=== PATIENT | female | born 1975 | race Caucasian/White ===

== ENCOUNTER 2018-08-16 14:58 | Emergency (ER) | payer OTHER, SELFPAY ==
[2018-08-16 14:59] VITALS: BP 191/115; PULSE 107; RESP 22; TEMP 36.3; O2SAT 98; BMI 26.1
[2018-08-16 15:08] VITALS: BP 205/125; PULSE 110; RESP 22; O2SAT 95; O2SAT 96
--- NOTE | 2018-08-16 15:18 | RAD_ITS ---
STUDY: X-RAY CHEST REASON FOR EXAM: Female, 43 years old. Short of breath. TECHNIQUE: PA and lateral views of the chest. COMPARISON: August 02, 2017 FINDINGS: The lungs are clear and expanded. There is no demonstrated pleural abnormality. Normal size heart. Normal mediastinum and aviva. Normal visualized pulmonary arteries. There is atherosclerotic calcification of the aortic arch . Normal visualized thoracic spine. Normal visualized ribs, clavicles, and shoulders. There are surgical clips within the right upper quadrant of the abdomen. RAD/Chest PA and Lateral IMPRESSION: No acute cardiopulmonary process. Electronically Signed: Laurie Yates MD at 16:26 EDT Tel , Service support ,
--- NOTE | 2018-08-16 15:18 | EKG12_ITS ---
Test Reason : SOB Blood Pressure : / mmHG Vent. Rate : 094 BPM Atrial Rate : 094 BPM P-R Int : 122 ms QRS Dur : 082 ms QT Int : 348 ms P-R-T Axes : 040 051 075 degrees QTc Int : 435 ms Normal sinus rhythm Nonspecific ST abnormality Abnormal ECG Confirmed by STEFFANY LEBLANC, IFRAH ([id number]), editor in chief newspaper [employer] BLANCO ([id number]) on 08/18/2018 1:43:15 PM Referred By: CRISELDA Confirmed By:IFRAH JETER MD
[2018-08-16 15:35] LABS: Absolute Lymphocyte Count 2.65 X10^3/ul (0.83-4.51); Absolute Neutrophil Count 3.6 X10^3/uL (2.0-7.7); Basophil# 0.02 X10^3/uL; Basophil% 0.3 % (0-1); Eosinophil# 0.07 X10^3/uL; Hematocrit 40.1 % (37-47); Hemoglobin 13.9 g/dl (12.0-15.0); Lymphocyte # 2.65 X10^3/ul (4.0); Mean Corp Hgb Conc 34.7 g/gl (32-36); Mean Corpuscular Hgb 32.1 pg (27.0-32.0); Mean Corpuscular Volume 92.6 fL (81-99); Mean Platelet Vol. 9.4 fl (6.2-12.0); Monocyte# 0.64 X10^3/uL; Monocyte% 9.2 % (0-10); Neutrophil # 3.59 X10^3/uL (2.7-7.7); Neutrophil % 51.4 % (47-70); Platelet Count 271 K/mm3 (150-450); RBC Distribution Width SD 39.8 fl (35.1-43.9); Red Blood Count 4.33 M/mm3 (4.2-5.4)
[2018-08-16] MEDS: Albuterol 2.5 MG/3 ML VIAL.NEB. INHALATION ×2 (15:35)
[2018-08-16] MEDS: Ipratropium/Albuterol Sulfate 3 ML AMPUL.NEB INHALATION (15:35)
[2018-08-16 15:36] VITALS: PULSE 94; RESP 16
[2018-08-16 15:37] LABS: POSITIVE COUNT NO; POSITIVE DIFFERENTIAL NO; POSITIVE MORPHOLOGY NO
[2018-08-16 15:52] LABS: Anion Gap 10 (5-15); BUN 9 mg/dL (7-18); BUN/Creat Ratio 11.5 RATIO (10-20); Calcium,Total 8.3 mg/dL (8.5-10.1); Chloride 102 mmol/L (98-107); Creatinine, Serum 0.78 mg/dL (0.55-1.02); EST Glomerular Filtration Rate 86 mL/min (>60); Est Glom Filt Rate - Afr Amer 104 mL/min (>60); Estimated Creatinine Clearance 81.96 ml/min; Glucose 172 mg/dL (74-106); Potassium 3.2 mmol/L (3.5-5.1); Sodium Level 136 mmol/L (136-145)
[2018-08-16] MEDS: amLODIPine 5 MG Tablet PO (15:54)
[2018-08-16 15:56] VITALS: BP 174/102; PULSE 102; RESP 20; O2SAT 93
[2018-08-16 16:08] LABS: BNP,B-Type NATRIURETIC PEPTIDE 65.7 pg/mL (0-100)
--- NOTE | 2018-08-16 16:42 | ED.VISSUMM ---
- ER Visit Summary Date of Service: 08/16/18 Chief Complaint: Shortness of breath History of Present Illness: The patient is a 43 F presenting for evaluation secondary to cough and shortness of breath. Patient has an underlying history of hypertension and asthma. Patient reports that she has been having issues with shortness of breath and cough over the course of the last week. Patient reports that she went to urgent care to over the weekend, was started on a course of azithromycin as well as steroids. She has been frequently using her inhaler at home. She also states that she has been having some elevation of her temperature 100.3 as well as elevated blood pressures. Patient reports that she supposed to start a new blood pressure medication today, but noted that she had blood pressures in the 190s and was recommended to come to the emergency department. Patient does state that she has mild amount of chest tightness associated with this she describes it as a mild type and intermittent sharp type pain that is not exertional. Review of systems otherwise negative. Physical Examination: Vital signs notable for blood pressure 191/115 pulse ox 98% heart rate 107. Well-nourished female no acute distress. Moist mucous membranes. Neck is supple heart was minimally tachycardic and regular. Lung sounds showed evidence of wheezes with no respiratory distress or retractions. Abdomen soft nontender no peripheral edema 2+ peripheral pulses bilaterally symmetric, skin normal color no rash remainder physical otherwise unremarkable. Test Results: EKG shows a sinus rhythm of [address] segments normal T waves no evidence of acute ischemia or arrhythmia. PA and lateral chest x-ray by my personal and radiology review is negative. CBC unremarkable, chemistry shows mild hypokalemia 3.2 troponin negative BNP negative Emergency Department Course and Treatment: Patient presented secondary to shortness of breath. She does have a history of hypertension with a recent admission for hypertensive urgency. A workup for endorgan damage was performed. EKG was negative, CBC chemistry troponin and BNP were negative, chest x-ray was normal. Patient was treated with albuterol Atrovent and Norvasc and had improvement of her respiratory symptoms and blood pressure on repeat evaluation. At this point I believe the patient likely just requires a little bit longer of a prednisone taper. She will be provided this. Patient was discharged in stable and improved condition. Disposition: Discharge Impression: 1. Asthma exacerbation 2. Hypertension This note was generated with [employer] software. It may contain incorrect words, spelling, and punctuation that were not noted in review of the chart prior to signing 0 ED Disposition - Plan for ED Patient: Disposition: Home or Assisted Living Chief Complaint: Shortness of Breath Diagnosis: Asthma exacerbation Instructions: ED Bronchitis Asthmatic Prescriptions: MethylPREDNISolone DosePak [Medrol DosePak] 4 mg PO UD #1 box Referrals: Bernarda Amaro DO [Primary Care Provider] - 5-7 Days
[2018-08-16 16:58] VITALS: BP 178/94; PULSE 95; RESP 20; O2SAT 94
== END 2018-08-16 17:00 | disposition home or self-care (01) ==
PROVIDERS: Emergency Provider Emergency Medicine
DX: J45.901 Unspecified asthma with (acute) exacerbation (principal); I10 Essential (primary) hypertension; Z79.899 Other long term (current) drug therapy; Z72.0 Tobacco use
CPT/HCPCS: 71046; 80048; 83880; 84484; 85025; 93005; 94640; 99285; A4216

== ENCOUNTER 2018-09-04 21:39 | Emergency (ER) | payer OTHER, SELFPAY ==
[2018-09-04 21:39] VITALS: BP 167/98; PULSE 93; RESP 17; TEMP 37; O2SAT 98; BMI 25.9
[2018-09-04] MEDS: Ipratropium/Albuterol Sulfate 3 ML AMPUL.NEB INHALATION (23:39)
[2018-09-04 23:40] VITALS: PULSE 98; RESP 16
[2018-09-04] MEDS: Azithromycin 250 MG Tablet 500 MG PO (23:50)
--- NOTE | 2018-09-05 00:43 | ED.VISSUMM ---
- ER Visit Summary Date of Service: 09/05/18 Chief Complaint: Shortness of breath History of Present Illness: The patient is a 43 F who presents with shortness of breath that is been getting worse over the past 2 days. Patient admits to a cough with some clear sputum. Patient admits to some pain in her chest with coughing but denies any other chest pain. Patient states her breathing is worse with any exertion. Patient admits to some subjective chills but she did not take her temperature at home. Patient also admits to a mild headache. Patient states she was recently treated with bronchitis and started to feel better but now she feels like it is coming back. Patient smokes 1 pack of cigarettes per day. Physical Examination: Vital signs are stable. Patient is afebrile. Patient is in no acute distress. Oral mucosa is pink and moist. Neck is supple. Trachea is midline. There is no JVD noted. Heart was regular rate and rhythm. Lungs showed diffuse expiratory wheezing. There is good respiratory effort noted. Abdomen is soft. Bowel sounds are normal. There is no tenderness. Cranial nerves II through XII are intact. There are no focal motor or sensory deficits noted. The remaining physical exam is within normal limits. Emergency Department Course and Treatment: Patient was given a DuoNeb aerosol here. Patient felt better on reevaluation. Patient was given her first dose of Zithromax here. Patient was given a prescription for Zithromax. Patient was instructed to follow-up with her primary care physician in 7-10 days. Patient was advised to quit smoking. Patient understood and was agreeable with the plan. All questions were answered. Disposition: Discharge home Impression: Acute bronchitis This note was generated with [employer] dictation software. It may contain incorrect words, spelling, and punctuation that were not noted in review of the chart prior to signing ED Disposition - Plan for ED Patient: Disposition: Home or Assisted Living Chief Complaint: Shortness of Breath Diagnosis: Bronchitis, Tobacco use disorder Instructions: ED Bronchitis Asthmatic Prescriptions: Azithromycin [Zithromax] 250 mg PO DAILY #4 tab Referrals: Bernarda Amaro DO [NON-STAFF] -
[2018-09-05 00:50] VITALS: RESP 16
--- NOTE | 2018-09-05 13:41 | CM.ED ---
ED CALLBACK: Follow-up call placed to patient with no answer. Voicemail left with return contact information.
== END 2018-09-05 00:59 | disposition home or self-care (01) ==
PROVIDERS: Emergency Provider Emergency Medicine
DX: J20.9 Acute bronchitis, unspecified (principal); J45.909 Unspecified asthma, uncomplicated; I10 Essential (primary) hypertension; F32.9 Major depressive disorder, single episode, unspecified; F41.9 Anxiety disorder, unspecified; F17.210 Nicotine dependence, cigarettes, uncomplicated; Z79.899 Other long term (current) drug therapy
CPT/HCPCS: 94640; 99282

== ENCOUNTER 2018-09-12 08:33 | Emergency (ER) | payer OTHER, SELFPAY ==
[2018-09-12 08:34] VITALS: BP 172/104; PULSE 86; RESP 16; TEMP 36.4; O2SAT 93; BMI 25.9
--- NOTE | 2018-09-12 08:53 | RAD_ITS ---
STUDY: X-RAY CHEST REASON FOR EXAM: Female, 43 years old. Cough. TECHNIQUE: PA and lateral views of the chest. COMPARISON: Comparison is made with prior study dated August 16, 2019. FINDINGS: Hyperinflation. Stable mild increased markings in the lingular segment of the left upper lobe suggestive of mild scarring. There is no demonstrated pleural abnormality. Normal size heart. Normal mediastinum and aviva. Normal visualized pulmonary arteries. Normal visualized aortic arch and descending thoracic aorta. Normal visualized thoracic spine. Normal visualized ribs, clavicles, and shoulders. Surgical clips are seen in the right upper quadrant most likely secondary to prior cholecystectomy. RAD/Chest PA and Lateral IMPRESSION: Hyperinflation. No acute abnormality is seen. Electronically Signed: Guy Roger MD at 9:26 EDT Tel [phone], Service support ,
--- NOTE | 2018-09-12 08:56 | ED.DCSUM_ITS ---
- ER Visit Summary Date of Service: 09/12/18 Chief Complaint: Cough History of Present Illness: The patient is a 43 F who states for the past month she has been battling a cough. On 08/15 she was seen in urgent care given a prescription for Z-Mario and prednisone. Diagnosis at that time was bronchitis. 918 she was seen in the emergency department had negative labs and a chest x- ray. 09/04 she was seen in the emergency department again and given a second Z- Mario. Today, 09/12, she was sent to the emergency department from urgent care due to a pulse ox of 90% after breathing treatments. Patient is a longtime smoker and her last cigarette was last evening at approximately 2300 hrs. Patient notes some rhinorrhea. Occasional sputum production. No fevers. She states that she used to get frequent bronchitis but has not had this for 6 years. Reportedly has a history of asthma and was on Symbicort but it has . Physical Examination: Afebrile vital signs are stable pulse oximetry is at 93% on room air Gen: Well-nourished well-developed Head: Normocephalic atraumatic Eyes: Perrl EOMI ENT: TMs clear turbinate edema moist mucous membranes Neck: Supple no lymphadenopathy no JVD nontender CVS: Regular rate rhythm no murmurs normal S1-S2 Respiratory: No distress clear to auscultation bilaterally chest nontender persistent dry cough Abdomen: Soft nontender nondistended normal bowel sounds no masses Back: Nontender Extremity: Nontender no edema Skin: Normal color no rash Neuro: alert orientated ?3 CN II-XII intact normal strength sensation reflexes gait cerebellar Psych: Normal affect normal mood Test Results: Chest x-ray shows increased markings in the lingula compared to her chest x-ray from last month. Emergency Department Course and Treatment: Patient ambulates not hypoxic at about 95%. She received a DuoNeb but her cough is improved. Patient has had antibiotics in the past month and evidence of increased markings probable pneumonia in the left lingula. Therefore we will choose Levaquin. She is almost out of her albuterol MDI and I will write for another one and for a spacer as she is not currently using one. I will also place her on tapering dose of prednisone. She is on the schedule to see primary care on Wednesday. Return if worsening or concerns. Impression: 1. Pneumonia This note was generated with [employer] dictation software. It may contain incorrect words, spelling, and punctuation that were not noted in review of the chart prior to signing ED Disposition - Plan for ED Patient: Disposition: Home or Assisted Living Chief Complaint: Cough Instructions: ED Pneumonia Adult Prescriptions: Albuterol Inhaler [Ventolin Hfa] 2 puff INHALATION Q4H PRN PRN #1 inhaler PRN Reason: Wheezing Levofloxacin [Levaquin] 750 mg PO DAILY #5 tablet Prednisone [Deltasone] 60 mg PO DAILY #24 tablet Referrals: Abbe Clark MD [STAFF PHYSICIAN] - (as scheduled)
[2018-09-12 09:14] VITALS: RESP 20; O2SAT 95
[2018-09-12] MEDS: Ipratropium/Albuterol Sulfate 3 ML AMPUL.NEB INHALATION (09:25)
[2018-09-12 09:28] VITALS: PULSE 102; RESP 18
[2018-09-12 10:28] VITALS: PULSE 95; RESP 15; O2SAT 100
--- NOTE | 2018-09-13 09:59 | CM.ED ---
ED CALLBACK: Follow-up call placed to patient with no answer. Voicemail left with return contact information.
== END 2018-09-12 11:00 | disposition home or self-care (01) ==
PROVIDERS: Emergency Provider Emergency Medicine
DX: J18.9 Pneumonia, unspecified organism (principal); J45.909 Unspecified asthma, uncomplicated; I10 Essential (primary) hypertension; F17.210 Nicotine dependence, cigarettes, uncomplicated; Z79.899 Other long term (current) drug therapy
CPT/HCPCS: 71046; 94640; 94760; 99282

== ENCOUNTER 2019-07-25 20:18 | Emergency (ER) | payer OTHER, SELFPAY ==
[2019-07-25 20:18] VITALS: BP 125/74; PULSE 99; RESP 15; TEMP 36.6; O2SAT 95; BMI 27.9
--- NOTE | 2019-07-25 20:35 | EKG12_ITS ---
Test Reason : DIZZINESS Blood Pressure : / mmHG Vent. Rate : 087 BPM Atrial Rate : 087 BPM P-R Int : 134 ms QRS Dur : 082 ms QT Int : 370 ms P-R-T Axes : 058 046 048 degrees QTc Int : 445 ms Normal sinus rhythm Normal ECG Confirmed by RENETTA MALDONADO ([id number]), senior technical editor KIMBERLEY NGUYỄN ([id number]) on 08/01/2019 10:04:15 AM Referred By: RONALD Confirmed By:RENETTA MALDONADO
[2019-07-25 20:36] LABS: Bedside Glucose 228 mg/dL (70-110)
--- NOTE | 2019-07-25 20:49 | ED.VIS.GEN ---
History of Present Illness Chief Complaint: Numb/Ting Informant: Patient Onset: Weeks Context: Gradual Onset Timing: Intermittent Current Severity: Moderate Maximum Severity: Moderate Narrative: The patient presents to the emergency department with elevated blood sugar and paresthesias. She states that she was a prediabetic and has been using diet but is never been diagnosed as a form of diabetic and is not on medications. She states over the past 2 weeks, she is noticed that her sugars been running in the 200s and 300s. She does admit to increased urinary frequency. She states that she is also had some generalized weakness is been feeling paresthesias in bilateral arms and legs. She denies any chest pain or shortness of breath. She does admit to occasional alcohol use. She denies headaches, visual change, fevers, or chills. Prior similar symptoms: No Recent Illness/Hospitalization: No Past Medical History - Allergies and Home Meds Allergies/Adverse Reactions: Allergies No Known Allergies Allergy (Verified 07/25/19 20:18) Primary Care Physician: Abbe Clark MD [Primary Care Provider] - 2 Days Prior records reviewed: Yes Past Medical History: - - htn Surgical History: cholecystectomy, - - endoscopic drainage of a pancreatic cyst. Smoking Status: Current every day smoker - Family History Maternal Family History: Reports: No pertinent history Paternal Family History: Reports: Heart Disease, Hypertension Review of Systems General: Reports: Malaise Eyes: Denies: Visual changes - bilaterally, Diplopia ENT: Denies: Rhinorrhea, Sore throat Cardiovascular: Denies: Chest pain, Palpitations Respiratory: Denies: Dyspnea, Cough, Dyspnea on exertion Gastrointestinal: Reports: Nausea Genitourinary: Denies: Dysuria, Hematuria, Frequency Musculoskeletal: Denies: Back pain, Extremity Pain Skin: Denies: Rash, Wounds Neurological: Reports: Parasthesia Physical Exam Vital Signs/Narrative: Vital Signs Temp Pulse Resp BP Pulse Ox 07/25/19 20:18 97.9 F 99 15 125/74 H 95 Inital Vital Signs reviewed: Yes General: Well nourished, Well developed, No Acute Distress Head: Normocephalic, Atraumatic Eyes: Perrl, EOMI ENT: Moist mucous membranes, No rhinorrhea Neck: Supple, Nontender Cardiovascular: Regular rate, Regular rhythm, No murmurs Respiratory: No distress, CTA bilaterally, Chest nontender Abdomen: Soft, Nontender, Nondistended, Normal bowel sounds Back: Nontender, Normal Inspection Extremities: Nontender, No edema Skin: Normal color, No rash Neurological: Alert, Oriented x3, Cranial nerves II-XII grossly intact, Normal Strength, Normal Sensation Psychological: Normal affect, Normal Mood Diagnostic/Tx/Re-eval Abnormal Lab Results 07/25/19 07/25/19 07/25/19 20:27 20:45 20:45 WBC RBC Hgb Hct MCV MCH MCHC RDW Std Deviation RDW Coeff of Braxton Plt Count MPV Immature Gran % (Auto) Neut % (Auto) Lymph % (Auto) [place] % (Auto) Eos % (Auto) Baso % (Auto) Absolute Neuts (auto) Absolute Lymphs (auto) Nucleated RBC % Sodium Potassium Chloride Carbon Dioxide Anion Gap BUN Creatinine Estim Creat Clear Calc Est GFR (MDRD) Af Amer Est GFR (MDRD) Non-Af BUN/Creatinine Ratio Glucose Calcium Total Bilirubin AST ALT Alkaline Phosphatase Total Protein Albumin Globulin Albumin/Globulin Ratio Urine Color Straw Urine Clarity Clear Urine pH 6.5 Ur Specific [place] 1.005 Urine Protein Negative Urine Glucose (UA) 250 H Urine Ketones Negative Urine Occult Blood Negative Urine Nitrite Negative Urine Bilirubin Negative Urine Urobilinogen Normal Ur Leukocyte Esterase Negative Urine RBC 0 SEEN Urine WBC 0 SEEN Ur Squamous Epith Cells 0 SEEN Urine Bacteria 0 SEEN Urine Mucus 0 SEEN Urine Test Negative Ethyl Alcohol POC Glucose 228 H 07/25/19 07/25/19 07/25/19 20:50 20:50 20:50 WBC 8.4 RBC 4.47 Hgb 14.4 Hct 42.2 MCV 94.4 MCH 32.2 H MCHC 34.1 RDW Std Deviation 40.7 RDW Coeff of Braxton 11.7 Plt Count 257 MPV 10.0 Immature Gran % (Auto) 0.200 Neut % (Auto) 54.7 Lymph % (Auto) 31.4 [place] % (Auto) 9.1 Eos % (Auto) 4.2 Baso % (Auto) 0.4 Absolute Neuts (auto) 4.6 Absolute Lymphs (auto) 2.63 Nucleated RBC % 0 Sodium 141 Potassium 3.5 Chloride 109 H Carbon Dioxide 24.0 Anion Gap 8 BUN 9 Creatinine 0.62 Estim Creat Clear Calc 102.07 Est GFR (MDRD) Af Amer 136 Est GFR (MDRD) Non-Af 112 BUN/Creatinine Ratio 14.5 Glucose 222 H Calcium 8.5 Total Bilirubin 0.20 AST 14 L ALT 27 Alkaline Phosphatase 80 Total Protein 7.5 Albumin 3.5 Globulin 4.0 Albumin/Globulin Ratio 0.9 Urine Color Urine Clarity Urine pH Ur Specific [place] Urine Protein Urine Glucose (UA) Urine Ketones Urine Occult Blood Urine Nitrite Urine Bilirubin Urine Urobilinogen Ur Leukocyte Esterase Urine RBC Urine WBC Ur Squamous Epith Cells Urine Bacteria Urine Mucus Urine Test Ethyl Alcohol 248.0 POC Glucose - Rhythm Strip Rhythm Strip: Sinus Rhythm Rate: 80 Ectopy: None - EKG Initial EKG Interpretation: Sinus Rhythm, No Acute Injury Pattern Prior: Unchanged - Medical Decision Making Patient presents with diffuse paresthesias and generalized weakness. Her blood sugars been running high. She states that she does have a history of diabetes, but has been off her medication for some time because she lost her insurance. Metabolic work-up was pursued. I do feel that the patient's symptoms are likely multifactorial. My suspicion is that this is dehydration coupled with her uncontrolled diabetes and then intermittent alcohol use. With fluids, the patient symptoms are improved. Her EKG was unremarkable. She has a normal anion gap and electrolytes. I am going to restart the patient on her metformin. She was counseled on importance of diet and exercise. She will be discharged to follow-up with primary care for reevaluation. Impression 1. Hyperglycemia 2. Paresthesias ED Disposition - Plan for ED Patient: Instructions: DIABETES, General Info Prescriptions: Metformin HCl 500 mg PO BID #60 tab Prescription Printed Referrals: Abbe Clark MD [Primary Care Provider] - 2 Days
[2019-07-25] MEDS: 0.9% Normal Saline 1,000 ML 1000 ML IV (20:50)
[2019-07-25 20:58] LABS: Bacteria 0 SEEN /hpf (None Seen); Mucous, Urine 0 SEEN /hpf (<or=2+); Red Blood Cells-Urine 0 SEEN /hpf (0-5); Squamous Epithelial Cells - UA 0 SEEN /hpf (5-10); White Blood Cells 0 SEEN /hpf (0-5)
[2019-07-25 21:00] LABS: Absolute Lymphocyte Count 2.63 X10^3/uL (0.83-4.51); Absolute Neutrophil Count 4.6 X10^3/uL (2.0-7.7); Basophil# 0.03 X10^3/uL; Basophil% 0.4 % (0-1); Eosinophil# 0.35 X10^3/uL; Eosinophils% 4.2 % (0-5); Hematocrit 42.2 % (37-47); Hemoglobin 14.4 g/dL (12.0-15.0); Lymphocyte # 2.63 X10^3/ul (4.0); Lymphocyte % 31.4 % (19-41); Mean Corp Hgb Conc 34.1 g/dL (32-36); Mean Corpuscular Hgb 32.2 pg (27.0-32.0); Mean Corpuscular Volume 94.4 fL (81-99); Monocyte# 0.76 X10^3/uL; Monocyte% 9.1 % (0-10); NRBC Flagged by Analyzer 0 % (0-5); Neutrophil # 4.58 X10^3/uL (2.7-7.7); Neutrophil % 54.7 % (47-70); Platelet Count 257 K/mm3 (150-450); RBC Distribution Width CV 11.7 % (11.6-14.6); RBC Distribution Width SD 40.7 fl (35.1-43.9); Red Blood Count 4.47 M/mm3 (4.2-5.4); White Blood Count 8.4 K/mm3 (4.4-11.0)
[2019-07-25 21:01] LABS: Color, Urine Straw (Yellow); Glucose, Dipstick 250 mg/dl (Normal); Ketone-Dipstick Negative (Negative); Leukocyte Esterase-Dipstick Negative /ul (Negative); Nitrite-Dipstick Negative (Negative); Occult Blood-Urine Negative /ul (Negative); Protein-Dipstick Negative (Negative); Specific Gravity, Urine 1.005 (1.002-1.030); Urine Bilirubin Dipstick Negative (Negative); Urine Clarity Clear (Clear); Urine Urobilinogen Normal (Normal); Urine pH 6.5 (5.0 - 8.0)
[2019-07-25 21:05] LABS: Internal QC Validated? YES +Cl - CLEAR BKGD; Pregnancy, Urine Negative Negative
[2019-07-25 21:16] LABS: ALB/GLOB Ratio 0.9 RATIO (0.9-2.4); AST(SGOT) 14 U/L (15-37); Alanine Aminotransfer ALT/SGPT 27 U/L (13-56); Albumin, Serum 3.5 g/dL (3.2-5.0); Alkaline Phosphatase 80 U/L (45-117); Anion Gap 8 (5-15); BUN 9 mg/dL (7-18); BUN/Creat Ratio 14.5 RATIO (10-20); Calcium,Total 8.5 mg/dL (8.5-10.1); Chloride 109 mmol/L (98-107); Creatinine, Serum 0.62 mg/dL (0.55-1.02); EST Glomerular Filtration Rate 112 mL/min (>60); Est Glom Filt Rate - Afr Amer 136 mL/min (>60); Estimated Creatinine Clearance 102.07 ml/min; Glucose 222 mg/dL (74-106); Potassium 3.5 mmol/L (3.5-5.1); Protein, Total 7.5 g/dL (6.4-8.2); Sodium Level 141 mmol/L (136-145)
[2019-07-25 21:46] VITALS: BP 128/72; PULSE 84; RESP 18; O2SAT 98
== END 2019-07-25 21:51 | disposition home or self-care (01) ==
LOC: ED 20:54
PROVIDERS: Emergency Provider Emergency Medicine; Family Provider Internal Medicine; PCP Internal Medicine
DX: E11.65 Type 2 diabetes mellitus with hyperglycemia (principal); R20.2 Paresthesia of skin; I10 Essential (primary) hypertension; F17.200 Nicotine dependence, unspecified, uncomplicated; Z79.84 Long term (current) use of oral hypoglycemic drugs; Z79.899 Other long term (current) drug therapy
CPT/HCPCS: 80053; 80320; 81001; 81025; 82962; 85025; 93005; 96360; 99285; J7030; G0480

== ENCOUNTER → 2020-10-14 08:28 | Outpatient (CLI) | payer BC, SELFPAY ==
[2020-10-14 10:47] LABS: ALB/GLOB Ratio 0.9 RATIO (0.9-2.4); AST(SGOT) 11 U/L (15-37); Alanine Aminotransfer ALT/SGPT 31 U/L (13-56); Albumin, Serum 3.6 g/dL (3.2-5.0); Alkaline Phosphatase 74 U/L (45-117); Anion Gap 8 (5-15); BUN 14 mg/dL (7-18); BUN/Creat Ratio 18.9 RATIO (10-20); Calcium,Total 9.1 mg/dL (8.5-10.1); Chloride 99 mmol/L (98-107); Cholesterol 214 mg/dL (200); Creatinine, Serum 0.74 mg/dL (0.55-1.02); EST Glomerular Filtration Rate 91 mL/min (>60); Est Glom Filt Rate - Afr Amer 110 mL/min (>60); Glucose 198 mg/dL (74-106); High Density Lipoprotein 53 mg/dL; Potassium 4.2 mmol/L (3.5-5.1); Protein, Total 7.6 g/dL (6.4-8.2); Sodium Level 136 mmol/L (136-145); Triglycerides 178 mg/dL; Very Low Density Lipoprotein 36 mg/dL (5-40)
[2020-10-14 11:10] LABS: Hemoglobin A1c 6.6 % (3.8-5.6)
--- OUTSIDE RECORDS SUMMARY | 2020-11-20 05:43 | XMS RPT_ITS ---
:1975 Author Organization OHIP Care Team Providers Name Role Phone TESTRAKE Attending Unavailable CLARK, H Primary Care Unavailable TESTRAKE Referring Unavailable CLARK, H Primary Care Unavailable TESTRAKE Referring Unavailable CLARK, H Primary Care Unavailable OLDER, (COMBUSTION ENGINEER) Attending Unavailable CLARK, H Primary Care Unavailable GUALBERTO (PT) Attending Unavailable TESTRAKE Referring Unavailable TESTRAKE Attending Unavailable CLARK, H Primary Care Unavailable CLARK, H Primary Care Unavailable TESTRAKE Attending Unavailable CLARK, H Primary Care Unavailable TESTRAKE Referring Unavailable CLARK, H Primary Care Unavailable CLARK, H Referring Unavailable CLARK, H Primary Care Unavailable OLDER, (COMBUSTION ENGINEER) Referring Unavailable CLARK, H Primary Care Unavailable OLDER, (COMBUSTION ENGINEER) Referring Unavailable CLARK, H Primary Care Unavailable OLDER, (COMBUSTION ENGINEER) Referring Unavailable CLARK, H Primary Care Unavailable OLDER, (COMBUSTION ENGINEER) Referring Unavailable CLARK, H Primary Care Unavailable OLDER, (COMBUSTION ENGINEER) Referring Unavailable CLARK, H Primary Care Unavailable TESTRAKE Attending Unavailable CLARK, H Primary Care Unavailable TESTRAKE Referring Unavailable CLARK, H Primary Care Unavailable TESTRAKE Referring Unavailable TESTRAKE Attending Unavailable TESTRAKE Referring Unavailable TESTRAKE Attending Unavailable CLARK, H Primary Care Unavailable TESTRAKE Referring Unavailable CLARK, H Primary Care Unavailable CLARK, H Primary Care Unavailable OLDER, (COMBUSTION ENGINEER) Referring Unavailable CLARK, H Primary Care Unavailable HEIDENREICH, (COMBUSTION ENGINEER) Attending Unavailable CONNELL, (COMBUSTION ENGINEER) Referring Unavailable CLARK, H Primary Care Unavailable CLARK, H Primary Care Unavailable TESTRAKE Referring Unavailable GANTA Attending Unavailable CLARK, H Primary Care Unavailable TESTRAKE Referring Unavailable CLARK, H Primary Care Unavailable TESTRAKE Attending Unavailable TESTRAKE Referring Unavailable CLARK, H Primary Care Unavailable Daysi MARINA (PA) Referring Unavailable CLARK, H Primary Care Unavailable TESTRAKE Referring Unavailable MARIN, H Primary Care Unavailable PROBLEMS PROBLEMS DATE TYPE CONDITION / CODE ATTENDING STATUS SOURCE 09/17/2020 Active MOUNIKA (obstructive HEIDENREICH, Active [facility] sleep apnea) / ALEXANDRA ([facility]) Clinic G47.33(ICD-10) [place] 08/27/2020 Active Anterior pleuritic NA Active [facility] pain / Clinic R07.81(ICD-10) [place] 02/13/2020 Active Posterior tibial NA Active [facility] tendinitis of left Clinic lower extremity / [facility] M76.822(ICD-10) 08/31/2019 Active Accessory NA Active [place] navicular bone of Clinic both feet / [place] Q74.2(ICD-10) 07/19/2020 Active Suspected COVID-19 NA Active [facility] virus infection / Clinic Z20.828(ICD-10) [place] 07/03/2020 Active Abnormal mammogram NA Active [facility] and / R92.8(ICD-10) Clinic [place] 06/24/2020 Active Snoring / NA Active [place] R06.83(ICD-10) [facility] 06/24/2020 Active Excessive daytime NA Active [facility] sleepiness / Clinic G47.19(ICD-10) [place] 06/21/2020 Active Encounter for NA Active [place] screening [facility] mammogram for [place] malignant neoplasm of breast / Z12.31(ICD-10) 06/21/2020 Active Nocturnal leg NA Active [place] cramps / Clinic G47.62(ICD-10) [place] 06/07/2020 Active Follow Up / OLDER, DANAY ([facility]) Active [facility] UNK(Unknown) Clinic [place] 02/19/2016 Active Type 2 diabetes NA Active [place] mellitus without Clinic complication, [place] without long-term current use of insulin (HCC) / E11.9(ICD-10) 02/05/2020 Active Pain of joint of NA Active [facility] left ankle and Clinic foot / [place] M25.572(ICD-10) 08/31/2019 Active Posterior tibialis NA Active [facility] tendinitis of both Clinic lower extremities [facility] / M76.821(ICD-10) 08/31/2019 Active Posterior tibialis NA Active [facility] tendinitis of both Clinic lower extremities [facility] / M76.822(ICD-10) 01/25/2020 Active Diminished pulses NA Active [facility] in lower extremity Clinic / R09.89(ICD-10) [facility] PROCEDURES PROCEDURES No Procedure Records FoundRESULTS RESULTS PROGRESS Observed: 09/17/2020 Status: COMPLETED Source: [place] 2:00 PM [facility] REPOSITORY HNO ID: [id number] Author: Alexandra Bhakta Cnp) Matt Service: ? Author Type: Nurse Practitioner Type: Progress Not es Filed: 09/17/2020 2:46 PM Note Text: [facility] New Patient Evalua tion PATIENT NAME: Joseph Osman DATE OF SERVICE: O ctober 2019 REASON FOR VISIT: MOUNIKA HPI: Joseph Osman i s a 45 year old female. Sleep-related hist ory: SLEEP-WAKE SCHEDUL E She is a self-desc ribed both morning and night time Bedtime: 10-11 PM. She has a hard time falling asleep. Time to fall asleep: 60+ mins Wake time: 5:30 AM , with an alarm. After falling asle ep: she wakes up 2-4 time(s) per night, because of choking or gasping for air and the need to urinate. On weekends, she t ends to stay up until 12-2 AM and sleeps until 10 AM. Average total slee p time (in a 24 hour period): 3-9 hours. SLEEP-RELATED DETA ILS Preferred sleep po sition: side or back Breathing disturba nces and other behaviors during sleep: snoring, moving around a lot, freq uent leg movements and acting out dreams. Bruxism: has dentu res GERD or aspiration : No Waking up with hea rt pounding or racing: Yes, rarely Anxiety or ruminat ion: Yes She reports having an urge to move the legs. The urge to move the legs only occurs in the evening or nighttime. The urge to move the legs begins or worsens during periods of rest or inactivity (e.g. lying or sitting). The urge to move t he legs is partially or totally relieved by movements such as walking or stretching, at least as long as the activity continues. The urge to move t he legs occurs 2-3 nights per week and began 6 months ago. There is his tory of iron deficiency or anemia 20 years ago. She has been told that she has leg kicking during sleep. The patient report s having had the following: Night terrors. John quency: 3-4 times per year, content of dreams change Reports enuresis 1 -2 times in the past year. Excessive daytime sleepiness / fatigue is a problem. Excessive Daytime sleepiness/fatigue has been a problem for 1 year. There is no history of a viral illness or significant head injury prior to the start of daytime sleepiness. 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 Occasionally picks up 2nd shift. She does have diff iculty with memory and denies difficulty with concentration. She denies falling asleep or dozing off when driving. She does not take naps. She does drink 1-3 caffeinated beverages per day. There has not been a recent change in weight. [facility] SLE[facility] Sleep Questions Reason for visit: Difficulty falling or staying asleep or poor sleep quality, Excessive daytime sleepiness Average hours slep t in 24 hours: 5 Accidents or near accidents due to drowsy drivin [place] Sleepiness Scale 09/16/2020 Score 17 (severe d aytime sleepiness) KP Score 17 PROMIS CAT Sleep D isturbance 09/16/2020 PROMIS Sleep Distu rbance T-Score 63 (moderate) Insomnia Severity Index 09/16/2020 Score 19 Restless Leg Syndr ome 09/16/2020 Score 12 PHQ-9 06/18/201601/14/2020 Score 1 3 8 PROMIS Global Heal th - (T-Scores - the mean of general population = 50. Five points is a c linically meaningful difference.) 06/17/2017 01/14/2020 06/05/2020 Physical T-Score 4 2.3 37.4 34.9 Mental T-Score 36. 3 45.8 43.5 PAST TREATMENTS: none PRIOR SLEEP STUDIE S: A Home Sleep Test (HST) performed on 06/25/2020 revealed an AHI of 10.7; supine index of 14 .3; and a minimum oxygen saturation of 83%. OTHER RELEVANT LAB S AND STUDIES: Hemoglobin Date Value Ref Ran ge Status 11/08/2015 12.4 11 .5 - 15.5 g/dL Final 08/13/2015 13.9 11 .5 - 15.5 g/dL Final 12/28/2012 13.4 11 .5 - 15.5 g/dL Final Hematocrit Date Value Ref Ran ge Status 11/08/2015 35.4 (L ) 36.0 - 46.0 % Final 08/13/2015 40.7 36 .0 - 46.0 % Final 12/28/2012 39.3 36 .0 - 46.0 % Final PAST MEDICAL HISTO RY Diagnosis Date - Asthma - Depression - Hypertension 09/2014 - Hypertriglycerid emia - Insomnia - Irritable bowel syndrome with diarrhea 06/24/2016 - MOUNIKA (obstructive sleep apnea) mild 10/09/2014 - Pancreatitis 201 1 Recurrent. - Pseudocyst of pa ncreas 2010 aspirated - Tobacco use 08/30 - Type 2 diabetes mellitus without complication (HCC) 02/19/2016 - Vitamin D defici ency PAST SURGICAL HIST ORY Procedure Laterali ty Date - CHOLECYSTECTOMY 02/2011 laparoscopic - COLONOSCOP W/ OR W/O RUST SPEC 07/18/2014 Colonoscopy - COLONOSCOP W/ OR W/O RUST SPEC 09/11/15 Colonoscopy - EGD EUS GEN ANES 07/21/2012 FNA pseudocyst - EGD W/O OR W/BRU SH/WASH 07/18/2014 EGD - PAST SURGICAL HI STORY OF 2004 dental extraction - PAST SURGICAL HI STORY OF 2011 drainage of pancr eatic cyst ACTIVE PROBLEM LIS T Depression Tobacco Use Vitamin D Deficien cy Hypertension Type 2 Diabetes Me llitus Without Complication (Hcc) Posterior Tibialis Tendinitis of Both Lower Extremities Accessory Navicula r Bone of Both Feet Posterior Tibial T endonitis Allergies As of Da te: 09/17/2020 (No Known Allergie s) Fully Assessed CURRENT MEDICATION S: cyclobenzaprine (F LEXERIL) 10 mg tablet Take 1 tablet by mouth three times daily as needed fo r Muscle Spasm. naproxen (NAPROSYN ) 500 mg tablet Take 1 tablet by mouth twice daily as needed (pain/infla mmation, take with food.). ondansetron orally disintegrating (ZOFRAN ODT) 4 mg disintegrating tablet Take 1 tablet by m outh every 6 hours as needed for Nausea/Vomiting. metFORMIN (GLUCOPH AGE) 500 mg tablet Take 1 tablet by mouth twice daily. buPROPion XL (WELL BUTRIN XL) 150 mg 24 hr tablet Take 1 tablet by mouth once daily. PARoxetine (PAXIL) 40 mg tablet Take 1 tablet by mouth once daily. hydrOXYzine HCl (A TARAX) 25 mg tablet Take 1 tablet by mouth every 6 hours as needed for Itch ing/Rash or Anxiety. traZODone (DESYREL ) 50 mg tablet Take 1 tablet by mouth daily at bedtime. lisinopril (ZESTRI L, PRINIVIL) 40 mg tablet Take 1 tablet by mouth once daily. amLODIPine (NORVAS C) 10 mg tablet Take 1 tablet by mouth once daily. metoprolol succina te ER (TOPROL XL) 50 mg 24 hr tablet Take 1 tablet by mouth once daily. Trazodone 50 night ly. Reports it helps at times Review of Systems HENT: Positive for congestion. Cardiovascular: Ne gative for palpitations. Gastrointestinal: Negative for heartburn. Genitourinary: Pos itive for nocturia. Neurological: Posi tive for headaches. SOCIAL HISTORY: Social History Tobacco Use - Smoking status: Former Smoker Packs/day: 0.50 Years: 21.00 Pack years: 10.5 0 Types: Cigarette s Start date: 1996 Quit date: 2019 Years since quit tin.1 - Smokeless tobacc o: Never Used - Tobacco comment: stopped 3 weeks ago Substance Use Topi cs - Alcohol use: Yes Alcohol/week: 1. 3 standard drinks Types: 1 Mixed D rinks per week Frequency: 2-4 t imes a month Drinks per sessi on: 1 or 2 Binge frequency: Less than monthly Comment: in donnie very since 2017 - Drug use: No Comment: No drug s FAMILY HISTORY: FAMILY HISTORY Problem Relation A ge of Onset - Osteoporosis Mot her - Cancer Mother uterine or ce rvix - Hypertension Fat her - Diabetes Paterna l Grandmother - Stroke Paternal Grandfather - Hypertension Pat ernal Grandfather - No Known Problem s Brother There is no family history of sleep disorders. PHYSICAL EXAMINATI ON: Vital Signs: Defer red due to virtual visit via zoom General appearance : NAD Mental status: la ke and alert Constitutional: W ell groomed Skin: Dry and int act Neuro: Speech flu ent. IMPRESSION/PLAN: G47.33 MOUNIKA (obstru ctive sleep apnea) (primary encounter diagnosis) G47.34 Nocturnal h ypoxia D50.9 Iron deficie ncy anemia, unspecified iron deficiency anemia type G25.81 Restless le gs syndrome Joseph Osman is a [age] year old female with a PMH of HTN, DM 2, tobacco use, depression and anx iety who presents via zoom for new patient evaluation. A Home Sleep Test (HST) performed on 06/25/2020 revealed at least mild MOUNIKA (AHI of 10.7) that was associated with a minimum oxygen saturation of 83%. -Mrs. Osman reports EDS starting approximately 1 year ago. Associated symptoms include s noring, moving in the bed, leg kicking, RLS symptoms, insomnia, and talk ing in her sleep. She reports sleep latency to be 60 mins or more and t akes trazodone for insomnia. Reports trazodone helps sometimes. She rosenthal spects TST to be between 3-9 hours. She denies family history of MOUNIKA. -HST ordered by pc p reviewed. Discussed pathophysiology of MOUNIKA and CSA and co-morbidities including HTN and DM. Reviewed treatment options including pap ther apy, weight loss and oral appliance. Mrs. Osman reports near lifelong snor ing, therefore I suspect weight loss won't full treat the sleep apnea. Due to edentulism, oral appliance is not an option. -She reports RLS s ymptoms happen approximately 2-3 times per week and can contribute to her insomnia. Will place iron and ferritin orders to evaluate. She has a history of anemia many years prior. Discussed iron treatment. -Reviewed pap titr ation study to evaluate hypoxia vs. Starting pap therapy and doing nocturna l study. Due to central events and hypoxia Mrs. Osman and I decided in l ab titration would be best. She lives in [place] and may get it at a [facility] sleep [facility]. Order placed and follow up 2-3 weeks after completing s jolene for results. - PAP titration to evaluate for obstructive sleep apnea and hypoxia. - Discussed with t phil patient the possible diagnosis, causes, and conditions associa essence with obstructive sleep apnea. - Avoid driving wh en drowsy. Recommend that if you are dozing off while driving, that you do not drive until your sleepiness is appropriately treated. -Encouraged health y lifestyle with adequate sleep ( 7-9 hours per night), diet and exercise. - Results are usua lly available within 7-10 business days. If you do not hear from us withi n 1-2 weeks after testing, please contact us directly. - Get ferritin and iron blood draws in the morning before eating. - Avoid caffeine a nd alcohol for RLS and start exercise routine to improve symptoms. - Follow up visit in 2-3 weeks after completing pap titration for results. Alexandra Greene ch, SPECIAL NEEDS NANNY.COMBUSTION ENGINEER I spent 45 minutes in the visit, with more than 50% of the total mpyx-fz-decm time of the visit in counseling / coordination of care. MARYCARMEN Observed: 09/02/2020 Status: COMPLETED Source: [facility] 12:00 AM [facility] REPOSITORY Telephone (PODIWS) JOSEPH OSMAN ([id number]) 1975 F NFR Date Time Provider Department 09/02/20 JAYJAY THIBODEAUX During your vi sit today, we recorded the following information about you: Tram Duarte Ma 09/02/2020 2:32 PM Signed Patient called in asking about surgery that is to be scheduled. Asking if we have a surgery urszula e yet. Jayjay Thibodeaux DPM 09/02/2020 2:51 PM Signed I called patient. I am going to try and get patient seen by Dr. Nguyen to arrange. Patient agreeable to travel. Jayjay Thibodeaux DPM Allergies As of Da te: 09/02/2020 (No Known Allergie s) Date Reviewed: Reviewed by: Noam Lopez LPN - Fully Assessed Reason for Visit: Schedule Surgery [1330] Prescriptions as o f 09/02/2020 Sig: X CYCLOBENZAPRIN E 10 MG TABLET Take 1 tablet by mouth three * X NAPROXEN 500 M G TABLET Take 1 tablet by mouth twice * ONDANSETRON 4 MG DISINTEGRATI* Take 1 tablet by mouth every * METFORMIN 500 MG TABLET Take 1 tablet by mouth twice * BUPROPION XL 1 50 MG TAB Take 1 tablet by mouth once d* PAROXETINE 40 MG TABLET Take 1 tablet by mouth once d* HYDROXYZINE HC L 25 MG TABLET Take 1 tablet by mouth every * TRAZODONE 50 M G TABLET Take 1 tablet by mouth daily * LISINOPRIL 40 MG TABLET Take 1 tablet by mouth once d* AMLODIPINE 10 MG TABLET Take 1 tablet by mouth once d* METOPROLOL SUC CINATE ER 50 MG* Take 1 tablet by mouth once d* Problem List As Of Date 09/02/2020 Noted Resolved Depression [F32. 9] 08/15/2013 More... Insomnia [G47.00 ] 08/15/2013 09/16/2018 More... Tobacco use [Z72 .0] 09/26/2013 More... Vitamin D defici ency [E55.9] 01/30/2014 More... Fatigue [R53.83] 06/25/2014 11/27/2016 More... Sinusitis [J32.9 ] 06/25/2014 11/27/2016 More... MOUNIKA (obstructive sleep apnea) mild [G47.33] 10/09/2014 09/16/2018 More... Hypertension [I1 0] 10/09/2014 More... Hospital dischar ge follow-up [Z09] 10/09/2014 11/27/2016 More... Type 2 diabetes mellitus without complication (*02/19/2016 More... with t ype 2 diabetes mellitus in firs*06/24/2016 11/27/2016 Irritable bowel syndrome with diarrhea [K58.0] 06/24/2016 09/16/2018 Pain in right el bow [M25.521] 10/27/2018 02/14/2019 Rash and nonspec ific skin eruption [R21] 07/17/2019 06/07/2020 Posterior tibial is tendinitis of both lower ext*08/31/2019 Accessory navicu lar bone of both feet [Q74.2] 08/31/2019 Posterior tibial tendonitis [M76.829] 02/13/2020 Encounter Status:C losed by KRISHAN MCKEON RUBI on 11/14/20 XR RIB/CHST 3V AP Observed: 08/27/2020 Status: F Source: [place] RIB/OBL/CHST R 4:11 PM [facility] REPOSITORY * * *Final Report* * * DATE OF EXAM: Aug 27 2020 4:11PM WOX [id number] - XR RIB/CHST 3V AP RIB/OBL/CHST R / PROCEDURE REASON: Anterior pleuritic pain * * * * Physician Interpretation * * * * Study:Chest and RIGHT ribs: HISTORY: Indication: Anter ior pleuritic pain Pt states Rt upper posterior Rib pain for [address] coughing really hard. TECHNIQUE: Images obtained: X R RIB/CHST 3V AP RIB/OBL/CHST R Comparison: NONE Result: Findings: Chest x-ray: PA view of the neno st shows no acute pathology in the heart and lungs.. RIBS: No rib fractures a re seen. IMPRESSION: Negative exam Sucker Machine Operator: PAM Transcribe Date/Ti me: Aug 27 2020 4:14P Dictated by : JOHN MEJÍA DO This examination w as interpreted and the report reviewed and electronically sig krystian by: DECLAN MEJÍA DO on Aug 27 2020 4:15PM EST [id number] IACN PROGRESS Observed: 08/27/2020 Status: COMPLETED Source: [place] 4:03 PM [facility] REPOSITORY HNO ID: [id number] Author: Dino Tavarez (Rt) Mojgan Falcon Service: ? Author Type: Techn ician Type: Progress Not es Filed: 08/27/2020 4:12 PM Note Text: Radiology Servi ce Progress Note PATIENT NAME: Joseph Osman DATE OF SERVICE: August 27, 2020 TIME: 4:03 PM PATIENT IDENTITY V ERIFICATION COMPLETED USING TWO (2) IDENTIFIERS: Name and Date of confirmed by patient verbally. FALL SCREENING: Camargo s the patient had 2 falls in the last year or 1 fall with injury or cur rently using an Ambulatory Assistive Device (Walker, Cane, Wheelchair, Crutches, etc.)? No PATIENT GENDER URSZULA A: Female. status: : No stat us: NO. PATIENT RELEVANT I MPLANT DATA REVIEWED: Not Applicable RADIOLOGY DEPARTME NT: General X-ray: Exam(s) Completed: Rib X-Ray: Right PERIPHERAL IV DATA : Not applicable SIGNED BY: RT Gela August 27, 2020 4:03 PM PROGRESS Observed: 08/27/2020 Status: COMPLETED Source: C [facility] 3:51 PM [facility] REPOSITORY HNO ID: [id number] Author: Samantha Connell (C np) Service: ? Author Type: Nurse Practitioner Type: Progress Not es Filed: 08/27/2020 4:47 PM Note Text: Subjective 45 year old female with PMH HTN, DM, depression presents with right upper back pain. Endorses that she had a coughing fit on Wednesday morning and states after that she developed pain in her right upper back. feel like I popped a rib Endorses that the pain goes from right upper back into neck and anterior chest. +p ain with deep inspiration. +pain with movement. Denies SOB or dyspnea. De nies hemoptysis. Denies CP. Denies abdominal pain. Denies N/V/D. Homero es fever or chills. Denies skin rash or lesions. Has been utilizing Tyl enol and Ibuprofen with minimal relief. The history is pro vided by the patient. No speech language pathologist prn was used. Back Pain This is a new prob navid. The current episode started more than 2 days ago. The problem occurs constantly. The problem has not changed since onset.Associated w ith: after coughing fit The pain is present in the thoracic spine. Th e quality of the pain is described as cramping and aching. Radiates t o: up to neck and right anterior chest. The pain is at a severity of 6/10. The pain is moderate. The symptoms are aggravated by bending, twisting and certain positions. The pain is the same all the time. Stiffness is present all day. Pertinent negatives include no chest pain, no fever, no numbness, no weight loss, no headaches, no abdominal pain, no abdominal swelling, no bowel incontinence, no perianal numbness, no bladder inconti nence, no dysuria, no pelvic pain, no leg pain, no paresthesias, no p aresis, no tingling and no weakness. She has tried NSAIDs and heat fo r the symptoms. The treatment provided mild relief. PAST MEDICAL HISTO RY Diagnosis Date - Asthma - Depression - Hypertension 09/2014 - Hypertriglycerid emia - Insomnia - Irritable bowel syndrome with diarrhea 06/24/2016 - MOUNIKA (obstructive sleep apnea) mild 10/09/2014 - Pancreatitis 201 1 Recurrent. - Pseudocyst of pa ncreas 2010 aspirated - Tobacco use 08/30 - Type 2 diabetes mellitus without complication (HCC) 02/19/2016 - Vitamin D defici ency PAST SURGICAL HIST ORY Procedure Laterali ty Date - CHOLECYSTECTOMY 02/2011 laparoscopic - COLONOSCOP W/ OR W/O BRS SPEC 07/18/2014 Colonoscopy - COLONOSCOP W/ OR W/O BRS SPEC 09/11/15 Colonoscopy - EGD EUS GEN ANES 07/21/2012 FNA pseudocyst - EGD W/O OR W/BRU SH/WASH 07/18/2014 EGD - PAST SURGICAL HI STORY OF 2004 dental extraction - PAST SURGICAL HI STORY OF 2011 drainage of pancr eatic cyst ALLERGIES Patient has no known allergies. MEDICATIONS ondansetron orally disintegrating (ZOFRAN ODT) 4 mg disintegrating tablet Take 1 tablet by m outh every 6 hours as needed for Nausea/Vomiting. metFORMIN (GLUCOPH AGE) 500 mg tablet Take 1 tablet by mouth twice daily. buPROPion XL (WELL BUTRIN XL) 150 mg 24 hr tablet Take 1 tablet by mouth once daily. PARoxetine (PAXIL) 40 mg tablet Take 1 tablet by mouth once daily. hydrOXYzine HCl (A TARAX) 25 mg tablet Take 1 tablet by mouth every 6 hours as needed for Itch ing/Rash or Anxiety. traZODone (DESYREL ) 50 mg tablet Take 1 tablet by mouth daily at bedtime. lisinopril (ZESTRI L, PRINIVIL) 40 mg tablet Take 1 tablet by mouth once daily. amLODIPine (NORVAS C) 10 mg tablet Take 1 tablet by mouth once daily. metoprolol succina te ER (TOPROL XL) 50 mg 24 hr tablet Take 1 tablet by mouth once daily. FAMILY HISTORY Problem Relation A ge of Onset - Osteoporosis Mot her - Cancer Mother uterine or ce rvix - Hypertension Fat her - Diabetes Paterna l Grandmother - Stroke Paternal Grandfather - Hypertension Pat ernal Grandfather - No Known Problem s Brother Social History Tobacco Use - Smoking status: Former Smoker Packs/day: 0.50 Years: 21.00 Pack years: 10.5 0 Types: Cigarette s Start date: 1996 Quit date: 2019 Years since quit tin.1 - Smokeless tobacc o: Never Used - Tobacco comment: stopped 3 weeks ago Substance Use Topi cs - Alcohol use: Yes Alcohol/week: 1. 3 standard drinks Types: 1 Mixed D rinks per week Frequency: 2-4 t imes a month Drinks per sessi on: 1 or 2 Binge frequency: Less than monthly Comment: in donnie very since 2017 - Drug use: No Comment: No drug s Review of Systems Constitutional: Ne gative for chills, fever, malaise/fatigue and weight loss. Eyes: Negative for pain, discharge and redness. Respiratory: Negat loren for cough, hemoptysis, sputum production and shortness of breat h. Cardiovascular: Ne gative for chest pain, palpitations and orthopnea. Right chest w all pain Gastrointestinal: Negative for abdominal pain, bowel incontinence, diarrhea, nausea a nd vomiting. Genitourinary: Neg ative for bladder incontinence, dysuria and pelvic pain. Musculoskeletal: P ositive for back pain. Skin: Negative for itching and rash. Neurological: Nega tive for tingling, weakness, numbness, headaches and paresthesias. Endo/Heme/Allergie s: Negative for environmental allergies and polydipsia. Does not bruise/bl eed easily. BP 142/82 Pulse 85 Temp 36.2 ?C (97.1 ?F) (Tympanic) Resp 18 Wt 77.9 kg (171 lb 12.8 oz) LMP 04/26/2019 SpO2 98% BMI 30.43 kg/m? Objective Physical Exam Constitutional: Sh e is oriented to person, place, and time and well-developed, we ll-nourished, and in no distress. HENT: Head: Normocephali c and atraumatic. Right Ear: Externa l ear normal. Left Ear: External ear normal. Mouth/Throat: Orop harynx is clear and moist. Eyes: Pupils are e qual, round, and reactive to light. Conjunctivae and EOM are normal. Right eye exhibits no discharge. Left eye exhibits no discharge. No scle ral icterus. Neck: Normal range of motion. Neck supple. No tracheal deviation present. No thyromegaly pre sent. Cardiovascular: No rmal rate, regular rhythm and normal heart sounds. Exam reveals no gallop and no friction rub. No murmur heard. Pulmonary/Chest: E ffort normal and breath sounds normal. No respiratory distress. She has no wheezes. She has no rales. She exhibits no tenderness. Abdominal: Soft. B owel sounds are normal. She exhibits no distension. There is no abdomi nal tenderness. Musculoskeletal: N ormal range of motion. General: No ten derness, deformity or edema. Comments: No mi dline cervical, thoracic, or lumbar pain. Right thoracic paraspinal tendern ess and tenderness noted at trapezius muscle. Right anterior chest wal l pain with palpation. Lymphadenopathy: She has no cervi angelita adenopathy. Neurological: She is alert and oriented to person, place, and time. GCS score is 15. Skin: Skin is warm and dry. No rash noted. No erythema. No pallor. Psychiatric: Mood, affect and judgment normal. Nursing note and v itals reviewed. ASSESSMENT/PLAN: 1. Anterior pleuri tic pain - ICD9: 786.52, ICD10: R07.81 (primary diagnosis) Atypical chest jennifer n, symptoms are not consistent with cardiac ischemia due to pleuritic natur e of pain and localization of the pain possible etiology include musculoske letal, Pleurisy and Bronchitis - Treatment with Toradol 60 mg IM - Chest X-ray toheidi parmar. My reading: normal, no signs of acute disease. Discussed my readi donis with patient. Radiologist report to follow. - Follow up 3 day s - KETOROLAC 60 MG /2 ML INTRAMUSCULAR SOLUTION - XR RIBS/CHEST 3 V AP RIB/OBLS/CXR RT 2. Upper back pain on right side - ICD9: 724.5, ICD10: M54.9 Reproducible, uppe r right thoracic. - Warm moist heat for 20 min three times a day - NSAIDS- see or ders - Muscle relaxant - see orders - Xrays- see orde rs - Patient given i nstructions use of medications as ordered, back care exercise program, improved posture, intermittent use of heat and avoiding sleeping on a heat ing pad - Follow up in 2 days or sooner if symptoms persist or worsen Samantha Connell, APR N.COMBUSTION ENGINEER CNOV Observed: 08/27/2020 Status: COMPLETED Source: [facility] 3:45 PM CLINIC MAIN [facility] REPOSITORY Office Visit (UCWSTR) JOSEPH OSMAN ([id number]) 1975 F NFR Date Time Provider Department 08/27/20 3:45 PM SAMANTHA CONNELL (ERIC) [facility] During your vi sit today, we recorded the following information about you: Temperature Pulse Respiration Blood pressure 97.1 degrees 85/minute 18/minute 142/82 Weight 77.9 kg Samantha Connell APR N.CNP 08/27/2020 4:47 PM Signed Subjective 45 year old female with PMH HTN, DM, depression presents with right upper back pain. Endorses that she had a coughing fit on Wednesday morning and states after that she developed pain in her right upper back. feel like I popped a rib Endorses that the pain goes from right upper back into neck and anterior chest. +pain with deep inspirat ion. +pain with movement. Denies SOB or dyspnea. Denies hemoptysis. Denies CP. Denies abdominal pain. Denies N/V/D. Denies fever or chills. Denies ski n rash or lesions. Has been utilizing Tylenol and Ibuprofen with minimal relie f. The history is pro vided by the patient. No speech language pathologist prn was used. Back Pain This is a new prob navid. The current episode started more than 2 days ago. The problem occurs con stantly. The problem has not changed since onset.Associated with: after cough ing fit The pain is present in the thoracic spine. The quality of the jennifer n is described as cramping and aching. Radiates to: up to neck and right ant erior chest. The pain is at a severity of 6/10. The pain is moderate. The symp toms are aggravated by bending, twisting and certain positions. The jennifer n is the same all the time. Stiffness is present all day. Pertinent negative s include no chest pain, no fever, no numbness, no weight loss, no headaches , no abdominal pain, no abdominal swelling, no bowel incontinence, no p erianal numbness, no bladder incontinence, no dysuria, no pelvic pain, no le g pain, no paresthesias, no paresis, no tingling and no weakness. She has tried NSAIDs and heat for the symptoms. The treatment provided mild reli ef. PAST MEDICAL HISTO RY Diagnosis Date - Asthma - Depression - Hypertension 09/2014 - Hypertriglycerid emia - Insomnia - Irritable bowel syndrome with diarrhea 06/24/2016 - MOUNIKA (obstructive sleep apnea) mild 10/09/2014 - Pancreatitis 201 1 Recurrent. - Pseudocyst of pa ncreas 2010 aspirated - Tobacco use 08/30 - Type 2 diabetes mellitus without complication (HCC) 02/19/2016 - Vitamin D defici ency PAST SURGICAL HIST ORY Procedure Laterali ty Date - CHOLECYSTECTOMY 02/2011 laparoscopic - COLONOSCOP W/ OR W/O RUST SPEC 07/18/2014 Colonoscopy - COLONOSCOP W/ OR W/O RUST SPEC 09/11/15 Colonoscopy - EGD EUS GEN ANES 07/21/2012 FNA pseudocyst - EGD W/O OR W/BRU SH/WASH 07/18/2014 EGD - PAST SURGICAL HI STORY OF 2004 dental extraction - PAST SURGICAL HI STORY OF 2011 drainage of pancr eatic cyst ALLERGIES Patient has no known allergies. MEDICATIONS ondansetron orally disintegrating (ZOFRAN ODT) 4 mg disintegrating tablet Take 1 tablet by mouth every 6 hours as needed for Nausea/Vomiting. metFORMIN (GLUCOPH AGE) 500 mg tablet Take 1 tablet by mouth twice daily. buPROPion XL (WELL BUTRIN XL) 150 mg 24 hr tablet Take 1 tablet by mouth once daily. PARoxetine (PAXIL) 40 mg tablet Take 1 tablet by mouth once daily. hydrOXYzine HCl (A TARAX) 25 mg tablet Take 1 tablet by mouth every 6 hours as needed for Itching /Rash or Anxiety. traZODone (DESYREL ) 50 mg tablet Take 1 tablet by mouth daily at bedtime. lisinopril (ZESTRI L, PRINIVIL) 40 mg tablet Take 1 tablet by mouth once daily. amLODIPine (NORVAS C) 10 mg tablet Take 1 tablet by mouth once daily. metoprolol succina te ER (TOPROL XL) 50 mg 24 hr tablet Take 1 tablet by mouth once daily. FAMILY HISTORY Problem Relation A ge of Onset - Osteoporosis Mot her - Cancer Mother uterine or ce rvix - Hypertension Fat her - Diabetes Paterna l Grandmother - Stroke Paternal Grandfather - Hypertension Pat roman Grandfather - No Known Problem s Brother Social History Tobacco Use - Smoking status: Former Smoker Packs/day: 0.50 Years: 21.00 Pack years: 10.5 0 Types: Cigarette s Start date: 1996 Quit date: 2019 Years since quit tin.1 - Smokeless tobacc o: Never Used - Tobacco comment: stopped 3 weeks ago Substance Use Topi cs - Alcohol use: Yes Alcohol/week: 1. 3 standard drinks Types: 1 Mixed D rinks per week Frequency: 2-4 t imes a month Drinks per sessi on: 1 or 2 Binge frequency: Less than monthly Comment: in donnie very since 2016 - Drug use: No Comment: No drug s Review of Systems Constitutional: Ne gative for chills, fever, malaise/fatigue and weight loss. Eyes: Negative for pain, discharge and redness. Respiratory: Negat loren for cough, hemoptysis, sputum production and shortness of breath. Cardiovascular: Ne gative for chest pain, palpitations and orthopnea. Right chest w all pain Gastrointestinal: Negative for abdominal pain, bowel incontinence, diarrhea, nausea and vomitin g. Genitourinary: Neg ative for bladder incontinence, dysuria and pelvic pain. Musculoskeletal: P ositive for back pain. Skin: Negative for itching and rash. Neurological: Nega tive for tingling, weakness, numbness, headaches and paresthesias. Endo/Heme/Allergie s: Negative for environmental allergies and polydipsia. Does not bruise/bleed e asily. BP 142/82 Pulse 85 Temp 36.2 ?C (97.1 ?F) (Tympanic) Resp 18 Wt 77.9 kg (171 lb 12 .8 oz) LMP 04/26/2019 SpO2 98% BMI 30.43 kg/m? Objective Physical Exam Constitutional: Sh e is oriented to person, place, and time and well-developed, well-nourished, an d in no distress. HENT: Head: Normocephali c and atraumatic. Right Ear: Externa l ear normal. Left Ear: External ear normal. Mouth/Throat: Orop harynx is clear and moist. Eyes: Pupils are e qual, round, and reactive to light. Conjunctivae and EOM are normal. Right eye exhibits no discharge. Left eye exhibits no discharge. No scleral icterus. Neck: Normal range of motion. Neck supple. No tracheal deviation present. No thyromegaly presen t. Cardiovascular: No rmal rate, regular rhythm and normal heart sounds. Exam reveals no gallop and no friction rub. No murmur heard. Pulmonary/Chest: E ffort normal and breath sounds normal. No respiratory distress. She has no wheezes. She has no rales. She exhibits no tenderness. Abdominal: Soft. B owel sounds are normal. She exhibits no distension. There is no abdominal tende rness. Musculoskeletal: N ormal range of motion. General: No ten derness, deformity or edema. Comments: No mi dline cervical, thoracic, or lumbar pain. Right thoracic paraspinal tendern ess and tenderness noted at trapezius muscle. Right anterior chest wall pain wi th palpation. Lymphadenopathy: She has no cervi angelita adenopathy. Neurological: She is alert and oriented to person, place, and time. GCS score is 15. Skin: Skin is warm and dry. No rash noted. No erythema. No pallor. Psychiatric: Mood, affect and judgment normal. Nursing note and v itals reviewed. ASSESSMENT/PLAN: 1. Anterior pleuri tic pain - ICD9: 786.52, ICD10: R07.81 (primary diagnosis) Atypical chest jennifer n, symptoms are not consistent with cardiac ischemia due to pleuritic nature o f pain and localization of the pain possible etiology include musculoskeletal, P leurisy and Bronchitis - Treatment with Toradol 60 mg IM - Chest X-ray toheidi parmar. My reading: normal, no signs of acute disease. Discussed my reading with ellie rizo. Radiologist report to follow. - Follow up 3 day s - KETOROLAC 60 MG /2 ML INTRAMUSCULAR SOLUTION - XR RIBS/CHEST 3 V AP RIB/OBLS/CXR RT 2. Upper back pain on right side - ICD9: 724.5, ICD10: M54.9 Reproducible, uppe r right thoracic. - Warm moist heat for 20 min three times a day - NSAIDS- see or ders - Muscle relaxant - see orders - Xrays- see orde rs - Patient given i nstructions use of medications as ordered, back care exercise program, improved posture, intermittent use of heat and avoiding sleeping on a heating pad - Follow up in 2 days or sooner if symptoms persist or worsen Samantha Connell APR NAMBERLY Connell APR N.CNP 08/27/2020 4:36 PM Signed MUSCLE STRAIN: Your exam shows yo u have a strained muscle. This means there is a tear or pull in the muscle due to over-exertion or stretching. Most muscle pulls heal in just a few days; m ore severe strains may require weeks to heal. Treatment for muscle strains inc ludes: -? Rest and prote ct the affected area until pain with motion is gone. -? Apply ice pack s every few hours for the next 2-3 days. After two days you can use heat to relieve muscle spasm. -? Compression wr aps help control swelling and limit movement. -? Medicine to re duce pain and inflammation is often useful. Avoid strenuous ac tivities that tend to bring on muscle pain. Exercises to strengthen and str etch the injured muscle, however, can help heal the strain and prevent repeat ed injury. Please call the of jordan if your strained muscle is not improving after one week of treatment, or i f you have any other concerns about your injury. Referring Provider : SELF [[id number]] Allergies As of Da te: 08/27/2020 (No Known Allergie s) Date Reviewed: Reviewed by: Noam Lopez LPN - Fully Assessed Reason for Visit: shoulder and nec k pain [Other] Cmt: x 2 days Primary Visit Diag nosis:Anterior pleuritic pain [R07.81] Other Visit Diag nosis:Upper back pain on right side [M54.9] Order(s):[] ketorolac 60 mg injection (TORADOL)Disp: Rfl: XR RIBS/C HEST 3V AP RIB/OBLS/CXR RT [[id number]] Order #: [id number] FUTURE cyclobenz aprine (FLEXERIL) 10 mg tabletTake 1 tablet by mouth three times colleen ly as needed for Muscle Spasm.Disp: 18 tabletRfl: 0 naproxen (NAPROSYN) 500 mg tabletTake 1 tablet by mouth twice daily as needed (pain/inflammation, take with food.).Disp: 24 tabletRfl: 0 Prescriptions as o f 08/27/2020 Sig: ONDANSETRON 4 MG DISINTEGRATI* Take 1 tablet by mouth every * METFORMIN 500 MG TABLET Take 1 tablet by mouth twice * BUPROPION XL 1 50 MG TAB Take 1 tablet by mouth once d* PAROXETINE 40 MG TABLET Take 1 tablet by mouth once d* HYDROXYZINE HC L 25 MG TABLET Take 1 tablet by mouth every * TRAZODONE 50 M G TABLET Take 1 tablet by mouth daily * LISINOPRIL 40 MG TABLET Take 1 tablet by mouth once d* AMLODIPINE 10 MG TABLET Take 1 tablet by mouth once d* METOPROLOL SUC CINATE ER 50 MG* Take 1 tablet by mouth once d* CYCLOBENZAPRIN E 10 MG TABLET Take 1 tablet by mouth three * NAPROXEN 500 M G TABLET Take 1 tablet by mouth twice * Problem List As Of Date 08/27/2020 Noted Resolved Depression [F32. 9] 08/15/2013 More... Insomnia [G47.00 ] 08/15/2013 09/16/2018 More... Tobacco use [Z72 .0] 09/26/2013 More... Vitamin D defici ency [E55.9] 01/30/2014 More... Fatigue [R53.83] 06/25/2014 11/27/2016 More... Sinusitis [J32.9 ] 06/25/2014 11/27/2016 More... MOUNIKA (obstructive sleep apnea) mild [G47.33] 10/09/2014 09/16/2018 More... Hypertension [I1 0] 10/09/2014 More... Hospital dischar ge follow-up [Z09] 10/09/2014 11/27/2016 More... Type 2 diabetes mellitus without complication (*02/19/2016 More... with t ype 2 diabetes mellitus in firs*06/24/2016 11/27/2016 Irritable bowel syndrome with diarrhea [K58.0] 06/24/2016 09/16/2018 Pain in right el bow [M25.521] 10/27/2018 02/14/2019 Rash and nonspec ific skin eruption [R21] 07/17/2019 06/07/2020 Posterior tibial is tendinitis of both lower ext*08/31/2019 Accessory navicu lar bone of both feet [Q74.2] 08/31/2019 Posterior tibial tendonitis [M76.829] 02/13/2020 Other instruct ions from your clinician: MUSCLE STRAIN: Your exam show s you have a strained muscle. This means there is a tear or pull in the mu scle due to over-exertion or stretching. Most muscle pulls heal in just a few days; more severe strains may require weeks to heal. Treatment for muscle strains includes: -? Rest and p rotect the affected area until pain with motion is gone. -? Apply ice packs every few hours for the next 2-3 days. After two days you can use heat to relieve muscle spasm. -? Compressio n wraps help control swelling and limit movement. -? Medicine t o reduce pain and inflammation is often useful. Avoid strenuou s activities that tend to bring on muscle pain. Exercises to strengthen and stretch the injured muscle, however, can help heal the strain and pre vent repeated injury. Please call e office if your strained muscle is not improving after one week of treatm ent, or if you have any other concerns about your injury. Prescriptions orde red this encounter Disp Refills Start End KETOROLAC 60 MG/ 2 ML INTRAMUSCULAR S* 08/27/2020 08/27/2020 Route: INTRAMUSC GALO CYCLOBENZAPRINE 10 MG TABLET 18 t* 0 08/27/2020 Route: ORAL Sig: Take 1 tabl et by mouth three times daily as needed for Muscle Spasm. NAPROXEN 500 MG TABLET 24 t* 0 08/27/2020 Route: ORAL Sig: Take 1 tabl et by mouth twice daily as needed (pain/inflammation, take with food.) . Encounter Status:C losed by SAMANTHA CONNELL CNP on 08/27/20 XR FOOT 3V AP/LAT/OBL Observed: 08/01/2020 Status: Linnea Santiago e: CLEMENCIA DUKE 1:56 PM CLINIC MAIN [facility] REPOSITORY * * *Final Report* * * DATE OF EXAM: Aug 01 2020 1:56PM WRX [id number] - XR FOOT 3V AP/LAT/OBL LEILANI / PROCEDURE REASON: multiple diagnoses * * * * Physician Interpretation * * * * EXAMINATION: XR FOOT 3V AP/LAT/OBL LEILANI PATIENT/TECHNOLOGI ST PROVIDED HISTORY: accessory navicular bone bilateral feet CLINICAL INFORMATI ON: 45 years old Female with Accessory navicular bone of both feet. Pos terior tibial tendinitis of left lower extremity TECHNIQUE: XR FOOT 3V AP/LAT/OBL LEILANI Laterality: BI LATERAL Number of diffe rent views (projections): 3-each COMPARISON: Radiog raphs 08/16/2019 RESULT: No fracture. Join t spaces are maintained. Bony mineralization is normal. Bilateral os navicularis and bilateral os peroneum. Tiny bilateral heel spu rs. IMPRESSION: No acute osseous a bnormality. Sucker Machine Operator: PAM Transcribe Date/Ti me: Aug 01 2020 3:38P Dictated by : KODY JAMISON DO This examination w as interpreted and the report reviewed and electronically sig krystian by: RIAZ JAMISON DO on Aug 01 2020 3:43PM EST [id number] IACN PROGRESS Observed: 08/01/2020 Status: COMPLETED Source: [place] 1:55 PM [facility] REPOSITORY O ID: [id number] Author: Mojgan Zapata (R t) Service: ? Author Type: Techn ician Type: Progress Not es Filed: 08/01/2020 1 :55 PM Note Text: Radiology Servi ce Progress Note PATIENT NAME: Joseph Osman DATE OF SERVICE: August 01, 2020 TIME: 1:55 PM PATIENT IDENTITY V ERIFICATION COMPLETED USING TWO (2) IDENTIFIERS: Name and Date of confirmed by patient verbally. FALL SCREENING: Camargo s the patient had 2 falls in the last year or 1 fall with injury or cur rently using an Ambulatory Assistive Device (Walker, Cane, Wheelchair, Crutches, etc.)? No PATIENT GENDER URSZULA A: Female. status: : No stat us: NO. PATIENT RELEVANT I MPLANT DATA REVIEWED: Not Applicable RADIOLOGY DEPARTME NT: General X-ray: Exam(s) Completed: Lower Extremity X-Ray(s): Feet, Bi lateral and Wt. Bearing: PERIPHERAL IV DATA : Not applicable SIGNED BY: RT Kimmy August 01, 2020 1:55 PM NICOTINE/METAB, UR Collected: 08/01/2020 Status: F Source: [facility] 1:38 PM CLINIC MAIN [facility] REPOSITORY TYPE CODE TESTS RESULT OUT OF RANGE REFERENCE UNITS LAB U3OHCO ng/mL 3 OH 678 COTININE,UR, QNT Result Comment: (NOTE) Nicotine is metabo lized to cotinine, and subsequently to 3-OH cotinine. Af ter cessation from chronic and heavy use of nicotine contai mary products, 0-SI-njaoqvuq may persist for weeks. Passive exposure and active use of nicotine cannot be discrimi nated definitely. LAB UANBQT ng/mL Ur Anabasine Quant <3 LAB UCOQT ng/mL Ur Cotinine Quant 134 Result Comment: (NOTE) Cotinine is the ma kriss metabolite of nicotine and its presence can be de tected up to 2 weeks post exposure to nicotine containin g product. Passive exposure and active use of nicotine ca nnot be discriminated definitely. A cutoff of 100 ng/m L cotinine is frequently used for surgery qualification purp oses. LAB UNORQT ng/mL Ur Nornicotine Quant <2 LAB UNIQT ng/mL Ur Nicotine Quant <2 Result Comment: (NOTE) INTERPRETIVE INFOR MATION: Nicotine and Metabolites, Urine, Quantitative Methodology: Quant itative Liquid Chromatography-Tandem Mass Spectrometry Positive cutoff: Nicotine 2 ng/mL Cotinine 5 ng/mL 3-XQ-Hanbdpck 50 n g/mL Nornicotine 2 ng/mL Anabasine 3 ng/mL For medical purpos es only; not valid for forensic use. This test is desig krystian to evaluate recent use of nicotine-containin g products. Passive and active exposure cannot be discriminated d efinitively, although a cutoff of 100 ng/mL cotinine is freque ntly used for surgery qualification purposes. For smoking cessat ion programs or compliance testing, the absence of expected drug(s ) and/or drug metabolite(s) may indicate non-compliance, in appropriate timing of specimen collection relative to drug a dministration, poor drug absorption, diluted/adulterate d urine, or limitations of testing. The concentration valu e must be greater than or equal to the cutoff to be reported as pos itive. Anabasine is included as a biomarker of tobacco use, versu s nicotine replacement. Interpretive questions should be directed to the laboratory. Test developed and characteristics determined by [facility]. See Compliance Statement B: [employer]/Retention Education Performed By: [facility] [address] [place] [address] Laboratory Directo r: Amy White MD Performed By: #### UNICOT #### [facility] [address] [place] [address] [phone] PROGRESS Observed: 08/01/2020 Status: COMPLETED Source: [place] 1:13 PM CLINIC MAIN [facility] REPOSITORY HNO ID: [id number] Author: Jayjay Gibson Service: ? Author Type: Physi ronny Type: Progress Not es Filed: 08/06/2020 12 :54 PM Note Text: Follow up podiatri c office visit for: Chief Complaint: T his 45 year old who presents for follow up:left ankle pain. Patient presents t o clinic for follow-up left ankle pain. Patient continues to have pain along the navicular tuberosity of left lower extremity. Familia pena has been using the powerstep inserts except for today. She states the in serts do not help her. She continues to have pain and she states the jennifer n is 4/10. She is here to discuss surgery to remove accessory navicula r. She states she stopped smoking 3 weeks ago. In fact, she had bron chitis and was tested for covid. She was negative for covid 19. She has not been in contact with anyone with covid. PAIN EVALUATION 08/01/2020 1308 Pain Level: 4 Pain Location: F oot-Left Description: Ach ing Duration Amount o f Time: 1 Duration Units: Years Frequency: Inter mittent Intervention: Re laxation;Reposition Hemoglobin A1C Date Value Ref Ran ge Status 05/20/2020 6.8 (H) 4.3 - 5.6 % Final Comment: Citizen Of [place] Diabete s Association guidelines indicate that patients with HgbA1c in the range 5.7-6.4 % are at increased risk for development of diabetes, and intervention by li festyle modification may be beneficial. HgbA1c greater or equal to 6.5% is c onsidered diagnostic of diabetes. PCP: Abbe sevilla MD PAST MEDICAL HISTO RY Diagnosis Date - Asthma - Depression - Hypertension 09/2014 - Hypertriglycerid emia - Insomnia - Irritable bowel syndrome with diarrhea 06/24/2016 - MOUNIKA (obstructive sleep apnea) mild 10/09/2014 - Pancreatitis 201 1 Recurrent. - Pseudocyst of pa ncreas 2010 aspirated - Tobacco use 08/30 - Type 2 diabetes mellitus without complication (HCC) 02/19/2016 - Vitamin D defici ency Current Outpatient Medications Medication Sig - ondansetron oral ly disintegrating (ZOFRAN ODT) 4 mg disintegrating tablet Take 1 tabl et by mouth every 6 hours as needed for Nausea/Vomiting. - metFORMIN (GLUCO PHAGE) 500 mg tablet Take 1 tablet by mouth twice daily. - buPROPion XL (WE LLBUTRIN XL) 150 mg 24 hr tablet Take 1 tablet by mouth once daily. - PARoxetine (PAXI L) 40 mg tablet Take 1 tablet by mouth once daily. - hydrOXYzine HCl (ATARAX) 25 mg tablet Take 1 tablet by mouth every 6 hours as needed fo r Itching/Rash or Anxiety. - traZODone (DESYR EL) 50 mg tablet Take 1 tablet by mouth daily at bedtime. - lisinopril (ZEST RIL, PRINIVIL) 40 mg tablet Take 1 tablet by mouth once daily. - amLODIPine (NORV ASC) 10 mg tablet Take 1 tablet by mouth once daily. - metoprolol succi jason ER (TOPROL XL) 50 mg 24 hr tablet Take 1 tablet by mouth once daily. No current facilit y-administered medications for this visit. ALLERGIES No Known Allergies PAST SURGICAL HIST ORY Procedure Laterali ty Date - CHOLECYSTECTOMY 02/2011 laparoscopic - COLONOSCOP W/ OR W/O RUST SPEC 07/18/2014 Colonoscopy - COLONOSCOP W/ OR W/O RUST SPEC 09/11/15 Colonoscopy - EGD EUS GEN ANES 07/21/2012 FNA pseudocyst - EGD W/O OR W/BRU SH/WASH 07/18/2014 EGD - PAST SURGICAL HI STORY OF 2004 dental extraction - PAST SURGICAL HI STORY OF 2011 drainage of pancr eatic cyst Physical Exam: Constitutional: Pt is a well developed 45 year old female who is alert, oriented, cooperat loren and in no apparent distress. OBJECTIVE: NVSI unchanged fro m previous visit. Dermatological: Nails 1-5 b/l are normal. Webspaces clean and dry 1-4 b/l. Skin appears well hydrated and supple. good color, texture, turgor. No open lesions present. No callos ities present. Musculoskeletal/Or thopaedic: Patient has pain t o palpation of left medial ankle along navicular tuberosity. There is palpable accessory navicular b/l rom of b/l ankle i s full without evidence of equinus ASSESSMENT: (Q74.2) Accessory navicular bone of both feet (primary encounter diagnosis) (M76.822) Posterio r tibial tendinitis of left lower extremity PLAN: 1. History and phy sical examination completed today. 2. Discussed painf ul accessory navicular of b/l foot L>R. She has tried inserts and physic al therpay and boon immobilization. She continues to have pain and is i nterested in surgery. Discussed surgery in great detail. Discussed removal of accessory navicular and advancement of posterior tibial t endon. Discussed rationale for surgery and post-op recovery. She ace l require nwb until it is determined the tendon has healed enough to a llow for weightbearing. 3. Discussed pote ntial need for posterior tibial tendon augmentation pending intra-op f indings. 4. Evaluated for equinus. It is unlikely she will require tendon achilles lengtheni ng. 5. Discussed risk s of surgery not limited to infection, pain, swelling, rupture of tendon, wound dehiscence, slow healing, cardiac arrest, dvt, . 6. Discussed dvt prophylaxis for dvt. She declined. 7. Will repeat xr ays as there have been no xrays in almost one year. 8. Will check genny otine levels. 9. Will consent f or kidner but patient informed I will discuss with colleague to proce ed with assistance Jayjay Thibodeaux DPM PROGRESS Observed: 08/01/2020 Status: COMPLETED Source: Selene POTTER 1:07 PM [facility] RE[facility] HNO ID: [id number] Author: Ct gordon RN Service: ? Author Type: ? Type: Progress Not es Filed: 08/06/2020 12 :54 PM Note Text: Patient presents w ith: Left Foot - Follow Up, Pain Patient is here to discuss surgery and sign consent. Reports that she s topped smoking 3 weeks ago. CNOV Observed: 08/01/2020 Status: COMPLETED Source: Selene ANGELAND 1:00 PM [facility] REPOS[facility] Office Visit (PODIWS) JOSEPH OSMAN ([id number]) 1975 F NFR Date Time Provider Department 08/01/20 1:00 PM JAYJAY THIBODEAUX During your vi sit today, we recorded the following information about you: Ct Mueller RN 08/06/2020 12:54 PM Signed Patient presents w ith: Left Foot - Follow Up, Pain Patient is here to discuss surgery and sign consent. Reports that she s topped smoking 3 weeks ago. Jayjay Thibodeaux DPM 08/06/2020 12:54 PM Signed Follow up podiatri c office visit for: Chief Complaint: T his 45 year old who presents for follow up:left ankle pain. Patient presents t o clinic for follow-up left ankle pain. Patient continues to have pain along th e navicular tuberosity of left lower extremity. Patient has been using the pow erstep inserts except for today. She states the inserts do not help her. She continues to have pain and she states the pain is 4/10. She is here to discuss surgery to remove accessory navicular. She states she stopped smoking 3 weeks ago. In fact, she had bronchitis and was tested for covid. She was ne gative for covid 19. She has not been in contact with anyone with covid. PAIN EVALUATION 08/01/2020 1308 Pain Level: 4 Pain Location: F oot-Left Description: Ach ing Duration Amount o f Time: 1 Duration Units: Years Frequency: Inter mittent Intervention: Re laxation;Reposition Hemoglobin A1C Date Value Ref Ran ge Status 05/20/2020 6.8 (H) 4.3 - 5.6 % Final Comment: Citizen Of [place] Diabete s Association guidelines indicate that patients with HgbA1c in the range 5.7-6.4 % are at increased risk for development of diabetes, and intervention by li festyle modification may be beneficial. HgbA1c greater or equal to 6.5% is c onsidered diagnostic of diabetes. PCP: Abbe sevilla MD PAST MEDICAL HISTO RY Diagnosis Date - Asthma - Depression - Hypertension 09/2014 - Hypertriglycerid emia - Insomnia - Irritable bowel syndrome with diarrhea 06/24/2016 - MOUNIKA (obstructive sleep apnea) mild 10/09/2014 - Pancreatitis 201 1 Recurrent. - Pseudocyst of pa ncreas 2010 aspirated - Tobacco use 08/30 - Type 2 diabetes mellitus without complication (HCC) 02/19/2016 - Vitamin D defici ency Current Outpatient Medications Medication Sig - ondansetron oral ly disintegrating (ZOFRAN ODT) 4 mg disintegrating tablet Take 1 tablet by m outh every 6 hours as needed for Nausea/Vomiting. - metFORMIN (GLUCO PHAGE) 500 mg tablet Take 1 tablet by mouth twice daily. - buPROPion XL (WE LLBUTRIN XL) 150 mg 24 hr tablet Take 1 tablet by mouth once daily. - PARoxetine (PAXI L) 40 mg tablet Take 1 tablet by mouth once daily. - hydrOXYzine HCl (ATARAX) 25 mg tablet Take 1 tablet by mouth every 6 hours as needed for Itching /Rash or Anxiety. - traZODone (DESYR EL) 50 mg tablet Take 1 tablet by mouth daily at bedtime. - lisinopril (ZEST RIL, PRINIVIL) 40 mg tablet Take 1 tablet by mouth once daily. - amLODIPine (NORV ASC) 10 mg tablet Take 1 tablet by mouth once daily. - metoprolol succi jason ER (TOPROL XL) 50 mg 24 hr tablet Take 1 tablet by mouth once daily. No current facilit y-administered medications for this visit. ALLERGIES No Known Allergies PAST SURGICAL HIST ORY Procedure Laterali ty Date - CHOLECYSTECTOMY 02/2011 laparoscopic - COLONOSCOP W/ OR W/O RUST SPEC 07/18/2014 Colonoscopy - COLONOSCOP W/ OR W/O RUST SPEC 09/11/15 Colonoscopy - EGD EUS GEN ANES 07/21/2012 FNA pseudocyst - EGD W/O OR W/BRU SH/WASH 07/18/2014 EGD - PAST SURGICAL HI STORY OF 2004 dental extraction - PAST SURGICAL HI STORY OF 2011 drainage of pancr eatic cyst Physical Exam: Constitutional: Pt is a well developed 45 year old female who is alert, oriented, cooperat loren and in no apparent distress. OBJECTIVE: NVSI unchanged fro m previous visit. Dermatological: Nails 1-5 b/l are normal. Webspaces clean and dry 1-4 b/l. Skin appears well hydrated and suppl e. good color, texture, turgor. No open lesions present. No callosities presen t. Musculoskeletal/Or thopaedic: Patient has pain t o palpation of left medial ankle along navicular tuberosity. There is palpable accessory navicular b/l rom of b/l ankle i s full without evidence of equinus ASSESSMENT: (Q74.2) Accessory navicular bone of both feet (primary encounter diagnosis) (M76.822) Posterio r tibial tendinitis of left lower extremity PLAN: 1. History and phy sical examination completed today. 2. Discussed painf ul accessory navicular of b/l foot L>R. She has tried inserts and physic al therpay and boon immobilization. She continues to have pain and is intere sted in surgery. Discussed surgery in great detail. Discussed removal of accessory navicular and advancement of posterior tibial tendon. Discussed rationale for surgery and post-op recovery. She will require nwb until it is determined the tendon has healed enough to allow for weightbearing. 3. Discussed pote ntial need for posterior tibial tendon augmentation pending intra-op findings. 4. Evaluated for equinus. It is unlikely she will require tendon achilles lengthening. 5. Discussed risk s of surgery not limited to infection, pain, swelling, rupture of tendon, wound dehiscence, slow healing, cardiac arrest, dvt, . 6. Discussed dvt prophylaxis for dvt. She declined. 7. Will repeat xr ays as there have been no xrays in almost one year. 8. Will check genny otine levels. 9. Will consent f or kidner but patient informed I will discuss with colleague to proceed with as guillermina Thibodeaux DPM Referring Provider : JAYJAY THIBODEAUX [[id number]] Allergies As of Da te: 08/01/2020 (No Known Allergie s) Date Reviewed: 01/2020 Reviewed by: Venita Mueller RN - Fully Assessed Reason for Visit: Follow Up [171] Pain [78] Primary Visit Diag nosis: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] Other Visit Diag nosis:Posterior tibial tendinitis of left lower extremity [M76.822] Order(s):XR FOOT G ENERAL 3V AP/LAT/OBL BILAT [6060034] Order #: [id number] FUTURE NICOTINE AND METAB, UR [SQUNICOT] Order #: [id number] FUTURE Prescriptions as o f 08/01/2020 Sig: ONDANSETRON 4 MG DISINTEGRATI* Take 1 tablet by mouth every * METFORMIN 500 MG TABLET Take 1 tablet by mouth twice * BUPROPION XL 1 50 MG TAB Take 1 tablet by mouth once d* PAROXETINE 40 MG TABLET Take 1 tablet by mouth once d* HYDROXYZINE HC L 25 MG TABLET Take 1 tablet by mouth every * TRAZODONE 50 M G TABLET Take 1 tablet by mouth daily * LISINOPRIL 40 MG TABLET Take 1 tablet by mouth once d* AMLODIPINE 10 MG TABLET Take 1 tablet by mouth once d* METOPROLOL SUC CINATE ER 50 MG* Take 1 tablet by mouth once d* Problem List As Of Date 08/01/2020 Noted Resolved Depression [F32. 9] 08/15/2013 More... Insomnia [G47.00 ] 08/15/2013 09/16/2018 More... Tobacco use [Z72 .0] 09/26/2013 More... Vitamin D defici ency [E55.9] 01/30/2014 More... Fatigue [R53.83] 06/25/2014 11/27/2016 More... Sinusitis [J32.9 ] 06/25/2014 11/27/2016 More... MOUNIKA (obstructive sleep apnea) mild [G47.33] 10/09/2014 09/16/2018 More... Hypertension [I1 0] 10/09/2014 More... Hospital dischar ge follow-up [Z09] 10/09/2014 11/27/2016 More... Type 2 diabetes mellitus without complication (*02/19/2016 More... with t ype 2 diabetes mellitus in firs*06/24/2016 11/27/2016 Irritable bowel syndrome with diarrhea [K58.0] 06/24/2016 09/16/2018 Pain in right el bow [M25.521] 10/27/2018 02/14/2019 Rash and nonspec ific skin eruption [R21] 07/17/2019 06/07/2020 Posterior tibial is tendinitis of both lower ext*08/31/2019 Accessory navicu lar bone of both feet [Q74.2] 08/31/2019 Posterior tibial tendonitis [M76.829] 02/13/2020 Notes for Staf f Call patient w ith results Follow Up: Call patient with results Follow-up and Disp osition History Recorded Encounter Status:C losed by JAYJAY THIBODEAUX DPM on 08/06/20 CORONAVIRUS 2019 Collected: 07/19/2020 Status: F [facility] TYPE CODE TESTS RESULT OUT OF REFERENCE UNITS RANGE LAB COVNPS Nasopharyngeal COVID Swab 19 Source [facility] COVNP Negative for COVID19 (SARS Negative for CoV2) by PCR. COVID COVID19 (SARS CoV2) 19 Result by PCR. [facility] Result Comment: This test was developed and its performance characteristics determined by [facility] [place]. This test has been authorized by FDA under an Emergency Use Authorizat ion (EUA). This test has been validated in accordance with the FDA's Guidance Document Policy for Diagnostics Testing in Laboratories Certified to Perform High Complexity Testing under CLIA prior to Emergency use Authorization for Coronavirus Disease 2 019 during the Public Health Emergency issued on January 27, 2020. Performed By: #### COVID #### [facility] [address] [id number] [address] [facility] Observed: 07/16/2020 Status: COMPLETED Source: C [facility] 12:00 AM [facility] REPOS[facility] Telephone (INTMWS) JOSEPH OSMAN ([id number]) 1975 F NFR Date Time Provider Department 07/16/20 ABBE CLARK INTMWS During your vi sit today, we recorded the following information about you: Latrice sexton 07/16/2020 12:41 PM Signed Patient called in to schedule the a COVID test. She stated that Dr. Beard stated she would o rder it during their telehealth visit yesterday. [facility] . Please advise. Latrice Shrestha Ps s Jasson White APRN .[employer]BUST[employer] ENGINEER 07/16/2020 4:34 PM Signed Patient's chart wa s forwarded to the COVID pool for review and orders if indicated. I resen t her chart and should have a response soon. Patient will be contacted if order s are approved. Jasson White APRN .COMBUSTION ENGINEER Chloe Krissy BRUNO 07/16/2020 4:59 PM Signed Pt notified. Allergies As of Da te: 07/16/2020 (No Known Allergie s) Date Reviewed: 01/2020 Reviewed by: Genet Nickerson Ma - Fully Assessed Reason for Visit: COVID Testing [O ther] Prescriptions as o f 07/16/2020 Sig: ONDANSETRON 4 MG DISINTEGRATI* Take 1 tablet by mouth every * METFORMIN 500 MG TABLET Take 1 tablet by mouth twice * BUPROPION XL 1 50 MG TAB Take 1 tablet by mouth once d* PAROXETINE 40 MG TABLET Take 1 tablet by mouth once d* HYDROXYZINE HC L 25 MG TABLET Take 1 tablet by mouth every * TRAZODONE 50 M G TABLET Take 1 tablet by mouth daily * LISINOPRIL 40 MG TABLET Take 1 tablet by mouth once d* AMLODIPINE 10 MG TABLET Take 1 tablet by mouth once d* METOPROLOL SUC CINATE ER 50 MG* Take 1 tablet by mouth once d* Problem List As Of Date 07/16/2020 Noted Resolved Depression [F32. 9] 08/15/2013 More... Insomnia [G47.00 ] 08/15/2013 09/16/2018 More... Tobacco use [Z72 .0] 09/26/2013 More... Vitamin D defici ency [E55.9] 01/30/2014 More... Fatigue [R53.83] 06/25/2014 11/27/2016 More... Sinusitis [J32.9 ] 06/25/2014 11/27/2016 More... MOUNIKA (obstructive sleep apnea) mild [G47.33] 10/09/2014 09/16/2018 More... Hypertension [I1 0] 10/09/2014 More... Hospital dischar ge follow-up [Z09] 10/09/2014 11/27/2016 More... Type 2 diabetes mellitus without complication (*02/19/2016 More... with t ype 2 diabetes mellitus in firs*06/24/2016 11/27/2016 Irritable bowel syndrome with diarrhea [K58.0] 06/24/2016 09/16/2018 Pain in right el bow [M25.521] 10/27/2018 02/14/2019 Rash and nonspec ific skin eruption [R21] 07/17/2019 06/07/2020 Posterior tibial is tendinitis of both lower ext*08/31/2019 Accessory navicu lar bone of both feet [Q74.2] 08/31/2019 Posterior tibial tendonitis [M76.829] 02/13/2020 Encounter Status:C losed by CHLOE REYES LPN on 07/16/20 CNPN Observed: 07/16/2020 Status: COMPLETED Source: Selene POTTER 12:00 AM [facility] REPOS[facility] Telephone (COVHLD) JOSEPH OSMAN ([id number]) 1975 F NFR Date Time Provider Department 07/16/20 SMILEY MARINA) [place] During your vi sit today, we recorded the following information about you: Julissa Pittman 07/16/2020 8:19 PM Signed Patient meets pascual cagle for testing high risk HTN, eldon betes + 2 qualifying symptoms vomiting, headache, cough, sob with exertion, con gestion, diarrhea. test ordered COVID-19 (Novel Co ronavirus): ? You are being te sted for COVID-19. You will be notified within 2 days if your test comes ba ck positive. ? While awaiting t hese results, please refer to the following recommendations from the CDC josh acevedo isolation precautions: Steps to Follow: Isolation: You tirso uld follow the prevention steps below until a healthcare provider or local or state health department says you can return to your normal activities. Stay home except t o get medical care ? People who are m ildly ill with COVID-19 are able to isolate at home during their illness. ? You should restr ict activities outside your home, except for getting medical care. ? Do not go to wor k, school, or public areas. Avoid using public transportation, ri de-sharing, taxis, or public air travel. Separate yourself from other people and animals in your home People: As much as possible, you should stay in a specific room and away from other people in yo ur home. Also, you should use a separate bathroom, if available. Animals: You shoul d restrict contact with pets and other animals while you are sick with COVID-19 , just like you would around other people. Although there have not been repo rts of pets or other animals becoming sick with COVID-19, it is still recommend ed that people sick with COVID-19 limit contact with animals until more informa tion is known about the virus. When possible, have another member of your isabela sehold care for your animals while you are sick. If you are sick with COVID-19 , avoid contact with your pet, including petting, snuggling, being kissed or li cked, and sharing food. If you must care for your pet or be around animals whi le you are sick, wash your hands before and after you interact with pets and wear a facemask. See COVID-19 and Animals for more information. Call ahead before visiting your doctor If you have a [facility] appointment, call the healthcare provider and tell them that you have or m ay have COVID-19. This will help the healthcare provider's office take steps to keep other people from getting infected or exposed. Personal Protectio n: You should wear a facemask when you are around other people (e.g., sharing a room or vehicle) o r pets. If you are not able to wear a facemask (for example, because it causes trouble breathing), then people who live with you should not stay in the same r oom with you, or they should wear a facemask if they enter your room. Cover your coughs and sneezes ? Cover your mouth and nose with a tissue when you cough or sneeze. Throw used tissues in a lined trash can. Immediately wash your hands with soap and water for at least 20 se conds or, if soap and water are not available, clean your hands with an alco hol-based hand couples therapist that contains at least 60% alcohol. ? Wash your hands often with soap and water for at least 20 seconds, especially after blowing your nose, coughing, or sneezing; going to the bathroom; and before eating or p reparing food. If soap and water are not readily available, use an alcohol-bas ed hand couples therapist with at least 60% alcohol, covering all surfaces of your h ands and rubbing them together until they feel dry. Soap and water are the best option if hands are visibly dirty. ? Avoid touching y our eyes, nose, and mouth with unwashed hands. Avoid sharing pers onal household items ? You should not s hare dishes, drinking glasses, cups, eating utensils, towels, or bedding with ot her people or pets in your home. After using these items, they should be was hed thoroughly with soap and water. Clean all High-saurabh ch surfaces everyday ? High touch surfa ben include counters, tabletops, doorknobs, bathroom fixtures, toilets, phones, keyboards, tablets, and bedside tables. Use a household cleaning spray or wipe, according to the label instructions. Labels contain instructio ns for safe and effective use of the cleaning product including precauti ons you should take when applying the product, such as wearing gloves and making sure you have good ventilation during use of the product. Monitor your sympt oms: ? Seek prompt medi angelita attention if your illness is worsening (e.g., difficulty breathing). ? Before seeking c are, call your healthcare provider and tell them that you have, or are being evaluated for, COVID-19. Put on a facemask before you enter the facility. Thes e steps will help the healthcare provider's office to keep other people in th e office or waiting room from getting infected or exposed. ? If you have a me dical emergency and need to call 911, notify the dispatch personnel that you have, or are being evaluated for COVID- 19. If possible, put on a facemask befo re emergency medical services arrive. Discontinuing home isolation: ? Patients with co nfirmed COVID-19 should remain under home isolation precautions until the risk of secondary transmission to others is thought to be low. The decision to discontinue home isolation precautions should be made on a [id number]-pf-iafl basis , in consultation with healthcare providers and state and local health depar tments. Close contacts (ho usehold members, intimate partners, and caregivers) should follow these recom mendations: ? Close contacts s bebeto monitor their health; they should call their healthcare provider right la y if they develop symptoms suggestive of COVID-19 (e.g., fever, cough, shor tness of breath) (see Interim [place] Guidance for Risk Assessment and Public Health Management of Persons with Potential Coronavirus Disease 2019 (COVID-19) Exposur e in Travel-associated or Community Settings.) Allergies As of Da te: 07/16/2020 (No Known Allergie s) Date Reviewed: 01/2020 Reviewed by: Genet Nickerson Ma - Fully Assessed Reason for Visit: Covid-19 Hotline [0454] Primary Visit Diag nosis:Suspected COVID-19 virus infection [Z20.828] Order(s):2019 JAMI NAVIRUS [SQCOVID] Order #: [id number] FUTURE Prescriptions as o f 07/16/2020 Sig: ONDANSETRON 4 MG DISINTEGRATI* Take 1 tablet by mouth every * METFORMIN 500 MG TABLET Take 1 tablet by mouth twice * BUPROPION XL 1 50 MG TAB Take 1 tablet by mouth once d* PAROXETINE 40 MG TABLET Take 1 tablet by mouth once d* HYDROXYZINE HC L 25 MG TABLET Take 1 tablet by mouth every * TRAZODONE 50 M G TABLET Take 1 tablet by mouth daily * LISINOPRIL 40 MG TABLET Take 1 tablet by mouth once d* AMLODIPINE 10 MG TABLET Take 1 tablet by mouth once d* METOPROLOL SUC CINATE ER 50 MG* Take 1 tablet by mouth once d* Problem List As Of Date 07/16/2020 Noted Resolved Depression [F32. 9] 08/15/2013 More... Insomnia [G47.00 ] 08/15/2013 09/16/2018 More... Tobacco use [Z72 .0] 09/26/2013 More... Vitamin D defici ency [E55.9] 01/30/2014 More... Fatigue [R53.83] 06/25/2014 11/27/2016 More... Sinusitis [J32.9 ] 06/25/2014 11/27/2016 More... MOUNIKA (obstructive sleep apnea) mild [G47.33] 10/09/2014 09/16/2018 More... Hypertension [I1 0] 10/09/2014 More... Hospital dischar ge follow-up [Z09] 10/09/2014 11/27/2016 More... Type 2 diabetes mellitus without complication (*02/19/2016 More... with t ype 2 diabetes mellitus in firs*06/24/2016 11/27/2016 Irritable bowel syndrome with diarrhea [K58.0] 06/24/2016 09/16/2018 Pain in right el bow [M25.521] 10/27/2018 02/14/2019 Rash and nonspec ific skin eruption [R21] 07/17/2019 06/07/2020 Posterior tibial is tendinitis of both lower ext*08/31/2019 Accessory navicu lar bone of both feet [Q74.2] 08/31/2019 Posterior tibial tendonitis [M76.829] 02/13/2020 Encounter Status:C losed by SMILEY MARINA PA-C on 07/16/20 PROGRESS Observed: 07/15/2020 Status: COMPLETED Source: C [place] 3:16 PM [facility] REPOSITORY O ID: [id number] Author: Doug mcbride Service: ? Author Type: Physi ronny Type: Progress Not es Filed: 07/15/2020 3:55 PM Note Text: Chief Complaint No chief complaint on file. This Team Access M tez visit is a virtual encounter. It required patient-provider i nteraction for the medical decision making as documented below. HPI Joseph Osman is a 6 3 year old female who is contacted today for a virtual/telemedici ne visit. This is an established patient of Dr. Abbe Clark MD. Joseph is a diabetic and is hypertension, Diabetes Mellitus is fairly well controlled. Since the past 4 d ays she has been feeling poorly. Started with a vomiting and headache, she was feeling weak, had a cough, she has some sob with exertion, some whe ezing, vaping and smoking cigarette, congestion in the nose, nasal draina ge, ear pain, fatigue, some diarrhea. Past medical histo ry, appointments, medications, allergies reviewed 07/15/2020 Previous Medical H istory PAST MEDICAL HISTO RY Diagnosis Date - Asthma - Depression - Hypertension 09/2014 - Hypertriglycerid emia - Insomnia - Irritable bowel syndrome with diarrhea 06/24/2016 - MOUNIKA (obstructive sleep apnea) mild 10/09/2014 - Pancreatitis 201 1 Recurrent. - Pseudocyst of pa ncreas 2010 aspirated - Tobacco use 08/30 - Type 2 diabetes mellitus without complication (HCC) 02/19/2016 - Vitamin D defici ency Previous Surgical History PAST SURGICAL HIST ORY Procedure Laterali ty Date - CHOLECYSTECTOMY 02/2011 laparoscopic - COLONOSCOP W/ OR W/O BRSH SPEC 07/18/2014 Colonoscopy - COLONOSCOP W/ OR W/O BRSH SPEC 09/11/15 Colonoscopy - EGD EUS GEN ANES 07/21/2012 FNA pseudocyst - EGD W/O OR W/BRU SH/WASH 07/18/2014 EGD - PAST SURGICAL HI STORY OF 2004 dental extraction - PAST SURGICAL HI STORY OF 2011 drainage of pancr eatic cyst Family History FAMILY HISTORY Problem Relation A ge of Onset - Osteoporosis Mot her - Cancer Mother uterine or ce rvix - Hypertension Fat her - Diabetes Paterna l Grandmother - Stroke Paternal Grandfather - Hypertension Pat ernal Grandfather - No Known Problem s Brother Patient Allergies ALLERGIES No Known Allergies Current Medication s Current Outpatient Medications on File Prior to Visit Medication Sig - metFORMIN (GLUCO PHAGE) 500 mg tablet Take 1 tablet by mouth twice daily. - buPROPion XL (WE LLBUTRIN XL) 150 mg 24 hr tablet Take 1 tablet by mouth once daily. - PARoxetine (PAXI L) 40 mg tablet Take 1 tablet by mouth once daily. - hydrOXYzine HCl (ATARAX) 25 mg tablet Take 1 tablet by mouth every 6 hours as needed fo r Itching/Rash or Anxiety. - traZODone (DESYR EL) 50 mg tablet Take 1 tablet by mouth daily at bedtime. - lisinopril (ZEST RIL, PRINIVIL) 40 mg tablet Take 1 tablet by mouth once daily. - amLODIPine (NORV ASC) 10 mg tablet Take 1 tablet by mouth once daily. - metoprolol succi jason ER (TOPROL XL) 50 mg 24 hr tablet Take 1 tablet by mouth once daily. No current facilit y-administered medications on file prior to visit. Social History Social History Tobacco Use - Smoking status: Current Some Day Smoker Packs/day: 0.50 Years: 21.00 Pack years: 10.5 0 Types: Cigarette s Start date: 1996 - Smokeless tobacc o: Never Used Substance Use Topi cs - Alcohol use: Yes Alcohol/week: 1. 3 standard drinks Types: 1 Mixed D rinks per week Frequency: 2-4 t imes a month Drinks per sessi on: 1 or 2 Binge frequency: Less than monthly Comment: in donnie very since 2016 - Drug use: No Comment: No drug s Review of Symptoms GENERAL: No weight loss. No malaise or fevers HEENT: Negative fo r headaches No eye discharge o r redness No earaches or henrik inage No sore throat Nose POS/NEG for c ongestion and nasal discharge NECK: Negative for lumps, pain or significant neck swelling RESPIRATORY: No wh eezing, SOB, Difficulty breathing. CARDIOVASCULAR: Ne gative for chest pain GI: No nausea, vom iting, or diarrhea MUSCULOSKELETAL: N egative for muscle aches or bodyaches SKIN: Negative for lesions, rash, and itching Neuro: No lighthea dedness or dizziness EXAM: [facility] 04/26/2019 Deferred physical exam as visit was completed over the phone. Virtual visit completed us ing video, limited exam completed. General Appearance : Well appearing, alert, in no acute distress, well-hydrated, wel l nourished. Skin: Skin color Head: Normocephali c Psych: Attitude - cooperative, easily engaged in conversation Appearance - abdirashid l, hygiene and grooming appropriate Affect - euthymic, normal mood Mental status: Josephine rt, attentive. Speech is clear and fluent with good repetition, compre hension Coordination: No abnormal or extraneous movements. Gait/Stance: Postu re is normal. Health Maintenance List HEPATITIS C SCREEN ING due on 1995 HIV SCREENING due on 1995 DILATED RETINAL EX AM due on 12/26/2019 DIABETIC FOOT EXAM due on 07/19/2020 INFLUENZA(1) due o n 07/30/2020 HBA1C due on 11/19 ANNUAL PCP TEAM CH RONIC DISEASE VISIT due on 06/07/2021 MAMMOGRAM due on 0 06/21/2021 URINE ALBUMIN:CREA TININE RATIO due on 06/21/2021 LDL CHOLESTEROL du e on 06/21/2021 BP CONTROLLED (<13 0/80) due on 06/28/2021 DTAP,TDAP,TD(2 - T d) due on 09/26/2023 PAP TESTING due on 10/26/2023 HPV TESTING due on 10/26/2023 ONE PNEUMOVAX PRIO R TO AGE 65 Completed SPIROMETRY Complet ed Data reviewed Last 5 Encounter B P Readings: Date: BP : 06/28/2020 12 [BP Bhanu average[ 01/29/2020 15 01/17/2020 12 11/06/2019 12 09/05/2019 16 [BP BHANU AVERAGE[ BMI Readings from Last 5 Encounters: 01/29/20 : 29.58 k g/m? 01/17/20 : 29.23 k g/m? 11/06/19 : 29.23 k g/m? 09/05/19 : 28.20 k g/m? 08/24/19 : 28.24 k g/m? Last 5 Encounter W t Readings: Date: Wt : 01/29/2020 75 .8 kg (167 lb) 01/17/2020 74 .8 kg (165 lb) 11/06/2019 74 .8 kg (165 lb) 09/05/2019 72 .2 kg (159 lb 3.2 oz) 08/24/2019 72 .3 kg (159 lb 6.4 oz) Medication and all ergy list reviewed, reconciled and updated 07/15/2020 ASSESSMENT/PLAN: 1. Viral illness - ICD9: 079.99, ICD10: B34.9 (primary diagnosis) - Discussed viral etiology and rationale for treatment. - Symptomatic adama tment with prn analgesia - Supportive care with fluids and rest - asked her to ezio e, zinc, vit c, drink a lot of fluids preferable warm and steam inhalati on. 2. Type 2 diabetes mellitus without complication, without long-term current use of ins ulin (HCC) - ICD9: 250.00, ICD10: E11.9 Controlled. - Continue curren t medications 3. Essential hyper tension - ICD9: 401.9, ICD10: I10 - good control - Recommended reg ular aerobic exercise. - Recommend home blood pressure monitoring, to bring results in on next visit - Goal of BP <130 /80 4. Tobacco use - I CD9: 305.1, ICD10: Z72.0 - Cessation encour aged. - Physiologic and physical aspects of tobacco addiction as well as strategies for matias tting were discussed. - Counseling was russel arnold focusing on the harmful effects of this addiction especially given t he patient's medical condition(s) which will be worsened because of the neno micals in tobacco. 5. Fever, unspecif ied fever cause - ICD9: 780.60, ICD10: R50.9 Likely viral illne ss 6. Diarrhea, unspe cified type - ICD9: 787.91, ICD10: R19.7 See above ? covid 7. Other fatigue - ICD9: 780.79, ICD10: R53.83 DOUG BEARD MD CNCO Observed: 07/15/2020 Status: COMPLETED Source: [place] 12:00 AM [facility] REPOSITORY Letter Text PROGRESS Observed: 07/03/2020 Status: COMPLETED Source: [place] 1:51 PM [facility] REPOS[facility] HNO ID: [id number] Author: Mojgan Kumar (T ech) Service: ? Author Type: Techn ician Type: Progress Not es Filed: 07/03/2020 1 :51 PM Note Text: Radiology Servi ce Progress Note PATIENT NAME: Joseph Osman DATE OF SERVICE: July 03, 2020 TIME: 1:51 PM PATIENT IDENTITY V ERIFICATION COMPLETED USING TWO (2) IDENTIFIERS: Name and Date of confirmed by patient verbally. FALL SCREENING: Camargo s the patient had 2 falls in the last year or 1 fall with injury or cur rently using an Ambulatory Assistive Device (Walker, Cane, Wheelchair, Crutches, etc.)? No PATIENT GENDER URSZULA A: Female. status: : No stat us: NO. PATIENT RELEVANT I MPLANT DATA REVIEWED: Not Applicable RADIOLOGY DEPARTME NT: Mammography PERIPHERAL IV DATA : Not applicable SIGNED BY: Mojgan Dash July 03, 2020 1: 51 PM PROGRESS Observed: 07/03/2020 Status: COMPLETED Source: [place] 11:37 AM [facility] REPOS[facility] HNO ID: [id number] Author: Mojgan Quiñones (Te ch) Service: ? Author Type: Techn ician Type: Progress Not es Filed: 07/03/2020 11 :37 AM Note Text: Radiology Servi ce Progress Note PATIENT NAME: Joseph Osman DATE OF SERVICE: July 03, 2020 TIME: 11:37 AM PATIENT IDENTITY V ERIFICATION COMPLETED USING TWO (2) IDENTIFIERS: Name and Date of confirmed by patient verbally. FALL SCREENING: Camargo s the patient had 2 falls in the last year or 1 fall with injury or cur rently using an Ambulatory Assistive Device (Walker, Cane, Wheelchair, Crutches, etc.)? No PATIENT GENDER URSZULA A: Female. status: : No stat us: NO. PATIENT RELEVANT I MPLANT DATA REVIEWED: Not Applicable RADIOLOGY DEPARTME NT: Ultrasound PERIPHERAL IV DATA : Not applicable SIGNED BY: Mojgan Quiñones July 03, 2020 11 :37 AM [facility] Purplu BREAST LTD Observed: 07/03/2020 Status: F Source: [place] ANGELAND RT 11:29 AM [facility] REPOSITORY * * *Final Report* * * DATE OF EXAM: Jul 03 2020 11:29AM [id number] - [facility] US BREAST LTD RT / PROCEDURE REASON: Abnormal mammogram * * * * Physician Interpretation * * * * #[id number] - [facility] DIAGNOSTIC LEILANI #[id number] - [facility] U S BREAST LTD RT BILATERAL DIGITAL DIAGNOSTIC MAMMOGRAM WITH CAD: 07/03/2020 HISTORY: Abnormal Mammogram\BILATERAL CALL BACK Abnormal Mammogram. RESULT: TECHNIQUE: The moisés dy was acquired using full field digital technology and interpreted from s oft copy. Current study was also evaluated with a Computer Aided Detection (CAD). Comparison is made to exams dated: 06/21/2020 mammogram - [facility] a nd 10/26/2018 mammogram - [facility]. There are scattered fibroglandular elements in both breasts. Additional imaging reveals area of interest in the left breast on prior exam is not reprod uced and presumably represents superimposed breast tissue. There is a benign lymph node with a fatty hilum in the right breast. No significant mas ses, calcifications, or other findings are seen in either breast. IMPRESSION: BENIGN FINDING There is no mammog raphic evidence of malignancy. LIMITED ULTRASOUND OF RIGHT BREAST: 07/03/2020 RESULT: Comparison is made to exams dated: 06/21/2020 mammogram - [facility] a nd 10/26/2018 mammogram - [facility]. Color flow and amanda l-time ultrasound of the right breast upper outer quadrant were perf ormed. Melo scale images of the real- time examination were reviewed. There is a benign lymph node right breast at 10 o'clock that correlates with mammography. IMPRESSION: BENIGN FINDING There is no sonogr aphic evidence of malignancy. Return to annual m ammogram screening schedule is recommended. Zulema leon/william:07/03/2020 11:37:03 Multiple national specialty organizations have released breast cancer screening guidelin es for women at average risk for developing breast cancer - guideline s that are based on both evidence and opinion, yet differ on when to start and how often to screen for breast cancer. With representation fro taisha Breast Imaging, Internal Medicine, Women's Health, Family Medicine, a ga Medical/Surgical Oncology, the [facility] has carefully reviewed the data and reached the following consensus: 1) All women shoul d engage in shared decision-making with their providers to decide when to start and how often to screen; 2) All women shoul d have the opportunity to start screening mammography at age 40; 3) For women ages 45-55, we recommend annual screening mammograms; 4) For women ages 55 and over, we support both the transition from an annual to a bienni al interval if this aligns more with patient's values and preferences, o r continuation with annual screening; 5) All women shoul d discuss with their providers when to stop screening mammograms. Imaging Technologi st(s): RT José(R)(Taisha), [facility]; Sharla cuadra, [facility] OVERALL STUDY BIR ADS: 2 Benign finding Sucker Machine Operator: William Transcribe Date/Ti me: Jul 03 2020 11:08A Dictated by : RAHEEL KELLER MD This examination w as interpreted and the report reviewed and electronically sig krystian by: ZULEMA KELLER MD o n Jul 03 2020 11:37AM EST [id number] IACN [facility] DIAGNOSTIC [facility] Observed: 07/03/2020 Status: F Source: [place] 11:08 AM [facility] US REPOSITORY * * *Final Report* * * DATE OF EXAM: Jul 03 2020 11:08AM [id number] - [facility] DIAGNOSTIC [facility] / PROCEDURE REASON: Abnormal mammogram * * * * Physician Interpretation * * * * RESULT: #[id number] - [facility] DIAGNOSTIC [facility] #[id number] - [facility] U S BREAST LTD RT BILATERAL DIGITAL DIAGNOSTIC MAMMOGRAM WITH CAD: 07/03/2020 HISTORY: Abnormal Mammogram\BILATERAL CALL BACK Abnormal Mammogram. RESULT: TECHNIQUE: The moisés dy was acquired using full field digital technology and interpreted from s oft copy. Current study was also evaluated with a Computer Aided Detection (CAD). Comparison is made to exams dated: 06/21/2020 mammogram - [facility] a nd 10/26/2018 mammogram - [facility]. There are scattered fibroglandular elements in both breasts. Additional imaging reveals area of interest in the left breast on prior exam is not reprod uced and presumably represents superimposed breast tissue. There is a benign lymph node with a fatty hilum in the right breast. No significant mas ses, calcifications, or other findings are seen in either breast. IMPRESSION: BENIGN FINDING There is no mammog raphic evidence of malignancy. LIMITED ULTRASOUND OF RIGHT BREAST: 07/03/2020 RESULT: Comparison is made to exams dated: 06/21/2020 mammogram - [facility] a nd 10/26/2018 mammogram - [facility]. Color flow and amanda l-time ultrasound of the right breast upper outer quadrant were perf ormed. Melo scale images of the real- time examination were reviewed. There is a benign lymph node right breast at 10 o'clock that correlates with mammography. IMPRESSION: BENIGN FINDING There is no sonogr aphic evidence of malignancy. Return to annual m ammogram screening schedule is recommended. Zulema leon/william:07/03/2020 11:37:03 Multiple national specialty organizations have released breast cancer screening guidelin es for women at average risk for developing breast cancer - guideline s that are based on both evidence and opinion, yet differ on when to start and how often to screen for breast cancer. With representation fro Breast Imaging, Internal Medicine, Women's Health, Family Medicine, a nd Medical/Surgical Oncology, the [facility] has carefully reviewed the data and reached the following consensus: 1) All women shoul d engage in shared decision-making with their providers to decide when to start and how often to screen; 2) All women shoul d have the opportunity to start screening mammography at age 40; 3) For women ages 45-55, we recommend annual screening mammograms; 4) For women ages 55 and over, we support both the transition from an annual to a bienni al interval if this aligns more with patient's values and preferences, o r continuation with annual screening; 5) All women shoul d discuss with their providers when to stop screening mammograms. Imaging Technologi st(s): RT José(R)(M), [facility]; Sharla cuadra, [facility] OVERALL STUDY BIR ADS: 2 Benign finding Sucker Machine Operator: William Transcribe Date/Ti me: Jul 03 2020 11:08A Dictated by: ZULEMA KELLER MD This examination w as interpreted and the report reviewed and electronically sig krystian by: ZULEMA KELLER MD o n Jul 03 2020 11:37AM EST [id number] IACN PROGRESS Observed: 07/02/2020 Status: COMPLETED Source: [place] 7:51 AM [facility] HNO ID: [id number] Author: Jayjay Gibson Service: ? Author Type: Physi ronny Type: Progress Not es Filed: 07/02/2020 7 :58 AM Note Text: Follow up podiatri c office visit for: Chief Complaint: T his 45 year old who presents for follow up:left foot pain Patient presents t o clinic for follow-up left foot pain. She continues to have painful acces sherrill navicular syndrome of the left lower extremity. She has tried phys ical therapy, powerstep inserts, boot immobilization but continues to have pain. She is interested in surgery. She is diabetic with recent a1c of 6.8. She is a former smoker she states but states that she smoked 1/ 2 pack last week. She is on nicotine patch right now. She is interested in surgery for her left foot. PAIN EVALUATION 07/01/2020 1403 Pain Level: 3 Pain Location: F oot-Left Description: Ach ing Frequency: Navdeep nuous Intervention: Re laxation Hemoglobin A1C Date Value Ref Ran ge Status 05/20/2020 6.8 (H) 4.3 - 5.6 % Final Comment: Citizen Of [place] Diabete s Association guidelines indicate that patients with HgbA1c in the range 5.7-6.4 % are at increased risk for development of diabetes, and intervention by li festyle modification may be beneficial. HgbA1c greater or equal to 6.5% is c onsidered diagnostic of diabetes. PCP: Abbe sevilla MD PAST MEDICAL HISTO RY Diagnosis Date - Asthma - Depression - Hypertension 09/2014 - Hypertriglycerid emia - Insomnia - Irritable bowel syndrome with diarrhea 06/24/2016 - MOUNIKA (obstructive sleep apnea) mild 10/09/2014 - Pancreatitis 201 1 Recurrent. - Pseudocyst of pa ncreas 2010 aspirated - Tobacco use 08/30 - Type 2 diabetes mellitus without complication (HCC) 02/19/2016 - Vitamin D defici ency Current Outpatient Medications Medication Sig - metFORMIN (GLUCO PHAGE) 500 mg tablet Take 1 tablet by mouth twice daily. - buPROPion XL (WE LLBUTRIN XL) 150 mg 24 hr tablet Take 1 tablet by mouth once daily. - PARoxetine (PAXI L) 40 mg tablet Take 1 tablet by mouth once daily. - hydrOXYzine HCl (ATARAX) 25 mg tablet Take 1 tablet by mouth every 6 hours as needed fo r Itching/Rash or Anxiety. - traZODone (DESYR EL) 50 mg tablet Take 1 tablet by mouth daily at bedtime. - lisinopril (ZEST RIL, PRINIVIL) 40 mg tablet Take 1 tablet by mouth once daily. - amLODIPine (NORV ASC) 10 mg tablet Take 1 tablet by mouth once daily. - metoprolol succi jason ER (TOPROL XL) 50 mg 24 hr tablet Take 1 tablet by mouth once daily. No current facilit y-administered medications for this visit. ALLERGIES No Known Allergies PAST SURGICAL HIST ORY Procedure Laterali ty Date - CHOLECYSTECTOMY 02/2011 laparoscopic - COLONOSCOP W/ OR W/O BRSH SPEC 07/18/2014 Colonoscopy - COLONOSCOP W/ OR W/O BRSH SPEC 09/11/15 Colonoscopy - EGD EUS GEN ANES 07/21/2012 FNA pseudocyst - EGD W/O OR W/BRU SH/WASH 07/18/2014 EGD - PAST SURGICAL HI STORY OF 2004 dental extraction - PAST SURGICAL HI STORY OF 2011 drainage of pancr eatic cyst Physical Exam: Constitutional: Pt is a well developed 45 year old female who is alert, oriented, cooperat loren and in no apparent distress. OBJECTIVE: NVSI unchanged fro m previous visit. Dermatological: Nails 1-5 b/l are normal. Webspaces clean and dry 1-4 b/l. Skin appears well hydrated and supple. good color, texture, turgor. No open lesions present. No callos ities present. Musculoskeletal/Or thopaedic: Patient has pain t o palpation of left medial arch along posterior tibial tendon insertion. There is palpable accessory navicular to left lower extremity rom of left foot a nd ankle is full without equinus. 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 History and phy sical examination completed today. 2. Patient present s to clinic for follow-up left foot pain. She has painful accessory navicular of left foot. She has tried conservative care but continues to h ave pain. She is interested in surgery. She still smokes. I discuss ed why it is important to hold on elective surgery until she stops smoking, especially on a diabetic. 3. Continue with inserts and f/u when she can honestly say she is no longer smoking. 4. Heel pain is no w resolved. Jayjay Thibodeaux DPM PROGRESS Observed: 07/01/2020 Status: COMPLETED Source: [place] 3:39 PM [facility] RE[facility] HNO ID: [id number] Author: Ariadna Paul ert Service: ? Author Type: ? Type: Progress Not es Filed: 07/01/2020 3 :40 PM Note Text: Sleep Study Check- In Documentation Date: July 01 Name: Joseph Osman Comments: HST was returned in working order with all sleep questionnaires Ariadna Novak PROGRESS Observed: 07/01/2020 Status: COMPLETED Source: [place] 2:01 PM [facility] RE[facility] HNO ID: [id number] Author: Rubi ling Ma Service: ? Author Type: ? Type: Progress Not es Filed: 07/02/2020 7 :58 AM Note Text: AMB ROOMING INTAKE FLOWSHEET DATA Pain Pain Level: 3 Pain Location: Dimple t-Left Description: Lb goode Frequency: Continu ous Intervention: Rela xation Patient presents w ith: Left Foot - Establ ished Patient, Pain Travel Screening Question Respon se In the last month , have you been in contact with someone who was confirmed or suspe cted to have Coronavirus / COVID-19? No / Unsure Do you have any o f the following symptoms? None of these Have you traveled internationally in the last month? No Travel History T ravel since 05/31/20 No documented tr dionne since 05/31/20 CNOV Observed: 07/01/2020 Status: COMPLETED Source: [place] [facility] 2:00 PM [facility] REPOSITORY Office Visit (PODIWS) JOSEPH OSMAN ([id number]) 1975 F NFR Date Time Provider Department 07/01/20 2:00 PM JAYJAY THIBODEAUX During your vi sit today, we recorded the following information about you: Rubi Bellashelley Mckeon 7:58 AM Signed AMB ROOMING INTAKE FLOWSHEET DATA Pain Pain Level: 3 Pain Location: Dimple t-Left Description: Lb goode Frequency: Continu ous Intervention: Rela xation Patient presents w ith: Left Foot - Establ ished Patient, Pain Travel Screening Question Respon se In the last month , have you been in contact with someone who was confirmed or suspected to have Coronavirus / COVID-19? No / Unsure Do you have any o f the following symptoms? None of these Have you traveled internationally in the last month? No Travel History T ravel since 05/31/20 No documented tr dionne since 05/31/20 Jayjay Thibodeaux DPM 07/02/2020 7:58 AM Signed Follow up podiatri c office visit for: Chief Complaint: T his 45 year old who presents for follow up:left foot pain Patient presents t o clinic for follow-up left foot pain. She continues to have painful accessory navicular syndrome of the left lower extremity. She has tried physical the rapy, powerstep inserts, boot immobilization but continues to have pain. She is interested in surgery. She is diabetic with recent a1c of 6.8. She is a fo rmer smoker she states but states that she smoked 1/2 pack last week. She is on nicotine patch right now. She is interested in surgery for her left foot. PAIN EVALUATION 07/01/2020 1403 Pain Level: 3 Pain Location: F oot-Left Description: Ach ing Frequency: Navdeep nuous Intervention: Re laxation Hemoglobin A1C Date Value Ref Ran ge Status 05/20/2020 6.8 (H) 4.3 - 5.6 % Final Comment: [place] Diabete s Association guidelines indicate that patients with HgbA1c in the range 5.7-6.4 % are at increased risk for development of diabetes, and intervention by li eliotyle modification may be beneficial. HgbA1c greater or equal to 6.5% is c onsidered diagnostic of diabetes. PCP: Abbe sevilla MD PAST MEDICAL HISTO RY Diagnosis Date - Asthma - Depression - Hypertension 09/2014 - Hypertriglycerid emia - Insomnia - Irritable bowel syndrome with diarrhea 06/24/2016 - MOUNIKA (obstructive sleep apnea) mild 10/09/2014 - Pancreatitis 201 1 Recurrent. - Pseudocyst of pa ncreas 2010 aspirated - Tobacco use 08/30 - Type 2 diabetes mellitus without complication (HCC) 02/19/2016 - Vitamin D defici ency Current Outpatient Medications Medication Sig - metFORMIN (GLUCO PHAGE) 500 mg tablet Take 1 tablet by mouth twice daily. - buPROPion XL (WE LLBUTRIN XL) 150 mg 24 hr tablet Take 1 tablet by mouth once daily. - PARoxetine (PAXI L) 40 mg tablet Take 1 tablet by mouth once daily. - hydrOXYzine HCl (ATARAX) 25 mg tablet Take 1 tablet by mouth every 6 hours as needed for Itching /Rash or Anxiety. - traZODone (DESYR EL) 50 mg tablet Take 1 tablet by mouth daily at bedtime. - lisinopril (ZEST RIL, PRINIVIL) 40 mg tablet Take 1 tablet by mouth once daily. - amLODIPine (NORV ASC) 10 mg tablet Take 1 tablet by mouth once daily. - metoprolol succi jason ER (TOPROL XL) 50 mg 24 hr tablet Take 1 tablet by mouth once daily. No current facilit y-administered medications for this visit. ALLERGIES No Known Allergies PAST SURGICAL HIST ORY Procedure Laterali ty Date - CHOLECYSTECTOMY 02/2011 laparoscopic - COLONOSCOP W/ OR W/O RUST SPEC 07/18/2014 Colonoscopy - COLONOSCOP W/ OR W/O RUST SPEC 09/11/15 Colonoscopy - EGD EUS GEN ANES 07/21/2012 FNA pseudocyst - EGD W/O OR W/BRU SH/WASH 07/18/2014 EGD - PAST SURGICAL HI STORY OF 2004 dental extraction - PAST SURGICAL HI STORY OF 2011 drainage of pancr eatic cyst Physical Exam: Constitutional: Pt is a well developed 45 year old female who is alert, oriented, cooperat loren and in no apparent distress. OBJECTIVE: NVSI unchanged fro m previous visit. Dermatological: Nails 1-5 b/l are normal. Webspaces clean and dry 1-4 b/l. Skin appears well hydrated and suppl e. good color, texture, turgor. No open lesions present. No callosities presen t. Musculoskeletal/Or thopaedic: Patient has pain t o palpation of left medial arch along posterior tibial tendon insertion. There is palpable accessory navicular to left lower extremity rom of left foot a nd ankle is full without equinus. 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 History and phy sical examination completed today. 2. Patient present s to clinic for follow-up left foot pain. She has painful accessory navicula r of left foot. She has tried conservative care but continues to have pain. She is interested in surgery. She still smokes. I discussed why it i s important to hold on elective surgery until she stops smoking, especiall y on a diabetic. 3. Continue with inserts and f/u when she can honestly say she is no longer smoking. 4. Heel pain is no w resolved. Jayajy Thibodeaux DPM Referring Provider : JAYJAY THIBODEAUX [[id number]] Allergies As of Da te: 07/01/2020 (No Known Allergie s) Date Reviewed: 01/2020 Reviewed by: Genet Nickerson Ma - Fully Assessed Reason for Visit: Established Jennifer ent [175] Pain [78] Primary Visit Diag nosis:Posterior tibial tendinitis of left lower extremity [M76.822] Other Visit Diag nosis: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] Prescriptions as o f 07/01/2020 Sig: METFORMIN 500 MG TABLET Take 1 tablet by mouth twice * BUPROPION XL 1 50 MG TAB Take 1 tablet by mouth once d* PAROXETINE 40 MG TABLET Take 1 tablet by mouth once d* HYDROXYZINE HC L 25 MG TABLET Take 1 tablet by mouth every * TRAZODONE 50 M G TABLET Take 1 tablet by mouth daily * LISINOPRIL 40 MG TABLET Take 1 tablet by mouth once d* AMLODIPINE 10 MG TABLET Take 1 tablet by mouth once d* METOPROLOL SUC CINATE ER 50 MG* Take 1 tablet by mouth once d* Problem List As Of Date 07/01/2020 Noted Resolved Depression [F32. 9] 08/15/2013 More... Insomnia [G47.00 ] 08/15/2013 09/16/2018 More... Tobacco use [Z72 .0] 09/26/2013 More... Vitamin D defici ency [E55.9] 01/30/2014 More... Fatigue [R53.83] 06/25/2014 11/27/2016 More... Sinusitis [J32.9 ] 06/25/2014 11/27/2016 More... MOUNIKA (obstructive sleep apnea) mild [G47.33] 10/09/2014 09/16/2018 More... Hypertension [I1 0] 10/09/2014 More... Hospital dischar ge follow-up [Z09] 10/09/2014 11/27/2016 More... Type 2 diabetes mellitus without complication (*02/19/2016 More... 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 Follow-up and Disp osition History Recorded Encounter Status:C losed by JAYJYA THIBODEAUX DPM on 07/02/20 CNNURSE Observed: 06/28/2020 Status: COMPLETED Source: [facility] 3:00 PM CLINIC MAIN [facility] Nurse Visit (FAMPWS) JOSEPH OSMAN ([id number]) 1975 F NFR Date Time Provider Department 06/28/20 3:00 PM [facility] During your vi sit today, we recorded the following information about you: Pulse Blood pressure 81/minute 124/73 Lauren Jess FINANCE PROFESSIONAL 06/28/2020 3:22 PM Signed Manual Readin 36/74 Pulse: 78 BP Bhanu average: 12 P: 81 Repeat BP Check: 122/71 P78 # 1 121/71 P78 # 2 115/71 P79 # 3 126/73 P81 # 4 128/74 P85 # 5 131/78 P84 # 6 Reason for blood p ressure check - Last BP elevated Patient is: Taking medication as prescribed Yes Took medication to day Yes If no, date medication last taken N/A Experiencing side effects No BP was elevated at last appt 06/07/2020. No BP medication changes were made at that time. Taking all medications as prescribe. Denies any chest pain, shortness of breat h, dizziness, or headaches. Daily caffeine use. Working on smoking cessation for impending foot surgery. Alert and oriented. Pt has been identi fied by name and birthdate: Yes Allergies reviewed : Yes Latex allergy: no. Medication - presc ribed and OTC reviewed and updated: Yes Do you need any pr escription refills prior to your next visit: No Health Maintenance : Reviewed and not up to date and provider notified Patient advised to continue with current medications and would be contacted if any further instru ctions after review by PCP. Lauren Mercado LPN Referring Provider : ABBE CLARK [[id number]] Allergies As of Da te: 06/28/2020 (No Known Allergie s) Date Reviewed: Reviewed by: Alverto Mercado LPN - Fully Assessed Reason for Visit: Blood Pressure C heck [195] Primary Visit Diag nosis:Essential hypertension [I10] Prescriptions as o f 06/28/2020 Sig: METFORMIN 500 MG TABLET Take 1 tablet by mouth twice * BUPROPION XL 1 50 MG TAB Take 1 tablet by mouth once d* PAROXETINE 40 MG TABLET Take 1 tablet by mouth once d* HYDROXYZINE HC L 25 MG TABLET Take 1 tablet by mouth every * TRAZODONE 50 M G TABLET Take 1 tablet by mouth daily * LISINOPRIL 40 MG TABLET Take 1 tablet by mouth once d* AMLODIPINE 10 MG TABLET Take 1 tablet by mouth once d* METOPROLOL SUC CINATE ER 50 MG* Take 1 tablet by mouth once d* Problem List As Of Date 06/28/2020 Noted Resolved Depression [F32. 9] 08/15/2013 More... Insomnia [G47.00 ] 08/15/2013 09/16/2018 More... Tobacco use [Z72 .0] 09/26/2013 More... Vitamin D defici ency [E55.9] 01/30/2014 More... Fatigue [R53.83] 06/25/2014 11/27/2016 More... Sinusitis [J32.9 ] 06/25/2014 11/27/2016 More... MOUNIKA (obstructive sleep apnea) mild [G47.33] 10/09/2014 09/16/2018 More... Hypertension [I1 0] 10/09/2014 More... Hospital dischar ge follow-up [Z09] 10/09/2014 11/27/2016 More... Type 2 diabetes mellitus without complication (*02/19/2016 More... 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 Author Type: ? Type: Progress Not es Filed: 06/28/2020 3:22 PM Note Text: Manual Readin Pulse: 78 BP Bhanu average: 12 P: 81 Repeat BP Check: 122/71 P78 # 1 121/71 P78 # 2 115/71 P79 # 3 126/73 P81 # 4 128/74 P85 # 5 131/78 P84 # 6 Reason for blood p ressure check - Last BP elevated Patient is: Taking medication as prescribed Yes Took medication to day Yes If no, date medication last taken N/A Experiencing side effects No BP was elevated at last appt 06/07/2020. No BP medication changes were made at that time. Harish dykes all medications as prescribe. Denies any chest pain, shortness of breat h, dizziness, or headaches. Daily caffeine use. Working on smoking cessati on for impending foot surgery. Alert and oriented. Pt has been identi fied by name and birthdate: Yes Allergies reviewed : Yes Latex allergy: no. Medication - presc ribed and OTC reviewed and updated: Yes Do you need any pr escription refills prior to your next visit: No Health Maintenance : Reviewed and not up to date and provider notified Patient advised to continue with current medications and would be contacted if any f urther instructions after review by PCP. Lauren Mercado LPN, CNPN Observed: 06/28/2020 Status: COMPLETED Source: [place]ene [facility] 12:00 AM CLINIC MAIN [facility] REPOSITORY Telephone (INTMWS) JOSEPH OSMAN ([id number]) 1975 F NFR Date Time Provider Department 06/28/20 ABBE CLARK INTHANNAH During your vi sit today, we recorded the following information about you: Lauren Mercado LPN 06/28/2020 3:10 PM Signed Manual Readin Pulse: 78 BP Bhanu average: 12 P: 81 Repeat BP Check: 122/71 P78 # 1 121/71 P78 # 2 115/71 P79 # 3 126/73 P81 # 4 128/74 P85 # 5 131/78 P84 # 6 Reason for blood p ressure check - Last BP elevated Patient is: Taking medication as prescribed Yes Took medication to day Yes If no, date medication last taken N/A Experiencing side effects No BP was elevated at last appt 06/07/2020. No BP medication changes were made at that time. Taking all medications as prescribe. Denies any chest pain, shortness of breat h, dizziness, or headaches. Daily caffeine use. Working on smoking cessation for impending foot surgery. Alert and oriented. Pt has been identi fied by name and birthdate: Yes Allergies reviewed : Yes Latex allergy: no. Medication - presc ribed and OTC reviewed and updated: Yes Do you need any pr escription refills prior to your next visit: No Health Maintenance : Reviewed and not up to date and provider notified Patient advised to continue with current medications and would be contacted if any further instru ctions after review by PCP. Lauren Clark MD 06/28/2020 3:18 PM Signed Okay. No medicatio n change needed. Allergies As of Da te: 06/28/2020 (No Known Allergie s) Date Reviewed: Reviewed by: Alverto Mercado LPN - Fully Assessed Reason for Visit: Blood Pressure C jaspal [195] Prescriptions as o f 06/28/2020 Sig: METFORMIN 500 MG TABLET Take 1 tablet by mouth twice * BUPROPION XL 1 50 MG TAB Take 1 tablet by mouth once d* PAROXETINE 40 MG TABLET Take 1 tablet by mouth once d* HYDROXYZINE HC L 25 MG TABLET Take 1 tablet by mouth every * TRAZODONE 50 M G TABLET Take 1 tablet by mouth daily * LISINOPRIL 40 MG TABLET Take 1 tablet by mouth once d* AMLODIPINE 10 MG TABLET Take 1 tablet by mouth once d* METOPROLOL SUC CINATE ER 50 MG* Take 1 tablet by mouth once d* Problem List As Of Date 06/28/2020 Noted Resolved Depression [F32. 9] 08/15/2013 More... Insomnia [G47.00 ] 08/15/2013 09/16/2018 More... Tobacco use [Z72 .0] 09/26/2013 More... Vitamin D defici ency [E55.9] 01/30/2014 More... Fatigue [R53.83] 06/25/2014 11/27/2016 More... Sinusitis [J32.9 ] 06/25/2014 11/27/2016 More... MOUNIKA (obstructive sleep apnea) mild [G47.33] 10/09/2014 09/16/2018 More... Hypertension [I1 0] 10/09/2014 More... Hospital dischar ge follow-up [Z09] 10/09/2014 11/27/2016 More... Type 2 diabetes mellitus without complication (*02/19/2016 More... 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 Author Type: ? Type: Progress Not es Filed: 07/01/2020 3 :40 PM Note Text: Nomad: [id number] Date: 06/24/20 [employer] Mailout Trac patricia Number: [id number] [employer] Return Track ing Number: [id number] CNCO Observed: 06/21/2020 Status: COMPLETED Source: [place] 4:08 PM [facility] REPOSITORY HNO ID: [id number] Author: Mammograph y Coordinator Service: ? Author Type: Physi ronny Type: Letter Filed: 06/24/2020 1 1:36 PM Note Text: June 21, 2020 PID: [id number] Joseph Osman [address] [place] [address] Dear Ms. Osman, Your recent breast imaging exam on 06/21/2020 showed a possible finding that requires cristobal tional imaging studies for a complete evaluation. Most such findings are probably benign (not cancer). If you have a [facility] provider who ordered/prescribed your screening mammogram: Please call [phone] or EXT: [phone] to schedule an appoin tment for your additional imaging (if you have not already done so). If you DO NOT have a healthcare provider (ie you did not have an order/prescription for your screening mammogram): Please call to schedule an appointment for your additional imaging (if you camargo ve not already done so). You must have an o rder/prescription from your physician when calling to schedule your sharon ointment. If your order/prescription is not electronic, you must bring the hard copy with you on the day of your exam to avoid delays. Your imaging studi es and reports are kept on file at [facility] as part of your [facility] medical record, and are available for your continuing care. Thank you for allo wing us to help in meeting your health care needs. Sincerely, Dr. Decker Interpreting Radio logist [facility] (Additional brianda graham) PROGRESS Observed: 06/21/2020 Status: COMPLETED Source: Selene [facility] 4:06 PM [facility] REPOSITORY HNO ID: [id number] Author: Ashely Zamarripa martineMojgan Noguera Service: ? Author Type: Techn ician Type: Progress Not es Filed: 06/21/2020 4:07 PM Note Text: Radiology Servi ce Progress Note PATIENT NAME: Joseph Osman DATE OF SERVICE: June 21, 2020 TIME: 4:06 PM PATIENT IDENTITY V ERIFICATION COMPLETED USING TWO (2) IDENTIFIERS: Name and Date of confirmed by patient verbally. FALL SCREENING: Camargo s the patient had 2 falls in the last year or 1 fall with injury or cur rently using an Ambulatory Assistive Device (Walker, Cane, Wheelchair, Crutches, etc.)? No PATIENT GENDER URSZULA A: Female. status: : No stat us: NO. PATIENT RELEVANT I MPLANT DATA REVIEWED: Not Applicable RADIOLOGY DEPARTME NT: Mammography PERIPHERAL IV DATA : Not applicable SIGNED BY: Mojgan Chau June 21, 2020 4:0 6 PM CHAY SCREENING Observed: 06/21/2020 Status: F Source: MARILEE ECHOLS 4:05 PM [facility] REPOSITORY * * *Final Report* * * DATE OF EXAM: Jun 21 2020 4:05PM [facility] [id number] - [facility] SCREENING / PROCEDURE REASON: Encounter for screening mammogram for malignant neoplasm of breast * * * * Physician Interpretation * * * * RESULT: #[id number] - [facility] SCREENING BILATERAL DIGITAL SCREENING MAMMOGRAM WITH CAD: 06/21/2020 HISTORY: Encounter For Screening Mammogram For Malignant Neoplasm Of Breast /Screening Mammogram - patient reports NO breast symptoms /Priors available for renata mcknight. RESULT: TECHNIQUE: The moisés dy was acquired using full field digital technology and interpreted from s oft copy. Current study was also evaluated with a Computer Aided Detection (CAD). Comparison is made to exam dated: 10/26/2018 mammogram - [facility]. Th ere are scattered fibroglandular elements in both breasts. There is an asymme try in the right breast posterior depth superior region seen on the mediol ateral oblique view only. There is a possibl e asymmetry in the left breast middle depth central to the nipple seen on the craniocaudal view only. No other significa nt masses or calcifications are seen in either breast. IMPRESSION: INCOMP LETE: NEEDS ADDITIONAL IMAGING EVALUATION The asymmetry in t he right breast posterior depth superior region seen on the mediolateral o blique view only is indeterminate. Additional views are recommended. The possible asymm etry in the left breast middle depth central to the nipple seen on the craniocaudal view only is indeterminate. Additional views are recommen ded. Ami Elder lp/william: 0 16:08:[address](s): Ashely Betancourt, RT(R)(M), [facility] letter sent: Addit ional Imaging Needed Mammogram BI-RADS: 0 Incomplete: needs additional imaging evaluation If this report ind icates you need additional imaging, and it has NOT yet been performed, pl ease call , to schedule. We sincerely thank alla jeong for choosing the [facility] for your breast imaging needs. Multiple national specialty organizations have released breast cancer screening guidelin es for women at average risk for developing breast cancer - guideline s that are based on both evidence and opinion, yet differ on when to start and how often to screen for breast cancer. With representation merry sumner Breast Imaging, Internal Medicine, Women's Health, Family Medicine, a ga Medical/Surgical Oncology, the [facility] has carefully reviewed the data and reached the following consensus: 1) All women shoul d engage in shared decision-making with their providers to decide when to start and how often to screen; 2) All women shoul d have the opportunity to start screening mammography at age 40; 3) For women ages 45-55, we recommend annual screening mammograms; 4) For women ages 55 and over, we support both the transition from an annual to a bienni al interval if this aligns more with patient's values and preferences, o r continuation with annual screening; 5) All women shoul d discuss with their providers when to stop screening mammograms. Sucker Machine Operator: William Transcribe Date/Ti me: Jun 21 2020 3:52P Dictated by: AMI DECKER MD This examination w as interpreted and the report reviewed and electronically sig krystian by: AMI DECKER MD on Jun 21 2020 4:08PM EST [id number] IACN ALBUMIN/CREAT RATIO Collected: 06/21/2020 Status: F Source : MESA 7:54 AM [facility] REPOSITORY TYPE CODE TESTS RESULT OUT OF REFERENCE UNITS RANGE LAB UCRR 20-300 mg/dL Creatinine,Ur 228.5 ine,Ran LAB UALBR mg/L Albumin Urine 87.6 Random LAB UALBCR <30 mg/g High Albumin/Creat 38 Ratio Result Comment: Adult Male and Female Nephrotic Criteria: <30 mg/g is consid ered normal to mildly increased 30-300 mg/g is con sidered moderately increased >300 mg/g is consi dered severely increased KDIGO. (2013). KDI GO 2012 Clinical Practice Guideline for the Evaluation and Management of Chronic Kidney Disease. Official Journal of the International Society of Nephrology, 3(1), 1-150. Performed By: #### UACR #### [facility] [address] [place], [place] [address] LIPID PANEL, BASIC Collected: 06/21/2020 Status: F Source: MESA 7:51 AM [facility] REPOSITORY TYPE CODE TESTS RESULT OUT OF REFERENCE UNITS RANGE LAB CHOL <200 mg/dL Cholesterol High 203 Result Comment: <200 mg/dL, Desirable 200-239 mg/dL, Raghu rderline high >239 mg/dL, High LAB TRIGLY <150 mg/dL Triglyceride High 189 Result Comment: <150 mg/dL, Normal 150-199 mg/dL, Raghu rderline high 200-499 mg/dL, Hi gh >499 mg/dL, Very h igh LAB HDL >39 mg/dL HDL-Cholesterol 55 Result Comment: 40-59 mg/dL, Acceptable >59 mg/dL, High: N egative risk factor for coronary heart disease <40 mg/dL, Low: Po sitive risk factor for coronary heart disease LAB LDL <100 mg/dL LDL-Cholesterol High 110 Result Comment: <100 mg/dL, Optimal 100-129 mg/dL, Ne ar optimal/above optimal 130-159 mg/dL, Raghu rderline high 160-189 mg/dL, Hi gh >189 mg/dL, Very h igh Secondary preventi on optimal LDL Cholesterol levels are recommended to be < 70 mg/dL LAB NONHDL <130 mg/dL Non HDL High Cholesterol 148 Result Comment: <130 mg/dL, Optimal 130-159 mg/dL, Ne ar optimal/above optimal 160-189 mg/dL, Raghu rderline high 190-219 mg/dL, Hi gh >219 mg/dL, Very h igh Secondary preventi on optimal non HDL Cholesterol levels are recommended to be < 100 mg/dL LAB FT hrs Fasting Time 12 LAB VLDL <30 mg/dL High VLDL Cholesterol 38 LAB TCHDL <5.10 TC:HDL Ratio 3.69 LAB LDLHDL <2.54 LDL:HDL Ratio 2.00 Result Comment: Reference: 1. National Choles terol Education Program ATP III Guideline At-A-Glance Quick Desk Reference: National Heart, Lung, and Blood [place]. National Institutes of Health. 2001: [facility] Publication No. 01-3305. 2. An Internationa l Atherosclerosis Society position paper: global recommendations for the management of dyslipidemia: executive summary, Atherosclerosis. 2014: 232(2):410-413. Performed By: #### LIPB, VITD #### [facility] [address] [address] 195 VITAMIN D 25 HYDROXY Collected: 06/21/2020 Status: [facility] 7:51 AM [facility] REPOSITORY TYPE CODE TESTS RESULT OUT OF REFERENCE UNITS RANGE LAB VITD 31.0-80.0 ng/mL Low Vitamin D 25 17.5 Hydroxy Result Comment: Classification of 25 [place] Vitamin D status: Insufficiency/Mode rate Deficiency: < or = 30 ng/mL Sufficiency/[place] l Levels: 31 to 80 ng/mL Toxicity: > 100 ng /mL Test performed by chemiluminescent immunoassay. Performed By: #### LIPB, VITD #### [facility] [address] [address] 195 COMP METABOLIC PANEL Collected: 06/21/2020 Status: [facility] e: MESA 7:51 AM [facility] REPOSITORY TYPE CODE TESTS RESULT OUT OF REFERENCE UNITS RANGE LAB TP 6.3-8.0 g/dL Protein, Total 7.3 LAB ALB 3.9-4.9 g/dL Albumin 4.4 LAB CA 8.5-10.2 mg/dL Calcium, Total 9.0 LAB TBIL 0.2-1.3 mg/dL Bilirubin, Total 0.3 LAB ALKP 34-123 U/L Alkaline Phosphatase 81 LAB AST 13-35 U/L AST 15 LAB GLU 74-99 mg/dL Glucose High 181 Result Comment: The [place] Diabetes Association (ADA) provides guidance for cutoff values for fasting glucose and random glucose. The ADA defines fasting as no caloric intake for at least 8 hours. Fas ting plasma glucose results between 100 to 125 mg/dL indicate increased risk for diabetes (prediabetes). Fasting plasma glu cose results greater than or equal to 126 mg/dL meet the criteria for diagnosis of diabetes. In the absence of unequivocal hyperglycemia, results should be confirmed by repeat testing. In a patient with classic symptoms of h yperglycemia or hyperglycemic crisis, random plasma glucose results greater than or equal to 200 mg/dL meet the criteria for diagnosis of diabetes. Reference: Naz[place] ds of Medical Care in Diabetes 2016, [place] Diabetes Association. Diabetes Care. 2016.39(Suppl 1). LAB BUN 7-21 mg/dL BUN 14 LAB CRET 0.58-0.96 mg/dL Creatinine 0.60 LAB NA 136-144 mmol/L Sodium 136 LAB K 3.7-5.1 mmol/L Potassium 4.2 LAB CL 97-105 mmol/L Chloride 100 LAB CO2 22-30 mmol/L CO2 26 LAB AGAP 9-18 mmol/L Anion Gap 10 LAB ALT 7-38 U/L ALT 16 LAB GFRAA eGFR- Amer. >60 LAB GFRNAA . eGFR-All Other Races >60 Result Comment: eGFR (Estimated GFR) Units of measure: mL/min/1.73 meters squared eGFR is derived fr om the reexpressed MDRD Study equation using the following parameters: serum creatinine, age, gender and race. The creatinine assay has been calibrated to be traceable to IDMS. An eGFR <60 mL/min /1.73m2 for >3 months is consistent with chronic kidney disease. Refer to KDOQI guidelines for clinical interpretation. In patients with u nstable renal function, e.g. those with acute kidney injury, the eGFR may not accurately reflect actual GFR. MAGNESIUM Collected: 06/21/2020 Status: F Source: TERELL MAXWELL 7:51 AM [facility] REPOSITORY TYPE CODE TESTS RESULT OUT OF REFERENCE UNITS RANGE LAB MG 1.7-2.3 mg/dL Magnesium 1.7 PROGRESS Observed: 06/10/2020 Status: COMPLETED Source: Selene POTTER 9:29 AM [facility] REPOSITORY HNO ID: [id number] Author: Manjit diehl III Service: ? Author Type: Physi ronny Type: Progress Not es Filed: 07/01/2020 3 :40 PM Note Text: June 10, 2020 Standing PSG Order s signed in the last 90 days None Future PSG Orders signed in the last 90 days Ordered AuthJael crawford HOME SLEEP APNEA TEST (HSAT) [[id number]] 06/07/20 Danay (Refractory Products Supervisor) Older Assoc. diagnoses: Snoring [R06.83], Excessive daytime sleepiness [G47.19] Q: Indications: A: Obstructive sleep apnea Q: STOP-BANG cond itions - Select All That Apply: A: high blood PRESSURE A2: SNORING that i s loud or disruptive A3: TIREDNESS, fatigue or sleepiness during the day Q: Current use of supplemental oxygen during sleep period?: A: No All Prior Sleep St udies (past 365 days) Some values may b e hidden. Unless noted otherwise, only the newest values recorded on each d ate are displayed. Sleep Studies HOME SLEEP APNEA T EST (HSAT) Future Expected: Expires: 06/07/21 BMI Readings from Last 2 Encounters: 01/29/20 : 29.58 k g/m? 01/17/20 : 29.23 k g/m? PAST MEDICAL HISTO RY Diagnosis Date - Asthma - Depression - Hypertension 09/2014 - Hypertriglycerid emia - Insomnia - Irritable bowel syndrome with diarrhea 06/24/2016 - MOUNIKA (obstructive sleep apnea) mild 10/09/2014 - Pancreatitis 201 1 Recurrent. - Pseudocyst of pa ncreas 2010 aspirated - Tobacco use 08/30 - Type 2 diabetes mellitus without complication (HCC) 02/19/2016 - Vitamin D defici ency The medical record was reviewed to determine if the proposed sleep study conforms to the [facility] Practice Parameters for the Indications for Polysomnography an d Related Procedures, or if the sleep study is indicated for other reasons. Indications for st udy: MOUNIKA suspected with out comorbid medical or sleep disorders Sleep study to be performed: Home Sleep Apnea T est (HSAT) Special instructio ns: None-follow sarbjitdaysi nilo protocol Rowan Twiggs Poly-T I have read the ab angelinee protocol, edited as needed, and agree to the plan. Manjit Thornton III, PhD 2:26 PM, 06/10/2020 PROGRESS Observed: 06/07/2020 Status: COMPLETED Source: C [facility] 8:12 PM [facility] REPOSITORY HNO ID: [id number] Author: Jayjay Gibson Service: ? Author Type: Physi ronny Type: Progress Not es Filed: 06/07/2020 8:19 PM Note Text: June 07, 2020 Time of call: 10:4 7 (7 minutes) Follow up podiatri c office visit for: Chief Complaint: T his 45 year old who presents for follow up:b/l heel pain and painful l eft accessory navicular. Patient is contact ed for follow-up b/l heel pain. She had injection at last office visit and her pain is now resolved. She has no issues with her b/l heel. Patient does compl ain of pain to left navicular. She would like to discuss surgery. She does report that she still smokes 1- 2 cigarettes a few times / week. PAIN EVALUATION 06/07/2020 1023 Pain Level: 6 6-06/07 Pain Location: F oot-Left Description: Thr obbing;Sharp Frequency: Navdeep nuous Intervention: Re laxation Hemoglobin A1C Date Value Ref Ran ge Status 05/20/2020 6.8 (H) 4.3 - 5.6 % Final Comment: Citizen Of [place] Diabete s Association guidelines indicate that patients with HgbA1c in the range 5.7-6.4 % are at increased risk for development of diabetes, and intervention by li festyle modification may be beneficial. HgbA1c greater or equal to 6.5% is c onsidered diagnostic of diabetes. PCP: Abbe sevilla MD PAST MEDICAL HISTO RY Diagnosis Date - Asthma - Depression - Hypertension 09/2014 - Hypertriglycerid emia - Insomnia - Irritable bowel syndrome with diarrhea 06/24/2016 - MOUNIKA (obstructive sleep apnea) mild 10/09/2014 - Pancreatitis 201 1 Recurrent. - Pseudocyst of pa ncreas 2010 aspirated - Tobacco use 08/30 - Type 2 diabetes mellitus without complication (HCC) 02/19/2016 - Vitamin D defici ency Current Outpatient Medications Medication Sig - metFORMIN (GLUCO PHAGE) 500 mg tablet Take 1 tablet by mouth twice daily. - buPROPion XL (WE LLBUTRIN XL) 150 mg 24 hr tablet Take 1 tablet by mouth once daily. - PARoxetine (PAXI L) 40 mg tablet Take 1 tablet by mouth once daily. - hydrOXYzine HCl (ATARAX) 25 mg tablet Take 1 tablet by mouth every 6 hours as needed fo r Itching/Rash or Anxiety. - traZODone (DESYR EL) 50 mg tablet Take 1 tablet by mouth daily at bedtime. - lisinopril (ZEST RIL, PRINIVIL) 40 mg tablet Take 1 tablet by mouth once daily. - amLODIPine (NORV ASC) 10 mg tablet Take 1 tablet by mouth once daily. - metoprolol succi jason ER (TOPROL XL) 50 mg 24 hr tablet Take 1 tablet by mouth once daily. No current facilit y-administered medications for this visit. ALLERGIES No Known Allergies PAST SURGICAL HIST ORY Procedure Laterali ty Date - CHOLECYSTECTOMY 02/2011 laparoscopic - COLONOSCOP W/ OR W/O RUST SPEC 07/18/2014 Colonoscopy - COLONOSCOP W/ OR W/O RUST SPEC 09/11/15 Colonoscopy - EGD EUS GEN ANES 07/21/2012 FNA pseudocyst - EGD W/O OR W/BRU SH/WASH 07/18/2014 EGD - PAST SURGICAL HI STORY OF 2004 dental extraction - PAST SURGICAL HI STORY OF 2011 drainage of pancr eatic cyst Physical Exam: Constitutional: Pt is a well developed 45 year old female who is alert, oriented, cooperat loren and in no apparent distress. OBJECTIVE: Musculoskeletal/Or thopaedic: Mri reviewed. The re is accessory navicular, left foot ASSESSMENT: (M76.822) Posterio r tibial tendinitis of left lower extremity (primary encounter diagnosi s) (Q74.2) Accessory navicular bone of both feet (M72.2) Plantar fa sciitis, bilateral PLAN: I had conversation with patient. I reviewed nicotine levels with her. Levels suggest claudia t she has some exposure to nicotine and she does open up that she still smo kes 1-2 cigarettes several times per week. Given her smoking and her di abetes, I did inform her that this does risk slower healing. Ideally, if she were to pursue surgery, she would do so when she stops all smoking. She would like to try to stop smoking and then schedule surgery. She will f/u in 2-3 weeks and then possibly schedule surgery. B/l heel pain is n ow resolved. Continue with inserts and stretching prn. Jayjay Thibodeaux DPM PROGRESS Observed: 06/07/2020 Status: COMPLETED Source: C [place] 4:52 PM [facility] REPOSITORY HNO ID: [id number] Author: Canelo tavarez Coordinator I Service: ? Author Type: ? Type: Progress Not es Filed: 07/01/2020 3 :40 PM Note Text: June 07, 2020 An order has been received for Home Sleep Apnea Test (HSAT) from Danay Ferris APRN.C [facility] , [facility] Staff. Visit prep complet e. Comments :No The sleep study is scheduled for 06/25. Insurance: Payor: ANTHEM / Plan: BLUE CARD PPO / Product Type: PPO / Payor/Plan Subscr Sex Relation Sub. Ins. ID Effective Group Num 1. ANTHEM - BLUE* JOSEPH OSMAN 1975 Female Self [id number] [birth year] [address] Canelo Cao Coordi nator I PROGRESS Observed: 06/07/2020 Status: COMPLETED Source: C [place] 10:22 AM [facility] REPOSITORY HNO ID: [id number] Author: Rubi ling Ma Service: ? Author Type: ? Type: Progress Not es Filed: 06/07/2020 8:19 PM Note Text: AMB ROOMING INTAKE FLOWSHEET DATA Pain Pain Level: 6(-) Pain Location: Dimple t-Left Description: Throb boyd, Sharp Frequency: Continu ous Intervention: Rela xation Patient presents w ith: Left Foot - Establ ished Patient, Pain Travel Screening Question Respon se In the last month , have you been in contact with someone who was confirmed or suspe cted to have Coronavirus / COVID-19? No / Unsure Do you have any o f the following symptoms? None of these Have you traveled internationally in the last month? No Travel History T ravel since 05/08/20 No documented tr dionne since 05/08/20 Patient states jennifer n in area that has extra bone has increased. PROGRESS Observed: 06/07/2020 Status: COMPLETED Source: [place] 8:19 AM [facility] REPOSITORY HNO ID: [id number] Author: Danay (Eric) Older Service: ? Author Type: Nurse Practitioner Type: Progress Not es Filed: 06/07/2020 9:39 AM Note Text: This Team Access Taisha reagan visit is a phone encounter. It required patient-provider i nteraction for the medical decision making as documented below. Patient agrees to the visit: Yes Patient Location: [place] CC: Patient augustine garcia with: Follow Up HPI Joseph Osman is a 6 3 year old female who is contacted today for a phone visit. This is an established patient of Dr. Abbe Clark MD. Patient reports no cturnal leg cramps that are severe, wake her up at night. Started ezio ing a MVI a few weeks ago and cramps have eased up slightly. Reports drinking a lot of water. Denies need to constantly move legs. No swelling, numbness, tingling or daytime symptoms. Depression: emily sow on Paxil 40 mg daily. Takes Trazodone as needed for sleep and hydroxyz ine as needed for anxiety. Feels Paxil is effective except feels tired all the time, falls asleep easily during the day and some days doesn't want to get out of bed. Denies SI. Rarely drinks alcohol, no drug u se. Denies panic attacks, excessive worrying, irritability, depr essed mood. Admits to loud, disruptive snoring. Denies witnessed apnea. W as tested for sleep apnea years ago but not sure what the results were. HTN-Medication ajson nges:No Taking all medicat ions as prescribed: Yes Side effects: No Home BP's: Yes ave rage in the 130's-140's/90's Denies: headache, chest pain, palpitations, dyspnea and peripheral edema. Last 3 Encounter B P Readings: Date: BP : 01/29/2020 15 8/82 01/17/2020 12 80 11/06/2019 12 Diabetes: Home blo od sugar readings: only checks once every 1-2 weeks, this morning was 1 90 which is unusual for her Hypoglycemia: No She is compliant w ith medication(s) and is tolerating med(s) without any side effects howev er she ran out of metformin about one month ago and did not refill for orestes e reason Last Ophthalmology exam was over one year ago Patient's last HgA 1C was Hemoglobin A1C (%) Date Value 05/20/2020 6.8 07/27/2019 7.2 Asthma: States she unsure why the diagnosis of asthma is listed. Was having some issues with freque nt episodes of bronchitis but hasn't needed a rescue inhaler for over a year 1. In the past 4 w eeks, how much of the time did your Asthma keep you from getting as much do ne at work, school, or at home? None of the time ( 5) 2. During the past 4 weeks, how often have you had shortness of breath? None of the time ( 5) 3. During the past 4 weeks, how often did your Asthma symptoms; wheezing, coughing, shortnes s of breath, chest tightness or pain, wake you up at night or earlier t [place] usual in the morning? None of the time ( 5) 4. During the past 4 weeks, how often have you used your rescue inhaler or nebulizer medicati on such as Albuterol? None of the time ( 5) 5. How would you r ate your Asthma control during the past 4 weeks? (5) Total= 25 Score 19 or less= asthma not well controlled Tobacco use: start ed smoking again, only a few cigarettes a day. Feels like it is more of a habit then an addiction. Wants to try and completely stop. Has not had success with the nicotene lozenges and gum in the past. REVIEW OF SYSTEMS See HPI PAST MEDICAL HISTO RY Diagnosis Date - Asthma - Depression - Hypertension 09/2014 - Hypertriglycerid emia - Insomnia - Irritable bowel syndrome with diarrhea 06/24/2016 - MOUNIKA (obstructive sleep apnea) mild 10/09/2014 - Pancreatitis 201 1 Recurrent. - Pseudocyst of pa ncreas 2010 aspirated - Tobacco use 08/30 - Type 2 diabetes mellitus without complication (HCC) 02/19/2016 - Vitamin D defici ency PAST SURGICAL HIST ORY Procedure Laterali ty Date - CHOLECYSTECTOMY 02/2011 laparoscopic - COLONOSCOP W/ OR W/O RUST SPEC 07/18/2014 Colonoscopy - COLONOSCOP W/ OR W/O RUST SPEC 09/11/15 Colonoscopy - EGD EUS GEN ANES 07/21/2012 FNA pseudocyst - EGD W/O OR W/BRU SH/WASH 07/18/2014 EGD - PAST SURGICAL HI STORY OF 2004 dental extraction - PAST SURGICAL HI STORY OF 2011 drainage of pancr eatic cyst ALLERGIES Patient has no known allergies. MEDICATIONS PARoxetine (PAXIL) 40 mg tablet Take 1 tablet by mouth once daily. hydrOXYzine HCl (A TARAX) 25 mg tablet Take 1 tablet by mouth every 6 hours as needed for Itch ing/Rash or Anxiety. traZODone (DESYREL ) 50 mg tablet Take 1 tablet by mouth daily at bedtime. lisinopril (ZESTRI L, PRINIVIL) 40 mg tablet Take 1 tablet by mouth once daily. amLODIPine (NORVAS C) 10 mg tablet Take 1 tablet by mouth once daily. metoprolol succina te ER (TOPROL XL) 50 mg 24 hr tablet Take 1 tablet by mouth once daily. albuterol sulfate 90 mcg/actuation aepb EVERY 6 HOURS NEEDED PRN For Wheezing fluticasone (FLOVE NT) 110 mcg/actuation inhaler fluticasone Fluticasone 110 Mcg [Flovent ( Sp)] 1 PUFF inhalation TWICE A DAY July 25, 2019 Active 07-25-2019 [facility] ([id number]) metFORMIN (GLUCOPH AGE) 500 mg tablet Take 500 mg by mouth twice daily. ranitidine (ZANTAC ) 150 mg tablet Take 1 tablet by mouth twice daily. triamcinolone acet onide (KENALOG) 0.1 % cream Apply 1 application to affected area thre e times daily. Apply sparingly to area for rash/itching. FAMILY HISTORY Problem Relation A ge of Onset - Osteoporosis Mot her - Cancer Mother uterine or ce rvix - Hypertension Fat her - Diabetes Paterna l Grandmother - Stroke Paternal Grandfather - Hypertension Pat ernal Grandfather - No Known Problem s Brother Social History Tobacco Use - Smoking status: Current Every Day Smoker Packs/day: 0.50 Years: 21.00 Pack years: 10.5 0 Types: Cigarette s Start date: 1996 - Smokeless tobacc o: Never Used Substance Use Topi cs - Alcohol use: Yes Alcohol/week: 5. 0 standard drinks Types: 2 Mixed D rinks per week Frequency: 2-4 t imes a month Drinks per sessi on: 3 or 4 Binge frequency: Less than monthly Comment: in donnie very since 2017 - Drug use: No Comment: No drug s EXAM: Deferred physical exam as visit was completed over the phone Patient is speakin g in complete sentences without obvious respiratory distress or audibl e wheezing. DATA REVIEWED: Mos t recent labs SPIROMETRY due on 1995 HEPATITIS C SCREEN ING due on 1995 HIV SCREENING due on 1995 BP CONTROLLED (<13 0/80) due on 1995 URINE ALBUMIN:CREA TININE RATIO due on 10/10/2019 MAMMOGRAM due on 12/26/2018 DILATED RETINAL EX AM due on 12/26/2019 LDL CHOLESTEROL du e on 07/10/2020 DIABETIC FOOT EXAM due on 07/19/2020 ANNUAL PCP TEAM CH RONIC DISEASE VISIT due on 07/27/2020 INFLUENZA(1) due o n 07/30/2020 HBA1C due on 11/19 DTAP,TDAP,TD(2 - T d) due on 09/26/2023 PAP TESTING due on 10/26/2023 HPV TESTING due on 10/26/2023 ONE PNEUMOVAX PRIO R TO AGE 65 Completed ASSESSMENT/PLAN: 1. Type 2 diabetes mellitus without complication, without long-term current use of ins ulin (HCC) - ICD9: 250.00, ICD10: E11.9 (primary diagnosis) Improved control - Continue curren t medications - Blood glucose m onitoring on a 1-2 times per week schedule - Follow up in 4 months, sooner should any other issues arise. - ALBUMIN/CREAT R ATIO RND UR - LIPID PANEL BAS IC 2. Nocturnal leg c ramps - ICD9: 327.52, ICD10: G47.62 Discussed preventi on and treatment Check labs: - COMP METABOLIC PANEL - MAGNESIUM BLD 3. Excessive dayti me sleepiness - ICD9: 780.54, ICD10: G47.19 Previous sleep moisés dy in 2013 showed mild sleep apnea, patient did not have any further testin g or treatment. Symptoms concerning for worsening MOUNIKA - HOME SLEEP APNE A TEST (HSAT) 4. Snoring - ICD9: 786.09, ICD10: R06.83 - HOME SLEEP APNE A TEST (HSAT) 5. Mild episode of recurrent major depressive disorder (HCC) - ICD9: 296.31, ICD10: F33 .0 Anhedonia, fatigue , sleeping a lot may be due to sleep apnea however could also indicate wors ening depression. Taking Paxil as prescribed. Discussed treatment options, agreeable to adding on Wellbutrin with added benefit of smoking cessation 6. Tobacco use - I CD9: 305.1, ICD10: Z72.0 - Cessation encour aged. - Physiologic and physical aspects of tobacco addiction as well as strategies for matias tting were discussed. - Counseling was russel arnold focusing on the harmful effects of this addiction especially given t he patient's medical condition(s) which will be worsened because of the neno micals in tobacco. - Prescription for Wellbutrin given as above 7. Essential hyper tension - ICD9: 401.9, ICD10: I10 - suboptimal cont rol previous office visit and at home - Continue curren t medication(s) - Recommend home blood pressure monitoring, to bring results in on next visit - Nurse visit to recheck in 3 weeks, sooner should new symptoms or problems arise. - Goal of BP <130 /80 8. Encounter for s creening mammogram for malignant neoplasm of breast - ICD9: V76.12, ICD1 0: Z12.31 - CHAY SCREENING 9. Mild intermitte nt asthma without complication - ICD9: 493.90, ICD10: J45.20 Patient does not t hink she has asthma, will remove from active problem list and add to me dical history. 10. Vitamin D defi ciency - ICD9: 268.9, ICD10: E55.9 - VITAMIN D 25 HY DROXY Prescription instr uctions reviewed with patient as applicable. Potential red flag symptoms discussed with the patient. Reviewed appropriate action plan to take if re d flag symptoms occur. Patient agreeable to treatment plan. During this patien t visit I have spent approximately 23 minutes in counseling regardi ng treatment options, medications, test results and coordinating care. SANJUANA Anderson CNPN Observed: 06/07/2020 Status: COMPLETED Source: [facility] 12:00 AM [facility] REPOSITORY Telephone (INTMWS) XOCHILTJOSEPH Pena Salbador ([id number]) 1975 F NFR Date Time Provider Department 06/07/20 DANAY FERRIS (ERIC) INTMWS During your vi sit today, we recorded the following information about you: SANJUANA Anderson 06/07/2020 8:55 AM Signed Patient needs sche duled for the following ordered at today's virtual visit: home sleep study, mammogram, 3 week nurse visit for BP check, 4 month follow-up with PCP, lab work SANJUANA Anderson Cm 06/07/2020 8:58 AM Signed PSS please assist with scheduling. Thank you. Vane Kay Pss 06/18/2020 9:01 AM Signed Home sleep study s cheduled. L/m for patient to call and schedule the rest of these appts. Janny Kay Pss Samantha Kay Pss 06/18/2020 4:24 PM Signed Patient called in and was scheduled for the remainder of her appts. Samantha Kay Pss Allergies As of Da te: 06/07/2020 (No Known Allergie s) Date Reviewed: 08/2020 Reviewed by: Genet Nickerson Ma - Fully Assessed Reason for Visit: Appointment [186 ] Prescriptions as o f 06/07/2020 Sig: METFORMIN 500 MG TABLET Take 1 tablet by mouth twice * BUPROPION XL 1 50 MG TAB Take 1 tablet by mouth once d* PAROXETINE 40 MG TABLET Take 1 tablet by mouth once d* HYDROXYZINE HC L 25 MG TABLET Take 1 tablet by mouth every * TRAZODONE 50 M G TABLET Take 1 tablet by mouth daily * LISINOPRIL 40 MG TABLET Take 1 tablet by mouth once d* AMLODIPINE 10 MG TABLET Take 1 tablet by mouth once d* METOPROLOL SUC CINATE ER 50 MG* Take 1 tablet by mouth once d* Problem List As Of Date 06/07/2020 Noted Resolved Depression [F32. 9] 08/15/2013 More... Insomnia [G47.00 ] 08/15/2013 09/16/2018 More... Tobacco use [Z72 .0] 09/26/2013 More... Vitamin D defici ency [E55.9] 01/30/2014 More... Fatigue [R53.83] 06/25/2014 11/27/2016 More... Sinusitis [J32.9 ] 06/25/2014 11/27/2016 More... MOUNIKA (obstructive sleep apnea) mild [G47.33] 10/09/2014 09/16/2018 More... Hypertension [I1 0] 10/09/2014 More... Hospital dischar ge follow-up [Z09] 10/09/2014 11/27/2016 More... Type 2 diabetes mellitus without complication (*02/19/2016 More... with t ype 2 diabetes mellitus in firs*06/24/2016 11/27/2016 Irritable bowel syndrome with diarrhea [K58.0] 06/24/2016 09/16/2018 Pain in right el bow [M25.521] 10/27/2018 02/14/2019 Rash and nonspec ific skin eruption [R21] 07/17/2019 06/07/2020 Posterior tibial is tendinitis of both lower ext*08/31/2019 Accessory navicu lar bone of both feet [Q74.2] 08/31/2019 Posterior tibial tendonitis [M76.829] 02/13/2020 Encounter Status:C losed by SAMANTHA CHA on 06/18/20 ERICN Observed: 06/03/2020 Status: COMPLETED Source: [place] [facility] 12:00 AM CLINIC [facility]IN [facility] REPOSITORY Telephone (PODIWS) JOSEPH OSMAN ([id number]) 1975 F NFR Date Time Provider Department 06/03/20 JAYJAY THIBODEAUX During your vi sit today, we recorded the following information about you: Rubi Nickerson Ma 9:11 AM Signed ----- Message from Jayjay Thibodeaux sent at 05/30/2020 7:21 PM EDT ----- I attempted to con tact patient with results. No answer. Left message for patient to contact office so that we can discuss how her injection faired and discuss results of blood work MARYCARMEN Candelario Ma 8:54 AM Signed Patient scheduled for visit for today. Can be discussed then. Allergies As of Da te: 06/03/2020 (No Known Allergie s) Date Reviewed: Reviewed by: Genet Nickerson Ma - Fully Assessed Reason for Visit: Results [95] Prescriptions as o f 06/03/2020 Sig: PAROXETINE 40 MG TABLET Take 1 tablet by mouth once d* HYDROXYZINE HC L 25 MG TABLET Take 1 tablet by mouth every * TRAZODONE 50 M G TABLET Take 1 tablet by mouth daily * LISINOPRIL 40 MG TABLET Take 1 tablet by mouth once d* AMLODIPINE 10 MG TABLET Take 1 tablet by mouth once d* METOPROLOL SUC CINATE ER 50 MG* Take 1 tablet by mouth once d* X ALBUTEROL SULF ATE 90 MCG/ACTU* EVERY 6 HOURS NEEDED PRN F* X FLUTICASONE [place] OPIONATE 110 MC* fluticasone Fluticasone 110 M* X METFORMIN 500 MG TABLET Take 500 mg by mouth twice da* X RANITIDINE 150 MG TABLET Take 1 tablet by mouth twice * X TRIAMCINOLONE ACETONIDE 0.1 %* Apply 1 application to affect* Ellie rizo not taking: Reported on 08/16/2019 Problem List As Of Date 06/03/2020 Noted Resolved Depression [F32. 9] 08/15/2013 More... Insomnia [G47.00 ] 08/15/2013 09/16/2018 More... Asthma [J45.909] 08/15/2013 Tobacco use [Z72 .0] 09/26/2013 More... Vitamin D defici ency [E55.9] 01/30/2014 More... Fatigue [R53.83] 06/25/2014 11/27/2016 More... Sinusitis [J32.9 ] 06/25/2014 11/27/2016 More... MOUNIKA (obstructive sleep apnea) mild [G47.33] 10/09/2014 09/16/2018 More... Hypertension [I1 0] 10/09/2014 More... Hospital dischar ge follow-up [Z09] 10/09/2014 11/27/2016 More... Type 2 diabetes mellitus without complication (*02/19/2016 More... 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] 08/31/2019 Posterior tibial tendonitis [M76.829] 02/13/2020 Encounter Status:C losed by RUBI NICKERSON MA on 06/07/20 CNPN Observed: 05/21/2020 Status: COMPLETED Source: [place] [facility] 12:00 AM [facility] REPOSITORY Telephone (INTMWS) JOSEPH OSMAN ([id number]) 1975 F NFR Date Time Provider Department 05/21/20 ABBE CLARK INTMWS During your vi sit today, we recorded the following information about you: Lindsey Arzola LPN 05/21/2020 10:52 AM Signed ----- Message from Abbe Clark sent at 05/21/2020 10:49 AM EDT ----- Schedule in office visit for follow up with me or Danay. Lindsey Arzola FINANCE PROFESSIONAL 05/21/2020 10:57 AM Signed Pt has reviewed th is via my chart. Sarika Cassandra Anita BRUNO 05/29/2020 8:41 AM Signed ----- Message from Abbe Clark sent at 05/28/2020 8:52 PM EDT ----- Schedule DM, HTN f ollow up. Sarika Cassandra Howard LPN 05/29/2020 8:57 AM Signed ----- Message from Abbe Clark sent at 05/28/2020 8:52 PM EDT ----- Schedule DM, HTN f ollow up. Sarika Howard LPN 05/29/2020 9:00 AM Signed Left message for P atient to call office to scheduled follow-up with PCP or [facility] [facility]. Sarika Arauz LPN 05/31/2020 3:15 PM Signed Patient called [facility] to schedule apt to discuss labs/DM and HTN. Was not able to book. Going ou t to far. Please call patient to schedule. She will await your call. Pauline tavarez 06/03/2020 10:09 AM Signed Left message for p atient to call office back and to ask to speak with a nurse. Vane SWANSON 06/03/2020 4:30 PM Signed Patient returned c all and went over results, notes from Dr Clark with understanding. Basilia edumyron appt for 06/07 with [facility] [facility]. Allergies As of Da te: 05/21/2020 (No Known Allergie s) Date Reviewed: Reviewed by: Genet Nickerson Ma - Fully Assessed Reason for Visit: Results [95] Prescriptions as o f 05/21/2020 Sig: PAROXETINE 40 MG TABLET Take 1 tablet by mouth once d* HYDROXYZINE HC L 25 MG TABLET Take 1 tablet by mouth every * TRAZODONE 50 M G TABLET Take 1 tablet by mouth daily * LISINOPRIL 40 MG TABLET Take 1 tablet by mouth once d* AMLODIPINE 10 MG TABLET Take 1 tablet by mouth once d* METOPROLOL SUC CINATE ER 50 MG* Take 1 tablet by mouth once d* ALBUTEROL SULF ATE 90 MCG/ACTU* EVERY 6 HOURS NEEDED PRN F* FLUTICASONE [place] OPIONATE 110 MC* fluticasone Fluticasone 110 M* METFORMIN 500 MG TABLET Take 500 mg by mouth twice da* RANITIDINE 150 MG TABLET Take 1 tablet by mouth twice * TRIAMCINOLONE ACETONIDE 0.1 %* Apply 1 application to affect* Pa tient not taking: Reported on 08/16/2019 Problem List As Of Date 05/21/2020 Noted Resolved Depression [F32. 9] 08/15/2013 More... Insomnia [G47.00 ] 08/15/2013 09/16/2018 More... Asthma [J45.909] 08/15/2013 Tobacco use [Z72 .0] 09/26/2013 More... Vitamin D defici ency [E55.9] 01/30/2014 More... Fatigue [R53.83] 06/25/2014 11/27/2016 More... Sinusitis [J32.9 ] 06/25/2014 11/27/2016 More... MOUNIKA (obstructive sleep apnea) mild [G47.33] 10/09/2014 09/16/2018 More... Hypertension [I1 0] 10/09/2014 More... Hospital dischar ge follow-up [Z09] 10/09/2014 11/27/2016 More... Type 2 diabetes mellitus without complication (*02/19/2016 More... 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] 08/31/2019 Posterior tibial tendonitis [M76.829] 02/13/2020 Encounter Status:C losed by MARKUS LEARY KIANA on 06/03/20 NICOTINE/METAB, UR Collected: 05/20/2020 Status: F Source: M[facility] 5:00 PM [facility] REPOSITORY TYPE CODE TESTS RESULT OUT OF RANGE REFERENCE UNITS LAB U3OHCO ng/mL 3 OH >5000 COTININE,UR, QNT Result Comment: (NOTE) Nicotine is metabo lized to cotinine, and subsequently to 3-OH cotinine. Af ter cessation from chronic and heavy use of nicotine contai mary products, 4-EJ-oorbystv may persist for weeks. Passive exposure and active use of nicotine cannot be discrimi nated definitely. LAB UANBQT ng/mL Ur Anabasine Quant 7 Result Comment: (NOTE) Anabasine is a min or alkaloid in the tobacco plant and is a biomarker of activ e tobacco use. However, anabasine is not specific because i t can be detected in the urine of non-tobacco users. LAB UCOQT ng/mL Ur Cotinine Quant 1057 Result Comment: (NOTE) Cotinine is the ma kriss metabolite of nicotine and its presence can be de tected up to 2 weeks post exposure to nicotine containin g product. Passive exposure and active use of nicotine ca nnot be discriminated definitely. A cutoff of 100 ng/m L cotinine is frequently used for surgery qualification purp oses. LAB UNORQT ng/mL Ur Nornicotine Quant 33 Result Comment: (NOTE) Nornicotine may be present in tobacco products or may be from nicotine meta bolism. Passive exposure and active use of nicotine cannot be discriminated definitely. LAB UNIQT ng/mL Ur Nicotine Quant 704 Result Comment: (NOTE) Consistent with re cent use or exposure to a nicotine-containin g product. Although passive exposure and active use cannot be discriminated definitively, the urine nicotine concentra tion observed with active smokers is typically above 10 00 ng/mL. INTERPRETIVE INFOR MATION: Nicotine and Metabolites, Urine, Quantitative Methodology: Quant itative Liquid Chromatography-Tandem Mass Spectrometry Positive cutoff: Nicotine 2 ng/mL Cotinine 5 ng/mL 7-RG-[id number] 50 n g/mL Nornicotine 2 ng/mL Anabasine 3 ng/mL For medical purpos es only; not valid for forensic use. This test is desig krystian to evaluate recent use of nicotine-containin g products. Passive and active exposure cannot be discriminated d efinitively, although a cutoff of 100 ng/mL cotinine is freque ntly used for surgery qualification purposes. For smoking cessat ion programs or compliance testing, the absence of expected drug(s ) and/or drug metabolite(s) may indicate non-compliance, in appropriate timing of specimen collection relative to drug a dministration, poor drug absorption, diluted/adulterate d urine, or limitations of testing. The concentration valu e must be greater than or equal to the cutoff to be reported as pos itive. Anabasine is included as a biomarker of tobacco use, versu s nicotine replacement. Interpretive questions should be directed to the laboratory. Test developed and characteristics determined by [facility]. See Compliance Statement B: [facility] Performed by [facility], [address] [place] [address] [phone] [email or web address], Sheron Edwards MD, Lab. Director Performed By: #### UNICOT #### [facility] [address] [place] [address] [phone] HEMOGLOBIN A1C Collected: 05/20/2020 Status: F Source: TERELL MAXWELL 4:54 PM [facility] REPOSITORY TYPE CODE TESTS RESULT OUT OF REFERENCE UNITS RANGE LAB HGBA1C 4.3-5.6 % High Hemoglobin A1c 6.8 Result Comment: Citizen Of [place] Diabetes Association guidelines indicate that pat ients with HgbA1c in the range 5.7-6.4% are at increased risk for development of eldon betes, and intervention by lifestyle modification may be beneficial. HgbA1c g reater or equal to 6.5% is considered diagnostic of diabetes. LAB HBA0 mg/dL Est. 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 Performed By: #### HBA1C #### [facility] [address] [place], [place] [address] PROGRESS Observed: 05/20/2020 Status: COMPLETED Source: Selene POTTER 4:08 PM [facility] REPOSITORY HNO ID: [id number] Author: Jayjay Gibson Service: ? Author Type: Physi ronny Type: Progress Not es Filed: 05/27/2020 1 0:59 AM Note Text: Initial Podiatric Office Visit: Chief Complaint: T his 45 year old female who presents with chief complaint:b/l lowe r extremity pain L>R HPI Patient presents t o clinic for follow-up b/l foot pain L>R. Patient has pain today in b/l heels. She states the pain is present to the posterior plantar heel and e xtends up the arch. While the pain in her heels is painful, she still has pain along the medial instep of b/l foot L>R. Patient states the pain is 8/10. She has used orthotics which does not help. Patient has taken mobic and that has not helped. She has done therapy which she states did not help. She is interested in discussing surgery. Patient does have history of smoking. She stopped but restarted in February but assur es me that she is no longer smoking. PAIN EVALUATION 05/20/2020 1603 Pain Level: 8 Pain Location: F oot-Left Description: Sha rp;Stabbing;Throbbing Frequency: Navdeep nuous Intervention: Re laxation Hemoglobin A1C Date Value 07/27/2019 7.2 % 10/10/2018 6.5 % 07/18/2018 5.7 % 06/22/2016 6.7 05/12/2016 7.1 % 02/18/2016 9.1 % Hemoglobin A1C (PO CT) (%) Date Value 02/14/2019 5.8 PCP: Abbe sevilla MD PAST MEDICAL HISTO RY Diagnosis Date - Asthma - Depression - Hypertension 09/2014 - Hypertriglycerid emia - Insomnia - Irritable bowel syndrome with diarrhea 06/24/2016 - MOUNIKA (obstructive sleep apnea) mild 10/09/2014 - Pancreatitis 201 1 Recurrent. - Pseudocyst of pa ncreas 2010 aspirated - Tobacco use 08/30 - Type 2 diabetes mellitus without complication (HCC) 02/19/2016 - Vitamin D defici ency Current Outpatient Medications Medication Sig - PARoxetine (PAXI L) 40 mg tablet Take 1 tablet by mouth once daily. - hydrOXYzine HCl (ATARAX) 25 mg tablet Take 1 tablet by mouth every 6 hours as needed fo r Itching/Rash or Anxiety. - traZODone (DESYR EL) 50 mg tablet Take 1 tablet by mouth daily at bedtime. - lisinopril (ZEST RIL, PRINIVIL) 40 mg tablet Take 1 tablet by mouth once daily. - amLODIPine (NORV ASC) 10 mg tablet Take 1 tablet by mouth once daily. - metoprolol succi jason ER (TOPROL XL) 50 mg 24 hr tablet Take 1 tablet by mouth once daily. - albuterol sulfat e 90 mcg/actuation aepb EVERY 6 HOURS NEEDED PRN For Wheezing - fluticasone (BOB VENT) 110 mcg/actuation inhaler fluticasone Fluticasone 110 Mcg [Flovent ( Sp)] 1 PUFF inhalation TWICE A DAY July 25, 2019 Active 07-25-2019 [facility] ([id number]) - metFORMIN (GLUCO PHAGE) 500 mg tablet Take 500 mg by mouth twice daily. - ranitidine (ZANT AC) 150 mg tablet Take 1 tablet by mouth twice daily. - triamcinolone ac etonide (KENALOG) 0.1 % cream Apply 1 application to affected area thre e times daily. Apply sparingly to area for rash/itching. (Patient not chayo goode: Reported on 08/16/2019 ) No current facilit y-administered medications for this visit. ALLERGIES No Known Allergies PAST SURGICAL HIST ORY Procedure Laterali ty Date - CHOLECYSTECTOMY 02/2011 laparoscopic - COLONOSCOP W/ OR W/O RUST SPEC 07/18/2014 Colonoscopy - COLONOSCOP W/ OR W/O RUST SPEC 09/11/15 Colonoscopy - EGD EUS GEN ANES 07/21/2012 FNA pseudocyst - EGD W/O OR W/BRU SH/WASH 07/18/2014 EGD - PAST SURGICAL HI STORY OF 2004 dental extraction - PAST SURGICAL HI STORY OF 2011 drainage of pancr eatic cyst FAMILY HISTORY Problem Relation A ge of Onset - Osteoporosis Mot her - Cancer Mother uterine or ce rvix - Hypertension Fat her - Diabetes Paterna l Grandmother - Stroke Paternal Grandfather - Hypertension Pat ernal Grandfather - No Known Problem s Brother Social History Tobacco Use - Smoking status: Former Smoker Packs/day: 0.50 Years: 21.00 Pack years: 10.5 0 Types: Cigarette s Start date: 1996 - Smokeless tobacc o: Never Used - Tobacco comment: stopped smoking 2 weeks ago Substance Use Topi cs - Alcohol use: Yes Alcohol/week: 5. 0 standard drinks Types: 2 Mixed D rinks per week Frequency: Month ly or less Drinks per sessi on: 1 or 2 Binge frequency: Never Comment: in donnie very since 2016 - Drug use: No Comment: No drug s REVIEW OF SYSTEMS GENERAL: Negative for Malaise, significant weight loss, fever RESPIRATORY: Negat loren for cough, wheezing and shortness of breath CARDIOVASCULAR: Ne gative for chest pain, leg swelling and palpitations GI: Negative for a bdominal discomfort, blood in stools or black stools and change in bowel camargo bits : Negative for d ysuria, frequency and incontinence MUSCULOSKELETAL: N egative for joint pain or swelling, back pain, and muscle pain. SKIN: Negative for lesions, rash, and itching. HEMATOLOGY/LYMPHOL OGY Negative for prolonged bleeding, bruising easily, and swollen nodes. ENDOCRINE: Negativ e for cold or heat intolerance, polyuria, polydipsia and goiter. NEURO: negative Physical Exam: Constitutional: Pt is a well developed 45 year old female who is alert, oriented and coope rative Eyes: Following du ring examination. No redness or drainage. Respiratory: RR no rmal and nonlabored. Even breathing. No evidence of distress or shortn ess of breath. Psychology: Patien t is engaged during conversation. Normal affect and mood. Does not ap pear depressed or anxious during encounter. Vascular: Dorsalis pedis and posterior tibial pulses palpable as b/l Capillary Fill kendell e < 5 seconds to digits 1-5 b/l Skin temperature w arm to warm proximal to distal b/l Hair growth presen t to digits Neurological: intact light touch /epicritic sensation - tinel b/l intact protective sensation no significant ino rological deficits Dermatological: Nails 1-5 b/l appe ar normal. Webspaces clean and dry 1-4 b/l. Skin appears well hydrated and supple. good color, texture, turgor. No open lesions present. No callos ities present. Musculoskeletal/Or thopaedic: Patient has pain t o palpation of plantar calcaneal medial tubercle b/l and left navicular tub erosity Foot type is prona essence structurally AJ ROM is full wit h knee extended and flexed 1st MPJ is full wh en loaded and no pain or crepitus are noted with ROM. MTJ, STJ are full and free of pain and crepitus. +5/5 muscle streng th dorsiflexion, plantarflexion, inversion, eversion b/l ASSESSMENT: (M76.822) Posterio r tibial tendinitis of left lower extremity (primary encounter diagnosi s) (Q74.2) Accessory navicular bone of both feet (M72.2) Plantar fa sciitis, bilateral (E11.9) Type 2 eldon betes mellitus without complication, without long-term current use of ins ulin (HCC) PLAN: 1. History and phy sical examination performed. 2. Discussed left foot pain at navicular tuberosity. Patient has accessory navicula r. She has tried inserts, physical therapy and nsaids but still has pain . She is interested in surgery. Will check a1c and nicotine. Will ca ll with results. If patient desires surgery, kidner with possible tend on augmentation will be necessary. 3. Discussed b/l heel pain. Recommend stretching ,icing, nsaids and inserts. Discusse d injection. She elected to proceed with b/l heel injection. Patient elected to proceed with an injection to the b/l heel today. The risks, benefits, p otential complications, personnel present, and alternatives to th is were discsussed. Pt elected to proceed. all questions were answered. no guarantees were given. A timeout was performed. patient properly identifie d. procedure site marked. Under aseptic technique an injection was perf ormed to the heel using a mixture of ? cc of 0.5 % Marcaine plain, ? of kenalog and ? cc of dexamethazone Jayjay Thibodeaux DPM Podiatry [address] [facility] [address] Dept: [phone] Dept Fax: PROGRESS Observed: 05/20/2020 Status: COMPLETED Source: Selene ANGELAND 4:01 PM [facility] REPOSITORY HNO ID: [id number] Author: Rubi ling Ma Service: ? Author Type: ? Type: Progress Not es Filed: 05/27/2020 1 0:59 AM Note Text: AMB ROOMING INTAKE FLOWSHEET DATA Risk Screening Do you have concer ns about personal safety or safety in the home?: No Pain Pain Level: 8 Pain Location: Dimple t-Left Description: Sharp , Stabbing, Throbbing Frequency: Continu ous Intervention: Rela xation Patient presents w ith: Left Foot - Establ ished Patient, Pain, Discuss surgery Travel Screening Question Respon se In the last month , have you been in contact with someone who was confirmed or suspe cted to have Coronavirus / COVID-19? No / Unsure Do you have any o f the following symptoms? None of these Have you traveled internationally in the last month? No Travel History T ravel since 04/19/20 No documented tr dionne since 04/19/20 Patient states jennifer n has worsened since REGINO. CNOV Observed: 05/20/2020 Status: COMPLETED Source: Selene POTTER 4:00 PM [facility]INIC [facility] REPOSITORY Office Visit (PODIWS) JOSEPH OSMAN ([id number]) 1975 F NFR Date Time Provider Department 05/20/20 4:00 PM JAYJAY THIBODEAUXIWS During your vi sit today, we recorded the following information about you: Rubi Nickerson Ma 10:59 AM Signed AMB ROOMING INTAKE FLOWSHEET DATA Risk Screening Do you have concer ns about personal safety or safety in the home?: No Pain Pain Level: 8 Pain Location: Dimple t-Left Description: Sharp , Stabbing, Throbbing Frequency: Continu ous Intervention: Rela xation Patient presents w ith: Left Foot - Establ ished Patient, Pain, Discuss surgery Travel Screening Question Respon se In the last month , have you been in contact with someone who was confirmed or suspected to have Coronavirus / COVID-19? No / Unsure Do you have any o f the following symptoms? None of these Have you traveled internationally in the last month? No Travel History T ravel since 04/19/20 No documented tr dionne since 04/19/20 Patient states jennifer n has worsened since REGINO. Jayjay Morelia, DPM 05/27/2020 10:59 AM Signed Initial Podiatric Office Visit: Chief Complaint: T his 45 year old female who presents with chief complaint:b/l lower extremity pa in L>R HPI Patient presents t o clinic for follow-up b/l foot pain L>R. Patient has pain today in b/l heels . She states the pain is present to the posterior plantar heel and extends u p the arch. While the pain in her heels is painful, she still has pain clarisa ng the medial instep of b/l foot L>R. Patient states the pain is 8/10. She has used orthotics which does not help. Patient has taken mobic and that has not helped. She has done therapy which she states did not help. She is inter ested in discussing surgery. Patient does have history of smoking. She stop ped but restarted in February but assures me that she is no longer smoking. PAIN EVALUATION 05/20/2020 1603 Pain Level: 8 Pain Location: F oot-Left Description: Sha rp;Stabbing;Throbbing Frequency: Navdeep nuous Intervention: Re laxation Hemoglobin A1C Date Value 07/27/2019 7.2 % 10/10/2018 6.5 % 07/18/2018 5.7 % 06/22/2016 6.7 05/12/2016 7.1 % 02/18/2016 9.1 % Hemoglobin A1C (PO CT) (%) Date Value 02/14/2019 5.8 PCP: Abbe sevilla MD PAST MEDICAL HISTO RY Diagnosis Date - Asthma - Depression - Hypertension 09/2014 - Hypertriglycerid emia - Insomnia - Irritable bowel syndrome with diarrhea 06/24/2016 - MOUNIKA (obstructive sleep apnea) mild 10/09/2014 - Pancreatitis 201 1 Recurrent. - Pseudocyst of pa ncreas 2010 aspirated - Tobacco use 08/30 - Type 2 diabetes mellitus without complication (HCC) 02/19/2016 - Vitamin D defici ency Current Outpatient Medications Medication Sig - PARoxetine (PAXI L) 40 mg tablet Take 1 tablet by mouth once daily. - hydrOXYzine HCl (ATARAX) 25 mg tablet Take 1 tablet by mouth every 6 hours as needed for Itching /Rash or Anxiety. - traZODone (DESYR EL) 50 mg tablet Take 1 tablet by mouth daily at bedtime. - lisinopril (ZEST RIL, PRINIVIL) 40 mg tablet Take 1 tablet by mouth once daily. - amLODIPine (NORV ASC) 10 mg tablet Take 1 tablet by mouth once daily. - metoprolol succi jason ER (TOPROL XL) 50 mg 24 hr tablet Take 1 tablet by mouth once daily. - albuterol sulfat e 90 mcg/actuation aepb EVERY 6 HOURS NEEDED PRN For Wheezing - fluticasone (BOB VENT) 110 mcg/actuation inhaler fluticasone Fluticasone 110 Mcg [Flovent (Sp)] 1 PUFF inhalation TWICE A DAY July 25, 2019 Active 07-25-2019 [facility] ([id number]) - metFORMIN (GLUCO PHAGE) 500 mg tablet Take 500 mg by mouth twice daily. - ranitidine (ZANT AC) 150 mg tablet Take 1 tablet by mouth twice daily. - triamcinolone ac etonide (KENALOG) 0.1 % cream Apply 1 application to affected area three times d aily. Apply sparingly to area for rash/itching. (Patient not taking: Reported o n 08/16/2019 ) No current facilit y-administered medications for this visit. ALLERGIES No Known Allergies PAST SURGICAL HIST ORY Procedure Laterali ty Date - CHOLECYSTECTOMY 02/2011 laparoscopic - COLONOSCOP W/ OR W/O RUST SPEC 07/18/2014 Colonoscopy - COLONOSCOP W/ OR W/O RUST SPEC 09/11/15 Colonoscopy - EGD EUS GEN ANES 07/21/2012 FNA pseudocyst - EGD W/O OR W/BRU SH/WASH 07/18/2014 EGD - PAST SURGICAL HI STORY OF 2004 dental extraction - PAST SURGICAL HI STORY OF 2011 drainage of pancr eatic cyst FAMILY HISTORY Problem Relation A ge of Onset - Osteoporosis Mot her - Cancer Mother uterine or ce rvix - Hypertension Fat her - Diabetes Paterna l Grandmother - Stroke Paternal Grandfather - Hypertension Pat ernal Grandfather - No Known Problem s Brother Social History Tobacco Use - Smoking status: Former Smoker Packs/day: 0.50 Years: 21.00 Pack years: 10.5 0 Types: Cigarette s Start date: 1996 - Smokeless tobacc o: Never Used - Tobacco comment: stopped smoking 2 weeks ago Substance Use Topi cs - Alcohol use: Yes Alcohol/week: 5. 0 standard drinks Types: 2 Mixed D rinks per week Frequency: Month ly or less Drinks per sessi on: 1 or 2 Binge frequency: Never Comment: in donnie very since 2017 - Drug use: No Comment: No drug s REVIEW OF SYSTEMS GENERAL: Negative for Malaise, significant weight loss, fever RESPIRATORY: Negat loren for cough, wheezing and shortness of breath CARDIOVASCULAR: Ne gative for chest pain, leg swelling and palpitations GI: Negative for a bdominal discomfort, blood in stools or black stools and change in bowel camargo bits : Negative for d ysuria, frequency and incontinence MUSCULOSKELETAL: N egative for joint pain or swelling, back pain, and muscle pain. SKIN: Negative for lesions, rash, and itching. HEMATOLOGY/LYMPHOL OGY Negative for prolonged bleeding, bruising easily, and swollen nodes. ENDOCRINE: Negativ e for cold or heat intolerance, polyuria, polydipsia and goiter. NEURO: negative Physical Exam: Constitutional: Pt is a well developed 45 year old female who is alert, oriented and coope rative Eyes: Following du ring examination. No redness or drainage. Respiratory: RR no rmal and nonlabored. Even breathing. No evidence of distress or shortness of br eath. Psychology: Patien t is engaged during conversation. Normal affect and mood. Does not appear de pressed or anxious during encounter. Vascular: Dorsalis pedis and posterior tibial pulses palpable as b/l Capillary Fill kendell e < 5 seconds to digits 1-5 b/l Skin temperature w arm to warm proximal to distal b/l Hair growth presen t to digits Neurological: intact light touch /epicritic sensation - tinel b/l intact protective sensation no significant ino rological deficits Dermatological: Nails 1-5 b/l appe ar normal. Webspaces clean and dry 1-4 b/l. Skin appears well hydrated and suppl e. good color, texture, turgor. No open lesions present. No callosities presen t. Musculoskeletal/Or thopaedic: Patient has pain t o palpation of plantar calcaneal medial tubercle b/l and left navicular tuberosi ty Foot type is prona essence structurally AJ ROM is full wit h knee extended and flexed 1st MPJ is full wh en loaded and no pain or crepitus are noted with ROM. MTJ, STJ are full and free of pain and crepitus. 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 History and phy sical examination performed. 2. Discussed left foot pain at navicular tuberosity. Patient has accessory navicular. She camargo s tried inserts, physical therapy and nsaids but still has pain. She is inte rested in surgery. Will check a1c and nicotine. Will call with results. If patient desires surgery, kidner with possible tendon augmentation will be necessary. 3. Discussed b/l heel pain. Recommend stretching ,icing, nsaids and inserts. Discussed injectio n. She elected to proceed with b/l heel injection. Patient elected to proceed with an injection to the b/l heel today. The risks, benefits, potentia l complications, personnel present, and alternatives to this were discsussed. P t elected to proceed. all questions were answered. no guarantees were gi devon. A timeout was performed. patient properly identified. procedure site rock guzman. Under aseptic technique an injection was performed to the heel using a m ixture of ? cc of 0.5 % Marcaine plain, ? of kenalog and ? cc of dexamethazone Jayjay Thibodeaux DPM Podiatry [address] [facility] [address] Dept: [phone] Dept Fax: Rubi Nickerson Ma 4:40 PM Signed STEROID INJECTION You have been inje cted with a corticosteroid and local anesthesia today. This should provide rel ief of symptoms for the next 8 hours or so. After this time frame you will lik rio experience an increase in pain symptoms again until the effects of the isiah roid start to work, which should occur within 24-48 hours. Approximately 2% o f individuals may experience a post injection flare or severe worsening of sympt oms following injection. If this occurs ice the area and take Tylenol or Al belgica for pain. In some very rare instances skin depigmentation and joint infection may occur. Joint infection is a concern if you experience any of the following: ? pain for more th an 48 hours after the injection ? pain develops mo re than 2 days after the injection ? the area becomes red, hot or swollen ? you develop a fe luis antonio following the injection Corticosteroid inj ections can also rarely interfere with the healing process and weaken tendons , sometimes causing tendons to rupture. Repeated injections of steroids can al so damage joint cartilage. For these reasons, there are limits to how many times and how frequently corticosteroid injections can be used in the same a amanda. If anything seems unusual or out of the ordinary please contact our office as soon as possible f or further instruction. Referring Provider : JAYJAY THIBODEAUX [[id number]] Allergies As of Da te: 05/20/2020 (No Known Allergie s) Date Reviewed: Reviewed by: Genet Nickerson Ma - Fully Assessed Reason for Visit: Established Jennifer ent [175] Pain [78] Discuss surgery [Other] Primary Visit Diag nosis:Posterior tibial tendinitis of left lower extremity [M76.822] Other Visit Diag noses: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] Plantar fasciitis, bilateral [M72.2] Type 2 diabetes mellitus without complication, without long-term current use of insulin (HCC) [E11.9] Order(s):[] bupivacaine (PF) 0.5 % (5 mg/mL) 2.5 mg injectionDisp: Rfl: [] dexamethasone sodium phosphate 2 mg injection (DECADRON )Disp: Rfl: [] triamcinolone acetonide 5 mg injection (KENALOG 10)Disp: Rfl: HGB A1C [ [id number]] Order #: [id number] FUTURE NICOTINE AND METAB, UR [SQUNICOT] Order #: [id number] FUTURE [] bupivacaine (PF) 0.5 % (5 mg/mL) 2.5 mg injectionDisp: Rfl: [] dexamethasone sodium phosphate 2 mg injection (DECADRON )Disp: Rfl: [] triamcinolone acetonide 5 mg injection (KENALOG 10)Disp: Rfl: Prescriptions as o f 05/20/2020 Sig: PAROXETINE 40 MG TABLET Take 1 tablet by mouth once d* HYDROXYZINE HC L 25 MG TABLET Take 1 tablet by mouth every * TRAZODONE 50 M G TABLET Take 1 tablet by mouth daily * LISINOPRIL 40 MG TABLET Take 1 tablet by mouth once d* AMLODIPINE 10 MG TABLET Take 1 tablet by mouth once d* METOPROLOL SUC CINATE ER 50 MG* Take 1 tablet by mouth once d* ALBUTEROL SULF ATE 90 MCG/ACTU* EVERY 6 HOURS NEEDED PRN F* FLUTICASONE [place] OPIONATE 110 MC* fluticasone Fluticasone 110 M* METFORMIN 500 MG TABLET Take 500 mg by mouth twice da* RANITIDINE 150 MG TABLET Take 1 tablet by mouth twice * TRIAMCINOLONE ACETONIDE 0.1 %* Apply 1 application to affect* Pa tient not taking: Reported on 08/16/2019 Problem List As Of Date 05/20/2020 Noted Resolved Depression [F32. 9] 08/15/2013 More... Insomnia [G47.00 ] 08/15/2013 09/16/2018 More... Asthma [J45.909] 08/15/2013 Tobacco use [Z72 .0] 09/26/2013 More... Vitamin D defici ency [E55.9] 01/30/2014 More... Fatigue [R53.83] 06/25/2014 11/27/2016 More... Sinusitis [J32.9 ] 06/25/2014 11/27/2016 More... MOUNIKA (obstructive sleep apnea) mild [G47.33] 10/09/2014 09/16/2018 More... Hypertension [I1 0] 10/09/2014 More... Hospital dischar ge follow-up [Z09] 10/09/2014 11/27/2016 More... Type 2 diabetes mellitus without complication (*02/19/2016 More... 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] 08/31/2019 Posterior tibial tendonitis [M76.829] 02/13/2020 Notes for Staf f Call patient w ith results Other instruct ions from your clinician: STEROID INJECT ION You have been injected with a corticosteroid and local anesthesia today. This should pr ovide relief of symptoms for the next 8 hours or so. After this time fram e you will likely experience an increase in pain symptoms again until th e effects of the steroid start to work, which should occur within 24-48 h ours. Approximately 2% of individuals may experience a post injection flare or severe worseni ng of symptoms following injection. If this occurs ice the area and take Tylenol or Aleve for pain. In some very r are instances skin depigmentation and joint infection may occur. Joint i nfection is a concern if you experience any of the following: ? pain for mor e than 48 hours after the injection ? pain develop s more than 2 days after the injection ? the area bec omes red, hot or swollen ? you develop a fever following the injection Corticosteroid injections can also rarely interfere with the healing process and we aken tendons, sometimes causing tendons to rupture. Repeated injections of steroids can also damage joint cartilage. For these reasons, there are limi ts to how many times and how frequently corticosteroid injections can be used in the same area. If anything se ems unusual or out of the ordinary please contact our office as soon as pos arslan for further instruction. Prescriptions orde red this encounter Disp Refills Start End BUPIVACAINE (PF) 0.5 % (5 MG/ML) INJ* 05/20/2020 05/21/2020 Route: IAtc DEXAMETHASONE SO DIUM PHOSPHATE 4 MG/* 05/20/2020 05/21/2020 Route: IAtc TRIAMCINOLONE AC ETONIDE 10 MG/ML JARETH* 05/20/2020 05/21/2020 Route: IAtc BUPIVACAINE (PF) 0.5 % (5 MG/ML) INJ* 05/27/2020 05/27/2020 Route: IAtc DEXAMETHASONE SO DIUM PHOSPHATE 4 MG/* 05/27/2020 05/27/2020 Route: IAtc TRIAMCINOLONE AC ETONIDE 10 MG/ML JARETH* 05/27/2020 05/27/2020 Route: [facility] Follow Up: Call patient with results Follow-up and Disp osition History Recorded Encounter Status:C losed by JAYJAY THIBODEAUX DPM on 05/27/20 CNPN Observed: 02/13/2020 Status: COMPLETED Source: [facility] [place] 12:00 AM CLINIC MAIN [facility] REPOSITORY Telephone (PODIWS) JOSEPH OSMAN ([id number]) 1975 F NFR Date Time Provider Department 02/13/20 JAYJAY THIBODEAUX PODIWS During your vi sit today, we recorded the following information about you: Jayjay Thibodeaux DPM 02/13/2020 10:26 PM Signed February 13, 2020 Time of call: 3:23 Patient is contact ed via phone to review mri and to discuss options Chief Complaint: T his 44 year old who presents for follow up:b/l foot and ankle pain, L>R Patient continues to complain of pain to b/l foot and ankle pain L>R. She states her foot an d ankle pain causes her pain and she has very difficult time walking. She has tried inserts, nsaids but continues to have pain. Patient is interested in surg ical intervention. Patient has not smoked in over one month. Hemoglobin A1C Date Value Ref Ran ge Status 07/27/2019 7.2 (H) 4.3 - 5.6 % Final Comment: Citizen Of [place] Diab[employer] s Association guidelines indicate that patients with HgbA1c in the range 5.7-6.4 % are at increased risk for development of diabetes, and intervention by li eliotyle modification may be beneficial. HgbA1c greater or equal to 6.5% is c onsidered diagnostic of diabetes. PCP: Abbe sevilla MD PAST MEDICAL HISTO RY Diagnosis Date - Asthma - Depression - Hypertension 09/2014 - Hypertriglycerid emia - Insomnia - Irritable bowel syndrome with diarrhea 06/24/2016 - MOUNIKA (obstructive sleep apnea) mild 10/09/2014 - Pancreatitis 201 1 Recurrent. - Pseudocyst of pa ncreas 2010 aspirated - Tobacco use 08/30 - Type 2 diabetes mellitus without complication (HCC) 02/19/2016 - Vitamin D defici ency Current Outpatient Medications Medication Sig - albuterol sulfat e 90 mcg/actuation aepb EVERY 6 HOURS NEEDED PRN For Wheezing - fluticasone (BOB VENT) 110 mcg/actuation inhaler fluticasone Fluticasone 110 Mcg [Flovent (Sp)] 1 PUFF inhalation TWICE A DAY July 25, 2019 Active 07-25-2019 [facility] ([id number]) - metFORMIN (GLUCO PHAGE) 500 mg tablet Take 500 mg by mouth twice daily. - PARoxetine (PAXI L) 40 mg tablet Take 1 tablet by mouth once daily. - hydrOXYzine HCl (ATARAX) 25 mg tablet Take 1 tablet by mouth every 6 hours as needed for Itching /Rash or Anxiety. - ranitidine (ZANT AC) 150 mg tablet Take 1 tablet by mouth twice daily. - traZODone (DESYR EL) 50 mg tablet Take 1 tablet by mouth daily at bedtime. - lisinopril (ZEST RIL, PRINIVIL) 40 mg tablet Take 1 tablet by mouth once daily. - amLODIPine (NORV ASC) 10 mg tablet Take 1 tablet by mouth once daily. - metoprolol succi jason ER (TOPROL XL) 50 mg 24 hr tablet Take 1 tablet by mouth once daily. - triamcinolone ac etonide (KENALOG) 0.1 % cream Apply 1 application to affected area three times d aily. Apply sparingly to area for rash/itching. (Patient not taking: Reported o n 08/16/2019 ) No current facilit y-administered medications for this visit. ALLERGIES No Known Allergies PAST SURGICAL HIST ORY Procedure Laterali ty Date - CHOLECYSTECTOMY 02/2011 laparoscopic - COLONOSCOP W/ OR W/O RUST SPEC 07/18/2014 Colonoscopy - COLONOSCOP W/ OR W/O RUST SPEC 09/11/15 Colonoscopy - EGD EUS GEN ANES 07/21/2012 FNA pseudocyst - EGD W/O OR W/BRU SH/WASH 07/18/2014 EGD - PAST SURGICAL HI STORY OF 2004 dental extraction - PAST SURGICAL HI STORY OF 2012 drainage of pancr eatic cyst MRI of left ankle reviewed. There is accessory navicular with posterior tibial tendon thickening. Mild thickening of plantar fascia. ASSESSMENT: (M76.822) Posterio r tibial tendinitis of left lower extremity PLAN: Phone call made to day to discuss patient pain. She continues to have pain to left ankle, primar juliane along posterior tibial tendon. She has tried inserts, nsaids, boot immob ilization and therapy. Despite conservatie care, she continues to have pain. Discussed surgical options. Surgical options could include emmanuel butterfield posterior tibial tendon debridement with possible tendon transfer. She wou ld require nwb for extended duration, possibly up to 3 months. I will discuss laura butterfield nursing staff to coordinate patient to come in to sign paper work and ace ordaz make arrangements once elective surgery can be scheduled. Continue with stre tching for left heel pain. Jayjay Thibodeaux DPM Allergies As of Da te: 02/13/2020 (No Known Allergie s) Date Reviewed: 12/2019 Reviewed by: Margoth Hammond Ma - Fully Assessed Reason for Visit: Appointment [186 ] Visit Diagnosis:Po sterior tibial tendinitis of left lower extremity [M76.822] Prescriptions as o f 02/13/2020 Sig: ALBUTEROL SULF ATE 90 MCG/ACTU* EVERY 6 HOURS NEEDED PRN F* FLUTICASONE NY OPIONATE 110 MC* fluticasone Fluticasone 110 M* METFORMIN 500 MG TABLET Take 500 mg by mouth twice da* PAROXETINE 40 MG TABLET Take 1 tablet by mouth once d* HYDROXYZINE HC L 25 MG TABLET Take 1 tablet by mouth every * RANITIDINE 150 MG TABLET Take 1 tablet by mouth twice * TRAZODONE 50 M G TABLET Take 1 tablet by mouth daily * LISINOPRIL 40 MG TABLET Take 1 tablet by mouth once d* AMLODIPINE 10 MG TABLET Take 1 tablet by mouth once d* METOPROLOL SUC CINATE ER 50 MG* Take 1 tablet by mouth once d* TRIAMCINOLONE ACETONIDE 0.1 %* Apply 1 application to affect* Ellie rizo not taking: Reported on 08/16/2019 Problem List As Of Date 02/13/2020 Noted Resolved Depression [F32. 9] 08/15/2013 More... Insomnia [G47.00 ] 08/15/2013 09/16/2018 More... Asthma [J45.909] 08/15/2013 Tobacco use [Z72 .0] 09/26/2013 More... Vitamin D defici ency [E55.9] 01/30/2014 More... Fatigue [R53.83] 06/25/2014 11/27/2016 More... Sinusitis [J32.9 ] 06/25/2014 11/27/2016 More... MOUNIKA (obstructive sleep apnea) mild [G47.33] 10/09/2014 09/16/2018 More... Hypertension [I1 0] 10/09/2014 More... Hospital dischar ge follow-up [Z09] 10/09/2014 11/27/2016 More... Type 2 diabetes mellitus without complication (*02/19/2016 More... 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 Need to ask if patient is willing to have Dr.Testrake de la rosa all her instead of coming into office. Rubi Nickerson Ma 11:29 AM Signed Patient agreeable to phone call. Allergies As of Da te: 02/12/2020 (No Known Allergie s) Date Reviewed: 12/2019 Reviewed by: Margoth Hammond Ma - Fully Assessed Reason for Visit: Appointment [186 ] Prescriptions as o f 02/12/2020 Sig: ALBUTEROL SULF ATE 90 MCG/ACTU* EVERY 6 HOURS NEEDED PRN F* FLUTICASONE NY OPIONATE 110 MC* fluticasone Fluticasone 110 M* METFORMIN 500 MG TABLET Take 500 mg by mouth twice da* PAROXETINE 40 MG TABLET Take 1 tablet by mouth once d* HYDROXYZINE HC L 25 MG TABLET Take 1 tablet by mouth every * RANITIDINE 150 MG TABLET Take 1 tablet by mouth twice * TRAZODONE 50 M G TABLET Take 1 tablet by mouth daily * LISINOPRIL 40 MG TABLET Take 1 tablet by mouth once d* AMLODIPINE 10 MG TABLET Take 1 tablet by mouth once d* METOPROLOL SUC CINATE ER 50 MG* Take 1 tablet by mouth once d* TRIAMCINOLONE ACETONIDE 0.1 %* Apply 1 application to affect* Pa tient not taking: Reported on 08/16/2019 Problem List As Of Date 02/12/2020 Noted Resolved Depression [F32. 9] 08/15/2013 More... Insomnia [G47.00 ] 08/15/2013 09/16/2018 More... Asthma [J45.909] 08/15/2013 Tobacco use [Z72 .0] 09/26/2013 More... Vitamin D defici ency [E55.9] 01/30/2014 More... Fatigue [R53.83] 06/25/2014 11/27/2016 More... Sinusitis [J32.9 ] 06/25/2014 11/27/2016 More... MOUNIKA (obstructive sleep apnea) mild [G47.33] 10/09/2014 09/16/2018 More... Hypertension [I1 0] 10/09/2014 More... Hospital dischar ge follow-up [Z09] 10/09/2014 11/27/2016 More... Type 2 diabetes mellitus without complication (*02/19/2016 More... 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 States the Meloxicam is not helping. Wants to know if she can have something for the pain? Is scheduled for a follow up appointment next Monday 02/12 to discuss MR I results. Jayjay Thibodeaux DPM 02/06/2020 11:24 AM Signed I would either ezio e the mobic or ibuprofen or tylenol MARYCARMEN Candelario Ma 11:28 AM Signed Left VM for patirobert t to contact office. Anusha Hernandez Ma 11:40 AM Signed Patient returned c all and notified of provider's response. Patient verbalized understanding. Allergies As of Da te: 02/06/2020 (No Known Allergie s) Date Reviewed: 12/2019 Reviewed by: Margoth Hammond Ma - Fully Assessed Reason for Visit: Requesting pain medication [Other] Prescriptions as o f 02/06/2020 Sig: ALBUTEROL SULF ATE 90 MCG/ACTU* EVERY 6 HOURS NEEDED PRN F* FLUTICASONE NY OPIONATE 110 MC* fluticasone Fluticasone 110 M* METFORMIN 500 MG TABLET Take 500 mg by mouth twice da* PAROXETINE 40 MG TABLET Take 1 tablet by mouth once d* HYDROXYZINE HC L 25 MG TABLET Take 1 tablet by mouth every * RANITIDINE 150 MG TABLET Take 1 tablet by mouth twice * TRAZODONE 50 M G TABLET Take 1 tablet by mouth daily * LISINOPRIL 40 MG TABLET Take 1 tablet by mouth once d* AMLODIPINE 10 MG TABLET Take 1 tablet by mouth once d* METOPROLOL SUC CINATE ER 50 MG* Take 1 tablet by mouth once d* TRIAMCINOLONE ACETONIDE 0.1 %* Apply 1 application to affect* Pa tient not taking: Reported on 08/16/2019 Problem List As Of Date 02/06/2020 Noted Resolved Depression [F32. 9] 08/15/2013 More... Insomnia [G47.00 ] 08/15/2013 09/16/2018 More... Asthma [J45.909] 08/15/2013 Tobacco use [Z72 .0] 09/26/2013 More... Vitamin D defici ency [E55.9] 01/30/2014 More... Fatigue [R53.83] 06/25/2014 11/27/2016 More... Sinusitis [J32.9 ] 06/25/2014 11/27/2016 More... MOUNIKA (obstructive sleep apnea) mild [G47.33] 10/09/2014 09/16/2018 More... Hypertension [I1 0] 10/09/2014 More... Hospital dischar ge follow-up [Z09] 10/09/2014 11/27/2016 More... Type 2 diabetes mellitus without complication (*02/19/2016 More... 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] 08/31/2019 Encounter Status:C losed by ANUSHA HERNANDEZ MA on 02/06/20 MRI ANKLE WO IVCON Observed: 02/05/2020 Status: F Source: [facility] 10:27 AM [facility] REPOSITORY * * *Final Report* * * DATE OF EXAM: Feb 05 2020 10:27AM [facility] 0163 - MRI ANKLE WO IVCON LT / PROCEDURE REASON: Pain of joint of left ankle and foot * * * * Physician Interpretation * * * * HISTORY: Pain of joint of left ankle and foot TECHNOLOGIST PROVI DED HISTORY (if applicable): TECHNIQUE: MRI ANK LE WO IVCON LT RESULT: MRI of the LEFT ankle is submitted. Comparison is to radiographs from 08/16/2019. An accessory navic ular is present, as seen radiographically. The signal intensity at the s ynchondrosis is similar to cartilage, without fluid. No subjacent cysts or other osseous signal abnormality to suggest motion. There is mildly i ncreased signal in the posterior tibialis tendon consistent with te ndinosis. No tear. The flexor digitor um longus and flexor hallucis longus are normal. The Achilles is normal . Lateral plantar flexors and dorsiflexors are normal. Anterior and poste rolateral ankle ligaments are normal as is the calcaneofibular li gament. Deltoid and spring ligaments are intact. There is mild ankl e and posterior subtalar joint distention with mild distention of the posterior ankle recess. No other significant joint effusion or abnorm al fluid collection. No definite articu lar cartilage abnormality. A small plantar ca lcaneal spur is present. There is mild edema about the proximal aspect of the central band of the plantar fascia without definite thickenin g. Muscle bulk and si gnal intensity are normal. No marrow replacin g lesion or fracture. IMPRESSION: 1. ACCESSORY DIEUDONNE CULAR WITHOUT FINDINGS SUGGESTING PAINFUL ACCESSORY NAVICULAR SYNDROME . 2. MILD POSTERIOR TIBIALIS TENDINOSIS 3. MILD FINDINGS OF PLANTAR FASCIITIS. 4. NO NSPECIFIC SMALL ANKLE EFFUSION. Sucker Machine Operator: PAM Transcribe Date/Ti me: Feb 05 2020 10:53A Dictated by : JENNY STAPLETON MD This examination w as interpreted and the report reviewed and electronically sig krystian by: REINA STAPLETON MD on Feb 05 2020 11:00AM EST [id number] IACN PROGRESS Observed: 02/05/2020 Status: COMPLETED Source: [facility] 10:11 AM [facility] REPOSITORY HNO ID: [id number] Author: Ainsley (Rt) Mojgan Andrea Service: ? Author Type: Techn ician Type: Progress Not es Filed: 02/05/2020 10 :12 AM Note Text: Radiology Servi ce Progress Note PATIENT NAME: Joseph Osman DATE OF SERVICE: February 05, 2020 TIME: 10:12 AM PATIENT IDENTITY V ERIFICATION COMPLETED USING TWO (2) IDENTIFIERS: Name and Date of confirmed by patient verbally. PATIENT GENDER URSZULA A: Female. status: : No stat us: NO. PATIENT RELEVANT I MPLANT DATA REVIEWED: Yes RADIOLOGY DEPARTME NT: MR; Exam(s) Completed: Lower MSK: Ankle/Hind Foot, left PERIPHERAL IV DATA : Not applicable SIGNED BY: RT Debbie February 05, 2020 10: 12 AM CNPN Observed: 02/05/2020 Status: COMPLETED [facility] REPOSITORY Telephone (PODIWS) JOSEPH OSMAN ([id number]) 1975 F NFR Date Time Provider Department 02/05/20 JAYJAY THIBODEAUX During your vi sit today, we recorded the following information about you: Rubi Nickerson Ma 2:54 PM Signed ----- Message from Jayjay Thibodeaux sent at 02/05/2020 2:52 PM EDT ----- Please call familia pena to inform her to continue with smoking cessation. Will review at f/u MARYCARMEN Candelario Ma 2:56 PM Signed Left Vm for familia pena to contact office. Patient needs to be schedule for F/U to Discuss MRI. Anusha Hernandez Ma 3:46 PM Signed Patient returned c all. Appointment scheduled for follow up to discuss MRI on 02/13/20. Allergies As of Da te: 02/05/2020 (No Known Allergie s) Date Reviewed: 12/2019 Reviewed by: Margoth Hammond Ma - Fully Assessed Reason for Visit: Results [95] Prescriptions as o f 02/05/2020 Sig: ALBUTEROL SULF ATE 90 MCG/ACTU* EVERY 6 HOURS NEEDED PRN F* FLUTICASONE NY OPIONATE 110 MC* fluticasone Fluticasone 110 M* METFORMIN 500 MG TABLET Take 500 mg by mouth twice da* PAROXETINE 40 MG TABLET Take 1 tablet by mouth once d* HYDROXYZINE HC L 25 MG TABLET Take 1 tablet by mouth every * RANITIDINE 150 MG TABLET Take 1 tablet by mouth twice * TRAZODONE 50 M G TABLET Take 1 tablet by mouth daily * LISINOPRIL 40 MG TABLET Take 1 tablet by mouth once d* AMLODIPINE 10 MG TABLET Take 1 tablet by mouth once d* METOPROLOL SUC CINATE ER 50 MG* Take 1 tablet by mouth once d* TRIAMCINOLONE ACETONIDE 0.1 %* Apply 1 application to affect* Pa tient not taking: Reported on 08/16/2019 Problem List As Of Date 02/05/2020 Noted Resolved Depression [F32. 9] 08/15/2013 More... Insomnia [G47.00 ] 08/15/2013 09/16/2018 More... Asthma [J45.909] 08/15/2013 Tobacco use [Z72 .0] 09/26/2013 More... Vitamin D defici ency [E55.9] 01/30/2014 More... Fatigue [R53.83] 06/25/2014 11/27/2016 More... Sinusitis [J32.9 ] 06/25/2014 11/27/2016 More... MOUNIKA (obstructive sleep apnea) mild [G47.33] 10/09/2014 09/16/2018 More... Hypertension [I1 0] 10/09/2014 More... Hospital dischar ge follow-up [Z09] 10/09/2014 11/27/2016 More... Type 2 diabetes mellitus without complication (*02/19/2016 More... 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 REPOSITORY HNO ID: [id number] Author: Rashawn Dillard Service: ? Author Type: Physi ronny Type: Progress Not es Filed: 01/29/2020 5 :29 PM Note Text: Patient presents w ith: Sinus Problem: sin us pressure and drainage, cough, bilateral ear pain and sore throat x 2 da ys HPI: Feeling sick for 3 days. She was seen her for URI 01/17/20 and improved after a couple day s. Positive symptoms: Cough, Sore throat, Earache, Sinus pressure, Nasal Congestion, Rhinor juliette, Post nasal drainage, hot and cold without fevers, Negative symptoms: Fever, OTC: Mucinex, Suda fed, lozenges. Albuterol helps for a while. Quit smoking 1 wee k ago. 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 PAST MEDICAL HISTO RY Diagnosis Date - Asthma - Depression - Hypertension 09/2014 - Hypertriglycerid emia - Insomnia - Irritable bowel syndrome with diarrhea 06/24/2016 - MOUNIKA (obstructive sleep apnea) mild 10/09/2014 - Pancreatitis 201 1 Recurrent. - Pseudocyst of pa ncreas 2010 aspirated - Tobacco use 08/30 - Type 2 diabetes mellitus without complication (HCC) 02/19/2016 - Vitamin D defici ency MEDICATIONS: Current Outpatient Medications Medication Sig - albuterol sulfat e 90 mcg/actuation aepb EVERY 6 HOURS NEEDED PRN For Wheezing - fluticasone (BOB VENT) 110 mcg/actuation inhaler fluticasone Fluticasone 110 Mcg [Flovent ( Sp)] 1 PUFF inhalation TWICE A DAY July 25, 2019 Active 07-25-2019 [facility] ([id number]) - metFORMIN (GLUCO PHAGE) 500 mg tablet Take 500 mg by mouth twice daily. - PARoxetine (PAXI L) 40 mg tablet Take 1 tablet by mouth once daily. - hydrOXYzine HCl (ATARAX) 25 mg tablet Take 1 tablet by mouth every 6 hours as needed fo r Itching/Rash or Anxiety. - ranitidine (ZANT AC) 150 mg tablet Take 1 tablet by mouth twice daily. - traZODone (DESYR EL) 50 mg tablet Take 1 tablet by mouth daily at bedtime. - lisinopril (ZEST RIL, PRINIVIL) 40 mg tablet Take 1 tablet by mouth once daily. - amLODIPine (NORV ASC) 10 mg tablet Take 1 tablet by mouth once daily. - metoprolol succi jason ER (TOPROL XL) 50 mg 24 hr tablet Take 1 tablet by mouth once daily. - triamcinolone ac etonide (KENALOG) 0.1 % cream Apply 1 application to affected area thre e times daily. Apply sparingly to area for rash/itching. (Patient not chayo g: Reported on 08/16/2019 ) No current facilit y-administered medications for this visit. ALLERGIES: ALLERGIES No Known Allergies VITALS: BP 158/82 Pulse 88 Temp 37 ?C (98.6 ?F) (Tympanic) Resp 16 Wt 75.8 kg (167 lb) SpO2 98% BMI 29.58 kg/m? PHYSICAL EXAM: GEN: ill appear ing. Accompanied by her HEENT: PERRL, EOMI, conjunctiva clear Ears: canals clear. TMs without erythema, bulge, or effusion Sinuses: ten elena sinuses Throat: mois t mucous membranes, mild erythema, no exudate Neck: supple, n o thyromegaly, anterior tenderness with no lymphadenopathy HEART: regular rate and rhythm, no murmurs LUNGS: clear t o auscultation, no wheezes or crackles, no increased WOB; frequent rasp y coughing. ASSESSMENT/PLAN: 1. Viral URI with cough - ICD9: 465.9, ICD10: J06.9 - suspect viral U RI. She does not feel like her asthma is flared. - Discussed suppo rtive care treatment with rest, cold medicine, and analgesia. Advised BP may be elevated by decongestant. Codeine cough syru p did not seem to help much with her URI last month. Rashawn David MD CNOV Observed: 01/29/2020 Status: COMPLETED Source: Sel[place] POTTER 4:45 PM [facility]INIC [facility] REPOSITORY Office Visit (WSTR) JOSEPH OSMAN ([id number]) 1975 F NFR Date Time Provider Department 01/29/20 4:45 PM RASHAWN DAVID WSTR During your vi sit today, we recorded the following information about you: Temperature Pulse Respiration Blood pressure 98.6 degrees 88/minute 16/minute 158/82 Weight 75.8 kg Rashawn David MD 01/29/2020 5:29 PM Signed Patient presents w ith: Sinus Problem: sin us pressure and drainage, cough, bilateral ear pain and sore throat x 2 days HPI: Feeling sick for 3 days. She was seen her for URI 01/17/20 and improved after a couple days. Positive symptoms: Cough, Sore throat, Earache, Sinus pressure, Nasal Congestion, Rhinor juliette, Post nasal drainage, hot and cold without fevers, Negative symptoms: Fever, OTC: Mucinex, Suda fed, lozenges. Albuterol helps for a while. Quit smoking 1 wee k ago. 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 PAST MEDICAL HISTO RY Diagnosis Date - Asthma - Depression - Hypertension 09/2014 - Hypertriglycerid emia - Insomnia - Irritable bowel syndrome with diarrhea 06/24/2016 - MOUNIKA (obstructive sleep apnea) mild 10/09/2014 - Pancreatitis 201 1 Recurrent. - Pseudocyst of pa ncreas 2010 aspirated - Tobacco use 08/30 - Type 2 diabetes mellitus without complication (HCC) 02/19/2016 - Vitamin D defici ency MEDICATIONS: Current Outpatient Medications Medication Sig - albuterol sulfat e 90 mcg/actuation aepb EVERY 6 HOURS NEEDED PRN For Wheezing - fluticasone (BOB VENT) 110 mcg/actuation inhaler fluticasone Fluticasone 110 Mcg [Flovent (Sp)] 1 PUFF inhalation TWICE A DAY July 25, 2019 Active 07-25-2019 [facility] ([id number]) - metFORMIN (GLUCO PHAGE) 500 mg tablet Take 500 mg by mouth twice daily. - PARoxetine (PAXI L) 40 mg tablet Take 1 tablet by mouth once daily. - hydrOXYzine HCl (ATARAX) 25 mg tablet Take 1 tablet by mouth every 6 hours as needed for Itching /Rash or Anxiety. - ranitidine (ZANT AC) 150 mg tablet Take 1 tablet by mouth twice daily. - traZODone (DESYR EL) 50 mg tablet Take 1 tablet by mouth daily at bedtime. - lisinopril (ZEST RIL, PRINIVIL) 40 mg tablet Take 1 tablet by mouth once daily. - amLODIPine (NORV ASC) 10 mg tablet Take 1 tablet by mouth once daily. - metoprolol succi jason ER (TOPROL XL) 50 mg 24 hr tablet Take 1 tablet by mouth once daily. - triamcinolone ac etonide (KENALOG) 0.1 % cream Apply 1 application to affected area three times d aily. Apply sparingly to area for rash/itching. (Patient not taking: Reported o n 08/16/2019 ) No current facilit y-administered medications for this visit. ALLERGIES: ALLERGIES No Known Allergies VITALS: BP 158/82 Pulse 88 Temp 37 ?C (98.6 ?F) (Tympanic) Resp 16 Wt 75.8 kg (167 lb) SpO 2 98% BMI 29.58 kg/m? PHYSICAL EXAM: GEN: ill appear ing. Accompanied by her HEENT: PERRL, EOMI, conjunctiva clear Ears: canals clear. TMs without erythema, bulge, or effusion Sinuses: ten elena sinuses Throat: mois t mucous membranes, mild erythema, no exudate Neck: supple, n o thyromegaly, anterior tenderness with no lymphadenopathy HEART: regular rate and rhythm, no murmurs LUNGS: clear t o auscultation, no wheezes or crackles, no increased WOB; frequent raspy cou ghing. ASSESSMENT/PLAN: 1. Viral URI with cough - ICD9: 465.9, ICD10: J06.9 - suspect viral U RI. She does not feel like her asthma is flared. - Discussed suppo rtive care treatment with rest, cold medicine, and analgesia. Advised BP may be elevated by decongestant. Codeine cough syru p did not seem to help much with her URI last month. Rashawn David MD Referring Provider : SELF [[id number]] Allergies As of Da te: 01/29/2020 (No Known Allergie s) Date Reviewed: 12/2019 Reviewed by: Margoth Hammond Ma - Fully Assessed Reason for Visit: Sinus Problem [9 9] Cmt: sinus pressure and drainage, cough, bilateral ear pain and sore throat x 2 days Primary Visit Diag nosis:Viral URI with cough [J06.9] Prescriptions as o f 01/29/2020 Sig: ALBUTEROL SULF ATE 90 MCG/ACTU* EVERY 6 HOURS NEEDED PRN F* FLUTICASONE NY OPIONATE 110 MC* fluticasone Fluticasone 110 M* METFORMIN 500 MG TABLET Take 500 mg by mouth twice da* PAROXETINE 40 MG TABLET Take 1 tablet by mouth once d* HYDROXYZINE HC L 25 MG TABLET Take 1 tablet by mouth every * RANITIDINE 150 MG TABLET Take 1 tablet by mouth twice * TRAZODONE 50 M G TABLET Take 1 tablet by mouth daily * LISINOPRIL 40 MG TABLET Take 1 tablet by mouth once d* AMLODIPINE 10 MG TABLET Take 1 tablet by mouth once d* METOPROLOL SUC CINATE ER 50 MG* Take 1 tablet by mouth once d* TRIAMCINOLONE ACETONIDE 0.1 %* Apply 1 application to affect* Pa tient not taking: Reported on 08/16/2019 Problem List As Of Date 01/29/2020 Noted Resolved Depression [F32. 9] 08/15/2013 More... Insomnia [G47.00 ] 08/15/2013 09/16/2018 More... Asthma [J45.909] 08/15/2013 Tobacco use [Z72 .0] 09/26/2013 More... Vitamin D defici ency [E55.9] 01/30/2014 More... Fatigue [R53.83] 06/25/2014 11/27/2016 More... Sinusitis [J32.9 ] 06/25/2014 11/27/2016 More... MOUNIKA (obstructive sleep apnea) mild [G47.33] 10/09/2014 09/16/2018 More... Hypertension [I1 0] 10/09/2014 More... Hospital dischar ge follow-up [Z09] 10/09/2014 11/27/2016 More... Type 2 diabetes mellitus without complication (*02/19/2016 More... 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] 08/31/2019 Letter Text Encounter Status:C losed by RASHAWN DAVID MD on 01/29/20 PROGRESS Observed: 01/23/2020 Status: COMPLETED Source: [place] 4:00 PM CLINIC MAIN [facility] REPOSITORY HNO ID: [id number] Author: Jayjay Gibson Service: ? Author Type: Physi ronny Type: Progress Not es Filed: 01/25/2020 5:49 AM Note Text: Follow up podiatri c office visit for: Chief Complaint: T his 44 year old who presents for follow up:b/l foot pain L>R Patient presents t o clinic for evaluation of b/l feet. Patient continues to complain of jennifer n. She has pain along the instep of b/l feet. Patient has pain along the posterior tibial tendon of both feet L>R. Patient has tried period of in serts, physical therapy, nsaids and boot immobilization. She continues to have pain. Patient did take time off and her did get better but upon re turning to work, her pain returned. She is smoker but has not had cigarette in 2 weeks PAIN EVALUATION 01/23/2020 1555 Pain Level: 6 Pain Location: O ther: See Comment B/L feet Description: Thr obbing;Stabbing Duration Units: Months Frequency: Navdeep nuous Intervention: Re laxation Hemoglobin A1C Date Value Ref Ran ge Status 07/27/2019 7.2 (H) 4.3 - 5.6 % Final Comment: Citizen Of [place] Diabete s Association guidelines indicate that patients with HgbA1c in the range 5.7-6.4 % are at increased risk for development of diabetes, and intervention by li festyle modification may be beneficial. HgbA1c greater or equal to 6.5% is c onsidered diagnostic of diabetes. PCP: Abbe sevilla MD PAST MEDICAL HISTO RY Diagnosis Date - Asthma - Depression - Hypertension 09/2014 - Hypertriglycerid emia - Insomnia - Irritable bowel syndrome with diarrhea 06/24/2016 - MOUNIKA (obstructive sleep apnea) mild 10/09/2014 - Pancreatitis 201 1 Recurrent. - Pseudocyst of pa ncreas 2010 aspirated - Tobacco use 08/30 - Type 2 diabetes mellitus without complication (HCC) 02/19/2016 - Vitamin D defici ency Current Outpatient Medications Medication Sig - albuterol sulfat e 90 mcg/actuation aepb EVERY 6 HOURS NEEDED PRN For Wheezing - fluticasone (BOB VENT) 110 mcg/actuation inhaler fluticasone Fluticasone 110 Mcg [Flovent ( Sp)] 1 PUFF inhalation TWICE A DAY July 25, 2019 Active 07-25-2019 [facility] ([id number]) - metFORMIN (GLUCO PHAGE) 500 mg tablet Take 500 mg by mouth twice daily. - PARoxetine (PAXI L) 40 mg tablet Take 1 tablet by mouth once daily. - hydrOXYzine HCl (ATARAX) 25 mg tablet Take 1 tablet by mouth every 6 hours as needed fo r Itching/Rash or Anxiety. - ranitidine (ZANT AC) 150 mg tablet Take 1 tablet by mouth twice daily. - traZODone (DESYR EL) 50 mg tablet Take 1 tablet by mouth daily at bedtime. - lisinopril (ZEST RIL, PRINIVIL) 40 mg tablet Take 1 tablet by mouth once daily. - amLODIPine (NORV ASC) 10 mg tablet Take 1 tablet by mouth once daily. - metoprolol succi jason ER (TOPROL XL) 50 mg 24 hr tablet Take 1 tablet by mouth once daily. - triamcinolone ac etonide (KENALOG) 0.1 % cream Apply 1 application to affected area thre e times daily. Apply sparingly to area for rash/itching. (Patient not chayo goode: Reported on 08/16/2019 ) No current facilit y-administered medications for this visit. ALLERGIES No Known Allergies PAST SURGICAL HIST ORY Procedure Laterali ty Date - CHOLECYSTECTOMY 02/2011 laparoscopic - COLONOSCOP W/ OR W/O RUST SPEC 07/18/2014 Colonoscopy - COLONOSCOP W/ OR W/O RUST SPEC 09/11/15 Colonoscopy - EGD EUS GEN ANES 07/21/2012 FNA pseudocyst - EGD W/O OR W/BRU SH/WASH 07/18/2014 EGD - PAST SURGICAL HI STORY OF 2004 dental extraction - PAST SURGICAL HI STORY OF 2011 drainage of pancr eatic cyst Physical Exam: Constitutional: Pt is a well developed 44 year old female who is alert, oriented, cooperat loren and in no apparent distress. OBJECTIVE: Vascular: DP and P T pulses are faint left more than right. Foot is cool to touch. Hair gr owth is decreased. Dermatological: Nails 1-5 b/l are normal. Webspaces clean and dry 1-4 b/l. Skin appears well hydrated and supple. good color, texture, turgor. No open lesions present. No callos ities present. 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 History and phy sical examination completed today. 2. Discussed ongoi ng pain of left foot. She has accessory navicular that is causing pain. She has had no relief with therapy or use of boot. Recommend mri to f urther access posterior tibial tendon as accessory navicular appears to be within the tendon. Mri is necessary to aide in surgical planning. 3. Patient has hi story of smoking and diabetes and has faint pulses on exam. Recommend p vr to assure adequate perfusion in event she is to pursue surgery . 4. Continue on sm oking cessation. Jayjay Thibodeaux DPM PROGRESS Observed: 01/23/2020 Status: COMPLETED Source: Selene POTTER 3:54 PM [facility] REPOSITORY HNO ID: [id number] Author: Rubi ling Ma Service: ? Author Type: ? Type: Progress Not es Filed: 01/25/2020 5:49 AM Note Text: AMB ROOMING INTAKE FLOWSHEET DATA Pain Pain Level: 6 Pain Location: Oth er: See Comment(B/L feet) Description: Throb boyd, Stabbing Duration Units: Mo nths Frequency: Continu ous Intervention: Rela xation Patient presents w ith: Left Foot - Establ ished Patient, posterior tibial tendonitis Right Foot - Estab lished Patient, Posterior tibial tendonitis Patient states jennifer n began again after returning to work. CNOV Observed: 01/23/2020 Status: COMPLETED Source: Selene POTTER 3:45 PM [facility] REPOSITORY Office Visit (PODIWS) JOSEPH OSMAN ([id number]) 1975 F NFR Date Time Provider Department 01/23/20 3:45 PM JAYJAY THIBODEAUX During your vi sit today, we recorded the following information about you: Rubi Nickerson Ma 5:49 AM Signed AMB ROOMING INTAKE FLOWSHEET DATA Pain Pain Level: 6 Pain Location: Oth er: See Comment(B/L feet) Description: Throb boyd, Stabbing Duration Units: Mo nths Frequency: Continu ous Intervention: Rela xation Patient presents w ith: Left Foot - Establ ished Patient, posterior tibial tendonitis Right Foot - Estab lished Patient, Posterior tibial tendonitis Patient states jennifer n began again after returning to work. Jayjay Thibodeaux DPM 01/25/2020 5:49 AM Signed Follow up podiatri c office visit for: Chief Complaint: T his 44 year old who presents for follow up:b/l foot pain L>R Patient presents t o clinic for evaluation of b/l feet. Patient continues to complain of pain. She has pain along the instep of b/l feet. Patient has pain along the posterio r tibial tendon of both feet L>R. Patient has tried period of inserts, physic al therapy, nsaids and boot immobilization. She continues to have pain. aFmilia pena did take time off and her did get better but upon returning to work, her pain returned. She is smoker but has not had cigarette in 2 weeks PAIN EVALUATION 01/23/2020 1555 Pain Level: 6 Pain Location: O ther: See Comment B/L feet Description: Thr obbing;Stabbing Duration Units: Months Frequency: Navdeep nuous Intervention: Re laxation Hemoglobin A1C Date Value Ref Ran ge Status 07/27/2019 7.2 (H) 4.3 - 5.6 % Final Comment: [place] Diabete s Association guidelines indicate that patients with HgbA1c in the range 5.7-6.4 % are at increased risk for development of diabetes, and intervention by li eliotyle modification may be beneficial. HgbA1c greater or equal to 6.5% is c onsidered diagnostic of diabetes. PCP: Abbe sevilla MD PAST MEDICAL HISTO RY Diagnosis Date - Asthma - Depression - Hypertension 09/2014 - Hypertriglycerid emia - Insomnia - Irritable bowel syndrome with diarrhea 06/24/2016 - MOUNIKA (obstructive sleep apnea) mild 10/09/2014 - Pancreatitis 201 1 Recurrent. - Pseudocyst of pa ncreas 2010 aspirated - Tobacco use 08/30 - Type 2 diabetes mellitus without complication (HCC) 02/19/2016 - Vitamin D defici ency Current Outpatient Medications Medication Sig - albuterol sulfat e 90 mcg/actuation aepb EVERY 6 HOURS NEEDED PRN For Wheezing - fluticasone (BOB VENT) 110 mcg/actuation inhaler fluticasone Fluticasone 110 Mcg [Flovent (Sp)] 1 PUFF inhalation TWICE A DAY July 25, 2019 Active 07-25-2019 [facility] ([id number]) - metFORMIN (GLUCO PHAGE) 500 mg tablet Take 500 mg by mouth twice daily. - PARoxetine (PAXI L) 40 mg tablet Take 1 tablet by mouth once daily. - hydrOXYzine HCl (ATARAX) 25 mg tablet Take 1 tablet by mouth every 6 hours as needed for Itching /Rash or Anxiety. - ranitidine (ZANT AC) 150 mg tablet Take 1 tablet by mouth twice daily. - traZODone (DESYR EL) 50 mg tablet Take 1 tablet by mouth daily at bedtime. - lisinopril (ZEST RIL, PRINIVIL) 40 mg tablet Take 1 tablet by mouth once daily. - amLODIPine (NORV ASC) 10 mg tablet Take 1 tablet by mouth once daily. - metoprolol succi jason ER (TOPROL XL) 50 mg 24 hr tablet Take 1 tablet by mouth once daily. - triamcinolone ac etonide (KENALOG) 0.1 % cream Apply 1 application to affected area three times d aily. Apply sparingly to area for rash/itching. (Patient not taking: Reported o n 08/16/2019 ) No current facilit y-administered medications for this visit. ALLERGIES No Known Allergies PAST SURGICAL HIST ORY Procedure Laterali ty Date - CHOLECYSTECTOMY 02/2011 laparoscopic - COLONOSCOP W/ OR W/O RUST SPEC 07/18/2014 Colonoscopy - COLONOSCOP W/ OR W/O RUST SPEC 09/11/15 Colonoscopy - EGD EUS GEN ANES 07/21/2012 FNA pseudocyst - EGD W/O OR W/BRU SH/WASH 07/18/2014 EGD - PAST SURGICAL HI STORY OF 2004 dental extraction - PAST SURGICAL HI STORY OF 2011 drainage of pancr eatic cyst Physical Exam: Constitutional: Pt is a well developed 44 year old female who is alert, oriented, cooperat loren and in no apparent distress. OBJECTIVE: Vascular: DP and P T pulses are faint left more than right. Foot is cool to touch. Hair growt h is decreased. Dermatological: Nails 1-5 b/l are normal. Webspaces clean and dry 1-4 b/l. Skin appears well hydrated and suppl e. good color, texture, turgor. No open lesions present. No callosities presen t. 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 History and phy sical examination completed today. 2. Discussed ongoi ng pain of left foot. She has accessory navicular that is causing pain. She has had no relief with therapy or use of boot. Recommend mri to further acc ess posterior tibial tendon as accessory navicular appears to be within the tend on. Mri is necessary to aide in surgical planning. 3. Patient has hi story of smoking and diabetes and has faint pulses on exam. Recommend pvr to a ssure adequate perfusion in event she is to pursue surgery . 4. Continue on sm oking cessation. Jayjay Thbiodeaux DPM Referring Provider : SELF [[id number]] Allergies As of Da te: 01/23/2020 (No Known Allergie s) Date Reviewed: Reviewed by: Genet Nickerson Ma - Fully Assessed Reason for Visit: Established Jennifer ent [[id number]] posterior tibial tendonitis [Other] Established Jennifer ent [[id number]] Posterior tibial tendonitis [Other] Primary Visit Diag nosis:Pain in left foot [M79.672] Other Visit Diag noses:Posterior tibialis tendinitis of both lower extremities [M76.821, M76.822] 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] Type 2 diabetes mellitus without complication, without long-term current use of insulin (HCC) [E11.9] Pain of joint of left ankle and foot [M25.572] Diminished pulses in lower extremity [R09.89] Order(s):MRI ANKLE WO IVCON LT [[id number]] Order #: [id number] FUTURE PVR ANK P RESS [facility] [[id number]] Order #: [id number] FUTURE Prescriptions as o f 01/23/2020 Sig: ALBUTEROL SULF ATE 90 MCG/ACTU* EVERY 6 HOURS NEEDED PRN F* FLUTICASONE NY OPIONATE 110 MC* fluticasone Fluticasone 110 M* METFORMIN 500 MG TABLET Take 500 mg by mouth twice da* PAROXETINE 40 MG TABLET Take 1 tablet by mouth once d* HYDROXYZINE HC L 25 MG TABLET Take 1 tablet by mouth every * RANITIDINE 150 MG TABLET Take 1 tablet by mouth twice * TRAZODONE 50 M G TABLET Take 1 tablet by mouth daily * LISINOPRIL 40 MG TABLET Take 1 tablet by mouth once d* AMLODIPINE 10 MG TABLET Take 1 tablet by mouth once d* METOPROLOL SUC CINATE ER 50 MG* Take 1 tablet by mouth once d* TRIAMCINOLONE ACETONIDE 0.1 %* Apply 1 application to affect* Pa tient not taking: Reported on 08/16/2019 Problem List As Of Date 01/23/2020 Noted Resolved Depression [F32. 9] 08/15/2013 More... Insomnia [G47.00 ] 08/15/2013 09/16/2018 More... Asthma [J45.909] 08/15/2013 Tobacco use [Z72 .0] 09/26/2013 More... Vitamin D defici ency [E55.9] 01/30/2014 More... Fatigue [R53.83] 06/25/2014 11/27/2016 More... Sinusitis [J32.9 ] 06/25/2014 11/27/2016 More... MOUNIKA (obstructive sleep apnea) mild [G47.33] 10/09/2014 09/16/2018 More... Hypertension [I1 0] 10/09/2014 More... Hospital dischar ge follow-up [Z09] 10/09/2014 11/27/2016 More... Type 2 diabetes mellitus without complication (*02/19/2016 More... 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] 08/31/2019 Notes for Staf f Call patient w ith results Follow Up: Call patient with results Follow-up and Disp osition History Recorded Encounter Status:C losed by JAYJAY THIBODEAUX DPM on 01/25/20 PROGRESS Observed: 01/17/2020 Status: COMPLETED Source: [place] POT[place] 9:46 AM [facility] REPOSITORY HNO ID: [id number] Author: Rashawn Dillard Service: ? Author Type: Physi ronny Type: Progress Not es Filed: 01/17/2020 1 0:10 AM Note Text: Patient presents w ith: Head Congestion: c hest congestion, cough, ear pain, diarrhea and chills x 1 week HPI: Feeling sick for o luis antonio a 1 week, was feeling Ok and went back to work 2 days ago, now feel ing more sick again. Positive symptoms: Cough, Earache, Chills, body aches, Diarrhea, some Wheezing/shortness of breath, scratchy throat, Nasal Congestion, Rhinorrhea, Nausea , fatigue Negative symptoms: OTC: Mucinex, Suda fed, Tylenol, albuterol PAST MEDICAL HISTO RY Diagnosis Date - Asthma - Depression - Hypertension 09/2014 - Hypertriglycerid emia - Insomnia - Irritable bowel syndrome with diarrhea 06/24/2016 - MOUNIKA (obstructive sleep apnea) mild 10/09/2014 - Pancreatitis 201 1 Recurrent. - Pseudocyst of pa ncreas 2010 aspirated - Tobacco use 08/30 - Type 2 diabetes mellitus without complication (HCC) 02/19/2016 - Vitamin D defici ency MEDICATIONS: Current Outpatient Medications Medication Sig - albuterol sulfat e 90 mcg/actuation aepb EVERY 6 HOURS NEEDED PRN For Wheezing - fluticasone (BOB VENT) 110 mcg/actuation inhaler fluticasone Fluticasone 110 Mcg [Flovent ( Sp)] 1 PUFF inhalation TWICE A DAY July 25, 2019 Active 07-25-2019 [facility] ([id number]) - metFORMIN (GLUCO PHAGE) 500 mg tablet Take 500 mg by mouth twice daily. - PARoxetine (PAXI L) 40 mg tablet Take 1 tablet by mouth once daily. - hydrOXYzine HCl (ATARAX) 25 mg tablet Take 1 tablet by mouth every 6 hours as needed fo r Itching/Rash or Anxiety. - ranitidine (ZANT AC) 150 mg tablet Take 1 tablet by mouth twice daily. - traZODone (DESYR EL) 50 mg tablet Take 1 tablet by mouth daily at bedtime. - lisinopril (ZEST RIL, PRINIVIL) 40 mg tablet Take 1 tablet by mouth once daily. - amLODIPine (NORV ASC) 10 mg tablet Take 1 tablet by mouth once daily. - metoprolol succi jason ER (TOPROL XL) 50 mg 24 hr tablet Take 1 tablet by mouth once daily. - triamcinolone ac etonide (KENALOG) 0.1 % cream Apply 1 application to affected area thre e times daily. Apply sparingly to area for rash/itching. (Patient not chayo goode: Reported on 08/16/2019 ) No current facilit y-administered medications for this visit. ALLERGIES: ALLERGIES No Known Allergies VITALS: BP 124/80 Pulse 80 Temp 36.1 ?C (96.9 ?F) (Tympanic) Resp 16 Wt 74.8 kg (165 lb ) SpO2 96% BMI 29.23 kg/m? PHYSICAL EXAM: GEN: mildly ill appearing HEENT: PERRL, EOMI, conjunctiva clear Ears: canals clear. TMs without erythema, bulge, or effusion Sinuses: non -tender frontal sinus, non-tender maxillary sinuses Throat: mois t mucous membranes, pharyngeal erythema, no exudate Neck: supple, n o thyromegaly, no lymphadenopathy HEART: regular rate and rhythm, no murmurs LUNGS: clear t o auscultation, no wheezes or crackles, no increased WOB; occasional ra spy cough ASSESSMENT/PLAN: 1. URI with cough and congestion - ICD9: 465.9, ICD10: J06.9 Asthma is not sign ificantly flared. No signs of pneumonia. Antonio has not b een helpful when she is like this in the past - CODEINE 10 MG-GUAIFENESIN 100 MG/5 ML ORAL LIQUID Rashawn David MD CNOV Observed: 01/17/2020 Status: COMPLETED Source: Selene POTTER 9:30 AM [facility] REPOSITORY Office Visit (UCWSTR) JOSEPH OSMAN ([id number]) 1975 F NFR Date Time Provider Department 01/17/20 9:30 AM RASHAWN DAVID WSTR During your vi sit today, we recorded the following information about you: Temperature Pulse Respiration Blood pressure 96.9 degrees 80/minute 16/minute 124/80 Weight 74.8 kg Rashawn David MD 01/17/2020 10:10 AM Signed Patient presents w ith: Head Congestion: c hest congestion, cough, ear pain, diarrhea and chills x 1 week HPI: Feeling sick for o luis antonio a 1 week, was feeling Ok and went back to work 2 days ago, now feeling m ore sick again. Positive symptoms: Cough, Earache, Chills, body aches, Diarrhea, some Wheezing/shortness of breath, scratchy throat, Nasal Congestion, Rhinorrhea, Nausea, fatigue Negative symptoms: OTC: Mucinex, Suda fed, Tylenol, albuterol PAST MEDICAL HISTO RY Diagnosis Date - Asthma - Depression - Hypertension 09/2014 - Hypertriglycerid emia - Insomnia - Irritable bowel syndrome with diarrhea 06/24/2016 - MOUNIKA (obstructive sleep apnea) mild 10/09/2014 - Pancreatitis 201 1 Recurrent. - Pseudocyst of pa ncreas 2010 aspirated - Tobacco use 08/30 - Type 2 diabetes mellitus without complication (HCC) 02/19/2016 - Vitamin D defici ency MEDICATIONS: Current Outpatient Medications Medication Sig - albuterol sulfat e 90 mcg/actuation aepb EVERY 6 HOURS NEEDED PRN For Wheezing - fluticasone (BOB VENT) 110 mcg/actuation inhaler fluticasone Fluticasone 110 Mcg [Flovent (Sp)] 1 PUFF inhalation TWICE A DAY July 25, 2019 Active 07-25-2019 [facility] ([id number]) - metFORMIN (GLUCO PHAGE) 500 mg tablet Take 500 mg by mouth twice daily. - PARoxetine (PAXI L) 40 mg tablet Take 1 tablet by mouth once daily. - hydrOXYzine HCl (ATARAX) 25 mg tablet Take 1 tablet by mouth every 6 hours as needed for Itching /Rash or Anxiety. - ranitidine (ZANT AC) 150 mg tablet Take 1 tablet by mouth twice daily. - traZODone (DESYR EL) 50 mg tablet Take 1 tablet by mouth daily at bedtime. - lisinopril (ZEST RIL, PRINIVIL) 40 mg tablet Take 1 tablet by mouth once daily. - amLODIPine (NORV ASC) 10 mg tablet Take 1 tablet by mouth once daily. - metoprolol succi jason ER (TOPROL XL) 50 mg 24 hr tablet Take 1 tablet by mouth once daily. - triamcinolone ac etonide (KENALOG) 0.1 % cream Apply 1 application to affected area three times d aily. Apply sparingly to area for rash/itching. (Patient not taking: Reported o n 08/16/2019 ) No current facilit y-administered medications for this visit. ALLERGIES: ALLERGIES No Known Allergies VITALS: BP 124/80 Pulse 80 Temp 36.1 ?C (96.9 ?F) (Tympanic) Resp 16 Wt 74.8 kg (165 lb) SpO2 96% BMI 29.23 kg/m? PHYSICAL EXAM: GEN: mildly ill appearing HEENT: PERRL, EOMI, conjunctiva clear Ears: canals clear. TMs without erythema, bulge, or effusion Sinuses: non -tender frontal sinus, non-tender maxillary sinuses Throat: mois t mucous membranes, pharyngeal erythema, no exudate Neck: supple, n o thyromegaly, no lymphadenopathy HEART: regular rate and rhythm, no murmurs LUNGS: clear t o auscultation, no wheezes or crackles, no increased WOB; occasional raspy c ough ASSESSMENT/PLAN: 1. URI with cough and congestion - ICD9: 465.9, ICD10: J06.9 Asthma is not sign ificantly flared. No signs of pneumonia. Antonio has not b een helpful when she is like this in the past - CODEINE 10 MG-GUAIFENESIN 100 MG/5 ML ORAL LIQUID Rashawn David MD Referring Provider : SELF [[id number]] Allergies As of Da te: 01/17/2020 (No Known Allergie s) Date Reviewed: Reviewed by: Margoth Hammond Ma - Fully Assessed Reason for Visit: Head Congestion [234] Cmt: chest congestion, cough, ear pain, diarrhea and chills x 1 week Primary Visit Diag nosis:URI with cough and congestion [J06.9] Order(s):codeine-g uaiFENesin (GUAIFENESIN AC) 10-100 mg/5 mL syrupTake 5 mL by mouth belgica ry 8 hours as needed for Cough for up to 5 days.Disp: 60 mLRfl: 0 Prescriptions as o f 01/17/2020 Sig: ALBUTEROL SULF ATE 90 MCG/ACTU* EVERY 6 HOURS NEEDED PRN F* FLUTICASONE [place] OPIONATE 110 MC* fluticasone Fluticasone 110 M* METFORMIN 500 MG TABLET Take 500 mg by mouth twice da* PAROXETINE 40 MG TABLET Take 1 tablet by mouth once d* HYDROXYZINE HC L 25 MG TABLET Take 1 tablet by mouth every * RANITIDINE 150 MG TABLET Take 1 tablet by mouth twice * TRAZODONE 50 M G TABLET Take 1 tablet by mouth daily * LISINOPRIL 40 MG TABLET Take 1 tablet by mouth once d* AMLODIPINE 10 MG TABLET Take 1 tablet by mouth once d* METOPROLOL SUC CINATE ER 50 MG* Take 1 tablet by mouth once d* CODEINE 10 MG- GUAIFENESIN 100* Take 5 mL by mouth every 8 ho* TRIAMCINOLONE ACETONIDE 0.1 %* Apply 1 application to affect* Ellie rizo not taking: Reported on 08/16/2019 Problem List As Of Date 01/17/2020 Noted Resolved Depression [F32. 9] 08/15/2013 More... Insomnia [G47.00 ] 08/15/2013 09/16/2018 More... Asthma [J45.909] 08/15/2013 Tobacco use [Z72 .0] 09/26/2013 More... Vitamin D defici ency [E55.9] 01/30/2014 More... Fatigue [R53.83] 06/25/2014 11/27/2016 More... Sinusitis [J32.9 ] 06/25/2014 11/27/2016 More... MOUNIKA (obstructive sleep apnea) mild [G47.33] 10/09/2014 09/16/2018 More... Hypertension [I1 0] 10/09/2014 More... Hospital dischar ge follow-up [Z09] 10/09/2014 11/27/2016 More... Type 2 diabetes mellitus without complication (*02/19/2016 More... 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] 08/31/2019 Prescriptions orde red this encounter Disp Refills Start End CODEINE 10 MG- AIFENESIN 100 MG/5 M* 60 mL 0 01/17/2020 01/22/2020 Route: ORAL Sig: Take 5 mL b y mouth every 8 hours as needed for Cough for up to 5 days. Medications Discon tinued During This Encounter metoprolol succi jason ER (TOPROL XL) * 05/06/2019 01/17/2020 Class: Med Upd ate Route: ORAL Sig: Take 2 ta blets by mouth once daily. Patient not ta patricia: Reported on 08/16/2019 Disc: Reason f or discontinue is not on file. cyclobenzaprine (FLEXERIL) 10 mg tab* 12 t* 0 08/24/2019 01/17/2020 Route: ORAL Sig: Take 1 ta blet by mouth three times daily as needed for Muscle Spasm. Patient not ta patricia: Reported on 11/06/2019 Disc: Reason f or discontinue is not on file. Letter Text Encounter Status:C losed by RASHAWN DAVID MD on 01/17/20 PROGRESS Observed: 12/27/2019 Status: COMPLETED Source: [facility] 8:17 AM [facility] HNO ID: [id number] Author: Rubi ling Ma Service: ? Author Type: ? Type: Progress Not es Filed: 12/27/2019 8:19 AM Note Text: Per Dr. Thibodeaux Joseph was provided with Airselect, size M, and instructed/educate d in its application, wear, and care. All questions were answered, and patient was able to demonstrate competence with the necessary skills t o utilize the above equipment. [place]annah will bill patient's insuranc e. Rubi Nickerson Ma CNNURSE Observed: 12/27/2019 Status: COMPLETED Source: [facility] 8:00 AM [facility] Nurse Visit (PODIWS) XOCHILTJOSEPH Pena ([id number]) 1975 F NFR Date Time Provider Department 12/27/19 8:00 AM NURSE/[facility] PODIWS During your vi sit today, we recorded the following information about you: Rubi Nickerson Ma 8:[address] Thibodeaux, Joseph was provided with Airselect, size M, and instructed/educate d in its application, wear, and care. All questions were answered, and jennifer ent was able to demonstrate competence with the necessary skills to utilize the above equipment. Sandra will bill patient's insurance. Rubi Nickerson Ma Referring Provider : JAYJAY THIBODEAUX [[id number]] Allergies As of Da te: 12/27/2019 (No Known Allergie s) Date Reviewed: Reviewed by: Genet Nickerson Ma - Fully Assessed Primary Visit Diag nosis:Pain in left foot [M79.672] Prescriptions as o f 12/27/2019 Sig: MELOXICAM 15 M G TABLET Take 1 tablet by mouth once d* CYCLOBENZAPRIN E 10 MG TABLET Take 1 tablet by mouth three * Pa tient not taking: Reported on 11/06/2019 METFORMIN 500 MG TABLET Take 500 mg by mouth twice da* PAROXETINE 40 MG TABLET Take 1 tablet by mouth once d* HYDROXYZINE HC L 25 MG TABLET Take 1 tablet by mouth every * RANITIDINE 150 MG TABLET Take 1 tablet by mouth twice * TRAZODONE 50 M G TABLET Take 1 tablet by mouth daily * LISINOPRIL 40 MG TABLET Take 1 tablet by mouth once d* AMLODIPINE 10 MG TABLET Take 1 tablet by mouth once d* METOPROLOL SUC CINATE ER 50 MG* Take 1 tablet by mouth once d* TRIAMCINOLONE ACETONIDE 0.1 %* Apply 1 application to affect* Pa tient not taking: Reported on 08/16/2019 METOPROLOL SUC CINATE ER 25 MG* Take 2 tablets by mouth once * Pa tient not taking: Reported on 08/16/2019 Problem List As Of Date 12/27/2019 Noted Resolved Depression [F32. 9] 08/15/2013 More... Insomnia [G47.00 ] 08/15/2013 09/16/2018 More... Asthma [J45.909] 08/15/2013 Tobacco use [Z72 .0] 09/26/2013 More... Vitamin D defici ency [E55.9] 01/30/2014 More... Fatigue [R53.83] 06/25/2014 11/27/2016 More... Sinusitis [J32.9 ] 06/25/2014 11/27/2016 More... MOUNIKA (obstructive sleep apnea) mild [G47.33] 10/09/2014 09/16/2018 More... Hypertension [I1 0] 10/09/2014 More... Hospital dischar ge follow-up [Z09] 10/09/2014 11/27/2016 More... Type 2 diabetes mellitus without complication (*02/19/2016 More... 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] 08/31/2019 Encounter Status:C losed by RUBI NICKERSON MA on 12/27/19 CNCO Observed: 12/27/2019 Status: COMPLETED Source: C [facility] 12:00 AM [facility] Letter Text PROGRESS Observed: 12/19/2019 Status: COMPLETED Source: [facility] [place] 4:47 PM [facility] HNO ID: [id number] Author: Liam (Pt) Gualberto Service: ? Author Type: Physi angelita Therapist Type: Progress Not es Filed: 12/19/2019 4:48 PM Note Text: 12/19/2019 [facility] PHYSICAL THERAPY D ISCONTINUANCE OF CARE Plan of Care Perio d: Start of Care Date : 08/31/19 Last Visit Date: 12/17/2018 Therapy Program: The following is a summary of the interventions provided for this episode of care; T herapeutic exercise, Manual therapy, Patient/Family/Car egiver Education and Modalities: Ultrasound Assessment: The following is t he goal status: Goals for Episode of Care: created on 08/31/19 through 10/26/19 Pt able to walk 1/ 2 a mile without increased pain more than 2/10 [place] [facility] exercise program. - Not met, will continue Patient will decre ase pain rating by 2 points to meet minimal clinical important differen ce for numeric pain rating scale.- Not met, will continue Patient will decre ase pain to 2/10 with functional activities to allow patient to improve ease of work duties. - Not met, will continue Patient will incre ase strength of BLE to 5/5 to allow for return to prior functional status. - progressing, will continue Perform squat with decreased report of symptoms/pain in 8 weeks. - Not met, will continue Increase ROM of BL E to WNL for improved gait quality. - Progressing, will continue Normal gait. - pro gressing Reciprocal stair n egotiation- Not met, will continue Based on the most recent progress report, patient was progressing slower than expected towa rd functional goals based on pain levels and documented subjective informa tion on progress. Reason for Discont inuation of Care: Patient has not returned to therapy or scheduled addition al follow-up appointments. Liam Burciaga PT PROGRESS Observed: 12/19/2019 Status: COMPLETED Source: [facility] [place] 8:54 AM [facility] REPOSIT[facility] HNO ID: [id number] Author: Jayjay Gibson Service: ? Author Type: Physi ronny Type: Progress Not es Filed: 12/19/2019 1 2:26 PM Note Text: Follow up podiatri c office visit for: Chief Complaint: T his 44 year old who presents for follow up:b/l foot pain. Patient presents t o clinic for follow-up b/l foot pain. Patient has pain along b/l midfoot along posterior tibial tendon insertion. Patient is using powerstep in serts but she feels the inserts just cause her more pressure. She has been given ankle brace but she feels that just rubs. She had been doing physical therapy but has not gone since October 17. She states there i s still pain and she states the pain is 6/10. Patient is diabetic and he r a1c in june was 7.2. She continues to smoke 5-6 cigarettes/day. PAIN EVALUATION 12/19/2019 0848 Pain Level: 6 Pain Location: O ther: See Comment B/L feet Description: Ach ing Duration Units: Months Frequency: Navdeep nuous Intervention: Re laxation Hemoglobin A1C Date Value Ref Ran ge Status 07/27/2019 7.2 (H) 4.3 - 5.6 % Final Comment: Citizen Of [place] Diabete s Association guidelines indicate that patients with HgbA1c in the range 5.7-6.4 % are at increased risk for development of diabetes, and intervention by li kdle modification may be beneficial. HgbA1c greater or equal to 6.5% is c onsidered diagnostic of diabetes. PCP: Abbe sevilla MD PAST MEDICAL HISTO RY Diagnosis Date - Asthma - Depression - Hypertension 09/2014 - Hypertriglycerid emia - Insomnia - Irritable bowel syndrome with diarrhea 06/24/2016 - MOUNIKA (obstructive sleep apnea) mild 10/09/2014 - Pancreatitis 201 1 Recurrent. - Pseudocyst of pa ncreas 2010 aspirated - Tobacco use 08/30 - Type 2 diabetes mellitus without complication (HCC) 02/19/2016 - Vitamin D defici ency Current Outpatient Medications Medication Sig - meloxicam (MOBIC ) 15 mg tablet Take 1 tablet by mouth once daily. - metFORMIN (GLUCO PHAGE) 500 mg tablet Take 500 mg by mouth twice daily. - PARoxetine (PAXI L) 40 mg tablet Take 1 tablet by mouth once daily. - hydrOXYzine HCl (ATARAX) 25 mg tablet Take 1 tablet by mouth every 6 hours as needed fo r Itching/Rash or Anxiety. - ranitidine (ZANT AC) 150 mg tablet Take 1 tablet by mouth twice daily. - traZODone (DESYR EL) 50 mg tablet Take 1 tablet by mouth daily at bedtime. - lisinopril (ZEST RIL, PRINIVIL) 40 mg tablet Take 1 tablet by mouth once daily. - amLODIPine (NORV ASC) 10 mg tablet Take 1 tablet by mouth once daily. - metoprolol succi jason ER (TOPROL XL) 50 mg 24 hr tablet Take 1 tablet by mouth once daily. - cyclobenzaprine (FLEXERIL) 10 mg tablet Take 1 tablet by mouth three times daily as nee ded for Muscle Spasm. (Patient not taking: Reported on 11/06/2019 ) - triamcinolone ac etonide (KENALOG) 0.1 % cream Apply 1 application to affected area thre e times daily. Apply sparingly to area for rash/itching. (Patient not takin g: Reported on 08/16/2019 ) - metoprolol succi jason ER (TOPROL XL) 25 mg 24 hr tablet Take 2 tablets by mouth once daily. (Patient not taking: Reported on 08/16/2019 ) No current facilit y-administered medications for this visit. ALLERGIES No Known Allergies PAST SURGICAL HIST ORY Procedure Laterali ty Date - CHOLECYSTECTOMY 02/2011 laparoscopic - COLONOSCOP W/ OR W/O RUST SPEC 07/18/2014 Colonoscopy - COLONOSCOP W/ OR W/O RUST SPEC 09/11/15 Colonoscopy - EGD EUS GEN ANES 07/21/2012 FNA pseudocyst - EGD W/O OR W/BRU SH/WASH 07/18/2014 EGD - PAST SURGICAL HI STORY OF 2004 dental extraction - PAST SURGICAL HI STORY OF 2011 drainage of pancr eatic cyst Physical Exam: Constitutional: Pt is a well developed 44 year old female who is alert, oriented, cooperat loren and in no apparent distress. OBJECTIVE: NVSI unchanged fro m previous visit. Dermatological: Nails 1-5 b/l are normal. Webspaces clean and dry 1-4 b/l. Skin appears well hydrated and supple. good color, texture, turgor. No open lesions present. No callos ities present. Musculoskeletal/Or thopaedic: Patient has pain t o palpation of b/l navicular tuberosity mmt is 5/5 for dwayne ntar flexion, dorsiflexion, inversion and eversion ASSESSMENT: (M76.821, M76.822 ) Posterior tibialis tendinitis of both lower extremities (prim allison encounter diagnosis) (Q74.2) Accessory navicular bone of both feet PLAN: 1. History and phy sical examination completed today. 2. Discussed chron ic pain of b/l feet along medial navicular. She has accessory navicula r. She has used therapy and inserts. She feels original powerstep s make her pain worse. Offered her gel inserts vs boot. Today, she has el ected to use gel inserts. If pain fails to improve, consider boot and mri. 3. Discussed eduar rock of accessory navicular. I would hold on any surgery until she stops sm bhumi Thibodeaux DPM PROGRESS Observed: 12/19/2019 Status: COMPLETED Source: [facility] 8:48 AM [facility] RE[facility] HNO ID: [id number] Author: Rubi ling Ma Service: ? Author Type: ? Type: Progress Not es Filed: 12/19/2019 1 2:26 PM Note Text: AMB ROOMING INTAKE FLOWSHEET DATA Pain Pain Level: 6 Pain Location: Oth er: See Comment(B/L feet) Description: Achin g Duration Units: Mo nths Frequency: Continu ous Intervention: Rela xation Patient presents w ith: Left Foot - eyelet row marker ior tibial tendonitis, Established Patient Right Foot - poste rior tibial tendonitis, Established Patient Patient states jennifer n remains the same as REGINO. CNOV Observed: 12/19/2019 Status: COMPLETED Source: [facility] 8:45 AM [facility] Office Visit (PODIWS) JOSEPH OSMAN ([id number]) 1975 F NFR Date Time Provider Department 12/19/19 8:45 AM JAYJAY THIBODEAUX During your vi sit today, we recorded the following information about you: Rubi Nickerson Barrett 12:26 PM Signed AMB ROOMING INTAKE FLOWSHEET DATA Pain Pain Level: 6 Pain Location: Oth er: See Comment(B/L feet) Description: Achin g Duration Units: Mo nths Frequency: Continu ous Intervention: Rela xation Patient presents w ith: Left Foot - eyelet row marker ior tibial tendonitis, Established Patient Right Foot - poste rior tibial tendonitis, Established Patient Patient states jennifer n remains the same as REGINO. Jayjay Thibodeaux DPM 12/19/2019 12:26 PM Signed Follow up podiatri c office visit for: Chief Complaint: T his 44 year old who presents for follow up:b/l foot pain. Patient presents t o clinic for follow-up b/l foot pain. Patient has pain along b/l midfoot along posterior tibial tendon insertion. Patient is using powerstep inserts but she feels the inserts just cause her more pressure. She has been given ank le brace but she feels that just rubs. She had been doing physical therapy b ut has not gone since October 17. She states there is still pain and she states the pain is 6/10. Patient is diabetic and her a1c in june was 7.2. S he continues to smoke 5-6 cigarettes/day. PAIN EVALUATION 12/19/2019 0848 Pain Level: 6 Pain Location: O ther: See Comment B/L feet Description: Ach ing Duration Units: Months Frequency: Navdeep nuous Intervention: Re laxation Hemoglobin A1C Date Value Ref Ran ge Status 07/27/2019 7.2 (H) 4.3 - 5.6 % Final Comment: [place] Diabete s Association guidelines indicate that patients with HgbA1c in the range 5.7-6.4 % are at increased risk for development of diabetes, and intervention by li kdle modification may be beneficial. HgbA1c greater or equal to 6.5% is c onsidered diagnostic of diabetes. PCP: Abbe sevilla MD PAST MEDICAL HISTO RY Diagnosis Date - Asthma - Depression - Hypertension 09/2014 - Hypertriglycerid emia - Insomnia - Irritable bowel syndrome with diarrhea 06/24/2016 - MOUNIKA (obstructive sleep apnea) mild 10/09/2014 - Pancreatitis 201 1 Recurrent. - Pseudocyst of pa ncreas 2010 aspirated - Tobacco use 08/30 - Type 2 diabetes mellitus without complication (HCC) 02/19/2016 - Vitamin D defici ency Current Outpatient Medications Medication Sig - meloxicam (MOBIC ) 15 mg tablet Take 1 tablet by mouth once daily. - metFORMIN (GLUCO PHAGE) 500 mg tablet Take 500 mg by mouth twice daily. - PARoxetine (PAXI L) 40 mg tablet Take 1 tablet by mouth once daily. - hydrOXYzine HCl (ATARAX) 25 mg tablet Take 1 tablet by mouth every 6 hours as needed for Itching /Rash or Anxiety. - ranitidine (ZANT AC) 150 mg tablet Take 1 tablet by mouth twice daily. - traZODone (DESYR EL) 50 mg tablet Take 1 tablet by mouth daily at bedtime. - lisinopril (ZEST RIL, PRINIVIL) 40 mg tablet Take 1 tablet by mouth once daily. - amLODIPine (NORV ASC) 10 mg tablet Take 1 tablet by mouth once daily. - metoprolol succi jason ER (TOPROL XL) 50 mg 24 hr tablet Take 1 tablet by mouth once daily. - cyclobenzaprine (FLEXERIL) 10 mg tablet Take 1 tablet by mouth three times daily as needed fo r Muscle Spasm. (Patient not taking: Reported on 11/06/2019 ) - triamcinolone ac etonide (KENALOG) 0.1 % cream Apply 1 application to affected area three times d aily. Apply sparingly to area for rash/itching. (Patient not taking: Reported o n 08/16/2019 ) - metoprolol succi jason ER (TOPROL XL) 25 mg 24 hr tablet Take 2 tablets by mouth once daily. (Patient not taking: Reported on 08/16/2019 ) No current facilit y-administered medications for this visit. ALLERGIES No Known Allergies PAST SURGICAL HIST ORY Procedure Laterali ty Date - CHOLECYSTECTOMY 02/2011 laparoscopic - COLONOSCOP W/ OR W/O RUST SPEC 07/18/2014 Colonoscopy - COLONOSCOP W/ OR W/O RUST SPEC 09/11/15 Colonoscopy - EGD EUS GEN ANES 07/21/2012 FNA pseudocyst - EGD W/O OR W/BRU SH/WASH 07/18/2014 EGD - PAST SURGICAL HI STORY OF 2004 dental extraction - PAST SURGICAL HI STORY OF 2011 drainage of pancr eatic cyst Physical Exam: Constitutional: Pt is a well developed 44 year old female who is alert, oriented, cooperat loren and in no apparent distress. OBJECTIVE: NVSI unchanged fro m previous visit. Dermatological: Nails 1-5 b/l are normal. Webspaces clean and dry 1-4 b/l. Skin appears well hydrated and suppl e. good color, texture, turgor. No open lesions present. No callosities presen t. Musculoskeletal/Or thopaedic: Patient has pain t o palpation of b/l navicular tuberosity mmt is 5/5 for dwayne ntar flexion, dorsiflexion, inversion and eversion ASSESSMENT: (M76.821, M76.822 ) Posterior tibialis tendinitis of both lower extremities (primary encounter diagnosis) (Q74.2) Accessory navicular bone of both feet PLAN: 1. History and phy sical examination completed today. 2. Discussed chron ic pain of b/l feet along medial navicular. She has accessory navicula r. She has used therapy and inserts. She feels original powersteps make he r pain worse. Offered her gel inserts vs boot. Today, she has elected to use gel inserts. If pain fails to improve, consider boot and mri. 3. Discussed eduar rock of accessory navicular. I would hold on any surgery until she stops sm bhumi Thibodeaux DPM Referring Provider : SELF [[id number]] Allergies As of Da te: 12/19/2019 (No Known Allergie s) Date Reviewed: Reviewed by: Genet Nickerson Ma - Fully Assessed Reason for Visit: posterior tibial tendonitis [Other] Established Jennifer ent [[id number]] posterior tibial tendonitis [Other] Established Jennifer ent [[id number]] Primary Visit Diag nosis:Posterior tibialis tendinitis of both lower extremities [M76.821, M76.822] Other Visit Diag nosis: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] Prescriptions as o f 12/19/2019 Sig: MELOXICAM 15 M G TABLET Take 1 tablet by mouth once d* METFORMIN 500 MG TABLET Take 500 mg by mouth twice da* PAROXETINE 40 MG TABLET Take 1 tablet by mouth once d* HYDROXYZINE HC L 25 MG TABLET Take 1 tablet by mouth every * RANITIDINE 150 MG TABLET Take 1 tablet by mouth twice * TRAZODONE 50 M G TABLET Take 1 tablet by mouth daily * LISINOPRIL 40 MG TABLET Take 1 tablet by mouth once d* AMLODIPINE 10 MG TABLET Take 1 tablet by mouth once d* METOPROLOL SUC CINATE ER 50 MG* Take 1 tablet by mouth once d* CYCLOBENZAPRIN E 10 MG TABLET Take 1 tablet by mouth three * Pa tient not taking: Reported on 11/06/2019 TRIAMCINOLONE ACETONIDE 0.1 %* Apply 1 application to affect* Pa tient not taking: Reported on 08/16/2019 METOPROLOL SUC CINATE ER 25 MG* Take 2 tablets by mouth once * Pa tient not taking: Reported on 08/16/2019 Problem List As Of Date 12/19/2019 Noted Resolved Depression [F32. 9] 08/15/2013 More... Insomnia [G47.00 ] 08/15/2013 09/16/2018 More... Asthma [J45.909] 08/15/2013 Tobacco use [Z72 .0] 09/26/2013 More... Vitamin D defici ency [E55.9] 01/30/2014 More... Fatigue [R53.83] 06/25/2014 11/27/2016 More... Sinusitis [J32.9 ] 06/25/2014 11/27/2016 More... MOUNIKA (obstructive sleep apnea) mild [G47.33] 10/09/2014 09/16/2018 More... Hypertension [I1 0] 10/09/2014 More... Hospital dischar ge follow-up [Z09] 10/09/2014 11/27/2016 More... Type 2 diabetes mellitus without complication (*02/19/2016 More... 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 Follow-up and Disp osition History Recorded Encounter Status:C losed by JAYJAY THIBODEAUX DPM on 12/19/19 PROGRESS Observed: 10/17/2019 Status: COMPLETED Source: [facility] 3:49 PM [facility] REPOSITORY HNO ID: [id number] Author: Liam (Pt) Gualberto Service: ? Author Type: Physi angelita Therapist Type: Progress Not es Filed: 10/17/2019 7:13 PM Note Text: Episode Visit Coun t: 6 Therapist That Ace ordaz Oversee The Plan Of Care: Liam Burciaga Start of Care Date : 08/31/19 Onset Date: Plan of Care Certi fication Date: 08/31/19 Patient Identified by Name and Date of : Yes REHABILITATION AND SPORTS THERAPY PHYSICAL THERAPY T REATMENT NOTE ASSESSMENT: Joseph Osman demonstrated difficulty with L foot pain that is worse than the R f oot and causes pt to demonstrate a slight antalgic gait. The patient will continue to benefit from ongoing skilled physical therapy for progre ssion towards therapy goals. PLAN FOR NEXT VISI T: Continue with US a nd ther ex. SUBJECTIVE: Patien t Reason for Visit: Pt states that her heels are hurting today too and is n ot sure why. Pain: Pain Pain Level: 6 Pain Location: Dimple t - Right;Foot - Left Description: Achin g;Stabbing Frequency: Intermi ttent Post Treatment Jennifer n Post Treatment Jennifer n Level: 5 Post Treatment Jennifer n Location: Foot - Left(R foot pain is 0/10 after US treatment) Post Treatment Jennifer n Description: Aching OBJECTIVE MEASURES WITH LEVEL OF FUNCTION: Pt tolerated Ultra sound on bilateral tibialis posterior tendon well with minor pain in the L side which was quickly corrected with decreasing the power to 1.3 w/cm2 Pt walked into the clinic with an antalgic gait on the LLE. Pt left the clinic walking wit h normal quality of gait due to decreased pain from US modality. TREATMENT: Therapeutic Exerci se: 1: Seated gastroc stretch 3x30 seconds bilat 2: Ambulating 100 feet x2 without shoes(Normal quality of gait) 3: Stretching toe flexors using towel in seated 3x30 sec bilat Skilled Interventi on: Patient education as noted. Modalities: Ultrasound Body Region Treate d - Ultrasound: R and L tibialis posterior tendons Patient Position: prone Mode: 100% w/cm2: 1.3 MHZ: 1 Minutes: 24(12 min for each foot) See flowsheet for details regarding treatment. Skilled Intervention: Proper administrat ion and selection of modality based on clinical presentation, defi cits, and needs. Patient response monitored throughout treatment. Billing: [facility]: Therapeutic Exercise (40945): 1:1 time: 15 minutes (1 unit: 8-22 mins) Modalities Ultraso und (71249) 1:1 time: 24 minutes2 units: 23-37 mins Total time: 39 min raúl Burciaga PT CNTHERAPY Observed: 10/17/2019 Status: COMPLETED [facility] REPOSITORY OT/PT/Speech Visit (PTWS) JOSEPH OSMAN ([id number]) 1975 F NFR Date Time Provider Department 10/17/19 3:45 PM LIAM BURCIAGA (PT) PTWS Date Time Provider Department Center 10/17/2019 3:45 PM [id number], COREY (PT)PTWS [facility] Reason for Visit: Physical Therapy [503] PT Discharge [75 2] Reason For Visit H istory Recorded Primary Visit Diag nosis:Posterior tibialis tendinitis of both lower extremities [M76.821, M76.822] Other Visit Diag nosis: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] Allergies As of Da te: 10/17/2019 (No Known Allergie s) Date Reviewed: Reviewed by: Venita Tran RN - Fully Assessed Prescriptions as o f 10/17/2019 Sig: MELOXICAM 15 M G TABLET Take 1 tablet by mouth once d* CYCLOBENZAPRIN E 10 MG TABLET Take 1 tablet by mouth three * Pa tient not taking: Reported on 11/06/2019 METFORMIN 500 MG TABLET Take 500 mg by mouth twice da* PAROXETINE 40 MG TABLET Take 1 tablet by mouth once d* HYDROXYZINE HC L 25 MG TABLET Take 1 tablet by mouth every * RANITIDINE 150 MG TABLET Take 1 tablet by mouth twice * TRAZODONE 50 M G TABLET Take 1 tablet by mouth daily * LISINOPRIL 40 MG TABLET Take 1 tablet by mouth once d* AMLODIPINE 10 MG TABLET Take 1 tablet by mouth once d* METOPROLOL SUC CINATE ER 50 MG* Take 1 tablet by mouth once d* TRIAMCINOLONE ACETONIDE 0.1 %* Apply 1 application to affect* Pa tient not taking: Reported on 08/16/2019 METOPROLOL SUC CINATE ER 25 MG* Take 2 tablets by mouth once * Pa tient not taking: Reported on 08/16/2019 Progress Notes: Liam Burciaga, PT 10/17/2019 7:13 PM Signed Episode Visit Coun t: 6 Therapist That Ace ordaz Oversee The Plan Of Care: Liam Burciaga Start of Care Date : 08/31/19 Onset Date: Plan of Care Certi fication Date: 08/31/19 Patient Identified by Name and Date of : Yes REHABILITATION AND SPORTS THERAPY PHYSICAL THERAPY T REATMENT NOTE ASSESSMENT: Joseph Osman demonstrated difficulty with L foot pain that is worse than the R foot an d causes pt to demonstrate a slight antalgic gait. The patient will navdeep nue to benefit from ongoing skilled physical therapy for progression toward s therapy goals. PLAN FOR NEXT VISI T: Continue with US a nd ther ex. SUBJECTIVE: Patien t Reason for Visit: Pt states that her heels are hurting today too and is not halima e why. Pain: Pain Pain Level: 6 Pain Location: Dimple t - Right;Foot - Left Description: Achin g;Stabbing Frequency: Intermi ttent Post Treatment Jennifer n Post Treatment Jennifer n Level: 5 Post Treatment Jennifer n Location: Foot - Left(R foot pain is 0/10 after US treatment) Post Treatment Jennifer n Description: Aching OBJECTIVE MEASURES WITH LEVEL OF FUNCTION: Pt tolerated Ultra sound on bilateral tibialis posterior tendon well with minor pain in the L side which was quickly corrected with decreasing the power to 1.3 w/cm2 Pt walked into the clinic with an antalgic gait on the LLE. Pt left the clinic walking with abdirashid l quality of gait due to decreased pain from US modality. TREATMENT: Therapeutic Exerci se: 1: Seated gastroc stretch 3x30 seconds bilat 2: Ambulating 100 feet x2 without shoes(Normal quality of gait) 3: Stretching toe flexors using towel in seated 3x30 sec bilat Skilled Interventi on: Patient education as noted. Modalities: Ultrasound Body Region Treate d - Ultrasound: R and L tibialis posterior tendons Patient Position: prone Mode: 100% w/cm2: 1.3 MHZ: 1 Minutes: 24(12 min for each foot) See flowsheet for details regarding treatment. Skilled Intervention: Proper administration and selection of modality based on clinical presentation, deficits, and need s. Patient response monitored throughout treatment. Billing: [facility]: Therapeutic Exercise (40004): 1:1 time: 15 minutes (1 unit: 8-22 mins) Modalities Ultraso und (69169) 1:1 time: 24 minutes2 units: 23-37 mins Total time: 39 min YOLANDA Fontanez PT 12/19/2019 4:48 PM Signed 12/19/2019 [facility] R EHABILITATION AND SPORTS THERAPY PHYSICAL THERAPY D ISCONTINUANCE OF CARE Plan of Care Perio d: Start of Care Date : 08/31/19 Last Visit Date: 12/17/2018 Therapy Program: The following is a summary of the interventions provided for this episode of care; T herapeutic exercise, Manual therapy, Patient/Family/Caregiver Education and Moda lities: Ultrasound Assessment: The following is t he goal status: Goals for Episode of Care: created on 08/31/19 through 10/26/19 Pt able to walk 1/ 2 a mile without increased pain more than 2/10 [facility] exercise program. - Not met, will continue Patient will decre ase pain rating by 2 points to meet minimal clinical important differen ce for numeric pain rating scale.- Not met, will continue Patient will decre ase pain to 2/10 with functional activities to allow patient to improve ease of work duties. - Not met, will continue Patient will incre ase strength of BLE to 5/5 to allow for return to prior functional status. - progressing, will continue Perform squat with decreased report of symptoms/pain in 8 weeks. - Not met, will continue Increase ROM of BL E to WNL for improved gait quality. - Progressing, will continue Normal gait. - pro gressing Reciprocal stair n egotiation- Not met, will continue Based on the most recent progress report, patient was progressing slower than expected toward fu nctional goals based on pain levels and documented subjective information on pro prudence. Reason for Discont inuation of Care: Patient has not returned to therapy or scheduled addition al follow-up appointments. Liam Burciaga, PT ALLERGIES ALLERGIES DATE TYPE / CODE NAME / CODE REACTION SEVERITY SOURCE Drug NO KNOWN [facility] ic Class/44862 ALLERGIES [place] 1003(SNOMED CT) ENCOUNTERS ENCOUNTERS ADMIT/DISCHARGE ACCOUNT ADMITTING ENCOUNTER LOCATION SOURCE NUMBER CLASS 09/17/2020/ [id number] Ambulatory Building:[facility] 0 F [facility] 08/27/2020/ [id number] Ambulatory Building:[facility] Cl [facility] 0 G [facility] 08/27/2020/ [id number] Ambulatory Building:WOU Cl [facility] 0 C [facility] 08/01/2020/ [id number] Ambulatory Building:WOR Cl [facility] 0 2 [facility] 08/01/2020/ [id number] Ambulatory Building:WOL Cl [facility] 0 2 [facility] 08/01/2020/ [id number] Ambulatory Building:WOP Cl [facility] 0 O [facility] 07/19/2020/ [id number] Ambulatory Building:LCV Cl [facility] 0 S [facility] 07/15/2020/ [id number] Ambulatory Building:WOI Cl [facility] 0 A [facility] 07/03/2020/ [id number] Ambulatory Building:WOU Cl [facility] 0 S [facility] 07/03/2020/ [id number] Ambulatory Building:WOD Cl [facility] 0 M [facility] 07/01/2020/ [id number] Ambulatory Building:WOP Cl [facility] 0 O [facility] 06/28/2020/ [id number] Ambulatory Building:WOF Cl [facility] 0 M [facility] 06/24/2020/07/28 [id number] Ambulatory Building:INS Cl chaparro 0 L [facility] 06/21/2020/ [id number] Ambulatory Building:WOD Cl [facility] 0 M [facility] 06/21/2020/07/24 [id number] Ambulatory Building:WOL Cl chap[place] 0 2 [facility] 06/07/2020/ [id number] Ambulatory Building:WOP Cl [facility] 0 O [facility] 06/07/2020/ [id number] Ambulatory Building:WOI Cl [facility] 0 A [facility] 05/20/2020/ [id number] Ambulatory Building:WOL Cl chaparro 0 2 [facility] 05/20/2020/ [id number] Ambulatory Building:WOP Cl [facility] 0 O [facility] 02/13/2020/ [id number] Ambulatory Building:Unk Cl chap[place] 0 nown [facility] 02/05/2020/ [id number] Ambulatory Building:Unk Cl [facility] 0 nown [facility] 01/29/2020/ [id number] Ambulatory Building:Unk Cl [facility] 0 nown [facility] 01/25/2020/ [id number] Ambulatory Building:Unk Cl [facility] 0 nown [facility] 01/23/2020/ [id number] Ambulatory Building:Unk Cl [facility] 0 nown [facility] 01/17/2020/ [id number] [facility] 12/27/2019/ [id number] [facility] 12/19/2019/ [id number] [facility] 10/17/2019/ [id number] Ambulatory Building:[facility] Cl [facility] 9 [facility] PAYERS PAYERS ENCOUNTER GUARANTOR PAYER SUBSCRIBER SOURCE 09/17/2020 Primary JOSEPH L HURTDOB: [facility] Insurance:[employer] [id number] Sánchez ACCESS [place], Number: [place] [id number] [id number] tive Date:5470-21-85Qe an Name: 08/27/2020 Primary JOSEPH L HURTDOB: S[facility]chez inic Insurance:swabr [id number] Sánchez ACCESS Geraldy [place], Number: [place] [id number] tive Date:0489-58-80Ij an Name: 08/27/2020 Primary JOSEPH L HURTDOB: [facility] Insurance:[employer] [id number] Sánchez ACCESS Geraldy [place], Number: [place] [id number] tive Date:5428-27-06Ni an Name: 08/01/2020 Primary JOSEPH L HURTDOB: [facility] Insurance:swabr [id number] Sánchez ACCESS PPOPolicy [place], Number: [place] [id number] tive Date:8379-72-20Up an Name: 08/01/2020 Primary JOSEPH L HURTDOB: [facility] Insurance:swabr [id number] Sánchez ACCESS PPPanday [place], Number: [place] [id number] [id number] tive Date:9003-17-66Ty an Name:Sheron 08/01/2020 Primary JOSEPH L HURTDOB: [facility] Insurance:BLUE [id number] Sánchez ACCESS [place], Number: [place] [id number] tive Date:6669-77-92Hv an Name:J 07/19/2020 Primary JOSEPH L HURTDOB: [facility] Insurance:BLUE [id number] Sánchez ACCESS ROXANNDeysiicy [place], Number: [place] [id number] [id number] tive Date:7957-34-41Oj an Name: 07/15/2020 Primary JOSEPH L HURTDOB: [facility] Insurance:BLUE [id number] Sánchez CARD PPOPolicy [place], Number: [place] [address] [id number] tive Date:3939-54-89Ir an Name:J 07/03/2020 Primary JOSEPH L HURTDOB: [facility] Insurance:BLUE [id number] Sánchez CARD PPOPolicy [place], [place]: [place] [id number] [id number] tive Date:2436-75-82Qe an Name:J 07/03/2020 Primary JOSEPH L HURTDOB: [facility] Insurance:BLUE [id number] Sánchez CARD Macicy A[place]AMELIE [place], Number: [place] [address] [id number] tive Date:4498-26-90Rs an Name: 07/01/2020 Primary JOSEPH L HURTDOB: [facility] Insurance:BLUE [id number] Sánchez CARD PPOPolicy [place], Number: [place] [address] [id number] tive Date:7011-81-61Qd an Name:Sheron 06/28/2020 Primary JOSEPH L HURTDOB: [facility] Insurance:BLUE [id number] Sánchez CARD PPOPolicy [place], [place]: [place] [id number] tive Date:0023-11-46Zx an Name: 06/24/2020 Primary JOSEPH L HURTDOB: [facility] Insurance:[employer] [id number] Sánchez CARD [place], [place]: [place] [id number] [id number] tive Date:9972-37-51Rz an Name: 06/21/2020 Primary JOSEPH L HURTDOB: [facility] Insurance:[employer] [id number] Sánchez CARD [place], [place]: [place] [id number] tive Date:2892-72-29Lg an Name: 06/21/2020 Primary JOSEPH L HURTDOB: [facility] Insurance:[employer]ARE [id number] Sánchez CARD ROXANNIrais [place], [place]: [place] [id number] tive Date:5113-56-05Hx an Name: 06/07/2020 Primary JSOEPH L HURTDOB: [facility] Insurance:[employer] [id number] Sánchez CARD ROXANNIrais [place], [place] [id number] tive Date:5626-72-83Wd an Name: 06/07/2020 Primary JOSEPH L HURTDOB: [facility] Insurance:[employer] [id number] Sánchez CARD [place], Number: [place] [id number] tive Date:4412-27-04Nv an Name: 05/20/2020 Primary JOSEPH L HURTDOB: [facility] Insurance:[employer] [id number] Sánchez CARD [place], [place]: [place] [id number] tive Date:2077-80-13Ew an Name: 05/20/2020 Primary JOSEPH L HURTDOB: [facility] Insurance:[employer] [id number] Sánchez CARD PPOPolicguanakito [place], [place]: [place] [id number] [id number] tive Date:2216-59-63Fo an Name:J 02/13/2020 Primary JOSEPH L HURTDOB: [facility] Insurance:BLUE [id number] Sánchez CARD PPDeysiicguanakito [place], [place]: [place] [id number] [id number] tive Date:1166-51-75Qj an Name:J 02/05/2020 Primary JOSEPH L HURTDOB: [facility] Insurance:BLUE [id number] Sánchze CARD PPIrais [place], Number: [place] [address] [id number] tive Date:4939-02-07Um an Name:J 01/29/2020 Primary JOSEPH L HURTDOB: [facility] Insurance:BLUE [id number] Sánchez CARD PPOPolicguanakito [place], [place]: [place] [id number] tive Date:0444-78-83Ns an Name:Sheron 01/25/2020 Primary JOSEPH L HURTDOB: [facility] Insurance:BLUE [id number] Sánchez CARD PPOPolicguanakito [place], [place]: [place] [address] [id number] tive Date:8004-24-77Ll an Name:Sheron 01/23/2020 Primary JOSEPH L HURTDOB: [facility] Insurance:BLUE [id number] Sánchez CARD PPOPolicy [place], [place]: [place] [id number] [id number] tive Date:5302-97-81Lc an Name:J 01/17/2020 Primary JOSEPH L HURTDOB: [facility] Insurance:BLUE [id number] Sánchez CARD PPOPolicy [place], [place]: [place] [id number] [id number] tive Date:3577-82-12Of an Name:Sheron 12/27/2019 Primary JOSEPH LEMONTDOB: [facility] Insurance:BLUE [id number] Sánchez [place], Number: [place] [id number] [id number] tive Date:2535-02-30Dm an Name:Sheron 12/19/2019 Primary JOSEPH L XOCHILTTDOB: [facility] Insurance:BLUE [id number] Sánchez [place], Number: [place] [id number] [id number] tive Date:5481-63-60Fj an Name:Sheron
== END ==
PROVIDERS: PCP Internal Medicine; Visit Provider Family Medicine
DX: E11.9 Type 2 diabetes mellitus without complications (principal); I10 Essential (primary) hypertension
CPT/HCPCS: 36415; 80053; 80061; 82043; 83036; 84443

== ENCOUNTER → 2020-12-20 11:13 | Outpatient (CLI) | payer BC, SELFPAY ==
[2020-12-20 12:59] LABS: Anion Gap 7 (5-15); BUN 10 mg/dL (7-18); BUN/Creat Ratio 15.2 RATIO (10-20); Calcium,Total 8.3 mg/dL (8.5-10.1); Chloride 104 mmol/L (98-107); Creatinine, Serum 0.66 mg/dL (0.55-1.02); EST Glomerular Filtration Rate 104 mL/min (>60); Est Glom Filt Rate - Afr Amer 126 mL/min (>60); Glucose 163 mg/dL (74-106); Sodium Level 137 mmol/L (136-145)
== END ==
PROVIDERS: PCP Family Medicine; Referring Provider Family Medicine; Visit Provider Family Medicine
DX: I10 Essential (primary) hypertension (principal)
CPT/HCPCS: 36415; 80048

== ENCOUNTER 2021-02-26 13:30 | Outpatient (RCR) | payer BC, SELFPAY ==
--- NOTE | 2021-01-16 16:15 | HP.PTEVAL_ITS ---
Patient's Visit Information JOSEPH RINCON is a 45 year old F referred to Physical Therapy by Dr. Romeo Aguilar MD with a diagnosis of L lateral epicondylitis.. Date of Evaluation: 01/16/21 Physical Therapist: David Krishna, DPT, OCS, CSCS - Visit Plan Frequency: 2-3x /Week Duration: 4-6 Weeks Plan: 2-3x/week for 3-4 weeks for. 1. US nonthermal to L lat epicondyle. 2. STM and CFM to L lat epi and wrist extensors. 3. monitor use of brace and home TENS. 4. stretching and ecc stregnth to L wrist extensors progressing to UE and postural strength. - Subjective L elbow pain for over 6 months. Injection one month ago helped a little bit b uit then pain came back. Tried some exercises with weight but it did not help. 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 40+ hrs week adn worse after . Not as bad on off days. Sometimes hard to get comfortable at night. Morning hurts to straighten arm. Has done ice massage. Taking OTC meds. Has an elbow strap but it doesn't help. Home activities are i nterrupted as she just rests, cooks which is normal. 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 - Pain L lat epi elbow Pain Intensity (Out of 10): 8 Pain Intensity Range: 1, 8 Comment: after work. - Objective L max tenderness over elbow lateral epicondyle adn into wrist extensors. UE AROM WFL shoulder , elbow, wrist but painful at end range of flexion adn extension L. Wrist extensiona dn middle digit ext very painful and weak. Elbow strength 4/5, wrist flexion 4/5, thumb extension 4/5, no pain. Neck AROM WFL adn painfree. reflexes 2/3 bi and tri. Sensation UE WNL to gross light touch. + lat epi tests L. - Goals Goal 1:: Patient painfree at rest. Goal Time Frame: 4-6 Weeks Goal 2:: Patient tolerate work with or without brace without increased pain. Goal Time Frame: 4-6 Weeks Goal 3:: Pt I approp HEP to imit future problems Goal Time Frame: 4-6 Weeks Goal 4:: Quick dash <10 Goal Time Frame: 4-6 Weeks - Rehabilitation Potential Physical Therapy Diagnosis: L lateral epicondylitis Rehabilitation Potential: Questionable - Anticipated Interventions Patient/Client Instruction: Educate patient on: Condition, Plan of Care For the Purpose of:: To decrease pain, To decrease swelling/inflammation, To improve muscle performance and motor function, To increase tolerance to activity/condition/position Therapeutic Exercise to Include: Strength training, Postural training, Flexibilty training, Passive ROM, Active ROM, Scapular Strength/Stabilization For the Purpose of:: To decrease pain, To decrease swelling/inflammation, To increase ROM, To increase tolerance to activity/condition/position Manual Therapy Techniques to Include: Mobilization, Passive ROM, Soft tissue mobilization For the Purpose of:: To decrease pain, To decrease swelling/inflammation Orthotics: Brace Comment: recommend wrist brace For the Purpose of:: To decrease pain, To decrease swelling/inflammation Ultrasound (thermal/non thermal): Yes - nonthermal For the Purpose of:: To decrease pain, To decrease swelling/inflammation Thank you for the opportunity to evaluate your patient. For Medicare and Medicare HMO plans, please review the plan of care and approve it. It will need to be FAXED BACK to us at [phone] for Medicare purposes. For Medicare only, by signing this I certify the plan of care. Please let me know if there are questions or concerns regarding this plan of care. Physician Signature: Date:_
--- NOTE | 2021-02-05 15:45 | HP.PTREVAL ---
Dr. Romeo Aguilar MD, It has been my pleasure to treat JOSEPH RINCON over the last 6 visits for L lateral epicondylitis.. Please see the progress note below for an update on the physical therapy plan of care! Subjective: Feeling better. It did not hurt driving here which is unusual. Will be off starting Wednesday for 3 months due to foot surgery. Today pain 3/10. Sleep is OK. Brace did not help but stretches and strengthening can be helpful. To Dr. Aguilar in two weeks. Objective/Function: No signficant progress thus far. Currently working a lot of hours-- will be off beginning next Wednesday and ending in April for another unrelated srugery. Anticipate that reduction in aggravating activities at that time may aid in recovery process. Plan Plan: Full aROM at wrist and elbow but still mod tender with palpation lat epi, wrist ext adn middle finger resisted ext are painful. subjectively better Goals Goal 1:: Patient painfree at rest. Goal Time Frame: 4-6 Weeks Goal Progress: Progressing Goal 2:: Patient tolerate work with or without brace without increased pain. Goal Time Frame: 4-6 Weeks Goal Progress: Progressing Goal 3:: Pt I approp HEP to imit future problems Goal Time Frame: 4-6 Weeks Goal Progress: Goal Met Goal 4:: Quick dash <10 Goal Time Frame: 4-6 Weeks Goal Progress: Progressing Anticipated Interventions Patient/Client Instruction: Educate patient on: Condition, Plan of Care For the Purpose of:: To decrease pain, To decrease swelling/inflammation, To improve muscle performance and motor function, To increase tolerance to activity/condition/position Therapeutic Exercise to Include: Strength training, Postural training, Flexibilty training, Passive ROM, Active ROM, Scapular Strength/Stabilization For the Purpose of:: To decrease pain, To decrease swelling/inflammation, To increase ROM, To increase tolerance to activity/condition/position Manual Therapy Techniques to Include: Mobilization, Passive ROM, Soft tissue mobilization For the Purpose of:: To decrease pain, To decrease swelling/inflammation Orthotics: Brace Comment: recommend wrist brace For the Purpose of:: To decrease pain, To decrease swelling/inflammation Ultrasound (thermal/non thermal): Yes - nonthermal For the Purpose of:: To decrease pain, To decrease swelling/inflammation Please do not hesitate to contact me at [phone] by phone or if you have questions or concerns regarding this new plan of care! Sincerely, David Krishna, DPT, OCS, CSCS
--- NOTE | 2021-02-26 13:23 | HP.PTDCSUM ---
It has been my pleasure to treat JOSEPH RINCON referred by Dr. Romeo Aguilar MD, with the diagnosis of L lateral epicondylitis. for a total of 7 visit(s). Discharge Date: 02/26/21 Please see the following information for a summary of their discharge status. Subjective: Doing good. No pain every day. Pain now and then only. Pain to 4/10 for unknown reason, often times in the morning. Lat work was 02/06 and has not worked since. Back May 10. Be conscious of sleeping position. Still doing stretching at home L lat epi elbow Pain Intensity (Out of 10): 1 % Improvement: 99 Objective/Function: Full aROM L UE, tender mod at lat epi origin but strong. 4/5 in wrist ext adn flexion. 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 Goal 1:: Patient painfree at rest. Goal Progress: Goal Met Goal 2:: Patient tolerate work with or without brace without increased pain. Goal Progress: not working. Goal 3:: Pt I approp HEP to imit future problems Goal Progress: Goal Met Goal 4:: Quick dash <10 Goal Progress: 11 is good Plan: d/c to P Discharge Comments: Will contact doctor if problems. If there are questions or concerns regarding this patient's physical therapy, please feel free to call me at [phone]. Thank you for the referral of this patient. Sincerely, David Krishna, DPT, OCS, CSCS
== END 2021-02-26 19:00 | disposition home or self-care (01) ==
LOC: PT 13:30
PROVIDERS: PCP Family Medicine; Referring Provider Family Medicine; Visit Provider Family Medicine
DX: M77.12 Lateral epicondylitis, left elbow (principal)
CPT/HCPCS: 97035; 97110; 97140; 97161; 97164; 97530

== ENCOUNTER → 2021-04-14 13:53 | Outpatient (CLI) | payer BC, SELFPAY ==
[2021-02-23 08:55] VITALS: BMI 27.8
--- NOTE | 2021-04-14 13:57 | RAD_ITS ---
STUDY: X-RAY CHEST REASON FOR EXAM: Female, 46 years old. Chronic cough TECHNIQUE: PA and lateral views of the chest. COMPARISON: 09/12/2018 FINDINGS: The lungs are clear and expanded. There is no demonstrated pleural abnormality. Normal size heart. Normal mediastinum and aviva. Normal visualized pulmonary arteries. Normal visualized aortic arch and descending thoracic aorta. Normal visualized thoracic spine. Normal visualized ribs, clavicles, and shoulders. There is no demonstrated abnormality of the visualized soft tissue structures of the upper abdomen. RAD/Chest PA and Lateral IMPRESSION: Normal x-ray examination of the chest. Electronically Signed: Henrique Jean MD at 16:01 EDT , Service support ,
== END ==
PROVIDERS: PCP Family Medicine; Referring Provider Family Medicine; Visit Provider Family Medicine
DX: R05 Cough (principal)
CPT/HCPCS: 71046

== ENCOUNTER → 2021-05-08 08:31 | Outpatient (CLI) | payer BC, SELFPAY ==
[2021-02-23 08:55] VITALS: BMI 27.8
--- NOTE | 2021-05-08 14:20 | PFTCOMP ---
COMPLETE PULMONARY FUNCTION TEST INTERPRETATION Brief HPI: Patient is a 46 year old female, currently under the care of Dr. Aguilar, who presents to [facility] for complete pulmonary function tests secondary to diagnosis of cough. Respiratory therapist reports good effort and reproducible results. Interpretation: Forced expiration spirometry shows a mild large airways obstructive ventilatory defect with an FEV1 of 73% predicted. There is no significant bronchodilator response by strict ATS criteria. Spirograms are of good quality and plateau slowly, indicating slowly emptying areas of the lungs. The respiratory flow volume loop shows decreased expiratory flow rates at high lung volumes consistent with small airways obstruction. Lung volumes by body plethysmography show an elevated total lung capacity at 6.12 L, 122% predicted. FRC and RV are elevated out of proportion. Lung volume measurements are consistent with hyperinflation and air-trapping. Diffusion capacity by carbon monoxide is decreased at 58% predicted. The airway resistance is elevated. No previous pulmonary function tests were available for review. Impression: Irreversible mild large airways obstructive ventilatory defect with a symmetric reduction diffusion capacity, resulting in air trapping with hyperinflation, in a pattern consistent with COPD.
== END ==
PROVIDERS: PCP Family Medicine; Referring Provider Family Medicine; Visit Provider Family Medicine
DX: R05 Cough (principal)
CPT/HCPCS: 94060; 94726; 94729

== ENCOUNTER 2021-07-18 14:01 | Emergency (ER) | payer BC, SELFPAY ==
[2021-07-18 14:01] VITALS: BP 179/89; PULSE 112; RESP 16; TEMP 36.1; O2SAT 97; BMI 27.4
[2021-07-18 15:16] VITALS: BP 149/91
--- NOTE | 2021-07-18 15:36 | EX.ED.DYSGE1 ---
HPI History of Present Illness Chief Complaint: Hypertension Informant: patient and family Onset/Context/Timing Onset: Today Current Severity: Mild Maximum Severity: Mild Narrative Narrative: 46-year-old female history of hypertension, diabetes, depression anxiety. Recently had a lot of bad news her dad was diagnosed with stage IV cancer and a friend of hers was recently placed in hospice. States she has been more anxious. Today at work she just felt funny. It took her blood pressure was elevated at 177/100 and they sent her in emergency room to be evaluated. Initial blood pressures taken at 120s afternoon. She denies chest pain. Prior similar symptoms: Yes Recent Illness/Hospitalization: No PFSH PFSH Medical History Diabetes HTN (hypertension) Home Medications amlodipine 10 mg PO DAILY 09/04/18 [History Last Taken Unknown] lisinopril 40 mg PO DAILY 09/04/18 [History Last Taken Unknown] paroxetine HCl 40 mg PO DAILY 09/04/18 [History Last Taken Unknown] hydroxyzine HCl 25 mg PO Q6H PRN 07/25/19 [History Last Taken Unknown] metformin 500 mg PO BID #60 tab 07/25/19 [Rx Last Taken Unknown] metoprolol succinate 100 mg PO DAILY 07/25/19 [History Last Taken Unknown] trazodone 50 mg PO QHS 07/25/19 [History Last Taken Unknown] buspirone 7.5 mg tablet 7.5 mg PO DAILY tablet 02/23/21 [History Last Taken Unknown] spironolactone 25 mg tablet 25 mg PO DAILY tablet 02/23/21 [History Last Taken Unknown] Allergy/AdvReac Type Severity Reaction Status Date / Time No Known Allergies Allergy Verified 07/18/21 14:03 Family History Grandfather CVA (cerebral vascular accident) Diabetes Mother Cancer Father Hypertension Grandmother Hypertension Diabetes Surgical History H/O tooth extraction History of cholecystectomy plantar fasciitis release Social History Smoking Status: Current every day smoker tobacco type: cigarettes alcohol intake: current alcohol intake frequency: a few times a month Alcohol type: hard liquor ROS ROS ED ROS Narrative Denies recent illness. Review of Systems ROS Unobtainable: Denies due to encephalopathy Constitutional Constitutional ED: Denies anorexia Eyes Eyes: Denies blindness ENT ENT ED: Denies change in voice or ear pain Cardiovascular Cardiovascular: Denies abdominal pain Respiratory/Chest Respiratory/Chest: Denies chest tightness Gastrointestinal Gastrointestinal: Denies abdominal pain Genitourinary Genitourinary ED: Denies none or difficulty urinating Musculoskeletal Musculoskeletal: Denies back pain Neurologic Neurologic: Denies abnormal speech Psychiatric Psychiatric: Reports anxiety; Denies behavioral changes Endocrine Endocrinology: Denies change in body appearance Hematologic/Lymphatic Hematologic/Lymphatic: Denies lymphadenopathy Allergic/Immunologic Allergic/Immunologic ED: Denies none, lip swelling or mouth swelling EXAM Physical Exam Narrative Exam Narrative: Middle-aged female no acute distress. Vital signs stable initial blood pressure 179/80 9 repeat blood pressure 149/91. HEENT exam normal. Neck no lymphadenopathy. Lungs clear to auscultation. Heart regular rhythm rate about 100. Abdomen soft nontender normal bowel sounds no peritoneal signs. Patient moving all 4 extremities. Nontender no edema. Neurologic exam normal. Awake alert. Answering questions. Following commands. Fingertip to nose within normal limits. NIH score 0. Const Vital Signs: 07/18/21 14:01 07/18/21 15:13 07/18/21 15:16 Temperature 97.0 F L Temperature Source Temporal Pulse Rate 112 H Respiratory Rate 16 Respiratory Pattern Normal Blood Pressure 179/89 H 149/91 H Blood Pressure Mean 119 110 Pulse Ox 97 Oxygen Delivery Method Room Air Positive well nourished, well developed, alert, oriented x3, no apparent distress, average body habitus and no limitations; Negative for cachectic or unkempt General Appearance ED: well developed; Negative for unkempt or cachectic Nutritional Appearance: Negative for cachectic HEENT Reports normocephalic and head/scalp atraumatic normocephalic and normal to inspection Eyes PERRL and EOMs intact bilaterally Neck full ROM, nuchal rigidity, no lymphadenopathy, supple, no meningeal signs and no JVD Lymph Lymphatic: no lymphadenopathy noted and no lymphedema noted Chest Wall inspection of chest normal and palpation of chest normal Resp normal respiratory effort, normal air movement, no retractions and no use of accessory muscles Cardio regular rate, regular rhythm, S1 normal heart sound, S2 normal heart sound, no murmurs, no rub, no gallops, no clicks and no JVD GI normal to inspection, nondistended, normoactive bowel sounds, soft to palpation, non-tender, non-distended and no masses Back/Spine no CVA tenderness and normal to inspection Extremity normal to inspection, full ROM, no joint enlargement, no calf tenderness and no pedal edema Neuro oriented x3, CN's II-XII intact bilaterally, moves all extremities and no focal motor deficits Psych mental status grossly normal, thought process normal, cooperative, affect normal, speech normal and activity/motor behavior normal Appearance: Negative for unkempt Skin no rashes or lesions noted, no wounds, no jaundice, no petechiae and no mottling MDM MDM MDM Narrative Medical decision making narrative: 46-year-old female acute on chronic hypertension. Exam benign. Blood pressure currently 149/91. She will be discharged home. Continue her current medications. Lock her blood pressures over the next several days and follow-up with her primary care physician. She will be written off work tomorrow. Discharge Plan Triage Chief Complaint: Hypertension ED Provider: Francisco Colon Dx/Rx/DC Orders Clinical Impression: HTN (hypertension) Instructions: Controlling High Blood Pressure, ED Hypertension, Established Prescriptions: No Action buspirone 7.5 mg tablet 7.5 mg PO DAILY RF: 0 spironolactone 25 mg tablet 25 mg PO DAILY RF: 0 paroxetine HCl 10 MG tablet 40 mg PO DAILY RF: 0 amlodipine 2.5 MG tablet 10 mg PO DAILY RF: 0 lisinopril 20 MG tablet 40 mg PO DAILY RF: 0 hydroxyzine HCl 10 MG tablet 25 mg PO Q6H PRN (Reason: Anxiety) RF: 0 trazodone 50 MG tablet 50 mg PO QHS RF: 0 metoprolol succinate 50 MG tablet 100 mg PO DAILY RF: 0 metformin 500 MG tablet 500 mg PO BID Qty: 60 RF: 0 Primary Care Provider: Romeo Aguilar Referrals: Romeo Aguilar MD [Primary Care Provider] - 1 Week Activity Restrictions/Additional Instructions: Take your blood pressure medications as prescribed. Log your blood plasters twice a day for the next 5 to 7 days and follow-up your primary care physician to decide if you need to make any alterations in your blood pressure medications. Exercise such as walking to help reduce your stress. Disposition Disposition: Home, Self Care
[2021-07-18 15:51] VITALS: BP 137/79; PULSE 85
== END 2021-07-18 16:04 | disposition home or self-care (01) ==
LOC: ED 15:53
PROVIDERS: Emergency Provider Emergency Medicine; PCP Family Medicine
DX: I10 Essential (primary) hypertension (principal); F17.210 Nicotine dependence, cigarettes, uncomplicated; E11.9 Type 2 diabetes mellitus without complications; F32.9 Major depressive disorder, single episode, unspecified; F41.9 Anxiety disorder, unspecified; Z79.84 Long term (current) use of oral hypoglycemic drugs
CPT/HCPCS: 99282

== ENCOUNTER 2021-07-18 19:49 | Emergency (ER) | payer BC, SELFPAY ==
[2021-07-18 19:50] VITALS: BP 172/77; PULSE 107; RESP 18; TEMP 36.5; O2SAT 94; BMI 27.4
--- NOTE | 2021-07-18 20:46 | EKG12_ITS ---
Test Reason : DYSRHYTHMIA Blood Pressure : / mmHG Vent. Rate : 093 BPM Atrial Rate : 093 BPM P-R Int : 134 ms QRS Dur : 082 ms QT Int : 364 ms P-R-T Axes : 066 066 069 degrees QTc Int : 452 ms Normal sinus rhythm Normal ECG Confirmed by SAIRA LEBLANC, YADIRA ([id number]), medical editor JAVID JAMES ([id number]) on 07/21/2021 1:38:54 PM Referred By: PL Confirmed By:VINICIO CHÁVEZ MD
[2021-07-18 20:58] VITALS: BP 138/75
[2021-07-18 21:05] VITALS: BP 138/75; BP 155/86; BP 160/87; PULSE 100; PULSE 102; PULSE 96
--- NOTE | 2021-07-18 21:22 | CT_ITS ---
STUDY: CT BRAIN WITHOUT CONTRAST REASON FOR EXAM: Female, 46 years old. Headache RADIATION DOSAGE (If Supplied By Facility): CTDIvol = ( 44.99 ) mGy, DLP = ( 745.49 ) mGycm TECHNIQUE: Transaxial CT imaging of the brain was performed without administration of intravenous contrast material. Individualized dose optimization techniques were used for this CT. COMPARISON: 08/02/2017 FINDINGS: Normal soft tissue structures. Normal calvarium. Normal size ventricles and extra-axial spaces for the patient''s age. Normal white matter tracts of the cerebral hemispheres. Normal basal ganglia and thalami. Normal brainstem. Normal cerebellum. There is no intracranial hemorrhage. There are no findings of an acute ischemic infarction. Normal visualized paranasal sinuses. CT/Brain/Head without Contrast IMPRESSION: Normal unenhanced CT scan of the brain. Electronically Signed: Calvin Bhardwaj MD at 22:26 EDT Tel , Service support ,
--- NOTE | 2021-07-18 21:25 | RAD_ITS ---
STUDY: X-RAY CHEST REASON FOR EXAM: Female, 46 years old. Syncope TECHNIQUE: Portable, upright, AP chest radiograph COMPARISON: 04/14/2021 FINDINGS: The lungs are clear and expanded. There is no demonstrated pleural abnormality. Normal size heart. Normal mediastinum and aviva. Normal visualized pulmonary arteries. Normal visualized aortic arch and descending thoracic aorta. Normal visualized thoracic spine. Normal visualized ribs, clavicles, and shoulders. There is no demonstrated abnormality of the visualized soft tissue structures of the upper abdomen. RAD/Chest 1 View (Portable) IMPRESSION: No acute abnormal cardiopulmonary finding. Electronically Signed: Calvin Bhardwaj MD at 22:22 EDT Tel , Service support ,
[2021-07-18 21:30] LABS: Absolute Lymphocyte Count 3.12 X10^3/uL (0.83-4.51); Absolute Neutrophil Count 3.7 X10^3/uL (2.0-7.7); Basophil# 0.04 X10^3/uL; Basophil% 0.5 % (0-1); Eosinophil# 0.22 X10^3/uL; Eosinophils% 2.8 % (0-5); Hemoglobin 11.8 g/dL (12.0-15.0); Lymphocyte # 3.12 X10^3/ul (0.83-4.51); Lymphocyte % 39.7 % (19-41); Mean Corp Hgb Conc 33.7 g/dL (32-36); Mean Corpuscular Hgb 32.1 pg (27.0-32.0); Mean Corpuscular Volume 95.1 fL (81-99); Mean Platelet Vol. 10.6 fl (6.2-12.0); Monocyte# 0.77 X10^3/uL; Monocyte% 9.8 % (0-10); NRBC Flagged by Analyzer 0 % (0-5); Neutrophil # 3.69 X10^3/uL (2.7-7.7); Neutrophil % 46.9 % (47-70); Platelet Count 307 K/mm3 (150-450); RBC Distribution Width CV 12.2 % (11.6-14.6); RBC Distribution Width SD 42.7 fl (35.1-43.9); Red Blood Count 3.68 M/mm3 (4.2-5.4); White Blood Count 7.9 K/mm3 (4.4-11.0)
[2021-07-18 21:42] LABS: ALB/GLOB Ratio 0.9 RATIO (0.9-2.4); AST(SGOT) 15 U/L (15-37); Alanine Aminotransfer ALT/SGPT 23 U/L (13-56); Albumin, Serum 3.6 g/dL (3.2-5.0); Alkaline Phosphatase 76 U/L (45-117); Anion Gap 6 (5-15); BUN 13 mg/dL (7-18); BUN/Creat Ratio 17.2 RATIO (10-20); Calcium,Total 8.5 mg/dL (8.5-10.1); Chloride 108 mmol/L (98-107); Creatinine, Serum 0.76 mg/dL (0.55-1.02); EST Glomerular Filtration Rate 88 mL/min (>60); Est Glom Filt Rate - Afr Amer 107 mL/min (>60); Estimated Creatinine Clearance 81.57 ml/min; Globulin 3.9 g/dL (2.2-4.2); Glucose 165 mg/dL (74-106); Potassium 3.4 mmol/L (3.5-5.1); Protein, Total 7.5 g/dL (6.4-8.2); Sodium Level 139 mmol/L (136-145); Troponin-I HS 4 pg/mL (3.0-54.0)
[2021-07-18 21:47] LABS: Bacteria 0 SEEN /hpf (None Seen); Mucous, Urine 0 SEEN /hpf (<or=2+); Red Blood Cells-Urine 0 SEEN /hpf (0-5); White Blood Cells 0 SEEN /hpf (0-5)
[2021-07-18 21:49] LABS: Color, Urine Yellow (Yellow); Glucose, Dipstick 50 mg/dl (Normal); Ketone-Dipstick Negative (Negative); Leukocyte Esterase-Dipstick Negative /ul (Negative); Nitrite-Dipstick Negative (Negative); Occult Blood-Urine Negative /ul (Negative); Protein-Dipstick Negative (Negative); Urine Bilirubin Dipstick Negative (Negative); Urine Clarity Sl. Cloudy (Clear); Urine Urobilinogen Normal (Normal)
[2021-07-18 21:57] LABS: Squamous Epithelial Cells - UA 0-5 SEEN /hpf (5-10)
[2021-07-18 21:58] LABS: Amorphous Sediment 1+ URATE
[2021-07-18] MEDS: 0.9% Normal Saline 1,000 ML 1000 ML IV (23:15)
[2021-07-18 23:16] VITALS: BP 162/78; PULSE 86; RESP 18; O2SAT 99
--- NOTE | 2021-07-18 23:36 | EX.ED.DYSGE1 ---
HPI History of Present Illness Chief Complaint: Syncope Informant: patient Onset/Context/Timing Onset: Today Context: Sudden Onset Timing: Continuous Quality: Lightheaded Location: Generalized Worsened by: Nothing Relieved by: Nothing Narrative Narrative: Patient presents with a syncopal episode that occurred tonight. Patient states she was seen here earlier today for elevated blood pressure. Patient states that she was at home and she started to feel lightheaded. Patient felt like she was having numbness and tingling all over. Patient passed out for less than 1 minute. Patient admits to a cough. Patient admits to some chest pain. Patient admits to nausea but denies any vomiting. Patient admits to mild headache. [facility] Medical History Diabetes HTN (hypertension) Home Medications amlodipine 10 mg PO DAILY 09/04/18 [History Last Taken Unknown] lisinopril 40 mg PO DAILY 09/04/18 [History Last Taken Unknown] paroxetine HCl 40 mg PO DAILY 09/04/18 [History Last Taken Unknown] hydroxyzine HCl 25 mg PO Q6H PRN 07/25/19 [History Last Taken Unknown] metformin 500 mg PO BID #60 tab 07/25/19 [Rx Last Taken Unknown] metoprolol succinate 100 mg PO DAILY 07/25/19 [History Last Taken Unknown] trazodone 50 mg PO QHS 07/25/19 [History Last Taken Unknown] buspirone 7.5 mg tablet 7.5 mg PO DAILY tablet 02/23/21 [History Last Taken Unknown] spironolactone 25 mg tablet 25 mg PO DAILY tablet 02/23/21 [History Last Taken Unknown] Allergy/AdvReac Type Severity Reaction Status Date / Time No Known Allergies Allergy Verified 07/18/21 19:50 Family History Grandfather CVA (cerebral vascular accident) Diabetes Mother Cancer Father Hypertension Grandmother Hypertension Diabetes Surgical History H/O tooth extraction History of cholecystectomy plantar fasciitis release Social History Smoking Status: Current every day smoker tobacco type: cigarettes alcohol intake: current alcohol intake frequency: a few times a month Alcohol type: hard liquor ROS ROS ED Constitutional Constitutional ED: Reports chills and subjective; Denies fever(s) Eyes Eyes: Denies blurry vision or change in vision ENT ENT ED: Denies rhinorrhea or sore throat Cardiovascular Cardiovascular: Reports chest pain; Denies palpitations Respiratory/Chest Respiratory/Chest: Reports cough; Denies dyspnea Gastrointestinal Gastrointestinal: Reports nausea; Denies vomiting Genitourinary Genitourinary ED: Denies dysuria or hematuria Musculoskeletal Musculoskeletal: Denies back pain or neck pain Integumentary Denies abscess or rash Neurologic Neurologic: Reports headache(s); Denies weakness Allergic/Immunologic Allergic/Immunologic ED: Denies mouth swelling or urticaria EXAM Physical Exam Const Vital Signs: 07/18/21 19:50 07/18/21 20:58 07/18/21 21:00 Temperature 97.7 F L Temperature Source Temporal Pulse Rate 107 H Pulse Rate [Lying] Pulse Rate [Sitting] Pulse Rate [Standing] Respiratory Rate 18 Respiratory Effort Normal Respiratory Pattern Normal Blood Pressure 172/77 H 138/75 H Blood Pressure [Lying] Blood Pressure [Sitting] Blood Pressure [Standing] Blood Pressure Mean 108 96 Blood Pressure Mean [Lying] Blood Pressure Mean [Sitting] Blood Pressure Mean [Standing] Pulse Ox 94 Oxygen Delivery Method Room Air Room Air 07/18/21 21:05 07/18/21 23:16 07/18/21 23:57 Temperature Temperature Source Pulse Rate 86 80 Pulse Rate [Lying] 96 Pulse Rate [Sitting] 100 Pulse Rate [Standing] 102 H Respiratory Rate 18 16 Respiratory Effort Respiratory Pattern Blood Pressure 162/78 H 137/77 H Blood Pressure [Lying] 138/75 H Blood Pressure [Sitting] 155/86 H Blood Pressure [Standing] 160/87 H Blood Pressure Mean 106 Blood Pressure Mean [Lying] 96 Blood Pressure Mean [Sitting] 109 Blood Pressure Mean [Standing] 111 Pulse Ox 99 98 Oxygen Delivery Method Positive well nourished and well developed General Appearance ED: well developed HEENT Reports moist mucous membranes Neck supple and no JVD Resp normal respiratory effort and clear to auscultation bilaterally Cardio regular rate, regular rhythm and no murmurs GI normal to inspection, nondistended, normoactive bowel sounds and non-tender Palpation: soft Extremity normal to inspection General Extremety ED: Negative for edema or tenderness General Extremity: Negative for edema Neuro oriented x3, CN's II-XII intact bilaterally and no sensory deficits noted Sensorium / Orientation: alert Motor Exam: strength 5/5 throughout Psych mental status grossly normal Skin no rashes or lesions noted MDM MDM MDM Narrative Medical decision making narrative: EKG was obtained. On my interpretation, it showed a normal sinus rhythm with a rate of 93. SC interval, QRS interval, and QTc intervals were all normal. Ovid was normal. There are no acute ST or T wave changes. Portable 1 view chest x-ray was obtained. On my interpretation, lung benton are clear. There is normal cardiac silhouette. Bony thorax is normal. There is no acute process noted. Radiologist also interpreted the x-ray and agrees. CT scan of the brain was obtained. There is no acute intracranial abnormality. This was interpreted by the radiologist and reviewed by myself. CBC, comprehensive metabolic profile, high-sensitivity troponin, and urinalysis were obtained and were all within normal limits. Patient is feeling better on reevaluation. Patient was advised of her findings. Patient was instructed to follow-up with her primary care physician in 3 to 5 days. Patient understood and was agreeable with the plan. All questions were answered. Lab Data Attestation: I reviewed the patient's lab results. Labs: Laboratory Results - last 24 hr 07/18/21 07/18/21 07/18/21 20:08 20:08 21:43 WBC 7.9 RBC 3.68 L Hgb 11.8 L Hct 35.0 L MCV 95.1 MCH 32.1 H MCHC 33.7 RDW Std Deviation 42.7 RDW Coeff of Braxton 12.2 Plt Count 307 MPV 10.6 Immature Gran % (Auto) 0.300 Neut % (Auto) 46.9 L Lymph % (Auto) 39.7 [place] % (Auto) 9.8 Eos % (Auto) 2.8 Baso % (Auto) 0.5 Absolute Neuts (auto) 3.7 Absolute Lymphs (auto) 3.12 Nucleated RBC % 0 Sodium 139 Potassium 3.4 L Chloride 108 H Carbon Dioxide 25.0 Anion Gap 6 BUN 13 Creatinine 0.76 Estim Creat Clear Calc 81.57 Est GFR (MDRD) Af Amer 107 Est GFR (MDRD) Non-Af 88 BUN/Creatinine Ratio 17.2 Glucose 165 H Calcium 8.5 Total Bilirubin 0.20 AST 15 ALT 23 Alkaline Phosphatase 76 Troponin I High Sens 4 Total Protein 7.5 Albumin 3.6 Globulin 3.9 Albumin/Globulin Ratio 0.9 Urine Color Yellow Urine Clarity Sl. Cloudy Urine pH 6.0 Ur Specific [place] 1.010 Urine Protein Negative Urine Glucose (UA) 50 H Urine Ketones Negative Urine Occult Blood Negative Urine Nitrite Negative Urine Bilirubin Negative Urine Urobilinogen Normal Ur Leukocyte Esterase Negative Urine RBC 0 SEEN Urine WBC 0 SEEN Ur Squamous Epith Cells 0-5 SEEN Amorphous Sediment 1+ URATE Urine Bacteria 0 SEEN Urine Mucus 0 SEEN Radiography Diagnostic Testing: Radiology Impression Brain CT 07/18/21 21:22 IMPRESSION: Normal unenhanced CT scan of the brain. Electronically Signed: Calvin Bhardwaj MD at 22:26 EDT Tel , Service support , Chest X-Ray 07/18/21 21:25 IMPRESSION: No acute abnormal cardiopulmonary finding. Electronically Signed: Calvin Bhardwaj MD at 22:22 EDT Tel , Service support , Discharge Plan Triage Chief Complaint: Syncope ED Provider: David Jacobs Dx/Rx/DC Orders Clinical Impression: Syncope and collapse Instructions: ED Fainting, Uncertain Cause Prescriptions: No Action buspirone 7.5 mg tablet 7.5 mg PO DAILY RF: 0 spironolactone 25 mg tablet 25 mg PO DAILY RF: 0 paroxetine HCl 10 MG tablet 40 mg PO DAILY RF: 0 amlodipine 2.5 MG tablet 10 mg PO DAILY RF: 0 lisinopril 20 MG tablet 40 mg PO DAILY RF: 0 hydroxyzine HCl 10 MG tablet 25 mg PO Q6H PRN (Reason: Anxiety) RF: 0 trazodone 50 MG tablet 50 mg PO QHS RF: 0 metoprolol succinate 50 MG tablet 100 mg PO DAILY RF: 0 metformin 500 MG tablet 500 mg PO BID Qty: 60 RF: 0 Primary Care Provider: Romeo Aguilar Referrals: Romeo Aguilar MD [Primary Care Provider] - 3-5 Days Disposition Disposition: Home, Self Care Discharge Date/Time: 07/18/21 23:58
[2021-07-18 23:57] VITALS: BP 137/77; PULSE 80; RESP 16; O2SAT 98
== END 2021-07-18 23:58 | disposition home or self-care (01) ==
PROVIDERS: Emergency Provider Emergency Medicine; PCP Family Medicine
DX: R55 Syncope and collapse (principal); E11.9 Type 2 diabetes mellitus without complications; I10 Essential (primary) hypertension; F17.210 Nicotine dependence, cigarettes, uncomplicated; Z79.84 Long term (current) use of oral hypoglycemic drugs
CPT/HCPCS: 70450; 71045; 80053; 81001; 84484; 85025; 93005; 99284; J7030; A4216

== ENCOUNTER 2022-02-22 12:12 | Emergency (ER) | payer OTHER, SELFPAY ==
[2022-02-22 12:12] VITALS: BP 169/80; PULSE 92; RESP 18; TEMP 35.7; O2SAT 97; BMI 26.3
--- NOTE | 2022-02-22 12:17 | EDS_ITS ---
HPI History of Present Illness Chief Complaint: General Illness Informant: patient Onset/Context/Timing Onset: Yesterday Context: Sudden Onset Timing: Continuous Quality: Squeezing Location: Left chest Worsened by: Coughing Relieved by: Nothing Narrative Narrative: Patient presents with chest tightness that began yesterday. Patient states it began rather suddenly. Patient describes it as a squeezing sensation. Patient states it waxes and wanes. Patient states it is mainly over her left chest and into her back. Patient states it is worse with coughing. Patient states she is coughing up some clear sputum. Patient denies any fevers or chills. Patient admits to some shortness of breath. Patient admits to nausea but denies any vomiting. Patient states she was driving in a car yesterday but was able to get out frequently. Patient states it was not a prolonged car ride. Patient has a history of hypertension and diabetes. Patient is a smoker. Patient denies any other cardiac or PE risk factors. [facility] Medical History (Updated 02/22/22 @ 14:[address] David Jacobs, ) Anxiety Depression Diabetes HTN (hypertension) Home Medications amlodipine 10 mg PO DAILY 09/04/18 [History Last Taken Unknown] lisinopril 40 mg PO DAILY 09/04/18 [History Last Taken Unknown] paroxetine HCl 40 mg PO DAILY 09/04/18 [History Last Taken Unknown] hydroxyzine HCl 25 mg PO Q8H PRN 07/25/19 [History Last Taken Unknown] metformin 500 mg PO BID #60 tab 07/25/19 [Rx Last Taken Unknown] buspirone 7.5 mg tablet 15 mg PO BID tablet 02/23/21 [History Last Taken Unknown] spironolactone 25 mg tablet 25 mg PO DAILY tablet 02/23/21 [History Last Taken Unknown] montelukast 10 mg PO QHS 02/22/22 [History Last Taken Unknown] multivitamin 1 tab PO DAILY 02/22/22 [History Last Taken Unknown] omeprazole 20 mg PO DAILY 02/22/22 [History Last Taken Unknown] Allergy/AdvReac Type Severity Reaction Status Date / Time No Known Allergies Allergy Verified 02/22/22 12:14 Family History Grandfather CVA (cerebral vascular accident) Diabetes Mother Cancer Father Hypertension Grandmother Hypertension Diabetes Surgical History H/O tooth extraction History of cholecystectomy plantar fasciitis release Social History Smoking Status: Current every day smoker tobacco type: cigarettes alcohol intake: current alcohol intake frequency: a few times a month Alcohol type: hard liquor ROS ROS ED Constitutional Constitutional ED: Denies chills or fever(s) Eyes Eyes: Denies blurry vision or change in vision ENT ENT ED: Denies rhinorrhea or sore throat Cardiovascular Cardiovascular: Reports chest pain; Denies palpitations Respiratory/Chest Respiratory/Chest: Reports cough, dyspnea and sputum Gastrointestinal Gastrointestinal: Reports nausea; Denies vomiting Genitourinary Genitourinary ED: Denies dysuria or hematuria Musculoskeletal Musculoskeletal: Reports back pain; Denies neck pain Integumentary Denies abscess or rash Neurologic Neurologic: Denies headache(s) or weakness Allergic/Immunologic Allergic/Immunologic ED: Denies mouth swelling or urticaria EXAM Physical Exam Const Vital Signs: 02/22/22 12:12 02/22/22 12:30 02/22/22 12:44 Temperature 96.2 F L 96.2 F L Temperature Source Temporal Temporal Pulse Rate 92 92 Respiratory Rate 18 18 Respiratory Effort Normal Non-Labored Respiratory Pattern Normal Blood Pressure 169/80 H 169/80 H Blood Pressure Mean 109 109 Pulse Ox 97 97 Oxygen Delivery Method Room Air Room Air Room Air 02/22/22 12:56 Temperature Temperature Source Pulse Rate 69 Respiratory Rate Respiratory Effort Respiratory Pattern Blood Pressure 136/77 H Blood Pressure Mean Pulse Ox Oxygen Delivery Method Positive well nourished and well developed General Appearance ED: well developed HEENT Reports moist mucous membranes Neck supple and no JVD Chest Wall Chest Narrative: There is tenderness over the substernal area. This is different than the pain that made her come to the emergency department. There is no edema or ecchymosis. There is no bony crepitance or step-off. Resp normal respiratory effort and clear to auscultation bilaterally Cardio regular rate, regular rhythm and no murmurs GI normal to inspection, nondistended, normoactive bowel sounds and non-tender Palpation: soft Extremity normal to inspection General Extremety ED: Negative for edema or tenderness General Extremity: Negative for edema Neuro oriented x3, CN's II-XII intact bilaterally and no sensory deficits noted Sensorium / Orientation: alert Motor Exam: strength 5/5 throughout Psych mental status grossly normal Skin no rashes or lesions noted MDM MDM MDM Narrative Medical decision making narrative: EKG was obtained. On my interpretation, it showed a normal sinus rhythm with a rate of 69. IA interval, QRS interval, and QTc intervals were all normal. [place] was normal. There are no acute ST or T wave changes. Portable 1 view chest x-ray was obtained. On my interpretation, lung [place] are clear. There is normal cardiac silhouette. Bony thorax is normal. There is no acute process noted. Radiologist also interpreted the x- ray and agrees. CBC was within normal limits. D-dimer was normal. Basic metabolic profile showed a slightly elevated glucose of 207. High-sensitivity troponin was less than 3. Patient has a HEART score of 2. Patient was advised that this is low risk for acute cardiac event. Patient was instructed to follow-up with her primary care physician in 3 to 5 days. Patient understood and was agreeable with the plan. All questions were answered. Lab Data Attestation: I reviewed the patient's lab results. Labs: Laboratory Results - last 24 hr 02/22/22 02/22/22 02/22/22 12:45 12:45 12:45 WBC 6.6 RBC 4.50 Hgb 13.8 Hct 40.0 MCV 88.9 MCH 30.7 MCHC 34.5 RDW Std Deviation 39.8 RDW Coeff of Braxton 12.2 Plt Count 311 MPV 10.3 Immature Gran % (Auto) 0.600 Neut % (Auto) 49.0 Lymph % (Auto) 34.9 [place] % (Auto) 10.2 H Eos % (Auto) 4.7 Baso % (Auto) 0.6 Absolute Neuts (auto) 3.2 Absolute Lymphs (auto) 2.29 Nucleated RBC % 0 D-Dimer Quant (PE/DVT) < 0.27 L Sodium 135 L Potassium 3.6 Chloride 103 Carbon Dioxide 27.0 Anion Gap 5 BUN 9 Creatinine 0.73 Estim Creat Clear Calc 84.92 Est GFR (MDRD) Af Amer 111 Est GFR (MDRD) Non-Af 91 BUN/Creatinine Ratio 12.3 Glucose 207 H Calcium 9.4 Troponin I High Sens < 3 L Radiography Chest X-Ray - ED: 1 View, Read by ED Physician, Read by Radiologist and No Acute Disease Diagnostic Testing: Clinical Impression(s) from Imaging Studies Chest X-Ray 02/22/22 12:30 IMPRESSION: No radiographic evidence of acute cardiopulmonary disease. at 1312 Reported and signed by: Diana Floyd MD Electronically Signed: Diana Floyd MD at 13:11 EDT , EKG Initial EKG: Attestation: I personally reviewed and interpreted this EKG as follows: Interpretation: Sinus Rhythm (69) and No Acute Injury Pattern Discharge Plan Triage Chief Complaint: General Illness ED Provider: David Jacobs Dx/Rx/DC Orders Clinical Impression: Chest pain of uncertain etiology, HTN (hypertension), Type 2 diabetes mellitus, Tobacco use disorder Instructions: ED Chest Pain, Uncertain Cause Prescriptions: No Action buspirone 7.5 mg tablet 15 mg PO BID RF: 0 spironolactone 25 mg tablet 25 mg PO DAILY RF: 0 paroxetine HCl 10 MG tablet 40 mg PO DAILY RF: 0 amlodipine 2.5 MG tablet 10 mg PO DAILY RF: 0 lisinopril 20 MG tablet 40 mg PO DAILY RF: 0 hydroxyzine HCl 10 MG tablet 25 mg PO Q8H PRN (Reason: Anxiety) RF: 0 metformin 500 MG tablet 500 mg PO BID Qty: 60 RF: 0 multivitamin Tablet 1 tab PO DAILY RF: 0 omeprazole 20 mg capsule,delayed release(DR/EC) 20 mg PO DAILY RF: 0 montelukast 10 mg tablet 10 mg PO QHS RF: 0 Primary Care Provider: Calvin Waldrop Referrals: Calvin Waldrop [Primary Care Provider] - 3-5 Days Disposition Disposition: Home, Self Care
[2022-02-22 12:30] VITALS: BP 169/80; PULSE 92; RESP 18; TEMP 35.7; O2SAT 97
--- NOTE | 2022-02-22 12:30 | RAD_ITS ---
HISTORY: chest pain. TECHNIQUE: XR Chest 1 View. # of images incl. paperwork: 1. COMPARISON: 03/18/2021. FINDINGS: CARDIOMEDIASTINAL STRUCTURES: Cardiac silhouette not enlarged. Mediastinal contour unremarkable. LUNGS: Radiographically clear. PLEURA: No pleural effusion or pneumothorax. OSSEOUS STRUCTURES: Unremarkable. RAD/Chest 1 View (Portable) IMPRESSION: No radiographic evidence of acute cardiopulmonary disease. at 1312 Reported and signed by: Diana Floyd MD Electronically Signed: Diana Floyd MD at 13:11 EDT ,
--- NOTE | 2022-02-22 12:30 | EKG12_ITS ---
Test Reason : Blood Pressure : / mmHG Vent. Rate : 069 BPM Atrial Rate : 069 BPM P-R Int : 116 ms QRS Dur : 088 ms QT Int : 388 ms P-R-T Axes : -14 057 053 degrees QTc Int : 415 ms Normal sinus rhythm Normal ECG Confirmed by STEFFANY LEBLANC, IFRAH ([id number]), book editor JAVID JAMES ([id number]) on 02/24/2022 10:38:45 AM Referred By: EULOGIO Confirmed By:IFRAH JETER MD
[2022-02-22 12:56] VITALS: BP 136/77; PULSE 69
[2022-02-22] MEDS: Nitroglycerin SL (ED/IMG/CATH) 0.4 MG TABLET SL (12:56)
[2022-02-22] MEDS: Aspirin 81 MG TAB.CHEW 324 MG PO (12:56)
[2022-02-22 13:09] LABS: Absolute Lymphocyte Count 2.29 X10^3/uL (0.83-4.51); Absolute Neutrophil Count 3.2 X10^3/uL (2.0-7.7); Basophil# 0.04 X10^3/uL; Basophil% 0.6 % (0-1); Eosinophil# 0.31 X10^3/uL; Eosinophils% 4.7 % (0-5); Hemoglobin 13.8 g/dL (12.0-15.0); Lymphocyte # 2.29 X10^3/ul (0.83-4.51); Lymphocyte % 34.9 % (19-41); Mean Corp Hgb Conc 34.5 g/dL (32-36); Mean Corpuscular Hgb 30.7 pg (27.0-32.0); Mean Corpuscular Volume 88.9 fL (81-99); Mean Platelet Vol. 10.3 fl (6.2-12.0); Monocyte# 0.67 X10^3/uL; Monocyte% 10.2 % (0-10); NRBC Flagged by Analyzer 0 % (0-5); Neutrophil # 3.22 X10^3/uL (2.7-7.7); Platelet Count 311 K/mm3 (150-450); RBC Distribution Width CV 12.2 % (11.6-14.6); RBC Distribution Width SD 39.8 fl (35.1-43.9); White Blood Count 6.6 K/mm3 (4.4-11.0)
[2022-02-22 13:19] LABS: D-Dimer Quantitative (DVT/PE) < 0.27 FEU/ug/m (0.27-0.49)
[2022-02-22 13:24] LABS: Anion Gap 5 (5-15); BUN 9 mg/dL (7-18); BUN/Creat Ratio 12.3 RATIO (10-20); Calcium,Total 9.4 mg/dL (8.5-10.1); Chloride 103 mmol/L (98-107); Creatinine, Serum 0.73 mg/dL (0.55-1.02); EST Glomerular Filtration Rate 91 mL/min (>60); Est Glom Filt Rate - Afr Amer 111 mL/min (>60); Estimated Creatinine Clearance 84.92 ml/min; Glucose 207 mg/dL (74-106); Potassium 3.6 mmol/L (3.5-5.1); Sodium Level 135 mmol/L (136-145); Troponin-I HS < 3 pg/mL (3.0-54.0)
[2022-02-22 15:02] VITALS: BP 120/84; PULSE 71; RESP 14; O2SAT 96
== END 2022-02-22 15:10 | disposition home or self-care (01) ==
PROVIDERS: Emergency Provider Emergency Medicine; PCP Family Medicine; Visit Provider Emergency Medicine
DX: R07.9 Chest pain, unspecified (principal); E11.9 Type 2 diabetes mellitus without complications; R06.02 Shortness of breath; I10 Essential (primary) hypertension; R11.0 Nausea; F41.9 Anxiety disorder, unspecified; F32.A Depression, unspecified; F17.210 Nicotine dependence, cigarettes, uncomplicated
CPT/HCPCS: 71045; 80048; 84484; 85025; 85379; 93005; 99285; A4216

== ENCOUNTER 2022-09-05 21:10 | Emergency (ER) | payer BC, SELFPAY ==
[2022-09-05 21:11] VITALS: BP 157/90; PULSE 110; RESP 18; TEMP 36.7; O2SAT 97; BMI 27.5
--- NOTE | 2022-09-05 21:41 | CT_ITS ---
STUDY: CT BRAIN WITHOUT CONTRAST REASON FOR EXAM: Female, 47 years old. seizure RADIATION DOSAGE (If Supplied By Facility): CTDIvol = ( 44.99 ) mGy, DLP = ( 762.36 ) mGycm TECHNIQUE: Transaxial CT imaging of the brain was performed without administration of intravenous contrast material. Individualized dose optimization techniques were used for this CT. COMPARISON: 07/18/2021. FINDINGS: Normal soft tissue structures. Normal calvarium. Normal size ventricles and extra-axial spaces for the patient''s age. Normal white matter tracts of the cerebral hemispheres. Normal basal ganglia and thalami. Normal brainstem. Normal cerebellum. There is no intracranial hemorrhage. There are no findings of an acute ischemic infarction. Mucosal thickening in the ethmoid and left maxillary sinuses. CT/Brain/Head without Contrast IMPRESSION: No acute findings. Mild chronic sinusitis. Electronically Signed: Pauline Pereira MD at 22:39 EDT Reading Location ID and State: [id number] / Tel , Service support ,
--- NOTE | 2022-09-05 21:41 | EKG12_ITS ---
Test Reason : DYSRHYTHMIA Blood Pressure : / mmHG Vent. Rate : 100 BPM Atrial Rate : 100 BPM P-R Int : 138 ms QRS Dur : 078 ms QT Int : 348 ms P-R-T Axes : 058 051 067 degrees QTc Int : 448 ms Normal sinus rhythm Normal ECG Confirmed by STEFFANY LEBLANC, IFRAH ([id number]), telegraph editor JAVID JAMES ([id number]) on 09/07/2022 9:32:58 AM Referred By: DUARTE Confirmed By:IFRAH JETER MD
--- NOTE | 2022-09-05 21:42 | EX.ED.DYSGE1 ---
HPI History of Present Illness Chief Complaint: Seizure Detail of Chief Complaint: Possible seizure Informant: patient and parent Onset/Context/Timing Onset: Today Context: Sudden Onset Timing: Intermittent Current Severity: Gone Maximum Severity: Mild Narrative Narrative: 47-year-old female history of hypertension, diabetes, depression and anxiety. Father is with her. Anjali was a family member's birthday. He went out to eat. Patient had a couple drinks. At home they thought she was intoxicated and got a passed out. And they were questioning possible seizure activity with tremors of her arms and legs. No fall or trauma. No recent head trauma. She denies any complaints. Prior similar symptoms: No Recent Illness/Hospitalization: No PFSH PFSH Medical History Anxiety Depression Diabetes HTN (hypertension) Home Medications paroxetine HCl 40 mg tablet (Paxil) 40 mg PO DAILY 09/05/22 [History Last Taken Unknown] Allergy/AdvReac Type Severity Reaction Status Date / Time No Known Allergies Allergy Verified 09/05/22 21:20 Family History Grandfather CVA (cerebral vascular accident) Diabetes Mother Cancer Father Hypertension Grandmother Hypertension Diabetes Surgical History H/O tooth extraction History of cholecystectomy plantar fasciitis release Social History Smoking Status: Current every day smoker tobacco type: cigarettes alcohol intake: current alcohol intake frequency: a few times a month Alcohol type: hard liquor ROS ROS ED ROS Narrative Denies recent illness. Review of Systems ROS Unobtainable: Denies due to encephalopathy Constitutional Constitutional ED: Denies chills or fever(s) Eyes Eyes: Denies blurry vision ENT ENT ED: Denies ear pain Cardiovascular Cardiovascular: Denies chest pain Respiratory/Chest Respiratory/Chest: Denies cough or dyspnea Gastrointestinal Gastrointestinal: Denies abdominal pain Genitourinary Genitourinary ED: Denies dysuria or hematuria Musculoskeletal Musculoskeletal: Denies arthralgias Integumentary Denies abscess Neurologic Neurologic: Denies headache(s) Psychiatric Psychiatric: Reports anxiety and depression Endocrine Endocrinology: Denies cold intolerance Hematologic/Lymphatic Hematologic/Lymphatic: Reports none Allergic/Immunologic Allergic/Immunologic ED: Denies mouth swelling or tongue swelling EXAM Physical Exam Narrative Exam Narrative: 47-year-old female no acute distress. Vital signs stable afebrile. Does not look septic or toxic. Sitting upright in bed. Dad at bedside. H EENT exam unremarkable. Pupils are reactive light. No signs of trauma. Neck nontender. Lungs clear to auscultation bilaterally. Heart regular rhythm rate about 105 no murmur. Chest were nontender. Abdomen soft nontender. Moving all 4 extremities. 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 Dorsi plantarflexion intact. Neurologically she appears intoxicated but awake alert. Answering questions following commands. No focal motor deficits. Const Vital Signs: 09/05/22 21:11 Temperature 98.0 F Temperature Source Temporal Pulse Rate 110 H Respiratory Rate 18 Blood Pressure 157/90 H Blood Pressure Mean 112 Pulse Ox 97 Oxygen Delivery Method Room Air Positive well nourished and well developed; Negative for obese, cachectic, contractures or unkempt General Appearance ED: well developed and NAD; Negative for unkempt, cachectic, contractures, cyanotic or diaphoretic Nutritional Appearance: Negative for cachectic or obese HEENT Reports moist mucous membranes; Denies dry mucous membranes Negative for trauma or tenderness Mouth ED: No dry mucous membranes Mouth: No dry mucous membranes Eyes PERRL and EOMs intact bilaterally General Eye ED: Negative for pale conjunctiva, scleral icterus or other Neck no lymphadenopathy, supple and no JVD General: Negative for tenderness Lymph Lymphatic: Negative for other Chest Wall inspection of chest normal and palpation of chest normal Chest: Negative for other Resp clear to auscultation bilaterally Effort and Inspection: Negative for retractions Auscultation: Negative for rales, rhonchi or wheezes Cardio regular rhythm, S1 normal heart sound, S2 normal heart sound and no murmurs; Negative for regular rate Rate: tachycardic Rhythm: Negative for abnormal rhythm GI normal to inspection, nondistended, normoactive bowel sounds, non-tender, non-distended and no masses Inspection: Negative for abdominal distention Auscultation: normoactive bowel sounds Palpation: soft and tender Bladder / Kidney Exam: No other Back/Spine no CVA tenderness General Back: Negative for CVA tenderness Cervical Spine: Negative for cervical spine tenderness Thoracic Spine / Upper Back: thoracic spinal tenderness Lumbar Spine / Lower Back: lumbar spinal tenderness Extremity normal to inspection General Extremety ED: Negative for edema or tenderness General Extremity: Negative for edema Neuro oriented x3 and CN's II-XII intact bilaterally Neuro Narrative: Intoxicated. Sensorium / Orientation: alert; Negative for orientation impaired or lethargic Sensory Exam: No sensory level loss detected Motor Exam: strength 5/5 throughout; Negative for general weakness or strength abnormal Psych mental status grossly normal Appearance: Negative for unkempt Attitude: No agitated Mood & Affect: Negative for depressed, anxious or tearful Skin no rashes or lesions noted and no wounds General Skin Exam: elasticity normal Lesions: No lesion noted Rashes: No rashes noted Trauma: Negative for abrasion Wounds: Negative for wounds noted MDM MDM MDM Narrative Medical decision making narrative: 47-year-old female possibly intoxicated. Family thinks possibly may have had a seizure tonight. Could also just been tremors. Her exam is benign. CAT scan and labs pending. She has no seizure history. She has had no recent head trauma. She has had no recent illness. Multiple repeat exams unchanged. Patient's had no seizure activity here. At times her hands all tremor but there is been no tonic-clonic activity. At around 11:15 pm patient is intoxicated. I was called in the room because she thought she was going to potentially have a seizure. She was awake alert and talking the entire time. Patient will be discharged home with her family. Follow-up with her primary care physician. Lab Data Attestation: I reviewed the patient's lab results. Lab results narrative: Is elevateCBC normal. White count of 7.8. H&H of 13.1 and 38. Electrolytes normal. Gap of 10. Normal being creatinine. Glucose 246. She is diabetic. Her alcohol is elevated consistent with acute intoxication her alcohol level is 237. CAT scan of brain shows no acute abnormality. Labs: Laboratory Results - last 24 hr 09/05/22 09/05/22 09/05/22 22:00 22:00 22:00 WBC 7.8 RBC 4.17 L Hgb 13.1 Hct 38.4 MCV 92.1 MCH 31.4 MCHC 34.1 RDW Std Deviation 42.3 RDW Coeff of Braxton 12.7 Plt Count 318 MPV 9.6 Immature Gran % (Auto) 0.400 Neut % (Auto) 48.3 Lymph % (Auto) 39.0 [place] % (Auto) 8.5 Eos % (Auto) 3.3 Baso % (Auto) 0.5 Absolute Neuts (auto) 3.8 Absolute Lymphs (auto) 3.03 Nucleated RBC % 0 Sodium 142 Potassium 3.6 Chloride 105 Carbon Dioxide 27.0 Anion Gap 10 BUN 13 Creatinine 0.78 Estim Creat Clear Calc 78.65 Est GFR (MDRD) Af Amer 103 Est GFR (MDRD) Non-Af 85 BUN/Creatinine Ratio 16.7 Glucose 246 H Calcium 8.8 Ethyl Alcohol 237.0 Radiography Diagnostic Testing: Clinical Impression(s) from Imaging Studies Brain CT 09/05/22 21:41 IMPRESSION: No acute findings. Mild chronic sinusitis. Electronically Signed: Pauline Pereira MD at 22:39 EDT Reading Location ID and State: [id number] / Tel , Service support , Rhythm Strip Rhythm Strip: Sinus Rhythm Rate: 100 Ectopy: None EKG Initial EKG: Attestation: I personally reviewed and interpreted this EKG as follows: Interpretation: Sinus Rhythm and No Acute Injury Pattern Comments: Normal sinus rhythm rate of 100. No acute signs of [place], ischemia or dysrhythmia. Discharge Plan Triage Chief Complaint: Seizure ED Provider: Francisco Colon Dx/Rx/DC Orders Clinical Impression: Acute alcohol intoxication, HTN (hypertension), Hyperglycemia due to diabetes mellitus Instructions: ED Alcohol Intoxication Prescriptions: No Action paroxetine HCl [Paxil] 40 mg Tablet 40 mg PO DAILY Primary Care Provider: Calvin Waldrop Referrals: Calvin Waldrop [[facility]] - 3-5 Days Activity Restrictions/Additional Instructions: Plenty of fluids and rest. No alcohol for the next 48 hours. No driving for the next 24 hours. Follow-up with your primary care physician. They can get an EEG to further evaluate you for possible seizures. Your labs and CAT scan tonight were unremarkable other than your alcohol level that was 237. Disposition Disposition: Home, Self Care
[2022-09-05 22:08] LABS: Absolute Lymphocyte Count 3.03 X10^3/uL (0.83-4.51); Absolute Neutrophil Count 3.8 X10^3/uL (2.0-7.7); Basophil# 0.04 X10^3/uL; Basophil% 0.5 % (0-1); Eosinophil# 0.26 X10^3/uL; Eosinophils% 3.3 % (0-5); Hematocrit 38.4 % (37-47); Hemoglobin 13.1 g/dL (12.0-15.0); Lymphocyte # 3.03 X10^3/ul (0.83-4.51); Mean Corp Hgb Conc 34.1 g/dL (32-36); Mean Corpuscular Hgb 31.4 pg (27.0-32.0); Mean Corpuscular Volume 92.1 fL (81-99); Mean Platelet Vol. 9.6 fl (6.2-12.0); Monocyte# 0.66 X10^3/uL; Monocyte% 8.5 % (0-10); NRBC Flagged by Analyzer 0 % (0-5); Neutrophil # 3.75 X10^3/uL (2.7-7.7); Neutrophil % 48.3 % (47-70); Platelet Count 318 K/mm3 (150-450); RBC Distribution Width CV 12.7 % (11.6-14.6); RBC Distribution Width SD 42.3 fl (35.1-43.9); Red Blood Count 4.17 M/mm3 (4.2-5.4); White Blood Count 7.8 K/mm3 (4.4-11.0)
[2022-09-05 22:24] LABS: Anion Gap 10 (5-15); BUN 13 mg/dL (7-18); BUN/Creat Ratio 16.7 RATIO (10-20); Calcium,Total 8.8 mg/dL (8.5-10.1); Chloride 105 mmol/L (98-107); Creatinine, Serum 0.78 mg/dL (0.55-1.02); EST Glomerular Filtration Rate 85 mL/min (>60); Est Glom Filt Rate - Afr Amer 103 mL/min (>60); Estimated Creatinine Clearance 78.65 ml/min; Glucose 246 mg/dL (74-106); Potassium 3.6 mmol/L (3.5-5.1); Sodium Level 142 mmol/L (136-145)
[2022-09-05 23:51] VITALS: BP 129/68; PULSE 113; PULSE 115; RESP 14; RESP 16; O2SAT 96
== END 2022-09-06 00:02 | disposition home or self-care (01) ==
PROVIDERS: Emergency Provider Emergency Medicine; PCP Family Medicine; Visit Provider Emergency Medicine
DX: F10.129 Alcohol abuse with intoxication, unspecified (principal); E11.65 Type 2 diabetes mellitus with hyperglycemia; F41.9 Anxiety disorder, unspecified; I10 Essential (primary) hypertension; F17.210 Nicotine dependence, cigarettes, uncomplicated; F32.9 Major depressive disorder, single episode, unspecified; Y90.8 Blood alcohol level of 240 mg/100 ml or more; Z79.899 Other long term (current) drug therapy
CPT/HCPCS: 70450; 80048; 82077; 85025; 93005; 99285; A4216

== ENCOUNTER 2022-11-18 09:22 | Inpatient (IN) | payer BC, SELFPAY ==
[2022-11-18] VITALS (16 sets, daily range): BP systolic 130–220; BP diastolic 71–113; PULSE 73–120; RESP 16–23; TEMP 35.5–36.8; O2SAT 93–97; BMI 25.7; BMI 28.5
--- NOTE | 2022-11-18 09:40 | EKG12_ITS ---
Test Reason : CP Blood Pressure : / mmHG Vent. Rate : 105 BPM Atrial Rate : 105 BPM P-R Int : 124 ms QRS Dur : 078 ms QT Int : 346 ms P-R-T Axes : 066 048 064 degrees QTc Int : 457 ms Sinus tachycardia Otherwise normal ECG Confirmed by GAVI LEBLANC, ALINA ([id number]), avid editor JAVID JAMES ([id number]) on 11/19/2022 8:19:15 AM Referred By: RU Confirmed By:ALINA GATICA MD
--- NOTE | 2022-11-18 09:41 | EDS_ITS ---
HPI History of Present Illness Chief Complaint: Chest Pain Detail of Chief Complaint: Chest pain Informant: patient Narrative Narrative: Patient presents with chest pain that started yesterday. She describes some retrosternal chest pressure and discomfort. This morning she noticed that she still had the chest discomfort and had some discomfort in her left shoulder and her left arm feels tingly. She complains of nausea but she is had no vomiting. Patient has no heart history. No family history of heart disease. She is a smoker. Patient has history of hypertension but did not take her blood pressure medicine this morning. Patient tells me normally her systolic is around 140. Patient denies recent travel or surgery. No history of PE or DVT. Currently rates her pain a 7 out of 10. Prior Similar Symptoms: No PFSH PFSH Medical History Acute lumbar myofascial strain Anxiety Depression Diabetes HTN (hypertension) Strain of left hip Home Medications paroxetine HCl 40 mg tablet (Paxil) 40 mg PO DAILY 09/05/22 [History Last Taken Unknown] lisinopril 20 mg tablet ea PO 10/31/22 [History Last Taken Unknown] metformin 500 mg tablet ea PO 10/31/22 [History Last Taken Unknown] metoprolol succinate 50 mg tablet,extended release 24 hr ea PO 10/31/22 [History Last Taken Unknown] Allergy/AdvReac Type Severity Reaction Status Date / Time No Known Allergies Allergy Verified 11/18/22 09:24 Family History Grandfather CVA (cerebral vascular accident) Diabetes Mother Cancer Father Hypertension Grandmother Hypertension Diabetes Surgical History H/O tooth extraction History of cholecystectomy plantar fasciitis release Social History Smoking Status: Current every day smoker tobacco type: cigarettes alcohol intake: current alcohol intake frequency: a few times a month Alcohol type: hard liquor ROS ROS ED Review of Systems ROS Unobtainable: other Constitutional Constitutional ED: Reports lethargy; Denies chills, fever(s), sweats or weight loss Eyes Eyes: Denies blurry vision, change in vision or diplopia ENT ENT ED: Denies rhinorrhea or sore throat Cardiovascular Cardiovascular: Reports chest pain; Denies orthopnea or racing heartbeat Respiratory/Chest Respiratory/Chest: Denies cough, dyspnea, dyspnea on exertion, orthopnea or sputum Gastrointestinal Gastrointestinal: Reports nausea; Denies abdominal pain, diarrhea or vomiting Genitourinary Genitourinary ED: Denies dysuria, hematuria or urinary frequency Musculoskeletal Musculoskeletal: Denies arthralgias, back pain, myalgias or neck pain Integumentary Denies abscess, Abrasions or rash Neurologic Neurologic: Denies headache(s) or weakness Psychiatric Psychiatric: Denies anxiety, depression or suicidal thoughts Endocrine Endocrinology: Denies polydipsia, polyphagia or polyuria Hematologic/Lymphatic Hematologic/Lymphatic: Denies easy bleeding, easy bruising or lymphadenopathy Allergic/Immunologic Allergic/Immunologic ED: Denies mouth swelling, tongue swelling or urticaria EXAM Physical Exam Const Vital Signs: 11/18/22 09:23 11/18/22 10:28 11/18/22 09:40 Temperature 96 F L Temperature Source Temporal Pulse Rate 120 H 90 Respiratory Rate 18 Blood Pressure 220/113 H 179/91 H Blood Pressure Mean 148 Pulse Ox 97 Oxygen Delivery Method Room Air Room Air Positive well nourished and well developed General Appearance ED: well developed and NAD HEENT Reports TM's clear and moist mucous membranes normocephalic and atraumatic; Negative for trauma or tenderness Tympanic Membrane ED: Yes TM's clear Eyes PERRL and EOMs intact bilaterally General Eye ED: Negative for pale conjunctiva or scleral icterus Neck no lymphadenopathy, supple and no JVD General: Negative for tenderness Chest Wall inspection of chest normal and palpation of chest normal Chest: Negative for tenderness Resp normal respiratory effort and clear to auscultation bilaterally Effort and Inspection: Negative for respiratory distress or pain with movement Auscultation: Negative for rhonchi, wheezes or diminished lung sounds Cardio regular rate, regular rhythm, S1 normal heart sound, S2 normal heart sound and no murmurs Peripheral Pulses: pulses 2+ throughout GI normal to inspection, nondistended, normoactive bowel sounds, soft to palpation, non-tender, non-distended and no masses Back/Spine no CVA tenderness and no thoracic nor lumbar tenderness Extremity normal to inspection General Extremety ED: Negative for edema General Extremity: Negative for edema Neuro oriented x3, CN's II-XII intact bilaterally, no sensory deficits noted and gait normal Sensorium / Orientation: awake, alert, oriented to person, oriented to place and oriented to time Motor Exam: strength 5/5 throughout and strength abnormal Psych mental status grossly normal Skin no rashes or lesions noted and no wounds Heart Score History: Highly Suspicious ECG: Normal Age: </= 45 years Risk Factors: 1 or 2 Risk Factors Troponin: >/=3 x Normal Limit Score: 5 MDM MDM MDM Narrative Medical decision making narrative: IV line established on arrival. Patient placed on butadiene converter helper. Patient was given sublingual nitro and aspirin. Her blood pressure systolic did improve down into the 170s. Patient CBC with differential was unremarkable. Chemistries unremarkable. D-dimer was normal 0.40. Troponin was elevated at 405. Patient started on a heparin drip. Case discussed with diagnostic medical sonographer on- call Dr. Calvin Piña who recommended Lopressor IV and admission for likely heart catheterization. EKG with sinus tach with with no significant ST changes noted. Patient has an acute coronary syndrome and case will be discussed with hospitalist for admission. Lab Data Attestation: I reviewed the patient's lab results. Labs: Laboratory Results - last 24 hr 11/18/22 11/18/22 11/18/22 09:30 09:30 09:30 WBC 5.6 RBC 4.38 Hgb 13.9 Hct 39.8 MCV 90.9 MCH 31.7 MCHC 34.9 RDW Std Deviation 40.6 RDW Coeff of Braxton 12.2 Plt Count 238 MPV 9.3 Immature Gran % (Auto) 0.400 Neut % (Auto) 54.1 Lymph % (Auto) 33.2 Marshall % (Auto) 10.6 H Eos % (Auto) 1.3 Baso % (Auto) 0.4 Absolute Neuts (auto) 3.0 Absolute Lymphs (auto) 1.84 Nucleated RBC % 0 D-Dimer Quant (PE/DVT) 0.40 Sodium 137 Potassium 3.4 L Chloride 100 Carbon Dioxide 29.0 Anion Gap 8 BUN 8 Creatinine 0.68 Estim Creat Clear Calc 90.22 Est GFR (MDRD) Af Amer 120 Est GFR (MDRD) Non-Af 99 BUN/Creatinine Ratio 11.7 Glucose 199 H Calcium 9.3 Troponin I High Sens 405 H* Radiography Chest X-Ray - ED: 1 View Diagnostic Testing: Clinical Impression(s) from Imaging Studies Chest X-Ray 11/18/22 10:30 IMPRESSION: No acute abnormality is seen. Electronically Signed: Guy Roger MD at 10:45 EST , 1 view chest x-ray obtained interpreted by myself no acute disease process. Radiology in agreement. EKG Initial EKG: Attestation: I personally reviewed and interpreted this EKG as follows: Comments: Sinus rhythm with a ventricular rate of 105 bpm with no acute ST segment changes Discharge Plan Dx/Rx/DC Orders Clinical Impression: Non-ST elevated myocardial infarction, Hypertension, ACS (acute coronary syndrome) Disposition Disposition: Acute Care Hospital [facility]
[2022-11-18 10:03] LABS: Absolute Lymphocyte Count 1.84 X10^3/uL (0.83-4.51); Basophil# 0.02 X10^3/uL; Basophil% 0.4 % (0-1); Eosinophil# 0.07 X10^3/uL; Eosinophils% 1.3 % (0-5); Hematocrit 39.8 % (37-47); Hemoglobin 13.9 g/dL (12.0-15.0); Lymphocyte # 1.84 X10^3/ul (0.83-4.51); Lymphocyte % 33.2 % (19-41); Mean Corp Hgb Conc 34.9 g/dL (32-36); Mean Corpuscular Hgb 31.7 pg (27.0-32.0); Mean Corpuscular Volume 90.9 fL (81-99); Mean Platelet Vol. 9.3 fl (6.2-12.0); Monocyte# 0.59 X10^3/uL; Monocyte% 10.6 % (0-10); NRBC Flagged by Analyzer 0 % (0-5); Neutrophil # 3.01 X10^3/uL (2.7-7.7); Neutrophil % 54.1 % (47-70); Platelet Count 238 K/mm3 (150-450); RBC Distribution Width CV 12.2 % (11.6-14.6); RBC Distribution Width SD 40.6 fl (35.1-43.9); Red Blood Count 4.38 M/mm3 (4.2-5.4); White Blood Count 5.6 K/mm3 (4.4-11.0)
[2022-11-18] MEDS: Ondansetron 4 MG/2 ML Vial IV (10:14)
[2022-11-18] MEDS: 0.9% Normal Saline 1,000 ML 150 ML IV (10:14)
[2022-11-18] MEDS: Aspirin 81 MG TAB.CHEW 324 MG PO (10:15)
--- NOTE | 2022-11-18 10:20 | ED.RN ---
lab called troponin 405. dr richey
[2022-11-18 10:21] LABS: Anion Gap 8 (5-15); BUN 8 mg/dL (7-18); BUN/Creat Ratio 11.7 RATIO (10-20); Calcium,Total 9.3 mg/dL (8.5-10.1); Chloride 100 mmol/L (98-107); Creatinine, Serum 0.68 mg/dL (0.55-1.02); EST Glomerular Filtration Rate 99 mL/min (>60); Est Glom Filt Rate - Afr Amer 120 mL/min (>60); Estimated Creatinine Clearance 90.22 ml/min; Glucose 199 mg/dL (74-106); Potassium 3.4 mmol/L (3.5-5.1); Sodium Level 137 mmol/L (136-145); Troponin-I HS (w/2H Reflex) 405 pg/mL (3.0-54.0)
[2022-11-18] MEDS: Nitroglycerin SL (ED/IMG/CATH) 0.4 MG TABLET SL ×3 (10:28→11:05)
--- NOTE | 2022-11-18 10:30 | RAD_ITS ---
STUDY: X-RAY CHEST REASON FOR EXAM: Female, 47 years old. Chest pain TECHNIQUE: Single AP portable view of the chest. COMPARISON: Comparison is made with prior study of 02/22/2022. FINDINGS: EKG electrodes are seen. The lungs are clear and expanded. Scattered calcified granulomas. There is no demonstrated pleural abnormality. Normal size heart. Normal mediastinum and aviva. Normal visualized pulmonary arteries. Normal visualized aortic arch and descending thoracic aorta. Normal visualized thoracic spine. Normal visualized ribs, clavicles, and shoulders. There is no demonstrated abnormality of the visualized soft tissue structures of the upper abdomen. RAD/Chest 1 View (Portable) IMPRESSION: No acute abnormality is seen. Electronically Signed: Guy Roger MD at 10:45 EST ,
[2022-11-18] MEDS: Heparin Injection (Vial) 5,000 UNIT/ML VIAL 4500 UNIT IV (10:56)
[2022-11-18] MEDS: HEPARIN/D5w 25,000 UNITS 25,000 UNITS/250 ML IV.SOLN. 10 UNITS CONT INF (10:59)
--- NOTE | 2022-11-18 10:59 | NURSING ---
DR HOPE FOR DR JHA
[2022-11-18] MEDS: Metoprolol Tartrate 5 MG/5 ML Vial IV ×3 (11:03→12:45)
--- NOTE | 2022-11-18 11:07 | NURSING ---
ARYA HOPE NSTEMI, ACS, HYPERTENSION
[2022-11-18 11:11] LABS: Partial Thromboplast Time 27.6 Seconds (24.1-36.2); Prothrombin Time (Protime)PT. 12.9 SECONDS (11.7-14.9)
--- NOTE | 2022-11-18 11:14 | NURSING ---
PCU ED 2
[2022-11-18] MEDS: Acetaminophen 325 MG Tablet 650 MG PO ×2 (11:53→22:45)
[2022-11-18] MEDS: Nitroglycerin Oint 1 INCH PACKET TD (11:53)
[2022-11-18 11:56] LABS: Reflex Troponin-HS? (from REC) Y
--- NOTE | 2022-11-18 12:09 | ED.RN ---
pt with tiny nonraised petechiae looking rash to b/l hands and wrists only to top of hands. denies any itching and no other rash to trunck obs. dr. rees aware and no new orders and will monitor
--- NOTE | 2022-11-18 12:47 | ECHOCS_ITS ---
Reason For Study: Chest Pain Procedure This was a 2D Doppler, Color Flow transthoracic echocardiogram. The study was technically difficult. Contrast injection was performed. Exam performed portable in ED. Left Ventricle Normal LV size. Left ventricular systolic function is normal. The estimated ejection fraction is 65 %. No evidence for diastolic dysfunction. No regional wall motion abnormalities noted. Right Ventricle Normal RV size. Normal systolic function. Atria Normal left atrium. Normal right atrium. No doppler evidence for ASD. Bubble contrast study negative for right to left interatrial shunt. Mitral Valve There is no mitral annular calcification. Normal mitral valve. Trivial mitral valve insufficiency. Tricuspid Valve Normal tricuspid valve. Trivial tricuspid valve insufficiency. Unable to estimate RV systolic pressure/pulmonary artery pressure due to technically difficult study. Aortic Valve Trisinus/trileaflet aortic valve. Normal aortic valve. Pulmonic Valve The pulmonic valve is not well visualized. Great Vessels The aortic root is not well visualized. Pericardium/Pleural No pericardial effusion. Medication Diluted definity 2ml given slow IV push to enhance endocardial definition. Performed a rapid injection of agitated mix of 9 cc saline and 1cc air to assess for atrial septal defect. MMode/2D Measurements & Calculations LVIDd: 4.3 cm IVSd: 0.86 cm LA dimension: 3.4 cm LVIDs: 2.7 cm LVPWd: 0.90 cm RVDd: 2.8 cm FS: 35.6 % LAV(MOD-bp): 34.9 ml LA A4 area: 13.9 cm2 RA A4 area: 9.6 cm2 LAV(MOD-bp) Indexed: 20.2 ml/m2 LAV(MOD-sp2): 29.2 ml LAV(MOD-sp4): 36.7 ml Time Measurements MV dec time: 0.18 sec Doppler Measurements & Calculations MV E max julius: 77.1 cm/sec Lat Peak E' Julius: 11.9 cm/sec Med Peak E' Julius: 9.6 cm/sec MV A max julius: 69.5 cm/sec E/E' lat: 6.5 E/E' med: 8.0 MV E/A: 1.1 MV V2 max: 115.3 cm/sec MV P1/2t max julius: 114.3 cm/sec Ao V2 max: 91.3 cm/sec MV max P.3 mmHg MV P1/2t: 72.0 msec Ao max P.3 mmHg MV V2 mean: 60.6 cm/sec MV dec slope: 464.8 cm/sec2 MV mean P.8 mmHg MV V2 VTI: 26.9 cm MVA(P1/2t): 3.1 cm2 LV V1 max: 87.9 cm/sec PA V2 max: 79.4 cm/sec LV V1 max P.1 mmHg PA V2 mean: 57.4 cm/sec ECHO/Echo Complete W/ Contrast Interpretation Summary The study was technically difficult. Contrast injection was performed. Left ventricular systolic function is normal. The estimated ejection fraction is 65 %. Trivial mitral valve insufficiency. Trivial tricuspid valve insufficiency. Unable to estimate RV systolic pressure/pulmonary artery pressure due to techni jet difficult study. No evidence for diastolic dysfunction. Ordering Physician: Calvin Piña Referring Physician: Calvin Waldrop Performed By: Andrew Hernandez RCS
--- NOTE | 2022-11-18 12:52 | CON.PCM.CA_ITS ---
Assessment & Plan Assessment/Plan (1) Non-ST elevated myocardial infarction: PLAN: The patient has findings compatible with an acute coronary syndrome/non-ST segment elevation [place]. This is based upon her symptoms and her high-sensitivity troponin I levels. She does have cardiovascular risk factors as noted above. At the present time she does appear to be symptomatically improved status post emergency department evaluation and care. She will continue to be monitored. She will continue cardiac enzyme follow-up. She will continue ECG follow-up. She will be asked to have an echocardiogram to assess her left ventricular wall thickness and overall LV wall motion and systolic function. Ideally she will be considered for further evaluation with diagnostic cardiac catheterization. In the interim she will continue medical therapy such as aspirin, nitrates as needed, beta-blockers, and anticoagulant agents. Her medications can be adjusted as deemed appropriate. (2) Hypertensive urgency: PLAN: The patient's blood pressure was markedly elevated. There may be a concern as to whether this is the etiology for her symptoms and her abnormal cardiac enzymes as opposed to a primary acute coronary syndrome event, etc. At the moment it does appear her blood pressure has improved somewhat. She will continue adjustment of medication to try and bring her blood pressure under better control. (3) Type 2 diabetes mellitus: QUALIFIERS: Diabetes mellitus complication status: with circulatory complication Diabetes mellitus complication detail: with peripheral angiopathy without gangrene PLAN: She does have a history of diabetes mellitus. She will need continued evaluation care by her other physicians. Addt'l Comments The patient's case was discussed and reviewed with the patient as well as previously with Dr. James of the [facility] emergency department staff. This note was generated using a voice recognition system and there may be incorrect words, spelling or punctuation that were not noted when reviewing the office note prior to saving. HPI Consult Data Date of Consult: 11/18/22 HPI Narrative HPI Narrative: JOSEPH RINCON, is a 47 year old white female who presents for [facility] emergency department cardiovascular consultation based upon concerns of chest pain and abnormal high-sensitivity troponin I levels concerning for an acute coronary syndrome superimposed upon a history of hypertension and diabetes mellitus. The patient states that yesterday she noted she was having episodes of chest discomfort which she thought was related to GERD. However, since that time she has had episodes of nightly chest discomfort but left shoulder dis comfort and left scapular area discomfort as well as potentially being somewhat short of breath and dyspneic and transiently diaphoretic. She also notes she has felt somewhat nauseated but had no emesis. She notes that she did not feel well. Thus she was brought to the emergency department for further evaluation. In the emergency department she was evaluated and noted to be markedly hypertensive. A high-sensitivity troponin I level was reported as elevated. An ECG demonstrated sinus tachycardia with no acute ECG changes. A D-dimer level was performed which was reported as negative. Chest x-ray reported no acute cardiopulmonary disease process. She was being treated for her concerns of hypertension as well as an acute coronary syndrome medically including nitroglycerin sublingual and and the addition of IV heparin. At the present time she states she does feel better overall other than a headache which she stated she had prior to arrival to the hospital but may have been exacerbated somewhat status post the nitroglycerin sublingual. She has denied any cardiovascular history. She denies any orthopnea or PND or ongoing peripheral pitting edema. She denies any history of near syncope or syncope. To the best of her knowledge she does not recall requiring cardiovascular evaluation in the past. She does state that her other physicians have been challenged to try and bring her blood pressure under better control. She states she is also been working to try and bring her diabetes and hemoglobin A1c under better control. [facility] Medical History Acute lumbar myofascial strain Anxiety Depression Diabetes HTN (hypertension) Strain of left hip Home Medications metformin 500 mg tablet 500 ea PO BID DIABETES 10/31/22 [History Last Taken 11/17/22 21:30] metoprolol succinate 50 mg tablet,extended release 24 hr 50 ea PO DAILY BLOOD PRESSURE 10/31/22 [History Last Taken 11/17/22 09:00] lisinopril 40 mg tablet 40 mg PO DAILY BLOOD PRESSURE 11/18/22 [History Last Taken 11/17/22 09:00] paroxetine HCl 10 mg tablet 10 mg PO DAILY DEPRESSION/ANXIETY 11/18/22 [History Last Taken 11/17/22 09:00] Allergy/AdvReac Type Severity Reaction Status Date / Time No Known Allergies Allergy Verified 11/18/22 09:24 Family History Grandfather CVA (cerebral vascular accident) Diabetes Mother Cancer Father Hypertension Grandmother Hypertension Diabetes Surgical History H/O tooth extraction History of cholecystectomy plantar fasciitis release Social History Smoking Status: Current every day smoker tobacco type: cigarettes alcohol intake: current alcohol intake frequency: a few times a month Alcohol type: hard liquor ROS Constitutional Constitutional: Reports as per HPI Eyes Eyes: Reports as per HPI ENT HEENT: Reports as per HPI Cardiovascular Cardiovascular: Reports chest pain, chest pain at rest, chest pain with a ctivity, diaphoresis, dyspnea and nausea Respiratory/Chest Respiratory/Chest: Reports dyspnea Gastrointestinal Gastrointestinal: Reports nausea Genitourinary Genitourinary: Reports as per HPI Musculoskeletal Musculoskeletal: Reports as per HPI Integumentary Integumentary: Reports as per HPI Neurologic Neurologic: Reports as per HPI Psychiatric Psychiatric: Reports as per HPI Physical Exam Const alert, oriented x3, no apparent distress and healthy appearing Orientation / Consciousness: awake HEENT normocephalic, head/scalp atraumatic and hearing grossly normal bilaterally Eyes PERRL, EOMs intact bilaterally, conjunctivae normal and no scleral icterus Neck full ROM, supple and no JVD Carotids: normal carotid upstroke Resp normal respiratory effort and clear to auscultation bilaterally Cardio regular rate, regular rhythm, S1 normal heart sound and S2 normal heart sound GI normal to inspection, nondistended, normoactive bowel sounds Extremity no pedal edema Skin no rashes or lesions noted Psych mental status grossly normal Risk Stratification Risk Stratification Applicable: Yes Age >/= 65: No >/= 3 CAD Risk Factors (HTN, HLD, DM, family hx of CAD, or current smoker): Yes Aspirin Use in the Past 7 Days: No Severe Angina (>/= episodes in 24 hours): Yes EKG ST Changes >/= 0.5mm: No Positive Cardiac Marker: Yes OLGA Risk Stratification Score: 3 OLGA % Risk: 13% Risk Procedure Criteria Type of Procedure Procedure Type: Elective Elective Risks - COVID COVID Risk Discussion: The surgeon/proceduralist and patient have discussed in detail the risk of ex posure to and/or potential harm posed by the COVID-19 virus with having a surgery/procedure at this time versus the risk of delaying the surgery/procedure. It is not possible to know either the risk of delaying the surgery or procedure or chance of getting an infection with perfect accuracy, but a joint decision was made between the patient and the surgeon/proceduralist to proceed at this time with the scheduled surgery/procedure as indicated on the consent form. Objective Data Vital Signs: Vital Signs Temp Pulse Resp BP Pulse Ox O2 Del Method 98.1 F 79 18 154/86 H 95 Room Air 11/18/22 12:39 11/18/22 12:39 11/18/22 12:39 11/18/22 12:39 11/18/22 12:39 11/18/22 12:39 Oxygen Delivery Method Room Air Weight: 150 lb Body Mass Index (BMI) 25.7 Lab / Micro Data Result Diagrams: 11/18/22 09:30 11/18/22 09:30 Labs: Laboratory Results - last 24 hr 11/18/22 09:30: WBC 5.6, RBC 4.38, Hgb 13.9, Hct 39.8, MCV 90.9, MCH 31.7, MCHC 34.9, RDW Std Deviation 40.6, RDW Coeff of Braxton 12.2, Plt Count 238, MPV 9.3, Immature Gran % (Auto) 0.400, Neut % (Auto) 54.1, Lymph % (Auto) 33.2, Ralls % (Auto) 10.6 H, Eos % (Auto) 1.3, Baso % (Auto) 0.4, Absolute Neuts (auto) 3.0, Absolute Lymphs (auto) 1.84, Nucleated RBC % 0 11/18/22 09:30: Sodium 137, Potassium 3.4 L, Chloride 100, Carbon Dioxide 29.0, Anion Gap 8, BUN 8, Creatinine 0.68, Estim Creat Clear Calc 90.22, Est GFR (MDRD) Af Amer 120, Est GFR (MDRD) Non-Af 99, BUN/Creatinine Ratio 11.7, Glucose 199 H, Calcium 9.3, Troponin I High Sens 405 H* 11/18/22 09:30: D-Dimer Quant (PE/DVT) 0.40 11/18/22 10:47: PT 12.9, INR 1.0, APTT 27.6 Cardiology Labs/Tests 11/18/22 09:30: WBC 5.6, RBC 4.38, Hgb 13.9, Hct 39.8, MCV 90.9, MCH 31.7, MCHC 34.9, Plt Count 238, MPV 9.3, Immature Gran % (Auto) 0.400, Neut % (Auto) 54.1, Lymph % (Auto) 33.2, Ralls % (Auto) 10.6 H, Eos % (Auto) 1.3, Baso % (Auto) 0.4, Absolute Neuts (auto) 3.0, Nucleated RBC % 0 11/18/22 09:30: Sodium 137, Potassium 3.4 L, Chloride 100, Carbon Dioxide 29.0, Anion Gap 8, BUN 8, Creatinine 0.68, Est GFR (MDRD) Af Amer 120, Est GFR (MDRD) Non-Af 99, BUN/Creatinine Ratio 11.7, Glucose 199 H, Calcium 9.3 11/18/22 09:30: D-Dimer Quant (PE/DVT) 0.40 11/18/22 10:47: PT 12.9, INR 1.0, APTT 27.6 Rhythm: Sinus rhythm EKG: Sinus tachycardia Radiography Diagnostic Testing: Radiology Impression Chest X-Ray 11/18/22 10:30 IMPRESSION: No acute abnormality is seen. Electronically Signed: Guy Roger MD at 10:45 EST ,
[2022-11-18 13:18] LABS: Troponin-I HS 529 pg/mL (3.0-54.0)
[2022-11-18 13:28] LABS: AST(SGOT) 26 U/L (15-37); Alanine Aminotransfer ALT/SGPT 33 U/L (13-56); Albumin, Serum 3.4 g/dL (3.2-5.0); Alkaline Phosphatase 82 U/L (45-117); Bilirubin, Direct 0.13 mg/dL (0.00-0.30); Protein, Total 7.4 g/dL (6.4-8.2)
--- NOTE | 2022-11-18 13:38 | CASEMGMT ---
Tertiary facilities in-network with patient's insurance: [facility], [facility], [facility], , [facility], [facility]ae
[2022-11-18] MEDS: amLODIPine 2.5 MG Tablet PO (15:07)
[2022-11-18] MEDS: Metoprolol Tartrate 50 MG Tablet PO ×2 (15:08→22:13)
[2022-11-18 16:52] LABS: Troponin-I HS 494 pg/mL (3.0-54.0)
[2022-11-18 17:25] LABS: Bedside Glucose 203 mg/dL (74-106)
[2022-11-18] MEDS: Insulin Lispro 100 UNIT/ML INSULN.PEN SC ×2 (17:35→22:13)
[2022-11-18] MEDS: 0.9% Normal Saline 1,000 ML 15 ML IV (17:35)
[2022-11-18 18:30] LABS: Partial Thromboplast Time > 200.0 Seconds (24.1-36.2)
--- NOTE | 2022-11-18 18:54 | PCM.HP.STD ---
HPI - General General Date of Admission: 11/18/22 HPI Narrative JOSEPH RINCON, is a 47 F who presents to the hospital with chest pain. She first noticed having some chest discomfort yesterday around her left shoulder and thought there might have been some shortness of breath associated with that. She did have some nausea but no emesis. She presented to the hospital today because she has had recurrent chest discomfort. EKG was unremarkable however her troponin was elevated. She was also found to have a history of hypertension but did not take her blood pressure medications this morning and so her blood pressure has been fairly elevated today. [facility] Medical History (Updated 11/19/22 @ 08:[address] Calvin Piña MD) Acute lumbar myofascial strain Anxiety Depression Diabetes HTN (hypertension) Pancreatitis Sleep apnea Strain of left hip Home Medications metformin 500 mg tablet 500 ea PO BID DIABETES 10/31/22 [History Last Taken 11/17/22 21:30] metoprolol succinate 50 mg tablet,extended release 24 hr 50 ea PO DAILY BLOOD PRESSURE 10/31/22 [History Last Taken 11/17/22 09:00] lisinopril 40 mg tablet 40 mg PO DAILY BLOOD PRESSURE 11/18/22 [History Last Taken 11/17/22 09:00] paroxetine HCl 10 mg tablet 10 mg PO DAILY DEPRESSION/ANXIETY 11/18/22 [History Last Taken 11/17/22 09:00] Allergy/AdvReac Type Severity Reaction Status Date / Time No Known Allergies Allergy Verified 11/18/22 09:24 Family History Grandfather CVA (cerebral vascular accident) Diabetes Mother Cancer Father Hypertension Grandmother Hypertension Diabetes Surgical History H/O tooth extraction History of cholecystectomy plantar fasciitis release Social History Smoking Status: Current every day smoker tobacco type: cigarettes alcohol intake: current alcohol intake frequency: a few times a month Alcohol type: hard liquor ROS Constitutional Constitutional: Denies chills, fatigue, fever(s) or malaise Eyes Eyes: Denies blurry vision ENT HEENT: Denies headache(s) or nasal discharge Cardiovascular Cardiovascular: Reports chest pain and dyspnea on exertion; Denies orthopnea, palpitations or syncope Respiratory/Chest Respiratory/Chest: Denies cough, shortness of breath at rest or shortness of breath with exertion Gastrointestinal Gastrointestinal: Denies constipation, diarrhea, nausea or vomiting Genitourinary Genitourinary: Denies dysuria Neurologic Neurologic: Denies focal weakness, numbness or tremor(s) Psychiatric Psychiatric: Denies anxiety or depression Vital Signs Vital Signs Vital Signs: 11/18/22 09:23 11/18/22 10:28 11/18/22 09:40 Temperature 96 F L Temperature Source Temporal Pulse Rate 120 H 90 Respiratory Rate 18 Blood Pressure 220/113 H 179/91 H Blood Pressure [BP] Blood Pressure Mean 148 Blood Pressure Mean [BP] Blood Pressure Source Blood Pressure Source [BP] Blood Pressure Position Blood Pressure Position [BP] Blood Pressure Location Blood Pressure Location [BP] Pulse Ox 97 Oxygen Delivery Method Room Air Room Air 11/18/22 11:00 11/18/22 11:22 11/18/22 11:05 Temperature Temperature Source Pulse Rate 99 91 93 Respiratory Rate 23 H Blood Pressure 173/101 H 170/97 H 173/96 H Blood Pressure [BP] Blood Pressure Mean 121 Blood Pressure Mean [BP] Blood Pressure Source Blood Pressure Source [BP] Blood Pressure Position Blood Pressure Position [BP] Blood Pressure Location Blood Pressure Location [BP] Pulse Ox 93 Oxygen Delivery Method Room Air 11/18/22 11:53 11/18/22 12:39 11/18/22 13:20 Temperature 98.1 F Temperature Source Temporal Pulse Rate 82 79 73 Respiratory Rate 18 18 Blood Pressure 154/90 H 154/86 H 130/71 H Blood Pressure [BP] Blood Pressure Mean 108 90 Blood Pressure Mean [BP] Blood Pressure Source Blood Pressure Source [BP] Blood Pressure Position Blood Pressure Position [BP] Blood Pressure Location Blood Pressure Location [BP] Pulse Ox 95 95 Oxygen Delivery Method Room Air Room Air 11/18/22 14:00 11/18/22 15:08 11/18/22 13:48 Temperature 97.8 F Temperature Source Temporal Pulse Rate 78 84 83 Respiratory Rate 17 Blood Pressure 147/94 H Blood Pressure [BP] Blood Pressure Mean 111 Blood Pressure Mean [BP] Blood Pressure Source Monitor Blood Pressure Source [BP] Blood Pressure Position Semi-Fowlers Blood Pressure Position [BP] Blood Pressure Location Right Arm Blood Pressure Location [BP] Pulse Ox 95 Oxygen Delivery Method Room Air 11/18/22 13:48 11/18/22 16:36 Temperature 97.2 F L Temperature Source Temporal Pulse Rate 87 78 Respiratory Rate 19 H 16 Blood Pressure 187/98 H Blood Pressure [BP] 180/87 H Blood Pressure Mean 127 Blood Pressure Mean [BP] 118 Blood Pressure Source Monitor Blood Pressure Source [BP] Monitor Blood Pressure Position Sitting Blood Pressure Position [BP] Semi-Fowlers Blood Pressure Location Right Arm Blood Pressure Location [BP] Right Arm Pulse Ox 97 96 Oxygen Delivery Method Room Air Room Air Weight Weight: 166 lb 3.657 oz Body Mass Index (BMI) 28.5 Physical Exam Narrative General: Alert, Oriented x3, Cooperative, No apparent distress HEENT: Atraumatic, PERRLA, EOMI, Normocephalic Oral: Moist Mucosa Neck: Supple, No JVD Lungs: Clear to auscultation, Normal air movement, No rhonchi, No wheeze, No rales Cardiovascular: Regular rate, Regular Rhythm, Normal S1, Normal S2, No murmurs Abdomen: Soft, Non Tender, Non-Distended, No Hepato-splenomegaly Extremities: No edema, Capillary Refill Less than 3 Seconds Skin: No rashes, No breakdown Musculoskeletal: No Tenderness to Palpation of Joints or Extremities Neurological: Cranial nerves II-XII grossly intact, Motor Exam 5/5 strength throughout, Sensory exam intact to light touch and pain Psych/Mental Status: Normal Affect, Appropriate Results Lab / Micro Data Result Diagrams: 11/19/22 03:46 11/19/22 03:46 Labs: Laboratory Results - last 24 hr 11/18/22 09:30: WBC 5.6, RBC 4.38, Hgb 13.9, Hct 39.8, MCV 90.9, MCH 31.7, MCHC 34.9, RDW Std Deviation 40.6, RDW Coeff of Braxton 12.2, Plt Count 238, MPV 9.3, Immature Gran % (Auto) 0.400, Neut % (Auto) 54.1, Lymph % (Auto) 33.2, [place] % (Auto) 10.6 H, Eos % (Auto) 1.3, Baso % (Auto) 0.4, Absolute Neuts (auto) 3.0, Absolute Lymphs (auto) 1.84, Nucleated RBC % 0 11/18/22 09:30: Sodium 137, Potassium 3.4 L, Chloride 100, Carbon Dioxide 29.0, Anion Gap 8, BUN 8, Creatinine 0.68, Estim Creat Clear Calc 90.22, Est GFR (MDRD) Af Amer 120, Est GFR (MDRD) Non-Af 99, BUN/Creatinine Ratio 11.7, Glucose 199 H, Calcium 9.3, Troponin I High Sens 405 H* 11/18/22 09:30: D-Dimer Quant (PE/DVT) 0.40 11/18/22 09:30: Total Bilirubin 0.50, Direct Bilirubin 0.13, AST 26, ALT 33, Alkaline Phosphatase 82, Total Protein 7.4, Albumin 3.4, Globulin 4.0 11/18/22 10:47: PT 12.9, INR 1.0, APTT 27.6 11/18/22 12:41: Troponin I High Sens 529 H* 11/18/22 16:15: Troponin I High Sens 494 H* 11/18/22 16:49: POC Glucose 203 H 11/18/22 17:03: APTT > 200.0 H* Radiology Impression Chest X-Ray 11/18/22 10:30 IMPRESSION: No acute abnormality is seen. Electronically Signed: Guy Roger MD at 10:45 EST , Echocardiogram 11/18/22 12:47 Interpretation Summary The study was technically difficult. Contrast injection was performed. Left ventricular systolic function is normal. The estimated ejection fraction is 65 %. Trivial mitral valve insufficiency. Trivial tricuspid valve insufficiency. Unable to estimate RV systolic pressure/pulmonary artery pressure due to technically difficult study. No evidence for diastolic dysfunction. Ordering Physician: Calvin Piña Referring Physician: Calvin Waldrop Performed By: Andrew Hernandez RCS Assessment & Plan Assessment/Plan (1) HTN (hypertension): QUALIFIERS: Hypertension type: essential hypertension Qualified Code(s): I10 - Essential (primary) hypertension (2) Non-ST elevated myocardial infarction: PLAN: Plan 1. Non-STEMI with hypertensive urgency/HTN ? Blood pressures are elevated, can resume her home blood pressure medications, will transition her daily metoprolol to twice daily dosing ? Appreciate cardiology's assistance ? Continue with the heparin drip and will trend troponins ? Cardiology has ordered an echo ? Plan will be for heart cath for further investigation ? She was started on Norvasc 2. DM2 ? We will hold her home metformin and placed on a sliding scale insulin ? Accu-Cheks AC at bedtime ? We will make adjustments as necessary 3. Anxiety/depression ? Stable ? Continue with her home medications DVT: Heparin drip Charges/Coding Visit Charges Inpatient E&M: 50177 Init Hosp L2
[2022-11-18] MEDS: Nitroglycerin (INPATIENT USE) 0.4 MG TAB.SUBL SL (22:43)
[2022-11-19] VITALS (16 sets, daily range): BP systolic 100–142; BP diastolic 65–83; PULSE 64–85; RESP 14–18; TEMP 36.7–36.9; O2SAT 92–97
[2022-11-19 00:51] LABS: Bedside Glucose 194 mg/dL (74-106)
[2022-11-19] MEDS: Zolpidem Tartrate 5 MG Tablet PO (00:55)
[2022-11-19] MEDS: Nitroglycerin (INPATIENT USE) 0.4 MG TAB.SUBL SL ×2 (01:00→06:29)
[2022-11-19 03:55] LABS: Absolute Lymphocyte Count 2.69 X10^3/uL (0.83-4.51); Absolute Neutrophil Count 1.7 X10^3/uL (2.0-7.7); Basophil# 0.02 X10^3/uL; Basophil% 0.4 % (0-1); Eosinophil# 0.12 X10^3/uL; Eosinophils% 2.4 % (0-5); Hematocrit 34.5 % (37-47); Lymphocyte # 2.69 X10^3/ul (0.83-4.51); Lymphocyte % 52.7 % (19-41); Mean Corp Hgb Conc 34.8 g/dL (32-36); Mean Corpuscular Hgb 32.1 pg (27.0-32.0); Mean Corpuscular Volume 92.2 fL (81-99); Mean Platelet Vol. 9.5 fl (6.2-12.0); Monocyte# 0.54 X10^3/uL; Monocyte% 10.6 % (0-10); NRBC Flagged by Analyzer 0 % (0-5); Neutrophil # 1.72 X10^3/uL (2.7-7.7); Neutrophil % 33.7 % (47-70); Platelet Count 194 K/mm3 (150-450); RBC Distribution Width CV 12.2 % (11.6-14.6); RBC Distribution Width SD 41.3 fl (35.1-43.9); Red Blood Count 3.74 M/mm3 (4.2-5.4); White Blood Count 5.1 K/mm3 (4.4-11.0)
[2022-11-19 04:09] LABS: Partial Thromboplast Time 63.5 Seconds (24.1-36.2)
[2022-11-19 04:47] LABS: Anion Gap 6 (5-15); BUN 9 mg/dL (7-18); BUN/Creat Ratio 14.3 RATIO (10-20); Calcium,Total 7.7 mg/dL (8.5-10.1); Chloride 104 mmol/L (98-107); Cholesterol 144 mg/dL (200); Creatinine, Serum 0.63 mg/dL (0.55-1.02); EST Glomerular Filtration Rate 108 mL/min (>60); Est Glom Filt Rate - Afr Amer 131 mL/min (>60); Estimated Creatinine Clearance 97.38 ml/min; Glucose 194 mg/dL (74-106); High Density Lipoprotein 42 mg/dL; Potassium 3.4 mmol/L (3.5-5.1); Sodium Level 138 mmol/L (136-145); Triglycerides 227 mg/dL; Troponin-I HS 307 pg/mL (3.0-54.0); Very Low Density Lipoprotein 45 mg/dL (5-40)
--- NOTE | 2022-11-19 05:55 | EKG12_ITS ---
Test Reason : AM EKG Blood Pressure : / mmHG Vent. Rate : 074 BPM Atrial Rate : 074 BPM P-R Int : 132 ms QRS Dur : 082 ms QT Int : 428 ms P-R-T Axes : 050 063 058 degrees QTc Int : 475 ms Normal sinus rhythm Normal ECG Confirmed by GAVI LEBLANC, ALINA ([id number]), editor dictionary JAVID JAMES ([id number]) on 11/20/2022 7:39:56 AM Referred By: DR TORRES Confirmed By:ALINA GATICA MD
[2022-11-19] MEDS: amLODIPine 2.5 MG Tablet PO ×2 (06:23→10:59)
[2022-11-19] MEDS: Lisinopril 40 MG Tablet PO (06:23)
[2022-11-19] MEDS: Metoprolol Tartrate 50 MG Tablet PO (06:23)
[2022-11-19] MEDS: Acetaminophen 325 MG Tablet 650 MG PO (06:24)
[2022-11-19] MEDS: Aspirin 81 MG TAB.CHEW PO (06:27)
[2022-11-19] MEDS: Potassium Chloride Oral Tablet 20 MEQ 60 MEQ PO (07:03)
[2022-11-19 07:08] LABS: Internal QC Validated? YES +Cl - CLEAR BKGD; Pregnancy, Serum, hCG Quali. NEGATIVE Negative
[2022-11-19 07:10] LABS: Bedside Glucose 171 mg/dL (74-106)
--- NOTE | 2022-11-19 07:14 | NURSING ---
report given to label cutter.
--- NOTE | 2022-11-19 08:29 | CL.D_ITS ---
Patient Name: JOSEPH RINCON Study Date: 11/19/2022 Performing: Calvin Piña MD Ht: 64 inches 162.56 cm : 1975 Wt: 166.4 lbs 75.4 kg Age: 47 Gender: female BSA: 1.81 PROCEDURE(S) PERFORMED [id number])LHC/COR/LV CLINICAL PROFILE AND INDICATIONS Indications: Suspected CAD Heart Failure: None Stress/Imaging Stress/Image Study Performed: No Angina Classification Anginal Classification w/in 2 Weeks: CCS III CAD Presentations: Non-STEMI. CONCLUSIONS Elevated Left Ventricular End Diastolic Pressure Normal LV size, wall motion,and systolic function LVEF: by LV gram 65 % Normal coronary arteries RECOMMENDATIONS Risk factor modification Medical therapy DESCRIPTION OF PROCEDURE The patient arrived to the procedure lab. The risks and benefits of the procedure as well as a full description of our services here and current unavailability of surgical backup were fully explained to the patient and/or their significant other prior to the catheterization. The Timeout was completed, verifying the correct patient and procedure. The patient's procedural site was prepped and draped in the usual fashion. Local anesthetic was given subcutaneously to right radial region with Lidocaine 2%. Using a modified Seldinger technique, Left Coronary Artery selective angiography was performed in multiple views using a 5 Fr. 4.0 [place] catheter. Right Coronary Artery selective angiography was then performed in multiple views using a 5 Fr. 4.0 [place] catheter. Left Ventriculography was performed in DAVID projection using a 5 Fr. Pigtail catheter. LV to AO pullback pressures were then recorded.The arterial sheath was pulled and a TR Band was applied for hemostasis. 10cc air inserted. CORONARY ANGIOGRAPHY DOMINANCE: Left Dominant LEFT HEART ASSESSMENT Left Ventricular Ejection Fraction: by LV Gram 65 % Elevated Left Ventricular End Diastolic Pressure LVEDP: 25 mmHg LEFT MAIN: Angiographically normal LEFT ANTERIOR DESCENDING ARTERY: Angiographically normal CIRCUMFLEX ARTERY: Angiographically normal RIGHT CORONARY ARTERY: Angiographically normal AORTIC ROOT: Angiographically normal COMPLICATIONS No Complications PROCEDURE MEDICATIONS Fentanyl 50 mcg IV Versed 1 mg IV Fentanyl 50 mcg IV Versed 1 mg IV Oxygen: 2 L/min via nasal cannula Heparin given IA 11/19/2022 08:00:51 Verapamil 2.5mg, Ntg 100mcgs, 3000 units of Heparin given IA 11/19/2022 08:00:51 SUMMARY OF HEMODYNAMIC DATA Time AIR REST ECG 07:34:24 Art 138/68 (92) 07:51:50 LV 130/9, 33 08:09:28 LV 129/5, 25 08:09:36 LV 124/11, 32 08:10:12 LV 130/9, 29 08:10:20 LVp 130/8, 25 08:10:26 AOp 132/70 (97) 08:10:33 Signed By Calvin Piña MD On 11/19/2022 08:28:18 Calvin Piña MD
--- NOTE | 2022-11-19 08:33 | PCM.PN.CARD ---
Subjective Subjective The patient was evaluated earlier this day. She stated she was feeling better overall. She has subsequently undergone further evaluation with diagnostic cardiac catheterization without obvious adverse events. She was noted to have preserved left ventricular systolic function/LVEF on both echocardiogram and her left ventriculogram. She was noted to have angiographically normal-appearing coronary arteries. Objective Data Vital Signs: Vital Signs Temp Pulse Resp BP Pulse Ox O2 Del Method 98.2 F 73 18 142/76 H 94 Room Air 11/19/22 06:18 11/19/22 07:27 11/19/22 06:18 11/19/22 06:29 11/19/22 06:18 11/19/22 06:18 Oxygen Delivery Method Room Air Weight: 166 lb 3.657 oz Body Mass Index (BMI) 28.5 Intake & Output: Intake and Output for Last 24 Hours 11/17/22 11/18/22 11/19/22 23:59 23:59 23:59 Intake Total 1469.58 / 1469.58 45.15 / 45.15 Balance 1469.58 / 1469.58 45.15 / 45.15 Lab / Micro Data Result Diagrams: 11/19/22 03:46 11/19/22 03:46 Labs: Laboratory Results - last 24 hr 11/18/22 09:30: WBC 5.6, RBC 4.38, Hgb 13.9, Hct 39.8, MCV 90.9, MCH 31.7, MCHC 34.9, RDW Std Deviation 40.6, RDW Coeff of Braxton 12.2, Plt Count 238, MPV 9.3, Immature Gran % (Auto) 0.400, Neut % (Auto) 54.1, Lymph % (Auto) 33.2, [place] % (Auto) 10.6 H, Eos % (Auto) 1.3, Baso % (Auto) 0.4, Absolute Neuts (auto) 3.0, Absolute Lymphs (auto) 1.84, Nucleated RBC % 0 11/18/22 09:30: Sodium 137, Potassium 3.4 L, Chloride 100, Carbon Dioxide 29.0, Anion Gap 8, BUN 8, Creatinine 0.68, Estim Creat Clear Calc 90.22, Est GFR (MDRD) Af Amer 120, Est GFR (MDRD) Non-Af 99, BUN/Creatinine Ratio 11.7, Glucose 199 H, Calcium 9.3, Troponin I High Sens 405 H* 11/18/22 09:30: D-Dimer Quant (PE/DVT) 0.40 11/18/22 09:30: Total Bilirubin 0.50, Direct Bilirubin 0.13, AST 26, ALT 33, Alkaline Phosphatase 82, Total Protein 7.4, Albumin 3.4, Globulin 4.0 11/18/22 10:47: PT 12.9, INR 1.0, APTT 27.6 11/18/22 12:41: Troponin I High Sens 529 H* 11/18/22 16:15: Troponin I High Sens 494 H* 11/18/22 16:49: POC Glucose 203 H 11/18/22 17:03: APTT > 200.0 H* 11/18/22 21:56: POC Glucose 194 H 11/19/22 03:46: Sodium 138, Potassium 3.4 L, Chloride 104, Carbon Dioxide 28.0, Anion Gap 6, BUN 9, Creatinine 0.63, Estim Creat Clear Calc 97.38, Est GFR (MDRD) Af Amer 131, Est GFR (MDRD) Non-Af 108, BUN/Creatinine Ratio 14.3, Glucose 194 H, Calcium 7.7 L, Troponin I High Sens 307 H*, Triglycerides 227 H, Cholesterol 144, LDL Cholesterol 57, VLDL Cholesterol 45 H, HDL Cholesterol 42 11/19/22 03:46: WBC 5.1, RBC 3.74 L, Hgb 12.0, Hct 34.5 L, MCV 92.2, MCH 32.1 H, MCHC 34.8, RDW Std Deviation 41.3, RDW Coeff of Braxton 12.2, Plt Count 194, MPV 9.5, Immature Gran % (Auto) 0.200, Neut % (Auto) 33.7 L, Lymph % (Auto) 52.7 H, [place] % (Auto) 10.6 H, Eos % (Auto) 2.4, Baso % (Auto) 0.4, Absolute Neuts (auto) 1.7 L, Absolute Lymphs (auto) 2.69, Nucleated RBC % 0 11/19/22 03:46: APTT 63.5 H 11/19/22 03:46: Serum , Qual NEGATIVE 11/19/22 06:22: POC Glucose 171 H Cardiology Labs/Tests 11/18/22 09:30: WBC 5.6, RBC 4.38, Hgb 13.9, Hct 39.8, MCV 90.9, MCH 31.7, MCHC 34.9, Plt Count 238, MPV 9.3, Immature Gran % (Auto) 0.400, Neut % (Auto) 54.1, Lymph % (Auto) 33.2, [place] % (Auto) 10.6 H, Eos % (Auto) 1.3, Baso % (Auto) 0.4, Absolute Neuts (auto) 3.0, Nucleated RBC % 0 11/18/22 09:30: Sodium 137, Potassium 3.4 L, Chloride 100, Carbon Dioxide 29.0, Anion Gap 8, BUN 8, Creatinine 0.68, Est GFR (MDRD) Af Amer 120, Est GFR (MDRD) Non-Af 99, BUN/Creatinine Ratio 11.7, Glucose 199 H, Calcium 9.3 11/18/22 09:30: D-Dimer Quant (PE/DVT) 0.40 11/18/22 09:30: Total Bilirubin 0.50, Direct Bilirubin 0.13 11/18/22 10:47: PT 12.9, INR 1.0, APTT 27.6 11/18/22 17:03: APTT > 200.0 H* 11/19/22 03:46: Sodium 138, Potassium 3.4 L, Chloride 104, Carbon Dioxide 28.0, Anion Gap 6, BUN 9, Creatinine 0.63, Est GFR (MDRD) Af Amer 131, Est GFR (MDRD) Non-Af 108, BUN/Creatinine Ratio 14.3, Glucose 194 H, Calcium 7.7 L, Triglycerides 227 H, Cholesterol 144, LDL Cholesterol 57, VLDL Cholesterol 45 H, HDL Cholesterol 42 11/19/22 03:46: WBC 5.1, RBC 3.74 L, Hgb 12.0, Hct 34.5 L, MCV 92.2, MCH 32.1 H, MCHC 34.8, Plt Count 194, MPV 9.5, Immature Gran % (Auto) 0.200, Neut % (Auto) 33.7 L, Lymph % (Auto) 52.7 H, [place] % (Auto) 10.6 H, Eos % (Auto) 2.4, Baso % (Auto) 0.4, Absolute Neuts (auto) 1.7 L, Nucleated RBC % 0 11/19/22 03:46: APTT 63.5 H Rhythm: Sinus rhythm EKG: Sinus rhythm ECHO: See below Cardiac Cath: CONCLUSIONS Elevated Left Ventricular End Diastolic Pressure Normal LV size, wall motion,and systolic function LVEF: by LV gram 65 % Normal coronary arteries RECOMMENDATIONS Risk factor modification Medical therapy DESCRIPTION OF? PROCEDURE The patient arrived to the procedure lab. The risks and benefits of the procedure as well as a full description of our services here and current unavailability of surgical backup were fully explained to the patient and/or their significant other prior to the catheterization. The Timeout was completed, verifying the correct patient and procedure. The patient's procedural site was prepped and draped in the usual fashion. Local anesthetic was given subcutaneously to right radial region with Lidocaine 2%. Using a modified Seldinger technique, ? Left Coronary Artery selective angiography was performed in multiple views using a 5 Fr. 4.0 [place] catheter. Right Coronary Artery selective angiography was then performed in multiple views using a 5 Fr. 4.0 [place] catheter. Left Ventriculography was performed in DAVID projection using a 5 Fr. Pig[place] catheter. LV to AO pullback pressures were then recorded.The arterial sheath was pulled and a TR Band was applied for hemostasis. 10cc air inserted. CORONARY ANGIOGRAPHY DOMINANCE:? Left Dominant LEFT HEART ASSESSMENT Left Ventricular Ejection Fraction: by LV Gram 65 % Elevated Left Ventricular End Diastolic Pressure LVEDP: 25 mmHg LEFT MAIN: Angiographically normal LEFT ANTERIOR DESCENDING ARTERY: Angiographically normal CIRCUMFLEX ARTERY: Angiographically normal RIGHT CORONARY ARTERY: Angiographically normal AORTIC ROOT: Angiographically normal Radiography Diagnostic Testing: Radiology Impression Chest X-Ray 11/18/22 10:30 IMPRESSION: No acute abnormality is seen. Electronically Signed: Guy Roger MD at 10:45 EST , Echocardiogram 11/18/22 12:47 Interpretation Summary The study was technically difficult. Contrast injection was performed. Left ventricular systolic function is normal. The estimated ejection fraction is 65 %. Trivial mitral valve insufficiency. Trivial tricuspid valve insufficiency. Unable to estimate RV systolic pressure/pulmonary artery pressure due to technically difficult study. No evidence for diastolic dysfunction. Ordering Physician: Calvin Piña Referring Physician: Calvin Waldrop Performed By: Andrew Hernandez RCS Physical Exam Const alert, oriented x3, no apparent distress and healthy appearing Orientation / Consciousness: awake HEENT normocephalic, head/scalp atraumatic and hearing grossly normal bilaterally Eyes PERRL, EOMs intact bilaterally, conjunctivae normal and no scleral icterus Neck full ROM, supple and no JVD Carotids: normal carotid upstroke Resp normal respiratory effort and clear to auscultation bilaterally Cardio regular rate, regular rhythm, S1 normal heart sound and S2 normal heart sound GI normal to inspection, nondistended, normoactive bowel sounds Extremity no pedal edema Extremity Narrative: Status postcardiac catheterization: Right radial artery: Pulses 2+/4+: No bruit: No hematoma Skin no rashes or lesions noted Psych mental status grossly normal Assessment & Plan Assessment/Plan (1) Non-ST elevated myocardial infarction: PLAN: The patient has findings compatible with an acute coronary syndrome/non-ST segment elevation KS. This is based upon her symptoms and her high-sensitivity troponin I levels. She has undergone further noninvasive and invasive valuation. Based upon her evaluation she has been found to have preserved left ventricular wall motion and systolic function/LVEF and angiographically normal-appearing coronary arteries. Thus it appears at this time that her non-ST segment elevation KS is a type II event most likely secondary to her hypertensive urgency event. At the present time she should continue risk factor evaluation and care as deemed appropriate. (2) Hypertensive urgency: PLAN: The patient's blood pressure was markedly elevated. Status post her evaluation this appears to be the etiology of her non-ST segment elevation KS. At the moment it does appear her blood pressure has improved somewhat. She will continue adjustment of medication to try and bring her blood pressure under better control. (3) Type 2 diabetes mellitus: QUALIFIERS: Diabetes mellitus complication status: with circulatory complication Diabetes mellitus complication detail: with peripheral angiopathy without gangrene PLAN: She does have a history of diabetes mellitus. She will need continued evaluation care by her other physicians. (4) Hypertriglyceridemia: PLAN: The patient's lipid labs were reviewed. Her total cholesterol, LDL, and HDL appear to be under reasonably good control. Her triglycerides have historically been elevated although her current level is improved compared to previous levels. Her elevated triglycerides may be in relationship to her hyperglycemia. At the moment she does need to continue dietary management, exercise as best as possible, and medical therapy for her hyperglycemia to hopefully help keep her triglycerides under better control. Addt'l Comments Overall, at the present time, she does appear to be symptomatically improved. She has undergone noninvasive and invasive evaluation as noted. From a cardiovascular standpoint she should continue risk factor modification medical therapy as deemed appropriate. It does not appear she requires additional cardiac diagnostic studies/intervention at this time. The patient's case has been discussed and reviewed with the patient. Thank you for allowing me to participate in the care of your patient. Please don't hesitate to call if any issues arise. This note was generated using a voice recognition system and there may be incorrect words, spelling or punctuation that were not noted when reviewing the office note prior to saving. Procedure Criteria Type of Procedure Procedure Type: Elective Elective Risks - COVID COVID Risk Discussion: The surgeon/proceduralist and patient have discussed in detail the risk of exposure to and/or potential harm posed by the COVID-19 virus with having a surgery/procedure at this time versus the risk of delaying the surgery/procedure. It is not possible to know either the risk of delaying the surgery or procedure or chance of getting an infection with perfect accuracy, but a joint decision was made between the patient and the surgeon/proceduralist to proceed at this time with the scheduled surgery/procedure as indicated on the consent form.
--- NOTE | 2022-11-19 09:20 | DCINST_ITS ---
Discharge Instructions Diet Discharge Diet: Low fat / Low cholesterol Activity Discharge Activity: Return to Normal Activity Return to work on:: 11/21/22 Dressing / Incision Call your doctor if you observe: Fever of 101 or Higher, Shortness of breath, Dizziness, Fainting spells, Swelling in the ankles, Chest pain and Increased palpitations (irregular heartbeat) Follow Up Care Test Results: Test results from this visit will be discussed in further detail at your follow- up appointment, if applicable. Discharge Plan Admission Admit Date/Time: 11/18/22 11:01 Attending Provider: Jay Kay Primary Care Provider: Calvin Waldrop Consulting Providers: Calvin Piña Discharge Orders/Prescriptions Prescriptions: New amlodipine 2.5 mg Tablet 5 mg PO DAILY Qty: 60 0RF aspirin 81 mg Tablet,Chewable 81 mg PO DAILY@0800 Qty: 30 0RF Continued metformin 500 mg tablet 500 ea PO BID metoprolol succinate 50 mg tablet extended release 24 hr 50 ea PO DAILY paroxetine HCl 10 mg tablet 10 mg PO DAILY lisinopril 40 mg tablet 40 mg PO DAILY Referrals / Follow Up: Calvin Waldrop MD [Primary Care Provider] - Within 1 Week Disposition Disposition (needs filled in before D/C Order can be placed): Home, Self Care
--- NOTE | 2022-11-19 09:45 | CASEMGMT ---
ROSA BROWN Assessment: Face to Face with pt for initial transition planning/care coordination assessment. RN STEPHANIE introduced self and role at [facility], pt voices understanding and consents to assessment. Pt sitting up in bed, eating breakfast. Appears to be in no distress. Pt is A/O x4 and answers all questions appropriately at this time. Care providers, pharmacy, and demographics verified/updated. Admitting Dx: NSTEMI. PCP: Calvin Do. Specialists: None. May start seeing a supervisor [employer] if recommended. Healthcare Provider Directory provided. Preferred Pharmacy: [facility]. Insurance: [employer]. Prescription Benefit: Yes. LW/HPOA: Pt denies having a LW/HPOA. Interested in the paperwork but does not want to complete it with a SW at this time. LW/HPOA packet provided. Social Service pamphlet provided. LNOK: Stephen Leary- . Living Arrangements: Pt lives with and three children in a two story home. The home has two or three steps to enter. Pt denies any issues navigating the steps. Pt states being I in ADLs. Transportation: Pt drives self and denies concerns with transportation. Pt's can drive as well. DME/HHC/SNF: Pt denies any DME. Pt then states she has a Cpap but does not use it. Pt reports the Cpap was ordered through Dr. Zhou. Pt plans to start using the Cpap. No hx of HHC or SNF stays. Pt states no concerns with going home at time of dc. Pt states no further concerns/needs. CM to follow. Advised pt to ask CM if any further question/concerns/needs arise, voices understanding. Pt Goal: Home. No needs. Plan:?Home.
[2022-11-19] MEDS: 0.9% Normal Saline 1,000 ML 75 ML IV (10:14)
[2022-11-19] MEDS: Metoprolol(XL)Succ 50 MG Tablet PO (10:59)
[2022-11-19] MEDS: Insulin Lispro 100 UNIT/ML INSULN.PEN SC (11:02)
--- NOTE | 2022-11-19 11:42 | DS.PCM_ITS ---
Providers Date of Admission: 11/18/22 Primary Care Physician: Dr. Calvin Waldrop MD Consultations 11/18/22 14:00 Consult: Cardiology Routine Consulting Provider: Calvin Piña Reason for Consult: NSTEMI EMERGENT Consult: No MD Notified: Yes Date Notified: 11/18/22 Time Notified: 11:05 Method of Notification: ED Physician Initiated Reason For Visit: NSTEMI Diagnosis Discharge Diagnosis (1) HTN (hypertension): Status: Chronic Code(s): I10 - Essential (primary) hypertension Qualifiers: Hypertension type: essential hypertension Qualified Code(s): I10 - Essential (primary) hypertension (2) Non-ST elevated myocardial infarction: Status: Acute Code(s): I21.4 - Non-ST elevation (NSTEMI) myocardial infarction Plan 1. Non-STEMI with hypertensive urgency/HTN ? Blood pressures are elevated, can resume her home blood pressure medications, will transition her daily metoprolol to twice daily dosing ? Appreciate cardiology's assistance ? Continue with the heparin drip and will trend troponins ? Cardiology has ordered an echo ? Plan will be for heart cath for further investigation ? She was started on Norvasc 2. DM2 ? We will hold her home metformin and placed on a sliding scale insulin ? Accu-Cheks AC at bedtime ? We will make adjustments as necessary 3. Anxiety/depression ? Stable ? Continue with her home medications DVT: Heparin drip Medications at Discharge Home Medications metformin 500 mg tablet 500 ea PO BID DIABETES 10/31/22 metoprolol succinate 50 mg tablet,extended release 24 hr 50 ea PO DAILY BLOOD PRESSURE 10/31/22 lisinopril 40 mg tablet 40 mg PO DAILY BLOOD PRESSURE 11/18/22 paroxetine HCl 10 mg tablet 10 mg PO DAILY DEPRESSION/ANXIETY 11/18/22 amlodipine 2.5 mg tablet 5 mg PO DAILY #60 tabs 11/19/22 aspirin 81 mg chewable tablet 81 mg PO DAILY@0800 #30 tabs 11/19/22 Hospital Course Operations None Procedures Cardiac catheterization Summary of Care Provided Minutes Spent on Discharge: 40 Hospital Course: Per HPI: JOSEPH RINCON, is a 47 F who presents to the hospital with chest pain.? She first noticed having some chest discomfort yesterday around her left shoulder and thought there might have been some shortness of breath associated with that.? She did have some nausea but no emesis.? She presented to the hospital today because she has had recurrent chest discomfort.? EKG was unremarkable however her troponin was elevated.? She was also found to have a history of hypertension but did not take her blood pressure medications this morning and so her blood pressure has been fairly elevated today. Hospital Course: 1. Non-STEMI with hypertensive urgency?47-year-old female presented to the hospital with chest pain that had started the day before admission. She had intermittent episodes throughout the night which is why she presented to the hospital. He did have some shortness of breath associated with these episodes. Of note her blood pressure on admission was over 200 systolic and given the fact that her heart cath was negative for any coronary artery disease, it is likely that the blood pressure was the cause of her non-STEMI and her chest pain. She was continued on her lisinopril as well as her metoprolol however Norvasc was added to her medication. She was also started on aspirin. She is currently feeling much better and denies any chest pain. I did discuss with her extensively the need to quit smoking which she understands. I discussed with her and her the plan for discharge today and they both expressed underst anding of the risk and benefits of going home and would like to go home today. 2. Type 2 diabetes and depression are chronic medical conditions which complicate her care. Her home medications were continued where appropriate Physical Exam Narrative General: Alert, Oriented x3, Cooperative, No apparent distress HEENT: Atraumatic, PERRLA, EOMI, Normocephalic Oral: Moist Mucosa Neck: Supple, No JVD Lungs: Clear to auscultation, Normal air movement, No rhonchi, No wheeze, No rales Cardiovascular: Regular rate, Regular Rhythm, Normal S1, Normal S2, No murmurs Abdomen: Soft, Non Tender, Non-Distended, No Hepato-splenomegaly Extremities: No edema, Capillary Refill Less than 3 Seconds Skin: No rashes, No breakdown Musculoskeletal: No Tenderness to Palpation of Joints or Extremities Neurological: Cranial nerves II-XII grossly intact, Motor Exam 5/5 strength throughout, Sensory exam intact to light touch and pain Psych/Mental Status: Normal Affect, Appropriate Weight / BMI Weight Weight: 166 lb 3.657 oz Body Mass Index (BMI) 28.5 ABG / Lab / Microbiology Data Result Diagrams: 11/19/22 03:46 11/19/22 03:46 Laboratory: Laboratory Results - last 24 hr 11/18/22 09:30: Total Bilirubin 0.50, Direct Bilirubin 0.13, AST 26, ALT 33, Alkaline Phosphatase 82, Total Protein 7.4, Albumin 3.4, Globulin 4.0 11/18/22 12:41: Troponin I High Sens 529 H* 11/18/22 16:15: Troponin I High Sens 494 H* 11/18/22 16:49: POC Glucose 203 H 11/18/22 17:03: APTT > 200.0 H* 11/18/22 21:56: POC Glucose 194 H 11/19/22 03:46: Sodium 138, Potassium 3.4 L, Chloride 104, Carbon Dioxide 28.0, Anion Gap 6, BUN 9, Creatinine 0.63, Estim Creat Clear Calc 97.38, Est GFR (MDRD) Af Amer 131, Est GFR (MDRD) Non-Af 108, BUN/Creatinine Ratio 14.3, Glucose 194 H, Calcium 7.7 L, Troponin I High Sens 307 H*, Triglycerides 227 H, Cholesterol 144, LDL Cholesterol 57, VLDL Cholesterol 45 H, HDL Cholesterol 42 11/19/22 03:46: WBC 5.1, RBC 3.74 L, Hgb 12.0, Hct 34.5 L, MCV 92.2, MCH 32.1 H, MCHC 34.8, RDW Std Deviation 41.3, RDW Coeff of Braxton 12.2, Plt Count 194, MPV 9.5, Immature Gran % (Auto) 0.200, Neut % (Auto) 33.7 L, Lymph % (Auto) 52.7 H, [place] % (Auto) 10.6 H, Eos % (Auto) 2.4, Baso % (Auto) 0.4, Absolute Neuts (auto) 1.7 L, Absolute Lymphs (auto) 2.69, Nucleated RBC % 0 11/19/22 03:46: APTT 63.5 H 11/19/22 03:46: Serum , Qual NEGATIVE 11/19/22 06:22: POC Glucose 171 H Radiography Diagnostic Testing: Radiology Impression Echocardiogram 11/18/22 12:47 Interpretation Summary The study was technically difficult. Contrast injection was performed. Left ventricular systolic function is normal. The estimated ejection fraction is 65 %. Trivial mitral valve insufficiency. Trivial tricuspid valve insufficiency. Unable to estimate RV systolic pressure/pulmonary artery pressure due to technically difficult study. No evidence for diastolic dysfunction. Ordering Physician: Calvin Piña Referring Physician: Calvin Waldrop Performed By: Andrew Hernandez RCS D/C Instructions Discharge Diet: Low fat / Low cholesterol Return to work on: 11/21/22 Call your doctor if you observe: Fever of 101 or Higher, Shortness of breath, Dizziness, Fainting spells, Swelling in the ankles, Chest pain and Increased palpitations (irregular heartbeat) Meaningful Use Info Meaningful Use Diagnoses (Choose all that apply): None applicable Discharge Plan Admission Admit Date/Time: 11/18/22 11:01 Attending Provider: Jay Kay Primary Care Provider: Calvin Waldrop Consulting Providers: Calvin Piña Discharge Orders/Prescriptions Prescriptions: New amlodipine 2.5 mg Tablet 5 mg PO DAILY Qty: 60 0RF aspirin 81 mg Tablet,Chewable 81 mg PO DAILY@0800 Qty: 30 0RF Continued metformin 500 mg tablet 500 ea PO BID metoprolol succinate 50 mg tablet extended release 24 hr 50 ea PO DAILY paroxetine HCl 10 mg tablet 10 mg PO DAILY lisinopril 40 mg tablet 40 mg PO DAILY Referrals / Follow Up: Calvin Waldrop MD [Primary Care Provider] - Within 1 Week Disposition Disposition (needs filled in before D/C Order can be placed): Home, Self Care Charges/Coding Visit Charges Inpatient E&M: 87326 Disch Hosp
[2022-11-19] MEDS: PARoxetine 10 MG Tablet PO (12:29)
[2022-11-19 12:35] LABS: Bedside Glucose 295 mg/dL (74-106)
== END 2022-11-19 13:28 | disposition home or self-care (01) | DRG 282 ==
LOC: ED 10:49 → PCU 11:14
PROVIDERS: Internal Medicine Cardiovascular Disease; Admitting Provider Family Medicine; Emergency Provider Emergency Medicine; PCP Family Medicine; Visit Provider Family Medicine
DX: I21.4 Non-ST elevation (NSTEMI) myocardial infarction (principal); E11.51 Type 2 diabetes mellitus with diabetic peripheral angiopathy without gangrene; E11.65 Type 2 diabetes mellitus with hyperglycemia; I24.9 Acute ischemic heart disease, unspecified; E11.59 Type 2 diabetes mellitus with other circulatory complications; F17.210 Nicotine dependence, cigarettes, uncomplicated; I10 Essential (primary) hypertension; I16.0 Hypertensive urgency; R00.0 Tachycardia, unspecified; F32.A Depression, unspecified; Z79.84 Long term (current) use of oral hypoglycemic drugs; Z82.3 Family history of stroke
CPT/HCPCS: 36415; 71045; 80048; 80061; 80076; 82962; 84484; 84703; 85025; 85379; 85610; 85730; 93005; 93306; 93458; 99152; 99153; 99285; 99406; J7030; Q9957; A4216; C1769; C1894; C8929; J2405; Q9967

== ENCOUNTER 2023-01-21 11:45 | Emergency (ER) | payer BC, SELFPAY ==
[2023-01-21 11:49] VITALS: BP 179/96; PULSE 110; RESP 16; TEMP 36.2; O2SAT 95; BMI 27.5
[2023-01-21 12:05] VITALS: O2SAT 99
--- NOTE | 2023-01-21 12:30 | EKG12_ITS ---
Test Reason : Blood Pressure : / mmHG Vent. Rate : 113 BPM Atrial Rate : 113 BPM P-R Int : 130 ms QRS Dur : 074 ms QT Int : 332 ms P-R-T Axes : 072 062 074 degrees QTc Int : 455 ms Sinus tachycardia Otherwise normal ECG Confirmed by GAVI LEBLANC, ALINA ([id number]), writer editor JAVID JAMES ([id number]) on 01/25/2023 11:01:47 AM Referred By: EULOGIO Confirmed By:ALINA GATICA MD
[2023-01-21 12:40] LABS: Absolute Lymphocyte Count 2.33 X10^3/uL (0.83-4.51); Absolute Neutrophil Count 4.7 X10^3/uL (2.0-7.7); Basophil# 0.04 X10^3/uL; Basophil% 0.5 % (0-1); Eosinophil# 0.21 X10^3/uL; Eosinophils% 2.6 % (0-5); Hematocrit 41.4 % (37-47); Hemoglobin 13.8 g/dL (12.0-15.0); Lymphocyte # 2.33 X10^3/ul (0.83-4.51); Lymphocyte % 29.3 % (19-41); Mean Corp Hgb Conc 33.3 g/dL (32-36); Mean Corpuscular Hgb 31.9 pg (27.0-32.0); Mean Corpuscular Volume 95.8 fL (81-99); Mean Platelet Vol. 9.8 fl (6.2-12.0); Monocyte% 7.6 % (0-10); NRBC Flagged by Analyzer 0 % (0-5); Neutrophil # 4.74 X10^3/uL (2.7-7.7); Neutrophil % 59.7 % (47-70); Platelet Count 314 K/mm3 (150-450); RBC Distribution Width CV 12.7 % (11.6-14.6); RBC Distribution Width SD 44.4 fl (35.1-43.9); Red Blood Count 4.32 M/mm3 (4.2-5.4); White Blood Count 7.9 K/mm3 (4.4-11.0)
[2023-01-21 12:42] VITALS: O2SAT 96
[2023-01-21] MEDS: Aspirin 81 MG TAB.CHEW 162 MG PO (12:42)
--- NOTE | 2023-01-21 12:45 | RAD_ITS ---
STUDY: X-RAY CHEST REASON FOR EXAM: Female, 47 years old. Chest pain TECHNIQUE: Single AP portable view of the chest. COMPARISON: Comparison is made with prior study dated 11/18/2022. FINDINGS: EKG electrodes are seen. The lungs are clear and expanded. There is no demonstrated pleural abnormality. Normal size heart. Normal mediastinum and aviva. Normal visualized pulmonary arteries. Normal visualized aortic arch and descending thoracic aorta. Normal visualized thoracic spine. Normal visualized ribs, clavicles, and shoulders. There is no demonstrated abnormality of the visualized soft tissue structures of the upper abdomen. RAD/Chest 1 View (Portable) IMPRESSION: Normal x-ray examination of the chest. Electronically Signed: Guy Roger MD at 13:06 EST ,
[2023-01-21 12:57] LABS: Anion Gap 8 (5-15); BUN 11 mg/dL (7-18); BUN/Creat Ratio 11.8 RATIO (10-20); Calcium,Total 8.9 mg/dL (8.5-10.1); Chloride 103 mmol/L (98-107); Creatinine, Serum 0.93 mg/dL (0.55-1.02); EST Glomerular Filtration Rate 69 mL/min (>60); Est Glom Filt Rate - Afr Amer 83 mL/min (>60); Estimated Creatinine Clearance 65.97 ml/min; Glucose 262 mg/dL (74-106); Potassium 3.6 mmol/L (3.5-5.1); Sodium Level 138 mmol/L (136-145); Troponin-I HS (w/2H Reflex) 4 pg/mL (3.0-54.0)
[2023-01-21 13:05] VITALS: BP 162/82; PULSE 96; RESP 18; O2SAT 94
[2023-01-21 13:05] LABS: D-Dimer Quantitative (DVT/PE) < 0.27 FEU/ug/m (0.27-0.49)
[2023-01-21 14:07] VITALS: BP 171/80; PULSE 95; RESP 15; O2SAT 98
--- NOTE | 2023-01-21 14:08 | EDS_ITS ---
HPI History of Present Illness Chief Complaint: Chest Pain Informant: patient Onset/Context/Timing Onset: Today Activity at onset: gradual Timing: Intermittent and Lasts (Couple of minutes) Quality: Positive for Pressure Location: Substernal and Left Parasternal Worsened By: Nothing Relieved By: Nothing Associated Symptoms: Positive for Nausea, Dyspnea, Cough, Lightheadedness and Palpitations; Negative for Vomiting, Diaphoresis, Fever or Acid Reflux Narrative Narrative: Patient presents with chest pain that began today. Patient states she was sitting when the pain began. Patient states it has been intermittent throughout the day. Patient states it only last for couple minutes. Patient describes as a pressure. Patient states it is over the substernal and left parasternal area. Patient states nothing makes it better nothing makes it worse. Patient states she took 2 baby aspirin at home. Patient admits to some nausea but denies any vomiting. Patient admits to some shortness of breath and cough. Patient also admits to some lightheadedness and palpitations. Patient states she has some pain that radiates up into her jaw and her jaw feels numb at times. CVD Risk Factors: Positive for Hypertension, Diabetes and Smoking; Negative for Hypercholesterolemia or Family History 1' </=55 PE Risk Factors: Negative for Recent Travel/Surgery, Recent Immobilization, Prior DVT or PE, Cancer or OCP + Smoking + >/=35 PFSH PFSH Medical History Acute lumbar myofascial strain Anxiety Depression Diabetes History of left heart catheterization (LHC) (~11/19/22) HTN (hypertension) Pancreatitis Sleep apnea Strain of left hip Home Medications metformin 500 mg tablet 500 ea PO BID DIABETES 10/31/22 [History Last Taken 11/17/22 21:30] metoprolol succinate 50 mg tablet,extended release 24 hr 50 ea PO DAILY BLOOD PRESSURE 10/31/22 [History Last Taken 11/17/22 09:00] lisinopril 40 mg tablet 40 mg PO DAILY BLOOD PRESSURE 11/18/22 [History Last Taken 11/17/22 09:00] paroxetine HCl 10 mg tablet 10 mg PO DAILY DEPRESSION/ANXIETY 11/18/22 [History Last Taken 11/17/22 09:00] amlodipine 2.5 mg tablet 5 mg PO DAILY #60 tabs 11/19/22 [Rx Last Taken Unknown] aspirin 81 mg chewable tablet 81 mg PO DAILY@0800 #30 tabs 11/19/22 [Rx Last Taken Unknown] bupropion HCl 150 mg 24 hr tablet, extended release 150 mg PO DAILY 01/21/23 [History Last Taken Unknown] empagliflozin 10 mg tablet (Jardiance) 10 mg PO DAILY 01/21/23 [History Last Taken Unknown] Allergy/AdvReac Type Severity Reaction Status Date / Time No Known Allergies Allergy Verified 11/18/22 09:24 Family History Grandfather CVA (cerebral vascular accident) Diabetes Mother Cancer Father Hypertension Grandmother Hypertension Diabetes Surgical History H/O tooth extraction History of cholecystectomy plantar fasciitis release Social History Smoking Status: Current every day smoker tobacco type: cigarettes alcohol intake: current alcohol intake frequency: a few times a month Alcohol type: hard liquor ROS ROS ED Constitutional Constitutional ED: Denies chills or fever(s) Eyes Eyes: Denies blurry vision or change in vision ENT ENT ED: Denies rhinorrhea or sore throat Cardiovascular Cardiovascular: Reports chest pain and palpitations Respiratory/Chest Respiratory/Chest: Reports cough and dyspnea Gastrointestinal Gastrointestinal: Reports nausea; Denies abdominal pain or vomiting Genitourinary Genitourinary ED: Denies dysuria or hematuria Musculoskeletal Musculoskeletal: Denies back pain or neck pain Integumentary Denies abscess or rash Neurologic Neurologic: Reports headache(s); Denies weakness Allergic/Immunologic Allergic/Immunologic ED: Denies mouth swelling or urticaria EXAM Physical Exam Const Vital Signs: 01/21/23 11:49 01/21/23 12:05 01/21/23 12:42 Temperature 97.2 F L Temperature Source Temporal Pulse Rate 110 H Respiratory Rate 16 Blood Pressure 179/96 H Blood Pressure Mean 123 Pulse Ox 95 99 96 Oxygen Delivery Method Room Air Room Air Room Air 01/21/23 13:05 01/21/23 14:07 Temperature Temperature Source Pulse Rate 96 95 Respiratory Rate 18 15 Blood Pressure 162/82 H 171/80 H Blood Pressure Mean 108 110 Pulse Ox 94 98 Oxygen Delivery Method Room Air Positive well nourished and well developed General Appearance ED: well developed and NAD HEENT normocephalic and atraumatic Eyes PERRL and EOMs intact bilaterally Neck supple and no JVD Chest Wall palpation of chest normal Resp normal respiratory effort and clear to auscultation bilaterally Effort and Inspection: Negative for respiratory distress Cardio regular rate, regular rhythm and no murmurs GI normal to inspection, nondistended, normoactive bowel sounds, soft to palpation, non-tender and non-distended Extremity normal to inspection General Extremety ED: Negative for edema or tenderness General Extremity: Negative for edema Neuro oriented x3, CN's II-XII intact bilaterally and no sensory deficits noted Sensorium / Orientation: awake and alert Motor Exam: strength 5/5 throughout Psych mental status grossly normal Heart Score History: Slightly/Non-Suspicious ECG: Normal Age: </= 45 years Risk Factors: >/= 3 Risk Factors or History of CAD Troponin: </= Normal Limit Score: 2 MDM MDM MDM Narrative Medical decision making narrative: Differential diagnosis includes cardiac ischemia, cardiac dysrhythmia, pulmonary embolism, pneumonia, pneumothorax, pericarditis, hypertensive urgency, and COPD exacerbation. CBC will be obtained to assess for leukocytosis and anemia. EKG will be obtained to assess for cardiac dysrhythmia and cardiac ischemia. Basic metabolic profile will be obtained to assess for renal function and electrolyte abnormality. D-dimer will be obtained to assess for pulmonary embolism. Chest x-ray will be obtained to assess for pneumonia, pneumothorax, and cardiomegaly. High-sensitivity troponin will be obtained to assess for cardiac ischemia. 2- hour repeat high-sensitivity troponin will be obtained to assess for ongoing cardiac ischemia. Lab Data Attestation: I reviewed the patient's lab results. Lab results narrative: CBC was reviewed and was within normal limits. Basic metabolic profile was reviewed and glucose was mildly elevated at 262. The remainder was within normal limits. D-dimer was reviewed and was negative. High-sensitivity troponin was reviewed and was normal at 4. 2-hour repeat high-sensitivity troponin was reviewed and was normal at less than 3. Labs: Laboratory Results - last 24 hr 01/21/23 01/21/23 01/21/23 12:05 12:05 12:05 WBC 7.9 RBC 4.32 Hgb 13.8 Hct 41.4 MCV 95.8 MCH 31.9 MCHC 33.3 RDW Std Deviation 44.4 H RDW Coeff of Braxton 12.7 Plt Count 314 MPV 9.8 Immature Gran % (Auto) 0.300 Neut % (Auto) 59.7 Lymph % (Auto) 29.3 [place] % (Auto) 7.6 Eos % (Auto) 2.6 Baso % (Auto) 0.5 Absolute Neuts (auto) 4.7 Absolute Lymphs (auto) 2.33 Nucleated RBC % 0 D-Dimer Quant (PE/DVT) < 0.27 L Sodium 138 Potassium 3.6 Chloride 103 Carbon Dioxide 27.0 Anion Gap 8 BUN 11 Creatinine 0.93 Estim Creat Clear Calc 65.97 Est GFR (MDRD) Af Amer 83 Est GFR (MDRD) Non-Af 69 BUN/Creatinine Ratio 11.8 Glucose 262 H Calcium 8.9 Troponin I High Sens 4 01/21/23 14:05 WBC RBC Hgb Hct MCV MCH MCHC RDW Std Deviation RDW Coeff of Braxton Plt Count MPV Immature Gran % (Auto) Neut % (Auto) Lymph % (Auto) [place] % (Auto) Eos % (Auto) Baso % (Auto) Absolute Neuts (auto) Absolute Lymphs (auto) Nucleated RBC % D-Dimer Quant (PE/DVT) Sodium Potassium Chloride Carbon Dioxide Anion Gap BUN Creatinine Estim Creat Clear Calc Est GFR (MDRD) Af Amer Est GFR (MDRD) Non-Af BUN/Creatinine Ratio Glucose Calcium Troponin I High Sens < 3 L Radiography Chest X-Ray - ED: 1 View, Read by ED Physician, Read by Radiologist, Normal and No Acute Disease Diagnostic Testing: Clinical Impression(s) from Imaging Studies Chest X-Ray 01/21/23 12:45 IMPRESSION: Normal x-ray examination of the chest. Electronically Signed: Guy Roger MD at 13:06 EST , Portable 1 view chest x-ray was obtained. On my independent interpretation, lung benotn are clear. There is normal cardiac silhouette. Bony thorax is normal. There is no acute process noted. Radiologist also interpreted the x- ray and agrees. EKG Initial EKG: Attestation: I personally reviewed and interpreted this EKG as follows: Interpretation: No Acute Injury Pattern and Sinus Tachycardia (113) Comments: EKG was obtained. On my independent interpretation, it showed a sinus tachycardia with a rate of 113. VT interval, QRS interval, and QTc intervals were all normal. [place] was normal. There are no acute ST or T wave changes. Prior EKG tracings: available for review Prior: Unchanged (11/19/2022) Treatment and Re-Evaluation Narrative: Patient was given 2 baby aspirin here. Patient is feeling better on reevaluation. Patient was advised of her findings. Patient has a HEART score of 2. Patient was advised that this is low risk for acute cardiac event. Patient was instructed to follow-up with her primary care physician in 5 to 7 days. Patient understands and is agreeable with plan. All questions were answered. Discharge Plan Triage Chief Complaint: Chest Pain ED Provider: David Jacobs Dx/Rx/DC Orders Clinical Impression: Chest pain, HTN (hypertension) Instructions: ED Chest Pain, Uncertain Cause Prescriptions: No Action metformin 500 mg tablet 500 ea PO BID metoprolol succinate 50 mg tablet extended release 24 hr 50 ea PO DAILY paroxetine HCl 10 mg tablet 10 mg PO DAILY lisinopril 40 mg tablet 40 mg PO DAILY amlodipine 2.5 mg Tablet 5 mg PO DAILY Qty: 60 0RF aspirin 81 mg Tablet,Chewable 81 mg PO DAILY@0800 Qty: 30 0RF bupropion HCl 150 mg tablet extended release 24 hr 150 mg PO DAILY Label Comments: take 1 tablet by mouth once daily Jardiance 10 mg tablet 10 mg PO DAILY Label Comments: take 1 tablet by mouth once daily Primary Care Provider: Milana Garcia Referrals: Milana Garcia, [Primary Care Provider] - 5-7 Days Disposition Disposition: Home, Self Care
[2023-01-21 14:30] LABS: Reflex Troponin-HS? (from REC) Y
[2023-01-21 14:53] LABS: Troponin-I HS < 3 pg/mL (3.0-54.0)
[2023-01-21 15:06] VITALS: BP 165/82; PULSE 90; RESP 14; O2SAT 98
== END 2023-01-21 15:07 | disposition home or self-care (01) ==
PROVIDERS: Emergency Provider Emergency Medicine; PCP Family Medicine; Visit Provider Emergency Medicine
DX: R07.9 Chest pain, unspecified (principal); E11.9 Type 2 diabetes mellitus without complications; F17.210 Nicotine dependence, cigarettes, uncomplicated; R06.02 Shortness of breath; R11.0 Nausea; I10 Essential (primary) hypertension; F41.9 Anxiety disorder, unspecified; F32.A Depression, unspecified; R05.9 Cough, unspecified
CPT/HCPCS: 71045; 80048; 84484; 85025; 85379; 93005; 99284

== ENCOUNTER 2023-03-22 17:47 | Emergency (ER) | payer BC, SELFPAY ==
[2023-03-22 17:49] VITALS: BP 88/55; PULSE 79; RESP 24; TEMP 35.8; O2SAT 97; BMI 26.5
--- NOTE | 2023-03-22 18:13 | EKG12_ITS ---
Test Reason : DIZZY Blood Pressure : / mmHG Vent. Rate : 068 BPM Atrial Rate : 068 BPM P-R Int : 130 ms QRS Dur : 086 ms QT Int : 408 ms P-R-T Axes : 038 064 063 degrees QTc Int : 433 ms Normal sinus rhythm Normal ECG Confirmed by STEFFANY LEBLANC, IFRAH ([id number]), editorial assistant JAVID JAMES ([id number]) on 03/25/2023 9:16:00 AM Referred By: GAUTAM Confirmed By:IFRAH JETER MD
[2023-03-22 18:28] LABS: Absolute Lymphocyte Count 2.49 X10^3/uL (0.83-4.51); Absolute Neutrophil Count 7.1 X10^3/uL (2.0-7.7); Basophil# 0.05 X10^3/uL; Basophil% 0.5 % (0-1); Eosinophil# 0.22 X10^3/uL; Hematocrit 41.5 % (37-47); Hemoglobin 13.6 g/dL (12.0-15.0); Lymphocyte # 2.49 X10^3/ul (0.83-4.51); Lymphocyte % 22.7 % (19-41); Mean Corp Hgb Conc 32.8 g/dL (32-36); Mean Corpuscular Volume 97.6 fL (81-99); Mean Platelet Vol. 9.7 fl (6.2-12.0); Monocyte# 1.09 X10^3/uL; Monocyte% 9.9 % (0-10); NRBC Flagged by Analyzer 0 % (0-5); Neutrophil # 7.07 X10^3/uL (2.7-7.7); Neutrophil % 64.4 % (47-70); Platelet Count 316 K/mm3 (150-450); RBC Distribution Width CV 13.1 % (11.6-14.6); RBC Distribution Width SD 46.9 fl (35.1-43.9); Red Blood Count 4.25 M/mm3 (4.2-5.4)
[2023-03-22 18:31] VITALS: BP 95/60; PULSE 67; RESP 16; O2SAT 99
[2023-03-22] MEDS: 0.9% Normal Saline 1,000 ML 1000 ML IV ×2 (18:34→21:24)
[2023-03-22 18:44] LABS: ALB/GLOB Ratio 1.1 RATIO (0.9-2.4); AST(SGOT) 20 U/L (15-37); Alanine Aminotransfer ALT/SGPT 33 U/L (13-56); Alkaline Phosphatase 71 U/L (45-117); Anion Gap 4 (5-15); BUN 18 mg/dL (7-18); BUN/Creat Ratio 10.8 RATIO (10-20); Calcium,Total 8.9 mg/dL (8.5-10.1); Chloride 105 mmol/L (98-107); Creatinine, Serum 1.67 mg/dL (0.55-1.02); EST Glomerular Filtration Rate 35 mL/min (>60); Est Glom Filt Rate - Afr Amer 43 mL/min (>60); Estimated Creatinine Clearance 36.74 ml/min; Globulin 3.7 g/dL (2.2-4.2); Glucose 146 mg/dL (74-106); Potassium 4.4 mmol/L (3.5-5.1); Protein, Total 7.7 g/dL (6.4-8.2); Sodium Level 133 mmol/L (136-145)
--- NOTE | 2023-03-22 19:01 | EX.ED.DYSGE1 ---
HPI History of Present Illness Chief Complaint: Dizziness Detail of Chief Complaint: Patient defines dizziness as lightheadedness Informant: patient Onset/Context/Timing Onset: Hours Context: Sudden Onset Timing: Continuous Quality: Lightheadedness with documented temperature of 71/55 Location: Work Current Severity: Moderate Maximum Severity: Severe Worsened by: Upper Relieved by: Nothing Associated Symptoms Associated Symptoms: Tunnel vision Narrative Narrative: Patient is a 47-year-old woman who presents with dizziness, which she defines as lightheadedness. Patient denies fever, chills night sweats. She denies headache, visual, ocular auditory symptoms. She denies trouble speech or swallowing. She denies shortness of breath or chest pain. She denies abdominal pain or back pain. She denies nausea, vomiting or diarrhea. She denies dysuria, frequency, urgency or hematuria. She denies paresthesia, anesthesia or motor weakness. She denies vertigo. She denies skin lesion. Prior similar symptoms: No Recent Illness/Hospitalization: No [facility] Medical History Acute lumbar myofascial strain Anxiety Depression Diabetes History of left heart catheterization (LHC) (~11/19/22) HTN (hypertension) Pancreatitis Sleep apnea Strain of left hip Home Medications metformin 500 mg tablet 500 ea PO BID DIABETES 10/31/22 [History Last Taken 11/17/22 21:30] metoprolol succinate 50 mg tablet,extended release 24 hr 50 ea PO DAILY BLOOD PRESSURE 10/31/22 [History Last Taken 11/17/22 09:00] lisinopril 40 mg tablet 40 mg PO DAILY BLOOD PRESSURE 11/18/22 [History Last Taken 11/17/22 09:00] amlodipine 2.5 mg tablet 5 mg PO DAILY #60 tabs 11/19/22 [Rx Last Taken Unknown] aspirin 81 mg chewable tablet 81 mg PO DAILY@0800 #30 tabs 11/19/22 [Rx Last Taken Unknown] bupropion HCl 150 mg 24 hr tablet, extended release 150 mg PO DAILY 01/21/23 [History Last Taken Unknown] empagliflozin 10 mg tablet (Jardiance) 10 mg PO DAILY 01/21/23 [History Last Taken Unknown] albuterol sulfate 90 mcg/actuation aerosol inhaler 2 puff inhalation Q6H PRN shortness of breath or wheezing #8.5 grams 02/12/23 [Rx Last Taken Unknown] citalopram 20 mg tablet 20 mg PO DAILY 03/22/23 [History Last Taken Unknown] Allergy/AdvReac Type Severity Reaction Status Date / Time No Known Allergies Allergy Verified 03/22/23 17:50 Family History Grandfather CVA (cerebral vascular accident) Diabetes Mother Cancer Father Hypertension Grandmother Hypertension Diabetes Surgical History H/O tooth extraction History of cholecystectomy plantar fasciitis release Social History (Updated 03/22/23 @ 19:[address] Lauri Gaviria MD) household members: spouse Smoking Status: Current every day smoker tobacco type: cigarettes alcohol intake: current alcohol intake frequency: a few times a month Alcohol type: hard liquor substance use type: does not use ROS ROS ED Constitutional Constitutional ED: Denies chills, fever(s), subjective, sweats or weight loss Eyes Eyes: Reports change in vision bilateral; Denies blurry vision or diplopia ENT ENT ED: Denies ear pain, rhinorrhea or sore throat Cardiovascular Cardiovascular: Denies chest pain, orthopnea, palpitations, paroxysmal nocturnal dyspnea or racing heartbeat Respiratory/Chest Respiratory/Chest: Denies cough, dyspnea, dyspnea on exertion, orthopnea or paroxysmal nocturnal dyspnea Gastrointestinal Gastrointestinal: Denies abdominal pain, constipation, diarrhea, melena, nausea or vomiting Genitourinary Genitourinary ED: Denies dysuria, hematuria or urinary frequency Musculoskeletal Musculoskeletal: Denies arthralgias, back pain, myalgias or neck pain Integumentary Denies Abrasions or rash Neurologic Neurologic: Reports weakness; Denies headache(s) or paresthesias Endocrine Endocrinology: Denies cold intolerance or heat intolerance Hematologic/Lymphatic Hematologic/Lymphatic: Reports systems reviewed and no addt'l complaints, except as documented EXAM Physical Exam Const Vital Signs: 03/22/23 17:49 03/22/23 18:31 03/22/23 18:39 Temperature 96.4 F L Temperature Source Temporal Pulse Rate 79 67 Respiratory Rate 24 H 16 Respiratory Effort Normal Respiratory Pattern Normal Blood Pressure 88/55 L 95/60 Blood Pressure Mean 66 71 Pulse Ox 97 99 Oxygen Delivery Method Room Air Room Air 03/22/23 20:09 03/22/23 21:25 03/22/23 22:25 Temperature Temperature Source Pulse Rate 71 69 76 Respiratory Rate 18 18 18 Respiratory Effort Respiratory Pattern Blood Pressure 101/66 106/59 L 107/62 Blood Pressure Mean 77 74 77 Pulse Ox 98 97 100 Oxygen Delivery Method Room Air Positive well nourished and well developed General Appearance ED: well developed and NAD; Negative for cyanotic, diaphoretic or pallor HEENT Reports dry mucous membranes HEENT Narrative: Head is atraumatic normocephalic. Pupils are equal round and reactive. Extraocular muscles are intact. Ears are normal. Nares are patent. Posterior pharynx is normal. Mouth ED: Yes dry mucous membranes Mouth: dry mucous membranes Eyes PERRL and EOMs intact bilaterally General Eye ED: Negative for pale conjunctiva or scleral icterus Neck no lymphadenopathy, supple and no JVD Chest Wall inspection of chest normal and palpation of chest normal Resp normal respiratory effort and clear to auscultation bilaterally Cardio regular rate, regular rhythm, S1 normal heart sound, S2 normal heart sound and no murmurs GI normal to inspection, nondistended, normoactive bowel sounds, non-tender, non-distended and no masses; Negative for hepatosplenomegaly Back/Spine no CVA tenderness Extremity Extremity Narrative: There is slight model lean and delayed capillary refill. General Extremety ED: Negative for edema or tenderness General Extremity: Negative for edema Neuro oriented x3, CN's II-XII intact bilaterally and no sensory deficits noted Sensorium / Orientation: alert Psych mental status grossly normal Skin No no rashes or lesions noted, no wounds and skin turgor normal Skin Narrative: Patient has mottling noted. General Skin Exam: Negative for elasticity normal, jaundice or pallor MDM MDM MDM Narrative Medical decision making narrative: Patient is hypotensive. There is no obvious reason why she is hypotensive is on no new meds. She denies symptoms of his suggest GI bleed or infectious process. Work-up included a CBC, polyp, UA Lab Data Attestation: I reviewed the patient's lab results. Lab results narrative: CBC is a normal. Comprehensive metabolic panel is remarkable for a creatinine of 1.67 with a GFR of 35. Glucose is slight elevated 146 with a normal CO2 and anion gap. Liver enzymes are normal. 1 L of normal saline was ordered. Patient's initial blood pressure supine was 88/55. Creatinine was normal October 2022 at 0.67. Creatinine was 0.9 01 January 2023. Today's creatinine is 1.67. Labs: Laboratory Results - last 24 hr 03/22/23 03/22/23 03/22/23 18:15 18:15 18:15 WBC 11.0 RBC 4.25 Hgb 13.6 Hct 41.5 MCV 97.6 MCH 32.0 MCHC 32.8 RDW Std Deviation 46.9 H RDW Coeff of Braxton 13.1 Plt Count 316 MPV 9.7 Immature Gran % (Auto) 0.500 Neut % (Auto) 64.4 Lymph % (Auto) 22.7 [place] % (Auto) 9.9 Eos % (Auto) 2.0 Baso % (Auto) 0.5 Absolute Neuts (auto) 7.1 Absolute Lymphs (auto) 2.49 Nucleated RBC % 0 Sodium 133 L Potassium 4.4 Chloride 105 Carbon Dioxide 24.0 Anion Gap 4 L BUN 18 Creatinine 1.67 H Estim Creat Clear Calc 36.74 Est GFR (MDRD) Af Amer 43 L Est GFR (MDRD) Non-Af 35 L BUN/Creatinine Ratio 10.8 Glucose 146 H Lactic Acid 1.4 Calcium 8.9 Total Bilirubin 0.30 AST 20 ALT 33 Alkaline Phosphatase 71 Total Protein 7.7 Albumin 4.0 Globulin 3.7 Albumin/Globulin Ratio 1.1 Urine Color Urine Clarity Urine pH Ur Specific [place] Urine Protein Urine Glucose (UA) Urine Ketones Urine Occult Blood Urine Nitrite Urine Bilirubin Urine Urobilinogen Ur Leukocyte Esterase Urine RBC Urine WBC Ur Squamous Epith Cells Amorphous Sediment Urine Bacteria Urine Mucus 03/22/23 20:20 WBC RBC Hgb Hct MCV MCH MCHC RDW Std Deviation RDW Coeff of [place]xton Plt Count MPV Immature Gran % (Auto) Neut % (Auto) Lymph % (Auto) [place] % (Auto) Eos % (Auto) Baso % (Auto) Absolute Neuts (auto) Absolute Lymphs (auto) Nucleated RBC % Sodium Potassium Chloride Carbon Dioxide Anion Gap BUN Creatinine Estim Creat Clear Calc Est GFR (MDRD) Af Amer Est GFR (MDRD) Non-Af BUN/Creatinine Ratio Glucose Lactic Acid Calcium Total Bilirubin AST ALT Alkaline Phosphatase Total Protein Albumin Globulin Albumin/Globulin Ratio Urine Color Yellow Urine Clarity Sl. Cloudy Urine pH 6.5 Ur Specific [place] 1.005 Urine Protein Negative Urine Glucose (UA) 1000 H Urine Ketones Negative Urine Occult Blood Negative Urine Nitrite Negative Urine Bilirubin Negative Urine Urobilinogen Normal Ur Leukocyte Esterase 100 H Urine RBC 0 SEEN Urine WBC 5-10 SEEN Ur Squamous Epith Cells 0-5 SEEN Amorphous Sediment 1+ URATE Urine Bacteria 0 SEEN Urine Mucus 0 SEEN EKG Initial EKG: Attestation: I personally reviewed and interpreted this EKG as follows: Interpretation: Sinus Rhythm (Rate is 68 and EKG is normal. CO interval is 130 ms. Cures duration 86 ms. QT duration 408 ms. [place] is normal.) Treatment and Re-Evaluation :: Patient did ambulate after first liter. She states she did get lightheaded walking back to the room. Most recent blood pressure is 101/66. Patient states her systolic blood pressure is normally 130+. Second liter of normal saline was ordered. Patient was reassessed at 2238. Blood pressure was 118. Patient was able to walk to the restroom without symptoms. She was instructed to follow-up with her doctor to have her blood work reassessed since her creatinine was elevated. Discharge Plan Triage Chief Complaint: Dizziness ED Provider: Lauri Gaviria Dx/Rx/DC Orders Clinical Impression: Acute hypotension, Type 2 diabetes mellitus, Hypertriglyceridemia, HTN (hypertension), Acute kidney insufficiency Instructions: ED Low Blood Pressure, All Causes, ED Renal Insufficiency Prescriptions: No Action metformin 500 mg tablet 500 ea PO BID metoprolol succinate 50 mg tablet extended release 24 hr 50 ea PO DAILY albuterol sulfate 90 mcg/actuation HFA aerosol inhaler 2 puff inhalation Q6H PRN (Reason: shortness of breath or wheezing) Qty: 8.5 0RF lisinopril 40 mg tablet 40 mg PO DAILY amlodipine 2.5 mg Tablet 5 mg PO DAILY Qty: 60 0RF aspirin 81 mg Tablet,Chewable 81 mg PO DAILY@0800 Qty: 30 0RF bupropion HCl 150 mg tablet extended release 24 hr 150 mg PO DAILY Label Comments: take 1 tablet by mouth once daily Jardiance 10 mg tablet 10 mg PO DAILY Label Comments: take 1 tablet by mouth once daily citalopram 20 mg tablet 20 mg PO DAILY Label Comments: take 1 tablet by mouth once daily Primary Care Provider: Milana Garcia Referrals: Milana Garcia, DO [Primary Care Provider] - 3-5 Days Activity Restrictions/Additional Instructions: Call your doctor in the morning to have repeat blood work in 3 to 5 days. Let them know that your creatinine is elevated. Disposition Disposition: Home, Self Care
[2023-03-22 19:04] LABS: Lactic Acid 1.4 mmol/L (0.4-1.9)
[2023-03-22 20:09] VITALS: BP 101/66; PULSE 71; RESP 18; O2SAT 98
[2023-03-22 20:27] LABS: Bacteria 0 SEEN /hpf (None Seen); Mucous, Urine 0 SEEN /hpf (<or=2+); Red Blood Cells-Urine 0 SEEN /hpf (0-5)
[2023-03-22 20:34] LABS: Color, Urine Yellow (Yellow); Glucose, Dipstick 1000 mg/dl (Normal); Ketone-Dipstick Negative (Negative); Leukocyte Esterase-Dipstick 100 /ul (Negative); Nitrite-Dipstick Negative (Negative); Occult Blood-Urine Negative /ul (Negative); Protein-Dipstick Negative (Negative); Specific Gravity, Urine 1.005 (1.002-1.030); Urine Bilirubin Dipstick Negative (Negative); Urine Clarity Sl. Cloudy (Clear); Urine Urobilinogen Normal (Normal); Urine pH 6.5 (5.0 - 8.0)
[2023-03-22 20:54] LABS: Amorphous Sediment 1+ URATE; Squamous Epithelial Cells - UA 0-5 SEEN /hpf (5-10); White Blood Cells 5-10 SEEN /hpf (0-5)
[2023-03-22 21:25] VITALS: BP 106/59; PULSE 69; RESP 18; O2SAT 97
[2023-03-22 22:25] VITALS: BP 107/62; PULSE 76; RESP 18; O2SAT 100
[2023-03-22 22:52] VITALS: BP 111/69; PULSE 71; RESP 18; O2SAT 98
== END 2023-03-22 22:55 | disposition home or self-care (01) ==
PROVIDERS: Emergency Provider Emergency Medicine; PCP Family Medicine; Visit Provider Emergency Medicine
DX: I95.9 Hypotension, unspecified (principal); E11.9 Type 2 diabetes mellitus without complications; F17.210 Nicotine dependence, cigarettes, uncomplicated; N28.9 Disorder of kidney and ureter, unspecified; I10 Essential (primary) hypertension; E78.1 Pure hyperglyceridemia; Z79.82 Long term (current) use of aspirin
CPT/HCPCS: 80053; 81001; 83605; 85025; 93005; 96360; 99284; J7030; A4216

== ENCOUNTER 2023-04-09 22:22 | Inpatient (IN) | payer BC, SELFPAY ==
[2023-04-09 22:23] VITALS: BP 94/57; PULSE 98; RESP 16; TEMP 36.3; O2SAT 97; BMI 26.8
[2023-04-09 22:50] VITALS: BP 90/54; PULSE 88; RESP 22; O2SAT 95
--- NOTE | 2023-04-09 23:00 | EKG12_ITS ---
Test Reason : CP Blood Pressure : / mmHG Vent. Rate : 086 BPM Atrial Rate : 086 BPM P-R Int : 130 ms QRS Dur : 084 ms QT Int : 378 ms P-R-T Axes : 051 055 054 degrees QTc Int : 452 ms Normal sinus rhythm Normal ECG Confirmed by SAIRA LEBLANC, YADIRA ([id number]), sound editor JAVID JAMES ([id number]) on 04/12/2023 11:30:35 A M Referred By: ALEX Confirmed By:VINICIO CHÁVEZ MD
--- NOTE | 2023-04-09 23:04 | ED.VIS.CHEST ---
HPI History of Present Illness Chief Complaint: Chest Pain Informant: patient Onset/Context/Timing Onset: Hours Activity at onset: sudden Timing: Continuous Quality: Positive for Aching and Pressure Location: Substernal, Right Parasternal, Left Parasternal, Right Chest, Left Chest and - (Jaw and neck) Worsened By: - (Certain activities) Relieved By: Nothing Associated Symptoms: Positive for Nausea, Diaphoresis, Dyspnea, Cough, Lightheadedness, Acid Reflux and Palpitations; Negative for Vomiting or Fever Narrative Narrative: Patient presents with chest pain that began tonight. Patient states it began a few hours prior to arrival. Patient describes it as aching and pressure. Patient states it began rather suddenly while she was eating dinner tonight. Patient states that this diffuse across her chest. Patient states it radiates into her jaw. Patient states it is worse with certain activities. Patient admits to some nausea but denies any vomiting. Patient denies any fevers or chills. Patient admits to some cough and shortness of breath. Patient also admits to some lightheadedness and reflux. Patient also admits to some palpitations where she feels like her heart is racing. CVD Risk Factors: Positive for Diabetes and Smoking; Negative for Hypertension, Hypercholesterolemia or Family History 1' </=55 PE Risk Factors: Negative for Recent Travel/Surgery, Recent Immobilization, Prior DVT or PE, Cancer or OCP + Smoking + >/=35 TAD Risk Factors: Negative for Hypertension [facility] Medical History Acute lumbar myofascial strain Anxiety Depression Diabetes History of left heart catheterization (LHC) (~11/19/22) HTN (hypertension) Pancreatitis Sleep apnea Strain of left hip Home Medications metformin 500 mg tablet 500 ea PO BID DIABETES 10/31/22 [History Last Taken 11/17/22 21:30] metoprolol succinate 50 mg tablet,extended release 24 hr 50 ea PO DAILY BLOOD PRESSURE 10/31/22 [History Last Taken 11/17/22 09:00] lisinopril 40 mg tablet 40 mg PO DAILY BLOOD PRESSURE 11/18/22 [History Last Taken 11/17/22 09:00] aspirin 81 mg chewable tablet 81 mg PO DAILY@0800 #30 tabs 11/19/22 [Rx Last Taken Unknown] bupropion HCl 150 mg 24 hr tablet, extended release 150 mg PO DAILY 01/21/23 [History Last Taken Unknown] empagliflozin 10 mg tablet (Jardiance) 10 mg PO DAILY 01/21/23 [History Last Taken Unknown] albuterol sulfate 90 mcg/actuation aerosol inhaler 2 puff inhalation Q6H PRN shortness of breath or wheezing #8.5 grams 02/12/23 [Rx Last Taken Unknown] citalopram 20 mg tablet 20 mg PO DAILY 03/22/23 [History Last Taken Unknown] budesonide-formoterol HFA 80 mcg-4.5 mcg/actuation aerosol inhaler (Symbicort) 1 puff inhalation BID 04/09/23 [History Last Taken Unknown] doxycycline monohydrate 100 mg capsule 100 mg PO BID 04/09/23 [History Last Taken Unknown] levocetirizine 5 mg tablet 5 mg PO DAILY 04/09/23 [History Last Taken Unknown] methylprednisolone 8 mg tablet (Medrol) 8 mg PO DAILY 04/09/23 [History Last Taken Unknown] montelukast 10 mg tablet (Singulair) 10 mg PO DAILY 04/09/23 [History Last Taken Unknown] Allergy/AdvReac Type Severity Reaction Status Date / Time No Known Allergies Allergy Verified 04/09/23 22:25 Family History Grandfather CVA (cerebral vascular accident) Diabetes Mother Cancer Father Hypertension Grandmother Hypertension Diabetes Surgical History H/O tooth extraction History of cholecystectomy plantar fasciitis release Social History household members: spouse Smoking Status: Current every day smoker tobacco type: cigarettes alcohol intake: current alcohol intake frequency: a few times a month Alcohol type: hard liquor substance use type: does not use ROS ROS ED Constitutional Constitutional ED: Denies chills or fever(s) Eyes Eyes: Denies blurry vision or change in vision ENT ENT ED: Reports sore throat; Denies rhinorrhea Cardiovascular Cardiovascular: Reports chest pain, palpitations and racing heartbeat Respiratory/Chest Respiratory/Chest: Reports cough and dyspnea Gastrointestinal Gastrointestinal: Reports nausea; Denies abdominal pain or vomiting Genitourinary Genitourinary ED: Denies dysuria or hematuria Musculoskeletal Musculoskeletal: Reports neck pain; Denies back pain Integumentary Reports rash; Denies abscess Neurologic Neurologic: Denies headache(s) or weakness Allergic/Immunologic Allergic/Immunologic ED: Denies mouth swelling or urticaria EXAM Physical Exam Const Vital Signs: 04/09/23 22:23 04/09/23 22:50 04/09/23 23:20 Temperature 97.3 F L Temperature Source Temporal Pulse Rate 98 88 92 Respiratory Rate 16 22 H 22 H Blood Pressure 94/57 L 90/54 L 86/46 L Blood Pressure Mean 69 66 59 Pulse Ox 97 95 95 Oxygen Delivery Method Room Air Room Air Room Air 04/10/23 00:21 04/10/23 00:37 04/10/23 01:09 Temperature 97.6 F L Temperature Source Oral Pulse Rate 92 88 89 Respiratory Rate 18 22 H 18 Blood Pressure 90/53 L 91/48 L 87/51 L Blood Pressure Mean 65 62 63 Pulse Ox 96 94 94 Oxygen Delivery Method Room Air Room Air Room Air 04/10/23 01:28 04/10/23 02:15 Temperature 98.0 F Temperature Source Temporal Pulse Rate 85 92 Respiratory Rate 17 20 H Blood Pressure 102/56 L 105/66 Blood Pressure Mean 71 79 Pulse Ox 93 93 Oxygen Delivery Method Room Air Room Air Positive well nourished and well developed General Appearance ED: well developed and NAD HEENT normocephalic and atraumatic Eyes PERRL and EOMs intact bilaterally Neck supple and no JVD Chest Wall palpation of chest normal Resp normal respiratory effort and clear to auscultation bilaterally Effort and Inspection: Negative for respiratory distress Cardio regular rate, regular rhythm and no murmurs GI normal to inspection, nondistended, normoactive bowel sounds, soft to palpation, non-tender and non-distended Extremity normal to inspection General Extremety ED: Negative for edema or tenderness General Extremity: Negative for edema Neuro oriented x3, CN's II-XII intact bilaterally and no sensory deficits noted Sensorium / Orientation: awake and alert Motor Exam: strength 5/5 throughout Psych mental status grossly normal Heart Score History: Slightly/Non-Suspicious ECG: Normal Age: >45 - <65 years Risk Factors: >/= 3 Risk Factors or History of CAD Troponin: </= Normal Limit Score: 3 MDM MDM MDM Narrative Medical decision making narrative: Differential diagnosis includes cardiac dysrhythmia, cardiac ischemia, pneumothorax, esophagitis, GERD, dysphagia, pulmonary embolism, pneumonia, anxiety, musculoskeletal etiology. EKG will be obtained to assess for cardiac dysrhythmia and cardiac ischemia. Chest x-ray will be obtained to assess for pneumonia and pneumothorax. CBC will be obtained to assess for leukocytosis and anemia. Basic metabolic profile will be obtained to assess for electrolyte abnormality and renal function. High-sensitivity troponin will be obtained to assess for cardiac ischemia. D-dimer will be obtained to assess for pulmonary embolism. History & Record Review Additional record(s) reviewed:: Prior inpatient record and Prior labs Lab Data Attestation: I reviewed the patient's lab results. Lab results narrative: Basic metabolic profile was reviewed. Creatinine was slightly elevated at 1.44. Anion gap was elevated at 17. Sodium was 134 and chloride was 97. CO2 was slightly low at 20. Glucose was elevated at 231. High-sensitivity troponin was reviewed and was normal at 3. D-dimer was normal at less than 0.27. 2-hour repeat high-sensitivity troponin was reviewed and was less than 3. Lactate was reviewed and was elevated at 6.3. Urinalysis was reviewed. There is no evidence of urinary tract infection or hematuria. Serum acetone was reviewed and was negative. Labs: Laboratory Results - last 24 hr 04/09/23 04/09/23 04/09/23 23:03 23:03 23:03 WBC 8.0 RBC 3.87 L Hgb 12.5 Hct 38.5 MCV 99.5 H MCH 32.3 H MCHC 32.5 RDW Std Deviation 47.4 H RDW Coeff of Braxton 13.0 Plt Count 298 MPV 10.0 Immature Gran % (Auto) 1.400 H Neut % (Auto) 85.1 H Lymph % (Auto) 11.3 L [place] % (Auto) 1.6 Eos % (Auto) 0.4 Baso % (Auto) 0.2 Absolute Neuts (auto) 6.8 Absolute Lymphs (auto) 0.91 Nucleated RBC % 0 D-Dimer Quant (PE/DVT) < 0.27 L Sodium 134 L Potassium 4.0 Chloride 97 L Carbon Dioxide 20.0 L Anion Gap 17 H BUN 18 Creatinine 1.44 H Estim Creat Clear Calc 42.15 Est GFR (MDRD) Af Amer 50 L Est GFR (MDRD) Non-Af 42 L BUN/Creatinine Ratio 12.5 Glucose 231 H Lactic Acid Calcium 8.9 Troponin I High Sens 3 Urine Color Urine Clarity Urine pH Ur Specific [place] Urine Protein Urine Glucose (UA) Urine Ketones Urine Occult Blood Urine Nitrite Urine Bilirubin Urine Urobilinogen Ur Leukocyte Esterase Urine RBC Urine WBC Ur Squamous Epith Cells Urine Bacteria Urine Mucus Acetone Level 04/10/23 04/10/23 04/10/23 00:05 00:05 01:25 WBC RBC Hgb Hct MCV MCH MCHC RDW Std Deviation RDW Coeff of Braxton Plt Count MPV Immature Gran % (Auto) Neut % (Auto) Lymph % (Auto) [place] % (Auto) Eos % (Auto) Baso % (Auto) Absolute Neuts (auto) Absolute Lymphs (auto) Nucleated RBC % D-Dimer Quant (PE/DVT) Sodium Potassium Chloride Carbon Dioxide Anion Gap BUN Creatinine Estim Creat Clear Calc Est GFR (MDRD) Af Amer Est GFR (MDRD) Non-Af BUN/Creatinine Ratio Glucose Lactic Acid 6.3 H* Calcium Troponin I High Sens Urine Color Yellow Urine Clarity Clear Urine pH 6.5 Ur Specific [place] 1.010 Urine Protein Negative Urine Glucose (UA) 1000 H Urine Ketones Negative Urine Occult Blood Negative Urine Nitrite Negative Urine Bilirubin Negative Urine Urobilinogen Normal Ur Leukocyte Esterase Negative Urine RBC 0 SEEN Urine WBC 0 SEEN Ur Squamous Epith Cells 0 SEEN Urine Bacteria 0 SEEN Urine Mucus 0 SEEN Acetone Level NEGATIVE 04/10/23 04/10/23 04/10/23 01:25 02:00 02:00 WBC RBC Hgb Hct MCV MCH MCHC RDW Std Deviation RDW Coeff of Braxton Plt Count MPV Immature Gran % (Auto) Neut % (Auto) Lymph % (Auto) [place] % (Auto) Eos % (Auto) Baso % (Auto) Absolute Neuts (auto) Absolute Lymphs (auto) Nucleated RBC % D-Dimer Quant (PE/DVT) Sodium 140 Potassium 4.8 Chloride 110 H Carbon Dioxide 19.0 L Anion Gap 11 BUN 16 Creatinine 1.01 Estim Creat Clear Calc 60.10 Est GFR (MDRD) Af Amer 76 Est GFR (MDRD) Non-Af 63 BUN/Creatinine Ratio 15.8 Glucose 160 H Lactic Acid 4.2 H* Calcium 7.3 L Troponin I High Sens < 3 L Urine Color Urine Clarity Urine pH Ur Specific [place] Urine Protein Urine Glucose (UA) Urine Ketones Urine Occult Blood Urine Nitrite Urine Bilirubin Urine Urobilinogen Ur Leukocyte Esterase Urine RBC Urine WBC Ur Squamous Epith Cells Urine Bacteria Urine Mucus Acetone Level ABG Data ABG results: ABG 04/10/23 00:13 Specimen Type GELACIO VBG pH 7.29 L VBG pO2 54 H VBG HCO3 20 L VBG Total CO2 21 L VBG O2 Sat (Calc) 84 H VBG Base Excess -7 L POC Mix VBG pCO2 Pt Tmp 40.5 L O2 Delivery Device Room Air Radiography Chest X-Ray - ED: 1 View, Read by ED Physician, Read by Radiologist and No Acute Disease Diagnostic Testing: Clinical Impression(s) from Imaging Studies Chest X-Ray 04/09/23 23:22 IMPRESSION: No radiographic evidence of acute cardiopulmonary disease. Electronically Signed: Alcon Sebastian MD at 0:00 EDT , Portable 1 view chest x-ray was obtained. On my independent interpretation, lung benton are clear. There is normal cardiac silhouette. Bony thorax is normal. There is no acute process noted. Radiologist also interpreted the x-ray and agrees. EKG Initial EKG: Attestation: I personally reviewed and interpreted this EKG as follows: Interpretation: Sinus Rhythm (86) and No Acute Injury Pattern Comments: EKG was obtained. On my independent interpretation, it showed a normal sinus rhythm with a rate of 86. PA interval, QRS interval, and QTc intervals were all normal. [place] was normal. There are no acute ST or T wave changes. Prior EKG tracings: available for review Prior: Unchanged (03/22/2023) Management Discussion w/another healthcare provider: Hospitalist Treatment and Re-Evaluation :: Patient was given IV fluids. Patient's blood pressure remains somewhat low. Patient was given repeat bolus of normal saline. Because of the elevated anion gap, serum acetone and lactic acid was obtained. At this point, I do not have a source of any infection that would be causing the elevated lactic acidosis. Since her serum acetone was negative, I do not feel she is in DKA. Case was discussed with the hospitalist. He will admit the patient to the hospital. Patient understood and was agreeable with the plan. All questions were answered. 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 Discharge Date/Time: 04/10/23 03:28
[2023-04-09] MEDS: Aspirin 81 MG TAB.CHEW 324 MG PO (23:15)
[2023-04-09] MEDS: Ondansetron 4 MG/2 ML Vial IV (23:15)
[2023-04-09] MEDS: 0.9% Normal Saline 1,000 ML 1000 ML IV (23:15)
[2023-04-09 23:20] VITALS: BP 86/46; PULSE 92; RESP 22; O2SAT 95
--- NOTE | 2023-04-09 23:22 | RAD_ITS ---
EXAM: XR CHEST, 1 VIEW CLINICAL INDICATION: chest pain TECHNIQUE: Frontal view of the chest. COMPARISON: PA lateral chest from same date. FINDINGS: LUNGS AND PLEURAL SPACES: Unremarkable. No consolidation or edema. No pneumothorax. No effusion. HEART: Unremarkable. Cardiac silhouette not enlarged. MEDIASTINUM: Central airways and mediastinal contour are unremarkable. BONES/JOINTS: Unremarkable. SOFT TISSUES: Unremarkable. RAD/Chest 1 View (Portable) IMPRESSION: No radiographic evidence of acute cardiopulmonary disease. Electronically Signed: Alcon Sebastian MD at 0:00 EDT ,
[2023-04-09 23:26] LABS: Anion Gap 17 (5-15); BUN 18 mg/dL (7-18); BUN/Creat Ratio 12.5 RATIO (10-20); Calcium,Total 8.9 mg/dL (8.5-10.1); Chloride 97 mmol/L (98-107); Creatinine, Serum 1.44 mg/dL (0.55-1.02); EST Glomerular Filtration Rate 42 mL/min (>60); Est Glom Filt Rate - Afr Amer 50 mL/min (>60); Estimated Creatinine Clearance 42.15 ml/min; Glucose 231 mg/dL (74-106); Sodium Level 134 mmol/L (136-145); Troponin-I HS (w/2H Reflex) 3 pg/mL (3.0-54.0)
[2023-04-09 23:40] LABS: D-Dimer Quantitative (DVT/PE) < 0.27 FEU/ug/m (0.27-0.49)
[2023-04-09 23:43] LABS: Absolute Lymphocyte Count 0.91 X10^3/uL (0.83-4.51); Absolute Neutrophil Count 6.8 X10^3/uL (2.0-7.7); Basophil# 0.02 X10^3/uL; Basophil% 0.2 % (0-1); Eosinophil# 0.03 X10^3/uL; Eosinophils% 0.4 % (0-5); Hematocrit 38.5 % (37-47); Hemoglobin 12.5 g/dL (12.0-15.0); Lymphocyte # 0.91 X10^3/ul (0.83-4.51); Lymphocyte % 11.3 % (19-41); Mean Corp Hgb Conc 32.5 g/dL (32-36); Mean Corpuscular Hgb 32.3 pg (27.0-32.0); Mean Corpuscular Volume 99.5 fL (81-99); Monocyte# 0.13 X10^3/uL; Monocyte% 1.6 % (0-10); NRBC Flagged by Analyzer 0 % (0-5); Neutrophil # 6.82 X10^3/uL (2.7-7.7); Neutrophil % 85.1 % (47-70); Platelet Count 298 K/mm3 (150-450); RBC Distribution Width SD 47.4 fl (35.1-43.9); Red Blood Count 3.87 M/mm3 (4.2-5.4)
[2023-04-10] VITALS (14 sets, daily range): BP systolic 87–132; BP diastolic 48–66; PULSE 80–95; RESP 12–22; TEMP 36.4–36.8; O2SAT 93–97; BMI 27.4
[2023-04-10] MEDS: 0.9% Normal Saline 1,000 ML 1000 ML IV ×2 (00:20→01:08)
[2023-04-10 00:21] LABS: Blood Gas Specimen Type VEN; O2 Delivery Device Room Air; VBG BASE EXCESS -7 mmol/L (-1.0-3.5); VBG Bicarbonate 20 mmol/L (22-26); VBG PO2 54 mmHg (25-40); VBG SO2 84 % (50-70); VBG TCO2 21 mmol/L (23-33); VBG pCO2 40.5 mmHg (41-51); VBG pH 7.29 (7.32-7.42)
[2023-04-10 00:45] LABS: Lactic Acid 6.3 mmol/L (0.4-1.9)
[2023-04-10 01:06] LABS: Reflex Troponin-HS? (from REC) Y
--- NOTE | 2023-04-10 01:28 | PCM.HP.STD ---
HPI - General General Date of Admission: 04/10/23 Date of Service: 04/10/23 Chief Complaint: chest pain HPI Narrative JOSEPH RINCON, is a 48 F with a significant history diabetes mellitus who presents to the emergency department with chest pain that started few hours before presentation. She described the chest pain as pressure and aching. This chest pain has been intermittent and ongoing for the past 2 to 3 days. Mild exertion bring the chest pain on. Pepto-Bismol and inder appears to help with the chest pain. Also about 3 and half hours before presentation patient choked on food. Further she reports dizziness. Initially her dizziness was lightheadedness but later on she had Vertigo. Her Vertigo comes on with ambulation. Also patient complains of right jaw pain. At home her blood pressure was low. Her systolic blood pressure was 70s to 80s and and her diastolic blood pressure was 40s. At the time of low blood pressure her pulse was 102. Further she reports nausea. She vomited with the choking episode. However a few days past patient also vomited. A day before presentation patient had multiple loose stools. [facility] Medical History Acute lumbar myofascial strain Anxiety Depression Diabetes History of left heart catheterization (LHC) (~11/19/22) HTN (hypertension) Pancreatitis Sleep apnea Strain of left hip Home Medications metformin 500 mg tablet 500 ea PO BID DIABETES 10/31/22 [History Last Taken 11/17/22 21:30] metoprolol succinate 50 mg tablet,extended release 24 hr 50 ea PO DAILY BLOOD PRESSURE 10/31/22 [History Last Taken 11/17/22 09:00] lisinopril 40 mg tablet 40 mg PO DAILY BLOOD PRESSURE 11/18/22 [History Last Taken 11/17/22 09:00] aspirin 81 mg chewable tablet 81 mg PO DAILY@0800 #30 tabs 11/19/22 [Rx Last Taken Unknown] bupropion HCl 150 mg 24 hr tablet, extended release 150 mg PO DAILY 01/21/23 [History Last Taken Unknown] empagliflozin 10 mg tablet (Jardiance) 10 mg PO DAILY 01/21/23 [History Last Taken Unknown] albuterol sulfate 90 mcg/actuation aerosol inhaler 2 puff inhalation Q6H PRN shortness of breath or wheezing #8.5 grams 02/12/23 [Rx Last Taken Unknown] citalopram 20 mg tablet 20 mg PO DAILY 03/22/23 [History Last Taken Unknown] budesonide-formoterol HFA 80 mcg-4.5 mcg/actuation aerosol inhaler (Symbicort) 1 puff inhalation BID 04/09/23 [History Last Taken Unknown] doxycycline monohydrate 100 mg capsule 100 mg PO BID 04/09/23 [History Last Taken Unknown] levocetirizine 5 mg tablet 5 mg PO DAILY 04/09/23 [History Last Taken Unknown] methylprednisolone 8 mg tablet (Medrol) 8 mg PO DAILY 04/09/23 [History Last Taken Unknown] montelukast 10 mg tablet (Singulair) 10 mg PO DAILY 04/09/23 [History Last Taken Unknown] Allergy/AdvReac Type Severity Reaction Status Date / Time No Known Allergies Allergy Verified 04/09/23 22:25 Family History Grandfather CVA (cerebral vascular accident) Diabetes Mother Cancer Father Hypertension Grandmother Hypertension Diabetes Surgical History H/O tooth extraction History of cholecystectomy plantar fasciitis release Social History household members: spouse Smoking Status: Current every day smoker tobacco type: cigarettes alcohol intake: current alcohol intake frequency: a few times a month Alcohol type: hard liquor substance use type: does not use ROS ROS Narrative Pertinent positives and pertinent negatives as noted in HPI. All other systems were reviewed and are negative Vital Signs Vital Signs Vital Signs: 04/09/23 22:23 04/09/23 22:50 04/09/23 23:20 Temperature 97.3 F L Temperature Source Temporal Pulse Rate 98 88 92 Respiratory Rate 16 22 H 22 H Blood Pressure 94/57 L 90/54 L 86/46 L Blood Pressure Mean 69 66 59 Pulse Ox 97 95 95 Oxygen Delivery Method Room Air Room Air Room Air 04/10/23 00:21 04/10/23 00:37 04/10/23 01:09 Temperature 97.6 F L Temperature Source Oral Pulse Rate 92 88 89 Respiratory Rate 18 22 H 18 Blood Pressure 90/53 L 91/48 L 87/51 L Blood Pressure Mean 65 62 63 Pulse Ox 96 94 94 Oxygen Delivery Method Room Air Room Air Room Air Weight Weight: 70.8 kg Body Mass Index (BMI) 26.8 Physical Exam Narrative Physical exam: General: Well-nourished, well-developed. Head: Normocephalic, atraumatic, no tenderness Eyes: Vision is grossly intact. EOMI ENT: Right TM with apparent tympanic membrane. Unable to visualize left tympanic membranes clearly. No trauma, dry mucous membranes, no rhinorrhea Neck: Nontender, No thyromegaly. CVS: Regular rate and rhythm. S1-S2 present. No murmur, gallop or rub. Respiratory : clear to auscultation bilaterally, chest wall nontender Abdomen: Soft, nontender, nondistended, normal bowel sounds, no masses : Deferred Back: Nontender, no CVA tenderness, no midline spinal tenderness, deformities, step-offs Extremities: Nontender full range of motion, no trauma Skin: Petechiae rash on left neck and on bilateral upper extremities. Neuro: Alert, oriented, cranial nerves II through XII grossly intact. Cristin-Hallpike maneuver to the right was positive for Vertigo; but the right was not positive for Vertigo. Psychiatry: Normal mood. Normal affect. Not depressed. Not anxious. Results Lab / Micro Data Result Diagrams: 04/09/23 23:03 04/10/23 02:00 Labs: Laboratory Results - last 24 hr 04/09/23 23:03: WBC 8.0, RBC 3.87 L, Hgb 12.5, Hct 38.5, MCV 99.5 H, MCH 32.3 H, MCHC 32.5, RDW Std Deviation 47.4 H, RDW Coeff of Braxton 13.0, Plt Count 298, MPV 10.0, Immature Gran % (Auto) 1.400 H, Neut % (Auto) 85.1 H, Lymph % (Auto) 11.3 L, Angelina % (Auto) 1.6, Eos % (Auto) 0.4, Baso % (Auto) 0.2, Absolute Neuts (auto) 6.8, Absolute Lymphs (auto) 0.91, Nucleated RBC % 0 04/09/23 23:03: D-Dimer Quant (PE/DVT) < 0.27 L 04/09/23 23:03: Sodium 134 L, Potassium 4.0, Chloride 97 L, Carbon Dioxide 20.0 L, Anion Gap 17 H, BUN 18, Creatinine 1.44 H, Estim Creat Clear Calc 42.15, Est GFR (MDRD) Af Amer 50 L, Est GFR (MDRD) Non-Af 42 L, BUN/Creatinine Ratio 12.5, Glucose 231 H, Calcium 8.9, Troponin I High Sens 3 04/10/23 00:05: Acetone Level NEGATIVE 04/10/23 00:05: Lactic Acid 6.3 H* ABG Data ABG results: ABG 04/10/23 00:13 Specimen Type GELACIO VBG pH 7.29 L VBG pO2 54 H VBG HCO3 20 L VBG Total CO2 21 L VBG O2 Sat (Calc) 84 H VBG Base Excess -7 L POC Mix VBG pCO2 Pt Tmp 40.5 L O2 Delivery Device Room Air Radiology Impression Chest X-Ray 04/09/23 23:22 IMPRESSION: No radiographic evidence of acute cardiopulmonary disease. Electronically Signed: Alcon Sebastian MD at 0:00 EDT , Assessment & Plan Assessment/Plan (1) Hypotension: (2) Vertigo: (3) Type 2 diabetes mellitus: QUALIFIERS: Diabetes mellitus complication detail: with peripheral angiopathy without gangrene Diabetes mellitus complication status: with circulatory complication (4) Chest pain: (5) Lactic acidosis: (6) High anion gap metabolic acidosis: PLAN: Plan Acute hypotension Likely due to hypovolemia and drug effects. Received normal saline bolus at the emergency department. Gentle IV hydration continued. Hold home blood pressure medications. Trend blood pressures. Observe at progressive care units. Vertigo Order MRI to rule out central cause. Meclizine prn Valium5 mg PO Q8H PRN Lactic acidosis/high anion gap metabolic acidosis Lactic acid of 6.3. Repeat of 4.2 after fluid resuscitation. Anion gap of 17. CO2 of 20. No evidence of infection as review of urinalysis did not show infection. Impression of chest x-ray by radiology: No radiographic evidence of acute cardiopulmonary disease. Chest x-ray image was independently interpreted and I agree with radiology interpretation. The metformin could be contributing. Trend. Chest pain Cardiac cath in October 2022 was negative. Troponin was elevated at that time. Troponin on presentation normal. Trend. Trial of Protonix ordered. Observe on telemetry at progressive care unit. Diabetes mellitus Patient with hyperglycemia on presentation Jardiance continued continued. Metformin held Monitor Accu-Cheks Correction scale insulin ordered. Rash Present on presentation. Home doxycycline and methylprednisone continued. Monitor. DVT prophylaxis Subcutaneous Lovenox ordered. Charges/Coding Visit Charges Inpatient E&M: 60614 Init Hosp L3
[2023-04-10 01:29] LABS: Bacteria 0 SEEN /hpf (None Seen); Mucous, Urine 0 SEEN /hpf (<or=2+); Red Blood Cells-Urine 0 SEEN /hpf (0-5); Squamous Epithelial Cells - UA 0 SEEN /hpf (5-10); White Blood Cells 0 SEEN /hpf (0-5)
[2023-04-10 01:32] LABS: Color, Urine Yellow (Yellow); Glucose, Dipstick 1000 mg/dl (Normal); Ketone-Dipstick Negative (Negative); Leukocyte Esterase-Dipstick Negative /ul (Negative); Nitrite-Dipstick Negative (Negative); Occult Blood-Urine Negative /ul (Negative); Protein-Dipstick Negative (Negative); Urine Bilirubin Dipstick Negative (Negative); Urine Clarity Clear (Clear); Urine Urobilinogen Normal (Normal); Urine pH 6.5 (5.0 - 8.0)
[2023-04-10 01:46] LABS: Troponin-I HS < 3 pg/mL (3.0-54.0)
[2023-04-10 02:32] LABS: Anion Gap 11 (5-15); BUN 16 mg/dL (7-18); BUN/Creat Ratio 15.8 RATIO (10-20); Calcium,Total 7.3 mg/dL (8.5-10.1); Chloride 110 mmol/L (98-107); Creatinine, Serum 1.01 mg/dL (0.55-1.02); EST Glomerular Filtration Rate 63 mL/min (>60); Est Glom Filt Rate - Afr Amer 76 mL/min (>60); Glucose 160 mg/dL (74-106); Potassium 4.8 mmol/L (3.5-5.1); Sodium Level 140 mmol/L (136-145)
[2023-04-10 02:34] LABS: Lactic Acid 4.2 mmol/L (0.4-1.9)
--- NOTE | 2023-04-10 02:58 | EKG12_ITS ---
Test Reason : CP ADMIT Blood Pressure : / mmHG Vent. Rate : 084 BPM Atrial Rate : 084 BPM P-R Int : 144 ms QRS Dur : 076 ms QT Int : 384 ms P-R-T Axes : 064 050 048 degrees QTc Int : 453 ms Normal sinus rhythm Normal ECG When compared with ECG of 22-MAR-2023 18:18, No significant change was found Confirmed by STEFFANY LEBLANC, IFRAH ([id number]), society editor JAVID JAMES ([id number]) on 04/13/2023 10:01:31 AM Referred By: FLORENTIN Confirmed By:IFRAH JETER MD
--- NOTE | 2023-04-10 03:41 | MRI_ITS ---
HISTORY: vertigo. TECHNIQUE: Multiplanar and multisequence MR images of the brain were obtained without contrast. 304 images. COMPARISON: CT 09/05/2022. FINDINGS: BRAIN PARENCHYMA: Motion artifact on the T2-weighted FLAIR images without significant signal abnormality in the brain parenchyma. No abnormal focus of restricted diffusion. No acute intracranial hemorrhage identified. CSF SPACES: Cerebral ventricles, cortical sulci, and other extra-axial CSF spaces within normal limits in size. No significant midline shift or other mass effect.No extra-axial fluid collection. VASCULAR SYSTEM: Major intracranial flow voids are maintained. PARANASAL SINUSES AND MASTOID AIR CELLS: No significant air fluid levels. ORBITS: Symmetric contents. MRI/Brain without Contrast IMPRESSION: Motion artifact. Unremarkable examination without evidence for significant signal abnormality in the brain or acute infarct. Electronically Signed: Diana Floyd MD at 11:21 EDT ,
[2023-04-10 04:07] LABS: Reflex Lactate? Y
[2023-04-10] MEDS: 0.9% Normal Saline 1,000 ML 100 ML IV (04:36)
[2023-04-10 06:01] LABS: Troponin-I HS < 3 pg/mL (3.0-54.0)
[2023-04-10 06:02] LABS: Reflex Lactate? Y
[2023-04-10 07:00] LABS: Bedside Glucose 122 mg/dL (74-106)
[2023-04-10] MEDS: Budesonide Respules 0.5 MG/2 ML AMPUL.NEB. INHALATION ×2 (07:37→20:05)
[2023-04-10] MEDS: Albuterol 2.5 MG/3 ML VIAL.NEB. INHALATION ×3 (07:37→20:05)
[2023-04-10] MEDS: Citalopram 20 MG Tablet PO (08:41)
[2023-04-10] MEDS: Montelukast 10 MG Tablet PO (08:41)
[2023-04-10] MEDS: Aspirin 81 MG TAB.CHEW PO (08:41)
[2023-04-10] MEDS: Doxycycline 100 MG CAPSULE PO ×2 (08:41→22:31)
[2023-04-10] MEDS: Loratadine 10 MG Tablet PO (08:41)
[2023-04-10] MEDS: Empagliflozin 10 MG Tablet PO (08:42)
[2023-04-10] MEDS: MethylPREDNISolone 4 MG Tablet 8 MG PO (08:42)
[2023-04-10] MEDS: buPROPion (XL) 150 MG TABLET.XL PO (08:42)
[2023-04-10] MEDS: Enoxaparin 40 MG/0.4 ML Syringe SC (08:42)
[2023-04-10] MEDS: LORazepam 1 MG Tablet PO (08:59)
[2023-04-10] MEDS: 0.9% Saline Lock 10 ML Syringe IV ×2 (10:38→22:31)
[2023-04-10] MEDS: Insulin Lispro 100 UNIT/ML INSULN.PEN SC ×3 (11:33→22:31)
[2023-04-10 12:00] LABS: Bedside Glucose 205 mg/dL (74-106)
--- NOTE | 2023-04-10 12:35 | CASEMGMT ---
RN CM Face to Face with patient for initial transition planning/care coordination assessment. RN CM introduced self and role at [facility]. Patient lying in bed, alert and oriented, at bedside. Patient willing to participate in assessment and is able to answer all questions appropriately. Care providers, pharmacy, and demographics verified. Patient wishes to discharge home, denies need for home health at this time. Patient states she has no further needs or concerns at this time. CM to follow for discharge planning needs that may arise. PCP: Jose Specialists: Winnie reporting analyst Preferred Pharmacy: [facility] Insurance: [place] Prescription Benefit: yes Living Will/HPOA: none LNOK: Living Arrangements: Patient lives with in a 2 story home. Patient is independent and able to ambulate stairs. Transportation: self, DME/HHC: Patient has crutches, cpap, and pulse ox. Patient encouraged to wear cpap at home. No previous HHC or SNF. Disposition Plan: Patient to discharge home with family support and follow-up plans in place. Ariadna LAU, RN, CM
--- NOTE | 2023-04-10 15:11 | PN.HOSP_ITS ---
Hospitalist Note Is a 48-year-old white female with a past medical history of diabetes who presented to the emergency department early this morning complaining of chest pain that started a few hours prior to presentation. She stated it was aching and had been intermittent for the last 2 to 3 days. She reported that Pepto- Bismol and Tums appeared to help her with her symptoms. She also complained of some lightheadedness and then later completed of vertigo. She checked her blood pressure at home and was found to be low with systolics in the 70s to 80s and diastolics in the 40s and heart rate was in the 100s. She had some nausea and vomiting and multiple loose stools the day prior to presentation. She is on vent and Jardiance for her diabetes at home. On presentation she had a significant lactic acidosis with a lactic acid level of 6.3. With fluids resuscitation it is improved. She also was found to have an LUI with a serum creatinine of 1.44. I suspect she was dehydrated with regards to her nausea vomiting and diarrhea 2 days prior. An MRI was performed with her vertigo and was negative for any acute findings. Clinically she is feeling much better. She had a heart catheterization on 11/19/2022 which was completely normal and showed no signs of any obstruction or coronary artery disease. This was done for elevated troponin which was attributed to her marked hypertension at that time. Clinically she is much better today. She is taking in p.o. without any difficulty. I have stopped her IV fluids and as long as she continues to eat and drink well I think we can work on discharging her tomorrow. I suspect her lactic acid is related to her dehydration and metformin use. Protonix will be initiated as it sounds like she has some GERD type symptoms that are causing some issues for her at baseline.
[2023-04-10 16:51] LABS: Bedside Glucose 234 mg/dL (74-106)
[2023-04-10 23:56] LABS: Bedside Glucose 174 mg/dL (74-106)
[2023-04-11 03:32] VITALS: BP 146/79; PULSE 74; RESP 16; TEMP 36.4; O2SAT 95
[2023-04-11] MEDS: 0.9% Saline Lock 10 ML Syringe IV (03:39)
[2023-04-11] MEDS: Ondansetron 4 MG/2 ML Vial IV (03:39)
[2023-04-11 06:28] LABS: Absolute Lymphocyte Count 2.75 X10^3/uL (0.83-4.51); Absolute Neutrophil Count 7.8 X10^3/uL (2.0-7.7); Basophil# 0.03 X10^3/uL; Basophil% 0.3 % (0-1); Eosinophil# 0.08 X10^3/uL; Eosinophils% 0.7 % (0-5); Hematocrit 38.9 % (37-47); Hemoglobin 12.6 g/dL (12.0-15.0); Lymphocyte # 2.75 X10^3/ul (0.83-4.51); Lymphocyte % 23.8 % (19-41); Mean Corp Hgb Conc 32.4 g/dL (32-36); Mean Corpuscular Hgb 32.6 pg (27.0-32.0); Mean Corpuscular Volume 100.5 fL (81-99); Mean Platelet Vol. 9.7 fl (6.2-12.0); Monocyte% 7.8 % (0-10); NRBC Flagged by Analyzer 0 % (0-5); Neutrophil # 7.76 X10^3/uL (2.7-7.7); Neutrophil % 67.1 % (47-70); Platelet Count 246 K/mm3 (150-450); RBC Distribution Width CV 13.1 % (11.6-14.6); RBC Distribution Width SD 47.8 fl (35.1-43.9); Red Blood Count 3.87 M/mm3 (4.2-5.4); White Blood Count 11.6 K/mm3 (4.4-11.0)
[2023-04-11 06:55] LABS: Bedside Glucose 95 mg/dL (74-106)
[2023-04-11 07:04] VITALS: PULSE 75; RESP 18; O2SAT 95
[2023-04-11] MEDS: Albuterol 2.5 MG/3 ML VIAL.NEB. INHALATION (07:04)
[2023-04-11] MEDS: Budesonide Respules 0.5 MG/2 ML AMPUL.NEB. INHALATION (07:04)
[2023-04-11 07:10] LABS: Lactic Acid 0.6 mmol/L (0.4-1.9)
[2023-04-11 07:14] LABS: Anion Gap 8 (5-15); BUN 19 mg/dL (7-18); BUN/Creat Ratio 23.2 RATIO (10-20); Calcium,Total 8.8 mg/dL (8.5-10.1); Chloride 105 mmol/L (98-107); Creatinine, Serum 0.82 mg/dL (0.55-1.02); EST Glomerular Filtration Rate 80 mL/min (>60); Est Glom Filt Rate - Afr Amer 97 mL/min (>60); Estimated Creatinine Clearance 74.03 ml/min; Glucose 143 mg/dL (74-106); Potassium 4.1 mmol/L (3.5-5.1); Sodium Level 137 mmol/L (136-145)
[2023-04-11] MEDS: Empagliflozin 10 MG Tablet PO (09:34)
[2023-04-11] MEDS: Citalopram 20 MG Tablet PO (09:34)
[2023-04-11] MEDS: Aspirin 81 MG TAB.CHEW PO (09:34)
[2023-04-11] MEDS: Doxycycline 100 MG CAPSULE PO (09:34)
[2023-04-11] MEDS: Loratadine 10 MG Tablet PO (09:34)
[2023-04-11] MEDS: buPROPion (XL) 150 MG TABLET.XL PO (09:35)
[2023-04-11] MEDS: MethylPREDNISolone 4 MG Tablet 8 MG PO (09:35)
[2023-04-11] MEDS: Montelukast 10 MG Tablet PO (09:35)
--- NOTE | 2023-04-11 09:36 | PCM.DC.SUM ---
Providers Date of Admission: 04/10/23 Date of Discharge: 04/11/23 Primary Care Physician: Milana Garcia DO Reason For Visit: ACUTE HYPOTENSION, VERTIGO, LACTIC ACIDOSIS Diagnosis Discharge Diagnosis (1) Hypotension: Status: Acute Code(s): I95.9 - Hypotension, unspecified (2) Vertigo: Status: Acute Code(s): R42 - Dizziness and giddiness (3) Type 2 diabetes mellitus: Status: Chronic Code(s): E11.9 - Type 2 diabetes mellitus without complications Qualifiers: Diabetes mellitus complication status: with circulatory complication Diabetes mellitus complication detail: with peripheral angiopathy without gangrene (4) Chest pain: Status: Inactive (5) Lactic acidosis: Status: Acute Code(s): E87.20 - Acidosis, unspecified (6) High anion gap metabolic acidosis: Status: Acute Code(s): E87.29 - Other acidosis Medications at Discharge Home Medications metformin 500 mg tablet 500 ea PO BID DIABETES 10/31/22 metoprolol succinate 50 mg tablet,extended release 24 hr 50 ea PO DAILY BLOOD PRESSURE 10/31/22 lisinopril 40 mg tablet 40 mg PO DAILY BLOOD PRESSURE 11/18/22 aspirin 81 mg chewable tablet 81 mg PO DAILY@0800 #30 tabs 11/19/22 bupropion HCl 150 mg 24 hr tablet, extended release 150 mg PO DAILY 01/21/23 empagliflozin 10 mg tablet (Jardiance) 10 mg PO DAILY 01/21/23 albuterol sulfate 90 mcg/actuation aerosol inhaler 2 puff inhalation Q6H PRN shortness of breath or wheezing #8.5 grams 02/12/23 citalopram 20 mg tablet 20 mg PO DAILY 03/22/23 budesonide-formoterol HFA 80 mcg-4.5 mcg/actuation aerosol inhaler (Symbicort) 1 puff inhalation BID 04/09/23 doxycycline monohydrate 100 mg capsule 100 mg PO BID 04/09/23 levocetirizine 5 mg tablet 5 mg PO DAILY 04/09/23 methylprednisolone 8 mg tablet (Medrol) 8 mg PO DAILY 04/09/23 montelukast 10 mg tablet (Singulair) 10 mg PO DAILY 04/09/23 pantoprazole 40 mg tablet,delayed release 40 mg PO DAILY #30 tabs 04/11/23 Hospital Course Operations None Procedures EKG and - (MRI brain/chest x-ray) Summary of Care Provided Minutes Spent on Discharge: 37 Hospital Course: Ms Leary a 48-year-old white female with a past medical history of diabetes who presented to the emergency department early on the morning of 04/10/2023 complaining of chest pain that started a few hours prior to presentation.? She stated it was aching and had been intermittent for the last 2 to 3 days.? She reported that Pepto-Bismol and Tums appeared to help her with her symptoms.? She also complained of some lightheadedness and then later complained of vertigo.? She checked her blood pressure at home and was found to be low with systolics in the 70s to 80s and diastolics in the 40s and heart rate was in the 100s.? She had some nausea and vomiting and multiple loose stools the day prior to presentation.? She is on metformin and Jardiance for her diabetes at home.? On presentation she had a significant lactic acidosis with a lactic acid level of 6.3.? With fluids resuscitation and discontinuation of her metformin, it is improved.? She also was found to have an LUI with a serum creatinine of 1.44.? I suspect she was dehydrated due to her nausea, vomiting, and diarrhea 2 days prior.? An MRI was performed with her vertigo and was negative for any acute findings.? She had a heart catheterization on 11/19/2022 which was completely normal and showed no signs of any obstruction or coronary artery disease. Her EKG was unremarkable and cardiac enzymes were cycled this hospitalization.? I suspect her lactic acid is related to her dehydration and metformin use.? I have instructed her to hold her metformin if she has nausea vomiting and diarrhea with decreased oral intake and to check her blood pressures if she becomes ill and hold her antihypertensives if her blood pressure drops below 130/80 consistently and not to restart them until she is above 130/80 consistently. Protonix will be initiated as it sounds like she has some GERD type symptoms that are causing some issues for her at baseline. She is also on doxycycline which may be contributing to her gastrointestinal discomfort. I have asked her to take her doxycycline with a full glass of water and sit upright for at least 30 minutes following to avoid any further issues the doxycycline may be causing. She is to follow-up with her primary care physician within the next 2 weeks. I did ask her to let them know if her GI complaints did not resolve with the Protonix and the instructions for the doxycycline as further work-up may be needed. Prescription for Protonix was sent to her local pharmacy. Discharge diagnoses: Chest pain-resolved Lactic acidosis-resolved LUI-resolved Nausea, vomiting, diarrhea-resolved Hypotension-resolved Dehydration-resolved Hypertension DM-2 Seasonal allergies Reflux Depression Physical Exam Const alert, oriented x3, no apparent distress, average body habitus, healthy appearing and well nourished Constitutional Narrative: Middle-aged, white female, lying in bed sleeping but awakens easily at the time of my evaluation, appears comfortable nontoxic indicates she is feeling much better oral intake has been good General Appearance: cooperative, comfortable, well kempt and well developed Orientation / Consciousness: awake, oriented to person, oriented to place and oriented to time Exam Limitations: no limitations Nutritional Appearance: overweight HEENT normocephalic, head/scalp atraumatic, hearing grossly normal bilaterally and moist oral mucous membranes HEENT Narrative: Mallampati 2-3, no thrush Eyes PERRL, EOMs intact bilaterally and conjunctivae normal Eyes Narrative: No scleral icterus Neck no lymphadenopathy and supple Neck Narrative: Trachea midline, no thyroid enlargement Resp normal respiratory effort, no retractions, no use of accessory muscles and clear to auscultation bilaterally Auscultation: Negative for rales, rhonchi or wheezes Cardio regular rate, regular rhythm, S1 normal heart sound, S2 normal heart sound, no murmurs, no rub, no gallops and no clicks GI normal to inspection, nondistended, normoactive bowel sounds and soft to palpation Extremity no clubbing, cyanosis or edema Extremity Narrative: 2+ pedal pulses Skin no rashes or lesions noted, no wounds, skin turgor normal and no jaundice Neuro oriented x3, CN's II-XII intact bilaterally, moves all extremities, no focal motor deficits and no sensory deficits noted Speech: speech normal Psych Psych Narrative: Affect is somewhat flat but mood seems to be normal with good eye contact Weight / BMI Weight Weight: 72.5 kg Body Mass Index (BMI) 27.4 ABG / Lab / Microbiology Data Result Diagrams: 04/11/23 06:10 04/11/23 06:10 Laboratory: Laboratory Results - last 24 hr 04/10/23 11:29: POC Glucose 205 H 04/10/23 16:30: POC Glucose 234 H 04/10/23 22:30: POC Glucose 174 H 04/11/23 06:10: WBC 11.6 H, RBC 3.87 L, Hgb 12.6, Hct 38.9, MCV 100.5 H, MCH 32.6 H, MCHC 32.4, RDW Std Deviation 47.8 H, RDW Coeff of Braxton 13.1, Plt Count 246, MPV 9.7, Immature Gran % (Auto) 0.300, Neut % (Auto) 67.1, Lymph % (Auto) 23.8, Branch % (Auto) 7.8, Eos % (Auto) 0.7, Baso % (Auto) 0.3, Absolute Neuts (auto) 7.8 H, Absolute Lymphs (auto) 2.75, Nucleated RBC % 0 04/11/23 06:10: Sodium 137, Potassium 4.1, Chloride 105, Carbon Dioxide 24.0, Anion Gap 8, BUN 19 H, Creatinine 0.82, Estim Creat Clear Calc 74.03, Est GFR (MDRD) Af Amer 97, Est GFR (MDRD) Non-Af 80, BUN/Creatinine Ratio 23.2 H, Glucose 143 H, Calcium 8.8 04/11/23 06:10: Lactic Acid 0.6 04/11/23 06:24: POC Glucose 95 Radiography Diagnostic Testing: Radiology Impression Brain MRI 04/10/23 03:41 IMPRESSION: Motion artifact. Unremarkable examination without evidence for significant signal abnormality in the brain or acute infarct. Electronically Signed: Diana Floyd MD at 11:21 EDT , D/C Instructions Discharge Diet: Low fat / Low cholesterol and 1800 Calorie Control Diet Discharge Activity: Return to Normal Activity Return to work on: 04/12/23 Meaningful Use Info Meaningful Use Diagnoses (Choose all that apply): None applicable Discharge Plan Admission Admit Date/Time: 04/10/23 02:20 Primary Reason for Your Visit: Chest Pain/Low BP Attending Provider: Radha Johnson Primary Care Provider: Milana Garcia Consulting Providers: Young Kiran Instructions Additional Instructions / Restrictions: 1. When having nausea, vomiting, or diarrhea and oral intake is decreased hold metformin 2. Hold blood pressure medication if when you are ill your blood pressure drops to below 130/80 and do not restart until it goes above this consistently 3. Please be sure to take the antibiotic, doxycycline, with a full glass of water and do not lie flat for 30 minutes following taking this medication. This may be contributing to your nausea. 4. We gave you a prescription for Protonix. As discussed this is to help with acid reflux and your stomach issues. If your symptoms do not improve in the next 2 to 4 weeks or worsen before that while on the medication please follow-up with your primary care physician Discharge Orders/Prescriptions Prescriptions: New pantoprazole 40 mg Tablet,Delayed Release (Dr/Ec) 40 mg PO DAILY Qty: 30 1RF Continued metformin 500 mg tablet 500 ea PO BID metoprolol succinate 50 mg tablet extended release 24 hr 50 ea PO DAILY albuterol sulfate 90 mcg/actuation HFA aerosol inhaler 2 puff inhalation Q6H PRN (Reason: shortness of breath or wheezing) Qty: 8.5 0RF lisinopril 40 mg tablet 40 mg PO DAILY aspirin 81 mg Tablet,Chewable 81 mg PO DAILY@0800 Qty: 30 0RF bupropion HCl 150 mg tablet extended release 24 hr 150 mg PO DAILY Label Comments: take 1 tablet by mouth once daily Jardiance 10 mg tablet 10 mg PO DAILY Label Comments: take 1 tablet by mouth once daily citalopram 20 mg tablet 20 mg PO DAILY Label Comments: take 1 tablet by mouth once daily doxycycline monohydrate 100 mg Capsule 100 mg PO BID methylprednisolone [Medrol] 8 mg Tablet 8 mg PO DAILY montelukast [Singulair] 10 mg Tablet 10 mg PO DAILY levocetirizine 5 mg Tablet 5 mg PO DAILY budesonide-formoterol [Symbicort] 80-4.5 mcg/actuation Hfa Aerosol Inhaler 1 puff INHALATION BID Referrals / Follow Up: Milana Garcia DO [Primary Care Provider] - Within 2 Weeks Disposition Disposition (needs filled in before D/C Order can be placed): Home, Self Care Charges/Coding Visit Charges Inpatient E&M: 87707 Disch Hosp >30min
[2023-04-11] MEDS: Pantoprazole Sodium 40 MG Tablet PO (09:43)
[2023-04-11 09:46] VITALS: BP 118/63; PULSE 85; RESP 14; TEMP 36.7; O2SAT 97
== END 2023-04-11 10:59 | disposition home or self-care (01) | DRG 641 ==
LOC: ED 22:55 → PCU 04-10 03:09
PROVIDERS: Admitting Provider Hospitalist; Emergency Provider Emergency Medicine; PCP Family Medicine; Visit Provider Internal Medicine
DX: E86.1 Hypovolemia (principal); N17.9 Acute kidney failure, unspecified; E87.20 Acidosis, unspecified; E11.51 Type 2 diabetes mellitus with diabetic peripheral angiopathy without gangrene; E11.59 Type 2 diabetes mellitus with other circulatory complications; I95.9 Hypotension, unspecified; E11.65 Type 2 diabetes mellitus with hyperglycemia; R11.10 Vomiting, unspecified; I10 Essential (primary) hypertension; E86.0 Dehydration; J30.2 Other seasonal allergic rhinitis; R19.7 Diarrhea, unspecified; F17.210 Nicotine dependence, cigarettes, uncomplicated; K21.9 Gastro-esophageal reflux disease without esophagitis; R07.9 Chest pain, unspecified; Z79.84 Long term (current) use of oral hypoglycemic drugs; Z79.82 Long term (current) use of aspirin; R21 Rash and other nonspecific skin eruption; R42 Dizziness and giddiness; F32.A Depression, unspecified
CPT/HCPCS: 36415; 70551; 71045; 80048; 81001; 82009; 82803; 82962; 83605; 84484; 85025; 85379; 87040; 93005; 94640; 99285; 99406; J7030; A4216; J2405

== ENCOUNTER → 2023-04-09 | Outpatient (CLI) | payer BC, SELFPAY ==
--- NOTE | 2023-04-09 10:13 | RAD_ITS ---
STUDY: X-RAY CHEST REASON FOR EXAM: Female, 48 years old. COPD TECHNIQUE: PA and lateral views of the chest. COMPARISON: Comparison is made with prior study dated January 21, 2023. FINDINGS: Hyperinflation. The lungs are clear. Scattered calcified granulomas. There is no demonstrated pleural abnormality. Normal size heart. Normal mediastinum and aviva. Normal visualized pulmonary arteries. Normal visualized aortic arch and descending thoracic aorta. Normal visualized thoracic spine. Normal visualized ribs, clavicles, and shoulders. There is no demonstrated abnormality of the visualized soft tissue structures of the upper abdomen. RAD/Chest PA and Lateral IMPRESSION: Hyperinflation. No acute abnormality is seen. Electronically Signed: Guy Roger MD at 15:25 EDT ,
== END | disposition home or self-care (01) ==
LOC: MTRAD 10:12
PROVIDERS: PCP Family Medicine; Referring Provider Family Medicine; Visit Provider Family Medicine
DX: J44.1 Chronic obstructive pulmonary disease with (acute) exacerbation (principal)
CPT/HCPCS: 71046

== ENCOUNTER 2023-05-04 19:52 | Emergency (ER) | payer BC, SELFPAY ==
[2023-05-04 19:53] VITALS: BP 99/62; PULSE 75; RESP 15; TEMP 36.3; O2SAT 93
[2023-05-04 21:23] VITALS: BMI 27.2
--- NOTE | 2023-05-04 21:27 | EKG12_ITS ---
Test Reason : DYSRHYTHMIA Blood Pressure : / mmHG Vent. Rate : 065 BPM Atrial Rate : 065 BPM P-R Int : 138 ms QRS Dur : 094 ms QT Int : 434 ms P-R-T Axes : 041 054 055 degrees QTc Int : 451 ms Normal sinus rhythm Normal ECG Confirmed by STEFFANY LEBLANC, IFRAH ([id number]), scientific editor JAVID JAMES ([id number]) on 05/05/2023 9:39:35 AM Referred By: ANDREA Confirmed By:IFRAH JETER MD
[2023-05-04 21:52] VITALS: BP 91/61; PULSE 69; PULSE 71
[2023-05-04 21:54] LABS: Absolute Lymphocyte Count 3.17 X10^3/uL (0.83-4.51); Absolute Neutrophil Count 4.6 X10^3/uL (2.0-7.7); Basophil# 0.04 X10^3/uL; Basophil% 0.4 % (0-1); Eosinophil# 0.24 X10^3/uL; Eosinophils% 2.7 % (0-5); Hematocrit 36.6 % (37-47); Hemoglobin 12.1 g/dL (12.0-15.0); Lymphocyte # 3.17 X10^3/ul (0.83-4.51); Lymphocyte % 35.6 % (19-41); Mean Corp Hgb Conc 33.1 g/dL (32-36); Mean Corpuscular Hgb 32.5 pg (27.0-32.0); Mean Corpuscular Volume 98.4 fL (81-99); Mean Platelet Vol. 9.4 fl (6.2-12.0); Monocyte# 0.84 X10^3/uL; Monocyte% 9.4 % (0-10); NRBC Flagged by Analyzer 0 % (0-5); Neutrophil # 4.57 X10^3/uL (2.7-7.7); Neutrophil % 51.3 % (47-70); Platelet Count 274 K/mm3 (150-450); RBC Distribution Width CV 13.3 % (11.6-14.6); RBC Distribution Width SD 47.8 fl (35.1-43.9); Red Blood Count 3.72 M/mm3 (4.2-5.4); White Blood Count 8.9 K/mm3 (4.4-11.0)
[2023-05-04 21:59] VITALS: BP 109/64; PULSE 73; RESP 16; O2SAT 95
--- NOTE | 2023-05-04 22:08 | RAD_ITS ---
INDICATION: chest pain EXAMINATION/TECHNIQUE: X-RAY - XR Chest 1 View AP portable. 10:06 PM COMPARISON: 04/09/2023 FINDINGS: LINES/DEVICES: None. LUNGS: No consolidation. No pneumothorax. MEDIASTINUM: Unremarkable. CARDIAC SILHOUETTE: Not enlarged. BONES AND SOFT TISSUES: No acute abnormalities. RAD/Chest 1 View (Portable) IMPRESSION: No evidence of active intrathoracic disease. Electronically Signed: Melody Case MD at 22:33 EDT ,
[2023-05-04 22:12] LABS: Anion Gap 6 (5-15); BUN 14 mg/dL (7-18); BUN/Creat Ratio 19.2 RATIO (10-20); Calcium,Total 8.6 mg/dL (8.5-10.1); Chloride 105 mmol/L (98-107); Creatinine, Serum 0.73 mg/dL (0.55-1.02); EST Glomerular Filtration Rate 91 mL/min (>60); Est Glom Filt Rate - Afr Amer 110 mL/min (>60); Estimated Creatinine Clearance 83.15 ml/min; Glucose 103 mg/dL (74-106); Potassium 3.4 mmol/L (3.5-5.1); Sodium Level 138 mmol/L (136-145); Troponin-I HS (w/2H Reflex) < 3 pg/mL (3.0-54.0)
--- NOTE | 2023-05-04 22:35 | CT_ITS ---
INDICATION: Pain EXAMINATION: CT BRAIN - CT Head or Brain W/O Contrast Injection TECHNIQUE: Multiple axial images were obtained of the head without intravenous contrast. A radiation dose optimization technique was used for this scan. IV Contrast dosage and agent: None. RADIATION DOSAGE (If Supplied By Facility): CTDIvol = ( 44.99 ) mGy, DLP = ( 745.49 ) mGycm COMPARISON: CT head 09/05/2022 FINDINGS: BRAIN: No acute bleed. No edema. Melo-white matter differentiation is maintained. VENTRICLES AND SULCI: Not dilated. EXTRA-AXIAL: No hemorrhage, fluid collection, or mass. CALVARIUM / SKULL BASE: Unremarkable. FACE/SINUSES: Unremarkable. SOFT TISSUES: Unremarkable. CT/Brain/Head without Contrast IMPRESSION: No acute abnormality. Electronically Signed: Melody Case MD at 0:10 EDT ,
--- NOTE | 2023-05-04 22:35 | EX.ED.DYSGE1 ---
HPI History of Present Illness Chief Complaint: Syncope Narrative Narrative: 48-year-old female presenting with an episode of syncope. She states she was at home today and her was cooking on the grill. She remembers being outside and speaking with somebody and then came inside to cook on the air Fryer. She states she was sitting on a stool and the next day how she woke up on the ground. She did hit her head. She does not recall the event. She has a mild headache but denies neck pain. No other injuries. Patient does have a history of syncope in the past. She is not having chest pain or shortness of breath. She is not anticoagulated. She reports a recent echo which is normal. She had a cardiac cath 11/19/2022 which was normal. [facility] Medical History Acute lumbar myofascial strain Alcohol abuse Anxiety COPD (chronic obstructive pulmonary disease) CPAP (continuous positive airway pressure) dependence Depression Diabetes GERD (gastroesophageal reflux disease) History of left heart catheterization (LHC) (~11/19/22) HTN (hypertension) Myocardial infarct Pancreatitis Seizures Sleep apnea Smoker Strain of left hip Type 2 diabetes mellitus Home Medications metformin 500 mg tablet 500 ea PO BID DIABETES 10/31/22 [History Last Taken 11/17/22 21:30] metoprolol succinate 50 mg tablet,extended release 24 hr 50 ea PO DAILY BLOOD PRESSURE 10/31/22 [History Last Taken 11/17/22 09:00] lisinopril 40 mg tablet 20 mg PO DAILY BLOOD PRESSURE 11/18/22 [History Last Taken 11/17/22 09:00] aspirin 81 mg chewable tablet 81 mg PO DAILY@0800 #30 tabs 11/19/22 [Rx Last Taken Unknown] bupropion HCl 150 mg 24 hr tablet, extended release 150 mg PO DAILY 01/21/23 [History Last Taken Unknown] empagliflozin 10 mg tablet (Jardiance) 10 mg PO DAILY 01/21/23 [History Last Taken Unknown] albuterol sulfate 90 mcg/actuation aerosol inhaler 2 puff inhalation Q6H PRN shortness of breath or wheezing #8.5 grams 02/12/23 [Rx Last Taken Unknown] citalopram 20 mg tablet 20 mg PO DAILY 03/22/23 [History Last Taken Unknown] budesonide-formoterol HFA 80 mcg-4.5 mcg/actuation aerosol inhaler (Symbicort) 1 puff inhalation BID 04/09/23 [History Last Taken Unknown] levocetirizine 5 mg tablet 5 mg PO DAILY 04/09/23 [History Last Taken Unknown] montelukast 10 mg tablet (Singulair) 10 mg PO DAILY 04/09/23 [History Last Taken Unknown] pantoprazole 40 mg tablet,delayed release 40 mg PO BID 05/04/23 [History Last Taken Unknown] Allergy/AdvReac Type Severity Reaction Status Date / Time No Known Allergies Allergy Verified 05/04/23 19:58 Family History Grandfather CVA (cerebral vascular accident) Diabetes Mother Cancer Father Hypertension Grandmother Hypertension Diabetes Surgical History H/O tooth extraction History of cholecystectomy plantar fasciitis release Social History household members: spouse Smoking Status: Current every day smoker tobacco type: cigarettes alcohol intake: current alcohol intake frequency: a few times a month Alcohol type: hard liquor substance use type: does not use ROS ROS ED Constitutional Constitutional ED: Denies chills, fever(s) or sweats Eyes Eyes: Denies blurry vision or change in vision ENT ENT ED: Denies ear pain or sore throat Cardiovascular Cardiovascular: Denies chest pain, palpitations or racing heartbeat Respiratory/Chest Respiratory/Chest: Denies cough, dyspnea or sputum Gastrointestinal Gastrointestinal: Denies abdominal pain, constipation, diarrhea, nausea or vomiting Genitourinary Genitourinary ED: Denies dysuria, hematuria or urinary frequency Musculoskeletal Musculoskeletal: Denies arthralgias, myalgias or neck pain Integumentary Denies abscess, Abrasions or rash Neurologic Neurologic: Reports headache(s) Psychiatric Psychiatric: Denies anxiety, depression, suicidal ideation or suicidal thoughts Endocrine Endocrinology: Denies polydipsia or polyuria EXAM Physical Exam Const Vital Signs: 05/04/23 19:53 05/04/23 21:16 05/04/23 21:43 Temperature 97.3 F L Temperature Source Temporal Pulse Rate 75 Pulse Rate [Lying] Pulse Rate [Sitting (for 1 minute prior to obtaining)] Respiratory Rate 15 Respiratory Pattern Normal Blood Pressure 99/62 Blood Pressure [Lying] Blood Pressure Mean 74 Blood Pressure Mean [Lying] Pulse Ox 93 Oxygen Delivery Method Room Air Room Air 05/04/23 21:52 05/04/23 21:59 05/04/23 23:00 Temperature Temperature Source Pulse Rate 73 76 Pulse Rate [Lying] 69 Pulse Rate [Sitting (for 1 minute prior to obtaining)] 71 Respiratory Rate 16 12 Respiratory Pattern Blood Pressure 109/64 86/56 L Blood Pressure [Lying] 91/61 Blood Pressure Mean 79 66 Blood Pressure Mean [Lying] 71 Pulse Ox 95 95 Oxygen Delivery Method Room Air Room Air Positive well nourished General Appearance ED: Negative for pallor HEENT Reports moist mucous membranes Negative for trauma Eyes PERRL and EOMs intact bilaterally Resp normal respiratory effort Auscultation: Negative for rales, rhonchi or wheezes Cardio regular rate and regular rhythm GI normal to inspection, nondistended, normoactive bowel sounds Extremity normal to inspection Neuro oriented x3 and CN's II-XII intact bilaterally Sensorium / Orientation: alert Psych mental status grossly normal Skin no rashes or lesions noted and no wounds General Skin Exam: Negative for jaundice or pallor MDM MDM MDM Narrative Medical decision making narrative: 48-year-old female presenting with an episode of syncope. She does have a mild headache. EKG showed a sinus rhythm at a rate of 65 bpm without sign of ischemic change or ectopy on my interpretation. Chest x-ray on my interpretation is no acute cardiopulmonary process. Radiologist are present and agrees. CBC and BMP are unremarkable. High-sensitivity troponin is less than 3. She has not reported any chest pain. Patient's orthostatic vital signs show her blood pressure is 91/61 and when she sits up it is 109/64 however when she stands 85/56. This is technically not orthostatic hypotension. He was given a liter of IV fluids. Patient looks well. Her headache was treated with Reglan and Benadryl. On reevaluation she is sleeping comfortably. I will have the patient ambulated. Patient discharged home in stable condition. Impression: 1. Syncope 2. Closed head injury 3. Head Lab Data Attestation: I reviewed the patient's lab results. Labs: Laboratory Results - last 24 hr 05/04/23 05/04/23 21:40 21:40 WBC 8.9 RBC 3.72 L Hgb 12.1 Hct 36.6 L MCV 98.4 MCH 32.5 H MCHC 33.1 RDW Std Deviation 47.8 H RDW Coeff of Braxton 13.3 Plt Count 274 MPV 9.4 Immature Gran % (Auto) 0.600 Neut % (Auto) 51.3 Lymph % (Auto) 35.6 [place] % (Auto) 9.4 Eos % (Auto) 2.7 Baso % (Auto) 0.4 Absolute Neuts (auto) 4.6 Absolute Lymphs (auto) 3.17 Nucleated RBC % 0 Sodium 138 Potassium 3.4 L Chloride 105 Carbon Dioxide 27.0 Anion Gap 6 BUN 14 Creatinine 0.73 Estim Creat Clear Calc 83.15 Est GFR (MDRD) Af Amer 110 Est GFR (MDRD) Non-Af 91 BUN/Creatinine Ratio 19.2 Glucose 103 Calcium 8.6 Troponin I High Sens < 3 L Radiography Diagnostic Testing: Clinical Impression(s) from Imaging Studies Chest X-Ray 05/04/23 22:08 IMPRESSION: No evidence of active intrathoracic disease. Electronically Signed: Melody Case MD at 22:33 EDT , Brain CT 05/04/23 22:35 IMPRESSION: No acute abnormality. Electronically Signed: Melody Case MD at 0:10 EDT , Discharge Plan Triage Chief Complaint: Syncope Other Complaint: Weakness ED Provider: John Dyer Dx/Rx/DC Orders Prescriptions: No Action metformin 500 mg tablet 500 ea PO BID metoprolol succinate 50 mg tablet extended release 24 hr 50 ea PO DAILY albuterol sulfate 90 mcg/actuation HFA aerosol inhaler 2 puff inhalation Q6H PRN (Reason: shortness of breath or wheezing) Qty: 8.5 0RF lisinopril 40 mg tablet 20 mg PO DAILY aspirin 81 mg Tablet,Chewable 81 mg PO DAILY@0800 Qty: 30 0RF bupropion HCl 150 mg tablet extended release 24 hr 150 mg PO DAILY Label Comments: take 1 tablet by mouth once daily Jardiance 10 mg tablet 10 mg PO DAILY Label Comments: take 1 tablet by mouth once daily citalopram 20 mg tablet 20 mg PO DAILY Label Comments: take 1 tablet by mouth once daily montelukast [Singulair] 10 mg Tablet 10 mg PO DAILY levocetirizine 5 mg Tablet 5 mg PO DAILY budesonide-formoterol [Symbicort] 80-4.5 mcg/actuation Hfa Aerosol Inhaler 1 puff INHALATION BID pantoprazole 40 mg tablet,delayed release (DR/EC) 40 mg PO BID Primary Care Provider: Milana Garcia Referrals: Milana Garcia, [Primary Care Provider] -
[2023-05-04 23:00] VITALS: BP 86/56; PULSE 76; RESP 12; O2SAT 95
[2023-05-04] MEDS: proCHLORPERazine 10 MG/2 ML Vial IV (23:14)
[2023-05-04] MEDS: DiphenhydrAMINE 50 MG/ML Syringe 25 MG IV (23:14)
[2023-05-04] MEDS: Meclizine HCl 25 MG Tablet PO (23:20)
[2023-05-04] MEDS: 0.9% Normal Saline 1,000 ML 999 ML IV (23:21)
[2023-05-04 23:51] LABS: Reflex Troponin-HS? (from REC) Y
[2023-05-05 00:49] LABS: Troponin-I HS < 3 pg/mL (3.0-54.0)
[2023-05-05 00:54] VITALS: BP 97/62; PULSE 68; RESP 16; O2SAT 96
== END 2023-05-05 01:11 | disposition home or self-care (01) ==
PROVIDERS: Emergency Provider Student in an Organized Health Care Education/Training Program; PCP Family Medicine; Visit Provider Student in an Organized Health Care Education/Training Program
DX: R55 Syncope and collapse (principal); J44.9 Chronic obstructive pulmonary disease, unspecified; E11.9 Type 2 diabetes mellitus without complications; R53.1 Weakness; I10 Essential (primary) hypertension; F17.210 Nicotine dependence, cigarettes, uncomplicated; S09.90XA Unspecified injury of head, initial encounter; W01.10XA Fall on same level from slipping, tripping and stumbling with subsequent striking against unspecified object, initial encounter
CPT/HCPCS: 70450; 71045; 80048; 84484; 85025; 93005; 96361; 96374; 96375; 99285; J7030; A4216

== ENCOUNTER → 2023-05-19 | Outpatient (CLI) | payer BC, SELFPAY ==
[2023-05-19 13:27] LABS: Vitamin B12 361 pg/mL (211-911)
[2023-05-19 13:56] LABS: AST(SGOT) 18 U/L (15-37); Alanine Aminotransfer ALT/SGPT 22 U/L (13-56); Albumin, Serum 3.4 g/dL (3.2-5.0); Alkaline Phosphatase 69 U/L (45-117); Bilirubin, Direct 0.11 mg/dL (0.00-0.30); Ferritin 69 ng/mL (8-252); Globulin 3.8 g/dL (2.2-4.2); Magnesium 1.8 mg/dL (1.6-2.6); Phosphorus 2.6 mg/dL (2.5-4.9); Protein, Total 7.2 g/dL (6.4-8.2); T4 Free Direct 0.78 ng/dL (0.76-1.46); Thyroid Stim Hormone (TSH) 1.95 uIU/mL (0.358-3.74)
== END | disposition home or self-care (01) ==
LOC: MFPLAB 11:02
PROVIDERS: PCP Family Medicine; Visit Provider Family Medicine
DX: R42 Dizziness and giddiness (principal)
CPT/HCPCS: 36415; 80076; 82607; 82728; 82746; 83735; 84100; 84439; 84443

== ENCOUNTER 2023-05-24 21:22 | Emergency (ER) | payer BC, SELFPAY ==
[2023-05-24 21:32] VITALS: BP 101/53; PULSE 87; RESP 24; TEMP 35.9; O2SAT 94; BMI 28.9
--- NOTE | 2023-05-24 22:16 | CT_ITS ---
INDICATION: syncope, headache EXAMINATION: CT BRAIN - CT Head or Brain W/O Contrast Injection TECHNIQUE: Multiple axial images were obtained of the head without intravenous contrast. A radiation dose optimization technique was used for this scan. IV Contrast dosage and agent: None. RADIATION DOSAGE (If Supplied By Facility): CTDIvol = ( 44.99 ) mGy, DLP = ( 745.49 ) mGycm COMPARISON: CT head 05/04/2023. FINDINGS: BRAIN: No acute bleed. No edema. Melo-white matter differentiation is maintained. VENTRICLES AND SULCI: Not dilated. EXTRA-AXIAL: No hemorrhage, fluid collection, or mass. CALVARIUM / SKULL BASE: Unremarkable. FACE/SINUSES: Unremarkable. SOFT TISSUES: Unremarkable. CT/Brain/Head without Contrast IMPRESSION: No acute abnormality. Electronically Signed: Melody Case MD at 23:01 EDT ,
--- NOTE | 2023-05-24 22:16 | EKG12_ITS ---
Test Reason : DYSRHYTHMIA Blood Pressure : / mmHG Vent. Rate : 082 BPM Atrial Rate : 082 BPM P-R Int : 136 ms QRS Dur : 088 ms QT Int : 406 ms P-R-T Axes : 061 060 056 degrees QTc Int : 474 ms Normal sinus rhythm Normal ECG Confirmed by STEFFANY LEBLANC, IFRAH ([id number]), fan mail editor JAVID JAMES ([id number]) on 05/25/2023 8:56:10 AM Referred By: PHANI Confirmed By:IFRAH JETER MD
[2023-05-24 22:22] VITALS: BP 101/58
[2023-05-24] MEDS: 0.9% Normal Saline 1,000 ML 1000 ML IV (22:35)
[2023-05-24 22:42] LABS: Bacteria 0 SEEN /hpf (None Seen); Mucous, Urine 0 SEEN /hpf (<or=2+); Red Blood Cells-Urine 0 SEEN /hpf (0-5); Squamous Epithelial Cells - UA 0 SEEN /hpf (5-10); White Blood Cells 0 SEEN /hpf (0-5)
--- NOTE | 2023-05-24 22:43 | RAD_ITS ---
INDICATION: sob EXAMINATION/TECHNIQUE: X-RAY - XR Chest 1 View AP portable. 10:40 PM. COMPARISON: 05/04/2023 FINDINGS: LINES/DEVICES: None. LUNGS: No consolidation. No pneumothorax. MEDIASTINUM: Unremarkable. CARDIAC SILHOUETTE: Not enlarged. BONES AND SOFT TISSUES: No acute abnormalities. RAD/Chest 1 View (Portable) IMPRESSION: No evidence of active intrathoracic disease. Electronically Signed: Melody Case MD at 23:08 EDT ,
[2023-05-24 22:45] LABS: Absolute Lymphocyte Count 3.25 X10^3/uL (0.83-4.51); Absolute Neutrophil Count 2.9 X10^3/uL (2.0-7.7); Basophil# 0.05 X10^3/uL; Basophil% 0.7 % (0-1); Eosinophil# 0.16 X10^3/uL; Eosinophils% 2.2 % (0-5); Hematocrit 38.8 % (37-47); Hemoglobin 12.9 g/dL (12.0-15.0); Lymphocyte # 3.25 X10^3/ul (0.83-4.51); Mean Corp Hgb Conc 33.2 g/dL (32-36); Mean Corpuscular Hgb 33.2 pg (27.0-32.0); Mean Platelet Vol. 9.8 fl (6.2-12.0); Monocyte# 0.82 X10^3/uL; Monocyte% 11.4 % (0-10); NRBC Flagged by Analyzer 0 % (0-5); Neutrophil # 2.91 X10^3/uL (2.7-7.7); Neutrophil % 40.3 % (47-70); Platelet Count 276 K/mm3 (150-450); RBC Distribution Width CV 12.6 % (11.6-14.6); RBC Distribution Width SD 46.2 fl (35.1-43.9); Red Blood Count 3.88 M/mm3 (4.2-5.4); White Blood Count 7.2 K/mm3 (4.4-11.0)
[2023-05-24 22:49] LABS: Color, Urine Yellow (Yellow); Glucose, Dipstick 1000 mg/dl (Normal); Ketone-Dipstick Negative (Negative); Leukocyte Esterase-Dipstick Negative /ul (Negative); Nitrite-Dipstick Negative (Negative); Occult Blood-Urine Negative /ul (Negative); Protein-Dipstick Negative (Negative); Specific Gravity, Urine 1.005 (1.002-1.030); Urine Bilirubin Dipstick Negative (Negative); Urine Clarity Clear (Clear); Urine Urobilinogen Normal (Normal); Urine pH 6.5 (5.0 - 8.0)
[2023-05-24 23:05] LABS: Internal QC Validated? YES +Cl - CLEAR BKGD; Pregnancy, Serum, hCG Quali. NEGATIVE Negative
[2023-05-24 23:08] LABS: AST(SGOT) 47 U/L (15-37); Alanine Aminotransfer ALT/SGPT 27 U/L (13-56); Albumin, Serum 2.9 g/dL (3.2-5.0); Alkaline Phosphatase 57 U/L (45-117); Anion Gap 7 (5-15); BUN 12 mg/dL (7-18); BUN/Creat Ratio 9.1 RATIO (10-20); Bilirubin, Direct < 0.05 mg/dL (0.00-0.30); Calcium,Total 7.5 mg/dL (8.5-10.1); Chloride 112 mmol/L (98-107); Creatinine, Serum 1.32 mg/dL (0.55-1.02); EST Glomerular Filtration Rate 46 mL/min (>60); Est Glom Filt Rate - Afr Amer 56 mL/min (>60); Estimated Creatinine Clearance 45.99 ml/min; Globulin 3.8 g/dL (2.2-4.2); Glucose 127 mg/dL (74-106); Lipase 64 U/L (13-75); Potassium 5.9 mmol/L (3.5-5.1); Protein, Total 6.7 g/dL (6.4-8.2); Sodium Level 138 mmol/L (136-145); Troponin-I HS (w/2H Reflex) < 3 pg/mL (3.0-54.0)
--- NOTE | 2023-05-24 23:16 | EX.ED.DYSGE1 ---
HPI History of Present Illness Chief Complaint: Syncope Informant: patient Onset/Context/Timing Onset: Today Narrative Narrative: Patient presents via EMS after 2 syncopal episodes. Patient does not remember what happened. She and spouse at bedside states that she has had frequent syncopal episodes. She was seen in the ER earlier this month for similar. At that time was felt that her syncope was secondary to low blood pressure. She just received a 14-day electronics department manager in the mail that she will wear. Nursing staff documented that she was ANO x1 on arrival, however the time of my exam she is alert and oriented and spouse even comments that her memory is better. Patient does have a history of seizures listed, however when I asked her about this she states that in the past she had had some tremors but there has never been seizures documented. [facility] Medical History Acute lumbar myofascial strain Alcohol abuse Anxiety COPD (chronic obstructive pulmonary disease) CPAP (continuous positive airway pressure) dependence Depression Diabetes GERD (gastroesophageal reflux disease) History of left heart catheterization (LHC) (~11/19/22) HTN (hypertension) Myocardial infarct Pancreatitis Seizures Sleep apnea Smoker Strain of left hip Type 2 diabetes mellitus Home Medications metformin 500 mg tablet 500 ea PO BID DIABETES 10/31/22 [History Last Taken 11/17/22 21:30] lisinopril 40 mg tablet 20 mg PO DAILY BLOOD PRESSURE 11/18/22 [History Last Taken 11/17/22 09:00] aspirin 81 mg chewable tablet 81 mg PO DAILY@0800 #30 tabs 11/19/22 [Rx Last Taken Unknown] bupropion HCl 150 mg 24 hr tablet, extended release 150 mg PO DAILY 01/21/23 [History Last Taken Unknown] empagliflozin 10 mg tablet (Jardiance) 10 mg PO DAILY 01/21/23 [History Last Taken Unknown] albuterol sulfate 90 mcg/actuation aerosol inhaler 2 puff inhalation Q6H PRN shortness of breath or wheezing #8.5 grams 02/12/23 [Rx Last Taken Unknown] citalopram 20 mg tablet 20 mg PO DAILY 03/22/23 [History Last Taken Unknown] budesonide-formoterol HFA 80 mcg-4.5 mcg/actuation aerosol inhaler (Symbicort) 1 puff inhalation BID 04/09/23 [History Last Taken Unknown] levocetirizine 5 mg tablet 5 mg PO DAILY 04/09/23 [History Last Taken Unknown] montelukast 10 mg tablet (Singulair) 10 mg PO DAILY 04/09/23 [History Last Taken Unknown] pantoprazole 40 mg tablet,delayed release 40 mg PO BID 05/04/23 [History Last Taken Unknown] metoprolol succinate 50 mg tablet,extended release 24 hr 25 mg PO DAILY BLOOD PRESSURE 05/20/23 [History Last Taken Unknown] Allergy/AdvReac Type Severity Reaction Status Date / Time No Known Allergies Allergy Verified 05/24/23 21:22 Family History Grandfather CVA (cerebral vascular accident) Diabetes Mother Cancer Father Hypertension Grandmother Hypertension Diabetes Surgical History H/O tooth extraction History of cholecystectomy plantar fasciitis release Social History household members: spouse Smoking Status: Current every day smoker tobacco type: cigarettes alcohol intake: current alcohol intake frequency: a few times a month Alcohol type: hard liquor substance use type: does not use ROS ROS ED Constitutional Constitutional ED: Denies chills or fever(s) Eyes Eyes: Denies discharge from eye(s) ENT ENT ED: Denies discharge from eye(s), rhinorrhea or sore throat Cardiovascular Cardiovascular: Denies chest pain or palpitations Respiratory/Chest Respiratory/Chest: Denies cough or dyspnea Gastrointestinal Gastrointestinal: Denies abdominal pain, nausea or vomiting Genitourinary Genitourinary ED: Reports urinary frequency; Denies difficulty urinating or dysuria Musculoskeletal Musculoskeletal: Denies back pain or extremity pain Integumentary Denies Abrasions or rash Neurologic Neurologic: Denies headache(s) or weakness Psychiatric Psychiatric: Denies anxiety or depression Endocrine Endocrinology: Reports polydipsia and polyuria Allergic/Immunologic Allergic/Immunologic ED: Denies lip swelling or urticaria EXAM Physical Exam Const Vital Signs: 05/24/23 21:32 05/24/23 22:22 05/25/23 00:39 Temperature 96.7 F L Temperature Source Temporal Pulse Rate 87 89 Respiratory Rate 24 H 24 H Blood Pressure 101/53 L 101/58 L 115/66 Blood Pressure Mean 69 72 82 Pulse Ox 94 96 Oxygen Delivery Method Room Air Room Air 05/25/23 01:03 05/25/23 02:11 Temperature Temperature Source Pulse Rate 90 90 Respiratory Rate 16 23 H Blood Pressure 118/69 124/69 H Blood Pressure Mean 85 87 Pulse Ox 94 Oxygen Delivery Method Room Air Positive well nourished and well developed General Appearance ED: well developed HEENT Reports normocephalic and head/scalp atraumatic Eyes PERRL and EOMs intact bilaterally Neck supple Chest Wall inspection of chest normal and palpation of chest normal Resp normal respiratory effort and clear to auscultation bilaterally Cardio regular rate and regular rhythm GI normal to inspection, nondistended, normoactive bowel sounds Palpation: soft Extremity normal to inspection Neuro oriented x3 and no sensory deficits noted Sensorium / Orientation: alert Motor Exam: strength 5/5 throughout Psych mental status grossly normal Skin no rashes or lesions noted MDM MDM MDM Narrative Medical decision making narrative: The time of my exam patient's blood pressure is low at 88 systolic. She is given IV fluid boluses. EKG obtained to evaluate for cardiac arrhythmia/ischemia. Chest x-ray obtained to evaluate for acute lung pathology, cardiac size, or mediastinal abnormality. Labwork obtained to evaluate for leukocytosis, anemia, and electrolyte derangement. CT scan of the head obtained given mild headache and syncopal episodes. Lab Data Attestation: I reviewed the patient's lab results. Labs: Laboratory Results - last 24 hr 05/24/23 05/24/23 05/24/23 22:34 22:34 22:34 WBC 7.2 RBC 3.88 L Hgb 12.9 Hct 38.8 MCV 100.0 H MCH 33.2 H MCHC 33.2 RDW Std Deviation 46.2 H RDW Coeff of Braxton 12.6 Plt Count 276 MPV 9.8 Immature Gran % (Auto) 0.400 Neut % (Auto) 40.3 L Lymph % (Auto) 45.0 H [place] % (Auto) 11.4 H Eos % (Auto) 2.2 Baso % (Auto) 0.7 Absolute Neuts (auto) 2.9 Absolute Lymphs (auto) 3.25 Nucleated RBC % 0 Sodium 138 Potassium 5.9 H Chloride 112 H Carbon Dioxide 19.0 L Anion Gap 7 BUN 12 Creatinine 1.32 H Estim Creat Clear Calc 45.99 Est GFR (MDRD) Af Amer 56 L Est GFR (MDRD) Non-Af 46 L BUN/Creatinine Ratio 9.1 L Glucose 127 H Calcium 7.5 L Total Bilirubin 0.20 Direct Bilirubin < 0.05 AST 47 H ALT 27 Alkaline Phosphatase 57 Troponin I High Sens < 3 L Total Protein 6.7 Albumin 2.9 L Globulin 3.8 Lipase 64 Serum , Qual Urine Color Urine Clarity Urine pH Ur Specific Butler Urine Protein Urine Glucose (UA) Urine Ketones Urine Occult Blood Urine Nitrite Urine Bilirubin Urine Urobilinogen Ur Leukocyte Esterase Urine RBC Urine WBC Ur Squamous Epith Cells Urine Bacteria Urine Mucus Ethyl Alcohol 193.0 Acetone Level NEGATIVE 05/24/23 05/24/23 05/25/23 22:34 22:34 01:00 WBC RBC Hgb Hct MCV MCH MCHC RDW Std Deviation RDW Coeff of Braxton Plt Count MPV Immature Gran % (Auto) Neut % (Auto) Lymph % (Auto) [place] % (Auto) Eos % (Auto) Baso % (Auto) Absolute Neuts (auto) Absolute Lymphs (auto) Nucleated RBC % Sodium Potassium Chloride Carbon Dioxide Anion Gap BUN Creatinine Estim Creat Clear Calc Est GFR (MDRD) Af Amer Est GFR (MDRD) Non-Af BUN/Creatinine Ratio Glucose Calcium Total Bilirubin Direct Bilirubin AST ALT Alkaline Phosphatase Troponin I High Sens 3 Total Protein Albumin Globulin Lipase Serum , Qual NEGATIVE Urine Color Yellow Urine Clarity Clear Urine pH 6.5 Ur Specific Butler 1.005 Urine Protein Negative Urine Glucose (UA) 1000 H Urine Ketones Negative Urine Occult Blood Negative Urine Nitrite Negative Urine Bilirubin Negative Urine Urobilinogen Normal Ur Leukocyte Esterase Negative Urine RBC 0 SEEN Urine WBC 0 SEEN Ur Squamous Epith Cells 0 SEEN Urine Bacteria 0 SEEN Urine Mucus 0 SEEN Ethyl Alcohol Acetone Level Radiography Chest X-Ray - ED: 1 View, Read by ED Physician, Normal, Heart, Lungs and Mediastinum Diagnostic Testing: Clinical Impression(s) from Imaging Studies Brain CT 05/24/23 22:16 IMPRESSION: No acute abnormality. Electronically Signed: Melody Case MD at 23:01 EDT , Chest X-Ray 05/24/23 22:43 IMPRESSION: No evidence of active intrathoracic disease. Electronically Signed: Melody Case MD at 23:08 EDT , EKG Initial EKG: Attestation: I personally reviewed and interpreted this EKG as follows: Interpretation: Sinus Rhythm (Sinus 82 with no acute ischemia.) Treatment and Re-Evaluation :: EKG is sinus rhythm with no acute ischemia. Patient's had no significant arrhythmias noted on electronics department manager throughout her ED stay. Portable chest x-ray per my interpretation reveals no acute findings. Radiology interpretation is reviewed and agrees. CT scan of the head is unremarkable. CBC reveals normal white count at 7.2 with a hemoglobin of 12.9. Chemistry studies document a potassium of 5.9, however moderate hemolysis is noted. She has no EKG changes consistent with hyperkalemia. BUN is 12 and creatinine is 1.32. Appears her baseline is around 0.8. Her glucose is 127. LFTs are unremarkable. Initial troponin is less than 3. Serum acetone is negative and EtOH level is 193. test is negative. Urinalysis reveals 1000 of glucose with no acute sign of infection. 2-hour repeat troponin is 3. After the patient had had a liter and a half of IV fluids her blood pressure has improved to the 1 teens systolic. She states this is where her blood pressure normally runs. Nursing staff got up to ambulate her but she did become dizzy. She completed a full 2 L of IV fluids and at this time is able to ambulate to the restroom and back. Patient has had multiple episodes of syncope and has been worked up. She just got her electronics department manager in the mail tonight to put on. She states her doctor is also talking about a possible tilt table test. At this time she does not want to stay in the hospital and I do feel with prior work-ups this is reasonable. Patient will follow-up closely with her physician and return instructions been provided. Discharge Plan Triage Chief Complaint: Syncope ED Provider: Caprice Jerry Dx/Rx/DC Orders Clinical Impression: Syncope and collapse, Dehydration, Elevated ETOH level Instructions: ED Dehydration (Adult), ED Low Blood Pressure, All Causes, ED Fainting, Uncertain Cause Prescriptions: No Action metformin 500 mg tablet 500 ea PO BID metoprolol succinate 50 mg tablet extended release 24 hr 25 mg PO DAILY albuterol sulfate 90 mcg/actuation HFA aerosol inhaler 2 puff inhalation Q6H PRN (Reason: shortness of breath or wheezing) Qty: 8.5 0RF lisinopril 40 mg tablet 20 mg PO DAILY aspirin 81 mg Tablet,Chewable 81 mg PO DAILY@0800 Qty: 30 0RF bupropion HCl 150 mg tablet extended release 24 hr 150 mg PO DAILY Label Comments: take 1 tablet by mouth once daily Jardiance 10 mg tablet 10 mg PO DAILY Label Comments: take 1 tablet by mouth once daily citalopram 20 mg tablet 20 mg PO DAILY Label Comments: take 1 tablet by mouth once daily montelukast [Singulair] 10 mg Tablet 10 mg PO DAILY levocetirizine 5 mg Tablet 5 mg PO DAILY budesonide-formoterol [Symbicort] 80-4.5 mcg/actuation Hfa Aerosol Inhaler 1 puff INHALATION BID pantoprazole 40 mg tablet,delayed release (DR/EC) 40 mg PO BID Primary Care Provider: Milana Garcia Referrals: Milana Garcia, DO [Primary Care Provider] - 3-5 Days Disposition Disposition: Home, Self Care
[2023-05-25 00:39] VITALS: BP 115/66; PULSE 89; RESP 24; O2SAT 96
[2023-05-25] MEDS: 0.9% Normal Saline 1,000 ML 999 ML IV (00:39)
[2023-05-25 00:40] LABS: Reflex Troponin-HS? (from REC) Y
[2023-05-25 01:03] VITALS: BP 118/69; PULSE 90; RESP 16
[2023-05-25 01:21] LABS: Troponin-I HS 3 pg/mL (3.0-54.0)
[2023-05-25 02:11] VITALS: BP 124/69; PULSE 90; RESP 23; O2SAT 94
[2023-05-25 02:54] VITALS: BP 132/64; PULSE 90; RESP 18
== END 2023-05-25 02:55 | disposition home or self-care (01) ==
PROVIDERS: Emergency Provider Emergency Medicine; PCP Family Medicine; Visit Provider Emergency Medicine
DX: R55 Syncope and collapse (principal); J44.9 Chronic obstructive pulmonary disease, unspecified; E11.9 Type 2 diabetes mellitus without complications; E86.0 Dehydration; I10 Essential (primary) hypertension; Z79.84 Long term (current) use of oral hypoglycemic drugs; Z79.899 Other long term (current) drug therapy; Z79.82 Long term (current) use of aspirin; F32.A Depression, unspecified; Z79.51 Long term (current) use of inhaled steroids; K21.9 Gastro-esophageal reflux disease without esophagitis; R78.0 Finding of alcohol in blood; F17.210 Nicotine dependence, cigarettes, uncomplicated; Y90.6 Blood alcohol level of 120-199 mg/100 ml
CPT/HCPCS: 36415; 70450; 71045; 80048; 80076; 81001; 82009; 82077; 83690; 84484; 84703; 85025; 93005; 96360; 96361; 99285; J7030; A4216

== ENCOUNTER → 2023-07-19 | Outpatient (CLI) | payer BC, SELFPAY ==
[2023-07-19 18:08] LABS: Absolute Lymphocyte Count 2.51 X10^3/uL (0.83-4.51); Absolute Neutrophil Count 3.7 X10^3/uL (2.0-7.7); Basophil# 0.03 X10^3/uL; Basophil% 0.4 % (0-1); Eosinophil# 0.23 X10^3/uL; Eosinophils% 3.2 % (0-5); Hematocrit 37.5 % (37-47); Hemoglobin 12.3 g/dL (12.0-15.0); Lymphocyte # 2.51 X10^3/ul (0.83-4.51); Lymphocyte % 35.1 % (19-41); Mean Corp Hgb Conc 32.8 g/dL (32-36); Mean Corpuscular Hgb 32.1 pg (27.0-32.0); Mean Corpuscular Volume 97.9 fL (81-99); Mean Platelet Vol. 9.6 fl (6.2-12.0); Monocyte# 0.64 X10^3/uL; NRBC Flagged by Analyzer 0 % (0-5); Neutrophil # 3.72 X10^3/uL (2.7-7.7); Platelet Count 245 K/mm3 (150-450); RBC Distribution Width CV 12.3 % (11.6-14.6); RBC Distribution Width SD 43.8 fl (35.1-43.9); Red Blood Count 3.83 M/mm3 (4.2-5.4); White Blood Count 7.2 K/mm3 (4.4-11.0)
[2023-07-19 19:18] LABS: ALB/GLOB Ratio 0.9 RATIO (0.9-2.4); AST(SGOT) 19 U/L (15-37); Alanine Aminotransfer ALT/SGPT 28 U/L (13-56); Albumin, Serum 3.3 g/dL (3.2-5.0); Alkaline Phosphatase 68 U/L (45-117); Anion Gap 7 (5-15); BUN 7 mg/dL (7-18); BUN/Creat Ratio 10.4 RATIO (10-20); Calcium,Total 8.4 mg/dL (8.5-10.1); Chloride 106 mmol/L (98-107); Creatinine, Serum 0.68 mg/dL (0.55-1.02); EST Glomerular Filtration Rate 100 mL/min (>60); Est Glom Filt Rate - Afr Amer 121 mL/min (>60); Globulin 3.6 g/dL (2.2-4.2); Glucose 123 mg/dL (74-106); Magnesium 1.6 mg/dL (1.6-2.6); Phosphorus 3.1 mg/dL (2.5-4.9); Potassium 3.5 mmol/L (3.5-5.1); Protein, Total 6.9 g/dL (6.4-8.2); Sodium Level 140 mmol/L (136-145); Thyroid Stim Hormone (TSH) 1.07 uIU/mL (0.358-3.74)
[2023-07-19 20:52] LABS: Vitamin B12 534 pg/mL (211-911)
== END | disposition home or self-care (01) ==
PROVIDERS: PCP Family Medicine; Referring Provider Family Medicine; Visit Provider Family Medicine
DX: R25.2 Cramp and spasm (principal); E86.0 Dehydration
CPT/HCPCS: 36415; 80053; 82607; 82746; 83735; 84100; 84443; 85025

== ENCOUNTER 2023-07-29 14:10 | Emergency (ER) | payer BC, SELFPAY ==
[2023-07-29 14:11] VITALS: BP 190/88; PULSE 107; RESP 18; TEMP 35.7; O2SAT 99; BMI 27.8
[2023-07-29 14:27] VITALS: BP 163/93; PULSE 98; RESP 20
[2023-07-29 14:31] VITALS: BP 176/83; PULSE 108; RESP 21
--- NOTE | 2023-07-29 14:33 | EKG12_ITS ---
Test Reason : CP Blood Pressure : / mmHG Vent. Rate : 098 BPM Atrial Rate : 098 BPM P-R Int : 124 ms QRS Dur : 074 ms QT Int : 336 ms P-R-T Axes : 062 044 055 degrees QTc Int : 428 ms Normal sinus rhythm Normal ECG Confirmed by JAS ALEXANDER ([id number]), photographic editor MADALYN MIRZA ([id number]) on 08/12/2023 10:54:04 AM Referred By: POOJA/RONALD Confirmed By:JAS ALEXANDER
--- NOTE | 2023-07-29 14:34 | EDS_ITS ---
HPI History of Present Illness Chief Complaint: Chest Pain Informant: patient Onset/Context/Timing Onset: Today Narrative Narrative: Patient presents with chest pressure along with nausea and vomiting that started at 11 AM this morning. She does report some diarrhea as well. No fever or chills. She is a chronic cough that is unchanged from baseline. Patient reported did have an NSTEMI in October of last year. She states she had a cardiac cath at that time that did not show any disease. [facility] Medical History Acute lumbar myofascial strain Alcohol abuse Anxiety COPD (chronic obstructive pulmonary disease) CPAP (continuous positive airway pressure) dependence Depression Diabetes GERD (gastroesophageal reflux disease) History of left heart catheterization (LHC) (~11/19/22) HTN (hypertension) Myocardial infarct Pancreatitis Seizures Sleep apnea Smoker Strain of left hip Type 2 diabetes mellitus Home Medications metformin 500 mg tablet 500 ea PO BID DIABETES 10/31/22 [History Last Taken 11/17/22 21:30] aspirin 81 mg chewable tablet 81 mg PO DAILY@0800 #30 tabs 11/19/22 [Rx Last Taken Unknown] bupropion HCl 150 mg 24 hr tablet, extended release 150 mg PO DAILY 01/21/23 [History Last Taken Unknown] empagliflozin 10 mg tablet (Jardiance) 10 mg PO DAILY 01/21/23 [History Last Taken Unknown] albuterol sulfate 90 mcg/actuation aerosol inhaler 2 puff inhalation Q6H PRN shortness of breath or wheezing #8.5 grams 02/12/23 [Rx Last Taken Unknown] citalopram 20 mg tablet 20 mg PO DAILY 03/22/23 [History Last Taken Unknown] budesonide-formoterol HFA 80 mcg-4.5 mcg/actuation aerosol inhaler (Symbicort) 1 puff inhalation BID 04/09/23 [History Last Taken Unknown] levocetirizine 5 mg tablet 5 mg PO DAILY 04/09/23 [History Last Taken Unknown] montelukast 10 mg tablet (Singulair) 10 mg PO DAILY 04/09/23 [History Last Taken Unknown] pantoprazole 40 mg tablet,delayed release 40 mg PO BID 05/04/23 [History Last Taken Unknown] metoprolol succinate 50 mg tablet,extended release 24 hr 25 mg PO DAILY BLOOD PRESSURE 05/20/23 [History Last Taken Unknown] dextromethorphan-guaifenesin 10 mg-100 mg/5 mL oral liquid 10 ml PO Q4H PRN cough #500 mL 07/01/23 [Rx Last Taken Unknown] lisinopril 10 mg tablet 5 mg (1/2 x 10 mg) PO DAILY BLOOD PRESSURE #30 tabs 07/23/23 [Rx Last Taken Unknown] ondansetron 4 mg disintegrating tablet 4 mg PO Q8H PRN PRN Nausea #10 tabs 07/29/23 [Rx Last Taken Unknown] oxycodone-acetaminophen 5 mg-325 mg tablet (Percocet) 1 tab PO Q8H PRN pain 3 days #10 tabs 07/29/23 [Rx Last Taken Unknown] Allergy/AdvReac Type Severity Reaction Status Date / Time No Known Allergies Allergy Verified 07/29/23 14:11 Family History Grandfather CVA (cerebral vascular accident) Diabetes Mother Cancer Father Hypertension Grandmother Hypertension Diabetes Surgical History H/O tooth extraction History of cholecystectomy plantar fasciitis release Social History household members: spouse and children housing: house pets and animals: Yes Smoking Status: Current every day smoker tobacco type: cigarettes alcohol intake: current alcohol intake frequency: a few times a month Alcohol type: hard liquor substance use type: does not use ROS ROS ED Constitutional Constitutional ED: Denies chills or fever(s) Eyes Eyes: Denies change in vision or discharge from eye(s) ENT ENT ED: Denies discharge from eye(s), rhinorrhea or sore throat Cardiovascular Cardiovascular: Reports chest pain; Denies palpitations Respiratory/Chest Respiratory/Chest: Reports cough Gastrointestinal Gastrointestinal: Reports abdominal pain, diarrhea, nausea and vomiting Genitourinary Genitourinary ED: Denies difficulty urinating or dysuria Musculoskeletal Musculoskeletal: Denies back pain or extremity pain Integumentary Reports rash; Denies Abrasions Neurologic Neurologic: Denies headache(s) or weakness Psychiatric Psychiatric: Denies anxiety or depression Allergic/Immunologic Allergic/Immunologic ED: Denies lip swelling or urticaria EXAM Physical Exam Const Vital Signs: 07/29/23 14:11 07/29/23 14:27 07/29/23 14:31 Temperature 96.3 F L Temperature Source Temporal Pulse Rate 107 H 98 108 H Respiratory Rate 18 20 H 21 H Blood Pressure 190/88 H 163/93 H 176/83 H Blood Pressure Mean 122 116 114 Pulse Ox 99 Oxygen Delivery Method Room Air 07/29/23 15:10 Temperature Temperature Source Pulse Rate 88 Respiratory Rate 22 H Blood Pressure Blood Pressure Mean Pulse Ox Oxygen Delivery Method Positive well nourished and well developed General Appearance ED: well developed HEENT Reports normocephalic and head/scalp atraumatic Eyes PERRL and EOMs intact bilaterally Neck supple Chest Wall inspection of chest normal and palpation of chest normal Resp normal respiratory effort and clear to auscultation bilaterally Cardio regular rhythm Rate: tachycardic GI GI Narrative: Minimal epigastric tenderness. No guarding or rebound. Mild tenderness in the right mid abdomen. Palpation: soft Narrative: Mild erythema to the perineum. Small linear abrasion noted to the right posterior labia majora. No surrounding evidence of cellulitis or infection. Extremity normal to inspection Neuro oriented x3 and no sensory deficits noted Sensorium / Orientation: alert Motor Exam: strength 5/5 throughout Psych mental status grossly normal Skin no rashes or lesions noted MDM MDM MDM Narrative Medical decision making narrative: Patient had taken 3 baby aspirin prior to arrival and was given 1 additional baby aspirin here. Patient is given morphine and Zofran for pain and nausea control. EKG obtained to evaluate for cardiac arrhythmia/ischemia. Chest x-ray obtained to evaluate for acute lung pathology, cardiac size, or mediastinal abnormality. Labwork obtained to evaluate for leukocytosis, anemia, and electrolyte derangement. History & Record Review Discussion w/independent historian: Patient and Family Lab Data Attestation: I reviewed the patient's lab results. Labs: Laboratory Results - last 24 hr 07/29/23 07/29/23 07/29/23 14:33 15:08 16:58 WBC 8.8 RBC 3.94 L Hgb 13.1 Hct 38.5 MCV 97.7 MCH 33.2 H MCHC 34.0 RDW Std Deviation 45.1 H RDW Coeff of Braxton 12.7 Plt Count 281 MPV 9.6 Immature Gran % (Auto) 0.300 Neut % (Auto) 63.7 Lymph % (Auto) 25.4 [place] % (Auto) 8.5 Eos % (Auto) 1.6 Baso % (Auto) 0.5 Absolute Neuts (auto) 5.6 Absolute Lymphs (auto) 2.24 Nucleated RBC % 0 Sodium 135 L Potassium 3.9 Chloride 102 Carbon Dioxide 26.0 Anion Gap 7 BUN 11 Creatinine 0.88 Estim Creat Clear Calc 68.98 Est GFR (MDRD) Af Amer 89 Est GFR (MDRD) Non-Af 74 BUN/Creatinine Ratio 12.5 Glucose 173 H Calcium 8.5 Total Bilirubin 0.30 Direct Bilirubin 0.08 AST 24 ALT 45 Alkaline Phosphatase 93 Troponin I High Sens 3 4 Total Protein 7.3 Albumin 3.5 Globulin 3.8 Lipase 32 Serum , Qual NEGATIVE Radiography Chest X-Ray - ED: 1 View, Read by ED Physician, Normal, Heart, Lungs and Mediastinum Diagnostic Testing: Clinical Impression(s) from Imaging Studies Chest X-Ray 07/29/23 14:55 IMPRESSION: Normal x-ray examination of the chest. Electronically Signed: Guy Roger MD at 15:15 EDT , Abdomen/Pelvis CT 07/29/23 16:20 IMPRESSION: 1. Fluid density mass in the right hemipelvis which may represent an ovarian cyst. No other acute abnormalities are identified. 2. Pancreatic calcifications which may represent chronic pancreatitis. Electronically Signed: Will Marion MD at 17:20 EDT , EKG Initial EKG: Attestation: I personally reviewed and interpreted this EKG as follows: Interpretation: Sinus Rhythm (Sinus at 98 with no acute ischemia.) Treatment and Re-Evaluation :: CBC was normal white count 8.8 with a hemoglobin of 13.1. Chemistry studies reveal a sodium of 135. Normal creatinine and potassium. Glucose is 173. LFTs and lipase are normal. Initial troponin is normal at 3. Repeat troponin is 4. On initial recheck patient reports pain starting to increase again and actually points more to the epigastrium and abdomen. She was given 0.5 mg of Dilaudid an d a CT scan of the abdomen pelvis also obtained. CT reveals a fluid mass in the right hemipelvis consistent with an ovarian cyst. Pancreatic calcifications are noted which may represent chronic pancreatitis. On final reexam patient is holding her epigastrium and complaining of pain. I believe her symptoms are consistent with a flare of her chronic pancreatitis. Right now her lipase is not elevated. She will be treated with Percocet and Zofran. She will follow a liquid diet today and then slowly advance diet. I will write her off work tomorrow. She was advised that if her symptoms worsen she is to return to the emergency room for repeat labs. She voices understanding and agreement. Discharge Plan Triage Chief Complaint: Chest Pain ED Provider: Caprice Jerry Dx/Rx/DC Orders Clinical Impression: Chronic pancreatitis, Epigastric abdominal pain Instructions: ED Pancreatitis, ED Epigastric Pain Uncertain Cause Prescriptions: New oxycodone-acetaminophen [Percocet] 5-325 mg tablet 1 tab PO Q8H PRN (Reason: pain) 3 Days Qty: 10 0RF ondansetron 4 mg tablet,disintegrating 4 mg PO Q8H PRN PRN (Reason: Nausea) Qty: 10 0RF No Action metformin 500 mg tablet 500 ea PO BID metoprolol succinate 50 mg tablet extended release 24 hr 25 mg PO DAILY albuterol sulfate 90 mcg/actuation HFA aerosol inhaler 2 puff inhalation Q6H PRN (Reason: shortness of breath or wheezing) Qty: 8.5 0RF dextromethorphan-guaifenesin 10-100 mg/5 mL liquid 10 ml PO Q4H PRN (Reason: cough) Qty: 500 0RF aspirin 81 mg Tablet,Chewable 81 mg PO DAILY@0800 Qty: 30 0RF bupropion HCl 150 mg tablet extended release 24 hr 150 mg PO DAILY Patient Comments: take 1 tablet by mouth once daily Jardiance 10 mg tablet 10 mg PO DAILY Patient Comments: take 1 tablet by mouth once daily citalopram 20 mg tablet 20 mg PO DAILY Patient Comments: take 1 tablet by mouth once daily montelukast [Singulair] 10 mg Tablet 10 mg PO DAILY levocetirizine 5 mg Tablet 5 mg PO DAILY budesonide-formoterol [Symbicort] 80-4.5 mcg/actuation Hfa Aerosol Inhaler 1 puff INHALATION BID pantoprazole 40 mg tablet,delayed release (DR/EC) 40 mg PO BID lisinopril 10 mg tablet 5 mg PO DAILY Qty: 30 6RF Stand Alone Forms: Work / School Excuse Primary Care Provider: Milana Garcia Referrals: Milana Garcia, [Primary Care Provider] - 1 Week Disposition Disposition: Home, Self Care
[2023-07-29] MEDS: 0.9% Normal Saline 1,000 ML 150 ML IV (14:47)
[2023-07-29] MEDS: Aspirin 81 MG TAB.CHEW 162 MG PO (14:47)
[2023-07-29] MEDS: Ondansetron 4 MG/2 ML Vial IV (14:47)
[2023-07-29] MEDS: Morphine 4 MG/ML Syringe IV (14:47)
--- NOTE | 2023-07-29 14:55 | RAD_ITS ---
STUDY: X-RAY CHEST REASON FOR EXAM: Female, 48 years old. Sternal chest pain. TECHNIQUE: Single AP portable view of the chest. COMPARISON: Comparison is made with prior study dated May 24, 2023. FINDINGS: EKG electrodes are seen. The lungs are clear and expanded. There is no demonstrated pleural abnormality. Normal size heart. Normal mediastinum and aviva. Normal visualized pulmonary arteries. Normal visualized aortic arch and descending thoracic aorta. Normal visualized thoracic spine. Normal visualized ribs, clavicles, and shoulders. There is no demonstrated abnormality of the visualized soft tissue structures of the upper abdomen. RAD/Chest 1 View (Portable) IMPRESSION: Normal x-ray examination of the chest. Electronically Signed: Guy Roger MD at 15:15 EDT ,
[2023-07-29 14:59] LABS: Absolute Lymphocyte Count 2.24 X10^3/uL (0.83-4.51); Absolute Neutrophil Count 5.6 X10^3/uL (2.0-7.7); Basophil# 0.04 X10^3/uL; Basophil% 0.5 % (0-1); Eosinophil# 0.14 X10^3/uL; Eosinophils% 1.6 % (0-5); Hematocrit 38.5 % (37-47); Hemoglobin 13.1 g/dL (12.0-15.0); Lymphocyte # 2.24 X10^3/ul (0.83-4.51); Lymphocyte % 25.4 % (19-41); Mean Corpuscular Hgb 33.2 pg (27.0-32.0); Mean Corpuscular Volume 97.7 fL (81-99); Mean Platelet Vol. 9.6 fl (6.2-12.0); Monocyte# 0.75 X10^3/uL; Monocyte% 8.5 % (0-10); NRBC Flagged by Analyzer 0 % (0-5); Neutrophil # 5.61 X10^3/uL (2.7-7.7); Neutrophil % 63.7 % (47-70); Platelet Count 281 K/mm3 (150-450); RBC Distribution Width CV 12.7 % (11.6-14.6); RBC Distribution Width SD 45.1 fl (35.1-43.9); Red Blood Count 3.94 M/mm3 (4.2-5.4); White Blood Count 8.8 K/mm3 (4.4-11.0)
[2023-07-29 15:10] VITALS: PULSE 88; RESP 22
[2023-07-29 15:19] LABS: Anion Gap 7 (5-15); BUN 11 mg/dL (7-18); BUN/Creat Ratio 12.5 RATIO (10-20); Calcium,Total 8.5 mg/dL (8.5-10.1); Chloride 102 mmol/L (98-107); Creatinine, Serum 0.88 mg/dL (0.55-1.02); EST Glomerular Filtration Rate 74 mL/min (>60); Est Glom Filt Rate - Afr Amer 89 mL/min (>60); Estimated Creatinine Clearance 68.98 ml/min; Glucose 173 mg/dL (74-106); Potassium 3.9 mmol/L (3.5-5.1); Sodium Level 135 mmol/L (136-145); Troponin-I HS (w/2H Reflex) 3 pg/mL (3.0-54.0)
[2023-07-29 15:53] LABS: Internal QC Validated? YES +Cl - CLEAR BKGD; Pregnancy, Serum, hCG Quali. NEGATIVE Negative
[2023-07-29 16:03] LABS: AST(SGOT) 24 U/L (15-37); Alanine Aminotransfer ALT/SGPT 45 U/L (13-56); Albumin, Serum 3.5 g/dL (3.2-5.0); Alkaline Phosphatase 93 U/L (45-117); Bilirubin, Direct 0.08 mg/dL (0.00-0.30); Globulin 3.8 g/dL (2.2-4.2); Lipase 32 U/L (13-75); Protein, Total 7.3 g/dL (6.4-8.2)
--- NOTE | 2023-07-29 16:20 | CT_ITS ---
EXAM: CT ABDOMEN AND PELVIS WITH INTRAVENOUS CONTRAST CLINICAL INDICATION: abd pain TECHNIQUE: Helically acquired images were obtained of the abdomen and pelvis with intravenous contrast. This CT exam was performed using one or more of the following dose reduction techniques: automated exposure control, adjustment of the mA and/or kV according to patient size, and/or use of iterative reconstruction technique. CONTRAST: IV 100mL Isovue-300 COMPARISON: 11/12/2015 FINDINGS: LOWER THORAX: Unremarkable. Lung bases are clear. No cardiomegaly. No significant pericardial effusion. ABDOMEN: LIVER: Unremarkable. Homogeneous. No focal mass. GALLBLADDER AND BILE DUCTS: There are surgical clips from a cholecystectomy. No intra- or extrahepatic biliary ductal dilation. PANCREAS: There are calcifications in the uncinate process of the pancreas which may be from chronic pancreatitis. There are no acute inflammatory changes. No focal cystic or solid mass. SPLEEN: Unremarkable. Normal size without focal cystic or solid mass. ADRENALS: Unremarkable. No nodules. KIDNEYS AND URETERS: Unremarkable. Normal renal size and position. No hydronephrosis. STOMACH AND BOWEL: Unremarkable. No stomach or bowel distention. No focal inflammatory change. PELVIS: APPENDIX: No evidence of acute appendicitis. BLADDER: Unremarkable. REPRODUCTIVE: There is a fluid density mass right hemipelvis that measures 1.8 x 1.5 cm which may represent a right ovarian cyst. ABDOMEN and PELVIS: INTRAPERITONEAL SPACE: Unremarkable. No ascites or other fluid collection. No free air. BONES/JOINTS: Unremarkable. No suspicious lytic or blastic abnormality. SOFT TISSUES: Unremarkable. No discrete abdominal or pelvic wall hernia. VASCULATURE: Unremarkable. Abdominal aorta is non-dilated. LYMPH NODES: Unremarkable. No enlarged lymph nodes. CT/Abdomen/Pelvis W IV Cont ONLY IMPRESSION: 1. Fluid density mass in the right hemipelvis which may represent an ovarian cyst. No other acute abnormalities are identified. 2. Pancreatic calcifications which may represent chronic pancreatitis. Electronically Signed: Will Marion MD at 17:20 EDT ,
[2023-07-29] MEDS: Dicyclomine 20 MG/2 ML Vial IM (16:30)
[2023-07-29] MEDS: HYDROmorphone 1 MG/ML Syringe 0.5 MG IV (16:31)
[2023-07-29 16:45] LABS: Reflex Troponin-HS? (from REC) Y
[2023-07-29 17:20] LABS: Troponin-I HS 4 pg/mL (3.0-54.0)
[2023-07-29 17:56] VITALS: BP 117/74; PULSE 73; RESP 15; O2SAT 100; O2SAT 98
== END 2023-07-29 17:57 | disposition home or self-care (01) ==
PROVIDERS: Emergency Provider Emergency Medicine; PCP Family Medicine; Visit Provider Emergency Medicine
DX: R10.13 Epigastric pain (principal); J44.9 Chronic obstructive pulmonary disease, unspecified; K86.1 Other chronic pancreatitis; E11.9 Type 2 diabetes mellitus without complications; I10 Essential (primary) hypertension; F17.210 Nicotine dependence, cigarettes, uncomplicated; Z79.84 Long term (current) use of oral hypoglycemic drugs; Z79.82 Long term (current) use of aspirin; Z79.899 Other long term (current) drug therapy; F32.A Depression, unspecified; Z99.89 Dependence on other enabling machines and devices; I25.2 Old myocardial infarction; Z79.51 Long term (current) use of inhaled steroids; K21.9 Gastro-esophageal reflux disease without esophagitis; Z90.49 Acquired absence of other specified parts of digestive tract; R11.2 Nausea with vomiting, unspecified
CPT/HCPCS: 71045; 74177; 80048; 80076; 83690; 84484; 84703; 85025; 93005; 96361; 96372; 96374; 96375; 99283; J7030; Q9967; A4216; J2405

== ENCOUNTER 2023-08-23 11:43 | Emergency (ER) | payer BC, SELFPAY ==
[2023-08-23 11:44] VITALS: BP 202/97; PULSE 104; RESP 14; TEMP 36.4; O2SAT 98; BMI 28.3
--- NOTE | 2023-08-23 11:54 | CT_ITS ---
STUDY: CT ABDOMEN AND PELVIS WITH CONTRAST REASON FOR EXAM: Female, 48 years old. Epigastric pain. Nausea and vomiting. History of pancreatitis. Alcohol abuse. RADIATION DOSAGE (If Supplied By Facility): CTDIvol = ( 11.85 ) mGy, DLP = ( 780.81 ) mGycm TECHNIQUE: Transaxial images were obtained from the dome of the diaphragm to the symphysis pubis without oral contrast. IV 100mL Isovue-300 was administered. Sagittal and coronal images were reconstructed. Individualized dose optimization techniques were used for this CT. COMPARISON: Comparison is made with prior study July 29, 2023. FINDINGS: The visualized lung bases are unremarkable. The visualized portions of the heart are within normal limits. Normal liver. There are surgical clips in the gallbladder fossa consistent with a prior cholecystectomy. Normal spleen. Focal calcifications are seen in the head of the pancreas suggestive of changes compatible with chronic pancreatitis. Normal bilateral adrenal glands. Normal right kidney. Normal left kidney. Normal visualized stomach. Normal small intestine. Normal colon. The appendix is visualized and appears normal. There is scattered atherosclerotic calcification of the abdominal aorta, without a demonstrated aneurysm. Normal inferior vena cava. Normal retroperitoneum. Normal urinary bladder. Small follicles are seen in both ovaries. Normal abdominal wall. Normal osseous structures. CT/Abdomen/Pelvis W IV Cont ONLY IMPRESSION: Focal calcifications in the head of the pancreas suggestive of changes compatible with chronic pancreatitis. Status post cholecystectomy. Electronically Signed: Guy Roger MD at 13:28 EDT ,
--- NOTE | 2023-08-23 12:03 | EX.ED.DYSGE1 ---
HPI <LUIS Da Silva - Last Filed: 08/23/23 18:07> History of Present Illness Chief Complaint: Nausea/Vomiting Narrative Narrative: Patient presenting due to epigastric abdominal pain that radiates to her back, nausea, and vomiting that started this morning. She reports a history of chronic pancreatitis and thinks this pain feels similar. She reports that she had a few episodes of loose stool yesterday without any melena or hematochezia. Past abdominal surgeries include cholecystectomy. She denies any fever, chills, chest pain, shortness of breath, and urinary symptoms. PMH includes chronic pancreatitis, CAD, hypertension, and hyperlipidemia. PFSH <LUIS Da Silva - Last Filed: 08/23/23 18:07> PFSH Medical History Acute lumbar myofascial strain Alcohol abuse Anxiety COPD (chronic obstructive pulmonary disease) CPAP (continuous positive airway pressure) dependence Depression Diabetes GERD (gastroesophageal reflux disease) History of left heart catheterization (LHC) (~11/19/22) HTN (hypertension) Myocardial infarct Pancreatitis Seizures Sleep apnea Smoker Strain of left hip Type 2 diabetes mellitus Home Medications metformin 500 mg tablet 500 ea PO BID DIABETES 10/31/22 [History Last Taken 11/17/22 21:30] aspirin 81 mg chewable tablet 81 mg PO DAILY@0800 #30 tabs 11/19/22 [Rx Last Taken Unknown] bupropion HCl 150 mg 24 hr tablet, extended release 150 mg PO DAILY 01/21/23 [History Last Taken Unknown] empagliflozin 10 mg tablet (Jardiance) 10 mg PO DAILY 01/21/23 [History Last Taken Unknown] albuterol sulfate 90 mcg/actuation aerosol inhaler 2 puff inhalation Q6H PRN shortness of breath or wheezing #8.5 grams 02/12/23 [Rx Last Taken Unknown] citalopram 20 mg tablet 20 mg PO DAILY 03/22/23 [History Last Taken Unknown] budesonide-formoterol HFA 80 mcg-4.5 mcg/actuation aerosol inhaler (Symbicort) 1 puff inhalation BID 04/09/23 [History Last Taken Unknown] levocetirizine 5 mg tablet 5 mg PO DAILY 04/09/23 [History Last Taken Unknown] montelukast 10 mg tablet (Singulair) 10 mg PO DAILY 04/09/23 [History Last Taken Unknown] pantoprazole 40 mg tablet,delayed release 40 mg PO BID 05/04/23 [History Last Taken Unknown] metoprolol succinate 50 mg tablet,extended release 24 hr 25 mg PO DAILY BLOOD PRESSURE 05/20/23 [History Last Taken Unknown] dextromethorphan-guaifenesin 10 mg-100 mg/5 mL oral liquid 10 ml PO Q4H PRN cough #500 mL 07/01/23 [Rx Last Taken Unknown] lisinopril 10 mg tablet 5 mg (1/2 x 10 mg) PO DAILY BLOOD PRESSURE #30 tabs 07/23/23 [Rx Last Taken Unknown] ondansetron 4 mg disintegrating tablet 4 mg PO Q8H PRN PRN Nausea #10 tabs 07/29/23 [Rx Last Taken Unknown] oxycodone-acetaminophen 5 mg-325 mg tablet (Percocet) 1 tab PO Q8H PRN pain 3 days #10 tabs 07/29/23 [Rx Last Taken Unknown] ondansetron 4 mg disintegrating tablet 4 mg PO Q8H PRN PRN Nausea #10 tabs 08/23/23 [Rx Last Taken Unknown] oxycodone-acetaminophen 5 mg-325 mg tablet (Percocet) 1 tab PO Q6H PRN pain 3 days #12 tabs 08/23/23 [Rx Last Taken Unknown] Allergy/AdvReac Type Severity Reaction Status Date / Time No Known Allergies Allergy Verified 08/23/23 11:44 Family History Grandfather CVA (cerebral vascular accident) Diabetes Mother Cancer Father Hypertension Grandmother Hypertension Diabetes Surgical History H/O tooth extraction History of cholecystectomy plantar fasciitis release Social History household members: spouse and children housing: house pets and animals: Yes Smoking Status: Current every day smoker tobacco type: cigarettes alcohol intake: current alcohol intake frequency: a few times a month Alcohol type: hard liquor substance use type: does not use ROS <LUIS Da Silva - Last Filed: 08/23/23 18:07> ROS ED Constitutional Constitutional ED: Denies chills or fever(s) Cardiovascular Cardiovascular: Denies chest pain or palpitations Respiratory/Chest Respiratory/Chest: Denies cough or dyspnea Gastrointestinal Gastrointestinal: Reports abdominal pain, diarrhea, nausea and vomiting; Denies constipation Genitourinary Genitourinary ED: Denies dysuria, hematuria or urinary urgency Musculoskeletal Musculoskeletal: Reports back pain; Denies arthralgias or myalgias Integumentary Denies rash Neurologic Neurologic: Denies weakness EXAM <LUIS Da Silva - Last Filed: 08/23/23 18:07> Physical Exam Const Vital Signs: 08/23/23 11:44 08/23/23 14:08 08/23/23 15:04 Temperature 97.6 F L 97.6 F L Temperature Source Temporal Pulse Rate 104 H 68 78 Respiratory Rate 14 16 14 Blood Pressure 202/97 H 156/80 H 124/78 H Blood Pressure Mean 132 105 Pulse Ox 98 98 99 Oxygen Delivery Method Room Air Room Air Positive well nourished, well developed and no apparent distress General Appearance ED: well developed HEENT Reports normocephalic and head/scalp atraumatic Mouth ED: Yes moist mucous membranes normal Eyes PERRL and EOMs intact bilaterally Neck full ROM and supple Chest Wall inspection of chest normal Resp normal respiratory effort and clear to auscultation bilaterally Cardio regular rate and regular rhythm GI soft to palpation, non-distended and no masses GI Narrative: Epigastric and right upper quadrant tenderness to palpation without any rigidity or guarding. Back/Spine normal ROM and normal to inspection Extremity normal to inspection and full ROM Neuro oriented x3, CN's II-XII intact bilaterally, moves all extremities, no focal motor deficits and no sensory deficits noted Sensorium / Orientation: awake and alert Psych mental status grossly normal and thought process normal Skin no rashes or lesions noted and no wounds <Rober Concepcion MD - Last Filed: 08/24/23 07:08> Physical Exam Const Vital Signs: 08/23/23 11:44 08/23/23 14:08 08/23/23 15:04 Temperature 97.6 F L 97.6 F L Temperature Source Temporal Pulse Rate 104 H 68 78 Respiratory Rate 14 16 14 Blood Pressure 202/97 H 156/80 H 124/78 H Blood Pressure Mean 132 105 Pulse Ox 98 98 99 Oxygen Delivery Method Room Air Room Air [facility] <LUIS Da Silva - Last Filed: 08/23/23 18:07> [facility] Narrative Medical decision making narrative: Patient presenting due to epigastric abdominal pain that started this morning. She does report a history of chronic pancreatitis and thinks that this pain feels similar. She reports that she initially had this 12 years ago but did have a flareup about a month ago. She does see a GI doctor who just performed a scope and biopsy of her pancreas. They are working to get her into see pain management. Initially, she is hypertensive and slightly tachycardic, she appears uncomfortable. She will be given pain and nausea control. Labs will be obtained to rule out leukocytosis, anemia, electrolyte abnormality, hepatobiliary etiology, UTI, and pancreatitis. CT of the abdomen and pelvis will be obtained to rule out pancreatitis and other abdominal etiology. Lab overall are unremarkable. CT showed changes compatible with chronic pancreatitis. She was given multiple rounds of pain control here in the ED. I also checked an EKG and troponin on her given her cardiac history, troponin is WNL and EKG is sinus tachycardia without any signs of cardiac ischemia or ST elevation. I will give her a short course of Percocet for home as well as Zofran. She is to follow-up with her GI doctor. She has been given return instructions and will be discharged home in stable condition. She is comfortable with plan. Lab Data Attestation: I reviewed the patient's lab results. Labs: Laboratory Results - last 24 hr 08/23/23 12:05 WBC 10.8 RBC 4.30 Hgb 14.0 Hct 42.1 MCV 97.9 MCH 32.6 H MCHC 33.3 RDW Std Deviation 45.9 H RDW Coeff of Braxton 12.8 Plt Count 264 MPV 9.6 Immature Gran % (Auto) 0.500 Neut % (Auto) 69.4 Lymph % (Auto) 21.3 Kane % (Auto) 6.7 Eos % (Auto) 1.6 Baso % (Auto) 0.5 Absolute Neuts (auto) 7.5 Absolute Lymphs (auto) 2.29 Nucleated RBC % 0 Sodium 135 L Potassium 4.3 Chloride 103 Carbon Dioxide 24.0 Anion Gap 8 BUN 10 Creatinine 1.05 H Estim Creat Clear Calc 57.81 Est GFR (MDRD) Af Amer 72 Est GFR (MDRD) Non-Af 60 BUN/Creatinine Ratio 9.5 L Glucose 205 H Calcium 8.8 Total Bilirubin 0.30 AST 18 ALT 26 Alkaline Phosphatase 69 Troponin I High Sens 3 Total Protein 7.8 Albumin 3.6 Globulin 4.2 Albumin/Globulin Ratio 0.9 Lipase 41 Urine Color Yellow Urine Clarity Clear Urine pH 6.0 Ur Specific [place] 1.010 Urine Protein Negative Urine Glucose (UA) 1000 H Urine Ketones Negative Urine Occult Blood Negative Urine Nitrite Negative Urine Bilirubin Negative Urine Urobilinogen Normal Ur Leukocyte Esterase Negative Urine RBC 0 SEEN Urine WBC 0 SEEN Ur Squamous Epith Cells 0-5 SEEN Urine Bacteria 0 SEEN Urine Mucus 0 SEEN Radiography Diagnostic Testing: Clinical Impression(s) from Imaging Studies Abdomen/Pelvis CT 08/23/23 11:54 IMPRESSION: Focal calcifications in the head of the pancreas suggestive of changes compatible with chronic pancreatitis. Status post cholecystectomy. Electronically Signed: Guy Roger MD at 13:28 EDT , EKG Initial EKG: Comments: 112 bpm, sinus tachycardia, no ST elevation, reviewed and interpreted by attending ED physician <Rober Concepcion MD - Last Filed: 08/24/23 07:08> [facility] Narrative Medical decision making narrative: Patient presenting due to epigastric abdominal pain that started this morning. She does report a history of chronic pancreatitis and thinks that this pain feels similar. She reports that she initially had this 12 years ago but did have a flareup about a month ago. She does see a GI doctor who just performed a scope and biopsy of her pancreas. They are working to get her into see pain management. Initially, she is hypertensive and slightly tachycardic, she appears uncomfortable. She will be given pain and nausea control. Labs will be obtained to rule out leukocytosis, anemia, electrolyte abnormality, hepatobiliary etiology, UTI, and pancreatitis. CT of the abdomen and pelvis will be obtained to rule out pancreatitis and other abdominal etiology. Lab overall are unremarkable. CT showed changes compatible with chronic pancreatitis. She was given multiple rounds of pain control here in the ED. I also checked an EKG and troponin on her given her cardiac history, troponin is WNL and EKG is sinus tachycardia without any signs of cardiac ischemia or ST elevation. I will give her a short course of Percocet for home as well as Zofran. She is to follow-up with her GI doctor. She has been given return instructions and will be discharged home in stable condition. She is comfortable with plan. Dr. Concepcion: I have personally performed a face to face assessment of the patient and have reviewed the ADAM Note. I performed a substantive portion of the visit including all aspects of the following. My barrett findings include: History is epigastric pain history of cholecystectomy and chronic pancreatitis. Exam is afebrile. Vital signs noted. Regular rate and rhythm. Lungs clear to auscultation bilaterally. Abdomen soft with mild epigastric tenderness, no rebound or guarding. Medical Decision Making: Check labs. Check CT scan. I reviewed the radiology report which shows calcifications of the pancreas consistent with chronic pancreatitis. I reviewed her laboratory work and she does not have an elevation in lipase. She will receive analgesia and follow-up with her microbiology analyst, Dr. Wesley, as patient states she has been worked up for pancreatitis and may be referred to pain management. Disposition is discharged home in stable condition. Other additions or changes: [None] Lab Data Labs: Laboratory Results - last 24 hr 08/23/23 12:05 WBC 10.8 RBC 4.30 Hgb 14.0 Hct 42.1 MCV 97.9 MCH 32.6 H MCHC 33.3 RDW Std Deviation 45.9 H RDW Coeff of Braxton 12.8 Plt Count 264 MPV 9.6 Immature Gran % (Auto) 0.500 Neut % (Auto) 69.4 Lymph % (Auto) 21.3 Kane % (Auto) 6.7 Eos % (Auto) 1.6 Baso % (Auto) 0.5 Absolute Neuts (auto) 7.5 Absolute Lymphs (auto) 2.29 Nucleated RBC % 0 Sodium 135 L Potassium 4.3 Chloride 103 Carbon Dioxide 24.0 Anion Gap 8 BUN 10 Creatinine 1.05 H Estim Creat Clear Calc 57.81 Est GFR (MDRD) Af Amer 72 Est GFR (MDRD) Non-Af 60 BUN/Creatinine Ratio 9.5 L Glucose 205 H Calcium 8.8 Total Bilirubin 0.30 AST 18 ALT 26 Alkaline Phosphatase 69 Troponin I High Sens 3 Total Protein 7.8 Albumin 3.6 Globulin 4.2 Albumin/Globulin Ratio 0.9 Lipase 41 Urine Color Yellow Urine Clarity Clear Urine pH 6.0 Ur Specific [place] 1.010 Urine Protein Negative Urine Glucose (UA) 1000 H Urine Ketones Negative Urine Occult Blood Negative Urine Nitrite Negative Urine Bilirubin Negative Urine Urobilinogen Normal Ur Leukocyte Esterase Negative Urine RBC 0 SEEN Urine WBC 0 SEEN Ur Squamous Epith Cells 0-5 SEEN Urine Bacteria 0 SEEN Urine Mucus 0 SEEN Radiography Diagnostic Testing: Clinical Impression(s) from Imaging Studies Abdomen/Pelvis CT 08/23/23 11:54 IMPRESSION: Focal calcifications in the head of the pancreas suggestive of changes compatible with chronic pancreatitis. Status post cholecystectomy. Electronically Signed: Guy Roger MD at 13:28 EDT , Discharge Plan Triage Chief Complaint: Nausea/Vomiting ED Midlevel Provider: Jennifer Davila ED Provider: Rober Concepcion Dx/Rx/DC Orders Clinical Impression: Chronic pancreatitis, Epigastric abdominal pain Instructions: Pancreatitis Chronic Dc Prescriptions: New oxycodone-acetaminophen [Percocet] 5-325 mg tablet 1 tab PO Q6H PRN (Reason: pain) 3 Days Qty: 12 0RF ondansetron 4 mg tablet,disintegrating 4 mg PO Q8H PRN PRN (Reason: Nausea) Qty: 10 0RF No Action metformin 500 mg tablet 500 ea PO BID metoprolol succinate 50 mg tablet extended release 24 hr 25 mg PO DAILY albuterol sulfate 90 mcg/actuation HFA aerosol inhaler 2 puff inhalation Q6H PRN (Reason: shortness of breath or wheezing) Qty: 8.5 0RF dextromethorphan-guaifenesin 10-100 mg/5 mL liquid 10 ml PO Q4H PRN (Reason: cough) Qty: 500 0RF aspirin 81 mg Tablet,Chewable 81 mg PO DAILY@0800 Qty: 30 0RF bupropion HCl 150 mg tablet extended release 24 hr 150 mg PO DAILY Patient Comments: take 1 tablet by mouth once daily Jardiance 10 mg tablet 10 mg PO DAILY Patient Comments: take 1 tablet by mouth once daily citalopram 20 mg tablet 20 mg PO DAILY Patient Comments: take 1 tablet by mouth once daily montelukast [Singulair] 10 mg Tablet 10 mg PO DAILY levocetirizine 5 mg Tablet 5 mg PO DAILY budesonide-formoterol [Symbicort] 80-4.5 mcg/actuation Hfa Aerosol Inhaler 1 puff INHALATION BID pantoprazole 40 mg tablet,delayed release (DR/EC) 40 mg PO BID oxycodone-acetaminophen [Percocet] 5-325 mg tablet 1 tab PO Q8H PRN (Reason: pain) 3 Days Qty: 10 0RF ondansetron 4 mg tablet,disintegrating 4 mg PO Q8H PRN PRN (Reason: Nausea) Qty: 10 0RF lisinopril 10 mg tablet 5 mg PO DAILY Qty: 30 6RF Stand Alone Forms: ED Work / School Excuse Primary Care Provider: Milana Garcia Referrals: Milana Garcia, [Primary Care Provider] - 3-5 Days Activity Restrictions/Additional Instructions: Please follow-up with your PCP and pain management. Return for worsening of symptoms. Disposition Disposition: Home, Self Care Discharge Date/Time: 08/23/23 15:05
[2023-08-23] MEDS: Morphine 4 MG/ML Syringe IV ×2 (12:13→13:42)
[2023-08-23] MEDS: Ondansetron 4 MG/2 ML Vial IV (12:13)
[2023-08-23 12:16] LABS: Bacteria 0 SEEN /hpf (None Seen); Mucous, Urine 0 SEEN /hpf (<or=2+); Red Blood Cells-Urine 0 SEEN /hpf (0-5); White Blood Cells 0 SEEN /hpf (0-5)
[2023-08-23 12:17] LABS: Color, Urine Yellow (Yellow); Glucose, Dipstick 1000 mg/dl (Normal); Ketone-Dipstick Negative (Negative); Leukocyte Esterase-Dipstick Negative /ul (Negative); Nitrite-Dipstick Negative (Negative); Occult Blood-Urine Negative /ul (Negative); Protein-Dipstick Negative (Negative); Urine Bilirubin Dipstick Negative (Negative); Urine Clarity Clear (Clear); Urine Urobilinogen Normal (Normal)
[2023-08-23 12:19] LABS: Absolute Lymphocyte Count 2.29 X10^3/uL (0.83-4.51); Absolute Neutrophil Count 7.5 X10^3/uL (2.0-7.7); Basophil# 0.05 X10^3/uL; Basophil% 0.5 % (0-1); Eosinophil# 0.17 X10^3/uL; Eosinophils% 1.6 % (0-5); Hematocrit 42.1 % (37-47); Lymphocyte # 2.29 X10^3/ul (0.83-4.51); Lymphocyte % 21.3 % (19-41); Mean Corp Hgb Conc 33.3 g/dL (32-36); Mean Corpuscular Hgb 32.6 pg (27.0-32.0); Mean Corpuscular Volume 97.9 fL (81-99); Mean Platelet Vol. 9.6 fl (6.2-12.0); Monocyte# 0.72 X10^3/uL; Monocyte% 6.7 % (0-10); NRBC Flagged by Analyzer 0 % (0-5); Neutrophil # 7.49 X10^3/uL (2.7-7.7); Neutrophil % 69.4 % (47-70); Platelet Count 264 K/mm3 (150-450); RBC Distribution Width CV 12.8 % (11.6-14.6); RBC Distribution Width SD 45.9 fl (35.1-43.9); White Blood Count 10.8 K/mm3 (4.4-11.0)
[2023-08-23 12:22] LABS: Squamous Epithelial Cells - UA 0-5 SEEN /hpf (5-10)
[2023-08-23 12:39] LABS: ALB/GLOB Ratio 0.9 RATIO (0.9-2.4); AST(SGOT) 18 U/L (15-37); Alanine Aminotransfer ALT/SGPT 26 U/L (13-56); Albumin, Serum 3.6 g/dL (3.2-5.0); Alkaline Phosphatase 69 U/L (45-117); Anion Gap 8 (5-15); BUN 10 mg/dL (7-18); BUN/Creat Ratio 9.5 RATIO (10-20); Calcium,Total 8.8 mg/dL (8.5-10.1); Chloride 103 mmol/L (98-107); Creatinine, Serum 1.05 mg/dL (0.55-1.02); EST Glomerular Filtration Rate 60 mL/min (>60); Est Glom Filt Rate - Afr Amer 72 mL/min (>60); Estimated Creatinine Clearance 57.81 ml/min; Globulin 4.2 g/dL (2.2-4.2); Glucose 205 mg/dL (74-106); Lipase 41 U/L (13-75); Potassium 4.3 mmol/L (3.5-5.1); Protein, Total 7.8 g/dL (6.4-8.2); Sodium Level 135 mmol/L (136-145)
[2023-08-23 14:02] LABS: Troponin-I HS 3 pg/mL (3.0-54.0)
[2023-08-23 14:08] VITALS: BP 156/80; PULSE 68; RESP 16; O2SAT 98
[2023-08-23] MEDS: HYDROmorphone 0.5 MG/0.5 ML SYRINGE IV (14:58)
[2023-08-23 15:04] VITALS: BP 124/78; PULSE 78; RESP 14; TEMP 36.4; O2SAT 99
== END 2023-08-23 15:05 | disposition home or self-care (01) ==
PROVIDERS: Physician Assistant; Emergency Provider Emergency Medicine; PCP Family Medicine; Visit Provider Emergency Medicine
DX: K86.1 Other chronic pancreatitis (principal); J44.9 Chronic obstructive pulmonary disease, unspecified; E11.9 Type 2 diabetes mellitus without complications; R10.13 Epigastric pain; E78.5 Hyperlipidemia, unspecified; R11.2 Nausea with vomiting, unspecified; F17.210 Nicotine dependence, cigarettes, uncomplicated; I25.10 Atherosclerotic heart disease of native coronary artery without angina pectoris; I10 Essential (primary) hypertension; Z90.49 Acquired absence of other specified parts of digestive tract; Z99.89 Dependence on other enabling machines and devices; I25.2 Old myocardial infarction; Z79.84 Long term (current) use of oral hypoglycemic drugs; Z79.82 Long term (current) use of aspirin; Z79.899 Other long term (current) drug therapy; F32.A Depression, unspecified; Z79.51 Long term (current) use of inhaled steroids; K21.9 Gastro-esophageal reflux disease without esophagitis
CPT/HCPCS: 74177; 80053; 81001; 83690; 84484; 85025; 93005; 96374; 96375; 96376; 99283; Q9967; A4216; J2405

== ENCOUNTER → 2023-08-25 | Outpatient (CLI) | payer BC, SELFPAY ==
[2023-08-25 18:45] LABS: AST(SGOT) 43 U/L (15-37); Alanine Aminotransfer ALT/SGPT 88 U/L (13-56); Albumin, Serum 3.5 g/dL (3.2-5.0); Alkaline Phosphatase 97 U/L (45-117); Cholesterol 224 mg/dL (200); Globulin 3.7 g/dL (2.2-4.2); High Density Lipoprotein 61 mg/dL; Lipase 53 U/L (13-75); Protein, Total 7.2 g/dL (6.4-8.2); Triglycerides 405 mg/dL
== END | disposition home or self-care (01) ==
LOC: MTLAB 14:35
PROVIDERS: Nurse Practitioner Gerontology; PCP Family Medicine; Referring Provider Internal Medicine Gastroenterology; Visit Provider Internal Medicine Gastroenterology
DX: R10.9 Unspecified abdominal pain (principal); R19.7 Diarrhea, unspecified; E78.1 Pure hyperglyceridemia
CPT/HCPCS: 36415; 80061; 80076; 83690

== ENCOUNTER 2023-10-10 15:23 | Emergency (ER) | payer BC, SELFPAY ==
[2023-10-10 15:25] VITALS: BP 111/63; PULSE 104; RESP 18; TEMP 36.9; O2SAT 97; BMI 26.3
--- NOTE | 2023-10-10 15:59 | EKG12_ITS ---
Test Reason : ILLNESS Blood Pressure : / mmHG Vent. Rate : 086 BPM Atrial Rate : 086 BPM P-R Int : 124 ms QRS Dur : 074 ms QT Int : 388 ms P-R-T Axes : 063 074 080 degrees QTc Int : 464 ms Poor data quality, interpretation may be adversely affected Normal sinus rhythm Normal ECG Confirmed by STEFFANY LEBLANC, IFRAH ([id number]), copy editor JAVID JAMES ([id number]) on 10/19/2023 2:10:40 PM Referred By: Confirmed By:IFRAH JETER MD
--- NOTE | 2023-10-10 16:01 | EX.ED.DYSGE1 ---
HPI History of Present Illness Chief Complaint: Nausea/Vomiting/Diarrhea Informant: patient Narrative Narrative: Patient presents with multiple complaints. She reports having URI symptoms for the past couple of weeks. She was seen in urgent care and given Augmentin. When this did not improve she was given clindamycin and most recently was given Medrol Dosepak and nasal spray which she just picked up today. She states that she has been nauseated the past couple days. This morning she became nauseated and vomited. At work she became lightheaded and dizzy and felt as if she may pass out. Her blood pressure at the time was around 90 systolic. She has had sweats today but did not measure her temperature. Her significant other recently had COVID. Patient states she tested for COVID last week and was negative at that time. [facility] Medical History Acute lumbar myofascial strain Acute otitis media, right Alcohol abuse Anxiety Contact with or exposure to other viral diseases COPD (chronic obstructive pulmonary disease) CPAP (continuous positive airway pressure) dependence Depression Diabetes GERD (gastroesophageal reflux disease) History of left heart catheterization (LHC) (~11/19/22) HTN (hypertension) Myocardial infarct Pancreatitis Seizures Sleep apnea Smoker Strain of left hip Type 2 diabetes mellitus URI (upper respiratory infection) Home Medications metformin 500 mg tablet 500 ea PO BID DIABETES 10/31/22 [History Last Taken 11/17/22 21:30] aspirin 81 mg chewable tablet 81 mg PO DAILY@0800 #30 tabs 11/19/22 [Rx Last Taken Unknown] bupropion HCl 150 mg 24 hr tablet, extended release 150 mg PO DAILY 01/21/23 [History Last Taken Unknown] empagliflozin 10 mg tablet (Jardiance) 10 mg PO DAILY 01/21/23 [History Last Taken Unknown] albuterol sulfate 90 mcg/actuation aerosol inhaler 2 puff inhalation Q6H PRN shortness of breath or wheezing #8.5 grams 02/12/23 [Rx Last Taken Unknown] citalopram 20 mg tablet 20 mg PO DAILY 03/22/23 [History Last Taken Unknown] budesonide-formoterol HFA 80 mcg-4.5 mcg/actuation aerosol inhaler (Symbicort) 1 puff inhalation BID 04/09/23 [History Last Taken Unknown] levocetirizine 5 mg tablet 5 mg PO DAILY 04/09/23 [History Last Taken Unknown] montelukast 10 mg tablet (Singulair) 10 mg PO DAILY 04/09/23 [History Last Taken Unknown] pantoprazole 40 mg tablet,delayed release 40 mg PO BID 05/04/23 [History Last Taken Unknown] metoprolol succinate 50 mg tablet,extended release 24 hr 25 mg PO DAILY BLOOD PRESSURE 05/20/23 [History Last Taken Unknown] lisinopril 10 mg tablet 5 mg (1/2 x 10 mg) PO DAILY BLOOD PRESSURE #30 tabs 07/23/23 [Rx Last Taken Unknown] oxycodone-acetaminophen 5 mg-325 mg tablet (Percocet) 1 tab PO Q6H PRN pain 3 days #12 tabs 08/23/23 [Rx Last Taken Unknown] cholecalciferol (vitamin D3) 50 mcg (2,000 unit) capsule 50 mcg PO DAILY 08/25/23 [History Last Taken Unknown] magnesium 250 mg tablet 250 mg PO DAILY 08/25/23 [History Last Taken Unknown] omega-3 fatty acids 1,000 mg capsule 1,000 mg PO DAILY 08/25/23 [History Last Taken Unknown] phenazopyridine 95 mg tablet 95 mg PO BID 08/25/23 [History Last Taken Unknown] atorvastatin 40 mg tablet 40 mg PO DAILY #30 tabs 08/26/23 [Rx Last Taken Unknown] clindamycin HCl 300 mg capsule 300 mg PO TID #30 caps 09/27/23 [Rx Last Taken Unknown] Allergy/AdvReac Type Severity Reaction Status Date / Time No Known Allergies Allergy Verified 10/10/23 15:25 Family History Grandfather CVA (cerebral vascular accident) Diabetes Mother Cancer Father Hypertension Grandmother Hypertension Diabetes Surgical History H/O tooth extraction History of cholecystectomy plantar fasciitis release Social History household members: spouse and children housing: house pets and animals: Yes Smoking Status: Current some day smoker tobacco type: cigarettes alcohol intake: current alcohol intake frequency: a few times a month Alcohol type: hard liquor substance use type: does not use ROS ROS ED Constitutional Constitutional ED: Reports sweats; Denies chills or fever(s) Eyes Eyes: Denies discharge from eye(s) ENT ENT ED: Denies discharge from eye(s), rhinorrhea or sore throat Cardiovascular Cardiovascular: Reports chest pain; Denies palpitations Respiratory/Chest Respiratory/Chest: Reports cough; Denies dyspnea Gastrointestinal Gastrointestinal: Reports abdominal pain, diarrhea, nausea and vomiting Genitourinary Genitourinary ED: Denies dysuria Musculoskeletal Musculoskeletal: Reports back pain; Denies extremity pain Integumentary Denies Abrasions or rash Neurologic Neurologic: Denies headache(s) or weakness Psychiatric Psychiatric: Denies anxiety or depression Allergic/Immunologic Allergic/Immunologic ED: Denies lip swelling or urticaria EXAM Physical Exam Const Vital Signs: 10/10/23 15:25 10/10/23 17:58 Temperature 98.4 F Temperature Source Temporal Pulse Rate 104 H 81 Respiratory Rate 18 16 Blood Pressure 111/63 128/68 H Blood Pressure Mean 79 88 Pulse Ox 97 97 Oxygen Delivery Method Room Air Room Air Positive well nourished and well developed General Appearance ED: well developed HEENT Reports moist mucous membranes Eyes EOMs intact bilaterally Chest Wall inspection of chest normal and palpation of chest normal Resp normal respiratory effort and clear to auscultation bilaterally Cardio regular rate and regular rhythm GI GI Narrative: Abdomen soft with mild tenderness in the epigastrium. No guarding or rebound. Extremity normal to inspection Neuro oriented x3 and no sensory deficits noted Motor Exam: strength 5/5 throughout Psych mental status grossly normal Skin no rashes or lesions noted MDM MDM MDM Narrative Medical decision making narrative: Patient placed on way inspector. IV line established. EKG obtained to evaluate for cardiac arrhythmia/ischemia. Labwork obtained to evaluate for leukocytosis, anemia, and electrolyte derangement. Chest x-ray obtained to evaluate for acute lung pathology, cardiac size, or mediastinal abnormality. Swab for COVID and flu obtained. Patient given morphine and Zofran along with IV fluids. History & Record Review Discussion w/independent historian: Patient and Family Additional record(s) reviewed:: Prior ED visit and Prior labs Lab Data Attestation: I reviewed the patient's lab results. Labs: Laboratory Results - last 24 hr 10/10/23 15:45 WBC 9.3 RBC 4.14 L Hgb 13.5 Hct 40.7 MCV 98.3 MCH 32.6 H MCHC 33.2 RDW Std Deviation 44.4 H RDW Coeff of Braxton 12.4 Plt Count 255 MPV 9.7 Immature Gran % (Auto) 0.300 Neut % (Auto) 81.6 H Lymph % (Auto) 10.6 L [place] % (Auto) 7.0 Eos % (Auto) 0.2 Baso % (Auto) 0.3 Absolute Neuts (auto) 7.6 Absolute Lymphs (auto) 0.98 Nucleated RBC % 0 D-Dimer Quant (PE/DVT) 0.45 Sodium 133 L Potassium 3.9 Chloride 103 Carbon Dioxide 22.0 Anion Gap 8 BUN 17 Creatinine 1.91 H Estim Creat Clear Calc 31.78 Est GFR (MDRD) Af Amer 36 L Est GFR (MDRD) Non-Af 30 L BUN/Creatinine Ratio 8.9 L Glucose 175 H Calcium 8.1 L Total Bilirubin 1.00 Direct Bilirubin 0.30 AST 68 H ALT 54 Alkaline Phosphatase 97 Troponin I High Sens 12 Total Protein 7.3 Albumin 3.5 Globulin 3.8 Lipase 45 Radiography Chest X-Ray - ED: 1 View, Read by ED Physician, Normal, Heart, Lungs and Mediastinum Diagnostic Testing: Clinical Impression(s) from Imaging Studies Chest X-Ray 10/10/23 16:21 IMPRESSION: No radiographic evidence of acute cardiopulmonary disease. Electronically Signed: Malachi Jones DO at 16:31 EST Reading Location ID and State: [address] [place] [address] Tel [phone], Service support , EKG Initial EKG: Attestation: I personally reviewed and interpreted this EKG as follows: Interpretation: Sinus Rhythm (Sinus 86 with no acute ischemia.) Treatment and Re-Evaluation :: CBC was normal white count 9.3 with a hemoglobin of 13.5. D-dimer is normal at 0.45 and troponin is normal at 12. Chemistry studies significant for increased creatinine of 1.91. Her glucose is 175. Portable chest x-ray per my interpretation reveals no infiltrate. COVID test is negative. EKG is sinus rhythm with no acute ischemia. Blood pressure after IV fluids has been in the 130s. She is received 1500 cc of IV fluid and will be discharged home. I encouraged her to increase fluids at home and follow-up with her doctor for repeat labs. Discharge Plan Triage Chief Complaint: Nausea/Vomiting/Diarrhea Other Complaint: Chest Pain Dizziness ED Provider: Caprice Jerry Dx/Rx/DC Orders Clinical Impression: Viral syndrome, Dehydration Instructions: ED Dehydration (Adult), ED Viral Syndrome (Adult) Prescriptions: No Action metformin 500 mg tablet 500 ea PO BID metoprolol succinate 50 mg tablet extended release 24 hr 25 mg PO DAILY albuterol sulfate 90 mcg/actuation HFA aerosol inhaler 2 puff inhalation Q6H PRN (Reason: shortness of breath or wheezing) Qty: 8.5 0RF magnesium 250 mg tablet 250 mg PO DAILY phenazopyridine 95 mg tablet 95 mg PO BID cholecalciferol (vitamin D3) 50 mcg (2,000 unit) capsule 50 mcg PO DAILY omega-3 fatty acids 1,000 mg capsule 1,000 mg PO DAILY clindamycin HCl 300 mg capsule 300 mg PO TID Qty: 30 0RF aspirin 81 mg Tablet,Chewable 81 mg PO DAILY@0800 Qty: 30 0RF bupropion HCl 150 mg tablet extended release 24 hr 150 mg PO DAILY Patient Comments: take 1 tablet by mouth once daily Jardiance 10 mg tablet 10 mg PO DAILY Patient Comments: take 1 tablet by mouth once daily citalopram 20 mg tablet 20 mg PO DAILY Patient Comments: take 1 tablet by mouth once daily montelukast [Singulair] 10 mg Tablet 10 mg PO DAILY levocetirizine 5 mg Tablet 5 mg PO DAILY budesonide-formoterol [Symbicort] 80-4.5 mcg/actuation Hfa Aerosol Inhaler 1 puff INHALATION BID pantoprazole 40 mg tablet,delayed release (DR/EC) 40 mg PO BID oxycodone-acetaminophen [Percocet] 5-325 mg tablet 1 tab PO Q6H PRN (Reason: pain) 3 Days Qty: 12 0RF lisinopril 10 mg tablet 5 mg PO DAILY Qty: 30 6RF atorvastatin 40 mg tablet 40 mg PO DAILY Qty: 30 6RF Primary Care Provider: Milana Garcia Referrals: Milana Garcia, DO [Primary Care Provider] - 1 Week Disposition Disposition: Home, Self Care
[2023-10-10] MEDS: 0.9% Normal Saline (1000mL) 1,000 ML 150 ML IV (16:11)
[2023-10-10] MEDS: Morphine 4 MG/ML Syringe IV (16:12)
[2023-10-10] MEDS: Ondansetron 4 MG/2 ML Vial IV (16:12)
[2023-10-10 16:17] LABS: Absolute Lymphocyte Count 0.98 X10^3/uL (0.83-4.51); Absolute Neutrophil Count 7.6 X10^3/uL (2.0-7.7); Basophil# 0.03 X10^3/uL; Basophil% 0.3 % (0-1); Eosinophil# 0.02 X10^3/uL; Eosinophils% 0.2 % (0-5); Hematocrit 40.7 % (37-47); Hemoglobin 13.5 g/dL (12.0-15.0); Lymphocyte # 0.98 X10^3/ul (0.83-4.51); Lymphocyte % 10.6 % (19-41); Mean Corp Hgb Conc 33.2 g/dL (32-36); Mean Corpuscular Hgb 32.6 pg (27.0-32.0); Mean Corpuscular Volume 98.3 fL (81-99); Mean Platelet Vol. 9.7 fl (6.2-12.0); Monocyte# 0.65 X10^3/uL; NRBC Flagged by Analyzer 0 % (0-5); Neutrophil # 7.56 X10^3/uL (2.7-7.7); Neutrophil % 81.6 % (47-70); Platelet Count 255 K/mm3 (150-450); RBC Distribution Width CV 12.4 % (11.6-14.6); RBC Distribution Width SD 44.4 fl (35.1-43.9); Red Blood Count 4.14 M/mm3 (4.2-5.4); White Blood Count 9.3 K/mm3 (4.4-11.0)
--- NOTE | 2023-10-10 16:21 | RAD_ITS ---
INDICATION: cp EXAMINATION/TECHNIQUE: X-RAY - XR Chest 1 View COMPARISON: July 29, 2023 FINDINGS: LINES/DEVICES: None. LUNGS: No consolidation, edema or effusion. No pneumothorax. MEDIASTINUM AND CARDIOVASCULAR STRUCTURES: Cardiac silhouette not enlarged. Central airways and mediastinal contour are unremarkable. BONES AND SOFT TISSUES: Unremarkable. RAD/Chest 1 View (Portable) IMPRESSION: No radiographic evidence of acute cardiopulmonary disease. Electronically Signed: Malachi Jones DO at 16:31 EST ,
[2023-10-10 16:30] LABS: D-Dimer Quantitative (DVT/PE) 0.45 FEU/ug/m (0.27-0.49)
[2023-10-10 16:33] LABS: AST(SGOT) 68 U/L (15-37); Alanine Aminotransfer ALT/SGPT 54 U/L (13-56); Albumin, Serum 3.5 g/dL (3.2-5.0); Alkaline Phosphatase 97 U/L (45-117); Anion Gap 8 (5-15); BUN 17 mg/dL (7-18); BUN/Creat Ratio 8.9 RATIO (10-20); Calcium,Total 8.1 mg/dL (8.5-10.1); Chloride 103 mmol/L (98-107); Creatinine, Serum 1.91 mg/dL (0.55-1.02); EST Glomerular Filtration Rate 30 mL/min (>60); Est Glom Filt Rate - Afr Amer 36 mL/min (>60); Estimated Creatinine Clearance 31.78 ml/min; Globulin 3.8 g/dL (2.2-4.2); Glucose 175 mg/dL (74-106); Lipase 45 U/L (13-75); Potassium 3.9 mmol/L (3.5-5.1); Protein, Total 7.3 g/dL (6.4-8.2); Sodium Level 133 mmol/L (136-145); Troponin-I HS (w/2H Reflex) 12 pg/mL (3.0-54.0)
[2023-10-10] MEDS: 0.9% Normal Saline (500mL Bag) 500 ML 1000 ML IV (17:00)
[2023-10-10 17:58] VITALS: BP 128/68; PULSE 81; RESP 16; O2SAT 97
[2023-10-10] MEDS: 0.9% Normal Saline (1000mL) 1,000 ML 999 ML IV (18:04)
[2023-10-10 18:09] LABS: Reflex Troponin-HS? (from REC) Y
== END 2023-10-10 18:57 | disposition home or self-care (01) ==
PROVIDERS: Emergency Provider Emergency Medicine; PCP Family Medicine; Visit Provider Emergency Medicine
DX: E86.0 Dehydration (principal); J44.9 Chronic obstructive pulmonary disease, unspecified; E11.9 Type 2 diabetes mellitus without complications; I10 Essential (primary) hypertension; F17.210 Nicotine dependence, cigarettes, uncomplicated; B34.9 Viral infection, unspecified; Z79.84 Long term (current) use of oral hypoglycemic drugs; Z79.899 Other long term (current) drug therapy; Z79.82 Long term (current) use of aspirin; F32.A Depression, unspecified; K21.9 Gastro-esophageal reflux disease without esophagitis
CPT/HCPCS: 71045; 80048; 80076; 83690; 84484; 85025; 85379; 87428; 93005; 96361; 96374; 96375; 99285; J7030; A4216; J2405

== ENCOUNTER → 2023-10-15 | Outpatient (CLI) | payer BC, SELFPAY ==
[2023-10-22 16:08] LABS: Fats, Neutral Normal (.); Fats, Total Increased (.)
[2023-10-28 13:07] LABS: Pancreatic Elastase, Fecal 330 (>200)
== END | disposition home or self-care (01) ==
LOC: MTLAB 11:54
PROVIDERS: PCP Family Medicine; Referring Provider Internal Medicine Gastroenterology; Visit Provider Internal Medicine Gastroenterology
DX: R10.9 Unspecified abdominal pain (principal); R19.7 Diarrhea, unspecified
CPT/HCPCS: 82653; 82705

== ENCOUNTER 2024-01-24 16:38 | Emergency (ER) | payer BC, SELFPAY ==
[2024-01-24 16:39] VITALS: BP 180/108; PULSE 89; RESP 18; TEMP 36.1; O2SAT 99
--- NOTE | 2024-01-24 17:17 | EKG12_ITS ---
Test Reason : CP Blood Pressure : / mmHG Vent. Rate : 087 BPM Atrial Rate : 087 BPM P-R Int : 116 ms QRS Dur : 074 ms QT Int : 350 ms P-R-T Axes : 004 051 052 degrees QTc Int : 421 ms Normal sinus rhythm Normal ECG Confirmed by SAIRA LEBLANC, YADIRA ([id number]), editor map MADALYN MIRZA ([id number]) on 01/31/2024 9:55:33 AM Referred By: Confirmed By:VINICIO CHÁVEZ MD
--- NOTE | 2024-01-24 17:27 | EDS_ITS ---
<Statement entered by Caprice Jerry MD - 01/24/24 22:08> I have personally performed a face to face assessment of the patient and have reviewed the ADAM Note. Patient presents secondary to chest pain. She had pain in the midsternal area and now points to the epigastric area described her area pain. She did eat fast food today. She does have cardiac history and has had prior cholecystectomy. Patient sitting upright in bed no acute distress. Nontoxic-appearing. Head and neck examination unremarkable. Heart regular rate and rhythm. Lung sounds are clear. Abdomen is soft with mild epigastric tenderness. No guarding or rebound. Lab work largely unremarkable. 2 troponins obtained, first less than 3 and the second 4. Patient given a GI cocktail here along with nausea medication. She has no EKG changes. I do not feel she has acute coronary syndrome does not need further workup at this time. She will continue supportive care at home. 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 At noon she developed midsternal chest pain that is constant with occasional sharp pains that last minutes in the center of her chest. Her hands and feet feel tingly. Occasionally pain will shoot down both arms. She feels mildly short of breath. She took 6 Tums and aspirin without improvement. She has a chronic smoker's cough that has not changed and smokes about 5 cigarettes a day. She states she had an NSTEMI in 2021 and a normal cardiac cat heterization. She was started on a statin and told to take baby aspirin. She has not been taking aspirin but is compliant with the rest of her medications. She has no history of DVT/PE or risk factors. [facility] Medical History Acute lumbar myofascial strain Acute otitis media, right Alcohol abuse Anxiety Contact with or exposure to other viral diseases COPD (chronic obstructive pulmonary disease) CPAP (continuous positive airway pressure) dependence Depression Diabetes GERD (gastroesophageal reflux disease) History of left heart catheterization (LHC) (~11/19/22) HTN (hypertension) Myocardial infarct Pancreatitis Seizures Sleep apnea Smoker Strain of left hip Type 2 diabetes mellitus URI (upper respiratory infection) Home Medications metformin 500 mg tablet 500 ea PO BID DIABETES 10/31/22 [History Last Taken 11/17/22 21:30] aspirin 81 mg chewable tablet 81 mg PO DAILY@0800 #30 tabs 11/19/22 [Rx Last Taken Unknown] bupropion HCl 150 mg 24 hr tablet, extended release 150 mg PO DAILY 01/21/23 [History Last Taken Unknown] empagliflozin 10 mg tablet (Jardiance) 10 mg PO DAILY 01/21/23 [History Last Taken Unknown] albuterol sulfate 90 mcg/actuation aerosol inhaler 2 puff inhalation Q6H PRN shortness of breath or wheezing #8.5 grams 02/12/23 [Rx Last Taken Unknown] citalopram 20 mg tablet 20 mg PO DAILY 03/22/23 [History Last Taken Unknown] budesonide-formoterol HFA 80 mcg-4.5 mcg/actuation aerosol inhaler (Symbicort) 1 puff inhalation BID 04/09/23 [History Last Taken Unknown] levocetirizine 5 mg tablet 5 mg PO DAILY 04/09/23 [History Last Taken Unknown] montelukast 10 mg tablet (Singulair) 10 mg PO DAILY 04/09/23 [History Last Taken Unknown] pantoprazole 40 mg tablet,delayed release 40 mg PO BID 05/04/23 [History Last Taken Unknown] metoprolol succinate 50 mg tablet,extended release 24 hr 25 mg PO DAILY BLOOD PRESSURE 05/20/23 [History Last Taken Unknown] oxycodone-acetaminophen 5 mg-325 mg tablet (Percocet) 1 tab PO Q6H PRN pain 3 days #12 tabs 08/23/23 [Rx Last Taken Unknown] cholecalciferol (vitamin D3) 50 mcg (2,000 unit) capsule 50 mcg PO DAILY 08/25/23 [History Last Taken Unknown] magnesium 250 mg tablet 250 mg PO DAILY 08/25/23 [History Last Taken Unknown] omega-3 fatty acids 1,000 mg capsule 1,000 mg PO DAILY 08/25/23 [History Last Taken Unknown] phenazopyridine 95 mg tablet 95 mg PO BID 08/25/23 [History Last Taken Unknown] atorvastatin 40 mg tablet 40 mg PO DAILY #30 tabs 08/26/23 [Rx Last Taken Unknown] clindamycin HCl 300 mg capsule 300 mg PO TID #30 caps 09/27/23 [Rx Last Taken Unknown] doxycycline monohydrate 100 mg tablet 100 mg PO BID #20 tabs 10/19/23 [Rx Last Taken Unknown] lisinopril 10 mg tablet 5 mg (1/2 x 10 mg) PO DAILY BLOOD PRESSURE #30 tabs 01/24/24 [Rx Last Taken Unknown] Allergy/AdvReac Type Severity Reaction Status Date / Time No Known Allergies Allergy Verified 01/24/24 16:39 Family History Grandfather CVA (cerebral vascular accident) Diabetes Mother Cancer Father Hypertension Grandmother Hypertension Diabetes Surgical History H/O tooth extraction History of cholecystectomy plantar fasciitis release Social History household members: spouse and children housing: house pets and animals: Yes Smoking Status: Current some day smoker tobacco type: cigarettes alcohol intake: current alcohol intake frequency: a few times a month Alcohol type: hard liquor substance use type: does not use ROS ROS ED ROS Narrative Constitutional: Negative for fever, chills, malaise. CVS: Positive for chest pain. No syncope. Respiratory: Negative for shortness of breath, cough. GI: Negative for abdominal pain. EXAM Physical Exam Narrative Exam Narrative: CONST: Patient sitting in no acute distress. EYES: Normal inspection. NECK: Normal inspection. RESP: No respiratory distress, CTAB. CVS: Regular rate and rhythm, no murmur, no gallop. ABD: Soft and nontender, no guarding or rebound, nondistended, no hepatosplenomegaly. SKIN: Color normal, no rash, warm, dry, intact. EXTREMITIES: Normal appearance, no pedal edema. NEURO: Oriented x4. PSYCH: Normal affect. Const Vital Signs: 01/24/24 16:39 01/24/24 16:38 01/24/24 17:17 Temperature 96.9 F L Temperature Source Temporal Pulse Rate 89 Respiratory Rate 18 Respiratory Effort Normal Non-Labored Blood Pressure 180/108 H Blood Pressure Mean 132 Pulse Ox 99 Oxygen Delivery Method Room Air Room Air 01/24/24 18:32 01/24/24 21:25 Temperature Temperature Source Pulse Rate 96 Respiratory Rate 18 17 Respiratory Effort Blood Pressure 149/61 H Blood Pressure Mean 90 Pulse Ox 98 Oxygen Delivery Method Room Air MDM MDM MDM Narrative Medical decision making narrative: History gathered from: Patient and family member Differential: GERD, ACS Test considered: Patient is PERC negative so does not require D-dimer Patient has chest pain and shortness of breath that started after eating lunch. It did not improve with Tums. She has a history of NSTEMI but had normal car diac cath in 2021. She appears well and nontoxic. BP is 180/108 with otherwise normal vital signs. Cardiopulmonary exam is normal. Abdomen is soft and nontender. She has history of cholecystectomy. EKG is normal sinus rhythm 87 bpm with no acute ischemic changes. CBC and BMP are WNL. Normal LFTs. Lipase very minimally elevated 88. She has no abdominal tenderness and I am not concerned for acute pancreatitis. Initial troponin is less than 3 and repeat is for ruling out ACS. Patient had improvement after analgesia and GI cocktail. I suspect this is related to GERD as it started after eating fast food. I recommended dietary changes. She is on PPI and can use Tums or H2 sharon if needed. I discussed return precautions and she was discharged in stable condition. Cardiac catheterization 11/19/2022 EF 65%, all vessels angiographically normal Lab Data Attestation: I reviewed the patient's lab results. Labs: Laboratory Results - last 24 hr 01/24/24 01/24/24 17:50 20:58 WBC 10.1 RBC 3.90 L Hgb 12.5 Hct 37.4 MCV 95.9 MCH 32.1 H MCHC 33.4 RDW Std Deviation 41.5 RDW Coeff of Braxton 11.9 Plt Count 264 MPV 9.6 Immature Gran % (Auto) 0.400 Neut % (Auto) 54.8 Lymph % (Auto) 33.3 [place] % (Auto) 9.1 Eos % (Auto) 1.6 Baso % (Auto) 0.8 Absolute Neuts (auto) 5.5 Absolute Lymphs (auto) 3.36 Nucleated RBC % 0 Sodium 138 Potassium 3.9 Chloride 104 Carbon Dioxide 29.0 Anion Gap 5 BUN 16 Creatinine 0.74 Est GFR (MDRD) Af Amer 108 Est GFR (MDRD) Non-Af 90 BUN/Creatinine Ratio 21.7 H Glucose 110 H Calcium 10.1 Total Bilirubin 0.30 Direct Bilirubin 0.12 AST 25 ALT 23 Alkaline Phosphatase 69 Troponin I High Sens < 3 L 4 Total Protein 7.1 Albumin 3.4 Globulin 3.7 Lipase 88 H Radiography Diagnostic Testing: Clinical Impression(s) from Imaging Studies Chest X-Ray 01/24/24 17:52 IMPRESSION: Normal x-ray examination of the chest. Electronically Signed: Edgardo Arias MD at 18:47 EST , ED attending interpretation of 1-view chest x-ray shows normal heart size, no acute infiltrate, edema, or effusion. EKG Initial EKG: Attestation: I personally reviewed and interpreted this EKG as follows: Interpretation: Sinus Rhythm and No Acute Injury Pattern Comments: Normal sinus rhythm 87 bpm, no acute ischemic Discharge Plan Triage Chief Complaint: Chest Pain ED Midlevel Provider: Ainsley Bean ED Provider: Caprice Jerry Dx/Rx/DC Orders Clinical Impression: Atypical chest pain Instructions: ED Chest Pain, Noncardiac Prescriptions: No Action metformin 500 mg tablet 500 ea PO BID metoprolol succinate 50 mg tablet extended release 24 hr 25 mg PO DAILY albuterol sulfate 90 mcg/actuation HFA aerosol inhaler 2 puff inhalation Q6H PRN (Reason: shortness of breath or wheezing) Qty: 8.5 0RF magnesium 250 mg tablet 250 mg PO DAILY phenazopyridine 95 mg tablet 95 mg PO BID cholecalciferol (vitamin D3) 50 mcg (2,000 unit) capsule 50 mcg PO DAILY omega-3 fatty acids 1,000 mg capsule 1,000 mg PO DAILY clindamycin HCl 300 mg capsule 300 mg PO TID Qty: 30 0RF doxycycline monohydrate 100 mg tablet 100 mg PO BID Qty: 20 0RF aspirin 81 mg Tablet,Chewable 81 mg PO DAILY@0800 Qty: 30 0RF bupropion HCl 150 mg tablet extended release 24 hr 150 mg PO DAILY Patient Comments: take 1 tablet by mouth once daily Jardiance 10 mg tablet 10 mg PO DAILY Patient Comments: take 1 tablet by mouth once daily citalopram 20 mg tablet 20 mg PO DAILY Patient Comments: take 1 tablet by mouth once daily montelukast [Singulair] 10 mg Tablet 10 mg PO DAILY levocetirizine 5 mg Tablet 5 mg PO DAILY budesonide-formoterol [Symbicort] 80-4.5 mcg/actuation Hfa Aerosol Inhaler 1 puff INHALATION BID pantoprazole 40 mg tablet,delayed release (DR/EC) 40 mg PO BID oxycodone-acetaminophen [Percocet] 5-325 mg tablet 1 tab PO Q6H PRN (Reason: pain) 3 Days Qty: 12 0RF atorvastatin 40 mg tablet 40 mg PO DAILY Qty: 30 6RF lisinopril 10 mg tablet 5 mg PO DAILY Qty: 30 6RF Primary Care Provider: Milana Garcia Referrals: Milana Garcia, [Primary Care Provider] - Activity Restrictions/Additional Instructions: Testing of your heart looked normal. I think this is more likely related to acid reflux or gastric pain. Avoid fried or fatty foods. Continue your pantoprazole. If needed you can add Tums and Pepcid. Follow-up with your doctor. Disposition Disposition: Home, Self Care
--- NOTE | 2024-01-24 17:52 | RAD_ITS ---
STUDY: X-RAY CHEST REASON FOR EXAM: Female, 48 years old. chest pain TECHNIQUE: Single AP portable view of the chest. COMPARISON: 10/10/2023. FINDINGS: The lungs are clear and expanded. There is no demonstrated pleural abnormality. Normal size heart. Normal mediastinum and aviva. Normal visualized pulmonary arteries. Normal visualized aortic arch and descending thoracic aorta. Normal visualized thoracic spine. Normal visualized ribs, clavicles, and shoulders. There is no demonstrated abnormality of the visualized soft tissue structures of the upper abdomen. RAD/Chest 1 View (Portable) IMPRESSION: Normal x-ray examination of the chest. Electronically Signed: Edgardo Arias MD at 18:47 EST ,
[2024-01-24 17:58] LABS: Absolute Lymphocyte Count 3.36 X10^3/uL (0.83-4.51); Absolute Neutrophil Count 5.5 X10^3/uL (2.0-7.7); Basophil# 0.08 X10^3/uL; Basophil% 0.8 % (0-1); Eosinophil# 0.16 X10^3/uL; Eosinophils% 1.6 % (0-5); Hematocrit 37.4 % (37-47); Hemoglobin 12.5 g/dL (12.0-15.0); Lymphocyte # 3.36 X10^3/ul (0.83-4.51); Lymphocyte % 33.3 % (19-41); Mean Corp Hgb Conc 33.4 g/dL (32-36); Mean Corpuscular Hgb 32.1 pg (27.0-32.0); Mean Corpuscular Volume 95.9 fL (81-99); Mean Platelet Vol. 9.6 fl (6.2-12.0); Monocyte# 0.92 X10^3/uL; Monocyte% 9.1 % (0-10); NRBC Flagged by Analyzer 0 % (0-5); Neutrophil # 5.53 X10^3/uL (2.7-7.7); Neutrophil % 54.8 % (47-70); Platelet Count 264 K/mm3 (150-450); RBC Distribution Width CV 11.9 % (11.6-14.6); RBC Distribution Width SD 41.5 fl (35.1-43.9); White Blood Count 10.1 K/mm3 (4.4-11.0)
[2024-01-24] MEDS: Morphine 4 MG/ML Syringe IV (18:02)
[2024-01-24] MEDS: Mag Hydrox/Al Hydrox/Simeth 30 ML UDC PO (18:03)
[2024-01-24] MEDS: Ondansetron 4 MG/2 ML Vial IV (18:03)
[2024-01-24 18:16] LABS: Anion Gap 5 (5-15); BUN 16 mg/dL (7-18); BUN/Creat Ratio 21.7 RATIO (10-20); Calcium,Total 10.1 mg/dL (8.5-10.1); Chloride 104 mmol/L (98-107); Creatinine, Serum 0.74 mg/dL (0.55-1.02); EST Glomerular Filtration Rate 90 mL/min (>60); Est Glom Filt Rate - Afr Amer 108 mL/min (>60); Glucose 110 mg/dL (74-106); Potassium 3.9 mmol/L (3.5-5.1); Sodium Level 138 mmol/L (136-145); Troponin-I HS (w/2H Reflex) < 3 pg/mL (3.0-54.0)
[2024-01-24 18:32] VITALS: RESP 18
[2024-01-24 19:56] LABS: Reflex Troponin-HS? (from REC) Y
[2024-01-24 19:58] LABS: Lipase 88 U/L (13-75)
[2024-01-24 20:06] LABS: AST(SGOT) 25 U/L (15-37); Alanine Aminotransfer ALT/SGPT 23 U/L (13-56); Albumin, Serum 3.4 g/dL (3.2-5.0); Alkaline Phosphatase 69 U/L (45-117); Bilirubin, Direct 0.12 mg/dL (0.00-0.30); Globulin 3.7 g/dL (2.2-4.2); Protein, Total 7.1 g/dL (6.4-8.2)
[2024-01-24] MEDS: DiphenhydrAMINE 50 MG/ML Syringe 12.5 MG IV (20:57)
[2024-01-24] MEDS: proCHLORPERazine 10 MG/2 ML Vial IV (20:58)
[2024-01-24 21:21] LABS: Troponin-I HS 4 pg/mL (3.0-54.0)
[2024-01-24 21:25] VITALS: BP 149/61; PULSE 96; RESP 17; O2SAT 98; BMI 28.0
[2024-01-24 21:30] VITALS: BP 149/61; PULSE 96; RESP 16; TEMP 36.1; O2SAT 98
== END 2024-01-24 21:33 | disposition home or self-care (01) ==
PROVIDERS: Physician Assistant; Emergency Provider Emergency Medicine; PCP Family Medicine; Visit Provider Emergency Medicine
DX: R07.89 Other chest pain (principal); J44.9 Chronic obstructive pulmonary disease, unspecified; E11.9 Type 2 diabetes mellitus without complications; E78.5 Hyperlipidemia, unspecified; F17.210 Nicotine dependence, cigarettes, uncomplicated; I10 Essential (primary) hypertension; Z90.49 Acquired absence of other specified parts of digestive tract; I25.2 Old myocardial infarction; G47.30 Sleep apnea, unspecified; Z99.89 Dependence on other enabling machines and devices; Z79.84 Long term (current) use of oral hypoglycemic drugs; F32.A Depression, unspecified; Z79.51 Long term (current) use of inhaled steroids; K21.9 Gastro-esophageal reflux disease without esophagitis
CPT/HCPCS: 71045; 80048; 80076; 83690; 84484; 85025; 93005; 96374; 96375; 99284; A4216; J2405

== ENCOUNTER → 2024-03-21 | Outpatient (CLI) | payer BC, SELFPAY ==
[2024-03-21 18:41] LABS: Urine Sodium 104 mmol/L (Not Establ.)
[2024-03-21 19:31] LABS: ALB/GLOB Ratio 0.9 RATIO (0.9-2.4); AST(SGOT) 22 U/L (15-37); Alanine Aminotransfer ALT/SGPT 27 U/L (13-56); Albumin, Serum 3.6 g/dL (3.2-5.0); Alkaline Phosphatase 67 U/L (45-117); Anion Gap 7 (5-15); BUN 16 mg/dL (7-18); BUN/Creat Ratio 21.6 RATIO (10-20); Calcium,Total 8.8 mg/dL (8.5-10.1); Chloride 105 mmol/L (98-107); Creatinine, Serum 0.74 mg/dL (0.55-1.02); EST Glomerular Filtration Rate 89 mL/min (>60); Est Glom Filt Rate - Afr Amer 108 mL/min (>60); Glucose 121 mg/dL (74-106); Magnesium 1.7 mg/dL (1.6-2.6); Protein, Total 7.6 g/dL (6.4-8.2); Sodium Level 136 mmol/L (136-145); Thyroid Stim Hormone (TSH) 1.06 uIU/mL (0.358-3.74)
[2024-03-21 20:42] LABS: Osmolality, Serum 286 mOsm/KG (275-295); Osmolality, Urine 535 mOsm/KG
== END | disposition home or self-care (01) ==
LOC: MFPLAB 12:26
PROVIDERS: PCP Family Medicine; Visit Provider Family Medicine
DX: R25.2 Cramp and spasm (principal); E11.9 Type 2 diabetes mellitus without complications
CPT/HCPCS: 36415; 80053; 83735; 83930; 83935; 84300; 84443

== ENCOUNTER 2024-07-11 11:12 | Emergency (ER) | payer BC, SELFPAY ==
[2024-07-11 11:13] VITALS: BP 222/109; PULSE 111; RESP 22; TEMP 36.8; O2SAT 94
[2024-07-11 11:31] LABS: Red Blood Cells-Urine 0 SEEN /hpf (0-5)
[2024-07-11 11:35] LABS: Absolute Lymphocyte Count 1.73 X10^3/uL (0.83-4.51); Absolute Neutrophil Count 4.5 X10^3/uL (2.0-7.7); Basophil# 0.05 X10^3/uL; Basophil% 0.7 % (0-1); Eosinophil# 0.17 X10^3/uL; Eosinophils% 2.4 % (0-5); Hematocrit 41.9 % (37-47); Lymphocyte # 1.73 X10^3/ul (0.83-4.51); Lymphocyte % 24.2 % (19-41); Mean Corp Hgb Conc 33.4 g/dL (32-36); Mean Corpuscular Hgb 31.6 pg (27.0-32.0); Mean Corpuscular Volume 94.6 fL (81-99); Monocyte# 0.67 X10^3/uL; Monocyte% 9.4 % (0-10); NRBC Flagged by Analyzer 0.3 % (0-5); Neutrophil # 4.51 X10^3/uL (2.7-7.7); Neutrophil % 62.9 % (47-70); Platelet Count 243 K/mm3 (150-450); RBC Distribution Width CV 12.7 % (11.6-14.6); RBC Distribution Width SD 43.8 fl (35.1-43.9); Red Blood Count 4.43 M/mm3 (4.2-5.4); White Blood Count 7.2 K/mm3 (4.4-11.0)
[2024-07-11 11:42] LABS: Color, Urine Yellow (Yellow); Glucose, Dipstick 50 mg/dl (Normal); Ketone-Dipstick 5 mg/dl (Negative); Leukocyte Esterase-Dipstick 25 /ul (Negative); Nitrite-Dipstick Negative (Negative); Occult Blood-Urine 25 /ul (Negative); Protein-Dipstick 100 mg/dl (Negative); Specific Gravity, Urine 1.025 (1.002-1.030); Urine Bilirubin Dipstick Negative (Negative); Urine Clarity Cloudy (Clear); Urine Urobilinogen 1 mg/dl (Normal)
--- NOTE | 2024-07-11 11:46 | CT_ITS ---
STUDY: CT ABDOMEN AND PELVIS WITHOUT CONTRAST REASON FOR EXAM: Female, 49 years old. Right flank pain. History of prior cholecystectomy. RADIATION DOSAGE (If Supplied By Facility): CTDIvol = ( 11.38 ) mGy, DLP = ( 520.24 ) mGycm TECHNIQUE: Transaxial images were obtained from the dome of the diaphragm to the symphysis pubis without oral contrast, and without intravenous contrast. Sagittal and coronal images were reconstructed. Individualized dose optimization techniques were used for this CT. COMPARISON: Comparison is made with prior study dated August 23, 2023. FINDINGS: The visualized lung bases are unremarkable. The visualized portions of the heart are within normal limits. Normal liver. There are surgical clips in the gallbladder fossa consistent with a prior cholecystectomy. Normal spleen. Calcifications are seen in the head of the pancreas suggestive of chronic pancreatitis.. Normal bilateral adrenal glands. Normal right kidney. Normal left kidney. Normal visualized stomach. Normal small intestine. Normal colon. The appendix is visualized and appears normal. There is scattered atherosclerotic calcification of the abdominal aorta, without a demonstrated aneurysm. Normal inferior vena cava. Normal retroperitoneum. Normal urinary bladder. There is a 2.4 cm left ovarian cyst. Normal abdominal wall. Normal osseous structures. CT/Abdomen/Pelvis without Cont IMPRESSION: Status post cholecystectomy. Calcifications are seen in the head of the pancreas suggestive of chronic pancreatitis. Left ovarian cyst. Electronically Signed: Guy Roger MD at 13:19 EDT ,
[2024-07-11 11:50] LABS: Internal QC Validated? YES +Cl - CLEAR BKGD; Pregnancy, Serum, hCG Quali. NEGATIVE Negative
[2024-07-11 11:53] LABS: Squamous Epithelial Cells - UA 5-10 SEEN /hpf (5-10); White Blood Cells 5-10 SEEN /hpf (0-5)
[2024-07-11 11:54] LABS: Bacteria 1+ /hpf (None Seen)
[2024-07-11 11:55] LABS: Mucous, Urine RARE /hpf (<or=2+)
[2024-07-11 11:59] LABS: ALB/GLOB Ratio 0.9 RATIO (0.9-2.4); AST(SGOT) 35 U/L (15-37); Alanine Aminotransfer ALT/SGPT 58 U/L (13-56); Albumin, Serum 3.7 g/dL (3.2-5.0); Alkaline Phosphatase 94 U/L (45-117); Anion Gap 9 (5-15); BUN 11 mg/dL (7-18); BUN/Creat Ratio 16.3 RATIO (10-20); Calcium,Total 8.5 mg/dL (8.5-10.1); Chloride 101 mmol/L (98-107); Creatinine, Serum 0.67 mg/dL (0.55-1.02); EST Glomerular Filtration Rate 100 mL/min (>60); Est Glom Filt Rate - Afr Amer 120 mL/min (>60); Glucose 175 mg/dL (74-106); Potassium 3.8 mmol/L (3.5-5.1); Protein, Total 7.7 g/dL (6.4-8.2); Sodium Level 136 mmol/L (136-145)
[2024-07-11] MEDS: 0.9% Normal Saline (1000mL) 1,000 ML 999 ML IV (12:01)
[2024-07-11] MEDS: Ondansetron 4 MG/2 ML Vial IV (12:02)
[2024-07-11] MEDS: Morphine 4 MG/ML Syringe IV (12:02)
[2024-07-11] MEDS: Ketorolac 30 MG/ML Syringe IV (12:02)
--- NOTE | 2024-07-11 12:24 | EDS_ITS ---
HPI History of Present Illness Chief Complaint: Abd Pain Informant: patient Narrative Narrative: 49-year-old female presenting to the emergency room with abdominal and flank pain. Patient states she woke this morning with low back pain bilaterally. She states that shortly thereafter she developed pain going onto the right side of her abdomen as well as nausea and vomiting. She denies any urinary or bowel changes. No fevers. Patient notes that she went to bed last night feeling fine. She does not recall any injury to the low back. Her notes that there was some physical activity yesterday that may have caused a back strain. She denies any radicular symptoms from the back. No rashes. She has had prior cholecystectomy. [facility] Medical History Strain of left foot Plantar fasciitis of left foot Acute otitis media, right Contact with or exposure to other viral diseases URI (upper respiratory infection) Alcohol abuse GERD (gastroesophageal reflux disease) CPAP (continuous positive airway pressure) dependence Smoker COPD (chronic obstructive pulmonary disease) Myocardial infarct Seizures History of left heart catheterization (LHC) (~11/19/22) Sleep apnea Pancreatitis Acute lumbar myofascial strain Strain of left hip Depression Anxiety Diabetes HTN (hypertension) Type 2 diabetes mellitus Home Medications ?Medication ?Instructions ?Recorded ?Last Taken ?Type metformin 500 mg tablet 500 ea PO BID DIABETES 10/31/22 11/17/22 21:30 History aspirin 81 mg chewable tablet 81 mg PO DAILY@0800 #30 tabs 11/19/22 Unknown Rx bupropion HCl 150 mg 24 hr tablet, 150 mg PO DAILY 01/21/23 Unknown History extended release empagliflozin 10 mg tablet 10 mg PO DAILY 01/21/23 Unknown History (Jardiance) citalopram 20 mg tablet 20 mg PO DAILY 03/22/23 Unknown History budesonide-formoterol HFA 80 1 puff inhalation BID 04/09/23 Unknown History mcg-4.5 mcg/actuation aerosol inhaler (Symbicort) levocetirizine 5 mg tablet 5 mg PO DAILY 04/09/23 Unknown History montelukast 10 mg tablet 10 mg PO DAILY 04/09/23 Unknown History (Singulair) pantoprazole 40 mg tablet,delayed 40 mg PO BID 05/04/23 Unknown History release metoprolol succinate 50 mg 25 mg PO DAILY BLOOD PRESSURE 05/20/23 Unknown History tablet,extended release 24 hr oxycodone-acetaminophen 5 mg-325 1 tab PO Q6H PRN pain 3 days #12 08/23/23 Unknown Rx mg tablet (Percocet) tabs cholecalciferol (vitamin D3) 50 50 mcg PO DAILY 08/25/23 Unknown History mcg (2,000 unit) capsule magnesium 250 mg tablet 250 mg PO DAILY 08/25/23 Unknown History omega-3 fatty acids 1,000 mg 1,000 mg PO DAILY 08/25/23 Unknown History capsule phenazopyridine 95 mg tablet 95 mg PO BID 08/25/23 Unknown History clindamycin HCl 300 mg capsule 300 mg PO TID #30 caps 09/27/23 Unknown Rx doxycycline monohydrate 100 mg 100 mg PO BID #20 tabs 10/19/23 Unknown Rx tablet lisinopril 10 mg tablet 5 mg (1/2 x 10 mg) PO DAILY BLOOD 01/24/24 Unknown Rx PRESSURE #30 tabs prednisone 10 mg tablet 10 mg PO DAILY #18 tabs 03/22/24 Unknown Rx atorvastatin 40 mg tablet 40 mg PO DAILY #30 tabs 04/18/24 Unknown Rx albuterol sulfate 90 mcg/actuation 2 puff inhalation Q6H PRN 04/27/24 Unknown Rx aerosol inhaler shortness of breath or wheezing #8.5 grams ondansetron 4 mg disintegrating 4 mg PO Q6H PRN nausea and 04/27/24 Unknown Rx tablet vomiting #10 tabs diazepam 5 mg tablet 5 mg PO Q8 PRN Muscle Spasm #15 07/11/24 Unknown Rx tabs ondansetron 4 mg disintegrating 4 mg PO Q6H PRN vomiting #10 tabs 07/11/24 Unknown Rx tablet oxycodone-acetaminophen 5 mg-325 1 tab PO Q6H PRN PRN Pain 3 days 07/11/24 Unknown Rx mg tablet #12 TABLETS Allergy/AdvReac Type Severity Reaction Status Date / Time No Known Allergies Allergy Verified 07/11/24 11:13 Family History Grandfather CVA (cerebral vascular accident) Diabetes Mother Cancer Father Hypertension Grandmother Hypertension Diabetes Surgical History History of cholecystectomy H/O tooth extraction plantar fasciitis release Social History household members: spouse and children housing: house pets and animals: Yes Smoking Status: Current some day smoker tobacco type: cigarettes alcohol intake: current alcohol intake frequency: a few times a month Alcohol type: hard liquor substance use type: does not use ROS ROS ED Constitutional Constitutional ED: Denies chills, fever(s) or weight loss Eyes Eyes: Denies change in vision or diplopia ENT ENT ED: Denies ear pain, rhinorrhea or sore throat Cardiovascular Cardiovascular: Denies chest pain, orthopnea, palpitations or racing heartbeat Respiratory/Chest Respiratory/Chest: Denies cough, dyspnea or orthopnea Gastrointestinal Gastrointestinal: Reports abdominal pain, nausea and vomiting; Denies diarrhea Genitourinary Genitourinary ED: Denies dysuria, hematuria or urinary frequency Musculoskeletal Musculoskeletal: Reports back pain; Denies arthralgias, myalgias or neck pain Integumentary Denies abscess or rash Neurologic Neurologic: Denies headache(s) or weakness Psychiatric Psychiatric: Denies anxiety, depression, suicidal ideation or suicidal thoughts Endocrine Endocrinology: Denies polydipsia, polyphagia or polyuria Allergic/Immunologic Allergic/Immunologic ED: Denies mouth swelling, tongue swelling or urticaria EXAM Physical Exam Narrative Exam Narrative: Patient is sitting up in the bed with her knees drawn up. She is rocking back and forth holding an emesis bag. Const Vital Signs: 07/11/24 11:13 07/11/24 13:11 07/11/24 14:07 Temperature 98.2 F Temperature Source Temporal Pulse Rate 111 H 87 85 Respiratory Rate 22 H 16 19 H Blood Pressure 222/109 H 204/95 H 195/97 H Blood Pressure Mean 146 131 129 Pulse Ox 94 96 96 Oxygen Delivery Method Room Air Room Air Room Air 07/11/24 14:32 Temperature 97.4 F L Temperature Source Pulse Rate 85 Respiratory Rate 16 Blood Pressure 166/79 H Blood Pressure Mean 108 Pulse Ox 97 Oxygen Delivery Method Positive well nourished and well developed General Appearance ED: well developed HEENT Reports normocephalic, head/scalp atraumatic and moist mucous membranes Eyes PERRL and EOMs intact bilaterally Neck no lymphadenopathy, supple and no JVD Resp normal respiratory effort and clear to auscultation bilaterally Cardio regular rate, regular rhythm and no murmurs Rate: tachycardic GI Inspection: Negative for abdominal distention Auscultation: normoactive bowel sounds Palpation: soft, tender RLQ and RUQ and guarding; Negative for rebound tenderness present Back/Spine no CVA tenderness Back/Spine Narrative: Patient reports painful range of motion. Tender palpation over the lower lumbar paraspinal musculature. There is no visual or tactile soft tissue changes to suggest underlying infection. Extremity normal to inspection General Extremety ED: Negative for edema General Extremity: Negative for edema Neuro oriented x3 and CN's II-XII intact bilaterally Sensorium / Orientation: alert Motor Exam: strength 5/5 throughout Psych Mood & Affect: anxious and tearful; Negative for depressed Skin no rashes or lesions noted and no wounds MDM MDM MDM Narrative Medical decision making narrative: Differential diagnosis includes but not limited to hypertensive emergency, ureterolithiasis lumbar paraspinal myofascial strain, UTI, pancreatitis biliary colic aneurysmal rupture of the aorta Basic blood work was obtained essentially negative except for glucose 175 ALT 58 lipase is normal at 32 test is negative urinalysis 5-10 white cells 1+ bacteria but also 5-10 squamous cells. This is negative for nitrates. CT then pelvis shows some calcifications of the pancreas consistent with chronic pancreatitis. Left ovarian cyst noted. The patient received morphine Zofran and Toradol later diazepam. For her blood pressure we administered hydralazine. Blood pressure is down. Patient notes that most of her symptoms now seem to be focused and on the low back. Can write for some muscle relaxant and pain medication. She is to use heat and rest. Recommend PCP follow-up return if worsening History & Record Review Discussion w/independent historian: Patient and Significant other Lab Data Attestation: I reviewed the patient's lab results. Labs: Laboratory Results - last 24 hr 07/11/24 07/11/24 11:23 11:30 WBC 7.2 RBC 4.43 Hgb 14.0 Hct 41.9 MCV 94.6 MCH 31.6 MCHC 33.4 RDW Std Deviation 43.8 RDW Coeff of [place]xton 12.7 Plt Count 243 MPV 9.0 Immature Gran % (Auto) 0.400 Neut % (Auto) 62.9 Lymph % (Auto) 24.2 [place] % (Auto) 9.4 Eos % (Auto) 2.4 Baso % (Auto) 0.7 Absolute Neuts (auto) 4.5 Absolute Lymphs (auto) 1.73 Nucleated RBC % 0.3 Sodium 136 Potassium 3.8 Chloride 101 Carbon Dioxide 26.0 Anion Gap 9 BUN 11 Creatinine 0.67 Est GFR (MDRD) Af Amer 120 Est GFR (MDRD) Non-Af 100 BUN/Creatinine Ratio 16.3 Glucose 175 H Calcium 8.5 Total Bilirubin 0.40 AST 35 ALT 58 H Alkaline Phosphatase 94 Total Protein 7.7 Albumin 3.7 Globulin 4.0 Albumin/Globulin Ratio 0.9 Lipase 32 Serum , Qual NEGATIVE Urine Color Yellow Urine Clarity Cloudy Urine pH 6.0 Ur Specific [place] 1.025 Urine Protein 100 H Urine Glucose (UA) 50 H Urine Ketones 5 H Urine Occult Blood 25 H Urine Nitrite Negative Urine Bilirubin Negative Urine Urobilinogen 1 H Ur Leukocyte Esterase 25 H Urine RBC 0 SEEN Urine WBC 5-10 SEEN Ur Squamous Epith Cells 5-10 SEEN Urine Bacteria 1+ Urine Mucus RARE Radiography Diagnostic Testing: Clinical Impression(s) from Imaging Studies Abdomen/Pelvis CT 07/11/24 11:46 IMPRESSION: Status post cholecystectomy. Calcifications are seen in the head of the pancreas suggestive of chronic pancreatitis. Left ovarian cyst. Electronically Signed: Guy Roger MD at 13:19 EDT , Discharge Plan Triage Chief Complaint: Abd Pain ED Provider: Shane Jacobs Dx/Rx/DC Orders Clinical Impression: Acute lumbar back pain, Hypertension, Vomiting, Abdominal pain Instructions: ED Back Pain (Acute or Chronic), ED High Blood Pressure Hypertension Prescriptions: New oxycodone-acetaminophen 5-325 mg tablet 1 tab PO Q6H PRN PRN (Reason: Pain) 3 Days Qty: 12 0RF ondansetron 4 mg tablet,disintegrating 4 mg PO Q6H PRN (Reason: vomiting) Qty: 10 0RF diazepam [diazepam] 5 mg tablet 5 mg PO Q8 PRN (Reason: Muscle Spasm) Qty: 15 0RF No Action metformin 500 mg tablet 500 ea PO BID metoprolol succinate 50 mg tablet extended release 24 hr 25 mg PO DAILY magnesium 250 mg tablet 250 mg PO DAILY phenazopyridine 95 mg tablet 95 mg PO BID cholecalciferol (vitamin D3) 50 mcg (2,000 unit) capsule 50 mcg PO DAILY omega-3 fatty acids 1,000 mg capsule 1,000 mg PO DAILY clindamycin HCl 300 mg capsule 300 mg PO TID Qty: 30 0RF doxycycline monohydrate 100 mg tablet 100 mg PO BID Qty: 20 0RF prednisone 10 mg tablet 10 mg PO DAILY Qty: 18 0RF Rx Instructions: then 3 tablets daily x3 days, then 2 tablets daily x3 days, then 1 tablet daily x3 days albuterol sulfate 90 mcg/actuation HFA aerosol inhaler 2 puff inhalation Q6H PRN (Reason: shortness of breath or wheezing) Qty: 8.5 0RF ondansetron 4 mg tablet,disintegrating 4 mg PO Q6H PRN (Reason: nausea and vomiting) Qty: 10 0RF aspirin 81 mg Tablet,Chewable 81 mg PO DAILY@0800 Qty: 30 0RF bupropion HCl 150 mg tablet extended release 24 hr 150 mg PO DAILY Patient Comments: take 1 tablet by mouth once daily Jardiance 10 mg tablet 10 mg PO DAILY Patient Comments: take 1 tablet by mouth once daily citalopram 20 mg tablet 20 mg PO DAILY Patient Comments: take 1 tablet by mouth once daily montelukast [Singulair] 10 mg Tablet 10 mg PO DAILY levocetirizine 5 mg Tablet 5 mg PO DAILY budesonide-formoterol [Symbicort] 80-4.5 mcg/actuation Hfa Aerosol Inhaler 1 puff INHALATION BID pantoprazole 40 mg tablet,delayed release (DR/EC) 40 mg PO BID oxycodone-acetaminophen [Percocet] 5-325 mg tablet 1 tab PO Q6H PRN (Reason: pain) 3 Days Qty: 12 0RF lisinopril 10 mg tablet 5 mg PO DAILY Qty: 30 6RF atorvastatin 40 mg tablet 40 mg PO DAILY Qty: 30 6RF Stand Alone Forms: ED Work / School Excuse Primary Care Provider: Abisai Haley Referrals: Abisai Haley MD [Primary Care Provider] - 1 Week if not improving Print Language: Kyrgyz Disposition Disposition: Home, Self Care Discharge Date/Time: 07/11/24 14:39
[2024-07-11 13:11] VITALS: BP 204/95; PULSE 87; RESP 16; O2SAT 96
[2024-07-11 14:05] LABS: Lipase 32 U/L (13-75)
[2024-07-11 14:07] VITALS: BP 195/97; PULSE 85; RESP 19; O2SAT 96
[2024-07-11] MEDS: diazePAM 5 MG Tablet PO (14:13)
[2024-07-11] MEDS: hydrALAZINE 20 MG/ML Vial IV (14:13)
[2024-07-11 14:32] VITALS: BP 166/79; PULSE 85; RESP 16; TEMP 36.3; O2SAT 97
== END 2024-07-11 14:39 | disposition home or self-care (01) ==
LOC: ED 12:38
PROVIDERS: Emergency Provider Emergency Medicine; PCP Family Medicine; Visit Provider Emergency Medicine
DX: M54.50 Low back pain, unspecified (principal); J44.9 Chronic obstructive pulmonary disease, unspecified; E11.9 Type 2 diabetes mellitus without complications; I10 Essential (primary) hypertension; F17.210 Nicotine dependence, cigarettes, uncomplicated; R11.10 Vomiting, unspecified; I25.2 Old myocardial infarction; G47.30 Sleep apnea, unspecified
CPT/HCPCS: 74176; 80053; 81001; 83690; 84703; 85025; 99284; J7030; A4216; J2405

== ENCOUNTER 2024-08-15 10:46 | Outpatient (RCR) | payer BC, SELFPAY ==
--- NOTE | 2024-08-16 10:56 | HP.PTEVAL_ITS ---
Patient's Visit Information Visit Information Visit Information: JOSEPH RINCON is a 49 year old F referred to Physical Therapy by Abisai Haley MD with a diagnosis of Low Back pain. Date of Evaluation: 08/15/24 Physical Therapist: Liam Welch DPT Visit Plan Frequency: 2x /Week Duration: 4 Weeks Plan: Start with extension progression, but slowly. Add in IASTIM to reduce muscle spasms. I did talk with her about getting some imaging done as her symptoms have not improved over the past few weeks. Subjective Subjective: Pt. is here today for her initial evaluation with diagnosis of low back pain. Pt. reports having no mech of injury, but has had pain for ~3 months now. Pt. reports pain predominantly in lumbar spine mostly on L side. No radic ular symptoms. No N/T. No sudden LE weakness. Mornings are slightly worse. Pt. reports once I get moving its a little bit better. No position seems to be better. 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 Pt. has not had any imaging at this point in time. Pt. reports having a constant ache like pain with intermittent sharp pains. She reports she was to get back with physician last week to see how she was doing. She has been taking a muscle relaxor and pain medication without much relief. Pain Lumbar spine: Pain Intensity (Out of 10): 6 Pain Intensity Range: 3 and 9 Objective Objective: POSTURE: pt. has decent posture in stance. No lateral shift noted. PALPATION: Pt. has increased tenderness at B lumbar erector spinae. Pt. has increased pain and hypomobility with spring testing throughout lumbar spine, worsening at lower segments. NEURO: normal DTR and normal sensation throughout. ROM: LUMBAR SPINE; flexion min/mod loss increase NW, ext min loss less increase NW, SB min loss bilat NE, rotation min loss bilat increase NW to L side. MMT: 5/5 throughout BLEs. Pt. has fair - core strength. GAIT: Pt. has guarded gait pattern. Pt. has reduced arm swing with gait as well. No marked Trendelenburg noted. Special Tests L/S Slump test left side: Negative L/S Slump test right side: Negative L/S Left Straight Leg Raise: Negative L/S Right Straight Leg Raise: Negative Lumbar Standing: Flexion - Mechanical Response: No effect Lumbar Standing: Flexion - Symptoms During Testing: Increases Lumbar Standing: Flexion - Symptoms After Testing: No worse Lumbar Standing: Extension - Mechanical Response: No effect Lumbar Standing: Extension - Symptoms During Testing: No effect Lumbar Standing: Extension - Symptoms After Testing: No better Lumbar Standing: Right Side Glides - Mechanical Response: No effect Lumbar Standing: Right Side [place] - Symptoms During Testing: No effect Lumbar Standing: Right Side [place] - Symptoms After Testing: No effect Lumbar Standing: Left Side [place] - Mechanical Response: No effect Lumbar Standing: Left Side [place] - Symptoms During Testing: No effect Lumbar Standing: Left Side [place] - Symptoms After Testing: No effect Lumbar Lying: Flexion - Mechanical Response: No effect Lumbar Lying: Flexion - Symptoms During Testing: Increases Lumbar Lying: Flexion - Symptoms After Testing: No worse Lumbar Lying: Extension - Mechanical Response: No effect Lumbar Lying: Extension - Symptoms During Testing: Increases Lumbar Lying: Extension - Symptoms After Testing: No worse Balance/Special Test Scores Oswestry Low Back Score: 16 Goals Goal 1:: LTG: Pt. to be I with HEP. Goal Time Frame: 4-6 Weeks Goal 2:: LTG: Pt. to have increased lumbar spine ROM in all directions by 25% without increase in symptoms. Goal Time Frame: 4-6 Weeks Goal 3:: LTG: Pt. be able to work without increase in lumbar spine. Goal Time Frame: 4-6 Weeks Goal 4:: LTG: Pt. to sleep throughout the night without increase in symptoms. Goal Time Frame: 4-6 Weeks Goal 5:: LTG: Pt. to have increased core strength to fair to reduce stress to lumbar spine with all activities. Goal Time Frame: 4-6 Weeks Rehabilitation Potential Physical Therapy Diagnosis: Pt. has signs and symptoms consistent with low back pain. Pt. did not have a directional preference and did not present with any directional preference this date. Pt. does have some limited lumbar ROM which I would like to work on progressing her lumbar ROM and decreasing her pain. Rehabilitation Potential: Fair Anticipated Interventions Patient/Client Instruction: Educate patient on: Condition, Plan of Care, Risk Factors and Benefits of Fitness Program For the Purpose of:: To improve decision making, To facilitate caregiver knowledge, To improve self management, To prevent re-injury and To improve ability to perform tasks related to life management Therapeutic Exercise to Include: Strength training, Power training, Postural training, Active ROM, Dynamic Lumbar Stabilization and [place] Exercises For the Purpose of:: To decrease pain, To increase ROM, To improve nutrient delivery to tissue, To increase oxygenation perfusion, To improve muscle performance and motor function, To improve ability to perform ADL's and To increase tolerance to activity/condition/position Manual Therapy Techniques to Include: Massage, Mobilization and Soft tissue mobilization Comment: IASTIM For the Purpose of:: To decrease pain, To decrease swelling/inflammation, To increase ROM, To improve nutrient delivery to tissue, To increase oxygenation pe rfusion and To improve muscle performance and motor function Text: Thank you for the opportunity to evaluate your patient. For Medicare and Medicare HMO plans, please review the plan of care and approve it. It will need to be FAXED BACK to us at [phone] for Medicare purposes. For Medicare only, by signing this I certify the plan of care. Please let me know if there are questions or concerns regarding this plan of care. Physician Signature: Date:
--- NOTE | 2024-11-28 08:56 | HP.PT.NRP ---
Patient Information Patient Information: JOSEPH RINCON was seen in my office for initial evaluation on 08/15/24. The following Plan of Care was established for this patient: POC Established Initial Frequency: 2x /Week Initial Duration: 4 Weeks Anticipated Interventions Patient/Client Instruction: Educate patient on: Condition, Plan of Care, Risk Factors and Benefits of Fitness Program For the Purpose of:: To improve decision making, To facilitate caregiver knowledge, To improve self management, To prevent re-injury and To improve ability to perform tasks related to life management Therapeutic Exercise to Include: Strength training, Power training, Postural training, Active ROM, Dynamic Lumbar Stabilization and Osito Exercises For the Purpose of:: To decrease pain, To increase ROM, To improve nutrient delivery to tissue, To increase oxygenation perfusion, To improve muscle performance and motor function, To improve ability to perform ADL's and To increase tolerance to activity/condition/position Manual Therapy Techniques to Include: Massage, Mobilization and Soft tissue mobilization Comment: IASTIM For the Purpose of:: To decrease pain, To decrease swelling/inflammation, To increase ROM, To improve nutrient delivery to tissue, To increase oxygenation perfusion and To improve muscle performance and motor function Last Seen Last Seen: This patient was last seen in our office 08/15/24. Pertinent comments regarding their Physical therapy will appear below: Pt. was seen for her initial evaluation, pt. has not been seen since and will be DC from PT. At this point I will be discontinuing this patient from physical therapy. I would be happy to see this patient again in the future if found appropriate by the physician. Thank you! Liam Welch, DPT Balance/Gait/Functional tests Balance/Special Test Scores Oswestry Low Back Score: 16
== END 2024-08-15 19:00 | disposition home or self-care (01) ==
LOC: PT 10:46
PROVIDERS: PCP Family Medicine; Referring Provider Family Medicine; Visit Provider Family Medicine
DX: M54.9 Dorsalgia, unspecified (principal)
CPT/HCPCS: 97161

== ENCOUNTER → 2024-08-22 | Outpatient (CLI) | payer BC, SELFPAY ==
[2024-08-22 12:40] LABS: ALB/GLOB Ratio 0.9 RATIO (0.9-2.4); AST(SGOT) 41 U/L (15-37); Alanine Aminotransfer ALT/SGPT 39 U/L (13-56); Albumin, Serum 3.6 g/dL (3.2-5.0); Alkaline Phosphatase 91 U/L (45-117); Anion Gap 6 (5-15); BUN 8 mg/dL (7-18); BUN/Creat Ratio 11.9 RATIO (10-20); Calcium,Total 9.6 mg/dL (8.5-10.1); Chloride 104 mmol/L (98-107); Cholesterol 124 mg/dL (200); Creatinine, Serum 0.67 mg/dL (0.55-1.02); EST Glomerular Filtration Rate 100 mL/min (>60); Est Glom Filt Rate - Afr Amer 121 mL/min (>60); Glucose 130 mg/dL (74-106); High Density Lipoprotein 70 mg/dL; Potassium 4.2 mmol/L (3.5-5.1); Protein, Total 7.6 g/dL (6.4-8.2); Sodium Level 137 mmol/L (136-145); Triglycerides 204 mg/dL; Very Low Density Lipoprotein 41 mg/dL (5-40)
== END | disposition home or self-care (01) ==
LOC: LAB 10:30
PROVIDERS: PCP Family Medicine; Referring Provider Physician Assistant Medical; Visit Provider Physician Assistant Medical
DX: E78.1 Pure hyperglyceridemia (principal); I10 Essential (primary) hypertension
CPT/HCPCS: 36415; 80053; 80061

== ENCOUNTER → 2024-09-25 | Outpatient (CLI) | payer BC, SELFPAY ==
--- NOTE | 2024-09-25 14:45 | MRI_ITS ---
EXAM: MR LUMBAR SPINE WITHOUT INTRAVENOUS CONTRAST CLINICAL INDICATION: pain TECHNIQUE: Multiplanar and multisequence MR images of the lumbar spine without intravenous contrast. COMPARISON: Lumbar spine x-ray 08/28/2024. FINDINGS: VERTEBRAE: See below. SPINAL CORD: Unremarkable. Normal position and signal intensity of the conus medullaris. SOFT TISSUES: Unremarkable. DISCS/SPINAL CANAL/NEURAL FORAMINA: L1-L2: Unremarkable. Normal disc height and morphology. Normal spinal canal and lateral recesses. Normal neuroforamina. L2-L3: Unremarkable. Normal disc height and morphology. Normal spinal canal and lateral recesses. Normal neuroforamina. L3-L4: Unremarkable. Normal disc height and morphology. Normal spinal canal and lateral recesses. Normal neuroforamina. L4-L5: Mild generalized disc bulge. Mild bilateral facet arthropathy. No spinal canal or foraminal stenosis. L5-S1: Mild generalized disc bulge. Mild bilateral facet arthropathy. No spinal canal or foraminal stenosis. MRI/Spine Lumbar (Routine) IMPRESSION: 1. L4-L5 mild generalized disc bulge without spinal canal or foraminal stenosis. Mild bilateral facet arthropathy. 2. L5-S1 mild generalized disc bulge without spinal canal or foraminal stenosis. Mild bilateral facet arthropathy. Electronically Signed: Noe Braden MD at 22:29 EDT ,
--- OUTSIDE RECORDS SUMMARY | 2024-09-25 18:16 | XMS RPT_ITS | CCD ---
Author Organization [facility] Inform ion Partnership [facility] Care Team Providers Care Older Adult Social Work Specialist Name Role Phone Required, No Pcp Unavailable Unavailable Noe Engel Unavailable Ihsan Aguilar DO Primary Care Provider Ihsan Aguilar DO Primary Care Provider IHSAN AGUILAR Primary Care Unavailable Medications Current Medications Medication Drug Class(es) Dates Sig (Normalized) Sig (Original) [id number] 200 actuat albuterol 0.09 mg/actuat metered dose inhaler (1 source) beta2-Adrenergic Agonist take 2 puff(s) by inhalation every four hours as needed albuterol HFA (PROVENTIL HFA, VENTOLIN HFA) 90 mcg/actuation inhaler INHALE 2 (two) PUFFS every 4 hours as needed 0 Active amLODIPine 10 mg oral tablet (3 sources) Dihydropyridine Calcium Channel Lovely Start: 04-01-2020 take 1 tablet by mouth once daily amLODIPine (NORVASC) 10 mg tablet Indications: Essential hypertension Take 1 tablet by mouth once daily. 90 tablet 04/01/2020 Active Comment on above: Take 1 tablet by jean th once daily. atorvastatin 40 mg oral tablet (1 source) HMG-CoA Reductase Inhibitor take 1 tablet by mouth once daily atorvastatin (LIPITOR) 40 mg tablet Take 40 mg by mouth once daily. 0 Active Budesonide / formoterol (1 source) Corticosteroid, beta2-Adrenergic Agonist Start: 07-04-2015 budesonide-formoter ol (SYMBICORT) 80-4.5 mcg/actuation inhaler Inhale as instructed. 0 07/04/2015 Active 24 hr buPROPion hydrochloride 150 mg extended release oral tablet (3 sources) Aminoketone Start: 06-07-2020 take 1 tablet by mouth once daily buPROPion XL (WELLBUTRIN XL) 150 mg 24 hr tablet Take 1 tablet by mouth once daily. 30 tablet 1 06/07/2020 Active Comment on above: Take 1 tablet by jean th once daily. citalopram 20 mg oral tablet (1 source) Serotonin Reuptake Inhibitor take 1 tablet by mouth once daily citalopram (CELEXA) 20 mg tablet Take 20 mg by mouth once daily. 0 Active cyclobenzaprine hydrochloride 10 mg oral tablet (3 sources) Muscle Relaxant Start: 07-21-2022 take 1 tablet by mouth every eight hours as needed cyclobenzaprine (FLEXERIL) 10 mg tablet Take 1 tablet by mouth three times daily as needed for muscle spasm. 21 tablet 07/21/2022 Active Comment on above: Take 1 tablet by jean th three times daily as needed for muscle spasm. empagliflozin 10 mg oral tablet (1 source) Sodium-Glucose Cotransporter 2 Inhibitor take 1 tablet by mouth once daily JARDIANCE 10 mg tablet Take 10 mg by mouth once daily. 0 Active fluticasone propionate 0.05 mg/actuat metered dose nasal spray (1 source) Corticosteroid Start: 04-22-2024 take 2 spray(s) by mouth once daily fluticasone (FLONASE) 50 mcg/actuation nasal spray Indications: Sinus congestion Use 2 Sprays in each nostril once daily. Rinse mouth after use. 1 Each 0 04/22/2024 Active hydrOXYzine hydrochloride 25 mg oral tablet (3 sources) Antihistamine Start: 04-01-2020 take 1 tablet by mouth every six hours as needed hydrOXYzine HCl (ATARAX) 25 mg tablet Indications: Panic attacks , Rash and nonspecific skin eruption Take 1 tablet by mouth every 6 hours as needed for Itching/Rash or Anxiety. 40 tablet 04/01/2020 Active Comment on above: Take 1 tablet by jean every 6 hours as needed for Itching/Rash or Anxiety. levocetirizine dihydrochloride 5 mg oral tablet (1 source) Histamine-1 Receptor Antagonist take 1 tablet by mouth once daily levocetirizine 5 mg tablet Take 5 mg by mouth once daily. 0 Active lisinopril 40 mg oral tablet (3 sources) Angiotensin Converting Enzyme Inhibitor Start: 04-01-2020 take 1 tablet by mouth once daily lisinopril (ZESTRIL, PRINIVIL) 40 mg tablet Indications: Essential hypertension Take 1 tablet by mouth once daily. 90 tablet 04/01/2020 Active Comment on above: Take 1 tablet by jean th once daily. metFORMIN hydrochloride 500 mg oral tablet (3 sources) Biguanide Start: 06-07-2020 take 1 tablet by mouth twice daily metFORMIN (GLUCOPHAGE) 500 mg tablet Take 1 tablet by mouth twice daily. 180 tablet 1 06/07/2020 Active Comment on above: Take 1 tablet by jean th twice daily. 24 hr metoprolol succinate 50 mg extended release oral tablet (3 sources) beta-Adrenergic Lovely Start: 04-01-2020 take 1 tablet by mouth once daily metoprolol succinate ER (TOPROL XL) 50 mg 24 hr tablet Indications: Essential hypertension Take 1 tablet by mouth once daily. 90 tablet 04/01/2020 Active Comment on above: Take 1 tablet by jean th once daily. montelukast 10 mg oral tablet (1 source) Leukotriene Receptor Antagonist take 1 tablet by mouth once daily montelukast (SINGULAIR) 10 mg tablet Take 10 mg by mouth once daily. 0 Active pantoprazole 20 mg delayed release oral tablet (1 source) Proton Pump Inhibitor Start: 11-11-[address] (PROTONIX) 20 mg tablet once daily. 0 11/11/2015 Active PARoxetine hydrochloride 40 mg oral tablet (3 sources) Serotonin Reuptake Inhibitor Start: 04-01-2020 take 1 tablet by mouth once daily PARoxetine (PAXIL) 40 mg tablet Indications: Mild episode of recurrent major depressive disorder (HCC) Take 1 tablet by mouth once daily. 90 tablet 04/01/2020 Active Comment on above: Take 1 tablet by jean th once daily. traZODone hydrochloride 50 mg oral tablet (3 sources) Serotonin Reuptake Inhibitor Start: 04-01-2020 take 1 tablet by mouth once daily at bedtime traZODone (DESYREL) 50 mg tablet Indications: Mild episode of recurrent major depressive disorder (HCC) Take 1 tablet by mouth daily at bedtime. 90 tablet 04/01/2020 Active Comment on above: Take 1 tablet by jean th daily at bedtime. varenicline 1 mg oral tablet (1 source) Partial Cholinergic Nicotinic Agonist Start: 03-21-2024 take 1 tablet by mouth once varenicline (CHANTIX) 1 mg tablet Take 1 tablet by mouth every afternoon. 0 03/21/2024 Active Completed/Discontinued Medications Medication Drug Class(es) Dates Sig (Normalized) Sig (Original) ondansetron 4 mg disintegrating oral tablet (4 sources) Serotonin-3 Receptor Antagonist Start: 07-15-2020 End: 04-25-2024 take 1 tablet by mouth every six hours as needed ondansetron orally disintegrating (ZOFRAN ODT) 4 mg disintegrating tablet Take 1 tablet by mouth every 6 hours as needed for Nausea/Vomiting. 24 tablet 1 07/15/2020 04/22/2024 Discontinued Comment on above: Take 1 tablet by jean every 6 hours as needed for Nausea/Vomiting. predniSONE 10 mg oral tablet (4 sources) Start: 07-21-2022 End: 04-22-2024 predniSONE (DELTASONE) 10 mg tablet Take 4 tabs daily for 3 days, then 2 tabs daily for 3 days, then 1 tab daily for 3 days with food. 21 tablet 07/21/2022 04/22/2024 Discontinued Comment on above: Take 4 tabs daily fo r 3 days, then 2 tabs daily for 3 days, then 1 tab daily for 3 days with food. Problems Active Problems Problem Classification Problem Date Documented Date Episodic/Chronic Anxiety disorders (2 sources) Panic attack; Translations: [Panic disorder without agoraphobia] 06-10-2021 Chronic Diabetes mellitus without complication (3 sources) Type 2 diabetes mellitus without complication; Translations: [Type 2 diabetes mellitus without complications] Onset: 02-19-2016 02-19-2016 Chronic Essential hypertension (3 sources) Hypertensive disorder; Translations: [Essential (primary) hypertension] Onset: 10-09-2014 10-31-2014 Chronic Mood disorders (3 sources) Depressive disorder; Translations: [Depression] Onset: 08-15-2013 10-09-2014 Chronic Nausea and vomiting (1 source) Nausea; Translations: [Nausea] 04-22-2024 Episodic Nutritional deficiencies (3 sources) Vitamin D deficiency; Translations: [Vitamin D deficiency, unspecified] Onset: 01-30-2014 10-09-2014 Chronic Other congenital anomalies (3 sources) Bilateral accessory navicular bones; Translations: [Other congenital malformations of lower limb(s), including pelvic girdle] Onset: 08-31-2019 08-31-2019 Chronic Other lower respiratory disease (1 source) Wheezing; Translations: [Wheezing] 04-22-2024 Episodic Other non-traumatic joint disorders (2 sources) Hip pain; Translations: [Pain in left hip] Episodic Other upper respiratory disease (1 source) Congestion of nasal sinus; Translations: [Nasal congestion] 04-22-2024 Episodic Unclassified (2 sources) EXAM 06-10-2021 Comment on above: EXAM Past or Other Problems Problem Classification Problem Date Documented Da te Episodic/Chronic Diabetes or abnormal glucose tolerance complicating ; childbirth; or the puerperium (2 sources) and type 2 diabetes mellitus; Translations: [Pre-existing type 2 diabetes mellitus, in , first trimester] Onset: 06-24-2016 Resolved: 11-27-2016 11-27-2016 Chronic Malaise and fatigue (2 sources) Fatigue; Translations: [Other fatigue] Onset: 06-25-2014 Resolved: 11-27-2016 11-27-2016 Episodic Other aftercare (2 sources) Post-discharge follow-up; Translations: [Encounter for follow-up examination after completed treatment for conditions other than malignant neoplasm] Onset: 10-09-2014 Resolved: 11-27-2016 11-24-2021 Episodic Other connective tissue disease (3 sources) Tendinitis of bilateral posterior tibialis muscles; Translations: [Posterior tibial tendinitis, right leg] Onset: 08-31-2019 08-31-2019 Episodic Other connective tissue disease (3 sources) Tibialis posterior tendinitis ; Translations: [Posterior tibial tendinitis, unspecified leg] Onset: 02-13-2020 02-13-2020 Episodic Other gastrointestinal disorders (2 sources) Irritable bowel syndrome with diarrhea; Translations: [Irritable bowel syndrome with diarrhea] Onset: 06-24-2016 Resolved: 09-16-2018 09-16-2018 Chronic Other non-traumatic joint disorders (2 sources) Pain in elbow; Translations: [Pain in right elbow] Onset: 10-27-2018 Resolved: 02-14-2019 02-14-2019 Episodic Other skin disorders (2 sources) Eruption; Translations: [Rash and other nonspecific skin eruption] Onset: 07-17-2019 Resolved: 06-07-2020 06-07-2020 Episodic Other upper respiratory infections (2 sources) Sinusitis; Translations: [Chronic sinusitis, unspecified] Onset: 06-25-2014 Resolved: 11-27-2016 11-27-2016 Chronic Residual codes; unclassified (2 sources) Obstructive sleep apnea syndrome; Translations: [Obstructive sleep apnea (adult) (pediatric)] Onset: 10-09-2014 Resolved: 09-16-2018 09-16-2018 Chronic Residual codes; unclassified (3 sources) Tobacco use and exposure - finding; Translations: [Tobacco use] Onset: 09-26-2013 10-31-2014 Episodic Residual codes; unclassified (2 sources) Insomnia; Translations: [Insomnia, unspecified] Onset: 08-15-2013 Resolved: 09-16-2018 09-16-2018 Episodic Results Test Name Value Interpretation Reference Range Facil ity CNOVon 04-22-2024 CNOV Office Visit (UCWSTR ) JOSEPH RINCON ([id number]) 1975 F NFR Date Time Provider Department 04/22/24 1:30 PM ARETHA SCHOFIELD [facility] During your visit today, we recorded the following information about you: Temperature Pulse Respiration Blood pressure 97.4 degrees 115/minute 20/minute 120/84 Weight 75.8 kg Aretha Schofield APRN.FORMING MACHINE 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 04/22/2024 2:02 PM Signed Subjective Sinus Problem Associated symptoms include coughing, nausea and a sore throat. Pertinent negatives include no chills, fever, myalgias or vomiting. Joseph Rincon is a 49 year old female who presents with nasal congestion and post nasal drainage since yesterday. Has also had a cough and some wheezing. She states she woke up this morning and is over it . She denies fever. States she feels nausea due to PND. She used sudafed for symptoms. Review of Systems Constitutional: Negative for chills, fever and malaise/fatigue. HENT: Positive for sore throat. Negative for ear pain and sinus pain. Respiratory: Positive for cough and wheezing. Cardiovascular: Negative. Gastrointestinal: Positive for nausea. Negative for vomiting. Musculoskeletal: Negative for myalgias. BP 120/84 Pulse 115 Temp 36.3 ?C (97.4 ?F) Resp 20 Wt 75.8 kg (167 lb 1.7 oz) LMP 04/26/2019 SpO2 98% BMI 29.60 kg/m? PAST MEDICAL HISTORY Diagnosis Date Asthma Depression Hypertension 10/09/2014 Hypertriglyceridemia Insomnia Irritable bowel syndrome with diarrhea 06/24/2016 MOUNIKA (obstructive sleep apnea) mild 10/09/2014 Pancreatitis 2010 Recurrent. 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 MEDICATIONS citalopram (CELEXA) 20 mg tablet Take 20 mg by mouth once daily. varenicline (CHANTIX) 1 mg tablet Take 1 tablet by mouth every afternoon. JARDIANCE 10 mg tablet Take 10 mg by mouth once daily. budesonide-formoterol (SYMBICORT) 80-4.5 mcg/actuation inhaler Inhale as instructed. albuterol HFA (PROVENTIL HFA, VENTOLIN HFA) 90 mcg/actuation inhaler INHALE 2 (two) PUFFS every 4 hours as needed pantoprazole DR (PROTONIX) 20 mg tablet once daily. montelukast (SINGULAIR) 10 mg tablet Take 10 mg by mouth once daily. levocetirizine 5 mg tablet Take 5 mg by mouth once daily. atorvastatin (LIPITOR) 40 mg tablet Take 40 mg by mouth once daily. metFORMIN (GLUCOPHAGE) 500 mg tablet Take 1 tablet by mouth twice daily. buPROPion XL (WELLBUTRIN XL) 150 mg 24 hr tablet Take 1 tablet by mouth once daily. lisinopril (ZESTRIL, PRINIVIL) 40 mg tablet Take 1 tablet by mouth once daily. (Patient taking differently: Take 10 mg by mouth once daily.) metoprolol succinate ER (TOPROL XL) 50 mg 24 hr tablet Take 1 tablet by mouth once daily. (Patient taking differently: Take 25 mg by mouth once daily.) cyclobenzaprine (FLEXERIL) 10 mg tablet Take 1 tablet by mouth three times daily as needed for muscle spasm. (Patient not taking: Reported on 04/22/2024) predniSONE (DELTASONE) 10 mg tablet Take 4 tabs daily for 3 days, then 2 tabs daily for 3 days, then 1 tab daily for 3 days with food. (Patient not taking: Reported on 04/22/2024) ondansetron orally disintegrating (ZOFRAN ODT) 4 mg disintegrating tablet Take 1 tablet by mouth every 6 hours as needed for Nausea/Vomiting. (Patient not taking: Reported on 07/21/2022) PARoxetine (PAXIL) 40 mg tablet Take 1 tablet by mouth once daily. (Patient not taking: Reported on 04/22/2024) hydrOXYzine HCl (ATARAX) 25 mg tablet Take 1 tablet by mouth every 6 hours as needed for Itching/Rash or Anxiety. (Patient not taking: Reported on 04/22/2024) traZODone (DESYREL) 50 mg tablet Take 1 tablet by mouth daily at bedtime. (Patient not taking: Reported on 04/22/2024) amLODIPine (NORVASC) 10 mg tablet Take 1 tablet by mouth once daily. (Patient not taking: Reported on 04/22/2024) FAMILY HISTORY Problem Relation Age of Onset Osteoporosis Mother Cancer Mother uterine or cervix Hypertension Father Diabetes Paternal Grandmother Stroke Paternal Grandfather Hypertension Paternal Grandfather No Known Problems Brother Social History Tobacco Use Smoking status: Former Packs/day: 0.50 Years: 21.00 Additional pack years: 0.00 Total pack years: 10.50 Types: Cigarettes Start date: 11/29/1996 Quit date: 07/11/2020 Years since qu (more content not included)... Normal [facility] XR HIP GENERAL 3V PELV/AP/LA T LEFTon 07-21-2022 [facility] XR Pelvis and Hip - left AP and Lateral frogon 07-21-2022 IMPRESSION: Negative pelvis and left hip. Chemical Plant Technical Director: PAM Transcribe Date/Time: Jul 21 2022 7:27P Dictated by : BETINA MAGANA MD This examination was interpreted and the report reviewed and electronically signed by: BETINA MAGANA MD on Jul 21 2022 7:29PM [facility] DIVISION OF RADIOLOGY * * *Final Report* * * DATE OF EXAM: Jul 21 2022 7:24PM [id number] - XR HIP 3V PELV+ AP/LAT LT / PROCEDURE REASON: Hip pain, acute, left * * * * Physician Interpretation * * * * PELVIS AND LEFT HIP X-RAY SERIES HISTORY: Hip pain, acute, left COMPARISON: None available. TECHNIQUE: AP Pelvis, AP Hip and Frog Leg Lateral View of Hip RESULT: Hip joint spaces are preserved. No fracture or dislocation. DIVISION OF RADIOLOGY Provider, [facility] - 07/21/2022 * * *Final Report* * * DATE OF EXAM: Jul 21 2022 7:24PM [id number] - XR HIP 3V PELV+ AP/LAT LT / PROCEDURE REASON: Hip pain, acute, left * * * * Physician Interpretation * * * * PELVIS AND LEFT HIP X-RAY SERIES HISTORY: Hip pain, acute, left COMPARISON: None available. TECHNIQUE: AP Pelvis, AP Hip and Frog Leg Lateral View of Hip RESULT: Hip joint spaces are preserved. No fracture or dislocation. IMPRESSION IMPRESSION: Negative pelvis and left hip. Chemical Plant Technical Director: PAM Transcribe Date/Time: Jul 21 2022 7:27P Dictated by : BETINA MAGANA MD This examination was interpreted and the report reviewed and electronically signed by: BETINA MAGANA MD on Jul 21 2022 7:29PM EST [facility] Radiology Study observation (narrative) [facility] XR Pelvis and Hip - left AP and Lateral frogOrdered By: [facility]cf Provider on 07-21-2022 [facility] ALCOHOLon 06-10-2021 ALCOHOL Canceled Normal [facility] Comment on above: Order Comment: TEST ALCOHOL WAS CANCELLED, 06/10/2021 20:44 Result Comment: FOR MEDICAL USE ONLY. Performed By: #### A #### [place] [address] Provider Note - ED v2on 05-29 Provider Note - ED v2 Provider Note - ED v2: Chart Review: ED NOTES ED NOTES: ====HPI==== Patient a 46-year-old female who presents to the emergency department with a chief complaint of a panic attack. She states that she was being arrested for an OB I when she started having a panic attack. She does have a history of panic attacks. The police brought her in for medical clearance. She states that she has been drinking today but reports only having to drinks. No chest pain ====Review of Systems==== 10 point system review is negative except for those specifically mentioned in history of present illness ====Physical Exam==== Constitutional/General : Alert, patient appears intoxicated Head: Normocephalic and atraumatic. Eyes: PERRL, EOMI, conjunctive normal, sclera nonicteric, subconjunctival layer is pink. Mouth: Oropharynx clear, handling secretions, no trismus, no asymmetry of the posterior oropharynx or uvular edema Neck: Supple, full ROM, non tender to palpation in the midline, no stridor, no crepitus, no meningeal signs. Trachea at midline. Respiratory: Lungs clear to auscultation bilaterally, no wheezes, rales, or rhonchi, not in respiratory distress. Cardiovascular: Regular rate, regular rhythm, no murmurs, gallops, or rubs, 2+ distal pulses. Chest: normal chest wall movement GI: Abdomen soft, nontender, nondistended, no organomegaly, no palpable masses, no rebound, guarding, or rigidity. Musculoskeletal: Moves all extremities x4, warm and well perfused, no clubbing, cyanosis, or edema, cap refill <3 seconds Integument: Skin warm and dry, no rashes. Lymphatic: No lymphadenopathy noted. Neurologic: No focal deficits Psychiatric: Patient appears intoxicated, smells of alcohol, slurred speech ====ED Course and Medical Decision Making==== See MDM section for review of findings & plan of care. Portions of this note were dictated by speech recognition. An attempt at proof reading was made to minimize errors. Minor errors in vest baster may be present. Please call if questions.. HISTORY OF PRESENTING ILLNESS JOSEPH is a 46 year old Female and was seen by me at 10-Jun-2021 20:36 for a chief complaint of panic attack (Patient states she began to have a panic attack while being arrested for ANAND. Police at bedside. Patient states history of anxiety. Admits to alcohol use tonight.)(1). Triage Information: Most recent Vital Sign Value Date Temp (F): 96.9 06-10-2021 20:27 Temp (C): 36.1 06-10-2021 20:27 Heart Rate (beats/min): 91 06-10-2021 20:27 Respirations (breaths/min): 18 06-10-2021 20:27 SpO2 (%): 99 06-10-2021 20:27 BP Systolic (mm Hg): 125 06-10-2021 20: BP Diastolic (mm Hg): 92 06-10-2021 20:27 PAST MEDICAL HISTORY ATTESTATION: I have reviewed and confirmed nurse's/medic's notes for patient's medications, allergies, and medical, surgical, family and social history ALLERGIES/INTOLERANCES : No Known Allergies HEALTH HISTORY: No documented data. OUTPATIENT MEDICATIONS: Home Medications Review Status for Reconciliation: N/A Med Status: N/A No documented data. SIGNIFICANT EVENTS: No documented data. SECURITY INSPECTOR: Is : no(1) Is : no(1) RESULTS/VITAL SIGNS EKG INTERPRETATION #1: Impression: EKG shows NSR with a rate of [address] elevation or signs of ischemia MEDICAL DECISION MAKING/ED COURSE MDM/ED COURSE: Patient is afebrile and nontoxic-appearing. She presents brought in by the police. She states that she had a panic attack. She was pulled over for drunk driving. She smells intoxicated. She denies any other symptoms. She states that this feels like her normal panic attack which she sometimes has. She was given a dose of Vistaril here in the emergency department and discharged to the custody of the police. CLINICAL IMPRESSION Diagnosis/Annotation: ED Dx Name:Panic attack Code:F41.0 Disposition: discharged Type: home ATTESTATION CRITICAL CARE TIME Is this a critically ill patient: no Electronic Signatures: Catina Frederick (GERHARD) (Signed 10-Jun-2021 20:57) Authored: ED Notes, HPI, PMH, EKG, MDM/ED Course, Clinical Impression, Attestation, Chart Review, Scores Last Updated: 10-Jun-2021 20:57 by Catina Frederick (PAC) References: 1. Data Referenced From Triage - ED 10-Jun-2021 20:27 [facility] Triage - EDon 06-10-2021 Triage - ED Quick Triage: Are You no Have You Given In The Last 6 Weeksno Are You Currently Breastfeedingno The patient and/or guardian verbally acknowledges placement for services into the following (when Urgent Care Service hours are operating):emergency department Chart Review: ARRIVAL INFORMATION Mode of Arrival: law enforcement CHIEF COMPLAINT JOSEPH RINCON is a Female patient with a chief complaint of panic attack (Patient states she began to have a panic attack while being arrested for ANAND. Police at bedside. Patient states history of anxiety. Admits to alcohol use tonight.). Triage Date/Time: 10-Jun-2021 20:27 ALISATIR: 4 Pain Rating (0-10): 0 = None Vital Signs: Temperature: 96.9F ( 36.1C) Blood Pressure: 125/92 Mean: Heart Rate: 91 Respiratory Rate: 18 Pulse Oximetry: 99% Height: 5 feet 4 inches. 162.5 CM Weight: 160.2 pounds. Calculated 72.7 kg. (stated) Calculated BMI (kg/m2): 27.531 Calculated BSA (m2) 1.81 [place] Coma Scale: Best Eye Response: (E4) spontaneous Best Motor Response: (M6) obeys commands Best Verbal Response: (V5) oriented [place] Score: 15 Cough lasting greater than 3 weeks: no Allergies: no Patient has homicidal thoughts: no Risk Screens Suicide Risk Screen In the Past Month: Have you wished you were or wished you could go to sleep and not wake up no In the Past Month: Have you had any actual thoughts of killing yourself no In Your Lifetime: Have you ever done anything, started to do anything, or prepared to do anything to end your life no Patel Fall Scale Screening Has the patient fallen before (or is the patient in the ED as a result of a fall) has not had a fall Does the patient have an impaired gait does not have impaired gait Is the patient cognitively impaired not cognitively impaired Interventions: Patel Fall Interventions: LOW INTERVENTIONS: *patient oriented to surroundings and call system, * patient/family falls education completed and documented, *patients fall status communicated during bedside handoff, *whiteboard updated, *mode of toileting discussed with patient, *bed in low position with brakes locked, *call light in reach, * non-skid footwear TRAVEL HISTORY Travel History Coronavirus Screening: no exposure or symptoms Travel Exposure History: NO travel to International locations in the past 30 days PAIN Pain Scale Used: BRANDON Pain Rating (0-10): 0 = None Past Medical History: Past Medical History Reviewedyes Electronic Signatures: Rocky Hebert (RN) (Signed 10-Jun-2021 20:30) Entered: Risk Screens, Pain, Travel History, Chart Review, Scores, Past Medical History Authored: Quick Triage, Risk Screens, Pain, Travel History, Chart Review, Scores, Past Medical History Last Updated: 10-Jun-2021 20:30 by Rocky Hebert (ROSA) [facility] Vital Signs Date Time Vital Sign Value Performing Clinician Facility 04-22-2024 13:48-0400 Body mass index (BMI) [Ratio] 29.6 kg/m2 Aretha Schofield APRN.CNP Work Phone: [facility] 04-22-2024 13:48-0400 Body temperature 97.39 [degF] Aretha Schofield APRN.[facility] Work Phone: [facility] 04-22-2024 13:48-0400 Body weight 75.8 kg Aretha Schofield APRN.[facility] Work Phone: [facility] 04-22-2024 13:48-0400 Diastolic blood pressure 84 mm[Hg] Aretha Schofield APRN.FORMING MACHINE 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 Work Phone: [facility] 04-22-2024 13:48-0400 Heart rate 115 /min Aretha Schofield APRN.[facility] Work Phone: [facility] 04-22-2024 13:48-0400 Respiratory rate 20 /min Aretha Schofield APRN.[facility] Work Phone: [facility] 04-22-2024 13:48-0400 SaO2% (BldA) [Mass fraction] 98 % Aretha Praisler-Juan C ANTIQUE FURNITURE RESTORER.FORMING MACHINE 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 Work Phone: [facility] 04-22-2024 13:48-0400 Systolic blood pressure 120 mm[Hg] Arethacosmo Singhler-Wood ANTIQUE FURNITURE RESTORER.FORMING MACHINE 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 Work Phone: [facility] 07-21-2022 18:58-0400 Body temperature 99 [degF] Samantha Deleon ANTIQUE FURNITURE RESTORER.FORMING MACHINE 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 Work Phone: [facility] 07-21-2022 18:58-0400 Body weight 72.39 kg Samantha Deleon ANTIQUE FURNITURE RESTORER.FORMING MACHINE 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 Work Phone: [facility] 07-21-2022 18:58-0400 Diastolic blood pressure 84 mm[Hg] Samantha Deleon ANTIQUE FURNITURE RESTORER.FORMING MACHINE 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 Work Phone: [facility] 07-21-2022 18:58-0400 Heart rate 83 /min Samantha Deleon ANTIQUE FURNITURE RESTORER.FORMING MACHINE 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 Work Phone: [facility] 07-21-2022 18:58-0400 Respiratory rate 16 /min Samantha Deleon ANTIQUE FURNITURE RESTORER.FORMING MACHINE 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 Work Phone: [facility] 07-21-2022 18:58-0400 SaO2% (BldA) [Mass fraction] 98 % Samantha Deleon ANTIQUE FURNITURE RESTORER.FORMING MACHINE 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 Work Phone: [facility] 07-21-2022 18:58-0400 Systolic blood pressure 138 mm[Hg] Samantha Deleon ANTIQUE FURNITURE RESTORER.FORMING MACHINE 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 Work Phone: [facility] 06-10-2021 22:58-0400 Diastolic blood pressure 62 mm[Hg] No Pcp Required [facility] 06-10-2021 22:58-0400 Heart rate 88 /min No Pcp Required [facility] 06-10-2021 22:58-0400 Respiratory rate 16 /min No Pcp Required [facility] 06-10-2021 22:58-0400 SaO2% (BldA) [Mass fraction] 99 % No Pcp Required [facility] 06-10-2021 22:58-0400 Systolic blood pressure 105 mm[Hg] No Pcp Required [facility] 06-10-2021 22:27-0400 Body height 162.5 cm No Pcp Required [facility] 06-10-2021 22:27-0400 Body temperature 96.98 [degF] No Pcp Required [facility] 06-10-2021 22:27-0400 Body weight 72.7 kg No Pcp Required [facility] Encounters Encounter Date Encounter Type Care Provider Facility Start: 04-22-2024 End: 04-22-2024 ambulatory [facility] Facility:[facility] Start: 04-22-2024 End: 04-22-2024 Patient encounter procedure Aretha Schofield APRN.[facility] Work Phone: [facility] Comment on above: Sinus congestion (Pr imary Dx); Wheezing; Nausea Start: 07-21-2022 End: 07-21-2022 Subsequent hospital visit by physician X[facility] Work Phone: Radiology Comment on above: Hip pain, acute, lef t [M25.552] Start: 07-21-2022 End: 07-21-2022 Patient encounter procedure Samantha Deleon APRN.[facility] Work Phone: [facility] Comment on above: Hip pain, acute, lef t (Primary Dx) Start: 06-10-2021 End: 06-10-2021 Emergency department patient visit [facility] Emergency 07 Procedures Date Procedure Procedure Detail Performing Clinician Start: 07-21-2022 Radex hip unilateral with pelvis 2-3 views Samantha Deleon ANTIQUE FURNITURE RESTORER.[facility] Work Phone: Start: 06-21-2020 Mammography Samantha cifuentes ANTIQUE FURNITURE RESTORER.FORMING MACHINE 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 Work Phone: Start: 09-11-2015 Colonoscopy Samantha cifuentes ANTIQUE FURNITURE RESTORER.FORMING MACHINE 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 Work Phone: Plan of Treatment Date Care Activity Detail Author Start: 03-03-2034 Urine microalbumin profile DTa P,Tdap,Td Vaccine (3 - Td or Tdap) [facility] Start: 07-30-2024 Covid-19 Vaccine ( season) Covid-19 Vaccine ( season) [facility] Start: 07-30-2024 Influenza vaccination C [facility] Start: 06-07-2024 Hepatitis B Vaccine (3 of 3 - Hep B Twinrix 3-dose series) Hepatitis B Vaccine (3 of 3 - Hep B Twinrix 3-dose series) [facility] Start: 10-26-2023 HPV TESTING HPV TESTING [facility] Start: 10-26-2023 PAP TESTING PAP TESTING [facility] Start: 10-26-2023 Screening for malign ant neoplasm of cervix [facility] Start: 09-26-2023 Urine microalbumin profile DTA P,TDAP,TD (2 - Td or Tdap) [facility] Start: 07-30-2022 Influenza vaccination INFLUENZA (#1) [facility] Start: 2022 COLOGUARD (FIT-DNA) COLOGUARD (FIT-D NA) [facility] Start: 2022 Colonoscopy COLONOSCOPY [facility] Start: 2022 COLORECTAL CANCER SCREENING COLORECTAL CANCER SCREENING [facility] Start: [address] COLONOGRAPHY [facility] Start: 2022 FECAL OCCULT BLOOD FECAL OCCULT BLOO D [facility] Start: 2022 Screening for malign ant neoplasm of colon [facility] Start: 2022 SIGMOIDOSCOPY SIGMOIDOSCOPY [facility] Start: 07-15-2021 ANNUAL PCP TEAM SALES AUDIT CLERK TRICIA DISEASE VISIT ANNUAL PCP TEAM CHRONIC DISEASE VISIT [facility] Start: 07-03-2021 Screening for malign ant neoplasm of breast Mammogram Screening [facility] Start: 06-21-2021 Hepatitis B screening URINE AL BUMIN:CREATININE RATIO [facility] Start: 06-21-2021 Hepatitis B surface antibody level LDL CHOLESTEROL [facility] Start: 06-21-2021 Mammography MAMMOGRAM [facility] Start: 05-19-2021 COVID-19 VACCINE (3 - Booster for Pfizer series) COVID-19 VACCINE (3 - Booster for Pfizer series) [facility] Start: 11-19-2020 Hemoglobin A1c measurement HbA1C [facility] Start: 11-19-2020 Hemoglobin A1c/Hemoglobin.total in Blood HBA1C [facility] Start: 07-19-2020 3 comp foot exam completed DIABETIC FOOT EXAM [facility] Start: 07-19-2020 Diabetic foot examination Diabetic F oot Exam [facility] Start: 12-26-2019 Glaucoma screening Dilated Retinal E xam [facility] Start: 12-26-2019 Hepatitis C antibody , confirmatory test DILATED RETINAL EXAM [facility] Start: 10-20-2014 PNEUMOCOCCAL (2 - PCV) PNEUMOCOCCAL (2 - PCV) [facility] Start: 1995 Anxiety Screening Anxiety Screening [facility] Start: 1995 BP CONTROLLED (<130/80) BP CONTROLLE D (<130/80) [facility] Start: 1995 HEPATITIS C SCREENING HEPATITIS C [facility] Start: 1995 Hepatitis C screening Hepatitis C [facility] Start: 1995 HIV SCREENING HIV SCREENING [facility] Start: 1995 HIV screening HIV Screening [facility] Start: 1977 HEPATITIS B (1 of 3 - 3-dose series) HEPATITIS B (1 of 3 - 3-dose series) [facility] Immunizations Immunization Date Immunization Notes Care Provider Juany griffith 10-16-2022 influenza virus vacc ine, unspecified formulation Aretha Schofield ANTIQUE FURNITURE RESTORER.[facility] Work Phone: [facility] 09-16-2018 influenza, injectabl e, quadrivalent, contains preservative Samantha Deleon ANTIQUE FURNITURE RESTORER.[facility] Work Phone: [facility] Work Phone: 11-19-2015 influenza, injectabl e, quadrivalent, contains preservative Samantha Deleon ANTIQUE FURNITURE RESTORER.[facility] Work Phone: [facility] 10-02-2014 influenza, seasonal, injectable Samantha Deleon ANTIQUE FURNITURE RESTORER.FORMING MACHINE 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 Work Phone: [facility] Work Phone: 10-20-2013 pneumococcal polysaccharide vaccine, 23 valent Samantha Deleon ANTIQUE FURNITURE RESTORER.[facility] Work Phone: [facility] Work Phone: 09-26-2013 tetanus toxoid, redu lenin diphtheria toxoid, and acellular pertussis vaccine, adsorbed Samantha Deleon ANTIQUE FURNITURE RESTORER.[facility] Work Phone: [facility] 09-15-2013 influenza virus vacc ine, unspecified formulation Samantha Adrienne ANTIQUE FURNITURE RESTORER.[facility] Work Phone: [facility] Work Phone: Payers Date Payer Category Payer Unknown 2022 Unknown [id number] Social History Date Type Detail Facility [facility] Tobacco smoking consumption unknown [facility] Start: 07-21-2022 Tobacco smoking status NHIS Ex-smoker [facility] Start: 11-29-1996 End: 07-11-2020 History of tobacco use Current smoker [facility] Start: 11-29-1996 End: 07-11-2020 History of tobacco use Cigarette Smoker [facility] Start: 11-04-2020 End: 07-21-2022 Cigarettes smoked current (pack per day) - Reported 0.5 [facility] Start: 07-21-2022 Tobacco use and exposure Smokeless tobacco non-user [facility] Start: 07-21-2022 End: 04-22-2024 Alcohol intake Current drinker of alcohol (finding) [facility] Start: 06-05-2020 End: 08-01-2020 History SDOH Alcohol Frequency 3 [facility] Start: 06-05-2020 End: 08-01-2020 History SDOH Alcohol Std Drinks 1 [facility] Start: 06-05-2020 End: 08-01-2020 History SDOH Alcohol Binge 2 [facility] Start: 09-16-2018 History SDOH 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 [facility] Start: 01-15-2020 History SDOH Social Connections Living 8 [facility] Start: 06-05-2020 History SDOH Physical Activity DPW 0 [facility] Start: 07-01-2020 History SDOH Financial 5 [facility] Start: 01-14-2020 Education 12 [facility] Start: 07-21-2022 Tobacco Comment stopped 3 weeks ago [facility] Start: 1977 Sex Assigned At Female [facility] Start: 06-05-2020 End: 11-04-2020 Social connection and isolation panel [facility] Frequency of Communication with Friends and Family Not on file [facility] Do you belong to any clubs or organizations such as latter-day groups, unions, fraternal or athletic groups, or school groups? No [facility] How often to you hav e a drink containing alcohol? 2-4 times a month [facility] How many standard dr inks containing alcohol do you have on a typical day? 1 or 2 [facility] How often do you hav e 6 or more drinks on 1 occasion? Less than monthly [facility] Do you feel stress - tense, restless, nervous, or anxious, or unable to sleep at night because your mind is troubled all the time - these days [OSQ] To some extent [facility] (I/We) worried wheth er (my/our) food would run out before (I/we) got money to buy more. Never true [facility] Start: 07-15-2020 Gender identity Identifies as female gender (finding) [facility] Start: 07-15-2020 Sexual orientation Heterosexual (finding) [facility] Clinical Notes 07-17-2019 to 04-22-2024 Patient InstructionsAretha Schofield APRN.[facility] - 04/22/2024 1:56 PM EDTPatient InstructionsSabrina Hairston RT(R) - 07/21/2022 7:20 PM EDTJereva Deleon APRN.FORMING MACHINE 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 - 07/21/2022 7:10 PM EDT Note Date & Type Note Facility 04-22-2024 Note HNO ID: [id number] Author: ARETHA SCHOFIELD APRN.[facility] Service: ? Author Type: Nurse Practitioner Type: Progress Notes Filed: 04/22/2024 14:02 Note Text: Subjective Sinus Problem Associated symptoms include coughing, nausea and a sore throat. Pertinent negatives include no chills, fever, myalgias or vomiting. Joseph Rincon is a 49 year old female who presents with nasal congestion and post nasal drainage since yesterday. Has also had a cough and some wheezing. She states she woke up this morning and is over it . She denies fever. States she feels nausea due to PND. She used sudafed for symptoms. Review of Systems Constitutional: Negative for chills, fever and malaise/fatigue. HENT: Positive for sore throat. Negative for ear pain and sinus pain. Respiratory: Positive for cough and wheezing. Cardiovascular: Negative. Gastrointestinal: Positive for nausea. Negative for vomiting. Musculoskeletal: Negative for myalgias. BP 120/84 Pulse 115 Temp 36.3 ?C (97.4 ?F) Resp 20 Wt 75.8 kg (167 lb 1.7 oz) LMP 04/26/2019 SpO2 98% BMI 29.60 kg/m? PAST MEDICAL HISTORY Diagnosis Date Asthma Depression Hypertension 10/09/2014 Hypertriglyceridemia Insomnia Irritable bowel syndrome with diarrhea 06/24/2016 MOUNIKA (obstructive sleep apnea) mild 10/09/2014 Pancreatitis 2010 Recurrent. Pseudocyst of pancreas 2011 aspirated Tobacco use 09/26/2013 Type 2 diabetes mellitus without complication (HCC) 02/19/2016 Vitamin D deficiency PAST SURGICAL HISTORY Procedure Laterality Date CHOLECYSTECTOMY 02/2011 laparoscopic COLONOSCOPY FLX DX W/COLLJ SPEC WHEN PFRMD 07/18/2014 Colonoscopy COLONOSCOPY FLX DX W/COLLJ SPEC WHEN PFRMD 09/11/15 Colonoscopy EGD EUS GEN ANES 07/21/2012 FNA pseudocyst ESOPHAGOGASTRODUODENOSCOPY TRANSORAL DIAGNOSTIC 07/18/2014 EGD PAST SURGICAL HISTORY OF 2004 dental extraction PAST SURGICAL HISTORY OF 2011 drainage of pancreatic cyst ALLERGIES Patient has no known allergies. MEDICATIONS citalopram (CELEXA) 20 mg tablet Take 20 mg by mouth once daily. varenicline (CHANTIX) 1 mg tablet Take 1 tablet by mouth every afternoon. JARDIANCE 10 mg tablet Take 10 mg by mouth once daily. budesonide-formoterol (SYMBICORT) 80-4.5 mcg/actuation inhaler Inhale as instructed. albuterol HFA (PROVENTIL HFA, VENTOLIN HFA) 90 mcg/actuation inhaler INHALE 2 (two) PUFFS every 4 hours as needed pantoprazole DR (PROTONIX) 20 mg tablet once daily. montelukast (SINGULAIR) 10 mg tablet Take 10 mg by mouth once daily. levocetirizine 5 mg tablet Take 5 mg by mouth once daily. atorvastatin (LIPITOR) 40 mg tablet Take 40 mg by mouth once daily. metFORMIN (GLUCOPHAGE) 500 mg tablet Take 1 tablet by mouth twice daily. buPROPion XL (WELLBUTRIN XL) 150 mg 24 hr tablet Take 1 tablet by mouth once daily. lisinopril (ZESTRIL, PRINIVIL) 40 mg tablet Take 1 tablet by mouth once daily. (Patient taking differently: Take 10 mg by mouth once daily.) metoprolol succinate ER (TOPROL XL) 50 mg 24 hr tablet Take 1 tablet by mouth once daily. (Patient taking differently: Take 25 mg by mouth once daily.) cyclobenzaprine (FLEXERIL) 10 mg tablet Take 1 tablet by mouth three times daily as needed for muscle spasm. (Patient not taking: Reported on 04/22/2024) predniSONE (DELTASONE) 10 mg tablet Take 4 tabs daily for 3 days, then 2 tabs daily for 3 days, then 1 tab daily for 3 days with food. (Patient not taking: Reported on 04/22/2024) ondansetron orally disintegrating (ZOFRAN ODT) 4 mg disintegrating tablet Take 1 tablet by mouth every 6 hours as needed for Nausea/Vomiting. (Patient not taking: Reported on 07/21/2022) PARoxetine (PAXIL) 40 mg tablet Take 1 tablet by mouth once daily. (Patient not taking: Reported on 04/22/2024) hydrOXYzine HCl (ATARAX) 25 mg tablet Take 1 tablet by mouth every 6 hours as needed for Itching/Rash or Anxiety. (Patient not taking: Reported on 04/22/2024) traZODone (DESYREL) 50 mg tablet Take 1 tablet by mouth daily at bedtime. (Patient not taking: Reported on 04/22/2024) amLODIPine (NORVASC) 10 mg tablet Take 1 tablet by mouth once daily. (Patient not taking: Reported on 04/22/2024) FAMILY HISTORY Problem Relation Age of Onset Osteoporosis Mother Cancer Mother uterine or cervix Hypertension Father Diabetes Paternal Grandmother Stroke Paternal Grandfather Hypertension Paternal Grandfather No Known Problems Brother Social History Tobacco Use Smoking status: Former Packs/day: 0.50 Years: 21.00 Additional pack years: 0.00 Total pack years: 10.50 Types: Cigarettes Start date: 11/29/1996 Quit date: 07/11/2020 Years since quittin.7 Smokeless tobacco: Never Tobacco comments: stopped 3 weeks ago Substance Use Topics Alcohol use: Yes Alcohol/week: 1.3 standard drinks of alcohol Types: 1 Mixed Drinks per week Comment: in recovery since 2017 Drug use: No Comment: No drugs Objective Physical Exam (more content not included)... [facility] 04-22-2024 Instructions Aretha Schofield APRN.FORMING MACHINE 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 - 04/22/2024 2:02 PM EDT ASSESSMENT/PLAN: 1. Sinus congestion - ICD9: 478.19, ICD10: R09.81 (primary diagnosis) - FLUTICASONE PROPIONATE 50 MCG/ACTUATION NASAL SPRAY,SUSPENSION - likely due to allergies or viral infection, exam or duration of symptoms does not support treatment with antibiotics 2. Wheezing - ICD9: 786.07, ICD10: R06.2 - PREDNISONE 10 MG TABLET 3. Nausea - ICD9: 787.02, ICD10: R11.0 - ONDANSETRON 4 MG DISINTEGRATING TABLET - Follow-up with your PCP in 3-5 days if symptoms have not improved or sooner if symptoms worsen - Discussed red flags and need for immediate medical evaluation if any occur. - Discussed supportive care treatment with fluids, rest and analgesia. - Discussed expected course of illness Aretha Schofield APRN.FORMING MACHINE 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 documented in this encounter [facility] 04-22-2024 History of Present illness Narrative Subjective Sinus Problem Associated symptoms include coughing, nausea and a sore throat. Pertinent negatives include no chills, fever, myalgias or vomiting. Joseph Rincon is a 49 year old female who presents with nasal congestion and post nasal drainage since yesterday. Has also had a cough and some wheezing. She states she woke up this morning and is over it . She denies fever. States she feels nausea due to PND. She used sudafed for symptoms. Review of Systems Constitutional: Negative for chills, fever and malaise/fatigue. HENT: Positive for sore throat. Negative for ear pain and sinus pain. Respiratory: Positive for cough and wheezing. Cardiovascular: Negative. Gastrointestinal: Positive for nausea. Negative for vomiting. Musculoskeletal: Negative for myalgias. BP 120/84 Pulse 115 Temp 36.3 C (97.4 F) Resp 20 Wt 75.8 kg (167 lb 1.7 oz) LMP 04/26/2019 SpO2 98% BMI 29.60 kg/m PAST MEDICAL HISTORY Diagnosis Date Asthma Depression Hypertension 10/09/2014 Hypertriglyceridemia Insomnia Irritable bowel syndrome with diarrhea 06/24/2016 MOUNIKA (obstructive sleep apnea) mild 10/09/2014 Pancreatitis 2010 Recurrent. 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 MEDICATIONS citalopram (CELEXA) 20 mg tablet Take 20 mg by mouth once daily. varenicline (CHANTIX) 1 mg tablet Take 1 tablet by mouth every afternoon. JARDIANCE 10 mg tablet Take 10 mg by mouth once daily. budesonide-formoterol (SYMBICORT) 80-4.5 mcg/actuation inhaler Inhale as instructed. albuterol HFA (PROVENTIL HFA, VENTOLIN HFA) 90 mcg/actuation inhaler INHALE 2 (two) PUFFS every 4 hours as needed pantoprazole DR (PROTONIX) 20 mg tablet once daily. montelukast (SINGULAIR) 10 mg tablet Take 10 mg by mouth once daily. levocetirizine 5 mg tablet Take 5 mg by mouth once daily. atorvastatin (LIPITOR) 40 mg tablet Take 40 mg by mouth once daily. metFORMIN (GLUCOPHAGE) 500 mg tablet Take 1 tablet by mouth twice daily. buPROPion XL (WELLBUTRIN XL) 150 mg 24 hr tablet Take 1 tablet by mouth once daily. lisinopril (ZESTRIL, PRINIVIL) 40 mg tablet Take 1 tablet by mouth once daily. (Patient taking differently: Take 10 mg by mouth once daily.) metoprolol succinate ER (TOPROL XL) 50 mg 24 hr tablet Take 1 tablet by mouth once daily. (Patient taking differently: Take 25 mg by mouth once daily.) cyclobenzaprine (FLEXERIL) 10 mg tablet Take 1 tablet by mouth three times daily as needed for muscle spasm. (Patient not taking: Reported on 04/22/2024) predniSONE (DELTASONE) 10 mg tablet Take 4 tabs daily for 3 days, then 2 tabs daily for 3 days, then 1 tab daily for 3 days with food. (Patient not taking: Reported on 04/22/2024) ondansetron orally disintegrating (ZOFRAN ODT) 4 mg disintegrating tablet Take 1 tablet by mouth every 6 hours as needed for Nausea/Vomiting. (Patient not taking: Reported on 07/21/2022) PARoxetine (PAXIL) 40 mg tablet Take 1 tablet by mouth once daily. (Patient not taking: Reported on 04/22/2024) hydrOXYzine HCl (ATARAX) 25 mg tablet Take 1 tablet by mouth every 6 hours as needed for Itching/Rash or Anxiety. (Patient not taking: Reported on 04/22/2024) traZODone (DESYREL) 50 mg tablet Take 1 tablet by mouth daily at bedtime. (Patient not taking: Reported on 04/22/2024) amLODIPine (NORVASC) 10 mg tablet Take 1 tablet by mouth once daily. (Patient not taking: Reported on 04/22/2024) FAMILY HISTORY Problem Relation Age of Onset Osteoporosis Mother Cancer Mother uterine or cervix Hypertension Father Diabetes Paternal Grandmother Stroke Paternal Grandfather Hypertension Paternal Grandfather No Known Problems Brother Social History Tobacco Use Smoking status: Former Packs/day: 0.50 Years: 21.00 Additional pack years: 0.00 Total pack years: 10.50 Types: Cigarettes Start date: 11/29/1996 Quit date: 07/11/2020 Years since quittin.7 Smokeless tobacco: Never Tobacco comments: stopped 3 weeks ago Substance Use Topics Alcohol use: Yes Alcohol/week: 1.3 standard drinks of alcohol Types: 1 Mixed Drinks per week 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 Constitutional: General: She is not in acute distress. Appearance: Normal appearance. She is not ill-appearing. HENT: Right Ear: Tympanic membrane, ear canal and external ear normal. Left Ear: Tympanic membrane, ear canal and external ear normal. Nose: Congestion and rhinorrhea present. Mouth/Throat: Mouth: Mucous membranes are moist. Pharynx: Oropharynx is clear. Uvula midline. No oropharyngeal exudate or posterior oropharyngeal erythema. Cardiovascular: Rate and Rhythm: Normal rate and regular rhythm. Heart sounds: Normal heart sounds. Pulmonary: Effort: Pulmonary effort is normal. No respiratory distress. Breath sounds: Examination of the right-upper field reveals wheezing. Examination of the left-upper field reveals wheezing. Wheezing present. No rales. Musculoskeletal: Cervical back: Neck supple. Lymphadenopathy: Cervical: No cervical adenopathy. Skin: General: Skin is warm and dry. Findings: No erythema or rash. Neurological: Mental Status: She is alert. ASSESSMENT/PLAN: 1. Sinus congestion - ICD9: 478.19, ICD10: R09.81 (primary diagnosis) - FLUTICASONE PROPIONATE 50 MCG/ACTUATION NASAL SPRAY,SUSPENSION - likely due to allergies or viral infection, exam or duration of symptoms does not support treatment with antibiotics 2. Wheezing - ICD9: 786.07, ICD10: R06.2 - PREDNISONE 10 MG TABLET 3. Nausea - ICD9: 787.02, ICD10: R11.0 - ONDANSETRON 4 MG DISINTEGRATING TABLET - Follow-up with your PCP in 3-5 days if symptoms have not improved or sooner if symptoms worsen - Discussed red flags and need for immediate medical evaluation if any occur. - Discussed supportive care treatment with fluids, rest and analgesia. - Discussed expected course of illness Aretha Schofield APRN.FORMING MACHINE 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 documented in this encounter [facility] 07-21-2022 Instructions Samantha Deleon APRN.EVERETT - 07/21/2022 7:38 PM EDT SCIATICA: Your exam shows you have sciatica, a condition most often seen in patients with disc disease of the lower back. Sciatica causes pain to radiate from the lower back or buttock area down the leg. It results from pressure on nerve roots coming out of the spine when a disc deteriorates and pushes to one side. Often there is a history of back problems. In most cases sciatica improves greatly with conservative treatment. Most patients with it are completely better after 2-4 weeks of bed rest and other supportive care. Bed rest reduces the disc pressure greatly; sitting is the worst position since the pressure on the disc is over 5 times greater than it is while lying down. You should avoid bending, lifting, and all other activities which make the problem worse. After the pain improves, you may continue with normal activity, taking brief periods for bed rest throughout the day until you are back to normal. Aspirin, ibuprofen, or other anti-inflammatory drugs are often used to help control pain. Muscle relaxants may help by relieving spasm and providing mild sedation. Cold or heat therapy and massage may also give significant relief. Spinal manipulation is not recommended because it can increase the degree of disc protrusion. Surgery is reserved for patients that do not improve with conservative treatment, or who have signs of severe nerve root pressure. You should see your doctor for follow up care as recommended. A program for back injury rehabilitation with stretching and strengthening exercises is an important part of management. Please call your doctor, a back specialist, or the emergency room right away if you notice increased pain, weakness, or numbness in your legs, or if you have any difficulty with bladder or bowel control. documented in this encounter [facility] 07-21-2022 History of Present illness Narrative Radiology Service Progress Note PATIENT NAME: Joseph Rincon DATE OF SERVICE: July 21, 2022 TIME: 7:16 PM PATIENT IDENTITY VERIFICATION COMPLETED USING TWO (2) IDENTIFIERS: Name and Date of confirmed by patient verbally. FALL SCREENING: Has the patient had 2 falls in the last year or 1 fall with injury or currently using an Ambulatory Assistive Device (Walker, Cane, Wheelchair, Crutches, etc.)? No PATIENT GENDER DATA: Female. status: : No status: NO. PATIENT RELEVANT IMPLANT DATA REVIEWED: Not Applicable RADIOLOGY DEPARTMENT: General X-ray: Exam(s) Completed: Pelvis X-Ray: Pelvis with Hip Left PERIPHERAL IV DATA: Not applicable SIGNED BY: RT Bob(R) July 21, 2022 7:16 PM documented in this encounter [facility] 07-21-2022 History of Present illness Narrative This note was created using NoteWriter. Subjective Joseph Rincon is a 47 year old female. 47 year old female with PMH HTN and DM presents for left hip pain. Acute onset 3 days ago Left hip Denies trauma or injury Sharp and aching States that it seems to be worse at night, can't get comfortable Denies skin rash or lesions Denies prior history of same. Denies difficulty walking, inability to ambulate, history of IV drug usage. 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 The history is provided by the patient. No educational speech language clinician was used. Musculoskeletal Problem This is a new problem. The current episode started in the past 7 days. The problem occurs constantly. The problem has been unchanged. Pertinent negatives include no abdominal pain, anorexia, arthralgias, change in bowel habit, chest pain, chills, congestion, coughing, diaphoresis, fatigue, fever, headaches, joint swelling, myalgias, nausea, neck pain, numbness, rash, sore throat, swollen glands, urinary symptoms, vertigo, visual change, vomiting or weakness. Nothing aggravates the symptoms. She has tried nothing for the symptoms. The treatment provided no relief. PAST MEDICAL HISTORY Diagnosis Date Asthma Depression Hypertension 10/09/2014 Hypertriglyceridemia Insomnia Irritable bowel syndrome with diarrhea 06/24/2016 MOUNIKA (obstructive sleep apnea) mild 10/09/2014 Pancreatitis 2010 Recurrent. 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 MEDICATIONS PARoxetine (PAXIL) 40 mg tablet Take 1 tablet by mouth once daily. hydrOXYzine HCl (ATARAX) 25 mg tablet Take 1 tablet by mouth every 6 hours as needed for Itching/Rash or Anxiety. traZODone (DESYREL) 50 mg tablet Take 1 tablet by mouth daily at bedtime. lisinopril (ZESTRIL, PRINIVIL) 40 mg tablet Take 1 tablet by mouth once daily. amLODIPine (NORVASC) 10 mg tablet Take 1 tablet by mouth once daily. metoprolol succinate ER (TOPROL XL) 50 mg 24 hr tablet Take 1 tablet by mouth once daily. cyclobenzaprine (FLEXERIL) 10 mg tablet Take 1 tablet by mouth three times daily as needed for muscle spasm. predniSONE (DELTASONE) 10 mg tablet Take 4 tabs daily for 3 days, then 2 tabs daily for 3 days, then 1 tab daily for 3 days with food. ondansetron orally disintegrating (ZOFRAN ODT) 4 mg disintegrating tablet Take 1 tablet by mouth every 6 hours as needed for Nausea/Vomiting. (Patient not taking: Reported on 07/21/2022) metFORMIN (GLUCOPHAGE) 500 mg tablet Take 1 tablet by mouth twice daily. (Patient not taking: Reported on 07/21/2022) buPROPion XL (WELLBUTRIN XL) 150 mg 24 hr tablet Take 1 tablet by mouth once daily. (Patient not taking: Reported on 07/21/2022) FAMILY HISTORY Problem Relation Age of Onset Osteoporosis Mother Cancer Mother uterine or cervix Hypertension Father Diabetes Paternal Grandmother Stroke Paternal Grandfather Hypertension Paternal Grandfather No Known Problems Brother Social History Tobacco Use Smoking status: Former Packs/day: 0.50 Years: 21.00 Pack years: 10.50 Types: Cigarettes Start date: 11/29/1996 Quit date: 07/11/2020 Years since quittin.0 Smokeless tobacco: Never Tobacco comments: stopped 3 weeks ago Substance Use Topics Alcohol use: Yes Alcohol/week: 1.3 standard drinks Types: 1 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 HENT: Negative for congestion and sore throat. Respiratory: Negative for apnea, cough, choking and chest tightness. Cardiovascular: Negative for chest pain. Gastrointestinal: Negative for abdominal pain, anorexia, change in bowel habit, nausea and vomiting. Genitourinary: Negative for decreased urine volume, difficulty urinating, dyspareunia, vaginal bleeding and vaginal discharge. Musculoskeletal: Negative for arthralgias, joint swelling, myalgias and neck pain. Skin: Negative for color change, pallor and rash. Allergic/Immunologic: Negative for environmental allergies, food allergies and immunocompromised state. Neurological: Negative for dizziness, vertigo, facial asymmetry, weakness, numbness and headaches. Hematological: Negative for adenopathy. Does not bruise/bleed easily. Psychiatric/Behavioral: Negative for agitation and behavioral problems. Objective BP 138/84 Pulse 83 Temp 37.2 C (99 F) (Tympanic) Resp 16 Wt 72.4 kg (159 lb 9.6 oz) LMP 04/26/2019 SpO2 98% BMI 28.27 kg/m Physical Exam Vitals and nursing note reviewed. Constitutional: General: She is not in acute distress. Appearance: Normal appearance. She is normal weight. She is not ill-appearing, toxic-appearing or diaphoretic. HENT: Head: Normocephalic and atraumatic. Right Ear: Ear canal and external ear normal. Left Ear: Ear canal and external ear normal. Nose: Nose normal. No congestion or rhinorrhea. Mouth/Throat: Mouth: Mucous membranes are moist. Pharynx: No oropharyngeal exudate or posterior oropharyngeal erythema. Eyes: General: Right eye: No discharge. Left eye: No discharge. Extraocular Movements: Extraocular movements intact. Conjunctiva/sclera: Conjunctivae normal. Pupils: Pupils are equal, round, and reactive to light. Cardiovascular: Rate and Rhythm: Normal rate and regular rhythm. Pulses: Normal pulses. Heart sounds: Normal heart sounds. No murmur heard. No friction rub. Pulmonary: Effort: Pulmonary effort is normal. No respiratory distress. Breath sounds: Normal breath sounds. No stridor. No wheezing, rhonchi or rales. Chest: Chest wall: No tenderness. Abdominal: General: Abdomen is flat. There is no distension. Palpations: Abdomen is soft. There is no mass. Tenderness: There is no abdominal tenderness. There is no right CVA tenderness, left CVA tenderness, guarding or rebound. Hernia: No hernia is present. Musculoskeletal: General: Tenderness present. No swelling, deformity or signs of injury. Normal range of motion. Cervical back: Normal range of motion and neck supple. No rigidity. Right lower leg: No edema. Left lower leg: No edema. Comments: Left SI joint TTP +straight leg raise No midline cervical, thoracic or lumbar midline Ambulatory in exam room +neuro +sensation Lymphadenopathy: Cervical: No cervical adenopathy. Skin: General: Skin is warm and dry. Coloration: Skin is not jaundiced or pale. Findings: No bruising, erythema, lesion or rash. Neurological: General: No focal deficit present. Mental Status: She is alert and oriented to person, place, and time. Cranial Nerves: No cranial nerve deficit. Sensory: No sensory deficit. Motor: No weakness. Coordination: Coordination normal. Gait: Gait normal. Psychiatric: Mood and Affect: Mood normal. Behavior: Behavior normal. Thought Content: Thought content normal. Judgment: Judgment normal. Assessment and Plan ASSESSMENT/PLAN: 1. 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 documented in this encounter [facility] 07-17-2019 History of Past i llness Narrative Problem Noted Date Resolved Date Rash and nonspecific skin eruption 07/17/2019 06/07/2020 Pain in right elbow 10/27/2018 02/14/2019 with type 2 diabetes mellitus in first trimester 06/24/2016 11/27/2016 Irritable bowel syndrome with diarrhea 6 09/16/2018 MOUNIKA (obstructive sleep apnea) mild 10/09/2014 09/16/2018 Last Assessment & Plan: She does not feel rested when she wakes up but is just not getting the test done Hospital discharge follow-up 10/09/2014 Overview: Patient was admitted Last Assessment & Plan: Patient was admitted recently for headaches and high blood pressure, she has been drinking too much vodka adn smoking too much. She was admitted for a day, had a CT head which was normal. And she was found to have low magnesium. And potassium. She was sent home on atenolol. Her blood pressure is still elevated today. Will have to add her on medications For it, She also needs to go back for counseling, Fatigue 06/25/2014 11/27/2016 Last Assessment & Plan: She has been fatigued for the past 3 months. She was sick prior to that, Like a viral illness, Right now she sleeps a lot, For example she has to nap in the afternoon, lately, She then sleeps at 12 MN and gets Up at 10 in the morning, And has to nap at 3 PM. She eats once a day, Because sh alexandra doesn't have an appetite. She eats regular dinner meals, She has depression and is on SSRI, She stopped drinking coffee and she is quitting smoking for the past 3 months and these symptoms seems to be the same time that this has happened. Sinusitis 06/25/2014 11/27/2016 Last Assessment & Plan: Is being treated for it with cefdinir. Does not feel any better, flonase has been prescribed to help with the drainage. Insomnia 08/15/2013 09/16/2018 Last Assessment & Plan: She is having trouble falling asleep. Is been having trouble shutting off and lies there for the whole night. Not working right now, and i think that is bothering her i am sure. documented as of this encounter (statuses as of 07/21/2022) [facility] Hip pain, acute, left- Primary [facility] Diagnosis Sinus congestion- Primary Other diseases of nasal cavity and sinuses Wheezing Nausea Nausea alone [facility] Insomnia- Primary Insomnia, unspecified MOUNIKA (obstructive sleep apnea) Obstructive sleep apnea (adult) (pediatric) Tobacco use Tobacco use disorder Depression Depressive disorder, not elsewhere classified Hypertension Unspecified essential hypertension Hospital discharge follow-up Other follow-up examination Vitamin D deficiency Unspecified vitamin D deficiency Hypertension- Primary Unspecified essential hypertension MOUNIKA (obstructive sleep apnea) Obstructive sleep apnea (adult) (pediatric) Tobacco use Tobacco use disorder Cough Irritable bowel syndrome with diarrhea- Primary Irritable bowel syndrome Need for prophylactic vaccination and inoculation against influenza Essential hypertension Unspecified essential hypertension Insomnia, unspecified type Tobacco use Tobacco use disorder Depression Depressive disorder, not elsewhere classified Essential hypertension- Primary Unspecified essential hypertension Pain of right scapula Disorder of bone and cartilage, unspecified Tobacco use Tobacco use disorder Moderate episode of recurrent major depressive disorder (HCC) Type 2 diabetes mellitus without complication (HCC)- Primary Type II or unspecified type diabetes mellitus without mention of complication, not stated as uncontrolled Tobacco use Tobacco use disorder Essential hypertension with goal blood pressure less than 140/90 Essential hypertension with goal blood pressure less than 140/90- Primary Type 2 diabetes mellitus without complication (HCC) Type II or unspecified type diabetes mellitus without mention of complication, not stated as uncontrolled MOUNIKA (obstructive sleep apnea) Obstructive sleep apnea (adult) (pediatric) Tobacco use Tobacco use disorder Emotional stress Unspecified acute reaction to stress Hip pain, acute, left documented in this encounter [facility] for referral (narrative)* Diagnostic Procedure Only (Urgent) - Pending Review Specialty Diagnoses / Procedures Referred By Becky pena Referred To Contact XR IMAGING Diagnoses Hip pain, acute, left Procedures XR HIP GENERAL 3V PELV/AP/LAT LEFT RADEX HIP UNILATERAL WITH PELVIS 2-3 VIEWS Samantha Deleon APRN.FORMING 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 [address] [place] [address] Xr Imaging Referral ID Status Reason Start Date Expiration Date Visits Requested Visits Authorized [id number] Pending Review Auto-Generat ed Referral 07/21/2022 08/20/2023 1 1 [facility] for referral (narrative)* Diagnostic Procedure Only (Urgent) - Closed Specialty Diagnoses / Procedures Referred By Becky pena Referred To Contact XR IMAGING Diagnoses Hip pain, acute, left Procedures XR HIP GENERAL 3V PELV/AP/LAT LEFT RADEX HIP UNILATERAL WITH PELVIS 2-3 VIEWS Samantha Deleon APRN.CNP [address] [place] [address] [place] [address] Referral ID Status Reason Start Date Expiration Date V isits Requested Visits Authorized [id number] Closed Auto-Generate d Referral 07/21/2022 08/20/2023 1 1 [facility] for visit Narrative* Diagnostic Procedure Only (Urgent) - Closed Specialty Diagnoses / Procedures Referred By Contac t Referred To Contact XR IMAGING Diagnoses Hip pain, acute, left Procedures XR HIP GENERAL 3V PELV/AP/LAT LEFT RADEX HIP UNILATERAL WITH PELVIS 2-3 VIEWS Samantha Deleon APRN.FORMING MACHINE 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 [address] [place] [address] [place] [address] Referral ID Status Reason Start Date Expiration Date V isits Requested Visits Authorized [id number] Closed Auto-Generate d Referral 07/21/2022 08/20/2023 1 1 [facility] Summary Purpose Family History No Family History Records FoundNo Family History Records Found Advance Directives No Advanced Directives Records FoundNo Advanced Directives Records Found Additional Source Comments <item> Privacy Markings (unrecogniz ed section and content) Section Author: Yenifer Bowman PROHIBITION ON REDISCLOSURE OF CONFIDENTIAL INFORMATION This notice accompanies a disclosure of information concerning a client made to you with the consent of such client. INFORMATION SOURCE (unrecogn ized section and content) DATE CREATED AUTHOR 06/16/2021 [facility] DATE CREATED AUTHOR AUTHOR'S ORGANIZ ATION 04/24/[address] [facility] Source Comments (unrecognize d section and content) In the event this informatio n is protected by the Federal Confidentiality of Alcohol and Drug Abuse Patient Records regulations: The Federal rules restrict any use of the information to criminally investigate or prosecute any alcohol or drug abuse patient.[facility] the event this information is protected by the Federal Confidentiality of Alcohol and Drug Abuse Patient Records regulations: The Federal rules restrict any use of the information to criminally investigate or prosecute any alcohol or drug abuse patient.[facility] the event this information is protected by the Federal Confidentiality of Alcohol and Drug Abuse Patient Records regulations: The Federal rules restrict any use of the information to criminally investigate or prosecute any alcohol or drug abuse patient.[facility] Reason for Visit (unrecogniz ed section and content) Reason Comments left hip pain X 3 days-cannot reca ll an injury Reason Comments Sinus Problem Nasal congestion, dr garland slight sore throat, nausea, cough, wheezing x 1 day Care Teams (unrecognized sec tion and content) Older Adult Social Work Specialist Relationship Specialty Start Date End Date Ihsan Aguilar DO PCP - General Family Practice 10/22/20 Older Adult Social Work Specialist Relationship Specialty Start Date End Date Ihsan Aguilar DO PCP - General Family Medicine 10/22/20 Older Adult Social Work Specialist Relationship Specialty Start Date End Date Ihsan Aguilar DO PCP - General Family Medicine 10/22/20 FOR RECORDS PERTAINING TO PATIENTS WHO ARE OR HAVE BEEN ENROLLED IN A CHEMICAL DEPENDENCY/SUBSTANCEABUSE PROGRAM, SOME INFORMATION MAY BE OMITTED. This clinical summary was aggregated from multiple sources. Caution should be exercised in using it in the provision of clinical care. This summary normalizes information from multiple sources, and as a consequence, information in this document may materially change the coding, format and clinical context of patient data. In addition, data may be omitted in some cases. CLINICAL DECISIONS SHOULD BE BASED ON THE PRIMARY CLINICAL RECORDS. [facility] [employer] [facility]. provides no warranty or guarantee of the accuracy or completeness of information in this document.
== END | disposition home or self-care (01) ==
PROVIDERS: PCP Family Medicine; Referring Provider Student in an Organized Health Care Education/Training Program; Visit Provider Student in an Organized Health Care Education/Training Program
DX: M54.16 Radiculopathy, lumbar region (principal)
CPT/HCPCS: 72148

== ENCOUNTER 2024-11-12 10:25 | Emergency (ER) | payer BC, SELFPAY ==
[2024-11-12 10:25] VITALS: BP 192/89; BP 206/97; PULSE 110; PULSE 112; RESP 16; RESP 18; TEMP 36.1; O2SAT 97; O2SAT 98; BMI 26.0
--- NOTE | 2024-11-12 10:48 | EKG12_ITS ---
Test Reason : CP Blood Pressure : */* mmHG Vent. Rate : 95 BPM Atrial Rate : 95 BPM P-R Int : 122 ms QRS Dur : 76 ms QT Int : 358 ms P-R-T Axes : 64 53 61 degrees QTcB Int : 449 ms Poor data quality, interpretation may be adversely affected Normal sinus rhythm Normal ECG Confirmed by STEFFANY LEBLANC, IFRAH ([id number]), material expeditor JAVID JAMES ([id number]) on 11/15/2024 6:08:07 AM Referred By: AR/RU Confirmed By: IFRAH JETER MD
--- NOTE | 2024-11-12 10:51 | ED.VIS.CHEST ---
HPI History of Present Illness Chief Complaint: Chest Pain Narrative Narrative: 49-year-old female states that she had a non-STEMI last year, presents with chest pain and left arm numbness that began yesterday evening. Has been intermittent. However, she states that she awoke this morning with shortness of breath. She put on her pulse ox and it was 98%. She feels like she cannot get enough air. However, she denies any DVT or PE risk factors, no swelling of the legs. Said a cough. She became nauseated and vomited once today without any blood in her emesis. Additionally, she states she had a little diarrhea. Over the last few days. She states she has not been feeling well, but today was worse. She no longer takes aspirin on a daily basis secondary to bruising, and states that her facility coordinator told her that she did not need to take it any longer. However, she continues to be a smoker. She presents mainly because of the chest pressure that is more central in her chest, shortness of breath, and rare feelings of sharp stabbing pain. She states that those come and bursts. [facility] Medical History Strain of left foot Plantar fasciitis of left foot Acute otitis media, right Contact with or exposure to other viral diseases URI (upper respiratory infection) Alcohol abuse GERD (gastroesophageal reflux disease) CPAP (continuous positive airway pressure) dependence Smoker COPD (chronic obstructive pulmonary disease) Myocardial infarct Seizures History of left heart catheterization (LHC) (~11/19/22) Sleep apnea Pancreatitis Acute lumbar myofascial strain Strain of left hip Depression Anxiety Diabetes HTN (hypertension) Type 2 diabetes mellitus Home Medications ?Medication ?Instructions ?Recorded ?Last Taken ?Type metformin 500 mg tablet 500 ea PO BID DIABETES 10/31/22 11/17/22 21:30 History aspirin 81 mg chewable tablet 81 mg PO DAILY@0800 #30 tabs 11/19/22 Unknown Rx bupropion HCl 150 mg 24 hr tablet, 150 mg PO DAILY 01/21/23 Unknown History extended release citalopram 20 mg tablet 20 mg PO DAILY 03/22/23 Unknown History budesonide-formoterol HFA 80 1 puff inhalation BID 04/09/23 Unknown History mcg-4.5 mcg/actuation aerosol inhaler (Symbicort) montelukast 10 mg tablet 10 mg PO DAILY 04/09/23 Unknown History (Singulair) pantoprazole 40 mg tablet,delayed 40 mg PO BID 05/04/23 Unknown History release cholecalciferol (vitamin D3) 50 50 mcg PO DAILY 08/25/23 Unknown History mcg (2,000 unit) capsule magnesium 250 mg tablet 250 mg PO DAILY 08/25/23 Unknown History omega-3 fatty acids 1,000 mg 1,000 mg PO DAILY 08/25/23 Unknown History capsule phenazopyridine 95 mg tablet 95 mg PO BID 08/25/23 Unknown History atorvastatin 40 mg tablet 40 mg PO DAILY #30 tabs 04/18/24 Unknown Rx albuterol sulfate 90 mcg/actuation 2 puff inhalation Q6H PRN 04/27/24 Unknown Rx aerosol inhaler shortness of breath or wheezing #8.5 grams levocetirizine 5 mg tablet 5 mg PO DAILY 08/22/24 Unknown History lisinopril 20 mg tablet 20 mg PO DAILY BLOOD PRESSURE #30 08/22/24 Unknown Rx tabs varenicline 1 mg tablet (Chantix) 1 mg PO BID 08/22/24 Unknown History meloxicam 15 mg tablet 15 mg PO QDAY PRN pain #30 tabs 08/28/24 Unknown Rx tizanidine 4 mg tablet 4 mg PO BID PRN 08/28/24 Unknown History oxycodone-acetaminophen 5 mg-325 1 tab PO BID PRN 10/09/24 Unknown History mg tablet empagliflozin 25 mg tablet 25 mg PO DAILY 11/12/24 Unknown History (Jardiance) metoprolol succinate 25 mg 25 mg PO DAILY 11/12/24 Unknown History tablet,extended release 24 hr Allergy/AdvReac Type Severity Reaction Status Date / Time No Known Allergies Allergy Verified 11/12/24 10:26 Family History Grandfather CVA (cerebral vascular accident) Diabetes Mother Cancer Father Hypertension Grandmother Hypertension Diabetes Surgical History History of cholecystectomy H/O tooth extraction plantar fasciitis release Social History household members: spouse and children housing: house pets and animals: Yes Smoking Status: Current some day smoker tobacco type: cigarettes alcohol intake: current alcohol intake frequency: a few times a month Alcohol type: hard liquor substance use type: does not use ROS ROS ED ROS Narrative Constitutional: No fever, no chills. HEENT: No sore throat. No neck pain. No loss of vision. No rhinorrhea. Cardiovascular: Positive chest pressure and chest pain. No palpitations. No pedal edema. Respiratory: Occasional cough, positive shortness of breath. Feels like cannot get enough air. Abdominal: No abdominal pain. 1 episode of nausea and vomiting. No hematemesis. Positive diarrhea. Genitourinary: No dysuria. No hematuria. Musculoskeletal: No myalgias. No arthralgias. Neurologic: No headaches. No dizziness. No lightheadedness. Skin: No rash. No change in color. Psychiatric: No depression. No anxiety. EXAM Physical Exam Narrative Exam Narrative: Afebrile. Vital signs noted. Cardiovascular examination reveals a regular tachycardia. Lungs are clear to auscultation bilaterally. Abdomen soft and nontender with positive bowel sounds. Neurological examination is nonfocal and nonlateralizing. No noted pedal edema. Const Vital Signs: 11/12/24 10:25 11/12/24 10:25 11/12/24 11:01 Temperature 96.9 F L Temperature Source Temporal Pulse Rate 112 H 110 H 95 Respiratory Rate 18 16 Respiratory Effort Blood Pressure 206/97 H 192/89 H 183/86 H Blood Pressure Mean 133 123 Pulse Ox 97 98 Oxygen Delivery Method Room Air Room Air 11/12/24 11:05 11/12/24 11:05 11/12/24 11:09 Temperature Temperature Source Pulse Rate 103 H Respiratory Rate Respiratory Effort Normal Blood Pressure 184/90 H Blood Pressure Mean Pulse Ox Oxygen Delivery Method Room Air 11/12/24 11:15 11/12/24 13:00 Temperature Temperature Source Pulse Rate 104 H 95 Respiratory Rate 16 16 Respiratory Effort Blood Pressure 164/86 H 169/75 H Blood Pressure Mean 112 106 Pulse Ox 95 97 Oxygen Delivery Method Room Air Room Air Heart Score History: Slightly/Non-Suspicious ECG: Normal Age: >45 - <65 years Risk Factors: >/= 3 Risk Factors or History of CAD Troponin: </= Normal Limit Score: 3 MDM MDM MDM Narrative Medical decision making narrative: Differential diagnosis includes but not limited to hypertensive urgency versus emergency versus ACS versus pulmonary embolism versus pneumonia versus pneumothorax. I reviewed her prior records. She has had hypertensive urgency in the past as well as ACS and STEMI. Chest pain workup was pursued as well as D-dimer given her tachycardia. She is not hypoxic. Hence, I do not favor pulmonary embolism. EKG was obtained and interpreted by myself independently as normal sinus rhythm at 95 bpm without ectopy or acute ST changes. No STEMI. I reviewed her laboratory work and she has normal white count of 8.6, hemoglobin 12.9 with hematocrit 37.7, platelet count normal at 211. Sodium slightly low 135 which I think is nonspecific, potassium normal at 3.7, magnesium low at 1.1 which was replaced orally. Serum is negative. D-dimer is elevated 0.74. In review of prior laboratories it has been negative. Chest x-ray in 1 view initially interpreted by myself independently shows no evidence of pneumonia or pneumothorax. I reviewed her radiology report which confirms my independent interpretation. As she has an elevated D-dimer at 0.74, CTA was obtained to rule out pulmonary embolism and dissection. I reviewed the radiology report which shows no evidence of a pulmonary embolism or dissection, no acute process in the lungs. After nitroglycerin, she had a headache so she was given Tylenol. Her blood pressure had lowered into the 160s systolic and she felt improved. She had slight rise in her blood pressure so she was administered hydralazine 5 mg intravenously. At this point in time, she was told to keep a log of her blood pressures for her primary care provider. I do not feel she needs to be admitted for blood pressure control. Her states that she has been stressed over the last few months which may also contribute to her elevated blood pressure readings. At this point in time, patient motivated for discharge. I feel she can be discharged to follow-up with her primary care provider. Return instructions to the emergency department were reviewed. Disposition is discharged home in stable condition. History & Record Review Discussion w/independent historian: Patient and Family Additional record(s) reviewed:: Prior ED visit and Prior labs Lab Data Attestation: I reviewed the patient's lab results. Labs: Laboratory Results - last 24 hr 11/12/24 11/12/24 10:56 13:11 WBC 8.6 RBC 3.83 L Hgb 12.9 Hct 37.7 MCV 98.4 MCH 33.7 H MCHC 34.2 RDW Std Deviation 46.6 H RDW Coeff of Braxton 13.1 Plt Count 211 MPV 9.2 Immature Gran % (Auto) 0.200 Neut % (Auto) 76.1 H Lymph % (Auto) 15.1 L [place] % (Auto) 6.9 Eos % (Auto) 1.2 Baso % (Auto) 0.5 Absolute Neuts (auto) 6.5 Absolute Lymphs (auto) 1.29 Nucleated RBC % 0 D-Dimer Quant (PE/DVT) 0.74 H* Sodium 135 L Potassium 3.7 Chloride 99 Carbon Dioxide 27.0 Anion Gap 9 BUN 14 Creatinine 0.59 Estim Creat Clear Calc 112.29 Est GFR (MDRD) Af Amer 140 Est GFR (MDRD) Non-Af 116 BUN/Creatinine Ratio 23.8 H Glucose 131 H Calcium 8.1 L Magnesium 1.1 L Troponin I High Sens 6 6 Serum , Qual NEGATIVE Radiography Diagnostic Testing: Clinical Impression(s) from Imaging Studies Chest X-Ray 11/12/24 10:55 IMPRESSION: No radiographic evidence of acute cardiopulmonary disease. Electronically Signed: Laurie Yates MD at 11:26 EST , Chest CTA 11/12/24 11:16 IMPRESSION: No demonstrated pulmonary embolism or arterial dissection. No acute cardiopulmonary process. Fatty infiltration of the liver. Electronically Signed: Laurie Yates MD at 12:23 EST , Discharge Plan Triage Chief Complaint: Chest Pain ED Provider: Rober Concepcion Dx/Rx/DC Orders Clinical Impression: Chest pressure, D-dimer, elevated, Shortness of breath, Uncontrolled hypertension Instructions: ED Chest Pain, Uncertain Cause, ED Dyspnea, ED High Blood Pressure Hypertension Prescriptions: No Action metformin 500 mg tablet 500 ea PO BID magnesium 250 mg tablet 250 mg PO DAILY phenazopyridine 95 mg tablet 95 mg PO BID cholecalciferol (vitamin D3) 50 mcg (2,000 unit) capsule 50 mcg PO DAILY omega-3 fatty acids 1,000 mg capsule 1,000 mg PO DAILY varenicline [Chantix] 1 mg tablet 1 mg PO BID lisinopril 20 mg tablet 20 mg PO DAILY Qty: 30 11RF albuterol sulfate 90 mcg/actuation HFA aerosol inhaler 2 puff inhalation Q6H PRN (Reason: shortness of breath or wheezing) Qty: 8.5 0RF tizanidine 4 mg tablet 4 mg PO BID PRN meloxicam 15 mg tablet 15 mg PO QDAY PRN (Reason: pain) Qty: 30 0RF oxycodone-acetaminophen 5-325 mg tablet 1 tab PO BID PRN aspirin 81 mg Tablet,Chewable 81 mg PO DAILY@0800 Qty: 30 0RF bupropion HCl 150 mg tablet extended release 24 hr 150 mg PO DAILY Patient Comments: take 1 tablet by mouth once daily citalopram 20 mg tablet 20 mg PO DAILY Patient Comments: take 1 tablet by mouth once daily montelukast [Singulair] 10 mg Tablet 10 mg PO DAILY budesonide-formoterol [Symbicort] 80-4.5 mcg/actuation Hfa Aerosol Inhaler 1 puff INHALATION BID levocetirizine 5 mg tablet 5 mg PO DAILY pantoprazole 40 mg tablet,delayed release (DR/EC) 40 mg PO BID metoprolol succinate 25 mg tablet extended release 24 hr 25 mg PO DAILY Jardiance 25 mg tablet 25 mg PO DAILY atorvastatin 40 mg tablet 40 mg PO DAILY Qty: 30 6RF Primary Care Provider: Abisai Haley Referrals: Abisai Haley MD [Primary Care Provider] - 3-5 Days Activity Restrictions/Additional Instructions: Keep a log of your blood pressures for your primary care provider. You may need an increase in your medication, oral medication added. Return with new or worsening symptoms or consistently elevated blood pressure. Print Language: Citizen Of [place] Disposition Disposition: Home, Self Care
--- NOTE | 2024-11-12 10:55 | RAD_ITS ---
INDICATION: chest pain EXAMINATION/TECHNIQUE: X-RAY - XR Chest 1 View COMPARISON: October 10, 2023 and January 24, 2024 FINDINGS: LINES/DEVICES: None. LUNGS: No consolidation, edema or effusion. No pneumothorax. MEDIASTINUM AND CARDIOVASCULAR STRUCTURES: Cardiac silhouette not enlarged. Central airways and mediastinal contour are unremarkable. BONES AND SOFT TISSUES: Unremarkable. RAD/Chest 1 View (Portable) IMPRESSION: No radiographic evidence of acute cardiopulmonary disease. Electronically Signed: Laurie Yates MD at 11:26 EST ,
[2024-11-12 11:01] VITALS: BP 183/86; PULSE 95
[2024-11-12] MEDS: Nitroglycerin SL (ED/IMG/CATH) 0.4 MG TABLET SL ×2 (11:01→11:09)
[2024-11-12 11:04] LABS: Absolute Lymphocyte Count 1.29 X10^3/uL (0.83-4.51); Absolute Neutrophil Count 6.5 X10^3/uL (2.0-7.7); Basophil# 0.04 X10^3/uL; Basophil% 0.5 % (0-1); Eosinophils% 1.2 % (0-5); Hematocrit 37.7 % (37-47); Hemoglobin 12.9 g/dL (12.0-15.0); Lymphocyte # 1.29 X10^3/ul (0.83-4.51); Lymphocyte % 15.1 % (19-41); Mean Corp Hgb Conc 34.2 g/dL (32-36); Mean Corpuscular Hgb 33.7 pg (27.0-32.0); Mean Corpuscular Volume 98.4 fL (81-99); Mean Platelet Vol. 9.2 fl (6.2-12.0); Monocyte# 0.59 X10^3/uL; Monocyte% 6.9 % (0-10); NRBC Flagged by Analyzer 0 % (0-5); Neutrophil # 6.53 X10^3/uL (2.7-7.7); Neutrophil % 76.1 % (47-70); Platelet Count 211 K/mm3 (150-450); RBC Distribution Width CV 13.1 % (11.6-14.6); RBC Distribution Width SD 46.6 fl (35.1-43.9); Red Blood Count 3.83 M/mm3 (4.2-5.4); White Blood Count 8.6 K/mm3 (4.4-11.0)
[2024-11-12] MEDS: Aspirin 81 MG TAB.CHEW 324 MG PO (11:04)
[2024-11-12 11:09] VITALS: BP 184/90; PULSE 103
[2024-11-12 11:13] LABS: D-Dimer Quantitative (DVT/PE) 0.74 FEU/ug/m (0.27-0.49)
[2024-11-12 11:15] VITALS: BP 164/86; PULSE 104; RESP 16; O2SAT 95
--- NOTE | 2024-11-12 11:16 | CT_ITS ---
STUDY: CTA CHEST REASON FOR EXAM: Female, 49 years old. Elevated d dimer RADIATION DOSAGE (If Supplied By Facility): CTDIvol = ( 10.14 ) mGy, DLP = ( 513.93 ) mGycm TECHNIQUE: The examination was performed with the intravenous administration of IV 75mL Isovue-370. Post-processing of the angiographic images was performed, with multiplanar reformation and 3D reconstruction. The protocol utilizes one or more of the following dose reduction techniques: automated exposure control, adjustment of mA and/or kV according to patient size,and/or use of iterative reconstruction technique. COMPARISON: CT of the abdomen and pelvis dated July 11, 2024 FINDINGS: Normal enhancement of the main pulmonary artery and right and left pulmonary arteries. There is suboptimal enhancement of the bilateral peripheral pulmonary arteries. There is no gross demonstrated pulmonary embolism. Normal thoracic aorta and visualized great vessels. There is no demonstrated aortic dissection. Normal heart and pericardium. No coronary artery calcifications are visualized. Normal mediastinum. Normal hilar regions. Normal visualized trachea and bronchi. There is no new focal consolidation. There is stable minimal basilar atelectasis and/or scarring within the right middle lobe. Normal chest wall structures. Normal osseous structures. The limited images of the upper abdomen demonstrate a diffusely low in attenuation liver consistent with fatty infiltration. CT/CTA Chest W/WO Contrast IMPRESSION: No demonstrated pulmonary embolism or arterial dissection. No acute cardiopulmonary process. Fatty infiltration of the liver. Electronically Signed: Laurie Yates MD at 12:23 EST ,
[2024-11-12] MEDS: Acetaminophen 325 MG Tablet 650 MG PO (11:17)
[2024-11-12 11:22] LABS: Anion Gap 9 (5-15); BUN 14 mg/dL (7-18); BUN/Creat Ratio 23.8 RATIO (10-20); Calcium,Total 8.1 mg/dL (8.5-10.1); Chloride 99 mmol/L (98-107); Creatinine, Serum 0.59 mg/dL (0.55-1.02); EST Glomerular Filtration Rate 116 mL/min (>60); Est Glom Filt Rate - Afr Amer 140 mL/min (>60); Estimated Creatinine Clearance 112.29 ml/min; Glucose 131 mg/dL (74-106); Magnesium 1.1 mg/dL (1.6-2.6); Potassium 3.7 mmol/L (3.5-5.1); Sodium Level 135 mmol/L (136-145); Troponin-I HS (w/2H Reflex) 6 pg/mL (3.0-54.0)
[2024-11-12 12:03] LABS: Internal QC Validated? YES +Cl - CLEAR BKGD; Pregnancy, Serum, hCG Quali. NEGATIVE Negative
[2024-11-12] MEDS: Magnesium Chloride 64 MG Delay Rel.Tablet 128 MG PO (12:56)
[2024-11-12 13:00] VITALS: BP 169/75; PULSE 95; RESP 16; O2SAT 97
[2024-11-12 13:00] LABS: Reflex Troponin-HS? (from REC) Y
[2024-11-12] MEDS: hydrALAZINE 20 MG/ML Vial 5 MG IV (13:09)
[2024-11-12 13:36] LABS: Troponin-I HS 6 pg/mL (3.0-54.0)
[2024-11-12 13:41] VITALS: BP 159/82; PULSE 97; RESP 18; TEMP 36.6; O2SAT 99
== END 2024-11-12 13:51 | disposition home or self-care (01) ==
PROVIDERS: Emergency Provider Emergency Medicine; PCP Family Medicine; Visit Provider Emergency Medicine
DX: R07.89 Other chest pain (principal); J44.9 Chronic obstructive pulmonary disease, unspecified; E11.9 Type 2 diabetes mellitus without complications; R79.89 Other specified abnormal findings of blood chemistry; I10 Essential (primary) hypertension; R11.10 Vomiting, unspecified; R06.02 Shortness of breath; F17.210 Nicotine dependence, cigarettes, uncomplicated; Z90.49 Acquired absence of other specified parts of digestive tract; Z79.82 Long term (current) use of aspirin; I25.2 Old myocardial infarction; K21.9 Gastro-esophageal reflux disease without esophagitis; Z99.89 Dependence on other enabling machines and devices
CPT/HCPCS: 71045; 71275; 80048; 83735; 84484; 84703; 85025; 85379; 93005; 99284; Q9967; A4216

== ENCOUNTER 2025-04-04 10:24 | Emergency (ER) | payer SELFPAY ==
[2025-04-04] VITALS (13 sets, daily range): BP systolic 157–206; BP diastolic 88–112; PULSE 87–138; RESP 14–26; TEMP 36.2–36.9; O2SAT 91–97; BMI 25.1
--- NOTE | 2025-04-04 10:50 | EKG12_ITS ---
Test Reason : CP Blood Pressure : */* mmHG Vent. Rate : 119 BPM Atrial Rate : 119 BPM P-R Int : 118 ms QRS Dur : 70 ms QT Int : 344 ms P-R-T Axes : 86 74 82 degrees QTcB Int : 483 ms Sinus tachycardia Nonspecific ST and T wave abnormality Abnormal ECG Confirmed by Noe Coy ([id number]), senior editor JAVID JAMES ([id number]) on 04/06/2025 12:47:46 PM Referred By: Confirmed By: Noe Coy
[2025-04-04 11:11] LABS: Absolute Lymphocyte Count 1.23 X10^3/uL (0.83-4.51); Absolute Neutrophil Count 6.8 X10^3/uL (2.0-7.7); Basophil# 0.06 X10^3/uL; Basophil% 0.7 % (0-1); Eosinophil# 0.02 X10^3/uL; Eosinophils% 0.2 % (0-5); Hematocrit 40.3 % (37-47); Hemoglobin 14.3 g/dL (12.0-15.0); Lymphocyte # 1.23 X10^3/ul (0.83-4.51); Mean Corp Hgb Conc 35.5 g/dL (32-36); Mean Corpuscular Hgb 35.4 pg (27.0-32.0); Mean Corpuscular Volume 99.8 fL (81-99); Monocyte# 0.69 X10^3/uL; Monocyte% 7.8 % (0-10); NRBC Flagged by Analyzer 0.2 % (0-5); Neutrophil # 6.77 X10^3/uL (2.7-7.7); Platelet Count 186 K/mm3 (150-450); RBC Distribution Width CV 13.5 % (11.6-14.6); RBC Distribution Width SD 50.3 fl (35.1-43.9); Red Blood Count 4.04 M/mm3 (4.2-5.4); White Blood Count 8.8 K/mm3 (4.4-11.0)
[2025-04-04 11:36] LABS: Anion Gap 18 (5-15); BUN 5 mg/dL (4-19); BUN/Creat Ratio 8.7 RATIO (10-20); Calcium,Total 8.4 mg/dL (7.6-11.0); Carbon Dioxide 27.3 mmol/L (21.0-32.0); Chloride 94 mmol/L (98-108); Creatinine, Serum 0.55 mg/dL (0.70-1.20); EST Glomerular Filtration Rate 113 (>60); Glucose 131 mg/dL (70-99); Potassium 2.9 mmol/L (3.3-5.1); Sodium Level 139 mmol/L (133-145); Troponin T High Sensitivity < 6 ng/L (<=14)
[2025-04-04] MEDS: 0.9% Normal Saline (1000mL) 1,000 ML 999 ML IV ×2 (11:49→14:31)
[2025-04-04] MEDS: morphine 8 MG/ML Syringe 6 MG IV (11:49)
[2025-04-04] MEDS: Ondansetron 4 MG/2 ML Vial IV (11:50)
--- NOTE | 2025-04-04 11:55 | RAD_ITS ---
PROCEDURE: CHEST 1 VIEW (PORTABLE) 04/04/2025 REASON FOR EXAM: CHEST PAIN TECHNIQUE: Frontal view of the chest. COMPARISON: Chest x-ray 11/12/2024 RAD/Chest 1 View (Portable) IMPRESSION: Lungs appear clear throughout. No pleural effusion or pneumothorax is seen. The cardiomediastinal silhouette is stable, without evidence of cardiomegaly. No acute osseous process is seen. Negative examination. Reading Location: [place] [id number]
--- NOTE | 2025-04-04 12:02 | CT_ITS ---
PROCEDURE: ABDOMEN/PELVIS W IV CONT ONLY, 04/04/2025 REASON FOR EXAM: EPIAGSTRIC PAIN, VOMITING TECHNIQUE: CT abdomen and pelvis was performed with IV contrast. Multiplanar reformats were generated. IV contrast: Isovue-300 VOLUME: 98mL RADIATION DOSE SUMMARY: CTDlvol: 9.97+ 11.45 mGy DLP: 595.61 mGycm One or more dose reduction techniques were used (e.g., Automated exposure control, adjustment of the mA and/or kV according to patient size, use of iterative reconstruction technique). COMPARISON: 07/11/2024 FINDINGS: Lung bases: Vaguely nodular irregular RIGHT middle lobe airspace disease is new from prior, roughly 13 x 24 mm (series 2, image 11). Liver: Diffuse hepatic hypoattenuation is new from prior. Geographic likely focal steatosis along the anterior falciform. Punctate subcentimeter hypodensity too small to characterize, likely cysts/hemangioma in the absence of known malignancy. Spleen: Unremarkable. Gallbladder: Cholecystectomy similar mild dilatation of the CBD to 8 mm, favoring post cholecystectomy effect. Pancreas: Focal calcifications in the pancreatic head/uncinate process versus a calcified adjacent lymph node as can be seen in chronic granulomatous disease, similar to prior exams dating back to 08/23/2023.. Adrenals: Unremarkable. Kidneys: Unremarkable. Bowel: Focally borderline mildly dilated small bowel loop in the LEFT anterior lower abdomen measures 3.0 cm in diameter tapering proximally and distally. No convincing inflammation... Normal caliber appendix. Lymph nodes: Unremarkable. Vasculature: Moderate atherosclerosis, probably slightly greater than expected for age. Peritoneum: Unremarkable. Bladder: Underdistended and suboptimally evaluated, grossly unremarkable. Reproductive Organs: Unremarkable. Body Wall: Unremarkable. Bones: Unremarkable. CT/Abdomen/Pelvis W IV Cont ONLY IMPRESSION: 1. Correlate for minimal small bowel ileus. 2. Findings in the RIGHT middle lobe which may reflect mild pneumonia. Given n odular appearance, recommend CT chest in 3 months to document resolution. 3. Diffuse hepatic hypoattenuation is new from prior, typically indicating stea tosis. Correlate for clinical and laboratory evidence of chronic liver disease as well as hepatitis which could conceivably appear similarly. 4. Additional description as above. Reading Location: [id number]
[2025-04-04 12:06] LABS: AST(SGOT) 75 U/L (<=31); Alanine Aminotransfer ALT/SGPT 44 U/L (<=34); Albumin, Serum 4.1 g/dL (3.5-5.0); Alkaline Phosphatase 91 U/L (35-104); Bilirubin, Direct 0.67 mg/dL (0.00-0.30); Globulin 3.3 g/dL (2.2-4.2); Protein, Total 7.3 g/dL (5.9-8.4); Total Bilirubin 1.26 mg/dL (0.00-1.30)
[2025-04-04 12:10] LABS: Lipase 26 U/L (13-75); Magnesium 0.6 mg/dL (1.5-2.2)
--- NOTE | 2025-04-04 12:11 | ED.RN ---
Critical magnesium level of 0.6. Dr. Knight notified
--- NOTE | 2025-04-04 12:12 | EX.ED.DYSGE1 ---
HPI History of Present Illness Chief Complaint: Palpitations Informant: patient Narrative Narrative: Patient is a 50-year-old female with history of of ACS, NSTEMI, pancreatitis, hypertension, anxiety, COPD presenting with nausea, vomiting, epigastric abdominal pain and palpitations. Patient states was her birthday yesterday. She notes she had a little to drink. She woke up at 330 this morning and had nausea and multiple signs of vomiting. She states she has from 7 times. She did have a bowel movement this morning which she describes as regular. She denies any blood in her vomit or her stool. No she felt okay yesterday. States today she feels funny. She states that her hands and feet are felt slightly tingly. She took her blood pressure and was elevated at 197/108. She took her morning medications but then drove about 30 minutes later so she is not sure how much but she kept down. She describes the pain in her epigastric region and has burst of pain. Denies any fever but has had intermittent hot flashes and then chills/sweats. [facility] Medical History Strain of left foot Plantar fasciitis of left foot Acute otitis media, right Contact with or exposure to other viral diseases URI (upper respiratory infection) Alcohol abuse GERD (gastroesophageal reflux disease) CPAP (continuous positive airway pressure) dependence Smoker COPD (chronic obstructive pulmonary disease) Myocardial infarct Seizures History of left heart catheterization (LHC) (~11/19/22) Sleep apnea Pancreatitis Acute lumbar myofascial strain Strain of left hip Depression Anxiety Diabetes HTN (hypertension) Type 2 diabetes mellitus Home Medications ?Medication ?Instructions ?Recorded ?Last Taken ?Type metformin 500 mg tablet 500 ea PO BID DIABETES 10/31/22 11/17/22 21:30 History aspirin 81 mg chewable tablet 81 mg PO DAILY@0800 #30 tabs 11/19/22 Unknown Rx bupropion HCl 150 mg 24 hr tablet, 150 mg PO DAILY 01/21/23 Unknown History extended release citalopram 20 mg tablet 20 mg PO DAILY 03/22/23 Unknown History budesonide-formoterol HFA 80 1 puff inhalation BID 04/09/23 Unknown History mcg-4.5 mcg/actuation aerosol inhaler (Symbicort) montelukast 10 mg tablet 10 mg PO DAILY 04/09/23 Unknown History (Singulair) pantoprazole 40 mg tablet,delayed 40 mg PO BID 05/04/23 Unknown History release cholecalciferol (vitamin D3) 50 50 mcg PO DAILY 08/25/23 Unknown History mcg (2,000 unit) capsule magnesium 250 mg tablet 250 mg PO DAILY 08/25/23 Unknown History omega-3 fatty acids 1,000 mg 1,000 mg PO DAILY 08/25/23 Unknown History capsule phenazopyridine 95 mg tablet 95 mg PO BID 08/25/23 Unknown History atorvastatin 40 mg tablet 40 mg PO DAILY #30 tabs 04/18/24 Unknown Rx albuterol sulfate 90 mcg/actuation 2 puff inhalation Q6H PRN 04/27/24 Unknown Rx aerosol inhaler shortness of breath or wheezing #8.5 grams empagliflozin 25 mg tablet 25 mg PO DAILY 11/12/24 Unknown History (Jardiance) metoprolol succinate 25 mg 25 mg PO DAILY 11/12/24 Unknown History tablet,extended release 24 hr lisinopril 20 mg tablet 20 mg PO DAILY BLOOD PRESSURE #30 02/26/25 Unknown Rx tabs amlodipine 5 mg tablet 5 mg PO DAILY 04/04/25 Unknown History buspirone 5 mg tablet 5 mg PO TID 04/04/25 Unknown History hydroxyzine HCl 10 mg tablet 10 mg PO TID PRN PRN anxiety 04/04/25 Unknown History magnesium 250 mg tablet 250 mg PO BID 2 weeks #28 tabs 04/04/25 Unknown Rx ondansetron 4 mg disintegrating 4 mg PO Q8H PRN PRN Nausea #14 tabs 04/04/25 Unknown Rx tablet potassium chloride 20 mEq oral 20 meq PO DAILY 5 days #5 ea 04/04/25 Unknown Rx packet Allergy/AdvReac Type Severity Reaction Status Date / Time No Known Allergies Allergy Verified 04/04/25 10:24 Family History Grandfather CVA (cerebral vascular accident) Diabetes Mother Cancer Father Hypertension Grandmother Hypertension Diabetes Surgical History History of cholecystectomy H/O tooth extraction plantar fasciitis release Social History household members: spouse and children housing: house pets and animals: Yes Smoking Status: Current some day smoker tobacco type: cigarettes alcohol intake: current alcohol intake frequency: a few times a month Alcohol type: hard liquor substance use type: does not use ROS ROS ED Constitutional Constitutional ED: Reports chills and sweats Cardiovascular Cardiovascular: Reports palpitations; Denies chest pain Respiratory/Chest Respiratory/Chest: Denies cough or dyspnea Gastrointestinal Gastrointestinal: Reports abdominal pain, nausea and vomiting Musculoskeletal Musculoskeletal: Denies arthralgias or myalgias Neurologic Neurologic: Reports weakness and other Details: shaky feeling Psychiatric Psychiatric: Reports anxiety Hematologic/Lymphatic Hematologic/Lymphatic: Denies easy bleeding or easy bruising EXAM Physical Exam Const Vital Signs: 04/04/25 10:24 04/04/25 10:24 04/04/25 13:11 Temperature 97.1 F L 98.4 F Temperature Source Temporal Oral Pulse Rate 138 H 105 H Respiratory Rate 22 H 14 Blood Pressure 206/101 H 181/104 H 164/103 H Blood Pressure Mean 136 129 123 Pulse Ox 96 96 Oxygen Delivery Method Room Air Room Air 04/04/25 14:32 Temperature Temperature Source Pulse Rate 99 Respiratory Rate 18 Blood Pressure 171/112 H Blood Pressure Mean 131 Pulse Ox 93 Oxygen Delivery Method Room Air Positive well nourished and well developed General Appearance ED: well developed and NAD HEENT Reports dry mucous membranes Mouth ED: Yes dry mucous membranes Mouth: dry mucous membranes Eyes General Eye ED: Negative for scleral icterus Neck supple Chest Wall inspection of chest normal Resp normal respiratory effort and clear to auscultation bilaterally Cardio regular rhythm and no murmurs Rate: tachycardic GI Auscultation: normoactive bowel sounds Palpation: soft and tender epigastric; Negative for guarding Back/Spine no CVA tenderness Extremity normal to inspection General Extremety ED: Negative for edema General Extremity: Negative for edema Neuro oriented x3 Sensorium / Orientation: alert Psych Mood & Affect: anxious and tearful Skin no rashes or lesions noted and no wounds MDM MDM MDM Narrative Medical decision making narrative: Patient is a 50-year-old female with significant cardiac history as well as remote history of pancreatitis and some continued alcohol use presenting with nausea, vomiting and epigastric abdominal pain. She also is complaining of palpitations which was her main complaint when she arrived to the emergency room. When I spoke with her she mainly talked about her GI symptoms. Given her cardiac history will obtain abdominal and cardiac workup. Differential includes ACS, symptomatic anemia, LUI, electrolyte abnormality, pancreatitis, bowel obstruction, choledocholithiasis and obstruction. CBC, CMP, lipase, delta high-sensitivity troponin were obtained. Patient is given IV fluids, morphine and Zofran for symptom control. Patient has a normal CBC. Her CMP shows an elevated anion gap of 18 likely consistent with some mild dehydration. Her potassium is low at 2.9 and her magnesium is significantly low at 0.6 (this is added on after potassium was found to be low). Patient is given 4 mg IV magnesium in the emergency room as well as oral potassium replacement. She tolerates this. Her cardiac workup is largely normal with normal high-sensitivity troponins and no acute ischemic changes on her EKG. Chest x-ray viewed by myself as well as radiology does not show any acute process. CT abdomen pelvis colitis with minimal small bowel ileus no other acute process. Her bilirubin is largely normal I do not suspect there is any acute obstructive process. She does have a mild transaminitis (AST 75 and ALT of 44) but I suspect this is associate with alcohol use. Patient is reevaluated. She is having improvement of symptoms. Is given additional dose of morphine and second liter of IV fluids. She is able to tolerate p.o. We discharged home with prescription for Zofran, potassium and magnesium. Encouraged follow-up with GI. Given return precautions. Discharged home in stable condition. Given return precautions to the emergency room. Lab Data Attestation: I reviewed the patient's lab results. Labs: Laboratory Results - last 24 hr 04/04/25 04/04/25 11:06 13:30 WBC 8.8 RBC 4.04 L Hgb 14.3 Hct 40.3 MCV 99.8 H MCH 35.4 H MCHC 35.5 RDW Std Deviation 50.3 H RDW Coeff of Braxton 13.5 Plt Count 186 MPV 10.0 Immature Gran % (Auto) 0.300 Neut % (Auto) 77.0 H Lymph % (Auto) 14.0 L [place] % (Auto) 7.8 Eos % (Auto) 0.2 Baso % (Auto) 0.7 Absolute Neuts (auto) 6.8 Absolute Lymphs (auto) 1.23 Nucleated RBC % 0.2 Sodium 139 Potassium 2.9 L Chloride 94 L Carbon Dioxide 27.3 Anion Gap 18 H BUN 5 Creatinine 0.55 L Est GFR (MDRD) Non-Af 113 BUN/Creatinine Ratio 8.7 L Glucose 131 H Calcium 8.4 Magnesium 0.6 L* Total Bilirubin 1.26 Direct Bilirubin 0.67 H AST 75 H ALT 44 H Alkaline Phosphatase 91 Troponin T High Sens < 6 Troponin T Hi Sens 2 Hr < 6 Total Protein 7.3 Albumin 4.1 Globulin 3.3 Lipase 26 Radiography Diagnostic Testing: Clinical Impression(s) from Imaging Studies Chest X-Ray 04/04/25 11:55 IMPRESSION: Lungs appear clear throughout. No pleural effusion or pneumothorax is seen. The cardiomediastinal silhouette is stable, without evidence of cardiomegaly. No acute osseous process is seen. Negative examination. Reading Location: [facility] Abdomen/Pelvis CT 04/04/25 12:02 IMPRESSION: 1. Correlate for minimal small bowel ileus. 2. Findings in the RIGHT middle lobe which may reflect mild pneumonia. Given nodular appearance, recommend CT chest in 3 months to document resolution. 3. Diffuse hepatic hypoattenuation is new from prior, typically indicating steatosis. Correlate for clinical and laboratory evidence of chronic liver disease as well as hepatitis which could conceivably appear similarly. 4. Additional description as above. Reading Location: [facility] Rhythm Strip Rhythm Strip: Sinus Tach Rate: 119 Ectopy: None EKG Initial EKG: Attestation: I personally reviewed and interpreted this EKG as follows: Interpretation: Sinus Tachycardia Comments: Sinus tachycardia rate of 119 bpm Normal axis Normal intervals Grossly normal ST segments with subtle depression in 2, 3 and aVF Compared to prior EKG on 11/12/2024 patient is now tachycardic with subtle ST segment changes Discharge Plan Triage Chief Complaint: Palpitations ED Provider: Imani Knight Dx/Rx/DC Orders Clinical Impression: Nausea and vomiting, Epigastric abdominal pain, Hypokalemia, Hypomagnesemia Instructions: Hypomagnesemia Dc, ED Hypokalemia, ED Epigastric Pain Uncertain Cause Prescriptions: New ondansetron 4 mg tablet,disintegrating 4 mg PO Q8H PRN PRN (Reason: Nausea) Qty: 14 0RF potassium chloride 20 mEq packet 20 meq PO DAILY 5 Days Qty: 5 0RF magnesium 250 mg tablet 250 mg PO BID 14 Days Qty: 28 0RF No Action metformin 500 mg tablet 500 ea PO BID magnesium 250 mg tablet 250 mg PO DAILY phenazopyridine 95 mg tablet 95 mg PO BID cholecalciferol (vitamin D3) 50 mcg (2,000 unit) capsule 50 mcg PO DAILY omega-3 fatty acids 1,000 mg capsule 1,000 mg PO DAILY albuterol sulfate 90 mcg/actuation HFA aerosol inhaler 2 puff inhalation Q6H PRN (Reason: shortness of breath or wheezing) Qty: 8.5 0RF aspirin 81 mg Tablet,Chewable 81 mg PO DAILY@0800 Qty: 30 0RF bupropion HCl 150 mg tablet extended release 24 hr 150 mg PO DAILY Patient Comments: take 1 tablet by mouth once daily citalopram 20 mg tablet 20 mg PO DAILY Patient Comments: take 1 tablet by mouth once daily montelukast [Singulair] 10 mg Tablet 10 mg PO DAILY budesonide-formoterol [Symbicort] 80-4.5 mcg/actuation Hfa Aerosol Inhaler 1 puff INHALATION BID pantoprazole 40 mg tablet,delayed release (DR/EC) 40 mg PO BID metoprolol succinate 25 mg tablet extended release 24 hr 25 mg PO DAILY Jardiance 25 mg tablet 25 mg PO DAILY buspirone 5 mg tablet 5 mg PO TID amlodipine 5 mg tablet 5 mg PO DAILY hydroxyzine HCl 10 mg tablet 10 mg PO TID PRN PRN (Reason: anxiety) atorvastatin 40 mg tablet 40 mg PO DAILY Qty: 30 6RF lisinopril 20 mg tablet 20 mg PO DAILY Qty: 30 11RF Primary Care Provider: Abisai Haley Referrals: Abisai Haley MD [Primary Care Provider] - Frank Coughlin DO [Med Staff - Active Staff] - Print Language: Armenian Disposition Disposition: Home, Self Care
[2025-04-04] MEDS: Magnesium Sulfate 2 GM in Dextrose 5%-Water (100mL Bag) 100 ML IV ×2 (12:54→15:00)
[2025-04-04 14:06] LABS: Troponin T High Sens 2 HR < 6 ng/L (<=14)
[2025-04-04] MEDS: Morphine 4 MG/ML Syringe IV (14:31)
[2025-04-04] MEDS: Potassium Chloride Oral Soln 20 MEQ/15 ML UDC 40 MEQ PO (14:59)
== END 2025-04-04 17:38 | disposition home or self-care (01) ==
PROVIDERS: Emergency Provider Emergency Medicine; PCP Family Medicine; Visit Provider Emergency Medicine
DX: R11.2 Nausea with vomiting, unspecified (principal); J44.9 Chronic obstructive pulmonary disease, unspecified; E11.9 Type 2 diabetes mellitus without complications; R10.13 Epigastric pain; I10 Essential (primary) hypertension; F41.9 Anxiety disorder, unspecified; E83.42 Hypomagnesemia; R68.83 Chills (without fever); E87.6 Hypokalemia; I25.2 Old myocardial infarction; F17.210 Nicotine dependence, cigarettes, uncomplicated; Z90.49 Acquired absence of other specified parts of digestive tract; Z99.89 Dependence on other enabling machines and devices
CPT/HCPCS: 71045; 74177; 80048; 80076; 83690; 83735; 84484; 85025; 93005; 96365; 96366; 96375; 96376; 99284; Q9967; A4216; J2405

== ENCOUNTER 2025-04-11 21:29 | Emergency (ER) | payer SELFPAY ==
[2025-04-11 21:42] VITALS: BP 143/86; PULSE 104; RESP 18; TEMP 36.2; O2SAT 92
[2025-04-11 21:46] VITALS: BMI 24.4
[2025-04-11 22:19] VITALS: BP 118/64; PULSE 91; RESP 21; O2SAT 92
[2025-04-11 22:35] VITALS: O2SAT 85
[2025-04-11 22:38] VITALS: RESP 16; O2SAT 94
--- NOTE | 2025-04-11 22:48 | EKG12_ITS ---
Test Reason : Blood Pressure : */* mmHG Vent. Rate : 78 BPM Atrial Rate : 78 BPM P-R Int : 132 ms QRS Dur : 86 ms QT Int : 428 ms P-R-T Axes : 60 65 75 degrees QTcB Int : 487 ms Normal sinus rhythm Prolonged QT Abnormal ECG Confirmed by IFRAH JETER MD ([id number]), photograph editor MADALYN MIRZA ([id number]) on 04/16/2025 9:06:53 AM Referred By: Confirmed By: IFRAH JETER MD
--- NOTE | 2025-04-11 22:50 | ED.VIS.FALL ---
HPI HPI - Fall History of Present Illness Chief Complaint: Fall Informant: patient and family (Son at bedside and another family member.) Occured/Mechanism Occurred: Today Pain/Injury Pain Location: none Associated Symptoms Associated Symptoms: Negative for Parasthesias, Weakness, Loss of function, Inability to ambulate, Loss of consciousness or Amnesia Narrative Narrative: 50-year-old female history of COPD, diabetes hypertension. She was outside on the patio at home smoking cigarettes as she walked inside she told her son to call 911 and another family member and then she collapsed on the floor. It is unknown if she had an actual loss of consciousness. Seems like she had a period where she was unresponsive for 1 to 2 minutes. She has been drinking vodka today. Family says she has had increased stress lately due to her has had medical issues. She has no known cardiac history. Recently has had some nausea vomiting and diarrhea over the last week. No melena. Prior similar symptoms: No Recent Illness/Hospitalization: No PFSH PFS Medical History Strain of left foot Plantar fasciitis of left foot Acute otitis media, right Contact with or exposure to other viral diseases URI (upper respiratory infection) Alcohol abuse GERD (gastroesophageal reflux disease) CPAP (continuous positive airway pressure) dependence Smoker COPD (chronic obstructive pulmonary disease) Myocardial infarct Seizures History of left heart catheterization (LHC) (~11/19/22) Sleep apnea Pancreatitis Acute lumbar myofascial strain Strain of left hip Depression Anxiety Diabetes HTN (hypertension) Type 2 diabetes mellitus Home Medications ?Medication ?Instructions ?Recorded ?Last Taken ?Type metformin 500 mg tablet 500 ea PO BID DIABETES 10/31/22 11/17/22 21:30 History aspirin 81 mg chewable tablet 81 mg PO DAILY@0800 #30 tabs 11/19/22 Unknown Rx bupropion HCl 150 mg 24 hr tablet, 150 mg PO DAILY 01/21/23 Unknown History extended release budesonide-formoterol HFA 80 1 puff inhalation BID 04/09/23 Unknown History mcg-4.5 mcg/actuation aerosol inhaler (Symbicort) montelukast 10 mg tablet 10 mg PO DAILY 04/09/23 Unknown History (Singulair) pantoprazole 40 mg tablet,delayed 40 mg PO BID 05/04/23 Unknown History release cholecalciferol (vitamin D3) 50 50 mcg PO DAILY 08/25/23 Unknown History mcg (2,000 unit) capsule magnesium 250 mg tablet 250 mg PO DAILY 08/25/23 Unknown History omega-3 fatty acids 1,000 mg 1,000 mg PO DAILY 08/25/23 Unknown History capsule atorvastatin 40 mg tablet 40 mg PO DAILY #30 tabs 04/18/24 Unknown Rx albuterol sulfate 90 mcg/actuation 2 puff inhalation Q6H PRN 04/27/24 Unknown Rx aerosol inhaler shortness of breath or wheezing #8.5 grams empagliflozin 25 mg tablet 25 mg PO DAILY 11/12/24 Unknown History (Jardiance) metoprolol succinate 25 mg 25 mg PO DAILY 11/12/24 Unknown History tablet,extended release 24 hr amlodipine 5 mg tablet 5 mg PO DAILY 04/04/25 Unknown History buspirone 5 mg tablet 5 mg PO TID 04/04/25 Unknown History hydroxyzine HCl 10 mg tablet 10 mg PO TID PRN PRN anxiety 04/04/25 Unknown History ondansetron 4 mg disintegrating 4 mg PO Q8H PRN PRN Nausea #14 tabs 04/04/25 Unknown Rx tablet potassium chloride 20 mEq oral 20 meq PO DAILY 5 days #5 ea 04/04/25 Unknown Rx packet citalopram 40 mg tablet 40 mg PO DAILY 04/11/25 Unknown History levocetirizine 5 mg tablet 5 mg PO DAILY 04/11/25 Unknown History lisinopril 40 mg tablet 40 mg PO DAILY 04/11/25 Unknown History magnesium oxide 250 mg PO BID 04/11/25 Unknown History Allergy/AdvReac Type Severity Reaction Status Date / Time No Known Allergies Allergy Verified 04/11/25 21:41 Family History Grandfather CVA (cerebral vascular accident) Diabetes Mother Cancer Father Hypertension Grandmother Hypertension Diabetes Surgical History History of cholecystectomy H/O tooth extraction plantar fasciitis release Social History household members: spouse and children housing: house pets and animals: Yes Smoking Status: Light Smoker (<10/day) alcohol intake: current alcohol intake frequency: a few times a month Alcohol type: hard liquor substance use type: does not use ROS ROS ED ROS Narrative Nausea, vomiting diarrhea in the last week. Constitutional Constitutional ED: Denies chills or fever(s) Eyes Eyes: Denies blurry vision ENT ENT ED: Denies ear pain Cardiovascular Cardiovascular: Denies chest pain Respiratory/Chest Respiratory/Chest: Denies cough Gastrointestinal Gastrointestinal: Reports diarrhea, nausea and vomiting; Denies abdominal pain or constipation Genitourinary Genitourinary ED: Denies dysuria or hematuria Musculoskeletal Musculoskeletal: Denies arthralgias or back pain Integumentary Denies abscess Neurologic Neurologic: Denies headache(s) Psychiatric Psychiatric: Reports anxiety Endocrine Endocrinology: Denies polydipsia, polyphagia or polyuria Hematologic/Lymphatic Hematologic/Lymphatic: Denies easy bleeding, easy bruising or lymphadenopathy Allergic/Immunologic Allergic/Immunologic ED: Denies mouth swelling, tongue swelling or urticaria EXAM Physical Exam Narrative Exam Narrative: 50-year-old female sitting upright in bed. Vital signs are stable afebrile. Pulse ox 92% on room air no hypoxia. She seems emotionally upset. Family in the room at bedside. H EENT exam pupils round reactive light. Mytrex membranes. Neck nontender no JVD. No lymphadenopathy. No trauma to her face or scalp. Nontender. Back nontender. Lungs coarse breath sounds history of COPD. Few scattered expiratory wheezes.. Equal symmetrical. Heart regular rhythm rate about 95 no murmur. Abdomen soft, nontender nondistended normal bowel sounds without peritoneal signs. Moving all 4 extremities. Nontender no deformity. Normal pediatrics physician strength. Normal dorsi plantarflexion. Neurologically she is awake alert. Answering questions following commands. Const Vital Signs: 04/11/25 21:42 04/11/25 22:12 04/11/25 22:19 Temperature 97.1 F L Temperature Source Temporal Pulse Rate 104 H 91 Respiratory Rate 18 21 H Respiratory Effort Normal Respiratory Depth Normal Respiratory Pattern Normal Blood Pressure 143/86 H 118/64 Blood Pressure Mean 105 82 Pulse Ox 92 92 Oxygen Delivery Method Room Air Room Air Room Air Oxygen Flow Rate (L/min) 04/11/25 22:35 04/11/25 22:38 04/11/25 22:51 Temperature Temperature Source Pulse Rate Respiratory Rate 16 Respiratory Effort Respiratory Depth Respiratory Pattern Blood Pressure Blood Pressure Mean Pulse Ox 85 94 Oxygen Delivery Method Room Air Nasal Cannula Room Air Oxygen Flow Rate (L/min) 2 04/11/25 23:00 04/11/25 23:20 Temperature Temperature Source Pulse Rate 82 92 Respiratory Rate 16 18 Respiratory Effort Respiratory Depth Respiratory Pattern Blood Pressure Blood Pressure Mean Pulse Ox 88 96 Oxygen Delivery Method Room Air Nasal Cannula Oxygen Flow Rate (L/min) 2 2 Positive well nourished and well developed; Negative for cachectic, contractures or unkempt General Appearance ED: well developed and NAD; Negative for unkempt, cachectic or contractures Nutritional Appearance: Negative for cachectic HEENT Reports normocephalic atraumatic; Negative for trauma, contusion, hematoma or tenderness Eyes PERRL and EOMs intact bilaterally General Eye ED: Negative for pale conjunctiva or scleral icterus Neck full ROM, no lymphadenopathy and supple General: Negative for tenderness Chest Wall inspection of chest normal and palpation of chest normal Resp normal respiratory effort, no retractions and clear to auscultation bilaterally Effort and Inspection: Negative for pain with movement Auscultation: Negative for rales, rhonchi, wheezes or diminished lung sounds Cardio regular rate, regular rhythm, S1 normal heart sound, S2 normal heart sound and no murmurs Cardio Narrative: Rate about 95. GI non-tender, non-distended and no masses Inspection: Negative for abdominal distention Auscultation: normoactive bowel sounds Palpation: soft; Negative for guarding or rebound tenderness present Back/Spine no CVA tenderness General Back: Negative for CVA tenderness Cervical Spine: Negative for cervical spine tenderness Lumbar Spine / Lower Back: Negative for lumbar spinal tenderness Neuro oriented x3, CN's II-XII intact bilaterally, moves all extremities and no focal motor deficits Sensorium / Orientation: alert, oriented to person, oriented to place and oriented to time Motor Exam: strength 5/5 throughout Psych mental status grossly normal and thought process normal Appearance: Negative for unkempt Mood & Affect: depressed and anxious Skin Lesions: no lesions Rashes: no rashes MDM MDM MDM Narrative Medical decision making narrative: 50-year-old female history of EtOH today. Collapsed at home. Unsure if she had LOC. Denies any injuries. Cardiac workup will be done along with an EtOH. Repeat exam at 12:07 AM patient doing well. We went over her test results. She became tearful when I discussed with him the alcohol level. She does not want detox. She said this was a one-time thing tonight. She said she normally does not drink like this. Has a lot of stress going on at home. Repeat exam is unchanged her abdomen is benign. She was given Zofran for nausea. Discharged home with family. She can sleep on the main floor tonight due to fall risk. No driving for next 24 hours. No alcohol next 24 hours. History & Record Review Discussion w/independent historian: Patient and Family Additional record(s) reviewed:: Prior inpatient record, Prior outpatient record, Prior ED visit and Prior labs Lab Data Attestation: I reviewed the patient's lab results. Lab results narrative: CBC shows a white count of 5. H&H 13 and 37. Platelets 246 Electrolytes show sodium 144. Potassium 3.2. Anion gap 16. BUN and creatinine 11 and 0.5. Glucose 131. Troponin less than 6. Lipase normal at 70. Urinalysis normal. Alcohol level elevated 328. Labs: Laboratory Results - last 24 hr 04/11/25 04/11/25 22:08 23:17 WBC 5.0 RBC 3.61 L Hgb 13.5 Hct 37.7 MCV 104.4 H MCH 37.4 H MCHC 35.8 RDW Std Deviation 51.4 H RDW Coeff of Braxton 13.5 Plt Count 246 MPV 9.6 Immature Gran % (Auto) 0.200 Neut % (Auto) 42.6 L Lymph % (Auto) 42.0 H Boyle % (Auto) 13.2 H Eos % (Auto) 0.8 Baso % (Auto) 1.2 H Absolute Neuts (auto) 2.1 Absolute Lymphs (auto) 2.10 Nucleated RBC % 0.4 Sodium 144 Potassium 3.2 L Chloride 100 Carbon Dioxide 28.2 Anion Gap 16 H BUN 11 Creatinine 0.53 L Estim Creat Clear Calc 112.09 Est GFR (MDRD) Non-Af 114 BUN/Creatinine Ratio 20.2 H Glucose 131 H Calcium 8.8 Troponin T High Sens < 6 Lipase 70 Urine Color Yellow Urine Clarity Clear Urine pH 7.0 Ur Specific [place] 1.010 Urine Protein 15 H Urine Glucose (UA) Normal Urine Ketones Negative Urine Occult Blood Negative Urine Nitrite Negative Urine Bilirubin Negative Urine Urobilinogen Normal Ur Leukocyte Esterase Negative Urine RBC 0 SEEN Urine WBC 0 SEEN Ur Squamous Epith Cells 0 SEEN Urine Bacteria 0 SEEN Urine Mucus 0 SEEN Ethyl Alcohol 328.0 H* Radiography Chest X-Ray - ED: 2 View and Read by ED Physician Diagnostic Testing: Clinical Impression(s) from Imaging Studies Chest X-Ray 04/11/25 22:55 IMPRESSION: NO ACUTE FINDINGS. Reading Location[facility] Rhythm Strip Rhythm Strip: Sinus Rhythm Rate: 78 Ectopy: None EKG Initial EKG: Attestation: I personally reviewed and interpreted this EKG as follows: Interpretation: Sinus Rhythm and No Acute Injury Pattern Comments: Normal sinus rhythm rate of 78 no acute signs of [place] or ischemia. Discharge Plan Triage Chief Complaint: Fall ED Provider: Francisco Colon Dx/Rx/DC Orders Clinical Impression: Fall, Acute alcohol intoxication, History of diabetes mellitus, History of COPD Instructions: ED Alcohol Intoxication Prescriptions: No Action metformin 500 mg tablet 500 ea PO BID magnesium 250 mg tablet 250 mg PO DAILY cholecalciferol (vitamin D3) 50 mcg (2,000 unit) capsule 50 mcg PO DAILY omega-3 fatty acids 1,000 mg capsule 1,000 mg PO DAILY albuterol sulfate 90 mcg/actuation HFA aerosol inhaler 2 puff inhalation Q6H PRN (Reason: shortness of breath or wheezing) Qty: 8.5 0RF aspirin 81 mg Tablet,Chewable 81 mg PO DAILY@0800 Qty: 30 0RF bupropion HCl 150 mg tablet extended release 24 hr 150 mg PO DAILY Patient Comments: take 1 tablet by mouth once daily montelukast [Singulair] 10 mg Tablet 10 mg PO DAILY budesonide-formoterol [Symbicort] 80-4.5 mcg/actuation Hfa Aerosol Inhaler 1 puff INHALATION BID pantoprazole 40 mg tablet,delayed release (DR/EC) 40 mg PO BID citalopram 40 mg tablet 40 mg PO DAILY lisinopril 40 mg tablet 40 mg PO DAILY magnesium oxide 250 mg magnesium tablet 250 mg PO BID levocetirizine 5 mg tablet 5 mg PO DAILY metoprolol succinate 25 mg tablet extended release 24 hr 25 mg PO DAILY Jardiance 25 mg tablet 25 mg PO DAILY buspirone 5 mg tablet 5 mg PO TID amlodipine 5 mg tablet 5 mg PO DAILY hydroxyzine HCl 10 mg tablet 10 mg PO TID PRN PRN (Reason: anxiety) ondansetron 4 mg tablet,disintegrating 4 mg PO Q8H PRN PRN (Reason: Nausea) Qty: 14 0RF potassium chloride 20 mEq packet 20 meq PO DAILY 5 Days Qty: 5 0RF atorvastatin 40 mg tablet 40 mg PO DAILY Qty: 30 6RF Primary Care Provider: Abisai Haley Referrals: Abisai Haley MD [Primary Care Provider] - 3-5 Days if not improving Activity Restrictions/Additional Instructions: Plenty of fluids and rest. Sleep on the main floor tonight. Due to fall risk. No driving for the next 24 hours. Use your Protonix at home for stomach discomfort due to the alcohol. Follow-up with your doctor if not improving or return if worse. Print Language: Cuban Disposition Disposition: Home, Self Care
--- NOTE | 2025-04-11 22:55 | RAD_ITS ---
PROCEDURE: CHEST PA AND LATERAL 04/11/2025 REASON FOR EXAM: CHEST PAIN TECHNIQUE: Frontal and lateral views of the chest. COMPARISON: 04/04/2025 FINDINGS: Hardware: None Heart: The heart size is normal. Mediastinum: The mediastinal contour is unremarkable. Lungs: The lungs are clear. Bones: The bones are unremarkable. RAD/Chest PA and Lateral IMPRESSION: NO ACUTE FINDINGS. Reading Location: [facility]
[2025-04-11 23:00] VITALS: PULSE 82; RESP 16; O2SAT 88
[2025-04-11 23:03] LABS: Absolute Neutrophil Count 2.1 X10^3/uL (2.0-7.7); Basophil# 0.06 X10^3/uL; Basophil% 1.2 % (0-1); Eosinophil# 0.04 X10^3/uL; Eosinophils% 0.8 % (0-5); Hematocrit 37.7 % (37-47); Hemoglobin 13.5 g/dL (12.0-15.0); Mean Corp Hgb Conc 35.8 g/dL (32-36); Mean Corpuscular Hgb 37.4 pg (27.0-32.0); Mean Corpuscular Volume 104.4 fL (81-99); Mean Platelet Vol. 9.6 fl (6.2-12.0); Monocyte# 0.66 X10^3/uL; Monocyte% 13.2 % (0-10); NRBC Flagged by Analyzer 0.4 % (0-5); Neutrophil # 2.13 X10^3/uL (2.7-7.7); Neutrophil % 42.6 % (47-70); Platelet Count 246 K/mm3 (150-450); RBC Distribution Width CV 13.5 % (11.6-14.6); RBC Distribution Width SD 51.4 fl (35.1-43.9); Red Blood Count 3.61 M/mm3 (4.2-5.4)
[2025-04-11 23:15] LABS: Anion Gap 16 (5-15); BUN 11 mg/dL (4-19); BUN/Creat Ratio 20.2 RATIO (10-20); Calcium,Total 8.8 mg/dL (7.6-11.0); Carbon Dioxide 28.2 mmol/L (21.0-32.0); Chloride 100 mmol/L (98-108); Creatinine, Serum 0.53 mg/dL (0.70-1.20); EST Glomerular Filtration Rate 114 (>60); Estimated Creatinine Clearance 112.09 ml/min (50-250); Glucose 131 mg/dL (70-99); Lipase 70 U/L (13-75); Potassium 3.2 mmol/L (3.3-5.1); Sodium Level 144 mmol/L (133-145); Troponin T High Sensitivity < 6 ng/L (<=14)
[2025-04-11 23:20] VITALS: PULSE 92; RESP 18; O2SAT 96
[2025-04-11 23:24] LABS: Bacteria 0 SEEN /hpf (None Seen); Mucous, Urine 0 SEEN /hpf (<or=2+); Red Blood Cells-Urine 0 SEEN /hpf (0-5); Squamous Epithelial Cells - UA 0 SEEN /hpf (5-10); White Blood Cells 0 SEEN /hpf (0-5)
[2025-04-11 23:26] LABS: Color, Urine Yellow (Yellow); Glucose, Dipstick Normal (Normal); Ketone-Dipstick Negative (Negative); Leukocyte Esterase-Dipstick Negative /ul (Negative); Nitrite-Dipstick Negative (Negative); Occult Blood-Urine Negative /ul (Negative); Protein-Dipstick 15 mg/dl (Negative); Urine Bilirubin Dipstick Negative (Negative); Urine Clarity Clear (Clear); Urine Urobilinogen Normal (Normal)
[2025-04-12] MEDS: Ondansetron 4 MG/2 ML Vial IV (00:22)
[2025-04-12 00:24] VITALS: BP 125/66; PULSE 78; RESP 16; TEMP 36.6; O2SAT 100
== END 2025-04-12 00:25 | disposition home or self-care (01) ==
PROVIDERS: Emergency Provider Emergency Medicine; PCP Family Medicine; Visit Provider Emergency Medicine
DX: F10.129 Alcohol abuse with intoxication, unspecified (principal); J44.9 Chronic obstructive pulmonary disease, unspecified; E11.9 Type 2 diabetes mellitus without complications; I10 Essential (primary) hypertension; Z83.3 Family history of diabetes mellitus; Y90.8 Blood alcohol level of 240 mg/100 ml or more; I25.2 Old myocardial infarction; Z99.89 Dependence on other enabling machines and devices; Z90.49 Acquired absence of other specified parts of digestive tract; F17.210 Nicotine dependence, cigarettes, uncomplicated; W19.XXXA Unspecified fall, initial encounter; F41.9 Anxiety disorder, unspecified; R19.7 Diarrhea, unspecified; R11.2 Nausea with vomiting, unspecified
CPT/HCPCS: 71046; 80048; 81001; 82077; 83690; 84484; 85025; 93005; 99285; A4216; J2405

== ENCOUNTER 2025-04-26 13:41 | Inpatient (IN) | payer SELFPAY ==
[2025-04-26] VITALS (10 sets, daily range): BP systolic 143–215; BP diastolic 77–95; PULSE 79–104; RESP 14–29; TEMP 36.6–36.7; O2SAT 94–99; BMI 22.3; BMI 22.5
--- NOTE | 2025-04-26 14:17 | CT_ITS ---
PROCEDURE: ABDOMEN/PELVIS W IV CONT ONLY 04/26/2025 REASON FOR EXAM: DIFFUSE PAIN TECHNIQUE: Abdomen and pelvis CT with intravenous contrast. Coronal and Sagittal reconstruction series were provided. PATIENT PREPARATION: Per protocol ORAL CONTRAST TYPE: None. CONTRAST: Isovue-300 VOLUME: 100 mL One or more dose reduction techniques were used (e.g., Automated exposure control, adjustment of the mA and/or kV according to patient size, use of iterative reconstruction technique. RADIATION DOSE SUMMARY: CTDlvol: 11 mGy DLP: 588.06 mGycm COMPARISON: Prior study dated April 04, 2025. FINDINGS: Lung bases: Lung bases are clear. Liver: Diffuse fatty infiltration.. Stable focal geographic focal steatosis along the anterior falciform ligament. Gallbladder: Surgically absent. Spleen: Normal size. Pancreas: Diffuse enlargement of the pancreas with the peripancreatic edematous changes. Increased markings in the surrounding fat. Findings in keeping with acute pancreatitis. Calcifications are seen in the head of the pancreas. Findings in keeping with acute pancreatitis superimposed on chronic pancreatitis. Adrenals: Unremarkable Kidneys: Normal renal sizes. No hydronephrosis. Bladder: Unremarkable Reproductive Organs: Small right ovarian follicles. Bowel: Colonic diverticulosis without diverticulitis. Appendix: The appendix is not identified. There is no inflammatory process identified in the right lower quadrant to suggest appendicitis. Lymph nodes: Unremarkable. Vasculature: Mild diffuse atherosclerotic calcifications are noted. Peritoneum / Retroperitoneum: No free fluid. Bones: Degenerative changes of the spine. CT/Abdomen/Pelvis W IV Cont ONLY IMPRESSION: Findings in keeping with acute pancreatitis superimposed on chronic pancreatiti s. Diffuse fatty infiltration of the liver. Reading Location: [id number]
--- NOTE | 2025-04-26 14:18 | EX.ED.DYSGE1 ---
HPI History of Present Illness Chief Complaint: Abd Pain Narrative Narrative: Patient is a 42-year-old female with past medical history of alcohol abuse but states that she has not drank since November, COPD, seizures, MOUNIKA, type 2 diabetes, hypertension who presents to the emergency department chief complaint abdominal pain, nausea, vomiting, diarrhea. Patient states that she has been sick for approximately 4 days now and states that she cannot keep anything down. She states that since her symptoms were not improving she came here for further evaluation management. Patient denies any previous abdominal surgery she states that she is passing gas and has normal colored stool. Patient denies any recent contacts [facility] Medical History Strain of left foot Plantar fasciitis of left foot Acute otitis media, right Contact with or exposure to other viral diseases URI (upper respiratory infection) Alcohol abuse GERD (gastroesophageal reflux disease) CPAP (continuous positive airway pressure) dependence Smoker COPD (chronic obstructive pulmonary disease) Myocardial infarct Seizures History of left heart catheterization (LHC) (~11/19/22) Sleep apnea Pancreatitis Acute lumbar myofascial strain Strain of left hip Depression Anxiety Diabetes HTN (hypertension) Type 2 diabetes mellitus Home Medications ?Medication ?Instructions ?Recorded ?Last Taken ?Type metformin 500 mg tablet 500 ea PO BID DIABETES 10/31/22 11/17/22 21:30 History aspirin 81 mg chewable tablet 81 mg PO DAILY@0800 #30 tabs 11/19/22 Unknown Rx bupropion HCl 150 mg 24 hr tablet, 150 mg PO DAILY 01/21/23 Unknown History extended release budesonide-formoterol HFA 80 1 puff inhalation BID 04/09/23 Unknown History mcg-4.5 mcg/actuation aerosol inhaler (Symbicort) montelukast 10 mg tablet 10 mg PO DAILY 04/09/23 Unknown History (Singulair) pantoprazole 40 mg tablet,delayed 40 mg PO BID 05/04/23 Unknown History release cholecalciferol (vitamin D3) 50 50 mcg PO DAILY 08/25/23 Unknown History mcg (2,000 unit) capsule magnesium 250 mg tablet 250 mg PO DAILY 08/25/23 Unknown History omega-3 fatty acids 1,000 mg 1,000 mg PO DAILY 08/25/23 Unknown History capsule albuterol sulfate 90 mcg/actuation 2 puff inhalation Q6H PRN 04/27/24 Unknown Rx aerosol inhaler shortness of breath or wheezing #8.5 grams empagliflozin 25 mg tablet 25 mg PO DAILY 11/12/24 Unknown History (Jardiance) metoprolol succinate 25 mg 25 mg PO DAILY 11/12/24 Unknown History tablet,extended release 24 hr amlodipine 5 mg tablet 5 mg PO DAILY 04/04/25 Unknown History buspirone 5 mg tablet 5 mg PO TID 04/04/25 Unknown History hydroxyzine HCl 10 mg tablet 10 mg PO TID PRN PRN anxiety 04/04/25 Unknown History ondansetron 4 mg disintegrating 4 mg PO Q8H PRN PRN Nausea #14 tabs 04/04/25 Unknown Rx tablet citalopram 40 mg tablet 40 mg PO DAILY 04/11/25 Unknown History levocetirizine 5 mg tablet 5 mg PO DAILY 04/11/25 Unknown History lisinopril 40 mg tablet 40 mg PO DAILY 04/11/25 Unknown History atorvastatin 40 mg tablet 40 mg PO DAILY #30 tabs 04/16/25 Unknown Rx budesonide-formoterol HFA 160 2 puff inhalation BID 04/26/25 Unknown History mcg-4.5 mcg/actuation aerosol inhaler Allergy/AdvReac Type Severity Reaction Status Date / Time No Known Allergies Allergy Verified 04/26/25 13:44 Family History Grandfather CVA (cerebral vascular accident) Diabetes Mother Cancer Father Hypertension Grandmother Hypertension Diabetes Surgical History History of cholecystectomy H/O tooth extraction plantar fasciitis release Social History household members: spouse and children housing: house pets and animals: Yes Smoking Status: Light Smoker (<10/day) alcohol intake: current alcohol intake frequency: a few times a month Alcohol type: hard liquor substance use type: does not use ROS ROS ED ROS Narrative Constitutional: Denies any fevers, chills, headaches Cardiovascular: Denies chest pain Respiratory: Denies shortness of breath Abdomen: Complains of abdominal pain nausea vomiting diarrhea as noted above : Denies urinary symptoms Neurological: Denies numbness, weakness, tingling Musculoskeletal: States that her abdominal pain radiates to her back Skin: Denies any rashes or lesions EXAM Physical Exam Narrative Exam Narrative: General: Patient lying in bed did appear to be uncomfortable secondary to her abdominal pain Head: Atraumatic, normocephalic Eyes: PERRL bilaterally, EOMI bilaterally, no conjunctival injection noted Neck: Soft, supple, trachea midline Cardiovascular: Regular rate and rhythm Respiratory: Clear to auscultation bilaterally Abdomen: Soft, nondistended, diffuse tenderness to palpation no rebound or guarding on exam Extremities: +5/5 strength noted in the bilateral upper and lower extremities, no pedal edema no exam Neurological: Patient following commands knew that she was at [facility] the year is 2024 Skin: Warm, dry, intact no rashes or lesions noted Const Vital Signs: 04/26/25 13:42 04/26/25 15:41 04/26/25 15:52 Temperature 97.8 F Temperature Source Oral Pulse Rate 81 80 82 Respiratory Rate 16 16 20 H Blood Pressure 143/77 H 173/80 H 194/86 H Blood Pressure Mean 99 111 122 Blood Pressure Source Monitor Blood Pressure Position Semi-Fowlers Blood Pressure Location Right Arm Pulse Ox 94 99 97 Oxygen Delivery Method Room Air Room Air Room Air 04/26/25 16:19 Temperature 98.1 F Temperature Source Pulse Rate 79 Respiratory Rate 19 H Blood Pressure 194/86 H Blood Pressure Mean 122 Blood Pressure Source Blood Pressure Position Blood Pressure Location Pulse Ox 97 Oxygen Delivery Method MDM MDM MDM Narrative Medical decision making narrative: Patient is a 42-year-old female who presented to the emergency department chief complaint abdominal pain. On the differential diagnosis includes but not limited to pancreatitis, cholecystitis, bowel obstruction, viral gastroenteritis, appendicitis, diverticulitis. Once workup is obtained and reviewed she will be reevaluated. Patient be given IV fluids, Zofran, Bentyl. Patient CBC reviewed and showed no evidence leukocytosis white blood count normal 10.4, hemoglobin is 14.8, plate count 3175. Patient's sodium was noted be 139, patient was hypokalemic with potassium of 2.8 she will be given 40 mill colons orally and 40 mill equivalents IV, anion gap of 36, creatinine was 0.70. Patient's AST and ALT are 127 and 62 respectively. Patient lipase is pending. Patient's CT abdomen pelvis with IV contrast was reviewed which showed findings consistent with acute pancreatitis superimposed on chronic pancreatitis diffuse fatty infiltration of the liver. Patient was still vomiting and she was given 5 mg of IV Reglan. Reevaluation patient she is still nauseous will be given another 5 mg of Reglan. We will check a alcohol level as nurse staff notified me recently she was here with a high alcohol level despite her saying that she has not drank since November. Her anion gap could be secondary to alcohol use will also put her on CIWA protocol. This point time will discuss case with hospitalist for admission for intractable abdominal pain nausea vomiting the setting of acute pancreatitis. Discussed case with hospitalist Dr. Moncada who accept patient for admission. Patient was notified is agreeable spinal course concerns answered. Lab Data Labs: Laboratory Results - last 24 hr 04/26/25 04/26/25 04/26/25 14:22 16:05 16:12 WBC 10.4 RBC 4.09 L Hgb 14.8 Hct 42.8 MCV 104.6 H MCH 36.2 H MCHC 34.6 RDW Std Deviation 49.4 H RDW Coeff of Braxton 12.8 Plt Count 175 MPV 10.0 Immature Gran % (Auto) 0.700 Neut % (Auto) 84.6 H Lymph % (Auto) 7.3 L [place] % (Auto) 7.0 Eos % (Auto) 0.0 Baso % (Auto) 0.4 Absolute Neuts (auto) 8.8 H Absolute Lymphs (auto) 0.76 L Nucleated RBC % 0.2 Sodium 139 Potassium 2.8 L Chloride 87 L Carbon Dioxide 16.4 L Anion Gap 36 H BUN 8 Creatinine 0.70 Estim Creat Clear Calc 84.87 Est GFR (MDRD) Non-Af 107 BUN/Creatinine Ratio 11.2 Glucose 156 H Calcium 8.9 Total Bilirubin 1.42 H AST 127 H ALT 62 H Alkaline Phosphatase 122 H Total Protein 7.7 Albumin 4.5 Globulin 3.2 Albumin/Globulin Ratio 1.4 Lipase 1045 H Urine Color Yellow Urine Clarity Clear Urine pH 6.0 Ur Specific [employer] 1.010 Urine Protein 30 H Urine Glucose (UA) 1000 H Urine Ketones 150 A* Urine Occult Blood 10 H Urine Nitrite Negative Urine Bilirubin Negative Urine Urobilinogen 1 H Ur Leukocyte Esterase Negative Ethyl Alcohol < 10.1 Radiography Diagnostic Testing: Clinical Impression(s) from Imaging Studies Abdomen/Pelvis CT 04/26/25 14:17 IMPRESSION: Findings in keeping with acute pancreatitis superimposed on chronic pancreatitis. Diffuse fatty infiltration of the liver. Reading Location: [facility] Discharge Plan Triage Chief Complaint: Abd Pain ED Provider: Humphrey Garcia Dx/Rx/DC Orders Clinical Impression: Intractable abdominal pain, Nausea & vomiting, Hypokalemia, Pancreatitis Prescriptions: No Action metformin 500 mg tablet 500 ea PO BID magnesium 250 mg tablet 250 mg PO DAILY cholecalciferol (vitamin D3) 50 mcg (2,000 unit) capsule 50 mcg PO DAILY omega-3 fatty acids 1,000 mg capsule 1,000 mg PO DAILY albuterol sulfate 90 mcg/actuation HFA aerosol inhaler 2 puff inhalation Q6H PRN (Reason: shortness of breath or wheezing) Qty: 8.5 0RF aspirin 81 mg Tablet,Chewable 81 mg PO DAILY@0800 Qty: 30 0RF bupropion HCl 150 mg tablet extended release 24 hr 150 mg PO DAILY Patient Comments: take 1 tablet by mouth once daily montelukast [Singulair] 10 mg Tablet 10 mg PO DAILY budesonide-formoterol [Symbicort] 80-4.5 mcg/actuation Hfa Aerosol Inhaler 1 puff INHALATION BID pantoprazole 40 mg tablet,delayed release (DR/EC) 40 mg PO BID citalopram 40 mg tablet 40 mg PO DAILY lisinopril 40 mg tablet 40 mg PO DAILY levocetirizine 5 mg tablet 5 mg PO DAILY metoprolol succinate 25 mg tablet extended release 24 hr 25 mg PO DAILY Jardiance 25 mg tablet 25 mg PO DAILY buspirone 5 mg tablet 5 mg PO TID amlodipine 5 mg tablet 5 mg PO DAILY hydroxyzine HCl 10 mg tablet 10 mg PO TID PRN PRN (Reason: anxiety) ondansetron 4 mg tablet,disintegrating 4 mg PO Q8H PRN PRN (Reason: Nausea) Qty: 14 0RF budesonide-formoterol 160-4.5 mcg/actuation HFA aerosol inhaler 2 puff INHALATION BID atorvastatin 40 mg tablet 40 mg PO DAILY Qty: 30 6RF Primary Care Provider: Abisai Haley Referrals: Abisai Haley MD [Primary Care Provider] - Print Language: Estonian Disposition Disposition: Acute Care Hospital [facility]
[2025-04-26] MEDS: Ondansetron 4 MG/2 ML Vial IV (14:27)
[2025-04-26] MEDS: 0.9% Normal Saline (1000mL) 1,000 ML 999 ML IV (14:28)
[2025-04-26] MEDS: Dicyclomine 20 MG/2 ML Vial IM (14:29)
[2025-04-26 14:41] LABS: Absolute Lymphocyte Count 0.76 X10^3/uL (0.83-4.51); Absolute Neutrophil Count 8.8 X10^3/uL (2.0-7.7); Basophil# 0.04 X10^3/uL; Basophil% 0.4 % (0-1); Hematocrit 42.8 % (37-47); Hemoglobin 14.8 g/dL (12.0-15.0); Lymphocyte # 0.76 X10^3/ul (0.83-4.51); Lymphocyte % 7.3 % (19-41); Mean Corp Hgb Conc 34.6 g/dL (32-36); Mean Corpuscular Hgb 36.2 pg (27.0-32.0); Mean Corpuscular Volume 104.6 fL (81-99); Monocyte# 0.73 X10^3/uL; NRBC Flagged by Analyzer 0.2 % (0-5); Neutrophil # 8.76 X10^3/uL (2.7-7.7); Neutrophil % 84.6 % (47-70); Platelet Count 175 K/mm3 (150-450); RBC Distribution Width CV 12.8 % (11.6-14.6); RBC Distribution Width SD 49.4 fl (35.1-43.9); Red Blood Count 4.09 M/mm3 (4.2-5.4); White Blood Count 10.4 K/mm3 (4.4-11.0)
[2025-04-26] MEDS: Metoclopramide 10 MG/2 ML Vial 5 MG IV ×2 (15:29→15:41)
[2025-04-26] MEDS: Morphine 4 MG/ML Syringe IV ×2 (15:30→16:26)
[2025-04-26 15:38] LABS: ALB/GLOB Ratio 1.4 RATIO (0.9-2.4); AST(SGOT) 127 U/L (<=31); Alanine Aminotransfer ALT/SGPT 62 U/L (<=34); Albumin, Serum 4.5 g/dL (3.5-5.0); Alkaline Phosphatase 122 U/L (35-104); Anion Gap 36 (5-15); BUN 8 mg/dL (4-19); BUN/Creat Ratio 11.2 RATIO (10-20); Calcium,Total 8.9 mg/dL (7.6-11.0); Carbon Dioxide 16.4 mmol/L (21.0-32.0); Chloride 87 mmol/L (98-108); EST Glomerular Filtration Rate 107 (>60); Estimated Creatinine Clearance 84.87 ml/min (50-250); Globulin 3.2 g/dL (2.2-4.2); Glucose 156 mg/dL (70-99); Potassium 2.8 mmol/L (3.3-5.1); Protein, Total 7.7 g/dL (5.9-8.4); Sodium Level 139 mmol/L (133-145); Total Bilirubin 1.42 mg/dL (0.00-1.30)
[2025-04-26] MEDS: Potassium Chloride Oral Tablet 20 MEQ 60 MEQ PO (16:00)
[2025-04-26 16:03] LABS: Lipase 1045 U/L (13-75)
[2025-04-26] MEDS: Potassium Chloride 10mEq/100mL 10 MEQ/100 ML IV.SOLN. 100 MEQ IV BOLUS ×4 (16:17→20:01)
[2025-04-26 16:18] LABS: Bacteria 0 SEEN /hpf (None Seen); Mucous, Urine 0 SEEN /hpf (<or=2+); White Blood Cells 0 SEEN /hpf (0-5)
[2025-04-26 16:19] LABS: Color, Urine Yellow (Yellow); Glucose, Dipstick 1000 mg/dl (Normal); Leukocyte Esterase-Dipstick Negative /ul (Negative); Nitrite-Dipstick Negative (Negative); Occult Blood-Urine 10 /ul (Negative); Protein-Dipstick 30 mg/dl (Negative); Urine Bilirubin Dipstick Negative (Negative); Urine Clarity Clear (Clear); Urine Urobilinogen 1 mg/dl (Normal)
[2025-04-26 16:38] LABS: Alcohol, Blood (Medical)-Serum < 10.1 mg/dL (<=10.0)
[2025-04-26 16:40] LABS: Ketone-Dipstick 150 mg/dl (Negative)
[2025-04-26 16:46] LABS: Red Blood Cells-Urine 0-5 SEEN /hpf (0-5); Squamous Epithelial Cells - UA 0-5 SEEN /hpf (5-10)
--- NOTE | 2025-04-26 17:18 | PCM.HP.STD ---
HPI - General General Date of Admission: 04/26/25 Date of Service: 04/26/25 Chief Complaint: Abdominal pain HPI Narrative JOSEPH RINCON, is a 50 F with past medical history of alcohol abuse, chronic nicotine dependence, prior episodes of pancreatitis, anxiety, type 2 diabetes on metformin and empagliflozin, suspected bronchitis, hypertension on amlodipine, lisinopril 40, metoprolol succinate and GERD who presents to the ED with concerns regarding ongoing nausea and vomiting for the last 3 to 4 days with associated severe abdominal pain that is radiating to the back for the last 1 day. She has had previous symptoms of similar abdominal pain that was diagnosed with acute pancreatitis in the past. She has severe significantly cut down on her alcohol use and last drink was few days back Continues to smoke about half pack daily No family history of pancreatitis. She has had 4 episodes of pancreatitis in the past including 1 episode of bloody pseudocyst formation that required endoscopic aspiration. No recent weight changes, no chronic diarrhea or steatorrhea At the time of evaluation in the ED, WBC 10.4, hemoglobin 14.8 platelet count 175 sodium 139, potassium 2.8, chloride 87, BUN 8, creatinine 0.7, glucose 156, total bilirubin 1.4, AST 127, ALT 62, alkaline phosphatase 122 total protein 7.7, albumin 4.5 [facility] Medical History Strain of left foot Plantar fasciitis of left foot Acute otitis media, right Contact with or exposure to other viral diseases URI (upper respiratory infection) Alcohol abuse GERD (gastroesophageal reflux disease) CPAP (continuous positive airway pressure) dependence Smoker COPD (chronic obstructive pulmonary disease) Myocardial infarct Seizures History of left heart catheterization (LHC) (~11/19/22) Sleep apnea Pancreatitis Acute lumbar myofascial strain Strain of left hip Depression Anxiety Diabetes HTN (hypertension) Type 2 diabetes mellitus Home Medications ?Medication ?Instructions ?Recorded ?Last Taken ?Type metformin 500 mg tablet 500 ea PO BID DIABETES 10/31/22 11/17/22 21:30 History aspirin 81 mg chewable tablet 81 mg PO DAILY@0800 #30 tabs 11/19/22 04/26/25 Rx bupropion HCl 150 mg 24 hr tablet, 150 mg PO DAILY 01/21/23 Unknown History extended release budesonide-formoterol HFA 80 1 puff inhalation BID SOB/wheezing 04/09/23 04/26/25 History mcg-4.5 mcg/actuation aerosol inhaler (Symbicort) montelukast 10 mg tablet 10 mg PO DAILY 04/09/23 Unknown History (Singulair) pantoprazole 40 mg tablet,delayed 40 mg PO BID 05/04/23 Unknown History release cholecalciferol (vitamin D3) 50 50 mcg PO DAILY 08/25/23 Unknown History mcg (2,000 unit) capsule magnesium 250 mg tablet 250 mg PO DAILY 08/25/23 Unknown History omega-3 fatty acids 1,000 mg 1,000 mg PO DAILY 08/25/23 Unknown History capsule albuterol sulfate 90 mcg/actuation 2 puff inhalation Q6H PRN 04/27/24 Unknown Rx aerosol inhaler shortness of breath or wheezing #8.5 grams empagliflozin 25 mg tablet 25 mg PO DAILY 11/12/24 Unknown History (Jardiance) metoprolol succinate 25 mg 25 mg PO DAILY 11/12/24 Unknown History tablet,extended release 24 hr amlodipine 5 mg tablet 5 mg PO DAILY 04/04/25 Unknown History buspirone 5 mg tablet 5 mg PO TID 04/04/25 Unknown History hydroxyzine HCl 10 mg tablet 10 mg PO TID PRN PRN anxiety 04/04/25 Unknown History citalopram 40 mg tablet 40 mg PO DAILY 04/11/25 Unknown History levocetirizine 5 mg tablet 5 mg PO DAILY 04/11/25 Unknown History lisinopril 40 mg tablet 40 mg PO DAILY 04/11/25 Unknown History atorvastatin 40 mg tablet 40 mg PO DAILY #30 tabs 04/16/25 Unknown Rx budesonide-formoterol HFA 160 2 puff inhalation BID SOB 04/26/25 Unknown History mcg-4.5 mcg/actuation aerosol inhaler Allergy/AdvReac Type Severity Reaction Status Date / Time No Known Allergies Allergy Verified 04/26/25 13:44 Family History Grandfather CVA (cerebral vascular accident) Diabetes Mother Cancer Father Hypertension Grandmother Hypertension Diabetes Surgical History History of cholecystectomy H/O tooth extraction plantar fasciitis release Social History household members: spouse and children housing: house pets and animals: Yes Smoking Status: Light Smoker (<10/day) alcohol intake: current alcohol intake frequency: a few times a month Alcohol type: hard liquor substance use type: does not use Vital Signs Vital Signs Vital Signs: 04/26/25 13:42 04/26/25 15:41 04/26/25 15:52 Temperature 97.8 F Temperature Source Oral Pulse Rate 81 80 82 Respiratory Rate 16 16 20 H Blood Pressure 143/77 H 173/80 H 194/86 H Blood Pressure Mean 99 111 122 Blood Pressure Source Monitor Blood Pressure Position Semi-Fowlers Blood Pressure Location Right Arm Pulse Ox 94 99 97 Oxygen Delivery Method Room Air Room Air Room Air 04/26/25 16:19 04/26/25 16:34 04/26/25 16:45 Temperature 98.1 F Temperature Source Pulse Rate 79 86 Respiratory Rate 19 H 14 Blood Pressure 194/86 H 176/80 H Blood Pressure Mean 122 108 Blood Pressure Source Blood Pressure Position Blood Pressure Location Pulse Ox 97 96 Oxygen Delivery Method 04/26/25 17:00 Temperature Temperature Source Pulse Rate 90 Respiratory Rate 29 H Blood Pressure 169/86 H Blood Pressure Mean 110 Blood Pressure Source Blood Pressure Position Blood Pressure Location Pulse Ox 95 Oxygen Delivery Method Room Air Weight Weight: 130 lb Body Mass Index (BMI) 22.3 Physical Exam Const alert and oriented x3 HEENT normocephalic and head/scalp atraumatic Eyes PERRL and EOMs intact bilaterally Neck no lymphadenopathy Resp normal respiratory effort Cardio regular rate and regular rhythm GI GI Narrative: Tenderness present on superficial palpation in the epigastric region Extremity normal to inspection Neuro oriented x3, CN's II-XII intact bilaterally, moves all extremities and no focal motor deficits Results Medical Records Data Attestation: I reviewed the patient's medical records Lab / Micro Data Attestation: I reviewed the patient's lab results. 04/26/25 14:22 04/26/25 14:22 Labs: Laboratory Results - last 24 hr 04/26/25 14:22: WBC 10.4, RBC 4.09 L, Hgb 14.8, Hct 42.8, MCV 104.6 H, MCH 36.2 H, MCHC 34.6, RDW Std Deviation 49.4 H, RDW Coeff of [place]xton 12.8, Plt Count 175, MPV 10.0, Immature Gran % (Auto) 0.700, Neut % (Auto) 84.6 H, Lymph % (Auto) 7.3 L, [place] % (Auto) 7.0, Eos % (Auto) 0.0, Baso % (Auto) 0.4, Absolute Neuts (auto) 8.8 H, Absolute Lymphs (auto) 0.76 L, Nucleated RBC % 0.2, Sodium 139, Potassium 2.8 L, Chloride 87 L, Carbon Dioxide 16.4 L, Anion Gap 36 H, BUN 8, Creatinine 0.70, Estim Creat Clear Calc 84.87, Est GFR (MDRD) Non-Af 107, BUN/Creatinine Ratio 11.2, Glucose 156 H, Calcium 8.9, Total Bilirubin 1.42 H, AST 127 H, ALT 62 H, Alkaline Phosphatase 122 H, Total Protein 7.7, Albumin 4.5, Globulin 3.2, Albumin/Globulin Ratio 1.4, Lipase 1045 H 04/26/25 16:05: Ethyl Alcohol < 10.1 04/26/25 16:12: Urine Color Yellow, Urine Clarity Clear, Urine pH 6.0, Ur Specific [place] 1.010, Urine Protein 30 H, Urine Glucose (UA) 1000 H, Urine Ketones 150 A*, Urine Occult Blood 10 H, Urine Nitrite Negative, Urine Bilirubin Negative, Urine Urobilinogen 1 H, Ur Leukocyte Esterase Negative, Urine RBC 0-5 SEEN, Urine WBC 0 SEEN, Ur Squamous Epith Cells 0-5 SEEN, Urine Bacteria 0 SEEN, Urine Mucus 0 SEEN Imaging Radiology Impression Abdomen/Pelvis CT 04/26/25 14:17 IMPRESSION: Findings in keeping with acute pancreatitis superimposed on chronic pancreatitis. Diffuse fatty infiltration of the liver. Reading Location: [id number] Assessment & Plan Assessment/Plan (1) Pancreatitis: PLAN: Plan 50-year-old female with past medical history of alcohol abuse, chronic nicotine dependence, prior episodes of pancreatitis, anxiety, type 2 diabetes on metformin and empagliflozin, suspected bronchitis, hypertension on amlodipine, lisinopril 40, metoprolol succinate and GERD presented to the hospital with concerns regarding ongoing abdominal pain for the last 2 days that is radiating to the back with findings of like elevated lipase and also edematous pancreas on cross-sectional imaging. #Acute on chronic pancreatitis - Has chronic pancreatitis based on imaging findings - No concerns regarding exocrine insufficiency - [place] pain control with Tylenol and opioids - IV LR at the rate of mL 1.5 mL/kg for 12 hours - Full liquid diet and will advance as tolerated - Likely reason for her episodes of pancreatitis is the ongoing smoking - IV Zofran for nausea/ vomiting control - Establish follow up in the GI clinic for pancreatitis #Hypokalemia - This is in the setting of ongoing diarrhea, nausea vomiting - Received correction in the ED - Repeat potassium levels # Elevated liver enzymes - Findings suspicious for acute alcoholic otitis - Monitor INR, if elevated will calculate Madrey score #Alcohol abuse - Last drink was 2 days back - No concerns regarding withdrawal -Importance of maintaining abstinence was emphasized #Chronic smoking - Smokes about half pack daily - Nicotine replacement therapy while admitted # Diabetes - HbA1c levels - Insulin as per sliding scale - Risk of medication related pancreatitis is low with the current medications, also the medicines are not new # Depression: - Continue home medications - No active concerns # HTN - Continue home medications # Full code # DVT prophylaxis: Enoxaparin subcutaneous
[2025-04-26] MEDS: HYDROmorphone Inj 0.2 MG/ML SYRINGE IV (20:01)
[2025-04-26] MEDS: Lactated Ringers 1,000 ML 100 ML IV (20:01)
[2025-04-26 21:53] LABS: Prothrombin Time (Protime)PT. 13.3 SECONDS (11.7-14.9)
[2025-04-26] MEDS: Pantoprazole Sodium 40 MG Tablet PO (22:17)
[2025-04-26] MEDS: busPIRone 5 MG Tablet PO (22:17)
[2025-04-26] MEDS: HYDROmorphone 1 MG/ML Syringe IV (23:06)
[2025-04-27] VITALS (10 sets, daily range): BP systolic 124–156; BP diastolic 73–84; PULSE 81–130; RESP 16–20; TEMP 35.3–37.2; O2SAT 92–97
[2025-04-27 01:53] LABS: Absolute Lymphocyte Count 0.83 X10^3/uL (0.83-4.51); Absolute Neutrophil Count 9.6 X10^3/uL (2.0-7.7); Basophil# 0.03 X10^3/uL; Basophil% 0.3 % (0-1); Eosinophil# 0.01 X10^3/uL; Eosinophils% 0.1 % (0-5); Hematocrit 39.2 % (37-47); Hemoglobin 13.5 g/dL (12.0-15.0); Lymphocyte # 0.83 X10^3/ul (0.83-4.51); Lymphocyte % 7.3 % (19-41); Mean Corp Hgb Conc 34.4 g/dL (32-36); Mean Corpuscular Hgb 36.6 pg (27.0-32.0); Mean Corpuscular Volume 106.2 fL (81-99); Mean Platelet Vol. 9.7 fl (6.2-12.0); Monocyte% 7.9 % (0-10); NRBC Flagged by Analyzer 0 % (0-5); Neutrophil # 9.58 X10^3/uL (2.7-7.7); Platelet Count 153 K/mm3 (150-450); RBC Distribution Width CV 12.7 % (11.6-14.6); RBC Distribution Width SD 49.7 fl (35.1-43.9); Red Blood Count 3.69 M/mm3 (4.2-5.4); White Blood Count 11.4 K/mm3 (4.4-11.0)
[2025-04-27 01:59] LABS: Prothrombin Time (Protime)PT. 12.9 SECONDS (11.7-14.9)
[2025-04-27 02:14] LABS: ALB/GLOB Ratio 1.4 RATIO (0.9-2.4); AST(SGOT) 96 U/L (<=31); Alanine Aminotransfer ALT/SGPT 46 U/L (<=34); Albumin, Serum 3.9 g/dL (3.5-5.0); Alkaline Phosphatase 98 U/L (35-104); Anion Gap 22 (5-15); BUN 6 mg/dL (4-19); BUN/Creat Ratio 9.1 RATIO (10-20); Bilirubin, Direct 0.54 mg/dL (0.00-0.30); Chloride 96 mmol/L (98-108); Creatinine, Serum 0.69 mg/dL (0.70-1.20); EST Glomerular Filtration Rate 107 (>60); Globulin 2.7 g/dL (2.2-4.2); Glucose 132 mg/dL (70-99); Magnesium 0.9 mg/dL (1.5-2.2); Phosphorus 3.3 mg/dL (2.7-4.5); Potassium 3.8 mmol/L (3.3-5.1); Protein, Total 6.6 g/dL (5.9-8.4); Sodium Level 134 mmol/L (133-145); Total Bilirubin 0.99 mg/dL (0.00-1.30)
[2025-04-27] MEDS: HYDROmorphone 1 MG/ML Syringe IV ×5 (03:09→20:48)
[2025-04-27] MEDS: Magnesium Sulfate 4gm/100mL 4 GM/100 ML IV.SOLN. IV (03:15)
[2025-04-27] MEDS: Lactated Ringers 1,000 ML 150 ML IV (03:18)
[2025-04-27] MEDS: busPIRone 5 MG Tablet PO ×3 (06:24→23:38)
[2025-04-27 06:49] LABS: Bedside Glucose 107 mg/dL (74-106)
[2025-04-27] MEDS: Albuterol 2.5 MG/3 ML VIAL.NEB. INHALATION ×2 (07:28→19:53)
[2025-04-27] MEDS: Budesonide Respules 0.5 MG/2 ML AMPUL.NEB. INHALATION ×2 (07:28→19:53)
[2025-04-27] MEDS: 0.9% Saline Lock 10 ML Syringe IV ×4 (07:44→23:37)
[2025-04-27] MEDS: Aspirin 81 MG TAB.CHEW PO (09:15)
[2025-04-27] MEDS: Citalopram 40 MG TABLET PO (09:15)
[2025-04-27] MEDS: Atorvastatin Calcium 40 MG Tablet PO (09:15)
[2025-04-27] MEDS: amLODIPine 5 MG Tablet PO (09:16)
[2025-04-27] MEDS: buPROPion (XL) 150 MG TABLET.XL PO (09:16)
[2025-04-27] MEDS: Montelukast 10 MG Tablet PO (09:16)
[2025-04-27] MEDS: Metoprolol(XL)Succ 25 MG Tablet PO (09:16)
[2025-04-27] MEDS: Magnesium Chloride 64 MG Delay Rel.Tablet PO (09:16)
[2025-04-27] MEDS: Pantoprazole Sodium 40 MG Tablet PO ×2 (09:16→23:39)
[2025-04-27] MEDS: Lisinopril 40 MG Tablet PO (09:16)
[2025-04-27] MEDS: Enoxaparin 40 MG/0.4 ML Syringe SC (09:16)
[2025-04-27] MEDS: Glucerna Shake 120 ML LIQUID PO ×2 (09:26→12:59)
--- NOTE | 2025-04-27 09:39 | PCM.PN.HOSP ---
Reason for Visit Reason for Visit: Diagnoses Acute pancreatitis without necrosis or infection, unspecified (04/26/25) Subjective Subjective Patient is a 50-year-old lady with history of alcohol dependence, prior episodes of pancreatitis who presented with abdominal pain. Patient was found to have elevated lipase levels. Objective Data Objective Data Vital Signs: Vital Signs Temp Pulse Resp BP Pulse Ox O2 Del Method 97.0 F L 100 17 156/80 H 92 Room Air 04/27/25 07:37 04/27/25 09:16 04/27/25 07:37 04/27/25 07:37 04/27/25 07:37 04/27/25 07:49 Oxygen Delivery Method Room Air Weight: 59.5 kg Body Mass Index (BMI) 22.5 Intake & Output: Intake and Output for Last 24 Hours 04/25/25 04/26/25 04/27/25 23:59 23:59 23:59 Intake Total 1743.33 / 1743.33 677.5 / 677.5 Balance 1743.33 / 1743.33 677.5 / 677.5 Lab / Micro Data 04/27/25 01:39 04/27/25 01:39 Labs: Laboratory Results - last 24 hr 04/26/25 14:22: WBC 10.4, RBC 4.09 L, Hgb 14.8, Hct 42.8, MCV 104.6 H, MCH 36.2 H, MCHC 34.6, RDW Std Deviation 49.4 H, RDW Coeff of Braxton 12.8, Plt Count 175, MPV 10.0, Immature Gran % (Auto) 0.700, Neut % (Auto) 84.6 H, Lymph % (Auto) 7.3 L, [place] % (Auto) 7.0, Eos % (Auto) 0.0, Baso % (Auto) 0.4, Absolute Neuts (auto) 8.8 H, Absolute Lymphs (auto) 0.76 L, Nucleated RBC % 0.2, Sodium 139, Potassium 2.8 L, Chloride 87 L, Carbon Dioxide 16.4 L, Anion Gap 36 H, BUN 8, Creatinine 0.70, Estim Creat Clear Calc 84.87, Est GFR (MDRD) Non-Af 107, BUN/Creatinine Ratio 11.2, Glucose 156 H, Calcium 8.9, Total Bilirubin 1.42 H, AST 127 H, ALT 62 H, Alkaline Phosphatase 122 H, Total Protein 7.7, Albumin 4.5, Globulin 3.2, Albumin/Globulin Ratio 1.4, Lipase 1045 H 04/26/25 16:05: Ethyl Alcohol < 10.1 04/26/25 16:12: Urine Color Yellow, Urine Clarity Clear, Urine pH 6.0, Ur Specific [place] 1.010, Urine Protein 30 H, Urine Glucose (UA) 1000 H, Urine Ketones 150 A*, Urine Occult Blood 10 H, Urine Nitrite Negative, Urine Bilirubin Negative, Urine Urobilinogen 1 H, Ur Leukocyte Esterase Negative, Urine RBC 0-5 SEEN, Urine WBC 0 SEEN, Ur Squamous Epith Cells 0-5 SEEN, Urine Bacteria 0 SEEN, Urine Mucus 0 SEEN 04/26/25 21:25: PT 13.3, INR 1.0 04/27/25 01:39: WBC 11.4 H, RBC 3.69 L, Hgb 13.5, Hct 39.2, MCV 106.2 H, MCH 36.6 H, MCHC 34.4, RDW Std Deviation 49.7 H, RDW Coeff of Braxton 12.7, Plt Count 153, MPV 9.7, Immature Gran % (Auto) 0.400, Neut % (Auto) 84.0 H, Lymph % (Auto) 7.3 L, Becker % (Auto) 7.9, Eos % (Auto) 0.1, Baso % (Auto) 0.3, Absolute Neuts (auto) 9.6 H, Absolute Lymphs (auto) 0.83, Nucleated RBC % 0, PT 12.9, INR 1.0, Sodium 134, Potassium 3.8, Chloride 96 L, Carbon Dioxide 16.0 L, Anion Gap 22 H, BUN 6, Creatinine 0.69 L, Estim Creat Clear Calc 86.10, Est GFR (MDRD) Non-Af 107, BUN/Creatinine Ratio 9.1 L, Glucose 132 H, Calcium 8.0, Phosphorus 3.3, Magnesium 0.9 L*, Total Bilirubin 0.99, Direct Bilirubin 0.54 H, AST 96 H, ALT 46 H, Alkaline Phosphatase 98, Total Protein 6.6, Albumin 3.9, Globulin 2.7, Albumin/Globulin Ratio 1.4, TSH 4.010 04/27/25 06:22: POC Glucose 107 H Radiography Diagnostic Testing: Radiology Impression Abdomen/Pelvis CT 04/26/25 14:17 IMPRESSION: Findings in keeping with acute pancreatitis superimposed on chronic pancreatitis. Diffuse fatty infiltration of the liver. Reading Location: [facility] Physical Exam Narrative GENERAL: cooperative HEENT: Atraumatic; normocephalic EYES; Anicteric, Normal Conjunctiva NECK; supple, normal thyroid, RESPIRATORY: Diminished to auscultation CARDIOVASCULAR: Regular S1 S2, GI: soft, normoactive bowel sounds, : No Renal angle tenderness; EXTREMITIES: No edema, no clubbing, MUSCULOSKELETAL: no muscle wasting NEURO: Awake; no lateralizing signs. SKIN: No Rash PSYCH; Flat affect Assessment & Plan Assessment/Plan (1) Pancreatitis: PLAN: Plan Patient is a 50-year-old lady with history of alcohol dependence, prior episodes of pancreatitis who presented with abdominal pain. Patient was found to have elevated lipase levels. 1. Acute on chronic pancreatitis ? Patient has been admitted to a monitored bed for symptom management including IV fluids, pain meds as well as antinausea medication. Plan is for patient to follow-up with GI following discharge 2. Hypokalemia - Secondary to GI losses. Corrected per protocol repeat labs ordered in a.m. for follow-up 3. Elevated transaminases ? Patient pattern consistent with alcohol use we will monitor 4. Dyslipidemia ?Patient is on statin therapy, continued at home dose 5. COPD ? Currently not in exacerbation aerosol treatments as needed 6. Hypertension ? Blood pressure controlled, home medications continued with dose adjustment as needed 7. Diabetes mellitus type 2 ? Held patient oral antihypertensive agent placed on Accu-Cheks AC and at bedtime with sliding scale coverage 8. GERD ? Patient was placed on PPI 9. Tobacco dependence ? Counseled on cessation, offered nicotine patch for tobacco cravings 10. Depression with anxiety ? Patient is on citalopram bupropion as well as buspirone did continue 11. Macrocytosis ? Secondary to chronic alcohol use repeat CBC with differential ordered in a.m. 12. Mild hyponatremia ? Secondary to hypovolemic hyponatremia started on IV fluid with BMP ordered for a.m. 13. Chronic alcohol dependence ? Counseled on cessation 14. DVT prophylaxis ? On enoxaparin 15. DVT prophylaxis ? On enoxaparin Time spent in the patient's overall evaluation,decision-making process, review of diagnostic data, adjustment of management, discussion with other providers, nursing nursing and ancillary staff involved in patient's care documentation, 50 Minutes Charges/Coding Visit Charges Inpatient E&M: 41520 Subs Hosp L3
[2025-04-27] MEDS: 0.9% Normal Saline (1000mL) 1,000 ML 100 ML IV ×2 (10:13→20:57)
[2025-04-27] MEDS: hydrOXYzine 10 MG Tablet PO ×2 (10:28→17:56)
--- NOTE | 2025-04-27 10:30 | CASEMGMT ---
RN CM Face to Face with patient for initial transition planning/care coordination assessment. RN CM introduced self and role at [facility]. Patient lying in bed, alert and oriented. Patient willing to participate in assessment and is able to answer all questions appropriately. Care providers, pharmacy, and demographics verified. Strata: 3 PCP: Sudha Specialists: ERLIN, cardiology Preferred Pharmacy: [facility] Insurance: Self pay Prescription Benefit: none Living Will/HPOA: none LNOK: , 2 adult children Living Arrangements: Patient lives with and adult children in a 2 story home. Patient is independent and able to ambulate stairs. Transportation: self, family DME/HHC: Patient has shower chair, raised toilet, grab bars, cpap at home. No previous HHC or SNF. Patient wishes to discharge home, denies need for home health at this time. Patient states she has no further needs or concerns at this time. CM to follow for discharge planning needs that may arise. Disposition Plan: Patient to discharge home with family support and follow-up plans in place. Ariadna LAU, RN, CM
[2025-04-27 11:44] LABS: Bedside Glucose 194 mg/dL (74-106)
--- NOTE | 2025-04-27 11:53 | CM.UR ---
Social Work SW met w/pt in room as pt is listed as self pay. SW gave pt resources including [employer] People, [employer], Greta Reveles, [facility] Card and number, prescription assistance programs, [facility] assist, and a list of [facility] Resources. SW inquired if she is interested in applying for Medicaid. Pt spoke w/Ritu already, she does not think she will qualify. Pt also asked about completing LW/POA. SW brought in the documents to complete w/pt. Pt states she would just like the blank documents to complete at a later time. SW reviewed to documents with her, and provided to her a blank set along w/the number to the SW dept, should she want to return to complete them at a later time. No further needs anticipated at this time. ZANA Walker
[2025-04-27 11:55] LABS: Hemoglobin A1c 5.6 % (<=5.6)
[2025-04-27] MEDS: Insulin Lispro 100 UNIT/ML INSULN.PEN SC (12:59)
[2025-04-27] MEDS: Ondansetron 4 MG/2 ML Vial IV ×2 (13:46→23:37)
[2025-04-27 17:22] LABS: Bedside Glucose 149 mg/dL (74-106)
[2025-04-27 22:37] LABS: Bedside Glucose 153 mg/dL (74-106)
[2025-04-27] MEDS: Acetaminophen 325 MG Tablet 650 MG PO (23:35)
[2025-04-28] VITALS (12 sets, daily range): BP systolic 116–156; BP diastolic 71–84; PULSE 80–109; RESP 12–20; TEMP 36.5–37; O2SAT 92–96
[2025-04-28] MEDS: HYDROmorphone 1 MG/ML Syringe IV ×3 (01:17→16:39)
[2025-04-28] MEDS: 0.9% Saline Lock 10 ML Syringe IV ×2 (01:17→06:14)
[2025-04-28 06:04] LABS: Absolute Lymphocyte Count 0.95 X10^3/uL (0.83-4.51); Absolute Neutrophil Count 5.9 X10^3/uL (2.0-7.7); Basophil# 0.02 X10^3/uL; Basophil% 0.3 % (0-1); Eosinophil# 0.06 X10^3/uL; Eosinophils% 0.8 % (0-5); Hematocrit 34.3 % (37-47); Hemoglobin 11.6 g/dL (12.0-15.0); Lymphocyte # 0.95 X10^3/ul (0.83-4.51); Lymphocyte % 12.5 % (19-41); Mean Corp Hgb Conc 33.8 g/dL (32-36); Mean Corpuscular Hgb 36.4 pg (27.0-32.0); Mean Corpuscular Volume 107.5 fL (81-99); Mean Platelet Vol. 10.3 fl (6.2-12.0); Monocyte# 0.61 X10^3/uL; NRBC Flagged by Analyzer 0 % (0-5); Neutrophil # 5.93 X10^3/uL (2.7-7.7); Platelet Count 119 K/mm3 (150-450); RBC Distribution Width CV 12.2 % (11.6-14.6); RBC Distribution Width SD 48.2 fl (35.1-43.9); Red Blood Count 3.19 M/mm3 (4.2-5.4); White Blood Count 7.6 K/mm3 (4.4-11.0)
[2025-04-28] MEDS: busPIRone 5 MG Tablet PO ×3 (06:14→22:20)
[2025-04-28 06:43] LABS: Bedside Glucose 104 mg/dL (74-106)
[2025-04-28] MEDS: 0.9% Normal Saline (1000mL) 1,000 ML 100 ML IV ×2 (06:56→14:37)
[2025-04-28] MEDS: Budesonide Respules 0.5 MG/2 ML AMPUL.NEB. INHALATION ×2 (07:20→20:35)
[2025-04-28] MEDS: Albuterol 2.5 MG/3 ML VIAL.NEB. INHALATION ×3 (07:20→20:35)
[2025-04-28 07:44] LABS: AST(SGOT) 265 U/L (<=31); Alanine Aminotransfer ALT/SGPT 72 U/L (<=34); Albumin, Serum 3.7 g/dL (3.5-5.0); Alkaline Phosphatase 158 U/L (35-104); Anion Gap 12 (5-15); BUN 3 mg/dL (4-19); BUN/Creat Ratio 6.9 RATIO (10-20); Bilirubin, Direct 0.79 mg/dL (0.00-0.30); Calcium,Total 8.3 mg/dL (7.6-11.0); Carbon Dioxide 24.9 mmol/L (21.0-32.0); Chloride 100 mmol/L (98-108); EST Glomerular Filtration Rate 115 (>60); Estimated Creatinine Clearance 118.82 ml/min (50-250); Globulin 2.6 g/dL (2.2-4.2); Glucose 103 mg/dL (70-99); Potassium 3.2 mmol/L (3.3-5.1); Protein, Total 6.3 g/dL (5.9-8.4); Sodium Level 137 mmol/L (133-145); Total Bilirubin 1.26 mg/dL (0.00-1.30)
[2025-04-28 07:57] LABS: Lipase 533 U/L (13-75); Magnesium 1.5 mg/dL (1.5-2.2)
[2025-04-28 08:04] LABS: Phosphorus 1.5 mg/dL (2.7-4.5)
[2025-04-28] MEDS: Glucerna Shake 120 ML LIQUID PO (08:55)
[2025-04-28] MEDS: Aspirin 81 MG TAB.CHEW PO (08:55)
[2025-04-28] MEDS: Atorvastatin Calcium 40 MG Tablet PO (08:56)
[2025-04-28] MEDS: Enoxaparin 40 MG/0.4 ML Syringe SC (08:56)
[2025-04-28] MEDS: Citalopram 40 MG TABLET PO (08:56)
[2025-04-28] MEDS: buPROPion (XL) 150 MG TABLET.XL PO (08:57)
[2025-04-28] MEDS: Pantoprazole Sodium 40 MG Tablet PO ×2 (08:57→22:20)
[2025-04-28] MEDS: Metoprolol(XL)Succ 25 MG Tablet PO (08:58)
[2025-04-28] MEDS: Lisinopril 40 MG Tablet PO (08:58)
[2025-04-28] MEDS: Montelukast 10 MG Tablet PO (08:58)
--- NOTE | 2025-04-28 09:02 | CASEMGMT ---
Social Work SW checked in w/pt regarding how she is feeling today. Pt informed SW that she was hallucinating overnight, states she saw a cat in the room, thought at one point she was at one of the doctor's or nurse's home, then thought she was in the bathroom and there was a TV on the floor. She states she then woke up and was in the bed. Even at this moment she states that the room looks like it is filled with smoke. She states she knows they are hallucinations, SW encouraged her to let the doctor know. SW inquired if she has hallucinated before. Initially pt said no, but then said she tried to take Chantix once to quit smoking and she had hallucinations of her father--so she stopped taking the medication. Pt denies any suicidality or homicidality, and is aware the hallucinations are not real. SW spoke w/pt about counseling, pt is open to resources. Pt has been under stress recently as her has been in and out of the [facility] and long-term facility the last couple of months. Pt also would like smoking cessation resources. SW offered support to pt, provided the requested resources to her. SW let pt's RN and physician know that pt is reporting hallucinations, is aware that they are hallucinations, and is not suicidal or homocidal. SW remains available for any additional support and resources. ZANA Walker
--- NOTE | 2025-04-28 09:42 | PCM.PN.HOSP ---
Reason for Visit Reason for Visit: Diagnoses Acute pancreatitis without necrosis or infection, unspecified (04/26/25) Subjective Subjective Patient seen reports having hallucinations during early hours of the morning. Patient transaminases trending down lipase however down. Objective Data Objective Data Vital Signs: Vital Signs Temp Pulse Resp BP Pulse Ox O2 Del Method 98.2 F 80 20 H 116/76 92 Room Air 04/28/25 03:52 04/28/25 08:58 04/28/25 07:20 04/28/25 03:52 04/28/25 03:52 04/28/25 03:52 Oxygen Delivery Method Room Air Weight: 59.5 kg Body Mass Index (BMI) 22.5 Intake & Output: Intake and Output for Last 24 Hours 04/26/25 04/27/25 04/28/25 23:59 23:59 23:59 Intake Total 1743.33 / 1743.33 3277.5 / 3277.5 998.33 / 998.33 Balance 1743.33 / 1743.33 3277.5 / 3277.5 998.33 / 998.33 Medical Nutrition Assessment Dietitian: Malnutrition Criteria Met Start: 04/27/25 14:17 Freq: Status: Active Protocol: Document 04/27/25 14:17 SB (Rec: 04/27/25 14:17 SB [id number]) Nutrition Malnutrition Evidence of Yes Malnutrition Exists Malnutrition (severe Acute Illness/Injury ): Evidenced By Suboptimal Energy Intake (Severe),Weight Loss (Severe) Clinical Problem Acute Disease or Injury Related Malnutrition Etiology severe related to inadequate oral intake Signs/Symptoms as evidenced by 10% unintentional weight loss x <1 month and PO meeting <50% of estimated nutrition needs x 1 month. Status Active Problem Recommendation Dietitian Adjust to regular, fat restriction diet. Recommendations/ Continue 120ml glucerna TID with medpass. Changes Will monitor weight trends. Lab / Micro Data 04/28/25 05:34 04/28/25 05:34 Labs: Laboratory Results - last 24 hr 04/27/25 01:39: Hemoglobin A1c 5.6 04/27/25 11:26: POC Glucose 194 H 04/27/25 17:00: POC Glucose 149 H 04/27/25 22:12: POC Glucose 153 H 04/28/25 05:34: WBC 7.6, RBC 3.19 L, Hgb 11.6 L, Hct 34.3 L, MCV 107.5 H, MCH 36.4 H, MCHC 33.8, RDW Std Deviation 48.2 H, RDW Coeff of Braxton 12.2, Plt Count 119 L, MPV 10.3, Immature Gran % (Auto) 0.400, Neut % (Auto) 78.0 H, Lymph % (Auto) 12.5 L, [place] % (Auto) 8.0, Eos % (Auto) 0.8, Baso % (Auto) 0.3, Absolute Neuts (auto) 5.9, Absolute Lymphs (auto) 0.95, Nucleated RBC % 0, Sodium 137, Potassium 3.2 L, Chloride 100, Carbon Dioxide 24.9, Anion Gap 12, BUN 3 L, Creatinine 0.50 L, Estim Creat Clear Calc 118.82, Est GFR (MDRD) Non-Af 115, BUN/Creatinine Ratio 6.9 L, Glucose 103 H, Calcium 8.3, Phosphorus 1.5 L, Magnesium 1.5, Total Bilirubin 1.26, Direct Bilirubin 0.79 H, AST 265 H, ALT 72 H, Alkaline Phosphatase 158 H, Total Protein 6.3, Albumin 3.7, Globulin 2.6, Lipase 533 H 04/28/25 06:12: POC Glucose 104 Physical Exam Narrative GENERAL: cooperative but appears anxious HEENT: Atraumatic; normocephalic EYES; Anicteric, Normal Conjunctiva NECK; supple, normal thyroid, RESPIRATORY: Diminished to auscultation CARDIOVASCULAR: Regular S1 S2, GI: soft, normoactive bowel sounds, : No Renal angle tenderness; EXTREMITIES: No edema, no clubbing, MUSCULOSKELETAL: no muscle wasting NEURO: Awake; no lateralizing signs. SKIN: No Rash PSYCH; Flat affect Assessment & Plan Assessment/Plan (1) Pancreatitis: PLAN: Plan Patient is a 50-year-old lady with history of alcohol dependence, prior episodes of pancreatitis who presented with abdominal pain. Patient was found to have elevated lipase levels. 1. Acute on chronic pancreatitis ? Patient has been admitted to a monitored bed for symptom management including IV fluids, pain meds as well as antinausea medication. Plan is for patient to follow-up with GI following discharge ? 04/28/2025 patient lipase levels down and symptoms improving 2. Hypokalemia - Secondary to GI losses. Corrected per protocol repeat labs ordered in a.m. for follow-up 3. Elevated transaminases ? Patient pattern consistent with alcohol use we will monitor ? 04/28/2025 patient transaminases continue to rise repeat labs ordered in the 4. Dyslipidemia ?Patient is on statin therapy, continued at home dose 5. COPD ? Currently not in exacerbation aerosol treatments as needed 6. Hypertension ? Blood pressure controlled, home medications continued with dose adjustment as needed 7. Diabetes mellitus type 2 ? Held patient oral antihypertensive agent placed on Accu-Cheks AC and at bedtime with sliding scale coverage 8. GERD ? Patient was placed on PPI 9. Tobacco dependence ? Counseled on cessation, offered nicotine patch for tobacco cravings 10. Depression with anxiety ? Patient is on citalopram bupropion as well as buspirone did continue 11. Macrocytosis ? Secondary to chronic alcohol use repeat CBC with differential ordered in a.m. 12. Mild hyponatremia ? Secondary to hypovolemic hyponatremia started on IV fluid with BMP ordered for a.m. 13. Chronic alcohol dependence ? Counseled on cessation 14. DVT prophylaxis ? On enoxaparin 15. DVT prophylaxis ? On enoxaparin 16. Hallucinations ?? Alcohol withdrawal patient denies being jittery. Will continue with monitoring and start patient on phenobarb. Initiated CIWA protocol Time spent in the patient's overall evaluation,decision-making process, review of diagnostic data, adjustment of management, discussion with other providers, nursing nursing and ancillary staff involved in patient's care documentation, 52 Minutes Charges/Coding Visit Charges Inpatient E&M: 76708 Subs Hosp L3
[2025-04-28] MEDS: Magnesium Sulfate 2 GM in Dextrose 5%-Water (100mL Bag) 100 ML IV (10:09)
[2025-04-28] MEDS: Folic Acid 1 MG Tablet PO (10:10)
[2025-04-28] MEDS: Na Biphos/Potassium Phosphate PACKET 1 PACKET PO ×2 (10:10→22:20)
[2025-04-28] MEDS: Thiamine Hydrochloride 100 MG Tablet PO (10:10)
[2025-04-28] MEDS: Phenobarbital 32.4 MG Tablet PO ×4 (10:10→22:20)
[2025-04-28] MEDS: Magnesium Chloride 64 MG Delay Rel.Tablet PO (10:11)
[2025-04-28] MEDS: amLODIPine 5 MG Tablet PO (10:12)
[2025-04-28 11:43] LABS: Bedside Glucose 181 mg/dL (74-106)
[2025-04-28] MEDS: Dicyclomine 10 MG Capsule 20 MG PO (14:33)
[2025-04-28] MEDS: Gabapentin 300 MG Capsule PO (14:34)
[2025-04-28] MEDS: hydrOXYzine 10 MG Tablet PO (14:34)
[2025-04-28] MEDS: Lactated Ringers 1,000 ML 150 ML IV (18:14)
--- NOTE | 2025-04-28 22:00 | NURSING ---
Pt reportedly continues to hallucinate. Pt setting off bed alarm frequently. Sitter placed in pt room at this time for safety. cryptologic supervisor updated.
[2025-04-28] MEDS: traZODone 100 MG Tablet PO (22:20)
[2025-04-28] MEDS: chlordiazePOXIDE 25 MG Capsule PO (22:38)
[2025-04-28 22:43] LABS: Bedside Glucose 140 mg/dL (74-106)
[2025-04-29] VITALS (14 sets, daily range): BP systolic 150–181; BP diastolic 68–88; PULSE 79–102; RESP 17–24; TEMP 36.1–36.9; O2SAT 88–100
[2025-04-29] MEDS: Lactated Ringers 1,000 ML 150 ML IV ×3 (00:34→18:12)
[2025-04-29] MEDS: Dicyclomine 10 MG Capsule 20 MG PO ×2 (02:25→22:05)
[2025-04-29] MEDS: Phenobarbital 32.4 MG Tablet PO ×6 (02:25→22:05)
[2025-04-29 05:23] LABS: Absolute Lymphocyte Count 1.02 X10^3/uL (0.83-4.51); Absolute Neutrophil Count 5.3 X10^3/uL (2.0-7.7); Basophil# 0.03 X10^3/uL; Basophil% 0.4 % (0-1); Eosinophil# 0.08 X10^3/uL; Eosinophils% 1.1 % (0-5); Hematocrit 28.7 % (37-47); Hemoglobin 9.9 g/dL (12.0-15.0); Lymphocyte # 1.02 X10^3/ul (0.83-4.51); Lymphocyte % 14.1 % (19-41); Mean Corp Hgb Conc 34.5 g/dL (32-36); Mean Corpuscular Hgb 36.5 pg (27.0-32.0); Mean Corpuscular Volume 105.9 fL (81-99); Mean Platelet Vol. 10.5 fl (6.2-12.0); Monocyte# 0.79 X10^3/uL; Monocyte% 10.9 % (0-10); NRBC Flagged by Analyzer 0 % (0-5); Neutrophil # 5.28 X10^3/uL (2.7-7.7); Neutrophil % 72.9 % (47-70); Platelet Count 110 K/mm3 (150-450); RBC Distribution Width CV 12.2 % (11.6-14.6); RBC Distribution Width SD 47.6 fl (35.1-43.9); Red Blood Count 2.71 M/mm3 (4.2-5.4); White Blood Count 7.2 K/mm3 (4.4-11.0)
[2025-04-29 05:53] LABS: AST(SGOT) 56 U/L (<=31); Alanine Aminotransfer ALT/SGPT 37 U/L (<=34); Albumin, Serum 3.2 g/dL (3.5-5.0); Alkaline Phosphatase 108 U/L (35-104); Anion Gap 11 (5-15); BUN < 2 mg/dL (4-19); BUN/Creat Ratio UNABLE TO CALCULATE RATIO (10-20); Bilirubin, Direct 0.43 mg/dL (0.00-0.30); Calcium,Total 8.2 mg/dL (7.6-11.0); Chloride 103 mmol/L (98-108); EST Glomerular Filtration Rate 122 (>60); Estimated Creatinine Clearance 148.53 ml/min (50-250); Globulin 2.4 g/dL (2.2-4.2); Glucose 126 mg/dL (70-99); Magnesium 1.5 mg/dL (1.5-2.2); Potassium 2.8 mmol/L (3.3-5.1); Protein, Total 5.6 g/dL (5.9-8.4); Sodium Level 140 mmol/L (133-145); Total Bilirubin 0.71 mg/dL (0.00-1.30)
[2025-04-29] MEDS: busPIRone 5 MG Tablet PO ×3 (06:21→22:06)
[2025-04-29] MEDS: chlordiazePOXIDE 25 MG Capsule PO ×3 (06:21→22:06)
[2025-04-29] MEDS: Budesonide Respules 0.5 MG/2 ML AMPUL.NEB. INHALATION ×2 (06:53→19:21)
[2025-04-29] MEDS: Albuterol 2.5 MG/3 ML VIAL.NEB. INHALATION ×3 (06:54→19:21)
[2025-04-29 07:09] LABS: Bedside Glucose 132 mg/dL (74-106)
--- NOTE | 2025-04-29 07:33 | PN.HOSP_ITS ---
Reason for Visit Reason for Visit: Diagnoses Acute pancreatitis without necrosis or infection, unspecified (04/26/25) Subjective Subjective Patient went into full-blown delirium tremens the day prior. Had to be started on the CIWA protocol with Ativan taper. Seen this a.m. patient remains tremulous. Has significant electrolyte abnormalities including hypokalemia hypomagnesemia and hypophosphatemia. Hemoglobin is down to 9.9 Objective Data Objective Data Vital Signs: Vital Signs Temp Pulse Resp BP Pulse Ox O2 Del Method O2 Flow Rate 97.3 F L 82 20 H 169/87 H 88 Room Air 2 04/29/25 06:09 04/29/25 06:53 04/29/25 06:53 04/29/25 06:09 04/29/25 06:53 04/29/25 06:53 04/28/25 23:05 Oxygen Flow Rate (L/min) 2 Oxygen Delivery Method Room Air Weight: 59.5 kg Body Mass Index (BMI) 22.5 Intake & Output: Intake and Output for Last 24 Hours 04/27/25 04/28/25 04/29/25 23:59 23:59 23:59 Intake Total 3277.5 / 3277.5 3859.33 / 4219.33 1430 / 1430 Balance 3277.5 / 3277.5 3859.33 / 4219.33 1430 / 1430 Medical Nutrition Assessment Dietitian: Malnutrition Criteria Met Start: 04/27/25 14:17 Freq: Status: Active Protocol: Document 04/27/25 14:17 SB (Rec: 04/27/25 14:17 SB [id number]) Nutrition Malnutrition Evidence of Yes Malnutrition Exists Malnutrition (severe Acute Illness/Injury ): Evidenced By Suboptimal Energy Intake (Severe),Weight Loss (Severe) Clinical Problem Acute Disease or Injury Related Malnutrition Etiology severe related to inadequate oral intake Signs/Symptoms as evidenced by 10% unintentional weight loss x <1 month and PO meeting <50% of estimated nutrition needs x 1 month. Status Active Problem Recommendation Dietitian Adjust to regular, fat restriction diet. Recommendations/ Continue 120ml glucerna TID with medpass. Changes Will monitor weight trends. Lab / Micro Data 04/29/25 04:38 04/29/25 04:38 Labs: Laboratory Results - last 24 hr 04/28/25 05:34: Sodium 137, Potassium 3.2 L, Chloride 100, Carbon Dioxide 24.9, Anion Gap 12, BUN 3 L, Creatinine 0.50 L, Estim Creat Clear Calc 118.82, Est GFR (MDRD) Non-Af 115, BUN/Creatinine Ratio 6.9 L, Glucose 103 H, Calcium 8.3, P hosphorus 1.5 L, Magnesium 1.5, Total Bilirubin 1.26, Direct Bilirubin 0.79 H, A ST 265 H, ALT 72 H, Alkaline Phosphatase 158 H, Total Protein 6.3, Albumin 3.7, Globulin 2.6, Lipase 533 H 04/28/25 11:26: POC Glucose 181 H 04/28/25 22:19: POC Glucose 140 H 04/29/25 04:38: WBC 7.2, RBC 2.71 L, Hgb 9.9 L, Hct 28.7 L, MCV 105.9 H, MCH 36.5 H, MCHC 34.5, RDW Std Deviation 47.6 H, RDW Coeff of Braxton 12.2, Plt Count 110 L, MPV 10.5, Immature Gran % (Auto) 0.600, Neut % (Auto) 72.9 H, Lymph % (Auto) 14.1 L, [place] % (Auto) 10.9 H, Eos % (Auto) 1.1, Baso % (Auto) 0.4, Absolute Neuts (auto) 5.3, Absolute Lymphs (auto) 1.02, Nucleated RBC % 0, Sodium 140, Potassium 2.8 L, Chloride 103, Carbon Dioxide 26.0, Anion Gap 11, B UN < 2 L, Creatinine 0.40 L, Estim Creat Clear Calc 148.53, Est GFR (MDRD) Non- Af 122, BUN/Creatinine Ratio UNABLE TO CALCULATE L, Glucose 126 H, Calcium 8.2, Phosphorus 2.0 L, Magnesium 1.5, Total Bilirubin 0.71, Direct Bilirubin 0.43 H, AST 56 H, ALT 37 H, Alkaline Phosphatase 108 H, Total Protein 5.6 L, Albumin 3.2 L, Globulin 2.4 04/29/25 06:24: POC Glucose 132 H Physical Exam Narrative GENERAL: cooperative but appears anxious HEENT: Atraumatic; normocephalic EYES; Anicteric, Normal Conjunctiva NECK; supple, normal thyroid, RESPIRATORY: Diminished to auscultation CARDIOVASCULAR: Regular S1 S2, GI: soft, normoactive bowel sounds, : No Renal angle tenderness; EXTREMITIES: No edema, no clubbing, MUSCULOSKELETAL: no muscle wasting NEURO: Awake; no lateralizing signs. SKIN: No Rash PSYCH; Flat affect Assessment & Plan Assessment/Plan (1) Pancreatitis: PLAN: Plan Patient is a 50-year-old lady with history of alcohol dependence, prior episodes of pancreatitis who presented with abdominal pain. Patient was found to have elevated lipase levels. 1. Acute on chronic pancreatitis ? Patient has been admitted to a monitored bed for symptom management including IV fluids, pain meds as well as antinausea medication. Plan is for patient to follow-up with GI following discharge ? 04/28/2025 patient lipase levels down and symptoms improving 2. Alcohol withdrawal with delirium tremens ? Patient was started on CIWA protocol placed on phenobarb taper. 3. Elevated transaminases ? Patient pattern consistent with alcohol use we will monitor ? 04/28/2025 patient transaminases continue to rise repeat labs ordered in the 4. Dyslipidemia ?Patient is on statin therapy, continued at home dose 5. COPD ? Currently not in exacerbation aerosol treatments as needed 6. Hypertension ? Blood pressure controlled, home medications continued with dose adjustment as needed 7. Diabetes mellitus type 2 ? Held patient oral antihypertensive agent placed on Accu-Cheks AC and at bedtime with sliding scale coverage 8. GERD ? Patient was placed on PPI 9. Tobacco dependence ? Counseled on cessation, offered nicotine patch for tobacco cravings 10. Depression with anxiety ? Patient is on citalopram bupropion as well as buspirone did continue 11. Macrocytosis ? Secondary to chronic alcohol use repeat CBC with differential ordered in a.m. 12. Mild hyponatremia ? Secondary to hypovolemic hyponatremia started on IV fluid with BMP ordered for a.m. 13. Chronic alcohol dependence ? Counseled on cessation 14. Hallucinations ?? Alcohol withdrawal patient denies being jittery. Will continue with monitoring and start patient on phenobarb. Initiated CIWA protocol ? Secondary to alcohol withdrawal management as discussed above 15. Hypophosphatemia -Corrected per protocol, repeat phosphate ordered for 16 Hypomagnesemia -Corrected for protocol, repeat magnesium ordered for a.m. 17. Hypokalemia - Secondary to GI losses. Corrected per protocol repeat labs ordered in a.m. for follow-up ? 04/29/2025; further drop in patient potassium level and order was given for parenteral potassium 18. Thrombocytopenia ? Secondary to chronic alcohol use monitoring with CBC with differential 19. Anemia ? Secondary to chronic disorder monitoring H&H and transfuse if patient becomes symptomatic or hemoglobin falls below 7 20. DVT prophylaxis ? Patient had been started on enoxaparin given the significant drop in platelet count enoxaparin Time spent in the patient's overall evaluation,decision-making process, review of diagnostic data, adjustment of management, discussion with other providers, nursing nursing and ancillary staff involved in patient's care documentation, 50 Minutes Charges/Coding Visit Charges Inpatient E&M: 82239 Subs Hosp L3
[2025-04-29] MEDS: Potassium Chloride 10mEq/100mL 10 MEQ/100 ML IV.SOLN. 100 MEQ IV BOLUS ×4 (08:44→12:52)
[2025-04-29] MEDS: Potassium Phosphate 40 MM in 0.9% Normal Saline (500mL Bag) 500 ML 62.5 MM IV (08:49)
[2025-04-29] MEDS: Pantoprazole Sodium 40 MG Tablet PO ×2 (08:59→22:06)
[2025-04-29] MEDS: Aspirin 81 MG TAB.CHEW PO (09:00)
[2025-04-29] MEDS: Citalopram 40 MG TABLET PO (09:01)
[2025-04-29] MEDS: Magnesium Chloride 64 MG Delay Rel.Tablet PO (09:02)
[2025-04-29] MEDS: amLODIPine 5 MG Tablet PO (09:02)
[2025-04-29] MEDS: Na Biphos/Potassium Phosphate PACKET 1 PACKET PO ×2 (09:02→22:06)
[2025-04-29] MEDS: Atorvastatin Calcium 40 MG Tablet PO (09:02)
[2025-04-29] MEDS: buPROPion (XL) 150 MG TABLET.XL PO (09:03)
[2025-04-29] MEDS: Montelukast 10 MG Tablet PO (09:03)
[2025-04-29] MEDS: Lisinopril 40 MG Tablet PO (09:03)
[2025-04-29] MEDS: Metoprolol(XL)Succ 25 MG Tablet PO (09:03)
[2025-04-29] MEDS: Folic Acid 1 MG Tablet PO (09:06)
[2025-04-29] MEDS: Acetaminophen 325 MG Tablet 650 MG PO ×2 (09:06→22:05)
[2025-04-29] MEDS: Glucerna Shake 120 ML LIQUID PO (09:17)
[2025-04-29] MEDS: Magnesium Sulfate 2 GM in Dextrose 5%-Water (100mL Bag) 100 ML IV (10:01)
[2025-04-29] MEDS: Insulin Lispro 100 UNIT/ML INSULN.PEN SC (11:24)
[2025-04-29 11:44] LABS: Bedside Glucose 218 mg/dL (74-106)
[2025-04-29 17:14] LABS: Bedside Glucose 121 mg/dL (74-106)
[2025-04-29] MEDS: traZODone 100 MG Tablet PO (22:06)
[2025-04-29 23:13] LABS: Bedside Glucose 187 mg/dL (74-106)
[2025-04-30] VITALS (14 sets, daily range): BP systolic 146–176; BP diastolic 68–86; PULSE 77–95; RESP 16–24; TEMP 36.3–37.1; O2SAT 94–100
[2025-04-30] MEDS: Lactated Ringers 1,000 ML 150 ML IV ×4 (01:09→21:01)
[2025-04-30] MEDS: Phenobarbital 32.4 MG Tablet PO ×5 (02:22→18:11)
[2025-04-30] MEDS: Dicyclomine 10 MG Capsule 20 MG PO (05:12)
[2025-04-30 05:41] LABS: Absolute Lymphocyte Count 1.39 X10^3/uL (0.83-4.51); Absolute Neutrophil Count 3.6 X10^3/uL (2.0-7.7); Basophil# 0.03 X10^3/uL; Basophil% 0.5 % (0-1); Eosinophil# 0.12 X10^3/uL; Hematocrit 29.7 % (37-47); Hemoglobin 10.3 g/dL (12.0-15.0); Lymphocyte # 1.39 X10^3/ul (0.83-4.51); Lymphocyte % 23.4 % (19-41); Mean Corp Hgb Conc 34.7 g/dL (32-36); Mean Corpuscular Hgb 36.7 pg (27.0-32.0); Mean Corpuscular Volume 105.7 fL (81-99); Mean Platelet Vol. 10.4 fl (6.2-12.0); Monocyte# 0.82 X10^3/uL; Monocyte% 13.8 % (0-10); NRBC Flagged by Analyzer 0 % (0-5); Neutrophil # 3.56 X10^3/uL (2.7-7.7); Neutrophil % 59.8 % (47-70); Platelet Count 145 K/mm3 (150-450); RBC Distribution Width CV 12.6 % (11.6-14.6); RBC Distribution Width SD 49.7 fl (35.1-43.9); Red Blood Count 2.81 M/mm3 (4.2-5.4)
[2025-04-30 06:21] LABS: AST(SGOT) 39 U/L (<=31); Alanine Aminotransfer ALT/SGPT 32 U/L (<=34); Albumin, Serum 3.2 g/dL (3.5-5.0); Alkaline Phosphatase 98 U/L (35-104); Anion Gap 13 (5-15); BUN < 2 mg/dL (4-19); BUN/Creat Ratio UNABLE TO CALCULATE RATIO (10-20); Bilirubin, Direct 0.41 mg/dL (0.00-0.30); Calcium,Total 8.5 mg/dL (7.6-11.0); Carbon Dioxide 28.1 mmol/L (21.0-32.0); Chloride 98 mmol/L (98-108); Creatinine, Serum 0.41 mg/dL (0.70-1.20); EST Glomerular Filtration Rate 121 (>60); Globulin 2.6 g/dL (2.2-4.2); Glucose 124 mg/dL (70-99); Potassium 2.7 mmol/L (3.3-5.1); Protein, Total 5.9 g/dL (5.9-8.4); Sodium Level 139 mmol/L (133-145); Total Bilirubin 0.67 mg/dL (0.00-1.30)
[2025-04-30] MEDS: chlordiazePOXIDE 25 MG Capsule PO ×3 (06:36→21:26)
[2025-04-30] MEDS: busPIRone 5 MG Tablet PO ×3 (06:36→21:17)
[2025-04-30] MEDS: Albuterol 2.5 MG/3 ML VIAL.NEB. INHALATION ×2 (06:56→19:59)
[2025-04-30] MEDS: Budesonide Respules 0.5 MG/2 ML AMPUL.NEB. INHALATION ×2 (06:56→20:00)
[2025-04-30 07:07] LABS: Bedside Glucose 149 mg/dL (74-106)
--- NOTE | 2025-04-30 08:14 | PCM.PN.HOSP ---
Reason for Visit Reason for Visit: Diagnoses Acute pancreatitis without necrosis or infection, unspecified (04/26/25) Subjective Subjective Patient was started on phenobarb after she went into alcohol withdrawal. She continues to have significant electrolyte abnormalities including hypokalemia hypomagnesemia and hypophosphatemia. Aggressive correction initiated. Patient seen much more interactive compared to previous day. Plan is to advance patient's diet Objective Data Objective Data Vital Signs: Vital Signs Temp Pulse Resp BP Pulse Ox O2 Del Method O2 Flow Rate 98.7 F 88 16 176/79 H 97 Nasal Cannula 2 04/30/25 08:05 04/30/25 08:05 04/30/25 08:05 04/30/25 08:05 04/30/25 08:05 04/30/25 08:05 04/30/25 08:05 Oxygen Flow Rate (L/min) 2 Oxygen Delivery Method Nasal Cannula Weight: 59.5 kg Body Mass Index (BMI) 22.5 Intake & Output: Intake and Output for Last 24 Hours 04/28/25 04/29/25 04/30/25 23:59 23:59 23:59 Intake Total 3859.33 / 4219.33 7591.3333 / 8071.3333 2450 / 2450 Output Total 4 / 4 Balance 3859.33 / 4219.33 7591.3333 / 8067.3333 2446 / 2446 Medical Nutrition Assessment Dietitian: Malnutrition Criteria Met Start: 04/27/25 14:17 Freq: Status: Active Protocol: Document 04/27/25 14:17 SB (Rec: 04/27/25 14:17 SB [id number]) Nutrition Malnutrition Evidence of Yes Malnutrition Exists Malnutrition (severe Acute Illness/Injury ): Evidenced By Suboptimal Energy Intake (Severe),Weight Loss (Severe) Clinical Problem Acute Disease or Injury Related Malnutrition Etiology severe related to inadequate oral intake Signs/Symptoms as evidenced by 10% unintentional weight loss x <1 month and PO meeting <50% of estimated nutrition needs x 1 month. Status Active Problem Recommendation Dietitian Adjust to regular, fat restriction diet. Recommendations/ Continue 120ml glucerna TID with medpass. Changes Will monitor weight trends. Lab / Micro Data 04/30/25 04:51 04/30/25 04:51 Labs: Laboratory Results - last 24 hr 04/29/25 11:23: POC Glucose 218 H 04/29/25 16:46: POC Glucose 121 H 04/29/25 21:53: POC Glucose 187 H 04/30/25 04:51: WBC 6.0, RBC 2.81 L, Hgb 10.3 L, Hct 29.7 L, MCV 105.7 H, MCH 36.7 H, MCHC 34.7, RDW Std Deviation 49.7 H, RDW Coeff of Braxton 12.6, Plt Count 145 L, MPV 10.4, Immature Gran % (Auto) 0.500, Neut % (Auto) 59.8, Lymph % (Auto) 23.4, [place] % (Auto) 13.8 H, Eos % (Auto) 2.0, Baso % (Auto) 0.5, Absolute Neuts (auto) 3.6, Absolute Lymphs (auto) 1.39, Nucleated RBC % 0, Sodium 139, Potassium 2.7 L*, Chloride 98, Carbon Dioxide 28.1, Anion Gap 13, BUN < 2 L, Creatinine 0.41 L, Estim Creat Clear Calc 144.90, Est GFR (MDRD) Non-Af 121, BUN/Creatinine Ratio UNABLE TO CALCULATE L, Glucose 124 H, Calcium 8.5, Total Bilirubin 0.67, Direct Bilirubin 0.41 H, AST 39 H, ALT 32, Alkaline Phosphatase 98, Total Protein 5.9, Albumin 3.2 L, Globulin 2.6 04/30/25 06:35: POC Glucose 149 H Physical Exam Narrative GENERAL: cooperative but appears anxious HEENT: Atraumatic; normocephalic EYES; Anicteric, Normal Conjunctiva NECK; supple, normal thyroid, RESPIRATORY: Diminished to auscultation CARDIOVASCULAR: Regular S1 S2, GI: soft, normoactive bowel sounds, : No Renal angle tenderness; EXTREMITIES: No edema, no clubbing, MUSCULOSKELETAL: no muscle wasting NEURO: Awake; no lateralizing signs. SKIN: No Rash PSYCH; Flat affect Assessment & Plan Assessment/Plan (1) Pancreatitis: PLAN: Plan Patient is a 50-year-old lady with history of alcohol dependence, prior episodes of pancreatitis who presented with abdominal pain. Patient was found to have elevated lipase levels. 1. Acute on chronic pancreatitis ? Patient has been admitted to a monitored bed for symptom management including IV fluids, pain meds as well as antinausea medication. Plan is for patient to follow-up with GI following discharge ? 04/28/2025 patient lipase levels down and symptoms improving ? 04/30/2025; plan is to advance patient's diet 2. Alcohol withdrawal with delirium tremens ? Patient was started on CIWA protocol placed on phenobarb taper. ? 04/30/2025; patient has tolerated phenobarb taper well 3. Elevated transaminases ? Patient pattern consistent with alcohol use we will monitor ? 04/28/2025 patient transaminases continue to rise repeat labs ordered in the 4. Dyslipidemia ?Patient is on statin therapy, continued at home dose 5. COPD ? Currently not in exacerbation aerosol treatments as needed 6. Hypertension ? Blood pressure controlled, home medications continued with dose adjustment as needed 7. Diabetes mellitus type 2 ? Held patient oral antihypertensive agent placed on Accu-Cheks AC and at bedtime with sliding scale coverage 8. GERD ? Patient was placed on PPI 9. Tobacco dependence ? Counseled on cessation, offered nicotine patch for tobacco cravings 10. Depression with anxiety ? Patient is on citalopram bupropion as well as buspirone did continue 11. Macrocytosis ? Secondary to chronic alcohol use repeat CBC with differential ordered in a.m. 12. Mild hyponatremia ? Secondary to hypovolemic hyponatremia started on IV fluid with BMP ordered for a.m. 13. Chronic alcohol dependence ? Counseled on cessation 14. Hallucinations ?? Alcohol withdrawal patient denies being jittery. Will continue with monitoring and start patient on phenobarb. Initiated CIWA protocol ? Secondary to alcohol withdrawal management as discussed above 15. Hypophosphatemia -Corrected per protocol, repeat phosphate ordered for 16 Hypomagnesemia -Corrected for protocol, repeat magnesium ordered for a.m. 17. Hypokalemia - Secondary to GI losses. Corrected per protocol repeat labs ordered in a.m. for follow-up ? 04/29/2025; further drop in patient potassium level and order was given for parenteral potassium ? 04/30/2025; potassium down to 2.7. Additional replacement given via both parenteral and oral route 18. Thrombocytopenia ? Secondary to chronic alcohol use monitoring with CBC with differential 19. Anemia ? Secondary to chronic disorder monitoring H&H and transfuse if patient becomes symptomatic or hemoglobin falls below 7 20. DVT prophylaxis ? Patient had been started on enoxaparin given the significant drop in platelet count enoxaparin 21. Severe malnutrition. Related to: inadequate oral intake As evidenced by: 10% unintentional weight loss x <1 month and PO meeting <50% of estimated nutrition needs x 1 month. With treatment/resources used including: Adjust to regular, fat restriction diet. Continue 120ml glucerna TID with medpass. Will monitor weight trends. Charges/Coding Visit Charges Inpatient E&M: 53238 Subs Hosp L2
[2025-04-30] MEDS: Citalopram 40 MG TABLET PO (09:03)
[2025-04-30] MEDS: Atorvastatin Calcium 40 MG Tablet PO (09:03)
[2025-04-30] MEDS: Potassium Chloride Oral Tablet 20 MEQ 40 MEQ PO (09:03)
[2025-04-30] MEDS: Aspirin 81 MG TAB.CHEW PO (09:03)
[2025-04-30] MEDS: Folic Acid 1 MG Tablet PO (09:03)
[2025-04-30] MEDS: buPROPion (XL) 150 MG TABLET.XL PO (09:04)
[2025-04-30] MEDS: Magnesium Chloride 64 MG Delay Rel.Tablet PO (09:04)
[2025-04-30] MEDS: Montelukast 10 MG Tablet PO (09:04)
[2025-04-30] MEDS: Metoprolol(XL)Succ 25 MG Tablet PO (09:04)
[2025-04-30] MEDS: Pantoprazole Sodium 40 MG Tablet PO ×2 (09:04→21:17)
[2025-04-30] MEDS: Na Biphos/Potassium Phosphate PACKET 1 PACKET PO ×2 (09:04→21:17)
[2025-04-30] MEDS: amLODIPine 5 MG Tablet PO (09:04)
[2025-04-30] MEDS: Lisinopril 40 MG Tablet PO (09:04)
[2025-04-30] MEDS: Potassium Chloride 10mEq/100mL 10 MEQ/100 ML IV.SOLN. 100 MEQ IV BOLUS ×4 (10:00→13:17)
[2025-04-30] MEDS: Potassium Chloride Oral Tablet 20 MEQ PO ×2 (10:15→18:11)
[2025-04-30] MEDS: Insulin Lispro 100 UNIT/ML INSULN.PEN SC (11:27)
[2025-04-30 11:48] LABS: Bedside Glucose 230 mg/dL (74-106)
[2025-04-30 12:29] LABS: Magnesium 1.5 mg/dL (1.5-2.2)
[2025-04-30] MEDS: Thiamine Hydrochloride 100 MG Tablet PO (13:24)
[2025-04-30 16:56] LABS: Bedside Glucose 147 mg/dL (74-106)
[2025-04-30] MEDS: Loperamide 2 MG Capsule PO (21:26)
[2025-04-30] MEDS: traZODone 100 MG Tablet PO (21:26)
[2025-04-30] MEDS: HYDROmorphone 1 MG/ML Syringe IV (21:27)
[2025-04-30] MEDS: Acetaminophen 325 MG Tablet 650 MG PO (21:27)
[2025-05-01] VITALS (8 sets, daily range): BP systolic 153–167; BP diastolic 93–97; PULSE 86–105; RESP 16–20; TEMP 36.8–37.4; O2SAT 92–96
[2025-05-01] MEDS: Phenobarbital 32.4 MG Tablet PO ×4 (00:30→16:56)
--- NOTE | 2025-05-01 02:13 | CPS ---
pt is sleeping , will check when awake if she wants on her cpap
[2025-05-01] MEDS: Lactated Ringers 1,000 ML 150 ML IV ×3 (04:00→21:07)
[2025-05-01] MEDS: chlordiazePOXIDE 25 MG Capsule PO ×3 (05:54→21:13)
[2025-05-01] MEDS: busPIRone 5 MG Tablet PO ×3 (05:55→21:08)
[2025-05-01 06:27] LABS: AST(SGOT) 73 U/L (<=31); Alanine Aminotransfer ALT/SGPT 39 U/L (<=34); Alkaline Phosphatase 166 U/L (35-104); Bilirubin, Direct 0.32 mg/dL (0.00-0.30); Globulin 2.7 g/dL (2.2-4.2); Protein, Total 5.7 g/dL (5.9-8.4); Total Bilirubin 0.59 mg/dL (0.00-1.30)
[2025-05-01] MEDS: Insulin Lispro 100 UNIT/ML INSULN.PEN SC ×3 (06:42→16:58)
[2025-05-01 06:49] LABS: Phosphorus 5.1 mg/dL (2.7-4.5)
[2025-05-01 07:05] LABS: Bedside Glucose 168 mg/dL (74-106)
[2025-05-01] MEDS: Albuterol 2.5 MG/3 ML VIAL.NEB. INHALATION ×3 (07:34→21:26)
[2025-05-01] MEDS: Budesonide Respules 0.5 MG/2 ML AMPUL.NEB. INHALATION ×2 (07:34→21:26)
[2025-05-01] MEDS: Aspirin 81 MG TAB.CHEW PO (08:18)
[2025-05-01] MEDS: Thiamine Hydrochloride 100 MG Tablet PO (08:18)
[2025-05-01] MEDS: Potassium Chloride Oral Tablet 20 MEQ PO ×2 (08:19→17:02)
[2025-05-01] MEDS: Folic Acid 1 MG Tablet PO (08:19)
[2025-05-01] MEDS: Pantoprazole Sodium 40 MG Tablet PO ×2 (08:20→21:07)
[2025-05-01] MEDS: Citalopram 40 MG TABLET PO (08:20)
[2025-05-01] MEDS: Magnesium Chloride 64 MG Delay Rel.Tablet PO (08:20)
[2025-05-01] MEDS: amLODIPine 5 MG Tablet PO (08:20)
[2025-05-01] MEDS: Montelukast 10 MG Tablet PO (08:20)
[2025-05-01] MEDS: Na Biphos/Potassium Phosphate PACKET 1 PACKET PO (08:20)
[2025-05-01] MEDS: Atorvastatin Calcium 40 MG Tablet PO (08:20)
[2025-05-01] MEDS: buPROPion (XL) 150 MG TABLET.XL PO (08:21)
[2025-05-01] MEDS: Metoprolol(XL)Succ 25 MG Tablet PO (08:21)
[2025-05-01] MEDS: Lisinopril 40 MG Tablet PO (08:21)
--- NOTE | 2025-05-01 09:30 | PN.HOSP_ITS ---
Reason for Visit Reason for Visit: Diagnoses Acute pancreatitis without necrosis or infection, unspecified (04/26/25) Subjective Subjective Patient seen still remains tremulous at rest. Complains of feeling weak. Requested for PT OT eval Objective Data Objective Data Vital Signs: Vital Signs Temp Pulse Resp BP Pulse Ox O2 Del Method O2 Flow Rate 98.2 F 89 16 167/97 H 92 Nasal Cannula 2 05/01/25 08:25 05/01/25 08:25 05/01/25 08:25 05/01/25 08:25 05/01/25 08:25 05/01/25 08:25 05/01/25 08:25 Oxygen Flow Rate (L/min) 2 Oxygen Delivery Method Nasal Cannula Weight: 59.5 kg Body Mass Index (BMI) 22.5 Intake & Output: Intake and Output for Last 24 Hours 04/29/25 04/30/25 05/01/25 23:59 23:59 23:59 Intake Total 7591.3333 / 8071.3333 6807.5 / 6807.5 1000 / 1000 Output Total 6 / 6 Balance 7591.3333 / 8067.3333 6801.5 / 6801.5 1000 / 1000 Medical Nutrition Assessment Dietitian: Malnutrition Criteria Met Start: 04/27/25 14:17 Freq: Status: Active Protocol: Document 04/27/25 14:17 SB (Rec: 04/27/25 14:17 SB [id number]) Nutrition Malnutrition Evidence of Yes Malnutrition Exists Malnutrition (severe Acute Illness/Injury ): Evidenced By Suboptimal Energy Intake (Severe),Weight Loss (Severe) Clinical Problem Acute Disease or Injury Related Malnutrition Etiology severe related to inadequate oral intake Signs/Symptoms as evidenced by 10% unintentional weight loss x <1 month and PO meeting <50% of estimated nutrition needs x 1 month. Status Active Problem Recommendation Dietitian Adjust to regular, fat restriction diet. Recommendations/ Continue 120ml glucerna TID with medpass. Changes Will monitor weight trends. Lab / Micro Data 04/30/25 04:51 04/30/25 04:51 Labs: Laboratory Results - last 24 hr 04/30/25 04:51: Magnesium 1.5 04/30/25 11:24: POC Glucose 230 H 04/30/25 16:39: POC Glucose 147 H 05/01/25 05:35: Phosphorus 5.1 H, Total Bilirubin 0.59, Direct Bilirubin 0.32 H, AST 73 H, ALT 39 H, Alkaline Phosphatase 166 H, Total Protein 5.7 L, Albumin 3.0 L, Globulin 2.7 05/01/25 06:39: POC Glucose 168 H Physical Exam Narrative GENERAL: Tremulous HEENT: Atraumatic; normocephalic EYES; Anicteric, Normal Conjunctiva NECK; supple, normal thyroid, RESPIRATORY: Diminished to auscultation CARDIOVASCULAR: Regular S1 S2, GI: soft, normoactive bowel sounds, : No Renal angle tenderness; EXTREMITIES: No edema, no clubbing, MUSCULOSKELETAL: no muscle wasting NEURO: Awake; no lateralizing signs. SKIN: No Rash PSYCH; Flat affect Assessment & Plan Assessment/Plan (1) Pancreatitis: PLAN: Plan Patient is a 50-year-old lady with history of alcohol dependence, prior episodes of pancreatitis who presented with abdominal pain. Patient was found to have elevated lipase levels. 1. Acute on chronic pancreatitis ? Patient has been admitted to a monitored bed for symptom management including IV fluids, pain meds as well as antinausea medication. Plan is for patient to follow-up with GI following discharge ? 04/28/2025 patient lipase levels down and symptoms improving ? 04/30/2025; plan is to advance patient's diet 2. Alcohol withdrawal with delirium tremens ? Patient was started on CIWA protocol placed on phenobarb taper. ? 04/30/2025; patient has tolerated phenobarb taper well 3. Elevated transaminases ? Patient pattern consistent with alcohol use we will monitor ? 04/28/2025 patient transaminases continue to rise repeat labs ordered in the 4. Dyslipidemia ?Patient is on statin therapy, continued at home dose 5. COPD ? Currently not in exacerbation aerosol treatments as needed 6. Hypertension ? Blood pressure controlled, home medications continued with dose adjustment as needed 7. Diabetes mellitus type 2 ? Held patient oral antihypertensive agent placed on Accu-Cheks AC and at bedtime with sliding scale coverage 8. GERD ? Patient was placed on PPI 9. Tobacco dependence ? Counseled on cessation, offered nicotine patch for tobacco cravings 10. Depression with anxiety ? Patient is on citalopram bupropion as well as buspirone did continue 11. Macrocytosis ? Secondary to chronic alcohol use repeat CBC with differential ordered in a.m. 12. Mild hyponatremia ? Secondary to hypovolemic hyponatremia started on IV fluid with BMP ordered for a.m. 13. Chronic alcohol dependence ? Counseled on cessation 14. Hallucinations ?? Alcohol withdrawal patient denies being jittery. Will continue with monitoring and start patient on phenobarb. Initiated CIWA protocol ? Secondary to alcohol withdrawal management as discussed above 15. Hypophosphatemia -Corrected per protocol, repeat phosphate ordered for 16 Hypomagnesemia -Corrected for protocol, repeat magnesium ordered for a.m. 17. Hypokalemia - Secondary to GI losses. Corrected per protocol repeat labs ordered in a.m. for follow-up ? 04/29/2025; further drop in patient potassium level and order was given for parenteral potassium ? 04/30/2025; potassium down to 2.7. Additional replacement given via both parenteral and oral route 18. Thrombocytopenia ? Secondary to chronic alcohol use monitoring with CBC with differential 19. Anemia ? Secondary to chronic disorder monitoring H&H and transfuse if patient becomes symptomatic or hemoglobin falls below 7 20. DVT prophylaxis ? Patient had been started on enoxaparin given the significant drop in platelet count enoxaparin 21. Severe malnutrition. Related to: inadequate oral intake As evidenced by: 10% unintentional weight loss x <1 month and PO meeting <50% of estimated nutrition needs x 1 month. With treatment/resources used including: Adjust to regular, fat restriction diet. Continue 120ml glucerna TID with medpass. Will monitor weight trends. 22. Hypophosphatemia ? Secondary to aggressive repletion of patient low phosphate levels. Held patient phosphate 23. Physical deconditioning ? Requested for PT OT eval and nephrology social worker to assist with discharge planning Charges/Coding Visit Charges Inpatient E&M: 89401 Subs Hosp L2
[2025-05-01 11:49] LABS: Bedside Glucose 316 mg/dL (74-106)
[2025-05-01] MEDS: 0.9% Saline Lock 10 ML Syringe IV (16:57)
[2025-05-01] MEDS: HYDROmorphone 1 MG/ML Syringe IV (16:57)
[2025-05-01 17:26] LABS: Bedside Glucose 234 mg/dL (74-106)
[2025-05-01] MEDS: traZODone 100 MG Tablet PO (21:08)
[2025-05-02] VITALS (10 sets, daily range): BP systolic 122–160; BP diastolic 68–98; PULSE 82–91; RESP 14–18; TEMP 36.6–36.9; O2SAT 88–96
[2025-05-02] MEDS: Lactated Ringers 1,000 ML 150 ML IV ×3 (03:48→20:53)
[2025-05-02 06:24] LABS: Absolute Lymphocyte Count 1.17 X10^3/uL (0.83-4.51); Basophil# 0.03 X10^3/uL; Basophil% 0.6 % (0-1); Eosinophil# 0.17 X10^3/uL; Eosinophils% 3.3 % (0-5); Hematocrit 30.1 % (37-47); Hemoglobin 10.4 g/dL (12.0-15.0); Lymphocyte # 1.17 X10^3/ul (0.83-4.51); Lymphocyte % 22.5 % (19-41); Mean Corp Hgb Conc 34.6 g/dL (32-36); Mean Corpuscular Hgb 36.9 pg (27.0-32.0); Mean Corpuscular Volume 106.7 fL (81-99); Mean Platelet Vol. 10.3 fl (6.2-12.0); Monocyte# 0.82 X10^3/uL; Monocyte% 15.8 % (0-10); NRBC Flagged by Analyzer 0 % (0-5); Neutrophil # 2.97 X10^3/uL (2.7-7.7); Neutrophil % 57.2 % (47-70); Platelet Count 247 K/mm3 (150-450); RBC Distribution Width CV 12.5 % (11.6-14.6); RBC Distribution Width SD 49.4 fl (35.1-43.9); Red Blood Count 2.82 M/mm3 (4.2-5.4); White Blood Count 5.2 K/mm3 (4.4-11.0)
[2025-05-02] MEDS: busPIRone 5 MG Tablet PO ×3 (06:34→20:53)
[2025-05-02] MEDS: chlordiazePOXIDE 25 MG Capsule PO ×3 (06:34→20:53)
[2025-05-02] MEDS: Phenobarbital 32.4 MG Tablet PO ×2 (06:35→10:52)
[2025-05-02] MEDS: Insulin Lispro 100 UNIT/ML INSULN.PEN SC ×3 (06:50→16:35)
[2025-05-02 07:03] LABS: ALB/GLOB Ratio 1.2 RATIO (0.9-2.4); AST(SGOT) 40 U/L (<=31); Alanine Aminotransfer ALT/SGPT 33 U/L (<=34); Albumin, Serum 3.1 g/dL (3.5-5.0); Alkaline Phosphatase 230 U/L (35-104); Anion Gap 11 (5-15); BUN 7 mg/dL (4-19); BUN/Creat Ratio 13.6 RATIO (10-20); Calcium,Total 8.7 mg/dL (7.6-11.0); Carbon Dioxide 28.5 mmol/L (21.0-32.0); Chloride 95 mmol/L (98-108); Creatinine, Serum 0.52 mg/dL (0.70-1.20); EST Glomerular Filtration Rate 115 (>60); Estimated Creatinine Clearance 114.25 ml/min (50-250); Globulin 2.7 g/dL (2.2-4.2); Glucose 197 mg/dL (70-99); Magnesium 1.2 mg/dL (1.5-2.2); Potassium 4.2 mmol/L (3.3-5.1); Protein, Total 5.8 g/dL (5.9-8.4); Sodium Level 134 mmol/L (133-145); Total Bilirubin 0.49 mg/dL (0.00-1.30)
[2025-05-02 07:08] LABS: Bedside Glucose 196 mg/dL (74-106)
[2025-05-02] MEDS: Albuterol 2.5 MG/3 ML VIAL.NEB. INHALATION ×3 (07:09→19:40)
[2025-05-02] MEDS: Budesonide Respules 0.5 MG/2 ML AMPUL.NEB. INHALATION ×2 (07:09→19:40)
--- NOTE | 2025-05-02 07:36 | PCM.PN.HOSP ---
Reason for Visit Reason for Visit: Diagnoses Acute pancreatitis without necrosis or infection, unspecified (04/26/25) Subjective Subjective Patient seen participating in therapy patient remains significantly tremulous at rest. Patient is scheduled to finish the phenobarb taper today Objective Data Objective Data Vital Signs: Vital Signs Temp Pulse Resp BP Pulse Ox O2 Del Method O2 Flow Rate 98.0 F 88 14 160/98 H 91 Room Air 2 05/02/25 03:45 05/02/25 07:10 05/02/25 07:10 05/02/25 03:45 05/02/25 07:10 05/02/25 07:10 05/01/25 10:35 Oxygen Flow Rate (L/min) 2 Oxygen Delivery Method Room Air Weight: 59.5 kg Body Mass Index (BMI) 22.5 Intake & Output: Intake and Output for Last 24 Hours 04/30/25 05/01/25 05/02/25 23:59 23:59 23:59 Intake Total 6807.5 / 6807.5 3970 / 3970 1000 / 1000 Output Total 6 / 6 Balance 6801.5 / 6801.5 3970 / 3970 1000 / 1000 Medical Nutrition Assessment Dietitian: Malnutrition Criteria Met Start: 04/27/25 14:17 Freq: Status: Active Protocol: Document 04/27/25 14:17 SB (Rec: 04/27/25 14:17 SB [id number]) Nutrition Malnutrition Evidence of Yes Malnutrition Exists Malnutrition (severe Acute Illness/Injury ): Evidenced By Suboptimal Energy Intake (Severe),Weight Loss (Severe) Clinical Problem Acute Disease or Injury Related Malnutrition Etiology severe related to inadequate oral intake Signs/Symptoms as evidenced by 10% unintentional weight loss x <1 month and PO meeting <50% of estimated nutrition needs x 1 month. Status Active Problem Recommendation Dietitian Adjust to regular, fat restriction diet. Recommendations/ Continue 120ml glucerna TID with medpass. Changes Will monitor weight trends. Lab / Micro Data 05/02/25 05:45 05/02/25 05:45 Labs: Laboratory Results - last 24 hr 05/01/25 11:31: POC Glucose 316 H 05/01/25 16:55: POC Glucose 234 H 05/02/25 05:45: WBC 5.2, RBC 2.82 L, Hgb 10.4 L, Hct 30.1 L, MCV 106.7 H, MCH 36.9 H, MCHC 34.6, RDW Std Deviation 49.4 H, RDW Coeff of Braxton 12.5, Plt Count 247, MPV 10.3, Immature Gran % (Auto) 0.600, Neut % (Auto) 57.2, Lymph % (Auto) 22.5, [place] % (Auto) 15.8 H, Eos % (Auto) 3.3, Baso % (Auto) 0.6, Absolute Neuts (auto) 3.0, Absolute Lymphs (auto) 1.17, Nucleated RBC % 0, Sodium 134, Potassium 4.2, Chloride 95 L, Carbon Dioxide 28.5, Anion Gap 11, BUN 7, Creatinine 0.52 L, Estim Creat Clear Calc 114.25, Est GFR (MDRD) Non-Af 115, BUN/Creatinine Ratio 13.6, Glucose 197 H, Calcium 8.7, Phosphorus 5.0 H, Magnesium 1.2 L, Total Bilirubin 0.49, AST 40 H, ALT 33, Alkaline Phosphatase 230 H, Total Protein 5.8 L, Albumin 3.1 L, Globulin 2.7, Albumin/Globulin Ratio 1.2 05/02/25 06:46: POC Glucose 196 H Physical Exam Narrative GENERAL: Tremulous HEENT: Atraumatic; normocephalic EYES; Anicteric, Normal Conjunctiva NECK; supple, normal thyroid, RESPIRATORY: Diminished to auscultation CARDIOVASCULAR: Regular S1 S2, GI: soft, normoactive bowel sounds, : No Renal angle tenderness; EXTREMITIES: No edema, no clubbing, MUSCULOSKELETAL: no muscle wasting NEURO: Awake; no lateralizing signs. SKIN: No Rash PSYCH; Flat affect Assessment & Plan Assessment/Plan (1) Pancreatitis: PLAN: Plan Patient is a 50-year-old lady with history of alcohol dependence, prior episodes of pancreatitis who presented with abdominal pain. Patient was found to have elevated lipase levels. 1. Acute on chronic pancreatitis ? Patient has been admitted to a monitored bed for symptom management including IV fluids, pain meds as well as antinausea medication. Plan is for patient to follow-up with GI following discharge ? 04/28/2025 patient lipase levels down and symptoms improving ? 04/30/2025; plan is to advance patient's diet ? 05/02/2025; patient pain controlled. 2. Alcohol withdrawal with delirium tremens ? Patient was started on CIWA protocol placed on phenobarb taper. ? 04/30/2025; patient has tolerated phenobarb taper well ?05/02/2025; patient scheduled to complete the phenobarb taper this evening 3. Elevated transaminases ? Patient pattern consistent with alcohol use we will monitor ? 04/28/2025 patient transaminases continue to rise repeat labs ordered in the 4. Dyslipidemia ?Patient is on statin therapy, continued at home dose 5. COPD ? Currently not in exacerbation aerosol treatments as needed 6. Hypertension ? Blood pressure controlled, home medications continued with dose adjustment as needed 7. Diabetes mellitus type 2 ? Held patient oral antihypertensive agent placed on Accu-Cheks AC and at bedtime with sliding scale coverage 8. GERD ? Patient was placed on PPI 9. Tobacco dependence ? Counseled on cessation, offered nicotine patch for tobacco cravings 10. Depression with anxiety ? Patient is on citalopram bupropion as well as buspirone did continue 11. Macrocytosis ? Secondary to chronic alcohol use repeat CBC with differential ordered in a.m. 12. Mild hyponatremia ? Secondary to hypovolemic hyponatremia started on IV fluid with BMP ordered for a.m. 13. Chronic alcohol dependence ? Counseled on cessation 14. Hallucinations ?? Alcohol withdrawal patient denies being jittery. Will continue with monitoring and start patient on phenobarb. Initiated CIWA protocol ? Secondary to alcohol withdrawal management as discussed above 15. Hypophosphatemia -Corrected per protocol, repeat phosphate ordered for 16 Hypomagnesemia -Corrected for protocol, repeat magnesium ordered for a.m. 17. Hypokalemia - Secondary to GI losses. Corrected per protocol repeat labs ordered in a.m. for follow-up ? 04/29/2025; further drop in patient potassium level and order was given for parenteral potassium ? 04/30/2025; potassium down to 2.7. Additional replacement given via both parenteral and oral route 18. Thrombocytopenia ? Secondary to chronic alcohol use monitoring with CBC with differential 19. Anemia ? Secondary to chronic disorder monitoring H&H and transfuse if patient becomes symptomatic or hemoglobin falls below 7 20. DVT prophylaxis ? Patient had been started on enoxaparin given the significant drop in platelet count enoxaparin 21. Severe malnutrition. Related to: inadequate oral intake As evidenced by: 10% unintentional weight loss x <1 month and PO meeting <50% of estimated nutrition needs x 1 month. With treatment/resources used including: Adjust to regular, fat restriction diet. Continue 120ml glucerna TID with medpass. Will monitor weight trends. 22. Hypophosphatemia ? Secondary to aggressive repletion of patient low phosphate levels. Held patient phosphate 23. Physical deconditioning ? Requested for PT OT eval and social media manager to assist with discharge planning Charges/Coding Visit Charges Inpatient E&M: 64212 Subs Hosp L2
[2025-05-02] MEDS: Pantoprazole Sodium 40 MG Tablet PO ×2 (08:30→20:53)
[2025-05-02] MEDS: Potassium Chloride Oral Tablet 20 MEQ PO ×2 (08:30→16:36)
[2025-05-02] MEDS: Montelukast 10 MG Tablet PO (08:31)
[2025-05-02] MEDS: Folic Acid 1 MG Tablet PO (08:31)
[2025-05-02] MEDS: Citalopram 40 MG TABLET PO (08:31)
[2025-05-02] MEDS: Magnesium Sulfate 4gm/100mL 4 GM/100 ML IV.SOLN. IV (08:31)
[2025-05-02] MEDS: buPROPion (XL) 150 MG TABLET.XL PO (08:31)
[2025-05-02] MEDS: Metoprolol(XL)Succ 25 MG Tablet PO (08:32)
[2025-05-02] MEDS: Thiamine Hydrochloride 100 MG Tablet PO (08:32)
[2025-05-02] MEDS: amLODIPine 5 MG Tablet PO (08:32)
[2025-05-02] MEDS: Atorvastatin Calcium 40 MG Tablet PO (08:32)
[2025-05-02] MEDS: Aspirin 81 MG TAB.CHEW PO (08:32)
[2025-05-02] MEDS: Magnesium Chloride 64 MG Delay Rel.Tablet PO (08:32)
[2025-05-02] MEDS: Lisinopril 40 MG Tablet PO (08:33)
[2025-05-02 10:54] LABS: Bedside Glucose 198 mg/dL (74-106)
--- NOTE | 2025-05-02 13:00 | NURSING ---
This RN is taking over care at this time.
[2025-05-02] MEDS: HYDROmorphone 1 MG/ML Syringe IV (15:00)
[2025-05-02] MEDS: Acetaminophen 325 MG Tablet 650 MG PO (15:00)
[2025-05-02 17:42] LABS: Bedside Glucose 288 mg/dL (74-106)
[2025-05-02] MEDS: traZODone 100 MG Tablet PO (20:53)
[2025-05-03] VITALS (10 sets, daily range): BP systolic 111–152; BP diastolic 50–84; PULSE 82–102; RESP 12–18; TEMP 36.4–37.2; O2SAT 90–97
[2025-05-03] MEDS: Lactated Ringers 1,000 ML 150 ML IV ×3 (04:05→19:13)
[2025-05-03 05:49] LABS: Absolute Lymphocyte Count 1.14 X10^3/uL (0.83-4.51); Absolute Neutrophil Count 3.5 X10^3/uL (2.0-7.7); Basophil# 0.04 X10^3/uL; Basophil% 0.7 % (0-1); Eosinophil# 0.18 X10^3/uL; Eosinophils% 3.1 % (0-5); Hemoglobin 10.4 g/dL (12.0-15.0); Lymphocyte # 1.14 X10^3/ul (0.83-4.51); Lymphocyte % 19.7 % (19-41); Mean Corp Hgb Conc 33.5 g/dL (32-36); Mean Corpuscular Hgb 35.6 pg (27.0-32.0); Mean Corpuscular Volume 106.2 fL (81-99); Mean Platelet Vol. 10.2 fl (6.2-12.0); Monocyte# 0.87 X10^3/uL; Monocyte% 15.1 % (0-10); NRBC Flagged by Analyzer 0 % (0-5); Neutrophil # 3.53 X10^3/uL (2.7-7.7); Neutrophil % 61.1 % (47-70); Platelet Count 297 K/mm3 (150-450); RBC Distribution Width CV 12.5 % (11.6-14.6); RBC Distribution Width SD 49.1 fl (35.1-43.9); Red Blood Count 2.92 M/mm3 (4.2-5.4); White Blood Count 5.8 K/mm3 (4.4-11.0)
[2025-05-03] MEDS: chlordiazePOXIDE 25 MG Capsule PO (06:05)
[2025-05-03] MEDS: busPIRone 5 MG Tablet PO ×3 (06:05→22:11)
[2025-05-03] MEDS: Insulin Lispro 100 UNIT/ML INSULN.PEN SC ×3 (06:05→17:30)
[2025-05-03 06:16] LABS: ALB/GLOB Ratio 1.1 RATIO (0.9-2.4); AST(SGOT) 48 U/L (<=31); Alanine Aminotransfer ALT/SGPT 38 U/L (<=34); Albumin, Serum 3.1 g/dL (3.5-5.0); Alkaline Phosphatase 311 U/L (35-104); Anion Gap 9 (5-15); BUN 7 mg/dL (4-19); BUN/Creat Ratio 12.9 RATIO (10-20); Calcium,Total 8.5 mg/dL (7.6-11.0); Carbon Dioxide 28.2 mmol/L (21.0-32.0); Chloride 97 mmol/L (98-108); Creatinine, Serum 0.58 mg/dL (0.70-1.20); EST Glomerular Filtration Rate 112 (>60); Estimated Creatinine Clearance 102.43 ml/min (50-250); Globulin 2.8 g/dL (2.2-4.2); Glucose 227 mg/dL (70-99); Potassium 4.8 mmol/L (3.3-5.1); Protein, Total 5.9 g/dL (5.9-8.4); Sodium Level 135 mmol/L (133-145); Total Bilirubin 0.32 mg/dL (0.00-1.30)
[2025-05-03 06:27] LABS: Bedside Glucose 220 mg/dL (74-106)
[2025-05-03] MEDS: Albuterol 2.5 MG/3 ML VIAL.NEB. INHALATION ×3 (06:53→19:30)
[2025-05-03] MEDS: Budesonide Respules 0.5 MG/2 ML AMPUL.NEB. INHALATION ×2 (06:53→19:30)
[2025-05-03] MEDS: Aspirin 81 MG TAB.CHEW PO (08:58)
[2025-05-03] MEDS: Folic Acid 1 MG Tablet PO (08:58)
[2025-05-03] MEDS: Thiamine Hydrochloride 100 MG Tablet PO (08:59)
[2025-05-03] MEDS: Potassium Chloride Oral Tablet 20 MEQ PO ×2 (08:59→17:33)
[2025-05-03] MEDS: Magnesium Chloride 64 MG Delay Rel.Tablet PO (10:02)
[2025-05-03] MEDS: amLODIPine 5 MG Tablet PO (10:02)
[2025-05-03] MEDS: Pantoprazole Sodium 40 MG Tablet PO ×2 (10:02→22:11)
[2025-05-03] MEDS: Atorvastatin Calcium 40 MG Tablet PO (10:02)
[2025-05-03] MEDS: Citalopram 40 MG TABLET PO (10:02)
[2025-05-03] MEDS: buPROPion (XL) 150 MG TABLET.XL PO (10:03)
[2025-05-03] MEDS: Montelukast 10 MG Tablet PO (10:03)
[2025-05-03] MEDS: Lisinopril 40 MG Tablet PO (10:03)
[2025-05-03] MEDS: Metoprolol(XL)Succ 25 MG Tablet PO (10:04)
[2025-05-03] MEDS: HYDROmorphone 1 MG/ML Syringe IV (10:11)
[2025-05-03] MEDS: Ondansetron 4 MG/2 ML Vial IV (10:12)
--- NOTE | 2025-05-03 11:36 | PN.HOSP_ITS ---
Reason for Visit Reason for Visit: Diagnoses Acute pancreatitis without necrosis or infection, unspecified (04/26/25) Subjective Subjective Patient has completed phenobarb taper. She however remains physically deconditioned. She is agreeable to being discharged to a assisted facility for rehab Objective Data Objective Data Vital Signs: Vital Signs Temp Pulse Resp BP Pulse Ox O2 Del Method O2 Flow Rate 97.5 F L 102 H 18 141/80 H 90 Room Air 3 05/03/25 05:57 05/03/25 10:04 05/03/25 06:50 05/03/25 10:04 05/03/25 06:50 05/03/25 06:50 05/03/25 01:10 Oxygen Flow Rate (L/min) 3 Oxygen Delivery Method Room Air Weight: 59.5 kg Body Mass Index (BMI) 22.5 Intake & Output: Intake and Output for Last 24 Hours 05/01/25 05/02/25 05/03/25 23:59 23:59 23:59 Intake Total 3970 / 3970 3412.5 / 3412.5 1000 / 1000 Balance 3970 / 3970 3412.5 / 3412.5 1000 / 1000 Medical Nutrition Assessment Dietitian: Malnutrition Criteria Met Start: 04/27/25 14:17 Freq: Status: Active Protocol: Document 04/27/25 14:17 SB (Rec: 04/27/25 14:17 SB [id number]) Nutrition Malnutrition Evidence of Yes Malnutrition Exists Malnutrition (severe Acute Illness/Injury ): Evidenced By Suboptimal Energy Intake (Severe),Weight Loss (Severe) Clinical Problem Acute Disease or Injury Related Malnutrition Etiology severe related to inadequate oral intake Signs/Symptoms as evidenced by 10% unintentional weight loss x <1 month and PO meeting <50% of estimated nutrition needs x 1 month. Status Active Problem Recommendation Dietitian Adjust to regular, fat restriction diet. Recommendations/ Continue 120ml glucerna TID with medpass. Changes Will monitor weight trends. Lab / Micro Data 05/03/25 05:08 05/03/25 05:08 Labs: Laboratory Results - last 24 hr 05/02/25 16:35: POC Glucose 288 H 05/03/25 05:08: WBC 5.8, RBC 2.92 L, Hgb 10.4 L, Hct 31.0 L, MCV 106.2 H, MCH 35.6 H, MCHC 33.5, RDW Std Deviation 49.1 H, RDW Coeff of Braxton 12.5, Plt Count 297, MPV 10.2, Immature Gran % (Auto) 0.300, Neut % (Auto) 61.1, Lymph % (Auto) 19.7, [place] % (Auto) 15.1 H, Eos % (Auto) 3.1, Baso % (Auto) 0.7, Absolute Neuts (auto) 3.5, Absolute Lymphs (auto) 1.14, Nucleated RBC % 0, Sodium 135, Potassium 4.8, Chloride 97 L, Carbon Dioxide 28.2, Anion Gap 9, BUN 7, C reatinine 0.58 L, Estim Creat Clear Calc 102.43, Est GFR (MDRD) Non-Af 112, BUN/Creatinine Ratio 12.9, Glucose 227 H, Calcium 8.5, Total Bilirubin 0.32, AST 48 H, ALT 38 H, Alkaline Phosphatase 311 H, Total Protein 5.9, Albumin 3.1 L, Globulin 2.8, Albumin/Globulin Ratio 1.1 05/03/25 06:02: POC Glucose 220 H Physical Exam Narrative GENERAL: Tremulous HEENT: Atraumatic; normocephalic EYES; Anicteric, Normal Conjunctiva NECK; supple, normal thyroid, RESPIRATORY: Diminished to auscultation CARDIOVASCULAR: Regular S1 S2, GI: soft, normoactive bowel sounds, : No Renal angle tenderness; EXTREMITIES: No edema, no clubbing, MUSCULOSKELETAL: no muscle wasting NEURO: Awake; no lateralizing signs. SKIN: No Rash PSYCH; Flat affect Assessment & Plan Assessment/Plan (1) Pancreatitis: PLAN: Plan Patient is a 50-year-old lady with history of alcohol dependence, prior episodes of pancreatitis who presented with abdominal pain. Patient was found to have elevated lipase levels. 1. Acute on chronic pancreatitis ? Patient has been admitted to a monitored bed for symptom management including IV fluids, pain meds as well as antinausea medication. Plan is for patient to follow-up with GI following discharge ? 04/28/2025 patient lipase levels down and symptoms improving ? 04/30/2025; plan is to advance patient's diet ? 05/02/2025; patient pain controlled. 2. Alcohol withdrawal with delirium tremens ? Patient was started on CIWA protocol placed on phenobarb taper. ? 04/30/2025; patient has tolerated phenobarb taper well ?05/02/2025; patient scheduled to complete the phenobarb taper this evening ? 05/03/2025; patient has completed phenobarb taper 3. Elevated transaminases ? Patient pattern consistent with alcohol use we will monitor ? 04/28/2025 patient transaminases continue to rise repeat labs ordered in the 4. Dyslipidemia ?Patient is on statin therapy, continued at home dose 5. COPD ? Currently not in exacerbation aerosol treatments as needed 6. Hypertension ? Blood pressure controlled, home medications continued with dose adjustment as needed 7. Diabetes mellitus type 2 ? Held patient oral antihypertensive agent placed on Accu-Cheks AC and at bedtime with sliding scale coverage 8. GERD ? Patient was placed on PPI 9. Tobacco dependence ? Counseled on cessation, offered nicotine patch for tobacco cravings 10. Depression with anxiety ? Patient is on citalopram bupropion as well as buspirone did continue 11. Macrocytosis ? Secondary to chronic alcohol use repeat CBC with differential ordered in a.m. 12. Mild hyponatremia ? Secondary to hypovolemic hyponatremia started on IV fluid with BMP ordered for a.m. 13. Chronic alcohol dependence ? Counseled on cessation 14. Hallucinations ?? Alcohol withdrawal patient denies being jittery. Will continue with monitoring and start patient on phenobarb. Initiated CIWA protocol ? Secondary to alcohol withdrawal management as discussed above 15. Hypophosphatemia -Corrected per protocol, repeat phosphate ordered for 16 Hypomagnesemia -Corrected for protocol, repeat magnesium ordered for a.m. 17. Hypokalemia - Secondary to GI losses. Corrected per protocol repeat labs ordered in a.m. for follow-up ? 04/29/2025; further drop in patient potassium level and order was given for parenteral potassium ? 04/30/2025; potassium down to 2.7. Additional replacement given via both parenteral and oral route 18. Thrombocytopenia ? Secondary to chronic alcohol use monitoring with CBC with differential 19. Anemia ? Secondary to chronic disorder monitoring H&H and transfuse if patient becomes symptomatic or hemoglobin falls below 7 20. DVT prophylaxis ? Patient had been started on enoxaparin given the significant drop in platelet count enoxaparin 21. Severe malnutrition. Related to: inadequate oral intake As evidenced by: 10% unintentional weight loss x <1 month and PO meeting <50% of estimated nutrition needs x 1 month. With treatment/resources used including: Adjust to regular, fat restriction diet. Continue 120ml glucerna TID with medpass. Will monitor weight trends. 22. Hypophosphatemia ? Secondary to aggressive repletion of patient low phosphate levels. Held patient phosphate 23. Physical deconditioning ? Requested for PT OT eval and social media marketer to assist with discharge planning ? 05/03/2025; patient remains physical deconditioning. She is agreeable to being discharged with assisted facility for rehab this was discussed with patient's son Tan was in the room Charges/Coding Visit Charges Inpatient E&M: [id number] Subs Hosp L2
--- NOTE | 2025-05-03 11:44 | CASEMGMT ---
Therapy indicated patient is not doing well with therapy and should go somewhere for rehab. SW met with patient. Introduced self and role at [facility]. SW explained therapy's recommendations for rehab. Patient is agreeable. LAI told patient LAI will have Ritu from [employer] come up and help her apply for Medicaid for SNF. SW contacted Ritu and she will see patient. Plan: SNF pending a Medicaid pending number, patient's SNF choices, and accepting facility. Lyla HANNA
[2025-05-03 12:44] LABS: Bedside Glucose 237 mg/dL (74-106)
--- NOTE | 2025-05-03 12:53 | CASEMGMT ---
Discharge Planning A list of SNF providers including quality and resource use data and consistent with the patient's preferred geographic region, medical needs, and insurance network was created in [employer] Guide.? This list was provided to the pt. Dara Orr, Discharge Planning Asst.
--- NOTE | 2025-05-03 14:05 | CASEMGMT ---
Ritu from [employer] attempted to complete the Medicaid application with patient. However, patient is too lethargic and would not stay awake to talk with Ritu. iRtu will try again later. Patient will not be able to go to a detention until she can complete a Medicaid application and an accepting facililty is found. Lyla Marmolejo [employer]OR[employer] RECRUITER JACQUES
[2025-05-03 17:38] LABS: Bedside Glucose 230 mg/dL (74-106)
--- OUTSIDE RECORDS SUMMARY | 2025-05-03 21:49 | XMS RPT_ITS | CCD ---
Author Organization [facility] Team Providers Care Edge Burnisher Name Role Phone Required, No Pcp Unavailable Unavailable Noe Engel Unavailable Ihsan Aguilar DO Primary Care Provider Calvin Waldrop Primary Care Provider Unavailabl e Calvin Waldrop Referring Provider Unavailable LUIS Youssef Attending Provider Dr. Calvin Waldrop Primary Care Provider Dr. Calvin Waldrop Referring Provider Kelly SMITH, PA Daniel Pederson Attending Provider Amanda SMITH, PA Cassandra Pederson Attending Provider Dr. Saumya Tavares Emergency Provider Dr. Jay Kay Admit Provider Dr. Jay Kay Other Provider Dr. Calvin Piña Attending Provider Dr. Jay Kay Attending Provider Dr. Calvin Piña Other Provider DO Milana Garcia Primary Care Provider DO Milana Garcia Referring Provider Beau SMITH, PA Jericho Attending Provider Dr. David Jacobs Emergency Provider Dr. Young Kiran Admit Provider Dr. Young Kiran Other Provider Dr. Radha Johnson Attending Provider Dr. Radha Johnson Other Provider Dr. Jose Taylor Attending Provider Dr. Young Kiran Referring Provider Ganesh RN DOCUMENTATION SPECIALIST, RN DOCUMENTATION SPECIALIST-C Jim Attending Provider Jose, DO Milana M Primary Care Provider Jose, DO Milana M Referring Provider Beau SMITH PA Jericho Attending Provider Jose, DO Milana M Primary Care Provider Jose, DO Milana M Primary Care Provider Jose, DO Milana M Referring Provider LUIS Rosario Attending Provider Ganesh RN DOCUMENTATION SPECIALIST, RN DOCUMENTATION SPECIALIST-C Jim Attending Provider LUIS Gramajo Attending Provider Jose, DO Milana M Primary Care Provider Jose, DO Milana M Referring Provider LUIS Gramajo Attending Provider Dr. Jose Taylor Attending Provider Ihsan Aguilar DO Primary Care Provider [phone] IHSAN AGUILAR Primary Care Unavailable Sudha LEBLANC, Abisai Primary Care Provider Dr. Imani Knight DO Emergency Provider Dr. Imani Knight DO Attending Provider Dr. Francisco Colon MD Emergency Provider Dr. Francisco Colon MD Attending Provider Dr. Humphrey Garcia DO Referring Provider Dr. Humphrey Garcia DO Emergency Provider Dr[facility] Julius Moncada MD [facility] Dr. [place] Attending Provider Julius Loredo Admitting Unavailable Julius Moncada Attending Unavailable Latrell Moncadaya Consulting Unavailable Humphrey Garcia Referring Unavailable Sudha, Chalon Primary Care Unavailable Sudha, Chalon Primary Care Unavailable Rober Concepcion Attending Unavailable Imani Knight Attending Unavailable Sudha, Chalon Primary Care Unavailable Canelo Myers Attending Unavailable Canelo Myers Consulting Unavailable Sudha, Chalon Referring Unavailable Sudha, Chalon Attending Unavailable Sudha, Chalon Primary Care Unavailable Francisco Colon Attending Unavailable Sudha, Chalon Primary Care Unavailable Sudha, Chalon Attending Unavailable Sudha, Chalon Primary Care Unavailable Sudha, Chalon Referring Unavailable Sudha, Chalon Primary Care Unavailable Milana Garcia Referring Unavailable Amanda SMITH, Cassandra Pederson Attending Unavail able Sudha, Chalon Primary Care Unavailable Amanda PA, Cassandra M Referring Unavail able Amanda PA, Cassandra Pederson Attending Unavail able Latrell, Ivon Referring Unavailable Latrell Ivon Attending Unavailable Sudha, Chalon Primary Care Unavailable Shane Jacobs Attending Unavailable Sudha, Chalon Primary Care Unavailable Sudha, Chalon Referring Unavailable Latrell, Ivon Attending Unavailable Sudha, Chalon Primary Care Unavailable Sudha, Chalon Primary Care Unavailable Jose Taylor Attending Unavailable Sudha, Chalon Referring Unavailable Lorenzo Stewart Attending Unavailable Sudha, Chalon Primary Care Unavailable Medications Current Medications Medication Drug Class(es) Dates Sig (Normalized) Sig (Original) [id number] 200 actuat albuterol 0.09 mg/actuat metered dose inhaler (20 sources) beta2-Adrenergic Agonist Start: 02-12-2023 End: 04-27-2024 Albuterol Sulfate 90 mcg/actuation HFA aerosol inhaler Active 2 NMA INHALATION EVERY 6 HOURS as needed for shortness of breath or wheezing 8.April 27, 2024 10:01am Start: 02-12-2023 take 1 puff(s) by in halation every six hours Albuterol Sulfate Active 2 PUFF INHALATION EVERY 6 HOURS 8.February 12, 2023 12:00am Start: 09-12-2018 End: 02-23-2021 take 1 puff(s) by inhalation every four hours as needed Albuterol Sulfate Discontinued 2 PUFF INHALATION EVERY 4 HOURS NEEDED September 12, 2018 9:54am February 23, 2021 9:16am Dispense with Spacer Start: 09-12-2018 End: 02-23-2021 Albuterol Sulfate 1 INHALER inhaler Discontinued 2 NMA INHALATION EVERY 4 HOURS NEEDED as needed for Wheezing September 12, 2018 12:00am February 23, 2021 9:16am Dispense with Spacer Start: 09-12-2018 End: 02-23-2021 take 1 puff(s) by inhalation every four hours as needed Albuterol Sulfate Discontinued 2 PUFF INHALATION EVERY 4 HOURS NEEDED September 12, 2018 12:00am February 23, 2021 9:16am Dispense with Spacer Start: 06-07-2017 End: 02-23-2021 Albuterol Sulfate 1 INHALER inhaler Discontinued 1 - 2 NMA INHALATION EVERY 6 HOURS NEEDED as needed for Wheezing June 07, 2017 12:00am February 23, 2021 9:16am Start: 06-07-2017 End: 02-23-2021 take 1 puff(s) by inhalation every six hours as needed Albuterol Sulfate Discontinued 1 - 2 PUFF INHALATION EVERY 6 HOURS NEEDED June 07, 2017 12:00am February 23, 2021 9:16am take 2 puff(s) by in halation every four hours as needed albuterol HFA (PROVENTIL HFA, VENTOLIN HFA) 90 mcg/actuation inhaler INHALE 2 (two) PUFFS every 4 hours as needed 0 Active amLODIPine 5 mg oral tablet (10 sources) Dihydropyridine Calcium Channel Lovely Start: 04-04-2025 take 1 tablet by mouth once daily Amlodipine 5 mg tablet Active 5 mg PO DAILY April 04, 2025 12:00am Start: 11-19-2022 take 5 mg by mouth once daily Amlodipine Active 5 MG PO DAILY November 19, 2022 1:00am Start: 04-01-2020 take 1 tablet by jean th once daily amLODIPine (NORVASC) 10 mg tablet Indications: Essential hypertension Take 1 tablet by mouth once daily. 90 tablet 04/01/2020 Active Start: 09-04-2018 take 10 mg by mouth once daily Amlodipine Active 10 MG PO DAILY September 04, 2018 10:38pm Comment on above: Take 1 tablet by jean th once daily. aspirin 81 mg chewable tablet (17 sources) Platelet Aggregation Inhibitor, Nonsteroidal Anti-inflammatory Drug Start: 2 take 1 tablet by mouth once daily Aspirin 81 mg Tablet,Chewable Active 81 mg PO DAILY@0800 30 November 19, 2022 1:00am atorvastatin 40 mg oral tablet (11 sources) HMG-CoA Reductase Inhibitor Start: 3 End: 5 take 1 tablet by mouth once daily Atorvastatin 40 mg tablet Active 40 mg PO DAILY April 16, 2025 12:53pm Budesonide-Formoterol (16 sources) Corticosteroid, beta2-Adrenergic Agonist Start: 5 Budesonide-Formotero l 160-4.5 mcg/actuation HFA aerosol inhaler Active 2 NMA INHALATION TWICE A DAY April 26, 2025 12:00am Start: 04-09-2023 Budesonide-For moterol (Symbicort) 80-4.5 mcg/actuation Hfa Aerosol Inhaler Active 1 NMA INHALATION TWICE A DAY April 09, 2023 12:00am Start: 04-09-2023 take 1 puff(s) by in halation twice daily Budesonide-Formoterol (Symbicort) 80-4.5 mcg/actuation Hfa Aerosol Inhaler Active 1 PUFF INHALATION TWICE A DAY April 08, 2023 11:00pm Start: 04-09-2023 take 1 puff(s) by in halation twice daily Budesonide-Formoterol (Symbicort) 80-4.5 mcg/actuation Hfa Aerosol Inhaler Active 1 PUFF INHALATION TWICE A DAY April 09, 2023 12:00am Start: 07-04-2015 budesonide-for moterol (SYMBICORT) 80-4.5 mcg/actuation inhaler Inhale as instructed. 0 07/04/2015 Active 24 hr buPROPion hydrochloride 150 mg extended release oral tablet (19 sources) Aminoketone Start: 06-07-2020 take 1 tablet by mouth once daily Bupropion Hcl 150 mg tablet extended release 24 hr Active 150 mg PO DAILY January 21, 2023 1:00am Comment on above: Take 1 tablet by jean once daily. busPIRone hydrochloride 5 mg oral tablet (4 sources) Start: 04-04-2025 take 1 tablet by mouth three times daily Buspirone 5 mg tablet Active 5 mg PO THREE TIMES A DAY April 04, 2025 12:00am Start: 02-23-2021 take 15 mg by mouth twice isabel y Buspirone Active 15 MG PO TWICE A DAY February 23, 2021 9:15am cholecalciferol 0.05 mg oral capsule (6 sources) Vitamin D Start: 08-25-2023 take 1 capsule by mouth once daily Cholecalciferol (Vitamin D3) 50 mcg (2,000 unit) capsule Active 50 ug PO DAILY August 25, 2023 12:00am citalopram 40 mg oral tablet (18 sources) Serotonin Reuptake Inhibitor Start: 04-11-2025 take 1 tablet by mouth once daily Citalopram 40 mg tablet Active 40 mg PO DAILY April 11, 2025 12:00am Start: 03-22-2023 End: 04-11-2025 take 1 tablet by mouth once daily Citalopram 20 mg tablet Discontinued 20 mg PO DAILY March 22, 2023 12:00am April 11, 2025 10:18pm cyclobenzaprine hydrochloride 10 mg oral tablet (3 sources) Muscle Relaxant Start: 07-21-2022 take 1 tablet by mouth every eight hours as needed cyclobenzaprine (FLEXERIL) 10 mg tablet Take 1 tablet by mouth three times daily as needed for muscle spasm. 21 tablet 07/21/2022 Active Comment on above: Take 1 tablet by [facility] three times daily as needed for muscle spasm. empagliflozin 25 mg oral tablet (20 sources) Sodium-Glucose Cotransporter 2 Inhibitor Start: 11-12-2024 take 1 tablet by mouth once daily Empagliflozin (Empagliflozin 25 Mg Tablet) 25 mg tablet Active 25 mg PO DAILY November 12, 2024 1:00am Start: 01-21-2023 End: 11-12-2024 take 1 tablet by mouth once daily Empagliflozin (Jardiance) 10 mg tablet Discontinued 25 mg PO DAILY August 28, 2024 1:30pm November 12, 2024 11:29am fluticasone propionate 0.05 mg/actuat metered dose nasal spray (20 sources) Corticosteroid Start: 04-22-2024 take 2 spray(s) by mouth once daily fluticasone (FLONASE) 50 mcg/actuation nasal spray Indications: Sinus congestion Use 2 Sprays in each nostril once daily. Rinse mouth after use. 1 Each 0 04/22/2024 Active Start: 07-25-2019 End: 02-23-2021 Fluticasone Propionate 1 INH ALER inhaler Discontinued 1 NMA INHALATION TWICE A DAY July 25, 2019 12:00am February 23, 2021 9:17am Start: 07-25-2019 End: 02-23-2021 take 1 puff(s) by inhalation twice daily Fluticasone Propionate Discontinued 1 PUFF INHALATION TWICE A DAY July 25, 2019 12:00am February 23, 2021 9:17am hydrOXYzine hydrochloride 10 mg oral tablet (7 sources) Antihistamine Start: 04-04-2025 take 1 tablet by mouth three times daily as needed for anxiety Hydroxyzine Hcl 10 mg tablet Active 10 mg PO 3 TIMES DAILY NEEDED as needed for anxiety April 04, 2025 12:00am Start: 04-01-2020 take 1 tablet by jean th every six hours as needed hydrOXYzine HCl (ATARAX) 25 mg tablet Indications: Panic attacks , Rash and nonspecific skin eruption Take 1 tablet by mouth every 6 hours as needed for Itching/Rash or Anxiety. 40 tablet 04/01/2020 Active Start: 07-25-2019 take 25 mg by mouth every eight hours Hydroxyzine Hcl Active 25 MG PO Q8H July 25, 2019 8:39pm Comment on above: Take 1 tablet by jean th every 6 hours as needed for Itching/Rash or Anxiety. levocetirizine dihydrochloride 5 mg oral tablet (20 sources) Histamine-1 Receptor Antagonist Start: 04-11-20 take 1 tablet by mouth once daily Levocetirizine 5 mg tablet Active 5 mg PO DAILY April 11, 2025 12:00am Start: 04-09-2023 End: 04-04-2025 take 1 tablet by mouth once daily Levocetirizine 5 mg tablet Discontinued 5 mg PO DAILY August 22, 2024 10:00am April 04, 2025 2:33pm lisinopril 40 mg oral tablet (20 sources) Angiotensin Converting Enzyme Inhibitor Start: 04-11-2025 take 1 tablet by mouth once daily Lisinopril 40 mg tablet Active 40 mg PO DAILY May 14th, 2025 12:00am Start: 08-22-2024 End: 02-26-2025 take 1 tablet by mouth once daily Lisinopril 20 mg tablet Discontinued 20 mg PO DAILY August 22, 2024 10:19am February 26, 2025 10:07am Start: 07-23-2023 End: 08-22-2024 take 5 mg by mouth once daily Lisinopril 10 mg tablet Discontinued 5 mg PO DAILY January 24, 2024 11:52am August 22, 2024 10:20am Start: 07-23-2023 End: 01-24-2024 take 5 mg by mouth once daily Lisinopril Active 5 MG P O DAILY January 24, 2024 11:52am Start: 06-09-2023 End: 07-23-2023 take 1 tablet by mouth once daily Lisinopril 10 mg tablet Discontinued 10 mg PO DAILY June 09, 2023 8:25am July 23, 2023 6:05pm Start: 11-18-2022 End: 06-09-2023 Lisinopril 40 mg tablet Disc ontinued 20 mg PO DAILY November 18, 2022 1:00am June 09, 2023 8:25am Start: 11-18-2022 End: 06-09-2023 take 20 mg by mouth once daily Lisinopril Discontinued 20 MG PO DAILY November 18, 2022 1:00am June 09, 2023 8:25am Start: 04-01-2020 take 1 tablet by jean th once daily lisinopril (ZESTRIL, PRINIVIL) 40 mg tablet Indications: Essential hypertension Take 1 tablet by mouth once daily. 90 tablet 04/01/2020 Active Start: 09-04-2018 take 40 mg by mouth once daily Lisinopril Active 40 MG PO DAILY September 04, 2018 10:40pm Start: 08-03-2017 End: 09-04-2018 take 1 tablet by mouth once daily Lisinopril 20 MG tablet Discontinued 20 mg PO DAILY August 03, 2017 12:00am September 04, 2018 10:40pm Start: 08-02-2017 End: 08-03-2017 take 2 tablets by mouth once daily Lisinopril 10 MG tablet Discontinued 20 mg PO DAILY August 02, 2017 2:02pm August 03, 2017 2:12pm Start: 08-02-2017 End: 08-03-2017 take 20 mg by mouth once daily Lisinopril Discontinued 20 MG PO DAILY August 02, 2017 2:02pm August 03, 2017 2:12pm Start: 06-07-2017 End: 08-02-2017 take 1 tablet by mouth once daily Lisinopril 10 MG tablet Discontinued 10 mg PO DAILY June 07, 2017 12:00am August 02, 2017 2:03pm Comment on above: Take 1 tablet by jean th once daily. metFORMIN hydrochloride 500 mg oral tablet (20 sources) Biguanide Start: 10-31-2022 Metformin 500 mg tablet Active 500 NMA PO TWICE A DAY October 31, 2022 1:00am Start: 07-25-2019 take 1 tablet by jean th twice daily metFORMIN (GLUCOPHAGE) 500 mg tablet Take 1 tablet by mouth twice daily. 180 tablet 1 06/07/2020 Active Comment on above: Take 1 tablet by jean th twice daily. 24 hr metoprolol succinate 25 mg extended release oral tablet (20 sources) beta-Adrenergic Lovely Start: 11-12-2024 take 1 tablet by mouth once daily Metoprolol Succinate 25 mg tablet extended release 24 hr Active 25 mg PO DAILY November 12, 2024 1:00am Start: 05-20-2023 End: 11-12-2024 take 2 tablets by mouth once daily Metoprolol Succinate 50 mg tablet extended release 24 hr Discontinued 25 mg PO DAILY May 20, 2023 10:14am November 12, 2024 11:28am Start: 10-31-2022 End: 05-20-2023 take 1 tablet by mouth once daily Metoprolol Succinate 50 mg tablet extended release 24 hr Discontinued 50 NMA PO DAILY October 31, 2022 1:00am May 20, 2023 10:15am Start: 10-31-2022 End: 05-20-2023 Metoprolol Succinate Discont inued 50 EACH PO DAILY October 31, 2022 12:00am May 20, 2023 9:15am Start: 10-31-2022 End: 05-20-2023 Metoprolol Succinate Discont inued 50 EACH PO DAILY October 31, 2022 1:00am May 20, 2023 10:15am Start: 10-31-2022 Metoprolol Suc cinate Active 50 EACH PO DAILY October 31, 2022 1:00am Start: 10-31-2022 Metoprolol Suc cinate Active 50 EACH PO DAILY October 31, 2022 12:00am Start: 04-01-2020 take 1 tablet by jean th once daily metoprolol succinate ER (TOPROL XL) 50 mg 24 hr tablet Indications: Essential hypertension Take 1 tablet by mouth once daily. 90 tablet 04/01/2020 Active Comment on above: Take 1 tablet by jean th once daily. montelukast 10 mg oral tablet (16 sources) Leukotriene Receptor Antagonist Start: 2 take 1 tablet by mouth once daily Montelukast (Singulair) 10 mg Tablet Active 10 mg PO DAILY April 09, 2023 12:00am Multivitamin preparation (1 source) Start: 2 take 1 tablet by mouth once daily Multivitamin Active 1 TABLET PO DAILY February 22, 2022 12:47pm Gerald-3 Fatty Acids (3 sources) Start: 3 take 1000 mg by mouth once daily Gerald-3 Fatty Acids Active 1000 MG PO DAILY August 24, 2023 11:00pm Start: 08-25-2023 take 1000 mg by mouth once colleen ly Gerald-3 Fatty Acids Active 1000 MG PO DAILY August 25, 2023 12:00am Gerald-3 Fatty Acids 1,000 mg capsule (3 sources) Start: 08-25-2023 take 1 capsule by mouth once daily Gerald-3 Fatty Acids 1,000 mg capsule Active 1000 mg PO DAILY August 25, 2023 12:00am omeprazole 20 mg delayed release oral capsule (1 source) Proton Pump Inhibitor Start: 02-22-2022 take 20 mg by mouth once daily Omeprazole Active 20 MG PO DAILY February 22, 2022 12:47pm ondansetron 4 mg disintegrating oral tablet (20 sources) Serotonin-3 Receptor Antagonist Start: 04-04-2025 take 1 tablet by mouth every eight hours as needed for nausea Ondansetron 4 mg tablet,disintegra ting Active 4 mg PO EVERY 8 HOURS NEEDED as needed for Nausea April 04, 2025 12:00am Start: 04-27-2024 End: 08-22-2024 take 1 tablet by mouth every six hours as needed for vomiting Ondansetron 4 mg tablet,disintegrating Discontinued 4 mg PO EVERY 6 HOURS as needed for vomiting July 11, 2024 2:11pm August 22, 2024 10:00am Start: 07-29-2023 End: 08-25-2023 take 1 tablet by mouth every eight hours as needed for nausea Ondansetron 4 mg tablet,disintegrating Discontinued 4 mg PO EVERY 8 HOURS NEEDED as needed for Nausea August 23, 2023 12:00am August 25, 2023 10:02am Start: 07-15-2020 End: 04-25-2024 take 1 tablet by mouth every six hours as needed ondansetron orally disintegrating (ZOFRAN ODT) 4 mg disintegrating tablet Take 1 tablet by mouth every 6 hours as needed for Nausea/Vomiting. 24 tablet 1 07/15/2020 04/22/2024 Discontinued Comment on above: Take 1 tablet by jean th every 6 hours as needed for Nausea/Vomiting. pantoprazole 40 mg delayed release oral tablet (20 sources) Proton Pump Inhibitor Start: 05-04-20 take 1 tablet by mouth twice daily Pantoprazole 40 mg tablet,delayed release (DR/EC) Active 40 mg PO TWICE A DAY May 04, 2023 9:28pm Start: 04-11-2023 End: 05-04-2023 take 1 tablet by mouth once daily Pantoprazole 40 mg Tablet,Delayed Release (Dr/Ec) Discontinued 40 mg PO DAILY April 11, 2023 12:00am May 04, 2023 9:28pm Start: 11-11-2015 pantoprazole D R (PROTONIX) 20 mg tablet once daily. 0 11/11/2015 Active PARoxetine hydrochloride 10 mg oral tablet (7 sources) Serotonin Reuptake Inhibitor Start: 11-18-2022 take 10 mg by mouth once daily Paroxetine Hcl Active 10 MG PO DAILY November 18, 2022 12:00am Start: 04-01-2020 take 1 tablet by jean th once daily PARoxetine (PAXIL) 40 mg tablet Indications: Mild episode of recurrent major depressive disorder (HCC) Take 1 tablet by mouth once daily. 90 tablet 04/01/2020 Active Start: 09-04-2018 take 40 mg by mouth once daily Paroxetine Hcl Active 40 MG PO DAILY September 04, 2018 10:38pm Comment on above: Take 1 tablet by jean th once daily. spironolactone 25 mg oral tablet (1 source) Aldosterone Antagonist Start: 02-24-20 21 take 25 mg by mouth once daily Spironolactone Active 25 MG PO DAILY February 23, 2021 9:16am traZODone hydrochloride 50 mg oral tablet (3 sources) Serotonin Reuptake Inhibitor Start: 04-01-20 take 1 tablet by mouth once daily at bedtime traZODone (DESYREL) 50 mg tablet Indications: Mild episode of recurrent major depressive disorder (HCC) Take 1 tablet by mouth daily at bedtime. 90 tablet 04/01/2020 Active Comment on above: Take 1 tablet by jean th daily at bedtime. Completed/Discontinued Medications Medication Drug Class(es) Dates Sig (Normalized) Sig (Original) acetaminophen 325 mg / oxyCODONE hydrochloride 5 mg oral tablet (20 sources) Opioid Agonist Start: 10-09-2024 End: 04-04-2025 Oxycodone-Acetamino phen 5-325 mg tablet Discontinued 1 {tbl} PO TWICE A DAY as needed October 09, 2024 1:00am April 04, 2025 2:34pm Start: 08-23-2023 End: 08-22-2024 Oxycodone-Acetaminophen 5-32 5 mg tablet Discontinued 1 {tbl} PO EVERY 6 HOURS NEEDED as needed for Pain 12 July 11, 2024 August 22, 2024 10:00am Start: 07-29-2023 End: 08-25-2023 Oxycodone-Acetaminophen (Per cocet) 5-325 mg tablet Discontinued 1 {tbl} PO Q8H as needed for pain 10 July 29, 2023 August 25, 2023 10:03am amoxicillin 875 mg / clavulanate 125 mg oral tablet (14 sources) Penicillin-class Antibacterial Start: 09-15-2023 End: 09-27-2023 Amoxicillin-Pot Clavulanate 875-125 mg tablet Discontinued 1 {tbl} PO TWICE A DAY September 15, 2023 12:00am September 27, 2023 3:27pm Start: 09-15-2023 End: 09-27-2023 take 1 tablet by mouth twice daily Amoxicillin-Pot Clavulanate Discontinued 1 TABLET PO TWICE A DAY September 15, 2023 12:00am September 27, 2023 3:27pm Start: 07-01-2023 End: 08-13-2023 Amoxicillin-Pot Clavulanate 875-125 mg tablet Discontinued 1 {tbl} PO Q12H 20 July 01, 2023 12:00am July 10, 2023 12:00am July 11, 2023 12:03am Start: 07-01-2023 End: 07-11-2023 take 1 tablet by mouth every twelve hours Amoxicillin-Pot Clavulanate Discontinued 1 TABLET PO Q12H 20 July 01, 2023 12:00am July 11, 2023 12:03am clindamycin 300 mg oral capsule (5 sources) Lincosamide Antibacterial Start: 09-27-2023 End: 08-22-2024 take 1 capsule by mouth three times daily Clindamycin Hcl 300 mg capsule Discontinued 300 mg PO THREE TIMES A DAY September 27, 2023 12:00am August 22, 2024 10:01am dextromethorphan hydrobromide 2 mg/ml / guaiFENesin 20 mg/ml oral solution (9 sources) Uncompetitive X-hiezxa-C-aspartat e Receptor Antagonist, Sigma-1 Agonist Start: 07-01-2023 End: 08-25-2023 take 1 mL by mouth every four hours as needed for cough Dextromethorphan- Guaifenesin 10-100 mg/5 mL liquid Discontinued 10 mL PO Q4H as needed for cough 500 July 01, 2023 12:00am August 25, 2023 10:18am Start: 07-01-2023 End: 08-25-2023 take 1 mL by mouth every four hours Dextromethorphan-Guaifenesin Discontinue d 10 ML PO Q4H 500 July 01, 2023 12:00am August 25, 2023 10:18am Start: 07-01-2023 take 1 mL by mouth every four hours Dextromethorphan-Guaifenesin Active 10 M L PO Q4H 500 July 01, 2023 12:00am diazePAM 5 mg oral tablet (3 sources) Benzodiazepine Start: 07-11-2024 End: 08-28-2024 take 1 tablet by mouth every eight hours as needed for muscle spasms Diazepam 5 mg tablet Discontinued 5 mg PO EVERY 8 HOURS as needed for Muscle Spasm July 11, 2024 12:00am August 28, 2024 1:30pm doxycycline hyclate 100 mg oral capsule (10 sources) Tetracycline-class Drug Start: 04-27-2024 End: 05-04-2024 take 1 capsule by mouth twice daily Doxycycline Hyclate 100 mg capsule Discontinued 100 mg PO TWICE A DAY 11 06April 27, 2024 12:00am May 03, 2024 12:00am May 04, 2024 12:05am Start: 10-19-2023 End: 08-22-2024 take 1 tablet by mouth twice daily Doxycycline Monohydrate 100 mg tablet Discontinued 100 mg PO TWICE A DAY October 19, 2023 1:00am August 22, 2024 10:01am Start: 04-09-2023 take 100 mg by mouth twice daily Doxycycline Monohydrate Active 100 MG PO TWICE A DAY April 09, 2023 12:00am Magnesium (9 sources) Start: 04-04-2025 End: 04-11-2025 take 1 tablet by mouth twice daily Magnesium 250 mg tablet Discontinued 250 mg PO TWICE A DAY April 04, 2025 12:00am April 11, 2025 10:18pm Start: 04-04-2025 take 1 tablet by jean th twice daily Magnesium 250 mg tablet Active 250 mg PO TWICE A DAY April 04, 2025 12:00am Start: 08-25-2023 take 1 tablet by jean th once daily Magnesium 250 mg tablet Active 250 mg PO DAILY August 25, 2023 12:00am Start: 08-25-2023 take 250 mg by mouth once isabel y Magnesium Active 250 MG PO DAILY August 24, 2023 11:00pm Start: 08-25-2023 take 250 mg by mouth once isabel y Magnesium Active 250 MG PO DAILY August 25, 2023 12:00am magnesium oxide 250 mg oral tablet (2 sources) Start: 04-11-2025 End: 04-26-2025 take 1 tablet by mouth twice daily Magnesium Oxide 250 mg magnesium tablet Discontinued 250 mg PO TWICE A DAY April 11, 2025 12:00am April 26, 2025 4:05pm meloxicam 15 mg oral tablet (3 sources) Nonsteroidal Anti-inflammatory Drug Start: 08-28-2024 End: 04-04-2025 take 1 tablet by mouth once daily as needed for pain Meloxicam 15 mg tablet Discontinued 15 mg PO daily as needed for pain August 28, 2024 12:00am April 04, 2025 2:33pm methylPREDNISolone 4 mg oral tablet (20 sources) Corticosteroid Start: 07-01-2023 End: 07-07-2023 take 1 tablet by mouth once Methylprednisolone (Medrol (Mario)) 4 mg tablets,dose pack Discontinued 4 mg PO per package directions 19 05July 01, 2023 12:00am July 06, 2023 12:00am July 07, 2023 12:03am Start: 04-09-2023 take 1 tablet by jean th once daily Methylprednisolone (Medrol) 8 mg Tablet Active 8 MG PO DAILY April 09, 2023 12:00am Start: 02-12-2023 End: 02-18-2023 take 1 tablet by mouth once Methylprednisolone (Medrol (Mario)) 4 mg tablets,dose pack Discontinued 4 mg PO per package directions 19 05February 12, 2023 12:00am February 17, 2023 12:00am February 18, 2023 12:05am phenazopyridine hydrochloride 95 mg oral tablet (6 sources) Start: 08-25-2023 End: 04-11-2025 take 1 tablet by mouth twice daily Phenazopyridine 95 mg tablet Discontinued 95 mg PO TWICE A DAY August 25, 2023 12:00am April 11, 2025 10:18pm potassium chloride 20 meq powder for oral solution (3 sources) Start: 04-04-2025 End: 04-26-2025 take 20 mEq by mouth once daily Potassium Chloride 20 mEq packet Discontinued 20 meq PO DAILY 04 02April 04, 2025 12:00am April 26, 2025 4:05pm predniSONE 10 mg oral tablet (8 sources) Start: 03-22-2024 End: 08-22-2024 take 1 tablet by mouth once daily Prednisone 10 mg tablet Discontinued 10 mg PO DAILY March 22, 2024 12:00am August 22, 2024 10:00am then 3 tablets daily x3 days, then 2 tablets daily x3 days, then 1 tablet daily x3 days Start: 07-21-2022 End: 04-22-2024 predniSONE (DELTASONE) 10 [...] tab daily for 3 days with food. raNITIdine 150 mg oral tablet (19 sources) Histamine-2 Receptor Antagonist Start: 9 End: 1 take 1 tablet by mouth twice daily Ranitidine Hcl 150 MG tablet Discontinued 150 mg PO TWICE A DAY July 25, 2019 12:00am February 23, 2021 9:16am tiZANidine 4 mg oral tablet (3 sources) Central alpha-2 Adrenergic Agonist Start: 4 End: 5 take 1 tablet by mouth twice daily as needed Tizanidine 4 mg tablet Discontinued 4 mg PO TWICE A DAY as needed August 28, 2024 12:00am April 04, 2025 2:34pm varenicline 1 mg oral tablet (4 sources) Partial Cholinergic Nicotinic Agonist Start: 4 End: 5 take 1 tablet by mouth twice daily Varenicline Tartrate (Chantix) 1 mg tablet Discontinued 1 mg PO TWICE A DAY August 22, 2024 12:00am April 04, 2025 2:34pm Start: 03-21-2024 take 1 tablet by mouth once va renicline (CHANTIX) 1 mg tablet Take 1 tablet by mouth every afternoon. 0 03/21/2024 Active Problems Active Problems Problem Classification Problem Date Documented Da te Episodic/Chronic Acute bronchitis (20 sources) Acute bronchitis; Translations: [Acute bronchitis, unspecified] Episodic Acute myocardial infarction (19 sources) Myocardial infarction; Translations: [Non-ST elevation (NSTEMI) myocardial infarction] Chronic Alcohol-related disorders (20 sources) Nondependent alcohol abuse, continuous; Translations: [Alcohol abuse, uncomplicated] Onset: 04-18-2025 08-30-2015 Chronic Alcohol-related disorders (20 sources) Alcohol use, unspecified with intoxication, unspecified; Translations: [Acute alcoholic intoxication] 09-14-2022 Episodic Anxiety disorders (2 sources) Panic attack; Translations: [Panic disorder without agoraphobia] 06-10-2021 Chronic Asthma (20 sources) Exacerbation of asthma; Translations: [Unspecified asthma with (acute) exacerbation] 08-17-2018 Chronic Cardiac dysrhythmias (20 sources) Palpitations; Translations: [Palpitations] Onset: 04-09-2025 05-20-2023 Episodic Chronic obstructive pulmonary disease and bronchiectasis (19 sources) Bronchitis; Translations: [Bronchitis, not specified as acute or chronic] 09-06-2018 Episodic Conditions associated with dizziness or vertigo (20 sources) Vertigo; Translations: [Dizziness and giddiness] 04-10-2023 Episodic Coronary atherosclerosis and other heart disease (19 sources) Acute coronary syndrome; Translations: [Acute ischemic heart disease, unspecified] Chronic Diabetes mellitus with complications (18 sources) Hyperglycemia due to diabetes mellitus; Translations: [Type 2 diabetes mellitus with hyperglycemia] 09-14-2022 Chronic Diabetes mellitus without complication (20 sources) Type 2 diabetes mellitus; Translations: [Type 2 diabetes mellitus without complications] Onset: 02-19-2016 02-19-2016 Chronic Disorders of lipid metabolism (20 sources) Hypertriglyceridemi a; Translations: [Pure hyperglyceridemia] Onset: 09-13-2024 Chronic Disorders of teeth and jaw (19 sources) Edentulous; Translations: [Complete loss of teeth, unspecified cause, unspecified class] 07-25-2019 Chronic E Codes: Fall (2 sources) Fall; Translations: [Unspecified fall, initial encounter] 04-12-2025 Episodic Essential hypertension (20 sources) Hypertensive disorder; Translations: [Essential (primary) hypertension] Onset: 10-09-2014 10-31-2014 Chronic Fluid and electrolyte disorders (20 sources) Metabolic acidosis, increased anion gap (IAG); Translations: [High anion gap metabolic acidosis] 04-10-2023 Episodic Hypertension with complications and secondary hypertension (20 sources) Hypertensive urgency ; Translations: [Hypertensive urgency] Chronic Immunizations and screening for infectious disease (6 sources) Contact with or exposure to other viral diseases 09-15-2023 Episodic Mood disorders (3 sources) Depressive disorder; Translations: [Depression] Onset: 08-15-2013 10-09-2014 Chronic Nausea and vomiting (9 sources) Nausea; Translations: [Nausea] 04-22-2024 Episodic Nonspecific chest pain (20 sources) Chest pain; Translations: [Chest pain, unspecified] 03-02-2022 Episodic Nutritional deficiencies (3 sources) Vitamin D deficiency; Translations: [Vitamin D deficiency, unspecified] Onset: 01-30-2014 10-09-2014 Chronic Other circulatory disease (20 sources) Low blood pressure; Translations: [Hypotension, unspecified] 03-22-2023 Episodic Other circulatory disease (7 sources) Hypotension, unspecified; Translations: [Hypotension, unspecified] 04-10-2023 Episodic Other congenital anomalies (3 sources) Bilateral accessory navicular bones; Translations: [Other congenital malformations of lower limb(s), including pelvic girdle] Onset: 08-31-2019 08-31-2019 Chronic Other connective tissue disease (4 sources) Plantar fasciitis of left foot; Translations: [Plantar fascial fibromatosis] 03-22-2024 Episodic Other connective tissue disease (1 source) Plantar fascial fibromatosis; Translations: [Plantar fascial fibromatosis] 03-22-2024 Episodic Other diseases of kidney and ureters (15 sources) Acute renal insufficiency; Translations: [Disorder of kidney and ureter, unspecified] 03-22-2023 Episodic Other gastrointestinal disorders (19 sources) History of pancreatitis; Translations: [Personal history of other diseases of the digestive system] 09-26-2014 Episodic Other lower respiratory disease (1 source) Wheezing; Translations: [Wheezing] 04-22-2024 Episodic Other lower respiratory disease (3 sources) Dyspnea; Translations: [Shortness of breath] 11-20-2024 Episodic Other lower respiratory disease (2 sources) History of chronic obstructive airway disease; Translations: [Personal history of other diseases of the respiratory system] 04-12-2025 Episodic Other non-traumatic joint disorders (2 sources) Hip pain; Translations: [Pain in left hip] Episodic Other nutritional; endocrine; and metabolic disorders (3 sources) Hypomagnesemia; Translations: [Hypomagnesemia] 04-04-2025 Chronic Other nutritional; endocrine; and metabolic disorders (2 sources) H/O: diabetes mellitus; Translations: [Personal history of other endocrine, nutritional and metabolic disease] 04-12-2025 Episodic Other upper respiratory disease (1 source) Congestion of nasal sinus; Translations: [Nasal congestion] 04-22-2024 Episodic Other upper respiratory infections (20 sources) Acute sinusitis; Translations: [Acute sinusitis, unspecified] 07-01-2023 Episodic Otitis media and related conditions (19 sources) Acute bilateral otitis media ; Translations: [Otitis media, unspecified, bilateral] Episodic Pancreatic disorders (not diabetes) (15 sources) Chronic pancreatitis; Translations: [Other chronic pancreatitis] 07-29-2023 Chronic Pancreatic disorders (not diabetes) (3 sources) Pancreatitis; Translations: [Acute pancreatitis without necrosis or infection, unspecified] Onset: 05-02-2025 04-26-2025 Episodic Screening and history of mental health and substance abuse codes (10 sources) High alcohol level in blood; Translations: [Finding of alcohol in blood] 05-25-2023 Episodic Spondylosis; intervertebral disc disorders; other back problems (3 sources) Inflammation of sacroiliac joint; Translations: [Sacroiliitis, not elsewhere classified] 10-09-2024 Chronic Sprains and strains (20 sources) Strain of flexor muscle of hip; Translations: [Strain of muscle, fascia and tendon of left hip, initial encounter] Episodic Substance-related disorders (20 sources) Tobacco user; Translations: [Nicotine dependence, unspecified, uncomplicated] 02-22-2022 Chronic Syncope (20 sources) Syncope and collapse; Translations: [Syncope and collapse] 07-18-2021 Episodic Unclassified (2 sources) EXAM 06-10-2021 Comment on above: EXAM Unclassified (1 source) Low back pain, unspecified; Translations: [Low back pain, unspecified] Onset: 08-28-2024 Viral infection (20 sources) Viral disease; Translations: [Viral infection, unspecified] 02-22-2016 Episodic Past or Other Problems Problem Classification Problem Date Documented Da te Episodic/Chronic Abdominal pain (20 sources) Epigastric pain; Translations: [Epigastric pain] Onset: 4 10-08-2016 Episodic Diabetes or abnormal glucose tolerance complicating ; childbirth; or the puerperium (2 sources) and type 2 diabetes mellitus; Translations: [Pre-existing type 2 diabetes mellitus, in , first trimester] Onset: 6 Resolved: 6 11-27-2016 Chronic Malaise and fatigue (2 sources) Fatigue; Translations: [Other fatigue] Onset: 4 Resolved: 6 11-27-2016 Episodic Other aftercare (2 sources) Post-discharge follow-up; Translations: [Encounter for follow-up examination after completed treatment for conditions other than malignant neoplasm] Onset: 4 Resolved: 6 11-24-2021 Episodic Other connective tissue disease (3 sources) Tendinitis of bilateral posterior tibialis muscles; Translations: [Posterior tibial tendinitis, right leg] Onset: 9 08-31-2019 Episodic Other connective tissue disease (3 sources) Tibialis posterior tendinitis ; Translations: [Posterior tibial tendinitis, unspecified leg] Onset: 0 02-13-2020 Episodic Other gastrointestinal disorders (2 sources) Irritable bowel syndrome with diarrhea; Translations: [Irritable bowel syndrome with diarrhea] Onset: 6 Resolved: 8 09-16-2018 Chronic Other lower respiratory disease (1 source) Shortness of breath; Translations: [Shortness of breath] Onset: 5 Episodic Other non-traumatic joint disorders (2 sources) Pain in elbow; Translations: [Pain in right elbow] Onset: 8 Resolved: 9 02-14-2019 Episodic Other screening for suspected conditions (not mental disorders or infectious disease) (4 sources) D-dimer above reference range; Translations: [Other specified abnormal findings of blood chemistry] Onset: 5 11-20-2024 Episodic Other skin disorders (2 sources) Eruption; Translations: [Rash and other nonspecific skin eruption] Onset: 9 Resolved: 0 06-07-2020 Episodic Other upper respiratory infections (2 sources) Sinusitis; Translations: [Chronic sinusitis, unspecified] Onset: 4 Resolved: 6 11-27-2016 Chronic Residual codes; unclassified (2 sources) Obstructive sleep apnea syndrome; Translations: [Obstructive sleep apnea (adult) (pediatric)] Onset: 4 Resolved: 8 09-16-2018 Chronic Residual codes; unclassified (3 sources) Tobacco use and exposure - finding; Translations: [Tobacco use] Onset: 3 10-31-2014 Episodic Residual codes; unclassified (17 sources) History of cardiac catheterization; Translations: [Other specified postprocedural states] Onset: 2 11-19-2022 Episodic Comment on above: LEFT MAIN: Angiograp hically normal; LEFT ANTERIOR DESCENDING ARTERY: Angiographically normal; CIRCUMFLEX ARTERY: Angiographically normal; RIGHT CORONARY ARTERY: Angiographically normal; AORTIC ROOT: Angiographically normal per cardiac cath 11/19/22 Residual codes; unclassified (2 sources) Insomnia; Translations: [Insomnia, unspecified] Onset: 3 Resolved: 8 09-16-2018 Episodic Spondylosis; intervertebral disc disorders; other back problems (10 sources) Lumbar radiculopathy; Translations: [Radiculopathy, lumbar region] Onset: 4 08-28-2024 Episodic Unclassified (18 sources) plantar fasciitis release 06-18-2022 Results Test Name Value Interpretation Reference Range Facility Bedside Glucoseon 05-02-2025 [facility] 288 mg/dL High [address] [place] [address] Comment on above: Result Comment: CHAUNCEY GEMENT OF PATIENT CARE PER NURSING PROTOCOL Performed By: #### L [id number] #### [facility] [address] [place], [address] FINGERSTICK GLU 198 mg/dL High [address] [place] [address] Comment on above: Result Comment: CHAUNCEY GEMENT OF PATIENT CARE PER NURSING PROTOCOL Performed By: #### L 500.2500, L100.0100, L501.5425, L300.8000, L501.5200, L700.6800 #### [facility] [address] [place], [address] FINGERSTICK GLU 196 mg/dL High [address] [place] [address] Comment on above: Result Comment: CHAUNCEY GEMENT OF PATIENT CARE PER NURSING PROTOCOL Performed By: #### L 500.2500, L100.0100, L501.5425, L300.8000, L501.5200, L700.6800 #### [facility] [address] [place], [address] CBC W/Diff, Automatedon 06- Absolute Lymph 1.17 X10 3/uL Normal 0.83-4.51 [facility] Comment on above: Performed By: #### L 500.2500, L100.0100, L501.5425, L300.8000, L501.5200, L700.6800 #### [facility] [address] [place], [address] Absolute Neut 3.0 X10 3/uL Normal 2.0-7.7 [facility] Comment on above: Performed By: #### L 500.2500, L100.0100, L501.5425, L300.8000, L501.5200, L700.6800 #### [facility] [address] [place], [address] Basophils/100 WBC (Bld) 0.6 % Normal 0-1 [facility] Comment on above: Performed By: #### L 500.2500, L100.0100, L501.5425, L300.8000, L501.5200, L700.6800 #### [facility] [address] [place], [address] Eosinophils/100 WBC (Bld) 3.3 % Normal 0-5 [facility] Comment on above: Performed By: #### L 500.2500, L100.0100, L501.5425, L300.8000, L501.5200, L700.6800 #### [facility] [address] [place], [address] Erythrocyte distribution width (RBC) [Ratio] 12.5 % Normal 11.6-14.6 [facility] Comment on above: Performed By: #### L 500.2500, L100.0100, L501.5425, L300.8000, L501.5200, L700.6800 #### [facility] [address] [place], [address] Hematocrit (Bld) [Volume fraction] 30.1 % Low 37-47 [facility] Comment on above: Performed By: #### L 500.2500, L100.0100, L501.5425, L300.8000, L501.5200, L700.6800 #### [facility] [address] [place], [address] Hemoglobin (Bld) [Mass/Vol] 10.4 g/dL Low 12.0-15.0 [facility] Comment on above: Performed By: #### L 500.2500, L100.0100, L501.5425, L300.8000, L501.5200, L700.6800 #### [facility] [address] [place], [address] IG% 0.600 Normal 0.0-0.9 [facility] Comment on above: Result Comment: IG% - Immature Granulocytes (promyelocytes, myelocytes and metamyelocytes) > 1% indicates that a LEFT SHIFT is Present. Performed By: #### L 500.2500, L100.0100, L501.5425, L300.8000, L501.5200, L700.6800 #### [facility] [address] [place], [address] Lymphocytes/100 WBC (Bld) 22.5 % Normal 19-41 [facility] Comment on above: Performed By: #### L 500.2500, L100.0100, L501.5425, L300.8000, L501.5200, L700.6800 #### [facility] [address] [place], [address] MCH (RBC) [Entitic mass] 36.9 pg High 27.0-32.0 [facility] Comment on above: Performed By: #### L 500.2500, L100.0100, L501.5425, L300.8000, L501.5200, L700.6800 #### [facility] [address] [place], [address] MCHC (RBC) [Mass/Vol] 34.6 g/dL Normal 32-36 [facility] Comment on above: Performed By: #### L 500.2500, L100.0100, L501.5425, L300.8000, L501.5200, L700.6800 #### [facility] [address] [place], [address] MCV (RBC) [Entitic vol] 106.7 fL High 81-99 [facility] Comment on above: Performed By: #### L 500.2500, L100.0100, L501.5425, L300.8000, L501.5200, L700.6800 #### [facility] [address] [place], [address] Monocytes/100 WBC (Bld) 15.8 % High 0-10 [facility] Comment on above: Performed By: #### L 500.2500, L100.0100, L501.5425, L300.8000, L501.5200, L700.6800 #### [facility] [address] [place], [address] Neutrophils/100 WBC (Bld) 57.2 % Normal 47-70 [facility] Comment on above: Performed By: #### L 500.2500, L100.0100, L501.5425, L300.8000, L501.5200, L700.6800 #### [facility] [address] [place], [address] Nucleated RBC (Bld) [#/Vol] 0 10*3/uL Normal 0-5 [facility] Comment on above: Performed By: #### L 500.2500, L100.0100, L501.5425, L300.8000, L501.5200, L700.6800 #### [facility] [address] [place], [address] Platelet mean volume (Bld) [Entitic vol] 10.3 fL Normal 6.2-12.0 [facility] Comment on above: Performed By: #### L 500.2500, L100.0100, L501.5425, L300.8000, L501.5200, L700.6800 #### [facility] [address] [place], [address] Platelets (Bld) [#/Vol] 247 10*3/uL Normal 150-450 [facility] Comment on above: Performed By: #### L 500.2500, L100.0100, L501.5425, L300.8000, L501.5200, L700.6800 #### [facility] [address] [place], [address] RBC (Bld) [#/Vol] 2.82 10*6/uL Low 4.2-5.4 [facility] Comment on above: Performed By: #### L 500.2500, L100.0100, L501.5425, L300.8000, L501.5200, L700.6800 #### [facility] [address] [place], [address] RDW SD 49.4 fl High 35.1-43.9 [facility] Comment on above: Performed By: #### L 500.2500, L100.0100, L501.5425, L300.8000, L501.5200, L700.6800 #### [facility] [address] [place], [address] WBC (Bld) [#/Vol] 5.2 10*3/uL Normal 4.4-11.0 [facility] Comment on above: Performed By: #### L 500.2500, L100.0100, L501.5425, L300.8000, L501.5200, L700.6800 #### [facility] [address] [place], [address] Comprehensive Metabolic Prof il 05-02-2025 Albumin [Mass/Vol] 3.1 g/dL Low 3.5-5.0 [facility] Comment on above: Performed By: #### L 500.2500, L100.0100, L501.5425, L300.8000, L501.5200, L700.6800 #### [facility] [address] [place], [address] Albumin/Globulin [Mass ratio] 1.2 {ratio} Normal 0.9-2.4 [facility] Comment on above: Performed By: #### L 500.2500, L100.0100, L501.5425, L300.8000, L501.5200, L700.6800 #### [facility] [address] [place], [address] ALK PHOS 230 U/L High 35-104 [facility] Comment on above: Performed By: #### L 500.2500, L100.0100, L501.5425, L300.8000, L501.5200, L700.6800 #### [facility] [address] [place], [address] ALT [Catalytic activity/Vol] 33 U/L Normal <=34 [facility] Comment on above: Performed By: #### L 500.2500, L100.0100, L501.5425, L300.8000, L501.5200, L700.6800 #### [facility] [address] [place], [address] AST [Catalytic activity/Vol] 40 U/L High <=31 [facility] Comment on above: Performed By: #### L 500.2500, L100.0100, L501.5425, L300.8000, L501.5200, L700.6800 #### [facility] [address] [place], [address] Bilirubin [Mass/Vol] 0.49 mg/dL Normal 0.00-1.30 [facility] Comment on above: Performed By: #### L 500.2500, L100.0100, L501.5425, L300.8000, L501.5200, L700.6800 #### [facility] [address] [place], [address] BUN/CRE 13.6 RATIO Normal 10-20 [facility] Comment on above: Performed By: #### L 500.2500, L100.0100, L501.5425, L300.8000, L501.5200, L700.6800 #### [facility] [address] [place], [address] Calcium [Mass/Vol] 8.7 mg/dL Normal 7.6-11.0 [facility] Comment on above: Performed By: #### L 500.2500, L100.0100, L501.5425, L300.8000, L501.5200, L700.6800 #### [facility] [address] [place], [address] Chloride [Moles/Vol] 95 mmol/L Low 98-108 [facility] Comment on above: Performed By: #### L 500.2500, L100.0100, L501.5425, L300.8000, L501.5200, L700.6800 #### [facility] [address] [place], [address] CO2 [Moles/Vol] 28.5 mmol/L Normal 21.0-32.0 [facility] Comment on above: Performed By: #### L 500.2500, L100.0100, L501.5425, L300.8000, L501.5200, L700.6800 #### [facility] [address] [place], [address] Creatinine [Mass/Vol] 0.52 mg/dL Low 0.70-1.20 [facility] Comment on above: Performed By: #### L 500.2500, L100.0100, L501.5425, L300.8000, L501.5200, L700.6800 #### [facility] [address] [place], [address] ECRCL 114.25 ml/min Normal 50-250 [facility] Comment on above: Performed By: #### L 500.2500, L100.0100, L501.5425, L300.8000, L501.5200, L700.6800 #### [facility] [address] [place], [address] GAP 11 Normal 5-15 [facility] Comment on above: Performed By: #### L 500.2500, L100.0100, L501.5425, L300.8000, L501.5200, L700.6800 #### [facility] [address] [place], [address] GFR/1.73 sq M.predicted among non-blacks MDRD (S/P/Bld) [Vol rate/Area] 115 mL/min/{1.73_m2} Normal >60 [facility] Comment on above: Result Comment: mL/m in/1.73m2 CKD-EPI Creatinine Equation (2020) Performed By: #### L 500.2500, L100.0100, L501.5425, L300.8000, L501.5200, L700.6800 #### [facility] [address] [place], [address] Globulin (S) [Mass/Vol] 2.7 g/dL Normal 2.2-4.2 [facility] Comment on above: Performed By: #### L 500.2500, L100.0100, L501.5425, L300.8000, L501.5200, L700.6800 #### [facility] [address] [place], [address] Glucose [Mass/Vol] 197 mg/dL High 70-99 [facility] Comment on above: Performed By: #### L 500.2500, L100.0100, L501.5425, L300.8000, L501.5200, L700.6800 #### [facility] [address] [place], [address] Potassium [Moles/Vol] 4.2 mmol/L Normal 3.3-5.1 [facility] Comment on above: Performed By: #### L 500.2500, L100.0100, L501.5425, L300.8000, L501.5200, L700.6800 #### [facility] [address] [place], [address] Sodium [Moles/Vol] 134 mmol/L Normal 133-145 [facility] Comment on above: Performed By: #### L 500.2500, L100.0100, L501.5425, L300.8000, L501.5200, L700.6800 #### [facility] [address] [place], [address] T PROT 5.8 g/dL Low 5.9-8.4 [facility] Comment on above: Performed By: #### L 500.2500, L100.0100, L501.5425, L300.8000, L501.5200, L700.6800 #### [facility] [address] [place], [address] Urea nitrogen [Mass/Vol] 7 mg/dL Normal 4-19 [facility] Comment on above: Performed By: #### L 500.2500, L100.0100, L501.5425, L300.8000, L501.5200, L700.6800 #### [facility] [address] [place], [address] Magnesiumon 05-02-2025 Magnesium [Mass/Vol] 1.2 mg/dL Low 1.5-2.2 [facility] Comment on above: Performed By: #### L 500.2500, L100.0100, L501.5425, L300.8000, L501.5200, L700.6800 #### [facility] [address] [place], [address] Phosphoruson 05-02-2025 Phosphate [Mass/Vol] 5.0 mg/dL High 2.7-4.5 [facility] Comment on above: Performed By: #### L 500.2500, L100.0100, L501.5425, L300.8000, L501.5200, L700.6800 #### [facility] [address] [place], [address] Bedside Glucoseon 05-01-2025 FINGERSTICK GLU 234 mg/dL High [address] Comment on above: Result Comment: CHAUNCEY GEMENT OF PATIENT CARE PER NURSING PROTOCOL Performed By: #### L 500.2500, L100.0100, L501.5425, L300.8000, L501.5200, L700.6800 #### [facility] [address] [place], [address] FINGERSTICK GLU 316 mg/dL High [address] [place] [address] Comment on above: Result Comment: CHAUNCEY GEMENT OF PATIENT CARE PER NURSING PROTOCOL Performed By: #### L 500.2500, L100.0100, L501.5425, L300.8000, L501.5200, L700.6800 #### [facility] [address] [place], [address] FINGERSTICK GLU 168 mg/dL High [address] Comment on above: Result Comment: CHAUNCEY GEMENT OF PATIENT CARE PER NURSING PROTOCOL Performed By: #### L 500.2500, L100.0100, L501.5425, L300.8000, L501.5200, L700.6800 #### [facility] [address] [place], [address] Liver Profileon 05-01-2025 Albumin [Mass/Vol] 3.0 g/dL Low 3.5-5.0 [facility] Comment on above: Performed By: #### L 501.4020 #### [facility] [address] [place], [address] ALK PHOS 166 U/L High 35-104 [facility] Comment on above: Performed By: #### L 501.4020 #### [facility] [address] [place], [address] ALT [Catalytic activity/Vol] 39 U/L High <=34 [facility] Comment on above: Performed By: #### L 501.4020 #### [facility] [address] [place], [address] AST [Catalytic activity/Vol] 73 U/L High <=31 [facility] Comment on above: Performed By: #### L 501.4020 #### [facility] [address] [place], [address] Bilirubin [Mass/Vol] 0.59 mg/dL Normal 0.00-1.30 [facility] Comment on above: Performed By: #### L 501.4020 #### [facility] [address] [place], [address] Bilirubin.direct [Mass/Vol] 0.32 mg/dL High 0.00-0.30 [facility] Comment on above: Performed By: #### L 501.4020 #### [facility] [address] [place], [address] Globulin (S) [Mass/Vol] 2.7 g/dL Normal 2.2-4.2 [facility] Comment on above: Performed By: #### L 501.4020 #### [facility] [address] [place], [address] T PROT 5.7 g/dL Low 5.9-8.4 [facility] Comment on above: Performed By: #### L 501.4020 #### [facility] [address] [place], [address] Phosphoruson 05-01-2025 Phosphate [Mass/Vol] 5.1 mg/dL High 2.7-4.5 [facility] Comment on above: Performed By: #### L 500.2500, L100.0100, L501.5425, L300.8000, L501.5200, L700.6800 #### [facility] [address] [place], [address] Basic Metabolic Profile (BMP )on 04-30-2025 BUN/CRE UNABLE TO CALCULATE Low 10-20 [facility] Comment on above: Performed By: #### L 501.4020 #### [facility] [address] [place], [address] Calcium [Mass/Vol] 8.5 mg/dL Normal 7.6-11.0 [facility] Comment on above: Performed By: #### L 501.4020 #### [facility] [address] [place], [address] Chloride [Moles/Vol] 98 mmol/L Normal 98-108 [facility] Comment on above: Performed By: #### L 501.4020 #### [facility] [address] [place], [address] CO2 [Moles/Vol] 28.1 mmol/L Normal 21.0-32.0 [facility] Comment on above: Performed By: #### L 501.4020 #### [facility] [address] [place], [address] Creatinine [Mass/Vol] 0.41 mg/dL Low 0.70-1.20 [facility] Comment on above: Performed By: #### L 501.4020 #### [facility] [address] [place], [address] ECRCL 144.90 ml/min Normal 50-250 [facility] Comment on above: Performed By: #### L 501.4020 #### [facility] [address] [place], [address] GAP 13 Normal 5-15 [facility] Comment on above: Performed By: #### L 501.4020 #### [facility] [address] [place], [address] GFR/1.73 sq M.predicted among non-blacks MDRD (S/P/Bld) [Vol rate/Area] 121 mL/min/{1.73_m2} Normal >60 [facility] Comment on above: Result Comment: mL/m in/1.73m2 CKD-EPI Creatinine Equation (2020) Performed By: #### L 501.4020 #### [facility] [address] [place], [address] Glucose [Mass/Vol] 124 mg/dL High 70-99 [facility] Comment on above: Performed By: #### L 501.4020 #### [facility] [address] [place], [address] Potassium [Moles/Vol] 2.7 mmol/L Invalid Interpretation Code 3.3-5.1 [facility] Comment on above: Result Comment: Crit ical Result(s) Called at: by:??Results read back by same. Performed By: #### L 501.4020 #### [facility] [address] [place], [address] Sodium [Moles/Vol] 139 mmol/L Normal 133-145 [facility] Comment on above: Performed By: #### L 501.4020 #### [facility] [address] [place], [address] Urea nitrogen [Mass/Vol] mg/dL Low 4-19 [facility] Comment on above: Performed By: #### L 501.4020 #### [facility] [address] [place], [address] Bedside Glucoseon 04-30-2025 FINGERSTICK GLU 147 mg/dL High 74-106 [facility] Comment on above: Result Comment: CHAUNCEY GEMENT OF PATIENT CARE PER NURSING PROTOCOL Performed By: #### L 500.2500, L100.0100, L501.5425, L300.8000, L501.5200, L700.6800 #### [facility] [address] [place], [address] FINGERSTICK GLU 230 mg/dL High 74-106 [facility] Comment on above: Result Comment: CHAUNCEY GEMENT OF PATIENT CARE PER NURSING PROTOCOL Performed By: #### L 500.2500, L100.0100, L501.5425, L300.8000, L501.5200, L700.6800 #### [facility] [address] [place], [address] FINGERSTICK GLU 149 mg/dL High 74-106 [facility] Comment on above: Result Comment: CHAUNCEY GEMENT OF PATIENT CARE PER NURSING PROTOCOL Performed By: #### L 500.2500, L100.0100, L501.5425, L300.8000, L501.5200, L700.6800 #### [facility] [address] [place], [address] CBC W/Diff, Automatedon 06-0 Absolute Lymph 1.39 X10 3/uL Normal 0.83-4.51 [facility] Comment on above: Performed By: #### L 501.4020 #### [facility] [address] [place], [address] Absolute Neut 3.6 X10 3/uL Normal 2.0-7.7 [facility] Comment on above: Performed By: #### L 501.4020 #### [facility] [address] [place], [address] Basophils/100 WBC (Bld) 0.5 % Normal 0-1 [facility] Comment on above: Performed By: #### L 501.4020 #### [facility] [address] [place], [address] Eosinophils/100 WBC (Bld) 2.0 % Normal 0-5 [facility] Comment on above: Performed By: #### L 501.4020 #### [facility] [address] [place], [address] Erythrocyte distribution width (RBC) [Ratio] 12.6 % Normal 11.6-14.6 [facility] Comment on above: Performed By: #### L 501.4020 #### [facility] [address] [place], [address] Hematocrit (Bld) [Volume fraction] 29.7 % Low 37-47 [facility] Comment on above: Performed By: #### L 501.4020 #### [facility] [address] [place], [address] Hemoglobin (Bld) [Mass/Vol] 10.3 g/dL Low 12.0-15.0 [facility] Comment on above: Performed By: #### L 501.4020 #### [facility] [address] [place], [address] IG% 0.500 Normal 0.0-0.9 [facility] Comment on above: Result Comment: IG% - Immature Granulocytes (promyelocytes, myelocytes and metamyelocytes) > 1% indicates that a LEFT SHIFT is Present. Performed By: #### L 501.4020 #### [facility] [address] [place], [address] Lymphocytes/100 WBC (Bld) 23.4 % Normal 19-41 [facility] Comment on above: Performed By: #### L 501.4020 #### [facility] [address] [place], [address] MCH (RBC) [Entitic mass] 36.7 pg High 27.0-32.0 [facility] Comment on above: Performed By: #### L 501.4020 #### [facility] [address] [place], [address] MCHC (RBC) [Mass/Vol] 34.7 g/dL Normal 32-36 [facility] Comment on above: Performed By: #### L 501.4020 #### [facility] [address] [place], [address] MCV (RBC) [Entitic vol] 105.7 fL High 81-99 [facility] Comment on above: Performed By: #### L 501.4020 #### [facility] [address] [place], [address] Monocytes/100 WBC (Bld) 13.8 % High 0-10 [facility] Comment on above: Performed By: #### L 501.4020 #### [facility] [address] [place], [address] Neutrophils/100 WBC (Bld) 59.8 % Normal 47-70 [facility] Comment on above: Performed By: #### L 501.4020 #### [facility] [address] [place], [address] Nucleated RBC (Bld) [#/Vol] 0 10*3/uL Normal 0-5 [facility] Comment on above: Performed By: #### L 501.4020 #### [facility] [address] [place], [address] Platelet mean volume (Bld) [Entitic vol] 10.4 fL Normal 6.2-12.0 [facility] Comment on above: Performed By: #### L 501.4020 #### [facility] [address] [place], [address] Platelets (Bld) [#/Vol] 145 10*3/uL Low 150-450 [facility] Comment on above: Performed By: #### L 501.4020 #### [facility] [address] [place], [address] RBC (Bld) [#/Vol] 2.81 10*6/uL Low 4.2-5.4 [facility] Comment on above: Performed By: #### L 501.4020 #### [facility] [address] [place], [address] RDW SD 49.7 fl High 35.1-43.9 [facility] Comment on above: Performed By: #### L 501.4020 #### [facility] [address] [place], [address] WBC (Bld) [#/Vol] 6.0 10*3/uL Normal 4.4-11.0 [facility] Comment on above: Performed By: #### L 501.4020 #### [facility] [address] [place], [address] Liver Profileon 04-30-2025 Albumin [Mass/Vol] 3.2 g/dL Low 3.5-5.0 [facility] Comment on above: Performed By: #### L 501.4020 #### [facility] [address] [place], [address] ALK PHOS 98 U/L Normal 35-104 [facility] Comment on above: Performed By: #### L 501.4020 #### [facility] [address] [place], [address] ALT [Catalytic activity/Vol] 32 U/L Normal <=34 [facility] Comment on above: Performed By: #### L 501.4020 #### [facility] [address] [place], [address] AST [Catalytic activity/Vol] 39 U/L High <=31 [facility] Comment on above: Performed By: #### L 501.4020 #### [facility] [address] [place], [address] Bilirubin [Mass/Vol] 0.67 mg/dL Normal 0.00-1.30 [facility] Comment on above: Performed By: #### L 501.4020 #### [facility] [address] [place], [address] Bilirubin.direct [Mass/Vol] 0.41 mg/dL High 0.00-0.30 [facility] Comment on above: Performed By: #### L 501.4020 #### [facility] [address] [place], [address] Globulin (S) [Mass/Vol] 2.6 g/dL Normal 2.2-4.2 [facility] Comment on above: Performed By: #### L 501.4020 #### [facility] [address] [place], [address] T PROT 5.9 g/dL Normal 5.9-8.4 [facility] Comment on above: Performed By: #### L 501.4020 #### [facility] [address] [place], [address] Magnesiumon 04-30-2025 Magnesium [Mass/Vol] 1.5 mg/dL Normal 1.5-2.2 [facility] Comment on above: Performed By: #### L 500.2500, L100.0100, L501.5425, L300.8000, L501.5200, L700.6800 #### [facility] [address] [place], [address] Basic Metabolic Profile (BMP )on 04-29-2025 BUN/CRE UNABLE TO CALCULATE Low 10-20 [facility] Comment on above: Performed By: #### L 501.4020 #### [facility] [address] [place], [address] Calcium [Mass/Vol] 8.2 mg/dL Normal 7.6-11.0 [facility] Comment on above: Performed By: #### L 501.4020 #### [facility] [address] [place], [address] Chloride [Moles/Vol] 103 mmol/L Normal 98-108 [facility] Comment on above: Performed By: #### L 501.4020 #### [facility] [address] [place], [address] CO2 [Moles/Vol] 26.0 mmol/L Normal 21.0-32.0 [facility] Comment on above: Performed By: #### L 501.4020 #### [facility] [address] [place], [address] Creatinine [Mass/Vol] 0.40 mg/dL Low 0.70-1.20 [facility] Comment on above: Performed By: #### L 501.4020 #### [facility] [address] [place], [address] ECRCL 148.53 ml/min Normal 50-250 [facility] Comment on above: Performed By: #### L 501.4020 #### [facility] [address] [place], [address] GAP 11 Normal 5-15 [facility] Comment on above: Performed By: #### L 501.4020 #### [facility] [address] [place], [address] GFR/1.73 sq M.predicted among non-blacks MDRD (S/P/Bld) [Vol rate/Area] 122 mL/min/{1.73_m2} Normal >60 [facility] Comment on above: Result Comment: mL/m in/1.73m2 CKD-EPI Creatinine Equation (2020) Performed By: #### L 501.4020 #### [facility] [address] [place], [address] Glucose [Mass/Vol] 126 mg/dL High 70-99 [facility] Comment on above: Performed By: #### L 501.4020 #### [facility] [address] [place], [address] Potassium [Moles/Vol] 2.8 mmol/L Low 3.3-5.1 [facility] Comment on above: Performed By: #### L 501.4020 #### [facility] [address] [place], [address] Sodium [Moles/Vol] 140 mmol/L Normal 133-145 [facility] Comment on above: Performed By: #### L 501.4020 #### [facility] [address] [place], [address] Urea nitrogen [Mass/Vol] mg/dL Low 4-19 [facility] Comment on above: Performed By: #### L 501.4020 #### [facility] [address] [place], [address] Bedside Glucoseon 04-29-2025 FINGERSTICK GLU 187 mg/dL High 74-106 [facility] Comment on above: Result Comment: CHAUNCEY RIZO OF PATIENT CARE PER NURSING PROTOCOL Performed By: #### L 500.2500, L100.0100, L501.5425, L300.8000, L501.5200, L700.6800 #### [facility] [address] [place], [address] FINGERSTICK GLU 121 mg/dL High 74-106 [facility] Comment on above: Result Comment: CHAUNCEY GEMENT OF PATIENT CARE PER NURSING PROTOCOL Performed By: #### L 501.4020 #### [facility] [address] [place], [address] FINGERSTICK GLU 218 mg/dL High 74-106 [facility] Comment on above: Result Comment: CHAUNCEY GEMENT OF PATIENT CARE PER NURSING PROTOCOL Performed By: #### L 500.2500, L100.0100, L501.5425, L300.8000, L501.5200, L700.6800 #### [facility] [address] [place], [address] FINGERSTICK GLU 132 mg/dL High 74-106 [facility] Comment on above: Result Comment: CHAUNCEY GEMENT OF PATIENT CARE PER NURSING PROTOCOL Performed By: #### L 501.4020 #### [facility] [address] [place], [address] CBC W/Diff, Automatedon 06-0 -2024 Absolute Lymph 1.02 X10 3/uL Normal 0.83-4.51 [facility] Comment on above: Performed By: #### L 501.4020 #### [facility] [address] [place], [address] Absolute Neut 5.3 X10 3/uL Normal 2.0-7.7 [facility] Comment on above: Performed By: #### L 501.4020 #### [facility] [address] [place], [address] Basophils/100 WBC (Bld) 0.4 % Normal 0-1 [facility] Comment on above: Performed By: #### L 501.4020 #### [facility] [address] [place], [address] Eosinophils/100 WBC (Bld) 1.1 % Normal 0-5 [facility] Comment on above: Performed By: #### L 501.4020 #### [facility] [address] [place], [address] Erythrocyte distribution width (RBC) [Ratio] 12.2 % Normal 11.6-14.6 [facility] Comment on above: Performed By: #### L 501.4020 #### [facility] [address] [place], [address] Hematocrit (Bld) [Volume fraction] 28.7 % Low 37-47 [facility] Comment on above: Performed By: #### L 501.4020 #### [facility] [address] [place], [address] Hemoglobin (Bld) [Mass/Vol] 9.9 g/dL Low 12.0-15.0 [facility] Comment on above: Performed By: #### L 501.4020 #### [facility] [address] [place], [address] IG% 0.600 Normal 0.0-0.9 [facility] Comment on above: Result Comment: IG% - Immature Granulocytes (promyelocytes, myelocytes and metamyelocytes) > 1% indicates that a LEFT SHIFT is Present. Performed By: #### L 501.4020 #### [facility] [address] [place], [address] Lymphocytes/100 WBC (Bld) 14.1 % Low 19-41 [facility] Comment on above: Performed By: #### L 501.4020 #### [facility] [address] [place], [address] MCH (RBC) [Entitic mass] 36.5 pg High 27.0-32.0 [facility] Comment on above: Performed By: #### L 501.4020 #### [facility] [address] [place], [address] MCHC (RBC) [Mass/Vol] 34.5 g/dL Normal 32-36 [facility] Comment on above: Performed By: #### L 501.4020 #### [facility] [address] [place], [address] MCV (RBC) [Entitic vol] 105.9 fL High 81-99 [facility] Comment on above: Performed By: #### L 501.4020 #### [facility] [address] [place], [address] Monocytes/100 WBC (Bld) 10.9 % High 0-10 [facility] Comment on above: Performed By: #### L 501.4020 #### [facility] [address] [place], [address] Neutrophils/100 WBC (Bld) 72.9 % High 47-70 [facility] Comment on above: Performed By: #### L 501.4020 #### [facility] [address] [place], [address] Nucleated RBC (Bld) [#/Vol] 0 10*3/uL Normal 0-5 [facility] Comment on above: Performed By: #### L 501.4020 #### [facility] [address] [place], [address] Platelet mean volume (Bld) [Entitic vol] 10.5 fL Normal 6.2-12.0 [facility] Comment on above: Performed By: #### L 501.4020 #### [facility] [address] [place], [address] Platelets (Bld) [#/Vol] 110 10*3/uL Low 150-450 [facility] Comment on above: Performed By: #### L 501.4020 #### [facility] [address] [place], [address] RBC (Bld) [#/Vol] 2.71 10*6/uL Low 4.2-5.4 [facility] Comment on above: Performed By: #### L 501.4020 #### [facility] [address] [place], [address] RDW SD 47.6 fl High 35.1-43.9 [facility] Comment on above: Performed By: #### L 501.4020 #### [facility] [address] [place], [address] WBC (Bld) [#/Vol] 7.2 10*3/uL Normal 4.4-11.0 [facility] Comment on above: Performed By: #### L 501.4020 #### [facility] [address] [place], [address] Liver Profileon 04-29-2025 Albumin [Mass/Vol] 3.2 g/dL Low 3.5-5.0 [facility] Comment on above: Performed By: #### L 501.4020 #### [facility] [address] [place], [address] ALK PHOS 108 U/L High 35-104 [facility] Comment on above: Performed By: #### L 501.4020 #### [facility] [address] [place], [address] ALT [Catalytic activity/Vol] 37 U/L High <=34 [facility] Comment on above: Performed By: #### L 501.4020 #### [facility] [address] [place], [address] AST [Catalytic activity/Vol] 56 U/L High <=31 [facility] Comment on above: Performed By: #### L 501.4020 #### [facility] [address] [place], [address] Bilirubin [Mass/Vol] 0.71 mg/dL Normal 0.00-1.30 [facility] Comment on above: Performed By: #### L 501.4020 #### [facility] [address] [place], [address] Bilirubin.direct [Mass/Vol] 0.43 mg/dL High 0.00-0.30 [facility] Comment on above: Performed By: #### L 501.4020 #### [facility] [address] [place], [address] Globulin (S) [Mass/Vol] 2.4 g/dL Normal 2.2-4.2 [facility] Comment on above: Performed By: #### L 501.4020 #### [facility] [address] [place], [address] T PROT 5.6 g/dL Low 5.9-8.4 [facility] Comment on above: Performed By: #### L 501.4020 #### [facility] [address] [place], [address] Magnesiumon 04-29-2025 Magnesium [Mass/Vol] 1.5 mg/dL Normal 1.5-2.2 [facility] Comment on above: Performed By: #### L 501.4020 #### [facility] [address] [place], [address] Phosphoruson 04-29-2025 Phosphate [Mass/Vol] 2.0 mg/dL Low 2.7-4.5 [facility] Comment on above: Performed By: #### L 500.2500, L100.0100, L501.5425, L300.8000, L501.5200, L700.6800 #### [facility] [address] [place], [address] Basic Metabolic Profile (BMP )on 04-28-2025 BUN/CRE 6.9 RATIO Low 10-20 [facility] Comment on above: Performed By: #### L 500.2500, L100.0100, L501.5425, L300.8000, L501.5200, L700.6800 #### [facility] [address] [place], [address] Calcium [Mass/Vol] 8.3 mg/dL Normal 7.6-11.0 [facility] Comment on above: Performed By: #### L 500.2500, L100.0100, L501.5425, L300.8000, L501.5200, L700.6800 #### [facility] [address] [place], [address] Chloride [Moles/Vol] 100 mmol/L Normal 98-108 [facility] Comment on above: Performed By: #### L 500.2500, L100.0100, L501.5425, L300.8000, L501.5200, L700.6800 #### [facility] [address] [place], [address] CO2 [Moles/Vol] 24.9 mmol/L Normal 21.0-32.0 [facility] Comment on above: Performed By: #### L 500.2500, L100.0100, L501.5425, L300.8000, L501.5200, L700.6800 #### [facility] [address] [place], [address] Creatinine [Mass/Vol] 0.50 mg/dL Low 0.70-1.20 [facility] Comment on above: Performed By: #### L 500.2500, L100.0100, L501.5425, L300.8000, L501.5200, L700.6800 #### [facility] [address] [place], [address] ECRCL 118.82 ml/min Normal 50-250 [facility] Comment on above: Performed By: #### L 500.2500, L100.0100, L501.5425, L300.8000, L501.5200, L700.6800 #### [facility] [address] [place], [address] GAP 12 Normal 5-15 [facility] Comment on above: Performed By: #### L 500.2500, L100.0100, L501.5425, L300.8000, L501.5200, L700.6800 #### [facility] [address] [place], [address] GFR/1.73 sq M.predicted among non-blacks MDRD (S/P/Bld) [Vol rate/Area] 115 mL/min/{1.73_m2} Normal >60 [facility] Comment on above: Result Comment: mL/m in/1.73m2 CKD-EPI Creatinine Equation (2020) Performed By: #### L 500.2500, L100.0100, L501.5425, L300.8000, L501.5200, L700.6800 #### [facility] [address] [place], [address] Glucose [Mass/Vol] 103 mg/dL High 70-99 [facility] [facility] Comment on above: Performed By: #### L 500.2500, L100.0100, L501.5425, L300.8000, L501.5200, L700.6800 #### [facility] [address] [place], [address] Potassium [Moles/Vol] 3.2 mmol/L Low 3.3-5.1 [facility] Comment on above: Performed By: #### L 500.2500, L100.0100, L501.5425, L300.8000, L501.5200, L700.6800 #### [facility] [address] [place], [address] Sodium [Moles/Vol] 137 mmol/L Normal 133-145 [facility] Comment on above: Performed By: #### L 500.2500, L100.0100, L501.5425, L300.8000, L501.5200, L700.6800 #### [facility] [address] [place], [address] Urea nitrogen [Mass/Vol] 3 mg/dL Low 4-19 [facility] Comment on above: Performed By: #### L 500.2500, L100.0100, L501.5425, L300.8000, L501.5200, L700.6800 #### [facility] [address] [place], [address] Bedside Glucoseon 04-28-2025 FINGERSTICK GLU 140 mg/dL High 74-106 [facility] Comment on above: Result Comment: CHAUNCEY GEMENT OF PATIENT CARE PER NURSING PROTOCOL Performed By: #### L 501.4020 #### [facility] [address] [place], [address] FINGERSTICK GLU 181 mg/dL High 74-106 [facility] Comment on above: Result Comment: CHAUNCEY GEMENT OF PATIENT CARE PER NURSING PROTOCOL Performed By: #### L 500.2500, L100.0100, L501.5425, L300.8000, L501.5200, L700.6800 #### [facility] [address] [place], [address] FINGERSTICK GLU 104 mg/dL Normal 74-106 [facility] Comment on above: Result Comment: CHAUNCEY GEMENT OF PATIENT CARE PER NURSING PROTOCOL Performed By: #### L 500.2500, L100.0100, L501.5425, L300.8000, L501.5200, L700.6800 #### [facility] [address] [place], [address] CBC W/Diff, Automatedon 05- Absolute Lymph 0.95 X10 3/uL Normal 0.83-4.51 [facility] Comment on above: Performed By: #### L 500.2500, L100.0100, L501.5425, L300.8000, L501.5200, L700.6800 #### [facility] [address] [place], [address] Absolute Neut 5.9 X10 3/uL Normal 2.0-7.7 [facility] Comment on above: Performed By: #### L 500.2500, L100.0100, L501.5425, L300.8000, L501.5200, L700.6800 #### [facility] [address] [place], [address] Basophils/100 WBC (Bld) 0.3 % Normal 0-1 [facility] Comment on above: Performed By: #### L 500.2500, L100.0100, L501.5425, L300.8000, L501.5200, L700.6800 #### [facility] [address] [place], [address] Eosinophils/100 WBC (Bld) 0.8 % Normal 0-5 [facility] Comment on above: Performed By: #### L 500.2500, L100.0100, L501.5425, L300.8000, L501.5200, L700.6800 #### [facility] [address] [place], [address] Erythrocyte distribution width (RBC) [Ratio] 12.2 % Normal 11.6-14.6 [facility] Comment on above: Performed By: #### L 500.2500, L100.0100, L501.5425, L300.8000, L501.5200, L700.6800 #### [facility] [address] [place], [address] Hematocrit (Bld) [Volume fraction] 34.3 % Low 37-47 [facility] Comment on above: Performed By: #### L 500.2500, L100.0100, L501.5425, L300.8000, L501.5200, L700.6800 #### [facility] [address] [place], [address] Hemoglobin (Bld) [Mass/Vol] 11.6 g/dL Low 12.0-15.0 [facility] Comment on above: Performed By: #### L 500.2500, L100.0100, L501.5425, L300.8000, L501.5200, L700.6800 #### [facility] [address] [place], [address] IG% 0.400 Normal 0.0-0.9 [facility] Comment on above: Result Comment: IG% - Immature Granulocytes (promyelocytes, myelocytes and metamyelocytes) > 1% indicates that a LEFT SHIFT is Present. Performed By: #### L 500.2500, L100.0100, L501.5425, L300.8000, L501.5200, L700.6800 #### [facility] [address] [place], [address] Lymphocytes/100 WBC (Bld) 12.5 % Low 19-41 [facility] Comment on above: Performed By: #### L 500.2500, L100.0100, L501.5425, L300.8000, L501.5200, L700.6800 #### [facility] [address] [place], [address] MCH (RBC) [Entitic mass] 36.4 pg High 27.0-32.0 [facility] Comment on above: Performed By: #### L 500.2500, L100.0100, L501.5425, L300.8000, L501.5200, L700.6800 #### [facility] [address] [place], [address] MCHC (RBC) [Mass/Vol] 33.8 g/dL Normal 32-36 [facility] Comment on above: Performed By: #### L 500.2500, L100.0100, L501.5425, L300.8000, L501.5200, L700.6800 #### [facility] [address] [place], [address] MCV (RBC) [Entitic vol] 107.5 fL High 81-99 [facility] Comment on above: Performed By: #### L 500.2500, L100.0100, L501.5425, L300.8000, L501.5200, L700.6800 #### [facility] [address] [place], [address] Monocytes/100 WBC (Bld) 8.0 % Normal 0-10 [facility] Comment on above: Performed By: #### L 500.2500, L100.0100, L501.5425, L300.8000, L501.5200, L700.6800 #### [facility] [address] [place], [address] Neutrophils/100 WBC (Bld) 78.0 % High 47-70 [facility] Comment on above: Performed By: #### L 500.2500, L100.0100, L501.5425, L300.8000, L501.5200, L700.6800 #### [facility] [address] [place], [address] Nucleated RBC (Bld) [#/Vol] 0 10*3/uL Normal 0-5 [facility] Comment on above: Performed By: #### L 500.2500, L100.0100, L501.5425, L300.8000, L501.5200, L700.6800 #### [facility] [address] [place], [address] Platelet mean volume (Bld) [Entitic vol] 10.3 fL Normal 6.2-12.0 [facility] Comment on above: Performed By: #### L 500.2500, L100.0100, L501.5425, L300.8000, L501.5200, L700.6800 #### [facility] [address] [place], [address] Platelets (Bld) [#/Vol] 119 10*3/uL Low 150-450 [facility] Comment on above: Performed By: #### L 500.2500, L100.0100, L501.5425, L300.8000, L501.5200, L700.6800 #### [facility] [address] [place], [address] RBC (Bld) [#/Vol] 3.19 10*6/uL Low 4.2-5.4 [facility] Comment on above: Performed By: #### L 500.2500, L100.0100, L501.5425, L300.8000, L501.5200, L700.6800 #### [facility] [address] [place], [address] RDW SD 48.2 fl High 35.1-43.9 [facility] Comment on above: Performed By: #### L 500.2500, L100.0100, L501.5425, L300.8000, L501.5200, L700.6800 #### [facility] [address] [place], [address] WBC (Bld) [#/Vol] 7.6 10*3/uL Normal 4.4-11.0 [facility] Comment on above: Performed By: #### L 500.2500, L100.0100, L501.5425, L300.8000, L501.5200, L700.6800 #### [facility] [address] [place], [address] Lipaseon 04-28-2025 Lipase [Catalytic activity/Vol] 533 U/L High 13-75 [facility] Comment on above: Result Comment: Lucie schultz note: LIPASE revised reference range effective 23. New Lipase methodology. Expected to produce lower values than the previous assay method. NEW Reference Range: 13 - 75 U/L Performed By: #### L 500.2500, L100.0100, L501.5425, L300.8000, L501.5200, L700.6800 #### [facility] [address] [place], [address] Liver Profileon 04-28-2025 Albumin [Mass/Vol] 3.7 g/dL Normal 3.5-5.0 [facility] Comment on above: Performed By: #### L 500.2500, L100.0100, L501.5425, L300.8000, L501.5200, L700.6800 #### [facility] [address] [place], [address] ALK PHOS 158 U/L High 35-104 [facility] Comment on above: Performed By: #### L 500.2500, L100.0100, L501.5425, L300.8000, L501.5200, L700.6800 #### [facility] [address] [place], [address] ALT [Catalytic activity/Vol] 72 U/L High <=34 [facility] Comment on above: Performed By: #### L 500.2500, L100.0100, L501.5425, L300.8000, L501.5200, L700.6800 #### [facility] [address] [place], [address] AST [Catalytic activity/Vol] 265 U/L High <=31 [facility] Comment on above: Performed By: #### L 500.2500, L100.0100, L501.5425, L300.8000, L501.5200, L700.6800 #### [facility] [address] [place], [address] Bilirubin [Mass/Vol] 1.26 mg/dL Normal 0.00-1.30 [facility] Comment on above: Performed By: #### L 500.2500, L100.0100, L501.5425, L300.8000, L501.5200, L700.6800 #### [facility] [address] [place], [address] Bilirubin.direct [Mass/Vol] 0.79 mg/dL High 0.00-0.30 [facility] Comment on above: Performed By: #### L 500.2500, L100.0100, L501.5425, L300.8000, L501.5200, L700.6800 #### [facility] [address] [place], [address] Globulin (S) [Mass/Vol] 2.6 g/dL Normal 2.2-4.2 [facility] Comment on above: Performed By: #### L 500.2500, L100.0100, L501.5425, L300.8000, L501.5200, L700.6800 #### [facility] [address] [place], [address] T PROT 6.3 g/dL Normal 5.9-8.4 [facility] Comment on above: Performed By: #### L 500.2500, L100.0100, L501.5425, L300.8000, L501.5200, L700.6800 #### [facility] [address] [place], [address] Magnesiumon 04-28-2025 Magnesium [Mass/Vol] 1.5 mg/dL Normal 1.5-2.2 [facility] Comment on above: Performed By: #### L 500.2500, L100.0100, L501.5425, L300.8000, L501.5200, L700.6800 #### [facility] [address] [place], [address] Phosphoruson 04-28-2025 Phosphate [Mass/Vol] 1.5 mg/dL Low 2.7-4.5 [facility] Comment on above: Performed By: #### L 500.2500, L100.0100, L501.5425, L300.8000, L501.5200, L700.6800 #### [facility] [address] [place], [address] Basic Metabolic Profile (BMP )on 04-27-2025 BUN/CRE 9.1 RATIO Low 10-20 [facility] Comment on above: Performed By: #### L 500.2500, L100.0100, L501.5425, L300.8000, L501.5200, L700.6800 #### [facility] [address] [place], [address] Calcium [Mass/Vol] 8.0 mg/dL Normal 7.6-11.0 [facility] Comment on above: Performed By: #### L 500.2500, L100.0100, L501.5425, L300.8000, L501.5200, L700.6800 #### [facility] [address] [place], [address] Chloride [Moles/Vol] 96 mmol/L Low 98-108 [facility] Comment on above: Performed By: #### L 500.2500, L100.0100, L501.5425, L300.8000, L501.5200, L700.6800 #### [facility] [address] [place], [address] CO2 [Moles/Vol] 16.0 mmol/L Low 21.0-32.0 [facility] Comment on above: Performed By: #### L 500.2500, L100.0100, L501.5425, L300.8000, L501.5200, L700.6800 #### [facility] [address] [place], [address] Creatinine [Mass/Vol] 0.69 mg/dL Low 0.70-1.20 [facility] Comment on above: Performed By: #### L 500.2500, L100.0100, L501.5425, L300.8000, L501.5200, L700.6800 #### [facility] [address] [place], [address] ECRCL 86.10 ml/min Normal 50-250 [facility] Comment on above: Performed By: #### L 500.2500, L100.0100, L501.5425, L300.8000, L501.5200, L700.6800 #### [facility] [address] [place], [address] GAP 22 High 5-15 [facility] Comment on above: Performed By: #### L 500.2500, L100.0100, L501.5425, L300.8000, L501.5200, L700.6800 #### [facility] [address] [place], [address] GFR/1.73 sq M.predicted among non-blacks MDRD (S/P/Bld) [Vol rate/Area] 107 mL/min/{1.73_m2} Normal >60 [facility] Comment on above: Result Comment: mL/m in/1.73m2 CKD-EPI Creatinine Equation (2020) Performed By: #### L 500.2500, L100.0100, L501.5425, L300.8000, L501.5200, L700.6800 #### [facility] [address] [place], [address] Glucose [Mass/Vol] 132 mg/dL High 70-99 [facility] Comment on above: Performed By: #### L 500.2500, L100.0100, L501.5425, L300.8000, L501.5200, L700.6800 #### [facility] [address] [place], [address] Potassium [Moles/Vol] 3.8 mmol/L Normal 3.3-5.1 [facility] Comment on above: Performed By: #### L 500.2500, L100.0100, L501.5425, L300.8000, L501.5200, L700.6800 #### [facility] [address] [place], [address] Sodium [Moles/Vol] 134 mmol/L Normal 133-145 [facility] Comment on above: Performed By: #### L 500.2500, L100.0100, L501.5425, L300.8000, L501.5200, L700.6800 #### [facility] [address] [place], [address] Urea nitrogen [Mass/Vol] 6 mg/dL Normal 4-19 [facility] Comment on above: Performed By: #### L 500.2500, L100.0100, L501.5425, L300.8000, L501.5200, L700.6800 #### [facility] [address] [place], [address] Bedside Glucoseon 04-27-2025 FINGERSTICK GLU 153 mg/dL High 74-106 [facility] Comment on above: Result Comment: CHAUNCEY RIZO OF PATIENT CARE PER NURSING PROTOCOL Performed By: #### L 501.4020 #### [facility] [address] [place], [address] FINGERSTICK GLU 149 mg/dL High 74-106 [facility] Comment on above: Result Comment: CHAUNCEY GEMENT OF PATIENT CARE PER NURSING PROTOCOL Performed By: #### L 500.2500, L100.0100, L501.5425, L300.8000, L501.5200, L700.6800 #### [facility] [address] [place], [address] FINGERSTICK GLU 194 mg/dL High 74-106 [facility] Comment on above: Result Comment: CHAUNCEY GEMENT OF PATIENT CARE PER NURSING PROTOCOL Performed By: #### L 501.4020 #### [facility] [address] [place], [address] FINGERSTICK GLU 107 mg/dL High 74-106 [facility] Comment on above: Result Comment: CHAUNCEY GEMENT OF PATIENT CARE PER NURSING PROTOCOL Performed By: #### L 500.2500, L100.0100, L501.5425, L300.8000, L501.5200, L700.6800 #### [facility] [address] [place], [address] CBC W/Diff, Automatedon 05-3 0-5 Absolute Lymph 0.83 X10 3/uL Normal 0.83-4.51 [facility] Comment on above: Performed By: #### L 500.2500, L100.0100, L501.5425, L300.8000, L501.5200, L700.6800 #### [facility] [address] [place], [address] Absolute Neut 9.6 X10 3/uL High 2.0-7.7 [facility] Comment on above: Performed By: #### L 500.2500, L100.0100, L501.5425, L300.8000, L501.5200, L700.6800 #### [facility] [address] [place], [address] Basophils/100 WBC (Bld) 0.3 % Normal 0-1 [facility] Comment on above: Performed By: #### L 500.2500, L100.0100, L501.5425, L300.8000, L501.5200, L700.6800 #### [facility] [address] [place], [address] Eosinophils/100 WBC (Bld) 0.1 % Normal 0-5 [facility] Comment on above: Performed By: #### L 500.2500, L100.0100, L501.5425, L300.8000, L501.5200, L700.6800 #### [facility] [address] [place], [address] Erythrocyte distribution width (RBC) [Ratio] 12.7 % Normal 11.6-14.6 [facility] Comment on above: Performed By: #### L 500.2500, L100.0100, L501.5425, L300.8000, L501.5200, L700.6800 #### [facility] [address] [place], [address] Hematocrit (Bld) [Volume fraction] 39.2 % Normal 37-47 [facility] Comment on above: Performed By: #### L 500.2500, L100.0100, L501.5425, L300.8000, L501.5200, L700.6800 #### [facility] [address] [place], [address] Hemoglobin (Bld) [Mass/Vol] 13.5 g/dL Normal 12.0-15.0 [facility] Comment on above: Performed By: #### L 500.2500, L100.0100, L501.5425, L300.8000, L501.5200, L700.6800 #### [facility] [address] [place], [address] IG% 0.400 Normal 0.0-0.9 [facility] Comment on above: Result Comment: IG% - Immature Granulocytes (promyelocytes, myelocytes and metamyelocytes) > 1% indicates that a LEFT SHIFT is Present. Performed By: #### L 500.2500, L100.0100, L501.5425, L300.8000, L501.5200, L700.6800 #### [facility] [address] [place], [address] Lymphocytes/100 WBC (Bld) 7.3 % Low 19-41 [facility] Comment on above: Performed By: #### L 500.2500, L100.0100, L501.5425, L300.8000, L501.5200, L700.6800 #### [facility] [address] [place], [address] MCH (RBC) [Entitic mass] 36.6 pg High 27.0-32.0 [facility] Comment on above: Performed By: #### L 500.2500, L100.0100, L501.5425, L300.8000, L501.5200, L700.6800 #### [facility] [address] [place], [address] MCHC (RBC) [Mass/Vol] 34.4 g/dL Normal 32-36 [facility] Comment on above: Performed By: #### L 500.2500, L100.0100, L501.5425, L300.8000, L501.5200, L700.6800 #### [facility] [address] [place], [address] MCV (RBC) [Entitic vol] 106.2 fL High 81-99 [facility] Comment on above: Performed By: #### L 500.2500, L100.0100, L501.5425, L300.8000, L501.5200, L700.6800 #### [facility] [address] [place], [address] Monocytes/100 WBC (Bld) 7.9 % Normal 0-10 [facility] Comment on above: Performed By: #### L 500.2500, L100.0100, L501.5425, L300.8000, L501.5200, L700.6800 #### [facility] [address] [place], [address] Neutrophils/100 WBC (Bld) 84.0 % High 47-70 [facility] Comment on above: Performed By: #### L 500.2500, L100.0100, L501.5425, L300.8000, L501.5200, L700.6800 #### [facility] [address] [place], [address] Nucleated RBC (Bld) [#/Vol] 0 10*3/uL Normal 0-5 [facility] Comment on above: Performed By: #### L 500.2500, L100.0100, L501.5425, L300.8000, L501.5200, L700.6800 #### [facility] [address] [place], [address] Platelet mean volume (Bld) [Entitic vol] 9.7 fL Normal 6.2-12.0 [facility] Comment on above: Performed By: #### L 500.2500, L100.0100, L501.5425, L300.8000, L501.5200, L700.6800 #### [facility] [address] [place], [address] Platelets (Bld) [#/Vol] 153 10*3/uL Normal 150-450 [facility] Comment on above: Performed By: #### L 500.2500, L100.0100, L501.5425, L300.8000, L501.5200, L700.6800 #### [facility] [address] [place], [address] RBC (Bld) [#/Vol] 3.69 10*6/uL Low 4.2-5.4 [facility] Comment on above: Performed By: #### L 500.2500, L100.0100, L501.5425, L300.8000, L501.5200, L700.6800 #### [facility] [address] [place], [address] RDW SD 49.7 fl High 35.1-43.9 [facility] Comment on above: Performed By: #### L 500.2500, L100.0100, L501.5425, L300.8000, L501.5200, L700.6800 #### [facility] [address] [place], [address] WBC (Bld) [#/Vol] 11.4 10*3/uL High 4.4-11.0 [facility] Comment on above: Performed By: #### L 500.2500, L100.0100, L501.5425, L300.8000, L501.5200, L700.6800 #### [facility] [address] [place], [address] Comprehensive Metabolic Prof ilon 04-27-2025 Albumin/Globulin [Mass ratio] 1.4 {ratio} Normal 0.9-2.4 [facility] Comment on above: Performed By: #### L 500.2500, L100.0100, L501.5425, L300.8000, L501.5200, L700.6800 #### [facility] [address] [place], [address] Hemoglobin A1con 04-27-2025 HbA1c (Bld) [Mass fraction] 5.6 % Normal <=5.6 [facility] Comment on above: Result Comment: Norm al < 5.7 % Prediabetic 5.7 - 6.4 % Diabetic >or= 6.5 % Please note range changes. Performed By: #### L 501.4020 #### [facility] [address] [place], [address] Liver Profileon 04-27-2025 Albumin [Mass/Vol] 3.9 g/dL Normal 3.5-5.0 [facility] Comment on above: Performed By: #### L 500.2500, L100.0100, L501.5425, L300.8000, L501.5200, L700.6800 #### [facility] [address] [place], [address] ALK PHOS 98 U/L Normal 35-104 [facility] Comment on above: Performed By: #### L 500.2500, L100.0100, L501.5425, L300.8000, L501.5200, L700.6800 #### [facility] [address] [place], [address] ALT [Catalytic activity/Vol] 46 U/L High <=34 [facility] Comment on above: Performed By: #### L 500.2500, L100.0100, L501.5425, L300.8000, L501.5200, L700.6800 #### [facility] [address] [place], [address] AST [Catalytic activity/Vol] 96 U/L High <=31 [facility] Comment on above: Performed By: #### L 500.2500, L100.0100, L501.5425, L300.8000, L501.5200, L700.6800 #### [facility] [address] [place], [address] Bilirubin [Mass/Vol] 0.99 mg/dL Normal 0.00-1.30 [facility] Comment on above: Performed By: #### L 500.2500, L100.0100, L501.5425, L300.8000, L501.5200, L700.6800 #### [facility] [address] [place], [address] Bilirubin.direct [Mass/Vol] 0.54 mg/dL High 0.00-0.30 [facility] Comment on above: Performed By: #### L 500.2500, L100.0100, L501.5425, L300.8000, L501.5200, L700.6800 #### [facility] [address] [place], [address] Globulin (S) [Mass/Vol] 2.7 g/dL Normal 2.2-4.2 [facility] Comment on above: Performed By: #### L 500.2500, L100.0100, L501.5425, L300.8000, L501.5200, L700.6800 #### [facility] [address] [place], [address] T PROT 6.6 g/dL Normal 5.9-8.4 [facility] Comment on above: Performed By: #### L 500.2500, L100.0100, L501.5425, L300.8000, L501.5200, L700.6800 #### [facility] [address] [place], [address] Magnesiumon 04-27-2025 Magnesium [Mass/Vol] 0.9 mg/dL Invalid Interpretation Code 1.5-2.2 [facility] Comment on above: Result Comment: Crit ical Result(s) Called at:04/27/2025-02:13 by: Dahiana Wills.??Results read back by same. Performed By: #### L 500.2500, L100.0100, L501.5425, L300.8000, L501.5200, L700.6800 #### [facility] [address] [place], [address] Phosphoruson 04-27-2025 Phosphate [Mass/Vol] 3.3 mg/dL Normal 2.7-4.5 [facility] Comment on above: Performed By: #### L 500.2500, L100.0100, L501.5425, L300.8000, L501.5200, L700.6800 #### [facility] [address] [place], [address] Prothrombin Time w/INRon INR Coag (PPP) [Relative time] 1.0 {INR} Normal [facility] Comment on above: Performed By: #### L 500.2500, L100.0100, L501.5425, L300.8000, L501.5200, L700.6800 #### [facility] [address] [place], [address] PT Coag (PPP) [Time] 12.9 s Normal 11.7-14.9 [facility] Comment on above: Performed By: #### L 500.2500, L100.0100, L501.5425, L300.8000, L501.5200, L700.6800 #### [facility] [address] [place], [address] Thyroid Stim Hormone (TSH)on 04-27-2025 TSH 4.010 uIU/mL Normal 0.300-4.200 [facility] Comment on above: Result Comment: AMENDED REPORT 04/27/25 0236 TSH previously reported as: 3.960 uIU/mL Performed By: #### L 500.2500, L100.0100, L501.5425, L300.8000, L501.5200, L700.6800 #### [facility] [address] [place], [address] Abdomen/Pelvis W IV Cont ONL Yon 04-26-2025 Abdomen/Pelvis W IV Cont ONLY [facility] [address] [place] [address] Abdomen/Pelvis W IV Cont ONLY MR#: [id number] Acct: [id number] Name: JOSEPH RINCON Rep #: [id number] : 1975 F 50 From: Guy walker MD PCP: Dr. Abisai Haley MD Status: REG ER Study: Abdomen/Pelvis W IV Cont ONLY Date of Exam: Exam# [id number] Ordering Dr: Humphrey Garcia DO PROCEDURE: ABDOMEN/PELVIS W IV CONT ONLY 04/26/2025 REASON FOR EXAM: DIFFUSE PAIN TECHNIQUE: Abdomen and pelvis CT with intravenous contrast. Coronal and Sagittal reconstruction series were provided. PATIENT PREPARATION: Per protocol ORAL CONTRAST TYPE: None. CONTRAST: Isovue-300 VOLUME: 100 mL One or more dose reduction techniques were used (e.g., Automated exposure control, adjustment of the mA and/or kV according to patient size, use of iterative reconstruction technique. RADIATION DOSE SUMMARY: CTDlvol: 11 mGy DLP: 588.06 mGycm COMPARISON: Prior study dated April 04, 2025. FINDINGS: Lung bases: Lung bases are clear. Liver: Diffuse fatty infiltration.. Stable focal geographic focal steatosis along the anterior falciform ligament. Gallbladder: Surgically absent. Spleen: Normal size. Pancreas: Diffuse enlargement of the pancreas with the peripancreatic edematous changes. Increased markings in the surrounding fat. Findings in keeping with acute pancreatitis. Calcifications are seen in the head of the pancreas. Findings in keeping with acute pancreatitis superimposed on chronic pancreatitis. Adrenals: Unremarkable Kidneys: Normal renal sizes. No hydronephrosis. Bladder: Unremarkable Reproductive Organs: Small right ovarian follicles. Bowel: Colonic diverticulosis without diverticulitis. Appendix: The appendix is not identified. There is no inflammatory process identified in the right lower quadrant to suggest appendicitis. Lymph nodes: Unremarkable. Vasculature: Mild diffuse atherosclerotic calcifications are noted. Peritoneum / Retroperitoneum: No free fluid. Bones: Degenerative changes of the spine. CT/Abdomen/Pelvis W IV Cont ONLY IMPRESSION: Findings in keeping with acute pancreatitis superimposed on chronic pancreatitis. Diffuse fatty infiltration of the liver. Reading Location: [facility] CC: Dr. Abisai Haley MD; Dr. Humphrey Garcia DO Sericulture Teacher: Signed Normal [facility] Absolute lymphocyte countOrd ered By: Humphrey Garcia on 04-26-2025 Lymphocytes Auto (Unsp spec) [#/Vol] 0.76 10*3/uL Low 0.83-4.51 [facility] Absolute neutrophil countOrd ered By: Humphrey Garcia on 04-26-2025 Neutrophils (Bld) [#/Vol] 8.8 10*3/uL High 2.0-7.7 [facility] Alcohol, Blood (Medical)-Ser umon 04-26-2025 SERUM ETOH < 10.1 Normal <=10.0 [facility] Comment on above: Result Comment: This test is for medical purposes only. The legal definition of intoxication varies according to local law. Performed By: #### L 500.2500, L100.0100, L501.5425, L300.8000, L501.5200, L700.6800 #### [facility] [address] [place] [address]. [place], [place], [address] Anion gap in Serum or Plasma Ordered By: Humphrey Garcia on 04-26-2025 Anion gap [Moles/Vol] 36 mmol/L High 5-15 [facility] Automated lymphocyte count a s percentage of total leukocytesOrdered By: Humphrey Garcia on 04-26-2025 Lymphocytes/100 WBC Auto (Unsp spec) 7.3 % Low 19-41 [facility] BUN/creatinine ratioOrdered By: Humphrey Garcia on 04-26-2025 Urea nitrogen/Creatinine [Mass ratio] 11.2 mg/mg 10-20 [facility] Basophil percentageOrdered B y: Humphrey Garcia on 04-26-2025 Basophils/100 WBC (Bld) 0.4 % 0-1 [facility] Bilirubin Test strip Ql (U)O rdered By: Humphrey Garcia on 04-26-2025 Bilirubin Ql (U) Negative Negative [facility] Bilirubin, totalOrdered By: Humphrey Garcia on 04-26-2025 Bilirubin [Mass/Vol] 1.42 mg/dL High 0.00-1.30 [facility] CBC W/Diff, Automatedon 03-30 Absolute Lymph 0.76 X10 3/uL Low 0.83-4.51 [facility] Comment on above: Performed By: #### L 500.2500, L100.0100, L501.5425, L300.8000, L501.5200, L700.6800 #### [facility] [address] [place], [address] Absolute Neut 8.8 X10 3/uL High 2.0-7.7 [facility] Comment on above: Performed By: #### L 500.2500, L100.0100, L501.5425, L300.8000, L501.5200, L700.6800 #### [facility] [address] [place], [address] Basophils/100 WBC (Bld) 0.4 % Normal 0-1 [facility] Comment on above: Performed By: #### L 500.2500, L100.0100, L501.5425, L300.8000, L501.5200, L700.6800 #### [facility] [address] [place], [address] Eosinophils/100 WBC (Bld) 0.0 % Normal 0-5 [facility] Comment on above: Performed By: #### L 500.2500, L100.0100, L501.5425, L300.8000, L501.5200, L700.6800 #### [facility] [address] [place], [address] Erythrocyte distribution width (RBC) [Ratio] 12.8 % Normal 11.6-14.6 [facility] Comment on above: Performed By: #### L 500.2500, L100.0100, L501.5425, L300.8000, L501.5200, L700.6800 #### [facility] [address] [place], [address] Hematocrit (Bld) [Volume fraction] 42.8 % Normal 37-47 [facility] Comment on above: Performed By: #### L 500.2500, L100.0100, L501.5425, L300.8000, L501.5200, L700.6800 #### [facility] [address] [place], [address] Hemoglobin (Bld) [Mass/Vol] 14.8 g/dL Normal 12.0-15.0 [facility] Comment on above: Performed By: #### L 500.2500, L100.0100, L501.5425, L300.8000, L501.5200, L700.6800 #### [facility] [address] [place], [address] IG% 0.700 Normal 0.0-0.9 [facility] Comment on above: Result Comment: IG% - Immature Granulocytes (promyelocytes, myelocytes and metamyelocytes) > 1% indicates that a LEFT SHIFT is Present. Performed By: #### L 500.2500, L100.0100, L501.5425, L300.8000, L501.5200, L700.6800 #### [facility] [address] [place], [address] Lymphocytes/100 WBC (Bld) 7.3 % Low 19-41 [facility] Comment on above: Performed By: #### L 500.2500, L100.0100, L501.5425, L300.8000, L501.5200, L700.6800 #### [facility] [address] [place], [address] MCH (RBC) [Entitic mass] 36.2 pg High 27.0-32.0 [facility] Comment on above: Performed By: #### L 500.2500, L100.0100, L501.5425, L300.8000, L501.5200, L700.6800 #### [facility] [address] [place], [address] MCHC (RBC) [Mass/Vol] 34.6 g/dL Normal 32-36 [facility] Comment on above: Performed By: #### L 500.2500, L100.0100, L501.5425, L300.8000, L501.5200, L700.6800 #### [facility] [address] [place], [address] MCV (RBC) [Entitic vol] 104.6 fL High 81-99 [facility] Comment on above: Performed By: #### L 500.2500, L100.0100, L501.5425, L300.8000, L501.5200, L700.6800 #### [facility] [address] [place], [address] Monocytes/100 WBC (Bld) 7.0 % Normal 0-10 [facility] Comment on above: Performed By: #### L 500.2500, L100.0100, L501.5425, L300.8000, L501.5200, L700.6800 #### [facility] [address] [place], [address] Neutrophils/100 WBC (Bld) 84.6 % High 47-70 [facility] Comment on above: Performed By: #### L 500.2500, L100.0100, L501.5425, L300.8000, L501.5200, L700.6800 #### [facility] [address] [place], [address] Nucleated RBC (Bld) [#/Vol] 0.2 10*3/uL Normal 0-5 [facility] Comment on above: Performed By: #### L 500.2500, L100.0100, L501.5425, L300.8000, L501.5200, L700.6800 #### [facility] [address] [place], [address] Platelet mean volume (Bld) [Entitic vol] 10.0 fL Normal 6.2-12.0 [facility] Comment on above: Performed By: #### L 500.2500, L100.0100, L501.5425, L300.8000, L501.5200, L700.6800 #### [facility] [address] [place], [address] Platelets (Bld) [#/Vol] 175 10*3/uL Normal 150-450 [facility] Comment on above: Performed By: #### L 500.2500, L100.0100, L501.5425, L300.8000, L501.5200, L700.6800 #### [facility] [address] [place], [address] RBC (Bld) [#/Vol] 4.09 10*6/uL Low 4.2-5.4 [facility] Comment on above: Performed By: #### L 500.2500, L100.0100, L501.5425, L300.8000, L501.5200, L700.6800 #### [facility] [address] [place], [address] RDW SD 49.4 fl High 35.1-43.9 [facility] Comment on above: Performed By: #### L 500.2500, L100.0100, L501.5425, L300.8000, L501.5200, L700.6800 #### [facility] [address] [place], [address] WBC (Bld) [#/Vol] 10.4 10*3/uL Normal 4.4-11.0 [facility] Comment on above: Performed By: #### L 500.2500, L100.0100, L501.5425, L300.8000, L501.5200, L700.6800 #### [facility] [address] [place], [address] Carbon dioxide, total [Moles /volume] in Central venous bloodOrdered By: Humphrey Garcia on 04-26-2025 CO2 [Moles/Vol] 16.4 mmol/L Low 21.0-32.0 [facility] Chloride assayOrdered By: Edison Garcia on 04-26-2025 Chloride [Moles/Vol] 87 mmol/L Low 98-108 [facility] Comprehensive Metabolic Prof ilon 04-26-2025 Albumin [Mass/Vol] 4.5 g/dL Normal 3.5-5.0 [facility] Comment on above: Performed By: #### L 500.2500, L100.0100, L501.5425, L300.8000, L501.5200, L700.6800 #### [facility] [address] [place], [address] Albumin/Globulin [Mass ratio] 1.4 {ratio} Normal 0.9-2.4 [facility] Comment on above: Performed By: #### L 500.2500, L100.0100, L501.5425, L300.8000, L501.5200, L700.6800 #### [facility] [address] [place], [address] ALK PHOS 122 U/L High 35-104 [facility] Comment on above: Performed By: #### L 500.2500, L100.0100, L501.5425, L300.8000, L501.5200, L700.6800 #### [facility] [address] [place], [address] ALT [Catalytic activity/Vol] 62 U/L High <=34 [facility] Comment on above: Performed By: #### L 500.2500, L100.0100, L501.5425, L300.8000, L501.5200, L700.6800 #### [facility] [address] [place], [address] AST [Catalytic activity/Vol] 127 U/L High <=31 [facility] Comment on above: Performed By: #### L 500.2500, L100.0100, L501.5425, L300.8000, L501.5200, L700.6800 #### [facility] [address] [place], [address] Bilirubin [Mass/Vol] 1.42 mg/dL High 0.00-1.30 [facility] Comment on above: Performed By: #### L 500.2500, L100.0100, L501.5425, L300.8000, L501.5200, L700.6800 #### [facility] [address] [place], [address] BUN/CRE 11.2 RATIO Normal 10-20 [facility] Comment on above: Performed By: #### L 500.2500, L100.0100, L501.5425, L300.8000, L501.5200, L700.6800 #### [facility] [address] [place], [address] Calcium [Mass/Vol] 8.9 mg/dL Normal 7.6-11.0 [facility] Comment on above: Performed By: #### L 500.2500, L100.0100, L501.5425, L300.8000, L501.5200, L700.6800 #### [facility] [address] [place], [address] Chloride [Moles/Vol] 87 mmol/L Low 98-108 [facility] Comment on above: Performed By: #### L 500.2500, L100.0100, L501.5425, L300.8000, L501.5200, L700.6800 #### [facility] [address] [place], [address] CO2 [Moles/Vol] 16.4 mmol/L Low 21.0-32.0 [facility] Comment on above: Performed By: #### L 500.2500, L100.0100, L501.5425, L300.8000, L501.5200, L700.6800 #### [facility] [address] [place], [address] Creatinine [Mass/Vol] 0.70 mg/dL Normal 0.70-1.20 [facility] Comment on above: Performed By: #### L 500.2500, L100.0100, L501.5425, L300.8000, L501.5200, L700.6800 #### [facility] [address] [place], [address] ECRCL 84.87 ml/min Normal 50-250 [facility] Comment on above: Performed By: #### L 500.2500, L100.0100, L501.5425, L300.8000, L501.5200, L700.6800 #### [facility] [address] [place], [address] GAP 36 High 5-15 [facility] Comment on above: Performed By: #### L 500.2500, L100.0100, L501.5425, L300.8000, L501.5200, L700.6800 #### [facility] [address] [place], [address] GFR/1.73 sq M.predicted among non-blacks MDRD (S/P/Bld) [Vol rate/Area] 107 mL/min/{1.73_m2} Normal >60 [facility] Comment on above: Result Comment: mL/m in/1.73m2 CKD-EPI Creatinine Equation (2020) Performed By: #### L 500.2500, L100.0100, L501.5425, L300.8000, L501.5200, L700.6800 #### [facility] [address] [place], [address] Globulin (S) [Mass/Vol] 3.2 g/dL Normal 2.2-4.2 [facility] Comment on above: Performed By: #### L 500.2500, L100.0100, L501.5425, L300.8000, L501.5200, L700.6800 #### [facility] [address] [place], [address] Glucose [Mass/Vol] 156 mg/dL High 70-99 [facility] Comment on above: Performed By: #### L 500.2500, L100.0100, L501.5425, L300.8000, L501.5200, L700.6800 #### [facility] [address] [place], [address] Potassium [Moles/Vol] 2.8 mmol/L Low 3.3-5.1 [facility] Comment on above: Performed By: #### L 500.2500, L100.0100, L501.5425, L300.8000, L501.5200, L700.6800 #### [facility] [address] [place], [address] Sodium [Moles/Vol] 139 mmol/L Normal 133-145 [facility] Comment on above: Performed By: #### L 500.2500, L100.0100, L501.5425, L300.8000, L501.5200, L700.6800 #### [facility] [address] [place], [address] T PROT 7.7 g/dL Normal 5.9-8.4 [facility] Comment on above: Performed By: #### L 500.2500, L100.0100, L501.5425, L300.8000, L501.5200, L700.6800 #### [facility] [address] [place], [address] Urea nitrogen [Mass/Vol] 8 mg/dL Normal 4-19 [facility] Comment on above: Performed By: #### L 500.2500, L100.0100, L501.5425, L300.8000, L501.5200, L700.6800 #### [facility] [address] [place], [address] Emergency Department Summary on 04-26-2025 Emergency Department Summary [facility] Medical Records Department [address] [place] [address] Emergency Department Summary 04/26/25 MR#: [id number] Acct: [id number] Name: JOSEPH RINCON Rep #: [id number] : 1975 50 From: Humphrye Garcia DO PCP: Dr. Abisai Halye MD Status:REG ER Location: ED HPI History of Present Illness Chief Complaint: Abd Pain Narrative Narrative: Patient is a 42-year-old female with past medical history of alcohol abuse but states that she has not drank since November, COPD, seizures, MOUNIKA, type 2 diabetes, hypertension who presents to the emergency department chief complaint abdominal pain, nausea, vomiting, diarrhea. Patient states that she has been sick for approximately 4 days now and states that she cannot keep anything down. She states that since her symptoms were not improving she came here for further evaluation management. Patient denies any previous abdominal surgery she states that she is passing gas and has normal colored stool. Patient denies any recent contacts [facility] Medical History Strain of left foot Plantar fasciitis of left foot Acute otitis media, right Contact with or exposure to other viral diseases URI (upper respiratory infection) Alcohol abuse GERD (gastroesophageal reflux disease) CPAP (continuous positive airway pressure) dependence Smoker COPD (chronic obstructive pulmonary disease) Myocardial infarct Seizures History of left heart catheterization (LHC) ( 11/19/22) Sleep apnea Pancreatitis Acute lumbar myofascial strain Strain of left hip Depression Anxiety Diabetes HTN (hypertension) Type 2 diabetes mellitus Home Medications ???Medication ???Instructions ???Recorded ???Last Taken ???Type metformin 500 mg tablet 500 ea PO BID DIABETES 10/31/22 21:30 History aspirin 81 mg chewable tablet 81 mg PO DAILY@0800 #30 tabs 11/19 Unknown Rx bupropion HCl 150 mg 24 hr tablet, 150 mg PO DAILY 01/21/23 Unknown History extended release budesonide-formotero l HFA 80 1 puff inhalation BID 04/09/23 Unk nown History mcg-4.5 mcg/actuation aerosol inhaler (Symbicort) montelukast 10 mg tablet 10 mg PO DAILY 04/09/23 Unknown Hi story (Singulair) pantoprazole 40 mg tablet,delayed 40 mg PO BID 05/04/23 Unknown His tory release cholecalciferol (vitamin D3) 50 50 mcg PO DAILY 08/25/23 Unknown H istory mcg (2,000 unit) capsule magnesium 250 mg tablet 250 mg PO DAILY 08/25/23 Unknown H istory omega-3 fatty acids 1,000 mg 1,000 mg PO DAILY 08/25/23 Unknown History capsule albuterol sulfate 90 mcg/actuation 2 puff inhalation Q6H PRN Unknown Rx aerosol inhaler shortness of breath or wheezing #8.5 grams empagliflozin 25 mg tablet 25 mg PO DAILY 11/12/24 Unknown Hi story (Jardiance) metoprolol succinate 25 mg 25 mg PO DAILY 11/12/24 Unknown Hi story tablet,extended release 24 hr amlodipine 5 mg tablet 5 mg PO DAILY 04/04/25 Unknown His tory buspirone 5 mg tablet 5 mg PO TID 04/04/25 Unknown Histo ry hydroxyzine HCl 10 mg tablet 10 mg PO TID PRN PRN anxiety 04/04 Unknown History ondansetron 4 mg disintegrating 4 mg PO Q8H PRN PRN Nausea #14 tab s 04/04/25 Unknown Rx tablet citalopram 40 mg tablet 40 mg PO DAILY 04/11/25 Unknown Hi story levocetirizine 5 mg tablet 5 mg PO DAILY 04/11/25 Unknown His tory lisinopril 40 mg tablet 40 mg PO DAILY 04/11/25 Unknown Hi story atorvastatin 40 mg tablet 40 mg PO DAILY #30 tabs 04/16/25 U nknown Rx budesonide-formotero l HFA 160 2 puff inhalation BID 04/26/25 Unk nown History mcg-4.5 mcg/actuation aerosol inhaler Allergy/AdvReac Type Severity Reaction Status Date / Time No Known Allergies Allergy Verified 04/26/25 13:44 Family History Grandfather CVA (cerebral vascular accident) Diabetes Mother Cancer Father Hypertension Grandmother Hypertension Diabetes Surgical History History of cholecystectomy H/O tooth extraction plantar fasciitis release Social History household members: spouse and children housing: house pets and animals: Yes Smoking Status: Light Smoker (<10/day) alcohol intake: current alcohol intake frequency: a few times a month Alcohol type: hard liquor substance use type: does not use ROS ROS ED ROS Narrative Constitutional: Denies any fevers, chills, headaches Cardiovascular: Denies chest pain Respiratory: Denies shortness of breath Abdomen: Complains of abdominal pain nausea vomiting diarrhea as noted above : Denies urinary symptoms Neurological: Denies numbness, weakness, tingling Musculoskeletal: (more content not included)... Normal [facility] Eosinophil percentageOrdered By: Humphrey Garcia on 04-26-2025 Eosinophils/100 WBC (Bld) 0.0 % 0-5 [facility] Erythrocyte distribution wid th ratioOrdered By: Humphrey Garcia on 04-26-2025 Erythrocyte distribution width (RBC) [Ratio] 12.8 % 11.6-14.6 [facility] Erythrocyte distribution wid th standard deviationOrdered By: Humphrey Garcia on 04-26-2025 Erythrocyte distribution width (RBC) [Ratio] 49.4 fl High 35.1-43.9 [facility] Glomerular filtration rate ( GFR) estimation/1.73 sq m using serum, plasma, or whole bOrdered By: Humphrey Garcia on 04-26-2025 GFR/1.73 sq M.predicted among non-blacks MDRD (S/P/Bld) [Vol rate/Area] 107 mL/min/{1.73_m2} >60 [facility] Comment on above: mL/min/1.73m2 CKD-EP I Creatinine Equation (2020) H AND P Exam - [facility] 04-26-2025 H&P Exam - Hospitalist [facility] Medical Records Department [address] [place] [address] H P Exam - Hospitalist 04/26/25 1718 MR#: [id number] Acct: [id number] Name: JOSEPH RINCON Rep #: [id number] : 1975 50 From: Julius Moncada MD PCP: Dr. Abisai Haley MD Status:ADM [place] Location: [address] HPI - General General Date of Admission: 04/26/25 Date of Service: 04/26/25 Chief Complaint: Abdominal pain HPI Narrative JOSEPH RINCON, is a 50 F with past medical history of alcohol abuse, chronic nicotine dependence, prior episodes of pancreatitis, anxiety, type 2 diabetes on metformin and empagliflozin, suspected bronchitis, hypertension on amlodipine, lisinopril 40, metoprolol succinate and GERD who presents to the ED with concerns regarding ongoing nausea and vomiting for the last 3 to 4 days with associated severe abdominal pain that is radiating to the back for the last 1 day. She has had previous symptoms of similar abdominal pain that was diagnosed with acute pancreatitis in the past. She has severe significantly cut down on her alcohol use and last drink was few days back Continues to smoke about half pack daily No family history of pancreatitis. She has had 4 episodes of pancreatitis in the past including 1 episode of bloody pseudocyst formation that required endoscopic aspiration. No recent weight changes, no chronic diarrhea or steatorrhea At the time of evaluation in the ED, WBC 10.4, hemoglobin 14.8 platelet count 175 sodium 139, potassium 2.8, chloride 87, BUN 8, creatinine 0.7, glucose 156, total bilirubin 1.4, AST 127, ALT 62, alkaline phosphatase 122 total protein 7.7, albumin 4.5 [facility] Medical History Strain of left foot Plantar fasciitis of left foot Acute otitis media, right Contact with or exposure to other viral diseases URI (upper respiratory infection) Alcohol abuse GERD (gastroesophageal reflux disease) CPAP (continuous positive airway pressure) dependence Smoker COPD (chronic obstructive pulmonary disease) Myocardial infarct Seizures History of left heart catheterization (LHC) ( 11/19/22) Sleep apnea Pancreatitis Acute lumbar myofascial strain Strain of left hip Depression Anxiety Diabetes HTN (hypertension) Type 2 diabetes mellitus Home Medications ???Medication ???Instructions ???Recorded ???Last Taken ???Type metformin 500 mg tablet 500 ea PO BID DIABETES 10/31/22 21:30 History aspirin 81 mg chewable tablet 81 mg PO DAILY@0800 #30 tabs 11/1904/26/25 Rx bupropion HCl 150 mg 24 hr tablet, 150 mg PO DAILY 01/21/23 Unknown History extended release budesonide-formotero l HFA 80 1 puff inhalation BID SOB/wheezing 04/09/23 04/26/25 History mcg-4.5 mcg/actuation aerosol inhaler (Symbicort) montelukast 10 mg tablet 10 mg PO DAILY 04/09/23 Unknown Hi story (Singulair) pantoprazole 40 mg tablet,delayed 40 mg PO BID 05/04/23 Unknown His tory release cholecalciferol (vitamin D3) 50 50 mcg PO DAILY 08/25/23 Unknown H istory mcg (2,000 unit) capsule magnesium 250 mg tablet 250 mg PO DAILY 08/25/23 Unknown H istory omega-3 fatty acids 1,000 mg 1,000 mg PO DAILY 08/25/23 Unknown History capsule albuterol sulfate 90 mcg/actuation 2 puff inhalation Q6H PRN Unknown Rx aerosol inhaler shortness of breath or wheezing #8.5 grams empagliflozin 25 mg tablet 25 mg PO DAILY 11/12/24 Unknown Hi story (Jardiance) metoprolol succinate 25 mg 25 mg PO DAILY 11/12/24 Unknown Hi story tablet,extended release 24 hr amlodipine 5 mg tablet 5 mg PO DAILY 04/04/25 Unknown His tory buspirone 5 mg tablet 5 mg PO TID 04/04/25 Unknown Histo ry hydroxyzine HCl 10 mg tablet 10 mg PO TID PRN PRN anxiety 04/04 Unknown History citalopram 40 mg tablet 40 mg PO DAILY 04/11/25 Unknown Hi story levocetirizine 5 mg tablet 5 mg PO DAILY 04/11/25 Unknown His tory lisinopril 40 mg tablet 40 mg PO DAILY 04/11/25 Unknown Hi story atorvastatin 40 mg tablet 40 mg PO DAILY #30 tabs 04/16/25 U nknown Rx budesonide-formotero l HFA 160 2 puff inhalation BID SOB 04/26/25 Unknown History mcg-4.5 mcg/actuation aerosol inhaler Allergy/AdvReac Type Severity Reaction Status Date / Time No Known Allergies Allergy Verified 04/26/25 13:44 Family History Grandfather CVA (cerebral vascular accident) Diabetes Mother Cancer Father Hypertension Grandmother Hypertension Diabetes Surgical History History of cholecystectomy H/O tooth extraction plantar fasciitis release Social History household members: spouse and children housing: house (more content not included)... Normal [facility] Hematocrit Auto (Bld) [Volum e fraction]Ordered By: Humphrey Garcia on 04-26-2025 Hematocrit (Bld) [Volume fraction] 42.8 % 37-47 [facility] Hemoglobin measurementOrdere d By: Humphrey Garcia on 04-26-2025 Hemoglobin (Bld) [Mass/Vol] 14.8 g/dL 12.0-15.0 [facility] Immature granulocytes/100 WB C Auto (Bld)Ordered By: Humphrey Garcia on 04-26-2025 Immature granulocytes/100 WBC (Bld) 0.700 % 0.0-0.9 [facility] Comment on above: IG% - Immature Granu locytes (promyelocytes, myelocytes and metamyelocytes) > 1% indicates that a LEFT SHIFT is Present. Ketones Test strip Ql (U)Ord ered By: Humphrey Garcia on 04-26-2025 Ketones Ql (U) 150 mg/dl Abnormal Negative [facility] Comment on above: CRITICAL VALUE *HCRI TICAL VALUE CALLED TO [id number]/29/25 Jennifer Herzog.RESULTS READ BACK BY SAME. Laboratory - Chemistry and C hemistry - challengeOrdered By: Hupmhrey Garcia on 04-26-2025 AST [Catalytic activity/Vol] 127 U/L High <32 [facility] Lipaseon 04-26-2025 Lipase [Catalytic activity/Vol] 1045 U/L High 13-75 [facility] Comment on above: Result Comment: Lucie schultz note: LIPASE revised reference range effective 23. New Lipase methodology. Expected to produce lower values than the previous assay method. NEW Reference Range: 13 - 75 U/L Performed By: #### L 500.2500, L100.0100, L501.5425, L300.8000, L501.5200, L700.6800 #### [facility] [address] [place], [address] Lipase measurementOrdered By : Humphrey Garcia on 04-26-2025 Lipase [Catalytic activity/Vol] 1045 U/L High 13-75 [facility] Comment on above: Please note:LIPASE r evised reference range effective 23. New Lipase methodology. Expected to produce lower values than the previous assay method. NEW Reference Range: 13 - 75 U/L MCV (mean corpuscular volume ) determinationOrdered By: Humphrey Garcia on 04-26-2025 MCV (RBC) [Entitic vol] 104.6 fL High 81-99 [facility] Mean corpuscular hemoglobin (MCH) determinationOrdered By: Humphrey Garcia on 04-26-2025 MCH (RBC) [Entitic mass] 36.2 pg High 27.0-32.0 [facility] Mean corpuscular hemoglobin concentration (MCHC) determinationOrdered By: Humphrey Garcia on 04-26-2025 MCHC (RBC) [Mass/Vol] 34.6 g/dL 32-36 [facility] Mean platelet volume determi nationOrdered By: Humphrey Garcia on 04-26-2025 Platelet mean volume (Bld) [Entitic vol] 10.0 fL 6.2-12.0 [facility] Microscopic analysis of urin e for red blood cells (RBC)Ordered By: Humphrey Garcia on 04-26-2025 Microscopic analysis of urine for red blood cells (RBC) 0-5 SEEN /hpf 0-5 [facility] Monocyte percentageOrdered B y: Humphrey Garcia on 04-26-2025 Monocytes/100 WBC (Bld) 7.0 % 0-10 [facility] Mucus LM Ql (Urine sed)Order ed By: Humphrey Garcia on 04-26-2025 Mucus Ql (Urine sed) 0 SEEN /hpf [facility] Neutrophil percentageOrdered By: Humphrey Garcia on 04-26-2025 Neutrophils/100 WBC (Bld) 84.6 % High 47-70 [facility] Nitrite Test strip Ql (U)Ord ered By: Humphrey Garcia on 04-26-2025 Nitrite Ql (U) Negative Negative [facility] Nucleated red blood cell per centageOrdered By: Humphrey Garcia on 04-26-2025 Nucleated RBC/100 WBC (Bld) [Ratio] 0.2 % 0-5 [facility] Platelet countOrdered By: Edison Garcia on 04-26-2025 Platelets (Bld) [#/Vol] 175 10*3/uL 150-450 [facility] Potassium measurement (mass/ volume)Ordered By: Humphrey Garcia on 04-26-2025 Potassium (Unsp spec) [Mass/Vol] 2.8 mmol/L Low 3.3-5.1 [facility] Protein Test strip Ql (U)Ord ered By: Humphrey Garcia on 04-26-2025 Protein Ql (U) 30 mg/dl High Negative [facility] Prothrombin Time w/INRon INR Coag (PPP) [Relative time] 1.0 {INR} Normal [facility] Comment on above: Performed By: #### L 500.2500, L100.0100, L501.5425, L300.8000, L501.5200, L700.6800 #### [facility] [address] [place], [place], [id number] PT Coag (PPP) [Time] 13.3 s Normal 11.7-14.9 [facility] Comment on above: Performed By: #### L 500.2500, L100.0100, L501.5425, L300.8000, L501.5200, L700.6800 #### [facility] [address] [place], [address] RBC Auto (Bld) [#/Vol]Ordere d By: Humphrey Garcia on 04-26-2025 RBC (Bld) [#/Vol] 4.09 10*6/uL Low 4.2-5.4 [facility] Serum creatinine measurement (mass/volume)Ordered By: Humphrey Garcia on 04-26-2025 Creatinine [Mass/Vol] 0.70 mg/dL 0.70-1.20 [facility] Serum globulin measurementOr dered By: Humphrey Garcia on 04-26-2025 Globulin (S) [Mass/Vol] 3.2 g/dL 2.2-4.2 [facility] Serum glucose measurement (m ass/volume)Ordered By: Humphrey Garcia on 04-26-2025 Glucose [Mass/Vol] 156 mg/dL High 70-99 [facility] Serum or plasma alanine wilkerson otransferase (ALT) measurementOrdered By: Humphrey Garcia on 04-26-2025 ALT [Catalytic activity/Vol] 62 U/L High <35 [facility] Serum or plasma albumin alphonso urement (mass/volume)Ordered By: Humphrey Garcia on 04-26-2025 Albumin [Mass/Vol] 4.5 g/dL 3.5-5.0 [facility] Serum or plasma albumin/glob ulin mass ratioOrdered By: Humphrey Garcia on 04-26-2025 Albumin/Globulin [Mass ratio] 1.4 {ratio} 0.9-2.4 [facility] Serum or plasma alkaline trinity sphatase measurementOrdered By: Humphrey Garcia on 04-26-2025 ALP [Catalytic activity/Vol] 122 U/L High 35-104 [facility] Serum or plasma calcium alphonso urement (mass/volume)Ordered By: Humphrey Garcia on 04-26-2025 Calcium [Mass/Vol] 8.9 mg/dL 7.6-11.0 [facility] Serum or plasma ethanol alphonso urement (mass/volume)Ordered By: Humphrey Garcia on 04-26-2025 Ethanol [Mass/Vol] mg/dL <10.1 [facility] Comment on above: This test is for med ical purposes only. The legal definition of intoxication varies according to local law. Serum or plasma urea nitroge n measurement (mass/volume)Ordered By: Humphrey Garcia on 04-26-2025 Urea nitrogen [Mass/Vol] 8 mg/dL 4-19 [facility] Sodium levelOrdered By: Scout Garcia on 04-26-2025 Sodium [Moles/Vol] 139 mmol/L 133-145 [facility] Squamous epithelial cells de tection in urine sediment by light microscopyOrdered By: Humphrey Garcia on 04-26-2025 Epithelial cells.squamous LM Ql (Urine sed) 0-5 SEEN /hpf 04-07 [facility] Total proteinOrdered By: Carin Garcia on 04-26-2025 Protein [Mass/Vol] 7.7 g/dL 5.9-8.4 [facility] Urinalysis, Completeon 04-26 EPI,SQUAMOUS 0-5 SEEN Normal 04-07 [facility] Comment on above: Order Comment: Comme nts: okay to do nonfasting Performed By: #### L 500.4100, L500.4050 #### [facility] [address] [place], [address] RBC 0-5 SEEN Normal 0-[address] [place] [address] Comment on above: Order Comment: Comme nts: okay to do nonfasting Performed By: #### L 500.4100, L500.4050 #### [facility] [address] [place], [address] BACTERIA 0 SEEN Normal None Seen [facility] Comment on above: Order Comment: Comme nts: okay to do nonfasting Performed By: #### L 500.4100, L500.4050 #### [facility] [address] [place], [address] Mucus Ql (Urine sed) [address] [facility] Comment on above: Order Comment: Comme nts: okay to do nonfasting Performed By: #### L 500.4100, L500.4050 #### [facility] [address] [place], [address] WBC 0 SEEN Normal 0-5 [facility] Comment on above: Order Comment: Comme nts: okay to do nonfasting Performed By: #### L 500.4100, L500.4050 #### [facility] [address] [place], [place], [id number] Urine clarityOrdered By: Carin Garcia on 04-26-2025 Clarity (U) Clear Clear [facility] Urine color determinationOrd ered By: Humphrey Garcia on 04-26-2025 Color (U) Yellow Yellow [facility] Urine glucose detectionOrder ed By: Humphrey Garcia on 04-26-2025 Glucose Ql (U) 1000 mg/dl High Normal [facility] Urine leukocyte esterase det ection by dipstickOrdered By: Humphrey Garcia on 04-26-2025 Leukocyte esterase Test strip Ql (U) Negative Negative [facility] Urine pHOrdered By: Humphrey tyler on 04-26-2025 pH (U) 6.0 [pH] 5.0 - 8.0 [facility] Urine sediment bacteria coun t by microscopy (number/high power field)Ordered By: Humphrey Garcia on 04-26-2025 Bacteria LM.HPF (Urine sed) [#/Area] 0 /[HPF] None Seen [facility] Urine specific gravity measu rementOrdered By: Humphrey Garcia on 04-26-2025 Specific gravity (U) [Rel density] 1.010 1.002-1.030 [facility] Urine urobilinogen measureme ntOrdered By: Humphrey Garcia on 04-26-2025 Urobilinogen Ql (U) 1 mg/dl High Normal [facility] White blood cell (WBC) count Ordered By: Humphrey Garcia on 04-26-2025 WBC (Bld) [#/Vol] 10.4 10*3/uL 4.4-11.0 [facility] White blood cell countOrdere d By: Humphrey Garcia on 04-26-2025 White blood cell count 0 SEEN /hpf 0-5 [facility] 12 Lead EKGon 04-11-2025 12 Lead EKG [facility] Services [address] [place] [address] 12 Lead EKG 04/11/25 2331 MR#: [id number] Acct: [id number] Name: JOSEPH RINCON Rep #: [id number] : 1975 50 From: Jose Taylor MD Attending Dr: Status: DEP ER Ordering Dr: Francisco Colon MD Date: 04/11/25 Location: ED Sex: F C Admitted: Test Reason : Blood Pressure : */* mmHG Vent. Rate : 78 BPM Atrial Rate : 78 BPM P-R Int : 132 ms QRS Dur : 86 ms QT Int : 428 ms P-R-T Axes : 60 65 75 degrees QTcB Int : 487 ms Normal sinus rhythm Prolonged QT Abnormal ECG Confirmed by JOSE TAYLOR MD ([id number]), primer expeditor and drier MADALYN MIRZA ([id number]) on 04/16/2025 9:06:53 AM Referred By: Confirmed By: JOSE TAYLOR MD 04/16/25 09 Date Jose Taylor MD CC: Dr. Abisai Haley MD; Dr. Francisco Colon MD Signed Normal [facility] Absolute lymphocyte countOrd ered By: Francisco Colon on 04-11-2025 Lymphocytes Auto (Unsp spec) [#/Vol] 2.10 10*3/uL 0.83-4.51 [facility] Absolute neutrophil countOrd ered By: Francisco Colon on 04-11-2025 Neutrophils (Bld) [#/Vol] 2.1 10*3/uL 2.0-7.7 [facility] Alcohol, Blood (Medical)-Ser umon 04-11-2025 SERUM ETOH 328.0 mg/dL Invalid Interpretation Code <=10.0 [facility] Comment on above: Result Comment: Crit ical Result(s) Called at:2346 by: LUISITO SONI TO CELINA LUJAN??Results read back by same. This test is for medical purposes only. The legal definition of intoxication varies according to local law. Performed By: #### L 500.0200, L500.4050 #### [facility] [address] [place], [address] Anion gap in Serum or Plasma Ordered By: Francisco Colon on 04-11-2025 Anion gap [Moles/Vol] 16 mmol/L High 5-15 [facility] Automated lymphocyte count a s percentage of total leukocytesOrdered By: Francisco Colon on 04-11-2025 Lymphocytes/100 WBC Auto (Unsp spec) 42.0 % High 19-41 [facility] BUN/creatinine ratioOrdered By: Francisco Colon on 04-11-2025 Urea nitrogen/Creatinine [Mass ratio] 20.2 mg/mg High - [facility] Basic Metabolic Profile (BMP )on 04-11-2025 BUN/CRE 20.2 RATIO High 09-17 [facility] Comment on above: Performed By: #### L 500.4100, L500.4050 #### [facility] [address] [place], [address] Calcium [Mass/Vol] 8.8 mg/dL Normal 7.6-11.0 [facility] Comment on above: Performed By: #### L 500.4100, L500.4050 #### [facility] [address] [place], [address] Chloride [Moles/Vol] 100 mmol/L Normal 98-108 [facility] Comment on above: Performed By: #### L 500.4100, L500.4050 #### [facility] [address] [place], [address] CO2 [Moles/Vol] 28.2 mmol/L Normal 21.0-32.0 [facility] Comment on above: Performed By: #### L 500.4100, L500.4050 #### [facility] [address] [place], [address] Creatinine [Mass/Vol] 0.53 mg/dL Low 0.70-1.20 [facility] Comment on above: Performed By: #### L 500.4100, L500.4050 #### [facility] [address] [place], [address] ECRCL 112.09 ml/min Normal 50-250 [facility] Comment on above: Performed By: #### L 500.4100, L500.4050 #### [facility] [address] [place], [address] GAP 16 High 5-15 [facility] Comment on above: Performed By: #### L 500.4100, L500.4050 #### [facility] [address] [place], [address] GFR/1.73 sq M.predicted among non-blacks MDRD (S/P/Bld) [Vol rate/Area] 114 mL/min/{1.73_m2} Normal >60 [facility] Comment on above: Result Comment: mL/m in/1.73m2 CKD-EPI Creatinine Equation (2020) Performed By: #### L 500.4100, L500.4050 #### [facility] [address] [place], [address] Glucose [Mass/Vol] 131 mg/dL High 70-99 [facility] Comment on above: Performed By: #### L 500.4100, L500.4050 #### [facility] [address] [place], [address] Potassium [Moles/Vol] 3.2 mmol/L Low 3.3-5.1 [facility] Comment on above: Performed By: #### L 500.4100, L500.4050 #### [facility] [address] [place], [address] Sodium [Moles/Vol] 144 mmol/L Normal 133-145 [facility] Comment on above: Performed By: #### L 500.4100, L500.4050 #### [facility] [address] [place], [address] Urea nitrogen [Mass/Vol] 11 mg/dL Normal 4-19 [facility] Comment on above: Performed By: #### L 500.4100, L500.4050 #### [facility] [address] [place], [address] Basophil percentageOrdered B y: Francisco Colon on 04-11-2025 Basophils/100 WBC (Bld) 1.2 % High 0-1 [facility] Bilirubin Test strip Ql (U)O rdered By: Francisco Colon on 04-11-2025 Bilirubin Ql (U) Negative Negative [facility] CBC W/Diff, Automatedon 03-29 Absolute Lymph 2.10 X10 3/uL Normal 0.83-4.51 [facility] Comment on above: Performed By: #### L 500.4100, L500.4050 #### [facility] [address] [place], [address] Absolute Neut 2.1 X10 3/uL Normal 2.0-7.7 [facility] Comment on above: Performed By: #### L 500.4100, L500.4050 #### [facility] [address] [place], [address] Basophils/100 WBC (Bld) 1.2 % High 0-1 [facility] Comment on above: Performed By: #### L 500.4100, L500.4050 #### [facility] [address] [place], [address] Eosinophils/100 WBC (Bld) 0.8 % Normal 0-5 [facility] Comment on above: Performed By: #### L 500.4100, L500.4050 #### [facility] [address] [place], [address] Erythrocyte distribution width (RBC) [Ratio] 13.5 % Normal 11.6-14.6 [facility] Comment on above: Performed By: #### L 500.4100, L500.4050 #### [facility] [address] [place], [address] Hematocrit (Bld) [Volume fraction] 37.7 % Normal 37-47 [facility] Comment on above: Performed By: #### L 500.4100, L500.4050 #### [facility] [address] [place], [address] Hemoglobin (Bld) [Mass/Vol] 13.5 g/dL Normal 12.0-15.0 [facility] Comment on above: Performed By: #### L 500.4100, L500.4050 #### [facility] [address] [place], [address] IG% 0.200 Normal 0.0-0.9 [facility] Comment on above: Result Comment: IG% - Immature Granulocytes (promyelocytes, myelocytes and metamyelocytes) > 1% indicates that a LEFT SHIFT is Present. Performed By: #### L 500.4100, L500.4050 #### [facility] [address] [place], [address] Lymphocytes/100 WBC (Bld) 42.0 % High 19-41 [facility] Comment on above: Performed By: #### L 500.4100, L500.4050 #### [facility] [address] [place], [address] MCH (RBC) [Entitic mass] 37.4 pg High 27.0-32.0 [facility] Comment on above: Performed By: #### L 500.4100, L500.4050 #### [facility] [address] [place], [address] MCHC (RBC) [Mass/Vol] 35.8 g/dL Normal 32-36 [facility] Comment on above: Performed By: #### L 500.4100, L500.4050 #### [facility] [address] [place], [address] MCV (RBC) [Entitic vol] 104.4 fL High 81-99 [facility] Comment on above: Performed By: #### L 500.4100, L500.4050 #### [facility] [address] [place], [address] Monocytes/100 WBC (Bld) 13.2 % High 0-10 [facility] Comment on above: Performed By: #### L 500.4100, L500.4050 #### [facility] [address] [place], [address] Neutrophils/100 WBC (Bld) 42.6 % Low 47-70 [facility] Comment on above: Performed By: #### L 500.4100, L500.4050 #### [facility] [address] [place], [address] Nucleated RBC (Bld) [#/Vol] 0.4 10*3/uL Normal 0-5 [facility] Comment on above: Performed By: #### L 500.4100, L500.4050 #### [facility] [address] [place], [address] Platelet mean volume (Bld) [Entitic vol] 9.6 fL Normal 6.2-12.0 [facility] Comment on above: Performed By: #### L 500.4100, L500.4050 #### [facility] [address] [place], [address] Platelets (Bld) [#/Vol] 246 10*3/uL Normal 150-450 [facility] Comment on above: Performed By: #### L 500.4100, L500.4050 #### [facility] [address] [place], [address] RBC (Bld) [#/Vol] 3.61 10*6/uL Low 4.2-5.4 [facility] Comment on above: Performed By: #### L 500.4100, L500.4050 #### [facility] [address] [place], [address] RDW SD 51.4 fl High 35.1-43.9 [facility] Comment on above: Performed By: #### L 500.4100, L500.4050 #### [facility] [address] [place], [address] WBC (Bld) [#/Vol] 5.0 10*3/uL Normal 4.4-11.0 [facility] Comment on above: Performed By: #### L 500.4100, L500.4050 #### [facility] [address] [place], [address] Carbon dioxide, total [Moles /volume] in Central venous bloodOrdered By: Francisco Colon on 04-11-2025 CO2 [Moles/Vol] 28.2 mmol/L 21.0-32.0 [facility] Chest PA and Lateralon 04-11 Chest PA and Lateral [facility] Imaging Services [address] [place] [address] Chest PA and Lateral MR#: [id number] Acct: [id number] Name: JOSEPH RINCON Rep #: [id number] : 1975 F 50 From: Jaziel morris MD PCP: Dr. Abisai Haley MD Status: [facility] ER Study: Chest PA and Lateral Date of Exam: 04/11/25 Exam# [id number] Ordering Dr: Francisco Colon MD PROCEDURE: CHEST PA AND LATERAL 04/11/2025 REASON FOR EXAM: CHEST PAIN TECHNIQUE: Frontal and lateral views of the chest. COMPARISON: 04/04/2025 FINDINGS: Hardware: None Heart: The heart size is normal. Mediastinum: The mediastinal contour is unremarkable. Lungs: The lungs are clear. Bones: The bones are unremarkable. RAD/Chest PA and Lateral IMPRESSION: NO ACUTE FINDINGS. Reading Location: [facility] CC: Dr. Abisai Haley MD; Dr. Francisco Colon MD Sericulture Teacher: Signed Normal [facility] Chloride assayOrdered By: Peyman Colon on 04-11-2025 Chloride [Moles/Vol] 100 mmol/L 98-108 [facility] Emergency Department Summary on 04-11-2025 Emergency Department Summary [facility] Medical Records Department [address] [place] [address] Emergency Department Summary 04/11/25 MR#: [id number] Acct: [id number] Name: JOSEPH RINCON Rep #: [id number] : 1975 50 From: Francisco Colon MD PCP: Dr. Abisai Haley MD Status:DEP ER Location: ED HPI HPI - Fall History of Present Illness Chief Complaint: Fall Informant: patient and family (Son at bedside and another family member.) Occured/Mechanism Occurred: Today Pain/Injury Pain Location: none Associated Symptoms Associated Symptoms: Negative for Parasthesias, Weakness, Loss of function, Inability to ambulate, Loss of consciousness or Amnesia Narrative Narrative: 50-year-old female history of COPD, diabetes hypertension. She was outside on the patio at home smoking cigarettes as she walked inside she told her son to call 911 and another family member and then she collapsed on the floor. It is unknown if she had an actual loss of consciousness. Seems like she had a period where she was unresponsive for 1 to 2 minutes. She has been drinking vodka today. Family says she has had increased stress lately due to her has had medical issues. She has no known cardiac history. Recently has had some nausea vomiting and diarrhea over the last week. No melena. Prior similar symptoms: No Recent Illness/Hospitalizat ion: No PFSH PFSH Medical History Strain of left foot Plantar fasciitis of left foot Acute otitis media, right Contact with or exposure to other viral diseases URI (upper respiratory infection) Alcohol abuse GERD (gastroesophageal reflux disease) CPAP (continuous positive airway pressure) dependence Smoker COPD (chronic obstructive pulmonary disease) Myocardial infarct Seizures History of left heart catheterization (LHC) ( 11/19/22) Sleep apnea Pancreatitis Acute lumbar myofascial strain Strain of left hip Depression Anxiety Diabetes HTN (hypertension) Type 2 diabetes mellitus Home Medications ???Medication ???Instructions ???Recorded ???Last Taken ???Type metformin 500 mg tablet 500 ea PO BID DIABETES 10/31/22 21:30 History aspirin 81 mg chewable tablet 81 mg PO DAILY@0800 #30 tabs 11/19 Unknown Rx bupropion HCl 150 mg 24 hr tablet, 150 mg PO DAILY 01/21/23 Unknown History extended release budesonide-formotero l HFA 80 1 puff inhalation BID 04/09/23 Unk nown History mcg-4.5 mcg/actuation aerosol inhaler (Symbicort) montelukast 10 mg tablet 10 mg PO DAILY 04/09/23 Unknown Hi story (Singulair) pantoprazole 40 mg tablet,delayed 40 mg PO BID 05/04/23 Unknown His tory release cholecalciferol (vitamin D3) 50 50 mcg PO DAILY 08/25/23 Unknown H istory mcg (2,000 unit) capsule magnesium 250 mg tablet 250 mg PO DAILY 08/25/23 Unknown H istory omega-3 fatty acids 1,000 mg 1,000 mg PO DAILY 08/25/23 Unknown History capsule atorvastatin 40 mg tablet 40 mg PO DAILY #30 tabs 04/18/24 U nknown Rx albuterol sulfate 90 mcg/actuation 2 puff inhalation Q6H PRN Unknown Rx aerosol inhaler shortness of breath or wheezing #8.5 grams empagliflozin 25 mg tablet 25 mg PO DAILY 11/12/24 Unknown Hi story (Jardiance) metoprolol succinate 25 mg 25 mg PO DAILY 11/12/24 Unknown Hi story tablet,extended release 24 hr amlodipine 5 mg tablet 5 mg PO DAILY 04/04/25 Unknown His tory buspirone 5 mg tablet 5 mg PO TID 04/04/25 Unknown Histo ry hydroxyzine HCl 10 mg tablet 10 mg PO TID PRN PRN anxiety 04/04 Unknown History ondansetron 4 mg disintegrating 4 mg PO Q8H PRN PRN Nausea #14 tab s 04/04/25 Unknown Rx tablet potassium chloride 20 mEq oral 20 meq PO DAILY 5 days #5 ea 04/04 Unknown Rx packet citalopram 40 mg tablet 40 mg PO DAILY 04/11/25 Unknown Hi story levocetirizine 5 mg tablet 5 mg PO DAILY 04/11/25 Unknown His tory lisinopril 40 mg tablet 40 mg PO DAILY 04/11/25 Unknown Hi story magnesium oxide 250 mg PO BID 04/11/25 Unknown His tory Allergy/AdvReac Type Severity Reaction Status Date / Time No Known Allergies Allergy Verified 04/11/25 21:41 Family History Grandfather CVA (cerebral vascular accident) Diabetes Mother Cancer Father Hypertension Grandmother Hypertension Diabetes Surgical History History of cholecystectomy H/O tooth extraction plantar fasciitis release Social History household members: spouse and children housing: house pets and animals: Yes Smoking Status: Light Smoker (<10/day) alcohol intake: current alcohol intake frequency: a few times a month Alcohol type: hard liquor substance (more content not included)... Normal [facility] Eosinophil percentageOrdered By: Francisco Colon on 04-11-2025 Eosinophils/100 WBC (Bld) 0.8 % 0-5 [facility] Erythrocyte distribution wid th ratioOrdered By: Francisco Colon on 04-11-2025 Erythrocyte distribution width (RBC) [Ratio] 13.5 % 11.6-14.6 [facility] Erythrocyte distribution wid th standard deviationOrdered By: Francisco Colon on 04-11-2025 Erythrocyte distribution width (RBC) [Ratio] 51.4 fl High 35.1-43.9 [facility] Glomerular filtration rate ( GFR) estimation/1.73 sq m using serum, plasma, or whole bOrdered By: Francisco Colon on 04-11-2025 GFR/1.73 sq M.predicted among non-blacks MDRD (S/P/Bld) [Vol rate/Area] 114 mL/min/{1.73_m2} >60 [facility] Comment on above: mL/min/1.73m2 CKD-EP I Creatinine Equation (2021) Hematocrit Auto (Bld) [Volum e fraction]Ordered By: Francisco Colon on 04-11-2025 Hematocrit (Bld) [Volume fraction] 37.7 % 37-47 [facility] Hemoglobin measurementOrdere d By: Francisco Colon on 04-11-2025 Hemoglobin (Bld) [Mass/Vol] 13.5 g/dL 12.0-15.0 [facility] Immature granulocytes/100 WB C Auto (Bld)Ordered By: Francisco Colon on 04-11-2025 Immature granulocytes/100 WBC (Bld) 0.200 % 0.0-0.9 [facility] Comment on above: IG% - Immature Granu locytes (promyelocytes, myelocytes and metamyelocytes) > 1% indicates that a LEFT SHIFT is Present. Ketones Test strip Ql (U)Ord ered By: Francisco Colon on 04-11-2025 Ketones Ql (U) Negative Negative [facility] L501.4021on 04-11-2025 Trop T High Sen < 6 Normal <=14 [facility] Comment on above: Performed By: #### L 500.4100, L500.4050 #### [facility] [address] [place], [place], [id number] Lipaseon 04-11-2025 Lipase [Catalytic activity/Vol] 70 U/L Normal 13-75 [facility] Comment on above: Result Comment: Plea se note: LIPASE revised reference range effective 23. New Lipase methodology. Expected to produce lower values than the previous assay method. NEW Reference Range: 13 - 75 U/L Performed By: #### L 500.4100, L500.4050 #### [facility] [address] [place], [address] Lipase measurementOrdered By : Francisco Colon on 04-11-2025 Lipase [Catalytic activity/Vol] 70 U/L 13-75 [facility] Comment on above: Please note:LIPASE r evised reference range effective 23. New Lipase methodology. Expected to produce lower values than the previous assay method. NEW Reference Range: 13 - 75 U/L MCV (mean corpuscular volume ) determinationOrdered By: Francisco Colon on 04-11-2025 MCV (RBC) [Entitic vol] 104.4 fL High 81-99 [facility] Mean corpuscular hemoglobin (MCH) determinationOrdered By: Francisco Colon on 04-11-2025 MCH (RBC) [Entitic mass] 37.4 pg High 27.0-32.0 [facility] Mean corpuscular hemoglobin concentration (MCHC) determinationOrdered By: Francisco Colon on 04-11-2025 MCHC (RBC) [Mass/Vol] 35.8 g/dL 32-36 [facility] Mean platelet volume determi nationOrdered By: Francisco Colon on 04-11-2025 Platelet mean volume (Bld) [Entitic vol] 9.6 fL 6.2-12.0 [facility] Microscopic analysis of urin e for red blood cells (RBC)Ordered By: Francisco Colon on 04-11-2025 Microscopic analysis of urine for red blood cells (RBC) 0 SEEN /hpf 0-5 [facility] Monocyte percentageOrdered B y: Francisco Colon on 04-11-2025 Monocytes/100 WBC (Bld) 13.2 % High 0-10 [facility] Mucus LM Ql (Urine sed)Order ed By: Francisco Colon on 04-11-2025 Mucus Ql (Urine sed) 0 SEEN /hpf [facility] Neutrophil percentageOrdered By: Francisco Colon on 04-11-2025 Neutrophils/100 WBC (Bld) 42.6 % Low 47-70 [facility] Nitrite Test strip Ql (U)Ord ered By: Francisco Colon on 04-11-2025 Nitrite Ql (U) Negative Negative [facility] Nucleated red blood cell per centageOrdered By: Francisco Colon on 04-11-2025 Nucleated RBC/100 WBC (Bld) [Ratio] 0.4 % 0-5 [facility] Platelet countOrdered By: Peyman Colon on 04-11-2025 Platelets (Bld) [#/Vol] 246 10*3/uL 150-450 [facility] Potassium measurement (mass/ volume)Ordered By: Francisco Colon on 04-11-2025 Potassium (Unsp spec) [Mass/Vol] 3.2 mmol/L Low 3.3-5.1 [facility] Protein Test strip Ql (U)Ord ered By: Francisco Colon on 04-11-2025 Protein Ql (U) 15 mg/dl High Negative [facility] RBC Auto (Bld) [#/Vol]Ordere d By: Francisco Colon on 04-11-2025 RBC (Bld) [#/Vol] 3.61 10*6/uL Low 4.2-5.4 [facility] Serum creatinine measurement (mass/volume)Ordered By: Francisco Colon on 04-11-2025 Creatinine [Mass/Vol] 0.53 mg/dL Low 0.70-1.20 [facility] Serum glucose measurement (m ass/volume)Ordered By: Francisco Colon on 04-11-2025 Glucose [Mass/Vol] 131 mg/dL High 70-99 [facility] Serum or plasma calcium alphonso urement (mass/volume)Ordered By: Francisco Colon on 04-11-2025 Calcium [Mass/Vol] 8.8 mg/dL 7.6-11.0 [facility] Serum or plasma ethanol alphonso urement (mass/volume)Ordered By: Francisco Colon on 04-11-2025 Ethanol [Mass/Vol] 328.0 mg/dL High <10.1 [facility] Comment on above: Critical Result(s) C alled at:2346 by: LUISITO SONI TO CELINA ULJAN Results read back by same.This test is for medical purposes only. The legal definition of intoxication varies according to local law. Serum or plasma urea nitroge n measurement (mass/volume)Ordered By: Francisco Colon on 04-11-2025 Urea nitrogen [Mass/Vol] 11 mg/dL 4-19 [facility] Sodium levelOrdered By: Francisco Colon on 04-11-2025 Sodium [Moles/Vol] 144 mmol/L 133-145 [facility] Squamous epithelial cells de tection in urine sediment by light microscopyOrdered By: Francisco Colon on 04-11-2025 Epithelial cells.squamous LM Ql (Urine sed) 0 SEEN /hpf 5-10 [facility] Troponin T.cardiac [Mass/vol ume] in Serum or Plasma by High sensitivity methodOrdered By: Francisco Colon on 04-11-2025 Troponin T.cardiac High sensitivity method [Mass/Vol] < 6 ng/L <14 [facility] Urinalysis, Completeon 04-11 BACTERIA 0 SEEN Normal None Seen [facility] Comment on above: Order Comment: Comme nts: okay to do nonfasting Performed By: #### L 500.4100, L500.4050 #### [facility] [address] [place], [address] EPI,SQUAMOUS 0 SEEN Normal 5-10 [facility] Comment on above: Order Comment: Comme nts: okay to do nonfasting Performed By: #### L 500.4100, L500.4050 #### [facility] [address] [place], [address] Mucus Ql (Urine sed) [address] [facility] Comment on above: Order Comment: Comme nts: okay to do nonfasting Performed By: #### L 500.4100, L500.4050 #### [facility] [address] [place], [address] RBC 0 SEEN Normal 0-5 [facility] Comment on above: Order Comment: Comme nts: okay to do nonfasting Performed By: #### L 500.4100, L500.4050 #### [facility] [address] [place], [address] WBC 0 SEEN Normal 0-5 [facility] Comment on above: Order Comment: Comme nts: okay to do nonfasting Performed By: #### L 500.4100, L500.4050 #### [facility] [address] [place], [address] Urine clarityOrdered By: Rommel Colon on 04-11-2025 Clarity (U) Clear Clear [facility] Urine color determinationOrd ered By: Francisco Colon on 04-11-2025 Color (U) Yellow Yellow [facility] Urine glucose detectionOrder ed By: Francisco Colon on 04-11-2025 Glucose Ql (U) Normal mg/dl Normal [facility] Urine leukocyte esterase det ection by dipstickOrdered By: Francisco Colon on 04-11-2025 Leukocyte esterase Test strip Ql (U) Negative Negative [facility] Urine pHOrdered By: Francisco stuart on 04-11-2025 pH (U) 7.0 [pH] 5.0 - 8.0 [facility] Urine sediment bacteria coun t by microscopy (number/high power field)Ordered By: Francisco Colon on 04-11-2025 Bacteria LM.HPF (Urine sed) [#/Area] 0 /[HPF] None Seen [facility] Urine specific gravity measu rementOrdered By: Francisco Colon on 04-11-2025 Specific gravity (U) [Rel density] 1.010 1.002-1.030 [facility] Urine urobilinogen measureme ntOrdered By: Francisco Colon on 04-11-2025 Urobilinogen Ql (U) Normal mg/dl Normal [facility] White blood cell (WBC) count Ordered By: Francisco Colon on 04-11-2025 WBC (Bld) [#/Vol] 5.0 10*3/uL 4.4-11.0 [facility] White blood cell countOrdere d By: Francisco Colon on 04-11-2025 White blood cell count 0 SEEN /hpf 0-5 [facility] 12 Lead EKGon 04-04-2025 12 Lead EKG [facility] Cardiovascular Services [address] [place] [address] 12 Lead EKG 04/04/25 1035 MR#: [id number] Acct: [id number] Name: JOSEPH RINCON Rep #: [id number] : 1975 50 From: Noe Coy MD Attending Dr: Status: DEP ER Ordering Dr: Imani Knight DO Date: 04/04/25 Location: ED Sex: F C Admitted: Test Reason : CP Blood Pressure : */* mmHG Vent. Rate : 119 BPM Atrial Rate : 119 BPM P-R Int : 118 ms QRS Dur : 70 ms QT Int : 344 ms P-R-T Axes : 86 74 82 degrees QTcB Int : 483 ms Sinus tachycardia Nonspecific ST and T wave abnormality Abnormal ECG Confirmed by Noe Coy ([id number]), primer expeditor and drier JAVID JAMES ([id number]) on 04/06/2025 12:47:46 PM Referred By: Confirmed By: Noe Coy 04/06/25 1247 Date Noe Coy MD CC: Dr. Abisai Haley MD; Dr. Imani Knight DO Signed Normal [facility] Abdomen/Pelvis W IV Cont ONL Yon 04-04-2025 Abdomen/Pelvis W IV Cont ONLY [facility] Imaging Services [address] [place], [place] [address] Abdomen/Pelvis W IV Cont ONLY MR#: [id number] Acct: [id number] Name: JOSEPH RINCON Rep #: [id number] : 1975 F 50 From: Mao Giraldo MD PCP: Dr. Abisai Haley MD Status: REG ER Study: Abdomen/Pelvis W IV Cont ONLY Date of Exam: Exam# [id number] Ordering Dr: Imani Kinght DO PROCEDURE: ABDOMEN/PELVIS W IV CONT ONLY, 04/04/2025 REASON FOR EXAM: EPIAGSTRIC PAIN, VOMITING TECHNIQUE: CT abdomen and pelvis was performed with IV contrast. Multiplanar reformats were generated. IV contrast: Isovue-300 VOLUME: 98mL RADIATION DOSE SUMMARY: CTDlvol: 9.97+ 11.45 mGy DLP: 595.61 mGycm One or more dose reduction techniques were used (e.g., Automated exposure control, adjustment of the mA and/or kV according to patient size, use of iterative reconstruction technique). COMPARISON: 07/11/2024 FINDINGS: Lung bases: Vaguely nodular irregular RIGHT middle lobe airspace disease is new from prior, roughly 13 x 24 mm (series 2, image 11). Liver: Diffuse hepatic hypoattenuation is new from prior. Geographic likely focal steatosis along the anterior falciform. Punctate subcentimeter hypodensity too small to characterize, likely cysts/hemangioma in the absence of known malignancy. Spleen: Unremarkable. Gallbladder: Cholecystectomy similar mild dilatation of the CBD to 8 mm, favoring post cholecystectomy effect. Pancreas: Focal calcifications in the pancreatic head/uncinate process versus a calcified adjacent lymph node as can be seen in chronic granulomatous disease, similar to prior exams dating back to 08/23/2023.. Adrenals: Unremarkable. Kidneys: Unremarkable. Bowel: Focally borderline mildly dilated small bowel loop in the LEFT anterior lower abdomen measures 3.0 cm in diameter tapering proximally and distally. No convincing inflammation... Normal caliber appendix. Lymph nodes: Unremarkable. Vasculature: Moderate atherosclerosis, probably slightly greater than expected for age. Peritoneum: Unremarkable. Bladder: Underdistended and suboptimally evaluated, grossly unremarkable. Reproductive Organs: Unremarkable. Body Wall: Unremarkable. Bones: Unremarkable. CT/Abdomen/Pelvis W IV Cont ONLY IMPRESSION: 1. Correlate for minimal small bowel ileus. 2. Findings in the RIGHT middle lobe which may reflect mild pneumonia. Given nodular appearance, recommend CT chest in 3 months to document resolution. 3. Diffuse hepatic hypoattenuation is new from prior, typically indicating steatosis. Correlate for clinical and laboratory evidence of chronic liver disease as well as hepatitis which could conceivably appear similarly. 4. Additional description as above. Reading Location: [id number] CC: Dr. Abisai Haley MD; Dr. Imani Knight DO Sericulture Teacher: Signed Normal [facility] Absolute lymphocyte countOrd ered By: ED PROVIDER on 04-04-2025 Lymphocytes Auto (Unsp spec) [#/Vol] 1.23 10*3/uL 0.83-4.51 [facility] Absolute neutrophil countOrd ered By: ED PROVIDER on 04-04-2025 Neutrophils (Bld) [#/Vol] 6.8 10*3/uL 2.0-7.7 [facility] Anion gap in Serum or Plasma Ordered By: Imani Knight on 04-04-2025 Anion gap [Moles/Vol] 18 mmol/L High 5-15 [facility] Automated lymphocyte count a s percentage of total leukocytesOrdered By: ED PROVIDER on 04-04-2025 Lymphocytes/100 WBC Auto (Unsp spec) 14.0 % Low 19-41 [facility] BUN/creatinine ratioOrdered By: Imani Knight on 04-04-2025 Urea nitrogen/Creatinine [Mass ratio] 8.7 mg/mg Low 10-20 [facility] Basic Metabolic Profile (BMP )on 04-04-2025 BUN/CRE 8.7 RATIO Low 10-20 [facility] Comment on above: Performed By: #### L 500.2500, L100.0100, L501.5425, L300.8000, L501.5200, L700.6800 #### [facility] [address] [place], [address] Calcium [Mass/Vol] 8.4 mg/dL Normal 7.6-11.0 [facility] Comment on above: Performed By: #### L 500.2500, L100.0100, L501.5425, L300.8000, L501.5200, L700.6800 #### [facility] [address] [place], [address] Chloride [Moles/Vol] 94 mmol/L Low 98-108 [facility] Comment on above: Performed By: #### L 500.2500, L100.0100, L501.5425, L300.8000, L501.5200, L700.6800 #### [facility] [address] [place], [address] CO2 [Moles/Vol] 27.3 mmol/L Normal 21.0-32.0 [facility] Comment on above: Performed By: #### L 500.2500, L100.0100, L501.5425, L300.8000, L501.5200, L700.6800 #### [facility] [address] [place], [address] Creatinine [Mass/Vol] 0.55 mg/dL Low 0.70-1.20 [facility] Comment on above: Performed By: #### L 500.2500, L100.0100, L501.5425, L300.8000, L501.5200, L700.6800 #### [facility] [address] [place], [address] GAP 18 High 5-15 [facility] Comment on above: Performed By: #### L 500.2500, L100.0100, L501.5425, L300.8000, L501.5200, L700.6800 #### [facility] [address] [place], [address] GFR/1.73 sq M.predicted among non-blacks MDRD (S/P/Bld) [Vol rate/Area] 113 mL/min/{1.73_m2} Normal >60 [facility] Comment on above: Result Comment: mL/m in/1.73m2 CKD-EPI Creatinine Equation (2020) Performed By: #### L 500.2500, L100.0100, L501.5425, L300.8000, L501.5200, L700.6800 #### [facility] [address] [place], [address] Glucose [Mass/Vol] 131 mg/dL High 70-99 [facility] Comment on above: Performed By: #### L 500.2500, L100.0100, L501.5425, L300.8000, L501.5200, L700.6800 #### [facility] [address] [place], [address] Potassium [Moles/Vol] 2.9 mmol/L Low 3.3-5.1 [facility] Comment on above: Performed By: #### L 500.2500, L100.0100, L501.5425, L300.8000, L501.5200, L700.6800 #### [facility] [address] [place], [address] Sodium [Moles/Vol] 139 mmol/L Normal 133-145 [facility] Comment on above: Performed By: #### L 500.2500, L100.0100, L501.5425, L300.8000, L501.5200, L700.6800 #### [facility] [address] [place], [address] Urea nitrogen [Mass/Vol] 5 mg/dL Normal 4-19 [facility] Comment on above: Performed By: #### L 500.2500, L100.0100, L501.5425, L300.8000, L501.5200, L700.6800 #### [facility] [address] [place], [address] Basophil percentageOrdered B y: ED PROVIDER on 04-04-2025 Basophils/100 WBC (Bld) 0.7 % 0-1 [facility] Bilirubin directOrdered By: Imani Knight on 04-04-2025 Bilirubin.direct [Mass/Vol] 0.67 mg/dL High 0.00-0.30 [facility] Bilirubin, totalOrdered By: Imani Knight on 04-04-2025 Bilirubin [Mass/Vol] 1.26 mg/dL 0.00-1.30 [facility] CBC W/Diff, Automatedon Absolute Lymph 1.23 X10 3/uL Normal 0.83-4.51 [facility] Comment on above: Performed By: #### L 500.2500, L100.0100, L501.5425, L300.8000, L501.5200, L700.6800 #### [facility] [address] [place], [address] Absolute Neut 6.8 X10 3/uL Normal 2.0-7.7 [facility] Comment on above: Performed By: #### L 500.2500, L100.0100, L501.5425, L300.8000, L501.5200, L700.6800 #### [facility] [address] [place], [address] Basophils/100 WBC (Bld) 0.7 % Normal 0-1 [facility] Comment on above: Performed By: #### L 500.2500, L100.0100, L501.5425, L300.8000, L501.5200, L700.6800 #### [facility] [address] [place], [address] Eosinophils/100 WBC (Bld) 0.2 % Normal 0-5 [facility] Comment on above: Performed By: #### L 500.2500, L100.0100, L501.5425, L300.8000, L501.5200, L700.6800 #### [facility] [address] [place], [address] Erythrocyte distribution width (RBC) [Ratio] 13.5 % Normal 11.6-14.6 [facility] Comment on above: Performed By: #### L 500.2500, L100.0100, L501.5425, L300.8000, L501.5200, L700.6800 #### [facility] [address] [place], [address] Hematocrit (Bld) [Volume fraction] 40.3 % Normal 37-47 [facility] Comment on above: Performed By: #### L 500.2500, L100.0100, L501.5425, L300.8000, L501.5200, L700.6800 #### [facility] [address] [place], [address] Hemoglobin (Bld) [Mass/Vol] 14.3 g/dL Normal 12.0-15.0 [facility] Comment on above: Performed By: #### L 500.2500, L100.0100, L501.5425, L300.8000, L501.5200, L700.6800 #### [facility] [address] [place], [address] IG% 0.300 Normal 0.0-0.9 [facility] Comment on above: Result Comment: IG% - Immature Granulocytes (promyelocytes, myelocytes and metamyelocytes) > 1% indicates that a LEFT SHIFT is Present. Performed By: #### L 500.2500, L100.0100, L501.5425, L300.8000, L501.5200, L700.6800 #### [facility] [address] [place], [address] Lymphocytes/100 WBC (Bld) 14.0 % Low 19-41 [facility] Comment on above: Performed By: #### L 500.2500, L100.0100, L501.5425, L300.8000, L501.5200, L700.6800 #### [facility] [address] [place], [address] MCH (RBC) [Entitic mass] 35.4 pg High 27.0-32.0 [facility] Comment on above: Performed By: #### L 500.2500, L100.0100, L501.5425, L300.8000, L501.5200, L700.6800 #### [facility] [address] [place], [address] MCHC (RBC) [Mass/Vol] 35.5 g/dL Normal 32-36 [facility] Comment on above: Performed By: #### L 500.2500, L100.0100, L501.5425, L300.8000, L501.5200, L700.6800 #### [facility] [address] [place], [address] MCV (RBC) [Entitic vol] 99.8 fL High 81-99 [facility] Comment on above: Performed By: #### L 500.2500, L100.0100, L501.5425, L300.8000, L501.5200, L700.6800 #### [facility] [address] [place], [address] Monocytes/100 WBC (Bld) 7.8 % Normal 0-10 [facility] Comment on above: Performed By: #### L 500.2500, L100.0100, L501.5425, L300.8000, L501.5200, L700.6800 #### [facility] [address] [place], [address] Neutrophils/100 WBC (Bld) 77.0 % High 47-70 [facility] Comment on above: Performed By: #### L 500.2500, L100.0100, L501.5425, L300.8000, L501.5200, L700.6800 #### [facility] [address] [place], [address] Nucleated RBC (Bld) [#/Vol] 0.2 10*3/uL Normal 0-5 [facility] Comment on above: Performed By: #### L 500.2500, L100.0100, L501.5425, L300.8000, L501.5200, L700.6800 #### [facility] [address] [place], [address] Platelet mean volume (Bld) [Entitic vol] 10.0 fL Normal 6.2-12.0 [facility] Comment on above: Performed By: #### L 500.2500, L100.0100, L501.5425, L300.8000, L501.5200, L700.6800 #### [facility] [address] [place], [address] Platelets (Bld) [#/Vol] 186 10*3/uL Normal 150-450 [facility] Comment on above: Performed By: #### L 500.2500, L100.0100, L501.5425, L300.8000, L501.5200, L700.6800 #### [facility] [address] [place], [address] RBC (Bld) [#/Vol] 4.04 10*6/uL Low 4.2-5.4 [facility] Comment on above: Performed By: #### L 500.2500, L100.0100, L501.5425, L300.8000, L501.5200, L700.6800 #### [facility] [address] [place], [address] RDW SD 50.3 fl High 35.1-43.9 [facility] Comment on above: Performed By: #### L 500.2500, L100.0100, L501.5425, L300.8000, L501.5200, L700.6800 #### [facility] [address] [place], [address] WBC (Bld) [#/Vol] 8.8 10*3/uL Normal 4.4-11.0 [facility] Comment on above: Performed By: #### L 500.2500, L100.0100, L501.5425, L300.8000, L501.5200, L700.6800 #### [facility] [address] [place], [address] Carbon dioxide, total [Moles /volume] in Central venous bloodOrdered By: Imani Knight on 04-04-2025 CO2 [Moles/Vol] 27.3 mmol/L 21.0-32.0 [facility] Chest 1 View (Portable)on Chest 1 View (Portable) [facility] Imaging Services [address] [place] [address] Chest 1 View (Portable) MR#: [id number] Acct: [id number] Name: JOSEPH RINCON Rep #: [id number] : 1975 F 50 From: Canelo Zhang PCP: Dr. Abisai Haley MD Status: REG ER Study: Chest 1 View (Portable) Date of Exam: 04/04/25 Exam# [id number] Ordering Dr: Imani Knight DO PROCEDURE: CHEST 1 VIEW (PORTABLE) 04/04/2025 REASON FOR EXAM: CHEST PAIN TECHNIQUE: Frontal view of the chest. COMPARISON: Chest x-ray 11/12/2024 RAD/Chest 1 View (Portable) IMPRESSION: Lungs appear clear throughout. No pleural effusion or pneumothorax is seen. The cardiomediastinal silhouette is stable, without evidence of cardiomegaly. No acute osseous process is seen. Negative examination. Reading Location: [place] [address] CC: Dr. Abisai Haley MD; Dr. 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 Emergency Department Summary on 04-04-2025 Emergency Department Summary [facility] Medical Records Department [address] [place] [address] Emergency Department Summary 04/04/25 MR#: [id number] Acct: [id number] Name: JOSEPH RINCON Rep #: [id number] : 1975 50 From: Imani Knight DO PCP: Dr. Abisai Haley MD Status:REG ER Location: ED HPI History of Present Illness Chief Complaint: Palpitations Informant: patient Narrative Narrative: Patient is a 50-year-old female with history of of ACS, NSTEMI, pancreatitis, hypertension, anxiety, COPD presenting with nausea, vomiting, epigastric abdominal pain and palpitations. Patient states was [birth year] birthday yesterday. She notes she had a little to drink. She woke up at 330 this morning and had nausea and multiple signs of vomiting. She states she has from 7 times. She did have a bowel movement this morning which she describes as regular. She denies any blood in her vomit or her stool. No she felt okay yesterday. States today she feels funny. She states that her hands and feet are felt slightly tingly. She took her blood pressure and was elevated at 197/108. She took her morning medications but then drove about 30 minutes later so she is not sure how much but she kept down. She describes the pain in her epigastric region and has burst of pain. Denies any fever but has had intermittent hot flashes and then chills/sweats. [facility] Medical History Strain of left foot Plantar fasciitis of left foot Acute otitis media, right Contact with or exposure to other viral diseases URI (upper respiratory infection) Alcohol abuse GERD (gastroesophageal reflux disease) CPAP (continuous positive airway pressure) dependence Smoker COPD (chronic obstructive pulmonary disease) Myocardial infarct Seizures History of left heart catheterization (LHC) ( 11/19/22) Sleep apnea Pancreatitis Acute lumbar myofascial strain Strain of left hip Depression Anxiety Diabetes HTN (hypertension) Type 2 diabetes mellitus Home Medications ???Medication ???Instructions ???Recorded ???Last Taken ???Type metformin 500 mg tablet 500 ea PO BID DIABETES 10/31/22 21:30 History aspirin 81 mg chewable tablet 81 mg PO DAILY@0800 #30 tabs 11/19 Unknown Rx bupropion HCl 150 mg 24 hr tablet, 150 mg PO DAILY 01/21/23 Unknown History extended release citalopram 20 mg tablet 20 mg PO DAILY 03/22/23 Unknown Hi story budesonide-formotero l HFA 80 1 puff inhalation BID 04/09/23 Unk nown History mcg-4.5 mcg/actuation aerosol inhaler (Symbicort) montelukast 10 mg tablet 10 mg PO DAILY 04/09/23 Unknown Hi story (Singulair) pantoprazole 40 mg tablet,delayed 40 mg PO BID 05/04/23 Unknown His tory release cholecalciferol (vitamin D3) 50 50 mcg PO DAILY 08/25/23 Unknown H istory mcg (2,000 unit) capsule magnesium 250 mg tablet 250 mg PO DAILY 08/25/23 Unknown H istory omega-3 fatty acids 1,000 mg 1,000 mg PO DAILY 08/25/23 Unknown History capsule phenazopyridine 95 mg tablet 95 mg PO BID 08/25/23 Unknown Hist ory atorvastatin 40 mg tablet 40 mg PO DAILY #30 tabs 04/18/24 U nknown Rx albuterol sulfate 90 mcg/actuation 2 puff inhalation Q6H PRN Unknown Rx aerosol inhaler shortness of breath or wheezing #8.5 grams empagliflozin 25 mg tablet 25 mg PO DAILY 12/15/24 Unknown Hi story (Jardiance) metoprolol succinate 25 mg 25 mg PO DAILY 11/12/24 Unknown Hi story tablet,extended release 24 hr lisinopril 20 mg tablet 20 mg PO DAILY BLOOD PRESSURE #30 02/26/25 Unknown Rx tabs amlodipine 5 mg tablet 5 mg PO DAILY 04/04/25 Unknown His tory buspirone 5 mg tablet 5 mg PO TID 04/04/25 Unknown Histo ry hydroxyzine HCl 10 mg tablet 10 mg PO TID PRN PRN anxiety 04/04 Unknown History magnesium 250 mg tablet 250 mg PO BID 2 weeks #28 tabs 06/22 Unknown Rx ondansetron 4 mg disintegrating 4 mg PO Q8H PRN PRN Nausea #14 tab s 04/04/25 Unknown Rx tablet potassium chloride 20 mEq oral 20 meq PO DAILY 5 days #5 ea 04/04 Unknown Rx packet Allergy/AdvReac Type Severity Reaction Status Date / Time No Known Allergies Allergy Verified 04/04/25 10:24 Family History Grandfather CVA (cerebral vascular accident) Diabetes Mother Cancer Father Hypertension Grandmother Hypertension Diabetes Surgical History History of cholecystectomy H/O tooth extraction plantar fasciitis release Social History household members: spouse and children housing: house pets and animals: Yes Smoking Status: Current some day smoker tobacco type: cigarettes alcohol intake: current alcohol intake hua (more content not included)... Normal [facility] Eosinophil percentageOrdered By: ED PROVIDER on 04-04-2025 Eosinophils/100 WBC (Bld) 0.2 % 0-5 [facility] Erythrocyte distribution wid th ratioOrdered By: ED PROVIDER on 04-04-2025 Erythrocyte distribution width (RBC) [Ratio] 13.5 % 11.6-14.6 [facility] Erythrocyte distribution wid th standard deviationOrdered By: ED PROVIDER on 04-04-2025 Erythrocyte distribution width (RBC) [Ratio] 50.3 fl High 35.1-43.9 [facility] Glomerular filtration rate ( GFR) estimation/1.73 sq m using serum, plasma, or whole bOrdered By: Imani Knight on 04-04-2025 GFR/1.73 sq M.predicted among non-blacks MDRD (S/P/Bld) [Vol rate/Area] 113 mL/min/{1.73_m2} >60 [facility] Comment on above: mL/min/1.73m2 CKD-EP I Creatinine Equation (2020) Hematocrit Auto (Bld) [Volum e fraction]Ordered By: ED PROVIDER on 04-04-2025 Hematocrit (Bld) [Volume fraction] 40.3 % 37-47 [facility] Hemoglobin measurementOrdere d By: ED PROVIDER on 04-04-2025 Hemoglobin (Bld) [Mass/Vol] 14.3 g/dL 12.0-15.0 [facility] Immature granulocytes/100 WB C Auto (Bld)Ordered By: ED PROVIDER on 04-04-2025 Immature granulocytes/100 WBC (Bld) 0.300 % 0.0-0.9 [facility] Comment on above: IG% - Immature Granu locytes (promyelocytes, myelocytes and metamyelocytes) > 1% indicates that a LEFT SHIFT is Present. L499.0042on 04-04-2025 Trop T High Sen < 6 Normal <=14 [facility] Comment on above: Performed By: #### L 500.4100, L500.4050 #### [facility] [address] [place], [address] L499.0043on 04-04-2025 Trop T High Sen Normal <=14 [facility] Comment on above: Result Comment: CHUY ENT DISCHARGED Performed By: #### L 499.0043 #### [facility] [address] [place], [address] L501.4021on 04-04-2025 Trop T High Sen < 6 Normal <=14 [facility] Comment on above: Performed By: #### L 500.2500, L100.0100, L501.5425, L300.8000, L501.5200, L700.6800 #### [facility] [address] [place], [address] Laboratory - Chemistry and C hemistry - challengeOrdered By: Imani Knight on 04-04-2025 AST [Catalytic activity/Vol] 75 U/L High <32 [facility] Lipaseon 04-04-2025 Lipase [Catalytic activity/Vol] 26 U/L Normal 13-75 [facility] Comment on above: Result Comment: Plea se note: LIPASE revised reference range effective 23. New Lipase methodology. Expected to produce lower values than the previous assay method. NEW Reference Range: 13 - 75 U/L Performed By: #### L 500.4100, L500.4050 #### [facility] [address] [place], [address] Lipase measurementOrdered By : Imani Knight on 04-04-2025 Lipase [Catalytic activity/Vol] 26 U/L 13-75 [facility] Comment on above: Please note:LIPASE r evised reference range effective 23. New Lipase methodology. Expected to produce lower values than the previous assay method. NEW Reference Range: 13 - 75 U/L Liver Profileon 04-04-2025 Albumin [Mass/Vol] 4.1 g/dL Normal 3.5-5.0 [facility] Comment on above: Performed By: #### L 500.4100, L500.4050 #### [facility] [address] [place], [address] ALK PHOS 91 U/L Normal 35-104 [facility] Comment on above: Performed By: #### L 500.4100, L500.4050 #### [facility] [address] [place], [address] ALT [Catalytic activity/Vol] 44 U/L High <=34 [facility] Comment on above: Performed By: #### L 500.4100, L500.4050 #### [facility] [address] [place], [address] AST [Catalytic activity/Vol] 75 U/L High <=31 [facility] Comment on above: Performed By: #### L 500.4100, L500.4050 #### [facility] [address] [place], [address] Bilirubin [Mass/Vol] 1.26 mg/dL Normal 0.00-1.30 [facility] Comment on above: Performed By: #### L 500.4100, L500.4050 #### [facility] [address] [place], [address] Bilirubin.direct [Mass/Vol] 0.67 mg/dL High 0.00-0.30 [facility] Comment on above: Performed By: #### L 500.4100, L500.4050 #### [facility] [address] [place] [place], [address] Globulin (S) [Mass/Vol] 3.3 g/dL Normal 2.2-4.2 [facility] Comment on above: Performed By: #### L 500.4100, L500.4050 #### [facility] [address] [place], [address] T PROT 7.3 g/dL Normal 5.9-8.4 [facility] Comment on above: Performed By: #### L 500.4100, L500.4050 #### [facility] [address] [place], [address] MCV (mean corpuscular volume ) determinationOrdered By: ED PROVIDER on 04-04-2025 MCV (RBC) [Entitic vol] 99.8 fL High 81-99 [facility] Magnesiumon 04-04-2025 Magnesium [Mass/Vol] 0.6 mg/dL Invalid Interpretation Code 1.5-2.2 [facility] Comment on above: Result Comment: Crit ical Result(s) Called at: 04/04/2025-12:09 by: Ru Null to Meredith Fairchild.??Results read back by same. Performed By: #### L 500.4100, L500.4050 #### [facility] [address] [place], [place], [address] Magnesium measurement (mass/ volume)Ordered By: Imani Knight on 04-04-2025 Magnesium (Unsp spec) [Mass/Vol] 0.6 mg/dL Low 1.5-2.2 [facility] Comment on above: Critical Result(s) C alled at: 04/04/2025-12:09 by: Ru Null to Meredith Fairchild. Results read back by same. Mean corpuscular hemoglobin (MCH) determinationOrdered By: ED PROVIDER on 04-04-2025 MCH (RBC) [Entitic mass] 35.4 pg High 27.0-32.0 [facility] Mean corpuscular hemoglobin concentration (MCHC) determinationOrdered By: ED PROVIDER on 04-04-2025 MCHC (RBC) [Mass/Vol] 35.5 g/dL 32-36 [facility] Mean platelet volume determi nationOrdered By: ED PROVIDER on 04-04-2025 Platelet mean volume (Bld) [Entitic vol] 10.0 fL 6.2-12.0 [facility] Monocyte percentageOrdered B y: ED PROVIDER on 04-04-2025 Monocytes/100 WBC (Bld) 7.8 % 0-10 [facility] Neutrophil percentageOrdered By: ED PROVIDER on 04-04-2025 Neutrophils/100 WBC (Bld) 77.0 % High 47-70 [facility] Nucleated red blood cell per centageOrdered By: ED PROVIDER on 04-04-2025 Nucleated RBC/100 WBC (Bld) [Ratio] 0.2 % 0-5 [facility] Platelet countOrdered By: ED PROVIDER on 04-04-2025 Platelets (Bld) [#/Vol] 186 10*3/uL 150-450 [facility] Potassium measurement (mass/ volume)Ordered By: Imani Knight on 04-04-2025 Potassium (Unsp spec) [Mass/Vol] 2.9 mmol/L Low 3.3-5.1 [facility] RBC Auto (Bld) [#/Vol]Ordere d By: ED PROVIDER on 04-04-2025 RBC (Bld) [#/Vol] 4.04 10*6/uL Low 4.2-5.4 [facility] Serum creatinine measurement (mass/volume)Ordered By: Imani Knight on 04-04-2025 Creatinine [Mass/Vol] 0.55 mg/dL Low 0.70-1.20 [facility] Serum globulin measurementOr dered By: Imani Knight on 04-04-2025 Globulin (S) [Mass/Vol] 3.3 g/dL 2.2-4.2 [facility] Serum glucose measurement (m ass/volume)Ordered By: Imani Knight on 04-04-2025 Glucose [Mass/Vol] 131 mg/dL High 70-99 [facility] Serum or plasma alanine wilkerson otransferase (ALT) measurementOrdered By: Imani Knight on 04-04-2025 ALT [Catalytic activity/Vol] 44 U/L High <35 [facility] Serum or plasma albumin alphonso urement (mass/volume)Ordered By: Imani Knight on 04-04-2025 Albumin [Mass/Vol] 4.1 g/dL 3.5-5.0 [facility] Serum or plasma alkaline trinity sphatase measurementOrdered By: Imani Knight on 04-04-2025 ALP [Catalytic activity/Vol] 91 U/L 35-104 [facility] Serum or plasma calcium alphonso urement (mass/volume)Ordered By: Imani Knight on 04-04-2025 Calcium [Mass/Vol] 8.4 mg/dL 7.6-11.0 [facility] Serum or plasma urea nitroge n measurement (mass/volume)Ordered By: Imani Knight on 04-04-2025 Urea nitrogen [Mass/Vol] 5 mg/dL 4-19 [facility] Sodium levelOrdered By: Radha Knight on 04-04-2025 Sodium [Moles/Vol] 139 mmol/L 133-145 [facility] Total proteinOrdered By: Gwen Knight on 04-04-2025 Protein [Mass/Vol] 7.3 g/dL 5.9-8.4 [facility] Troponin T.cardiac [Mass/vol ume] in Serum or Plasma by High sensitivity methodOrdered By: Imani Knight on 04-04-2025 Troponin T.cardiac High sensitivity method [Mass/Vol] < 6 ng/L <14 [facility] Troponin T.cardiac High sensitivity method [Mass/Vol] < 6 ng/L <14 [facility] White blood cell (WBC) count Ordered By: ED PROVIDER on 04-04-2025 WBC (Bld) [#/Vol] 8.8 10*3/uL 4.4-11.0 [facility] 12 Lead EKGon 11-12-2024 12 Lead EKG [facility] [address] [place] [address] 12 Lead EKG 11/12/24 1033 MR#: [id number] Acct: [id number] Name: JOSEPH RINCON Rep #: [id number] : 1975 49 From: Jose Taylor MD Attending Dr: Status: DEP ER Ordering Dr: Rober Concepcion MD Date: 11/12/24 Location: ED Sex: F C Admitted: Test Reason : CP Blood Pressure : */* mmHG Vent. Rate : 95 BPM Atrial Rate : 95 BPM P-R Int : 122 ms QRS Dur : 76 ms QT Int : 358 ms P-R-T Axes : 64 53 61 degrees QTcB Int : 449 ms Poor data quality, interpretation may be adversely affected Normal sinus rhythm Normal ECG Confirmed by STEFFANY LEBLANC, JOSE ([id number]), primer expeditor and drier JAVID JAMES ([id number]) on 11/15/2024 6:08:07 AM Referred By: AR/RU Confirmed By: JOSE TAYLOR MD 11/15/24 0608 Date Jose Taylor MD CC: Dr. Rober Concepcion MD; Dr. Abisai Haley MD Signed Normal [facility] Basic Metabolic Profile (BMP )on 11-12-2024 BUN/CRE 23.8 RATIO High 10-20 [facility] Comment on above: Order Comment: 1 Y Performed By: #### L 500.2500, L100.0100, L501.5425, L300.8000, L501.5200, L700.6800 #### [facility] [address] [place], [address] CA,Total 8.1 mg/dL Low 8.5-10.1 [facility] Comment on above: Order Comment: 1 Y Performed By: #### L 500.2500, L100.0100, L501.5425, L300.8000, L501.5200, L700.6800 #### [facility] [address] [place], [address] Chloride [Moles/Vol] 99 mmol/L Normal 98-107 [facility] Comment on above: Order Comment: 1 Y Performed By: #### L 500.2500, L100.0100, L501.5425, L300.8000, L501.5200, L700.6800 #### [facility] [address] [place], [address] CO2 [Moles/Vol] 27.0 mmol/L Normal 21.0-32.0 [facility] Comment on above: Order Comment: 1 Y Performed By: #### L 500.2500, L100.0100, L501.5425, L300.8000, L501.5200, L700.6800 #### [facility] [address] [place], [address] Creatinine [Mass/Vol] 0.59 mg/dL Normal 0.55-1.02 [facility] Comment on above: Order Comment: 1 Y Result Comment: The validity of the calculated GFR GFRAA in patients over 70 years has not been determined. Clinical correlation is essential. Performed By: #### L 500.2500, L100.0100, L501.5425, L300.8000, L501.5200, L700.6800 #### [facility] [address] [place], [address] ECRCL 112.29 ml/min Normal [facility] Comment on above: Order Comment: 1 Y Performed By: #### L 500.2500, L100.0100, L501.5425, L300.8000, L501.5200, L700.6800 #### [facility] [address] [place], [address] EST GFR - AA 140 mL/min Normal >60 [facility] Comment on above: Order Comment: 1 Y Result Comment: Afri can Pakistani GFR Calc Performed By: #### L 500.2500, L100.0100, L501.5425, L300.8000, L501.5200, L700.6800 #### [facility] [address] [place], [address] GAP 9 Normal 5-15 [facility] Comment on above: Order Comment: 1 Y Performed By: #### L 500.2500, L100.0100, L501.5425, L300.8000, L501.5200, L700.6800 #### [facility] [address] [place], [address] GFR/1.73 sq M.predicted among non-blacks MDRD (S/P/Bld) [Vol rate/Area] 116 mL/min/{1.73_m2} Normal >60 [facility] Comment on above: Order Comment: 1 Y Result Comment: Non- GFR Calc Performed By: #### L 500.2500, L100.0100, L501.5425, L300.8000, L501.5200, L700.6800 #### [facility] [address] [place], [address] Glucose [Mass/Vol] 131 mg/dL High 74-106 [facility] Comment on above: Order Comment: 1 Y Result Comment: Fast ing Glucose result greater than or equal to 126 mg/dL suggests DIABETES MELLITUS per A.D.A. criteria. Performed By: #### L 500.2500, L100.0100, L501.5425, L300.8000, L501.5200, L700.6800 #### [facility] [address] [place], [address] Potassium [Moles/Vol] 3.7 mmol/L Normal 3.5-5.1 [facility] Comment on above: Order Comment: 1 Y Performed By: #### L 500.2500, L100.0100, L501.5425, L300.8000, L501.5200, L700.6800 #### [facility] [address] [place], [address] Sodium [Moles/Vol] 135 mmol/L Low 136-145 [facility] Comment on above: Order Comment: 1 Y Performed By: #### L 500.2500, L100.0100, L501.5425, L300.8000, L501.5200, L700.6800 #### [facility] [address] [place], [address] Urea nitrogen [Mass/Vol] 14 mg/dL Normal 7-18 [facility] Comment on above: Order Comment: 1 Y Performed By: #### L 500.2500, L100.0100, L501.5425, L300.8000, L501.5200, L700.6800 #### [facility] [address] [place], [address] CBC W/Diff, Automatedon 12- Absolute Lymph 1.29 X10 3/uL Normal 0.83-4.51 [facility] Comment on above: Performed By: #### L 500.2500, L100.0100, L501.5425, L300.8000, L501.5200, L700.6800 #### [facility] [address] [place], [address] Absolute Neut 6.5 X10 3/uL Normal 2.0-7.7 [facility] Comment on above: Performed By: #### L 500.2500, L100.0100, L501.5425, L300.8000, L501.5200, L700.6800 #### [facility] [address] [place], [address] Basophils/100 WBC (Bld) 0.5 % Normal 0-1 [facility] Comment on above: Performed By: #### L 500.2500, L100.0100, L501.5425, L300.8000, L501.5200, L700.6800 #### [facility] [address] [place], [address] Eosinophils/100 WBC (Bld) 1.2 % Normal 0-5 [facility] Comment on above: Performed By: #### L 500.2500, L100.0100, L501.5425, L300.8000, L501.5200, L700.6800 #### [facility] [address] [place], [address] Erythrocyte distribution width (RBC) [Ratio] 13.1 % Normal 11.6-14.6 [facility] Comment on above: Performed By: #### L 500.2500, L100.0100, L501.5425, L300.8000, L501.5200, L700.6800 #### [facility] [address] [place], [address] Hematocrit (Bld) [Volume fraction] 37.7 % Normal 37-47 [facility] Comment on above: Performed By: #### L 500.2500, L100.0100, L501.5425, L300.8000, L501.5200, L700.6800 #### [facility] [address] [place], [address] Hemoglobin (Bld) [Mass/Vol] 12.9 g/dL Normal 12.0-15.0 [facility] Comment on above: Performed By: #### L 500.2500, L100.0100, L501.5425, L300.8000, L501.5200, L700.6800 #### [facility] [address] [place], [address] IG% 0.200 Normal 0.0-0.9 [facility] Comment on above: Result Comment: IG% - Immature Granulocytes (promyelocytes, myelocytes and metamyelocytes) > 1% indicates that a LEFT SHIFT is Present. Performed By: #### L 500.2500, L100.0100, L501.5425, L300.8000, L501.5200, L700.6800 #### [facility] [address] [place], [address] Lymphocytes/100 WBC (Bld) 15.1 % Low 19-41 [facility] Comment on above: Performed By: #### L 500.2500, L100.0100, L501.5425, L300.8000, L501.5200, L700.6800 #### [facility] [address] [place], [address] MCH (RBC) [Entitic mass] 33.7 pg High 27.0-32.0 [facility] Comment on above: Performed By: #### L 500.2500, L100.0100, L501.5425, L300.8000, L501.5200, L700.6800 #### [facility] [address] [place], [address] MCHC (RBC) [Mass/Vol] 34.2 g/dL Normal 32-36 [facility] Comment on above: Performed By: #### L 500.2500, L100.0100, L501.5425, L300.8000, L501.5200, L700.6800 #### [facility] [address] [place], [address] MCV (RBC) [Entitic vol] 98.4 fL Normal 81-99 [facility] Comment on above: Performed By: #### L 500.2500, L100.0100, L501.5425, L300.8000, L501.5200, L700.6800 #### [facility] [address] [place], [address] Monocytes/100 WBC (Bld) 6.9 % Normal 0-10 [facility] Comment on above: Performed By: #### L 500.2500, L100.0100, L501.5425, L300.8000, L501.5200, L700.6800 #### [facility] [address] [place], [address] Neutrophils/100 WBC (Bld) 76.1 % High 47-70 [facility] Comment on above: Performed By: #### L 500.2500, L100.0100, L501.5425, L300.8000, L501.5200, L700.6800 #### [facility] [address] [place], [address] Nucleated RBC (Bld) [#/Vol] 0 10*3/uL Normal 0-5 [facility] Comment on above: Performed By: #### L 500.2500, L100.0100, L501.5425, L300.8000, L501.5200, L700.6800 #### [facility] [address] [place], [address] Platelet mean volume (Bld) [Entitic vol] 9.2 fL Normal 6.2-12.0 [facility] Comment on above: Performed By: #### L 500.2500, L100.0100, L501.5425, L300.8000, L501.5200, L700.6800 #### [facility] [address] [place], [address] Platelets (Bld) [#/Vol] 211 10*3/uL Normal 150-450 [facility] Comment on above: Performed By: #### L 500.2500, L100.0100, L501.5425, L300.8000, L501.5200, L700.6800 #### [facility] [address] [place], [address] RBC (Bld) [#/Vol] 3.83 10*6/uL Low 4.2-5.4 [facility] Comment on above: Performed By: #### L 500.2500, L100.0100, L501.5425, L300.8000, L501.5200, L700.6800 #### [facility] [address] [place], [address] RDW SD 46.6 fl High 35.1-43.9 [facility] Comment on above: Performed By: #### L 500.2500, L100.0100, L501.5425, L300.8000, L501.5200, L700.6800 #### [facility] [address] [place], [address] WBC (Bld) [#/Vol] 8.6 10*3/uL Normal 4.4-11.0 [facility] Comment on above: Performed By: #### L 500.2500, L100.0100, L501.5425, L300.8000, L501.5200, L700.6800 #### [facility] [address] [place], [address] CTA Chest W/WO Contrast CTA Chest W/WO Contrast [facility] [address] [place] [address] CTA Chest W/WO Contrast MR#: [id number] Acct: [id number] Name: JOSEPH RINCON Rep #: [id number] : 1975 F 49 From: Laurie Yates MD PCP: Dr. Abisai Haley MD Status: REG ER Study: CTA Chest W/WO Contrast Date of Exam: 11/12/24 Exam# [id number] Ordering Dr: Rober Concepcion MD [id number] STUDY: CTA CHEST REASON FOR EXAM: Female, 49 years old. Elevated d dimer RADIATION DOSAGE (If Supplied By Facility): CTDIvol = ( 10.14 ) mGy, DLP = ( 513.93 ) mGycm TECHNIQUE: The examination was performed with the intravenous administration of IV 75mL Isovue-370. Post-processing of the angiographic images was performed, with multiplanar reformation and 3D reconstruction. The protocol utilizes one or more of the following dose reduction techniques: automated exposure control, adjustment of mA and/or kV according to patient size,and/or use of iterative reconstruction technique. COMPARISON: CT of the abdomen and pelvis dated July 11, 2024 FINDINGS: Normal enhancement of the main pulmonary artery and right and left pulmonary arteries. There is suboptimal enhancement of the bilateral peripheral pulmonary arteries. There is no gross demonstrated pulmonary embolism. Normal thoracic aorta and visualized great vessels. There is no demonstrated aortic dissection. Normal heart and pericardium. No coronary artery calcifications are visualized. Normal mediastinum. Normal hilar regions. Normal visualized trachea and bronchi. There is no new focal consolidation. There is stable minimal basilar atelectasis and/or scarring within the right middle lobe. Normal chest wall structures. Normal osseous structures. The limited images of the upper abdomen demonstrate a diffusely low in attenuation liver consistent with fatty infiltration. CT/CTA Chest W/WO Contrast IMPRESSION: No demonstrated pulmonary embolism or arterial dissection. No acute cardiopulmonary process. Fatty infiltration of the liver. Electronically Signed: Laurie Yates MD at 12:23 EST , CC: Dr. Rober Concepcion MD; Dr. Abisai Haley MD Sericulture Teacher: Signed Normal [facility] Chest 1 View (Portable)on Chest 1 View (Portable) [facility] Imaging Services [address] [place], [place] [address] Chest 1 View (Portable) MR#: [id number] Acct: [id number] Name: JOSEPH RINCON Rep #: [id number] : 1975 F 49 From: Laurie Yates MD PCP: Dr. Abisai Haley MD Status: REG ER Study: Chest 1 View (Portable) Date of Exam: 11/12/24 Exam# [id number] Ordering Dr: Rober Concepcion MD [id number] INDICATION: chest pain EXAMINATION/TECHNIQU E: X-RAY - XR Chest 1 View COMPARISON: October 10, 2023 and January 24, 2024 ____ FINDINGS: LINES/DEVICES: None. LUNGS: No consolidation, edema or effusion. No pneumothorax. MEDIASTINUM AND CARDIOVASCULAR STRUCTURES: Cardiac silhouette not enlarged. Central airways and mediastinal contour are unremarkable. BONES AND SOFT TISSUES: Unremarkable. RAD/Chest 1 View (Portable) IMPRESSION: No radiographic evidence of acute cardiopulmonary disease. Electronically Signed: Laurie Yates MD at 11:26 EST , CC: Dr. Rober Concepcion MD; Dr. Abisai Haley MD Sericulture Teacher: Signed Normal [facility] D-Dimer Quantitative (DVT/PE )on 11-12-2024 D-DIMER QUANT 0.74 FEU/ug/m Invalid Interpretation Code 0.27-0.49 [facility] Comment on above: Order Comment: CRITI FLORECITA VALUE CALLED TO don 11/12/24 1114 Priti Bret. RESULTS READ BACK BY same. Result Comment: D-Di clive ELEVATED (>0.49): Additional studies and clinical assessments are indicated to conclude diagnosis of: Deep Vein Thrombosis (DVT) or Pulmonary Embolism (PE) Performed By: #### L 500.2500, L100.0100, L501.5425, L300.8000, L501.5200, L700.6800 #### [facility] [address] [facility], [address] Emergency Department Summary on 11-12-2024 Emergency Department Summary [facility] Medical Records Department [address] [place] [address] Emergency Department Summary 11/12/24 MR#: [id number] Acct: [id number] Name: JOSEPH RINCON Rep #: [id number] : 1975 49 From: Rober Concepcion MD PCP: Dr. Abisai Haley MD Status:REG ER Location: ED HPI History of Present Illness Chief Complaint: Chest Pain Narrative Narrative: 49-year-old female states that she had a non-STEMI last year, presents with chest pain and left arm numbness that began yesterday evening. Has been intermittent. However, she states that she awoke this morning with shortness of breath. She put on her pulse ox and it was 98%. She feels like she cannot get enough air. However, she denies any DVT or PE risk factors, no swelling of the legs. Said a cough. She became nauseated and vomited once today without any blood in her emesis. Additionally, she states she had a little diarrhea. Over the last few days. She states she has not been feeling well, but today was worse. She no longer takes aspirin on a daily basis secondary to bruising, and states that her fret saw operator told her that she did not need to take it any longer. However, she continues to be a smoker. She presents mainly because of the chest pressure that is more central in her chest, shortness of breath, and rare feelings of sharp stabbing pain. She states that those come and bursts. [facility] Medical History Strain of left foot Plantar fasciitis of left foot Acute otitis media, right Contact with or exposure to other viral diseases URI (upper respiratory infection) Alcohol abuse GERD (gastroesophageal reflux disease) CPAP (continuous positive airway pressure) dependence Smoker COPD (chronic obstructive pulmonary disease) Myocardial infarct Seizures History of left heart catheterization (LHC) ( 11/19/22) Sleep apnea Pancreatitis Acute lumbar myofascial strain Strain of left hip Depression Anxiety Diabetes HTN (hypertension) Type 2 diabetes mellitus Home Medications ???Medication ???Instructions ???Recorded ???Last Taken ???Type metformin 500 mg tablet 500 ea PO BID DIABETES 10/31/22 11/17/22 21:30 History aspirin 81 mg chewable tablet 81 mg PO DAILY@0800 #30 tabs 11/19/22 Unknown Rx bupropion HCl 150 mg 24 hr tablet, 150 mg PO DAILY 01/21/23 Unknown History extended release citalopram 20 mg tablet 20 mg PO DAILY 03/22/23 Unknown History budesonide-formotero l HFA 80 1 puff inhalation BID 04/09/23 Unknown History mcg-4.5 mcg/actuation aerosol inhaler (Symbicort) montelukast 10 mg tablet 10 mg PO DAILY 04/09/23 Unknown History (Singulair) pantoprazole 40 mg tablet,delayed 40 mg PO BID 05/04/23 Unknown History release cholecalciferol (vitamin D3) 50 50 mcg PO DAILY 08/25/23 Unknown History mcg (2,000 unit) capsule magnesium 250 mg tablet 250 mg PO DAILY 08/25/23 Unknown History omega-3 fatty acids 1,000 mg 1,000 mg PO DAILY 08/25/23 Unknown History capsule phenazopyridine 95 mg tablet 95 mg PO BID 08/25/23 Unknown History atorvastatin 40 mg tablet 40 mg PO DAILY #30 tabs 04/18/24 Unknown Rx albuterol sulfate 90 mcg/actuation 2 puff inhalation Q6H PRN 04/27/24 Unknown Rx aerosol inhaler shortness of breath or wheezing #8.5 grams levocetirizine 5 mg tablet 5 mg PO DAILY 08/22/24 Unknown History lisinopril 20 mg tablet 20 mg PO DAILY BLOOD PRESSURE #30 08/22/24 Unknown Rx tabs varenicline 1 mg tablet (Chantix) 1 mg PO BID 08/22/24 Unknown History meloxicam 15 mg tablet 15 mg PO QDAY PRN pain #30 tabs 08/28/24 Unknown Rx tizanidine 4 mg tablet 4 mg PO BID PRN 08/28/24 Unknown History oxycodone-acetaminop hen 5 mg-325 1 tab PO BID PRN 10/09/24 Unknown History mg tablet empagliflozin 25 mg tablet 25 mg PO DAILY 11/12/24 Unknown History (Jardiance) metoprolol succinate 25 mg 25 mg PO DAILY 11/12/24 Unknown History tablet,extended release 24 hr Allergy/AdvReac Type Severity Reaction Status Date / Time No Known Allergies Allergy Verified 11/12/24 10:26 Family History Grandfather CVA (cerebral vascular accident) Diabetes Mother Cancer Father Hypertension Grandmother Hypertension Diabetes Surgical History History of cholecystectomy H/O tooth extraction plantar fasciitis release Social History household members: spouse and children housing: house pets and animals: Yes Smoking Status: Current some day smoker tobacco type: cigarettes alcohol intake: current alcohol intake frequency: a few times a month Alcohol type: hard liquor substance use type: does not use ROS ROS ED ROS Narrative Constitutional: No fe (more content not included)... Normal [facility] L501.4020on 11-12-2024 TROPONIN-I HS 6 pg/mL Normal 3.0-54.0 [facility] Comment on above: Result Comment: Plea se Note: New Test Units and Gender Specific Reference Ranges. For more information see Policy Stat Procedure [place] High Sensitivity Troponin (TNIH) and attachments. Performed By: #### L 501.4020 #### [facility] [address] [place], [address] L501.5425on 11-12-2024 TROPONIN-I HS 6 pg/mL Normal 3.0-54.0 [facility] Comment on above: Order Comment: 1 Y Result Comment: Lucie schultz Note: New Test Units and Gender Specific Reference Ranges. For more information see Policy Stat Procedure [place] High Sensitivity Troponin (TNIH) and attachments. Performed By: #### L 500.2500, L100.0100, L501.5425, L300.8000, L501.5200, L700.6800 #### [facility] [address] [place], [address] Magnesiumon 11-12-2024 Magnesium [Mass/Vol] 1.1 mg/dL Low 1.6-2.6 [facility] Comment on above: Order Comment: 1 Y Performed By: #### L 500.2500, L100.0100, L501.5425, L300.8000, L501.5200, L700.6800 #### [facility] [address] [place], [place], [address] ,Serum,hCG Quali.on 11-12-2024 HCG, SERUM QUAL Negative Normal [facility] Comment on above: Performed By: #### L 500.2500, L100.0100, L501.5425, L300.8000, L501.5200, L700.6800 #### [facility] [address] [place], [place], [address] Orthopedic Visit Reporton Orthopedic Visit Report [facility] [address] [place] [address] [address] [place] [address] OFFICE VISIT Date of Service: 10/09/24 MR#: [id number] Acct: [id number] Name: JOSEPH RINCON Rep #: [id number] : 1975 Provider: Dr. Lorenzo Stewart MD Age/Sex: 49/F Location: [facility] [place] Status: Signed Intake Vital Signs 08/28/24 13:29 Height 5 ft 4 in Weight: 162 lb 8 oz BMI 27.8 Intake Visit Reasons: LUMBAR SPINE Accompanied by: Self Is patient in pain?: Yes Pain scale (1-10): 6 Allergies No Known Allergies Allergy (Verified 10/09/24 14:31) Medications ???Medication ???Instructions ???Recorded ???Confirmed ???Type metformin 500 mg tablet 500 ea PO BID DIABETES 10/31/22 10/09/24 History aspirin 81 mg chewable tablet 81 mg PO DAILY@0800 #30 tabs 11/19/22 10/09/24 Rx bupropion HCl 150 mg 24 hr tablet, 150 mg PO DAILY 01/21/23 10/09/24 History extended release citalopram 20 mg tablet 20 mg PO DAILY 03/22/23 10/09/24 History budesonide-formotero l HFA 80 1 puff inhalation BID 04/09/23 10/09/24 History mcg-4.5 mcg/actuation aerosol inhaler (Symbicort) montelukast 10 mg tablet 10 mg PO DAILY 04/09/23 10/09/24 History (Singulair) pantoprazole 40 mg tablet,delayed 40 mg PO BID 05/04/23 10/09/24 History release metoprolol succinate 50 mg 25 mg PO DAILY BLOOD PRESSURE 05/20/23 10/09/24 History tablet,extended release 24 hr cholecalciferol (vitamin D3) 50 50 mcg PO DAILY 08/25/23 10/09/24 History mcg (2,000 unit) capsule magnesium 250 mg tablet 250 mg PO DAILY 08/25/23 10/09/24 History omega-3 fatty acids 1,000 mg 1,000 mg PO DAILY 08/25/23 10/09/24 History capsule phenazopyridine 95 mg tablet 95 mg PO BID 08/25/23 10/09/24 History atorvastatin 40 mg tablet 40 mg PO DAILY #30 tabs 04/18/24 10/09/24 Rx albuterol sulfate 90 mcg/actuation 2 puff inhalation Q6H PRN 04/27/24 10/09/24 Rx aerosol inhaler shortness of breath or wheezing #8.5 grams levocetirizine 5 mg tablet 5 mg PO DAILY 08/22/24 10/09/24 History lisinopril 20 mg tablet 20 mg PO DAILY BLOOD PRESSURE #30 08/22/24 10/09/24 Rx tabs varenicline 1 mg tablet (Chantix) 1 mg PO BID 08/22/24 10/09/24 History empagliflozin 10 mg tablet 25 mg PO DAILY 08/28/24 10/09/24 History (Jardiance) meloxicam 15 mg tablet 15 mg PO QDAY PRN pain #30 tabs 08/28/24 10/09/24 Rx tizanidine 4 mg tablet 4 mg PO BID PRN 08/28/24 10/09/24 History oxycodone-acetaminop hen 5 mg-325 1 tab PO BID PRN 10/09/24 10/09/24 History mg tablet PFSH Medical History Strain of left foot Plantar fasciitis of left foot Acute otitis media, right Contact with or exposure to other viral diseases URI (upper respiratory infection) Alcohol abuse GERD (gastroesophageal reflux disease) CPAP (continuous positive airway pressure) dependence Smoker COPD (chronic obstructive pulmonary disease) Myocardial infarct Seizures History of left heart catheterization (LHC) ( 11/19/22) Sleep apnea Pancreatitis Acute lumbar myofascial strain Strain of left hip Depression Anxiety Diabetes HTN (hypertension) Type 2 diabetes mellitus Surgical History History of cholecystectomy H/O tooth extraction plantar fasciitis release Family History Grandfather CVA (cerebral vascular accident) Diabetes Mother Cancer Father Hypertension Grandmother Hypertension Diabetes Social History household members: spouse and children housing: house pets and animals: Yes Smoking Status: Current some day smoker tobacco type: cigarettes alcohol intake: current alcohol intake frequency: a few times a month Alcohol type: hard liquor substance use type: does not use HPI LUMBAR SPINE Details: This documentation accurately reflects the service provided and the decisions made by me, Dr. Lorenzo Stewart MD 10/09/24 6095. Part of today???s visit was documented by Mona URIBE, acting as scribe. JOSEPH RINCON is a 49 year old F here today for MRI review of her lumbar spine. She states that her pain is the same although she does have some bad days where her pain is worse. She had bilateral SI injections with Dr. Mckeon and says that the pain improved for a couple of days. She has an epidural injection scheduled for tomorrow with Dr. Mckeon. Pain is worse on her left side. Patient has diabetes, last a1c was 7.4. HPI from 08/28/24: JOSEPH RINCON is a 49 year old F here today for Lumbar Pain. Patient states it has been bothering her for at least 3 months. Patient denies any injury to her back. Patient Lower lumbar on both sides. Patient also has left hip pain. Patient states if she sits fo (more content not included)... Normal [facility] Spine Lumbar (Routine)on Spine Lumbar (Routine) [facility] Imaging Services [address] [place] [address] Spine Lumbar (Routine) MR#: [id number] Acct: [id number] Name: JOSEPH RINCON Rep #: [id number] : 1975 F 49 From: Noe Zhang PCP: Dr. Abisai Haley MD Status: REG CLI Study: Spine Lumbar (Routine) Date of Exam: 09/25/24 Exam# [id number] Ordering Dr: Ivon Sams [id number] EXAM: MR LUMBAR SPINE WITHOUT INTRAVENOUS CONTRAST CLINICAL INDICATION: pain TECHNIQUE: Multiplanar and multisequence MR images of the lumbar spine without intravenous contrast. COMPARISON: Lumbar spine x-ray 08/28/2024. FINDINGS: VERTEBRAE: See below. SPINAL CORD: Unremarkable. Normal position and signal intensity of the conus medullaris. SOFT TISSUES: Unremarkable. DISCS/SPINAL CANAL/NEURAL FORAMINA: L1-L2: Unremarkable. Normal disc height and morphology. Normal spinal canal and lateral recesses. Normal neuroforamina. L2-L3: Unremarkable. Normal disc height and morphology. Normal spinal canal and lateral recesses. Normal neuroforamina. L3-L4: Unremarkable. Normal disc height and morphology. Normal spinal canal and lateral recesses. Normal neuroforamina. L4-L5: Mild generalized disc bulge. Mild bilateral facet arthropathy. No spinal canal or foraminal stenosis. L5-S1: Mild generalized disc bulge. Mild bilateral facet arthropathy. No spinal canal or foraminal stenosis. MRI/Spine Lumbar (Routine) IMPRESSION: 1. L4-L5 mild generalized disc bulge without spinal canal or foraminal stenosis. Mild bilateral facet arthropathy. 2. L5-S1 mild generalized disc bulge without spinal canal or foraminal stenosis. Mild bilateral facet arthropathy. Electronically Signed: Noe Braden MD at 22:29 EDT , CC: LUIS Oscar; Dr. Abisai Haley MD Sericulture Teacher: Signed Normal [facility] L/S Spine Min 4 Viewson 08-01 L/S Spine Min 4 Views [facility] [address] [place] [address] L/S Spine Min 4 Views MR#: [id number] Acct: [id number] Name: JOSEPH RINCON Rep #: [id number] : 1975 F 49 From: Servando Mccloud MD PCP: Dr. Abisai Haley MD Status: DEP AMB Study: L/S Spine Min 4 Views Date of Exam: 08/28/24 Exam# [id number] Ordering Dr: Ivon Sams [id number] STUDY: X-RAY - LUMBAR SPINE REASON FOR EXAM: Female, 49 years old. low back pain -- Please do upright AP, LAT, flex/extension TECHNIQUE: 4 view(s) of the lumbar spine were obtained. COMPARISON: None FINDINGS: Normal lumbar lordosis. There is no substantial scoliosis. There is a normal alignment of the vertebrae. Normal vertebral bodies and endplates. Normal disc space heights. There is no evidence for gross instability upon flexion or extension Diffuse vascular calcification noted without evidence for aneurysmal dilatation. Surgical clips in the right upper quadrant likely due to cholecystectomy. RAD/L/S Spine Min 4 Views IMPRESSION: Normal x-ray examination of the lumbar spine. Electronically Signed: Servando Mccloud MD at 23:00 EDT Reading Location ID and State: [facility] / [place] Tel , Service support , CC: LUIS Oscar; Dr. Abisai Haley MD Sericulture Teacher: Signed Normal [facility] Orthopedic Visit Reporton Orthopedic Visit Report [facility] [address] [place] [address] [address] [place] [address] OFFICE VISIT Date of Service: 08/28/24 MR#: [id number] Acct: [id number] Name: JOSEPH RINCON Rep #: [id number] : 1975 Provider: LUIS Oscar Age/Sex: 49/F Location: [facility] – [place] Status: Signed Intake Vital Signs 08/22/24 10:03 08/24/24 14:01 08/28/24 13:29 Height 5 ft 4 in 5 ft 4 in 5 ft 4 in Weight: 162 lb 8 oz BMI 27.8 Intake Visit Reasons: LUMBAR SPINE Accompanied by: Self Is patient in pain?: Yes Pain scale (1-10): 6 Allergies No Known Allergies Allergy (Verified 08/28/24 13:29) Medications ???Medication ???Instructions ???Recorded ???Confirmed ???Type metformin 500 mg tablet 500 ea PO BID DIABETES 10/31/22 08/28/24 History aspirin 81 mg chewable tablet 81 mg PO DAILY@0800 #30 tabs 11/19/22 08/28/24 Rx bupropion HCl 150 mg 24 hr tablet, 150 mg PO DAILY 01/21/23 08/28/24 History extended release citalopram 20 mg tablet 20 mg PO DAILY 03/22/23 08/28/24 History budesonide-formotero l HFA 80 1 puff inhalation BID 04/09/23 08/28/24 History mcg-4.5 mcg/actuation aerosol inhaler (Symbicort) montelukast 10 mg tablet 10 mg PO DAILY 04/09/23 08/28/24 History (Singulair) pantoprazole 40 mg tablet,delayed 40 mg PO BID 05/04/23 08/28/24 History release metoprolol succinate 50 mg 25 mg PO DAILY BLOOD PRESSURE 05/20/23 08/28/24 History tablet,extended release 24 hr cholecalciferol (vitamin D3) 50 50 mcg PO DAILY 08/25/23 08/28/24 History mcg (2,000 unit) capsule magnesium 250 mg tablet 250 mg PO DAILY 08/25/23 08/28/24 History omega-3 fatty acids 1,000 mg 1,000 mg PO DAILY 08/25/23 08/28/24 History capsule phenazopyridine 95 mg tablet 95 mg PO BID 08/25/23 08/28/24 History atorvastatin 40 mg tablet 40 mg PO DAILY #30 tabs 04/18/24 08/28/24 Rx albuterol sulfate 90 mcg/actuation 2 puff inhalation Q6H PRN 04/27/24 08/28/24 Rx aerosol inhaler shortness of breath or wheezing #8.5 grams levocetirizine 5 mg tablet 5 mg PO DAILY 08/22/24 08/28/24 History lisinopril 20 mg tablet 20 mg PO DAILY BLOOD PRESSURE #30 08/22/24 08/28/24 Rx tabs varenicline 1 mg tablet (Chantix) 1 mg PO BID 08/22/24 08/28/24 History empagliflozin 10 mg tablet 25 mg PO DAILY 08/28/24 08/28/24 History (Jardiance) meloxicam 15 mg tablet 15 mg PO QDAY PRN pain #30 tabs 08/28/24 08/28/24 Rx tizanidine 4 mg tablet 4 mg PO BID PRN 08/28/24 08/28/24 History PFSH Medical History Strain of left foot Plantar fasciitis of left foot Acute otitis media, right Contact with or exposure to other viral diseases URI (upper respiratory infection) Alcohol abuse GERD (gastroesophageal reflux disease) CPAP (continuous positive airway pressure) dependence Smoker COPD (chronic obstructive pulmonary disease) Myocardial infarct Seizures History of left heart catheterization (LHC) ( 11/19/22) Sleep apnea Pancreatitis Acute lumbar myofascial strain Strain of left hip Depression Anxiety Diabetes HTN (hypertension) Type 2 diabetes mellitus Surgical History History of cholecystectomy H/O tooth extraction plantar fasciitis release Family History Grandfather CVA (cerebral vascular accident) Diabetes Mother Cancer Father Hypertension Grandmother Hypertension Diabetes Social History household members: spouse and children housing: house pets and animals: Yes Smoking Status: Current some day smoker tobacco type: cigarettes alcohol intake: current alcohol intake frequency: a few times a month Alcohol type: hard liquor substance use type: does not use HPI LUMBAR SPINE Details: This documentation accurately reflects the service provided and the decisions made by , LUIS Oscar 08/28/24 1325. Part of today???s visit was documented by Poppy BRIGGS , acting as scribe. JOSEPH RINCON is a 49 year old F here today for Lumbar Pain. Patient states it has been bothering her for at least 3 months. Patient denies any injury to her back. Patient Lower lumbar on both sides. Patient also has left hip pain. Patient states if she sits for to long she will feel pain in her left hip. Patient has no numbness or tinging that goes down her legs. Patient hasn't had injections in her back. Patient went to Physical therapy and they did a evaluation and they couldn't see what was going on so they told her to call her PCP and that she might have to see a specialist field engineer. Patient is taking Tizanidine for pain and she has tried everything OTC. The OTC medication doesn't help and when she went to the ER(07/11/24) they ga (more content not included)... Normal [facility] Cardiology Visit Reporton Cardiology Visit Report [facility] [address] [place] [address] OFFICE VISIT Date of Service: 08/22/24 MR#: [id number] Acct: [id number] Name: JOSEPH RINCON Rep #: [id number] : 1975 Provider: LUIS Celaya Age/Sex: 49/F Location: [facility] – [place].[facility] Status: Signed [facility] History of Present Illness Details: JOSEPH RINCON, is a 49 year old white female who presents to the office today for a cardiovascular follow-up visit. She had presented to [facility] emergency department in October of 2022 with complaints of chest pain, dyspneic and transiently diaphoretic. In the emergency department she was evaluated and noted to be markedly hypertensive.??? A high-sensitivity troponin I level was reported as elevated.??? She had been treated for her concerns of hypertension as well as an acute coronary syndrome. She underwent a cardiac catheterization on 11/19/2022 which demonstrated normal coronary arteries. Her echocardiogram at that time demonstrated an ejection fraction of 65%, and structurally normal valves. She does continue to have atypical chest pain. It is substernal. She does have SOB. She does continue to smoke, she is trying to quit. She does not have any lightheadedness/dizz iness. She does not have any palpitations. Typically her Bp runs around 140 at home. Intake Vital Signs 08/25/23 10:00 07/11/24 11:13 08/22/24 09:58 08/22/24 10:03 Height 5 ft 4 in 5 ft 4 in 5 ft 4 in 5 ft 4 in Weight: 162 lb BMI 27.8 BP 162/94 H Blood Pressure Location Lt brachial Position Sitting Respiration 18 Pulse 96 Pulse Source Monitor Pulse Oximetry (%) 95 Intake Visit Reasons: 1 Y FU Shoes Salesperson Required: No Is patient in pain?: No Allergies No Known Allergies Allergy (Verified 08/22/24 09:59) Medications ???Medication ???Instructions ???Recorded ???Confirmed ???Type metformin 500 mg tablet 500 ea PO BID DIABETES 10/31/22 08/22/24 History aspirin 81 mg chewable tablet 81 mg PO DAILY@0800 #30 tabs 11/19/22 08/22/24 Rx bupropion HCl 150 mg 24 hr tablet, 150 mg PO DAILY 01/21/23 08/22/24 History extended release empagliflozin 10 mg tablet 10 mg PO DAILY 01/21/23 08/22/24 History (Jardiance) citalopram 20 mg tablet 20 mg PO DAILY 03/22/23 08/22/24 History budesonide-formotero l HFA 80 1 puff inhalation BID 04/09/23 08/22/24 History mcg-4.5 mcg/actuation aerosol inhaler (Symbicort) montelukast 10 mg tablet 10 mg PO DAILY 04/09/23 08/22/24 History (Singulair) pantoprazole 40 mg tablet,delayed 40 mg PO BID 05/04/23 08/22/24 History release metoprolol succinate 50 mg 25 mg PO DAILY BLOOD PRESSURE 05/20/23 08/22/24 History tablet,extended release 24 hr cholecalciferol (vitamin D3) 50 50 mcg PO DAILY 08/25/23 08/22/24 History mcg (2,000 unit) capsule magnesium 250 mg tablet 250 mg PO DAILY 08/25/23 08/22/24 History omega-3 fatty acids 1,000 mg 1,000 mg PO DAILY 08/25/23 08/22/24 History capsule phenazopyridine 95 mg tablet 95 mg PO BID 08/25/23 08/22/24 History atorvastatin 40 mg tablet 40 mg PO DAILY #30 tabs 04/18/24 08/22/24 Rx albuterol sulfate 90 mcg/actuation 2 puff inhalation Q6H PRN 04/27/24 08/22/24 Rx aerosol inhaler shortness of breath or wheezing #8.5 grams diazepam 5 mg tablet 5 mg PO Q8 PRN Muscle Spasm #15 07/11/24 08/22/24 Rx tabs levocetirizine 5 mg tablet 5 mg PO DAILY 08/22/24 08/22/24 History lisinopril 20 mg tablet 20 mg PO DAILY BLOOD PRESSURE #30 08/22/24 08/22/24 Rx tabs varenicline 1 mg tablet (Chantix) 1 mg PO BID 08/22/24 08/22/24 History PFSH Medical History Strain of left foot Plantar fasciitis of left foot Acute otitis media, right Contact with or exposure to other viral diseases URI (upper respiratory infection) Alcohol abuse GERD (gastroesophageal reflux disease) CPAP (continuous positive airway pressure) dependence Smoker COPD (chronic obstructive pulmonary disease) Myocardial infarct Seizures History of left heart catheterization (LHC) ( 11/19/22) Sleep apnea Pancreatitis Acute lumbar myofascial strain Strain of left hip Depression Anxiety Diabetes HTN (hypertension) Type 2 diabetes mellitus Surgical History History of cholecystectomy H/O tooth extraction plantar fasciitis release Family History Grandfather CVA (cerebral vascular accident) Diabetes Mother Cancer Father Hypertension Grandmother Hypertension Diabetes Social History household members: spouse and children housing: house pets and animals: Yes Sm (more content not included)... Normal [facility] Comprehensive Metabolic Prof ilon 08-22-2024 Albumin [Mass/Vol] 3.6 g/dL Normal 3.2-5.0 [facility] Comment on above: Order Comment: Comme nts: okay to do nonfasting Performed By: #### L 500.4100, L500.4050 #### [facility] [address] [place], [address] Albumin/Globulin [Mass ratio] 0.9 {ratio} Normal 0.9-2.4 [facility] Comment on above: Order Comment: Comme nts: okay to do nonfasting Performed By: #### L 500.4100, L500.4050 #### [facility] [address] [place], [address] ALK P 91 U/L Normal 45-117 [facility] Comment on above: Order Comment: Comme nts: okay to do nonfasting Performed By: #### L 500.4100, L500.4050 #### [facility] [address] [facility] [place], [address] ALT [Catalytic activity/Vol] 39 U/L Normal 13-56 [facility] Comment on above: Order Comment: Comme nts: okay to do nonfasting Performed By: #### L 500.4100, L500.4050 #### [facility] [address] [place], [address] AST [Catalytic activity/Vol] 41 U/L High 15-37 [facility] Comment on above: Order Comment: Comme nts: okay to do nonfasting Performed By: #### L 500.4100, L500.4050 #### [facility] [address] [place], [address] Bilirubin [Mass/Vol] 0.50 mg/dL Normal 0.20-1.00 [facility] Comment on above: Order Comment: Comme nts: okay to do nonfasting Result Comment: For patients on eltrombopag therapy, use of Dimension [place] TBIL is not recommended. Performed By: #### L 500.4100, L500.4050 #### [facility] [address] [place], [address] BUN/CRE 11.9 RATIO Normal 10-20 [facility] Comment on above: Order Comment: Comme nts: okay to do nonfasting Performed By: #### L 500.4100, L500.4050 #### [facility] [address] [place], [address] CA,Total 9.6 mg/dL Normal 8.5-10.1 [facility] Comment on above: Order Comment: Comme nts: okay to do nonfasting Performed By: #### L 500.4100, L500.4050 #### [facility] [address] [place], [address] Chloride [Moles/Vol] 104 mmol/L Normal 98-107 [facility] Comment on above: Order Comment: Comme nts: okay to do nonfasting Performed By: #### L 500.4100, L500.4050 #### [facility] [address] [place], [address] CO2 [Moles/Vol] 27.0 mmol/L Normal 21.0-32.0 [facility] Comment on above: Order Comment: Comme nts: okay to do nonfasting Performed By: #### L 500.4100, L500.4050 #### [facility] [address] [place], [address] Creatinine [Mass/Vol] 0.67 mg/dL Normal 0.55-1.02 [facility] Comment on above: Order Comment: Comme nts: okay to do nonfasting Result Comment: The validity of the calculated GFR GFRAA in patients over 70 years has not been determined. Clinical correlation is essential. Performed By: #### L 500.4100, L500.4050 #### [facility] [address] [place], [address] EST GFR - AA 121 mL/min Normal >60 [facility] Comment on above: Order Comment: Commalexandra nts: okay to do nonfasting Result Comment: Afri can Pakistani GFR Calc Performed By: #### L 500.4100, L500.4050 #### [facility] [address] [place], [address] GAP 6 Normal 5-15 [facility] Comment on above: Order Comment: Commalexandra nts: okay to do nonfasting Performed By: #### L 500.4100, L500.4050 #### [facility] [address] [place], [address] GFR/1.73 sq M.predicted among non-blacks MDRD (S/P/Bld) [Vol rate/Area] 100 mL/min/{1.73_m2} Normal >60 [facility] Comment on above: Order Comment: Comme nts: okay to do nonfasting Result Comment: Non- GFR Calc Performed By: #### L 500.4100, L500.4050 #### [facility] [address] [place], [address] Globulin (S) [Mass/Vol] 4.0 g/dL Normal 2.2-4.2 [facility] Comment on above: Order Comment: Comme nts: okay to do nonfasting Performed By: #### L 500.4100, L500.4050 #### [facility] [address] [place], [address] Glucose [Mass/Vol] 130 mg/dL High 74-106 [facility] Comment on above: Order Comment: Comme nts: okay to do nonfasting Result Comment: Fast ing Glucose result greater than or equal to 126 mg/dL suggests DIABETES MELLITUS per A.D.A. criteria. Performed By: #### L 500.4100, L500.4050 #### [facility] [address] [place], [address] Potassium [Moles/Vol] 4.2 mmol/L Normal 3.5-5.1 [facility] Comment on above: Order Comment: Comme nts: okay to do nonfasting Performed By: #### L 500.4100, L500.4050 #### [facility] [address] [place], [address] Sodium [Moles/Vol] 137 mmol/L Normal 136-145 [facility] Comment on above: Order Comment: Comme nts: okay to do nonfasting Performed By: #### L 500.4100, L500.4050 #### [facility] [address] [place], [address] T PROT 7.6 g/dL Normal 6.4-8.2 [facility] Comment on above: Order Comment: Comme nts: okay to do nonfasting Performed By: #### L 500.4100, L500.4050 #### [facility] [address] [place], [address] Urea nitrogen [Mass/Vol] 8 mg/dL Normal 7-18 [facility] Comment on above: Order Comment: Comme nts: okay to do nonfasting Performed By: #### L 500.4100, L500.4050 #### [facility] [address] [place], [address] Lipid Profileon 08-22-2024 Cholesterol [Mass/Vol] 124 mg/dL Normal 200 [facility] Comment on above: Order Comment: Comme nts: okay to do nonfasting Result Comment: <200 mg/dL Desirable 200-240 mg/dL Borderline >240 mg/dL High Risk Performed By: #### L 500.4100, L500.4050 #### [facility] [address] [place], [address] Cholesterol in HDL [Mass/Vol] 70 mg/dL Normal [facility] Comment on above: Order Comment: Comme nts: okay to do nonfasting Result Comment: The drugs N-Acetylcysteine and Metamizole may falsely depress this assay. Reference Range HDL <40 mg/dL Low HDL Cholesterol HDL >or= 60 mg/dL High HDL Cholesterol Performed By: #### L 500.4100, L500.4050 #### [facility] [address] [place], [address] Cholesterol in LDL [Mass/Vol] 13 mg/dL Normal 0-130 [facility] Comment on above: Order Comment: Comme nts: okay to do nonfasting Performed By: #### L 500.4100, L500.4050 #### [facility] [address] [place], [address] Cholesterol in VLDL [Mass/Vol] 41 mg/dL High 5-40 [facility] Comment on above: Order Comment: Comme nts: okay to do nonfasting Performed By: #### L 500.4100, L500.4050 #### [facility] [address] [place], [address] Triglyceride [Mass/Vol] 204 mg/dL High [facility] Comment on above: Order Comment: Comme nts: okay to do nonfasting Result Comment: The drugs N-Acetylcysteine and Metamizole may falsely depress this assay. Serum Triglycerides Reference Interval Normal <150 mg/dL Borderline high 150 - 199 mg/dL High 200 - 499 mg/dL Very High > or = 500 mg/dL Performed By: #### L 500.4100, L500.4050 #### [facility] [address] [place], [address] Inital Evaluation (1) - PTon 08-16-2024 Inital Evaluation (1) - PT [facility] Physical Therapy [facility] [address] [place] [address] / REHABILITATION SERVICES INITIAL EVALUATION MR#: [id number] Acct: [id number] Name: JOSEPH RINCON Rep #: [id number] : 1975 49 From: Liam Welch DPT Referring Dr.: Dr. Abisai Haley MD Status: REG RCR Insurance: [facility] [employer] Patient's Visit Information Visit Information Visit Information: JOSEPH RINCON is a 49 year old F referred to Physical Therapy by Abisai Haley MD with a diagnosis of Low Back pain. Date of Evaluation: 08/15/24 Physical Therapist: Liam Welch DPT Visit Plan Frequency: 2x /Week Duration: 4 Weeks Plan: Start with extension progression, but slowly. Add in IASTIM to reduce muscle spasms. I did talk with her about getting some imaging done as her symptoms have not improved over the past few weeks. Subjective Subjective: Pt. is here today for her initial evaluation with diagnosis of low back pain. Pt. reports having no mech of injury, but has had pain for 3 months now. Pt. reports pain predominantly in lumbar spine mostly on L side. No radicular symptoms. No N/T. No sudden LE weakness. Mornings are slightly worse. Pt. reports once I get moving its a little bit better. No position seems to be better. 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 Pt. has not had any imaging at this point in time. Pt. reports having a constant ache like pain with intermittent sharp pains. She reports she was to get back with physician last week to see how she was doing. She has been taking a muscle relaxor and pain medication without much relief. Pain Lumbar spine: Pain Intensity (Out of 10): 6 Pain Intensity Range: 3 and 9 Objective Objective: POSTURE: pt. has decent posture in stance. No lateral shift noted. PALPATION: Pt. has increased tenderness at B lumbar erector spinae. Pt. has increased pain and hypomobility with spring testing throughout lumbar spine, worsening at lower segments. NEURO: normal DTR and normal sensation throughout. ROM: LUMBAR SPINE; flexion min/mod loss increase NW, ext min loss less increase NW, SB min loss bilat NE, rotation min loss bilat increase NW to L side. MMT: 5/5 throughout BLEs. Pt. has fair - core strength. GAIT: Pt. has guarded gait pattern. Pt. has reduced arm swing with gait as well. No marked Trendelenburg noted. Special Tests L/S Slump test left side: Negative L/S Slump test right side: Negative L/S Left Straight Leg Raise: Negative L/S Right Straight Leg Raise: Negative Lumbar Standing: Flexion - Mechanical Response: No effect Lumbar Standing: Flexion - Symptoms During Testing: Increases Lumbar Standing: Flexion - Symptoms After Testing: No worse Lumbar Standing: Extension - Mechanical Response: No effect Lumbar Standing: Extension - Symptoms During Testing: No effect Lumbar Standing: Extension - Symptoms After Testing: No better Lumbar Standing: Right Side Glides - Mechanical Response: No effect Lumbar Standing: Right Side Malone - Symptoms During Testing: No effect Lumbar Standing: Right Side Malone - Symptoms After Testing: No effect Lumbar Standing: Left Side Malone - Mechanical Response: No effect Lumbar Standing: Left Side Malone - Symptoms During Testing: No effect Lumbar Standing: Left Side Malone - Symptoms After Testing: No effect Lumbar Lying: Flexion - Mechanical Response: No effect Lumbar Lying: Flexion - Symptoms During Testing: Increases Lumbar Lying: Flexion - Symptoms After Testing: No worse Lumbar Lying: Extension - Mechanical Response: No effect Lumbar Lying: Extension - Symptoms During Testing: Increases Lumbar Lying: Extension - Symptoms After Testing: No worse Balance/Special Test Scores Oswestry Low Back Score: 16 Goals Goal 1:: LTG: Pt. to be I with HEP. Goal Time Frame: 4-6 Weeks Goal 2:: LTG: Pt. to have increased lumbar spine ROM in all directions by 25% without increase in symptoms. Goal Time Frame: 4-6 Weeks Goal 3:: LTG: Pt. be able to work without increase in lumbar spine. Goal Time Frame: 4-6 Weeks Goal 4:: LTG: Pt. to sleep throughout the night without increase in symptoms. Goal Time Frame: 4-6 Weeks Goal 5:: LTG: Pt. to have increased core strength to fair to reduce stress to lumbar spine with all activities. Goal Time Frame: 4-6 Weeks Rehabilitation Potential Physical Therapy Diagnosis: Pt. has signs and symptoms consistent with low back pain. Pt. did not have a directional preference and did not present with any directional preference this date. Pt. does have some limited lumbar ROM which I would like to work on progressing her lumbar ROM and decreasing her pain. Rehabilitation Potential: Fair Anticipated Interventions Patient/Client Instruction: Educate patient on: Condition, Plan of Care, Risk Factors and Benefits of Fitness Program For the Purpose of:: To improve decision (more content not included)... Normal [facility] Abdomen/Pelvis without Conto n 07-11-2024 Abdomen/Pelvis without Cont [facility] Imaging Services [address] [place] [address] [id number] Abdomen/Pelvis without Cont MR#: [id number] Acct: [id number] Name: JOSEPH RINCON Rep #: [id number] : 1975 F 49 From: Guy walker MD PCP: Dr. Abisai Haley MD Status: REG ER Study: Abdomen/Pelvis without Cont Date of Exam: 06/29 02/19 Exam# [id number] Ordering Dr: Shane Jacobs DO [id number] STUDY: CT ABDOMEN AND PELVIS WITHOUT CONTRAST REASON FOR EXAM: Female, 49 years old. Right flank pain. History of prior cholecystectomy. RADIATION DOSAGE (If Supplied By Facility): CTDIvol = ( 11.38 ) mGy, DLP = ( 520.24 ) mGycm TECHNIQUE: Transaxial images were obtained from the dome of the diaphragm to the symphysis pubis without oral contrast, and without intravenous contrast. Sagittal and coronal images were reconstructed. Individualized dose optimization techniques were used for this CT. COMPARISON: Comparison is made with prior study dated August 23, 2023. FINDINGS: The visualized lung bases are unremarkable. The visualized portions of the heart are within normal limits. Normal liver. There are surgical clips in the gallbladder fossa consistent with a prior cholecystectomy. Normal spleen. Calcifications are seen in the head of the pancreas suggestive of chronic pancreatitis.. Normal bilateral adrenal glands. Normal right kidney. Normal left kidney. Normal visualized stomach. Normal small intestine. Normal colon. The appendix is visualized and appears normal. There is scattered atherosclerotic calcification of the abdominal aorta, without a demonstrated aneurysm. Normal inferior vena cava. Normal retroperitoneum. Normal urinary bladder. There is a 2.4 cm left ovarian cyst. Normal abdominal wall. Normal osseous structures. CT/Abdomen/Pelvis without Cont IMPRESSION: Status post cholecystectomy. Calcifications are seen in the head of the pancreas suggestive of chronic pancreatitis. Left ovarian cyst. Electronically Signed: Guy Roger MD at 13:19 EDT Reading Location ID and State: [facility] / MD , Service support , CC: Dr. Abisai Haley MD; Dr. Shane Jacobs DO Sericulture Teacher: Signed Normal [facility] CBC W/Diff, Automatedon 06-29 Absolute Neut Normal 2.0-7.7 [facility] Comment on above: Result Comment[facility], SEE OTHER FOR RESULTS Performed By: #### L 501.4020 #### [facility] [address] [place], [place], [address] HCT Normal 37-47 [facility] Comment on above: Result Comment: TIESHAL ICATE ORDER, SEE OTHER FOR RESULTS Performed By: #### L 501.4020 #### [facility] [address] [place], [place], [id number] HGB Normal 12.0-15.0 [facility] Comment on above: Result Comment: DUPL ICATE ORDER, SEE OTHER FOR RESULTS Performed By: #### L 501.4020 #### [facility] [address] [place], [address] MCH Normal 27.0-32.0 [facility] Comment on above: Result Comment: DUPL ICATE ORDER, SEE OTHER FOR RESULTS Performed By: #### L 501.4020 #### [facility] [address] [place], [address] MCHC Normal 32-36 [facility] Comment on above: Result Comment: DUPL ICATE ORDER, SEE OTHER FOR RESULTS Performed By: #### L 501.4020 #### [facility] [address] [place], [address] MCV Normal 81-99 [facility] Comment on above: Result Comment: DUPL ICATE ORDER, SEE OTHER FOR RESULTS Performed By: #### L 501.4020 #### [facility] [address] [place], [address] NEUT% Normal 47-70 [facility] Comment on above: Result Comment: DUPL ICATE ORDER, SEE OTHER FOR RESULTS Performed By: #### L 501.4020 #### [facility] [address] [place], [address] PLT Normal 150-450 [facility] Comment on above: Result Comment: DUPL ICATE ORDER, SEE OTHER FOR RESULTS Performed By: #### L 501.4020 #### [facility] [address] [place], [address] RBC Normal 4.2-5.4 [facility] Comment on above: Result Comment: DUPL ICATE ORDER, SEE OTHER FOR RESULTS Performed By: #### L 501.4020 #### [facility] [address] [place], [address] RDW CV Normal 11.6-14.6 [facility] Comment on above: Result Comment: DUPL ICATE ORDER, SEE OTHER FOR RESULTS Performed By: #### L 501.4020 #### [facility] [address] [place], [address] RDW SD Normal 35.1-43.9 [facility] Comment on above: Result Comment: DUPL ICATE ORDER, SEE OTHER FOR RESULTS Performed By: #### L 501.4020 #### [facility] [address] [place], [address] WBC Normal 4.4-11.0 [facility] Comment on above: Result Comment: DUPL ICATE ORDER, SEE OTHER FOR RESULTS Performed By: #### L 501.4020 #### [facility] [address] [place], [address] Absolute Lymph 1.73 X10 3/uL Normal 0.83-4.51 [facility] Comment on above: Performed By: #### L 500.2500, L100.0100, L501.5425, L300.8000, L501.5200, L700.6800 #### [facility] [address] [place], [address] Absolute Neut 4.5 X10 3/uL Normal 2.0-7.7 [facility] Comment on above: Performed By: #### L 500.2500, L100.0100, L501.5425, L300.8000, L501.5200, L700.6800 #### [facility] [address] [place], [address] Basophils/100 WBC (Bld) 0.7 % Normal 0-1 [facility] Comment on above: Performed By: #### L 500.2500, L100.0100, L501.5425, L300.8000, L501.5200, L700.6800 #### [facility] [address] [place], [address] Eosinophils/100 WBC (Bld) 2.4 % Normal 0-5 [facility] Comment on above: Performed By: #### L 500.2500, L100.0100, L501.5425, L300.8000, L501.5200, L700.6800 #### [facility] [address] [place], [address] Erythrocyte distribution width (RBC) [Ratio] 12.7 % Normal 11.6-14.6 [facility] Comment on above: Performed By: #### L 500.2500, L100.0100, L501.5425, L300.8000, L501.5200, L700.6800 #### [facility] [address] [place], [address] Hematocrit (Bld) [Volume fraction] 41.9 % Normal 37-47 [facility] Comment on above: Performed By: #### L 500.2500, L100.0100, L501.5425, L300.8000, L501.5200, L700.6800 #### [facility] [address] [place], [address] Hemoglobin (Bld) [Mass/Vol] 14.0 g/dL Normal 12.0-15.0 [facility] Comment on above: Performed By: #### L 500.2500, L100.0100, L501.5425, L300.8000, L501.5200, L700.6800 #### [facility] [address] [place], [address] IG% 0.400 Normal 0.0-0.9 [facility] Comment on above: Result Comment: IG% - Immature Granulocytes (promyelocytes, myelocytes and metamyelocytes) > 1% indicates that a LEFT SHIFT is Present. Performed By: #### L 500.2500, L100.0100, L501.5425, L300.8000, L501.5200, L700.6800 #### [facility] [address] [place], [address] Lymphocytes/100 WBC (Bld) 24.2 % Normal 19-41 [facility] Comment on above: Performed By: #### L 500.2500, L100.0100, L501.5425, L300.8000, L501.5200, L700.6800 #### [facility] [address] [place], [address] MCH (RBC) [Entitic mass] 31.6 pg Normal 27.0-32.0 [facility] Comment on above: Performed By: #### L 500.2500, L100.0100, L501.5425, L300.8000, L501.5200, L700.6800 #### [facility] [address] [place], [address] MCHC (RBC) [Mass/Vol] 33.4 g/dL Normal 32-36 [facility] Comment on above: Performed By: #### L 500.2500, L100.0100, L501.5425, L300.8000, L501.5200, L700.6800 #### [facility] [address] [place], [address] MCV (RBC) [Entitic vol] 94.6 fL Normal 81-99 [facility] Comment on above: Performed By: #### L 500.2500, L100.0100, L501.5425, L300.8000, L501.5200, L700.6800 #### [facility] [address] [place], [address] Monocytes/100 WBC (Bld) 9.4 % Normal 0-10 [facility] Comment on above: Performed By: #### L 500.2500, L100.0100, L501.5425, L300.8000, L501.5200, L700.6800 #### [facility] [address] [place], [address] Neutrophils/100 WBC (Bld) 62.9 % Normal 47-70 [facility] Comment on above: Performed By: #### L 500.2500, L100.0100, L501.5425, L300.8000, L501.5200, L700.6800 #### [facility] [address] [place], [address] Nucleated RBC (Bld) [#/Vol] 0.3 10*3/uL Normal 0-5 [facility] Comment on above: Performed By: #### L 500.2500, L100.0100, L501.5425, L300.8000, L501.5200, L700.6800 #### [facility] [address] [place], [address] Platelet mean volume (Bld) [Entitic vol] 9.0 fL Normal 6.2-12.0 [facility] Comment on above: Performed By: #### L 500.2500, L100.0100, L501.5425, L300.8000, L501.5200, L700.6800 #### [facility] [address] [place], [address] Platelets (Bld) [#/Vol] 243 10*3/uL Normal 150-450 [facility] Comment on above: Performed By: #### L 500.2500, L100.0100, L501.5425, L300.8000, L501.5200, L700.6800 #### [facility] [address] [place], [address] RBC (Bld) [#/Vol] 4.43 10*6/uL Normal 4.2-5.4 [facility] Comment on above: Performed By: #### L 500.2500, L100.0100, L501.5425, L300.8000, L501.5200, L700.6800 #### [facility] [address] [place], [address] RDW SD 43.8 fl Normal 35.1-43.9 [facility] Comment on above: Performed By: #### L 500.2500, L100.0100, L501.5425, L300.8000, L501.5200, L700.6800 #### [facility] [address] [place], [address] WBC (Bld) [#/Vol] 7.2 10*3/uL Normal 4.4-11.0 [facility] Comment on above: Performed By: #### L 500.2500, L100.0100, L501.5425, L300.8000, L501.5200, L700.6800 #### [facility] [address] [place], [address] Comprehensive Metabolic Prof [facility] 07-11-2024 Albumin [Mass/Vol] 3.7 g/dL Normal 3.2-5.0 [facility] Comment on above: Performed By: #### L 500.2500, L100.0100, L501.5425, L300.8000, L501.5200, L700.6800 #### [facility] [address] [place], [address] Albumin/Globulin [Mass ratio] 0.9 {ratio} Normal 0.9-2.4 [facility] Comment on above: Performed By: #### L 500.2500, L100.0100, L501.5425, L300.8000, L501.5200, L700.6800 #### [facility] [address] [place], [address] ALK P 94 U/L Normal 45-117 [facility] [facility] Comment on above: Performed By: #### L 500.2500, L100.0100, L501.5425, L300.8000, L501.5200, L700.6800 #### [facility] [address] [place], [address] ALT [Catalytic activity/Vol] 58 U/L High 13-56 [facility] Comment on above: Performed By: #### L 500.2500, L100.0100, L501.5425, L300.8000, L501.5200, L700.6800 #### [facility] [address] [place], [address] AST [Catalytic activity/Vol] 35 U/L Normal 15-37 [facility] Comment on above: Performed By: #### L 500.2500, L100.0100, L501.5425, L300.8000, L501.5200, L700.6800 #### [facility] [address] [place], [address] Bilirubin [Mass/Vol] 0.40 mg/dL Normal 0.20-1.00 [facility] Comment on above: Result Comment: For patients on eltrombopag therapy, use of Dimension [place] TBIL is not recommended. Performed By: #### L 500.2500, L100.0100, L501.5425, L300.8000, L501.5200, L700.6800 #### [facility] [address] [place], [address] BUN/CRE 16.3 RATIO Normal 10-20 [facility] Comment on above: Performed By: #### L 500.2500, L100.0100, L501.5425, L300.8000, L501.5200, L700.6800 #### [facility] [address] [place], [address] CA,Total 8.5 mg/dL Normal 8.5-10.1 [facility] Comment on above: Performed By: #### L 500.2500, L100.0100, L501.5425, L300.8000, L501.5200, L700.6800 #### [facility] [address] [place], [address] Chloride [Moles/Vol] 101 mmol/L Normal 98-107 [facility] Comment on above: Performed By: #### L 500.2500, L100.0100, L501.5425, L300.8000, L501.5200, L700.6800 #### [facility] [address] [place], [address] CO2 [Moles/Vol] 26.0 mmol/L Normal 21.0-32.0 [facility] Comment on above: Performed By: #### L 500.2500, L100.0100, L501.5425, L300.8000, L501.5200, L700.6800 #### [facility] [address] [place], [address] Creatinine [Mass/Vol] 0.67 mg/dL Normal 0.55-1.02 [facility] Comment on above: Result Comment: The validity of the calculated GFR GFRAA in patients over 70 years has not been determined. Clinical correlation is essential. Performed By: #### L 500.2500, L100.0100, L501.5425, L300.8000, L501.5200, L700.6800 #### [facility] [address] [place], [address] EST GFR - AA 120 mL/min Normal >60 [facility] Comment on above: Result Comment: Afri can Pakistani GFR Calc Performed By: #### L 500.2500, L100.0100, L501.5425, L300.8000, L501.5200, L700.6800 #### [facility] [address] [place], [address] GAP 9 Normal 5-15 [facility] Comment on above: Performed By: #### L 500.2500, L100.0100, L501.5425, L300.8000, L501.5200, L700.6800 #### [facility] [address] [place], [address] GFR/1.73 sq M.predicted among non-blacks MDRD (S/P/Bld) [Vol rate/Area] 100 mL/min/{1.73_m2} Normal >60 [facility] Comment on above: Result Comment: Non- GFR Calc Performed By: #### L 500.2500, L100.0100, L501.5425, L300.8000, L501.5200, L700.6800 #### [facility] [address] [place], [address] Globulin (S) [Mass/Vol] 4.0 g/dL Normal 2.2-4.2 [facility] Comment on above: Performed By: #### L 500.2500, L100.0100, L501.5425, L300.8000, L501.5200, L700.6800 #### [facility] [address] [place], [address] Glucose [Mass/Vol] 175 mg/dL High 74-106 [facility] Comment on above: Result Comment: Fast ing Glucose result greater than or equal to 126 mg/dL suggests DIABETES MELLITUS per A.D.A. criteria. Performed By: #### L 500.2500, L100.0100, L501.5425, L300.8000, L501.5200, L700.6800 #### [facility] [address] [place], [address] Potassium [Moles/Vol] 3.8 mmol/L Normal 3.5-5.1 [facility] Comment on above: Performed By: #### L 500.2500, L100.0100, L501.5425, L300.8000, L501.5200, L700.6800 #### [facility] [address] [place], [address] Sodium [Moles/Vol] 136 mmol/L Normal 136-145 [facility] Comment on above: Performed By: #### L 500.2500, L100.0100, L501.5425, L300.8000, L501.5200, L700.6800 #### [facility] [address] [place], [address] T PROT 7.7 g/dL Normal 6.4-8.2 [facility] Comment on above: Performed By: #### L 500.2500, L100.0100, L501.5425, L300.8000, L501.5200, L700.6800 #### [facility] [address] [place], [address] Urea nitrogen [Mass/Vol] 11 mg/dL Normal 7-18 [facility] Comment on above: Performed By: #### L 500.2500, L100.0100, L501.5425, L300.8000, L501.5200, L700.6800 #### [facility] [address] [place], [place], [id number] Emergency Department Summary on 07-11-2024 Emergency Department Summary [facility] Medical Records Department [address] [place] [address] Emergency Department Summary 07/11/24 MR#: [id number] Acct: [id number] Name: JOSEPH RINCON Rep #: [id number] : 1975 49 From: Shane Jacobs DO PCP: Dr. Abisai Haley MD Status:DEP ER Location: ED HPI History of Present Illness Chief Complaint: Abd Pain Informant: patient Narrative Narrative: 49-year-old female presenting to the emergency room with abdominal and flank pain. Patient states she woke this morning with low back pain bilaterally. She states that shortly thereafter she developed pain going onto the right side of her abdomen as well as nausea and vomiting. She denies any urinary or bowel changes. No fevers. Patient notes that she went to bed last night feeling fine. She does not recall any injury to the low back. Her notes that there was some physical activity yesterday that may have caused a back strain. She denies any radicular symptoms from the back. No rashes. She has had prior cholecystectomy. [facility] Medical History Strain of left foot Plantar fasciitis of left foot Acute otitis media, right Contact with or exposure to other viral diseases URI (upper respiratory infection) Alcohol abuse GERD (gastroesophageal reflux disease) CPAP (continuous positive airway pressure) dependence Smoker COPD (chronic obstructive pulmonary disease) Myocardial infarct Seizures History of left heart catheterization (LHC) ( 11/19/22) Sleep apnea Pancreatitis Acute lumbar myofascial strain Strain of left hip Depression Anxiety Diabetes HTN (hypertension) Type 2 diabetes mellitus Home Medications ???Medication ???Instructions ???Recorded ???Last Taken ???Type metformin 500 mg tablet 500 ea PO BID DIABETES 10/31/22 11/17/22 21:30 History aspirin 81 mg chewable tablet 81 mg PO DAILY@0800 #30 tabs 11/19/22 Unknown Rx bupropion HCl 150 mg 24 hr tablet, 150 mg PO DAILY 01/21/23 Unknown History extended release empagliflozin 10 mg tablet 10 mg PO DAILY 01/21/23 Unknown History (Jardiance) citalopram 20 mg tablet 20 mg PO DAILY 03/22/23 Unknown History budesonide-formotero l HFA 80 1 puff inhalation BID 04/09/23 Unknown History mcg-4.5 mcg/actuation aerosol inhaler (Symbicort) levocetirizine 5 mg tablet 5 mg PO DAILY 04/09/23 Unknown History montelukast 10 mg tablet 10 mg PO DAILY 04/09/23 Unknown History (Singulair) pantoprazole 40 mg tablet,delayed 40 mg PO BID 05/04/23 Unknown History release metoprolol succinate 50 mg 25 mg PO DAILY BLOOD PRESSURE 05/20/23 Unknown History tablet,extended release 24 hr oxycodone-acetaminop hen 5 mg-325 1 tab PO Q6H PRN pain 3 days #12 08/23/23 Unknown Rx mg tablet (Percocet) tabs cholecalciferol (vitamin D3) 50 50 mcg PO DAILY 08/25/23 Unknown History mcg (2,000 unit) capsule magnesium 250 mg tablet 250 mg PO DAILY 08/25/23 Unknown History omega-3 fatty acids 1,000 mg 1,000 mg PO DAILY 08/25/23 Unknown History capsule phenazopyridine 95 mg tablet 95 mg PO BID 08/25/23 Unknown History clindamycin HCl 300 mg capsule 300 mg PO TID #30 caps 09/27/23 Unknown Rx doxycycline monohydrate 100 mg 100 mg PO BID #20 tabs 10/19/23 Unknown Rx tablet lisinopril 10 mg tablet 5 mg (1/2 x 10 mg) PO DAILY BLOOD 01/24/24 Unknown Rx PRESSURE #30 tabs prednisone 10 mg tablet 10 mg PO DAILY #18 tabs 03/22/24 Unknown Rx atorvastatin 40 mg tablet 40 mg PO DAILY #30 tabs 04/18/24 Unknown Rx albuterol sulfate 90 mcg/actuation 2 puff inhalation Q6H PRN 04/27/24 Unknown Rx aerosol inhaler shortness of breath or wheezing #8.5 grams ondansetron 4 mg disintegrating 4 mg PO Q6H PRN nausea and 04/27/24 Unknown Rx tablet vomiting #10 tabs diazepam 5 mg tablet 5 mg PO Q8 PRN Muscle Spasm #15 07/11/24 Unknown Rx tabs ondansetron 4 mg disintegrating 4 mg PO Q6H PRN vomiting #10 tabs 07/11/24 Unknown Rx tablet oxycodone-acetaminop hen 5 mg-325 1 tab PO Q6H PRN PRN Pain 3 days 07/11/24 Unknown Rx mg tablet #12 TABLETS Allergy/AdvReac Type Severity Reaction Status Date / Time No Known Allergies Allergy Verified 07/11/24 11:13 Family History Grandfather CVA (cerebral vascular accident) Diabetes Mother Cancer Father Hypertension Grandmother Hypertension Diabetes Surgical History History of cholecystectomy H/O tooth extraction plantar fasciitis release Social History household members: spouse and children housing: house pets and animals: Yes Smoking Status: Current some day smoker tobacco type: cigarettes alcohol intake: current alcohol intake hua (more content not included)... Normal [facility] Lipaseon 07-11-2024 Lipase [Catalytic activity/Vol] 32 U/L Normal 13-75 [facility] Comment on above: Result Comment: Lucie schultz note: LIPASE revised reference range effective 23. New Lipase methodology. Expected to produce lower values than the previous assay method. NEW Reference Range: 13 - 75 U/L Performed By: #### L 501.4020 #### [facility] [address] [place], [address] ,Serum,hCG Quali.on 07-11-2024 HCG, SERUM QUAL Negative Normal [facility] Comment on above: Performed By: #### L 500.2500, L100.0100, L501.5425, L300.8000, L501.5200, L700.6800 #### [facility] [address] [place], [place], [id number] Urinalysis, Completeon 07-11 Mucus Ql (Urine sed) RARE Normal [facility] Comment on above: Order Comment: COLLE CTOR TO SPECIFY Performed By: #### L 500.2500, L100.0100, L501.5425, L300.8000, L501.5200, L700.6800 #### [facility] [address] [place], [place], [id number] [phone] BACTERIA 1+ /hpf Normal None Seen [facility] Comment on above: Order Comment: COLLE CTOR TO SPECIFY Performed By: #### L 500.2500, L100.0100, L501.5425, L300.8000, L501.5200, L700.6800 #### [facility] [address] [place], [address] EPI,SQUAMOUS 5-10 SEEN Normal 5-10 [facility] Comment on above: Order Comment: COLLE CTOR TO SPECIFY Performed By: #### L 500.2500, L100.0100, L501.5425, L300.8000, L501.5200, L700.6800 #### [facility] [address] [place], [address] WBC 5-10 SEEN Normal 0-5 [facility] Comment on above: Order Comment: COLLE CTOR TO SPECIFY Performed By: #### L 500.2500, L100.0100, L501.5425, L300.8000, L501.5200, L700.6800 #### [facility] [address] [place], [address] RBC 0 SEEN Normal 0-5 [facility] Comment on above: Order Comment: [place] CTOR TO SPECIFY Performed By: #### L 500.2500, L100.0100, L501.5425, L300.8000, L501.5200, L700.6800 #### [facility] [address] [place], [address] CNOVon 04-22-2024 CNOV Office Visit (UCTR) JOSEPH RINCON ([id number]) 1975 F NFR Date Time Provider Department 04/22/24 1:30 PM [facility] During your visit today, we recorded the following information about you: Temperature Pulse Respiration Blood pressure 97.4 degrees 115/minute 20/minute 120/84 Weight 75.8 kg Aretha Schofield APRN.CASHIER CREDIT 04/22/2024 2:02 PM Signed Subjective Sinus Problem Associated symptoms include coughing, nausea and a sore throat. Pertinent negatives include no chills, fever, myalgias or vomiting. Joseph Rincon is a 49 year old female who presents with nasal congestion and post nasal drainage since yesterday. Has also had a cough and some wheezing. She states she woke up this morning and is over it. She denies fever. States she feels nausea [...] EGD EUS GEN ANES 07/21/2012 FNA pseudocyst ESOPHAGOGASTRODUODEN OSCOPY TRANSORAL DIAGNOSTIC 07/18/2014 EGD PAST SURGICAL HISTORY OF 2004 dental extraction PAST SURGICAL HISTORY OF 2011 drainage of pancreatic cyst ALLERGIES Patient has no known allergies. MEDICATIONS citalopram (CELEXA) 20 mg tablet Take 20 mg by mouth once daily. varenicline (CHANTIX) 1 mg tablet Take 1 tablet by mouth every afternoon. JARDIANCE 10 mg tablet Take 10 mg by mouth once daily. budesonide-formotero l (SYMBICORT) 80-4.5 mcg/actuation inhaler Inhale as instructed. [...] since qu (more content not included)... Normal [facility] S[facility]chez Basophil percentageOrdered B y: Milana Garcia on 03-21-2024 Bilirubin [Mass/Vol] 0.60 mg/dL 0.20-1.00 [facility] Comment on above: For patients on eltr ombopag therapy, use of Dimension [place] TBIL is not recommended. Chloride [Moles/Vol] 105 mmol/L 98-107 [facility] Glucose [Mass/Vol] 121 mg/dL 74-106 [facility] Comment on above: Fasting Glucose resu lt from 100 to 125 mg/dL suggests IMPAIRED HOMEOSTASIS per A.D.A. criteria. Potassium [Moles/Vol] 4.0 mmol/L 3.5-5.1 [facility] Protein [Mass/Vol] 7.6 g/dL 6.4-8.2 [facility] Sodium [Moles/Vol] 136 mmol/L 136-145 [facility] - Chemistry and C hemistry - challengeOrdered By: Milana Garcia on 03-21-2024 Albumin/Globulin [Mass ratio] 0.9 {ratio} 0.9-2.4 [facility] ALP [Catalytic activity/Vol] 67 U/L 45-117 [facility] ALT [Catalytic activity/Vol] 27 U/L 13-56 [facility] CO2 [Moles/Vol] 24.0 mmol/L 21.0-32.0 [facility] Globulin (S) [Mass/Vol] 4.0 g/dL 2.2-4.2 [facility] Magnesium [Mass/Vol] 1.7 mg/dL 1.6-2.6 [facility] Sodium (U) [Moles/Vol] 104 mmol/L Not Establ. [facility] Urea nitrogen/Creatinine [Mass ratio] 21.6 mg/mg 10-20 [facility] No Panel InformationOrdered By: Milana Garcia on 03-21-2024 Estimated GFR (MDRD) Amer 108 mL/min >60 [facility] Comment on above: GFR Calc Estimated GFR (MDRD) Non-Af Amer 89 mL/min >60 [facility] Comment on above: Non- GFR Calc Serum or plasma calcium alphonso urement (mass/volume)Ordered By: Milana Garcia on 03-21-2024 Calcium [Mass/Vol] 8.8 mg/dL 8.5-10.1 [facility] Serum or plasma creatinine m easurement (mass/volume)Ordered By: Milana Garcia on 03-21-2024 Creatinine [Mass/Vol] 0.74 mg/dL 0.55-1.02 [facility] Comment on above: The validity of the calculated GFR & GFRAA in patients over 70 years has not been determined. Clinical correlation is essential. Serum or plasma thyroid stim ulating hormone (TSH) measurement (units/volume)Ordered By: Milana Garcia on 03-21-2024 TSH Qn 1.06 uIU/mL 0.358-3.74 [facility] Serum or plasma urea nitroge n measurement (mass/volume)Ordered By: Milana Garcia on 03-21-2024 Urea nitrogen [Mass/Vol] 16 mg/dL 7-18 [facility] Thin prep Papanicolaou smear with manual screeningOrdered By: Milana Garcia on 03-21-2024 Thin prep Papanicolaou smear with manual screening 3.6 g/dL 3.2-5.0 [facility] Thin prep Papanicolaou smear with manual screening 22 U/L 15-37 [facility] Thin prep Papanicolaou smear with manual screening 7 5-15 [facility] Thin prep Papanicolaou smear with manual screening 286 mOsm/KG 275-295 [facility] Urine osmolality measurement Ordered By: Milana Garcia on 03-21-2024 Osmolality (U) [Osmolality] 535 mOsm/KG >50 [facility] Comment on above: Normal Urine Referen ce Ranges Random: 50 - 1200 mOsm/kg H20 depending on fluid intake Random: >850 mOsm/kg after 12 hour fluid restriction 24 hour: ~300 - 900 mOsm/kg H2O Absolute lymphocyte countOrd ered By: Caprice Jerry on 01-24-2024 Lymphocytes Auto (Unsp spec) [#/Vol] 3.36 10*3/uL 0.83-4.51 [facility] Automated lymphocyte count a s percentage of total leukocytesOrdered By: Caprice Jerry on 02-26-2024 Lymphocytes/100 WBC Auto (Unsp spec) 33.3 % 19-41 [facility] Basophil percentageOrdered B y: Caprice Jerry on 01-24-2024 Basophils/100 WBC (Bld) 0.8 % 0-1 [facility] Chloride [Moles/Vol] 104 mmol/L 98-107 [facility] Eosinophils/100 WBC (Bld) 1.6 % 0-5 [facility] Glucose [Mass/Vol] 110 mg/dL 74-106 [facility] Comment on above: Fasting Glucose resu lt from 100 to 125 mg/dL suggests IMPAIRED HOMEOSTASIS per A.D.A. criteria. Hemoglobin (Bld) [Mass/Vol] 12.5 g/dL 12.0-15.0 [facility] Monocytes/100 WBC (Bld) 9.1 % 0-10 [facility] Neutrophils (Bld) [#/Vol] 5.5 10*3/uL 2.0-7.7 [facility] Neutrophils/100 WBC (Bld) 54.8 % 47-70 [facility] Potassium [Moles/Vol] 3.9 mmol/L 3.5-5.1 [facility] Sodium [Moles/Vol] 138 mmol/L 136-145 [facility] WBC (Bld) [#/Vol] 10.1 10*3/uL 4.4-11.0 [facility] Basophil percentageOrdered B y: Ainsley Bean on 01-24-2024 Bilirubin [Mass/Vol] 0.30 mg/dL 0.20-1.00 [facility] Comment on above: For patients on eltr ombopag therapy, use of Dimension [place] TBIL is not recommended. Protein [Mass/Vol] 7.1 g/dL 6.4-8.2 [facility] Determination of erythrocyte mean corpuscular volume (MCV)Ordered By: Caprice Jerry on 01-24-2024 MCV (RBC) [Entitic vol] 95.9 fL 81-99 [facility] Direct bilirubinOrdered By: Ainsley Bean on 01-24-2024 Bilirubin.direct [Mass/Vol] 0.12 mg/dL 0.00-0.30 [facility] Erythrocyte distribution wid th ratioOrdered By: Caprice Jerry on 01-24-2024 Erythrocyte distribution width (RBC) [Ratio] 11.9 % 11.6-14.6 [facility] Erythrocyte distribution wid th standard deviationOrdered By: Caprice Jerry on 01-24-2024 Erythrocyte distribution width (RBC) [Entitic vol] 41.5 fL 35.1-43.9 [facility] Hematocrit Auto (Bld) [Volum e fraction]Ordered By: Caprice Jerry on 01-24-2024 Hematocrit (Bld) [Volume fraction] 37.4 % 37-47 [facility] Immature granulocytes/100 WB C Auto (Bld)Ordered By: Caprice Jerry on 01-24-2024 Immature granulocytes/100 WBC (Bld) 0.400 % 0.0-0.9 [facility] Comment on above: IG% - Immature Granu locytes (promyelocytes, myelocytes and metamyelocytes) > 1% indicates that a LEFT SHIFT is Present. Laboratory - Chemistry and C hemistry - challengeOrdered By: Ainsley Bean on 01-24-2024 ALP [Catalytic activity/Vol] 69 U/L 45-117 [facility] ALT [Catalytic activity/Vol] 23 U/L 13-56 [facility] Globulin (S) [Mass/Vol] 3.7 g/dL 2.2-4.2 [facility] Lipase [Catalytic activity/Vol] 88 U/L 13-75 [facility] Comment on above: Please note:LIPASE r evised reference range effective 23. New Lipase methodology. Expected to produce lower values than the previous assay method. NEW Reference Range: 13 - 75 U/L Laboratory - Chemistry and C hemistry - challengeOrdered By: Caprice Jerry on 01-24-2024 CO2 [Moles/Vol] 29.0 mmol/L 21.0-32.0 [facility] Urea nitrogen/Creatinine [Mass ratio] 21.7 mg/mg 10-20 [facility] - Hematology and Cell countsOrdered By: Caprice Jerry on 01-24-2024 MCH (RBC) [Entitic mass] 32.1 pg 27.0-32.0 [facility] MCHC (RBC) [Mass/Vol] 33.4 g/dL 32-36 [facility] Nucleated RBC/100 WBC (Bld) [Ratio] 0 % 0-5 [facility] Platelet mean volume (Bld) [Entitic vol] 9.6 fL 6.2-12.0 [facility] Platelets (Bld) [#/Vol] 264 10*3/uL 150-450 [facility] No Panel InformationOrdered By: Ainsley Bean on 01-24-2024 Troponin I High Sensitivity 4 pg/mL 3.0-54.0 [facility] Comment on above: Please Note: [place] t Units and Gender Specific Reference Ranges. For more information see Policy Stat Procedure [place] High Sensitivity Troponin (TNIH) and attachments. No Panel InformationOrdered By: Caprice Jerry on 01-24-2024 Estimated GFR (MDRD) Amer 108 mL/min >60 [facility] Comment on above: GFR Calc Estimated GFR (MDRD) Non-Af Amer 90 mL/min >60 [facility] Comment on above: Non- GFR Calc RBC Auto (Bld) [#/Vol]Ordere d By: Caprice Jerry on 01-24-2024 RBC (Bld) [#/Vol] 3.90 10*6/uL 4.2-5.4 [facility] Serum or plasma calcium alphonso urement (mass/volume)Ordered By: Caprice Jerry on 01-24-2024 Calcium [Mass/Vol] 10.1 mg/dL 8.5-10.1 [facility] Serum or plasma creatinine m easurement (mass/volume)Ordered By: Caprice Jerry on 01-24-2024 Creatinine [Mass/Vol] 0.74 mg/dL 0.55-1.02 [facility] Comment on above: The validity of the calculated GFR & GFRAA in patients over 70 years has not been determined. Clinical correlation is essential. Serum or plasma urea nitroge n measurement (mass/volume)Ordered By: Caprice Jerry on 01-24-2024 Urea nitrogen [Mass/Vol] 16 mg/dL 7-18 [facility] Thin prep Papanicolaou smear with manual screeningOrdered By: Ainsley Bean on 01-24-2024 Thin prep Papanicolaou smear with manual screening 3.4 g/dL 3.2-5.0 [facility] Thin prep Papanicolaou smear with manual screening 25 U/L 15-37 [facility] Comment on above: Slight Hemolysis, Re sult may be falsely increased. Thin prep Papanicolaou smear with manual screeningOrdered By: Caprice Jerry on 01-24-2024 Thin prep Papanicolaou smear with manual screening 5 5-15 [facility] Absolute lymphocyte countOrd ered By: Caprice Jerry on 10-10-2023 Lymphocytes Auto (Unsp spec) [#/Vol] 0.98 10*3/uL 0.83-4.51 [facility] Basophil percentageOrdered B y: Caprice Jerry on 10-10-2023 Basophils/100 WBC (Bld) 0.3 % 0-1 [facility] Bilirubin [Mass/Vol] 1.00 mg/dL 0.20-1.00 [facility] Comment on above: For patients on eltr ombopag therapy, use of Dimension [place] TBIL is not recommended. Chloride [Moles/Vol] 103 mmol/L 98-107 [facility] Eosinophils/100 WBC (Bld) 0.2 % 0-5 [facility] Glucose [Mass/Vol] 175 mg/dL 74-106 [facility] Comment on above: Fasting Glucose resu lt greater than or equal to 126 mg/dL suggests DIABETES MELLITUS per A.D.A. criteria. Neutrophils (Bld) [#/Vol] 7.6 10*3/uL 2.0-7.7 [facility] Neutrophils/100 WBC (Bld) 81.6 % 47-70 [facility] Potassium [Moles/Vol] 3.9 mmol/L 3.5-5.1 [facility] Protein [Mass/Vol] 7.3 g/dL 6.4-8.2 [facility] Sodium [Moles/Vol] 133 mmol/L 136-145 [facility] WBC (Bld) [#/Vol] 9.3 10*3/uL 4.4-11.0 [facility] Blood erythrocytes count (nu mber/volume)Ordered By: Caprice Jerry on 10-10-2023 RBC (Bld) [#/Vol] 4.14 10*6/uL 4.2-5.4 [facility] Blood hemoglobin measurement (mass/volume)Ordered By: Caprice Jerry on 10-10-2023 Hemoglobin (Bld) [Mass/Vol] 13.5 g/dL 12.0-15.0 [facility] Blood lymphocytes/100 leukoc ytesOrdered By: Caprice Jerry on 10-10-2023 Lymphocytes/100 WBC (Bld) 10.6 % 19-41 [facility] Blood monocytes/100 leukocyt esOrdered By: Caprice Jerry on 10-10-2023 Monocytes/100 WBC (Bld) 7.0 % 0-10 [facility] Blood platelet mean volumeOr dered By: Caprice Jerry on 10-10-2023 Platelet mean volume (Bld) [Entitic vol] 9.7 fL 6.2-12.0 [facility] Determination of erythrocyte mean corpuscular volume (MCV)Ordered By: Caprice Jerry on 10-10-2023 MCV (RBC) [Entitic vol] 98.3 fL 81-99 [facility] Direct bilirubinOrdered By: Caprice Jerry on 10-10-2023 Bilirubin.direct [Mass/Vol] 0.30 mg/dL 0.00-0.30 [facility] Hematocrit Auto (Bld) [Volum e fraction]Ordered By: Caprice Jerry on 10-10-2023 Hematocrit (Bld) [Volume fraction] 40.7 % 37-47 [facility] Influenza virus A and B and SARS-CoV-2 (COVID-19) Ag panel - Upper respiratory specimOrdered By: Caprice Jerry on 10-10-2023 SARS-CoV-2 (COVID-19) RNA ALLEY+probe Ql (Resp) [facility] Laboratory - Chemistry and C hemistry - challengeOrdered By: Caprice Jerry on 10-10-2023 ALP [Catalytic activity/Vol] 97 U/L 45-117 [facility] ALT [Catalytic activity/Vol] 54 U/L 13-56 [facility] CO2 [Moles/Vol] 22.0 mmol/L 21.0-32.0 [facility] Globulin (S) [Mass/Vol] 3.8 g/dL 2.2-4.2 [facility] Lipase [Catalytic activity/Vol] 45 U/L 13-75 [facility] Comment on above: Please note:LIPASE r evised reference range effective 23. New Lipase methodology. Expected to produce lower values than the previous assay method. NEW Reference Range: 13 - 75 U/L Urea nitrogen/Creatinine [Mass ratio] 8.9 mg/mg 10-20 [facility] - Hematology and Cell countsOrdered By: Caprice Jerry on 10-10-2023 Erythrocyte distribution width (RBC) [Entitic vol] 44.4 fL 35.1-43.9 [facility] Erythrocyte distribution width (RBC) [Ratio] 12.4 % 11.6-14.6 [facility] Immature granulocytes/100 WBC (Bld) 0.300 % 0.0-0.9 [facility] Comment on above: IG% - Immature Granu locytes (promyelocytes, myelocytes and metamyelocytes) > 1% indicates that a LEFT SHIFT is Present. MCH (RBC) [Entitic mass] 32.6 pg 27.0-32.0 [facility] Nucleated RBC/100 WBC (Bld) [Ratio] 0 % 0-5 [facility] MCHC Auto (RBC) [Mass/Vol]Or dered By: Caprice Jerry on 10-10-2023 MCHC (RBC) [Mass/Vol] 33.2 g/dL 32-36 [facility] No Panel InformationOrdered By: Caprice Jerry on 10-10-2023 D-Dimer Quantitative (PE/DVT) 0.45 FEU/ug/m 0.27-0.49 [facility] Comment on above: NORMAL D-Dimer level (<0.50) indicates no DVT or PE. Estimated Creatinine Clearance Calc 31.78 ml/min [facility] Estimated GFR (MDRD) Amer 36 mL/min >60 [facility] Comment on above: GFR Calc Estimated GFR (MDRD) Non-Af Amer 30 mL/min >60 [facility] Comment on above: Non- GFR Calc Troponin I High Sensitivity 12 pg/mL 3.0-54.0 [facility] Comment on above: Please Note: [place] t Units and Gender Specific Reference Ranges. For more information see Policy Stat Procedure [place] High Sensitivity Troponin (TNIH) and attachments. Platelets bldOrdered By: Leona Jerry on 10-10-2023 Platelets (Bld) [#/Vol] 255 10*3/uL 150-450 [facility] Serum or plasma albumin alphonso urement (mass/volume)Ordered By: Caprice Jerry on 10-10-2023 Albumin [Mass/Vol] 3.5 g/dL 3.2-5.0 [facility] Serum or plasma calcium alphonso urement (mass/volume)Ordered By: Caprice Jerry on 10-10-2023 Calcium [Mass/Vol] 8.1 mg/dL 8.5-10.1 [facility] Serum or plasma creatinine m easurement (mass/volume)Ordered By: Caprice Jerry on 10-10-2023 Creatinine [Mass/Vol] 1.91 mg/dL 0.55-1.02 [facility] Comment on above: The validity of the calculated GFR & GFRAA in patients over 70 years has not been determined. Clinical correlation is essential. Serum or plasma urea nitroge n measurement (mass/volume)Ordered By: Caprice Jerry on 10-10-2023 Urea nitrogen [Mass/Vol] 17 mg/dL -18 [facility] Thin prep Papanicolaou smear with manual screeningOrdered By: Caprice Jerry on 10-10-2023 Thin prep Papanicolaou smear with manual screening 68 U/L 15-37 [facility] Thin prep Papanicolaou smear with manual screening 8 5-15 [facility] No Panel Informationon 09-15 POC SARS CoV-2 Antigen Negative [facility] Basophil percentageOrdered B y: Jim Manriquez on 08-25-2023 Bilirubin [Mass/Vol] 0.20 mg/dL 0.20-1.00 [facility] Comment on above: For patients on eltr ombopag therapy, use of Dimension [place] TBIL is not recommended. Cholesterol [Mass/Vol] 224 mg/dL <200 [facility] Comment on above: <200 mg/dL Desirable 200-240 mg/dL Borderline >240 mg/dL High Risk Protein [Mass/Vol] 7.2 g/dL 6.4-8.2 [facility] Triglyceride [Mass/Vol] 405 mg/dL <199 [facility] Comment on above: The drugs N-Acetylcy steine and Metamizole may falsely depress this assay. TRIGLYCERIDE IS GREATER THAN 400 mg/dL. LDL RESULT IS INVALID AND WILL NOT BE REPORTED.Serum Triglycerides Reference Interval Normal <150 mg/dL Borderline high 150 - 199 mg/dL High 200 - 499 mg/dL Very High > or = 500 mg/dL Direct bilirubinOrdered By: Jim Manriquez on 08-25-2023 Bilirubin.direct [Mass/Vol] 0.10 mg/dL 0.00-0.30 [facility] - Chemistry and C hemistry - challengeOrdered By: Jim Manriquez on 08-25-2023 ALP [Catalytic activity/Vol] 97 U/L 45-117 [facility] ALT [Catalytic activity/Vol] 88 U/L 13-56 [facility] Globulin (S) [Mass/Vol] 3.7 g/dL 2.2-4.2 [facility] Lipase [Catalytic activity/Vol] 53 U/L 13-75 [facility] Comment on above: Please note:LIPASE r evised reference range effective 23. New Lipase methodology. Expected to produce lower values than the previous assay method. NEW Reference Range: 13 - 75 U/L Serum or plasma albumin alphonso urement (mass/volume)Ordered By: Jim Manriquez on 08-25-2023 Albumin [Mass/Vol] 3.5 g/dL 3.2-5.0 [facility] Serum or plasma cholesterol in HDL measurement (mass/volume)Ordered By: Jim Manriquez on 08-25-2023 Cholesterol in HDL [Mass/Vol] 61 mg/dL >40 [facility] Comment on above: The drugs N-Acetylcy steine and Metamizole may falsely depress this assay. Reference Range HDL <40 mg/dL Low HDL Cholesterol HDL >or= 60 mg/dL High HDL Cholesterol Serum or plasma cholesterol in VLDL measurement (mass/volume)Ordered By: Jim Manriquez on 08-25-2023 Cholesterol in VLDL [Mass/Vol] TNP [facility] Comment on above: Test not performed Serum or plasma low density lipoprotein (LDL) cholesterol measurement (mass/volume)Ordered By: Jim Manriquez on 08-25-2023 Cholesterol in LDL [Mass/Vol] TNP [facility] Comment on above: Test not performed Thin prep Papanicolaou smear with manual screeningOrdered By: Jim Manriquez on 08-25-2023 Thin prep Papanicolaou smear with manual screening 43 U/L 15-37 [facility] Absolute lymphocyte countOrd ered By: Jennifer Davila on 08-23-2023 Lymphocytes Auto (Unsp spec) [#/Vol] 2.29 10*3/uL 0.83-4.51 [facility] Basophil percentageOrdered B y: Jennifer Davila on 08-23-2023 Basophil percentage 0 SEEN /hpf 0-5 [facility] Basophils/100 WBC (Bld) 0.5 % 0-1 [facility] Bilirubin [Mass/Vol] 0.30 mg/dL 0.20-1.00 [facility] Comment on above: For patients on eltr ombopag therapy, use of Dimension [place] TBIL is not recommended. Chloride [Moles/Vol] 103 mmol/L 98-107 [facility] Eosinophils/100 WBC (Bld) 1.6 % 0-5 [facility] Glucose [Mass/Vol] 205 mg/dL 74-106 [facility] Comment on above: Glucose result great er than or equal to 200 mg/dLsuggests DIABETES MELLITUS per A.D.A. criteria. Neutrophils (Bld) [#/Vol] 7.5 10*3/uL 2.0-7.7 [facility] Neutrophils/100 WBC (Bld) 69.4 % 47-70 [facility] Potassium [Moles/Vol] 4.3 mmol/L 3.5-5.1 [facility] Protein [Mass/Vol] 7.8 g/dL 6.4-8.2 [facility] Sodium [Moles/Vol] 135 mmol/L 136-145 [facility] WBC (Bld) [#/Vol] 10.8 10*3/uL 4.4-11.0 [facility] Bilirubin Test strip Ql (U)O rdered By: Jennifer Davila on 08-23-2023 Bilirubin Ql (U) Negative Negative [facility] Blood erythrocytes count (nu mber/volume)Ordered By: Jennifer Davila on 08-23-2023 RBC (Bld) [#/Vol] 4.30 10*6/uL 4.2-5.4 [facility] Blood hemoglobin measurement (mass/volume)Ordered By: Jennifer Davila on 08-23-2023 Hemoglobin (Bld) [Mass/Vol] 14.0 g/dL 12.0-15.0 [facility] Blood lymphocytes/100 leukoc ytesOrdered By: Jennifer Davila on 08-23-2023 Lymphocytes/100 WBC (Bld) 21.3 % 19-41 [facility] Blood monocytes/100 leukocyt esOrdered By: Jennifer Davila on 08-23-2023 Monocytes/100 WBC (Bld) 6.7 % 0-10 [facility] Blood platelet mean volumeOr dered By: Jennifer Davila on 08-23-2023 Platelet mean volume (Bld) [Entitic vol] 9.6 fL 6.2-12.0 [facility] Determination of erythrocyte mean corpuscular volume (MCV)Ordered By: Jennifer Davila on 08-23-2023 MCV (RBC) [Entitic vol] 97.9 fL 81-99 [facility] Hematocrit Auto (Bld) [Volum e fraction]Ordered By: Jennifer Davila on 08-23-2023 Hematocrit (Bld) [Volume fraction] 42.1 % 37-47 [facility] Ketones Test strip Ql (U)Ord ered By: Jennifer Davila on 08-23-2023 Ketones Ql (U) Negative Negative [facility] - Chemistry and C hemistry - challengeOrdered By: Jennifer Davila on 08-23-2023 ALP [Catalytic activity/Vol] 69 U/L 45-117 [facility] ALT [Catalytic activity/Vol] 26 U/L 13-56 [facility] CO2 [Moles/Vol] 24.0 mmol/L 21.0-32.0 [facility] Globulin (S) [Mass/Vol] 4.2 g/dL 2.2-4.2 [facility] Lipase [Catalytic activity/Vol] 41 U/L 13-75 [facility] Comment on above: Please note:LIPASE r evised reference range effective 23. New Lipase methodology. Expected to produce lower values than the previous assay method. NEW Reference Range: 13 - 75 U/L Urea nitrogen/Creatinine [Mass ratio] 9.5 mg/mg 10-20 [facility] - Hematology and Cell countsOrdered By: Jennifer Davila on 08-23-2023 Erythrocyte distribution width (RBC) [Entitic vol] 45.9 fL 35.1-43.9 [facility] Erythrocyte distribution width (RBC) [Ratio] 12.8 % 11.6-14.6 [facility] Immature granulocytes/100 WBC (Bld) 0.500 % 0.0-0.9 [facility] Comment on above: IG% - Immature Granu locytes (promyelocytes, myelocytes and metamyelocytes) > 1% indicates that a LEFT SHIFT is Present. MCH (RBC) [Entitic mass] 32.6 pg 27.0-32.0 [facility] Nucleated RBC/100 WBC (Bld) [Ratio] 0 % 0-5 [facility] MCHC Auto (RBC) [Mass/Vol]Or dered By: Jennifer Davila on 08-23-2023 MCHC (RBC) [Mass/Vol] 33.3 g/dL 32-36 [facility] Mucus LM Ql (Urine sed)Order ed By: Jennifer Davila on 08-23-2023 Mucus Ql (Urine sed) 0 SEEN /hpf [facility] Nitrite Test strip Ql (U)Ord ered By: Jennifer Davila on 08-23-2023 Nitrite Ql (U) Negative Negative [facility] No Panel InformationOrdered By: Jennifer Davila on 08-23-2023 Estimated Creatinine Clearance Calc 57.81 ml/min [facility] Estimated GFR (MDRD) Amer 72 mL/min >60 [facility] Comment on above: GFR Calc Estimated GFR (MDRD) Non-Af Amer 60 mL/min >60 [facility] Comment on above: Non- GFR Calc Troponin I High Sensitivity 3 pg/mL 3.0-54.0 [facility] Comment on above: Please Note: [place] t Units and Gender Specific Reference Ranges. For more information see Policy Stat Procedure [place] High Sensitivity Troponin (TNIH) and attachments. Platelets bldOrdered By: Kole Davila on 08-23-2023 Platelets (Bld) [#/Vol] 264 10*3/uL 150-450 [facility] Protein Test strip Ql (U)Ord ered By: Jennifer Davila on 08-23-2023 Protein Ql (U) Negative Negative [facility] Serum or plasma albumin alphonso urement (mass/volume)Ordered By: Jennifer Davila on 08-23-2023 Albumin [Mass/Vol] 3.6 g/dL 3.2-5.0 [facility] Serum or plasma albumin/glob ulin mass ratioOrdered By: Jennifer Davila on 08-23-2023 Albumin/Globulin [Mass ratio] 0.9 {ratio} 0.9-2.4 [facility] Serum or plasma calcium alphonso urement (mass/volume)Ordered By: Jennifer Davila on 08-23-2023 Calcium [Mass/Vol] 8.8 mg/dL 8.5-10.1 [facility] Serum or plasma creatinine m easurement (mass/volume)Ordered By: Jennifer Davila on 08-23-2023 Creatinine [Mass/Vol] 1.05 mg/dL 0.55-1.02 [facility] Comment on above: The validity of the calculated GFR & GFRAA in patients over 70 years has not been determined. Clinical correlation is essential. Serum or plasma urea nitroge n measurement (mass/volume)Ordered By: Jennifer Davila on 08-23-2023 Urea nitrogen [Mass/Vol] 10 mg/dL 7-18 [facility] Squamous epithelial cells de tection in urine sediment by light microscopyOrdered By: Jennifer Davila on 08-23-2023 Epithelial cells.squamous LM Ql (Urine sed) 0-5 SEEN /hpf 5-10 [facility] Thin prep Papanicolaou smear with manual screeningOrdered By: Jennifer Davila on 08-23-2023 Thin prep Papanicolaou smear with manual screening 18 U/L 15-37 [facility] Thin prep Papanicolaou smear with manual screening 8 5-15 [facility] Urine blood detectionOrdered By: Jennifer Davila on 08-23-2023 RBC Ql (U) Negative Negative [facility] RBC Ql (U) 0 SEEN /hpf 0-5 [facility] Urine clarityOrdered By: Kole Davial on 08-23-2023 Clarity (U) Clear Clear [facility] Urine color determinationOrd ered By: Jennifer Davila on 08-23-2023 Color (U) Yellow Yellow [facility] Urine glucose detectionOrder ed By: Jennifer Davila on 08-23-2023 Glucose Ql (U) 1000 mg/dl Normal [facility] Urine leukocyte esterase det ection by dipstickOrdered By: Jennifer Davila on 08-23-2023 Leukocyte esterase Test strip Ql (U) Negative Negative [facility] Urine pHOrdered By: Suha Davila on 08-23-2023 pH (U) 6.0 [pH] 5.0 - 8.0 [facility] Urine sediment bacteria coun t by microscopy (number/high power field)Ordered By: Jennifer Davila on 08-23-2023 Bacteria LM.HPF (Urine sed) [#/Area] 0 /[HPF] None Seen [facility] Urine specific gravity measu rementOrdered By: Jennifer Davila on 08-23-2023 Specific gravity (U) [Rel density] 1.010 1.002-1.030 [facility] Urobilinogen Auto test strip Ql (U)Ordered By: Jennifer Davila on 08-23-2023 Urobilinogen Ql (U) Normal mg/dl Normal [facility] Absolute lymphocyte countOrd ered By: Caprice Jerry on 07-29-2023 Lymphocytes Auto (Unsp spec) [#/Vol] 2.24 10*3/uL 0.83-4.51 [facility] Basophil percentageOrdered B y: Caprice Jerry on 07-29-2023 Basophils/100 WBC (Bld) 0.5 % 0-1 [facility] Bilirubin [Mass/Vol] 0.30 mg/dL 0.20-1.00 [facility] Comment on above: For patients on eltr ombopag therapy, use of Dimension [place] TBIL is not recommended. Chloride [Moles/Vol] 102 mmol/L 98-107 [facility] Eosinophils/100 WBC (Bld) 1.6 % 0-5 [facility] Glucose [Mass/Vol] 173 mg/dL 74-106 [facility] Comment on above: Fasting Glucose resu lt greater than or equal to 126 mg/dL suggests DIABETES MELLITUS per A.D.A. criteria. Neutrophils (Bld) [#/Vol] 5.6 10*3/uL 2.0-7.7 [facility] Neutrophils/100 WBC (Bld) 63.7 % 47-70 [facility] Potassium [Moles/Vol] 3.9 mmol/L 3.5-5.1 [facility] Protein [Mass/Vol] 7.3 g/dL 6.4-8.2 [facility] Sodium [Moles/Vol] 135 mmol/L 136-145 [facility] WBC (Bld) [#/Vol] 8.8 10*3/uL 4.4-11.0 [facility] Beta hCG serum qualOrdered B y: Caprice Jerry on 07-29-2023 Beta HCG ( test) Ql Negative [facility] Blood erythrocytes count (nu mber/volume)Ordered By: Caprice Jerry on 07-29-2023 RBC (Bld) [#/Vol] 3.94 10*6/uL 4.2-5.4 [facility] Blood hemoglobin measurement (mass/volume)Ordered By: Caprice Jerry on 07-29-2023 Hemoglobin (Bld) [Mass/Vol] 13.1 g/dL 12.0-15.0 [facility] Blood lymphocytes/100 leukoc ytesOrdered By: Caprice Jerry on 07-29-2023 Lymphocytes/100 WBC (Bld) 25.4 % 19-41 [facility] Blood monocytes/100 leukocyt esOrdered By: Caprice Jerry on 07-29-2023 Monocytes/100 WBC (Bld) 8.5 % 0-10 [facility] Blood platelet mean volumeOr dered By: Caprice Jerry on 07-29-2023 Platelet mean volume (Bld) [Entitic vol] 9.6 fL 6.2-12.0 [facility] Determination of erythrocyte mean corpuscular volume (MCV)Ordered By: Caprice Jerry on 07-29-2023 MCV (RBC) [Entitic vol] 97.7 fL 81-99 [facility] Direct bilirubinOrdered By: Caprice Jerry on 07-29-2023 Bilirubin.direct [Mass/Vol] 0.08 mg/dL 0.00-0.30 [facility] Hematocrit Auto (Bld) [Volum e fraction]Ordered By: Caprice Jerry on 07-29-2023 Hematocrit (Bld) [Volume fraction] 38.5 % 37-47 [facility] - Chemistry and C hemistry - challengeOrdered By: Caprice Jerry on 07-29-2023 ALP [Catalytic activity/Vol] 93 U/L 45-117 [facility] ALT [Catalytic activity/Vol] 45 U/L 13-56 [facility] CO2 [Moles/Vol] 26.0 mmol/L 21.0-32.0 [facility] Globulin (S) [Mass/Vol] 3.8 g/dL 2.2-4.2 [facility] Lipase [Catalytic activity/Vol] 32 U/L 13-75 [facility] Comment on above: Please note:LIPASE r evised reference range effective 23. New Lipase methodology. Expected to produce lower values than the previous assay method. NEW Reference Range: 13 - 75 U/L Urea nitrogen/Creatinine [Mass ratio] 12.5 mg/mg 10-20 [facility] - Hematology and Cell countsOrdered By: Caprice Jerry on 07-29-2023 Erythrocyte distribution width (RBC) [Entitic vol] 45.1 fL 35.1-43.9 [facility] Erythrocyte distribution width (RBC) [Ratio] 12.7 % 11.6-14.6 [facility] Immature granulocytes/100 WBC (Bld) 0.300 % 0.0-0.9 [facility] Comment on above: IG% - Immature Granu locytes (promyelocytes, myelocytes and metamyelocytes) > 1% indicates that a LEFT SHIFT is Present. MCH (RBC) [Entitic mass] 33.2 pg 27.0-32.0 [facility] Nucleated RBC/100 WBC (Bld) [Ratio] 0 % 0-5 [facility] MCHC Auto (RBC) [Mass/Vol]Or dered By: Caprice Jerry on 07-29-2023 MCHC (RBC) [Mass/Vol] 34.0 g/dL 32-36 [facility] No Panel InformationOrdered By: Caprice Jerry on 07-29-2023 Troponin I High Sensitivity 4 pg/mL 3.0-54.0 [facility] Comment on above: Please Note: [place] t Units and Gender Specific Reference Ranges. For more information see Policy Stat Procedure [place] High Sensitivity Troponin (TNIH) and attachments. Estimated Creatinine Clearance Calc 68.98 ml/min [facility] Estimated GFR (MDRD) Amer 89 mL/min >60 [facility] Comment on above: GFR Calc Estimated GFR (MDRD) Non-Af Amer 74 mL/min >60 [facility] Comment on above: Non- GFR Calc Platelets bldOrdered By: Leona Jerry on 07-29-2023 Platelets (Bld) [#/Vol] 281 10*3/uL 150-450 [facility] Serum or plasma albumin alphonso urement (mass/volume)Ordered By: Caprice Jerry on 07-29-2023 Albumin [Mass/Vol] 3.5 g/dL 3.2-5.0 [facility] Serum or plasma calcium alphonso urement (mass/volume)Ordered By: Caprice Jerry on 07-29-2023 Calcium [Mass/Vol] 8.5 mg/dL 8.5-10.1 [facility] Serum or plasma creatinine m easurement (mass/volume)Ordered By: Caprice Jerry on 07-29-2023 Creatinine [Mass/Vol] 0.88 mg/dL 0.55-1.02 [facility] Comment on above: The validity of the calculated GFR & GFRAA in patients over 70 years has not been determined. Clinical correlation is essential. Serum or plasma urea nitroge n measurement (mass/volume)Ordered By: Caprice Jerry on 07-29-2023 Urea nitrogen [Mass/Vol] 11 mg/dL 7-18 [facility] Thin prep Papanicolaou smear with manual screeningOrdered By: Caprice Jerry on 07-29-2023 Thin prep Papanicolaou smear with manual screening 24 U/L 15-37 [facility] Thin prep Papanicolaou smear with manual screening 7 5-15 [facility] Absolute lymphocyte countOrd ered By: Milana Garcia on 07-19-2023 Lymphocytes Auto (Unsp spec) [#/Vol] 2.51 10*3/uL 0.83-4.51 [facility] Basophil percentageOrdered B y: Milana Garcia on 07-19-2023 Basophil percentage 3.1 mg/dL 2.5-4.9 [facility] Basophils/100 WBC (Bld) 0.4 % 0-1 [facility] Bilirubin [Mass/Vol] 0.50 mg/dL 0.20-1.00 [facility] Comment on above: For patients on eltr ombopag therapy, use of Dimension [place] TBIL is not recommended. Chloride [Moles/Vol] 106 mmol/L 98-107 [facility] Eosinophils/100 WBC (Bld) 3.2 % 0-5 [facility] Glucose [Mass/Vol] 123 mg/dL 74-106 [facility] Comment on above: Fasting Glucose resu lt from 100 to 125 mg/dL suggests IMPAIRED HOMEOSTASIS per A.D.A. criteria. Neutrophils (Bld) [#/Vol] 3.7 10*3/uL 2.0-7.7 [facility] Neutrophils/100 WBC (Bld) 52.0 % 47-70 [facility] Potassium [Moles/Vol] 3.5 mmol/L 3.5-5.1 [facility] Protein [Mass/Vol] 6.9 g/dL 6.4-8.2 [facility] Sodium [Moles/Vol] 140 mmol/L 136-145 [facility] WBC (Bld) [#/Vol] 7.2 10*3/uL 4.4-11.0 [facility] Blood erythrocytes count (nu mber/volume)Ordered By: Milana Garcia on 07-19-2023 RBC (Bld) [#/Vol] 3.83 10*6/uL 4.2-5.4 [facility] Blood hemoglobin measurement (mass/volume)Ordered By: Milana Garcia on 07-19-2023 Hemoglobin (Bld) [Mass/Vol] 12.3 g/dL 12.0-15.0 [facility] Blood lymphocytes/100 leukoc ytesOrdered By: Milana Garcia on 07-19-2023 Lymphocytes/100 WBC (Bld) 35.1 % 19-41 [facility] Blood monocytes/100 leukocyt esOrdered By: Milana Garcia on 07-19-2023 Monocytes/100 WBC (Bld) 9.0 % 0-10 [facility] Blood platelet mean volumeOr dered By: Milana Garcia on 07-19-2023 Platelet mean volume (Bld) [Entitic vol] 9.6 fL 6.2-12.0 [facility] Determination of erythrocyte mean corpuscular volume (MCV)Ordered By: Milana Garcia on 07-19-2023 MCV (RBC) [Entitic vol] 97.9 fL 81-99 [facility] Hematocrit Auto (Bld) [Volum e fraction]Ordered By: Milana Garcia on 07-19-2023 Hematocrit (Bld) [Volume fraction] 37.5 % 37-47 [facility] - Chemistry and C hemistry - challengeOrdered By: Milana Garcia on 07-19-2023 ALP [Catalytic activity/Vol] 68 U/L 45-117 [facility] ALT [Catalytic activity/Vol] 28 U/L 13-56 [facility] CO2 [Moles/Vol] 27.0 mmol/L 21.0-32.0 [facility] Cobalamin (Vitamin B12) [Mass/Vol] 534 pg/mL 211-911 [facility] Globulin (S) [Mass/Vol] 3.6 g/dL 2.2-4.2 [facility] Magnesium [Mass/Vol] 1.6 mg/dL 1.6-2.6 [facility] Urea nitrogen/Creatinine [Mass ratio] 10.4 mg/mg 10-20 [facility] - Hematology and Cell countsOrdered By: Milana Garcia on 07-19-2023 Erythrocyte distribution width (RBC) [Entitic vol] 43.8 fL 35.1-43.9 [facility] Erythrocyte distribution width (RBC) [Ratio] 12.3 % 11.6-14.6 [facility] Immature granulocytes/100 WBC (Bld) 0.300 % 0.0-0.9 [facility] Comment on above: IG% - Immature Granu locytes (promyelocytes, myelocytes and metamyelocytes) > 1% indicates that a LEFT SHIFT is Present. MCH (RBC) [Entitic mass] 32.1 pg 27.0-32.0 [facility] Nucleated RBC/100 WBC (Bld) [Ratio] 0 % 0-5 [facility] MCHC Auto (RBC) [Mass/Vol]Or dered By: Milana Garcia on 07-19-2023 MCHC (RBC) [Mass/Vol] 32.8 g/dL 32-36 [facility] No Panel InformationOrdered By: Milana Garcia on 07-19-2023 Estimated GFR (MDRD) Amer 121 mL/min >60 [facility] Comment on above: GFR Calc Estimated GFR (MDRD) Non-Af Amer 100 mL/min >60 [facility] Comment on above: Non- GFR Calc Thyroid Stimulating Hormone (TSH) 1.07 uIU/mL 0.358-3.74 [facility] Platelets bldOrdered By: Yamel Garcia on 07-19-2023 Platelets (Bld) [#/Vol] 245 10*3/uL 150-450 [facility] Serum or plasma albumin alphonso urement (mass/volume)Ordered By: Milana Garcia on 07-19-2023 Albumin [Mass/Vol] 3.3 g/dL 3.2-5.0 [facility] Serum or plasma albumin/glob ulin mass ratioOrdered By: Milana Garcia on 07-19-2023 Albumin/Globulin [Mass ratio] 0.9 {ratio} 0.9-2.4 [facility] Serum or plasma calcium alphonos urement (mass/volume)Ordered By: Milana Garcia on 07-19-2023 Calcium [Mass/Vol] 8.4 mg/dL 8.5-10.1 [facility] Serum or plasma creatinine m easurement (mass/volume)Ordered By: Milana Garcia on 07-19-2023 Creatinine [Mass/Vol] 0.68 mg/dL 0.55-1.02 [facility] Comment on above: The validity of the calculated GFR & GFRAA in patients over 70 years has not been determined. Clinical correlation is essential. Serum or plasma folate measu rement (mass/volume)Ordered By: Milana Garcia on 07-19-2023 Folate [Mass/Vol] 58.30 ng/mL 3.1-55.4 [facility] Serum or plasma urea nitroge n measurement (mass/volume)Ordered By: Milana Garcia on 07-19-2023 Urea nitrogen [Mass/Vol] 7 mg/dL 7-18 [facility] Thin prep Papanicolaou smear with manual screeningOrdered By: Milana Garcia on 07-19-2023 Thin prep Papanicolaou smear with manual screening 19 U/L 15-37 [facility] Thin prep Papanicolaou smear with manual screening 7 5-15 [facility] No Panel InformationOrdered By: Dr. Jerry on 05-25-2023 Troponin I High Sensitivity 3 pg/mL 3.0-54.0 [facility] Comment on above: Please Note: [place] Units and Gender Specific Reference Ranges. For more information see Policy Stat Procedure [place] High Sensitivity Troponin (TNIH) and attachments. Absolute lymphocyte countOrd ered By: Dr. Jerry on 05-24-2023 Lymphocytes Auto (Unsp spec) [#/Vol] 3.25 10*3/uL 0.83-4.51 [facility] Basophil percentageOrdered B y: Dr. Jerry on 05-24-2023 Basophil percentage 0 SEEN /hpf 0-5 [facility] Basophils/100 WBC (Bld) 0.7 % 0-1 [facility] Bilirubin [Mass/Vol] 0.20 mg/dL 0.20-1.00 [facility] Comment on above: For patients on eltr ombopag therapy, use of Dimension [place] TBIL is not recommended. Chloride [Moles/Vol] 112 mmol/L 98-107 [facility] Eosinophils/100 WBC (Bld) 2.2 % 0-5 [facility] Glucose [Mass/Vol] 127 mg/dL 74-106 [facility] Comment on above: Fasting Glucose resu lt greater than or equal to 126 mg/dL suggests DIABETES MELLITUS per A.D.A. criteria. Neutrophils (Bld) [#/Vol] 2.9 10*3/uL 2.0-7.7 [facility] Neutrophils/100 WBC (Bld) 40.3 % 47-70 [facility] Potassium [Moles/Vol] 5.9 mmol/L 3.5-5.1 [facility] Comment on above: Moderate Hemolysis, Result may be falsely increased. Protein [Mass/Vol] 6.7 g/dL 6.4-8.2 [facility] Sodium [Moles/Vol] 138 mmol/L 136-145 [facility] WBC (Bld) [#/Vol] 7.2 10*3/uL 4.4-11.0 [facility] Beta hCG serum qualOrdered B y: Dr. Jerry on 05-24-2023 Beta HCG ( test) Ql Negative [facility] Bilirubin Test strip Ql (U)O rdered By: Dr. Jerry on 05-24-2023 Bilirubin Ql (U) Negative Negative [facility] Blood erythrocytes count (nu mber/volume)Ordered By: Dr. Jerry on 05-24-2023 RBC (Bld) [#/Vol] 3.88 10*6/uL 4.2-5.4 [facility] Blood hemoglobin measurement (mass/volume)Ordered By: Dr. Jerry on 05-24-2023 Hemoglobin (Bld) [Mass/Vol] 12.9 g/dL 12.0-15.0 [facility] Blood lymphocytes/100 leukoc ytesOrdered By: Dr. Jerry on 05-24-2023 Lymphocytes/100 WBC (Bld) 45.0 % 19-41 [facility] Blood monocytes/100 leukocyt esOrdered By: Dr. Jerry on 05-24-2023 Monocytes/100 WBC (Bld) 11.4 % 0-10 [facility] Blood platelet mean volumeOr dered By: Dr. Jerry on 05-24-2023 Platelet mean volume (Bld) [Entitic vol] 9.8 fL 6.2-12.0 [facility] Determination of erythrocyte mean corpuscular volume (MCV)Ordered By: Dr. Jerry on 05-24-2023 MCV (RBC) [Entitic vol] 100.0 fL 81-99 [facility] Direct bilirubinOrdered By: Dr. Jerry on 05-24-2023 Bilirubin.direct [Mass/Vol] mg/dL 0.00-0.30 [facility] Hematocrit Auto (Bld) [Volum e fraction]Ordered By: Dr. Jerry on 05-24-2023 Hematocrit (Bld) [Volume fraction] 38.8 % 37-47 [facility] Ketones Test strip Ql (U)Ord ered By: Dr. Jerry on 05-24-2023 Ketones Ql (U) Negative Negative [facility] Laboratory - Chemistry and C hemistry - challengeOrdered By: Dr. Jerry on 05-24-2023 ALP [Catalytic activity/Vol] 57 U/L 45-117 [facility] ALT [Catalytic activity/Vol] 27 U/L 13-56 [facility] CO2 [Moles/Vol] 19.0 mmol/L 21.0-32.0 [facility] Globulin (S) [Mass/Vol] 3.8 g/dL 2.2-4.2 [facility] Lipase [Catalytic activity/Vol] 64 U/L 13-75 [facility] Comment on above: Please note:LIPASE r evised reference range effective 23. New Lipase methodology. Expected to produce lower values than the previous assay method. NEW Reference Range: 13 - 75 U/L Urea nitrogen/Creatinine [Mass ratio] 9.1 mg/mg 10-20 [facility] Laboratory - Hematology and Cell countsOrdered By: Dr. Jerry on 05-24-2023 Erythrocyte distribution width (RBC) [Entitic vol] 46.2 fL 35.1-43.9 [facility] Erythrocyte distribution width (RBC) [Ratio] 12.6 % 11.6-14.6 [facility] Immature granulocytes/100 WBC (Bld) 0.400 % 0.0-0.9 [facility] Comment on above: IG% - Immature Granu locytes (promyelocytes, myelocytes and metamyelocytes) > 1% indicates that a LEFT SHIFT is Present. MCH (RBC) [Entitic mass] 33.2 pg 27.0-32.0 [facility] Nucleated RBC/100 WBC (Bld) [Ratio] 0 % 0-5 [facility] ([facility]BC) [Mass/Vol]Or dered By: Dr. Jerry on 05-24-2023 MCHC (RBC) [Mass/Vol] 33.2 g/dL 32-36 [facility] Mucus LM Ql (Urine sed)Order ed By: Dr. Jerry on 05-24-2023 Mucus Ql (Urine sed) 0 SEEN /hpf [facility] Nitrite Test strip Ql (U)Ord ered By: Dr. Jerry on 05-24-2023 Nitrite Ql (U) Negative Negative [facility] No Panel InformationOrdered By: Dr. Jerry on 05-24-2023 Estimated Creatinine Clearance Calc 45.99 ml/min [facility] Estimated GFR (MDRD) Amer 56 mL/min >60 [facility] Comment on above: GFR Calc Estimated GFR (MDRD) Non-Af Amer 46 mL/min >60 [facility] Comment on above: Non- GFR Calc Ethyl Alcohol Level 193.0 mg/dL [facility] Comment on above: The serum:whole bloo d ethanol ratio is approximately 1.14and varies slightly with hematocrit. Medical Alcohol reference interval and critical value innon-tolerant individuals; 50 - 100 Impairment 100 Intoxication 100 - 250 Severe Poisoning 250 - 400 Deep/possible fatal coma Platelets bldOrdered By: Dr. Jerry on 05-24-2023 Platelets (Bld) [#/Vol] 276 10*3/uL 150-450 [facility] Protein Test strip Ql (U)Ord ered By: Dr. Jerry on 05-24-2023 Protein Ql (U) Negative Negative [facility] Serum or plasma acetone alphonso urement (mass/volume)Ordered By: Dr. Jerry on 05-24-2023 Acetone [Mass/Vol] Negative NEG [facility] Serum or plasma albumin alphonso urement (mass/volume)Ordered By: Dr. Jerry on 05-24-2023 Albumin [Mass/Vol] 2.9 g/dL 3.2-5.0 [facility] Serum or plasma calcium alphonso urement (mass/volume)Ordered By: Dr. Jerry on 05-24-2023 Calcium [Mass/Vol] 7.5 mg/dL 8.5-10.1 [facility] Serum or plasma creatinine m easurement (mass/volume)Ordered By: Dr. Jerry on 05-24-2023 Creatinine [Mass/Vol] 1.32 mg/dL 0.55-1.02 [facility] Comment on above: The validity of the calculated GFR & GFRAA in patients over 70 years has not been determined. Clinical correlation is essential. Serum or plasma urea nitroge n measurement (mass/volume)Ordered By: Dr. Jerry on 05-24-2023 Urea nitrogen [Mass/Vol] 12 mg/dL 7-18 [facility] Squamous epithelial cells de tection in urine sediment by light microscopyOrdered By: Dr. Jerry on 05-24-2023 Epithelial cells.squamous LM Ql (Urine sed) 0 SEEN /hpf 5-10 [facility] Thin prep Papanicolaou smear with manual screeningOrdered By: Dr. Jerry on 05-24-2023 Thin prep Papanicolaou smear with manual screening 47 U/L 15-37 [facility] Comment on above: Moderate Hemolysis, Result may be falsely increased. Thin prep Papanicolaou smear with manual screening 7 5-15 [facility] Urine blood detectionOrdered By: Dr. Jerry on 05-24-2023 RBC Ql (U) Negative Negative [facility] RBC Ql (U) 0 SEEN /hpf 0-5 [facility] Urine clarityOrdered By: Dr. Jerry on 05-24-2023 Clarity (U) Clear Clear [facility] Urine color determinationOrd ered By: Dr. Jerry on 05-24-2023 Color (U) Yellow Yellow [facility] Urine glucose detectionOrder ed By: Dr. Jerry on 05-24-2023 Glucose Ql (U) 1000 mg/dl Normal [facility] Urine leukocyte esterase det ection by dipstickOrdered By: Dr. Jerry on 05-24-2023 Leukocyte esterase Test strip Ql (U) Negative Negative [facility] Urine pHOrdered By: Dr. Maximiliano morris on 05-24-2023 pH (U) 6.5 [pH] 5.0 - 8.0 [facility] Urine sediment bacteria coun t by microscopy (number/high power field)Ordered By: Dr. Jerry on 05-24-2023 Bacteria LM.HPF (Urine sed) [#/Area] 0 /[HPF] None Seen [facility] Urine specific gravity measu rementOrdered By: Dr. Jerry on 05-24-2023 Specific gravity (U) [Rel density] 1.005 1.002-1.030 [facility] Urobilinogen Auto test strip Ql (U)Ordered By: Dr. Jerry on 05-24-2023 Urobilinogen Ql (U) Normal mg/dl Normal [facility] Basophil percentageOrdered B y: Milana Garcia on 05-19-2023 Basophil percentage 2.6 mg/dL 2.5-4.9 [facility] Bilirubin [Mass/Vol] 0.30 mg/dL 0.20-1.00 [facility] Comment on above: For patients on eltr ombopag therapy, use of Dimension [place] TBIL is not recommended. Protein [Mass/Vol] 7.2 g/dL 6.4-8.2 [facility] Direct bilirubinOrdered By: Milana Garcia on 05-19-2023 Bilirubin.direct [Mass/Vol] 0.11 mg/dL 0.00-0.30 [facility] Laboratory - Chemistry and C hemistry - challengeOrdered By: Milana Garcia on 05-19-2023 ALP [Catalytic activity/Vol] 69 U/L 45-117 [facility] ALT [Catalytic activity/Vol] 22 U/L 13-56 [facility] Cobalamin (Vitamin B12) [Mass/Vol] 361 pg/mL 211-911 [facility] Free T4 [Mass/Vol] 0.78 ng/dL 0.76-1.46 [facility] Globulin (S) [Mass/Vol] 3.8 g/dL 2.2-4.2 [facility] Magnesium [Mass/Vol] 1.8 mg/dL 1.6-2.6 [facility] No Panel InformationOrdered By: Milana Garcia on 05-19-2023 Thyroid Stimulating Hormone (TSH) 1.95 uIU/mL 0.358-3.74 [facility] Serum or plasma albumin alphonso urement (mass/volume)Ordered By: Milana Garcia on 05-19-2023 Albumin [Mass/Vol] 3.4 g/dL 3.2-5.0 [facility] Serum or plasma ferritin alexis surement (mass/volume)Ordered By: Milana Garcia on 05-19-2023 Ferritin [Mass/Vol] 69 ng/mL 8-252 [facility] Serum or plasma folate measu rement (mass/volume)Ordered By: Milana Garcia on 05-19-2023 Folate [Mass/Vol] 4.00 ng/mL 3.1-55.4 [facility] Thin prep Papanicolaou smear with manual screeningOrdered By: Milana Garcia on 05-19-2023 Thin prep Papanicolaou smear with manual screening 18 U/L 15-37 [facility] No Panel InformationOrdered By: Dr. Dyer on 05-05-2023 Troponin I High Sensitivity < 3 pg/mL 3.0-54.0 [facility] Comment on above: Please Note: [place] Units and Gender Specific Reference Ranges. For more information see Policy Stat Procedure [place] High Sensitivity Troponin (TNIH) and attachments. Absolute lymphocyte countOrd ered By: Dr. Dyer on 05-04-2023 Lymphocytes Auto (Unsp spec) [#/Vol] 3.17 10*3/uL 0.83-4.51 [facility] Basophil percentageOrdered B y: Dr. Dyer on 05-04-2023 Basophils/100 WBC (Bld) 0.4 % 0-1 [facility] Chloride [Moles/Vol] 105 mmol/L 98-107 [facility] Eosinophils/100 WBC (Bld) 2.7 % 0-5 [facility] Glucose [Mass/Vol] 103 mg/dL 74-106 [facility] Comment on above: Fasting Glucose resu lt from 100 to 125 mg/dL suggests IMPAIRED HOMEOSTASIS per A.D.A. criteria. Neutrophils (Bld) [#/Vol] 4.6 10*3/uL 2.0-7.7 [facility] Neutrophils/100 WBC (Bld) 51.3 % 47-70 [facility] Potassium [Moles/Vol] 3.4 mmol/L 3.5-5.1 [facility] Sodium [Moles/Vol] 138 mmol/L 136-145 [facility] WBC (Bld) [#/Vol] 8.9 10*3/uL 4.4-11.0 [facility] Blood erythrocytes count (nu mber/volume)Ordered By: Dr. Dyer on 05-04-2023 RBC (Bld) [#/Vol] 3.72 10*6/uL 4.2-5.4 [facility] Blood hemoglobin measurement (mass/volume)Ordered By: Dr. Dyer on 05-04-2023 Hemoglobin (Bld) [Mass/Vol] 12.1 g/dL 12.0-15.0 [facility] Blood lymphocytes/100 leukoc ytesOrdered By: Dr. Dyer on 05-04-2023 Lymphocytes/100 WBC (Bld) 35.6 % 19-41 [facility] Blood monocytes/100 leukocyt esOrdered By: Dr. Dyer on 05-04-2023 Monocytes/100 WBC (Bld) 9.4 % 0-10 [facility] Blood platelet mean volumeOr dered By: Dr. Dyer on 05-04-2023 Platelet mean volume (Bld) [Entitic vol] 9.4 fL 6.2-12.0 [facility] Determination of erythrocyte mean corpuscular volume (MCV)Ordered By: Dr. Dyer on 05-04-2023 MCV (RBC) [Entitic vol] 98.4 fL 81-99 [facility] Hematocrit Auto (Bld) [Volum e fraction]Ordered By: Dr. Dyer on 05-04-2023 Hematocrit (Bld) [Volume fraction] 36.6 % 37-47 [facility] Laboratory - Chemistry and C hemistry - challengeOrdered By: Dr. Dyer on 05-04-2023 CO2 [Moles/Vol] 27.0 mmol/L 21.0-32.0 [facility] Urea nitrogen/Creatinine [Mass ratio] 19.2 mg/mg 10-20 [facility] - Hematology and Cell countsOrdered By: Dr. Dyer on 05-04-2023 Erythrocyte distribution width (RBC) [Entitic vol] 47.8 fL 35.1-43.9 [facility] Erythrocyte distribution width (RBC) [Ratio] 13.3 % 11.6-14.6 [facility] Immature granulocytes/100 WBC (Bld) 0.600 % 0.0-0.9 [facility] Comment on above: IG% - Immature Granu locytes (promyelocytes, myelocytes and metamyelocytes) > 1% indicates that a LEFT SHIFT is Present. MCH (RBC) [Entitic mass] 32.5 pg 27.0-32.0 [facility] Nucleated RBC/100 WBC (Bld) [Ratio] 0 % 0-5 [facility] MCHC Auto (RBC) [Mass/Vol]Or dered By: Dr. Dyer on 05-04-2023 MCHC (RBC) [Mass/Vol] 33.1 g/dL 32-36 [facility] No Panel InformationOrdered By: Dr. Dyer on 05-04-2023 Estimated Creatinine Clearance Calc 83.15 ml/min [facility] Estimated GFR (MDRD) Amer 110 mL/min >60 [facility] Comment on above: GFR Calc Estimated GFR (MDRD) Non-Af Amer 91 mL/min >60 [facility] Comment on above: Non- GFR Calc Platelets bldOrdered By: Dr. Dyer on 05-04-2023 Platelets (Bld) [#/Vol] 274 10*3/uL 150-450 [facility] Serum or plasma calcium alphonso urement (mass/volume)Ordered By: Dr. Dyer on 05-04-2023 Calcium [Mass/Vol] 8.6 mg/dL 8.5-10.1 [facility] Serum or plasma creatinine m easurement (mass/volume)Ordered By: Dr. Dyer on 05-04-2023 Creatinine [Mass/Vol] 0.73 mg/dL 0.55-1.02 [facility] Comment on above: The validity of the calculated GFR & GFRAA in patients over 70 years has not been determined. Clinical correlation is essential. Serum or plasma urea nitroge n measurement (mass/volume)Ordered By: Dr. Dyer on 05-04-2023 Urea nitrogen [Mass/Vol] 14 mg/dL -18 [facility] Thin prep Papanicolaou smear with manual screeningOrdered By: Dr. Dyer on 05-04-2023 Thin prep Papanicolaou smear with manual screening 6 5-15 [facility] Laboratory - Microbiology an d Antimicrobial susceptibilityOrdered By: Dr. Jacobs on 04-15-2023 Bacteria identified Cx Nom (Bld) No growth in 5 days. [facility] Absolute lymphocyte countOrd ered By: Dr. Kiran on 04-11-2023 Lymphocytes Auto (Unsp spec) [#/Vol] 2.75 10*3/uL 0.83-4.51 [facility] Basophil percentageOrdered B y: Dr. Kiran on 04-11-2023 Basophils/100 WBC (Bld) 0.3 % 0-1 [facility] Chloride [Moles/Vol] 105 mmol/L 98-107 [facility] Eosinophils/100 WBC (Bld) 0.7 % 0-5 [facility] Glucose [Mass/Vol] 143 mg/dL 74-106 [facility] Comment on above: Fasting Glucose resu lt greater than or equal to 126 mg/dL suggests DIABETES MELLITUS per A.D.A. criteria. Neutrophils (Bld) [#/Vol] 7.8 10*3/uL 2.0-7.7 [facility] Neutrophils/100 WBC (Bld) 67.1 % 47-70 [facility] Potassium [Moles/Vol] 4.1 mmol/L 3.5-5.1 [facility] Sodium [Moles/Vol] 137 mmol/L 136-145 [facility] WBC (Bld) [#/Vol] 11.6 10*3/uL 4.4-11.0 [facility] Basophil percentageOrdered B y: Dr. Johnson on 04-11-2023 Lactate [Moles/Vol] 0.6 mmol/L 0.4-2.0 [facility] Blood erythrocytes count (nu mber/volume)Ordered By: Dr. Kiran on 04-11-2023 RBC (Bld) [#/Vol] 3.87 10*6/uL 4.2-5.4 [facility] Blood hemoglobin measurement (mass/volume)Ordered By: Dr. Kiran on 04-11-2023 Hemoglobin (Bld) [Mass/Vol] 12.6 g/dL 12.0-15.0 [facility] Blood lymphocytes/100 leukoc ytesOrdered By: Dr. Kiran on 04-11-2023 Lymphocytes/100 WBC (Bld) 23.8 % 19-41 [facility] Blood monocytes/100 leukocyt esOrdered By: Dr. Kiran on 04-11-2023 Monocytes/100 WBC (Bld) 7.8 % 0-10 [facility] Blood platelet mean volumeOr dered By: Dr. Kiran on 04-11-2023 Platelet mean volume (Bld) [Entitic vol] 9.7 fL 6.2-12.0 [facility] Determination of erythrocyte mean corpuscular volume (MCV)Ordered By: Dr. Kiran on 04-11-2023 MCV (RBC) [Entitic vol] 100.5 fL 81-99 [facility] Glucose Glucometer (BldC) [M ass/Vol]Ordered By: Dr. Johnson on 04-11-2023 Glucose [Mass/Vol] 95 mg/dL 74-106 [facility] Comment on above: MANAGEMENT OF PATIEN T CARE PER NURSING PROTOCOL Hematocrit Auto (Bld) [Volum e fraction]Ordered By: Dr. Kiran on 04-11-2023 Hematocrit (Bld) [Volume fraction] 38.9 % 37-47 [facility] - Chemistry and C hemistry - challengeOrdered By: Dr. Kiran on 04-11-2023 CO2 [Moles/Vol] 24.0 mmol/L 21.0-32.0 [facility] Urea nitrogen/Creatinine [Mass ratio] 23.2 mg/mg 10-20 [facility] - Hematology and Cell countsOrdered By: Dr. Kiran on 04-11-2023 Erythrocyte distribution width (RBC) [Entitic vol] 47.8 fL 35.1-43.9 [facility] Erythrocyte distribution width (RBC) [Ratio] 13.1 % 11.6-14.6 [facility] Immature granulocytes/100 WBC (Bld) 0.300 % 0.0-0.9 [facility] Comment on above: IG% - Immature Granu locytes (promyelocytes, myelocytes and metamyelocytes) > 1% indicates that a LEFT SHIFT is Present. MCH (RBC) [Entitic mass] 32.6 pg 27.0-32.0 [facility] Nucleated RBC/100 WBC (Bld) [Ratio] 0 % 0-5 [facility] Auto (RBC) [Mass/Vol]Or dered By: Dr. Kiran on 04-11-2023 MCHC (RBC) [Mass/Vol] 32.4 g/dL 32-36 [facility] No Panel InformationOrdered By: Dr. Kiran on 04-11-2023 Estimated Creatinine Clearance Calc 74.03 ml/min [facility] Estimated GFR (MDRD) Amer 97 mL/min >60 [facility] Comment on above: GFR Calc Estimated GFR (MDRD) Non-Af Amer 80 mL/min >60 [facility] Comment on above: Non- GFR Calc Platelets bldOrdered By: Dr. Kiran on 04-11-2023 Platelets (Bld) [#/Vol] 246 10*3/uL 150-450 [facility] Serum or plasma calcium alphonso urement (mass/volume)Ordered By: Dr. Kiran on 04-11-2023 Calcium [Mass/Vol] 8.8 mg/dL 8.5-10.1 [facility] Serum or plasma creatinine m easurement (mass/volume)Ordered By: Dr. Kiran on 04-11-2023 Creatinine [Mass/Vol] 0.82 mg/dL 0.55-1.02 [facility] Comment on above: The validity of the calculated GFR & GFRAA in patients over 70 years has not been determined. Clinical correlation is essential. Serum or plasma urea nitroge n measurement (mass/volume)Ordered By: Dr. Kiran on 04-11-2023 Urea nitrogen [Mass/Vol] 19 mg/dL 7-18 [facility] Thin prep Papanicolaou smear with manual screeningOrdered By: Dr. Kiran on 04-11-2023 Thin prep Papanicolaou smear with manual screening 8 5-15 [facility] Basophil percentageOrdered B y: Dr. Jacobs on 04-10-2023 Chloride [Moles/Vol] 110 mmol/L 98-107 [facility] Glucose [Mass/Vol] 160 mg/dL 74-106 [facility] Comment on above: Fasting Glucose resu lt greater than or equal to 126 mg/dL suggests DIABETES MELLITUS per A.D.A. criteria. Lactate [Moles/Vol] 4.2 mmol/L 0.4-2.0 [facility] Comment on above: Critical Result(s) C alled at: 02:41:04 04/10/2023 by: Campos [employer]. Results read back by same. Potassium [Moles/Vol] 4.8 mmol/L 3.5-5.1 [facility] Sodium [Moles/Vol] 140 mmol/L 136-145 [facility] Basophil percentage 0 SEEN /hpf 0-5 [facility] Bilirubin Test strip Ql (U)O rdered By: Dr. Jacobs on 04-10-2023 Bilirubin Ql (U) Negative Negative [facility] HCO3 (BldA) [Moles/Vol]Order ed By: Dr. Jacobs on 04-10-2023 HCO3 (Bld) [Moles/Vol] 20 mmol/L 22-26 [facility] Ketones Test strip Ql (U)Ord ered By: Dr. Jacobs on 04-10-2023 Ketones Ql (U) Negative Negative [facility] - Chemistry and C hemistry - challengeOrdered By: Dr. Jacobs on 04-10-2023 CO2 [Moles/Vol] 19.0 mmol/L 21.0-32.0 [facility] Urea nitrogen/Creatinine [Mass ratio] 15.8 mg/mg 10-20 [facility] CO2 [Moles/Vol] 21 mmol/L 23-33 [facility] - Microbiology an d Antimicrobial susceptibilityOrdered By: David Jacobs on 04-10-2023 Bacteria identified Cx Nom (Bld) No growth in 5 days. [facility] Mucus LM Ql (Urine sed)Order ed By: Dr. Jacobs on 04-10-2023 Mucus Ql (Urine sed) 0 SEEN /hpf [facility] Nitrite Test strip Ql (U)Ord ered By: Dr. Jacobs on 04-10-2023 Nitrite Ql (U) Negative Negative [facility] No Panel InformationOrdered By: Dr. Jacobs on 04-10-2023 Estimated Creatinine Clearance Calc 60.10 ml/min [facility] Estimated GFR (MDRD) Amer 76 mL/min >60 [facility] Comment on above: GFR Calc Estimated GFR (MDRD) Non-Af Amer 63 mL/min >60 [facility] Comment on above: Non- GFR Calc Troponin I High Sensitivity < 3 pg/mL 3.0-54.0 [facility] Comment on above: Please Note: [place] Units and Gender Specific Reference Ranges. For more information see Policy Stat Procedure [place] High Sensitivity Troponin (TNIH) and attachments. Bed Mix Venous Bld PCO2 at Pat Temp 40.5 mmHg 41-51 [facility] Blood Gas Specimen Type GELACIO [facility] Oxygen Delivery Device Room Air [facility] Venous Blood Base Excess -7 mmol/L -1.0-3.5 [facility] No Panel InformationOrdered By: Dr. Kiran on 04-10-2023 Troponin I High Sensitivity < 3 pg/mL 3.0-54.0 [facility] Comment on above: Please Note: [place] Units and Gender Specific Reference Ranges. For more information see Policy Stat Procedure [place] High Sensitivity Troponin (TNIH) and attachments. PO2 venousOrdered By: Dr. Jose wood on 04-10-2023 Oxygen (BldV) [Partial pressure] 54 mm[Hg] 25-40 [facility] Protein Test strip Ql (U)Ord ered By: Dr. Jacobs on 04-10-2023 Protein Ql (U) Negative Negative [facility] Serum or plasma acetone alphonso urement (mass/volume)Ordered By: Dr. Jacobs on 04-10-2023 Acetone [Mass/Vol] Negative NEG [facility] Serum or plasma calcium alphonso urement (mass/volume)Ordered By: Dr. Jacobs on 04-10-2023 Calcium [Mass/Vol] 7.3 mg/dL 8.5-10.1 [facility] Serum or plasma creatinine m easurement (mass/volume)Ordered By: Dr. Jacobs on 04-10-2023 Creatinine [Mass/Vol] 1.01 mg/dL 0.55-1.02 [facility] Comment on above: The validity of the calculated GFR & GFRAA in patients over 70 years has not been determined. Clinical correlation is essential. Serum or plasma urea nitroge n measurement (mass/volume)Ordered By: Dr. Jacobs on 04-10-2023 Urea nitrogen [Mass/Vol] 16 mg/dL 7-18 [facility] Squamous epithelial cells de tection in urine sediment by light microscopyOrdered By: Dr. Jacobs on 04-10-2023 Epithelial cells.squamous LM Ql (Urine sed) 0 SEEN /hpf 5-10 [facility] Thin prep Papanicolaou smear with manual screeningOrdered By: Dr. Jacobs on 04-10-2023 Thin prep Papanicolaou smear with manual screening 11 5-15 [facility] Urine blood detectionOrdered By: Dr. Jacobs on 04-10-2023 RBC Ql (U) Negative Negative [facility] RBC Ql (U) 0 SEEN /hpf 0-5 [facility] Urine clarityOrdered By: Dr. Jacobs on 04-10-2023 Clarity (U) Clear Clear [facility] Urine color determinationOrd ered By: Dr. Jacobs on 04-10-2023 Color (U) Yellow Yellow [facility] Urine glucose detectionOrder ed By: Dr. Jacobs on 04-10-2023 Glucose Ql (U) 1000 mg/dl Normal [facility] Urine leukocyte esterase det ection by dipstickOrdered By: Dr. Jacobs on 04-10-2023 Leukocyte esterase Test strip Ql (U) Negative Negative [facility] Urine pHOrdered By: Dr. Caren garza on 04-10-2023 pH (U) 6.5 [pH] 5.0 - 8.0 [facility] Urine sediment bacteria coun t by microscopy (number/high power field)Ordered By: Dr. Jacobs on 04-10-2023 Bacteria LM.HPF (Urine sed) [#/Area] 0 /[HPF] None Seen [facility] Urine specific gravity measu rementOrdered By: Dr. Jacobs on 04-10-2023 Specific gravity (U) [Rel density] 1.010 1.002-1.030 [facility] Urobilinogen Auto test strip Ql (U)Ordered By: Dr. Jacobs on 04-10-2023 Urobilinogen Ql (U) Normal mg/dl Normal [facility] Vital signsOrdered By: Dr. Del mackay on 04-10-2023 Oxygen saturation in Blood 84 % 50-70 [facility] pH measurementOrdered By: Dr Jael Jacobs on 04-10-2023 pH (Unsp spec) 7.29 [pH] 7.32-7.42 [facility] Absolute lymphocyte countOrd ered By: Dr. Jacobs on 04-09-2023 Lymphocytes Auto (Unsp spec) [#/Vol] 0.91 10*3/uL 0.83-4.51 [facility] Basophil percentageOrdered B y: Dr. Jacobs on 04-09-2023 Basophils/100 WBC (Bld) 0.2 % 0-1 [facility] Eosinophils/100 WBC (Bld) 0.4 % 0-5 [facility] Neutrophils (Bld) [#/Vol] 6.8 10*3/uL 2.0-7.7 [facility] Neutrophils/100 WBC (Bld) 85.1 % 47-70 [facility] WBC (Bld) [#/Vol] 8.0 10*3/uL 4.4-11.0 [facility] Blood erythrocytes count (nu mber/volume)Ordered By: Dr. Jacobs on 04-09-2023 RBC (Bld) [#/Vol] 3.87 10*6/uL 4.2-5.4 [facility] Blood hemoglobin measurement (mass/volume)Ordered By: Dr. Jacobs on 04-09-2023 Hemoglobin (Bld) [Mass/Vol] 12.5 g/dL 12.0-15.0 [facility] Blood lymphocytes/100 leukoc ytesOrdered By: Dr. Jacobs on 04-09-2023 Lymphocytes/100 WBC (Bld) 11.3 % 19-41 [facility] Blood monocytes/100 leukocyt esOrdered By: Dr. Jacobs on 04-09-2023 Monocytes/100 WBC (Bld) 1.6 % 0-10 [facility] Blood platelet mean volumeOr dered By: Dr. Jacobs on 04-09-2023 Platelet mean volume (Bld) [Entitic vol] 10.0 fL 6.2-12.0 [facility] Determination of erythrocyte mean corpuscular volume (MCV)Ordered By: Dr. Jacobs on 04-09-2023 MCV (RBC) [Entitic vol] 99.5 fL 81-99 [facility] Hematocrit Auto (Bld) [Volum e fraction]Ordered By: Dr. Jacobs on 04-09-2023 Hematocrit (Bld) [Volume fraction] 38.5 % 37-47 [facility] Laboratory - Hematology and Cell countsOrdered By: Dr. Jacobs on 04-09-2023 Erythrocyte distribution width (RBC) [Entitic vol] 47.4 fL 35.1-43.9 [facility] Erythrocyte distribution width (RBC) [Ratio] 13.0 % 11.6-14.6 [facility] Immature granulocytes/100 WBC (Bld) 1.400 % 0.0-0.9 [facility] Comment on above: IG% - Immature Granu locytes (promyelocytes, myelocytes and metamyelocytes) > 1% indicates that a LEFT SHIFT is Present. MCH (RBC) [Entitic mass] 32.3 pg 27.0-32.0 [facility] Nucleated RBC/100 WBC (Bld) [Ratio] 0 % 0-5 [facility] MCHC Auto (RBC) [Mass/Vol]Or dered By: Dr. Jacobs on 04-09-2023 MCHC (RBC) [Mass/Vol] 32.5 g/dL 32-36 [facility] No Panel InformationOrdered By: Dr. Jacobs on 04-09-2023 D-Dimer Quantitative (PE/DVT) < 0.27 FEU/ug/m 0.27-0.49 [facility] Comment on above: NORMAL D-Dimer level (<0.50) indicates no DVT or PE. Platelets bldOrdered By: Dr. Jacobs on 04-09-2023 Platelets (Bld) [#/Vol] 298 10*3/uL 150-450 [facility] Absolute lymphocyte countOrd ered By: Dr. Gaviria on 03-22-2023 Lymphocytes Auto (Unsp spec) [#/Vol] 2.49 10*3/uL 0.83-4.51 [facility] Amorphous sediment detection in urine sediment by light microscopyOrdered By: Dr. Gaviria on 03-22-2023 Amorphous sediment LM Ql (Urine sed) 1+ URATE [facility] Basophil percentageOrdered B y: Dr. Gaviria on 03-22-2023 Basophil percentage 5-10 SEEN /hpf 0-5 [facility] Basophils/100 WBC (Bld) 0.5 % 0-1 [facility] Bilirubin [Mass/Vol] 0.30 mg/dL 0.20-1.00 [facility] Comment on above: For patients on eltr ombopag therapy, use of Dimension [place] TBIL is not recommended. Chloride [Moles/Vol] 105 mmol/L 98-107 [facility] Eosinophils/100 WBC (Bld) 2.0 % 0-5 [facility] Glucose [Mass/Vol] 146 mg/dL 74-106 [facility] Comment on above: Fasting Glucose resu lt greater than or equal to 126 mg/dL suggests DIABETES MELLITUS per A.D.A. criteria. Lactate [Moles/Vol] 1.4 mmol/L 0.4-2.0 [facility] Neutrophils (Bld) [#/Vol] 7.1 10*3/uL 2.0-7.7 [facility] Neutrophils/100 WBC (Bld) 64.4 % 47-70 [facility] Potassium [Moles/Vol] 4.4 mmol/L 3.5-5.1 [facility] Protein [Mass/Vol] 7.7 g/dL 6.4-8.2 [facility] Sodium [Moles/Vol] 133 mmol/L 136-145 [facility] WBC (Bld) [#/Vol] 11.0 10*3/uL 4.4-11.0 [facility] Bilirubin Test strip Ql (U)O rdered By: Dr. Gaviria on 03-22-2023 Bilirubin Ql (U) Negative Negative [facility] Blood erythrocytes count (nu mber/volume)Ordered By: Dr. Gaviria on 03-22-2023 RBC (Bld) [#/Vol] 4.25 10*6/uL 4.2-5.4 [facility] Blood hemoglobin measurement (mass/volume)Ordered By: Dr. Gaviria on 03-22-2023 Hemoglobin (Bld) [Mass/Vol] 13.6 g/dL 12.0-15.0 [facility] Blood lymphocytes/100 leukoc ytesOrdered By: Dr. Gaviria on 03-22-2023 Lymphocytes/100 WBC (Bld) 22.7 % 19-41 [facility] Blood monocytes/100 leukocyt esOrdered By: Dr. Gaviria on 03-22-2023 Monocytes/100 WBC (Bld) 9.9 % 0-10 [facility] Blood platelet mean volumeOr dered By: Dr. Gaviria on 03-22-2023 Platelet mean volume (Bld) [Entitic vol] 9.7 fL 6.2-12.0 [facility] Determination of erythrocyte mean corpuscular volume (MCV)Ordered By: Dr. Gaviria on 03-22-2023 MCV (RBC) [Entitic vol] 97.6 fL 81-99 [facility] Hematocrit Auto (Bld) [Volum e fraction]Ordered By: Dr. Gaviria on 03-22-2023 Hematocrit (Bld) [Volume fraction] 41.5 % 37-47 [facility] Ketones Test strip Ql (U)Ord ered By: Dr. Gaviria on 03-22-2023 Ketones Ql (U) Negative Negative [facility] Laboratory - Chemistry and C hemistry - challengeOrdered By: Dr. Gaviria on 03-22-2023 ALP [Catalytic activity/Vol] 71 U/L 45-117 [facility] ALT [Catalytic activity/Vol] 33 U/L 13-56 [facility] CO2 [Moles/Vol] 24.0 mmol/L 21.0-32.0 [facility] Globulin (S) [Mass/Vol] 3.7 g/dL 2.2-4.2 [facility] Urea nitrogen/Creatinine [Mass ratio] 10.8 mg/mg 10-20 [facility] - Hematology and Cell countsOrdered By: Dr. Gaviria on 03-22-2023 Erythrocyte distribution width (RBC) [Entitic vol] 46.9 fL 35.1-43.9 [facility] Erythrocyte distribution width (RBC) [Ratio] 13.1 % 11.6-14.6 [facility] Immature granulocytes/100 WBC (Bld) 0.500 % 0.0-0.9 [facility] Comment on above: IG% - Immature Granu locytes (promyelocytes, myelocytes and metamyelocytes) > 1% indicates that a LEFT SHIFT is Present. MCH (RBC) [Entitic mass] 32.0 pg 27.0-32.0 [facility] Nucleated RBC/100 WBC (Bld) [Ratio] 0 % 0-5 [facility] MCHC Auto (RBC) [Mass/Vol]Or dered By: Dr. Gaviria on 03-22-2023 MCHC (RBC) [Mass/Vol] 32.8 g/dL 32-36 [facility] Mucus LM Ql (Urine sed)Order ed By: Dr. Gaviria on 03-22-2023 Mucus Ql (Urine sed) 0 SEEN /hpf [facility] Nitrite Test strip Ql (U)Ord ered By: Dr. Gaviria on 03-22-2023 Nitrite Ql (U) Negative Negative [facility] No Panel InformationOrdered By: Dr. Gaviria on 03-22-2023 Estimated Creatinine Clearance Calc 36.74 ml/min [facility] Estimated GFR (MDRD) Amer 43 mL/min >60 [facility] Comment on above: GFR Calc Estimated GFR (MDRD) Non-Af Amer 35 mL/min >60 [facility] Comment on above: Non- GFR Calc Platelets bldOrdered By: Dr. Gaviria on 03-22-2023 Platelets (Bld) [#/Vol] 316 10*3/uL 150-450 [facility] Protein Test strip Ql (U)Ord ered By: Dr. Gaviria on 03-22-2023 Protein Ql (U) Negative Negative [facility] Serum or plasma albumin alphonso urement (mass/volume)Ordered By: Dr. Gaviria on 03-22-2023 Albumin [Mass/Vol] 4.0 g/dL 3.2-5.0 [facility] Serum or plasma albumin/glob ulin mass ratioOrdered By: Dr. Gaviria on 03-22-2023 Albumin/Globulin [Mass ratio] 1.1 {ratio} 0.9-2.4 [facility] Serum or plasma calcium alphonso urement (mass/volume)Ordered By: Dr. Gaviria on 03-22-2023 Calcium [Mass/Vol] 8.9 mg/dL 8.5-10.1 [facility] Serum or plasma creatinine m easurement (mass/volume)Ordered By: Dr. Gaviria on 03-22-2023 Creatinine [Mass/Vol] 1.67 mg/dL 0.55-1.02 [facility] Comment on above: The validity of the calculated GFR & GFRAA in patients over 70 years has not been determined. Clinical correlation is essential. Serum or plasma urea nitroge n measurement (mass/volume)Ordered By: Dr. Gaviria on 03-22-2023 Urea nitrogen [Mass/Vol] 18 mg/dL 7-18 [facility] Squamous epithelial cells de tection in urine sediment by light microscopyOrdered By: Dr. Gaviria on 03-22-2023 Epithelial cells.squamous LM Ql (Urine sed) 0-5 SEEN /hpf 5-10 [facility] Thin prep Papanicolaou smear with manual screeningOrdered By: Dr. Gaviria on 03-22-2023 Thin prep Papanicolaou smear with manual screening 20 U/L 15-37 [facility] Thin prep Papanicolaou smear with manual screening 4 5-15 [facility] Urine blood detectionOrdered By: Dr. Gaviria on 03-22-2023 RBC Ql (U) Negative Negative [facility] RBC Ql (U) 0 SEEN /hpf 0-5 [facility] Urine clarityOrdered By: Dr. Gaviria on 03-22-2023 Clarity (U) Sl. Cloudy Clear [facility] Urine color determinationOrd ered By: Dr. Gaviria on 03-22-2023 Color (U) Yellow Yellow [facility] Urine glucose detectionOrder ed By: Dr. Gaviria on 03-22-2023 Glucose Ql (U) 1000 mg/dl Normal [facility] Urine leukocyte esterase det ection by dipstickOrdered By: Dr. Gaviria on 03-22-2023 Leukocyte esterase Test strip Ql (U) 100 /ul Negative [facility] Urine pHOrdered By: Dr. Shae ruelas on 03-22-2023 pH (U) 6.5 [pH] 5.0 - 8.0 [facility] Urine sediment bacteria coun t by microscopy (number/high power field)Ordered By: Dr. Gaviria on 03-22-2023 Bacteria LM.HPF (Urine sed) [#/Area] 0 /[HPF] None Seen [facility] Urine specific gravity measu rementOrdered By: Dr. Gaviria on 03-22-2023 Specific gravity (U) [Rel density] 1.005 1.002-1.030 [facility] Urobilinogen Auto test strip Ql (U)Ordered By: Dr. Gaviria on 03-22-2023 Urobilinogen Ql (U) Normal mg/dl Normal [facility] Laboratory - Microbiology an d Antimicrobial susceptibilityon 02-12-2023 SARS-CoV-2 (COVID-19) RNA ALLEY+probe Ql (Unsp spec) Not detected [facility] No Panel Informationon 02-12 Influenza Types A,B Rapid (Clinic) Not detected [facility] Absolute lymphocyte countOrd ered By: Dr. Jacobs on 01-21-2023 Lymphocytes Auto (Unsp spec) [#/Vol] 2.33 10*3/uL 0.83-4.51 [facility] Basophil percentageOrdered B y: Dr. Jacobs on 01-21-2023 Basophils/100 WBC (Bld) 0.5 % 0-1 [facility] Chloride [Moles/Vol] 103 mmol/L 98-107 [facility] Eosinophils/100 WBC (Bld) 2.6 % 0-5 [facility] Glucose [Mass/Vol] 262 mg/dL 74-106 [facility] Comment on above: Glucose result great er than or equal to 200 mg/dLsuggests DIABETES MELLITUS per A.D.A. criteria. Neutrophils (Bld) [#/Vol] 4.7 10*3/uL 2.0-7.7 [facility] Neutrophils/100 WBC (Bld) 59.7 % 47-70 [facility] Potassium [Moles/Vol] 3.6 mmol/L 3.5-5.1 [facility] Sodium [Moles/Vol] 138 mmol/L 136-145 [facility] WBC (Bld) [#/Vol] 7.9 10*3/uL 4.4-11.0 [facility] Blood erythrocytes count (nu mber/volume)Ordered By: Dr. Jacobs on 01-21-2023 RBC (Bld) [#/Vol] 4.32 10*6/uL 4.2-5.4 [facility] Blood hemoglobin measurement (mass/volume)Ordered By: Dr. Jacobs on 01-21-2023 Hemoglobin (Bld) [Mass/Vol] 13.8 g/dL 12.0-15.0 [facility] Blood lymphocytes/100 leukoc ytesOrdered By: Dr. Jacobs on 01-21-2023 Lymphocytes/100 WBC (Bld) 29.3 % 19-41 [facility] Blood monocytes/100 leukocyt esOrdered By: Dr. Jacobs on 01-21-2023 Monocytes/100 WBC (Bld) 7.6 % 0-10 [facility] Blood platelet mean volumeOr dered By: Dr. Jacobs on 01-21-2023 Platelet mean volume (Bld) [Entitic vol] 9.8 fL 6.2-12.0 [facility] Determination of erythrocyte mean corpuscular volume (MCV)Ordered By: Dr. Jacobs on 01-21-2023 MCV (RBC) [Entitic vol] 95.8 fL 81-99 [facility] Hematocrit Auto (Bld) [Volum e fraction]Ordered By: Dr. Jacobs on 01-21-2023 Hematocrit (Bld) [Volume fraction] 41.4 % 37-47 [facility] - Chemistry and C hemistry - challengeOrdered By: Dr. Jacobs on 01-21-2023 CO2 [Moles/Vol] 27.0 mmol/L 21.0-32.0 [facility] Urea nitrogen/Creatinine [Mass ratio] 11.8 mg/mg 10-20 [facility] - Hematology and Cell countsOrdered By: Dr. Jacobs on 01-21-2023 Erythrocyte distribution width (RBC) [Entitic vol] 44.4 fL 35.1-43.9 [facility] Erythrocyte distribution width (RBC) [Ratio] 12.7 % 11.6-14.6 [facility] Immature granulocytes/100 WBC (Bld) 0.300 % 0.0-0.9 [facility] Comment on above: IG% - Immature Granu locytes (promyelocytes, myelocytes and metamyelocytes) > 1% indicates that a LEFT SHIFT is Present. MCH (RBC) [Entitic mass] 31.9 pg 27.0-32.0 [facility] Nucleated RBC/100 WBC (Bld) [Ratio] 0 % 0-5 [facility] MCHC Auto (RBC) [Mass/Vol]Or dered By: Dr. Jacobs on 01-21-2023 MCHC (RBC) [Mass/Vol] 33.3 g/dL 32-36 [facility] No Panel InformationOrdered By: Dr. Jacobs on 01-21-2023 Troponin I High Sensitivity < 3 pg/mL 3.0-54.0 [facility] Comment on above: Please Note: [place] t Units and Gender Specific Reference Ranges. For more information see Policy Stat Procedure [place] High Sensitivity Troponin (TNIH) and attachments. D-Dimer Quantitative (PE/DVT) < 0.27 FEU/ug/m 0.27-0.49 [facility] Comment on above: NORMAL D-Dimer level (<0.50) indicates no DVT or PE. Estimated Creatinine Clearance Calc 65.97 ml/min [facility] Estimated GFR (MDRD) Amer 83 mL/min >60 [facility] Comment on above: GFR Calc Estimated GFR (MDRD) Non-Af Amer 69 mL/min >60 [facility] Comment on above: Non- GFR Calc Platelets bldOrdered By: Dr. Jacobs on 01-21-2023 Platelets (Bld) [#/Vol] 314 10*3/uL 150-450 [facility] Serum or plasma calcium alphonso urement (mass/volume)Ordered By: Dr. Jacobs on 01-21-2023 Calcium [Mass/Vol] 8.9 mg/dL 8.5-10.1 [facility] Serum or plasma creatinine m easurement (mass/volume)Ordered By: Dr. Jacobs on 01-21-2023 Creatinine [Mass/Vol] 0.93 mg/dL 0.55-1.02 [facility] Comment on above: The validity of the calculated GFR & GFRAA in patients over 70 years has not been determined. Clinical correlation is essential. Serum or plasma urea nitroge n measurement (mass/volume)Ordered By: Dr. Jacobs on 01-21-2023 Urea nitrogen [Mass/Vol] 11 mg/dL 7-18 [facility] Thin prep Papanicolaou smear with manual screeningOrdered By: Dr. Jacobs on 01-21-2023 Thin prep Papanicolaou smear with manual screening 8 5-15 [facility] Absolute lymphocyte countOrd ered By: Dr. Kay on 11-19-2022 Lymphocytes Auto (Unsp spec) [#/Vol] 2.69 10*3/uL 0.83-4.51 [facility] Basophil percentageOrdered B y: Dr. Kay on 11-19-2022 Basophils/100 WBC (Bld) 0.4 % 0-1 [facility] Chloride [Moles/Vol] 104 mmol/L 98-107 [facility] Eosinophils/100 WBC (Bld) 2.4 % 0-5 [facility] Glucose [Mass/Vol] 194 mg/dL 74-106 [facility] Comment on above: Fasting Glucose resu lt greater than or equal to 126 mg/dL suggests DIABETES MELLITUS per A.D.A. criteria. Neutrophils (Bld) [#/Vol] 1.7 10*3/uL 2.0-7.7 [facility] Neutrophils/100 WBC (Bld) 33.7 % 47-70 [facility] Potassium [Moles/Vol] 3.4 mmol/L 3.5-5.1 [facility] Sodium [Moles/Vol] 138 mmol/L 136-145 [facility] WBC (Bld) [#/Vol] 5.1 10*3/uL 4.4-11.0 [facility] Basophil percentageOrdered B y: Dr. Piña on 11-19-2022 Cholesterol [Mass/Vol] 144 mg/dL <200 [facility] Comment on above: <200 mg/dL Desirable 200-240 mg/dL Borderline >240 mg/dL High Risk Triglyceride [Mass/Vol] 227 mg/dL <199 [facility] Comment on above: The drugs N-Acetylcy steine and Metamizole may falsely depress this assay.Serum Triglycerides Reference Interval Normal <150 mg/dL Borderline high 150 - 199 mg/dL High 200 - 499 mg/dL Very High > or = 500 mg/dL Beta hCG serum qualOrdered B y: Dr. Piña on 11-19-2022 Beta HCG ( test) Ql Negative [facility] Blood erythrocytes count (nu mber/volume)Ordered By: Dr. Kay on 11-19-2022 RBC (Bld) [#/Vol] 3.74 10*6/uL 4.2-5.4 [facility] Blood hemoglobin measurement (mass/volume)Ordered By: Dr. Kay on 11-19-2022 Hemoglobin (Bld) [Mass/Vol] 12.0 g/dL 12.0-15.0 [facility] Blood lymphocytes/100 leukoc ytesOrdered By: Dr. Kay on 11-19-2022 Lymphocytes/100 WBC (Bld) 52.7 % 19-41 [facility] Blood monocytes/100 leukocyt esOrdered By: Dr. Kay on 11-19-2022 Monocytes/100 WBC (Bld) 10.6 % 0-10 [facility] Blood platelet mean volumeOr dered By: Dr. Kay on 11-19-2022 Platelet mean volume (Bld) [Entitic vol] 9.5 fL 6.2-12.0 [facility] Determination of erythrocyte mean corpuscular volume (MCV)Ordered By: Dr. Kay on 11-19-2022 MCV (RBC) [Entitic vol] 92.2 fL 81-99 [facility] Glucose Glucometer (BldC) [M ass/Vol]Ordered By: Dr. Kay on 11-19-2022 Glucose [Mass/Vol] 295 mg/dL 74-106 [facility] Comment on above: MANAGEMENT OF PATIEN T CARE PER NURSING PROTOCOL Hematocrit Auto (Bld) [Volum e fraction]Ordered By: Dr. Kay on 11-19-2022 Hematocrit (Bld) [Volume fraction] 34.5 % 37-47 [facility] - Chemistry and C hemistry - challengeOrdered By: Dr. Kay on 11-19-2022 CO2 [Moles/Vol] 28.0 mmol/L 21.0-32.0 [facility] Urea nitrogen/Creatinine [Mass ratio] 14.3 mg/mg 10-20 [facility] Laboratory - CoagulationOrde red By: Dr. Tavares on 11-19-2022 aPTT Coag (Bld) [Time] 63.5 s 24.1-36.2 [facility] Laboratory - Hematology and Cell countsOrdered By: Dr. Kay on 11-19-2022 Erythrocyte distribution width (RBC) [Entitic vol] 41.3 fL 35.1-43.9 [facility] Erythrocyte distribution width (RBC) [Ratio] 12.2 % 11.6-14.6 [facility] Immature granulocytes/100 WBC (Bld) 0.200 % 0.0-0.9 [facility] Comment on above: IG% - Immature Granu locytes (promyelocytes, myelocytes and metamyelocytes) > 1% indicates that a LEFT SHIFT is Present. MCH (RBC) [Entitic mass] 32.1 pg 27.0-32.0 [facility] Nucleated RBC/100 WBC (Bld) [Ratio] 0 % 0-5 [facility] MCHC Auto (RBC) [Mass/Vol]Or dered By: Dr. Kay on 11-19-2022 MCHC (RBC) [Mass/Vol] 34.8 g/dL 32-36 [facility] No Panel InformationOrdered By: Dr. Kay on 11-19-2022 Estimated Creatinine Clearance Calc 97.38 ml/min [facility] Estimated GFR (MDRD) Amer 131 mL/min >60 [facility] Comment on above: GFR Calc Estimated GFR (MDRD) Non-Af Amer 108 mL/min >60 [facility] Comment on above: Non- GFR Calc No Panel InformationOrdered By: Dr. Piña on 11-19-2022 Troponin I High Sensitivity 307 pg/mL 3.0-54.0 [facility] Comment on above: Critical Result(s) C alled at: 04:53:08 11/19/2022 by: Kannan BRAUN RN ([facility]) Results read back by same. Please Note: New Test Units and Gender Specific Reference Ranges. For more information see Policy Stat Procedure [place] High Sensitivity Troponin (TNIH) and attachments. Platelets bldOrdered By: Dr. Kay on 11-19-2022 Platelets (Bld) [#/Vol] 194 10*3/uL 150-450 [facility] Serum or plasma calcium alphonso urement (mass/volume)Ordered By: Dr. Kay on 11-19-2022 Calcium [Mass/Vol] 7.7 mg/dL 8.5-10.1 [facility] Serum or plasma cholesterol in HDL measurement (mass/volume)Ordered By: Dr. Piña on 11-19-2022 Cholesterol in HDL [Mass/Vol] 42 mg/dL >40 [facility] Comment on above: The drugs N-Acetylcy steine and Metamizole may falsely depress this assay. Reference Range HDL <40 mg/dL Low HDL Cholesterol HDL >or= 60 mg/dL High HDL Cholesterol Serum or plasma cholesterol in VLDL measurement (mass/volume)Ordered By: Dr. Piña on 11-19-2022 Cholesterol in VLDL [Mass/Vol] 45 mg/dL 5-40 [facility] Serum or plasma creatinine m easurement (mass/volume)Ordered By: Dr. Kay on 11-19-2022 Creatinine [Mass/Vol] 0.63 mg/dL 0.55-1.02 [facility] Comment on above: The validity of the calculated GFR & GFRAA in patients over 70 years has not been determined. Clinical correlation is essential. Serum or plasma low density lipoprotein (LDL) cholesterol measurement (mass/volume)Ordered By: Dr. Piña on 11-19-2022 Cholesterol in LDL [Mass/Vol] 57 mg/dL 0-130 [facility] Serum or plasma urea nitroge n measurement (mass/volume)Ordered By: Dr. Kay on 11-19-2022 Urea nitrogen [Mass/Vol] 9 mg/dL 7-18 [facility] Thin prep Papanicolaou smear with manual screeningOrdered By: Dr. Kay on 11-19-2022 Thin prep Papanicolaou smear with manual screening 6 5-15 [facility] Basophil percentageOrdered B y: Dr. Piña on 11-18-2022 Bilirubin [Mass/Vol] 0.50 mg/dL 0.20-1.00 [facility] Comment on above: For patients on eltr ombopag therapy, use of Dimension [place] TBIL is not recommended. Protein [Mass/Vol] 7.4 g/dL 6.4-8.2 [facility] Direct bilirubinOrdered By: Dr. Piña on 11-18-2022 Bilirubin.direct [Mass/Vol] 0.13 mg/dL 0.00-0.30 [facility] INR in Blood by Coagulation assayOrdered By: Dr. Tavares on 11-18-2022 INR Coag (Bld) [Relative time] 1.0 {INR} [facility] Laboratory - Chemistry and C hemistry - challengeOrdered By: Dr. Piña on 11-18-2022 ALP [Catalytic activity/Vol] 82 U/L 45-117 [facility] ALT [Catalytic activity/Vol] 33 U/L 13-56 [facility] Globulin (S) [Mass/Vol] 4.0 g/dL 2.2-4.2 [facility] Laboratory - CoagulationOrde red By: Dr. Tavares on 11-18-2022 PT Coag (PPP) [Time] 12.9 s 11.7-14.9 [facility] No Panel InformationOrdered By: Dr. Tavares on 11-18-2022 D-Dimer Quantitative (PE/DVT) 0.40 FEU/ug/m 0.27-0.49 [facility] Comment on above: NORMAL D-Dimer level (<0.50) indicates no DVT or PE. Serum or plasma albumin alphonso urement (mass/volume)Ordered By: Dr. Piña on 11-18-2022 Albumin [Mass/Vol] 3.4 g/dL 3.2-5.0 [facility] Thin prep Papanicolaou smear with manual screeningOrdered By: Dr. Piña on 11-18-2022 Thin prep Papanicolaou smear with manual screening 26 U/L 15-37 [facility] Absolute lymphocyte counton 09-05-2022 Lymphocytes Auto (Unsp spec) [#/Vol] 3.03 10*3/uL 0.83-4.51 [facility] Work Phone: Basophil percentageon 2021 Basophils/100 WBC (Bld) 0.5 % 0-1 [facility] Work Phone: Chloride [Moles/Vol] 105 mmol/L 98-107 [facility] Work Phone: Eosinophils/100 WBC (Bld) 3.3 % 0-5 [facility] Work Phone: Glucose [Mass/Vol] 246 mg/dL 74-106 [facility] Work Phone: Comment on above: Glucose result great er than or equal to 200 mg/dLsuggests DIABETES MELLITUS per A.D.A. criteria. Neutrophils (Bld) [#/Vol] 3.8 10*3/uL 2.0-7.7 [facility] Work Phone: [phone] Neutrophils/100 WBC (Bld) 48.3 % 47-70 [facility] Work Phone: [phone] Potassium [Moles/Vol] 3.6 mmol/L 3.5-5.1 [facility] Work Phone: [phone] Sodium [Moles/Vol] 142 mmol/L 136-145 [facility] Work Phone: [phone] WBC (Bld) [#/Vol] 7.8 10*3/uL 4.4-11.0 [facility] Work Phone: [phone] Blood erythrocytes count (nu mber/volume)on 09-05-2022 RBC (Bld) [#/Vol] 4.17 10*6/uL 4.2-5.4 [facility]: Blood hemoglobin measurement (mass/volume)on 09-05-2022 Hemoglobin (Bld) [Mass/Vol] 13.1 g/dL 12.0-15.0 [facility] Work Phone: [phone] Blood lymphocytes/100 leukoc yteson 09-05-2022 Lymphocytes/100 WBC (Bld) 39.0 % 19-41 [facility] Work Phone: [phone] Blood monocytes/100 leukocyt eson 09-05-2022 Monocytes/100 WBC (Bld) 8.5 % 0-10 [facility] Work Phone: Blood platelet mean volumeon 09-05-2022 Platelet mean volume (Bld) [Entitic vol] 9.6 fL 6.2-12.0 [facility] Work Phone: [phone] Determination of erythrocyte mean corpuscular volume (MCV)on 09-05-2022 MCV (RBC) [Entitic vol] 92.1 fL 81-99 [facility] Work Phone: [phone] Hematocrit Auto (Bld) [Volum e fraction]on 09-05-2022 Hematocrit (Bld) [Volume fraction] 38.4 % 37-47 [facility] Work Phone: [phone] Laboratory - Chemistry and C hemistry - challengeon 09-05-2022 CO2 [Moles/Vol] 27.0 mmol/L 21.0-32.0 [facility] Work Phone: [phone] Urea nitrogen/Creatinine [Mass ratio] 16.7 mg/mg 10-20 [facility] Work Phone: [phone] Laboratory - Hematology and Cell countson 09-05-2022 Erythrocyte distribution width (RBC) [Entitic vol] 42.3 fL 35.1-43.9 [facility] Work Phone: [phone] Erythrocyte distribution width (RBC) [Ratio] 12.7 % 11.6-14.6 [facility] Work Phone: [phone] Immature granulocytes/100 WBC (Bld) 0.400 % 0.0-0.9 [facility] Work Phone: [phone] Comment on above: IG% - Immature Granu locytes (promyelocytes, myelocytes and metamyelocytes) > 1% indicates that a LEFT SHIFT is Present. MCH (RBC) [Entitic mass] 31.4 pg 27.0-32.0 [facility] Work Phone: [phone] Nucleated RBC/100 WBC (Bld) [Ratio] 0 % 0-5 [facility] Work Phone: [phone] MCHC Auto (RBC) [Mass/Vol]on 09-05-2022 MCHC (RBC) [Mass/Vol] 34.1 g/dL 32-36 [facility] Work Phone: [phone] Panel Informationon 09-05 Estimated Creatinine Clearance Calc 78.65 ml/min [facility] Work Phone: [phone] Estimated GFR (MDRD) Amer 103 mL/min >60 [facility] Work Phone: Comment on above: GFR Calc Estimated GFR (MDRD) Non-Af Amer 85 mL/min >60 [facility] Work Phone: Comment on above: Non- GFR Calc Ethyl Alcohol Level 237.0 mg/dL [facility] Work Phone: Comment on above: The serum:whole bloo d ethanol ratio is approximately 1.14and varies slightly with hematocrit. Medical Alcohol reference interval and critical value innon-tolerant individuals; 50 - 100 Impairment 100 Intoxication 100 - 250 Severe Poisoning 250 - 400 Deep/possible fatal coma Platelets bldon 09-05-2022 Platelets (Bld) [#/Vol] 318 10*3/uL 150-450 [facility] Work Phone: Serum or plasma calcium alphonso urement (mass/volume)on 09-05-2022 Calcium [Mass/Vol] 8.8 mg/dL 8.5-10.1 [facility] Work Phone: Serum or plasma creatinine m easurement (mass/volume)on 09-05-2022 Creatinine [Mass/Vol] 0.78 mg/dL 0.55-1.02 [facility] Work Phone: Comment on above: The validity of the calculated GFR & GFRAA in patients over 70 years has not been determined. Clinical correlation is essential. Serum or plasma urea nitroge n measurement (mass/volume)on 09-05-2022 Urea nitrogen [Mass/Vol] 13 mg/dL 7-18 [facility] Work Phone: Thin prep Papanicolaou smear with manual screeningon 09-05-2022 Thin prep Papanicolaou smear with manual screening 10 5-15 [facility] Work Phone: XR HIP GENERAL 3V PELV/AP/LA T LEFTon 07-21-2022 [facility] XR Pelvis and Hip - left AP and Lateral frogon 07-21-2022 IMPRESSION: Negative pelvis and left hip. Sericulture Teacher: PAM Transcribe Date/Time: Jul 21 2022 7:27P Dictated by : BETINA MAGANA MD This examination was interpreted and the report reviewed and electronically signed by: BETINA MAGANA MD on Jul 21 2022 7:29PM [facility] DIVISION OF RADIOLOGY * * *Final Report* [...] fracture or dislocation. DIVISION OF RADIOLOGY Provider, [facility] [place] - 07/21/2022 * * *Final Report* * [...] IMPRESSION IMPRESSION: Negative pelvis and left hip. Sericulture Teacher: PAM Transcribe Date/Time: Jul 21 2022 7:27P Dictated by : BETINA MAGANA MD This examination was interpreted and the report reviewed and electronically signed by: BETINA MAGANA MD on Jul 21 2022 7:29PM [facility] Radiology Study observation (narrative) Aric zhang [facility] XR Pelvis and Hip - left AP and Lateral frogOrdered By: Cc Provider on 07-21-2022 [facility] Laboratory - Microbiology an d Antimicrobial susceptibilityon 05-31-2022 SARS-CoV-2 (COVID-19) RNA ALLEY+probe Ql (Unsp spec) Not detected [facility] Work Phone: Absolute lymphocyte counton 02-22-2022 Lymphocytes Auto (Unsp spec) [#/Vol] 2.29 10*3/uL 0.83-4.51 [facility] Work Phone: Basophil percentageon 2021 Basophils/100 WBC (Bld) 0.6 % 0-1 [facility] Work Phone: Chloride [Moles/Vol] 103 mmol/L 98-107 [facility]: Eosinophils/100 WBC (Bld) 4.7 % 0-5 [facility] Work Phone: Glucose [Mass/Vol] 207 mg/dL 74-106 [facility] Work Phone: Comment on above: Glucose result great er than or equal to 200 mg/dLsuggests DIABETES MELLITUS per A.D.A. criteria. Neutrophils (Bld) [#/Vol] 3.2 10*3/uL 2.0-7.7 [facility] Work Phone: Neutrophils/100 WBC (Bld) 49.0 % 47-70 [facility] Work Phone: Potassium [Moles/Vol] 3.6 mmol/L 3.5-5.1 [facility] Work Phone: Sodium [Moles/Vol] 135 mmol/L 136-145 [facility] Work Phone: WBC (Bld) [#/Vol] 6.6 10*3/uL 4.4-11.0 [facility] Work Phone: Blood erythrocytes count (nu mber/volume)on 02-22-2022 RBC (Bld) [#/Vol] 4.50 10*6/uL 4.2-5.4 [facility] Work Phone: Blood hemoglobin measurement (mass/volume)on 02-22-2022 Hemoglobin (Bld) [Mass/Vol] 13.8 g/dL 12.0-15.0 [facility] Work Phone: Blood lymphocytes/100 leukoc yteson 02-22-2022 Lymphocytes/100 WBC (Bld) 34.9 % 19-41 [facility] Work Phone: Blood monocytes/100 leukocyt eson 02-22-2022 Monocytes/100 WBC (Bld) 10.2 % 0-10 [facility] Work Phone: [phone] Blood platelet mean volumeon 02-22-2022 Platelet mean volume (Bld) [Entitic vol] 10.3 fL 6.2-12.0 [facility] Work Phone: [phone] Determination of erythrocyte mean corpuscular volume (MCV)on 02-22-2022 MCV (RBC) [Entitic vol] 88.9 fL 81-99 [facility] Work Phone: [phone] Hematocrit Auto (Bld) [Volum e fraction]on 02-22-2022 Hematocrit (Bld) [Volume fraction] 40.0 % 37-47 [facility] Work Phone: [phone] Laboratory - Chemistry and C hemistry - challengeon 02-22-2022 CO2 [Moles/Vol] 27.0 mmol/L 21.0-32.0 [facility] Work Phone: [phone] Urea nitrogen/Creatinine [Mass ratio] 12.3 mg/mg 10-20 [facility] Work Phone: [phone] Laboratory - Hematology and Cell countson 02-22-2022 Erythrocyte distribution width (RBC) [Entitic vol] 39.8 fL 35.1-43.9 [facility] Work Phone: [phone] Erythrocyte distribution width (RBC) [Ratio] 12.2 % 11.6-14.6 [facility] Work Phone: [phone] Immature granulocytes/100 WBC (Bld) 0.600 % 0.0-0.9 [facility] Work Phone: [phone] Comment on above: IG% - Immature Granu locytes (promyelocytes, myelocytes and metamyelocytes) > 1% indicates that a LEFT SHIFT is Present. MCH (RBC) [Entitic mass] 30.7 pg 27.0-32.0 [facility] Work Phone: [phone] Nucleated RBC/100 WBC (Bld) [Ratio] 0 % 0-5 [facility] Work Phone: MCHC Auto (RBC) [Mass/Vol]on 02-22-2022 MCHC (RBC) [Mass/Vol] 34.5 g/dL 32-36 [facility] Work Phone: No Panel Informationon 02-22 D-Dimer Quantitative (PE/DVT) < 0.27 FEU/ug/m 0.27-0.49 [facility] Work Phone: Comment on above: NORMAL D-Dimer level (<0.50) indicates no DVT or PE. Estimated Creatinine Clearance Calc 84.92 ml/min [facility] Work Phone: Estimated GFR (MDRD) Amer 111 mL/min >60 [facility] Work Phone: Comment on above: GFR Calc Estimated GFR (MDRD) Non-Af Amer 91 mL/min >60 [facility] Work Phone: Comment on above: Non- GFR Calc Troponin I High Sensitivity < 3 pg/mL 3.0-54.0 [facility] Work Phone: Comment on above: Please Note: New Miri t Units and Gender Specific Reference Ranges. For more information see Policy Stat Procedure [place] High Sensitivity Troponin (TNIH) and attachments. Platelets bldon 02-22-2022 Platelets (Bld) [#/Vol] 311 10*3/uL 150-450 [facility] Work Phone: [phone] Serum or plasma calcium alphonso urement (mass/volume)on 02-22-2022 Calcium [Mass/Vol] 9.4 mg/dL 8.5-10.1 [facility] Work Phone: [phone] Serum or plasma creatinine m easurement (mass/volume)on 02-22-2022 Creatinine [Mass/Vol] 0.73 mg/dL 0.55-1.02 [facility] Work Phone: Comment on above: The validity of the calculated GFR & GFRAA in patients over 70 years has not been determined. Clinical correlation is essential. Serum or plasma urea nitroge n measurement (mass/volume)on 02-22-2022 Urea nitrogen [Mass/Vol] 9 mg/dL 7-18 [facility] Work Phone: Thin prep Papanicolaou smear with manual screeningon 02-22-2022 Thin prep Papanicolaou smear with manual screening 5 5-15 [facility] Work Phone: ALCOHOLon 06-10-2021 ALCOHOL Canceled Normal [facility] Comment on above: Order Comment: TEST ALCOHOL WAS CANCELLED, 06/10/2021 20:44 Result Comment: FOR MEDICAL USE ONLY. Performed By: #### A #### [id number] [place] [address] Provider Note - ED v2on 05-29 Provider [...] in history of present illness ====Physical Exam==== Constitutional/Gener al: Alert, patient appears intoxicated Head: Normocephalic and [...] made to minimize errors. Minor errors in health actuary may be present. Please call if questions.. [...] 20:27 BP Systolic (mm Hg): 125 06-10-2021 20:27 BP Diastolic (mm Hg): 92 06-10-2021 20:27 PAST MEDICAL HISTORY ATTESTATION: I have reviewed and confirmed nurse's/medic's notes for patient's medications, allergies, and medical, surgical, family and social history ALLERGIES/INTOLERANC ES: No Known Allergies HEALTH HISTORY: No documented data. OUTPATIENT MEDICATIONS: Home Medications Review Status for Reconciliation: N/A Med Status: N/A No documented data. SIGNIFICANT EVENTS: No documented data. CHEF: Is : no(1) Is : no(1) RESULTS/VITAL [...] the custody of the police. CLINICAL IMPRESSION Diagnosis/Annotation : ED Dx Name:Panic attack Code:F41.0 Disposition: discharged Type: home ATTESTATION CRITICAL CARE TIME Is this a critically ill patient: no Electronic Signatures: Catina Frederick (GERHARD) (Signed 10-Jun-2021 20:57) Authored: ED Notes, HPI, PMH, EKG, MDM/ED Course, Clinical Impression, Attestation, Chart Review, Scores Last Updated: 10-Jun-2021 20:57 by Catina Frederick (GERHARD) References: 1. Data Referenced From Triage - ED 10-Jun-2021 20:27 [facility] Triage - EDon 06-10-2021 Triage - ED [...] alcohol use tonight.). Triage Date/Time: 10-Jun-2021 20:27 ALISTAIR: 4 Pain Rating (0-10): 0 = None Vital Signs: Temperature: 96.9F ( 36.1C) Blood Pressure: 125/92 Mean: Heart Rate: 91 Respiratory Rate: 18 Pulse Oximetry: 99% Height: 5 feet 4 inches. 162.5 CM Weight: 160.2 pounds. Calculated 72.7 kg. (stated) Calculated BMI (kg/m2): 27.531 Calculated BSA (m2) 1.81 Florencio Coma Scale: Best Eye Response: (E4) spontaneous Best Motor Response: (M6) obeys commands Best Verbal Response: (V5) oriented Florencio Score: 15 Cough lasting greater than 3 [...] Medical History Reviewedyes Electronic Signatures: Rocky Hebert (ROSA) (Signed 10-Jun-2021 20:30) Entered: Risk Screens, Pain, Travel History, Chart Review, Scores, Past Medical History Authored: Quick Triage, Risk Screens, Pain, Travel History, Chart Review, Scores, Past Medical History Last Updated: 10-Jun-2021 20:30 by Rocky Hebert (ROSA) [facility] Vital Signs Date Time Vital Sign Value Performing Clinician Facility 04-26-2025 17:00-0400 Diastolic blood pressure 86 mm[Hg] Abisai Haley MD Work Phone: [facility] 04-26-2025 17:00-0400 Heart rate 90 /min Abisai Haley MD Work Phone: [facility] 04-26-2025 17:00-0400 Respiratory rate 29 /min Abisai Haley MD Work Phone: [facility] 04-26-2025 17:00-0400 SaO2% (BldA) [Mass fraction] 95 % Abisai Haley MD Work Phone: [facility] 04-26-2025 17:00-0400 Systolic blood pressure 169 mm[Hg] Abisai Haley MD Work Phone: [facility] 04-26-2025 16:19-0400 Body temperature 98.1 [degF] Abisai Haley MD Work Phone: [facility] 04-26-2025 13:42-0400 Body height 162.56 cm Abisai Haley MD Work Phone: [facility] 04-26-2025 13:42-0400 Body mass index (BMI) [Ratio] 22.3 kg/m2 Abisai Haley MD Work Phone: [facility] 04-26-2025 13:42-0400 Body weight 58.96 kg Abisai Haley MD Work Phone: [facility] 04-12-2025 00:24-0400 Body temperature 98 [degF] Abisai Haley MD Work Phone: [facility] 04-12-2025 00:24-0400 Diastolic blood pressure 66 mm[Hg] Abisai Haley MD Work Phone: [facility] 04-12-2025 00:24-0400 Heart rate 78 /min Abisai Haley MD Work Phone: [facility] 04-12-2025 00:24-0400 Respiratory rate 16 /min Abiasi Haley MD Work Phone: [facility] 04-12-2025 00:24-0400 SaO2% (BldA) [Mass fraction] 100 % Abisai Haley MD Work Phone: [facility] 04-12-2025 00:24-0400 Systolic blood pressure 125 mm[Hg] Abisai Haley MD Work Phone: [facility] 04-11-2025 23:20-0400 Inhaled oxygen flow rate 2 L/min Abisai Haley MD Work Phone: [facility] 04-11-2025 21:46-0400 Body mass index (BMI) [Ratio] 24.4 kg/m2 Abisai Haley MD Work Phone: [facility] 04-11-2025 21:46-0400 Body weight 64.6 kg Abisai Haley MD Work Phone: [phone] [place] [address] 04-11-2025 21:42-0400 Body height 162.56 cm Abisai Haley MD Work Phone: [phone])375-980145 [address] 04-04-2025 17:00-0400 Heart rate 97 /min Abisai Haley MD Work Phone: [phone])100-074542 [place] [address] 04-04-2025 17:00-0400 Respiratory rate 25 /min Abisai Haley MD Work Phone: [phone])880-162042 [place] [address] 04-04-2025 16:03-0400 Body temperature 98.4 [degF] Abisai Haley MD Work Phone: [phone])[phone] [place] [address] 04-04-2025 16:03-0400 Diastolic blood pressure 88 mm[Hg] Abisai Haley MD Work Phone: 1([phone])585-717442 [place] [address] 04-04-2025 16:03-0400 SaO2% (BldA) [Mass fraction] 97 % Abisai Haley MD Work Phone: [phone])[phone] [place] [address] 04-04-2025 16:03-0400 Systolic blood pressure 157 mm[Hg] Abisai Haley MD Work Phone: [phone])524-105542 [place] [address] 04-04-2025 11:51-0400 Body mass index (BMI) [Ratio] 25.1 kg/m2 Abisia Haley MD Work Phone: 1([phone])445-236042 [place] [address] 04-04-2025 11:51-0400 Body weight 66.4 kg Abisai Haley MD Work Phone: 2([phone])024-948742 [place] [address] 04-04-2025 10:24-0400 Body height 162.56 cm Abisai Haley MD Work Phone: [phone] [place] [address] 04-22-2024 13:48-0400 Body mass index (BMI) [Ratio] 29.6 kg/m2 Aretha Praisler-Wood [employer] SH[employer] MANAGER[employer] Work Phone: [facility] 04-22-2024 13:48-0400 Body temperature 97.39 [degF] Aretha Praisler-Wood HOU[employer]Y SHIFT MANAGER[employer] Work Phone: [facility] 04-22-2024 13:48-0400 Body weight 75.8 kg Aretha Praisler-Wood HOURLY SHIFT MANAGER[employer] Work Phone: [facility] 04-22-2024 13:48-0400 Diastolic blood pressure 84 mm[Hg] Aretha Praisler-Wood HOURLY SHIFT MANAGER[employer] Work Phone: [facility] 04-22-2024 13:48-0400 Heart rate 115 /min Aretha Praisler-Wood HOURLY SHIFT MANAGER[employer] Work Phone: [facility] 04-22-2024 13:48-0400 Respiratory rate 20 /min Aretha Praisler-Wood HOURLY SHIFT MANAGER[employer] Work Phone: [facility] 04-22-2024 13:48-0400 SaO2% (BldA) [Mass fraction] 98 % Aretha Praisler-Wood HOURLY SHIFT MANAGER[employer] Work Phone: [facility] 04-22-2024 13:48-0400 Systolic blood pressure 120 mm[Hg] Aretha Praisler-Wood HOURLY SHIFT MANAGER[employer] Work Phone: [facility] 03-22-2024 07:08-0400 Body temperature 97.7 [degF] DO Milana Jose Work Phone: [facility] 03-22-2024 07:08-0400 Diastolic blood pressure 84 mm[Hg] DO Milana Jose Work Phone: [facility] 03-22-2024 07:08-0400 Heart rate 102 /min DO Milana Jose Work Phone: [facility] 03-22-2024 07:08-0400 Respiratory rate 17 /min DO Milana Jose Work Phone: [facility] 03-22-2024 07:08-0400 SaO2% (BldA) [Mass fraction] 95 % DO Milana Jose Work Phone: [facility] 03-22-2024 07:08-0400 Systolic blood pressure 134 mm[Hg] DO Milana Jose Work Phone: [facility] 01-24-2024 21:30-0500 Body temperature 96.9 [degF] DO Milana Jose Work Phone: [facility] 01-24-2024 21:30-0500 Diastolic blood pressure 61 mm[Hg] DO Milana Jose Work Phone: [facility] 01-24-2024 21:30-0500 Heart rate 96 /min DO Milana Jose Work Phone: [facility] 01-24-2024 21:30-0500 Respiratory rate 16 /min DO Milana Jose Work Phone: [facility] 01-24-2024 21:30-0500 SaO2% (BldA) [Mass fraction] 98 % DO Milana Jose Work Phone: [facility] 01-24-2024 21:30-0500 Systolic blood pressure 149 mm[Hg] DO Milana Jose Work Phone: [facility] 01-24-2024 21:25-0500 Body mass index (BMI) [Ratio] 28 kg/m2 DO Milana Jose Work Phone: [facility] 01-24-2024 21:25-0500 Body weight 74 kg DO Milana Jose Work Phone: [facility] 01-24-2024 16:39-0500 Body height 162.56 cm DO Milana Jose Work Phone: [facility] 10-19-2023 10:54-0500 Body height 162.56 cm DO Milana Jose Work Phone: [facility] 10-19-2023 10:54-0500 Body mass index (BMI) [Ratio] 26.2 kg/m2 DO Milana Jose Work Phone: [facility] 10-19-2023 10:54-0500 Body temperature 98.4 [degF] DO Milana Jose Work Phone: [facility] 10-19-2023 10:54-0500 Body weight 69.39 kg DO Milana Jose Work Phone: [facility] 10-19-2023 10:54-0500 Diastolic blood pressure 80 mm[Hg] DO Milana Jose Work Phone: [facility] 10-19-2023 10:54-0500 Heart rate 97 /min DO Milana Jose Work Phone: [facility] 10-19-2023 10:54-0500 Respiratory rate 16 /min DO Milanaigllian Christensennger Work Phone: [facility] 10-19-2023 10:54-0500 SaO2% (BldA) [Mass fraction] 90 % DO Milana Jose Work Phone: [facility] 10-19-2023 10:54-0500 Systolic blood pressure 147 mm[Hg] DO Milana Jose Work Phone: [facility] 10-10-2023 17:58-0500 Diastolic blood pressure 68 mm[Hg] DO Milana Jose Work Phone: [facility] 10-10-2023 17:58-0500 Heart rate 81 /min DO Milana Jose Work Phone: [facility] 10-10-2023 17:58-0500 Respiratory rate 16 /min DO Milana Jose Work Phone: [facility] 10-10-2023 17:58-0500 SaO2% (BldA) [Mass fraction] 97 % DO Milana Jose Work Phone: [facility] 10-10-2023 17:58-0500 Systolic blood pressure 128 mm[Hg] DO Milana Jose Work Phone: [facility] 10-10-2023 15:25-0500 Body mass index (BMI) [Ratio] 26.3 kg/m2 DO Milana Jose Work Phone: [facility] 10-10-2023 15:25-0500 Body temperature 98.4 [degF] DO Milana Jose Work Phone: [facility] 10-10-2023 15:25-0500 Body weight 69.58 kg DO Milana Jose Work Phone: [facility] 09-27-2023 15:27-0400 Body temperature 98.2 [degF] DO Milana Jose Work Phone: [facility] 09-27-2023 15:27-0400 Diastolic blood pressure 78 mm[Hg] DO Milana Jose Work Phone: [facility] 09-27-2023 15:27-0400 Heart rate 92 /min DO Milana Jose Work Phone: [facility] 09-27-2023 15:27-0400 Respiratory rate 17 /min DO Milana Jose Work Phone: [facility] 09-27-2023 15:27-0400 SaO2% (BldA) [Mass fraction] 92 % DO Milana Jose Work Phone: [facility] 09-27-2023 15:27-0400 Systolic blood pressure 145 mm[Hg] DO Milana Jose Work Phone: [facility] 09-15-2023 12:21-0400 Body temperature 98.6 [degF] DO Milana Jose Work Phone: [facility] 09-15-2023 12:21-0400 Diastolic blood pressure 83 mm[Hg] DO Milana Jose Work Phone: [facility] 09-15-2023 12:21-0400 Heart rate 93 /min DO Milana Jose Work Phone: [facility] 09-15-2023 12:21-0400 Respiratory rate 17 /min DO Milana Jose Work Phone: [facility] 09-15-2023 12:21-0400 SaO2% (BldA) [Mass fraction] 94 % DO Milana Jose Work Phone: [facility] 09-15-2023 12:21-0400 Systolic blood pressure 149 mm[Hg] DO Milana Jose Work Phone: [facility] 08-25-2023 10:00-0400 Body height 162.56 cm DO Milana Jose Work [facility] [facility] 08-25-2023 10:00-0400 Body mass index (BMI) [Ratio] 28.3 kg/m2 DO Milana Jose Work Phone: [facility] 08-25-2023 10:00-0400 Body weight 74.84 kg DO Milana Jose Work Phone: [facility] 08-25-2023 10:00-0400 Diastolic blood pressure 85 mm[Hg] DO Milana Jose Work Phone: [facility] 08-25-2023 10:00-0400 Heart rate 63 /min DO Milana Jose Work Phone: [facility] 08-25-2023 10:00-0400 Respiratory rate 18 /min DO Milana Jose Work Phone: [facility] 08-25-2023 10:00-0400 SaO2% (BldA) [Mass fraction] 96 % DO Milana Jose Work Phone: [facility] 08-25-2023 10:00-0400 Systolic blood pressure 136 mm[Hg] DO Milana Jose Work Phone: [facility] 08-23-2023 15:04-0400 Body temperature 97.6 [degF] DO Milana Jose Work Phone: [facility] 08-23-2023 15:04-0400 Diastolic blood pressure 78 mm[Hg] DO Milana Jose Work Phone: [facility] 08-23-2023 15:04-0400 Heart rate 78 /min DO Milana Jose Work Phone: [facility] 08-23-2023 15:04-0400 Respiratory rate 14 /min DO Milana Jose Work Phone: [facility] 08-23-2023 15:04-0400 SaO2% (BldA) [Mass fraction] 99 % DO Milana Jose Work Phone: [facility] 08-23-2023 15:04-0400 Systolic blood pressure 124 mm[Hg] DO Milana Jose Work Phone: [facility] 08-23-2023 11:44-0400 Body height 162.56 cm DO Milana Jose Work Phone: [facility] 08-23-2023 11:44-0400 Body mass index (BMI) [Ratio] 28.3 kg/m2 DO Milana Jose Work Phone: [facility] 08-23-2023 11:44-0400 Body weight 74.88 kg DO Milana Jose Work Phone: [facility] 07-29-2023 17:56-0400 Diastolic blood pressure 74 mm[Hg] DO Milana Jose Work Phone: [facility] 07-29-2023 17:56-0400 Heart rate 73 /min DO Milana Jose Work Phone: [facility] 07-29-2023 17:56-0400 Respiratory rate 15 /min DO Milana Jose Work Phone: [facility] 07-29-2023 17:56-0400 SaO2% (BldA) [Mass fraction] 98 % DO Milana Jose Work Phone: [facility] 07-29-2023 17:56-0400 Systolic blood pressure 117 mm[Hg] DO Milana Jose Work Phone: [facility] 07-29-2023 14:11-0400 Body height 162.56 cm DO Milana Jose Work Phone: [facility] 07-29-2023 14:11-0400 Body mass index (BMI) [Ratio] 27.8 kg/m2 DO Milana Jose Work Phone: [facility] 07-29-2023 14:11-0400 Body temperature 96.3 [degF] DO Milana Joes Work Phone: [facility] 07-29-2023 14:11-0400 Body weight 73.48 kg DO Milana Jose Work Phone: [facility] 07-01-2023 09:44-0400 Body height 162.56 cm DO Milana Jose Work Phone: [facility] 07-01-2023 09:44-0400 Body mass index (BMI) [Ratio] 27.8 kg/m2 DO Milana Jose Work Phone: [facility] 07-01-2023 09:44-0400 Body temperature 98.5 [degF] DO Milana Jose Work Phone: [facility] 07-01-2023 09:44-0400 Body weight 73.48 kg DO Milana Jose Work Phone: [facility] 07-01-2023 09:44-0400 Diastolic blood pressure 88 mm[Hg] DO Milana Jose Work Phone: [facility] 07-01-2023 09:44-0400 Heart rate 88 /min DO Milana Jose Work Phone: [facility] 07-01-2023 09:44-0400 Respiratory rate 18 /min DO Milana Jose Work Phone: [facility] 07-01-2023 09:44-0400 SaO2% (BldA) [Mass fraction] 95 % DO Milana Jose Work Phone: [facility] 07-01-2023 09:44-0400 Systolic blood pressure 136 mm[Hg] DO Milana Jose Work Phone: [facility] 05-25-2023 02:54-0400 Diastolic blood pressure 64 mm[Hg] DO Milana Jose Work Phone: [facility] 05-25-2023 02:54-0400 Heart rate 90 /min DO Milana Jose Work Phone: [facility] 05-25-2023 02:54-0400 Respiratory rate 18 /min DO Milanagillian Christensennger Work Phone: [facility] 05-25-2023 02:54-0400 Systolic blood pressure 132 mm[Hg] DO Milanagillian Christensennger Work Phone: [facility] 05-25-2023 02:11-0400 SaO2% (BldA) [Mass fraction] 94 % DO Milana Jose Work Phone: [facility] 05-24-2023 21:32-0400 Body height 162.99 cm DO Milanagillian Christensennger Work Phone: [facility] 05-24-2023 21:32-0400 Body mass index (BMI) [Ratio] 28.9 kg/m2 DO Milana Jose Work Phone: [facility] 05-24-2023 21:32-0400 Body temperature 96.7 [degF] DO Milana Jose Work Phone: [facility] 05-24-2023 21:32-0400 Body weight 76.9 kg DO Milana Jose Work Phone: [facility] 05-20-2023 09:58-0400 Body height 162.56 cm DO Milana Jose Work Phone: [facility] 05-20-2023 09:57-0400 Body mass index (BMI) [Ratio] 27.6 kg/m2 DO Milana Jose Work Phone: [facility] 05-20-2023 09:57-0400 Body weight 73.02 kg DO Milana Jose Work Phone: [facility] 05-20-2023 09:57-0400 Diastolic blood pressure 98 mm[Hg] DO Milana Jose Work Phone: [facility] 05-20-2023 09:57-0400 Heart rate 81 /min DO Milana Jose Work Phone: [facility] 05-20-2023 09:57-0400 Respiratory rate 18 /min DO Milana Jose Work Phone: [facility] 05-20-2023 09:57-0400 SaO2% (BldA) [Mass fraction] 97 % DO Milana Jose Work Phone: [facility] 05-20-2023 09:57-0400 Systolic blood pressure 156 mm[Hg] DO Milana Jose Work Phone: [facility] 05-05-2023 00:54-0400 Diastolic blood pressure 62 mm[Hg] DO Milana Jose Work Phone: [facility] 05-05-2023 00:54-0400 Heart rate 68 /min DO Milana Jose Work Phone: [facility] 05-05-2023 00:54-0400 Respiratory rate 16 /min DO Milana Jose Work Phone: [facility] 05-05-2023 00:54-0400 SaO2% (BldA) [Mass fraction] 96 % DO Milana Jose Work Phone: [facility] 05-05-2023 00:54-0400 Systolic blood pressure 97 mm[Hg] DO Milana Jose Work Phone: [facility] 05-04-2023 21:23-0400 Body mass index (BMI) [Ratio] 27.2 kg/m2 DO Milana Jose Work Phone: [facility] 05-04-2023 21:23-0400 Body weight 72 kg DO Milana Jose Work Phone: [facility] 05-04-2023 19:53-0400 Body height 162.56 cm DO Milana Jose Work Phone: [facility] 05-04-2023 19:53-0400 Body temperature 97.3 [degF] DO Milana Jose Work Phone: [facility] 04-11-2023 09:46-0400 Body temperature 98 [degF] DO Milana Jose Work Phone: [facility] 04-11-2023 09:46-0400 Diastolic blood pressure 63 mm[Hg] DO Milana Jose Work Phone: [facility] 04-11-2023 09:46-0400 Heart rate 85 /min DO Milana Jose Work Phone: [facility] 04-11-2023 09:46-0400 Respiratory rate 14 /min DO Milana Jose Work Phone: [facility] 04-11-2023 09:46-0400 SaO2% (BldA) [Mass fraction] 97 % DO Milana Jose Work Phone: [facility] 04-11-2023 09:46-0400 Systolic blood pressure 118 mm[Hg] DO Milana Jose Work Phone: [facility] 04-10-2023 03:47-0400 Body height 162.56 cm DO Milana Jose Work Phone: [facility] 04-10-2023 03:47-0400 Body mass index (BMI) [Ratio] 27.4 kg/m2 DO Milana Jose Work Phone: [facility] 04-10-2023 03:47-0400 Body weight 72.5 kg DO Milana Jose Work Phone: [facility] 04-10-2023 02:34-0400 Diastolic blood pressure 61 mm[Hg] DO Milana Jose Work Phone: [facility] 04-10-2023 02:34-0400 Heart rate 87 /min DO Milana Jose Work Phone: [facility] 04-10-2023 02:34-0400 Respiratory rate 16 /min DO Milana Jose Work Phone: [facility] 04-10-2023 02:34-0400 SaO2% (BldA) [Mass fraction] 95 % DO Milana Jose Work Phone: [facility] 04-10-2023 02:34-0400 Systolic blood pressure 114 mm[Hg] DO Milana Jose Work Phone: [facility] 04-10-2023 02:15-0400 Body temperature 98 [degF] DO Milana Jose Work Phone: [facility] 04-09-2023 22:23-0400 Body height 162.56 cm DO Milana Jose Work Phone: [facility] 04-09-2023 22:23-0400 Body mass index (BMI) [Ratio] 26.8 kg/m2 DO Milana Jose Work Phone: [facility] 04-09-2023 22:23-0400 Body weight 70.8 kg DO Milana Jose Work Phone: [facility] 03-22-2023 22:52-0400 Diastolic blood pressure 69 mm[Hg] DO Milana Jose Work Phone: [facility] 03-22-2023 22:52-0400 Heart rate 71 /min DO Milana Jose Work Phone: [facility] 03-22-2023 22:52-0400 Respiratory rate 18 /min DO Milana Jose Work Phone: [facility] 03-22-2023 22:52-0400 SaO2% (BldA) [Mass fraction] 98 % DO Milana Jose Work Phone: [facility] 03-22-2023 22:52-0400 Systolic blood pressure 111 mm[Hg] DO Milana Jose Work Phone: [facility] 03-22-2023 17:49-0400 Body height 162.56 cm DO Milana Jose Work Phone: [facility] 03-22-2023 17:49-0400 Body mass index (BMI) [Ratio] 26.5 kg/m2 DO Milana Jose Work Phone: [facility] 03-22-2023 17:49-0400 Body temperature 96.4 [degF] DO Milana Jose Work Phone: [facility] 03-22-2023 17:49-0400 Body weight 70.08 kg DO Milana Jose Work Phone: [facility] 02-12-2023 10:24-0400 Body temperature 98.2 [degF] DO Milana Jose Work Phone: [facility] 02-12-2023 10:24-0400 Diastolic blood pressure 66 mm[Hg] DO Milana Jose Work Phone: [facility] 02-12-2023 10:24-0400 Heart rate 83 /min DO Milana Jose Work Phone: [facility] 02-12-2023 10:24-0400 Respiratory rate 16 /min DO Milana Jose Work Phone: [facility] 02-12-2023 10:24-0400 SaO2% (BldA) [Mass fraction] 98 % DO Milana Jose Work Phone: [facility] 02-12-2023 10:24-0400 Systolic blood pressure 104 mm[Hg] DO Milana Garcia Work Phone: [facility] 01-21-2023 15:06-0500 Diastolic blood pressure 82 mm[Hg] Dr. Calvin Waldrop Work Phone: [facility] 01-21-2023 15:06-0500 Heart rate 90 /min Dr. Calvin Waldrop Work Phone: [facility] 01-21-2023 15:06-0500 Respiratory rate 14 /min Dr. Calvin Waldrop Work Phone: [facility] 01-21-2023 15:06-0500 SaO2% (BldA) [Mass fraction] 98 % Dr. Calvin Waldrop Work Phone: [facility] 01-21-2023 15:06-0500 Systolic blood pressure 165 mm[Hg] Dr. Calvin Waldrop Work Phone: [facility] 01-21-2023 11:49-0500 Body height 162.[address] Calvin Waldrop Work Phone: [facility] 01-21-2023 11:49-0500 Body mass index (BMI) [Ratio] 27.5 kg/m2 Dr. Calvin Waldrop Work Phone: [facility] 01-21-2023 11:49-0500 Body temperature 97.2 [degF] Dr. Calvin Waldrop Work Phone: [facility] 01-21-2023 11:49-0500 Body weight 72.[address] Calvin Waldrop Work Phone: [facility] 11-19-2022 10:59-0500 Diastolic blood pressure 69 mm[Hg] Dr. Calvin Waldrop Work Phone: [facility] 11-19-2022 10:59-0500 Heart rate 83 /min Dr. Calvin Waldrop Work Phone: [facility] 11-19-2022 10:59-0500 Systolic blood pressure 120 mm[Hg] Dr. Calvin Waldrop Work Phone: [facility] 11-19-2022 10:47-0500 Body temperature 98.5 [degF] Dr. Calvin Waldrop Work Phone: [facility] 11-19-2022 10:47-0500 Respiratory rate 16 /min Dr. Calvin Waldrop Work Phone: [facility] 11-19-2022 10:47-0500 SaO2% (BldA) [Mass fraction] 97 % Dr. Calvin Waldrop Work Phone: [facility] 11-18-2022 13:57-0500 Body height 162.[address] Calvin Waldrop Work Phone: [facility] Work Phone: 11-18-2022 13:57-0500 Body mass index (BMI) [Ratio] 28.5 kg/m2 Dr. Calvin Waldrop Work Phone: [facility] 11-18-2022 13:57-0500 Body weight 75.[address] Calvin Waldrop Work Phone: [facility] 10-31-2022 11:49-0500 Body temperature 98.2 [degF] Dr. Calvin Waldrop Work Phone: [facility] 10-31-2022 11:49-0500 Diastolic blood pressure 88 mm[Hg] Dr. Calvin Waldrop Work Phone: [facility] 10-31-2022 11:49-0500 Heart rate 98 /min Dr. Calvin Waldrop Work Phone: [facility] 10-31-2022 11:49-0500 Respiratory rate 14 /min Dr. Calvin Waldrop Work Phone: [facility] 10-31-2022 11:49-0500 SaO2% (BldA) [Mass fraction] 97 % Dr. Calvin Waldrop Work Phone: [facility] 10-31-2022 11:49-0500 Systolic blood pressure 136 mm[Hg] Dr. Calvin Waldrop Work Phone: [facility] 10-07-2022 14:59-0500 Body temperature 97.8 [degF] Dr. Calvin Waldrop Work Phone: [facility] 10-07-2022 14:59-0500 Diastolic blood pressure 80 mm[Hg] Dr. Calvin Waldrop Work Phone: [facility] 10-07-2022 14:59-0500 Heart rate 107 /min Dr. Calvin Waldrop Work Phone: [facility] 10-07-2022 14:59-0500 Respiratory rate 16 /min Dr. Calvin Waldrop Work Phone: [facility] 10-07-2022 14:59-0500 SaO2% (BldA) [Mass fraction] 98 % Dr. Calvin Waldrop Work Phone: [facility] 10-07-2022 14:59-0500 Systolic blood pressure 154 mm[Hg] Dr. Calvin Waldrop Work Phone: [facility] 09-05-2022 23:51-0400 Diastolic blood pressure 68 mm[Hg] [facility] Work Phone: 09-05-2022 23:51-0400 Heart rate 115 /min [facility] Work Phone: 09-05-2022 23:51-0400 Respiratory rate 16 /min [facility] Work Phone: 09-05-2022 23:51-0400 SaO2% (BldA) [Mass fraction] 96 % [facility] Work Phone: 09-05-2022 23:51-0400 Systolic blood pressure 129 mm[Hg] [facility] Work Phone: 09-05-2022 21:11-0400 Body height 162.56 cm [facility] Work Phone: 09-05-2022 21:11-0400 Body mass index (BMI) [Ratio] 27.5 kg/m2 [facility] Work Phone: 09-05-2022 21:11-0400 Body temperature 98 [degF] [facility] Work Phone: 09-05-2022 21:11-0400 Body weight 72.7 kg [facility] Work Phone: 07-21-2022 18:58-0400 Body temperature 99 [degF] Samantha Deleon [employer] Work Phone: [facility] 07-21-2022 18:58-0400 Body weight 72.39 kg Samantha Deleon [employer] Work Phone: [facility] 07-21-2022 18:58-0400 Diastolic blood pressure 84 mm[Hg] Samantha Deleon [employer] Work Phone: [facility] 07-21-2022 18:58-0400 Heart rate 83 /min Samantha Deleon [employer] Work Phone: [facility] 07-21-2022 18:58-0400 Respiratory rate 16 /min Samantha Deleon [employer] Work Phone: [facility] 07-21-2022 18:58-0400 SaO2% (BldA) [Mass fraction] 98 % Samantha Deleon [employer] Work Phone: [facility] 07-21-2022 18:58-0400 Systolic blood pressure 138 mm[Hg] Samantha Deleon [employer] Work Phone: [facility] 05-31-2022 12:28-0400 Body mass index (BMI) [Ratio] 26.3 kg/m2 [facility] Work Phone: 05-31-2022 12:28-0400 Body temperature 97.3 [degF] [facility] Work Phone: 05-31-2022 12:28-0400 Body weight 69.51 kg Calvin Waldrop [facility] Work Phone: 05-31-2022 12:28-0400 Diastolic blood pressure 76 mm[Hg] Calvin Waldrop [facility] Work Phone: 05-31-2022 12:28-0400 Heart rate 69 /min Calvin Waldrop [facility] Work Phone: 05-31-2022 12:28-0400 Respiratory rate 18 /min Calvin Waldrop [facility] Work Phone: 05-31-2022 12:28-0400 SaO2% (BldA) [Mass fraction] 99 % Calvin Waldrop [facility] Work Phone: 05-31-2022 12:28-0400 Systolic blood pressure 116 mm[Hg] [facility] 02-22-2022 15:02-0400 Diastolic blood pressure 84 mm[Hg] [facility] Work Phone: 02-22-2022 15:02-0400 Heart rate 71 /min [facility] Work Phone: 02-22-2022 15:02-0400 Respiratory rate 14 /min [facility] Work Phone: 02-22-2022 15:02-0400 SaO2% (BldA) [Mass fraction] 96 % [facility] Work Phone: 02-22-2022 15:02-0400 Systolic blood pressure 120 mm[Hg] [facility] Work Phone: 02-22-2022 12:30-0400 Body temperature 96.2 [degF] [facility] Work Phone: 02-22-2022 12:12-0400 Body height 162.56 cm [facility] Work Phone: 02-22-2022 12:12-0400 Body mass index (BMI) [Ratio] 26.3 kg/m2 [facility] Work Phone: 02-22-2022 12:12-040 Body weight 69.5 kg [facility] Work Phone: 06-10-2021 22:58-0400 Diastolic blood pressure 62 mm[Hg] No Pcp Required [facility] 06-10-2021 22:58-0400 Heart rate 88 /min No Pcp Required [facility] 06-10-2021 22:58-0400 Respiratory rate 16 /min No Pcp Required [facility] 06-10-2021 22:58-0400 SaO2% (BldA) [Mass fraction] 99 % No Pcp Required [facility] 06-10-2021 22:58-0400 Systolic blood pressure 105 mm[Hg] No Pcp Required [facility] 06-10-2021 22:27-0400 Body height 162.5 cm No Pcp Required [facility] 06-10-2021 22:27-0400 Body temperature 96.98 [degF] No Pcp Required [facility] 06-10-2021 22:27-0400 Body weight 72.7 kg No Pcp Required [facility] Encounters Encounter Date Encounter Type Care Provider Facility Start: 04-26-2025 ambulatory Julius Moncada Facility :[facility] [place] Start: 04-26-2025 Evaluation and management of inpatient Dr. Julius Moncada MD -Progressive Care Unit Work Phone: Start: 04-11-2025 End: 04-12-2025 Emergency department patient visit Abisai Haley MD Work Phone: -Emergency Department Work Phone: Start: 04-04-2025 End: 04-04-2025 Emergency department patient visit Abisai Haley MD Work Phone: -Emergency Department Work Phone: Start: 01-03-2025 ambulatory Abisai Haley Facility:[facility] Start: 11-12-2024 End: 11-12-2024 Emergency department patient visit Abisai Haley Facility:[facility] Start: 10-09-2024 End: 10-09-2024 ambulatory Chalon Sudha Facility:[facility] [place] Start: 09-25-2024 End: 09-25-2024 ambulatory Ivon Sams Facility:[facility] Start: 08-28-2024 End: 08-28-2024 ambulatory Chalon Sudha Facility:[facility] Start: 08-22-2024 End: 08-22-2024 ambulatory Chalon Sudha Facility:[facility] [place] [place] Start: 08-22-2024 End: 08-22-2024 ambulatory Chalon Sudha Facility:[facility] Start: 08-15-2024 End: 08-15-2024 ambulatory Chalon Sudha Facility:[facility] Start: 07-11-2024 End: 07-11-2024 Emergency department patient visit Shane Jacobs Facility:[facility] Start: 04-22-2024 End: 04-22-2024 ambulatory IHSAN AGUILAR Facility:[facility] Start: 04-22-2024 End: 04-22-2024 Patient encounter procedure Aretha Schofield APRN.[facility] Work Phone: [facility] Comment on above: Sinus congestion (Pr imary Dx); Wheezing; Nausea Start: 03-22-2024 End: 03-22-2024 Patient encounter procedure DO Milana Garcia Work Phone: [facility] Work Phone: Start: 03-21-2024 End: 03-21-2024 ambulatory DO Milana Garcia Work Phone: [facility] Work Phone: Start: 03-21-2024 End: 03-21-2024 Patient encounter procedure DO Milana Garcia Work Phone: [facility] Start: 01-24-2024 End: 01-24-2024 Emergency department patient visit DO Milana Garcia Work Phone: [facility]-Emergency Department Work Phone: Start: 10-19-2023 End: 10-19-2023 Patient encounter procedure DO Milana Garcia Work Phone: [facility] Work Phone: Start: 10-15-2023 End: 10-15-2023 ambulatory DO Milana Garcia Work Phone: [facility] Work Phone: Start: 10-15-2023 End: 10-15-2023 Patient encounter procedure DO Milana Garcia Work Phone: [facility] Work Phone: Start: 10-10-2023 End: 10-10-2023 Emergency department [facility] Start: 09-27-2023 End: 09-27-2023 Patient encounter procedure DO Milana Garcia Work Phone: [facility] Work Phone: Start: 09-15-2023 End: 09-15-2023 Patient encounter procedure DO Milana Garcia Work Phone: [facility] Work Phone: Start: 08-25-2023 End: 08-25-2023 ambulatory DO Milana Garcia Work Phone: [facility] Work Phone: Start: 08-25-2023 End: 08-25-2023 Patient encounter procedure DO Milana Garcia Work Phone: [facility] Work Phone: Start: 08-25-2023 End: 08-25-2023 Patient encounter procedure DO Milana Garcia Work Phone: [facility] Work Phone: Start: 08-23-2023 End: 08-23-2023 Emergency department patient visit DO Milana Garcia Work Phone: [facility]-Emergency Department Work Phone: Start: 07-29-2023 End: 07-29-2023 Emergency department [facility] Start: 07-19-2023 End: 07-19-2023 ambulatory DO Milana Garcia Work Phone: [facility] Work Phone: Start: 07-19-2023 End: 07-19-2023 Patient encounter procedure DO Milana Garcia Work Phone: [facility] Work Phone: Start: 07-01-2023 End: 07-01-2023 Patient encounter procedure DO Milana Garcia Work Phone: [facility] Work Phone: Start: 05-25-2023 Registered Referred DO [facility] Start: 05-24-2023 End: 05-25-2023 Emergency department patient visit DO Milana Garcia Work Phone: [facility]-Emergency Department Start: 05-20-2023 End: 05-20-2023 Patient encounter procedure DO Milana Garcia Work Phone: [facility] Start: 05-19-2023 End: 05-19-2023 ambulatory DO Milana Garcia Work Phone: [facility] Work Phone: Start: 05-19-2023 End: 05-19-2023 Patient encounter procedure DO Milana Trenter Work Phone: [facility] Start: 05-04-2023 End: 05-05-2023 Emergency department patient visit DO Milana Trenter Work Phone: [facility]-Emergency Department Start: 04-11-2023 Non-patient / Non-visit DO Yamel younger Jose Work Phone: [facility] Start: 04-10-2023 End: 04-10-2023 Non-patient / Non-visit DO Milana Jose Work Phone: [facility] Start: 04-10-2023 End: 04-11-2023 Evaluation and management of inpatient DO Milana Jose Work Phone: [facility]-Progressive Care Unit Start: 04-09-2023 End: 04-09-2023 Patient encounter procedure DO Milanagillian Christensennger Work Phone: [facility] Start: 03-22-2023 End: 03-22-2023 Emergency department patient visit DO Milana Garcia Work Phone: [facility]-Emergency Department Start: 02-12-2023 End: 02-12-2023 Patient encounter procedure DO Milanagillian Christensennger Work Phone: [facility] Start: 01-21-2023 End: 01-21-2023 Emergency department patient visit Dr. Calvin Waldrop Work Phone: [facility]-Emergency Department Start: 11-19-2022 Non-patient / Non-visit Dr. Luis Waldrop Work Phone: [facility] Start: 11-19-2022 Non-patient / Non-visit Dr. Luis Waldrop Work Phone: [facility] Start: 11-18-2022 Non-patient / Non-visit Dr. Luis Waldrop Work Phone: [facility] Start: 11-18-2022 Non-patient / Non-visit Dr. Luis Waldrop Work Phone: [facility] Start: 11-18-2022 End: 11-19-2022 Evaluation and management of inpatient Dr. Calvin Waldrop Work Phone: [facility] Start: 10-31-2022 End: 10-31-[address] Calvin Waldrop Work Phone: [facility] Start: 10-07-2022 End: 10-07-2022 Patient encounter procedure Dr. Calvin Waldrop Work Phone: [facility] Start: 09-05-2022 End: 09-06-2022 [facility] Start: 07-21-2022 End: 07-21-2022 Subsequent hospital visit by physician Xr [facility] Work Phone: Radiology Comment on above: Hip pain, acute, lef t [M25.552] Start: 07-21-2022 End: 07-21-2022 Patient encounter procedure Samantha Deleon APRN.CNP Work Phone: [facility] Comment on above: Hip pain, acute, lef t (Primary Dx) Start: 05-31-2022 End: 05-31-2022 Patient encounter procedure Calvin Waldrop [facility] Start: 02-22-2022 End: 02-22-2022 [facility] Start: 06-10-2021 End: 06-10-2021 Emergency department patient visit Noe Engel [facility] Emergency 07 Procedures Date Procedure Procedure Detail Performing Clinician Start: 04-26-2025 Urnls dip stick/tabl et reagent auto microscopy Abisai Haley MD Work Phone: Start: 04-26-2025 Estimated creatinine clearance Abisai Haley MD Work Phone: Start: 04-26-2025 Computed tomography of abdomen and pelvis with intravenous contrast Abisai Haley MD Work Phone: Start: 04-11-2025 Urnls dip stick/tabl et reagent auto microscopy Abisai Haley MD Work Phone: Start: 04-11-2025 X-ray of chest, PA a nd lateral views Abisai Haley MD Work Phone: Start: 04-11-2025 Estimated creatinine clearance Abisai Haley MD Work Phone: Start: 04-04-2025 Computed tomography of abdomen and pelvis with intravenous contrast Abisai Haley MD Work Phone: Start: 04-04-2025 Plain chest X-ray Stefano Haley MD Work Phone: Start: 03-22-2024 X-ray of both feet DO K ristin Jose Work Phone: Start: 01-24-2024 Plain chest X-ray DO Kr istin Jose Work Phone: Start: 10-10-2023 Plain chest X-ray DO Kr istin Jose Work Phone: Start: 10-10-2023 SARS-CoV-2 & FLU Ant igen (Rapid) DO Milanagillian Christensennger Work Phone: Start: 08-23-2023 Computed tomography of abdomen and pelvis with intravenous contrast DO Milana Jose Work Phone: Start: 07-29-2023 Computed tomography of abdomen and pelvis with intravenous contrast DO Milanagillian Christensennger Work Phone: Start: 07-29-2023 Plain chest X-ray DO Kr istin Jose Work Phone: Start: 05-24-2023 Plain chest X-ray DO Kr istin Jose Work Phone: Start: 05-24-2023 CT of head without contrast DO Milana Jose Work Phone: Start: 05-04-2023 CT of head without contrast DO Milana Jose Work Phone: Start: 05-04-2023 Plain chest X-ray DO Kr istin Jose Work Phone: Start: 04-10-2023 Bacteria identified in Blood by Culture DO Milana Jose Work Phone: Start: 04-10-2023 MRI of brain without contrast DO Milana Garcia Work Phone: Start: 04-09-2023 Plain chest X-ray DO Lauro Garcia Work Phone: Start: 04-09-2023 Plain chest X-ray DO Lauro Garcia Work Phone: Start: 01-21-2023 Plain chest X-ray Dr. Julissa Waldrop Work Phone: Start: 11-18-2022 Plain chest X-ray Dr. Julissa Waldrop Work Phone: Start: 09-05-2022 CT of head without contrast Calvin Waldrop Start: 07-21-2022 Radex hip unilateral with pelvis 2-3 views Samantha Deleon [employer] Work Phone: Start: 02-22-2022 Plain chest X-ray Start: 06-21-2020 Mammography Samantha Ri ggs [employer] Work Phone: Start: 09-11-2015 Colonoscopy Samantha Ri ggs [employer] Work Phone: Bacteria identified in Blood by Culture DO Milana Garcia Work Phone: Plan of Treatment Date Care Activity Detail Author Start: 03-03-2034 Urine microalbumin profile DTaP,Tdap,Td Vaccine (3 - Td or Tdap) [facility] Start: 04-27-2025 [facility] Start: 04-27-2025 Hepatic function panel [facility] Start: 04-27-2025 Prothrombin time [facility] Start: 04-27-2025 Serum inorganic phosphate measurement [facility] Start: 04-27-2025 Thyroid stimulating hormone measurement [facility] Start: 04-26-2025 End: 04-26-2025 [facility] Start: 04-26-2025 Care regimes management [facility] Start: 04-26-2025 Notification of physician [facility] Start: 04-26-2025 Admission procedure [facility] Start: 04-26-2025 Ambulation without limitation [facility] Start: 04-26-2025 Assessment of risk of venous thromboembolism [facility] Start: 04-26-2025 Insertion of catheter into peripheral vein [facility] Start: 04-26-2025 Providing care according to standard [facility] Start: 04-26-2025 Verification routine [facility] Start: 04-26-2025 Hospital admission, emergency, from emergency room, medical nature [facility] Start: 04-12-2025 [facility] Start: 04-11-2025 [facility] Start: 04-05-2025 [facility] Start: 04-04-2025 [facility] Start: 04-04-2025 End: 04-04-2025 [facility] Start: 07-30-2024 Covid-19 Vaccine () Covid-19 Vaccine () [facility] Start: 07-30-2024 Influenza vaccination [facility] Start: 06-07-2024 Hepatitis B Vaccine (3 of 3 - Hep B Twinrix 3-dose series) Hepatitis B Vaccine (3 of 3 - Hep B Twinrix 3-dose series) [facility] Start: 03-22-2024 Patient referral [facility] Work Phone: Start: 01-24-2024 [facility] Start: 01-24-2024 End: 01-24-2024 [facility] Start: 10-26-2023 HPV TESTING HPV TESTING [facility] Start: 10-26-2023 PAP TESTING PAP TESTING [facility] Start: 10-26-2023 Screening for malignant neoplasm of cervix [facility] Start: 10-15-2023 Elastase, pancreatic (el-1), fecal; quantitative [facility] Start: 10-10-2023 [facility] Start: 10-10-2023 [facility] Start: 09-26-2023 Urine microalbumin profile DTAP,TDAP,TD (2 - Td or Tdap) [facility] Start: 07-29-2023 [facility] Start: 05-24-2023 [facility] Start: 05-04-2023 [facility] Start: 04-11-2023 Patient discharge [facility] Start: 04-10-2023 Following clinical pathway protocol [facility] Start: 04-10-2023 Ambulation without limitation [facility] Start: 04-10-2023 Assessment of risk of venous thromboembolism [facility] Start: 04-10-2023 Care regimes management [facility] Start: 04-10-2023 Inhalation therapy procedure [facility] Start: 04-10-2023 Insertion of catheter into peripheral vein [facility] Start: 04-10-2023 Measuring intake and output [facility] Start: 04-10-2023 Notification of physician [facility] Start: 04-10-2023 Providing care according to standard [facility] Start: 04-10-2023 Tobacco use cessation education [facility] Start: 04-10-2023 [facility] Start: 04-10-2023 Electrocardiographic procedure [facility] Start: 04-10-2023 Verification routine [facility] Start: 04-10-2023 Admission procedure [facility] Start: 04-10-2023 End: 04-10-2023 Blood culture [facility] Start: 01-21-2023 [facility] Start: 11-19-2022 Patient referral [facility] Work Phone: Start: 11-19-2022 Patient discharge [facility] Start: 11-19-2022 Notification of physician [facility] Start: 11-19-2022 Patient education [facility] Start: 11-19-2022 Pulse taking [facility] Start: 11-19-2022 Taking patient vital signs [facility] Start: 11-19-2022 Wound care [facility] Start: 11-19-2022 [facility] Start: 11-19-2022 Catheterization of left heart [facility] Work Phone: Start: 11-18-2022 Assessment of risk of venous thromboembolism [facility] Start: 11-18-2022 Care regimes management [facility] Start: 11-18-2022 Insertion of catheter into peripheral vein [facility] Start: 11-18-2022 Measuring intake and output [facility] Start: 11-18-2022 Providing care according to standard [facility] Start: 11-18-2022 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 to 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 saw operator [facility] Start: 11-18-2022 [facility] Start: 11-18-2022 Following clinical pathway protocol [facility] Start: 11-18-2022 Catheterization of vein [facility] Start: 11-18-2022 Medication not administered [facility] Start: 11-18-2022 Notification of physician [facility] Start: 11-18-2022 Preoperative care [facility] Start: 11-18-2022 [facility] Start: 11-18-2022 Admission procedure [facility] Start: 10-07-2022 Patient referral [facility] Work Phone: Start: 07-30-2022 Influenza vaccination INFLUENZA (#1) [facility] Start: 2022 COLOGUARD (FIT-DNA) COLOGUARD (FIT-DNA) [facility] Start: 2022 Colonoscopy COLONOSCOPY [facility] Start: 2022 COLORECTAL CANCER SCREENING COLORECTAL CANCER SCREENING [facility] Start: [address] COLONOGRAPHY [facility] Start: 2022 FECAL OCCULT BLOOD FECAL OCCULT BLOOD [facility] Start: 2022 Screening for malignant neoplasm of colon [facility] Start: 2022 SIGMOIDOSCOPY SIGMOIDOSCOPY [facility] Start: 07-15-2021 ANNUAL PCP TEAM CHRONIC DISEASE VISIT ANNUAL PCP TEAM CHRONIC DISEASE VISIT [facility] Start: 07-03-2021 Screening for malignant neoplasm of breast Mammogram Screening [facility] Start: 06-21-2021 Hepatitis B screening URINE ALBUMIN:CREATININE RATIO [facility] Start: 06-21-2021 Hepatitis B surface antibody level LDL CHOLESTEROL [facility] Start: 06-21-2021 Mammography MAMMOGRAM [facility] Start: 05-19-2021 COVID-19 VACCINE (3 - Booster for Pfizer series) COVID-19 VACCINE (3 - Booster for Pfizer series) [facility] Start: 11-19-2020 Hemoglobin A1c measurement HbA1C [facility] Start: 11-19-2020 Hemoglobin A1c/Hemoglobin.total in Blood HBA1C [facility] Start: 07-19-2020 3 comp foot exam completed DIABETIC FOOT EXAM [facility] Start: 07-19-2020 Diabetic foot examination Diabetic Foot Exam [facility] Start: 12-26-2019 Glaucoma screening Dilated Retinal Exam [facility] Start: 12-26-2019 Hepatitis C antibody, confirmatory test DILATED RETINAL EXAM [facility] Start: 10-20-2014 PNEUMOCOCCAL (2 - PCV) PNEUMOCOCCAL (2 - PCV) [facility] Start: 1995 Anxiety Screening Anxiety Screening [facility] Start: 1995 BP CONTROLLED (<130/80) BP CONTROLLED (<130/80) [facility] Start: 1995 HEPATITIS C SCREENING HEPATITIS C SCREENING [facility] Start: 1995 Hepatitis C screening Hepatitis C Screening [facility] Start: 1995 HIV SCREENING HIV SCREENING [facility] Start: 1995 HIV screening HIV Screening [facility] Start: 1977 HEPATITIS B (1 of 3 - 3-dose series) HEPATITIS B (1 of 3 - 3-dose series) [facility] Alanine aminotransfe rase [Enzymatic activity/volume] in Serum or Plasma [facility] Albumin [Mass/volume ] in Serum or Plasma [facility] Alkaline phosphatase [Enzymatic activity/volume] in Serum or Plasma [facility] Anion gap in Serum or Plasma [facility] Bacteria identified in Blood by Culture Blood Culture [facility] Bilirubin, total measurement [facility] Bilirubin.direct [Ma ss/volume] in Serum or Plasma [facility] BUN/Creatinine ratio [facility] Calcium [Mass/volume ] in Serum or Plasma [facility] Carbon dioxide, tota l [Moles/volume] in Central venous blood [facility] Cardiac event recording [facility] Creatinine [Mass/vol ume] in Serum or Plasma [facility] Erythrocyte mean cor puscular volume determination [facility] Fat [Mass/mass] in Stool [facility] Fat.neutral [Presenc e] in Stool [facility] Glucose [Mass/volume ] in Serum or Plasma [facility] Hematocrit [Volume F raction] of Blood [facility] Hemoglobin [Mass/vol ume] in Blood [facility] Hemoglobin A1c/Hemoglobin.total in Blood [facility] INR in Blood by Coag ulation assay [facility] Leukocytes [#/volume] in Blood [facility] Magnesium measurement [facility] Mean corpuscular hem oglobin concentration determination [facility] Mean corpuscular hem oglobin determination [facility] Measurement of renal function [facility] Neutrophil count [facility] Neutrophil percent differential count [facility] Patient Education [facility] Work Phone: Patient referral [facility] Work Phone: Platelets [#/volume] in Blood [facility] Potassium measurement [facility] Red blood cell count [facility] Red cell distributio n width determination [facility] Serum chloride measurement [facility] Sodium measurement [facility] Total protein measurement [facility] Troponin T.cardiac [Mass/volume] in Serum or Plasma by High sensitivity method [facility] Urea nitrogen [Mass/ volume] in Serum or Plasma [facility] Immunizations Immunization Date Immunization Notes Care Provider Juany griffith 10-16-2022 influenza virus vacc ine, unspecified formulation Aretha Schofield [employer] Work Phone: [facility] 09-16-2018 influenza, injectabl e, quadrivalent, contains preservative Samantha Deleon [employer]Y SHIFT MANAGER[employer] Work Phone: [facility] Work Phone: 11-19-2015 influenza, injectabl e, quadrivalent, contains preservative Samantha Deleon [employer] SH[employer] MANAGER[employer] Work Phone: [facility] 10-02-2014 influenza, seasonal, injectable Samantha Deleon [employer] Work Phone: [facility] Work Phone: 09-27-2014 influenza, injectabl e, quadrivalent, preservative free DO Milana Garcia Work Phone: [facility] 09-27-2014 influenza, seasonal, injectable [facility] 10-20-2013 pneumococcal polysaccharide vaccine, 23 valent Samantha Deleon [employer] Work Phone: [facility] Work Phone: 09-27-[address] [facility] Work Phone: 09-27-2013 pneumococcal vaccine , unspecified formulation Dr. Calvin Waldrop Work Phone: [facility] 09-26-2013 tetanus toxoid, redu lenin diphtheria toxoid, and acellular pertussis vaccine, adsorbed Samantha Adrienne [employer] Work Phone: [facility] 09-15-2013 influenza virus vacc ine, unspecified formulation Samantha Deleon [employer] Work Phone: [facility] Work Phone: 09-15-2013 influenza, injectabl e, quadrivalent, preservative free DO Milana Garcia Work Phone: [facility] 09-15-2013 influenza, seasonal, injectable [facility] Payers Date Payer Category Payer Self-pay [id number] 2024 Self-pay 2022 Unknown 2020 Unknown [id number] 2017 Unknown [id number] Private Health Insurance [facility] [id number] Unknown [id number] Unknown [id number] [id number] 62 Unknown [id number] 2.840.1.558212.3.579.2.4 62 Unknown [id number] 2.840.1.738780.3.579.2.4 62 Unknown [id number] 2.16.840.1.862461.3.579.2.4 62 Unknown [id number] 2.16.840.1.712356.3.579.2.4 62 Unknown [id number] 2.16.840.1.439959.3.579.2.4 62 Unknown [id number] 2.16.840.1.400479.3.579.2.4 62 Unknown [id number] 2.16.840.1.564698.3.579.2.4 62 Unknown [id number] 2.16.840.1.781366.3.579.2.4 62 Unknown [id number] 2.16.840.1.664402.3.579.2.4 62 Unknown [id number] 2.16.840.1.376199.3.579.2.4 62 Unknown [id number] 2.16.840.1.276116.3.579.2.4 62 Unknown [id number] 2.16.840.1.100930.3.579.2.4 62 Unknown [id number] 2.16.840.1.974218.3.579.2.4 62 Unknown [id number] 2.16.840.1.156339.3.579.2.4 62 Unknown [id number] 2.16.840.1.624229.3.579.2.4 62 Unknown [id number] 2.16.840.1.086861.3.579.2.4 62 Unknown [id number] 2.16.840.1.211847.3.579.2.4 62 Unknown [id number] 2.16.840.1.956497.3.579.2.4 62 Unknown [id number] 2.16.840.1.210460.3.579.2.4 62 Social History Date Type Detail Facility [facility] Start: 02-22-2022 End: 01-24-2024 Tobacco smoking consumption unknown [facility] Start: 04-14-2021 [facility] Start: 04-14-2021 None [facility] Start: 04-14-2021 Cigarettes [facility] Start: 1975 Sex Assigned At Female [facility] Start: 07-21-2022 Tobacco smoking stat us WYIS Ex-smoker [facility] Start: 11-29-1996 End: 07-11-2020 History of tobacco use Current smoker [facility] Start: 11-29-1996 End: 07-11-2020 History of tobacco use Cigarette Smoker [facility] Start: 11-04-2020 End: 07-21-2022 Cigarettes smoked current (pack per day) - Reported 0.5 [facility] Start: 07-21-2022 Tobacco use and exposure Smokeless tobacco non-user [facility] Start: 07-21-2022 End: 04-22-2024 Alcohol intake Current drinker of alcohol (finding) [facility] Start: 06-05-2020 End: 08-01-2020 History SDOH Alcohol Frequency 3 [facility] Start: 06-05-2020 End: 08-01-2020 History SDOH Alcohol Std Drinks 1 [facility] Start: 06-05-2020 End: 08-01-2020 History SDOH Alcohol Binge 2 [facility] Start: 09-16-2018 History SDOH 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 [facility] Start: 01-15-2020 History SDOH Social Connections Living 8 [facility] Start: 06-05-2020 History SDOH Physica l Activity DPW 0 [facility] Start: 07-01-2020 History SDOH Financial 5 [facility] Start: 01-14-2020 Education 12 [facility] Start: 07-21-2022 Tobacco Comment stopped 3 weeks ago [facility] Start: 09-26-2014 With Family [facility] Start: 06-05-2020 End: 11-04-2020 Social connection and isolation panel [facility] Frequency of Communication with Friends and Family Not on file [facility] Do you belong to any clubs or organizations such as advent groups, unions, fraternal or athletic groups, or school groups? No [facility] How often to you hav e a drink containing alcohol? 2-4 times a month [facility] How many standard drinks containing alcohol do you have on a typical day? 1 or 2 [facility] How often do you hav e 6 or more drinks on 1 occasion? Less than monthly [facility] Do you feel stress - tense, restless, nervous, or anxious, or unable to sleep at night because your mind is troubled all the time - these days [OSQ] To some extent [facility] (I/We) worried wheth er (my/our) food would run out before (I/we) got money to buy more. Never true [facility] Start: 07-15-2020 Gender identity Identifies as female gender (finding) [facility] Start: 07-15-2020 Sexual orientation Heterosexual (chucky acevedo) [facility] Start: 04-04-2025 Tobacco smoking stat us WYIS Current some day smoker [facility] Start: 04-11-2025 End: 04-26-2025 Tobacco smoking status WYIS Current Light tobacco smoker [facility] NEGATED: Highlighted row [facility] Goals Date Patient Goal Desired Activity /State Functional Status Date Assessment Result Facility 04-11-2023 Functional status Activity Ability Indepe ndent [facility] Work Phone: 04-11-2023 Functional status Ambulates;Bathroom Priv ilege [facility] Work Phone: 11-19-2022 Functional status Ambulates [facility] Work Phone: 11-18-2022 Functional status Assistive Devices None [facility] Work Phone: Mental Status Date Assessment Result Facility 04-11-2025 Cognitive function Voice/Name [facility] Work Phone: 01-24-2024 Cognitive function Voice/Name [facility] Work Phone: 10-10-2023 Cognitive function Level Of Cons ciousness Awake;Alert;Appropriate [facility] Work Phone: 07-29-2023 Cognitive function Level Of Cons ciousness Awake;Alert;Appropriate;Follow s Commands [facility] Work Phone: 05-24-2023 Cognitive function Voice/Name [facility] Work Phone: 05-04-2023 Cognitive function Level Of Cons ciousness Awake;Alert;Appropriate [facility] Work Phone: 04-11-2023 Cognitive function Voice/Name [facility] Work Phone: 04-09-2023 Cognitive function Level Of Cons ciousness Awake;Alert;Appropriate;Follow s Commands [facility] Work Phone: 03-22-2023 Cognitive function Level Of Cons ciousness Awake;Alert;Appropriate;Follow s Commands [facility] Work Phone: 01-21-2023 Cognitive function Voice/Name [facility] Work Phone: 11-19-2022 Cognitive function Voice/Name [facility] Work Phone: 09-05-2022 Cognitive function Level Of Cons ciousness Awake;Alert;Appropriate [facility] Work Phone: 02-22-2022 Cognitive function Level Of Cons ciousness Awake;Alert;Appropriate;Follow s Commands;Responds to vocal stimuli [facility] Work Phone: Clinical Notes 07-17-2019 to 04-26-2025 Note Date & Type Note Facility 04-26-2025 Discharge summary [facility] 04-26-2025 Radiology Diagnostic study note [facility] Imaging Services [address], [place] [address] Abdomen/Pelvis W IV Cont ONLY MR#: [id number] Acct: [id number] Name: JOSEPH RINCON Rep #: [id number] : 1975 F 50 From: Jhonny Roger MD PCP: Dr. Abisai Haley MD Status: REG ER Study:Abdomen/Pelvis W IV Cont ONLY Date of E xam: 04/26/25 Exam# [id number] Ordering Dr: Reina Garcia DO PROCEDURE: ABDOMEN/PELVIS W IV CONT ONLY 04/26/2025 REASON FOR EXAM: DIFFUSE PAIN TECHNIQUE: Abdomen and pelvis CT with intravenous contrast. Coronal and Sagittal reconstruction series were provided. PATIENT PREPARATION: Per protocol ORAL CONTRAST TYPE: None. CONTRAST: Isovue-300 VOLUME: 100 mL One or more dose reduction techniques were used (e.g., Automated exposure control, adjustment of the mA and/or kV according to patient size, use of iterative reconstruction technique. RADIATION DOSE SUMMARY: CTDlvol: 11 mGy DLP: 588.06 mGycm COMPARISON: Prior study dated April 04, 2025. FINDINGS: Lung bases: Lung bases are clear. Liver: Diffuse fatty infiltration.. Stable focal geographic focal steatosis along the anterior falciform ligament. Gallbladder: Surgically absent. Spleen: Normal size. Pancreas: Diffuse enlargement of the pancreas with the peripancreatic edematous changes. Increased markings in the surrounding fat. Findings in keeping with acute pancreatitis. Calcifications are seen in the head of the pancreas. Findings in keeping with acute pancreatitis superimposed on chronic pancreatitis. Adrenals: Unremarkable Kidneys: Normal renal sizes. No hydronephrosis. Bladder: Unremarkable Reproductive Organs: Small right ovarian follicles. Bowel: Colonic diverticulosis without diverticulitis. Appendix: The appendix is not identified. There is no inflammatory process identified in the right lower quadrant to suggest appendicitis. Lymph nodes: Unremarkable. Vasculature: Mild diffuse atherosclerotic calcifications are noted. Peritoneum / Retroperitoneum: No free fluid. Bones: Degenerative changes of the spine. CT/Abdomen/Pelvis W IV Cont ONLY IMPRESSION: Findings in keeping with acute pancreatitis superimposed on chronic pancreatitis. Diffuse fatty infiltration of the liver. Reading Location: [id number] CC: Dr. Abisai Haley MD; Dr. Humphrey Garcia DO ~ Sericulture Teacher: Signed [facility] 04-26-2025 Discharge summary Note Date/Time April 26, 2025 4:45pm [facility] Medical Records Department [address] [place] [address] Emergency Department Summary 04/26/25 MR#: [id number] Acct: [id number] Name: JOSEPH RINCON Rep #:[id number] : 1975 50 From: Humphrey Garcia DO PCP: Dr. Abisai Haley MD Status:REG ER Location: ED HPI History of Present Illness Chief Complaint: Abd Pain Narrative Narrative: Patient is a 42-year-old female with past medical history of alcohol abuse but states that she has not ank since November, COPD, seizures, MOUNIKA, type 2 diabetes, hypertension who presents to the emergency department chief complaint abdominal pain, nausea, vomiting, diarrhea. Patient states that she has been sick for approximately 4 days now and states that she cannot keep anything down. She states that since her symptoms were not improving she came here for furtherevaluation management. Patient denies any previous abdominal surgery she statesthat she is passing gas and has normal colored stool. Patient denies any recentcontacts [facility] Medical History Strain of left foot Plantar fasciitis of left foot Acute otitis media, right Contact with or exposure to other viral diseases URI (upper respiratory infection) Alcohol abuse GERD (gastroesophageal reflux disease) CPAP (continuous positive airway pressure) dependence Smoker COPD (chronic obstructive pulmonary disease) Myocardial infarct Seizures History of left heart catheterization (LHC) (~11/19/22) Sleep apnea Pancreatitis Acute lumbar myofascial strain Strain of left hip Depression Anxiety Diabetes HTN (hypertension) Type 2 diabetes mellitus Home Medications ?Medication ?Instructions ?Recorded ?Last Taken ?Type metformin 500 mg tablet 500 ea PO BID DIABETES 10/3111/17/22 21:30 History aspirin 81 mg chewable tablet 81 mg PO DAILY@0800 #30 tabs 11/19/22 Unknown Rx bupropion HCl 150 mg 24 hr tablet, 150 mg PO DAILY Unknown History extended release budesonide-formoterol HFA 80 1 puff inhalation BID 11/20 Unknown History mcg-4.5 mcg/actuation aerosol inhaler (Symbicort) montelukast 10 mg tablet 10 mg PO DAILY 04/09/23 Unkn own History (Singulair) pantoprazole 40 mg tablet,delayed 40 mg PO BID 3 Unknown History release cholecalciferol (vitamin D3) 50 50 mcg PO DAILY Unknown History mcg (2,000 unit) capsule magnesium 250 mg tablet 250 mg PO DAILY 08/25/23 Unk nown History omega-3 fatty acids 1,000 mg 1,000 mg PO DAILY 3 Unknown History capsule albuterol sulfate 90 mcg/actuation 2 puff inhalation Q 6H PRN 04/27/24 Unknown Rx aerosol inhaler shortness of breath or wheez ing #8.5 grams empagliflozin 25 mg tablet 25 mg PO DAILY 11/12/24 Unk nown History (Jardiance) metoprolol succinate 25 mg 25 mg PO DAILY 11/12/24 Unk nown History tablet,extended release 24 hr amlodipine 5 mg tablet 5 mg PO DAILY 04/04/25 Unkno wn History buspirone 5 mg tablet 5 mg PO TID 04/04/25 Unknown History hydroxyzine HCl 10 mg tablet 10 mg PO TID PRN PRN anxi ety 04/04/25 Unknown History ondansetron 4 mg disintegrating 4 mg PO Q8H PRN PRN Na usea #14 tabs 04/04/25 Unknown Rx tablet citalopram 40 mg tablet 40 mg PO DAILY 04/11/25 Unkn own History levocetirizine 5 mg tablet 5 mg PO DAILY 04/11/25 Unkn own History lisinopril 40 mg tablet 40 mg PO DAILY 04/11/25 Unkn own History atorvastatin 40 mg tablet 40 mg PO DAILY #30 tabs 03/29 08/23 Unknown Rx budesonide-formoterol HFA 160 2 puff inhalation BID Unknown History mcg-4.5 mcg/actuation aerosol inhaler Allergy/AdvReac Type Severity Reaction Status Date / Time No Known Allergies Allergy Verified 04/26/25 13:44 Family History Grandfather CVA (cerebral vascular accident) Diabetes Mother Cancer Father Hypertension Grandmother Hypertension Diabetes Surgical History History of cholecystectomy H/O tooth extraction plantar fasciitis release Social History household members: spouse and children housing: house pets and animals: Yes Smoking Status: Light Smoker (<10/day) alcohol intake: current alcohol intake frequency: a few times a month Alcohol type: hard liquor substance use type: does not use ROS ROS ED ROS Narrative Constitutional: Denies any fevers, chills, headaches Cardiovascular: Denies chest pain Respiratory: Denies shortness of breath Abdomen: Complains of abdominal pain nausea vomiting diarrhea as noted above : Denies urinary symptoms Neurological: Denies numbness, weakness, tingling Musculoskeletal: States that her abdominal pain radiates to her back Skin: Denies any rashes or lesions EXAM Physical Exam Narrative Exam Narrative: General: Patient lying in bed did appear to be uncomfortable secondary to her abdominal pain Head: Atraumatic, normocephalic Eyes: PERRL bilaterally, EOMI bilaterally, no conjunctival injection noted Neck: Soft, supple, trachea midline Cardiovascular: Regular rate and rhythm Respiratory: Clear to auscultation bilaterally Abdomen: Soft, nondistended, diffuse tenderness to palpation no rebound or guarding on exam Extremities: +5/5 strength noted in the bilateral upper and lower extremities, no pedal edema no exam Neurological: Patient following commands knew that she was at [facility] the year is 2024 Skin: Warm, dry, intact no rashes or lesions noted Const Vital Signs: 04/26/25 13:42 04/26/25 15:41 04/26/25 15:52 Temperature 97.8 F Temperature Source Oral Pulse Rate 81 80 82 Respiratory Rate 16 16 20 H Blood Pressure 143/77 H 173/80 H 194/86 H Blood Pressure Mean 99 111 122 Blood Pressure Source Monitor Blood Pressure Position Semi-Fowlers Blood Pressure Location Right Arm Pulse Ox 94 99 97 Oxygen Delivery Method Room Air Room Air Room Air 04/26/25 16:19 Temperature 98.1 F Temperature Source Pulse Rate 79 Respiratory Rate 19 H Blood Pressure 194/86 H Blood Pressure Mean 122 Blood Pressure Source Blood Pressure Position Blood Pressure Location Pulse Ox 97 Oxygen Delivery Method MDM MDM MDM Narrative Medical decision making narrative: Patient is a 42-year-old female who presented to the emergency department chief complaint abdominal pain. On the differential diagnosis includes but not limited to pancreatitis, cholecystitis, bowel obstruction, viral gastroenteritis, appendicitis, diverticulitis. Once workup is obtained and reviewed she will be reevaluated. Patient be given IV fluids, Zofran, Bentyl. Patient CBC reviewed and showed no evidence leukocytosis white blood count normal 10.4, hemoglobin is 14.8, plate count 3175. Patient's sodium was noted be 139, patient was hypokalemic with potassium of 2.8 she will be given 40 mill colons orally and 40 mill equivalents IV, anion gap of 36, creatinine was 0.70. Patient's AST and ALT are 127 and 62 respectively. Patient lipase is pending. Patient's CT abdomen pelvis with IV contrast was reviewed which showed findings consistent with acute pancreatitis superimposed on chronic pancreatitis diffuse fatty infiltration of the liver. Patient was still vomiting and she was given 5 mg of IV Reglan. Reevaluation patient she is still nauseous will be given another 5 mg of Reglan. We will check a alcohol level as nurse staff notified me recently she was here with a high alcohol level despite her saying that she has not drank since November. Her anion gap could be secondary to alcohol use will also put her on CIWA protocol. This point time will discuss case with hospitalist for admission for intractableabdominal pain nausea vomiting the setting of acute pancreatitis. Discussed case with hospitalist Dr. Moncada who accept patient for admission. Patient was notified is agreeable spinal course concerns answered. Lab Data Labs: Laboratory Results - last 24 hr 04/26/25 04/26/25 04/26/25 14:22 16:05 16:12 WBC 10.4 RBC 4.09 L Hgb 14.8 Hct 42.8 MCV 104.6 H MCH 36.2 H MCHC 34.6 RDW Std Deviation 49.4 H RDW Coeff of Braxton 12.8 Plt Count 175 MPV 10.0 Immature Gran % (Auto) 0.700 Neut % (Auto) 84.6 H Lymph % (Auto) 7.3 L [place] % (Auto) 7.0 Eos % (Auto) 0.0 Baso % (Auto) 0.4 Absolute Neuts (auto) 8.8 H Absolute Lymphs (auto) 0.76 L Nucleated RBC % 0.2 Sodium 139 Potassium 2.8 L Chloride 87 L Carbon Dioxide 16.4 L Anion Gap 36 H BUN 8 Creatinine 0.70 Estim Creat Clear Calc 84.87 Est GFR (MDRD) Non-Af 107 BUN/Creatinine Ratio 11.2 Glucose 156 H Calcium 8.9 Total Bilirubin 1.42 H AST 127 H ALT 62 H Alkaline Phosphatase 122 H Total Protein 7.7 Albumin 4.5 Globulin 3.2 Albumin/Globulin Ratio 1.4 Lipase 1045 H Urine Color Yellow Urine Clarity Clear Urine pH 6.0 Ur Specific [place] 1.010 Urine Protein 30 H Urine Glucose (UA) 1000 H Urine Ketones 150 A* Urine Occult Blood 10 H Urine Nitrite Negative Urine Bilirubin Negative Urine Urobilinogen 1 H Ur Leukocyte Esterase Negative Ethyl Alcohol < 10.1 Radiography Diagnostic Testing: Clinical Impression(s) from Imaging Studies Abdomen/Pelvis CT 04/26/25 14:17 IMPRESSION: Findings in keeping with acute pancreatitis superimposed on chronic pancreatitis. Diffuse fatty infiltration of the liver. Reading Location: [id number] Discharge Plan Triage Chief Complaint: Abd Pain ED Provider: Humphrey Garcia Dx/Rx/DC Orders Clinical Impression: Intractable abdominal pain, Nausea & vomiting, Hypokalemia, Pancreatitis Prescriptions: No Action metformin 500 mg tablet 500 ea PO BID magnesium 250 mg tablet 250 mg PO DAILY cholecalciferol (vitamin D3) 50 mcg (2,000 unit) capsule 50 mcg PO DAILY omega-3 fatty acids 1,000 mg capsule 1,000 mg PO DAILY albuterol sulfate 90 mcg/actuation HFA aerosol inhaler 2 puff inhalation Q6H PRN (Reason: shortness of breath or wheezing) Qty: 8.5 0RF aspirin 81 mg Tablet,Chewable 81 mg PO DAILY@0800 Qty: 30 0RF bupropion HCl 150 mg tablet extended release 24 hr 150 mg PO DAILY Patient Comments: take 1 tablet by mouth once daily montelukast [Singulair] 10 mg Tablet 10 mg PO DAILY budesonide-formoterol [Symbicort] 80-4.5 mcg/actuation Hfa Aerosol Inhaler 1 puff INHALATION BID pantoprazole 40 mg tablet,delayed release (DR/EC) 40 mg PO BID citalopram 40 mg tablet 40 mg PO DAILY lisinopril 40 mg tablet 40 mg PO DAILY levocetirizine 5 mg tablet 5 mg PO DAILY metoprolol succinate 25 mg tablet extended release 24 hr 25 mg PO DAILY Jardiance 25 mg tablet 25 mg PO DAILY buspirone 5 mg tablet 5 mg PO TID amlodipine 5 mg tablet 5 mg PO DAILY hydroxyzine HCl 10 mg tablet 10 mg PO TID PRN PRN (Reason: anxiety) ondansetron 4 mg tablet,disintegrating 4 mg PO Q8H PRN PRN (Reason: Nausea) Qty: 14 0RF budesonide-formoterol 160-4.5 mcg/actuation HFA aerosol inhaler 2 puff INHALATION BID atorvastatin 40 mg tablet 40 mg PO DAILY Qty: 30 6RF Primary Care Provider: Abisai Haley Referrals: Abisai Haley MD [Primary Care Provider] - Print Language: Tuvaluan Disposition Disposition: Acute Care Hospital [facility] What to do if you have Problems For any increased pain, shortness of breath, bleeding, nausea or vomiting, chestpain, or any unexpected problems, contact your Primary Care Provider. Call [facility] ([phone]) or report to the closest Emergency Room. Call 911 if necessary. 04/26/25 1645 <Electronically signed by Humphrey Garcia DO> Cosigner Signature (if applicable): CC: Dr. Abisai Haley MD ~ Signed [facility] Work Phone: 1(257) 595-739005-29-2025 Evaluation note* Diagnosis Onset Date Resolution Status Admit Date Hypokalemia acute April 26 5:13pm Intractable abdominal pain acute April 26, 2025 5:13pm Nausea & vomiting acute March 5:13pm Pancreatitis acute April 26 5:13pm [facility] Work Phone: [phone]) 777-745205-15-2025 Hospital Discharge instructions Additional Instructions Plenty of fluids and rest. Sleep on the main floor tonight. Due to fall risk. No driving for the next 24 hours. Use your Protonix at home for stomach discomfort due to the alcohol. Follow-up with your doctor if not improving or return if worse.[facility] Work Phone: 1(966) 930-773305-14-2025 Radiology Diagnostic study note [facility] Imaging Services [address], [place] [id number] Chest PA and Lateral MR#: [id number] Acct: [id number] Name: JOSEPH RINCON Rep #: [id number] : 1975 F 50 From: Jacque Martinez MD PCP: Dr. Abisai Haley MD Status: REG ER Study:Chest PA and Lateral Date of Exam: 04/11/25 Exam# [id number] Ordering Dr: Sheron Colon MD PROCEDURE: CHEST PA AND LATERAL 04/11/2025 REASON FOR EXAM: CHEST PAIN TECHNIQUE: Frontal and lateral views of the chest. COMPARISON: 04/04/2025 FINDINGS: Hardware: None Heart: The heart size is normal. Mediastinum: The mediastinal contour is unremarkable. Lungs: The lungs are clear. Bones: The bones are unremarkable. RAD/Chest PA and Lateral IMPRESSION: NO ACUTE FINDINGS. Reading [facility] CC: Dr. Abisai Haley MD; Dr. Francisco Colon MD ~ Sericulture Teacher: Signed [facility]05-07-2025 Discharge summary [facility] Medical Records Department [address] [place] [address] Emergency Department Summary 04/04/25 MR#: [id number] Acct: [id number] Name: JOSEPH RINCON Rep #:[id number] : 1975 50 From: Imani Ruelas PCP: Dr. Abisai Haley MD Status:REG ER Location: ED HPI History of Present Illness Chief Complaint: Palpitations Informant: patient Narrative Narrative: Patient is a 50-year-old female with history of of ACS, NSTEMI, pancreatitis, hypertension, anxiety, COPD presenting with nausea, vomiting, epigastric abdominal pain and palpitations. Patient states was her birthday yesterday. She notes she had a little to drink. She woke up at 330 this morning andhad nausea and multiple signs of vomiting. She states she has from 7 times. She did have a bowel movement this morning which she describes as regular. She denies any blood in her vomit or her stool. No she felt okay yesterday. Statestoday she feels funny. She states that her hands and feet are feltslightly tingly. She took her blood pressure and was elevated at 197/108. She took her morning medications but then drove about 30 minutes later so she is not sure howmuch but she kept down. She describes the pain in her epigastric region and hasburst of pain. Denies any fever but has had intermittent hot flashes and then chills/sweats. [facility] Medical History Strain of left foot Plantar fasciitis of left foot Acute otitis media, right Contact with or exposure to other viral diseases URI (upper respiratory infection) Alcohol abuse GERD (gastroesophageal reflux disease) CPAP (continuous positive airway pressure) dependence Smoker COPD (chronic obstructive pulmonary disease) Myocardial infarct Seizures History of left heart catheterization (LHC) (~11/19/22) Sleep apnea Pancreatitis Acute lumbar myofascial strain Strain of left hip Depression Anxiety Diabetes HTN (hypertension) Type 2 diabetes mellitus Home Medications ?Medication ?Instructions ?Recorded ?Last Taken ?Type metformin 500 mg tablet 500 ea PO BID DIABETES 10/3111/17/22 21:30 History aspirin 81 mg chewable tablet 81 mg PO DAILY@0800 #30 tabs 11/19/22 Unknown Rx bupropion HCl 150 mg 24 hr tablet, 150 mg PO DAILY Unknown History extended release citalopram 20 mg tablet 20 mg PO DAILY 03/22/23 Unkn own History budesonide-formoterol HFA 80 1 puff inhalation BID 11/20 Unknown History mcg-4.5 mcg/actuation aerosol inhaler (Symbicort) montelukast 10 mg tablet 10 mg PO DAILY 04/09/23 Unkn own History (Singulair) pantoprazole 40 mg tablet,delayed 40 mg PO BID 3 Unknown History release cholecalciferol (vitamin D3) 50 50 mcg PO DAILY Unknown History mcg (2,000 unit) capsule magnesium 250 mg tablet 250 mg PO DAILY 08/25/23 Unk nown History omega-3 fatty acids 1,000 mg 1,000 mg PO DAILY 3 Unknown History capsule phenazopyridine 95 mg tablet 95 mg PO BID 08/25/23 Unk nown History atorvastatin 40 mg tablet 40 mg PO DAILY #30 tabs 03/30 12/22 Unknown Rx albuterol sulfate 90 mcg/actuation 2 puff inhalation Q 6H PRN 04/27/24 Unknown Rx aerosol inhaler shortness of breath or wheez ing #8.5 grams empagliflozin 25 mg tablet 25 mg PO DAILY 11/12/24 Unk nown History (Jardiance) metoprolol succinate 25 mg 25 mg PO DAILY 11/12/24 Unk nown History tablet,extended release 24 hr lisinopril 20 mg tablet 20 mg PO DAILY BLOOD PRESSUR E #30 02/26/25 Unknown Rx tabs amlodipine 5 mg tablet 5 mg PO DAILY 04/04/25 Unkno wn History buspirone 5 mg tablet 5 mg PO TID 04/04/25 Unknown History hydroxyzine HCl 10 mg tablet 10 mg PO TID PRN PRN anxi ety 04/04/25 Unknown History magnesium 250 mg tablet 250 mg PO BID 2 weeks #28 ta bs 04/04/25 Unknown Rx ondansetron 4 mg disintegrating 4 mg PO Q8H PRN PRN Na usea #14 tabs 04/04/25 Unknown Rx tablet potassium chloride 20 mEq oral 20 meq PO DAILY 5 days #5 ea 04/04/25 Unknown Rx packet Allergy/AdvReac Type Severity Reaction Status Date / Time No Known Allergies Allergy Verified 04/04/25 10:24 Family History Grandfather CVA (cerebral vascular accident) Diabetes Mother Cancer Father Hypertension Grandmother Hypertension Diabetes Surgical History History of cholecystectomy H/O tooth extraction plantar fasciitis release Social History household members: spouse and children housing: house pets and animals: Yes Smoking Status: Current some day smoker tobacco type: cigarettes alcohol intake: current alcohol intake frequency: a few times a month Alcohol type: hard liquor substance use type: does not use ROS ROS ED Constitutional Constitutional ED: Reports chills and sweats Cardiovascular Cardiovascular: Reports palpitations; Denies chest pain Respiratory/Chest Respiratory/Chest: Denies cough or dyspnea Gastrointestinal Gastrointestinal: Reports abdominal pain, nausea and vomiting Musculoskeletal Musculoskeletal: Denies arthralgias or myalgias Neurologic Neurologic: Reports weakness and other Details: shaky feeling Psychiatric Psychiatric: Reports anxiety Hematologic/Lymphatic Hematologic/Lymphatic: Denies easy bleeding or easy bruising EXAM Physical Exam Const Vital Signs: 04/04/25 10:24 04/04/25 10:24 04/04/25 13:11 Temperature 97.1 F L 98.4 F Temperature Source Temporal Oral Pulse Rate 138 H 105 H Respiratory Rate 22 H 14 Blood Pressure 206/101 H 181/104 H 164/103 H Blood Pressure Mean 136 129 123 Pulse Ox 96 96 Oxygen Delivery Method Room Air Room Air 04/04/25 14:32 Temperature Temperature Source Pulse Rate 99 Respiratory Rate 18 Blood Pressure 171/112 H Blood Pressure Mean 131 Pulse Ox 93 Oxygen Delivery Method Room Air Positive well nourished and well developed General Appearance ED: well developed and NAD HEENT Reports dry mucous membranes Mouth ED: Yes dry mucous membranes Mouth: dry mucous membranes Eyes General Eye ED: Negative for scleral icterus Neck supple Chest Wall inspection of chest normal Resp normal respiratory effort and clear to auscultation bilaterally Cardio regular rhythm and no murmurs Rate: tachycardic GI Auscultation: normoactive bowel sounds Palpation: soft and tender epigastric; Negative for guarding Back/Spine no CVA tenderness Extremity normal to inspection General Extremety ED: Negative for edema General Extremity: Negative for edema Neuro oriented x3 Sensorium / Orientation: alert Psych Mood & Affect: anxious and tearful Skin no rashes or lesions noted and no wounds MDM MDM MDM Narrative Medical decision making narrative: Patient is a 50-year-old female with significant cardiac history as well as remote history of pancreatitis and some continued alcohol use presenting with nausea, vomiting and epigastric abdominal pain. She also is complaining of palpitations which was her main complaint when she arrived to the emergency room. When I spoke with her she mainly talked about her GI symptoms. Given her cardiac history will obtain abdominal and cardiac workup. Differential includes ACS, symptomatic anemia, LUI, electrolyte abnormality, pancreatitis, bowel obstruction, choledocholithiasis and obstruction. CBC, CMP, lipase, delta high-sensitivity troponin were obtained. Patient is given IV fluids, morphine and Zofran for symptom control. Patient has a normal CBC. Her CMP shows an elevated anion gap of 18 likely consistent with some mild dehydration. Her potassium is low at 2.9 and her magnesium is significantly low at 0.6 (this is added on after potassium was found to be low). Patient is given 4 mg IV magnesium in the emergency room as well as oral potassium replacement. She tolerates this. Her cardiac workup is largely normal with normal high-sensitivity troponins and no acute ischemic changes on her EKG. Chest x-ray viewed by myself as well as radiology does not show any acute process. CT abdomen pelvis colitis with minimal small bowel ileus no other acute process. Her bilirubin is largely normal I do not suspect there is any acute obstructiveprocess. She does have a mild transaminitis (AST 75 and ALT of 44) but I suspect this is associate with alcohol use. Patient is reevaluated. She is having improvement of symptoms. Is given additional dose of morphineand second liter of IV fluids. She is able to tolerate p.o. We discharged home with prescription for Zofran, potassium and magnesium. Encouraged follow-up with GI. Given return precautions. Discharged home in stable condition. Given return precautions to the emergency room. Lab Data Attestation: I reviewed the patient's lab results. Labs: Laboratory Results - last 24 hr 04/04/25 04/04/25 11:06 13:30 WBC 8.8 RBC 4.04 L Hgb 14.3 Hct 40.3 MCV 99.8 H MCH 35.4 H MCHC 35.5 RDW Std Deviation 50.3 H RDW Coeff of Braxton 13.5 Plt Count 186 MPV 10.0 Immature Gran % (Auto) 0.300 Neut % (Auto) 77.0 H Lymph % (Auto) 14.0 L [place] % (Auto) 7.8 Eos % (Auto) 0.2 Baso % (Auto) 0.7 Absolute Neuts (auto) 6.8 Absolute Lymphs (auto) 1.23 Nucleated RBC % 0.2 Sodium 139 Potassium 2.9 L Chloride 94 L Carbon Dioxide 27.3 Anion Gap 18 H BUN 5 Creatinine 0.55 L Est GFR (MDRD) Non-Af 113 BUN/Creatinine Ratio 8.7 L Glucose 131 H Calcium 8.4 Magnesium 0.6 L* Total Bilirubin 1.26 Direct Bilirubin 0.67 H AST 75 H ALT 44 H Alkaline Phosphatase 91 Troponin T High Sens < 6 Troponin T Hi Sens 2 Hr < 6 Total Protein 7.3 Albumin 4.1 Globulin 3.3 Lipase 26 Radiography Diagnostic Testing: Clinical Impression(s) from Imaging Studies Chest X-Ray 04/04/25 11:55 IMPRESSION: Lungs appear clear throughout. No pleural effusion or pneumothorax is seen. The cardiomediastinal silhouette is stable, without evidence of cardiomegaly. No acute osseous process is seen. Negative examination. Reading [facility] Ab[facility]en/Pelvis CT 04/04/25 12:02 IMPRESSION: 1. Correlate for minimal small bowel ileus. 2. Findings in the RIGHT middle lobe which may reflect mild pneumonia. Given nodular appearance, recommend CT chest in 3 months to document resolution. 3. Diffuse hepatic hypoattenuation is new from prior, typically indicating steatosis. Correlate forclinical and laboratory evidence of chronic liver disease as well as hepatitis which could conceivably appear similarly. 4. Additional description as above. Reading Location: [facility] Rhythm Strip Rhythm Strip: Sinus Tach Rate: 119 Ectopy: None EKG Initial EKG: Attestation: I personally reviewed and interpreted this EKG as follows: Interpretation: Sinus Tachycardia Comments: Sinus tachycardia rate of 119 bpm Normal axis Normal intervals Grossly normal ST segments with subtle depression in 2, 3 and aVF Compared to prior EKG on 11/12/2024 patient is now tachycardic with subtle ST segment changes Discharge Plan Triage Chief Complaint: Palpitations ED Provider: Imani Knight Dx/Rx/DC Orders Clinical Impression: Nausea and vomiting, Epigastric abdominal pain, Hypokalemia, Hypomagnesemia Instructions: Hypomagnesemia Dc, ED Hypokalemia, ED Epigastric Pain Uncertain Cause Prescriptions: New ondansetron 4 mg tablet,disintegrating 4 mg PO Q8H PRN PRN (Reason: Nausea) Qty: 14 0RF potassium chloride 20 mEq packet 20 meq PO DAILY 5 Days Qty: 5 0RF magnesium 250 mg tablet 250 mg PO BID 14 Days Qty: 28 0RF No Action metformin 500 mg tablet 500 ea PO BID magnesium 250 mg tablet 250 mg PO DAILY phenazopyridine 95 mg tablet 95 mg PO BID cholecalciferol (vitamin D3) 50 mcg (2,000 unit) capsule 50 mcg PO DAILY omega-3 fatty acids 1,000 mg capsule 1,000 mg PO DAILY albuterol sulfate 90 mcg/actuation HFA aerosol inhaler 2 puff inhalation Q6H PRN (Reason: shortness of breath or wheezing) Qty: 8.5 0RF aspirin 81 mg Tablet,Chewable 81 mg PO DAILY@0800 Qty: 30 0RF bupropion HCl 150 mg tablet extended release 24 hr 150 mg PO DAILY Patient Comments: take 1 tablet by mouth once daily citalopram 20 mg tablet 20 mg PO DAILY Patient Comments: take 1 tablet by mouth once daily montelukast [Singulair] 10 mg Tablet 10 mg PO DAILY budesonide-formoterol [Symbicort] 80-4.5 mcg/actuation Hfa Aerosol Inhaler 1 puff INHALATION BID pantoprazole 40 mg tablet,delayed release (DR/EC) 40 mg PO BID metoprolol succinate 25 mg tablet extended release 24 hr 25 mg PO DAILY Jardiance 25 mg tablet 25 mg PO DAILY buspirone 5 mg tablet 5 mg PO TID amlodipine 5 mg tablet 5 mg PO DAILY hydroxyzine HCl 10 mg tablet 10 mg PO TID PRN PRN (Reason: anxiety) atorvastatin 40 mg tablet 40 mg PO DAILY Qty: 30 6RF lisinopril 20 mg tablet 20 mg PO DAILY Qty: 30 11RF Primary Care Provider: Abisai Haley Referrals: Abisai Haley MD [Primary Care Provider] - Friend,DO Frank [Med Staff - Active Staff] - Print Language: Tuvaluan Disposition Disposition: Home, Self Care What to do if you have Problems For any increased pain, shortness of breath, bleeding, nausea or vomiting, chestpain, or any unexpected problems, contact your Primary Care Provider. Call [facility] ([phone]) or report tothe closest Emergency Room. Call 911 if necessary. 04/04/25 1607 Cosigner Signature (if applicable): CC: Dr. Abisai Haley MD ~ Signed [facility]05-07-2025 Discharge summary Author [place] Note Date/Time April 04, 2025 4:07pm [facility] Medical Records Department [address] [place] [id number] Emergency Department Summary 04/04/25 MR#: [id number] Acct: [id number] Name: JOSEPH RINCON Rep #:[id number] : 1975 50 From: Imani Ruelas PCP: Dr. Abisai Haley MD Status:REG ER Location: ED HPI History of Present Illness Chief Complaint: Palpitations Informant: patient Narrative Narrative: Patient is a 50-year-old female with history of of ACS, NSTEMI, pancreatitis, hypertension, anxiety, COPD presenting with nausea, vomiting, epigastric abdominal pain and palpitations. Patient states was her birthday yesterday. She notes she had a little to drink. She woke up at 330 this morning and had nausea and multiple signs of vomiting. She states she has from 7 times. She did have a bowel movement this morning which she describes as regular. She denies any blood in her vomit or her stool. No she felt okay yesterday. Statestoday she feels funny. She states that her hands and feet are felt slightly tingly. She took her blood pressure and was elevated at 197/108. She took her morning medications but then drove about 30 minutes later so she is not sure howmuch but she kept down. She describes the pain in her epigastric region and hasburst of pain. Denies any fever but has had intermittent hot flashes and then chills/sweats. [facility] Medical History Strain of left foot Plantar fasciitis of left foot Acute otitis media, right Contact with or exposure to other viral diseases URI (upper respiratory infection) Alcohol abuse GERD (gastroesophageal reflux disease) CPAP (continuous positive airway pressure) dependence Smoker COPD (chronic obstructive pulmonary disease) Myocardial infarct Seizures History of left heart catheterization (LHC) (~11/19/22) Sleep apnea Pancreatitis Acute lumbar myofascial strain Strain of left hip Depression Anxiety Diabetes HTN (hypertension) Type 2 diabetes mellitus Home Medications ?Medication ?Instructions ?Recorded ?Last Taken ?Type metformin 500 mg tablet 500 ea PO BID DIABETES 10/3111/17/22 21:30 History aspirin 81 mg chewable tablet 81 mg PO DAILY@0800 #30 tabs 11/19/22 Unknown Rx bupropion HCl 150 mg 24 hr tablet, 150 mg PO DAILY Unknown History extended release citalopram 20 mg tablet 20 mg PO DAILY 03/22/23 Unkn own History budesonide-formoterol HFA 80 1 puff inhalation BID 11/20 Unknown History mcg-4.5 mcg/actuation aerosol inhaler (Symbicort) montelukast 10 mg tablet 10 mg PO DAILY 04/09/23 Unkn own History (Singulair) pantoprazole 40 mg tablet,delayed 40 mg PO BID 3 Unknown History release cholecalciferol (vitamin D3) 50 50 mcg PO DAILY Unknown History mcg (2,000 unit) capsule magnesium 250 mg tablet 250 mg PO DAILY 08/25/23 Unk nown History omega-3 fatty acids 1,000 mg 1,000 mg PO DAILY 3 Unknown History capsule phenazopyridine 95 mg tablet 95 mg PO BID 08/25/23 Unk nown History atorvastatin 40 mg tablet 40 mg PO DAILY #30 tabs 03/30 12/22 Unknown Rx albuterol sulfate 90 mcg/actuation 2 puff inhalation Q 6H PRN 04/27/24 Unknown Rx aerosol inhaler shortness of breath or wheez ing #8.5 grams empagliflozin 25 mg tablet 25 mg PO DAILY 11/12/24 Unk nown History (Jardiance) metoprolol succinate 25 mg 25 mg PO DAILY 11/12/24 Unk nown History tablet,extended release 24 hr lisinopril 20 mg tablet 20 mg PO DAILY BLOOD PRESSUR E #30 02/26/25 Unknown Rx tabs amlodipine 5 mg tablet 5 mg PO DAILY 04/04/25 Unkno wn History buspirone 5 mg tablet 5 mg PO TID 04/04/25 Unknown History hydroxyzine HCl 10 mg tablet 10 mg PO TID PRN PRN anxi ety 04/04/25 Unknown History magnesium 250 mg tablet 250 mg PO BID 2 weeks #28 ta bs 04/04/25 Unknown Rx ondansetron 4 mg disintegrating 4 mg PO Q8H PRN PRN Na usea #14 tabs 04/04/25 Unknown Rx tablet potassium chloride 20 mEq oral 20 meq PO DAILY 5 days #5 ea 04/04/25 Unknown Rx packet Allergy/AdvReac Type Severity Reaction Status Date / Time No Known Allergies Allergy Verified 04/04/25 10:24 Family History Grandfather CVA (cerebral vascular accident) Diabetes Mother Cancer Father Hypertension Grandmother Hypertension Diabetes Surgical History History of cholecystectomy H/O tooth extraction plantar fasciitis release Social History household members: spouse and children housing: house pets and animals: Yes Smoking Status: Current some day smoker tobacco type: cigarettes alcohol intake: current alcohol intake frequency: a few times a month Alcohol type: hard liquor substance use type: does not use ROS ROS ED Constitutional Constitutional ED: Reports chills and sweats Cardiovascular Cardiovascular: Reports palpitations; Denies chest pain Respiratory/Chest Respiratory/Chest: Denies cough or dyspnea Gastrointestinal Gastrointestinal: Reports abdominal pain, nausea and vomiting Musculoskeletal Musculoskeletal: Denies arthralgias or myalgias Neurologic Neurologic: Reports weakness and other Details: shaky feeling Psychiatric Psychiatric: Reports anxiety Hematologic/Lymphatic Hematologic/Lymphatic: Denies easy bleeding or easy bruising EXAM Physical Exam Const Vital Signs: 04/04/25 10:24 04/04/25 10:24 04/04/25 13:11 Temperature 97.1 F L 98.4 F Temperature Source Temporal Oral Pulse Rate 138 H 105 H Respiratory Rate 22 H 14 Blood Pressure 206/101 H 181/104 H 164/103 H Blood Pressure Mean 136 129 123 Pulse Ox 96 96 Oxygen Delivery Method Room Air Room Air 04/04/25 14:32 Temperature Temperature Source Pulse Rate 99 Respiratory Rate 18 Blood Pressure 171/112 H Blood Pressure Mean 131 Pulse Ox 93 Oxygen Delivery Method Room Air Positive well nourished and well developed General Appearance ED: well developed and NAD HEENT Reports dry mucous membranes Mouth ED: Yes dry mucous membranes Mouth: dry mucous membranes Eyes General Eye ED: Negative for scleral icterus Neck supple Chest Wall inspection of chest normal Resp normal respiratory effort and clear to auscultation bilaterally Cardio regular rhythm and no murmurs Rate: tachycardic GI Auscultation: normoactive bowel sounds Palpation: soft and tender epigastric; Negative for guarding Back/Spine no CVA tenderness Extremity normal to inspection General Extremety ED: Negative for edema General Extremity: Negative for edema Neuro oriented x3 Sensorium / Orientation: alert Psych Mood & Affect: anxious and tearful Skin no rashes or lesions noted and no wounds MDM MDM MDM Narrative Medical decision making narrative: Patient is a 50-year-old female with significant cardiac history as well as remote history of pancreatitis and some continued alcohol use presenting with nausea, vomiting and epigastric abdominal pain. She also is complaining of palpitations which was her main complaint when she arrived to the emergency room. When I spoke with her she mainly talked about her GI symptoms. Given her cardiac history will obtain abdominal and cardiac workup. Differential includes ACS, symptomatic anemia, LUI, electrolyte abnormality, pancreatitis, bowel obstruction, choledocholithiasis and obstruction. CBC, CMP, lipase, delta high-sensitivity troponin were obtained. Patient is given IV fluids, morphine and Zofran for symptom control. Patient has a normal CBC. Her CMP shows an elevated anion gap of 18 likely consistent with some mild dehydration. Her potassium is low at 2.9 and her magnesium is significantly low at 0.6 (this is added on after potassium was found to be low). Patient is given 4 mg IV magnesium in the emergency room as well as oral potassium replacement. She tolerates this. Her cardiac workup is largely normal with normal high-sensitivity troponins and no acute ischemic changes on her EKG. Chest x-ray viewed by myself as well as radiology does not show any acute process. CT abdomen pelvis colitis with minimal small bowel ileus no other acute process. Her bilirubin is largely normal I do not suspect there is any acute obstructiveprocess. She does have a mild transaminitis (AST 75 and ALT of 44) but I suspect this is associate with alcohol use. Patient is reevaluated. She is having improvement of symptoms. Is given additional dose of morphine and second liter of IV fluids. She is able to tolerate p.o. We discharged home with prescription for Zofran, potassium and magnesium. Encouraged follow-up with GI. Given return precautions. Discharged home in stable condition. Given return precautions to the emergency room. Lab Data Attestation: I reviewed the patient's lab results. Labs: Laboratory Results - last 24 hr 04/04/25 04/04/25 11:06 13:30 WBC 8.8 RBC 4.04 L Hgb 14.3 Hct 40.3 MCV 99.8 H MCH 35.4 H MCHC 35.5 RDW Std Deviation 50.3 H RDW Coeff of Braxton 13.5 Plt Count 186 MPV 10.0 Immature Gran % (Auto) 0.300 Neut % (Auto) 77.0 H Lymph % (Auto) 14.0 L [place] % (Auto) 7.8 Eos % (Auto) 0.2 Baso % (Auto) 0.7 Absolute Neuts (auto) 6.8 Absolute Lymphs (auto) 1.23 Nucleated RBC % 0.2 Sodium 139 Potassium 2.9 L Chloride 94 L Carbon Dioxide 27.3 Anion Gap 18 H BUN 5 Creatinine 0.55 L Est GFR (MDRD) Non-Af 113 BUN/Creatinine Ratio 8.7 L Glucose 131 H Calcium 8.4 Magnesium 0.6 L* Total Bilirubin 1.26 Direct Bilirubin 0.67 H AST 75 H ALT 44 H Alkaline Phosphatase 91 Troponin T High Sens < 6 Troponin T Hi Sens 2 Hr < 6 Total Protein 7.3 Albumin 4.1 Globulin 3.3 Lipase 26 Radiography Diagnostic Testing: Clinical Impression(s) from Imaging Studies Chest X-Ray 04/04/25 11:55 IMPRESSION: Lungs appear clear throughout. No pleural effusion or pneumothorax is seen. The cardiomediastinal silhouette is stable, without evidence of cardiomegaly. No acute osseous process is seen. Negative examination. Reading Location: [facility]1 Abdomen/Pelvis CT 04/04/25 12:02 IMPRESSION: 1. Correlate for minimal small bowel ileus. 2. Findings in the RIGHT middle lobe which may reflect mild pneumonia. Given nodular appearance, recommend CT chest in 3 months to document resolution. 3. Diffuse hepatic hypoattenuation is new from prior, typically indicating steatosis. Correlate for clinical and laboratory evidence of chronic liver disease as well as hepatitis which could conceivably appear similarly. 4. Additional description as above. Reading Location: [facility] Rhythm Strip Rhythm Strip: Sinus Tach Rate: 119 Ectopy: None EKG Initial EKG: Attestation: I personally reviewed and interpreted this EKG as follows: Interpretation: Sinus Tachycardia Comments: Sinus tachycardia rate of 119 bpm Normal axis Normal intervals Grossly normal ST segments with subtle depression in 2, 3 and aVF Compared to prior EKG on 11/12/2024 patient is now tachycardic with subtle ST segment changes Discharge Plan Triage Chief Complaint: Palpitations ED Provider: Imani Knight Dx/Rx/DC Orders Clinical Impression: Nausea and vomiting, Epigastric abdominal pain, Hypokalemia, Hypomagnesemia Instructions: Hypomagnesemia Dc, ED Hypokalemia, ED Epigastric Pain Uncertain Cause Prescriptions: New ondansetron 4 mg tablet,disintegrating 4 mg PO Q8H PRN PRN (Reason: Nausea) Qty: 14 0RF potassium chloride 20 mEq packet 20 meq PO DAILY 5 Days Qty: 5 0RF magnesium 250 mg tablet 250 mg PO BID 14 Days Qty: 28 0RF No Action metformin 500 mg tablet 500 ea PO BID magnesium 250 mg tablet 250 mg PO DAILY phenazopyridine 95 mg tablet 95 mg PO BID cholecalciferol (vitamin D3) 50 mcg (2,000 unit) capsule 50 mcg PO DAILY omega-3 fatty acids 1,000 mg capsule 1,000 mg PO DAILY albuterol sulfate 90 mcg/actuation HFA aerosol inhaler 2 puff inhalation Q6H PRN (Reason: shortness of breath or wheezing) Qty: 8.5 0RF aspirin 81 mg Tablet,Chewable 81 mg PO DAILY@0800 Qty: 30 0RF bupropion HCl 150 mg tablet extended release 24 hr 150 mg PO DAILY Patient Comments: take 1 tablet by mouth once daily citalopram 20 mg tablet 20 mg PO DAILY Patient Comments: take 1 tablet by mouth once daily montelukast [Singulair] 10 mg Tablet 10 mg PO DAILY budesonide-formoterol [Symbicort] 80-4.5 mcg/actuation Hfa Aerosol Inhaler 1 puff INHALATION BID pantoprazole 40 mg tablet,delayed release (DR/EC) 40 mg PO BID metoprolol succinate 25 mg tablet extended release 24 hr 25 mg PO DAILY Jardiance 25 mg tablet 25 mg PO DAILY buspirone 5 mg tablet 5 mg PO TID amlodipine 5 mg tablet 5 mg PO DAILY hydroxyzine HCl 10 mg tablet 10 mg PO TID PRN PRN (Reason: anxiety) atorvastatin 40 mg tablet 40 mg PO DAILY Qty: 30 6RF lisinopril 20 mg tablet 20 mg PO DAILY Qty: 30 11RF Primary Care Provider: Abisai Haley Referrals: Abisai Haley MD [Primary Care Provider] - Frank Coughlin DO [Med Staff - Active Staff] - Print Language: Tuvaluan Disposition Disposition: Home, Self Care What to do if you have Problems For any increased pain, shortness of breath, bleeding, nausea or vomiting, chestpain, or any unexpected problems, contact your Primary Care Provider. Call [facility] ([phone]) or report to the closest Emergency Room. Call 911 if necessary. 04/04/25 6778 <Electronically signed by Imani Knight DO> Cosigner Signature (if applicable): CC: Dr. Abisai Haley MD ~ Signed [facility] Work Phone: [phone]) 564-816905-07-2025 Radiology Diagnostic study note [facility] Imaging Services [address] [place], [place] [address] Abdomen/Pelvis W IV Cont ONLY MR#: [id number] Acct: [id number] Name: JOSEPH RINCON Rep #: [id number] : 1975 F 50 From: Odalis Giraldo MD PCP: Dr. Abisai Haley MD Status: REG ER Study:Abdomen/Pelvis W IV Cont ONLY Date of E xam: 04/04/25 Exam# [id number] Ordering Dr: Selene Knight DO PROCEDURE: ABDOMEN/PELVIS W IV CONT ONLY, 04/04/2025 REASON FOR EXAM: EPIAGSTRIC PAIN, VOMITING TECHNIQUE: CT abdomen and pelvis was performed with IV contrast. Multiplanar reformats weregenerated. IV contrast: Isovue-300 VOLUME: 98mL RADIATION DOSE SUMMARY: CTDlvol: 9.97+ 11.45 mGy DLP: 595.61 mGycm One or more dose reduction techniques were used (e.g., Automated exposure control, adjustment of the mA and/or kV according to patient size, use of iterative reconstruction technique). COMPARISON: 07/11/2024 FINDINGS: Lung bases: Vaguely nodular irregular RIGHT middle lobe airspace disease is new from prior, x 24 mm (series 2, image 11). Liver: Diffuse hepatic hypoattenuation is new from prior. Geographic likely focal steatosis along the anterior falciform. Punctate subcentimeter hypodensity too small to characterize, likely cysts/hemangioma in the absence of known malignancy. Spleen: Unremarkable. Gallbladder: Cholecystectomy similar mild dilatation of the CBD to 8 mm, favoring post cholecystectomy effect. Pancreas: Focal calcifications in the pancreatic head/uncinate process versus a calcified adjacent lymph node as can be seen in chronic granulomatous disease, similar to prior exams dating back to 08/23/2023.. Adrenals: Unremarkable. Kidneys: Unremarkable. Bowel: Focally borderline mildly dilated small bowel loop in the LEFT anterior lower abdomen measures 3.0 cm in diameter tapering proximally and distally. No convincing inflammation... Normal caliber appendix. Lymph nodes: Unremarkable. Vasculature: Moderate atherosclerosis, probably slightly greater than expected for age. Peritoneum: Unremarkable. Bladder: Underdistended and suboptimally evaluated, grossly unremarkable. Reproductive Organs: Unremarkable. Body Wall: Unremarkable. Bones: Unremarkable. CT/Abdomen/Pelvis W IV Cont ONLY IMPRESSION: 1. Correlate for minimal small bowel ileus. 2. Findings in the RIGHT middle lobe which may reflect mild pneumonia. Given nodular appearance, recommend CT chest in 3 months to document resolution. 3. Diffuse hepatic hypoattenuation is new from prior, typically indicating steatosis. Correlate forclinical and laboratory evidence of chronic liver disease as well as hepatitis which could conceivably appear similarly. 4. Additional description as above. Reading Location: [facility] CC: Dr. Abisai Haley MD; Dr. Imani Knight DO ~ Sericulture Teacher: Signed [facility]05-07-2025 Radiology Diagnostic study note [facility] Imaging Services [address] [place] [id number] Chest 1 View (Portable) MR#: [id number] Acct: [id number] Name: JOSEPH RINCON Rep #: [id number] : 1975 F 50 From: Guido Valles MD PCP: Dr. Abisai Haley MD Status: REG ER Study:Chest 1 View (Portable) Date of Exam: 04/04/25 Exam# [id number] Ordering Dr: Selene Knight DO PROCEDURE: CHEST 1 VIEW (PORTABLE) 04/04/2025 REASON FOR EXAM: CHEST PAIN TECHNIQUE: Frontal view of the chest. COMPARISON: Chest x-ray 11/12/2024 RAD/Chest 1 View (Portable) IMPRESSION: Lungs appear clear throughout. No pleural effusion or pneumothorax is seen. The cardiomediastinal silhouette is stable, without evidence of cardiomegaly. No acute osseous process is seen. Negative examination. Reading Location: [place] [address] CC: Dr. Abisai Haley MD; Dr. Imani Knight DO ~ Sericulture Teacher: Signed [facility]05-25-2024 NoteHNO ID: [id number] Author: ARETHA SCHOFIELD APRN.CASHIER CREDIT Service: ? Author Type: Nurse Practitioner Type: [...] woke up this morning and is over it. She denies fever. States she feels nausea [...] drugs Objective Physical Exam (more content not included)...[facility]05-25-2024 Instructions * Patient Instructions* Aretha Schofield APRN.CNP - 04/22/2024 2:02 PM EDT ASSESSMENT/PLAN: 1. [...] Discussed expected course of illness Aretha Schofield APRN.CNP [facility] History of Present illness Narrative* Aretha Schofield APRN.CNP - 04/22/2024 1:56 PM EDT Subjective Sinus Problem Associated symptoms include coughing, nausea and a sore throat. Pertinent negatives include no chills, fever, myalgias or vomiting. Joseph Rincon is a 49 year old female who presents with nasal congestion and post nasal drainage since yesterday. Has also had a cough and some wheezing. She states she woke up this morning and is over it. She denies fever. States she feels nausea [...] mouth once daily. (Patient not taking: Reported on04/22/2024) hydrOXYzine HCl (ATARAX) 25 mg tablet Take [...] right-upper field reveals wheezing. Examination of the left-upperfield reveals wheezing. Wheezing present. No rales. Musculoskeletal: [...] Discussed expected course of illness Aretha Schofield APRN.CASHIER CREDIT documented [facility] Discharge summary Author Caprice Jerry [facility] July 29, 2023 5:41pm Note Date/Time July 29, 2023 2: 37pm [facility] Medical Records Department [address] [place] [address] Emergency Department Summary 07/29/23 MR#: [id number] Acct: [id number] Name: JOSEPH RINCON Rep #:[id number] : 1975 48 From: Caprice Jerry MD PCP: Milana Garcia, Status:REG E R Location: ED HPI History of Present Illness Chief Complaint: Chest Pain Informant: patient Onset/Context/Timing Onset: Today Narrative Narrative: Patient presents with chest pressure along with nausea and vomiting that startedat 11 AM this morning. She does report some diarrhea as well. No fever or chills. She is a chronic cough that is unchanged from baseline. Patient reported did have an NSTEMI in October of last year. She states she had a cardiac cath at that time that did not show any disease. [facility] Medical History Acute lumbar myofascial strain Alcohol abuse Anxiety COPD (chronic obstructive pulmonary disease) CPAP (continuous positive airway pressure) dependence Depression Diabetes GERD (gastroesophageal reflux disease) History of left heart catheterization (LHC) (~11/19/22) HTN (hypertension) Myocardial infarct Pancreatitis Seizures Sleep apnea Smoker Strain of left hip Type 2 diabetes mellitus Home Medications metformin 500 mg tablet 500 ea PO BID DIABETES 10/31/22 [History Last Taken 11/17/22 21:30] aspirin 81 mg chewable tablet 81 mg PO DAILY@0800 #30 tabs 11/19/22 [Rx Last Taken Unknown] bupropion HCl 150 mg 24 hr tablet, extended release 150 mg PO DAILY 01/21/23 [History Last Taken Unknown] empagliflozin 10 mg tablet (Jardiance) 10 mg PO DAILY 01/21/23 [History Last Taken Unknown] albuterol sulfate 90 mcg/actuation aerosol inhaler 2 puff inhalation Q6H PRN shortness of breath or wheezing #8.5 grams 02/12/23 [Rx Last Taken Unknown] citalopram 20 mg tablet 20 mg PO DAILY 03/22/23 [History Last Taken Unknown] budesonide-formoterol HFA 80 mcg-4.5 mcg/actuation aerosol inhaler (Symbicort) 1puff inhalation BID 04/09/23 [History Last Taken Unknown] levocetirizine 5 mg tablet 5 mg PO DAILY 04/09/23 [History Last Taken Unknown] montelukast 10 mg tablet (Singulair) 10 mg PO DAILY 04/09/23 [History Last Taken Unknown] pantoprazole 40 mg tablet,delayed release 40 mg PO BID 05/04/23 [History Last Taken Unknown] metoprolol succinate 50 mg tablet,extended release 24 hr 25 mg PO DAILY BLOOD PRESSURE 05/20/23 [History Last Taken Unknown] dextromethorphan-guaifenesin 10 mg-100 mg/5 mL oral liquid 10 ml PO Q4H PRN cough #500 mL 07/01/23 [Rx Last Taken Unknown] lisinopril 10 mg tablet 5 mg (1/2 x 10 mg) PO DAILY BLOOD PRESSURE #30 tabs 07/23/23 [Rx Last Taken Unknown] ondansetron 4 mg disintegrating tablet 4 mg PO Q8H PRN PRN Nausea #10 tabs 07/29/23 [Rx Last Taken Unknown] oxycodone-acetaminophen 5 mg-325 mg tablet (Percocet) 1 tab PO Q8H PRN pain 3 days #10 tabs 07/29/23 [Rx Last Taken Unknown] Allergy/AdvReac Type Severity Reaction Status Date / Time No Known Allergies Allergy Verified 07/29/23 14:11 Family History Grandfather CVA (cerebral vascular accident) Diabetes Mother Cancer Father Hypertension Grandmother Hypertension Diabetes Surgical History H/O tooth extraction History of cholecystectomy plantar fasciitis release Social History household members: spouse and children housing: house pets and animals: Yes Smoking Status: Current every day smoker tobacco type: cigarettes alcohol intake: current alcohol intake frequency: a few times a month Alcohol type: hard liquor substance use type: does not use ROS ROS ED Constitutional Constitutional ED: Denies chills or fever(s) Eyes Eyes: Denies change in vision or discharge from eye(s) ENT ENT ED: Denies discharge from eye(s), rhinorrhea or sore throat Cardiovascular Cardiovascular: Reports chest pain; Denies palpitations Respiratory/Chest Respiratory/Chest: Reports cough Gastrointestinal Gastrointestinal: Reports abdominal pain, diarrhea, nausea and vomiting Genitourinary Genitourinary ED: Denies difficulty urinating or dysuria Musculoskeletal Musculoskeletal: Denies back pain or extremity pain Integumentary Reports rash; Denies Abrasions Neurologic Neurologic: Denies headache(s) or weakness Psychiatric Psychiatric: Denies anxiety or depression Allergic/Immunologic Allergic/Immunologic ED: Denies lip swelling or urticaria EXAM Physical Exam Const Vital Signs: 07/29/23 14:11 07/29/23 14:27 07/29/23 14:31 Temperature 96.3 F L Temperature Source Temporal Pulse Rate 107 H 98 108 H Respiratory Rate 18 20 H 21 H Blood Pressure 190/88 H 163/93 H 176/83 H Blood Pressure Mean 122 116 114 Pulse Ox 99 Oxygen Delivery Method Room Air 07/29/23 15:10 Temperature Temperature Source Pulse Rate 88 Respiratory Rate 22 H Blood Pressure Blood Pressure Mean Pulse Ox Oxygen Delivery Method Positive well nourished and well developed General Appearance ED: well developed HEENT Reports normocephalic and head/scalp atraumatic Eyes PERRL and EOMs intact bilaterally Neck supple Chest Wall inspection of chest normal and palpation of chest normal Resp normal respiratory effort and clear to auscultation bilaterally Cardio regular rhythm Rate: tachycardic GI GI Narrative: Minimal epigastric tenderness. No guarding or rebound. Mild tenderness in the right mid abdomen. Palpation: soft Narrative: Mild erythema to the perineum. Small linear abrasion noted to the right posterior labia majora. No surrounding evidence of cellulitis or infection. Extremity normal to inspection Neuro oriented x3 and no sensory deficits noted Sensorium / Orientation: alert Motor Exam: strength 5/5 throughout Psych mental status grossly normal Skin no rashes or lesions noted MDM MDM MDM Narrative Medical decision making narrative: Patient had taken 3 baby aspirin prior to arrival and was given 1 additional baby aspirin here. Patient is given morphine and Zofran for pain and nausea control. EKG obtained to evaluate for cardiac arrhythmia/ischemia. Chest x-rayobtained to evaluate for acute lung pathology, cardiac size, or mediastinal abnormality. Labwork obtained to evaluate for leukocytosis, anemia, and electrolyte derangement. History & Record Review Discussion w/independent historian: Patient and Family Lab Data Attestation: I reviewed the patient's lab results. Labs: Laboratory Results - last 24 hr 07/29/23 07/29/23 07/29/23 14:33 15:08 16:58 WBC 8.8 RBC 3.94 L Hgb 13.1 Hct 38.5 MCV 97.7 MCH 33.2 H MCHC 34.0 RDW Std Deviation 45.1 H RDW Coeff of Braxton 12.7 Plt Count 281 MPV 9.6 Immature Gran % (Auto) 0.300 Neut % (Auto) 63.7 Lymph % (Auto) 25.4 [place] % (Auto) 8.5 Eos % (Auto) 1.6 Baso % (Auto) 0.5 Absolute Neuts (auto) 5.6 Absolute Lymphs (auto) 2.24 Nucleated RBC % 0 Sodium 135 L Potassium 3.9 Chloride 102 Carbon Dioxide 26.0 Anion Gap 7 BUN 11 Creatinine 0.88 Estim Creat Clear Calc 68.98 Est GFR (MDRD) Af Amer 89 Est GFR (MDRD) Non-Af 74 BUN/Creatinine Ratio 12.5 Glucose 173 H Calcium 8.5 Total Bilirubin 0.30 Direct Bilirubin 0.08 AST 24 ALT 45 Alkaline Phosphatase 93 Troponin I High Sens 3 4 Total Protein 7.3 Albumin 3.5 Globulin 3.8 Lipase 32 Serum , Qual NEGATIVE Radiography Chest X-Ray - ED: 1 View, Read by ED Physician, Normal, Heart, Lungs and Mediastinum Diagnostic Testing: Clinical Impression(s) from Imaging Studies Chest X-Ray 07/29/23 14:55 IMPRESSION: Normal x-ray examination of the chest. Electronically Signed: Guy Roger MD at 15:15 EDT , Abdomen/Pelvis CT 07/29/23 16:20 IMPRESSION: 1. Fluid density mass in the right hemipelvis which may represent an ovarian cyst. No other acute abnormalities are identified. 2. Pancreatic calcifications which may represent chronic pancreatitis. Electronically Signed: Will Marion MD at 17:20 EDT , EKG Initial EKG: Attestation: I personally reviewed and interpreted this EKG as follows: Interpretation: Sinus Rhythm (Sinus at 98 with no acute ischemia.) Treatment and Re-Evaluation :: CBC was normal white count 8.8 with a hemoglobin of 13.1. Chemistry studies reveal a sodium of 135. Normal creatinine and potassium. Glucose is 173. LFTsand lipase are normal. Initial troponin is normal at 3. Repeat troponin is 4. On initial recheck patient reports pain starting to increase again and actually points more to the epigastrium and abdomen. She was given 0.5 mg of Dilaudid and a CT scan of the abdomen pelvis also obtained. CT reveals a fluid mass in the right hemipelvis consistent with an ovarian cyst. Pancreatic calcificationsare noted which may represent chronic pancreatitis. On final reexam patient is holding her epigastrium and complaining of pain. I believe her symptoms are consistent with a flare of her chronic pancreatitis. Right now her lipase is not elevated. She will be treated with Percocet and Zofran. She will follow a liquid diet today and then slowly advance diet. I will write her off work tomorrow. She was advised that if her symptoms worsen she is to return to the emergency room for repeat labs. She voices understanding and agreement. Discharge Plan Triage Chief Complaint: Chest Pain ED Provider: Caprice Jerry Dx/Rx/DC Orders Clinical Impression: Chronic pancreatitis, Epigastric abdominal pain Instructions: ED Pancreatitis, ED Epigastric Pain Uncertain Cause Prescriptions: New oxycodone-acetaminophen [Percocet] 5-325 mg tablet 1 tab PO Q8H PRN (Reason: pain) 3 Days Qty: 10 0RF ondansetron 4 mg tablet,disintegrating 4 mg PO Q8H PRN PRN (Reason: Nausea) Qty: 10 0RF No Action metformin 500 mg tablet 500 ea PO BID metoprolol succinate 50 mg tablet extended release 24 hr 25 mg PO DAILY albuterol sulfate 90 mcg/actuation HFA aerosol inhaler 2 puff inhalation Q6H PRN (Reason: shortness of breath or wheezing) Qty: 8.5 0RF dextromethorphan-guaifenesin 10-100 mg/5 mL liquid 10 ml PO Q4H PRN (Reason: cough) Qty: 500 0RF aspirin 81 mg Tablet,Chewable 81 mg PO DAILY@0800 Qty: 30 0RF bupropion HCl 150 mg tablet extended release 24 hr 150 mg PO DAILY Patient Comments: take 1 tablet by mouth once daily Jardiance 10 mg tablet 10 mg PO DAILY Patient Comments: take 1 tablet by mouth once daily citalopram 20 mg tablet 20 mg PO DAILY Patient Comments: take 1 tablet by mouth once daily montelukast [Singulair] 10 mg Tablet 10 mg PO DAILY levocetirizine 5 mg Tablet 5 mg PO DAILY budesonide-formoterol [Symbicort] 80-4.5 mcg/actuation Hfa Aerosol Inhaler 1 puff INHALATION BID pantoprazole 40 mg tablet,delayed release (DR/EC) 40 mg PO BID lisinopril 10 mg tablet 5 mg PO DAILY Qty: 30 6RF Stand Alone Forms: Work / School Excuse Primary Care Provider: Milana Garcia Referrals: Milana Garcia DO [Primary Care Provider] - 1 Week Disposition Disposition: Home, Self Care What to do if you have Problems For any increased pain, shortness of breath, bleeding, nausea or vomiting, chestpain, or any unexpected problems, contact your Primary Care Provider. Call [facility] ([phone]) or report to the closest Emergency Room. Call 911 if necessary. 07/29/23 1741 <Electronically signed by Caprice Jerry MD> Cosigner Signature (if applicable): CC: Milana Garcia DO ~ Signed [facility] Work Phone: [phone] 943-583806-27-[address] Jerry [facility] May 25, 2023 2:53am Note Date/Time May 24, 2023 11:2 0pm [facility] Medical Records Department [address] [place] [address] Emergency Department Summary 05/24/23 MR#: [id number] Acct: [id number] Name: JOSEPH RINCON Rep #:[id number] : 1975 48 From: Caprice Jerry MD PCP: Milana Garcia, Status:REG E R Location: ED HPI History of Present Illness Chief Complaint: Syncope Informant: patient Onset/Context/Timing Onset: Today Narrative Narrative: Patient presents via EMS after 2 syncopal episodes. Patient does not remember what happened. She and spouse at bedside states that she has had frequent syncopal episodes. She was seen in the ER earlier this month for similar. At that time was felt that her syncope was secondary to low blood pressure. She just received a 14-day energy crop farmer in the mail that she will wear. Nursing staff documented that she was ANO x1 on arrival, however the time of my exam sheis alert and oriented and spouse even comments that her memory is better. Patient does have a history of seizures listed, however when I asked her about this she states that in the past she had had some tremors but there has never been seizures documented. [facility] Medical History Acute lumbar myofascial strain Alcohol abuse Anxiety COPD (chronic obstructive pulmonary disease) CPAP (continuous positive airway pressure) dependence Depression Diabetes GERD (gastroesophageal reflux disease) History of left heart catheterization (LHC) (~11/19/22) HTN (hypertension) Myocardial infarct Pancreatitis Seizures Sleep apnea Smoker Strain of left hip Type 2 diabetes mellitus Home Medications metformin 500 mg tablet 500 ea PO BID DIABETES 10/31/22 [History Last Taken 11/17/22 21:30] lisinopril 40 mg tablet 20 mg PO DAILY BLOOD PRESSURE 11/18/22 [History Last Taken 11/17/22 09:00] aspirin 81 mg chewable tablet 81 mg PO DAILY@0800 #30 tabs 11/19/22 [Rx Last Taken Unknown] bupropion HCl 150 mg 24 hr tablet, extended release 150 mg PO DAILY 01/21/23 [History Last Taken Unknown] empagliflozin 10 mg tablet (Jardiance) 10 mg PO DAILY 01/21/23 [History Last Taken Unknown] albuterol sulfate 90 mcg/actuation aerosol inhaler 2 puff inhalation Q6H PRN shortness of breath or wheezing #8.5 grams 02/12/23 [Rx Last Taken Unknown] citalopram 20 mg tablet 20 mg PO DAILY 03/22/23 [History Last Taken Unknown] budesonide-formoterol HFA 80 mcg-4.5 mcg/actuation aerosol inhaler (Symbicort) 1puff inhalation BID 04/09/23 [History Last Taken Unknown] levocetirizine 5 mg tablet 5 mg PO DAILY 04/09/23 [History Last Taken Unknown] montelukast 10 mg tablet (Singulair) 10 mg PO DAILY 04/09/23 [History Last Taken Unknown] pantoprazole 40 mg tablet,delayed release 40 mg PO BID 05/04/23 [History Last Taken Unknown] metoprolol succinate 50 mg tablet,extended release 24 hr 25 mg PO DAILY BLOOD PRESSURE 05/20/23 [History Last Taken Unknown] Allergy/AdvReac Type Severity Reaction Status Date / Time No Known Allergies Allergy Verified 05/24/23 21:22 Family History Grandfather CVA (cerebral vascular accident) Diabetes Mother Cancer Father Hypertension Grandmother Hypertension Diabetes Surgical History H/O tooth extraction History of cholecystectomy plantar fasciitis release Social History household members: spouse Smoking Status: Current every day smoker tobacco type: cigarettes alcohol intake: current alcohol intake frequency: a few times a month Alcohol type: hard liquor substance use type: does not use ROS ROS ED Constitutional Constitutional ED: Denies chills or fever(s) Eyes Eyes: Denies discharge from eye(s) ENT ENT ED: Denies discharge from eye(s), rhinorrhea or sore throat Cardiovascular Cardiovascular: Denies chest pain or palpitations Respiratory/Chest Respiratory/Chest: Denies cough or dyspnea Gastrointestinal Gastrointestinal: Denies abdominal pain, nausea or vomiting Genitourinary Genitourinary ED: Reports urinary frequency; Denies difficulty urinating or dysuria Musculoskeletal Musculoskeletal: Denies back pain or extremity pain Integumentary Denies Abrasions or rash Neurologic Neurologic: Denies headache(s) or weakness Psychiatric Psychiatric: Denies anxiety or depression Endocrine Endocrinology: Reports polydipsia and polyuria Allergic/Immunologic Allergic/Immunologic ED: Denies lip swelling or urticaria EXAM Physical Exam Const Vital Signs: 05/24/23 21:32 05/24/23 22:22 05/25/23 00:39 Temperature 96.7 F L Temperature Source Temporal Pulse Rate 87 89 Respiratory Rate 24 H 24 H Blood Pressure 101/53 L 101/58 L 115/66 Blood Pressure Mean 69 72 82 Pulse Ox 94 96 Oxygen Delivery Method Room Air Room Air 05/25/23 01:03 05/25/23 02:11 Temperature Temperature Source Pulse Rate 90 90 Respiratory Rate 16 23 H Blood Pressure 118/69 124/69 H Blood Pressure Mean 85 87 Pulse Ox 94 Oxygen Delivery Method Room Air Positive well nourished and well developed General Appearance ED: well developed HEENT Reports normocephalic and head/scalp atraumatic Eyes PERRL and EOMs intact bilaterally Neck supple Chest Wall inspection of chest normal and palpation of chest normal Resp normal respiratory effort and clear to auscultation bilaterally Cardio regular rate and regular rhythm GI normal to inspection, nondistended, normoactive bowel sounds Palpation: soft Extremity normal to inspection Neuro oriented x3 and no sensory deficits noted Sensorium / Orientation: alert Motor Exam: strength 5/5 throughout Psych mental status grossly normal Skin no rashes or lesions noted MDM MDM MDM Narrative Medical decision making narrative: The time of my exam patient's blood pressure is low at 88 systolic. She is given IV fluid boluses. EKG obtained to evaluate for cardiac arrhythmia/ischemia. Chest x-ray obtained to evaluate for acute lung pathology,cardiac size, or mediastinal abnormality. Labwork obtained to evaluate for leukocytosis, anemia, and electrolyte derangement. CT scan of the head obtainedgiven mild headache and syncopal episodes. Lab Data Attestation: I reviewed the patient's lab results. Labs: Laboratory Results - last 24 hr 05/24/23 05/24/23 05/24/23 22:34 22:34 22:34 WBC 7.2 RBC 3.88 L Hgb 12.9 Hct 38.8 MCV 100.0 H MCH 33.2 H MCHC 33.2 RDW Std Deviation 46.2 H RDW Coeff of Braxton 12.6 Plt Count 276 MPV 9.8 Immature Gran % (Auto) 0.400 Neut % (Auto) 40.3 L Lymph % (Auto) 45.0 H [place] % (Auto) 11.4 H Eos % (Auto) 2.2 Baso % (Auto) 0.7 Absolute Neuts (auto) 2.9 Absolute Lymphs (auto) 3.25 Nucleated RBC % 0 Sodium 138 Potassium 5.9 H Chloride 112 H Carbon Dioxide 19.0 L Anion Gap 7 BUN 12 Creatinine 1.32 H Estim Creat Clear Calc 45.99 Est GFR (MDRD) Af Amer 56 L Est GFR (MDRD) Non-Af 46 L BUN/Creatinine Ratio 9.1 L Glucose 127 H Calcium 7.5 L Total Bilirubin 0.20 Direct Bilirubin < 0.05 AST 47 H ALT 27 Alkaline Phosphatase 57 Troponin I High Sens < 3 L Total Protein 6.7 Albumin 2.9 L Globulin 3.8 Lipase 64 Serum , Qual Urine Color Urine Clarity Urine pH Ur Specific [place] Urine Protein Urine Glucose (UA) Urine Ketones Urine Occult Blood Urine Nitrite Urine Bilirubin Urine Urobilinogen Ur Leukocyte Esterase Urine RBC Urine WBC Ur Squamous Epith Cells Urine Bacteria Urine Mucus Ethyl Alcohol 193.0 Acetone Level NEGATIVE 05/24/23 05/24/23 05/25/23 22:34 22:34 01:00 WBC RBC Hgb Hct MCV MCH MCHC RDW Std Deviation RDW Coeff of Braxton Plt Count MPV Immature Gran % (Auto) Neut % (Auto) Lymph % (Auto) [place] % (Auto) Eos % (Auto) Baso % (Auto) Absolute Neuts (auto) Absolute Lymphs (auto) Nucleated RBC % Sodium Potassium Chloride Carbon Dioxide Anion Gap BUN Creatinine Estim Creat Clear Calc Est GFR (MDRD) Af Amer Est GFR (MDRD) Non-Af BUN/Creatinine Ratio Glucose Calcium Total Bilirubin Direct Bilirubin AST ALT Alkaline Phosphatase Troponin I High Sens 3 Total Protein Albumin Globulin Lipase Serum , Qual NEGATIVE Urine Color Yellow Urine Clarity Clear Urine pH 6.5 Ur Specific [place] 1.005 Urine Protein Negative Urine Glucose (UA) 1000 H Urine Ketones Negative Urine Occult Blood Negative Urine Nitrite Negative Urine Bilirubin Negative Urine Urobilinogen Normal Ur Leukocyte Esterase Negative Urine RBC 0 SEEN Urine WBC 0 SEEN Ur Squamous Epith Cells 0 SEEN Urine Bacteria 0 SEEN Urine Mucus 0 SEEN Ethyl Alcohol Acetone Level Radiography Chest X-Ray - ED: 1 View, Read by ED Physician, Normal, Heart, Lungs and Mediastinum Diagnostic Testing: Clinical Impression(s) from Imaging Studies Brain CT 05/24/23 22:16 IMPRESSION: No acute abnormality. Electronically Signed: Melody Case MD at 23:01 EDT , Chest X-Ray 05/24/23 22:43 IMPRESSION: No evidence of active intrathoracic disease. Electronically Signed: Melody Case MD at 23:08 EDT , EKG Initial EKG: Attestation: I personally reviewed and interpreted this EKG as follows: Interpretation: Sinus Rhythm (Sinus 82 with no acute ischemia.) Treatment and Re-Evaluation :: EKG is sinus rhythm with no acute ischemia. Patient's had no significant arrhythmias noted on energy crop farmer throughout her ED stay. Portable chest x-ray per my interpretation reveals no acute findings. Radiology interpretation is reviewed and agrees. CT scan of the head is unremarkable. CBC reveals normal white count at 7.2 with a hemoglobin of 12.9. Chemistry studies documenta potassium of 5.9, however moderate hemolysis is noted. She has no EKG changesconsistent with hyperkalemia. BUN is 12 and creatinine is 1.32. Appears her baseline is around 0.8. Her glucose is 127. LFTs are unremarkable. Initial troponin is less than 3. Serum acetone is negative and EtOH level is 193. test is negative. Urinalysis reveals 1000 of glucose with no acute sign of infection. 2-hour repeat troponin is 3. After the patient had had a liter and a half of IV fluids her blood pressure has improved to the 1 teens systolic. She states this is where her blood pressure normally runs. Nursing staff got up to ambulate her but she did become dizzy. She completed a full 2 Lof IV fluids and at this time is able to ambulate to the restroom and back. Patient has had multiple episodes of syncope and has been worked up. She just got her energy crop farmer in the mail tonight to put on. She states her doctor rosalie talking about a possible tilt table test. At this time she does not want to stay in the hospital and I do feel with prior work-ups this is reasonable. Patient will follow-up closely with her physician and return instructions been provided. Discharge Plan Triage Chief Complaint: Syncope ED Provider: Caprice Jerry Dx/Rx/DC Orders Clinical Impression: Syncope and collapse, Dehydration, Elevated ETOH level Instructions: ED Dehydration (Adult), ED Low Blood Pressure, All Causes, ED Fainting, Uncertain Cause Prescriptions: No Action metformin 500 mg tablet 500 ea PO BID metoprolol succinate 50 mg tablet extended release 24 hr 25 mg PO DAILY albuterol sulfate 90 mcg/actuation HFA aerosol inhaler 2 puff inhalation Q6H PRN (Reason: shortness of breath or wheezing) Qty: 8.5 0RF lisinopril 40 mg tablet 20 mg PO DAILY aspirin 81 mg Tablet,Chewable 81 mg PO DAILY@0800 Qty: 30 0RF bupropion HCl 150 mg tablet extended release 24 hr 150 mg PO DAILY Label Comments: take 1 tablet by mouth once daily Jardiance 10 mg tablet 10 mg PO DAILY Label Comments: take 1 tablet by mouth once daily citalopram 20 mg tablet 20 mg PO DAILY Label Comments: take 1 tablet by mouth once daily montelukast [Singulair] 10 mg Tablet 10 mg PO DAILY levocetirizine 5 mg Tablet 5 mg PO DAILY budesonide-formoterol [Symbicort] 80-4.5 mcg/actuation Hfa Aerosol Inhaler 1 puff INHALATION BID pantoprazole 40 mg tablet,delayed release (DR/EC) 40 mg PO BID Primary Care Provider: Milana Garcia Referrals: Milana Garcia, DO [Primary Care Provider] - 3-5 Days Disposition Disposition: Home, Self Care What to do if you have Problems For any increased pain, shortness of breath, bleeding, nausea or vomiting, chestpain, or any unexpected problems, contact your Primary Care Provider. Call [facility] ([phone]) or report to the closest Emergency Room. Call 911 if necessary. 05/25/23 3566 <Electronically signed by Caprice Jerry MD> Cosigner Signature (if applicable): CC: Milana Garcia DO ~ Signed [facility] Work Phone: [phone] 828-371806-07-[address] Dyer [facility] May 05, 2023 12:31am Note Date/Time May 04, 2023 10:36 pm [facility] Medical Records Department [address] [place] [address] Emergency Department Summary 05/04/23 MR#: [id number] Acct: [id number] Name: JOSEPH RINCON Rep #:[id number] : 1975 48 From: John Dyer DO PCP: Milana Garcia DO Status:REG E R Location: ED HPI History of Present Illness Chief Complaint: Syncope Narrative Narrative: 48-year-old female presenting with an episode of syncope. She states she was athome today and her was cooking on the grill. She remembers being outside and speaking with somebody and then came inside to cook on the air Fryer. She states she was sitting on a stool and the next day how she woke up on the ground. She did hit her head. She does not recall the event. She has amild headache but denies neck pain. No other injuries. Patient does have a history of syncope in the past. She is not having chest pain or shortness of breath. She is not anticoagulated. She reports a recent echo which is normal. She had a cardiac cath 11/19/2022 which was normal. [facility] Medical History Acute lumbar myofascial strain Alcohol abuse Anxiety COPD (chronic obstructive pulmonary disease) CPAP (continuous positive airway pressure) dependence Depression Diabetes GERD (gastroesophageal reflux disease) History of left heart catheterization (LHC) (~11/19/22) HTN (hypertension) Myocardial infarct Pancreatitis Seizures Sleep apnea Smoker Strain of left hip Type 2 diabetes mellitus Home Medications metformin 500 mg tablet 500 ea PO BID DIABETES 10/31/22 [History Last Taken 11/17/22 21:30] metoprolol succinate 50 mg tablet,extended release 24 hr 50 ea PO DAILY BLOOD PRESSURE 10/31/22 [History Last Taken 11/17/22 09:00] lisinopril 40 mg tablet 20 mg PO DAILY BLOOD PRESSURE 11/18/22 [History Last Taken 11/17/22 09:00] aspirin 81 mg chewable tablet 81 mg PO DAILY@0800 #30 tabs 11/19/22 [Rx Last Taken Unknown] bupropion HCl 150 mg 24 hr tablet, extended release 150 mg PO DAILY 01/21/23 [History Last Taken Unknown] empagliflozin 10 mg tablet (Jardiance) 10 mg PO DAILY 01/21/23 [History Last Taken Unknown] albuterol sulfate 90 mcg/actuation aerosol inhaler 2 puff inhalation Q6H PRN shortness of breath or wheezing #8.5 grams 02/12/23 [Rx Last Taken Unknown] citalopram 20 mg tablet 20 mg PO DAILY 03/22/23 [History Last Taken Unknown] budesonide-formoterol HFA 80 mcg-4.5 mcg/actuation aerosol inhaler (Symbicort) 1puff inhalation BID 04/09/23 [History Last Taken Unknown] levocetirizine 5 mg tablet 5 mg PO DAILY 04/09/23 [History Last Taken Unknown] montelukast 10 mg tablet (Singulair) 10 mg PO DAILY 04/09/23 [History Last Taken Unknown] pantoprazole 40 mg tablet,delayed release 40 mg PO BID 05/04/23 [History Last Taken Unknown] Allergy/AdvReac Type Severity Reaction Status Date / Time No Known Allergies Allergy Verified 05/04/23 19:58 Family History Grandfather CVA (cerebral vascular accident) Diabetes Mother Cancer Father Hypertension Grandmother Hypertension Diabetes Surgical History H/O tooth extraction History of cholecystectomy plantar fasciitis release Social History household members: spouse Smoking Status: Current every day smoker tobacco type: cigarettes alcohol intake: current alcohol intake frequency: a few times a month Alcohol type: hard liquor substance use type: does not use ROS ROS ED Constitutional Constitutional ED: Denies chills, fever(s) or sweats Eyes Eyes: Denies blurry vision or change in vision ENT ENT ED: Denies ear pain or sore throat Cardiovascular Cardiovascular: Denies chest pain, palpitations or racing heartbeat Respiratory/Chest Respiratory/Chest: Denies cough, dyspnea or sputum Gastrointestinal Gastrointestinal: Denies abdominal pain, constipation, diarrhea, nausea or vomiting Genitourinary Genitourinary ED: Denies dysuria, hematuria or urinary frequency Musculoskeletal Musculoskeletal: Denies arthralgias, myalgias or neck pain Integumentary Denies abscess, Abrasions or rash Neurologic Neurologic: Reports headache(s) Psychiatric Psychiatric: Denies anxiety, depression, suicidal ideation or suicidal thoughts Endocrine Endocrinology: Denies polydipsia or polyuria EXAM Physical Exam Const Vital Signs: 05/04/23 19:53 05/04/23 21:16 05/04/23 21:43 Temperature 97.3 F L Temperature Source Temporal Pulse Rate 75 Pulse Rate [Lying] Pulse Rate [Sitting (for 1 minute prior to obtaining)] Respiratory Rate 15 Respiratory Pattern Normal Blood Pressure 99/62 Blood Pressure [Lying] Blood Pressure Mean 74 Blood Pressure Mean [Lying] Pulse Ox 93 Oxygen Delivery Method Room Air Room Air 05/04/23 21:52 05/04/23 21:59 05/04/23 23:00 Temperature Temperature Source Pulse Rate 73 76 Pulse Rate [Lying] 69 Pulse Rate [Sitting (for 1 minute prior to obtaining)] 71 Respiratory Rate 16 12 Respiratory Pattern Blood Pressure 109/64 86/56 L Blood Pressure [Lying] 91/61 Blood Pressure Mean 79 66 Blood Pressure Mean [Lying] 71 Pulse Ox 95 95 Oxygen Delivery Method Room Air Room Air Positive well nourished General Appearance ED: Negative for pallor HEENT Reports moist mucous membranes Negative for trauma Eyes PERRL and EOMs intact bilaterally Resp normal respiratory effort Auscultation: Negative for rales, rhonchi or wheezes Cardio regular rate and regular rhythm GI normal to inspection, nondistended, normoactive bowel sounds Extremity normal to inspection Neuro oriented x3 and CN's II-XII intact bilaterally Sensorium / Orientation: alert Psych mental status grossly normal Skin no rashes or lesions noted and no wounds General Skin Exam: Negative for jaundice or pallor MDM MDM MDM Narrative Medical decision making narrative: 48-year-old female presenting with an episode of syncope. She does have a mild headache. EKG showed a sinus rhythm at a rate of 65 bpm without sign of ischemic change or ectopy on my interpretation. Chest x-ray on my interpretation is no acute cardiopulmonary process. Radiologist are present and agrees. CBC and BMP are unremarkable. High-sensitivity troponin is less than 3. She has not reported any chest pain. Patient's orthostatic vital signs show her blood pressure is 91/61 and when she sits up it is 109/64 however when she stands 85/56. This is technically not orthostatic hypotension. He was given a liter of IV fluids. Patient looks well. Her headache was treated with Reglan and Benadryl. On reevaluation she is sleeping comfortably. I will have the patient ambulated. Patient discharged home in stable condition. Impression: 1. Syncope 2. Closed head injury 3. Head Lab Data Attestation: I reviewed the patient's lab results. Labs: Laboratory Results - last 24 hr 05/04/23 05/04/23 21:40 21:40 WBC 8.9 RBC 3.72 L Hgb 12.1 Hct 36.6 L MCV 98.4 MCH 32.5 H MCHC 33.1 RDW Std Deviation 47.8 H RDW Coeff of Braxton 13.3 Plt Count 274 MPV 9.4 Immature Gran % (Auto) 0.600 Neut % (Auto) 51.3 Lymph % (Auto) 35.6 [place] % (Auto) 9.4 Eos % (Auto) 2.7 Baso % (Auto) 0.4 Absolute Neuts (auto) 4.6 Absolute Lymphs (auto) 3.17 Nucleated RBC % 0 Sodium 138 Potassium 3.4 L Chloride 105 Carbon Dioxide 27.0 Anion Gap 6 BUN 14 Creatinine 0.73 Estim Creat Clear Calc 83.15 Est GFR (MDRD) Af Amer 110 Est GFR (MDRD) Non-Af 91 BUN/Creatinine Ratio 19.2 Glucose 103 Calcium 8.6 Troponin I High Sens < 3 L Radiography Diagnostic Testing: Clinical Impression(s) from Imaging Studies Chest X-Ray 05/04/23 22:08 IMPRESSION: No evidence of active intrathoracic disease. Electronically Signed: Melody Case MD at 22:33 EDT , Brain CT 06/06/23 22:35 IMPRESSION: No acute abnormality. Electronically Signed: Melody Case MD at 0:10 EDT , Discharge Plan Triage Chief Complaint: Syncope Other Complaint: Weakness ED Provider: John Dyer Dx/Rx/DC Orders Prescriptions: No Action metformin 500 mg tablet 500 ea PO BID metoprolol succinate 50 mg tablet extended release 24 hr 50 ea PO DAILY albuterol sulfate 90 mcg/actuation HFA aerosol inhaler 2 puff inhalation Q6H PRN (Reason: shortness of breath or wheezing) Qty: 8.5 0RF lisinopril 40 mg tablet 20 mg PO DAILY aspirin 81 mg Tablet,Chewable 81 mg PO DAILY@0800 Qty: 30 0RF bupropion HCl 150 mg tablet extended release 24 hr 150 mg PO DAILY Label Comments: take 1 tablet by mouth once daily Jardiance 10 mg tablet 10 mg PO DAILY Label Comments: take 1 tablet by mouth once daily citalopram 20 mg tablet 20 mg PO DAILY Label Comments: take 1 tablet by mouth once daily montelukast [Singulair] 10 mg Tablet 10 mg PO DAILY levocetirizine 5 mg Tablet 5 mg PO DAILY budesonide-formoterol [Symbicort] 80-4.5 mcg/actuation Hfa Aerosol Inhaler 1 puff INHALATION BID pantoprazole 40 mg tablet,delayed release (DR/EC) 40 mg PO BID Primary Care Provider: Milana Garcia Referrals: Milana Garcia, [Primary Care Provider] - What to do if you have Problems For any increased pain, shortness of breath, bleeding, nausea or vomiting, chestpain, or any unexpected problems, contact your Primary Care Provider. Call [facility] ([phone]) or report to the closest Emergency Room. Call 911 if necessary. 05/05/2330 <Electronically signed by John Dyer DO> Cosigner Signature (if applicable): CC: Milana Garcia DO ~ Signed [facility] Work Phone: 1(543) 802-216705-13-[address] Johnson [facility] April 10, 2023 3:15pm Note Date/Time April 10, 2023 3:15p taisha [facility] Medical Records Department [address] [place] [address] Progress Note - Hospitalist 04/10/23 1511 MR#: [id number] Acct: [id number] Name: JOSEPH RINCON Rep #:[id number] : 1975 48 From: Radha Johnson DO PCP: Milana Garcia DO Status:ADM I N Location: [place] [address] Hospitalist Note Is a 48-year-old white female with a past medical history of diabetes who presented to the emergency department early this morning complaining of chest pain that started a few hours prior to presentation. She stated it was aching and had been intermittent for the last 2 to 3 days. She reported that Pepto-Bismol and Tums appeared to help her with her symptoms. She also complained of some lightheadedness and then later completed of vertigo. She checked her bloodpressure at home and was found to be low with systolics in the 70s to 80s and diastolics in the 40s and heart rate was in the 100s. She had some nausea and vomiting and multiple loose stools the day prior to presentation. She is on vent and Jardiance for her diabetes at home. On presentation she had a significant lactic acidosis with a lactic acid level of 6.3. With fluids resuscitation it is improved. She also was found to have an LUI with a serum creatinine of 1.44. I suspect she was dehydrated with regards to her nausea vomiting and diarrhea 2 days prior. An MRI was performed with her vertigo and was negative for any acute findings. Clinically she is feeling much better. She had a heart catheterization on 11/19/2022 which was completely normal and showed no signs of any obstruction or coronary artery disease. This was done for elevated troponin which was attributed to her marked hypertension at that time. Clinically she is much better today. She is taking in p.o. without any difficulty. I have stopped her IV fluids and as long as she continues to eat and drink well I think we can work on discharging her tomorrow. I suspect her lactic acid is related to her dehydration and metformin use. Protonix will be initiated as it sounds like she has some GERD type symptoms that are causing some issues for her at baseline. 04/10/23 6265 <Electronically signed by Radha Johnson DO> Cosigner Signature (if applicable): CC: ~ Signed [facility] Work Phone: 1(525) 693-728805-13-[address] Jacobs [facility] April 10, 2023 7:13am Note Date/Time April 09, 2023 11:06 pm [facility] Medical Records Department [address] [place] [address] Emergency Department Summary 04/09/23 MR#: [id number] Acct: [id number] Name: JOSEPH RINCON Rep #:[id number] : 1975 48 From: David Ruelas PCP: Milana Garcia DO Status:ADM I N Location: [place] [address] HPI History of Present Illness Chief Complaint: Chest Pain Informant: patient Onset/Context/Timing Onset: Hours Activity at onset: sudden Timing: Continuous Quality: Positive for Aching and Pressure Location: Substernal, Right Parasternal, Left Parasternal, Right Chest, Left Chest and - (Jaw and neck) Worsened By: - (Certain activities) Relieved By: Nothing Associated Symptoms: Positive for Nausea, Diaphoresis, Dyspnea, Cough, Lightheadedness, Acid Reflux and Palpitations; Negative for Vomiting or Fever Narrative Narrative: Patient presents with chest pain that began tonight. Patient states it began a few hours prior to arrival. Patient describes it as aching and pressure. Patient states it began rather suddenly while she was eating dinner tonight. Patient states that this diffuse across her chest. Patient states it radiates into her jaw. Patient states it is worse with certain activities. Patient admits to some nausea but denies any vomiting. Patient denies any fevers or chills. Patient admits to some cough and shortness of breath. Patient also admits to some lightheadedness and reflux. Patient also admits to some palpitations where she feels like her heart is racing. CVD Risk Factors: Positive for Diabetes and Smoking; Negative for Hypertension, Hypercholesterolemia or Family History 1' </=55 PE Risk Factors: Negative for Recent Travel/Surgery, Recent Immobilization, Prior DVT or PE, Cancer or OCP + Smoking + >/=35 TAD Risk Factors: Negative for Hypertension PFSH [facility] Medical History Acute lumbar myofascial strain Anxiety Depression Diabetes History of left heart catheterization (LHC) (~11/19/22) HTN (hypertension) Pancreatitis Sleep apnea Strain of left hip Home Medications metformin 500 mg tablet 500 ea PO BID DIABETES 10/31/22 [History Last Taken 11/17/22 21:30] metoprolol succinate 50 mg tablet,extended release 24 hr 50 ea PO DAILY BLOOD PRESSURE 10/31/22 [History Last Taken 11/17/22 09:00] lisinopril 40 mg tablet 40 mg PO DAILY BLOOD PRESSURE 11/18/22 [History Last Taken 11/17/22 09:00] aspirin 81 mg chewable tablet 81 mg PO DAILY@0800 #30 tabs 11/19/22 [Rx Last Taken Unknown] bupropion HCl 150 mg 24 hr tablet, extended release 150 mg PO DAILY 01/21/23 [History Last Taken Unknown] empagliflozin 10 mg tablet (Jardiance) 10 mg PO DAILY 01/21/23 [History Last Taken Unknown] albuterol sulfate 90 mcg/actuation aerosol inhaler 2 puff inhalation Q6H PRN shortness of breath or wheezing #8.5 grams 02/12/23 [Rx Last Taken Unknown] citalopram 20 mg tablet 20 mg PO DAILY 03/22/23 [History Last Taken Unknown] budesonide-formoterol HFA 80 mcg-4.5 mcg/actuation aerosol inhaler (Symbicort) 1puff inhalation BID 04/09/23 [History Last Taken Unknown] doxycycline monohydrate 100 mg capsule 100 mg PO BID 04/09/23 [History Last Taken Unknown] levocetirizine 5 mg tablet 5 mg PO DAILY 04/09/23 [History Last Taken Unknown] methylprednisolone 8 mg tablet (Medrol) 8 mg PO DAILY 04/09/23 [History Last Taken Unknown] montelukast 10 mg tablet (Singulair) 10 mg PO DAILY 04/09/23 [History Last Taken Unknown] Allergy/AdvReac Type Severity Reaction Status Date / Time No Known Allergies Allergy Verified 04/09/23 22:25 Family History Grandfather CVA (cerebral vascular accident) Diabetes Mother Cancer Father Hypertension Grandmother Hypertension Diabetes Surgical History H/O tooth extraction History of cholecystectomy plantar fasciitis release Social History household members: spouse Smoking Status: Current every day smoker tobacco type: cigarettes alcohol intake: current alcohol intake frequency: a few times a month Alcohol type: hard liquor substance use type: does not use ROS ROS ED Constitutional Constitutional ED: Denies chills or fever(s) Eyes Eyes: Denies blurry vision or change in vision ENT ENT ED: Reports sore throat; Denies rhinorrhea Cardiovascular Cardiovascular: Reports chest pain, palpitations and racing heartbeat Respiratory/Chest Respiratory/Chest: Reports cough and dyspnea Gastrointestinal Gastrointestinal: Reports nausea; Denies abdominal pain or vomiting Genitourinary Genitourinary ED: Denies dysuria or hematuria Musculoskeletal Musculoskeletal: Reports neck pain; Denies back pain Integumentary Reports rash; Denies abscess Neurologic Neurologic: Denies headache(s) or weakness Allergic/Immunologic Allergic/Immunologic ED: Denies mouth swelling or urticaria EXAM Physical Exam Const Vital Signs: 04/09/23 22:23 04/09/23 22:50 04/09/23 23:20 Temperature 97.3 F L Temperature Source Temporal Pulse Rate 98 88 92 Respiratory Rate 16 22 H 22 H Blood Pressure 94/57 L 90/54 L 86/46 L Blood Pressure Mean 69 66 59 Pulse Ox 97 95 95 Oxygen Delivery Method Room Air Room Air Room Air 04/10/23 00:21 04/10/23 00:37 04/10/23 01:09 Temperature 97.6 F L Temperature Source Oral Pulse Rate 92 88 89 Respiratory Rate 18 22 H 18 Blood Pressure 90/53 L 91/48 L 87/51 L Blood Pressure Mean 65 62 63 Pulse Ox 96 94 94 Oxygen Delivery Method Room Air Room Air Room Air 04/10/23 01:28 04/10/23 02:15 Temperature 98.0 F Temperature Source Temporal Pulse Rate 85 92 Respiratory Rate 17 20 H Blood Pressure 102/56 L 105/66 Blood Pressure Mean 71 79 Pulse Ox 93 93 Oxygen Delivery Method Room Air Room Air Positive well nourished and well developed General Appearance ED: well developed and NAD HEENT normocephalic and atraumatic Eyes PERRL and EOMs intact bilaterally Neck supple and no JVD Chest Wall palpation of chest normal Resp normal respiratory effort and clear to auscultation bilaterally Effort and Inspection: Negative for respiratory distress Cardio regular rate, regular rhythm and no murmurs GI normal to inspection, nondistended, normoactive bowel sounds, soft to palpation,non-tender and non-distended Extremity normal to inspection General Extremety ED: Negative for edema or tenderness General Extremity: Negative for edema Neuro oriented x3, CN's II-XII intact bilaterally and no sensory deficits noted Sensorium / Orientation: awake and alert Motor Exam: strength 5/5 throughout Psych mental status grossly normal Heart Score History: Slightly/Non-Suspicious ECG: Normal Age: >45 - <65 years Risk Factors: >/= 3 Risk Factors or History of CAD Troponin: </= Normal Limit Score: 3 MDM MDM MDM Narrative Medical decision making narrative: Differential diagnosis includes cardiac dysrhythmia, cardiac ischemia, pneumothorax, esophagitis, GERD, dysphagia, pulmonary embolism, pneumonia, anxiety, musculoskeletal etiology. EKG will be obtained to assess for cardiac dysrhythmia and cardiac ischemia. Chest x-ray will be obtained to assess for pneumonia and pneumothorax. CBC will be obtained to assess for leukocytosis andanemia. Basic metabolic profile will be obtained to assess for electrolyte abnormality and renal function. High-sensitivity troponin will be obtained to assess for cardiac ischemia. D- dimer will be obtained to assess for pulmonary embolism. History & Record Review Additional record(s) reviewed:: Prior inpatient record and Prior labs Lab Data Attestation: I reviewed the patient's lab results. Lab results narrative: Basic metabolic profile was reviewed. Creatinine was slightly elevated at 1.44. Anion gap was elevated at 17. Sodium was 134 and chloride was 97. CO2 was slightly low at 20. Glucose was elevated at 231. High-sensitivity troponin wasreviewed and was normal at 3. D-dimer was normal at less than 0.27. 2-hour repeat high-sensitivity troponin was reviewed and was less than 3. Lactate was reviewed and was elevated at 6.3. Urinalysis was reviewed. There is no evidence of urinary tract infection or hematuria. Serum acetone was reviewed and was negative. Labs: Laboratory Results - last 24 hr 04/09/23 04/09/23 04/09/23 23:03 23:03 23:03 WBC 8.0 RBC 3.87 L Hgb 12.5 Hct 38.5 MCV 99.5 H MCH 32.3 H MCHC 32.5 RDW Std Deviation 47.4 H RDW Coeff of Braxton 13.0 Plt Count 298 MPV 10.0 Immature Gran % (Auto) 1.400 H Neut % (Auto) 85.1 H Lymph % (Auto) 11.3 L [place] % (Auto) 1.6 Eos % (Auto) 0.4 Baso % (Auto) 0.2 Absolute Neuts (auto) 6.8 Absolute Lymphs (auto) 0.91 Nucleated RBC % 0 D-Dimer Quant (PE/DVT) < 0.27 L Sodium 134 L Potassium 4.0 Chloride 97 L Carbon Dioxide 20.0 L Anion Gap 17 H BUN 18 Creatinine 1.44 H Estim Creat Clear Calc 42.15 Est GFR (MDRD) Af Amer 50 L Est GFR (MDRD) Non-Af 42 L BUN/Creatinine Ratio 12.5 Glucose 231 H Lactic Acid Calcium 8.9 Troponin I High Sens 3 Urine Color Urine Clarity Urine pH Ur Specific [place] Urine Protein Urine Glucose (UA) Urine Ketones Urine Occult Blood Urine Nitrite Urine Bilirubin Urine Urobilinogen Ur Leukocyte Esterase Urine RBC Urine WBC Ur Squamous Epith Cells Urine Bacteria Urine Mucus Acetone Level 04/10/23 04/10/23 04/10/23 00:05 00:05 01:25 WBC RBC Hgb Hct MCV MCH MCHC RDW Std Deviation RDW Coeff of Braxton Plt Count MPV Immature Gran % (Auto) Neut % (Auto) Lymph % (Auto) [place] % (Auto) Eos % (Auto) Baso % (Auto) Absolute Neuts (auto) Absolute Lymphs (auto) Nucleated RBC % D-Dimer Quant (PE/DVT) Sodium Potassium Chloride Carbon Dioxide Anion Gap BUN Creatinine Estim Creat Clear Calc Est GFR (MDRD) Af Amer Est GFR (MDRD) Non-Af BUN/Creatinine Ratio Glucose Lactic Acid 6.3 H* Calcium Troponin I High Sens Urine Color Yellow Urine Clarity Clear Urine pH 6.5 Ur Specific [place] 1.010 Urine Protein Negative Urine Glucose (UA) 1000 H Urine Ketones Negative Urine Occult Blood Negative Urine Nitrite Negative Urine Bilirubin Negative Urine Urobilinogen Normal Ur Leukocyte Esterase Negative Urine RBC 0 SEEN Urine WBC 0 SEEN Ur Squamous Epith Cells 0 SEEN Urine Bacteria 0 SEEN Urine Mucus 0 SEEN Acetone Level NEGATIVE 04/10/23 04/10/23 04/10/23 01:25 02:00 02:00 WBC RBC Hgb Hct MCV MCH MCHC RDW Std Deviation RDW Coeff of Braxton Plt Count MPV Immature Gran % (Auto) Neut % (Auto) Lymph % (Auto) [place] % (Auto) Eos % (Auto) Baso % (Auto) Absolute Neuts (auto) Absolute Lymphs (auto) Nucleated RBC % D-Dimer Quant (PE/DVT) Sodium 140 Potassium 4.8 Chloride 110 H Carbon Dioxide 19.0 L Anion Gap 11 BUN 16 Creatinine 1.01 Estim Creat Clear Calc 60.10 Est GFR (MDRD) Af Amer 76 Est GFR (MDRD) Non-Af 63 BUN/Creatinine Ratio 15.8 Glucose 160 H Lactic Acid 4.2 H* Calcium 7.3 L Troponin I High Sens < 3 L Urine Color Urine Clarity Urine pH Ur Specific [place] Urine Protein Urine Glucose (UA) Urine Ketones Urine Occult Blood Urine Nitrite Urine Bilirubin Urine Urobilinogen Ur Leukocyte Esterase Urine RBC Urine WBC Ur Squamous Epith Cells Urine Bacteria Urine Mucus Acetone Level ABG Data ABG results: ABG 04/10/23 00:13 Specimen Type GELACIO VBG pH 7.29 L VBG pO2 54 H VBG HCO3 20 L VBG Total CO2 21 L VBG O2 Sat (Calc) 84 H VBG Base Excess -7 L POC Mix VBG pCO2 Pt Tmp 40.5 L O2 Delivery Device Room Air Radiography Chest X-Ray - ED: 1 View, Read by ED Physician, Read by Radiologist and No AcuteDisease Diagnostic Testing: Clinical Impression(s) from Imaging Studies Chest X-Ray 04/09/23 23:22 IMPRESSION: No radiographic evidence of acute cardiopulmonary disease. Electronically Signed: Alcon Sebastian MD at 0:00 EDT , Portable 1 view chest x-ray was obtained. On my independent interpretation, lung benton are clear. There is normal cardiac silhouette. Bony thorax is normal. There is no acute process noted. Radiologist also interpreted the x-ray and agrees. EKG Initial EKG: Attestation: I personally reviewed and interpreted this EKG as follows: Interpretation: Sinus Rhythm (86) and No Acute Injury Pattern Comments: EKG was obtained. On my independent interpretation, it showed anormal sinus rhythm with a rate of 86. ME interval, QRS interval, and QTc intervals were all normal. [place] was normal. There are no acute ST or T wave changes. Prior EKG tracings: available for review Prior: Unchanged (03/22/2023) Management Discussion w/another healthcare provider: Hospitalist Treatment and Re-Evaluation :: Patient was given IV fluids. Patient's blood pressure remains somewhat low. Patient was given repeat bolus of normal saline. Because of the elevated anion gap, serum acetone and lactic acid was obtained. At this point, I do not have asource of any infection that would be causing the elevated lactic acidosis. Since her serum acetone was negative, I do not feel she is in DKA. Case was discussed with the hospitalist. He will admit the patient to the hospital. Patient understood and was agreeable with the plan. All questions were answered. 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 Call [facility] ([phone]) or report to the closest Emergency Room. Call 911 if necessary. 04/10/23 0713 <Electronically signed by David Jacobs DO> Cosigner Signature (if applicable): CC: Milana Garcia DO ~ Signed [facility] Work Phone: [phone]) 165-829405-13-2023 History and physical note Author Dr. Kiran [facility] April 10, 2023 5:36am Note Date/Time April 10, 2023 1:28a m [facility] Medical Records Department [address] [place] [address] H&P Exam - Hospitalist 04/10/23 0128 MR#: [id number] Acct: [id number] Name: JOSEPH RINCON Rep #:[id number] : 1975 48 From: Young Kiran MD PCP: Milana Garcia, DO Status:ADM I N Location: [place] [address] HPI - General General Date of Admission: 04/10/23 Date of Service: 04/10/23 Chief Complaint: chest pain HPI Narrative JOSEPH RINCON, is a 48 F with a significant history diabetes mellitus who presents to the emergency department with chest pain that started few hours before presentation. She described the chest pain as pressure and aching. Thischest pain has been intermittent and ongoing for the past 2 to 3 days. Mild exertion bring the chest pain on. Pepto-Bismol and inder appears to help with thechest pain. Also about 3 and half hours before presentation patient choked on food. Further she reports dizziness. Initially her dizziness was lightheadedness but later on she had Vertigo. Her Vertigo comes on with ambulation. Also patient complains of right jaw pain. At home her blood pressure was low. Her systolic blood pressure was 70s to 80s and and her diastolic blood pressure was 40s. At the time of low blood pressure her pulse was 102. Further she reports nausea. She vomited with the choking episode. However a few days past patient also vomited. A day before presentation patient had multiple loose stools. [facility] Medical History Acute lumbar myofascial strain Anxiety Depression Diabetes History of left heart catheterization (LHC) (~11/19/22) HTN (hypertension) Pancreatitis Sleep apnea Strain of left hip Home Medications metformin 500 mg tablet 500 ea PO BID DIABETES 10/31/22 [History Last Taken 11/17/22 21:30] metoprolol succinate 50 mg tablet,extended release 24 hr 50 ea PO DAILY BLOOD PRESSURE 10/31/22 [History Last Taken 11/17/22 09:00] lisinopril 40 mg tablet 40 mg PO DAILY BLOOD PRESSURE 11/18/22 [History Last Taken 11/17/22 09:00] aspirin 81 mg chewable tablet 81 mg PO DAILY@0800 #30 tabs 11/19/22 [Rx Last Taken Unknown] bupropion HCl 150 mg 24 hr tablet, extended release 150 mg PO DAILY 01/21/23 [History Last Taken Unknown] empagliflozin 10 mg tablet (Jardiance) 10 mg PO DAILY 01/21/23 [History Last Taken Unknown] albuterol sulfate 90 mcg/actuation aerosol inhaler 2 puff inhalation Q6H PRN shortness of breath or wheezing #8.5 grams 02/12/23 [Rx Last Taken Unknown] citalopram 20 mg tablet 20 mg PO DAILY 03/22/23 [History Last Taken Unknown] budesonide-formoterol HFA 80 mcg-4.5 mcg/actuation aerosol inhaler (Symbicort) 1puff inhalation BID 04/09/23 [History Last Taken Unknown] doxycycline monohydrate 100 mg capsule 100 mg PO BID 04/09/23 [History Last Taken Unknown] levocetirizine 5 mg tablet 5 mg PO DAILY 04/09/23 [History Last Taken Unknown] methylprednisolone 8 mg tablet (Medrol) 8 mg PO DAILY 04/09/23 [History Last Taken Unknown] montelukast 10 mg tablet (Singulair) 10 mg PO DAILY 04/09/23 [History Last Taken Unknown] Allergy/AdvReac Type Severity Reaction Status Date / Time No Known Allergies Allergy Verified 04/09/23 22:25 Family History Grandfather CVA (cerebral vascular accident) Diabetes Mother Cancer Father Hypertension Grandmother Hypertension Diabetes Surgical History H/O tooth extraction History of cholecystectomy plantar fasciitis release Social History household members: spouse Smoking Status: Current every day smoker tobacco type: cigarettes alcohol intake: current alcohol intake frequency: a few times a month Alcohol type: hard liquor substance use type: does not use ROS ROS Narrative Pertinent positives and pertinent negatives as noted in HPI. All other systems were reviewed and are negative Vital Signs Vital Signs Vital Signs: 04/09/23 22:23 04/09/23 22:50 04/09/23 23:20 Temperature 97.3 F L Temperature Source Temporal Pulse Rate 98 88 92 Respiratory Rate 16 22 H 22 H Blood Pressure 94/57 L 90/54 L 86/46 L Blood Pressure Mean 69 66 59 Pulse Ox 97 95 95 Oxygen Delivery Method Room Air Room Air Room Air 04/10/23 00:21 04/10/23 00:37 04/10/23 01:09 Temperature 97.6 F L Temperature Source Oral Pulse Rate 92 88 89 Respiratory Rate 18 22 H 18 Blood Pressure 90/53 L 91/48 L 87/51 L Blood Pressure Mean 65 62 63 Pulse Ox 96 94 94 Oxygen Delivery Method Room Air Room Air Room Air Weight Weight: 70.8 kg Body Mass Index (BMI) 26.8 Physical Exam Narrative Physical exam: General: Well-nourished, well-developed. Head: Normocephalic, atraumatic, no tenderness Eyes: Vision is grossly intact. EOMI ENT: Right TM with apparent tympanic membrane. Unable to visualize left tympanic membranes clearly. No trauma, dry mucous membranes, no rhinorrhea Neck: Nontender, No thyromegaly. CVS: Regular rate and rhythm. S1-S2 present. No murmur, gallop or rub. Respiratory : clear to auscultation bilaterally, chest wall nontender Abdomen: Soft, nontender, nondistended, normal bowel sounds, no masses : Deferred Back: Nontender, no CVA tenderness, no midline spinal tenderness, deformities, step-offs Extremities: Nontender full range of motion, no trauma Skin: Petechiae rash on left neck and on bilateral upper extremities. Neuro: Alert, oriented, cranial nerves II through XII grossly intact. [place]- Hallpike maneuver to the right was positive for Vertigo; but the right was not positive for Vertigo. Psychiatry: Normal mood. Normal affect. Not depressed. Not anxious. Results Lab / Micro Data Result Diagrams: 04/09/23 23:03 04/10/23 02:00 Labs: Laboratory Results - last 24 hr 04/09/23 23:03: WBC 8.0, RBC 3.87 L, Hgb 12.5, Hct 38.5, MCV 99.5 H, MCH 32.3 H,MCHC 32.5, RDW Std Deviation 47.4 H, RDW Coeff of Braxton 13.0, Plt Count 298, MPV 10.0, Immature Gran % (Auto) 1.400 H, Neut % (Auto) 85.1 H, Lymph % (Auto) 11.3 L, [place] % (Auto) 1.6, Eos % (Auto) 0.4, Baso % (Auto) 0.2, Absolute Neuts (auto)6.8, Absolute Lymphs (auto) 0.91, Nucleated RBC % 0 04/09/23 23:03: D-Dimer Quant (PE/DVT) < 0.27 L 04/09/23 23:03: Sodium 134 L, Potassium 4.0, Chloride 97 L, Carbon Dioxide 20.0 L, Anion Gap 17 H, BUN 18, Creatinine 1.44 H, Estim Creat Clear Calc 42.15, Est GFR (MDRD) Af Amer 50 L, Est GFR (MDRD) Non-Af 42 L, BUN/Creatinine Ratio 12.5, Glucose 231 H, Calcium 8.9, Troponin I High Sens 3 04/10/23 00:05: Acetone Level NEGATIVE 04/10/23 00:05: Lactic Acid 6.3 H* ABG Data ABG results: ABG 04/10/23 00:13 Specimen Type GELACIO VBG pH 7.29 L VBG pO2 54 H VBG HCO3 20 L VBG Total CO2 21 L VBG O2 Sat (Calc) 84 H VBG Base Excess -7 L POC Mix VBG pCO2 Pt Tmp 40.5 L O2 Delivery Device Room Air Radiology Impression Chest X-Ray 04/09/23 23:22 IMPRESSION: No radiographic evidence of acute cardiopulmonary disease. Electronically Signed: Alcon Sebastian MD at 0:00 EDT , Assessment & Plan Assessment/Plan (1) Hypotension: (2) Vertigo: (3) Type 2 diabetes mellitus: QUALIFIERS: Diabetes mellitus complication detail: with peripheralangiopathy without gangrene Diabetes mellitus complication status: with circulatory complication (4) Chest pain: (5) Lactic acidosis: (6) High anion gap metabolic acidosis: PLAN: Plan Acute hypotension Likely due to hypovolemia and drug effects. Received normal saline bolus at the emergency department. Gentle IV hydration continued. Hold home blood pressure medications. Trend blood pressures. Observe at progressive care units. Vertigo Order MRI to rule out central cause. Meclizine prn Valium5 mg PO Q8H PRN Lactic acidosis/high anion gap metabolic acidosis Lactic acid of 6.3. Repeat of 4.2 after fluid resuscitation. Anion gap of 17. CO2 of 20. No evidence of infection as review of urinalysis did not show infection. Impression of chest x-ray by radiology: No radiographic evidence of acute cardiopulmonary disease. Chest x-ray image was independently interpreted and I agree with radiology interpretation. The metformin could be contributing. Trend. Chest pain Cardiac cath in October 2022 was negative. Troponin was elevated at that time. Troponin on presentation normal. Trend. Trial of Protonix ordered. Observe on telemetry at progressive care unit. Diabetes mellitus Patient with hyperglycemia on presentation Jardiance continued continued. Metformin held Monitor Accu-Cheks Correction scale insulin ordered. Rash Present on presentation. Home doxycycline and methylprednisone continued. Monitor. DVT prophylaxis Subcutaneous Lovenox ordered. Charges/Coding Visit Charges Inpatient E&M: 75867 Init Hosp L3 04/10/23 0536 <Electronically signed by Young Kiran MD> Cosigner Signature (if applicable): CC: Dr. Young Kiran MD; Milana Garcia DO~ Signed [facility] Work Phone: 1(169) 363-887004-24-[address] Gaviria [facility] March 22, 2023 10:43pm Note Date/Time March 22, 2023 7:0 6pm [facility] Medical Records Department [address] [place] [id number] Emergency Department Summary 03/22/23 MR#: [id number] Acct: [id number] Name: JOSEPH RINCON Rep #:[id number] : 1975 47 From: Lauri Gaviria MD PCP: Milana Garcia DO Status:REG E R Location: ED HPI History of Present Illness Chief Complaint: Dizziness Detail of Chief Complaint: Patient defines dizziness as lightheadedness Informant: patient Onset/Context/Timing Onset: Hours Context: Sudden Onset Timing: Continuous Quality: Lightheadedness with documented temperature of 71/55 Location: Work Current Severity: Moderate Maximum Severity: Severe Worsened by: Upper Relieved by: Nothing Associated Symptoms Associated Symptoms: Tunnel vision Narrative Narrative: Patient is a 47-year-old woman who presents with dizziness, which she defines aslightheadedness. Patient denies fever, chills night sweats. She denies headache, visual, ocular auditory symptoms. She denies trouble speech or swallowing. She denies shortness of breath or chest pain. She denies abdominalpain or back pain. She denies nausea, vomiting or diarrhea. She denies dysuria, frequency, urgency or hematuria. She denies paresthesia, anesthesia ormotor weakness. She denies vertigo. She denies skin lesion. Prior similar symptoms: No Recent Illness/Hospitalization: No [facility] Medical History Acute lumbar myofascial strain Anxiety Depression Diabetes History of left heart catheterization (LHC) (~11/19/22) HTN (hypertension) Pancreatitis Sleep apnea Strain of left hip Home Medications metformin 500 mg tablet 500 ea PO BID DIABETES 10/31/22 [History Last Taken 11/17/22 21:30] metoprolol succinate 50 mg tablet,extended release 24 hr 50 ea PO DAILY BLOOD PRESSURE 10/31/22 [History Last Taken 11/17/22 09:00] lisinopril 40 mg tablet 40 mg PO DAILY BLOOD PRESSURE 11/18/22 [History Last Taken 11/17/22 09:00] amlodipine 2.5 mg tablet 5 mg PO DAILY #60 tabs 11/19/22 [Rx Last Taken Unknown] aspirin 81 mg chewable tablet 81 mg PO DAILY@0800 #30 tabs 11/19/22 [Rx Last Taken Unknown] bupropion HCl 150 mg 24 hr tablet, extended release 150 mg PO DAILY 01/21/23 [History Last Taken Unknown] empagliflozin 10 mg tablet (Jardiance) 10 mg PO DAILY 01/21/23 [History Last Taken Unknown] albuterol sulfate 90 mcg/actuation aerosol inhaler 2 puff inhalation Q6H PRN shortness of breath or wheezing #8.5 grams 02/12/23 [Rx Last Taken Unknown] citalopram 20 mg tablet 20 mg PO DAILY 03/22/23 [History Last Taken Unknown] Allergy/AdvReac Type Severity Reaction Status Date / Time No Known Allergies Allergy Verified 03/22/23 17:50 Family History Grandfather CVA (cerebral vascular accident) Diabetes Mother Cancer Father Hypertension Grandmother Hypertension Diabetes Surgical History H/O tooth extraction History of cholecystectomy plantar fasciitis release Social History (Updated 03/22/23 @ 19:[address] Lauri Gaviria MD) household members: spouse Smoking Status: Current every day smoker tobacco type: cigarettes alcohol intake: current alcohol intake frequency: a few times a month Alcohol type: hard liquor substance use type: does not use ROS ROS ED Constitutional Constitutional ED: Denies chills, fever(s), subjective, sweats or weight loss Eyes Eyes: Reports change in vision bilateral; Denies blurry vision or diplopia ENT ENT ED: Denies ear pain, rhinorrhea or sore throat Cardiovascular Cardiovascular: Denies chest pain, orthopnea, palpitations, paroxysmal nocturnaldyspnea or racing heartbeat Respiratory/Chest Respiratory/Chest: Denies cough, dyspnea, dyspnea on exertion, orthopnea or paroxysmal nocturnal dyspnea Gastrointestinal Gastrointestinal: Denies abdominal pain, constipation, diarrhea, melena, nausea or vomiting Genitourinary Genitourinary ED: Denies dysuria, hematuria or urinary frequency Musculoskeletal Musculoskeletal: Denies arthralgias, back pain, myalgias or neck pain Integumentary Denies Abrasions or rash Neurologic Neurologic: Reports weakness; Denies headache(s) or paresthesias Endocrine Endocrinology: Denies cold intolerance or heat intolerance Hematologic/Lymphatic Hematologic/Lymphatic: Reports systems reviewed and no addt'l complaints, exceptas documented EXAM Physical Exam Const Vital Signs: 03/22/23 17:49 03/22/23 18:31 03/22/23 18:39 Temperature 96.4 F L Temperature Source Temporal Pulse Rate 79 67 Respiratory Rate 24 H 16 Respiratory Effort Normal Respiratory Pattern Normal Blood Pressure 88/55 L 95/60 Blood Pressure Mean 66 71 Pulse Ox 97 99 Oxygen Delivery Method Room Air Room Air 03/22/23 20:09 03/22/23 21:25 03/22/23 22:25 Temperature Temperature Source Pulse Rate 71 69 76 Respiratory Rate 18 18 18 Respiratory Effort Respiratory Pattern Blood Pressure 101/66 106/59 L 107/62 Blood Pressure Mean 77 74 77 Pulse Ox 98 97 100 Oxygen Delivery Method Room Air Positive well nourished and well developed General Appearance ED: well developed and NAD; Negative for cyanotic, diaphoretic or pallor HEENT Reports dry mucous membranes HEENT Narrative: Head is atraumatic normocephalic. Pupils are equal round and reactive. Extraocular muscles are intact. Ears are normal. Nares are patent. Posterior pharynx is normal. Mouth ED: Yes dry mucous membranes Mouth: dry mucous membranes Eyes PERRL and EOMs intact bilaterally General Eye ED: Negative for pale conjunctiva or scleral icterus Neck no lymphadenopathy, supple and no JVD Chest Wall inspection of chest normal and palpation of chest normal Resp normal respiratory effort and clear to auscultation bilaterally Cardio regular rate, regular rhythm, S1 normal heart sound, S2 normal heart sound and no murmurs GI normal to inspection, nondistended, normoactive bowel sounds, non-tender, non-distended and no masses; Negative for hepatosplenomegaly Back/Spine no CVA tenderness Extremity Extremity Narrative: There is slight model lean and delayed capillary refill. General Extremety ED: Negative for edema or tenderness General Extremity: Negative for edema Neuro oriented x3, CN's II-XII intact bilaterally and no sensory deficits noted Sensorium / Orientation: alert Psych mental status grossly normal Skin No no rashes or lesions noted, no wounds and skin turgor normal Skin Narrative: Patient has mottling noted. General Skin Exam: Negative for elasticity normal, jaundice or pallor MDM MDM MDM Narrative Medical decision making narrative: Patient is hypotensive. There is no obvious reason why she is hypotensive is onno new meds. She denies symptoms of his suggest GI bleed or infectious process. Work-up included a CBC, polyp, UA Lab Data Attestation: I reviewed the patient's lab results. Lab results narrative: CBC is a normal. Comprehensive metabolic panel is remarkable for a creatinine of 1.67 with a GFR of 35. Glucose is slight elevated 146 with a normal CO2 and anion gap. Liver enzymes are normal. 1 L of normal saline was ordered. Patient's initial blood pressure supine was 88/55. Creatinine was normal October 2022 at 0.67. Creatinine was 0.9 01 January 2023. Today's creatinine is 1.67. Labs: Laboratory Results - last 24 hr 03/22/23 03/22/23 03/22/23 18:15 18:15 18:15 WBC 11.0 RBC 4.25 Hgb 13.6 Hct 41.5 MCV 97.6 MCH 32.0 MCHC 32.8 RDW Std Deviation 46.9 H RDW Coeff of Braxton 13.1 Plt Count 316 MPV 9.7 Immature Gran % (Auto) 0.500 Neut % (Auto) 64.4 Lymph % (Auto) 22.7 [place] % (Auto) 9.9 Eos % (Auto) 2.0 Baso % (Auto) 0.5 Absolute Neuts (auto) 7.1 Absolute Lymphs (auto) 2.49 Nucleated RBC % 0 Sodium 133 L Potassium 4.4 Chloride 105 Carbon Dioxide 24.0 Anion Gap 4 L BUN 18 Creatinine 1.67 H Estim Creat Clear Calc 36.74 Est GFR (MDRD) Af Amer 43 L Est GFR (MDRD) Non-Af 35 L BUN/Creatinine Ratio 10.8 Glucose 146 H Lactic Acid 1.4 Calcium 8.9 Total Bilirubin 0.30 AST 20 ALT 33 Alkaline Phosphatase 71 Total Protein 7.7 Albumin 4.0 Globulin 3.7 Albumin/Globulin Ratio 1.1 Urine Color Urine Clarity Urine pH Ur Specific [place] Urine Protein Urine Glucose (UA) Urine Ketones Urine Occult Blood Urine Nitrite Urine Bilirubin Urine Urobilinogen Ur Leukocyte Esterase Urine RBC Urine WBC Ur Squamous Epith Cells Amorphous Sediment Urine Bacteria Urine Mucus 03/22/23 20:20 WBC RBC Hgb Hct MCV MCH MCHC RDW Std Deviation RDW Coeff of Braxton Plt Count MPV Immature Gran % (Auto) Neut % (Auto) Lymph % (Auto) [place] % (Auto) Eos % (Auto) Baso % (Auto) Absolute Neuts (auto) Absolute Lymphs (auto) Nucleated RBC % Sodium Potassium Chloride Carbon Dioxide Anion Gap BUN Creatinine Estim Creat Clear Calc Est GFR (MDRD) Af Amer Est GFR (MDRD) Non-Af BUN/Creatinine Ratio Glucose Lactic Acid Calcium Total Bilirubin AST ALT Alkaline Phosphatase Total Protein Albumin Globulin Albumin/Globulin Ratio Urine Color Yellow Urine Clarity Sl. Cloudy Urine pH 6.5 Ur Specific [place] 1.005 Urine Protein Negative Urine Glucose (UA) 1000 H Urine Ketones Negative Urine Occult Blood Negative Urine Nitrite Negative Urine Bilirubin Negative Urine Urobilinogen Normal Ur Leukocyte Esterase 100 H Urine RBC 0 SEEN Urine WBC 5-10 SEEN Ur Squamous Epith Cells 0-5 SEEN Amorphous Sediment 1+ URATE Urine Bacteria 0 SEEN Urine Mucus 0 SEEN EKG Initial EKG: Attestation: I personally reviewed and interpreted this EKG as follows: Interpretation: Sinus Rhythm (Rate is 68 and EKG is normal. ME interval is 130 ms. Cures duration 86 ms. QT duration 408 ms. [place] is normal.) Treatment and Re-Evaluation :: Patient did ambulate after first liter. She states she did get lightheaded walking back to the room. Most recent blood pressure is 101/66. Patient statesher systolic blood pressure is normally 130+. Second liter of normal saline wasordered. Patient was reassessed at 2238. Blood pressure was 118. Patient was able to walk to the restroom without symptoms. She was instructed to follow-up with jorge to have her blood work reassessed since her creatinine was elevated. Discharge Plan Triage Chief Complaint: Dizziness ED Provider: Lauri Gaviria Dx/Rx/DC Orders Clinical Impression: Acute hypotension, Type 2 diabetes mellitus, Hypertriglyceridemia, HTN (hypertension), Acute kidney insufficiency Instructions: ED Low Blood Pressure, All Causes, ED Renal Insufficiency Prescriptions: No Action metformin 500 mg tablet 500 ea PO BID metoprolol succinate 50 mg tablet extended release 24 hr 50 ea PO DAILY albuterol sulfate 90 mcg/actuation HFA aerosol inhaler 2 puff inhalation Q6H PRN (Reason: shortness of breath or wheezing) Qty: 8.5 0RF lisinopril 40 mg tablet 40 mg PO DAILY amlodipine 2.5 mg Tablet 5 mg PO DAILY Qty: 60 0RF aspirin 81 mg Tablet,Chewable 81 mg PO DAILY@0800 Qty: 30 0RF bupropion HCl 150 mg tablet extended release 24 hr 150 mg PO DAILY Label Comments: take 1 tablet by mouth once daily Jardiance 10 mg tablet 10 mg PO DAILY Label Comments: take 1 tablet by mouth once daily citalopram 20 mg tablet 20 mg PO DAILY Label Comments: take 1 tablet by mouth once daily Primary Care Provider: Milana Garcia Referrals: Milana Garcia, DO [Primary Care Provider] - 3-5 Days Activity Restrictions/Additional Instructions: Call your doctor in the morning to have repeat blood work in 3 to 5 days. Let them know that your creatinine is elevated. Disposition Disposition: Home, Self Care What to do if you have Problems For any increased pain, shortness of breath, bleeding, nausea or vomiting, chestpain, or any unexpected problems, contact your Primary Care Provider. Call [facility] ([phone]) or report to the closest Emergency Room. Call 911 if necessary. 03/22/232242 <Electronically signed by Lauri Gaviria MD> Cosigner Signature (if applicable): CC: Milana Garcia, DO ~ Signed [facility] Work Phone: 1(361) 469-672704-24-2023 Hospital Discharge instructions Additional Instructions Call your doctor in the morning to have repeat blood work in 3 to 5 days. Let them know that your creatinine is elevated.[facility] Work Phone: 1(987) 347-197310-09-2022 Hospital Discharge instructions Additional Instructions Plenty of fluids and rest. No alcohol for the next 48 hours. No driving for the next 24 hours. Follow-up with your primary care physician. They can get an EEG to further evaluate you for possible seizures. Your labs and CAT scan tonight were unremarkable other than your alcohol level that was 237.[facility] Work Phone: 1(553) 832-388208-23-2022 Instructions* Patient Instructions* Samantha Deleon APRN.CASHIER CREDIT - 07/21/2022 7:38 PM EDT SCIATICA: Your exam shows you have sciatica, a condition most often seen in patients with disc disease of thelower back. Sciatica causes pain to radiate from [...] an important part of management. Please call yourdoctor, a back specialist, or the emergency room right away if you notice increased pain, weakness,or numbness in your legs, or if you have any difficulty with bladder or bowel control. documented in [facility] encounterReg[facility] History of Present illness Narrative* Sabrina Hairston RT(R) - 07/21/2022 7:20 PM EDT Radiology Service Progress Note PATIENT NAME: Joseph Rincon DATE OF SERVICE: July 21, 2022 TIME: 7:16 PM PATIENT IDENTITY VERIFICATION COMPLETED USING TWO (2) IDENTIFIERS: Name and Date of confirmedby patient verbally. FALL SCREENING: Has the patient [...] 21, 2022 7:16 PM documented in this encounterReg[facility]-23-2022 History of Present illness Narrative* Samantha Deleon APRN.CNP - 07/21/2022 7:10 PM EDT This note was created using NoteWriter. Subjective [...] weakness Denies using homeopathic or OTC medications [employer]OCHET [employer]ADER. The history is provided by the patient. No peoplesoft hr developer was used. Musculoskeletal Problem This is a [...] vomiting or weakness. Nothing aggravates the symptoms. Shehas tried nothing for the symptoms. The treatment [...] Flexeril Follow up with PCP Samantha Deleon APRN.CASHIER CREDIT documented in this encounterReg[facility]-19-2019 History of Past illness Narrative* Problem Noted Date Resolved Date Rash and [...] of this encounter (statuses as of 07/21/2022) [facility] Author [facility]. Johnson [facility] April 11, 2023 9:49am Note Date/Time April 11, 2023 9:39a m [facility] Medical Records Department [address] [place] [address] Discharge Summary 04/11/23 0936 MR#: [id number] Acct: [id number] Name: JOSEPH RINCON Rep #:[id number] : 1975 48 From: Radha Johnson DO PCP: Milana Garcia DO Status:ADM I N Location: [place] [address] Providers Date of Admission: 04/10/23 Date of Discharge: 04/11/23 Primary Care Physician: Milana Garcia DO Reason For Visit: ACUTE HYPOTENSION, VERTIGO, LACTIC ACIDOSIS Diagnosis Discharge Diagnosis (1) Hypotension: Status: Acute Code(s): I95.9 - Hypotension, unspecified (2) Vertigo: Status: Acute Code(s): R42 - Dizziness and giddiness (3) Type 2 diabetes mellitus: Status: Chronic Code(s): E11.9 - Type 2 diabetes mellitus without complications Qualifiers: Diabetes mellitus complication status: with circulatory complication Diabetes mellitus complication detail: with peripheral angiopathy without gangrene (4) Chest pain: Status: Inactive (5) Lactic acidosis: Status: Acute Code(s): E87.20 - Acidosis, unspecified (6) High anion gap metabolic acidosis: Status: Acute Code(s): E87.29 - Other acidosis Medications at Discharge Home Medications metformin 500 mg tablet 500 ea PO BID DIABETES 10/31/22 metoprolol succinate 50 mg tablet,extended release 24 hr 50 ea PO DAILY BLOOD PRESSURE 10/31/22 lisinopril 40 mg tablet 40 mg PO DAILY BLOOD PRESSURE 11/18/22 aspirin 81 mg chewable tablet 81 mg PO DAILY@0800 #30 tabs 11/19/22 bupropion HCl 150 mg 24 hr tablet, extended release 150 mg PO DAILY 01/21/23 empagliflozin 10 mg tablet (Jardiance) 10 mg PO DAILY 01/21/23 albuterol sulfate 90 mcg/actuation aerosol inhaler 2 puff inhalation Q6H PRN shortness of breath or wheezing #8.5 grams 02/12/23 citalopram 20 mg tablet 20 mg PO DAILY 03/22/23 budesonide-formoterol HFA 80 mcg-4.5 mcg/actuation aerosol inhaler (Symbicort) 1puff inhalation BID 04/09/23 doxycycline monohydrate 100 mg capsule 100 mg PO BID 04/09/23 levocetirizine 5 mg tablet 5 mg PO DAILY 04/09/23 methylprednisolone 8 mg tablet (Medrol) 8 mg PO DAILY 04/09/23 montelukast 10 mg tablet (Singulair) 10 mg PO DAILY 04/09/23 pantoprazole 40 mg tablet,delayed release 40 mg PO DAILY #30 tabs 04/11/23 Hospital Course Operations None Procedures EKG and - (MRI brain/chest x-ray) Summary of Care Provided Minutes Spent on Discharge: 37 Hospital Course: Ms Braucher a 48-year-old white female with a past medical history of diabetes who presented to the emergency department early on the morning of 04/10/2023 complaining of chest pain that started a few hours prior to presentation.? She stated it was aching and had been intermittent for the last 2 to 3 days.? She reported that Pepto-Bismol and Tums appeared to help her with her symptoms.? Shealso complained of some lightheadedness and then later complained of vertigo.? She checked her blood pressure at home and was found to be low with systolics inthe 70s to 80s and diastolics in the 40s and heart rate was in the 100s.? She had some nausea and vomiting and multiple loose stools the day prior to presentation.? She is on metformin and Jardiance for her diabetes at home.? On presentation she had a significant lactic acidosis with a lactic acid level of 6.3.? With fluids resuscitation and discontinuation of her metformin, it is improved.? She also was found to have an LUI with a serum creatinine of 1.44.? Isuspect she was dehydrated due to her nausea, vomiting, and diarrhea 2 days prior.? An MRI was performed with her vertigo and was negative for any acute findings.? She had a heart catheterization on 11/19/2022 which was completely normal and showed no signs of any obstruction or coronary artery disease. Her EKG was unremarkable and cardiac enzymes were cycled this hospitalization.? I suspect her lactic acid is related to her dehydration and metformin use.? I haveinstructed her to hold her metformin if she has nausea vomiting and diarrhea with decreased oral intake and to check her blood pressures if she becomes ill and hold her antihypertensives if her blood pressure drops below 130/80 consistently and not to restart them until she is above 130/80 consistently. Protonix will be initiated as it sounds like she has some GERD type symptoms that are causing some issues for her at baseline. She is also on doxycycline which may be contributing to her gastrointestinal discomfort. I have asked her to take her doxycycline with a full glass of water and sit upright for at least 30 minutes following to avoid any further issues the doxycycline may be causing. She is to follow-up with her primary care physician within the next 2 weeks. Idid ask her to let them know if her GI complaints did not resolve with the Protonix and the instructions for the doxycycline as further work-up may be needed. Prescription for Protonix was sent to her local pharmacy. Discharge diagnoses: Chest pain-resolved Lactic acidosis-resolved LUI-resolved Nausea, vomiting, diarrhea-resolved Hypotension-resolved Dehydration-resolved Hypertension DM-2 Seasonal allergies Reflux Depression Physical Exam Const alert, oriented x3, no apparent distress, average body habitus, healthy appearing and well nourished Constitutional Narrative: Middle-aged, white female, lying in bed sleeping but awakens easily at the time of my evaluation, appears comfortable nontoxic indicates she is feeling much better oral intake has been good General Appearance: cooperative, comfortable, well kempt and well developed Orientation / Consciousness: awake, oriented to person, oriented to place and oriented to time Exam Limitations: no limitations Nutritional Appearance: overweight HEENT normocephalic, head/scalp atraumatic, hearing grossly normal bilaterally and moist oral mucous membranes HEENT Narrative: Mallampati 2-3, no thrush Eyes PERRL, EOMs intact bilaterally and conjunctivae normal Eyes Narrative: No scleral icterus Neck no lymphadenopathy and supple Neck Narrative: Trachea midline, no thyroid enlargement Resp normal respiratory effort, no retractions, no use of accessory muscles and clearto auscultation bilaterally Auscultation: Negative for rales, rhonchi or wheezes Cardio regular rate, regular rhythm, S1 normal heart sound, S2 normal heart sound, no murmurs, no rub, no gallops and no clicks GI normal to inspection, nondistended, normoactive bowel sounds and soft to palpation Extremity no clubbing, cyanosis or edema Extremity Narrative: 2+ pedal pulses Skin no rashes or lesions noted, no wounds, skin turgor normal and no jaundice Neuro oriented x3, CN's II-XII intact bilaterally, moves all extremities, no focal motor deficits and no sensory deficits noted Speech: speech normal Psych Psych Narrative: Affect is somewhat flat but mood seems to be normal with good eye contact Weight / BMI Weight Weight: 72.5 kg Body Mass Index (BMI) 27.4 ABG / Lab / Microbiology Data Result Diagrams: 04/11/23 06:10 04/11/23 06:10 Laboratory: Laboratory Results - last 24 hr 04/10/23 11:29: POC Glucose 205 H 04/10/23 16:30: POC Glucose 234 H 04/10/23 22:30: POC Glucose 174 H 04/11/23 06:10: WBC 11.6 H, RBC 3.87 L, Hgb 12.6, Hct 38.9, MCV 100.5 H, MCH 32.6 H, MCHC 32.4, RDW Std Deviation 47.8 H, RDW Coeff of Braxton 13.1, Plt Count 246, MPV 9.7, Immature Gran % (Auto) 0.300, Neut % (Auto) 67.1, Lymph % (Auto) 23.8, [place] % (Auto) 7.8, Eos % (Auto) 0.7, Baso % (Auto) 0.3, Absolute Neuts (auto) 7.8 H, Absolute Lymphs (auto) 2.75, Nucleated RBC % 0 04/11/23 06:10: Sodium 137, Potassium 4.1, Chloride 105, Carbon Dioxide 24.0, Anion Gap 8, BUN 19 H, Creatinine 0.82, Estim Creat Clear Calc 74.03, Est GFR (MDRD) Af Amer 97, Est GFR (MDRD) Non-Af 80, BUN/Creatinine Ratio 23.2 H, Glucose 143 H, Calcium 8.8 04/11/23 06:10: Lactic Acid 0.6 04/11/23 06:24: POC Glucose 95 Radiography Diagnostic Testing: Radiology Impression Brain MRI 04/10/23 03:41 IMPRESSION: Motion artifact. Unremarkable examination without evidence for significant signal abnormality in the brain or acute infarct. Electronically Signed: Diana Floyd MD at 11:21 EDT Reading Location ID and State: [address] [place] [address] Tel , Service support , D/C Instructions Discharge Diet: Low fat / Low cholesterol and 1800 Calorie Control Diet Discharge Activity: Return to Normal Activity Return to work on: 04/12/23 Meaningful Use Info Meaningful Use Diagnoses (Choose all that apply): None applicable Discharge Plan Admission Admit Date/Time: 04/10/23 02:20 Primary Reason for Your Visit: Chest Pain/Low BP Attending Provider: Radha Johnson Primary Care Provider: Milana Garcia Consulting Providers: Young Kiran Instructions Additional Instructions / Restrictions: 1. When having nausea, vomiting, or diarrhea and oral intake is decreased hold metformin 2. Hold blood pressure medication if when you are ill your blood pressure dropsto below 130/80 and do not restart until it goes above this consistently 3. Please be sure to take the antibiotic, doxycycline, with a full glass of water and do not lie flat for 30 minutes following taking this medication. Thismay be contributing to your nausea. 4. We gave you a prescription for Protonix. As discussed this is to help with acid reflux and your stomach issues. If your symptoms do not improve in the next 2 to 4 weeks or worsen before that while on the medication please follow-upwith your primary care physician Discharge Orders/Prescriptions Prescriptions: New pantoprazole 40 mg Tablet,Delayed Release (Dr/Ec) 40 mg PO DAILY Qty: 30 1RF Continued metformin 500 mg tablet 500 ea PO BID metoprolol succinate 50 mg tablet extended release 24 hr 50 ea PO DAILY albuterol sulfate 90 mcg/actuation HFA aerosol inhaler 2 puff inhalation Q6H PRN (Reason: shortness of breath or wheezing) Qty: 8.5 0RF lisinopril 40 mg tablet 40 mg PO DAILY aspirin 81 mg Tablet,Chewable 81 mg PO DAILY@0800 Qty: 30 0RF bupropion HCl 150 mg tablet extended release 24 hr 150 mg PO DAILY Label Comments: take 1 tablet by mouth once daily Jardiance 10 mg tablet 10 mg PO DAILY Label Comments: take 1 tablet by mouth once daily citalopram 20 mg tablet 20 mg PO DAILY Label Comments: take 1 tablet by mouth once daily doxycycline monohydrate 100 mg Capsule 100 mg PO BID methylprednisolone [Medrol] 8 mg Tablet 8 mg PO DAILY montelukast [Singulair] 10 mg Tablet 10 mg PO DAILY levocetirizine 5 mg Tablet 5 mg PO DAILY budesonide-formoterol [Symbicort] 80-4.5 mcg/actuation Hfa Aerosol Inhaler 1 puff INHALATION BID Referrals / Follow Up: Milana Garcia DO [Primary Care Provider] - Within 2 Weeks Disposition Disposition (needs filled in before D/C Order can be placed): Home, Self Care Charges/Coding Visit Charges Inpatient E&M: 78091 Disch Hosp >30min 04/11/23 0918 <Electronically signed by Radha Johnson DO> Cosigner Signature (if applicable): CC: Dr. Radha Johnson DO; Milana Garica, DO~ Signed [facility] Work Phone: Evaluation noteNo assessment information available [facility] Work Phone: evaluation note* Diagnosis Hip pain, acute, left- Primary [facility] Diagnosis Onset Date Resolution Status Bilateral acute otitis media acute [facility] Work Phone: Evaluation note* Diagnosis Onset Date Resolution Status Acute lumbar myofascial strain acute Strain of left hip acute Acute bronchitis acute ACS (acute coronary syndrome) acute Hypertensive urgency acute Hypertriglyceridemia acute Non-ST elevated myocardial infarction acute Hypertension chronic Type 2 diabetes mellitus [facility] Work Phone: Evaluation note* Diagnosis Onset Date Resolution Status Acute lumbar myofascial strain acute Strain of left hip acute Acute bronchitis acute ACS (acute coronary syndrome) acute Hypertensive urgency acute Hypertriglyceridemia acute Non-ST elevated myocardial infarction acute HTN (hypertension) chronic Type 2 diabetes mellitus [facility] Work Phone: Evaluation note* Diagnosis Onset Date Resolution Status Acute bronchitis acute [facility] Work Phone: Evaluation note* Diagnosis Onset Date Resolution Status Acute bronchitis acute High anion gap metabolic acidosis acute Hypotension acute Lactic acidosis acute Vertigo acute Type 2 diabetes mellitus [facility] Work Phone: Evaluation note* Diagnosis Onset Date Resolution Status Acute bronchitis acute High anion gap metabolic acidosis resolved Hypotension resolved Lactic acidosis resolved Vertigo resolved [facility] Work Phone: Evaluation note* Diagnosis Onset Date Resolution Status Acute bronchitis acute High anion gap metabolic acidosis resolved Hypotension resolved Lactic acidosis resolved Vertigo resolved Hypertriglyceridemia acute Palpitations acute Syncope and collapse acute HTN (hypertension) chronic Tobacco use disorder [facility] Work Phone: Evaluation note* Diagnosis Onset Date Resolution Status High anion gap metabolic acidosis resolved Hypotension resolved Lactic acidosis resolved Vertigo resolved Hypertriglyceridemia acute Palpitations acute Syncope and collapse acute HTN (hypertension) chronic Tobacco use disorder chronic Acute sinusitis acute [facility] Work Phone: Evaluation note* Diagnosis Onset Date Resolution Status Hypertriglyceridemia acute Palpitations acute Syncope and collapse acute HTN (hypertension) chronic Tobacco use disorder chronic Acute sinusitis acute [facility] Work Phone: Evaluation note* Diagnosis Onset Date Resolution Status Hypertriglyceridemia acute Palpitations acute Syncope and collapse acute HTN (hypertension) chronic Tobacco use disorder chronic Acute sinusitis acute Hypertriglyceridemia acute Palpitations acute HTN (hypertension) chronic Tobacco use disorder chronic [facility] Work Phone: Evaluation note* Diagnosis Onset Date Resolution Status Acute sinusitis acute Hypertriglyceridemia acute Palpitations acute HTN (hypertension) chronic Tobacco use disorder chronic Contact with or exposure to other viral diseases acute URI (upper respiratory infection) acute [facility] Work Phone: Evaluation note* Diagnosis Onset Date Resolution Status Plantar fasciitis of left foot acute Strain of left foot acute [facility] Work Phone: Evaluation note* Diagnosis Sinus congestion- Primary Other diseases of nasal cavity and sinuses Wheezing Nausea Nausea alone [facility] Diagnosis Insomnia- Primary Insomnia, unspecified MOUNIKA [...] pain, acute, left [facility] Discharge instructions Additional Instructions Please follow-up with your PCP and pain management. Return for worsening of symptoms.[facility] Work Phone: Reason for referral (narrative)* Diagnostic Procedure Only (Urgent) - Pending Review Specialty Diagnoses / Procedures Referred By Contac t Referred To Contact XR IMAGING Diagnoses Hip pain, acute, left Procedures XR HIP GENERAL 3V PELV/AP/LAT LEFT RADEX HIP UNILATERAL WITH PELVIS 2-3 VIEWS Samantha Deleon APRN.[employer] [address] [place] [address] Xr Imaging Referral ID Status Reason Start Date Expiration Date Visits Requested Visits Authorized [id number] Pending Review Auto-Generat ed Referral 07/21/2022 08/20/2023 1 1 [facility] for referral (narrative)* Diagnostic Procedure Only (Urgent) - Closed Specialty Diagnoses / Procedures Referred By Contac t Referred To Contact XR IMAGING Diagnoses Hip pain, acute, left Procedures XR HIP GENERAL 3V PELV/AP/LAT LEFT RADEX HIP UNILATERAL WITH PELVIS 2-3 VIEWS Samantha Deleon APRN.[employer] [address] [place] [address] [place] [id number] Referral ID Status Reason Start Date Expiration Date V isits Requested Visits Authorized [id number] Closed Auto-Generate d Referral 07/21/2022 08/20/2023 1 1 [facility] for referral (narrative)No reason for referral [facility] Work Phone: Reason for visit Narrative* Diagnostic Procedure Only (Urgent) - Closed Specialty Diagnoses / Procedures Referred By Contac t Referred To Contact XR IMAGING Diagnoses Hip pain, acute, left Procedures XR HIP GENERAL 3V PELV/AP/LAT LEFT RADEX HIP UNILATERAL WITH PELVIS 2-3 VIEWS Samantha Deleon APRN.[employer] [address] [facility] [place] [id number] [place] [id number] Referral ID Status Reason Start Date Expiration Date V isits Requested Visits Authorized [id number] Closed Auto-Generate d Referral 07/21/2022 08/20/2023 1 1 [facility] Summary Purpose Family History No Family History Records Found Relationship Condition Age at Onset Recorded Date/T thien grandfather Cerebrovascular accident (CVA) Unknown Diabetes mellitus Unknown mother Malignant neoplasm Unknown father Hypertension Unknown grandmother Hypertension Unknown Advance Directives No Advanced Directives Records Found Advance Directive Response Recorded Date/ Time Advance Directives No February 23 8:55am Living Will No February 22, 2022 12:30pm Power of Aircraft Structural Repairer No February 22 12:30pm Advance Directive Response Recorded Date/ Time Advance Directives No February 23 8:55am Living Will No September 05 9:14pm Power of Aircraft Structural Repairer No September 05 9:14pm Advance Directive Response Recorded Date/ Time Advance Directives No February 23 7:55am Living Will No November 18 1:54pm Power of Aircraft Structural Repairer No November 18, 2022 1:54pm Advance Directive Response Recorded Date/ Time Advance Directives No February 23 7:55am Living Will No January 21 12:06pm Power of Aircraft Structural Repairer No January 21, 2023 12:06pm Advance Directive Response Recorded Date/ Time Advance Directives No February 23 8:55am Living Will No March 22, 2023 6:38pm Power of Aircraft Structural Repairer No March 22 6:38pm Advance Directive Response Recorded Date/ Time Advance Directives No February 23 8:55am Living Will No April 09, 2023 1 0:50pm Power of Aircraft Structural Repairer No April 09, 2023 10:50pm Advance Directive Response Recorded Date/ Time Advance Directives No February 23 8:55am Living Will No April 10, 2023 3 :53am Power of Aircraft Structural Repairer No April 10, 2023 3:53am Advance Directive Response Recorded Date/ Time Advance Directives No March 28th, 2 021 8:55am Living Will No May 04, 2023 9 :16pm Power of Aircraft Structural Repairer No May 04, 2023 9:16pm Advance Directive Response Recorded Date/ Time Advance Directives No February 23 021 8:55am Living Will No May 24, 2023 9:36pm Power of Aircraft Structural Repairer No May 24 9:36pm Advance Directive Response Recorded Date/ Time Advance Directives No February 23 2 021 8:55am Living Will No July 29 2:27pm Power of Aircraft Structural Repairer No July 29, 2 023 2:27pm Advance Directive Response Recorded Date/ Time Advance Directives No February 23 021 8:55am Living Will No August 23, 2023 12:07pm Power of Aircraft Structural Repairer No July 12:07pm Advance Directive Response Recorded Date/ Time Advance Directives No February 23 7:55am Living Will No October 10, 4:19pm Power of Aircraft Structural Repairer No October 10, 2023 4:19pm Advance Directive Response Recorded Date/ Time Advance Directives No February 23 2 021 8:55am Living Will No January 24 5:38pm Power of Aircraft Structural Repairer No January 24, 2024 5:38pm Advance Directive Response Recorded Date/ Time Do you have a Healthcare Power of Aircraft Structural Repairer? No April 04, 2025 11:50am Advance Directives No July 2:01pm Advance Directive Response Recorded Date/ Time Do you have a Healthcare Power of Aircraft Structural Repairer? No April 11, 2025 10:12pm Do you have a Healthcare Power of Aircraft Structural Repairer? No April 04, 2025 11:50am Advance Directives No July 2:01pm Advance Directive Response Recorded Date/ Time Do you have a Healthcare Power of Aircraft Structural Repairer? No April 11, 2025 10:12pm Do you have a Healthcare Power of Aircraft Structural Repairer? No April 04, 2025 11:50am Do you have a Healthcare Power of Aircraft Structural Repairer? No April 26, 2025 1:50pm Advance Directives No July 2:01pm Chief Complaint and Reason for Visit Chief Complaint general illness Chief Complaint EARACHE IN BOTH EARS , SORE THROAT, HEADACHE seizure Reason for Visit Bilateral acute otit is media Chief Complaint seizure LEFT HIP PAIN/W/O INJURY COUGH, SORE THROAT NSTEMI NSTEMI NSTEMI NSTEMI NSTEMI Reason for Visit Acute lumbar myofasc ial strain Strain of left hip Acute bronchitis ACS (acute coronary syndrome) Hypertensive urgency Hypertriglyceridemia Non-ST elevated myocardial infarction Hypertension Type 2 diabetes mellitus Chief Complaint LEFT HIP PAIN/W/O IN JURY COUGH, SORE THROAT NSTEMI NSTEMI NSTEMI NSTEMI NSTEMI chest pain Reason for Visit Acute lumbar myofasc ial strain Strain of left hip Acute bronchitis ACS (acute coronary syndrome) Hypertensive urgency Hypertriglyceridemia Non-ST elevated myocardial infarction HTN (hypertension) Type 2 diabetes mellitus Chief Complaint chest pain SORE THROAT, COUGH, FATIGUE, DIZZINESS Reason for Visit Acute bronchitis Chief Complaint chest pain SORE THROAT, COUGH, FATIGUE, DIZZINESS COPD ACUTE HYPOTENSION, VERTIGO, LACTIC ACIDOSIS Reason for Visit Acute bronchitis High anion gap metabolic acidosis Hypotension Lactic acidosis Vertigo Type 2 diabetes mellitus Chief Complaint chest pain SORE THROAT, COUGH, FATIGUE, DIZZINESS COPD ACUTE HYPOTENSION, VERTIGO, LACTIC ACIDOSIS ACUTE HYPOTENSION, VERTIGO, LACTIC ACIDOSIS Reason for Visit Acute bronchitis High anion gap metabolic acidosis Hypotension Lactic acidosis Vertigo Type 2 diabetes mellitus Chief Complaint chest pain SORE THROAT, COUGH, FATIGUE, DIZZINESS COPD ACUTE HYPOTENSION, VERTIGO, LACTIC ACIDOSIS CP ADMIT ACUTE HYPOTENSION, VERTIGO, LACTIC ACIDOSIS WEAKNESS, DIZZINESS, Reason for Visit Acute bronchitis High anion gap metabolic acidosis Hypotension Lactic acidosis Vertigo Chief Complaint chest pain SORE THROAT, COUGH, FATIGUE, DIZZINESS COPD ACUTE HYPOTENSION, VERTIGO, LACTIC ACIDOSIS CP ADMIT ACUTE HYPOTENSION, VERTIGO, LACTIC ACIDOSIS WEAKNESS, DIZZINESS, Hypertension/lightheadness Reason for Visit Acute bronchitis High anion gap metabolic acidosis Hypotension Lactic acidosis Vertigo Hypertriglyceridemia Palpitations Syncope and collapse HTN (hypertension) Tobacco use disorder Chief Complaint SORE THROAT, COUGH, FATIGUE, DIZZINESS COPD ACUTE HYPOTENSION, VERTIGO, LACTIC ACIDOSIS CP ADMIT ACUTE HYPOTENSION, VERTIGO, LACTIC ACIDOSIS WEAKNESS, DIZZINESS, Hypertension/lightheadness SYNCOPE Reason for Visit Acute bronchitis High anion gap metabolic acidosis Hypotension Lactic acidosis Vertigo Hypertriglyceridemia Palpitations Syncope and collapse HTN (hypertension) Tobacco use disorder Chief Complaint COPD ACUTE HYPOTENSION, VERTIGO, LACTIC ACIDOSIS CP ADMIT ACUTE HYPOTENSION, VERTIGO, LACTIC ACIDOSIS WEAKNESS, DIZZINESS, Hypertension/lightheadness SYNCOPE SYNCOPE STEFFANY TO READ CONGESTION, SORE THROAT, COUGH EORDER Reason for Visit High anion gap metab olic acidosis Hypotension Lactic acidosis Vertigo Hypertriglyceridemia Palpitations Syncope and collapse HTN (hypertension) Tobacco use disorder Acute sinusitis Chief Complaint COPD ACUTE HYPOTENSION, VERTIGO, LACTIC ACIDOSIS CP ADMIT ACUTE HYPOTENSION, VERTIGO, LACTIC ACIDOSIS WEAKNESS, DIZZINESS, Hypertension/lightheadness SYNCOPE SYNCOPE STEFFANY TO READ CONGESTION, SORE THROAT, COUGH EORDER CHEST PAIN Reason for Visit High anion gap metab olic acidosis Hypotension Lactic acidosis Vertigo Hypertriglyceridemia Palpitations Syncope and collapse HTN (hypertension) Tobacco use disorder Acute sinusitis Chief Complaint WEAKNESS, DIZZINESS, Hypertension/lightheadness SYNCOPE SYNCOPE STEFFANY TO READ CONGESTION, SORE THROAT, COUGH EORDER CHEST PAIN NAUSEA Reason for Visit Hypertriglyceridemia Palpitations Syncope and collapse HTN (hypertension) Tobacco use disorder Acute sinusitis Chief Complaint WEAKNESS, DIZZINESS, Hypertension/lightheadness SYNCOPE SYNCOPE STEFFANY TO READ CONGESTION, SORE THROAT, COUGH EORDER CHEST PAIN NAUSEA 3 M FU EORDER FROM JIM MANRIQUEZ ALSO Reason for Visit Hypertriglyceridemia Palpitations Syncope and collapse HTN (hypertension) Tobacco use disorder Acute sinusitis Hypertriglyceridemia Palpitations HTN (hypertension) Tobacco use disorder Chief Complaint CONGESTION, SORE THR OAT, COUGH EORDER CHEST PAIN NAUSEA 3 M FU EORDER FROM JIM MANRIQUEZ ALSO SORE THROAT/BILAT EAR PAIN RIGHT EAR PAIN nausea/vomitting/diarrnea, hypotension, dizzy,CP STOOL SAMPLE ONLY COUGH/CONGESTION/BILAT EAR/SORE THROAT Reason for Visit Acute sinusitis Hypertriglyceridemia Palpitations HTN (hypertension) Tobacco use disorder Contact with or exposure to other viral diseases URI (upper respiratory infection) Chief Complaint chest pain L FOOT PAIN xray Reason for Visit Plantar fasciitis of left foot Strain of left foot Chief Complaint Admit Date PALPITATIONS April 04, 2025 10:24a m Chief Complaint Admit Date PALPITATIONS April 04, 2025 10:24a m fall April 11, 2025 9:29p m Chief Complaint Admit Date PALPITATIONS April 04, 2025 10:24a m fall April 11, 2025 9:29p m ACUTE PANCREATITIS April 26, 2025 5:13p m Reason for Visit Admit Date Hypokalemia April 26, 2025 5:13p m Intractable abdominal pain April 26 5:13pm Nausea & vomiting April 26, 2025 5:13p m Pancreatitis April 26, 2025 5:13p m Additional Source Comments <item> Privacy Markings (unrecogniz ed section and content) Section Author: Yenifer Bowman PROHIBITION ON REDISCLOSURE OF CONFIDENTIAL INFORMATION This notice accompanies a disclosure of information concerning a client made to you with the consent of such client. INFORMATION SOURCE (unrecogn ized section and content) DATE CREATED AUTHOR 06/16/2021 [facility] DATE CREATED AUTHOR AUTHOR'S ORGANIZ ATION 04/24/2024 [facility] DATE CREATED AUTHOR AUTHOR'S ORGANIZ ATION 05/03/2025 [facility] Goals (unrecognized section and content) Goals may be documented in a n alternate sectionGoals may be documented in an alternate sectionGoals may be documented in an alternate sectionGoals may be documented in an alternate sectionGoals may be documented in an alternate sectionGoals may be documented in an alternate sectionGoals may be documented in an alternate sectionGoals may be documented in an alternate sectionGoals may be documented in an alternate sectionGoals may be documented in an alternate sectionGoals may be documented in an alternate section Source Comments (unrecognize d section and content) In the event this informatio n is protected by the Federal Confidentiality of Alcohol and Drug Abuse Patient Records regulations: The Federal rules restrict any use of the information to criminally investigate or prosecute any alcohol or drug abuse patient.[facility] the event this information is protected by the Federal Confidentiality of Alcohol and Drug Abuse Patient Records regulations: The Federal rules restrict any use of the information to criminally investigate or prosecute any alcohol or drug abuse patient.[facility] the event this information is protected by the Federal Confidentiality of Alcohol and Drug Abuse Patient Records regulations: The Federal rules restrict any use of the information to criminally investigate or prosecute any alcohol or drug abuse patient.[facility] Reason for Visit (unrecogniz ed section and content) Reason Comments left hip pain X 3 days-cannot reca ll an injury Reason Comments Sinus Problem Nasal congestion, dr garland slight sore throat, nausea, cough, wheezing x 1 day Care Teams (unrecognized sec tion and content) Edge Burnisher Relationship Specialty Start Date End Date Ihsan Aguilar DO PCP - General Family Practice 10/22/20 Team Status: Active Member Role Status Dates Dr. Abbe Clark MD Family Provider Active Milana Garcia DO Primary Care Provider Active Team Status: Inactive Member Role Status Dates Dr. Calvin Waldrop MD Primary Care Provider, Referring Provider Active Daniel SMITH, PA Attending Provider Active Team Status: Inactive Member Role Status Dates Dr. Calvin Waldrop MD Primary Care Provider, Referring Provider Active Cassandra SMITH PA Attending Provider Active Team Status: Active Member Role Status Dates Dr. Calvin Waldrop MD Primary Care Provider Active Dr. Saumya Tavares DO Emergency Provider Active Dr. Jay Kay MD Admit Provider, Other Pro vider Active Dr. Calvin Piña MD Attending Provider Active Team Status: Active Member Role Status Dates Dr. Calvin Waldrop MD Primary Care Provider Active Dr. Saumya Tavares , DO Emergency Provider Active Dr. Jay Kay MD Admit Provider, Other Pro vider Active Dr. Calvin Piña MD Attending Provider, Other Prov ider Active Team Status: Active Member Role Status Dates Dr. Calvin Waldrop MD Primary Care Provider Active Dr. Saumya Tavares , DO Emergency Provider Active Dr. Jay Kay MD Admit Provi elena, Attending Provider, Other Provider Active Dr. Calvin Piña MD Other Provider Active Team Status: Inactive Member Role Status Dates Dr. Calvin Waldrop MD Primary Care Provider Active Dr. Saumya Tavares , DO Emergency Provider Active Dr. Jay Kay MD Admit Provider, Attending Provider Active Dr. Calvin Piña MD Other Provider Active Team Status: Inactive Member Role Status Dates Milana Garcia DO Primary Care Provider Active Dr. David Jacobs , DO Emergency Provider Active Team Status: Inactive Member Role Status Dates Milana Garcia DO Primary Care Provider, Referring Provider Active Jericho SMITH, PA Attending Provider Active Team Status: Inactive Member Role Status Dates Milana Garcia DO Primary Care Provider Active Dr. David Jacobs , DO Attending Provider, Emergency P ty Active Team Status: Inactive Member Role Status Dates Milana Garcia DO Primary Care Provider Active Dr. Lauri Gaviria MD Emergency Provider Active Team Status: Inactive Member Role Status Dates Milana Garcia DO Primary Care Provider Active Dr. Lauri Gaviria MD Attending Provider, Emergency Provi elena Active Team Status: Active Member Role Status Dates Milana Garcia DO Primary Care Provider Active Dr. David Drew MD Attending Provider, Referring Prov ider Active Team Status: Active Member Role Status Dates Milana Garcia DO Primary Care Provider Active Dr. David Jacobs , DO Emergency Provider Active Dr. Young Kiran MD Admit Provider, Attending Pro vider Active Team Status: Active Member Role Status Dates Milana Garcia DO Primary Care Provider Active Dr. David Jacobs , DO Emergency Provider Active Dr. Young Kiran MD Admit Provider, Other Provide r Active Dr. Radha Johnson , DO Attending Provider, Other Provide r Active Team Status: Inactive Member Role Status Dates Milana Garcia , Primary Care Provider Active Dr. David Jacobs , DO Emergency Provider Active Dr. Young Kiran MD Admit Provider, Other Provide r Active Dr. Radha Johnson , DO Attending Provider Active Team Status: Active Member Role Status Dates Milana Garcia , Primary Care Provider Active Dr. Jose Taylor MD Attending Provider Active Dr. Young Kiran MD Referring Provider Active Team Status: Inactive Member Role Status Dates Milana Garcia , DO Primary Care Provider Active Dr. David Drew MD Attending Provider, Referring Prov ider Active Team Status: Inactive Member Role Status Dates Milana Garcia , Primary Care Provider Active Dr. John Dyer , DO Emergency Provider Active Team Status: Inactive Member Role Status Dates Milana Garcia , DO Primary Care Provider, Referring Provider Active Jim Manriquez RN DOCUMENTATION SPECIALIST, RN DOCUMENTATION SPECIALIST-C Attending Provider Active Team Status: Inactive Member Role Status Dates Milana Garcia , Primary Care Provider Active Dr. John Dyer , DO Attending Provider, Emergency Provider Active Team Status: Inactive Member Role Status Giovanna Garcia , Primary Care Provider, Attending Provider Active Team Status: Inactive Member Role Status Dates Milana Garcia , Primary Care Provider Active Dr. Caprice Jerry MD Emergency Provider Active Team Status: Inactive Member Role Status Giovanna Garcia , Primary Care Provider Active Dr. Caprice Jerry MD Attending Provider, Emergency Provider Active Team Status: Active Member Role Status Dates Milana Garcia DO Primary Care Provider Active Jim Manriquez RN DOCUMENTATION SPECIALIST, RN DOCUMENTATION SPECIALIST-C Attending Provider, Referring P roevert Active Team Status: Inactive Member Role Status Giovanna Garcia , Primary Care Provi elena, Attending Provider, Referring Provider Active Team Status: Inactive Member Role Status Giovanna Garcia DO Primary Care Provider Active Rober Concepcion MD Emergency Provider Active Team Status: Inactive Member Role Status Giovanna Garcia DO Primary Care Provider Active Rober Concepcion MD Attending Provider, Emergency Provid er Active Team Status: Inactive Member Role Status Dates Milana Garcia , Primary Care Provider Active Dr. Julio Wesley MD Attending Provider, Referring Provider Active Jim Manriquez RN DOCUMENTATION SPECIALIST, RN DOCUMENTATION SPECIALIST-C Other Provider Active Team Status: Inactive Member Role Status Dates Milana Trenter , DO Primary Care Provider, Referring Provider Active Daniel Mendoza PA, PA Attending Provider Active Team Status: Inactive Member Role Status Giovanna Garcia DO Primary Care Provider Active Dr. Julio Wesley MD Attending Provider, Referring Provider Active Team Status: Inactive Member Role Status Giovanna Garcia DO Primary Care Provider Active Dr. Jose Taylor MD Attending Provider Active Edge Burnisher Relationship Specialty Start Date End Date Ihsan Aguilar DO PCP - General Family Medicine 10/22/20 Edge Burnisher Relationship Specialty Start Date End Date Ihsan Aguilar DO PCP - General Family Medicine 10/22/20 Team Status: Active Member Role Status Giovanna Haley MD Primary Care Provider Active Team Status: Inactive Member Role Status Giovanna Haley MD Primary Care Provider Active St art: April 04, 2025 End: April 04, 2025 Dr. Imani Knight DO Emergency Provider Active Start: April 04, 2025 End: April 04, 2025 Team Status: Inactive Member Role Status Giovanna Haley MD Primary Care Provider Active St art: April 04, 2025 End: April 04, 2025 Dr. Imani Knight DO Attending Provider Active Start: April 04, 2025 End: April 04, 2025 Dr. Imani Knight DO Emergency Provider Active Start: April 04, 2025 End: April 04, 2025 Team Status: Inactive Member Role Status Giovanna Haley MD Primary Care Provider Active St art: April 11, 2025 End: April 12, 2025 Dr. Francisco Colon MD Emergency Provider Active S tart: April 11, 2025 End: April 12, 2025 Team Status: Inactive Member Role Status Giovanna Haley MD Primary Care Provider Active St art: April 11, 2025 End: April 12, 2025 Dr. Francisco Colon MD Attending Provider Active S tart: April 11, 2025 End: April 12, 2025 Dr. Francisco Colon MD Emergency Provider Active S tart: April 11, 2025 End: April 12, 2025 Team Status: Active Member Role Status Dates Abisai Haley MD Primary Care Provider Active St art: April 26, 2025 Dr. Humphrey Garcia DO Referring Provider Active Start: April 26, 2025 Dr. Humphrey Garcia DO Emergency Provider Active Start: April 26, 2025 Dr. Julius Moncada MD Admit Provider Active St art: April 26, 2025 Dr. Julius Moncada MD Attending Provider Active Start: April 26, 2025 FOR RECORDS PERTAINING TO PATIENTS WHO ARE [...] BE BASED ON THE PRIMARY CLINICAL RECORDS. [employer] provides no warranty or guarantee of the accuracy or completeness of information in this document.
[2025-05-04] VITALS (8 sets, daily range): BP systolic 150–176; BP diastolic 85–88; PULSE 79–89; RESP 14–20; TEMP 36.3–36.9; O2SAT 87–99
[2025-05-04] MEDS: Lactated Ringers 1,000 ML 150 ML IV (01:44)
[2025-05-04] MEDS: Insulin Lispro 100 UNIT/ML INSULN.PEN SC ×4 (06:19→23:09)
[2025-05-04] MEDS: busPIRone 5 MG Tablet PO (06:20)
[2025-05-04 06:51] LABS: Bedside Glucose 170 mg/dL (74-106)
[2025-05-04 06:55] LABS: Absolute Lymphocyte Count 1.36 X10^3/uL (0.83-4.51); Absolute Neutrophil Count 3.4 X10^3/uL (2.0-7.7); Basophil# 0.03 X10^3/uL; Basophil% 0.5 % (0-1); Eosinophil# 0.16 X10^3/uL; Eosinophils% 2.7 % (0-5); Hematocrit 30.6 % (37-47); Hemoglobin 10.3 g/dL (12.0-15.0); Lymphocyte # 1.36 X10^3/ul (0.83-4.51); Mean Corp Hgb Conc 33.7 g/dL (32-36); Mean Corpuscular Hgb 35.8 pg (27.0-32.0); Mean Corpuscular Volume 106.3 fL (81-99); Mean Platelet Vol. 10.3 fl (6.2-12.0); Monocyte# 0.91 X10^3/uL; Monocyte% 15.4 % (0-10); NRBC Flagged by Analyzer 0 % (0-5); Neutrophil # 3.44 X10^3/uL (2.7-7.7); Neutrophil % 58.1 % (47-70); Platelet Count 376 K/mm3 (150-450); RBC Distribution Width CV 12.8 % (11.6-14.6); RBC Distribution Width SD 49.9 fl (35.1-43.9); Red Blood Count 2.88 M/mm3 (4.2-5.4); White Blood Count 5.9 K/mm3 (4.4-11.0)
[2025-05-04 07:38] LABS: ALB/GLOB Ratio 1.1 RATIO (0.9-2.4); AST(SGOT) 51 U/L (<=31); Alanine Aminotransfer ALT/SGPT 45 U/L (<=34); Albumin, Serum 3.4 g/dL (3.5-5.0); Alkaline Phosphatase 441 U/L (35-104); Anion Gap 11 (5-15); BUN 6 mg/dL (4-19); BUN/Creat Ratio 9.6 RATIO (10-20); Calcium,Total 9.3 mg/dL (7.6-11.0); Carbon Dioxide 27.3 mmol/L (21.0-32.0); Chloride 96 mmol/L (98-108); Creatinine, Serum 0.63 mg/dL (0.70-1.20); EST Glomerular Filtration Rate 109 (>60); Globulin 2.9 g/dL (2.2-4.2); Glucose 171 mg/dL (70-99); Potassium 4.7 mmol/L (3.3-5.1); Protein, Total 6.3 g/dL (5.9-8.4); Sodium Level 134 mmol/L (133-145); Total Bilirubin 0.35 mg/dL (0.00-1.30)
--- NOTE | 2025-05-04 07:42 | PCM.PN.HOSP ---
Reason for Visit Reason for Visit: Diagnoses Acute pancreatitis without necrosis or infection, unspecified (04/26/25) Subjective Subjective Patient seen still remains quite lethargic. Reviewed patient current medication regimen discontinuing gabapentin, trazodone at nights, scheduled BuSpar as well as hydroxyzine. Also discontinued Dilaudid patient placed on Oxy IR as needed for pain Objective Data Objective Data Vital Signs: Vital Signs Temp Pulse Resp BP Pulse Ox O2 Del Method O2 Flow Rate 98.5 F 88 18 176/85 H 87 Room Air 2 05/04/25 05:00 05/04/25 05:00 05/04/25 05:00 05/04/25 05:00 05/04/25 05:00 05/04/25 06:00 05/04/25 05:00 Oxygen Flow Rate (L/min) 2 Oxygen Delivery Method Room Air Weight: 59.5 kg Body Mass Index (BMI) 22.5 Intake & Output: Intake and Output for Last 24 Hours 05/02/25 05/03/25 05/04/25 23:59 23:59 23:59 Intake Total 3412.5 / 3412.5 3600 / 3600 1097.5 / 1097.5 Balance 3412.5 / 3412.5 3600 / 3600 1097.5 / 1097.5 Medical Nutrition Assessment Dietitian: Malnutrition Criteria Met Start: 04/27/25 14:17 Freq: Status: Active Protocol: Document 04/27/25 14:17 SB (Rec: 04/27/25 14:17 SB [id number]) Nutrition Malnutrition Evidence of Yes Malnutrition Exists Malnutrition (severe Acute Illness/Injury ): Evidenced By Suboptimal Energy Intake (Severe),Weight Loss (Severe) Clinical Problem Acute Disease or Injury Related Malnutrition Etiology severe related to inadequate oral intake Signs/Symptoms as evidenced by 10% unintentional weight loss x <1 month and PO meeting <50% of estimated nutrition needs x 1 month. Status Active Problem Recommendation Dietitian Adjust to regular, fat restriction diet. Recommendations/ Continue 120ml glucerna TID with medpass. Changes Will monitor weight trends. Lab / Micro Data 05/04/25 05:55 05/04/25 05:55 Labs: Laboratory Results - last 24 hr 05/03/25 12:23: POC Glucose 237 H 05/03/25 17:16: POC Glucose 230 H 05/04/25 05:55: WBC 5.9, RBC 2.88 L, Hgb 10.3 L, Hct 30.6 L, MCV 106.3 H, MCH 35.8 H, MCHC 33.7, RDW Std Deviation 49.9 H, RDW Coeff of Braxton 12.8, Plt Count 376, MPV 10.3, Immature Gran % (Auto) 0.300, Neut % (Auto) 58.1, Lymph % (Auto) 23.0, [place] % (Auto) 15.4 H, Eos % (Auto) 2.7, Baso % (Auto) 0.5, Absolute Neuts (auto) 3.4, Absolute Lymphs (auto) 1.36, Nucleated RBC % 0, Sodium 134, Potassium 4.7, Chloride 96 L, Carbon Dioxide 27.3, Anion Gap 11, BUN 6, Creatinine 0.63 L, Estim Creat Clear Calc 94.30, Est GFR (MDRD) Non-Af 109, BUN/Creatinine Ratio 9.6 L, Glucose 171 H, Calcium 9.3, Total Bilirubin 0.35, AST 51 H, ALT 45 H, Alkaline Phosphatase 441 H, Total Protein 6.3, Albumin 3.4 L, Globulin 2.9, Albumin/Globulin Ratio 1.1 05/04/25 06:17: POC Glucose 170 H Physical Exam Narrative GENERAL: Somewhat lethargic HEENT: Atraumatic; normocephalic EYES; Anicteric, Normal Conjunctiva NECK; supple, normal thyroid, RESPIRATORY: Diminished to auscultation CARDIOVASCULAR: Regular S1 S2, GI: soft, normoactive bowel sounds, : No Renal angle tenderness; EXTREMITIES: No edema, no clubbing, MUSCULOSKELETAL: no muscle wasting NEURO: Awake; no lateralizing signs. SKIN: No Rash PSYCH; Flat affect Assessment & Plan Assessment/Plan (1) Pancreatitis: PLAN: Plan Patient is a 50-year-old lady with history of alcohol dependence, prior episodes of pancreatitis who presented with abdominal pain. Patient was found to have elevated lipase levels. 1. Acute on chronic pancreatitis ? Patient has been admitted to a monitored bed for symptom management including IV fluids, pain meds as well as antinausea medication. Plan is for patient to follow-up with GI following discharge ? 04/28/2025 patient lipase levels down and symptoms improving ? 04/30/2025; plan is to advance patient's diet ? 05/02/2025; patient pain controlled. 2. Alcohol withdrawal with delirium tremens ? Patient was started on CIWA protocol placed on phenobarb taper. ? 04/30/2025; patient has tolerated phenobarb taper well ?05/02/2025; patient scheduled to complete the phenobarb taper this evening ? 05/03/2025; patient has completed phenobarb taper ? 05/04/2025; discontinued scheduled hydroxyzine given patient's significant lethargy 3. Elevated transaminases ? Patient pattern consistent with alcohol use we will monitor ? 04/28/2025 patient transaminases continue to rise repeat labs ordered in the 4. Dyslipidemia ?Patient is on statin therapy, continued at home dose 5. COPD ? Currently not in exacerbation aerosol treatments as needed 6. Hypertension ? Blood pressure controlled, home medications continued with dose adjustment as needed 7. Diabetes mellitus type 2 ? Held patient oral antihypertensive agent placed on Accu-Cheks AC and at bedtime with sliding scale coverage 8. GERD ? Patient was placed on PPI 9. Tobacco dependence ? Counseled on cessation, offered nicotine patch for tobacco cravings 10. Depression with anxiety ? Patient is on citalopram bupropion as well as buspirone did continue ? 05/04/2025; discontinued patient buspirone in view of his significant lethargy 11. Macrocytosis ? Secondary to chronic alcohol use repeat CBC with differential ordered in a.m. 12. Mild hyponatremia ? Secondary to hypovolemic hyponatremia started on IV fluid with BMP ordered for a.m. 13. Chronic alcohol dependence ? Counseled on cessation 14. Hallucinations ?? Alcohol withdrawal patient denies being jittery. Will continue with monitoring and start patient on phenobarb. Initiated CIWA protocol ? Secondary to alcohol withdrawal management as discussed above 15. Hypophosphatemia -Corrected per protocol, repeat phosphate ordered for 16 Hypomagnesemia -Corrected for protocol, repeat magnesium ordered for a.m. 17. Hypokalemia - Secondary to GI losses. Corrected per protocol repeat labs ordered in a.m. for follow-up ? 04/29/2025; further drop in patient potassium level and order was given for parenteral potassium ? 04/30/2025; potassium down to 2.7. Additional replacement given via both parenteral and oral route 18. Thrombocytopenia ? Secondary to chronic alcohol use monitoring with CBC with differential 19. Anemia ? Secondary to chronic disorder monitoring H&H and transfuse if patient becomes symptomatic or hemoglobin falls below 7 20. DVT prophylaxis ? Patient had been started on enoxaparin given the significant drop in platelet count enoxaparin 21. Severe malnutrition. Related to: inadequate oral intake As evidenced by: 10% unintentional weight loss x <1 month and PO meeting <50% of estimated nutrition needs x 1 month. With treatment/resources used including: Adjust to regular, fat restriction diet. Continue 120ml glucerna TID with medpass. Will monitor weight trends. 22. Hypophosphatemia ? Secondary to aggressive repletion of patient low phosphate levels. Held patient phosphate 23. Physical deconditioning ? Requested for PT OT eval and social media marketing analyst to assist with discharge planning ? 05/03/2025; patient remains physical deconditioning. She is agreeable to being discharged [facility] this was discussed with patient's son Tan was in the room Time spent in the patient's overall evaluation,decision-making process, review of diagnostic data, adjustment of management, discussion with other providers, nursing nursing and ancillary staff involved in patient's care documentation, 35 minutes Charges/Coding Visit Charges Inpatient E&M: 03242 Subs Hosp L2
[2025-05-04] MEDS: Albuterol 2.5 MG/3 ML VIAL.NEB. INHALATION ×2 (07:57→20:13)
[2025-05-04] MEDS: Budesonide Respules 0.5 MG/2 ML AMPUL.NEB. INHALATION ×2 (07:57→20:13)
[2025-05-04] MEDS: Magnesium Chloride 64 MG Delay Rel.Tablet PO (09:29)
[2025-05-04] MEDS: Pantoprazole Sodium 40 MG Tablet PO ×2 (09:29→22:26)
[2025-05-04] MEDS: Citalopram 40 MG TABLET PO (09:29)
[2025-05-04] MEDS: Lisinopril 40 MG Tablet PO (09:29)
[2025-05-04] MEDS: Acetaminophen 325 MG Tablet 650 MG PO (09:29)
[2025-05-04] MEDS: Folic Acid 1 MG Tablet PO (09:29)
[2025-05-04] MEDS: amLODIPine 5 MG Tablet PO (09:29)
[2025-05-04] MEDS: Thiamine Hydrochloride 100 MG Tablet PO (09:30)
[2025-05-04] MEDS: Montelukast 10 MG Tablet PO (09:30)
[2025-05-04] MEDS: Metoprolol(XL)Succ 25 MG Tablet PO (09:30)
[2025-05-04] MEDS: Atorvastatin Calcium 40 MG Tablet PO (09:30)
[2025-05-04] MEDS: Aspirin 81 MG TAB.CHEW PO (09:30)
[2025-05-04] MEDS: Potassium Chloride Oral Tablet 20 MEQ PO (09:30)
[2025-05-04] MEDS: buPROPion (XL) 150 MG TABLET.XL PO (09:31)
[2025-05-04 12:21] LABS: Bedside Glucose 245 mg/dL (74-106)
--- NOTE | 2025-05-04 12:50 | CASEMGMT ---
SW met with patient. Introduced self and role at [facility]. SW asked patient if she still feels like she needs to go to a custodial facility for rehab. Patient said she thinks she does. SW told patient that SW will have Ritu from [employer] come and talk with her to see if she will qualify for senior care Medicaid. SW called Ritu and left her a voice mail letting her know to please see patient. Lyla HANNA
--- NOTE | 2025-05-04 13:47 | CASEMGMT ---
Ritu from [employer] completed a Medicaid application with patient, however she does not feel patient will qualify due to the bank account. Ritu will submit the application. LAI met with patient and asked where she would like to go. Patient wants to go to [facility] where her is located. SW explained to patient the [facility]dc will likely want 30 days up front which could be as much as $7,000. SW asked patient if she would be able to pay this. Patient said she could. LAI asked Dara d/c materials planning analyst to please make a referral to [facility]. Patient will need a pending Medicaid number so SW can obtain a level of care. The pending number will likely not come back until Wednesday. Plan: Possibly SNF depending on how patient does with therapy through the weekend and if [facility] accepts her. Lyla Marmolejo LIFE CONSULTANT JACQUES
--- NOTE | 2025-05-04 14:12 | CASEMGMT ---
Addendum entered by Daar Orr 05/04/25 16:27: [facility] has accepted. Pt will need to pay 30 days upfront for a total of $7200 and they are unable to accept until Wednesday afternoon. Dara Orr DC Planning Asst. Original Note: Discharge Planning Referral sent to [facility]. Dara Orr DC Planning Asst.
[2025-05-04 16:37] LABS: Bedside Glucose 299 mg/dL (74-106)
[2025-05-04 23:23] LABS: Bedside Glucose 299 mg/dL (74-106)
[2025-05-05] VITALS (9 sets, daily range): BP systolic 130–143; BP diastolic 64–85; PULSE 78–90; RESP 12–18; TEMP 36.3–36.8; O2SAT 95–100
[2025-05-05] MEDS: Insulin Lispro 100 UNIT/ML INSULN.PEN SC ×4 (06:24→21:08)
[2025-05-05 06:52] LABS: Bedside Glucose 221 mg/dL (74-106)
[2025-05-05] MEDS: Budesonide Respules 0.5 MG/2 ML AMPUL.NEB. INHALATION ×2 (07:36→20:11)
[2025-05-05] MEDS: Albuterol 2.5 MG/3 ML VIAL.NEB. INHALATION ×2 (07:36→20:11)
[2025-05-05] MEDS: Pantoprazole Sodium 40 MG Tablet PO ×2 (09:29→21:08)
[2025-05-05] MEDS: Potassium Chloride Oral Tablet 20 MEQ PO ×2 (09:29→16:42)
[2025-05-05] MEDS: Folic Acid 1 MG Tablet PO (09:30)
[2025-05-05] MEDS: Montelukast 10 MG Tablet PO (09:30)
[2025-05-05] MEDS: Magnesium Chloride 64 MG Delay Rel.Tablet PO (09:30)
[2025-05-05] MEDS: Thiamine Hydrochloride 100 MG Tablet PO (09:30)
[2025-05-05] MEDS: Lisinopril 40 MG Tablet PO (09:30)
[2025-05-05] MEDS: Citalopram 40 MG TABLET PO (09:30)
[2025-05-05] MEDS: buPROPion (XL) 150 MG TABLET.XL PO (09:31)
[2025-05-05] MEDS: amLODIPine 5 MG Tablet PO (09:31)
[2025-05-05] MEDS: Aspirin 81 MG TAB.CHEW PO (09:31)
[2025-05-05] MEDS: Metoprolol(XL)Succ 25 MG Tablet PO (09:31)
[2025-05-05] MEDS: Atorvastatin Calcium 40 MG Tablet PO (09:32)
--- NOTE | 2025-05-05 11:19 | CASEMGMT ---
Social Work SW met w/pt, did let her know that [facility] will need $7200 upfront, and they can take her Wednesday. Pt states that's a lot of money, but she is aware that it is less than most other facilities in the area. She asked if she did not stay the whole month what would happen. SW let her know they should refund her money. Pt states understanding. Pt states she does have the money, will follow up w/SW on Wednesday. ZANA Walker
[2025-05-05 11:46] LABS: Bedside Glucose 346 mg/dL (74-106)
--- NOTE | 2025-05-05 11:48 | NURSING ---
report called and given to Bouchra on MS3
[2025-05-05 16:49] LABS: Bedside Glucose 257 mg/dL (74-106)
--- NOTE | 2025-05-05 17:25 | PCM.PN.HOSP ---
Reason for Visit Reason for Visit: Diagnoses Acute pancreatitis without necrosis or infection, unspecified (04/26/25) Subjective Subjective Patient was seen and examined today, she was moved to [facility], social and political studies professor talked with her today, they verify that she is able to pay [id number] for correction stay, patient is not eligible for Medicaid. I talked to her today about going home rather than going to a jail facility, she does have family to help her at home and I told her to put some thought on going home rather than going to a correction. I will discuss this again with her tomorrow. Objective Data Objective Data Vital Signs: Vital Signs Temp Pulse Resp BP Pulse Ox O2 Del Method O2 Flow Rate 97.3 F L 80 18 130/70 H 99 Nasal Cannula 2 05/05/25 13:28 05/05/25 13:28 05/05/25 13:29 05/05/25 13:28 05/05/25 13:28 05/05/25 13:29 05/05/25 13:29 Oxygen Flow Rate (L/min) 2 Oxygen Delivery Method Nasal Cannula Weight: 59.5 kg Body Mass Index (BMI) 22.5 Intake & Output: Intake and Output for Last 24 Hours 05/03/25 05/04/25 05/05/25 23:59 23:59 23:59 Intake Total 3600 / 3600 3297.5 / 3297.5 350 / 350 Balance 3600 / 3600 3297.5 / 3297.5 350 / 350 Medical Nutrition Assessment Dietitian: Malnutrition Criteria Met Start: 04/27/25 14:17 Freq: Status: Active Protocol: Document 05/04/25 11:27 SB (Rec: 05/04/25 11:28 SB [id number]) Nutrition Malnutrition Evidence of Yes Malnutrition Exists Malnutrition (severe Acute Illness/Injury ): Evidenced By Suboptimal Energy Intake (Severe),Weight Loss (Severe) Clinical Problem Acute Disease or Injury Related Malnutrition Etiology severe related to inadequate oral intake Signs/Symptoms as evidenced by 10% unintentional weight loss x <1 month and PO meeting <50% of estimated nutrition needs x 1 month. Status Active Problem Recommendation Dietitian Adjust to consistent carbohydrate diet with fat Recommendations/ restriction. Changes Continue 120ml glucerna TID with medpass. Will monitor weight trends. Lab / Micro Data 05/04/25 05:55 05/04/25 05:55 Labs: Laboratory Results - last 24 hr 05/04/25 22:25: POC Glucose 299 H 05/05/25 06:22: POC Glucose 221 H 05/05/25 11:27: POC Glucose 346 H 05/05/25 16:19: POC Glucose 257 H Physical Exam Const alert, oriented x3 and no apparent distress General Appearance: cooperative, well kempt and well developed Orientation / Consciousness: awake, oriented to person, oriented to place and oriented to time HEENT normocephalic, head/scalp atraumatic and moist oral mucous membranes Eyes PERRL, EOMs intact bilaterally and conjunctivae normal Neck supple, no JVD, thyroid normal and no carotid bruits General: trachea midline Resp normal respiratory effort and clear to auscultation bilaterally Auscultation: Negative for rales, rhonchi or wheezes Cardio regular rate, regular rhythm, S1 normal heart sound, S2 normal heart sound, no murmurs, no rub and no gallops GI normal to inspection, nondistended, normoactive bowel sounds, soft to palpation, non-tender and non-distended Extremity no clubbing, cyanosis or edema Skin no rashes or lesions noted General Skin Exam: no breakdown Neuro oriented x3, CN's II-XII intact bilaterally, moves all extremities, no focal motor deficits and no sensory deficits noted Sensorium / Orientation: awake and alert Speech: speech normal Psych affect normal Assessment & Plan Assessment/Plan (1) Pancreatitis: PLAN: Plan 1. Acute on chronic pancreatitis-secondary to alcoholism-continue supportive care #2 hypokalemia-patient was given supplemental potassium, potassium level was normal #3 type 2 diabetes-continue to monitor blood sugars, sliding scale insulin will be administered as needed #4 acute debility-patient is unsure if she wants to go to a jail facility versus home, I will talk with her again tomorrow, PT and OT are seeing patient #5 acute severe protein and caloric malnutrition-as evidenced by 10% unintentional weight loss times less than a month and p.o. meeting less than 50% of estimated nutritional needs x 1 month-diet was adjusted to regular, continue Glucerna 3 times daily with [employer] App, nutritional services monitoring patient #6 alcohol withdrawal with delirium tremens-resolved at this time, patient had been placed on a phenobarb taper and Ativan initially. Total clinical time spent by myself addressing the patient's medical issues, reviewing all of her data, and collaborating with patient's care team: 35-minute Charges/Coding Visit Charges Inpatient E&M: 54021 Subs Hosp L2
[2025-05-05 21:38] LABS: Bedside Glucose 331 mg/dL (74-106)
[2025-05-05] MEDS: Menthol/Lanolin/Calamine/Znox 113 GM Tube 1 APPLIC TOPICAL (22:05)
[2025-05-06 02:33] VITALS: PULSE 82; RESP 16; O2SAT 92
[2025-05-06] MEDS: Insulin Lispro 100 UNIT/ML INSULN.PEN SC ×2 (06:04→11:12)
[2025-05-06 06:11] VITALS: BP 134/74; PULSE 82; RESP 16; TEMP 36.3; O2SAT 94
[2025-05-06 06:34] LABS: Bedside Glucose 219 mg/dL (74-106)
[2025-05-06 07:06] VITALS: PULSE 74; RESP 18
[2025-05-06] MEDS: Albuterol 2.5 MG/3 ML VIAL.NEB. INHALATION (07:06)
[2025-05-06] MEDS: Budesonide Respules 0.5 MG/2 ML AMPUL.NEB. INHALATION (07:06)
[2025-05-06] MEDS: Lisinopril 40 MG Tablet PO (08:03)
[2025-05-06] MEDS: Folic Acid 1 MG Tablet PO (08:03)
[2025-05-06] MEDS: Magnesium Chloride 64 MG Delay Rel.Tablet PO (08:03)
[2025-05-06] MEDS: Pantoprazole Sodium 40 MG Tablet PO (08:03)
[2025-05-06] MEDS: Montelukast 10 MG Tablet PO (08:03)
[2025-05-06] MEDS: Aspirin 81 MG TAB.CHEW PO (08:03)
[2025-05-06] MEDS: amLODIPine 5 MG Tablet PO (08:03)
[2025-05-06 08:04] VITALS: PULSE 78
[2025-05-06] MEDS: Potassium Chloride Oral Tablet 20 MEQ PO (08:04)
[2025-05-06] MEDS: Metoprolol(XL)Succ 25 MG Tablet PO (08:04)
[2025-05-06] MEDS: Thiamine Hydrochloride 100 MG Tablet PO (08:04)
[2025-05-06] MEDS: Atorvastatin Calcium 40 MG Tablet PO (08:04)
[2025-05-06] MEDS: buPROPion (XL) 150 MG TABLET.XL PO (08:05)
[2025-05-06] MEDS: Citalopram 40 MG TABLET PO (08:05)
[2025-05-06] MEDS: Menthol/Lanolin/Calamine/Znox 113 GM Tube 1 APPLIC TOPICAL (08:07)
[2025-05-06] MEDS: Glucerna Shake 120 ML LIQUID PO ×2 (08:08→11:14)
[2025-05-06 08:37] VITALS: BP 126/65; PULSE 78; RESP 16; TEMP 36.8; O2SAT 93
[2025-05-06 11:28] VITALS: BP 125/80; PULSE 75; RESP 16; TEMP 36.6; O2SAT 92
[2025-05-06 11:30] LABS: Bedside Glucose 358 mg/dL (74-106)
--- NOTE | 2025-05-06 13:12 | DCINST_ITS ---
Discharge Instructions Diet Discharge Diet: 1800 Calorie Control Diet DC O2, CPAP, BIPAP needs Home O2 Discharge instructions: No Dressing / Incision Discharge Activity: Return to Normal Activity Weight Bearing Status: Full weight bearing Follow Up Care Test Results: Test results from this visit will be discussed in further detail at your follow- up appointment, if applicable. Discharge Plan Admission Admit Date/Time: 04/26/25 17:13 Primary Reason for Your Visit: PANCREATITIS Attending Provider: Mao Becker Primary Care Provider: Abisai Haley Consulting Providers: Julius Moncada; Canelo Myers Discharge Orders/Prescriptions Prescriptions: New glimepiride 4 mg tablet 4 mg PO DAILY Qty: 30 0RF Continued metformin 500 mg tablet 500 ea PO BID magnesium 250 mg tablet 250 mg PO DAILY cholecalciferol (vitamin D3) 50 mcg (2,000 unit) capsule 50 mcg PO DAILY albuterol sulfate 90 mcg/actuation HFA aerosol inhaler 2 puff inhalation Q6H PRN (Reason: shortness of breath or wheezing) Qty: 8.5 0RF aspirin 81 mg Tablet,Chewable 81 mg PO DAILY@0800 Qty: 30 0RF bupropion HCl 150 mg tablet extended release 24 hr 150 mg PO DAILY Patient Comments: take 1 tablet by mouth once daily montelukast [Singulair] 10 mg Tablet 10 mg PO DAILY budesonide-formoterol [Symbicort] 80-4.5 mcg/actuation Hfa Aerosol Inhaler 1 puff INHALATION BID pantoprazole 40 mg tablet,delayed release (DR/EC) 40 mg PO BID citalopram 40 mg tablet 40 mg PO DAILY lisinopril 40 mg tablet 40 mg PO DAILY levocetirizine 5 mg tablet 5 mg PO DAILY metoprolol succinate 25 mg tablet extended release 24 hr 25 mg PO DAILY Jardiance 25 mg tablet 25 mg PO DAILY buspirone 5 mg tablet 5 mg PO TID amlodipine 5 mg tablet 5 mg PO DAILY hydroxyzine HCl 10 mg tablet 10 mg PO TID PRN PRN (Reason: anxiety) budesonide-formoterol 160-4.5 mcg/actuation HFA aerosol inhaler 2 puff INHALATION BID atorvastatin 40 mg tablet 40 mg PO DAILY Qty: 30 6RF Discontinued omega-3 fatty acids 1,000 mg capsule 1,000 mg PO DAILY Referrals / Follow Up: Abisai Haley MD [Primary Care Provider] - See Referral Note (IN TWO WEEKS) Disposition Disposition (needs filled in before D/C Order can be placed): Home, Self Care
--- NOTE | 2025-05-06 13:22 | PCM.DC.SUM ---
Providers Date of Admission: 04/26/25 Date of Discharge: 05/06/25 Primary Care Physician: Abisai Haley MD Reason For Visit: ACUTE PANCREATITIS Diagnosis Discharge Diagnosis (1) Pancreatitis: Status: Acute Code(s): K85.90 - Acute pancreatitis without necrosis or infection, unspecified Plan: 1.. Acute on chronic pancreatitis-secondary to alcoholism-continue supportive care #2 hypokalemia-patient was given supplemental potassium, potassium level was normal #3 type 2 diabetes-continue to monitor blood sugars, sliding scale insulin will be administered as needed #4 acute debility-patient is unsure if she wants to go to a fdc facility versus home, I will talk with her again tomorrow, PT and OT are seeing patient #5 acute severe protein and caloric malnutrition-as evidenced by 10% unintentional weight loss times less than a month and p.o. meeting less than 50% of estimated nutritional needs x 1 month-diet was adjusted to regular, continue Glucerna 3 times daily with [employer], nutritional services monitoring patient #6 hypomagnesemia #6 alcohol withdrawal with delirium tremens-resolved at this time, patient had been placed on a phenobarb taper and Ativan initially. Medications at Discharge Home Medications metformin 500 mg tablet 500 ea PO BID DIABETES 10/31/22 aspirin 81 mg chewable tablet 81 mg PO DAILY@0800 #30 tabs 11/19/22 bupropion HCl 150 mg 24 hr tablet, extended release 150 mg PO DAILY 01/21/23 budesonide-formoterol HFA 80 mcg-4.5 mcg/actuation aerosol inhaler (Symbicort) 1 puff inhalation BID SOB/wheezing 04/09/23 montelukast 10 mg tablet (Singulair) 10 mg PO DAILY 04/09/23 pantoprazole 40 mg tablet,delayed release 40 mg PO BID 05/04/23 cholecalciferol (vitamin D3) 50 mcg (2,000 unit) capsule 50 mcg PO DAILY 08/25/23 magnesium 250 mg tablet 250 mg PO DAILY 08/25/23 albuterol sulfate 90 mcg/actuation aerosol inhaler 2 puff inhalation Q6H PRN shortness of breath or wheezing #8.5 grams 04/27/24 empagliflozin 25 mg tablet (Jardiance) 25 mg PO DAILY 11/12/24 metoprolol succinate 25 mg tablet,extended release 24 hr 25 mg PO DAILY 11/12/24 amlodipine 5 mg tablet 5 mg PO DAILY 04/04/25 buspirone 5 mg tablet 5 mg PO TID 04/04/25 hydroxyzine HCl 10 mg tablet 10 mg PO TID PRN PRN anxiety 04/04/25 citalopram 40 mg tablet 40 mg PO DAILY 04/11/25 levocetirizine 5 mg tablet 5 mg PO DAILY 04/11/25 lisinopril 40 mg tablet 40 mg PO DAILY 04/11/25 atorvastatin 40 mg tablet 40 mg PO DAILY #30 tabs 04/16/25 budesonide-formoterol HFA 160 mcg-4.5 mcg/actuation aerosol inhaler 2 puff inhalation BID SOB 04/26/25 glimepiride 4 mg tablet 4 mg PO DAILY #30 tabs 05/06/25 Hospital Course Operations None Procedures None Summary of Care Provided Minutes Spent on Discharge: 31 Hospital Course: This 50-year-old white female was seen in the emergency room at [facility] with complaints of nausea and vomiting x 3 to 4 days. Patient related to history of pancreatitis in the past, patient stated that she was still drinking sporadically. Evaluation in ER showed a normal white blood cell count, potassium was low 2.8, lipase was 1045, and magnesium was 0.9. CT of the abdomen and pelvis showed evidence of acute on chronic pancreatitis. Patient was admitted to the medical floor and given IV fluids, potassium supplementation was given as well as magnesium supplementation. Patient ultimately had signs of DTs and was placed on a phenobarb taper. She was seen by PT and OT. Patient complained of generalized weakness and consider going to a skilled care facility for rehab services but she would have to pay [id number] for this. Patient finally decided to go home instead. On 05/06/2025, patient was seen and examined: On examination she appeared in good health and spirits, she does not appear to be in any distress. Vital signs as documented. Skin warm and dry and without overt rashes. Neck without JVD, thyroid appears normal, trachea is midline, neck is supple. Lungs clear, normal air movement was noted. Heart exam notable for regular rhythm, normal sounds and absence of murmurs, rubs or gallops. Abdomen unremarkable and without evidence of organomegaly, masses, or abdominal aortic enlargement, bowel sounds are present in all 4 quadrants, no abdominal tenderness was noted. Extremities nonedematous, no cyanosis was noted, no clubbing was noted. Neuro: Cranial nerves II through XII are grossly intact, no focal motor deficits were noted, sensation to light touch and pinprick is intact, motor exam 5/5 throughout. Psych: Patient is alert and oriented x3, she does not appear anxious or depressed, she does not appear agitated. Patient was discharged in stable condition on 05/06/2025 Medical Records Data Medical Nutrition Assessment Dietitian: Malnutrition Criteria Met Start: 04/27/25 14:17 Freq: Status: Active Protocol: Document 05/04/25 11:27 SB (Rec: 05/04/25 11:28 SB [id number]) Nutrition Malnutrition Evidence of Yes Malnutrition Exists Malnutrition (severe Acute Illness/Injury ): Evidenced By Suboptimal Energy Intake (Severe),Weight Loss (Severe) Clinical Problem Acute Disease or Injury Related Malnutrition Etiology severe related to inadequate oral intake Signs/Symptoms as evidenced by 10% unintentional weight loss x <1 month and PO meeting <50% of estimated nutrition needs x 1 month. Status Active Problem Recommendation Dietitian Adjust to consistent carbohydrate diet with fat Recommendations/ restriction. Changes Continue 120ml glucerna TID with medpass. Will monitor weight trends. Weight / BMI Weight Weight: 59.5 kg Body Mass Index (BMI) 22.5 ABG / Lab / Microbiology Data 05/04/25 05:55 05/04/25 05:55 Laboratory: Laboratory Results - last 24 hr 05/05/25 16:19: POC Glucose 257 H 05/05/25 21:07: POC Glucose 331 H 05/06/25 06:01: POC Glucose 219 H 05/06/25 11:09: POC Glucose 358 H D/C Instructions Discharge Diet: 1800 Calorie Control Diet Weight Bearing Status: Full weight bearing DC O2, CPAP, BIPAP Needs Home O2 Discharge instructions: No Meaningful Use Info Meaningful Use Meaningful Use Diagnoses (Choose all that apply): None applicable Ischemic Stroke Statin Dosing Therapy Reference: STATIN DOSE THERAPY REFERENCE: * Patients > 75 years receive moderate or high dose statin therapy. * Patients 75 years or YOUNGER should receive HIGH intensity statin dose unless contraindicated. You will be required to document reason for non-treatment if statin daily dose does not meet guidelines. HIGH DOSE STATIN THERAPY DAILY Atorvastatin > than or = to 40 mg Rosuvastatin > than or = to 20 mg Amlodipine + Atorvastatin > than or = to 2.5/40 mg Ezetimibe + Simvastatin 10/80 mg Simvastatin 80mg Discharge Plan Admission Admit Date/Time: 04/26/25 17:13 Primary Reason for Your Visit: PANCREATITIS Attending Provider: Mao Becker Primary Care Provider: Abisai Haley Consulting Providers: Julius Moncada; Canelo Myers Discharge Orders/Prescriptions Prescriptions: New glimepiride 4 mg tablet 4 mg PO DAILY Qty: 30 0RF Continued metformin 500 mg tablet 500 ea PO BID magnesium 250 mg tablet 250 mg PO DAILY cholecalciferol (vitamin D3) 50 mcg (2,000 unit) capsule 50 mcg PO DAILY albuterol sulfate 90 mcg/actuation HFA aerosol inhaler 2 puff inhalation Q6H PRN (Reason: shortness of breath or wheezing) Qty: 8.5 0RF aspirin 81 mg Tablet,Chewable 81 mg PO DAILY@0800 Qty: 30 0RF bupropion HCl 150 mg tablet extended release 24 hr 150 mg PO DAILY Patient Comments: take 1 tablet by mouth once daily montelukast [Singulair] 10 mg Tablet 10 mg PO DAILY budesonide-formoterol [Symbicort] 80-4.5 mcg/actuation Hfa Aerosol Inhaler 1 puff INHALATION BID pantoprazole 40 mg tablet,delayed release (DR/EC) 40 mg PO BID citalopram 40 mg tablet 40 mg PO DAILY lisinopril 40 mg tablet 40 mg PO DAILY levocetirizine 5 mg tablet 5 mg PO DAILY metoprolol succinate 25 mg tablet extended release 24 hr 25 mg PO DAILY Jardiance 25 mg tablet 25 mg PO DAILY buspirone 5 mg tablet 5 mg PO TID amlodipine 5 mg tablet 5 mg PO DAILY hydroxyzine HCl 10 mg tablet 10 mg PO TID PRN PRN (Reason: anxiety) budesonide-formoterol 160-4.5 mcg/actuation HFA aerosol inhaler 2 puff INHALATION BID atorvastatin 40 mg tablet 40 mg PO DAILY Qty: 30 6RF Discontinued omega-3 fatty acids 1,000 mg capsule 1,000 mg PO DAILY Referrals / Follow Up: Abisai Haley MD [Primary Care Provider] - See Referral Note (IN TWO WEEKS) Disposition Disposition (needs filled in before D/C Order can be placed): Home, Self Care Charges/Coding Visit Charges Inpatient E&M: 67553 Disch Hosp >30min
== END 2025-05-06 14:22 | disposition home or self-care (01) | DRG 438 ==
LOC: ED 16:45 → PCU 17:20 → MS3 05-05 13:05
PROVIDERS: Family Medicine; Internal Medicine; Admitting Provider Internal Medicine; Emergency Provider Emergency Medicine; PCP Family Medicine; Referring Provider Emergency Medicine; Visit Provider Internal Medicine
DX: K85.90 Acute pancreatitis without necrosis or infection, unspecified (principal); E43 Unspecified severe protein-calorie malnutrition; F10.231 Alcohol dependence with withdrawal delirium; E87.1 Hypo-osmolality and hyponatremia; E11.9 Type 2 diabetes mellitus without complications; J44.9 Chronic obstructive pulmonary disease, unspecified; I10 Essential (primary) hypertension; D69.6 Thrombocytopenia, unspecified; K86.1 Other chronic pancreatitis; E83.39 Other disorders of phosphorus metabolism; G47.33 Obstructive sleep apnea (adult) (pediatric); F17.210 Nicotine dependence, cigarettes, uncomplicated; E87.6 Hypokalemia; K21.9 Gastro-esophageal reflux disease without esophagitis; E78.5 Hyperlipidemia, unspecified; F41.8 Other specified anxiety disorders; E83.42 Hypomagnesemia; I25.2 Old myocardial infarction; Z79.82 Long term (current) use of aspirin; Z83.3 Family history of diabetes mellitus; Z68.22 Body mass index [BMI] 22.0-22.9, adult; Z90.49 Acquired absence of other specified parts of digestive tract; Y90.9 Presence of alcohol in blood, level not specified
CPT/HCPCS: 36415; 74177; 80048; 80053; 80076; 81001; 82077; 82962; 83036; 83690; 83735; 84100; 84443; 85025; 85610; 94640; 94660; 97116; 97162; 97166; 97530; 97535; 97802; 97803; 99283; 99406; Q9967; A4216; J2405

== ENCOUNTER 2025-05-24 23:09 | Inpatient (IN) | payer SELFPAY ==
[2025-05-24 23:09] VITALS: BP 137/94; PULSE 123; RESP 14; TEMP 36.6; O2SAT 93; BMI 21.7
[2025-05-25] VITALS (12 sets, daily range): BP systolic 99–141; BP diastolic 48–87; PULSE 86–103; RESP 16–18; TEMP 36.6–37.1; O2SAT 89–97; BMI 21.4
--- NOTE | 2025-05-25 00:27 | EDS_ITS ---
HPI History of Present Illness Chief Complaint: ETOH Intox Narrative Narrative: Chief complaint and HPI: Requesting alcohol detox. 50-year-old female with past medical history of alcohol abuse, pancreatitis, HTN presents requesting alcohol detox. Patient states that she is a daily drinker. Mostly drinks vodka. States that her has been chronically ill recently in which she has cut down on her alcohol intake. She states that she did drink more today than she usually does, 1/5. She endorses nausea and anxiousness. She is unsure if she is ever withdrawing from alcohol in the past that she has never gone through an alcohol detox program. She denies any fever, chills, shortness of breath, chest pain, abdominal pain. Denies any illicit drug use. Review of systems: See HPI Medications: As listed on the chart Allergies: As listed on the chart PFSH: Per chart Vital signs: As listed on the chart. Reviewed. Physical exam: Gen: A&O x3, NAD Head: Normocephalic, atraumatic Eyes: No sclera icterus, conjunctiva clear, PERRL ENT: Mildly dry mucous membranes Neck: Trachea midline, No JVD CV: RRR, no murmurs, no peripheral edema Resp: Lungs CTA BL, no w/r/c GI: Abd soft, non-distended, non-tender, no r/r/g Musc: Full ROM, no deformity Skin: Warm, dry Neuro: Alert, oriented, grossly intact, sensation intact Psych: Cooperative, appropriate mood and affect [facility] Medical History Pancreatitis Hypokalemia Nausea & vomiting Intractable abdominal pain Strain of left foot Plantar fasciitis of left foot Acute otitis media, right Contact with or exposure to other viral diseases URI (upper respiratory infection) Alcohol abuse GERD (gastroesophageal reflux disease) CPAP (continuous positive airway pressure) dependence Smoker COPD (chronic obstructive pulmonary disease) Myocardial infarct Seizures History of left heart catheterization (LHC) (~11/19/22) Sleep apnea Pancreatitis Acute lumbar myofascial strain Strain of left hip Depression Anxiety Diabetes HTN (hypertension) Type 2 diabetes mellitus Home Medications ?Medication ?Instructions ?Recorded ?Last Taken ?Type metformin 500 mg tablet 500 ea PO BID DIABETES 10/3111/17/22 21:30 History aspirin 81 mg chewable tablet 81 mg PO DAILY@0800 #30 tabs 11/19/22 04/26/25 Rx bupropion HCl 150 mg 24 hr tablet, 150 mg PO DAILY Unknown History extended release montelukast 10 mg tablet 10 mg PO DAILY 04/09/23 Unkn own History (Singulair) pantoprazole 40 mg tablet,delayed 40 mg PO BID 3 Unknown History release cholecalciferol (vitamin D3) 50 50 mcg PO DAILY Unknown History mcg (2,000 unit) capsule magnesium 250 mg tablet 250 mg PO DAILY 08/25/23 Unk nown History albuterol sulfate 90 mcg/actuation 2 puff inhalation Q 6H PRN 04/27/24 Unknown Rx aerosol inhaler shortness of breath or wheez ing #8.5 grams empagliflozin 25 mg tablet 25 mg PO DAILY 11/12/24 Unk nown History (Jardiance) metoprolol succinate 25 mg 25 mg PO DAILY 11/12/24 Unk nown History tablet,extended release 24 hr amlodipine 5 mg tablet 5 mg PO DAILY 04/04/25 Unkno wn History buspirone 5 mg tablet 5 mg PO TID PRN anxiety 06/22 Unknown History hydroxyzine HCl 10 mg tablet 10 mg PO TID PRN PRN anxi ety 04/04/25 Unknown History citalopram 40 mg tablet 40 mg PO DAILY 04/11/25 Unkn own History levocetirizine 5 mg tablet 5 mg PO DAILY 04/11/25 Unkn own History lisinopril 40 mg tablet 40 mg PO DAILY 04/11/25 Unkn own History atorvastatin 40 mg tablet 40 mg PO DAILY #30 tabs 03/29 08/23 Unknown Rx budesonide-formoterol HFA 160 2 puff inhalation BID SO B 04/26/25 Unknown History mcg-4.5 mcg/actuation aerosol inhaler glimepiride 4 mg tablet 4 mg PO DAILY #30 tabs 05/06 Unknown Rx Allergy/AdvReac Type Severity Reaction Status Date / Time No Known Allergies Allergy Verified 05/24/25 23:11 Family History Grandfather CVA (cerebral vascular accident) Diabetes Mother Cancer Father Hypertension Grandmother Hypertension Diabetes Surgical History History of cholecystectomy H/O tooth extraction plantar fasciitis release Social History (Updated 05/25/25 @ 01:[address] Myra Null MD) household members: spouse and children housing: house pets and animals: Yes Smoking Status: Light Smoker (<10/day) alcohol intake: current alcohol intake frequency: 3 or more drinks per day Alcohol type: hard liquor details: At least 1/5 vodka daily, recently increased EtOH intake. substance use type: does not use EXAM Physical Exam Const Vital Signs: 05/24/25 23:09 Temperature 98 F Temperature Source Temporal Pulse Rate 123 H Respiratory Rate 14 Blood Pressure 137/94 H Blood Pressure Mean 108 Pulse Ox 93 Oxygen Delivery Method Room Air MDM MDM MDM Narrative Medical decision making narrative: 50-year-old female with past medical history of alcohol abuse, pancreatitis, HTN presents requesting alcohol detox. Patient's last alcoholic drink was today. Drank 1/5 of vodka. Endorses nausea and anxiousness. Differential diagnosis includes but is not limited to alcohol intoxication, electrolyte abnormality, dehydration, requesting alcohol detox. NS bolus, Zofran, Ativan ordered for symptoms. Patient placed on CIWA. Laboratory workup ordered. CBC without leukocytosis or anemia. CMP consistent with alcoholic ketosis. No significant electrolyte abnormality or LUI on CMP. Patient has AST transaminitis of 45, this is consistent with her alcohol abuse. No hyperbilirubinemia. Serum negative. UA positive for dehydration but negative for UTI. Urine drug screen positive for barbiturates and benzodiazepine. I did give her Ativan. Alcohol level 312. Patient will warrant admission for detox. I spoke with the hospitalist who accepted admission. Impression: 1. Requesting alcohol detox 2. Alcohol intoxication with history of alcohol abuse 3. Alcoholic ketosis with mild dehydration 4. Alcoholic transaminitis Lab Data Labs: Laboratory Results - last 24 hr 05/24/25 23:45 WBC 8.7 RBC 3.82 L Hgb 13.2 Hct 38.3 MCV 100.3 H MCH 34.6 H MCHC 34.5 RDW Std Deviation 47.9 H RDW Coeff of Braxton 13.1 Plt Count 187 MPV 10.0 Immature Gran % (Auto) 0.100 Neut % (Auto) 49.9 Lymph % (Auto) 41.1 H Maries % (Auto) 7.7 Eos % (Auto) 0.7 Baso % (Auto) 0.5 Absolute Neuts (auto) 4.3 Absolute Lymphs (auto) 3.57 Nucleated RBC % 0 Sodium 140 Potassium 4.1 Chloride 98 Carbon Dioxide 20.9 L Anion Gap 21 H BUN 8 Creatinine 0.72 Estim Creat Clear Calc 82.51 Est GFR (MDRD) Non-Af 104 BUN/Creatinine Ratio 11.4 Glucose 84 Calcium 8.7 Total Bilirubin 0.37 AST 45 H ALT 29 Alkaline Phosphatase 115 H Total Protein 7.5 Albumin 4.1 Globulin 3.4 Albumin/Globulin Ratio 1.2 Serum , Qual NEGATIVE Urine Color Yellow Urine Clarity Clear Urine pH 6.0 Ur Specific [place] 1.015 Urine Protein 30 H Urine Glucose (UA) Normal Urine Ketones 5 H Urine Occult Blood 10 H Urine Nitrite Negative Urine Bilirubin Negative Urine Urobilinogen Normal Ur Leukocyte Esterase 25 H Urine RBC 0-5 SEEN Urine WBC 0-5 SEEN Ur Squamous Epith Cells 5-10 SEEN Urine Bacteria 0 SEEN Urine Mucus 0 SEEN Urine Opiates Screen NEGATIVE U Buprenorphine Qual NEGATIVE Ur Oxycodone Screen NEGATIVE Urine Methadone Screen NEGATIVE Urine Fentanyl Screen NEGATIVE Ur Barbiturates Screen PRESUMPTIVE POSITIVE Ur Phencyclidine Scrn NEGATIVE Ur Amphetamines Screen NEGATIVE U Benzodiazepines Scrn PRESUMPTIVE POSITIVE Urine Cocaine Screen NEGATIVE U Cannabinoids Screen NEGATIVE Ethyl Alcohol 312.0 H* Discharge Plan Disposition Disposition: Acute Care Hospital [facility] Discharge Date/Time: 05/25/25 02:28
[2025-05-25 00:37] LABS: Absolute Lymphocyte Count 3.57 X10^3/uL (0.83-4.51); Absolute Neutrophil Count 4.3 X10^3/uL (2.0-7.7); Basophil# 0.04 X10^3/uL; Basophil% 0.5 % (0-1); Eosinophil# 0.06 X10^3/uL; Eosinophils% 0.7 % (0-5); Hematocrit 38.3 % (37-47); Hemoglobin 13.2 g/dL (12.0-15.0); Lymphocyte # 3.57 X10^3/ul (0.83-4.51); Lymphocyte % 41.1 % (19-41); Mean Corp Hgb Conc 34.5 g/dL (32-36); Mean Corpuscular Hgb 34.6 pg (27.0-32.0); Mean Corpuscular Volume 100.3 fL (81-99); Monocyte# 0.67 X10^3/uL; Monocyte% 7.7 % (0-10); NRBC Flagged by Analyzer 0 % (0-5); Neutrophil # 4.34 X10^3/uL (2.7-7.7); Neutrophil % 49.9 % (47-70); Platelet Count 187 K/mm3 (150-450); RBC Distribution Width CV 13.1 % (11.6-14.6); RBC Distribution Width SD 47.9 fl (35.1-43.9); Red Blood Count 3.82 M/mm3 (4.2-5.4); White Blood Count 8.7 K/mm3 (4.4-11.0)
--- NOTE | 2025-05-25 00:37 | PCM.HP.STD ---
HPI - General General Date of Admission: 05/25/25 Date of Service: 05/25/25 Chief Complaint: EtOH detoxification request, EtOH withdrawal. HPI Narrative The patient is a 50 y/o F w/ PMHx: MOUNIKA on CPAP, COPD, Tobacco use, Chronic pancreatitis, Alcohol withdrawal seizures history per chart, HTN, HLD, Anxiety and Depression, GERD, Diabetes mellitus type II, EtOH abuse (>1/5 vodka daily) who presents to the [facility] ED on 05/25/25 with history of requesting alcohol detoxification with last alcohol intake just prior to ED arrival appearing to still be intoxicated with no overt evident withdrawal symptoms although patient in the ED does several times twitch her arms and seemingly look unresponsive but is easily arousable and will sit up quickly and talk but is requesting as noted alcohol withdrawal treatment. She does report that recently over the last several weeks she has increased her alcohol intake. Workup in the ED included T98, heart 123, BP 137/94, respiratory rate 14, 93% on room air, most recent repeat vitals T98.3, heart rate 99, BP 141/63, respiratory rate 14, 95% on room air, CBC with WC 8.7, hemoglobin 13.2, platelet 187 without marked shift, CMP with come dioxide 20.9, anion gap 21, BUN/creatinine 8/0.72, GFR 104, AST 45, alk phos 115, negative serum testing, urinalysis not marked appearing. In the ED patient ministered 1 normal saline, Ativan 1 mg IV x 1, Zofran 4 mg IV x 1. [facility] Medical History Pancreatitis Hypokalemia Nausea & vomiting Intractable abdominal pain Strain of left foot Plantar fasciitis of left foot Acute otitis media, right Contact with or exposure to other viral diseases URI (upper respiratory infection) Alcohol abuse GERD (gastroesophageal reflux disease) CPAP (continuous positive airway pressure) dependence Smoker COPD (chronic obstructive pulmonary disease) Myocardial infarct Seizures History of left heart catheterization (LHC) (~11/19/22) Sleep apnea Pancreatitis Acute lumbar myofascial strain Strain of left hip Depression Anxiety Diabetes HTN (hypertension) Type 2 diabetes mellitus Home Medications ?Medication ?Instructions ?Recorded ?Last Taken ?Type metformin 500 mg tablet 500 ea PO BID DIABETES 10/31/22 11/17/22 21:30 History aspirin 81 mg chewable tablet 81 mg PO DAILY@0800 #30 tabs 11/19/22 04/26/25 Rx bupropion HCl 150 mg 24 hr tablet, 150 mg PO DAILY 01/21/23 Unknown History extended release montelukast 10 mg tablet 10 mg PO DAILY 04/09/23 Unknown History (Singulair) pantoprazole 40 mg tablet,delayed 40 mg PO BID 05/04/23 Unknown History release cholecalciferol (vitamin D3) 50 50 mcg PO DAILY 08/25/23 Unknown History mcg (2,000 unit) capsule magnesium 250 mg tablet 250 mg PO DAILY 08/25/23 Unknown History albuterol sulfate 90 mcg/actuation 2 puff inhalation Q6H PRN 04/27/24 Unknown Rx aerosol inhaler shortness of breath or wheezing #8.5 grams empagliflozin 25 mg tablet 25 mg PO DAILY 11/12/24 Unknown History (Jardiance) metoprolol succinate 25 mg 25 mg PO DAILY 11/12/24 Unknown History tablet,extended release 24 hr amlodipine 5 mg tablet 5 mg PO DAILY 04/04/25 Unknown History buspirone 5 mg tablet 5 mg PO TID PRN anxiety 04/04/25 Unknown History hydroxyzine HCl 10 mg tablet 10 mg PO TID PRN PRN anxiety 04/04/25 Unknown History citalopram 40 mg tablet 40 mg PO DAILY 04/11/25 Unknown History levocetirizine 5 mg tablet 5 mg PO DAILY 04/11/25 Unknown History lisinopril 40 mg tablet 40 mg PO DAILY 04/11/25 Unknown History atorvastatin 40 mg tablet 40 mg PO DAILY #30 tabs 04/16/25 Unknown Rx budesonide-formoterol HFA 160 2 puff inhalation BID SOB 04/26/25 Unknown History mcg-4.5 mcg/actuation aerosol inhaler glimepiride 4 mg tablet 4 mg PO DAILY #30 tabs 05/06/25 Unknown Rx Allergy/AdvReac Type Severity Reaction Status Date / Time No Known Allergies Allergy Verified 05/24/25 23:11 Family History Grandfather CVA (cerebral vascular accident) Diabetes Mother Cancer Father Hypertension Grandmother Hypertension Diabetes Surgical History History of cholecystectomy H/O tooth extraction plantar fasciitis release Social History (Updated 05/25/25 @ 01:[address] Myra Null MD) household members: spouse and children housing: house pets and animals: Yes Smoking Status: Light Smoker (<10/day) alcohol intake: current alcohol intake frequency: 3 or more drinks per day Alcohol type: hard liquor details: At least 1/5 vodka daily, recently increased EtOH intake. substance use type: does not use ROS ROS Narrative Admission Review of Systems: CONSTITUTIONAL: No weight loss, fever, chills, weakness or fatigue. HEENT: Eyes: No visual loss, blurred vision, double vision or yellow sclerae. Ears, Nose, Throat: No hearing loss, sneezing, congestion, runny nose or sore throat. SKIN: No rash or itching, lesions, wounds. CARDIOVASCULAR: No chest pain, chest pressure or chest discomfort, palpitations, edema, orthopnea, syncopal events. RESPIRATORY: No shortness of breath, cough or sputum, wheezing, hemoptysis. GASTROINTESTINAL: No anorexia, nausea, vomiting or diarrhea, abdominal pain, melena, BRBPR. GENITOURINARY: No dysuria, frequency, urgency or retention. NEUROLOGICAL: + Intoxicated. Does have a history of previous alcohol withdrawal seizures. In the ED does have some atypical extremity movements but this is purposeful and appears patient driven/pseudo. No headache, dizziness, syncope, paralysis, ataxia, numbness or tingling in the extremities, focal weakness, change in bowel or bladder control. MUSCULOSKELETAL: + muscle, back pain, joint pain or stiffness. HEMATOLOGIC: No anemia, bleeding or bruising. LYMPHATICS: No enlarged nodes. No history of splenectomy. PSYCHIATRIC:+ History of anxiety and depression. ENDOCRINOLOGIC: No reports of sweating, cold or heat intolerance. No polyuria or polydipsia. ALLERGIES: + History of allergic rhinitis. Vital Signs Vital Signs Vital Signs: 05/24/25 23:09 Temperature 98 F Temperature Source Temporal Pulse Rate 123 H Respiratory Rate 14 Blood Pressure 137/94 H Blood Pressure Mean 108 Pulse Ox 93 Oxygen Delivery Method Room Air Weight Weight: 126 lb 8.725 oz Body Mass Index (BMI) 21.7 Physical Exam Narrative Physical Examination: General: Awake, alert, oriented x 3 and cooperative, seated upright in ED bed, intermittently appearing more lethargic but very quick to recover and began discussions again or to awaken when she wants to try mitten to the conversation. Skin: Normal color, normal turgor, no icterus, no cyanosis except occasional stage ecchymoses, abrasion. HEENT: AT/NC, EOMI, PERRLA, mildly dry MM, no carotid bruits or JVD noted. Lungs: CTA bilaterally, moderate effort, mild decrease BL bases, no rales, ronchi or wheezing. Heart: Improved, regular rate and rhythm; no gallop, rub audible. Abdomen: Soft, NTTP, ND, normal BS, + HM. Extremities: No cyanosis, clubbing, or edema. Neurological: Patient awake, alert, oriented as noted, cognitive function suspect likely near baseline intact although she does have intermittent periods where she appears to be nearly play acting at being lethargic quickly awakening without issue and when she wants to enter jacked in the conversation, pupils equally reactive to light and accommodation, cranial nerves grossly normal, moving all 4 extremities, no focal deficits, strength preserved, no evidence of any tremulousness, currently appears intoxicated. Psychiatric: Affect appears intermittently calm and normal interaction, varying with attempts to appear to be lethargic, no acute evidence of depressive or anxiety feelings but does have underlying history. Results Lab / Micro Data 05/24/25 23:45 05/24/25 23:45 Assessment & Plan Assessment/Plan (1) Admitted to alcohol detoxification center: PLAN: Plan The patient is a 50 y/o F w/ PMHx: MOUNIKA on CPAP, COPD, Tobacco use, Chronic pancreatitis, Alcohol withdrawal seizures history per chart, HTN, HLD, Anxiety and Depression, GERD, Diabetes mellitus type II, EtOH abuse (>1/5 vodka daily) who presents to the [facility] ED on 05/25/25 with history of requesting alcohol detoxification with last alcohol intake just prior to ED arrival appearing to still be intoxicated. #1. Acute EtOH Withdrawal: Will admit to [facility], routine labs obtained in the ED upon presentation and not marked appearing. Given interest in sobriety, will initiate and continue on protocol with taper course of Phenobarbital, as needed gabapentin, Catapres, Bentyl, Vistaril, IV fluids, IV antiemetics, Tylenol as needed for pain. Will consult Case management for assistance for transition to next level of rehabilitation care. Mag, phos pending. Maintain on CIWA protocol concurrently. #2. Anxiety and depression: Will continue patient home citalopram, buspirone, bupropion home regimen, would benefit greatly from ongoing follow-up and counseling outpatient given especially alcohol abuse history. #3. Diabetes mellitus type II: Hold oral home regimen, ADA diet, accu checks w/ ISS. #4. Chronic COPD with allergic rhinitis: Will temporarily hold home inhalers in the interim transition to ATC budesonide therapy, PRN albuterol, HOB, IS parameters, continue home montelukast regimen as well as levocetirizine. #5. Hypertension: Continue home regimen including metoprolol, lisinopril, PRN hydralazine. #6. Hyperlipidemia: Will continue patient on statin therapy. #7. Tobacco Abuse: Encouraged cessation, inpatient consultation per RT, NR if desired. #8. GERD: Will continue patient on PPI. #9. MOUNIKA: CPAP nightly. #10. DVT prophylaxis: Low risk for type of admission presentation. Charges/Coding Visit Charges Inpatient E&M: 69557 Init Hosp L3
--- OUTSIDE RECORDS SUMMARY | 2025-05-25 00:40 | XMS RPT_ITS | CCD ---
Author Organization [facility] Providers Care Emergency Medicine Medical Director Name Role Phone Required, No Pcp Unavailable Unavailable Noe Egnel Unavailable Ihsan Aguilar DO Primary Care Provider [...] Provider Dr. Young Kiran Referring Provider Ganesh CISCO CERTIFIED NETWORK ASSOCIATE, CISCO CERTIFIED NETWORK ASSOCIATE-C Jim Attending Provider Jose, DO Milana M Primary Care Provider Jose, DO Milana M Referring Provider LUIS Rosario Attending Provider Jose, DO Milana M Primary Care Provider Jose, DO Milana M Primary Care Provider Jose, DO Milana M Referring Provider LUIS Rosario Attending Provider Ganesh CISCO CERTIFIED NETWORK ASSOCIATE, CISCO CERTIFIED NETWORK ASSOCIATE-C Jim Attending Provider LUIS Gramajo Attending Provider Jose, DO Milana M Primary Care Provider Jose, DO Milana M Referring Provider LUIS Gramajo Attending Provider Dr. Jose Taylor Attending Provider Ihsan Aguilar DO Primary Care Provider IHSAN AGUILAR Primary Care Unavailable Sudha LEBLANC, Abisai Primary Care Provider [phone] Imani Knight DO Emergency Provider Dr. Imani Knight DO Attending Provider Dr. Francisco Colon MD Emergency Provider Dr. Francisco Colon MD Attending Provider Dr. Humphrey Garcia DO Referring Provider Dr. Humphrey Garcia DO Emergency Provider nAtwan LEBLANC, Dr. [place] Admit Provider Ha Hannah MD, Dr. [place] Attending Provider Dashawn Moncada MD, Dr. [place] Other Provider Unavailab rob Becker DO, Dr. Cavanaugh Attending Provider [phone] Lucia LEBLANC, Dr. Lemos Other Provider Unavailable Antwan LEBLANC, Dr. [place] Attending Provider Dashawn Myers MD, Dr. Lemos Attending Provider UnavailHumphrey Duval Referring Unavailable Moncada, Achintya Consulting Unavailable Moncada, Achintya Admitting Unavailable Sudha, Chalon Primary Care Unavailable Mao Becker Attending Unavailable Canelo Myers Consulting Unavailable Mao Becker Consulting Unavailable Canelo Myers Attending Unavailable Humphrey Garcia Referring Unavailable Moncada, Achintya Admitting Unavailable Moncada, Achintya Consulting Unavailable Mao Becker Attending Unavailable Sudha, Chalon Primary Care Unavailable Canelo Myers Consulting Unavailable Sudha, Chalon Referring Unavailable Sudha, Chalon Attending Unavailable Sudha, Chalon Primary Care Unavailable Francisco Colon Attending Unavailable Sudha, Chalon Primary Care Unavailable Rober Concepcion Attending Unavailable Sudha, Chalon Primary Care Unavailable Sudha, Chalon Primary Care Unavailable Shane Jacobs Attending Unavailable Moncada, Achintya Attending Unavailable Sudha, Chalon Primary Care Unavailable Milana Garcia Referring Unavailable Cassandra Loredo Attending Unavail able LatrellIvon Attending Unavailable Sudha, Chalon Primary Care Unavailable Sudha, Chalon Referring Unavailable Sudha, Chalon Primary Care Unavailable Jose Taylor Attending Unavailable Sudha, Chalon Primary Care Unavailable Lorenzo Stewart Attending Unavailable Sudha, Chalon Referring Unavailable Sudha, Chalon Primary Care Unavailable Amanda SMITH, Cassandra Pederson Attending Unavail able Cassandra Loredo Referring Unavail able LatrellIvon Referring Unavailable Sudha, Chalon Primary Care Unavailable LatrellJosepyn Attending Unavailable Sudha, Chalon Primary Care Unavailable Sudha, Chalon Referring Unavailable Sudha, Chalon Attending Unavailable Imani Knight Attending Unavailable Sudha, Chalon Primary Care Unavailable Medications Current Medications Medication Drug Class(es) Dates Sig (Normalized) Sig (Original) [id number] 200 actuat albuterol 0.09 mg/actuat metered dose [...] 0 Active amLODIPine 5 mg oral tablet (11 sources) Dihydropyridine Calcium Channel Lovely Start: 04-04-2025 [...] once daily. aspirin 81 mg chewable tablet (18 sources) Platelet Aggregation Inhibitor, Nonsteroidal Anti-inflammatory Drug Start: 11-19-2022 take 1 tablet by mouth once daily Aspirin 81 mg Tablet,Chewable Active 81 mg PO DAILY@0800 30 November 19, 2022 1:00am Budesonide-Formote rol (18 sources) Corticosteroid, beta2-Adrenergic Agonist Start: 04-26-2025 Budesonide-Formoter ol 160-4.5 mcg/actuation HFA aerosol inhaler Active 2 [...] hydrochloride 150 mg extended release oral tablet (20 sources) Aminoketone Start: 06-07-2020 take 1 tablet by mouth once daily Bupropion Hcl 150 mg tablet extended release 24 hr Active 150 mg PO DAILY January 21, 2023 1:00am Comment on above: Take 1 tablet by jean once daily. busPIRone hydrochloride 5 mg oral tablet (5 sources) Start: 04-04-2025 take 1 tablet by mouth three times daily Buspirone 5 mg tablet Active 5 mg PO THREE TIMES A DAY April 04, 2025 12:00am Start: 02-23-2021 take 15 mg by mouth twice isabel y Buspirone Active 15 MG PO TWICE A DAY February 23, 2021 9:15am cholecalciferol 0.05 mg oral capsule (7 sources) Vitamin D Start: 08-25-2023 take 1 capsule by mouth once daily Cholecalciferol (Vitamin D3) 50 mcg (2,000 unit) capsule Active 50 ug PO DAILY August 25, 2023 12:00am citalopram 40 mg oral tablet (20 sources) Serotonin Reuptake Inhibitor Start: 04-11-2025 take [...] on above: Take 1 tablet by jean three times daily as needed for muscle spasm. empagliflozin 25 mg oral tablet (20 sources) Sodium-Glucose Cotransporter 2 Inhibitor Start: 11-12-2024 take 1 tablet by mouth once daily Empagliflozin (Jardiance) 25 mg tablet Active 25 mg PO [...] 25, 2019 12:00am February 23, 2021 9:17am glimepiride 4 mg oral tablet (1 source) Sulfonylurea Start: 05-06-2025 take 1 tablet by mouth once daily Glimepiride 4 mg tablet Active 4 mg PO DAILY May 06, 2025 12:00am hydrOXYzine hydrochloride 10 mg oral tablet (8 sources) Antihistamine Start: 04-04-2025 take 1 tablet [...] PO DAILY April 11, 2025 12:00am Start: 08-22-2024 End: 02-26-2025 take [...] once daily. montelukast 10 mg oral tablet (17 sources) Leukotriene Receptor Antagonist Start: 2 take 1 tablet by mouth once daily Montelukast (Singulair) 10 mg Tablet Active 10 mg PO DAILY April 09, 2023 12:00am Multivitamin preparation (1 source) Start: 2 take 1 tablet by mouth once daily Multivitamin Active 1 TABLET PO DAILY February 22, 2022 12:47pm Brocton-3 Fatty Acids (3 sources) Start: 3 take 1000 mg by mouth once daily Brocton-3 Fatty Acids Active 1000 MG PO DAILY August 24, 2023 11:00pm Start: 08-25-2023 take 1000 mg by mouth once colleen ly Brocton-3 Fatty Acids Active 1000 MG PO DAILY August 25, 2023 12:00am omeprazole 20 mg delayed release oral capsule (1 source) Proton Pump Inhibitor Start: 02-22-2022 take 20 mg by mouth once daily Omeprazole Active 20 MG PO DAILY February 22, 2022 12:47pm pantoprazole 40 mg delayed release oral tablet (20 sources) Proton Pump Inhibitor Start: 05-04-2023 take 1 tablet by mouth twice daily [...] tablet (1 source) Aldosterone Antagonist Start: 02-24-20 take 25 mg by mouth once daily [...] mg / clavulanate 125 mg oral tablet (16 sources) Penicillin-class Antibacterial Start: 09-15-2023 End: 09-27-2023 Amoxicillin-Pot Clavulanate 875-125 mg tablet Discontinued 1 {tbl} PO TWICE A DAY September 15, 2023 12:00am September 27, 2023 3:27pm Start: 09-15-2023 End: 09-27-2023 take 1 tablet by mouth twice daily Amoxicillin-Pot Clavulanate Discontinued 1 TABLET PO TWICE A DAY September 15, 2023 12:00am September 27, 2023 3:27pm Start: 07-01-2023 End: 07-11-2023 Amoxicillin-Pot Clavulanate 875-125 mg tablet Discontinued 1 {tbl} PO Q12H 20 July 01, 2023 12:00am July 10, 2023 12:00am July 11, 2023 12:03am Start: 07-01-2023 End: 07-11-2023 take 1 tablet by mouth every twelve hours Amoxicillin-Pot Clavulanate Discontinued 1 TABLET PO Q12H 17 09July 01, 2023 12:00am July 11, 2023 12:03am atorvastatin 40 mg oral tablet (14 sources) HMG-CoA Reductase Inhibitor Start: 08-26-2023 End: 04-16-2025 take 1 tablet by mouth once daily Atorvastatin 40 mg tablet Discontinued 40 mg PO DAILY April 18, 2024 2:56pm April 16, 2025 12:53pm clindamycin 300 mg oral capsule (6 sources) Lincosamide Antibacterial Start: 09-27-2023 End: 08-22-2024 take 1 capsule by mouth three times daily Clindamycin Hcl 300 mg capsule Discontinued 300 mg PO THREE TIMES A DAY September 27, 2023 12:00am August 22, 2024 10:01am dextromethorphan hydrobromide 2 mg/ml / guaiFENesin 20 mg/ml oral solution (10 sources) Uncompetitive G-nfpzrp-W-aspartat e Receptor Antagonist, Sigma-1 Agonist Start: 07-01-2023 [...] 2023 12:00am diazePAM 5 mg oral tablet (4 sources) Benzodiazepine Start: 07-11-2024 End: 08-28-2024 take 1 tablet by mouth every eight hours as needed for muscle spasms Diazepam 5 mg tablet Discontinued 5 mg PO EVERY 8 HOURS as needed for Muscle Spasm 15 July 11, 2024 12:00am August 28, 2024 1:30pm doxycycline hyclate 100 mg oral capsule (12 sources) Tetracycline-class Drug Start: 04-27-2024 End: 05-04-2024 take 1 capsule by mouth twice daily Doxycycline Hyclate 100 mg capsule Discontinued 100 mg PO TWICE A DAY 14 April 27, 2024 12:00am May 03, 2024 12:00am [...] A DAY April 09, 2023 12:00am Magnesium (11 sources) Start: 04-04-2025 End: 04-11-2025 take 1 [...] 12:00am magnesium oxide 250 mg oral tablet (3 sources) Start: 04-11-2025 End: 04-26-2025 take 1 tablet by mouth twice daily Magnesium Oxide 250 mg magnesium tablet Discontinued 250 mg PO TWICE A DAY April 11, 2025 12:00am April 26, 2025 4:05pm meloxicam 15 mg oral tablet (4 sources) Nonsteroidal Anti-inflammatory Drug Start: 08-28-2024 End: [...] 17, 2023 12:00am February 18, 2023 12:05am Brocton-3 Fatty Acids 1,000 mg capsule (4 sources) Start: 08-25-2023 End: 05-06-2025 take 1 capsule by mouth once daily Brocton-3 Fatty Acids 1,000 mg capsule Discontinued 1000 mg PO DAILY August 25, 2023 12:00am May 06, 2025 1:18pm Start: 08-25-2023 take 1 capsule by mo cox branson once daily Brocton-3 Fatty Acids 1,000 mg capsule Active 1000 mg PO DAILY August 25, 2023 12:00am ondansetron 4 mg disintegrating oral tablet (20 sources) Serotonin-3 Receptor Antagonist Start: 04-04-2025 End: 04-26-2025 take 1 tablet by mouth every eight hours as needed for nausea Ondansetron 4 mg tablet,disintegrating Discontinued 4 mg PO EVERY 8 HOURS NEEDED as needed for Nausea April 04, 2025 12:00am April 26, 2025 6:30pm Start: 04-27-2024 End: 08-22-2024 take 1 tablet [...] Comment on above: Take 1 tablet by [facility] every 6 hours as needed for Nausea/Vomiting. phenazopyridine hydrochloride 95 mg oral tablet (7 sources) Start: 023 End: 025 take 1 tablet by mouth twice daily Phenazopyridine 95 mg tablet Discontinued 95 mg PO TWICE A DAY August 25, 2023 12:00am April 11, 2025 10:18pm potassium chloride 20 meq powder for oral solution (4 sources) Start: End: take 20 mEq by mouth once daily Potassium Chloride 20 mEq packet Discontinued 20 meq PO DAILY 5 April 04, 2025 12:00am April 26, 2025 4:05pm predniSONE 10 mg oral tablet (9 sources) Start: End: take 1 tablet by mouth once daily [...] with food. raNITIdine 150 mg oral tablet (20 sources) Histamine-2 Receptor Antagonist Start: 9 End: 1 take 1 tablet by mouth twice daily Ranitidine Hcl 150 MG tablet Discontinued 150 mg PO TWICE A DAY July 25, 2019 12:00am February 23, 2021 9:16am tiZANidine 4 mg oral tablet (4 sources) Central alpha-2 Adrenergic Agonist Start: 4 End: 5 take 1 tablet by mouth twice daily as needed Tizanidine 4 mg tablet Discontinued 4 mg PO TWICE A DAY as needed August 28, 2024 12:00am April 04, 2025 2:34pm varenicline 1 mg oral tablet (5 sources) Partial Cholinergic Nicotinic Agonist Start: 4 [...] [Acute bronchitis, unspecified] Episodic Acute myocardial infarction (20 sources) Myocardial infarction; Translations: [Non-ST elevation (NSTEMI) [...] Episodic Chronic obstructive pulmonary disease and bronchiectasis (20 sources) Bronchitis; Translations: [Bronchitis, not specified as acute or chronic] 09-06-2018 Episodic Conditions associated with dizziness or vertigo (20 sources) Vertigo; Translations: [Dizziness and giddiness] 04-10-2023 Episodic Coronary atherosclerosis and other heart disease (20 sources) Acute coronary syndrome; Translations: [Acute ischemic heart disease, unspecified] Chronic Diabetes mellitus with complications (19 sources) Hyperglycemia due to diabetes mellitus; Translations: [Type 2 diabetes mellitus with hyperglycemia] 09-14-2022 Chronic Diabetes mellitus without complication (20 sources) Type 2 diabetes mellitus; Translations: [Type 2 diabetes mellitus without complications] Onset: 02-19-2016 02-19-2016 Chronic Disorders of lipid metabolism (20 sources) Hypertriglyceridemi a; Translations: [Pure hyperglyceridemia] Onset: 09-13-2024 Chronic Disorders of teeth and jaw (20 sources) Edentulous; Translations: [Complete loss of teeth, unspecified cause, unspecified class] 07-25-2019 Chronic E Codes: Fall (3 sources) Fall; Translations: [Unspecified fall, initial encounter] [...] Chronic Immunizations and screening for infectious disease (7 sources) Contact with or exposure to other viral diseases 09-15-2023 Episodic Mood disorders (3 sources) Depressive disorder; Translations: [Depression] Onset: 08-15-2013 10-09-2014 Chronic Nausea and vomiting (13 sources) Nausea; Translations: [Nausea] 04-22-2024 Episodic Nonspecific [...] 08-31-2019 08-31-2019 Chronic Other connective tissue disease (5 sources) Plantar fasciitis of left foot; Translations: [Plantar fascial fibromatosis] 03-22-2024 Episodic Other connective tissue disease (1 source) Plantar fascial fibromatosis; Translations: [Plantar fascial fibromatosis] 03-22-2024 Episodic Other diseases of kidney and ureters (16 sources) Acute renal insufficiency; Translations: [Disorder of kidney and ureter, unspecified] 03-22-2023 Episodic Other gastrointestinal disorders (20 sources) History of pancreatitis; Translations: [Personal history of other diseases of the digestive system] 09-26-2014 Episodic Other lower respiratory disease (1 source) Wheezing; Translations: [Wheezing] 04-22-2024 Episodic Other lower respiratory disease (4 sources) Dyspnea; Translations: [Shortness of breath] 11-20-2024 Episodic Other lower respiratory disease (3 sources) History of chronic obstructive airway disease; Translations: [Personal history of other diseases of the respiratory system] 04-12-2025 Episodic Other non-traumatic joint disorders (2 sources) Hip pain; Translations: [Pain in left hip] Episodic Other nutritional; endocrine; and metabolic disorders (4 sources) Hypomagnesemia; Translations: [Hypomagnesemia] 04-04-2025 Chronic Other nutritional; endocrine; and metabolic disorders (3 sources) H/O: diabetes mellitus; Translations: [Personal history of other endocrine, nutritional and metabolic disease] 04-12-2025 Episodic Other upper respiratory disease (1 source) Congestion of nasal sinus; Translations: [Nasal congestion] 04-22-2024 Episodic Other upper respiratory infections (20 sources) Acute sinusitis; Translations: [Acute sinusitis, unspecified] 07-01-2023 Episodic Otitis media and related conditions (20 sources) Acute bilateral otitis media ; Translations: [Otitis media, unspecified, bilateral] Episodic Pancreatic disorders (not diabetes) (17 sources) Chronic pancreatitis; Translations: [Other chronic pancreatitis] 07-29-2023 Chronic Pancreatic disorders (not diabetes) (6 sources) Pancreatitis; Translations: [Acute pancreatitis without necrosis or infection, unspecified] Onset: 05-09-2025 04-26-2025 Episodic Screening and history of mental health and substance abuse codes (11 sources) High alcohol level in blood; Translations: [Finding of alcohol in blood] 05-25-2023 Episodic Spondylosis; intervertebral disc disorders; other back problems (4 sources) Inflammation of sacroiliac joint; Translations: [Sacroiliitis, [...] Comment on above: EXAM Unclassified (1 source) IN TWO WEEKS Unclassified (1 source) Low back pain, unspecified; [...] conditions (not mental disorders or infectious disease) (5 sources) D-dimer above reference range; Translations: [Other [...] Onset: 3 10-31-2014 Episodic Residual codes; unclassified (18 sources) History of cardiac catheterization; Translations: [Other [...] Spondylosis; intervertebral disc disorders; other back problems (13 sources) Lumbar radiculopathy; Translations: [Radiculopathy, lumbar region] Onset: 4 08-28-2024 Episodic Unclassified (19 sources) plantar fasciitis release 06-18-2022 Results Test Name Value Interpretation Reference Range Facility Bedside Glucoseon 05-06-2025 FINGERSTICK GLU 358 mg/dL High 74-106 [facility] Comment on above: Result Comment: CHAUNCEY RIZO OF PATIENT CARE PER NURSING PROTOCOL Performed By: #### L 501.080 ####[facility] [address] [place], [address] FINGERSTICK GLU 219 mg/dL High 74-106 [facility] Comment on above: Result Comment: CHAUNCEY GEMENT OF PATIENT CARE PER NURSING PROTOCOL Performed By: #### L 501.080 ####[facility] [address] [place], [address] Discharge Instructionon 06-0 Discharge Instruction Normal [facility] at [facility] deOrdered By: Mao Becker on 05-06-2025 Glucose [Mass/Vol] 358 mg/dL High 74-106 [facility] Comment on above: MANAGEMENT OF PATIEN T CARE PER NURSING PROTOCOL Bedside Glucoseon 05-05-2025 FINGERSTICK GLU 331 mg/dL High -106 [facility] Comment on above: Result Comment: CHAUNCEY GEMENT OF PATIENT CARE PER NURSING PROTOCOL Performed By: #### L 501.080 ####[facility] [address] [place], [address] FINGERSTICK GLU 257 mg/dL High 74-106 [facility] Comment on above: Result Comment: CHAUNCEY GEMENT OF PATIENT CARE PER NURSING PROTOCOL Performed By: #### L 501.080 ####[facility] [address] [place], [address] FINGERSTICK GLU 346 mg/dL High -[address] [place] [address] Comment on above: Result Comment: CHAUNCEY GEMENT OF PATIENT CARE PER NURSING PROTOCOL Performed By: #### L 501.080 ####[facility] [address] [place], [address] FINGERSTICK GLU 221 mg/dL High -106 [facility] Comment on above: Result Comment: CHAUNCEY GEMENT OF PATIENT CARE PER NURSING PROTOCOL Performed By: #### L 501.080 ####[facility] [address] [place], [address] Absolute lymphocyte countOrd ered By: Canelo Myers on 06-06-2025 Lymphocytes Auto (Unsp spec) [#/Vol] 1.36 10*3/uL 0.83-4.51 [facility] Absolute neutrophil countOrd ered By: Canelo Myers on 05-04-2025 Neutrophils (Bld) [#/Vol] 3.4 10*3/uL 2.0-7.7 [facility] Anion gap in Serum or Plasma Ordered By: Canelo Myers on 05-04-2025 Anion gap [Moles/Vol] 11 mmol/L 5-15 [facility] Automated lymphocyte count a s percentage of total leukocytesOrdered By: Canelo Myers on 05-04-2025 Lymphocytes/100 WBC Auto (Unsp spec) 23.0 % 19-41 [facility] BUN/creatinine ratioOrdered By: Canelo Myers on 05-04-2025 Urea nitrogen/Creatinine [Mass ratio] 9.6 mg/mg Low 10-20 [facility] Basophil percentageOrdered B y: Canelo Myers on 05-04-2025 Basophils/100 WBC (Bld) 0.5 % 0-1 [facility] Bedside Glucoseon 05-04-2025 FINGERSTICK GLU 299 mg/dL High [address] [place] [address] Comment on above: Result Comment: CHAUNCEY GEMENT OF PATIENT CARE PER NURSING PROTOCOL Performed By: #### L 501.080 ####[facility] [address] [facility] [address] FINGERSTICK GLU 299 mg/dL High [address] [place] [address] Comment on above: Result Comment: CHAUNCEY GEMENT OF PATIENT CARE PER NURSING PROTOCOL Performed By: #### L 501.080 ####[facility] [address] [facility] [address] FINGERSTICK GLU 245 mg/dL High [address] [place] [address] Comment on above: Result Comment: CHAUNCEY GEMENT OF PATIENT CARE PER NURSING PROTOCOL Performed By: #### L 501.080 ####[facility] [address] [place], [address] FINGERSTICK GLU 170 mg/dL High [address] [place] [address] Comment on above: Result Comment: CHAUNCEY GEMENT OF PATIENT CARE PER NURSING PROTOCOL Performed By: #### L 501.080 ####[facility] [address] [place], [address] Bilirubin, totalOrdered By: Canelo Myers on 05-04-2025 Bilirubin [Mass/Vol] 0.35 mg/dL 0.00-1.30 [facility] CBC W/Diff, Automatedon Absolute Lymph 1.36 X10 3/uL Normal 0.83-4.51 [facility] Comment on above: Performed By: #### L 100.0100, [id number] ####[facility] [address] [place], [address] Absolute Neut 3.4 X10 3/uL Normal 2.0-7.7 [facility] Comment on above: Performed By: #### L 100.0100, [id number] ####[facility] [address] [place], [address] Basophils/100 WBC (Bld) 0.5 % Normal 0-1 [facility] Comment on above: Performed By: #### L 100.0100, [id number] ####[facility] [address] [place], [address] Eosinophils/100 WBC (Bld) 2.7 % Normal 0-5 [facility] Comment on above: Performed By: #### L 100.0100, [id number] ####[facility] [address] [place], [address] Erythrocyte distribution width (RBC) [Ratio] 12.8 % Normal 11.6-14.6 [facility] Comment on above: Performed By: #### L 100.0100, [id number] ####[facility] [address] [place], [address] Hematocrit (Bld) [Volume fraction] 30.6 % Low 37-47 [facility] Comment on above: Performed By: #### L 100.0100, [id number] ####[facility] [address] [place], [address] Hemoglobin (Bld) [Mass/Vol] 10.3 g/dL Low 12.0-15.0 [facility] Comment on above: Performed By: #### L 100.0100, [id number] ####[facility] [address] [place], [address] IG% 0.300 Normal 0.0-0.9 [facility] Comment on above: Result Comment: IG% - Immature Granulocytes (promyelocytes, myelocytes andmetamyelocytes) > 1% indicates that a LEFT SHIFT is Present. Performed By: #### L 100.0100, [id number] ####[facility] [address] [place], [address] Lymphocytes/100 WBC (Bld) 23.0 % Normal 19-41 [facility] Comment on above: Performed By: #### L 100.0100, [id number] ####[facility] [address] [place], [address] MCH (RBC) [Entitic mass] 35.8 pg High 27.0-32.0 [facility] Comment on above: Performed By: #### L 100.0100, [id number] ####[facility] [address] [place], [address] MCHC (RBC) [Mass/Vol] 33.7 g/dL Normal 32-36 [facility] Comment on above: Performed By: #### L 100.0100, [id number] ####[facility] [address] [place], [address] MCV (RBC) [Entitic vol] 106.3 fL High 81-99 [facility] Comment on above: Performed By: #### L 100.0100, [id number] ####[facility] [address] [place], [address] Monocytes/100 WBC (Bld) 15.4 % High 0-10 [facility] Comment on above: Performed By: #### L 100.0100, [id number] ####[facility] [address] [place], [address] Neutrophils/100 WBC (Bld) 58.1 % Normal 47-70 [facility] [facility] Comment on above: Performed By: #### L 100.0100, L500.4050 ####[facility] [address] [place], [address] Nucleated RBC (Bld) [#/Vol] 0 10*3/uL Normal 0-5 [facility] Comment on above: Performed By: #### L 100.0100, L500.4050 ####[facility] [address] [place], [address] Platelet mean volume (Bld) [Entitic vol] 10.3 fL Normal 6.2-12.0 [facility] Comment on above: Performed By: #### L 100.0100, L500.4050 ####[facility] [address] [place], [address] Platelets (Bld) [#/Vol] 376 10*3/uL Normal 150-450 [facility] Comment on above: Performed By: #### L 100.0100, L500.4050 ####[facility] [address] [place], [address] RBC (Bld) [#/Vol] 2.88 10*6/uL Low 4.2-5.4 [facility] Comment on above: Performed By: #### L 100.0100, L500.4050 ####[facility] [address] [place], [address] RDW SD 49.9 fl High 35.1-43.9 [facility] Comment on above: Performed By: #### L 100.0100, L500.4050 ####[facility] [address] [place], [address] WBC (Bld) [#/Vol] 5.9 10*3/uL Normal 4.4-11.0 [facility] Comment on above: Performed By: #### L 100.0100, L500.4050 ####[facility] [address] [place], [address] Carbon dioxide, total [Moles /volume] in Central venous bloodOrdered By: Canelo Myers on 05-04-2025 CO2 [Moles/Vol] 27.3 mmol/L 21.0-32.0 [facility] Chloride assayOrdered By: Henrry Myers on 05-04-2025 Chloride [Moles/Vol] 96 mmol/L Low 98-108 [facility] Comprehensive Metabolic Prof ilon 05-04-2025 Albumin [Mass/Vol] 3.4 g/dL Low 3.5-5.0 [facility] Comment on above: Performed By: #### L 100.0100, L500.4050 ####[facility] [address] [place], [address] Albumin/Globulin [Mass ratio] 1.1 {ratio} Normal 0.9-2.4 [facility] Comment on above: Performed By: #### L 100.0100, L500.4050 ####[facility] [address] [place], [address] ALK PHOS 441 U/L High 35-104 [facility] Comment on above: Performed By: #### L 100.0100, L500.4050 ####[facility] [address] [place], [address] ALT [Catalytic activity/Vol] 45 U/L High <=34 [facility] Comment on above: Performed By: #### L 100.0100, L500.4050 ####[facility] [address] [place], [address] AST [Catalytic activity/Vol] 51 U/L High <=31 [facility] Comment on above: Performed By: #### L 100.0100, L500.4050 ####[facility] [address] [place], [address] Bilirubin [Mass/Vol] 0.35 mg/dL Normal 0.00-1.30 [facility] Comment on above: Performed By: #### L 100.0100, L500.4050 ####[facility] [address] [place], [address] BUN/CRE 9.6 RATIO Low 10-20 [facility] Comment on above: Performed By: #### L 100.0100, L500.4050 ####[facility] [address] [place], [address] Calcium [Mass/Vol] 9.3 mg/dL Normal 7.6-11.0 [facility] Comment on above: Performed By: #### L 100.0100, L500.4050 ####[facility] [address] [place], [address] Chloride [Moles/Vol] 96 mmol/L Low 98-108 [facility] Comment on above: Performed By: #### L 100.0100, L500.4050 ####[facility] [address] [place], [address] CO2 [Moles/Vol] 27.3 mmol/L Normal 21.0-32.0 [facility] Comment on above: Performed By: #### L 100.0100, L500.4050 ####[facility] [address] [place], [address] Creatinine [Mass/Vol] 0.63 mg/dL Low 0.70-1.20 [facility] Comment on above: Performed By: #### L 100.0100, L500.4050 ####[facility] [address] [place], [address] ECRCL 94.30 ml/min Normal 50-250 [facility] Comment on above: Performed By: #### L 100.0100, L500.4050 ####[facility] [address] [place], [address] GAP 11 Normal 5-15 [facility] Comment on above: Performed By: #### L 100.0100, L500.4050 ####[facility] [address] [place], [address] GFR/1.73 sq M.predicted among non-blacks MDRD (S/P/Bld) [Vol rate/Area] 109 mL/min/{1.73_m2} Normal >60 [facility] Comment on above: Result Comment: mL/m in/1.73m2 CKD-EPI Creatinine Equation (2020) Performed By: #### L 100.0100, L500.4050 ####[facility] [address] [place], [address] Globulin (S) [Mass/Vol] 2.9 g/dL Normal 2.2-4.2 [facility] Comment on above: Performed By: #### L 100.0100, L500.4050 ####[facility] [address] [place], [address] Glucose [Mass/Vol] 171 mg/dL High 70-99 [facility] Comment on above: Performed By: #### L 100.0100, L500.4050 ####[facility] [address] [place], [address] Potassium [Moles/Vol] 4.7 mmol/L Normal 3.3-5.1 [facility] Comment on above: Performed By: #### L 100.0100, L500.4050 ####[facility] [address] [place], [address] Sodium [Moles/Vol] 134 mmol/L Normal 133-145 [facility] Comment on above: Performed By: #### L 100.0100, L500.4050 ####[facility] [address] [place], [address] T PROT 6.3 g/dL Normal 5.9-8.4 [facility] Comment on above: Performed By: #### L 100.0100, L500.4050 ####[facility] [address] [place], [address] Urea nitrogen [Mass/Vol] 6 mg/dL Normal 4-19 [facility] Comment on above: Performed By: #### L 100.0100, L500.4050 ####[facility] [address] [place], [address] Eosinophil percentageOrdered By: Canelo Myers on 05-04-2025 Eosinophils/100 WBC (Bld) 2.7 % 0-5 [facility] Erythrocyte distribution wid th ratioOrdered By: Canelo Myers on 05-04-2025 Erythrocyte distribution width (RBC) [Ratio] 12.8 % 11.6-14.6 [facility] Erythrocyte distribution wid th standard deviationOrdered By: Canelo Myers on 05-04-2025 Erythrocyte distribution width (RBC) [Ratio] 49.9 fl High 35.1-43.9 [facility] Glomerular filtration rate ( GFR) estimation/1.73 sq m using serum, plasma, or whole bOrdered By: Canelo Myers on 05-04-2025 GFR/1.73 sq M.predicted among non-blacks MDRD (S/P/Bld) [Vol rate/Area] 109 mL/min/{1.73_m2} >60 [facility] Comment on above: mL/min/1.73m2 CKD-EP I Creatinine Equation (2020) Hematocrit Auto (Bld) [Volum e fraction]Ordered By: Canelo Myers on 05-04-2025 Hematocrit (Bld) [Volume fraction] 30.6 % Low 37-47 [facility] Hemoglobin measurementOrdere d By: Canelo Myers on 05-04-2025 Hemoglobin (Bld) [Mass/Vol] 10.3 g/dL Low 12.0-15.0 [facility] Immature granulocytes/100 WB C Auto (Bld)Ordered By: Canelo Myers on 05-04-2025 Immature granulocytes/100 WBC (Bld) 0.300 % 0.0-0.9 [facility] Comment on above: IG% - Immature Granu locytes (promyelocytes, myelocytes and metamyelocytes) > 1% indicates that a LEFT SHIFT is Present. Laboratory - Chemistry and C hemistry - challengeOrdered By: Canelo Myers on 05-04-2025 AST [Catalytic activity/Vol] 51 U/L High <32 [facility] MCV (mean corpuscular volume ) determinationOrdered By: Canelo Myers on 05-04-2025 MCV (RBC) [Entitic vol] 106.3 fL High 81-99 [facility] Mean corpuscular hemoglobin (MCH) determinationOrdered By: Canelo Myers on 05-04-2025 MCH (RBC) [Entitic mass] 35.8 pg High 27.0-32.0 [facility] Mean corpuscular hemoglobin concentration (MCHC) determinationOrdered By: Canelo Myers on 05-04-2025 MCHC (RBC) [Mass/Vol] 33.7 g/dL 32-36 [facility] Mean platelet volume determi nationOrdered By: Canelo Myers on 05-04-2025 Platelet mean volume (Bld) [Entitic vol] 10.3 fL 6.2-12.0 [facility] Monocyte percentageOrdered B y: Canelo Myers on 05-04-2025 Monocytes/100 WBC (Bld) 15.4 % High 0-10 [facility] Neutrophil percentageOrdered By: Canelo Myers on 06-06-2025 Neutrophils/100 WBC (Bld) 58.1 % 47-70 [facility] Nucleated red blood cell per centageOrdered By: Canelo Myers on 05-04-2025 Nucleated RBC/100 WBC (Bld) [Ratio] 0 % 0-5 [facility] Platelet countOrdered By: Henrry Myers on 05-04-2025 Platelets (Bld) [#/Vol] 376 10*3/uL 150-450 [facility] Potassium measurement (mass/ volume)Ordered By: Canelo Myers on 05-04-2025 Potassium (Unsp spec) [Mass/Vol] 4.7 mmol/L 3.3-5.1 [facility] RBC Auto (Bld) [#/Vol]Ordere d By: Canelo Myers on 05-04-2025 RBC (Bld) [#/Vol] 2.88 10*6/uL Low 4.2-5.4 [facility] Serum creatinine measurement (mass/volume)Ordered By: Canelo Myers on 05-04-2025 Creatinine [Mass/Vol] 0.63 mg/dL Low 0.70-1.20 [facility] Serum globulin measurementOr dered By: Canelo Myers on 05-04-2025 Globulin (S) [Mass/Vol] 2.9 g/dL 2.2-4.2 [facility] Serum glucose measurement (m ass/volume)Ordered By: Canelo Myers on 05-04-2025 Glucose [Mass/Vol] 171 mg/dL High 70-99 [facility] Serum or plasma alanine wilkerson otransferase (ALT) measurementOrdered By: Canelo Myers on 05-04-2025 ALT [Catalytic activity/Vol] 45 U/L High <35 [facility] Serum or plasma albumin alphonso urement (mass/volume)Ordered By: Canelo Myers on 05-04-2025 Albumin [Mass/Vol] 3.4 g/dL Low 3.5-5.0 [facility] Serum or plasma albumin/glob ulin mass ratioOrdered By: Canelo Myers on 05-04-2025 Albumin/Globulin [Mass ratio] 1.1 {ratio} 0.9-2.4 [facility] Serum or plasma alkaline trinity sphatase measurementOrdered By: Canelo Myers on 05-04-2025 ALP [Catalytic activity/Vol] 441 U/L High 35-104 [facility] Serum or plasma calcium alphonso urement (mass/volume)Ordered By: Canelo Myers on 05-04-2025 Calcium [Mass/Vol] 9.3 mg/dL 7.6-11.0 [facility] Serum or plasma urea nitroge n measurement (mass/volume)Ordered By: Canelo Myers on 05-04-2025 Urea nitrogen [Mass/Vol] 6 mg/dL 4-19 [facility] Sodium levelOrdered By: Ganesh Myers on 05-04-2025 Sodium [Moles/Vol] 134 mmol/L 133-145 [facility] Total proteinOrdered By: Guido Myers on 05-04-2025 Protein [Mass/Vol] 6.3 g/dL 5.9-8.4 [facility] White blood cell (WBC) count Ordered By: Canelo Myers on 05-04-2025 WBC (Bld) [#/Vol] 5.9 10*3/uL 4.4-11.0 [facility] Bedside Glucoseon 05-03-2025 FINGERSTICK GLU 230 mg/dL High 74-106 [facility] Comment on above: Result Comment: CHAUNCEY GEMENT OF PATIENT CARE PER NURSING PROTOCOL Performed By: #### L 501.080 ####[facility] [address] [place], [address] FINGERSTICK GLU 237 mg/dL High 74-106 [facility] Comment on above: Result Comment: CHAUNCEY GEMENT OF PATIENT CARE PER NURSING PROTOCOL Performed By: #### L 501.080 ####[facility] [address] [place], [address] FINGERSTICK GLU 220 mg/dL High -106 [facility] Comment on above: Result Comment: CHAUNCEY GEMENT OF PATIENT CARE PER NURSING PROTOCOL Performed By: #### L 501.080 ####[facility] [address] [place], [address] CBC W/Diff, Automatedon 06-0 5-2024 Absolute Lymph 1.14 X10 3/uL Normal 0.83-4.51 [facility] Comment on above: Performed By: #### L 100.0100, L500.4050 ####[facility] [address] [place], [address] Absolute Neut 3.5 X10 3/uL Normal 2.0-7.7 [facility] Comment on above: Performed By: #### L 100.0100, L500.4050 ####[facility] [address] [place], [address] Basophils/100 WBC (Bld) 0.7 % Normal 0-1 [facility] Comment on above: Performed By: #### L 100.0100, L500.4050 ####[facility] [address] [place], [address] Eosinophils/100 WBC (Bld) 3.1 % Normal 0-5 [facility] Comment on above: Performed By: #### L 100.0100, L500.4050 ####[facility] [address] [place], [address] Erythrocyte distribution width (RBC) [Ratio] 12.5 % Normal 11.6-14.6 [facility] Comment on above: Performed By: #### L 100.0100, L500.4050 ####[facility] [address] [place], [address] Hematocrit (Bld) [Volume fraction] 31.0 % Low 37-47 [facility] Comment on above: Performed By: #### L 100.0100, L500.4050 ####[facility] [address] [place], [address] Hemoglobin (Bld) [Mass/Vol] 10.4 g/dL Low 12.0-15.0 [facility] Comment on above: Performed By: #### L 100.0100, L500.4050 ####[facility] [address] [place], [address] IG% 0.300 Normal 0.0-0.9 [facility] Comment on above: Result Comment: IG% - Immature Granulocytes (promyelocytes, myelocytes andmetamyelocytes) > 1% indicates that a LEFT SHIFT is Present. Performed By: #### L 100.0100, L500.4050 ####[facility] [address] [place], [address] Lymphocytes/100 WBC (Bld) 19.7 % Normal 19-41 [facility] Comment on above: Performed By: #### L 100.0100, L500.4050 ####[facility] [address] [place], [address] MCH (RBC) [Entitic mass] 35.6 pg High 27.0-32.0 [facility] Comment on above: Performed By: #### L 100.0100, L500.4050 ####[facility] [address] [place], [address] MCHC (RBC) [Mass/Vol] 33.5 g/dL Normal 32-36 [facility] Comment on above: Performed By: #### L 100.0100, L500.4050 ####[facility] [address] [place], [address] MCV (RBC) [Entitic vol] 106.2 fL High 81-99 [facility] Comment on above: Performed By: #### L 100.0100, L500.4050 ####[facility] [address] [place], [address] Monocytes/100 WBC (Bld) 15.1 % High 0-10 [facility] Comment on above: Performed By: #### L 100.0100, L500.4050 ####[facility] [address] [place], [address] Neutrophils/100 WBC (Bld) 61.1 % Normal 47-70 [facility] Comment on above: Performed By: #### L 100.0100, L500.4050 ####[facility] [address] [place], [address] Nucleated RBC (Bld) [#/Vol] 0 10*3/uL Normal 0-5 [facility] Comment on above: Performed By: #### L 100.0100, L500.4050 ####[facility] [address] [place], [address] Platelet mean volume (Bld) [Entitic vol] 10.2 fL Normal 6.2-12.0 [facility] Comment on above: Performed By: #### L 100.0100, L500.4050 ####[facility] [address] [place], [address] Platelets (Bld) [#/Vol] 297 10*3/uL Normal 150-450 [facility] Comment on above: Performed By: #### L 100.0100, L500.4050 ####[facility] [address] [place], [address] RBC (Bld) [#/Vol] 2.92 10*6/uL Low 4.2-5.4 [facility] Comment on above: Performed By: #### L 100.0100, L500.4050 ####[facility] [address] [place], [address] RDW SD 49.1 fl High 35.1-43.9 [facility] Comment on above: Performed By: #### L 100.0100, L500.4050 ####[facility] [address] [place], [address] WBC (Bld) [#/Vol] 5.8 10*3/uL Normal 4.4-11.0 [facility] Comment on above: Performed By: #### L 100.0100, L500.4050 ####[facility] [address] [place], [address] Comprehensive Metabolic Prof tnon 05-03-2025 Albumin [Mass/Vol] 3.1 g/dL Low 3.5-5.0 [facility] Comment on above: Performed By: #### L 100.0100, L500.4050 ####[facility] [address] [place], [address] Albumin/Globulin [Mass ratio] 1.1 {ratio} Normal 0.9-2.4 [facility] Comment on above: Performed By: #### L 100.0100, L500.4050 ####[facility] [address] [place], [address] ALK PHOS 311 U/L High 35-104 [facility] Comment on above: Performed By: #### L 100.0100, L500.4050 ####[facility] [address] [place], [address] ALT [Catalytic activity/Vol] 38 U/L High <=34 [facility] Comment on above: Performed By: #### L 100.0100, L500.4050 ####[facility] [address] [place], [address] AST [Catalytic activity/Vol] 48 U/L High <=31 [facility] Comment on above: Performed By: #### L 100.0100, L500.4050 ####[facility] [address] [place], [address] Bilirubin [Mass/Vol] 0.32 mg/dL Normal 0.00-1.30 [facility] Comment on above: Performed By: #### L 100.0100, L500.4050 ####[facility] [address] [place], [address] BUN/CRE 12.9 RATIO Normal 10-20 [facility] Comment on above: Performed By: #### L 100.0100, L500.4050 ####[facility] [address] [place], [address] Calcium [Mass/Vol] 8.5 mg/dL Normal 7.6-11.0 [facility] Comment on above: Performed By: #### L 100.0100, L500.4050 ####[facility] [address] [place], [address] Chloride [Moles/Vol] 97 mmol/L Low 98-108 [facility] Comment on above: Performed By: #### L 100.0100, L500.4050 ####[facility] [address] [place], [address] CO2 [Moles/Vol] 28.2 mmol/L Normal 21.0-32.0 [facility] Comment on above: Performed By: #### L 100.0100, L500.4050 ####[facility] [address] [place], [address] Creatinine [Mass/Vol] 0.58 mg/dL Low 0.70-1.20 [facility] Comment on above: Performed By: #### L 100.0100, L500.4050 ####[facility] [address] [place], [address] ECRCL 102.43 ml/min Normal 50-250 [facility] Comment on above: Performed By: #### L 100.0100, L500.4050 ####[facility] [address] [place], [address] GAP 9 Normal 5-15 [facility] Comment on above: Performed By: #### L 100.0100, L500.4050 ####[facility] [address] [place], [address] GFR/1.73 sq M.predicted among non-blacks MDRD (S/P/Bld) [Vol rate/Area] 112 mL/min/{1.73_m2} Normal >60 [facility] Comment on above: Result Comment: mL/m in/1.73m2 CKD-EPI Creatinine Equation (2020) Performed By: #### L 100.0100, L500.4050 ####[facility] [address] [place], [address] Globulin (S) [Mass/Vol] 2.8 g/dL Normal 2.2-4.2 [facility] Comment on above: Performed By: #### L 100.0100, L500.4050 ####[facility] [address] [place], [address] Glucose [Mass/Vol] 227 mg/dL High 70-99 [facility] Comment on above: Performed By: #### L 100.0100, L500.4050 ####[facility] [address] [place], [address] Potassium [Moles/Vol] 4.8 mmol/L Normal 3.3-5.1 [facility] Comment on above: Performed By: #### L 100.0100, L500.4050 ####[facility] [address] [place], [address] Sodium [Moles/Vol] 135 mmol/L Normal 133-145 [facility] Comment on above: Performed By: #### L 100.0100, L500.4050 ####[facility] [address] [place], [address] T PROT 5.9 g/dL Normal 5.9-8.4 [facility] Comment on above: Performed By: #### L 100.0100, L500.4050 ####[facility] [address] [place], [address] Urea nitrogen [Mass/Vol] 7 mg/dL Normal 4-19 [facility] Comment on above: Performed By: #### L 100.0100, L500.4050 ####[facility] [address] [place], [address] Bedside Glucoseon 05-02-2025 FINGERSTICK GLU 288 mg/dL High 74-106 [facility] Comment on above: Result Comment: CHAUNCEY GEMENT OF PATIENT CARE PER NURSING PROTOCOL Performed By: #### L 501.080 ####[facility] [address] [place], [address] FINGERSTICK GLU 198 mg/dL High 74-106 [facility] Comment on above: Result Comment: CHAUNCEY GEMENT OF PATIENT CARE PER NURSING PROTOCOL Performed By: #### L 501.080 ####[facility] [address] [place], [address] FINGERSTICK GLU 196 mg/dL High 74-106 [facility] Comment on above: Result Comment: CHAUNCEY GEMENT OF PATIENT CARE PER NURSING PROTOCOL Performed By: #### L 501.080 ####[facility] [address] [place], [address] CBC W/Diff, Automatedon 06-0 Absolute Lymph 1.17 X10 3/uL Normal 0.83-4.51 [facility] Comment on above: Performed By: #### L 501.5200, L500.4050, L100.0100, L501.2300 ####[facility] [address] [place], [address] Absolute Neut 3.0 X10 3/uL Normal 2.0-7.7 [facility] Comment on above: Performed By: #### L 501.5200, L500.4050, L100.0100, L501.2300 ####[facility] [address] [place], [address] Basophils/100 WBC (Bld) 0.6 % Normal 0-1 [facility] Comment on above: Performed By: #### L 501.5200, L500.4050, L100.0100, L501.2300 ####[facility] [address] [place], [address] Eosinophils/100 WBC (Bld) 3.3 % Normal 0-5 [facility] Comment on above: Performed By: #### L 501.5200, L500.4050, L100.0100, L501.2300 ####[facility] [address] [place], [address] Erythrocyte distribution width (RBC) [Ratio] 12.5 % Normal 11.6-14.6 [facility] Comment on above: Performed By: #### L 501.5200, L500.4050, L100.0100, L501.2300 ####[facility] [address] [place], [address] Hematocrit (Bld) [Volume fraction] 30.1 % Low 37-47 [facility] Comment on above: Performed By: #### L 501.5200, L500.4050, L100.0100, L501.2300 ####[facility] [address] [place], [address] Hemoglobin (Bld) [Mass/Vol] 10.4 g/dL Low 12.0-15.0 [facility] Comment on above: Performed By: #### L 501.5200, L500.4050, L100.0100, L501.2300 ####[facility] [address] [place], [address] IG% 0.600 Normal 0.0-0.9 [facility] Comment on above: Result Comment: IG% - Immature Granulocytes (promyelocytes, myelocytes andmetamyelocytes) > 1% indicates that a LEFT SHIFT is Present. Performed By: #### L 501.5200, L500.4050, L100.0100, L501.2300 ####[facility] [address] [place], [address] Lymphocytes/100 WBC (Bld) 22.5 % Normal 19-41 [facility] Comment on above: Performed By: #### L 501.5200, L500.4050, L100.0100, L501.2300 ####[facility] [address] [place], [address] MCH (RBC) [Entitic mass] 36.9 pg High 27.0-32.0 [facility] Comment on above: Performed By: #### L 501.5200, L500.4050, L100.0100, L501.2300 ####[facility] [address] [place], [address] MCHC (RBC) [Mass/Vol] 34.6 g/dL Normal 32-36 [facility] Comment on above: Performed By: #### L 501.5200, L500.4050, L100.0100, L501.2300 ####[facility] [address] [place], [address] MCV (RBC) [Entitic vol] 106.7 fL High 81-99 [facility] Comment on above: Performed By: #### L 501.5200, L500.4050, L100.0100, L501.2300 ####[facility] [address] [place], [address] Monocytes/100 WBC (Bld) 15.8 % High 0-10 [facility] Comment on above: Performed By: #### L 501.5200, L500.4050, L100.0100, L501.2300 ####[facility] [address] [place], [address] Neutrophils/100 WBC (Bld) 57.2 % Normal 47-70 [facility] Comment on above: Performed By: #### L 501.5200, L500.4050, L100.0100, L501.2300 ####[facility] [address] [place], [address] Nucleated RBC (Bld) [#/Vol] 0 10*3/uL Normal 0-5 [facility] Comment on above: Performed By: #### L 501.5200, L500.4050, L100.0100, L501.2300 ####[facility] [address] [place], [address] Platelet mean volume (Bld) [Entitic vol] 10.3 fL Normal 6.2-12.0 [facility] Comment on above: Performed By: #### L 501.5200, L500.4050, L100.0100, L501.2300 ####[facility] [address] [place], [address] Platelets (Bld) [#/Vol] 247 10*3/uL Normal 150-450 [facility] Comment on above: Performed By: #### L 501.5200, L500.4050, L100.0100, L501.2300 ####[facility] [address] [place], [address] RBC (Bld) [#/Vol] 2.82 10*6/uL Low 4.2-5.4 [facility] Comment on above: Performed By: #### L 501.5200, L500.4050, L100.0100, L501.2300 ####[facility] [address] [place], [address] RDW SD 49.4 fl High 35.1-43.9 [facility] Comment on above: Performed By: #### L 501.5200, L500.4050, L100.0100, L501.2300 ####[facility] [address] [place], [address] WBC (Bld) [#/Vol] 5.2 10*3/uL Normal 4.4-11.0 [facility] Comment on above: Performed By: #### L 501.5200, L500.4050, L100.0100, L501.2300 ####[facility] [address] [place], [address] Comprehensive Metabolic Prof tnon 05-02-2025 Albumin [Mass/Vol] 3.1 g/dL Low 3.5-5.0 [facility] Comment on above: Performed By: #### L 501.5200, L500.4050, L100.0100, L501.2300 ####[facility] [address] [place], [address] Albumin/Globulin [Mass ratio] 1.2 {ratio} Normal 0.9-2.4 [facility] Comment on above: Performed By: #### L 501.5200, L500.4050, L100.0100, L501.2300 ####[facility] [address] [place], [address] ALK PHOS 230 U/L High 35-104 [facility] Comment on above: Performed By: #### L 501.5200, L500.4050, L100.0100, L501.2300 ####[facility] [address] [place], [address] ALT [Catalytic activity/Vol] 33 U/L Normal <=34 [facility] Comment on above: Performed By: #### L 501.5200, L500.4050, L100.0100, L501.2300 ####[facility] [address] [place], [address] AST [Catalytic activity/Vol] 40 U/L High <=31 [facility] Comment on above: Performed By: #### L 501.5200, L500.4050, L100.0100, L501.2300 ####[facility] [address] [place], [address] Bilirubin [Mass/Vol] 0.49 mg/dL Normal 0.00-1.30 [facility] Comment on above: Performed By: #### L 501.5200, L500.4050, L100.0100, L501.2300 ####[facility] [address] [place], [address] BUN/CRE 13.6 RATIO Normal 10-20 [facility] Comment on above: Performed By: #### L 501.5200, L500.4050, L100.0100, L501.2300 ####[facility] [address] [place], [address] Calcium [Mass/Vol] 8.7 mg/dL Normal 7.6-11.0 [facility] Comment on above: Performed By: #### L 501.5200, L500.4050, L100.0100, L501.2300 ####[facility] [address] [place], [address] Chloride [Moles/Vol] 95 mmol/L Low 98-108 [facility] Comment on above: Performed By: #### L 501.5200, L500.4050, L100.0100, L501.2300 ####[facility] [address] [place], [address] CO2 [Moles/Vol] 28.5 mmol/L Normal 21.0-32.0 [facility] Comment on above: Performed By: #### L 501.5200, L500.4050, L100.0100, L501.2300 ####[facility] [address] [place], [address] Creatinine [Mass/Vol] 0.52 mg/dL Low 0.70-1.20 [facility] Comment on above: Performed By: #### L 501.5200, L500.4050, L100.0100, L501.2300 ####[facility] [address] [place], [address] ECRCL 114.25 ml/min Normal 50-250 [facility] Comment on above: Performed By: #### L 501.5200, L500.4050, L100.0100, L501.2300 ####[facility] [address] [place], [address] GAP 11 Normal 5-15 [facility] Comment on above: Performed By: #### L 501.5200, L500.4050, L100.0100, L501.2300 ####[facility] [address] [place], [address] GFR/1.73 sq M.predicted among non-blacks MDRD (S/P/Bld) [Vol rate/Area] 115 mL/min/{1.73_m2} Normal >60 [facility] Comment on above: Result Comment: mL/m in/1.73m2 CKD-EPI Creatinine Equation (2020) Performed By: #### L 501.5200, L500.4050, L100.0100, L501.2300 ####[facility] [address] [place], [address] Globulin (S) [Mass/Vol] 2.7 g/dL Normal 2.2-4.2 [facility] Comment on above: Performed By: #### L 501.5200, L500.4050, L100.0100, L501.2300 ####[facility] [address] [place], [address] Glucose [Mass/Vol] 197 mg/dL High 70-99 [facility] Comment on above: Performed By: #### L 501.5200, L500.4050, L100.0100, L501.2300 ####[facility] [address] [place], [address] Potassium [Moles/Vol] 4.2 mmol/L Normal 3.3-5.1 [facility] Comment on above: Performed By: #### L 501.5200, L500.4050, L100.0100, L501.2300 ####[facility] [address] [place], [address] Sodium [Moles/Vol] 134 mmol/L Normal 133-145 [facility] Comment on above: Performed By: #### L 501.5200, L500.4050, L100.0100, L501.2300 ####[facility] [address] [place], [address] T PROT 5.8 g/dL Low 5.9-8.4 [facility] Comment on above: Performed By: #### L 501.5200, L500.4050, L100.0100, L501.2300 ####[facility] [address] [place], [address] Urea nitrogen [Mass/Vol] 7 mg/dL Normal 4-19 [facility] Comment on above: Performed By: #### L 501.5200, L500.4050, L100.0100, L501.2300 ####[facility] [address] [place], [address] Magnesiumon 05-02-2025 Magnesium [Mass/Vol] 1.2 mg/dL Low 1.5-2.2 [facility] Comment on above: Performed By: #### L 501.5200, L500.4050, L100.0100, L501.2300 ####[facility] [address] [place], [address] Magnesium measurement (mass/ volume)Ordered By: Canelo Myers on 05-02-2025 Magnesium (Unsp spec) [Mass/Vol] 1.2 mg/dL Low 1.5-2.2 [facility] Phosphoruson 05-02-2025 Phosphate [Mass/Vol] 5.0 mg/dL High 2.7-4.5 [facility] Comment on above: Performed By: #### L 501.5200, L500.4050, L100.0100, L501.2300 ####[facility] [address] [place], [address] Bedside Glucoseon 05-01-2025 FINGERSTICK GLU 234 mg/dL High 74-106 [facility] Comment on above: Result Comment: CHAUNCEY GEMENT OF PATIENT CARE PER NURSING PROTOCOL Performed By: #### L 501.080 ####[facility] [address] [place], [address] FINGERSTICK GLU 316 mg/dL High -106 [facility] Comment on above: Result Comment: CHAUNCEY GEMENT OF PATIENT CARE PER NURSING PROTOCOL Performed By: #### L 501.080 ####[facility] [address] [place], [address] FINGERSTICK GLU 168 mg/dL High 74-106 [facility] Comment on above: Result Comment: CHAUNCEY GEMENT OF PATIENT CARE PER NURSING PROTOCOL Performed By: #### L 501.080 ####[facility] [address] [place], [address] Bilirubin directOrdered By: Canelo Myers on 05-01-2025 Bilirubin.direct [Mass/Vol] 0.32 mg/dL High 0.00-0.30 [facility] Liver Profileon 05-01-2025 Albumin [Mass/Vol] 3.0 g/dL Low 3.5-5.0 [facility] Comment on above: Performed By: #### L 500.3400 ####[facility] [address] [place], [address] ALK PHOS 166 U/L High 35-104 [facility] Comment on above: Performed By: #### L 500.3400 ####[facility] [address] [place], [address] ALT [Catalytic activity/Vol] 39 U/L High <=34 [facility] Comment on above: Performed By: #### L 500.3400 ####[facility] [address] [place], [address] AST [Catalytic activity/Vol] 73 U/L High <=31 [facility] Comment on above: Performed By: #### L 500.3400 ####[facility] [address] [place], [address] Bilirubin [Mass/Vol] 0.59 mg/dL Normal 0.00-1.30 [facility] Comment on above: Performed By: #### L 500.3400 ####[facility] [address] [place], [address] Bilirubin.direct [Mass/Vol] 0.32 mg/dL High 0.00-0.30 [facility] Comment on above: Performed By: #### L 500.3400 ####[facility] [address] [place], [address] Globulin (S) [Mass/Vol] 2.7 g/dL Normal 2.2-4.2 [facility] Comment on above: Performed By: #### L 500.3400 ####[facility] [address] [place], [address] T PROT 5.7 g/dL Low 5.9-8.4 [facility] Comment on above: Performed By: #### L 500.3400 ####[facility] [address] [place], [address] Phosphoruson 05-01-2025 Phosphate [Mass/Vol] 5.1 mg/dL High 2.7-4.5 [facility] Comment on above: Performed By: #### L 501.2300 ####[facility] [address] [place], [address] Basic Metabolic Profile (BMP )on 04-30-2025 BUN/CRE UNABLE TO CALCULATE Low 10-20 [facility] Comment on above: Performed By: #### L 500.2500, L500.3400, L100.0100 ####[facility] [address] [place], [address] Calcium [Mass/Vol] 8.5 mg/dL Normal 7.6-11.0 [facility] Comment on above: Performed By: #### L 500.2500, L500.3400, L100.0100 ####[facility] [address] [place], [address] Chloride [Moles/Vol] 98 mmol/L Normal 98-108 [facility] Comment on above: Performed By: #### L 500.2500, L500.3400, L100.0100 ####[facility] [address] [place], [address] CO2 [Moles/Vol] 28.1 mmol/L Normal 21.0-32.0 [facility] Comment on above: Performed By: #### L 500.2500, L500.3400, L100.0100 ####[facility] [address] [place], [address] Creatinine [Mass/Vol] 0.41 mg/dL Low 0.70-1.20 [facility] Comment on above: Performed By: #### L 500.2500, L500.3400, L100.0100 ####[facility] [address] [place], [address] ECRCL 144.90 ml/min Normal 50-250 [facility] Comment on above: Performed By: #### L 500.2500, L500.3400, L100.0100 ####[facility] [address] [place], [address] GAP 13 Normal 5-15 [facility] Comment on above: Performed By: #### L 500.2500, L500.3400, L100.0100 ####[facility] [address] [place], [address] GFR/1.73 sq M.predicted among non-blacks MDRD (S/P/Bld) [Vol rate/Area] 121 mL/min/{1.73_m2} Normal >60 [facility] Comment on above: Result Comment: mL/m in/1.73m2 CKD-EPI Creatinine Equation (2020) Performed By: #### L 500.2500, L500.3400, L100.0100 ####[facility] [address] [place], [address] Glucose [Mass/Vol] 124 mg/dL High 70-99 [facility] Comment on above: Performed By: #### L 500.2500, L500.3400, L100.0100 ####[facility] [address] [place], [address] Potassium [Moles/Vol] 2.7 mmol/L Invalid Interpretation Code 3.3-5.1 [facility] Comment on above: Result Comment: Crit ical Result(s) Called at: by:??Results read back bysame. Performed By: #### L 500.2500, L500.3400, L100.0100 ####[facility] [address] [place], [address] Sodium [Moles/Vol] 139 mmol/L Normal 133-145 [facility] Comment on above: Performed By: #### L 500.2500, L500.3400, L100.0100 ####[facility] [address] [place], [address] Urea nitrogen [Mass/Vol] mg/dL Low 4-19 [facility] Comment on above: Performed By: #### L 500.2500, L500.3400, L100.0100 ####[facility] [address] [place], [address] Bedside Glucoseon --2024 FINGERSTICK GLU 147 mg/dL High 74-106 [facility] Comment on above: Result Comment: CHAUNCEY GEMENT OF PATIENT CARE PER NURSING PROTOCOL Performed By: #### L 501.080 ####[facility] [address] [place], [address] FINGERSTICK GLU 230 mg/dL High 74-106 [facility] Comment on above: Result Comment: CHAUNCEY GEMENT OF PATIENT CARE PER NURSING PROTOCOL Performed By: #### L 501.080 ####[facility] [address] [place], [address] FINGERSTICK GLU 149 mg/dL High 74-106 [facility] Comment on above: Result Comment: CHAUNCEY GEMENT OF PATIENT CARE PER NURSING PROTOCOL Performed By: #### L 501.080 ####[facility] [address] [place], [address] CBC W/Diff, Automatedon 06-0 Absolute Lymph 1.39 X10 3/uL Normal 0.83-4.51 [facility] Comment on above: Performed By: #### L 500.2500, L500.3400, L100.0100 ####[facility] [address] [place], [address] Absolute Neut 3.6 X10 3/uL Normal 2.0-7.7 [facility] Comment on above: Performed By: #### L 500.2500, L500.3400, L100.0100 ####[facility] [address] [place], [address] Basophils/100 WBC (Bld) 0.5 % Normal 0-1 [facility] Comment on above: Performed By: #### L 500.2500, L500.3400, L100.0100 ####[facility] [address] [place], [address] Eosinophils/100 WBC (Bld) 2.0 % Normal 0-5 [facility] Comment on above: Performed By: #### L 500.2500, L500.3400, L100.0100 ####[facility] [address] [place], [address] Erythrocyte distribution width (RBC) [Ratio] 12.6 % Normal 11.6-14.6 [facility] Comment on above: Performed By: #### L 500.2500, L500.3400, L100.0100 ####[facility] [address] [place], [address] Hematocrit (Bld) [Volume fraction] 29.7 % Low 37-47 [facility] Comment on above: Performed By: #### L 500.2500, L500.3400, L100.0100 ####[facility] [address] [place], [address] Hemoglobin (Bld) [Mass/Vol] 10.3 g/dL Low 12.0-15.0 [facility] Comment on above: Performed By: #### L 500.2500, L500.3400, L100.0100 ####[facility] [address] [place], [address] IG% 0.500 Normal 0.0-0.9 [facility] Comment on above: Result Comment: IG% - Immature Granulocytes (promyelocytes, myelocytes andmetamyelocytes) > 1% indicates that a LEFT SHIFT is Present. Performed By: #### L 500.2500, L500.3400, L100.0100 ####[facility] [address] [place], [address] Lymphocytes/100 WBC (Bld) 23.4 % Normal 19-41 [facility] Comment on above: Performed By: #### L 500.2500, L500.3400, L100.0100 ####[facility] [address] [place], [address] MCH (RBC) [Entitic mass] 36.7 pg High 27.0-32.0 [facility] Comment on above: Performed By: #### L 500.2500, L500.3400, L100.0100 ####[facility] [address] [place], [address] MCHC (RBC) [Mass/Vol] 34.7 g/dL Normal 32-36 [facility] Comment on above: Performed By: #### L 500.2500, L500.3400, L100.0100 ####[facility] [address] [place], [address] MCV (RBC) [Entitic vol] 105.7 fL High 81-99 [facility] Comment on above: Performed By: #### L 500.2500, L500.3400, L100.0100 ####[facility] [address] [place], [address] Monocytes/100 WBC (Bld) 13.8 % High 0-10 [facility] Comment on above: Performed By: #### L 500.2500, L500.3400, L100.0100 ####[facility] [address] [place], [address] Neutrophils/100 WBC (Bld) 59.8 % Normal 47-70 [facility] Comment on above: Performed By: #### L 500.2500, L500.3400, L100.0100 ####[facility] [address] [place], [address] Nucleated RBC (Bld) [#/Vol] 0 10*3/uL Normal 0-5 [facility] Comment on above: Performed By: #### L 500.2500, L500.3400, L100.0100 ####[facility] [address] [place], [address] Platelet mean volume (Bld) [Entitic vol] 10.4 fL Normal 6.2-12.0 [facility] Comment on above: Performed By: #### L 500.2500, L500.3400, L100.0100 ####[facility] [address] [place], [address] Platelets (Bld) [#/Vol] 145 10*3/uL Low 150-450 [facility] Comment on above: Performed By: #### L 500.2500, L500.3400, L100.0100 ####[facility] [address] [place], [address] RBC (Bld) [#/Vol] 2.81 10*6/uL Low 4.2-5.4 [facility] Comment on above: Performed By: #### L 500.2500, L500.3400, L100.0100 ####[facility] [address] [place], [address] RDW SD 49.7 fl High 35.1-43.9 [facility] Comment on above: Performed By: #### L 500.2500, L500.3400, L100.0100 ####[facility] [address] [place], [address] WBC (Bld) [#/Vol] 6.0 10*3/uL Normal 4.4-11.0 [facility] Comment on above: Performed By: #### L 500.2500, L500.3400, L100.0100 ####[facility] [address] [place], [place], [id number] Liver Profileon 04-30-2025 Albumin [Mass/Vol] 3.2 g/dL Low 3.5-5.0 [facility] Comment on above: Performed By: #### L 500.2500, L500.3400, L100.0100 ####[facility] [address] [place], [address] ALK PHOS 98 U/L Normal 35-104 [facility] Comment on above: Performed By: #### L 500.2500, L500.3400, L100.0100 ####[facility] [address] [place], [address] ALT [Catalytic activity/Vol] 32 U/L Normal <=34 [facility] Comment on above: Performed By: #### L 500.2500, L500.3400, L100.0100 ####[facility] [address] [place], [address] AST [Catalytic activity/Vol] 39 U/L High <=31 [facility] Comment on above: Performed By: #### L 500.2500, L500.3400, L100.0100 ####[facility] [address] [place], [address] Bilirubin [Mass/Vol] 0.67 mg/dL Normal 0.00-1.30 [facility] Comment on above: Performed By: #### L 500.2500, L500.3400, L100.0100 ####[facility] [address] [place], [address] Bilirubin.direct [Mass/Vol] 0.41 mg/dL High 0.00-0.30 [facility] Comment on above: Performed By: #### L 500.2500, L500.3400, L100.0100 ####[facility] [address] [place], [address] Globulin (S) [Mass/Vol] 2.6 g/dL Normal 2.2-4.2 [facility] Comment on above: Performed By: #### L 500.2500, L500.3400, L100.0100 ####[facility] [address] [place], [address] T PROT 5.9 g/dL Normal 5.9-8.4 [facility] Comment on above: Performed By: #### L 500.2500, L500.3400, L100.0100 ####[facility] [address] [place], [address] Magnesiumon 04-30-2025 Magnesium [Mass/Vol] 1.5 mg/dL Normal 1.5-2.2 [facility] Comment on above: Performed By: #### L 501.5200 ####[facility] [address] [place], [address] Basic Metabolic Profile (BMP )on 04-29-2025 BUN/CRE UNABLE TO CALCULATE Low 10-20 [facility] Comment on above: Performed By: #### L 500.2500, L500.3400, L501.5200, L100.0100 ####[facility] [address] [place], [address] Calcium [Mass/Vol] 8.2 mg/dL Normal 7.6-11.0 [facility] Comment on above: Performed By: #### L 500.2500, L500.3400, L501.5200, L100.0100 ####[facility] [address] [place], [address] Chloride [Moles/Vol] 103 mmol/L Normal 98-108 [facility] Comment on above: Performed By: #### L 500.2500, L500.3400, L501.5200, L100.0100 ####[facility] [address] [place], [address] CO2 [Moles/Vol] 26.0 mmol/L Normal 21.0-32.0 [facility] Comment on above: Performed By: #### L 500.2500, L500.3400, L501.5200, L100.0100 ####[facility] [address] [place], [address] Creatinine [Mass/Vol] 0.40 mg/dL Low 0.70-1.20 [facility] Comment on above: Performed By: #### L 500.2500, L500.3400, L501.5200, L100.0100 ####[facility] [address] [place], [address] ECRCL 148.53 ml/min Normal 50-250 [facility] Comment on above: Performed By: #### L 500.2500, L500.3400, L501.5200, L100.0100 ####[facility] [address] [place], [address] GAP 11 Normal 5-15 [facility] Comment on above: Performed By: #### L 500.2500, L500.3400, L501.5200, L100.0100 ####[facility] [address] [place], [address] GFR/1.73 sq M.predicted among non-blacks MDRD (S/P/Bld) [Vol rate/Area] 122 mL/min/{1.73_m2} Normal >60 [facility] Comment on above: Result Comment: mL/m in/1.73m2 CKD-EPI Creatinine Equation (2020) Performed By: #### L 500.2500, L500.3400, L501.5200, L100.0100 ####[facility] [address] [place], [address] Glucose [Mass/Vol] 126 mg/dL High 70-99 [facility] Comment on above: Performed By: #### L 500.2500, L500.3400, L501.5200, L100.0100 ####[facility] [address] [place], [address] Potassium [Moles/Vol] 2.8 mmol/L Low 3.3-5.1 [facility] Comment on above: Performed By: #### L 500.2500, L500.3400, L501.5200, L100.0100 ####[facility] [address] [place], [address] Sodium [Moles/Vol] 140 mmol/L Normal 133-145 [facility] Comment on above: Performed By: #### L 500.2500, L500.3400, L501.5200, L100.0100 ####[facility] [address] [place], [address] Urea nitrogen [Mass/Vol] mg/dL Low 4-19 [facility] Comment on above: Performed By: #### L 500.2500, L500.3400, L501.5200, L100.0100 ####[facility] [address] [place], [address] Bedside Glucoseon 04-29-2025 FINGERSTICK GLU 187 mg/dL High 74-106 [facility] Comment on above: Result Comment: CHAUNCEY GEMENT OF PATIENT CARE PER NURSING PROTOCOL Performed By: #### L 501.080 ####[facility] [address] [place], [address] FINGERSTICK GLU 121 mg/dL High 74-106 [facility] Comment on above: Result Comment: CHAUNCEY GEMENT OF PATIENT CARE PER NURSING PROTOCOL Performed By: #### L 501.080 ####[facility] [address] [place], [address] FINGERSTICK GLU 218 mg/dL High 74-106 [facility] Comment on above: Result Comment: CHAUNCEY GEMENT OF PATIENT CARE PER NURSING PROTOCOL Performed By: #### L 501.080 ####[facility] [address] [place], [address] FINGERSTICK GLU 132 mg/dL High 74-106 [facility] Comment on above: Result Comment: CHAUNCEY GEMENT OF PATIENT CARE PER NURSING PROTOCOL Performed By: #### L 501.080 ####[facility] [address] [place], [address] CBC W/Diff, Automatedon 06-0 -2024 Absolute Lymph 1.02 X10 3/uL Normal 0.83-4.51 [facility] Comment on above: Performed By: #### L 500.2500, L500.3400, L501.5200, L100.0100 ####[facility] [address] [place], [address] Absolute Neut 5.3 X10 3/uL Normal 2.0-7.7 [facility] Comment on above: Performed By: #### L 500.2500, L500.3400, L501.5200, L100.0100 ####[facility] [address] [place], [address] Basophils/100 WBC (Bld) 0.4 % Normal 0-1 [facility] Comment on above: Performed By: #### L 500.2500, L500.3400, L501.5200, L100.0100 ####[facility] [address] [place], [address] Eosinophils/100 WBC (Bld) 1.1 % Normal 0-5 [facility] Comment on above: Performed By: #### L 500.2500, L500.3400, L501.5200, L100.0100 ####[facility] [address] [place], [address] Erythrocyte distribution width (RBC) [Ratio] 12.2 % Normal 11.6-14.6 [facility] Comment on above: Performed By: #### L 500.2500, L500.3400, L501.5200, L100.0100 ####[facility] [address] [place], [address] Hematocrit (Bld) [Volume fraction] 28.7 % Low 37-47 [facility] Comment on above: Performed By: #### L 500.2500, L500.3400, L501.5200, L100.0100 ####[facility] [address] [place], [address] Hemoglobin (Bld) [Mass/Vol] 9.9 g/dL Low 12.0-15.0 [facility] Comment on above: Performed By: #### L 500.2500, L500.3400, L501.5200, L100.0100 ####[facility] [address] [place], [address] IG% 0.600 Normal 0.0-0.9 [facility] Comment on above: Result Comment: IG% - Immature Granulocytes (promyelocytes, myelocytes andmetamyelocytes) > 1% indicates that a LEFT SHIFT is Present. Performed By: #### L 500.2500, L500.3400, L501.5200, L100.0100 ####[facility] [address] [place], [address] Lymphocytes/100 WBC (Bld) 14.1 % Low 19-41 [facility] Comment on above: Performed By: #### L 500.2500, L500.3400, L501.5200, L100.0100 ####[facility] [address] [place], [address] MCH (RBC) [Entitic mass] 36.5 pg High 27.0-32.0 [facility] Comment on above: Performed By: #### L 500.2500, L500.3400, L501.5200, L100.0100 ####[facility] [address] [place], [address] MCHC (RBC) [Mass/Vol] 34.5 g/dL Normal 32-36 [facility] Comment on above: Performed By: #### L 500.2500, L500.3400, L501.5200, L100.0100 ####[facility] [address] [place], [address] MCV (RBC) [Entitic vol] 105.9 fL High 81-99 [facility] Comment on above: Performed By: #### L 500.2500, L500.3400, L501.5200, L100.0100 ####[facility] [address] [place], [address] Monocytes/100 WBC (Bld) 10.9 % High 0-10 [facility] Comment on above: Performed By: #### L 500.2500, L500.3400, L501.5200, L100.0100 ####[facility] [address] [place], [address] Neutrophils/100 WBC (Bld) 72.9 % High 47-70 [facility] Comment on above: Performed By: #### L 500.2500, L500.3400, L501.5200, L100.0100 ####[facility] [address] [place], [address] Nucleated RBC (Bld) [#/Vol] 0 10*3/uL Normal 0-5 [facility] Comment on above: Performed By: #### L 500.2500, L500.3400, L501.5200, L100.0100 ####[facility] [address] [place], [address] Platelet mean volume (Bld) [Entitic vol] 10.5 fL Normal 6.2-12.0 [facility] Comment on above: Performed By: #### L 500.2500, L500.3400, L501.5200, L100.0100 ####[facility] [address] [place], [address] Platelets (Bld) [#/Vol] 110 10*3/uL Low 150-450 [facility] Comment on above: Performed By: #### L 500.2500, L500.3400, L501.5200, L100.0100 ####[facility] [address] [place], [address] RBC (Bld) [#/Vol] 2.71 10*6/uL Low 4.2-5.4 [facility] Comment on above: Performed By: #### L 500.2500, L500.3400, L501.5200, L100.0100 ####[facility] [address] [place], [address] RDW SD 47.6 fl High 35.1-43.9 [facility] Comment on above: Performed By: #### L 500.2500, L500.3400, L501.5200, L100.0100 ####[facility] [address] [place], [address] WBC (Bld) [#/Vol] 7.2 10*3/uL Normal 4.4-11.0 [facility] Comment on above: Performed By: #### L 500.2500, L500.3400, L501.5200, L100.0100 ####[facility] [address] [place], [address] Liver Profileon 04-29-2025 Albumin [Mass/Vol] 3.2 g/dL Low 3.5-5.0 [facility] Comment on above: Performed By: #### L 500.2500, L500.3400, L501.5200, L100.0100 ####[facility] [address] [place], [address] ALK PHOS 108 U/L High 35-104 [facility] Comment on above: Performed By: #### L 500.2500, L500.3400, L501.5200, L100.0100 ####[facility] [address] [place], [address] ALT [Catalytic activity/Vol] 37 U/L High <=34 [facility] Comment on above: Performed By: #### L 500.2500, L500.3400, L501.5200, L100.0100 ####[facility] [address] [place], [address] AST [Catalytic activity/Vol] 56 U/L High <=31 [facility] Comment on above: Performed By: #### L 500.2500, L500.3400, L501.5200, L100.0100 ####[facility] [address] [place], [address] Bilirubin [Mass/Vol] 0.71 mg/dL Normal 0.00-1.30 [facility] Comment on above: Performed By: #### L 500.2500, L500.3400, L501.5200, L100.0100 ####[facility] [address] [place], [address] Bilirubin.direct [Mass/Vol] 0.43 mg/dL High 0.00-0.30 [facility] Comment on above: Performed By: #### L 500.2500, L500.3400, L501.5200, L100.0100 ####[facility] [address] [place], [address] Globulin (S) [Mass/Vol] 2.4 g/dL Normal 2.2-4.2 [facility] Comment on above: Performed By: #### L 500.2500, L500.3400, L501.5200, L100.0100 ####[facility] [address] [place], [address] T PROT 5.6 g/dL Low 5.9-8.4 [facility] Comment on above: Performed By: #### L 500.2500, L500.3400, L501.5200, L100.0100 ####[facility] [address] [place], [address] Magnesiumon 04-29-2025 Magnesium [Mass/Vol] 1.5 mg/dL Normal 1.5-2.2 [facility] Comment on above: Performed By: #### L 500.2500, L500.3400, L501.5200, L100.0100 ####[facility] [address] [place], [address] Phosphoruson 04-29-2025 Phosphate [Mass/Vol] 2.0 mg/dL Low 2.7-4.5 [facility] Comment on above: Performed By: #### L 501.2300 ####[facility] [address] [place], [address] Basic Metabolic Profile (BMP )on 04-28-2025 BUN/CRE 6.9 RATIO Low 10-20 [facility] Comment on above: Performed By: #### L 500.2500, L500.3400, L501.5200, L501.2450 ####[facility] [address] [place], [address] Calcium [Mass/Vol] 8.3 mg/dL Normal 7.6-11.0 [facility] Comment on above: Performed By: #### L 500.2500, L500.3400, L501.5200, L501.2450 ####[facility] [address] [place], [address] Chloride [Moles/Vol] 100 mmol/L Normal 98-108 [facility] Comment on above: Performed By: #### L 500.2500, L500.3400, L501.5200, L501.2450 ####[facility] [address] [place], [address] CO2 [Moles/Vol] 24.9 mmol/L Normal 21.0-32.0 [facility] Comment on above: Performed By: #### L 500.2500, L500.3400, L501.5200, L501.2450 ####[facility] [address] [place], [address] Creatinine [Mass/Vol] 0.50 mg/dL Low 0.70-1.20 [facility] Comment on above: Performed By: #### L 500.2500, L500.3400, L501.5200, L501.2450 ####[facility] [address] [place], [address] ECRCL 118.82 ml/min Normal 50-250 [facility] Comment on above: Performed By: #### L 500.2500, L500.3400, L501.5200, L501.2450 ####[facility] [address] [place], [address] GAP 12 Normal 5-15 [facility] Comment on above: Performed By: #### L 500.2500, L500.3400, L501.5200, L501.2450 ####[facility] [address] [place], [address] GFR/1.73 sq M.predicted among non-blacks MDRD (S/P/Bld) [Vol rate/Area] 115 mL/min/{1.73_m2} Normal >60 [facility] Comment on above: Result Comment: mL/m in/1.73m2 CKD-EPI Creatinine Equation (2020) Performed By: #### L 500.2500, L500.3400, L501.5200, L501.2450 ####[facility] [address] [place], [address] Glucose [Mass/Vol] 103 mg/dL High 70-99 [facility] Comment on above: Performed By: #### L 500.2500, L500.3400, L501.5200, L501.2450 ####[facility] [address] [place], [address] Potassium [Moles/Vol] 3.2 mmol/L Low 3.3-5.1 [facility] Comment on above: Performed By: #### L 500.2500, L500.3400, L501.5200, L501.2450 ####[facility] [address] [place], [address] Sodium [Moles/Vol] 137 mmol/L Normal 133-145 [facility] Comment on above: Performed By: #### L 500.2500, L500.3400, L501.5200, L501.2450 ####[facility] [address] [place], [address] Urea nitrogen [Mass/Vol] 3 mg/dL Low 4-19 [facility] Comment on above: Performed By: #### L 500.2500, L500.3400, L501.5200, L501.2450 ####[facility] [address] [place], [address] Bedside Glucoseon 04-28-2025 FINGERSTICK GLU 140 mg/dL High 74-106 [facility] Comment on above: Result Comment: CHAUNCEY GEMENT OF PATIENT CARE PER NURSING PROTOCOL Performed By: #### L 501.080 ####[facility] [address] [place], [address] FINGERSTICK GLU 181 mg/dL High 74-106 [facility] Comment on above: Result Comment: CHAUNCEY GEMENT OF PATIENT CARE PER NURSING PROTOCOL Performed By: #### L 501.080 ####[facility] [address] [place], [address] FINGERSTICK GLU 104 mg/dL Normal 74-106 [facility] Comment on above: Result Comment: CHAUNCEY RIZO OF PATIENT CARE PER NURSING PROTOCOL Performed By: #### L 501.080 ####[facility] [address] [place], [address] CBC W/Diff, Automatedon 05-3 Absolute Lymph 0.95 X10 3/uL Normal 0.83-4.51 [facility] Comment on above: Performed By: #### L 100.0100, L501.2300 ####[facility] [address] [place], [address] Absolute Neut 5.9 X10 3/uL Normal 2.0-7.7 [facility] Comment on above: Performed By: #### L 100.0100, L501.2300 ####[facility] [address] [place], [address] Basophils/100 WBC (Bld) 0.3 % Normal 0-1 [facility] Comment on above: Performed By: #### L 100.0100, L501.2300 ####[facility] [address] [place], [address] Eosinophils/100 WBC (Bld) 0.8 % Normal 0-5 [facility] Comment on above: Performed By: #### L 100.0100, L501.2300 ####[facility] [address] [place], [address] Erythrocyte distribution width (RBC) [Ratio] 12.2 % Normal 11.6-14.6 [facility] Comment on above: Performed By: #### L 100.0100, L501.2300 ####[facility] [address] [place], [address] Hematocrit (Bld) [Volume fraction] 34.3 % Low 37-47 [facility] Comment on above: Performed By: #### L 100.0100, L501.2300 ####[facility] [address] [place], [address] Hemoglobin (Bld) [Mass/Vol] 11.6 g/dL Low 12.0-15.0 [facility] Comment on above: Performed By: #### L 100.0100, L501.2300 ####[facility] [address] [place], [address] IG% 0.400 Normal 0.0-0.9 [facility] Comment on above: Result Comment: IG% - Immature Granulocytes (promyelocytes, myelocytes andmetamyelocytes) > 1% indicates that a LEFT SHIFT is Present. Performed By: #### L 100.0100, L501.2300 ####[facility] [address] [place], [address] Lymphocytes/100 WBC (Bld) 12.5 % Low 19-41 [facility] Comment on above: Performed By: #### L 100.0100, L501.2300 ####[facility] [address] [place], [address] MCH (RBC) [Entitic mass] 36.4 pg High 27.0-32.0 [facility] Comment on above: Performed By: #### L 100.0100, L501.2300 ####[facility] [address] [place], [address] MCHC (RBC) [Mass/Vol] 33.8 g/dL Normal 32-36 [facility] Comment on above: Performed By: #### L 100.0100, L501.2300 ####[facility] [address] [place], [address] MCV (RBC) [Entitic vol] 107.5 fL High 81-99 [facility] Comment on above: Performed By: #### L 100.0100, L501.2300 ####[facility] [address] [place], [address] Monocytes/100 WBC (Bld) 8.0 % Normal 0-10 [facility] Comment on above: Performed By: #### L 100.0100, L501.2300 ####[facility] [address] [place], [address] Neutrophils/100 WBC (Bld) 78.0 % High 47-70 [facility] Comment on above: Performed By: #### L 100.0100, L501.2300 ####[facility] [address] [place], [address] Nucleated RBC (Bld) [#/Vol] 0 10*3/uL Normal 0-5 [facility] Comment on above: Performed By: #### L 100.0100, L501.2300 ####[facility] [address] [place], [address] Platelet mean volume (Bld) [Entitic vol] 10.3 fL Normal 6.2-12.0 [facility] Comment on above: Performed By: #### L 100.0100, L501.2300 ####[facility] [address] [place], [address] Platelets (Bld) [#/Vol] 119 10*3/uL Low 150-450 [facility] Comment on above: Performed By: #### L 100.0100, L501.2300 ####[facility] [address] [place], [address] RBC (Bld) [#/Vol] 3.19 10*6/uL Low 4.2-5.4 [facility] Comment on above: Performed By: #### L 100.0100, L501.2300 ####[facility] [address] [place], [address] RDW SD 48.2 fl High 35.1-43.9 [facility] Comment on above: Performed By: #### L 100.0100, L501.2300 ####[facility] [address] [place], [address] WBC (Bld) [#/Vol] 7.6 10*3/uL Normal 4.4-11.0 [facility] Comment on above: Performed By: #### L 100.0100, L501.2300 ####[facility] [address] [place], [address] Lipaseon 04-28-2025 Lipase [Catalytic activity/Vol] 533 U/L High 13-75 [facility] Comment on above: Result Comment: Lucie schultz note:LIPASE revised reference range effective 23.New Lipase methodology. Expected to produce lower valuesthan the previous assay method.NEW Reference Range: 13 - 75 U/L Performed By: #### L 500.2500, L500.3400, L501.5200, L501.2450 ####[facility] [address] [place], [address] Lipase measurementOrdered By : Canelo Myers on 04-28-2025 Lipase [Catalytic activity/Vol] 533 U/L High 13-75 [facility] Comment on above: Please note:LIPASE r evised reference range effective 23. New Lipase methodology. Expected to produce lower values than the previous assay method. NEW Reference Range: 13 - 75 U/L Liver Profileon 04-28-2025 Albumin [Mass/Vol] 3.7 g/dL Normal 3.5-5.0 [facility] Comment on above: Performed By: #### L 500.2500, L500.3400, L501.5200, L501.2450 ####[facility] [address] [place], [address] ALK PHOS 158 U/L High 35-104 [facility] Comment on above: Performed By: #### L 500.2500, L500.3400, L501.5200, L501.2450 ####[facility] [address] [place], [address] ALT [Catalytic activity/Vol] 72 U/L High <=34 [facility] Comment on above: Performed By: #### L 500.2500, L500.3400, L501.5200, L501.2450 ####[facility] [address] [place], [address] AST [Catalytic activity/Vol] 265 U/L High <=31 [facility] Comment on above: Performed By: #### L 500.2500, L500.3400, L501.5200, L501.2450 ####[facility] [address] [place], [address] Bilirubin [Mass/Vol] 1.26 mg/dL Normal 0.00-1.30 [facility] Comment on above: Performed By: #### L 500.2500, L500.3400, L501.5200, L501.2450 ####[facility] [address] [place], [address] Bilirubin.direct [Mass/Vol] 0.79 mg/dL High 0.00-0.30 [facility] Comment on above: Performed By: #### L 500.2500, L500.3400, L501.5200, L501.2450 ####[facility] [address] [place], [address] Globulin (S) [Mass/Vol] 2.6 g/dL Normal 2.2-4.2 [facility] Comment on above: Performed By: #### L 500.2500, L500.3400, L501.5200, L501.2450 ####[facility] [address] [place], [address] T PROT 6.3 g/dL Normal 5.9-8.4 [facility] Comment on above: Performed By: #### L 500.2500, L500.3400, L501.5200, L501.2450 ####[facility] [address] [place], [address] Magnesiumon 04-28-2025 Magnesium [Mass/Vol] 1.5 mg/dL Normal 1.5-2.2 [facility] Comment on above: Performed By: #### L 500.2500, L500.3400, L501.5200, L501.2450 ####[facility] [address] [place], [address] Phosphoruson 04-28-2025 Phosphate [Mass/Vol] 1.5 mg/dL Low 2.7-4.5 [facility] Comment on above: Performed By: #### L 100.0100, L501.2300 ####[facility] [address] [place], [address] Basic Metabolic Profile (BMP )on 04-27-2025 BUN/CRE 9.1 RATIO Low 10-20 [facility] Comment on above: Performed By: #### L 300.3900, L500.3400, L501.2300, L501.5200, L501.9520, L500.4050, L500.2500, L100.0100 ####[facility] [address] [place], [address] Calcium [Mass/Vol] 8.0 mg/dL Normal 7.6-11.0 [facility] Comment on above: Performed By: #### L 300.3900, L500.3400, L501.2300, L501.5200, L501.9520, L500.4050, L500.2500, L100.0100 ####[facility] [address] [place], [address] Chloride [Moles/Vol] 96 mmol/L Low 98-108 [facility] Comment on above: Performed By: #### L 300.3900, L500.3400, L501.2300, L501.5200, L501.9520, L500.4050, L500.2500, L100.0100 ####[facility] [address] [place], [address] CO2 [Moles/Vol] 16.0 mmol/L Low 21.0-32.0 [facility] Comment on above: Performed By: #### L 300.3900, L500.3400, L501.2300, L501.5200, L501.9520, L500.4050, L500.2500, L100.0100 ####[facility] [address] [place], [place], [id number] Creatinine [Mass/Vol] 0.69 mg/dL Low 0.70-1.20 [facility] Comment on above: Performed By: #### L 300.3900, L500.3400, L501.2300, L501.5200, L501.9520, L500.4050, L500.2500, L100.0100 ####[facility] [address] [place], [place], [id number] ECRCL 86.10 ml/min Normal 50-250 [facility] Comment on above: Performed By: #### L 300.3900, L500.3400, L501.2300, L501.5200, L501.9520, L500.4050, L500.2500, L100.0100 ####[facility] [address] [place], [address] GAP 22 High 5-15 [facility] Comment on above: Performed By: #### L 300.3900, L500.3400, L501.2300, L501.5200, L501.9520, L500.4050, L500.2500, L100.0100 ####[facility] [address] [place], [address] GFR/1.73 sq M.predicted among non-blacks MDRD (S/P/Bld) [Vol rate/Area] 107 mL/min/{1.73_m2} Normal >60 [facility] Comment on above: Result Comment: mL/m in/1.73m2 CKD-EPI Creatinine Equation (2020) Performed By: #### L 300.3900, L500.3400, L501.2300, L501.5200, L501.9520, L500.4050, L500.2500, L100.0100 ####[facility] [address] [place], [address] Glucose [Mass/Vol] 132 mg/dL High 70-99 [facility] Comment on above: Performed By: #### L 300.3900, L500.3400, L501.2300, L501.5200, L501.9520, L500.4050, L500.2500, L100.0100 ####[facility] [address] [place], [address] Potassium [Moles/Vol] 3.8 mmol/L Normal 3.3-5.1 [facility] Comment on above: Performed By: #### L 300.3900, L500.3400, L501.2300, L501.5200, L501.9520, L500.4050, L500.2500, L100.0100 ####[facility] [address] [place], [address] Sodium [Moles/Vol] 134 mmol/L Normal 133-145 [facility] Comment on above: Performed By: #### L 300.3900, L500.3400, L501.2300, L501.5200, L501.9520, L500.4050, L500.2500, L100.0100 ####[facility] [address] [place], [address] Urea nitrogen [Mass/Vol] 6 mg/dL Normal 4-19 [facility] Comment on above: Performed By: #### L 300.3900, L500.3400, L501.2300, L501.5200, L501.9520, L500.4050, L500.2500, L100.0100 ####[facility] [address] [place], [address] Bedside Glucoseon 04-27-2025 FINGERSTICK GLU 153 mg/dL High 74-106 [facility] Comment on above: Result Comment: CHAUNCEY GEMENT OF PATIENT CARE PER NURSING PROTOCOL Performed By: #### L 501.080 ####[facility] [address] [place], [address] FINGERSTICK GLU 149 mg/dL High 74-106 [facility] Comment on above: Result Comment: CHAUNCEY GEMENT OF PATIENT CARE PER NURSING PROTOCOL Performed By: #### L 501.080 ####[facility] [address] [place], [address] FINGERSTICK GLU 194 mg/dL High 74-106 [facility] Comment on above: Result Comment: CHAUNCEY GEMENT OF PATIENT CARE PER NURSING PROTOCOL Performed By: #### L 501.080 ####[facility] [address] [place], [address] FINGERSTICK GLU 107 mg/dL High 74-106 [facility] Comment on above: Result Comment: CHAUNCEY GEMENT OF PATIENT CARE PER NURSING PROTOCOL Performed By: #### L 501.080 ####[facility] [address] [place], [address] CBC W/Diff, Automatedon 05-3 0 Absolute Lymph 0.83 X10 3/uL Normal 0.83-4.51 [facility] Comment on above: Performed By: #### L 300.3900, L500.3400, L501.2300, L501.5200, L501.9520, L500.4050, L500.2500, L100.0100 ####[facility] [address] [place], [address] Absolute Neut 9.6 X10 3/uL High 2.0-7.7 [facility] Comment on above: Performed By: #### L 300.3900, L500.3400, L501.2300, L501.5200, L501.9520, L500.4050, L500.2500, L100.0100 ####[facility] [address] [place], [address] Basophils/100 WBC (Bld) 0.3 % Normal 0-1 [facility] Comment on above: Performed By: #### L 300.3900, L500.3400, L501.2300, L501.5200, L501.9520, L500.4050, L500.2500, L100.0100 ####[facility] [address] [place], [address] Eosinophils/100 WBC (Bld) 0.1 % Normal 0-5 [facility] Comment on above: Performed By: #### L 300.3900, L500.3400, L501.2300, L501.5200, L501.9520, L500.4050, L500.2500, L100.0100 ####[facility] [address] [place], [address] Erythrocyte distribution width (RBC) [Ratio] 12.7 % Normal 11.6-14.6 [facility] Comment on above: Performed By: #### L 300.3900, L500.3400, L501.2300, L501.5200, L501.9520, L500.4050, L500.2500, L100.0100 ####[facility] [address] [place], [address] Hematocrit (Bld) [Volume fraction] 39.2 % Normal 37-47 [facility] Comment on above: Performed By: #### L 300.3900, L500.3400, L501.2300, L501.5200, L501.9520, L500.4050, L500.2500, L100.0100 ####[facility] [address] [place], [address] Hemoglobin (Bld) [Mass/Vol] 13.5 g/dL Normal 12.0-15.0 [facility] Comment on above: Performed By: #### L 300.3900, L500.3400, L501.2300, L501.5200, L501.9520, L500.4050, L500.2500, L100.0100 ####[facility] [address] [place], [address] IG% 0.400 Normal 0.0-0.9 [facility] Comment on above: Result Comment: IG% - Immature Granulocytes (promyelocytes, myelocytes andmetamyelocytes) > 1% indicates that a LEFT SHIFT is Present. Performed By: #### L 300.3900, L500.3400, L501.2300, L501.5200, L501.9520, L500.4050, L500.2500, L100.0100 ####[facility] [address] [place], [address] Lymphocytes/100 WBC (Bld) 7.3 % Low 19-41 [facility] Comment on above: Performed By: #### L 300.3900, L500.3400, L501.2300, L501.5200, L501.9520, L500.4050, L500.2500, L100.0100 ####[facility] [address] [place], [address] MCH (RBC) [Entitic mass] 36.6 pg High 27.0-32.0 [facility] Comment on above: Performed By: #### L 300.3900, L500.3400, L501.2300, L501.5200, L501.9520, L500.4050, L500.2500, L100.0100 ####[facility] [address] [place], [address] MCHC (RBC) [Mass/Vol] 34.4 g/dL Normal 32-36 [facility] Comment on above: Performed By: #### L 300.3900, L500.3400, L501.2300, L501.5200, L501.9520, L500.4050, L500.2500, L100.0100 ####[facility] [address] [place], [address] MCV (RBC) [Entitic vol] 106.2 fL High 81-99 [facility] Comment on above: Performed By: #### L 300.3900, L500.3400, L501.2300, L501.5200, L501.9520, L500.4050, L500.2500, L100.0100 ####[facility] [address] [place], [address] Monocytes/100 WBC (Bld) 7.9 % Normal 0-10 [facility] Comment on above: Performed By: #### L 300.3900, L500.3400, L501.2300, L501.5200, L501.9520, L500.4050, L500.2500, L100.0100 ####[facility] [address] [place], [address] Neutrophils/100 WBC (Bld) 84.0 % High 47-70 [facility] Comment on above: Performed By: #### L 300.3900, L500.3400, L501.2300, L501.5200, L501.9520, L500.4050, L500.2500, L100.0100 ####[facility] [address] [place], [address] Nucleated RBC (Bld) [#/Vol] 0 10*3/uL Normal 0-5 [facility] Comment on above: Performed By: #### L 300.3900, L500.3400, L501.2300, L501.5200, L501.9520, L500.4050, L500.2500, L100.0100 ####[facility] [address] [place], [address] Platelet mean volume (Bld) [Entitic vol] 9.7 fL Normal 6.2-12.0 [facility] Comment on above: Performed By: #### L 300.3900, L500.3400, L501.2300, L501.5200, L501.9520, L500.4050, L500.2500, L100.0100 ####[facility] [address] [place], [address] Platelets (Bld) [#/Vol] 153 10*3/uL Normal 150-450 [facility] Comment on above: Performed By: #### L 300.3900, L500.3400, L501.2300, L501.5200, L501.9520, L500.4050, L500.2500, L100.0100 ####[facility] [address] [place], [address] RBC (Bld) [#/Vol] 3.69 10*6/uL Low 4.2-5.4 [facility] Comment on above: Performed By: #### L 300.3900, L500.3400, L501.2300, L501.5200, L501.9520, L500.4050, L500.2500, L100.0100 ####[facility] [address] [place], [place], [id number] RDW SD 49.7 fl High 35.1-43.9 [facility] Comment on above: Performed By: #### L 300.3900, L500.3400, L501.2300, L501.5200, L501.9520, L500.4050, L500.2500, L100.0100 ####[facility] [address] [place], [address] WBC (Bld) [#/Vol] 11.4 10*3/uL High 4.4-11.0 [facility] Comment on above: Performed By: #### L 300.3900, L500.3400, L501.2300, L501.5200, L501.9520, L500.4050, L500.2500, L100.0100 ####[facility] [address] [place], [address] Comprehensive Metabolic Prof ilon 04-27-2025 Albumin/Globulin [Mass ratio] 1.4 {ratio} Normal 0.9-2.4 [facility] Comment on above: Performed By: #### L 300.3900, L500.3400, L501.2300, L501.5200, L501.9520, L500.4050, L500.2500, L100.0100 ####[facility] [address] [place], [place], [id number] Hemoglobin A1con 04-27-2025 HbA1c (Bld) [Mass fraction] 5.6 % Normal <=5.6 [facility] Comment on above: Result Comment: Norm al < 5.7 % Prediabetic 5.7 - 6.4 % Diabetic >or= 6.5 % Please note range changes. Performed By: #### L 402.3782 ####[facility] [address] [place], [address] Hemoglobin A1c percentageOrd ered By: Julius Moncada on 04-27-2025 HbA1c (Bld) [Mass fraction] 5.6 % <5.7 [facility] Comment on above: Normal < 5.7 % Predi abetic 5.7 - 6.4 % Diabetic >or= 6.5 % Please note range changes. International normalized rat io (INR) calculationOrdered By: Julius Moncada on 04-27-2025 INR Coag (Bld) [Relative time] 1.0 {INR} [facility] Liver Profileon 04-27-2025 Albumin [Mass/Vol] 3.9 g/dL Normal 3.5-5.0 [facility] Comment on above: Performed By: #### L 300.3900, L500.3400, L501.2300, L501.5200, L501.9520, L500.4050, L500.2500, L100.0100 ####[facility] [address] [place], [place], [phone] ALK PHOS 98 U/L Normal 35-104 [facility] Comment on above: Performed By: #### L 300.3900, L500.3400, L501.2300, L501.5200, L501.9520, L500.4050, L500.2500, L100.0100 ####[facility] [address] [place], [place], [id number] ALT [Catalytic activity/Vol] 46 U/L High <=34 [facility] Comment on above: Performed By: #### L 300.3900, L500.3400, L501.2300, L501.5200, L501.9520, L500.4050, L500.2500, L100.0100 ####[facility] [address] [place], [place], [phone] AST [Catalytic activity/Vol] 96 U/L High <=31 [facility] Comment on above: Performed By: #### L 300.3900, L500.3400, L501.2300, L501.5200, L501.9520, L500.4050, L500.2500, L100.0100 ####[facility] [address] [place], [address] Bilirubin [Mass/Vol] 0.99 mg/dL Normal 0.00-1.30 [facility] Comment on above: Performed By: #### L 300.3900, L500.3400, L501.2300, L501.5200, L501.9520, L500.4050, L500.2500, L100.0100 ####[facility] [address] [place], [address] Bilirubin.direct [Mass/Vol] 0.54 mg/dL High 0.00-0.30 [facility] Comment on above: Performed By: #### L 300.3900, L500.3400, L501.2300, L501.5200, L501.9520, L500.4050, L500.2500, L100.0100 ####[facility] [address] [place], [address] Globulin (S) [Mass/Vol] 2.7 g/dL Normal 2.2-4.2 [facility] Comment on above: Performed By: #### L 300.3900, L500.3400, L501.2300, L501.5200, L501.9520, L500.4050, L500.2500, L100.0100 ####[facility] [address] [place], [address] T PROT 6.6 g/dL Normal 5.9-8.4 [facility] Comment on above: Performed By: #### L 300.3900, L500.3400, L501.2300, L501.5200, L501.9520, L500.4050, L500.2500, L100.0100 ####[facility] [address] [place], [address] Magnesiumon 04-27-2025 Magnesium [Mass/Vol] 0.9 mg/dL Invalid Interpretation Code 1.5-2.2 [facility] Comment on above: Result Comment: Crit ical Result(s) Called at:04/27/2025-02:13 by: Rachel.??Results read back by same. Performed By: #### L 300.3900, L500.3400, L501.2300, L501.5200, L501.9520, L500.4050, L500.2500, L100.0100 ####[facility] [address] [place], [place], [id number] Phosphoruson 04-27-2025 Phosphate [Mass/Vol] 3.3 mg/dL Normal 2.7-4.5 [facility] Comment on above: Performed By: #### L 300.3900, L500.3400, L501.2300, L501.5200, L501.9520, L500.4050, L500.2500, L100.0100 ####[facility] [address] [place], [place], [phone] Prothrombin Time w/INRon INR Coag (PPP) [Relative time] 1.0 {INR} Normal [facility] Comment on above: Performed By: #### L 300.3900, L500.3400, L501.2300, L501.5200, L501.9520, L500.4050, L500.2500, L100.0100 ####[facility] [address] [place], [place], [id number] PT Coag (PPP) [Time] 12.9 s Normal 11.7-14.9 [facility] Comment on above: Performed By: #### L 300.3900, L500.3400, L501.2300, L501.5200, L501.9520, L500.4050, L500.2500, L100.0100 ####[facility] [address] [place], [place], [id number] Prothrombin timeOrdered By: Julius Moncada on 04-27-2025 PT Coag (PPP) [Time] 12.9 s 11.7-14.9 [facility] TSH DL <= 0.005 mIU/L QnOrde red By: Julius Moncada on 04-27-2025 TSH Qn 4.010 uIU/mL 0.300-4.200 [facility] Comment on above: Previous reported re sult: 3.960 uIU/mLEdited by: BRITTNEY on 04/27/25:0236 AMENDED REPORT 04/27/25235 TSH previously reported as: 3.960 uIU/mL Thyroid Stim Hormone (TSH)on 04-27-2025 TSH 4.010 uIU/mL Normal 0.300-4.200 [facility] Comment on above: Result Comment: AMENDED REPORT 04/27/25235 TSH previously reported as: 3.960 uIU/mL Performed By: #### L 300.3900, L500.3400, L501.2300, L501.5200, L501.9520, L500.4050, L500.2500, L100.0100 ####[facility] [address] [place], [place], [phone] Abdomen/Pelvis W IV Cont ONL Yon 04-26-2025 Abdomen/Pelvis W IV Cont ONLY Normal [facility] Absolute lymphocyte countOrd ered By: Humphrey Garcia on 04-26-2025 Lymphocytes Auto (Unsp spec) [#/Vol] 0.76 10*3/uL Low 0.83-4.51 [facility] Absolute neutrophil countOrd ered By: Humphrey Garcia on 04-26-2025 Neutrophils (Bld) [#/Vol] 8.8 10*3/uL High 2.0-7.7 [facility] Alcohol, Blood (Medical)-Ser umon 04-26-2025 SERUM ETOH < 10.1 Normal <=10.0 [facility] Comment on above: Result Comment: This test is for medical purposes only. The legaldefinition of intoxication varies according to local law. Performed By: #### L 501.9100 ####[facility] [address] [place], [address] Anion gap in Serum or Plasma Ordered By: Humphrey Garcia on 04-26-2025 Anion gap [Moles/Vol] 36 mmol/L High 5-15 [facility] Automated lymphocyte count a s percentage of total leukocytesOrdered By: Humphrey Garcia on 04-26-2025 Lymphocytes/100 WBC Auto (Unsp spec) 7.3 % Low 19-41 [facility] BUN/creatinine ratioOrdered By: Humphrey Garcia on 04-26-2025 Urea nitrogen/Creatinine [Mass ratio] 11.2 mg/mg 10-20 [facility] Basophil percentageOrdered B y: Humphrey Garcia on 04-26-2025 Basophils/100 WBC (Bld) 0.4 % 0-1 [facility] Bilirubin Test strip Ql (U)O rdered By: Humphrey Garcia on 04-26-2025 Bilirubin Ql (U) Negative Negative [facility] Bilirubin, totalOrdered By: Humphrey Garcia on 04-26-2025 Bilirubin [Mass/Vol] 1.42 mg/dL High 0.00-1.30 [facility] CBC W/Diff, Automatedon 03-30 Absolute Lymph 0.76 X10 3/uL Low 0.83-4.51 [facility] Comment on above: Performed By: #### L 501.2450, L500.4050, L100.0100 ####[facility] [address] [place], [address] Absolute Neut 8.8 X10 3/uL High 2.0-7.7 [facility] Comment on above: Performed By: #### L 501.2450, L500.4050, L100.0100 ####[facility] [address] [place], [address] Basophils/100 WBC (Bld) 0.4 % Normal 0-1 [facility] Comment on above: Performed By: #### L 501.2450, L500.4050, L100.0100 ####[facility] [address] [place], [address] Eosinophils/100 WBC (Bld) 0.0 % Normal 0-5 [facility] Comment on above: Performed By: #### L 501.2450, L500.4050, L100.0100 ####[facility] [address] [place], [address] Erythrocyte distribution width (RBC) [Ratio] 12.8 % Normal 11.6-14.6 [facility] Comment on above: Performed By: #### L 501.2450, L500.4050, L100.0100 ####[facility] [address] [place], [address] Hematocrit (Bld) [Volume fraction] 42.8 % Normal 37-47 [facility] Comment on above: Performed By: #### L 501.2450, L500.4050, L100.0100 ####[facility] [address] [place], [address] Hemoglobin (Bld) [Mass/Vol] 14.8 g/dL Normal 12.0-15.0 [facility] Comment on above: Performed By: #### L 501.2450, L500.4050, L100.0100 ####[facility] [address] [place], [address] IG% 0.700 Normal 0.0-0.9 [facility] Comment on above: Result Comment: IG% - Immature Granulocytes (promyelocytes, myelocytes andmetamyelocytes) > 1% indicates that a LEFT SHIFT is Present. Performed By: #### L 501.2450, L500.4050, L100.0100 ####[facility] [address] [place], [address] Lymphocytes/100 WBC (Bld) 7.3 % Low 19-41 [facility] Comment on above: Performed By: #### L 501.2450, L500.4050, L100.0100 ####[facility] [address] [place], [address] MCH (RBC) [Entitic mass] 36.2 pg High 27.0-32.0 [facility] Comment on above: Performed By: #### L 501.2450, L500.4050, L100.0100 ####[facility] [address] [place], [address] MCHC (RBC) [Mass/Vol] 34.6 g/dL Normal 32-36 [facility] Comment on above: Performed By: #### L 501.2450, L500.4050, L100.0100 ####[facility] [address] [place], [address] MCV (RBC) [Entitic vol] 104.6 fL High 81-99 [facility] Comment on above: Performed By: #### L 501.2450, L500.4050, L100.0100 ####[facility] [address] [place], [address] Monocytes/100 WBC (Bld) 7.0 % Normal 0-10 [facility] Comment on above: Performed By: #### L 501.2450, L500.4050, L100.0100 ####[facility] [address] [place], [address] Neutrophils/100 WBC (Bld) 84.6 % High 47-70 [facility] Comment on above: Performed By: #### L 501.2450, L500.4050, L100.0100 ####[facility] [address] [place], [address] Nucleated RBC (Bld) [#/Vol] 0.2 10*3/uL Normal 0-5 [facility] Comment on above: Performed By: #### L 501.2450, L500.4050, L100.0100 ####[facility] [address] [place], [address] Platelet mean volume (Bld) [Entitic vol] 10.0 fL Normal 6.2-12.0 [facility] Comment on above: Performed By: #### L 501.2450, L500.4050, L100.0100 ####[facility] [address] [place], [address] Platelets (Bld) [#/Vol] 175 10*3/uL Normal 150-450 [facility] Comment on above: Performed By: #### L 501.2450, L500.4050, L100.0100 ####[facility] [address] [place], [address] RBC (Bld) [#/Vol] 4.09 10*6/uL Low 4.2-5.4 [facility] Comment on above: Performed By: #### L 501.2450, L500.4050, L100.0100 ####[facility] [address] [place], [address] RDW SD 49.4 fl High 35.1-43.9 [facility] Comment on above: Performed By: #### L 501.2450, L500.4050, L100.0100 ####[facility] [address] [place], [address] WBC (Bld) [#/Vol] 10.4 10*3/uL Normal 4.4-11.0 [facility] Comment on above: Performed By: #### L 501.2450, L500.4050, L100.0100 ####[facility] [address] [place], [address] Carbon dioxide, total [Moles /volume] in Central venous bloodOrdered By: Humphrey Garcia on 05-29-2025 CO2 [Moles/Vol] 16.4 mmol/L Low 21.0-32.0 [facility] Chloride assayOrdered By: Edison shelley Garcia on 04-26-2025 Chloride [Moles/Vol] 87 mmol/L Low 98-108 [facility] Comprehensive Metabolic Prof ilon 04-26-2025 Albumin [Mass/Vol] 4.5 g/dL Normal 3.5-5.0 [facility] Comment on above: Performed By: #### L 501.2450, L500.4050, L100.0100 ####[facility] [address] [place], [address] Albumin/Globulin [Mass ratio] 1.4 {ratio} Normal 0.9-2.4 [facility] Comment on above: Performed By: #### L 501.2450, L500.4050, L100.0100 ####[facility] [address] [place], [address] ALK PHOS 122 U/L High 35-104 [facility] Comment on above: Performed By: #### L 501.2450, L500.4050, L100.0100 ####[facility] [address] [place], [address] ALT [Catalytic activity/Vol] 62 U/L High <=34 [facility] Comment on above: Performed By: #### L 501.2450, L500.4050, L100.0100 ####[facility] [address] [place], [address] AST [Catalytic activity/Vol] 127 U/L High <=31 [facility] Comment on above: Performed By: #### L 501.2450, L500.4050, L100.0100 ####[facility] [address] [place], [address] Bilirubin [Mass/Vol] 1.42 mg/dL High 0.00-1.30 [facility] Comment on above: Performed By: #### L 501.2450, L500.4050, L100.0100 ####[facility] [address] [place], [address] BUN/CRE 11.2 RATIO Normal 10-20 [facility] Comment on above: Performed By: #### L 501.2450, L500.4050, L100.0100 ####[facility] [address] [place], [address] Calcium [Mass/Vol] 8.9 mg/dL Normal 7.6-11.0 [facility] Comment on above: Performed By: #### L 501.2450, L500.4050, L100.0100 ####[facility] [address] [place], [address] Chloride [Moles/Vol] 87 mmol/L Low 98-108 [facility] Comment on above: Performed By: #### L 501.2450, L500.4050, L100.0100 ####[facility] [address] [place], [address] CO2 [Moles/Vol] 16.4 mmol/L Low 21.0-32.0 [facility] Comment on above: Performed By: #### L 501.2450, L500.4050, L100.0100 ####[facility] [address] [place], [address] Creatinine [Mass/Vol] 0.70 mg/dL Normal 0.70-1.20 [facility] Comment on above: Performed By: #### L 501.2450, L500.4050, L100.0100 ####[facility] [address] [place], [address] ECRCL 84.87 ml/min Normal 50-250 [facility] Comment on above: Performed By: #### L 501.2450, L500.4050, L100.0100 ####[facility] [address] [place], [address] GAP 36 High 5-15 [facility] Comment on above: Performed By: #### L 501.2450, L500.4050, L100.0100 ####[facility] [address] [place], [address] GFR/1.73 sq M.predicted among non-blacks MDRD (S/P/Bld) [Vol rate/Area] 107 mL/min/{1.73_m2} Normal >60 [facility] Comment on above: Result Comment: mL/m in/1.73m2 CKD-EPI Creatinine Equation (2020) Performed By: #### L 501.2450, L500.4050, L100.0100 ####[facility] [address] [place], [address] Globulin (S) [Mass/Vol] 3.2 g/dL Normal 2.2-4.2 [facility] Comment on above: Performed By: #### L 501.2450, L500.4050, L100.0100 ####[facility] [address] [place], [address] Glucose [Mass/Vol] 156 mg/dL High 70-99 [facility] Comment on above: Performed By: #### L 501.2450, L500.4050, L100.0100 ####[facility] [address] [place], [address] Potassium [Moles/Vol] 2.8 mmol/L Low 3.3-5.1 [facility] Comment on above: Performed By: #### L 501.2450, L500.4050, L100.0100 ####[facility] [address] [place], [address] Sodium [Moles/Vol] 139 mmol/L Normal 133-145 [facility] Comment on above: Performed By: #### L 501.2450, L500.4050, L100.0100 ####[facility] [address] [place], [address] T PROT 7.7 g/dL Normal 5.9-8.4 [facility] Comment on above: Performed By: #### L 501.2450, L500.4050, L100.0100 ####[facility] [address] [place], [address] Urea nitrogen [Mass/Vol] 8 mg/dL Normal 4-19 [facility] Comment on above: Performed By: #### L 501.2450, L500.4050, L100.0100 ####[facility] [address] [place], [address] Emergency Department Summary on 04-26-2025 Emergency Department Summary Normal [facility] Eosinophil percentageOrdered By: Humphrey Garcia on 04-26-2025 Eosinophils/100 WBC (Bld) 0.0 % 0-5 [facility] Erythrocyte distribution wid th ratioOrdered By: Humphrey Garcia on 04-26-2025 Erythrocyte distribution width (RBC) [Ratio] 12.8 % 11.6-14.6 [facility] Erythrocyte distribution wid th standard deviationOrdered By: Humphrey Garcia on 04-26-2025 Erythrocyte distribution width (RBC) [Ratio] 49.4 fl High 35.1-43.9 [facility] Glomerular filtration rate ( GFR) estimation/1.73 sq m using serum, plasma, or whole bOrdered By: Humphrey Garcia on 04-26-2025 GFR/1.73 sq M.predicted among non-blacks MDRD (S/P/Bld) [Vol rate/Area] 107 mL/min/{1.73_m2} >60 [facility] Comment on above: mL/min/1.73m2 CKD-EP I Creatinine Equation (2020) H AND P Exam - Hospitaliston 04-26-2025 H&P Exam - Hospitalist Normal [facility] Hematocrit Auto (Bld) [Volum e fraction]Ordered By: Humphrey Garcia on 04-26-2025 Hematocrit (Bld) [Volume fraction] 42.8 % 37-47 [facility] Hemoglobin measurementOrdere d By: Humphrey Garcia on 04-26-2025 Hemoglobin (Bld) [Mass/Vol] 14.8 g/dL 12.0-15.0 [facility] Immature granulocytes/100 WB C Auto (Bld)Ordered By: Humphrey Garcia on 04-26-2025 Immature granulocytes/100 WBC (Bld) 0.700 % 0.0-0.9 [facility] Comment on above: IG% - Immature Granu locytes (promyelocytes, myelocytes and metamyelocytes) > 1% indicates that a LEFT SHIFT is Present. Ketones Test strip Ql (U)Ord ered By: Humphrey Garcia on 04-26-2025 Ketones Ql (U) 150 mg/dl Abnormal Negative [facility] Comment on above: CRITICAL VALUE *HCRI TICAL VALUE CALLED TO [id number]/29/25 Xochitl8 Angelita Herzog.RESULTS READ BACK BY SAME. Laboratory - Chemistry and C hemistry - challengeOrdered By: Humphrey Garcia on 04-26-2025 AST [Catalytic activity/Vol] 127 U/L High <32 [facility] Lipaseon 04-26-2025 Lipase [Catalytic activity/Vol] 1045 U/L High 13-75 [facility] Comment on above: Result Comment: Lucie schultz note:LIPASE revised reference range effective 23.New Lipase methodology. Expected to produce lower valuesthan the previous assay method.NEW Reference Range: 13 - 75 U/L Performed By: #### L 501.2450, L500.4050, L100.0100 ####[facility] [address] [facility] [place], [address] Lipase measurementOrdered By : Humphrey Garcia on 04-26-2025 Lipase [Catalytic activity/Vol] 1045 U/L High 13-75 [facility] Comment on above: Please note:LIPASE r evised reference range effective 23. New Lipase methodology. Expected to produce lower values than the previous assay method. NEW Reference Range: 13 - 75 U/L MCV (mean corpuscular volume ) determinationOrdered By: Humphrey Garcia on 04-26-2025 MCV (RBC) [Entitic vol] 104.6 fL High 81-99 [facility] Mean corpuscular hemoglobin (MCH) determinationOrdered By: Humphrey Garcia on 04-26-2025 MCH (RBC) [Entitic mass] 36.2 pg High 27.0-32.0 [facility] Mean corpuscular hemoglobin concentration (MCHC) determinationOrdered By: Humphrey Garcia on 04-26-2025 MCHC (RBC) [Mass/Vol] 34.6 g/dL 32-36 [facility] Mean platelet volume determi nationOrdered By: Humphrey Garcia on 04-26-2025 Platelet mean volume (Bld) [Entitic vol] 10.0 fL 6.2-12.0 [facility] Microscopic analysis of urin e for red blood cells (RBC)Ordered By: Humphrey Garcia on 04-26-2025 Microscopic analysis of urine for red blood cells (RBC) 0-5 SEEN /hpf 0-5 [facility] Monocyte percentageOrdered B y: Humphrey Garcia on 04-26-2025 Monocytes/100 WBC (Bld) 7.0 % 0-10 [facility] Mucus LM Ql (Urine sed)Order ed By: Humphrey Garcia on 04-26-2025 Mucus Ql (Urine sed) 0 SEEN /hpf [facility] Neutrophil percentageOrdered By: Humphrey Garcia on 04-26-2025 Neutrophils/100 WBC (Bld) 84.6 % High 47-70 [facility] Nitrite Test strip Ql (U)Ord ered By: Humphrey Garcia on 04-26-2025 Nitrite Ql (U) Negative Negative [facility] Nucleated red blood cell per centageOrdered By: Humphrey Garcia on 04-26-2025 Nucleated RBC/100 WBC (Bld) [Ratio] 0.2 % 0-5 [facility] Platelet countOrdered By: Edison Garcia on 04-26-2025 Platelets (Bld) [#/Vol] 175 10*3/uL 150-450 [facility] Potassium measurement (mass/ volume)Ordered By: Humphrey Garcia on 04-26-2025 Potassium (Unsp spec) [Mass/Vol] 2.8 mmol/L Low 3.3-5.1 [facility] Protein Test strip Ql (U)Ord ered By: Humphrey Garcia on 04-26-2025 Protein Ql (U) 30 mg/dl High Negative [facility] Prothrombin Time w/INRon INR Coag (PPP) [Relative time] 1.0 {INR} Normal [facility] Comment on above: Performed By: #### L 300.3900 ####[facility] [address] [place], [address] PT Coag (PPP) [Time] 13.3 s Normal 11.7-14.9 [facility] Comment on above: Performed By: #### L 300.3900 ####[facility] [address] [place], [address] RBC Auto (Bld) [#/Vol]Ordere d By: Humphrey Garcia on 04-26-2025 RBC (Bld) [#/Vol] 4.09 10*6/uL Low 4.2-5.4 [facility] Serum creatinine measurement (mass/volume)Ordered By: Humphrey Garcia on 04-26-2025 Creatinine [Mass/Vol] 0.70 mg/dL 0.70-1.20 [facility] Serum globulin measurementOr dered By: Humphrey Garcia on 04-26-2025 Globulin (S) [Mass/Vol] 3.2 g/dL 2.2-4.2 [facility] Serum glucose measurement (m ass/volume)Ordered By: Humphrey Garcia on 04-26-2025 Glucose [Mass/Vol] 156 mg/dL High 70-99 [facility] Serum or plasma alanine wilkerson otransferase (ALT) measurementOrdered By: Humphrey Garcia on 04-26-2025 ALT [Catalytic activity/Vol] 62 U/L High <35 [facility] Serum or plasma albumin alphonso urement (mass/volume)Ordered By: Humphrey Garcia on 04-26-2025 Albumin [Mass/Vol] 4.5 g/dL 3.5-5.0 [facility] Serum or plasma albumin/glob ulin mass ratioOrdered By: Humphrey Garcia on 04-26-2025 Albumin/Globulin [Mass ratio] 1.4 {ratio} 0.9-2.4 [facility] Serum or plasma alkaline trinity sphatase measurementOrdered By: Humphrey Garcia on 04-26-2025 ALP [Catalytic activity/Vol] 122 U/L High 35-104 [facility] Serum or plasma calcium alphonso urement (mass/volume)Ordered By: Humphrey Garcia on 04-26-2025 Calcium [Mass/Vol] 8.9 mg/dL 7.6-11.0 [facility] Serum or plasma ethanol alphonso urement (mass/volume)Ordered By: Humphrey Garcia on 04-26-2025 Ethanol [Mass/Vol] mg/dL <10.1 [facility] Comment on above: This test is for med ical purposes only. The legal definition of intoxication varies according to local law. Serum or plasma urea nitroge n measurement (mass/volume)Ordered By: Humphrey Garcia on 04-26-2025 Urea nitrogen [Mass/Vol] 8 mg/dL 4-19 [facility] Sodium levelOrdered By: Scout Garcia on 04-26-2025 Sodium [Moles/Vol] 139 mmol/L 133-145 [facility] Squamous epithelial cells de tection in urine sediment by light microscopyOrdered By: Humphrey Garcia on 04-26-2025 Epithelial cells.squamous LM Ql (Urine sed) 0-5 SEEN /hpf 5-10 [facility] Total proteinOrdered By: Carin Garcia on 04-26-2025 Protein [Mass/Vol] 7.7 g/dL 5.9-8.4 [facility] Urinalysis, Completeon 04-26 EPI,SQUAMOUS 0-5 SEEN Normal 5-10 [facility] Comment on above: Order Comment: CLEAN CATCH Performed By: #### L 400.0001 ####[facility] [address] [place], [place], [address] RBC 0-5 SEEN Normal 0-5 [facility] Comment on above: Order Comment: CLEAN CATCH Performed By: #### L 400.0001 ####[facility] [address] [place], [address] BACTERIA 0 SEEN Normal None Seen [facility] Comment on above: Order Comment: CLEAN CATCH Performed By: #### L 400.0001 ####[facility] [address] [place], [address] Mucus Ql (Urine sed) 0 SEEN Normal [facility] Comment on above: Order Comment: CLEAN CATCH Performed By: #### L 400.0001 ####[facility] [address] [place], [address] WBC 0 SEEN Normal 0-5 [facility] Comment on above: Order Comment: CLEAN CATCH Performed By: #### L 400.0001 ####[facility] [address] [place], [place], [id number] Urine clarityOrdered By: Carin Garcia on 04-26-2025 Clarity (U) Clear Clear [facility] Urine color determinationOrd ered By: Humphrey Garcia on 04-26-2025 Color (U) Yellow Yellow [facility] Urine glucose detectionOrder ed By: Humphrey Garcia on 04-26-2025 Glucose Ql (U) 1000 mg/dl High Normal [facility] Urine leukocyte esterase det ection by dipstickOrdered By: Humphrey Garcia on 04-26-2025 Leukocyte esterase Test strip Ql (U) Negative Negative [facility] Urine pHOrdered By: Humphrey tyler on 04-26-2025 pH (U) 6.0 [pH] 5.0 - 8.0 [facility] Urine sediment bacteria coun t by microscopy (number/high power field)Ordered By: Humphrey Garcia on 04-26-2025 Bacteria LM.HPF (Urine sed) [#/Area] 0 /[HPF] None Seen [facility] Urine specific gravity measu rementOrdered By: Humphrey Garcia on 04-26-2025 Specific gravity (U) [Rel density] 1.010 1.002-1.030 [facility] Urine urobilinogen measureme ntOrdered By: Humphrey Garcia on 04-26-2025 Urobilinogen Ql (U) 1 mg/dl High Normal [facility] White blood cell (WBC) count Ordered By: Humphrey Garcia on 04-26-2025 WBC (Bld) [#/Vol] 10.4 10*3/uL 4.4-11.0 [facility] White blood cell countOrdere d By: Humphrey Garcia on 04-26-2025 White blood cell count 0 SEEN /hpf 0-5 [facility] 12 Lead EKGon 04-11-2025 12 Lead EKG Normal [facility] Absolute lymphocyte countOrd ered By: Francisco Colon on 04-11-2025 Lymphocytes Auto (Unsp spec) [#/Vol] 2.10 10*3/uL 0.83-4.51 [facility] Absolute neutrophil countOrd ered By: Francisco Colon on 04-11-2025 Neutrophils (Bld) [#/Vol] 2.1 10*3/uL 2.0-7.7 [facility] Alcohol, Blood (Medical)-Ser umon 04-11-2025 SERUM ETOH 328.0 mg/dL Invalid Interpretation Code <=10.0 [facility] Comment on above: Result Comment: Crit ical Result(s) Called at:2346 by: LUISITO GEORGE??Results read back by same.This test is for medical purposes only. The legaldefinition of intoxication varies according to local law. Performed By: #### L 501.4021, L100.0100, L500.2500, L501.9100, L501.2450 ####[facility] [address] [place], [address] Anion gap in Serum or Plasma Ordered By: Francisco Colon on 04-11-2025 Anion gap [Moles/Vol] 16 mmol/L High 5-15 [facility] Automated lymphocyte count a s percentage of total leukocytesOrdered By: Francisco Colon on 04-11-2025 Lymphocytes/100 WBC Auto (Unsp spec) 42.0 % High 19-41 [facility] BUN/creatinine ratioOrdered By: Francisco Colon on 04-11-2025 Urea nitrogen/Creatinine [Mass ratio] 20.2 mg/mg High 10-20 [facility] Basic Metabolic Profile (BMP )on 04-11-2025 BUN/CRE 20.2 RATIO High 10-20 [facility] Comment on above: Performed By: #### L 501.4021, L100.0100, L500.2500, L501.9100, L501.2450 ####[facility] [address] [place], [address] Calcium [Mass/Vol] 8.8 mg/dL Normal 7.6-11.0 [facility] Comment on above: Performed By: #### L 501.4021, L100.0100, L500.2500, L501.9100, L501.2450 ####[facility] [address] [place], [address] Chloride [Moles/Vol] 100 mmol/L Normal 98-108 [facility] Comment on above: Performed By: #### L 501.4021, L100.0100, L500.2500, L501.9100, L501.2450 ####[facility] [address] [place], [address] CO2 [Moles/Vol] 28.2 mmol/L Normal 21.0-32.0 [facility] Comment on above: Performed By: #### L 501.4021, L100.0100, L500.2500, L501.9100, L501.2450 ####[facility] [address] [place], [address] Creatinine [Mass/Vol] 0.53 mg/dL Low 0.70-1.20 [facility] Comment on above: Performed By: #### L 501.4021, L100.0100, L500.2500, L501.9100, L501.2450 ####[facility] [address] [place], [address] ECRCL 112.09 ml/min Normal 50-250 [facility] Comment on above: Performed By: #### L 501.4021, L100.0100, L500.2500, L501.9100, L501.2450 ####[facility] [address] [place], [address] GAP 16 High 5-15 [facility] Comment on above: Performed By: #### L 501.4021, L100.0100, L500.2500, L501.9100, L501.2450 ####[facility] [address] [place], [address] GFR/1.73 sq M.predicted among non-blacks MDRD (S/P/Bld) [Vol rate/Area] 114 mL/min/{1.73_m2} Normal >60 [facility] Comment on above: Result Comment: mL/m in/1.73m2 CKD-EPI Creatinine Equation (2020) Performed By: #### L 501.4021, L100.0100, L500.2500, L501.9100, L501.2450 ####[facility] [address] [place], [address] Glucose [Mass/Vol] 131 mg/dL High 70-99 [facility] Comment on above: Performed By: #### L 501.4021, L100.0100, L500.2500, L501.9100, L501.2450 ####[facility] [address] [place], [address] Potassium [Moles/Vol] 3.2 mmol/L Low 3.3-5.1 [facility] Comment on above: Performed By: #### L 501.4021, L100.0100, L500.2500, L501.9100, L501.2450 ####[facility] [address] [place], [address] Sodium [Moles/Vol] 144 mmol/L Normal 133-145 [facility] Comment on above: Performed By: #### L 501.4021, L100.0100, L500.2500, L501.9100, L501.2450 ####[facility] [address] [place], [address] Urea nitrogen [Mass/Vol] 11 mg/dL Normal 4-19 [facility] Comment on above: Performed By: #### L 501.4021, L100.0100, L500.2500, L501.9100, L501.2450 ####[facility] [address] [place], [address] Basophil percentageOrdered B y: Francisco Colon on 04-11-2025 Basophils/100 WBC (Bld) 1.2 % High 0-1 [facility] Bilirubin Test strip Ql (U)O rdered By: Francisco Colon on 04-11-2025 Bilirubin Ql (U) Negative Negative [facility] CBC W/Diff, Automatedon 03-29 Absolute Lymph 2.10 X10 3/uL Normal 0.83-4.51 [facility] Comment on above: Performed By: #### L 501.4021, L100.0100, L500.2500, L501.9100, L501.2450 ####[facility] [address] [place], [address] Absolute Neut 2.1 X10 3/uL Normal 2.0-7.7 [facility] Comment on above: Performed By: #### L 501.4021, L100.0100, L500.2500, L501.9100, L501.2450 ####[facility] [address] [place], [address] Basophils/100 WBC (Bld) 1.2 % High 0-1 [facility] Comment on above: Performed By: #### L 501.4021, L100.0100, L500.2500, L501.9100, L501.2450 ####[facility] [address] [place], [address] Eosinophils/100 WBC (Bld) 0.8 % Normal 0-5 [facility] Comment on above: Performed By: #### L 501.4021, L100.0100, L500.2500, L501.9100, L501.2450 ####[facility] [address] [place], [address] Erythrocyte distribution width (RBC) [Ratio] 13.5 % Normal 11.6-14.6 [facility] Comment on above: Performed By: #### L 501.4021, L100.0100, L500.2500, L501.9100, L501.2450 ####[facility] [address] [place], [address] Hematocrit (Bld) [Volume fraction] 37.7 % Normal 37-47 [facility] Comment on above: Performed By: #### L 501.4021, L100.0100, L500.2500, L501.9100, L501.2450 ####[facility] [address] [place], [address] Hemoglobin (Bld) [Mass/Vol] 13.5 g/dL Normal 12.0-15.0 [facility] Comment on above: Performed By: #### L 501.4021, L100.0100, L500.2500, L501.9100, L501.2450 ####[facility] [address] [place], [address] IG% 0.200 Normal 0.0-0.9 [facility] Comment on above: Result Comment: IG% - Immature Granulocytes (promyelocytes, myelocytes andmetamyelocytes) > 1% indicates that a LEFT SHIFT is Present. Performed By: #### L 501.4021, L100.0100, L500.2500, L501.9100, L501.2450 ####[facility] [address] [place], [address] Lymphocytes/100 WBC (Bld) 42.0 % High 19-41 [facility] Comment on above: Performed By: #### L 501.4021, L100.0100, L500.2500, L501.9100, L501.2450 ####[facility] [address] [place], [address] MCH (RBC) [Entitic mass] 37.4 pg High 27.0-32.0 [facility] Comment on above: Performed By: #### L 501.4021, L100.0100, L500.2500, L501.9100, L501.2450 ####[facility] [address] [place], [address] MCHC (RBC) [Mass/Vol] 35.8 g/dL Normal 32-36 [facility] Comment on above: Performed By: #### L 501.4021, L100.0100, L500.2500, L501.9100, L501.2450 ####[facility] [address] [place], [address] MCV (RBC) [Entitic vol] 104.4 fL High 81-99 [facility] Comment on above: Performed By: #### L 501.4021, L100.0100, L500.2500, L501.9100, L501.2450 ####[facility] [address] [place], [address] Monocytes/100 WBC (Bld) 13.2 % High 0-10 [facility] Comment on above: Performed By: #### L 501.4021, L100.0100, L500.2500, L501.9100, L501.2450 ####[facility] [address] [place], [address] Neutrophils/100 WBC (Bld) 42.6 % Low 47-70 [facility] Comment on above: Performed By: #### L 501.4021, L100.0100, L500.2500, L501.9100, L501.2450 ####[facility] [address] [place], [address] Nucleated RBC (Bld) [#/Vol] 0.4 10*3/uL Normal 0-5 [facility] Comment on above: Performed By: #### L 501.4021, L100.0100, L500.2500, L501.9100, L501.2450 ####[facility] [address] [place], [address] Platelet mean volume (Bld) [Entitic vol] 9.6 fL Normal 6.2-12.0 [facility] Comment on above: Performed By: #### L 501.4021, L100.0100, L500.2500, L501.9100, L501.2450 ####[facility] [address] [place], [address] Platelets (Bld) [#/Vol] 246 10*3/uL Normal 150-450 [facility] Comment on above: Performed By: #### L 501.4021, L100.0100, L500.2500, L501.9100, L501.2450 ####[facility] [address] [place], [address] RBC (Bld) [#/Vol] 3.61 10*6/uL Low 4.2-5.4 [facility] Comment on above: Performed By: #### L 501.4021, L100.0100, L500.2500, L501.9100, L501.2450 ####[facility] [address] [place], [address] RDW SD 51.4 fl High 35.1-43.9 [facility] Comment on above: Performed By: #### L 501.4021, L100.0100, L500.2500, L501.9100, L501.2450 ####[facility] [address] [place], [address] WBC (Bld) [#/Vol] 5.0 10*3/uL Normal 4.4-11.0 [facility] Comment on above: Performed By: #### L 501.4021, L100.0100, L500.2500, L501.9100, L501.2450 ####[facility] [address] [place], [address] Carbon dioxide, total [Moles /volume] in Central venous bloodOrdered By: Francisco Colon on 04-11-2025 CO2 [Moles/Vol] 28.2 mmol/L 21.0-32.0 [facility] Chest PA and Lateralon 04-11 Chest PA and Lateral Normal [facility] Chloride assayOrdered By: Peyman Colon on 04-11-2025 Chloride [Moles/Vol] 100 mmol/L 98-108 [facility] Emergency Department Summary on 04-11-2025 Emergency Department Summary Normal [facility] Eosinophil percentageOrdered By: Francisco Colon on 04-11-2025 Eosinophils/100 WBC (Bld) 0.8 % 0-5 [facility] Erythrocyte distribution wid th ratioOrdered By: Francisco Colon on 04-11-2025 Erythrocyte distribution width (RBC) [Ratio] 13.5 % 11.6-14.6 [facility] Erythrocyte distribution wid th standard deviationOrdered By: Francisco Colon on 04-11-2025 Erythrocyte distribution width (RBC) [Ratio] 51.4 fl High 35.1-43.9 [facility] Glomerular filtration rate ( GFR) estimation/1.73 sq m using serum, plasma, or whole bOrdered By: Francisco Colon on 04-11-2025 GFR/1.73 sq M.predicted among non-blacks MDRD (S/P/Bld) [Vol rate/Area] 114 mL/min/{1.73_m2} >60 [facility] Comment on above: mL/min/1.73m2 CKD-EP I Creatinine Equation (2020) Hematocrit Auto (Bld) [Volum e fraction]Ordered By: Francisco Colon on 04-11-2025 Hematocrit (Bld) [Volume fraction] 37.7 % 37-47 [facility] Hemoglobin measurementOrdere d By: Francisco Colon on 04-11-2025 Hemoglobin (Bld) [Mass/Vol] 13.5 g/dL 12.0-15.0 [facility] Immature granulocytes/100 WB C Auto (Bld)Ordered By: Francisco Colon on 04-11-2025 Immature granulocytes/100 WBC (Bld) 0.200 % 0.0-0.9 [facility] Comment on above: IG% - Immature Granu locytes (promyelocytes, myelocytes and metamyelocytes) > 1% indicates that a LEFT SHIFT is Present. Ketones Test strip Ql (U)Ord ered By: Francisco Colon on 04-11-2025 Ketones Ql (U) Negative Negative [facility] L501.4021on 04-11-2025 Trop T High Sen < 6 Normal <=14 [facility] Comment on above: Performed By: #### L 501.4021, L100.0100, L500.2500, L501.9100, L501.2450 ####[facility] [address] [place], [place], [id number] Lipaseon 04-11-2025 Lipase [Catalytic activity/Vol] 70 U/L Normal - [facility] Comment on above: Result Comment: Lucie schultz note:LIPASE revised reference range effective 23.New Lipase methodology. Expected to produce lower valuesthan the previous assay method.NEW Reference Range: 13 - 75 U/L Performed By: #### L 501.4021, L100.0100, L500.2500, L501.9100, L501.2450 ####[facility] [address] [place], [place], [id number] Lipase measurementOrdered By : Francisco Colon on 04-11-2025 Lipase [Catalytic activity/Vol] 70 U/L - [facility] Comment on above: Please note:LIPASE r evised reference range effective 23. New Lipase methodology. Expected to produce lower values than the previous assay method. NEW Reference Range: 13 - 75 U/L MCV (mean corpuscular volume ) determinationOrdered By: Francisco Colon on 04-11-2025 MCV (RBC) [Entitic vol] 104.4 fL High 81-99 [facility] Mean corpuscular hemoglobin (MCH) determinationOrdered By: Francisco Colon on 04-11-2025 MCH (RBC) [Entitic mass] 37.4 pg High 27.0-32.0 [facility] Mean corpuscular hemoglobin concentration (MCHC) determinationOrdered By: Francisco Colon on 04-11-2025 MCHC (RBC) [Mass/Vol] 35.8 g/dL 32-36 [facility] Mean platelet volume determi nationOrdered By: Francisco Colon on 04-11-2025 Platelet mean volume (Bld) [Entitic vol] 9.6 fL 6.2-12.0 [facility] Microscopic analysis of urin e for red blood cells (RBC)Ordered By: Francisco Colon on 04-11-2025 Microscopic analysis of urine for red blood cells (RBC) 0 SEEN /hpf 0-5 [facility] Monocyte percentageOrdered B y: Francisco Colon on 04-11-2025 Monocytes/100 WBC (Bld) 13.2 % High 0-10 [facility] Mucus LM Ql (Urine sed)Order ed By: Francisco Colon on 04-11-2025 Mucus Ql (Urine sed) 0 SEEN /hpf [facility] Neutrophil percentageOrdered By: Francisco Colon on 04-11-2025 Neutrophils/100 WBC (Bld) 42.6 % Low 47-70 [facility] Nitrite Test strip Ql (U)Ord ered By: Francisco Colon on 04-11-2025 Nitrite Ql (U) Negative Negative [facility] Nucleated red blood cell per centageOrdered By: Francisco Colon on 04-11-2025 Nucleated RBC/100 WBC (Bld) [Ratio] 0.4 % 0-5 [facility] Platelet countOrdered By: Peyman Colon on 04-11-2025 Platelets (Bld) [#/Vol] 246 10*3/uL 150-450 [facility] Potassium measurement (mass/ volume)Ordered By: Francisco Colon on 04-11-2025 Potassium (Unsp spec) [Mass/Vol] 3.2 mmol/L Low 3.3-5.1 [facility] Protein Test strip Ql (U)Ord ered By: Francisco Colon on 04-11-2025 Protein Ql (U) 15 mg/dl High Negative [facility] RBC Auto (Bld) [#/Vol]Ordere d By: Francisco Colon on 04-11-2025 RBC (Bld) [#/Vol] 3.61 10*6/uL Low 4.2-5.4 [facility] Serum creatinine measurement (mass/volume)Ordered By: Francisco Colon on 04-11-2025 Creatinine [Mass/Vol] 0.53 mg/dL Low 0.70-1.20 [facility] Serum glucose measurement (m ass/volume)Ordered By: Francisco Colon on 04-11-2025 Glucose [Mass/Vol] 131 mg/dL High 70-99 [facility] Serum or plasma calcium alphonso urement (mass/volume)Ordered By: Francisco Colon on 04-11-2025 Calcium [Mass/Vol] 8.8 mg/dL 7.6-11.0 [facility] Serum or plasma ethanol alphonso urement (mass/volume)Ordered By: Francisco Colon on 04-11-2025 Ethanol [Mass/Vol] 328.0 mg/dL High <10.1 [facility] Comment on above: Critical Result(s) C alled at:2346 by: LUISITO SONI TO CELINA LUJAN Results read back by same.This test is for medical purposes only. The legal definition of intoxication varies according to local law. Serum or plasma urea nitroge n measurement (mass/volume)Ordered By: Francisco Colon on 04-11-2025 Urea nitrogen [Mass/Vol] 11 mg/dL 4-19 [facility] Sodium levelOrdered By: Francisco Colon on 04-11-2025 Sodium [Moles/Vol] 144 mmol/L 133-145 [facility] Squamous epithelial cells de tection in urine sediment by light microscopyOrdered By: Francisco Colon on 04-11-2025 Epithelial cells.squamous LM Ql (Urine sed) 0 SEEN /hpf 5-10 [facility] Troponin T.cardiac [Mass/vol ume] in Serum or Plasma by High sensitivity methodOrdered By: Francisco Colon on 04-11-2025 Troponin T.cardiac High sensitivity method [Mass/Vol] < 6 ng/L <14 [facility] Urinalysis, Completeon 04-11 BACTERIA 0 SEEN Normal None Seen [facility] Comment on above: Order Comment: [place] CTOR TO SPECIFY Performed By: #### L 400.0001 ####[facility] [address] [place], [address] EPI,SQUAMOUS 0 SEEN Normal 5-10 [facility] Comment on above: Order Comment: [place] CTOR TO SPECIFY Performed By: #### L 400.0001 ####[facility] [address] [place], [address] Mucus Ql (Urine sed) 0 SEEN Normal [facility] Comment on above: Order Comment: [place] CTOR TO SPECIFY Performed By: #### L 400.0001 ####[facility] [address] [place], [address] RBC 0 SEEN Normal 0-5 [facility] Comment on above: Order Comment: [place] CTOR TO SPECIFY Performed By: #### L 400.0001 ####[facility] [address] [place], [address] WBC 0 SEEN Normal 0-5 [facility] Comment on above: Order Comment: [place] CTOR TO SPECIFY Performed By: #### L 400.0001 ####[facility] [address] [place], [address] Urine clarityOrdered By: Rommel Colon on 04-11-2025 Clarity (U) Clear Clear [facility] Urine color determinationOrd ered By: Francisco Colon on 04-11-2025 Color (U) Yellow Yellow [facility] Urine glucose detectionOrder ed By: Francisco Colon on 04-11-2025 Glucose Ql (U) Normal mg/dl Normal [facility] Urine leukocyte esterase det ection by dipstickOrdered By: Francisco Colon on 04-11-2025 Leukocyte esterase Test strip Ql (U) Negative Negative [facility] Urine pHOrdered By: Francisco Rosenberg ghbecky on 04-11-2025 pH (U) 7.0 [pH] 5.0 - 8.0 [facility] Urine sediment bacteria coun t by microscopy (number/high power field)Ordered By: Francisco Colon on 04-11-2025 Bacteria LM.HPF (Urine sed) [#/Area] 0 /[HPF] None Seen [facility] Urine specific gravity measu rementOrdered By: Francisco Colon on 04-11-2025 Specific gravity (U) [Rel density] 1.010 1.002-1.030 [facility] Urine urobilinogen measureme ntOrdered By: Francisco Colon on 04-11-2025 Urobilinogen Ql (U) Normal mg/dl Normal [facility] White blood cell (WBC) count Ordered By: Francisco Colon on 04-11-2025 WBC (Bld) [#/Vol] 5.0 10*3/uL 4.4-11.0 [facility] White blood cell countOrdere d By: Francisco Colon on 04-11-2025 White blood cell count 0 SEEN /hpf 0-5 [facility] 12 Lead EKGon 04-04-2025 12 Lead EKG Normal [facility] Abdomen/Pelvis W IV Cont ONL Yon 04-04-2025 Abdomen/Pelvis W IV Cont ONLY Normal [facility] Absolute lymphocyte countOrd ered By: ED PROVIDER on 04-04-2025 Lymphocytes Auto (Unsp spec) [#/Vol] 1.23 10*3/uL 0.83-4.51 [facility] Absolute neutrophil countOrd ered By: ED PROVIDER on 04-04-2025 Neutrophils (Bld) [#/Vol] 6.8 10*3/uL 2.0-7.7 [facility] Anion gap in Serum or Plasma Ordered By: Imani Knight on 04-04-2025 Anion gap [Moles/Vol] 18 mmol/L High 5-15 [facility] Automated lymphocyte count a s percentage of total leukocytesOrdered By: ED PROVIDER on 04-04-2025 Lymphocytes/100 WBC Auto (Unsp spec) 14.0 % Low 19-41 [facility] BUN/creatinine ratioOrdered By: Imani Knight on 04-04-2025 Urea nitrogen/Creatinine [Mass ratio] 8.7 mg/mg Low 10-20 [facility] Basic Metabolic Profile (BMP )on 04-04-2025 BUN/CRE 8.7 RATIO Low 10-20 [facility] Comment on above: Performed By: #### L 500.2500, L501.4021, L100.0100 ####[facility] [address] [place], [address] Calcium [Mass/Vol] 8.4 mg/dL Normal 7.6-11.0 [facility] Comment on above: Performed By: #### L 500.2500, L501.4021, L100.0100 ####[facility] [address] [place], [address] Chloride [Moles/Vol] 94 mmol/L Low 98-108 [facility] Comment on above: Performed By: #### L 500.2500, L501.4021, L100.0100 ####[facility] [address] [place], [address] CO2 [Moles/Vol] 27.3 mmol/L Normal 21.0-32.0 [facility] Comment on above: Performed By: #### L 500.2500, L501.4021, L100.0100 ####[facility] [address] [place], [address] Creatinine [Mass/Vol] 0.55 mg/dL Low 0.70-1.20 [facility] Comment on above: Performed By: #### L 500.2500, L501.4021, L100.0100 ####[facility] [address] [place], [address] GAP 18 High 5-15 [facility] Comment on above: Performed By: #### L 500.2500, L501.4021, L100.0100 ####[facility] [address] [place], [address] GFR/1.73 sq M.predicted among non-blacks MDRD (S/P/Bld) [Vol rate/Area] 113 mL/min/{1.73_m2} Normal >60 [facility] Comment on above: Result Comment: mL/m in/1.73m2 CKD-EPI Creatinine Equation (2020) Performed By: #### L 500.2500, L501.4021, L100.0100 ####[facility] [address] [place], [address] Glucose [Mass/Vol] 131 mg/dL High 70-99 [facility] Comment on above: Performed By: #### L 500.2500, L501.4021, L100.0100 ####[facility] [address] [place], [address] Potassium [Moles/Vol] 2.9 mmol/L Low 3.3-5.1 [facility] Comment on above: Performed By: #### L 500.2500, L501.4021, L100.0100 ####[facility] [address] [place], [address] Sodium [Moles/Vol] 139 mmol/L Normal 133-145 [facility] Comment on above: Performed By: #### L 500.2500, L501.4021, L100.0100 ####[facility] [address] [place], [address] Urea nitrogen [Mass/Vol] 5 mg/dL Normal 4-19 [facility] Comment on above: Performed By: #### L 500.2500, L501.4021, L100.0100 ####[facility] [address] [place], [address] Basophil percentageOrdered B y: ED PROVIDER on 04-04-2025 Basophils/100 WBC (Bld) 0.7 % 0-1 [facility] Bilirubin directOrdered By: Imani Knight on 04-04-2025 Bilirubin.direct [Mass/Vol] 0.67 mg/dL High 0.00-0.30 [facility] Bilirubin, totalOrdered By: Imani Knight on 04-04-2025 Bilirubin [Mass/Vol] 1.26 mg/dL 0.00-1.30 [facility] CBC W/Diff, Automatedon Absolute Lymph 1.23 X10 3/uL Normal 0.83-4.51 [facility] Comment on above: Performed By: #### L 500.2500, L501.4021, L100.0100 ####[facility] [address] [place], [address] Absolute Neut 6.8 X10 3/uL Normal 2.0-7.7 [facility] Comment on above: Performed By: #### L 500.2500, L501.4021, L100.0100 ####[facility] [address] [place], [address] Basophils/100 WBC (Bld) 0.7 % Normal 0-1 [facility] Comment on above: Performed By: #### L 500.2500, L501.4021, L100.0100 ####[facility] [address] [place], [address] Eosinophils/100 WBC (Bld) 0.2 % Normal 0-5 [facility] Comment on above: Performed By: #### L 500.2500, L501.4021, L100.0100 ####[facility] [address] [place], [address] Erythrocyte distribution width (RBC) [Ratio] 13.5 % Normal 11.6-14.6 [facility] Comment on above: Performed By: #### L 500.2500, L501.4021, L100.0100 ####[facility] [address] [place], [address] Hematocrit (Bld) [Volume fraction] 40.3 % Normal 37-47 [facility] Comment on above: Performed By: #### L 500.2500, L501.4021, L100.0100 ####[facility] [address] [place], [address] Hemoglobin (Bld) [Mass/Vol] 14.3 g/dL Normal 12.0-15.0 [facility] Comment on above: Performed By: #### L 500.2500, L501.4021, L100.0100 ####[facility] [address] [place], [address] IG% 0.300 Normal 0.0-0.9 [facility] Comment on above: Result Comment: IG% - Immature Granulocytes (promyelocytes, myelocytes andmetamyelocytes) > 1% indicates that a LEFT SHIFT is Present. Performed By: #### L 500.2500, L501.4021, L100.0100 ####[facility] [facility] [address] [place], [address] Lymphocytes/100 WBC (Bld) 14.0 % Low 19-41 [facility] Comment on above: Performed By: #### L 500.2500, L501.4021, L100.0100 ####[facility] [address] [place], [address] MCH (RBC) [Entitic mass] 35.4 pg High 27.0-32.0 [facility] Comment on above: Performed By: #### L 500.2500, L501.4021, L100.0100 ####[facility] [address] [place], [address] MCHC (RBC) [Mass/Vol] 35.5 g/dL Normal 32-36 [facility] Comment on above: Performed By: #### L 500.2500, L501.4021, L100.0100 ####[facility] [address] [place], [address] MCV (RBC) [Entitic vol] 99.8 fL High 81-99 [facility] Comment on above: Performed By: #### L 500.2500, L501.4021, L100.0100 ####[facility] [address] [place], [address] Monocytes/100 WBC (Bld) 7.8 % Normal 0-10 [facility] Comment on above: Performed By: #### L 500.2500, L501.4021, L100.0100 ####[facility] [address] [place], [address] Neutrophils/100 WBC (Bld) 77.0 % High 47-70 [facility] Comment on above: Performed By: #### L 500.2500, L501.4021, L100.0100 ####[facility] [address] [place], [address] Nucleated RBC (Bld) [#/Vol] 0.2 10*3/uL Normal 0-5 [facility] Comment on above: Performed By: #### L 500.2500, L501.4021, L100.0100 ####[facility] [address] [place], [address] Platelet mean volume (Bld) [Entitic vol] 10.0 fL Normal 6.2-12.0 [facility] Comment on above: Performed By: #### L 500.2500, L501.4021, L100.0100 ####[facility] [address] [place], [address] Platelets (Bld) [#/Vol] 186 10*3/uL Normal 150-450 [facility] Comment on above: Performed By: #### L 500.2500, L501.4021, L100.0100 ####[facility] [address] [place], [address] RBC (Bld) [#/Vol] 4.04 10*6/uL Low 4.2-5.4 [facility] Comment on above: Performed By: #### L 500.2500, L501.4021, L100.0100 ####[facility] [address] [place], [address] RDW SD 50.3 fl High 35.1-43.9 [facility] Comment on above: Performed By: #### L 500.2500, L501.4021, L100.0100 ####[facility] [address] [place], [address] WBC (Bld) [#/Vol] 8.8 10*3/uL Normal 4.4-11.0 [facility] Comment on above: Performed By: #### L 500.2500, L501.4021, L100.0100 ####[facility] [address] [place], [address] Carbon dioxide, total [Moles /volume] in Central venous bloodOrdered By: Imani Knight on 04-04-2025 CO2 [Moles/Vol] 27.3 mmol/L 21.0-32.0 [facility] Chest 1 View (Portable)on Chest 1 View (Portable) Normal [facility] Chloride assayOrdered By: Nash Knight on 04-04-2025 Chloride [Moles/Vol] 94 mmol/L Low 98-108 [facility] Emergency Department Summary on 04-04-2025 Emergency Department Summary Normal [facility] Eosinophil percentageOrdered By: ED PROVIDER on 04-04-2025 Eosinophils/100 WBC (Bld) 0.2 % 0-5 [facility] Erythrocyte distribution wid th ratioOrdered By: ED PROVIDER on 04-04-2025 Erythrocyte distribution width (RBC) [Ratio] 13.5 % 11.6-14.6 [facility] Erythrocyte distribution wid th standard deviationOrdered By: ED PROVIDER on 04-04-2025 Erythrocyte distribution width (RBC) [Ratio] 50.3 fl High 35.1-43.9 [facility] Glomerular filtration rate ( GFR) estimation/1.73 sq m using serum, plasma, or whole bOrdered By: Imani Knight on 04-04-2025 GFR/1.73 sq M.predicted among non-blacks MDRD (S/P/Bld) [Vol rate/Area] 113 mL/min/{1.73_m2} >60 [facility] Comment on above: mL/min/1.73m2 CKD-EP I Creatinine Equation (2020) Hematocrit Auto (Bld) [Volum e fraction]Ordered By: ED PROVIDER on 04-04-2025 Hematocrit (Bld) [Volume fraction] 40.3 % 37-47 [facility] Hemoglobin measurementOrdere d By: ED PROVIDER on 04-04-2025 Hemoglobin (Bld) [Mass/Vol] 14.3 g/dL 12.0-15.0 [facility] Immature granulocytes/100 WB C Auto (Bld)Ordered By: ED PROVIDER on 04-04-2025 Immature granulocytes/100 WBC (Bld) 0.300 % 0.0-0.9 [facility] Comment on above: IG% - Immature Granu locytes (promyelocytes, myelocytes and metamyelocytes) > 1% indicates that a LEFT SHIFT is Present. L499.0042on 04-04-2025 Trop T High Sen < 6 Normal <=14 [facility] Comment on above: Performed By: #### L 499.0042 ####[facility] [address] [place], [address] L499.0043on 04-04-2025 Trop T High Sen Normal <=14 [facility] Comment on above: Result Comment: CHUY ENT DISCHARGED Performed By: #### L 499.0043 ####[facility] [address] [place], [address] L501.4021on 04-04-2025 Trop T High Sen < 6 Normal <=14 [facility] Comment on above: Performed By: #### L 500.2500, L501.4021, L100.0100 ####[facility] [address] [place], [address] Laboratory - Chemistry and C hemistry - challengeOrdered By: Imani Knight on 05-07-2025 AST [Catalytic activity/Vol] 75 U/L High <32 [facility] Lipaseon 04-04-2025 Lipase [Catalytic activity/Vol] 26 U/L Normal 13-75 [facility] Comment on above: Result Comment: Lucie schultz note:LIPASE revised reference range effective 23.New Lipase methodology. Expected to produce lower valuesthan the previous assay method.NEW Reference Range: 13 - 75 U/L Performed By: #### L 500.3400, L501.5200, L501.2450 ####[facility] [address] [place], [address] Lipase measurementOrdered By : Imani Knight on 04-04-2025 Lipase [Catalytic activity/Vol] 26 U/L 13-75 [facility] Comment on above: Please note:LIPASE r evised reference range effective 23. New Lipase methodology. Expected to produce lower values than the previous assay method. NEW Reference Range: 13 - 75 U/L Liver Profileon 04-04-2025 Albumin [Mass/Vol] 4.1 g/dL Normal 3.5-5.0 [facility] Comment on above: Performed By: #### L 500.3400, L501.5200, L501.2450 ####[facility] [address] [place], [address] ALK PHOS 91 U/L Normal 35-104 [facility] Comment on above: Performed By: #### L 500.3400, L501.5200, L501.2450 ####[facility] [address] [place], [address] ALT [Catalytic activity/Vol] 44 U/L High <=34 [facility] Comment on above: Performed By: #### L 500.3400, L501.5200, L501.2450 ####[facility] [address] [place], [address] AST [Catalytic activity/Vol] 75 U/L High <=31 [facility] Comment on above: Performed By: #### L 500.3400, L501.5200, L501.2450 ####[facility] [address] [place], [address] Bilirubin [Mass/Vol] 1.26 mg/dL Normal 0.00-1.30 [facility] Comment on above: Performed By: #### L 500.3400, L501.5200, L501.2450 ####[facility] [address] [place], [address] Bilirubin.direct [Mass/Vol] 0.67 mg/dL High 0.00-0.30 [facility] Comment on above: Performed By: #### L 500.3400, L501.5200, L501.2450 ####[facility] [address] [place], [address] Globulin (S) [Mass/Vol] 3.3 g/dL Normal 2.2-4.2 [facility] Comment on above: Performed By: #### L 500.3400, L501.5200, L501.2450 ####[facility] [address] [place], [address] T PROT 7.3 g/dL Normal 5.9-8.4 [facility] Comment on above: Performed By: #### L 500.3400, L501.5200, L501.2450 ####[facility] [address] [place], [address] MCV (mean corpuscular volume ) determinationOrdered By: ED PROVIDER on 04-04-2025 MCV (RBC) [Entitic vol] 99.8 fL High 81-99 [facility] Magnesiumon 04-04-2025 Magnesium [Mass/Vol] 0.6 mg/dL Invalid Interpretation Code 1.5-2.2 [facility] Comment on above: Result Comment: Crit ical Result(s) Called at: 04/04/2025-12:09 by: Francesco Fairchild.??Results read back by same. Performed By: #### L 500.3400, L501.5200, L501.2450 ####[facility] [address] [place], [address] Magnesium measurement (mass/ volume)Ordered By: Imani Knight on 04-04-2025 Magnesium (Unsp spec) [Mass/Vol] 0.6 mg/dL Low 1.5-2.2 [facility] Comment on above: Critical Result(s) C alled at: 04/04/2025-12:09 by: Ru Null to Meredith Fairchild. Results read back by same. Mean corpuscular hemoglobin (MCH) determinationOrdered By: ED PROVIDER on 04-04-2025 MCH (RBC) [Entitic mass] 35.4 pg High 27.0-32.0 [facility] Mean corpuscular hemoglobin concentration (MCHC) determinationOrdered By: ED PROVIDER on 04-04-2025 MCHC (RBC) [Mass/Vol] 35.5 g/dL 32-36 [facility] Mean platelet volume determi nationOrdered By: ED PROVIDER on 04-04-2025 Platelet mean volume (Bld) [Entitic vol] 10.0 fL 6.2-12.0 [facility] Monocyte percentageOrdered B y: ED PROVIDER on 04-04-2025 Monocytes/100 WBC (Bld) 7.8 % 0-10 [facility] Neutrophil percentageOrdered By: ED PROVIDER on 04-04-2025 Neutrophils/100 WBC (Bld) 77.0 % High 47-70 [facility] Nucleated red blood cell per centageOrdered By: ED PROVIDER on 04-04-2025 Nucleated RBC/100 WBC (Bld) [Ratio] 0.2 % 0-5 [facility] Platelet countOrdered By: ED PROVIDER on 04-04-2025 Platelets (Bld) [#/Vol] 186 10*3/uL 150-450 [facility] Potassium measurement (mass/ volume)Ordered By: Imani Knight on 04-04-2025 Potassium (Unsp spec) [Mass/Vol] 2.9 mmol/L Low 3.3-5.1 [facility] RBC Auto (Bld) [#/Vol]Ordere d By: ED PROVIDER on 04-04-2025 RBC (Bld) [#/Vol] 4.04 10*6/uL Low 4.2-5.4 [facility] Serum creatinine measurement (mass/volume)Ordered By: Imani Knight on 04-04-2025 Creatinine [Mass/Vol] 0.55 mg/dL Low 0.70-1.20 [facility] Serum globulin measurementOr dered By: Imani Knight on 04-04-2025 Globulin (S) [Mass/Vol] 3.3 g/dL 2.2-4.2 [facility] Serum glucose measurement (m ass/volume)Ordered By: Imani Knight on 04-04-2025 Glucose [Mass/Vol] 131 mg/dL High 70-99 [facility] Serum or plasma alanine wilkerson otransferase (ALT) measurementOrdered By: Imani Knight on 04-04-2025 ALT [Catalytic activity/Vol] 44 U/L High <35 [facility] Serum or plasma albumin alphonso urement (mass/volume)Ordered By: Imani Knight on 04-04-2025 Albumin [Mass/Vol] 4.1 g/dL 3.5-5.0 [facility] Serum or plasma alkaline trinity sphatase measurementOrdered By: Imani Knight on 04-04-2025 ALP [Catalytic activity/Vol] 91 U/L 35-104 [facility] Serum or plasma calcium alphonso urement (mass/volume)Ordered By: Imani Knight on 04-04-2025 Calcium [Mass/Vol] 8.4 mg/dL 7.6-11.0 [facility] Serum or plasma urea nitroge n measurement (mass/volume)Ordered By: Imani Knight on 04-04-2025 Urea nitrogen [Mass/Vol] 5 mg/dL 4-19 [facility] Sodium levelOrdered By: Radha Knight on 04-04-2025 Sodium [Moles/Vol] 139 mmol/L 133-145 [facility] Total proteinOrdered By: Gwen Knight on 04-04-2025 Protein [Mass/Vol] 7.3 g/dL 5.9-8.4 [facility] Troponin T.cardiac [Mass/vol ume] in Serum or Plasma by High sensitivity methodOrdered By: Imani Knight on 04-04-2025 Troponin T.cardiac High sensitivity method [Mass/Vol] < 6 ng/L <14 [facility] Troponin T.cardiac High sensitivity method [Mass/Vol] < 6 ng/L <14 [facility] White blood cell (WBC) count Ordered By: ED PROVIDER on 04-04-2025 WBC (Bld) [#/Vol] 8.8 10*3/uL 4.4-11.0 [facility] 12 Lead EKGon 11-12-2024 12 Lead EKG Normal [facility] Basic Metabolic Profile (BMP )on 11-12-2024 BUN/CRE 23.8 RATIO High 10-20 [facility] Comment on above: Order Comment: 1Y Performed By: #### L 500.2500, L100.0100, L501.5425, L300.8000, L501.5200, L700.6800 ####[facility] [address] [place], [address] CA,Total 8.1 mg/dL Low 8.5-10.1 [facility] Comment on above: Order Comment: 1Y Performed By: #### L 500.2500, L100.0100, L501.5425, L300.8000, L501.5200, L700.6800 ####[facility] [address] [place], [address] Chloride [Moles/Vol] 99 mmol/L Normal 98-107 [facility] Comment on above: Order Comment: 1Y Performed By: #### L 500.2500, L100.0100, L501.5425, L300.8000, L501.5200, L700.6800 ####[facility] [address] [place], [address] CO2 [Moles/Vol] 27.0 mmol/L Normal 21.0-32.0 [facility] Comment on above: Order Comment: 1Y Performed By: #### L 500.2500, L100.0100, L501.5425, L300.8000, L501.5200, L700.6800 ####[facility] [address] [place], [address] Creatinine [Mass/Vol] 0.59 mg/dL Normal 0.55-1.02 [facility] Comment on above: Order Comment: 1Y Result Comment: The validity of the calculated GFR GFRAA in patients over70 years has not been determined. Clinical correlation isessential. Performed By: #### L 500.2500, L100.0100, L501.5425, L300.8000, L501.5200, L700.6800 ####[facility] [address] [place], [address] ECRCL 112.29 ml/min Normal [facility] Comment on above: Order Comment: 1Y Performed By: #### L 500.2500, L100.0100, L501.5425, L300.8000, L501.5200, L700.6800 ####[facility] [address] [place], [address] EST GFR - AA 140 mL/min Normal >60 [facility] Comment on above: Order Comment: 1Y Result Comment: Afri can Iraqi GFR Calc Performed By: #### L 500.2500, L100.0100, L501.5425, L300.8000, L501.5200, L700.6800 ####[facility] [address] [place], [address] GAP 9 Normal 5-15 [facility] Comment on above: Order Comment: 1Y Performed By: #### L 500.2500, L100.0100, L501.5425, L300.8000, L501.5200, L700.6800 ####[facility] [address] [place], [address] GFR/1.73 sq M.predicted among non-blacks MDRD (S/P/Bld) [Vol rate/Area] 116 mL/min/{1.73_m2} Normal >60 [facility] Comment on above: Order Comment: 1Y Result Comment: Non- GFR Calc Performed By: #### L 500.2500, L100.0100, L501.5425, L300.8000, L501.5200, L700.6800 ####[facility] [address] [place], [address] Glucose [Mass/Vol] 131 mg/dL High 74-106 [facility] Comment on above: Order Comment: 1Y Result Comment: Fast ing Glucose result greater than or equal to 126 mg/dLsuggests DIABETES MELLITUS per A.D.A. criteria. Performed By: #### L 500.2500, L100.0100, L501.5425, L300.8000, L501.5200, L700.6800 ####[facility] [address] [place], [address] Potassium [Moles/Vol] 3.7 mmol/L Normal 3.5-5.1 [facility] Comment on above: Order Comment: 1Y Performed By: #### L 500.2500, L100.0100, L501.5425, L300.8000, L501.5200, L700.6800 ####[facility] [address] [place], [address] Sodium [Moles/Vol] 135 mmol/L Low 136-145 [facility] Comment on above: Order Comment: 1Y Performed By: #### L 500.2500, L100.0100, L501.5425, L300.8000, L501.5200, L700.6800 ####[facility] [address] [place], [address] Urea nitrogen [Mass/Vol] 14 mg/dL Normal 7-18 [facility] Comment on above: Order Comment: 1Y Performed By: #### L 500.2500, L100.0100, L501.5425, L300.8000, L501.5200, L700.6800 ####[facility] [address] [place], [address] CBC W/Diff, Automatedon 12 Absolute Lymph 1.29 X10 3/uL Normal 0.83-4.51 [facility] Comment on above: Performed By: #### L 500.2500, L100.0100, L501.5425, L300.8000, L501.5200, L700.6800 ####[facility] [address] [place], [address] Absolute Neut 6.5 X10 3/uL Normal 2.0-7.7 [facility] Comment on above: Performed By: #### L 500.2500, L100.0100, L501.5425, L300.8000, L501.5200, L700.6800 ####[facility] [address] [place], [address] Basophils/100 WBC (Bld) 0.5 % Normal 0-1 [facility] Comment on above: Performed By: #### L 500.2500, L100.0100, L501.5425, L300.8000, L501.5200, L700.6800 ####[facility] [address] [place], [address] Eosinophils/100 WBC (Bld) 1.2 % Normal 0-5 [facility] Comment on above: Performed By: #### L 500.2500, L100.0100, L501.5425, L300.8000, L501.5200, L700.6800 ####[facility] [address] [place], [address] Erythrocyte distribution width (RBC) [Ratio] 13.1 % Normal 11.6-14.6 [facility] Comment on above: Performed By: #### L 500.2500, L100.0100, L501.5425, L300.8000, L501.5200, L700.6800 ####[facility] [address] [place], [address] Hematocrit (Bld) [Volume fraction] 37.7 % Normal 37-47 [facility] Comment on above: Performed By: #### L 500.2500, L100.0100, L501.5425, L300.8000, L501.5200, L700.6800 ####[facility] [address] [place], [address] Hemoglobin (Bld) [Mass/Vol] 12.9 g/dL Normal 12.0-15.0 [facility] Comment on above: Performed By: #### L 500.2500, L100.0100, L501.5425, L300.8000, L501.5200, L700.6800 ####[facility] [address] [place], [address] IG% 0.200 Normal 0.0-0.9 [facility] Comment on above: Result Comment: IG% - Immature Granulocytes (promyelocytes, myelocytes andmetamyelocytes) > 1% indicates that a LEFT SHIFT is Present. Performed By: #### L 500.2500, L100.0100, L501.5425, L300.8000, L501.5200, L700.6800 ####[facility] [address] [place], [address] Lymphocytes/100 WBC (Bld) 15.1 % Low 19-41 [facility] Comment on above: Performed By: #### L 500.2500, L100.0100, L501.5425, L300.8000, L501.5200, L700.6800 ####[facility] [address] [place], [address] MCH (RBC) [Entitic mass] 33.7 pg High 27.0-32.0 [facility] Comment on above: Performed By: #### L 500.2500, L100.0100, L501.5425, L300.8000, L501.5200, L700.6800 ####[facility] [address] [place], [address] MCHC (RBC) [Mass/Vol] 34.2 g/dL Normal 32-36 [facility] Comment on above: Performed By: #### L 500.2500, L100.0100, L501.5425, L300.8000, L501.5200, L700.6800 ####[facility] [address] [place], [address] MCV (RBC) [Entitic vol] 98.4 fL Normal 81-99 [facility] Comment on above: Performed By: #### L 500.2500, L100.0100, L501.5425, L300.8000, L501.5200, L700.6800 ####[facility] [address] [place], [address] Monocytes/100 WBC (Bld) 6.9 % Normal 0-10 [facility] Comment on above: Performed By: #### L 500.2500, L100.0100, L501.5425, L300.8000, L501.5200, L700.6800 ####[facility] [address] [place], [address] Neutrophils/100 WBC (Bld) 76.1 % High 47-70 [facility] Comment on above: Performed By: #### L 500.2500, L100.0100, L501.5425, L300.8000, L501.5200, L700.6800 ####[facility] [address] [place], [address] Nucleated RBC (Bld) [#/Vol] 0 10*3/uL Normal 0-5 [facility] Comment on above: Performed By: #### L 500.2500, L100.0100, L501.5425, L300.8000, L501.5200, L700.6800 ####[facility] [address] [place], [address] Platelet mean volume (Bld) [Entitic vol] 9.2 fL Normal 6.2-12.0 [facility] Comment on above: Performed By: #### L 500.2500, L100.0100, L501.5425, L300.8000, L501.5200, L700.6800 ####[facility] [address] [place], [address] Platelets (Bld) [#/Vol] 211 10*3/uL Normal 150-450 [facility] Comment on above: Performed By: #### L 500.2500, L100.0100, L501.5425, L300.8000, L501.5200, L700.6800 ####[facility] [address] [place], [address] RBC (Bld) [#/Vol] 3.83 10*6/uL Low 4.2-5.4 [facility] Comment on above: Performed By: #### L 500.2500, L100.0100, L501.5425, L300.8000, L501.5200, L700.6800 ####[facility] [address] [place], [address] RDW SD 46.6 fl High 35.1-43.9 [facility] Comment on above: Performed By: #### L 500.2500, L100.0100, L501.5425, L300.8000, L501.5200, L700.6800 ####[facility] [address] [place], [address] WBC (Bld) [#/Vol] 8.6 10*3/uL Normal 4.4-11.0 [facility] Comment on above: Performed By: #### L 500.2500, L100.0100, L501.5425, L300.8000, L501.5200, L700.6800 ####[facility] [address] [place], [place], [id number] CTA Chest W/WO Contraston CTA Chest W/WO Contrast Normal [facility] Chest 1 View (Portable)on Chest 1 View (Portable) Normal [facility] D-Dimer Quantitative (DVT/PE )on 11-12-2024 D-DIMER QUANT 0.74 FEU/ug/m Invalid Interpretation Code 0.27-0.49 [facility] Comment on above: Order Comment: CRITI FLORECITA VALUE CALLED TO uasjewrtvrznlgw16/15/24 1114 Priti Queen.RESULTS READ BACK BY same. Result Comment: D-Di clive ELEVATED (>0.49): Additional studies and clinicalassessments are indicated to conclude diagnosis of:Deep Vein Thrombosis (DVT) or Pulmonary Embolism (PE) Performed By: #### L 500.2500, L100.0100, L501.5425, L300.8000, L501.5200, L700.6800 ####[facility] [address] [place], [address] Emergency Department Summary on 11-12-2024 Emergency Department Summary Normal [facility] L501.4020on 11-12-2024 TROPONIN-I HS 6 pg/mL Normal 3.0-54.0 [facility] Comment on above: Result Comment: Plea Note: New Test Units and Gender Specific Reference Ranges. For more information see Policy Stat Procedure Wilsey High Sensitivity Troponin (TNIH) and attachments. Performed By: #### L 501.4020 ####[facility] [address] [place], [address] L501.5425on 11-12-2024 TROPONIN-I HS 6 pg/mL Normal 3.0-54.0 [facility] Comment on above: Order Comment: 1Y Result Comment: Lucie schultz Note: New Test Units and Gender Specific Reference Ranges. For more information see Policy Stat Procedure Wilsey High Sensitivity Troponin (TNIH) and attachments. Performed By: #### L 500.2500, L100.0100, L501.5425, L300.8000, L501.5200, L700.6800 ####[facility] [address] [place], [address] Magnesiumon 11-12-2024 Magnesium [Mass/Vol] 1.1 mg/dL Low 1.6-2.6 [facility] Comment on above: Order Comment: 1Y Performed By: #### L 500.2500, L100.0100, L501.5425, L300.8000, L501.5200, L700.6800 ####[facility] [address] [place], [place], [address] ,Serum,hCG Quali.on 11-12-2024 HCG, SERUM QUAL Negative Normal [facility] Comment on above: Performed By: #### L 500.2500, L100.0100, L501.5425, L300.8000, L501.5200, L700.6800 ####[facility] [address] [place], [place], [address] Orthopedic Visit Reporton Orthopedic Visit Report Normal [facility] Spine Lumbar (Routine)on Spine Lumbar (Routine) Normal [facility] L/S Spine Min 4 Viewson 08-01 L/S Spine Min 4 Views Normal [facility] Orthopedic Visit Reporton Orthopedic Visit Report Normal [facility] Cardiology Visit Reporton Cardiology Visit Report Normal [facility] Comprehensive Metabolic Prof ilon 08-22-2024 Albumin [Mass/Vol] 3.6 g/dL Normal 3.2-5.0 [facility] Comment on above: Order Comment: Comme nts: okay to do nonfasting Performed By: #### L 500.4100, L500.4050 ####[facility] [address] [place], [address] Albumin/Globulin [Mass ratio] 0.9 {ratio} Normal 0.9-2.4 [facility] Comment on above: Order Comment: Comme nts: okay to do nonfasting Performed By: #### L 500.4100, L500.4050 ####[facility] [address] [place], [address] ALK P 91 U/L Normal 45-117 [facility] Comment on above: Order Comment: Comme nts: okay to do nonfasting Performed By: #### L 500.4100, L500.4050 ####[facility] [address] [place], [address] ALT [Catalytic activity/Vol] 39 U/L Normal 13-56 [facility] Comment on above: Order Comment: Comme nts: okay to do nonfasting Performed By: #### L 500.4100, L500.4050 ####[facility] [address] [place], [address] AST [Catalytic activity/Vol] 41 U/L High 15-37 [facility] Comment on above: Order Comment: Comme nts: okay to do nonfasting Performed By: #### L 500.4100, L500.4050 ####[facility] [address] [place], [address] Bilirubin [Mass/Vol] 0.50 mg/dL Normal 0.20-1.00 [facility] Comment on above: Order Comment: Comme nts: okay to do nonfasting Result Comment: For patients on eltrombopag therapy, use of Dimension Wilsey TBIL is not recommended. Performed By: #### L 500.4100, L500.4050 ####[facility] [address] [place], [address] BUN/CRE 11.9 RATIO Normal 10-20 [facility] Comment on above: Order Comment: Comme nts: okay to do nonfasting Performed By: #### L 500.4100, L500.4050 ####[facility] [address] [place], [address] CA,Total 9.6 mg/dL Normal 8.5-10.1 [facility] Comment on above: Order Comment: Comme nts: okay to do nonfasting Performed By: #### L 500.4100, L500.4050 ####[facility] [address] [place], [address] Chloride [Moles/Vol] 104 mmol/L Normal 98-107 [facility] Comment on above: Order Comment: Comme nts: okay to do nonfasting Performed By: #### L 500.4100, L500.4050 ####[facility] [address] [place], [address] CO2 [Moles/Vol] 27.0 mmol/L Normal 21.0-32.0 [facility] Comment on above: Order Comment: Comme nts: okay to do nonfasting Performed By: #### L 500.4100, L500.4050 ####[facility] [address] [place], [address] Creatinine [Mass/Vol] 0.67 mg/dL Normal 0.55-1.02 [facility] Comment on above: Order Comment: Comme nts: okay to do nonfasting Result Comment: The validity of the calculated GFR GFRAA in patients over70 years has not been determined. Clinical correlation isessential. Performed By: #### L 500.4100, L500.4050 ####[facility] [address] [place], [address] EST GFR - AA 121 mL/min Normal >60 [facility] Comment on above: Order Comment: Comme nts: okay to do nonfasting Result Comment: Afri can Iraqi GFR Calc Performed By: #### L 500.4100, L500.4050 ####[facility] [address] [place], [address] GAP 6 Normal 5-15 [facility] Comment on above: Order Comment: Comme nts: okay to do nonfasting Performed By: #### L 500.4100, L500.4050 ####[facility] [address] [place], [address] GFR/1.73 sq M.predicted among non-blacks MDRD (S/P/Bld) [Vol rate/Area] 100 mL/min/{1.73_m2} Normal >60 [facility] Comment on above: Order Comment: Comme nts: okay to do nonfasting Result Comment: Non- GFR Calc Performed By: #### L 500.4100, L500.4050 ####[facility] [address] [place], [address] Globulin (S) [Mass/Vol] 4.0 g/dL Normal 2.2-4.2 [facility] Comment on above: Order Comment: Comme nts: okay to do nonfasting Performed By: #### L 500.4100, L500.4050 ####[facility] [address] [place], [address] Glucose [Mass/Vol] 130 mg/dL High 74-106 [facility] Comment on above: Order Comment: Comme nts: okay to do nonfasting Result Comment: Fast ing Glucose result greater than or equal to 126 mg/dLsuggests DIABETES MELLITUS per A.D.A. criteria. Performed By: #### L 500.4100, L500.4050 ####[facility] [address] [place], [address] Potassium [Moles/Vol] 4.2 mmol/L Normal 3.5-5.1 [facility] Comment on above: Order Comment: Comme nts: okay to do nonfasting Performed By: #### L 500.4100, L500.4050 ####[facility] [address] [place], [address] Sodium [Moles/Vol] 137 mmol/L Normal 136-145 [facility] Comment on above: Order Comment: Comme nts: okay to do nonfasting Performed By: #### L 500.4100, L500.4050 ####[facility] [address] [place], [address] T PROT 7.6 g/dL Normal 6.4-8.2 [facility] Comment on above: Order Comment: Comme nts: okay to do nonfasting Performed By: #### L 500.4100, L500.4050 ####[facility] [address] [place], [address] Urea nitrogen [Mass/Vol] 8 mg/dL Normal 7-18 [facility] Comment on above: Order Comment: Comme nts: okay to do nonfasting Performed By: #### L 500.4100, L500.4050 ####[facility] [address] [place], [address] Lipid Profileon 08-22-2024 Cholesterol [Mass/Vol] 124 mg/dL Normal 200 [facility] Comment on above: Order Comment: Comme nts: okay to do nonfasting Result Comment: <200 mg/dL Desirable 200-240 mg/dL Borderline >240 mg/dL High Risk Performed By: #### L 500.4100, L500.4050 ####[facility] [address] [place], [address] Cholesterol in HDL [Mass/Vol] 70 mg/dL Normal [facility] Comment on above: Order Comment: Comme nts: okay to do nonfasting Result Comment: The drugs N-Acetylcysteine and Metamizole may falselydepress this assay. Reference Range HDL <40 mg/dL Low HDL Cholesterol HDL >or= 60 mg/dL High HDL Cholesterol Performed By: #### L 500.4100, L500.4050 ####[facility] [address] [place], [address] Cholesterol in LDL [Mass/Vol] 13 mg/dL Normal 0-130 [facility] Comment on above: Order Comment: Comme nts: okay to do nonfasting Performed By: #### L 500.4100, L500.4050 ####[facility] [address] [place], [address] Cholesterol in VLDL [Mass/Vol] 41 mg/dL High 5-40 [facility] Comment on above: Order Comment: Comme nts: okay to do nonfasting Performed By: #### L 500.4100, L500.4050 ####[facility] [address] [place], [address] Triglyceride [Mass/Vol] 204 mg/dL High [facility] Comment on above: Order Comment: Comme nts: okay to do nonfasting Result Comment: The drugs N-Acetylcysteine and Metamizole may falselydepress this assay.Serum Triglycerides Reference Interval Normal <150 mg/dL Borderline high 150 - 199 mg/dL High 200 - 499 mg/dL Very High > or = 500 mg/dL Performed By: #### L 500.4100, L500.4050 ####[facility] [address] [place], [address] Inital Evaluation (1) - PTon 08-16-2024 Inital Evaluation (1) - PT Normal [facility] Abdomen/Pelvis without Conto n 07-11-2024 Abdomen/Pelvis without Cont Normal [facility] CBC W/Diff, Automatedon 06-29 Absolute Neut Normal 2.0-7.7 [facility] Comment on above: Result Comment: DUPL ICATE ORDER, SEE OTHER FOR RESULTS Performed By: #### L 100.0100, L501.2450 ####[facility] [address] [place], [address] HCT Normal 37-47 [facility] Comment on above: Result Comment: DUPL ICATE ORDER, SEE OTHER FOR RESULTS Performed By: #### L 100.0100, L501.2450 ####[facility] [address] [place], [address] HGB Normal 12.0-15.0 [facility] Comment on above: Result Comment: DUPL ICATE ORDER, SEE OTHER FOR RESULTS Performed By: #### L 100.0100, L501.2450 ####[facility] [address] [place], [address] MCH Normal 27.0-32.0 [facility] Comment on above: Result Comment: DUPL ICATE ORDER, SEE OTHER FOR RESULTS Performed By: #### L 100.0100, L501.2450 ####[facility] [address] [place], [address] MCHC Normal 32-36 [facility] Comment on above: Result Comment: DUPL ICATE ORDER, SEE OTHER FOR RESULTS Performed By: #### L 100.0100, L501.2450 ####[facility] [address] [place], [address] MCV Normal 81-99 [facility] Comment on above: Result Comment: DUPL ICATE ORDER, SEE OTHER FOR RESULTS Performed By: #### L 100.0100, L501.2450 ####[facility] [address] [place], [address] NEUT% Normal 47-70 [facility] Comment on above: Result Comment: DUPL ICATE ORDER, SEE OTHER FOR RESULTS Performed By: #### L 100.0100, L501.2450 ####[facility] [address] [place], [address] PLT Normal 150-450 [facility] Comment on above: Result Comment: DUPL ICATE ORDER, SEE OTHER FOR RESULTS Performed By: #### L 100.0100, L501.2450 ####[facility] [address] [place], [address] RBC Normal 4.2-5.4 [facility] Comment on above: Result Comment: DUPL ICATE ORDER, SEE OTHER FOR RESULTS Performed By: #### L 100.0100, L501.2450 ####[facility] [address] [place], [address] RDW CV Normal 11.6-14.6 [facility] Comment on above: Result Comment: DUPL ICATE ORDER, SEE OTHER FOR RESULTS Performed By: #### L 100.0100, L501.2450 ####[facility] [address] [place], [address] RDW SD Normal 35.1-43.9 [facility] Comment on above: Result Comment: DUPL ICATE ORDER, SEE OTHER FOR RESULTS Performed By: #### L 100.0100, L501.2450 ####[facility] [address] [place], [address] WBC Normal 4.4-11.0 [facility] Comment on above: Result Comment: DUPL ICATE ORDER, SEE OTHER FOR RESULTS Performed By: #### L 100.0100, L501.2450 ####[facility] [address] [place], [address] Absolute Lymph 1.73 X10 3/uL Normal 0.83-4.51 [facility] Comment on above: Performed By: #### L 700.6800, L100.0100, L500.4050 ####[facility] [address] [place], [address] Absolute Neut 4.5 X10 3/uL Normal 2.0-7.7 [facility] Comment on above: Performed By: #### L 700.6800, L100.0100, L500.4050 ####[facility] [address] [place], [address] Basophils/100 WBC (Bld) 0.7 % Normal 0-1 [facility] Comment on above: Performed By: #### L 700.6800, L100.0100, L500.4050 ####[facility] [address] [place], [address] Eosinophils/100 WBC (Bld) 2.4 % Normal 0-5 [facility] Comment on above: Performed By: #### L 700.6800, L100.0100, L500.4050 ####[facility] [address] [place], [address] Erythrocyte distribution width (RBC) [Ratio] 12.7 % Normal 11.6-14.6 [facility] Comment on above: Performed By: #### L 700.6800, L100.0100, L500.4050 ####[facility] [address] [place], [address] Hematocrit (Bld) [Volume fraction] 41.9 % Normal 37-47 [facility] Comment on above: Performed By: #### L 700.6800, L100.0100, L500.4050 ####[facility] [address] [place], [address] Hemoglobin (Bld) [Mass/Vol] 14.0 g/dL Normal 12.0-15.0 [facility] Comment on above: Performed By: #### L 700.6800, L100.0100, L500.4050 ####[facility] [address] [place], [address] IG% 0.400 Normal 0.0-0.9 [facility] Comment on above: Result Comment: IG% - Immature Granulocytes (promyelocytes, myelocytes andmetamyelocytes) > 1% indicates that a LEFT SHIFT is Present. Performed By: #### L 700.6800, L100.0100, L500.4050 ####[facility] [address] [place], [address] Lymphocytes/100 WBC (Bld) 24.2 % Normal 19-41 [facility] Comment on above: Performed By: #### L 700.6800, L100.0100, L500.4050 ####[facility] [address] [place], [address] MCH (RBC) [Entitic mass] 31.6 pg Normal 27.0-32.0 [facility] Comment on above: Performed By: #### L 700.6800, L100.0100, L500.4050 ####[facility] [address] [place], [address] MCHC (RBC) [Mass/Vol] 33.4 g/dL Normal 32-36 [facility] Comment on above: Performed By: #### L 700.6800, L100.0100, L500.4050 ####[facility] [address] [place], [address] MCV (RBC) [Entitic vol] 94.6 fL Normal 81-99 [facility] Comment on above: Performed By: #### L 700.6800, L100.0100, L500.4050 ####[facility] [address] [place], [address] Monocytes/100 WBC (Bld) 9.4 % Normal 0-10 [facility] Comment on above: Performed By: #### L 700.6800, L100.0100, L500.4050 ####[facility] [address] [place], [address] Neutrophils/100 WBC (Bld) 62.9 % Normal 47-70 [facility] Comment on above: Performed By: #### L 700.6800, L100.0100, L500.4050 ####[facility] [address] [place], [address] Nucleated RBC (Bld) [#/Vol] 0.3 10*3/uL Normal 0-5 [facility] Comment on above: Performed By: #### L 700.6800, L100.0100, L500.4050 ####[facility] [address] [place], [address] Platelet mean volume (Bld) [Entitic vol] 9.0 fL Normal 6.2-12.0 [facility] Comment on above: Performed By: #### L 700.6800, L100.0100, L500.4050 ####[facility] [address] [place], [address] Platelets (Bld) [#/Vol] 243 10*3/uL Normal 150-450 [facility] Comment on above: Performed By: #### L 700.6800, L100.0100, L500.4050 ####[facility] [address] [place], [address] RBC (Bld) [#/Vol] 4.43 10*6/uL Normal 4.2-5.4 [facility] Comment on above: Performed By: #### L 700.6800, L100.0100, L500.4050 ####[facility] [address] [place], [address] RDW SD 43.8 fl Normal 35.1-43.9 [facility] Comment on above: Performed By: #### L 700.6800, L100.0100, L500.4050 ####[facility] [address] [place], [address] WBC (Bld) [#/Vol] 7.2 10*3/uL Normal 4.4-11.0 [facility] Comment on above: Performed By: #### L 700.6800, L100.0100, L500.4050 ####[facility] [address] [place], [address] Comprehensive Metabolic Prof ilon 07-11-2024 Albumin [Mass/Vol] 3.7 g/dL Normal 3.2-5.0 [facility] Comment on above: Performed By: #### L 700.6800, L100.0100, L500.4050 ####[facility] [address] [place], [address] Albumin/Globulin [Mass ratio] 0.9 {ratio} Normal 0.9-2.4 [facility] Comment on above: Performed By: #### L 700.6800, L100.0100, L500.4050 ####[facility] [address] [place], [address] ALK P 94 U/L Normal 45-117 [facility] Comment on above: Performed By: #### L 700.6800, L100.0100, L500.4050 ####[facility] [address] [place], [address] ALT [Catalytic activity/Vol] 58 U/L High 13-56 [facility] Comment on above: Performed By: #### L 700.6800, L100.0100, L500.4050 ####[facility] [address] [place], [address] AST [Catalytic activity/Vol] 35 U/L Normal 15-37 [facility] Comment on above: Performed By: #### L 700.6800, L100.0100, L500.4050 ####[facility] [address] [place], [address] Bilirubin [Mass/Vol] 0.40 mg/dL Normal 0.20-1.00 [facility] Comment on above: Result Comment: For patients on eltrombopag therapy, use of Dimension Wilsey TBIL is not recommended. Performed By: #### L 700.6800, L100.0100, L500.4050 ####[facility] [address] [place], [address] BUN/CRE 16.3 RATIO Normal 10-20 [facility] Comment on above: Performed By: #### L 700.6800, L100.0100, L500.4050 ####[facility] [address] [place], [address] CA,Total 8.5 mg/dL Normal 8.5-10.1 [facility] Comment on above: Performed By: #### L 700.6800, L100.0100, L500.4050 ####[facility] [address] [place], [address] Chloride [Moles/Vol] 101 mmol/L Normal 98-107 [facility] Comment on above: Performed By: #### L 700.6800, L100.0100, L500.4050 ####[facility] [address] [place], [address] CO2 [Moles/Vol] 26.0 mmol/L Normal 21.0-32.0 [facility] Comment on above: Performed By: #### L 700.6800, L100.0100, L500.4050 ####[facility] [address] [place], [address] Creatinine [Mass/Vol] 0.67 mg/dL Normal 0.55-1.02 [facility] Comment on above: Result Comment: The validity of the calculated GFR GFRAA in patients over70 years has not been determined. Clinical correlation isessential. Performed By: #### L 700.6800, L100.0100, L500.4050 ####[facility] [address] [place], [address] EST GFR - AA 120 mL/min Normal >60 [facility] Comment on above: Result Comment: Afri can Iraqi GFR Calc Performed By: #### L 700.6800, L100.0100, L500.4050 ####[facility] [address] [place], [address] GAP 9 Normal 5-15 [facility] Comment on above: Performed By: #### L 700.6800, L100.0100, L500.4050 ####[facility] [address] [place], [address] GFR/1.73 sq M.predicted among non-blacks MDRD (S/P/Bld) [Vol rate/Area] 100 mL/min/{1.73_m2} Normal >60 [facility] Comment on above: Result Comment: Non- GFR Calc Performed By: #### L 700.6800, L100.0100, L500.4050 ####[facility] [address] [place], [address] Globulin (S) [Mass/Vol] 4.0 g/dL Normal 2.2-4.2 [facility] Comment on above: Performed By: #### L 700.6800, L100.0100, L500.4050 ####[facility] [address] [place], [address] Glucose [Mass/Vol] 175 mg/dL High 74-106 [facility] Comment on above: Result Comment: Fast ing Glucose result greater than or equal to 126 mg/dLsuggests DIABETES MELLITUS per A.D.A. criteria. Performed By: #### L 700.6800, L100.0100, L500.4050 ####[facility] [address] [place], [address] Potassium [Moles/Vol] 3.8 mmol/L Normal 3.5-5.1 [facility] Comment on above: Performed By: #### L 700.6800, L100.0100, L500.4050 ####[facility] [address] [place], [address] Sodium [Moles/Vol] 136 mmol/L Normal 136-145 [facility] Comment on above: Performed By: #### L 700.6800, L100.0100, L500.4050 ####[facility] [address] [place], [address] T PROT 7.7 g/dL Normal 6.4-8.2 [facility] Comment on above: Performed By: #### L 700.6800, L100.0100, [id number] ####[facility] [address] [place], [address] Urea nitrogen [Mass/Vol] 11 mg/dL Normal 7-18 [facility] Comment on above: Performed By: #### L 700.6800, L100.0100, [id number] ####[facility] [address] [place], [address] Emergency Department Summary on 07-11-2024 Emergency Department Summary Normal [facility] Lipaseon 07-11-2024 Lipase [Catalytic activity/Vol] 32 U/L Normal 13-75 [facility] Comment on above: Result Comment: Lucie schultz note:LIPASE revised reference range effective 23.New Lipase methodology. Expected to produce lower valuesthan the previous assay method.NEW Reference Range: 13 - 75 U/L Performed By: #### L 100.0100, L501.2450 ####[facility] [address] [place], [address] ,Serum,hCG Quali.on 07-11-2024 HCG, SERUM QUAL Negative Normal [facility] Comment on above: Performed By: #### L 700.6800, L100.0100, [id number] ####[facility] [address] [place], [address] Urinalysis, Completeon 07-11 Mucus Ql (Urine sed) RARE Normal [facility] Comment on above: Order Comment: [place] CTOR TO SPECIFY Performed By: #### L 400.0001 ####[facility] [address] [place], [address] BACTERIA 1+ /hpf Normal None Seen [facility] Comment on above: Order Comment: [place] CT[place] TO SPECIFY Performed By: #### L 400.0001 ####[facility] [address] [place], [address] EPI,SQUAMOUS 5-10 SEEN Normal 5-10 [facility] Comment on above: Order Comment: [place] CTOR TO SPECIFY Performed By: #### L 400.0001 ####[facility] [address] [place], [address] WBC 5-10 SEEN Normal 0-5 [facility] Comment on above: Order Comment: [facility] CTOR TO SPECIFY Performed By: #### L 400.0001 ####[facility] [address] [place], [address] RBC 0 SEEN Normal 0-5 [facility] Comment on above: Order Comment: [facility] CTOR TO SPECIFY Performed By: #### L 400.0001 ####[facility] [address] [place], [address] CNOVon 04-22-2024 [facility] JOSEPH RINCON ([id number]) 1975 F NFR Date Time Provider Department 04/22/24 1:30 PM ARETHA SCHOFIELD [facility] During your visit today, we recorded the following information about you: Temperature Pulse Respiration Blood pressure 97.4 degrees 115/minute 20/minute 120/84 Weight 75.8 kg Aretha Schofield APRN.CNP 04/22/2024 2:02 PM Signed Subjective Sinus Problem [...] since qu (more content not included)... Normal [facility] Basophil percentageOrdered B y: Milana Garcia on 03-21-2024 Bilirubin [Mass/Vol] 0.60 mg/dL 0.20-1.00 [facility] Comment on above: For patients on eltr ombopag therapy, use of Dimension Wilsey TBIL is not recommended. Chloride [Moles/Vol] 105 mmol/L 98-107 [facility] Glucose [Mass/Vol] 121 mg/dL 74-106 [facility] Comment on above: Fasting Glucose resu lt from 100 to 125 mg/dL suggests IMPAIRED HOMEOSTASIS per A.D.A. criteria. Potassium [Moles/Vol] 4.0 mmol/L 3.5-5.1 [facility] Protein [Mass/Vol] 7.6 g/dL 6.4-8.2 [facility] Sodium [Moles/Vol] 136 mmol/L 136-145 [facility] Laboratory - Chemistry and C hemistry - challengeOrdered By: Milana Garcia on 03-21-2024 Albumin/Globulin [Mass ratio] 0.9 {ratio} 0.9-2.4 [facility] ALP [Catalytic activity/Vol] 67 U/L 45-117 [facility] ALT [Catalytic activity/Vol] 27 U/L 13-56 [facility] CO2 [Moles/Vol] 24.0 mmol/L 21.0-32.0 [facility] Globulin (S) [Mass/Vol] 4.0 g/dL 2.2-4.2 [facility] Magnesium [Mass/Vol] 1.7 mg/dL 1.6-2.6 [facility] Sodium (U) [Moles/Vol] 104 mmol/L Not Establ. [facility] Urea nitrogen/Creatinine [Mass ratio] 21.6 mg/mg 10-20 [facility] No Panel InformationOrdered By: Milana Garcia on 03-21-2024 Estimated GFR (MDRD) Amer 108 mL/min >60 [facility] Comment on above: GFR Calc Estimated GFR (MDRD) Non-Af Amer 89 mL/min >60 [facility] Comment on above: Non- GFR Calc Serum or plasma calcium alphonso urement (mass/volume)Ordered By: Milana Garcia on 03-21-2024 Calcium [Mass/Vol] 8.8 mg/dL 8.5-10.1 [facility] Serum or plasma creatinine m easurement (mass/volume)Ordered By: Milana Garcia on 03-21-2024 Creatinine [Mass/Vol] 0.74 mg/dL 0.55-1.02 [facility] Comment on above: The validity of the calculated GFR & GFRAA in patients over 70 years has not been determined. Clinical correlation is essential. Serum or plasma thyroid stim ulating hormone (TSH) measurement (units/volume)Ordered By: Milana Garcia on 03-21-2024 TSH Qn 1.06 uIU/mL 0.358-3.74 [facility] Serum or plasma urea nitroge n measurement (mass/volume)Ordered By: Milana Garcia on 03-21-2024 Urea nitrogen [Mass/Vol] 16 mg/dL 7-18 [facility] Thin prep Papanicolaou smear with manual screeningOrdered By: Milana Garcia on 03-21-2024 Thin prep Papanicolaou smear with manual screening 3.6 g/dL 3.2-5.0 [facility] Thin prep Papanicolaou smear with manual screening 22 U/L 15-37 [facility] Thin prep Papanicolaou smear with manual screening 7 5-15 [facility] Thin prep Papanicolaou smear with manual screening 286 mOsm/KG 275-295 [facility] Urine osmolality measurement Ordered By: Milana Garcia on 03-21-2024 Osmolality (U) [Osmolality] 535 mOsm/KG >50 [facility] Comment on above: Normal Urine Referen ce Ranges Random: 50 - 1200 mOsm/kg H20 depending on fluid intake Random: >850 mOsm/kg after 12 hour fluid restriction 24 hour: ~300 - 900 mOsm/kg H2O Absolute lymphocyte countOrd ered By: Caprice Rosalino on 01-24-2024 Lymphocytes Auto (Unsp spec) [#/Vol] 3.36 10*3/uL 0.83-4.51 [facility] Automated lymphocyte count a s percentage of total leukocytesOrdered By: Caprice Jerry on 01-24-2024 Lymphocytes/100 WBC Auto (Unsp spec) 33.3 % 19-41 [facility] Basophil percentageOrdered B y: Caprice Jerry on 01-24-2024 Basophils/100 WBC (Bld) 0.8 % 0-1 [facility] Chloride [Moles/Vol] 104 mmol/L 98-107 [facility] Eosinophils/100 WBC (Bld) 1.6 % 0-5 [facility] Glucose [Mass/Vol] 110 mg/dL 74-106 [facility] Comment on above: Fasting Glucose resu lt from 100 to 125 mg/dL suggests IMPAIRED HOMEOSTASIS per A.D.A. criteria. Hemoglobin (Bld) [Mass/Vol] 12.5 g/dL 12.0-15.0 [facility] Monocytes/100 WBC (Bld) 9.1 % 0-10 [facility] Neutrophils (Bld) [#/Vol] 5.5 10*3/uL 2.0-7.7 [facility] Neutrophils/100 WBC (Bld) 54.8 % 47-70 [facility] Potassium [Moles/Vol] 3.9 mmol/L 3.5-5.1 [facility] Sodium [Moles/Vol] 138 mmol/L 136-145 [facility] WBC (Bld) [#/Vol] 10.1 10*3/uL 4.4-11.0 [facility] Basophil percentageOrdered B y: Ainsley Bean on 01-24-2024 Bilirubin [Mass/Vol] 0.30 mg/dL 0.20-1.00 [facility] Comment on above: For patients on eltr ombopag therapy, use of Dimension Wilsey TBIL is not recommended. Protein [Mass/Vol] 7.1 g/dL 6.4-8.2 [facility] Determination of erythrocyte mean corpuscular volume (MCV)Ordered By: Caprice Jerry on 01-24-2024 MCV (RBC) [Entitic vol] 95.9 fL 81-99 [facility] Direct bilirubinOrdered By: Ainsley Bean on 01-24-2024 Bilirubin.direct [Mass/Vol] 0.12 mg/dL 0.00-0.30 [facility] Erythrocyte distribution wid th ratioOrdered By: Capriceyen Jerry on 01-24-2024 Erythrocyte distribution width (RBC) [Ratio] 11.9 % 11.6-14.6 [facility] Erythrocyte distribution wid th standard deviationOrdered By: Capriceyen Jerry on 01-24-2024 Erythrocyte distribution width (RBC) [Entitic vol] 41.5 fL 35.1-43.9 [facility] Hematocrit Auto (Bld) [Volum e fraction]Ordered By: Caprice Jerry on 01-24-2024 Hematocrit (Bld) [Volume fraction] 37.4 % 37-47 [facility] Immature granulocytes/100 WB C Auto (Bld)Ordered By: Caprice Jerry on 01-24-2024 Immature granulocytes/100 WBC (Bld) 0.400 % 0.0-0.9 [facility] Comment on above: IG% - Immature Granu locytes (promyelocytes, myelocytes and metamyelocytes) > 1% indicates that a LEFT SHIFT is Present. Laboratory - Chemistry and C hemistry - challengeOrdered By: Ainsley Bean on 01-24-2024 ALP [Catalytic activity/Vol] 69 U/L 45-117 [facility] ALT [Catalytic activity/Vol] 23 U/L 13-56 [facility] Globulin (S) [Mass/Vol] 3.7 g/dL 2.2-4.2 [facility] Lipase [Catalytic activity/Vol] 88 U/L 13-75 [facility] Comment on above: Please note:LIPASE r evised reference range effective 23. New Lipase methodology. Expected to produce lower values than the previous assay method. NEW Reference Range: - 75 U/L Laboratory - Chemistry and C hemistry - challengeOrdered By: Caprice Jerry on 01-24-2024 CO2 [Moles/Vol] 29.0 mmol/L 21.0-32.0 [facility] Urea nitrogen/Creatinine [Mass ratio] 21.7 mg/mg 10-20 [facility] Laboratory - Hematology and Cell countsOrdered By: Caprice Jerry on 01-24-2024 MCH (RBC) [Entitic mass] 32.1 pg 27.0-32.0 [facility] MCHC (RBC) [Mass/Vol] 33.4 g/dL 32-36 [facility] Nucleated RBC/100 WBC (Bld) [Ratio] 0 % 0-5 [facility] Platelet mean volume (Bld) [Entitic vol] 9.6 fL 6.2-12.0 [facility] Platelets (Bld) [#/Vol] 264 10*3/uL 150-450 [facility] No Panel InformationOrdered By: Ainsley Bean on 01-24-2024 Troponin I High Sensitivity 4 pg/mL 3.0-54.0 [facility] Comment on above: Please Note: New Miri t Units and Gender Specific Reference Ranges. For more information see Policy Stat Procedure Wilsey High Sensitivity Troponin (TNIH) and attachments. No Panel InformationOrdered By: Caprice Jerry on 01-24-2024 Estimated GFR (MDRD) Amer 108 mL/min >60 [facility] Comment on above: GFR Calc Estimated GFR (MDRD) Non-Af Amer 90 mL/min >60 [facility] Comment on above: Non- GFR Calc RBC Auto (Bld) [#/Vol]Ordere d By: Caprice Jerry on 01-24-2024 RBC (Bld) [#/Vol] 3.90 10*6/uL 4.2-5.4 [facility] [place], [place] Serum or plasma calcium alphonso urement (mass/volume)Ordered By: Caprice Jerry on 01-24-2024 Calcium [Mass/Vol] 10.1 mg/dL 8.5-10.1 [facility] r [facility] [place], [place] Serum or plasma creatinine m easurement (mass/volume)Ordered By: Caprice Jerry on 01-24-2024 Creatinine [Mass/Vol] 0.74 mg/dL 0.55-1.02 [facility] Comment on above: The validity of the calculated GFR & GFRAA in patients over 70 years has not been determined. Clinical correlation is essential. Serum or plasma urea nitroge n measurement (mass/volume)Ordered By: Caprice Jerry on 01-24-2024 Urea nitrogen [Mass/Vol] 16 mg/dL 7-18 [facility] Thin prep Papanicolaou smear with manual screeningOrdered By: Ainsley Bean on 01-24-2024 Thin prep Papanicolaou smear with manual screening 3.4 g/dL 3.2-5.0 [facility] Thin prep Papanicolaou smear with manual screening 25 U/L 15-37 [facility] Comment on above: Slight Hemolysis, Re sult may be falsely increased. Thin prep Papanicolaou smear with manual screeningOrdered By: Caprice Jerry on 01-24-2024 Thin prep Papanicolaou smear with manual screening 5 5-15 [facility] Absolute lymphocyte countOrd ered By: Caprice Jerry on 10-10-2023 Lymphocytes Auto (Unsp spec) [#/Vol] 0.98 10*3/uL 0.83-4.51 [facility] Basophil percentageOrdered B y: Caprice Jerry on 10-10-2023 Basophils/100 WBC (Bld) 0.3 % 0-1 [facility] Bilirubin [Mass/Vol] 1.00 mg/dL 0.20-1.00 [facility] Comment on above: For patients on eltr ombopag therapy, use of Dimension Wilsey TBIL is not recommended. Chloride [Moles/Vol] 103 mmol/L 98-107 [facility] Eosinophils/100 WBC (Bld) 0.2 % 0-5 [facility] Glucose [Mass/Vol] 175 mg/dL 74-106 [facility] Comment on above: Fasting Glucose resu lt greater than or equal to 126 mg/dL suggests DIABETES MELLITUS per A.D.A. criteria. Neutrophils (Bld) [#/Vol] 7.6 10*3/uL 2.0-7.7 [facility] Neutrophils/100 WBC (Bld) 81.6 % 47-70 [facility] Potassium [Moles/Vol] 3.9 mmol/L 3.5-5.1 [facility] Protein [Mass/Vol] 7.3 g/dL 6.4-8.2 [facility] Sodium [Moles/Vol] 133 mmol/L 136-145 [facility] WBC (Bld) [#/Vol] 9.3 10*3/uL 4.4-11.0 [facility] Blood erythrocytes count (nu mber/volume)Ordered By: Caprice Jerry on 10-10-2023 RBC (Bld) [#/Vol] 4.14 10*6/uL 4.2-5.4 [facility] Blood hemoglobin measurement (mass/volume)Ordered By: Caprice Jerry on 10-10-2023 Hemoglobin (Bld) [Mass/Vol] 13.5 g/dL 12.0-15.0 [facility] Blood lymphocytes/100 leukoc ytesOrdered By: Caprice Jerry on 10-10-2023 Lymphocytes/100 WBC (Bld) 10.6 % 19-41 [facility] Blood monocytes/100 leukocyt esOrdered By: Caprice Jerry on 10-10-2023 Monocytes/100 WBC (Bld) 7.0 % 0-10 [facility] Blood platelet mean volumeOr dered By: Caprice Jerry on 10-10-2023 Platelet mean volume (Bld) [Entitic vol] 9.7 fL 6.2-12.0 [facility] Determination of erythrocyte mean corpuscular volume (MCV)Ordered By: Caprice Jerry on 10-10-2023 MCV (RBC) [Entitic vol] 98.3 fL 81-99 [facility] Direct bilirubinOrdered By: Caprice Jerry on 10-10-2023 Bilirubin.direct [Mass/Vol] 0.30 mg/dL 0.00-0.30 [facility] Hematocrit Auto (Bld) [Volum e fraction]Ordered By: Caprice Jerry on 10-10-2023 Hematocrit (Bld) [Volume fraction] 40.7 % 37-47 [facility] Influenza virus A and B and SARS-CoV-2 (COVID-19) Ag panel - Upper respiratory specimOrdered By: Caprice Jerry on 10-10-2023 SARS-CoV-2 (COVID-19) RNA ALLEY+probe Ql (Resp) [facility] Laboratory - Chemistry and C hemistry - challengeOrdered By: Caprice Jerry on 10-10-2023 ALP [Catalytic activity/Vol] 97 U/L 45-117 [facility] ALT [Catalytic activity/Vol] 54 U/L 13-56 [facility] CO2 [Moles/Vol] 22.0 mmol/L 21.0-32.0 [facility] Globulin (S) [Mass/Vol] 3.8 g/dL 2.2-4.2 [facility] Lipase [Catalytic activity/Vol] 45 U/L 13-75 [facility] Comment on above: Please note:LIPASE r evised reference range effective 23. New Lipase methodology. Expected to produce lower values than the previous assay method. NEW Reference Range: 13 - 75 U/L Urea nitrogen/Creatinine [Mass ratio] 8.9 mg/mg 10-20 [facility] Laboratory - Hematology and Cell countsOrdered By: Caprice Jerry on 10-10-2023 Erythrocyte distribution width (RBC) [Entitic vol] 44.4 fL 35.1-43.9 [facility] Erythrocyte distribution width (RBC) [Ratio] 12.4 % 11.6-14.6 [facility] Immature granulocytes/100 WBC (Bld) 0.300 % 0.0-0.9 [facility] Comment on above: IG% - Immature Granu locytes (promyelocytes, myelocytes and metamyelocytes) > 1% indicates that a LEFT SHIFT is Present. MCH (RBC) [Entitic mass] 32.6 pg 27.0-32.0 [facility] Nucleated RBC/100 WBC (Bld) [Ratio] 0 % 0-5 [facility] MCHC Auto (RBC) [Mass/Vol]Or dered By: Caprice Jerry on 10-10-2023 MCHC (RBC) [Mass/Vol] 33.2 g/dL 32-36 [facility] No Panel InformationOrdered By: Caprice Jerry on 10-10-2023 D-Dimer Quantitative (PE/DVT) 0.45 FEU/ug/m 0.27-0.49 [facility] Comment on above: NORMAL D-Dimer level (<0.50) indicates no DVT or PE. Estimated Creatinine Clearance Calc 31.78 ml/min [facility] Estimated GFR (MDRD) Amer 36 mL/min >60 [facility] Comment on above: GFR Calc Estimated GFR (MDRD) Non-Af Amer 30 mL/min >60 [facility] Comment on above: Non- GFR Calc Troponin I High Sensitivity 12 pg/mL 3.0-54.0 [facility] Comment on above: Please Note: New Miri t Units and Gender Specific Reference Ranges. For more information see Policy Stat Procedure Wilsey High Sensitivity Troponin (TNIH) and attachments. Platelets bldOrdered By: Leona Jerry on 10-10-2023 Platelets (Bld) [#/Vol] 255 10*3/uL 150-450 [facility] Serum or plasma albumin alphonso urement (mass/volume)Ordered By: Caprice Jerry on 10-10-2023 Albumin [Mass/Vol] 3.5 g/dL 3.2-5.0 [facility] Serum or plasma calcium alphonso urement (mass/volume)Ordered By: Caprice Jerry on 10-10-2023 Calcium [Mass/Vol] 8.1 mg/dL 8.5-10.1 [facility] Serum or plasma creatinine m easurement (mass/volume)Ordered By: Caprice Jerry on 10-10-2023 Creatinine [Mass/Vol] 1.91 mg/dL 0.55-1.02 [facility] Comment on above: The validity of the calculated GFR & GFRAA in patients over 70 years has not been determined. Clinical correlation is essential. Serum or plasma urea nitroge n measurement (mass/volume)Ordered By: Caprice Jerry on 10-10-2023 Urea nitrogen [Mass/Vol] 17 mg/dL 7-18 [facility] Thin prep Papanicolaou smear with manual screeningOrdered By: Caprice Jerry on 10-10-2023 Thin prep Papanicolaou smear with manual screening 68 U/L 15-37 [facility] Thin prep Papanicolaou smear with manual screening 8 5-15 [facility] No Panel Informationon 09-15 POC SARS CoV-2 Antigen Negative [facility] Basophil percentageOrdered B y: Jim Manriquez on 08-25-2023 Bilirubin [Mass/Vol] 0.20 mg/dL 0.20-1.00 [facility] Comment on above: For patients on eltr ombopag therapy, use of Dimension Wilsey TBIL is not recommended. Cholesterol [Mass/Vol] 224 mg/dL <200 [facility] Comment on above: <200 mg/dL Desirable 200-240 mg/dL Borderline >240 mg/dL High Risk Protein [Mass/Vol] 7.2 g/dL 6.4-8.2 [facility] Triglyceride [Mass/Vol] 405 mg/dL <199 [facility] Comment on above: The drugs N-Acetylcy [...] on 08-25-2023 Bilirubin.direct [Mass/Vol] 0.10 mg/dL 0.00-0.30 [facility] Laboratory - Chemistry and C hemistry - challengeOrdered By: Jim Manriquez on 08-25-2023 ALP [Catalytic activity/Vol] 97 U/L 45-117 [facility] ALT [Catalytic activity/Vol] 88 U/L 13-56 [facility] Globulin (S) [Mass/Vol] 3.7 g/dL 2.2-4.2 [facility] Lipase [Catalytic activity/Vol] 53 U/L 13-75 [facility] Comment on above: Please note:LIPASE r evised reference range effective 23. New Lipase methodology. Expected to produce lower values than the previous assay method. NEW Reference Range: 13 - 75 U/L Serum or plasma albumin alphonso urement (mass/volume)Ordered By: Jim Manriquez on 08-25-2023 Albumin [Mass/Vol] 3.5 g/dL 3.2-5.0 [facility] Serum or plasma cholesterol in HDL measurement (mass/volume)Ordered By: Jim Manriquez on 08-25-2023 Cholesterol in HDL [Mass/Vol] 61 mg/dL >40 [facility] Comment on above: The drugs N-Acetylcy steine and Metamizole may falsely depress this assay. Reference Range HDL <40 mg/dL Low HDL Cholesterol HDL >or= 60 mg/dL High HDL Cholesterol Serum or plasma cholesterol in VLDL measurement (mass/volume)Ordered By: Jim Manriquez on 08-25-2023 Cholesterol in VLDL [Mass/Vol] [facility] Comment on above: Test not performed Serum or plasma low density lipoprotein (LDL) cholesterol measurement (mass/volume)Ordered By: Jim Manriquez on 08-25-2023 Cholesterol in LDL [Mass/Vol] [facility] Comment on above: Test not performed Thin prep Papanicolaou smear with manual screeningOrdered By: Jim Manriquez on 08-25-2023 Thin prep Papanicolaou smear with manual screening 43 U/L 15-37 [facility] Absolute lymphocyte countOrd ered By: Jennifer Davila on 08-23-2023 Lymphocytes Auto (Unsp spec) [#/Vol] 2.29 10*3/uL 0.83-4.51 [facility] Basophil percentageOrdered B y: Jennifer Davila on 08-23-2023 Basophil percentage 0 SEEN /hpf 0-5 [facility] Basophils/100 WBC (Bld) 0.5 % 0-1 [facility] Bilirubin [Mass/Vol] 0.30 mg/dL 0.20-1.00 [facility] Comment on above: For patients on eltr ombopag therapy, use of Dimension Wilsey TBIL is not recommended. Chloride [Moles/Vol] 103 mmol/L 98-107 [facility] Eosinophils/100 WBC (Bld) 1.6 % 0-5 [facility] Glucose [Mass/Vol] 205 mg/dL 74-106 [facility] Comment on above: Glucose result great er than or equal to 200 mg/dLsuggests DIABETES MELLITUS per A.D.A. criteria. Neutrophils (Bld) [#/Vol] 7.5 10*3/uL 2.0-7.7 [facility] Neutrophils/100 WBC (Bld) 69.4 % 47-70 [facility] Potassium [Moles/Vol] 4.3 mmol/L 3.5-5.1 [facility] Protein [Mass/Vol] 7.8 g/dL 6.4-8.2 [facility] Sodium [Moles/Vol] 135 mmol/L 136-145 [facility] WBC (Bld) [#/Vol] 10.8 10*3/uL 4.4-11.0 [facility] Bilirubin Test strip Ql (U)O rdered By: Jennifer Davila on 08-23-2023 Bilirubin Ql (U) Negative Negative [facility] Blood erythrocytes count (nu mber/volume)Ordered By: Jennifer Davila on 08-23-2023 RBC (Bld) [#/Vol] 4.30 10*6/uL 4.2-5.4 [facility] Blood hemoglobin measurement (mass/volume)Ordered By: Jennifer Davila on 08-23-2023 Hemoglobin (Bld) [Mass/Vol] 14.0 g/dL 12.0-15.0 [facility] Blood lymphocytes/100 leukoc ytesOrdered By: Jennifer Davila on 08-23-2023 Lymphocytes/100 WBC (Bld) 21.3 % 19-41 [facility] Blood monocytes/100 leukocyt esOrdered By: Jennifer Davila on 08-23-2023 Monocytes/100 WBC (Bld) 6.7 % 0-10 [facility] Blood platelet mean volumeOr dered By: Jennifer Davila on 08-23-2023 Platelet mean volume (Bld) [Entitic vol] 9.6 fL 6.2-12.0 [facility] Determination of erythrocyte mean corpuscular volume (MCV)Ordered By: Jennifer Davila on 08-23-2023 MCV (RBC) [Entitic vol] 97.9 fL 81-99 [facility] Hematocrit Auto (Bld) [Volum e fraction]Ordered By: Jennifer Davila on 08-23-2023 Hematocrit (Bld) [Volume fraction] 42.1 % 37-47 [facility] Ketones Test strip Ql (U)Ord ered By: Jennifer Davila on 08-23-2023 Ketones Ql (U) Negative Negative [facility] Laboratory - Chemistry and C hemistry - challengeOrdered By: Jennifer Davila on 08-23-2023 ALP [Catalytic activity/Vol] 69 U/L 45-117 [facility] ALT [Catalytic activity/Vol] 26 U/L 13-56 [facility] CO2 [Moles/Vol] 24.0 mmol/L 21.0-32.0 [facility] Globulin (S) [Mass/Vol] 4.2 g/dL 2.2-4.2 [facility] Lipase [Catalytic activity/Vol] 41 U/L 13-75 [facility] Comment on above: Please note:LIPASE r evised reference range effective 23. New Lipase methodology. Expected to produce lower values than the previous assay method. NEW Reference Range: 13 - 75 U/L Urea nitrogen/Creatinine [Mass ratio] 9.5 mg/mg 10-20 [facility] Laboratory - Hematology and Cell countsOrdered By: Jennifer Davila on 08-23-2023 Erythrocyte distribution width (RBC) [Entitic vol] 45.9 fL 35.1-43.9 [facility] Erythrocyte distribution width (RBC) [Ratio] 12.8 % 11.6-14.6 [facility] Immature granulocytes/100 WBC (Bld) 0.500 % 0.0-0.9 [facility] Comment on above: IG% - Immature Granu locytes (promyelocytes, myelocytes and metamyelocytes) > 1% indicates that a LEFT SHIFT is Present. MCH (RBC) [Entitic mass] 32.6 pg 27.0-32.0 [facility] Nucleated RBC/100 WBC (Bld) [Ratio] 0 % 0-5 [facility] MCHC Auto (RBC) [Mass/Vol]Or dered By: Jennifer Davila on 08-23-2023 MCHC (RBC) [Mass/Vol] 33.3 g/dL 32-36 [facility] Mucus LM Ql (Urine sed)Order ed By: Jennifer Davila on 08-23-2023 Mucus Ql (Urine sed) 0 SEEN /hpf [facility] Nitrite Test strip Ql (U)Ord ered By: Jennifer Davila on 08-23-2023 Nitrite Ql (U) Negative Negative [facility] No Panel InformationOrdered By: Jennifer Davila on 08-23-2023 Estimated Creatinine Clearance Calc 57.81 ml/min [facility] Estimated GFR (MDRD) Amer 72 mL/min >60 [facility] Comment on above: GFR Calc Estimated GFR (MDRD) Non-Af Amer 60 mL/min >60 [facility] Comment on above: Non- GFR Calc Troponin I High Sensitivity 3 pg/mL 3.0-54.0 [facility] Comment on above: Please Note: New Miri t Units and Gender Specific Reference Ranges. For more information see Policy Stat Procedure Wilsey High Sensitivity Troponin (TNIH) and attachments. Platelets bldOrdered By: Kole Davila on 08-23-2023 Platelets (Bld) [#/Vol] 264 10*3/uL 150-450 [facility] Protein Test strip Ql (U)Ord ered By: Jennifer Davila on 08-23-2023 Protein Ql (U) Negative Negative [facility] Serum or plasma albumin alphonso urement (mass/volume)Ordered By: Jennifer Davila on 08-23-2023 Albumin [Mass/Vol] 3.6 g/dL 3.2-5.0 [facility] Serum or plasma albumin/glob ulin mass ratioOrdered By: Jennifer Davila on 08-23-2023 Albumin/Globulin [Mass ratio] 0.9 {ratio} 0.9-2.4 [facility] Serum or plasma calcium alphonso urement (mass/volume)Ordered By: Jennifer Davila on 08-23-2023 Calcium [Mass/Vol] 8.8 mg/dL 8.5-10.1 [facility] Serum or plasma creatinine m easurement (mass/volume)Ordered By: Jennifer Davila on 08-23-2023 Creatinine [Mass/Vol] 1.05 mg/dL 0.55-1.02 [facility] Comment on above: The validity of the calculated GFR & GFRAA in patients over 70 years has not been determined. Clinical correlation is essential. Serum or plasma urea nitroge n measurement (mass/volume)Ordered By: Jennifer Davila on 08-23-2023 Urea nitrogen [Mass/Vol] 10 mg/dL 7-18 [facility] Squamous epithelial cells de tection in urine sediment by light microscopyOrdered By: Jennifer Davila on 08-23-2023 Epithelial cells.squamous LM Ql (Urine sed) 0-5 SEEN /hpf 5-10 [facility] Thin prep Papanicolaou smear with manual screeningOrdered By: Jennifer Davila on 08-23-2023 Thin prep Papanicolaou smear with manual screening 18 U/L 15-37 [facility] Thin prep Papanicolaou smear with manual screening 8 5-15 [facility] Urine blood detectionOrdered By: Jennifer Davila on 08-23-2023 RBC Ql (U) Negative Negative [facility] RBC Ql (U) 0 SEEN /hpf 0-5 [facility] Urine clarityOrdered By: Kole Davila on 08-23-2023 Clarity (U) Clear Clear [facility] Urine color determinationOrd ered By: Jennifer Davila on 08-23-2023 Color (U) Yellow Yellow [facility] Urine glucose detectionOrder ed By: Jennifer Davila on 08-23-2023 Glucose Ql (U) 1000 mg/dl Normal [facility] Urine leukocyte esterase det ection by dipstickOrdered By: Jennifer Davila on 08-23-2023 Leukocyte esterase Test strip Ql (U) Negative Negative [facility] Urine pHOrdered By: Suha Davila on 08-23-2023 pH (U) 6.0 [pH] 5.0 - 8.0 [facility] Urine sediment bacteria coun t by microscopy (number/high power field)Ordered By: Jennifer Davila on 08-23-2023 Bacteria LM.HPF (Urine sed) [#/Area] 0 /[HPF] None Seen [facility] Urine specific gravity measu rementOrdered By: Jennifer Davila on 08-23-2023 Specific gravity (U) [Rel density] 1.010 1.002-1.030 [facility] Urobilinogen Auto test strip Ql (U)Ordered By: Jennifer Davila on 08-23-2023 Urobilinogen Ql (U) Normal mg/dl Normal [facility] Absolute lymphocyte countOrd ered By: Caprice Jerry on 07-29-2023 Lymphocytes Auto (Unsp spec) [#/Vol] 2.24 10*3/uL 0.83-4.51 [facility] Basophil percentageOrdered B y: Caprice Jerry on 07-29-2023 Basophils/100 WBC (Bld) 0.5 % 0-1 [facility] Bilirubin [Mass/Vol] 0.30 mg/dL 0.20-1.00 [facility] Comment on above: For patients on eltr ombopag therapy, use of Dimension Wilsey TBIL is not recommended. Chloride [Moles/Vol] 102 mmol/L 98-107 [facility] Eosinophils/100 WBC (Bld) 1.6 % 0-5 [facility] Glucose [Mass/Vol] 173 mg/dL 74-106 [facility] Comment on above: Fasting Glucose resu lt greater than or equal to 126 mg/dL suggests DIABETES MELLITUS per A.D.A. criteria. Neutrophils (Bld) [#/Vol] 5.6 10*3/uL 2.0-7.7 [facility] Neutrophils/100 WBC (Bld) 63.7 % 47-70 [facility] Potassium [Moles/Vol] 3.9 mmol/L 3.5-5.1 [facility] Protein [Mass/Vol] 7.3 g/dL 6.4-8.2 [facility] Sodium [Moles/Vol] 135 mmol/L 136-145 [facility] WBC (Bld) [#/Vol] 8.8 10*3/uL 4.4-11.0 [facility] Beta hCG serum qualOrdered B y: Caprice Jerry on 07-29-2023 Beta HCG ( test) Ql Negative [facility] Blood erythrocytes count (nu mber/volume)Ordered By: Caprice Jerry on 07-29-2023 RBC (Bld) [#/Vol] 3.94 10*6/uL 4.2-5.4 [facility] Blood hemoglobin measurement (mass/volume)Ordered By: Caprice Jerry on 07-29-2023 Hemoglobin (Bld) [Mass/Vol] 13.1 g/dL 12.0-15.0 [facility] Blood lymphocytes/100 leukoc ytesOrdered By: Caprice Jerry on 07-29-2023 Lymphocytes/100 WBC (Bld) 25.4 % 19-41 [facility] Blood monocytes/100 leukocyt esOrdered By: Caprice Jerry on 07-29-2023 Monocytes/100 WBC (Bld) 8.5 % 0-10 [facility] Blood platelet mean volumeOr dered By: Caprice Jerry on 07-29-2023 Platelet mean volume (Bld) [Entitic vol] 9.6 fL 6.2-12.0 [facility] Determination of erythrocyte mean corpuscular volume (MCV)Ordered By: Caprice Jerry on 07-29-2023 MCV (RBC) [Entitic vol] 97.7 fL 81-99 [facility] Direct bilirubinOrdered By: Caprice Jerry on 07-29-2023 Bilirubin.direct [Mass/Vol] 0.08 mg/dL 0.00-0.30 [facility] Hematocrit Auto (Bld) [Volum e fraction]Ordered By: Caprice Jerry on 07-29-2023 Hematocrit (Bld) [Volume fraction] 38.5 % 37-47 [facility] Laboratory - Chemistry and C hemistry - challengeOrdered By: Caprice Jerry on 07-29-2023 ALP [Catalytic activity/Vol] 93 U/L 45-117 [facility] ALT [Catalytic activity/Vol] 45 U/L 13-56 [facility] CO2 [Moles/Vol] 26.0 mmol/L 21.0-32.0 [facility] Globulin (S) [Mass/Vol] 3.8 g/dL 2.2-4.2 [facility] Lipase [Catalytic activity/Vol] 32 U/L 13-75 [facility] Comment on above: Please note:LIPASE r evised reference range effective 23. New Lipase methodology. Expected to produce lower values than the previous assay method. NEW Reference Range: 13 - 75 U/L Urea nitrogen/Creatinine [Mass ratio] 12.5 mg/mg 10-20 [facility] Laboratory - Hematology and Cell countsOrdered By: Caprice Jerry on 07-29-2023 Erythrocyte distribution width (RBC) [Entitic vol] 45.1 fL 35.1-43.9 [facility] Erythrocyte distribution width (RBC) [Ratio] 12.7 % 11.6-14.6 [facility] Immature granulocytes/100 WBC (Bld) 0.300 % 0.0-0.9 [facility] Comment on above: IG% - Immature Granu locytes (promyelocytes, myelocytes and metamyelocytes) > 1% indicates that a LEFT SHIFT is Present. MCH (RBC) [Entitic mass] 33.2 pg 27.0-32.0 [facility] Nucleated RBC/100 WBC (Bld) [Ratio] 0 % 0-5 [facility] MCHC Auto (RBC) [Mass/Vol]Or dered By: Caprice Jerry on 07-29-2023 MCHC (RBC) [Mass/Vol] 34.0 g/dL 32-36 [facility] No Panel InformationOrdered By: Caprice Jerry on 07-29-2023 Troponin I High Sensitivity 4 pg/mL 3.0-54.0 [facility] Comment on above: Please Note: New Miri t Units and Gender Specific Reference Ranges. For more information see Policy Stat Procedure Wilsey High Sensitivity Troponin (TNIH) and attachments. Estimated Creatinine Clearance Calc 68.98 ml/min [facility] Estimated GFR (MDRD) Amer 89 mL/min >60 [facility] Comment on above: GFR Calc Estimated GFR (MDRD) Non-Af Amer 74 mL/min >60 [facility] Comment on above: Non- GFR Calc Platelets bldOrdered By: Leona Jerry on 07-29-2023 Platelets (Bld) [#/Vol] 281 10*3/uL 150-450 [facility] Serum or plasma albumin alphonso urement (mass/volume)Ordered By: Caprice Jerry on 07-29-2023 Albumin [Mass/Vol] 3.5 g/dL 3.2-5.0 [facility] Serum or plasma calcium alphonso urement (mass/volume)Ordered By: Caprice Jerry on 07-29-2023 Calcium [Mass/Vol] 8.5 mg/dL 8.5-10.1 [facility] Serum or plasma creatinine m easurement (mass/volume)Ordered By: Caprice Jerry on 07-29-2023 Creatinine [Mass/Vol] 0.88 mg/dL 0.55-1.02 [facility] Comment on above: The validity of the calculated GFR & GFRAA in patients over 70 years has not been determined. Clinical correlation is essential. Serum or plasma urea nitroge n measurement (mass/volume)Ordered By: Caprice Jerry on 07-29-2023 Urea nitrogen [Mass/Vol] 11 mg/dL 7-18 [facility] Thin prep Papanicolaou smear with manual screeningOrdered By: Caprice Jerry on 07-29-2023 Thin prep Papanicolaou smear with manual screening 24 U/L 15-37 [facility] Thin prep Papanicolaou smear with manual screening 7 5-15 [facility] Absolute lymphocyte countOrd ered By: Milana Garcia on 07-19-2023 Lymphocytes Auto (Unsp spec) [#/Vol] 2.51 10*3/uL 0.83-4.51 [facility] Basophil percentageOrdered B y: Milana Garcia on 07-19-2023 Basophil percentage 3.1 mg/dL 2.5-4.9 [facility] Basophils/100 WBC (Bld) 0.4 % 0-1 [facility] Bilirubin [Mass/Vol] 0.50 mg/dL 0.20-1.00 [facility] Comment on above: For patients on eltr ombopag therapy, use of Dimension Wilsey TBIL is not recommended. Chloride [Moles/Vol] 106 mmol/L 98-107 [facility] Eosinophils/100 WBC (Bld) 3.2 % 0-5 [facility] Glucose [Mass/Vol] 123 mg/dL 74-106 [facility] Comment on above: Fasting Glucose resu lt from 100 to 125 mg/dL suggests IMPAIRED HOMEOSTASIS per A.D.A. criteria. Neutrophils (Bld) [#/Vol] 3.7 10*3/uL 2.0-7.7 [facility] Neutrophils/100 WBC (Bld) 52.0 % 47-70 [facility] Potassium [Moles/Vol] 3.5 mmol/L 3.5-5.1 [facility] Protein [Mass/Vol] 6.9 g/dL 6.4-8.2 [facility] Sodium [Moles/Vol] 140 mmol/L 136-145 [facility] WBC (Bld) [#/Vol] 7.2 10*3/uL 4.4-11.0 [facility] Blood erythrocytes count (nu mber/volume)Ordered By: Milana Garcia on 07-19-2023 RBC (Bld) [#/Vol] 3.83 10*6/uL 4.2-5.4 [facility] Blood hemoglobin measurement (mass/volume)Ordered By: Milana Garcia on 07-19-2023 Hemoglobin (Bld) [Mass/Vol] 12.3 g/dL 12.0-15.0 [facility] Blood lymphocytes/100 leukoc ytesOrdered By: Milana Garcia on 07-19-2023 Lymphocytes/100 WBC (Bld) 35.1 % 19-41 [facility] Blood monocytes/100 leukocyt esOrdered By: Milana Garcia on 07-19-2023 Monocytes/100 WBC (Bld) 9.0 % 0-10 [facility] Blood platelet mean volumeOr dered By: Milana Garcia on 07-19-2023 Platelet mean volume (Bld) [Entitic vol] 9.6 fL 6.2-12.0 [facility] Determination of erythrocyte mean corpuscular volume (MCV)Ordered By: Milana Garcia on 07-19-2023 MCV (RBC) [Entitic vol] 97.9 fL 81-99 [facility] Hematocrit Auto (Bld) [Volum e fraction]Ordered By: Milana Garcia on 07-19-2023 Hematocrit (Bld) [Volume fraction] 37.5 % 37-47 [facility] Laboratory - Chemistry and C hemistry - challengeOrdered By: Milana Garcia on 07-19-2023 ALP [Catalytic activity/Vol] 68 U/L 45-117 [facility] ALT [Catalytic activity/Vol] 28 U/L 13-56 [facility] CO2 [Moles/Vol] 27.0 mmol/L 21.0-32.0 [facility] Cobalamin (Vitamin B12) [Mass/Vol] 534 pg/mL 211-911 [facility] Globulin (S) [Mass/Vol] 3.6 g/dL 2.2-4.2 [facility] Magnesium [Mass/Vol] 1.6 mg/dL 1.6-2.6 [facility] Urea nitrogen/Creatinine [Mass ratio] 10.4 mg/mg 10-20 [facility] Laboratory - Hematology and Cell countsOrdered By: Milana Garcia on 07-19-2023 Erythrocyte distribution width (RBC) [Entitic vol] 43.8 fL 35.1-43.9 [facility] Erythrocyte distribution width (RBC) [Ratio] 12.3 % 11.6-14.6 [facility] Immature granulocytes/100 WBC (Bld) 0.300 % 0.0-0.9 [facility] Comment on above: IG% - Immature Granu locytes (promyelocytes, myelocytes and metamyelocytes) > 1% indicates that a LEFT SHIFT is Present. MCH (RBC) [Entitic mass] 32.1 pg 27.0-32.0 [facility] Nucleated RBC/100 WBC (Bld) [Ratio] 0 % 0-5 [facility] MCHC Auto (RBC) [Mass/Vol]Or dered By: Milana Garcia on 07-19-2023 MCHC (RBC) [Mass/Vol] 32.8 g/dL 32-36 [facility] No Panel InformationOrdered By: Milana Garcia on 07-19-2023 Estimated GFR (MDRD) Amer 121 mL/min >60 [facility] Comment on above: GFR Calc Estimated GFR (MDRD) Non-Af Amer 100 mL/min >60 [facility] Comment on above: Non- GFR Calc Thyroid Stimulating Hormone (TSH) 1.07 uIU/mL 0.358-3.74 [facility] Platelets bldOrdered By: Yamel Garcia on 07-19-2023 Platelets (Bld) [#/Vol] 245 10*3/uL 150-450 [facility] Serum or plasma albumin alphonso urement (mass/volume)Ordered By: Milana Garcia on 07-19-2023 Albumin [Mass/Vol] 3.3 g/dL 3.2-5.0 [facility] Serum or plasma albumin/glob ulin mass ratioOrdered By: Milana Garcia on 07-19-2023 Albumin/Globulin [Mass ratio] 0.9 {ratio} 0.9-2.4 [facility] Serum or plasma calcium alphonso urement (mass/volume)Ordered By: Milana Garcia on 07-19-2023 Calcium [Mass/Vol] 8.4 mg/dL 8.5-10.1 [facility] Serum or plasma creatinine m easurement (mass/volume)Ordered By: Milana Garcia on 07-19-2023 Creatinine [Mass/Vol] 0.68 mg/dL 0.55-1.02 [facility] Comment on above: The validity of the calculated GFR & GFRAA in patients over 70 years has not been determined. Clinical correlation is essential. Serum or plasma folate measu rement (mass/volume)Ordered By: Milana Garcia on 07-19-2023 Folate [Mass/Vol] 58.30 ng/mL 3.1-55.4 [facility] Serum or plasma urea nitroge n measurement (mass/volume)Ordered By: Milana Garcia on 07-19-2023 Urea nitrogen [Mass/Vol] 7 mg/dL 7-18 [facility] Thin prep Papanicolaou smear with manual screeningOrdered By: Milana Garcia on 07-19-2023 Thin prep Papanicolaou smear with manual screening 19 U/L 15-37 [facility] Thin prep Papanicolaou smear with manual screening 7 5-15 [facility] No Panel InformationOrdered By: Dr. Jerry on 05-25-2023 Troponin I High Sensitivity 3 pg/mL 3.0-54.0 [facility] Comment on above: Please Note: New Miri t Units and Gender Specific Reference Ranges. For more information see Policy Stat Procedure [facility]sey High Sensitivity Troponin (TNIH) and attachments. Absolute lymphocyte countOrd ered By: Dr. Jerry on 05-24-2023 Lymphocytes Auto (Unsp spec) [#/Vol] 3.25 10*3/uL 0.83-4.51 [facility] Basophil percentageOrdered B y: Dr. Jerry on 05-24-2023 Basophil percentage 0 SEEN /hpf 0-5 [facility] Basophils/100 WBC (Bld) 0.7 % 0-1 [facility] Bilirubin [Mass/Vol] 0.20 mg/dL 0.20-1.00 [facility] Comment on above: For patients on eltr ombopag therapy, use of Dimension Wilsey TBIL is not recommended. Chloride [Moles/Vol] 112 mmol/L 98-107 [facility] Eosinophils/100 WBC (Bld) 2.2 % 0-5 [facility] Glucose [Mass/Vol] 127 mg/dL 74-106 [facility] Comment on above: Fasting Glucose resu lt greater than or equal to 126 mg/dL suggests DIABETES MELLITUS per A.D.A. criteria. Neutrophils (Bld) [#/Vol] 2.9 10*3/uL 2.0-7.7 [facility] Neutrophils/100 WBC (Bld) 40.3 % 47-70 [facility] Potassium [Moles/Vol] 5.9 mmol/L 3.5-5.1 [facility] Comment on above: Moderate Hemolysis, Result may be falsely increased. Protein [Mass/Vol] 6.7 g/dL 6.4-8.2 [facility] Sodium [Moles/Vol] 138 mmol/L 136-145 [facility] WBC (Bld) [#/Vol] 7.2 10*3/uL 4.4-11.0 [facility] Beta hCG serum qualOrdered B y: Dr. Jerry on 05-24-2023 Beta HCG ( test) Ql Negative [facility] Bilirubin Test strip Ql (U)O rdered By: Dr. Jerry on 05-24-2023 Bilirubin Ql (U) Negative Negative [facility] Blood erythrocytes count (nu mber/volume)Ordered By: Dr. Jerry on 05-24-2023 RBC (Bld) [#/Vol] 3.88 10*6/uL 4.2-5.4 [facility] Blood hemoglobin measurement (mass/volume)Ordered By: Dr. Jerry on 05-24-2023 Hemoglobin (Bld) [Mass/Vol] 12.9 g/dL 12.0-15.0 [facility] Blood lymphocytes/100 leukoc ytesOrdered By: Dr. Jerry on 05-24-2023 Lymphocytes/100 WBC (Bld) 45.0 % 19-41 [facility] Blood monocytes/100 leukocyt esOrdered By: Dr. Jerry on 05-24-2023 Monocytes/100 WBC (Bld) 11.4 % 0-10 [facility] Blood platelet mean volumeOr dered By: Dr. Jerry on 05-24-2023 Platelet mean volume (Bld) [Entitic vol] 9.8 fL 6.2-12.0 [facility] Determination of erythrocyte mean corpuscular volume (MCV)Ordered By: Dr. Jerry on 05-24-2023 MCV (RBC) [Entitic vol] 100.0 fL 81-99 [facility] Direct bilirubinOrdered By: Dr. Jerry on 05-24-2023 Bilirubin.direct [Mass/Vol] mg/dL 0.00-0.30 [facility] Hematocrit Auto (Bld) [Volum e fraction]Ordered By: Dr. Jerry on 05-24-2023 Hematocrit (Bld) [Volume fraction] 38.8 % 37-47 [facility] Ketones Test strip Ql (U)Ord ered By: Dr. Jerry on 05-24-2023 Ketones Ql (U) Negative Negative [facility] Laboratory - Chemistry and C hemistry - challengeOrdered By: Dr. Jerry on 05-24-2023 ALP [Catalytic activity/Vol] 57 U/L 45-117 [facility] ALT [Catalytic activity/Vol] 27 U/L 13-56 [facility] CO2 [Moles/Vol] 19.0 mmol/L 21.0-32.0 [facility] Globulin (S) [Mass/Vol] 3.8 g/dL 2.2-4.2 [facility] Lipase [Catalytic activity/Vol] 64 U/L 13-75 [facility] Comment on above: Please note:LIPASE r evised reference range effective 23. New Lipase methodology. Expected to produce lower values than the previous assay method. NEW Reference Range: 13 - 75 U/L Urea nitrogen/Creatinine [Mass ratio] 9.1 mg/mg 10-20 [facility] Laboratory - Hematology and Cell countsOrdered By: Dr. Jerry on 05-24-2023 Erythrocyte distribution width (RBC) [Entitic vol] 46.2 fL 35.1-43.9 [facility] Erythrocyte distribution width (RBC) [Ratio] 12.6 % 11.6-14.6 [facility] Immature granulocytes/100 WBC (Bld) 0.400 % 0.0-0.9 [facility] Comment on above: IG% - Immature Granu locytes (promyelocytes, myelocytes and metamyelocytes) > 1% indicates that a LEFT SHIFT is Present. MCH (RBC) [Entitic mass] 33.2 pg 27.0-32.0 [facility] Nucleated RBC/100 WBC (Bld) [Ratio] 0 % 0-5 [facility] MCHC Auto (RBC) [Mass/Vol]Or dered By: Dr. Jerry on 05-24-2023 MCHC (RBC) [Mass/Vol] 33.2 g/dL 32-36 [facility] Mucus LM Ql (Urine sed)Order ed By: Dr. Jerry on 05-24-2023 Mucus Ql (Urine sed) 0 SEEN /hpf [facility] Nitrite Test strip Ql (U)Ord ered By: Dr. Jerry on 05-24-2023 Nitrite Ql (U) Negative Negative [facility] No Panel InformationOrdered By: Dr. Jerry on 05-24-2023 Estimated Creatinine Clearance Calc 45.99 ml/min [facility] Estimated GFR (MDRD) Amer 56 mL/min >60 [facility] Comment on above: GFR Calc Estimated GFR (MDRD) Non-Af Amer 46 mL/min >60 [facility] Comment on above: Non- GFR Calc Ethyl Alcohol Level 193.0 mg/dL [facility] Comment on above: The serum:whole bloo d ethanol ratio is approximately 1.14and varies slightly with hematocrit. Medical Alcohol reference interval and critical value innon-tolerant individuals; 50 - 100 Impairment 100 Intoxication 100 - 250 Severe Poisoning 250 - 400 Deep/possible fatal coma Platelets bldOrdered By: Dr. Jerry on 05-24-2023 Platelets (Bld) [#/Vol] 276 10*3/uL 150-450 [facility] Protein Test strip Ql (U)Ord ered By: Dr. Jerry on 05-24-2023 Protein Ql (U) Negative Negative [facility] Serum or plasma acetone alphonso urement (mass/volume)Ordered By: Dr. Jerry on 05-24-2023 Acetone [Mass/Vol] Negative NEG [facility] Serum or plasma albumin alphonso urement (mass/volume)Ordered By: Dr. Jerry on 05-24-2023 Albumin [Mass/Vol] 2.9 g/dL 3.2-5.0 [facility] Serum or plasma calcium alphonso urement (mass/volume)Ordered By: Dr. Jerry on 05-24-2023 Calcium [Mass/Vol] 7.5 mg/dL 8.5-10.1 [facility] Serum or plasma creatinine m easurement (mass/volume)Ordered By: Dr. Jerry on 05-24-2023 Creatinine [Mass/Vol] 1.32 mg/dL 0.55-1.02 [facility] Comment on above: The validity of the calculated GFR & GFRAA in patients over 70 years has not been determined. Clinical correlation is essential. Serum or plasma urea nitroge n measurement (mass/volume)Ordered By: Dr. Jerry on 05-24-2023 Urea nitrogen [Mass/Vol] 12 mg/dL 7-18 [facility] Squamous epithelial cells de tection in urine sediment by light microscopyOrdered By: Dr. Jerry on 05-24-2023 Epithelial cells.squamous LM Ql (Urine sed) 0 SEEN /hpf 5-10 [facility] Thin prep Papanicolaou smear with manual screeningOrdered By: Dr. Jerry on 05-24-2023 Thin prep Papanicolaou smear with manual screening 47 U/L 15-37 [facility] Comment on above: Moderate Hemolysis, Result may be falsely increased. Thin prep Papanicolaou smear with manual screening 7 5-15 [facility] Urine blood detectionOrdered By: Dr. Jerry on 05-24-2023 RBC Ql (U) Negative Negative [facility] RBC Ql (U) 0 SEEN /hpf 0-5 [facility] Urine clarityOrdered By: Dr. Jerry on 05-24-2023 Clarity (U) Clear Clear [facility] Urine color determinationOrd ered By: Dr. Jerry on 05-24-2023 Color (U) Yellow Yellow [facility] Urine glucose detectionOrder ed By: Dr. Jerry on 05-24-2023 Glucose Ql (U) 1000 mg/dl Normal [facility] Urine leukocyte esterase det ection by dipstickOrdered By: Dr. Jerry on 05-24-2023 Leukocyte esterase Test strip Ql (U) Negative Negative [facility] Urine pHOrdered By: Dr. Maximiliano morris on 05-24-2023 pH (U) 6.5 [pH] 5.0 - 8.0 [facility] Urine sediment bacteria coun t by microscopy (number/high power field)Ordered By: Dr. Jerry on 05-24-2023 Bacteria LM.HPF (Urine sed) [#/Area] 0 /[HPF] None Seen [facility] Urine specific gravity measu rementOrdered By: Dr. Jerry on 05-24-2023 Specific gravity (U) [Rel density] 1.005 1.002-1.030 [facility] Urobilinogen Auto test strip Ql (U)Ordered By: Dr. Jerry on 05-24-2023 Urobilinogen Ql (U) Normal mg/dl Normal [facility] Basophil percentageOrdered B y: Milana Garcia on 05-19-2023 Basophil percentage 2.6 mg/dL 2.5-4.9 [facility] Bilirubin [Mass/Vol] 0.30 mg/dL 0.20-1.00 [facility] Comment on above: For patients on eltr ombopag therapy, use of Dimension Wilsey TBIL is not recommended. Protein [Mass/Vol] 7.2 g/dL 6.4-8.2 [facility] Direct bilirubinOrdered By: Milana Garcia on 05-19-2023 Bilirubin.direct [Mass/Vol] 0.11 mg/dL 0.00-0.30 [facility] Laboratory - Chemistry and C hemistry - challengeOrdered By: Milana Garcia on 05-19-2023 ALP [Catalytic activity/Vol] 69 U/L 45-117 [facility] ALT [Catalytic activity/Vol] 22 U/L 13-56 [facility] Cobalamin (Vitamin B12) [Mass/Vol] 361 pg/mL 211-911 [facility] Free T4 [Mass/Vol] 0.78 ng/dL 0.76-1.46 [facility] Globulin (S) [Mass/Vol] 3.8 g/dL 2.2-4.2 [facility] Magnesium [Mass/Vol] 1.8 mg/dL 1.6-2.6 [facility] No Panel InformationOrdered By: Milana Garcia on 05-19-2023 Thyroid Stimulating Hormone (TSH) 1.95 uIU/mL 0.358-3.74 [facility] Serum or plasma albumin alphonso urement (mass/volume)Ordered By: Milana Garcia on 05-19-2023 Albumin [Mass/Vol] 3.4 g/dL 3.2-5.0 [facility] Serum or plasma ferritin alexis surement (mass/volume)Ordered By: Milana Garcia on 05-19-2023 Ferritin [Mass/Vol] 69 ng/mL 8-252 [facility] Serum or plasma folate measu rement (mass/volume)Ordered By: Milana Garcia on 05-19-2023 Folate [Mass/Vol] 4.00 ng/mL 3.1-55.4 [facility] Thin prep Papanicolaou smear with manual screeningOrdered By: Milana Garcia on 05-19-2023 Thin prep Papanicolaou smear with manual screening 18 U/L 15-37 [facility] No Panel InformationOrdered By: Dr. Dyer on 05-05-2023 Troponin I High Sensitivity < 3 pg/mL 3.0-54.0 [facility] Comment on above: Please Note: New Miri t Units and Gender Specific Reference Ranges. For more information see Policy Stat Procedure Wilsey High Sensitivity Troponin (TNIH) and attachments. Absolute lymphocyte countOrd ered By: Dr. Dyer on 05-04-2023 Lymphocytes Auto (Unsp spec) [#/Vol] 3.17 10*3/uL 0.83-4.51 [facility] Basophil percentageOrdered B y: Dr. Dyer on 05-04-2023 Basophils/100 WBC (Bld) 0.4 % 0-1 [facility] Chloride [Moles/Vol] 105 mmol/L 98-107 [facility] Eosinophils/100 WBC (Bld) 2.7 % 0-5 [facility] Glucose [Mass/Vol] 103 mg/dL 74-106 [facility] Comment on above: Fasting Glucose resu lt from 100 to 125 mg/dL suggests IMPAIRED HOMEOSTASIS per A.D.A. criteria. Neutrophils (Bld) [#/Vol] 4.6 10*3/uL 2.0-7.7 [facility] Neutrophils/100 WBC (Bld) 51.3 % 47-70 [facility] Potassium [Moles/Vol] 3.4 mmol/L 3.5-5.1 [facility] Sodium [Moles/Vol] 138 mmol/L 136-145 [facility] WBC (Bld) [#/Vol] 8.9 10*3/uL 4.4-11.0 [facility] Blood erythrocytes count (nu mber/volume)Ordered By: Dr. Dyer on 05-04-2023 RBC (Bld) [#/Vol] 3.72 10*6/uL 4.2-5.4 [facility] Blood hemoglobin measurement (mass/volume)Ordered By: Dr. Dyer on 05-04-2023 Hemoglobin (Bld) [Mass/Vol] 12.1 g/dL 12.0-15.0 [facility] Blood lymphocytes/100 leukoc ytesOrdered By: Dr. Dyer on 05-04-2023 Lymphocytes/100 WBC (Bld) 35.6 % 19-41 [facility] Blood monocytes/100 leukocyt esOrdered By: Dr. Dyer on 05-04-2023 Monocytes/100 WBC (Bld) 9.4 % 0-10 [facility] Blood platelet mean volumeOr dered By: Dr. Dyer on 05-04-2023 Platelet mean volume (Bld) [Entitic vol] 9.4 fL 6.2-12.0 [facility] Determination of erythrocyte mean corpuscular volume (MCV)Ordered By: Dr. Dyer on 05-04-2023 MCV (RBC) [Entitic vol] 98.4 fL 81-99 [facility] Hematocrit Auto (Bld) [Volum e fraction]Ordered By: Dr. Dyer on 05-04-2023 Hematocrit (Bld) [Volume fraction] 36.6 % 37-47 [facility] Laboratory - Chemistry and C hemistry - challengeOrdered By: Dr. Dyer on 05-04-2023 CO2 [Moles/Vol] 27.0 mmol/L 21.0-32.0 [facility] Urea nitrogen/Creatinine [Mass ratio] 19.2 mg/mg 10-20 [facility] Laboratory - Hematology and Cell countsOrdered By: Dr. Dyer on 05-04-2023 Erythrocyte distribution width (RBC) [Entitic vol] 47.8 fL 35.1-43.9 [facility] Erythrocyte distribution width (RBC) [Ratio] 13.3 % 11.6-14.6 [facility] Immature granulocytes/100 WBC (Bld) 0.600 % 0.0-0.9 [facility] Comment on above: IG% - Immature Granu locytes (promyelocytes, myelocytes and metamyelocytes) > 1% indicates that a LEFT SHIFT is Present. MCH (RBC) [Entitic mass] 32.5 pg 27.0-32.0 [facility] Nucleated RBC/100 WBC (Bld) [Ratio] 0 % 0-5 [facility] MCHC Auto (RBC) [Mass/Vol]Or dered By: Dr. Dyer on 05-04-2023 MCHC (RBC) [Mass/Vol] 33.1 g/dL 32-36 [facility] No Panel InformationOrdered By: Dr. Dyer on 05-04-2023 Estimated Creatinine Clearance Calc 83.15 ml/min [facility] Estimated GFR (MDRD) Amer 110 mL/min >60 [facility] Comment on above: GFR Calc Estimated GFR (MDRD) Non-Af Amer 91 mL/min >60 [facility] Comment on above: Non- GFR Calc Platelets bldOrdered By: Dr. Dyer on 05-04-2023 Platelets (Bld) [#/Vol] 274 10*3/uL 150-450 [facility] Serum or plasma calcium alphonso urement (mass/volume)Ordered By: Dr. Dyer on 05-04-2023 Calcium [Mass/Vol] 8.6 mg/dL 8.5-10.1 [facility] Serum or plasma creatinine m easurement (mass/volume)Ordered By: Dr. Dyer on 05-04-2023 Creatinine [Mass/Vol] 0.73 mg/dL 0.55-1.02 [facility] Comment on above: The validity of the calculated GFR & GFRAA in patients over 70 years has not been determined. Clinical correlation is essential. Serum or plasma urea nitroge n measurement (mass/volume)Ordered By: Dr. Dyer on 05-04-2023 Urea nitrogen [Mass/Vol] 14 mg/dL 06-15 [facility] Thin prep Papanicolaou smear with manual screeningOrdered By: Dr. Dyer on 05-04-2023 Thin prep Papanicolaou smear with manual screening 6 - [facility] Laboratory - Microbiology an d Antimicrobial susceptibilityOrdered By: Dr. Jacobs on 04-15-2023 Bacteria identified Cx Nom (Bld) No growth in 5 days. [facility] Absolute lymphocyte countOrd ered By: Dr. Kiran on 04-11-2023 Lymphocytes Auto (Unsp spec) [#/Vol] 2.75 10*3/uL 0.83-4.51 [facility] Basophil percentageOrdered B y: Dr. Kiran on 04-11-2023 Basophils/100 WBC (Bld) 0.3 % 0-1 [facility] Chloride [Moles/Vol] 105 mmol/L 98-107 [facility] Eosinophils/100 WBC (Bld) 0.7 % 0-5 [facility] Glucose [Mass/Vol] 143 mg/dL 74-106 [facility] Comment on above: Fasting Glucose resu lt greater than or equal to 126 mg/dL suggests DIABETES MELLITUS per A.D.A. criteria. Neutrophils (Bld) [#/Vol] 7.8 10*3/uL 2.0-7.7 [facility] Neutrophils/100 WBC (Bld) 67.1 % 47-70 [facility] Potassium [Moles/Vol] 4.1 mmol/L 3.5-5.1 [facility] Sodium [Moles/Vol] 137 mmol/L 136-145 [facility] WBC (Bld) [#/Vol] 11.6 10*3/uL 4.4-11.0 [facility] Basophil percentageOrdered B y: Dr. Johnson on 04-11-2023 Lactate [Moles/Vol] 0.6 mmol/L 0.4-2.0 [facility] Blood erythrocytes count (nu mber/volume)Ordered By: Dr. Kiran on 04-11-2023 RBC (Bld) [#/Vol] 3.87 10*6/uL 4.2-5.4 [facility] Blood hemoglobin measurement (mass/volume)Ordered By: Dr. Kiran on 04-11-2023 Hemoglobin (Bld) [Mass/Vol] 12.6 g/dL 12.0-15.0 [facility] Blood lymphocytes/100 leukoc ytesOrdered By: Dr. Kiran on 04-11-2023 Lymphocytes/100 WBC (Bld) 23.8 % 19-41 [facility] Blood monocytes/100 leukocyt esOrdered By: Dr. Kiran on 04-11-2023 Monocytes/100 WBC (Bld) 7.8 % 0-10 [facility] Blood platelet mean volumeOr dered By: Dr. Kiran on 04-11-2023 Platelet mean volume (Bld) [Entitic vol] 9.7 fL 6.2-12.0 [facility] Determination of erythrocyte mean corpuscular volume (MCV)Ordered By: Dr. Kiran on 04-11-2023 MCV (RBC) [Entitic vol] 100.5 fL 81-99 [facility] Glucose Glucometer (dC) [M ass/Vol]Ordered By: Dr. Johnson on 04-11-2023 Glucose [Mass/Vol] 95 mg/dL 74-106 [facility] Comment on above: MANAGEMENT OF PATIEN T CARE PER NURSING PROTOCOL Hematocrit Auto (Bld) [Volum e fraction]Ordered By: Dr. Kiran on 04-11-2023 Hematocrit (Bld) [Volume fraction] 38.9 % 37-47 [facility] Laboratory - Chemistry and C hemistry - challengeOrdered By: Dr. Kiran on 04-11-2023 CO2 [Moles/Vol] 24.0 mmol/L 21.0-32.0 [facility] Urea nitrogen/Creatinine [Mass ratio] 23.2 mg/mg 10-20 [facility] Laboratory - Hematology and Cell countsOrdered By: Dr. Kiran on 04-11-2023 Erythrocyte distribution width (RBC) [Entitic vol] 47.8 fL 35.1-43.9 [facility] Erythrocyte distribution width (RBC) [Ratio] 13.1 % 11.6-14.6 [facility] Immature granulocytes/100 WBC (Bld) 0.300 % 0.0-0.9 [facility] Comment on above: IG% - Immature Granu locytes (promyelocytes, myelocytes and metamyelocytes) > 1% indicates that a LEFT SHIFT is Present. MCH (RBC) [Entitic mass] 32.6 pg 27.0-32.0 [facility] Nucleated RBC/100 WBC (Bld) [Ratio] 0 % 0-5 [facility] MCHC Auto (RBC) [Mass/Vol]Or dered By: Dr. Kiran on 04-11-2023 MCHC (RBC) [Mass/Vol] 32.4 g/dL 32-36 [facility] No Panel InformationOrdered By: Dr. Kiran on 04-11-2023 Estimated Creatinine Clearance Calc 74.03 ml/min [facility] Estimated GFR (MDRD) Amer 97 mL/min >60 [facility] Comment on above: GFR Calc Estimated GFR (MDRD) Non-Af Amer 80 mL/min >60 [facility] Comment on above: Non- GFR Calc Platelets bldOrdered By: Dr. Kiran on 04-11-2023 Platelets (Bld) [#/Vol] 246 10*3/uL 150-450 [facility] Serum or plasma calcium alphonso urement (mass/volume)Ordered By: Dr. Kiran on 04-11-2023 Calcium [Mass/Vol] 8.8 mg/dL 8.5-10.1 [facility] Serum or plasma creatinine m easurement (mass/volume)Ordered By: Dr. Kiran on 04-11-2023 Creatinine [Mass/Vol] 0.82 mg/dL 0.55-1.02 [facility] Comment on above: The validity of the calculated GFR & GFRAA in patients over 70 years has not been determined. Clinical correlation is essential. Serum or plasma urea nitroge n measurement (mass/volume)Ordered By: Dr. Kiran on 04-11-2023 Urea nitrogen [Mass/Vol] 19 mg/dL 7-18 [facility] Thin prep Papanicolaou smear with manual screeningOrdered By: Dr. Kiran on 04-11-2023 Thin prep Papanicolaou smear with manual screening 8 5-15 [facility] Basophil percentageOrdered B y: Dr. Jacobs on 04-10-2023 Chloride [Moles/Vol] 110 mmol/L 98-107 [facility] Glucose [Mass/Vol] 160 mg/dL 74-106 [facility] Comment on above: Fasting Glucose resu lt greater than or equal to 126 mg/dL suggests DIABETES MELLITUS per A.D.A. criteria. Lactate [Moles/Vol] 4.2 mmol/L 0.4-2.0 [facility] Comment on above: Critical Result(s) C alled at: 02:41:04 04/10/2023 by: Campos Levin TO [employer]. Results read back by same. Potassium [Moles/Vol] 4.8 mmol/L 3.5-5.1 [facility] Sodium [Moles/Vol] 140 mmol/L 136-145 [facility] Basophil percentage 0 SEEN /hpf 0-5 [facility] Bilirubin Test strip Ql (U)O rdered By: Dr. Jacobs on 04-10-2023 Bilirubin Ql (U) Negative Negative [facility] HCO3 (BldA) [Moles/Vol]Order ed By: Dr. Jacobs on 04-10-2023 HCO3 (Bld) [Moles/Vol] 20 mmol/L 22-26 [facility] Ketones Test strip Ql (U)Ord ered By: Dr. Jacobs on 04-10-2023 Ketones Ql (U) Negative Negative [facility] Laboratory - Chemistry and C hemistry - challengeOrdered By: Dr. Jacobs on 04-10-2023 CO2 [Moles/Vol] 19.0 mmol/L 21.0-32.0 [facility] Urea nitrogen/Creatinine [Mass ratio] 15.8 mg/mg 10-20 [facility] CO2 [Moles/Vol] 21 mmol/L 23-33 [facility] Laboratory - Microbiology an d Antimicrobial susceptibilityOrdered By: David Jacobs on 04-10-2023 Bacteria identified Cx Nom (Bld) No growth in 5 days. [facility] Mucus LM Ql (Urine sed)Order ed By: Dr. Jacobs on 04-10-2023 Mucus Ql (Urine sed) 0 SEEN /hpf [facility] Nitrite Test strip Ql (U)Ord ered By: Dr. Jacobs on 04-10-2023 Nitrite Ql (U) Negative Negative [facility] No Panel InformationOrdered By: Dr. Jacobs on 04-10-2023 Estimated Creatinine Clearance Calc 60.10 ml/min [facility] Estimated GFR (MDRD) Amer 76 mL/min >60 [facility] Comment on above: GFR Calc Estimated GFR (MDRD) Non-Af Amer 63 mL/min >60 [facility] Comment on above: Non- GFR Calc Troponin I High Sensitivity < 3 pg/mL 3.0-54.0 [facility] Comment on above: Please Note: New Miri t Units and Gender Specific Reference Ranges. For more information see Policy Stat Procedure Wilsey High Sensitivity Troponin (TNIH) and attachments. Bed Mix Venous Bld PCO2 at Pat Temp 40.5 mmHg 41-51 [facility] Blood Gas Specimen Type GELACIO [facility] Oxygen Delivery Device Room Air [facility] Venous Blood Base Excess -7 mmol/L -1.0-3.5 [facility] No Panel InformationOrdered By: Dr. Kiran on 04-10-2023 Troponin I High Sensitivity < 3 pg/mL 3.0-54.0 [facility] Comment on above: Please Note: New Miri t Units and Gender Specific Reference Ranges. For more information see Policy Stat Procedure Wilsey High Sensitivity Troponin (TNIH) and attachments. PO2 venousOrdered By: Dr. Jose wood on 04-10-2023 Oxygen (BldV) [Partial pressure] 54 mm[Hg] 25-40 [facility] Protein Test strip Ql (U)Ord ered By: Dr. Jacobs on 04-10-2023 Protein Ql (U) Negative Negative [facility] Serum or plasma acetone alphonso urement (mass/volume)Ordered By: Dr. Jacobs on 04-10-2023 Acetone [Mass/Vol] Negative NEG [facility] Serum or plasma calcium alphonso urement (mass/volume)Ordered By: Dr. Jacobs on 04-10-2023 Calcium [Mass/Vol] 7.3 mg/dL 8.5-10.1 [facility] Serum or plasma creatinine m easurement (mass/volume)Ordered By: Dr. Jacobs on 04-10-2023 Creatinine [Mass/Vol] 1.01 mg/dL 0.55-1.02 [facility] Comment on above: The validity of the calculated GFR & GFRAA in patients over 70 years has not been determined. Clinical correlation is essential. Serum or plasma urea nitroge n measurement (mass/volume)Ordered By: Dr. Jacobs on 04-10-2023 Urea nitrogen [Mass/Vol] 16 mg/dL 7-18 [facility] Squamous epithelial cells de tection in urine sediment by light microscopyOrdered By: Dr. Jacobs on 04-10-2023 Epithelial cells.squamous LM Ql (Urine sed) 0 SEEN /hpf 5-10 [facility] Thin prep Papanicolaou smear with manual screeningOrdered By: Dr. Jacobs on 04-10-2023 Thin prep Papanicolaou smear with manual screening 11 5-15 [facility] Urine blood detectionOrdered By: Dr. Jacobs on 04-10-2023 RBC Ql (U) Negative Negative [facility] RBC Ql (U) 0 SEEN /hpf 0-5 [facility] Urine clarityOrdered By: Dr. Jacobs on 04-10-2023 Clarity (U) Clear Clear [facility] Urine color determinationOrd ered By: Dr. Jacobs on 04-10-2023 Color (U) Yellow Yellow [facility] Urine glucose detectionOrder ed By: Dr. Jacobs on 04-10-2023 Glucose Ql (U) 1000 mg/dl Normal [facility] Urine leukocyte esterase det ection by dipstickOrdered By: Dr. Jacobs on 04-10-2023 Leukocyte esterase Test strip Ql (U) Negative Negative [facility] Urine pHOrdered By: Dr. Caren garza on 04-10-2023 pH (U) 6.5 [pH] 5.0 - 8.0 [facility] Urine sediment bacteria coun t by microscopy (number/high power field)Ordered By: Dr. Jacobs on 04-10-2023 Bacteria LM.HPF (Urine sed) [#/Area] 0 /[HPF] None Seen [facility] Urine specific gravity measu rementOrdered By: Dr. Jacobs on 04-10-2023 Specific gravity (U) [Rel density] 1.010 1.002-1.030 [facility] Urobilinogen Auto test strip Ql (U)Ordered By: Dr. Jacobs on 04-10-2023 Urobilinogen Ql (U) Normal mg/dl Normal [facility] Vital signsOrdered By: Dr. Del mackay on 04-10-2023 Oxygen saturation in Blood 84 % 50-70 [facility] pH measurementOrdered By: Dr Jael Jacobs on 04-10-2023 pH (Unsp spec) 7.29 [pH] 7.32-7.42 [facility] [facility] Absolute lymphocyte countOrd ered By: Dr. Jacobs on 04-09-2023 Lymphocytes Auto (Unsp spec) [#/Vol] 0.91 10*3/uL 0.83-4.51 [facility] Basophil percentageOrdered B y: Dr. Jacobs on 04-09-2023 Basophils/100 WBC (Bld) 0.2 % 0-1 [facility] Eosinophils/100 WBC (Bld) 0.4 % 0-5 [facility] Neutrophils (Bld) [#/Vol] 6.8 10*3/uL 2.0-7.7 [facility] Neutrophils/100 WBC (Bld) 85.1 % 47-70 [facility] WBC (Bld) [#/Vol] 8.0 10*3/uL 4.4-11.0 [facility] Blood erythrocytes count (nu mber/volume)Ordered By: Dr. Jacobs on 04-09-2023 RBC (Bld) [#/Vol] 3.87 10*6/uL 4.2-5.4 [facility] Blood hemoglobin measurement (mass/volume)Ordered By: Dr. Jacobs on 04-09-2023 Hemoglobin (Bld) [Mass/Vol] 12.5 g/dL 12.0-15.0 [facility] Blood lymphocytes/100 leukoc ytesOrdered By: Dr. Jacobs on 04-09-2023 Lymphocytes/100 WBC (Bld) 11.3 % 19-41 [facility] Blood monocytes/100 leukocyt esOrdered By: Dr. Jacobs on 04-09-2023 Monocytes/100 WBC (Bld) 1.6 % 0-10 [facility] Blood platelet mean volumeOr dered By: Dr. Jacobs on 04-09-2023 Platelet mean volume (Bld) [Entitic vol] 10.0 fL 6.2-12.0 [facility] Determination of erythrocyte mean corpuscular volume (MCV)Ordered By: Dr. Jacobs on 04-09-2023 MCV (RBC) [Entitic vol] 99.5 fL 81-99 [facility] Hematocrit Auto (Bld) [Volum e fraction]Ordered By: Dr. Jacobs on 04-09-2023 Hematocrit (Bld) [Volume fraction] 38.5 % 37-47 [facility] Laboratory - Hematology and Cell countsOrdered By: Dr. Jacobs on 04-09-2023 Erythrocyte distribution width (RBC) [Entitic vol] 47.4 fL 35.1-43.9 [facility] Erythrocyte distribution width (RBC) [Ratio] 13.0 % 11.6-14.6 [facility] Immature granulocytes/100 WBC (Bld) 1.400 % 0.0-0.9 [facility] Comment on above: IG% - Immature Granu locytes (promyelocytes, myelocytes and metamyelocytes) > 1% indicates that a LEFT SHIFT is Present. MCH (RBC) [Entitic mass] 32.3 pg 27.0-32.0 [facility] Nucleated RBC/100 WBC (Bld) [Ratio] 0 % 0-5 [facility] MCHC Auto (RBC) [Mass/Vol]Or dered By: Dr. Jacobs on 04-09-2023 MCHC (RBC) [Mass/Vol] 32.5 g/dL 32-36 [facility] No Panel InformationOrdered By: Dr. Jacobs on 04-09-2023 D-Dimer Quantitative (PE/DVT) < 0.27 FEU/ug/m 0.27-0.49 [facility] Comment on above: NORMAL D-Dimer level (<0.50) indicates no DVT or PE. Platelets bldOrdered By: Dr. Jacobs on 04-09-2023 Platelets (Bld) [#/Vol] 298 10*3/uL 150-450 [facility] Absolute lymphocyte countOrd ered By: Dr. Gaviria on 03-22-2023 Lymphocytes Auto (Unsp spec) [#/Vol] 2.49 10*3/uL 0.83-4.51 [facility] Amorphous sediment detection in urine sediment by light microscopyOrdered By: Dr. Gaviria on 03-22-2023 Amorphous sediment LM Ql (Urine sed) 1+ URATE [facility] Basophil percentageOrdered B y: Dr. Gaviria on 03-22-2023 Basophil percentage 5-10 SEEN /hpf 0-5 [facility] Basophils/100 WBC (Bld) 0.5 % 0-1 [facility] Bilirubin [Mass/Vol] 0.30 mg/dL 0.20-1.00 [facility] Comment on above: For patients on eltr ombopag therapy, use of Dimension Wilsey TBIL is not recommended. Chloride [Moles/Vol] 105 mmol/L 98-107 [facility] Eosinophils/100 WBC (Bld) 2.0 % 0-5 [facility] Glucose [Mass/Vol] 146 mg/dL 74-106 [facility] Comment on above: Fasting Glucose resu lt greater than or equal to 126 mg/dL suggests DIABETES MELLITUS per A.D.A. criteria. Lactate [Moles/Vol] 1.4 mmol/L 0.4-2.0 [facility] Neutrophils (Bld) [#/Vol] 7.1 10*3/uL 2.0-7.7 [facility] Neutrophils/100 WBC (Bld) 64.4 % 47-70 [facility] Potassium [Moles/Vol] 4.4 mmol/L 3.5-5.1 [facility] Protein [Mass/Vol] 7.7 g/dL 6.4-8.2 [facility] Sodium [Moles/Vol] 133 mmol/L 136-145 [facility] WBC (Bld) [#/Vol] 11.0 10*3/uL 4.4-11.0 [facility] Bilirubin Test strip Ql (U)O rdered By: Dr. Gaviria on 03-22-2023 Bilirubin Ql (U) Negative Negative [facility] Blood erythrocytes count (nu mber/volume)Ordered By: Dr. Gaviria on 03-22-2023 RBC (Bld) [#/Vol] 4.25 10*6/uL 4.2-5.4 [facility] Blood hemoglobin measurement (mass/volume)Ordered By: Dr. Gaviria on 03-22-2023 Hemoglobin (Bld) [Mass/Vol] 13.6 g/dL 12.0-15.0 [facility] Blood lymphocytes/100 leukoc ytesOrdered By: Dr. Gaviria on 03-22-2023 Lymphocytes/100 WBC (Bld) 22.7 % 19-41 [facility] Blood monocytes/100 leukocyt esOrdered By: Dr. Gaviria on 03-22-2023 Monocytes/100 WBC (Bld) 9.9 % 0-10 [facility] Blood platelet mean volumeOr dered By: Dr. Gaviria on 03-22-2023 Platelet mean volume (Bld) [Entitic vol] 9.7 fL 6.2-12.0 [facility] Determination of erythrocyte mean corpuscular volume (MCV)Ordered By: Dr. Gaviria on 03-22-2023 MCV (RBC) [Entitic vol] 97.6 fL 81-99 [facility] Hematocrit Auto (Bld) [Volum e fraction]Ordered By: Dr. Gaviria on 03-22-2023 Hematocrit (Bld) [Volume fraction] 41.5 % 37-47 [facility] Ketones Test strip Ql (U)Ord ered By: Dr. Gaviria on 03-22-2023 Ketones Ql (U) Negative Negative [facility] Laboratory - Chemistry and C hemistry - challengeOrdered By: Dr. Gaviria on 03-22-2023 ALP [Catalytic activity/Vol] 71 U/L 45-117 [facility] ALT [Catalytic activity/Vol] 33 U/L 13-56 [facility] CO2 [Moles/Vol] 24.0 mmol/L 21.0-32.0 [facility] Globulin (S) [Mass/Vol] 3.7 g/dL 2.2-4.2 [facility] Urea nitrogen/Creatinine [Mass ratio] 10.8 mg/mg 10-20 [facility] Laboratory - Hematology and Cell countsOrdered By: Dr. Gaviria on 03-22-2023 Erythrocyte distribution width (RBC) [Entitic vol] 46.9 fL 35.1-43.9 [facility] Erythrocyte distribution width (RBC) [Ratio] 13.1 % 11.6-14.6 [facility] Immature granulocytes/100 WBC (Bld) 0.500 % 0.0-0.9 [facility] Comment on above: IG% - Immature Granu locytes (promyelocytes, myelocytes and metamyelocytes) > 1% indicates that a LEFT SHIFT is Present. MCH (RBC) [Entitic mass] 32.0 pg 27.0-32.0 [facility] Nucleated RBC/100 WBC (Bld) [Ratio] 0 % 0-5 [facility] MCHC Auto (RBC) [Mass/Vol]Or dered By: Dr. Gaviria on 03-22-2023 MCHC (RBC) [Mass/Vol] 32.8 g/dL 32-36 [facility] Mucus LM Ql (Urine sed)Order ed By: Dr. Gaviria on 03-22-2023 Mucus Ql (Urine sed) 0 SEEN /hpf [facility] Nitrite Test strip Ql (U)Ord ered By: Dr. Gaviria on 03-22-2023 Nitrite Ql (U) Negative Negative [facility] No Panel InformationOrdered By: Dr. Gaviria on 03-22-2023 Estimated Creatinine Clearance Calc 36.74 ml/min [facility] Estimated GFR (MDRD) Amer 43 mL/min >60 [facility] Comment on above: GFR Calc Estimated GFR (MDRD) Non-Af Amer 35 mL/min >60 [facility] Comment on above: Non- GFR Calc Platelets bldOrdered By: Dr. Gaviria on 03-22-2023 Platelets (Bld) [#/Vol] 316 10*3/uL 150-450 [facility] Protein Test strip Ql (U)Ord ered By: Dr. Gaviria on 03-22-2023 Protein Ql (U) Negative Negative [facility] Serum or plasma albumin alphonso urement (mass/volume)Ordered By: Dr. Gaviria on 03-22-2023 Albumin [Mass/Vol] 4.0 g/dL 3.2-5.0 [facility] Serum or plasma albumin/glob ulin mass ratioOrdered By: Dr. Gaviria on 03-22-2023 Albumin/Globulin [Mass ratio] 1.1 {ratio} 0.9-2.4 [facility] Serum or plasma calcium alphonso urement (mass/volume)Ordered By: Dr. Gaviria on 03-22-2023 Calcium [Mass/Vol] 8.9 mg/dL 8.5-10.1 [facility] Serum or plasma creatinine m easurement (mass/volume)Ordered By: Dr. Gaviria on 03-22-2023 Creatinine [Mass/Vol] 1.67 mg/dL 0.55-1.02 [facility] Comment on above: The validity of the calculated GFR & GFRAA in patients over 70 years has not been determined. Clinical correlation is essential. Serum or plasma urea nitroge n measurement (mass/volume)Ordered By: Dr. Gaviria on 03-22-2023 Urea nitrogen [Mass/Vol] 18 mg/dL 7-18 [facility] Squamous epithelial cells de tection in urine sediment by light microscopyOrdered By: Dr. Gaviria on 03-22-2023 Epithelial cells.squamous LM Ql (Urine sed) 0-5 SEEN /hpf 5-10 [facility] Thin prep Papanicolaou smear with manual screeningOrdered By: Dr. Gaviria on 03-22-2023 Thin prep Papanicolaou smear with manual screening 20 U/L 15-37 [facility] Thin prep Papanicolaou smear with manual screening 4 5-15 [facility] Urine blood detectionOrdered By: Dr. Gaviria on 03-22-2023 RBC Ql (U) Negative Negative [facility] RBC Ql (U) 0 SEEN /hpf 0-5 [facility] Urine clarityOrdered By: Dr. Gaviria on 03-22-2023 Clarity (U) Sl. Cloudy Clear [facility] Urine color determinationOrd ered By: Dr. Gaviria on 03-22-2023 Color (U) Yellow Yellow [facility] Urine glucose detectionOrder ed By: Dr. Gaviria on 03-22-2023 Glucose Ql (U) 1000 mg/dl Normal [facility] Urine leukocyte esterase det ection by dipstickOrdered By: Dr. Gaviria on 03-22-2023 Leukocyte esterase Test strip Ql (U) 100 /ul Negative [facility] Urine pHOrdered By: Dr. Shae ruelas on 03-22-2023 pH (U) 6.5 [pH] 5.0 - 8.0 [facility] Urine sediment bacteria coun t by microscopy (number/high power field)Ordered By: Dr. Gaviria on 03-22-2023 Bacteria LM.HPF (Urine sed) [#/Area] 0 /[HPF] None Seen [facility] Urine specific gravity measu rementOrdered By: Dr. Gaviria on 03-22-2023 Specific gravity (U) [Rel density] 1.005 1.002-1.030 [facility] Urobilinogen Auto test strip Ql (U)Ordered By: Dr. Gaviria on 03-22-2023 Urobilinogen Ql (U) Normal mg/dl Normal [facility] Laboratory - Microbiology an d Antimicrobial susceptibilityon 02-12-2023 SARS-CoV-2 (COVID-19) RNA ALLEY+probe Ql (Unsp spec) Not detected [facility] No Panel Informationon 02-12 Influenza Types A,B Rapid (Clinic) Not detected [facility] Absolute lymphocyte countOrd ered By: Dr. Jacobs on 01-21-2023 Lymphocytes Auto (Unsp spec) [#/Vol] 2.33 10*3/uL 0.83-4.51 [facility] Basophil percentageOrdered B y: Dr. Jacobs on 01-21-2023 Basophils/100 WBC (Bld) 0.5 % 0-1 [facility] Chloride [Moles/Vol] 103 mmol/L 98-107 [facility] Eosinophils/100 WBC (Bld) 2.6 % 0-5 [facility] Glucose [Mass/Vol] 262 mg/dL 74-106 [facility] Comment on above: Glucose result great er than or equal to 200 mg/dLsuggests DIABETES MELLITUS per A.D.A. criteria. Neutrophils (Bld) [#/Vol] 4.7 10*3/uL 2.0-7.7 [facility] Neutrophils/100 WBC (Bld) 59.7 % 47-70 [facility] Potassium [Moles/Vol] 3.6 mmol/L 3.5-5.1 [facility] Sodium [Moles/Vol] 138 mmol/L 136-145 [facility] WBC (Bld) [#/Vol] 7.9 10*3/uL 4.4-11.0 [facility] Blood erythrocytes count (nu mber/volume)Ordered By: Dr. Jacobs on 01-21-2023 RBC (Bld) [#/Vol] 4.32 10*6/uL 4.2-5.4 [facility] Blood hemoglobin measurement (mass/volume)Ordered By: Dr. Jacobs on 01-21-2023 Hemoglobin (Bld) [Mass/Vol] 13.8 g/dL 12.0-15.0 [facility] Blood lymphocytes/100 leukoc ytesOrdered By: Dr. Jacobs on 01-21-2023 Lymphocytes/100 WBC (Bld) 29.3 % 19-41 [facility] Blood monocytes/100 leukocyt esOrdered By: Dr. Jacobs on 01-21-2023 Monocytes/100 WBC (Bld) 7.6 % 0-10 [facility] Blood platelet mean volumeOr dered By: Dr. Jacobs on 01-21-2023 Platelet mean volume (Bld) [Entitic vol] 9.8 fL 6.2-12.0 [facility] Determination of erythrocyte mean corpuscular volume (MCV)Ordered By: Dr. Jacobs on 01-21-2023 MCV (RBC) [Entitic vol] 95.8 fL 81-99 [facility] Hematocrit Auto (Bld) [Volum e fraction]Ordered By: Dr. Jacobs on 01-21-2023 Hematocrit (Bld) [Volume fraction] 41.4 % 37-47 [facility] Laboratory - Chemistry and C hemistry - challengeOrdered By: Dr. Jacobs on 01-21-2023 CO2 [Moles/Vol] 27.0 mmol/L 21.0-32.0 [facility] Urea nitrogen/Creatinine [Mass ratio] 11.8 mg/mg 10-20 [facility] Laboratory - Hematology and Cell countsOrdered By: Dr. Jacobs on 01-21-2023 Erythrocyte distribution width (RBC) [Entitic vol] 44.4 fL 35.1-43.9 [facility] Erythrocyte distribution width (RBC) [Ratio] 12.7 % 11.6-14.6 [facility] Immature granulocytes/100 WBC (Bld) 0.300 % 0.0-0.9 [facility] Comment on above: IG% - Immature Granu locytes (promyelocytes, myelocytes and metamyelocytes) > 1% indicates that a LEFT SHIFT is Present. MCH (RBC) [Entitic mass] 31.9 pg 27.0-32.0 [facility] Nucleated RBC/100 WBC (Bld) [Ratio] 0 % 0-5 [facility] MCHC Auto (RBC) [Mass/Vol]Or dered By: Dr. Jacobs on 01-21-2023 MCHC (RBC) [Mass/Vol] 33.3 g/dL 32-36 [facility] No Panel InformationOrdered By: Dr. Jacobs on 01-21-2023 Troponin I High Sensitivity < 3 pg/mL 3.0-54.0 [facility] Comment on above: Please Note: New Miri t Units and Gender Specific Reference Ranges. For more information see Policy Stat Procedure Wilsey High Sensitivity Troponin (TNIH) and attachments. D-Dimer Quantitative (PE/DVT) < 0.27 FEU/ug/m 0.27-0.49 [facility] Comment on above: NORMAL D-Dimer level (<0.50) indicates no DVT or PE. Estimated Creatinine Clearance Calc 65.97 ml/min [facility] Estimated GFR (MDRD) Amer 83 mL/min >60 [facility] Comment on above: GFR Calc Estimated GFR (MDRD) Non-Af Amer 69 mL/min >60 [facility] Comment on above: Non- GFR Calc Platelets bldOrdered By: Dr. Jacobs on 01-21-2023 Platelets (Bld) [#/Vol] 314 10*3/uL 150-450 [facility] Serum or plasma calcium alphonso urement (mass/volume)Ordered By: Dr. Jacobs on 01-21-2023 Calcium [Mass/Vol] 8.9 mg/dL 8.5-10.1 [facility] Serum or plasma creatinine m easurement (mass/volume)Ordered By: Dr. Jacobs on 01-21-2023 Creatinine [Mass/Vol] 0.93 mg/dL 0.55-1.02 [facility] Comment on above: The validity of the calculated GFR & GFRAA in patients over 70 years has not been determined. Clinical correlation is essential. Serum or plasma urea nitroge n measurement (mass/volume)Ordered By: Dr. Jacobs on 01-21-2023 Urea nitrogen [Mass/Vol] 11 mg/dL 7-18 [facility] Thin prep Papanicolaou smear with manual screeningOrdered By: Dr. Jacobs on 01-21-2023 Thin prep Papanicolaou smear with manual screening 8 5-15 [facility] Absolute lymphocyte countOrd ered By: Dr. Kay on 11-19-2022 Lymphocytes Auto (Unsp spec) [#/Vol] 2.69 10*3/uL 0.83-4.51 [facility] Basophil percentageOrdered B y: Dr. Kay on 11-19-2022 Basophils/100 WBC (Bld) 0.4 % 0-1 [facility] Chloride [Moles/Vol] 104 mmol/L 98-107 [facility] Eosinophils/100 WBC (Bld) 2.4 % 0-5 [facility] Glucose [Mass/Vol] 194 mg/dL 74-106 [facility] Comment on above: Fasting Glucose resu lt greater than or equal to 126 mg/dL suggests DIABETES MELLITUS per A.D.A. criteria. Neutrophils (Bld) [#/Vol] 1.7 10*3/uL 2.0-7.7 [facility] Neutrophils/100 WBC (Bld) 33.7 % 47-70 [facility] Potassium [Moles/Vol] 3.4 mmol/L 3.5-5.1 [facility] Sodium [Moles/Vol] 138 mmol/L 136-145 [facility] WBC (Bld) [#/Vol] 5.1 10*3/uL 4.4-11.0 [facility] Basophil percentageOrdered B y: Dr. Piña on 11-19-2022 Cholesterol [Mass/Vol] 144 mg/dL <200 [facility] Comment on above: <200 mg/dL Desirable 200-240 mg/dL Borderline >240 mg/dL High Risk Triglyceride [Mass/Vol] 227 mg/dL <199 [facility] Comment on above: The drugs N-Acetylcy steine and Metamizole may falsely depress this assay.Serum Triglycerides Reference Interval Normal <150 mg/dL Borderline high 150 - 199 mg/dL High 200 - 499 mg/dL Very High > or = 500 mg/dL Beta hCG serum qualOrdered B y: Dr. Piña on 11-19-2022 Beta HCG ( test) Ql Negative [facility] Blood erythrocytes count (nu mber/volume)Ordered By: Dr. Kay on 11-19-2022 RBC (Bld) [#/Vol] 3.74 10*6/uL 4.2-5.4 [facility] Blood hemoglobin measurement (mass/volume)Ordered By: Dr. Kay on 11-19-2022 Hemoglobin (Bld) [Mass/Vol] 12.0 g/dL 12.0-15.0 [facility] Blood lymphocytes/100 leukoc ytesOrdered By: Dr. Kay on 11-19-2022 Lymphocytes/100 WBC (Bld) 52.7 % 19-41 [facility] Blood monocytes/100 leukocyt esOrdered By: Dr. Kay on 11-19-2022 Monocytes/100 WBC (Bld) 10.6 % 0-10 [facility] Blood platelet mean volumeOr dered By: Dr. Kay on 11-19-2022 Platelet mean volume (Bld) [Entitic vol] 9.5 fL 6.2-12.0 [facility] Determination of erythrocyte mean corpuscular volume (MCV)Ordered By: Dr. Kay on 11-19-2022 MCV (RBC) [Entitic vol] 92.2 fL 81-99 [facility] Glucose Glucometer (BldC) [M ass/Vol]Ordered By: Dr. Kay on 11-19-2022 Glucose [Mass/Vol] 295 mg/dL 74-106 [facility] Comment on above: MANAGEMENT OF PATIEN T CARE PER NURSING PROTOCOL Hematocrit Auto (Bld) [Volum e fraction]Ordered By: Dr. Kay on 11-19-2022 Hematocrit (Bld) [Volume fraction] 34.5 % 37-47 [facility] Laboratory - Chemistry and C hemistry - challengeOrdered By: Dr. Kay on 11-19-2022 CO2 [Moles/Vol] 28.0 mmol/L 21.0-32.0 [facility] Urea nitrogen/Creatinine [Mass ratio] 14.3 mg/mg 10-20 [facility] Laboratory - CoagulationOrde red By: Dr. Tavares on 11-19-2022 aPTT Coag (Bld) [Time] 63.5 s 24.1-36.2 [facility] Laboratory - Hematology and Cell countsOrdered By: Dr. Kay on 11-19-2022 Erythrocyte distribution width (RBC) [Entitic vol] 41.3 fL 35.1-43.9 [facility] Erythrocyte distribution width (RBC) [Ratio] 12.2 % 11.6-14.6 [facility] Immature granulocytes/100 WBC (Bld) 0.200 % 0.0-0.9 [facility] Comment on above: IG% - Immature Granu locytes (promyelocytes, myelocytes and metamyelocytes) > 1% indicates that a LEFT SHIFT is Present. MCH (RBC) [Entitic mass] 32.1 pg 27.0-32.0 [facility] Nucleated RBC/100 WBC (Bld) [Ratio] 0 % 0-5 [facility] MCHC Auto (RBC) [Mass/Vol]Or dered By: Dr. Kay on 11-19-2022 MCHC (RBC) [Mass/Vol] 34.8 g/dL 32-36 [facility] No Panel InformationOrdered By: Dr. Kay on 11-19-2022 Estimated Creatinine Clearance Calc 97.38 ml/min [facility] Estimated GFR (MDRD) Amer 131 mL/min >60 [facility] Comment on above: GFR Calc Estimated GFR (MDRD) Non-Af Amer 108 mL/min >60 [facility] Comment on above: Non- GFR Calc No Panel InformationOrdered By: Dr. Piña on 11-19-2022 Troponin I High Sensitivity 307 pg/mL 3.0-54.0 [facility] Comment on above: Critical Result(s) C alled at: 04:53:08 11/19/2022 by: Kannan BRAUN RN ([facility]) Results read back by same. Please Note: New Test Units and Gender Specific Reference Ranges. For more information see Policy Stat Procedure [facility] High Sensitivity Troponin (TNIH) and attachments. Platelets bldOrdered By: Dr. Kay on 11-19-2022 Platelets (Bld) [#/Vol] 194 10*3/uL 150-450 [facility] Serum or plasma calcium alphonso urement (mass/volume)Ordered By: Dr. Kay on 11-19-2022 Calcium [Mass/Vol] 7.7 mg/dL 8.5-10.1 [facility] Serum or plasma cholesterol in HDL measurement (mass/volume)Ordered By: Dr. Piña on 11-19-2022 Cholesterol in HDL [Mass/Vol] 42 mg/dL >40 [facility] Comment on above: The drugs N-Acetylcy steine and Metamizole may falsely depress this assay. Reference Range HDL <40 mg/dL Low HDL Cholesterol HDL >or= 60 mg/dL High HDL Cholesterol Serum or plasma cholesterol in VLDL measurement (mass/volume)Ordered By: Dr. Piña on 11-19-2022 Cholesterol in VLDL [Mass/Vol] 45 mg/dL 5-40 [facility] Serum or plasma creatinine m easurement (mass/volume)Ordered By: Dr. Kay on 11-19-2022 Creatinine [Mass/Vol] 0.63 mg/dL 0.55-1.02 [facility] Comment on above: The validity of the calculated GFR & GFRAA in patients over 70 years has not been determined. Clinical correlation is essential. Serum or plasma low density lipoprotein (LDL) cholesterol measurement (mass/volume)Ordered By: Dr. Piña on 11-19-2022 Cholesterol in LDL [Mass/Vol] 57 mg/dL 0-130 [facility] Serum or plasma urea nitroge n measurement (mass/volume)Ordered By: Dr. Kay on 11-19-2022 Urea nitrogen [Mass/Vol] 9 mg/dL 7-18 [facility] Thin prep Papanicolaou smear with manual screeningOrdered By: Dr. Kay on 11-19-2022 Thin prep Papanicolaou smear with manual screening 6 5-15 [facility] Basophil percentageOrdered B y: Dr. Piña on 11-18-2022 Bilirubin [Mass/Vol] 0.50 mg/dL 0.20-1.00 [facility] Comment on above: For patients on eltr ombopag therapy, use of Dimension Wilsey TBIL is not recommended. Protein [Mass/Vol] 7.4 g/dL 6.4-8.2 [facility] Direct bilirubinOrdered By: Dr. Piña on 11-18-2022 Bilirubin.direct [Mass/Vol] 0.13 mg/dL 0.00-0.30 [facility] INR in Blood by Coagulation assayOrdered By: Dr. Tavares on 11-18-2022 INR Coag (Bld) [Relative time] 1.0 {INR} [facility] [facility] - Chemistry and C hemistry - challengeOrdered By: Dr. Piña on 11-18-2022 ALP [Catalytic activity/Vol] 82 U/L 45-117 [facility] ALT [Catalytic activity/Vol] 33 U/L 13-56 [facility] Globulin (S) [Mass/Vol] 4.0 g/dL 2.2-4.2 [facility] Laboratory - CoagulationOrde red By: Dr. Tavares on 11-18-2022 PT Coag (PPP) [Time] 12.9 s 11.7-14.9 [facility] No Panel InformationOrdered By: Dr. Tavares on 11-18-2022 D-Dimer Quantitative (PE/DVT) 0.40 FEU/ug/m 0.27-0.49 [facility] Comment on above: NORMAL D-Dimer level (<0.50) indicates no DVT or PE. Serum or plasma albumin alphonso urement (mass/volume)Ordered By: Dr. Piña on 11-18-2022 Albumin [Mass/Vol] 3.4 g/dL 3.2-5.0 [facility] Thin prep Papanicolaou smear with manual screeningOrdered By: Dr. Piña on 11-18-2022 Thin prep Papanicolaou smear with manual screening 26 U/L 15-37 [facility] Absolute lymphocyte counton 09-05-2022 Lymphocytes Auto (Unsp spec) [#/Vol] 3.03 10*3/uL 0.83-4.51 [facility] Work Phone: Basophil percentageon 2021 Basophils/100 WBC (Bld) 0.5 % 0-1 [facility] Work Phone: Chloride [Moles/Vol] 105 mmol/L 98-107 [facility]: Eosinophils/100 WBC (Bld) 3.3 % 0-5 [facility] Work Phone: Glucose [Mass/Vol] 246 mg/dL 74-106 [facility] Work Phone: Comment on above: Glucose result great er than or equal to 200 mg/dLsuggests DIABETES MELLITUS per A.D.A. criteria. Neutrophils (Bld) [#/Vol] 3.8 10*3/uL 2.0-7.7 [facility] Work Phone: Neutrophils/100 WBC (Bld) 48.3 % 47-70 [facility] Work Phone: Potassium [Moles/Vol] 3.6 mmol/L 3.5-5.1 [facility] Work Phone: Sodium [Moles/Vol] 142 mmol/L 136-145 [facility] Work Phone: WBC (Bld) [#/Vol] 7.8 10*3/uL 4.4-11.0 [facility] Work Phone: [phone] Blood erythrocytes count (nu mber/volume)on 09-05-2022 RBC (Bld) [#/Vol] 4.17 10*6/uL 4.2-5.4 [facility]: Blood hemoglobin measurement (mass/volume)on 09-05-2022 Hemoglobin (Bld) [Mass/Vol] 13.1 g/dL 12.0-15.0 [facility] Work Phone: Blood lymphocytes/100 leukoc yteson 09-05-2022 Lymphocytes/100 WBC (Bld) 39.0 % 19-41 [facility] Work Phone: Blood monocytes/100 leukocyt eson 09-05-2022 Monocytes/100 WBC (Bld) 8.5 % 0-10 [facility] Work Phone: Blood platelet mean volumeon 09-05-2022 Platelet mean volume (Bld) [Entitic vol] 9.6 fL 6.2-12.0 [facility] Work Phone: Determination of erythrocyte mean corpuscular volume (MCV)on 09-05-2022 MCV (RBC) [Entitic vol] 92.1 fL 81-99 [facility] Work Phone: Hematocrit Auto (Bld) [Volum e fraction]on 09-05-2022 Hematocrit (Bld) [Volume fraction] 38.4 % 37-47 [facility] Work Phone: Laboratory - Chemistry and C hemistry - challengeon 09-05-2022 CO2 [Moles/Vol] 27.0 mmol/L 21.0-32.0 [facility] Work Phone: Urea nitrogen/Creatinine [Mass ratio] 16.7 mg/mg 10-20 [facility] Work Phone: Laboratory - Hematology and Cell countson 09-05-2022 Erythrocyte distribution width (RBC) [Entitic vol] 42.3 fL 35.1-43.9 [facility] Work Phone: Erythrocyte distribution width (RBC) [Ratio] 12.7 % 11.6-14.6 [facility] Work Phone: Immature granulocytes/100 WBC (Bld) 0.400 % 0.0-0.9 [facility] Work Phone: Comment on above: IG% - Immature Granu locytes (promyelocytes, myelocytes and metamyelocytes) > 1% indicates that a LEFT SHIFT is Present. MCH (RBC) [Entitic mass] 31.4 pg 27.0-32.0 [facility] Work Phone: Nucleated RBC/100 WBC (Bld) [Ratio] 0 % 0-5 [facility] Work Phone: MCHC Auto (RBC) [Mass/Vol]on 09-05-2022 MCHC (RBC) [Mass/Vol] 34.1 g/dL 32-36 [facility] Work Phone: No Panel Informationon 09-05 Estimated Creatinine Clearance Calc 78.65 ml/min [facility] Work Phone: Estimated GFR (MDRD) Amer 103 mL/min >60 [facility] Work Phone: Comment on above: GFR Calc Estimated GFR (MDRD) Non-Af Amer 85 mL/min >60 [facility] Work Phone: Comment on above: Non- GFR Calc Ethyl Alcohol Level 237.0 mg/dL [facility] Work Phone: Comment on above: The serum:whole bloo d ethanol ratio is approximately 1.14and varies slightly with hematocrit. Medical Alcohol reference interval and critical value innon-tolerant individuals; 50 - 100 Impairment 100 Intoxication 100 - 250 Severe Poisoning 250 - 400 Deep/possible fatal coma Platelets bldon 09-05-2022 Platelets (Bld) [#/Vol] 318 10*3/uL 150-450 [facility] Work Phone: Serum or plasma calcium alphonso urement (mass/volume)on 09-05-2022 Calcium [Mass/Vol] 8.8 mg/dL 8.5-10.1 [facility] Work Phone: Serum or plasma creatinine m easurement (mass/volume)on 09-05-2022 Creatinine [Mass/Vol] 0.78 mg/dL 0.55-1.02 [facility] Work Phone: Comment on above: The validity of the calculated GFR & GFRAA in patients over 70 years has not been determined. Clinical correlation is essential. Serum or plasma urea nitroge n measurement (mass/volume)on 09-05-2022 Urea nitrogen [Mass/Vol] 13 mg/dL 7-18 [facility] Work Phone: Thin prep Papanicolaou smear with manual screeningon 09-05-2022 Thin prep Papanicolaou smear with manual screening 10 5-15 [facility] Work Phone: XR HIP GENERAL 3V PELV/AP/LA T LEFTon 07-21-2022 [facility] XR Pelvis and Hip - left AP and Lateral frogon 07-21-2022 IMPRESSION: Negative pelvis and left hip. Dog Pound Attendant: PSCB Transcribe Date/Time: Jul 21 2022 7:27P Dictated by : BETINA MAGANA MD This examination was interpreted and the report reviewed and electronically signed by: BETINA MAGANA MD on Jul 21 2022 7:29PM [facility] * * *Final Report* [...] fracture or dislocation. DIVISION OF RADIOLOGY Provider, [facility] - 07/21/2022 * * *Final Report* * [...] IMPRESSION IMPRESSION: Negative pelvis and left hip. Dog Pound Attendant: PSCB Transcribe Date/Time: Jul 21 2022 7:27P Dictated by : BETINA MAGANA MD This examination was interpreted and the report reviewed and electronically signed by: BETINA MAGANA MD on Jul 21 2022 7:29PM EST [facility] Radiology Study observation (narrative) Aric gordon [facility] XR Pelvis and Hip - left AP and Lateral frogOrdered By: Ccf Provider on 07-21-2022 [facility] Laboratory - Microbiology an d Antimicrobial susceptibilityon 05-31-2022 SARS-CoV-2 (COVID-19) RNA ALLEY+probe Ql (Unsp spec) Not detected [facility] Work Phone: Absolute lymphocyte counton 02-22-2022 Lymphocytes Auto (Unsp spec) [#/Vol] 2.29 10*3/uL 0.83-4.51 [facility] Work Phone: Basophil percentageon 2021 Basophils/100 WBC (Bld) 0.6 % 0-1 [facility] Work Phone: Chloride [Moles/Vol] 103 mmol/L 98-107 [facility] Work Phone: Eosinophils/100 WBC (Bld) 4.7 % 0-5 [facility] Work Phone: Glucose [Mass/Vol] 207 mg/dL 74-106 [facility] Work Phone: Comment on above: Glucose result great er than or equal to 200 mg/dLsuggests DIABETES MELLITUS per A.D.A. criteria. Neutrophils (Bld) [#/Vol] 3.2 10*3/uL 2.0-7.7 [facility] Work Phone: Neutrophils/100 WBC (Bld) 49.0 % 47-70 [facility] Work Phone: Potassium [Moles/Vol] 3.6 mmol/L 3.5-5.1 [facility] Work Phone: Sodium [Moles/Vol] 135 mmol/L 136-145 [facility] Work Phone: WBC (Bld) [#/Vol] 6.6 10*3/uL 4.4-11.0 [facility] Work Phone: Blood erythrocytes count (nu mber/volume)on 02-22-2022 RBC (Bld) [#/Vol] 4.50 10*6/uL 4.2-5.4 [facility] Work Phone: Blood hemoglobin measurement (mass/volume)on 02-22-2022 Hemoglobin (Bld) [Mass/Vol] 13.8 g/dL 12.0-15.0 [facility] Work Phone: Blood lymphocytes/100 leukoc yteson 02-22-2022 Lymphocytes/100 WBC (Bld) 34.9 % 19-41 [facility] Work Phone: Blood monocytes/100 leukocyt eson 02-22-2022 Monocytes/100 WBC (Bld) 10.2 % 0-10 [facility] Work Phone: Blood platelet mean volumeon 02-22-2022 Platelet mean volume (Bld) [Entitic vol] 10.3 fL 6.2-12.0 [facility] Work Phone: Determination of erythrocyte mean corpuscular volume (MCV)on 02-22-2022 MCV (RBC) [Entitic vol] 88.9 fL 81-99 [facility] Work Phone: Hematocrit Auto (Bld) [Volum e fraction]on 02-22-2022 Hematocrit (Bld) [Volume fraction] 40.0 % 37-47 [facility] Work Phone: Laboratory - Chemistry and C hemistry - challengeon 02-22-2022 CO2 [Moles/Vol] 27.0 mmol/L 21.0-32.0 [facility] Work Phone: Urea nitrogen/Creatinine [Mass ratio] 12.3 mg/mg 10-20 [facility] Work Phone: Laboratory - Hematology and Cell countson 02-22-2022 Erythrocyte distribution width (RBC) [Entitic vol] 39.8 fL 35.1-43.9 [facility] Work Phone: Erythrocyte distribution width (RBC) [Ratio] 12.2 % 11.6-14.6 [facility] Work Phone: Immature granulocytes/100 WBC (Bld) 0.600 % 0.0-0.9 [facility] Work Phone: Comment on above: IG% - Immature Granu locytes (promyelocytes, myelocytes and metamyelocytes) > 1% indicates that a LEFT SHIFT is Present. MCH (RBC) [Entitic mass] 30.7 pg 27.0-32.0 [facility] Work Phone: Nucleated RBC/100 WBC (Bld) [Ratio] 0 % 0-5 [facility] Work Phone: MCHC Auto (RBC) [Mass/Vol]on 02-22-2022 MCHC (RBC) [Mass/Vol] 34.5 g/dL 32-36 [facility] Work Phone: No Panel Informationon 02-22 D-Dimer Quantitative (PE/DVT) < 0.27 FEU/ug/m 0.27-0.49 [facility] Work Phone: Comment on above: NORMAL D-Dimer level (<0.50) indicates no DVT or PE. Estimated Creatinine Clearance Calc 84.92 ml/min [facility] Work Phone: Estimated GFR (MDRD) Amer 111 mL/min >60 [facility] Work Phone: Comment on above: GFR Calc Estimated GFR (MDRD) Non-Af Amer 91 mL/min >60 [facility] Work Phone: Comment on above: Non- GFR Calc Troponin I High Sensitivity < 3 pg/mL 3.0-54.0 [facility] Work Phone: Comment on above: Please Note: New Miri t Units and Gender Specific Reference Ranges. For more information see Policy Stat Procedure Wilsey High Sensitivity Troponin (TNIH) and attachments. Platelets bldon 02-22-2022 Platelets (Bld) [#/Vol] 311 10*3/uL 150-450 [facility] Work Phone: Serum or plasma calcium alphonso urement (mass/volume)on 02-22-2022 Calcium [Mass/Vol] 9.4 mg/dL 8.5-10.1 [facility] Work Phone: Serum or plasma creatinine m easurement (mass/volume)on 02-22-2022 Creatinine [Mass/Vol] 0.73 mg/dL 0.55-1.02 [facility] Work Phone: Comment on above: The validity of the calculated GFR & GFRAA in patients over 70 years has not been determined. Clinical correlation is essential. Serum or plasma urea nitroge n measurement (mass/volume)on 02-22-2022 Urea nitrogen [Mass/Vol] 9 mg/dL 7-18 [facility] Work Phone: Thin prep Papanicolaou smear with manual screeningon 02-22-2022 Thin prep Papanicolaou smear with manual screening 5 5-15 [facility] Work Phone: ALCOHOLon 06-10-2021 ALCOHOL Canceled Normal [facility] Comment on above: Order Comment: TEST ALCOHOL WAS CANCELLED, 06/10/2021 20:44 Result Comment: FOR MEDICAL USE ONLY. Performed By: #### A #### [place] [address] Provider Note - ED v2on 05-29 Provider [...] made to minimize errors. Minor errors in trimming department blocker may be present. Please call if questions.. [...] documented data. SIGNIFICANT EVENTS: No documented data. DRY PAN OPERATOR: Is : no(1) Is : no(1) RESULTS/VITAL [...] ill patient: no Electronic Signatures: Catina Frederick (PAC) (Signed 10-Jun-2021 20:57) Authored: ED Notes, HPI, PMH, EKG, MDM/ED Course, Clinical Impression, Attestation, Chart Review, Scores Last Updated: 10-Jun-2021 20:57 by Catina Frederick (PAC) References: 1. Data Referenced From Triage - ED 10-Jun-2021 20:27 [facility] Triage - EDon 06-10-2021 Triage - [...] BMI (kg/m2): 27.531 Calculated BSA (m2) 1.81 [place] Coma Scale: Best Eye Response: (E4) spontaneous [...] Updated: 10-Jun-2021 20:30 by Rocky Hebert (ROSA) [facility] Vital Signs Date Time Vital Sign Value Performing Clinician Facility 05-06-2025 11:28-0400 Body temperature 97.9 [degF] Abisai Haley MD Work Phone: 2(698)[phone] [place] [address] 05-06-2025 11:28-0400 Diastolic blood pressure 80 mm[Hg] Abisai Haley MD Work Phone: 7(657)649-424647 [place] [address] 05-06-2025 11:28-0400 Heart rate 75 /min Abisai Haley MD Work Phone: 8(362)089-795847 [place] [address] 05-06-2025 11:28-0400 Respiratory rate 16 /min Abisai Haley MD Work Phone: 8(229)342-327047 [place] [address] 05-06-2025 11:28-0400 SaO2% (BldA) [Mass fraction] 92 % Abisai Haley MD Work Phone: 9(760)556-044447 [place] [address] 05-06-2025 11:28-0400 Systolic blood pressure 125 mm[Hg] Abisai Haley MD Work Phone: 9(896)559-693847 [place] [address] 05-06-2025 02:33-0400 Inhaled oxygen concentration 21 % Abisai Haley MD Work Phone: 7(834)440-172647 [place] [address] 05-05-2025 20:11-0400 Inhaled oxygen flow rate 2 L/min Abisai Haley MD Work Phone: 0(114)696-427747 [place] [address] 05-04-2025 11:23-0400 Body height 162.56 cm Abisai Haley MD Work Phone: 1(179)689-606747 [place] [address] 05-04-2025 11:23-0400 Body weight 59.5 kg Abisai Haley MD Work Phone: 3(436)034-223747 [place] [address] 04-26-2025 18:15-0400 Body mass index (BMI) [Ratio] 22.5 kg/m2 Abisai Haley MD Work Phone: 6(898)324-873647 [place] [address] 04-26-2025 17:00-0400 Diastolic blood pressure 86 mm[Hg] Abisai Haley MD Work Phone: 3(993)520-822147 [place] [address] 04-26-2025 17:00-0400 Heart rate 90 /min Abisai Haley MD Work Phone: [facility] 04-26-2025 17:00-0400 Respiratory rate 29 /min Abisai Haley MD Work Phone: [facility] 04-26-2025 17:00-0400 SaO2% (BldA) [Mass fraction] 95 % Abisai Haley MD Work Phone: [facility] 04-26-2025 17:00-0400 Systolic blood pressure 169 mm[Hg] Abisai Haley MD Work Phone: [facility] 04-26-2025 16:19-0400 Body temperature 98.1 [degF] Abisai Haley MD Work Phone: [facility] 04-26-2025 13:42-0400 Body height 162.56 cm Abisai Haley MD Work Phone: 8(508)879-887147 [place] [address] 04-26-2025 13:42-0400 Body mass index (BMI) [Ratio] 22.3 kg/m2 Abisai Haley MD Work Phone: [facility] 04-26-2025 13:42-0400 Body weight 58.96 kg Abisai Haley MD Work Phone: [facility] 04-12-2025 00:24-0400 Body temperature 98 [degF] Abisai Haley MD Work Phone: [facility] 04-12-2025 00:24-0400 Diastolic blood pressure 66 mm[Hg] Abisai Haley MD Work Phone: [facility] 04-12-2025 00:24-0400 Heart rate 78 /min Abisai Haley MD Work Phone: [facility] 04-12-2025 00:24-0400 Respiratory rate 16 /min Abisai Haley MD Work Phone: [facility] 04-12-2025 00:24-0400 SaO2% (BldA) [Mass fraction] 100 % Abisai Haley MD Work Phone: [facility] 04-12-2025 00:24-0400 Systolic blood pressure 125 mm[Hg] Abisai Haley MD Work Phone: [facility] 04-11-2025 23:20-0400 Inhaled oxygen flow rate 2 L/min Abisai Haley MD Work Phone: [facility] 04-11-2025 21:46-0400 Body mass index (BMI) [Ratio] 24.4 kg/m2 Abisai Haley MD Work Phone: [facility] 04-11-2025 21:46-0400 Body weight 64.6 kg Abisai Haley MD Work Phone: [facility] 04-11-2025 21:42-0400 Body height 162.56 cm Abisai Haley MD Work Phone: 5(680)239-298403 [place] [address] 04-04-2025 17:00-0400 Heart rate 97 /min Abisai Haley MD Work Phone: [facility] 04-04-2025 17:00-0400 Respiratory rate 25 /min Abisai Haley MD Work Phone: [facility] 04-04-2025 16:03-0400 Body temperature 98.4 [degF] Abisai Haley MD Work Phone: [facility] 04-04-2025 16:03-0400 Diastolic blood pressure 88 mm[Hg] Abisai Haley MD Work Phone: [facility] 04-04-2025 16:03-0400 SaO2% (BldA) [Mass fraction] 97 % Abisai Haley MD Work Phone: [facility] 04-04-2025 16:03-0400 Systolic blood pressure 157 mm[Hg] Abisai Haley MD Work Phone: [facility] 04-04-2025 11:51-0400 Body mass index (BMI) [Ratio] 25.1 kg/m2 Abisai Haley MD Work Phone: [facility] 04-04-2025 11:51-0400 Body weight 66.4 kg Abisai Haley MD Work Phone: [facility] 04-04-2025 10:24-0400 Body height 162.56 cm Abisai Haley MD Work Phone: [facility] 04-22-2024 13:48-0400 Body mass index (BMI) [Ratio] 29.6 kg/m2 Aretha Praisler-Wood SIZING SPRAYER.GRADUATE RN Work Phone: [facility] 04-22-2024 13:48-0400 Body temperature 97.39 [degF] Aretha Praisler-Wood SIZING SPRAYER.GRADUATE RN Work Phone: [facility] 04-22-2024 13:48-0400 Body weight 75.8 kg Aretha Praisler-Wood SIZING SPRAYER.GRADUATE RN Work Phone: [facility] 04-22-2024 13:48-0400 Diastolic blood pressure 84 mm[Hg] Aretha Praisler-Wood SIZING SPRAYER.GRADUATE RN Work Phone: [facility] 04-22-2024 13:48-0400 Heart rate 115 /min Aretha Praisler-Wood SIZING SPRAYER.GRADUATE RN Work Phone: [facility] 04-22-2024 13:48-0400 Respiratory rate 20 /min Aretha Praisler-Wood SIZING SPRAYER.GRADUATE RN Work Phone: [facility] 04-22-2024 13:48-0400 SaO2% (BldA) [Mass fraction] 98 % Aretha Praisler-Wood SIZING SPRAYER.GRADUATE RN Work Phone: [facility] 04-22-2024 13:48-0400 Systolic blood pressure 120 mm[Hg] Aretha Praisler-Wood SIZING SPRAYER.GRADUATE RN Work Phone: [facility] 03-22-2024 07:08-0400 Body temperature 97.7 [degF] DO Milana Garcia Work Phone: [facility] 03-22-2024 07:08-0400 Diastolic blood pressure 84 mm[Hg] DO Milana Jose Work Phone: [facility] 03-22-2024 07:08-0400 Heart rate 102 /min DO Milana Jose Work Phone: [facility] 03-22-2024 07:08-0400 Respiratory rate 17 /min DO Milana Jose Work Phone: [facility] 03-22-2024 07:08-0400 SaO2% (BldA) [Mass fraction] 95 % DO Milana Jose Work Phone: [facility] 03-22-2024 07:08-0400 Systolic blood pressure 134 mm[Hg] DO Milana Jose Work Phone: [facility] 01-24-2024 21:30-0500 Body temperature 96.9 [degF] DO Milana Jose Work Phone: [facility] 01-24-2024 21:30-0500 Diastolic blood pressure 61 mm[Hg] DO Milana Jose Work Phone: [facility] 01-24-2024 21:30-0500 Heart rate 96 /min DO Milana Jose Work Phone: [facility] 01-24-2024 21:30-0500 Respiratory rate 16 /min DO Milana Jose Work Phone: [facility] 01-24-2024 21:30-0500 SaO2% (BldA) [Mass fraction] 98 % DO Milana Jose Work Phone: [facility] 01-24-2024 21:30-0500 Systolic blood pressure 149 mm[Hg] DO Milana Jose Work Phone: [facility] 01-24-2024 21:25-0500 Body mass index (BMI) [Ratio] 28 kg/m2 DO Milana Jose Work Phone: [facility] 01-24-2024 21:25-0500 Body weight 74 kg DO Milana Jose Work Phone: [facility] 01-24-2024 16:39-0500 Body height 162.56 cm DO Milana Jose Work Phone: [facility] 10-19-2023 10:54-0500 Body height 162.56 cm DO Milana Jose Work Phone: [facility] 10-19-2023 10:54-0500 Body mass index (BMI) [Ratio] 26.2 kg/m2 DO Milana Jose Work Phone: [facility] 10-19-2023 10:54-0500 Body temperature 98.4 [degF] DO Milana Jose Work Phone: [facility] 10-19-2023 10:54-0500 Body weight 69.39 kg DO Milana Jose Work Phone: [facility] 10-19-2023 10:54-0500 Diastolic blood pressure 80 mm[Hg] DO Milana Jose Work Phone: [facility] 10-19-2023 10:54-0500 Heart rate 97 /min DO Milana Jose Work Phone: [facility] 10-19-2023 10:54-0500 Respiratory rate 16 /min DO Milanagillian Christensennger Work Phone: [facility] 10-19-2023 10:54-0500 SaO2% (BldA) [Mass fraction] 90 % DO Milana Jose Work Phone: [facility] 10-19-2023 10:54-0500 Systolic blood pressure 147 mm[Hg] DO Milana Jose Work Phone: [facility] 10-10-2023 17:58-0500 Diastolic blood pressure 68 mm[Hg] DO Milana Jose Work Phone: [facility] 10-10-2023 17:58-0500 Heart rate 81 /min DO Milana Jose Work Phone: [facility] 10-10-2023 17:58-0500 Respiratory rate 16 /min DO Milana Jose Work Phone: [facility] 10-10-2023 17:58-0500 SaO2% (BldA) [Mass fraction] 97 % DO Milana Jose Work Phone: [facility] 10-10-2023 17:58-0500 Systolic blood pressure 128 mm[Hg] DO Milana Jose Work Phone: [facility] 10-10-2023 15:25-0500 Body mass index (BMI) [Ratio] 26.3 kg/m2 DO Milana Jose Work Phone: [facility] 10-10-2023 15:25-0500 Body temperature 98.4 [degF] DO Milana Jose Work Phone: [facility] 10-10-2023 15:25-0500 Body weight 69.58 kg DO Milana Jose Work Phone: [facility] 09-27-2023 15:27-0400 Body temperature 98.2 [degF] DO Milana Jose Work Phone: [facility] 09-27-2023 15:27-0400 Diastolic blood pressure 78 mm[Hg] DO Milana Jose Work Phone: [facility] 09-27-2023 15:27-0400 Heart rate 92 /min DO Milana Jose Work Phone: [facility] 09-27-2023 15:27-0400 Respiratory rate 17 /min DO Milana Jose Work Phone: [facility] 09-27-2023 15:27-0400 SaO2% (BldA) [Mass fraction] 92 % DO Milana Jose Work Phone: [facility] 09-27-2023 15:27-0400 Systolic blood pressure 145 mm[Hg] DO Milana Jose Work Phone: [facility] 09-15-2023 12:21-0400 Body temperature 98.6 [degF] DO Milana Jose Work Phone: [facility] 09-15-2023 12:21-0400 Diastolic blood pressure 83 mm[Hg] DO Milana Jose Work Phone: [facility] 09-15-2023 12:21-0400 Heart rate 93 /min DO Milana Jose Work Phone: [facility] 09-15-2023 12:21-0400 Respiratory rate 17 /min DO Milaan Jose Work Phone: [facility] 09-15-2023 12:21-0400 SaO2% (BldA) [Mass fraction] 94 % DO Milana Jose Work Phone: [facility] 09-15-2023 12:21-0400 Systolic blood pressure 149 mm[Hg] DO Milana Jose Work Phone: [facility] 08-25-2023 10:00-0400 Body height 162.56 cm DO Milana Jose Work Phone: [facility] 08-25-2023 10:00-0400 Body mass index (BMI) [Ratio] 28.3 kg/m2 DO Milana Jose Work Phone: [facility] 08-25-2023 10:00-0400 Body weight 74.84 kg DO Milana Jose Work Phone: [facility] 08-25-2023 10:00-0400 Diastolic blood pressure 85 mm[Hg] DO Milana Jose Work Phone: [facility] 08-25-2023 10:00-0400 Heart rate 63 /min DO Milana Jose Work Phone: [facility] 08-25-2023 10:00-0400 Respiratory rate 18 /min DO Milana Jose Work Phone: [facility] 08-25-2023 10:00-0400 SaO2% (BldA) [Mass fraction] 96 % DO Milana Jose Work Phone: [facility] 08-25-2023 10:00-0400 Systolic blood pressure 136 mm[Hg] DO Milana Jose Work Phone: [facility] 08-23-2023 15:04-0400 Body temperature 97.6 [degF] DO Milana Jose Work Phone: [facility] 08-23-2023 15:04-0400 Diastolic blood pressure 78 mm[Hg] DO Milana Jose Work Phone: [facility] 08-23-2023 15:04-0400 Heart rate 78 /min DO Milana Jose Work Phone: [facility] 08-23-2023 15:04-0400 Respiratory rate 14 /min DO Milana Jose Work Phone: [facility] 08-23-2023 15:04-0400 SaO2% (BldA) [Mass fraction] 99 % DO Milana Jose Work Phone: [facility] 08-23-2023 15:04-0400 Systolic blood pressure 124 mm[Hg] DO Milana Jose Work Phone: [facility] 08-23-2023 11:44-0400 Body height 162.56 cm DO Milana Jose Work Phone: [facility] 08-23-2023 11:44-0400 Body mass index (BMI) [Ratio] 28.3 kg/m2 DO Milana Jose Work Phone: [facility] 08-23-2023 11:44-0400 Body weight 74.88 kg DO Milana Jose Work Phone: [facility] 07-29-2023 17:56-0400 Diastolic blood pressure 74 mm[Hg] DO Milana Jose Work Phone: [facility] 07-29-2023 17:56-0400 Heart rate 73 /min DO Milana Jose Work Phone: [facility] 07-29-2023 17:56-0400 Respiratory rate 15 /min DO Milana Jose Work Phone: [facility] 07-29-2023 17:56-0400 SaO2% (BldA) [Mass fraction] 98 % DO Milana Jose Work Phone: [facility] 07-29-2023 17:56-0400 Systolic blood pressure 117 mm[Hg] DO Milana Jose Work Phone: [facility] 07-29-2023 14:11-0400 Body height 162.56 cm DO Milana Jose Work Phone: [facility] 07-29-2023 14:11-0400 Body mass index (BMI) [Ratio] 27.8 kg/m2 DO Milana Jose Work Phone: [facility] 07-29-2023 14:11-0400 Body temperature 96.3 [degF] DO Milana Jose Work Phone: [facility] 07-29-2023 14:11-0400 Body weight 73.48 kg DO Milana Jose Work Phone: [facility] 07-01-2023 09:44-0400 Body height 162.56 cm DO Milana Jose Work Phone: [facility] 07-01-2023 09:44-0400 Body mass index (BMI) [Ratio] 27.8 kg/m2 DO Milana Jose Work Phone: [facility] 07-01-2023 09:44-0400 Body temperature 98.5 [degF] DO Milana Jose Work Phone: [facility] 07-01-2023 09:44-0400 Body weight 73.48 kg DO Milana Jose Work Phone: [facility] 07-01-2023 09:44-0400 Diastolic blood pressure 88 mm[Hg] DO Milana Jose Work Phone: [facility] 07-01-2023 09:44-0400 Heart rate 88 /min DO Milana Jose Work Phone: [facility] 07-01-2023 09:44-0400 Respiratory rate 18 /min DO Milana Jose Work Phone: [facility] 07-01-2023 09:44-0400 SaO2% (BldA) [Mass fraction] 95 % DO Milana Jose Work Phone: [facility] 07-01-2023 09:44-0400 Systolic blood pressure 136 mm[Hg] DO Milana Jose Work Phone: [facility] 05-25-2023 02:54-0400 Diastolic blood pressure 64 mm[Hg] DO Milana Jose Work Phone: [facility] 05-25-2023 02:54-0400 Heart rate 90 /min DO Milana Jose Work Phone: [facility] 05-25-2023 02:54-0400 Respiratory rate 18 /min DO Milana Jose Work Phone: [facility] 05-25-2023 02:54-0400 Systolic blood pressure 132 mm[Hg] DO Milana Jose Work Phone: [facility] 05-25-2023 02:11-0400 SaO2% (BldA) [Mass fraction] 94 % DO Milana Jose Work Phone: [facility] 05-24-2023 21:32-0400 Body height 162.99 cm DO Milana Jose Work Phone: [facility] 05-24-2023 21:32-0400 Body mass index (BMI) [Ratio] 28.9 kg/m2 DO Milana Jose Work Phone: [facility] 05-24-2023 21:32-0400 Body temperature 96.7 [degF] DO Milana Jose Work Phone: [facility] 05-24-2023 21:32-0400 Body weight 76.9 kg DO Milana Jose Work Phone: [facility] 05-20-2023 09:58-0400 Body height 162.56 cm DO Milana Jose Work Phone: [facility] 05-20-2023 09:57-0400 Body mass index (BMI) [Ratio] 27.6 kg/m2 DO Milana Jose Work Phone: [facility] 05-20-2023 09:57-0400 Body weight 73.02 kg DO Milana Jose Work Phone: [facility] 05-20-2023 09:57-0400 Diastolic blood pressure 98 mm[Hg] DO Milana Jose Work Phone: [facility] 05-20-2023 09:57-0400 Heart rate 81 /min DO Milana Jose Work Phone: [facility] 05-20-2023 09:57-0400 Respiratory rate 18 /min DO Milana Jose Work Phone: [facility] 05-20-2023 09:57-0400 SaO2% (BldA) [Mass fraction] 97 % DO Milana Jose Work Phone: [facility] 05-20-2023 09:57-0400 Systolic blood pressure 156 mm[Hg] DO Milana Jose Work Phone: [facility] 05-05-2023 00:54-0400 Diastolic blood pressure 62 mm[Hg] DO Milana Jose Work Phone: [facility] 05-05-2023 00:54-0400 Heart rate 68 /min DO Milana Jose Work Phone: [facility] 05-05-2023 00:54-0400 Respiratory rate 16 /min DO Milana Jose Work Phone: [facility] 05-05-2023 00:54-0400 SaO2% (BldA) [Mass fraction] 96 % DO Milana Jose Work Phone: [facility] 05-05-2023 00:54-0400 Systolic blood pressure 97 mm[Hg] DO Milana Jose Work Phone: [facility] 05-04-2023 21:23-0400 Body mass index (BMI) [Ratio] 27.2 kg/m2 DO Milana Ojse Work Phone: [facility] 05-04-2023 21:23-0400 Body weight 72 kg DO Milana Jose Work Phone: [facility] 05-04-2023 19:53-0400 Body height 162.56 cm DO Milana Jose Work Phone: [facility] 05-04-2023 19:53-0400 Body temperature 97.3 [degF] DO Milana Jose Work Phone: [facility] 04-11-2023 09:46-0400 Body temperature 98 [degF] DO Milana Jose Work Phone: [facility] 04-11-2023 09:46-0400 Diastolic blood pressure 63 mm[Hg] DO Milana Jose Work Phone: [facility] 04-11-2023 09:46-0400 Heart rate 85 /min DO Milana Jose Work Phone: [facility] 04-11-2023 09:46-0400 Respiratory rate 14 /min DO Milana Jose Work Phone: [facility] 04-11-2023 09:46-0400 SaO2% (BldA) [Mass fraction] 97 % DO Milana Jose Work Phone: [facility] 04-11-2023 09:46-0400 Systolic blood pressure 118 mm[Hg] DO Milana Jose Work Phone: [facility] 04-10-2023 03:47-0400 Body height 162.56 cm DO Milana Christensennger Work Phone: [facility] 04-10-2023 03:47-0400 Body mass index (BMI) [Ratio] 27.4 kg/m2 DO Milanagillian Christensennger Work Phone: [facility] 04-10-2023 03:47-0400 Body weight 72.5 kg DO Milana Jose Work Phone: [facility] 04-10-2023 02:34-0400 Diastolic blood pressure 61 mm[Hg] DO Milana Christensennger Work Phone: [facility] 04-10-2023 02:34-0400 Heart rate 87 /min DO Milana Christensennger Work Phone: [facility] 04-10-2023 02:34-0400 Respiratory rate 16 /min DO Milana Christensennger Work Phone: [facility] 04-10-2023 02:34-0400 SaO2% (BldA) [Mass fraction] 95 % DO Milana Christensennger Work Phone: [facility] 04-10-2023 02:34-0400 Systolic blood pressure 114 mm[Hg] DO Milana Christensennger Work Phone: [facility] 04-10-2023 02:15-0400 Body temperature 98 [degF] DO Milanagillian Christensennger Work Phone: [facility] 04-09-2023 22:23-0400 Body height 162.56 cm DO Milanagillian Christensennger Work Phone: [facility] 04-09-2023 22:23-0400 Body mass index (BMI) [Ratio] 26.8 kg/m2 DO Milana Jose Work Phone: [facility] 04-09-2023 22:23-0400 Body weight 70.8 kg DO Milana Jose Work Phone: [facility] 03-22-2023 22:52-0400 Diastolic blood pressure 69 mm[Hg] DO Milana Jose Work Phone: [facility] 03-22-2023 22:52-0400 Heart rate 71 /min DO Milana Jose Work Phone: [facility] 03-22-2023 22:52-0400 Respiratory rate 18 /min DO Milana Jose Work Phone: [facility] 03-22-2023 22:52-0400 SaO2% (BldA) [Mass fraction] 98 % DO Milana Jose Work Phone: [facility] 03-22-2023 22:52-0400 Systolic blood pressure 111 mm[Hg] DO Milana Jose Work Phone: [facility] 03-22-2023 17:49-0400 Body height 162.56 cm DO Milana Jose Work Phone: [facility] 03-22-2023 17:49-0400 Body mass index (BMI) [Ratio] 26.5 kg/m2 DO Milana Jose Work Phone: [facility] 03-22-2023 17:49-0400 Body temperature 96.4 [degF] DO Milana Jose Work Phone: [facility] 03-22-2023 17:49-0400 Body weight 70.08 kg DO Milana Jose Work Phone: [facility] 02-12-2023 10:24-0400 Body temperature 98.2 [degF] DO Milana Jose Work Phone: [facility] 02-12-2023 10:24-0400 Diastolic blood pressure 66 mm[Hg] DO Milana Jose Work Phone: [facility] 02-12-2023 10:24-0400 Heart rate 83 /min DO Milana Jose Work Phone: [facility] 02-12-2023 10:24-0400 Respiratory rate 16 /min DO Milana Garcia Work Phone: [facility] 02-12-2023 10:24-0400 SaO2% (BldA) [Mass fraction] 98 % DO Milana Garcia Work Phone: [facility] 02-12-2023 10:24-0400 Systolic blood pressure 104 mm[Hg] DO Milana Christensennger Work Phone: [facility] 01-21-2023 15:06-0500 Diastolic blood pressure 82 mm[Hg] Dr. Calvin Waldrop Work Phone: [facility] 01-21-2023 15:06-0500 Heart rate 90 /min Dr. Calvin Waldrop Work Phone: [facility] 01-21-2023 15:06-0500 Respiratory rate 14 /min Dr. Calvin Waldrop Work Phone: [facility] 01-21-2023 15:06-0500 SaO2% (BldA) [Mass fraction] 98 % Dr. Calvin Waldrop Work Phone: [facility] 01-21-2023 15:06-0500 Systolic blood pressure 165 mm[Hg] Dr. Calvin Waldrop Work Phone: [facility] 01-21-2023 11:49-0500 Body height 162.[address] Calvin Waldrop Work Phone: [facility] 01-21-2023 11:49-0500 Body mass index (BMI) [Ratio] 27.5 kg/m2 Dr. Calvin Waldrop Work Phone: [facility] 01-21-2023 11:49-0500 Body temperature 97.2 [degF] Dr. Calvin Waldrop Work Phone: [facility] 01-21-2023 11:49-0500 Body weight 72.[address] Calvin Waldrop Work Phone: [facility] 11-19-2022 10:59-0500 Diastolic blood pressure 69 mm[Hg] Dr. Calvin Waldrop Work Phone: [facility] 11-19-2022 10:59-0500 Heart rate 83 /min Dr. Calvin Waldrop Work Phone: [facility] 11-19-2022 10:59-0500 Systolic blood pressure 120 mm[Hg] Dr. Calvin Waldrop Work Phone: [facility] 11-19-2022 10:47-0500 Body temperature 98.5 [degF] Dr. Calvin Waldrop Work Phone: [facility] 11-19-2022 10:47-0500 Respiratory rate 16 /min Dr. Calvin Waldrop Work Phone: [facility] 11-19-2022 10:47-0500 SaO2% (BldA) [Mass fraction] 97 % Dr. Calvin Waldrop Work Phone: [facility] 11-18-2022 13:57-0500 Body height 162.[address] Calvin Waldrop Work Phone: [facility] Work Phone: 11-18-2022 13:57-0500 Body mass index (BMI) [Ratio] 28.5 kg/m2 Dr. Calvin Waldrop Work Phone: [facility] 11-18-2022 13:57-0500 Body weight 75.[address] Calvin Waldrop Work Phone: [facility] 10-31-2022 11:49-0500 Body temperature 98.2 [degF] Dr. Calvin Waldrop Work Phone: [facility] 10-31-2022 11:49-0500 Diastolic blood pressure 88 mm[Hg] Dr. Calvin Waldrop Work Phone: [facility] 10-31-2022 11:49-0500 Heart rate 98 /min Dr. Calvin Waldrop Work Phone: [facility] 10-31-2022 11:49-0500 Respiratory rate 14 /min Dr. Calvin Waldrop Work Phone: [facility] 10-31-2022 11:49-0500 SaO2% (BldA) [Mass fraction] 97 % Dr. Calvin Waldrop Work Phone: [facility] 10-31-2022 11:49-0500 Systolic blood pressure 136 mm[Hg] Dr. Calvin Waldrop Work Phone: [facility] 10-07-2022 14:59-0500 Body temperature 97.8 [degF] Dr. Calvin Waldrop Work Phone: [facility] 10-07-2022 14:59-0500 Diastolic blood pressure 80 mm[Hg] Dr. Calvin Waldrop Work Phone: [facility] 10-07-2022 14:59-0500 Heart rate 107 /min Dr. Calvin Waldrop Work Phone: [facility] 10-07-2022 14:59-0500 Respiratory rate 16 /min Dr. Calvin Waldrop Work Phone: [facility] 10-07-2022 14:59-0500 SaO2% (BldA) [Mass fraction] 98 % Dr. Calvin Waldrop Work Phone: [facility] 10-07-2022 14:59-0500 Systolic blood pressure 154 mm[Hg] Dr. Calvin Waldrop Work Phone: [facility] 09-05-2022 23:51-0400 Diastolic blood pressure 68 mm[Hg] Calvin Waldrop [facility] Work Phone: 09-05-2022 23:51-0400 Heart rate 115 /min Calvin Waldrop [facility] Work Phone: 09-05-2022 23:51-0400 Respiratory rate 16 /min Calvin Waldrop [facility] Work Phone: 09-05-2022 23:51-0400 SaO2% (BldA) [Mass fraction] 96 % Calvin [facility] Work Phone: 09-05-2022 23:51-0400 Systolic blood pressure 129 mm[Hg] [facility] Work Phone: 09-05-2022 21:11-0400 Body height 162.[address] [facility] Work Phone: 09-05-2022 21:11-0400 Body mass index (BMI) [Ratio] 27.5 kg/m2 [facility] Work Phone: 09-05-2022 21:11-0400 Body temperature 98 [degF] [facility] Work Phone: 09-05-2022 21:11-0400 Body weight 72.[address] [facility] Work Phone: 07-21-2022 18:58-0400 Body temperature 99 [degF] Samantha Deleon [employer]GRADUATE RN Work Phone: [facility] 07-21-2022 18:58-0400 Body weight 72.39 kg Samantha Deleon [employer].GRADUATE RN Work Phone: [facility] 07-21-2022 18:58-0400 Diastolic blood pressure 84 mm[Hg] Samantha Deleon [employer]ER.GRADUATE RN Work Phone: [facility] 07-21-2022 18:58-0400 Heart rate 83 /min Samantha Deleon [employer].GRADUATE RN Work Phone: [facility] 07-21-2022 18:58-0400 Respiratory rate 16 /min Samantha Deleon [employer]ER.GRADUATE RN Work Phone: [facility] 07-21-2022 18:58-0400 SaO2% (BldA) [Mass fraction] 98 % Samantha Deleon [employer]ING [employer]ER.GRADUATE RN Work Phone: [facility] 07-21-2022 18:58-0400 Systolic blood pressure 138 mm[Hg] Samantha Deleon [employer]ING [employer]ER.GRADUATE RN Work Phone: [facility] 05-31-2022 12:28-0400 Body mass index (BMI) [Ratio] 26.3 kg/m2 Calvin [facility] Work Phone: 05-31-2022 12:28-0400 Body temperature 97.3 [degF] Calvin [facility] Work Phone: 05-31-2022 12:28-0400 Body weight 69.51 kg Calvin Waldrop [facility] Work Phone: 05-31-2022 12:28-0400 Diastolic blood pressure 76 mm[Hg] Calvin [facility] Work Phone: 05-31-2022 12:28-0400 Heart rate 69 /min Calvin [facility] Work Phone: 05-31-2022 12:28-0400 Respiratory rate 18 /min Calvin [facility] Work Phone: 05-31-2022 12:28-0400 SaO2% (BldA) [Mass fraction] 99 % Calvin [facility] Work Phone: 05-31-2022 12:28-0400 Systolic blood pressure 116 mm[Hg] Calvin [facility] Work Phone: 02-22-2022 15:02-0400 Diastolic blood pressure 84 mm[Hg] [facility] Work Phone: 02-22-2022 15:02-0400 Heart rate 71 /min [facility] Work Phone: 02-22-2022 15:02-0400 Respiratory rate 14 /min [facility] Work Phone: 02-22-2022 15:02-0400 SaO2% (BldA) [Mass fraction] 96 % [facility] Work Phone: 02-22-2022 15:02-0400 Systolic blood pressure 120 mm[Hg] [facility] Work Phone: 03-27-2022 12:30-0400 Body temperature 96.2 [degF] [facility] Work Phone: 02-22-2022 12:12-0400 Body height 162.56 cm [facility] Work Phone: 02-22-2022 12:12-0400 Body mass index (BMI) [Ratio] 26.3 kg/m2 [facility] Work Phone: 02-22-2022 12:12-0400 Body weight 69.5 kg [facility] Work Phone: 06-10-2021 22:58-0400 Diastolic blood pressure 62 mm[Hg] No Pcp Required [facility] 06-10-2021 22:58-0400 Heart rate 88 /min No Pcp Required [facility] 06-10-2021 22:58-0400 Respiratory rate 16 /min No Pcp Required [facility] 06-10-2021 22:58-0400 SaO2% (BldA) [Mass fraction] 99 % No Pcp Required [facility] 06-10-2021 22:58-0400 Systolic blood pressure 105 mm[Hg] No Pcp Required [facility] 06-10-2021 22:27-0400 Body height 162.5 cm No Pcp Required [facility] 06-10-2021 22:27-0400 Body temperature 96.98 [degF] No Pcp Required [facility] 06-10-2021 22:27-0400 Body weight 72.7 kg No Pcp Required [facility] Encounters Encounter Date Encounter Type Care Provider Facility Start: 05-04-2025 Non-patient / Non-visit Dr. Canelo torres MD -[facility] Work Phone: Start: 05-03-2025 Non-patient / Non-visit Dr. Canelo torres MD -[facility] Work Phone: Start: 05-02-2025 Non-patient / Non-visit Dr. Canelo torres MD -[facility] Work Phone: Start: 05-01-2025 Non-patient / Non-visit Dr. Canelo torres MD -[facility] Work Phone: Start: 04-30-2025 Non-patient / Non-visit Dr. Canelo torres MD -[facility] Work Phone: Start: 04-29-2025 Non-patient / Non-visit Dr. Canelo torres MD -[facility] Work Phone: Start: 04-28-2025 Non-patient / Non-visit Dr. Canelo torres MD -[facility] Work Phone: Start: 04-27-2025 Non-patient / Non-visit Dr. Canelo torres MD [facility] Work Phone: Start: 04-26-2025 Non-patient / Non-visit Dr. Julius Moncada MD -[facility] Work Phone: Start: 04-26-[facility] Start: 04-26-2025 End: 05-06-2025 Evaluation and management of inpatient Dr. Julius Moncada MD -[facility] Work Phone: Start: 04-11-2025 End: 04-12-2025 Emergency department patient visit Abisai Haley MD Work Phone: -Emergency Department Work Phone: Start: 04-04-2025 End: 04-04-2025 Emergency department patient visit Abisai Haley MD Work Phone: -Emergency Department Work Phone: Start: 01-03-2025 ambulatory Abisai Haley Facility:[facility] Start: 11-12-2024 End: 11-12-2024 Emergency department patient visit Rober Concepcion Facility:[facility] Start: 10-09-2024 End: 10-09-2024 ambulatory Abisai Haley Facility:[facility] Start: 09-25-2024 End: 09-25-2024 ambulatory Ivon Latrell Facility:[facility] Start: 08-28-2024 End: 08-28-2024 ambulatory Ivon Sams [facility] Start: 08-22-2024 End: 08-22-2024 ambulatory Abisai Haley [facility] Start: 08-22-2024 End: 08-22-2024 ambulatory Abisai Haley Facility:[facility] Start: 08-15-2024 End: 08-[facility] Start: 07-11-2024 End: 07-11-2024 Emergency department patient visit Chaldean Haley Facility:[facility] Start: 04-22-2024 End: 04-22-2024 ambulatory IHSAN AGUILAR Facility:[facility] Start: 04-22-2024 End: 04-22-2024 Patient encounter procedure Aretha Schofield APRN.[facility] Work Phone: [facility] Comment on above: Sinus congestion (Pr imary Dx); Wheezing; Nausea Start: 03-22-2024 End: 03-22-2024 Patient encounter procedure DO Milana Garcia Work Phone: [facility] Work Phone: Start: 03-21-2024 End: 03-21-2024 ambulatory DO Milana Garcia Work Phone: [facility] Work Phone: Start: 03-21-2024 End: 03-21-2024 Patient encounter procedure DO Milana Garica Work Phone: [facility] Start: 01-24-2024 End: 01-24-2024 Emergency department patient visit DO Milana Garcia Work Phone: [facility] Work Phone: Start: 10-19-2023 End: 10-19-2023 Patient encounter procedure DO Milana Garcia Work Phone: [facility] Work Phone: Start: 10-15-2023 End: 10-15-2023 ambulatory DO Milana Garcia Work Phone: [facility] Work Phone: Start: 10-15-2023 End: 10-15-2023 Patient encounter procedure DO Milana Garcia Work Phone: [facility] Work Phone: Start: 10-10-2023 End: 10-10-2023 Emergency department patient visit DO Mil[facility] Start: 09-27-2023 End: 09-27-2023 Patient encounter procedure DO Milana Garcia Work Phone: [facility] Work Phone: Start: 09-15-2023 End: 09-15-2023 Patient encounter procedure DO Milana Garcia Work Phone: [facility] Work Phone: Start: 08-25-2023 End: 08-25-2023 ambulatory DO Milana Garcia Work Phone: [facility] Work Phone: Start: 08-25-2023 End: 08-25-2023 Patient encounter procedure DO Milana Garcia Work Phone: [facility] Work Phone: Start: 08-25-2023 End: 08-25-2023 Patient encounter procedure DO Milana Garcia Work Phone: [facility] Work Phone: Start: 08-23-2023 End: 08-23-2023 Emergency department patient visit DO Milana Garcia [facility] Start: 07-29-2023 End: 07-29-2023 Emergency department patient visit DO Milana Trenter [facility] Start: 07-19-2023 End: 07-19-2023 ambulatory DO Milana Garcia Work Phone: [facility] Work Phone: Start: 07-19-2023 End: 07-19-2023 Patient encounter procedure DO Milana Garcia Work Phone: [facility] Work Phone: Start: 07-01-2023 End: 07-01-2023 Patient encounter procedure DO Milana Garcia Work Phone: [facility] Work Phone: Start: 05-25-2023 Registered Referred DO Milana Garcia [facility] Start: 05-24-2023 End: 05-25-2023 Emergency department patient visit DO Milana Garcia Work Phone: [facility] Start: 05-20-2023 End: 05-20-2023 Patient encounter procedure DO Milana Garcia Work Phone: [facility] Start: 05-19-2023 End: 05-19-2023 ambulatory DO Milana Garcia Work Phone: [facility] Work Phone: Start: 05-19-2023 End: 05-19-2023 Patient encounter procedure DO Milana Garcia Work Phone: [facility] Start: 05-04-2023 End: 05-05-2023 Emergency department patient visit DO Milana Garcia [facility] Start: 04-11-2023 Non-patient / Non-visit DO Yamel haleashia Jose Work Phone: [facility] Start: 04-10-2023 End: 04-10-2023 Non-patient / Non-visit DO Milana Garcia Work Phone: [facility] Start: 04-10-2023 End: 04-11-2023 Evaluation and management of inpatient DO Milana Garcia [facility] Start: 04-09-2023 End: 04-09-2023 Patient encounter procedure DO Milana Garcia Work Phone: [facility] Start: 03-22-2023 End: 03-22-2023 Emergency department patient visit DO Milana Garcia Work Phone: [facility] Start: 02-12-2023 End: 02-12-2023 Patient encounter procedure DO Milana Garcia Work Phone: [facility] Start: 01-21-2023 End: 01-21-2023 Emergency department patient visit Dr. Calvin Waldrop Work Phone: [facility] Start: 11-19-2022 Non-patient / Non-visit Dr. Luis Waldrop Work Phone: [facility] Start: 11-19-2022 Non-patient / Non-visit Dr. Luis Waldrop Work Phone: [facility] Start: 11-18-2022 Non-patient / Non-visit Dr. Luis Waldrop Work Phone: [facility] Start: 11-18-2022 Non-patient / Non-visit Dr. Luis aWldrop Work Phone: [facility] Start: 11-18-2022 End: 11-19-2022 Evaluation and management of inpatient Dr. Calvin Waldrop [facility] Start: 10-31-2022 End: 10-31-[address] Calvin Waldrop Work Phone: [facility] Start: 10-07-2022 End: 10-07-[address] Calvin Waldrop Work Phone: [facility] Start: 09-05-2022 End: 09-06-2022 Emergency [facility] Start: 07-21-2022 End: 07-21-2022 Subsequent hospital visit by physician [facility] Work Phone: Radiology Comment on above: Hip pain, acute, lef t [M25.552] Start: 07-21-2022 End: 07-21-2022 Patient encounter procedure Samantha Deleon APRN.CNP Work Phone: [facility] Comment on above: Hip pain, acute, lef t (Primary Dx) Start: 05-31-2022 End: 05-31-2022 Patient encounter procedure Calvin Waldrop [facility] Start: 02-22-2022 End: 02-22-2022 [facility] Start: 06-10-2021 End: 06-10-2021 Emergency department patient visit Noe Engel [facility] 07 Procedures Date Procedure Procedure Detail Performing Clinician Start: 05-04-2025 Estimated creatinine clearance Abisai Haley MD Work Phone: Start: 05-02-2025 Serum inorganic phos phate measurement Abisai Haley MD Work Phone: Start: 04-26-2025 Urnls dip stick/tabl et reagent [...] DO Milanagillian Christensennger Work Phone: Start: 07-29-2023 Computed tomography of [...] MRI of brain without contrast DO Milana Jose Work Phone: Start: 04-09-2023 Plain chest X-ray DO Lauro Garcia Work Phone: Start: 04-09-2023 Plain chest X-ray DO Lauro Garcia Work Phone: Start: 01-21-2023 Plain chest X-ray Dr. Julissa Waldrop Work Phone: Start: 11-18-2022 Plain chest X-ray Dr. Julissa Waldrop Work Phone: Start: 09-05-2022 CT of head without contrast Calvin Waldrop Start: 07-21-2022 Radex hip unilateral with pelvis 2-3 views Samantha Deleon [employer].GRADUATE RN Work Phone: Start: 02-22-2022 Plain chest X-ray Start: 06-21-2020 Mammography Samantha Ri ggs [employer]ER.GRADUATE RN Work Phone: Start: 09-11-2015 Colonoscopy Samantha Ri ggs [employer]ING SPRAYER.GRADUATE RN Work Phone: Bacteria identified in Blood by Culture DO Milana Garcia Work Phone: Plan of Treatment Date Care Activity Detail Author Start: 03-03-2034 Urine microalbumin profile DTaP,Tdap,Td Vaccine (3 - Td or Tdap) [facility] Start: 05-06-2025 Patient discharge [facility] Start: 05-05-2025 Inhalation therapy procedure [facility] Start: 05-01-2025 Referral to occupational therapist [facility] Start: 05-01-2025 Referral to service [facility] Start: 04-29-2025 Oxygen therapy [facility] Start: 04-28-2025 Assessment of risk of venous thromboembolism [facility] Start: 04-28-2025 Notification of physician [facility] Start: 04-28-2025 Vital signs measurements [facility] Start: 04-27-2025 [facility] Start: 04-27-2025 Hepatic function panel [facility] Start: 04-27-2025 Prothrombin time [facility] Start: 04-27-2025 Serum inorganic phosphate measurement [facility] Start: 04-27-2025 Thyroid stimulating hormone measurement [facility] Start: 04-26-2025 Following clinical pathway protocol [facility] Start: 04-26-2025 End: 04-26-2025 [facility] Start: 04-26-2025 Care regimes management [facility] Start: 04-26-2025 Notification of physician [facility] Start: 04-26-2025 Admission procedure [facility] Start: 04-26-2025 Ambulation without limitation [facility] Start: 04-26-2025 Assessment of risk of venous thromboembolism [facility] Start: 04-26-2025 Insertion of catheter into peripheral vein [facility] Start: 04-26-2025 Providing care according to standard [facility] Start: 04-26-2025 Verification routine [facility] Start: 04-26-2025 Hospital admission, emergency, from emergency room, medical nature [facility] Start: 04-26-2025 Patient referral to dietitian [facility] Start: 04-12-2025 [facility] Start: 04-11-2025 [facility] Start: 04-05-2025 [facility] Start: 04-04-2025 [facility] Start: 04-04-2025 End: 04-04-2025 [facility] Start: 07-30-2024 Covid-19 Vaccine ( season) Covid-19 Vaccine ( season) [facility] Start: 07-30-2024 Influenza vaccination [facility] Start: 06-07-2024 Hepatitis B Vaccine (3 of 3 - Hep B Twinrix 3-dose series) Hepatitis B Vaccine (3 of 3 - Hep B Twinrix 3-dose series) [facility] Start: 03-22-2024 Patient referral [facility] Work Phone: Start: 01-24-2024 [facility] Start: 01-24-2024 End: 01-24-2024 [facility] Start: 10-26-2023 HPV TESTING HPV TESTING [facility] Start: 10-26-2023 PAP TESTING PAP TESTING [facility] Start: 10-26-2023 Screening for malignant neoplasm of cervix [facility] Start: 10-15-2023 Elastase, pancreatic (el-1), fecal; quantitative [facility] Start: 10-10-2023 [facility] Start: 10-10-2023 [facility] Start: 09-26-2023 Urine microalbumin profile DTAP,TDAP,TD (2 - Td or Tdap) [facility] Start: 07-29-2023 [facility] Start: 05-24-2023 [facility] Start: 05-04-2023 [facility] Start: 04-11-2023 Patient discharge [facility] Start: 04-10-2023 Following clinical pathway protocol [facility] Start: 04-10-2023 Ambulation without limitation [facility] Start: 04-10-2023 Assessment of risk of venous thromboembolism [facility] Start: 04-10-2023 Care regimes management [facility] Start: 04-10-2023 Inhalation therapy procedure [facility] Start: 04-10-2023 Insertion of catheter into peripheral vein [facility] Start: 04-10-2023 Measuring intake and output [facility] Start: 04-10-2023 Notification of physician [facility] Start: 04-10-2023 Providing care according to standard [facility] Start: 04-10-2023 Tobacco use cessation education [facility] Start: 04-10-2023 [facility] Start: 04-10-2023 Electrocardiographic procedure [facility] Start: 04-10-2023 Verification routine [facility] Start: 04-10-2023 Admission procedure [facility] Start: 04-10-2023 End: 04-10-2023 Blood culture [facility] Start: 01-21-2023 [facility] Start: 11-19-2022 Patient referral [facility] Work Phone: Start: 11-19-2022 Patient discharge [facility] Start: 11-19-2022 Notification of physician [facility] Start: 11-19-2022 Patient education [facility] Start: 11-19-2022 Pulse taking [facility] Start: 11-19-2022 Taking patient vital signs [facility] Start: 11-19-2022 Wound care [facility] Start: 11-19-2022 [facility] Start: 11-19-2022 Catheterization of left heart [facility] Work Phone: Start: 11-18-2022 Assessment of risk of venous thromboembolism [facility] Start: 11-18-2022 Care regimes management [facility] Start: 11-18-2022 Insertion of catheter into peripheral vein [facility] Start: 11-18-2022 Measuring intake and output [facility] Start: 11-18-2022 Providing care according to standard [facility] Start: 11-18-2022 Referral to rrts [facility] Start: 11-18-2022 [facility] Start: 11-18-2022 Following clinical pathway protocol [facility] Start: 11-18-2022 Catheterization of vein [facility] Start: 11-18-2022 Medication not administered [facility] Start: 11-18-2022 Notification of physician [facility] Start: 11-18-2022 Preoperative care [facility] Start: 11-18-2022 [facility] Start: 11-18-2022 Admission procedure [facility] Start: 10-07-2022 Patient referral [facility] Work Phone: Start: 07-30-2022 Influenza vaccination INFLUENZA (#1) [facility] Start: 2022 COLOGUARD (FIT-DNA) COLOGUARD (FIT-DNA) [facility] Start: 2022 Colonoscopy COLONOSCOPY [facility] Start: 2022 COLORECTAL CANCER SCREENING COLORECTAL CANCER SCREENING [facility] Start: [address] COLONOGRAPHY [facility] Start: 2022 FECAL OCCULT BLOOD FECAL OCCULT BLOOD [facility] Start: 2022 Screening for malignant neoplasm of colon [facility] Start: 2022 SIGMOIDOSCOPY SIGMOIDOSCOPY [facility] Start: 07-15-2021 ANNUAL PCP TEAM CHRONIC DISEASE VISIT ANNUAL PCP TEAM CHRONIC DISEASE VISIT [facility] Start: 07-03-2021 Screening for malignant neoplasm of breast Mammogram Screening [facility] Start: 06-21-2021 Hepatitis B screening URINE ALBUMIN:CREATININE RATIO [facility] Start: 06-21-2021 Hepatitis B surface antibody level LDL CHOLESTEROL [facility] Start: 06-21-2021 Mammography MAMMOGRAM [facility] Start: 05-19-2021 COVID-19 VACCINE (3 - Booster for Pfizer series) COVID-19 VACCINE (3 - Booster for Pfizer series) [facility] Start: 11-19-2020 Hemoglobin A1c measurement HbA1C [facility] Start: 11-19-2020 Hemoglobin A1c/Hemoglobin.total in Blood HBA1C [facility] Start: 07-19-2020 3 comp foot exam completed DIABETIC FOOT EXAM [facility] Start: 07-19-2020 Diabetic foot examination Diabetic Foot Exam [facility] Start: 12-26-2019 Glaucoma screening Dilated Retinal Exam [facility] Start: 12-26-2019 Hepatitis C antibody, confirmatory test DILATED RETINAL EXAM [facility] Start: 10-20-2014 PNEUMOCOCCAL (2 - PCV) PNEUMOCOCCAL (2 - PCV) [facility] Start: 1995 Anxiety Screening Anxiety Screening [facility] Start: 1995 BP CONTROLLED (<130/80) BP CONTROLLED (<130/80) [facility] Start: 1995 HEPATITIS C SCREENING HEPATITIS C SCREENING [facility] Start: 1995 Hepatitis C screening Hepatitis C Screening [facility] Start: 1995 HIV SCREENING HIV SCREENING [facility] Start: 1995 HIV screening HIV Screening [facility] Start: 1977 HEPATITIS B (1 of 3 - 3-dose series) HEPATITIS B (1 of 3 - 3-dose series) [facility] Alanine aminotransfe rase [Enzymatic activity/volume] in Serum or Plasma [facility] Albumin [Mass/volume ] in Serum or Plasma [facility] Alkaline phosphatase [Enzymatic activity/volume] in Serum or Plasma [facility] Anion gap in Serum or Plasma [facility] Bacteria identified in Blood by Culture Blood Culture [facility] Bilirubin, total measurement [facility] Bilirubin.direct [Ma ss/volume] in Serum or Plasma [facility] BUN/Creatinine ratio [facility] Calcium [Mass/volume ] in Serum or Plasma [facility] Carbon dioxide, tota l [Moles/volume] in Central venous blood [facility] Cardiac event recording [facility] Creatinine [Mass/vol ume] in Serum or Plasma [facility] Erythrocyte mean cor puscular volume determination [facility] Fat [Mass/mass] in Stool [facility] Fat.neutral [Presenc e] in Stool [facility] Glucose [Mass/volume ] in Serum or Plasma [facility] Hematocrit [Volume F raction] of Blood [facility] Hemoglobin [Mass/vol ume] in Blood [facility] Hemoglobin A1c/Hemoglobin.total in Blood [facility] INR in Blood by Coag ulation assay [facility] Leukocytes [#/volume] in Blood [facility] Magnesium measurement [facility] Mean corpuscular hem oglobin concentration determination [facility] Mean corpuscular hem oglobin determination [facility] Measurement of renal function [facility] Neutrophil count [facility] Neutrophil percent differential count [facility] Patient Education [facility] Work Phone: Patient referral [facility] Work Phone: Platelets [#/volume] in Blood [facility] Potassium measurement [facility] Red blood cell count [facility] Red cell distributio n width determination [facility] Serum chloride measurement [facility] Sodium measurement [facility] Total protein measurement [facility] Troponin T.cardiac [Mass/volume] in Serum or Plasma by High sensitivity method [facility] Urea nitrogen [Mass/ volume] in Serum or Plasma [place] Immunizations Immunization Date Immunization Notes Care Provider Juany griffith 10-16-2022 influenza virus vacc ine, unspecified formulation Aretha Schofield [employer]ER.GRADUATE RN Work Phone: [facility] 09-16-2018 influenza, injectabl e, quadrivalent, contains preservative Samantha Deelon [employer]ZING SPRAYER.GRADUATE RN Work Phone: [facility] Work Phone: 11-19-2015 influenza, injectabl e, quadrivalent, contains preservative Samantha Deleon SIZING SPRAYER.GRADUATE RN Work Phone: [facility] 10-02-2014 influenza, seasonal, injectable Samantha Deleon SIZING SPRAYER.GRADUATE RN Work Phone: [facility] Work Phone: 09-27-2014 influenza, injectabl e, quadrivalent, preservative free DO Milana Garcia Work Phone: [facility] 09-27-2014 influenza, seasonal, injectable [facility] 10-20-2013 pneumococcal polysaccharide vaccine, 23 valent Samantharocky Deleon [employer]ING SPRAYER.GRADUATE RN Work Phone: [facility] Work Phone: 09-27-2013 Pneumococcal Vaccine [facility] Work Phone: 09-27-2013 pneumococcal vaccine , unspecified formulation Dr. Calvin Waldrop Work Phone: [facility] 09-26-2013 tetanus toxoid, redu lenin diphtheria toxoid, and acellular pertussis vaccine, adsorbed Samantha Deleon SIZING SPRAYER.GRADUATE RN Work Phone: [facility] 09-15-2013 influenza virus vacc ine, unspecified formulation Samantha Deleon SIZING SPRAYER.GRADUATE RN Work Phone: [facility] Work Phone: 09-15-2013 influenza, injectabl e, quadrivalent, preservative free DO Milana Garcia Work Phone: [facility] 09-15-2013 influenza, seasonal, injectable [facility] Payers Date Payer Category Payer Self-pay [id number] 2024 Self-pay 2022 Unknown 2020 Unknown [id number] 2017 Unknown [id number] Private Health Insurance [facility] [id number] Unknown [id number] Unknown [id number] Unknown [id number] 2.16.840.1.921919.3.579.2.4 62 Unknown [id number] 2.16.840.1.648887.3.579.2.4 62 Unknown [id number] 2.16.840.1.913262.3.579.2.4 62 Unknown [id number] 2.16.840.1.668737.3.579.2.4 62 Unknown [id number] 2.16.840.1.171167.3.579.2.4 62 Unknown [id number] 2.16.840.1.355021.3.579.2.4 62 Unknown [id number] 2.16.840.1.152842.3.579.2.4 62 Unknown [id number] 2.16.840.1.205994.3.579.2.4 62 Unknown [id number] 2.16.840.1.911724.3.579.2.4 62 Unknown [id number] 2.16.840.1.268426.3.579.2.4 62 Unknown [id number] 2.16.840.1.647892.3.579.2.4 62 Unknown [id number] 2.16.840.1.095788.3.579.2.4 62 Unknown [id number] 2.16.840.1.655255.3.579.2.4 62 Unknown [id number] 2.16.840.1.607062.3.579.2.4 62 Unknown [id number] 2.16.840.1.536743.3.579.2.4 62 Unknown [id number] 2.16.840.1.349930.3.579.2.4 62 Unknown [id number] 2.16.840.1.768422.3.579.2.4 62 Unknown [id number] 2.16.840.1.432192.3.579.2.4 62 Unknown [id number] 2.16.840.1.156727.3.579.2.4 62 Unknown [id number] 2.16.840.1.245161.3.579.2.4 62 Unknown [id number] 2.16.840.1.322410.3.579.2.4 62 Unknown [id number] 2.16.840.1.778761.3.579.2.4 62 Unknown [id number] 2.16.840.1.612028.3.579.2.4 62 Unknown [id number] 2.16.840.1.515079.3.579.2.4 62 Social History Date Type Detail Facility [facility] Start: 02-22-2022 End: 01-24-2024 Tobacco smoking consumption unknown [facility] Start: 04-14-2021 Sober [facility] Start: 04-14-2021 None [facility] Start: 04-14-2021 Cigarettes [facility] Start: 1975 Sex Assigned At Female C [facility] Start: 07-21-2022 Tobacco smoking stat us WIIS Ex-smoker [facility] Start: 11-29-1996 End: 07-11-2020 History of tobacco use Current smoker [facility] Start: 11-29-1996 End: 07-11-2020 History of tobacco use Cigarette Smoker [facility] Start: 11-04-2020 End: 07-21-2022 Cigarettes smoked current (pack per day) - Reported 0.5 [facility] Start: 07-21-2022 Tobacco use and exposure Smokeless tobacco non-user [facility] Start: 07-21-2022 End: 04-22-2024 Alcohol intake Current drinker of alcohol (finding) [facility] Start: 06-05-2020 End: 08-01-2020 History SDOH Alcohol Frequency 3 [facility] Start: 06-05-2020 End: 08-01-2020 History SDOH Alcohol Std Drinks 1 [facility] Start: 06-05-2020 End: 08-01-2020 History SDOH Alcohol Binge 2 [facility] Start: 09-16-2018 History SDOH 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 [facility] Start: 01-15-2020 History SDOH Social Connections Living 8 [facility] Start: 06-05-2020 History SDOH Physica l Activity DPW 0 [facility] Start: 07-01-2020 History SDOH Financial 5 [facility] Start: 01-14-2020 Education 12 [facility] Start: 07-21-2022 Tobacco Comment stopped 3 weeks ago [facility] Start: 09-26-2014 [facility] Start: 06-05-2020 End: 11-04-2020 Social connection and isolation panel [facility] Frequency of Communication with Friends and Family Not on file [facility] Do you belong to any clubs or organizations such as pentecostal groups, unions, fraternal or athletic groups, or school groups? No [facility] How often to you hav e a drink containing alcohol? 2-4 times a month [facility] How many standard drinks containing alcohol do you have on a typical day? 1 or 2 [facility] How often do you hav e 6 or more drinks on 1 occasion? Less than monthly [facility] Do you feel stress - tense, restless, nervous, or anxious, or unable to sleep at night because your mind is troubled all the time - these days [OSQ] To some extent [facility] (I/We) worried wheth er (my/our) food would run out before (I/we) got money to buy more. Never true [facility] Start: 07-15-2020 Gender identity Identifies as female gender (finding) [facility] Start: 07-15-2020 Sexual orientation Heterosexual (fin kristina) [facility] Start: 04-04-2025 Tobacco smoking stat us NHIS Current some day smoker [facility] Start: 04-11-2025 End: 04-27-2025 Tobacco smoking status NHIS Current Light tobacco smoker [facility] NEGATED: Highlighted row [facility] NEGATED: Highlighted row Not [facility] Goals Date Patient Goal Desired Activity /State Functional Status Date Assessment Result Facility 05-06-2025 Functional status Bathroom Privilege [facility] Work Phone: 04-11-2023 Functional status Activity Ability Indepe ndent [facility] Work Phone: 04-11-2023 Functional status Ambulates;Bathroom Priv ilege [facility] Work Phone: 11-19-2022 Functional status Ambulates [facility] Work Phone: 11-18-2022 Functional status Assistive Devices None [facility] Work Phone: Mental Status Date Assessment Result Facility 05-06-2025 Cognitive function Voice/Name [facility] Work Phone: 04-11-2025 Cognitive function Voice/Name [facility] Work Phone: 01-24-2024 Cognitive function Voice/Name [facility] Work Phone: 10-10-2023 Cognitive function Level Of Cons ciousness Awake;Alert;Appropriate [facility] Work Phone: 07-29-2023 Cognitive function Level Of Cons ciousness Awake;Alert;Appropriate;Follow s Commands [facility] Work Phone: 05-24-2023 Cognitive function Voice/Name [facility] Work Phone: 05-04-2023 Cognitive function Level Of Cons ciousness Awake;Alert;Appropriate [facility] Work Phone: 04-11-2023 Cognitive function Voice/Name [facility] Work Phone: 04-09-2023 Cognitive function Level Of Cons ciousness Awake;Alert;Appropriate;Follow s Commands [facility] Work Phone: 03-22-2023 Cognitive function Level Of Cons ciousness Awake;Alert;Appropriate;Follow s Commands [facility] Work Phone: 01-21-2023 Cognitive function Voice/Name [facility] Work Phone: 11-19-2022 Cognitive function Voice/Name [facility] Work Phone: 09-05-2022 Cognitive function Level Of Cons ciousness Awake;Alert;Appropriate [facility] Work Phone: 02-22-2022 Cognitive function Level Of Cons ciousness Awake;Alert;Appropriate;Follow s Commands;Responds to vocal stimuli [facility] Work Phone: Clinical Notes 07-17-2019 to 05-06-2025 Note Date & Type Note Facility 05-06-2025 Discharge summary [facility] 05-06-2025 Note [facility] 05-04-2025 Progress note Note Date/Time May 04, 2025 9:53am [facility] Medical Records Department [address] [place] [address] Progress Note - Hospitalist 05/04/25 0742 MR#: [id number] Acct: [id number] Name: JOSEPH RINCON Rep #:[id number] : 1975 50 From: Canelo Myers MD PCP: Dr. Abisai Haley MD Status:ADM IN Location: [place] [address] Reason for Visit Reason for Visit: Diagnoses Acute pancreatitis without necrosis or infection, unspecified (04/26/25) Subjective Subjective Patient seen still remains quite lethargic. Reviewed patient current medicationregimen discontinuing gabapentin, trazodone at nights, scheduled BuSpar as well as hydroxyzine. Also discontinued Dilaudid patient placed on Oxy IR as needed for pain Objective Data Objective Data Vital Signs: Vital Signs Temp Pulse Resp BP Pulse Ox O2 Del Method O2 Flow Rate 98.5 F 88 18 176/85 H 87 Room Air 2 05/04/25 05:00 05/04/25 05:00 05/04/25 05:00 05/04/25 05:00 05/04/25 05:00 05/04/25 06:00 05/04/25 05:00 Oxygen Flow Rate (L/min) 2 Oxygen Delivery Method Room Air Weight: 59.5 kg Body Mass Index (BMI) 22.5 Intake & Output: Intake and Output for Last 24 Hours 05/02/25 05/03/25 05/04/25 23:59 23:59 23:59 Intake Total 3412.5 / 3412.5 3600 / 3600 1097.5 / 1097.5 Balance 3412.5 / 3412.5 3600 / 3600 1097.5 / 1097.5 Medical Nutrition Assessment Dietitian: Malnutrition Criteria Met Start: 04/27/25 14:17 Freq: Status: Active Protocol: Document 04/27/25 14:17 SB (Rec: 04/27/25 14:17 SB [id number]) Nutrition Malnutrition Evidence of Yes Malnutrition Exists Malnutrition (severe Acute Illness/Injury ): Evidenced By Suboptimal Energy Intake (Severe),Weight Loss (Severe) Clinical Problem Acute Disease or Injury Related Malnutrition Etiology severe related to inadequate oral intake Signs/Symptoms as evidenced by 10% unintentional weight loss x <1 month and PO meeting <50% of estimated nutrition needs x 1 month. Status Active Problem Recommendation Dietitian Adjust to regular, fat restriction diet. Recommendations/ Continue 120ml glucerna TID with medpass. Changes Will monitor weight trends. Lab / Micro Data 05/04/25 05:55 05/04/25 05:55 Labs: Laboratory Results - last 24 hr 05/03/25 12:23: POC Glucose 237 H 05/03/25 17:16: POC Glucose 230 H 05/04/25 05:55: WBC 5.9, RBC 2.88 L, Hgb 10.3 L, Hct 30.6 L, MCV 106.3 H, MCH 35.8 H, MCHC 33.7, RDW Std Deviation 49.9 H, RDW Coeff of Braxton 12.8, Plt Count 376, MPV 10.3, Immature Gran % (Auto) 0.300, Neut % (Auto) 58.1, Lymph % (Auto) 23.0, Yates % (Auto) 15.4 H, Eos % (Auto) 2.7, Baso % (Auto) 0.5, Absolute Neuts (auto) 3.4, Absolute Lymphs (auto) 1.36, Nucleated RBC % 0, Sodium 134, Potassium 4.7, Chloride 96 L, Carbon Dioxide 27.3, Anion Gap 11, BUN 6, Creatinine 0.63 L, Estim Creat Clear Calc 94.30, Est GFR (MDRD) Non-Af 109, BUN/Creatinine Ratio 9.6 L, Glucose 171 H, Calcium 9.3, Total Bilirubin 0.35, AST51 H, ALT 45 H, Alkaline Phosphatase 441 H, Total Protein 6.3, Albumin 3.4 L, Globulin 2.9, Albumin/Globulin Ratio 1.1 05/04/25 06:17: POC Glucose 170 H Physical Exam Narrative GENERAL: Somewhat lethargic HEENT: Atraumatic; normocephalic EYES; Anicteric, Normal Conjunctiva NECK; supple, normal thyroid, RESPIRATORY: Diminished to auscultation CARDIOVASCULAR: Regular S1 S2, GI: soft, normoactive bowel sounds, : No Renal angle tenderness; EXTREMITIES: No edema, no clubbing, MUSCULOSKELETAL: no muscle wasting NEURO: Awake; no lateralizing signs. SKIN: No Rash PSYCH; Flat affect Assessment & Plan Assessment/Plan (1) Pancreatitis: PLAN: Plan Patient is a 50-year-old lady with history of alcohol dependence, prior episodesof pancreatitis who presented with abdominal pain. Patient was found to have elevated lipase levels. 1. Acute on chronic pancreatitis ? Patient has been admitted to a monitored bed for symptom management including IV fluids, pain meds as well as antinausea medication. Plan is for patient to follow-up with GI following discharge ? 04/28/2025 patient lipase levels down and symptoms improving ? 04/30/2025; plan is to advance patient's diet ? 05/02/2025; patient pain controlled. 2. Alcohol withdrawal with delirium tremens ? Patient was started on CIWA protocol placed on phenobarb taper. ? 04/30/2025; patient has tolerated phenobarb taper well ?05/02/2025; patient scheduled to complete the phenobarb taper this evening ? 05/03/2025; patient has completed phenobarb taper ? 05/04/2025; discontinued scheduled hydroxyzine given patient's significant lethargy 3. Elevated transaminases ? Patient pattern consistent with alcohol use we will monitor ? 04/28/2025 patient transaminases continue to rise repeat labs ordered in the 4. Dyslipidemia ?Patient is on statin therapy, continued at home dose 5. COPD ? Currently not in exacerbation aerosol treatments as needed 6. Hypertension ? Blood pressure controlled, home medications continued with dose adjustment as needed 7. Diabetes mellitus type 2 ? Held patient oral antihypertensive agent placed on Accu-Cheks AC and at bedtime with sliding scale coverage 8. GERD ? Patient was placed on PPI 9. Tobacco dependence ? Counseled on cessation, offered nicotine patch for tobacco cravings 10. Depression with anxiety ? Patient is on citalopram bupropion as well as buspirone did continue ? 05/04/2025; discontinued patient buspirone in view of his significant lethargy 11. Macrocytosis ? Secondary to chronic alcohol use repeat CBC with differential ordered in a.m. 12. Mild hyponatremia ? Secondary to hypovolemic hyponatremia started on IV fluid with BMP ordered fora.m. 13. Chronic alcohol dependence ? Counseled on cessation 14. Hallucinations ?? Alcohol withdrawal patient denies being jittery. Will continue with monitoring and start patient on phenobarb. Initiated CIWA protocol ? Secondary to alcohol withdrawal management as discussed above 15. Hypophosphatemia -Corrected per protocol, repeat phosphate ordered for 16 Hypomagnesemia -Corrected for protocol, repeat magnesium ordered for a.m. 17. Hypokalemia - Secondary to GI losses. Corrected per protocol repeat labs ordered in a.m. for follow-up ? 04/29/2025; further drop in patient potassium level and order was given for parenteral potassium ? 04/30/2025; potassium down to 2.7. Additional replacement given via both parenteral and oral route 18. Thrombocytopenia ? Secondary to chronic alcohol use monitoring with CBC with differential 19. Anemia ? Secondary to chronic disorder monitoring H&H and transfuse if patient becomes symptomatic or hemoglobin falls below 7 20. DVT prophylaxis ? Patient had been started on enoxaparin given the significant drop in platelet count enoxaparin 21. Severe malnutrition. Related to: inadequate oral intake As evidenced by: 10% unintentional weight loss x <1 month and PO meeting <50% ofestimated nutrition needs x 1 month. With treatment/resources used including: Adjust to regular, fat restriction diet. Continue 120ml glucerna TID with medpass. Will monitor weight trends. 22. Hypophosphatemia ? Secondary to aggressive repletion of patient low phosphate levels. Held patient phosphate 23. Physical deconditioning ? Requested for PT OT eval and social and political studies professor to assist with discharge planning ? 05/03/2025; patient remains physical deconditioning. She is agreeable to being discharged with [facility] for [facility] this was discussed with patient's son Tan was in the room Time spent in the patient's overall evaluation,decision-making process, review of diagnostic data, adjustment of management, discussion with other providers, nursing nursing and ancillary staff involved in patient's care documentation, 35minutes Charges/Coding Visit Charges Inpatient E&M: 99491 Subs Hosp L2 05/04/25 0953 <Electronically signed by Canelo Myers MD> Cosigner Signature (if applicable): CC: ~ Signed [facility] Work Phone: 1(949) 650-114306-06-2025 Progress note [facility] Medical Records Department [address] [place] [address] Progress Note - Hospitalist 05/04/25 0742 MR#: [id number] Acct: [id number] Name: JOSEPH RINCON Rep #:[id number] : 1975 50 From: Canelo Myers MD PCP: Dr. Abisai Haley MD Status:ADM IN Location: [place] [address] Reason for Visit Reason for Visit: Diagnoses Acute pancreatitis without necrosis or infection, unspecified (04/26/25) Subjective Subjective Patient seen still remains quite lethargic. Reviewed patient current medicationregimen discontinuing gabapentin, trazodone at nights, scheduled BuSpar as well as hydroxyzine. Also discontinued Dilaudid patient placed on Oxy IR as needed for pain Objective Data Objective Data Vital Signs: Vital Signs Temp Pulse Resp BP Pulse Ox O2 Del Method O2 Flow Rate 98.5 F 88 18 176/85 H 87 Room Air 2 05/04/25 05:00 05/04/25 05:00 05/04/25 05:00 05/04/25 05:00 05/04/25 05:00 05/04/25 06:00 05/04/25 05:00 Oxygen Flow Rate (L/min) 2 Oxygen Delivery Method Room Air Weight: 59.5 kg Body Mass Index (BMI) 22.5 Intake & Output: Intake and Output for Last 24 Hours 05/02/25 05/03/25 05/04/25 23:59 23:59 23:59 Intake Total 3412.5 / 3412.5 3600 / 3600 1097.5 / 1097.5 Balance 3412.5 / 3412.5 3600 / 3600 1097.5 / 1097.5 Medical Nutrition Assessment Dietitian: Malnutrition Criteria Met Start: 04/27/25 14:17 Freq: Status: Active Protocol: Document 04/27/25 14:17 SB (Rec: 04/27/25 14:17 SB [id number]) Nutrition Malnutrition Evidence of Yes Malnutrition Exists Malnutrition (severe Acute Illness/Injury ): Evidenced By Suboptimal Energy Intake (Severe),Weight Loss (Severe) Clinical Problem Acute Disease or Injury Related Malnutrition Etiology severe related to inadequate oral intake Signs/Symptoms as evidenced by 10% unintentional weight loss x <1 month and PO meeting <50% of estimated nutrition needs x 1 month. Status Active Problem Recommendation Dietitian Adjust to regular, fat restriction diet. Recommendations/ Continue 120ml glucerna TID with medpass. Changes Will monitor weight trends. Lab / Micro Data 05/04/25 05:55 05/04/25 05:55 Labs: Laboratory Results - last 24 hr 05/03/25 12:23: POC Glucose 237 H 05/03/25 17:16: POC Glucose 230 H 05/04/25 05:55: WBC 5.9, RBC 2.88 L, Hgb 10.3 L, Hct 30.6 L, MCV 106.3 H, MCH 35.8 H, MCHC 33.7, RDW Std Deviation 49.9 H, RDW Coeff of Braxton 12.8, Plt Count 376, MPV 10.3, Immature Gran % (Auto) 0.300, Neut % (Auto) 58.1, Lymph % (Auto) 23.0, Yates % (Auto) 15.4 H, Eos % (Auto) 2.7, Baso % (Auto) 0.5, Absolute Neuts (auto) 3.4, Absolute Lymphs (auto) 1.36, Nucleated RBC % 0, Sodium 134, Potassium 4.7, Chloride 96 L, Carbon Dioxide 27.3, Anion Gap 11, BUN 6, Creatinine 0.63 L, Estim Creat Clear Calc 94.30, Est GFR (MDRD) Non-Af 109, BUN/Creatinine Ratio 9.6 L, Glucose 171 H, Calcium 9.3, Total Bilirubin 0.35, AST51 H, ALT 45 H, Alkaline Phosphatase 441 H, Total Protein 6.3, Albumin 3.4 L, Globulin 2.9, Albumin/Globulin Ratio 1.1 05/04/25 06:17: POC Glucose 170 H Physical Exam Narrative GENERAL: Somewhat lethargic HEENT: Atraumatic; normocephalic EYES; Anicteric, Normal Conjunctiva NECK; supple, normal thyroid, RESPIRATORY: Diminished to auscultation CARDIOVASCULAR: Regular S1 S2, GI: soft, normoactive bowel sounds, : No Renal angle tenderness; EXTREMITIES: No edema, no clubbing, MUSCULOSKELETAL: no muscle wasting NEURO: Awake; no lateralizing signs. SKIN: No Rash PSYCH; Flat affect Assessment & Plan Assessment/Plan (1) Pancreatitis: PLAN: Plan Patient is a 50-year-old lady with history of alcohol dependence, prior episodesof pancreatitis whopresented with abdominal pain. Patient was found to have elevated lipase levels. 1. Acute on chronic pancreatitis ? Patient has been admitted to a monitored bed for symptom management including IV fluids, pain meds as well as antinausea medication. Plan is for patient to follow-up with GI following discharge ? 04/28/2025 patient lipase levels down and symptoms improving ? 04/30/2025; plan is to advance patient's diet ? 05/02/2025; patient pain controlled. 2. Alcohol withdrawal with delirium tremens ? Patient was started on CIWA protocol placed on phenobarb taper. ? 04/30/2025; patient has tolerated phenobarb taper well ?05/02/2025; patient scheduled to complete the phenobarb taper this evening ? 05/03/2025; patient has completed phenobarb taper ? 05/04/2025; discontinued scheduled hydroxyzine given patient's significant lethargy 3. Elevated transaminases ? Patient pattern consistent with alcohol use we will monitor ? 04/28/2025 patient transaminases continue to rise repeat labs ordered in the 4. Dyslipidemia ?Patient is on statin therapy, continued at home dose 5. COPD ? Currently not in exacerbation aerosol treatments as needed 6. Hypertension ? Blood pressure controlled, home medications continued with dose adjustment as needed 7. Diabetes mellitus type 2 ? Held patient oral antihypertensive agent placed on Accu-Cheks AC and at bedtime with sliding scale coverage 8. GERD ? Patient was placed on PPI 9. Tobacco dependence ? Counseled on cessation, offered nicotine patch for tobacco cravings 10. Depression with anxiety ? Patient is on citalopram bupropion as well as buspirone did continue ? 05/04/2025; discontinued patient buspirone in view of his significant lethargy 11. Macrocytosis ? Secondary to chronic alcohol use repeat CBC with differential ordered in a.m. 12. Mild hyponatremia ? Secondary to hypovolemic hyponatremia started on IV fluid with BMP ordered fora.m. 13. Chronic alcohol dependence ? Counseled on cessation 14. Hallucinations ?? Alcohol withdrawal patient denies being jittery. Will continue with monitoring and start patienton phenobarb. Initiated CIWA protocol ? Secondary to alcohol withdrawal management as discussed above 15. Hypophosphatemia -Corrected per protocol, repeat phosphate ordered for 16 Hypomagnesemia -Corrected for protocol, repeat magnesium ordered for a.m. 17. Hypokalemia - Secondary to GI losses. Corrected per protocol repeat labs ordered in a.m. for follow-up ? 04/29/2025; further drop in patient potassium level and order was given for parenteral potassium ? 04/30/2025; potassium down to 2.7. Additional replacement given via both parenteral and oral route 18. Thrombocytopenia ? Secondary to chronic alcohol use monitoring with CBC with differential 19. Anemia ? Secondary to chronic disorder monitoring H&H and transfuse if patient becomes symptomatic or hemoglobin falls below 7 20. DVT prophylaxis ? Patient had been started on enoxaparin given the significant drop in platelet count enoxaparin 21. Severe malnutrition. Related to: inadequate oral intake As evidenced by: 10% unintentional weight loss x <1 month and PO meeting <50% ofestimated nutrition needs x 1 month. With treatment/resources used including: Adjust to regular, fat restriction diet. Continue 120ml glucerna TID with medpass. Will monitor weight trends. 22. Hypophosphatemia ? Secondary to aggressive repletion of patient low phosphate levels. Held patient phosphate 23. Physical deconditioning ? Requested for PT OT eval and social and political studies professor to assist with discharge planning ? 05/03/2025; patient remains physical deconditioning. She is agreeable to being discharged with [facility] this was discussed with patient's son Tan was in the room Time spent in the patient's overall evaluation,decision-making process, review of diagnostic data, adjustment of management, discussion with other providers, nursing nursing and ancillary staff involved in patient's care documentation, 35minutes Charges/Coding Visit Charges Inpatient E&M: 49904 Subs Hosp L2 05/04/25 0953 Cosigner Signature (if applicable): CC: ~ Signed [facility]06-05-2025 Progress note Author Canelo Myers [facility] Note Date/Time May 03, 2025 11:37 am [facility] Medical Records Department [address] [place] [address] Progress Note - Hospitalist 05/03/25 1136 MR#: [id number] Acct: [id number] Name: JOSEPH RINCON Rep #:[id number] : 1975 50 From: Canelo Myers MD PCP: Dr. Abisai Haley MD Status:ADM IN Location: [place] [address] Reason for Visit Reason for Visit: Diagnoses Acute pancreatitis without necrosis or infection, unspecified (04/26/25) Subjective Subjective Patient has completed phenobarb taper. She however remains physically deconditioned. She is agreeable to being discharged to a [facility] facility for [facility]hab Objective Data Objective Data Vital Signs: Vital Signs Temp Pulse Resp BP Pulse Ox O2 Del Method O2 Flow Rate 97.5 F L 102 H 18 141/80 H 90 Room Air 3 05/03/25 05:57 05/03/25 10:04 05/03/25 06:50 05/03/25 10:04 05/03/25 06:50 05/03/25 06:50 05/03/25 01:10 Oxygen Flow Rate (L/min) 3 Oxygen Delivery Method Room Air Weight: 59.5 kg Body Mass Index (BMI) 22.5 Intake & Output: Intake and Output for Last 24 Hours 05/01/25 05/02/25 05/03/25 23:59 23:59 23:59 Intake Total 3970 / 3970 3412.5 / 3412.5 1000 / 1000 Balance 3970 / 3970 3412.5 / 3412.5 1000 / 1000 Medical Nutrition Assessment Dietitian: Malnutrition Criteria Met Start: 04/27/25 14:17 Freq: Status: Active Protocol: Document 04/27/25 14:17 SB (Rec: 04/27/25 14:17 SB [id number]) Nutrition Malnutrition Evidence of Yes Malnutrition Exists Malnutrition (severe Acute Illness/Injury ): Evidenced By Suboptimal Energy Intake (Severe),Weight Loss (Severe) Clinical Problem Acute Disease or Injury Related Malnutrition Etiology severe related to inadequate oral intake Signs/Symptoms as evidenced by 10% unintentional weight loss x <1 month and PO meeting <50% of estimated nutrition needs x 1 month. Status Active Problem Recommendation Dietitian Adjust to regular, fat restriction diet. Recommendations/ Continue 120ml glucerna TID with medpass. Changes Will monitor weight trends. Lab / Micro Data 05/03/25 05:08 05/03/25 05:08 Labs: Laboratory Results - last 24 hr 05/02/25 16:35: POC Glucose 288 H 05/03/25 05:08: WBC 5.8, RBC 2.92 L, Hgb 10.4 L, Hct 31.0 L, MCV 106.2 H, MCH 35.6 H, MCHC 33.5, RDW Std Deviation 49.1 H, RDW Coeff of Braxton 12.5, Plt Count 297, MPV 10.2, Immature Gran % (Auto) 0.300, Neut % (Auto) 61.1, Lymph % (Auto) 19.7, Yates % (Auto) 15.1 H, Eos % (Auto) 3.1, Baso % (Auto) 0.7, Absolute Neuts (auto) 3.5, Absolute Lymphs (auto) 1.14, Nucleated RBC % 0, Sodium 135, Potassium 4.8, Chloride 97 L, Carbon Dioxide 28.2, Anion Gap 9, BUN 7, Creatinine 0.58 L, Estim Creat Clear Calc 102.43, Est GFR (MDRD) Non-Af 112, BUN/Creatinine Ratio 12.9, Glucose 227 H, Calcium 8.5, Total Bilirubin 0.32, AST48 H, ALT 38 H, Alkaline Phosphatase 311 H, Total Protein 5.9, Albumin 3.1 L, Globulin 2.8, Albumin/Globulin Ratio 1.1 05/03/25 06:02: POC Glucose 220 H Physical Exam Narrative GENERAL: Tremulous HEENT: Atraumatic; normocephalic EYES; Anicteric, Normal Conjunctiva NECK; supple, normal thyroid, RESPIRATORY: Diminished to auscultation CARDIOVASCULAR: Regular S1 S2, GI: soft, normoactive bowel sounds, : No Renal angle tenderness; EXTREMITIES: No edema, no clubbing, MUSCULOSKELETAL: no muscle wasting NEURO: Awake; no lateralizing signs. SKIN: No Rash PSYCH; Flat affect Assessment & Plan Assessment/Plan (1) Pancreatitis: PLAN: Plan Patient is a 50-year-old lady with history of alcohol dependence, prior episodesof pancreatitis who presented with abdominal pain. Patient was found to have elevated lipase levels. 1. Acute on chronic pancreatitis ? Patient has been admitted to a monitored bed for symptom management including IV fluids, pain meds as well as antinausea medication. Plan is for patient to follow-up with GI following discharge ? 04/28/2025 patient lipase levels down and symptoms improving ? 04/30/2025; plan is to advance patient's diet ? 05/02/2025; patient pain controlled. 2. Alcohol withdrawal with delirium tremens ? Patient was started on CIWA protocol placed on phenobarb taper. ? 04/30/2025; patient has tolerated phenobarb taper well ?05/02/2025; patient scheduled to complete the phenobarb taper this evening ? 05/03/2025; patient has completed phenobarb taper 3. Elevated transaminases ? Patient pattern consistent with alcohol use we will monitor ? 04/28/2025 patient transaminases continue to rise repeat labs ordered in the 4. Dyslipidemia ?Patient is on statin therapy, continued at home dose 5. COPD ? Currently not in exacerbation aerosol treatments as needed 6. Hypertension ? Blood pressure controlled, home medications continued with dose adjustment as needed 7. Diabetes mellitus type 2 ? Held patient oral antihypertensive agent placed on Accu-Cheks AC and at bedtime with sliding scale coverage 8. GERD ? Patient was placed on PPI 9. Tobacco dependence ? Counseled on cessation, offered nicotine patch for tobacco cravings 10. Depression with anxiety ? Patient is on citalopram bupropion as well as buspirone did continue 11. Macrocytosis ? Secondary to chronic alcohol use repeat CBC with differential ordered in a.m. 12. Mild hyponatremia ? Secondary to hypovolemic hyponatremia started on IV fluid with BMP ordered fora.m. 13. Chronic alcohol dependence ? Counseled on cessation 14. Hallucinations ?? Alcohol withdrawal patient denies being jittery. Will continue with monitoring and start patient on phenobarb. Initiated CIWA protocol ? Secondary to alcohol withdrawal management as discussed above 15. Hypophosphatemia -Corrected per protocol, repeat phosphate ordered for 16 Hypomagnesemia -Corrected for protocol, repeat magnesium ordered for a.m. 17. Hypokalemia - Secondary to GI losses. Corrected per protocol repeat labs ordered in a.m. for follow-up ? 04/29/2025; further drop in patient potassium level and order was given for parenteral potassium ? 04/30/2025; potassium down to 2.7. Additional replacement given via both parenteral and oral route 18. Thrombocytopenia ? Secondary to chronic alcohol use monitoring with CBC with differential 19. Anemia ? Secondary to chronic disorder monitoring H&H and transfuse if patient becomes symptomatic or hemoglobin falls below 7 20. DVT prophylaxis ? Patient had been started on enoxaparin given the significant drop in platelet count enoxaparin 21. Severe malnutrition. Related to: inadequate oral intake As evidenced by: 10% unintentional weight loss x <1 month and PO meeting <50% ofestimated nutrition needs x 1 month. With treatment/resources used including: Adjust to regular, fat restriction diet. Continue 120ml glucerna TID with medpass. Will monitor weight trends. 22. Hypophosphatemia ? Secondary to aggressive repletion of patient low phosphate levels. Held patient phosphate 23. Physical deconditioning ? Requested for PT OT eval and social and political studies professor to assist with discharge planning ? 05/03/2025; patient remains physical deconditioning. She is agreeable to [facility] this was discussed with patient's son Tan was in the room Charges/Coding Visit Charges Inpatient E&M: 71907 Subs Hosp L2 05/03/25 1137 <Electronically signed by Canelo Myers MD> Cosigner Signature (if applicable): CC: ~ Signed [facility] Work Phone: [phone]) 564-239606-05-2025 Progress note [facility] Medical Records Department [address] [place] [id number] Progress Note - Hospitalist 05/03/25 1136 MR#: [id number] Acct: [id number] Name: JOSEPH RINCON Rep #:[id number] : 1975 50 From: Canelo Myers MD PCP: Dr. Abisai Haley MD Status:ADM IN Location: [place] [address] Reason for Visit Reason for Visit: Diagnoses Acute pancreatitis without necrosis or infection, unspecified (04/26/25) Subjective Subjective Patient has completed phenobarb taper. She however remains physically deconditioned. She is agreeable to being [facility] to a [facility] Objective Data Objective Data Vital Signs: Vital Signs Temp Pulse Resp BP Pulse Ox O2 Del Method O2 Flow Rate 97.5 F L 102 H 18 141/80 H 90 Room Air 3 05/03/25 05:57 05/03/25 10:04 05/03/25 06:50 05/03/25 10:04 05/03/25 06:50 05/03/25 06:50 05/03/25 01:10 Oxygen Flow Rate (L/min) 3 Oxygen Delivery Method Room Air Weight: 59.5 kg Body Mass Index (BMI) 22.5 Intake & Output: Intake and Output for Last 24 Hours 05/01/25 05/02/25 05/03/25 23:59 23:59 23:59 Intake Total 3970 / 3970 3412.5 / 3412.5 1000 / 1000 Balance 3970 / 3970 3412.5 / 3412.5 1000 / 1000 Medical Nutrition Assessment Dietitian: Malnutrition Criteria Met Start: 04/27/25 14:17 Freq: Status: Active Protocol: Document 04/27/25 14:17 SB (Rec: 04/27/25 14:17 SB [id number]) Nutrition Malnutrition Evidence of Yes Malnutrition Exists Malnutrition (severe Acute Illness/Injury ): Evidenced By Suboptimal Energy Intake (Severe),Weight Loss (Severe) Clinical Problem Acute Disease or Injury Related Malnutrition Etiology severe related to inadequate oral intake Signs/Symptoms as evidenced by 10% unintentional weight loss x <1 month and PO meeting <50% of estimated nutrition needs x 1 month. Status Active Problem Recommendation Dietitian Adjust to regular, fat restriction diet. Recommendations/ Continue 120ml glucerna TID with medpass. Changes Will monitor weight trends. Lab / Micro Data 05/03/25 05:08 05/03/25 05:08 Labs: Laboratory Results - last 24 hr 05/02/25 16:35: POC Glucose 288 H 05/03/25 05:08: WBC 5.8, RBC 2.92 L, Hgb 10.4 L, Hct 31.0 L, MCV 106.2 H, MCH 35.6 H, MCHC 33.5, RDW Std Deviation 49.1 H, RDW Coeff of Braxton 12.5, Plt Count 297, MPV 10.2, Immature Gran % (Auto) 0.300, Neut % (Auto) 61.1, Lymph % (Auto) 19.7, Yates % (Auto) 15.1 H, Eos % (Auto) 3.1, Baso % (Auto) 0.7, Absolute Neuts (auto) 3.5, Absolute Lymphs (auto) 1.14, Nucleated RBC % 0, Sodium 135, Potassium 4.8, Chloride 97 L, Carbon Dioxide 28.2, Anion Gap 9, BUN 7, Creatinine 0.58 L, Estim Creat Clear Calc 102.43, Est GFR (MDRD) Non-Af 112, BUN/Creatinine Ratio 12.9, Glucose 227 H, Calcium 8.5, Total Bilirubin 0.32, AST48 H, ALT 38 H, Alkaline Phosphatase 311 H, Total Protein 5.9, Albumin 3.1 L, Globulin 2.8, Albumin/Globulin Ratio 1.1 05/03/25 06:02: POC Glucose 220 H Physical Exam Narrative GENERAL: Tremulous HEENT: Atraumatic; normocephalic EYES; Anicteric, Normal Conjunctiva NECK; supple, normal thyroid, RESPIRATORY: Diminished to auscultation CARDIOVASCULAR: Regular S1 S2, GI: soft, normoactive bowel sounds, : No Renal angle tenderness; EXTREMITIES: No edema, no clubbing, MUSCULOSKELETAL: no muscle wasting NEURO: Awake; no lateralizing signs. SKIN: No Rash PSYCH; Flat affect Assessment & Plan Assessment/Plan (1) Pancreatitis: PLAN: Plan Patient is a 50-year-old lady with history of alcohol dependence, prior episodesof pancreatitis whopresented with abdominal pain. Patient was found to have elevated lipase levels. 1. Acute on chronic pancreatitis ? Patient has been admitted to a monitored bed for symptom management including IV fluids, pain meds as well as antinausea medication. Plan is for patient to follow-up with GI following discharge ? 04/28/2025 patient lipase levels down and symptoms improving ? 04/30/2025; plan is to advance patient's diet ? 05/02/2025; patient pain controlled. 2. Alcohol withdrawal with delirium tremens ? Patient was started on CIWA protocol placed on phenobarb taper. ? 04/30/2025; patient has tolerated phenobarb taper well ?05/02/2025; patient scheduled to complete the phenobarb taper this evening ? 05/03/2025; patient has completed phenobarb taper 3. Elevated transaminases ? Patient pattern consistent with alcohol use we will monitor ? 04/28/2025 patient transaminases continue to rise repeat labs ordered in the 4. Dyslipidemia ?Patient is on statin therapy, continued at home dose 5. COPD ? Currently not in exacerbation aerosol treatments as needed 6. Hypertension ? Blood pressure controlled, home medications continued with dose adjustment as needed 7. Diabetes mellitus type 2 ? Held patient oral antihypertensive agent placed on Accu-Cheks AC and at bedtime with sliding scale coverage 8. GERD ? Patient was placed on PPI 9. Tobacco dependence ? Counseled on cessation, offered nicotine patch for tobacco cravings 10. Depression with anxiety ? Patient is on citalopram bupropion as well as buspirone did continue 11. Macrocytosis ? Secondary to chronic alcohol use repeat CBC with differential ordered in a.m. 12. Mild hyponatremia ? Secondary to hypovolemic hyponatremia started on IV fluid with BMP ordered fora.m. 13. Chronic alcohol dependence ? Counseled on cessation 14. Hallucinations ?? Alcohol withdrawal patient denies being jittery. Will continue with monitoring and start patienton phenobarb. Initiated CIWA protocol ? Secondary to alcohol withdrawal management as discussed above 15. Hypophosphatemia -Corrected per protocol, repeat phosphate ordered for 16 Hypomagnesemia -Corrected for protocol, repeat magnesium ordered for a.m. 17. Hypokalemia - Secondary to GI losses. Corrected per protocol repeat labs ordered in a.m. for follow-up ? 04/29/2025; further drop in patient potassium level and order was given for parenteral potassium ? 04/30/2025; potassium down to 2.7. Additional replacement given via both parenteral and oral route 18. Thrombocytopenia ? Secondary to chronic alcohol use monitoring with CBC with differential 19. Anemia ? Secondary to chronic disorder monitoring H&H and transfuse if patient becomes symptomatic or hemoglobin falls below 7 20. DVT prophylaxis ? Patient had been started on enoxaparin given the significant drop in platelet count enoxaparin 21. Severe malnutrition. Related to: inadequate oral intake As evidenced by: 10% unintentional weight loss x <1 month and PO meeting <50% ofestimated nutrition needs x 1 month. With treatment/resources used including: Adjust to regular, fat restriction diet. Continue 120ml glucerna TID with medpass. Will monitor weight trends. 22. Hypophosphatemia ? Secondary to aggressive repletion of patient low phosphate levels. Held patient phosphate 23. Physical deconditioning ? Requested for PT OT eval and social and political studies professor to assist with discharge planning ? 05/03/2025; patient remains physical deconditioning. She is agreeable to being discharged with [facility] this was discussed with patient's son Tan was in the room Charges/Coding Visit Charges Inpatient E&M: 72218 Subs Hosp L2 05/03/25 1137 Cosigner Signature (if applicable): CC: ~ Signed [facility]06-04-2025 Progress note Author Canelo Myers [facility] Note Date/Time May 02, 2025 11:07 am [facility] Medical Records Department [address] [place] [address] Progress Note - Hospitalist 05/02/25 0736 MR#: [id number] Acct: [id number] Name: JOSEPH RINCON Rep #:[id number] : 1975 50 From: Canelo Myers MD PCP: Dr. Abisai Haley MD Status:ADM IN Location: [place] [address] Reason for Visit Reason for Visit: Diagnoses Acute pancreatitis without necrosis or infection, unspecified (04/26/25) Subjective Subjective Patient seen participating in therapy patient remains significantly tremulous atrest. Patient is scheduled to finish the phenobarb taper today Objective Data Objective Data Vital Signs: Vital Signs Temp Pulse Resp BP Pulse Ox O2 Del Method O2 Flow Rate 98.0 F 88 14 160/98 H 91 Room Air 2 05/02/25 03:45 05/02/25 07:10 05/02/25 07:10 05/02/25 03:45 05/02/25 07:10 05/02/25 07:10 05/01/25 10:35 Oxygen Flow Rate (L/min) 2 Oxygen Delivery Method Room Air Weight: 59.5 kg Body Mass Index (BMI) 22.5 Intake & Output: Intake and Output for Last 24 Hours 04/30/25 05/01/25 05/02/25 23:59 23:59 23:59 Intake Total 6807.5 / 6807.5 3970 / 3970 1000 / 1000 Output Total 6 / 6 Balance 6801.5 / 6801.5 3970 / 3970 1000 / 1000 Medical Nutrition Assessment Dietitian: Malnutrition Criteria Met Start: 04/27/25 14:17 Freq: Status: Active Protocol: Document 04/27/25 14:17 SB (Rec: 04/27/25 14:17 SB [id number]) Nutrition Malnutrition Evidence of Yes Malnutrition Exists Malnutrition (severe Acute Illness/Injury ): Evidenced By Suboptimal Energy Intake (Severe),Weight Loss (Severe) Clinical Problem Acute Disease or Injury Related Malnutrition Etiology severe related to inadequate oral intake Signs/Symptoms as evidenced by 10% unintentional weight loss x <1 month and PO meeting <50% of estimated nutrition needs x 1 month. Status Active Problem Recommendation Dietitian Adjust to regular, fat restriction diet. Recommendations/ Continue 120ml glucerna TID with medpass. Changes Will monitor weight trends. Lab / Micro Data 05/02/25 05:45 05/02/25 05:45 Labs: Laboratory Results - last 24 hr 05/01/25 11:31: POC Glucose 316 H 05/01/25 16:55: POC Glucose 234 H 05/02/25 05:45: WBC 5.2, RBC 2.82 L, Hgb 10.4 L, Hct 30.1 L, MCV 106.7 H, MCH 36.9 H, MCHC 34.6, RDW Std Deviation 49.4 H, RDW Coeff of Braxton 12.5, Plt Count 247, MPV 10.3, Immature Gran % (Auto) 0.600, Neut % (Auto) 57.2, Lymph % (Auto) 22.5, Yates % (Auto) 15.8 H, Eos % (Auto) 3.3, Baso % (Auto) 0.6, Absolute Neuts (auto) 3.0, Absolute Lymphs (auto) 1.17, Nucleated RBC % 0, Sodium 134, Potassium 4.2, Chloride 95 L, Carbon Dioxide 28.5, Anion Gap 11, BUN 7, Creatinine 0.52 L, Estim Creat Clear Calc 114.25, Est GFR (MDRD) Non-Af 115, BUN/Creatinine Ratio 13.6, Glucose 197 H, Calcium 8.7, Phosphorus 5.0 H, Magnesium 1.2 L, Total Bilirubin 0.49, AST 40 H, ALT 33, Alkaline Phosphatase 230H, Total Protein 5.8 L, Albumin 3.1 L, Globulin 2.7, Albumin/Globulin Ratio 1.2 05/02/25 06:46: POC Glucose 196 H Physical Exam Narrative GENERAL: Tremulous HEENT: Atraumatic; normocephalic EYES; Anicteric, Normal Conjunctiva NECK; supple, normal thyroid, RESPIRATORY: Diminished to auscultation CARDIOVASCULAR: Regular S1 S2, GI: soft, normoactive bowel sounds, : No Renal angle tenderness; EXTREMITIES: No edema, no clubbing, MUSCULOSKELETAL: no muscle wasting NEURO: Awake; no lateralizing signs. SKIN: No Rash PSYCH; Flat affect Assessment & Plan Assessment/Plan (1) Pancreatitis: PLAN: Plan Patient is a 50-year-old lady with history of alcohol dependence, prior episodesof pancreatitis who presented with abdominal pain. Patient was found to have elevated lipase levels. 1. Acute on chronic pancreatitis ? Patient has been admitted to a monitored bed for symptom management including IV fluids, pain meds as well as antinausea medication. Plan is for patient to follow-up with GI following discharge ? 04/28/2025 patient lipase levels down and symptoms improving ? 04/30/2025; plan is to advance patient's diet ? 05/02/2025; patient pain controlled. 2. Alcohol withdrawal with delirium tremens ? Patient was started on CIWA protocol placed on phenobarb taper. ? 04/30/2025; patient has tolerated phenobarb taper well ?05/02/2025; patient scheduled to complete the phenobarb taper this evening 3. Elevated transaminases ? Patient pattern consistent with alcohol use we will monitor ? 04/28/2025 patient transaminases continue to rise repeat labs ordered in the 4. Dyslipidemia ?Patient is on statin therapy, continued at home dose 5. COPD ? Currently not in exacerbation aerosol treatments as needed 6. Hypertension ? Blood pressure controlled, home medications continued with dose adjustment as needed 7. Diabetes mellitus type 2 ? Held patient oral antihypertensive agent placed on Accu-Cheks AC and at bedtime with sliding scale coverage 8. GERD ? Patient was placed on PPI 9. Tobacco dependence ? Counseled on cessation, offered nicotine patch for tobacco cravings 10. Depression with anxiety ? Patient is on citalopram bupropion as well as buspirone did continue 11. Macrocytosis ? Secondary to chronic alcohol use repeat CBC with differential ordered in a.m. 12. Mild hyponatremia ? Secondary to hypovolemic hyponatremia started on IV fluid with BMP ordered fora.m. 13. Chronic alcohol dependence ? Counseled on cessation 14. Hallucinations ?? Alcohol withdrawal patient denies being jittery. Will continue with monitoring and start patient on phenobarb. Initiated CIWA protocol ? Secondary to alcohol withdrawal management as discussed above 15. Hypophosphatemia -Corrected per protocol, repeat phosphate ordered for 16 Hypomagnesemia -Corrected for protocol, repeat magnesium ordered for a.m. 17. Hypokalemia - Secondary to GI losses. Corrected per protocol repeat labs ordered in a.m. for follow-up ? 04/29/2025; further drop in patient potassium level and order was given for parenteral potassium ? 04/30/2025; potassium down to 2.7. Additional replacement given via both parenteral and oral route 18. Thrombocytopenia ? Secondary to chronic alcohol use monitoring with CBC with differential 19. Anemia ? Secondary to chronic disorder monitoring H&H and transfuse if patient becomes symptomatic or hemoglobin falls below 7 20. DVT prophylaxis ? Patient had been started on enoxaparin given the significant drop in platelet count enoxaparin 21. Severe malnutrition. Related to: inadequate oral intake As evidenced by: 10% unintentional weight loss x <1 month and PO meeting <50% ofestimated nutrition needs x 1 month. With treatment/resources used including: Adjust to regular, fat restriction diet. Continue 120ml glucerna TID with medpass. Will monitor weight trends. 22. Hypophosphatemia ? Secondary to aggressive repletion of patient low phosphate levels. Held patient phosphate 23. Physical deconditioning ? Requested for PT OT eval and social and political studies professor to assist with discharge planning Charges/Coding Visit Charges Inpatient E&M: 90483 Subs Hosp L2 05/02/25 1107 <Electronically signed by Canelo Myers MD> Cosigner Signature (if applicable): CC: ~ Signed [facility] Work Phone: 1(667) 198-120706-04-2025 Progress note [facility] Medical Records Department [address] [place] [address] Progress Note - Hospitalist 05/02/25 0736 MR#: [id number] Acct: [id number] Name: JOSEPH RINCON Rep #:[id number] : 1975 50 From: Canelo Myers MD PCP: Dr. Abisai Haley MD Status:ADM IN Location: [place] [address] Reason for Visit Reason for Visit: Diagnoses Acute pancreatitis without necrosis or infection, unspecified (04/26/25) Subjective Subjective Patient seen participating in therapy patient remains significantly tremulous atrest. Patient is scheduled to finish the phenobarb taper today Objective Data Objective Data Vital Signs: Vital Signs Temp Pulse Resp BP Pulse Ox O2 Del Method O2 Flow Rate 98.0 F 88 14 160/98 H 91 Room Air 2 05/02/25 03:45 05/02/25 07:10 05/02/25 07:10 05/02/25 03:45 05/02/25 07:10 05/02/25 07:10 05/01/25 10:35 Oxygen Flow Rate (L/min) 2 Oxygen Delivery Method Room Air Weight: 59.5 kg Body Mass Index (BMI) 22.5 Intake & Output: Intake and Output for Last 24 Hours 04/30/25 05/01/25 05/02/25 23:59 23:59 23:59 Intake Total 6807.5 / 6807.5 3970 / 3970 1000 / 1000 Output Total 6 / 6 Balance 6801.5 / 6801.5 3970 / 3970 1000 / 1000 Medical Nutrition Assessment Dietitian: Malnutrition Criteria Met Start: 04/27/25 14:17 Freq: Status: Active Protocol: Document 04/27/25 14:17 SB (Rec: 04/27/25 14:17 SB [id number]) Nutrition Malnutrition Evidence of Yes Malnutrition Exists Malnutrition (severe Acute Illness/Injury ): Evidenced By Suboptimal Energy Intake (Severe),Weight Loss (Severe) Clinical Problem Acute Disease or Injury Related Malnutrition Etiology severe related to inadequate oral intake Signs/Symptoms as evidenced by 10% unintentional weight loss x <1 month and PO meeting <50% of estimated nutrition needs x 1 month. Status Active Problem Recommendation Dietitian Adjust to regular, fat restriction diet. Recommendations/ Continue 120ml glucerna TID with medpass. Changes Will monitor weight trends. Lab / Micro Data 05/02/25 05:45 05/02/25 05:45 Labs: Laboratory Results - last 24 hr 05/01/25 11:31: POC Glucose 316 H 05/01/25 16:55: POC Glucose 234 H 05/02/25 05:45: WBC 5.2, RBC 2.82 L, Hgb 10.4 L, Hct 30.1 L, MCV 106.7 H, MCH 36.9 H, MCHC 34.6, RDW Std Deviation 49.4 H, RDW Coeff of Braxton 12.5, Plt Count 247, MPV 10.3, Immature Gran % (Auto) 0.600, Neut % (Auto) 57.2, Lymph % (Auto) 22.5, Yates % (Auto) 15.8 H, Eos % (Auto) 3.3, Baso % (Auto) 0.6, Absolute Neuts (auto) 3.0, Absolute Lymphs (auto) 1.17, Nucleated RBC % 0, Sodium 134, Potassium 4.2, Chloride 95 L, Carbon Dioxide 28.5, Anion Gap 11, BUN 7, Creatinine 0.52 L, Estim Creat Clear Calc 114.25, Est GFR (MDRD) Non-Af 115, BUN/Creatinine Ratio 13.6, Glucose 197 H, Calcium 8.7, Phosphorus 5.0 H, Magnesium 1.2 L, Total Bilirubin 0.49, AST 40 H, ALT 33, Alkaline Phosphatase 230H, TotalProtein 5.8 L, Albumin 3.1 L, Globulin 2.7, Albumin/Globulin Ratio 1.2 05/02/25 06:46: POC Glucose 196 H Physical Exam Narrative GENERAL: Tremulous HEENT: Atraumatic; normocephalic EYES; Anicteric, Normal Conjunctiva NECK; supple, normal thyroid, RESPIRATORY: Diminished to auscultation CARDIOVASCULAR: Regular S1 S2, GI: soft, normoactive bowel sounds, : No Renal angle tenderness; EXTREMITIES: No edema, no clubbing, MUSCULOSKELETAL: no muscle wasting NEURO: Awake; no lateralizing signs. SKIN: No Rash PSYCH; Flat affect Assessment & Plan Assessment/Plan (1) Pancreatitis: PLAN: Plan Patient is a 50-year-old lady with history of alcohol dependence, prior episodesof pancreatitis whopresented with abdominal pain. Patient was found to have elevated lipase levels. 1. Acute on chronic pancreatitis ? Patient has been admitted to a monitored bed for symptom management including IV fluids, pain meds as well as antinausea medication. Plan is for patient to follow-up with GI following discharge ? 04/28/2025 patient lipase levels down and symptoms improving ? 04/30/2025; plan is to advance patient's diet ? 05/02/2025; patient pain controlled. 2. Alcohol withdrawal with delirium tremens ? Patient was started on CIWA protocol placed on phenobarb taper. ? 04/30/2025; patient has tolerated phenobarb taper well ?05/02/2025; patient scheduled to complete the phenobarb taper this evening 3. Elevated transaminases ? Patient pattern consistent with alcohol use we will monitor ? 04/28/2025 patient transaminases continue to rise repeat labs ordered in the 4. Dyslipidemia ?Patient is on statin therapy, continued at home dose 5. COPD ? Currently not in exacerbation aerosol treatments as needed 6. Hypertension ? Blood pressure controlled, home medications continued with dose adjustment as needed 7. Diabetes mellitus type 2 ? Held patient oral antihypertensive agent placed on Accu-Cheks AC and at bedtime with sliding scale coverage 8. GERD ? Patient was placed on PPI 9. Tobacco dependence ? Counseled on cessation, offered nicotine patch for tobacco cravings 10. Depression with anxiety ? Patient is on citalopram bupropion as well as buspirone did continue 11. Macrocytosis ? Secondary to chronic alcohol use repeat CBC with differential ordered in a.m. 12. Mild hyponatremia ? Secondary to hypovolemic hyponatremia started on IV fluid with BMP ordered fora.m. 13. Chronic alcohol dependence ? Counseled on cessation 14. Hallucinations ?? Alcohol withdrawal patient denies being jittery. Will continue with monitoring and start patienton phenobarb. Initiated CIWA protocol ? Secondary to alcohol withdrawal management as discussed above 15. Hypophosphatemia -Corrected per protocol, repeat phosphate ordered for 16 Hypomagnesemia -Corrected for protocol, repeat magnesium ordered for a.m. 17. Hypokalemia - Secondary to GI losses. Corrected per protocol repeat labs ordered in a.m. for follow-up ? 04/29/2025; further drop in patient potassium level and order was given for parenteral potassium ? 04/30/2025; potassium down to 2.7. Additional replacement given via both parenteral and oral route 18. Thrombocytopenia ? Secondary to chronic alcohol use monitoring with CBC with differential 19. Anemia ? Secondary to chronic disorder monitoring H&H and transfuse if patient becomes symptomatic or hemoglobin falls below 7 20. DVT prophylaxis ? Patient had been started on enoxaparin given the significant drop in platelet count enoxaparin 21. Severe malnutrition. Related to: inadequate oral intake As evidenced by: 10% unintentional weight loss x <1 month and PO meeting <50% ofestimated nutrition needs x 1 month. With treatment/resources used including: Adjust to regular, fat restriction diet. Continue 120ml glucerna TID with medpass. Will monitor weight trends. 22. Hypophosphatemia ? Secondary to aggressive repletion of patient low phosphate levels. Held patient phosphate 23. Physical deconditioning ? Requested for PT OT eval and social and political studies professor to assist with discharge planning Charges/Coding Visit Charges Inpatient E&M: 99527 Subs Hosp L2 05/02/25 1107 Cosigner Signature (if applicable): CC: ~ Signed [facility]06-03-2025 Progress note Author Canelo Myers [facility] Note Date/Time May 01, 2025 9:31a m [facility] Medical Records Department [address] [address] Progress Note - Hospitalist 05/01/25929 MR#: [id number] Acct: [id number] Name: JOSEPH RINCON Rep #:[id number] : 1975 50 From: Canelo Myers MD PCP: Dr. Abisai Haley MD Status:ADM IN Location: [place] [address] Reason for Visit Reason for Visit: Diagnoses Acute pancreatitis without necrosis or infection, unspecified (04/26/25) Subjective Subjective Patient seen still remains tremulous at rest. Complains of feeling weak. Requested for PT OT eval Objective Data Objective Data Vital Signs: Vital Signs Temp Pulse Resp BP Pulse Ox O2 Del Method O2 Flow Rate 98.2 F 89 16 167/97 H 92 Nasal Cannula 2 05/01/25 08:25 05/01/25 08:25 05/01/25 08:25 05/01/25 08:25 05/01/25 08:25 05/01/25 08:25 05/01/25 08:25 Oxygen Flow Rate (L/min) 2 Oxygen Delivery Method Nasal Cannula Weight: 59.5 kg Body Mass Index (BMI) 22.5 Intake & Output: Intake and Output for Last 24 Hours 04/29/25 04/30/25 05/01/25 23:59 23:59 23:59 Intake Total 7591.3333 / 8071.3333 6807.5 / 6807.5 1000 / 1000 Output Total 6 / 6 Balance 7591.3333 / 8067.3333 6801.5 / 6801.5 1000 / 1000 Medical Nutrition Assessment Dietitian: Malnutrition Criteria Met Start: 04/27/25 14:17 Freq: Status: Active Protocol: Document 04/27/25 14:17 SB (Rec: 04/27/25 14:17 SB [id number]) Nutrition Malnutrition Evidence of Yes Malnutrition Exists Malnutrition (severe Acute Illness/Injury ): Evidenced By Suboptimal Energy Intake (Severe),Weight Loss (Severe) Clinical Problem Acute Disease or Injury Related Malnutrition Etiology severe related to inadequate oral intake Signs/Symptoms as evidenced by 10% unintentional weight loss x <1 month and PO meeting <50% of estimated nutrition needs x 1 month. Status Active Problem Recommendation Dietitian Adjust to regular, fat restriction diet. Recommendations/ Continue 120ml glucerna TID with medpass. Changes Will monitor weight trends. Lab / Micro Data 04/30/25 04:51 04/30/25 04:51 Labs: Laboratory Results - last 24 hr 04/30/25 04:51: Magnesium 1.5 04/30/25 11:24: POC Glucose 230 H 04/30/25 16:39: POC Glucose 147 H 05/01/25 05:35: Phosphorus 5.1 H, Total Bilirubin 0.59, Direct Bilirubin 0.32 H,AST 73 H, ALT 39 H, Alkaline Phosphatase 166 H, Total Protein 5.7 L, Albumin 3.0L, Globulin 2.7 05/01/25 06:39: POC Glucose 168 H Physical Exam Narrative GENERAL: Tremulous HEENT: Atraumatic; normocephalic EYES; Anicteric, Normal Conjunctiva NECK; supple, normal thyroid, RESPIRATORY: Diminished to auscultation CARDIOVASCULAR: Regular S1 S2, GI: soft, normoactive bowel sounds, : No Renal angle tenderness; EXTREMITIES: No edema, no clubbing, MUSCULOSKELETAL: no muscle wasting NEURO: Awake; no lateralizing signs. SKIN: No Rash PSYCH; Flat affect Assessment & Plan Assessment/Plan (1) Pancreatitis: PLAN: Plan Patient is a 50-year-old lady with history of alcohol dependence, prior episodesof pancreatitis who presented with abdominal pain. Patient was found to have elevated lipase levels. 1. Acute on chronic pancreatitis ? Patient has been admitted to a monitored bed for symptom management including IV fluids, pain meds as well as antinausea medication. Plan is for patient to follow-up with GI following discharge ? 04/28/2025 patient lipase levels down and symptoms improving ? 04/30/2025; plan is to advance patient's diet 2. Alcohol withdrawal with delirium tremens ? Patient was started on CIWA protocol placed on phenobarb taper. ? 04/30/2025; patient has tolerated phenobarb taper well 3. Elevated transaminases ? Patient pattern consistent with alcohol use we will monitor ? 04/28/2025 patient transaminases continue to rise repeat labs ordered in the 4. Dyslipidemia ?Patient is on statin therapy, continued at home dose 5. COPD ? Currently not in exacerbation aerosol treatments as needed 6. Hypertension ? Blood pressure controlled, home medications continued with dose adjustment as needed 7. Diabetes mellitus type 2 ? Held patient oral antihypertensive agent placed on Accu-Cheks AC and at bedtime with sliding scale coverage 8. GERD ? Patient was placed on PPI 9. Tobacco dependence ? Counseled on cessation, offered nicotine patch for tobacco cravings 10. Depression with anxiety ? Patient is on citalopram bupropion as well as buspirone did continue 11. Macrocytosis ? Secondary to chronic alcohol use repeat CBC with differential ordered in a.m. 12. Mild hyponatremia ? Secondary to hypovolemic hyponatremia started on IV fluid with BMP ordered fora.m. 13. Chronic alcohol dependence ? Counseled on cessation 14. Hallucinations ?? Alcohol withdrawal patient denies being jittery. Will continue with monitoring and start patient on phenobarb. Initiated CIWA protocol ? Secondary to alcohol withdrawal management as discussed above 15. Hypophosphatemia -Corrected per protocol, repeat phosphate ordered for 16 Hypomagnesemia -Corrected for protocol, repeat magnesium ordered for a.m. 17. Hypokalemia - Secondary to GI losses. Corrected per protocol repeat labs ordered in a.m. for follow-up ? 04/29/2025; further drop in patient potassium level and order was given for parenteral potassium ? 04/30/2025; potassium down to 2.7. Additional replacement given via both parenteral and oral route 18. Thrombocytopenia ? Secondary to chronic alcohol use monitoring with CBC with differential 19. Anemia ? Secondary to chronic disorder monitoring H&H and transfuse if patient becomes symptomatic or hemoglobin falls below 7 20. DVT prophylaxis ? Patient had been started on enoxaparin given the significant drop in platelet count enoxaparin 21. Severe malnutrition. Related to: inadequate oral intake As evidenced by: 10% unintentional weight loss x <1 month and PO meeting <50% ofestimated nutrition needs x 1 month. With treatment/resources used including: Adjust to regular, fat restriction diet. Continue 120ml glucerna TID with medpass. Will monitor weight trends. 22. Hypophosphatemia ? Secondary to aggressive repletion of patient low phosphate levels. Held patient phosphate 23. Physical deconditioning ? Requested for PT OT eval and social and political studies professor to assist with discharge planning Charges/Coding Visit Charges Inpatient E&M: 75402 Subs Hosp L2 05/01/2531 <Electronically signed by Canelo Myers MD> Cosigner Signature (if applicable): CC: ~ Signed [facility] Work Phone: 1(232) 744-761106-03-2025 Progress note [facility] Medical Records Department [address] [place] [address] Progress Note - Hospitalist 05/01/25929 MR#: [id number] Acct: [id number] Name: JOSEPH RINCON Rep #:[id number] : 1975 50 From: Canelo Myers MD PCP: Dr. Abisai Haley MD Status:ADM IN Location: [place] [address] Reason for Visit Reason for Visit: Diagnoses Acute pancreatitis without necrosis or infection, unspecified (04/26/25) Subjective Subjective Patient seen still remains tremulous at rest. Complains of feeling weak. Requested for PT OT eval Objective Data Objective Data Vital Signs: Vital Signs Temp Pulse Resp BP Pulse Ox O2 Del Method O2 Flow Rate 98.2 F 89 16 167/97 H 92 Nasal Cannula 2 05/01/25 08:25 05/01/25 08:25 05/01/25 08:25 05/01/25 08:25 05/01/25 08:25 05/01/25 08:25 05/01/25 08:25 Oxygen Flow Rate (L/min) 2 Oxygen Delivery Method Nasal Cannula Weight: 59.5 kg Body Mass Index (BMI) 22.5 Intake & Output: Intake and Output for Last 24 Hours 04/29/25 04/30/25 05/01/25 23:59 23:59 23:59 Intake Total 9091.3333 / 8071.3333 6807.5 / 6807.5 1000 / 1000 Output Total 6 / 6 Balance 7591.3333 / 8067.3333 6801.5 / 6801.5 1000 / 1000 Medical Nutrition Assessment Dietitian: Malnutrition Criteria Met Start: 04/27/25 14:17 Freq: Status: Active Protocol: Document 04/27/25 14:17 SB (Rec: 04/27/25 14:17 SB [id number]) Nutrition Malnutrition Evidence of Yes Malnutrition Exists Malnutrition (severe Acute Illness/Injury ): Evidenced By Suboptimal Energy Intake (Severe),Weight Loss (Severe) Clinical Problem Acute Disease or Injury Related Malnutrition Etiology severe related to inadequate oral intake Signs/Symptoms as evidenced by 10% unintentional weight loss x <1 month and PO meeting <50% of estimated nutrition needs x 1 month. Status Active Problem Recommendation Dietitian Adjust to regular, fat restriction diet. Recommendations/ Continue 120ml glucerna TID with medpass. Changes Will monitor weight trends. Lab / Micro Data 04/30/25 04:51 04/30/25 04:51 Labs: Laboratory Results - last 24 hr 04/30/25 04:51: Magnesium 1.5 04/30/25 11:24: POC Glucose 230 H 04/30/25 16:39: POC Glucose 147 H 05/01/25 05:35: Phosphorus 5.1 H, Total Bilirubin 0.59, Direct Bilirubin 0.32 H,AST 73 H, ALT 39 H,Alkaline Phosphatase 166 H, Total Protein 5.7 L, Albumin 3.0L, Globulin 2.7 05/01/25 06:39: POC Glucose 168 H Physical Exam Narrative GENERAL: Tremulous HEENT: Atraumatic; normocephalic EYES; Anicteric, Normal Conjunctiva NECK; supple, normal thyroid, RESPIRATORY: Diminished to auscultation CARDIOVASCULAR: Regular S1 S2, GI: soft, normoactive bowel sounds, : No Renal angle tenderness; EXTREMITIES: No edema, no clubbing, MUSCULOSKELETAL: no muscle wasting NEURO: Awake; no lateralizing signs. SKIN: No Rash PSYCH; Flat affect Assessment & Plan Assessment/Plan (1) Pancreatitis: PLAN: Plan Patient is a 50-year-old lady with history of alcohol dependence, prior episodesof pancreatitis whopresented with abdominal pain. Patient was found to have elevated lipase levels. 1. Acute on chronic pancreatitis ? Patient has been admitted to a monitored bed for symptom management including IV fluids, pain meds as well as antinausea medication. Plan is for patient to follow-up with GI following discharge ? 04/28/2025 patient lipase levels down and symptoms improving ? 04/30/2025; plan is to advance patient's diet 2. Alcohol withdrawal with delirium tremens ? Patient was started on CIWA protocol placed on phenobarb taper. ? 04/30/2025; patient has tolerated phenobarb taper well 3. Elevated transaminases ? Patient pattern consistent with alcohol use we will monitor ? 04/28/2025 patient transaminases continue to rise repeat labs ordered in the 4. Dyslipidemia ?Patient is on statin therapy, continued at home dose 5. COPD ? Currently not in exacerbation aerosol treatments as needed 6. Hypertension ? Blood pressure controlled, home medications continued with dose adjustment as needed 7. Diabetes mellitus type 2 ? Held patient oral antihypertensive agent placed on Accu-Cheks AC and at bedtime with sliding scale coverage 8. GERD ? Patient was placed on PPI 9. Tobacco dependence ? Counseled on cessation, offered nicotine patch for tobacco cravings 10. Depression with anxiety ? Patient is on citalopram bupropion as well as buspirone did continue 11. Macrocytosis ? Secondary to chronic alcohol use repeat CBC with differential ordered in a.m. 12. Mild hyponatremia ? Secondary to hypovolemic hyponatremia started on IV fluid with BMP ordered fora.m. 13. Chronic alcohol dependence ? Counseled on cessation 14. Hallucinations ?? Alcohol withdrawal patient denies being jittery. Will continue with monitoring and start patienton phenobarb. Initiated CIWA protocol ? Secondary to alcohol withdrawal management as discussed above 15. Hypophosphatemia -Corrected per protocol, repeat phosphate ordered for 16 Hypomagnesemia -Corrected for protocol, repeat magnesium ordered for a.m. 17. Hypokalemia - Secondary to GI losses. Corrected per protocol repeat labs ordered in a.m. for follow-up ? 04/29/2025; further drop in patient potassium level and order was given for parenteral potassium ? 04/30/2025; potassium down to 2.7. Additional replacement given via both parenteral and oral route 18. Thrombocytopenia ? Secondary to chronic alcohol use monitoring with CBC with differential 19. Anemia ? Secondary to chronic disorder monitoring H&H and transfuse if patient becomes symptomatic or hemoglobin falls below 7 20. DVT prophylaxis ? Patient had been started on enoxaparin given the significant drop in platelet count enoxaparin 21. Severe malnutrition. Related to: inadequate oral intake As evidenced by: 10% unintentional weight loss x <1 month and PO meeting <50% ofestimated nutrition needs x 1 month. With treatment/resources used including: Adjust to regular, fat restriction diet. Continue 120ml glucerna TID with medpass. Will monitor weight trends. 22. Hypophosphatemia ? Secondary to aggressive repletion of patient low phosphate levels. Held patient phosphate 23. Physical deconditioning ? Requested for PT OT eval and social and political studies professor to assist with discharge planning Charges/Coding Visit Charges Inpatient E&M: 70469 Subs Hosp L2 05/01/25 0943 Cosigner Signature (if applicable): CC: ~ Signed [facility]06-02-2025 Progress note Author Canelo Myers [facility] Note Date/Time April 30, 2025 9:35a m [facility] Medical Records Department [address] [place] [address] Progress Note - Hospitalist 04/30/25 0814 MR#: [id number] Acct: [id number] Name: JOSEPH RINCON Rep #:[id number] : 1975 50 From: Canelo Myers MD PCP: Dr. Abisai Haley MD Status:ADM IN Location: [place] [address] Reason for Visit Reason for Visit: Diagnoses Acute pancreatitis without necrosis or infection, unspecified (04/26/25) Subjective Subjective Patient was started on phenobarb after she went into alcohol withdrawal. She continues to have significant electrolyte abnormalities including hypokalemia hypomagnesemia and hypophosphatemia. Aggressive correction initiated. Patient seen much more interactive compared to previous day. Plan is to advance patient's diet Objective Data Objective Data Vital Signs: Vital Signs Temp Pulse Resp BP Pulse Ox O2 Del Method O2 Flow Rate 98.7 F 88 16 176/79 H 97 Nasal Cannula 2 04/30/25 08:05 04/30/25 08:05 04/30/25 08:05 04/30/25 08:05 04/30/25 08:05 04/30/25 08:05 04/30/25 08:05 Oxygen Flow Rate (L/min) 2 Oxygen Delivery Method Nasal Cannula Weight: 59.5 kg Body Mass Index (BMI) 22.5 Intake & Output: Intake and Output for Last 24 Hours 04/28/25 04/29/25 04/30/25 23:59 23:59 23:59 Intake Total 3859.33 / 4219.33 7591.3333 / 8071.3333 2450 / 2450 Output Total 4 / 4 Balance 3859.33 / 4219.33 7591.3333 / 8067.3333 2446 / 2446 Medical Nutrition Assessment Dietitian: Malnutrition Criteria Met Start: 04/27/25 14:17 Freq: Status: Active Protocol: Document 04/27/25 14:17 SB (Rec: 04/27/25 14:17 SB [id number]) Nutrition Malnutrition Evidence of Yes Malnutrition Exists Malnutrition (severe Acute Illness/Injury ): Evidenced By Suboptimal Energy Intake (Severe),Weight Loss (Severe) Clinical Problem Acute Disease or Injury Related Malnutrition Etiology severe related to inadequate oral intake Signs/Symptoms as evidenced by 10% unintentional weight loss x <1 month and PO meeting <50% of estimated nutrition needs x 1 month. Status Active Problem Recommendation Dietitian Adjust to regular, fat restriction diet. Recommendations/ Continue 120ml glucerna TID with medpass. Changes Will monitor weight trends. Lab / Micro Data 04/30/25 04:51 04/30/25 04:51 Labs: Laboratory Results - last 24 hr 04/29/25 11:23: POC Glucose 218 H 04/29/25 16:46: POC Glucose 121 H 04/29/25 21:53: POC Glucose 187 H 04/30/25 04:51: WBC 6.0, RBC 2.81 L, Hgb 10.3 L, Hct 29.7 L, MCV 105.7 H, MCH 36.7 H, MCHC 34.7, RDW Std Deviation 49.7 H, RDW Coeff of Braxton 12.6, Plt Count 145 L, MPV 10.4, Immature Gran % (Auto) 0.500, Neut % (Auto) 59.8, Lymph % (Auto) 23.4, Yates % (Auto) 13.8 H, Eos % (Auto) 2.0, Baso % (Auto) 0.5, AbsoluteNeuts (auto) 3.6, Absolute Lymphs (auto) 1.39, Nucleated RBC % 0, Sodium 139, Potassium 2.7 L*, Chloride 98, Carbon Dioxide 28.1, Anion Gap 13, BUN < 2 L, Creatinine 0.41 L, Estim Creat Clear Calc 144.90, Est GFR (MDRD) Non-Af 121, BUN/Creatinine Ratio UNABLE TO CALCULATE L, Glucose 124 H, Calcium 8.5, Total Bilirubin 0.67, Direct Bilirubin 0.41 H, AST 39 H, ALT 32, Alkaline Phosphatase 98, Total Protein 5.9, Albumin 3.2 L, Globulin 2.6 04/30/25 06:35: POC Glucose 149 H Physical Exam Narrative GENERAL: cooperative but appears anxious HEENT: Atraumatic; normocephalic EYES; Anicteric, Normal Conjunctiva NECK; supple, normal thyroid, RESPIRATORY: Diminished to auscultation CARDIOVASCULAR: Regular S1 S2, GI: soft, normoactive bowel sounds, : No Renal angle tenderness; EXTREMITIES: No edema, no clubbing, MUSCULOSKELETAL: no muscle wasting NEURO: Awake; no lateralizing signs. SKIN: No Rash PSYCH; Flat affect Assessment & Plan Assessment/Plan (1) Pancreatitis: PLAN: Plan Patient is a 50-year-old lady with history of alcohol dependence, prior episodesof pancreatitis who presented with abdominal pain. Patient was found to have elevated lipase levels. 1. Acute on chronic pancreatitis ? Patient has been admitted to a monitored bed for symptom management including IV fluids, pain meds as well as antinausea medication. Plan is for patient to follow-up with GI following discharge ? 04/28/2025 patient lipase levels down and symptoms improving ? 04/30/2025; plan is to advance patient's diet 2. Alcohol withdrawal with delirium tremens ? Patient was started on CIWA protocol placed on phenobarb taper. ? 04/30/2025; patient has tolerated phenobarb taper well 3. Elevated transaminases ? Patient pattern consistent with alcohol use we will monitor ? 04/28/2025 patient transaminases continue to rise repeat labs ordered in the 4. Dyslipidemia ?Patient is on statin therapy, continued at home dose 5. COPD ? Currently not in exacerbation aerosol treatments as needed 6. Hypertension ? Blood pressure controlled, home medications continued with dose adjustment as needed 7. Diabetes mellitus type 2 ? Held patient oral antihypertensive agent placed on Accu-Cheks AC and at bedtime with sliding scale coverage 8. GERD ? Patient was placed on PPI 9. Tobacco dependence ? Counseled on cessation, offered nicotine patch for tobacco cravings 10. Depression with anxiety ? Patient is on citalopram bupropion as well as buspirone did continue 11. Macrocytosis ? Secondary to chronic alcohol use repeat CBC with differential ordered in a.m. 12. Mild hyponatremia ? Secondary to hypovolemic hyponatremia started on IV fluid with BMP ordered fora.m. 13. Chronic alcohol dependence ? Counseled on cessation 14. Hallucinations ?? Alcohol withdrawal patient denies being jittery. Will continue with monitoring and start patient on phenobarb. Initiated CIWA protocol ? Secondary to alcohol withdrawal management as discussed above 15. Hypophosphatemia -Corrected per protocol, repeat phosphate ordered for 16 Hypomagnesemia -Corrected for protocol, repeat magnesium ordered for a.m. 17. Hypokalemia - Secondary to GI losses. Corrected per protocol repeat labs ordered in a.m. for follow-up ? 04/29/2025; further drop in patient potassium level and order was given for parenteral potassium ? 04/30/2025; potassium down to 2.7. Additional replacement given via both parenteral and oral route 18. Thrombocytopenia ? Secondary to chronic alcohol use monitoring with CBC with differential 19. Anemia ? Secondary to chronic disorder monitoring H&H and transfuse if patient becomes symptomatic or hemoglobin falls below 7 20. DVT prophylaxis ? Patient had been started on enoxaparin given the significant drop in platelet count enoxaparin 21. Severe malnutrition. Related to: inadequate oral intake As evidenced by: 10% unintentional weight loss x <1 month and PO meeting <50% ofestimated nutrition needs x 1 month. With treatment/resources used including: Adjust to regular, fat restriction diet. Continue 120ml glucerna TID with medpass. Will monitor weight trends. Charges/Coding Visit Charges Inpatient E&M: 57126 Subs Hosp L2 04/30/25 5170 <Electronically signed by Canelo Myers MD> Troyigner Signature (if applicable): CC: ~ Signed [facility] Work Phone: 1(182) 102-815706-02-2025 Progress note [facility] Medical Records Department [address] [place] [id number] Progress Note - Hospitalist 04/30/2514 MR#: [id number] Acct: [id number] Name: JOSEPH RINCON Rep #:[id number] : 1975 50 From: Canelo Myers MD PCP: Dr. Abisai Haley MD Status:ADM IN Location: [place] [address] Reason for Visit Reason for Visit: Diagnoses Acute pancreatitis without necrosis or infection, unspecified (04/26/25) Subjective Subjective Patient was started on phenobarb after she went into alcohol withdrawal. She continues to have significant electrolyte abnormalities including hypokalemia hypomagnesemia and hypophosphatemia. Aggressive correction initiated. Patient seen much more interactive compared to previous day. Plan is to advance patient's diet Objective Data Objective Data Vital Signs: Vital Signs Temp Pulse Resp BP Pulse Ox O2 Del Method O2 Flow Rate 98.7 F 88 16 176/79 H 97 Nasal Cannula 2 04/30/25 08:05 04/30/25 08:05 04/30/25 08:05 04/30/25 08:05 04/30/25 08:05 04/30/25 08:05 04/30/25 08:05 Oxygen Flow Rate (L/min) 2 Oxygen Delivery Method Nasal Cannula Weight: 59.5 kg Body Mass Index (BMI) 22.5 Intake & Output: Intake and Output for Last 24 Hours 04/28/25 04/29/25 04/30/25 23:59 23:59 23:59 Intake Total 3859.33 / 4219.33 7591.3333 / 8071.3333 2450 / 2450 Output Total 4 / 4 Balance 3859.33 / 4219.33 7591.3333 / 8067.3333 2446 / 2446 Medical Nutrition Assessment Dietitian: Malnutrition Criteria Met Start: 04/27/25 14:17 Freq: Status: Active Protocol: Document 04/27/25 14:17 SB (Rec: 04/27/25 14:17 SB [id number]) Nutrition Malnutrition Evidence of Yes Malnutrition Exists Malnutrition (severe Acute Illness/Injury ): Evidenced By Suboptimal Energy Intake (Severe),Weight Loss (Severe) Clinical Problem Acute Disease or Injury Related Malnutrition Etiology severe related to inadequate oral intake Signs/Symptoms as evidenced by 10% unintentional weight loss x <1 month and PO meeting <50% of estimated nutrition needs x 1 month. Status Active Problem Recommendation Dietitian Adjust to regular, fat restriction diet. Recommendations/ Continue 120ml glucerna TID with medpass. Changes Will monitor weight trends. Lab / Micro Data 04/30/25 04:51 04/30/25 04:51 Labs: Laboratory Results - last 24 hr 04/29/25 11:23: POC Glucose 218 H 04/29/25 16:46: POC Glucose 121 H 04/29/25 21:53: POC Glucose 187 H 04/30/25 04:51: WBC 6.0, RBC 2.81 L, Hgb 10.3 L, Hct 29.7 L, MCV 105.7 H, MCH 36.7 H, MCHC 34.7, RDW Std Deviation 49.7 H, RDW Coeff of Braxton 12.6, Plt Count 145 L, MPV 10.4, Immature Gran % (Auto) 0.500, Neut % (Auto) 59.8, Lymph % (Auto) 23.4, Yates % (Auto) 13.8 H, Eos % (Auto) 2.0, Baso % (Auto) 0.5, AbsoluteNeuts (auto) 3.6, Absolute Lymphs (auto) 1.39, Nucleated RBC % 0, Sodium 139, Potassium 2.7 L*, Chloride 98, Carbon Dioxide 28.1, Anion Gap 13, BUN < 2 L, Creatinine 0.41 L, Estim CreatClear Calc 144.90, Est GFR (MDRD) Non-Af 121, BUN/Creatinine Ratio UNABLE TO CALCULATE L, Glucose 124 H, Calcium 8.5, Total Bilirubin 0.67, Direct Bilirubin 0.41 H, AST 39 H, ALT 32, Alkaline Phosphatase 98, Total Protein 5.9, Albumin 3.2 L, Globulin 2.6 04/30/25 06:35: POC Glucose 149 H Physical Exam Narrative GENERAL: cooperative but appears anxious HEENT: Atraumatic; normocephalic EYES; Anicteric, Normal Conjunctiva NECK; supple, normal thyroid, RESPIRATORY: Diminished to auscultation CARDIOVASCULAR: Regular S1 S2, GI: soft, normoactive bowel sounds, : No Renal angle tenderness; EXTREMITIES: No edema, no clubbing, MUSCULOSKELETAL: no muscle wasting NEURO: Awake; no lateralizing signs. SKIN: No Rash PSYCH; Flat affect Assessment & Plan Assessment/Plan (1) Pancreatitis: PLAN: Plan Patient is a 50-year-old lady with history of alcohol dependence, prior episodesof pancreatitis whopresented with abdominal pain. Patient was found to have elevated lipase levels. 1. Acute on chronic pancreatitis ? Patient has been admitted to a monitored bed for symptom management including IV fluids, pain meds as well as antinausea medication. Plan is for patient to follow-up with GI following discharge ? 04/28/2025 patient lipase levels down and symptoms improving ? 04/30/2025; plan is to advance patient's diet 2. Alcohol withdrawal with delirium tremens ? Patient was started on CIWA protocol placed on phenobarb taper. ? 04/30/2025; patient has tolerated phenobarb taper well 3. Elevated transaminases ? Patient pattern consistent with alcohol use we will monitor ? 04/28/2025 patient transaminases continue to rise repeat labs ordered in the 4. Dyslipidemia ?Patient is on statin therapy, continued at home dose 5. COPD ? Currently not in exacerbation aerosol treatments as needed 6. Hypertension ? Blood pressure controlled, home medications continued with dose adjustment as needed 7. Diabetes mellitus type 2 ? Held patient oral antihypertensive agent placed on Accu-Cheks AC and at bedtime with sliding scale coverage 8. GERD ? Patient was placed on PPI 9. Tobacco dependence ? Counseled on cessation, offered nicotine patch for tobacco cravings 10. Depression with anxiety ? Patient is on citalopram bupropion as well as buspirone did continue 11. Macrocytosis ? Secondary to chronic alcohol use repeat CBC with differential ordered in a.m. 12. Mild hyponatremia ? Secondary to hypovolemic hyponatremia started on IV fluid with BMP ordered fora.m. 13. Chronic alcohol dependence ? Counseled on cessation 14. Hallucinations ?? Alcohol withdrawal patient denies being jittery. Will continue with monitoring and start patienton phenobarb. Initiated CIWA protocol ? Secondary to alcohol withdrawal management as discussed above 15. Hypophosphatemia -Corrected per protocol, repeat phosphate ordered for 16 Hypomagnesemia -Corrected for protocol, repeat magnesium ordered for a.m. 17. Hypokalemia - Secondary to GI losses. Corrected per protocol repeat labs ordered in a.m. for follow-up ? 04/29/2025; further drop in patient potassium level and order was given for parenteral potassium ? 04/30/2025; potassium down to 2.7. Additional replacement given via both parenteral and oral route 18. Thrombocytopenia ? Secondary to chronic alcohol use monitoring with CBC with differential 19. Anemia ? Secondary to chronic disorder monitoring H&H and transfuse if patient becomes symptomatic or hemoglobin falls below 7 20. DVT prophylaxis ? Patient had been started on enoxaparin given the significant drop in platelet count enoxaparin 21. Severe malnutrition. Related to: inadequate oral intake As evidenced by: 10% unintentional weight loss x <1 month and PO meeting <50% ofestimated nutrition needs x 1 month. With treatment/resources used including: Adjust to regular, fat restriction diet. Continue 120ml glucerna TID with medpass. Will monitor weight trends. Charges/Coding Visit Charges Inpatient E&M: 61491 Subs Hosp L2 04/30/25 0935 Cosigner Signature (if applicable): CC: ~ Signed [facility]06-01-2025 Progress note Author Canelo Myers [facility] Note Date/Time April 29, 2025 8:44a m [facility] Medical Records Department [address] [place] [address] Progress Note - Hospitalist 04/29/25 0733 MR#: [id number] Acct: [id number] Name: JOSEPH RINCON Rep #:[id number] : 1975 50 From: Canelo Myers MD PCP: Dr. Abisai Haley MD Status:ADM IN Location: [place] [address] Reason for Visit Reason for Visit: Diagnoses Acute pancreatitis without necrosis or infection, unspecified (04/26/25) Subjective Subjective Patient went into full-blown delirium tremens the day prior. Had to be started on the CIWA protocol with Ativan taper. Seen this a.m. patient remains tremulous. Has significant electrolyte abnormalities including hypokalemia hypomagnesemia and hypophosphatemia. Hemoglobin is down to 9.9 Objective Data Objective Data Vital Signs: Vital Signs Temp Pulse Resp BP Pulse Ox O2 Del Method O2 Flow Rate 97.3 F L 82 20 H 169/87 H 88 Room Air 2 04/29/25 06:09 04/29/25 06:53 04/29/25 06:53 04/29/25 06:09 04/29/25 06:53 04/29/25 06:53 04/28/25 23:05 Oxygen Flow Rate (L/min) 2 Oxygen Delivery Method Room Air Weight: 59.5 kg Body Mass Index (BMI) 22.5 Intake & Output: Intake and Output for Last 24 Hours 04/27/25 04/28/25 04/29/25 23:59 23:59 23:59 Intake Total 3277.5 / 3277.5 3859.33 / 4219.33 1430 / 1430 Balance 3277.5 / 3277.5 3859.33 / 4219.33 1430 / 1430 Medical Nutrition Assessment Dietitian: Malnutrition Criteria Met Start: 04/27/25 14:17 Freq: Status: Active Protocol: Document 04/27/25 14:17 SB (Rec: 04/27/25 14:17 SB [id number]) Nutrition Malnutrition Evidence of Yes Malnutrition Exists Malnutrition (severe Acute Illness/Injury ): Evidenced By Suboptimal Energy Intake (Severe),Weight Loss (Severe) Clinical Problem Acute Disease or Injury Related Malnutrition Etiology severe related to inadequate oral intake Signs/Symptoms as evidenced by 10% unintentional weight loss x <1 month and PO meeting <50% of estimated nutrition needs x 1 month. Status Active Problem Recommendation Dietitian Adjust to regular, fat restriction diet. Recommendations/ Continue 120ml glucerna TID with medpass. Changes Will monitor weight trends. Lab / Micro Data 04/29/25 04:38 04/29/25 04:38 Labs: Laboratory Results - last 24 hr 04/28/25 05:34: Sodium 137, Potassium 3.2 L, Chloride 100, Carbon Dioxide 24.9, Anion Gap 12, BUN 3 L, Creatinine 0.50 L, Estim Creat Clear Calc 118.82, Est GFR(MDRD) Non-Af 115, BUN/Creatinine Ratio 6.9 L, Glucose 103 H, Calcium 8.3, Phosphorus 1.5 L, Magnesium 1.5, Total Bilirubin 1.26, Direct Bilirubin 0.79 H, AST 265 H, ALT 72 H, Alkaline Phosphatase 158 H, Total Protein 6.3, Albumin 3.7, Globulin 2.6, Lipase 533 H 04/28/25 11:26: POC Glucose 181 H 04/28/25 22:19: POC Glucose 140 H 04/29/25 04:38: WBC 7.2, RBC 2.71 L, Hgb 9.9 L, Hct 28.7 L, MCV 105.9 H, MCH 36.5 H, MCHC 34.5, RDW Std Deviation 47.6 H, RDW Coeff of Braxton 12.2, Plt Count 110 L, MPV 10.5, Immature Gran % (Auto) 0.600, Neut % (Auto) 72.9 H, Lymph % (Auto) 14.1 L, Yates % (Auto) 10.9 H, Eos % (Auto) 1.1, Baso % (Auto) 0.4, Absolute Neuts (auto) 5.3, Absolute Lymphs (auto) 1.02, Nucleated RBC % 0, Sodium 140, Potassium 2.8 L, Chloride 103, Carbon Dioxide 26.0, Anion Gap 11, BUN < 2 L, Creatinine 0.40 L, Estim Creat Clear Calc 148.53, Est GFR (MDRD) Non-Af 122, BUN/Creatinine Ratio UNABLE TO CALCULATE L, Glucose 126 H, Calcium 8.2, Phosphorus 2.0 L, Magnesium 1.5, Total Bilirubin 0.71, Direct Bilirubin 0.43 H, AST 56 H, ALT 37 H, Alkaline Phosphatase 108 H, Total Protein 5.6 L, Albumin 3.2L, Globulin 2.4 04/29/25 06:24: POC Glucose 132 H Physical Exam Narrative GENERAL: cooperative but appears anxious HEENT: Atraumatic; normocephalic EYES; Anicteric, Normal Conjunctiva NECK; supple, normal thyroid, RESPIRATORY: Diminished to auscultation CARDIOVASCULAR: Regular S1 S2, GI: soft, normoactive bowel sounds, : No Renal angle tenderness; EXTREMITIES: No edema, no clubbing, MUSCULOSKELETAL: no muscle wasting NEURO: Awake; no lateralizing signs. SKIN: No Rash PSYCH; Flat affect Assessment & Plan Assessment/Plan (1) Pancreatitis: PLAN: Plan Patient is a 50-year-old lady with history of alcohol dependence, prior episodesof pancreatitis who presented with abdominal pain. Patient was found to have elevated lipase levels. 1. Acute on chronic pancreatitis ? Patient has been admitted to a monitored bed for symptom management including IV fluids, pain meds as well as antinausea medication. Plan is for patient to follow-up with GI following discharge ? 04/28/2025 patient lipase levels down and symptoms improving 2. Alcohol withdrawal with delirium tremens ? Patient was started on CIWA protocol placed on phenobarb taper. 3. Elevated transaminases ? Patient pattern consistent with alcohol use we will monitor ? 04/28/2025 patient transaminases continue to rise repeat labs ordered in the 4. Dyslipidemia ?Patient is on statin therapy, continued at home dose 5. COPD ? Currently not in exacerbation aerosol treatments as needed 6. Hypertension ? Blood pressure controlled, home medications continued with dose adjustment as needed 7. Diabetes mellitus type 2 ? Held patient oral antihypertensive agent placed on Accu-Cheks AC and at bedtime with sliding scale coverage 8. GERD ? Patient was placed on PPI 9. Tobacco dependence ? Counseled on cessation, offered nicotine patch for tobacco cravings 10. Depression with anxiety ? Patient is on citalopram bupropion as well as buspirone did continue 11. Macrocytosis ? Secondary to chronic alcohol use repeat CBC with differential ordered in a.m. 12. Mild hyponatremia ? Secondary to hypovolemic hyponatremia started on IV fluid with BMP ordered fora.m. 13. Chronic alcohol dependence ? Counseled on cessation 14. Hallucinations ?? Alcohol withdrawal patient denies being jittery. Will continue with monitoring and start patient on phenobarb. Initiated CIWA protocol ? Secondary to alcohol withdrawal management as discussed above 15. Hypophosphatemia -Corrected per protocol, repeat phosphate ordered for 16 Hypomagnesemia -Corrected for protocol, repeat magnesium ordered for a.m. 17. Hypokalemia - Secondary to GI losses. Corrected per protocol repeat labs ordered in a.m. for follow-up ? 04/29/2025; further drop in patient potassium level and order was given for parenteral potassium 18. Thrombocytopenia ? Secondary to chronic alcohol use monitoring with CBC with differential 19. Anemia ? Secondary to chronic disorder monitoring H&H and transfuse if patient becomes symptomatic or hemoglobin falls below 7 20. DVT prophylaxis ? Patient had been started on enoxaparin given the significant drop in platelet count enoxaparin Time spent in the patient's overall evaluation,decision-making process, review of diagnostic data, adjustment of management, discussion with other providers, nursing nursing and ancillary staff involved in patient's care documentation, 50 Minutes Charges/Coding Visit Charges Inpatient E&M: 70536 Subs Hosp L3 04/29/25 0844 <Electronically signed by Canelo Myers MD> Cosigner Signature (if applicable): CC: ~ Signed [facility] Work Phone: 1(767) 819-114006-01-2025 Progress note [facility] Medical Records Department [address] [place] [address] Progress Note - Hospitalist 04/29/25 0733 MR#: [id number] Acct: [id number] Name: JOSEPH RINCON Rep #:[id number] : 1975 50 From: Canelo Myers MD PCP: Dr. Abisai Haley MD Status:ADM IN Location: [place] [address] Reason for Visit Reason for Visit: Diagnoses Acute pancreatitis without necrosis or infection, unspecified (04/26/25) Subjective Subjective Patient went into full-blown delirium tremens the day prior. Had to be started on the CIWA protocolwith Ativan taper. Seen this a.m. patient remains tremulous. Has significant electrolyte abnormalities including hypokalemia hypomagnesemia and hypophosphatemia. Hemoglobin is down to 9.9 Objective Data Objective Data Vital Signs: Vital Signs Temp Pulse Resp BP Pulse Ox O2 Del Method O2 Flow Rate 97.3 F L 82 20 H 169/87 H 88 Room Air 2 04/29/25 06:09 04/29/25 06:53 04/29/25 06:53 04/29/25 06:09 04/29/25 06:53 04/29/25 06:53 04/28/25 23:05 Oxygen Flow Rate (L/min) 2 Oxygen Delivery Method Room Air Weight: 59.5 kg Body Mass Index (BMI) 22.5 Intake & Output: Intake and Output for Last 24 Hours 04/27/25 04/28/25 04/29/25 23:59 23:59 23:59 Intake Total 3277.5 / 3277.5 3859.33 / 4219.33 1430 / 1430 Balance 3277.5 / 3277.5 3859.33 / 4219.33 1430 / 1430 Medical Nutrition Assessment Dietitian: Malnutrition Criteria Met Start: 04/27/25 14:17 Freq: Status: Active Protocol: Document 04/27/25 14:17 SB (Rec: 04/27/25 14:17 SB [id number]) Nutrition Malnutrition Evidence of Yes Malnutrition Exists Malnutrition (severe Acute Illness/Injury ): Evidenced By Suboptimal Energy Intake (Severe),Weight Loss (Severe) Clinical Problem Acute Disease or Injury Related Malnutrition Etiology severe related to inadequate oral intake Signs/Symptoms as evidenced by 10% unintentional weight loss x <1 month and PO meeting <50% of estimated nutrition needs x 1 month. Status Active Problem Recommendation Dietitian Adjust to regular, fat restriction diet. Recommendations/ Continue 120ml glucerna TID with medpass. Changes Will monitor weight trends. Lab / Micro Data 04/29/25 04:38 04/29/25 04:38 Labs: Laboratory Results - last 24 hr 04/28/25 05:34: Sodium 137, Potassium 3.2 L, Chloride 100, Carbon Dioxide 24.9, Anion Gap 12, BUN 3L, Creatinine 0.50 L, Estim Creat Clear Calc 118.82, Est GFR(MDRD) Non-Af 115, BUN/Creatinine Ratio6.9 L, Glucose 103 H, Calcium 8.3, Phosphorus 1.5 L, Magnesium 1.5, Total Bilirubin 1.26, Direct Bilirubin 0.79 H, AST 265 H, ALT 72 H, Alkaline Phosphatase 158 H, Total Protein 6.3, Albumin 3.7, Globulin 2.6, Lipase 533 H 04/28/25 11:26: POC Glucose 181 H 04/28/25 22:19: POC Glucose 140 H 04/29/25 04:38: WBC 7.2, RBC 2.71 L, Hgb 9.9 L, Hct 28.7 L, MCV 105.9 H, MCH 36.5 H, MCHC 34.5, RDWStd Deviation 47.6 H, RDW Coeff of Braxton 12.2, Plt Count 110 L, MPV 10.5, Immature Gran % (Auto) 0.600, Neut % (Auto) 72.9 H, Lymph % (Auto) 14.1 L, Yates % (Auto) 10.9 H, Eos % (Auto) 1.1, Baso % (Auto) 0.4, Absolute Neuts (auto) 5.3, Absolute Lymphs (auto) 1.02, Nucleated RBC % 0, Sodium 140, Potassium 2.8 L, Chloride 103, Carbon Dioxide 26.0, Anion Gap 11, BUN < 2 L, Creatinine 0.40 L, Estim Creat Clear Calc 148.53, Est GFR (MDRD) Non-Af 122, BUN/Creatinine Ratio UNABLE TO CALCULATE L, Glucose 126 H, Calcium 8.2, Phosphorus 2.0 L, Magnesium 1.5, Total Bilirubin 0.71, Direct Bilirubin 0.43 H, AST 56 H, ALT 37 H, Alkaline Phosphatase 108 H, Total Protein 5.6 L, Albumin 3.2L, Globulin 2.4 04/29/25 06:24: POC Glucose 132 H Physical Exam Narrative GENERAL: cooperative but appears anxious HEENT: Atraumatic; normocephalic EYES; Anicteric, Normal Conjunctiva NECK; supple, normal thyroid, RESPIRATORY: Diminished to auscultation CARDIOVASCULAR: Regular S1 S2, GI: soft, normoactive bowel sounds, : No Renal angle tenderness; EXTREMITIES: No edema, no clubbing, MUSCULOSKELETAL: no muscle wasting NEURO: Awake; no lateralizing signs. SKIN: No Rash PSYCH; Flat affect Assessment & Plan Assessment/Plan (1) Pancreatitis: PLAN: Plan Patient is a 50-year-old lady with history of alcohol dependence, prior episodesof pancreatitis whopresented with abdominal pain. Patient was found to have elevated lipase levels. 1. Acute on chronic pancreatitis ? Patient has been admitted to a monitored bed for symptom management including IV fluids, pain meds as well as antinausea medication. Plan is for patient to follow-up with GI following discharge ? 04/28/2025 patient lipase levels down and symptoms improving 2. Alcohol withdrawal with delirium tremens ? Patient was started on CIWA protocol placed on phenobarb taper. 3. Elevated transaminases ? Patient pattern consistent with alcohol use we will monitor ? 04/28/2025 patient transaminases continue to rise repeat labs ordered in the 4. Dyslipidemia ?Patient is on statin therapy, continued at home dose 5. COPD ? Currently not in exacerbation aerosol treatments as needed 6. Hypertension ? Blood pressure controlled, home medications continued with dose adjustment as needed 7. Diabetes mellitus type 2 ? Held patient oral antihypertensive agent placed on Accu-Cheks AC and at bedtime with sliding scale coverage 8. GERD ? Patient was placed on PPI 9. Tobacco dependence ? Counseled on cessation, offered nicotine patch for tobacco cravings 10. Depression with anxiety ? Patient is on citalopram bupropion as well as buspirone did continue 11. Macrocytosis ? Secondary to chronic alcohol use repeat CBC with differential ordered in a.m. 12. Mild hyponatremia ? Secondary to hypovolemic hyponatremia started on IV fluid with BMP ordered fora.m. 13. Chronic alcohol dependence ? Counseled on cessation 14. Hallucinations ?? Alcohol withdrawal patient denies being jittery. Will continue with monitoring and start patienton phenobarb. Initiated CIWA protocol ? Secondary to alcohol withdrawal management as discussed above 15. Hypophosphatemia -Corrected per protocol, repeat phosphate ordered for 16 Hypomagnesemia -Corrected for protocol, repeat magnesium ordered for a.m. 17. Hypokalemia - Secondary to GI losses. Corrected per protocol repeat labs ordered in a.m. for follow-up ? 04/29/2025; further drop in patient potassium level and order was given for parenteral potassium 18. Thrombocytopenia ? Secondary to chronic alcohol use monitoring with CBC with differential 19. Anemia ? Secondary to chronic disorder monitoring H&H and transfuse if patient becomes symptomatic or hemoglobin falls below 7 20. DVT prophylaxis ? Patient had been started on enoxaparin given the significant drop in platelet count enoxaparin Time spent in the patient's overall evaluation,decision-making process, review of diagnostic data, adjustment of management, discussion with other providers, nursing nursing and ancillary staff involved in patient's care documentation, 50 Minutes Charges/Coding Visit Charges Inpatient E&M: 06130 Subs Hosp L3 04/29/25 0844 Cosigner Signature (if applicable): CC: ~ Signed [facility]05-31-2025 Progress note Author Canelo Myers [facility] Note Date/Time April 28, 2025 9:47a m [facility] Medical Records Department [address] [place] [address] Progress Note - Hospitalist 04/28/25 0942 MR#: [id number] Acct: [id number] Name: JOSEPH RINCON Rep #:[id number] : 1975 50 From: Canelo Myers MD PCP: Dr. Abisai Haley MD Status:ADM IN Location: [place] [address] Reason for Visit Reason for Visit: Diagnoses Acute pancreatitis without necrosis or infection, unspecified (04/26/25) Subjective Subjective Patient seen reports having hallucinations during early hours of the morning. Patient transaminases trending down lipase however down. Objective Data Objective Data Vital Signs: Vital Signs Temp Pulse Resp BP Pulse Ox O2 Del Method 98.2 F 80 20 H 116/76 92 Room Air 04/28/25 03:52 04/28/25 08:58 04/28/25 07:20 04/28/25 03:52 04/28/25 03:52 04/28/25 03:52 Oxygen Delivery Method Room Air Weight: 59.5 kg Body Mass Index (BMI) 22.5 Intake & Output: Intake and Output for Last 24 Hours 04/26/25 04/27/25 04/28/25 23:59 23:59 23:59 Intake Total 1743.33 / 1743.33 3277.5 / 3277.5 998.33 / 998.33 Balance 1743.33 / 1743.33 3277.5 / 3277.5 998.33 / 998.33 Medical Nutrition Assessment Dietitian: Malnutrition Criteria Met Start: 04/27/25 14:17 Freq: Status: Active Protocol: Document 04/27/25 14:17 SB (Rec: 04/27/25 14:17 SB [id number]) Nutrition Malnutrition Evidence of Yes Malnutrition Exists Malnutrition (severe Acute Illness/Injury ): Evidenced By Suboptimal Energy Intake (Severe),Weight Loss (Severe) Clinical Problem Acute Disease or Injury Related Malnutrition Etiology severe related to inadequate oral intake Signs/Symptoms as evidenced by 10% unintentional weight loss x <1 month and PO meeting <50% of estimated nutrition needs x 1 month. Status Active Problem Recommendation Dietitian Adjust to regular, fat restriction diet. Recommendations/ Continue 120ml glucerna TID with medpass. Changes Will monitor weight trends. Lab / Micro Data 04/28/25 05:34 04/28/25 05:34 Labs: Laboratory Results - last 24 hr 04/27/25 01:39: Hemoglobin A1c 5.6 04/27/25 11:26: POC Glucose 194 H 04/27/25 17:00: POC Glucose 149 H 04/27/25 22:12: POC Glucose 153 H 04/28/25 05:34: WBC 7.6, RBC 3.19 L, Hgb 11.6 L, Hct 34.3 L, MCV 107.5 H, MCH 36.4 H, MCHC 33.8, RDW Std Deviation 48.2 H, RDW Coeff of Braxton 12.2, Plt Count 119 L, MPV 10.3, Immature Gran % (Auto) 0.400, Neut % (Auto) 78.0 H, Lymph % (Auto) 12.5 L, Yates % (Auto) 8.0, Eos % (Auto) 0.8, Baso % (Auto) 0.3, Absolute Neuts (auto) 5.9, Absolute Lymphs (auto) 0.95, Nucleated RBC % 0, Sodium 137, Potassium 3.2 L, Chloride 100, Carbon Dioxide 24.9, Anion Gap 12, BUN 3 L, Creatinine 0.50 L, Estim Creat Clear Calc 118.82, Est GFR (MDRD) Non-Af 115, BUN/Creatinine Ratio 6.9 L, Glucose 103 H, Calcium 8.3, Phosphorus 1.5 L, Magnesium 1.5, Total Bilirubin 1.26, Direct Bilirubin 0.79 H, AST 265 H, ALT 72 H, Alkaline Phosphatase 158 H, Total Protein 6.3, Albumin 3.7, Globulin 2.6, Lipase 533 H 04/28/25 06:12: POC Glucose 104 Physical Exam Narrative GENERAL: cooperative but appears anxious HEENT: Atraumatic; normocephalic EYES; Anicteric, Normal Conjunctiva NECK; supple, normal thyroid, RESPIRATORY: Diminished to auscultation CARDIOVASCULAR: Regular S1 S2, GI: soft, normoactive bowel sounds, : No Renal angle tenderness; EXTREMITIES: No edema, no clubbing, MUSCULOSKELETAL: no muscle wasting NEURO: Awake; no lateralizing signs. SKIN: No Rash PSYCH; Flat affect Assessment & Plan Assessment/Plan (1) Pancreatitis: PLAN: Plan Patient is a 50-year-old lady with history of alcohol dependence, prior episodesof pancreatitis who presented with abdominal pain. Patient was found to have elevated lipase levels. 1. Acute on chronic pancreatitis ? Patient has been admitted to a monitored bed for symptom management including IV fluids, pain meds as well as antinausea medication. Plan is for patient to follow-up with GI following discharge ? 04/28/2025 patient lipase levels down and symptoms improving 2. Hypokalemia - Secondary to GI losses. Corrected per protocol repeat labs ordered in a.m. for follow-up 3. Elevated transaminases ? Patient pattern consistent with alcohol use we will monitor ? 04/28/2025 patient transaminases continue to rise repeat labs ordered in the 4. Dyslipidemia ?Patient is on statin therapy, continued at home dose 5. COPD ? Currently not in exacerbation aerosol treatments as needed 6. Hypertension ? Blood pressure controlled, home medications continued with dose adjustment as needed 7. Diabetes mellitus type 2 ? Held patient oral antihypertensive agent placed on Accu-Cheks AC and at bedtime with sliding scale coverage 8. GERD ? Patient was placed on PPI 9. Tobacco dependence ? Counseled on cessation, offered nicotine patch for tobacco cravings 10. Depression with anxiety ? Patient is on citalopram bupropion as well as buspirone did continue 11. Macrocytosis ? Secondary to chronic alcohol use repeat CBC with differential ordered in a.m. 12. Mild hyponatremia ? Secondary to hypovolemic hyponatremia started on IV fluid with BMP ordered fora.m. 13. Chronic alcohol dependence ? Counseled on cessation 14. DVT prophylaxis ? On enoxaparin 15. DVT prophylaxis ? On enoxaparin 16. Hallucinations ?? Alcohol withdrawal patient denies being jittery. Will continue with monitoring and start patient on phenobarb. Initiated CIWA protocol Time spent in the patient's overall evaluation,decision-making process, review of diagnostic data, adjustment of management, discussion with other providers, nursing nursing and ancillary staff involved in patient's care documentation, 52 Minutes Charges/Coding Visit Charges Inpatient E&M: 43926 Subs Hosp L3 04/28/25 0947 <Electronically signed by Canelo Myers MD> Cosigner Signature (if applicable): CC: ~ Signed [facility] Work Phone: [phone]) 981-458205-31-2025 Progress note [facility] Medical Records Department [address] [place] [address] Progress Note - Hospitalist 04/28/25 0942 MR#: [id number] Acct: [id number] Name: JOSEPH RINCON Rep #:[id number] : 1975 50 From: Canelo Myers MD PCP: Dr. Abisai Haley MD Status:ADM IN Location: [place] [address] Reason for Visit Reason for Visit: Diagnoses Acute pancreatitis without necrosis or infection, unspecified (04/26/25) Subjective Subjective Patient seen reports having hallucinations during early hours of the morning. Patient transaminasestrending down lipase however down. Objective Data Objective Data Vital Signs: Vital Signs Temp Pulse Resp BP Pulse Ox O2 Del Method 98.2 F 80 20 H 116/76 92 Room Air 04/28/25 03:52 04/28/25 08:58 04/28/25 07:20 04/28/25 03:52 04/28/25 03:52 04/28/25 03:52 Oxygen Delivery Method Room Air Weight: 59.5 kg Body Mass Index (BMI) 22.5 Intake & Output: Intake and Output for Last 24 Hours 04/26/25 04/27/25 04/28/25 23:59 23:59 23:59 Intake Total 1743.33 / 1743.33 3277.5 / 3277.5 998.33 / 998.33 Balance 1743.33 / 1743.33 3277.5 / 3277.5 998.33 / 998.33 Medical Nutrition Assessment Dietitian: Malnutrition Criteria Met Start: 04/27/25 14:17 Freq: Status: Active Protocol: Document 04/27/25 14:17 SB (Rec: 04/27/25 14:17 SB [id number]) Nutrition Malnutrition Evidence of Yes Malnutrition Exists Malnutrition (severe Acute Illness/Injury ): Evidenced By Suboptimal Energy Intake (Severe),Weight Loss (Severe) Clinical Problem Acute Disease or Injury Related Malnutrition Etiology severe related to inadequate oral intake Signs/Symptoms as evidenced by 10% unintentional weight loss x <1 month and PO meeting <50% of estimated nutrition needs x 1 month. Status Active Problem Recommendation Dietitian Adjust to regular, fat restriction diet. Recommendations/ Continue 120ml glucerna TID with medpass. Changes Will monitor weight trends. Lab / Micro Data 04/28/25 05:34 04/28/25 05:34 Labs: Laboratory Results - last 24 hr 04/27/25 01:39: Hemoglobin A1c 5.6 04/27/25 11:26: POC Glucose 194 H 04/27/25 17:00: POC Glucose 149 H 04/27/25 22:12: POC Glucose 153 H 04/28/25 05:34: WBC 7.6, RBC 3.19 L, Hgb 11.6 L, Hct 34.3 L, MCV 107.5 H, MCH 36.4 H, MCHC 33.8, RDW Std Deviation 48.2 H, RDW Coeff of Braxton 12.2, Plt Count 119 L, MPV 10.3, Immature Gran % (Auto) 0.400, Neut % (Auto) 78.0 H, Lymph % (Auto) 12.5 L, Yates % (Auto) 8.0, Eos % (Auto) 0.8, Baso % (Auto) 0.3, Absolute Neuts (auto) 5.9, Absolute Lymphs (auto) 0.95, Nucleated RBC % 0, Sodium 137, Potassium 3.2 L, Chloride 100, Carbon Dioxide 24.9, Anion Gap 12, BUN 3 L, Creatinine 0.50 L, Estim Creat Clear Calc 118.82, Est GFR (MDRD) Non-Af 115, BUN/Creatinine Ratio 6.9 L, Glucose 103 H, Calcium 8.3, Phosphorus 1.5 L, Magnesium 1.5, Total Bilirubin 1.26, Direct Bilirubin 0.79 H, AST 265 H, ALT 72 H,Alkaline Phosphatase 158 H, Total Protein 6.3, Albumin 3.7, Globulin 2.6, Lipase 533 H 04/28/25 06:12: POC Glucose 104 Physical Exam Narrative GENERAL: cooperative but appears anxious HEENT: Atraumatic; normocephalic EYES; Anicteric, Normal Conjunctiva NECK; supple, normal thyroid, RESPIRATORY: Diminished to auscultation CARDIOVASCULAR: Regular S1 S2, GI: soft, normoactive bowel sounds, : No Renal angle tenderness; EXTREMITIES: No edema, no clubbing, MUSCULOSKELETAL: no muscle wasting NEURO: Awake; no lateralizing signs. SKIN: No Rash PSYCH; Flat affect Assessment & Plan Assessment/Plan (1) Pancreatitis: PLAN: Plan Patient is a 50-year-old lady with history of alcohol dependence, prior episodesof pancreatitis whopresented with abdominal pain. Patient was found to have elevated lipase levels. 1. Acute on chronic pancreatitis ? Patient has been admitted to a monitored bed for symptom management including IV fluids, pain meds as well as antinausea medication. Plan is for patient to follow-up with GI following discharge ? 04/28/2025 patient lipase levels down and symptoms improving 2. Hypokalemia - Secondary to GI losses. Corrected per protocol repeat labs ordered in a.m. for follow-up 3. Elevated transaminases ? Patient pattern consistent with alcohol use we will monitor ? 04/28/2025 patient transaminases continue to rise repeat labs ordered in the 4. Dyslipidemia ?Patient is on statin therapy, continued at home dose 5. COPD ? Currently not in exacerbation aerosol treatments as needed 6. Hypertension ? Blood pressure controlled, home medications continued with dose adjustment as needed 7. Diabetes mellitus type 2 ? Held patient oral antihypertensive agent placed on Accu-Cheks AC and at bedtime with sliding scale coverage 8. GERD ? Patient was placed on PPI 9. Tobacco dependence ? Counseled on cessation, offered nicotine patch for tobacco cravings 10. Depression with anxiety ? Patient is on citalopram bupropion as well as buspirone did continue 11. Macrocytosis ? Secondary to chronic alcohol use repeat CBC with differential ordered in a.m. 12. Mild hyponatremia ? Secondary to hypovolemic hyponatremia started on IV fluid with BMP ordered fora.m. 13. Chronic alcohol dependence ? Counseled on cessation 14. DVT prophylaxis ? On enoxaparin 15. DVT prophylaxis ? On enoxaparin 16. Hallucinations ?? Alcohol withdrawal patient denies being jittery. Will continue with monitoring and start patienton phenobarb. Initiated CIWA protocol Time spent in the patient's overall evaluation,decision-making process, review of diagnostic data, adjustment of management, discussion with other providers, nursing nursing and ancillary staff involved in patient's care documentation, 52 Minutes Charges/Coding Visit Charges Inpatient E&M: 26161 Subs Hosp L3 04/28/25 0947 Cosigner Signature (if applicable): CC: ~ Signed [facility]05-30-2025 Progress note Author Canelo Myers [facility] Note Date/Time April 27, 2025 1:15p m [facility] Medical Records Department [address] [place] [address] Progress Note - Hospitalist 04/27/25 0939 MR#: [id number] Acct: [id number] Name: JOSEPH RINOCN Rep #:[id number] : 1975 50 From: Canelo Myers MD PCP: Dr. Abisai Haley MD Status:ADM IN Location: [place] [address] Reason for Visit Reason for Visit: Diagnoses Acute pancreatitis without necrosis or infection, unspecified (04/26/25) Subjective Subjective Patient is a 50-year-old lady with history of alcohol dependence, prior episodesof pancreatitis who presented with abdominal pain. Patient was found to have elevated lipase levels. Objective Data Objective Data Vital Signs: Vital Signs Temp Pulse Resp BP Pulse Ox O2 Del Method 97.0 F L 100 17 156/80 H 92 Room Air 04/27/25 07:37 04/27/25 09:16 04/27/25 07:37 04/27/25 07:37 04/27/25 07:37 04/27/25 07:49 Oxygen Delivery Method Room Air Weight: 59.5 kg Body Mass Index (BMI) 22.5 Intake & Output: Intake and Output for Last 24 Hours 04/25/25 04/26/25 04/27/25 23:59 23:59 23:59 Intake Total 1743.33 / 1743.33 677.5 / 677.5 Balance 1743.33 / 1743.33 677.5 / 677.5 Lab / Micro Data 04/27/25 01:39 04/27/25 01:39 Labs: Laboratory Results - last 24 hr 04/26/25 14:22: WBC 10.4, RBC 4.09 L, Hgb 14.8, Hct 42.8, MCV 104.6 H, MCH 36.2 H, MCHC 34.6, RDW Std Deviation 49.4 H, RDW Coeff of Braxton 12.8, Plt Count 175, MPV 10.0, Immature Gran % (Auto) 0.700, Neut % (Auto) 84.6 H, Lymph % (Auto) 7.3L, Yates % (Auto) 7.0, Eos % (Auto) 0.0, Baso % (Auto) 0.4, Absolute Neuts (auto)8.8 H, Absolute Lymphs (auto) 0.76 L, Nucleated RBC % 0.2, Sodium 139, Potassium2.8 L, Chloride 87 L, Carbon Dioxide 16.4 L, Anion Gap 36 H, BUN 8, Creatinine 0.70, Estim Creat Clear Calc 84.87, Est GFR (MDRD) Non-Af 107, BUN/Creatinine Ratio 11.2, Glucose 156 H, Calcium 8.9, Total Bilirubin 1.42 H, AST 127 H, ALT 62 H, Alkaline Phosphatase 122 H, Total Protein 7.7, Albumin 4.5, Globulin 3.2, Albumin/Globulin Ratio 1.4, Lipase 1045 H 04/26/25 16:05: Ethyl Alcohol < 10.1 04/26/25 16:12: Urine Color Yellow, Urine Clarity Clear, Urine pH 6.0, Ur Specific [place] 1.010, Urine Protein 30 H, Urine Glucose (UA) 1000 H, Urine Ketones 150 A*, Urine Occult Blood 10 H, Urine Nitrite Negative, Urine BilirubinNegative, Urine Urobilinogen 1 H, Ur Leukocyte Esterase Negative, Urine RBC 0-5 SEEN, Urine WBC 0 SEEN, Ur Squamous Epith Cells 0-5 SEEN, Urine Bacteria 0 SEEN,Urine Mucus 0 SEEN 04/26/25 21:25: PT 13.3, INR 1.0 04/27/25 01:39: WBC 11.4 H, RBC 3.69 L, Hgb 13.5, Hct 39.2, MCV 106.2 H, MCH 36.6 H, MCHC 34.4, RDW Std Deviation 49.7 H, RDW Coeff of Braxton 12.7, Plt Count 153, MPV 9.7, Immature Gran % (Auto) 0.400, Neut % (Auto) 84.0 H, Lymph % (Auto)7.3 L, Yates % (Auto) 7.9, Eos % (Auto) 0.1, Baso % (Auto) 0.3, Absolute Neuts (auto) 9.6 H, Absolute Lymphs (auto) 0.83, Nucleated RBC % 0, PT 12.9, INR 1.0, Sodium 134, Potassium 3.8, Chloride 96 L, Carbon Dioxide 16.0 L, Anion Gap 22 H,BUN 6, Creatinine 0.69 L, Estim Creat Clear Calc 86.10, Est GFR (MDRD) Non-Af 107, BUN/Creatinine Ratio 9.1 L, Glucose 132 H, Calcium 8.0, Phosphorus 3.3, Magnesium 0.9 L*, Total Bilirubin 0.99, Direct Bilirubin 0.54 H, AST 96 H, ALT 46H, Alkaline Phosphatase 98, Total Protein 6.6, Albumin 3.9, Globulin 2.7, Albumin/Globulin Ratio 1.4, TSH 4.010 04/27/25 06:22: POC Glucose 107 H Radiography Diagnostic Testing: Radiology Impression Abdomen/Pelvis CT 04/26/25 14:17 IMPRESSION: Findings in keeping with acute pancreatitis superimposed on chronic pancreatitis. Diffuse fatty infiltration of the liver. Reading Location: [id number] Physical Exam Narrative GENERAL: cooperative HEENT: Atraumatic; normocephalic EYES; Anicteric, Normal Conjunctiva NECK; supple, normal thyroid, RESPIRATORY: Diminished to auscultation CARDIOVASCULAR: Regular S1 S2, GI: soft, normoactive bowel sounds, : No Renal angle tenderness; EXTREMITIES: No edema, no clubbing, MUSCULOSKELETAL: no muscle wasting NEURO: Awake; no lateralizing signs. SKIN: No Rash PSYCH; Flat affect Assessment & Plan Assessment/Plan (1) Pancreatitis: PLAN: Plan Patient is a 50-year-old lady with history of alcohol dependence, prior episodesof pancreatitis who presented with abdominal pain. Patient was found to have elevated lipase levels. 1. Acute on chronic pancreatitis ? Patient has been admitted to a monitored bed for symptom management including IV fluids, pain meds as well as antinausea medication. Plan is for patient to follow-up with GI following discharge 2. Hypokalemia - Secondary to GI losses. Corrected per protocol repeat labs ordered in a.m. for follow-up 3. Elevated transaminases ? Patient pattern consistent with alcohol use we will monitor 4. Dyslipidemia ?Patient is on statin therapy, continued at home dose 5. COPD ? Currently not in exacerbation aerosol treatments as needed 6. Hypertension ? Blood pressure controlled, home medications continued with dose adjustment as needed 7. Diabetes mellitus type 2 ? Held patient oral antihypertensive agent placed on Accu-Cheks AC and at bedtime with sliding scale coverage 8. GERD ? Patient was placed on PPI 9. Tobacco dependence ? Counseled on cessation, offered nicotine patch for tobacco cravings 10. Depression with anxiety ? Patient is on citalopram bupropion as well as buspirone did continue 11. Macrocytosis ? Secondary to chronic alcohol use repeat CBC with differential ordered in a.m. 12. Mild hyponatremia ? Secondary to hypovolemic hyponatremia started on IV fluid with BMP ordered fora.m. 13. Chronic alcohol dependence ? Counseled on cessation 14. DVT prophylaxis ? On enoxaparin 15. DVT prophylaxis ? On enoxaparin Time spent in the patient's overall evaluation,decision-making process, review of diagnostic data, adjustment of management, discussion with other providers, nursing nursing and ancillary staff involved in patient's care documentation, 50 Minutes Charges/Coding Visit Charges Inpatient E&M: 63139 [facility] Hosp 04/27/25 3156 <Electronically signed by Canelo Myers MD> Cosigner Signature (if applicable): CC: ~ Signed [facility] Work Phone: 1(348) 654-176405-30-2025 Progress note [facility] Medical Records Department [address] [place] [address] Progress Note - Hospitalist 04/27/25 0939 MR#: [id number] Acct: [id number] Name: JOSEPH RINCON Rep #:[id number] : 1975 50 From: Canelo Myers MD PCP: Dr. Abisai Haley MD Status:ADM IN Location: [place] [address] Reason for Visit Reason for Visit: Diagnoses Acute pancreatitis without necrosis or infection, unspecified (04/26/25) Subjective Subjective Patient is a 50-year-old lady with history of alcohol dependence, prior episodesof pancreatitis whopresented with abdominal pain. Patient was found to have elevated lipase levels. Objective Data Objective Data Vital Signs: Vital Signs Temp Pulse Resp BP Pulse Ox O2 Del Method 97.0 F L 100 17 156/80 H 92 Room Air 04/27/25 07:37 04/27/25 09:16 04/27/25 07:37 04/27/25 07:37 04/27/25 07:37 04/27/25 07:49 Oxygen Delivery Method Room Air Weight: 59.5 kg Body Mass Index (BMI) 22.5 Intake & Output: Intake and Output for Last 24 Hours 04/25/25 04/26/25 04/27/25 23:59 23:59 23:59 Intake Total 1743.33 / 1743.33 677.5 / 677.5 Balance 1743.33 / 1743.33 677.5 / 677.5 Lab / Micro Data 04/27/25 01:39 04/27/25 01:39 Labs: Laboratory Results - last 24 hr 04/26/25 14:22: WBC 10.4, RBC 4.09 L, Hgb 14.8, Hct 42.8, MCV 104.6 H, MCH 36.2 H, MCHC 34.6, RDW Std Deviation 49.4 H, RDW Coeff of Braxton 12.8, Plt Count 175, MPV 10.0, Immature Gran % (Auto) 0.700, Neut % (Auto) 84.6 H, Lymph % (Auto) 7.3L, Yates % (Auto) 7.0, Eos % (Auto) 0.0, Baso % (Auto) 0.4, Absolute Neuts (auto)8.8 H, Absolute Lymphs (auto) 0.76 L, Nucleated RBC % 0.2, Sodium 139, Potassium2.8 L, Chloride 87 L, Carbon Dioxide 16.4 L, Anion Gap 36 H, BUN 8, Creatinine 0.70, Estim Creat Clear Calc 84.87, Est GFR (MDRD) Non-Af 107, BUN/Creatinine Ratio 11.2, Glucose 156 H, Calcium 8.9, Total Bilirubin 1.42 H, AST 127 H, ALT 62 H, Alkaline Phosphatase 122 H, Total Protein 7.7, Albumin 4.5, Globulin 3.2, Albumin/Globulin Ratio 1.4, Lipase 1045 H 04/26/25 16:05: Ethyl Alcohol < 10.1 04/26/25 16:12: Urine Color Yellow, Urine Clarity Clear, Urine pH 6.0, Ur Specific [place] 1.010, Urine Protein 30 H, Urine Glucose (UA) 1000 H, Urine Ketones 150 A*, Urine Occult Blood 10 H, Urine Nitrite Negative, Urine BilirubinNegative, Urine Urobilinogen 1 H, Ur Leukocyte Esterase Negative, Urine RBC 0-5 SEEN, Urine WBC 0 SEEN, Ur Squamous Epith Cells 0-5 SEEN, Urine Bacteria 0 SEEN,Urine Mucus 0 SEEN 04/26/25 21:25: PT 13.3, INR 1.0 04/27/25 01:39: WBC 11.4 H, RBC 3.69 L, Hgb 13.5, Hct 39.2, MCV 106.2 H, MCH 36.6 H, MCHC 34.4, RDWStd Deviation 49.7 H, RDW Coeff of Braxton 12.7, Plt Count 153, MPV 9.7, Immature Gran % (Auto) 0.400, Neut % (Auto) 84.0 H, Lymph % (Auto)7.3 L, Yates % (Auto) 7.9, Eos % (Auto) 0.1, Baso % (Auto) 0.3, Absolute Neuts (auto) 9.6 H, Absolute Lymphs (auto) 0.83, Nucleated RBC % 0, PT 12.9, INR 1.0, [id number], Potassium 3.8, Chloride 96 L, Carbon Dioxide 16.0 L, Anion Gap 22 H,BUN 6, Creatinine 0.69 L, Estim Creat Clear Calc 86.10, Est GFR (MDRD) Non- Af 107, BUN/Creatinine Ratio 9.1 L, Glucose 132 H, Calcium 8.0, Phosphorus 3.3, Magnesium 0.9 L*, Total Bilirubin 0.99, Direct Bilirubin 0.54 H, AST 96H, ALT 46H, Alkaline Phosphatase 98, Total Protein 6.6, Albumin 3.9, Globulin 2.7, Albumin/GlobulinRatio 1.4, TSH 4.010 04/27/25 06:22: POC Glucose 107 H Radiography Diagnostic Testing: Radiology Impression Abdomen/Pelvis CT 04/26/25 14:17 IMPRESSION: Findings in keeping with acute pancreatitis superimposed on chronic pancreatitis. Diffuse fatty infiltration of the liver. Reading Location: [facility] Physical Exam Narrative GENERAL: cooperative HEENT: Atraumatic; normocephalic EYES; Anicteric, Normal Conjunctiva NECK; supple, normal thyroid, RESPIRATORY: Diminished to auscultation CARDIOVASCULAR: Regular S1 S2, GI: soft, normoactive bowel sounds, : No Renal angle tenderness; EXTREMITIES: No edema, no clubbing, MUSCULOSKELETAL: no muscle wasting NEURO: Awake; no lateralizing signs. SKIN: No Rash PSYCH; Flat affect Assessment & Plan Assessment/Plan (1) Pancreatitis: PLAN: Plan Patient is a 50-year-old lady with history of alcohol dependence, prior episodesof pancreatitis whopresented with abdominal pain. Patient was found to have elevated lipase levels. 1. Acute on chronic pancreatitis ? Patient has been admitted to a monitored bed for symptom management including IV fluids, pain meds as well as antinausea medication. Plan is for patient to follow-up with GI following discharge 2. Hypokalemia - Secondary to GI losses. Corrected per protocol repeat labs ordered in a.m. for follow-up 3. Elevated transaminases ? Patient pattern consistent with alcohol use we will monitor 4. Dyslipidemia ?Patient is on statin therapy, continued at home dose 5. COPD ? Currently not in exacerbation aerosol treatments as needed 6. Hypertension ? Blood pressure controlled, home medications continued with dose adjustment as needed 7. Diabetes mellitus type 2 ? Held patient oral antihypertensive agent placed on Accu-Cheks AC and at bedtime with sliding scale coverage 8. GERD ? Patient was placed on PPI 9. Tobacco dependence ? Counseled on cessation, offered nicotine patch for tobacco cravings 10. Depression with anxiety ? Patient is on citalopram bupropion as well as buspirone did continue 11. Macrocytosis ? Secondary to chronic alcohol use repeat CBC with differential ordered in a.m. 12. Mild hyponatremia ? Secondary to hypovolemic hyponatremia started on IV fluid with BMP ordered fora.m. 13. Chronic alcohol dependence ? Counseled on cessation 14. DVT prophylaxis ? On enoxaparin 15. DVT prophylaxis ? On enoxaparin Time spent in the patient's overall evaluation,decision-making process, review of diagnostic data, adjustment of management, discussion with other providers, nursing nursing and ancillary staff involved in patient's care documentation, 50 Minutes Charges/Coding Visit Charges Inpatient E&M: 45258 Subs Hosp L3 04/27/25 1315 Cosigner Signature (if applicable): CC: ~ Signed [facility]05-29-2025 History and physical note Author Julius Moncada [facility] Note Date/Time April 26, 2025 8:28p m [facility] Medical Records Department [address] [place] [address] H&P Exam - Hospitalist 04/26/25 1718 MR#: [id number] Acct: [id number] Name: JOSEPH RINCON Rep #:[id number] : 1975 50 From: Julius Moncada MD PCP: Dr. Abisai Haley MD Status:ADM IN Location: [place] [id number] HPI - General General Date of Admission: 04/26/25 Date of Service: 04/26/25 Chief Complaint: Abdominal pain HPI Narrative JOSEPH RINCON, is a 50 F with past medical history of alcohol abuse, chronic nicotine dependence, prior episodes of pancreatitis, anxiety, type 2 diabetes onmetformin and empagliflozin, suspected bronchitis, hypertension on amlodipine, [...] phosphatase 122 total protein 7.7, albumin 4.5 [facility] Medical History Strain of left foot Plantar [...] 81 mg PO DAILY@0800 #30 tabs 11/19/22 04/26/25 Rx bupropion HCl 150 mg 24 hr tablet, 150 mg PO DAILY Unknown History extended release budesonide-formoterol HFA 80 1 puff inhalation BID SOB /wheezing 04/09/23 04/26/25 History mcg-4.5 mcg/actuation aerosol inhaler [...] PRN PRN anxi ety 04/04/25 Unknown History citalopram 40 mg tablet 40 mg PO DAILY 04/11/25 Unkn own History levocetirizine 5 mg tablet 5 mg PO DAILY 04/11/25 Unkn own History lisinopril 40 mg tablet 40 mg PO DAILY 04/11/25 Unkn own History atorvastatin 40 mg tablet 40 mg PO DAILY #30 tabs 03/29 08/23 Unknown Rx budesonide-formoterol HFA 160 2 puff inhalation BID SO B 04/26/25 Unknown History mcg-4.5 mcg/actuation aerosol inhaler [...] liquor substance use type: does not use Vital Signs Vital Signs Vital Signs: 04/26/25 13:42 04/26/25 15:41 04/26/25 [...] Air Room Air Room Air 04/26/25 16:19 04/26/25 16:34 04/26/25 16:45 Temperature 98.1 F Temperature Source Pulse Rate 79 86 Respiratory Rate 19 H 14 Blood Pressure 194/86 H 176/80 H Blood Pressure Mean 122 108 Blood Pressure Source Blood Pressure Position Blood Pressure Location Pulse Ox 97 96 Oxygen Delivery Method 04/26/25 17:00 Temperature Temperature Source Pulse Rate 90 Respiratory Rate 29 H Blood Pressure 169/86 H Blood Pressure Mean 110 Blood Pressure Source Blood Pressure Position Blood Pressure Location Pulse Ox 95 Oxygen Delivery Method Room Air Weight Weight: 130 lb Body Mass Index (BMI) 22.3 Physical Exam Const alert and oriented x3 HEENT normocephalic and head/scalp atraumatic Eyes PERRL and EOMs intact bilaterally Neck no lymphadenopathy Resp normal respiratory effort Cardio regular rate and regular rhythm GI GI Narrative: Tenderness present on superficial palpation in the epigastric region Extremity normal to inspection Neuro oriented x3, CN's II-XII intact bilaterally, moves all extremities and no focal motor deficits Results Medical Records Data Attestation: I reviewed the patient's medical records Lab / Micro Data Attestation: I reviewed the patient's lab results. 04/26/25 14:22 04/26/25 14:22 Labs: Laboratory Results - last 24 hr 04/26/25 14:22: WBC 10.4, RBC 4.09 L, Hgb 14.8, Hct 42.8, MCV 104.6 H, MCH 36.2 H, MCHC 34.6, RDW Std Deviation 49.4 H, RDW Coeff of Braxton 12.8, Plt Count 175, MPV 10.0, Immature Gran % (Auto) 0.700, Neut % (Auto) 84.6 H, Lymph % (Auto) 7.3L, Yates % (Auto) 7.0, Eos % (Auto) 0.0, Baso % (Auto) 0.4, Absolute Neuts (auto)8.8 H, Absolute Lymphs (auto) 0.76 L, Nucleated RBC % 0.2, Sodium 139, Potassium2.8 L, Chloride 87 L, Carbon Dioxide 16.4 L, Anion Gap 36 H, BUN 8, Creatinine 0.70, Estim Creat Clear Calc 84.87, Est GFR (MDRD) Non-Af 107, BUN/Creatinine Ratio 11.2, Glucose 156 H, Calcium 8.9, Total Bilirubin 1.42 H, AST 127 H, ALT 62 H, Alkaline Phosphatase 122 H, Total Protein 7.7, Albumin 4.5, Globulin 3.2, Albumin/Globulin Ratio 1.4, Lipase 1045 H 04/26/25 16:05: Ethyl Alcohol < 10.1 04/26/25 16:12: Urine Color Yellow, Urine Clarity Clear, Urine pH 6.0, Ur Specific [place] 1.010, Urine Protein 30 H, Urine Glucose (UA) 1000 H, Urine Ketones 150 A*, Urine Occult Blood 10 H, Urine Nitrite Negative, Urine BilirubinNegative, Urine Urobilinogen 1 H, Ur Leukocyte Esterase Negative, Urine RBC 0-5 SEEN, Urine WBC 0 SEEN, Ur Squamous Epith Cells 0-5 SEEN, Urine Bacteria 0 SEEN,Urine Mucus 0 SEEN Imaging Radiology Impression Abdomen/Pelvis CT 04/26/25 14:17 IMPRESSION: Findings in keeping with acute pancreatitis superimposed on chronic pancreatitis. Diffuse fatty infiltration of the liver. Reading Location: [id number] Assessment & Plan Assessment/Plan (1) Pancreatitis: PLAN: Plan 50-year-old female with past medical history of alcohol abuse, chronic nicotine dependence, prior episodes of pancreatitis, anxiety, type 2 diabetes on metformin and empagliflozin, suspected bronchitis, hypertension on amlodipine, lisinopril 40, metoprolol succinate and GERD presented to the hospital with concerns regarding ongoing abdominal pain for the last 2 days that is radiating to the back with findings of like elevated lipase and also edematous pancreas oncross-sectional imaging. #Acute on chronic pancreatitis - Has chronic pancreatitis based on imaging findings - No concerns regarding exocrine insufficiency - [place] pain control with Tylenol and opioids - IV LR at the rate of mL 1.5 mL/kg for 12 hours - Full liquid diet and will advance as tolerated - Likely reason for her episodes of pancreatitis is the ongoing smoking - IV Zofran for nausea/ vomiting control - Establish follow up in the GI clinic for pancreatitis #Hypokalemia - This is in the setting of ongoing diarrhea, nausea vomiting - Received correction in the ED - Repeat potassium levels # Elevated liver enzymes - Findings suspicious for acute alcoholic otitis - Monitor INR, if elevated will calculate Madrey score #Alcohol abuse - Last drink was 2 days back - No concerns regarding withdrawal -Importance of maintaining abstinence was emphasized #Chronic smoking - Smokes about half pack daily - Nicotine replacement therapy while admitted # Diabetes - HbA1c levels - Insulin as per sliding scale - Risk of medication related pancreatitis is low with the current medications, also the medicines are not new # Depression: - Continue home medications - No active concerns # HTN - Continue home medications # Full code # DVT prophylaxis: Enoxaparin subcutaneous 04/26/252027 <Electronically signed by Julius Moncada MD> Cosigner Signature (if applicable): CC: Dr. Julius Moncada MD; Dr. Abisai Haley MD~ Signed [facility] Work Phone: 1(817) 441-571105-29-2025 History and physical note [facility] Medical Records Department [address] [place] [address] H&P Exam - Hospitalist 04/26/25 1718 MR#: [id number] Acct: [id number] Name: JOSEPH RINCON Rep #:[id number] : 1975 50 From: Julius Moncada MD PCP: Dr. Abisai Haley MD Status:ADM IN Location: [place] [address] HPI - General General Date of Admission: 04/26/25 Date of Service: 04/26/25 Chief Complaint: Abdominal pain HPI Narrative JOSEPH RINCON, is a 50 F with past medical history of alcohol abuse, chronic nicotine dependence, prior episodes of pancreatitis, anxiety, type 2 diabetes onmetformin and empagliflozin, suspected bronchitis, hypertension on amlodipine, [...] phosphatase 122 total protein 7.7, albumin 4.5 [facility] Medical History Strain of left foot Plantar [...] 81 mg PO DAILY@0800 #30 tabs 11/19/22 04/26/25 Rx bupropion HCl 150 mg 24 hr tablet, 150 mg PO DAILY Unknown History extended release budesonide-formoterol HFA 80 1 puff inhalation BID SOB /wheezing 04/09/23 04/26/25 History mcg-4.5 mcg/actuation aerosol inhaler [...] acids 1,000 mg 1,000 mg PO DAILY 09/27/2 3 Unknown History capsule albuterol sulfate 90 [...] PRN PRN anxi ety 04/04/25 Unknown History citalopram 40 mg tablet 40 mg PO DAILY 04/11/25 Unkn own History levocetirizine 5 mg tablet 5 mg PO DAILY 04/11/25 Unkn own History lisinopril 40 mg tablet 40 mg PO DAILY 04/11/25 Unkn own History atorvastatin 40 mg tablet 40 mg PO DAILY #30 tabs 03/29 08/23 Unknown Rx budesonide-formoterol HFA 160 2 puff inhalation BID SO B 04/26/25 Unknown History mcg-4.5 mcg/actuation aerosol inhaler [...] liquor substance use type: does not use Vital Signs Vital Signs Vital Signs: 04/26/25 13:42 04/26/25 15:41 04/26/25 [...] Air Room Air Room Air 04/26/25 16:19 04/26/25 16:34 04/26/25 16:45 Temperature 98.1 F Temperature Source Pulse Rate 79 86 Respiratory Rate 19 H 14 Blood Pressure 194/86 H 176/80 H Blood Pressure Mean 122 108 Blood Pressure Source Blood Pressure Position Blood Pressure Location Pulse Ox 97 96 Oxygen Delivery Method 04/26/25 17:00 Temperature Temperature Source Pulse Rate 90 Respiratory Rate 29 H Blood Pressure 169/86 H Blood Pressure Mean 110 Blood Pressure Source Blood Pressure Position Blood Pressure Location Pulse Ox 95 Oxygen Delivery Method Room Air Weight Weight: 130 lb Body Mass Index (BMI) 22.3 Physical Exam Const alert and oriented x3 HEENT normocephalic and head/scalp atraumatic Eyes PERRL and EOMs intact bilaterally Neck no lymphadenopathy Resp normal respiratory effort Cardio regular rate and regular rhythm GI GI Narrative: Tenderness present on superficial palpation in the epigastric region Extremity normal to inspection Neuro oriented x3, CN's II-XII intact bilaterally, moves all extremities and no focal motor deficits Results Medical Records Data Attestation: I reviewed the patient's medical records Lab / Micro Data Attestation: I reviewed the patient's lab results. 04/26/25 14:22 04/26/25 14:22 Labs: Laboratory Results - last 24 hr 04/26/25 14:22: WBC 10.4, RBC 4.09 L, Hgb 14.8, Hct 42.8, MCV 104.6 H, MCH 36.2 H, MCHC 34.6, RDW Std Deviation 49.4 H, RDW Coeff of Braxton 12.8, Plt Count 175, MPV 10.0, Immature Gran % (Auto) 0.700, Neut % (Auto) 84.6 H, Lymph % (Auto) 7.3L, Yates % (Auto) 7.0, Eos % (Auto) 0.0, Baso % (Auto) 0.4, Absolute Neuts (auto)8.8 H, Absolute Lymphs (auto) 0.76 L, Nucleated RBC % 0.2, Sodium 139, Potassium2.8 L, Chloride 87 L, Carbon Dioxide 16.4 L, Anion Gap 36 H, BUN 8, Creatinine 0.70, Estim Creat Clear Calc 84.87, Est GFR (MDRD) Non-Af 107, BUN/Creatinine Ratio 11.2, Glucose 156 H, Calcium 8.9, Total Bilirubin 1.42 H, AST 127 H, ALT 62 H, Alkaline Phosphatase 122 H, Total Protein 7.7, Albumin 4.5, Globulin 3.2, Albumin/Globulin Ratio 1.4, Lipase 1045 H 04/26/25 16:05: Ethyl Alcohol < 10.1 04/26/25 16:12: Urine Color Yellow, Urine Clarity Clear, Urine pH 6.0, Ur Specific [place] 1.010, Urine Protein 30 H, Urine Glucose (UA) 1000 H, Urine Ketones 150 A*, Urine Occult Blood 10 H, Urine Nitrite Negative, Urine BilirubinNegative, Urine Urobilinogen 1 H, Ur Leukocyte Esterase Negative, Urine RBC 0-5 SEEN, Urine WBC 0 SEEN, Ur Squamous Epith Cells 0-5 SEEN, Urine Bacteria 0 SEEN,Urine Mucus 0 SEEN Imaging Radiology Impression Abdomen/Pelvis CT 04/26/25 14:17 IMPRESSION: Findings in keeping with acute pancreatitis superimposed on chronic pancreatitis. Diffuse fatty infiltration of the liver. Reading Location: [id number] Assessment & Plan Assessment/Plan (1) Pancreatitis: PLAN: Plan 50-year-old female with past medical history of alcohol abuse, chronic nicotine dependence, prior episodes of pancreatitis, anxiety, type 2 diabetes on metformin and empagliflozin, suspected bronchitis, hypertension on amlodipine, lisinopril 40, metoprolol succinate and GERD presented to the hospital with concerns regarding ongoing abdominal pain for the last 2 days that is radiating to the back with findings of like elevated lipase and also edematous pancreas oncross-sectional imaging. #Acute on chronic pancreatitis - Has chronic pancreatitis based on imaging findings - No concerns regarding exocrine insufficiency - [place] pain control with Tylenol and opioids - IV LR at the rate of mL 1.5 mL/kg for 12 hours - Full liquid diet and will advance as tolerated - Likely reason for her episodes of pancreatitis is the ongoing smoking - IV Zofran for nausea/ vomiting control - Establish follow up in the GI clinic for pancreatitis #Hypokalemia - This is in the setting of ongoing diarrhea, nausea vomiting - Received correction in the ED - Repeat potassium levels # Elevated liver enzymes - Findings suspicious for acute alcoholic otitis - Monitor INR, if elevated will calculate Madrey score #Alcohol abuse - Last drink was 2 days back - No concerns regarding withdrawal -Importance of maintaining abstinence was emphasized #Chronic smoking - Smokes about half pack daily - Nicotine replacement therapy while admitted # Diabetes - HbA1c levels - Insulin as per sliding scale - Risk of medication related pancreatitis is low with the current medications, also the medicines are not new # Depression: - Continue home medications - No active concerns # HTN - Continue home medications # Full code # DVT prophylaxis: Enoxaparin subcutaneous 04/26/252027 Cosigner Signature (if applicable): CC: Dr. Julius Moncada MD; Dr. Abisai Haley MD~ Signed [facility]05-29-2025 Evaluation note* Diagnosis Onset Date Resolution Status Admit Date Hypokalemia acute April 26 5:13pm Intractable abdominal pain acute April 26, 2025 5:13pm Nausea & vomiting acute March 5:13pm Pancreatitis acute April 26 5:13pm [facility] Work Phone: [phone] Discharge summary Author Humphrey Garcia [facility] Note Date/Time April 26, 2025 4:45p m [facility] System Medical Records Department [address] [place] [address] Emergency Department Summary 04/26/25 MR#: [id number] Acct: [id number] Name: JOSEPH RINCON Rep #:[id number] : 1975 50 From: Humphrey Garcia DO [...] normal colored stool. Patient denies [facility]cont[facility] Medical History Strain of left foot Plantar [...] following commands knew that she was at [facility] the year is [...] 84.6 H Lymph % (Auto) 7.3 L Yates % (Auto) 7.0 Eos % (Auto) 0.0 [...] Clarity Clear Urine pH 6.0 Ur Specific [place] 1.010 Urine Protein 30 H Urine Glucose [...] fatty infiltration of the liver. Reading Location: [id number] Discharge Plan Triage Chief Complaint: Abd Pain [...] MD [Primary Care Provider] - Print Language: Macedonian Disposition Disposition: Acute Care Hospital [facility] What to do if you have Problems For any increased pain, shortness of breath, bleeding, nausea or vomiting, chestpain, or any unexpected problems, contact your Primary Care Provider. Call [facility] ([phone]) or report to the closest Emergency Room. Call 911 if necessary. 04/26/25 1645 <Electronically signed by Humphrey Garcia DO> Cosigner Signature (if applicable): CC: Dr. Abiasi Haley MD ~ Signed [facility] Work Phone: 1(276) 347-373405-29-2025 Discharge summary [facility] Medical Records Department [address] [place] [address] Emergency Department Summary 04/26/25 MR#: [id number] Acct: [id number] Name: JOSEPH RINCON Rep #:[id number] : 1975 50 From: Humphrey Garcia DO [...] pain, nausea, vomiting, diarrhea. Patient states that shehas been sick for approximately 4 days now and states that she cannot keep anything down. She states that since her symptoms were not improving she came here for furtherevaluation management. Patientdenies any previous abdominal surgery she statesthat she is passing gas and has normal colored stool. Patient denies any recentcontacts [facility] Medical History Strain of left foot Plantar [...] following commands knew that she was at [facility] the year is [...] presented to the emergency department chief complaint abdominalpain. On the differential diagnosis includes but not limited to pancreatitis, cholecystitis, bowel obstruction, viral gastroenteritis, appendicitis, diverticulitis. Once workup is obtained and reviewed she will be reevaluated. Patient be given IV fluids, Zofran, Bentyl. Patient CBC reviewed and showed no evidence leukocytosis white blood count normal 10.4, hemoglobin is 14.8, plate count 3175. Patient's sodium was noted be 139, patient was hypokalemic with potassiumof 2.8 she will be given 40 mill [...] accept patient for admission. Patient was notified isagreeable spinal course concerns answered. Lab Data Labs: [...] 84.6 H Lymph % (Auto) 7.3 L Yates % (Auto) 7.0 Eos % (Auto) 0.0 [...] Clarity Clear Urine pH 6.0 Ur Specific [place] 1.010 Urine Protein 30 H Urine Glucose [...] fatty infiltration of the liver. Reading Location: [id number] Discharge Plan Triage Chief Complaint: Abd Pain [...] MD [Primary Care Provider] - Print Language: Macedonian Disposition Disposition: Acute Care Hospital [facility] What to do if you have Problems For any increased pain, shortness of breath, bleeding, nausea or vomiting, chestpain, or any unexpected problems, contact your Primary Care Provider. Call [facility] ([phone]) or report tothe closest Emergency Room. Call 911 if necessary. 04/26/25 1645 Cosigner Signature (if applicable): CC: Dr. Abisai Haley MD ~ Signed [facility]05-29-2025 Radiology Diagnostic study note [facility] Imaging Services [address] [place], [place] [address] Abdomen/Pelvis W IV Cont ONLY MR#: [id number] Acct: [id number] Name: JOSEPH RINCON Rep #: [id number] : 1975 F 50 From: Jhonny Roger MD PCP: Dr. Abisai Haley MD Status: REG ER Study:Abdomen/Pelvis W IV Cont ONLY Date of E xam: 04/26/25 Exam# [id number] Ordering Dr: Becky Garcia DO PROCEDURE: ABDOMEN/PELVIS W IV CONT [...] fatty infiltration of the liver. Reading Location: [id number] CC: Dr. Abisai Haley MD; Dr. Humphrey Garcia DO ~ Dog Pound Attendant: Signed [facility]05-15-2025 Hospital Discharge instructions Additional Instructions Plenty of fluids and rest. Sleep on the main floor tonight. Due to fall risk. No driving for the next 24 hours. Use your Protonix at home for stomach discomfort due to the alcohol. Follow-up with your doctor if not improving or return if worse.[facility] Work Phone: 1(572) 826-913705-14-2025 Radiology Diagnostic study note [facility] Imaging Services [address] [place] [address] Chest PA and Lateral MR#: [id number] Acct: [id number] Name: JOSEPH RINCON Rep #: [id number] : 1975 F 50 From: Jacque Martinez MD PCP: Dr. Abisai Haley MD Status: REG ER Study:Chest PA and Lateral Date of Exam: 04/11/25 Exam# [id number] Ordering Dr: Sheron Colon MD PROCEDURE: CHEST [...] Haley MD; Dr. Francisco Colon MD ~ Dog Pound Attendant: Signed [facility]05-07-2025 Discharge summary [facility] Medical Records Department [address] [place] [address] Emergency Department Summary 04/04/25 MR#: [id number] Acct: [id number] Name: JOSEPH RINCON Rep #:[id number] : 1975 50 From: Imani Ruelas PCP: [...] had intermittent hot flashes and then chills/sweats. PFSH PFS Medical History Strain of left foot Plantar [...] tablet 40 mg PO DAILY #30 tabs 2 12/22 Unknown Rx albuterol sulfate 90 mcg/actuation [...] 77.0 H Lymph % (Auto) 14.0 L Yates % (Auto) 7.8 Eos % (Auto) 0.2 [...] process is seen. Negative examination. Reading Location: [facility]-1 Abdomen/Pelvis CT 04/04/25 12:02 IMPRESSION: 1. Correlate [...] 4. Additional description as above. Reading Location: [facility] Rhythm Strip Rhythm Strip: Sinus Tach [...] Staff - Active Staff] - Print Language: Macedonian Disposition Disposition: Home, Self Care What to do if you have Problems For any increased pain, shortness of breath, bleeding, nausea or vomiting, chestpain, or any unexpected problems, contact your Primary Care Provider. Call [facility] ([phone]) or report tothe closest Emergency Room. Call 911 if necessary. 04/04/25 1607 Cosigner Signature (if applicable): CC: Dr. Abisai Haley MD ~ Signed [facility]05-07-2025 Discharge summary Author Imani Knight [facility] Note Date/Time April 04, 2025 4:07pm [facility] Medical Records Department [address] [facility] [place] [address] Emergency Department Summary 04/04/25 MR#: [id number] Acct: [id number] Name: JOSEPH RINCON Rep #:[id number] : 1975 50 From: Imani Ruelas PCP: [...] had intermittent hot flashes and then chills/sweats. [facility] Medical History Strain of left foot Plantar [...] 77.0 H Lymph % (Auto) 14.0 L Yates % (Auto) 7.8 Eos % (Auto) 0.2 [...] process is seen. Negative examination. [facility] Abdomen/Pelvis CT 04/04/25 12:02 IMPRESSION: 1. Correlate [...] 4. Additional description as above. Reading Location: [id number] Rhythm Strip Rhythm Strip: Sinus Tach Rate: [...] Staff - Active Staff] - Print Language: Macedonian Disposition Disposition: Home, Self Care What to do if you have Problems For any increased pain, shortness of breath, bleeding, nausea or vomiting, chestpain, or any unexpected problems, contact your Primary Care Provider. Call [facility] ([phone]) or report to the closest Emergency Room. Call 911 if necessary. 04/04/25 1607 <Electronically signed by Imani Knight DO> Cosigner Signature (if applicable): CC: Dr. Abisai Haley MD ~ Signed [facility] Work Phone: 1(922) 295-952205-07-2025 Radiology Diagnostic study note [facility] Imaging Services [address] [place], [place] [address] Abdomen/Pelvis W IV Cont ONLY MR#: [id number] Acct: [id number] Name: JOSEPH RINCON Rep #: [id number] : 1975 F 50 From: Odalis Giraldo MD PCP: Dr. Abisai Haley MD Status: REG ER Study:Abdomen/Pelvis W IV Cont ONLY Date of E xam: 04/04/25 Exam# [id number] Ordering Dr: Selene Knight DO PROCEDURE: ABDOMEN/PELVIS [...] lobe airspace disease is new from prior, [id number] x 24 mm (series 2, image 11). [...] 4. Additional description as above. Reading Location: [facility] CC: Dr. Abisai Haley MD; Dr. Imani Knight DO ~ Dog Pound Attendant: Signed [facility]05-07-2025 Radiology Diagnostic study note [facility] Imaging Services [address] [place] [address] Chest 1 View (Portable) MR#: [id number] Acct: [id number] Name: JOSEPH RINCON Rep #: [id number] : 1975 F 50 From: Guido Valles MD PCP: Dr. Abisai Haley MD Status: REG ER Study:Chest 1 View (Portable) Date of Exam: 04/04/25 Exam# [id number] Ordering Dr: Selene Knight DO PROCEDURE: CHEST 1 VIEW (PORTABLE) 04/04/2025 REASON FOR EXAM: CHEST PAIN TECHNIQUE: Frontal view of the chest. COMPARISON: Chest x-ray 11/12/2024 RAD/Chest 1 View (Portable) IMPRESSION: Lungs appear clear throughout. No pleural effusion or pneumothorax is seen. The cardiomediastinal silhouette is stable, without evidence of cardiomegaly. No acute osseous process is seen. Negative examination. Reading Location: [place] [address] CC: Dr. Abisai Haley MD; Dr. Imani Knight DO ~ Dog Pound Attendant: Signed [facility]05-25-2024 NoteHNO ID: [id number] Author: ARETHA SCHOFIELD APRN.GRADUATE RN Service: ? Author Type: Nurse Practitioner Type: [...] MOUNIKA (obstructive sleep apnea) mild 10/09/2014 Pancreatitis 2011 Recurrent. Pseudocyst of pancreas 2011 aspirated Tobacco [...] drugs Objective Physical Exam (more content not included)...[facility]05-25-2024 Instructions * Patient Instructions* Aretha Schofield APRN.GRADUATE RN - 04/22/2024 2:02 PM EDT ASSESSMENT/PLAN: 1. [...] Discussed expected course of illness Aretha Schofield APRN.GRADUATE RN [facility] of Present illness Narrative* Aretha Schofield APRN.EVERETT - 04/22/2024 1:56 PM EDT Subjective Sinus [...] MOUNIKA (obstructive sleep apnea) mild 10/09/2014 Pancreatitis 2011 Recurrent. Pseudocyst of pancreas 2010 aspirated Tobacco [...] Discussed expected course of illness Aretha Schofield APRN.GRADUATE RN [facility] in [facility] Discharge summary Author Caprice Jerry [facility] July 29, 2023 5:41pm Note Date/Time July 29, 2023 2: 37pm [facility] Medical Records Department [address] [place] [address] Emergency Department Summary 07/29/23 MR#: [id number] Acct: [id number] Name: JOSEPH RINCON Rep #:[id number] : 1975 48 From: Caprice Jerry MD [...] time that did not show any disease. [facility] Medical History Acute lumbar myofascial strain Alcohol [...] % (Auto) 63.7 Lymph % (Auto) 25.4 Yates % (Auto) 8.5 Eos % (Auto) 1.6 [...] Referrals: Milana Garcia, [Primary Care Provider] - 1 Week Disposition Disposition: Home, Self Care What to do if you have Problems For any increased pain, shortness of breath, bleeding, nausea or vomiting, chestpain, or any unexpected problems, contact your Primary Care Provider. Call [facility] ([phone]) or report to the closest Emergency Room. Call 911 if necessary. 07/29/23 1741 <Electronically signed by Caprice Jerry MD> Cosigner Signature (if applicable): CC: Milana Garcia, ~ Signed [facility] Work Phone: 1([phone]) 130-505606-27-[address] Jerry [facility] May 25, 2023 2:53am Note Date/Time May 24, 2023 11:2 0pm [facility] Medical Records Department [address] [facility] [place] [address] Emergency Department Summary 05/24/23 MR#: [id number] Acct: [id number] Name: JOSEPH RINCON Rep #:[id number] : 1975 48 From: Caprice Jerry MD PCP: Milana Garcia DO Status:REG E [...] blood pressure. She just received a 14-day classroom monitor in the mail that she will wear. [...] but there has never been seizures documented. [facility] Medical History Acute lumbar myofascial strain Alcohol [...] 40.3 L Lymph % (Auto) 45.0 H Yates % (Auto) 11.4 H Eos % (Auto) [...] Color Urine Clarity Urine pH Ur Specific [place] Urine Protein Urine Glucose (UA) Urine Ketones [...] (Auto) Neut % (Auto) Lymph % (Auto) Yates % (Auto) Eos % (Auto) Baso % [...] Clarity Clear Urine pH 6.5 Ur Specific [place] 1.005 Urine Protein Negative Urine Glucose (UA) [...] Patient's had no significant arrhythmias noted on classroom monitor throughout her ED stay. Portable chest x-ray [...] been worked up. She just got her classroom monitor in the mail tonight to put on. She states her doctor iskamila talking about a possible tilt table test. [...] Milana Garcia DO [Primary Care Provider] - 3-5 Days Disposition Disposition: Home, Self Care What to do if you have Problems For any increased pain, shortness of breath, bleeding, nausea or vomiting, chestpain, or any unexpected problems, contact your Primary Care Provider. Call [facility] ([phone]) or report to the closest Emergency Room. Call 911 if necessary. 05/25/23252 <Electronically signed by Caprice Jerry MD> Cosigner Signature (if applicable): CC: Milana Garcia DO ~ Signed [facility] Work Phone: 1(568) 967-226506-07-[address] Dyer [facility] May 05, 2023 12:31am Note Date/Time May 04, 2023 10:36 pm [facility] Medical Records Department [address] [place] [address] Emergency Department Summary 05/04/23 MR#: [id number] Acct: [id number] Name: JOSEPH RINCON Rep #:[id number] : 1975 48 From: John Dyer DO [...] a cardiac cath 11/19/2022 which was normal. [facility] Medical History Acute lumbar myofascial strain Alcohol [...] % (Auto) 51.3 Lymph % (Auto) 35.6 Yates % (Auto) 9.4 Eos % (Auto) 2.7 [...] Signed: Melody Case MD at 22:33 EDT Reading Location ID and State: [facility] / [place] Tel , Service support , Brain CT 05/04/23 22:35 IMPRESSION: No acute abnormality. Electronically Signed: [...] Milana Garcia DO [Primary Care Provider] - What to do if you have Problems For any increased pain, shortness of breath, bleeding, nausea or vomiting, chestpain, or any unexpected problems, contact your Primary Care Provider. Call [facility] ([phone]) or report to the closest Emergency Room. Call 911 if necessary. 05/05/23 0031 <Electronically signed by John Dyer DO> Cosigner Signature (if applicable): CC: Milana Garcia DO ~ Signed [facility] Work Phone: 1([phone]) 226-485405-13-[address] Johnson [facility] April 10, 2023 3:15pm Note Date/Time April 10, 2023 3:15p taisha [facility] Medical Records Department [address] [place] [address] Progress Note - Hospitalist 04/10/23 1511 MR#: [id number] Acct: [id number] Name: JOSEPH RINCON Rep #:[id number] : 1975 48 From: Radha Johnson DO PCP: Milana Garcia DO Status:ADM I N Location: [place] [address] Hospitalist Note Is a 48-year-old white female [...] some issues for her at baseline. 04/10/23 6195 <Electronically signed by Radha Johnson DO> Cosigner Signature (if applicable): CC: ~ Signed [facility] Work Phone: 1(422) 973-977105-13-[address] Jacobs [facility] April 10, 2023 7:13am Note Date/Time April 09, 2023 11:06 pm [facility] Medical Records Department [address] [place] [address] Emergency Department Summary 04/09/23 MR#: [id number] Acct: [id number] Name: JOSEPH RINCON Rep #:[id number] : 1975 48 From: David Ruelas PCP: Milana Garcia DO Status:ADM I N Location: [place] [address] HPI History of Present Illness Chief Complaint: [...] TAD Risk Factors: Negative for Hypertension PFSH PFS Medical History Acute lumbar myofascial strain Anxiety [...] 85.1 H Lymph % (Auto) 11.3 L Yates % (Auto) 1.6 Eos % (Auto) 0.4 [...] Color Urine Clarity Urine pH Ur Specific [place] Urine Protein Urine Glucose (UA) Urine Ketones [...] (Auto) Neut % (Auto) Lymph % (Auto) Yates % (Auto) Eos % (Auto) Baso % [...] Clarity Clear Urine pH 6.5 Ur Specific [place] 1.010 Urine Protein Negative Urine Glucose (UA) [...] (Auto) Neut % (Auto) Lymph % (Auto) Yates % (Auto) Eos % (Auto) Baso % [...] Color Urine Clarity Urine pH Ur Specific [place] Urine Protein Urine Glucose (UA) Urine Ketones [...] sinus rhythm with a rate of 86. OH interval, QRS interval, and QTc intervals were all normal. Vickery was normal. There are no acute ST [...] (42), Including time spent:, Discussing w/Patient &/or Family/Science And Operations Officer, Discussing w/Consultants, Arranging Admission or Transfer and Performing Direct Patient Care at Bedside Discharge Plan Dx/Rx/DC Orders Clinical Impression: High anion gap metabolic acidosis, Hypotension, Lactic acidosis Disposition Disposition: [facility] Discharge Date/Time: 04/10/23 03:28 What to do if you have Problems For any increased pain, shortness of breath, bleeding, nausea or vomiting, chestpain, or any unexpected problems, contact your Primary Care Provider. Call [facility] ([phone]) or report to the closest Emergency Room. Call 911 if necessary. 04/10/23712 <Electronically signed by David Jacobs DO> Cosigner Signature (if applicable): CC: Milana Garcia DO ~ Signed [facility] Work Phone: [phone]) 117-249605-13-2023 History and physical note Author Dr. Kiran [facility] April 10, 2023 5:36am Note Date/Time April 10, 2023 1:28a [facility] Medical Records Department [address] [place] [address] H&P Exam - Hospitalist 04/10/23 0128 MR#: [id number] Acct: [id number] Name: JOSEPH RINCON Rep #:[id number] : 1975 48 From: Young Kiran MD PCP: Milana Garcia DO Status:ADM I N Location: [place] [address] HPI - General General Date of Admission: [...] before presentation patient had multiple loose stools. [facility] Medical History Acute lumbar myofascial strain Anxiety [...] cranial nerves II through XII grossly intact. Cristin- Hallpike maneuver to the right was positive [...] 85.1 H, Lymph % (Auto) 11.3 L, Yates % (Auto) 1.6, Eos % (Auto) 0.4, [...] Lovenox ordered. Charges/Coding Visit Charges Inpatient E&M: 21192 Init Hosp L3 04/10/23 0536 <Electronically signed by Young Kiran MD> Cosigner Signature (if applicable): CC: Dr. Young Kiran MD; Milana Garcia DO~ Signed [facility] Work Phone: [phone] 666-184904-24-[address] Gaviria [facility] March 22, 2023 10:43pm Note Date/Time March 22, 2023 7:0 6pm [facility] Medical Records Department [address] [place] [address] Emergency Department Summary 03/22/23 MR#: [id number] Acct: [id number] Name: JOSEPH RINCON Rep #:[id number] : 1975 47 From: Lauri Gaviria MD PCP: Milana Garcia, Status:REG E R [...] Prior similar symptoms: No Recent Illness/Hospitalization: No PFSH PFSH Medical History Acute lumbar myofascial strain Anxiety [...] % (Auto) 64.4 Lymph % (Auto) 22.7 Yates % (Auto) 9.9 Eos % (Auto) 2.0 [...] Color Urine Clarity Urine pH Ur Specific [place] Urine Protein Urine Glucose (UA) Urine Ketones Urine Occult Blood Urine Nitrite Urine Bilirubin Urine Urobilinogen Ur Leukocyte Esterase Urine RBC Urine WBC Ur Squamous Epith Cells Amorphous Sediment Urine Bacteria Urine Mucus 03/22/23 20:20 WBC RBC Hgb Hct MCV MCH MCHC RDW Std Deviation RDW Coeff of Braxton Plt Count MPV Immature Gran % (Auto) Neut % (Auto) Lymph % (Auto) Yates % (Auto) Eos % (Auto) Baso % [...] Sl. Cloudy Urine pH 6.5 Ur Specific [place] 1.005 Urine Protein Negative Urine Glucose (UA) [...] (Rate is 68 and EKG is normal. OH interval is 130 ms. Cures duration 86 ms. QT duration 408 ms. Vickery is normal.) Treatment and Re-Evaluation :: Patient [...] Referrals: Milana Garcia, [Primary Care Provider] - 3-5 Days Activity [...] your Primary Care Provider. Call [facility] ([phone]) or report to the closest Emergency Room. Call 911 if necessary. 03/22/232242 <Electronically signed by Lauir Gaviria MD> Cosigner Signature (if applicable): CC: Milana Garcia DO ~ Signed [facility] Work Phone: [phone] Hospital Discharge instructions Additional Instructions Call your doctor in the morning to have repeat blood work in 3 to 5 days. Let them know that your creatinine is elevated.[facility] Work Phone: [phone]) 833-685410-09-2022 Hospital Discharge instructions Additional Instructions Plenty of fluids and rest. No alcohol for the next 48 hours. No driving for the next 24 hours. Follow-up with your primary care physician. They can get an EEG to further evaluate you for possible seizures. Your labs and CAT scan tonight were unremarkable other than your alcohol level that was 237.[facility] Work Phone: [phone] 640-267008-23-2022 Instructions* Patient Instructions* Samantha Deleon APRN.GRADUATE RN - 07/21/2022 7:38 PM EDT SCIATICA: Your [...] bladder or bowel control. [facility] History of Present illness Narrative* Sabrina Hairston, RT(R) - 07/21/2022 7:20 PM EDT Radiology [...] 21, 2022 7:16 PM documented in this encounterAs[facility] History of Present illness Narrative* Samantha Deleon, MABEL.GRADUATE RN - 07/21/2022 7:10 PM EDT This note was created using GoodDatariter. 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 The history is provided by the patient. No foreign language interpreter was used. Musculoskeletal Problem This is a [...] Flexeril Follow up with PCP Samantha Deleon APRN.GRADUATE RN documented in this encounterAs[facility]08-[facility] History of Past illness Narrative* Problem Noted [...] She eats once a day, Because sh e doesn't have an appetite. She eats regular [...] of this encounter (statuses as of 07/21/2022) [facility]. Alex Blum [facility] [place] [place] April 11, 2023 9:49am Note Date/Time April 11, 2023 9:39a [facility] Medical Records Department [address] [place] [address] Discharge Summary 04/11/23 0936 MR#: [id number] Acct: [id number] Name: JOSEPH RINCON Rep #:[id number] : 1975 48 From: Radha Johnson DO PCP: Milana Garcia DO Status:ADM I N Location: [place] [address] Providers Date of Admission: 04/10/23 Date of [...] Spent on Discharge: 37 Hospital Course: Ms Rincon a 48-year-old white female with a past [...] % (Auto) 67.1, Lymph % (Auto) 23.8, Yates % (Auto) 7.8, Eos % (Auto) 0.7, [...] Signed: Diana Floyd MD at 11:21 EDT , D/C Instructions Discharge Diet: Low fat [...] Self Care Charges/Coding Visit Charges Inpatient E&M: 44702 Disch Hosp >30min 04/11/23 0949 <Electronically signed by Radha Johnson DO> Cosigner Signature (if applicable): CC: Dr. Radha Johnson DO; Milana Garcia DO~ Signed [facility] Work Phone: Discharge summary Author Mao [facility]children[facility] Note Date/Time May 06, 2025 1:22p [facility] Medical Records Department [address] [place] [address] Instructions for Home/Discharge Instructions 05/06/25 1312 MR#: [id number] Acct: [id number] Name: JOSEPH RINCON Rep #:[id number] : 1975 50 From: Mao Becker DO PCP: Dr. Abisai Haley MD Status:ADM IN Discharge Instructions Diet Discharge Diet: 1800 Calorie Control Diet DC O2, CPAP, BIPAP needs Home O2 Discharge instructions: No Dressing / Incision Discharge Activity: Return to Normal Activity Weight Bearing Status: Full weight bearing Follow Up Care Test Results: Test results from this visit will be discussed in further detail at your follow- up appointment, if applicable. Discharge Plan Admission Admit Date/Time: 04/26/25 17:13 Primary Reason for Your Visit: PANCREATITIS Attending Provider: Mao Becker Primary Care Provider: Abisai Haley Consulting Providers: Julius Moncada; Canelo Myers Discharge Orders/Prescriptions Prescriptions: New glimepiride 4 mg tablet 4 mg PO DAILY Qty: 30 0RF Continued metformin 500 mg tablet 500 ea PO BID magnesium 250 mg tablet 250 mg PO DAILY cholecalciferol (vitamin D3) 50 mcg (2,000 unit) capsule 50 mcg PO DAILY albuterol sulfate 90 mcg/actuation HFA [...] mg PO TID PRN PRN (Reason: anxiety) budesonide-formoterol 160-4.5 mcg/actuation HFA aerosol inhaler 2 puff INHALATION BID atorvastatin 40 mg tablet 40 mg PO DAILY Qty: 30 6RF Discontinued omega-3 fatty acids 1,000 mg capsule 1,000 mg PO DAILY Referrals / Follow Up: Abisai Haley MD [Primary Care Provider] - See Referral Note (IN TWO WEEKS) Disposition Disposition (needs filled in before D/C Order can be placed): Home, Self Care 05/06/25 1322<Electronically signed by Mao Becker DO>Mao Becker DO CC: Dr. Julius Moncada MD; Dr. Abisai Haley MD; Dr. Canelo Myers MD ~ Signed [facility] Work Phone: Evaluation noteNo assessment information available [facility] Work Phone: Evaluation note* Diagnosis Hip pain, acute, left- Primary documented in this encounter [facility]* Diagnosis Onset Date Resolution Status Bilateral acute otitis media acute [facility] Work Phone: Evaluation note* Diagnosis Onset Date Resolution Status Acute lumbar myofascial strain acute Strain of left hip acute Acute bronchitis acute ACS (acute coronary syndrome) acute Hypertensive urgency acute Hypertriglyceridemia acute Non-ST elevated myocardial infarction acute Hypertension chronic Type 2 diabetes mellitus [facility] Work Phone: evaluation note* Diagnosis Onset Date Resolution Status Acute lumbar myofascial strain acute Strain of left hip acute Acute bronchitis acute ACS (acute coronary syndrome) acute Hypertensive urgency acute Hypertriglyceridemia acute Non-ST elevated myocardial infarction acute HTN (hypertension) chronic Type 2 diabetes mellitus [facility] Work Phone: Evaluation note* Diagnosis Onset Date Resolution Status Acute bronchitis acute [facility] Work Phone: evaluation note* Diagnosis Onset Date Resolution Status Acute bronchitis acute High anion gap metabolic acidosis acute Hypotension acute Lactic acidosis acute Vertigo acute Type 2 diabetes mellitus [facility] Work Phone: evaluation note* Diagnosis Onset Date Resolution Status Acute bronchitis acute High anion gap metabolic acidosis resolved Hypotension resolved Lactic acidosis resolved Vertigo resolved [facility] Work Phone: evaluation note* Diagnosis Onset Date Resolution Status Acute bronchitis acute High anion gap metabolic acidosis resolved Hypotension resolved Lactic acidosis resolved Vertigo resolved Hypertriglyceridemia acute Palpitations acute Syncope and collapse acute HTN (hypertension) chronic Tobacco use disorder [facility] Work Phone: evaluation note* Diagnosis Onset Date Resolution Status High anion gap metabolic acidosis resolved Hypotension resolved Lactic acidosis resolved Vertigo resolved Hypertriglyceridemia acute Palpitations acute Syncope and collapse acute HTN (hypertension) chronic Tobacco use disorder chronic Acute sinusitis acute [facility] Work Phone: Evaluation note* Diagnosis Onset Date Resolution Status Hypertriglyceridemia acute Palpitations acute Syncope and collapse acute HTN (hypertension) chronic Tobacco use disorder chronic Acute sinusitis acute [facility] Work Phone: evaluation note* Diagnosis Onset Date Resolution Status Hypertriglyceridemia acute Palpitations acute Syncope and collapse acute HTN (hypertension) chronic Tobacco use disorder chronic Acute sinusitis acute Hypertriglyceridemia acute Palpitations acute HTN (hypertension) chronic Tobacco use disorder [facility] Work Phone: Evaluation note* Diagnosis Onset Date Resolution Status Acute sinusitis acute Hypertriglyceridemia acute Palpitations acute HTN (hypertension) chronic Tobacco use disorder chronic Contact with or exposure to other viral diseases acute URI (upper respiratory infection) acute [facility] Work Phone: Evaluation note* Diagnosis Onset Date Resolution Status Plantar fasciitis of left foot acute Strain of left foot acute [facility] Work Phone: Evaluation note* Diagnosis Sinus congestion- Primary Other diseases of nasal cavity and sinuses Wheezing Nausea Nausea alone documented in this encounter [facility]* Diagnosis Insomnia- Primary Insomnia, unspecified MOUNIKA [...] pain, acute, left documented in this encounter [facility] Discharge instructions Additional Instructions Please follow-up with your PCP and pain management. Return for worsening of symptoms.[facility] Work Phone: Reason for referral (narrative)* Diagnostic Procedure Only (Urgent) - Pending Review Specialty Diagnoses / Procedures Referred By Becky t Referred To Contact XR IMAGING Diagnoses Hip pain, acute, left Procedures XR HIP GENERAL 3V PELV/AP/LAT LEFT RADEX HIP UNILATERAL WITH PELVIS 2-3 VIEWS Samantha Deleon APRN.GRADUATE RN [address] [place] [address] Xr Imaging Referral ID Status Reason Start Date Expiration Date Visits Requested Visits Authorized [id number] Pending Review Auto-Generat ed Referral 07/21/2022 08/20/2023 1 1 [facility] for referral (narrative)* Diagnostic Procedure Only (Urgent) - Closed Specialty Diagnoses / Procedures Referred By Contac t Referred To Contact XR IMAGING Diagnoses Hip pain, acute, left Procedures XR HIP GENERAL 3V PELV/AP/LAT LEFT RADEX HIP UNILATERAL WITH PELVIS 2-3 VIEWS Samantha Deleon APRN.GRADUATE RN [address] [place] [address] [place] [address] Referral ID Status Reason Start Date Expiration Date V isits Requested Visits Authorized [id number] Closed Auto-Generate d Referral 07/21/2022 08/20/2023 1 1 [facility] for referral (narrative)No reason for referral information [facility] Work Phone: Reason for visit Narrative* Diagnostic Procedure Only (Urgent) - Closed Specialty Diagnoses / Procedures Referred By Contac t Referred To Contact XR IMAGING Diagnoses Hip pain, acute, left Procedures XR HIP GENERAL 3V PELV/AP/LAT LEFT RADEX HIP UNILATERAL WITH PELVIS 2-3 VIEWS Samantha Deleon APRN.GRADUATE RN [address] [place] [address] [place] [address] Referral ID Status Reason Start Date Expiration Date V isits Requested Visits Authorized [id number] Closed Auto-Generate d Referral 07/21/2022 08/20/2023 1 1 [facility] Summary Purpose Family History No Family History Records Found Relationship Condition Age at Onset Recorded Date/T thien grandfather Cerebrovascular accident (CVA) Unknown Diabetes mellitus Unknown mother Malignant neoplasm Unknown father Hypertension Unknown grandmother Hypertension Unknown Advance Directives No Advanced Directives Records Found Advance Directive Response Recorded Date/ Time Advance Directives No February 23 8:55am Living Will No February 22, 2022 12:30pm Power of Timber Surveyor No February 22 12:30pm Advance Directive Response Recorded Date/ Time Advance Directives No February 23 8:55am Living Will No September 05 9:14pm Power of Timber Surveyor No September 05 9:14pm Advance Directive Response Recorded Date/ Time Advance Directives No February 23 7:55am Living Will No November 18 1:54pm Power of Timber Surveyor No November 18, 2022 1:54pm Advance Directive Response Recorded Date/ Time Advance Directives No February 23 7:55am Living Will No January 21 12:06pm Power of Timber Surveyor No January 21, 2023 12:06pm Advance Directive Response Recorded Date/ Time Advance Directives No February 23 8:55am Living Will No March 22, 2023 6:38pm Power of Timber Surveyor No March 22 6:38pm Advance Directive Response Recorded Date/ Time Advance Directives No February 23 8:55am Living Will No April 09, 2023 1 0:50pm Power of Timber Surveyor No April 09, 2023 10:50pm Advance Directive Response Recorded Date/ Time Advance Directives No February 23 8:55am Living Will No April 10, 2023 3 :53am Power of Timber Surveyor No April 10, 2023 3:53am Advance Directive Response Recorded Date/ Time Advance Directives No February 23 8:55am Living Will No May 04, 2023 9 :16pm Power of Timber Surveyor No May 04, 2023 9:16pm Advance Directive Response Recorded Date/ Time Advance Directives No February 23 8:55am Living Will No May 24, 2023 9:36pm Power of Timber Surveyor No May 24 9:36pm Advance Directive Response Recorded Date/ Time Advance Directives No February 23 8:55am Living Will No July 29 2:27pm Power of Timber Surveyor No July 29 023 2:27pm Advance Directive Response Recorded Date/ Time Advance Directives No February 23 8:55am Living Will No August 23, 2023 12:07pm Power of Timber Surveyor No July 12:07pm Advance Directive Response Recorded Date/ Time Advance Directives No February 23 021 7:55am Living Will No October 10 4:19pm Power of Timber Surveyor No October 10, 2023 4:19pm Advance Directive Response Recorded Date/ Time Advance Directives No February 23 8:55am Living Will No January 24 5:38pm Power of Timber Surveyor No January 24, 2024 5:38pm Advance Directive Response Recorded Date/ Time Do you have a Healthcare Power of Timber Surveyor? No April 04, 2025 11:50am Advance Directives No July 2:01pm Advance Directive Response Recorded Date/ Time Do you have a Healthcare Power of Timber Surveyor? No April 11, 2025 10:12pm Do you have a Healthcare Power of Timber Surveyor? No April 04, 2025 11:50am Advance Directives No July 2:01pm Advance Directive Response Recorded Date/ Time Do you have a Healthcare Power of Timber Surveyor? No April 11, 2025 10:12pm Do you have a Healthcare Power of Timber Surveyor? No April 04, 2025 11:50am Do you have a Healthcare Power of Timber Surveyor? No April 26, 2025 1:50pm Advance Directives No July 2:01pm Advance Directive Response Recorded Date/ Time Do you have a Healthcare Power of Timber Surveyor? No April 11, 2025 10:12pm Do you have a Healthcare Power of Timber Surveyor? No April 04, 2025 11:50am Do you have a Healthcare Power of Timber Surveyor? No April 26, 2025 6:15pm Advance Directives No July 2:01pm Chief Complaint [...] m Pancreatitis April 26, 2025 5:13p m Chief Complaint Admit Date PALPITATIONS April 04, 2025 10:24a m fall April 11, 2025 9:29p m ACUTE PANCREATITIS April 26, 2025 5:13p m ACUTE PANCREATITIS April 26, 2025 5:18p m ACUTE PANCREATITIS April 27, 2025 9:39a m ACUTE PANCREATITIS April 28, 2025 9:42a m ACUTE PANCREATITIS April 29, 2025 7:33a m ACUTE PANCREATITIS April 30, 2025 8:14a m ACUTE PANCREATITIS May 01, 2025 9:30a m ACUTE PANCREATITIS May 02, 2025 7:36a m ACUTE PANCREATITIS May 03, 2025 11:36 am ACUTE PANCREATITIS May 04, 2025 7:42a m Additional Source Comments <item> Privacy Markings (unrecogniz ed section and content) Section Author: Yenifer Bowman PROHIBITION ON REDISCLOSURE OF CONFIDENTIAL INFORMATION This notice accompanies a disclosure of information concerning a client made to you with the consent of such client. INFORMATION SOURCE (unrecogn ized section and content) DATE CREATED AUTHOR 06/16/2021 [facility] DATE CREATED AUTHOR AUTHOR'S ORGANIZ ATION 04/24/2024 [facility] DATE CREATED AUTHOR AUTHOR'S ORGANIZ ATION 05/18/2025 [facility] Goals (unrecognized section and content) Goals [...] this informatio n is protected by the [facility] Confidentiality of Alcohol and Drug Abuse Patient Records regulations: The Federal rules restrict any use of the information to criminally investigate or prosecute any alcohol or drug abuse patient.[facility] Center[facility] the event this information is protected by the Federal Confidentiality of Alcohol and Drug Abuse Patient Records regulations: The Federal rules restrict any use of the information to criminally investigate or prosecute any alcohol or drug abuse patient.[facility] Center[facility] the event this information is protected by the Federal Confidentiality of Alcohol and Drug Abuse Patient Records regulations: The Federal rules restrict any use of the information to criminally investigate or prosecute any alcohol or drug abuse patient.[facility] Reason for Visit (unrecogniz ed section and content) Reason Comments left hip pain X 3 days-cannot reca ll an injury Reason Comments Sinus Problem Nasal congestion, dr garland slight sore throat, nausea, cough, wheezing x 1 day Care Teams (unrecognized sec tion and content) Emergency Medicine Medical Director Relationship Specialty Start Date End Date Ihsan [...] Primary Care Provider, Referring Provider Active Cassandra Patel PA, PA Attending Provider Active Team Status: Active [...] Status: Active Member Role Status Dates Milana M Jose , DO Primary Care Provider Active Dr. [...] , DO Primary Care Provider Active Dr. Jose Taylor MD Attending Provider Active Dr. Young Kiran MD Referring Provider Active Team Status: Inactive Member Role Status Dates Milana Garcia DO Primary Care Provider Active Dr. David Drew MD Attending Provider, Referring Prov ider Active Team Status: Inactive Member Role Status Dates Milana Garcia DO Primary Care Provider Active Dr. John Dyer , DO Emergency Provider Active Team Status: Inactive Member Role Status Dates Milana Garcia , DO Primary Care Provider, Referring Provider Active Jim Manriquez [employer] CERTIFIED NETWORK ASSOCIATE, [employer] CERTIFIED NETWORK ASSOCIATE-C Attending Provider Active Team Status: Inactive Member Role Status Giovanna Garcia DO Primary Care Provider Active Dr. John Dyer , DO Attending Provider, Emergency Provider Active Team Status: Inactive Member Role Status Dates Milana Garcia , DO Primary Care Provider, Attending Provider Active Team Status: Inactive Member Role Status Giovanna Garcia DO Primary Care Provider Active Dr. Caprice Jerry MD Emergency Provider Active Team Status: Inactive Member Role Status Dates Milana Garcia , DO Primary Care Provider Active Dr. Caprice Jerry MD Attending Provider, Emergency Provider Active Team Status: Active Member Role Status Dates Milana Garcia DO Primary Care Provider Active Jim Manriquez [employer] CERTIFIED NETWORK ASSOCIATE, [employer] CERTIFIED NETWORK ASSOCIATE-C Attending Provider, Referring P roevert Active Team Status: Inactive Member Role Status Dates Milana Garcia , DO Primary Care Provi elena, Attending Provider, Referring Provider Active Team Status: Inactive Member Role Status Dates Milana Garcia , Primary Care Provider Active Rober Concepcion MD Emergency Provider Active Team Status: Inactive Member Role Status Dates Milana Garcia , DO Primary Care Provider Active Rober Concepcion MD Attending Provider, Emergency Provid er Active Team Status: Inactive Member Role Status Dates Milana Garcia , Primary Care Provider Active Dr. Julio Wesley MD Attending Provider, Referring Provider Active Jim Manriquez [employer], [employer]-C Other Provider Active Team Status: Inactive Member Role Status Dates Milana Garcia , Primary Care Provider, Referring Provider Active Daniel Mendoza PA, PA Attending Provider Active Team Status: Inactive Member Role Status Dates Milana Garcia DO Primary Care Provider Active Dr. Julio Wesley MD Attending Provider, Referring Provider Active Team Status: Inactive Member Role Status Dates Milana Garcia , Primary Care Provider Active Dr. Jose Taylor MD Attending Provider Active Emergency Medicine Medical Director Relationship Specialty Start Date End Date LaurenIhsanDO PCP - General Family Medicine 10/22/20 Emergency Medicine Medical Director Relationship Specialty Start Date End Date Lauren Ihsan YarbroughDO PCP - General Family Medicine 10/22/20 Team [...] 2025 Team Status: Active Member Role Status Giovanna Haley MD Primary Care Provider Active St art: April 26, 2025 Dr. Humphrey Garcia DO Referring Provider Active Start: April 26, 2025 Dr. Humphrey Garcia DO Emergency Provider Active Start: April 26, 2025 Dr. Julius Moncada MD Admit Provider Active St art: April 26, 2025 Dr. Julius Moncada MD Attending Provider Active Start: April 26, 2025 Team Status: Inactive Member Role Status Giovanna Haley MD Primary Care Provider Active St art: April 26, 2025 End: May 06, 2025 Dr. Humphrey Garcia DO Referring Provider Active Start: April 26, 2025 End: May 06, 2025 Dr. Humphrey Garcia DO Emergency Provider Active Start: April 26, 2025 End: May 06, 2025 Dr. Julius Moncada MD Admit Provider Active St art: April 26, 2025 End: May 06, 2025 Dr. Julius Moncada MD Other Provider Active St art: April 26, 2025 End: May 06, 2025 Dr. Mao Becker DO Attending Provider Active Start: April 26, 2025 End: May 06, 2025 Dr. Canelo Myers MD Other Provider Active Star t: April 26, 2025 End: May 06, 2025 Team Status: Active Member Role Status Giovanna Haley MD Primary Care Provider Active St art: April 26, 2025 Dr. Humphrey Garcia DO Emergency Provider Active Start: April 26, 2025 Dr. Julius Moncada MD Admit Provider Active St art: April 26, 2025 Dr. Julius Moncada MD Attending Provider Active Start: April 26, 2025 Dr. Julius Moncada MD Other Provider Active St art: April 26, 2025 Team Status: Active Member Role Status Giovanna Haley MD Primary Care Provider Active St art: April 27, 2025 Dr. Humphrey Garcia DO Emergency Provider Active Start: April 27, 2025 Dr. Julius Moncada MD Admit Provider Active St art: April 27, 2025 Dr. Julius Moncada MD Other Provider Active St art: April 27, 2025 Dr. Canelo Myers MD Attending Provider Active Start: April 27, 2025 Dr. Canelo Myers MD Other Provider Active Star t: April 27, 2025 Team Status: Active Member Role Status Giovanna Haley MD Primary Care Provider Active St art: April 28, 2025 Dr. Humphrey Garcia DO Emergency Provider Active Start: April 28, 2025 Dr. Julius Moncada MD Admit Provider Active St art: April 28, 2025 Dr. Julius Moncada MD Other Provider Active St art: April 28, 2025 Dr. Canelo Myers MD Attending Provider Active Start: April 28, 2025 Dr. Canelo Myers MD Other Provider Active Star t: April 28, 2025 Team Status: Active Member Role Status Giovanna Haley MD Primary Care Provider Active St art: April 29, 2025 Dr. Humphrey Garcia DO Referring Provider Active Start: April 29, 2025 Dr. Humphrey Garcia DO Emergency Provider Active Start: April 29, 2025 Dr. Julius Moncada MD Admit Provider Active St art: April 29, 2025 Dr. Julius Moncada MD Other Provider Active St art: April 29, 2025 Dr. Canelo Myers MD Attending Provider Active Start: April 29, 2025 Dr. Canelo Myers MD Other Provider Active Star t: April 29, 2025 Team Status: Active Member Role Status Giovanna Haley MD Primary Care Provider Active St art: April 30, 2025 Dr. Humphrey Garcia DO Referring Provider Active Start: April 30, 2025 Dr. Humphrey Garcia DO Emergency Provider Active Start: April 30, 2025 Dr. Julius Moncada MD Admit Provider Active St art: April 30, 2025 Dr. Julius Moncada MD Other Provider Active St art: April 30, 2025 Dr. Canelo Myers MD Attending Provider Active Start: April 30, 2025 Dr. Canelo Myers MD Other Provider Active Star t: April 30, 2025 Team Status: Active Member Role Status Dates Abisai Haley MD Primary Care Provider Active St art: May 01, 2025 Dr. Humphrey Garcia DO Referring Provider Active Start: May 01, 2025 Dr. Humphrey Garcia DO Emergency Provider Active Start: May 01, 2025 Dr. Julius Moncada MD Admit Provider Active St art: May 01, 2025 Dr. Julius Moncada MD Other Provider Active St art: May 01, 2025 Dr. Canelo Myers MD Attending Provider Active Start: May 01, 2025 Dr. Canelo Myers MD Other Provider Active Star t: May 01, 2025 Team Status: Active Member Role Status Dates Abisai Haley MD Primary Care Provider Active St art: May 02, 2025 Dr. Humphrey Garcia DO Referring Provider Active Start: May 02, 2025 Dr. Humphrey Garcia DO Emergency Provider Active Start: May 02, 2025 Dr. Julius Moncada MD Admit Provider Active St art: May 02, 2025 Dr. Julius Moncada MD Other Provider Active St art: May 02, 2025 Dr. Canelo Myers MD Attending Provider Active Start: May 02, 2025 Dr. Canelo Myers MD Other Provider Active Star t: May 02, 2025 Team Status: Active Member Role Status Dates Abisai Haley MD Primary Care Provider Active St art: May 03, 2025 Dr. Humphrey Garcia DO Referring Provider Active Start: May 03, 2025 Dr. Humphrey Garcia DO Emergency Provider Active Start: May 03, 2025 Dr. Julius Moncada MD Admit Provider Active St art: May 03, 2025 Dr. Julius Moncada MD Other Provider Active St art: May 03, 2025 Dr. Canelo Myers MD Attending Provider Active Start: May 03, 2025 Dr. Canelo Myers MD Other Provider Active Star t: May 03, 2025 Team Status: Active Member Role Status Dates Abisai Haley MD Primary Care Provider Active St art: May 04, 2025 Dr. Humphrey Garcia DO Referring Provider Active Start: May 04, 2025 Dr. Humphrey Garcia DO Emergency Provider Active Start: May 04, 2025 Dr. Julius Moncada MD Admit Provider Active St art: May 04, 2025 Dr. Julius Moncada MD Other Provider Active St art: May 04, 2025 Dr. Canelo Myers MD Attending Provider Active Start: May 04, 2025 Dr. Canelo Myers MD Other Provider Active Star t: May 04, 2025 FOR RECORDS PERTAINING TO PATIENTS WHO [...] BE BASED ON THE PRIMARY CLINICAL RECORDS. [facility] [employer] provides no warranty or guarantee of the accuracy or completeness of information in this document.
[2025-05-25 00:47] LABS: Internal QC Validated? YES +Cl - CLEAR BKGD; Pregnancy, Serum, hCG Quali. NEGATIVE Negative; Record Kit Lot#, Serum Preg. 947241
[2025-05-25] MEDS: Lorazepam 2 MG/ML WCH Syringe 1 MG IV (00:52)
[2025-05-25] MEDS: Ondansetron 4 MG/2 ML Vial IV (00:52)
[2025-05-25] MEDS: 0.9% Normal Saline (1000mL) 1,000 ML 999 ML IV (00:53)
[2025-05-25 00:58] LABS: Amphetamine Urine NEGATIVE (<1000 ng/mL); Barbiturate Urine PRESUMPTIVE POSITIVE (< 200 ng/mL); Benzodiazepine Urine PRESUMPTIVE POSITIVE (< 200 ng/mL); Buprenorphine Urine NEGATIVE (< 200 ng/mL); Cocaine Urine NEGATIVE (< 300 ng/mL); Fentanyl, Urine NEGATIVE; Methadone Urine NEGATIVE (< 300 ng/mL); Opiates Urine NEGATIVE (< 300 ng/mL); Oxycodone, Urine NEGATIVE (< 100 ng/mL); PCP Urine NEGATIVE (< 25 ng/mL); THC Urine NEGATIVE (< 50 ng/mL)
--- NOTE | 2025-05-25 00:58 | ED.RN ---
mother is taking PT phone, shirt and bra home with her
[2025-05-25 00:59] LABS: ALB/GLOB Ratio 1.2 RATIO (0.9-2.4); AST(SGOT) 45 U/L (<=31); Alanine Aminotransfer ALT/SGPT 29 U/L (<=34); Albumin, Serum 4.1 g/dL (3.5-5.0); Alkaline Phosphatase 115 U/L (35-104); Anion Gap 21 (5-15); BUN 8 mg/dL (4-19); BUN/Creat Ratio 11.4 RATIO (10-20); Calcium,Total 8.7 mg/dL (7.6-11.0); Carbon Dioxide 20.9 mmol/L (21.0-32.0); Chloride 98 mmol/L (98-108); Creatinine, Serum 0.72 mg/dL (0.70-1.20); EST Glomerular Filtration Rate 104 (>60); Estimated Creatinine Clearance 82.51 ml/min (50-250); Globulin 3.4 g/dL (2.2-4.2); Glucose 84 mg/dL (70-99); Potassium 4.1 mmol/L (3.3-5.1); Protein, Total 7.5 g/dL (5.9-8.4); Sodium Level 140 mmol/L (133-145); Total Bilirubin 0.37 mg/dL (0.00-1.30)
[2025-05-25 01:02] LABS: Bacteria 0 SEEN /hpf (None Seen); Mucous, Urine 0 SEEN /hpf (<or=2+)
[2025-05-25 01:19] LABS: Magnesium 1.1 mg/dL (1.5-2.2); Phosphorus 4.5 mg/dL (2.7-4.5)
[2025-05-25 01:22] LABS: Color, Urine Yellow (Yellow); Glucose, Dipstick Normal (Normal); Ketone-Dipstick 5 mg/dl (Negative); Leukocyte Esterase-Dipstick 25 /ul (Negative); Nitrite-Dipstick Negative (Negative); Occult Blood-Urine 10 /ul (Negative); Protein-Dipstick 30 mg/dl (Negative); Specific Gravity, Urine 1.015 (1.002-1.030); Urine Bilirubin Dipstick Negative (Negative); Urine Clarity Clear (Clear); Urine Urobilinogen Normal (Normal)
[2025-05-25 01:36] LABS: Red Blood Cells-Urine 0-5 SEEN /hpf (0-5); Squamous Epithelial Cells - UA 5-10 SEEN /hpf (5-10); White Blood Cells 0-5 SEEN /hpf (0-5)
--- OUTSIDE RECORDS SUMMARY | 2025-05-25 02:16 | XMS RPT_ITS | CCD ---
Author Organization [facility] Care Team Providers Care Hairspring Inspector Name Role Phone Required, No Pcp Unavailable Unavailable Noe Engel Unavailable Ihsan Aguilar DO Primary Care Provider Calvin Waldrop Primary Care Provider Unavailabl e Calvin Waldrop Referring Provider Unavailable LUIS Youssef Attending Provider Dr. Calvin aWldrop Primary Care Provider Dr. Calvin Waldrop Referring [...] Provider Dr. Young Kiran Referring Provider Ganesh PRODUCTION SUPERVISOR TRAINEE, PRODUCTION SUPERVISOR TRAINEE-C Jim Attending Provider Jose, DO Milana M Primary Care Provider Jose, DO Milana M Referring Provider LUIS Rosario Attending Provider Jose, DO Milana M Primary Care Provider Jose, DO Milana M Primary Care Provider Jose, DO Milana M Referring Provider LUIS Rosario Attending Provider Ganesh PRODUCTION SUPERVISOR TRAINEE, PRODUCTION SUPERVISOR TRAINEE-C Jim Attending Provider LUIS Gramajo Attending Provider [...] Provider Dr. Humphrey Garcia DO Emergency Provider Antwan LEBLANC, Dr. [place] Admit Provider Ha Hannah MD, Dr. [place] Attending Provider Dashawn Moncada MD, Dr. [place] Other Provider Unavailab rob Becker DO, Dr. Cavanaugh Attending Provider Lucia LEBLANC, Dr. Lemos Other Provider Unavailable [...] Drug Class(es) Dates Sig (Normalized) Sig (Original) [id number] 200 actuat albuterol 0.09 mg/actuat metered dose [...] TABLET PO DAILY February 22, 2022 12:47pm [place]-3 Fatty Acids (3 sources) Start: 3 take 1000 mg by mouth once daily [place]-3 Fatty Acids Active 1000 MG PO DAILY August 24, 2023 11:00pm Start: 08-25-2023 take 1000 mg by mouth once colleen ly [place]-3 Fatty Acids Active 1000 MG PO DAILY [...] 20 mg/ml oral solution (10 sources) Uncompetitive V-vywqew-H-aspartat e Receptor Antagonist, Sigma-1 Agonist Start: 07-01-2023 [...] 17, 2023 12:00am February 18, 2023 12:05am [place]-3 Fatty Acids 1,000 mg capsule (4 sources) Start: 08-25-2023 End: 05-06-2025 take 1 capsule by mouth once daily [place]-3 Fatty Acids 1,000 mg capsule Discontinued 1000 mg PO DAILY August 25, 2023 12:00am May 06, 2025 1:18pm Start: 08-25-2023 take 1 capsule by mo [facility] once daily [place]-3 Fatty Acids 1,000 mg capsule Active 1000 [...] Comment on above: Take 1 tablet by [facility] every 6 hours as needed for [...] 05-06-2025 FINGERSTICK GLU 358 mg/dL High 74-106 [facility] Comment on above: Result Comment: CHAUNCEY RIZO OF PATIENT CARE PER NURSING PROTOCOL Performed By: #### L 501.080 ####[facility] [address] [place], [address] FINGERSTICK GLU 219 mg/dL High 74-106 [facility] Comment on above: Result Comment: CHAUNCEY GEMENT OF PATIENT CARE PER NURSING PROTOCOL Performed By: #### L 501.080 ####[facility] [address] [place], [address] Discharge Instructionon 06-0 Discharge Instruction Normal [facility] Glucose measurement at [facility] deOrdered By: Mao Becker on 05-06-2025 Glucose [Mass/Vol] 358 mg/dL High 74-106 [facility] Comment on above: MANAGEMENT OF PATIEN T CARE PER NURSING PROTOCOL Bedside Glucoseon 05-05-2025 FINGERSTICK GLU 331 mg/dL High -106 [facility] Comment on above: Result Comment: CHAUNCEY GEMENT OF PATIENT CARE PER NURSING PROTOCOL Performed By: #### L 501.080 ####[facility] [address] [place], [address] FINGERSTICK GLU 257 mg/dL High 74-106 [facility] Comment on above: Result Comment: CHAUNCEY GEMENT OF PATIENT CARE PER NURSING PROTOCOL Performed By: #### L 501.080 ####[facility] [address] [place], [address] FINGERSTICK GLU 346 mg/dL High -[address] [place] [address] Comment on above: Result Comment: CHAUNCEY GEMENT OF PATIENT CARE PER NURSING PROTOCOL Performed By: #### L 501.080 ####[facility] [address] [place], [address] FINGERSTICK GLU 221 mg/dL High -106 [facility] Comment on above: Result Comment: CHAUNCEY GEMENT OF PATIENT CARE PER NURSING PROTOCOL Performed By: #### L 501.080 ####[facility] [address] [place], [address] Absolute lymphocyte countOrd ered By: Canelo Myers on 06-06-2025 Lymphocytes Auto (Unsp spec) [#/Vol] 1.36 10*3/uL 0.83-4.51 [facility] Absolute neutrophil countOrd ered By: Canelo Myers on 05-04-2025 Neutrophils (Bld) [#/Vol] 3.4 10*3/uL 2.0-7.7 [facility] Anion gap in Serum or Plasma Ordered By: Canelo Myers on 05-04-2025 Anion gap [Moles/Vol] 11 mmol/L 5-15 [facility] Automated lymphocyte count a s percentage of total leukocytesOrdered By: Canelo Myers on 05-04-2025 Lymphocytes/100 WBC Auto (Unsp spec) 23.0 % 19-41 [facility] BUN/creatinine ratioOrdered By: Canelo Myers on 05-04-2025 Urea nitrogen/Creatinine [Mass ratio] 9.6 mg/mg Low 10-20 [facility] Basophil percentageOrdered B y: Canelo Myers on 05-04-2025 Basophils/100 WBC (Bld) 0.5 % 0-1 [facility] Bedside Glucoseon 05-04-2025 FINGERSTICK GLU 299 mg/dL High 74-[address] [place] [address] Comment on above: Result Comment: CHAUNCEY GEMENT OF PATIENT CARE PER NURSING PROTOCOL Performed By: #### L 501.080 ####[facility] [address] [facility] [place] [address] FINGERSTICK GLU 299 mg/dL High [address] [place] [address] Comment on above: Result Comment: CHAUNCEY GEMENT OF PATIENT CARE PER NURSING PROTOCOL Performed By: #### L 501.080 ####[facility] [address] [facility] [place] [address] FINGERSTICK GLU 245 mg/dL High [address] [place] [address] Comment on above: Result Comment: CHAUNCEY GEMENT OF PATIENT CARE PER NURSING PROTOCOL Performed By: #### L 501.080 ####[facility] [address] [place], [address] FINGERSTICK GLU 170 mg/dL High [address] [place] [address] Comment on above: Result Comment: CHAUNCEY GEMENT OF PATIENT CARE PER NURSING PROTOCOL Performed By: #### L 501.080 ####[facility] [address] [place], [address] Bilirubin, totalOrdered By: Canelo Myers on 05-04-2025 Bilirubin [Mass/Vol] 0.35 mg/dL 0.00-1.30 [facility] CBC W/Diff, Automatedon Absolute Lymph 1.36 X10 3/uL Normal 0.83-4.51 [facility] Comment on above: Performed By: #### L 100.0100, L500.4050 ####[facility] [address] [place], [address] Absolute Neut 3.4 X10 3/uL Normal 2.0-7.7 [facility] Comment on above: Performed By: #### L 100.0100, L500.4050 ####[facility] [address] [place], [address] Basophils/100 WBC (Bld) 0.5 % Normal 0-1 [facility] Comment on above: Performed By: #### L 100.0100, L500.4050 ####[facility] [address] [place], [address] Eosinophils/100 WBC (Bld) 2.7 % Normal 0-5 [facility] Comment on above: Performed By: #### L 100.0100, L500.4050 ####[facility] [address] [place], [address] Erythrocyte distribution width (RBC) [Ratio] 12.8 % Normal 11.6-14.6 [facility] Comment on above: Performed By: #### L 100.0100, L500.4050 ####[facility] [address] [place], [address] Hematocrit (Bld) [Volume fraction] 30.6 % Low 37-47 [facility] Comment on above: Performed By: #### L 100.0100, L500.4050 ####[facility] [address] [place], [address] Hemoglobin (Bld) [Mass/Vol] 10.3 g/dL Low 12.0-15.0 [facility] Comment on above: Performed By: #### L 100.0100, L500.4050 ####[facility] [address] [place], [address] IG% 0.300 Normal 0.0-0.9 [facility] Comment on above: Result Comment: IG% - Immature Granulocytes (promyelocytes, myelocytes andmetamyelocytes) > 1% indicates that a LEFT SHIFT is Present. Performed By: #### L 100.0100, L500.4050 ####[facility] [address] [place], [address] Lymphocytes/100 WBC (Bld) 23.0 % Normal 19-41 [facility] Comment on above: Performed By: #### L 100.0100, L500.4050 ####[facility] [address] [place], [address] MCH (RBC) [Entitic mass] 35.8 pg High 27.0-32.0 [facility] Comment on above: Performed By: #### L 100.0100, L500.4050 ####[facility] [address] [place], [address] MCHC (RBC) [Mass/Vol] 33.7 g/dL Normal 32-36 [facility] Comment on above: Performed By: #### L 100.0100, L500.4050 ####[facility] [address] [place], [address] MCV (RBC) [Entitic vol] 106.3 fL High 81-99 [facility] Comment on above: Performed By: #### L 100.0100, L500.4050 ####[facility] [address] [place], [address] Monocytes/100 WBC (Bld) 15.4 % High 0-10 [facility] Comment on above: Performed By: #### L 100.0100, L500.4050 ####[facility] [address] [place], [address] Neutrophils/100 WBC (Bld) 58.1 % Normal 47-70 [facility] Comment on above: Performed By: #### L 100.0100, L500.4050 ####[facility] [address] [place], [address] Nucleated RBC (Bld) [#/Vol] 0 10*3/uL Normal 0-5 [facility] Comment on above: Performed By: #### L 100.0100, L500.4050 ####[facility] [address] [place], [address] Platelet mean volume (Bld) [Entitic vol] 10.3 fL Normal 6.2-12.0 [facility] Comment on above: Performed By: #### L 100.0100, L500.4050 ####[facility] [address] [place], [address] Platelets (Bld) [#/Vol] 376 10*3/uL Normal 150-450 [facility] Comment on above: Performed By: #### L 100.0100, L500.4050 ####[facility] [address] [place], [address] RBC (Bld) [#/Vol] 2.88 10*6/uL Low 4.2-5.4 [facility] Comment on above: Performed By: #### L 100.0100, L500.4050 ####[facility] [address] [place], [address] RDW SD 49.9 fl High 35.1-43.9 [facility] Comment on above: Performed By: #### L 100.0100, L500.4050 ####[facility] [address] [place], [address] WBC (Bld) [#/Vol] 5.9 10*3/uL Normal 4.4-11.0 [facility] Comment on above: Performed By: #### L 100.0100, L500.4050 ####[facility] [address] [place], [address] Carbon dioxide, total [Moles /volume] in Central venous bloodOrdered By: Canelo Myers on 05-04-2025 CO2 [Moles/Vol] 27.3 mmol/L 21.0-32.0 [facility] Chloride assayOrdered By: Henrry Myers on 05-04-2025 Chloride [Moles/Vol] 96 mmol/L Low 98-108 [facility] Comprehensive Metabolic Prof ilon 05-04-2025 Albumin [Mass/Vol] 3.4 g/dL Low 3.5-5.0 [facility] Comment on above: Performed By: #### L 100.0100, L500.4050 ####[facility] [address] [place], [address] Albumin/Globulin [Mass ratio] 1.1 {ratio} Normal 0.9-2.4 [facility] Comment on above: Performed By: #### L 100.0100, L500.4050 ####[facility] [address] [place], [address] ALK PHOS 441 U/L High 35-104 [facility] Comment on above: Performed By: #### L 100.0100, L500.4050 ####[facility] [address] [place], [address] ALT [Catalytic activity/Vol] 45 U/L High <=34 [facility] Comment on above: Performed By: #### L 100.0100, L500.4050 ####[facility] [address] [place], [address] AST [Catalytic activity/Vol] 51 U/L High <=31 [facility] Comment on above: Performed By: #### L 100.0100, L500.4050 ####[facility] [address] [place], [address] Bilirubin [Mass/Vol] 0.35 mg/dL Normal 0.00-1.30 [facility] Comment on above: Performed By: #### L 100.0100, L500.4050 ####[facility] [address] [place], [address] BUN/CRE 9.6 RATIO Low 10-20 [facility] Comment on above: Performed By: #### L 100.0100, L500.4050 ####[facility] [address] [place], [address] Calcium [Mass/Vol] 9.3 mg/dL Normal 7.6-11.0 [facility] Comment on above: Performed By: #### L 100.0100, L500.4050 ####[facility] [address] [place], [address] Chloride [Moles/Vol] 96 mmol/L Low 98-108 [facility] Comment on above: Performed By: #### L 100.0100, L500.4050 ####[facility] [address] [place], [address] CO2 [Moles/Vol] 27.3 mmol/L Normal 21.0-32.0 [facility] Comment on above: Performed By: #### L 100.0100, L500.4050 ####[facility] [address] [place], [address] Creatinine [Mass/Vol] 0.63 mg/dL Low 0.70-1.20 [facility] Comment on above: Performed By: #### L 100.0100, L500.4050 ####[facility] [address] [place], [address] ECRCL 94.30 ml/min Normal 50-250 [facility] Comment on above: Performed By: #### L 100.0100, L500.4050 ####[facility] [address] [place], [address] GAP 11 Normal 5-15 [facility] Comment on above: Performed By: #### L 100.0100, L500.4050 ####[facility] [address] [place], [address] GFR/1.73 sq M.predicted among non-blacks MDRD (S/P/Bld) [Vol rate/Area] 109 mL/min/{1.73_m2} Normal >60 [facility] Comment on above: Result Comment: mL/m in/1.73m2 CKD-EPI Creatinine Equation (2020) Performed By: #### L 100.0100, L500.4050 ####[facility] [address] [place], [address] Globulin (S) [Mass/Vol] 2.9 g/dL Normal 2.2-4.2 [facility] Comment on above: Performed By: #### L 100.0100, L500.4050 ####[facility] [address] [place], [address] Glucose [Mass/Vol] 171 mg/dL High 70-99 [facility] Comment on above: Performed By: #### L 100.0100, L500.4050 ####[facility] [address] [place], [address] Potassium [Moles/Vol] 4.7 mmol/L Normal 3.3-5.1 [facility] Comment on above: Performed By: #### L 100.0100, L500.4050 ####[facility] [address] [place], [address] Sodium [Moles/Vol] 134 mmol/L Normal 133-145 [facility] Comment on above: Performed By: #### L 100.0100, L500.4050 ####[facility] [address] [place], [address] T PROT 6.3 g/dL Normal 5.9-8.4 [facility] Comment on above: Performed By: #### L 100.0100, L500.4050 ####[facility] [address] [place], [address] Urea nitrogen [Mass/Vol] 6 mg/dL Normal 4-19 [facility] Comment on above: Performed By: #### L 100.0100, L500.4050 ####[facility] [address] [place], [address] Eosinophil percentageOrdered By: Canelo Myers on 05-04-2025 Eosinophils/100 WBC (Bld) 2.7 % 0-5 [facility] Erythrocyte distribution wid th ratioOrdered By: Canelo Myers on 05-04-2025 Erythrocyte distribution width (RBC) [Ratio] 12.8 % 11.6-14.6 [facility] Erythrocyte distribution wid th standard deviationOrdered By: Canelo Myers on 05-04-2025 Erythrocyte distribution width (RBC) [Ratio] 49.9 fl High 35.1-43.9 [facility] Glomerular filtration rate ( GFR) estimation/1.73 sq m using serum, plasma, or whole bOrdered By: Canelo Myers on 05-04-2025 GFR/1.73 sq M.predicted among non-blacks MDRD (S/P/Bld) [Vol rate/Area] 109 mL/min/{1.73_m2} >60 [facility] Comment on above: mL/min/1.73m2 CKD-EP I Creatinine Equation (2020) Hematocrit Auto (Bld) [Volum e fraction]Ordered By: Canelo Myers on 05-04-2025 Hematocrit (Bld) [Volume fraction] 30.6 % Low 37-47 [facility] Hemoglobin measurementOrdere d By: Canelo Myers on 05-04-2025 Hemoglobin (Bld) [Mass/Vol] 10.3 g/dL Low 12.0-15.0 [facility] Immature granulocytes/100 WB C Auto (Bld)Ordered By: Canelo Myers on 05-04-2025 Immature granulocytes/100 WBC (Bld) 0.300 % 0.0-0.9 [facility] Comment on above: IG% - Immature Granu locytes (promyelocytes, myelocytes and metamyelocytes) > 1% indicates that a LEFT SHIFT is Present. Laboratory - Chemistry and C hemistry - challengeOrdered By: Canelo Myers on 05-04-2025 AST [Catalytic activity/Vol] 51 U/L High <32 [facility] MCV (mean corpuscular volume ) determinationOrdered By: Canelo Myers on 05-04-2025 MCV (RBC) [Entitic vol] 106.3 fL High 81-99 [facility] Mean corpuscular hemoglobin (MCH) determinationOrdered By: Canelo Myers on 05-04-2025 MCH (RBC) [Entitic mass] 35.8 pg High 27.0-32.0 [facility] Mean corpuscular hemoglobin concentration (MCHC) determinationOrdered By: Canelo Myers on 05-04-2025 MCHC (RBC) [Mass/Vol] 33.7 g/dL 32-36 [facility] Mean platelet volume determi nationOrdered By: Canelo Myers on 05-04-2025 Platelet mean volume (Bld) [Entitic vol] 10.3 fL 6.2-12.0 [facility] Monocyte percentageOrdered B y: Canelo Myers on 05-04-2025 Monocytes/100 WBC (Bld) 15.4 % High 0-10 [facility] Neutrophil percentageOrdered By: Canelo Myers on 06-06-2025 Neutrophils/100 WBC (Bld) 58.1 % 47-70 [facility] Nucleated red blood cell per centageOrdered By: Canelo Myers on 05-04-2025 Nucleated RBC/100 WBC (Bld) [Ratio] 0 % 0-5 [facility] Platelet countOrdered By: Henrry Myers on 05-04-2025 Platelets (Bld) [#/Vol] 376 10*3/uL 150-450 [facility] Potassium measurement (mass/ volume)Ordered By: Canelo Myers on 05-04-2025 Potassium (Unsp spec) [Mass/Vol] 4.7 mmol/L 3.3-5.1 [facility] RBC Auto (Bld) [#/Vol]Ordere d By: Canelo Myers on 05-04-2025 RBC (Bld) [#/Vol] 2.88 10*6/uL Low 4.2-5.4 [facility] Serum creatinine measurement (mass/volume)Ordered By: Canelo Myers on 05-04-2025 Creatinine [Mass/Vol] 0.63 mg/dL Low 0.70-1.20 [facility] Serum globulin measurementOr dered By: Canelo Myers on 05-04-2025 Globulin (S) [Mass/Vol] 2.9 g/dL 2.2-4.2 [facility] Serum glucose measurement (m ass/volume)Ordered By: Canelo Myers on 05-04-2025 Glucose [Mass/Vol] 171 mg/dL High 70-99 [facility] Serum or plasma alanine wilkerson otransferase (ALT) measurementOrdered By: Canelo Myers on 05-04-2025 ALT [Catalytic activity/Vol] 45 U/L High <35 [facility] Serum or plasma albumin alphonso urement (mass/volume)Ordered By: Canelo Myers on 05-04-2025 Albumin [Mass/Vol] 3.4 g/dL Low 3.5-5.0 [facility] Serum or plasma albumin/glob ulin mass ratioOrdered By: Canelo Myers on 05-04-2025 Albumin/Globulin [Mass ratio] 1.1 {ratio} 0.9-2.4 [facility] Serum or plasma alkaline trinity sphatase measurementOrdered By: Canelo Myers on 05-04-2025 ALP [Catalytic activity/Vol] 441 U/L High 35-104 [facility] Serum or plasma calcium alphonso urement (mass/volume)Ordered By: Canelo Myers on 05-04-2025 Calcium [Mass/Vol] 9.3 mg/dL 7.6-11.0 [facility] Serum or plasma urea nitroge n measurement (mass/volume)Ordered By: Canelo Myers on 05-04-2025 Urea nitrogen [Mass/Vol] 6 mg/dL 4-19 [facility] Sodium levelOrdered By: Ganesh Myers on 05-04-2025 Sodium [Moles/Vol] 134 mmol/L 133-145 [facility] Total proteinOrdered By: Guido Myers on 05-04-2025 Protein [Mass/Vol] 6.3 g/dL 5.9-8.4 [facility] White blood cell (WBC) count Ordered By: Canelo Myers on 05-04-2025 WBC (Bld) [#/Vol] 5.9 10*3/uL 4.4-11.0 [facility] Bedside Glucoseon 05-03-2025 FINGERSTICK GLU 230 mg/dL High 74-106 [facility] Comment on above: Result Comment: CHAUNCEY GEMENT OF PATIENT CARE PER NURSING PROTOCOL Performed By: #### L 501.080 ####[facility] [address] [place], [address] FINGERSTICK GLU 237 mg/dL High 74-106 [facility] Comment on above: Result Comment: CHAUNCEY GEMENT OF PATIENT CARE PER NURSING PROTOCOL Performed By: #### L 501.080 ####[facility] [address] [place], [address] FINGERSTICK GLU 220 mg/dL High -106 [facility] Comment on above: Result Comment: CHAUNCEY GEMENT OF PATIENT CARE PER NURSING PROTOCOL Performed By: #### L 501.080 ####[facility] [address] [place], [address] CBC W/Diff, Automatedon 06-0 5-2024 Absolute Lymph 1.14 X10 3/uL Normal 0.83-4.51 [facility] Comment on above: Performed By: #### L 100.0100, L500.4050 ####[facility] [address] [place], [address] Absolute Neut 3.5 X10 3/uL Normal 2.0-7.7 [facility] Comment on above: Performed By: #### L 100.0100, L500.4050 ####[facility] [address] [place], [address] Basophils/100 WBC (Bld) 0.7 % Normal 0-1 [facility] Comment on above: Performed By: #### L 100.0100, L500.4050 ####[facility] [address] [place], [address] Eosinophils/100 WBC (Bld) 3.1 % Normal 0-5 [facility] Comment on above: Performed By: #### L 100.0100, L500.4050 ####[facility] [address] [place], [address] Erythrocyte distribution width (RBC) [Ratio] 12.5 % Normal 11.6-14.6 [facility] Comment on above: Performed By: #### L 100.0100, L500.4050 ####[facility] [address] [place], [address] Hematocrit (Bld) [Volume fraction] 31.0 % Low 37-47 [facility] Comment on above: Performed By: #### L 100.0100, L500.4050 ####[facility] [address] [place], [address] Hemoglobin (Bld) [Mass/Vol] 10.4 g/dL Low 12.0-15.0 [facility] Comment on above: Performed By: #### L 100.0100, L500.4050 ####[facility] [address] [place], [address] IG% 0.300 Normal 0.0-0.9 [facility] Comment on above: Result Comment: IG% - Immature Granulocytes (promyelocytes, myelocytes andmetamyelocytes) > 1% indicates that a LEFT SHIFT is Present. Performed By: #### L 100.0100, L500.4050 ####[facility] [address] [place], [address] Lymphocytes/100 WBC (Bld) 19.7 % Normal 19-41 [facility] Comment on above: Performed By: #### L 100.0100, L500.4050 ####[facility] [address] [place], [address] MCH (RBC) [Entitic mass] 35.6 pg High 27.0-32.0 [facility] Comment on above: Performed By: #### L 100.0100, L500.4050 ####[facility] [address] [place], [address] MCHC (RBC) [Mass/Vol] 33.5 g/dL Normal 32-36 [facility] Comment on above: Performed By: #### L 100.0100, L500.4050 ####[facility] [address] [place], [address] MCV (RBC) [Entitic vol] 106.2 fL High 81-99 [facility] Comment on above: Performed By: #### L 100.0100, L500.4050 ####[facility] [address] [place], [address] Monocytes/100 WBC (Bld) 15.1 % High 0-10 [facility] Comment on above: Performed By: #### L 100.0100, L500.4050 ####[facility] [address] [place], [address] Neutrophils/100 WBC (Bld) 61.1 % Normal 47-70 [facility] Comment on above: Performed By: #### L 100.0100, L500.4050 ####[facility] [address] [place], [address] Nucleated RBC (Bld) [#/Vol] 0 10*3/uL Normal 0-5 [facility] Comment on above: Performed By: #### L 100.0100, L500.4050 ####[facility] [address] [place], [address] Platelet mean volume (Bld) [Entitic vol] 10.2 fL Normal 6.2-12.0 [facility] Comment on above: Performed By: #### L 100.0100, L500.4050 ####[facility] [address] [place], [address] Platelets (Bld) [#/Vol] 297 10*3/uL Normal 150-450 [facility] Comment on above: Performed By: #### L 100.0100, L500.4050 ####[facility] [address] [place], [address] RBC (Bld) [#/Vol] 2.92 10*6/uL Low 4.2-5.4 [facility] Comment on above: Performed By: #### L 100.0100, L500.4050 ####[facility] [id number] [place], [address] RDW SD 49.1 fl High 35.1-43.9 [facility] Comment on above: Performed By: #### L 100.0100, L500.4050 ####[facility] [address] [place], [address] WBC (Bld) [#/Vol] 5.8 10*3/uL Normal 4.4-11.0 [facility] Comment on above: Performed By: #### L 100.0100, L500.4050 ####[facility] [address] [place], [address] Comprehensive Metabolic Prof alon 05-03-2025 Albumin [Mass/Vol] 3.1 g/dL Low 3.5-5.0 [facility] Comment on above: Performed By: #### L 100.0100, L500.4050 ####[facility] [address] [place], [address] Albumin/Globulin [Mass ratio] 1.1 {ratio} Normal 0.9-2.4 [facility] Comment on above: Performed By: #### L 100.0100, L500.4050 ####[facility] [address] [place], [address] ALK PHOS 311 U/L High 35-104 [facility] Comment on above: Performed By: #### L 100.0100, L500.4050 ####[facility] [address] [place], [address] ALT [Catalytic activity/Vol] 38 U/L High <=34 [facility] Comment on above: Performed By: #### L 100.0100, L500.4050 ####[facility] [address] [place], [address] AST [Catalytic activity/Vol] 48 U/L High <=31 [facility] Comment on above: Performed By: #### L 100.0100, L500.4050 ####[facility] [address] [place], [address] Bilirubin [Mass/Vol] 0.32 mg/dL Normal 0.00-1.30 [facility] Comment on above: Performed By: #### L 100.0100, L500.4050 ####[facility] [address] [place], [address] BUN/CRE 12.9 RATIO Normal 10-20 [facility] Comment on above: Performed By: #### L 100.0100, L500.4050 ####[facility] [address] [place], [address] Calcium [Mass/Vol] 8.5 mg/dL Normal 7.6-11.0 [facility] Comment on above: Performed By: #### L 100.0100, L500.4050 ####[facility] [address] [place], [address] Chloride [Moles/Vol] 97 mmol/L Low 98-108 [facility] Comment on above: Performed By: #### L 100.0100, L500.4050 ####[facility] [address] [place], [address] CO2 [Moles/Vol] 28.2 mmol/L Normal 21.0-32.0 [facility] Comment on above: Performed By: #### L 100.0100, L500.4050 ####[facility] [address] [place], [address] Creatinine [Mass/Vol] 0.58 mg/dL Low 0.70-1.20 [facility] Comment on above: Performed By: #### L 100.0100, L500.4050 ####[facility] [address] [place], [address] ECRCL 102.43 ml/min Normal 50-250 [facility] Comment on above: Performed By: #### L 100.0100, L500.4050 ####[facility] [address] [place], [address] GAP 9 Normal 5-15 [facility] Comment on above: Performed By: #### L 100.0100, L500.4050 ####[facility] [address] [place], [address] GFR/1.73 sq M.predicted among non-blacks MDRD (S/P/Bld) [Vol rate/Area] 112 mL/min/{1.73_m2} Normal >60 [facility] Comment on above: Result Comment: mL/m in/1.73m2 CKD-EPI Creatinine Equation (2020) Performed By: #### L 100.0100, L500.4050 ####[facility] [address] [place], [address] Globulin (S) [Mass/Vol] 2.8 g/dL Normal 2.2-4.2 [facility] Comment on above: Performed By: #### L 100.0100, L500.4050 ####[facility] [address] [place], [address] Glucose [Mass/Vol] 227 mg/dL High 70-99 [facility] Comment on above: Performed By: #### L 100.0100, L500.4050 ####[facility] [address] [place], [address] Potassium [Moles/Vol] 4.8 mmol/L Normal 3.3-5.1 [facility] Comment on above: Performed By: #### L 100.0100, L500.4050 ####[facility] [address] [place], [address] Sodium [Moles/Vol] 135 mmol/L Normal 133-145 [facility] Comment on above: Performed By: #### L 100.0100, L500.4050 ####[facility] [address] [place], [address] T PROT 5.9 g/dL Normal 5.9-8.4 [facility] Comment on above: Performed By: #### L 100.0100, L500.4050 ####[facility] [address] [place], [address] Urea nitrogen [Mass/Vol] 7 mg/dL Normal 4-19 [facility] Comment on above: Performed By: #### L 100.0100, L500.4050 ####[facility] [address] [place], [address] Bedside Glucoseon 05-02-2025 FINGERSTICK GLU 288 mg/dL High 74-106 [facility] Comment on above: Result Comment: CHAUNCEY GEMENT OF PATIENT CARE PER NURSING PROTOCOL Performed By: #### L 501.080 ####[facility] [address] [place], [address] FINGERSTICK GLU 198 mg/dL High 74-106 [facility] Comment on above: Result Comment: CHAUNCEY GEMENT OF PATIENT CARE PER NURSING PROTOCOL Performed By: #### L 501.080 ####[facility] [address] [place], [address] FINGERSTICK GLU 196 mg/dL High 74-106 [facility] Comment on above: Result Comment: CHAUNCEY GEMENT OF PATIENT CARE PER NURSING PROTOCOL Performed By: #### L 501.080 ####[facility] [address] [place], [address] CBC W/Diff, Automatedon 06-0 Absolute Lymph 1.17 X10 3/uL Normal 0.83-4.51 [facility] Comment on above: Performed By: #### L 501.5200, L500.4050, L100.0100, L501.2300 ####[facility] [address] [place], [address] Absolute Neut 3.0 X10 3/uL Normal 2.0-7.7 [facility] Comment on above: Performed By: #### L 501.5200, L500.4050, L100.0100, L501.2300 ####[facility] [address] [place], [address] Basophils/100 WBC (Bld) 0.6 % Normal 0-1 [facility] Comment on above: Performed By: #### L 501.5200, L500.4050, L100.0100, L501.2300 ####[facility] [address] [place], [address] Eosinophils/100 WBC (Bld) 3.3 % Normal 0-5 [facility] Comment on above: Performed By: #### L 501.5200, L500.4050, L100.0100, L501.2300 ####[facility] [address] [place], [address] Erythrocyte distribution width (RBC) [Ratio] 12.5 % Normal 11.6-14.6 [facility] Comment on above: Performed By: #### L 501.5200, L500.4050, L100.0100, L501.2300 ####[facility] [address] [place], [address] Hematocrit (Bld) [Volume fraction] 30.1 % Low 37-47 [facility] Comment on above: Performed By: #### L 501.5200, L500.4050, L100.0100, L501.2300 ####[facility] [address] [place], [address] Hemoglobin (Bld) [Mass/Vol] 10.4 g/dL Low 12.0-15.0 [facility] Comment on above: Performed By: #### L 501.5200, L500.4050, L100.0100, L501.2300 ####[facility] [address] [place], [address] IG% 0.600 Normal 0.0-0.9 [facility] Comment on above: Result Comment: IG% - Immature Granulocytes (promyelocytes, myelocytes andmetamyelocytes) > 1% indicates that a LEFT SHIFT is Present. Performed By: #### L 501.5200, L500.4050, L100.0100, L501.2300 ####[facility] [address] [place], [address] Lymphocytes/100 WBC (Bld) 22.5 % Normal 19-41 [facility] Comment on above: Performed By: #### L 501.5200, L500.4050, L100.0100, L501.2300 ####[facility] [address] [place], [address] MCH (RBC) [Entitic mass] 36.9 pg High 27.0-32.0 [facility] Comment on above: Performed By: #### L 501.5200, L500.4050, L100.0100, L501.2300 ####[facility] [address] [place], [address] MCHC (RBC) [Mass/Vol] 34.6 g/dL Normal 32-36 [facility] Comment on above: Performed By: #### L 501.5200, L500.4050, L100.0100, L501.2300 ####[facility] [address] [place], [address] MCV (RBC) [Entitic vol] 106.7 fL High 81-99 [facility] Comment on above: Performed By: #### L 501.5200, L500.4050, L100.0100, L501.2300 ####[facility] [address] [place], [address] Monocytes/100 WBC (Bld) 15.8 % High 0-10 [facility] Comment on above: Performed By: #### L 501.5200, L500.4050, L100.0100, L501.2300 ####[facility] [address] [place], [address] Neutrophils/100 WBC (Bld) 57.2 % Normal 47-70 [facility] Comment on above: Performed By: #### L 501.5200, L500.4050, L100.0100, L501.2300 ####[facility] [address] [place], [address] Nucleated RBC (Bld) [#/Vol] 0 10*3/uL Normal 0-5 [facility] Comment on above: Performed By: #### L 501.5200, L500.4050, L100.0100, L501.2300 ####[facility] [address] [place], [address] Platelet mean volume (Bld) [Entitic vol] 10.3 fL Normal 6.2-12.0 [facility] Comment on above: Performed By: #### L 501.5200, L500.4050, L100.0100, L501.2300 ####[facility] [address] [place], [address] Platelets (Bld) [#/Vol] 247 10*3/uL Normal 150-450 [facility] Comment on above: Performed By: #### L 501.5200, L500.4050, L100.0100, L501.2300 ####[facility] [address] [place], [address] RBC (Bld) [#/Vol] 2.82 10*6/uL Low 4.2-5.4 [facility] Comment on above: Performed By: #### L 501.5200, L500.4050, L100.0100, L501.2300 ####[facility] [address] [place], [address] RDW SD 49.4 fl High 35.1-43.9 [facility] Comment on above: Performed By: #### L 501.5200, L500.4050, L100.0100, L501.2300 ####[facility] [address] [place], [address] WBC (Bld) [#/Vol] 5.2 10*3/uL Normal 4.4-11.0 [facility] Comment on above: Performed By: #### L 501.5200, L500.4050, L100.0100, L501.2300 ####[facility] [address] [place], [address] Comprehensive Metabolic Prof alon 05-02-2025 Albumin [Mass/Vol] 3.1 g/dL Low 3.5-5.0 [facility] Comment on above: Performed By: #### L 501.5200, L500.4050, L100.0100, L501.2300 ####[facility] [address] [place], [address] Albumin/Globulin [Mass ratio] 1.2 {ratio} Normal 0.9-2.4 [facility] Comment on above: Performed By: #### L 501.5200, L500.4050, L100.0100, L501.2300 ####[facility] [address] [place], [address] ALK PHOS 230 U/L High 35-104 [facility] Comment on above: Performed By: #### L 501.5200, L500.4050, L100.0100, L501.2300 ####[facility] [address] [place], [address] ALT [Catalytic activity/Vol] 33 U/L Normal <=34 [facility] Comment on above: Performed By: #### L 501.5200, L500.4050, L100.0100, L501.2300 ####[facility] [address] [place], [address] AST [Catalytic activity/Vol] 40 U/L High <=31 [facility] Comment on above: Performed By: #### L 501.5200, L500.4050, L100.0100, L501.2300 ####[facility] [address] [place], [address] Bilirubin [Mass/Vol] 0.49 mg/dL Normal 0.00-1.30 [facility] Comment on above: Performed By: #### L 501.5200, L500.4050, L100.0100, L501.2300 ####[facility] [address] [place], [address] BUN/CRE 13.6 RATIO Normal 10-20 [facility] Comment on above: Performed By: #### L 501.5200, L500.4050, L100.0100, L501.2300 ####[facility] [address] [place], [address] Calcium [Mass/Vol] 8.7 mg/dL Normal 7.6-11.0 [facility] Comment on above: Performed By: #### L 501.5200, L500.4050, L100.0100, L501.2300 ####[facility] [address] [place], [address] Chloride [Moles/Vol] 95 mmol/L Low 98-108 [facility] Comment on above: Performed By: #### L 501.5200, L500.4050, L100.0100, L501.2300 ####[facility] [address] [place], [address] CO2 [Moles/Vol] 28.5 mmol/L Normal 21.0-32.0 [facility] Comment on above: Performed By: #### L 501.5200, L500.4050, L100.0100, L501.2300 ####[facility] [address] [place], [address] Creatinine [Mass/Vol] 0.52 mg/dL Low 0.70-1.20 [facility] Comment on above: Performed By: #### L 501.5200, L500.4050, L100.0100, L501.2300 ####[facility] [address] [place], [address] ECRCL 114.25 ml/min Normal 50-250 [facility] Comment on above: Performed By: #### L 501.5200, L500.4050, L100.0100, L501.2300 ####[facility] [address] [place], [address] GAP 11 Normal 5-15 [facility] Comment on above: Performed By: #### L 501.5200, L500.4050, L100.0100, L501.2300 ####[facility] [address] [place], [address] GFR/1.73 sq M.predicted among non-blacks MDRD (S/P/Bld) [Vol rate/Area] 115 mL/min/{1.73_m2} Normal >60 [facility] Comment on above: Result Comment: mL/m in/1.73m2 CKD-EPI Creatinine Equation (2020) Performed By: #### L 501.5200, L500.4050, L100.0100, L501.2300 ####[facility] [address] [place], [address] Globulin (S) [Mass/Vol] 2.7 g/dL Normal 2.2-4.2 [facility] Comment on above: Performed By: #### L 501.5200, L500.4050, L100.0100, L501.2300 ####[facility] [address] [place], [address] Glucose [Mass/Vol] 197 mg/dL High 70-99 [facility] Comment on above: Performed By: #### L 501.5200, L500.4050, L100.0100, L501.2300 ####[facility] [address] [place], [address] Potassium [Moles/Vol] 4.2 mmol/L Normal 3.3-5.1 [facility] Comment on above: Performed By: #### L 501.5200, L500.4050, L100.0100, L501.2300 ####[facility] [address] [place], [address] Sodium [Moles/Vol] 134 mmol/L Normal 133-145 [facility] Comment on above: Performed By: #### L 501.5200, L500.4050, L100.0100, L501.2300 ####[facility] [address] [place], [address] T PROT 5.8 g/dL Low 5.9-8.4 [facility] Comment on above: Performed By: #### L 501.5200, L500.4050, L100.0100, L501.2300 ####[facility] [address] [place], [address] Urea nitrogen [Mass/Vol] 7 mg/dL Normal 4-19 [facility] Comment on above: Performed By: #### L 501.5200, L500.4050, L100.0100, L501.2300 ####[facility] [address] [place], [address] Magnesiumon 05-02-2025 Magnesium [Mass/Vol] 1.2 mg/dL Low 1.5-2.2 [facility] Comment on above: Performed By: #### L 501.5200, L500.4050, L100.0100, L501.2300 ####[facility] [address] [place], [address] Magnesium measurement (mass/ volume)Ordered By: Canelo Myers on 05-02-2025 Magnesium (Unsp spec) [Mass/Vol] 1.2 mg/dL Low 1.5-2.2 [facility] Phosphoruson 05-02-2025 Phosphate [Mass/Vol] 5.0 mg/dL High 2.7-4.5 [facility] Comment on above: Performed By: #### L 501.5200, L500.4050, L100.0100, L501.2300 ####[facility] [address] [place], [address] Bedside Glucoseon 05-01-2025 FINGERSTICK GLU 234 mg/dL High 74-106 [facility] Comment on above: Result Comment: CHAUNCEY GEMENT OF PATIENT CARE PER NURSING PROTOCOL Performed By: #### L 501.080 ####[facility] [address] [place], [address] FINGERSTICK GLU 316 mg/dL High -106 [facility] Comment on above: Result Comment: CHAUNCEY GEMENT OF PATIENT CARE PER NURSING PROTOCOL Performed By: #### L 501.080 ####[facility] [address] [place], [address] FINGERSTICK GLU 168 mg/dL High 74-106 [facility] Comment on above: Result Comment: CHAUNCEY GEMENT OF PATIENT CARE PER NURSING PROTOCOL Performed By: #### L 501.080 ####[facility] [address] [place], [address] Bilirubin directOrdered By: Canelo Myers on 05-01-2025 Bilirubin.direct [Mass/Vol] 0.32 mg/dL High 0.00-0.30 [facility] Liver Profileon 05-01-2025 Albumin [Mass/Vol] 3.0 g/dL Low 3.5-5.0 [facility] Comment on above: Performed By: #### L 500.3400 ####[facility] [address] [place], [address] ALK PHOS 166 U/L High 35-104 [facility] Comment on above: Performed By: #### L 500.3400 ####[facility] [address] [place], [address] ALT [Catalytic activity/Vol] 39 U/L High <=34 [facility] Comment on above: Performed By: #### L 500.3400 ####[facility] [address] [place], [address] AST [Catalytic activity/Vol] 73 U/L High <=31 [facility] Comment on above: Performed By: #### L 500.3400 ####[facility] [address] [place], [address] Bilirubin [Mass/Vol] 0.59 mg/dL Normal 0.00-1.30 [facility] Comment on above: Performed By: #### L 500.3400 ####[facility] [address] [place], [address] Bilirubin.direct [Mass/Vol] 0.32 mg/dL High 0.00-0.30 [facility] Comment on above: Performed By: #### L 500.3400 ####[facility] [address] [place], [address] Globulin (S) [Mass/Vol] 2.7 g/dL Normal 2.2-4.2 [facility] Comment on above: Performed By: #### L 500.3400 ####[facility] [address] [place], [address] T PROT 5.7 g/dL Low 5.9-8.4 [facility] Comment on above: Performed By: #### L 500.3400 ####[facility] [address] [place], [address] Phosphoruson 05-01-2025 Phosphate [Mass/Vol] 5.1 mg/dL High 2.7-4.5 [facility] Comment on above: Performed By: #### L 501.2300 ####[facility] [address] [place], [address] Basic Metabolic Profile (BMP )on 04-30-2025 BUN/CRE UNABLE TO CALCULATE Low 10-20 [facility] Comment on above: Performed By: #### L 500.2500, L500.3400, L100.0100 ####[facility] [address] [place], [address] Calcium [Mass/Vol] 8.5 mg/dL Normal 7.6-11.0 [facility] Comment on above: Performed By: #### L 500.2500, L500.3400, L100.0100 ####[facility] [address] [place], [address] Chloride [Moles/Vol] 98 mmol/L Normal 98-108 [facility] Comment on above: Performed By: #### L 500.2500, L500.3400, L100.0100 ####[facility] [address] [place], [address] CO2 [Moles/Vol] 28.1 mmol/L Normal 21.0-32.0 [facility] Comment on above: Performed By: #### L 500.2500, L500.3400, L100.0100 ####[facility] [address] [place], [address] Creatinine [Mass/Vol] 0.41 mg/dL Low 0.70-1.20 [facility] Comment on above: Performed By: #### L 500.2500, L500.3400, L100.0100 ####[facility] [address] [place], [address] ECRCL 144.90 ml/min Normal 50-250 [facility] Comment on above: Performed By: #### L 500.2500, L500.3400, L100.0100 ####[facility] [address] [place], [address] GAP 13 Normal 5-15 [facility] Comment on above: Performed By: #### L 500.2500, L500.3400, L100.0100 ####[facility] [address] [place], [address] GFR/1.73 sq M.predicted among non-blacks MDRD (S/P/Bld) [Vol rate/Area] 121 mL/min/{1.73_m2} Normal >60 [facility] Comment on above: Result Comment: mL/m in/1.73m2 CKD-EPI Creatinine Equation (2020) Performed By: #### L 500.2500, L500.3400, L100.0100 ####[facility] [address] [place], [address] Glucose [Mass/Vol] 124 mg/dL High 70-99 [facility] Comment on above: Performed By: #### L 500.2500, L500.3400, L100.0100 ####[facility] [address] [place], [address] Potassium [Moles/Vol] 2.7 mmol/L Invalid Interpretation Code 3.3-5.1 [facility] Comment on above: Result Comment: Crit ical Result(s) Called at: by:??Results read back bysame. Performed By: #### L 500.2500, L500.3400, L100.0100 ####[facility] [address] [place], [address] Sodium [Moles/Vol] 139 mmol/L Normal 133-145 [facility] Comment on above: Performed By: #### L 500.2500, L500.3400, L100.0100 ####[facility] [address] [place], [address] Urea nitrogen [Mass/Vol] mg/dL Low 4-19 [facility] Comment on above: Performed By: #### L 500.2500, L500.3400, L100.0100 ####[facility] [address] [place], [address] Bedside Glucoseon --2024 FINGERSTICK GLU 147 mg/dL High 74-106 [facility] Comment on above: Result Comment: CHAUNCEY GEMENT OF PATIENT CARE PER NURSING PROTOCOL Performed By: #### L 501.080 ####[facility] [address] [place], [address] FINGERSTICK GLU 230 mg/dL High 74-106 [facility] Comment on above: Result Comment: CHAUNCEY GEMENT OF PATIENT CARE PER NURSING PROTOCOL Performed By: #### L 501.080 ####[facility] [address] [place], [address] FINGERSTICK GLU 149 mg/dL High 74-106 [facility] Comment on above: Result Comment: CHAUNCEY GEMENT OF PATIENT CARE PER NURSING PROTOCOL Performed By: #### L 501.080 ####[facility] [address] [place], [address] CBC W/Diff, Automatedon 06-0 Absolute Lymph 1.39 X10 3/uL Normal 0.83-4.51 [facility] Comment on above: Performed By: #### L 500.2500, L500.3400, L100.0100 ####[facility] [address] [place], [address] Absolute Neut 3.6 X10 3/uL Normal 2.0-7.7 [facility] Comment on above: Performed By: #### L 500.2500, L500.3400, L100.0100 ####[facility] [address] [place], [address] Basophils/100 WBC (Bld) 0.5 % Normal 0-1 [facility] Comment on above: Performed By: #### L 500.2500, L500.3400, L100.0100 ####[facility] [address] [place], [address] Eosinophils/100 WBC (Bld) 2.0 % Normal 0-5 [facility] Comment on above: Performed By: #### L 500.2500, L500.3400, L100.0100 ####[facility] [address] [place], [address] Erythrocyte distribution width (RBC) [Ratio] 12.6 % Normal 11.6-14.6 [facility] Comment on above: Performed By: #### L 500.2500, L500.3400, L100.0100 ####[facility] [address] [place], [address] Hematocrit (Bld) [Volume fraction] 29.7 % Low 37-47 [facility] Comment on above: Performed By: #### L 500.2500, L500.3400, L100.0100 ####[facility] [address] [place], [address] Hemoglobin (Bld) [Mass/Vol] 10.3 g/dL Low 12.0-15.0 [facility] Comment on above: Performed By: #### L 500.2500, L500.3400, L100.0100 ####[facility] [address] [place], [address] IG% 0.500 Normal 0.0-0.9 [facility] Comment on above: Result Comment: IG% - Immature Granulocytes (promyelocytes, myelocytes andmetamyelocytes) > 1% indicates that a LEFT SHIFT is Present. Performed By: #### L 500.2500, L500.3400, L100.0100 ####[facility] [address] [place], [address] Lymphocytes/100 WBC (Bld) 23.4 % Normal 19-41 [facility] Comment on above: Performed By: #### L 500.2500, L500.3400, L100.0100 ####[facility] [address] [place], [address] MCH (RBC) [Entitic mass] 36.7 pg High 27.0-32.0 [facility] Comment on above: Performed By: #### L 500.2500, L500.3400, L100.0100 ####[facility] [address] [place], [address] MCHC (RBC) [Mass/Vol] 34.7 g/dL Normal 32-36 [facility] Comment on above: Performed By: #### L 500.2500, L500.3400, L100.0100 ####[facility] [address] [place], [address] MCV (RBC) [Entitic vol] 105.7 fL High 81-99 [facility] Comment on above: Performed By: #### L 500.2500, L500.3400, L100.0100 ####[facility] [address] [place], [address] Monocytes/100 WBC (Bld) 13.8 % High 0-10 [facility] Comment on above: Performed By: #### L 500.2500, L500.3400, L100.0100 ####[facility] [address] [place], [address] Neutrophils/100 WBC (Bld) 59.8 % Normal 47-70 [facility] Comment on above: Performed By: #### L 500.2500, L500.3400, L100.0100 ####[facility] [address] [place], [address] Nucleated RBC (Bld) [#/Vol] 0 10*3/uL Normal 0-5 [facility] Comment on above: Performed By: #### L 500.2500, L500.3400, L100.0100 ####[facility] [address] [place], [address] Platelet mean volume (Bld) [Entitic vol] 10.4 fL Normal 6.2-12.0 [facility] Comment on above: Performed By: #### L 500.2500, L500.3400, L100.0100 ####[facility] [address] [place], [address] Platelets (Bld) [#/Vol] 145 10*3/uL Low 150-450 [facility] Comment on above: Performed By: #### L 500.2500, L500.3400, L100.0100 ####[facility] [address] [place], [address] RBC (Bld) [#/Vol] 2.81 10*6/uL Low 4.2-5.4 [facility] Comment on above: Performed By: #### L 500.2500, L500.3400, L100.0100 ####[facility] [address] [place], [address] RDW SD 49.7 fl High 35.1-43.9 [facility] Comment on above: Performed By: #### L 500.2500, L500.3400, L100.0100 ####[facility] [address] [place], [address] WBC (Bld) [#/Vol] 6.0 10*3/uL Normal 4.4-11.0 [facility] Comment on above: Performed By: #### L 500.2500, L500.3400, L100.0100 ####[facility] [address] [place], [address] Liver Profileon 04-30-2025 Albumin [Mass/Vol] 3.2 g/dL Low 3.5-5.0 [facility] Comment on above: Performed By: #### L 500.2500, L500.3400, L100.0100 ####[facility] [address] [place], [address] ALK PHOS 98 U/L Normal 35-104 [facility] Comment on above: Performed By: #### L 500.2500, L500.3400, L100.0100 ####[facility] [address] [place], [address] ALT [Catalytic activity/Vol] 32 U/L Normal <=34 [facility] Comment on above: Performed By: #### L 500.2500, L500.3400, L100.0100 ####[facility] [address] [place], [address] AST [Catalytic activity/Vol] 39 U/L High <=31 [facility] Comment on above: Performed By: #### L 500.2500, L500.3400, L100.0100 ####[facility] [address] [place], [address] Bilirubin [Mass/Vol] 0.67 mg/dL Normal 0.00-1.30 [facility] Comment on above: Performed By: #### L 500.2500, L500.3400, L100.0100 ####[facility] [address] [place], [address] Bilirubin.direct [Mass/Vol] 0.41 mg/dL High 0.00-0.30 [facility] Comment on above: Performed By: #### L 500.2500, L500.3400, L100.0100 ####[facility] [address] [place], [address] Globulin (S) [Mass/Vol] 2.6 g/dL Normal 2.2-4.2 [facility] Comment on above: Performed By: #### L 500.2500, L500.3400, L100.0100 ####[facility] [address] [place], [address] T PROT 5.9 g/dL Normal 5.9-8.4 [facility] Comment on above: Performed By: #### L 500.2500, L500.3400, L100.0100 ####[facility] [address] [place], [address] Magnesiumon 04-30-2025 Magnesium [Mass/Vol] 1.5 mg/dL Normal 1.5-2.2 [facility] Comment on above: Performed By: #### L 501.5200 ####[facility] [address] [place], [address] Basic Metabolic Profile (BMP )on 04-29-2025 BUN/CRE UNABLE TO CALCULATE Low 10-20 [facility] Comment on above: Performed By: #### L 500.2500, L500.3400, L501.5200, L100.0100 ####[facility] [address] [place], [address] Calcium [Mass/Vol] 8.2 mg/dL Normal 7.6-11.0 [facility] Comment on above: Performed By: #### L 500.2500, L500.3400, L501.5200, L100.0100 ####[facility] [address] [place], [address] Chloride [Moles/Vol] 103 mmol/L Normal 98-108 [facility] Comment on above: Performed By: #### L 500.2500, L500.3400, L501.5200, L100.0100 ####[facility] [address] [place], [address] CO2 [Moles/Vol] 26.0 mmol/L Normal 21.0-32.0 [facility] Comment on above: Performed By: #### L 500.2500, L500.3400, L501.5200, L100.0100 ####[facility] [address] [place], [address] Creatinine [Mass/Vol] 0.40 mg/dL Low 0.70-1.20 [facility] Comment on above: Performed By: #### L 500.2500, L500.3400, L501.5200, L100.0100 ####[facility] [address] [place], [address] ECRCL 148.53 ml/min Normal 50-250 [facility] Comment on above: Performed By: #### L 500.2500, L500.3400, L501.5200, L100.0100 ####[facility] [address] [place], [address] GAP 11 Normal 5-15 [facility] Comment on above: Performed By: #### L 500.2500, L500.3400, L501.5200, L100.0100 ####[facility] [address] [place], [address] GFR/1.73 sq M.predicted among non-blacks MDRD (S/P/Bld) [Vol rate/Area] 122 mL/min/{1.73_m2} Normal >60 [facility] Comment on above: Result Comment: mL/m in/1.73m2 CKD-EPI Creatinine Equation (2020) Performed By: #### L 500.2500, L500.3400, L501.5200, L100.0100 ####[facility] [address] [place], [address] Glucose [Mass/Vol] 126 mg/dL High 70-99 [facility] Comment on above: Performed By: #### L 500.2500, L500.3400, L501.5200, L100.0100 ####[facility] [address] [place], [address] Potassium [Moles/Vol] 2.8 mmol/L Low 3.3-5.1 [facility] Comment on above: Performed By: #### L 500.2500, L500.3400, L501.5200, L100.0100 ####[facility] [address] [place], [address] Sodium [Moles/Vol] 140 mmol/L Normal 133-145 [facility] Comment on above: Performed By: #### L 500.2500, L500.3400, L501.5200, L100.0100 ####[facility] [address] [place], [address] Urea nitrogen [Mass/Vol] mg/dL Low 4-19 [facility] Comment on above: Performed By: #### L 500.2500, L500.3400, L501.5200, L100.0100 ####[facility] [address] [place], [address] Bedside Glucoseon 04-29-2025 FINGERSTICK GLU 187 mg/dL High 74-106 [facility] Comment on above: Result Comment: CHAUNCEY GEMENT OF PATIENT CARE PER NURSING PROTOCOL Performed By: #### L 501.080 ####[facility] [address] [place], [address] FINGERSTICK GLU 121 mg/dL High 74-106 [facility] Comment on above: Result Comment: CHAUNCEY GEMENT OF PATIENT CARE PER NURSING PROTOCOL Performed By: #### L 501.080 ####[facility] [address] [place], [address] FINGERSTICK GLU 218 mg/dL High 74-106 [facility] Comment on above: Result Comment: CHAUNCEY GEMENT OF PATIENT CARE PER NURSING PROTOCOL Performed By: #### L 501.080 ####[facility] [address] [place], [address] FINGERSTICK GLU 132 mg/dL High 74-106 [facility] Comment on above: Result Comment: CHAUNCEY GEMENT OF PATIENT CARE PER NURSING PROTOCOL Performed By: #### L 501.080 ####[facility] [address] [place], [address] CBC W/Diff, Automatedon 06-0 -2024 Absolute Lymph 1.02 X10 3/uL Normal 0.83-4.51 [facility] Comment on above: Performed By: #### L 500.2500, L500.3400, L501.5200, L100.0100 ####[facility] [address] [place], [address] Absolute Neut 5.3 X10 3/uL Normal 2.0-7.7 [facility] Comment on above: Performed By: #### L 500.2500, L500.3400, L501.5200, L100.0100 ####[facility] [address] [place], [address] Basophils/100 WBC (Bld) 0.4 % Normal 0-1 [facility] Comment on above: Performed By: #### L 500.2500, L500.3400, L501.5200, L100.0100 ####[facility] [address] [place], [address] Eosinophils/100 WBC (Bld) 1.1 % Normal 0-5 [facility] Comment on above: Performed By: #### L 500.2500, L500.3400, L501.5200, L100.0100 ####[facility] [address] [place], [address] Erythrocyte distribution width (RBC) [Ratio] 12.2 % Normal 11.6-14.6 [facility] Comment on above: Performed By: #### L 500.2500, L500.3400, L501.5200, L100.0100 ####[facility] [address] [place], [address] Hematocrit (Bld) [Volume fraction] 28.7 % Low 37-47 [facility] Comment on above: Performed By: #### L 500.2500, L500.3400, L501.5200, L100.0100 ####[facility] [address] [place], [address] Hemoglobin (Bld) [Mass/Vol] 9.9 g/dL Low 12.0-15.0 [facility] Comment on above: Performed By: #### L 500.2500, L500.3400, L501.5200, L100.0100 ####[facility] [address] [place], [address] IG% 0.600 Normal 0.0-0.9 [facility] Comment on above: Result Comment: IG% - Immature Granulocytes (promyelocytes, myelocytes andmetamyelocytes) > 1% indicates that a LEFT SHIFT is Present. Performed By: #### L 500.2500, L500.3400, L501.5200, L100.0100 ####[facility] [address] [place], [address] Lymphocytes/100 WBC (Bld) 14.1 % Low 19-41 [facility] Comment on above: Performed By: #### L 500.2500, L500.3400, L501.5200, L100.0100 ####[facility] [address] [place], [address] MCH (RBC) [Entitic mass] 36.5 pg High 27.0-32.0 [facility] Comment on above: Performed By: #### L 500.2500, L500.3400, L501.5200, L100.0100 ####[facility] [address] [place], [address] MCHC (RBC) [Mass/Vol] 34.5 g/dL Normal 32-36 [facility] Comment on above: Performed By: #### L 500.2500, L500.3400, L501.5200, L100.0100 ####[facility] [address] [place], [address] MCV (RBC) [Entitic vol] 105.9 fL High 81-99 [facility] Comment on above: Performed By: #### L 500.2500, L500.3400, L501.5200, L100.0100 ####[facility] [address] [place], [address] Monocytes/100 WBC (Bld) 10.9 % High 0-10 [facility] Comment on above: Performed By: #### L 500.2500, L500.3400, L501.5200, L100.0100 ####[facility] [address] [place], [address] Neutrophils/100 WBC (Bld) 72.9 % High 47-70 [facility] Comment on above: Performed By: #### L 500.2500, L500.3400, L501.5200, L100.0100 ####[facility] [address] [place], [address] Nucleated RBC (Bld) [#/Vol] 0 10*3/uL Normal 0-5 [facility] Comment on above: Performed By: #### L 500.2500, L500.3400, L501.5200, L100.0100 ####[facility] [address] [place], [address] Platelet mean volume (Bld) [Entitic vol] 10.5 fL Normal 6.2-12.0 [facility] Comment on above: Performed By: #### L 500.2500, L500.3400, L501.5200, L100.0100 ####[facility] [address] [place], [address] Platelets (Bld) [#/Vol] 110 10*3/uL Low 150-450 [facility] Comment on above: Performed By: #### L 500.2500, L500.3400, L501.5200, L100.0100 ####[facility] [address] [place], [address] RBC (Bld) [#/Vol] 2.71 10*6/uL Low 4.2-5.4 [facility] Comment on above: Performed By: #### L 500.2500, L500.3400, L501.5200, L100.0100 ####[facility] [address] [place], [address] RDW SD 47.6 fl High 35.1-43.9 [facility] Comment on above: Performed By: #### L 500.2500, L500.3400, L501.5200, L100.0100 ####[facility] [address] [place], [address] WBC (Bld) [#/Vol] 7.2 10*3/uL Normal 4.4-11.0 [facility] Comment on above: Performed By: #### L 500.2500, L500.3400, L501.5200, L100.0100 ####[facility] [address] [place], [address] Liver Profileon 04-29-2025 Albumin [Mass/Vol] 3.2 g/dL Low 3.5-5.0 [facility] Comment on above: Performed By: #### L 500.2500, L500.3400, L501.5200, L100.0100 ####[facility] [address] [place], [address] ALK PHOS 108 U/L High 35-104 [facility] Comment on above: Performed By: #### L 500.2500, L500.3400, L501.5200, L100.0100 ####[facility] [address] [place], [address] ALT [Catalytic activity/Vol] 37 U/L High <=34 [facility] Comment on above: Performed By: #### L 500.2500, L500.3400, L501.5200, L100.0100 ####[facility] [address] [place], [address] AST [Catalytic activity/Vol] 56 U/L High <=31 [facility] Comment on above: Performed By: #### L 500.2500, L500.3400, L501.5200, L100.0100 ####[facility] [address] [place], [address] Bilirubin [Mass/Vol] 0.71 mg/dL Normal 0.00-1.30 [facility] Comment on above: Performed By: #### L 500.2500, L500.3400, L501.5200, L100.0100 ####[facility] [address] [place], [address] Bilirubin.direct [Mass/Vol] 0.43 mg/dL High 0.00-0.30 [facility] Comment on above: Performed By: #### L 500.2500, L500.3400, L501.5200, L100.0100 ####[facility] [address] [place], [address] Globulin (S) [Mass/Vol] 2.4 g/dL Normal 2.2-4.2 [facility] Comment on above: Performed By: #### L 500.2500, L500.3400, L501.5200, L100.0100 ####[facility] [address] [place], [address] T PROT 5.6 g/dL Low 5.9-8.4 [facility] Comment on above: Performed By: #### L 500.2500, L500.3400, L501.5200, L100.0100 ####[facility] [address] [place], [address] Magnesiumon 04-29-2025 Magnesium [Mass/Vol] 1.5 mg/dL Normal 1.5-2.2 [facility] Comment on above: Performed By: #### L 500.2500, L500.3400, L501.5200, L100.0100 ####[facility] [address] [place], [address] Phosphoruson 04-29-2025 Phosphate [Mass/Vol] 2.0 mg/dL Low 2.7-4.5 [facility] Comment on above: Performed By: #### L 501.2300 ####[facility] [address] [place], [address] Basic Metabolic Profile (BMP )on 04-28-2025 BUN/CRE 6.9 RATIO Low 10-20 [facility] Comment on above: Performed By: #### L 500.2500, L500.3400, L501.5200, L501.2450 ####[facility] [address] [place], [address] Calcium [Mass/Vol] 8.3 mg/dL Normal 7.6-11.0 [facility] Comment on above: Performed By: #### L 500.2500, L500.3400, L501.5200, L501.2450 ####[facility] [address] [place], [address] Chloride [Moles/Vol] 100 mmol/L Normal 98-108 [facility] Comment on above: Performed By: #### L 500.2500, L500.3400, L501.5200, L501.2450 ####[facility] [address] [place], [address] CO2 [Moles/Vol] 24.9 mmol/L Normal 21.0-32.0 [facility] Comment on above: Performed By: #### L 500.2500, L500.3400, L501.5200, L501.2450 ####[facility] [address] [place], [address] Creatinine [Mass/Vol] 0.50 mg/dL Low 0.70-1.20 [facility] Comment on above: Performed By: #### L 500.2500, L500.3400, L501.5200, L501.2450 ####[facility] [address] [place], [address] ECRCL 118.82 ml/min Normal 50-250 [facility] Comment on above: Performed By: #### L 500.2500, L500.3400, L501.5200, L501.2450 ####[facility] [address] [place], [address] GAP 12 Normal 5-15 [facility] Comment on above: Performed By: #### L 500.2500, L500.3400, L501.5200, L501.2450 ####[facility] [address] [place], [address] GFR/1.73 sq M.predicted among non-blacks MDRD (S/P/Bld) [Vol rate/Area] 115 mL/min/{1.73_m2} Normal >60 [facility] Comment on above: Result Comment: mL/m in/1.73m2 CKD-EPI Creatinine Equation (2020) Performed By: #### L 500.2500, L500.3400, L501.5200, L501.2450 ####[facility] [address] [place], [address] Glucose [Mass/Vol] 103 mg/dL High 70-99 [facility] Comment on above: Performed By: #### L 500.2500, L500.3400, L501.5200, L501.2450 ####[facility] [address] [place], [address] Potassium [Moles/Vol] 3.2 mmol/L Low 3.3-5.1 [facility] Comment on above: Performed By: #### L 500.2500, L500.3400, L501.5200, L501.2450 ####[facility] [address] [place], [address] Sodium [Moles/Vol] 137 mmol/L Normal 133-145 [facility] Comment on above: Performed By: #### L 500.2500, L500.3400, L501.5200, L501.2450 ####[facility] [address] [place], [address] Urea nitrogen [Mass/Vol] 3 mg/dL Low 4-19 [facility] Comment on above: Performed By: #### L 500.2500, L500.3400, L501.5200, L501.2450 ####[facility] [address] [place], [address] Bedside Glucoseon 04-28-2025 FINGERSTICK GLU 140 mg/dL High 74-106 [facility] Comment on above: Result Comment: CHAUNCEY GEMENT OF PATIENT CARE PER NURSING PROTOCOL Performed By: #### L 501.080 ####[facility] [address] [place], [address] FINGERSTICK GLU 181 mg/dL High 74-106 [facility] Comment on above: Result Comment: CHAUNCEY GEMENT OF PATIENT CARE PER NURSING PROTOCOL Performed By: #### L 501.080 ####[facility] [address] [place], [address] FINGERSTICK GLU 104 mg/dL Normal 74-106 [facility] Comment on above: Result Comment: CHAUNCEY RIZO OF PATIENT CARE PER NURSING PROTOCOL Performed By: #### L 501.080 ####[facility] [address] [place], [address] CBC W/Diff, Automatedon 05-3 Absolute Lymph 0.95 X10 3/uL Normal 0.83-4.51 [facility] Comment on above: Performed By: #### L 100.0100, L501.2300 ####[facility] [address] [place], [address] Absolute Neut 5.9 X10 3/uL Normal 2.0-7.7 [facility] Comment on above: Performed By: #### L 100.0100, L501.2300 ####[facility] [address] [place], [address] Basophils/100 WBC (Bld) 0.3 % Normal 0-1 [facility] Comment on above: Performed By: #### L 100.0100, L501.2300 ####[facility] [address] [place], [address] Eosinophils/100 WBC (Bld) 0.8 % Normal 0-5 [facility] Comment on above: Performed By: #### L 100.0100, L501.2300 ####[facility] [address] [place], [address] Erythrocyte distribution width (RBC) [Ratio] 12.2 % Normal 11.6-14.6 [facility] Comment on above: Performed By: #### L 100.0100, L501.2300 ####[facility] [address] [place], [address] Hematocrit (Bld) [Volume fraction] 34.3 % Low 37-47 [facility] Comment on above: Performed By: #### L 100.0100, L501.2300 ####[facility] [address] [place], [address] Hemoglobin (Bld) [Mass/Vol] 11.6 g/dL Low 12.0-15.0 [facility] Comment on above: Performed By: #### L 100.0100, L501.2300 ####[facility] [address] [place], [address] IG% 0.400 Normal 0.0-0.9 [facility] Comment on above: Result Comment: IG% - Immature Granulocytes (promyelocytes, myelocytes andmetamyelocytes) > 1% indicates that a LEFT SHIFT is Present. Performed By: #### L 100.0100, L501.2300 ####[facility] [address] [place], [address] Lymphocytes/100 WBC (Bld) 12.5 % Low 19-41 [facility] Comment on above: Performed By: #### L 100.0100, L501.2300 ####[facility] [address] [place], [address] MCH (RBC) [Entitic mass] 36.4 pg High 27.0-32.0 [facility] Comment on above: Performed By: #### L 100.0100, L501.2300 ####[facility] [address] [place], [address] MCHC (RBC) [Mass/Vol] 33.8 g/dL Normal 32-36 [facility] Comment on above: Performed By: #### L 100.0100, L501.2300 ####[facility] [address] [place], [address] MCV (RBC) [Entitic vol] 107.5 fL High 81-99 [facility] Comment on above: Performed By: #### L 100.0100, L501.2300 ####[facility] [address] [place], [address] Monocytes/100 WBC (Bld) 8.0 % Normal 0-10 [facility] Comment on above: Performed By: #### L 100.0100, L501.2300 ####[facility] [address] [place], [address] Neutrophils/100 WBC (Bld) 78.0 % High 47-70 [facility] Comment on above: Performed By: #### L 100.0100, L501.2300 ####[facility] [address] [place], [address] Nucleated RBC (Bld) [#/Vol] 0 10*3/uL Normal 0-5 [facility] Comment on above: Performed By: #### L 100.0100, L501.2300 ####[facility] [address] [place], [address] Platelet mean volume (Bld) [Entitic vol] 10.3 fL Normal 6.2-12.0 [facility] Comment on above: Performed By: #### L 100.0100, L501.2300 ####[facility] [address] [place], [address] Platelets (Bld) [#/Vol] 119 10*3/uL Low 150-450 [facility] Comment on above: Performed By: #### L 100.0100, L501.2300 ####[facility] [address] [place], [address] RBC (Bld) [#/Vol] 3.19 10*6/uL Low 4.2-5.4 [facility] Comment on above: Performed By: #### L 100.0100, L501.2300 ####[facility] [address] [place], [address] RDW SD 48.2 fl High 35.1-43.9 [facility] Comment on above: Performed By: #### L 100.0100, L501.2300 ####[facility] [address] [place], [address] WBC (Bld) [#/Vol] 7.6 10*3/uL Normal 4.4-11.0 [facility] Comment on above: Performed By: #### L 100.0100, L501.2300 ####[facility] [address] [place], [address] Lipaseon 04-28-2025 Lipase [Catalytic activity/Vol] 533 U/L High 13-75 [facility] Comment on above: Result Comment: Lucie schultz note:LIPASE revised reference range effective 23.New Lipase methodology. Expected to produce lower valuesthan the previous assay method.NEW Reference Range: 13 - 75 U/L Performed By: #### L 500.2500, L500.3400, L501.5200, L501.2450 ####[facility] [address] [place], [address] Lipase measurementOrdered By : Canelo Myers on 04-28-2025 Lipase [Catalytic activity/Vol] 533 U/L High 13-75 [facility] Comment on above: Please note:LIPASE r evised reference range effective 23. New Lipase methodology. Expected to produce lower values than the previous assay method. NEW Reference Range: 13 - 75 U/L Liver Profileon 04-28-2025 Albumin [Mass/Vol] 3.7 g/dL Normal 3.5-5.0 [facility] Comment on above: Performed By: #### L 500.2500, L500.3400, L501.5200, L501.2450 ####[facility] [address] [place], [address] ALK PHOS 158 U/L High 35-104 [facility] Comment on above: Performed By: #### L 500.2500, L500.3400, L501.5200, L501.2450 ####[facility] [address] [place], [address] ALT [Catalytic activity/Vol] 72 U/L High <=34 [facility] Comment on above: Performed By: #### L 500.2500, L500.3400, L501.5200, L501.2450 ####[facility] [address] [place], [address] AST [Catalytic activity/Vol] 265 U/L High <=31 [facility] Comment on above: Performed By: #### L 500.2500, L500.3400, L501.5200, L501.2450 ####[facility] [address] [place], [address] Bilirubin [Mass/Vol] 1.26 mg/dL Normal 0.00-1.30 [facility] Comment on above: Performed By: #### L 500.2500, L500.3400, L501.5200, L501.2450 ####[facility] [address] [place], [address] Bilirubin.direct [Mass/Vol] 0.79 mg/dL High 0.00-0.30 [facility] Comment on above: Performed By: #### L 500.2500, L500.3400, L501.5200, L501.2450 ####[facility] [address] [place], [address] Globulin (S) [Mass/Vol] 2.6 g/dL Normal 2.2-4.2 [facility] Comment on above: Performed By: #### L 500.2500, L500.3400, L501.5200, L501.2450 ####[facility] [address] [place], [address] T PROT 6.3 g/dL Normal 5.9-8.4 [facility] Comment on above: Performed By: #### L 500.2500, L500.3400, L501.5200, L501.2450 ####[facility] [address] [place], [address] Magnesiumon 04-28-2025 Magnesium [Mass/Vol] 1.5 mg/dL Normal 1.5-2.2 [facility] Comment on above: Performed By: #### L 500.2500, L500.3400, L501.5200, L501.2450 ####[facility] [address] [place], [address] Phosphoruson 04-28-2025 Phosphate [Mass/Vol] 1.5 mg/dL Low 2.7-4.5 [facility] Comment on above: Performed By: #### L 100.0100, L501.2300 ####[facility] [address] [place], [address] Basic Metabolic Profile (BMP )on 04-27-2025 BUN/CRE 9.1 RATIO Low 10-20 [facility] Comment on above: Performed By: #### L 300.3900, L500.3400, L501.2300, L501.5200, L501.9520, L500.4050, L500.2500, L100.0100 ####[facility] [address] [place], [address] Calcium [Mass/Vol] 8.0 mg/dL Normal 7.6-11.0 [facility] Comment on above: Performed By: #### L 300.3900, L500.3400, L501.2300, L501.5200, L501.9520, L500.4050, L500.2500, L100.0100 ####[facility] [address] [place], [address] Chloride [Moles/Vol] 96 mmol/L Low 98-108 [facility] Comment on above: Performed By: #### L 300.3900, L500.3400, L501.2300, L501.5200, L501.9520, L500.4050, L500.2500, L100.0100 ####[facility] [address] [place], [address] CO2 [Moles/Vol] 16.0 mmol/L Low 21.0-32.0 [facility] Comment on above: Performed By: #### L 300.3900, L500.3400, L501.2300, L501.5200, L501.9520, L500.4050, L500.2500, L100.0100 ####[facility] [address] [place], [place], [id number] Creatinine [Mass/Vol] 0.69 mg/dL Low 0.70-1.20 [facility] Comment on above: Performed By: #### L 300.3900, L500.3400, L501.2300, L501.5200, L501.9520, L500.4050, L500.2500, L100.0100 ####[facility] [address] [place], [place], [id number] ECRCL 86.10 ml/min Normal 50-250 [facility] Comment on above: Performed By: #### L 300.3900, L500.3400, L501.2300, L501.5200, L501.9520, L500.4050, L500.2500, L100.0100 ####[facility] [address] [place], [address] GAP 22 High 5-15 [facility] Comment on above: Performed By: #### L 300.3900, L500.3400, L501.2300, L501.5200, L501.9520, L500.4050, L500.2500, L100.0100 ####[facility] [address] [place], [address] GFR/1.73 sq M.predicted among non-blacks MDRD (S/P/Bld) [Vol rate/Area] 107 mL/min/{1.73_m2} Normal >60 [facility] Comment on above: Result Comment: mL/m in/1.73m2 CKD-EPI Creatinine Equation (2020) Performed By: #### L 300.3900, L500.3400, L501.2300, L501.5200, L501.9520, L500.4050, L500.2500, L100.0100 ####[facility] [address] [place], [address] Glucose [Mass/Vol] 132 mg/dL High 70-99 [facility] Comment on above: Performed By: #### L 300.3900, L500.3400, L501.2300, L501.5200, L501.9520, L500.4050, L500.2500, L100.0100 ####[facility] [address] [place], [address] Potassium [Moles/Vol] 3.8 mmol/L Normal 3.3-5.1 [facility] Comment on above: Performed By: #### L 300.3900, L500.3400, L501.2300, L501.5200, L501.9520, L500.4050, L500.2500, L100.0100 ####[facility] [address] [place], [address] Sodium [Moles/Vol] 134 mmol/L Normal 133-145 [facility] Comment on above: Performed By: #### L 300.3900, L500.3400, L501.2300, L501.5200, L501.9520, L500.4050, L500.2500, L100.0100 ####[facility] [address] [place], [address] Urea nitrogen [Mass/Vol] 6 mg/dL Normal 4-19 [facility] Comment on above: Performed By: #### L 300.3900, L500.3400, L501.2300, L501.5200, L501.9520, L500.4050, L500.2500, L100.0100 ####[facility] [address] [place], [address] Bedside Glucoseon 04-27-2025 FINGERSTICK GLU 153 mg/dL High 74-106 [facility] Comment on above: Result Comment: CHAUNCEY GEMENT OF PATIENT CARE PER NURSING PROTOCOL Performed By: #### L 501.080 ####[facility] [address] [place], [address] FINGERSTICK GLU 149 mg/dL High 74-106 [facility] Comment on above: Result Comment: CHAUNCEY GEMENT OF PATIENT CARE PER NURSING PROTOCOL Performed By: #### L 501.080 ####[facility] [address] [place], [address] FINGERSTICK GLU 194 mg/dL High 74-106 [facility] Comment on above: Result Comment: CHAUNCEY GEMENT OF PATIENT CARE PER NURSING PROTOCOL Performed By: #### L 501.080 ####[facility] [address] [place], [address] FINGERSTICK GLU 107 mg/dL High 74-106 [facility] Comment on above: Result Comment: CHAUNCEY GEMENT OF PATIENT CARE PER NURSING PROTOCOL Performed By: #### L 501.080 ####[facility] [address] [place], [address] CBC W/Diff, Automatedon 05-3 0 Absolute Lymph 0.83 X10 3/uL Normal 0.83-4.51 [facility] Comment on above: Performed By: #### L 300.3900, L500.3400, L501.2300, L501.5200, L501.9520, L500.4050, L500.2500, L100.0100 ####[facility] [address] [place], [address] Absolute Neut 9.6 X10 3/uL High 2.0-7.7 [facility] Comment on above: Performed By: #### L 300.3900, L500.3400, L501.2300, L501.5200, L501.9520, L500.4050, L500.2500, L100.0100 ####[facility] [address] [place], [address] Basophils/100 WBC (Bld) 0.3 % Normal 0-1 [facility] Comment on above: Performed By: #### L 300.3900, L500.3400, L501.2300, L501.5200, L501.9520, L500.4050, L500.2500, L100.0100 ####[facility] [address] [place], [address] Eosinophils/100 WBC (Bld) 0.1 % Normal 0-5 [facility] Comment on above: Performed By: #### L 300.3900, L500.3400, L501.2300, L501.5200, L501.9520, L500.4050, L500.2500, L100.0100 ####[facility] [address] [place], [address] Erythrocyte distribution width (RBC) [Ratio] 12.7 % Normal 11.6-14.6 [facility] Comment on above: Performed By: #### L 300.3900, L500.3400, L501.2300, L501.5200, L501.9520, L500.4050, L500.2500, L100.0100 ####[facility] [address] [place], [address] Hematocrit (Bld) [Volume fraction] 39.2 % Normal 37-47 [facility] Comment on above: Performed By: #### L 300.3900, L500.3400, L501.2300, L501.5200, L501.9520, L500.4050, L500.2500, L100.0100 ####[facility] [address] [place], [address] Hemoglobin (Bld) [Mass/Vol] 13.5 g/dL Normal 12.0-15.0 [facility] Comment on above: Performed By: #### L 300.3900, L500.3400, L501.2300, L501.5200, L501.9520, L500.4050, L500.2500, L100.0100 ####[facility] [address] [place], [address] IG% 0.400 Normal 0.0-0.9 [facility] Comment on above: Result Comment: IG% - Immature Granulocytes (promyelocytes, myelocytes andmetamyelocytes) > 1% indicates that a LEFT SHIFT is Present. Performed By: #### L 300.3900, L500.3400, L501.2300, L501.5200, L501.9520, L500.4050, L500.2500, L100.0100 ####[facility] [address] [place], [address] Lymphocytes/100 WBC (Bld) 7.3 % Low 19-41 [facility] Comment on above: Performed By: #### L 300.3900, L500.3400, L501.2300, L501.5200, L501.9520, L500.4050, L500.2500, L100.0100 ####[facility] [address] [place], [address] MCH (RBC) [Entitic mass] 36.6 pg High 27.0-32.0 [facility] Comment on above: Performed By: #### L 300.3900, L500.3400, L501.2300, L501.5200, L501.9520, L500.4050, L500.2500, L100.0100 ####[facility] [address] [place], [address] MCHC (RBC) [Mass/Vol] 34.4 g/dL Normal 32-36 [facility] Comment on above: Performed By: #### L 300.3900, L500.3400, L501.2300, L501.5200, L501.9520, L500.4050, L500.2500, L100.0100 ####[facility] [address] [place], [address] MCV (RBC) [Entitic vol] 106.2 fL High 81-99 [facility] Comment on above: Performed By: #### L 300.3900, L500.3400, L501.2300, L501.5200, L501.9520, L500.4050, L500.2500, L100.0100 ####[facility] [address] [place], [address] Monocytes/100 WBC (Bld) 7.9 % Normal 0-10 [facility] Comment on above: Performed By: #### L 300.3900, L500.3400, L501.2300, L501.5200, L501.9520, L500.4050, L500.2500, L100.0100 ####[facility] [address] [place], [address] Neutrophils/100 WBC (Bld) 84.0 % High 47-70 [facility] Comment on above: Performed By: #### L 300.3900, L500.3400, L501.2300, L501.5200, L501.9520, L500.4050, L500.2500, L100.0100 ####[facility] [address] [place], [address] Nucleated RBC (Bld) [#/Vol] 0 10*3/uL Normal 0-5 [facility] Comment on above: Performed By: #### L 300.3900, L500.3400, L501.2300, L501.5200, L501.9520, L500.4050, L500.2500, L100.0100 ####[facility] [address] [place], [address] Platelet mean volume (Bld) [Entitic vol] 9.7 fL Normal 6.2-12.0 [facility] Comment on above: Performed By: #### L 300.3900, L500.3400, L501.2300, L501.5200, L501.9520, L500.4050, L500.2500, L100.0100 ####[facility] [address] [place], [address] Platelets (Bld) [#/Vol] 153 10*3/uL Normal 150-450 [facility] Comment on above: Performed By: #### L 300.3900, L500.3400, L501.2300, L501.5200, L501.9520, L500.4050, L500.2500, L100.0100 ####[facility] [address] [place], [address] RBC (Bld) [#/Vol] 3.69 10*6/uL Low 4.2-5.4 [facility] Comment on above: Performed By: #### L 300.3900, L500.3400, L501.2300, L501.5200, L501.9520, L500.4050, L500.2500, L100.0100 ####[facility] [address] [place], [place], [id number] RDW SD 49.7 fl High 35.1-43.9 [facility] Comment on above: Performed By: #### L 300.3900, L500.3400, L501.2300, L501.5200, L501.9520, L500.4050, L500.2500, L100.0100 ####[facility] [address] [place], [address] WBC (Bld) [#/Vol] 11.4 10*3/uL High 4.4-11.0 [facility] Comment on above: Performed By: #### L 300.3900, L500.3400, L501.2300, L501.5200, L501.9520, L500.4050, L500.2500, L100.0100 ####[facility] [address] [place], [address] Comprehensive Metabolic Prof ilon 04-27-2025 Albumin/Globulin [Mass ratio] 1.4 {ratio} Normal 0.9-2.4 [facility] Comment on above: Performed By: #### L 300.3900, L500.3400, L501.2300, L501.5200, L501.9520, L500.4050, L500.2500, L100.0100 ####[facility] [address] [place], [place], [id number] Hemoglobin A1con 04-27-2025 HbA1c (Bld) [Mass fraction] 5.6 % Normal <=5.6 [facility] Comment on above: Result Comment: Norm al < 5.7 % Prediabetic 5.7 - 6.4 % Diabetic >or= 6.5 % Please note range changes. Performed By: #### L 950.1917 ####[facility] [address] [place], [address] Hemoglobin A1c percentageOrd ered By: Julius Moncada on 04-27-2025 HbA1c (Bld) [Mass fraction] 5.6 % <5.7 [facility] Comment on above: Normal < 5.7 % Predi abetic 5.7 - 6.4 % Diabetic >or= 6.5 % Please note range changes. International normalized rat io (INR) calculationOrdered By: Julius Moncada on 04-27-2025 INR Coag (Bld) [Relative time] 1.0 {INR} [facility] Liver Profileon 04-27-2025 Albumin [Mass/Vol] 3.9 g/dL Normal 3.5-5.0 [facility] Comment on above: Performed By: #### L 300.3900, L500.3400, L501.2300, L501.5200, L501.9520, L500.4050, L500.2500, L100.0100 ####[facility] [address] [place], [place], [phone] ALK PHOS 98 U/L Normal 35-104 [facility] Comment on above: Performed By: #### L 300.3900, L500.3400, L501.2300, L501.5200, L501.9520, L500.4050, L500.2500, L100.0100 ####[facility] [address] [place], [place], [phone] ALT [Catalytic activity/Vol] 46 U/L High <=34 [facility] Comment on above: Performed By: #### L 300.3900, L500.3400, L501.2300, L501.5200, L501.9520, L500.4050, L500.2500, L100.0100 ####[facility] [address] [place], [place], [phone] AST [Catalytic activity/Vol] 96 U/L High <=31 [facility] Comment on above: Performed By: #### L 300.3900, L500.3400, L501.2300, L501.5200, L501.9520, L500.4050, L500.2500, L100.0100 ####[facility] [address] [place], [address] Bilirubin [Mass/Vol] 0.99 mg/dL Normal 0.00-1.30 [facility] Comment on above: Performed By: #### L 300.3900, L500.3400, L501.2300, L501.5200, L501.9520, L500.4050, L500.2500, L100.0100 ####[facility] [address] [place], [address] Bilirubin.direct [Mass/Vol] 0.54 mg/dL High 0.00-0.30 [facility] Comment on above: Performed By: #### L 300.3900, L500.3400, L501.2300, L501.5200, L501.9520, L500.4050, L500.2500, L100.0100 ####[facility] [address] [place], [address] Globulin (S) [Mass/Vol] 2.7 g/dL Normal 2.2-4.2 [facility] Comment on above: Performed By: #### L 300.3900, L500.3400, L501.2300, L501.5200, L501.9520, L500.4050, L500.2500, L100.0100 ####[facility] [address] [place], [address] T PROT 6.6 g/dL Normal 5.9-8.4 [facility] Comment on above: Performed By: #### L 300.3900, L500.3400, L501.2300, L501.5200, L501.9520, L500.4050, L500.2500, L100.0100 ####[facility] [address] [place], [address] Magnesiumon 04-27-2025 Magnesium [Mass/Vol] 0.9 mg/dL Invalid Interpretation Code 1.5-2.2 [facility] Comment on above: Result Comment: Crit ical Result(s) Called at:04/27/2025-02:13 by: Rachel.??Results read back by same. Performed By: #### L 300.3900, L500.3400, L501.2300, L501.5200, L501.9520, L500.4050, L500.2500, L100.0100 ####[facility] [address] [place], [place], [phone] Phosphoruson 04-27-2025 Phosphate [Mass/Vol] 3.3 mg/dL Normal 2.7-4.5 [facility] Comment on above: Performed By: #### L 300.3900, L500.3400, L501.2300, L501.5200, L501.9520, L500.4050, L500.2500, L100.0100 ####[facility] [address] [place], [place], [phone] Prothrombin Time w/INRon INR Coag (PPP) [Relative time] 1.0 {INR} Normal [facility] Comment on above: Performed By: #### L 300.3900, L500.3400, L501.2300, L501.5200, L501.9520, L500.4050, L500.2500, L100.0100 ####[facility] [address] [place], [place], [phone] PT Coag (PPP) [Time] 12.9 s Normal 11.7-14.9 [facility] Comment on above: Performed By: #### L 300.3900, L500.3400, L501.2300, L501.5200, L501.9520, L500.4050, L500.2500, L100.0100 ####[facility] [address] [place], [place], [phone] Prothrombin timeOrdered By: Julius Moncada on 04-27-2025 PT Coag (PPP) [Time] 12.9 s 11.7-14.9 [facility] TSH DL <= 0.005 mIU/L QnOrde red By: Julius Moncada on 04-27-2025 TSH Qn 4.010 uIU/mL 0.300-4.200 [facility] Comment on above: Previous reported re sult: 3.960 uIU/mLEdited by: BRITTNEY on 04/27/25:0236 AMENDED REPORT 04/27/25235 TSH previously reported as: 3.960 uIU/mL Thyroid Stim Hormone (TSH)on 04-27-2025 TSH 4.010 uIU/mL Normal 0.300-4.200 [facility] Comment on above: Result Comment: AMENDED REPORT 04/27/25235 TSH previously reported as: 3.960 uIU/mL Performed By: #### L 300.3900, L500.3400, L501.2300, L501.5200, L501.9520, L500.4050, L500.2500, L100.0100 ####[facility] [address] [place], [place], [id number] Abdomen/Pelvis W IV Cont ONL Yon 04-26-2025 Abdomen/Pelvis W IV Cont ONLY Normal [facility] Absolute lymphocyte countOrd ered By: Humphrey Garcia on 04-26-2025 Lymphocytes Auto (Unsp spec) [#/Vol] 0.76 10*3/uL Low 0.83-4.51 [facility] Absolute neutrophil countOrd ered By: Humphrey Garcia on 04-26-2025 Neutrophils (Bld) [#/Vol] 8.8 10*3/uL High 2.0-7.7 [facility] Alcohol, Blood (Medical)-Ser umon 04-26-2025 SERUM ETOH < 10.1 Normal <=10.0 [facility] Comment on above: Result Comment: This test is for medical purposes only. The legaldefinition of intoxication varies according to local law. Performed By: #### L 501.9100 ####[facility] [address] [place], [address] Anion gap in Serum or Plasma Ordered By: Humphrey Garcia on 04-26-2025 Anion gap [Moles/Vol] 36 mmol/L High 5-15 [facility] Automated lymphocyte count a s percentage of total leukocytesOrdered By: Humphrey Garcia on 04-26-2025 Lymphocytes/100 WBC Auto (Unsp spec) 7.3 % Low 19-41 [facility] BUN/creatinine ratioOrdered By: Humphrey Garcia on 04-26-2025 Urea nitrogen/Creatinine [Mass ratio] 11.2 mg/mg 10-20 [facility] Basophil percentageOrdered B y: Humphrey Garcia on 04-26-2025 Basophils/100 WBC (Bld) 0.4 % 0-1 [facility] Bilirubin Test strip Ql (U)O rdered By: Humphrey Garcia on 04-26-2025 Bilirubin Ql (U) Negative Negative [facility] Bilirubin, totalOrdered By: Humphrey Garcia on 04-26-2025 Bilirubin [Mass/Vol] 1.42 mg/dL High 0.00-1.30 [facility] CBC W/Diff, Automatedon 03-30 Absolute Lymph 0.76 X10 3/uL Low 0.83-4.51 [facility] Comment on above: Performed By: #### L 501.2450, L500.4050, L100.0100 ####[facility] [address] [place], [address] Absolute Neut 8.8 X10 3/uL High 2.0-7.7 [facility] Comment on above: Performed By: #### L 501.2450, L500.4050, L100.0100 ####[facility] [address] [place], [address] Basophils/100 WBC (Bld) 0.4 % Normal 0-1 [facility] Comment on above: Performed By: #### L 501.2450, L500.4050, L100.0100 ####[facility] [address] [place], [address] Eosinophils/100 WBC (Bld) 0.0 % Normal 0-5 [facility] Comment on above: Performed By: #### L 501.2450, L500.4050, L100.0100 ####[facility] [address] [place], [address] Erythrocyte distribution width (RBC) [Ratio] 12.8 % Normal 11.6-14.6 [facility] Comment on above: Performed By: #### L 501.2450, L500.4050, L100.0100 ####[facility] [address] [place], [address] Hematocrit (Bld) [Volume fraction] 42.8 % Normal 37-47 [facility] Comment on above: Performed By: #### L 501.2450, L500.4050, L100.0100 ####[facility] [address] [place], [address] Hemoglobin (Bld) [Mass/Vol] 14.8 g/dL Normal 12.0-15.0 [facility] Comment on above: Performed By: #### L 501.2450, L500.4050, L100.0100 ####[facility] [address] [place], [address] IG% 0.700 Normal 0.0-0.9 [facility] Comment on above: Result Comment: IG% - Immature Granulocytes (promyelocytes, myelocytes andmetamyelocytes) > 1% indicates that a LEFT SHIFT is Present. Performed By: #### L 501.2450, L500.4050, L100.0100 ####[facility] [address] [place], [address] Lymphocytes/100 WBC (Bld) 7.3 % Low 19-41 [facility] Comment on above: Performed By: #### L 501.2450, L500.4050, L100.0100 ####[facility] [address] [place], [address] MCH (RBC) [Entitic mass] 36.2 pg High 27.0-32.0 [facility] Comment on above: Performed By: #### L 501.2450, L500.4050, L100.0100 ####[facility] [address] [place], [address] MCHC (RBC) [Mass/Vol] 34.6 g/dL Normal 32-36 [facility] Comment on above: Performed By: #### L 501.2450, L500.4050, L100.0100 ####[facility] [address] [place], [address] MCV (RBC) [Entitic vol] 104.6 fL High 81-99 [facility] Comment on above: Performed By: #### L 501.2450, L500.4050, L100.0100 ####[facility] [address] [place], [address] Monocytes/100 WBC (Bld) 7.0 % Normal 0-10 [facility] Comment on above: Performed By: #### L 501.2450, L500.4050, L100.0100 ####[facility] [address] [place], [address] Neutrophils/100 WBC (Bld) 84.6 % High 47-70 [facility] Comment on above: Performed By: #### L 501.2450, L500.4050, L100.0100 ####[facility] [address] [place], [address] Nucleated RBC (Bld) [#/Vol] 0.2 10*3/uL Normal 0-5 [facility] Comment on above: Performed By: #### L 501.2450, L500.4050, L100.0100 ####[facility] [address] [place], [address] Platelet mean volume (Bld) [Entitic vol] 10.0 fL Normal 6.2-12.0 [facility] Comment on above: Performed By: #### L 501.2450, L500.4050, L100.0100 ####[facility] [address] [place], [address] Platelets (Bld) [#/Vol] 175 10*3/uL Normal 150-450 [facility] Comment on above: Performed By: #### L 501.2450, L500.4050, L100.0100 ####[facility] [address] [place], [address] RBC (Bld) [#/Vol] 4.09 10*6/uL Low 4.2-5.4 [facility] Comment on above: Performed By: #### L 501.2450, L500.4050, L100.0100 ####[facility] [address] [place], [address] RDW SD 49.4 fl High 35.1-43.9 [facility] Comment on above: Performed By: #### L 501.2450, L500.4050, L100.0100 ####[facility] [address] [place], [address] WBC (Bld) [#/Vol] 10.4 10*3/uL Normal 4.4-11.0 [facility] Comment on above: Performed By: #### L 501.2450, L500.4050, L100.0100 ####[facility] [address] [place], [address] Carbon dioxide, total [Moles /volume] in Central venous bloodOrdered By: Humphrey Garcia on 05-29-2025 CO2 [Moles/Vol] 16.4 mmol/L Low 21.0-32.0 [facility] Chloride assayOrdered By: Edison shelley Garcia on 04-26-2025 Chloride [Moles/Vol] 87 mmol/L Low 98-108 [facility] Comprehensive Metabolic Prof ilon 04-26-2025 Albumin [Mass/Vol] 4.5 g/dL Normal 3.5-5.0 [facility] Comment on above: Performed By: #### L 501.2450, L500.4050, L100.0100 ####[facility] [address] [place], [address] Albumin/Globulin [Mass ratio] 1.4 {ratio} Normal 0.9-2.4 [facility] Comment on above: Performed By: #### L 501.2450, L500.4050, L100.0100 ####[facility] [address] [place], [address] ALK PHOS 122 U/L High 35-104 [facility] Comment on above: Performed By: #### L 501.2450, L500.4050, L100.0100 ####[facility] [address] [place], [address] ALT [Catalytic activity/Vol] 62 U/L High <=34 [facility] Comment on above: Performed By: #### L 501.2450, L500.4050, L100.0100 ####[facility] [address] [place], [address] AST [Catalytic activity/Vol] 127 U/L High <=31 [facility] Comment on above: Performed By: #### L 501.2450, L500.4050, L100.0100 ####[facility] [address] [place], [address] Bilirubin [Mass/Vol] 1.42 mg/dL High 0.00-1.30 [facility] Comment on above: Performed By: #### L 501.2450, L500.4050, L100.0100 ####[facility] [address] [place], [address] BUN/CRE 11.2 RATIO Normal 10-20 [facility] Comment on above: Performed By: #### L 501.2450, [id number], L100.0100 ####[facility] [address] [place], [address] Calcium [Mass/Vol] 8.9 mg/dL Normal 7.6-11.0 [facility] Comment on above: Performed By: #### L 501.2450, L500.4050, L100.0100 ####[facility] [address] [place], [address] Chloride [Moles/Vol] 87 mmol/L Low 98-108 [facility] Comment on above: Performed By: #### L 501.2450, L500.4050, L100.0100 ####[facility] [address] [place], [address] CO2 [Moles/Vol] 16.4 mmol/L Low 21.0-32.0 [facility] Comment on above: Performed By: #### L 501.2450, L500.4050, L100.0100 ####[facility] [address] [place], [address] Creatinine [Mass/Vol] 0.70 mg/dL Normal 0.70-1.20 [facility] Comment on above: Performed By: #### L 501.2450, [id number], L100.0100 ####[facility] [address] [place], [address] ECRCL 84.87 ml/min Normal 50-250 [facility] Comment on above: Performed By: #### L 501.2450, [id number], L100.0100 ####[facility] [address] [place], [address] GAP 36 High 5-15 [facility] Comment on above: Performed By: #### L 501.2450, L500.4050, L100.0100 ####[facility] [address] [place], [address] GFR/1.73 sq M.predicted among non-blacks MDRD (S/P/Bld) [Vol rate/Area] 107 mL/min/{1.73_m2} Normal >60 [facility] Comment on above: Result Comment: mL/m in/1.73m2 CKD-EPI Creatinine Equation (2020) Performed By: #### L 501.2450, L500.4050, L100.0100 ####[facility] [address] [place], [address] Globulin (S) [Mass/Vol] 3.2 g/dL Normal 2.2-4.2 [facility] Comment on above: Performed By: #### L 501.2450, L500.4050, L100.0100 ####[facility] [address] [place], [address] Glucose [Mass/Vol] 156 mg/dL High 70-99 [facility] Comment on above: Performed By: #### L 501.2450, L500.4050, L100.0100 ####[facility] [address] [place], [address] Potassium [Moles/Vol] 2.8 mmol/L Low 3.3-5.1 [facility] Comment on above: Performed By: #### L 501.2450, L500.4050, L100.0100 ####[facility] [address] [place], [address] Sodium [Moles/Vol] 139 mmol/L Normal 133-145 [facility] [facility] Comment on above: Performed By: #### L 501.2450, L500.4050, L100.0100 ####[facility] [address] [place], [address] T PROT 7.7 g/dL Normal 5.9-8.4 [facility] Comment on above: Performed By: #### L 501.2450, L500.4050, L100.0100 ####[facility] [address] [place], [address] Urea nitrogen [Mass/Vol] 8 mg/dL Normal 4-19 [facility] Comment on above: Performed By: #### L 501.2450, L500.4050, L100.0100 ####[facility] [address] [place], [address] Emergency Department Summary on 04-26-2025 Emergency Department Summary Normal [facility] Eosinophil percentageOrdered By: Humphrey Garcia on 04-26-2025 Eosinophils/100 WBC (Bld) 0.0 % 0-5 [facility] Erythrocyte distribution wid th ratioOrdered By: Humphrey Garcia on 04-26-2025 Erythrocyte distribution width (RBC) [Ratio] 12.8 % 11.6-14.6 [facility] Erythrocyte distribution wid th standard deviationOrdered By: Humphrey Garcia on 04-26-2025 Erythrocyte distribution width (RBC) [Ratio] 49.4 fl High 35.1-43.9 [facility] Glomerular filtration rate ( GFR) estimation/1.73 sq m using serum, plasma, or whole bOrdered By: Humphrey Garcia on 04-26-2025 GFR/1.73 sq M.predicted among non-blacks MDRD (S/P/Bld) [Vol rate/Area] 107 mL/min/{1.73_m2} >60 [facility] Comment on above: mL/min/1.73m2 CKD-EP I Creatinine Equation (2020) H AND P Exam - [facility] 04-26-2025 H&P Exam - Hospitalist Normal [facility] Hematocrit Auto (Bld) [Volum e fraction]Ordered By: Humphrey Garcia on 04-26-2025 Hematocrit (Bld) [Volume fraction] 42.8 % 37-47 [facility] Hemoglobin measurementOrdere d By: Humphrey Garcia on 04-26-2025 Hemoglobin (Bld) [Mass/Vol] 14.8 g/dL 12.0-15.0 [facility] Immature granulocytes/100 WB C Auto (Bld)Ordered By: Humphrey Garcia on 04-26-2025 Immature granulocytes/100 WBC (Bld) 0.700 % 0.0-0.9 [facility] Comment on above: IG% - Immature Granu locytes (promyelocytes, myelocytes and metamyelocytes) > 1% indicates that a LEFT SHIFT is Present. Ketones Test strip Ql (U)Ord ered By: Humphrey Garcia on 04-26-2025 Ketones Ql (U) 150 mg/dl Abnormal Negative [facility] Comment on above: CRITICAL VALUE *HCRI TICAL VALUE CALLED TO [id number]/29/25 Xochitl8 Angelita Herzog.RESULTS READ BACK BY SAME. Laboratory - Chemistry and C hemistry - challengeOrdered By: Humphrey Garcia on 04-26-2025 AST [Catalytic activity/Vol] 127 U/L High <32 [facility] Lipaseon 04-26-2025 Lipase [Catalytic activity/Vol] 1045 U/L High 13-75 [facility] Comment on above: Result Comment: Lucie schultz note:LIPASE revised reference range effective 23.New Lipase methodology. Expected to produce lower valuesthan the previous assay method.NEW Reference Range: 13 - 75 U/L Performed By: #### L 501.2450, L500.4050, L100.0100 ####[facility] [address] [facility] [place], [address] Lipase measurementOrdered By : Humphrey Garcia on 04-26-2025 Lipase [Catalytic activity/Vol] 1045 U/L High 13-75 [facility] Comment on above: Please note:LIPASE r evised reference range effective 23. New Lipase methodology. Expected to produce lower values than the previous assay method. NEW Reference Range: 13 - 75 U/L MCV (mean corpuscular volume ) determinationOrdered By: Humphrey Garcia on 04-26-2025 MCV (RBC) [Entitic vol] 104.6 fL High 81-99 [facility] Mean corpuscular hemoglobin (MCH) determinationOrdered By: Humphrey Garcia on 04-26-2025 MCH (RBC) [Entitic mass] 36.2 pg High 27.0-32.0 [facility] Mean corpuscular hemoglobin concentration (MCHC) determinationOrdered By: Humphrey Garcia on 04-26-2025 MCHC (RBC) [Mass/Vol] 34.6 g/dL 32-36 [facility] Mean platelet volume determi nationOrdered By: Humphrey Garcia on 04-26-2025 Platelet mean volume (Bld) [Entitic vol] 10.0 fL 6.2-12.0 [facility] Microscopic analysis of urin e for red blood cells (RBC)Ordered By: Humphrey Garcia on 04-26-2025 Microscopic analysis of urine for red blood cells (RBC) 0-5 SEEN /hpf 0-5 [facility] Monocyte percentageOrdered B y: Humphrey Garcia on 04-26-2025 Monocytes/100 WBC (Bld) 7.0 % 0-10 [facility] Mucus LM Ql (Urine sed)Order ed By: Humphrey Garcia on 04-26-2025 Mucus Ql (Urine sed) 0 SEEN /hpf [facility] Neutrophil percentageOrdered By: Humphrey Garcia on 04-26-2025 Neutrophils/100 WBC (Bld) 84.6 % High 47-70 [facility] Nitrite Test strip Ql (U)Ord ered By: Humphrey Garcia on 04-26-2025 Nitrite Ql (U) Negative Negative [facility] Nucleated red blood cell per centageOrdered By: Humphrey Garcia on 04-26-2025 Nucleated RBC/100 WBC (Bld) [Ratio] 0.2 % 0-5 [facility] Platelet countOrdered By: Edison Garcia on 04-26-2025 Platelets (Bld) [#/Vol] 175 10*3/uL 150-450 [facility] Potassium measurement (mass/ volume)Ordered By: Humphrey Garcia on 04-26-2025 Potassium (Unsp spec) [Mass/Vol] 2.8 mmol/L Low 3.3-5.1 [facility] Protein Test strip Ql (U)Ord ered By: Humphrey Garcia on 04-26-2025 Protein Ql (U) 30 mg/dl High Negative [facility] Prothrombin Time w/INRon INR Coag (PPP) [Relative time] 1.0 {INR} Normal [facility] Comment on above: Performed By: #### L 300.3900 ####[facility] [address] [place], [address] PT Coag (PPP) [Time] 13.3 s Normal 11.7-14.9 [facility] Comment on above: Performed By: #### L 300.3900 ####[facility] [address] [place], [address] RBC Auto (Bld) [#/Vol]Ordere d By: Humphrey Garcia on 04-26-2025 RBC (Bld) [#/Vol] 4.09 10*6/uL Low 4.2-5.4 [facility] Serum creatinine measurement (mass/volume)Ordered By: Humphrey Garcia on 04-26-2025 Creatinine [Mass/Vol] 0.70 mg/dL 0.70-1.20 [facility] Serum globulin measurementOr dered By: Humphrey Garcia on 04-26-2025 Globulin (S) [Mass/Vol] 3.2 g/dL 2.2-4.2 [facility] Serum glucose measurement (m ass/volume)Ordered By: Humphrey Garcia on 04-26-2025 Glucose [Mass/Vol] 156 mg/dL High 70-99 [facility] Serum or plasma alanine wilkerson otransferase (ALT) measurementOrdered By: Humphrey Garcia on 04-26-2025 ALT [Catalytic activity/Vol] 62 U/L High <35 [facility] Serum or plasma albumin alphonso urement (mass/volume)Ordered By: Humphrey Garcia on 04-26-2025 Albumin [Mass/Vol] 4.5 g/dL 3.5-5.0 [facility] Serum or plasma albumin/glob ulin mass ratioOrdered By: Humphrey Garcia on 04-26-2025 Albumin/Globulin [Mass ratio] 1.4 {ratio} 0.9-2.4 [facility] Serum or plasma alkaline trinity sphatase measurementOrdered By: Humphrey Garcia on 04-26-2025 ALP [Catalytic activity/Vol] 122 U/L High 35-104 [facility] Serum or plasma calcium alphonso urement (mass/volume)Ordered By: Humphrey Garcia on 04-26-2025 Calcium [Mass/Vol] 8.9 mg/dL 7.6-11.0 [facility] Serum or plasma ethanol alphonso urement (mass/volume)Ordered By: Humphrey Garcia on 04-26-2025 Ethanol [Mass/Vol] mg/dL <10.1 [facility] Comment on above: This test is for med ical purposes only. The legal definition of intoxication varies according to local law. Serum or plasma urea nitroge n measurement (mass/volume)Ordered By: Humphrey Garcia on 04-26-2025 Urea nitrogen [Mass/Vol] 8 mg/dL 4-19 [facility] Sodium levelOrdered By: Scout Garcia on 04-26-2025 Sodium [Moles/Vol] 139 mmol/L 133-145 [facility] Squamous epithelial cells de tection in urine sediment by light microscopyOrdered By: Humphrey Garcia on 04-26-2025 Epithelial cells.squamous LM Ql (Urine sed) 0-5 SEEN /hpf 5-10 [facility] Total proteinOrdered By: Carin Garcia on 04-26-2025 Protein [Mass/Vol] 7.7 g/dL 5.9-8.4 [facility] Urinalysis, Completeon 04-26 EPI,SQUAMOUS 0-5 SEEN Normal 5-10 [facility] Comment on above: Order Comment: CLEAN CATCH Performed By: #### L 400.0001 ####[facility] [address] [place], [place], [address] RBC 0-5 SEEN Normal 0-5 [facility] Comment on above: Order Comment: CLEAN CATCH Performed By: #### L 400.0001 ####[facility] [address] [place], [address] BACTERIA 0 SEEN Normal None Seen [facility] Comment on above: Order Comment: CLEAN CATCH Performed By: #### L 400.0001 ####[facility] [address] [place], [address] Mucus Ql (Urine sed) 0 SEEN Normal [facility] Comment on above: Order Comment: CLEAN CATCH Performed By: #### L 400.0001 ####[facility] [address] [place], [address] WBC 0 SEEN Normal 0-5 [facility] Comment on above: Order Comment: CLEAN CATCH Performed By: #### L 400.0001 ####[facility] [address] [place], [place], [id number] Urine clarityOrdered By: Carin Garcia on 04-26-2025 Clarity (U) Clear Clear [facility] Urine color determinationOrd ered By: Humphrey Garcia on 04-26-2025 Color (U) Yellow Yellow [facility] Urine glucose detectionOrder ed By: Humphrey Garcia on 04-26-2025 Glucose Ql (U) 1000 mg/dl High Normal [facility] Urine leukocyte esterase det ection by dipstickOrdered By: Humphrey Garcia on 04-26-2025 Leukocyte esterase Test strip Ql (U) Negative Negative [facility] Urine pHOrdered By: Humphrey tyler on 04-26-2025 pH (U) 6.0 [pH] 5.0 - 8.0 [facility] Urine sediment bacteria coun t by microscopy (number/high power field)Ordered By: Humphrey Garcia on 04-26-2025 Bacteria LM.HPF (Urine sed) [#/Area] 0 /[HPF] None Seen [facility] Urine specific gravity measu rementOrdered By: Humphrey Garcia on 04-26-2025 Specific gravity (U) [Rel density] 1.010 1.002-1.030 [facility] Urine urobilinogen measureme ntOrdered By: Humphrey Garcia on 04-26-2025 Urobilinogen Ql (U) 1 mg/dl High Normal [facility] White blood cell (WBC) count Ordered By: Humphrey Garcia on 04-26-2025 WBC (Bld) [#/Vol] 10.4 10*3/uL 4.4-11.0 [facility] White blood cell countOrdere d By: Humphrey Garcia on 04-26-2025 White blood cell count 0 SEEN /hpf 0-5 [facility] 12 Lead EKGon 04-11-2025 12 Lead EKG Normal [facility] Absolute lymphocyte countOrd ered By: Francisco Colon on 04-11-2025 Lymphocytes Auto (Unsp spec) [#/Vol] 2.10 10*3/uL 0.83-4.51 [facility] Absolute neutrophil countOrd ered By: Francisco Colon on 04-11-2025 Neutrophils (Bld) [#/Vol] 2.1 10*3/uL 2.0-7.7 [facility] Alcohol, Blood (Medical)-Ser umon 04-11-2025 SERUM ETOH 328.0 mg/dL Invalid Interpretation Code <=10.0 [facility] Comment on above: Result Comment: Crit ical Result(s) Called at:2346 by: LUISITO GEORGE??Results read back by same.This test is for medical purposes only. The legaldefinition of intoxication varies according to local law. Performed By: #### L 501.4021, L100.0100, L500.2500, L501.9100, L501.2450 ####[facility] [address] [place], [address] Anion gap in Serum or Plasma Ordered By: Francisco Colon on 04-11-2025 Anion gap [Moles/Vol] 16 mmol/L High 5-15 [facility] Automated lymphocyte count a s percentage of total leukocytesOrdered By: Francisco Colon on 04-11-2025 Lymphocytes/100 WBC Auto (Unsp spec) 42.0 % High 19-41 [facility] BUN/creatinine ratioOrdered By: Francisco Colon on 04-11-2025 Urea nitrogen/Creatinine [Mass ratio] 20.2 mg/mg High 10-20 [facility] Basic Metabolic Profile (BMP )on 04-11-2025 BUN/CRE 20.2 RATIO High 10-20 [facility] Comment on above: Performed By: #### L 501.4021, L100.0100, L500.2500, L501.9100, L501.2450 ####[facility] [address] [place], [address] Calcium [Mass/Vol] 8.8 mg/dL Normal 7.6-11.0 [facility] Comment on above: Performed By: #### L 501.4021, L100.0100, L500.2500, L501.9100, L501.2450 ####[facility] [address] [place], [address] Chloride [Moles/Vol] 100 mmol/L Normal 98-108 [facility] Comment on above: Performed By: #### L 501.4021, L100.0100, L500.2500, L501.9100, L501.2450 ####[facility] [address] [place], [address] CO2 [Moles/Vol] 28.2 mmol/L Normal 21.0-32.0 [facility] Comment on above: Performed By: #### L 501.4021, L100.0100, L500.2500, L501.9100, L501.2450 ####[facility] [address] [place], [address] Creatinine [Mass/Vol] 0.53 mg/dL Low 0.70-1.20 [facility] Comment on above: Performed By: #### L 501.4021, L100.0100, L500.2500, L501.9100, L501.2450 ####[facility] [address] [place], [address] ECRCL 112.09 ml/min Normal 50-250 [facility] Comment on above: Performed By: #### L 501.4021, L100.0100, L500.2500, L501.9100, L501.2450 ####[facility] [address] [place], [address] GAP 16 High 5-15 [facility] Comment on above: Performed By: #### L 501.4021, L100.0100, L500.2500, L501.9100, L501.2450 ####[facility] [address] [place], [address] GFR/1.73 sq M.predicted among non-blacks MDRD (S/P/Bld) [Vol rate/Area] 114 mL/min/{1.73_m2} Normal >60 [facility] Comment on above: Result Comment: mL/m in/1.73m2 CKD-EPI Creatinine Equation (2020) Performed By: #### L 501.4021, L100.0100, L500.2500, L501.9100, L501.2450 ####[facility] [address] [place], [address] Glucose [Mass/Vol] 131 mg/dL High 70-99 [facility] Comment on above: Performed By: #### L 501.4021, L100.0100, L500.2500, L501.9100, L501.2450 ####[facility] [address] [place], [address] Potassium [Moles/Vol] 3.2 mmol/L Low 3.3-5.1 [facility] Comment on above: Performed By: #### L 501.4021, L100.0100, L500.2500, L501.9100, L501.2450 ####[facility] [address] [place], [address] Sodium [Moles/Vol] 144 mmol/L Normal 133-145 [facility] Comment on above: Performed By: #### L 501.4021, L100.0100, L500.2500, L501.9100, L501.2450 ####[facility] [address] [place], [address] Urea nitrogen [Mass/Vol] 11 mg/dL Normal 4-19 [facility] Comment on above: Performed By: #### L 501.4021, L100.0100, L500.2500, L501.9100, L501.2450 ####[facility] [address] [place], [address] Basophil percentageOrdered B y: Francisco Colon on 04-11-2025 Basophils/100 WBC (Bld) 1.2 % High 0-1 [facility] Bilirubin Test strip Ql (U)O rdered By: Francisco Colon on 04-11-2025 Bilirubin Ql (U) Negative Negative [facility] CBC W/Diff, Automatedon 03-29 Absolute Lymph 2.10 X10 3/uL Normal 0.83-4.51 [facility] Comment on above: Performed By: #### L 501.4021, L100.0100, L500.2500, L501.9100, L501.2450 ####[facility] [address] [place], [address] Absolute Neut 2.1 X10 3/uL Normal 2.0-7.7 [facility] Comment on above: Performed By: #### L 501.4021, L100.0100, L500.2500, L501.9100, L501.2450 ####[facility] [address] [place], [address] Basophils/100 WBC (Bld) 1.2 % High 0-1 [facility] Comment on above: Performed By: #### L 501.4021, L100.0100, L500.2500, L501.9100, L501.2450 ####[facility] [address] [place], [address] Eosinophils/100 WBC (Bld) 0.8 % Normal 0-5 [facility] Comment on above: Performed By: #### L 501.4021, L100.0100, L500.2500, L501.9100, L501.2450 ####[facility] [address] [place], [address] Erythrocyte distribution width (RBC) [Ratio] 13.5 % Normal 11.6-14.6 [facility] Comment on above: Performed By: #### L 501.4021, L100.0100, L500.2500, L501.9100, L501.2450 ####[facility] [address] [place], [address] Hematocrit (Bld) [Volume fraction] 37.7 % Normal 37-47 [facility] Comment on above: Performed By: #### L 501.4021, L100.0100, L500.2500, L501.9100, L501.2450 ####[facility] [address] [place], [address] Hemoglobin (Bld) [Mass/Vol] 13.5 g/dL Normal 12.0-15.0 [facility] Comment on above: Performed By: #### L 501.4021, L100.0100, L500.2500, L501.9100, L501.2450 ####[facility] [address] [place], [address] IG% 0.200 Normal 0.0-0.9 [facility] Comment on above: Result Comment: IG% - Immature Granulocytes (promyelocytes, myelocytes andmetamyelocytes) > 1% indicates that a LEFT SHIFT is Present. Performed By: #### L 501.4021, L100.0100, L500.2500, L501.9100, L501.2450 ####[facility] [address] [place], [address] Lymphocytes/100 WBC (Bld) 42.0 % High 19-41 [facility] Comment on above: Performed By: #### L 501.4021, L100.0100, L500.2500, L501.9100, L501.2450 ####[facility] [address] [place], [address] MCH (RBC) [Entitic mass] 37.4 pg High 27.0-32.0 [facility] Comment on above: Performed By: #### L 501.4021, L100.0100, L500.2500, L501.9100, L501.2450 ####[facility] [address] [place], [address] MCHC (RBC) [Mass/Vol] 35.8 g/dL Normal 32-36 [facility] Comment on above: Performed By: #### L 501.4021, L100.0100, L500.2500, L501.9100, L501.2450 ####[facility] [address] [place], [address] MCV (RBC) [Entitic vol] 104.4 fL High 81-99 [facility] Comment on above: Performed By: #### L 501.4021, L100.0100, L500.2500, L501.9100, L501.2450 ####[facility] [address] [place], [address] Monocytes/100 WBC (Bld) 13.2 % High 0-10 [facility] Comment on above: Performed By: #### L 501.4021, L100.0100, L500.2500, L501.9100, L501.2450 ####[facility] [address] [place], [address] Neutrophils/100 WBC (Bld) 42.6 % Low 47-70 [facility] Comment on above: Performed By: #### L 501.4021, L100.0100, L500.2500, L501.9100, L501.2450 ####[facility] [address] [place], [address] Nucleated RBC (Bld) [#/Vol] 0.4 10*3/uL Normal 0-5 [facility] Comment on above: Performed By: #### L 501.4021, L100.0100, L500.2500, L501.9100, L501.2450 ####[facility] [address] [place], [address] Platelet mean volume (Bld) [Entitic vol] 9.6 fL Normal 6.2-12.0 [facility] Comment on above: Performed By: #### L 501.4021, L100.0100, L500.2500, L501.9100, L501.2450 ####[facility] [address] [place], [address] Platelets (Bld) [#/Vol] 246 10*3/uL Normal 150-450 [facility] Comment on above: Performed By: #### L 501.4021, L100.0100, L500.2500, L501.9100, L501.2450 ####[facility] [address] [place], [address] RBC (Bld) [#/Vol] 3.61 10*6/uL Low 4.2-5.4 [facility] Comment on above: Performed By: #### L 501.4021, L100.0100, L500.2500, L501.9100, L501.2450 ####[facility] [address] [place], [address] RDW SD 51.4 fl High 35.1-43.9 [facility] Comment on above: Performed By: #### L 501.4021, L100.0100, L500.2500, L501.9100, L501.2450 ####[facility] [address] [place], [address] WBC (Bld) [#/Vol] 5.0 10*3/uL Normal 4.4-11.0 [facility] Comment on above: Performed By: #### L 501.4021, L100.0100, L500.2500, L501.9100, L501.2450 ####[facility] [address] [place], [address] Carbon dioxide, total [Moles /volume] in Central venous bloodOrdered By: Francisco Colon on 04-11-2025 CO2 [Moles/Vol] 28.2 mmol/L 21.0-32.0 [facility] Chest PA and Lateralon 04-11 Chest PA and Lateral Normal [facility] Chloride assayOrdered By: Peyman Colon on 04-11-2025 Chloride [Moles/Vol] 100 mmol/L 98-108 [facility] Emergency Department Summary on 04-11-2025 Emergency Department Summary Normal [facility] Eosinophil percentageOrdered By: Francisco Colon on 04-11-2025 Eosinophils/100 WBC (Bld) 0.8 % 0-5 [facility] Erythrocyte distribution wid th ratioOrdered By: Francisco Colon on 04-11-2025 Erythrocyte distribution width (RBC) [Ratio] 13.5 % 11.6-14.6 [facility] Erythrocyte distribution wid th standard deviationOrdered By: Francisco Colon on 04-11-2025 Erythrocyte distribution width (RBC) [Ratio] 51.4 fl High 35.1-43.9 [facility] Glomerular filtration rate ( GFR) estimation/1.73 sq m using serum, plasma, or whole bOrdered By: Francisco Colon on 04-11-2025 GFR/1.73 sq M.predicted among non-blacks MDRD (S/P/Bld) [Vol rate/Area] 114 mL/min/{1.73_m2} >60 [facility] Comment on above: mL/min/1.73m2 CKD-EP I Creatinine Equation (2020) Hematocrit Auto (Bld) [Volum e fraction]Ordered By: Francisco Colon on 04-11-2025 Hematocrit (Bld) [Volume fraction] 37.7 % 37-47 [facility] Hemoglobin measurementOrdere d By: Francisco Colon on 04-11-2025 Hemoglobin (Bld) [Mass/Vol] 13.5 g/dL 12.0-15.0 [facility] Immature granulocytes/100 WB C Auto (Bld)Ordered By: Francisco Colon on 04-11-2025 Immature granulocytes/100 WBC (Bld) 0.200 % 0.0-0.9 [facility] Comment on above: IG% - Immature Granu locytes (promyelocytes, myelocytes and metamyelocytes) > 1% indicates that a LEFT SHIFT is Present. Ketones Test strip Ql (U)Ord ered By: Francisco Colon on 04-11-2025 Ketones Ql (U) Negative Negative [facility] L501.4021on 04-11-2025 Trop T High Sen < 6 Normal <=14 [facility] Comment on above: Performed By: #### L 501.4021, L100.0100, L500.2500, L501.9100, L501.2450 ####[facility] [address] [place], [place], [address] Lipaseon 04-11-2025 Lipase [Catalytic activity/Vol] 70 U/L Normal - [facility] Comment on above: Result Comment: Lucie schultz note:LIPASE revised reference range effective 23.New Lipase methodology. Expected to produce lower valuesthan the previous assay method.NEW Reference Range: 13 - 75 U/L Performed By: #### L 501.4021, L100.0100, L500.2500, L501.9100, L501.2450 ####[facility] [address] [place], [place], [id number] Lipase measurementOrdered By : Francisco Colon on 04-11-2025 Lipase [Catalytic activity/Vol] 70 U/L - [facility] Comment on above: Please note:LIPASE r evised reference range effective 23. New Lipase methodology. Expected to produce lower values than the previous assay method. NEW Reference Range: 13 - 75 U/L MCV (mean corpuscular volume ) determinationOrdered By: Francisco Colon on 04-11-2025 MCV (RBC) [Entitic vol] 104.4 fL High 81-99 [facility] Mean corpuscular hemoglobin (MCH) determinationOrdered By: Francisco Colon on 04-11-2025 MCH (RBC) [Entitic mass] 37.4 pg High 27.0-32.0 [facility] Mean corpuscular hemoglobin concentration (MCHC) determinationOrdered By: Francisco Colon on 04-11-2025 MCHC (RBC) [Mass/Vol] 35.8 g/dL 32-36 [facility] Mean platelet volume determi nationOrdered By: Francisco Colon on 04-11-2025 Platelet mean volume (Bld) [Entitic vol] 9.6 fL 6.2-12.0 [facility] Microscopic analysis of urin e for red blood cells (RBC)Ordered By: Francisco Colon on 04-11-2025 Microscopic analysis of urine for red blood cells (RBC) 0 SEEN /hpf 0-5 [facility] Monocyte percentageOrdered B y: Francisco Colon on 04-11-2025 Monocytes/100 WBC (Bld) 13.2 % High 0-10 [facility] Mucus LM Ql (Urine sed)Order ed By: Francisco Colon on 04-11-2025 Mucus Ql (Urine sed) 0 SEEN /hpf [facility] Neutrophil percentageOrdered By: Francisco Colon on 04-11-2025 Neutrophils/100 WBC (Bld) 42.6 % Low 47-70 [facility] Nitrite Test strip Ql (U)Ord ered By: Francisco Colon on 04-11-2025 Nitrite Ql (U) Negative Negative [facility] Nucleated red blood cell per centageOrdered By: Francisco Colon on 04-11-2025 Nucleated RBC/100 WBC (Bld) [Ratio] 0.4 % 0-5 [facility] Platelet countOrdered By: Peyman Colon on 04-11-2025 Platelets (Bld) [#/Vol] 246 10*3/uL 150-450 [facility] Potassium measurement (mass/ volume)Ordered By: Francisco Colon on 04-11-2025 Potassium (Unsp spec) [Mass/Vol] 3.2 mmol/L Low 3.3-5.1 [facility] Protein Test strip Ql (U)Ord ered By: Francisco Colon on 04-11-2025 Protein Ql (U) 15 mg/dl High Negative [facility] RBC Auto (Bld) [#/Vol]Ordere d By: Francisco Colon on 04-11-2025 RBC (Bld) [#/Vol] 3.61 10*6/uL Low 4.2-5.4 [facility] Serum creatinine measurement (mass/volume)Ordered By: Francisco Colon on 04-11-2025 Creatinine [Mass/Vol] 0.53 mg/dL Low 0.70-1.20 [facility] Serum glucose measurement (m ass/volume)Ordered By: Francisco Colon on 04-11-2025 Glucose [Mass/Vol] 131 mg/dL High 70-99 [facility] Serum or plasma calcium alphonso urement (mass/volume)Ordered By: Francisco Colon on 04-11-2025 Calcium [Mass/Vol] 8.8 mg/dL 7.6-11.0 [facility] Serum or plasma ethanol alphonso urement (mass/volume)Ordered By: Francisco Colon on 04-11-2025 Ethanol [Mass/Vol] 328.0 mg/dL High <10.1 [facility] Comment on above: Critical Result(s) C alled at:2346 by: LUISITO SONI TO CELINA LUJAN Results read back by same.This test is for medical purposes only. The legal definition of intoxication varies according to local law. Serum or plasma urea nitroge n measurement (mass/volume)Ordered By: Francisco Colon on 04-11-2025 Urea nitrogen [Mass/Vol] 11 mg/dL 4-19 [facility] Sodium levelOrdered By: Francisco Colon on 04-11-2025 Sodium [Moles/Vol] 144 mmol/L 133-145 [facility] Squamous epithelial cells de tection in urine sediment by light microscopyOrdered By: Francisco Colon on 04-11-2025 Epithelial cells.squamous LM Ql (Urine sed) 0 SEEN /hpf 5-10 [facility] Troponin T.cardiac [Mass/vol ume] in Serum or Plasma by High sensitivity methodOrdered By: Francisco Colon on 04-11-2025 Troponin T.cardiac High sensitivity method [Mass/Vol] < 6 ng/L <14 [facility] Urinalysis, Completeon 04-11 BACTERIA 0 SEEN Normal None Seen [facility] Comment on above: Order Comment: [place] CTOR TO SPECIFY Performed By: #### L 400.0001 ####[facility] [address] [place], [address] EPI,SQUAMOUS 0 SEEN Normal 5-10 [facility] Comment on above: Order Comment: [place] CTOR TO SPECIFY Performed By: #### L 400.0001 ####[facility] [address] [place], [address] Mucus Ql (Urine sed) 0 SEEN Normal [facility] Comment on above: Order Comment: [place] CTOR TO SPECIFY Performed By: #### L 400.0001 ####[facility] [address] [place], [address] RBC 0 SEEN Normal 0-5 [facility] Comment on above: Order Comment: [place] CTOR TO SPECIFY Performed By: #### L 400.0001 ####[facility] [address] [place], [address] WBC 0 SEEN Normal 0-5 [facility] Comment on above: Order Comment: [place] CTOR TO SPECIFY Performed By: #### L 400.0001 ####[facility] [address] [place], [address] Urine clarityOrdered By: Rommel Colon on 04-11-2025 Clarity (U) Clear Clear [facility] Urine color determinationOrd ered By: Francisco Colon on 04-11-2025 Color (U) Yellow Yellow [facility] Urine glucose detectionOrder ed By: Francisco Colon on 04-11-2025 Glucose Ql (U) Normal mg/dl Normal [facility] Urine leukocyte esterase det ection by dipstickOrdered By: Francisco Colon on 04-11-2025 Leukocyte esterase Test strip Ql (U) Negative Negative [facility] Urine pHOrdered By: Francisco Rosenberg ghbecky on 04-11-2025 pH (U) 7.0 [pH] 5.0 - 8.0 [facility] Urine sediment bacteria coun t by microscopy (number/high power field)Ordered By: Francisco Colon on 04-11-2025 Bacteria LM.HPF (Urine sed) [#/Area] 0 /[HPF] None Seen [facility] Urine specific gravity measu rementOrdered By: Francisco Colon on 04-11-2025 Specific gravity (U) [Rel density] 1.010 1.002-1.030 [facility] Urine urobilinogen measureme ntOrdered By: Francisco Colon on 04-11-2025 Urobilinogen Ql (U) Normal mg/dl Normal [facility] White blood cell (WBC) count Ordered By: Francisco Colon on 04-11-2025 WBC (Bld) [#/Vol] 5.0 10*3/uL 4.4-11.0 [facility] White blood cell countOrdere d By: Francisco Colon on 04-11-2025 White blood cell count 0 SEEN /hpf 0-5 [facility] 12 Lead EKGon 04-04-2025 12 Lead EKG Normal [facility] Abdomen/Pelvis W IV Cont ONL Yon 04-04-2025 Abdomen/Pelvis W IV Cont ONLY Normal [facility] Absolute lymphocyte countOrd ered By: ED PROVIDER on 04-04-2025 Lymphocytes Auto (Unsp spec) [#/Vol] 1.23 10*3/uL 0.83-4.51 [facility] Absolute neutrophil countOrd ered By: ED PROVIDER on 04-04-2025 Neutrophils (Bld) [#/Vol] 6.8 10*3/uL 2.0-7.7 [facility] Anion gap in Serum or Plasma Ordered By: Imani Knight on 04-04-2025 Anion gap [Moles/Vol] 18 mmol/L High 5-15 [facility] Automated lymphocyte count a s percentage of total leukocytesOrdered By: ED PROVIDER on 04-04-2025 Lymphocytes/100 WBC Auto (Unsp spec) 14.0 % Low 19-41 [facility] BUN/creatinine ratioOrdered By: Imani Knight on 04-04-2025 Urea nitrogen/Creatinine [Mass ratio] 8.7 mg/mg Low 10-20 [facility] Basic Metabolic Profile (BMP )on 04-04-2025 BUN/CRE 8.7 RATIO Low 10-20 [facility] Comment on above: Performed By: #### L 500.2500, L501.4021, L100.0100 ####[facility] [address] [place], [address] Calcium [Mass/Vol] 8.4 mg/dL Normal 7.6-11.0 [facility] Comment on above: Performed By: #### L 500.2500, L501.4021, L100.0100 ####[facility] [address] [place], [address] Chloride [Moles/Vol] 94 mmol/L Low 98-108 [facility] Comment on above: Performed By: #### L 500.2500, L501.4021, L100.0100 ####[facility] [address] [place], [address] CO2 [Moles/Vol] 27.3 mmol/L Normal 21.0-32.0 [facility] Comment on above: Performed By: #### L 500.2500, L501.4021, L100.0100 ####[facility] [address] [place], [address] Creatinine [Mass/Vol] 0.55 mg/dL Low 0.70-1.20 [facility] Comment on above: Performed By: #### L 500.2500, L501.4021, L100.0100 ####[facility] [address] [place], [address] GAP 18 High 5-15 [facility] Comment on above: Performed By: #### L 500.2500, L501.4021, L100.0100 ####[facility] [address] [place], [address] GFR/1.73 sq M.predicted among non-blacks MDRD (S/P/Bld) [Vol rate/Area] 113 mL/min/{1.73_m2} Normal >60 [facility] Comment on above: Result Comment: mL/m in/1.73m2 CKD-EPI Creatinine Equation (2020) Performed By: #### L 500.2500, L501.4021, L100.0100 ####[facility] [address] [place], [address] Glucose [Mass/Vol] 131 mg/dL High 70-99 [facility] Comment on above: Performed By: #### L 500.2500, L501.4021, L100.0100 ####[facility] [address] [place], [address] Potassium [Moles/Vol] 2.9 mmol/L Low 3.3-5.1 [facility] Comment on above: Performed By: #### L 500.2500, L501.4021, L100.0100 ####[facility] [address] [place], [address] Sodium [Moles/Vol] 139 mmol/L Normal 133-145 [facility] Comment on above: Performed By: #### L 500.2500, L501.4021, L100.0100 ####[facility] [address] [place], [address] Urea nitrogen [Mass/Vol] 5 mg/dL Normal 4-19 [facility] Comment on above: Performed By: #### L 500.2500, L501.4021, L100.0100 ####[facility] [address] [place], [address] Basophil percentageOrdered B y: ED PROVIDER on 04-04-2025 Basophils/100 WBC (Bld) 0.7 % 0-1 [facility] Bilirubin directOrdered By: Imani Knight on 04-04-2025 Bilirubin.direct [Mass/Vol] 0.67 mg/dL High 0.00-0.30 [facility] Bilirubin, totalOrdered By: Imani Knight on 04-04-2025 Bilirubin [Mass/Vol] 1.26 mg/dL 0.00-1.30 [facility] CBC W/Diff, Automatedon Absolute Lymph 1.23 X10 3/uL Normal 0.83-4.51 [facility] Comment on above: Performed By: #### L 500.2500, L501.4021, L100.0100 ####[facility] [address] [place], [address] Absolute Neut 6.8 X10 3/uL Normal 2.0-7.7 [facility] Comment on above: Performed By: #### L 500.2500, L501.4021, L100.0100 ####[facility] [address] [place], [address] Basophils/100 WBC (Bld) 0.7 % Normal 0-1 [facility] Comment on above: Performed By: #### L 500.2500, L501.4021, L100.0100 ####[facility] [address] [place], [address] Eosinophils/100 WBC (Bld) 0.2 % Normal 0-5 [facility] Comment on above: Performed By: #### L 500.2500, L501.4021, L100.0100 ####[facility] [address] [place], [address] Erythrocyte distribution width (RBC) [Ratio] 13.5 % Normal 11.6-14.6 [facility] Comment on above: Performed By: #### L 500.2500, L501.4021, L100.0100 ####[facility] [address] [place], [address] Hematocrit (Bld) [Volume fraction] 40.3 % Normal 37-47 [facility] Comment on above: Performed By: #### L 500.2500, L501.4021, L100.0100 ####[facility] [address] [place], [address] Hemoglobin (Bld) [Mass/Vol] 14.3 g/dL Normal 12.0-15.0 [facility] Comment on above: Performed By: #### L 500.2500, L501.4021, L100.0100 ####[facility] [address] [place], [address] IG% 0.300 Normal 0.0-0.9 [facility] Comment on above: Result Comment: IG% - Immature Granulocytes (promyelocytes, myelocytes andmetamyelocytes) > 1% indicates that a LEFT SHIFT is Present. Performed By: #### L 500.2500, L501.4021, L100.0100 ####[facility] [address] [place], [address] Lymphocytes/100 WBC (Bld) 14.0 % Low 19-41 [facility] Comment on above: Performed By: #### L 500.2500, L501.4021, L100.0100 ####[facility] [address] [place], [address] MCH (RBC) [Entitic mass] 35.4 pg High 27.0-32.0 [facility] Comment on above: Performed By: #### L 500.2500, L501.4021, L100.0100 ####[facility] [address] [place], [address] MCHC (RBC) [Mass/Vol] 35.5 g/dL Normal 32-36 [facility] Comment on above: Performed By: #### L 500.2500, L501.4021, L100.0100 ####[facility] [address] [place], [address] MCV (RBC) [Entitic vol] 99.8 fL High 81-99 [facility] Comment on above: Performed By: #### L 500.2500, L501.4021, L100.0100 ####[facility] [address] [place], [address] Monocytes/100 WBC (Bld) 7.8 % Normal 0-10 [facility] Comment on above: Performed By: #### L 500.2500, L501.4021, L100.0100 ####[facility] [address] [place], [address] Neutrophils/100 WBC (Bld) 77.0 % High 47-70 [facility] Comment on above: Performed By: #### L 500.2500, L501.4021, L100.0100 ####[facility] [address] [place], [address] Nucleated RBC (Bld) [#/Vol] 0.2 10*3/uL Normal 0-5 [facility] Comment on above: Performed By: #### L 500.2500, L501.4021, L100.0100 ####[facility] [address] [place], [address] Platelet mean volume (Bld) [Entitic vol] 10.0 fL Normal 6.2-12.0 [facility] Comment on above: Performed By: #### L 500.2500, L501.4021, L100.0100 ####[facility] [address] [place], [address] Platelets (Bld) [#/Vol] 186 10*3/uL Normal 150-450 [facility] Comment on above: Performed By: #### L 500.2500, L501.4021, L100.0100 ####[facility] [address] [place], [address] RBC (Bld) [#/Vol] 4.04 10*6/uL Low 4.2-5.4 [facility] Comment on above: Performed By: #### L 500.2500, L501.4021, L100.0100 ####[facility] [address] [place], [address] RDW SD 50.3 fl High 35.1-43.9 [facility] Comment on above: Performed By: #### L 500.2500, L501.4021, L100.0100 ####[facility] [address] [place], [address] WBC (Bld) [#/Vol] 8.8 10*3/uL Normal 4.4-11.0 [facility] Comment on above: Performed By: #### L 500.2500, L501.4021, L100.0100 ####[facility] [address] [place], [address] Carbon dioxide, total [Moles /volume] in Central venous bloodOrdered By: Imani Knight on 04-04-2025 CO2 [Moles/Vol] 27.3 mmol/L 21.0-32.0 [facility] Chest 1 View (Portable)on Chest 1 View (Portable) Normal [facility] Chloride assayOrdered By: Nash Knight on 04-04-2025 Chloride [Moles/Vol] 94 mmol/L Low 98-108 [facility] Emergency Department Summary on 04-04-2025 Emergency Department Summary Normal [facility] Eosinophil percentageOrdered By: ED PROVIDER on 04-04-2025 Eosinophils/100 WBC (Bld) 0.2 % 0-5 [facility] Erythrocyte distribution wid th ratioOrdered By: ED PROVIDER on 04-04-2025 Erythrocyte distribution width (RBC) [Ratio] 13.5 % 11.6-14.6 [facility] Erythrocyte distribution wid th standard deviationOrdered By: ED PROVIDER on 04-04-2025 Erythrocyte distribution width (RBC) [Ratio] 50.3 fl High 35.1-43.9 [facility] Glomerular filtration rate ( GFR) estimation/1.73 sq m using serum, plasma, or whole bOrdered By: Imani Knight on 04-04-2025 GFR/1.73 sq M.predicted among non-blacks MDRD (S/P/Bld) [Vol rate/Area] 113 mL/min/{1.73_m2} >60 [facility] Comment on above: mL/min/1.73m2 CKD-EP I Creatinine Equation (2020) Hematocrit Auto (Bld) [Volum e fraction]Ordered By: ED PROVIDER on 04-04-2025 Hematocrit (Bld) [Volume fraction] 40.3 % 37-47 [facility] Hemoglobin measurementOrdere d By: ED PROVIDER on 04-04-2025 Hemoglobin (Bld) [Mass/Vol] 14.3 g/dL 12.0-15.0 [facility] Immature granulocytes/100 WB C Auto (Bld)Ordered By: ED PROVIDER on 04-04-2025 Immature granulocytes/100 WBC (Bld) 0.300 % 0.0-0.9 [facility] Comment on above: IG% - Immature Granu locytes (promyelocytes, myelocytes and metamyelocytes) > 1% indicates that a LEFT SHIFT is Present. L499.0042on 04-04-2025 Trop T High Sen < 6 Normal <=14 [facility] Comment on above: Performed By: #### L 499.0042 ####[facility] [address] [place], [address] L499.0043on 04-04-2025 Trop T High Sen Normal <=14 [facility] Comment on above: Result Comment: CHUY ENT DISCHARGED Performed By: #### L 499.0043 ####[facility] [address] [place], [address] L501.4021on 04-04-2025 Trop T High Sen < 6 Normal <=14 [facility] Comment on above: Performed By: #### L 500.2500, L501.4021, L100.0100 ####[facility] [address] [place], [address] Laboratory - Chemistry and C hemistry - challengeOrdered By: Imani Knight on 05-07-2025 AST [Catalytic activity/Vol] 75 U/L High <32 [facility] Lipaseon 04-04-2025 Lipase [Catalytic activity/Vol] 26 U/L Normal 13-75 [facility] Comment on above: Result Comment: Lucie schultz note:LIPASE revised reference range effective 23.New Lipase methodology. Expected to produce lower valuesthan the previous assay method.NEW Reference Range: 13 - 75 U/L Performed By: #### L 500.3400, L501.5200, L501.2450 ####[facility] [address] [place], [address] Lipase measurementOrdered By : Imani Knight on 04-04-2025 Lipase [Catalytic activity/Vol] 26 U/L 13-75 [facility] Comment on above: Please note:LIPASE r evised reference range effective 23. New Lipase methodology. Expected to produce lower values than the previous assay method. NEW Reference Range: 13 - 75 U/L Liver Profileon 04-04-2025 Albumin [Mass/Vol] 4.1 g/dL Normal 3.5-5.0 [facility] Comment on above: Performed By: #### L 500.3400, L501.5200, L501.2450 ####[facility] [address] [place], [address] ALK PHOS 91 U/L Normal 35-104 [facility] Comment on above: Performed By: #### L 500.3400, L501.5200, L501.2450 ####[facility] [address] [place], [address] ALT [Catalytic activity/Vol] 44 U/L High <=34 [facility] Comment on above: Performed By: #### L 500.3400, L501.5200, L501.2450 ####[facility] [address] [place], [address] AST [Catalytic activity/Vol] 75 U/L High <=31 [facility] Comment on above: Performed By: #### L 500.3400, L501.5200, L501.2450 ####[facility] [address] [place], [address] Bilirubin [Mass/Vol] 1.26 mg/dL Normal 0.00-1.30 [facility] Comment on above: Performed By: #### L 500.3400, L501.5200, L501.2450 ####[facility] [address] [place], [address] Bilirubin.direct [Mass/Vol] 0.67 mg/dL High 0.00-0.30 [facility] Comment on above: Performed By: #### L 500.3400, L501.5200, L501.2450 ####[facility] [address] [place], [address] Globulin (S) [Mass/Vol] 3.3 g/dL Normal 2.2-4.2 [facility] Comment on above: Performed By: #### L 500.3400, L501.5200, L501.2450 ####[facility] [address] [place], [address] T PROT 7.3 g/dL Normal 5.9-8.4 [facility] Comment on above: Performed By: #### L 500.3400, L501.5200, L501.2450 ####[facility] [address] [place], [address] MCV (mean corpuscular volume ) determinationOrdered By: ED PROVIDER on 04-04-2025 MCV (RBC) [Entitic vol] 99.8 fL High 81-99 [facility] Magnesiumon 04-04-2025 Magnesium [Mass/Vol] 0.6 mg/dL Invalid Interpretation Code 1.5-2.2 [facility] Comment on above: Result Comment: Crit ical Result(s) Called at: 04/04/2025-12:09 by: Francesco Fairchild.??Results read back by same. Performed By: #### L 500.3400, L501.5200, L501.2450 ####[facility] [address] [place], [address] Magnesium measurement (mass/ volume)Ordered By: Imani Knight on 04-04-2025 Magnesium (Unsp spec) [Mass/Vol] 0.6 mg/dL Low 1.5-2.2 [facility] Comment on above: Critical Result(s) C alled at: 04/04/2025-12:09 by: Ru Null to Meredith Fairchild. Results read back by same. Mean corpuscular hemoglobin (MCH) determinationOrdered By: ED PROVIDER on 04-04-2025 MCH (RBC) [Entitic mass] 35.4 pg High 27.0-32.0 [facility] Mean corpuscular hemoglobin concentration (MCHC) determinationOrdered By: ED PROVIDER on 04-04-2025 MCHC (RBC) [Mass/Vol] 35.5 g/dL 32-36 [facility] Mean platelet volume determi nationOrdered By: ED PROVIDER on 04-04-2025 Platelet mean volume (Bld) [Entitic vol] 10.0 fL 6.2-12.0 [facility] Monocyte percentageOrdered B y: ED PROVIDER on 04-04-2025 Monocytes/100 WBC (Bld) 7.8 % 0-10 [facility] Neutrophil percentageOrdered By: ED PROVIDER on 04-04-2025 Neutrophils/100 WBC (Bld) 77.0 % High 47-70 [facility] Nucleated red blood cell per centageOrdered By: ED PROVIDER on 04-04-2025 Nucleated RBC/100 WBC (Bld) [Ratio] 0.2 % 0-5 [facility] Platelet countOrdered By: ED PROVIDER on 04-04-2025 Platelets (Bld) [#/Vol] 186 10*3/uL 150-450 [facility] Potassium measurement (mass/ volume)Ordered By: Imani Knight on 04-04-2025 Potassium (Unsp spec) [Mass/Vol] 2.9 mmol/L Low 3.3-5.1 [facility] RBC Auto (Bld) [#/Vol]Ordere d By: ED PROVIDER on 04-04-2025 RBC (Bld) [#/Vol] 4.04 10*6/uL Low 4.2-5.4 [facility] Serum creatinine measurement (mass/volume)Ordered By: Imani Knight on 04-04-2025 Creatinine [Mass/Vol] 0.55 mg/dL Low 0.70-1.20 [facility] Serum globulin measurementOr dered By: Imani Knight on 04-04-2025 Globulin (S) [Mass/Vol] 3.3 g/dL 2.2-4.2 [facility] Serum glucose measurement (m ass/volume)Ordered By: Imani Knight on 04-04-2025 Glucose [Mass/Vol] 131 mg/dL High 70-99 [facility] Serum or plasma alanine wilkerson otransferase (ALT) measurementOrdered By: Imani Knight on 04-04-2025 ALT [Catalytic activity/Vol] 44 U/L High <35 [facility] Serum or plasma albumin alphonso urement (mass/volume)Ordered By: Imani Knight on 04-04-2025 Albumin [Mass/Vol] 4.1 g/dL 3.5-5.0 [facility] Serum or plasma alkaline trinity sphatase measurementOrdered By: Imani Knight on 04-04-2025 ALP [Catalytic activity/Vol] 91 U/L 35-104 [facility] Serum or plasma calcium alphonso urement (mass/volume)Ordered By: Imani Knight on 04-04-2025 Calcium [Mass/Vol] 8.4 mg/dL 7.6-11.0 [facility] Serum or plasma urea nitroge n measurement (mass/volume)Ordered By: Imani Knight on 04-04-2025 Urea nitrogen [Mass/Vol] 5 mg/dL 4-19 [facility] Sodium levelOrdered By: Radha Knight on 04-04-2025 Sodium [Moles/Vol] 139 mmol/L 133-145 [facility] Total proteinOrdered By: Gwen Knight on 04-04-2025 Protein [Mass/Vol] 7.3 g/dL 5.9-8.4 [facility] Troponin T.cardiac [Mass/vol ume] in Serum or Plasma by High sensitivity methodOrdered By: Imani Knight on 04-04-2025 Troponin T.cardiac High sensitivity method [Mass/Vol] < 6 ng/L <14 [facility] Troponin T.cardiac High sensitivity method [Mass/Vol] < 6 ng/L <14 [facility] White blood cell (WBC) count Ordered By: ED PROVIDER on 04-04-2025 WBC (Bld) [#/Vol] 8.8 10*3/uL 4.4-11.0 [facility] 12 Lead EKGon 11-12-2024 12 Lead EKG Normal [facility] Basic Metabolic Profile (BMP )on 11-12-2024 BUN/CRE 23.8 RATIO High 10-20 [facility] Comment on above: Order Comment: 1Y Performed By: #### L 500.2500, L100.0100, L501.5425, L300.8000, L501.5200, L700.6800 ####[facility] [address] [place], [address] CA,Total 8.1 mg/dL Low 8.5-10.1 [facility] Comment on above: Order Comment: 1Y Performed By: #### L 500.2500, L100.0100, L501.5425, L300.8000, L501.5200, L700.6800 ####[facility] [address] [place], [address] Chloride [Moles/Vol] 99 mmol/L Normal 98-107 [facility] Comment on above: Order Comment: 1Y Performed By: #### L 500.2500, L100.0100, L501.5425, L300.8000, L501.5200, L700.6800 ####[facility] [address] [place], [address] CO2 [Moles/Vol] 27.0 mmol/L Normal 21.0-32.0 [facility] Comment on above: Order Comment: 1Y Performed By: #### L 500.2500, L100.0100, L501.5425, L300.8000, L501.5200, L700.6800 ####[facility] [address] [place], [address] Creatinine [Mass/Vol] 0.59 mg/dL Normal 0.55-1.02 [facility] Comment on above: Order Comment: 1Y Result Comment: The validity of the calculated GFR GFRAA in patients over70 years has not been determined. Clinical correlation isessential. Performed By: #### L 500.2500, L100.0100, L501.5425, L300.8000, L501.5200, L700.6800 ####[facility] [address] [place], [address] ECRCL 112.29 ml/min Normal [facility] Comment on above: Order Comment: 1Y Performed By: #### L 500.2500, L100.0100, L501.5425, L300.8000, L501.5200, L700.6800 ####[facility] [address] [place], [address] EST GFR - AA 140 mL/min Normal >60 [facility] Comment on above: Order Comment: 1Y Result Comment: Afri can Bulgarian GFR Calc Performed By: #### L 500.2500, L100.0100, L501.5425, L300.8000, L501.5200, L700.6800 ####[facility] [address] [place], [address] GAP 9 Normal 5-15 [facility] Comment on above: Order Comment: 1Y Performed By: #### L 500.2500, L100.0100, L501.5425, L300.8000, L501.5200, L700.6800 ####[facility] [address] [place], [address] GFR/1.73 sq M.predicted among non-blacks MDRD (S/P/Bld) [Vol rate/Area] 116 mL/min/{1.73_m2} Normal >60 [facility] Comment on above: Order Comment: 1Y Result Comment: Non- GFR Calc Performed By: #### L 500.2500, L100.0100, L501.5425, L300.8000, L501.5200, L700.6800 ####[facility] [address] [place], [address] Glucose [Mass/Vol] 131 mg/dL High 74-106 [facility] Comment on above: Order Comment: 1Y Result Comment: Fast ing Glucose result greater than or equal to 126 mg/dLsuggests DIABETES MELLITUS per A.D.A. criteria. Performed By: #### L 500.2500, L100.0100, L501.5425, L300.8000, L501.5200, L700.6800 ####[facility] [address] [place], [address] Potassium [Moles/Vol] 3.7 mmol/L Normal 3.5-5.1 [facility] Comment on above: Order Comment: 1Y Performed By: #### L 500.2500, L100.0100, L501.5425, L300.8000, L501.5200, L700.6800 ####[facility] [address] [place], [address] Sodium [Moles/Vol] 135 mmol/L Low 136-145 [facility] Comment on above: Order Comment: 1Y Performed By: #### L 500.2500, L100.0100, L501.5425, L300.8000, L501.5200, L700.6800 ####[facility] [address] [place], [address] Urea nitrogen [Mass/Vol] 14 mg/dL Normal 7-18 [facility] Comment on above: Order Comment: 1Y Performed By: #### L 500.2500, L100.0100, L501.5425, L300.8000, L501.5200, L700.6800 ####[facility] [address] [place], [address] CBC W/Diff, Automatedon 12 Absolute Lymph 1.29 X10 3/uL Normal 0.83-4.51 [facility] Comment on above: Performed By: #### L 500.2500, L100.0100, L501.5425, L300.8000, L501.5200, L700.6800 ####[facility] [address] [place], [address] Absolute Neut 6.5 X10 3/uL Normal 2.0-7.7 [facility] Comment on above: Performed By: #### L 500.2500, L100.0100, L501.5425, L300.8000, L501.5200, L700.6800 ####[facility] [address] [place], [address] Basophils/100 WBC (Bld) 0.5 % Normal 0-1 [facility] Comment on above: Performed By: #### L 500.2500, L100.0100, L501.5425, L300.8000, L501.5200, L700.6800 ####[facility] [address] [place], [address] Eosinophils/100 WBC (Bld) 1.2 % Normal 0-5 [facility] Comment on above: Performed By: #### L 500.2500, L100.0100, L501.5425, L300.8000, L501.5200, L700.6800 ####[facility] [address] [place], [address] Erythrocyte distribution width (RBC) [Ratio] 13.1 % Normal 11.6-14.6 [facility] Comment on above: Performed By: #### L 500.2500, L100.0100, L501.5425, L300.8000, L501.5200, L700.6800 ####[facility] [address] [place], [address] Hematocrit (Bld) [Volume fraction] 37.7 % Normal 37-47 [facility] Comment on above: Performed By: #### L 500.2500, L100.0100, L501.5425, L300.8000, L501.5200, L700.6800 ####[facility] [address] [place], [address] Hemoglobin (Bld) [Mass/Vol] 12.9 g/dL Normal 12.0-15.0 [facility] Comment on above: Performed By: #### L 500.2500, L100.0100, L501.5425, L300.8000, L501.5200, L700.6800 ####[facility] [address] [place], [address] IG% 0.200 Normal 0.0-0.9 [facility] Comment on above: Result Comment: IG% - Immature Granulocytes (promyelocytes, myelocytes andmetamyelocytes) > 1% indicates that a LEFT SHIFT is Present. Performed By: #### L 500.2500, L100.0100, L501.5425, L300.8000, L501.5200, L700.6800 ####[facility] [address] [place], [address] Lymphocytes/100 WBC (Bld) 15.1 % Low 19-41 [facility] Comment on above: Performed By: #### L 500.2500, L100.0100, L501.5425, L300.8000, L501.5200, L700.6800 ####[facility] [address] [place], [address] MCH (RBC) [Entitic mass] 33.7 pg High 27.0-32.0 [facility] Comment on above: Performed By: #### L 500.2500, L100.0100, L501.5425, L300.8000, L501.5200, L700.6800 ####[facility] [address] [place], [address] MCHC (RBC) [Mass/Vol] 34.2 g/dL Normal 32-36 [facility] Comment on above: Performed By: #### L 500.2500, L100.0100, L501.5425, L300.8000, L501.5200, L700.6800 ####[facility] [address] [place], [address] MCV (RBC) [Entitic vol] 98.4 fL Normal 81-99 [facility] Comment on above: Performed By: #### L 500.2500, L100.0100, L501.5425, L300.8000, L501.5200, L700.6800 ####[facility] [address] [place], [address] Monocytes/100 WBC (Bld) 6.9 % Normal 0-10 [facility] Comment on above: Performed By: #### L 500.2500, L100.0100, L501.5425, L300.8000, L501.5200, L700.6800 ####[facility] [address] [place], [address] Neutrophils/100 WBC (Bld) 76.1 % High 47-70 [facility] Comment on above: Performed By: #### L 500.2500, L100.0100, L501.5425, L300.8000, L501.5200, L700.6800 ####[facility] [address] [place], [address] Nucleated RBC (Bld) [#/Vol] 0 10*3/uL Normal 0-5 [facility] Comment on above: Performed By: #### L 500.2500, L100.0100, L501.5425, L300.8000, L501.5200, L700.6800 ####[facility] [address] [place], [address] Platelet mean volume (Bld) [Entitic vol] 9.2 fL Normal 6.2-12.0 [facility] Comment on above: Performed By: #### L 500.2500, L100.0100, L501.5425, L300.8000, L501.5200, L700.6800 ####[facility] [address] [place], [address] Platelets (Bld) [#/Vol] 211 10*3/uL Normal 150-450 [facility] Comment on above: Performed By: #### L 500.2500, L100.0100, L501.5425, L300.8000, L501.5200, L700.6800 ####[facility] [address] [place], [address] RBC (Bld) [#/Vol] 3.83 10*6/uL Low 4.2-5.4 [facility] Comment on above: Performed By: #### L 500.2500, L100.0100, L501.5425, L300.8000, L501.5200, L700.6800 ####[facility] [address] [place], [address] RDW SD 46.6 fl High 35.1-43.9 [facility] Comment on above: Performed By: #### L 500.2500, L100.0100, L501.5425, L300.8000, L501.5200, L700.6800 ####[facility] [address] [place], [address] WBC (Bld) [#/Vol] 8.6 10*3/uL Normal 4.4-11.0 [facility] Comment on above: Performed By: #### L 500.2500, L100.0100, L501.5425, L300.8000, L501.5200, L700.6800 ####[facility] [address] [place], [place], [id number] CTA Chest W/WO Contraston CTA Chest W/WO Contrast Normal [facility] Chest 1 View (Portable)on Chest 1 View (Portable) Normal [facility] D-Dimer Quantitative (DVT/PE )on 11-12-2024 D-DIMER QUANT 0.74 FEU/ug/m Invalid Interpretation Code 0.27-0.49 [facility] Comment on above: Order Comment: CRITI FLORECITA VALUE CALLED TO /15/24 1114 Priti Queen.RESULTS READ BACK BY same. Result Comment: D-Di clive ELEVATED (>0.49): Additional studies and clinicalassessments are indicated to conclude diagnosis of:Deep Vein Thrombosis (DVT) or Pulmonary Embolism (PE) Performed By: #### L 500.2500, L100.0100, L501.5425, L300.8000, L501.5200, L700.6800 ####[facility] [address] [place], [address] Emergency Department Summary on 11-12-2024 Emergency Department Summary Normal [facility] L501.4020on 11-12-2024 TROPONIN-I HS 6 pg/mL Normal 3.0-54.0 [facility] Comment on above: Result Comment: Plea Note: New Test Units and Gender Specific Reference Ranges. For more information see Policy Stat Procedure [place] High Sensitivity Troponin (TNIH) and attachments. Performed By: #### L 501.4020 ####[facility] [address] [place], [address] L501.5425on 11-12-2024 TROPONIN-I HS 6 pg/mL Normal 3.0-54.0 [facility] Comment on above: Order Comment: 1Y Result Comment: Lucie schultz Note: New Test Units and Gender Specific Reference Ranges. For more information see Policy Stat Procedure [place] High Sensitivity Troponin (TNIH) and attachments. Performed By: #### L 500.2500, L100.0100, L501.5425, L300.8000, L501.5200, L700.6800 ####[facility] [address] [place], [address] Magnesiumon 11-12-2024 Magnesium [Mass/Vol] 1.1 mg/dL Low 1.6-2.6 [facility] Comment on above: Order Comment: 1Y Performed By: #### L 500.2500, L100.0100, L501.5425, L300.8000, L501.5200, L700.6800 ####[facility] [address] [place], [place], [address] ,Serum,hCG Quali.on 11-12-2024 HCG, SERUM QUAL Negative Normal [facility] Comment on above: Performed By: #### L 500.2500, L100.0100, L501.5425, L300.8000, L501.5200, L700.6800 ####[facility] [address] [place], [place], [address] Orthopedic Visit Reporton Orthopedic Visit Report Normal [facility] Spine Lumbar (Routine)on Spine Lumbar (Routine) Normal [facility] L/S Spine Min 4 Viewson 08-01 L/S Spine Min 4 Views Normal [facility] Orthopedic Visit Reporton Orthopedic Visit Report Normal [facility] Cardiology Visit Reporton Cardiology Visit Report Normal [facility] Comprehensive Metabolic Prof ilon 08-22-2024 Albumin [Mass/Vol] 3.6 g/dL Normal 3.2-5.0 [facility] Comment on above: Order Comment: Comme nts: okay to do nonfasting Performed By: #### L 500.4100, L500.4050 ####[facility] [address] [place], [address] Albumin/Globulin [Mass ratio] 0.9 {ratio} Normal 0.9-2.4 [facility] Comment on above: Order Comment: Comme nts: okay to do nonfasting Performed By: #### L 500.4100, L500.4050 ####[facility] [address] [place], [address] ALK P 91 U/L Normal 45-117 [facility] Comment on above: Order Comment: Comme nts: okay to do nonfasting Performed By: #### L 500.4100, L500.4050 ####[facility] [address] [place], [address] ALT [Catalytic activity/Vol] 39 U/L Normal 13-56 [facility] Comment on above: Order Comment: Comme nts: okay to do nonfasting Performed By: #### L 500.4100, L500.4050 ####[facility] [address] [place], [address] AST [Catalytic activity/Vol] 41 U/L High 15-37 [facility] Comment on above: Order Comment: Comme nts: okay to do nonfasting Performed By: #### L 500.4100, L500.4050 ####[facility] [address] [place], [address] Bilirubin [Mass/Vol] 0.50 mg/dL Normal 0.20-1.00 [facility] Comment on above: Order Comment: Comme nts: okay to do nonfasting Result Comment: For patients on eltrombopag therapy, use of Dimension [place] TBIL is not recommended. Performed By: #### L 500.4100, L500.4050 ####[facility] [address] [place], [address] BUN/CRE 11.9 RATIO Normal 10-20 [facility] Comment on above: Order Comment: Comme nts: okay to do nonfasting Performed By: #### L 500.4100, L500.4050 ####[facility] [address] [place], [address] CA,Total 9.6 mg/dL Normal 8.5-10.1 [facility] Comment on above: Order Comment: Comme nts: okay to do nonfasting Performed By: #### L 500.4100, L500.4050 ####[facility] [address] [place], [address] Chloride [Moles/Vol] 104 mmol/L Normal 98-107 [facility] Comment on above: Order Comment: Comme nts: okay to do nonfasting Performed By: #### L 500.4100, L500.4050 ####[facility] [address] [place], [address] CO2 [Moles/Vol] 27.0 mmol/L Normal 21.0-32.0 [facility] Comment on above: Order Comment: Comme nts: okay to do nonfasting Performed By: #### L 500.4100, L500.4050 ####[facility] [address] [place], [address] Creatinine [Mass/Vol] 0.67 mg/dL Normal 0.55-1.02 [facility] Comment on above: Order Comment: Comme nts: okay to do nonfasting Result Comment: The validity of the calculated GFR GFRAA in patients over70 years has not been determined. Clinical correlation isessential. Performed By: #### L 500.4100, L500.4050 ####[facility] [address] [place], [address] EST GFR - AA 121 mL/min Normal >60 [facility] Comment on above: Order Comment: Comme nts: okay to do nonfasting Result Comment: Afri can Bulgarian GFR Calc Performed By: #### L 500.4100, L500.4050 ####[facility] [address] [place], [address] GAP 6 Normal 5-15 [facility] Comment on above: Order Comment: Comme nts: okay to do nonfasting Performed By: #### L 500.4100, L500.4050 ####[facility] [address] [place], [address] GFR/1.73 sq M.predicted among non-blacks MDRD (S/P/Bld) [Vol rate/Area] 100 mL/min/{1.73_m2} Normal >60 [facility] Comment on above: Order Comment: Comme nts: okay to do nonfasting Result Comment: Non- GFR Calc Performed By: #### L 500.4100, L500.4050 ####[facility] [address] [place], [address] Globulin (S) [Mass/Vol] 4.0 g/dL Normal 2.2-4.2 [facility] Comment on above: Order Comment: Comme nts: okay to do nonfasting Performed By: #### L 500.4100, L500.4050 ####[facility] [address] [place], [address] Glucose [Mass/Vol] 130 mg/dL High 74-106 [facility] Comment on above: Order Comment: Comme nts: okay to do nonfasting Result Comment: Fast ing Glucose result greater than or equal to 126 mg/dLsuggests DIABETES MELLITUS per A.D.A. criteria. Performed By: #### L 500.4100, L500.4050 ####[facility] [address] [place], [address] Potassium [Moles/Vol] 4.2 mmol/L Normal 3.5-5.1 [facility] Comment on above: Order Comment: Comme nts: okay to do nonfasting Performed By: #### L 500.4100, L500.4050 ####[facility] [address] [place], [address] Sodium [Moles/Vol] 137 mmol/L Normal 136-145 [facility] Comment on above: Order Comment: Comme nts: okay to do nonfasting Performed By: #### L 500.4100, L500.4050 ####[facility] [address] [place], [address] T PROT 7.6 g/dL Normal 6.4-8.2 [facility] Comment on above: Order Comment: Comme nts: okay to do nonfasting Performed By: #### L 500.4100, L500.4050 ####[facility] [address] [place], [address] Urea nitrogen [Mass/Vol] 8 mg/dL Normal 7-18 [facility] Comment on above: Order Comment: Comme nts: okay to do nonfasting Performed By: #### L 500.4100, L500.4050 ####[facility] [address] [place], [address] Lipid Profileon 08-22-2024 Cholesterol [Mass/Vol] 124 mg/dL Normal 200 [facility] Comment on above: Order Comment: Comme nts: okay to do nonfasting Result Comment: <200 mg/dL Desirable 200-240 mg/dL Borderline >240 mg/dL High Risk Performed By: #### L 500.4100, L500.4050 ####[facility] [address] [place], [address] Cholesterol in HDL [Mass/Vol] 70 mg/dL Normal [facility] Comment on above: Order Comment: Comme nts: okay to do nonfasting Result Comment: The drugs N-Acetylcysteine and Metamizole may falselydepress this assay. Reference Range HDL <40 mg/dL Low HDL Cholesterol HDL >or= 60 mg/dL High HDL Cholesterol Performed By: #### L 500.4100, L500.4050 ####[facility] [address] [place], [address] Cholesterol in LDL [Mass/Vol] 13 mg/dL Normal 0-130 [facility] Comment on above: Order Comment: Comme nts: okay to do nonfasting Performed By: #### L 500.4100, L500.4050 ####[facility] [address] [place], [address] Cholesterol in VLDL [Mass/Vol] 41 mg/dL High 5-40 [facility] Comment on above: Order Comment: Comme nts: okay to do nonfasting Performed By: #### L 500.4100, L500.4050 ####[facility] [address] [place], [address] Triglyceride [Mass/Vol] 204 mg/dL High [facility] Comment on above: Order Comment: Comme nts: okay to do nonfasting Result Comment: The drugs N-Acetylcysteine and Metamizole may falselydepress this assay.Serum Triglycerides Reference Interval Normal <150 mg/dL Borderline high 150 - 199 mg/dL High 200 - 499 mg/dL Very High > or = 500 mg/dL Performed By: #### L 500.4100, L500.4050 ####[facility] [address] [place], [address] Inital Evaluation (1) - PTon 08-16-2024 Inital Evaluation (1) - PT Normal [facility] Abdomen/Pelvis without Conto n 07-11-2024 Abdomen/Pelvis without Cont Normal [facility] CBC W/Diff, Automatedon 06-29 Absolute Neut Normal 2.0-7.7 [facility] Comment on above: Result Comment: DUPL ICATE ORDER, SEE OTHER FOR RESULTS Performed By: #### L 100.0100, L501.2450 ####[facility] [address] [place], [address] HCT Normal 37-47 [facility] Comment on above: Result Comment: DUPL ICATE ORDER, SEE OTHER FOR RESULTS Performed By: #### L 100.0100, L501.2450 ####[facility] [address] [place], [address] HGB Normal 12.0-15.0 [facility] Comment on above: Result Comment: DUPL ICATE ORDER, SEE OTHER FOR RESULTS Performed By: #### L 100.0100, L501.2450 ####[facility] [address] [place], [address] MCH Normal 27.0-32.0 [facility] Comment on above: Result Comment: DUPL ICATE ORDER, SEE OTHER FOR RESULTS Performed By: #### L 100.0100, L501.2450 ####[facility] [address] [place], [address] MCHC Normal 32-36 [facility] Comment on above: Result Comment: DUPL ICATE ORDER, SEE OTHER FOR RESULTS Performed By: #### L 100.0100, L501.2450 ####[facility] [address] [place], [address] MCV Normal 81-99 [facility] Comment on above: Result Comment: DUPL ICATE ORDER, SEE OTHER FOR RESULTS Performed By: #### L 100.0100, L501.2450 ####[facility] [address] [place], [address] NEUT% Normal 47-70 [facility] Comment on above: Result Comment: DUPL ICATE ORDER, SEE OTHER FOR RESULTS Performed By: #### L 100.0100, L501.2450 ####[facility] [address] [place], [address] PLT Normal 150-450 [facility] Comment on above: Result Comment: DUPL ICATE ORDER, SEE OTHER FOR RESULTS Performed By: #### L 100.0100, L501.2450 ####[facility] [address] [place], [address] RBC Normal 4.2-5.4 [facility] Comment on above: Result Comment: DUPL ICATE ORDER, SEE OTHER FOR RESULTS Performed By: #### L 100.0100, L501.2450 ####[facility] [address] [place], [address] RDW CV Normal 11.6-14.6 [facility] Comment on above: Result Comment: DUPL ICATE ORDER, SEE OTHER FOR RESULTS Performed By: #### L 100.0100, L501.2450 ####[facility] [address] [place], [address] RDW SD Normal 35.1-43.9 [facility] Comment on above: Result Comment: DUPL ICATE ORDER, SEE OTHER FOR RESULTS Performed By: #### L 100.0100, L501.2450 ####[facility] [address] [place], [address] WBC Normal 4.4-11.0 [facility] Comment on above: Result Comment: DUPL ICATE ORDER, SEE OTHER FOR RESULTS Performed By: #### L 100.0100, L501.2450 ####[facility] [address] [place], [address] Absolute Lymph 1.73 X10 3/uL Normal 0.83-4.51 [facility] Comment on above: Performed By: #### L 700.6800, L100.0100, L500.4050 ####[facility] [address] [place], [address] Absolute Neut 4.5 X10 3/uL Normal 2.0-7.7 [facility] Comment on above: Performed By: #### L 700.6800, L100.0100, L500.4050 ####[facility] [address] [place], [address] Basophils/100 WBC (Bld) 0.7 % Normal 0-1 [facility] Comment on above: Performed By: #### L 700.6800, L100.0100, L500.4050 ####[facility] [address] [place], [address] Eosinophils/100 WBC (Bld) 2.4 % Normal 0-5 [facility] Comment on above: Performed By: #### L 700.6800, L100.0100, L500.4050 ####[facility] [address] [place], [address] Erythrocyte distribution width (RBC) [Ratio] 12.7 % Normal 11.6-14.6 [facility] Comment on above: Performed By: #### L 700.6800, L100.0100, L500.4050 ####[facility] [address] [place], [address] Hematocrit (Bld) [Volume fraction] 41.9 % Normal 37-47 [facility] Comment on above: Performed By: #### L 700.6800, L100.0100, L500.4050 ####[facility] [address] [place], [address] Hemoglobin (Bld) [Mass/Vol] 14.0 g/dL Normal 12.0-15.0 [facility] Comment on above: Performed By: #### L 700.6800, L100.0100, L500.4050 ####[facility] [address] [place], [address] IG% 0.400 Normal 0.0-0.9 [facility] Comment on above: Result Comment: IG% - Immature Granulocytes (promyelocytes, myelocytes andmetamyelocytes) > 1% indicates that a LEFT SHIFT is Present. Performed By: #### L 700.6800, L100.0100, L500.4050 ####[facility] [address] [place], [address] Lymphocytes/100 WBC (Bld) 24.2 % Normal 19-41 [facility] Comment on above: Performed By: #### L 700.6800, L100.0100, L500.4050 ####[facility] [address] [place], [address] MCH (RBC) [Entitic mass] 31.6 pg Normal 27.0-32.0 [facility] Comment on above: Performed By: #### L 700.6800, L100.0100, L500.4050 ####[facility] [address] [place], [address] MCHC (RBC) [Mass/Vol] 33.4 g/dL Normal 32-36 [facility] Comment on above: Performed By: #### L 700.6800, L100.0100, L500.4050 ####[facility] [address] [place], [address] MCV (RBC) [Entitic vol] 94.6 fL Normal 81-99 [facility] Comment on above: Performed By: #### L 700.6800, L100.0100, L500.4050 ####[facility] [address] [place], [address] Monocytes/100 WBC (Bld) 9.4 % Normal 0-10 [facility] Comment on above: Performed By: #### L 700.6800, L100.0100, L500.4050 ####[facility] [address] [place], [address] Neutrophils/100 WBC (Bld) 62.9 % Normal 47-70 [facility] Comment on above: Performed By: #### L 700.6800, L100.0100, L500.4050 ####[facility] [address] [place], [address] Nucleated RBC (Bld) [#/Vol] 0.3 10*3/uL Normal 0-5 [facility] Comment on above: Performed By: #### L 700.6800, L100.0100, L500.4050 ####[facility] [address] [place], [address] Platelet mean volume (Bld) [Entitic vol] 9.0 fL Normal 6.2-12.0 [facility] Comment on above: Performed By: #### L 700.6800, L100.0100, L500.4050 ####[facility] [address] [place], [address] Platelets (Bld) [#/Vol] 243 10*3/uL Normal 150-450 [facility] Comment on above: Performed By: #### L 700.6800, L100.0100, L500.4050 ####[facility] [address] [place], [address] RBC (Bld) [#/Vol] 4.43 10*6/uL Normal 4.2-5.4 [facility] Comment on above: Performed By: #### L 700.6800, L100.0100, L500.4050 ####[facility] [address] [place], [address] RDW SD 43.8 fl Normal 35.1-43.9 [facility] Comment on above: Performed By: #### L 700.6800, L100.0100, L500.4050 ####[facility] [address] [place], [address] WBC (Bld) [#/Vol] 7.2 10*3/uL Normal 4.4-11.0 [facility] Comment on above: Performed By: #### L 700.6800, L100.0100, L500.4050 ####[facility] [address] [place], [address] Comprehensive Metabolic Prof ilon 07-11-2024 Albumin [Mass/Vol] 3.7 g/dL Normal 3.2-5.0 [facility] Comment on above: Performed By: #### L 700.6800, L100.0100, L500.4050 ####[facility] [address] [place], [address] Albumin/Globulin [Mass ratio] 0.9 {ratio} Normal 0.9-2.4 [facility] Comment on above: Performed By: #### L 700.6800, L100.0100, L500.4050 ####[facility] [address] [place], [address] ALK P 94 U/L Normal 45-117 [facility] Comment on above: Performed By: #### L 700.6800, L100.0100, L500.4050 ####[facility] [address] [place], [address] ALT [Catalytic activity/Vol] 58 U/L High 13-56 [facility] Comment on above: Performed By: #### L 700.6800, L100.0100, L500.4050 ####[facility] [address] [place], [address] AST [Catalytic activity/Vol] 35 U/L Normal 15-37 [facility] Comment on above: Performed By: #### L 700.6800, L100.0100, L500.4050 ####[facility] [address] [place], [address] Bilirubin [Mass/Vol] 0.40 mg/dL Normal 0.20-1.00 [facility] Comment on above: Result Comment: For patients on eltrombopag therapy, use of Dimension [place] TBIL is not recommended. Performed By: #### L 700.6800, L100.0100, L500.4050 ####[facility] [address] [place], [address] BUN/CRE 16.3 RATIO Normal 10-20 [facility] Comment on above: Performed By: #### L 700.6800, L100.0100, L500.4050 ####[facility] [address] [place], [address] CA,Total 8.5 mg/dL Normal 8.5-10.1 [facility] Comment on above: Performed By: #### L 700.6800, L100.0100, L500.4050 ####[facility] [address] [place], [address] Chloride [Moles/Vol] 101 mmol/L Normal 98-107 [facility] Comment on above: Performed By: #### L 700.6800, L100.0100, L500.4050 ####[facility] [address] [place], [address] CO2 [Moles/Vol] 26.0 mmol/L Normal 21.0-32.0 [facility] Comment on above: Performed By: #### L 700.6800, L100.0100, L500.4050 ####[facility] [address] [place], [address] Creatinine [Mass/Vol] 0.67 mg/dL Normal 0.55-1.02 [facility] Comment on above: Result Comment: The validity of the calculated GFR GFRAA in patients over70 years has not been determined. Clinical correlation isessential. Performed By: #### L 700.6800, L100.0100, L500.4050 ####[facility] [address] [place], [address] EST GFR - AA 120 mL/min Normal >60 [facility] Comment on above: Result Comment: Afri can Bulgarian GFR Calc Performed By: #### L 700.6800, L100.0100, L500.4050 ####[facility] [address] [place], [address] GAP 9 Normal 5-15 [facility] Comment on above: Performed By: #### L 700.6800, L100.0100, L500.4050 ####[facility] [address] [place], [address] GFR/1.73 sq M.predicted among non-blacks MDRD (S/P/Bld) [Vol rate/Area] 100 mL/min/{1.73_m2} Normal >60 [facility] Comment on above: Result Comment: Non- GFR Calc Performed By: #### L 700.6800, L100.0100, L500.4050 ####[facility] [address] [place], [address] Globulin (S) [Mass/Vol] 4.0 g/dL Normal 2.2-4.2 [facility] Comment on above: Performed By: #### L 700.6800, L100.0100, L500.4050 ####[facility] [address] [place], [address] Glucose [Mass/Vol] 175 mg/dL High 74-106 [facility] Comment on above: Result Comment: Fast ing Glucose result greater than or equal to 126 mg/dLsuggests DIABETES MELLITUS per A.D.A. criteria. Performed By: #### L 700.6800, L100.0100, L500.4050 ####[facility] [address] [place], [address] Potassium [Moles/Vol] 3.8 mmol/L Normal 3.5-5.1 [facility] Comment on above: Performed By: #### L 700.6800, L100.0100, L500.4050 ####[facility] [address] [place], [address] Sodium [Moles/Vol] 136 mmol/L Normal 136-145 [facility] Comment on above: Performed By: #### L 700.6800, L100.0100, L500.4050 ####[facility] [address] [place], [address] T PROT 7.7 g/dL Normal 6.4-8.2 [facility] Comment on above: Performed By: #### L 700.6800, L100.0100, L500.4050 ####[facility] [address] [place], [address] Urea nitrogen [Mass/Vol] 11 mg/dL Normal 7-18 [facility] Comment on above: Performed By: #### L 700.6800, L100.0100, [id number] ####[facility] [address] [place], [address] Emergency Department Summary on 07-11-2024 Emergency Department Summary Normal [facility] Lipaseon 07-11-2024 Lipase [Catalytic activity/Vol] 32 U/L Normal 13-75 [facility] Comment on above: Result Comment: Lucie schultz note:LIPASE revised reference range effective 23.New Lipase methodology. Expected to produce lower valuesthan the previous assay method.NEW Reference Range: 13 - 75 U/L Performed By: #### L 100.0100, L501.2450 ####[facility] [address] [place], [address] ,Serum,hCG Quali.on 07-11-2024 HCG, SERUM QUAL Negative Normal [facility] Comment on above: Performed By: #### L 700.6800, L100.0100, L500.4050 ####[facility] [address] [place], [address] Urinalysis, Completeon 07-11 Mucus Ql (Urine sed) RARE Normal [facility] Comment on above: Order Comment: [place] CTOR TO SPECIFY Performed By: #### L 400.0001 ####[facility] [address] [place], [address] BACTERIA 1+ /hpf Normal None Seen [facility] Comment on above: Order Comment: [place] TO SPECIFY Performed By: #### L 400.0001 ####[facility] [address] [place], [address] EPI,SQUAMOUS 5-10 SEEN Normal 5-10 [facility] Comment on above: Order Comment: [place] TO SPECIFY Performed By: #### L 400.0001 ####[facility] [address] [place], [address] WBC 5-10 SEEN Normal 0-5 [facility] Comment on above: Order Comment: [facility] CTOR TO SPECIFY Performed By: #### L 400.0001 ####[facility] [address] [place], [address] RBC 0 SEEN Normal 0-5 [facility] Comment on above: Order Comment: [facility] CTOR TO SPECIFY Performed By: #### L 400.0001 ####[facility] [address] [place], [address] CNOVon 04-22-2024 [facility] JOSEPH RINCON ([id number]) 1975 F NFR Date Time Provider Department [...] since qu (more content not included)... [facility] Basophil percentageOrdered B y: Milana Garcia on 03-21-2024 Bilirubin [Mass/Vol] 0.60 mg/dL 0.20-1.00 [facility] Comment on above: For patients on eltr ombopag therapy, use of Dimension [place] TBIL is not recommended. Chloride [Moles/Vol] 105 mmol/L 98-107 [facility] Glucose [Mass/Vol] 121 mg/dL 74-106 [facility] Comment on above: Fasting Glucose resu lt from 100 to 125 mg/dL suggests IMPAIRED HOMEOSTASIS per A.D.A. criteria. Potassium [Moles/Vol] 4.0 mmol/L 3.5-5.1 [facility] Protein [Mass/Vol] 7.6 g/dL 6.4-8.2 [facility] Sodium [Moles/Vol] 136 mmol/L 136-145 [facility] Laboratory - Chemistry and C hemistry - challengeOrdered By: Milana Garcia on 03-21-2024 Albumin/Globulin [Mass ratio] 0.9 {ratio} 0.9-2.4 [facility] ALP [Catalytic activity/Vol] 67 U/L 45-117 [facility] ALT [Catalytic activity/Vol] 27 U/L 13-56 [facility] CO2 [Moles/Vol] 24.0 mmol/L 21.0-32.0 [facility] Globulin (S) [Mass/Vol] 4.0 g/dL 2.2-4.2 [facility] Magnesium [Mass/Vol] 1.7 mg/dL 1.6-2.6 [facility] Sodium (U) [Moles/Vol] 104 mmol/L Not Establ. [facility] Urea nitrogen/Creatinine [Mass ratio] 21.6 mg/mg 10-20 [facility] No Panel InformationOrdered By: Milana Garcia on 03-21-2024 Estimated GFR (MDRD) Amer 108 mL/min >60 [facility] Comment on above: GFR Calc Estimated GFR (MDRD) Non-Af Amer 89 mL/min >60 [facility] Comment on above: Non- GFR Calc Serum or plasma calcium alphonso urement (mass/volume)Ordered By: Milana Garcia on 03-21-2024 Calcium [Mass/Vol] 8.8 mg/dL 8.5-10.1 [facility] Serum or plasma creatinine m easurement (mass/volume)Ordered By: Milana Garcia on 03-21-2024 Creatinine [Mass/Vol] 0.74 mg/dL 0.55-1.02 [facility] Comment on above: The validity of the calculated GFR & GFRAA in patients over 70 years has not been determined. Clinical correlation is essential. Serum or plasma thyroid stim ulating hormone (TSH) measurement (units/volume)Ordered By: Milana Garcia on 03-21-2024 TSH Qn 1.06 uIU/mL 0.358-3.74 [facility] Serum or plasma urea nitroge n measurement (mass/volume)Ordered By: Milana Garcia on 03-21-2024 Urea nitrogen [Mass/Vol] 16 mg/dL 7-18 [facility] Thin prep Papanicolaou smear with manual screeningOrdered By: Milana Garcia on 03-21-2024 Thin prep Papanicolaou smear with manual screening 3.6 g/dL 3.2-5.0 [facility] Thin prep Papanicolaou smear with manual screening 22 U/L 15-37 [facility] Thin prep Papanicolaou smear with manual screening 7 5-15 [facility] Thin prep Papanicolaou smear with manual screening 286 mOsm/KG 275-295 [facility] Urine osmolality measurement Ordered By: Milana Garcia on 03-21-2024 Osmolality (U) [Osmolality] 535 mOsm/KG >50 [facility] Comment on above: Normal Urine Referen ce Ranges Random: 50 - 1200 mOsm/kg H20 depending on fluid intake Random: >850 mOsm/kg after 12 hour fluid restriction 24 hour: ~300 - 900 mOsm/kg H2O Absolute lymphocyte countOrd ered By: Caprice Rosalino on 01-24-2024 Lymphocytes Auto (Unsp spec) [#/Vol] 3.36 10*3/uL 0.83-4.51 [facility] Automated lymphocyte count a s percentage of total leukocytesOrdered By: Caprice Jerry on 01-24-2024 Lymphocytes/100 WBC Auto (Unsp spec) 33.3 % 19-41 [facility] Basophil percentageOrdered B y: Caprice Jerry on 01-24-2024 Basophils/100 WBC (Bld) 0.8 % 0-1 [facility] Chloride [Moles/Vol] 104 mmol/L 98-107 [facility] Eosinophils/100 WBC (Bld) 1.6 % 0-5 [facility] Glucose [Mass/Vol] 110 mg/dL 74-106 [facility] Comment on above: Fasting Glucose resu lt from 100 to 125 mg/dL suggests IMPAIRED HOMEOSTASIS per A.D.A. criteria. Hemoglobin (Bld) [Mass/Vol] 12.5 g/dL 12.0-15.0 [facility] Monocytes/100 WBC (Bld) 9.1 % 0-10 [facility] Neutrophils (Bld) [#/Vol] 5.5 10*3/uL 2.0-7.7 [facility] Neutrophils/100 WBC (Bld) 54.8 % 47-70 [facility] Potassium [Moles/Vol] 3.9 mmol/L 3.5-5.1 [facility] Sodium [Moles/Vol] 138 mmol/L 136-145 [facility] WBC (Bld) [#/Vol] 10.1 10*3/uL 4.4-11.0 [facility] Basophil percentageOrdered B y: Ainsley Bean on 01-24-2024 Bilirubin [Mass/Vol] 0.30 mg/dL 0.20-1.00 [facility] Comment on above: For patients on eltr ombopag therapy, use of Dimension [place] TBIL is not recommended. Protein [Mass/Vol] 7.1 g/dL 6.4-8.2 [facility] Determination of erythrocyte mean corpuscular volume (MCV)Ordered By: Caprice Jerry on 01-24-2024 MCV (RBC) [Entitic vol] 95.9 fL 81-99 [facility] Direct bilirubinOrdered By: Ainsley Bean on 01-24-2024 Bilirubin.direct [Mass/Vol] 0.12 mg/dL 0.00-0.30 [facility] Erythrocyte distribution wid th ratioOrdered By: Capriceyen Jerry on 01-24-2024 Erythrocyte distribution width (RBC) [Ratio] 11.9 % 11.6-14.6 [facility] Erythrocyte distribution wid th standard deviationOrdered By: Capriceyen Jerry on 01-24-2024 Erythrocyte distribution width (RBC) [Entitic vol] 41.5 fL 35.1-43.9 [facility] Hematocrit Auto (Bld) [Volum e fraction]Ordered By: Caprice Jerry on 01-24-2024 Hematocrit (Bld) [Volume fraction] 37.4 % 37-47 [facility] Immature granulocytes/100 WB C Auto (Bld)Ordered By: Caprice Jerry on 01-24-2024 Immature granulocytes/100 WBC (Bld) 0.400 % 0.0-0.9 [facility] Comment on above: IG% - Immature Granu locytes (promyelocytes, myelocytes and metamyelocytes) > 1% indicates that a LEFT SHIFT is Present. Laboratory - Chemistry and C hemistry - challengeOrdered By: Ainsley Bean on 01-24-2024 ALP [Catalytic activity/Vol] 69 U/L 45-117 [facility] ALT [Catalytic activity/Vol] 23 U/L 13-56 [facility] Globulin (S) [Mass/Vol] 3.7 g/dL 2.2-4.2 [facility] Lipase [Catalytic activity/Vol] 88 U/L 13-75 [facility] Comment on above: Please note:LIPASE r evised reference range effective 23. New Lipase methodology. Expected to produce lower values than the previous assay method. NEW Reference Range: - 75 U/L Laboratory - Chemistry and C hemistry - challengeOrdered By: Caprice Jerry on 01-24-2024 CO2 [Moles/Vol] 29.0 mmol/L 21.0-32.0 [facility] Urea nitrogen/Creatinine [Mass ratio] 21.7 mg/mg 10-20 [facility] Laboratory - Hematology and Cell countsOrdered By: Caprice Jerry on 01-24-2024 MCH (RBC) [Entitic mass] 32.1 pg 27.0-32.0 [facility] MCHC (RBC) [Mass/Vol] 33.4 g/dL 32-36 [facility] Nucleated RBC/100 WBC (Bld) [Ratio] 0 % 0-5 [facility] Platelet mean volume (Bld) [Entitic vol] 9.6 fL 6.2-12.0 [facility] Platelets (Bld) [#/Vol] 264 10*3/uL 150-450 [facility] No Panel InformationOrdered By: Ainsley Bean on 01-24-2024 Troponin I High Sensitivity 4 pg/mL 3.0-54.0 [facility] Comment on above: Please Note: New Miri t Units and Gender Specific Reference Ranges. For more information see Policy Stat Procedure [place] High Sensitivity Troponin (TNIH) and attachments. No Panel InformationOrdered By: Caprice Jerry on 01-24-2024 Estimated GFR (MDRD) Amer 108 mL/min >60 [facility] Comment on above: GFR Calc Estimated GFR (MDRD) Non-Af Amer 90 mL/min >60 [facility] Comment on above: Non- GFR Calc RBC Auto (Bld) [#/Vol]Ordere d By: Caprice Jerry on 01-24-2024 RBC (Bld) [#/Vol] 3.90 10*6/uL 4.2-5.4 [facility] Serum or plasma calcium alphonso urement (mass/volume)Ordered By: Caprice Jerry on 01-24-2024 Calcium [Mass/Vol] 10.1 mg/dL 8.5-10.1 [facility] Serum or plasma creatinine m easurement (mass/volume)Ordered By: Caprice Jerry on 01-24-2024 Creatinine [Mass/Vol] 0.74 mg/dL 0.55-1.02 [facility] Comment on above: The validity of the calculated GFR & GFRAA in patients over 70 years has not been determined. Clinical correlation is essential. Serum or plasma urea nitroge n measurement (mass/volume)Ordered By: Caprice Jerry on 01-24-2024 Urea nitrogen [Mass/Vol] 16 mg/dL 7-18 [facility] Thin prep Papanicolaou smear with manual screeningOrdered By: Ainsley Bean on 01-24-2024 Thin prep Papanicolaou smear with manual screening 3.4 g/dL 3.2-5.0 [facility] Thin prep Papanicolaou smear with manual screening 25 U/L 15-37 [facility] Comment on above: Slight Hemolysis, Re sult may be falsely increased. Thin prep Papanicolaou smear with manual screeningOrdered By: Caprice Jerry on 01-24-2024 Thin prep Papanicolaou smear with manual screening 5 5-15 [facility] Absolute lymphocyte countOrd ered By: Caprice Jerry on 10-10-2023 Lymphocytes Auto (Unsp spec) [#/Vol] 0.98 10*3/uL 0.83-4.51 [facility] Basophil percentageOrdered B y: Caprice Jerry on 10-10-2023 Basophils/100 WBC (Bld) 0.3 % 0-1 [facility] Bilirubin [Mass/Vol] 1.00 mg/dL 0.20-1.00 [facility] Comment on above: For patients on eltr ombopag therapy, use of Dimension [place] TBIL is not recommended. Chloride [Moles/Vol] 103 mmol/L 98-107 [facility] Eosinophils/100 WBC (Bld) 0.2 % 0-5 [facility] Glucose [Mass/Vol] 175 mg/dL 74-106 [facility] Comment on above: Fasting Glucose resu lt greater than or equal to 126 mg/dL suggests DIABETES MELLITUS per A.D.A. criteria. Neutrophils (Bld) [#/Vol] 7.6 10*3/uL 2.0-7.7 [facility] Neutrophils/100 WBC (Bld) 81.6 % 47-70 [facility] Potassium [Moles/Vol] 3.9 mmol/L 3.5-5.1 [facility] Protein [Mass/Vol] 7.3 g/dL 6.4-8.2 [facility] Sodium [Moles/Vol] 133 mmol/L 136-145 [facility] WBC (Bld) [#/Vol] 9.3 10*3/uL 4.4-11.0 [facility] Blood erythrocytes count (nu mber/volume)Ordered By: Caprice Jerry on 10-10-2023 RBC (Bld) [#/Vol] 4.14 10*6/uL 4.2-5.4 [facility] Blood hemoglobin measurement (mass/volume)Ordered By: Caprice Jerry on 10-10-2023 Hemoglobin (Bld) [Mass/Vol] 13.5 g/dL 12.0-15.0 [facility] Blood lymphocytes/100 leukoc ytesOrdered By: Caprice Jerry on 10-10-2023 Lymphocytes/100 WBC (Bld) 10.6 % 19-41 [facility] Blood monocytes/100 leukocyt esOrdered By: Caprice Jerry on 10-10-2023 Monocytes/100 WBC (Bld) 7.0 % 0-10 [facility] Blood platelet mean volumeOr dered By: Caprice Jerry on 10-10-2023 Platelet mean volume (Bld) [Entitic vol] 9.7 fL 6.2-12.0 [facility] Determination of erythrocyte mean corpuscular volume (MCV)Ordered By: Caprice Jerry on 10-10-2023 MCV (RBC) [Entitic vol] 98.3 fL 81-99 [facility] Direct bilirubinOrdered By: Caprice Jerry on 10-10-2023 Bilirubin.direct [Mass/Vol] 0.30 mg/dL 0.00-0.30 [facility] Hematocrit Auto (Bld) [Volum e fraction]Ordered By: Caprice Jerry on 10-10-2023 Hematocrit (Bld) [Volume fraction] 40.7 % 37-47 [facility] Influenza virus A and B and SARS-CoV-2 (COVID-19) Ag panel - Upper respiratory specimOrdered By: Caprice Jerry on 10-10-2023 SARS-CoV-2 (COVID-19) RNA ALLEY+probe Ql (Resp) [facility] Laboratory - Chemistry and C hemistry - challengeOrdered By: Caprice Jerry on 10-10-2023 ALP [Catalytic activity/Vol] 97 U/L 45-117 [facility] ALT [Catalytic activity/Vol] 54 U/L 13-56 [facility] CO2 [Moles/Vol] 22.0 mmol/L 21.0-32.0 [facility] Globulin (S) [Mass/Vol] 3.8 g/dL 2.2-4.2 [facility] Lipase [Catalytic activity/Vol] 45 U/L 13-75 [facility] Comment on above: Please note:LIPASE r evised reference range effective 23. New Lipase methodology. Expected to produce lower values than the previous assay method. NEW Reference Range: 13 - 75 U/L Urea nitrogen/Creatinine [Mass ratio] 8.9 mg/mg 10-20 [facility] Laboratory - Hematology and Cell countsOrdered By: Caprice Jerry on 10-10-2023 Erythrocyte distribution width (RBC) [Entitic vol] 44.4 fL 35.1-43.9 [facility] Erythrocyte distribution width (RBC) [Ratio] 12.4 % 11.6-14.6 [facility] Immature granulocytes/100 WBC (Bld) 0.300 % 0.0-0.9 [facility] Comment on above: IG% - Immature Granu locytes (promyelocytes, myelocytes and metamyelocytes) > 1% indicates that a LEFT SHIFT is Present. MCH (RBC) [Entitic mass] 32.6 pg 27.0-32.0 [facility] Nucleated RBC/100 WBC (Bld) [Ratio] 0 % 0-5 [facility] MCHC Auto (RBC) [Mass/Vol]Or dered By: Caprice Jerry on 10-10-2023 MCHC (RBC) [Mass/Vol] 33.2 g/dL 32-36 [facility] No Panel InformationOrdered By: Caprice Jerry on 10-10-2023 D-Dimer Quantitative (PE/DVT) 0.45 FEU/ug/m 0.27-0.49 [facility] Comment on above: NORMAL D-Dimer level (<0.50) indicates no DVT or PE. Estimated Creatinine Clearance Calc 31.78 ml/min [facility] Estimated GFR (MDRD) Amer 36 mL/min >60 [facility] Comment on above: GFR Calc Estimated GFR (MDRD) Non-Af Amer 30 mL/min >60 [facility] Comment on above: Non- GFR Calc Troponin I High Sensitivity 12 pg/mL 3.0-54.0 [facility] Comment on above: Please Note: New Miri t Units and Gender Specific Reference Ranges. For more information see Policy Stat Procedure [place] High Sensitivity Troponin (TNIH) and attachments. Platelets bldOrdered By: Leona Jerry on 10-10-2023 Platelets (Bld) [#/Vol] 255 10*3/uL 150-450 [facility] Serum or plasma albumin alphonso urement (mass/volume)Ordered By: Caprice Jerry on 10-10-2023 Albumin [Mass/Vol] 3.5 g/dL 3.2-5.0 [facility] Serum or plasma calcium alphonso urement (mass/volume)Ordered By: Caprice Jerry on 10-10-2023 Calcium [Mass/Vol] 8.1 mg/dL 8.5-10.1 [facility] Serum or plasma creatinine m easurement (mass/volume)Ordered By: Caprice Jerry on 10-10-2023 Creatinine [Mass/Vol] 1.91 mg/dL 0.55-1.02 [facility] Comment on above: The validity of the calculated GFR & GFRAA in patients over 70 years has not been determined. Clinical correlation is essential. Serum or plasma urea nitroge n measurement (mass/volume)Ordered By: Caprice Jerry on 10-10-2023 Urea nitrogen [Mass/Vol] 17 mg/dL 7-18 [facility] Thin prep Papanicolaou smear with manual screeningOrdered By: Caprice Jerry on 10-10-2023 Thin prep Papanicolaou smear with manual screening 68 U/L 15-37 [facility] Thin prep Papanicolaou smear with manual screening 8 5-15 [facility] No Panel Informationon 09-15 POC SARS CoV-2 Antigen Negative [facility] Basophil percentageOrdered B y: Jim Manriquez on 08-25-2023 Bilirubin [Mass/Vol] 0.20 mg/dL 0.20-1.00 [facility] Comment on above: For patients on eltr ombopag therapy, use of Dimension [place] TBIL is not recommended. Cholesterol [Mass/Vol] 224 mg/dL <200 [facility] Comment on above: <200 mg/dL Desirable 200-240 mg/dL Borderline >240 mg/dL High Risk Protein [Mass/Vol] 7.2 g/dL 6.4-8.2 [facility] Triglyceride [Mass/Vol] 405 mg/dL <199 [facility] Comment on above: The drugs N-Acetylcy [...] on 08-25-2023 Bilirubin.direct [Mass/Vol] 0.10 mg/dL 0.00-0.30 [facility] Laboratory - Chemistry and C hemistry - challengeOrdered By: Jim Manriquez on 08-25-2023 ALP [Catalytic activity/Vol] 97 U/L 45-117 [facility] ALT [Catalytic activity/Vol] 88 U/L 13-56 [facility] Globulin (S) [Mass/Vol] 3.7 g/dL 2.2-4.2 [facility] Lipase [Catalytic activity/Vol] 53 U/L 13-75 [facility] Comment on above: Please note:LIPASE r evised reference range effective 23. New Lipase methodology. Expected to produce lower values than the previous assay method. NEW Reference Range: 13 - 75 U/L Serum or plasma albumin alphonso urement (mass/volume)Ordered By: Jim Manriquez on 08-25-2023 Albumin [Mass/Vol] 3.5 g/dL 3.2-5.0 [facility] Serum or plasma cholesterol in HDL measurement (mass/volume)Ordered By: Jim Manriquez on 08-25-2023 Cholesterol in HDL [Mass/Vol] 61 mg/dL >40 [facility] Comment on above: The drugs N-Acetylcy steine and Metamizole may falsely depress this assay. Reference Range HDL <40 mg/dL Low HDL Cholesterol HDL >or= 60 mg/dL High HDL Cholesterol Serum or plasma cholesterol in VLDL measurement (mass/volume)Ordered By: Jim Manriquez on 08-25-2023 Cholesterol in VLDL [Mass/Vol] [facility] Comment on above: Test not performed Serum or plasma low density lipoprotein (LDL) cholesterol measurement (mass/volume)Ordered By: Jim Manriquez on 08-25-2023 Cholesterol in LDL [Mass/Vol] [facility] Comment on above: Test not performed Thin prep Papanicolaou smear with manual screeningOrdered By: Jim Manriquez on 08-25-2023 Thin prep Papanicolaou smear with manual screening 43 U/L 15-37 [facility] Absolute lymphocyte countOrd ered By: Jennifer Davila on 08-23-2023 Lymphocytes Auto (Unsp spec) [#/Vol] 2.29 10*3/uL 0.83-4.51 [facility] Basophil percentageOrdered B y: Jennifer Davila on 08-23-2023 Basophil percentage 0 SEEN /hpf 0-5 [facility] Basophils/100 WBC (Bld) 0.5 % 0-1 [facility] Bilirubin [Mass/Vol] 0.30 mg/dL 0.20-1.00 [facility] Comment on above: For patients on eltr ombopag therapy, use of Dimension [place] TBIL is not recommended. Chloride [Moles/Vol] 103 mmol/L 98-107 [facility] Eosinophils/100 WBC (Bld) 1.6 % 0-5 [facility] Glucose [Mass/Vol] 205 mg/dL 74-106 [facility] Comment on above: Glucose result great er than or equal to 200 mg/dLsuggests DIABETES MELLITUS per A.D.A. criteria. Neutrophils (Bld) [#/Vol] 7.5 10*3/uL 2.0-7.7 [facility] Neutrophils/100 WBC (Bld) 69.4 % 47-70 [facility] Potassium [Moles/Vol] 4.3 mmol/L 3.5-5.1 [facility] Protein [Mass/Vol] 7.8 g/dL 6.4-8.2 [facility] Sodium [Moles/Vol] 135 mmol/L 136-145 [facility] WBC (Bld) [#/Vol] 10.8 10*3/uL 4.4-11.0 [facility] Bilirubin Test strip Ql (U)O rdered By: Jennifer Davila on 08-23-2023 Bilirubin Ql (U) Negative Negative [facility] Blood erythrocytes count (nu mber/volume)Ordered By: Jennifer Davila on 08-23-2023 RBC (Bld) [#/Vol] 4.30 10*6/uL 4.2-5.4 [facility] Blood hemoglobin measurement (mass/volume)Ordered By: Jennifer Davila on 08-23-2023 Hemoglobin (Bld) [Mass/Vol] 14.0 g/dL 12.0-15.0 [facility] Blood lymphocytes/100 leukoc ytesOrdered By: Jennifer Davila on 08-23-2023 Lymphocytes/100 WBC (Bld) 21.3 % 19-41 [facility] Blood monocytes/100 leukocyt esOrdered By: Jennifer Davila on 08-23-2023 Monocytes/100 WBC (Bld) 6.7 % 0-10 [facility] Blood platelet mean volumeOr dered By: Jennifer Davila on 08-23-2023 Platelet mean volume (Bld) [Entitic vol] 9.6 fL 6.2-12.0 [facility] Determination of erythrocyte mean corpuscular volume (MCV)Ordered By: Jennifer Davila on 08-23-2023 MCV (RBC) [Entitic vol] 97.9 fL 81-99 [facility] Hematocrit Auto (Bld) [Volum e fraction]Ordered By: Jennifer Davila on 08-23-2023 Hematocrit (Bld) [Volume fraction] 42.1 % 37-47 [facility] Ketones Test strip Ql (U)Ord ered By: Jennifer Davila on 08-23-2023 Ketones Ql (U) Negative Negative [facility] - Chemistry and C hemistry - challengeOrdered By: Jennifer Davila on 08-23-2023 ALP [Catalytic activity/Vol] 69 U/L 45-117 [facility] ALT [Catalytic activity/Vol] 26 U/L 13-56 [facility] CO2 [Moles/Vol] 24.0 mmol/L 21.0-32.0 [facility] Globulin (S) [Mass/Vol] 4.2 g/dL 2.2-4.2 [facility] Lipase [Catalytic activity/Vol] 41 U/L 13-75 [facility] Comment on above: Please note:LIPASE r evised reference range effective 23. New Lipase methodology. Expected to produce lower values than the previous assay method. NEW Reference Range: 13 - 75 U/L Urea nitrogen/Creatinine [Mass ratio] 9.5 mg/mg 10-20 [facility] - Hematology and Cell countsOrdered By: Jennifer Davila on 08-23-2023 Erythrocyte distribution width (RBC) [Entitic vol] 45.9 fL 35.1-43.9 [facility] Erythrocyte distribution width (RBC) [Ratio] 12.8 % 11.6-14.6 [facility] Immature granulocytes/100 WBC (Bld) 0.500 % 0.0-0.9 [facility] Comment on above: IG% - Immature Granu locytes (promyelocytes, myelocytes and metamyelocytes) > 1% indicates that a LEFT SHIFT is Present. MCH (RBC) [Entitic mass] 32.6 pg 27.0-32.0 [facility] Nucleated RBC/100 WBC (Bld) [Ratio] 0 % 0-5 [facility] MCHC Auto (RBC) [Mass/Vol]Or dered By: Jennifer Davila on 08-23-2023 MCHC (RBC) [Mass/Vol] 33.3 g/dL 32-36 [facility] Mucus LM Ql (Urine sed)Order ed By: Jennifer Davila on 08-23-2023 Mucus Ql (Urine sed) 0 SEEN /hpf [facility] Nitrite Test strip Ql (U)Ord ered By: Jennifer Davila on 08-23-2023 Nitrite Ql (U) Negative Negative [facility] No Panel InformationOrdered By: Jennifer Davila on 08-23-2023 Estimated Creatinine Clearance Calc 57.81 ml/min [facility] Estimated GFR (MDRD) Amer 72 mL/min >60 [facility] Comment on above: GFR Calc Estimated GFR (MDRD) Non-Af Amer 60 mL/min >60 [facility] Comment on above: Non- GFR Calc Troponin I High Sensitivity 3 pg/mL 3.0-54.0 [facility] Comment on above: Please Note: New Miri t Units and Gender Specific Reference Ranges. For more information see Policy Stat Procedure [place] High Sensitivity Troponin (TNIH) and attachments. Platelets bldOrdered By: Kole Davila on 08-23-2023 Platelets (Bld) [#/Vol] 264 10*3/uL 150-450 [facility] Protein Test strip Ql (U)Ord ered By: Jennifer Davila on 08-23-2023 Protein Ql (U) Negative Negative [facility] Serum or plasma albumin alphonso urement (mass/volume)Ordered By: Jennifer Davila on 08-23-2023 Albumin [Mass/Vol] 3.6 g/dL 3.2-5.0 [facility] Serum or plasma albumin/glob ulin mass ratioOrdered By: Jennifer Davila on 08-23-2023 Albumin/Globulin [Mass ratio] 0.9 {ratio} 0.9-2.4 [facility] Serum or plasma calcium alphonso urement (mass/volume)Ordered By: Jennifer Davila on 08-23-2023 Calcium [Mass/Vol] 8.8 mg/dL 8.5-10.1 [facility] Serum or plasma creatinine m easurement (mass/volume)Ordered By: Jennifer Davila on 08-23-2023 Creatinine [Mass/Vol] 1.05 mg/dL 0.55-1.02 [facility] Comment on above: The validity of the calculated GFR & GFRAA in patients over 70 years has not been determined. Clinical correlation is essential. Serum or plasma urea nitroge n measurement (mass/volume)Ordered By: Jennifer Davila on 08-23-2023 Urea nitrogen [Mass/Vol] 10 mg/dL 7-18 [facility] Squamous epithelial cells de tection in urine sediment by light microscopyOrdered By: Jennifer Davila on 08-23-2023 Epithelial cells.squamous LM Ql (Urine sed) 0-5 SEEN /hpf 5-10 [facility] Thin prep Papanicolaou smear with manual screeningOrdered By: Jennifer Davila on 08-23-2023 Thin prep Papanicolaou smear with manual screening 18 U/L 15-37 [facility] Thin prep Papanicolaou smear with manual screening 8 5-15 [facility] Urine blood detectionOrdered By: Jennifer Davila on 08-23-2023 RBC Ql (U) Negative Negative [facility] RBC Ql (U) 0 SEEN /hpf 0-5 [facility] Urine clarityOrdered By: Kole Davila on 08-23-2023 Clarity (U) Clear Clear [facility] Urine color determinationOrd ered By: Jennifer Davila on 08-23-2023 Color (U) Yellow Yellow [facility] Urine glucose detectionOrder ed By: Jennifer Davila on 08-23-2023 Glucose Ql (U) 1000 mg/dl Normal [facility] Urine leukocyte esterase det ection by dipstickOrdered By: Jennifer Davila on 08-23-2023 Leukocyte esterase Test strip Ql (U) Negative Negative [facility] Urine pHOrdered By: Suha Davila on 08-23-2023 pH (U) 6.0 [pH] 5.0 - 8.0 [facility] Urine sediment bacteria coun t by microscopy (number/high power field)Ordered By: Jennifer Davila on 08-23-2023 Bacteria LM.HPF (Urine sed) [#/Area] 0 /[HPF] None Seen [facility] Urine specific gravity measu rementOrdered By: Jennifer Davila on 08-23-2023 Specific gravity (U) [Rel density] 1.010 1.002-1.030 [facility] Urobilinogen Auto test strip Ql (U)Ordered By: Jennifer Davila on 08-23-2023 Urobilinogen Ql (U) Normal mg/dl Normal [facility] Absolute lymphocyte countOrd ered By: Caprcie Jerry on 07-29-2023 Lymphocytes Auto (Unsp spec) [#/Vol] 2.24 10*3/uL 0.83-4.51 [facility] Basophil percentageOrdered B y: Caprice Jerry on 07-29-2023 Basophils/100 WBC (Bld) 0.5 % 0-1 [facility] Bilirubin [Mass/Vol] 0.30 mg/dL 0.20-1.00 [facility] Comment on above: For patients on eltr ombopag therapy, use of Dimension [place] TBIL is not recommended. Chloride [Moles/Vol] 102 mmol/L 98-107 [facility] Eosinophils/100 WBC (Bld) 1.6 % 0-5 [facility] Glucose [Mass/Vol] 173 mg/dL 74-106 [facility] Comment on above: Fasting Glucose resu lt greater than or equal to 126 mg/dL suggests DIABETES MELLITUS per A.D.A. criteria. Neutrophils (Bld) [#/Vol] 5.6 10*3/uL 2.0-7.7 [facility] Neutrophils/100 WBC (Bld) 63.7 % 47-70 [facility] Potassium [Moles/Vol] 3.9 mmol/L 3.5-5.1 [facility] Protein [Mass/Vol] 7.3 g/dL 6.4-8.2 [facility] Sodium [Moles/Vol] 135 mmol/L 136-145 [facility] WBC (Bld) [#/Vol] 8.8 10*3/uL 4.4-11.0 [facility] Beta hCG serum qualOrdered B y: Caprice Jerry on 07-29-2023 Beta HCG ( test) Ql Negative [facility] Blood erythrocytes count (nu mber/volume)Ordered By: Caprice Jerry on 07-29-2023 RBC (Bld) [#/Vol] 3.94 10*6/uL 4.2-5.4 [facility] Blood hemoglobin measurement (mass/volume)Ordered By: Caprice Jerry on 07-29-2023 Hemoglobin (Bld) [Mass/Vol] 13.1 g/dL 12.0-15.0 [facility] Blood lymphocytes/100 leukoc ytesOrdered By: Caprice Jerry on 07-29-2023 Lymphocytes/100 WBC (Bld) 25.4 % 19-41 [facility] Blood monocytes/100 leukocyt esOrdered By: Caprice Jerry on 07-29-2023 Monocytes/100 WBC (Bld) 8.5 % 0-10 [facility] Blood platelet mean volumeOr dered By: Caprice Jerry on 07-29-2023 Platelet mean volume (Bld) [Entitic vol] 9.6 fL 6.2-12.0 [facility] Determination of erythrocyte mean corpuscular volume (MCV)Ordered By: Caprice Jerry on 07-29-2023 MCV (RBC) [Entitic vol] 97.7 fL 81-99 [facility] Direct bilirubinOrdered By: Caprice Jerry on 07-29-2023 Bilirubin.direct [Mass/Vol] 0.08 mg/dL 0.00-0.30 [facility] Hematocrit Auto (Bld) [Volum e fraction]Ordered By: Caprice Jerry on 07-29-2023 Hematocrit (Bld) [Volume fraction] 38.5 % 37-47 [facility] - Chemistry and C hemistry - challengeOrdered By: Caprice Jerry on 07-29-2023 ALP [Catalytic activity/Vol] 93 U/L 45-117 [facility] ALT [Catalytic activity/Vol] 45 U/L 13-56 [facility] CO2 [Moles/Vol] 26.0 mmol/L 21.0-32.0 [facility] Globulin (S) [Mass/Vol] 3.8 g/dL 2.2-4.2 [facility] Lipase [Catalytic activity/Vol] 32 U/L 13-75 [facility] Comment on above: Please note:LIPASE r evised reference range effective 23. New Lipase methodology. Expected to produce lower values than the previous assay method. NEW Reference Range: 13 - 75 U/L Urea nitrogen/Creatinine [Mass ratio] 12.5 mg/mg 10-20 [facility] - Hematology and Cell countsOrdered By: Caprice Jerry on 07-29-2023 Erythrocyte distribution width (RBC) [Entitic vol] 45.1 fL 35.1-43.9 [facility] Erythrocyte distribution width (RBC) [Ratio] 12.7 % 11.6-14.6 [facility] Immature granulocytes/100 WBC (Bld) 0.300 % 0.0-0.9 [facility] Comment on above: IG% - Immature Granu locytes (promyelocytes, myelocytes and metamyelocytes) > 1% indicates that a LEFT SHIFT is Present. MCH (RBC) [Entitic mass] 33.2 pg 27.0-32.0 [facility] Nucleated RBC/100 WBC (Bld) [Ratio] 0 % 0-5 [facility] MCHC Auto (RBC) [Mass/Vol]Or dered By: Caprice Jerry on 07-29-2023 MCHC (RBC) [Mass/Vol] 34.0 g/dL 32-36 [facility] No Panel InformationOrdered By: Caprice Jerry on 07-29-2023 Troponin I High Sensitivity 4 pg/mL 3.0-54.0 [facility] Comment on above: Please Note: New Miri t Units and Gender Specific Reference Ranges. For more information see Policy Stat Procedure [place] High Sensitivity Troponin (TNIH) and attachments. Estimated Creatinine Clearance Calc 68.98 ml/min [facility] Estimated GFR (MDRD) Amer 89 mL/min >60 [facility] Comment on above: GFR Calc Estimated GFR (MDRD) Non-Af Amer 74 mL/min >60 [facility] Comment on above: Non- GFR Calc Platelets bldOrdered By: Leona Jerry on 07-29-2023 Platelets (Bld) [#/Vol] 281 10*3/uL 150-450 [facility] Serum or plasma albumin alphonso urement (mass/volume)Ordered By: Caprice Jerry on 07-29-2023 Albumin [Mass/Vol] 3.5 g/dL 3.2-5.0 [facility] Serum or plasma calcium alphonso urement (mass/volume)Ordered By: Caprice Jerry on 07-29-2023 Calcium [Mass/Vol] 8.5 mg/dL 8.5-10.1 [facility] Serum or plasma creatinine m easurement (mass/volume)Ordered By: Caprice Jerry on 07-29-2023 Creatinine [Mass/Vol] 0.88 mg/dL 0.55-1.02 [facility] Comment on above: The validity of the calculated GFR & GFRAA in patients over 70 years has not been determined. Clinical correlation is essential. Serum or plasma urea nitroge n measurement (mass/volume)Ordered By: Caprice Jerry on 07-29-2023 Urea nitrogen [Mass/Vol] 11 mg/dL 7-18 [facility] Thin prep Papanicolaou smear with manual screeningOrdered By: Caprice Jerry on 07-29-2023 Thin prep Papanicolaou smear with manual screening 24 U/L 15-37 [facility] Thin prep Papanicolaou smear with manual screening 7 5-15 [facility] Absolute lymphocyte countOrd ered By: Milana Garcia on 07-19-2023 Lymphocytes Auto (Unsp spec) [#/Vol] 2.51 10*3/uL 0.83-4.51 [facility] Basophil percentageOrdered B y: Milana Garcai on 07-19-2023 Basophil percentage 3.1 mg/dL 2.5-4.9 [facility] Basophils/100 WBC (Bld) 0.4 % 0-1 [facility] Bilirubin [Mass/Vol] 0.50 mg/dL 0.20-1.00 [facility] Comment on above: For patients on eltr ombopag therapy, use of Dimension [place] TBIL is not recommended. Chloride [Moles/Vol] 106 mmol/L 98-107 [facility] Eosinophils/100 WBC (Bld) 3.2 % 0-5 [facility] Glucose [Mass/Vol] 123 mg/dL 74-106 [facility] Comment on above: Fasting Glucose resu lt from 100 to 125 mg/dL suggests IMPAIRED HOMEOSTASIS per A.D.A. criteria. Neutrophils (Bld) [#/Vol] 3.7 10*3/uL 2.0-7.7 [facility] Neutrophils/100 WBC (Bld) 52.0 % 47-70 [facility] Potassium [Moles/Vol] 3.5 mmol/L 3.5-5.1 [facility] Protein [Mass/Vol] 6.9 g/dL 6.4-8.2 [facility] Sodium [Moles/Vol] 140 mmol/L 136-145 [facility] WBC (Bld) [#/Vol] 7.2 10*3/uL 4.4-11.0 [facility] Blood erythrocytes count (nu mber/volume)Ordered By: Milana Garcia on 07-19-2023 RBC (Bld) [#/Vol] 3.83 10*6/uL 4.2-5.4 [facility] Blood hemoglobin measurement (mass/volume)Ordered By: Milana Garcia on 07-19-2023 Hemoglobin (Bld) [Mass/Vol] 12.3 g/dL 12.0-15.0 [facility] Blood lymphocytes/100 leukoc ytesOrdered By: Milana Garcia on 07-19-2023 Lymphocytes/100 WBC (Bld) 35.1 % 19-41 [facility] Blood monocytes/100 leukocyt esOrdered By: Milana Garcia on 07-19-2023 Monocytes/100 WBC (Bld) 9.0 % 0-10 [facility] Blood platelet mean volumeOr dered By: Milana Garcia on 07-19-2023 Platelet mean volume (Bld) [Entitic vol] 9.6 fL 6.2-12.0 [facility] Determination of erythrocyte mean corpuscular volume (MCV)Ordered By: Milana Garcia on 07-19-2023 MCV (RBC) [Entitic vol] 97.9 fL 81-99 [facility] Hematocrit Auto (Bld) [Volum e fraction]Ordered By: Milana Garcia on 07-19-2023 Hematocrit (Bld) [Volume fraction] 37.5 % 37-47 [facility] - Chemistry and C hemistry - challengeOrdered By: Milana Garcia on 07-19-2023 ALP [Catalytic activity/Vol] 68 U/L 45-117 [facility] ALT [Catalytic activity/Vol] 28 U/L 13-56 [facility] CO2 [Moles/Vol] 27.0 mmol/L 21.0-32.0 [facility] Cobalamin (Vitamin B12) [Mass/Vol] 534 pg/mL 211-911 [facility] Globulin (S) [Mass/Vol] 3.6 g/dL 2.2-4.2 [facility] Magnesium [Mass/Vol] 1.6 mg/dL 1.6-2.6 [facility] Urea nitrogen/Creatinine [Mass ratio] 10.4 mg/mg 10-20 [facility] - Hematology and Cell countsOrdered By: Milana Garcia on 07-19-2023 Erythrocyte distribution width (RBC) [Entitic vol] 43.8 fL 35.1-43.9 [facility] Erythrocyte distribution width (RBC) [Ratio] 12.3 % 11.6-14.6 [facility] Immature granulocytes/100 WBC (Bld) 0.300 % 0.0-0.9 [facility] Comment on above: IG% - Immature Granu locytes (promyelocytes, myelocytes and metamyelocytes) > 1% indicates that a LEFT SHIFT is Present. MCH (RBC) [Entitic mass] 32.1 pg 27.0-32.0 [facility] Nucleated RBC/100 WBC (Bld) [Ratio] 0 % 0-5 [facility] MCHC Auto (RBC) [Mass/Vol]Or dered By: Milana Garcia on 07-19-2023 MCHC (RBC) [Mass/Vol] 32.8 g/dL 32-36 [facility] No Panel InformationOrdered By: Milana Garcia on 07-19-2023 Estimated GFR (MDRD) Amer 121 mL/min >60 [facility] Comment on above: GFR Calc Estimated GFR (MDRD) Non-Af Amer 100 mL/min >60 [facility] Comment on above: Non- GFR Calc Thyroid Stimulating Hormone (TSH) 1.07 uIU/mL 0.358-3.74 [facility] Platelets bldOrdered By: Yamel Garcia on 07-19-2023 Platelets (Bld) [#/Vol] 245 10*3/uL 150-450 [facility] Serum or plasma albumin alphonso urement (mass/volume)Ordered By: Milana Garcia on 07-19-2023 Albumin [Mass/Vol] 3.3 g/dL 3.2-5.0 [facility] Serum or plasma albumin/glob ulin mass ratioOrdered By: Milana Garcia on 07-19-2023 Albumin/Globulin [Mass ratio] 0.9 {ratio} 0.9-2.4 [facility] Serum or plasma calcium alphonso urement (mass/volume)Ordered By: Milana Garcia on 07-19-2023 Calcium [Mass/Vol] 8.4 mg/dL 8.5-10.1 [facility] Serum or plasma creatinine m easurement (mass/volume)Ordered By: Milana Garcia on 07-19-2023 Creatinine [Mass/Vol] 0.68 mg/dL 0.55-1.02 [facility] Comment on above: The validity of the calculated GFR & GFRAA in patients over 70 years has not been determined. Clinical correlation is essential. Serum or plasma folate measu rement (mass/volume)Ordered By: Milana Garcia on 07-19-2023 Folate [Mass/Vol] 58.30 ng/mL 3.1-55.4 [facility] Serum or plasma urea nitroge n measurement (mass/volume)Ordered By: Milana Garcia on 07-19-2023 Urea nitrogen [Mass/Vol] 7 mg/dL 7-18 [facility] Thin prep Papanicolaou smear with manual screeningOrdered By: Milana Garcia on 07-19-2023 Thin prep Papanicolaou smear with manual screening 19 U/L 15-37 [facility] Thin prep Papanicolaou smear with manual screening 7 5-15 [facility] No Panel InformationOrdered By: Dr. Jerry on 05-25-2023 Troponin I High Sensitivity 3 pg/mL 3.0-54.0 [facility] Comment on above: Please Note: New Miri t Units and Gender Specific Reference Ranges. For more information see Policy Stat Procedure [facility] High Sensitivity Troponin (TNIH) and attachments. Absolute lymphocyte countOrd ered By: Dr. Jerry on 05-24-2023 Lymphocytes Auto (Unsp spec) [#/Vol] 3.25 10*3/uL 0.83-4.51 [facility] Basophil percentageOrdered B y: Dr. Jerry on 05-24-2023 Basophil percentage 0 SEEN /hpf 0-5 [facility] Basophils/100 WBC (Bld) 0.7 % 0-1 [facility] Bilirubin [Mass/Vol] 0.20 mg/dL 0.20-1.00 [facility] Comment on above: For patients on eltr ombopag therapy, use of Dimension [place] TBIL is not recommended. Chloride [Moles/Vol] 112 mmol/L 98-107 [facility] Eosinophils/100 WBC (Bld) 2.2 % 0-5 [facility] Glucose [Mass/Vol] 127 mg/dL 74-106 [facility] Comment on above: Fasting Glucose resu lt greater than or equal to 126 mg/dL suggests DIABETES MELLITUS per A.D.A. criteria. Neutrophils (Bld) [#/Vol] 2.9 10*3/uL 2.0-7.7 [facility] Neutrophils/100 WBC (Bld) 40.3 % 47-70 [facility] Potassium [Moles/Vol] 5.9 mmol/L 3.5-5.1 [facility] Comment on above: Moderate Hemolysis, Result may be falsely increased. Protein [Mass/Vol] 6.7 g/dL 6.4-8.2 [facility] Sodium [Moles/Vol] 138 mmol/L 136-145 [facility] WBC (Bld) [#/Vol] 7.2 10*3/uL 4.4-11.0 [facility] Beta hCG serum qualOrdered B y: Dr. Jerry on 05-24-2023 Beta HCG ( test) Ql Negative [facility] Bilirubin Test strip Ql (U)O rdered By: Dr. Jerry on 05-24-2023 Bilirubin Ql (U) Negative Negative [facility] Blood erythrocytes count (nu mber/volume)Ordered By: Dr. Jerry on 05-24-2023 RBC (Bld) [#/Vol] 3.88 10*6/uL 4.2-5.4 [facility] Blood hemoglobin measurement (mass/volume)Ordered By: Dr. Jerry on 05-24-2023 Hemoglobin (Bld) [Mass/Vol] 12.9 g/dL 12.0-15.0 [facility] Blood lymphocytes/100 leukoc ytesOrdered By: Dr. Jerry on 05-24-2023 Lymphocytes/100 WBC (Bld) 45.0 % 19-41 [facility] Blood monocytes/100 leukocyt esOrdered By: Dr. Jerry on 05-24-2023 Monocytes/100 WBC (Bld) 11.4 % 0-10 [facility] Blood platelet mean volumeOr dered By: Dr. Jerry on 05-24-2023 Platelet mean volume (Bld) [Entitic vol] 9.8 fL 6.2-12.0 [facility] Determination of erythrocyte mean corpuscular volume (MCV)Ordered By: Dr. Jerry on 05-24-2023 MCV (RBC) [Entitic vol] 100.0 fL 81-99 [facility] Direct bilirubinOrdered By: Dr. Jerry on 05-24-2023 Bilirubin.direct [Mass/Vol] mg/dL 0.00-0.30 [facility] Hematocrit Auto (Bld) [Volum e fraction]Ordered By: Dr. Jerry on 05-24-2023 Hematocrit (Bld) [Volume fraction] 38.8 % 37-47 [facility] Ketones Test strip Ql (U)Ord ered By: Dr. Jerry on 05-24-2023 Ketones Ql (U) Negative Negative [facility] - Chemistry and C hemistry - challengeOrdered By: Dr. Jerry on 05-24-2023 ALP [Catalytic activity/Vol] 57 U/L 45-117 [facility] ALT [Catalytic activity/Vol] 27 U/L 13-56 [facility] CO2 [Moles/Vol] 19.0 mmol/L 21.0-32.0 [facility] Globulin (S) [Mass/Vol] 3.8 g/dL 2.2-4.2 [facility] Lipase [Catalytic activity/Vol] 64 U/L 13-75 [facility] Comment on above: Please note:LIPASE r evised reference range effective 23. New Lipase methodology. Expected to produce lower values than the previous assay method. NEW Reference Range: 13 - 75 U/L Urea nitrogen/Creatinine [Mass ratio] 9.1 mg/mg 10-20 [facility] - Hematology and Cell countsOrdered By: Dr. Jerry on 05-24-2023 Erythrocyte distribution width (RBC) [Entitic vol] 46.2 fL 35.1-43.9 [facility] Erythrocyte distribution width (RBC) [Ratio] 12.6 % 11.6-14.6 [facility] Immature granulocytes/100 WBC (Bld) 0.400 % 0.0-0.9 [facility] Comment on above: IG% - Immature Granu locytes (promyelocytes, myelocytes and metamyelocytes) > 1% indicates that a LEFT SHIFT is Present. MCH (RBC) [Entitic mass] 33.2 pg 27.0-32.0 [facility] Nucleated RBC/100 WBC (Bld) [Ratio] 0 % 0-5 [facility] MCHC Auto (RBC) [Mass/Vol]Or dered By: Dr. Jerry on 05-24-2023 MCHC (RBC) [Mass/Vol] 33.2 g/dL 32-36 [facility] Mucus LM Ql (Urine sed)Order ed By: Dr. Jerry on 05-24-2023 Mucus Ql (Urine sed) 0 SEEN /hpf [facility] Nitrite Test strip Ql (U)Ord ered By: Dr. Jerry on 05-24-2023 Nitrite Ql (U) Negative Negative [facility] No Panel InformationOrdered By: Dr. Jerry on 05-24-2023 Estimated Creatinine Clearance Calc 45.99 ml/min [facility] Estimated GFR (MDRD) Amer 56 mL/min >60 [facility] Comment on above: GFR Calc Estimated GFR (MDRD) Non-Af Amer 46 mL/min >60 [facility] Comment on above: Non- GFR Calc Ethyl Alcohol Level 193.0 mg/dL [facility] Comment on above: The serum:whole bloo d ethanol ratio is approximately 1.14and varies slightly with hematocrit. Medical Alcohol reference interval and critical value innon-tolerant individuals; 50 - 100 Impairment 100 Intoxication 100 - 250 Severe Poisoning 250 - 400 Deep/possible fatal coma Platelets bldOrdered By: Dr. Jerry on 05-24-2023 Platelets (Bld) [#/Vol] 276 10*3/uL 150-450 [facility] Protein Test strip Ql (U)Ord ered By: Dr. Jerry on 05-24-2023 Protein Ql (U) Negative Negative [facility] Serum or plasma acetone alphonso urement (mass/volume)Ordered By: Dr. Jerry on 05-24-2023 Acetone [Mass/Vol] Negative NEG [facility] Serum or plasma albumin alphonso urement (mass/volume)Ordered By: Dr. Jerry on 05-24-2023 Albumin [Mass/Vol] 2.9 g/dL 3.2-5.0 [facility] Serum or plasma calcium alphonso urement (mass/volume)Ordered By: Dr. Jerry on 05-24-2023 Calcium [Mass/Vol] 7.5 mg/dL 8.5-10.1 [facility] Serum or plasma creatinine m easurement (mass/volume)Ordered By: Dr. Jerry on 05-24-2023 Creatinine [Mass/Vol] 1.32 mg/dL 0.55-1.02 [facility] Comment on above: The validity of the calculated GFR & GFRAA in patients over 70 years has not been determined. Clinical correlation is essential. Serum or plasma urea nitroge n measurement (mass/volume)Ordered By: Dr. Jerry on 05-24-2023 Urea nitrogen [Mass/Vol] 12 mg/dL 7-18 [facility] Squamous epithelial cells de tection in urine sediment by light microscopyOrdered By: Dr. Jerry on 05-24-2023 Epithelial cells.squamous LM Ql (Urine sed) 0 SEEN /hpf 5-10 [facility] Thin prep Papanicolaou smear with manual screeningOrdered By: Dr. Jerry on 05-24-2023 Thin prep Papanicolaou smear with manual screening 47 U/L 15-37 [facility] Comment on above: Moderate Hemolysis, Result may be falsely increased. Thin prep Papanicolaou smear with manual screening 7 5-15 [facility] Urine blood detectionOrdered By: Dr. Jerry on 05-24-2023 RBC Ql (U) Negative Negative [facility] RBC Ql (U) 0 SEEN /hpf 0-5 [facility] Urine clarityOrdered By: Dr. Jerry on 05-24-2023 Clarity (U) Clear Clear [facility] Urine color determinationOrd ered By: Dr. Jerry on 05-24-2023 Color (U) Yellow Yellow [facility] Urine glucose detectionOrder ed By: Dr. Jerry on 05-24-2023 Glucose Ql (U) 1000 mg/dl Normal [facility] Urine leukocyte esterase det ection by dipstickOrdered By: Dr. Jerry on 05-24-2023 Leukocyte esterase Test strip Ql (U) Negative Negative [facility] Urine pHOrdered By: Dr. Maximiliano morris on 05-24-2023 pH (U) 6.5 [pH] 5.0 - 8.0 [facility] Urine sediment bacteria coun t by microscopy (number/high power field)Ordered By: Dr. Jerry on 05-24-2023 Bacteria LM.HPF (Urine sed) [#/Area] 0 /[HPF] None Seen [facility] Urine specific gravity measu rementOrdered By: Dr. Jerry on 05-24-2023 Specific gravity (U) [Rel density] 1.005 1.002-1.030 [facility] Urobilinogen Auto test strip Ql (U)Ordered By: Dr. Jerry on 05-24-2023 Urobilinogen Ql (U) Normal mg/dl Normal [facility] Basophil percentageOrdered B y: Milana Garcia on 05-19-2023 Basophil percentage 2.6 mg/dL 2.5-4.9 [facility] Bilirubin [Mass/Vol] 0.30 mg/dL 0.20-1.00 [facility] Comment on above: For patients on eltr ombopag therapy, use of Dimension [place] TBIL is not recommended. Protein [Mass/Vol] 7.2 g/dL 6.4-8.2 [facility] Direct bilirubinOrdered By: Milana Garcia on 05-19-2023 Bilirubin.direct [Mass/Vol] 0.11 mg/dL 0.00-0.30 [facility] - Chemistry and C hemistry - challengeOrdered By: Milana Garcia on 05-19-2023 ALP [Catalytic activity/Vol] 69 U/L 45-117 [facility] ALT [Catalytic activity/Vol] 22 U/L 13-56 [facility] Cobalamin (Vitamin B12) [Mass/Vol] 361 pg/mL 211-911 [facility] Free T4 [Mass/Vol] 0.78 ng/dL 0.76-1.46 [facility] Globulin (S) [Mass/Vol] 3.8 g/dL 2.2-4.2 [facility] Magnesium [Mass/Vol] 1.8 mg/dL 1.6-2.6 [facility] No Panel InformationOrdered By: Milana Garcia on 05-19-2023 Thyroid Stimulating Hormone (TSH) 1.95 uIU/mL 0.358-3.74 [facility] Serum or plasma albumin alphonso urement (mass/volume)Ordered By: Milana Garcia on 05-19-2023 Albumin [Mass/Vol] 3.4 g/dL 3.2-5.0 [facility] Serum or plasma ferritin alexis surement (mass/volume)Ordered By: Milana Garcia on 05-19-2023 Ferritin [Mass/Vol] 69 ng/mL 8-252 [facility] Serum or plasma folate measu rement (mass/volume)Ordered By: Milana Garcia on 05-19-2023 Folate [Mass/Vol] 4.00 ng/mL 3.1-55.4 [facility] Thin prep Papanicolaou smear with manual screeningOrdered By: Milana Garcia on 05-19-2023 Thin prep Papanicolaou smear with manual screening 18 U/L 15-37 [facility] No Panel InformationOrdered By: Dr. Dyer on 05-05-2023 Troponin I High Sensitivity < 3 pg/mL 3.0-54.0 [facility] Comment on above: Please Note: [place] t Units and Gender Specific Reference Ranges. For more information see Policy Stat Procedure [place] High Sensitivity Troponin (TNIH) and attachments. Absolute lymphocyte countOrd ered By: Dr. Dyer on 05-04-2023 Lymphocytes Auto (Unsp spec) [#/Vol] 3.17 10*3/uL 0.83-4.51 [facility] Basophil percentageOrdered B y: Dr. Dyer on 05-04-2023 Basophils/100 WBC (Bld) 0.4 % 0-1 [facility] Chloride [Moles/Vol] 105 mmol/L 98-107 [facility] Eosinophils/100 WBC (Bld) 2.7 % 0-5 [facility] Glucose [Mass/Vol] 103 mg/dL 74-106 [facility] Comment on above: Fasting Glucose resu lt from 100 to 125 mg/dL suggests IMPAIRED HOMEOSTASIS per A.D.A. criteria. Neutrophils (Bld) [#/Vol] 4.6 10*3/uL 2.0-7.7 [facility] Neutrophils/100 WBC (Bld) 51.3 % 47-70 [facility] Potassium [Moles/Vol] 3.4 mmol/L 3.5-5.1 [facility] Sodium [Moles/Vol] 138 mmol/L 136-145 [facility] WBC (Bld) [#/Vol] 8.9 10*3/uL 4.4-11.0 [facility] Blood erythrocytes count (nu mber/volume)Ordered By: Dr. Dyer on 05-04-2023 RBC (Bld) [#/Vol] 3.72 10*6/uL 4.2-5.4 [facility] Blood hemoglobin measurement (mass/volume)Ordered By: Dr. Dyer on 05-04-2023 Hemoglobin (Bld) [Mass/Vol] 12.1 g/dL 12.0-15.0 [facility] Blood lymphocytes/100 leukoc ytesOrdered By: Dr. Dyer on 05-04-2023 Lymphocytes/100 WBC (Bld) 35.6 % 19-41 [facility] Blood monocytes/100 leukocyt esOrdered By: Dr. Dyer on 05-04-2023 Monocytes/100 WBC (Bld) 9.4 % 0-10 [facility] Blood platelet mean volumeOr dered By: Dr. Dyer on 05-04-2023 Platelet mean volume (Bld) [Entitic vol] 9.4 fL 6.2-12.0 [facility] Determination of erythrocyte mean corpuscular volume (MCV)Ordered By: Dr. Dyer on 05-04-2023 MCV (RBC) [Entitic vol] 98.4 fL 81-99 [facility] Hematocrit Auto (Bld) [Volum e fraction]Ordered By: Dr. Dyer on 05-04-2023 Hematocrit (Bld) [Volume fraction] 36.6 % 37-47 [facility] - Chemistry and C hemistry - challengeOrdered By: Dr. Dyer on 05-04-2023 CO2 [Moles/Vol] 27.0 mmol/L 21.0-32.0 [facility] Urea nitrogen/Creatinine [Mass ratio] 19.2 mg/mg 10-20 [facility] - Hematology and Cell countsOrdered By: Dr. Dyer on 05-04-2023 Erythrocyte distribution width (RBC) [Entitic vol] 47.8 fL 35.1-43.9 [facility] Erythrocyte distribution width (RBC) [Ratio] 13.3 % 11.6-14.6 [facility] Immature granulocytes/100 WBC (Bld) 0.600 % 0.0-0.9 [facility] Comment on above: IG% - Immature Granu locytes (promyelocytes, myelocytes and metamyelocytes) > 1% indicates that a LEFT SHIFT is Present. MCH (RBC) [Entitic mass] 32.5 pg 27.0-32.0 [facility] Nucleated RBC/100 WBC (Bld) [Ratio] 0 % 0-5 [facility] MCHC Auto (RBC) [Mass/Vol]Or dered By: Dr. Dyer on 05-04-2023 MCHC (RBC) [Mass/Vol] 33.1 g/dL 32-36 [facility] No Panel InformationOrdered By: Dr. Dyer on 05-04-2023 Estimated Creatinine Clearance Calc 83.15 ml/min [facility] Estimated GFR (MDRD) Amer 110 mL/min >60 [facility] Comment on above: GFR Calc Estimated GFR (MDRD) Non-Af Amer 91 mL/min >60 [facility] Comment on above: Non- GFR Calc Platelets bldOrdered By: Dr. Dyer on 05-04-2023 Platelets (Bld) [#/Vol] 274 10*3/uL 150-450 [facility] Serum or plasma calcium alphonso urement (mass/volume)Ordered By: Dr. Dyer on 05-04-2023 Calcium [Mass/Vol] 8.6 mg/dL 8.5-10.1 [facility] Serum or plasma creatinine m easurement (mass/volume)Ordered By: Dr. Dyer on 05-04-2023 Creatinine [Mass/Vol] 0.73 mg/dL 0.55-1.02 [facility] Comment on above: The validity of the calculated GFR & GFRAA in patients over 70 years has not been determined. Clinical correlation is essential. Serum or plasma urea nitroge n measurement (mass/volume)Ordered By: Dr. Dyer on 05-04-2023 Urea nitrogen [Mass/Vol] 14 mg/dL 06-15 [facility] Thin prep Papanicolaou smear with manual screeningOrdered By: Dr. Dyer on 05-04-2023 Thin prep Papanicolaou smear with manual screening 6 - [facility] - Microbiology an d Antimicrobial susceptibilityOrdered By: Dr. Jacobs on 04-15-2023 Bacteria identified Cx Nom (Bld) No growth in 5 days. [facility] Absolute lymphocyte countOrd ered By: Dr. Kiran on 04-11-2023 Lymphocytes Auto (Unsp spec) [#/Vol] 2.75 10*3/uL 0.83-4.51 [facility] Basophil percentageOrdered B y: Dr. Kiran on 04-11-2023 Basophils/100 WBC (Bld) 0.3 % 0-1 [facility] Chloride [Moles/Vol] 105 mmol/L 98-107 [facility] Eosinophils/100 WBC (Bld) 0.7 % 0-5 [facility] Glucose [Mass/Vol] 143 mg/dL 74-106 [facility] Comment on above: Fasting Glucose resu lt greater than or equal to 126 mg/dL suggests DIABETES MELLITUS per A.D.A. criteria. Neutrophils (Bld) [#/Vol] 7.8 10*3/uL 2.0-7.7 [facility] Neutrophils/100 WBC (Bld) 67.1 % 47-70 [facility] Potassium [Moles/Vol] 4.1 mmol/L 3.5-5.1 [facility] Sodium [Moles/Vol] 137 mmol/L 136-145 [facility] WBC (Bld) [#/Vol] 11.6 10*3/uL 4.4-11.0 [facility] Basophil percentageOrdered B y: Dr. Johnson on 04-11-2023 Lactate [Moles/Vol] 0.6 mmol/L 0.4-2.0 [facility] Blood erythrocytes count (nu mber/volume)Ordered By: Dr. Kiran on 04-11-2023 RBC (Bld) [#/Vol] 3.87 10*6/uL 4.2-5.4 [facility] Blood hemoglobin measurement (mass/volume)Ordered By: Dr. Kiran on 04-11-2023 Hemoglobin (Bld) [Mass/Vol] 12.6 g/dL 12.0-15.0 [facility] Blood lymphocytes/100 leukoc ytesOrdered By: Dr. Kiran on 04-11-2023 Lymphocytes/100 WBC (Bld) 23.8 % 19-41 [facility] Blood monocytes/100 leukocyt esOrdered By: Dr. Kiran on 04-11-2023 Monocytes/100 WBC (Bld) 7.8 % 0-10 [facility] Blood platelet mean volumeOr dered By: Dr. Kiran on 04-11-2023 Platelet mean volume (Bld) [Entitic vol] 9.7 fL 6.2-12.0 [facility] Determination of erythrocyte mean corpuscular volume (MCV)Ordered By: Dr. Kiran on 04-11-2023 MCV (RBC) [Entitic vol] 100.5 fL 81-99 [facility] Glucose Glucometer (dC) [M ass/Vol]Ordered By: Dr. Johnson on 04-11-2023 Glucose [Mass/Vol] 95 mg/dL 74-106 [facility] Comment on above: MANAGEMENT OF PATIEN T CARE PER NURSING PROTOCOL Hematocrit Auto (Bld) [Volum e fraction]Ordered By: Dr. Kiran on 04-11-2023 Hematocrit (Bld) [Volume fraction] 38.9 % 37-47 [facility] - Chemistry and C hemistry - challengeOrdered By: Dr. Kiran on 04-11-2023 CO2 [Moles/Vol] 24.0 mmol/L 21.0-32.0 [facility] Urea nitrogen/Creatinine [Mass ratio] 23.2 mg/mg 10-20 [facility] - Hematology and Cell countsOrdered By: Dr. Kiran on 04-11-2023 Erythrocyte distribution width (RBC) [Entitic vol] 47.8 fL 35.1-43.9 [facility] Erythrocyte distribution width (RBC) [Ratio] 13.1 % 11.6-14.6 [facility] Immature granulocytes/100 WBC (Bld) 0.300 % 0.0-0.9 [facility] Comment on above: IG% - Immature Granu locytes (promyelocytes, myelocytes and metamyelocytes) > 1% indicates that a LEFT SHIFT is Present. MCH (RBC) [Entitic mass] 32.6 pg 27.0-32.0 [facility] Nucleated RBC/100 WBC (Bld) [Ratio] 0 % 0-5 [facility] MCHC Auto (RBC) [Mass/Vol]Or dered By: Dr. Kiran on 04-11-2023 MCHC (RBC) [Mass/Vol] 32.4 g/dL 32-36 [facility] No Panel InformationOrdered By: Dr. Kiran on 04-11-2023 Estimated Creatinine Clearance Calc 74.03 ml/min [facility] Estimated GFR (MDRD) Amer 97 mL/min >60 [facility] Comment on above: GFR Calc Estimated GFR (MDRD) Non-Af Amer 80 mL/min >60 [facility] Comment on above: Non- GFR Calc Platelets bldOrdered By: Dr. Kiran on 04-11-2023 Platelets (Bld) [#/Vol] 246 10*3/uL 150-450 [facility] Serum or plasma calcium alphonso urement (mass/volume)Ordered By: Dr. Kiran on 04-11-2023 Calcium [Mass/Vol] 8.8 mg/dL 8.5-10.1 [facility] Serum or plasma creatinine m easurement (mass/volume)Ordered By: Dr. Kiran on 04-11-2023 Creatinine [Mass/Vol] 0.82 mg/dL 0.55-1.02 [facility] Comment on above: The validity of the calculated GFR & GFRAA in patients over 70 years has not been determined. Clinical correlation is essential. Serum or plasma urea nitroge n measurement (mass/volume)Ordered By: Dr. Kiran on 04-11-2023 Urea nitrogen [Mass/Vol] 19 mg/dL 7-18 [facility] Thin prep Papanicolaou smear with manual screeningOrdered By: Dr. Kiran on 04-11-2023 Thin prep Papanicolaou smear with manual screening 8 5-15 [facility] Basophil percentageOrdered B y: Dr. Jacobs on 04-10-2023 Chloride [Moles/Vol] 110 mmol/L 98-107 [facility] Glucose [Mass/Vol] 160 mg/dL 74-106 [facility] Comment on above: Fasting Glucose resu lt greater than or equal to 126 mg/dL suggests DIABETES MELLITUS per A.D.A. criteria. Lactate [Moles/Vol] 4.2 mmol/L 0.4-2.0 [facility] Comment on above: Critical Result(s) C alled at: 02:41:04 04/10/2023 by: Campos Levin TO [employer]. Results read back by same. Potassium [Moles/Vol] 4.8 mmol/L 3.5-5.1 [facility] Sodium [Moles/Vol] 140 mmol/L 136-145 [facility] Basophil percentage 0 SEEN /hpf 0-5 [facility] Bilirubin Test strip Ql (U)O rdered By: Dr. Jacobs on 04-10-2023 Bilirubin Ql (U) Negative Negative [facility] HCO3 (BldA) [Moles/Vol]Order ed By: Dr. Jacobs on 04-10-2023 HCO3 (Bld) [Moles/Vol] 20 mmol/L 22-26 [facility] Ketones Test strip Ql (U)Ord ered By: Dr. Jacobs on 04-10-2023 Ketones Ql (U) Negative Negative [facility] - Chemistry and C hemistry - challengeOrdered By: Dr. Jacobs on 04-10-2023 CO2 [Moles/Vol] 19.0 mmol/L 21.0-32.0 [facility] Urea nitrogen/Creatinine [Mass ratio] 15.8 mg/mg 10-20 [facility] CO2 [Moles/Vol] 21 mmol/L 23-33 [facility] - Microbiology an d Antimicrobial susceptibilityOrdered By: David Jacobs on 04-10-2023 Bacteria identified Cx Nom (Bld) No growth in 5 days. [facility] Mucus LM Ql (Urine sed)Order ed By: Dr. Jacobs on 04-10-2023 Mucus Ql (Urine sed) 0 SEEN /hpf [facility] Nitrite Test strip Ql (U)Ord ered By: Dr. Jacobs on 04-10-2023 Nitrite Ql (U) Negative Negative [facility] No Panel InformationOrdered By: Dr. Jacobs on 04-10-2023 Estimated Creatinine Clearance Calc 60.10 ml/min [facility] Estimated GFR (MDRD) Amer 76 mL/min >60 [facility] Comment on above: GFR Calc Estimated GFR (MDRD) Non-Af Amer 63 mL/min >60 [facility] Comment on above: Non- GFR Calc Troponin I High Sensitivity < 3 pg/mL 3.0-54.0 [facility] Comment on above: Please Note: [place] t Units and Gender Specific Reference Ranges. For more information see Policy Stat Procedure [place] High Sensitivity Troponin (TNIH) and attachments. Bed Mix Venous Bld PCO2 at Pat Temp 40.5 mmHg 41-51 [facility] Blood Gas Specimen Type GELACIO [facility] Oxygen Delivery Device Room Air [facility] Venous Blood Base Excess -7 mmol/L -1.0-3.5 [facility] No Panel InformationOrdered By: Dr. Kiran on 04-10-2023 Troponin I High Sensitivity < 3 pg/mL 3.0-54.0 [facility] Comment on above: Please Note: [place] Units and Gender Specific Reference Ranges. For more information see Policy Stat Procedure [place] High Sensitivity Troponin (TNIH) and attachments. PO2 venousOrdered By: Dr. Jose wood on 04-10-2023 Oxygen (BldV) [Partial pressure] 54 mm[Hg] 25-40 [facility] Protein Test strip Ql (U)Ord ered By: Dr. Jacobs on 04-10-2023 Protein Ql (U) Negative Negative [facility] Serum or plasma acetone alphonso urement (mass/volume)Ordered By: Dr. Jacobs on 04-10-2023 Acetone [Mass/Vol] Negative NEG [facility] Serum or plasma calcium alphonso urement (mass/volume)Ordered By: Dr. Jacobs on 04-10-2023 Calcium [Mass/Vol] 7.3 mg/dL 8.5-10.1 [facility] Serum or plasma creatinine m easurement (mass/volume)Ordered By: Dr. Jacobs on 04-10-2023 Creatinine [Mass/Vol] 1.01 mg/dL 0.55-1.02 [facility] Comment on above: The validity of the calculated GFR & GFRAA in patients over 70 years has not been determined. Clinical correlation is essential. Serum or plasma urea nitroge n measurement (mass/volume)Ordered By: Dr. Jacobs on 04-10-2023 Urea nitrogen [Mass/Vol] 16 mg/dL 7-18 [facility] Squamous epithelial cells de tection in urine sediment by light microscopyOrdered By: Dr. Jacobs on 04-10-2023 Epithelial cells.squamous LM Ql (Urine sed) 0 SEEN /hpf 5-10 [facility] Thin prep Papanicolaou smear with manual screeningOrdered By: Dr. Jacobs on 04-10-2023 Thin prep Papanicolaou smear with manual screening 11 5-15 [facility] Urine blood detectionOrdered By: Dr. Jacobs on 04-10-2023 RBC Ql (U) Negative Negative [facility] RBC Ql (U) 0 SEEN /hpf 0-5 [facility] Urine clarityOrdered By: Dr. Jacobs on 04-10-2023 Clarity (U) Clear Clear [facility] Urine color determinationOrd ered By: Dr. Jacobs on 04-10-2023 Color (U) Yellow Yellow [facility] Urine glucose detectionOrder ed By: Dr. Jacobs on 04-10-2023 Glucose Ql (U) 1000 mg/dl Normal [facility] Urine leukocyte esterase det ection by dipstickOrdered By: Dr. Jacobs on 04-10-2023 Leukocyte esterase Test strip Ql (U) Negative Negative [facility] Urine pHOrdered By: Dr. Caren garza on 04-10-2023 pH (U) 6.5 [pH] 5.0 - 8.0 [facility] Urine sediment bacteria coun t by microscopy (number/high power field)Ordered By: Dr. Jacobs on 04-10-2023 Bacteria LM.HPF (Urine sed) [#/Area] 0 /[HPF] None Seen [facility] Urine specific gravity measu rementOrdered By: Dr. Jacobs on 04-10-2023 Specific gravity (U) [Rel density] 1.010 1.002-1.030 [facility] Urobilinogen Auto test strip Ql (U)Ordered By: Dr. Jacobs on 04-10-2023 Urobilinogen Ql (U) Normal mg/dl Normal [facility] Vital signsOrdered By: Dr. Del mackay on 04-10-2023 Oxygen saturation in Blood 84 % 50-70 [facility] pH measurementOrdered By: Dr Jael Jacobs on 04-10-2023 pH (Unsp spec) 7.29 [pH] 7.32-7.42 [facility] Absolute lymphocyte countOrd ered By: Dr. Jacobs on 04-09-2023 Lymphocytes Auto (Unsp spec) [#/Vol] 0.91 10*3/uL 0.83-4.51 [facility] Basophil percentageOrdered B y: Dr. Jacobs on 04-09-2023 Basophils/100 WBC (Bld) 0.2 % 0-1 [facility] Eosinophils/100 WBC (Bld) 0.4 % 0-5 [facility] Neutrophils (Bld) [#/Vol] 6.8 10*3/uL 2.0-7.7 [facility] Neutrophils/100 WBC (Bld) 85.1 % 47-70 [facility] WBC (Bld) [#/Vol] 8.0 10*3/uL 4.4-11.0 [facility] Blood erythrocytes count (nu mber/volume)Ordered By: Dr. Jacobs on 04-09-2023 RBC (Bld) [#/Vol] 3.87 10*6/uL 4.2-5.4 [facility] Blood hemoglobin measurement (mass/volume)Ordered By: Dr. Jacobs on 04-09-2023 Hemoglobin (Bld) [Mass/Vol] 12.5 g/dL 12.0-15.0 [facility] Blood lymphocytes/100 leukoc ytesOrdered By: Dr. Jacobs on 04-09-2023 Lymphocytes/100 WBC (Bld) 11.3 % 19-41 [facility] Blood monocytes/100 leukocyt esOrdered By: Dr. Jacobs on 04-09-2023 Monocytes/100 WBC (Bld) 1.6 % 0-10 [facility] Blood platelet mean volumeOr dered By: Dr. Jacobs on 04-09-2023 Platelet mean volume (Bld) [Entitic vol] 10.0 fL 6.2-12.0 [facility] Determination of erythrocyte mean corpuscular volume (MCV)Ordered By: Dr. Jacobs on 04-09-2023 MCV (RBC) [Entitic vol] 99.5 fL 81-99 [facility] Hematocrit Auto (Bld) [Volum e fraction]Ordered By: Dr. Jacobs on 04-09-2023 Hematocrit (Bld) [Volume fraction] 38.5 % 37-47 [facility] - Hematology and Cell countsOrdered By: Dr. Jacobs on 04-09-2023 Erythrocyte distribution width (RBC) [Entitic vol] 47.4 fL 35.1-43.9 [facility] Erythrocyte distribution width (RBC) [Ratio] 13.0 % 11.6-14.6 [facility] Immature granulocytes/100 WBC (Bld) 1.400 % 0.0-0.9 [facility] Comment on above: IG% - Immature Granu locytes (promyelocytes, myelocytes and metamyelocytes) > 1% indicates that a LEFT SHIFT is Present. MCH (RBC) [Entitic mass] 32.3 pg 27.0-32.0 [facility] Nucleated RBC/100 WBC (Bld) [Ratio] 0 % 0-5 [facility] MCHC Auto (RBC) [Mass/Vol]Or dered By: Dr. Jacobs on 04-09-2023 MCHC (RBC) [Mass/Vol] 32.5 g/dL 32-36 [facility] No Panel InformationOrdered By: Dr. Jacobs on 04-09-2023 D-Dimer Quantitative (PE/DVT) < 0.27 FEU/ug/m 0.27-0.49 [facility] Comment on above: NORMAL D-Dimer level (<0.50) indicates no DVT or PE. Platelets bldOrdered By: Dr. Jacobs on 04-09-2023 Platelets (Bld) [#/Vol] 298 10*3/uL 150-450 [facility] Absolute lymphocyte countOrd ered By: Dr. Gaviria on 03-22-2023 Lymphocytes Auto (Unsp spec) [#/Vol] 2.49 10*3/uL 0.83-4.51 [facility] Amorphous sediment detection in urine sediment by light microscopyOrdered By: Dr. Gaviria on 03-22-2023 Amorphous sediment LM Ql (Urine sed) 1+ URATE [facility] Basophil percentageOrdered B y: Dr. Gaviria on 03-22-2023 Basophil percentage 5-10 SEEN /hpf 0-5 [facility] Basophils/100 WBC (Bld) 0.5 % 0-1 [facility] Bilirubin [Mass/Vol] 0.30 mg/dL 0.20-1.00 [facility] Comment on above: For patients on eltr ombopag therapy, use of Dimension [place] TBIL is not recommended. Chloride [Moles/Vol] 105 mmol/L 98-107 [facility] Eosinophils/100 WBC (Bld) 2.0 % 0-5 [facility] Glucose [Mass/Vol] 146 mg/dL 74-106 [facility] Comment on above: Fasting Glucose resu lt greater than or equal to 126 mg/dL suggests DIABETES MELLITUS per A.D.A. criteria. Lactate [Moles/Vol] 1.4 mmol/L 0.4-2.0 [facility] Neutrophils (Bld) [#/Vol] 7.1 10*3/uL 2.0-7.7 [facility] Neutrophils/100 WBC (Bld) 64.4 % 47-70 [facility] Potassium [Moles/Vol] 4.4 mmol/L 3.5-5.1 [facility] Protein [Mass/Vol] 7.7 g/dL 6.4-8.2 [facility] Sodium [Moles/Vol] 133 mmol/L 136-145 [facility] WBC (Bld) [#/Vol] 11.0 10*3/uL 4.4-11.0 [facility] Bilirubin Test strip Ql (U)O rdered By: Dr. Gaviria on 03-22-2023 Bilirubin Ql (U) Negative Negative [facility] Blood erythrocytes count (nu mber/volume)Ordered By: Dr. Gaviria on 03-22-2023 RBC (Bld) [#/Vol] 4.25 10*6/uL 4.2-5.4 [facility] Blood hemoglobin measurement (mass/volume)Ordered By: Dr. Gaviria on 03-22-2023 Hemoglobin (Bld) [Mass/Vol] 13.6 g/dL 12.0-15.0 [facility] Blood lymphocytes/100 leukoc ytesOrdered By: Dr. Gaviria on 03-22-2023 Lymphocytes/100 WBC (Bld) 22.7 % 19-41 [facility] Blood monocytes/100 leukocyt esOrdered By: Dr. Gaviria on 03-22-2023 Monocytes/100 WBC (Bld) 9.9 % 0-10 [facility] Blood platelet mean volumeOr dered By: Dr. Gaviria on 03-22-2023 Platelet mean volume (Bld) [Entitic vol] 9.7 fL 6.2-12.0 [facility] Determination of erythrocyte mean corpuscular volume (MCV)Ordered By: Dr. Gaviria on 03-22-2023 MCV (RBC) [Entitic vol] 97.6 fL 81-99 [facility] Hematocrit Auto (Bld) [Volum e fraction]Ordered By: Dr. Gaviria on 03-22-2023 Hematocrit (Bld) [Volume fraction] 41.5 % 37-47 [facility] Ketones Test strip Ql (U)Ord ered By: Dr. Gaviria on 03-22-2023 Ketones Ql (U) Negative Negative [facility] - Chemistry and C hemistry - challengeOrdered By: Dr. Gaviria on 03-22-2023 ALP [Catalytic activity/Vol] 71 U/L 45-117 [facility] ALT [Catalytic activity/Vol] 33 U/L 13-56 [facility] CO2 [Moles/Vol] 24.0 mmol/L 21.0-32.0 [facility] Globulin (S) [Mass/Vol] 3.7 g/dL 2.2-4.2 [facility] Urea nitrogen/Creatinine [Mass ratio] 10.8 mg/mg 10-20 [facility] - Hematology and Cell countsOrdered By: Dr. Gaviria on 03-22-2023 Erythrocyte distribution width (RBC) [Entitic vol] 46.9 fL 35.1-43.9 [facility] Erythrocyte distribution width (RBC) [Ratio] 13.1 % 11.6-14.6 [facility] Immature granulocytes/100 WBC (Bld) 0.500 % 0.0-0.9 [facility] Comment on above: IG% - Immature Granu locytes (promyelocytes, myelocytes and metamyelocytes) > 1% indicates that a LEFT SHIFT is Present. MCH (RBC) [Entitic mass] 32.0 pg 27.0-32.0 [facility] Nucleated RBC/100 WBC (Bld) [Ratio] 0 % 0-5 [facility] MCHC Auto (RBC) [Mass/Vol]Or dered By: Dr. Gaviria on 03-22-2023 MCHC (RBC) [Mass/Vol] 32.8 g/dL 32-36 [facility] Mucus LM Ql (Urine sed)Order ed By: Dr. aGviria on 03-22-2023 Mucus Ql (Urine sed) 0 SEEN /hpf [facility] Nitrite Test strip Ql (U)Ord ered By: Dr. Gaviria on 03-22-2023 Nitrite Ql (U) Negative Negative [facility] No Panel InformationOrdered By: Dr. Gaviria on 03-22-2023 Estimated Creatinine Clearance Calc 36.74 ml/min [facility] Estimated GFR (MDRD) Amer 43 mL/min >60 [facility] Comment on above: GFR Calc Estimated GFR (MDRD) Non-Af Amer 35 mL/min >60 [facility] Comment on above: Non- GFR Calc Platelets bldOrdered By: Dr. Gaviria on 03-22-2023 Platelets (Bld) [#/Vol] 316 10*3/uL 150-450 [facility] Protein Test strip Ql (U)Ord ered By: Dr. Gaviria on 03-22-2023 Protein Ql (U) Negative Negative [facility] Serum or plasma albumin alphonso urement (mass/volume)Ordered By: Dr. Gaviria on 03-22-2023 Albumin [Mass/Vol] 4.0 g/dL 3.2-5.0 [facility] Serum or plasma albumin/glob ulin mass ratioOrdered By: Dr. Gaviria on 03-22-2023 Albumin/Globulin [Mass ratio] 1.1 {ratio} 0.9-2.4 [facility] Serum or plasma calcium alphonso urement (mass/volume)Ordered By: Dr. Gaviria on 03-22-2023 Calcium [Mass/Vol] 8.9 mg/dL 8.5-10.1 [facility] Serum or plasma creatinine m easurement (mass/volume)Ordered By: Dr. Gaviria on 03-22-2023 Creatinine [Mass/Vol] 1.67 mg/dL 0.55-1.02 [facility] Comment on above: The validity of the calculated GFR & GFRAA in patients over 70 years has not been determined. Clinical correlation is essential. Serum or plasma urea nitroge n measurement (mass/volume)Ordered By: Dr. Gaviria on 03-22-2023 Urea nitrogen [Mass/Vol] 18 mg/dL 7-18 [facility] Squamous epithelial cells de tection in urine sediment by light microscopyOrdered By: Dr. Gaviria on 03-22-2023 Epithelial cells.squamous LM Ql (Urine sed) 0-5 SEEN /hpf 5-10 [facility] Thin prep Papanicolaou smear with manual screeningOrdered By: Dr. Gaviria on 03-22-2023 Thin prep Papanicolaou smear with manual screening 20 U/L 15-37 [facility] Thin prep Papanicolaou smear with manual screening 4 5-15 [facility] Urine blood detectionOrdered By: Dr. Gaviria on 03-22-2023 RBC Ql (U) Negative Negative [facility] RBC Ql (U) 0 SEEN /hpf 0-5 [facility] Urine clarityOrdered By: Dr. Gaviria on 03-22-2023 Clarity (U) Sl. Cloudy Clear [facility] Urine color determinationOrd ered By: Dr. Gaviria on 03-22-2023 Color (U) Yellow Yellow [facility] Urine glucose detectionOrder ed By: Dr. Gaviria on 03-22-2023 Glucose Ql (U) 1000 mg/dl Normal [facility] Urine leukocyte esterase det ection by dipstickOrdered By: Dr. Gaviria on 03-22-2023 Leukocyte esterase Test strip Ql (U) 100 /ul Negative [facility] Urine pHOrdered By: Dr. Shae ruelas on 03-22-2023 pH (U) 6.5 [pH] 5.0 - 8.0 [facility] Urine sediment bacteria coun t by microscopy (number/high power field)Ordered By: Dr. Gaviria on 03-22-2023 Bacteria LM.HPF (Urine sed) [#/Area] 0 /[HPF] None Seen [facility] Urine specific gravity measu rementOrdered By: Dr. Gaviria on 03-22-2023 Specific gravity (U) [Rel density] 1.005 1.002-1.030 [facility] Urobilinogen Auto test strip Ql (U)Ordered By: Dr. Gaviria on 03-22-2023 Urobilinogen Ql (U) Normal mg/dl Normal [facility] Laboratory - Microbiology an d Antimicrobial susceptibilityon 02-12-2023 SARS-CoV-2 (COVID-19) RNA ALLEY+probe Ql (Unsp spec) Not detected [facility] No Panel Informationon 02-12 Influenza Types A,B Rapid (Clinic) Not detected [facility] Absolute lymphocyte countOrd ered By: Dr. Jacobs on 01-21-2023 Lymphocytes Auto (Unsp spec) [#/Vol] 2.33 10*3/uL 0.83-4.51 [facility] Basophil percentageOrdered B y: Dr. Jacobs on 01-21-2023 Basophils/100 WBC (Bld) 0.5 % 0-1 [facility] Chloride [Moles/Vol] 103 mmol/L 98-107 [facility] Eosinophils/100 WBC (Bld) 2.6 % 0-5 [facility] Glucose [Mass/Vol] 262 mg/dL 74-106 [facility] Comment on above: Glucose result great er than or equal to 200 mg/dLsuggests DIABETES MELLITUS per A.D.A. criteria. Neutrophils (Bld) [#/Vol] 4.7 10*3/uL 2.0-7.7 [facility] Neutrophils/100 WBC (Bld) 59.7 % 47-70 [facility] Potassium [Moles/Vol] 3.6 mmol/L 3.5-5.1 [facility] Sodium [Moles/Vol] 138 mmol/L 136-145 [facility] WBC (Bld) [#/Vol] 7.9 10*3/uL 4.4-11.0 [facility] Blood erythrocytes count (nu mber/volume)Ordered By: Dr. Jacobs on 01-21-2023 RBC (Bld) [#/Vol] 4.32 10*6/uL 4.2-5.4 [facility] Blood hemoglobin measurement (mass/volume)Ordered By: Dr. Jacobs on 01-21-2023 Hemoglobin (Bld) [Mass/Vol] 13.8 g/dL 12.0-15.0 [facility] Blood lymphocytes/100 leukoc ytesOrdered By: Dr. Jacobs on 01-21-2023 Lymphocytes/100 WBC (Bld) 29.3 % 19-41 [facility] Blood monocytes/100 leukocyt esOrdered By: Dr. Jacobs on 01-21-2023 Monocytes/100 WBC (Bld) 7.6 % 0-10 [facility] Blood platelet mean volumeOr dered By: Dr. Jacobs on 01-21-2023 Platelet mean volume (Bld) [Entitic vol] 9.8 fL 6.2-12.0 [facility] Determination of erythrocyte mean corpuscular volume (MCV)Ordered By: Dr. Jacobs on 01-21-2023 MCV (RBC) [Entitic vol] 95.8 fL 81-99 [facility] Hematocrit Auto (Bld) [Volum e fraction]Ordered By: Dr. Jacobs on 01-21-2023 Hematocrit (Bld) [Volume fraction] 41.4 % 37-47 [facility] Laboratory - Chemistry and C hemistry - challengeOrdered By: Dr. Jacobs on 01-21-2023 CO2 [Moles/Vol] 27.0 mmol/L 21.0-32.0 [facility] Urea nitrogen/Creatinine [Mass ratio] 11.8 mg/mg 10-20 [facility] Laboratory - Hematology and Cell countsOrdered By: Dr. Jacobs on 01-21-2023 Erythrocyte distribution width (RBC) [Entitic vol] 44.4 fL 35.1-43.9 [facility] Erythrocyte distribution width (RBC) [Ratio] 12.7 % 11.6-14.6 [facility] Immature granulocytes/100 WBC (Bld) 0.300 % 0.0-0.9 [facility] Comment on above: IG% - Immature Granu locytes (promyelocytes, myelocytes and metamyelocytes) > 1% indicates that a LEFT SHIFT is Present. MCH (RBC) [Entitic mass] 31.9 pg 27.0-32.0 [facility] Nucleated RBC/100 WBC (Bld) [Ratio] 0 % 0-5 [facility] MCHC Auto (RBC) [Mass/Vol]Or dered By: Dr. Jacobs on 01-21-2023 MCHC (RBC) [Mass/Vol] 33.3 g/dL 32-36 [facility] No Panel InformationOrdered By: Dr. Jacobs on 01-21-2023 Troponin I High Sensitivity < 3 pg/mL 3.0-54.0 [facility] Comment on above: Please Note: New Miri t Units and Gender Specific Reference Ranges. For more information see Policy Stat Procedure [place] High Sensitivity Troponin (TNIH) and attachments. D-Dimer Quantitative (PE/DVT) < 0.27 FEU/ug/m 0.27-0.49 [facility] Comment on above: NORMAL D-Dimer level (<0.50) indicates no DVT or PE. Estimated Creatinine Clearance Calc 65.97 ml/min [facility] Estimated GFR (MDRD) Amer 83 mL/min >60 [facility] Comment on above: GFR Calc Estimated GFR (MDRD) Non-Af Amer 69 mL/min >60 [facility] Comment on above: Non- GFR Calc Platelets bldOrdered By: Dr. Jacobs on 01-21-2023 Platelets (Bld) [#/Vol] 314 10*3/uL 150-450 [facility] Serum or plasma calcium alphonso urement (mass/volume)Ordered By: Dr. Jacobs on 01-21-2023 Calcium [Mass/Vol] 8.9 mg/dL 8.5-10.1 [facility] Serum or plasma creatinine m easurement (mass/volume)Ordered By: Dr. Jacobs on 01-21-2023 Creatinine [Mass/Vol] 0.93 mg/dL 0.55-1.02 [facility] Comment on above: The validity of the calculated GFR & GFRAA in patients over 70 years has not been determined. Clinical correlation is essential. Serum or plasma urea nitroge n measurement (mass/volume)Ordered By: Dr. Jacobs on 01-21-2023 Urea nitrogen [Mass/Vol] 11 mg/dL 7-18 [facility] Thin prep Papanicolaou smear with manual screeningOrdered By: Dr. Jacobs on 01-21-2023 Thin prep Papanicolaou smear with manual screening 8 5-15 [facility] Absolute lymphocyte countOrd ered By: Dr. Kay on 11-19-2022 Lymphocytes Auto (Unsp spec) [#/Vol] 2.69 10*3/uL 0.83-4.51 [facility] Basophil percentageOrdered B y: Dr. Kay on 11-19-2022 Basophils/100 WBC (Bld) 0.4 % 0-1 [facility] Chloride [Moles/Vol] 104 mmol/L 98-107 [facility] Eosinophils/100 WBC (Bld) 2.4 % 0-5 [facility] Glucose [Mass/Vol] 194 mg/dL 74-106 [facility] Comment on above: Fasting Glucose resu lt greater than or equal to 126 mg/dL suggests DIABETES MELLITUS per A.D.A. criteria. Neutrophils (Bld) [#/Vol] 1.7 10*3/uL 2.0-7.7 [facility] Neutrophils/100 WBC (Bld) 33.7 % 47-70 [facility] Potassium [Moles/Vol] 3.4 mmol/L 3.5-5.1 [facility] Sodium [Moles/Vol] 138 mmol/L 136-145 [facility] WBC (Bld) [#/Vol] 5.1 10*3/uL 4.4-11.0 [facility] Basophil percentageOrdered B y: Dr. Piña on 11-19-2022 Cholesterol [Mass/Vol] 144 mg/dL <200 [facility] Comment on above: <200 mg/dL Desirable 200-240 mg/dL Borderline >240 mg/dL High Risk Triglyceride [Mass/Vol] 227 mg/dL <199 [facility] Comment on above: The drugs N-Acetylcy steine and Metamizole may falsely depress this assay.Serum Triglycerides Reference Interval Normal <150 mg/dL Borderline high 150 - 199 mg/dL High 200 - 499 mg/dL Very High > or = 500 mg/dL Beta hCG serum qualOrdered B y: Dr. Piña on 11-19-2022 Beta HCG ( test) Ql Negative [facility] Blood erythrocytes count (nu mber/volume)Ordered By: Dr. Kay on 11-19-2022 RBC (Bld) [#/Vol] 3.74 10*6/uL 4.2-5.4 [facility] Blood hemoglobin measurement (mass/volume)Ordered By: Dr. Kay on 11-19-2022 Hemoglobin (Bld) [Mass/Vol] 12.0 g/dL 12.0-15.0 [facility] Blood lymphocytes/100 leukoc ytesOrdered By: Dr. Kay on 11-19-2022 Lymphocytes/100 WBC (Bld) 52.7 % 19-41 [facility] Blood monocytes/100 leukocyt esOrdered By: Dr. Kay on 11-19-2022 Monocytes/100 WBC (Bld) 10.6 % 0-10 [facility] Blood platelet mean volumeOr dered By: Dr. Kay on 11-19-2022 Platelet mean volume (Bld) [Entitic vol] 9.5 fL 6.2-12.0 [facility] Determination of erythrocyte mean corpuscular volume (MCV)Ordered By: Dr. Kay on 11-19-2022 MCV (RBC) [Entitic vol] 92.2 fL 81-99 [facility] Glucose Glucometer (BldC) [M ass/Vol]Ordered By: Dr. Kay on 11-19-2022 Glucose [Mass/Vol] 295 mg/dL 74-106 [facility] Comment on above: MANAGEMENT OF PATIEN T CARE PER NURSING PROTOCOL Hematocrit Auto (Bld) [Volum e fraction]Ordered By: Dr. Kay on 11-19-2022 Hematocrit (Bld) [Volume fraction] 34.5 % 37-47 [facility] Laboratory - Chemistry and C hemistry - challengeOrdered By: Dr. Kay on 11-19-2022 CO2 [Moles/Vol] 28.0 mmol/L 21.0-32.0 [facility] Urea nitrogen/Creatinine [Mass ratio] 14.3 mg/mg 10-20 [facility] - CoagulationOrde red By: Dr. Tavares on 11-19-2022 aPTT Coag (Bld) [Time] 63.5 s 24.1-36.2 [facility] Laboratory - Hematology and Cell countsOrdered By: Dr. Kay on 11-19-2022 Erythrocyte distribution width (RBC) [Entitic vol] 41.3 fL 35.1-43.9 [facility] Erythrocyte distribution width (RBC) [Ratio] 12.2 % 11.6-14.6 [facility] Immature granulocytes/100 WBC (Bld) 0.200 % 0.0-0.9 [facility] Comment on above: IG% - Immature Granu locytes (promyelocytes, myelocytes and metamyelocytes) > 1% indicates that a LEFT SHIFT is Present. MCH (RBC) [Entitic mass] 32.1 pg 27.0-32.0 [facility] Nucleated RBC/100 WBC (Bld) [Ratio] 0 % 0-5 [facility] MCHC Auto (RBC) [Mass/Vol]Or dered By: Dr. Kay on 11-19-2022 MCHC (RBC) [Mass/Vol] 34.8 g/dL 32-36 [facility] No Panel InformationOrdered By: Dr. Kay on 11-19-2022 Estimated Creatinine Clearance Calc 97.38 ml/min [facility] Estimated GFR (MDRD) Amer 131 mL/min >60 [facility] Comment on above: GFR Calc Estimated GFR (MDRD) Non-Af Amer 108 mL/min >60 [facility] Comment on above: Non- GFR Calc No Panel InformationOrdered By: Dr. Piña on 11-19-2022 Troponin I High Sensitivity 307 pg/mL 3.0-54.0 [facility] Comment on above: Critical Result(s) C alled at: 04:53:08 11/19/2022 by: Kannan BRAUN RN ([facility]) Results read back by same. Please Note: New Test Units and Gender Specific Reference Ranges. For more information see Policy Stat Procedure [place] High Sensitivity Troponin (TNIH) and attachments. Platelets bldOrdered By: Dr. Kay on 11-19-2022 Platelets (Bld) [#/Vol] 194 10*3/uL 150-450 [facility] Serum or plasma calcium alphonso urement (mass/volume)Ordered By: Dr. Kay on 11-19-2022 Calcium [Mass/Vol] 7.7 mg/dL 8.5-10.1 [facility] Serum or plasma cholesterol in HDL measurement (mass/volume)Ordered By: Dr. Piña on 11-19-2022 Cholesterol in HDL [Mass/Vol] 42 mg/dL >40 [facility] Comment on above: The drugs N-Acetylcy steine and Metamizole may falsely depress this assay. Reference Range HDL <40 mg/dL Low HDL Cholesterol HDL >or= 60 mg/dL High HDL Cholesterol Serum or plasma cholesterol in VLDL measurement (mass/volume)Ordered By: Dr. Piña on 11-19-2022 Cholesterol in VLDL [Mass/Vol] 45 mg/dL 5-40 [facility] Serum or plasma creatinine m easurement (mass/volume)Ordered By: Dr. Kay on 11-19-2022 Creatinine [Mass/Vol] 0.63 mg/dL 0.55-1.02 [facility] Comment on above: The validity of the calculated GFR & GFRAA in patients over 70 years has not been determined. Clinical correlation is essential. Serum or plasma low density lipoprotein (LDL) cholesterol measurement (mass/volume)Ordered By: Dr. Piña on 11-19-2022 Cholesterol in LDL [Mass/Vol] 57 mg/dL 0-130 [facility] Serum or plasma urea nitroge n measurement (mass/volume)Ordered By: Dr. Kay on 11-19-2022 Urea nitrogen [Mass/Vol] 9 mg/dL 7-18 [facility] Thin prep Papanicolaou smear with manual screeningOrdered By: Dr. Kay on 11-19-2022 Thin prep Papanicolaou smear with manual screening 6 5-15 [facility] Basophil percentageOrdered B y: Dr. Piña on 11-18-2022 Bilirubin [Mass/Vol] 0.50 mg/dL 0.20-1.00 [facility] Comment on above: For patients on eltr ombopag therapy, use of Dimension [place] TBIL is not recommended. Protein [Mass/Vol] 7.4 g/dL 6.4-8.2 [facility] Direct bilirubinOrdered By: Dr. Piña on 11-18-2022 Bilirubin.direct [Mass/Vol] 0.13 mg/dL 0.00-0.30 [facility] INR in Blood by Coagulation assayOrdered By: Dr. Tavares on 11-18-2022 INR Coag (Bld) [Relative time] 1.0 {INR} [facility] Laboratory - Chemistry and C hemistry - challengeOrdered By: Dr. Piña on 11-18-2022 ALP [Catalytic activity/Vol] 82 U/L 45-117 [facility] ALT [Catalytic activity/Vol] 33 U/L 13-56 [facility] Globulin (S) [Mass/Vol] 4.0 g/dL 2.2-4.2 [facility] Laboratory - CoagulationOrde red By: Dr. Tavares on 11-18-2022 PT Coag (PPP) [Time] 12.9 s 11.7-14.9 [facility] No Panel InformationOrdered By: Dr. Tavares on 11-18-2022 D-Dimer Quantitative (PE/DVT) 0.40 FEU/ug/m 0.27-0.49 [facility] Comment on above: NORMAL D-Dimer level (<0.50) indicates no DVT or PE. Serum or plasma albumin alphonso urement (mass/volume)Ordered By: Dr. Piña on 11-18-2022 Albumin [Mass/Vol] 3.4 g/dL 3.2-5.0 [facility] Thin prep Papanicolaou smear with manual screeningOrdered By: Dr. Piña on 11-18-2022 Thin prep Papanicolaou smear with manual screening 26 U/L 15-37 [facility] Absolute lymphocyte counton 09-05-2022 Lymphocytes Auto (Unsp spec) [#/Vol] 3.03 10*3/uL 0.83-4.51 [facility] Work Phone: Basophil percentageon 2021 Basophils/100 WBC (Bld) 0.5 % 0-1 [facility] Work Phone: Chloride [Moles/Vol] 105 mmol/L 98-107 [facility]: Eosinophils/100 WBC (Bld) 3.3 % 0-5 [facility] Work Phone: Glucose [Mass/Vol] 246 mg/dL 74-106 [facility] Work Phone: Comment on above: Glucose result great er than or equal to 200 mg/dLsuggests DIABETES MELLITUS per A.D.A. criteria. Neutrophils (Bld) [#/Vol] 3.8 10*3/uL 2.0-7.7 [facility] Work Phone: Neutrophils/100 WBC (Bld) 48.3 % 47-70 [facility] Work Phone: Potassium [Moles/Vol] 3.6 mmol/L 3.5-5.1 [facility] Work Phone: Sodium [Moles/Vol] 142 mmol/L 136-145 [facility] Work Phone: WBC (Bld) [#/Vol] 7.8 10*3/uL 4.4-11.0 [facility] Work Phone: [phone] Blood erythrocytes count (nu mber/volume)on 09-05-2022 RBC (Bld) [#/Vol] 4.17 10*6/uL 4.2-5.4 [facility] Work Phone: Blood hemoglobin measurement (mass/volume)on 09-05-2022 Hemoglobin (Bld) [Mass/Vol] 13.1 g/dL 12.0-15.0 [facility] Work Phone: Blood lymphocytes/100 leukoc yteson 09-05-2022 Lymphocytes/100 WBC (Bld) 39.0 % 19-41 [facility] Work Phone: Blood monocytes/100 leukocyt eson 09-05-2022 Monocytes/100 WBC (Bld) 8.5 % 0-10 [facility] Work Phone: Blood platelet mean volumeon 09-05-2022 Platelet mean volume (Bld) [Entitic vol] 9.6 fL 6.2-12.0 [facility] Work Phone: Determination of erythrocyte mean corpuscular volume (MCV)on 09-05-2022 MCV (RBC) [Entitic vol] 92.1 fL 81-99 [facility] Work Phone: Hematocrit Auto (Bld) [Volum e fraction]on 09-05-2022 Hematocrit (Bld) [Volume fraction] 38.4 % 37-47 [facility] Work Phone: Laboratory - Chemistry and C hemistry - challengeon 09-05-2022 CO2 [Moles/Vol] 27.0 mmol/L 21.0-32.0 [facility] Work Phone: Urea nitrogen/Creatinine [Mass ratio] 16.7 mg/mg 10-20 [facility] Work Phone: Laboratory - Hematology and Cell countson 09-05-2022 Erythrocyte distribution width (RBC) [Entitic vol] 42.3 fL 35.1-43.9 [facility] Work Phone: Erythrocyte distribution width (RBC) [Ratio] 12.7 % 11.6-14.6 [facility] Work Phone: Immature granulocytes/100 WBC (Bld) 0.400 % 0.0-0.9 [facility] Work Phone: Comment on above: IG% - Immature Granu locytes (promyelocytes, myelocytes and metamyelocytes) > 1% indicates that a LEFT SHIFT is Present. MCH (RBC) [Entitic mass] 31.4 pg 27.0-32.0 [facility] Work Phone: Nucleated RBC/100 WBC (Bld) [Ratio] 0 % 0-5 [facility] Work Phone: MCHC Auto (RBC) [Mass/Vol]on 09-05-2022 MCHC (RBC) [Mass/Vol] 34.1 g/dL 32-36 [facility] Work Phone: No Panel Informationon 09-05 Estimated Creatinine Clearance Calc 78.65 ml/min [facility] Work Phone: Estimated GFR (MDRD) Amer 103 mL/min >60 [facility] Work Phone: Comment on above: GFR Calc Estimated GFR (MDRD) Non-Af Amer 85 mL/min >60 [facility] Work Phone: Comment on above: Non- GFR Calc Ethyl Alcohol Level 237.0 mg/dL [facility] Work Phone: Comment on above: The serum:whole bloo d ethanol ratio is approximately 1.14and varies slightly with hematocrit. Medical Alcohol reference interval and critical value innon-tolerant individuals; 50 - 100 Impairment 100 Intoxication 100 - 250 Severe Poisoning 250 - 400 Deep/possible fatal coma Platelets bldon 09-05-2022 Platelets (Bld) [#/Vol] 318 10*3/uL 150-450 [facility] Work Phone: Serum or plasma calcium alphonso urement (mass/volume)on 09-05-2022 Calcium [Mass/Vol] 8.8 mg/dL 8.5-10.1 [facility] Work Phone: Serum or plasma creatinine m easurement (mass/volume)on 09-05-2022 Creatinine [Mass/Vol] 0.78 mg/dL 0.55-1.02 [facility] Work Phone: Comment on above: The validity of the calculated GFR & GFRAA in patients over 70 years has not been determined. Clinical correlation is essential. Serum or plasma urea nitroge n measurement (mass/volume)on 09-05-2022 Urea nitrogen [Mass/Vol] 13 mg/dL 7-18 [facility] Work Phone: Thin prep Papanicolaou smear with manual screeningon 09-05-2022 Thin prep Papanicolaou smear with manual screening 10 5-15 [facility] Work Phone: XR HIP GENERAL 3V PELV/AP/LA T LEFTon 07-21-2022 [facility] XR Pelvis and Hip - left AP and Lateral frogon 07-21-2022 IMPRESSION: Negative pelvis and left hip. 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 DIVISION [facility] RADIOLOGY [facility] * * *Final Report* * [...] IMPRESSION IMPRESSION: Negative pelvis and left hip. 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 Date/Time: Jul 21 2022 7:27P Dictated by : BETINA MAGANA MD This examination was interpreted and the report reviewed and electronically signed by: BETINA MAGANA MD on Jul 21 2022 7:29PM EST [facility] Radiology Study observation (narrative) Aric gordon [facility] XR Pelvis and Hip - left AP and Lateral frogOrdered By: [facility] Provider on 07-21-2022 [facility] Laboratory - Microbiology an d Antimicrobial susceptibilityon 05-31-2022 SARS-CoV-2 (COVID-19) RNA ALLEY+probe Ql (Unsp spec) Not detected [facility] Work Phone: Absolute lymphocyte counton 02-22-2022 Lymphocytes Auto (Unsp spec) [#/Vol] 2.29 10*3/uL 0.83-4.51 [facility] Work Phone: Basophil percentageon 2021 Basophils/100 WBC (Bld) 0.6 % 0-1 [facility] Work Phone: Chloride [Moles/Vol] 103 mmol/L 98-107 [facility] Work Phone: Eosinophils/100 WBC (Bld) 4.7 % 0-5 [facility] Work Phone: Glucose [Mass/Vol] 207 mg/dL 74-106 [facility] Work Phone: Comment on above: Glucose result great er than or equal to 200 mg/dLsuggests DIABETES MELLITUS per A.D.A. criteria. Neutrophils (Bld) [#/Vol] 3.2 10*3/uL 2.0-7.7 [facility] Work Phone: Neutrophils/100 WBC (Bld) 49.0 % 47-70 [facility] Work Phone: Potassium [Moles/Vol] 3.6 mmol/L 3.5-5.1 [facility] Work Phone: Sodium [Moles/Vol] 135 mmol/L 136-145 [facility] Work Phone: WBC (Bld) [#/Vol] 6.6 10*3/uL 4.4-11.0 [facility] Work Phone: Blood erythrocytes count (nu mber/volume)on 02-22-2022 RBC (Bld) [#/Vol] 4.50 10*6/uL 4.2-5.4 [facility] Work Phone: Blood hemoglobin measurement (mass/volume)on 02-22-2022 Hemoglobin (Bld) [Mass/Vol] 13.8 g/dL 12.0-15.0 [facility] Work Phone: Blood lymphocytes/100 leukoc yteson 02-22-2022 Lymphocytes/100 WBC (Bld) 34.9 % 19-41 [facility] Work Phone: Blood monocytes/100 leukocyt eson 02-22-2022 Monocytes/100 WBC (Bld) 10.2 % 0-10 [facility] Work Phone: Blood platelet mean volumeon 02-22-2022 Platelet mean volume (Bld) [Entitic vol] 10.3 fL 6.2-12.0 [facility] Work Phone: Determination of erythrocyte mean corpuscular volume (MCV)on 02-22-2022 MCV (RBC) [Entitic vol] 88.9 fL 81-99 [facility] Work Phone: Hematocrit Auto (Bld) [Volum e fraction]on 02-22-2022 Hematocrit (Bld) [Volume fraction] 40.0 % 37-47 [facility] Work Phone: Laboratory - Chemistry and C hemistry - challengeon 02-22-2022 CO2 [Moles/Vol] 27.0 mmol/L 21.0-32.0 [facility] Work Phone: Urea nitrogen/Creatinine [Mass ratio] 12.3 mg/mg 10-20 [facility] Work Phone: Laboratory - Hematology and Cell countson 02-22-2022 Erythrocyte distribution width (RBC) [Entitic vol] 39.8 fL 35.1-43.9 [facility] Work Phone: Erythrocyte distribution width (RBC) [Ratio] 12.2 % 11.6-14.6 [facility] Work Phone: Immature granulocytes/100 WBC (Bld) 0.600 % 0.0-0.9 [facility] Work Phone: Comment on above: IG% - Immature Granu locytes (promyelocytes, myelocytes and metamyelocytes) > 1% indicates that a LEFT SHIFT is Present. MCH (RBC) [Entitic mass] 30.7 pg 27.0-32.0 [facility] Work Phone: Nucleated RBC/100 WBC (Bld) [Ratio] 0 % 0-5 [facility] Work Phone: MCHC Auto (RBC) [Mass/Vol]on 02-22-2022 MCHC (RBC) [Mass/Vol] 34.5 g/dL 32-36 [facility] Work Phone: No Panel Informationon 02-22 D-Dimer Quantitative (PE/DVT) < 0.27 FEU/ug/m 0.27-0.49 [facility] Work Phone: Comment on above: NORMAL D-Dimer level (<0.50) indicates no DVT or PE. Estimated Creatinine Clearance Calc 84.92 ml/min [facility] Work Phone: Estimated GFR (MDRD) Amer 111 mL/min >60 [facility] Work Phone: Comment on above: GFR Calc Estimated GFR (MDRD) Non-Af Amer 91 mL/min >60 [facility] Work Phone: Comment on above: Non- GFR Calc Troponin I High Sensitivity < 3 pg/mL 3.0-54.0 [facility] Work Phone: Comment on above: Please Note: New Miri t Units and Gender Specific Reference Ranges. For more information see Policy Stat Procedure [place] High Sensitivity Troponin (TNIH) and attachments. Platelets bldon 02-22-2022 Platelets (Bld) [#/Vol] 311 10*3/uL 150-450 [facility] Work Phone: Serum or plasma calcium alphonso urement (mass/volume)on 02-22-2022 Calcium [Mass/Vol] 9.4 mg/dL 8.5-10.1 [facility] Work Phone: Serum or plasma creatinine m easurement (mass/volume)on 02-22-2022 Creatinine [Mass/Vol] 0.73 mg/dL 0.55-1.02 [facility] Work Phone: Comment on above: The validity of the calculated GFR & GFRAA in patients over 70 years has not been determined. Clinical correlation is essential. Serum or plasma urea nitroge n measurement (mass/volume)on 02-22-2022 Urea nitrogen [Mass/Vol] 9 mg/dL 7-18 [facility] Work Phone: Thin prep Papanicolaou smear with manual screeningon 02-22-2022 Thin prep Papanicolaou smear with manual screening 5 5-15 [facility] Work Phone: ALCOHOLon 06-10-2021 ALCOHOL Canceled Normal [facility] Comment on above: Order Comment: TEST ALCOHOL WAS CANCELLED, 06/10/2021 20:44 Result Comment: FOR MEDICAL USE ONLY. Performed By: #### A #### [place] [address] Provider Note - ED v2on 05-29 Provider [...] made to minimize errors. Minor errors in cone classifier tender may be present. Please call if questions.. [...] documented data. SIGNIFICANT EVENTS: No documented data. POINT OF CARE SPECIALIST: Is : no(1) Is : no(1) RESULTS/VITAL [...] Referenced From Triage - ED 10-Jun-2021 20:27 [facility] Triage - EDon 06-10-2021 Triage - [...] BMI (kg/m2): 27.531 Calculated BSA (m2) 1.81 Jackson Coma Scale: Best Eye Response: (E4) spontaneous [...] Updated: 10-Jun-2021 20:30 by Rocky Hebert (ROSA) [facility] Vital Signs Date Time Vital Sign Value Performing Clinician Facility 05-06-2025 11:28-0400 Body temperature 97.9 [degF] Abisai Haley MD Work Phone: 5(024)196-501544 [place] [address] 05-06-2025 11:28-0400 Diastolic blood pressure 80 mm[Hg] Abisai Haley MD Work Phone: 0(010)897-742783 [place] [address] 05-06-2025 11:28-0400 Heart rate 75 /min Abisai Haley MD Work Phone: 7(627)617-760283 [place] [address] 05-06-2025 11:28-0400 Respiratory rate 16 /min Abisai Haley MD Work Phone: 1(285)913-760083 [place] [address] 05-06-2025 11:28-0400 SaO2% (BldA) [Mass fraction] 92 % Abisai Haley MD Work Phone: 0(910)624-905283 [place] [address] 05-06-2025 11:28-0400 Systolic blood pressure 125 mm[Hg] Abisai Haley MD Work Phone: 9(293)799-607483 [place] [address] 05-06-2025 02:33-0400 Inhaled oxygen concentration 21 % Abisai Haley MD Work Phone: 5(263)150-358483 [place] [address] 05-05-2025 20:11-0400 Inhaled oxygen flow rate 2 L/min Abisai Haley MD Work Phone: 9(313)562-567183 [place] [address] 05-04-2025 11:23-0400 Body height 162.56 cm Abisai Haley MD Work Phone: 9(007)748-936883 [place] [address] 05-04-2025 11:23-0400 Body weight 59.5 kg Abisai Haley MD Work Phone: 1(504)566-375483 [place] [address] 04-26-2025 18:15-0400 Body mass index (BMI) [Ratio] 22.5 kg/m2 Abisai Haley MD Work Phone: 0(481)116-052483 [place] [address] 04-26-2025 17:00-0400 Diastolic blood pressure 86 mm[Hg] Abisai Haley MD Work Phone: 5(587)076-038683 [place] [address] 04-26-2025 17:00-0400 Heart rate 90 /min Abisai Haley MD Work Phone: [facility] 04-26-2025 17:00-0400 Respiratory rate 29 /min Abisai Haley MD Work Phone: [facility] 04-26-2025 17:00-0400 SaO2% (BldA) [Mass fraction] 95 % Abisai Haley MD Work Phone: [facility] 04-26-2025 17:00-0400 Systolic blood pressure 169 mm[Hg] Abisai Haley MD Work Phone: [facility] 04-26-2025 16:19-0400 Body temperature 98.1 [degF] Abisai Haley MD Work Phone: [facility] 04-26-2025 13:42-0400 Body height 162.56 cm Abisai Haley MD Work Phone: 0(747)830-601983 [place] [address] 04-26-2025 13:42-0400 Body mass index (BMI) [Ratio] 22.3 kg/m2 Abisai Haley MD Work Phone: [facility] 04-26-2025 13:42-0400 Body weight 58.96 kg Abisai Haley MD Work Phone: [facility] 04-12-2025 00:24-0400 Body temperature 98 [degF] Abisai Haley MD Work Phone: [facility] 04-12-2025 00:24-0400 Diastolic blood pressure 66 mm[Hg] Abisai Haley MD Work Phone: [facility] 04-12-2025 00:24-0400 Heart rate 78 /min Abisai Haley MD Work Phone: [facility] 04-12-2025 00:24-0400 Respiratory rate 16 /min Abisai Haley MD Work Phone: [facility] 04-12-2025 00:24-0400 SaO2% (BldA) [Mass fraction] 100 % Abisai Haley MD Work Phone: [facility] 04-12-2025 00:24-0400 Systolic blood pressure 125 mm[Hg] Abisai Haley MD Work Phone: [facility] 04-11-2025 23:20-0400 Inhaled oxygen flow rate 2 L/min Abisai Haley MD Work Phone: [facility] 04-11-2025 21:46-0400 Body mass index (BMI) [Ratio] 24.4 kg/m2 Abisai Haley MD Work Phone: [facility] 04-11-2025 21:46-0400 Body weight 64.6 kg Abisai Haley MD Work Phone: [facility] 04-11-2025 21:42-0400 Body height 162.56 cm Abisai Haley MD Work Phone: 4(641)166-123744 [place] [address] 04-04-2025 17:00-0400 Heart rate 97 /min Abisai Haley MD Work Phone: [facility] 04-04-2025 17:00-0400 Respiratory rate 25 /min Abisai Haley MD Work Phone: [facility] 04-04-2025 16:03-0400 Body temperature 98.4 [degF] Abisai Haley MD Work Phone: [facility] 04-04-2025 16:03-0400 Diastolic blood pressure 88 mm[Hg] Abisai Haley MD Work Phone: [facility] 04-04-2025 16:03-0400 SaO2% (BldA) [Mass fraction] 97 % Abisai Haley MD Work Phone: [facility] 04-04-2025 16:03-0400 Systolic blood pressure 157 mm[Hg] Abisai Haley MD Work Phone: [facility] 04-04-2025 11:51-0400 Body mass index (BMI) [Ratio] 25.1 kg/m2 Abisai Haley MD Work Phone: [facility] 04-04-2025 11:51-0400 Body weight 66.4 kg Abisai Haley MD Work Phone: [facility] 04-04-2025 10:24-0400 Body height 162.56 cm Abisai Haley MD Work Phone: [facility] 04-22-2024 13:48-0400 Body mass index (BMI) [Ratio] 29.6 kg/m2 Aretha Praisler-Wood ASP NET PROGRAMMER.MAGNETIC PROSPECTOR Work Phone: [facility] 04-22-2024 13:48-0400 Body temperature 97.39 [degF] Aretha Praisler-Wood ASP NET PROGRAMMER.MAGNETIC PROSPECTOR Work Phone: [facility] 04-22-2024 13:48-0400 Body weight 75.8 kg Aretha Praisler-Wood ASP NET PROGRAMMER.MAGNETIC PROSPECTOR Work Phone: [facility] 04-22-2024 13:48-0400 Diastolic blood pressure 84 mm[Hg] Aretha Praisler-Wood ASP NET PROGRAMMER.MAGNETIC PROSPECTOR Work Phone: [facility] 04-22-2024 13:48-0400 Heart rate 115 /min Aretha Praisler-Wood ASP NET PROGRAMMER.MAGNETIC PROSPECTOR Work Phone: [facility] 04-22-2024 13:48-0400 Respiratory rate 20 /min Aretha Praisler-Wood ASP NET PROGRAMMER.MAGNETIC PROSPECTOR Work Phone: [facility] 04-22-2024 13:48-0400 SaO2% (BldA) [Mass fraction] 98 % Aretha Praisler-Wood ASP NET PROGRAMMER.MAGNETIC PROSPECTOR Work Phone: [facility] 04-22-2024 13:48-0400 Systolic blood pressure 120 mm[Hg] Aretha Praisler-Wood ASP NET PROGRAMMER.MAGNETIC PROSPECTOR Work Phone: [facility] 03-22-2024 07:08-0400 Body temperature 97.7 [degF] DO Milana Garcia Work Phone: [facility] 03-22-2024 07:08-0400 Diastolic blood pressure 84 mm[Hg] DO Milana Jose Work Phone: [facility] 03-22-2024 07:08-0400 Heart rate 102 /min DO Milana Jose Work Phone: [facility] 03-22-2024 07:08-0400 Respiratory rate 17 /min DO Milana Jose Work Phone: [facility] 03-22-2024 07:08-0400 SaO2% (BldA) [Mass fraction] 95 % DO Milana Jose Work Phone: [facility] 03-22-2024 07:08-0400 Systolic blood pressure 134 mm[Hg] DO Milana Jose Work Phone: [facility] 01-24-2024 21:30-0500 Body temperature 96.9 [degF] DO Milana Jose Work Phone: [facility] 01-24-2024 21:30-0500 Diastolic blood pressure 61 mm[Hg] DO Milana Jose Work Phone: [facility] 01-24-2024 21:30-0500 Heart rate 96 /min DO Milana Jose Work Phone: [facility] 01-24-2024 21:30-0500 Respiratory rate 16 /min DO Milana Jose Work Phone: [facility] 01-24-2024 21:30-0500 SaO2% (BldA) [Mass fraction] 98 % DO Milana Jose Work Phone: [facility] 01-24-2024 21:30-0500 Systolic blood pressure 149 mm[Hg] DO Milana Jose Work Phone: [facility] 01-24-2024 21:25-0500 Body mass index (BMI) [Ratio] 28 kg/m2 DO Milana Jose Work Phone: [facility] 01-24-2024 21:25-0500 Body weight 74 kg DO Milana Jose Work Phone: [facility] 01-24-2024 16:39-0500 Body height 162.56 cm DO Milana Jose Work Phone: [facility] 10-19-2023 10:54-0500 Body height 162.56 cm DO Milana Jose Work Phone: [facility] 10-19-2023 10:54-0500 Body mass index (BMI) [Ratio] 26.2 kg/m2 DO Milana Jose Work Phone: [facility] 10-19-2023 10:54-0500 Body temperature 98.4 [degF] DO Milana Jose Work Phone: [facility] 10-19-2023 10:54-0500 Body weight 69.39 kg DO Milana Jose Work Phone: [facility] 10-19-2023 10:54-0500 Diastolic blood pressure 80 mm[Hg] DO Milana Jose Work Phone: [facility] 10-19-2023 10:54-0500 Heart rate 97 /min DO Milana Jose Work Phone: [facility] 10-19-2023 10:54-0500 Respiratory rate 16 /min DO Milanagillian Christensennger Work Phone: [facility] 10-19-2023 10:54-0500 SaO2% (BldA) [Mass fraction] 90 % DO Milana Jose Work Phone: [facility] 10-19-2023 10:54-0500 Systolic blood pressure 147 mm[Hg] DO Milana Jose Work Phone: [facility] 10-10-2023 17:58-0500 Diastolic blood pressure 68 mm[Hg] DO Milana Jose Work Phone: [facility] 10-10-2023 17:58-0500 Heart rate 81 /min DO Milana Jose Work Phone: [facility] 10-10-2023 17:58-0500 Respiratory rate 16 /min DO Milana Jose Work Phone: [facility] 10-10-2023 17:58-0500 SaO2% (BldA) [Mass fraction] 97 % DO Milana Jose Work Phone: [facility] 10-10-2023 17:58-0500 Systolic blood pressure 128 mm[Hg] DO Milana Jose Work Phone: [facility] 10-10-2023 15:25-0500 Body mass index (BMI) [Ratio] 26.3 kg/m2 DO Milana Jose Work Phone: [facility] 10-10-2023 15:25-0500 Body temperature 98.4 [degF] DO Milana Jsoe Work Phone: [facility] 10-10-2023 15:25-0500 Body weight 69.58 kg DO Milana Jose Work Phone: [facility] 09-27-2023 15:27-0400 Body temperature 98.2 [degF] DO Milana Jose Work Phone: [facility] 09-27-2023 15:27-0400 Diastolic blood pressure 78 mm[Hg] DO Mliana Jose Work Phone: [facility] 09-27-2023 15:27-0400 Heart rate 92 /min DO Milana Jose Work Phone: [facility] 09-27-2023 15:27-0400 Respiratory rate 17 /min DO Milana Jose Work Phone: [facility] 09-27-2023 15:27-0400 SaO2% (BldA) [Mass fraction] 92 % DO Milana Jose Work Phone: [facility] 09-27-2023 15:27-0400 Systolic blood pressure 145 mm[Hg] DO Milana Jose Work Phone: [facility] 09-15-2023 12:21-0400 Body temperature 98.6 [degF] DO Milana Jose Work Phone: [facility] 09-15-2023 12:21-0400 Diastolic blood pressure 83 mm[Hg] DO Milana Jose Work Phone: [facility] 09-15-2023 12:21-0400 Heart rate 93 /min DO Milana Jose Work Phone: [facility] 09-15-2023 12:21-0400 Respiratory rate 17 /min DO Milana Jose Work Phone: [facility] 09-15-2023 12:21-0400 SaO2% (BldA) [Mass fraction] 94 % DO Milana Jose Work Phone: [facility] 09-15-2023 12:21-0400 Systolic blood pressure 149 mm[Hg] DO Milana Jose Work Phone: [facility] 08-25-2023 10:00-0400 Body height 162.56 cm DO Milana Jose Work Phone: [facility] 08-25-2023 10:00-0400 Body mass index (BMI) [Ratio] 28.3 kg/m2 DO Milana Jose Work Phone: [facility] 08-25-2023 10:00-0400 Body weight 74.84 kg DO Milana Jose Work Phone: [facility] 08-25-2023 10:00-0400 Diastolic blood pressure 85 mm[Hg] DO Milana Jose Work Phone: [facility] 08-25-2023 10:00-0400 Heart rate 63 /min DO Milana Jose Work Phone: [facility] 08-25-2023 10:00-0400 Respiratory rate 18 /min DO Milana Jose Work Phone: [facility] 08-25-2023 10:00-0400 SaO2% (BldA) [Mass fraction] 96 % DO Milana Jose Work Phone: [facility] 08-25-2023 10:00-0400 Systolic blood pressure 136 mm[Hg] DO Milana Jose Work Phone: [facility] 08-23-2023 15:04-0400 Body temperature 97.6 [degF] DO Milana Jose Work Phone: [facility] 08-23-2023 15:04-0400 Diastolic blood pressure 78 mm[Hg] DO Milana Jose Work Phone: [facility] 08-23-2023 15:04-0400 Heart rate 78 /min DO Milana Jose Work Phone: [facility] 08-23-2023 15:04-0400 Respiratory rate 14 /min DO Milana Jose Work Phone: [facility] 08-23-2023 15:04-0400 SaO2% (BldA) [Mass fraction] 99 % DO Milana Jose Work Phone: [facility] 08-23-2023 15:04-0400 Systolic blood pressure 124 mm[Hg] DO Milana Jose Work Phone: [facility] 08-23-2023 11:44-0400 Body height 162.56 cm DO Milana Jose Work Phone: [facility] 08-23-2023 11:44-0400 Body mass index (BMI) [Ratio] 28.3 kg/m2 DO Milana Jose Work Phone: [facility] 08-23-2023 11:44-0400 Body weight 74.88 kg DO Milana Jose Work Phone: [facility] 07-29-2023 17:56-0400 Diastolic blood pressure 74 mm[Hg] DO Milana Jose Work Phone: [facility] 07-29-2023 17:56-0400 Heart rate 73 /min DO Milana Jose Work Phone: [facility] 07-29-2023 17:56-0400 Respiratory rate 15 /min DO Milana Jose Work Phone: [facility] 07-29-2023 17:56-0400 SaO2% (BldA) [Mass fraction] 98 % DO Milana Jose Work Phone: [facility] 07-29-2023 17:56-0400 Systolic blood pressure 117 mm[Hg] DO Milana Jose Work Phone: [facility] 07-29-2023 14:11-0400 Body height 162.56 cm DO Milana Jose Work Phone: [facility] 07-29-2023 14:11-0400 Body mass index (BMI) [Ratio] 27.8 kg/m2 DO Milana Jose Work Phone: [facility] 07-29-2023 14:11-0400 Body temperature 96.3 [degF] DO Milana Jose Work Phone: [facility] 07-29-2023 14:11-0400 Body weight 73.48 kg DO Milana Jose Work Phone: [facility] 07-01-2023 09:44-0400 Body height 162.56 cm DO Milana Jose Work Phone: [facility] 07-01-2023 09:44-0400 Body mass index (BMI) [Ratio] 27.8 kg/m2 DO Milana Jose Work Phone: [facility] 07-01-2023 09:44-0400 Body temperature 98.5 [degF] DO Milana Jose Work Phone: [facility] 07-01-2023 09:44-0400 Body weight 73.48 kg DO Milana Jose Work Phone: [facility] 07-01-2023 09:44-0400 Diastolic blood pressure 88 mm[Hg] DO Milana Jose Work Phone: [facility] 07-01-2023 09:44-0400 Heart rate 88 /min DO Milana Jose Work Phone: [facility] 07-01-2023 09:44-0400 Respiratory rate 18 /min DO Milana Jose Work Phone: [facility] 07-01-2023 09:44-0400 SaO2% (BldA) [Mass fraction] 95 % DO Milana Jose Work Phone: [facility] 07-01-2023 09:44-0400 Systolic blood pressure 136 mm[Hg] DO Imlana Jose Work Phone: [facility] 05-25-2023 02:54-0400 Diastolic blood pressure 64 mm[Hg] DO Milana Jose Work Phone: [facility] 05-25-2023 02:54-0400 Heart rate 90 /min DO Milana Jose Work Phone: [facility] 05-25-2023 02:54-0400 Respiratory rate 18 /min DO Milana Jose Work Phone: [facility] 05-25-2023 02:54-0400 Systolic blood pressure 132 mm[Hg] DO Milana Jose Work Phone: [facility] 05-25-2023 02:11-0400 SaO2% (BldA) [Mass fraction] 94 % DO Milana Jose Work Phone: [facility] 05-24-2023 21:32-0400 Body height 162.99 cm DO Milana Jose Work Phone: [facility] 05-24-2023 21:32-0400 Body mass index (BMI) [Ratio] 28.9 kg/m2 DO Milana Jose Work Phone: [facility] 05-24-2023 21:32-0400 Body temperature 96.7 [degF] DO Milana Jose Work Phone: [facility] 05-24-2023 21:32-0400 Body weight 76.9 kg DO Milana Jose Work Phone: [facility] 05-20-2023 09:58-0400 Body height 162.56 cm DO Milana Jose Work Phone: [facility] 05-20-2023 09:57-0400 Body mass index (BMI) [Ratio] 27.6 kg/m2 DO Milana Jose Work Phone: [facility] 05-20-2023 09:57-0400 Body weight 73.02 kg DO Milana Jose Work Phone: [facility] 05-20-2023 09:57-0400 Diastolic blood pressure 98 mm[Hg] DO Milana Jose Work Phone: [facility] 05-20-2023 09:57-0400 Heart rate 81 /min DO Milana Jose Work Phone: [facility] 05-20-2023 09:57-0400 Respiratory rate 18 /min DO Milana Jose Work Phone: [facility] 05-20-2023 09:57-0400 SaO2% (BldA) [Mass fraction] 97 % DO Milana Jose Work Phone: [facility] 05-20-2023 09:57-0400 Systolic blood pressure 156 mm[Hg] DO Milana Jose Work Phone: [facility] 05-05-2023 00:54-0400 Diastolic blood pressure 62 mm[Hg] DO Milana Jose Work Phone: [facility] 05-05-2023 00:54-0400 Heart rate 68 /min DO Milana Jose Work Phone: [facility] 05-05-2023 00:54-0400 Respiratory rate 16 /min DO Milana Jose Work Phone: [facility] 05-05-2023 00:54-0400 SaO2% (BldA) [Mass fraction] 96 % DO Milana Jose Work Phone: [facility] 05-05-2023 00:54-0400 Systolic blood pressure 97 mm[Hg] DO Milana Jose Work Phone: [facility] 05-04-2023 21:23-0400 Body mass index (BMI) [Ratio] 27.2 kg/m2 DO Milana Jose Work Phone: [facility] 05-04-2023 21:23-0400 Body weight 72 kg DO Milana Jose Work Phone: [facility] 05-04-2023 19:53-0400 Body height 162.56 cm DO Milana Jose Work Phone: [facility] 05-04-2023 19:53-0400 Body temperature 97.3 [degF] DO Milana Jose Work Phone: [facility] 04-11-2023 09:46-0400 Body temperature 98 [degF] DO Milana Jose Work Phone: [facility] 04-11-2023 09:46-0400 Diastolic blood pressure 63 mm[Hg] DO Milana Jose Work Phone: [facility] 04-11-2023 09:46-0400 Heart rate 85 /min DO Milana Jose Work Phone: [facility] 04-11-2023 09:46-0400 Respiratory rate 14 /min DO Milana Jose Work Phone: [facility] 04-11-2023 09:46-0400 SaO2% (BldA) [Mass fraction] 97 % DO Milana Jose Work Phone: [facility] 04-11-2023 09:46-0400 Systolic blood pressure 118 mm[Hg] DO Milana Jose Work Phone: [facility] 04-10-2023 03:47-0400 Body height 162.56 cm DO Milana Christensennger Work Phone: [facility] 04-10-2023 03:47-0400 Body mass index (BMI) [Ratio] 27.4 kg/m2 DO Milanagillian Christensennger Work Phone: [facility] 04-10-2023 03:47-0400 Body weight 72.5 kg DO Milana Jose Work Phone: [facility] 04-10-2023 02:34-0400 Diastolic blood pressure 61 mm[Hg] DO Milana Christensennger Work Phone: [facility] 04-10-2023 02:34-0400 Heart rate 87 /min DO Milana Christensennger Work Phone: [facility] 04-10-2023 02:34-0400 Respiratory rate 16 /min DO Milana Christensennger Work Phone: [facility] 04-10-2023 02:34-0400 SaO2% (BldA) [Mass fraction] 95 % DO Milana Christensennger Work Phone: [facility] 04-10-2023 02:34-0400 Systolic blood pressure 114 mm[Hg] DO Milana Christensennger Work Phone: [facility] 04-10-2023 02:15-0400 Body temperature 98 [degF] DO Milanagillian Christensennger Work Phone: [facility] 04-09-2023 22:23-0400 Body height 162.56 cm DO Milanagillian Christensennger Work Phone: [facility] 04-09-2023 22:23-0400 Body mass index (BMI) [Ratio] 26.8 kg/m2 DO Milana Jose Work Phone: [facility] 04-09-2023 22:23-0400 Body weight 70.8 kg DO Milana Jose Work Phone: [facility] 03-22-2023 22:52-0400 Diastolic blood pressure 69 mm[Hg] DO Milana Jose Work Phone: [facility] 03-22-2023 22:52-0400 Heart rate 71 /min DO Milana Jose Work Phone: [facility] 03-22-2023 22:52-0400 Respiratory rate 18 /min DO Milana Jose Work Phone: [facility] 03-22-2023 22:52-0400 SaO2% (BldA) [Mass fraction] 98 % DO Milana Jose Work Phone: [facility] 03-22-2023 22:52-0400 Systolic blood pressure 111 mm[Hg] DO Milana Jose Work Phone: [facility] 03-22-2023 17:49-0400 Body height 162.56 cm DO Milana Jose Work Phone: [facility] 03-22-2023 17:49-0400 Body mass index (BMI) [Ratio] 26.5 kg/m2 DO Milana Jose Work Phone: [facility] 03-22-2023 17:49-0400 Body temperature 96.4 [degF] DO Milana Jose Work Phone: [facility] 03-22-2023 17:49-0400 Body weight 70.08 kg DO Milana Jose Work Phone: [facility] 02-12-2023 10:24-0400 Body temperature 98.2 [degF] DO Milana Jose Work Phone: [facility] 02-12-2023 10:24-0400 Diastolic blood pressure 66 mm[Hg] DO Milana Jose Work Phone: [facility] 02-12-2023 10:24-0400 Heart rate 83 /min DO Milana Jose Work Phone: [facility] 02-12-2023 10:24-0400 Respiratory rate 16 /min DO Milana Garcia Work Phone: [facility] 02-12-2023 10:24-0400 SaO2% (BldA) [Mass fraction] 98 % DO Milana Garcia Work Phone: [facility] 02-12-2023 10:24-0400 Systolic blood pressure 104 mm[Hg] DO Milana Christensennger Work Phone: [facility] 01-21-2023 15:06-0500 Diastolic blood pressure 82 mm[Hg] Dr. Calvin Waldrop Work Phone: [facility] 01-21-2023 15:06-0500 Heart rate 90 /min Dr. Calvin Waldrop Work Phone: [facility] 01-21-2023 15:06-0500 Respiratory rate 14 /min Dr. Calvin Waldrop Work Phone: [facility] 01-21-2023 15:06-0500 SaO2% (BldA) [Mass fraction] 98 % Dr. Calvin Waldrop Work Phone: [facility] 01-21-2023 15:06-0500 Systolic blood pressure 165 mm[Hg] Dr. Calvin Waldrop Work Phone: [facility] 01-21-2023 11:49-0500 Body height 162.[address] Calvin Waldrop Work Phone: [facility] 01-21-2023 11:49-0500 Body mass index (BMI) [Ratio] 27.5 kg/m2 Dr. Calvin Waldrop Work Phone: [facility] 01-21-2023 11:49-0500 Body temperature 97.2 [degF] Dr. Calvin Waldrop Work Phone: [facility] 01-21-2023 11:49-0500 Body weight 72.[address] Calvin Waldrop Work Phone: [facility] 11-19-2022 10:59-0500 Diastolic blood pressure 69 mm[Hg] Dr. Calvin Waldrop Work Phone: [facility] 11-19-2022 10:59-0500 Heart rate 83 /min Dr. Calvin Waldrop Work Phone: [facility] 11-19-2022 10:59-0500 Systolic blood pressure 120 mm[Hg] Dr. Calvin Waldrop Work Phone: [facility] 11-19-2022 10:47-0500 Body temperature 98.5 [degF] Dr. Calvin Waldrop Work Phone: [facility] 11-19-2022 10:47-0500 Respiratory rate 16 /min Dr. Calvin Waldrop Work Phone: [facility] 11-19-2022 10:47-0500 SaO2% (BldA) [Mass fraction] 97 % Dr. Calvin Waldrop Work Phone: [facility] 11-18-2022 13:57-0500 Body height 162.[address] Calvin Waldrop Work Phone: [facility] Work Phone: 11-18-2022 13:57-0500 Body mass index (BMI) [Ratio] 28.5 kg/m2 Dr. Calvin Waldrop Work Phone: [facility] 11-18-2022 13:57-0500 Body weight 75.[address] Calvin Waldrop Work Phone: [facility] 10-31-2022 11:49-0500 Body temperature 98.2 [degF] Dr. Calvin Waldrop Work Phone: [facility] 10-31-2022 11:49-0500 Diastolic blood pressure 88 mm[Hg] Dr. Calvin Waldrop Work Phone: [facility] 10-31-2022 11:49-0500 Heart rate 98 /min Dr. Calvin Waldrop Work Phone: [facility] 10-31-2022 11:49-0500 Respiratory rate 14 /min Dr. Calvin Waldrop Work Phone: [facility] 10-31-2022 11:49-0500 SaO2% (BldA) [Mass fraction] 97 % Dr. Calvin Waldrop Work Phone: [facility] 10-31-2022 11:49-0500 Systolic blood pressure 136 mm[Hg] Dr. Calvin Waldrop Work Phone: [facility] 10-07-2022 14:59-0500 Body temperature 97.8 [degF] Dr. Calvin Waldrop Work Phone: [facility] 10-07-2022 14:59-0500 Diastolic blood pressure 80 mm[Hg] Dr. Calvin Waldrop Work Phone: [facility] 10-07-2022 14:59-0500 Heart rate 107 /min Dr. Calvin Waldrop Work Phone: [facility] 10-07-2022 14:59-0500 Respiratory rate 16 /min Dr. Calvin Waldrop Work Phone: [facility] 10-07-2022 14:59-0500 SaO2% (BldA) [Mass fraction] 98 % Dr. Calvin Waldrop Work Phone: [facility] 10-07-2022 14:59-0500 Systolic blood pressure 154 mm[Hg] Dr. Calvin Waldrop Work Phone: [facility] 09-05-2022 23:51-0400 Diastolic blood pressure 68 mm[Hg] Calvin Waldrop [facility] Work Phone: 09-05-2022 23:51-0400 Heart rate 115 /min Calvin Waldrop [facility] Work Phone: 09-05-2022 23:51-0400 Respiratory rate 16 /min Calvin Waldrop [facility] Work Phone: 09-05-2022 23:51-0400 SaO2% (BldA) [Mass fraction] 96 % Calvin [facility] Work Phone: 09-05-2022 23:51-0400 Systolic blood pressure 129 mm[Hg] [facility] Work Phone: 09-05-2022 21:11-0400 Body height 162.56 cm [facility] Work Phone: 09-05-2022 21:11-0400 Body mass index (BMI) [Ratio] 27.5 kg/m2 [facility] Work Phone: 09-05-2022 21:11-0400 Body temperature 98 [degF] [facility] Work Phone: 09-05-2022 21:11-0400 Body weight 72.7 kg [facility] Work Phone: 07-21-2022 18:58-0400 Body temperature 99 [degF] Samantha Deleon [employer]PECT[employer] Work Phone: [facility] 07-21-2022 18:58-0400 Body weight 72.39 kg Samantha Deleon [employer]IC PROSPECTOR Work Phone: [facility] 07-21-2022 18:58-0400 Diastolic blood pressure 84 mm[Hg] Samantha Deleon ASP NET PROGRAMMER.MAGNETIC PROSPECTOR Work Phone: [facility] 07-21-2022 18:58-0400 Heart rate 83 /min Samantha Deleon ASP NET PROGRAMMER.MAGNETIC PROSPECTOR Work Phone: [facility] 07-21-2022 18:58-0400 Respiratory rate 16 /min Samantha Deleon ASP NET PROGRAMMER.MAGNETIC PROSPECTOR Work Phone: [facility] 07-21-2022 18:58-0400 SaO2% (BldA) [Mass fraction] 98 % Samantha Deleon ASP NET PROGRAMMER.MAGNETIC PROSPECTOR Work Phone: [facility] 07-21-2022 18:58-0400 Systolic blood pressure 138 mm[Hg] Samantha Deleon ASP NET PROGRAMMER.MAGNETIC PROSPECTOR Work Phone: [facility] 05-31-2022 12:28-0400 Body mass index (BMI) [Ratio] 26.3 kg/m2 Calvin [facility] Work Phone: 05-31-2022 12:28-0400 Body temperature 97.3 [degF] Calvin [facility] Work Phone: 05-31-2022 12:28-0400 Body weight 69.51 kg Calvin Waldrop [facility] Work Phone: 05-31-2022 12:28-0400 Diastolic blood pressure 76 mm[Hg] Calvin [facility] Work Phone: 05-31-2022 12:28-0400 Heart rate 69 /min Calvin [facility] Work Phone: 05-31-2022 12:28-0400 Respiratory rate 18 /min Calvin [facility] Work Phone: 05-31-2022 12:28-0400 SaO2% (BldA) [Mass fraction] 99 % Calvin [facility] Work Phone: 05-31-2022 12:28-0400 Systolic blood pressure 116 mm[Hg] Calvin [facility] Work Phone: 02-22-2022 15:02-0400 Diastolic blood pressure 84 mm[Hg] [facility] Work Phone: 02-22-2022 15:02-0400 Heart rate 71 /min [facility] Work Phone: 02-22-2022 15:02-0400 Respiratory rate 14 /min [facility] Work Phone: 02-22-2022 15:02-0400 SaO2% (BldA) [Mass fraction] 96 % [facility] Work Phone: 02-22-2022 15:02-0400 Systolic blood pressure 120 mm[Hg] [facility] Work Phone: 03-27-2022 12:30-0400 Body temperature 96.2 [degF] [facility] Work Phone: 02-22-2022 12:12-0400 Body height 162.56 cm [facility] Work Phone: 02-22-2022 12:12-0400 Body mass index (BMI) [Ratio] 26.3 kg/m2 [facility] Work Phone: 02-22-2022 12:12-0400 Body weight 69.5 kg [facility] Work Phone: 06-10-2021 22:58-0400 Diastolic blood pressure 62 mm[Hg] No Pcp Required [facility] 06-10-2021 22:58-0400 Heart rate 88 /min No Pcp Required [facility] 06-10-2021 22:58-0400 Respiratory rate 16 /min No Pcp Required [facility] 06-10-2021 22:58-0400 SaO2% (BldA) [Mass fraction] 99 % No Pcp Required [facility] 06-10-2021 22:58-0400 Systolic blood pressure 105 mm[Hg] No Pcp Required [facility] 06-10-2021 22:27-0400 Body height 162.5 cm No Pcp Required [facility] 06-10-2021 22:27-0400 Body temperature 96.98 [degF] No Pcp Required [facility] 06-10-2021 22:27-0400 Body weight 72.7 kg No Pcp Required [facility] Encounters Encounter Date Encounter Type Care Provider Facility Start: 05-04-2025 Non-patient / Non-visit Dr. Canelo torres MD -[facility] Work Phone: Start: 05-03-2025 Non-patient / Non-visit Dr. Canelo torres MD -[facility] Work Phone: Start: 05-02-2025 Non-patient / Non-visit Dr. Canelo torres MD -[facility] Work Phone: Start: 05-01-2025 Non-patient / Non-visit Dr. Canelo torres MD -[facility] Work Phone: Start: 04-30-2025 Non-patient / Non-visit Dr. Canelo torres MD -[facility] Work Phone: Start: 04-29-2025 Non-patient / Non-visit Dr. Canelo torres MD -[facility] Work Phone: Start: 04-28-2025 Non-patient / Non-visit Dr. Canelo torres MD -[facility] Work Phone: Start: 04-27-2025 Non-patient / Non-visit Dr. Canelo torres MD [facility] Work Phone: Start: 04-26-2025 Non-patient / Non-visit Dr. Julius Moncada MD -[facility] Work Phone: Start: 04-26-2025 [facility] Start: 04-26-2025 End: 05-06-2025 Evaluation and management of inpatient Dr. Julius Moncada MD -[facility] Work Phone: Start: 04-11-2025 End: 04-12-2025 Emergency department patient visit Abisai Haley MD Work Phone: -Emergency Department Work Phone: Start: 04-04-2025 End: 04-04-2025 Emergency department patient visit Abisai Haley MD Work Phone: -Emergency Department Work Phone: Start: 01-03-2025 ambulatory Abisai Haley Facility:[facility] Start: 11-12-2024 End: 11-12-2024 Emergency department patient visit Rober Concepcion Facility:[facility] Start: 10-09-2024 End: 10-09-2024 ambulatory Abisai Haley Facility:[facility] Start: 09-25-2024 End: 09-25-2024 ambulatory Ivon Latrell Facility:[facility] Start: 08-28-2024 End: 08-28-2024 ambulatory Ivon Sams Facility:[facility] Start: 08-22-2024 End: 08-22-2024 ambulatory Abisai Haley Facility:[facility] Start: 08-22-2024 End: 08-22-2024 ambulatory Abisai Haley Facility:[facility] Start: 08-15-2024 End: 08-15-2024 [facility] Start: 07-11-2024 End: 07-11-2024 Emergency department patient visit Chaldean Haley Facility:[facility] Start: 04-22-2024 End: 04-22-2024 ambulatory IHSAN AGUILAR Facility:[facility] Start: 04-22-2024 End: 04-22-2024 Patient encounter procedure Aretha Schofield APRN.[facility] Work Phone: [facility] Comment on above: Sinus congestion (Pr imary Dx); Wheezing; Nausea Start: 03-22-2024 End: 03-22-2024 Patient encounter procedure DO Milana Garcia Work Phone: [facility] Work Phone: Start: 03-21-2024 End: 03-21-2024 ambulatory DO Milana Garcia Work Phone: [facility] Work Phone: Start: 03-21-2024 End: 03-21-2024 Patient encounter procedure DO Milana Garcia Work Phone: [facility] Start: 01-24-2024 End: 01-24-2024 Emergency department patient visit DO Milaan Garcia Work Phone: [facility] Work Phone: Start: 10-19-2023 End: 10-19-2023 Patient encounter procedure DO Milana Garcia Work Phone: [facility] Work Phone: Start: 10-15-2023 End: 10-15-2023 ambulatory DO Milana Garcia Work Phone: [facility] Work Phone: Start: 10-15-2023 End: 10-15-2023 Patient encounter procedure DO Milana Garcia Work Phone: [facility] Work Phone: Start: 10-10-2023 End: 10-10-2023 Emergency department patient visit [facility] Start: 09-27-2023 End: 09-27-2023 Patient encounter procedure DO Milana Garcia Work Phone: [facility] Work Phone: Start: 09-15-2023 End: 09-15-2023 Patient encounter procedure DO Milana Garcia Work Phone: [facility] Work Phone: Start: 08-25-2023 End: 08-25-2023 ambulatory DO Milana Garcia Work Phone: [facility] Work Phone: Start: 08-25-2023 End: 08-25-2023 Patient encounter procedure DO Milana Garcia Work Phone: [facility] Work Phone: Start: 08-25-2023 End: 08-25-2023 Patient encounter procedure DO Milana Garcia Work Phone: [facility] Work Phone: Start: 08-23-2023 End: 08-23-2023 Emergency department patient visit DO Milana Garcia [facility] Start: 07-29-2023 End: 07-29-2023 Emergency department patient visit DO Milana Trenter [facility] Start: 07-19-2023 End: 07-19-2023 ambulatory DO Milana Garcia Work Phone: [facility] Work Phone: Start: 07-19-2023 End: 07-19-2023 Patient encounter procedure DO Milana Garcia Work Phone: [facility] Work Phone: Start: 07-01-2023 End: 07-01-2023 Patient encounter procedure DO Milana Garcia Work Phone: [facility] Work Phone: Start: 05-25-2023 Registered Referred DO Milana Garcia [facility] Start: 05-24-2023 End: 05-25-2023 Emergency department patient visit DO Milana Garcia Work Phone: [facility] Start: 05-20-2023 End: 05-20-2023 Patient encounter procedure DO Milana Garcia Work Phone: [facility] Start: 05-19-2023 End: 05-19-2023 ambulatory DO Milana Garcia Work Phone: [facility] Work Phone: Start: 05-19-2023 End: 05-19-2023 Patient encounter procedure DO Milana Garcia Work Phone: [facility] Start: 05-04-2023 End: 05-05-2023 Emergency department patient visit DO Milana Garcia [facility] Start: 04-11-2023 Non-patient / Non-visit DO Yamel ahleashia Jose Work Phone: [facility] Start: 04-10-2023 End: 04-10-2023 Non-patient / Non-visit DO Milana Garcia Work Phone: [facility] Start: 04-10-2023 End: 04-11-2023 Evaluation and management of inpatient DO Milana Garcia [facility] Start: 04-09-2023 End: 04-09-2023 Patient encounter procedure DO Milana Garcia Work Phone: [facility] Start: 03-22-2023 End: 03-22-2023 Emergency department patient visit DO Milana Garcia Work Phone: [facility] Start: 02-12-2023 End: 02-12-2023 Patient encounter procedure DO Milana Garcia Work Phone: [facility] Start: 01-21-2023 End: 01-21-2023 Emergency department patient visit Dr. Calvin Waldrop Work Phone: [facility] Start: 11-19-2022 Non-patient / Non-visit Dr. Luis Waldrop Work Phone: [facility] Start: 11-19-2022 Non-patient / Non-visit Dr. Luis Waldrop Work Phone: [facility] Start: 11-18-2022 Non-patient / Non-visit Dr. Luis Waldrop Work Phone: [facility] Start: 11-18-2022 Non-patient / Non-visit Dr. Luis Waldrop Work Phone: [facility] Start: 11-18-2022 End: 11-19-2022 Evaluation and management of inpatient Dr. Cavlin Waldrop [facility] Start: 10-31-2022 End: 10-31-[address] Calvin Waldrop Work Phone: [facility] Start: 10-07-2022 End: 10-07-[address] Calvin Waldrop Work Phone: [facility] Start: 09-05-2022 End: 09-06-2022 Emergency [facility] Start: 07-21-2022 End: 07-21-2022 Subsequent hospital visit by physician Xr [facility] Work Phone: Radiology Comment on above: Hip pain, acute, lef t [M25.552] Start: 07-21-2022 End: 07-21-2022 Patient encounter procedure Samantha Deleon APRN.CNP Work Phone: [facility] Comment on above: Hip pain, acute, lef t (Primary Dx) Start: 05-31-2022 End: 05-31-2022 Patient encounter procedure Calvin Waldrop [facility] Start: 02-22-2022 End: 02-22-2022 [facility] Start: 06-10-2021 End: 06-10-2021 Emergency department patient visit Noe Engel [facility] Emergency 07 Procedures Date Procedure Procedure [...] unilateral with pelvis 2-3 views Samantha Deleon ASP NET PROGRAMMER.MAGNETIC PROSPECTOR Work Phone: Start: 02-22-2022 Plain chest X-ray Start: 06-21-2020 Mammography Samantha Ri ggs ASP NET PROGRAMMER.MAGNETIC PROSPECTOR Work Phone: Start: 09-11-2015 Colonoscopy Samantha Ri ggs ASP NET PROGRAMMER.MAGNETIC PROSPECTOR Work Phone: Bacteria identified in Blood by Culture DO Milana Garcia Work Phone: Plan of Treatment Date Care Activity Detail Author Start: 03-03-2034 Urine microalbumin profile DTaP,Tdap,Td Vaccine (3 - Td or Tdap) [facility] Start: 05-06-2025 Patient discharge [facility] Start: 05-05-2025 Inhalation therapy procedure [facility] Start: 05-01-2025 Referral to occupational therapist [facility] Start: 05-01-2025 Referral to service [facility] Start: 04-29-2025 Oxygen therapy [facility] Start: 04-28-2025 Assessment of risk of venous thromboembolism [facility] Start: 04-28-2025 Notification of physician [facility] Start: 04-28-2025 Vital signs measurements [facility] Start: 04-27-2025 [facility] Start: 04-27-2025 Hepatic function panel [facility] Start: 04-27-2025 Prothrombin time [facility] Start: 04-27-2025 Serum inorganic phosphate measurement [facility] Start: 04-27-2025 Thyroid stimulating hormone measurement [facility] Start: 04-26-2025 Following clinical pathway protocol [facility] Start: 04-26-2025 End: 04-26-2025 [facility] Start: 04-26-2025 Care regimes management [facility] Start: 04-26-2025 Notification of physician [facility] Start: 04-26-2025 Admission procedure [facility] Start: 04-26-2025 Ambulation without limitation [facility] Start: 04-26-2025 Assessment of risk of venous thromboembolism [facility] Start: 04-26-2025 Insertion of catheter into peripheral vein [facility] Start: 04-26-2025 Providing care according to standard [facility] Start: 04-26-2025 Verification routine [facility] Start: 04-26-2025 Hospital admission, emergency, from emergency room, medical nature [facility] Start: 04-26-2025 Patient referral to dietitian [facility] Start: 04-12-2025 [facility] Start: 04-11-2025 [facility] Start: 04-05-2025 [facility] Start: 04-04-2025 [facility] Start: 04-04-2025 End: 04-04-2025 [facility] Start: 07-30-2024 Covid-19 Vaccine ( season) Covid-19 Vaccine ( season) [facility] Start: 07-30-2024 Influenza vaccination [facility] Start: 06-07-2024 Hepatitis B Vaccine (3 of 3 - Hep B Twinrix 3-dose series) Hepatitis B Vaccine (3 of 3 - Hep B Twinrix 3-dose series) [facility] Start: 03-22-2024 Patient referral [facility] Work Phone: Start: 01-24-2024 [facility] Start: 01-24-2024 End: 01-24-2024 [facility] Start: 10-26-2023 HPV TESTING HPV TESTING [facility] Start: 10-26-2023 PAP TESTING PAP TESTING [facility] Start: 10-26-2023 Screening for malignant neoplasm of cervix [facility] Start: 10-15-2023 Elastase, pancreatic (el-1), fecal; quantitative [facility] Start: 10-10-2023 [facility] Start: 10-10-2023 [facility] Start: 09-26-2023 Urine microalbumin profile DTAP,TDAP,TD (2 - Td or Tdap) [facility] Start: 07-29-2023 [facility] Start: 05-24-2023 [facility] Start: 05-04-2023 [facility] Start: 04-11-2023 Patient discharge [facility] Start: 04-10-2023 Following clinical pathway protocol [facility] Start: 04-10-2023 Ambulation without limitation [facility] Start: 04-10-2023 Assessment of risk of venous thromboembolism [facility] Start: 04-10-2023 Care regimes management [facility] Start: 04-10-2023 Inhalation therapy procedure [facility] Start: 04-10-2023 Insertion of catheter into peripheral vein [facility] Start: 04-10-2023 Measuring intake and output [facility] Start: 04-10-2023 Notification of physician [facility] Start: 04-10-2023 Providing care according to standard [facility] Start: 04-10-2023 Tobacco use cessation education [facility] Start: 04-10-2023 [facility] Start: 04-10-2023 Electrocardiographic procedure [facility] Start: 04-10-2023 Verification routine [facility] Start: 04-10-2023 Admission procedure [facility] Start: 04-10-2023 End: 04-10-2023 Blood culture [facility] Start: 01-21-2023 [facility] Start: 11-19-2022 Patient referral [facility] Work Phone: Start: 11-19-2022 Patient discharge [facility] Start: 11-19-2022 Notification of physician [facility] Start: 11-19-2022 Patient education [facility] Start: 11-19-2022 Pulse taking [facility] Start: 11-19-2022 Taking patient vital signs [facility] Start: 11-19-2022 Wound care [facility] Start: 11-19-2022 [facility] Start: 11-19-2022 Catheterization of left heart [facility] Work Phone: Start: 11-18-2022 Assessment of risk of venous thromboembolism [facility] Start: 11-18-2022 Care regimes management [facility] Start: 11-18-2022 Insertion of catheter into peripheral vein [facility] Start: 11-18-2022 Measuring intake and output [facility] Start: 11-18-2022 Providing care according to standard [facility] Start: 11-18-2022 Referral to stave log ripsaw operator [facility] Start: 11-18-2022 [facility] Start: 11-18-2022 Following clinical pathway protocol [facility] Start: 11-18-2022 Catheterization of vein [facility] Start: 11-18-2022 Medication not administered [facility] Start: 11-18-2022 Notification of physician [facility] Start: 11-18-2022 Preoperative care [facility] Start: 11-18-2022 [facility] Start: 11-18-2022 Admission procedure [facility] Start: 10-07-2022 Patient referral [facility] Work Phone: Start: 07-30-2022 Influenza vaccination INFLUENZA (#1) [facility] Start: 2022 COLOGUARD (FIT-DNA) COLOGUARD (FIT-DNA) [facility] Start: 2022 Colonoscopy COLONOSCOPY [facility] Start: 2022 COLORECTAL CANCER SCREENING COLORECTAL CANCER SCREENING [facility] Start: [address] COLONOGRAPHY [facility] Start: 2022 FECAL OCCULT BLOOD FECAL OCCULT BLOOD [facility] Start: 2022 Screening for malignant neoplasm of colon [facility] Start: 2022 SIGMOIDOSCOPY SIGMOIDOSCOPY [facility] Start: 07-15-2021 ANNUAL PCP TEAM CHRONIC DISEASE VISIT ANNUAL PCP TEAM CHRONIC DISEASE VISIT [facility] Start: 07-03-2021 Screening for malignant neoplasm of breast Mammogram Screening [facility] Start: 06-21-2021 Hepatitis B screening URINE ALBUMIN:CREATININE RATIO [facility] Start: 06-21-2021 Hepatitis B surface antibody level LDL CHOLESTEROL [facility] Start: 06-21-2021 Mammography MAMMOGRAM [facility] Start: 05-19-2021 COVID-19 VACCINE (3 - Booster for Pfizer series) COVID-19 VACCINE (3 - Booster for Pfizer series) [facility] Start: 11-19-2020 Hemoglobin A1c measurement HbA1C [facility] Start: 11-19-2020 Hemoglobin A1c/Hemoglobin.total in Blood HBA1C [facility] Start: 07-19-2020 3 comp foot exam completed DIABETIC FOOT EXAM [facility] Start: 07-19-2020 Diabetic foot examination Diabetic Foot Exam [facility] Start: 12-26-2019 Glaucoma screening Dilated Retinal Exam [facility] Start: 12-26-2019 Hepatitis C antibody, confirmatory test DILATED RETINAL EXAM [facility] Start: 10-20-2014 PNEUMOCOCCAL (2 - PCV) PNEUMOCOCCAL (2 - PCV) [facility] Start: 1995 Anxiety Screening Anxiety Screening [facility] Start: 1995 BP CONTROLLED (<130/80) BP CONTROLLED (<130/80) [facility] Start: 1995 HEPATITIS C SCREENING HEPATITIS C SCREENING [facility] Start: 1995 Hepatitis C screening Hepatitis C Screening [facility] Start: 1995 HIV SCREENING HIV SCREENING [facility] Start: 1995 HIV screening HIV Screening [facility] Start: 1977 HEPATITIS B (1 of 3 - 3-dose series) HEPATITIS B (1 of 3 - 3-dose series) [facility] Alanine aminotransfe rase [Enzymatic activity/volume] in Serum or Plasma [facility] Albumin [Mass/volume ] in Serum or Plasma [facility] Alkaline phosphatase [Enzymatic activity/volume] in Serum or Plasma [facility] Anion gap in Serum or Plasma [facility] Bacteria identified in Blood by Culture Blood Culture [facility] Bilirubin, total measurement [facility] Bilirubin.direct [Ma ss/volume] in Serum or Plasma [facility] BUN/Creatinine ratio [facility] Calcium [Mass/volume ] in Serum or Plasma [facility] Carbon dioxide, tota l [Moles/volume] in Central venous blood [facility] Cardiac event recording [facility] Creatinine [Mass/vol ume] in Serum or Plasma [facility] Erythrocyte mean cor puscular volume determination [facility] Fat [Mass/mass] in Stool [facility] Fat.neutral [Presenc e] in Stool [facility] Glucose [Mass/volume ] in Serum or Plasma [facility] Hematocrit [Volume F raction] of Blood [facility] Hemoglobin [Mass/vol ume] in Blood [facility] Hemoglobin A1c/Hemoglobin.total in Blood [facility] INR in Blood by Coag ulation assay [facility] Leukocytes [#/volume] in Blood [facility] Magnesium measurement [facility] Mean corpuscular hem oglobin concentration determination [facility] Mean corpuscular hem oglobin determination [facility] Measurement of renal function [facility] Neutrophil count [facility] Neutrophil percent differential count [facility] Patient Education [facility] Work Phone: Patient referral [facility] Work Phone: Platelets [#/volume] in Blood [facility] Potassium measurement [facility] Red blood cell count [facility] Red cell distributio n width determination [facility] Serum chloride measurement [facility] Sodium measurement [facility] Total protein measurement [facility] Troponin T.cardiac [Mass/volume] in Serum or Plasma by High sensitivity method [facility] Urea nitrogen [Mass/ volume] in Serum or Plasma [facility] Immunizations Immunization Date Immunization Notes Care Provider Juany griffith 10-16-2022 influenza virus vacc ine, unspecified formulation Aretha Schofield ASP NET PROGRAMMER.MAGNETIC PROSPECTOR Work Phone: [facility] 09-16-2018 influenza, injectabl e, quadrivalent, contains preservative Samantha Deleon ASP NET PROGRAMMER.MAGNETIC PROSPECTOR Work Phone: [facility] Work Phone: 11-19-2015 influenza, injectabl e, quadrivalent, contains preservative Samantha Deleon ASP NET PROGRAMMER.MAGNETIC PROSPECTOR Work Phone: [facility] 10-02-2014 influenza, seasonal, injectable Samantha Deleon ASP NET PROGRAMMER.MAGNETIC PROSPECTOR Work Phone: [facility] Work Phone: 09-27-2014 influenza, injectabl e, quadrivalent, preservative free DO Milana Garcia Work Phone: [facility] 09-27-2014 influenza, seasonal, injectable [facility] 10-20-2013 pneumococcal polysaccharide vaccine, 23 valent Samantharocky Deleon ASP NET PROGRAMMER.MAGNETIC PROSPECTOR Work Phone: [facility] Work Phone: 09-27-2013 Pneumococcal Vaccine [facility] Work Phone: 09-27-2013 pneumococcal vaccine , unspecified formulation Dr. Calvin Waldrop Work Phone: [facility] 09-26-2013 tetanus toxoid, redu lenin diphtheria toxoid, and acellular pertussis vaccine, adsorbed Samantha Deleon ASP NET PROGRAMMER.MAGNETIC PROSPECTOR Work Phone: [facility] 09-15-2013 influenza virus vacc ine, unspecified formulation Samantha Deleon ASP NET PROGRAMMER.MAGNETIC PROSPECTOR Work Phone: [facility] Work Phone: 09-15-2013 influenza, injectabl e, quadrivalent, preservative free DO Milana Garcia Work Phone: [facility] 09-15-2013 influenza, seasonal, injectable [facility] Payers Date Payer Category Payer Self-pay [id number] 2024 Self-pay 2022 Unknown 2020 Unknown [id number] 2017 Unknown [id number] Private Health Insurance [facility] [id number] Unknown [id number] Unknown [id number] Unknown [id number] 2.16.840.1.540417.3.579.2.4 62 Unknown [id number] 2.16.840.1.197313.3.579.2.4 62 Unknown [id number] 2.16.840.1.198914.3.579.2.4 62 Unknown [id number] 2.16.840.1.574475.3.579.2.4 62 Unknown [id number] 2.16.840.1.864347.3.579.2.4 62 Unknown [id number] 2.16.840.1.075898.3.579.2.4 62 Unknown [id number] 2.16.840.1.106812.3.579.2.4 62 Unknown [id number] 2.16.840.1.351320.3.579.2.4 62 Unknown [id number] 2.16.840.1.995234.3.579.2.4 62 Unknown [id number] 2.16.840.1.258403.3.579.2.4 62 Unknown [id number] 2.16.840.1.001490.3.579.2.4 62 Unknown [id number] 2.16.840.1.375229.3.579.2.4 62 Unknown [id number] 2.16.840.1.402843.3.579.2.4 62 Unknown [id number] 2.16.840.1.559693.3.579.2.4 62 Unknown [id number] 2.16.840.1.038768.3.579.2.4 62 Unknown [id number] 2.16.840.1.562091.3.579.2.4 62 Unknown [id number] 2.16.840.1.049388.3.579.2.4 62 Unknown [id number] 2.16.840.1.608930.3.579.2.4 62 Unknown [id number] 2.16.840.1.649278.3.579.2.4 62 Unknown [id number] 2.16.840.1.122927.3.579.2.4 62 Unknown [id number] 2.16.840.1.314501.3.579.2.4 62 Unknown [id number] 2.16.840.1.093169.3.579.2.4 62 Unknown [id number] 2.16.840.1.435716.3.579.2.4 62 Unknown [id number] 2.16.840.1.563244.3.579.2.4 62 Social History Date Type Detail Facility [facility] Start: 02-22-2022 End: 01-24-2024 Tobacco smoking consumption unknown [facility] Start: 04-14-2021 Sober [facility] Start: 04-14-2021 None [facility] Start: 04-14-2021 Cigarettes [facility] Start: 1975 Sex Assigned At Female C [facility] Start: 07-21-2022 Tobacco smoking stat us MEIS Ex-smoker [facility] Start: 11-29-1996 End: 07-11-2020 History of tobacco use Current smoker [facility] Start: 11-29-1996 End: 07-11-2020 History of tobacco use Cigarette Smoker [facility] Start: 11-04-2020 End: 07-21-2022 Cigarettes smoked current (pack per day) - Reported 0.5 [facility] Start: 07-21-2022 Tobacco use and exposure Smokeless tobacco non-user [facility] Start: 07-21-2022 End: 04-22-2024 Alcohol intake Current drinker of alcohol (finding) [facility] Start: 06-05-2020 End: 08-01-2020 History SDOH Alcohol Frequency 3 [facility] Start: 06-05-2020 End: 08-01-2020 History SDOH Alcohol Std Drinks 1 [facility] Start: 06-05-2020 End: 08-01-2020 History SDOH Alcohol Binge 2 [facility] Start: 09-16-2018 History SDOH 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 [facility] Start: 01-15-2020 History SDOH Social Connections Living 8 [facility] Start: 06-05-2020 History SDOH Physica l Activity DPW 0 [facility] Start: 07-01-2020 History SDOH Financial 5 [facility] Start: 01-14-2020 Education 12 [facility] Start: 07-21-2022 Tobacco Comment stopped 3 weeks ago [facility] Start: 09-26-2014 [facility] Start: 06-05-2020 End: 11-04-2020 Social connection and isolation panel [facility] Frequency of Communication with Friends and Family Not on file [facility] Do you belong to any clubs or organizations such as tenriism groups, unions, fraternal or athletic groups, or school groups? No [facility] How often to you hav e a drink containing alcohol? 2-4 times a month [facility] How many standard drinks containing alcohol do you have on a typical day? 1 or 2 [facility] How often do you hav e 6 or more drinks on 1 occasion? Less than monthly [facility] Do you feel stress - tense, restless, nervous, or anxious, or unable to sleep at night because your mind is troubled all the time - these days [OSQ] To some extent [facility] (I/We) worried wheth er (my/our) food would run out before (I/we) got money to buy more. Never true [facility] Start: 07-15-2020 Gender identity Identifies as female gender (finding) [facility] Start: 07-15-2020 Sexual orientation Heterosexual (fin kristina) [facility] Start: 04-04-2025 Tobacco smoking stat us NHIS Current some day smoker [facility] Start: 04-11-2025 End: 04-27-2025 Tobacco smoking status NHIS Current Light tobacco smoker [facility] NEGATED: Highlighted row [facility] NEGATED: Highlighted row Not [facility] Goals Date Patient Goal Desired Activity /State Functional Status Date Assessment Result Facility 05-06-2025 Functional status Bathroom Privilege [facility] Work Phone: 04-11-2023 Functional status Activity Ability Indepe ndent [facility] Work Phone: 04-11-2023 Functional status Ambulates;Bathroom Priv ilege [facility] Work Phone: 11-19-2022 Functional status Ambulates [facility] Work Phone: 11-18-2022 Functional status Assistive Devices None [facility] Work Phone: Mental Status Date Assessment Result Facility 05-06-2025 Cognitive function Voice/Name [facility] Work Phone: 04-11-2025 Cognitive function Voice/Name [facility] Work Phone: 01-24-2024 Cognitive function Voice/Name [facility] Work Phone: 10-10-2023 Cognitive function Level Of Cons ciousness Awake;Alert;Appropriate [facility] Work Phone: 07-29-2023 Cognitive function Level Of Cons ciousness Awake;Alert;Appropriate;Follow s Commands [facility] Work Phone: 05-24-2023 Cognitive function Voice/Name [facility] Work Phone: 05-04-2023 Cognitive function Level Of Cons ciousness Awake;Alert;Appropriate [facility] Work Phone: 04-11-2023 Cognitive function Voice/Name [facility] Work Phone: 04-09-2023 Cognitive function Level Of Cons ciousness Awake;Alert;Appropriate;Follow s Commands [facility] Work Phone: 03-22-2023 Cognitive function Level Of Cons ciousness Awake;Alert;Appropriate;Follow s Commands [facility] Work Phone: 01-21-2023 Cognitive function Voice/Name [facility] Work Phone: 11-19-2022 Cognitive function Voice/Name [facility] Work Phone: 09-05-2022 Cognitive function Level Of Cons ciousness Awake;Alert;Appropriate [facility] Work Phone: 02-22-2022 Cognitive function Level Of Cons ciousness Awake;Alert;Appropriate;Follow s Commands;Responds to vocal stimuli [facility] Work Phone: Clinical Notes 07-17-2019 to 05-06-2025 Note Date & Type Note Facility 05-06-2025 Discharge summary [facility] 05-06-2025 Note [facility] 05-04-2025 Progress note Note Date/Time May 04, 2025 9:53am [facility] Medical Records Department [address] [place] [address] Progress Note - Hospitalist 05/04/25 0742 MR#: [id number] Acct: [id number] Name: JOSEPH RINCON Rep #:[id number] : 1975 50 From: Canelo Myers MD PCP: Dr. Abisai Haley MD Status:ADM IN Location: [place] [address] Reason for Visit Reason for Visit: Diagnoses [...] 04/27/25 14:17 SB (Rec: 04/27/25 14:17 SB [id number]) Nutrition Malnutrition Evidence of Yes Malnutrition Exists [...] % (Auto) 58.1, Lymph % (Auto) 23.0, Highlands % (Auto) 15.4 H, Eos % (Auto) [...] ? Requested for PT OT eval and psychiatric social worker supervisor to assist with discharge planning ? 05/03/2025; patient remains physical deconditioning. She is agreeable to being discharged with alf facility for rehab this was discussed with patient's son Tan was in the room Time spent in the patient's overall evaluation,decision-making process, review of diagnostic data, adjustment of management, discussion with other providers, nursing nursing and ancillary staff involved in patient's care documentation, 35minutes Charges/Coding Visit Charges Inpatient E&M: 31508 Subs Hosp L2 05/04/25 0953 <Electronically signed by Canelo Myers MD> Cosigner Signature (if applicable): CC: ~ Signed [facility] Work Phone: 1(757) 433-305906-06-2025 Progress note [facility] Medical Records Department [address] [place] [address] Progress Note - Hospitalist 05/04/25 0742 MR#: [id number] Acct: [id number] Name: JOSEPH RINCON Rep #:[id number] : 1975 50 From: Canelo Myers MD PCP: Dr. Abisai Haley MD Status:ADM IN Location: [place] [address] Reason for Visit Reason for Visit: Diagnoses [...] 04/27/25 14:17 SB (Rec: 04/27/25 14:17 SB [id number]) Nutrition Malnutrition Evidence of Yes Malnutrition Exists [...] % (Auto) 58.1, Lymph % (Auto) 23.0, Highlands % (Auto) 15.4 H, Eos % (Auto) [...] ? Requested for PT OT eval and psychiatric social worker supervisor to assist with discharge planning ? 05/03/2025; patient remains physical deconditioning. She is agreeable to being discharged with alf facility for rehab this was discussed with patient's son Tan was in the room Time spent in the patient's overall evaluation,decision-making process, review of diagnostic data, adjustment of management, discussion with other providers, nursing nursing and ancillary staff involved in patient's care documentation, 35minutes Charges/Coding Visit Charges Inpatient E&M: 45951 Subs Hosp L2 05/04/25 0953 Cosigner Signature (if applicable): CC: ~ Signed [facility]06-05-2025 Progress note Author Canelo Myers [facility] Note Date/Time May 03, 2025 11:[address] [facility] Medical Records Department [address] [place] [address] Progress Note - Hospitalist 05/03/25 1136 MR#: [id number] Acct: [id number] Name: JOSEPH RINCON Rep #:[id number] : 1975 50 From: Canelo Myers MD PCP: Dr. Abisai Haley MD Status:ADM IN Location: [place] [address] Reason for Visit Reason for Visit: Diagnoses Acute pancreatitis without necrosis or infection, unspecified (04/26/25) Subjective Subjective Patient has completed phenobarb taper. She however remains physically deconditioned. She is agreeable to being discharged to a alf facility for rehab Objective Data Objective Data [...] 04/27/25 14:17 SB (Rec: 04/27/25 14:17 SB [id number]) Nutrition Malnutrition Evidence of Yes Malnutrition Exists [...] % (Auto) 61.1, Lymph % (Auto) 19.7, Highlands % (Auto) 15.1 H, Eos % (Auto) [...] ? Requested for PT OT eval and psychiatric social worker supervisor to assist with discharge planning ? 05/03/2025; patient remains physical deconditioning. She is agreeable to being discharged with alf facility for rehab this was discussed with patient's son Tan was in the room Charges/Coding Visit Charges Inpatient E&M: 08725 Subs Hosp L2 05/03/25 1137 <Electronically signed by Canelo Myers MD> Cosigner Signature (if applicable): CC: ~ Signed [facility] Work Phone: 1(821) 171-312006-05-2025 Progress note [facility] Medical Records Department [address] [place] [address] Progress Note - Hospitalist 05/03/25 1136 MR#: [id number] Acct: [id number] Name: JOSEPH RINCON Rep #:[id number] : 1975 50 From: Canelo Myers MD PCP: Dr. Abisai Haley MD Status:ADM IN Location: [place] [address] Reason for Visit Reason for Visit: Diagnoses Acute pancreatitis without necrosis or infection, unspecified (04/26/25) Subjective Subjective Patient has completed phenobarb taper. She however remains physically deconditioned. She is agreeable to being discharged to a alf facility for rehab Objective Data Objective Data [...] 04/27/25 14:17 SB (Rec: 04/27/25 14:17 SB [id number]) Nutrition Malnutrition Evidence of Yes Malnutrition Exists [...] % (Auto) 61.1, Lymph % (Auto) 19.7, Highlands % (Auto) 15.1 H, Eos % (Auto) [...] ? Requested for PT OT eval and psychiatric social worker supervisor to assist with discharge planning ? 05/03/2025; patient remains physical deconditioning. She is agreeable to being discharged with alf facility for rehab this was discussed with patient's son Tan was in the room Charges/Coding Visit Charges Inpatient E&M: 54972 Subs Hosp L2 05/03/25 1137 Cosigner Signature (if applicable): CC: ~ Signed [facility]06-04-2025 Progress note Author Canelo Myers [facility] Note Date/Time May 02, 2025 11:[address] [facility] Medical Records Department [address] [place] [address] Progress Note - Hospitalist 05/02/25 0736 MR#: [id number] Acct: [id number] Name: JOSEPH RINCON Rep #:[id number] : 1975 50 From: Canelo Myers MD PCP: Dr. Abisai Haley MD Status:ADM IN Location: [place] [address] Reason for Visit Reason for Visit: Diagnoses [...] 04/27/25 14:17 SB (Rec: 04/27/25 14:17 SB [id number]) Nutrition Malnutrition Evidence of Yes Malnutrition Exists [...] % (Auto) 57.2, Lymph % (Auto) 22.5, Highlands % (Auto) 15.8 H, Eos % (Auto) [...] ? Requested for PT OT eval and psychiatric social worker supervisor to assist with discharge planning Charges/Coding Visit Charges Inpatient E&M: 00818 Subs Hosp L2 05/02/25 1107 <Electronically signed by Canelo Myers MD> Cosigner Signature (if applicable): CC: ~ Signed [facility] Work Phone: 1(680) 173-172806-04-2025 Progress note [facility] Medical Records Department [address] [place] [address] Progress Note - Hospitalist 05/02/25 0736 MR#: [id number] Acct: [id number] Name: JOSEPH RINCON Rep #:[id number] : 1975 50 From: Canelo Myers MD PCP: Dr. Abisai Haley MD Status:ADM IN Location: [place] [address] Reason for Visit Reason for Visit: Diagnoses [...] 04/27/25 14:17 SB (Rec: 04/27/25 14:17 SB [id number]) Nutrition Malnutrition Evidence of Yes Malnutrition Exists [...] % (Auto) 57.2, Lymph % (Auto) 22.5, Highlands % (Auto) 15.8 H, Eos % (Auto) [...] ? Requested for PT OT eval and psychiatric social worker supervisor to assist with discharge planning Charges/Coding Visit Charges Inpatient E&M: 67622 Subs Hosp L2 05/02/25 1107 Cosigner Signature (if applicable): CC: ~ Signed [facility]06-03-2025 Progress note Author Canelo Myers [facility] Note Date/Time May 01, 2025 9:31a m [facility] Medical Records Department [address] [facility] [place] [address] Progress Note - Hospitalist 05/01/25929 MR#: [id number] Acct: [id number] Name: JOSEPH RINCON Rep #:[id number] : 1975 50 From: Canelo Myers MD PCP: Dr. Abisai Haley MD Status:ADM IN Location: [place] [address] Reason for Visit Reason for Visit: Diagnoses [...] 04/27/25 14:17 SB (Rec: 04/27/25 14:17 SB [id number]) Nutrition Malnutrition Evidence of Yes Malnutrition Exists [...] ? Requested for PT OT eval and psychiatric social worker supervisor to assist with discharge planning Charges/Coding Visit Charges Inpatient E&M: 08915 Subs Hosp L2 05/01/2531 <Electronically signed by Canelo Myers MD> Cosigner Signature (if applicable): CC: ~ Signed [facility] Work Phone: 1(949) 591-927106-03-2025 Progress note [facility] Medical Records Department [address] [place] [address] Progress Note - Hospitalist 05/01/25929 MR#: [id number] Acct: [id number] Name: JOSEPH RINCON Rep #:[id number] : 1975 50 From: Canelo Myers MD PCP: Dr. Abisai Haley MD Status:ADM IN Location: [place] [address] Reason for Visit Reason for Visit: Diagnoses [...] 04/30/25 05/01/25 23:59 23:59 23:59 Intake Total 5191.3333 / 8071.3333 6807.5 / 6807.5 1000 / 1000 Output Total 6 / 6 Balance 7591.3333 / 8067.3333 6801.5 / 6801.5 1000 / 1000 Medical Nutrition Assessment Dietitian: Malnutrition Criteria Met Start: 04/27/25 14:17 Freq: Status: Active Protocol: Document 04/27/25 14:17 SB (Rec: 04/27/25 14:17 SB [id number]) Nutrition Malnutrition Evidence of Yes Malnutrition Exists [...] ? Requested for PT OT eval and psychiatric social worker supervisor to assist with discharge planning Charges/Coding Visit Charges Inpatient E&M: 46486 Subs Hosp L2 05/01/25 0956 Cosigner Signature (if applicable): CC: ~ Signed [facility]06-02-2025 Progress note Author Canelo Myers [facility] Note Date/Time April 30, 2025 9:35a m [facility] Medical Records Department [address] [place] [address] Progress Note - Hospitalist 04/30/25 0814 MR#: [id number] Acct: [id number] Name: JOSEPH RINCON Rep #:[id number] : 1975 50 From: Canelo Myers MD PCP: Dr. Abisai Haley MD Status:ADM IN Location: [place] [address] Reason for Visit Reason for Visit: Diagnoses [...] 04/27/25 14:17 SB (Rec: 04/27/25 14:17 SB [id number]) Nutrition Malnutrition Evidence of Yes Malnutrition Exists [...] % (Auto) 59.8, Lymph % (Auto) 23.4, Highlands % (Auto) 13.8 H, Eos % (Auto) [...] weight trends. Charges/Coding Visit Charges Inpatient E&M: 91936 Subs Hosp L2 04/30/25 3695 <Electronically signed by Canelo Myers MD> Troyigner Signature (if applicable): CC: ~ Signed [facility] Work Phone: 1(664) 872-766306-02-2025 Progress note [facility] Medical Records Department [address] [place] [address] Progress Note - Hospitalist 04/30/2514 MR#: [id number] Acct: [id number] Name: JOSEPH RINCON Rep #:[id number] : 1975 50 From: Canelo Myers MD PCP: Dr. Abisai Haley MD Status:ADM IN Location: [place] [address] Reason for Visit Reason for Visit: Diagnoses [...] 04/27/25 14:17 SB (Rec: 04/27/25 14:17 SB [id number]) Nutrition Malnutrition Evidence of Yes Malnutrition Exists [...] % (Auto) 59.8, Lymph % (Auto) 23.4, Highlands % (Auto) 13.8 H, Eos % (Auto) [...] weight trends. Charges/Coding Visit Charges Inpatient E&M: 43703 Subs Hosp L2 04/30/25 0935 Cosigner Signature (if applicable): CC: ~ Signed [facility]06-01-2025 Progress note Author Canelo Myers [facility] Note Date/Time April 29, 2025 8:44a m [facility] Medical Records Department [address] [place] [address] Progress Note - Hospitalist 04/29/25 0733 MR#: [id number] Acct: [id number] Name: JOSEPH RINCON Rep #:[id number] : 1975 50 From: Canelo Myers MD PCP: Dr. Abisai Haley MD Status:ADM IN Location: [place] [address] Reason for Visit Reason for Visit: Diagnoses [...] 04/27/25 14:17 SB (Rec: 04/27/25 14:17 SB [id number]) Nutrition Malnutrition Evidence of Yes Malnutrition Exists [...] 72.9 H, Lymph % (Auto) 14.1 L, Highlands % (Auto) 10.9 H, Eos % (Auto) [...] 50 Minutes Charges/Coding Visit Charges Inpatient E&M: 30803 Subs Hosp L3 04/29/25 0844 <Electronically signed by Canelo Myers MD> Cosigner Signature (if applicable): CC: ~ Signed [facility] Work Phone: 1(501) 366-591006-01-2025 Progress note [facility] Medical Records Department [address] [place] [address] Progress Note - Hospitalist 04/29/25 0733 MR#: [id number] Acct: [id number] Name: JOSEPH RINCON Rep #:[id number] : 1975 50 From: Canelo Myers MD PCP: Dr. Abisai Haley MD Status:ADM IN Location: [place] [address] Reason for Visit Reason for Visit: Diagnoses [...] 04/27/25 14:17 SB (Rec: 04/27/25 14:17 SB [id number]) Nutrition Malnutrition Evidence of Yes Malnutrition Exists [...] 72.9 H, Lymph % (Auto) 14.1 L, Highlands % (Auto) 10.9 H, Eos % (Auto) [...] 50 Minutes Charges/Coding Visit Charges Inpatient E&M: 75339 Subs Hosp L3 04/29/25 0844 Cosigner Signature (if applicable): CC: ~ Signed [facility]05-31-2025 Progress note Author Canelo Myers [facility] Note Date/Time April 28, 2025 9:47a m [facility] Medical Records Department [address] [place] [address] Progress Note - Hospitalist 04/28/25 0942 MR#: [id number] Acct: [id number] Name: JOSEPH RINCON Rep #:[id number] : 1975 50 From: Canelo Myers MD PCP: Dr. Abisai Haley MD Status:ADM IN Location: [place] [address] Reason for Visit Reason for Visit: Diagnoses [...] 04/27/25 14:17 SB (Rec: 04/27/25 14:17 SB [id number]) Nutrition Malnutrition Evidence of Yes Malnutrition Exists [...] 78.0 H, Lymph % (Auto) 12.5 L, Highlands % (Auto) 8.0, Eos % (Auto) 0.8, [...] 52 Minutes Charges/Coding Visit Charges Inpatient E&M: 84861 Subs Hosp L3 04/28/25 0947 <Electronically signed by Canelo Myers MD> Cosigner Signature (if applicable): CC: ~ Signed [facility] Work Phone: 1(846) 148-957705-31-2025 Progress note [facility] Medical Records Department [address] [place] [address] Progress Note - Hospitalist 04/28/25 0942 MR#: [id number] Acct: [id number] Name: JOSEPH RINCON Rep #:[id number] : 1975 50 From: Canelo Myers MD PCP: Dr. Abisai Haley MD Status:ADM IN Location: [place] [address] Reason for Visit Reason for Visit: Diagnoses [...] 04/27/25 14:17 SB (Rec: 04/27/25 14:17 SB [id number]) Nutrition Malnutrition Evidence of Yes Malnutrition Exists [...] 78.0 H, Lymph % (Auto) 12.5 L, Highlands % (Auto) 8.0, Eos % (Auto) 0.8, [...] 52 Minutes Charges/Coding Visit Charges Inpatient E&M: 42208 Subs Hosp L3 04/28/25 0947 Cosigner Signature (if applicable): CC: ~ Signed [facility]05-30-2025 Progress note Author Canelo Myers [facility] Note Date/Time April 27, 2025 1:15p m [facility] Medical Records Department [address] [place] [address] Progress Note - Hospitalist 04/27/25 0939 MR#: [id number] Acct: [id number] Name: JOSEPH RINCON Rep #:[id number] : 1975 50 From: Canelo Myers MD PCP: Dr. Abisai Haley MD Status:ADM IN Location: [place] [address] Reason for Visit Reason for Visit: Diagnoses [...] (Auto) 84.6 H, Lymph % (Auto) 7.3L, Highlands % (Auto) 7.0, Eos % (Auto) 0.0, [...] Clarity Clear, Urine pH 6.0, Ur Specific Isabella 1.010, Urine Protein 30 H, Urine Glucose [...] (Auto) 84.0 H, Lymph % (Auto)7.3 L, Highlands % (Auto) 7.9, Eos % (Auto) 0.1, [...] fatty infiltration of the liver. Reading Location: [id number] Physical Exam Narrative GENERAL: cooperative HEENT: Atraumatic; [...] 50 Minutes Charges/Coding Visit Charges Inpatient E&M: 33528 [facility] Hosp 04/27/25 4560 <Electronically signed by Canelo Myers MD> Cosigner Signature (if applicable): CC: ~ Signed [facility] Work Phone: 1(369) 781-325905-30-2025 Progress note [facility] Medical Records Department [address] [place] [address] Progress Note - Hospitalist 04/27/25 0939 MR#: [id number] Acct: [id number] Name: JOSEPH RINCON Rep #:[id number] : 1975 50 From: Canelo Myers MD PCP: Dr. Abisai Haley MD Status:ADM IN Location: [place] [address] Reason for Visit Reason for Visit: Diagnoses [...] (Auto) 84.6 H, Lymph % (Auto) 7.3L, Highlands % (Auto) 7.0, Eos % (Auto) 0.0, [...] Clarity Clear, Urine pH 6.0, Ur Specific Isabella 1.010, Urine Protein 30 H, Urine Glucose [...] (Auto) 84.0 H, Lymph % (Auto)7.3 L, Highlands % (Auto) 7.9, Eos % (Auto) 0.1, Baso % (Auto) 0.3, Absolute Neuts (auto) 9.6 H, Absolute Lymphs (auto) 0.83, Nucleated RBC % 0, PT 12.9, INR 1.0, Gxahtg995, Potassium 3.8, Chloride 96 L, Carbon Dioxide [...] fatty infiltration of the liver. Reading Location: [facility] Physical Exam Narrative GENERAL: cooperative HEENT: [...] 50 Minutes Charges/Coding Visit Charges Inpatient E&M: 32609 Subs Hosp L3 04/27/25 1315 Cosigner Signature (if applicable): CC: ~ Signed [facility]05-29-2025 History and physical note Author Julius Moncada [facility] Note Date/Time April 26, 2025 8:28p m [facility] Medical Records Department [address] [place] [address] H&P Exam - Hospitalist 04/26/25 1718 MR#: [id number] Acct: [id number] Name: JOSEPH RINCON Rep #:[id number] : 1975 50 From: Julius Moncada MD PCP: Dr. Abisai Haley MD Status:ADM IN Location: [place] [id number] HPI - General General Date of [...] phosphatase 122 total protein 7.7, albumin 4.5 [facility] Medical History Strain of left foot Plantar [...] (Auto) 84.6 H, Lymph % (Auto) 7.3L, Highlands % (Auto) 7.0, Eos % (Auto) 0.0, [...] Clarity Clear, Urine pH 6.0, Ur Specific Isabella 1.010, Urine Protein 30 H, Urine Glucose [...] fatty infiltration of the liver. Reading Location: [id number] Assessment & Plan Assessment/Plan (1) Pancreatitis: PLAN: [...] - No concerns regarding exocrine insufficiency - [place] pain control with Tylenol and opioids - [...] Moncada MD; Dr. Abisai Haley MD~ Signed [facility] Work Phone: 1([phone]) [phone] History and physical note [facility] Medical Records Department [address] [place] [address] H&P Exam - Hospitalist 04/26/25 1718 MR#: [id number] Acct: [id number] Name: JOSEPH RINCON Rep #:[id number] : 1975 50 From: Julius Moncada MD PCP: Dr. Abisai Haley MD Status:ADM IN Location: [place] [address] HPI - General General Date of Admission: [...] phosphatase 122 total protein 7.7, albumin 4.5 [facility] Medical History Strain of left foot Plantar [...] (Auto) 84.6 H, Lymph % (Auto) 7.3L, Highlands % (Auto) 7.0, Eos % (Auto) 0.0, [...] Clarity Clear, Urine pH 6.0, Ur Specific Isabella 1.010, Urine Protein 30 H, Urine Glucose [...] fatty infiltration of the liver. Reading Location: [id number] Assessment & Plan Assessment/Plan (1) Pancreatitis: PLAN: [...] - No concerns regarding exocrine insufficiency - [place] pain control with Tylenol and opioids - [...] Moncada MD; Dr. Abisai Haley MD~ Signed [facility]05-29-2025 Evaluation note* Diagnosis Onset Date Resolution Status Admit Date Hypokalemia acute April 26 5:13pm Intractable abdominal pain acute April 26, 2025 5:13pm Nausea & vomiting acute March 5:13pm Pancreatitis acute April 26 5:13pm [facility] Work Phone: [phone]) 182-912105-29-2025 Discharge summary Author Humphrey Garcia [facility] Note Date/Time April 26, 2025 4:45p m [facility] Medical Records Department [address] [place] [address] Emergency Department Summary 04/26/25 MR#: [id number] Acct: [id number] Name: JOSEPH RINCON Rep #:[id number] : 1975 50 From: Humphrey Garcia DO [...] normal colored stool. [facility] Medical History Strain of left foot Plantar [...] following commands knew that she was at [facility] the year is 2024 Skin: Warm, dry, [...] 84.6 H Lymph % (Auto) 7.3 L Highlands % (Auto) 7.0 Eos % (Auto) 0.0 [...] Clarity Clear Urine pH 6.0 Ur Specific Isabella 1.010 Urine Protein 30 H Urine Glucose [...] fatty infiltration of the liver. Reading Location: [id number] Discharge Plan Triage Chief Complaint: Abd Pain [...] MD [Primary Care Provider] - Print Language: Fijian Disposition Disposition[facility] What to do if you have Problems For any increased pain, shortness of breath, bleeding, nausea or vomiting, chestpain, or any unexpected problems, contact your Primary Care Provider. Call [facility] ([phone]) or report to the closest Emergency Room. Call 911 if necessary. 04/26/25 1645 <Electronically signed by Humphrey Garcia DO> Cosigner Signature (if applicable): CC: Dr. Abisai Haley MD ~ Signed [facility] Work Phone: 1([phone]) 108-248805-29-2025 Discharge summary [facility] Medical Records Department [address] [place] [address] Emergency Department Summary 04/26/25 MR#: [id number] Acct: [id number] Name: JOSEPH RINCON Rep #:[id number] : 1975 50 From: Humphrey Garcia DO [...] normal colored stool. Patient denies any recentcontacts [facility] Medical History Strain of left foot [...] following commands knew that she was at [facility] the year is 2024 Skin: Warm, dry, [...] 84.6 H Lymph % (Auto) 7.3 L Highlands % (Auto) 7.0 Eos % (Auto) 0.0 [...] Clarity Clear Urine pH 6.0 Ur Specific Isabella 1.010 Urine Protein 30 H Urine Glucose [...] fatty infiltration of the liver. Reading Location: [id number] Discharge Plan Triage Chief Complaint: Abd Pain [...] MD [Primary Care Provider] - Print Language: Fijian Disposition Disposition: [facility] What to do if you have Problems For any increased pain, shortness of breath, bleeding, nausea or vomiting, chestpain, or any unexpected problems, contact your Primary Care Provider. Call [facility] ([phone]) or report tothe closest Emergency Room. Call 911 if necessary. 04/26/25 1645 Cosigner Signature (if applicable): CC: Dr. Abisai Haley MD ~ Signed [facility]05-29-2025 Radiology Diagnostic study note [facility] Imaging Services [address] [place], [place] [address] Abdomen/Pelvis W IV Cont ONLY MR#: [id number] Acct: [id number] Name: JOSEPH RINCON Rep #: [id number] : 1975 F 50 From: Jhonny Roger MD PCP: Dr. Abisai Haley MD Status: REG ER Study:Abdomen/Pelvis W IV Cont ONLY Date of E xam: 04/26/25 Exam# [id number] Ordering Dr: Becky Garcia DO PROCEDURE: ABDOMEN/PELVIS [...] fatty infiltration of the liver. Reading Location: [id number] CC: Dr. Abisai Haley MD; Dr. Humphrey Garcia DO ~ Account Auditor: Signed [facility]05-15-2025 Hospital Discharge instructions Additional Instructions Plenty of fluids and rest. Sleep on the main floor tonight. Due to fall risk. No driving for the next 24 hours. Use your Protonix at home for stomach discomfort due to the alcohol. Follow-up with your doctor if not improving or return if worse.[facility] Work Phone: 1(190) 565-963605-14-2025 Radiology Diagnostic study note [facility] Imaging Services [address] [place] [address] Chest PA and Lateral MR#: [id number] Acct: [id number] Name: JOSEPH RINCON Rep #: [id number] : 1975 F 50 From: Jacque Martinez MD PCP: Dr. Abisai Haley MD Status: REG ER Study:Chest PA and Lateral Date of Exam: 04/11/25 Exam# [id number] Ordering Dr: Sheron Colon MD PROCEDURE: CHEST [...] Haley MD; Dr. Francisco Colon MD ~ Account Auditor: Signed [facility]05-07-2025 Discharge summary [facility] Medical Records Department [address] [place] [address] Emergency Department Summary 04/04/25 MR#: [id number] Acct: [id number] Name: JOSEPH RINCON Rep #:[id number] : 1975 50 From: Imani Ruelas PCP: [...] 77.0 H Lymph % (Auto) 14.0 L Highlands % (Auto) 7.8 Eos % (Auto) 0.2 [...] process is seen. Negative examination. Reading Location: [facility] Abdomen/Pelvis CT 04/04/25 12:02 IMPRESSION: 1. Correlate [...] 4. Additional description as above. Reading Location: [facility] Rhythm Strip Rhythm Strip: Sinus Tach [...] Staff - Active Staff] - Print Language: Fijian Disposition Disposition: Home, Self Care What to do if you have Problems For any increased pain, shortness of breath, bleeding, nausea or vomiting, chestpain, or any unexpected problems, contact your Primary Care Provider. Call [facility] ([phone]) or report tothe closest Emergency Room. Call 911 if necessary. 04/04/25 1607 Cosigner Signature (if applicable): CC: Dr. Abisai Haley MD ~ Signed [facility]05-07-2025 Discharge summary Author Imani Knight [facility] Note Date/Time April 04, 2025 4:07pm [facility] Medical Records Department [address] [facility] [place] [address] Emergency Department Summary 04/04/25 MR#: [id number] Acct: [id number] Name: JOSEPH RINCON Rep #:[id number] : 1975 50 From: Imani Ruelas PCP: [...] had intermittent hot flashes and then chills/sweats. [facility] Medical History Strain of left foot [...] 77.0 H Lymph % (Auto) 14.0 L [place]lands % (Auto) 7.8 Eos % (Auto) 0.2 [...] process is seen. Negative examination. [facility]/Pelvis CT 04/04/25 12:02 IMPRESSION: 1. Correlate [...] 4. Additional description as above. Reading Location: [id number] Rhythm Strip Rhythm Strip: Sinus Tach Rate: [...] DAILY Qty: 30 11RF Primary Care Provider: Absiai Haley Referrals: Abisai Haley MD [Primary Care Provider] - Friend,DO Frank [Med Staff - Active Staff] - Print Language: Fijian Disposition Disposition: Home, Self Care What to do if you have Problems For any increased pain, shortness of breath, bleeding, nausea or vomiting, chestpain, or any unexpected problems, contact your Primary Care Provider. Call [facility] ([phone]) or report to the closest Emergency Room. Call 911 if necessary. 04/04/25 1607 <Electronically signed by Imani Knight DO> Cosigner Signature (if applicable): CC: Dr. Abisai Haley MD ~ Signed [facility] Work Phone: [phone]) 488-131005-07-2025 Radiology Diagnostic study note [facility] Imaging Services [address] [place], [place] [address] Abdomen/Pelvis W IV Cont ONLY MR#: [id number] Acct: [id number] Name: JOSEPH RINCON Rep #: [id number] : 1975 F 50 From: Odalis Giraldo MD PCP: Dr. Abisai Haley MD Status: REG ER Study:Abdomen/Pelvis W IV Cont ONLY Date of E xam: 04/04/25 Exam# [id number] Ordering Dr: Selene Knight DO PROCEDURE: ABDOMEN/PELVIS [...] lobe airspace disease is new from prior, [id number] x 24 mm (series 2, image 11). [...] 4. Additional description as above. Reading Location: [facility] CC: Dr. Abisai Haley MD; Dr. Imani Knight DO ~ Account Auditor: Signed [facility]05-07-2025 Radiology Diagnostic study note [facility] Imaging Services [address] [place] [address] Chest 1 View (Portable) MR#: [id number] Acct: [id number] Name: JOSEPH RINCON Rep #: [id number] : 1975 F 50 From: Guido Valles MD PCP: Dr. Abisai Haley MD Status: REG ER Study:Chest 1 View (Portable) Date of Exam: 04/04/25 Exam# [id number] Ordering Dr: Selene Knight DO PROCEDURE: CHEST 1 VIEW (PORTABLE) 04/04/2025 REASON FOR EXAM: CHEST PAIN TECHNIQUE: Frontal view of the chest. COMPARISON: Chest x-ray 11/12/2024 RAD/Chest 1 View (Portable) IMPRESSION: Lungs appear clear throughout. No pleural effusion or pneumothorax is seen. The cardiomediastinal silhouette is stable, without evidence of cardiomegaly. No acute osseous process is seen. Negative examination. Reading Location: [place] [address] CC: Dr. Abisai Haley MD; Dr. Imani Knight DO ~ Account Auditor: Signed [facility]05-25-2024 NoteHNO ID: [id number] Author: ARETHA SCHOFIELD APRN.MAGNETIC PROSPECTOR Service: ? Author Type: Nurse Practitioner Type: [...] drugs Objective Physical Exam (more content not included)...[facility]05-25-2024 Instructions * Patient Instructions* Aretha Schofield APRN.MAGNETIC PROSPECTOR - 04/22/2024 2:02 PM EDT ASSESSMENT/PLAN: 1. [...] Discussed expected course of illness Aretha Schofield APRN.MAGNETIC PROSPECTOR documented [facility] History of Present illness Narrative* [...] Discussed expected course of illness Aretha Schofield APRN.MAGNETIC PROSPECTOR documented in this encounterReg[facility] Center08-31-2023 Discharge summary Author Caprice Jerry [facility] July 29, 2023 5:41pm Note Date/Time July 29, 2023 2: 37pm [facility] Medical Records Department [address] [place] [address] Emergency Department Summary 07/29/23 MR#: [id number] Acct: [id number] Name: JOSEPH RINCON Rep #:[id number] : 1975 48 From: Caprice Jerry MD [...] time that did not show any disease. [facility] Medical History Acute lumbar myofascial strain [...] % (Auto) 63.7 Lymph % (Auto) 25.4 [place]lands % (Auto) 8.5 Eos % (Auto) 1.6 [...] your Primary Care Provider. Call [facility] ([phone]) or report to the closest Emergency Room. Call 911 if necessary. 07/29/23 1741 <Electronically signed by Caprice Jerry MD> Cosigner Signature (if applicable): CC: Milana Garcia, ~ Signed [facility] Work Phone: [phone]) 192-274506-27-[address] Jerry [facility] May 25, 2023 2:53am Note Date/Time May 24, 2023 11:[address] [facility] Medical Records Department [address] [facility] [place] [address] Emergency Department Summary 05/24/23 MR#: [id number] Acct: [id number] Name: JOSEPH RINCON Rep #:[id number] : 1975 48 From: Caprice Jerry MD [...] blood pressure. She just received a 14-day patient monitor in the mail that she will [...] but there has never been seizures documented. [facility] Medical History Acute lumbar myofascial strain [...] 40.3 L Lymph % (Auto) 45.0 H Highlands % (Auto) 11.4 H Eos % (Auto) [...] Color Urine Clarity Urine pH Ur Specific Isabella Urine Protein Urine Glucose (UA) Urine Ketones [...] (Auto) Neut % (Auto) Lymph % (Auto) Highlands % (Auto) Eos % (Auto) Baso % [...] Clarity Clear Urine pH 6.5 Ur Specific Isabella 1.005 Urine Protein Negative Urine Glucose (UA) [...] Patient's had no significant arrhythmias noted on patient monitor throughout her ED stay. Portable chest [...] been worked up. She just got her patient monitor in the mail tonight to put [...] your Primary Care Provider. Call [facility] ([phone]) or report to the closest Emergency Room. Call 911 if necessary. 05/25/23252 <Electronically signed by Caprice Jerry MD> Cosigner Signature (if applicable): CC: Milana Garcia DO ~ Signed [facility] Work Phone: [phone]) [phone] Dyer [facility] May 05, 2023 12:31am Note Date/Time May 04, 2023 10:[address] [facility] Medical Records Department [address] [place] [address] Emergency Department Summary 05/04/23 MR#: [id number] Acct: [id number] Name: JOSEPH RINCON Rep #:[id number] : 1975 48 From: John Dyer DO [...] a cardiac cath 11/19/2022 which was normal. [facility] Medical History Acute lumbar myofascial strain [...] % (Auto) 51.3 Lymph % (Auto) 35.6 [place]lands % (Auto) 9.4 Eos % (Auto) 2.7 [...] 22:33 EDT Reading Location ID and State: [facility] / [place] Tel , Service support , Brain CT [...] your Primary Care Provider. Call [facility] ([phone]) or report to the closest Emergency Room. Call 911 if necessary. 05/05/23 0031 <Electronically signed by John Dyer DO> Cosigner Signature (if applicable): CC: Milana Garcia DO ~ Signed [facility] Work Phone: [phone]) 638-881705-13-[address] Johnson [facility] April 10, 2023 3:15pm Note Date/Time April 10, 2023 3:15p taisha [facility] Medical Records Department [address] [place] [address] Progress Note - Hospitalist 04/10/23 1511 MR#: [id number] Acct: [id number] Name: JOSEPH RINCON Rep #:[id number] : 1975 48 From: Radha Johnson DO PCP: Milana Garcia DO Status:ADM I N Location: [place] [address] Hospitalist Note Is a 48-year-old white female [...] some issues for her at baseline. 04/10/23 5465 <Electronically signed by Radha Johnson DO> Cosigner Signature (if applicable): CC: ~ Signed [facility] Work Phone: [phone]) 216-602805-13-[address] Jacobs [facility] April 10, 2023 7:13am Note Date/Time April 09, 2023 11:06 pm [facility] Medical Records Department [address] [place] [address] Emergency Department Summary 04/09/23 MR#: [id number] Acct: [id number] Name: JOSEPH RINCON Rep #:[id number] : 1975 48 From: David Ruelas PCP: Milana Garcia DO Status:ADM I N Location: [place] [address] HPI History of Present Illness Chief Complaint: [...] 85.1 H Lymph % (Auto) 11.3 L [place]lands % (Auto) 1.6 Eos % (Auto) 0.4 [...] Color Urine Clarity Urine pH Ur Specific Isabella Urine Protein Urine Glucose (UA) Urine Ketones [...] (Auto) Neut % (Auto) Lymph % (Auto) [place] % (Auto) Eos % (Auto) Baso % [...] Clarity Clear Urine pH 6.5 Ur Specific Isabella 1.010 Urine Protein Negative Urine Glucose (UA) [...] (Auto) Neut % (Auto) Lymph % (Auto) [place] % (Auto) Eos % (Auto) Baso % [...] Color Urine Clarity Urine pH Ur Specific Isabella Urine Protein Urine Glucose (UA) Urine Ketones [...] sinus rhythm with a rate of 86. MD interval, QRS interval, and QTc intervals were all normal. [place] was normal. There are no acute ST [...] (42), Including time spent:, Discussing w/Patient &/or Family/Customer Engagement Analyst, Discussing w/Consultants, Arranging Admission or Transfer and Performing Direct Patient Care at Bedside Discharge Plan Dx/Rx/DC Orders Clinical Impression: High anion gap metabolic acidosis, Hypotension, Lactic acidosis Disposition Disposition: [facility] Discharge Date/Time: 04/10/23 03:28 What to do if you have Problems For any increased pain, shortness of breath, bleeding, nausea or vomiting, chestpain, or any unexpected problems, contact your Primary Care Provider. Call [facility] ([phone]) or report to the closest Emergency Room. Call 911 if necessary. 04/10/23712 <Electronically signed by David Jacobs DO> Cosigner Signature (if applicable): CC: Milana Garcia DO ~ Signed [facility] Work Phone: [phone]) 349-803705-13-2023 History and physical note Author Dr. Kiran [facility] April 10, 2023 5:36am Note Date/Time April 10, 2023 1:28a [facility] Medical Records Department [address] [place] [address] H&P Exam - Hospitalist 04/10/23 0128 MR#: [id number] Acct: [id number] Name: JOSEPH RINCON Rep #:[id number] : 1975 48 From: Young Kiran MD PCP: Milana Garcia DO Status:ADM I N Location: [place] [address] HPI - General General Date of Admission: [...] before presentation patient had multiple loose stools. [facility] Medical History Acute lumbar myofascial strain Anxiety [...] 85.1 H, Lymph % (Auto) 11.3 L, Highlands % (Auto) 1.6, Eos % (Auto) 0.4, [...] Lovenox ordered. Charges/Coding Visit Charges Inpatient E&M: 90914 Init Hosp L3 04/10/23 0536 <Electronically signed by Young Kiran MD> Cosigner Signature (if applicable): CC: Dr. Young Kiran MD; Milana Garcia DO~ Signed [facility] Work Phone: [phone]) 589-443904-24-[address] Gaviria [facility] March 22, 2023 10:43pm Note Date/Time March 22, 2023 7:0 6pm [facility] Medical Records Department [address] [place] [address] Emergency Department Summary 03/22/23 MR#: [id number] Acct: [id number] Name: JOSEPH RINCON Rep #:[id number] : 1975 47 From: Lauri Gaviria MD [...] % (Auto) 64.4 Lymph % (Auto) 22.7 Highlands % (Auto) 9.9 Eos % (Auto) 2.0 [...] Color Urine Clarity Urine pH Ur Specific Isabella Urine Protein Urine Glucose (UA) Urine Ketones Urine Occult Blood Urine Nitrite Urine Bilirubin Urine Urobilinogen Ur Leukocyte Esterase Urine RBC Urine WBC Ur Squamous Epith Cells Amorphous Sediment Urine Bacteria Urine Mucus 03/22/23 20:20 WBC RBC Hgb Hct MCV MCH MCHC RDW Std Deviation RDW Coeff of Braxton Plt Count MPV Immature Gran % (Auto) Neut % (Auto) Lymph % (Auto) Highlands % (Auto) Eos % (Auto) Baso % [...] Sl. Cloudy Urine pH 6.5 Ur Specific Isabella 1.005 Urine Protein Negative Urine Glucose (UA) [...] (Rate is 68 and EKG is normal. MD interval is 130 ms. Cures duration 86 ms. QT duration 408 ms. [place] is normal.) Treatment and Re-Evaluation :: Patient [...] your Primary Care Provider. Call [facility] ([phone]) or report to the closest Emergency Room. Call 911 if necessary. 03/22/232242 <Electronically signed by Lauri Gaviria MD> Cosigner Signature (if applicable): CC: Milana Garcia DO ~ Signed [facility] Work Phone: [phone]) [phone] Hospital Discharge instructions Additional Instructions Call your doctor in the morning to have repeat blood work in 3 to 5 days. Let them know that your creatinine is elevated.[facility] Work Phone: 1(100) [phone] Hospital Discharge instructions Additional Instructions Plenty of fluids and rest. No alcohol for the next 48 hours. No driving for the next 24 hours. Follow-up with your primary care physician. They can get an EEG to further evaluate you for possible seizures. Your labs and CAT scan tonight were unremarkable other than your alcohol level that was 237.[facility] Work Phone: 1(164) 169-538308-23-2022 Instructions* Patient Instructions* Samantha Deleon APRN.MAGNETIC PROSPECTOR - 07/21/2022 7:38 PM EDT SCIAT[place]: Your [...] bladder or bowel control. documented in this encounterReg[facility]08-23-2022 History of Present illness Narrative* [...] 21, 2022 7:16 PM documented in this encounterRegional [facility] Center08-23-2022 History of Present illness Narrative* Samantha Deleon, MABEL.MAGNETIC PROSPECTOR - 07/21/2022 7:10 PM EDT This note was created using Flipliferiter. 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 The history is provided by the patient. No speech language assistant was used. Musculoskeletal Problem This is a [...] Flexeril Follow up with PCP Samantha Deleon APRN.MAGNETIC PROSPECTOR documented in this encounterRegional [facility] Center08-19-2019 History of Past illness Narrative* [...] of this encounter (statuses as of 07/21/2022) [facility]. Alex Blum [facility] April 11, 2023 9:49am Note Date/Time April 11, 2023 9:39a [facility] Medical Records Department [address] [facility] [place] [address] Discharge Summary 04/11/23 0936 MR#: [id number] Acct: [id number] Name: JOSEPH RINCON Rep #:[id number] : 1975 48 From: Radha Johnson DO PCP: Milana Garcia DO Status:ADM I N Location: [place] [address] Providers Date of Admission: 04/10/23 Date of [...] % (Auto) 67.1, Lymph % (Auto) 23.8, Highlands % (Auto) 7.8, Eos % (Auto) 0.7, [...] Self Care Charges/Coding Visit Charges Inpatient E&M: 93380 Disch Hosp >30min 04/11/23 0949 <Electronically signed by Radha Johnson DO> Cosigner Signature (if applicable): CC: Dr. Radha Johnson DO; Milana Garcia DO~ Signed [facility] Work Phone: Discharge summary Author [facility] Note Date/Time May 06, 2025 1:22p [facility] Medical Records Department [address] [place] [address] Instructions for Home/Discharge Instructions 05/06/25 1312 MR#: [id number] Acct: [id number] Name: JOSEPH RINCON Rep #:[id number] : 1975 50 From: Mao Becker DO [...] MD; Dr. Canelo Myers MD ~ Signed [facility] Work Phone: Evaluation noteNo assessment information available [facility] Work Phone: Evaluation note* Diagnosis Hip pain, acute, left- Primary documented in this encounter [facility]* Diagnosis Onset Date Resolution Status Bilateral acute otitis media acute [facility] Work Phone: Evaluation note* Diagnosis Onset Date Resolution Status Acute lumbar myofascial strain acute Strain of left hip acute Acute bronchitis acute ACS (acute coronary syndrome) acute Hypertensive urgency acute Hypertriglyceridemia acute Non-ST elevated myocardial infarction acute Hypertension chronic Type 2 diabetes mellitus [facility] Work Phone: evaluation note* Diagnosis Onset Date Resolution Status Acute lumbar myofascial strain acute Strain of left hip acute Acute bronchitis acute ACS (acute coronary syndrome) acute Hypertensive urgency acute Hypertriglyceridemia acute Non-ST elevated myocardial infarction acute HTN (hypertension) chronic Type 2 diabetes mellitus [facility] Work Phone: Evaluation note* Diagnosis Onset Date Resolution Status Acute bronchitis acute [facility] Work Phone: evaluation note* Diagnosis Onset Date Resolution Status Acute bronchitis acute High anion gap metabolic acidosis acute Hypotension acute Lactic acidosis acute Vertigo acute Type 2 diabetes mellitus [facility] Work Phone: evaluation note* Diagnosis Onset Date Resolution Status Acute bronchitis acute High anion gap metabolic acidosis resolved Hypotension resolved Lactic acidosis resolved Vertigo resolved [facility] Work Phone: evaluation note* Diagnosis Onset Date Resolution Status Acute bronchitis acute High anion gap metabolic acidosis resolved Hypotension resolved Lactic acidosis resolved Vertigo resolved Hypertriglyceridemia acute Palpitations acute Syncope and collapse acute HTN (hypertension) chronic Tobacco use disorder [facility] Work Phone: evaluation note* Diagnosis Onset Date Resolution Status High anion gap metabolic acidosis resolved Hypotension resolved Lactic acidosis resolved Vertigo resolved Hypertriglyceridemia acute Palpitations acute Syncope and collapse acute HTN (hypertension) chronic Tobacco use disorder chronic Acute sinusitis acute [facility] Work Phone: Evaluation note* Diagnosis Onset Date Resolution Status Hypertriglyceridemia acute Palpitations acute Syncope and collapse acute HTN (hypertension) chronic Tobacco use disorder chronic Acute sinusitis acute [facility] Work Phone: evaluation note* Diagnosis Onset Date Resolution Status Hypertriglyceridemia acute Palpitations acute Syncope and collapse acute HTN (hypertension) chronic Tobacco use disorder chronic Acute sinusitis acute Hypertriglyceridemia acute Palpitations acute HTN (hypertension) chronic Tobacco use disorder [facility] Work Phone: Evaluation note* Diagnosis Onset Date Resolution Status Acute sinusitis acute Hypertriglyceridemia acute Palpitations acute HTN (hypertension) chronic Tobacco use disorder chronic Contact with or exposure to other viral diseases acute URI (upper respiratory infection) acute [facility] Work Phone: Evaluation note* Diagnosis Onset Date Resolution Status Plantar fasciitis of left foot acute Strain of left foot acute [facility] Work Phone: Evaluation note* Diagnosis Sinus congestion- Primary Other diseases of nasal cavity and sinuses Wheezing Nausea Nausea alone [facility] Insomnia- Primary Insomnia, [...] pain, acute, left documented in this encounter [facility] Discharge instructions Additional Instructions Please follow-up with your PCP and pain management. Return for worsening of symptoms.[facility] Work Phone: Reason for referral (narrative)* Diagnostic Procedure Only (Urgent) - Pending Review Specialty Diagnoses / Procedures Referred By Becky t Referred To Contact XR IMAGING Diagnoses Hip pain, acute, left Procedures XR HIP GENERAL 3V PELV/AP/LAT LEFT RADEX HIP UNILATERAL WITH PELVIS 2-3 VIEWS Samantha Deleon APRN.MAGNETIC PROSPECTOR [address] [place] [address] Xr Imaging Referral ID Status Reason Start Date Expiration Date Visits Requested Visits Authorized [id number] Pending Review Auto-Generat ed Referral 07/21/2022 08/20/2023 1 1 [facility] for referral (narrative)* Diagnostic Procedure Only (Urgent) - Closed Specialty Diagnoses / Procedures Referred By Contac t Referred To Contact XR IMAGING Diagnoses Hip pain, acute, left Procedures XR HIP GENERAL 3V PELV/AP/LAT LEFT RADEX HIP UNILATERAL WITH PELVIS 2-3 VIEWS Samantha Deleon APRN.MAGNETIC PROSPECTOR [address] [place] [address] [place] [id number] Referral ID Status Reason Start Date Expiration Date V isits Requested Visits Authorized [id number] Closed Auto-Generate d Referral 07/21/2022 08/20/2023 1 1 [facility] for referral (narrative)No reason for referral information [facility] Work [facility]: Reason for visit Narrative* Diagnostic Procedure Only (Urgent) - Closed Specialty Diagnoses / Procedures Referred By Contac t Referred To Contact XR IMAGING Diagnoses Hip pain, acute, left Procedures XR HIP GENERAL 3V PELV/AP/LAT LEFT RADEX HIP UNILATERAL WITH PELVIS 2-3 VIEWS Samantha Deleon APRN.MAGNETIC PROSPECTOR [address] [place] [address] [place] [address] Referral ID Status Reason Start Date Expiration Date V isits Requested Visits Authorized [id number] Closed Auto-Generate d Referral 07/21/2022 08/20/2023 1 1 [facility] Summary Purpose Family History No [...] No February 22, 2022 12:30pm Power of [employer] No February 22 12:30pm Advance Directive Response Recorded Date/ Time Advance Directives No February 23 8:55am Living Will No September 05 9:14pm Power of [employer] No September 05 9:14pm Advance Directive Response Recorded Date/ Time Advance Directives No February 23 7:55am Living Will No November 18 1:54pm Power of [employer] No November 18, 2022 1:54pm Advance Directive Response Recorded Date/ Time Advance Directives No February 23 7:55am Living Will No January 21 12:06pm Power of [employer] No January 21, 2023 12:06pm Advance Directive Response Recorded Date/ Time Advance Directives No February 23 8:55am Living Will No March 22, 2023 6:38pm Power of [employer] No March 22 6:38pm Advance Directive Response Recorded Date/ Time Advance Directives No February 23 8:55am Living Will No April 09, 2023 1 0:50pm Power of [employer] No April 09, 2023 10:50pm Advance Directive Response Recorded Date/ Time Advance Directives No February 23 8:55am Living Will No April 10, 2023 3 :53am Power of [employer] No April 10, 2023 3:53am Advance Directive Response Recorded Date/ Time Advance Directives No February 23 8:55am Living Will No May 04, 2023 9 :16pm Power of [employer] No May 04, 2023 9:16pm Advance Directive Response Recorded Date/ Time Advance Directives No February 23 8:55am Living Will No May 24, 2023 9:36pm Power of [employer] No May 24 9:36pm Advance Directive Response Recorded Date/ Time Advance Directives No February 23 8:55am Living Will No July 29 2:27pm Power of [employer] No July 29 023 2:27pm Advance Directive Response Recorded Date/ Time Advance Directives No February 23 8:55am Living Will No August 23, 2023 12:07pm Power of [employer] No July 12:07pm Advance Directive Response Recorded Date/ Time Advance Directives No February 23 021 7:55am Living Will No October 10 4:19pm Power of [employer] No October 10, 2023 4:19pm Advance Directive Response Recorded Date/ Time Advance Directives No February 23 8:55am Living Will No January 24 5:38pm Power of [employer] No January 24, 2024 5:38pm Advance Directive Response Recorded Date/ Time Do you have a Healthcare Power of [employer]? No April 04, 2025 11:50am Advance Directives No July 2:01pm Advance Directive Response Recorded Date/ Time Do you have a Healthcare Power of [employer]? No April 11, 2025 10:12pm Do you have a Healthcare Power of [employer]? No April 04, 2025 11:50am Advance Directives No July 2:01pm Advance Directive Response Recorded Date/ Time Do you have a Healthcare Power of [employer]? No April 11, 2025 10:12pm Do you have a Healthcare Power of [employer]? No April 04, 2025 11:50am Do you have a Healthcare Power of [employer]? No April 26, 2025 1:50pm Advance Directives No July 2:01pm Advance Directive Response Recorded Date/ Time Do you have a Healthcare Power of [employer]? No April 11, 2025 10:12pm Do you have a Healthcare Power of [employer]? No April 04, 2025 11:50am Do you have a Healthcare Power of [employer]? No April 26, 2025 6:15pm Advance Directives [...] section and content) DATE CREATED AUTHOR 06/16/2021 [facility] DATE CREATED AUTHOR AUTHOR'S ORGANIZ ATION 04/24/2024 [facility] DATE CREATED AUTHOR AUTHOR'S ORGANIZ ATION 05/18/2025 [facility] Goals (unrecognized section and content) Goals may [...] this informatio n is protected by the [facility] Confidentiality of Alcohol and Drug Abuse Patient Records regulations: The Federal rules restrict any use of the information to criminally investigate or prosecute any alcohol or drug abuse patient.[facility] the event this information is protected by the Federal Confidentiality of Alcohol and Drug Abuse Patient Records regulations: The Federal rules restrict any use of the information to criminally investigate or prosecute any alcohol or drug abuse patient.[facility] Center[facility] the event this information is protected by the Federal Confidentiality of Alcohol and Drug Abuse Patient Records regulations: The Federal rules restrict any use of the information to criminally investigate or prosecute any alcohol or drug abuse patient.[facility] Reason for Visit (unrecogniz ed section and content) Reason Comments left hip pain X 3 days-cannot reca ll an injury Reason Comments Sinus Problem Nasal congestion, dr garland slight sore throat, nausea, cough, wheezing x 1 day Care Teams (unrecognized sec tion and content) Hairspring Inspector Relationship Specialty Start Date End Date Ihsan [...] Care Provider, Referring Provider Active Jim Manriquez PRODUCTION SUPERVISOR TRAINEE, PRODUCTION SUPERVISOR TRAINEE-C Attending Provider Active Team Status: Inactive Member [...] DO Primary Care Provider Active Jim Manriquez PRODUCTION SUPERVISOR TRAINEE, PRODUCTION SUPERVISOR TRAINEE-C Attending Provider, Referring P roevert Active Team [...] Attending Provider, Referring Provider Active Jim Manriquez PRODUCTION SUPERVISOR TRAINEE, PRODUCTION SUPERVISOR TRAINEE-C Other Provider Active Team Status: Inactive Member [...] Dr. Jose Taylor MD Attending Provider Active Hairspring Inspector Relationship Specialty Start Date End Date LaurenIhsanDO PCP - General Family Medicine 10/22/20 Hairspring Inspector Relationship Specialty Start Date End Date Lauren [...] BE BASED ON THE PRIMARY CLINICAL RECORDS. [facility] [employer] provides no warranty or guarantee of the accuracy or completeness of information in this document.
[2025-05-25] MEDS: Dicyclomine 10 MG Capsule 20 MG PO (03:25)
[2025-05-25] MEDS: Ondansetron 8 MG Tablet PO (03:25)
[2025-05-25] MEDS: Magnesium Sulfate 4gm/100mL 4 GM/100 ML IV.SOLN. IV (03:26)
[2025-05-25] MEDS: Lactated Ringers 1,000 ML 125 ML IV (03:26)
[2025-05-25] MEDS: hydrOXYzine PAM 25 MG Capsule 50 MG PO ×2 (03:26→20:41)
[2025-05-25] MEDS: Phenobarbital 32.4 MG Tablet 64.8 MG PO ×6 (03:26→23:14)
[2025-05-25] MEDS: Gabapentin 300 MG Capsule PO (06:34)
[2025-05-25] MEDS: Insulin Lispro 100 UNIT/ML INSULN.PEN SC ×4 (06:35→20:50)
[2025-05-25 07:15] LABS: Magnesium 1.6 mg/dL (1.5-2.2)
[2025-05-25 07:16] LABS: Bedside Glucose 179 mg/dL (74-106)
[2025-05-25] MEDS: Budesonide Respules 0.5 MG/2 ML AMPUL.NEB. INHALATION ×2 (07:46→18:25)
[2025-05-25] MEDS: Montelukast 10 MG Tablet PO (08:03)
[2025-05-25] MEDS: Folic Acid 1 MG Tablet PO (08:03)
[2025-05-25] MEDS: Pantoprazole Sodium 40 MG Tablet PO ×2 (08:03→20:42)
[2025-05-25] MEDS: amLODIPine 5 MG Tablet PO (08:03)
[2025-05-25] MEDS: buPROPion (XL) 150 MG TABLET.XL PO (08:03)
[2025-05-25] MEDS: Aspirin 81 MG TAB.CHEW PO (08:03)
[2025-05-25] MEDS: Loratadine 10 MG Tablet PO (08:03)
[2025-05-25] MEDS: Metoprolol(XL)Succ 25 MG Tablet PO (08:03)
[2025-05-25] MEDS: Lisinopril 40 MG Tablet PO (08:03)
[2025-05-25] MEDS: Citalopram 40 MG TABLET PO (08:03)
[2025-05-25] MEDS: Thiamine Hydrochloride 100 MG Tablet PO (08:04)
[2025-05-25 12:02] LABS: Bedside Glucose 220 mg/dL (74-106)
--- NOTE | 2025-05-25 13:02 | ADDICTION ---
Met with pt to complete RAMP assessments. Pt reports she recognizes her level of use and how it is effecting her not only physically, but mentally as well. She has agreed to follow up with [facility] for outpatient [facility] treatment.
--- NOTE | 2025-05-25 15:21 | CASEMGMT ---
Social Work SW met w/pt in room in regard to self pay status. Pt is open to receiving resources again, even though they have been provided to her on prior hospital stays. SW also spoke w/pt about how things are going overall. Pt states that her is home from [facility], and they are also renovating their home, so things are hectic. She is glad he is home. However, when he was in the hospital and [facility]pc, she was not drinking as much as she knew she may need to get to the SNF or hospital at any moment. Now that he is home she is drinking more. SW offered support to pt around her home situation, and that she came in to participate in the detox program. Pt is open to counseling resources as well. For the most part she reports feeling okay but does have moments of anxiety. She is taking medication for the anxiety. SW provided to pt resources for self pay including [employer], [facility], [facility] assist and prescription assistance programs. SW also gave pt a list of counseling providers in the area. SW remains available for any additional support or resources. ZANA Walker
[2025-05-25 16:46] LABS: Bedside Glucose 187 mg/dL (74-106)
--- NOTE | 2025-05-25 17:02 | PN.HOSP_ITS ---
Hospitalist Note Patient was seen and examined today, she was admitted for alcohol detox-patient had just been discharged on 05/06/2025 after completing alcohol detox and treatment for pancreatitis. There is a note from addiction social welfare clerk that states the patient will follow-up with [facility] for outpatient [facility] treatment.
[2025-05-25] MEDS: Atorvastatin Calcium 40 MG Tablet PO (20:42)
[2025-05-25 21:55] LABS: Bedside Glucose 182 mg/dL (74-106)
[2025-05-26] VITALS (8 sets, daily range): BP systolic 117–141; BP diastolic 68–76; PULSE 77–94; RESP 16–20; TEMP 36.3–36.9; O2SAT 92–98
[2025-05-26] MEDS: Phenobarbital 32.4 MG Tablet 64.8 MG PO ×6 (03:22→22:58)
[2025-05-26] MEDS: Budesonide Respules 0.5 MG/2 ML AMPUL.NEB. INHALATION ×2 (06:45→20:20)
[2025-05-26] MEDS: Albuterol 2.5 MG/3 ML VIAL.NEB. INHALATION ×2 (06:45→20:20)
--- NOTE | 2025-05-26 06:45 | CPS ---
Pt is noncompliant with CPAP and doesn't want to wear one of ours.
[2025-05-26 06:48] LABS: Bedside Glucose 119 mg/dL (74-106)
[2025-05-26] MEDS: Metoprolol(XL)Succ 25 MG Tablet PO (07:56)
[2025-05-26] MEDS: Lisinopril 40 MG Tablet PO (07:56)
[2025-05-26] MEDS: amLODIPine 5 MG Tablet PO (07:56)
[2025-05-26] MEDS: Montelukast 10 MG Tablet PO (07:56)
[2025-05-26] MEDS: Loratadine 10 MG Tablet PO (07:56)
[2025-05-26] MEDS: Thiamine Hydrochloride 100 MG Tablet PO (07:56)
[2025-05-26] MEDS: Aspirin 81 MG TAB.CHEW PO (07:57)
[2025-05-26] MEDS: buPROPion (XL) 150 MG TABLET.XL PO (07:57)
[2025-05-26] MEDS: Citalopram 40 MG TABLET PO (07:57)
[2025-05-26] MEDS: Multivitamins,Ther W-Minerals Tablet 1 TABLET PO (07:57)
[2025-05-26] MEDS: Folic Acid 1 MG Tablet PO (07:57)
[2025-05-26] MEDS: Pantoprazole Sodium 40 MG Tablet PO ×2 (07:57→20:19)
[2025-05-26] MEDS: Gabapentin 300 MG Capsule PO (08:00)
[2025-05-26 10:14] LABS: Magnesium 1.3 mg/dL (1.5-2.2)
[2025-05-26] MEDS: Insulin Lispro 100 UNIT/ML INSULN.PEN SC ×3 (10:55→20:18)
[2025-05-26 11:35] LABS: Bedside Glucose 293 mg/dL (74-106)
--- NOTE | 2025-05-26 13:35 | PN.HOSP_ITS ---
Subjective Subjective Patient was seen and examined today, her magnesium is low and she appears to be sleepy. She has no specific complaints today. Objective Data Objective Data Vital Signs: Vital Signs Temp Pulse Resp BP Pulse Ox O2 Del Method O2 Flow Rate 97.4 F L 80 16 117/72 94 Room Air 1 05/26/25 11:25 05/26/25 11:05/26/25 11:05/26/25 11:05/26/25 11:05/26/25 11:05/25/25 18:25 Oxygen Flow Rate (L/min) 1 Oxygen Delivery Method Room Air Weight: 56.7 kg Body Mass Index (BMI) 21.4 Intake & Output: Intake and Output for Last 24 Hours 05/24/25 05/25/25 05/26/25 23:59 23:59 23:59 Intake Total 2099 Balance 2099 Lab / Micro Data 05/24/25 23:45 05/24/25 23:45 Labs: Laboratory Results - last 24 hr 05/25/25 16:15: POC Glucose 187 H 05/25/25 20:48: POC Glucose 182 H 05/26/25 06:14: POC Glucose 119 H 05/26/25 09:30: Magnesium 1.3 L 05/26/25 10:54: POC Glucose 293 H Physical Exam Const alert, oriented x3 and no apparent distress General Appearance: cooperative, well kempt and well developed Orientation / Consciousness: awake, oriented to person, oriented to place and oriented to time HEENT normocephalic, head/scalp atraumatic and moist oral mucous membranes Eyes PERRL, EOMs intact bilaterally and conjunctivae normal Neck supple, no JVD, thyroid normal and no carotid bruits General: trachea midline Resp normal respiratory effort, no retractions, no use of accessory muscles and clear to auscultation bilaterally Auscultation: Negative for rales, rhonchi or wheezes Cardio regular rate, regular rhythm, S1 normal heart sound, S2 normal heart sound, no murmurs, no rub and no gallops GI normal to inspection, nondistended, normoactive bowel sounds, soft to palpation, non-tender and non-distended Extremity no clubbing, cyanosis or edema Skin no rashes or lesions noted General Skin Exam: no breakdown Neuro oriented x3, CN's II-XII intact bilaterally, moves all extremities, no focal motor deficits and no sensory deficits noted Sensorium / Orientation: awake and alert Speech: speech normal Psych affect normal Assessment & Plan Assessment/Plan (1) Admitted to alcohol detoxification center: PLAN: Plan 1. Acute alcohol withdrawal-patient will remain on her present medications, addiction criminal justice social worker will talk with the patient #2 hypomagnesemia-magnesium supplementation will be given to the patient #3 essential hypertension-patient will remain on her present medication #4 hyperlipidemia-patient is on a statin #5 type 2 diabetes-patient's blood sugars will be monitored, sliding scale insulin will be given as necessary Total clinical time spent by myself addressing the patient's medical issues, reviewing all of her data, and collaborating with patient's care team: 35-minute Charges/Coding Visit Charges Inpatient E&M: 54139 Subs Hosp L2
[2025-05-26] MEDS: LORazepam 1 MG Tablet 2 MG PO (13:49)
[2025-05-26] MEDS: Magnesium Sulfate 4gm/100mL 4 GM/100 ML IV.SOLN. IV (14:25)
[2025-05-26 15:53] LABS: Bedside Glucose 221 mg/dL (74-106)
[2025-05-26] MEDS: hydrOXYzine PAM 25 MG Capsule 50 MG PO (20:18)
[2025-05-26] MEDS: Atorvastatin Calcium 40 MG Tablet PO (20:18)
[2025-05-26] MEDS: Magnesium Chloride 64 MG Delay Rel.Tablet 128 MG PO (20:18)
[2025-05-26 21:19] LABS: Bedside Glucose 243 mg/dL (74-106)
[2025-05-26] MEDS: traZODone 100 MG Tablet PO (22:58)
[2025-05-27] VITALS (8 sets, daily range): BP systolic 93–137; BP diastolic 58–76; PULSE 70–79; RESP 16–20; TEMP 36.2–36.6; O2SAT 96–100
[2025-05-27] MEDS: Phenobarbital 32.4 MG Tablet 64.8 MG PO ×2 (03:36→11:05)
[2025-05-27 06:11] LABS: Magnesium 1.7 mg/dL (1.5-2.2)
[2025-05-27 06:47] LABS: Bedside Glucose 133 mg/dL (74-106)
[2025-05-27] MEDS: Albuterol 2.5 MG/3 ML VIAL.NEB. INHALATION (07:12)
[2025-05-27] MEDS: Budesonide Respules 0.5 MG/2 ML AMPUL.NEB. INHALATION ×2 (07:12→20:22)
[2025-05-27] MEDS: Multivitamins,Ther W-Minerals Tablet 1 TABLET PO (08:35)
[2025-05-27] MEDS: Citalopram 40 MG TABLET PO (08:35)
[2025-05-27] MEDS: Lisinopril 40 MG Tablet PO (08:35)
[2025-05-27] MEDS: Montelukast 10 MG Tablet PO (08:36)
[2025-05-27] MEDS: amLODIPine 5 MG Tablet PO (08:36)
[2025-05-27] MEDS: Pantoprazole Sodium 40 MG Tablet PO ×2 (08:36→21:29)
[2025-05-27] MEDS: Aspirin 81 MG TAB.CHEW PO (08:36)
[2025-05-27] MEDS: Metoprolol(XL)Succ 25 MG Tablet PO (08:36)
[2025-05-27] MEDS: Thiamine Hydrochloride 100 MG Tablet PO (08:36)
[2025-05-27] MEDS: Loratadine 10 MG Tablet PO (08:37)
[2025-05-27] MEDS: Folic Acid 1 MG Tablet PO (08:37)
[2025-05-27] MEDS: Magnesium Chloride 64 MG Delay Rel.Tablet 128 MG PO ×2 (08:37→21:29)
[2025-05-27] MEDS: buPROPion (XL) 150 MG TABLET.XL PO (08:39)
[2025-05-27] MEDS: Insulin Lispro 100 UNIT/ML INSULN.PEN SC ×3 (11:03→21:32)
[2025-05-27 11:30] LABS: Bedside Glucose 246 mg/dL (74-106)
[2025-05-27] MEDS: hydrOXYzine PAM 25 MG Capsule 50 MG PO (14:54)
--- NOTE | 2025-05-27 15:31 | PCM.PN.HOSP ---
Subjective Subjective Patient was seen and examined today, she asked me when I felt she could go home, I told her I would reduce her phenobarbital and reevaluate her tomorrow morning. Objective Data Objective Data Vital Signs: Vital Signs Temp Pulse Resp BP Pulse Ox O2 Del Method O2 Flow Rate 98 F 76 16 130/71 H 98 Room Air 2 05/27/25 15:03 05/27/25 15:03 05/27/25 15:03 05/27/25 15:03 05/27/25 15:03 05/27/25 15:03 05/27/25 08:08 Oxygen Flow Rate (L/min) 2 Oxygen Delivery Method Room Air Weight: 56.7 kg Body Mass Index (BMI) 21.4 Intake & Output: Intake and Output for Last 24 Hours 05/25/25 05/26/25 05/27/25 23:59 23:59 23:59 Intake Total 2099 100 / 100 Balance 2099 100 / 100 Lab / Micro Data 05/24/25 23:45 05/24/25 23:45 Labs: Laboratory Results - last 24 hr 05/26/25 15:33: POC Glucose 221 H 05/26/25 20:16: POC Glucose 243 H 05/27/25 04:48: Magnesium 1.7 05/27/25 06:28: POC Glucose 133 H 05/27/25 11:02: POC Glucose 246 H Physical Exam Narrative alert, oriented x3 and no apparent distress General Appearance: cooperative, well kempt and well developed Orientation / Consciousness: awake, oriented to person, oriented to place and oriented to time HEENT normocephalic, head/scalp atraumatic and moist oral mucous membranes Eyes PERRL, EOMs intact bilaterally and conjunctivae normal Neck supple, no JVD, thyroid normal and no carotid bruits General: trachea midline Resp normal respiratory effort, no retractions, no use of accessory muscles and clear to auscultation bilaterally Auscultation: Negative for rales, rhonchi or wheezes Cardio regular rate, regular rhythm, S1 normal heart sound, S2 normal heart sound, no murmurs, no rub and no gallops GI normal to inspection, nondistended, normoactive bowel sounds, soft to palpation, non-tender and non-distended Extremity no clubbing, cyanosis or edema Skin no rashes or lesions noted General Skin Exam: no breakdown Neuro oriented x3, CN's II-XII intact bilaterally, moves all extremities, no focal motor deficits and no sensory deficits noted Sensorium / Orientation: awake and alert Speech: speech normal Psych affect normal Assessment & Plan Assessment/Plan (1) Admitted to alcohol detoxification center: PLAN: Plan 1. Acute alcohol withdrawal-patient will remain on her present medications, addiction social work professor will talk with the patient #2 hypomagnesemia-magnesium supplementation is being given to the patient, her magnesium level today was #3 essential hypertension-patient will remain on her present medication #4 hyperlipidemia-patient is on a statin #5 type 2 diabetes-patient's blood sugars will be monitored, sliding scale insulin will be given as necessary Total clinical time spent by myself addressing the patient's medical issues, reviewing all of her data, and collaborating with patient's care team: 35-minute Charges/Coding Visit Charges Inpatient E&M: 40102 Subs Hosp L2
[2025-05-27 16:23] LABS: Bedside Glucose 179 mg/dL (74-106)
[2025-05-27] MEDS: traZODone 100 MG Tablet PO (21:28)
[2025-05-27] MEDS: Phenobarbital 32.4 MG Tablet PO (21:28)
[2025-05-27] MEDS: Atorvastatin Calcium 40 MG Tablet PO (21:29)
[2025-05-27] MEDS: Acetaminophen 325 MG Tablet 650 MG PO (21:41)
[2025-05-27 22:31] LABS: Bedside Glucose 217 mg/dL (74-106)
[2025-05-28] MEDS: Phenobarbital 32.4 MG Tablet PO (06:29)
[2025-05-28] MEDS: hydrOXYzine PAM 25 MG Capsule 50 MG PO (06:29)
[2025-05-28] MEDS: Insulin Lispro 100 UNIT/ML INSULN.PEN SC ×2 (06:31→10:55)
[2025-05-28 06:34] VITALS: BP 124/82; PULSE 72; RESP 16; TEMP 36.1; O2SAT 99
[2025-05-28 06:53] LABS: Bedside Glucose 164 mg/dL (74-106)
[2025-05-28 07:33] VITALS: PULSE 73; RESP 16
[2025-05-28] MEDS: Budesonide Respules 0.5 MG/2 ML AMPUL.NEB. INHALATION (07:33)
[2025-05-28 08:00] VITALS: BP 115/74; PULSE 71; RESP 16; TEMP 36.3; O2SAT 95
[2025-05-28] MEDS: Lisinopril 40 MG Tablet PO (08:01)
[2025-05-28] MEDS: Magnesium Chloride 64 MG Delay Rel.Tablet 128 MG PO (08:01)
[2025-05-28] MEDS: Montelukast 10 MG Tablet PO (08:01)
[2025-05-28] MEDS: buPROPion (XL) 150 MG TABLET.XL PO (08:01)
[2025-05-28] MEDS: Citalopram 40 MG TABLET PO (08:01)
[2025-05-28] MEDS: Folic Acid 1 MG Tablet PO (08:01)
[2025-05-28 08:02] VITALS: PULSE 73
[2025-05-28] MEDS: Multivitamins,Ther W-Minerals Tablet 1 TABLET PO (08:02)
[2025-05-28] MEDS: Loratadine 10 MG Tablet PO (08:02)
[2025-05-28] MEDS: amLODIPine 5 MG Tablet PO (08:02)
[2025-05-28] MEDS: Pantoprazole Sodium 40 MG Tablet PO (08:02)
[2025-05-28] MEDS: Thiamine Hydrochloride 100 MG Tablet PO (08:02)
[2025-05-28] MEDS: Metoprolol(XL)Succ 25 MG Tablet PO (08:02)
[2025-05-28] MEDS: Aspirin 81 MG TAB.CHEW PO (08:02)
--- NOTE | 2025-05-28 10:20 | DCINST_ITS ---
Discharge Instructions Diet Discharge Diet: 1800 Calorie Control Diet DC O2, CPAP, BIPAP needs Home O2 Discharge instructions: No Dressing / Incision Discharge Activity: Return to Normal Activity Weight Bearing Status: Full weight bearing Follow Up Care Test Results: Test results from this visit will be discussed in further detail at your follow- up appointment, if applicable. Discharge Plan Admission Admit Date/Time: 05/25/25 00:33 Primary Reason for Your Visit: alcohol detox Attending Provider: Mao Becker Primary Care Provider: Abisai Haley Consulting Providers: Myra Null Instructions Additional Instructions / Restrictions: Follow up with outpatient detox ([facility]) as directed Discharge Orders/Prescriptions Prescriptions: Continued metformin 500 mg tablet 500 ea PO BID magnesium 250 mg tablet 250 mg PO DAILY cholecalciferol (vitamin D3) 50 mcg (2,000 unit) capsule 50 mcg PO DAILY albuterol sulfate 90 mcg/actuation HFA aerosol inhaler 2 puff inhalation Q6H PRN (Reason: shortness of breath or wheezing) Qty: 8.5 0RF aspirin 81 mg Tablet,Chewable 81 mg PO DAILY@0800 Qty: 30 0RF bupropion HCl 150 mg tablet extended release 24 hr 150 mg PO DAILY Patient Comments: take 1 tablet by mouth once daily montelukast [Singulair] 10 mg Tablet 10 mg PO DAILY pantoprazole 40 mg tablet,delayed release (DR/EC) 40 mg PO BID citalopram 40 mg tablet 40 mg PO DAILY lisinopril 40 mg tablet 40 mg PO DAILY levocetirizine 5 mg tablet 5 mg PO DAILY metoprolol succinate 25 mg tablet extended release 24 hr 25 mg PO DAILY Jardiance 25 mg tablet 25 mg PO DAILY buspirone 5 mg tablet 5 mg PO TID PRN (Reason: anxiety) amlodipine 5 mg tablet 5 mg PO DAILY hydroxyzine HCl 10 mg tablet 10 mg PO TID PRN PRN (Reason: anxiety) budesonide-formoterol 160-4.5 mcg/actuation HFA aerosol inhaler 2 puff INHALATION BID glimepiride 4 mg tablet 4 mg PO DAILY Qty: 30 0RF atorvastatin 40 mg tablet 40 mg PO DAILY Qty: 30 6RF Referrals / Follow Up: Abisai Haley MD [Primary Care Provider] - Disposition Disposition (needs filled in before D/C Order can be placed): Home, Self Care
[2025-05-28 11:14] LABS: Bedside Glucose 259 mg/dL (74-106)
--- NOTE | 2025-05-28 13:13 | PCM.DC.SUM ---
Providers Date of Admission: 05/25/25 Date of Discharge: 05/28/25 Primary Care Physician: Abisai Haley MD Reason For Visit: ETOH DETOXIFICATION, WITHDRAWL Diagnosis Discharge Diagnosis (1) Admitted to alcohol detoxification center: Status: Acute Plan 1. Acute alcohol withdrawal-patient will remain on her present medications, addiction social science research assistant will talk with the patient #2 hypomagnesemia-magnesium supplementation is being given to the patient, her magnesium level today was #3 essential hypertension-patient will remain on her present medication #4 hyperlipidemia-patient is on a statin #5 type 2 diabetes-patient's blood sugars will be monitored, sliding scale insulin will be given as necessary Total clinical time spent by myself addressing the patient's medical issues, reviewing all of her data, and collaborating with patient's care team: 35-minute Medications at Discharge Home Medications metformin 500 mg tablet 500 ea PO BID DIABETES 10/31/22 aspirin 81 mg chewable tablet 81 mg PO DAILY@0800 #30 tabs 11/19/22 bupropion HCl 150 mg 24 hr tablet, extended release 150 mg PO DAILY 01/21/23 montelukast 10 mg tablet (Singulair) 10 mg PO DAILY 04/09/23 pantoprazole 40 mg tablet,delayed release 40 mg PO BID 05/04/23 cholecalciferol (vitamin D3) 50 mcg (2,000 unit) capsule 50 mcg PO DAILY 08/25/23 magnesium 250 mg tablet 250 mg PO DAILY 08/25/23 albuterol sulfate 90 mcg/actuation aerosol inhaler 2 puff inhalation Q6H PRN shortness of breath or wheezing #8.5 grams 04/27/24 empagliflozin 25 mg tablet (Jardiance) 25 mg PO DAILY 11/12/24 metoprolol succinate 25 mg tablet,extended release 24 hr 25 mg PO DAILY 11/12/24 amlodipine 5 mg tablet 5 mg PO DAILY 04/04/25 buspirone 5 mg tablet 5 mg PO TID PRN anxiety 04/04/25 hydroxyzine HCl 10 mg tablet 10 mg PO TID PRN PRN anxiety 04/04/25 citalopram 40 mg tablet 40 mg PO DAILY 04/11/25 levocetirizine 5 mg tablet 5 mg PO DAILY 04/11/25 lisinopril 40 mg tablet 40 mg PO DAILY 04/11/25 atorvastatin 40 mg tablet 40 mg PO DAILY #30 tabs 04/16/25 budesonide-formoterol HFA 160 mcg-4.5 mcg/actuation aerosol inhaler 2 puff inhalation BID SOB 04/26/25 glimepiride 4 mg tablet 4 mg PO DAILY #30 tabs 05/06/25 Hospital Course Operations None Procedures None Summary of Care Provided Minutes Spent on Discharge: 31 Hospital Course: This 50-year-old white female was seen in the emergency room at [facility] desiring services for alcohol detox. She had been admitted previously only several weeks ago for pancreatitis and alcohol withdrawal and had already gone through the program at that time. Her toxicology screen was positive for barbiturates and benzodiazepines, but alcohol level was 312. Patient was admitted to [facility], orders were entered using the alcohol detox order set and she was seen by addiction social science research assistant. Patient had minimal withdrawal symptoms to hospitalization and there was no evidence of DTs. On 05/28/2025, patient was seen and examined: On examination he appeared in good health and spirits. Vital signs as documented. Skin warm and dry and without overt rashes. Neck without JVD, neck was supple, trachea midline, thyroid was normal. Lungs clear bilaterally, normal air movement was noted. Heart exam notable for regular rhythm, normal sounds and absence of murmurs, rubs or gallops. Abdomen unremarkable and without evidence of organomegaly, masses, or abdominal aortic enlargement. Bowel sounds are present, abdomen is not distended. Extremities nonedematous, no cyanosis was noted, no clubbing was noted. Neuro: Cranial nerves II through XII are grossly intact, no focal motor deficits were noted, sensation to light touch and pinprick intact, motor exam 5/5 throughout. Psych: Patient is alert and oriented x3, he does not appear anxious or depressed, he does not appear agitated. Patient was discharged home in stable condition on 05/28/2025 Weight / BMI Weight Weight: 56.7 kg Body Mass Index (BMI) 21.4 ABG / Lab / Microbiology Data 05/24/25 23:45 05/24/25 23:45 Laboratory: Laboratory Results - last 24 hr 05/27/25 16:01: POC Glucose 179 H 05/27/25 21:31: POC Glucose 217 H 05/28/25 06:30: POC Glucose 164 H 05/28/25 10:54: POC Glucose 259 H D/C Instructions Discharge Diet: 1800 Calorie Control Diet Weight Bearing Status: Full weight bearing DC O2, CPAP, BIPAP Needs Home O2 Discharge instructions: No Meaningful Use Info Meaningful Use Meaningful Use Diagnoses (Choose all that apply): None applicable Ischemic Stroke Statin Dosing Therapy Reference: STATIN DOSE THERAPY REFERENCE: * Patients > 75 years receive moderate or high dose statin therapy. * Patients 75 years or YOUNGER should receive HIGH intensity statin dose unless contraindicated. You will be required to document reason for non-treatment if statin daily dose does not meet guidelines. HIGH DOSE STATIN THERAPY DAILY Atorvastatin > than or = to 40 mg Rosuvastatin > than or = to 20 mg Amlodipine + Atorvastatin > than or = to 2.5/40 mg Ezetimibe + Simvastatin 10/80 mg Simvastatin 80mg Discharge Plan Admission Admit Date/Time: 05/25/25 00:33 Primary Reason for Your Visit: alcohol detox Attending Provider: Mao Becker Primary Care Provider: Abisai Haley Consulting Providers: Myra Null Instructions Additional Instructions / Restrictions: Follow up with outpatient detox (180) as directed Discharge Orders/Prescriptions Prescriptions: Continued metformin 500 mg tablet 500 ea PO BID magnesium 250 mg tablet 250 mg PO DAILY cholecalciferol (vitamin D3) 50 mcg (2,000 unit) capsule 50 mcg PO DAILY albuterol sulfate 90 mcg/actuation HFA aerosol inhaler 2 puff inhalation Q6H PRN (Reason: shortness of breath or wheezing) Qty: 8.5 0RF aspirin 81 mg Tablet,Chewable 81 mg PO DAILY@0800 Qty: 30 0RF bupropion HCl 150 mg tablet extended release 24 hr 150 mg PO DAILY Patient Comments: take 1 tablet by mouth once daily montelukast [Singulair] 10 mg Tablet 10 mg PO DAILY pantoprazole 40 mg tablet,delayed release (DR/EC) 40 mg PO BID citalopram 40 mg tablet 40 mg PO DAILY lisinopril 40 mg tablet 40 mg PO DAILY levocetirizine 5 mg tablet 5 mg PO DAILY metoprolol succinate 25 mg tablet extended release 24 hr 25 mg PO DAILY Jardiance 25 mg tablet 25 mg PO DAILY buspirone 5 mg tablet 5 mg PO TID PRN (Reason: anxiety) amlodipine 5 mg tablet 5 mg PO DAILY hydroxyzine HCl 10 mg tablet 10 mg PO TID PRN PRN (Reason: anxiety) budesonide-formoterol 160-4.5 mcg/actuation HFA aerosol inhaler 2 puff INHALATION BID glimepiride 4 mg tablet 4 mg PO DAILY Qty: 30 0RF atorvastatin 40 mg tablet 40 mg PO DAILY Qty: 30 6RF Referrals / Follow Up: Abisai Haley MD [Primary Care Provider] - Disposition Disposition (needs filled in before D/C Order can be placed): Home, Self Care Charges/Coding Visit Charges Inpatient E&M: 66775 Disch Hosp >30min
--- NOTE | 2025-05-28 13:32 | PHA.DC.MR.R ---
Pharmacy [place] Med Reconciliation Pharmacy Service has performed discharge medication reconciliation for this patient. The patient's discharge medication list was reviewed for discrepancies and discrepancies were resolved. Medications at Discharge Home Medications metformin 500 mg tablet 500 ea PO BID DIABETES 10/31/22 aspirin 81 mg chewable tablet 81 mg PO DAILY@0800 #30 tabs 11/19/22 bupropion HCl 150 mg 24 hr tablet, extended release 150 mg PO DAILY 01/21/23 montelukast 10 mg tablet (Singulair) 10 mg PO DAILY 04/09/23 pantoprazole 40 mg tablet,delayed release 40 mg PO BID 05/04/23 cholecalciferol (vitamin D3) 50 mcg (2,000 unit) capsule 50 mcg PO DAILY 08/25/23 magnesium 250 mg tablet 250 mg PO DAILY 08/25/23 albuterol sulfate 90 mcg/actuation aerosol inhaler 2 puff inhalation Q6H PRN shortness of breath or wheezing #8.5 grams 04/27/24 empagliflozin 25 mg tablet (Jardiance) 25 mg PO DAILY 11/12/24 metoprolol succinate 25 mg tablet,extended release 24 hr 25 mg PO DAILY 11/12/24 amlodipine 5 mg tablet 5 mg PO DAILY 04/04/25 buspirone 5 mg tablet 5 mg PO TID PRN anxiety 04/04/25 hydroxyzine HCl 10 mg tablet 10 mg PO TID PRN PRN anxiety 04/04/25 citalopram 40 mg tablet 40 mg PO DAILY 04/11/25 levocetirizine 5 mg tablet 5 mg PO DAILY 04/11/25 lisinopril 40 mg tablet 40 mg PO DAILY 04/11/25 atorvastatin 40 mg tablet 40 mg PO DAILY #30 tabs 04/16/25 budesonide-formoterol HFA 160 mcg-4.5 mcg/actuation aerosol inhaler 2 puff inhalation BID SOB 04/26/25 glimepiride 4 mg tablet 4 mg PO DAILY #30 tabs 05/06/25
[2025-05-28 13:43] VITALS: BP 117/77; PULSE 83; RESP 16; TEMP 36.6; O2SAT 96
== END 2025-05-28 14:19 | disposition home or self-care (01) | DRG 897 ==
LOC: ED 05-25 00:36 → MS3 05-25 02:13
PROVIDERS: Admitting Provider Family Medicine; Emergency Provider Surgery; PCP Family Medicine; Visit Provider Internal Medicine
DX: F10.239 Alcohol dependence with withdrawal, unspecified (principal); E11.9 Type 2 diabetes mellitus without complications; J44.9 Chronic obstructive pulmonary disease, unspecified; I10 Essential (primary) hypertension; F32.A Depression, unspecified; E86.0 Dehydration; G47.33 Obstructive sleep apnea (adult) (pediatric); F17.200 Nicotine dependence, unspecified, uncomplicated; E78.5 Hyperlipidemia, unspecified; J30.9 Allergic rhinitis, unspecified; F41.9 Anxiety disorder, unspecified; K21.9 Gastro-esophageal reflux disease without esophagitis; E83.42 Hypomagnesemia; Z79.82 Long term (current) use of aspirin; Y90.8 Blood alcohol level of 240 mg/100 ml or more; Z99.89 Dependence on other enabling machines and devices
CPT/HCPCS: 36415; 80053; 80307; 81001; 82077; 82962; 83735; 84100; 84703; 85025; 94640; 99284; A4216; J2405

== ENCOUNTER 2025-07-17 10:13 | Inpatient (IN) | payer SELFPAY ==
[2025-07-17] VITALS (15 sets, daily range): BP systolic 135–181; BP diastolic 65–105; PULSE 86–118; RESP 16–20; TEMP 36.7–37.1; O2SAT 91–100; BMI 20.7; BMI 21.2
--- NOTE | 2025-07-17 11:09 | CT_ITS ---
PROCEDURE: ABDOMEN/PELVIS W IV CONT ONLY 07/17/2025 REASON FOR EXAM: UPPER ABDOMINAL PAIN. HISTORY OF PANCREATITIS. TECHNIQUE: ABDOMEN/PELVIS W IV CONT ONLY Coronal and Sagittal reconstruction series were provided. CONTRAST: Isovue 370 VOLUME: 98 mL One or more dose reduction techniques were used (e.g., Automated exposure control, adjustment of the mA and/or kV according to patient size, use of iterative reconstruction technique. RADIATION DOSE SUMMARY: CTDlvol: 20 mGy DLP: 334 mGycm COMPARISON: April 26, 2025 and April 04, 2025 were unavailable for review FINDINGS: Lung bases: Clear Liver: Liver is mildly enlarged and severely fatty infiltrated. No mass is seen. Gallbladder: Cholecystectomy Spleen: Normal Pancreas: The pancreas shows no evidence of glandular atrophy in the main duct is 2-3 mm in size. Of the pancreatic head there are some dystrophic calcifications. The gland enhances uniformly and there is no evidence of pancreatic necrosis, but there is peripancreatic stranding with extension of some of the fluid across Gerota's fascia bilaterally. No pseudocyst is seen. Adrenals: Normal Kidneys: Normal Bladder: Normal Reproductive Organs: Uterus and ovaries are normal. Bowel: Stomach appears normal. Small bowel is not dilated. Calcification versus stool contents near the cecum. Appendix: Normal. Best seen on the coronal images just above the sacral promontory. Lymph nodes: None appear enlarged. Vasculature: Moderate atherosclerotic plaque without aneurysm. This is greater than would be expected for age. Peritoneum / Retroperitoneum: No free air, mass. Small volume free fluid in the cul-de-sac. Bones: No fracture CT/Abdomen/Pelvis W IV Cont ONLY IMPRESSION: 1. Acute on chronic, uncomplicated, interstitial edematous pancreatitis. 2. Cholecystectomy. No biliary duct dilation. 3. Mild liver enlargement. Very severe fatty infiltration. 4. Small volume free fluid in the cul-de-sac is reactive. Small free fluid in the retroperitoneum related to the pancreatitis. Reading Location: [id number]
--- NOTE | 2025-07-17 11:11 | ED.VIS.GI ---
HPI HPI - GI History of Present Illness Chief Complaint: Abd Pain Informant: patient Abdominal Pain/Flank Pain Onset: Today and Yesterday Context: Gradual Onset Timing: Continuous Quality: Aching Location: Epigastric, LUQ and See Diagram (Radiates into the back. History of pancreatitis feels the same.) Current Severity: Moderate Maximum Severity: Moderate Worsened by: Nothing Relieved by: Nothing Nausea/Vomiting/Emesis GI Symptom: Positive for Nausea and Vomiting Onset: Today Severity: Mild Diarrhea/Melena/Hematochezia GI Symptom: Negative for Diarrhea, Melena or Hematochezia Associated Symptoms Associated Symptoms: Negative for Dysuria, Frequency, Hematuria or Urgency Narrative Narrative: 50-year-old female history of prior pancreatitis, diabetes and hypertension. States she has had epigastric left upper quadrant and back pain yesterday and today. Associated nausea vomiting. No diarrhea. No melena. No fever. No hematemesis. Nothing particular makes the pain better or worse. Prior similar symptoms: Yes Recent Illness/Hospitalization: No PFSH [facility] Medical History Admitted to alcohol detoxification center Pancreatitis Hypokalemia Nausea & vomiting Intractable abdominal pain Strain of left foot Plantar fasciitis of left foot Acute otitis media, right Contact with or exposure to other viral diseases URI (upper respiratory infection) Alcohol abuse GERD (gastroesophageal reflux disease) CPAP (continuous positive airway pressure) dependence Smoker COPD (chronic obstructive pulmonary disease) Myocardial infarct Seizures History of left heart catheterization (LHC) (~11/19/22) Sleep apnea Pancreatitis Acute lumbar myofascial strain Strain of left hip Depression Anxiety Diabetes HTN (hypertension) Type 2 diabetes mellitus Home Medications ?Medication ?Instructions ?Recorded ?Last Taken ?Type metformin 500 mg tablet 500 ea PO BID DIABETES 10/31/22 11/17/22 21:30 History aspirin 81 mg chewable tablet 81 mg PO DAILY@0800 #30 tabs 11/19/22 04/26/25 Rx bupropion HCl 150 mg 24 hr tablet, 150 mg PO DAILY 01/21/23 Unknown History extended release montelukast 10 mg tablet 10 mg PO DAILY 04/09/23 Unknown History (Singulair) pantoprazole 40 mg tablet,delayed 40 mg PO BID 05/04/23 Unknown History release cholecalciferol (vitamin D3) 50 50 mcg PO DAILY 08/25/23 Unknown History mcg (2,000 unit) capsule magnesium 250 mg tablet 250 mg PO DAILY 08/25/23 Unknown History albuterol sulfate 90 mcg/actuation 2 puff inhalation Q6H PRN 04/27/24 Unknown Rx aerosol inhaler shortness of breath or wheezing #8.5 grams empagliflozin 25 mg tablet 25 mg PO DAILY 11/12/24 Unknown History (Jardiance) metoprolol succinate 25 mg 25 mg PO DAILY 11/12/24 Unknown History tablet,extended release 24 hr amlodipine 5 mg tablet 5 mg PO DAILY 04/04/25 Unknown History buspirone 5 mg tablet 5 mg PO TID PRN anxiety 04/04/25 Unknown History hydroxyzine HCl 10 mg tablet 10 mg PO TID PRN PRN anxiety 04/04/25 Unknown History levocetirizine 5 mg tablet 5 mg PO DAILY 04/11/25 Unknown History lisinopril 40 mg tablet 40 mg PO DAILY 04/11/25 Unknown History atorvastatin 40 mg tablet 40 mg PO DAILY #30 tabs 04/16/25 Unknown Rx budesonide-formoterol HFA 160 2 puff inhalation BID SOB 04/26/25 Unknown History mcg-4.5 mcg/actuation aerosol inhaler glimepiride 4 mg tablet 4 mg PO DAILY #30 tabs 05/06/25 Unknown Rx fluoxetine 40 mg capsule 40 mg PO DAILY 07/17/25 Unknown History Allergy/AdvReac Type Severity Reaction Status Date / Time No Known Allergies Allergy Verified 07/17/25 10:16 Family History Grandfather CVA (cerebral vascular accident) Diabetes Mother Cancer Father Hypertension Grandmother Hypertension Diabetes Surgical History History of cholecystectomy H/O tooth extraction plantar fasciitis release Social History household members: spouse and children housing: house pets and animals: Yes Smoking Status: Light Smoker (<10/day) alcohol intake: current alcohol intake frequency: 3 or more drinks per day Alcohol type: hard liquor details: At least 1/5 vodka daily, recently increased EtOH intake. substance use type: does not use ROS ROS ED ROS Narrative Upper abdominal pain. Nausea vomiting. Constitutional Constitutional ED: Denies chills or fever(s) ENT ENT ED: Denies ear pain Cardiovascular Cardiovascular: Denies chest pain Respiratory/Chest Respiratory/Chest: Denies cough or dyspnea Gastrointestinal Gastrointestinal: Reports abdominal pain, nausea and vomiting; Denies constipation, diarrhea or melena Genitourinary Genitourinary ED: Denies dysuria or hematuria Musculoskeletal Musculoskeletal: Reports back pain; Denies arthralgias Integumentary Denies abscess or Abrasions Neurologic Neurologic: Denies headache(s) Psychiatric Psychiatric: Denies anxiety Endocrine Endocrinology: Denies polydipsia Hematologic/Lymphatic Hematologic/Lymphatic: Denies easy bleeding Allergic/Immunologic Allergic/Immunologic ED: Denies mouth swelling, tongue swelling or urticaria EXAM Physical Exam Narrative Exam Narrative: 50-year-old female sitting upright in bed. Vital signs are stable afebrile does not look septic or toxic. Is complaining of upper abdominal pain. H EENT exam pupils round react light. Moist mucous membranes. Neck nontender no JVD. Lungs clear to auscultation bilaterally. Heart tachycardic no murmur. Rate about 110. Chest wall and ribs nontender. Abdomen soft nondistended normal bowel sounds without peritoneal signs. Has both epigastric and left upper quadrant tenderness. No hernia or mass. No Christina sign. No McBurney's point tenderness. No distention. No pulsatile mass. No obstruction. Back no reproducible pain. Moving all 4 extremities. Nontender. No edema normal strength. Neurologically she is awake alert. Answering questions and following commands. Const Vital Signs: 07/17/25 10:14 07/17/25 10:33 07/17/25 12:13 Temperature 98.8 F 98.8 F Temperature Source Oral Oral Pulse Rate 110 H 110 H 86 Respiratory Rate 18 18 16 Blood Pressure 161/105 H 161/105 H 148/65 H Blood Pressure Mean 123 123 92 Pulse Ox 96 96 100 Oxygen Delivery Method Room Air Room Air Room Air Positive well nourished and well developed; Negative for obese, cachectic, contractures or unkempt General Appearance ED: well developed and NAD; Negative for unkempt, cachectic, contractures or pallor Nutritional Appearance: Negative for cachectic or obese HEENT Reports moist mucous membranes normocephalic and atraumatic Eyes PERRL and EOMs intact bilaterally Neck no lymphadenopathy, supple and no JVD Resp normal respiratory effort and clear to auscultation bilaterally Cardio regular rhythm, S1 normal heart sound, S2 normal heart sound and no murmurs; Negative for regular rate Rate: tachycardic GI non-distended; Negative for non-tender Auscultation: normoactive bowel sounds Palpation: soft and tender; Negative for guarding, hernia, mass, pulsatile mass or rebound tenderness present Back/Spine no CVA tenderness General Back: Negative for CVA tenderness Cervical Spine: Negative for cervical spine tenderness Thoracic Spine / Upper Back: Negative for thoracic spinal tenderness Lumbar Spine / Lower Back: Negative for lumbar spinal tenderness Extremity full ROM General Extremety ED: Negative for edema or tenderness General Extremity: Negative for edema Neuro CN's II-XII intact bilaterally and moves all extremities Sensorium / Orientation: alert, oriented to person, oriented to place and oriented to time Motor Exam: strength 5/5 throughout Psych mental status grossly normal and thought process normal Appearance: Negative for unkempt Attitude: No agitated Mood & Affect: Negative for depressed, anxious or tearful Skin no wounds General Skin Exam: Negative for jaundice or pallor Lesions: no lesions Rashes: no rashes Trauma: Negative for abrasion Nails: Negative for discolored MDM MDM MDM Narrative Medical decision making narrative: 50-year-old female upper abdominal pain history of pancreatitis. CAT scan and labs to be obtained. This could be pancreatitis versus gastritis versus other etiologies. She has had her gallbladder out. Clinically does not look like an appendicitis or bowel obstruction. She is not having any urinary symptoms. Should be treated with IV fluids, morphine and Zofran. Repeat exam around 12:50 PM patient doing well. Still having pain show given additional morphine and Zofran. We discussed her test results and her diagnosis of acute on chronic pancreatitis. I have the hospitalist on page for admission. Patient is comfortable with the plan. History & Record Review Discussion w/independent historian: Patient and Family Additional record(s) reviewed:: Prior inpatient record, Prior outpatient record, Prior ED visit and Prior labs Lab Data Attestation: I reviewed the patient's lab results. Lab results narrative: CBC shows a white count of 7. H&H 13 and 38. Platelets 150. Electrolytes show potassium 3.0. Gap 19. BUN and creatinine is six 0.309. Glucose 120. Liver enzymes show slightly elevated AST and ALT. Lipase is elevated 3000. Amylase is elevated 898. Urinalysis showed no white or red cells. No bacteria or nitrates. CAT scan consistent with chronic pancreatitis. Labs: Laboratory Results - last 24 hr 07/17/25 07/17/25 07/17/25 10:35 11:30 12:00 WBC 7.0 RBC 3.90 L Hgb 13.2 Hct 38.5 MCV 98.7 MCH 33.8 H MCHC 34.3 RDW Std Deviation 56.5 H RDW Coeff of Braxton 15.9 H Plt Count 150 MPV 9.7 Immature Gran % (Auto) 0.600 Neut % (Auto) 80.3 H Lymph % (Auto) 11.2 L Webb % (Auto) 7.2 Eos % (Auto) 0.3 Baso % (Auto) 0.4 Absolute Neuts (auto) 5.6 Absolute Lymphs (auto) 0.78 L Nucleated RBC % 0 Sodium 144 Potassium 3.0 L Chloride 99 Carbon Dioxide 25.6 Anion Gap 19 H BUN 6 Creatinine 0.39 L Estim Creat Clear Calc 152.33 Est GFR (MDRD) Non-Af 123 BUN/Creatinine Ratio 15.5 Glucose 120 H Calcium 8.6 Total Bilirubin 0.43 AST 165 H ALT 92 H Alkaline Phosphatase 98 Total Protein 6.6 Albumin 3.9 Globulin 2.7 Albumin/Globulin Ratio 1.4 Amylase 898 H Lipase > 3000 H Urine Color Yellow Urine Clarity Clear Urine pH 6.5 Ur Specific Kinsey 1.010 Urine Protein 30 H Urine Glucose (UA) Normal Urine Ketones 5 H Urine Occult Blood 10 H Urine Nitrite Negative Urine Bilirubin Negative Urine Urobilinogen Normal Ur Leukocyte Esterase 25 H Urine RBC 0 SEEN Urine WBC 0 SEEN Ur Squamous Epith Cells 0-5 SEEN Urine Bacteria 0 SEEN Urine Mucus 0 SEEN Ethyl Alcohol 34.9 H Radiography Diagnostic Testing: Clinical Impression(s) from Imaging Studies Abdomen/Pelvis CT 07/17/25 11:09 IMPRESSION: 1. Acute on chronic, uncomplicated, interstitial edematous pancreatitis. 2. Cholecystectomy. No biliary duct dilation. 3. Mild liver enlargement. Very severe fatty infiltration. 4. Small volume free fluid in the cul-de-sac is reactive. Small free fluid in the retroperitoneum related to the pancreatitis. Reading Location: [id number] Discharge Plan Triage Chief Complaint: Abd Pain ED Provider: Francisco Colon Dx/Rx/DC Orders Clinical Impression: Abdominal pain, Acute alcoholic pancreatitis, History of diabetes mellitus Prescriptions: No Action metformin 500 mg tablet 500 ea PO BID magnesium 250 mg tablet 250 mg PO DAILY cholecalciferol (vitamin D3) 50 mcg (2,000 unit) capsule 50 mcg PO DAILY albuterol sulfate 90 mcg/actuation HFA aerosol inhaler 2 puff inhalation Q6H PRN (Reason: shortness of breath or wheezing) Qty: 8.5 0RF aspirin 81 mg Tablet,Chewable 81 mg PO DAILY@0800 Qty: 30 0RF bupropion HCl 150 mg tablet extended release 24 hr 150 mg PO DAILY Patient Comments: take 1 tablet by mouth once daily montelukast [Singulair] 10 mg Tablet 10 mg PO DAILY pantoprazole 40 mg tablet,delayed release (DR/EC) 40 mg PO BID lisinopril 40 mg tablet 40 mg PO DAILY levocetirizine 5 mg tablet 5 mg PO DAILY fluoxetine 40 mg capsule 40 mg PO DAILY metoprolol succinate 25 mg tablet extended release 24 hr 25 mg PO DAILY Jardiance 25 mg tablet 25 mg PO DAILY buspirone 5 mg tablet 5 mg PO TID PRN (Reason: anxiety) amlodipine 5 mg tablet 5 mg PO DAILY hydroxyzine HCl 10 mg tablet 10 mg PO TID PRN PRN (Reason: anxiety) budesonide-formoterol 160-4.5 mcg/actuation HFA aerosol inhaler 2 puff INHALATION BID glimepiride 4 mg tablet 4 mg PO DAILY Qty: 30 0RF atorvastatin 40 mg tablet 40 mg PO DAILY Qty: 30 6RF Primary Care Provider: Abisai Haley Referrals: Abisai Haley MD [Primary Care Provider] - Print Language: Kittitian Disposition Disposition: Acute Care Hospital [facility]
[2025-07-17 11:20] LABS: Hematocrit 38.5 % (37-47); Hemoglobin 13.2 g/dL (12.0-15.0); Immature Granulocytes Count 0.040 X10^3/uL (0.0-0.0); Mean Corp Hgb Conc 34.3 g/dL (32-36); Mean Corpuscular Volume 98.7 fL (81-99); Mean Platelet Vol. 9.7 fl (6.2-12.0); NRBC Flagged by Analyzer 0 % (0-5); Platelet Count 150 K/mm3 (150-450); RBC Distribution Width CV 15.9 % (11.6-14.6); RBC Distribution Width SD 56.5 fl (35.1-43.9); Red Blood Count 3.90 M/mm3 (4.2-5.4); White Blood Count 7.0 K/mm3 (4.4-11.0)
[2025-07-17] MEDS: 0.9% Normal Saline (1000mL) 1,000 ML 999 ML IV (11:25)
[2025-07-17 11:41] LABS: AST(SGOT) 165 U/L (<=31); Alanine Aminotransfer ALT/SGPT 92 U/L (<=34); Albumin, Serum 3.9 g/dL (3.5-5.0); Alkaline Phosphatase 98 U/L (35-104); Anion Gap 19 (5-15); BUN 6 mg/dL (4-19); BUN/Creat Ratio 15.5 RATIO (10-20); Calcium,Total 8.6 mg/dL (7.6-11.0); Carbon Dioxide 25.6 mmol/L (21.0-32.0); Chloride 99 mmol/L (98-108); Estimated Creatinine Clearance 152.33 ml/min (50-250); Globulin 2.7 g/dL (2.2-4.2); Glucose 120 mg/dL (70-99); Potassium 3.0 mmol/L (3.3-5.1)
[2025-07-17 12:05] LABS: Amylase 898 U/L (28-100); Lipase > 3000 U/L (13-75)
[2025-07-17 12:11] LABS: Mucous, Urine 0 SEEN /hpf (<or=2+); Red Blood Cells-Urine 0 SEEN /hpf (0-5)
[2025-07-17 12:14] LABS: Color, Urine Yellow (Yellow); Glucose, Dipstick Normal (Normal); Ketone-Dipstick 5 mg/dl (Negative); Leukocyte Esterase-Dipstick 25 /ul (Negative); Nitrite-Dipstick Negative (Negative); Occult Blood-Urine 10 /ul (Negative); Protein-Dipstick 30 mg/dl (Negative); Specific Gravity, Urine 1.010 (1.002-1.030); Urine Bilirubin Dipstick Negative (Negative)
[2025-07-17 12:21] LABS: Alcohol, Blood (Medical)-Serum 34.9 mg/dL (<=10.0)
[2025-07-17 12:22] LABS: Squamous Epithelial Cells - UA 0-5 SEEN /hpf (5-10)
[2025-07-17 12:55] LABS: Internal QC Validated? YES +Cl - CLEAR BKGD; Pregnancy, Serum, hCG Quali. NEGATIVE Negative; Record Kit Lot#, Serum Preg. 0000962302
--- NOTE | 2025-07-17 13:04 | PCM.HP.STD ---
HPI - General General Date of Admission: 07/17/25 Date of Service: 07/17/25 Chief Complaint: Abdominal pain HPI Narrative JOSEPH RINCON, is a 50 F who presents presented with abdominal pain. Patient has history significant for chronic alcohol dependence for which patient has been admitted on several occasions for alcohol-related issues including previous pancreatitis as well as alcohol withdrawal. Patient reported having relapse following her recent admission for acute alcohol withdrawal and pancreatitis after her passed. Her last drink was on the night prior to coming in. Patient symptoms started a day prior to coming in. Pain was located in the epigastric region wrapping around to the back became more intense on the morning of her presentation necessitating patient presented to the emergency department. Lipase levels on admission was greater than 3000. An assessment of acute alcohol induced pancreatitis made admitted to regular nursing floor for further manage [facility] Medical History Admitted to alcohol detoxification center Pancreatitis Hypokalemia Nausea & vomiting Intractable abdominal pain Strain of left foot Plantar fasciitis of left foot Acute otitis media, right Contact with or exposure to other viral diseases URI (upper respiratory infection) Alcohol abuse GERD (gastroesophageal reflux disease) CPAP (continuous positive airway pressure) dependence Smoker COPD (chronic obstructive pulmonary disease) Myocardial infarct Seizures History of left heart catheterization (LHC) (~11/19/22) Sleep apnea Pancreatitis Acute lumbar myofascial strain Strain of left hip Depression Anxiety Diabetes HTN (hypertension) Type 2 diabetes mellitus Home Medications ?Medication ?Instructions ?Recorded ?Last Taken ?Type metformin 500 mg tablet 500 ea PO BID DIABETES 10/31/22 11/17/22 21:30 History aspirin 81 mg chewable tablet 81 mg PO DAILY@0800 #30 tabs 11/19/22 04/26/25 Rx bupropion HCl 150 mg 24 hr tablet, 150 mg PO DAILY 01/21/23 Unknown History extended release montelukast 10 mg tablet 10 mg PO DAILY 04/09/23 Unknown History (Singulair) pantoprazole 40 mg tablet,delayed 40 mg PO BID 05/04/23 Unknown History release cholecalciferol (vitamin D3) 50 50 mcg PO DAILY 08/25/23 Unknown History mcg (2,000 unit) capsule magnesium 250 mg tablet 250 mg PO DAILY 08/25/23 Unknown History albuterol sulfate 90 mcg/actuation 2 puff inhalation Q6H PRN 04/27/24 Unknown Rx aerosol inhaler shortness of breath or wheezing #8.5 grams empagliflozin 25 mg tablet 25 mg PO DAILY 11/12/24 Unknown History (Jardiance) metoprolol succinate 25 mg 25 mg PO DAILY 11/12/24 Unknown History tablet,extended release 24 hr amlodipine 5 mg tablet 5 mg PO DAILY 04/04/25 Unknown History buspirone 5 mg tablet 5 mg PO TID PRN anxiety 04/04/25 Unknown History hydroxyzine HCl 10 mg tablet 10 mg PO TID PRN PRN anxiety 04/04/25 Unknown History levocetirizine 5 mg tablet 5 mg PO DAILY 04/11/25 Unknown History lisinopril 40 mg tablet 40 mg PO DAILY 04/11/25 Unknown History atorvastatin 40 mg tablet 40 mg PO DAILY #30 tabs 04/16/25 Unknown Rx budesonide-formoterol HFA 160 2 puff inhalation BID SOB 04/26/25 Unknown History mcg-4.5 mcg/actuation aerosol inhaler glimepiride 4 mg tablet 4 mg PO DAILY #30 tabs 05/06/25 Unknown Rx fluoxetine 40 mg capsule 40 mg PO DAILY 07/17/25 Unknown History Allergy/AdvReac Type Severity Reaction Status Date / Time No Known Allergies Allergy Verified 07/17/25 10:16 Family History Grandfather CVA (cerebral vascular accident) Diabetes Mother Cancer Father Hypertension Grandmother Hypertension Diabetes Surgical History History of cholecystectomy H/O tooth extraction plantar fasciitis release Social History household members: spouse and children housing: house pets and animals: Yes Smoking Status: Light Smoker (<10/day) alcohol intake: current alcohol intake frequency: 3 or more drinks per day Alcohol type: hard liquor details: At least 1/5 vodka daily, recently increased EtOH intake. substance use type: does not use ROS ROS Narrative GENERAL: denies fever, chills, night sweats, weight loss, anorexia HEENT: denies headache, sinus congestion, or drainage, dysphagia RESPIRATORY: denies cough, sputum production, shortness of breath, dyspnea on exertion CARDIAC: denies chest pain, palpitations, orthopnea, PND GASTROINTESTINAL: Abdominal pain and nausea GENITOURINARY: denies dysuria, urgency, frequency, heamaturia EXTREMITY: denies swelling MUSCULOSKELETAL: denies current joint pain or tenderness NEUROLOGIC: denies focal numbness, weakness, tingling HEMATOLOGIC: denies easy bruising and/or hemorrhage INTEGUMENT: denies rashes PSYCHIATRIC: denies suicidal or homicidal ideation Vital Signs Vital Signs Vital Signs: 07/17/25 10:14 07/17/25 10:33 07/17/25 12:13 Temperature 98.8 F 98.8 F Temperature Source Oral Oral Pulse Rate 110 H 110 H 86 Respiratory Rate 18 18 16 Blood Pressure 161/105 H 161/105 H 148/65 H Blood Pressure Mean 123 123 92 Pulse Ox 96 96 100 Oxygen Delivery Method Room Air Room Air Room Air Weight Weight: 54.93 kg Body Mass Index (BMI) 20.7 Physical Exam Narrative GENERAL: cooperative but tremulous at rest HEENT: Atraumatic; normocephalic EYES; Anicteric, Normal Conjunctiva NECK; supple, normal thyroid, RESPIRATORY: Diminished to auscultation CARDIOVASCULAR: Regular S1 S2, GI: soft, normoactive bowel sounds, : No Renal angle tenderness; EXTREMITIES: No edema, no clubbing, MUSCULOSKELETAL: no muscle wasting NEURO: Awake; no lateralizing signs. SKIN: No Rash PSYCH; Flat affect Results Lab / Micro Data 07/17/25 10:35 07/17/25 10:35 Labs: Laboratory Results - last 24 hr 07/17/25 10:35: WBC 7.0, RBC 3.90 L, Hgb 13.2, Hct 38.5, MCV 98.7, MCH 33.8 H, MCHC 34.3, RDW Std Deviation 56.5 H, RDW Coeff of Braxton 15.9 H, Plt Count 150, MPV 9.7, Immature Gran % (Auto) 0.600, Neut % (Auto) 80.3 H, Lymph % (Auto) 11.2 L, Storey % (Auto) 7.2, Eos % (Auto) 0.3, Baso % (Auto) 0.4, Absolute Neuts (auto) 5.6, Absolute Lymphs (auto) 0.78 L, Nucleated RBC % 0, Sodium 144, Potassium 3.0 L, Chloride 99, Carbon Dioxide 25.6, Anion Gap 19 H, BUN 6, Creatinine 0.39 L, Estim Creat Clear Calc 152.33, Est GFR (MDRD) Non-Af 123, BUN/Creatinine Ratio 15.5, Glucose 120 H, Calcium 8.6, Total Bilirubin 0.43, AST 165 H, ALT 92 H, Alkaline Phosphatase 98, Total Protein 6.6, Albumin 3.9, Globulin 2.7, Albumin/Globulin Ratio 1.4, Amylase 898 H, Lipase > 3000 H 07/17/25 11:30: Serum , Qual NEGATIVE, Ethyl Alcohol 34.9 H 07/17/25 12:00: Urine Color Yellow, Urine Clarity Clear, Urine pH 6.5, Ur Specific [place] 1.010, Urine Protein 30 H, Urine Glucose (UA) Normal, Urine Ketones 5 H, Urine Occult Blood 10 H, Urine Nitrite Negative, Urine Bilirubin Negative, Urine Urobilinogen Normal, Ur Leukocyte Esterase 25 H, Urine RBC 0 SEEN, Urine WBC 0 SEEN, Ur Squamous Epith Cells 0-5 SEEN, Urine Bacteria 0 SEEN, Urine Mucus 0 SEEN Imaging Radiology Impression Abdomen/Pelvis CT 07/17/25 11:09 IMPRESSION: 1. Acute on chronic, uncomplicated, interstitial edematous pancreatitis. 2. Cholecystectomy. No biliary duct dilation. 3. Mild liver enlargement. Very severe fatty infiltration. 4. Small volume free fluid in the cul-de-sac is reactive. Small free fluid in the retroperitoneum related to the pancreatitis. Reading Location: [id number] Assessment & Plan Assessment/Plan (1) Acute alcoholic pancreatitis: PLAN: Plan Patient is a 50-year-old lady with history of alcohol dependence, prior episodes of pancreatitis who presented with abdominal pain. Patient was found to have elevated lipase level consistent with acute pancreatitis admitted to regular nursing floor for further 1. Acute on chronic pancreatitis ? Patient has been admitted to a monitored bed for symptom management including IV fluids, pain meds as well as antinausea medication.. Patient lipase level markedly elevated on admission greater than 3000 repeat levels ordered in a.m. 2. Alcohol withdrawal ? Patient was started on CIWA protocol placed on phenobarb taper. Patient was counseled on the need for cessation. She plans to follow-up with her MAT following this 3. Hypokalemia ? Patient started on potassium replacement repeat labs ordered in a.m. for follow-up 4. Acute alcoholic hepatitis ? Following with serial LFTs in a.m. 5. Acute hypertensive urgency ? Patient blood pressure markedly elevated on admission her pain may be contributing to the elevated blood pressure did continue with home meds ordered hydralazine as needed for systolic blood pressure greater than 160 6. Dyslipidemia ?Patient is on statin therapy, continued at home dose 7. COPD ? Currently not in exacerbation aerosol treatments as needed 8. Diabetes mellitus type II -patient's oral hypoglycemics held. Placed on long acting insulin, Accu-Cheks a.c. and at bedtime and covered with sliding scale insulin 9. GERD ? Patient is on Protonix 40 mg twice daily?continue home 10. Tobacco dependence ? Counseled on cessation, offered nicotine patch for tobacco cravings 11. Depression with anxiety ? Patient is on citalopram bupropion as well as buspirone held buspirone continue with the 12. Severe malnutrition. Related to: inadequate oral intake; As evidenced by: 10% unintentional weight loss x <1 month and PO meeting <50% of estimated nutrition needs x 1 month. Consult placed to dietitian ?13. DVT prophylaxis ? On enoxaparin Time spent in the patient's overall evaluation,decision-making process, review of diagnostic data, adjustment of management, discussion with other providers, nursing nursing and ancillary staff involved in patient's care documentation, 75 minutes Charges/Coding Multi Select Codes Visit Charges Visit Charges: 11368 Init Hosp L3
--- NOTE | 2025-07-17 13:39 | CASEMGMT ---
Care Management Face to Face with patient for initial transition planning/care coordination assessment in the ED.? This appeals writer introduced self and role at [facility]. Patient alert and oriented. Patient willing to participate in assessment and is able to answer all questions appropriately.? Care providers, pharmacy, and demographics verified. Admitting Diagnosis: Abd pain Other diagnosis history: ?hypokalemia, GERD, COPD, [place], pancreatitis, HTN, DM2 PCP: ?Sudha Specialists: ERLIN, Cardiology Preferred Pharmacy: [facility] Insurance: ?Self pay Prescription Benefit: ?none Living Will/HPOA: ?none LNOK: ? Living Arrangements: ?patient lives with and adult children in 2 story home.? Reports to being independent with ADLs and IADLs Transportation: ?self DME: ?shower chair, raised toilet, grab bars, cpap HHC: ?none SNF/Rehab: ?none Community Resources: ?none Behavioral Health History: ?depression, anxiety Patient goals: Patient wishes to discharge home, denies need for home health care at this time. Patient denies any further needs or concerns at this time. Disposition Plan: admission to acute; RN CM/SW to follow for discharge planning needs that may arise. April Fernandez, SENIOR SEARCH MARKETING ANALYST, DISH 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
[2025-07-17] MEDS: KCL 20MEQ in 0.9% NS 20 MEQ/1,000 ML IV.SOLN. 200 MEQ IV ×2 (14:08→19:24)
[2025-07-17] MEDS: hydrOXYzine PAM 25 MG Capsule 50 MG PO ×2 (14:10→22:20)
[2025-07-17 14:45] LABS: Prothrombin Time (Protime)PT. 12.9 SECONDS (11.7-14.9)
[2025-07-17] MEDS: 0.9% Saline Lock 10 ML Syringe IV ×2 (15:50→21:01)
[2025-07-17 15:54] LABS: Magnesium 1.1 mg/dL (1.5-2.2)
[2025-07-17] MEDS: Magnesium Sulfate 4gm/100mL 4 GM/100 ML IV.SOLN. IV (17:15)
[2025-07-17] MEDS: Albuterol 2.5 MG/3 ML VIAL.NEB. INHALATION (20:10)
[2025-07-17] MEDS: Budesonide Respules 0.5 MG/2 ML AMPUL.NEB. INHALATION (20:10)
--- NOTE | 2025-07-17 20:40 | NURSING ---
late entry: Patient state that she did not get pain relief with oxycodone. Pt asking for Dilaudid.
[2025-07-17] MEDS: Magnesium Chloride 64 MG Delay Rel.Tablet 128 MG PO (22:21)
[2025-07-17] MEDS: Metoprolol(XL)Succ 25 MG Tablet PO (22:46)
[2025-07-18] VITALS (14 sets, daily range): BP systolic 103–178; BP diastolic 58–85; PULSE 81–106; RESP 16–20; TEMP 36.3–37.2; O2SAT 94–96; BMI 22.7
[2025-07-18] MEDS: KCL 20MEQ in 0.9% NS 20 MEQ/1,000 ML IV.SOLN. 200 MEQ IV ×3 (00:34→11:12)
[2025-07-18 06:42] LABS: Hematocrit 32.6 % (37-47); Hemoglobin 10.8 g/dL (12.0-15.0); Immature Granulocytes Count 0.030 X10^3/uL (0.0-0.0); Mean Corp Hgb Conc 33.1 g/dL (32-36); Mean Corpuscular Volume 102.2 fL (81-99); Mean Platelet Vol. 10.0 fl (6.2-12.0); NRBC Flagged by Analyzer 0 % (0-5); Platelet Count 103 K/mm3 (150-450); RBC Distribution Width CV 15.8 % (11.6-14.6); RBC Distribution Width SD 58.9 fl (35.1-43.9); Red Blood Count 3.19 M/mm3 (4.2-5.4); White Blood Count 4.6 K/mm3 (4.4-11.0)
[2025-07-18] MEDS: Budesonide Respules 0.5 MG/2 ML AMPUL.NEB. INHALATION ×2 (06:46→19:50)
[2025-07-18] MEDS: Albuterol 2.5 MG/3 ML VIAL.NEB. INHALATION ×3 (06:46→19:50)
[2025-07-18 07:08] LABS: Magnesium 1.7 mg/dL (1.5-2.2)
[2025-07-18 07:22] LABS: AST(SGOT) 788 U/L (<=31); Alanine Aminotransfer ALT/SGPT 223 U/L (<=34); Albumin, Serum 3.3 g/dL (3.5-5.0); Alkaline Phosphatase 176 U/L (35-104); Anion Gap 13 (5-15); BUN 5 mg/dL (4-19); BUN/Creat Ratio 16.1 RATIO (10-20); Calcium,Total 7.0 mg/dL (7.6-11.0); Carbon Dioxide 24.0 mmol/L (21.0-32.0); Chloride 100 mmol/L (98-108); Estimated Creatinine Clearance 185.66 ml/min (50-250); Globulin 2.2 g/dL (2.2-4.2); Glucose 76 mg/dL (70-99); Potassium 3.6 mmol/L (3.3-5.1)
[2025-07-18] MEDS: Thiamine Hydrochloride 100 MG Tablet PO (07:43)
[2025-07-18] MEDS: 0.9% Saline Lock 10 ML Syringe IV ×2 (07:45→23:19)
--- NOTE | 2025-07-18 07:45 | PCM.PN.HOSP ---
Reason for Visit Chief Complaint: Abdominal pain Subjective Subjective Patient seen still complains of significant abdominal pain and nausea. Adjusted her Zofran frequency from Q8 to every 4 hours. Patient has elevated transaminases lipase level slightly down. Blood pressure remains elevated Objective Data Objective Data Vital Signs: Vital Signs Temp Pulse Resp BP Pulse Ox O2 Del Method O2 Flow Rate 98.5 F 95 16 178/85 H 95 Room Air 1 07/18/25 07:21 07/18/25 07:21 07/18/25 07:21 07/18/25 07:21 07/18/25 07:21 07/18/25 07:21 07/18/25 05:10 Oxygen Flow Rate (L/min) 1 Oxygen Delivery Method Room Air Weight: 60.5 kg Body Mass Index (BMI) 22.7 Intake & Output: Intake and Output for Last 24 Hours 07/16/25 07/17/25 07/18/25 23:59 23:59 23:59 Intake Total 2580 / 2580 2400 / 2400 Output Total 400 / 400 300 / 300 Balance 2180 / 2180 2100 / 2100 Lab / Micro Data 07/18/25 06:13 07/18/25 06:13 Labs: Laboratory Results - last 24 hr 07/17/25 10:35: WBC 7.0, RBC 3.90 L, Hgb 13.2, Hct 38.5, MCV 98.7, MCH 33.8 H, MCHC 34.3, RDW Std Deviation 56.5 H, RDW Coeff of Braxton 15.9 H, Plt Count 150, MPV 9.7, Immature Gran % (Auto) 0.600, Neut % (Auto) 80.3 H, Lymph % (Auto) 11.2 L, [place] % (Auto) 7.2, Eos % (Auto) 0.3, Baso % (Auto) 0.4, Absolute Neuts (auto) 5.6, Absolute Lymphs (auto) 0.78 L, Nucleated RBC % 0, PT 12.9, INR 1.0, Sodium 144, Potassium 3.0 L, Chloride 99, Carbon Dioxide 25.6, Anion Gap 19 H, BUN 6, Creatinine 0.39 L, Estim Creat Clear Calc 152.33, Est GFR (MDRD) Non-Af 123, BUN/Creatinine Ratio 15.5, Glucose 120 H, Calcium 8.6, Phosphorus 4.4, Magnesium 1.1 L, Total Bilirubin 0.43, AST 165 H, ALT 92 H, Alkaline Phosphatase 98, Total Protein 6.6, Albumin 3.9, Globulin 2.7, Albumin/Globulin Ratio 1.4, Amylase 898 H, Lipase > 3000 H 07/17/25 11:30: Serum , Qual NEGATIVE, Ethyl Alcohol 34.9 H 07/17/25 12:00: Urine Color Yellow, Urine Clarity Clear, Urine pH 6.5, Ur Specific [place] 1.010, Urine Protein 30 H, Urine Glucose (UA) Normal, Urine Ketones 5 H, Urine Occult Blood 10 H, Urine Nitrite Negative, Urine Bilirubin Negative, Urine Urobilinogen Normal, Ur Leukocyte Esterase 25 H, Urine RBC 0 SEEN, Urine WBC 0 SEEN, Ur Squamous Epith Cells 0-5 SEEN, Urine Bacteria 0 SEEN, Urine Mucus 0 SEEN 07/17/25 16:58: POC Glucose 71 L 07/17/25 22:11: POC Glucose 151 H 07/18/25 06:13: WBC 4.6, RBC 3.19 L, Hgb 10.8 L, Hct 32.6 L, MCV 102.2 H, MCH 33.9 H, MCHC 33.1, RDW Std Deviation 58.9 H, RDW Coeff of Braxton 15.8 H, Plt Count 103 L, MPV 10.0, Immature Gran % (Auto) 0.700, Neut % (Auto) 73.2 H, Lymph % (Auto) 14.1 L, [place] % (Auto) 9.2, Eos % (Auto) 2.4, Baso % (Auto) 0.4, Absolute Neuts (auto) 3.3, Absolute Lymphs (auto) 0.64 L, Nucleated RBC % 0, Sodium 137, Potassium 3.6, Chloride 100, Carbon Dioxide 24.0, Anion Gap 13, BUN 5, Creatinine 0.32 L, Estim Creat Clear Calc 185.66, Est GFR (MDRD) Non-Af 128, BUN/Creatinine Ratio 16.1, Glucose 76, Calcium 7.0 L, Phosphorus 2.7, Magnesium 1.7, Total Bilirubin 1.36 H, AST 788 H, ALT 223 H, Alkaline Phosphatase 176 H, Total Protein 5.5 L, Albumin 3.3 L, Globulin 2.2, Albumin/Globulin Ratio 1.5 07/18/25 06:33: POC Glucose 84 Radiography Diagnostic Testing: Radiology Impression Abdomen/Pelvis CT 07/17/25 11:09 IMPRESSION: 1. Acute on chronic, uncomplicated, interstitial edematous pancreatitis. 2. Cholecystectomy. No biliary duct dilation. 3. Mild liver enlargement. Very severe fatty infiltration. 4. Small volume free fluid in the cul-de-sac is reactive. Small free fluid in the retroperitoneum related to the pancreatitis. Reading Location: [facility] Physical Exam Narrative GENERAL: cooperative but tremulous at rest HEENT: Atraumatic; normocephalic EYES; Anicteric, Normal Conjunctiva NECK; supple, normal thyroid, RESPIRATORY: Diminished to auscultation CARDIOVASCULAR: Regular S1 S2, GI: soft, normoactive bowel sounds, : No Renal angle tenderness; EXTREMITIES: No edema, no clubbing, MUSCULOSKELETAL: no muscle wasting NEURO: Awake; no lateralizing signs. SKIN: No Rash PSYCH; Flat affect Assessment & Plan Assessment/Plan (1) Acute alcoholic pancreatitis: PLAN: Plan Patient is a 50-year-old lady with history of alcohol dependence, prior episodes of pancreatitis who presented with abdominal pain. Patient was found to have elevated lipase level consistent with acute pancreatitis admitted to regular nursing floor for further 1. Acute on chronic pancreatitis ? Patient has been admitted to a monitored bed for symptom management including IV fluids, pain meds as well as antinausea medication.. Patient lipase level markedly elevated on admission greater than 3000 repeat levels ordered in a.m. ? 07/18/2025 patient continues to experience significant symptoms. Will continue with current treatment regimen. Patient started on clear liquids 2. Alcohol withdrawal ? Patient was started on CIWA protocol placed on phenobarb taper. Patient was counseled on the need for cessation. She plans to follow-up with [facility] counseling services after discharge ? 07/18/2025; patient denies being tremulous however she thought she was hearing voices of his son 3. Hypokalemia ? Patient started on potassium replacement repeat labs ordered in a.m. for follow-up ? 07/18/2025; patient potassium up to 3.[address] patient on scheduled potassium 20 mg twice daily 4. Acute alcoholic hepatitis ? Following with serial LFTs in a.m. ? Patient transaminases have worsened we will continue with monitoring 5. Acute hypertensive urgency ? Patient blood pressure markedly elevated on admission her pain may be contributing to the elevated blood pressure did continue with home meds ordered hydralazine as needed for systolic blood pressure greater than 160 ? 07/18/2025; patient blood pressure control not optimal given her significant pain 6. Dyslipidemia ?Patient is on statin therapy, continued at home dose 7. COPD ? Currently not in exacerbation aerosol treatments as needed 8. Diabetes mellitus type II -patient's oral hypoglycemics held. Placed on long acting insulin, Accu-Cheks a.c. and at bedtime and covered with sliding scale insulin 9. GERD ? Patient is on Protonix 40 mg twice daily?continue home 10. Tobacco dependence ? Counseled on cessation, offered nicotine patch for tobacco cravings 11. Depression with anxiety ? Patient is on citalopram bupropion as well as buspirone held buspirone continue with the 12. Severe malnutrition. Related to: inadequate oral intake; As evidenced by: 10% unintentional weight loss x <1 month and PO meeting <50% of estimated nutrition needs x 1 month. Consult placed to dietitian 13. DVT prophylaxis ? On enoxaparin 14. Hypomagnesemia ? Corrected per protocol, repeat mag level ordered in a.m. to assess response to therapy Time spent in the patient's overall evaluation,decision-making process, review of diagnostic data, adjustment of management, discussion with other providers, nursing nursing and ancillary staff involved in patient's care documentation, 50 minutes Charges/Coding Visit Charges Inpatient E&M: 52786 Subs Hosp L3
[2025-07-18 09:12] LABS: Lipase 1128 U/L (13-75)
[2025-07-18] MEDS: buPROPion (XL) 150 MG TABLET.XL PO (09:48)
[2025-07-18] MEDS: Cholecalciferol (VIT D3) 25 MCG TABLET (1,000 UNITS) 50 MCG PO (09:48)
[2025-07-18] MEDS: Metoprolol(XL)Succ 25 MG Tablet PO (09:52)
[2025-07-18] MEDS: Magnesium Chloride 64 MG Delay Rel.Tablet 128 MG PO ×2 (09:53→22:19)
--- NOTE | 2025-07-18 14:28 | CHAPLAIN ---
Type of Pastoral Visit _x__ Initial Visit ___ Follow-up Visit ___ On-call Visit ___ General Patient Visit ___ Spiritual Assessment ___ Family Conference ___ Bereavement ___ Rapid Response ___ Code Blue ___ Other (describe below) Pastoral Care Referral From _x__ Patient ___ Family ___ Nurse ___ Physician ___ Ethanol Quality Leader ___ Design Chief ___ Other (describe below) Sacrament/Intervention _x__ Active listening ___ Anointing ___ Scientology _x__ Bereavement ___ Communion ___ Christen exploration ___ _x__ Life review _x__ Prayer ___ Reconciliation ___ Sacrament of Sick _x__ Supportive presence ___ Wedding ___ Other (describe below) Pastoral Comments patient was sleeping but awakened as this hydro sprayer operator entered room; pt admits to discomfort and inability to sleep; pt states that she could use a prayer and more sleep; as support is offered and questions given to determine needs the patient reveals that her spouse last month; grief support and questioning of need happened at that time; pt has worries about her spouse's children and future difficulties in the relationships and dividing of property; pt does have good support from her quaker and vacuum tester cans; pt welcomes someone to talk with about this matter and asks for prayer;
--- NOTE | 2025-07-18 16:27 | CASEMGMT ---
Social Work Pt has been seen by Ritu Coles who will apply for Medicaid for pt. SW met with pt and provided additional community resources as pt is self pay. SW provided pt with prescription assistance programs, People [employer] People information, [employer], [employer] and [employer] card. Pt appreciative and states no other concerns at this time. PRESTON Buitrago
[2025-07-19] VITALS (13 sets, daily range): BP systolic 94–152; BP diastolic 49–90; PULSE 71–91; RESP 14–18; TEMP 36.1–37.1; O2SAT 86–98; BMI 22.7
[2025-07-19] MEDS: Albuterol 2.5 MG/3 ML VIAL.NEB. INHALATION ×4 (01:20→19:18)
[2025-07-19] MEDS: Budesonide Respules 0.5 MG/2 ML AMPUL.NEB. INHALATION ×2 (06:52→19:19)
[2025-07-19 06:57] LABS: Hematocrit 28.4 % (37-47); Hemoglobin 9.5 g/dL (12.0-15.0); Immature Granulocytes Count 0.020 X10^3/uL (0.0-0.0); Mean Corp Hgb Conc 33.5 g/dL (32-36); Mean Corpuscular Volume 102.2 fL (81-99); Mean Platelet Vol. 9.9 fl (6.2-12.0); NRBC Flagged by Analyzer 0 % (0-5); POSITIVE COUNT YES; Platelet Count 93 K/mm3 (150-450); RBC Distribution Width CV 15.3 % (11.6-14.6); RBC Distribution Width SD 58.1 fl (35.1-43.9); Red Blood Count 2.78 M/mm3 (4.2-5.4); White Blood Count 4.5 K/mm3 (4.4-11.0)
[2025-07-19 07:16] LABS: AST(SGOT) 289 U/L (<=31); Alanine Aminotransfer ALT/SGPT 150 U/L (<=34); Albumin, Serum 3.0 g/dL (3.5-5.0); Alkaline Phosphatase 133 U/L (35-104); Anion Gap 10 (5-15); BUN 3 mg/dL (4-19); BUN/Creat Ratio 6.1 RATIO (10-20); Calcium,Total 7.0 mg/dL (7.6-11.0); Carbon Dioxide 25.2 mmol/L (21.0-32.0); Chloride 98 mmol/L (98-108); Estimated Creatinine Clearance 141.45 ml/min (50-250); Globulin 2.1 g/dL (2.2-4.2); Glucose 93 mg/dL (70-99); Potassium 3.5 mmol/L (3.3-5.1)
[2025-07-19 07:25] LABS: Differential Indicated SCAN CRITERIA MET
[2025-07-19] MEDS: Thiamine Hydrochloride 100 MG Tablet PO (08:19)
--- NOTE | 2025-07-19 09:38 | PCM.PN.HOSP ---
Reason for Visit Chief Complaint: Abdominal pain Subjective Subjective Patient seen admitted some improvement in her pain level. Her transaminases also trending in the right direction. Plan is to advance patient diet to full liquid. Patient remains on phenobarb taper for alcohol withdrawal Objective Data Objective Data Vital Signs: Vital Signs Temp Pulse Resp BP Pulse Ox O2 Del Method O2 Flow Rate 97.0 F L 86 14 108/49 L 94 Nasal Cannula 2 07/19/25 08:10 07/19/25 08:10 07/19/25 08:10 07/19/25 08:10 07/19/25 08:10 07/19/25 08:10 07/19/25 08:10 Oxygen Flow Rate (L/min) 2 Oxygen Delivery Method Nasal Cannula Weight: 60.4 kg Body Mass Index (BMI) 22.7 Intake & Output: Intake and Output for Last 24 Hours 07/17/25 07/18/25 07/19/25 23:59 23:59 23:59 Intake Total 2580 / 2580 4600 / 4600 150 / 150 Output Total 400 / 400 300 / 300 Balance 2180 / 2180 4300 / 4300 150 / 150 Lab / Micro Data 07/19/25 06:24 07/19/25 06:24 Labs: Laboratory Results - last 24 hr 07/18/25 10:54: POC Glucose 109 H 07/18/25 16:37: POC Glucose 108 H 07/18/25 22:21: POC Glucose 104 07/19/25 06:19: POC Glucose 94 07/19/25 06:24: WBC 4.5, RBC 2.78 L, Hgb 9.5 L, Hct 28.4 L, MCV 102.2 H, MCH 34.2 H, MCHC 33.5, RDW Std Deviation 58.1 H, RDW Coeff of Braxton 15.3 H, Plt Count 93 L, MPV 9.9, Immature Gran % (Auto) 0.400, Neut % (Auto) 61.0, Lymph % (Auto) 25.9, [place] % (Auto) 10.3 H, Eos % (Auto) 2.2, Baso % (Auto) 0.2, Absolute Neuts (auto) 2.7, Absolute Lymphs (auto) 1.16, Nucleated RBC % 0, Platelet Estimate SLT DEC, Sodium 134, Potassium 3.5, Chloride 98, Carbon Dioxide 25.2, Anion Gap 10, BUN 3 L, Creatinine 0.42 L, Estim Creat Clear Calc 141.45, Est GFR (MDRD) Non-Af 121, BUN/Creatinine Ratio 6.1 L, Glucose 93, Calcium 7.0 L, Total Bilirubin 1.07, AST 289 H, ALT 150 H, Alkaline Phosphatase 133 H, Total Protein 5.0 L, Albumin 3.0 L, Globulin 2.1 L, Albumin/Globulin Ratio 1.4 Physical Exam Narrative GENERAL: cooperative but tremulous at rest HEENT: Atraumatic; normocephalic EYES; Anicteric, Normal Conjunctiva NECK; supple, normal thyroid, RESPIRATORY: Diminished to auscultation CARDIOVASCULAR: Regular S1 S2, GI: soft, normoactive bowel sounds, : No Renal angle tenderness; EXTREMITIES: No edema, no clubbing, MUSCULOSKELETAL: no muscle wasting NEURO: Awake; no lateralizing signs. SKIN: No Rash PSYCH; Flat affect Assessment & Plan Assessment/Plan (1) Acute alcoholic pancreatitis: PLAN: Plan Patient is a 50-year-old lady with history of alcohol dependence, prior episodes of pancreatitis who presented with abdominal pain. Patient was found to have elevated lipase level consistent with acute pancreatitis admitted to regular nursing floor for further 1. Acute on chronic pancreatitis ? Patient has been admitted to a monitored bed for symptom management including IV fluids, pain meds as well as antinausea medication.. Patient lipase level markedly elevated on admission greater than 3000 repeat levels ordered in a.m. ? 07/18/2025 patient continues to experience significant symptoms. Will continue with current treatment regimen. Patient started on clear liquids ? 07/18/2025Patient seen admitted some improvement in her pain level. Plan is to advance patient diet to full liquid. 2. Alcohol withdrawal ? Patient was started on CIWA protocol placed on phenobarb taper. Patient was counseled on the need for cessation. She plans to follow-up with [facility] after discharge ? 07/18/2025; patient denies being tremulous however she thought she was hearing voices of his son 3. Hypokalemia ? Patient started on potassium replacement repeat labs ordered in a.m. for follow-up ? 07/18/2025; patient potassium up to 3.[address] patient on scheduled potassium 20 mg twice daily 4. Acute alcoholic hepatitis ? Following with serial LFTs in a.m. ? Patient transaminases have worsened we will continue with monitoring ? 07/19/2025; patient transaminases improving we will hold off consulting GI 5. Acute hypertensive urgency ? Patient blood pressure markedly elevated on admission her pain may be contributing to the elevated blood pressure did continue with home meds ordered hydralazine as needed for systolic blood pressure greater than 160 ? 07/18/2025; patient blood pressure control not optimal given her significant pain ? 07/19/2025; patient blood pressure has stabilized 6. Dyslipidemia ?Patient is on statin therapy, continued at home dose 7. COPD ? Currently not in exacerbation aerosol treatments as needed 8. Diabetes mellitus type II -patient's oral hypoglycemics held. Placed on long acting insulin, Accu-Cheks a.c. and at bedtime and covered with sliding scale insulin 9. GERD ? Patient is on Protonix 40 mg twice daily?continue home 10. Tobacco dependence ? Counseled on cessation, offered nicotine patch for tobacco cravings 11. Depression with anxiety ? Patient is on citalopram bupropion as well as buspirone held buspirone continue with the 12. Severe malnutrition. Related to: inadequate oral intake; As evidenced by: 10% unintentional weight loss x <1 month and PO meeting <50% of estimated nutrition needs x 1 month. Consult placed to dietitian 13. Anemia ? Secondary to chronic disorder monitoring H&H and transfuse if patient becomes symptomatic or hemoglobin falls below 7 14. Hypomagnesemia ? Corrected per protocol, repeat mag level ordered in a.m. to assess response to therapy 15. Thrombocytopenia ? Secondary to patient chronic alcohol use patient was on enoxaparin discontinued given the drop in the platelet count 16. DVT prophylaxis ? Discontinue enoxaparin given drop in platelet Time spent in the patient's overall evaluation,decision-making process, review of diagnostic data, adjustment of management, discussion with other providers, nursing nursing and ancillary staff involved in patient's care documentation, 40 minutes Charges/Coding Visit Charges Inpatient E&M: 38152 Subs Hosp L2
[2025-07-19] MEDS: buPROPion (XL) 150 MG TABLET.XL PO (10:30)
[2025-07-19] MEDS: Cholecalciferol (VIT D3) 25 MCG TABLET (1,000 UNITS) 50 MCG PO (10:30)
[2025-07-19] MEDS: Magnesium Chloride 64 MG Delay Rel.Tablet 128 MG PO ×2 (10:31→22:03)
[2025-07-19] MEDS: Metoprolol(XL)Succ 25 MG Tablet PO (10:34)
[2025-07-19] MEDS: 0.9% Saline Lock 10 ML Syringe IV (12:46)
--- NOTE | 2025-07-19 17:00 | CASEMGMT ---
Social Work Reason for SW intervention: Alcohol Abuse Chart reviewed and noted patient was in the [facility] program in April 2025. Substance of choice is alcohol. Patient not currently enrolled into RAMP this admission. Met with patient alone, introducing to self and social work role. Patient receptive and willing to speak with manager social responsibility. -Patient reports was in the RAMP program in April and did well after discharge, but due to stressors with patient's 's health and subsequent passing at the inpatient hospice unit on 06/22/25, the patient relapsed. -Reports with the passing of her , and poor coping skills reverted back to drinking. -Reports was drinking at least, sometimes more, 1/5 of vodka a day. -Reports all alcohol has been removed from the home. -Reports would like to get sober again, and would like to do outpatient at [facility], that had planned to call and get an appointment but then had an emergency which resulted in this hospitalization. -Does not want to go to inpatient of any sort, reporting to have 2 dogs to take care of and still working through her 's passing, and the things which go along with the of a loved one. -Patient reports plan to go to [facility] or to call at discharge. -Patient talked about family dynamics with stepchildren and even with patient's own children who are ages 27, 24, and 21. -Patient reminisced about , memories made in the last year, and of their marriage over the last 5 years (together for 8 years), including the 29 year age difference in this marriage. Broached grief and feelings which may come along with this. Patient reports to have grief information form hospice. Broached aftercare fo substance use. Patient receptive to AA information and plans to make arrangements herself for outpatient at [facility] Emotional support and supportive encouragement provided to patient regarding grief, loss, coping, and movement towards sobriety. Returned to patient's room, ans patient's mother present. Patient okay with manager social responsibility provided resources and talking openly with mother present. Provided patient with: Bereavement support information can access through hospice [facility] resources AA list 24 hour crisis line Patient thankful for information shared and provided. Denies any other needs or concerns wit home going. Social work does remain available should needs arise. -KARINA Lopes
[2025-07-19] MEDS: hydrOXYzine PAM 25 MG Capsule 50 MG PO (22:12)
[2025-07-20 01:18] VITALS: PULSE 75; RESP 16
[2025-07-20] MEDS: Albuterol 2.5 MG/3 ML VIAL.NEB. INHALATION ×3 (01:18→13:04)
[2025-07-20 02:08] VITALS: BMI 24.1
[2025-07-20 03:30] VITALS: O2SAT 83
[2025-07-20 03:33] VITALS: BP 116/69; PULSE 91; RESP 16; TEMP 37.1; O2SAT 95
[2025-07-20] MEDS: hydrOXYzine PAM 25 MG Capsule 50 MG PO (06:26)
[2025-07-20 06:43] LABS: Hematocrit 29.2 % (37-47); Hemoglobin 9.6 g/dL (12.0-15.0); Immature Granulocytes Count 0.010 X10^3/uL (0.0-0.0); Mean Corp Hgb Conc 32.9 g/dL (32-36); Mean Corpuscular Volume 102.8 fL (81-99); Mean Platelet Vol. 10.9 fl (6.2-12.0); NRBC Flagged by Analyzer 0 % (0-5); Platelet Count 114 K/mm3 (150-450); RBC Distribution Width CV 15.2 % (11.6-14.6); RBC Distribution Width SD 57.6 fl (35.1-43.9); Red Blood Count 2.84 M/mm3 (4.2-5.4); White Blood Count 4.3 K/mm3 (4.4-11.0)
[2025-07-20] MEDS: Budesonide Respules 0.5 MG/2 ML AMPUL.NEB. INHALATION (07:26)
[2025-07-20 07:27] VITALS: PULSE 78; RESP 16; O2SAT 94
--- NOTE | 2025-07-20 07:31 | PCM.PN.HOSP ---
Reason for Visit Chief Complaint: Abdominal pain Subjective Subjective Patient seen overall pain control improving. Plan is for patient to be advanced to regular diet prior to being assessed for possible discharge. Consult was also placed to [facility] regarding her continuous alcohol use Objective Data Objective Data Vital Signs: Vital Signs Temp Pulse Resp BP Pulse Ox O2 Del Method O2 Flow Rate 98.7 F 80 16 116/69 94 Nasal Cannula 2 07/20/25 03:33 07/20/25 07:27 07/20/25 07:27 07/20/25 03:33 07/20/25 07:27 07/20/25 07:27 07/20/25 07:27 Oxygen Flow Rate (L/min) 2 Oxygen Delivery Method Nasal Cannula Weight: 64.1 kg Body Mass Index (BMI) 24.1 Intake & Output: Intake and Output for Last 24 Hours 07/18/25 07/19/25 07/20/25 23:59 23:59 23:59 Intake Total 4600 / 4600 770 / 970 400 / 400 Output Total 300 / 300 800 / 800 Balance 4300 / 4300 -30 / 170 400 / 400 Lab / Micro Data 07/20/25 06:02 07/20/25 06:02 Labs: Laboratory Results - last 24 hr 07/19/25 06:24: Platelet Estimate SLT 07/19/25 11:58: POC Glucose 140 H 07/19/25 15:56: POC Glucose 91 07/19/25 22:23: POC Glucose 121 H 07/20/25 06:02: WBC 4.3 L, RBC 2.84 L, Hgb 9.6 L, Hct 29.2 L, MCV 102.8 H, MCH 33.8 H, MCHC 32.9, RDW Std Deviation 57.6 H, RDW Coeff of Braxton 15.2 H, Plt Count 114 L, MPV 10.9, Immature Gran % (Auto) 0.200, Neut % (Auto) 66.7, Lymph % (Auto) 19.5, [place] % (Auto) 11.8 H, Eos % (Auto) 1.6, Baso % (Auto) 0.2, Absolute Neuts (auto) 2.8, Absolute Lymphs (auto) 0.83, Nucleated RBC % 0 07/20/25 06:17: POC Glucose 111 H Physical Exam Narrative GENERAL: cooperative HEENT: Atraumatic; normocephalic EYES; Anicteric, Normal Conjunctiva NECK; supple, normal thyroid, RESPIRATORY: Diminished to auscultation CARDIOVASCULAR: Regular S1 S2, GI: soft, normoactive bowel sounds, : No Renal angle tenderness; EXTREMITIES: No edema, no clubbing, MUSCULOSKELETAL: no muscle wasting NEURO: Awake; no lateralizing signs. SKIN: No Rash PSYCH; Flat affect Assessment & Plan Assessment/Plan (1) Acute alcoholic pancreatitis: PLAN: Plan Patient is a 50-year-old lady with history of alcohol dependence, prior episodes of pancreatitis who presented with abdominal pain. Patient was found to have elevated lipase level consistent with acute pancreatitis admitted to regular nursing floor for further 1. Acute on chronic pancreatitis ? Patient has been admitted to a monitored bed for symptom management including IV fluids, pain meds as well as antinausea medication.. Patient lipase level markedly elevated on admission greater than 3000 repeat levels ordered in a.m. ? 07/18/2025 patient continues to experience significant symptoms. Will continue with current treatment regimen. Patient started on clear liquids ? 07/19/2025Patient seen admitted some improvement in her pain level. Plan is to advance patient diet to full liquid. ? 07/20/2025; patient seen pain continues to improve patient will be advanced to regular diet and assess for discharge 2. Alcohol withdrawal ? Patient was started on CIWA protocol placed on phenobarb taper. Patient was counseled on the need for cessation. She plans to follow-up with [facility] after discharge ? 07/18/2025; patient denies being tremulous however she thought she was hearing voices of his son ? 07/20/2025; consult was placed to [facility] 3. Hypokalemia ? Patient started on potassium replacement repeat labs ordered in a.m. for follow-up ? 07/18/2025; patient potassium up to 3.[address] patient on scheduled potassium 20 mg twice daily 4. Acute alcoholic hepatitis ? Following with serial LFTs in a.m. ? Patient transaminases have worsened we will continue with monitoring ? 07/19/2025; patient transaminases improving we will hold off consulting GI 5. Acute hypertensive urgency ? Patient blood pressure markedly elevated on admission her pain may be contributing to the elevated blood pressure did continue with home meds ordered hydralazine as needed for systolic blood pressure greater than 160 ? 07/18/2025; patient blood pressure control not optimal given her significant pain ? 07/19/2025; patient blood pressure has stabilized 6. Dyslipidemia ?Patient is on statin therapy, continued at home dose 7. COPD ? Currently not in exacerbation aerosol treatments as needed 8. Diabetes mellitus type II -patient's oral hypoglycemics held. Placed on long acting insulin, Accu-Cheks a.c. and at bedtime and covered with sliding scale insulin 9. GERD ? Patient is on Protonix 40 mg twice daily?continue home 10. Tobacco dependence ? Counseled on cessation, offered nicotine patch for tobacco cravings 11. Depression with anxiety ? Patient is on citalopram bupropion as well as buspirone held buspirone continue with the 12. Severe malnutrition. Related to: inadequate oral intake; As evidenced by: 10% unintentional weight loss x <1 month and PO meeting <50% of estimated nutrition needs x 1 month. Consult placed to dietitian 13. Anemia ? Secondary to chronic disorder monitoring H&H and transfuse if patient becomes symptomatic or hemoglobin falls below 7 14. Hypomagnesemia ? Corrected per protocol, repeat mag level ordered in a.m. to assess response to therapy 15. Thrombocytopenia ? Secondary to patient chronic alcohol use patient was on enoxaparin discontinued given the drop in the platelet count 16. DVT prophylaxis ? Discontinue enoxaparin given drop in platelet Time spent in the patient's overall evaluation,decision-making process, review of diagnostic data, adjustment of management, discussion with other providers, nursing nursing and ancillary staff involved in patient's care documentation, 40 minutes Charges/Coding Visit Charges Inpatient E&M: 01251 Subs Hosp L2
[2025-07-20 07:37] LABS: AST(SGOT) 136 U/L (<=31); Alanine Aminotransfer ALT/SGPT 114 U/L (<=34); Albumin, Serum 3.0 g/dL (3.5-5.0); Alkaline Phosphatase 134 U/L (35-104); Anion Gap 10 (5-15); BUN 4 mg/dL (4-19); BUN/Creat Ratio 10.1 RATIO (10-20); Calcium,Total 7.6 mg/dL (7.6-11.0); Carbon Dioxide 27.0 mmol/L (21.0-32.0); Chloride 103 mmol/L (98-108); Estimated Creatinine Clearance 148.53 ml/min (50-250); Globulin 2.1 g/dL (2.2-4.2); Glucose 107 mg/dL (70-99); Potassium 3.6 mmol/L (3.3-5.1)
[2025-07-20] MEDS: buPROPion (XL) 150 MG TABLET.XL PO (09:33)
[2025-07-20] MEDS: Magnesium Chloride 64 MG Delay Rel.Tablet 128 MG PO (09:33)
[2025-07-20] MEDS: Thiamine Hydrochloride 100 MG Tablet PO (09:33)
[2025-07-20] MEDS: Cholecalciferol (VIT D3) 25 MCG TABLET (1,000 UNITS) 50 MCG PO (09:34)
[2025-07-20 09:42] VITALS: PULSE 87
[2025-07-20] MEDS: Metoprolol(XL)Succ 25 MG Tablet PO (09:42)
[2025-07-20 13:05] VITALS: PULSE 79; RESP 16
--- NOTE | 2025-07-20 14:42 | DS.PCM_ITS ---
Providers Date of Admission: 07/17/25 Date of Discharge: 07/20/25 Primary Care Physician: Abisai Haley MD Reason For Visit: ACUTE PANCREATITIS, ALCOHOLIC INTOXICATION Diagnosis Discharge Diagnosis (1) Acute alcoholic pancreatitis: Status: Acute Code(s): K85.20 - Alcohol induced acute pancreatitis without necrosis or infection Plan Patient is a 50-year-old lady with history of alcohol dependence, prior episodes of pancreatitis who presented with abdominal pain. Patient was found to have elevated lipase level consistent with acute pancreatitis admitted to regular nursing floor for further 1. Acute on chronic pancreatitis ? Patient has been admitted to a monitored bed for symptom management including IV fluids, pain meds as well as antinausea medication.. Patient lipase level markedly elevated on admission greater than 3000 repeat levels ordered in a.m. ? 07/18/2025 patient continues to experience significant symptoms. Will continue with current treatment regimen. Patient started on clear liquids ? 07/19/2025Patient seen admitted some improvement in her pain level. Plan is to advance patient diet to full liquid. ? 07/20/2025; patient seen pain continues to improve patient will be advanced to regular diet and assess for discharge - - Tolerated oral diet, discharged on PPI 2. Alcohol withdrawal ? Patient was started on CIWA protocol placed on phenobarb taper. Patient was counseled on the need for cessation. She plans to follow-up with [facility] after discharge ? 07/18/2025; patient denies being tremulous however she thought she was hearing voices of his son ? 07/20/2025; consult was placed to [facility] 3. Hypokalemia ? Patient started on potassium replacement repeat labs ordered in a.m. for follow-up ? 07/18/2025; patient potassium up to 3.[address] patient on scheduled potassium 20 mg twice daily 4. Acute alcoholic hepatitis ? Following with serial LFTs in a.m. ? Patient transaminases have worsened we will continue with monitoring ? 07/19/2025; patient transaminases improving we will hold off consulting GI 5. Acute hypertensive urgency ? Patient blood pressure markedly elevated on admission her pain may be contributing to the elevated blood pressure did continue with home meds ordered hydralazine as needed for systolic blood pressure greater than 160 ? 07/18/2025; patient blood pressure control not optimal given her significant pain ? 07/19/2025; patient blood pressure has stabilized 6. Dyslipidemia ?Patient is on statin therapy, continued at home dose 7. COPD ? Currently not in exacerbation aerosol treatments as needed 8. Diabetes mellitus type II -patient's oral hypoglycemics held. Placed on long acting insulin, Accu-Cheks a.c. and at bedtime and covered with sliding scale insulin 9. GERD ? Patient is on Protonix 40 mg twice daily?continue home 10. Tobacco dependence ? Counseled on cessation, offered nicotine patch for tobacco cravings 11. Depression with anxiety ? Patient is on citalopram bupropion as well as buspirone held buspirone continue with the 12. Severe malnutrition. Related to: inadequate oral intake; As evidenced by: 10% unintentional weight loss x <1 month and PO meeting <50% of estimated nutrition needs x 1 month. Consult placed to dietitian 13. Anemia ? Secondary to chronic disorder monitoring H&H and transfuse if patient becomes symptomatic or hemoglobin falls below 7 14. Hypomagnesemia ? Corrected per protocol, repeat mag level ordered in a.m. to assess response to therapy 15. Thrombocytopenia ? Secondary to patient chronic alcohol use patient was on enoxaparin discontinued given the drop in the platelet count 16. DVT prophylaxis ? Discontinue enoxaparin given drop in platelet Time spent in the patient's overall evaluation,decision-making process, review of diagnostic data, adjustment of management, discussion with other providers, nursing nursing and ancillary staff involved in patient's care documentation, 40 minutes Medications at Discharge Home Medications metformin 500 mg tablet 500 ea PO BID DIABETES 10/31/22 aspirin 81 mg chewable tablet 81 mg PO DAILY@0800 #30 tabs 11/19/22 bupropion HCl 150 mg 24 hr tablet, extended release 150 mg PO DAILY 01/21/23 montelukast 10 mg tablet (Singulair) 10 mg PO DAILY 04/09/23 pantoprazole 40 mg tablet,delayed release 40 mg PO BID 05/04/23 cholecalciferol (vitamin D3) 50 mcg (2,000 unit) capsule 50 mcg PO DAILY 08/25/23 magnesium 250 mg tablet 250 mg PO DAILY 08/25/23 albuterol sulfate 90 mcg/actuation aerosol inhaler 2 puff inhalation Q6H PRN shortness of breath or wheezing #8.5 grams 04/27/24 empagliflozin 25 mg tablet (Jardiance) 25 mg PO DAILY 11/12/24 metoprolol succinate 25 mg tablet,extended release 24 hr 25 mg PO DAILY 11/12/24 amlodipine 5 mg tablet 5 mg PO DAILY 04/04/25 buspirone 5 mg tablet 5 mg PO TID PRN anxiety 04/04/25 hydroxyzine HCl 10 mg tablet 10 mg PO TID PRN PRN anxiety 04/04/25 levocetirizine 5 mg tablet 5 mg PO DAILY 04/11/25 lisinopril 40 mg tablet 40 mg PO DAILY 04/11/25 budesonide-formoterol HFA 160 mcg-4.5 mcg/actuation aerosol inhaler 2 puff inhalation BID SOB 04/26/25 glimepiride 4 mg tablet 4 mg PO DAILY #30 tabs 05/06/25 atorvastatin 40 mg tablet 40 mg PO QHS 07/17/25 fluoxetine 40 mg capsule 40 mg PO DAILY 07/17/25 ondansetron 4 mg disintegrating tablet 4 mg PO Q6H PRN nausea and vomiting #30 tabs 07/20/25 oxycodone 5 mg tablet 5 mg PO Q4H PRN PRN Pain Score 4-10 5 days #20 tabs 07/20/25 Physical Exam Narrative GENERAL: cooperative HEENT: Atraumatic; normocephalic EYES; Anicteric, Normal Conjunctiva NECK; supple, normal thyroid, RESPIRATORY: Diminished to auscultation CARDIOVASCULAR: Regular S1 S2, GI: soft, normoactive bowel sounds, : No Renal angle tenderness; EXTREMITIES: No edema, no clubbing, MUSCULOSKELETAL: no muscle wasting NEURO: Awake; no lateralizing signs. SKIN: No Rash PSYCH; Flat affect Weight / BMI Weight Weight: 64.1 kg Body Mass Index (BMI) 24.1 ABG / Lab / Microbiology Data 07/20/25 06:02 07/20/25 06:02 Laboratory: Laboratory Results - last 24 hr 07/19/25 15:56: POC Glucose 91 07/19/25 22:23: POC Glucose 121 H 07/20/25 06:02: WBC 4.3 L, RBC 2.84 L, Hgb 9.6 L, Hct 29.2 L, MCV 102.8 H, MCH 33.8 H, MCHC 32.9, RDW Std Deviation 57.6 H, RDW Coeff of Braxton 15.2 H, Plt Count 114 L, MPV 10.9, Immature Gran % (Auto) 0.200, Neut % (Auto) 66.7, Lymph % (Auto) 19.5, [place] % (Auto) 11.8 H, Eos % (Auto) 1.6, Baso % (Auto) 0.2, Absolute Neuts (auto) 2.8, Absolute Lymphs (auto) 0.83, Nucleated RBC % 0, Sodium 140, Potassium 3.6, Chloride 103, Carbon Dioxide 27.0, Anion Gap 10, BUN 4, C reatinine 0.40 L, Estim Creat Clear Calc 148.53, Est GFR (MDRD) Non-Af 122, BUN/Creatinine Ratio 10.1, Glucose 107 H, Calcium 7.6, Total Bilirubin 0.86, AST 136 H, ALT 114 H, Alkaline Phosphatase 134 H, Total Protein 5.1 L, Albumin 3.0 L , Globulin 2.1 L, Albumin/Globulin Ratio 1.4 07/20/25 06:17: POC Glucose 111 H 07/20/25 11:33: POC Glucose 217 H D/C Instructions Discharge Activity: Return to Normal Activity Call your doctor if you observe: Fever of 101 or Higher, Shortness of breath, Fainting spells and Chest pain DC O2, CPAP, BIPAP Needs Home O2 Discharge instructions: No Meaningful Use Info Meaningful Use Meaningful Use Diagnoses (Choose all that apply): None applicable Discharge Plan Admission Admit Date/Time: 07/17/25 12:56 Attending Provider: Canelo Myers Primary Care Provider: Abisai Haley Discharge Orders/Prescriptions Prescriptions: New oxycodone 5 mg Tablet 5 mg PO Q4H PRN PRN (Reason: Pain Score 4-10) 5 Days Qty: 20 0RF ondansetron 4 mg tablet,disintegrating 4 mg PO Q6H PRN (Reason: nausea and vomiting) Qty: 30 0RF Continued metformin 500 mg tablet 500 ea PO BID magnesium 250 mg tablet 250 mg PO DAILY cholecalciferol (vitamin D3) 50 mcg (2,000 unit) capsule 50 mcg PO DAILY albuterol sulfate 90 mcg/actuation HFA aerosol inhaler 2 puff inhalation Q6H PRN (Reason: shortness of breath or wheezing) Qty: 8.5 0RF aspirin 81 mg Tablet,Chewable 81 mg PO DAILY@0800 Qty: 30 0RF bupropion HCl 150 mg tablet extended release 24 hr 150 mg PO DAILY Patient Comments: take 1 tablet by mouth once daily montelukast [Singulair] 10 mg Tablet 10 mg PO DAILY pantoprazole 40 mg tablet,delayed release (DR/EC) 40 mg PO BID lisinopril 40 mg tablet 40 mg PO DAILY levocetirizine 5 mg tablet 5 mg PO DAILY fluoxetine 40 mg capsule 40 mg PO DAILY atorvastatin 40 mg tablet 40 mg PO QHS metoprolol succinate 25 mg tablet extended release 24 hr 25 mg PO DAILY Jardiance 25 mg tablet 25 mg PO DAILY buspirone 5 mg tablet 5 mg PO TID PRN (Reason: anxiety) amlodipine 5 mg tablet 5 mg PO DAILY hydroxyzine HCl 10 mg tablet 10 mg PO TID PRN PRN (Reason: anxiety) budesonide-formoterol 160-4.5 mcg/actuation HFA aerosol inhaler 2 puff INHALATION BID glimepiride 4 mg tablet 4 mg PO DAILY Qty: 30 0RF Referrals / Follow Up: Abisai Haley MD [Primary Care Provider] - Within 2 Weeks Disposition Disposition (needs filled in before D/C Order can be placed): Home, Self Care Charges/Coding Visit Charges Inpatient E&M: 05284 Disch Hosp >30min
[2025-07-20] MEDS: 0.9% Saline Lock 10 ML Syringe IV (15:15)
== END 2025-07-20 15:41 | disposition home or self-care (01) | DRG 438 ==
LOC: ED 12:55 → MS3 13:17
PROVIDERS: Admitting Provider Internal Medicine; Emergency Provider Emergency Medicine; PCP Family Medicine; Visit Provider Internal Medicine
DX: K86.0 Alcohol-induced chronic pancreatitis (principal); E43 Unspecified severe protein-calorie malnutrition; F10.239 Alcohol dependence with withdrawal, unspecified; E11.9 Type 2 diabetes mellitus without complications; K70.10 Alcoholic hepatitis without ascites; J44.9 Chronic obstructive pulmonary disease, unspecified; I16.0 Hypertensive urgency; F32.A Depression, unspecified; D63.8 Anemia in other chronic diseases classified elsewhere; D69.6 Thrombocytopenia, unspecified; E78.5 Hyperlipidemia, unspecified; K21.9 Gastro-esophageal reflux disease without esophagitis; F17.200 Nicotine dependence, unspecified, uncomplicated; E87.6 Hypokalemia; I10 Essential (primary) hypertension; I25.2 Old myocardial infarction; G47.30 Sleep apnea, unspecified; F41.9 Anxiety disorder, unspecified; E83.42 Hypomagnesemia; Z79.82 Long term (current) use of aspirin; Z79.84 Long term (current) use of oral hypoglycemic drugs; Z79.51 Long term (current) use of inhaled steroids; Z90.49 Acquired absence of other specified parts of digestive tract; Z68.20 Body mass index [BMI] 20.0-20.9, adult
CPT/HCPCS: 36415; 74177; 80053; 81001; 82077; 82150; 82962; 83690; 83735; 84100; 84703; 85025; 85610; 94640; 94668; 97802; 99283; 99406; Q9967; A4216; J2405

== ENCOUNTER 2025-08-12 08:19 | Inpatient (IN) | payer SELFPAY ==
[2025-08-12] VITALS (20 sets, daily range): BP systolic 127–180; BP diastolic 70–91; PULSE 64–130; RESP 14–23; TEMP 36.4–37.1; O2SAT 90–100; BMI 20.2; BMI 19.4
--- NOTE | 2025-08-12 08:36 | ED.VIS.GI ---
HPI HPI - GI History of Present Illness Chief Complaint: Alt LOC Informant: patient Narrative Narrative: 50-year-old female presenting with continuous vomiting over the past 24 hours. She states this started with a sore throat, that became worse and she has been having some gagging, as well as vomiting and lots of nausea that she thinks is causing the majority of the vomiting, not necessarily the gagging although that is contributing. She denies any significant cough but she has felt a little short of breath when ambulating. No abdominal pain except for some soreness in her upper abdomen that she feels like is muscular from all the vomiting which came later. No hematemesis. No diarrhea. Never bright red blood per rectum or melena. No fevers or chills. No known sick contacts. [facility] Medical History Admitted to alcohol detoxification center Pancreatitis Hypokalemia Nausea & vomiting Intractable abdominal pain Strain of left foot Plantar fasciitis of left foot Acute otitis media, right Contact with or exposure to other viral diseases URI (upper respiratory infection) Alcohol abuse GERD (gastroesophageal reflux disease) CPAP (continuous positive airway pressure) dependence Smoker COPD (chronic obstructive pulmonary disease) Myocardial infarct Seizures History of left heart catheterization (LHC) (~11/19/22) Sleep apnea Pancreatitis Acute lumbar myofascial strain Strain of left hip Depression Anxiety Diabetes HTN (hypertension) Type 2 diabetes mellitus Home Medications ?Medication ?Instructions ?Recorded ?Last Taken ?Type metformin 500 mg tablet 500 ea PO BID DIABETES 10/31/22 08/11/25 History aspirin 81 mg chewable tablet 81 mg PO DAILY@0800 #30 tabs 11/19/22 08/11/25 Rx bupropion HCl 150 mg 24 hr tablet, 150 mg PO DAILY 01/21/23 08/11/25 History extended release montelukast 10 mg tablet 10 mg PO DAILY 04/09/23 08/11/25 History (Singulair) pantoprazole 40 mg tablet,delayed 40 mg PO BID 05/04/23 08/11/25 History release cholecalciferol (vitamin D3) 50 50 mcg PO DAILY 08/25/23 08/11/25 History mcg (2,000 unit) capsule albuterol sulfate 90 mcg/actuation 2 puff inhalation Q6H PRN 04/27/24 08/12/25 Rx aerosol inhaler shortness of breath or wheezing #8.5 grams empagliflozin 25 mg tablet 25 mg PO DAILY 11/12/24 08/11/25 History (Jardiance) metoprolol succinate 25 mg 25 mg PO DAILY 11/12/24 08/11/25 History tablet,extended release 24 hr amlodipine 5 mg tablet 5 mg PO DAILY 04/04/25 08/11/25 History buspirone 5 mg tablet 5 mg PO TID PRN anxiety 04/04/25 08/11/25 History hydroxyzine HCl 10 mg tablet 10 mg PO TID PRN PRN anxiety 04/04/25 Unknown History levocetirizine 5 mg tablet 5 mg PO DAILY 04/11/25 08/11/25 History lisinopril 40 mg tablet 40 mg PO DAILY 04/11/25 08/11/25 History budesonide-formoterol HFA 160 2 puff inhalation BID SOB 04/26/25 08/11/25 History mcg-4.5 mcg/actuation aerosol inhaler glimepiride 4 mg tablet 4 mg PO DAILY #30 tabs 05/06/25 08/11/25 Rx atorvastatin 40 mg tablet 40 mg PO QHS 07/17/25 08/11/25 History fluoxetine 40 mg capsule 40 mg PO DAILY 07/17/25 08/11/25 History lorazepam 1 mg tablet 1 mg PO BID 08/12/25 08/11/25 History naltrexone 50 mg tablet 50 mg PO DAILY 08/12/25 08/11/25 History Allergy/AdvReac Type Severity Reaction Status Date / Time No Known Allergies Allergy Verified 08/12/25 08:21 Family History Grandfather CVA (cerebral vascular accident) Diabetes Mother Cancer Father Hypertension Grandmother Hypertension Diabetes Surgical History History of cholecystectomy H/O tooth extraction plantar fasciitis release Social History household members: spouse and children housing: house pets and animals: Yes Smoking Status: Light Smoker (<10/day) alcohol intake: current alcohol intake frequency: 3 or more drinks per day Alcohol type: hard liquor details: At least 1/5 vodka daily, recently increased EtOH intake. substance use type: does not use ROS ROS ED Constitutional Constitutional ED: Reports anorexia, fatigue, malaise and weight loss; Denies chills or fever(s) Eyes Eyes: Denies change in vision or diplopia ENT ENT ED: Reports sore throat; Denies ear pain or rhinorrhea Cardiovascular Cardiovascular: Denies chest pain or palpitations Respiratory/Chest Respiratory/Chest: Reports dyspnea on exertion; Denies cough Gastrointestinal Gastrointestinal: Reports abdominal pain, nausea and vomiting; Denies diarrhea, hematemesis, hematochezia or melena Genitourinary Genitourinary ED: Denies dysuria or hematuria Musculoskeletal Musculoskeletal: Denies back pain or neck pain Integumentary Denies abscess or rash Neurologic Neurologic: Denies headache(s), paresthesias or weakness Psychiatric Psychiatric: Denies suicidal thoughts EXAM Physical Exam Const Vital Signs: 08/12/25 08:19 08/12/25 10:19 08/12/25 12:00 Temperature 97.9 F Temperature Source Oral Pulse Rate 130 H 64 120 H Respiratory Rate 18 18 18 Blood Pressure 129/85 H 127/78 H 156/70 H Blood Pressure Mean 99 94 98 Pulse Ox 92 98 92 Oxygen Delivery Method Room Air Room Air Room Air Oxygen Flow Rate (L/min) 08/12/25 12:42 08/12/25 12:50 08/12/25 12:51 Temperature 98.3 F Temperature Source Pulse Rate 118 H 115 H 115 H Respiratory Rate 14 16 17 Blood Pressure 161/85 H Blood Pressure Mean 110 Pulse Ox 92 90 95 Oxygen Delivery Method Room Air Nasal Cannula Oxygen Flow Rate (L/min) 2 Positive well nourished and well developed General Appearance ED: well developed and NAD HEENT Reports moist mucous membranes HEENT Narrative: Diffuse posterior oropharyngeal and soft palatal erythema along with what appears to be mild uvulitis. There is no asymmetry or tonsillar exudates/edema. No trismus. Tongue is normal. Normal voice, no distress, no stridor. normocephalic and atraumatic Eyes PERRL and EOMs intact bilaterally Neck full ROM, no lymphadenopathy and supple Resp normal respiratory effort and clear to auscultation bilaterally Cardio regular rate, regular rhythm and no murmurs GI non-distended GI Narrative: Tender in epigastrium, patient thinks it is a muscle soreness. No guarding or rebound or other areas of tenderness. Auscultation: normoactive bowel sounds Palpation: soft Back/Spine no CVA tenderness General Back: other FROM Extremity normal to inspection General Extremety ED: Negative for edema, pulses abnormal or tenderness General Extremity: Negative for edema or pulses abnormal Neuro oriented x3, CN's II-XII intact bilaterally and no sensory deficits noted Sensorium / Orientation: awake and alert Motor Exam: strength 5/5 throughout Skin no rashes or lesions noted and no wounds MDM MDM MDM Narrative Medical decision making narrative: Labs concerning for LUI and acute pancreatitis. Her liver enzymes are elevated as well, but her total bilirubin is normal suggesting this is not biliary obstruction that is causing this. I reviewed some old ER/hospital records, 3 weeks ago she was admitted for alcoholic pancreatitis. Asked her about her alcohol use. She states since then, she has gotten into [facility] for outpatient rehab, and she has stopped drinking, her last drink was the week before last. Here after Zofran and Reglan she still is having some occasional vomiting feeling very nauseated. Her posterior pharynx is very erythematous, and now my suspicion is that instead of the primary cause of her vomiting, it is probably secondary to much of it. She was given IV fluids, her chloride is down at 73, and her bicarb low at 17, contributing to her anion gap of 48. Therefore she may have alcoholic ketoacidosis as well. I did an ABG first, and interestingly it is not even showing an acidosis, rather it is showing what appears to be an acute respiratory alkalosis. Her lactic and back normal, and her ketones returned extremely high, suggesting maybe she has a mixed respiratory alkalosis and metabolic acidosis and could still very well be an AKA. Her history is consistent with this, when I talked her further she states that when she was drinking alcohol, she was drinking very heavily, and not eating much and she has barely eaten anything in the last 1-2 weeks and she stopped drinking alcohol, she is basically just drinking fluids. 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 However, when I spoke with the patient about all of this, she states this does not feel like the pancreatitis that she has had in the past, so I thought better to obtain the CT to see if it is consistent with acute pancreatitis or not. This was done, I reviewed the images and the report which I agree with and it is consistent with acute pancreatitis and there is no evidence of a pseudocyst or other complication at this time or other acute abnormality. Alcoholic ketoacidosis would explain her vomiting and why she feels different than when she had acute pancreatitis that was the main cause of her vomiting before. She is a type II diabetic and although type II DKA is in the differential, I think that is less likely here. Her blood sugar was 300 we will continue to monitor that and admit her to the hospital discussed with hospitalist. Dr. Tucker evaluated the patient in ED, and thinks that this is more likely to be DKA rather than AKA, and request that we discontinue the D5 half-normal saline and instead give 2 L of normal saline, and he will admit to ICU and begin insulin drip after the IV fluids. History & Record Review Additional record(s) reviewed:: Prior inpatient record Lab Data Attestation: I reviewed the patient's lab results. Labs: Laboratory Results - last 24 hr 08/12/25 08/12/25 08:32 10:47 WBC 11.8 H RBC 4.05 L Hgb 14.1 Hct 41.3 MCV 102.0 H MCH 34.8 H MCHC 34.1 RDW Std Deviation 50.9 H RDW Coeff of Braxton 13.6 Plt Count 181 MPV 10.1 Neut % (Auto) Not Reportable Absolute Neuts (auto) 10.3 H Absolute Lymphs (auto) 1.18 Total Counted 100 Neutrophils % (Manual) 87 H Lymphocytes % (Manual) 10 L Monocytes % (Manual) 3 Platelet Estimate ADEQUATE RBC Morphology NORM C+C Sodium 139 Potassium 3.1 L Chloride 73 L* Carbon Dioxide 17.4 L Anion Gap 48 H BUN 20 H Creatinine 1.82 H Est GFR (MDRD) Non-Af 34 L BUN/Creatinine Ratio 10.8 Glucose 300 H Lactic Acid 1.7 Calcium 9.2 Total Bilirubin 1.22 AST 408 H ALT 108 H Alkaline Phosphatase 135 H Total Protein 8.3 Albumin 4.6 Globulin 3.6 Albumin/Globulin Ratio 1.3 Lipase 1130 H b-Hydroxybutyric mmol/L 14.0 H Serum , Qual NEGATIVE ABG Data ABG results: ABG 08/12/25 08/12/25 10:58 12:45 Specimen Type ART GELACIO Sample Site Not entered Not entered pH 7.56 H Bicarbonate Actual 22.2 Total CO2 23 Base Excess 0 O2 Saturation 95 ABG pCO2 24.6 L ABG pO2 63 L VBG pH 7.49 H VBG pO2 52 H VBG HCO3 25 VBG Total CO2 26 VBG O2 Sat (Calc) 90 H VBG Base Excess 2 POC Mix VBG pCO2 Pt Tmp 32.2 L O2 Delivery Device Not entered Not entered Vent Mode Not entered Radiography Diagnostic Testing: Clinical Impression(s) from Imaging Studies Abdomen/Pelvis CT 08/12/25 10:43 IMPRESSION: Fatty liver. Pancreatitis without phlegmon or pseudocyst. Reading Location: [id number] Management Discussion w/another healthcare provider: Hospitalist Critical Care Time Critical Care Time: Yes Critical care time (excluding procedures): 30-74 minutes (41 min), Including time spent:, Discussing w/Patient &/or Family/Base Ply Hand, Discussing w/Consultants, Arranging Admission or Transfer and Performing Direct Patient Care at Bedside Discharge Plan Dx/Rx/DC Orders Clinical Impression: Acute on chronic pancreatitis, LUI (acute kidney injury), Hyperglycemia due to type 2 diabetes mellitus, Ketosis Disposition Disposition: [facility]
[2025-08-12 08:41] LABS: Hematocrit 41.3 % (37-47); Hemoglobin 14.1 g/dL (12.0-15.0); Mean Corp Hgb Conc 34.1 g/dL (32-36); Mean Corpuscular Volume 102.0 fL (81-99); Mean Platelet Vol. 10.1 fl (6.2-12.0); POSITIVE DIFFERENTIAL YES; POSITIVE MORPHOLOGY YES; Platelet Count 181 K/mm3 (150-450); RBC Distribution Width CV 13.6 % (11.6-14.6); RBC Distribution Width SD 50.9 fl (35.1-43.9); Red Blood Count 4.05 M/mm3 (4.2-5.4); White Blood Count 11.8 K/mm3 (4.4-11.0)
[2025-08-12] MEDS: 0.9% Normal Saline (1000mL) 1,000 ML 999 ML IV ×3 (08:50→14:08)
--- OUTSIDE RECORDS SUMMARY | 2025-08-12 08:53 | XMS RPT_ITS | CCD ---
Author Organization [facility] Care Team Providers Care Assembler Arranger Name Role Phone Required, No Pcp Unavailable Unavailable MikoNoe gordon Unavailable Ihsan Aguilar DO Primary Care Provider [phone] Calvin Waldrop Primary Care Provider Unavailabl e Calvin Waldrop Referring Provider Unavailable Brendan SMITH, LUIS Lang Attending Provider Dr. Calvin Waldrop Primary Care [...] Provider Dr. Young Kiran Referring Provider Ganesh ACCOUNTANT MANAGER, ACCOUNTANT MANAGER-C Jim Attending Provider Jose, DO Milana M Primary Care Provider Jose, DO Milana M Referring Provider Beau SMITH PA Jericho Attending Provider Jose, DO Milana M Primary Care Provider Jose, DO Milana M Primary Care Provider Jose, DO Milana M Referring Provider LUIS Rosario Attending Provider Ganesh ACCOUNTANT MANAGER, ACCOUNTANT MANAGER-C Jim Attending Provider LUIS Gramajo Attending Provider [...] Provider Dr. Francisco Colon MD Emergency Provider [phone] Dr. Francsico Colon MD Attending Provider Dr. Humphrey Garcia DO Referring Provider Dr. Humphrey Garcia DO Emergency Provider Antwan LEBLANC, Dr. [place] [facility] Attending Provider Dashawn Moncada MD, Dr. [place] Other Provider Unavailab rob Becker DO, Dr. Cavanaugh Attending Provider Lucia LEBLANC, Dr. Lemos Other Provider Unavailable Antwan LEBLANC, Dr. [place] Attending Provider Dashawn Myers MD, Dr. Lemos Attending Provider Unavaila tommie Becker DO, Dr. Cavanaugh [facility] Morales Emergency Provider Chaka LEBLANC, Dr. Myra Siu Admit Provider Chaka LEBLANC, Dr. Myra Siu Attending Provider Chaka LEBLANC, Dr. Myra Siu Other Provider Chaka LEBLANC, Dr. Myra Siu Attending Provider Sudha LEBLANC, Abisai Primary Care Provider Eugene STARK, Dr. Diallo Attending Provider Eugene STARK, Dr. Diallo Emergency Provider Isaiah LEBLANC, Dr. Singh Attending Provider Isaiah LEBLANC, Dr. Singh Emergency Provider Dr. Humphrey Garcia DO Referring Provider Radha STARK, Dr. Yin Emergency Provider Antwan LEBLANC, Dr. [place] Admit Provider Unavailab rob Moncada MD, Dr. [place] Other Provider Unavailab rob Becker DO, Dr. Cavanaugh Attending Provider Lucia LEBLANC, Dr. Lemos Other Provider Unavailable Antwan LEBLANC, Dr. [place] Attending Provider Dashawn Myers MD, Dr. Lemos Attending Provider Unavailyang Becker DO, Dr. Cavanaugh Other Provider LindaStaci STARK, Dr. Morales Emergency Provider Chaka LEBLANC, Dr. Myra Siu Admit Provider Chaka LEBLANC, Dr. Myra Siu Other Provider Chaka LEBLANC, Dr. Myra Siu Attending Provider Lucia LEBLANC, Dr. Lemos Admit Provider Unavailable Ivon Sams Referring Unavailable LatrellJosepyn Attending Unavailable Sudha, Chalon Primary Care Unavailable Imani Knight Attending Unavailable Sudha, Chalon Primary Care Unavailable Francisco Colon Attending Unavailable Sudha, Chalon Primary Care Unavailable Sudha, Chalon Primary Care Unavailable White, Myra L Admitting Unavailable White, Myra L Consulting Unavailable Mao Becker Attending Unavailable Sudha, Chalon Primary Care Unavailable Garcia, Humphrey Referring Unavailable Moncada, Achintya Admitting Unavailable Moncada, Achintya Consulting Unavailable Mao Becker Attending Unavailable KitCanelo madrigal Consulting Unavailable TereletskyMao Consulting Unavailable Rober Concepcion Attending Unavailable Sudha, Chalon Primary Care Unavailable Sudha, Chalon Referring Unavailable Sudha, Thangon Attending Unavailable Sudha, Chalon Primary Care Unavailable Sudha, Chalon Primary Care Unavailable Cassandra Loredo Attending Unavail able Milana Garcia Referring Unavailable Sudha, Chalon Primary Care Unavailable Canelo Myers Attending Unavailable Canelo Myers Admitting Unavailable Canelo Myers Consulting Unavailable Canelo Myers Attending Unavailable Moncada, Achintya Attending Unavailable Sudha, Chalon Referring Unavailable Lorenzo Stewart Attending Unavailable Sudha, Chalon Primary Care Unavailable Jose Taylor Attending Unavailable Sudha, Chalon Primary Care Unavailable Sudha, Chalon Primary Care Unavailable White, Myra L Consulting Unavailable White, Myra L Admitting Unavailable Tereletsky, Mao Attending Unavailable Terjassi, Mao Consulting Unavailable Sudha, Chalon Primary Care Unavailable Canelo Myers Attending Unavailable Canelo Myers Admitting Unavailable Garcia, Humphrey Referring Unavailable Moncada, Achintya Admitting Unavailable Sudha, Chalon Primary Care Unavailable Moncada, Achintya Consulting Unavailable Mao Becker Attending Unavailable KitCanelo madrigal Consulting Unavailable Sudha, Chalon Referring Unavailable Sudha, Thangon Attending Unavailable Sudha, Chalon Primary Care Unavailable Sudha, Chalon Primary Care Unavailable White, Myra L Attending Unavailable Sudha, Chalon Referring Unavailable LatrellMarvinIvon Attending Unavailable Sudha, Chalon Primary Care Unavailable Sudha, Chalon Primary Care Unavailable Cassandra Loredo Referring Unavail able Cassandra Loredo Attending Unavail able Medications Current Medications Medication Drug Class(es) Dates Sig (Normalized) Sig (Original) [id number] 200 actuat albuterol 0.09 mg/actuat metered dose inhaler (20 sources) beta2-Adrenergic Agonist Start: 02-12-2023 End: 04-27-2024 Start: 02-12-2023 End: 04-27-2024 Albuterol Sulfate 90 mcg/act uation HFA aerosol inhaler Active 2 NMA INHALATION EVERY 6 HOURS as needed for shortness of breath or wheezing 8.5 0 April 27, 2024 10:01am Start: 02-12-2023 take 1 puff(s) by in halation every six hours Albuterol Sulfate Active 2 PUFF INHALATION EVERY 6 HOURS 8.5 February 12, 2023 12:00am Start: 09-12-2018 End: 02-23-2021 take 1 puff(s) by inhalation every four hours as needed Albuterol Sulfate Discontinued 2 PUFF INHALATION EVERY 4 HOURS NEEDED September 12, 2018 9:54am February 23, 2021 9:16am Dispense with Spacer Start: 09-12-2018 End: 02-23-2021 Albuterol Sulfate 1 INHALER inhaler Discontinued 2 NMA INHALATION EVERY 4 HOURS NEEDED as needed for Wheezing 1 0 September 12, 2018 12:00am February 23, 2021 9:16am Dispense with Spacer Start: 09-12-2018 End: 02-23-2021 take 1 puff(s) by inhalation every four hours as needed Albuterol Sulfate Discontinued 2 PUFF INHALATION EVERY 4 HOURS NEEDED September 12, 2018 12:00am February 23, 2021 9:16am Dispense with Spacer Start: 06-07-2017 End: 02-23-2021 Start: 06-07-2017 End: 02-23-2021 Albuterol Sulfate 1 [...] 0 Active amLODIPine 5 mg oral tablet (15 sources) Dihydropyridine Calcium Channel Lovely Start: 04-04-2025 Start: 11-19-2022 take 5 mg by mouth once daily Amlodipine Active 5 MG PO DAILY 60 November 19, 2022 1:00am Start: 04-01-2020 take [...] th once daily. aspirin 81 mg chewable table t (20 sources) Platelet Aggregation Inhibitor, Nonsteroidal Anti-inflammatory Drug Start: 11-19-2022 atorvastatin 40 mg oral tabl et (20 sources) HMG-CoA Reductase Inhibitor Start: 08-26-2023 End: 07-17-2025 Budesonide-Formoterol (20 sources) Corticosteroid, beta2-Adrenergic Agonist Start: 04-26-2025 Start: 04-26-2025 Budesonide-For moterol 160-4.5 mcg/actuation HFA aerosol inhaler Active 2 NMA INHALATION TWICE A DAY April 26, 2025 12:00am SOB Start: 04-26-2025 Budesonide-For moterol 160-4.5 mcg/actuation HFA aerosol inhaler Active 2 NMA INHALATION TWICE A DAY April 26, 2025 12:00am Start: 04-09-2023 End: 05-24-2025 Start: 04-09-2023 End: 05-24-2025 Budesonide-Formoterol (Symbi merced) 80-4.5 mcg/actuation Hfa Aerosol Inhaler Discontinued 1 NMA INHALATION TWICE A DAY April 09, 2023 12:00am May 24, 2025 11:34pm SOB/wheezing Start: 04-09-2023 End: 05-24-2025 Budesonide-Formoterol (Symbi merced) 80-4.5 mcg/actuation Hfa Aerosol Inhaler Discontinued 1 NMA INHALATION TWICE A DAY April 09, 2023 12:00am May 24, 2025 11:34pm Start: 04-09-2023 Budesonide-For moterol (Symbicort) 80-4.5 mcg/actuation [...] instructed. 0 07/04/2015 Active 24 hr buPROPion hydrochlorid e 150 mg extended release oral tablet (20 sources) Aminoketone Start: 06-07-2020 Comment on above: Take 1 tablet by jean th once daily. busPIRone hydrochloride 5 mg oral tablet (9 sources) Start: 04-04-2025 Start: 02-23-2021 take 15 mg by mouth twice isabel y Buspirone Active 15 MG PO TWICE A DAY February 23, 2021 9:15am cholecalciferol 0.05 mg oral capsule (11 sources) Vitamin D Start: 08-25-2023 cyclobenzaprine hydrochloride 10 mg oral tablet (3 [...] sources) Sodium-Glucose Cotransporter 2 Inhibitor Start: 11-12-2024 Start: 01-21-2023 End: 11-12-2024 FLUoxetine 40 mg oral capsule (2 sources) Serotonin Reuptake Inhibitor Start: 07-17-2025 fluticasone propionate 0.05 mg/actuat metered dose nasal spray (20 sources) Corticosteroid Start: 04-22-2024 take 2 spray(s) by mouth once daily fluticasone (FLONASE) 50 mcg/actuation nasal spray Indications: Sinus congestion Use 2 Sprays in each nostril once daily. Rinse mouth after use. 1 Each 0 04/22/2024 Active Start: 07-25-2019 End: 02-23-2021 Start: 07-25-2019 End: 02-23-2021 Fluticasone Propionate 1 INH ALER inhaler Discontinued 1 NMA INHALATION TWICE A DAY July 25, 2019 12:00am February 23, 2021 9:17am Start: 07-25-2019 End: 02-23-2021 take 1 puff(s) by inhalation twice daily Fluticasone Propionate Discontinued 1 PUFF INHALATION TWICE A DAY July 25, 2019 12:00am February 23, 2021 9:17am glimepiride 4 mg oral tablet (5 sources) Sulfonylurea Start: 05-06-2025 hydrOXYzine hydrochloride 10 mg oral tablet (12 sources) Antihistamine Start: 04-04-2025 Start: 04-01-2020 take 1 tablet by jean [...] as needed for Itching/Rash or Anxiety. levocetirizine dihydrochlori de 5 mg oral tablet (20 sources) Histamine-1 Receptor Antagonist Start: 04-11-2025 Start: 04-09-2023 End: 04-04-2025 lisinopril 40 mg oral tablet (20 sources) Angiotensin Converting Enzyme Inhibitor Start: 04-11-2025 Start: 08-22-2024 End: 02-26-2025 Start: 06-09-2023 End: 08-22-2024 Start: 06-09-2023 End: 08-22-2024 take 5 mg by mouth once daily Lisinopril 10 mg tablet Discontinued 5 mg PO DAILY 28 05January 24, 2024 11:52am August 22, 2024 10:20am BLOOD PRESSURE Start: 06-09-2023 End: 07-23-2023 take 1 tablet by mouth once daily Lisinopril 10 mg tablet Discontinued 10 mg PO DAILY 28 05June 09, 2023 8:25am July 23, 2023 6:05pm BLOOD PRESSURE Start: 11-18-2022 End: 06-09-2023 Lisinopril 40 mg tablet Disc ontinued 20 mg PO DAILY November 18, 2022 1:00am June 09, 2023 8:25am BLOOD PRESSURE Start: 11-18-2022 End: 06-09-2023 take 20 mg by mouth once daily Lisinopril Discontinued 20 MG PO DAILY November 18, 2022 1:00am June 09, 2023 8:25am Start: 04-01-2020 End: 06-09-2023 Start: 09-04-2018 take 40 mg by mouth once daily Lisinopril Active 40 MG PO DAILY September 04, 2018 10:40pm Start: 08-03-2017 End: 09-04-2018 Start: 08-02-2017 End: 08-03-2017 take 2 tablets by mouth once daily Lisinopril 10 MG tablet Discontinued 20 mg PO DAILY August 02, 2017 2:02pm August 03, 2017 2:12pm Start: 08-02-2017 End: 08-03-2017 take 20 mg by mouth once daily Lisinopril Discontinued 20 MG PO DAILY August 02, 2017 2:02pm August 03, 2017 2:12pm Start: 06-07-2017 End: 08-03-2017 Start: 06-07-2017 End: 08-02-2017 take 1 tablet by mouth once daily Lisinopril 10 MG tablet Discontinued 10 mg PO DAILY June 07, 2017 12:00am August 02, 2017 2:03pm Comment on above: Take 1 tablet by jean th once daily. metFORMIN hydrochloride 500 mg oral tablet (20 sources) Biguanide Start: 10-31-2022 Start: 07-25-2019 take 1 tablet by jean th twice daily metFORMIN (GLUCOPHAGE) 500 mg tablet Take 1 tablet by mouth twice daily. 180 tablet 1 06/07/2020 Active Comment on above: Take 1 tablet by jean twice daily. 24 hr metoprolol succinate 2 5 mg extended release oral tablet (20 sources) beta-Adrenergic Lovely Start: 11-12-2024 Start: 05-20-2023 End: 11-12-2024 Start: 10-31-2022 End: 05-20-2023 take 1 tablet by mouth once daily Metoprolol Succinate 50 mg tablet extended release 24 hr Discontinued 50 NMA PO DAILY October 31, 2022 1:00am May 20, 2023 10:15am BLOOD PRESSURE Start: 10-31-2022 End: 05-20-2023 Metoprolol Succinate Discont [...] Start: 04-01-2020 take 1 tablet by jean once daily metoprolol succinate ER (TOPROL XL) 50 mg 24 hr tablet Indications: Essential hypertension Take 1 tablet by mouth once daily. 90 tablet 04/01/2020 Active Comment on above: Take 1 tablet by jean once daily. montelukast 10 mg oral tablet (20 sources) Leukotriene Receptor Antagonist Start: 2 Multivitamin preparation (1 source) Start: 2 take 1 tablet by mouth once daily Multivitamin Active 1 TABLET PO DAILY February 22, 2022 12:47pm Benton-3 Fatty Acids (3 sources) Start: 3 take 1000 mg by mouth once daily Benton-3 Fatty Acids Active 1000 MG PO DAILY August 24, 2023 11:00pm Start: 08-25-2023 take 1000 mg by mouth once colleen ly Benton-3 Fatty Acids Active 1000 MG PO DAILY August 25, 2023 12:00am omeprazole 20 mg delayed release oral capsule (1 source) Proton Pump Inhibitor Start: 02-22-2022 take 20 mg by mouth once daily Omeprazole Active 20 MG PO DAILY February 22, 2022 12:47pm ondansetron 4 mg disintegrating oral tablet (20 sources) Serotonin-3 Receptor Antagonist Start: 07-20-2025 Start: 04-04-2025 End: 04-26-2025 Start: 04-27-2024 End: 08-22-2024 Start: 04-27-2024 End: 08-22-2024 take 1 tablet by mouth every six hours as needed for vomiting Ondansetron 4 mg tablet,disintegrating Discontinued 4 mg PO EVERY 6 HOURS as needed for vomiting 10 0 July 11, 2024 2:11pm August 22, 2024 10:00am Start: 07-29-2023 End: 08-25-2023 Start: 07-15-2020 End: 04-25-2024 take 1 tablet by mouth every six hours as needed ondansetron orally disintegrating (ZOFRAN ODT) 4 mg disintegrating tablet Take 1 tablet by mouth every 6 hours as needed for Nausea/Vomiting. 24 tablet 1 07/15/2020 04/22/2024 Discontinued Comment on above: Take 1 tablet by jean th every 6 hours as needed for Nausea/Vomiting. oxyCODONE hydrochloride 5 mg oral tablet (1 source) Opioid Agonist Start: 07-20-2025 pantoprazole 40 mg delayed release oral tablet (20 sources) Proton Pump Inhibitor Start: 04-11-2023 End: 05-04-2023 Start: 04-11-2023 End: 05-04-2023 take 1 tablet by mouth once daily Pantoprazole 40 mg Tablet,Delayed Release (Dr/Ec) Discontinued 40 mg PO DAILY 30 April 11, 2023 12:00am May 04, 2023 [...] (3 sources) Serotonin Reuptake Inhibitor Start: 04-01-20 20 take 1 tablet by mouth once daily [...] sources) Opioid Agonist Start: 10-09-2024 End: 04-04-2025 Start: 10-09-2024 End: 04-04-2025 Oxycodone-Acetaminophen 5-32 5 mg tablet Discontinued 1 {tbl} PO TWICE A DAY as needed 0 October 09, 2024 1:00am April 04, 2025 2:34pm Start: 08-23-2023 End: 08-22-2024 Oxycodone-Acetaminophen 5-32 5 mg tablet Discontinued 1 {tbl} PO EVERY 6 HOURS NEEDED as needed for Pain 12 3 0 July 11, 2024 August 22, 2024 10:00am Acute low back pain Low back pain, unspecified Start: 07-29-2023 End: 08-22-2024 Start: 07-29-2023 End: 08-25-2023 Oxycodone-Acetaminophen (Per cocet) 5-325 mg tablet Discontinued 1 {tbl} PO Q8H as needed for pain 10 3 0 July 29, 2023 August 25, 2023 10:03am Epigastric pain Chronic pancreatitis Epigastric pain Other chronic pancreatitis amoxicillin 875 mg / clavula jason 125 mg oral tablet (20 sources) Penicillin-class Antibacterial Start: 09-15-2023 End: 09-27-2023 Start: 09-15-2023 End: 09-27-2023 Amoxicillin-Pot Clavulanate 875-125 mg tablet Discontinued 1 {tbl} PO TWICE A DAY September 15, 2023 12:00am September 27, 2023 3:27pm Start: 09-15-2023 End: 09-27-2023 take 1 tablet by mouth twice daily Amoxicillin-Pot Clavulanate Discontinued 1 TABLET PO TWICE A DAY September 15, 2023 12:00am September 27, 2023 3:27pm Start: 07-01-2023 End: 07-11-2023 Start: 07-01-2023 End: 07-11-2023 Amoxicillin-Pot Clavulanate 875-125 mg tablet Discontinued 1 {tbl} PO Q12H July 01, 2023 12:00am July 10, 2023 12:00am July 11, 2023 12:03am Acute sinusitis, unspecified Start: 07-01-2023 End: 07-11-2023 take 1 tablet by mouth every twelve hours Amoxicillin-Pot Clavulanate Discontinued 1 TABLET PO Q12H 17 09July 01, 2023 12:00am July 11, 2023 12:03am citalopram 40 mg oral tablet (20 sources) Serotonin Reuptake Inhibitor Start: 04-11-2025 End: 07-17-2025 Start: 03-22-2023 End: 04-11-2025 clindamycin 300 mg oral caps ule (10 sources) Lincosamide Antibacterial Start: 09-27-2023 End: 08-22-2024 dextromethorphan hydrobromid e 2 mg/ml / guaiFENesin 20 mg/ml oral solution (14 sources) Uncompetitive O-dfwbud-Y-aspartate Receptor Antagonist, Sigma-1 Agonist Start: 07-01-2023 End: 08-25-2023 Start: 07-01-2023 End: 08-25-2023 take 1 mL by mouth every four hours as needed for cough Dextromethorphan-Guaifenesin 10-100 mg/5 mL liquid Discontinued 10 mL PO Q4H as needed for cough 500 0 July 01, 2023 12:00am August 25, 2023 10:18am Start: 07-01-2023 End: 08-25-2023 take 1 mL by mouth every four hours Dextromethorphan-Guaifenesin Discontinue d 10 ML PO Q4H 500 July 01, 2023 12:00am August 25, 2023 10:18am Start: 07-01-2023 take 1 mL by mouth every four hours Dextromethorphan-Guaifenesin Active 10 M L PO Q4H 500 July 01, 2023 12:00am diazePAM 5 mg oral tablet (8 sources) Benzodiazepine Start: 07-11-2024 End: 08-28-2024 doxycycline hyclate 100 mg o ral capsule (20 sources) Tetracycline-class Drug Start: 04-27-2024 End: 05-04-2024 Start: 10-19-2023 End: 08-22-2024 Start: 04-09-2023 take 100 mg by mouth twice daily Doxycycline Monohydrate Active 100 MG PO TWICE A DAY April 09, 2023 12:00am Magnesium (15 sources) Start: 04-04-2025 End: 04-11-2025 take 1 tablet by mouth twice daily Magnesium 250 mg tablet Discontinued 250 mg PO TWICE A DAY 28 14 0 April 04, 2025 12:00am April 11, 2025 10:18pm Start: 04-04-2025 End: 04-11-2025 take 1 tablet by mouth twice daily Magnesium 250 mg tablet Discontinued 250 mg PO TWICE A DAY 28 April 04, 2025 12:00am April 11, 2025 10:18pm Start: 04-04-2025 take 1 tablet by jean th twice daily Magnesium 250 mg tablet Active 250 mg PO TWICE A DAY 28 April 04, 2025 12:00am Start: 08-25-2023 take [...] 12:00am magnesium oxide 250 mg oral tablet (7 sources) Start: 04-11-2025 End: 04-26-2025 meloxicam 15 mg oral tablet (8 sources) Nonsteroidal Anti-inflammatory Drug Start: 08-28-2024 End: 04-04-2025 Methylprednisolone (20 sources) Corticosteroid Start: 07-01-2023 End: 07-07-2023 Start: 07-01-2023 End: 07-07-2023 take 1 tablet by mouth once Methylprednisolone (Medrol (Mario)) 4 mg tablets,dose pack Discontinued 4 mg PO per package directions 21 6 0 July 01, 2023 12:00am July 06, 2023 12:00am July 07, 2023 12:03am Start: 04-09-2023 [facility] Methylprednisolone (Medrol) 8 mg Tablet Active 8 MG PO DAILY April 09, 2023 12:00am Start: 02-12-2023 End: 02-18-2023 Start: 02-12-2023 End: 02-18-2023 take 1 tablet by mouth once Methylprednisolone (Medrol (Mario)) 4 mg tablets,dose pack Discontinued 4 mg PO per package directions 21 6 0 February 12, 2023 12:00am February 17, 2023 12:00am February 18, 2023 12:05am Benton-3 Fatty Acids 1,000 mg capsule (6 sources) Start: 08-25-2023 End: 05-06-2025 take 1 capsule by mouth once daily Benton-3 Fatty Acids 1,000 mg capsule Discontinued 1000 mg PO DAILY August 25, 2023 12:00am May 06, 2025 1:18pm Start: 08-25-2023 take 1 capsule by [facility] once daily Benton-3 Fatty Acids 1,000 mg capsule Active 1000 mg PO DAILY August 25, 2023 12:00am phenazopyridine hydrochloride 95 mg oral tablet (9 sources) Start: 08-25-2023 End: 04-11-2025 take 1 tablet by mouth twice daily Phenazopyridine 95 mg tablet Discontinued 95 mg PO TWICE A DAY August 25, 2023 12:00am April 11, 2025 10:18pm potassium chloride 20 meq powder for oral solution (8 sources) Start: 04-04-2025 End: 04-26-2025 predniSONE 10 mg oral tablet (13 sources) Start: 03-22-2024 End: 08-22-2024 Start: 07-21-2022 End: 04-22-2024 predniSONE (DELTASONE) 10 [...] 2021 9:16am tiZANidine 4 mg oral tablet (8 sources) Central alpha-2 Adrenergic Agonist Start: 4 End: 5 varenicline 1 mg oral tablet (7 sources) Partial Cholinergic Nicotinic Agonist Start: 4 End: 5 take 1 tablet by mouth twice daily Varenicline Tartrate (Chantix) 1 mg tablet Discontinued 1 mg PO TWICE A DAY August 22, 2024 12:00am April 04, 2025 2:34pm Start: 03-21-2024 take 1 tablet by mouth once va renicline (CHANTIX) 1 mg tablet Take 1 tablet by mouth every afternoon. 0 03/21/2024 Active (14 sources) Start: 04-04-2025 End: 04-11-2025 Start: 08-22-2024 End: 04-04-2025 Start: 08-25-2023 Start: 08-25-2023 End: 04-11-2025 Start: 08-25-2023 End: 05-06-2025 Start: 10-31-2022 End: 05-20-2023 Start: 07-25-2019 End: 02-23-2021 Problems Active Problems Problem Classification Problem Date Documented Da te Episodic/Chronic Abdominal pain (20 sources) Epigastric pain; Translations: [Epigastric pain] 10-08-2016 Episodic Acute bronchitis (20 sources) Acute bronchitis; Translations: [...] [Unspecified asthma with (acute) exacerbation] 08-17-2018 Chronic Chronic obstructive pulmonary disease and bronchiectasis (20 sources) Bronchitis; Translations: [Bronchitis, not specified as acute or chronic] 09-06-2018 Episodic Conditions associated with dizziness or vertigo (20 sources) Vertigo; Translations: [Dizziness and giddiness] 04-10-2023 Episodic Coronary atherosclerosis and other heart disease (20 sources) Acute coronary syndrome; Translations: [Acute ischemic heart disease, unspecified] Chronic Diabetes mellitus with complications (20 sources) Hyperglycemia due to diabetes mellitus; Translations: [...] unspecified class] 07-25-2019 Chronic E Codes: Fall (7 sources) Fall; Translations: [Unspecified fall, initial encounter] [...] Chronic Immunizations and screening for infectious disease (9 sources) Contact with or exposure to other viral diseases 09-15-2023 Episodic Mood disorders (3 sources) Depressive disorder; Translations: [Depression] Onset: 08-15-2013 10-09-2014 Chronic Nausea and vomiting (20 sources) Nausea; Translations: [Nausea] 04-22-2024 Episodic Nonspecific [...] 08-31-2019 08-31-2019 Chronic Other connective tissue disease (9 sources) Plantar fasciitis of left foot; Translations: [Plantar fascial fibromatosis] 03-22-2024 Episodic Other connective tissue disease (1 source) Plantar fascial fibromatosis; Translations: [Plantar fascial fibromatosis] 03-22-2024 Episodic Other diseases of kidney and ureters (20 sources) Acute renal insufficiency; Translations: [Disorder of kidney and ureter, unspecified] 03-22-2023 Episodic Other gastrointestinal disorders (20 sources) History of pancreatitis; Translations: [Personal history of other diseases of the digestive system] 09-26-2014 Episodic Other lower respiratory disease (1 source) Wheezing; Translations: [Wheezing] 04-22-2024 Episodic Other lower respiratory disease (8 sources) Dyspnea; Translations: [Shortness of breath] 11-20-2024 Episodic Other lower respiratory disease (7 sources) History of chronic obstructive airway disease; Translations: [Personal history of other diseases of the respiratory system] 04-12-2025 Episodic Other non-traumatic joint disorders (2 sources) Hip pain; Translations: [Pain in left hip] Episodic Other nutritional; endocrine; and metabolic disorders (8 sources) Hypomagnesemia; Translations: [Hypomagnesemia] 04-04-2025 Chronic Other nutritional; endocrine; and metabolic disorders (11 sources) H/O: diabetes mellitus; Translations: [Personal history [...] unspecified, bilateral] Episodic Pancreatic disorders (not diabetes) (20 sources) Chronic pancreatitis; Translations: [Other chronic pancreatitis] Onset: 07-25-2025 07-29-2023 Chronic Pancreatic disorders (not diabetes) (19 sources) Pancreatitis; Translations: [Acute pancreatitis without necrosis or infection, unspecified] Onset: 05-09-2025 04-26-2025 Episodic Screening and history of mental health and substance abuse codes (15 sources) High alcohol level in blood; Translations: [Finding of alcohol in blood] 05-25-2023 Episodic Spondylosis; intervertebral disc disorders; other back problems (8 sources) Inflammation of sacroiliac joint; Translations: [Sacroiliitis, [...] EXAM 06-10-2021 Comment on above: EXAM Unclassified (3 sources) IN TWO WEEKS Unclassified (1 source) Low back pain, unspecified; Translations: [Low back pain, unspecified] Onset: 08-28-2024 Viral infection (20 sources) Viral disease; Translations: [Viral infection, unspecified] 02-22-2016 Episodic Past or Other Problems Problem Classification Problem Date Documented Da te Episodic/Chronic Cardiac dysrhythmias (20 sources) Palpitations; Translations: [Palpitations] Onset: 05-20-2023 Episodic Diabetes or abnormal glucose tolerance complicating [...] conditions (not mental disorders or infectious disease) (9 sources) D-dimer above reference range; Translations: [Other [...] Onset: 3 10-31-2014 Episodic Residual codes; unclassified (20 sources) History of cardiac catheterization; Translations: [Other [...] Spondylosis; intervertebral disc disorders; other back problems (20 sources) Lumbar radiculopathy; Translations: [Radiculopathy, lumbar region] Onset: 4 08-28-2024 Episodic Unclassified (20 sources) plantar fasciitis release 06-18-2022 Unclassified (8 sources) Admitted to alcohol detoxification center 05-25-2025 Results Test Name Value Interpretation Reference Range Facility CBC W/Diff, Automatedon 08-2 Absolute Neut Normal 2.0-7.7 [facility] Comment on above: Result Comment: Canc elled via OM: Order cancelled - Patient discharged Performed By: #### L 500.4050, L100.0100 ####[facility] [address] [place], [place], [id number] HCT Normal 37-47 [facility] Comment on above: Result Comment: Canc elled via OM: Order cancelled - Patient discharged Performed By: #### L 500.4050, L100.0100 ####[facility] [address] [place], [address] HGB Normal 12.0-15.0 [facility] Comment on above: Result Comment: Canc elled via OM: Order cancelled - Patient discharged Performed By: #### L 500.4050, L100.0100 ####[facility] [address] [place], [address] MCH Normal 27.0-32.0 [facility] Comment on above: Result Comment: Canc elled via OM: Order cancelled - Patient discharged Performed By: #### L 500.4050, L100.0100 ####[facility] [address] [place], [address] MCHC Normal 32-36 [facility] Comment on above: Result Comment: Canc elled via OM: Order cancelled - Patient discharged Performed By: #### L 500.4050, L100.0100 ####[facility] [address] [place], [address] MCV Normal 81-99 [facility] Comment on above: Result Comment: Canc elled via OM: Order cancelled - Patient discharged Performed By: #### L 500.4050, L100.0100 ####[facility] [address] [place], [address] NEUT% Normal 47-70 [facility] Comment on above: Result Comment: Canc elled via OM: Order cancelled - Patient discharged Performed By: #### L 500.4050, L100.0100 ####[facility] [address] [place], [address] PLT Normal 150-450 [facility] Comment on above: Result Comment: Canc elled via OM: Order cancelled - Patient discharged Performed By: #### L 500.4050, L100.0100 ####[facility] [address] [place], [address] RBC Normal 4.2-5.4 [facility] Comment on above: Result Comment: Canc elled via OM: Order cancelled - Patient discharged Performed By: #### L 500.4050, L100.0100 ####[facility] [address] [place], [address] RDW CV Normal 11.6-14.6 [facility] Comment on above: Result Comment: Canc elled via OM: Order cancelled - Patient discharged Performed By: #### L 500.4050, L100.0100 ####[facility] [address] [place], [address] RDW SD Normal 35.1-43.9 [facility] Comment on above: Result Comment: Canc elled via OM: Order cancelled - Patient discharged Performed By: #### L 500.4050, L100.0100 ####[facility] [address] [place], [address] WBC Normal 4.4-11.0 [facility] Comment on above: Result Comment: Canc elled via OM: Order cancelled - Patient discharged Performed By: #### L 500.4050, L100.0100 ####[facility] [address] [place], [address] Comprehensive Metabolic Prof ilon 07-22-2025 ALB Normal 3.5-5.0 [facility] Comment on above: Result Comment: Canc elled via OM: Order cancelled - Patient discharged Performed By: #### L 500.4050, L100.0100 ####[facility] [address] [place], [address] ALK PHOS Normal 35-104 [facility] Comment on above: Result Comment: Canc elled via OM: Order cancelled - Patient discharged Performed By: #### L 500.4050, L100.0100 ####[facility] [address] [place], [address] ALT Normal <=34 [facility] Comment on above: Result Comment: Canc elled via OM: Order cancelled - Patient discharged Performed By: #### L 500.4050, L100.0100 ####[facility] [address] [place], [address] AST Normal <=31 [facility] Comment on above: Result Comment: Canc elled via OM: Order cancelled - Patient discharged Performed By: #### L 500.4050, L100.0100 ####[facility] [address] [place], [address] BUN Normal 4-19 [facility] Comment on above: Result Comment: Canc elled via OM: Order cancelled - Patient discharged Performed By: #### L 500.4050, L100.0100 ####[facility] [address] [place], [address] BUN/CRE Normal 10-20 [facility] Comment on above: Result Comment: Canc elled via OM: Order cancelled - Patient discharged Performed By: #### L 500.4050, L100.0100 ####[facility] [address] [place], [address] Calcium Normal 7.6-11.0 [facility] Comment on above: Result Comment: Canc elled via OM: Order cancelled - Patient discharged Performed By: #### L 500.4050, L100.0100 ####[facility] [address] [place], [address] CL Normal 98-108 [facility] Comment on above: Result Comment: Canc elled via OM: Order cancelled - Patient discharged Performed By: #### L 500.4050, L100.0100 ####[facility] [address] [place], [address] CO2 Normal 21.0-32.0 [facility] Comment on above: Result Comment: Canc elled via OM: Order cancelled - Patient discharged Performed By: #### L 500.4050, L100.0100 ####[facility] [address] [place], [address] CREAT,SERUM Normal 0.70-1.20 [facility] Comment on above: Result Comment: Canc elled via OM: Order cancelled - Patient discharged Performed By: #### L 500.4050, L100.0100 ####[facility] [address] [place], [address] eGFR Normal >60 [facility] Comment on above: Result Comment: Canc elled via OM: Order cancelled - Patient discharged Performed By: #### L 500.4050, L100.0100 ####[facility] [address] [place], [address] GAP Normal 5-15 [facility] Comment on above: Result Comment: Canc elled via OM: Order cancelled - Patient discharged Performed By: #### L 500.4050, L100.0100 ####[facility] [address] [place], [address] GLU Normal 70-99 [facility] Comment on above: Result Comment: Canc elled via OM: Order cancelled - Patient discharged Performed By: #### L 500.4050, L100.0100 ####[facility] [address] [place], [address] Potassium Normal 3.3-5.1 [facility] Comment on above: Result Comment: Canc elled via OM: Order cancelled - Patient discharged Performed By: #### L 500.4050, L100.0100 ####[facility] [address] [place], [address] T BILI Normal 0.00-1.30 [facility] Comment on above: Result Comment: Canc elled via OM: Order cancelled - Patient discharged Performed By: #### L 500.4050, L100.0100 ####[facility] [address] [place], [address] T PROT Normal 5.9-8.4 [facility] Comment on above: Result Comment: Canc elled via OM: Order cancelled - Patient discharged Performed By: #### L 500.4050, L100.0100 ####[facility] [address] [place], [address] Comprehensive Metabolic Profil Normal 133-145 [facility] Comment on above: Result Comment: Canc elled via OM: Order cancelled - Patient discharged Performed By: #### L 500.4050, L100.0100 ####[facility] [address] [place], [address] CBC W/Diff, Automatedon 08-2 Absolute Neut Normal 2.0-7.7 [facility] Comment on above: Result Comment: Canc elled via OM: Order cancelled - Patient discharged Performed By: #### L 500.4050, L100.0100 ####[facility] [address] [place], [address] HCT Normal 37-47 [facility] Comment on above: Result Comment: Canc elled via OM: Order cancelled - Patient discharged Performed By: #### L 500.4050, L100.0100 ####[facility] [address] [place], [address] HGB Normal 12.0-15.0 [facility] Comment on above: Result Comment: Canc elled via OM: Order cancelled - Patient discharged Performed By: #### L 500.4050, L100.0100 ####[facility] [address] [place], [address] MCH Normal 27.0-32.0 [facility] Comment on above: Result Comment: Canc elled via OM: Order cancelled - Patient discharged Performed By: #### L 500.4050, L100.0100 ####[facility] [address] [place], [address] MCHC Normal 32-36 [facility] Comment on above: Result Comment: Canc elled via OM: Order cancelled - Patient discharged Performed By: #### L 500.4050, L100.0100 ####[facility] [address] [place], [address] MCV Normal 81-99 [facility] Comment on above: Result Comment: Canc elled via OM: Order cancelled - Patient discharged Performed By: #### L 500.4050, L100.0100 ####[facility] [address] [place], [address] NEUT% Normal 47-70 [facility] Comment on above: Result Comment: Canc elled via OM: Order cancelled - Patient discharged Performed By: #### L 500.4050, L100.0100 ####[facility] [address] [place], [address] PLT Normal 150-450 [facility] Comment on above: Result Comment: Canc elled via OM: Order cancelled - Patient discharged Performed By: #### L 500.4050, L100.0100 ####[facility] [address] [place], [address] RBC Normal 4.2-5.4 [facility] Comment on above: Result Comment: Canc elled via OM: Order cancelled - Patient discharged Performed By: #### L 500.4050, L100.0100 ####[facility] [address] [place], [address] RDW CV Normal 11.6-14.6 [facility] Comment on above: Result Comment: Canc elled via OM: Order cancelled - Patient discharged Performed By: #### L 500.4050, L100.0100 ####[facility] [address] [place], [address] RDW SD Normal 35.1-43.9 [facility] Comment on above: Result Comment: Canc elled via OM: Order cancelled - Patient discharged Performed By: #### L 500.4050, L100.0100 ####[facility] [address] [place], [address] WBC Normal 4.4-11.0 [facility] Comment on above: Result Comment: Canc elled via OM: Order cancelled - Patient discharged Performed By: #### L 500.4050, L100.0100 ####[facility] [address] [place], [address] Comprehensive Metabolic Prof ilon 07-21-2025 ALB Normal 3.5-5.0 [facility] Comment on above: Result Comment: Canc elled via OM: Order cancelled - Patient discharged Performed By: #### L 500.4050, L100.0100 ####[facility] [address] [place], [address] ALK PHOS Normal 35-104 [facility] Comment on above: Result Comment: Canc elled via OM: Order cancelled - Patient discharged Performed By: #### L 500.4050, L100.0100 ####[facility] [address] [place], [address] ALT Normal <=34 [facility] Comment on above: Result Comment: Canc elled via OM: Order cancelled - Patient discharged Performed By: #### L 500.4050, L100.0100 ####[facility] [address] [place], [address] AST Normal <=31 [facility] Comment on above: Result Comment: Canc elled via OM: Order cancelled - Patient discharged Performed By: #### L 500.4050, L100.0100 ####[facility] [address] [place], [address] BUN Normal 4-19 [facility] Comment on above: Result Comment: Canc elled via OM: Order cancelled - Patient discharged Performed By: #### L 500.4050, L100.0100 ####[facility] [address] [place], [address] BUN/CRE Normal 10-20 [facility] Comment on above: Result Comment: Canc elled via OM: Order cancelled - Patient discharged Performed By: #### L 500.4050, L100.0100 ####[facility] [address] [place], [address] Calcium Normal 7.6-11.0 [facility] Comment on above: Result Comment: Canc elled via OM: Order cancelled - Patient discharged Performed By: #### L 500.4050, L100.0100 ####[facility] [address] [place], [address] CL Normal 98-108 [facility] Comment on above: Result Comment: Canc elled via OM: Order cancelled - Patient discharged Performed By: #### L 500.4050, L100.0100 ####[facility] [address] [place], [address] CO2 Normal 21.0-32.0 [facility] Comment on above: Result Comment: Canc elled via OM: Order cancelled - Patient discharged Performed By: #### L 500.4050, L100.0100 ####[facility] [address] [place], [address] CREAT,SERUM Normal 0.70-1.20 [facility] Comment on above: Result Comment: Canc elled via OM: Order cancelled - Patient discharged Performed By: #### L 500.4050, L100.0100 ####[facility] [address] [place], [address] eGFR Normal >60 [facility] Comment on above: Result Comment: Canc elled via OM: Order cancelled - Patient discharged Performed By: #### L 500.4050, L100.0100 ####[facility] [address] [place], [address] GAP Normal 5-15 [facility] Comment on above: Result Comment: Canc elled via OM: Order cancelled - Patient discharged Performed By: #### L 500.4050, L100.0100 ####[facility] [address] [place], [address] GLU Normal 70-99 [facility] Comment on above: Result Comment: Canc elled via OM: Order cancelled - Patient discharged Performed By: #### L 500.4050, L100.0100 ####[facility] [address] [place], [address] Potassium Normal 3.3-5.1 [facility] Comment on above: Result Comment: Canc elled via OM: Order cancelled - Patient discharged Performed By: #### L 500.4050, L100.0100 ####[facility] [address] [place], [address] T BILI Normal 0.00-1.30 [facility] Comment on above: Result Comment: Canc elled via OM: Order cancelled - Patient discharged Performed By: #### L 500.4050, L100.0100 ####[facility] [address] [place], [address] T PROT Normal 5.9-8.4 [facility] Comment on above: Result Comment: Canc elled via OM: Order cancelled - Patient discharged Performed By: #### L 500.4050, L100.0100 ####[facility] [address] [place], [address] Comprehensive Metabolic Profil Normal 133-145 [facility] Comment on above: Result Comment: Canc elled via OM: Order cancelled - Patient discharged Performed By: #### L 500.4050, L100.0100 ####[facility] [address] [place], [place], [id number] Absolute lymphocyte countOrd ered By: Canelo Myers on 07-20-2025 Lymphocytes Auto (Unsp spec) [#/Vol] 0.83 10*3/uL 0.83-4.51 [facility] Anion gap in Serum or Plasma Ordered By: Canelo Myers on 07-20-2025 Anion gap [Moles/Vol] 10 mmol/L 5-15 [facility] Automated lymphocyte count a s percentage of total leukocytesOrdered By: Canelo Myers on 07-20-2025 Lymphocytes/100 WBC Auto (Unsp spec) 19.5 % 19- [facility] BUN/creatinine ratioOrdered By: Canelo Myers on 07-20-2025 Urea nitrogen/Creatinine [Mass ratio] 10.1 mg/mg 10-20 [facility] Basophil percentageOrdered B y: Canelo Myers on 07-20-2025 Basophils/100 WBC (Bld) 0.2 % 0-[address] [facility] Bedside Glucoseon 07-20-2025 FINGERSTICK GLU 217 mg/dL High 74-106 [facility] Comment on above: Result Comment: CHAUNCEY GEMENT OF PATIENT CARE PER NURSING PROTOCOL Performed By: #### L 501.080 ####[facility] [address] [place], [place], [id number] FINGERSTICK GLU 111 mg/dL High 74-106 [facility] Comment on above: Result Comment: CHAUNCEY GEMENT OF PATIENT CARE PER NURSING PROTOCOL Performed By: #### L 501.080 ####[facility] [address] [place], [address] Bilirubin, totalOrdered By: Canelo Myers on 07-20-2025 Bilirubin [Mass/Vol] 0.86 mg/dL 0.00-1.30 [facility] CBC W/Diff, Automatedon 06-30 Absolute Lymph 0.83 X10 3/uL Normal 0.83-4.51 [facility] Comment on above: Performed By: #### L 100.0100, L500.4050 ####[facility] [address] [place], [address] Absolute Neut 2.8 X10 3/uL Normal 2.0-7.7 [facility] Comment on above: Performed By: #### L 100.0100, L500.4050 ####[facility] [address] [place], [address] Basophils/100 WBC (Bld) 0.2 % Normal 0-[address] [facility] Comment on above: Performed By: #### L 100.0100, L500.4050 ####[facility] [address] [place], [address] Eosinophils/100 WBC (Bld) 1.6 % Normal 0-5 [facility] Comment on above: Performed By: #### L 100.0100, L500.4050 ####[facility] [address] [place], [address] Erythrocyte distribution width (RBC) [Ratio] 15.2 % High 11.6-14.6 [facility] Comment on above: Performed By: #### L 100.0100, L500.4050 ####[facility] [address] [place], [address] Hematocrit (Bld) [Volume fraction] 29.2 % Low 37-47 [facility] Comment on above: Performed By: #### L 100.0100, L500.4050 ####[facility] [address] [place], [address] Hemoglobin (Bld) [Mass/Vol] 9.6 g/dL Low 12.0-15.0 [facility] Comment on above: Performed By: #### L 100.0100, L500.4050 ####[facility] [address] [place], [address] IG% 0.200 Normal 0.0-0.9 [facility] Comment on above: Result Comment: IG% - Immature Granulocytes (promyelocytes, myelocytes andmetamyelocytes) > 1% indicates that a LEFT SHIFT is Present. Performed By: #### L 100.0100, L500.4050 ####[facility] [address] [place], [address] Lymphocytes/100 WBC (Bld) 19.5 % Normal 19-41 [facility] Comment on above: Performed By: #### L 100.0100, L500.4050 ####[facility] [address] [place], [address] MCH (RBC) [Entitic mass] 33.8 pg High 27.0-32.0 [facility] Comment on above: Performed By: #### L 100.0100, L500.4050 ####[facility] [address] [place], [address] MCHC (RBC) [Mass/Vol] 32.9 g/dL Normal 32-36 [facility] Comment on above: Performed By: #### L 100.0100, L500.4050 ####[facility] [address] [place], [address] MCV (RBC) [Entitic vol] 102.8 fL High 81-[address] [facility] Comment on above: Performed By: #### L 100.0100, L500.4050 ####[facility] [address] [place], [address] Monocytes/100 WBC (Bld) 11.8 % High 0-[address] [facility] Comment on above: Performed By: #### L 100.0100, L500.4050 ####[facility] [address] [place], [address] Neutrophils/100 WBC (Bld) 66.7 % Normal 47-70 [facility] Comment on above: Performed By: #### L 100.0100, L500.4050 ####[facility] [address] [place], [address] Nucleated RBC (Bld) [#/Vol] 0 10*3/uL Normal 0-5 [facility] Comment on above: Performed By: #### L 100.0100, L500.4050 ####[facility] [address] [place], [address] Platelet mean volume (Bld) [Entitic vol] 10.9 fL Normal 6.2-12.0 [facility] Comment on above: Performed By: #### L 100.0100, L500.4050 ####[facility] [address] [place], [address] Platelets (Bld) [#/Vol] 114 10*3/uL Low 150-450 [facility] Comment on above: Performed By: #### L 100.0100, L500.4050 ####[facility] [address] [place], [address] RBC (Bld) [#/Vol] 2.84 10*6/uL Low 4.2-5.4 [facility] Comment on above: Performed By: #### L 100.0100, L500.4050 ####[facility] [address] [place], [address] RDW SD 57.6 fl High 35.1-43.9 [facility] Comment on above: Performed By: #### L 100.0100, L500.4050 ####[facility] [address] [place], [address] WBC (Bld) [#/Vol] 4.3 10*3/uL Low 4.4-11.0 [facility] Comment on above: Performed By: #### L 100.0100, L500.4050 ####[facility] [address] [place], [address] Carbon dioxide, total [Moles /volume] in Central venous bloodOrdered By: Canelo Myers on 07-20-2025 CO2 [Moles/Vol] 27.0 mmol/L 21.0-32.0 [facility] Chloride assayOrdered By: Henrry Myers on 07-20-2025 Chloride [Moles/Vol] 103 mmol/L 98-108 [facility] Comprehensive Metabolic Prof ilon 07-20-2025 Albumin [Mass/Vol] 3.0 g/dL Low 3.5-5.0 [facility] Comment on above: Performed By: #### L 100.0100, L500.4050 ####[facility] [address] [place], [address] Albumin/Globulin [Mass ratio] 1.4 {ratio} Normal 0.9-2.4 [facility] Comment on above: Performed By: #### L 100.0100, L500.4050 ####[facility] [address] [place], [address] ALK PHOS 134 U/L High 35-104 [facility] Comment on above: Performed By: #### L 100.0100, L500.4050 ####[facility] [address] [place], [address] ALT [Catalytic activity/Vol] 114 U/L High <=34 [facility] Comment on above: Performed By: #### L 100.0100, L500.4050 ####[facility] [address] [place], [address] AST [Catalytic activity/Vol] 136 U/L High <=31 [facility] Comment on above: Performed By: #### L 100.0100, L500.4050 ####[facility] [address] [place], [address] Bilirubin [Mass/Vol] 0.86 mg/dL Normal 0.00-1.30 [facility] Comment on above: Performed By: #### L 100.0100, L500.4050 ####[facility] [facility] [address] [place], [address] BUN/CRE 10.1 RATIO Normal 10-20 [facility] Comment on above: Performed By: #### L 100.0100, L500.4050 ####[facility] [address] [place], [address] Calcium [Mass/Vol] 7.6 mg/dL Normal 7.6-11.0 [facility] Comment on above: Performed By: #### L 100.0100, L500.4050 ####[facility] [address] [place], [address] Chloride [Moles/Vol] 103 mmol/L Normal 98-108 [facility] Comment on above: Performed By: #### L 100.0100, L500.4050 ####[facility] [address] [place], [address] CO2 [Moles/Vol] 27.0 mmol/L Normal 21.0-32.0 [facility] Comment on above: Performed By: #### L 100.0100, L500.4050 ####[facility] [address] [place], [address] Creatinine [Mass/Vol] 0.40 mg/dL Low 0.70-1.20 [facility] Comment on above: Performed By: #### L 100.0100, L500.4050 ####[facility] [address] [place], [address] ECRCL 148.53 ml/min Normal 50-250 [facility] Comment on above: Performed By: #### L 100.0100, L500.4050 ####[facility] [address] [place], [address] GAP 10 Normal 5-15 [facility] Comment on above: Performed By: #### L 100.0100, L500.4050 ####[facility] [address] [place], [address] GFR/1.73 sq M.predicted among non-blacks MDRD (S/P/Bld) [Vol rate/Area] 122 mL/min/{1.73_m2} Normal >60 [facility] Comment on above: Result Comment: mL/m in/1.73m2 CKD-EPI Creatinine Equation (2020) Performed By: #### L 100.0100, L500.4050 ####[facility] [address] [place], [address] Globulin (S) [Mass/Vol] 2.1 g/dL Low 2.2-4.[address] [facility] Comment on above: Performed By: #### L 100.0100, L500.4050 ####[facility] [address] [place], [address] Glucose [Mass/Vol] 107 mg/dL High 70-99 [facility] Comment on above: Performed By: #### L 100.0100, L500.4050 ####[facility] [address] [place], [address] Potassium [Moles/Vol] 3.6 mmol/L Normal 3.3-5.1 [facility] Comment on above: Performed By: #### L 100.0100, L500.4050 ####[facility] [address] [place], [address] Sodium [Moles/Vol] 140 mmol/L Normal 133-145 [facility] Comment on above: Performed By: #### L 100.0100, L500.4050 ####[facility] [address] [place], [address] T PROT 5.1 g/dL Low 5.9-8.4 [facility] Comment on above: Performed By: #### L 100.0100, L500.4050 ####[facility] [address] [place], [address] Urea nitrogen [Mass/Vol] 4 mg/dL Normal 4-19 [facility] Comment on above: Performed By: #### L 100.0100, L500.4050 ####[facility] [address] [place], [address] Eosinophil percentageOrdered By: Canelo Myers on 07-20-2025 Eosinophils/100 WBC (Bld) 1.6 % 0-5 [facility] Erythrocyte distribution wid th ratioOrdered By: Canelo Myers on 07-20-2025 Erythrocyte distribution width (RBC) [Ratio] 15.2 % High 11.6-14.6 [facility] Erythrocyte distribution wid th standard deviationOrdered By: Canelo Myers on 07-20-2025 Erythrocyte distribution width (RBC) [Ratio] 57.6 fl High 35.1-43.9 [facility] Glomerular filtration rate ( GFR) estimation/1.73 sq m using serum, plasma, or whole bOrdered By: Canelo Myers on 07-20-2025 GFR/1.73 sq M.predicted among non-blacks MDRD (S/P/Bld) [Vol rate/Area] 122 mL/min/{1.73_m2} >60 [facility] deOrdered By: Canelo Myers on 07-20-2025 Glucose [Mass/Vol] 217 mg/dL High 74-106 [facility] Hematocrit Auto (Bld) [Volum e fraction]Ordered By: Canelo Myers on 07-20-2025 Hematocrit (Bld) [Volume fraction] 29.2 % Low 37-47 [facility] Hemoglobin measurementOrdere d By: Canelo Myers on 07-20-2025 Hemoglobin (Bld) [Mass/Vol] 9.6 g/dL Low 12.0-15.0 [facility] Immature granulocytes/100 WB C Auto (Bld)Ordered By: Canelo Myers on 07-20-2025 Immature granulocytes/100 WBC (Bld) 0.200 % 0.0-0.9 [facility] MCV (mean corpuscular volume ) determinationOrdered By: Canelo Myers on 07-20-2025 MCV (RBC) [Entitic vol] 102.8 fL High 81-[address] [facility] Mean corpuscular hemoglobin (MCH) determinationOrdered By: Canelo Myers on 07-20-2025 MCH (RBC) [Entitic mass] 33.8 pg High 27.0-32.0 [facility] Monocyte percentageOrdered B y: Canelo Myers on 07-20-2025 Monocytes/100 WBC (Bld) 11.8 % High 0-[address] [facility] Neutrophil percentageOrdered By: Canelo Myers on 07-20-2025 Neutrophils/100 WBC (Bld) 66.7 % 47-70 [facility] No Panel InformationOrdered By: Canelo Myers on 07-20-2025 136 U/L High <32 [facility] Platelet countOrdered By: Henrry Myers on 07-20-2025 Platelets (Bld) [#/Vol] 114 10*3/uL Low 150-450 [facility] Potassium measurement (mass/ volume)Ordered By: Canelo Myers on 07-20-2025 Potassium (Unsp spec) [Mass/Vol] 3.6 mmol/L 3.3-5.1 [facility] RBC Auto (Bld) [#/Vol]Ordere d By: Canelo Myers on 07-20-2025 RBC (Bld) [#/Vol] 2.84 10*6/uL Low 4.2-5.4 [facility] Serum creatinine measurement (mass/volume)Ordered By: Canelo Myers on 07-20-2025 Creatinine [Mass/Vol] 0.40 mg/dL Low 0.70-1.20 [facility] Serum globulin measurementOr dered By: Canelo Myers on 07-20-2025 Globulin (S) [Mass/Vol] 2.1 g/dL Low 2.2-4.[address] [facility] Serum glucose measurement (m ass/volume)Ordered By: Canelo Myers on 07-20-2025 Glucose [Mass/Vol] 107 mg/dL High 70-99 [facility] Serum or plasma alanine wilkerson otransferase (ALT) measurementOrdered By: Canelo Myers on 07-20-2025 ALT [Catalytic activity/Vol] 114 U/L High <35 [facility] Serum or plasma albumin alphonso urement (mass/volume)Ordered By: Canelo Myers on 07-20-2025 Albumin [Mass/Vol] 3.0 g/dL Low 3.5-5.0 [facility] Serum or plasma albumin/glob ulin mass ratioOrdered By: Canelo Myers on 07-20-2025 Albumin/Globulin [Mass ratio] 1.4 {ratio} 0.9-2.4 [facility] Serum or plasma alkaline trinity sphatase measurementOrdered By: Canelo Myers on 07-20-2025 ALP [Catalytic activity/Vol] 134 U/L High 35-104 [facility] Serum or plasma calcium alphonso urement (mass/volume)Ordered By: Canelo Myers on 07-20-2025 Calcium [Mass/Vol] 7.6 mg/dL 7.6-11.0 [facility] Serum or plasma urea nitroge n measurement (mass/volume)Ordered By: Canelo Myers on 07-20-2025 Urea nitrogen [Mass/Vol] 4 mg/dL 4-19 [facility] Sodium levelOrdered By: Ganesh Myers on 07-20-2025 Sodium [Moles/Vol] 140 mmol/L 133-145 [facility] Total proteinOrdered By: Guido Myers on 07-20-2025 Protein [Mass/Vol] 5.1 g/dL Low 5.9-8.4 [facility] White blood cell (WBC) count Ordered By: Canelo Myers on 07-20-2025 WBC (Bld) [#/Vol] 4.3 10*3/uL Low 4.4-11.0 [facility] Bedside Glucoseon 07-19-2025 FINGERSTICK GLU 121 mg/dL High 74-106 [facility] Comment on above: Result Comment: CHAUNCEY GEMENT OF PATIENT CARE PER NURSING PROTOCOL Performed By: #### L 501.080 ####[facility] [address] [place], [address] FINGERSTICK GLU 91 mg/dL Normal 74-106 [facility] Comment on above: Result Comment: CHAUNCEY GEMENT OF PATIENT CARE PER NURSING PROTOCOL Performed By: #### L 501.080 ####[facility] [address] [place], [address] FINGERSTICK GLU 140 mg/dL High 74-106 [facility] Comment on above: Result Comment: CHAUNCEY GEMENT OF PATIENT CARE PER NURSING PROTOCOL Performed By: #### L 501.080 ####[facility] [address] [place], [address] FINGERSTICK GLU 94 mg/dL Normal 74-106 [facility] Comment on above: Result Comment: CHAUNCEY GEMENT OF PATIENT CARE PER NURSING PROTOCOL Performed By: #### L 501.080 ####[facility] [address] [place], [address] CBC W/Diff, Automatedon 06-30 PLT EST SLT DEC Normal ADEQ [facility] Comment on above: Performed By: #### L 500.4050, L100.0100 ####[facility] [address] [place], [address] Comprehensive Metabolic Prof ilon 07-19-2025 Albumin [Mass/Vol] 3.0 g/dL Low 3.5-5.0 [facility] Comment on above: Performed By: #### L 500.4050, L100.0100 ####[facility] [address] [place], [address] Albumin/Globulin [Mass ratio] 1.4 {ratio} Normal 0.9-2.4 [facility] Comment on above: Performed By: #### L 500.4050, L100.0100 ####[facility] [address] [place], [address] ALK PHOS 133 U/L High 35-104 [facility] Comment on above: Performed By: #### L 500.4050, L100.0100 ####[facility] [address] [place], [address] ALT [Catalytic activity/Vol] 150 U/L High <=34 [facility] Comment on above: Performed By: #### L 500.4050, L100.0100 ####[facility] [address] [place], [address] AST [Catalytic activity/Vol] 289 U/L High <=31 [facility] Comment on above: Performed By: #### L 500.4050, L100.0100 ####[facility] [address] [place], [address] Bilirubin [Mass/Vol] 1.07 mg/dL Normal 0.00-1.30 [facility] Comment on above: Performed By: #### L 500.4050, L100.0100 ####[facility] [address] [place], [address] BUN/CRE 6.1 RATIO Low 10-20 [facility] Comment on above: Performed By: #### L 500.4050, L100.0100 ####[facility] [address] [place], [address] Calcium [Mass/Vol] 7.0 mg/dL Low 7.6-11.0 [facility] Comment on above: Performed By: #### L 500.4050, L100.0100 ####[facility] [address] [place], [address] Chloride [Moles/Vol] 98 mmol/L Normal 98-108 [facility] Comment on above: Performed By: #### L 500.4050, L100.0100 ####[facility] [address] [place], [address] CO2 [Moles/Vol] 25.2 mmol/L Normal 21.0-32.0 [facility] Comment on above: Performed By: #### L 500.4050, L100.0100 ####[facility] [address] [place], [address] Creatinine [Mass/Vol] 0.42 mg/dL Low 0.70-1.20 [facility] Comment on above: Performed By: #### L 500.4050, L100.0100 ####[facility] [address] [place], [address] ECRCL 141.45 ml/min Normal 50-250 [facility] Comment on above: Performed By: #### L 500.4050, L100.0100 ####[facility] [address] [place], [address] GAP 10 Normal 5-15 [facility] Comment on above: Performed By: #### L 500.4050, L100.0100 ####[facility] [address] [place], [address] GFR/1.73 sq M.predicted among non-blacks MDRD (S/P/Bld) [Vol rate/Area] 121 mL/min/{1.73_m2} Normal >60 [facility] Comment on above: Result Comment: mL/m in/1.73m2 CKD-EPI Creatinine Equation (2020) Performed By: #### L 500.4050, L100.0100 ####[facility] [address] [place], [address] Globulin (S) [Mass/Vol] 2.1 g/dL Low 2.2-4.2 [facility] Comment on above: Performed By: #### L 500.4050, L100.0100 ####[facility] [address] [place], [address] Glucose [Mass/Vol] 93 mg/dL Normal 70-99 [facility] Comment on above: Performed By: #### L 500.4050, L100.0100 ####[facility] [address] [place], [address] Potassium [Moles/Vol] 3.5 mmol/L Normal 3.3-5.1 [facility] Comment on above: Performed By: #### L 500.4050, L100.0100 ####[facility] [address] [place], [address] Sodium [Moles/Vol] 134 mmol/L Normal 133-145 [facility] Comment on above: Performed By: #### L 500.4050, L100.0100 ####[facility] [address] [place], [address] T PROT 5.0 g/dL Low 5.9-8.4 [facility] Comment on above: Performed By: #### L 500.4050, L100.0100 ####[facility] [address] [place], [address] Urea nitrogen [Mass/Vol] 3 mg/dL Low 4-19 [facility] Comment on above: Performed By: #### L 500.4050, L100.0100 ####[facility] [address] [place], [address] Platelet estimateOrdered By: Canelo Myers on 07-19-2025 Platelets LM Ql (Bld) SLT DEC ADEQ [facility] Bedside Glucoseon 07-18-2025 FINGERSTICK GLU 104 mg/dL Normal 74-106 [facility] Comment on above: Result Comment: CHAUNCEY RIZO OF PATIENT CARE PER NURSING PROTOCOL Performed By: #### L 501.080 ####[facility] [address] [place], [address] FINGERSTICK GLU 108 mg/dL High 74-106 [facility] Comment on above: Result Comment: CHAUNCEY GEMENT OF PATIENT CARE PER NURSING PROTOCOL Performed By: #### L 501.080 ####[facility] [address] [place], [address] FINGERSTICK GLU 109 mg/dL High 74-106 [facility] Comment on above: Result Comment: CHAUNCEY GEMENT OF PATIENT CARE PER NURSING PROTOCOL Performed By: #### L 501.080 ####[facility] [address] [place], [address] FINGERSTICK GLU 84 mg/dL Normal 74-106 [facility] Comment on above: Result Comment: CHAUNCEY GEMENT OF PATIENT CARE PER NURSING PROTOCOL Performed By: #### L 501.080 ####[facility] [address] [place], [address] CBC W/Diff, Automatedon 08-2 0-2025 Absolute Lymph 0.64 X10 3/uL Low 0.83-4.51 [facility] Comment on above: Performed By: #### L 500.4050, L501.5200, L501.2300, L100.0100 ####[facility] [address] [place], [address] Absolute Neut 3.3 X10 3/uL Normal 2.0-7.7 [facility] Comment on above: Performed By: #### L 500.4050, L501.5200, L501.2300, L100.0100 ####[facility] [address] [place], [address] Basophils/100 WBC (Bld) 0.4 % Normal 0-[address] [facility] Comment on above: Performed By: #### L 500.4050, L501.5200, L501.2300, L100.0100 ####[facility] [address] [place], [address] Eosinophils/100 WBC (Bld) 2.4 % Normal 0-5 [facility] Comment on above: Performed By: #### L 500.4050, L501.5200, L501.2300, L100.0100 ####[facility] [address] [place], [address] Erythrocyte distribution width (RBC) [Ratio] 15.8 % High 11.6-14.6 [facility] Comment on above: Performed By: #### L 500.4050, L501.5200, L501.2300, L100.0100 ####[facility] [address] [place], [address] Hematocrit (Bld) [Volume fraction] 32.6 % Low 37-47 [facility] Comment on above: Performed By: #### L 500.4050, L501.5200, L501.2300, L100.0100 ####[facility] [address] [place], [address] Hemoglobin (Bld) [Mass/Vol] 10.8 g/dL Low 12.0-15.0 [facility] Comment on above: Performed By: #### L 500.4050, L501.5200, L501.2300, L100.0100 ####[facility] [address] [place], [address] IG% 0.700 Normal 0.0-0.9 [facility] Comment on above: Result Comment: IG% - Immature Granulocytes (promyelocytes, myelocytes andmetamyelocytes) > 1% indicates that a LEFT SHIFT is Present. Performed By: #### L 500.4050, L501.5200, L501.2300, L100.0100 ####[facility] [address] [place], [address] Lymphocytes/100 WBC (Bld) 14.1 % Low 19-41 [facility] Comment on above: Performed By: #### L 500.4050, L501.5200, L501.2300, L100.0100 ####[facility] [address] [place], [address] MCH (RBC) [Entitic mass] 33.9 pg High 27.0-32.0 [facility] Comment on above: Performed By: #### L 500.4050, L501.5200, L501.2300, L100.0100 ####[facility] [address] [place], [address] MCHC (RBC) [Mass/Vol] 33.1 g/dL Normal 32-36 [facility] Comment on above: Performed By: #### L 500.4050, L501.5200, L501.2300, L100.0100 ####[facility] [address] [place], [address] MCV (RBC) [Entitic vol] 102.2 fL High 81-[address] [facility] Comment on above: Performed By: #### L 500.4050, L501.5200, L501.2300, L100.0100 ####[facility] [address] [place], [address] Monocytes/100 WBC (Bld) 9.2 % Normal 0-10 [facility] Comment on above: Performed By: #### L 500.4050, L501.5200, L501.2300, L100.0100 ####[facility] [address] [place], [address] Neutrophils/100 WBC (Bld) 73.2 % High 47-70 [facility] Comment on above: Performed By: #### L 500.4050, L501.5200, L501.2300, L100.0100 ####[facility] [address] [place], [address] Nucleated RBC (Bld) [#/Vol] 0 10*3/uL Normal 0-5 [facility] Comment on above: Performed By: #### L 500.4050, L501.5200, L501.2300, L100.0100 ####[facility] [address] [place], [address] Platelet mean volume (Bld) [Entitic vol] 10.0 fL Normal 6.2-12.0 [facility] Comment on above: Performed By: #### L 500.4050, L501.5200, L501.2300, L100.0100 ####[facility] [address] [place], [address] Platelets (Bld) [#/Vol] 103 10*3/uL Low 150-450 [facility] Comment on above: Performed By: #### L 500.4050, L501.5200, L501.2300, L100.0100 ####[facility] [address] [place], [address] RBC (Bld) [#/Vol] 3.19 10*6/uL Low 4.2-5.4 [facility] Comment on above: Performed By: #### L 500.4050, L501.5200, L501.2300, L100.0100 ####[facility] [address] [place], [address] RDW SD 58.9 fl High 35.1-43.9 [facility] Comment on above: Performed By: #### L 500.4050, L501.5200, L501.2300, L100.0100 ####[facility] [address] [place], [address] WBC (Bld) [#/Vol] 4.6 10*3/uL Normal 4.4-11.0 [facility] Comment on above: Performed By: #### L 500.4050, L501.5200, L501.2300, L100.0100 ####[facility] [address] [place], [address] Comprehensive Metabolic Prof hion 07-18-2025 Albumin [Mass/Vol] 3.3 g/dL Low 3.5-5.0 [facility] Comment on above: Performed By: #### L 500.4050, L501.5200, L501.2300, L100.0100 ####[facility] [address] [place], [address] Albumin/Globulin [Mass ratio] 1.5 {ratio} Normal 0.9-2.4 [facility] Comment on above: Performed By: #### L 500.4050, L501.5200, L501.2300, L100.0100 ####[facility] [address] [place], [address] ALK PHOS 176 U/L High 35-104 [facility] Comment on above: Performed By: #### L 500.4050, L501.5200, L501.2300, L100.0100 ####[facility] [address] [place], [address] ALT [Catalytic activity/Vol] 223 U/L High <=34 [facility] Comment on above: Performed By: #### L 500.4050, L501.5200, L501.2300, L100.0100 ####[facility] [address] [place], [address] AST [Catalytic activity/Vol] 788 U/L High <=31 [facility] Comment on above: Performed By: #### L 500.4050, L501.5200, L501.2300, L100.0100 ####[facility] [address] [place], [address] Bilirubin [Mass/Vol] 1.36 mg/dL High 0.00-1.30 [facility] Comment on above: Performed By: #### L 500.4050, L501.5200, L501.2300, L100.0100 ####[facility] [address] [place], [address] BUN/CRE 16.1 RATIO Normal 10-20 [facility] Comment on above: Performed By: #### L 500.4050, L501.5200, L501.2300, L100.0100 ####[facility] [address] [place], [address] Calcium [Mass/Vol] 7.0 mg/dL Low 7.6-11.0 [facility] Comment on above: Performed By: #### L 500.4050, L501.5200, L501.2300, L100.0100 ####[facility] [address] [place], [address] Chloride [Moles/Vol] 100 mmol/L Normal 98-108 [facility] Comment on above: Performed By: #### L 500.4050, L501.5200, L501.2300, L100.0100 ####[facility] [address] [place], [address] CO2 [Moles/Vol] 24.0 mmol/L Normal 21.0-32.0 [facility] Comment on above: Performed By: #### L 500.4050, L501.5200, L501.2300, L100.0100 ####[facility] [address] [place], [address] Creatinine [Mass/Vol] 0.32 mg/dL Low 0.70-1.20 [facility] Comment on above: Performed By: #### L 500.4050, L501.5200, L501.2300, L100.0100 ####[facility] [address] [place], [address] ECRCL 185.66 ml/min Normal 50-250 [facility] Comment on above: Performed By: #### L 500.4050, L501.5200, L501.2300, L100.0100 ####[facility] [address] [place], [address] GAP 13 Normal 5-15 [facility] Comment on above: Performed By: #### L 500.4050, L501.5200, L501.2300, L100.0100 ####[facility] [address] [place], [address] GFR/1.73 sq M.predicted among non-blacks MDRD (S/P/Bld) [Vol rate/Area] 128 mL/min/{1.73_m2} Normal >60 [facility] Comment on above: Result Comment: mL/m in/1.73m2 CKD-EPI Creatinine Equation (2020) Performed By: #### L 500.4050, L501.5200, L501.2300, L100.0100 ####[facility] [address] [place], [address] Globulin (S) [Mass/Vol] 2.2 g/dL Normal 2.2-4.2 [facility] Comment on above: Performed By: #### L 500.4050, L501.5200, L501.2300, L100.0100 ####[facility] [address] [place], [address] Glucose [Mass/Vol] 76 mg/dL Normal 70-99 [facility] Comment on above: Performed By: #### L 500.4050, L501.5200, L501.2300, L100.0100 ####[facility] [address] [place], [address] Potassium [Moles/Vol] 3.6 mmol/L Normal 3.3-5.1 [facility] Comment on above: Performed By: #### L 500.4050, L501.5200, L501.2300, L100.0100 ####[facility] [address] [place], [address] Sodium [Moles/Vol] 137 mmol/L Normal 133-145 [facility] Comment on above: Performed By: #### L 500.4050, L501.5200, L501.2300, L100.0100 ####[facility] [address] [place], [address] T PROT 5.5 g/dL Low 5.9-8.4 [facility] Comment on above: Performed By: #### L 500.4050, L501.5200, L501.2300, L100.0100 ####[facility] [address] [place], [address] Urea nitrogen [Mass/Vol] 5 mg/dL Normal 4-19 [facility] Comment on above: Performed By: #### L 500.4050, L501.5200, L501.2300, L100.0100 ####[facility] [address] [place], [address] Lipaseon 07-18-2025 Lipase [Catalytic activity/Vol] 1128 U/L High 13-75 [facility] Comment on above: Result Comment: Lucie schultz note:LIPASE revised reference range effective 23.New Lipase methodology. Expected to produce lower valuesthan the previous assay method.NEW Reference Range: 13 - 75 U/L Performed By: #### L 501.2450 ####[facility] [address] [place], [address] Magnesiumon 07-18-2025 Magnesium [Mass/Vol] 1.7 mg/dL Normal 1.5-2.2 [facility] Comment on above: Performed By: #### L 500.4050, L501.5200, L501.2300, L100.0100 ####[facility] [address] [place], [address] Magnesium measurement (mass/ volume)Ordered By: Canelo Myers on 07-18-2025 Magnesium (Unsp spec) [Mass/Vol] 1.7 mg/dL 1.5-2.2 [facility] Phosphoruson 07-18-2025 Phosphate [Mass/Vol] 2.7 mg/dL Normal 2.7-4.5 [facility] Comment on above: Performed By: #### L 500.4050, L501.5200, L501.2300, L100.0100 ####[facility] [address] [place], [address] Abdomen/Pelvis W IV Cont ONL Yon 07-17-2025 Abdomen/Pelvis W IV Cont ONLY Normal [facility] Absolute lymphocyte countOrd ered By: Francisco Colon on 07-17-2025 Lymphocytes Auto (Unsp spec) [#/Vol] 0.78 10*3/uL Low 0.83-4.51 [facility] Alcohol, Blood (Medical)-Ser umon 07-17-2025 SERUM ETOH 34.9 mg/dL High <=10.0 [facility] Comment on above: Result Comment: This test is for medical purposes only. The legaldefinition of intoxication varies according to local law. Performed By: #### L 501.9100 ####[facility] [address] [place], [address] Amylaseon 07-17-2025 VENANCIO 898 U/L High 28-100 [facility] Comment on above: Performed By: #### L 500.4050, L501.2450, L501.2400 ####[facility] [address] [place], [address] Anion gap in Serum or Plasma Ordered By: Francisco Colon on 07-17-2025 Anion gap [Moles/Vol] 19 mmol/L High 5-15 [facility] Automated lymphocyte count a s percentage of total leukocytesOrdered By: Francisco Colon on 07-17-2025 Lymphocytes/100 WBC Auto (Unsp spec) 11.2 % Low 19-41 [facility] BUN/creatinine ratioOrdered By: Francisco Colon on 07-17-2025 Urea nitrogen/Creatinine [Mass ratio] 15.5 mg/mg 10-20 [facility] Basophil percentageOrdered B y: Francisco Colon on 07-17-2025 Basophils/100 WBC (Bld) 0.4 % 0-[address] [facility] Bedside Glucoseon 07-17-2025 FINGERSTICK GLU 151 mg/dL High 74-106 [facility] Comment on above: Result Comment: CHAUNCEY GEMENT OF PATIENT CARE PER NURSING PROTOCOL Performed By: #### L 501.080 ####[facility] [address] [facility] [address] FINGERSTICK GLU 71 mg/dL Low 74-106 [facility] Comment on above: Result Comment: CHAUNCEY GEMENT OF PATIENT CARE PER NURSING PROTOCOL Performed By: #### L 501.080 ####[facility] [address] [facility] [address] Bilirubin Test strip Ql (U)O rdered By: Francisco Colon on 07-17-2025 Bilirubin Ql (U) Negative Negative [facility] Bilirubin, totalOrdered By: Francisco Colon on 07-17-2025 Bilirubin [Mass/Vol] 0.43 mg/dL 0.00-1.30 [facility] CBC W/Diff, Automatedon 06-29 Absolute Lymph 0.78 X10 3/uL Low 0.83-4.51 [facility] Comment on above: Performed By: #### L 100.0100 ####[facility] [address] [place], [address] Absolute Neut 5.6 X10 3/uL Normal 2.0-7.7 [facility] Comment on above: Performed By: #### L 100.0100 ####[facility] [address] [place], [address] Basophils/100 WBC (Bld) 0.4 % Normal 0-[address] [facility] Comment on above: Performed By: #### L 100.0100 ####[facility] [address] [place], [address] Eosinophils/100 WBC (Bld) 0.3 % Normal 0-5 [facility] Comment on above: Performed By: #### L 100.0100 ####[facility] [address] [place], [address] Erythrocyte distribution width (RBC) [Ratio] 15.9 % High 11.6-14.6 [facility] Comment on above: Performed By: #### L 100.0100 ####[facility] [address] [place], [address] Hematocrit (Bld) [Volume fraction] 38.5 % Normal 37-47 [facility] Comment on above: Performed By: #### L 100.0100 ####[facility] [address] [place], [address] Hemoglobin (Bld) [Mass/Vol] 13.2 g/dL Normal 12.0-15.0 [facility] Comment on above: Performed By: #### L 100.0100 ####[facility] [address] [place], [address] IG% 0.600 Normal 0.0-0.9 [facility] Comment on above: Result Comment: IG% - Immature Granulocytes (promyelocytes, myelocytes andmetamyelocytes) > 1% indicates that a LEFT SHIFT is Present. Performed By: #### L 100.0100 ####[facility] [address] [place], [address] Lymphocytes/100 WBC (Bld) 11.2 % Low 19-41 [facility] Comment on above: Performed By: #### L 100.0100 ####[facility] [address] [place], [address] MCH (RBC) [Entitic mass] 33.8 pg High 27.0-32.0 [facility] Comment on above: Performed By: #### L 100.0100 ####[facility] [address] [place], [address] MCHC (RBC) [Mass/Vol] 34.3 g/dL Normal 32-36 [facility] Comment on above: Performed By: #### L 100.0100 ####[facility] [address] [place], [address] MCV (RBC) [Entitic vol] 98.7 fL Normal 81-99 [facility] Comment on above: Performed By: #### L 100.0100 ####[facility] [address] [place], [address] Monocytes/100 WBC (Bld) 7.2 % Normal 0-10 [facility] Comment on above: Performed By: #### L 100.0100 ####[facility] [address] [place], [address] Neutrophils/100 WBC (Bld) 80.3 % High 47-70 [facility] Comment on above: Performed By: #### L 100.0100 ####[facility] [address] [place], [address] Nucleated RBC (Bld) [#/Vol] 0 10*3/uL Normal 0-5 [facility] Comment on above: Performed By: #### L 100.0100 ####[facility] [address] [place], [address] Platelet mean volume (Bld) [Entitic vol] 9.7 fL Normal 6.2-12.0 [facility] Comment on above: Performed By: #### L 100.0100 ####[facility] [address] [place], [address] Platelets (Bld) [#/Vol] 150 10*3/uL Normal 150-450 [facility] Comment on above: Performed By: #### L 100.0100 ####[facility] [address] [place], [address] RBC (Bld) [#/Vol] 3.90 10*6/uL Low 4.2-5.4 [facility] Comment on above: Performed By: #### L 100.0100 ####[facility] [address] [place], [address] RDW SD 56.5 fl High 35.1-43.9 [facility] Comment on above: Performed By: #### L 100.0100 ####[facility] [address] [place], [address] WBC (Bld) [#/Vol] 7.0 10*3/uL Normal 4.4-11.0 [facility] Comment on above: Performed By: #### L 100.0100 ####[facility] [address] [place], [address] Carbon dioxide, total [Moles /volume] in Central venous bloodOrdered By: Francisco Colon on 07-17-2025 CO2 [Moles/Vol] 25.6 mmol/L 21.0-32.0 [facility] Chloride assayOrdered By: Peyman Colon on 07-17-2025 Chloride [Moles/Vol] 99 mmol/L 98-108 [facility] Comprehensive Metabolic Prof ilon 07-17-2025 Albumin [Mass/Vol] 3.9 g/dL Normal 3.5-5.0 [facility] Comment on above: Performed By: #### L 500.4050, L501.2450, L501.2400 ####[facility] [address] [place], [address] Albumin/Globulin [Mass ratio] 1.4 {ratio} Normal 0.9-2.4 [facility] Comment on above: Performed By: #### L 500.4050, L501.2450, L501.2400 ####[facility] [address] [place], [address] ALK PHOS 98 U/L Normal 35-104 [facility] Comment on above: Performed By: #### L 500.4050, L501.2450, L501.2400 ####[facility] [address] [place], [address] ALT [Catalytic activity/Vol] 92 U/L High <=34 [facility] Comment on above: Performed By: #### L 500.4050, L501.2450, L501.2400 ####[facility] [address] [place], [address] AST [Catalytic activity/Vol] 165 U/L High <=31 [facility] Comment on above: Performed By: #### L 500.4050, L501.2450, L501.2400 ####[facility] [address] [place], [address] Bilirubin [Mass/Vol] 0.43 mg/dL Normal 0.00-1.30 [facility] Comment on above: Performed By: #### L 500.4050, L501.2450, L501.2400 ####[facility] [address] [place], [address] BUN/CRE 15.5 RATIO Normal 10-20 [facility] Comment on above: Performed By: #### L 500.4050, L501.2450, L501.2400 ####[facility] [address] [place], [address] Calcium [Mass/Vol] 8.6 mg/dL Normal 7.6-11.0 [facility] Comment on above: Performed By: #### L 500.4050, L501.2450, L501.2400 ####[facility] [address] [place], [address] Chloride [Moles/Vol] 99 mmol/L Normal 98-108 [facility] Comment on above: Performed By: #### L 500.4050, L501.2450, L501.2400 ####[facility] [address] [place], [address] CO2 [Moles/Vol] 25.6 mmol/L Normal 21.0-32.0 [facility] Comment on above: Performed By: #### L 500.4050, L501.2450, L501.2400 ####[facility] [address] [place], [address] Creatinine [Mass/Vol] 0.39 mg/dL Low 0.70-1.20 [facility] Comment on above: Performed By: #### L 500.4050, L501.2450, L501.2400 ####[facility] [address] [place], [address] ECRCL 152.33 ml/min Normal 50-250 [facility] Comment on above: Performed By: #### L 500.4050, L501.2450, L501.2400 ####[facility] [address] [place], [address] GAP 19 High 5-15 [facility] Comment on above: Performed By: #### L 500.4050, L501.2450, L501.2400 ####[facility] [address] [place], [address] GFR/1.73 sq M.predicted among non-blacks MDRD (S/P/Bld) [Vol rate/Area] 123 mL/min/{1.73_m2} Normal >60 [facility] Comment on above: Result Comment: mL/m in/1.73m2 CKD-EPI Creatinine Equation (2020) Performed By: #### L 500.4050, L501.2450, L501.2400 ####[facility] [address] [place], [address] Globulin (S) [Mass/Vol] 2.7 g/dL Normal 2.2-4.[address] [facility] Comment on above: Performed By: #### L 500.4050, L501.2450, L501.2400 ####[facility] [address] [place], [address] Glucose [Mass/Vol] 120 mg/dL High 70-99 [facility] Comment on above: Performed By: #### L 500.4050, L501.2450, L501.2400 ####[facility] [address] [place], [address] Potassium [Moles/Vol] 3.0 mmol/L Low 3.3-5.1 [facility] Comment on above: Performed By: #### L 500.4050, L501.2450, L501.2400 ####[facility] [address] [place], [address] Sodium [Moles/Vol] 144 mmol/L Normal 133-145 [facility] Comment on above: Performed By: #### L 500.4050, L501.2450, L501.2400 ####[facility] [address] [place], [address] T PROT 6.6 g/dL Normal 5.9-8.4 [facility] Comment on above: Performed By: #### L 500.4050, L501.2450, L501.2400 ####[facility] [address] [place], [address] Urea nitrogen [Mass/Vol] 6 mg/dL Normal 4-19 [facility] Comment on above: Performed By: #### L 500.4050, L501.2450, L501.2400 ####[facility] [address] [place], [address] Emergency Department Summary on 07-17-2025 Emergency Department Summary Normal [facility] Eosinophil percentageOrdered By: Francisco Colon on 07-17-2025 Eosinophils/100 WBC (Bld) 0.3 % 0-5 [facility] Erythrocyte distribution wid th ratioOrdered By: Francisco Colon on 07-17-2025 Erythrocyte distribution width (RBC) [Ratio] 15.9 % High 11.6-14.6 [facility] Erythrocyte distribution wid th standard deviationOrdered By: Francisco Colon on 07-17-2025 Erythrocyte distribution width (RBC) [Ratio] 56.5 fl High 35.1-43.9 [facility] Glomerular filtration rate ( GFR) estimation/1.73 sq m using serum, plasma, or whole bOrdered By: Francisco Colon on 07-17-2025 GFR/1.73 sq M.predicted among non-blacks MDRD (S/P/Bld) [Vol rate/Area] 123 mL/min/{1.73_m2} >60 [facility] H AND P Exam - Hospitaliston 07-17-2025 H&P Exam - Hospitalist Normal [facility] Hematocrit Auto (Bld) [Volum e fraction]Ordered By: Francisco Colon on 07-17-2025 Hematocrit (Bld) [Volume fraction] 38.5 % 37-47 [facility] Hemoglobin measurementOrdere d By: Francisco Colon on 07-17-2025 Hemoglobin (Bld) [Mass/Vol] 13.2 g/dL 12.0-15.0 [facility] Immature granulocytes/100 WB C Auto (Bld)Ordered By: Francisco Colon on 07-17-2025 Immature granulocytes/100 WBC (Bld) 0.600 % 0.0-0.9 [facility] Ketones Test strip Ql (U)Ord ered By: Francisco Colon on 07-17-2025 Ketones Ql (U) 5 mg/dl High Negative [facility] Lipaseon 07-17-2025 Lipase [Catalytic activity/Vol] U/L High 13-75 [facility] Comment on above: Result Comment: Plea se note:LIPASE revised reference range effective 23.New Lipase methodology. Expected to produce lower valuesthan the previous assay method.NEW Reference Range: 13 - 75 U/L Performed By: #### L 500.4050, L501.2450, L501.2400 ####[facility] [address] [place], [address] MCV (mean corpuscular volume ) determinationOrdered By: Francisco Colon on 07-17-2025 MCV (RBC) [Entitic vol] 98.7 fL 81-[address] [facility] Magnesiumon 07-17-2025 Magnesium [Mass/Vol] 1.1 mg/dL Low 1.5-2.2 [facility] Comment on above: Performed By: #### L 501.2300, L501.5200 ####[facility] [address] [facility] [place], [place], [address] Mean corpuscular hemoglobin (MCH) determinationOrdered By: Francisco Colon on 07-17-2025 MCH (RBC) [Entitic mass] 33.8 pg High 27.0-32.0 [facility] Monocyte percentageOrdered B y: Francisco Colon on 07-17-2025 Monocytes/100 WBC (Bld) 7.2 % 0-[address] [facility] Mucus LM Ql (Urine sed)Order ed By: Francisco Colon on 07-17-2025 Mucus Ql (Urine sed) 0 SEEN /hpf [facility] Neutrophil percentageOrdered By: Francisco Colon on 07-17-2025 Neutrophils/100 WBC (Bld) 80.3 % High 47-70 [facility] Nitrite Test strip Ql (U)Ord ered By: Francisco Colon on 07-17-2025 Nitrite Ql (U) Negative Negative [facility] No Panel InformationOrdered By: Francisco Colon on 07-17-2025 165 U/L High <32 [facility] Phosphoruson 07-17-2025 Phosphate [Mass/Vol] 4.4 mg/dL Normal 2.7-4.5 [facility] Comment on above: Performed By: #### L 501.2300, L501.5200 ####[facility] [address] [place], [address] Platelet countOrdered By: Peyman Colon on 07-17-2025 Platelets (Bld) [#/Vol] 150 10*3/uL 150-450 [facility] Potassium measurement (mass/ volume)Ordered By: Francisco Colon on 07-17-2025 Potassium (Unsp spec) [Mass/Vol] 3.0 mmol/L Low 3.3-5.1 [facility] ,Serum,hCG Quali.on 07-17-2025 HCG, SERUM QUAL Negative Normal [facility] Comment on above: Performed By: #### L 700.6800 ####[facility] [address] [place], [address] Protein Test strip Ql (U)Ord ered By: Francisco Colon on 07-17-2025 Protein Ql (U) 30 mg/dl High Negative [facility] Prothrombin Time w/INRon INR Coag (PPP) [Relative time] 1.0 {INR} Normal [facility] Comment on above: Performed By: #### L 300.3900 ####[facility] [address] [place], [address] PT Coag (PPP) [Time] 12.9 s Normal 11.7-14.9 [facility] Comment on above: Performed By: #### L 300.3900 ####[facility] [address] [place], [address] Prothrombin timeOrdered By: Canelo Myers on 07-17-2025 PT Coag (PPP) [Time] 12.9 s 11.7-14.9 [facility] RBC Auto (Bld) [#/Vol]Ordere d By: Francisco Colon on 07-17-2025 RBC (Bld) [#/Vol] 3.90 10*6/uL Low 4.2-5.4 [facility] Serum beta-hCG test, qualita tiveOrdered By: Francisco Colon on 07-17-2025 Beta HCG ( test) Ql Negative [facility] Serum creatinine measurement (mass/volume)Ordered By: Francisco Colon on 07-17-2025 Creatinine [Mass/Vol] 0.39 mg/dL Low 0.70-1.20 [facility] Serum globulin measurementOr dered By: Francisco Colon on 07-17-2025 Globulin (S) [Mass/Vol] 2.7 g/dL 2.2-4.[address] [facility] Serum glucose measurement (m ass/volume)Ordered By: Francisco Colon on 07-17-2025 Glucose [Mass/Vol] 120 mg/dL High 70-99 [facility] Serum or plasma alanine wilkerson otransferase (ALT) measurementOrdered By: Francisco Colon on 07-17-2025 ALT [Catalytic activity/Vol] 92 U/L High <35 [facility] Serum or plasma albumin alphonso urement (mass/volume)Ordered By: Francisco Colon on 07-17-2025 Albumin [Mass/Vol] 3.9 g/dL 3.5-5.0 [facility] Serum or plasma albumin/glob ulin mass ratioOrdered By: Francisco Colon on 07-17-2025 Albumin/Globulin [Mass ratio] 1.4 {ratio} 0.9-2.4 [facility] Serum or plasma alkaline trinity sphatase measurementOrdered By: Francisco Colon on 07-17-2025 ALP [Catalytic activity/Vol] 98 U/L 35-104 [facility] Serum or plasma amylase alphonso urement (enzymatic activity/volume)Ordered By: Francisco Colon on 07-17-2025 Amylase [Catalytic activity/Vol] 898 U/L High 28-100 [facility] Serum or plasma calcium alphonso urement (mass/volume)Ordered By: Francisco Colon on 07-17-2025 Calcium [Mass/Vol] 8.6 mg/dL 7.6-11.0 [facility] Serum or plasma ethanol alphonso urement (mass/volume)Ordered By: Francisco Colon on 07-17-2025 Ethanol [Mass/Vol] 34.9 mg/dL High <10.1 [facility] Serum or plasma urea nitroge n measurement (mass/volume)Ordered By: Francisco Colon on 07-17-2025 Urea nitrogen [Mass/Vol] 6 mg/dL 4-19 [facility] Sodium levelOrdered By: Francisco Colon on 07-17-2025 Sodium [Moles/Vol] 144 mmol/L 133-145 [facility] Squamous epithelial cells de tection in urine sediment by light microscopyOrdered By: Francisco Colon on 07-17-2025 Epithelial cells.squamous LM Ql (Urine sed) 0-5 SEEN /hpf 5-10 [facility] Total proteinOrdered By: Rommel Colon on 07-17-2025 Protein [Mass/Vol] 6.6 g/dL 5.9-8.4 [facility] Urinalysis, Completeon 07-17 EPI,SQUAMOUS 0-5 SEEN Normal 5-10 [facility] Comment on above: Order Comment: CLEAN CATCH Performed By: #### L 400.0001 ####[facility] [address] [facility] [address] BACTERIA 0 SEEN Normal None Seen [facility] Comment on above: Order Comment: CLEAN CATCH Performed By: #### L 400.0001 ####[facility] [address] [place], [address] Mucus Ql (Urine sed) 0 SEEN Normal [facility] Comment on above: Order Comment: CLEAN CATCH Performed By: #### L 400.0001 ####[facility] [address] [place], [address] RBC 0 SEEN Normal 0-5 [facility] Comment on above: Order Comment: CLEAN CATCH Performed By: #### L 400.0001 ####[facility] [address] [place], [address] WBC 0 SEEN Normal 0-5 [facility] Comment on above: Order Comment: CLEAN CATCH Performed By: #### L 400.0001 ####[facility] [address] [place], [address] Urine clarityOrdered By: Rommel Colon on 07-17-2025 Clarity (U) Clear Clear [facility] Urine color determinationOrd ered By: Francisco Colon on 07-17-2025 Color (U) Yellow Yellow [facility] Urine glucose detectionOrder ed By: Francisco Colon on 07-17-2025 Glucose Ql (U) Normal mg/dl Normal [facility] Urine leukocyte esterase det ection by dipstickOrdered By: Francisco Colon on 07-17-2025 Leukocyte esterase Test strip Ql (U) 25 /ul High Negative [facility] Urine pHOrdered By: Francisco stuart on 07-17-2025 pH (U) 6.5 [pH] 5.0 - 8.0 [facility] Urine sediment bacteria coun t by microscopy (number/high power field)Ordered By: Francisco Colon on 07-17-2025 Bacteria LM.HPF (Urine sed) [#/Area] 0 /[HPF] None Seen [facility] Urine specific gravity measu rementOrdered By: Francisco Colon on 07-17-2025 Specific gravity (U) [Rel density] 1.010 1.002-1.030 [facility] Urine urobilinogen measureme ntOrdered By: Francisco Colon on 07-17-2025 Urobilinogen Ql (U) Normal mg/dl Normal [facility] White blood cell (WBC) count Ordered By: Francisco Colon on 07-17-2025 WBC (Bld) [#/Vol] 7.0 10*3/uL 4.4-11.0 [facility] White blood cell countOrdere d By: Francisco Colon on 07-17-2025 White blood cell count 0 SEEN /hpf 0-[address] [facility] Bedside Glucoseon 05-28-2025 FINGERSTICK GLU 259 mg/dL High 74-106 [facility] Comment on above: Result Comment: CHAUNCEY GEMENT OF PATIENT CARE PER NURSING PROTOCOL Performed By: #### L 501.080 ####[facility] [address] [place], [place], [address] FINGERSTICK GLU 164 mg/dL High [address] [facility] Comment on above: Result Comment: CHAUNCEY GEMENT OF PATIENT CARE PER NURSING PROTOCOL Performed By: #### L 501.080 ####[facility] [facility] [address] [place], [place], [id number] Discharge Instructionon 05-01 Discharge Instruction Normal [facility] deOrdered By: Mao Becker on 05-28-2025 Glucose [Mass/Vol] 259 mg/dL High 74-106 [facility] Comment on above: MANAGEMENT OF PATIEN T CARE PER NURSING PROTOCOL Bedside Glucoseon 05-27-2025 FINGERSTICK GLU 217 mg/dL High 74-106 [facility] Comment on above: Result Comment: CHAUNCEY GEMENT OF PATIENT CARE PER NURSING PROTOCOL Performed By: #### L 501.080 ####[facility] [address] [facility] [address] FINGERSTICK GLU 179 mg/dL High 74-106 [facility] Comment on above: Result Comment: CHAUNCEY GEMENT OF PATIENT CARE PER NURSING PROTOCOL Performed By: #### L 501.080 ####[facility] [address] [place], [address] FINGERSTICK GLU 246 mg/dL High 74-106 [facility] Comment on above: Result Comment: CHAUNCEY GEMENT OF PATIENT CARE PER NURSING PROTOCOL Performed By: #### L 501.080 ####[facility] [address] [place], [address] FINGERSTICK GLU 133 mg/dL High -106 [facility] Comment on above: Result Comment: CHAUNCEY GEMENT OF PATIENT CARE PER NURSING PROTOCOL Performed By: #### L 501.080 ####[facility] [address] [place], [address] Magnesiumon 05-27-2025 Magnesium [Mass/Vol] 1.7 mg/dL Normal 1.5-2.2 [facility] Comment on above: Performed By: #### L 501.5200 ####[facility] [address] [place], [address] Magnesium measurement (mass/ volume)Ordered By: Mao Becker on 05-27-2025 Magnesium (Unsp spec) [Mass/Vol] 1.7 mg/dL 1.5-2.2 [facility] Bedside Glucoseon 05-26-2025 FINGERSTICK GLU 243 mg/dL High 74-106 [facility] Comment on above: Result Comment: CHAUNCEY GEMENT OF PATIENT CARE PER NURSING PROTOCOL Performed By: #### L 501.080 ####[facility] [address] [place], [address] FINGERSTICK GLU 221 mg/dL High 74-106 [facility] Comment on above: Result Comment: CHAUNCEY GEMENT OF PATIENT CARE PER NURSING PROTOCOL Performed By: #### L 501.080 ####[facility] [address] [place], [address] FINGERSTICK GLU 293 mg/dL High 74-106 [facility] Comment on above: Result Comment: CHAUNCEY GEMENT OF PATIENT CARE PER NURSING PROTOCOL Performed By: #### L 501.080 ####[facility] [address] [place], [address] FINGERSTICK GLU 119 mg/dL High -106 [facility] Comment on above: Result Comment: CHAUNCEY GEMENT OF PATIENT CARE PER NURSING PROTOCOL Performed By: #### L 501.080 ####[facility] [address] [place], [address] Magnesiumon 05-26-2025 Magnesium [Mass/Vol] 1.3 mg/dL Low 1.5-2.2 [facility] Comment on above: Performed By: #### L 501.5200 ####[facility] [address] [place], [address] Alcohol, Blood (Medical)-Ser umon 05-25-2025 SERUM ETOH 312.0 mg/dL Invalid Interpretation Code <=10.0 [facility] Comment on above: Result Comment: Crit ical Result(s) Called at 0100: by: NBURNS TO LSPARR??Results read back by same.This test is for medical purposes only. The legaldefinition of intoxication varies according to local law. Performed By: #### L 505.5000, L100.0100, L501.9100, L700.6800, L500.4050 ####[facility] [address] [place], [address] Bedside Glucoseon 05-25-2025 FINGERSTICK GLU 182 mg/dL High [facility]106 [facility] Comment on above: Result Comment: CHAUNCEY GEMENT OF PATIENT CARE PER NURSING PROTOCOL Performed By: #### L 501.080 ####[facility] [address] [place], [address] FINGERSTICK GLU 187 mg/dL High [facility]106 [facility] Comment on above: Result Comment: CHAUNCEY GEMENT OF PATIENT CARE PER NURSING PROTOCOL Performed By: #### L 501.080 ####[facility] [address] [place], [address] FINGERSTICK GLU 220 mg/dL High [facility]106 [facility] Comment on above: Result Comment: CHAUNCEY GEMENT OF PATIENT CARE PER NURSING PROTOCOL Performed By: #### L 501.080 ####[facility] [address] [place], [address] FINGERSTICK GLU 179 mg/dL High [address] [place] [address] Comment on above: Result Comment: CHAUNCEY GEMENT OF PATIENT CARE PER NURSING PROTOCOL Performed By: #### L 501.080 ####[facility] [address] [place], [address] CBC W/Diff, Automatedon 06- Absolute Lymph 3.57 X10 3/uL Normal 0.83-4.51 [facility] Comment on above: Performed By: #### L 505.5000, L100.0100, L501.9100, L700.6800, L500.4050 ####[facility] [address] [place], [address] Absolute Neut 4.3 X10 3/uL Normal 2.0-7.7 [facility] Comment on above: Performed By: #### L 505.5000, L100.0100, L501.9100, L700.6800, L500.4050 ####[facility] [address] [place], [address] Basophils/100 WBC (Bld) 0.5 % Normal 0-[address] [facility] Comment on above: Performed By: #### L 505.5000, L100.0100, L501.9100, L700.6800, L500.4050 ####[facility] [address] [place], [address] Eosinophils/100 WBC (Bld) 0.7 % Normal 0-5 [facility] Comment on above: Performed By: #### L 505.5000, L100.0100, L501.9100, L700.6800, L500.4050 ####[facility] [address] [place], [address] Erythrocyte distribution width (RBC) [Ratio] 13.1 % Normal 11.6-14.6 [facility] Comment on above: Performed By: #### L 505.5000, L100.0100, L501.9100, L700.6800, L500.4050 ####[facility] [address] [place], [address] Hematocrit (Bld) [Volume fraction] 38.3 % Normal 37-47 [facility] Comment on above: Performed By: #### L 505.5000, L100.0100, L501.9100, L700.6800, L500.4050 ####[facility] [address] [place], [address] Hemoglobin (Bld) [Mass/Vol] 13.2 g/dL Normal 12.0-15.0 [facility] Comment on above: Performed By: #### L 505.5000, L100.0100, L501.9100, L700.6800, L500.4050 ####[facility] [address] [place], [address] IG% 0.100 Normal 0.0-0.9 [facility] Comment on above: Result Comment: IG% - Immature Granulocytes (promyelocytes, myelocytes andmetamyelocytes) > 1% indicates that a LEFT SHIFT is Present. Performed By: #### L 505.5000, L100.0100, L501.9100, L700.6800, L500.4050 ####[facility] [address] [place], [address] Lymphocytes/100 WBC (Bld) 41.1 % High 19-41 [facility] Comment on above: Performed By: #### L 505.5000, L100.0100, L501.9100, L700.6800, L500.4050 ####[facility] [address] [place], [address] MCH (RBC) [Entitic mass] 34.6 pg High 27.0-32.0 [facility] Comment on above: Performed By: #### L 505.5000, L100.0100, L501.9100, L700.6800, L500.4050 ####[facility] [address] [place], [address] MCHC (RBC) [Mass/Vol] 34.5 g/dL Normal 32-36 [facility] Comment on above: Performed By: #### L 505.5000, L100.0100, L501.9100, L700.6800, L500.4050 ####[facility] [address] [place], [address] MCV (RBC) [Entitic vol] 100.3 fL High 81-[address] [facility] Comment on above: Performed By: #### L 505.5000, L100.0100, L501.9100, L700.6800, L500.4050 ####[facility] [address] [place], [address] Monocytes/100 WBC (Bld) 7.7 % Normal 0-[address] [facility] Comment on above: Performed By: #### L 505.5000, L100.0100, L501.9100, L700.6800, L500.4050 ####[facility] [address] [place], [address] Neutrophils/100 WBC (Bld) 49.9 % Normal 47-70 [facility] Comment on above: Performed By: #### L 505.5000, L100.0100, L501.9100, L700.6800, L500.4050 ####[facility] [address] [place], [address] Nucleated RBC (Bld) [#/Vol] 0 10*3/uL Normal 0-5 [facility] Comment on above: Performed By: #### L 505.5000, L100.0100, L501.9100, L700.6800, L500.4050 ####[facility] [address] [place], [address] Platelet mean volume (Bld) [Entitic vol] 10.0 fL Normal 6.2-12.0 [facility] Comment on above: Performed By: #### L 505.5000, L100.0100, L501.9100, L700.6800, L500.4050 ####[facility] [address] [place], [address] Platelets (Bld) [#/Vol] 187 10*3/uL Normal 150-450 [facility] Comment on above: Performed By: #### L 505.5000, L100.0100, L501.9100, L700.6800, L500.4050 ####[facility] [address] [place], [address] RBC (Bld) [#/Vol] 3.82 10*6/uL Low 4.2-5.4 [facility] Comment on above: Performed By: #### L 505.5000, L100.0100, L501.9100, L700.6800, L500.4050 ####[facility] [address] [place], [address] RDW SD 47.9 fl High 35.1-43.9 [facility] Comment on above: Performed By: #### L 505.5000, L100.0100, L501.9100, L700.6800, L500.4050 ####[facility] [address] [place], [address] WBC (Bld) [#/Vol] 8.7 10*3/uL Normal 4.4-11.0 [facility] Comment on above: Performed By: #### L 505.5000, L100.0100, L501.9100, L700.6800, L500.4050 ####[facility] [address] [place], [address] Comprehensive Metabolic Prof [facility] 05-25-2025 Albumin [Mass/Vol] 4.1 g/dL Normal 3.5-5.0 [facility] Comment on above: Performed By: #### L 505.5000, L100.0100, L501.9100, L700.6800, L500.4050 ####[facility] [address] [place], [address] Albumin/Globulin [Mass ratio] 1.2 {ratio} Normal 0.9-2.4 [facility] Comment on above: Performed By: #### L 505.5000, L100.0100, L501.9100, L700.6800, L500.4050 ####[facility] [address] [place], [address] ALK PHOS 115 U/L High 35-104 [facility] Comment on above: Performed By: #### L 505.5000, L100.0100, L501.9100, L700.6800, L500.4050 ####[facility] [address] [place], [address] ALT [Catalytic activity/Vol] 29 U/L Normal <=34 [facility] Comment on above: Performed By: #### L 505.5000, L100.0100, L501.9100, L700.6800, L500.4050 ####[facility] [address] [place], [address] AST [Catalytic activity/Vol] 45 U/L High <=31 [facility] Comment on above: Result Comment: Hemo lysis present, Results??could be affected.?? Performed By: #### L 505.5000, L100.0100, L501.9100, L700.6800, L500.4050 ####[facility] [address] [place], [address] Bilirubin [Mass/Vol] 0.37 mg/dL Normal 0.00-1.30 [facility] Comment on above: Performed By: #### L 505.5000, L100.0100, L501.9100, L700.6800, L500.4050 ####[facility] [address] [place], [address] BUN/CRE 11.4 RATIO Normal 10-20 [facility] Comment on above: Performed By: #### L 505.5000, L100.0100, L501.9100, L700.6800, L500.4050 ####[facility] [address] [place], [address] Calcium [Mass/Vol] 8.7 mg/dL Normal 7.6-11.0 [facility] Comment on above: Performed By: #### L 505.5000, L100.0100, L501.9100, L700.6800, L500.4050 ####[facility] [address] [place], [address] Chloride [Moles/Vol] 98 mmol/L Normal 98-108 [facility] Comment on above: Performed By: #### L 505.5000, L100.0100, L501.9100, L700.6800, L500.4050 ####[facility] [address] [place], [address] CO2 [Moles/Vol] 20.9 mmol/L Low 21.0-32.0 [facility] Comment on above: Performed By: #### L 505.5000, L100.0100, L501.9100, L700.6800, L500.4050 ####[facility] [address] [place], [address] Creatinine [Mass/Vol] 0.72 mg/dL Normal 0.70-1.20 [facility] Comment on above: Performed By: #### L 505.5000, L100.0100, L501.9100, L700.6800, L500.4050 ####[facility] [address] [place], [address] ECRCL 82.51 ml/min Normal 50-250 [facility] Comment on above: Performed By: #### L 505.5000, L100.0100, L501.9100, L700.6800, L500.4050 ####[facility] [address] [place], [address] GAP 21 High 5-15 [facility] Comment on above: Performed By: #### L 505.5000, L100.0100, L501.9100, L700.6800, L500.4050 ####[facility] [address] [place], [address] GFR/1.73 sq M.predicted among non-blacks MDRD (S/P/Bld) [Vol rate/Area] 104 mL/min/{1.73_m2} Normal >60 [facility] Comment on above: Result Comment: mL/m in/1.73m2 CKD-EPI Creatinine Equation (2020) Performed By: #### L 505.5000, L100.0100, L501.9100, L700.6800, L500.4050 ####[facility] [address] [place], [address] Globulin (S) [Mass/Vol] 3.4 g/dL Normal 2.2-4.2 [facility] Comment on above: Performed By: #### L 505.5000, L100.0100, L501.9100, L700.6800, L500.4050 ####[facility] [address] [place], [address] Glucose [Mass/Vol] 84 mg/dL Normal 70-99 [facility] Comment on above: Performed By: #### L 505.5000, L100.0100, L501.9100, L700.6800, L500.4050 ####[facility] [address] [place], [address] Potassium [Moles/Vol] 4.1 mmol/L Normal 3.3-5.1 [facility] Comment on above: Result Comment: Hemo lysis present, Results??could be affected.?? Performed By: #### L 505.5000, L100.0100, L501.9100, L700.6800, L500.4050 ####[facility] [address] [place], [address] Sodium [Moles/Vol] 140 mmol/L Normal 133-145 [facility] Comment on above: Performed By: #### L 505.5000, L100.0100, L501.9100, L700.6800, L500.4050 ####[facility] [address] [place], [address] T PROT 7.5 g/dL Normal 5.9-8.4 [facility] Comment on above: Performed By: #### L 505.5000, L100.0100, L501.9100, L700.6800, L500.4050 ####[facility] [address] [place], [address] Urea nitrogen [Mass/Vol] 8 mg/dL Normal 4-19 [facility] Comment on above: Performed By: #### L 505.5000, L100.0100, L501.9100, L700.6800, L500.4050 ####[facility] [address] [place], [address] Emergency Department Summary on 05-25-2025 Emergency Department Summary Normal [facility] H AND P Exam - Hospitaliston 05-25-2025 H&P Exam - Hospitalist Normal [facility] Magnesiumon 05-25-2025 Magnesium [Mass/Vol] 1.6 mg/dL Normal 1.5-2.2 [facility] Comment on above: Performed By: #### L 501.5200 ####[facility] [address] [place], [address] Magnesium [Mass/Vol] 1.1 mg/dL Low 1.5-2.2 [facility] Comment on above: Order Comment: Comme nts: May add to ED labsComments: may add to ED labs Performed By: #### L 501.2300, L501.5200 ####[facility] [address] [place], [address] Magnesium measurement (mass/ volume)Ordered By: Myra Null on 05-25-2025 Magnesium (Unsp spec) [Mass/Vol] 1.1 mg/dL Low 1.5-2.2 [facility] Phosphoruson 05-25-2025 Phosphate [Mass/Vol] 4.5 mg/dL Normal 2.7-4.5 [facility] Comment on above: Order Comment: Comme nts: May add to ED labsComments: may add to ED labs Performed By: #### L 501.2300, L501.5200 ####[facility] [address] [place], [address] ,Serum,hCG Quali.on 05-25-2025 HCG, SERUM QUAL Negative Normal [facility] Comment on above: Performed By: #### L 505.5000, L100.0100, L501.9100, L700.6800, L500.4050 ####[facility] [address] [place], [address] Urinalysis, Completeon 05-25 EPI,SQUAMOUS 5-10 SEEN Normal 5-10 [facility] Comment on above: Order Comment: CLEAN CATCH Performed By: #### L 400.0001 ####[facility] [address] [place], [address] RBC 0-5 SEEN Normal 0-5 [facility] Comment on above: Order Comment: CLEAN CATCH Performed By: #### L 400.0001 ####[facility] [address] [place], [address] WBC 0-5 SEEN Normal 0-5 [facility] Comment on above: Order Comment: CLEAN CATCH Performed By: #### L 400.0001 ####[facility] [address] [place], [address] BACTERIA 0 SEEN Normal None Seen [facility] Comment on above: Order Comment: CLEAN CATCH Performed By: #### L 400.0001 ####[facility] [address] [place], [address] Mucus Ql (Urine sed) 0 SEEN Normal [facility] Comment on above: Order Comment: CLEAN CATCH Performed By: #### L 400.0001 ####[facility] [address] [place], [address] Urine Drug Screen (VISTA)on 05-25-2025 AMPHETAMINES Negative Normal <1000 ng/mL [facility] Comment on above: Performed By: #### L 505.5000, L100.0100, L501.9100, L700.6800, L500.4050 ####[facility] [address] [place], [address] BARBITIURATES Positive Normal < 200 ng/mL [facility] Comment on above: Result Comment: If c onfirmation testing is needed, a separate order will berequired to send out testing to the reference laboratory. Performed By: #### L 505.5000, L100.0100, L501.9100, L700.6800, L500.4050 ####[facility] [address] [place], [address] BENZODIAZIPINE Positive Normal < 200 ng/mL [facility] Comment on above: Result Comment: If c onfirmation testing is needed, a separate order will berequired to send out testing to the reference laboratory. Performed By: #### L 505.5000, L100.0100, L501.9100, L700.6800, L500.4050 ####[facility] [address] [place], [address] BUP Ur Drug Scr Negative Normal < 200 ng/mL [facility] Comment on above: Performed By: #### L 505.5000, L100.0100, L501.9100, L700.6800, L500.4050 ####[facility] [address] [place], [address] COCAINE Negative Normal < 300 ng/mL [facility] Comment on above: Performed By: #### L 505.5000, L100.0100, L501.9100, L700.6800, L500.4050 ####[facility] [address] [place], [address] Fentanyl Negative Normal [facility] Comment on above: Performed By: #### L 505.5000, L100.0100, L501.9100, L700.6800, L500.4050 ####[facility] [address] [place], [address] METHADONE Negative Normal < 300 ng/mL [facility] Comment on above: Performed By: #### L 505.5000, L100.0100, L501.9100, L700.6800, L500.4050 ####[facility] [address] [place], [address] OPIATES Negative Normal < 300 ng/mL [facility] Comment on above: Performed By: #### L 505.5000, L100.0100, L501.9100, L700.6800, L500.4050 ####[facility] [address] [place], [address] OXYCODONE Negative Normal < 100 ng/mL [facility] Comment on above: Performed By: #### L 505.5000, L100.0100, L501.9100, L700.6800, L500.4050 ####[facility] [address] [place], [place], [phone] PCP Negative Normal < 25 ng/mL [facility] Comment on above: Performed By: #### L 505.5000, L100.0100, L501.9100, L700.6800, L500.4050 ####[facility] [address] [place], [address] THC Negative Normal < 50 ng/mL [facility] Comment on above: Performed By: #### L 505.5000, L100.0100, L501.9100, L700.6800, L500.4050 ####[facility] [address] [place], [address] Absolute lymphocyte countOrd ered By: Andrew Maurice on 05-24-2025 Lymphocytes Auto (Unsp spec) [#/Vol] 3.57 10*3/uL 0.83-4.51 [facility] Absolute neutrophil countOrd ered By: Andrew Maurice on 05-24-2025 Neutrophils (Bld) [#/Vol] 4.3 10*3/uL 2.0-7.7 [facility] Amphetamine detection with 1 000 ng/mL as cutoffOrdered By: Andrewmark Maurice on 05-24-2025 Amphetamines Screen method >1000 ng/mL Ql (U) Negative <1000 ng/mL [facility] Amphetamines Screen method >1000 ng/mL Ql (U) Positive < 200 ng/mL [facility] Comment on above: If confirmation test ing is needed, a separate order will be required to send out testing to the reference laboratory. Anion gap in Serum or Plasma Ordered By: Andrew Maurice on 05-24-2025 Anion gap [Moles/Vol] 21 mmol/L High 5-15 [facility] Automated lymphocyte count a s percentage of total leukocytesOrdered By: Andrew Maurice on 05-24-2025 Lymphocytes/100 WBC Auto (Unsp spec) 41.1 % High 19-41 [facility] BUN/creatinine ratioOrdered By: Andrew Maurice on 05-24-2025 Urea nitrogen/Creatinine [Mass ratio] 11.4 mg/mg 10-20 [facility] Basophil percentageOrdered B y: Andrew Maurice on 05-24-2025 Basophils/100 WBC (Bld) 0.5 % 0-[address] [facility] Bilirubin Test strip Ql (U)O rdered By: Andrew Maurice on 05-24-2025 Bilirubin Ql (U) Negative Negative [facility] Bilirubin, totalOrdered By: Andrew Maurice on 05-24-2025 Bilirubin [Mass/Vol] 0.37 mg/dL 0.00-1.30 [facility] Carbon dioxide, total [Moles /volume] in Central venous bloodOrdered By: Andrew Maurice on 05-24-2025 CO2 [Moles/Vol] 20.9 mmol/L Low 21.0-32.0 [facility] Chloride assayOrdered By: Yusef Maurice on 05-24-2025 Chloride [Moles/Vol] 98 mmol/L 98-108 [facility] Eosinophil percentageOrdered By: Andrew Maurice on 05-24-2025 Eosinophils/100 WBC (Bld) 0.7 % 0-5 [facility] Erythrocyte distribution wid th ratioOrdered By: Andrew Maurice on 05-24-2025 Erythrocyte distribution width (RBC) [Ratio] 13.1 % 11.6-14.6 [facility] Erythrocyte distribution wid th standard deviationOrdered By: Andrew Small on 05-24-2025 Erythrocyte distribution width (RBC) [Ratio] 47.9 fl High 35.1-43.9 [facility] Glomerular filtration rate ( GFR) estimation/1.73 sq m using serum, plasma, or whole bOrdered By: Andrew Maurice on 05-24-2025 GFR/1.73 sq M.predicted among non-blacks MDRD (S/P/Bld) [Vol rate/Area] 104 mL/min/{1.73_m2} >60 [facility] Comment on above: mL/min/1.73m2 CKD-EP I Creatinine Equation (2020) Hematocrit Auto (Bld) [Volum e fraction]Ordered By: Andrew Maurice on 05-24-2025 Hematocrit (Bld) [Volume fraction] 38.3 % 37-47 [facility] Hemoglobin measurementOrdere d By: Andrew Maurice on 05-24-2025 Hemoglobin (Bld) [Mass/Vol] 13.2 g/dL 12.0-15.0 [facility] Immature granulocytes/100 WB C Auto (Bld)Ordered By: Andrew Maurice on 05-24-2025 Immature granulocytes/100 WBC (Bld) 0.100 % 0.0-0.9 [facility] Comment on above: IG% - Immature Granu locytes (promyelocytes, myelocytes and metamyelocytes) > 1% indicates that a LEFT SHIFT is Present. Ketones Test strip Ql (U)Ord ered By: Andrew Maurice on 05-24-2025 Ketones Ql (U) 5 mg/dl High Negative [facility] Laboratory - Chemistry and C hemistry - challengeOrdered By: Andrew Maurice on 05-24-2025 AST [Catalytic activity/Vol] 45 U/L High <32 [facility] Comment on above: Hemolysis present, R esults could be affected. MCV (mean corpuscular volume ) determinationOrdered By: Andrew Maurice on 05-24-2025 MCV (RBC) [Entitic vol] 100.3 fL High 81-[address] [facility] Mean corpuscular hemoglobin (MCH) determinationOrdered By: Andrew Maurice on 05-24-2025 MCH (RBC) [Entitic mass] 34.6 pg High 27.0-32.0 [facility] Mean corpuscular hemoglobin concentration (MCHC) determinationOrdered By: Andrew Maurice on 05-24-2025 MCHC (RBC) [Mass/Vol] 34.5 g/dL 32-36 [facility] Mean platelet volume determi nationOrdered By: Andrew Maurice on 05-24-2025 Platelet mean volume (Bld) [Entitic vol] 10.0 fL 6.2-12.0 [facility] Microscopic analysis of urin e for red blood cells (RBC)Ordered By: Andrew Maurice on 05-24-2025 Microscopic analysis of urine for red blood cells (RBC) 0-5 SEEN /hpf 0-5 [facility] Monocyte percentageOrdered B y: Andrew Maurice on 05-24-2025 Monocytes/100 WBC (Bld) 7.7 % 0-[address] [facility] Mucus LM Ql (Urine sed)Order ed By: Andrew Maurice on 06-26-2025 Mucus Ql (Urine sed) 0 SEEN /hpf [facility] Neutrophil percentageOrdered By: Andrew Maurice on 05-24-2025 Neutrophils/100 WBC (Bld) 49.9 % 47-70 [facility] Nitrite Test strip Ql (U)Ord ered By: Andrew Maurice on 05-24-2025 Nitrite Ql (U) Negative Negative [facility] No Panel InformationOrdered By: Andrew Maurice on 05-24-2025 Urine Buprenorphine Qualitative Negative < 200 ng/mL [facility] Urine Oxycodone Screen Negative < 100 ng/mL [facility] 45 U/L High <32 [facility] Negative < 200 ng/mL [facility] Nucleated red blood cell per centageOrdered By: Andrew Maurice on 05-24-2025 Nucleated RBC/100 WBC (Bld) [Ratio] 0 % 0-5 [facility] Platelet countOrdered By: Yusef Maurice on 05-24-2025 Platelets (Bld) [#/Vol] 187 10*3/uL 150-450 [facility] Potassium measurement (mass/ volume)Ordered By: Andrew Maurice on 05-24-2025 Potassium (Unsp spec) [Mass/Vol] 4.1 mmol/L 3.3-5.1 [facility] Comment on above: Hemolysis present, R esults could be affected. Protein Test strip Ql (U)Ord ered By: Andrew Maurice on 05-24-2025 Protein Ql (U) 30 mg/dl High Negative [facility] Quantitative urine opiates m easurementOrdered By: Andrew Maurice on 05-24-2025 Opiates Ql (U) Negative < 300 ng/mL [facility] RBC Auto (Bld) [#/Vol]Ordere d By: Andrew Maurice on 05-24-2025 RBC (Bld) [#/Vol] 3.82 10*6/uL Low 4.2-5.4 [facility] Screening urine fentanyl alexis surementOrdered By: Andrew Maurice on 05-24-2025 fentaNYL Screen Ql (U) Negative [facility] Serum beta-hCG test, qualita tiveOrdered By: Andrew Maurice on 05-24-2025 Beta HCG ( test) Ql Negative [facility] Serum creatinine measurement (mass/volume)Ordered By: Andrew Maurice on 05-24-2025 Creatinine [Mass/Vol] 0.72 mg/dL 0.70-1.20 [facility] Serum globulin measurementOr dered By: Andrew Maurice on 05-24-2025 Globulin (S) [Mass/Vol] 3.4 g/dL 2.2-4.[address] [facility] Serum glucose measurement (m ass/volume)Ordered By: Andrew Maurice on 05-24-2025 Glucose [Mass/Vol] 84 mg/dL 70-99 [facility] Serum or plasma alanine wilkerson otransferase (ALT) measurementOrdered By: Andrew Maurice on 05-24-2025 ALT [Catalytic activity/Vol] 29 U/L <35 [facility] Serum or plasma albumin alphonso urement (mass/volume)Ordered By: Andrew Small on 05-24-2025 Albumin [Mass/Vol] 4.1 g/dL 3.5-5.0 [facility] Serum or plasma albumin/glob ulin mass ratioOrdered By: Andrew Maurice on 05-24-2025 Albumin/Globulin [Mass ratio] 1.2 {ratio} 0.9-2.4 [facility] Serum or plasma alkaline trinity sphatase measurementOrdered By: Andrew Maurice on 05-24-2025 ALP [Catalytic activity/Vol] 115 U/L High 35-104 [facility] Serum or plasma calcium alphonso urement (mass/volume)Ordered By: Andrew Small on 05-24-2025 Calcium [Mass/Vol] 8.7 mg/dL 7.6-11.0 [facility] Serum or plasma ethanol alphonso urement (mass/volume)Ordered By: Andrew Small on 06-26-2025 Ethanol [Mass/Vol] 312.0 mg/dL High <10.1 [facility] Comment on above: Critical Result(s) C alled at 0100: by: OTTO TO LSPARR Results read back by same.This test is for medical purposes only. The legal definition of intoxication varies according to local law. Serum or plasma urea nitroge n measurement (mass/volume)Ordered By: Andrew Maurice on 05-24-2025 Urea nitrogen [Mass/Vol] 8 mg/dL 4-19 [facility] Sodium levelOrdered By: Alfie Maurice on 05-24-2025 Sodium [Moles/Vol] 140 mmol/L 133-145 [facility] Squamous epithelial cells de tection in urine sediment by light microscopyOrdered By: Andrew Maurice on 05-24-2025 Epithelial cells.squamous LM Ql (Urine sed) 5-10 SEEN /hpf 5-10 [facility] Total proteinOrdered By: Last Maurice on 05-24-2025 Protein [Mass/Vol] 7.5 g/dL 5.9-8.4 [facility] Urine benzodiazepine levelOr dered By: Andrew Maurice on 05-24-2025 Benzodiazepines Ql (U) Positive < 200 ng/mL [facility] Comment on above: If confirmation test ing is needed, a separate order will be required to send out testing to the reference laboratory. Urine clarityOrdered By: Last Maurice on 05-24-2025 Clarity (U) Clear Clear [facility] Urine cocaine levelOrdered B y: Andrew Maurice on 05-24-2025 Cocaine Ql (U) Negative < 300 ng/mL [facility] Urine color determinationOrd ered By: Andrew Maurice on 05-24-2025 Color (U) Yellow Yellow [facility] Urine vngke-4-rhjdugfqnsgjao abinol (THC) measurementOrdered By: Andrew Small on 05-24-2025 Cannabinoids Screen Ql (U) Negative < 50 ng/mL [facility] Urine glucose detectionOrder ed By: Andrew Maurice on 05-24-2025 Glucose Ql (U) Normal mg/dl Normal [facility] Urine leukocyte esterase det ection by dipstickOrdered By: Andrew Maurice on 05-24-2025 Leukocyte esterase Test strip Ql (U) 25 /ul High Negative [facility] Urine pHOrdered By: Andrew Barrera on 05-24-2025 pH (U) 6.0 [pH] 5.0 - 8.0 [facility] Urine phencyclidine (PCP) de tectionOrdered By: Andrew Maurice on 05-24-2025 Phencyclidine Ql (U) Negative < 25 ng/mL [facility] Urine sediment bacteria coun t by microscopy (number/high power field)Ordered By: Andrew Maurice on 05-24-2025 Bacteria LM.HPF (Urine sed) [#/Area] 0 /[HPF] None Seen [facility] Urine specific gravity measu rementOrdered By: Andrew Maurice on 05-24-2025 Specific gravity (U) [Rel density] 1.015 1.002-1.030 [facility] Urine urobilinogen measureme ntOrdered By: Andrew Maurice on 05-24-2025 Urobilinogen Ql (U) Normal mg/dl Normal [facility] White blood cell (WBC) count Ordered By: Andrew Maurice on 05-24-2025 WBC (Bld) [#/Vol] 8.7 10*3/uL 4.4-11.0 [facility] White blood cell countOrdere d By: Andrew Maurice on 05-24-2025 White blood cell count 0-5 SEEN /hpf 0-5 [facility] Bedside Glucoseon 05-06-2025 FINGERSTICK GLU 358 mg/dL High 74-106 [facility] Comment on above: Result Comment: CHAUNCEY MUIRENT OF PATIENT CARE PER NURSING PROTOCOL Performed By: #### L 501.080 ####[facility] [address] [place], [address] FINGERSTICK GLU 219 mg/dL High 74-106 [facility] Comment on above: Result Comment: CHAUNCEY GEMENT OF PATIENT CARE PER NURSING PROTOCOL Performed By: #### L 501.080 ####[facility] [address] [facility] [address] Discharge Instructionon 06-0 Discharge Instruction Normal [facility] deOrdered By: Mao Becker on 05-06-2025 Glucose [Mass/Vol] 358 mg/dL High 74-106 [facility] Comment on above: MANAGEMENT OF PATIEN T CARE PER NURSING PROTOCOL Bedside Glucoseon 05-05-2025 FINGERSTICK GLU 331 mg/dL High [facility]106 [facility] Comment on above: Result Comment: CHAUNCEY GEMENT OF PATIENT CARE PER NURSING PROTOCOL Performed By: #### L 501.080 ####[facility] [address] [facility] [address] FINGERSTICK GLU 257 mg/dL High -106 [facility] Comment on above: Result Comment: CHAUNCEY GEMENT OF PATIENT CARE PER NURSING PROTOCOL Performed By: #### L 501.080 ####[facility] [address] [place], [address] FINGERSTICK GLU 346 mg/dL High [address] [place] [address] Comment on above: Result Comment: CHAUNCEY GEMENT OF PATIENT CARE PER NURSING PROTOCOL Performed By: #### L 501.080 ####[facility] [address] [place], [address] FINGERSTICK GLU 221 mg/dL High [facility]106 [facility] Comment on above: Result Comment: CHAUNCEY GEMENT OF PATIENT CARE PER NURSING PROTOCOL Performed By: #### L 501.080 ####[facility] [address] [facility] [address] Absolute lymphocyte countOrd ered By: Canelo Myers on 05-04-2025 Lymphocytes Auto (Unsp spec) [#/Vol] 1.36 10*3/uL 0.83-4.51 [facility] Absolute neutrophil countOrd ered By: Canelo Myers on 05-04-2025 Neutrophils (Bld) [#/Vol] 3.4 10*3/uL 2.0-7.7 [facility] Anion gap in Serum or Plasma Ordered By: Canelo Myers on 05-04-2025 Anion gap [Moles/Vol] 11 mmol/L 5-15 [facility] Automated lymphocyte count a s percentage of total leukocytesOrdered By: Canelo Myers on 05-04-2025 Lymphocytes/100 WBC Auto (Unsp spec) 23.0 % 19-41 [facility] BUN/creatinine ratioOrdered By: Canelo Myers on 05-04-2025 Urea nitrogen/Creatinine [Mass ratio] 9.6 mg/mg Low 10-20 [facility] Basophil percentageOrdered B y: Canelo Myers on 05-04-2025 Basophils/100 WBC (Bld) 0.5 % 0-[address] [facility] Bedside Glucoseon 05-04-2025 FINGERSTICK GLU 299 mg/dL High 74-106 [facility] Comment on above: Result Comment: CHAUNCEY GEMENT OF PATIENT CARE PER NURSING PROTOCOL Performed By: #### L 501.080 ####[facility] [address] [facility] [address] FINGERSTICK GLU 299 mg/dL High 74-106 [facility] Comment on above: Result Comment: CHAUNCEY GEMENT OF PATIENT CARE PER NURSING PROTOCOL Performed By: #### L 501.080 ####[facility] [address] [facility] [address] FINGERSTICK GLU 245 mg/dL High 74-106 [facility] Comment on above: Result Comment: CHAUNCEY GEMENT OF PATIENT CARE PER NURSING PROTOCOL Performed By: #### L 501.080 ####[facility] [address] [facility] [address] FINGERSTICK GLU 170 mg/dL High 74-106 [facility] Comment on above: Result Comment: CHAUNCEY GEMENT OF PATIENT CARE PER NURSING PROTOCOL Performed By: #### L 501.080 ####[facility] [address] [place], [address] Bilirubin, totalOrdered By: Canelo Myers on 05-04-2025 Bilirubin [Mass/Vol] 0.35 mg/dL 0.00-1.30 [facility] CBC W/Diff, Automatedon Absolute Lymph 1.36 X10 3/uL Normal 0.83-4.51 [facility] Comment on above: Performed By: #### L 100.0100, L500.4050 ####[facility] [address] [place], [address] Absolute Neut 3.4 X10 3/uL Normal 2.0-7.7 [facility] Comment on above: Performed By: #### L 100.0100, L500.4050 ####[facility] [address] [place], [address] Basophils/100 WBC (Bld) 0.5 % Normal 0-[address] [facility] Comment on above: Performed By: #### L 100.0100, L500.4050 ####[facility] [address] [place], [address] Eosinophils/100 WBC (Bld) 2.7 % Normal 0-5 [facility] Comment on above: Performed By: #### L 100.0100, L500.4050 ####[facility] [address] [place], [address] Erythrocyte distribution width (RBC) [Ratio] 12.8 % Normal 11.6-14.6 [facility] Comment on above: Performed By: #### L 100.0100, L500.4050 ####[facility] [address] [place], [address] Hematocrit (Bld) [Volume fraction] 30.6 % Low 37-47 [facility] Comment on above: Performed By: #### L 100.0100, L500.4050 ####[facility] [address] [place], [address] Hemoglobin (Bld) [Mass/Vol] 10.3 g/dL Low 12.0-15.0 [facility] Comment on above: Performed By: #### L 100.0100, L500.4050 ####[facility] [address] [place], [address] IG% 0.300 Normal 0.0-0.9 [facility] Comment on above: Result Comment: IG% - Immature Granulocytes (promyelocytes, myelocytes andmetamyelocytes) > 1% indicates that a LEFT SHIFT is Present. Performed By: #### L 100.0100, L500.4050 ####[facility] [address] [place], [address] Lymphocytes/100 WBC (Bld) 23.0 % Normal 19-41 [facility] Comment on above: Performed By: #### L 100.0100, L500.4050 ####[facility] [address] [place], [address] MCH (RBC) [Entitic mass] 35.8 pg High 27.0-32.0 [facility] Comment on above: Performed By: #### L 100.0100, L500.4050 ####[facility] [address] [place], [address] MCHC (RBC) [Mass/Vol] 33.7 g/dL Normal 32-36 [facility] Comment on above: Performed By: #### L 100.0100, L500.4050 ####[facility] [address] [place], [address] MCV (RBC) [Entitic vol] 106.3 fL High 81-[address] [facility] Comment on above: Performed By: #### L 100.0100, L500.4050 ####[facility] [address] [place], [address] Monocytes/100 WBC (Bld) 15.4 % High 0-[address] [facility] Comment on above: Performed By: #### L 100.0100, L500.4050 ####[facility] [address] [place], [address] Neutrophils/100 WBC (Bld) 58.1 % Normal 47-70 [facility] Comment on above: Performed By: #### L 100.0100, L500.4050 ####[facility] [address] [place], [address] Nucleated RBC (Bld) [#/Vol] 0 10*3/uL Normal 0-5 [facility] Comment on above: Performed By: #### L 100.0100, L500.4050 ####[facility] [address] [place], [address] Platelet mean volume (Bld) [Entitic vol] 10.3 fL Normal 6.2-12.0 [facility] Comment on above: Performed By: #### L 100.0100, L500.4050 ####[facility] [address] [place], [address] Platelets (Bld) [#/Vol] 376 10*3/uL Normal 150-450 [facility] Comment on above: Performed By: #### L 100.0100, L500.4050 ####[facility] [address] [place], [address] RBC (Bld) [#/Vol] 2.88 10*6/uL Low 4.2-5.4 [facility] Comment on above: Performed By: #### L 100.0100, L500.4050 ####[facility] [address] [place], [address] RDW SD 49.9 fl High 35.1-43.9 [facility] Comment on above: Performed By: #### L 100.0100, [id number] ####[facility] [address] [place], [address] WBC (Bld) [#/Vol] 5.9 10*3/uL Normal 4.4-11.0 [facility] Comment on above: Performed By: #### L 100.0100, L500.4050 ####[facility] [address] [place], [address] Carbon dioxide, total [Moles /volume] in Central venous bloodOrdered By: Canelo Myers on 05-04-2025 CO2 [Moles/Vol] 27.3 mmol/L 21.0-32.0 [facility] Chloride assayOrdered By: Henrry Myers on 05-04-2025 Chloride [Moles/Vol] 96 mmol/L Low 98-108 [facility] Comprehensive Metabolic Prof ilon 05-04-2025 Albumin [Mass/Vol] 3.4 g/dL Low 3.5-5.0 [facility] Comment on above: Performed By: #### L 100.0100, L500.4050 ####[facility] [address] [place], [address] Albumin/Globulin [Mass ratio] 1.1 {ratio} Normal 0.9-2.4 [facility] Comment on above: Performed By: #### L 100.0100, L500.4050 ####[facility] [address] [place], [address] ALK PHOS 441 U/L High 35-104 [facility] Comment on above: Performed By: #### L 100.0100, L500.4050 ####[facility] [address] [place], [address] ALT [Catalytic activity/Vol] 45 U/L High <=34 [facility] Comment on above: Performed By: #### L 100.0100, L500.4050 ####[facility] [address] [place], [address] AST [Catalytic activity/Vol] 51 U/L High <=31 [facility] Comment on above: Performed By: #### L 100.0100, L500.4050 ####[facility] [address] [place], [address] Bilirubin [Mass/Vol] 0.35 mg/dL Normal 0.00-1.30 [facility] Comment on above: Performed By: #### L 100.0100, L500.4050 ####[facility] [address] [place], [address] BUN/CRE 9.6 RATIO Low 10-20 [facility] Comment on above: Performed By: #### L 100.0100, L500.4050 ####[facility] [address] [place], [address] Calcium [Mass/Vol] 9.3 mg/dL Normal 7.6-11.0 [facility] Comment on above: Performed By: #### L 100.0100, L500.4050 ####[facility] [address] [place], [address] Chloride [Moles/Vol] 96 mmol/L Low 98-108 [facility] Comment on above: Performed By: #### L 100.0100, L500.4050 ####[facility] [address] [place], [address] CO2 [Moles/Vol] 27.3 mmol/L Normal 21.0-32.0 [facility] Comment on above: Performed By: #### L 100.0100, L500.4050 ####[facility] [address] [place], [address] Creatinine [Mass/Vol] 0.63 mg/dL Low 0.70-1.20 [facility] Comment on above: Performed By: #### L 100.0100, L500.4050 ####[facility] [address] [place], [address] ECRCL 94.30 ml/min Normal 50-250 [facility] Comment on above: Performed By: #### L 100.0100, L500.4050 ####[facility] [address] [place], [address] GAP 11 Normal 5-15 [facility] Comment on above: Performed By: #### L 100.0100, L500.4050 ####[facility] [address] [place], [address] GFR/1.73 sq M.predicted among non-blacks MDRD (S/P/Bld) [Vol rate/Area] 109 mL/min/{1.73_m2} Normal >60 [facility] Comment on above: Result Comment: mL/m in/1.73m2 CKD-EPI Creatinine Equation (2020) Performed By: #### L 100.0100, L500.4050 ####[facility] [address] [place], [address] Globulin (S) [Mass/Vol] 2.9 g/dL Normal 2.2-4.2 [facility] Comment on above: Performed By: #### L 100.0100, L500.4050 ####[facility] [address] [place], [address] Glucose [Mass/Vol] 171 mg/dL High 70-99 [facility] Comment on above: Performed By: #### L 100.0100, L500.4050 ####[facility] [address] [place], [address] Potassium [Moles/Vol] 4.7 mmol/L Normal 3.3-5.1 [facility] Comment on above: Performed By: #### L 100.0100, L500.4050 ####[facility] [address] [place], [address] Sodium [Moles/Vol] 134 mmol/L Normal 133-145 [facility] Comment on above: Performed By: #### L 100.0100, L500.4050 ####[facility] [address] [place], [address] T PROT 6.3 g/dL Normal 5.9-8.4 [facility] Comment on above: Performed By: #### L 100.0100, L500.4050 ####[facility] [address] [place], [address] Urea nitrogen [Mass/Vol] 6 mg/dL Normal 4-19 [facility] Comment on above: Performed By: #### L 100.0100, L500.4050 ####[facility] [address] [place], [address] Eosinophil percentageOrdered By: Canelo Myers on 05-04-2025 Eosinophils/100 WBC (Bld) 2.7 % 0-5 [facility] Erythrocyte distribution wid th ratioOrdered By: Canelo Myers on 05-04-2025 Erythrocyte distribution width (RBC) [Ratio] 12.8 % 11.6-14.6 [facility] Erythrocyte distribution wid th standard deviationOrdered By: Canelo Myers on 05-04-2025 Erythrocyte distribution width (RBC) [Ratio] 49.9 fl High 35.1-43.9 [facility] Glomerular filtration rate ( GFR) estimation/1.73 sq m using serum, plasma, or whole bOrdered By: Canelo Myers on 05-04-2025 GFR/1.73 sq M.predicted among non-blacks MDRD (S/P/Bld) [Vol rate/Area] 109 mL/min/{1.73_m2} >60 [facility] Comment on above: mL/min/1.73m2 CKD-EP I Creatinine Equation (2020) Hematocrit Auto (Bld) [Volum e fraction]Ordered By: Canelo Myers on 05-04-2025 Hematocrit (Bld) [Volume fraction] 30.6 % Low 37-47 [facility] Hemoglobin measurementOrdere d By: Canelo Myers on 05-04-2025 Hemoglobin (Bld) [Mass/Vol] 10.3 g/dL Low 12.0-15.0 [facility] Immature granulocytes/100 WB C Auto (Bld)Ordered By: Canelo Myers on 05-04-2025 Immature granulocytes/100 WBC (Bld) 0.300 % 0.0-0.9 [facility] Comment on above: IG% - Immature Granu locytes (promyelocytes, myelocytes and metamyelocytes) > 1% indicates that a LEFT SHIFT is Present. Laboratory - Chemistry and C hemistry - challengeOrdered By: Canelo Myers on 05-04-2025 AST [Catalytic activity/Vol] 51 U/L High <32 [facility] MCV (mean corpuscular volume ) determinationOrdered By: Canelo Myers on 05-04-2025 MCV (RBC) [Entitic vol] 106.3 fL High 81-[address] [facility] Mean corpuscular hemoglobin (MCH) determinationOrdered By: Canelo Myers on 05-04-2025 MCH (RBC) [Entitic mass] 35.8 pg High 27.0-32.0 [facility] Mean corpuscular hemoglobin concentration (MCHC) determinationOrdered By: Canelo Myers on 05-04-2025 MCHC (RBC) [Mass/Vol] 33.7 g/dL 32-36 [facility] Mean platelet volume determi nationOrdered By: Canelo Myers on 05-04-2025 Platelet mean volume (Bld) [Entitic vol] 10.3 fL 6.2-12.0 [facility] Monocyte percentageOrdered B y: Canelo Myers on 05-04-2025 Monocytes/100 WBC (Bld) 15.4 % High 0-[address] [facility] Neutrophil percentageOrdered By: Canelo Myers on 05-04-2025 Neutrophils/100 WBC (Bld) 58.1 % 47-70 [facility] No Panel InformationOrdered By: Canelo Myers on 05-04-2025 51 U/L High <32 [facility] Nucleated red blood cell per centageOrdered By: Canelo Myers on 05-04-2025 Nucleated RBC/100 WBC (Bld) [Ratio] 0 % 0-5 [facility] Platelet countOrdered By: Henrry Myers on 05-04-2025 Platelets (Bld) [#/Vol] 376 10*3/uL 150-450 [facility] Potassium measurement (mass/ volume)Ordered By: Canelo Myers on 05-04-2025 Potassium (Unsp spec) [Mass/Vol] 4.7 mmol/L 3.3-5.1 [facility] RBC Auto (Bld) [#/Vol]Ordere d By: Canelo Myers on 05-04-2025 RBC (Bld) [#/Vol] 2.88 10*6/uL Low 4.2-5.4 [facility] Serum creatinine measurement (mass/volume)Ordered By: Canelo Myers on 05-04-2025 Creatinine [Mass/Vol] 0.63 mg/dL Low 0.70-1.20 [facility] Serum globulin measurementOr dered By: Canelo Myers on 05-04-2025 Globulin (S) [Mass/Vol] 2.9 g/dL 2.2-4.2 [facility] Serum glucose measurement (m ass/volume)Ordered By: Canelo Myers on 05-04-2025 Glucose [Mass/Vol] 171 mg/dL High 70-99 [facility] Serum or plasma alanine wilkerson otransferase (ALT) measurementOrdered By: Canelo Myers on 05-04-2025 ALT [Catalytic activity/Vol] 45 U/L High <35 [facility] Serum or plasma albumin alphonso urement (mass/volume)Ordered By: Canelo Myers on 05-04-2025 Albumin [Mass/Vol] 3.4 g/dL Low 3.5-5.0 [facility] Serum or plasma albumin/glob ulin mass ratioOrdered By: Canelo Myers on 05-04-2025 Albumin/Globulin [Mass ratio] 1.1 {ratio} 0.9-2.4 [facility] Serum or plasma alkaline trinity sphatase measurementOrdered By: Canelo Myers on 05-04-2025 ALP [Catalytic activity/Vol] 441 U/L High 35-104 [facility] Serum or plasma calcium alphonso urement (mass/volume)Ordered By: Canelo Myers on 05-04-2025 Calcium [Mass/Vol] 9.3 mg/dL 7.6-11.0 [facility] Serum or plasma urea nitroge n measurement (mass/volume)Ordered By: Canelo Myers on 05-04-2025 Urea nitrogen [Mass/Vol] 6 mg/dL 4-19 [facility] Sodium levelOrdered By: Ganesh Myers on 05-04-2025 Sodium [Moles/Vol] 134 mmol/L 133-145 [facility] Total proteinOrdered By: Guido Myers on 05-04-2025 Protein [Mass/Vol] 6.3 g/dL 5.9-8.4 [facility] White blood cell (WBC) count Ordered By: Canelo Myers on 05-04-2025 WBC (Bld) [#/Vol] 5.9 10*3/uL 4.4-11.0 [facility] Bedside Glucoseon 05-03-2025 FINGERSTICK GLU 230 mg/dL High [address] [facility] Comment on above: Result Comment: CHAUNCEY GEMENT OF PATIENT CARE PER NURSING PROTOCOL Performed By: #### L 501.080 ####[facility] [address] [place], [address] FINGERSTICK GLU 237 mg/dL High [address] [place] [address] Comment on above: Result Comment: CHAUNCEY GEMENT OF PATIENT CARE PER NURSING PROTOCOL Performed By: #### L 501.080 ####[facility] [address] [place], [address] FINGERSTICK GLU 220 mg/dL High [address] [place] [address] Comment on above: Result Comment: CHAUNCEY GEMENT OF PATIENT CARE PER NURSING PROTOCOL Performed By: #### L 501.080 ####[facility] [address] [place], [address] CBC W/Diff, Automatedon 06-0 5-5 Absolute Lymph 1.14 X10 3/uL Normal 0.83-4.51 [facility] Comment on above: Performed By: #### L 100.0100, L500.4050 ####[facility] [address] [place], [address] Absolute Neut 3.5 X10 3/uL Normal 2.0-7.7 [facility] Comment on above: Performed By: #### L 100.0100, L500.4050 ####[facility] [address] [place], [address] Basophils/100 WBC (Bld) 0.7 % Normal 0-[address] [facility] Comment on above: Performed By: #### L 100.0100, L500.4050 ####[facility] [address] [place], [address] Eosinophils/100 WBC (Bld) 3.1 % Normal 0-5 [facility] Comment on above: Performed By: #### L 100.0100, L500.4050 ####[facility] [address] [place], [address] Erythrocyte distribution width (RBC) [Ratio] 12.5 % Normal 11.6-14.6 [facility] Comment on above: Performed By: #### L 100.0100, L500.4050 ####[facility] [address] [place], [address] Hematocrit (Bld) [Volume fraction] 31.0 % Low 37-47 [facility] Comment on above: Performed By: #### L 100.0100, L500.4050 ####[facility] [address] [place], [address] Hemoglobin (Bld) [Mass/Vol] 10.4 g/dL Low 12.0-15.0 [facility] Comment on above: Performed By: #### L 100.0100, L500.4050 ####[facility] [address] [place], [address] IG% 0.300 Normal 0.0-0.9 [facility] Comment on above: Result Comment: IG% - Immature Granulocytes (promyelocytes, myelocytes andmetamyelocytes) > 1% indicates that a LEFT SHIFT is Present. Performed By: #### L 100.0100, L500.4050 ####[facility] [address] [place], [address] Lymphocytes/100 WBC (Bld) 19.7 % Normal 19-41 [facility] Comment on above: Performed By: #### L 100.0100, L500.4050 ####[facility] [address] [place], [address] MCH (RBC) [Entitic mass] 35.6 pg High 27.0-32.0 [facility] Comment on above: Performed By: #### L 100.0100, L500.4050 ####[facility] [address] [place], [address] MCHC (RBC) [Mass/Vol] 33.5 g/dL Normal 32-36 [facility] Comment on above: Performed By: #### L 100.0100, L500.4050 ####[facility] [address] [place], [address] MCV (RBC) [Entitic vol] 106.2 fL High 81-[address] [facility] Comment on above: Performed By: #### L 100.0100, L500.4050 ####[facility] [address] [place], [address] Monocytes/100 WBC (Bld) 15.1 % High 0-[address] [facility] Comment on above: Performed By: #### L 100.0100, L500.4050 ####[facility] [address] [place], [address] Neutrophils/100 WBC (Bld) 61.1 % Normal 47-70 [facility] Comment on above: Performed By: #### L 100.0100, L500.4050 ####[facility] [address] [place], [address] Nucleated RBC (Bld) [#/Vol] 0 10*3/uL Normal 0-5 [facility] Comment on above: Performed By: #### L 100.0100, L500.4050 ####[facility] [address] [place], [address] Platelet mean volume (Bld) [Entitic vol] 10.2 fL Normal 6.2-12.0 [facility] Comment on above: Performed By: #### L 100.0100, L500.4050 ####[facility] [address] [place], [address] Platelets (Bld) [#/Vol] 297 10*3/uL Normal 150-450 [facility] Comment on above: Performed By: #### L 100.0100, L500.4050 ####[facility] [address] [place], [address] RBC (Bld) [#/Vol] 2.92 10*6/uL Low 4.2-5.4 [facility] Comment on above: Performed By: #### L 100.0100, L500.4050 ####[facility] [address] [place], [address] RDW SD 49.1 fl High 35.1-43.9 [facility] Comment on above: Performed By: #### L 100.0100, L500.4050 ####[facility] [address] [place], [address] WBC (Bld) [#/Vol] 5.8 10*3/uL Normal 4.4-11.0 [facility] Comment on above: Performed By: #### L 100.0100, L500.4050 ####[facility] [address] [place], [address] Comprehensive Metabolic Prof ilon 05-03-2025 Albumin [Mass/Vol] 3.1 g/dL Low 3.5-5.0 [facility] Comment on above: Performed By: #### L 100.0100, L500.4050 ####[facility] [address] [place], [address] Albumin/Globulin [Mass ratio] 1.1 {ratio} Normal 0.9-2.4 [facility] Comment on above: Performed By: #### L 100.0100, L500.4050 ####[facility] [address] [place], [address] ALK PHOS 311 U/L High 35-104 [facility] Comment on above: Performed By: #### L 100.0100, L500.4050 ####[facility] [address] [place], [address] ALT [Catalytic activity/Vol] 38 U/L High <=34 [facility] Comment on above: Performed By: #### L 100.0100, L500.4050 ####[facility] [address] [place], [address] AST [Catalytic activity/Vol] 48 U/L High <=31 [facility] Comment on above: Performed By: #### L 100.0100, L500.4050 ####[facility] [address] [place], [address] Bilirubin [Mass/Vol] 0.32 mg/dL Normal 0.00-1.30 [facility] Comment on above: Performed By: #### L 100.0100, L500.4050 ####[facility] [address] [place], [address] BUN/CRE 12.9 RATIO Normal 10-20 [facility] Comment on above: Performed By: #### L 100.0100, L500.4050 ####[facility] [address] [place], [address] Calcium [Mass/Vol] 8.5 mg/dL Normal 7.6-11.0 [facility] Comment on above: Performed By: #### L 100.0100, L500.4050 ####[facility] [address] [place], [address] Chloride [Moles/Vol] 97 mmol/L Low 98-108 [facility] Comment on above: Performed By: #### L 100.0100, L500.4050 ####[facility] [address] [place], [address] CO2 [Moles/Vol] 28.2 mmol/L Normal 21.0-32.0 [facility] Comment on above: Performed By: #### L 100.0100, L500.4050 ####[facility] [address] [place], [address] Creatinine [Mass/Vol] 0.58 mg/dL Low 0.70-1.20 [facility] Comment on above: Performed By: #### L 100.0100, L500.4050 ####[facility] [address] [place], [address] ECRCL 102.43 ml/min Normal 50-250 [facility] Comment on above: Performed By: #### L 100.0100, L500.4050 ####[facility] [address] [place], [address] GAP 9 Normal 5-15 [facility] Comment on above: Performed By: #### L 100.0100, L500.4050 ####[facility] [address] [place], [address] GFR/1.73 sq M.predicted among non-blacks MDRD (S/P/Bld) [Vol rate/Area] 112 mL/min/{1.73_m2} Normal >60 [facility] Comment on above: Result Comment: mL/m in/1.73m2 CKD-EPI Creatinine Equation (2020) Performed By: #### L 100.0100, L500.4050 ####[facility] [address] [place], [address] Globulin (S) [Mass/Vol] 2.8 g/dL Normal 2.2-4.2 [facility] Comment on above: Performed By: #### L 100.0100, L500.4050 ####[facility] [address] [place], [address] Glucose [Mass/Vol] 227 mg/dL High 70-99 [facility] Comment on above: Performed By: #### L 100.0100, L500.4050 ####[facility] [address] [place], [address] Potassium [Moles/Vol] 4.8 mmol/L Normal 3.3-5.1 [facility] Comment on above: Performed By: #### L 100.0100, L500.4050 ####[facility] [address] [place], [address] Sodium [Moles/Vol] 135 mmol/L Normal 133-145 [facility] Comment on above: Performed By: #### L 100.0100, L500.4050 ####[facility] [address] [place], [address] T PROT 5.9 g/dL Normal 5.9-8.4 [facility] Comment on above: Performed By: #### L 100.0100, L500.4050 ####[facility] [address] [place], [address] Urea nitrogen [Mass/Vol] 7 mg/dL Normal 4-19 [facility] Comment on above: Performed By: #### L 100.0100, L500.4050 ####[facility] [address] [place], [address] Bedside Glucoseon 05-02-2025 FINGERSTICK GLU 288 mg/dL High 74-106 [facility] Comment on above: Result Comment: CHAUNCEY GEMENT OF PATIENT CARE PER NURSING PROTOCOL Performed By: #### L 501.080 ####[facility] [address] [place], [address] FINGERSTICK GLU 198 mg/dL High 74-106 [facility] Comment on above: Result Comment: CHAUNCEY GEMENT OF PATIENT CARE PER NURSING PROTOCOL Performed By: #### L 501.080 ####[facility] [address] [place], [address] FINGERSTICK GLU 196 mg/dL High 74-106 [facility] Comment on above: Result Comment: CHAUNCEY GEMENT OF PATIENT CARE PER NURSING PROTOCOL Performed By: #### L 501.080 ####[facility] [address] [place], [address] CBC W/Diff, Automatedon 06-0 Absolute Lymph 1.17 X10 3/uL Normal 0.83-4.51 [facility] Comment on above: Performed By: #### L 501.2300, L501.5200, L500.4050, L100.0100 ####[facility] [address] [place], [address] Absolute Neut 3.0 X10 3/uL Normal 2.0-7.7 [facility] Comment on above: Performed By: #### L 501.2300, L501.5200, L500.4050, L100.0100 ####[facility] [address] [place], [address] Basophils/100 WBC (Bld) 0.6 % Normal 0-[address] [facility] Comment on above: Performed By: #### L 501.2300, L501.5200, L500.4050, L100.0100 ####[facility] [address] [place], [address] Eosinophils/100 WBC (Bld) 3.3 % Normal 0-5 [facility] Comment on above: Performed By: #### L 501.2300, L501.5200, L500.4050, L100.0100 ####[facility] [address] [place], [address] Erythrocyte distribution width (RBC) [Ratio] 12.5 % Normal 11.6-14.6 [facility] Comment on above: Performed By: #### L 501.2300, L501.5200, L500.4050, L100.0100 ####[facility] [address] [place], [address] Hematocrit (Bld) [Volume fraction] 30.1 % Low 37-47 [facility] Comment on above: Performed By: #### L 501.2300, L501.5200, L500.4050, L100.0100 ####[facility] [address] [place], [address] Hemoglobin (Bld) [Mass/Vol] 10.4 g/dL Low 12.0-15.0 [facility] Comment on above: Performed By: #### L 501.2300, L501.5200, L500.4050, L100.0100 ####[facility] [address] [place], [address] IG% 0.600 Normal 0.0-0.9 [facility] Comment on above: Result Comment: IG% - Immature Granulocytes (promyelocytes, myelocytes andmetamyelocytes) > 1% indicates that a LEFT SHIFT is Present. Performed By: #### L 501.2300, L501.5200, L500.4050, L100.0100 ####[facility] [address] [place], [address] Lymphocytes/100 WBC (Bld) 22.5 % Normal 19-41 [facility] Comment on above: Performed By: #### L 501.2300, L501.5200, L500.4050, L100.0100 ####[facility] [address] [place], [address] MCH (RBC) [Entitic mass] 36.9 pg High 27.0-32.0 [facility] Comment on above: Performed By: #### L 501.2300, L501.5200, L500.4050, L100.0100 ####[facility] [address] [place], [address] MCHC (RBC) [Mass/Vol] 34.6 g/dL Normal 32-36 [facility] Comment on above: Performed By: #### L 501.2300, L501.5200, L500.4050, L100.0100 ####[facility] [address] [place], [address] MCV (RBC) [Entitic vol] 106.7 fL High 81-[address] [facility] Comment on above: Performed By: #### L 501.2300, L501.5200, L500.4050, L100.0100 ####[facility] [address] [place], [address] Monocytes/100 WBC (Bld) 15.8 % High 0-[address] [facility] Comment on above: Performed By: #### L 501.2300, L501.5200, L500.4050, L100.0100 ####[facility] [address] [place], [address] Neutrophils/100 WBC (Bld) 57.2 % Normal 47-70 [facility] Comment on above: Performed By: #### L 501.2300, L501.5200, L500.4050, L100.0100 ####[facility] [address] [place], [address] Nucleated RBC (Bld) [#/Vol] 0 10*3/uL Normal 0-5 [facility] Comment on above: Performed By: #### L 501.2300, L501.5200, L500.4050, L100.0100 ####[facility] [address] [place], [address] Platelet mean volume (Bld) [Entitic vol] 10.3 fL Normal 6.2-12.0 [facility] Comment on above: Performed By: #### L 501.2300, L501.5200, L500.4050, L100.0100 ####[facility] [address] [place], [address] Platelets (Bld) [#/Vol] 247 10*3/uL Normal 150-450 [facility] Comment on above: Performed By: #### L 501.2300, L501.5200, L500.4050, L100.0100 ####[facility] [address] [place], [address] RBC (Bld) [#/Vol] 2.82 10*6/uL Low 4.2-5.4 [facility] Comment on above: Performed By: #### L 501.2300, L501.5200, L500.4050, L100.0100 ####[facility] [address] [place], [address] RDW SD 49.4 fl High 35.1-43.9 [facility] Comment on above: Performed By: #### L 501.2300, L501.5200, L500.4050, L100.0100 ####[facility] [address] [place], [address] WBC (Bld) [#/Vol] 5.2 10*3/uL Normal 4.4-11.0 [facility] Comment on above: Performed By: #### L 501.2300, L501.5200, L500.4050, L100.0100 ####[facility] [address] [place], [address] Comprehensive Metabolic Prof [facility] 05-02-2025 Albumin [Mass/Vol] 3.1 g/dL Low 3.5-5.0 [facility] Comment on above: Performed By: #### L 501.2300, L501.5200, L500.4050, L100.0100 ####[facility] [address] [place], [address] Albumin/Globulin [Mass ratio] 1.2 {ratio} Normal 0.9-2.4 [facility] Comment on above: Performed By: #### L 501.2300, L501.5200, L500.4050, L100.0100 ####[facility] [address] [place], [address] ALK PHOS 230 U/L High 35-104 [facility] Comment on above: Performed By: #### L 501.2300, L501.5200, L500.4050, L100.0100 ####[facility] [address] [place], [address] ALT [Catalytic activity/Vol] 33 U/L Normal <=34 [facility] Comment on above: Performed By: #### L 501.2300, L501.5200, L500.4050, L100.0100 ####[facility] [address] [place], [address] AST [Catalytic activity/Vol] 40 U/L High <=31 [facility] Comment on above: Performed By: #### L 501.2300, L501.5200, L500.4050, L100.0100 ####[facility] [address] [place], [address] Bilirubin [Mass/Vol] 0.49 mg/dL Normal 0.00-1.30 [facility] Comment on above: Performed By: #### L 501.2300, L501.5200, L500.4050, L100.0100 ####[facility] [address] [place], [address] BUN/CRE 13.6 RATIO Normal 10-20 [facility] Comment on above: Performed By: #### L 501.2300, L501.5200, L500.4050, L100.0100 ####[facility] [address] [place], [address] Calcium [Mass/Vol] 8.7 mg/dL Normal 7.6-11.0 [facility] Comment on above: Performed By: #### L 501.2300, L501.5200, L500.4050, L100.0100 ####[facility] [address] [place], [address] Chloride [Moles/Vol] 95 mmol/L Low 98-108 [facility] Comment on above: Performed By: #### L 501.2300, L501.5200, L500.4050, L100.0100 ####[facility] [address] [place], [address] CO2 [Moles/Vol] 28.5 mmol/L Normal 21.0-32.0 [facility] Comment on above: Performed By: #### L 501.2300, L501.5200, L500.4050, L100.0100 ####[facility] [address] [place], [address] Creatinine [Mass/Vol] 0.52 mg/dL Low 0.70-1.20 [facility] Comment on above: Performed By: #### L 501.2300, L501.5200, L500.4050, L100.0100 ####[facility] [address] [place], [address] ECRCL 114.25 ml/min Normal 50-250 [facility] Comment on above: Performed By: #### L 501.2300, L501.5200, L500.4050, L100.0100 ####[facility] [address] [place], [address] GAP 11 Normal 5-15 [facility] Comment on above: Performed By: #### L 501.2300, L501.5200, L500.4050, L100.0100 ####[facility] [address] [place], [address] GFR/1.73 sq M.predicted among non-blacks MDRD (S/P/Bld) [Vol rate/Area] 115 mL/min/{1.73_m2} Normal >60 [facility] Comment on above: Result Comment: mL/m in/1.73m2 CKD-EPI Creatinine Equation (2020) Performed By: #### L 501.2300, L501.5200, L500.4050, L100.0100 ####[facility] [address] [place], [address] Globulin (S) [Mass/Vol] 2.7 g/dL Normal 2.2-4.2 [facility] Comment on above: Performed By: #### L 501.2300, L501.5200, L500.4050, L100.0100 ####[facility] [address] [place], [address] Glucose [Mass/Vol] 197 mg/dL High 70-99 [facility] Comment on above: Performed By: #### L 501.2300, L501.5200, L500.4050, L100.0100 ####[facility] [address] [place], [address] Potassium [Moles/Vol] 4.2 mmol/L Normal 3.3-5.1 [facility] Comment on above: Performed By: #### L 501.2300, L501.5200, L500.4050, L100.0100 ####[facility] [address] [place], [address] Sodium [Moles/Vol] 134 mmol/L Normal 133-145 [facility] Comment on above: Performed By: #### L 501.2300, L501.5200, L500.4050, L100.0100 ####[facility] [address] [place], [address] T PROT 5.8 g/dL Low 5.9-8.4 [facility] Comment on above: Performed By: #### L 501.2300, L501.5200, L500.4050, L100.0100 ####[facility] [address] [place], [address] Urea nitrogen [Mass/Vol] 7 mg/dL Normal 4-19 [facility] Comment on above: Performed By: #### L 501.2300, L501.5200, L500.4050, L100.0100 ####[facility] [address] [place], [address] Magnesiumon 05-02-2025 Magnesium [Mass/Vol] 1.2 mg/dL Low 1.5-2.2 [facility] Comment on above: Performed By: #### L 501.2300, L501.5200, L500.4050, L100.0100 ####[facility] [address] [place], [address] Magnesium measurement (mass/ volume)Ordered By: Canelo Myers on 05-02-2025 Magnesium (Unsp spec) [Mass/Vol] 1.2 mg/dL Low 1.5-2.2 [facility] Phosphoruson 05-02-2025 Phosphate [Mass/Vol] 5.0 mg/dL High 2.7-4.5 [facility] Comment on above: Performed By: #### L 501.2300, L501.5200, L500.4050, L100.0100 ####[facility] [address] [place], [address] Bedside Glucoseon 05-01-2025 FINGERSTICK GLU 234 mg/dL High 74-106 [facility] Comment on above: Result Comment: CHAUNCEY GEMENT OF PATIENT CARE PER NURSING PROTOCOL Performed By: #### L 501.080 ####[facility] [address] [place], [address] FINGERSTICK GLU 316 mg/dL High -106 [facility] Comment on above: Result Comment: CHAUNCEY GEMENT OF PATIENT CARE PER NURSING PROTOCOL Performed By: #### L 501.080 ####[facility] [address] [place], [address] FINGERSTICK GLU 168 mg/dL High 74-106 [facility] Comment on above: Result Comment: CHAUNCEY GEMENT OF PATIENT CARE PER NURSING PROTOCOL Performed By: #### L 501.080 ####[facility] [address] [place], [address] Bilirubin directOrdered By: Canelo Myers on 05-01-2025 Bilirubin.direct [Mass/Vol] 0.32 mg/dL High 0.00-0.30 [facility] Liver Profileon 05-01-2025 Albumin [Mass/Vol] 3.0 g/dL Low 3.5-5.0 [facility] Comment on above: Performed By: #### L 500.3400 ####[facility] [address] [place], [address] ALK PHOS 166 U/L High 35-104 [facility] Comment on above: Performed By: #### L 500.3400 ####[facility] [address] [place], [address] ALT [Catalytic activity/Vol] 39 U/L High <=34 [facility] Comment on above: Performed By: #### L 500.3400 ####[facility] [address] [place], [address] AST [Catalytic activity/Vol] 73 U/L High <=31 [facility] Comment on above: Performed By: #### L 500.3400 ####[facility] [address] [place], [address] Bilirubin [Mass/Vol] 0.59 mg/dL Normal 0.00-1.30 [facility] Comment on above: Performed By: #### L 500.3400 ####[facility] [address] [place], [address] Bilirubin.direct [Mass/Vol] 0.32 mg/dL High 0.00-0.30 [facility] Comment on above: Performed By: #### L 500.3400 ####[facility] [address] [place], [address] Globulin (S) [Mass/Vol] 2.7 g/dL Normal 2.2-4.2 [facility] Comment on above: Performed By: #### L 500.3400 ####[facility] [address] [place], [address] T PROT 5.7 g/dL Low 5.9-8.4 [facility] Comment on above: Performed By: #### L 500.3400 ####[facility] [address] [place], [address] Phosphoruson 05-01-2025 Phosphate [Mass/Vol] 5.1 mg/dL High 2.7-4.5 [facility] Comment on above: Performed By: #### L 501.2300 ####[facility] [address] [place], [address] Basic Metabolic Profile (BMP )on 04-30-2025 BUN/CRE UNABLE TO CALCULATE Low 10-20 [facility] Comment on above: Performed By: #### L 500.3400, L500.2500, L100.0100 ####[facility] [address] [place], [address] Calcium [Mass/Vol] 8.5 mg/dL Normal 7.6-11.0 [facility] Comment on above: Performed By: #### L 500.3400, L500.2500, L100.0100 ####[facility] [address] [place], [address] Chloride [Moles/Vol] 98 mmol/L Normal 98-108 [facility] Comment on above: Performed By: #### L 500.3400, L500.2500, L100.0100 ####[facility] [address] [place], [address] CO2 [Moles/Vol] 28.1 mmol/L Normal 21.0-32.0 [facility] Comment on above: Performed By: #### L 500.3400, L500.2500, L100.0100 ####[facility] [address] [place], [address] Creatinine [Mass/Vol] 0.41 mg/dL Low 0.70-1.20 [facility] Comment on above: Performed By: #### L 500.3400, L500.2500, L100.0100 ####[facility] [address] [place], [address] ECRCL 144.90 ml/min Normal 50-250 [facility] Comment on above: Performed By: #### L 500.3400, L500.2500, L100.0100 ####[facility] [address] [place], [address] GAP 13 Normal 5-15 [facility] Comment on above: Performed By: #### L 500.3400, L500.2500, L100.0100 ####[facility] [address] [place], [address] GFR/1.73 sq M.predicted among non-blacks MDRD (S/P/Bld) [Vol rate/Area] 121 mL/min/{1.73_m2} Normal >60 [facility] Comment on above: Result Comment: mL/m in/1.73m2 CKD-EPI Creatinine Equation (2020) Performed By: #### L 500.3400, L500.2500, L100.0100 ####[facility] [address] [place], [address] Glucose [Mass/Vol] 124 mg/dL High 70-99 [facility] Comment on above: Performed By: #### L 500.3400, L500.2500, L100.0100 ####[facility] [address] [place], [address] Potassium [Moles/Vol] 2.7 mmol/L Invalid Interpretation Code 3.3-5.1 [facility] Comment on above: Result Comment: Crit ical Result(s) Called at: by:??Results read back bysame. Performed By: #### L 500.3400, L500.2500, L100.0100 ####[facility] [address] [place], [address] Sodium [Moles/Vol] 139 mmol/L Normal 133-145 [facility] Comment on above: Performed By: #### L 500.3400, L500.2500, L100.0100 ####[facility] [address] [place], [address] Urea nitrogen [Mass/Vol] mg/dL Low 4-19 [facility] Comment on above: Performed By: #### L 500.3400, L500.2500, L100.0100 ####[facility] [address] [place], [address] Bedside Glucoseon 04-30-2025 FINGERSTICK GLU 147 mg/dL High 74-106 [facility] Comment on above: Result Comment: CHAUNCEY GEMENT OF PATIENT CARE PER NURSING PROTOCOL Performed By: #### L 501.080 ####[facility] [address] [place], [address] FINGERSTICK GLU 230 mg/dL High 74-106 [facility] Comment on above: Result Comment: CHAUNCEY GEMENT OF PATIENT CARE PER NURSING PROTOCOL Performed By: #### L 501.080 ####[facility] [address] [place], [address] FINGERSTICK GLU 149 mg/dL High 74-106 [facility] Comment on above: Result Comment: CHAUNCEY GEMENT OF PATIENT CARE PER NURSING PROTOCOL Performed By: #### L 501.080 ####[facility] [address] [place], [address] CBC W/Diff, Automatedon 06-0 Absolute Lymph 1.39 X10 3/uL Normal 0.83-4.51 [facility] Comment on above: Performed By: #### L 500.3400, L500.2500, L100.0100 ####[facility] [address] [place], [address] Absolute Neut 3.6 X10 3/uL Normal 2.0-7.7 [facility] Comment on above: Performed By: #### L 500.3400, L500.2500, L100.0100 ####[facility] [address] [place], [address] Basophils/100 WBC (Bld) 0.5 % Normal 0-[address] [facility] Comment on above: Performed By: #### L 500.3400, L500.2500, L100.0100 ####[facility] [address] [place], [address] Eosinophils/100 WBC (Bld) 2.0 % Normal 0-5 [facility] Comment on above: Performed By: #### L 500.3400, L500.2500, L100.0100 ####[facility] [address] [place], [address] Erythrocyte distribution width (RBC) [Ratio] 12.6 % Normal 11.6-14.6 [facility] Comment on above: Performed By: #### L 500.3400, L500.2500, L100.0100 ####[facility] [address] [place], [address] Hematocrit (Bld) [Volume fraction] 29.7 % Low 37-47 [facility] Comment on above: Performed By: #### L 500.3400, L500.2500, L100.0100 ####[facility] [address] [place], [address] Hemoglobin (Bld) [Mass/Vol] 10.3 g/dL Low 12.0-15.0 [facility] Comment on above: Performed By: #### L 500.3400, L500.2500, L100.0100 ####[facility] [address] [place], [address] IG% 0.500 Normal 0.0-0.9 [facility] Comment on above: Result Comment: IG% - Immature Granulocytes (promyelocytes, myelocytes andmetamyelocytes) > 1% indicates that a LEFT SHIFT is Present. Performed By: #### L 500.3400, L500.2500, L100.0100 ####[facility] [address] [place], [address] Lymphocytes/100 WBC (Bld) 23.4 % Normal 19-41 [facility] Comment on above: Performed By: #### L 500.3400, L500.2500, L100.0100 ####[facility] [address] [place], [address] MCH (RBC) [Entitic mass] 36.7 pg High 27.0-32.0 [facility] Comment on above: Performed By: #### L 500.3400, L500.2500, L100.0100 ####[facility] [address] [place], [address] MCHC (RBC) [Mass/Vol] 34.7 g/dL Normal 32-36 [facility] Comment on above: Performed By: #### L 500.3400, L500.2500, L100.0100 ####[facility] [address] [place], [address] MCV (RBC) [Entitic vol] 105.7 fL High 81-99 [facility] Comment on above: Performed By: #### L 500.3400, L500.2500, L100.0100 ####[facility] [address] [place], [address] Monocytes/100 WBC (Bld) 13.8 % High 0-[address] [facility] Comment on above: Performed By: #### L 500.3400, L500.2500, L100.0100 ####[facility] [address] [place], [address] Neutrophils/100 WBC (Bld) 59.8 % Normal 47-70 [facility] Comment on above: Performed By: #### L 500.3400, L500.2500, L100.0100 ####[facility] [address] [place], [address] Nucleated RBC (Bld) [#/Vol] 0 10*3/uL Normal 0-5 [facility] Comment on above: Performed By: #### L 500.3400, L500.2500, L100.0100 ####[facility] [address] [place], [address] Platelet mean volume (Bld) [Entitic vol] 10.4 fL Normal 6.2-12.0 [facility] Comment on above: Performed By: #### L 500.3400, L500.2500, L100.0100 ####[facility] [address] [place], [address] Platelets (Bld) [#/Vol] 145 10*3/uL Low 150-450 [facility] Comment on above: Performed By: #### L 500.3400, L500.2500, L100.0100 ####[facility] [address] [place], [address] RBC (Bld) [#/Vol] 2.81 10*6/uL Low 4.2-5.4 [facility] Comment on above: Performed By: #### L 500.3400, L500.2500, L100.0100 ####[facility] [address] [place], [address] RDW SD 49.7 fl High 35.1-43.9 [facility] Comment on above: Performed By: #### L 500.3400, L500.2500, L100.0100 ####[facility] [address] [place], [address] WBC (Bld) [#/Vol] 6.0 10*3/uL Normal 4.4-11.0 [facility] Comment on above: Performed By: #### L 500.3400, L500.2500, L100.0100 ####[facility] [address] [place], [address] Liver Profileon 04-30-2025 Albumin [Mass/Vol] 3.2 g/dL Low 3.5-5.0 [facility] Comment on above: Performed By: #### L 500.3400, L500.2500, L100.0100 ####[facility] [address] [place], [address] ALK PHOS 98 U/L Normal 35-104 [facility] Comment on above: Performed By: #### L 500.3400, L500.2500, L100.0100 ####[facility] [address] [place], [address] ALT [Catalytic activity/Vol] 32 U/L Normal <=34 [facility] Comment on above: Performed By: #### L 500.3400, L500.2500, L100.0100 ####[facility] [address] [place], [address] AST [Catalytic activity/Vol] 39 U/L High <=31 [facility] Comment on above: Performed By: #### L 500.3400, L500.2500, L100.0100 ####[facility] [address] [place], [address] Bilirubin [Mass/Vol] 0.67 mg/dL Normal 0.00-1.30 [facility] Comment on above: Performed By: #### L 500.3400, L500.2500, L100.0100 ####[facility] [address] [place], [address] Bilirubin.direct [Mass/Vol] 0.41 mg/dL High 0.00-0.30 [facility] Comment on above: Performed By: #### L 500.3400, L500.2500, L100.0100 ####[facility] [address] [place], [address] Globulin (S) [Mass/Vol] 2.6 g/dL Normal 2.2-4.2 [facility] Comment on above: Performed By: #### L 500.3400, L500.2500, L100.0100 ####[facility] [address] [place], [address] T PROT 5.9 g/dL Normal 5.9-8.4 [facility] Comment on above: Performed By: #### L 500.3400, L500.2500, L100.0100 ####[facility] [address] [place], [address] Magnesiumon 04-30-2025 Magnesium [Mass/Vol] 1.5 mg/dL Normal 1.5-2.2 [facility] Comment on above: Performed By: #### L 501.5200 ####[facility] [address] [place], [address] Basic Metabolic Profile (BMP )on 04-29-2025 BUN/CRE UNABLE TO CALCULATE Low 10-20 [facility] Comment on above: Performed By: #### L 500.2500, L500.3400, L501.5200, L100.0100 ####[facility] [address] [place], [address] Calcium [Mass/Vol] 8.2 mg/dL Normal 7.6-11.0 [facility] Comment on above: Performed By: #### L 500.2500, L500.3400, L501.5200, L100.0100 ####[facility] [address] [place], [address] Chloride [Moles/Vol] 103 mmol/L Normal 98-108 [facility] Comment on above: Performed By: #### L 500.2500, L500.3400, L501.5200, L100.0100 ####[facility] [address] [place], [address] CO2 [Moles/Vol] 26.0 mmol/L Normal 21.0-32.0 [facility] Comment on above: Performed By: #### L 500.2500, L500.3400, L501.5200, L100.0100 ####[facility] [address] [place], [address] Creatinine [Mass/Vol] 0.40 mg/dL Low 0.70-1.20 [facility] Comment on above: Performed By: #### L 500.2500, L500.3400, L501.5200, L100.0100 ####[facility] [address] [place], [address] ECRCL 148.53 ml/min Normal 50-250 [facility] Comment on above: Performed By: #### L 500.2500, L500.3400, L501.5200, L100.0100 ####[facility] [address] [place], [address] GAP 11 Normal 5-15 [facility] Comment on above: Performed By: #### L 500.2500, L500.3400, L501.5200, L100.0100 ####[facility] [address] [place], [address] GFR/1.73 sq M.predicted among non-blacks MDRD (S/P/Bld) [Vol rate/Area] 122 mL/min/{1.73_m2} Normal >60 [facility] Comment on above: Result Comment: mL/m in/1.73m2 CKD-EPI Creatinine Equation (2020) Performed By: #### L 500.2500, L500.3400, L501.5200, L100.0100 ####[facility] [address] [place], [address] Glucose [Mass/Vol] 126 mg/dL High 70-99 [facility] Comment on above: Performed By: #### L 500.2500, L500.3400, L501.5200, L100.0100 ####[facility] [address] [place], [address] Potassium [Moles/Vol] 2.8 mmol/L Low 3.3-5.1 [facility] Comment on above: Performed By: #### L 500.2500, L500.3400, L501.5200, L100.0100 ####[facility] [address] [place], [address] Sodium [Moles/Vol] 140 mmol/L Normal 133-145 [facility] Comment on above: Performed By: #### L 500.2500, L500.3400, L501.5200, L100.0100 ####[facility] [address] [place], [address] Urea nitrogen [Mass/Vol] mg/dL Low 4-19 [facility] Comment on above: Performed By: #### L 500.2500, L500.3400, L501.5200, L100.0100 ####[facility] [address] [place], [address] Bedside Glucoseon 04-29-2025 FINGERSTICK GLU 187 mg/dL High 74-106 [facility] Comment on above: Result Comment: CHAUNCEY GEMENT OF PATIENT CARE PER NURSING PROTOCOL Performed By: #### L 501.080 ####[facility] [address] [place], [address] FINGERSTICK GLU 121 mg/dL High 74-106 [facility] Comment on above: Result Comment: CHAUNCEY GEMENT OF PATIENT CARE PER NURSING PROTOCOL Performed By: #### L 501.080 ####[facility] [address] [place], [address] FINGERSTICK GLU 218 mg/dL High 74-106 [facility] Comment on above: Result Comment: CHAUNCEY GEMENT OF PATIENT CARE PER NURSING PROTOCOL Performed By: #### L 501.080 ####[facility] [address] [place], [address] FINGERSTICK GLU 132 mg/dL High 74-106 [facility] Comment on above: Result Comment: CHAUNCEY GEMENT OF PATIENT CARE PER NURSING PROTOCOL Performed By: #### L 501.080 ####[facility] [address] [place], [address] CBC W/Diff, Automatedon 06-0 1-2024 Absolute Lymph 1.02 X10 3/uL Normal 0.83-4.51 [facility] Comment on above: Performed By: #### L 500.2500, L500.3400, L501.5200, L100.0100 ####[facility] [address] [place], [address] Absolute Neut 5.3 X10 3/uL Normal 2.0-7.7 [facility] Comment on above: Performed By: #### L 500.2500, L500.3400, L501.5200, L100.0100 ####[facility] [address] [place], [address] Basophils/100 WBC (Bld) 0.4 % Normal 0-[address] [facility] Comment on above: Performed By: #### L 500.2500, L500.3400, L501.5200, L100.0100 ####[facility] [address] [place], [address] Eosinophils/100 WBC (Bld) 1.1 % Normal 0-5 [facility] Comment on above: Performed By: #### L 500.2500, L500.3400, L501.5200, L100.0100 ####[facility] [address] [place], [address] Erythrocyte distribution width (RBC) [Ratio] 12.2 % Normal 11.6-14.6 [facility] Comment on above: Performed By: #### L 500.2500, L500.3400, L501.5200, L100.0100 ####[facility] [address] [place], [address] Hematocrit (Bld) [Volume fraction] 28.7 % Low 37-47 [facility] Comment on above: Performed By: #### L 500.2500, L500.3400, L501.5200, L100.0100 ####[facility] [address] [place], [address] Hemoglobin (Bld) [Mass/Vol] 9.9 g/dL Low 12.0-15.0 [facility] Comment on above: Performed By: #### L 500.2500, L500.3400, L501.5200, L100.0100 ####[facility] [address] [place], [address] IG% 0.600 Normal 0.0-0.9 [facility] Comment on above: Result Comment: IG% - Immature Granulocytes (promyelocytes, myelocytes andmetamyelocytes) > 1% indicates that a LEFT SHIFT is Present. Performed By: #### L 500.2500, L500.3400, L501.5200, L100.0100 ####[facility] [address] [place], [address] Lymphocytes/100 WBC (Bld) 14.1 % Low 19-41 [facility] Comment on above: Performed By: #### L 500.2500, L500.3400, L501.5200, L100.0100 ####[facility] [address] [place], [address] MCH (RBC) [Entitic mass] 36.5 pg High 27.0-32.0 [facility] Comment on above: Performed By: #### L 500.2500, L500.3400, L501.5200, L100.0100 ####[facility] [address] [place], [address] MCHC (RBC) [Mass/Vol] 34.5 g/dL Normal 32-36 [facility] Comment on above: Performed By: #### L 500.2500, L500.3400, L501.5200, L100.0100 ####[facility] [address] [place], [address] MCV (RBC) [Entitic vol] 105.9 fL High 81-99 [facility] Comment on above: Performed By: #### L 500.2500, L500.3400, L501.5200, L100.0100 ####[facility] [address] [place], [address] Monocytes/100 WBC (Bld) 10.9 % High 0-10 [facility] Comment on above: Performed By: #### L 500.2500, L500.3400, L501.5200, L100.0100 ####[facility] [address] [place], [address] Neutrophils/100 WBC (Bld) 72.9 % High 47-70 [facility] Comment on above: Performed By: #### L 500.2500, L500.3400, L501.5200, L100.0100 ####[facility] [address] [place], [address] Nucleated RBC (Bld) [#/Vol] 0 10*3/uL Normal 0-5 [facility] Comment on above: Performed By: #### L 500.2500, L500.3400, L501.5200, L100.0100 ####[facility] [address] [place], [address] Platelet mean volume (Bld) [Entitic vol] 10.5 fL Normal 6.2-12.0 [facility] Comment on above: Performed By: #### L 500.2500, L500.3400, L501.5200, L100.0100 ####[facility] [address] [place], [address] Platelets (Bld) [#/Vol] 110 10*3/uL Low 150-450 [facility] Comment on above: Performed By: #### L 500.2500, L500.3400, L501.5200, L100.0100 ####[facility] [address] [place], [address] RBC (Bld) [#/Vol] 2.71 10*6/uL Low 4.2-5.4 [facility] Comment on above: Performed By: #### L 500.2500, L500.3400, L501.5200, L100.0100 ####[facility] [address] [place], [address] RDW SD 47.6 fl High 35.1-43.9 [facility] Comment on above: Performed By: #### L 500.2500, L500.3400, L501.5200, L100.0100 ####[facility] [address] [place], [address] WBC (Bld) [#/Vol] 7.2 10*3/uL Normal 4.4-11.0 [facility] Comment on above: Performed By: #### L 500.2500, L500.3400, L501.5200, L100.0100 ####[facility] [address] [place], [address] Liver Profileon 04-29-2025 Albumin [Mass/Vol] 3.2 g/dL Low 3.5-5.0 [facility] Comment on above: Performed By: #### L 500.2500, L500.3400, L501.5200, L100.0100 ####[facility] [address] [place], [address] ALK PHOS 108 U/L High 35-104 [facility] Comment on above: Performed By: #### L 500.2500, L500.3400, L501.5200, L100.0100 ####[facility] [address] [place], [address] ALT [Catalytic activity/Vol] 37 U/L High <=34 [facility] Comment on above: Performed By: #### L 500.2500, L500.3400, L501.5200, L100.0100 ####[facility] [address] [place], [address] AST [Catalytic activity/Vol] 56 U/L High <=31 [facility] Comment on above: Performed By: #### L 500.2500, L500.3400, L501.5200, L100.0100 ####[facility] [address] [place], [address] Bilirubin [Mass/Vol] 0.71 mg/dL Normal 0.00-1.30 [facility] [place] Comment on above: Performed By: #### L 500.2500, L500.3400, L501.5200, L100.0100 ####[facility] [address] [place], [address] Bilirubin.direct [Mass/Vol] 0.43 mg/dL High 0.00-0.30 [facility] Comment on above: Performed By: #### L 500.2500, L500.3400, L501.5200, L100.0100 ####[facility] [address] [place], [address] Globulin (S) [Mass/Vol] 2.4 g/dL Normal 2.2-4.2 [facility] Comment on above: Performed By: #### L 500.2500, L500.3400, L501.5200, L100.0100 ####[facility] [address] [place], [address] T PROT 5.6 g/dL Low 5.9-8.4 [facility] Comment on above: Performed By: #### L 500.2500, L500.3400, L501.5200, L100.0100 ####[facility] [address] [place], [address] Magnesiumon 04-29-2025 Magnesium [Mass/Vol] 1.5 mg/dL Normal 1.5-2.2 [facility] [place] Comment on above: Performed By: #### L 500.2500, L500.3400, L501.5200, L100.0100 ####[facility] [address] [place], [address] Phosphoruson 04-29-2025 Phosphate [Mass/Vol] 2.0 mg/dL Low 2.7-4.5 [facility] [place] Comment on above: Performed By: #### L 501.2300 ####[facility] [address] [place], [address] Basic Metabolic Profile (BMP )on 04-28-2025 BUN/CRE 6.9 RATIO Low 10-20 [facility] Comment on above: Performed By: #### L 500.2500, L500.3400, L501.5200, L501.2450 ####[facility] [address] [place], [address] Calcium [Mass/Vol] 8.3 mg/dL Normal 7.6-11.0 [facility] Comment on above: Performed By: #### L 500.2500, L500.3400, L501.5200, L501.2450 ####[facility] [address] [place], [address] Chloride [Moles/Vol] 100 mmol/L Normal 98-108 [facility] [place] Comment on above: Performed By: #### L 500.2500, L500.3400, L501.5200, L501.2450 ####[facility] [address] [place], [address] CO2 [Moles/Vol] 24.9 mmol/L Normal 21.0-32.0 [facility] Comment on above: Performed By: #### L 500.2500, L500.3400, L501.5200, L501.2450 ####[facility] [address] [place], [address] Creatinine [Mass/Vol] 0.50 mg/dL Low 0.70-1.20 [facility] Comment on above: Performed By: #### L 500.2500, L500.3400, L501.5200, L501.2450 ####[facility] [address] [place], [address] ECRCL 118.82 ml/min Normal 50-250 [facility] Comment on above: Performed By: #### L 500.2500, L500.3400, L501.5200, L501.2450 ####[facility] [address] [place], [address] GAP 12 Normal 5-15 [facility] Comment on above: Performed By: #### L 500.2500, L500.3400, L501.5200, L501.2450 ####[facility] [address] [place], [address] GFR/1.73 sq M.predicted among non-blacks MDRD (S/P/Bld) [Vol rate/Area] 115 mL/min/{1.73_m2} Normal >60 [facility] Comment on above: Result Comment: mL/m in/1.73m2 CKD-EPI Creatinine Equation (2020) Performed By: #### L 500.2500, L500.3400, L501.5200, L501.2450 ####[facility] [address] [place], [address] Glucose [Mass/Vol] 103 mg/dL High 70-99 [facility] Comment on above: Performed By: #### L 500.2500, L500.3400, L501.5200, L501.2450 ####[facility] [address] [place], [address] Potassium [Moles/Vol] 3.2 mmol/L Low 3.3-5.1 [facility] Comment on above: Performed By: #### L 500.2500, L500.3400, L501.5200, L501.2450 ####[facility] [address] [place], [address] Sodium [Moles/Vol] 137 mmol/L Normal 133-145 [facility] Comment on above: Performed By: #### L 500.2500, L500.3400, L501.5200, L501.2450 ####[facility] [address] [place], [address] Urea nitrogen [Mass/Vol] 3 mg/dL Low 4-19 [facility] Comment on above: Performed By: #### L 500.2500, L500.3400, L501.5200, L501.2450 ####[facility] [address] [place], [address] Bedside Glucoseon 04-28-2025 FINGERSTICK GLU 140 mg/dL High 74-106 [facility] Comment on above: Result Comment: CHAUNCEY GEMENT OF PATIENT CARE PER NURSING PROTOCOL Performed By: #### L 501.080 ####[facility] [address] [place], [address] FINGERSTICK GLU 181 mg/dL High 74-106 [facility] Comment on above: Result Comment: CHAUNCEY GEMENT OF PATIENT CARE PER NURSING PROTOCOL Performed By: #### L 501.080 ####[facility] [address] [place], [address] FINGERSTICK GLU 104 mg/dL Normal 74-106 [facility] Comment on above: Result Comment: CHAUNCEY GEMENT OF PATIENT CARE PER NURSING PROTOCOL Performed By: #### L 501.080 ####[facility] [address] [place], [address] CBC W/Diff, Automatedon 05-3 Absolute Lymph 0.95 X10 3/uL Normal 0.83-4.51 [facility] Comment on above: Performed By: #### L 501.2300, L100.0100 ####[facility] [address] [place], [address] Absolute Neut 5.9 X10 3/uL Normal 2.0-7.7 [facility] Comment on above: Performed By: #### L 501.2300, L100.0100 ####[facility] [address] [place], [address] Basophils/100 WBC (Bld) 0.3 % Normal 0-[address] [facility] Comment on above: Performed By: #### L 501.2300, L100.0100 ####[facility] [address] [place], [address] Eosinophils/100 WBC (Bld) 0.8 % Normal 0-5 [facility] Comment on above: Performed By: #### L 501.2300, L100.0100 ####[facility] [address] [place], [address] Erythrocyte distribution width (RBC) [Ratio] 12.2 % Normal 11.6-14.6 [facility] Comment on above: Performed By: #### L 501.2300, L100.0100 ####[facility] [address] [place], [address] Hematocrit (Bld) [Volume fraction] 34.3 % Low 37-47 [facility] Comment on above: Performed By: #### L 501.2300, L100.0100 ####[facility] [address] [place], [address] Hemoglobin (Bld) [Mass/Vol] 11.6 g/dL Low 12.0-15.0 [facility] Comment on above: Performed By: #### L 501.2300, L100.0100 ####[facility] [address] [place], [address] IG% 0.400 Normal 0.0-0.9 [facility] Comment on above: Result Comment: IG% - Immature Granulocytes (promyelocytes, myelocytes andmetamyelocytes) > 1% indicates that a LEFT SHIFT is Present. Performed By: #### L 501.2300, L100.0100 ####[facility] [address] [place], [address] Lymphocytes/100 WBC (Bld) 12.5 % Low 19-41 [facility] Comment on above: Performed By: #### L 501.2300, L100.0100 ####[facility] [address] [place], [address] MCH (RBC) [Entitic mass] 36.4 pg High 27.0-32.0 [facility] Comment on above: Performed By: #### L 501.2300, L100.0100 ####[facility] [address] [place], [address] MCHC (RBC) [Mass/Vol] 33.8 g/dL Normal 32-36 [facility] Comment on above: Performed By: #### L 501.2300, L100.0100 ####[facility] [address] [place], [address] MCV (RBC) [Entitic vol] 107.5 fL High 81-[address] [facility] Comment on above: Performed By: #### L 501.2300, L100.0100 ####[facility] [address] [place], [address] Monocytes/100 WBC (Bld) 8.0 % Normal 0-10 [facility] Comment on above: Performed By: #### L 501.2300, L100.0100 ####[facility] [address] [place], [address] Neutrophils/100 WBC (Bld) 78.0 % High 47-70 [facility] Comment on above: Performed By: #### L 501.2300, L100.0100 ####[facility] [address] [place], [address] Nucleated RBC (Bld) [#/Vol] 0 10*3/uL Normal 0-5 [facility] Comment on above: Performed By: #### L 501.2300, L100.0100 ####[facility] [address] [place], [address] Platelet mean volume (Bld) [Entitic vol] 10.3 fL Normal 6.2-12.0 [facility] Comment on above: Performed By: #### L 501.2300, L100.0100 ####[facility] [address] [place], [address] Platelets (Bld) [#/Vol] 119 10*3/uL Low 150-450 [facility] Comment on above: Performed By: #### L 501.2300, L100.0100 ####[facility] [address] [place], [address] RBC (Bld) [#/Vol] 3.19 10*6/uL Low 4.2-5.4 [facility] Comment on above: Performed By: #### L 501.2300, L100.0100 ####[facility] [address] [place], [address] RDW SD 48.2 fl High 35.1-43.9 [facility] Comment on above: Performed By: #### L 501.2300, L100.0100 ####[facility] [address] [place], [address] WBC (Bld) [#/Vol] 7.6 10*3/uL Normal 4.4-11.0 [facility] Comment on above: Performed By: #### L 501.2300, L100.0100 ####[facility] [address] [place], [address] Lipaseon 04-28-2025 Lipase [Catalytic activity/Vol] 533 U/L High 13-75 [facility] Comment on above: Result Comment: Lucie schultz note:LIPASE revised reference range effective 23.New Lipase methodology. Expected to produce lower valuesthan the previous assay method.NEW Reference Range: 13 - 75 U/L Performed By: #### L 500.2500, L500.3400, L501.5200, L501.2450 ####[facility] [address] [place], [address] Lipase measurementOrdered By : Canelo Myers on 04-28-2025 Lipase [Catalytic activity/Vol] 533 U/L High 13-75 [facility] Comment on above: Please note:LIPASE r evised reference range effective 23. New Lipase methodology. Expected to produce lower values than the previous assay method. NEW Reference Range: 13 - 75 U/L Liver Profileon 04-28-2025 Albumin [Mass/Vol] 3.7 g/dL Normal 3.5-5.0 [facility] Comment on above: Performed By: #### L 500.2500, L500.3400, L501.5200, L501.2450 ####[facility] [address] [place], [address] ALK PHOS 158 U/L High 35-104 [facility] Comment on above: Performed By: #### L 500.2500, L500.3400, L501.5200, L501.2450 ####[facility] [address] [place], [address] ALT [Catalytic activity/Vol] 72 U/L High <=34 [facility] Comment on above: Performed By: #### L 500.2500, L500.3400, L501.5200, L501.2450 ####[facility] [address] [place], [address] AST [Catalytic activity/Vol] 265 U/L High <=31 [facility] Comment on above: Performed By: #### L 500.2500, L500.3400, L501.5200, L501.2450 ####[facility] [address] [place], [address] Bilirubin [Mass/Vol] 1.26 mg/dL Normal 0.00-1.30 [facility] [place] Comment on above: Performed By: #### L 500.2500, L500.3400, L501.5200, L501.2450 ####[facility] [address] [place], [address] Bilirubin.direct [Mass/Vol] 0.79 mg/dL High 0.00-0.30 [facility] Comment on above: Performed By: #### L 500.2500, L500.3400, L501.5200, L501.2450 ####[facility] [address] [place], [address] Globulin (S) [Mass/Vol] 2.6 g/dL Normal 2.2-4.2 [facility] Comment on above: Performed By: #### L 500.2500, L500.3400, L501.5200, L501.2450 ####[facility] [address] [place], [address] T PROT 6.3 g/dL Normal 5.9-8.4 [facility] Comment on above: Performed By: #### L 500.2500, L500.3400, L501.5200, L501.2450 ####[facility] [address] [place], [address] Magnesiumon 04-28-2025 Magnesium [Mass/Vol] 1.5 mg/dL Normal 1.5-2.2 [facility] [place] Comment on above: Performed By: #### L 500.2500, L500.3400, L501.5200, L501.2450 ####[facility] [address] [place], [address] Phosphoruson 04-28-2025 Phosphate [Mass/Vol] 1.5 mg/dL Low 2.7-4.5 [facility] [place] Comment on above: Performed By: #### L 501.2300, L100.0100 ####[facility] [address] [place], [address] Basic Metabolic Profile (BMP )on 04-27-2025 BUN/CRE 9.1 RATIO Low 10-20 [facility] Comment on above: Performed By: #### L 501.9520, L500.4050, L300.3900, L500.3400, L501.2300, L501.5200, L500.2500, L100.0100 ####[facility] [address] [place], [address] Calcium [Mass/Vol] 8.0 mg/dL Normal 7.6-11.0 [facility] Comment on above: Performed By: #### L 501.9520, L500.4050, L300.3900, L500.3400, L501.2300, L501.5200, L500.2500, L100.0100 ####[facility] [address] [place], [address] Chloride [Moles/Vol] 96 mmol/L Low 98-108 [facility] [place] Comment on above: Performed By: #### L 501.9520, L500.4050, L300.3900, L500.3400, L501.2300, L501.5200, L500.2500, L100.0100 ####[facility] [address] [place], [address] CO2 [Moles/Vol] 16.0 mmol/L Low 21.0-32.0 [facility] Comment on above: Performed By: #### L 501.9520, L500.4050, L300.3900, L500.3400, L501.2300, L501.5200, L500.2500, L100.0100 ####[facility] [address] [place], [address] Creatinine [Mass/Vol] 0.69 mg/dL Low 0.70-1.20 [facility] Comment on above: Performed By: #### L 501.9520, L500.4050, L300.3900, L500.3400, L501.2300, L501.5200, L500.2500, L100.0100 ####[facility] [address] [place], [address] ECRCL 86.10 ml/min Normal 50-250 [facility] Comment on above: Performed By: #### L 501.9520, L500.4050, L300.3900, L500.3400, L501.2300, L501.5200, L500.2500, L100.0100 ####[facility] [address] [place], [address] GAP 22 High 5-15 [facility] Comment on above: Performed By: #### L 501.9520, L500.4050, L300.3900, L500.3400, L501.2300, L501.5200, L500.2500, L100.0100 ####[facility] [address] [place], [address] GFR/1.73 sq M.predicted among non-blacks MDRD (S/P/Bld) [Vol rate/Area] 107 mL/min/{1.73_m2} Normal >60 [facility] Comment on above: Result Comment: mL/m in/1.73m2 CKD-EPI Creatinine Equation (2020) Performed By: #### L 501.9520, L500.4050, L300.3900, L500.3400, L501.2300, L501.5200, L500.2500, L100.0100 ####[facility] [address] [place], [address] Glucose [Mass/Vol] 132 mg/dL High 70-99 [facility] Comment on above: Performed By: #### L 501.9520, L500.4050, L300.3900, L500.3400, L501.2300, L501.5200, L500.2500, L100.0100 ####[facility] [address] [place], [address] Potassium [Moles/Vol] 3.8 mmol/L Normal 3.3-5.1 [facility] Comment on above: Performed By: #### L 501.9520, L500.4050, L300.3900, L500.3400, L501.2300, L501.5200, L500.2500, L100.0100 ####[facility] [address] [place], [address] Sodium [Moles/Vol] 134 mmol/L Normal 133-145 [facility] Comment on above: Performed By: #### L 501.9520, L500.4050, L300.3900, L500.3400, L501.2300, L501.5200, L500.2500, L100.0100 ####[facility] [address] [place], [address] Urea nitrogen [Mass/Vol] 6 mg/dL Normal 4-19 [facility] Comment on above: Performed By: #### L 501.9520, L500.4050, L300.3900, L500.3400, L501.2300, L501.5200, L500.2500, L100.0100 ####[facility] [address] [place], [address] Bedside Glucoseon 04-27-2025 FINGERSTICK GLU 153 mg/dL High 74-106 [facility] Comment on above: Result Comment: CHAUNCEY GEMENT OF PATIENT CARE PER NURSING PROTOCOL Performed By: #### L 501.080 ####[facility] [address] [place], [address] FINGERSTICK GLU 149 mg/dL High 74-106 [facility] Comment on above: Result Comment: CHAUNCEY GEMENT OF PATIENT CARE PER NURSING PROTOCOL Performed By: #### L 501.080 ####[facility] [address] [place], [address] FINGERSTICK GLU 194 mg/dL High 74-106 [facility] Comment on above: Result Comment: CHAUNCEY GEMENT OF PATIENT CARE PER NURSING PROTOCOL Performed By: #### L 501.080 ####[facility] [address] [place], [address] FINGERSTICK GLU 107 mg/dL High 74-106 [facility] Comment on above: Result Comment: CHAUNCEY GEMENT OF PATIENT CARE PER NURSING PROTOCOL Performed By: #### L 501.080 ####[facility] [address] [place], [address] CBC W/Diff, Automatedon 05-3 0-2024 Absolute Lymph 0.83 X10 3/uL Normal 0.83-4.51 [facility] Comment on above: Performed By: #### L 501.9520, L500.4050, L300.3900, L500.3400, L501.2300, L501.5200, L500.2500, L100.0100 ####[facility] [address] [place], [address] Absolute Neut 9.6 X10 3/uL High 2.0-7.7 [facility] Comment on above: Performed By: #### L 501.9520, L500.4050, L300.3900, L500.3400, L501.2300, L501.5200, L500.2500, L100.0100 ####[facility] [address] [place], [address] Basophils/100 WBC (Bld) 0.3 % Normal 0-[address] [facility] Comment on above: Performed By: #### L 501.9520, L500.4050, L300.3900, L500.3400, L501.2300, L501.5200, L500.2500, L100.0100 ####[facility] [address] [place], [address] Eosinophils/100 WBC (Bld) 0.1 % Normal 0-5 [facility] Comment on above: Performed By: #### L 501.9520, L500.4050, L300.3900, L500.3400, L501.2300, L501.5200, L500.2500, L100.0100 ####[facility] [address] [place], [address] Erythrocyte distribution width (RBC) [Ratio] 12.7 % Normal 11.6-14.6 [facility] Comment on above: Performed By: #### L 501.9520, L500.4050, L300.3900, L500.3400, L501.2300, L501.5200, L500.2500, L100.0100 ####[facility] [address] [place], [address] Hematocrit (Bld) [Volume fraction] 39.2 % Normal 37-47 [facility] Comment on above: Performed By: #### L 501.9520, L500.4050, L300.3900, L500.3400, L501.2300, L501.5200, L500.2500, L100.0100 ####[facility] [address] [place], [address] Hemoglobin (Bld) [Mass/Vol] 13.5 g/dL Normal 12.0-15.0 [facility] Comment on above: Performed By: #### L 501.9520, L500.4050, L300.3900, L500.3400, L501.2300, L501.5200, L500.2500, L100.0100 ####[facility] [address] [place], [address] IG% 0.400 Normal 0.0-0.9 [facility] Comment on above: Result Comment: IG% - Immature Granulocytes (promyelocytes, myelocytes andmetamyelocytes) > 1% indicates that a LEFT SHIFT is Present. Performed By: #### L 501.9520, L500.4050, L300.3900, L500.3400, L501.2300, L501.5200, L500.2500, L100.0100 ####[facility] [address] [place], [address] Lymphocytes/100 WBC (Bld) 7.3 % Low 19-41 [facility] Comment on above: Performed By: #### L 501.9520, L500.4050, L300.3900, L500.3400, L501.2300, L501.5200, L500.2500, L100.0100 ####[facility] [address] [place], [address] MCH (RBC) [Entitic mass] 36.6 pg High 27.0-32.0 [facility] Comment on above: Performed By: #### L 501.9520, L500.4050, L300.3900, L500.3400, L501.2300, L501.5200, L500.2500, L100.0100 ####[facility] [address] [place], [address] MCHC (RBC) [Mass/Vol] 34.4 g/dL Normal 32-36 [facility] Comment on above: Performed By: #### L 501.9520, L500.4050, L300.3900, L500.3400, L501.2300, L501.5200, L500.2500, L100.0100 ####[facility] [address] [place], [address] MCV (RBC) [Entitic vol] 106.2 fL High 81-99 [facility] Comment on above: Performed By: #### L 501.9520, L500.4050, L300.3900, L500.3400, L501.2300, L501.5200, L500.2500, L100.0100 ####[facility] [address] [place], [address] Monocytes/100 WBC (Bld) 7.9 % Normal 0-10 [facility] Comment on above: Performed By: #### L 501.9520, L500.4050, L300.3900, L500.3400, L501.2300, L501.5200, L500.2500, L100.0100 ####[facility] [address] [place], [address] Neutrophils/100 WBC (Bld) 84.0 % High 47-70 [facility] Comment on above: Performed By: #### L 501.9520, L500.4050, L300.3900, L500.3400, L501.2300, L501.5200, L500.2500, L100.0100 ####[facility] [address] [place], [address] Nucleated RBC (Bld) [#/Vol] 0 10*3/uL Normal 0-5 [facility] Comment on above: Performed By: #### L 501.9520, L500.4050, L300.3900, L500.3400, L501.2300, L501.5200, L500.2500, L100.0100 ####[facility] [address] [place], [address] Platelet mean volume (Bld) [Entitic vol] 9.7 fL Normal 6.2-12.0 [facility] Comment on above: Performed By: #### L 501.9520, L500.4050, L300.3900, L500.3400, L501.2300, L501.5200, L500.2500, L100.0100 ####[facility] [address] [place], [address] Platelets (Bld) [#/Vol] 153 10*3/uL Normal 150-450 [facility] Comment on above: Performed By: #### L 501.9520, L500.4050, L300.3900, L500.3400, L501.2300, L501.5200, L500.2500, L100.0100 ####[facility] [address] [place], [address] RBC (Bld) [#/Vol] 3.69 10*6/uL Low 4.2-5.4 [facility] Comment on above: Performed By: #### L 501.9520, L500.4050, L300.3900, L500.3400, L501.2300, L501.5200, L500.2500, L100.0100 ####[facility] [address] [place], [address] RDW SD 49.7 fl High 35.1-43.9 [facility] Comment on above: Performed By: #### L 501.9520, L500.4050, L300.3900, L500.3400, L501.2300, L501.5200, L500.2500, L100.0100 ####[facility] [address] [place], [address] WBC (Bld) [#/Vol] 11.4 10*3/uL High 4.4-11.0 [facility] Comment on above: Performed By: #### L 501.9520, L500.4050, L300.3900, L500.3400, L501.2300, L501.5200, L500.2500, L100.0100 ####[facility] [address] [place], [place], [id number] Comprehensive Metabolic Prof ilon 04-27-2025 Albumin/Globulin [Mass ratio] 1.4 {ratio} Normal 0.9-2.4 [facility] Comment on above: Performed By: #### L 501.9520, L500.4050, L300.3900, L500.3400, L501.2300, L501.5200, L500.2500, L100.0100 ####[facility] [address] [place], [address] Hemoglobin A1con 04-27-2025 HbA1c (Bld) [Mass fraction] 5.6 % Normal <=5.6 [facility] Comment on above: Result Comment: Norm al < 5.7 % Prediabetic 5.7 - 6.4 % Diabetic >or= 6.5 % Please note range changes. Performed By: #### L 431.6997 ####[facility] [address] [place], [place], [id number] Hemoglobin A1c percentageOrd ered By: Julius Moncada on 04-27-2025 HbA1c (Bld) [Mass fraction] 5.6 % <5.7 [facility] Comment on above: Normal < 5.7 % Predi abetic 5.7 - 6.4 % Diabetic >or= 6.5 % Please note range changes. International normalized rat io (INR) calculationOrdered By: Julius Moncada on 04-27-2025 INR Coag (Bld) [Relative time] 1.0 {INR} [facility] Liver Profileon 04-27-2025 Albumin [Mass/Vol] 3.9 g/dL Normal 3.5-5.0 [facility] Comment on above: Performed By: #### L 501.9520, L500.4050, L300.3900, L500.3400, L501.2300, L501.5200, L500.2500, L100.0100 ####[facility] [address] [place], [place], [phone] ALK PHOS 98 U/L Normal 35-104 [facility] Comment on above: Performed By: #### L 501.9520, L500.4050, L300.3900, L500.3400, L501.2300, L501.5200, L500.2500, L100.0100 ####[facility] [address] [place], [address] ALT [Catalytic activity/Vol] 46 U/L High <=34 [facility] Comment on above: Performed By: #### L 501.9520, L500.4050, L300.3900, L500.3400, L501.2300, L501.5200, L500.2500, L100.0100 ####[facility] [address] [place], [place], [phone] AST [Catalytic activity/Vol] 96 U/L High <=31 [facility] Comment on above: Performed By: #### L 501.9520, L500.4050, L300.3900, L500.3400, L501.2300, L501.5200, L500.2500, L100.0100 ####[facility] [address] [place], [address] Bilirubin [Mass/Vol] 0.99 mg/dL Normal 0.00-1.30 [facility] Comment on above: Performed By: #### L 501.9520, L500.4050, L300.3900, L500.3400, L501.2300, L501.5200, L500.2500, L100.0100 ####[facility] [address] [place], [address] Bilirubin.direct [Mass/Vol] 0.54 mg/dL High 0.00-0.30 [facility] Comment on above: Performed By: #### L 501.9520, L500.4050, L300.3900, L500.3400, L501.2300, L501.5200, L500.2500, L100.0100 ####[facility] [address] [place], [address] Globulin (S) [Mass/Vol] 2.7 g/dL Normal 2.2-4.2 [facility] Comment on above: Performed By: #### L 501.9520, L500.4050, L300.3900, L500.3400, L501.2300, L501.5200, L500.2500, L100.0100 ####[facility] [address] [place], [address] T PROT 6.6 g/dL Normal 5.9-8.4 [facility] Comment on above: Performed By: #### L 501.9520, L500.4050, L300.3900, L500.3400, L501.2300, L501.5200, L500.2500, L100.0100 ####[facility] [address] [place], [address] Magnesiumon 04-27-2025 Magnesium [Mass/Vol] 0.9 mg/dL Invalid Interpretation Code 1.5-2.2 [facility] Comment on above: Result Comment: Crit ical Result(s) Called at:04/27/2025-02:13 by: Rachel.??Results read back by same. Performed By: #### L 501.9520, L500.4050, L300.3900, L500.3400, L501.2300, L501.5200, L500.2500, L100.0100 ####[facility] [address] [place], [place], [phone] Phosphoruson 04-27-2025 Phosphate [Mass/Vol] 3.3 mg/dL Normal 2.7-4.5 [facility] Comment on above: Performed By: #### L 501.9520, L500.4050, L300.3900, L500.3400, L501.2300, L501.5200, L500.2500, L100.0100 ####[facility] [address] [place], [place], [id number] Prothrombin Time w/INRon INR Coag (PPP) [Relative time] 1.0 {INR} Normal [facility] Comment on above: Performed By: #### L 501.9520, L500.4050, L300.3900, L500.3400, L501.2300, L501.5200, L500.2500, L100.0100 ####[facility] [address] [place], [place], [phone] PT Coag (PPP) [Time] 12.9 s Normal 11.7-14.9 [facility] Comment on above: Performed By: #### L 501.9520, L500.4050, L300.3900, L500.3400, L501.2300, L501.5200, L500.2500, L100.0100 ####[facility] [address] [place], [place], [phone] Prothrombin timeOrdered By: Julius Moncada on 04-27-2025 PT Coag (PPP) [Time] 12.9 s 11.7-14.9 [facility] TSH DL <= 0.005 mIU/L QnOrde red By: Julius Moncada on 04-27-2025 TSH Qn 4.010 uIU/mL 0.300-4.200 [facility] Comment on above: Previous reported re sult: 3.960 uIU/mLEdited by: BRITTNEY on 04/27/25:0236 AMENDED REPORT 04/27/25235 TSH previously reported as: 3.960 uIU/mL Thyroid Stim Hormone (TSH)on 04-27-2025 TSH 4.010 uIU/mL Normal 0.300-4.200 [facility] Comment on above: Result Comment: AMENDED REPORT 04/27/25235 TSH previously reported as: 3.960 uIU/mL Performed By: #### L 501.9520, L500.4050, L300.3900, L500.3400, L501.2300, L501.5200, L500.2500, L100.0100 ####[facility] [address] [place], [place], [address] Abdomen/Pelvis W IV Cont ONL Yon 04-26-2025 Abdomen/Pelvis W IV Cont ONLY Normal [facility] Absolute lymphocyte countOrd ered By: Humphrey Garcia on 04-26-2025 Lymphocytes Auto (Unsp spec) [#/Vol] 0.76 10*3/uL Low 0.83-4.51 [facility] Absolute neutrophil countOrd ered By: Humphrey Garcia on 04-26-2025 Neutrophils (Bld) [#/Vol] 8.8 10*3/uL High 2.0-7.7 [facility] Alcohol, Blood (Medical)-Ser umon 04-26-2025 SERUM ETOH < 10.1 Normal <=10.0 [facility] Comment on above: Result Comment: This test is for medical purposes only. The legaldefinition of intoxication varies according to local law. Performed By: #### L 501.9100 ####[facility] [address] [place], [address] Anion gap in Serum or Plasma Ordered By: Humphrey Garcia on 04-26-2025 Anion gap [Moles/Vol] 36 mmol/L High 5-15 [facility] Automated lymphocyte count a s percentage of total leukocytesOrdered By: Humphrey Garcia on 04-26-2025 Lymphocytes/100 WBC Auto (Unsp spec) 7.3 % Low 19-41 [facility] BUN/creatinine ratioOrdered By: Humphrey Garcia on 04-26-2025 Urea nitrogen/Creatinine [Mass ratio] 11.2 mg/mg 10-20 [facility] Basophil percentageOrdered B y: Humphrey Garcia on 04-26-2025 Basophils/100 WBC (Bld) 0.4 % 0-[address] [facility] Bilirubin Test strip Ql (U)O rdered By: Humphrey Garcia on 04-26-2025 Bilirubin Ql (U) Negative Negative [facility] Bilirubin, totalOrdered By: Humphrey Garcia on 04-26-2025 Bilirubin [Mass/Vol] 1.42 mg/dL High 0.00-1.30 [facility] CBC W/Diff, Automatedon 03-30 Absolute Lymph 0.76 X10 3/uL Low 0.83-4.51 [facility] Comment on above: Performed By: #### L 500.4050, L501.2450, L100.0100 ####[facility] [address] [place], [address] Absolute Neut 8.8 X10 3/uL High 2.0-7.7 [facility] Comment on above: Performed By: #### L 500.4050, L501.2450, L100.0100 ####[facility] [address] [place], [address] Basophils/100 WBC (Bld) 0.4 % Normal 0-[address] [facility] Comment on above: Performed By: #### L 500.4050, L501.2450, L100.0100 ####[facility] [address] [place], [address] Eosinophils/100 WBC (Bld) 0.0 % Normal 0-5 [facility] Comment on above: Performed By: #### L 500.4050, L501.2450, L100.0100 ####[facility] [address] [place], [address] Erythrocyte distribution width (RBC) [Ratio] 12.8 % Normal 11.6-14.6 [facility] Comment on above: Performed By: #### L 500.4050, L501.2450, L100.0100 ####[facility] [address] [place], [address] Hematocrit (Bld) [Volume fraction] 42.8 % Normal 37-47 [facility] Comment on above: Performed By: #### L 500.4050, L501.2450, L100.0100 ####[facility] [address] [place], [address] Hemoglobin (Bld) [Mass/Vol] 14.8 g/dL Normal 12.0-15.0 [facility] Comment on above: Performed By: #### L 500.4050, L501.2450, L100.0100 ####[facility] [address] [place], [address] IG% 0.700 Normal 0.0-0.9 [facility] Comment on above: Result Comment: IG% - Immature Granulocytes (promyelocytes, myelocytes andmetamyelocytes) > 1% indicates that a LEFT SHIFT is Present. Performed By: #### L 500.4050, L501.2450, L100.0100 ####[facility] [address] [place], [address] Lymphocytes/100 WBC (Bld) 7.3 % Low 19-41 [facility] Comment on above: Performed By: #### L 500.4050, L501.2450, L100.0100 ####[facility] [address] [place], [address] MCH (RBC) [Entitic mass] 36.2 pg High 27.0-32.0 [facility] Comment on above: Performed By: #### L 500.4050, L501.2450, L100.0100 ####[facility] [address] [place], [address] MCHC (RBC) [Mass/Vol] 34.6 g/dL Normal 32-36 [facility] Comment on above: Performed By: #### L 500.4050, L501.2450, L100.0100 ####[facility] [address] [place], [address] MCV (RBC) [Entitic vol] 104.6 fL High 81-99 [facility] Comment on above: Performed By: #### L 500.4050, L501.2450, L100.0100 ####[facility] [address] [place], [address] Monocytes/100 WBC (Bld) 7.0 % Normal 0-10 [facility] Comment on above: Performed By: #### L 500.4050, L501.2450, L100.0100 ####[facility] [address] [place], [address] Neutrophils/100 WBC (Bld) 84.6 % High 47-70 [facility] Comment on above: Performed By: #### L 500.4050, L501.2450, L100.0100 ####[facility] [address] [place], [address] Nucleated RBC (Bld) [#/Vol] 0.2 10*3/uL Normal 0-5 [facility] Comment on above: Performed By: #### L 500.4050, L501.2450, L100.0100 ####[facility] [address] [place], [address] Platelet mean volume (Bld) [Entitic vol] 10.0 fL Normal 6.2-12.0 [facility] Comment on above: Performed By: #### L 500.4050, L501.2450, L100.0100 ####[facility] [address] [place], [address] Platelets (Bld) [#/Vol] 175 10*3/uL Normal 150-450 [facility] Comment on above: Performed By: #### L 500.4050, L501.2450, L100.0100 ####[facility] [address] [place], [address] RBC (Bld) [#/Vol] 4.09 10*6/uL Low 4.2-5.4 [facility] Comment on above: Performed By: #### L 500.4050, L501.2450, L100.0100 ####[facility] [address] [place], [address] RDW SD 49.4 fl High 35.1-43.9 [facility] Comment on above: Performed By: #### L 500.4050, L501.2450, L100.0100 ####[facility] [address] [place], [address] WBC (Bld) [#/Vol] 10.4 10*3/uL Normal 4.4-11.0 [facility] Comment on above: Performed By: #### L 500.4050, L501.2450, L100.0100 ####[facility] [address] [place], [address] Carbon dioxide, total [Moles /volume] in Central venous bloodOrdered By: Humphrey Garcia on 04-26-2025 CO2 [Moles/Vol] 16.4 mmol/L Low 21.0-32.0 [facility] Chloride assayOrdered By: Edison Garcia on 04-26-2025 Chloride [Moles/Vol] 87 mmol/L Low 98-108 [facility] Comprehensive Metabolic Prof ilon 04-26-2025 Albumin [Mass/Vol] 4.5 g/dL Normal 3.5-5.0 [facility] Comment on above: Performed By: #### L 500.4050, L501.2450, L100.0100 ####[facility] [address] [place], [address] Albumin/Globulin [Mass ratio] 1.4 {ratio} Normal 0.9-2.4 [facility] Comment on above: Performed By: #### L 500.4050, L501.2450, L100.0100 ####[facility] [address] [place], [address] ALK PHOS 122 U/L High 35-104 [facility] Comment on above: Performed By: #### L 500.4050, L501.2450, L100.0100 ####[facility] [address] [place], [address] ALT [Catalytic activity/Vol] 62 U/L High <=34 [facility] Comment on above: Performed By: #### L 500.4050, L501.2450, L100.0100 ####[facility] [address] [place], [address] AST [Catalytic activity/Vol] 127 U/L High <=31 [facility] Comment on above: Performed By: #### L 500.4050, L501.2450, L100.0100 ####[facility] [address] [place], [address] Bilirubin [Mass/Vol] 1.42 mg/dL High 0.00-1.30 [facility] Comment on above: Performed By: #### L 500.4050, L501.2450, L100.0100 ####[facility] [address] [place], [address] BUN/CRE 11.2 RATIO Normal 10-20 [facility] Comment on above: Performed By: #### L 500.4050, L501.2450, L100.0100 ####[facility] [address] [place], [address] Calcium [Mass/Vol] 8.9 mg/dL Normal 7.6-11.0 [facility] Comment on above: Performed By: #### L 500.4050, L501.2450, L100.0100 ####[facility] [address] [place], [address] Chloride [Moles/Vol] 87 mmol/L Low 98-108 [facility] Comment on above: Performed By: #### L 500.4050, L501.2450, L100.0100 ####[facility] [address] [place], [address] CO2 [Moles/Vol] 16.4 mmol/L Low 21.0-32.0 [facility] Comment on above: Performed By: #### L 500.4050, L501.2450, L100.0100 ####[facility] [address] [place], [address] Creatinine [Mass/Vol] 0.70 mg/dL Normal 0.70-1.20 [facility] Comment on above: Performed By: #### L 500.4050, L501.2450, L100.0100 ####[facility] [address] [place], [address] ECRCL 84.87 ml/min Normal 50-250 [facility] Comment on above: Performed By: #### L 500.4050, L501.2450, L100.0100 ####[facility] [address] [place], [address] GAP 36 High 5-15 [facility] Comment on above: Performed By: #### L 500.4050, L501.2450, L100.0100 ####[facility] [address] [place], [address] GFR/1.73 sq M.predicted among non-blacks MDRD (S/P/Bld) [Vol rate/Area] 107 mL/min/{1.73_m2} Normal >60 [facility] Comment on above: Result Comment: mL/m in/1.73m2 CKD-EPI Creatinine Equation (2020) Performed By: #### L 500.4050, L501.2450, L100.0100 ####[facility] [address] [place], [address] Globulin (S) [Mass/Vol] 3.2 g/dL Normal 2.2-4.2 [facility] Comment on above: Performed By: #### L 500.4050, L501.2450, L100.0100 ####[facility] [address] [place], [address] Glucose [Mass/Vol] 156 mg/dL High 70-99 [facility] Comment on above: Performed By: #### L 500.4050, L501.2450, L100.0100 ####[facility] [address] [place], [address] Potassium [Moles/Vol] 2.8 mmol/L Low 3.3-5.1 [facility] Comment on above: Performed By: #### L 500.4050, L501.2450, L100.0100 ####[facility] [address] [place], [address] Sodium [Moles/Vol] 139 mmol/L Normal 133-145 [facility] Comment on above: Performed By: #### L 500.4050, L501.2450, L100.0100 ####[facility] [address] [place], [address] T PROT 7.7 g/dL Normal 5.9-8.4 [facility] Comment on above: Performed By: #### L 500.4050, L501.2450, L100.0100 ####[facility] [address] [place], [address] Urea nitrogen [Mass/Vol] 8 mg/dL Normal 4-19 [facility] Comment on above: Performed By: #### L 500.4050, L501.2450, L100.0100 ####[facility] [address] [place], [address] Emergency Department Summary on 04-26-2025 Emergency Department Summary Normal [facility] Eosinophil percentageOrdered By: Humphrey Garcia on 04-26-2025 Eosinophils/100 WBC (Bld) 0.0 % 0-5 [facility] Erythrocyte distribution wid th ratioOrdered By: Humphrey Garcia on 04-26-2025 Erythrocyte distribution width (RBC) [Ratio] 12.8 % 11.6-14.6 [facility] Erythrocyte distribution wid th standard deviationOrdered By: Humphrey Garcia on 04-26-2025 Erythrocyte distribution width (RBC) [Ratio] 49.4 fl High 35.1-43.9 [facility] Glomerular filtration rate ( GFR) estimation/1.73 sq m using serum, plasma, or whole bOrdered By: Humphrey Garcia on 04-26-2025 GFR/1.73 sq M.predicted among non-blacks MDRD (S/P/Bld) [Vol rate/Area] 107 mL/min/{1.73_m2} >60 [facility] Comment on above: mL/min/1.73m2 CKD-EP I Creatinine Equation (2020) H AND P Exam - [facility] 04-26-2025 H&P Exam - Hospitalist Normal [facility] Hematocrit Auto (Bld) [Volum e fraction]Ordered By: Humphrey Garcia on 04-26-2025 Hematocrit (Bld) [Volume fraction] 42.8 % 37-47 [facility] Hemoglobin measurementOrdere d By: Humphrey Garcia on 04-26-2025 Hemoglobin (Bld) [Mass/Vol] 14.8 g/dL 12.0-15.0 [facility] Immature granulocytes/100 WB C Auto (Bld)Ordered By: Humphrey Garcia on 04-26-2025 Immature granulocytes/100 WBC (Bld) 0.700 % 0.0-0.9 [facility] Comment on above: IG% - Immature Granu locytes (promyelocytes, myelocytes and metamyelocytes) > 1% indicates that a LEFT SHIFT is Present. Ketones Test strip Ql (U)Ord ered By: Humphrey Garcia on 04-26-2025 Ketones Ql (U) 150 mg/dl Abnormal Negative [facility] Comment on above: CRITICAL VALUE *HCRI TICAL VALUE CALLED TO [id number]/29/25 163Emilee Herzog.RESULTS READ BACK BY SAME. Laboratory - Chemistry and C hemistry - challengeOrdered By: Humphrey Garcia on 04-26-2025 AST [Catalytic activity/Vol] 127 U/L High <32 [facility] Lipaseon 04-26-2025 Lipase [Catalytic activity/Vol] 1045 U/L High 13-75 [facility] Comment on above: Result Comment: Lucie schultz note:LIPASE revised reference range effective 23.New Lipase methodology. Expected to produce lower valuesthan the previous assay method.NEW Reference Range: 13 - 75 U/L Performed By: #### L 500.4050, L501.2450, L100.0100 ####[facility] [address] [place], [address] Lipase measurementOrdered By : Humphrey Garcia on 04-26-2025 Lipase [Catalytic activity/Vol] 1045 U/L High 13-75 [facility] Comment on above: Please note:LIPASE r evised reference range effective 23. New Lipase methodology. Expected to produce lower values than the previous assay method. NEW Reference Range: 13 - 75 U/L MCV (mean corpuscular volume ) determinationOrdered By: Humphrey Garcia on 04-26-2025 MCV (RBC) [Entitic vol] 104.6 fL High 81-[address] [facility] Mean corpuscular hemoglobin (MCH) determinationOrdered By: Humphrey Garcia on 04-26-2025 MCH (RBC) [Entitic mass] 36.2 pg High 27.0-32.0 [facility] Mean corpuscular hemoglobin concentration (MCHC) determinationOrdered By: Humphrey Garcia on 04-26-2025 MCHC (RBC) [Mass/Vol] 34.6 g/dL 32-36 [facility] Mean platelet volume determi nationOrdered By: Humphrey Garcia on 04-26-2025 Platelet mean volume (Bld) [Entitic vol] 10.0 fL 6.2-12.0 [facility] Microscopic analysis of urin e for red blood cells (RBC)Ordered By: Humphrey Garcia on 04-26-2025 Microscopic analysis of urine for red blood cells (RBC) 0-5 SEEN /hpf 0-5 [facility] Monocyte percentageOrdered B y: Humphrey Garcia on 04-26-2025 Monocytes/100 WBC (Bld) 7.0 % 0-[address] [facility] Mucus LM Ql (Urine sed)Order ed By: Humphrey Garcia on 04-26-2025 Mucus Ql (Urine sed) 0 SEEN /hpf [facility] Neutrophil percentageOrdered By: Humphrey Garcia on 04-26-2025 Neutrophils/100 WBC (Bld) 84.6 % High 47-70 [facility] Nitrite Test strip Ql (U)Ord ered By: Humphrey Garcia on 04-26-2025 Nitrite Ql (U) Negative Negative [facility] Nucleated red blood cell per centageOrdered By: Humphrey Garcia on 04-26-2025 Nucleated RBC/100 WBC (Bld) [Ratio] 0.2 % 0-5 [facility] Platelet countOrdered By: Edison Garcia on 04-26-2025 Platelets (Bld) [#/Vol] 175 10*3/uL 150-450 [facility] Potassium measurement (mass/ volume)Ordered By: Humphrey Garcia on 04-26-2025 Potassium (Unsp spec) [Mass/Vol] 2.8 mmol/L Low 3.3-5.1 [facility] Protein Test strip Ql (U)Ord ered By: Humphrey Garcia on 04-26-2025 Protein Ql (U) 30 mg/dl High Negative [facility] Prothrombin Time w/INRon INR Coag (PPP) [Relative time] 1.0 {INR} Normal [facility] Comment on above: Performed By: #### L 300.3900 ####[facility] [address] [place], [address] PT Coag (PPP) [Time] 13.3 s Normal 11.7-14.9 [facility] Comment on above: Performed By: #### L 300.3900 ####[facility] [address] [place], [address] RBC Auto (Bld) [#/Vol]Ordere d By: Humphrey Garcia on 04-26-2025 RBC (Bld) [#/Vol] 4.09 10*6/uL Low 4.2-5.4 [facility] Serum creatinine measurement (mass/volume)Ordered By: Humphrey Garcia on 04-26-2025 Creatinine [Mass/Vol] 0.70 mg/dL 0.70-1.20 [facility] Serum globulin measurementOr dered By: Humphrey Garcia on 04-26-2025 Globulin (S) [Mass/Vol] 3.2 g/dL 2.2-4.[address] [facility] Serum glucose measurement (m ass/volume)Ordered By: Humphrey Garcia on 04-26-2025 Glucose [Mass/Vol] 156 mg/dL High 70-99 [facility] Serum or plasma alanine wilkerson otransferase (ALT) measurementOrdered By: Humphrey Garcia on 04-26-2025 ALT [Catalytic activity/Vol] 62 U/L High <35 [facility] Serum or plasma albumin alphonso urement (mass/volume)Ordered By: Humphrey Garcia on 04-26-2025 Albumin [Mass/Vol] 4.5 g/dL 3.5-5.0 [facility] Serum or plasma albumin/glob ulin mass ratioOrdered By: Humphrey Garcia on 04-26-2025 Albumin/Globulin [Mass ratio] 1.4 {ratio} 0.9-2.4 [facility] Serum or plasma alkaline trinity sphatase measurementOrdered By: Humphrey Garcia on 04-26-2025 ALP [Catalytic activity/Vol] 122 U/L High 35-104 [facility] Serum or plasma calcium alphonso urement (mass/volume)Ordered By: Humphrey Garcia on 04-26-2025 Calcium [Mass/Vol] 8.9 mg/dL 7.6-11.0 [facility] Serum or plasma ethanol alphonso urement (mass/volume)Ordered By: Humphrey Garcia on 04-26-2025 Ethanol [Mass/Vol] mg/dL <10.1 [facility] Comment on above: This test is for med ical purposes only. The legal definition of intoxication varies according to local law. Serum or plasma urea nitroge n measurement (mass/volume)Ordered By: Humphrey Garcia on 04-26-2025 Urea nitrogen [Mass/Vol] 8 mg/dL 4-19 [facility] Sodium levelOrdered By: Scout Garcia on 04-26-2025 Sodium [Moles/Vol] 139 mmol/L 133-145 [facility] [facility] Squamous epithelial cells de tection in urine sediment by light microscopyOrdered By: Humphrey Garcia on 04-26-2025 Epithelial cells.squamous LM Ql (Urine sed) 0-5 SEEN /hpf 5-10 [facility] Total proteinOrdered By: Carin Garcia on 04-26-2025 Protein [Mass/Vol] 7.7 g/dL 5.9-8.4 [facility] Urinalysis, Completeon 04-26 EPI,SQUAMOUS 0-5 SEEN Normal 5-10 [facility] Comment on above: Order Comment: CLEAN CATCH Performed By: #### L [id number] ####[facility] [address] [place], [address] RBC 0-5 SEEN Normal 0-5 [facility] Comment on above: Order Comment: CLEAN CATCH Performed By: #### L [id number] ####[facility] [address] [place], [address] BACTERIA 0 SEEN Normal None Seen [facility] Comment on above: Order Comment: CLEAN CATCH Performed By: #### L [id number] ####[facility] [address] [place], [address] Mucus Ql (Urine sed) 0 SEEN Normal [facility] Comment on above: Order Comment: CLEAN CATCH Performed By: #### L [id number] ####[facility] [address] [place], [address] WBC 0 SEEN Normal 0-5 [facility] Comment on above: Order Comment: CLEAN CATCH Performed By: #### L [id number] ####[facility] [address] [place], [place], [id number] Urine clarityOrdered By: Carin Garcia on 04-26-2025 Clarity (U) Clear Clear [facility] Urine color determinationOrd ered By: Humphrey Garcia on 04-26-2025 Color (U) Yellow Yellow [facility] Urine glucose detectionOrder ed By: Humphrey Garcia on 04-26-2025 Glucose Ql (U) 1000 mg/dl High Normal [facility] Urine leukocyte esterase det ection by dipstickOrdered By: Humphrey Garcia on 04-26-2025 Leukocyte esterase Test strip Ql (U) Negative Negative [facility] Urine pHOrdered By: Humphrey tyler on 04-26-2025 pH (U) 6.0 [pH] 5.0 - 8.0 [facility] Urine sediment bacteria coun t by microscopy (number/high power field)Ordered By: Humphrey Garcia on 04-26-2025 Bacteria LM.HPF (Urine sed) [#/Area] 0 /[HPF] None Seen [facility] Urine specific gravity measu rementOrdered By: Humphrey Garcia on 04-26-2025 Specific gravity (U) [Rel density] 1.010 1.002-1.030 [facility] Urine urobilinogen measureme ntOrdered By: Humphrey Garcia on 04-26-2025 Urobilinogen Ql (U) 1 mg/dl High Normal [facility] White blood cell (WBC) count Ordered By: Humphreyanuradha Garcia on 04-26-2025 WBC (Bld) [#/Vol] 10.4 10*3/uL 4.4-11.0 [facility] White blood cell countOrdere d By: Humphrey Garcia on 04-26-2025 White blood cell count 0 SEEN /hpf 0-[address] [facility] 12 Lead EKGon 04-11-2025 12 Lead EKG Normal [facility] Absolute lymphocyte countOrd ered By: Francisco Colon on 04-11-2025 Lymphocytes Auto (Unsp spec) [#/Vol] 2.10 10*3/uL 0.83-4.51 [facility] Absolute neutrophil countOrd ered By: Francisco Colon on 04-11-2025 Neutrophils (Bld) [#/Vol] 2.1 10*3/uL 2.0-7.7 [facility] Alcohol, Blood (Medical)-Ser umon 04-11-2025 SERUM ETOH 328.0 mg/dL Invalid Interpretation Code <=10.0 [facility] Comment on above: Result Comment: Crit ical Result(s) Called at:2346 by: LUISITO GEORGE??Results read back by same.This test is for medical purposes only. The legaldefinition of intoxication varies according to local law. Performed By: #### L 501.4021, L501.9100, L100.0100, L500.2500, L501.2450 ####[facility] [address] [place], [address] Anion gap in Serum or Plasma Ordered By: Francisco Colon on 04-11-2025 Anion gap [Moles/Vol] 16 mmol/L High 5-15 [facility] Automated lymphocyte count a s percentage of total leukocytesOrdered By: Francisco Colon on 04-11-2025 Lymphocytes/100 WBC Auto (Unsp spec) 42.0 % High 19-41 [facility] BUN/creatinine ratioOrdered By: Francisco Colon on 04-11-2025 Urea nitrogen/Creatinine [Mass ratio] 20.2 mg/mg High 10-20 [facility] Basic Metabolic Profile (BMP )on 04-11-2025 BUN/CRE 20.2 RATIO High 10-20 [facility] Comment on above: Performed By: #### L 501.4021, L501.9100, L100.0100, L500.2500, L501.2450 ####[facility] [address] [place], [address] Calcium [Mass/Vol] 8.8 mg/dL Normal 7.6-11.0 [facility] Comment on above: Performed By: #### L 501.4021, L501.9100, L100.0100, L500.2500, L501.2450 ####[facility] [address] [place], [address] Chloride [Moles/Vol] 100 mmol/L Normal 98-108 [facility] Comment on above: Performed By: #### L 501.4021, L501.9100, L100.0100, L500.2500, L501.2450 ####[facility] [address] [place], [address] CO2 [Moles/Vol] 28.2 mmol/L Normal 21.0-32.0 [facility] Comment on above: Performed By: #### L 501.4021, L501.9100, L100.0100, L500.2500, L501.2450 ####[facility] [address] [place], [address] Creatinine [Mass/Vol] 0.53 mg/dL Low 0.70-1.20 [facility] Comment on above: Performed By: #### L 501.4021, L501.9100, L100.0100, L500.2500, L501.2450 ####[facility] [address] [place], [address] ECRCL 112.09 ml/min Normal 50-250 [facility] Comment on above: Performed By: #### L 501.4021, L501.9100, L100.0100, L500.2500, L501.2450 ####[facility] [address] [place], [address] GAP 16 High 5-15 [facility] Comment on above: Performed By: #### L 501.4021, L501.9100, L100.0100, L500.2500, L501.2450 ####[facility] [address] [place], [address] GFR/1.73 sq M.predicted among non-blacks MDRD (S/P/Bld) [Vol rate/Area] 114 mL/min/{1.73_m2} Normal >60 [facility] Comment on above: Result Comment: mL/m in/1.73m2 CKD-EPI Creatinine Equation (2020) Performed By: #### L 501.4021, L501.9100, L100.0100, L500.2500, L501.2450 ####[facility] [address] [place], [address] Glucose [Mass/Vol] 131 mg/dL High 70-99 [facility] Comment on above: Performed By: #### L 501.4021, L501.9100, L100.0100, L500.2500, L501.2450 ####[facility] [address] [place], [address] Potassium [Moles/Vol] 3.2 mmol/L Low 3.3-5.1 [facility] Comment on above: Performed By: #### L 501.4021, L501.9100, L100.0100, L500.2500, L501.2450 ####[facility] [address] [place], [address] Sodium [Moles/Vol] 144 mmol/L Normal 133-145 [facility] Comment on above: Performed By: #### L 501.4021, L501.9100, L100.0100, L500.2500, L501.2450 ####[facility] [address] [place], [address] Urea nitrogen [Mass/Vol] 11 mg/dL Normal 4-19 [facility] Comment on above: Performed By: #### L 501.4021, L501.9100, L100.0100, L500.2500, L501.2450 ####[facility] [address] [place], [address] Basophil percentageOrdered B y: Francisco Colon on 04-11-2025 Basophils/100 WBC (Bld) 1.2 % High 0-[address] [facility] Bilirubin Test strip Ql (U)O rdered By: Francisco Colon on 04-11-2025 Bilirubin Ql (U) Negative Negative [facility] CBC W/Diff, Automatedon 03-29 Absolute Lymph 2.10 X10 3/uL Normal 0.83-4.51 [facility] Comment on above: Performed By: #### L 501.4021, L501.9100, L100.0100, L500.2500, L501.2450 ####[facility] [address] [place], [address] Absolute Neut 2.1 X10 3/uL Normal 2.0-7.7 [facility] Comment on above: Performed By: #### L 501.4021, L501.9100, L100.0100, L500.2500, L501.2450 ####[facility] [address] [place], [address] Basophils/100 WBC (Bld) 1.2 % High 0-[address] [facility] Comment on above: Performed By: #### L 501.4021, L501.9100, L100.0100, L500.2500, L501.2450 ####[facility] [address] [place], [address] Eosinophils/100 WBC (Bld) 0.8 % Normal 0-5 [facility] Comment on above: Performed By: #### L 501.4021, L501.9100, L100.0100, L500.2500, L501.2450 ####[facility] [address] [place], [address] Erythrocyte distribution width (RBC) [Ratio] 13.5 % Normal 11.6-14.6 [facility] Comment on above: Performed By: #### L 501.4021, L501.9100, L100.0100, L500.2500, L501.2450 ####[facility] [address] [place], [address] Hematocrit (Bld) [Volume fraction] 37.7 % Normal 37-47 [facility] Comment on above: Performed By: #### L 501.4021, L501.9100, L100.0100, L500.2500, L501.2450 ####[facility] [address] [place], [address] Hemoglobin (Bld) [Mass/Vol] 13.5 g/dL Normal 12.0-15.0 [facility] Comment on above: Performed By: #### L 501.4021, L501.9100, L100.0100, L500.2500, L501.2450 ####[facility] [address] [place], [address] IG% 0.200 Normal 0.0-0.9 [facility] Comment on above: Result Comment: IG% - Immature Granulocytes (promyelocytes, myelocytes andmetamyelocytes) > 1% indicates that a LEFT SHIFT is Present. Performed By: #### L 501.4021, L501.9100, L100.0100, L500.2500, L501.2450 ####[facility] [address] [place], [address] Lymphocytes/100 WBC (Bld) 42.0 % High 19-41 [facility] Comment on above: Performed By: #### L 501.4021, L501.9100, L100.0100, L500.2500, L501.2450 ####[facility] [address] [place], [address] MCH (RBC) [Entitic mass] 37.4 pg High 27.0-32.0 [facility] Comment on above: Performed By: #### L 501.4021, L501.9100, L100.0100, L500.2500, L501.2450 ####[facility] [address] [place], [address] MCHC (RBC) [Mass/Vol] 35.8 g/dL Normal 32-36 [facility] Comment on above: Performed By: #### L 501.4021, L501.9100, L100.0100, L500.2500, L501.2450 ####[facility] [address] [place], [address] MCV (RBC) [Entitic vol] 104.4 fL High 81-[address] [facility] Comment on above: Performed By: #### L 501.4021, L501.9100, L100.0100, L500.2500, L501.2450 ####[facility] [address] [place], [address] Monocytes/100 WBC (Bld) 13.2 % High 0-[address] [facility] Comment on above: Performed By: #### L 501.4021, L501.9100, L100.0100, L500.2500, L501.2450 ####[facility] [address] [place], [address] Neutrophils/100 WBC (Bld) 42.6 % Low 47-70 [facility] Comment on above: Performed By: #### L 501.4021, L501.9100, L100.0100, L500.2500, L501.2450 ####[facility] [address] [place], [address] Nucleated RBC (Bld) [#/Vol] 0.4 10*3/uL Normal 0-5 [facility] Comment on above: Performed By: #### L 501.4021, L501.9100, L100.0100, L500.2500, L501.2450 ####[facility] [address] [place], [address] Platelet mean volume (Bld) [Entitic vol] 9.6 fL Normal 6.2-12.0 [facility] Comment on above: Performed By: #### L 501.4021, L501.9100, L100.0100, L500.2500, L501.2450 ####[facility] [address] [place], [address] Platelets (Bld) [#/Vol] 246 10*3/uL Normal 150-450 [facility] Comment on above: Performed By: #### L 501.4021, L501.9100, L100.0100, L500.2500, L501.2450 ####[facility] [address] [place], [address] RBC (Bld) [#/Vol] 3.61 10*6/uL Low 4.2-5.4 [facility] Comment on above: Performed By: #### L 501.4021, L501.9100, L100.0100, L500.2500, L501.2450 ####[facility] [address] [place], [address] RDW SD 51.4 fl High 35.1-43.9 [facility] Comment on above: Performed By: #### L 501.4021, L501.9100, L100.0100, L500.2500, L501.2450 ####[facility] [address] [place], [address] WBC (Bld) [#/Vol] 5.0 10*3/uL Normal 4.4-11.0 [facility] Comment on above: Performed By: #### L 501.4021, L501.9100, L100.0100, L500.2500, L501.2450 ####[facility] [address] [place], [address] Carbon dioxide, total [Moles /volume] in Central venous bloodOrdered By: Francisco Colon on 04-11-2025 CO2 [Moles/Vol] 28.2 mmol/L 21.0-32.0 [facility] Chest PA and Lateralon 04-11 Chest PA and Lateral Normal [facility] Chloride assayOrdered By: Peyman Colon on 04-11-2025 Chloride [Moles/Vol] 100 mmol/L 98-108 [facility] Emergency Department Summary on 04-11-2025 Emergency Department Summary Normal [facility] Eosinophil percentageOrdered By: Francisco Colon on 04-11-2025 Eosinophils/100 WBC (Bld) 0.8 % 0-5 [facility] Erythrocyte distribution wid th ratioOrdered By: Francisco Colon on 04-11-2025 Erythrocyte distribution width (RBC) [Ratio] 13.5 % 11.6-14.6 [facility] Erythrocyte distribution wid th standard deviationOrdered By: Francisco Colon on 04-11-2025 Erythrocyte distribution width (RBC) [Ratio] 51.4 fl High 35.1-43.9 [facility] Glomerular filtration rate ( GFR) estimation/1.73 sq m using serum, plasma, or whole bOrdered By: Francisco Colon on 04-11-2025 GFR/1.73 sq M.predicted among non-blacks MDRD (S/P/Bld) [Vol rate/Area] 114 mL/min/{1.73_m2} >60 [facility] Comment on above: mL/min/1.73m2 CKD-EP I Creatinine Equation (2020) Hematocrit Auto (Bld) [Volum e fraction]Ordered By: Francisco Colon on 04-11-2025 Hematocrit (Bld) [Volume fraction] 37.7 % 37-47 [facility] Hemoglobin measurementOrdere d By: Francisco Colon on 04-11-2025 Hemoglobin (Bld) [Mass/Vol] 13.5 g/dL 12.0-15.0 [facility] Immature granulocytes/100 WB C Auto (Bld)Ordered By: Francisco Colon on 04-11-2025 Immature granulocytes/100 WBC (Bld) 0.200 % 0.0-0.9 [facility] Comment on above: IG% - Immature Granu locytes (promyelocytes, myelocytes and metamyelocytes) > 1% indicates that a LEFT SHIFT is Present. Ketones Test strip Ql (U)Ord ered By: Francisco Colon on 04-11-2025 Ketones Ql (U) Negative Negative [facility] L501.4021on 04-11-2025 Trop T High Sen < 6 Normal <=14 [facility] Comment on above: Performed By: #### L 501.4021, L501.9100, L100.0100, L500.2500, L501.2450 ####[facility] [address] [place], [place], [address] Lipaseon 04-11-2025 Lipase [Catalytic activity/Vol] 70 U/L Normal 13-75 [facility] Comment on above: Result Comment: Lucie schultz note:LIPASE revised reference range effective 23.New Lipase methodology. Expected to produce lower valuesthan the previous assay method.NEW Reference Range: 13 - 75 U/L Performed By: #### L 501.4021, L501.9100, L100.0100, L500.2500, L501.2450 ####[facility] [address] [place], [address] Lipase measurementOrdered By : Francisco Colon on 04-11-2025 Lipase [Catalytic activity/Vol] 70 U/L 13-75 [facility] Comment on above: Please note:LIPASE r evised reference range effective 23. New Lipase methodology. Expected to produce lower values than the previous assay method. NEW Reference Range: 13 - 75 U/L MCV (mean corpuscular volume ) determinationOrdered By: Francisco Colon on 04-11-2025 MCV (RBC) [Entitic vol] 104.4 fL High 81-[address] [facility] Mean corpuscular hemoglobin (MCH) determinationOrdered By: Francisco Colon on 04-11-2025 MCH (RBC) [Entitic mass] 37.4 pg High 27.0-32.0 [facility] Mean corpuscular hemoglobin concentration (MCHC) determinationOrdered By: Francisco Colon on 04-11-2025 MCHC (RBC) [Mass/Vol] 35.8 g/dL 32-36 [facility] Mean platelet volume determi nationOrdered By: Francisco Colon on 04-11-2025 Platelet mean volume (Bld) [Entitic vol] 9.6 fL 6.2-12.0 [facility] Microscopic analysis of urin e for red blood cells (RBC)Ordered By: Francisco Colon on 04-11-2025 Microscopic analysis of urine for red blood cells (RBC) 0 SEEN /hpf 0-5 [facility] Monocyte percentageOrdered B y: Francisco Colon on 04-11-2025 Monocytes/100 WBC (Bld) 13.2 % High 0-[address] [facility] Mucus LM Ql (Urine sed)Order ed By: Francisco Colon on 04-11-2025 Mucus Ql (Urine sed) 0 SEEN /hpf [facility] Neutrophil percentageOrdered By: Francisco Colon on 04-11-2025 Neutrophils/100 WBC (Bld) 42.6 % Low 47-70 [facility] Nitrite Test strip Ql (U)Ord ered By: Francisco Colon on 04-11-2025 Nitrite Ql (U) Negative Negative [facility] Nucleated red blood cell per centageOrdered By: Francisco Colon on 04-11-2025 Nucleated RBC/100 WBC (Bld) [Ratio] 0.4 % 0-5 [facility] Platelet countOrdered By: Peyman Colon on 04-11-2025 Platelets (Bld) [#/Vol] 246 10*3/uL 150-450 [facility] Potassium measurement (mass/ volume)Ordered By: Francisco Colon on 04-11-2025 Potassium (Unsp spec) [Mass/Vol] 3.2 mmol/L Low 3.3-5.1 [facility] Protein Test strip Ql (U)Ord ered By: Francisco Colon on 04-11-2025 Protein Ql (U) 15 mg/dl High Negative [facility] RBC Auto (Bld) [#/Vol]Ordere d By: Francisco Colon on 04-11-2025 RBC (Bld) [#/Vol] 3.61 10*6/uL Low 4.2-5.4 [facility] Serum creatinine measurement (mass/volume)Ordered By: Francisco Colon on 04-11-2025 Creatinine [Mass/Vol] 0.53 mg/dL Low 0.70-1.20 [facility] Serum glucose measurement (m ass/volume)Ordered By: Francisco Colon on 04-11-2025 Glucose [Mass/Vol] 131 mg/dL High 70-99 [facility] Serum or plasma calcium alphonso urement (mass/volume)Ordered By: Francisco Colon on 04-11-2025 Calcium [Mass/Vol] 8.8 mg/dL 7.6-11.0 [facility] Serum or plasma ethanol alphonso urement (mass/volume)Ordered By: Francisco Colon on 04-11-2025 Ethanol [Mass/Vol] 328.0 mg/dL High <10.1 [facility] Comment on above: Critical Result(s) C alled at:2346 by: LUISITO SONI TO CELINA LUJAN Results read back by same.This test is for medical purposes only. The legal definition of intoxication varies according to local law. Serum or plasma urea nitroge n measurement (mass/volume)Ordered By: Francisco Colon on 04-11-2025 Urea nitrogen [Mass/Vol] 11 mg/dL 4-19 [facility] Sodium levelOrdered By: Francisco Colon on 04-11-2025 Sodium [Moles/Vol] 144 mmol/L 133-145 [facility] Squamous epithelial cells de tection in urine sediment by light microscopyOrdered By: Francisco Colon on 04-11-2025 Epithelial cells.squamous LM Ql (Urine sed) 0 SEEN /hpf 5-10 [facility] Troponin T.cardiac [Mass/vol ume] in Serum or Plasma by High sensitivity methodOrdered By: Francisco Colon on 04-11-2025 Troponin T.cardiac High sensitivity method [Mass/Vol] < 6 ng/L <14 [facility] Urinalysis, Completeon 04-11 BACTERIA 0 SEEN Normal None Seen [facility] Comment on above: Order Comment: [place] CTOR TO SPECIFY Performed By: #### L 400.0001 ####[facility] [address] [place], [address] EPI,SQUAMOUS 0 SEEN Normal 5-10 [facility] Comment on above: Order Comment: [place] CTOR TO SPECIFY Performed By: #### L 400.0001 ####[facility] [address] [place], [address] Mucus Ql (Urine sed) 0 SEEN Normal [facility] Comment on above: Order Comment: [place] CTOR TO SPECIFY Performed By: #### L 400.0001 ####[facility] [address] [place], [address] RBC 0 SEEN Normal 0-5 [facility] Comment on above: Order Comment: [place] CTOR TO SPECIFY Performed By: #### L 400.0001 ####[facility] [address] [place], [address] WBC 0 SEEN Normal 0-5 [facility] Comment on above: Order Comment: [place] CTOR TO SPECIFY Performed By: #### L 400.0001 ####[facility] [address] [place], [address] Urine clarityOrdered By: Rommel Colon on 04-11-2025 Clarity (U) Clear Clear [facility] Urine color determinationOrd ered By: Francisco Colon on 04-11-2025 Color (U) Yellow Yellow [facility] Urine glucose detectionOrder ed By: Francisco Colon on 04-11-2025 Glucose Ql (U) Normal mg/dl Normal [facility] Urine leukocyte esterase det ection by dipstickOrdered By: Francisco Colon on 04-11-2025 Leukocyte esterase Test strip Ql (U) Negative Negative [facility] Urine pHOrdered By: Francisco stuart on 04-11-2025 pH (U) 7.0 [pH] 5.0 - 8.0 [facility] Urine sediment bacteria coun t by microscopy (number/high power field)Ordered By: Francisco Colon on 04-11-2025 Bacteria LM.HPF (Urine sed) [#/Area] 0 /[HPF] None Seen [facility] Urine specific gravity measu rementOrdered By: Francisco Colon on 04-11-2025 Specific gravity (U) [Rel density] 1.010 1.002-1.030 [facility] Urine urobilinogen measureme ntOrdered By: Francisco Colon on 04-11-2025 Urobilinogen Ql (U) Normal mg/dl Normal [facility] White blood cell (WBC) count Ordered By: Francisco Colon on 04-11-2025 WBC (Bld) [#/Vol] 5.0 10*3/uL 4.4-11.0 [facility] White blood cell countOrdere d By: Francisco Colon on 04-11-2025 White blood cell count 0 SEEN /hpf 0-[address] [facility] 12 Lead EKGon 04-04-2025 12 Lead EKG Normal [facility] Abdomen/Pelvis W IV Cont ONL Yon 04-04-2025 Abdomen/Pelvis W IV Cont ONLY Normal [facility] Absolute lymphocyte countOrd ered By: ED PROVIDER on 04-04-2025 Lymphocytes Auto (Unsp spec) [#/Vol] 1.23 10*3/uL 0.83-4.51 [facility] Absolute neutrophil countOrd ered By: ED PROVIDER on 04-04-2025 Neutrophils (Bld) [#/Vol] 6.8 10*3/uL 2.0-7.7 [facility] Anion gap in Serum or Plasma Ordered By: Imani Knight on 04-04-2025 Anion gap [Moles/Vol] 18 mmol/L High 5-15 [facility] Automated lymphocyte count a s percentage of total leukocytesOrdered By: ED PROVIDER on 04-04-2025 Lymphocytes/100 WBC Auto (Unsp spec) 14.0 % Low 19-41 [facility] BUN/creatinine ratioOrdered By: Imani Knight on 04-04-2025 Urea nitrogen/Creatinine [Mass ratio] 8.7 mg/mg Low 10-20 [facility] Basic Metabolic Profile (BMP )on 04-04-2025 BUN/CRE 8.7 RATIO Low 10-20 [facility] Comment on above: Performed By: #### L 100.0100, L500.2500, L501.4021 ####[facility] [address] [place], [address] Calcium [Mass/Vol] 8.4 mg/dL Normal 7.6-11.0 [facility] Comment on above: Performed By: #### L 100.0100, L500.2500, L501.4021 ####[facility] [address] [place], [address] Chloride [Moles/Vol] 94 mmol/L Low 98-108 [facility] Comment on above: Performed By: #### L 100.0100, L500.2500, L501.4021 ####[facility] [address] [place], [address] CO2 [Moles/Vol] 27.3 mmol/L Normal 21.0-32.0 [facility] Comment on above: Performed By: #### L 100.0100, L500.2500, L501.4021 ####[facility] [address] [place], [address] Creatinine [Mass/Vol] 0.55 mg/dL Low 0.70-1.20 [facility] Comment on above: Performed By: #### L 100.0100, L500.2500, L501.4021 ####[facility] [address] [place], [address] GAP 18 High 5-15 [facility] Comment on above: Performed By: #### L 100.0100, L500.2500, L501.4021 ####[facility] [address] [place], [address] GFR/1.73 sq M.predicted among non-blacks MDRD (S/P/Bld) [Vol rate/Area] 113 mL/min/{1.73_m2} Normal >60 [facility] Comment on above: Result Comment: mL/m in/1.73m2 CKD-EPI Creatinine Equation (2020) Performed By: #### L 100.0100, L500.2500, L501.4021 ####[facility] [address] [place], [address] Glucose [Mass/Vol] 131 mg/dL High 70-99 [facility] Comment on above: Performed By: #### L 100.0100, L500.2500, L501.4021 ####[facility] [address] [place], [address] Potassium [Moles/Vol] 2.9 mmol/L Low 3.3-5.1 [facility] Comment on above: Performed By: #### L 100.0100, L500.2500, L501.4021 ####[facility] [address] [place], [address] Sodium [Moles/Vol] 139 mmol/L Normal 133-145 [facility] Comment on above: Performed By: #### L 100.0100, L500.2500, L501.4021 ####[facility] [address] [place], [address] Urea nitrogen [Mass/Vol] 5 mg/dL Normal 4-19 [facility] Comment on above: Performed By: #### L 100.0100, L500.2500, L501.4021 ####[facility] [address] [place], [address] Basophil percentageOrdered B y: ED PROVIDER on 04-04-2025 Basophils/100 WBC (Bld) 0.7 % 0-[address] [facility] Bilirubin directOrdered By: Imani Knight on 04-04-2025 Bilirubin.direct [Mass/Vol] 0.67 mg/dL High 0.00-0.30 [facility] Bilirubin, totalOrdered By: Imani Knight on 04-04-2025 Bilirubin [Mass/Vol] 1.26 mg/dL 0.00-1.30 [facility] CBC W/Diff, Automatedon Absolute Lymph 1.23 X10 3/uL Normal 0.83-4.51 [facility] Comment on above: Performed By: #### L 100.0100, L500.2500, L501.4021 ####[facility] [address] [place], [address] Absolute Neut 6.8 X10 3/uL Normal 2.0-7.7 [facility] Comment on above: Performed By: #### L 100.0100, L500.2500, L501.4021 ####[facility] [address] [place], [address] Basophils/100 WBC (Bld) 0.7 % Normal 0-[address] [facility] Comment on above: Performed By: #### L 100.0100, L500.2500, L501.4021 ####[facility] [address] [place], [address] Eosinophils/100 WBC (Bld) 0.2 % Normal 0-5 [facility] Comment on above: Performed By: #### L 100.0100, L500.2500, L501.4021 ####[facility] [address] [place], [address] Erythrocyte distribution width (RBC) [Ratio] 13.5 % Normal 11.6-14.6 [facility] Comment on above: Performed By: #### L 100.0100, L500.2500, L501.4021 ####[facility] [address] [place], [address] Hematocrit (Bld) [Volume fraction] 40.3 % Normal 37-47 [facility] Comment on above: Performed By: #### L 100.0100, L500.2500, L501.4021 ####[facility] [address] [place], [address] Hemoglobin (Bld) [Mass/Vol] 14.3 g/dL Normal 12.0-15.0 [facility] Comment on above: Performed By: #### L 100.0100, L500.2500, L501.4021 ####[facility] [address] [place], [address] IG% 0.300 Normal 0.0-0.9 [facility] Comment on above: Result Comment: IG% - Immature Granulocytes (promyelocytes, myelocytes andmetamyelocytes) > 1% indicates that a LEFT SHIFT is Present. Performed By: #### L 100.0100, L500.2500, L501.4021 ####[facility] [address] [place], [address] Lymphocytes/100 WBC (Bld) 14.0 % Low 19-41 [facility] Comment on above: Performed By: #### L 100.0100, L500.2500, L501.4021 ####[facility] [address] [place], [address] MCH (RBC) [Entitic mass] 35.4 pg High 27.0-32.0 [facility] Comment on above: Performed By: #### L 100.0100, L500.2500, L501.4021 ####[facility] [address] [place], [address] MCHC (RBC) [Mass/Vol] 35.5 g/dL Normal 32-36 [facility] Comment on above: Performed By: #### L 100.0100, L500.2500, L501.4021 ####[facility] [address] [place], [address] MCV (RBC) [Entitic vol] 99.8 fL High 81-[address] [facility] Comment on above: Performed By: #### L 100.0100, L500.2500, L501.4021 ####[facility] [address] [place], [address] Monocytes/100 WBC (Bld) 7.8 % Normal 0-[address] [facility] Comment on above: Performed By: #### L 100.0100, L500.2500, L501.4021 ####[facility] [address] [place], [address] Neutrophils/100 WBC (Bld) 77.0 % High 47-70 [facility] Comment on above: Performed By: #### L 100.0100, L500.2500, L501.4021 ####[facility] [address] [place], [address] Nucleated RBC (Bld) [#/Vol] 0.2 10*3/uL Normal 0-5 [facility] Comment on above: Performed By: #### L 100.0100, L500.2500, L501.4021 ####[facility] [address] [place], [address] Platelet mean volume (Bld) [Entitic vol] 10.0 fL Normal 6.2-12.0 [facility] Comment on above: Performed By: #### L 100.0100, L500.2500, L501.4021 ####[facility] [address] [place], [address] Platelets (Bld) [#/Vol] 186 10*3/uL Normal 150-450 [facility] Comment on above: Performed By: #### L 100.0100, L500.2500, L501.4021 ####[facility] [address] [place], [address] RBC (Bld) [#/Vol] 4.04 10*6/uL Low 4.2-5.4 [facility] Comment on above: Performed By: #### L 100.0100, L500.2500, L501.4021 ####[facility] [address] [place], [address] RDW SD 50.3 fl High 35.1-43.9 [facility] Comment on above: Performed By: #### L 100.0100, L500.2500, L501.4021 ####[facility] [address] [place], [address] WBC (Bld) [#/Vol] 8.8 10*3/uL Normal 4.4-11.0 [facility] Comment on above: Performed By: #### L 100.0100, L500.2500, L501.4021 ####[facility] [address] [place], [address] Carbon dioxide, total [Moles /volume] in Central venous bloodOrdered By: Imani Knight on 04-04-2025 CO2 [Moles/Vol] 27.3 mmol/L 21.0-32.0 [facility] Chest 1 View (Portable)on Chest 1 View (Portable) Normal [facility] Chloride assayOrdered By: Nash Knight on 04-04-2025 Chloride [Moles/Vol] 94 mmol/L Low 98-108 [facility] Emergency Department Summary on 04-04-2025 Emergency Department Summary Normal [facility] Eosinophil percentageOrdered By: ED PROVIDER on 04-04-2025 Eosinophils/100 WBC (Bld) 0.2 % 0-5 [facility] Erythrocyte distribution wid th ratioOrdered By: ED PROVIDER on 04-04-2025 Erythrocyte distribution width (RBC) [Ratio] 13.5 % 11.6-14.6 [facility] Erythrocyte distribution wid th standard deviationOrdered By: ED PROVIDER on 04-04-2025 Erythrocyte distribution width (RBC) [Ratio] 50.3 fl High 35.1-43.9 [facility] Glomerular filtration rate ( GFR) estimation/1.73 sq m using serum, plasma, or whole bOrdered By: Imani Knight on 04-04-2025 GFR/1.73 sq M.predicted among non-blacks MDRD (S/P/Bld) [Vol rate/Area] 113 mL/min/{1.73_m2} >60 [facility] Comment on above: mL/min/1.73m2 CKD-EP I Creatinine Equation (2020) Hematocrit Auto (Bld) [Volum e fraction]Ordered By: ED PROVIDER on 04-04-2025 Hematocrit (Bld) [Volume fraction] 40.3 % 37-47 [facility] Hemoglobin measurementOrdere d By: ED PROVIDER on 04-04-2025 Hemoglobin (Bld) [Mass/Vol] 14.3 g/dL 12.0-15.0 [facility] Immature granulocytes/100 WB C Auto (Bld)Ordered By: ED PROVIDER on 04-04-2025 Immature granulocytes/100 WBC (Bld) 0.300 % 0.0-0.9 [facility] Comment on above: IG% - Immature Granu locytes (promyelocytes, myelocytes and metamyelocytes) > 1% indicates that a LEFT SHIFT is Present. L499.0042on 04-04-2025 Trop T High Sen < 6 Normal <=14 [facility] Comment on above: Performed By: #### L 499.0042 ####[facility] [address] [place], [address] L499.0043on 04-04-2025 Trop T High Sen Normal <=14 [facility] Comment on above: Result Comment: CHUY ENT DISCHARGED Performed By: #### L 499.0043 ####[facility] [address] [place], [address] L501.4021on 04-04-2025 Trop T High Sen < 6 Normal <=14 [facility] Comment on above: Performed By: #### L 100.0100, L500.2500, L501.4021 ####[facility] [address] [place], [address] Laboratory - Chemistry and C hemistry - challengeOrdered By: Imani Knight on 04-04-2025 AST [Catalytic activity/Vol] 75 U/L High <32 [facility] Lipaseon 04-04-2025 Lipase [Catalytic activity/Vol] 26 U/L Normal 13-75 [facility] Comment on above: Result Comment: Lucie schultz note:LIPASE revised reference range effective 23.New Lipase methodology. Expected to produce lower valuesthan the previous assay method.NEW Reference Range: 13 - 75 U/L Performed By: #### L 501.2450, L500.3400, L501.5200 ####[facility] [address] [place], [address] Lipase measurementOrdered By : Imani Knight on 04-04-2025 Lipase [Catalytic activity/Vol] 26 U/L 13-75 [facility] Comment on above: Please note:LIPASE r evised reference range effective 23. New Lipase methodology. Expected to produce lower values than the previous assay method. NEW Reference Range: 13 - 75 U/L Liver Profileon 04-04-2025 Albumin [Mass/Vol] 4.1 g/dL Normal 3.5-5.0 [facility] Comment on above: Performed By: #### L 501.2450, L500.3400, L501.5200 ####[facility] [address] [place], [address] ALK PHOS 91 U/L Normal 35-104 [facility] Comment on above: Performed By: #### L 501.2450, L500.3400, L501.5200 ####[facility] [address] [place], [address] ALT [Catalytic activity/Vol] 44 U/L High <=34 [facility] Comment on above: Performed By: #### L 501.2450, L500.3400, L501.5200 ####[facility] [address] [place], [address] AST [Catalytic activity/Vol] 75 U/L High <=31 [facility] Comment on above: Performed By: #### L 501.2450, L500.3400, L501.5200 ####[facility] [address] [place], [address] Bilirubin [Mass/Vol] 1.26 mg/dL Normal 0.00-1.30 [facility] Comment on above: Performed By: #### L 501.2450, L500.3400, L501.5200 ####[facility] [address] [place], [address] Bilirubin.direct [Mass/Vol] 0.67 mg/dL High 0.00-0.30 [facility] Comment on above: Performed By: #### L 501.2450, L500.3400, L501.5200 ####[facility] [address] [place], [address] Globulin (S) [Mass/Vol] 3.3 g/dL Normal 2.2-4.2 [facility] Comment on above: Performed By: #### L 501.2450, L500.3400, L501.5200 ####[facility] [address] [place], [address] T PROT 7.3 g/dL Normal 5.9-8.4 [facility] Comment on above: Performed By: #### L 501.2450, L500.3400, L501.5200 ####[facility] [address] [place], [address] MCV (mean corpuscular volume ) determinationOrdered By: ED PROVIDER on 04-04-2025 MCV (RBC) [Entitic vol] 99.8 fL High 81-[address] [facility] Magnesiumon 04-04-2025 Magnesium [Mass/Vol] 0.6 mg/dL Invalid Interpretation Code 1.5-2.2 [facility] Comment on above: Result Comment: Crit ical Result(s) Called at: 04/04/2025-12:09 by: Francesco Burtonssandra Gurinder.??Results read back by same. Performed By: #### L 501.2450, L500.3400, L501.5200 ####[facility] [address] [place], [address] Magnesium measurement (mass/ volume)Ordered By: Imani Knight on 04-04-2025 Magnesium (Unsp spec) [Mass/Vol] 0.6 mg/dL Low 1.5-2.2 [facility] Comment on above: Critical Result(s) C alled at: 04/04/2025-12:09 by: Ru Null to Meredith Fairchild. Results read back by same. Mean corpuscular hemoglobin (MCH) determinationOrdered By: ED PROVIDER on 04-04-2025 MCH (RBC) [Entitic mass] 35.4 pg High 27.0-32.0 [facility] Mean corpuscular hemoglobin concentration (MCHC) determinationOrdered By: ED PROVIDER on 04-04-2025 MCHC (RBC) [Mass/Vol] 35.5 g/dL 32-36 [facility] Mean platelet volume determi nationOrdered By: ED PROVIDER on 04-04-2025 Platelet mean volume (Bld) [Entitic vol] 10.0 fL 6.2-12.0 [facility] Monocyte percentageOrdered B y: ED PROVIDER on 04-04-2025 Monocytes/100 WBC (Bld) 7.8 % 0-[address] [facility] Neutrophil percentageOrdered By: ED PROVIDER on 04-04-2025 Neutrophils/100 WBC (Bld) 77.0 % High 47-70 [facility] No Panel InformationOrdered By: Imani Knight on 04-04-2025 75 U/L High <32 [facility] Nucleated red blood cell per centageOrdered By: ED PROVIDER on 04-04-2025 Nucleated RBC/100 WBC (Bld) [Ratio] 0.2 % 0-5 [facility] Platelet countOrdered By: ED PROVIDER on 04-04-2025 Platelets (Bld) [#/Vol] 186 10*3/uL 150-450 [facility] Potassium measurement (mass/ volume)Ordered By: Imani Knight on 04-04-2025 Potassium (Unsp spec) [Mass/Vol] 2.9 mmol/L Low 3.3-5.1 [facility] RBC Auto (Bld) [#/Vol]Ordere d By: ED PROVIDER on 04-04-2025 RBC (Bld) [#/Vol] 4.04 10*6/uL Low 4.2-5.4 [facility] Serum creatinine measurement (mass/volume)Ordered By: Imani Knight on 04-04-2025 Creatinine [Mass/Vol] 0.55 mg/dL Low 0.70-1.20 [facility] Serum globulin measurementOr dered By: Imani Knight on 04-04-2025 Globulin (S) [Mass/Vol] 3.3 g/dL 2.2-4.2 [facility] Serum glucose measurement (m ass/volume)Ordered By: Imani Knight on 04-04-2025 Glucose [Mass/Vol] 131 mg/dL High 70-99 [facility] Serum or plasma alanine wilkerson otransferase (ALT) measurementOrdered By: Imani Knight on 04-04-2025 ALT [Catalytic activity/Vol] 44 U/L High <35 [facility] Serum or plasma albumin alphonso urement (mass/volume)Ordered By: Imani Knight on 04-04-2025 Albumin [Mass/Vol] 4.1 g/dL 3.5-5.0 [facility] Serum or plasma alkaline trinity sphatase measurementOrdered By: Imani Knight on 04-04-2025 ALP [Catalytic activity/Vol] 91 U/L 35-104 [facility] Serum or plasma calcium alphonso urement (mass/volume)Ordered By: Imani Knight on 04-04-2025 Calcium [Mass/Vol] 8.4 mg/dL 7.6-11.0 [facility] Serum or plasma urea nitroge n measurement (mass/volume)Ordered By: Imani Knight on 04-04-2025 Urea nitrogen [Mass/Vol] 5 mg/dL 4-19 [facility] Sodium levelOrdered By: Radha Knight on 04-04-2025 Sodium [Moles/Vol] 139 mmol/L 133-145 [facility] Total proteinOrdered By: Gwen Knight on 04-04-2025 Protein [Mass/Vol] 7.3 g/dL 5.9-8.4 [facility] Troponin T.cardiac [Mass/vol ume] in Serum or Plasma by High sensitivity methodOrdered By: Imani Knight on 04-04-2025 Troponin T.cardiac High sensitivity method [Mass/Vol] < 6 ng/L <14 [facility] Troponin T.cardiac High sensitivity method [Mass/Vol] < 6 ng/L <14 [facility] White blood cell (WBC) count Ordered By: ED PROVIDER on 04-04-2025 WBC (Bld) [#/Vol] 8.8 10*3/uL 4.4-11.0 [facility] 12 Lead EKGon 11-12-2024 12 Lead EKG Normal [facility] Basic Metabolic Profile (BMP )on 11-12-2024 BUN/CRE 23.8 RATIO High 10-20 [facility] Comment on above: Order Comment: 1Y Performed By: #### L 501.5425, L300.8000, L500.2500, L700.6800, L100.0100, L501.5200 ####[facility] [address] [place], [address] CA,Total 8.1 mg/dL Low 8.5-10.1 [facility] Comment on above: Order Comment: 1Y Performed By: #### L 501.5425, L300.8000, L500.2500, L700.6800, L100.0100, L501.5200 ####[facility] [address] [place], [address] Chloride [Moles/Vol] 99 mmol/L Normal 98-107 [facility] Comment on above: Order Comment: 1Y Performed By: #### L 501.5425, L300.8000, L500.2500, L700.6800, L100.0100, L501.5200 ####[facility] [address] [place], [address] CO2 [Moles/Vol] 27.0 mmol/L Normal 21.0-32.0 [facility] Comment on above: Order Comment: 1Y Performed By: #### L 501.5425, L300.8000, L500.2500, L700.6800, L100.0100, L501.5200 ####[facility] [address] [place], [address] Creatinine [Mass/Vol] 0.59 mg/dL Normal 0.55-1.02 [facility] Comment on above: Order Comment: 1Y Result Comment: The validity of the calculated GFR GFRAA in patients over70 years has not been determined. Clinical correlation isessential. Performed By: #### L 501.5425, L300.8000, L500.2500, L700.6800, L100.0100, L501.5200 ####[facility] [address] [place], [address] ECRCL 112.29 ml/min Normal [facility] Comment on above: Order Comment: 1Y Performed By: #### L 501.5425, L300.8000, L500.2500, L700.6800, L100.0100, L501.5200 ####[facility] [address] [place], [address] EST GFR - AA 140 mL/min Normal >60 [facility] Comment on above: Order Comment: 1Y Result Comment: Afri can Brazilian GFR Calc Performed By: #### L 501.5425, L300.8000, L500.2500, L700.6800, L100.0100, L501.5200 ####[facility] [address] [place], [address] GAP 9 Normal 5-15 [facility] Comment on above: Order Comment: 1Y Performed By: #### L 501.5425, L300.8000, L500.2500, L700.6800, L100.0100, L501.5200 ####[facility] [address] [place], [address] GFR/1.73 sq M.predicted among non-blacks MDRD (S/P/Bld) [Vol rate/Area] 116 mL/min/{1.73_m2} Normal >60 [facility] Comment on above: Order Comment: 1Y Result Comment: Non- GFR Calc Performed By: #### L 501.5425, L300.8000, L500.2500, L700.6800, L100.0100, L501.5200 ####[facility] [address] [place], [address] Glucose [Mass/Vol] 131 mg/dL High 74-106 [facility] Comment on above: Order Comment: 1Y Result Comment: Fast ing Glucose result greater than or equal to 126 mg/dLsuggests DIABETES MELLITUS per A.D.A. criteria. Performed By: #### L 501.5425, L300.8000, L500.2500, L700.6800, L100.0100, L501.5200 ####[facility] [address] [place], [address] Potassium [Moles/Vol] 3.7 mmol/L Normal 3.5-5.1 [facility] Comment on above: Order Comment: 1Y Performed By: #### L 501.5425, L300.8000, L500.2500, L700.6800, L100.0100, L501.5200 ####[facility] [address] [place], [address] Sodium [Moles/Vol] 135 mmol/L Low 136-145 [facility] Comment on above: Order Comment: 1Y Performed By: #### L 501.5425, L300.8000, L500.2500, L700.6800, L100.0100, L501.5200 ####[facility] [address] [place], [address] Urea nitrogen [Mass/Vol] 14 mg/dL Normal 7-18 [facility] Comment on above: Order Comment: 1Y Performed By: #### L 501.5425, L300.8000, L500.2500, L700.6800, L100.0100, L501.5200 ####[facility] [address] [place], [address] CBC W/Diff, Automatedon 10-29-2023 Absolute Lymph 1.29 X10 3/uL Normal 0.83-4.51 [facility] Comment on above: Performed By: #### L 501.5425, L300.8000, L500.2500, L700.6800, L100.0100, L501.5200 ####[facility] [address] [place], [address] Absolute Neut 6.5 X10 3/uL Normal 2.0-7.7 [facility] Comment on above: Performed By: #### L 501.5425, L300.8000, L500.2500, L700.6800, L100.0100, L501.5200 ####[facility] [address] [place], [address] Basophils/100 WBC (Bld) 0.5 % Normal 0-[address] [facility] Comment on above: Performed By: #### L 501.5425, L300.8000, L500.2500, L700.6800, L100.0100, L501.5200 ####[facility] [address] [place], [address] Eosinophils/100 WBC (Bld) 1.2 % Normal 0-5 [facility] Comment on above: Performed By: #### L 501.5425, L300.8000, L500.2500, L700.6800, L100.0100, L501.5200 ####[facility] [address] [place], [address] Erythrocyte distribution width (RBC) [Ratio] 13.1 % Normal 11.6-14.6 [facility] Comment on above: Performed By: #### L 501.5425, L300.8000, L500.2500, L700.6800, L100.0100, L501.5200 ####[facility] [address] [place], [address] Hematocrit (Bld) [Volume fraction] 37.7 % Normal 37-47 [facility] Comment on above: Performed By: #### L 501.5425, L300.8000, L500.2500, L700.6800, L100.0100, L501.5200 ####[facility] [address] [place], [address] Hemoglobin (Bld) [Mass/Vol] 12.9 g/dL Normal 12.0-15.0 [facility] Comment on above: Performed By: #### L 501.5425, L300.8000, L500.2500, L700.6800, L100.0100, L501.5200 ####[facility] [address] [place], [address] IG% 0.200 Normal 0.0-0.9 [facility] Comment on above: Result Comment: IG% - Immature Granulocytes (promyelocytes, myelocytes andmetamyelocytes) > 1% indicates that a LEFT SHIFT is Present. Performed By: #### L 501.5425, L300.8000, L500.2500, L700.6800, L100.0100, L501.5200 ####[facility] [id number] [place], [address] Lymphocytes/100 WBC (Bld) 15.1 % Low 19-41 [facility] Comment on above: Performed By: #### L 501.5425, L300.8000, L500.2500, L700.6800, L100.0100, L501.5200 ####[facility] [id number] [place], [address] MCH (RBC) [Entitic mass] 33.7 pg High 27.0-32.0 [facility] Comment on above: Performed By: #### L 501.5425, L300.8000, L500.2500, L700.6800, L100.0100, L501.5200 ####[facility] [id number] [place], [address] MCHC (RBC) [Mass/Vol] 34.2 g/dL Normal 32-36 [facility] Comment on above: Performed By: #### L 501.5425, L300.8000, L500.2500, L700.6800, L100.0100, L501.5200 ####[facility] [address] [place], [address] MCV (RBC) [Entitic vol] 98.4 fL Normal 81-99 [facility] Comment on above: Performed By: #### L 501.5425, L300.8000, L500.2500, L700.6800, L100.0100, L501.5200 ####[facility] [address] [place], [address] Monocytes/100 WBC (Bld) 6.9 % Normal 0-10 [facility] Comment on above: Performed By: #### L 501.5425, L300.8000, L500.2500, L700.6800, L100.0100, L501.5200 ####[facility] [address] [place], [address] Neutrophils/100 WBC (Bld) 76.1 % High 47-70 [facility] Comment on above: Performed By: #### L 501.5425, L300.8000, L500.2500, L700.6800, L100.0100, L501.5200 ####[facility] [address] [place], [address] Nucleated RBC (Bld) [#/Vol] 0 10*3/uL Normal 0-5 [facility] Comment on above: Performed By: #### L 501.5425, L300.8000, L500.2500, L700.6800, L100.0100, L501.5200 ####[facility] [address] [place], [address] Platelet mean volume (Bld) [Entitic vol] 9.2 fL Normal 6.2-12.0 [facility] Comment on above: Performed By: #### L 501.5425, L300.8000, L500.2500, L700.6800, L100.0100, L501.5200 ####[facility] [address] [place], [address] Platelets (Bld) [#/Vol] 211 10*3/uL Normal 150-450 [facility] Comment on above: Performed By: #### L 501.5425, L300.8000, L500.2500, L700.6800, L100.0100, L501.5200 ####[facility] [address] [place], [address] RBC (Bld) [#/Vol] 3.83 10*6/uL Low 4.2-5.4 [facility] Comment on above: Performed By: #### L 501.5425, L300.8000, L500.2500, L700.6800, L100.0100, L501.5200 ####[facility] [address] [place], [address] RDW SD 46.6 fl High 35.1-43.9 [facility] Comment on above: Performed By: #### L 501.5425, L300.8000, L500.2500, L700.6800, L100.0100, L501.5200 ####[facility] [address] [place], [address] WBC (Bld) [#/Vol] 8.6 10*3/uL Normal 4.4-11.0 [facility] Comment on above: Performed By: #### L 501.5425, L300.8000, L500.2500, L700.6800, L100.0100, L501.5200 ####[facility] [address] [place], [address] CTA Chest W/WO Contraston CTA Chest W/WO Contrast Normal W [facility] Chest 1 View (Portable)on Chest 1 View (Portable) Normal W [facility] D-Dimer Quantitative (DVT/PE )on 11-12-2024 D-DIMER QUANT 0.74 FEU/ug/m Invalid Interpretation Code 0.27-0.49 [facility] Comment on above: Order Comment: CRITI FLORECITA VALUE CALLED TO pnmzdvuptyaeqkz74/15/24 1114 Priti Queen.RESULTS READ BACK BY same. Result Comment: D-Di clive ELEVATED (>0.49): Additional studies and clinicalassessments are indicated to conclude diagnosis of:Deep Vein Thrombosis (DVT) or Pulmonary Embolism (PE) Performed By: #### L 501.5425, L300.8000, L500.2500, L700.6800, L100.0100, L501.5200 ####[facility] [address] [place], [address] Emergency Department Summary on 11-12-2024 Emergency Department Summary Normal [facility] L501.4020on 11-12-2024 TROPONIN-I HS 6 pg/mL Normal 3.0-54.0 [facility] Comment on above: Result Comment: Plea se Note: New Test Units and Gender Specific Reference Ranges. For more information see Policy Stat Procedure [place] High Sensitivity Troponin (TNIH) and attachments. Performed By: #### L 501.4020 ####[facility] [address] [place], [address] L501.5425on 11-12-2024 TROPONIN-I HS 6 pg/mL Normal 3.0-54.0 [facility] Comment on above: Order Comment: 1Y Result Comment: Lucie schulzt Note: New Test Units and Gender Specific Reference Ranges. For more information see Policy Stat Procedure [place] High Sensitivity Troponin (TNIH) and attachments. Performed By: #### L 501.5425, L300.8000, L500.2500, L700.6800, L100.0100, L501.5200 ####[facility] [address] [place], [address] Magnesiumon 11-12-2024 Magnesium [Mass/Vol] 1.1 mg/dL Low 1.6-2.6 [facility] Comment on above: Order Comment: 1Y Performed By: #### L 501.5425, L300.8000, L500.2500, L700.6800, L100.0100, L501.5200 ####[facility] [address] [place], [address] ,Serum,hCG Quali.on 11-12-2024 HCG, SERUM QUAL Negative Normal [facility] Comment on above: Performed By: #### L 501.5425, L300.8000, L500.2500, L700.6800, L100.0100, L501.5200 ####[facility] [address] [place], [address] Orthopedic Visit Reporton Orthopedic Visit Report Normal [facility] Spine Lumbar (Routine)on Spine Lumbar (Routine) Normal [facility] L/S Spine Min 4 Viewson 08-01 L/S Spine Min 4 Views Normal [facility] Orthopedic Visit Reporton Orthopedic Visit Report Normal [facility] Cardiology Visit Reporton Cardiology Visit Report Normal [facility] Comprehensive Metabolic Prof ilon 08-22-2024 Albumin [Mass/Vol] 3.6 g/dL Normal 3.2-5.0 [facility] Comment on above: Order Comment: Comme nts: okay to do nonfasting Performed By: #### L 500.4100, L500.4050 ####[facility] [address] [place], [address] Albumin/Globulin [Mass ratio] 0.9 {ratio} Normal 0.9-2.4 [facility] Comment on above: Order Comment: Comme nts: okay to do nonfasting Performed By: #### L 500.4100, L500.4050 ####[facility] [address] [place], [address] ALK P 91 U/L Normal 45-117 [facility] Comment on above: Order Comment: Comme nts: okay to do nonfasting Performed By: #### L 500.4100, L500.4050 ####[facility] [address] [place], [address] ALT [Catalytic activity/Vol] 39 U/L Normal 13-56 [facility] Comment on above: Order Comment: Comme nts: okay to do nonfasting Performed By: #### L 500.4100, L500.4050 ####[facility] [address] [place], [address] AST [Catalytic activity/Vol] 41 U/L High 15-37 [facility] Comment on above: Order Comment: Comme nts: okay to do nonfasting Performed By: #### L 500.4100, L500.4050 ####[facility] [address] [place], [address] Bilirubin [Mass/Vol] 0.50 mg/dL Normal 0.20-1.00 [facility] Comment on above: Order Comment: Comme nts: okay to do nonfasting Result Comment: For patients on eltrombopag therapy, use of Dimension [place] TBIL is not recommended. Performed By: #### L 500.4100, L500.4050 ####[facility] [address] [place], [address] BUN/CRE 11.9 RATIO Normal 10-20 [facility] Comment on above: Order Comment: Comme nts: okay to do nonfasting Performed By: #### L 500.4100, L500.4050 ####[facility] [address] [place], [address] CA,Total 9.6 mg/dL Normal 8.5-10.1 [facility] Comment on above: Order Comment: Comme nts: okay to do nonfasting Performed By: #### L 500.4100, L500.4050 ####[facility] [address] [place], [address] Chloride [Moles/Vol] 104 mmol/L Normal 98-107 [facility] Comment on above: Order Comment: Comme nts: okay to do nonfasting Performed By: #### L 500.4100, L500.4050 ####[facility] [address] [place], [address] CO2 [Moles/Vol] 27.0 mmol/L Normal 21.0-32.0 [facility] Comment on above: Order Comment: Comme nts: okay to do nonfasting Performed By: #### L 500.4100, L500.4050 ####[facility] [address] [place], [address] Creatinine [Mass/Vol] 0.67 mg/dL Normal 0.55-1.02 [facility] Comment on above: Order Comment: Comme nts: okay to do nonfasting Result Comment: The validity of the calculated GFR GFRAA in patients over70 years has not been determined. Clinical correlation isessential. Performed By: #### L 500.4100, L500.4050 ####[facility] [address] [place], [address] EST GFR - AA 121 mL/min Normal >60 [facility] Comment on above: Order Comment: Comme nts: okay to do nonfasting Result Comment: Afri can Brazilian GFR Calc Performed By: #### L 500.4100, L500.4050 ####[facility] [address] [place], [address] GAP 6 Normal 5-15 [facility] Comment on above: Order Comment: Comme nts: okay to do nonfasting Performed By: #### L 500.4100, L500.4050 ####[facility] [address] [place], [address] GFR/1.73 sq M.predicted among non-blacks MDRD (S/P/Bld) [Vol rate/Area] 100 mL/min/{1.73_m2} Normal >60 [facility] Comment on above: Order Comment: Comme nts: okay to do nonfasting Result Comment: Non- GFR Calc Performed By: #### L 500.4100, L500.4050 ####[facility] [address] [place], [address] Globulin (S) [Mass/Vol] 4.0 g/dL Normal 2.2-4.2 [facility] Comment on above: Order Comment: Comme nts: okay to do nonfasting Performed By: #### L 500.4100, L500.4050 ####[facility] [address] [place], [address] Glucose [Mass/Vol] 130 mg/dL High 74-106 [facility] Comment on above: Order Comment: Comme nts: okay to do nonfasting Result Comment: Fast ing Glucose result greater than or equal to 126 mg/dLsuggests DIABETES MELLITUS per A.D.A. criteria. Performed By: #### L 500.4100, L500.4050 ####[facility] [address] [place], [address] Potassium [Moles/Vol] 4.2 mmol/L Normal 3.5-5.1 [facility] Comment on above: Order Comment: Comme nts: okay to do nonfasting Performed By: #### L 500.4100, L500.4050 ####[facility] [address] [place], [address] Sodium [Moles/Vol] 137 mmol/L Normal 136-145 [facility] Comment on above: Order Comment: Comme nts: okay to do nonfasting Performed By: #### L 500.4100, L500.4050 ####[facility] [address] [place], [address] T PROT 7.6 g/dL Normal 6.4-8.2 [facility] Comment on above: Order Comment: Comme nts: okay to do nonfasting Performed By: #### L 500.4100, L500.4050 ####[facility] [address] [place], [address] Urea nitrogen [Mass/Vol] 8 mg/dL Normal 7-18 [facility] Comment on above: Order Comment: Comme nts: okay to do nonfasting Performed By: #### L 500.4100, L500.4050 ####[facility] [address] [place], [address] Lipid Profileon 08-22-2024 Cholesterol [Mass/Vol] 124 mg/dL Normal 200 [facility] Comment on above: Order Comment: Comme nts: okay to do nonfasting Result Comment: <200 mg/dL Desirable 200-240 mg/dL Borderline >240 mg/dL High Risk Performed By: #### L 500.4100, L500.4050 ####[facility] [address] [place], [address] Cholesterol in HDL [Mass/Vol] 70 mg/dL Normal [facility] Comment on above: Order Comment: Comme nts: okay to do nonfasting Result Comment: The drugs N-Acetylcysteine and Metamizole may falselydepress this assay. Reference Range HDL <40 mg/dL Low HDL Cholesterol HDL >or= 60 mg/dL High HDL Cholesterol Performed By: #### L 500.4100, L500.4050 ####[facility] [address] [place], [address] Cholesterol in LDL [Mass/Vol] 13 mg/dL Normal 0-130 [facility] Comment on above: Order Comment: Comme nts: okay to do nonfasting Performed By: #### L 500.4100, L500.4050 ####[facility] [address] [place], [address] Cholesterol in VLDL [Mass/Vol] 41 mg/dL High 5-40 [facility] Comment on above: Order Comment: Comme nts: okay to do nonfasting Performed By: #### L 500.4100, L500.4050 ####[facility] [address] [place], [address] Triglyceride [Mass/Vol] 204 mg/dL High [facility] Comment on above: Order Comment: Comme nts: okay to do nonfasting Result Comment: The drugs N-Acetylcysteine and Metamizole may falselydepress this assay.Serum Triglycerides Reference Interval Normal <150 mg/dL Borderline high 150 - 199 mg/dL High 200 - 499 mg/dL Very High > or = 500 mg/dL Performed By: #### L 500.4100, L500.4050 ####[facility] [address] [place], [address] Inital Evaluation (1) - PTon 08-16-2024 Inital Evaluation (1) - PT Normal [facility] CNOVon 04-22-2024 CNOV Office Visit ([facility] ) JOSEPH RINCON ([id number]) 1975 F NFR Date Time Provider Department 04/22/24 1:30 PM ARETHA SCHOFIELD [facility] During your visit today, we recorded the following information about you: Temperature Pulse Respiration Blood pressure 97.4 degrees 115/minute 20/minute 120/84 Weight 75.8 kg Aretha Schofield, [employer]IOR [employer]ELOPER.[employer] 04/22/2024 2:02 PM Signed Subjective Sinus Problem [...] since qu (more content not included)... Normal [facility] Basophil percentageOrdered B y: Milana Garcia on 03-21-2024 Bilirubin [Mass/Vol] 0.60 mg/dL 0.20-1.00 [facility] Comment on above: For patients on eltr ombopag therapy, use of Dimension [place] TBIL is not recommended. Chloride [Moles/Vol] 105 mmol/L 98-107 [facility] Glucose [Mass/Vol] 121 mg/dL 74-106 [facility] Comment on above: Fasting Glucose resu lt from 100 to 125 mg/dL suggests IMPAIRED HOMEOSTASIS per A.D.A. criteria. Potassium [Moles/Vol] 4.0 mmol/L 3.5-5.1 [facility] Protein [Mass/Vol] 7.6 g/dL 6.4-8.2 [facility] Sodium [Moles/Vol] 136 mmol/L 136-145 [facility] Laboratory - Chemistry and C hemistry - challengeOrdered By: Milana Garcia on 03-21-2024 Albumin/Globulin [Mass ratio] 0.9 {ratio} 0.9-2.4 [facility] ALP [Catalytic activity/Vol] 67 U/L 45-117 [facility] ALT [Catalytic activity/Vol] 27 U/L 13-56 [facility] CO2 [Moles/Vol] 24.0 mmol/L 21.0-32.0 [facility] Globulin (S) [Mass/Vol] 4.0 g/dL 2.2-4.[address] [facility] Magnesium [Mass/Vol] 1.7 mg/dL 1.6-2.6 [facility] Sodium (U) [Moles/Vol] 104 mmol/L Not Establ. [facility] Urea nitrogen/Creatinine [Mass ratio] 21.6 mg/mg 10-20 [facility] No Panel InformationOrdered By: Milana Garcia on 03-21-2024 Estimated GFR (MDRD) Amer 108 mL/min >60 [facility] Comment on above: GFR Calc Estimated GFR (MDRD) Non-Af Amer 89 mL/min >60 [facility] Comment on above: Non- GFR Calc Serum or plasma calcium alphonso urement (mass/volume)Ordered By: Milana Garcia on 03-21-2024 Calcium [Mass/Vol] 8.8 mg/dL 8.5-10.1 [facility] Serum or plasma creatinine m easurement (mass/volume)Ordered By: Milana Garcia on 03-21-2024 Creatinine [Mass/Vol] 0.74 mg/dL 0.55-1.02 [facility] Comment on above: The validity of the calculated GFR & GFRAA in patients over 70 years has not been determined. Clinical correlation is essential. Serum or plasma thyroid stim ulating hormone (TSH) measurement (units/volume)Ordered By: Milana Garcia on 03-21-2024 TSH Qn 1.06 uIU/mL 0.358-3.74 [facility] Serum or plasma urea nitroge n measurement (mass/volume)Ordered By: Milana Garcia on 03-21-2024 Urea nitrogen [Mass/Vol] 16 mg/dL 7-18 [facility] Thin prep Papanicolaou smear with manual screeningOrdered By: Milana Garcia on 03-21-2024 Thin prep Papanicolaou smear with manual screening 3.6 g/dL 3.2-5.0 [facility] Thin prep Papanicolaou smear with manual screening 22 U/L 15-37 [facility] Thin prep Papanicolaou smear with manual screening 7 5-15 [facility] Thin prep Papanicolaou smear with manual screening 286 mOsm/KG 275-295 [facility] Urine osmolality measurement Ordered By: Milana Garcia on 03-21-2024 Osmolality (U) [Osmolality] 535 mOsm/KG >50 [facility] Comment on above: Normal Urine Referen ce Ranges Random: 50 - 1200 mOsm/kg H20 depending on fluid intake Random: >850 mOsm/kg after 12 hour fluid restriction 24 hour: ~300 - 900 mOsm/kg H2O Absolute lymphocyte countOrd ered By: Caprice Jerry on 01-24-2024 Lymphocytes Auto (Unsp spec) [#/Vol] 3.36 10*3/uL 0.83-4.51 [facility] Automated lymphocyte count a s percentage of total leukocytesOrdered By: Caprice Jerry on 01-24-2024 Lymphocytes/100 WBC Auto (Unsp spec) 33.3 % 19-41 [facility] Basophil percentageOrdered B y: Caprice Jerry on 01-24-2024 Basophils/100 WBC (Bld) 0.8 % 0-[address] [facility] Chloride [Moles/Vol] 104 mmol/L 98-107 [facility] Eosinophils/100 WBC (Bld) 1.6 % 0-5 [facility] Glucose [Mass/Vol] 110 mg/dL 74-106 [facility] Comment on above: Fasting Glucose resu lt from 100 to 125 mg/dL suggests IMPAIRED HOMEOSTASIS per A.D.A. criteria. Hemoglobin (Bld) [Mass/Vol] 12.5 g/dL 12.0-15.0 [facility] Monocytes/100 WBC (Bld) 9.1 % 0-[address] [facility] Neutrophils (Bld) [#/Vol] 5.5 10*3/uL 2.0-7.7 [facility] Neutrophils/100 WBC (Bld) 54.8 % 47-70 [facility] Potassium [Moles/Vol] 3.9 mmol/L 3.5-5.1 [facility] Sodium [Moles/Vol] 138 mmol/L 136-145 [facility] WBC (Bld) [#/Vol] 10.1 10*3/uL 4.4-11.0 [facility] Basophil percentageOrdered B y: Ainsley Bean on 01-24-2024 Bilirubin [Mass/Vol] 0.30 mg/dL 0.20-1.00 [facility] Comment on above: For patients on eltr ombopag therapy, use of Dimension [place] TBIL is not recommended. Protein [Mass/Vol] 7.1 g/dL 6.4-8.2 [facility] Determination of erythrocyte mean corpuscular volume (MCV)Ordered By: Caprice Jerry on 01-24-2024 MCV (RBC) [Entitic vol] 95.9 fL 81-[address] [facility] Direct bilirubinOrdered By: Ainsley Bean on 01-24-2024 Bilirubin.direct [Mass/Vol] 0.12 mg/dL 0.00-0.30 [facility] Erythrocyte distribution wid th ratioOrdered By: Caprice Jerry on 01-24-2024 Erythrocyte distribution width (RBC) [Ratio] 11.9 % 11.6-14.6 [facility] Erythrocyte distribution wid th standard deviationOrdered By: Caprice Jerry on 01-24-2024 Erythrocyte distribution width (RBC) [Entitic vol] 41.5 fL 35.1-43.9 [facility] Hematocrit Auto (Bld) [Volum e fraction]Ordered By: Capirce Jerry on 01-24-2024 Hematocrit (Bld) [Volume fraction] 37.4 % 37-47 [facility] Immature granulocytes/100 WB C Auto (Bld)Ordered By: Caprice Jerry on 01-24-2024 Immature granulocytes/100 WBC (Bld) 0.400 % 0.0-0.9 [facility] Comment on above: IG% - Immature Granu locytes (promyelocytes, myelocytes and metamyelocytes) > 1% indicates that a LEFT SHIFT is Present. Laboratory - Chemistry and C hemistry - challengeOrdered By: Ainsley Bean on 01-24-2024 ALP [Catalytic activity/Vol] 69 U/L 45-117 [facility] ALT [Catalytic activity/Vol] 23 U/L 13-56 [facility] Globulin (S) [Mass/Vol] 3.7 g/dL 2.2-4.[address] [facility] Lipase [Catalytic activity/Vol] 88 U/L 13-75 [facility] Comment on above: Please note:LIPASE r evised reference range effective 23. New Lipase methodology. Expected to produce lower values than the previous assay method. NEW Reference Range: 13 - 75 U/L Laboratory - Chemistry and C hemistry - challengeOrdered By: Caprice Jerry on 01-24-2024 CO2 [Moles/Vol] 29.0 mmol/L 21.0-32.0 [facility] Urea nitrogen/Creatinine [Mass ratio] 21.7 mg/mg 10-20 [facility] Laboratory - Hematology and Cell countsOrdered By: Caprice Jerry on 01-24-2024 MCH (RBC) [Entitic mass] 32.1 pg 27.0-32.0 [facility] MCHC (RBC) [Mass/Vol] 33.4 g/dL 32-36 [facility] Nucleated RBC/100 WBC (Bld) [Ratio] 0 % 0-5 [facility] Platelet mean volume (Bld) [Entitic vol] 9.6 fL 6.2-12.0 [facility] Platelets (Bld) [#/Vol] 264 10*3/uL 150-450 [facility] No Panel InformationOrdered By: Ainsley Bean on 01-24-2024 Troponin I High Sensitivity 4 pg/mL 3.0-54.0 [facility] Comment on above: Please Note: New Miri t Units and Gender Specific Reference Ranges. For more information see Policy Stat Procedure [place] High Sensitivity Troponin (TNIH) and attachments. No Panel InformationOrdered By: Caprice Jerry on 01-24-2024 Estimated GFR (MDRD) Amer 108 mL/min >60 [facility] Comment on above: GFR Calc Estimated GFR (MDRD) Non-Af Amer 90 mL/min >60 [facility] Comment on above: Non- GFR Calc RBC Auto (Bld) [#/Vol]Ordere d By: Caprice Jerry on 01-24-2024 RBC (Bld) [#/Vol] 3.90 10*6/uL 4.2-5.4 [facility] Serum or plasma calcium alphonso urement (mass/volume)Ordered By: Caprice Jerry on 01-24-2024 Calcium [Mass/Vol] 10.1 mg/dL 8.5-10.1 [facility] Serum or plasma creatinine m easurement (mass/volume)Ordered By: Caprice Jerry on 01-24-2024 Creatinine [Mass/Vol] 0.74 mg/dL 0.55-1.02 [facility] Comment on above: The validity of the calculated GFR & GFRAA in patients over 70 years has not been determined. Clinical correlation is essential. Serum or plasma urea nitroge n measurement (mass/volume)Ordered By: Caprice Jerry on 01-24-2024 Urea nitrogen [Mass/Vol] 16 mg/dL 7-18 [facility] Thin prep Papanicolaou smear with manual screeningOrdered By: Ainsley Bean on 01-24-2024 Thin prep Papanicolaou smear with manual screening 3.4 g/dL 3.2-5.0 [facility] Thin prep Papanicolaou smear with manual screening 25 U/L 15-37 [facility] Comment on above: Slight Hemolysis, Re sult may be falsely increased. Thin prep Papanicolaou smear with manual screeningOrdered By: Caprice Jerry on 01-24-2024 Thin prep Papanicolaou smear with manual screening 5 5-15 [facility] Absolute lymphocyte countOrd ered By: Caprice Jerry on 10-10-2023 Lymphocytes Auto (Unsp spec) [#/Vol] 0.98 10*3/uL 0.83-4.51 [facility] Basophil percentageOrdered B y: Caprice Jerry on 10-10-2023 Basophils/100 WBC (Bld) 0.3 % 0-[address] [facility] Bilirubin [Mass/Vol] 1.00 mg/dL 0.20-1.00 [facility] Comment on above: For patients on eltr ombopag therapy, use of Dimension [place] TBIL is not recommended. Chloride [Moles/Vol] 103 mmol/L 98-107 [facility] Eosinophils/100 WBC (Bld) 0.2 % 0-5 [facility] Glucose [Mass/Vol] 175 mg/dL 74-106 [facility] Comment on above: Fasting Glucose resu lt greater than or equal to 126 mg/dL suggests DIABETES MELLITUS per A.D.A. criteria. Neutrophils (Bld) [#/Vol] 7.6 10*3/uL 2.0-7.7 [facility] Neutrophils/100 WBC (Bld) 81.6 % 47-70 [facility] Potassium [Moles/Vol] 3.9 mmol/L 3.5-5.1 [facility] Protein [Mass/Vol] 7.3 g/dL 6.4-8.2 [facility] Sodium [Moles/Vol] 133 mmol/L 136-145 [facility] WBC (Bld) [#/Vol] 9.3 10*3/uL 4.4-11.0 [facility] Blood erythrocytes count (nu mber/volume)Ordered By: Caprice Jerry on 10-10-2023 RBC (Bld) [#/Vol] 4.14 10*6/uL 4.2-5.4 [facility] Blood hemoglobin measurement (mass/volume)Ordered By: Caprice Jerry on 10-10-2023 Hemoglobin (Bld) [Mass/Vol] 13.5 g/dL 12.0-15.0 [facility] Blood lymphocytes/100 leukoc ytesOrdered By: Caprice Jerry on 10-10-2023 Lymphocytes/100 WBC (Bld) 10.6 % 19-41 [facility] Blood monocytes/100 leukocyt esOrdered By: Caprice Jerry on 10-10-2023 Monocytes/100 WBC (Bld) 7.0 % 0-[address] [facility] Blood platelet mean volumeOr dered By: Caprice Jerry on 10-10-2023 Platelet mean volume (Bld) [Entitic vol] 9.7 fL 6.2-12.0 [facility] Determination of erythrocyte mean corpuscular volume (MCV)Ordered By: Caprice Jerry on 10-10-2023 MCV (RBC) [Entitic vol] 98.3 fL 81-[address] [facility] Direct bilirubinOrdered By: Caprice Jerry on 10-10-2023 Bilirubin.direct [Mass/Vol] 0.30 mg/dL 0.00-0.30 [facility] Hematocrit Auto (Bld) [Volum e fraction]Ordered By: Caprice Jerry on 10-10-2023 Hematocrit (Bld) [Volume fraction] 40.7 % 37-47 [facility] Influenza virus A and B and SARS-CoV-2 (COVID-19) Ag panel - Upper respiratory specimOrdered By: Caprice Jerry on 10-10-2023 SARS-CoV-2 (COVID-19) RNA ALLEY+probe Ql (Resp) [facility] Laboratory - Chemistry and C hemistry - challengeOrdered By: Caprice Jerry on 10-10-2023 ALP [Catalytic activity/Vol] 97 U/L 45-117 [facility] ALT [Catalytic activity/Vol] 54 U/L 13-56 [facility] CO2 [Moles/Vol] 22.0 mmol/L 21.0-32.0 [facility] Globulin (S) [Mass/Vol] 3.8 g/dL 2.2-4.[address] [facility] Lipase [Catalytic activity/Vol] 45 U/L 13-75 [facility] Comment on above: Please note:LIPASE r evised reference range effective 23. New Lipase methodology. Expected to produce lower values than the previous assay method. NEW Reference Range: 13 - 75 U/L Urea nitrogen/Creatinine [Mass ratio] 8.9 mg/mg 10-20 [facility] Laboratory - Hematology and Cell countsOrdered By: Caprice Jerry on 10-10-2023 Erythrocyte distribution width (RBC) [Entitic vol] 44.4 fL 35.1-43.9 [facility] Erythrocyte distribution width (RBC) [Ratio] 12.4 % 11.6-14.6 [facility] Immature granulocytes/100 WBC (Bld) 0.300 % 0.0-0.9 [facility] Comment on above: IG% - Immature Granu locytes (promyelocytes, myelocytes and metamyelocytes) > 1% indicates that a LEFT SHIFT is Present. MCH (RBC) [Entitic mass] 32.6 pg 27.0-32.0 [facility] Nucleated RBC/100 WBC (Bld) [Ratio] 0 % 0-5 [facility] Auto (RBC) [Mass/Vol]Or dered By: Caprice Jerry on 10-10-2023 MCHC (RBC) [Mass/Vol] 33.2 g/dL 32-36 [facility] No Panel InformationOrdered By: Caprice Jerry on 10-10-2023 D-Dimer Quantitative (PE/DVT) 0.45 FEU/ug/m 0.27-0.49 [facility] Comment on above: NORMAL D-Dimer level (<0.50) indicates no DVT or PE. Estimated Creatinine Clearance Calc 31.78 ml/min [facility] Estimated GFR (MDRD) Amer 36 mL/min >60 [facility] Comment on above: GFR Calc Estimated GFR (MDRD) Non-Af Amer 30 mL/min >60 [facility] Comment on above: Non- GFR Calc Troponin I High Sensitivity 12 pg/mL 3.0-54.0 [facility] Comment on above: Please Note: New Miri t Units and Gender Specific Reference Ranges. For more information see Policy Stat Procedure [place] High Sensitivity Troponin (TNIH) and attachments. Platelets bldOrdered By: Leona Jerry on 10-10-2023 Platelets (Bld) [#/Vol] 255 10*3/uL 150-450 [facility] Serum or plasma albumin alphonso urement (mass/volume)Ordered By: Caprice Jerry on 10-10-2023 Albumin [Mass/Vol] 3.5 g/dL 3.2-5.0 [facility] Serum or plasma calcium alphonso urement (mass/volume)Ordered By: Caprice Jerry on 10-10-2023 Calcium [Mass/Vol] 8.1 mg/dL 8.5-10.1 [facility] Serum or plasma creatinine m easurement (mass/volume)Ordered By: Caprice Jerry on 10-10-2023 Creatinine [Mass/Vol] 1.91 mg/dL 0.55-1.02 [facility] Comment on above: The validity of the calculated GFR & GFRAA in patients over 70 years has not been determined. Clinical correlation is essential. Serum or plasma urea nitroge n measurement (mass/volume)Ordered By: Caprice Jerry on 10-10-2023 Urea nitrogen [Mass/Vol] 17 mg/dL 7-18 [facility] Thin prep Papanicolaou smear with manual screeningOrdered By: Caprice Jerry on 10-10-2023 Thin prep Papanicolaou smear with manual screening 68 U/L 15-37 [facility] Thin prep Papanicolaou smear with manual screening 8 5-15 [facility] No Panel Informationon 09-15 POC SARS CoV-2 Antigen Negative [facility] Basophil percentageOrdered B y: Jim Manriquez on 08-25-2023 Bilirubin [Mass/Vol] 0.20 mg/dL 0.20-1.00 [facility] Comment on above: For patients on eltr ombopag therapy, use of Dimension [place] TBIL is not recommended. Cholesterol [Mass/Vol] 224 mg/dL <200 [facility] Comment on above: <200 mg/dL Desirable 200-240 mg/dL Borderline >240 mg/dL High Risk Protein [Mass/Vol] 7.2 g/dL 6.4-8.2 [facility] Triglyceride [Mass/Vol] 405 mg/dL <[address] [facility] Comment on above: The drugs N-Acetylcy [...] on 08-25-2023 Bilirubin.direct [Mass/Vol] 0.10 mg/dL 0.00-0.30 [facility] Laboratory - Chemistry and C hemistry - challengeOrdered By: Jim Manriquez on 08-25-2023 ALP [Catalytic activity/Vol] 97 U/L 45-117 [facility] ALT [Catalytic activity/Vol] 88 U/L 13-56 [facility] Globulin (S) [Mass/Vol] 3.7 g/dL 2.2-4.[address] [facility] Lipase [Catalytic activity/Vol] 53 U/L 13-75 [facility] Comment on above: Please note:LIPASE r evised reference range effective 23. New Lipase methodology. Expected to produce lower values than the previous assay method. NEW Reference Range: 13 - 75 U/L Serum or plasma albumin alphonso urement (mass/volume)Ordered By: Jim Manriquez on 08-25-2023 Albumin [Mass/Vol] 3.5 g/dL 3.2-5.0 [facility] Serum or plasma cholesterol in HDL measurement (mass/volume)Ordered By: Jim Manriquez on 08-25-2023 Cholesterol in HDL [Mass/Vol] 61 mg/dL >40 [facility] Comment on above: The drugs N-Acetylcy steine and Metamizole may falsely depress this assay. Reference Range HDL <40 mg/dL Low HDL Cholesterol HDL >or= 60 mg/dL High HDL Cholesterol Serum or plasma cholesterol in VLDL measurement (mass/volume)Ordered By: Jim Manriquez on 08-25-2023 Cholesterol in VLDL [Mass/Vol] [facility] Comment on above: Test not performed Serum or plasma low density lipoprotein (LDL) cholesterol measurement (mass/volume)Ordered By: Jim Manriquez on 08-25-2023 Cholesterol in LDL [Mass/Vol] [facility] Comment on above: Test not performed Thin prep Papanicolaou smear with manual screeningOrdered By: Jim Manriquez on 08-25-2023 Thin prep Papanicolaou smear with manual screening 43 U/L 15-37 [facility] Absolute lymphocyte countOrd ered By: Jennifer Davila on 08-23-2023 Lymphocytes Auto (Unsp spec) [#/Vol] 2.29 10*3/uL 0.83-4.51 [facility] Basophil percentageOrdered B y: Jennifer Davila on 08-23-2023 Basophil percentage 0 SEEN /hpf 0-5 [facility] Basophils/100 WBC (Bld) 0.5 % 0-[address] [facility] Bilirubin [Mass/Vol] 0.30 mg/dL 0.20-1.00 [facility] Comment on above: For patients on eltr ombopag therapy, use of Dimension [place] TBIL is not recommended. Chloride [Moles/Vol] 103 mmol/L 98-107 [facility] Eosinophils/100 WBC (Bld) 1.6 % 0-5 [facility] Glucose [Mass/Vol] 205 mg/dL 74-106 [facility] Comment on above: Glucose result great er than or equal to 200 mg/dLsuggests DIABETES MELLITUS per A.D.A. criteria. Neutrophils (Bld) [#/Vol] 7.5 10*3/uL 2.0-7.7 [facility] Neutrophils/100 WBC (Bld) 69.4 % 47-70 [facility] Potassium [Moles/Vol] 4.3 mmol/L 3.5-5.1 [facility] Protein [Mass/Vol] 7.8 g/dL 6.4-8.2 [facility] Sodium [Moles/Vol] 135 mmol/L 136-145 [facility] WBC (Bld) [#/Vol] 10.8 10*3/uL 4.4-11.0 [facility] Bilirubin Test strip Ql (U)O rdered By: Jennifer Davila on 08-23-2023 Bilirubin Ql (U) Negative Negative [facility] Blood erythrocytes count (nu mber/volume)Ordered By: Jennifer Davila on 08-23-2023 RBC (Bld) [#/Vol] 4.30 10*6/uL 4.2-5.4 [facility] Blood hemoglobin measurement (mass/volume)Ordered By: Jennifer Davila on 08-23-2023 Hemoglobin (Bld) [Mass/Vol] 14.0 g/dL 12.0-15.0 [facility] Blood lymphocytes/100 leukoc ytesOrdered By: Jennifer Davila on 08-23-2023 Lymphocytes/100 WBC (Bld) 21.3 % 19-41 [facility] Blood monocytes/100 leukocyt esOrdered By: Jennifer Davila on 08-23-2023 Monocytes/100 WBC (Bld) 6.7 % 0-[address] [facility] Blood platelet mean volumeOr dered By: Jennifer Davila on 08-23-2023 Platelet mean volume (Bld) [Entitic vol] 9.6 fL 6.2-12.0 [facility] Determination of erythrocyte mean corpuscular volume (MCV)Ordered By: Jennifer Davila on 08-23-2023 MCV (RBC) [Entitic vol] 97.9 fL 81-[address] [facility] Hematocrit Auto (Bld) [Volum e fraction]Ordered By: Jennifer Davila on 08-23-2023 Hematocrit (Bld) [Volume fraction] 42.1 % 37-47 [facility] Ketones Test strip Ql (U)Ord ered By: Jennifer Davila on 08-23-2023 Ketones Ql (U) Negative Negative [facility] Laboratory - Chemistry and C hemistry - challengeOrdered By: Jennifer Davila on 08-23-2023 ALP [Catalytic activity/Vol] 69 U/L 45-117 [facility] ALT [Catalytic activity/Vol] 26 U/L 13-56 [facility] CO2 [Moles/Vol] 24.0 mmol/L 21.0-32.0 [facility] Globulin (S) [Mass/Vol] 4.2 g/dL 2.2-4.[address] [facility] Lipase [Catalytic activity/Vol] 41 U/L 13-75 [facility] Comment on above: Please note:LIPASE r evised reference range effective 23. New Lipase methodology. Expected to produce lower values than the previous assay method. NEW Reference Range: 13 - 75 U/L Urea nitrogen/Creatinine [Mass ratio] 9.5 mg/mg 10-20 [facility] Laboratory - Hematology and Cell countsOrdered By: Jennifer Davila on 08-23-2023 Erythrocyte distribution width (RBC) [Entitic vol] 45.9 fL 35.1-43.9 [facility] Erythrocyte distribution width (RBC) [Ratio] 12.8 % 11.6-14.6 [facility] Immature granulocytes/100 WBC (Bld) 0.500 % 0.0-0.9 [facility] Comment on above: IG% - Immature Granu locytes (promyelocytes, myelocytes and metamyelocytes) > 1% indicates that a LEFT SHIFT is Present. MCH (RBC) [Entitic mass] 32.6 pg 27.0-32.0 [facility] Nucleated RBC/100 WBC (Bld) [Ratio] 0 % 0-5 [facility] MCHC Auto (RBC) [Mass/Vol]Or dered By: Jennifer Davila on 08-23-2023 MCHC (RBC) [Mass/Vol] 33.3 g/dL 32-36 [facility] Mucus LM Ql (Urine sed)Order ed By: Jennifer Davila on 08-23-2023 Mucus Ql (Urine sed) 0 SEEN /hpf [facility] Nitrite Test strip Ql (U)Ord ered By: Jennifer Davila on 08-23-2023 Nitrite Ql (U) Negative Negative [facility] No Panel InformationOrdered By: Jennifer Davila on 08-23-2023 Estimated Creatinine Clearance Calc 57.81 ml/min [facility] Estimated GFR (MDRD) Amer 72 mL/min >60 [facility] Comment on above: GFR Calc Estimated GFR (MDRD) Non-Af Amer 60 mL/min >60 [facility] Comment on above: Non- GFR Calc Troponin I High Sensitivity 3 pg/mL 3.0-54.0 [facility] Comment on above: Please Note: New [place]i t Units and Gender Specific Reference Ranges. For more information see Policy Stat Procedure [place] High Sensitivity Troponin (TNIH) and attachments. Platelets bldOrdered By: Kole Davila on 08-23-2023 Platelets (Bld) [#/Vol] 264 10*3/uL 150-450 [facility] Protein Test strip Ql (U)Ord ered By: Jennifer Davila on 08-23-2023 Protein Ql (U) Negative Negative [facility] Serum or plasma albumin alphonso urement (mass/volume)Ordered By: Jennifer Davila on 08-23-2023 Albumin [Mass/Vol] 3.6 g/dL 3.2-5.0 [facility] Serum or plasma albumin/glob ulin mass ratioOrdered By: Jennifer Davila on 08-23-2023 Albumin/Globulin [Mass ratio] 0.9 {ratio} 0.9-2.4 [facility] Serum or plasma calcium alphonso urement (mass/volume)Ordered By: Jennifer Davila on 08-23-2023 Calcium [Mass/Vol] 8.8 mg/dL 8.5-10.1 [facility] Serum or plasma creatinine m easurement (mass/volume)Ordered By: Jennifer Davila on 08-23-2023 Creatinine [Mass/Vol] 1.05 mg/dL 0.55-1.02 [facility] Comment on above: The validity of the calculated GFR & GFRAA in patients over 70 years has not been determined. Clinical correlation is essential. Serum or plasma urea nitroge n measurement (mass/volume)Ordered By: Jennifer Davila on 08-23-2023 Urea nitrogen [Mass/Vol] 10 mg/dL 7-18 [facility] Squamous epithelial cells de tection in urine sediment by light microscopyOrdered By: Jennifer Davila on 08-23-2023 Epithelial cells.squamous LM Ql (Urine sed) 0-5 SEEN /hpf 5-10 [facility] Thin prep Papanicolaou smear with manual screeningOrdered By: Jennifer Davila on 08-23-2023 Thin prep Papanicolaou smear with manual screening 18 U/L 15-37 [facility] Thin prep Papanicolaou smear with manual screening 8 5-15 [facility] Urine blood detectionOrdered By: Jennifer Davila on 08-23-2023 RBC Ql (U) Negative Negative [facility] RBC Ql (U) 0 SEEN /hpf 0-5 [facility] Urine clarityOrdered By: Kole Davila on 08-23-2023 Clarity (U) Clear Clear [facility] Urine color determinationOrd ered By: Jennifer Davila on 08-23-2023 Color (U) Yellow Yellow [facility] Urine glucose detectionOrder ed By: Jennifer Davila on 08-23-2023 Glucose Ql (U) 1000 mg/dl Normal [facility] Urine leukocyte esterase det ection by dipstickOrdered By: Jennifer Davila on 08-23-2023 Leukocyte esterase Test strip Ql (U) Negative Negative [facility] Urine pHOrdered By: Suha Davila on 08-23-2023 pH (U) 6.0 [pH] 5.0 - 8.0 [facility] Urine sediment bacteria coun t by microscopy (number/high power field)Ordered By: Jennifer Davila on 08-23-2023 Bacteria LM.HPF (Urine sed) [#/Area] 0 /[HPF] None Seen [facility] Urine specific gravity measu rementOrdered By: Jennifer Davila on 08-23-2023 Specific gravity (U) [Rel density] 1.010 1.002-1.030 [facility] Urobilinogen Auto test strip Ql (U)Ordered By: Jennifer Davila on 08-23-2023 Urobilinogen Ql (U) Normal mg/dl Normal [facility] Absolute lymphocyte countOrd ered By: Caprice Jerry on 07-29-2023 Lymphocytes Auto (Unsp spec) [#/Vol] 2.24 10*3/uL 0.83-4.51 [facility] Basophil percentageOrdered B y: Caprice Jerry on 07-29-2023 Basophils/100 WBC (Bld) 0.5 % 0-[address] [facility] Bilirubin [Mass/Vol] 0.30 mg/dL 0.20-1.00 [facility] Comment on above: For patients on eltr ombopag therapy, use of Dimension [place] TBIL is not recommended. Chloride [Moles/Vol] 102 mmol/L 98-107 [facility] Eosinophils/100 WBC (Bld) 1.6 % 0-5 [facility] Glucose [Mass/Vol] 173 mg/dL 74-106 [facility] Comment on above: Fasting Glucose resu lt greater than or equal to 126 mg/dL suggests DIABETES MELLITUS per A.D.A. criteria. Neutrophils (Bld) [#/Vol] 5.6 10*3/uL 2.0-7.7 [facility] Neutrophils/100 WBC (Bld) 63.7 % 47-70 [facility] Potassium [Moles/Vol] 3.9 mmol/L 3.5-5.1 [facility] Protein [Mass/Vol] 7.3 g/dL 6.4-8.2 [facility] Sodium [Moles/Vol] 135 mmol/L 136-145 [facility] WBC (Bld) [#/Vol] 8.8 10*3/uL 4.4-11.0 [facility] Beta hCG serum qualOrdered B y: Caprice Jerry on 07-29-2023 Beta HCG ( test) Ql Negative [facility] Blood erythrocytes count (nu mber/volume)Ordered By: Caprice Jerry on 07-29-2023 RBC (Bld) [#/Vol] 3.94 10*6/uL 4.2-5.4 [facility] Blood hemoglobin measurement (mass/volume)Ordered By: Caprice Jerry on 07-29-2023 Hemoglobin (Bld) [Mass/Vol] 13.1 g/dL 12.0-15.0 [facility] Blood lymphocytes/100 leukoc ytesOrdered By: Caprice Jerry on 07-29-2023 Lymphocytes/100 WBC (Bld) 25.4 % 19-41 [facility] Blood monocytes/100 leukocyt esOrdered By: Caprice Jerry on 07-29-2023 Monocytes/100 WBC (Bld) 8.5 % 0-[address] [facility] Blood platelet mean volumeOr dered By: Caprice Jerry on 07-29-2023 Platelet mean volume (Bld) [Entitic vol] 9.6 fL 6.2-12.0 [facility] Determination of erythrocyte mean corpuscular volume (MCV)Ordered By: Caprice Jerry on 07-29-2023 MCV (RBC) [Entitic vol] 97.7 fL 81-[address] [facility] Direct bilirubinOrdered By: Caprice Jerry on 07-29-2023 Bilirubin.direct [Mass/Vol] 0.08 mg/dL 0.00-0.30 [facility] Hematocrit Auto (Bld) [Volum e fraction]Ordered By: Caprice Jerry on 07-29-2023 Hematocrit (Bld) [Volume fraction] 38.5 % 37-47 [facility] Laboratory - Chemistry and C hemistry - challengeOrdered By: Caprice Jerry on 07-29-2023 ALP [Catalytic activity/Vol] 93 U/L 45-117 [facility] ALT [Catalytic activity/Vol] 45 U/L 13-56 [facility] CO2 [Moles/Vol] 26.0 mmol/L 21.0-32.0 [facility] Globulin (S) [Mass/Vol] 3.8 g/dL 2.2-4.[address] [facility] Lipase [Catalytic activity/Vol] 32 U/L 13-75 [facility] Comment on above: Please note:LIPASE r evised reference range effective 23. New Lipase methodology. Expected to produce lower values than the previous assay method. NEW Reference Range: 13 - 75 U/L Urea nitrogen/Creatinine [Mass ratio] 12.5 mg/mg 10-20 [facility] Laboratory - Hematology and Cell countsOrdered By: Caprice Jerry on 07-29-2023 Erythrocyte distribution width (RBC) [Entitic vol] 45.1 fL 35.1-43.9 [facility] Erythrocyte distribution width (RBC) [Ratio] 12.7 % 11.6-14.6 [facility] Immature granulocytes/100 WBC (Bld) 0.300 % 0.0-0.9 [facility] Comment on above: IG% - Immature Granu locytes (promyelocytes, myelocytes and metamyelocytes) > 1% indicates that a LEFT SHIFT is Present. MCH (RBC) [Entitic mass] 33.2 pg 27.0-32.0 [facility] Nucleated RBC/100 WBC (Bld) [Ratio] 0 % 0-5 [facility] MCHC Auto (RBC) [Mass/Vol]Or dered By: Caprice Jerry on 07-29-2023 MCHC (RBC) [Mass/Vol] 34.0 g/dL 32-36 [facility] No Panel InformationOrdered By: Caprice Jerry on 07-29-2023 Troponin I High Sensitivity 4 pg/mL 3.0-54.0 [facility] Comment on above: Please Note: New [place] t Units and Gender Specific Reference Ranges. For more information see Policy Stat Procedure [place] High Sensitivity Troponin (TNIH) and attachments. Estimated Creatinine Clearance Calc 68.98 ml/min [facility] Estimated GFR (MDRD) Amer 89 mL/min >60 [facility] Comment on above: GFR Calc Estimated GFR (MDRD) Non-Af Amer 74 mL/min >60 [facility] Comment on above: Non- GFR Calc Platelets bldOrdered By: Leona Jerry on 07-29-2023 Platelets (Bld) [#/Vol] 281 10*3/uL 150-450 [facility] Serum or plasma albumin alphonso urement (mass/volume)Ordered By: Caprice Jerry on 07-29-2023 Albumin [Mass/Vol] 3.5 g/dL 3.2-5.0 [facility] Serum or plasma calcium alphonso urement (mass/volume)Ordered By: Caprice Jerry on 07-29-2023 Calcium [Mass/Vol] 8.5 mg/dL 8.5-10.1 [facility] Serum or plasma creatinine m easurement (mass/volume)Ordered By: Caprice Jerry on 07-29-2023 Creatinine [Mass/Vol] 0.88 mg/dL 0.55-1.02 [facility] Comment on above: The validity of the calculated GFR & GFRAA in patients over 70 years has not been determined. Clinical correlation is essential. Serum or plasma urea nitroge n measurement (mass/volume)Ordered By: Caprice Jerry on 07-29-2023 Urea nitrogen [Mass/Vol] 11 mg/dL 7-18 [facility] Thin prep Papanicolaou smear with manual screeningOrdered By: Caprice Jerry on 07-29-2023 Thin prep Papanicolaou smear with manual screening 24 U/L 15-37 [facility] Thin prep Papanicolaou smear with manual screening 7 5-15 [facility] Absolute lymphocyte countOrd ered By: Milana Garcia on 07-19-2023 Lymphocytes Auto (Unsp spec) [#/Vol] 2.51 10*3/uL 0.83-4.51 [facility] Basophil percentageOrdered B y: Milana Garcia on 07-19-2023 Basophil percentage 3.1 mg/dL 2.5-4.9 [facility] Basophils/100 WBC (Bld) 0.4 % 0-[address] [facility] Bilirubin [Mass/Vol] 0.50 mg/dL 0.20-1.00 [facility] Comment on above: For patients on eltr ombopag therapy, use of Dimension [place] TBIL is not recommended. Chloride [Moles/Vol] 106 mmol/L 98-107 [facility] Eosinophils/100 WBC (Bld) 3.2 % 0-5 [facility] Glucose [Mass/Vol] 123 mg/dL 74-106 [facility] Comment on above: Fasting Glucose resu lt from 100 to 125 mg/dL suggests IMPAIRED HOMEOSTASIS per A.D.A. criteria. Neutrophils (Bld) [#/Vol] 3.7 10*3/uL 2.0-7.7 [facility] Neutrophils/100 WBC (Bld) 52.0 % 47-70 [facility] Potassium [Moles/Vol] 3.5 mmol/L 3.5-5.1 [facility] Protein [Mass/Vol] 6.9 g/dL 6.4-8.2 [facility] Sodium [Moles/Vol] 140 mmol/L 136-145 [facility] WBC (Bld) [#/Vol] 7.2 10*3/uL 4.4-11.0 [facility] Blood erythrocytes count (nu mber/volume)Ordered By: Milana Garcia on 07-19-2023 RBC (Bld) [#/Vol] 3.83 10*6/uL 4.2-5.4 [facility] Blood hemoglobin measurement (mass/volume)Ordered By: Milana Garcia on 07-19-2023 Hemoglobin (Bld) [Mass/Vol] 12.3 g/dL 12.0-15.0 [facility] Blood lymphocytes/100 leukoc ytesOrdered By: Milana Garcia on 07-19-2023 Lymphocytes/100 WBC (Bld) 35.1 % 19-41 [facility] Blood monocytes/100 leukocyt esOrdered By: Milana Garcia on 07-19-2023 Monocytes/100 WBC (Bld) 9.0 % 0-[address] [facility] Blood platelet mean volumeOr dered By: Milana Garcia on 07-19-2023 Platelet mean volume (Bld) [Entitic vol] 9.6 fL 6.2-12.0 [facility] Determination of erythrocyte mean corpuscular volume (MCV)Ordered By: Milana Garcia on 07-19-2023 MCV (RBC) [Entitic vol] 97.9 fL 81-[address] [facility] Hematocrit Auto (Bld) [Volum e fraction]Ordered By: Milana Garcia on 07-19-2023 Hematocrit (Bld) [Volume fraction] 37.5 % 37-47 [facility] Laboratory - Chemistry and C hemistry - challengeOrdered By: Milana Garcia on 07-19-2023 ALP [Catalytic activity/Vol] 68 U/L 45-117 [facility] ALT [Catalytic activity/Vol] 28 U/L 13-56 [facility] CO2 [Moles/Vol] 27.0 mmol/L 21.0-32.0 [facility] Cobalamin (Vitamin B12) [Mass/Vol] 534 pg/mL 211-911 [facility] Globulin (S) [Mass/Vol] 3.6 g/dL 2.2-4.[address] [facility] Magnesium [Mass/Vol] 1.6 mg/dL 1.6-2.6 [facility] Urea nitrogen/Creatinine [Mass ratio] 10.4 mg/mg 10-20 [facility] Laboratory - Hematology and Cell countsOrdered By: Milana Garcia on 07-19-2023 Erythrocyte distribution width (RBC) [Entitic vol] 43.8 fL 35.1-43.9 [facility] Erythrocyte distribution width (RBC) [Ratio] 12.3 % 11.6-14.6 [facility] Immature granulocytes/100 WBC (Bld) 0.300 % 0.0-0.9 [facility] Comment on above: IG% - Immature Granu locytes (promyelocytes, myelocytes and metamyelocytes) > 1% indicates that a LEFT SHIFT is Present. MCH (RBC) [Entitic mass] 32.1 pg 27.0-32.0 [facility] Nucleated RBC/100 WBC (Bld) [Ratio] 0 % 0-5 [facility] MCHC Auto (RBC) [Mass/Vol]Or dered By: Milana Garcia on 07-19-2023 MCHC (RBC) [Mass/Vol] 32.8 g/dL 32-36 [facility] No Panel InformationOrdered By: Milana Garcia on 07-19-2023 Estimated GFR (MDRD) Amer 121 mL/min >60 [facility] Comment on above: GFR Calc Estimated GFR (MDRD) Non-Af Amer 100 mL/min >60 [facility] Comment on above: Non- GFR Calc Thyroid Stimulating Hormone (TSH) 1.07 uIU/mL 0.358-3.74 [facility] Platelets bldOrdered By: Yamel Garcia on 07-19-2023 Platelets (Bld) [#/Vol] 245 10*3/uL 150-450 [facility] Serum or plasma albumin alphonso urement (mass/volume)Ordered By: Milana Garcia on 07-19-2023 Albumin [Mass/Vol] 3.3 g/dL 3.2-5.0 [facility] Serum or plasma albumin/glob ulin mass ratioOrdered By: Milana Garcia on 07-19-2023 Albumin/Globulin [Mass ratio] 0.9 {ratio} 0.9-2.4 [facility] Serum or plasma calcium alphonso urement (mass/volume)Ordered By: Milana Garcia on 07-19-2023 Calcium [Mass/Vol] 8.4 mg/dL 8.5-10.1 [facility] Serum or plasma creatinine m easurement (mass/volume)Ordered By: Milana Garcia on 07-19-2023 Creatinine [Mass/Vol] 0.68 mg/dL 0.55-1.02 [facility] Comment on above: The validity of the calculated GFR & GFRAA in patients over 70 years has not been determined. Clinical correlation is essential. Serum or plasma folate measu rement (mass/volume)Ordered By: Milana Garcia on 07-19-2023 Folate [Mass/Vol] 58.30 ng/mL 3.1-55.4 [facility] Serum or plasma urea nitroge n measurement (mass/volume)Ordered By: Milana Garcia on 07-19-2023 Urea nitrogen [Mass/Vol] 7 mg/dL 7-18 [facility] Thin prep Papanicolaou smear with manual screeningOrdered By: Milana Garcia on 07-19-2023 Thin prep Papanicolaou smear with manual screening 19 U/L 15-37 [facility] Thin prep Papanicolaou smear with manual screening 7 5-15 [facility] No Panel InformationOrdered By: Dr. Jerry on 05-25-2023 Troponin I High Sensitivity 3 pg/mL 3.0-54.0 [facility] Comment on above: Please Note: [place] Units and Gender Specific Reference Ranges. For more information see Policy Stat Procedure [place] High Sensitivity Troponin (TNIH) and attachments. Absolute lymphocyte countOrd ered By: Dr. Jerry on 05-24-2023 Lymphocytes Auto (Unsp spec) [#/Vol] 3.25 10*3/uL 0.83-4.51 [facility] Basophil percentageOrdered B y: Dr. Jerry on 05-24-2023 Basophil percentage 0 SEEN /hpf 0-5 [facility] Basophils/100 WBC (Bld) 0.7 % 0-[address] [facility] Bilirubin [Mass/Vol] 0.20 mg/dL 0.20-1.00 [facility] Comment on above: For patients on eltr ombopag therapy, use of Dimension [place] TBIL is not recommended. Chloride [Moles/Vol] 112 mmol/L 98-107 [facility] Eosinophils/100 WBC (Bld) 2.2 % 0-5 [facility] Glucose [Mass/Vol] 127 mg/dL 74-106 [facility] Comment on above: Fasting Glucose resu lt greater than or equal to 126 mg/dL suggests DIABETES MELLITUS per A.D.A. criteria. Neutrophils (Bld) [#/Vol] 2.9 10*3/uL 2.0-7.7 [facility] Neutrophils/100 WBC (Bld) 40.3 % 47-70 [facility] Potassium [Moles/Vol] 5.9 mmol/L 3.5-5.1 [facility] Comment on above: Moderate Hemolysis, Result may be falsely increased. Protein [Mass/Vol] 6.7 g/dL 6.4-8.2 [facility] Sodium [Moles/Vol] 138 mmol/L 136-145 [facility] WBC (Bld) [#/Vol] 7.2 10*3/uL 4.4-11.0 [facility] Beta hCG serum qualOrdered B y: Dr. Jerry on 05-24-2023 Beta HCG ( test) Ql Negative [facility] Bilirubin Test strip Ql (U)O rdered By: Dr. Jerry on 05-24-2023 Bilirubin Ql (U) Negative Negative [facility] Blood erythrocytes count (nu mber/volume)Ordered By: Dr. Jerry on 05-24-2023 RBC (Bld) [#/Vol] 3.88 10*6/uL 4.2-5.4 [facility] Blood hemoglobin measurement (mass/volume)Ordered By: Dr. Jerry on 05-24-2023 Hemoglobin (Bld) [Mass/Vol] 12.9 g/dL 12.0-15.0 [facility] Blood lymphocytes/100 leukoc ytesOrdered By: Dr. Jerry on 05-24-2023 Lymphocytes/100 WBC (Bld) 45.0 % 19-41 [facility] Blood monocytes/100 leukocyt esOrdered By: Dr. Jerry on 05-24-2023 Monocytes/100 WBC (Bld) 11.4 % 0-[address] [facility] Blood platelet mean volumeOr dered By: Dr. Jerry on 05-24-2023 Platelet mean volume (Bld) [Entitic vol] 9.8 fL 6.2-12.0 [facility] Determination of erythrocyte mean corpuscular volume (MCV)Ordered By: Dr. Jerry on 05-24-2023 MCV (RBC) [Entitic vol] 100.0 fL 81-[address] [facility] Direct bilirubinOrdered By: Dr. Jerry on 05-24-2023 Bilirubin.direct [Mass/Vol] mg/dL 0.00-0.30 [facility] Hematocrit Auto (Bld) [Volum e fraction]Ordered By: Dr. Jerry on 05-24-2023 Hematocrit (Bld) [Volume fraction] 38.8 % 37-47 [facility] Ketones Test strip Ql (U)Ord ered By: Dr. Jerry on 05-24-2023 Ketones Ql (U) Negative Negative [facility] Laboratory - Chemistry and C hemistry - challengeOrdered By: Dr. Jerry on 05-24-2023 ALP [Catalytic activity/Vol] 57 U/L 45-117 [facility] ALT [Catalytic activity/Vol] 27 U/L 13-56 [facility] CO2 [Moles/Vol] 19.0 mmol/L 21.0-32.0 [facility] Globulin (S) [Mass/Vol] 3.8 g/dL 2.2-4.[address] [facility] Lipase [Catalytic activity/Vol] 64 U/L 13-75 [facility] Comment on above: Please note:LIPASE r evised reference range effective 23. New Lipase methodology. Expected to produce lower values than the previous assay method. NEW Reference Range: 13 - 75 U/L Urea nitrogen/Creatinine [Mass ratio] 9.1 mg/mg 10-20 [facility] Laboratory - Hematology and Cell countsOrdered By: Dr. Jerry on 05-24-2023 Erythrocyte distribution width (RBC) [Entitic vol] 46.2 fL 35.1-43.9 [facility] Erythrocyte distribution width (RBC) [Ratio] 12.6 % 11.6-14.6 [facility] Immature granulocytes/100 WBC (Bld) 0.400 % 0.0-0.9 [facility] Comment on above: IG% - Immature Granu locytes (promyelocytes, myelocytes and metamyelocytes) > 1% indicates that a LEFT SHIFT is Present. MCH (RBC) [Entitic mass] 33.2 pg 27.0-32.0 [facility] Nucleated RBC/100 WBC (Bld) [Ratio] 0 % 0-5 [facility] MCHC Auto (RBC) [Mass/Vol]Or dered By: Dr. Jerry on 05-24-2023 MCHC (RBC) [Mass/Vol] 33.2 g/dL 32-36 [facility] Mucus LM Ql (Urine sed)Order ed By: Dr. Jerry on 05-24-2023 Mucus Ql (Urine sed) 0 SEEN /hpf [facility] Nitrite Test strip Ql (U)Ord ered By: Dr. eJrry on 05-24-2023 Nitrite Ql (U) Negative Negative [facility] No Panel InformationOrdered By: Dr. Jerry on 05-24-2023 Estimated Creatinine Clearance Calc 45.99 ml/min [facility] Estimated GFR (MDRD) Amer 56 mL/min >60 [facility] Comment on above: GFR Calc Estimated GFR (MDRD) Non-Af Amer 46 mL/min >60 [facility] Comment on above: Non- GFR Calc Ethyl Alcohol Level 193.0 mg/dL [facility] Comment on above: The serum:whole bloo d ethanol ratio is approximately 1.14and varies slightly with hematocrit. Medical Alcohol reference interval and critical value innon-tolerant individuals; 50 - 100 Impairment 100 Intoxication 100 - 250 Severe Poisoning 250 - 400 Deep/possible fatal coma Platelets bldOrdered By: Dr. Jerry on 05-24-2023 Platelets (Bld) [#/Vol] 276 10*3/uL 150-450 [facility] Protein Test strip Ql (U)Ord ered By: Dr. Jerry on 05-24-2023 Protein Ql (U) Negative Negative [facility] Serum or plasma acetone alphonso urement (mass/volume)Ordered By: Dr. Jerry on 05-24-2023 Acetone [Mass/Vol] Negative NEG [facility] Serum or plasma albumin alphonso urement (mass/volume)Ordered By: Dr. Jerry on 05-24-2023 Albumin [Mass/Vol] 2.9 g/dL 3.2-5.0 [facility] Serum or plasma calcium alphonso urement (mass/volume)Ordered By: Dr. Jerry on 05-24-2023 Calcium [Mass/Vol] 7.5 mg/dL 8.5-10.1 [facility] Serum or plasma creatinine m easurement (mass/volume)Ordered By: Dr. Jerry on 05-24-2023 Creatinine [Mass/Vol] 1.32 mg/dL 0.55-1.02 [facility] Comment on above: The validity of the calculated GFR & GFRAA in patients over 70 years has not been determined. Clinical correlation is essential. Serum or plasma urea nitroge n measurement (mass/volume)Ordered By: Dr. Jerry on 05-24-2023 Urea nitrogen [Mass/Vol] 12 mg/dL 7-18 [facility] Squamous epithelial cells de tection in urine sediment by light microscopyOrdered By: Dr. Jerry on 05-24-2023 Epithelial cells.squamous LM Ql (Urine sed) 0 SEEN /hpf 5-10 [facility] Thin prep Papanicolaou smear with manual screeningOrdered By: Dr. Jerry on 05-24-2023 Thin prep Papanicolaou smear with manual screening 47 U/L 15-37 [facility] Comment on above: Moderate Hemolysis, Result may be falsely increased. Thin prep Papanicolaou smear with manual screening 7 5-15 [facility] Urine blood detectionOrdered By: Dr. Jerry on 05-24-2023 RBC Ql (U) Negative Negative [facility] RBC Ql (U) 0 SEEN /hpf 0-5 [facility] Urine clarityOrdered By: Dr. Jerry on 05-24-2023 Clarity (U) Clear Clear [facility] Urine color determinationOrd ered By: Dr. Jerry on 05-24-2023 Color (U) Yellow Yellow [facility] Urine glucose detectionOrder ed By: Dr. Jerry on 05-24-2023 Glucose Ql (U) 1000 mg/dl Normal [facility] Urine leukocyte esterase det ection by dipstickOrdered By: Dr. Jerry on 05-24-2023 Leukocyte esterase Test strip Ql (U) Negative Negative [facility] Urine pHOrdered By: Dr. Maximiliano morris on 05-24-2023 pH (U) 6.5 [pH] 5.0 - 8.0 [facility] Urine sediment bacteria coun t by microscopy (number/high power field)Ordered By: Dr. Jerry on 05-24-2023 Bacteria LM.HPF (Urine sed) [#/Area] 0 /[HPF] None Seen [facility] Urine specific gravity measu rementOrdered By: Dr. Jerry on 05-24-2023 Specific gravity (U) [Rel density] 1.005 1.002-1.030 [facility] Urobilinogen Auto test strip Ql (U)Ordered By: Dr. Jerry on 05-24-2023 Urobilinogen Ql (U) Normal mg/dl Normal [facility] Basophil percentageOrdered B y: Milana Garcia on 05-19-2023 Basophil percentage 2.6 mg/dL 2.5-4.9 [facility] Bilirubin [Mass/Vol] 0.30 mg/dL 0.20-1.00 [facility] Comment on above: For patients on eltr ombopag therapy, use of Dimension [place] TBIL is not recommended. Protein [Mass/Vol] 7.2 g/dL 6.4-8.2 [facility] Direct bilirubinOrdered By: Milana Garcia on 05-19-2023 Bilirubin.direct [Mass/Vol] 0.11 mg/dL 0.00-0.30 [facility] Laboratory - Chemistry and C hemistry - challengeOrdered By: Milana Garcia on 05-19-2023 ALP [Catalytic activity/Vol] 69 U/L 45-117 [facility] ALT [Catalytic activity/Vol] 22 U/L 13-56 [facility] Cobalamin (Vitamin B12) [Mass/Vol] 361 pg/mL 211-911 [facility] Free T4 [Mass/Vol] 0.78 ng/dL 0.76-1.46 [facility] Globulin (S) [Mass/Vol] 3.8 g/dL 2.2-4.[address] [facility] Magnesium [Mass/Vol] 1.8 mg/dL 1.6-2.6 [facility] No Panel InformationOrdered By: Milana Garcia on 05-19-2023 Thyroid Stimulating Hormone (TSH) 1.95 uIU/mL 0.358-3.74 [facility] Serum or plasma albumin alphonso urement (mass/volume)Ordered By: Milana Garcia on 05-19-2023 Albumin [Mass/Vol] 3.4 g/dL 3.2-5.0 [facility] Serum or plasma ferritin alexis surement (mass/volume)Ordered By: Milana Garcia on 05-19-2023 Ferritin [Mass/Vol] 69 ng/mL 8-252 [facility] Serum or plasma folate measu rement (mass/volume)Ordered By: Milana Garcia on 05-19-2023 Folate [Mass/Vol] 4.00 ng/mL 3.1-55.4 [facility] Thin prep Papanicolaou smear with manual screeningOrdered By: Milana Garcia on 05-19-2023 Thin prep Papanicolaou smear with manual screening 18 U/L 15-37 [facility] No Panel InformationOrdered By: Dr. Dyer on 05-05-2023 Troponin I High Sensitivity < 3 pg/mL 3.0-54.0 [facility] Comment on above: Please Note: [place] Units and Gender Specific Reference Ranges. For more information see Policy Stat Procedure [place] High Sensitivity Troponin (TNIH) and attachments. Absolute lymphocyte countOrd ered By: Dr. Dyer on 05-04-2023 Lymphocytes Auto (Unsp spec) [#/Vol] 3.17 10*3/uL 0.83-4.51 [facility] Basophil percentageOrdered B y: Dr. Dyer on 05-04-2023 Basophils/100 WBC (Bld) 0.4 % 0-[address] [facility] Chloride [Moles/Vol] 105 mmol/L 98-107 [facility] Eosinophils/100 WBC (Bld) 2.7 % 0-5 [facility] Glucose [Mass/Vol] 103 mg/dL 74-106 [facility] Comment on above: Fasting Glucose resu lt from 100 to 125 mg/dL suggests IMPAIRED HOMEOSTASIS per A.D.A. criteria. Neutrophils (Bld) [#/Vol] 4.6 10*3/uL 2.0-7.7 [facility] Neutrophils/100 WBC (Bld) 51.3 % 47-70 [facility] Potassium [Moles/Vol] 3.4 mmol/L 3.5-5.1 [facility] Sodium [Moles/Vol] 138 mmol/L 136-145 [facility] WBC (Bld) [#/Vol] 8.9 10*3/uL 4.4-11.0 [facility] Blood erythrocytes count (nu mber/volume)Ordered By: Dr. Dyer on 05-04-2023 RBC (Bld) [#/Vol] 3.72 10*6/uL 4.2-5.4 [facility] Blood hemoglobin measurement (mass/volume)Ordered By: Dr. Dyer on 05-04-2023 Hemoglobin (Bld) [Mass/Vol] 12.1 g/dL 12.0-15.0 [facility] Blood lymphocytes/100 leukoc ytesOrdered By: Dr. Dyer on 05-04-2023 Lymphocytes/100 WBC (Bld) 35.6 % 19-41 [facility] Blood monocytes/100 leukocyt esOrdered By: Dr. Dyer on 05-04-2023 Monocytes/100 WBC (Bld) 9.4 % 0-[address] [facility] Blood platelet mean volumeOr dered By: Dr. Dyer on 05-04-2023 Platelet mean volume (Bld) [Entitic vol] 9.4 fL 6.2-12.0 [facility] Determination of erythrocyte mean corpuscular volume (MCV)Ordered By: Dr. Dyer on 06-06-2023 MCV (RBC) [Entitic vol] 98.4 fL 81-[address] [facility] Hematocrit Auto (Bld) [Volum e fraction]Ordered By: Dr. Dyer on 05-04-2023 Hematocrit (Bld) [Volume fraction] 36.6 % 37-47 [facility] Laboratory - Chemistry and C hemistry - challengeOrdered By: Dr. Dyer on 05-04-2023 CO2 [Moles/Vol] 27.0 mmol/L 21.0-32.0 [facility] Urea nitrogen/Creatinine [Mass ratio] 19.2 mg/mg 10-20 [facility] Laboratory - Hematology and Cell countsOrdered By: Dr. Dyer on 05-04-2023 Erythrocyte distribution width (RBC) [Entitic vol] 47.8 fL 35.1-43.9 [facility] Erythrocyte distribution width (RBC) [Ratio] 13.3 % 11.6-14.6 [facility] Immature granulocytes/100 WBC (Bld) 0.600 % 0.0-0.9 [facility] Comment on above: IG% - Immature Granu locytes (promyelocytes, myelocytes and metamyelocytes) > 1% indicates that a LEFT SHIFT is Present. MCH (RBC) [Entitic mass] 32.5 pg 27.0-32.0 [facility] Nucleated RBC/100 WBC (Bld) [Ratio] 0 % 0-5 [facility] MCHC Auto (RBC) [Mass/Vol]Or dered By: Dr. Dyer on 05-04-2023 MCHC (RBC) [Mass/Vol] 33.1 g/dL 32-36 [facility] No Panel InformationOrdered By: Dr. Dyer on 05-04-2023 Estimated Creatinine Clearance Calc 83.15 ml/min [facility] Estimated GFR (MDRD) Amer 110 mL/min >60 [facility] Comment on above: GFR Calc Estimated GFR (MDRD) Non-Af Amer 91 mL/min >60 [facility] Comment on above: Non- GFR Calc Platelets bldOrdered By: Dr. Dyer on 05-04-2023 Platelets (Bld) [#/Vol] 274 10*3/uL 150-450 [facility] Serum or plasma calcium alphonso urement (mass/volume)Ordered By: Dr. Dyer on 05-04-2023 Calcium [Mass/Vol] 8.6 mg/dL 8.5-10.1 [facility] Serum or plasma creatinine m easurement (mass/volume)Ordered By: Dr. Dyer on 05-04-2023 Creatinine [Mass/Vol] 0.73 mg/dL 0.55-1.02 [facility] Comment on above: The validity of the calculated GFR & GFRAA in patients over 70 years has not been determined. Clinical correlation is essential. Serum or plasma urea nitroge n measurement (mass/volume)Ordered By: Dr. Dyer on 05-04-2023 Urea nitrogen [Mass/Vol] 14 mg/dL - [facility] Thin prep Papanicolaou smear with manual screeningOrdered By: Dr. Dyer on 05-04-2023 Thin prep Papanicolaou smear with manual screening 6 - [facility] Laboratory - Microbiology an d Antimicrobial susceptibilityOrdered By: Dr. Jacobs on 04-15-2023 Bacteria identified Cx Nom (Bld) No growth in 5 days. [facility] Absolute lymphocyte countOrd ered By: Dr. Kiran on 04-11-2023 Lymphocytes Auto (Unsp spec) [#/Vol] 2.75 10*3/uL 0.83-4.51 [facility] Basophil percentageOrdered B y: Dr. Kiran on 04-11-2023 Basophils/100 WBC (Bld) 0.3 % 0-[address] [facility] Chloride [Moles/Vol] 105 mmol/L 98-107 [facility] Eosinophils/100 WBC (Bld) 0.7 % 0-5 [facility] Glucose [Mass/Vol] 143 mg/dL 74-106 [facility] Comment on above: Fasting Glucose resu lt greater than or equal to 126 mg/dL suggests DIABETES MELLITUS per A.D.A. criteria. Neutrophils (Bld) [#/Vol] 7.8 10*3/uL 2.0-7.7 [facility] Neutrophils/100 WBC (Bld) 67.1 % 47-70 [facility] Potassium [Moles/Vol] 4.1 mmol/L 3.5-5.1 [facility] Sodium [Moles/Vol] 137 mmol/L 136-145 [facility] WBC (Bld) [#/Vol] 11.6 10*3/uL 4.4-11.0 [facility] Basophil percentageOrdered B y: Dr. Johnson on 04-11-2023 Lactate [Moles/Vol] 0.6 mmol/L 0.4-2.0 [facility] Blood erythrocytes count (nu mber/volume)Ordered By: Dr. Kiran on 04-11-2023 RBC (Bld) [#/Vol] 3.87 10*6/uL 4.2-5.4 [facility] Blood hemoglobin measurement (mass/volume)Ordered By: Dr. Kiran on 04-11-2023 Hemoglobin (Bld) [Mass/Vol] 12.6 g/dL 12.0-15.0 [facility] Blood lymphocytes/100 leukoc ytesOrdered By: Dr. Kiran on 04-11-2023 Lymphocytes/100 WBC (Bld) 23.8 % 19-41 [facility] Blood monocytes/100 leukocyt esOrdered By: Dr. Kiran on 04-11-2023 Monocytes/100 WBC (Bld) 7.8 % 0-[address] [facility] Blood platelet mean volumeOr dered By: Dr. Kiran on 04-11-2023 Platelet mean volume (Bld) [Entitic vol] 9.7 fL 6.2-12.0 [facility] Determination of erythrocyte mean corpuscular volume (MCV)Ordered By: Dr. Kiran on 04-11-2023 MCV (RBC) [Entitic vol] 100.5 fL 81-[address] [facility] Glucose Glucometer (BldC) [M ass/Vol]Ordered By: Dr. Johnson on 04-11-2023 Glucose [Mass/Vol] 95 mg/dL 74-106 [facility] Comment on above: MANAGEMENT OF PATIEN T CARE PER NURSING PROTOCOL Hematocrit Auto (Bld) [Volum e fraction]Ordered By: Dr. Kiran on 04-11-2023 Hematocrit (Bld) [Volume fraction] 38.9 % 37-47 [facility] Laboratory - Chemistry and C hemistry - challengeOrdered By: Dr. Kiran on 04-11-2023 CO2 [Moles/Vol] 24.0 mmol/L 21.0-32.0 [facility] Urea nitrogen/Creatinine [Mass ratio] 23.2 mg/mg 10-20 [facility] Laboratory - Hematology and Cell countsOrdered By: Dr. Kiran on 04-11-2023 Erythrocyte distribution width (RBC) [Entitic vol] 47.8 fL 35.1-43.9 [facility] Erythrocyte distribution width (RBC) [Ratio] 13.1 % 11.6-14.6 [facility] Immature granulocytes/100 WBC (Bld) 0.300 % 0.0-0.9 [facility] Comment on above: IG% - Immature Granu locytes (promyelocytes, myelocytes and metamyelocytes) > 1% indicates that a LEFT SHIFT is Present. MCH (RBC) [Entitic mass] 32.6 pg 27.0-32.0 [facility] Nucleated RBC/100 WBC (Bld) [Ratio] 0 % 0-5 [facility] MCHC Auto (RBC) [Mass/Vol]Or dered By: Dr. Kiran on 04-11-2023 MCHC (RBC) [Mass/Vol] 32.4 g/dL 32-36 [facility] No Panel InformationOrdered By: Dr. Kiran on 04-11-2023 Estimated Creatinine Clearance Calc 74.03 ml/min [facility] Estimated GFR (MDRD) Amer 97 mL/min >60 [facility] Comment on above: GFR Calc Estimated GFR (MDRD) Non-Af Amer 80 mL/min >60 [facility] Comment on above: Non- GFR Calc Platelets bldOrdered By: Dr. Kiran on 04-11-2023 Platelets (Bld) [#/Vol] 246 10*3/uL 150-450 [facility] Serum or plasma calcium alphonso urement (mass/volume)Ordered By: Dr. Kiran on 04-11-2023 Calcium [Mass/Vol] 8.8 mg/dL 8.5-10.1 [facility] Serum or plasma creatinine m easurement (mass/volume)Ordered By: Dr. Kiran on 04-11-2023 Creatinine [Mass/Vol] 0.82 mg/dL 0.55-1.02 [facility] Comment on above: The validity of the calculated GFR & GFRAA in patients over 70 years has not been determined. Clinical correlation is essential. Serum or plasma urea nitroge n measurement (mass/volume)Ordered By: Dr. Kiran on 04-11-2023 Urea nitrogen [Mass/Vol] 19 mg/dL 7-18 [facility] Thin prep Papanicolaou smear with manual screeningOrdered By: Dr. Kiran on 04-11-2023 Thin prep Papanicolaou smear with manual screening 8 5-15 [facility] Basophil percentageOrdered B y: Dr. Jacobs on 04-10-2023 Chloride [Moles/Vol] 110 mmol/L 98-107 [facility] Glucose [Mass/Vol] 160 mg/dL 74-106 [facility] Comment on above: Fasting Glucose resu lt greater than or equal to 126 mg/dL suggests DIABETES MELLITUS per A.D.A. criteria. Lactate [Moles/Vol] 4.2 mmol/L 0.4-2.0 [facility] Comment on above: Critical Result(s) C alled at: 02:41:04 04/10/2023 by: Campos [employer]IST. Results read back by same. Potassium [Moles/Vol] 4.8 mmol/L 3.5-5.1 [facility] Sodium [Moles/Vol] 140 mmol/L 136-145 [facility] Basophil percentage 0 SEEN /hpf 0-5 [facility] Bilirubin Test strip Ql (U)O rdered By: Dr. Jacobs on 04-10-2023 Bilirubin Ql (U) Negative Negative [facility] HCO3 (BldA) [Moles/Vol]Order ed By: Dr. Jacobs on 04-10-2023 HCO3 (Bld) [Moles/Vol] 20 mmol/L 22- [facility] Ketones Test strip Ql (U)Ord ered By: Dr. Jacobs on 04-10-2023 Ketones Ql (U) Negative Negative [facility] Laboratory - Chemistry and C hemistry - challengeOrdered By: Dr. Jacobs on 04-10-2023 CO2 [Moles/Vol] 19.0 mmol/L 21.0-32.0 [facility] Urea nitrogen/Creatinine [Mass ratio] 15.8 mg/mg 10-20 [facility] CO2 [Moles/Vol] 21 mmol/L 23-33 [facility] Laboratory - Microbiology an d Antimicrobial susceptibilityOrdered By: David Jacobs on 04-10-2023 Bacteria identified Cx Nom (Bld) No growth in 5 days. [facility] Mucus LM Ql (Urine sed)Order ed By: Dr. Jacobs on 04-10-2023 Mucus Ql (Urine sed) 0 SEEN /hpf [facility] Nitrite Test strip Ql (U)Ord ered By: Dr. Jacobs on 04-10-2023 Nitrite Ql (U) Negative Negative [facility] No Panel InformationOrdered By: Dr. Jacobs on 04-10-2023 Estimated Creatinine Clearance Calc 60.10 ml/min [facility] Estimated GFR (MDRD) Amer 76 mL/min >60 [facility] Comment on above: GFR Calc Estimated GFR (MDRD) Non-Af Amer 63 mL/min >60 [facility] Comment on above: Non- GFR Calc Troponin I High Sensitivity < 3 pg/mL 3.0-54.0 [facility] Comment on above: Please Note: [place] Units and Gender Specific Reference Ranges. For more information see Policy Stat Procedure [place] High Sensitivity Troponin (TNIH) and attachments. Bed Mix Venous Bld PCO2 at Pat Temp 40.5 mmHg 41-51 [facility] Blood Gas Specimen Type GELACIO W [facility] Oxygen Delivery Device Room Air [facility] Venous Blood Base Excess -7 mmol/L -1.0-3.5 [facility] No Panel InformationOrdered By: Dr. Kiran on 04-10-2023 Troponin I High Sensitivity < 3 pg/mL 3.0-54.0 [facility] Comment on above: Please Note: [place] Units and Gender Specific Reference Ranges. For more information see Policy Stat Procedure [place] High Sensitivity Troponin (TNIH) and attachments. PO2 venousOrdered By: Dr. Jose wood on 04-10-2023 Oxygen (BldV) [Partial pressure] 54 mm[Hg] 25-40 [facility] Protein Test strip Ql (U)Ord ered By: Dr. Jacobs on 04-10-2023 Protein Ql (U) Negative Negative [facility] Serum or plasma acetone alphonso urement (mass/volume)Ordered By: Dr. Jacobs on 04-10-2023 Acetone [Mass/Vol] Negative NEG [facility] Serum or plasma calcium alphonso urement (mass/volume)Ordered By: Dr. Jacobs on 04-10-2023 Calcium [Mass/Vol] 7.3 mg/dL 8.5-10.1 [facility] Serum or plasma creatinine m easurement (mass/volume)Ordered By: Dr. Jacobs on 04-10-2023 Creatinine [Mass/Vol] 1.01 mg/dL 0.55-1.02 [facility] Comment on above: The validity of the calculated GFR & GFRAA in patients over 70 years has not been determined. Clinical correlation is essential. Serum or plasma urea nitroge n measurement (mass/volume)Ordered By: Dr. Jacobs on 04-10-2023 Urea nitrogen [Mass/Vol] 16 mg/dL 7-18 [facility] Squamous epithelial cells de tection in urine sediment by light microscopyOrdered By: Dr. Jacobs on 04-10-2023 Epithelial cells.squamous LM Ql (Urine sed) 0 SEEN /hpf 5-10 [facility] Thin prep Papanicolaou smear with manual screeningOrdered By: Dr. Jacobs on 04-10-2023 Thin prep Papanicolaou smear with manual screening 11 5-15 [facility] Urine blood detectionOrdered By: Dr. Jacobs on 04-10-2023 RBC Ql (U) Negative Negative [facility] RBC Ql (U) 0 SEEN /hpf 0-5 [facility] Urine clarityOrdered By: Dr. Jacobs on 04-10-2023 Clarity (U) Clear Clear [facility] Urine color determinationOrd ered By: Dr. Jacobs on 04-10-2023 Color (U) Yellow Yellow [facility] Urine glucose detectionOrder ed By: Dr. Jacobs on 04-10-2023 Glucose Ql (U) 1000 mg/dl Normal [facility] Urine leukocyte esterase det ection by dipstickOrdered By: Dr. Jacobs on 04-10-2023 Leukocyte esterase Test strip Ql (U) Negative Negative [facility] Urine pHOrdered By: Dr. Caren garza on 04-10-2023 pH (U) 6.5 [pH] 5.0 - 8.0 [facility] Urine sediment bacteria coun t by microscopy (number/high power field)Ordered By: Dr. Jacobs on 04-10-2023 Bacteria LM.HPF (Urine sed) [#/Area] 0 /[HPF] None Seen [facility] Urine specific gravity measu rementOrdered By: Dr. Jacobs on 04-10-2023 Specific gravity (U) [Rel density] 1.010 1.002-1.030 [facility] Urobilinogen Auto test strip Ql (U)Ordered By: Dr. Jacobs on 04-10-2023 Urobilinogen Ql (U) Normal mg/dl Normal [facility] Vital signsOrdered By: Dr. Del mackay on 04-10-2023 Oxygen saturation in Blood 84 % 50-70 [facility] pH measurementOrdered By: Dr Jael Jacobs on 04-10-2023 pH (Unsp spec) 7.29 [pH] 7.32-7.42 [facility] Absolute lymphocyte countOrd ered By: Dr. Jacobs on 04-09-2023 Lymphocytes Auto (Unsp spec) [#/Vol] 0.91 10*3/uL 0.83-4.51 [facility] Basophil percentageOrdered B y: Dr. Jacobs on 04-09-2023 Basophils/100 WBC (Bld) 0.2 % 0-[address] [facility] Eosinophils/100 WBC (Bld) 0.4 % 0-5 [facility] Neutrophils (Bld) [#/Vol] 6.8 10*3/uL 2.0-7.7 [facility] Neutrophils/100 WBC (Bld) 85.1 % 47-70 [facility] WBC (Bld) [#/Vol] 8.0 10*3/uL 4.4-11.0 [facility] Blood erythrocytes count (nu mber/volume)Ordered By: Dr. Jacobs on 04-09-2023 RBC (Bld) [#/Vol] 3.87 10*6/uL 4.2-5.4 [facility] Blood hemoglobin measurement (mass/volume)Ordered By: Dr. Jacobs on 04-09-2023 Hemoglobin (Bld) [Mass/Vol] 12.5 g/dL 12.0-15.0 [facility] Blood lymphocytes/100 leukoc ytesOrdered By: Dr. Jacobs on 04-09-2023 Lymphocytes/100 WBC (Bld) 11.3 % 19-41 [facility] Blood monocytes/100 leukocyt esOrdered By: Dr. Jacobs on 04-09-2023 Monocytes/100 WBC (Bld) 1.6 % 0-[address] [facility] Blood platelet mean volumeOr dered By: Dr. Jacobs on 04-09-2023 Platelet mean volume (Bld) [Entitic vol] 10.0 fL 6.2-12.0 [facility] Determination of erythrocyte mean corpuscular volume (MCV)Ordered By: Dr. Jacobs on 04-09-2023 MCV (RBC) [Entitic vol] 99.5 fL 81-[address] [facility] Hematocrit Auto (Bld) [Volum e fraction]Ordered By: Dr. Jacobs on 04-09-2023 Hematocrit (Bld) [Volume fraction] 38.5 % 37-47 [facility] Laboratory - Hematology and Cell countsOrdered By: Dr. Jacobs on 04-09-2023 Erythrocyte distribution width (RBC) [Entitic vol] 47.4 fL 35.1-43.9 [facility] Erythrocyte distribution width (RBC) [Ratio] 13.0 % 11.6-14.6 [facility] Immature granulocytes/100 WBC (Bld) 1.400 % 0.0-0.9 [facility] Comment on above: IG% - Immature Granu locytes (promyelocytes, myelocytes and metamyelocytes) > 1% indicates that a LEFT SHIFT is Present. MCH (RBC) [Entitic mass] 32.3 pg 27.0-32.0 [facility] Nucleated RBC/100 WBC (Bld) [Ratio] 0 % 0-5 [facility] MCHC Auto (RBC) [Mass/Vol]Or dered By: Dr. Jacobs on 04-09-2023 MCHC (RBC) [Mass/Vol] 32.5 g/dL 32-36 [facility] No Panel InformationOrdered By: Dr. Jacobs on 04-09-2023 D-Dimer Quantitative (PE/DVT) < 0.27 FEU/ug/m 0.27-0.49 [facility] Comment on above: NORMAL D-Dimer level (<0.50) indicates no DVT or PE. Platelets bldOrdered By: Dr. Jacobs on 04-09-2023 Platelets (Bld) [#/Vol] 298 10*3/uL 150-450 [facility] Absolute lymphocyte countOrd ered By: Dr. Gaviria on 03-22-2023 Lymphocytes Auto (Unsp spec) [#/Vol] 2.49 10*3/uL 0.83-4.51 [facility] Amorphous sediment detection in urine sediment by light microscopyOrdered By: Dr. Gaviria on 03-22-2023 Amorphous sediment LM Ql (Urine sed) 1+ URATE [facility] Basophil percentageOrdered B y: Dr. Gaviria on 03-22-2023 Basophil percentage 5-10 SEEN /hpf 0-[address] [facility] Basophils/100 WBC (Bld) 0.5 % 0-[address] [facility] Bilirubin [Mass/Vol] 0.30 mg/dL 0.20-1.00 [facility] Comment on above: For patients on eltr ombopag therapy, use of Dimension [place] TBIL is not recommended. Chloride [Moles/Vol] 105 mmol/L 98-107 [facility] Eosinophils/100 WBC (Bld) 2.0 % 0-5 [facility] Glucose [Mass/Vol] 146 mg/dL 74-106 [facility] Comment on above: Fasting Glucose resu lt greater than or equal to 126 mg/dL suggests DIABETES MELLITUS per A.D.A. criteria. Lactate [Moles/Vol] 1.4 mmol/L 0.4-2.0 [facility] Neutrophils (Bld) [#/Vol] 7.1 10*3/uL 2.0-7.7 [facility] Neutrophils/100 WBC (Bld) 64.4 % 47-70 [facility] Potassium [Moles/Vol] 4.4 mmol/L 3.5-5.1 [facility] Protein [Mass/Vol] 7.7 g/dL 6.4-8.2 [facility] Sodium [Moles/Vol] 133 mmol/L 136-145 [facility] WBC (Bld) [#/Vol] 11.0 10*3/uL 4.4-11.0 [facility] Bilirubin Test strip Ql (U)O rdered By: Dr. Gaviria on 03-22-2023 Bilirubin Ql (U) Negative Negative [facility] Blood erythrocytes count (nu mber/volume)Ordered By: Dr. Gaviria on 03-22-2023 RBC (Bld) [#/Vol] 4.25 10*6/uL 4.2-5.4 [facility] Blood hemoglobin measurement (mass/volume)Ordered By: Dr. Gaviria on 03-22-2023 Hemoglobin (Bld) [Mass/Vol] 13.6 g/dL 12.0-15.0 [facility] Blood lymphocytes/100 leukoc ytesOrdered By: Dr. Gaviria on 03-22-2023 Lymphocytes/100 WBC (Bld) 22.7 % 19-41 [facility] Blood monocytes/100 leukocyt esOrdered By: Dr. Gaviria on 03-22-2023 Monocytes/100 WBC (Bld) 9.9 % 0-[address] [facility] Blood platelet mean volumeOr dered By: Dr. Gaviria on 03-22-2023 Platelet mean volume (Bld) [Entitic vol] 9.7 fL 6.2-12.0 [facility] Determination of erythrocyte mean corpuscular volume (MCV)Ordered By: Dr. Gaviria on 03-22-2023 MCV (RBC) [Entitic vol] 97.6 fL 81-[address] [facility] Hematocrit Auto (Bld) [Volum e fraction]Ordered By: Dr. Gaviria on 03-22-2023 Hematocrit (Bld) [Volume fraction] 41.5 % 37-47 [facility] Ketones Test strip Ql (U)Ord ered By: Dr. Gaviria on 03-22-2023 Ketones Ql (U) Negative Negative [facility] Laboratory - Chemistry and C hemistry - challengeOrdered By: Dr. Gaviria on 03-22-2023 ALP [Catalytic activity/Vol] 71 U/L 45-117 [facility] ALT [Catalytic activity/Vol] 33 U/L 13-56 [facility] CO2 [Moles/Vol] 24.0 mmol/L 21.0-32.0 [facility] Globulin (S) [Mass/Vol] 3.7 g/dL 2.2-4.[address] [facility] Urea nitrogen/Creatinine [Mass ratio] 10.8 mg/mg 10-20 [facility] Laboratory - Hematology and Cell countsOrdered By: Dr. Gaviria on 03-22-2023 Erythrocyte distribution width (RBC) [Entitic vol] 46.9 fL 35.1-43.9 [facility] Erythrocyte distribution width (RBC) [Ratio] 13.1 % 11.6-14.6 [facility] Immature granulocytes/100 WBC (Bld) 0.500 % 0.0-0.9 [facility] Comment on above: IG% - Immature Granu locytes (promyelocytes, myelocytes and metamyelocytes) > 1% indicates that a LEFT SHIFT is Present. MCH (RBC) [Entitic mass] 32.0 pg 27.0-32.0 [facility] Nucleated RBC/100 WBC (Bld) [Ratio] 0 % 0-5 [facility] MCHC Auto (RBC) [Mass/Vol]Or dered By: Dr. Gaviria on 03-22-2023 MCHC (RBC) [Mass/Vol] 32.8 g/dL 32-36 [facility] Mucus LM Ql (Urine sed)Order ed By: Dr. Gaviria on 03-22-2023 Mucus Ql (Urine sed) 0 SEEN /hpf [facility] Nitrite Test strip Ql (U)Ord ered By: Dr. Gaviria on 03-22-2023 Nitrite Ql (U) Negative Negative [facility] No Panel InformationOrdered By: Dr. Gaviria on 03-22-2023 Estimated Creatinine Clearance Calc 36.74 ml/min [facility] Estimated GFR (MDRD) Amer 43 mL/min >60 [facility] Comment on above: GFR Calc Estimated GFR (MDRD) Non-Af Amer 35 mL/min >60 [facility] Comment on above: Non- GFR Calc Platelets bldOrdered By: Dr. Gaviria on 03-22-2023 Platelets (Bld) [#/Vol] 316 10*3/uL 150-450 [facility] Protein Test strip Ql (U)Ord ered By: Dr. Gaviria on 03-22-2023 Protein Ql (U) Negative Negative [facility] Serum or plasma albumin alphonso urement (mass/volume)Ordered By: Dr. Gaviria on 03-22-2023 Albumin [Mass/Vol] 4.0 g/dL 3.2-5.0 [facility] Serum or plasma albumin/glob ulin mass ratioOrdered By: Dr. Gaviria on 03-22-2023 Albumin/Globulin [Mass ratio] 1.1 {ratio} 0.9-2.4 [facility] Serum or plasma calcium alphonso urement (mass/volume)Ordered By: Dr. Gaviria on 03-22-2023 Calcium [Mass/Vol] 8.9 mg/dL 8.5-10.1 [facility] Serum or plasma creatinine m easurement (mass/volume)Ordered By: Dr. Gaviria on 03-22-2023 Creatinine [Mass/Vol] 1.67 mg/dL 0.55-1.02 [facility] Comment on above: The validity of the calculated GFR & GFRAA in patients over 70 years has not been determined. Clinical correlation is essential. Serum or plasma urea nitroge n measurement (mass/volume)Ordered By: Dr. Gaviria on 03-22-2023 Urea nitrogen [Mass/Vol] 18 mg/dL 7-18 [facility] Squamous epithelial cells de tection in urine sediment by light microscopyOrdered By: Dr. Gaviria on 03-22-2023 Epithelial cells.squamous LM Ql (Urine sed) 0-5 SEEN /hpf 5-10 [facility] Thin prep Papanicolaou smear with manual screeningOrdered By: Dr. Gaviria on 03-22-2023 Thin prep Papanicolaou smear with manual screening 20 U/L 15-37 [facility] Thin prep Papanicolaou smear with manual screening 4 5-15 [facility] Urine blood detectionOrdered By: Dr. Gaviria on 03-22-2023 RBC Ql (U) Negative Negative [facility] RBC Ql (U) 0 SEEN /hpf 0-5 [facility] Urine clarityOrdered By: Dr. Gaviria on 03-22-2023 Clarity (U) Sl. Cloudy Clear [facility] Urine color determinationOrd ered By: Dr. Gaviria on 03-22-2023 Color (U) Yellow Yellow [facility] Urine glucose detectionOrder ed By: Dr. Gaviria on 03-22-2023 Glucose Ql (U) 1000 mg/dl Normal [facility] Urine leukocyte esterase det ection by dipstickOrdered By: Dr. Gaviria on 03-22-2023 Leukocyte esterase Test strip Ql (U) 100 /ul Negative [facility] Urine pHOrdered By: Dr. Shae ruelas on 03-22-2023 pH (U) 6.5 [pH] 5.0 - 8.0 [facility] Urine sediment bacteria coun t by microscopy (number/high power field)Ordered By: Dr. Gaviria on 03-22-2023 Bacteria LM.HPF (Urine sed) [#/Area] 0 /[HPF] None Seen [facility] Urine specific gravity measu rementOrdered By: Dr. Gaviria on 03-22-2023 Specific gravity (U) [Rel density] 1.005 1.002-1.030 [facility] Urobilinogen Auto test strip Ql (U)Ordered By: Dr. Gaviria on 03-22-2023 Urobilinogen Ql (U) Normal mg/dl Normal [facility] Laboratory - Microbiology an d Antimicrobial susceptibilityon 02-12-2023 SARS-CoV-2 (COVID-19) RNA ALLEY+probe Ql (Unsp spec) Not detected [facility] No Panel Informationon 02-12 Influenza Types A,B Rapid (Clinic) Not detected [facility] Absolute lymphocyte countOrd ered By: Dr. Jacobs on 01-21-2023 Lymphocytes Auto (Unsp spec) [#/Vol] 2.33 10*3/uL 0.83-4.51 [facility] Basophil percentageOrdered B y: Dr. Jacobs on 01-21-2023 Basophils/100 WBC (Bld) 0.5 % 0-[address] [facility] Chloride [Moles/Vol] 103 mmol/L 98-107 [facility] Eosinophils/100 WBC (Bld) 2.6 % 0-5 [facility] Glucose [Mass/Vol] 262 mg/dL 74-106 [facility] Comment on above: Glucose result great er than or equal to 200 mg/dLsuggests DIABETES MELLITUS per A.D.A. criteria. Neutrophils (Bld) [#/Vol] 4.7 10*3/uL 2.0-7.7 [facility] Neutrophils/100 WBC (Bld) 59.7 % 47-70 [facility] Potassium [Moles/Vol] 3.6 mmol/L 3.5-5.1 [facility] Sodium [Moles/Vol] 138 mmol/L 136-145 [facility] WBC (Bld) [#/Vol] 7.9 10*3/uL 4.4-11.0 [facility] Blood erythrocytes count (nu mber/volume)Ordered By: Dr. Jacobs on 01-21-2023 RBC (Bld) [#/Vol] 4.32 10*6/uL 4.2-5.4 [facility] Blood hemoglobin measurement (mass/volume)Ordered By: Dr. Jacobs on 01-21-2023 Hemoglobin (Bld) [Mass/Vol] 13.8 g/dL 12.0-15.0 [facility] Blood lymphocytes/100 leukoc ytesOrdered By: Dr. Jacobs on 01-21-2023 Lymphocytes/100 WBC (Bld) 29.3 % 19-41 [facility] Blood monocytes/100 leukocyt esOrdered By: Dr. Jacobs on 01-21-2023 Monocytes/100 WBC (Bld) 7.6 % 0-[address] [facility] Blood platelet mean volumeOr dered By: Dr. Jacobs on 01-21-2023 Platelet mean volume (Bld) [Entitic vol] 9.8 fL 6.2-12.0 [facility] Determination of erythrocyte mean corpuscular volume (MCV)Ordered By: Dr. Jacobs on 01-21-2023 MCV (RBC) [Entitic vol] 95.8 fL 81-[address] [facility] Hematocrit Auto (Bld) [Volum e fraction]Ordered By: Dr. Jacobs on 01-21-2023 Hematocrit (Bld) [Volume fraction] 41.4 % 37-47 [facility] Laboratory - Chemistry and C hemistry - challengeOrdered By: Dr. Jacobs on 01-21-2023 CO2 [Moles/Vol] 27.0 mmol/L 21.0-32.0 [facility] Urea nitrogen/Creatinine [Mass ratio] 11.8 mg/mg 10-20 [facility] Laboratory - Hematology and Cell countsOrdered By: Dr. Jacbos on 01-21-2023 Erythrocyte distribution width (RBC) [Entitic vol] 44.4 fL 35.1-43.9 [facility] Erythrocyte distribution width (RBC) [Ratio] 12.7 % 11.6-14.6 [facility] Immature granulocytes/100 WBC (Bld) 0.300 % 0.0-0.9 [facility] Comment on above: IG% - Immature Granu locytes (promyelocytes, myelocytes and metamyelocytes) > 1% indicates that a LEFT SHIFT is Present. MCH (RBC) [Entitic mass] 31.9 pg 27.0-32.0 [facility] Nucleated RBC/100 WBC (Bld) [Ratio] 0 % 0-5 [facility] MCHC Auto (RBC) [Mass/Vol]Or dered By: Dr. Jacobs on 01-21-2023 MCHC (RBC) [Mass/Vol] 33.3 g/dL 32-36 [facility] No Panel InformationOrdered By: Dr. Jacobs on 01-21-2023 Troponin I High Sensitivity < 3 pg/mL 3.0-54.0 [facility] Comment on above: Please Note: [place] t Units and Gender Specific Reference Ranges. For more information see Policy Stat Procedure [place] High Sensitivity Troponin (TNIH) and attachments. D-Dimer Quantitative (PE/DVT) < 0.27 FEU/ug/m 0.27-0.49 [facility] Comment on above: NORMAL D-Dimer level (<0.50) indicates no DVT or PE. Estimated Creatinine Clearance Calc 65.97 ml/min [facility] Estimated GFR (MDRD) Amer 83 mL/min >60 [facility] Comment on above: GFR Calc Estimated GFR (MDRD) Non-Af Amer 69 mL/min >60 [facility] Comment on above: Non- GFR Calc Platelets bldOrdered By: Dr. Jacobs on 01-21-2023 Platelets (Bld) [#/Vol] 314 10*3/uL 150-450 [facility] Serum or plasma calcium alphonso urement (mass/volume)Ordered By: Dr. Jacobs on 01-21-2023 Calcium [Mass/Vol] 8.9 mg/dL 8.5-10.1 [facility] Serum or plasma creatinine m easurement (mass/volume)Ordered By: Dr. Jacobs on 01-21-2023 Creatinine [Mass/Vol] 0.93 mg/dL 0.55-1.02 [facility] Comment on above: The validity of the calculated GFR & GFRAA in patients over 70 years has not been determined. Clinical correlation is essential. Serum or plasma urea nitroge n measurement (mass/volume)Ordered By: Dr. Jacobs on 01-21-2023 Urea nitrogen [Mass/Vol] 11 mg/dL 7-18 [facility] Thin prep Papanicolaou smear with manual screeningOrdered By: Dr. Jacobs on 01-21-2023 Thin prep Papanicolaou smear with manual screening 8 5-15 [facility] Absolute lymphocyte countOrd ered By: Dr. Kay on 11-19-2022 Lymphocytes Auto (Unsp spec) [#/Vol] 2.69 10*3/uL 0.83-4.51 [facility] Basophil percentageOrdered B y: Dr. Kay on 11-19-2022 Basophils/100 WBC (Bld) 0.4 % 0-1 [facility] Chloride [Moles/Vol] 104 mmol/L 98-107 [facility] Eosinophils/100 WBC (Bld) 2.4 % 0-5 [facility] Glucose [Mass/Vol] 194 mg/dL 74-106 [facility] Comment on above: Fasting Glucose resu lt greater than or equal to 126 mg/dL suggests DIABETES MELLITUS per A.D.A. criteria. Neutrophils (Bld) [#/Vol] 1.7 10*3/uL 2.0-7.7 [facility] Neutrophils/100 WBC (Bld) 33.7 % 47-70 [facility] Potassium [Moles/Vol] 3.4 mmol/L 3.5-5.1 [facility] Sodium [Moles/Vol] 138 mmol/L 136-145 [facility] WBC (Bld) [#/Vol] 5.1 10*3/uL 4.4-11.0 [facility] Basophil percentageOrdered B y: Dr. Piña on 11-19-2022 Cholesterol [Mass/Vol] 144 mg/dL <200 [facility] Comment on above: <200 mg/dL Desirable 200-240 mg/dL Borderline >240 mg/dL High Risk Triglyceride [Mass/Vol] 227 mg/dL <[address] [facility] Comment on above: The drugs N-Acetylcy steine and Metamizole may falsely depress this assay.Serum Triglycerides Reference Interval Normal <150 mg/dL Borderline high 150 - 199 mg/dL High 200 - 499 mg/dL Very High > or = 500 mg/dL Beta hCG serum qualOrdered B y: Dr. Piña on 11-19-2022 Beta HCG ( test) Ql Negative [facility] Blood erythrocytes count (nu mber/volume)Ordered By: Dr. Kay on 11-19-2022 RBC (Bld) [#/Vol] 3.74 10*6/uL 4.2-5.4 [facility] Blood hemoglobin measurement (mass/volume)Ordered By: Dr. Kay on 11-19-2022 Hemoglobin (Bld) [Mass/Vol] 12.0 g/dL 12.0-15.0 [facility] Blood lymphocytes/100 leukoc ytesOrdered By: Dr. Kay on 11-19-2022 Lymphocytes/100 WBC (Bld) 52.7 % 19-41 [facility] Blood monocytes/100 leukocyt esOrdered By: Dr. Kay on 11-19-2022 Monocytes/100 WBC (Bld) 10.6 % 0-[address] [facility] [facility] Blood platelet mean volumeOr dered By: Dr. Kay on 11-19-2022 Platelet mean volume (Bld) [Entitic vol] 9.5 fL 6.2-12.0 [facility] Determination of erythrocyte mean corpuscular volume (MCV)Ordered By: Dr. Kay on 11-19-2022 MCV (RBC) [Entitic vol] 92.2 fL 81-[address] [facility] Glucose Glucometer (BldC) [M ass/Vol]Ordered By: Dr. Kay on 11-19-2022 Glucose [Mass/Vol] 295 mg/dL 74-106 [facility] Comment on above: MANAGEMENT OF PATIEN T CARE PER NURSING PROTOCOL Hematocrit Auto (Bld) [Volum e fraction]Ordered By: Dr. Kay on 11-19-2022 Hematocrit (Bld) [Volume fraction] 34.5 % 37-47 [facility] Laboratory - Chemistry and C hemistry - challengeOrdered By: Dr. Kay on 11-19-2022 CO2 [Moles/Vol] 28.0 mmol/L 21.0-32.0 [facility] Urea nitrogen/Creatinine [Mass ratio] 14.3 mg/mg 10-20 [facility] Laboratory - CoagulationOrde red By: Dr. Tavares on 11-19-2022 aPTT Coag (Bld) [Time] 63.5 s 24.1-36.2 [facility] Laboratory - Hematology and Cell countsOrdered By: Dr. Kay on 11-19-2022 Erythrocyte distribution width (RBC) [Entitic vol] 41.3 fL 35.1-43.9 [facility] Erythrocyte distribution width (RBC) [Ratio] 12.2 % 11.6-14.6 [facility] Immature granulocytes/100 WBC (Bld) 0.200 % 0.0-0.9 [facility] Comment on above: IG% - Immature Granu locytes (promyelocytes, myelocytes and metamyelocytes) > 1% indicates that a LEFT SHIFT is Present. MCH (RBC) [Entitic mass] 32.1 pg 27.0-32.0 [facility] Nucleated RBC/100 WBC (Bld) [Ratio] 0 % 0-5 [facility] MCHC Auto (RBC) [Mass/Vol]Or dered By: Dr. Kay on 11-19-2022 MCHC (RBC) [Mass/Vol] 34.8 g/dL 32-36 [facility] No Panel InformationOrdered By: Dr. Kay on 11-19-2022 Estimated Creatinine Clearance Calc 97.38 ml/min [facility] Estimated GFR (MDRD) Amer 131 mL/min >60 [facility] Comment on above: GFR Calc Estimated GFR (MDRD) Non-Af Amer 108 mL/min >60 [facility] Comment on above: Non- GFR Calc No Panel InformationOrdered By: Dr. Piña on 11-19-2022 Troponin I High Sensitivity 307 pg/mL 3.0-54.0 [facility] Comment on above: Critical Result(s) C alled at: 04:53:08 11/19/2022 by: Kannan BRAUN RN ([facility]) Results read back by same. Please Note: New Test Units and Gender Specific Reference Ranges. For more information see Policy Stat Procedure [place] High Sensitivity Troponin (TNIH) and attachments. Platelets bldOrdered By: Dr. Kay on 11-19-2022 Platelets (Bld) [#/Vol] 194 10*3/uL 150-450 [facility] Serum or plasma calcium alphonso urement (mass/volume)Ordered By: Dr. Kay on 11-19-2022 Calcium [Mass/Vol] 7.7 mg/dL 8.5-10.1 [facility] Serum or plasma cholesterol in HDL measurement (mass/volume)Ordered By: Dr. Piña on 11-19-2022 Cholesterol in HDL [Mass/Vol] 42 mg/dL >40 [facility] Comment on above: The drugs N-Acetylcy steine and Metamizole may falsely depress this assay. Reference Range HDL <40 mg/dL Low HDL Cholesterol HDL >or= 60 mg/dL High HDL Cholesterol Serum or plasma cholesterol in VLDL measurement (mass/volume)Ordered By: Dr. Piña on 11-19-2022 Cholesterol in VLDL [Mass/Vol] 45 mg/dL 5-40 [facility] Serum or plasma creatinine m easurement (mass/volume)Ordered By: Dr. Kay on 11-19-2022 Creatinine [Mass/Vol] 0.63 mg/dL 0.55-1.02 [facility] Comment on above: The validity of the calculated GFR & GFRAA in patients over 70 years has not been determined. Clinical correlation is essential. Serum or plasma low density lipoprotein (LDL) cholesterol measurement (mass/volume)Ordered By: Dr. Piña on 11-19-2022 Cholesterol in LDL [Mass/Vol] 57 mg/dL 0-130 [facility] Serum or plasma urea nitroge n measurement (mass/volume)Ordered By: Dr. Kay on 11-19-2022 Urea nitrogen [Mass/Vol] 9 mg/dL 7-18 [facility] Thin prep Papanicolaou smear with manual screeningOrdered By: Dr. Kay on 11-19-2022 Thin prep Papanicolaou smear with manual screening 6 5-15 [facility] Basophil percentageOrdered B y: Dr. Piña on 11-18-2022 Bilirubin [Mass/Vol] 0.50 mg/dL 0.20-1.00 [facility] Comment on above: For patients on eltr ombopag therapy, use of Dimension [place] TBIL is not recommended. Protein [Mass/Vol] 7.4 g/dL 6.4-8.2 [facility] Direct bilirubinOrdered By: Dr. Piña on 11-18-2022 Bilirubin.direct [Mass/Vol] 0.13 mg/dL 0.00-0.30 [facility] INR in Blood by Coagulation assayOrdered By: Dr. Tavares on 11-18-2022 INR Coag (Bld) [Relative time] 1.0 {INR} [facility] Laboratory - Chemistry and C hemistry - challengeOrdered By: Dr. Piña on 11-18-2022 ALP [Catalytic activity/Vol] 82 U/L 45-117 [facility] ALT [Catalytic activity/Vol] 33 U/L 13-56 [facility] Globulin (S) [Mass/Vol] 4.0 g/dL 2.2-4.[address] [facility] Laboratory - CoagulationOrde red By: Dr. Tavares on 11-18-2022 PT Coag (PPP) [Time] 12.9 s 11.7-14.9 [facility] No Panel InformationOrdered By: Dr. Tavares on 11-18-2022 D-Dimer Quantitative (PE/DVT) 0.40 FEU/ug/m 0.27-0.49 [facility] Comment on above: NORMAL D-Dimer level (<0.50) indicates no DVT or PE. Serum or plasma albumin alphonso urement (mass/volume)Ordered By: Dr. Piña on 11-18-2022 Albumin [Mass/Vol] 3.4 g/dL 3.2-5.0 [facility] Thin prep Papanicolaou smear with manual screeningOrdered By: Dr. Piña on 11-18-2022 Thin prep Papanicolaou smear with manual screening 26 U/L 15-37 [facility] Absolute lymphocyte counton 09-05-2022 Lymphocytes Auto (Unsp spec) [#/Vol] 3.03 10*3/uL 0.83-4.51 [facility] Work Phone: Basophil percentageon 2021 Basophils/100 WBC (Bld) 0.5 % 0-[address] [facility] Work Phone: Chloride [Moles/Vol] 105 mmol/L 98-107 [facility] Work Phone: Eosinophils/100 WBC (Bld) 3.3 % 0-5 [facility] Work Phone: Glucose [Mass/Vol] 246 mg/dL 74-106 [facility] Work Phone: Comment on above: Glucose result great er than or equal to 200 mg/dLsuggests DIABETES MELLITUS per A.D.A. criteria. Neutrophils (Bld) [#/Vol] 3.8 10*3/uL 2.0-7.7 [facility] Work Phone: [phone] Neutrophils/100 WBC (Bld) 48.3 % 47-70 [facility] Work Phone: Potassium [Moles/Vol] 3.6 mmol/L 3.5-5.1 [facility] Work Phone: Sodium [Moles/Vol] 142 mmol/L 136-145 [facility] Work Phone: WBC (Bld) [#/Vol] 7.8 10*3/uL 4.4-11.0 [facility] Work Phone: Blood erythrocytes count (nu mber/volume)on 09-05-2022 RBC (Bld) [#/Vol] 4.17 10*6/uL 4.2-5.4 [facility] Work Phone: Blood hemoglobin measurement (mass/volume)on 09-05-2022 Hemoglobin (Bld) [Mass/Vol] 13.1 g/dL 12.0-15.0 [facility] Work Phone: Blood lymphocytes/100 leukoc yteson 09-05-2022 Lymphocytes/100 WBC (Bld) 39.0 % 19-41 [facility] Work Phone: Blood monocytes/100 leukocyt eson 09-05-2022 Monocytes/100 WBC (Bld) 8.5 % 0-[address] [facility] Work Phone: Blood platelet mean volumeon 09-05-2022 Platelet mean volume (Bld) [Entitic vol] 9.6 fL 6.2-12.0 [facility] Work Phone: Determination of erythrocyte mean corpuscular volume (MCV)on 09-05-2022 MCV (RBC) [Entitic vol] 92.1 fL 81-[address] [facility] Work Phone: Hematocrit Auto (Bld) [Volum e fraction]on 09-05-2022 Hematocrit (Bld) [Volume fraction] 38.4 % 37-47 [facility] Work Phone: Laboratory - Chemistry and C hemistry - challengeon 09-05-2022 CO2 [Moles/Vol] 27.0 mmol/L 21.0-32.0 [facility] Work Phone: Urea nitrogen/Creatinine [Mass ratio] 16.7 mg/mg 10-20 [facility] Work Phone: Laboratory - Hematology and Cell countson 09-05-2022 Erythrocyte distribution width (RBC) [Entitic vol] 42.3 fL 35.1-43.9 [facility] Work Phone: Erythrocyte distribution width (RBC) [Ratio] 12.7 % 11.6-14.6 [facility] Work Phone: Immature granulocytes/100 WBC (Bld) 0.400 % 0.0-0.9 [facility] Work Phone: Comment on above: IG% - Immature Granu locytes (promyelocytes, myelocytes and metamyelocytes) > 1% indicates that a LEFT SHIFT is Present. MCH (RBC) [Entitic mass] 31.4 pg 27.0-32.0 [facility] Work Phone: Nucleated RBC/100 WBC (Bld) [Ratio] 0 % 0-5 [facility] Work Phone: MCHC Auto (RBC) [Mass/Vol]on 09-05-2022 MCHC (RBC) [Mass/Vol] 34.1 g/dL 32-36 [facility] Work Phone: No Panel Informationon 09-05 Estimated Creatinine Clearance Calc 78.65 ml/min [facility] Work Phone: Estimated GFR (MDRD) Amer 103 mL/min >60 [facility] Work Phone: Comment on above: GFR Calc Estimated GFR (MDRD) Non-Af Amer 85 mL/min >60 [facility] Work Phone: Comment on above: Non- GFR Calc Ethyl Alcohol Level 237.0 mg/dL [facility] Work Phone: Comment on above: The serum:whole bloo d ethanol ratio is approximately 1.14and varies slightly with hematocrit. Medical Alcohol reference interval and critical value innon-tolerant individuals; 50 - 100 Impairment 100 Intoxication 100 - 250 Severe Poisoning 250 - 400 Deep/possible fatal coma Platelets bldon 09-05-2022 Platelets (Bld) [#/Vol] 318 10*3/uL 150-450 [facility] Work Phone: Serum or plasma calcium alphonso urement (mass/volume)on 09-05-2022 Calcium [Mass/Vol] 8.8 mg/dL 8.5-10.1 [facility] Work Phone: Serum or plasma creatinine m easurement (mass/volume)on 09-05-2022 Creatinine [Mass/Vol] 0.78 mg/dL 0.55-1.02 [facility] Work Phone: Comment on above: The validity of the calculated GFR & GFRAA in patients over 70 years has not been determined. Clinical correlation is essential. Serum or plasma urea nitroge n measurement (mass/volume)on 09-05-2022 Urea nitrogen [Mass/Vol] 13 mg/dL 7-18 [facility] Work Phone: Thin prep Papanicolaou smear with manual screeningon 09-05-2022 Thin prep Papanicolaou smear with manual screening 15 [facility] Work Phone: XR HIP GENERAL 3V PELV/AP/LA T LEFTon 07-21-2022 [facility] XR Pelvis and Hip - left AP and Lateral frogon 07-21-2022 IMPRESSION: Negative pelvis and left hip. Strategic Planner: PAM Transcribe Date/Time: Jul 21 2022 7:27P Dictated by : BETINA MAGANA MD This examination was interpreted and the report reviewed and electronically signed by: BETINA MAGANA MD on Jul 21 2022 7:29PM [facility] DIVISION OF RADIOLOGY * * *Final [...] fracture or dislocation. DIVISION OF RADIOLOGY [facility] * * *Final Report* [...] IMPRESSION IMPRESSION: Negative pelvis and left hip. Strategic Planner: PSCB Transcribe Date/Time: Jul 21 2022 7:27P Dictated by : BETINA MAGANA MD This examination was interpreted and the report reviewed and electronically signed by: BETINA MAGANA MD on Jul 21 2022 7:29PM EST [facility] Radiology [facility] (narrative) [facility] [place] [facility] Pelvis and Hip - left AP and Lateral frogOrdered By: Ccf Provider on 07-21-2022 [facility] Laboratory - Microbiology an d Antimicrobial susceptibilityon 05-31-2022 SARS-CoV-2 (COVID-19) RNA ALLEY+probe Ql (Unsp spec) Not detected [facility] Work Phone: Absolute lymphocyte counton 02-22-2022 Lymphocytes Auto (Unsp spec) [#/Vol] 2.29 10*3/uL 0.83-4.51 [facility] Work Phone: Basophil percentageon 2021 Basophils/100 WBC (Bld) 0.6 % 0-[address] [facility] Work Phone: Chloride [Moles/Vol] 103 mmol/L 98-107 [facility] Work Phone: Eosinophils/100 WBC (Bld) 4.7 % 0-5 [facility] Work Phone: Glucose [Mass/Vol] 207 mg/dL 74-106 [facility] Work Phone: [phone] Comment on above: Glucose result great er than or equal to 200 mg/dLsuggests DIABETES MELLITUS per A.D.A. criteria. Neutrophils (Bld) [#/Vol] 3.2 10*3/uL 2.0-7.7 [facility] Work Phone: Neutrophils/100 WBC (Bld) 49.0 % 47-70 [facility] Work Phone: Potassium [Moles/Vol] 3.6 mmol/L 3.5-5.1 [facility] Work Phone: Sodium [Moles/Vol] 135 mmol/L 136-145 [facility] Work Phone: WBC (Bld) [#/Vol] 6.6 10*3/uL 4.4-11.0 [facility] Work Phone: Blood erythrocytes count (nu mber/volume)on 02-22-2022 RBC (Bld) [#/Vol] 4.50 10*6[facility]uL [facility]2-5.4 [facility]: Blood hemoglobin measurement (mass/volume)on 02-22-2022 Hemoglobin (Bld) [Mass/Vol] 13.8 g/dL 12.0-15.0 [facility] Work Phone: [phone] Blood lymphocytes/100 leukoc yteson 02-22-2022 Lymphocytes/100 WBC (Bld) 34.9 % 19-41 [facility] Work Phone: [phone] Blood monocytes/100 leukocyt eson 02-22-2022 Monocytes/100 WBC (Bld) 10.2 % 0-[address] [facility] Work Phone: Blood platelet mean volumeon 02-22-2022 Platelet mean volume (Bld) [Entitic vol] 10.3 fL 6.2-12.0 [facility] Work Phone: Determination of erythrocyte mean corpuscular volume (MCV)on 02-22-2022 MCV (RBC) [Entitic vol] 88.9 fL 81-[address] [facility] Work Phone: [phone] Hematocrit Auto (Bld) [Volum e fraction]on 02-22-2022 Hematocrit (Bld) [Volume fraction] 40.0 % 37-47 [facility] Work Phone: [phone] Laboratory - Chemistry and C hemistry - challengeon 02-22-2022 CO2 [Moles/Vol] 27.0 mmol/L 21.0-32.0 [facility] Work Phone: Urea nitrogen/Creatinine [Mass ratio] 12.3 mg/mg 10-20 [facility] Work Phone: Laboratory - Hematology and Cell countson 02-22-2022 Erythrocyte distribution width (RBC) [Entitic vol] 39.8 fL 35.1-43.9 [facility] Work Phone: Erythrocyte distribution width (RBC) [Ratio] 12.2 % 11.6-14.6 [facility] Work Phone: Immature granulocytes/100 WBC (Bld) 0.600 % 0.0-0.9 [facility] Work Phone: Comment on above: IG% - Immature Granu locytes (promyelocytes, myelocytes and metamyelocytes) > 1% indicates that a LEFT SHIFT is Present. MCH (RBC) [Entitic mass] 30.7 pg 27.0-32.0 [facility] Work Phone: Nucleated RBC/100 WBC (Bld) [Ratio] 0 % 0-5 [facility] Work Phone: MCHC Auto (RBC) [Mass/Vol]on 02-22-2022 MCHC (RBC) [Mass/Vol] 34.5 g/dL 32-36 [facility] Work Phone: No Panel Informationon 02-22 D-Dimer Quantitative (PE/DVT) < 0.27 FEU/ug/m 0.27-0.49 [facility] Work Phone: Comment on above: NORMAL D-Dimer level (<0.50) indicates no DVT or PE. Estimated Creatinine Clearance Calc 84.92 ml/min [facility] Work Phone: Estimated GFR (MDRD) Amer 111 mL/min >60 [facility] Work Phone: Comment on above: GFR Calc Estimated GFR (MDRD) Non-Af Amer 91 mL/min >60 [facility] Work Phone: Comment on above: Non- GFR Calc Troponin I High Sensitivity < 3 pg/mL 3.0-54.0 [facility] Work Phone: Comment on above: Please Note: New [place] t Units and Gender Specific Reference Ranges. For more information see Policy Stat Procedure [place] High Sensitivity Troponin (TNIH) and attachments. Platelets bldon 02-22-2022 Platelets (Bld) [#/Vol] 311 10*3/uL 150-450 [facility] Work Phone: Serum or plasma calcium alphonso urement (mass/volume)on 02-22-2022 Calcium [Mass/Vol] 9.4 mg/dL 8.5-10.1 [facility] Work Phone: Serum or plasma creatinine m easurement (mass/volume)on 02-22-2022 Creatinine [Mass/Vol] 0.73 mg/dL 0.55-1.02 [facility] Work Phone: Comment on above: The validity of the calculated GFR & GFRAA in patients over 70 years has not been determined. Clinical correlation is essential. Serum or plasma urea nitroge n measurement (mass/volume)on 02-22-2022 Urea nitrogen [Mass/Vol] 9 mg/dL 7-18 [facility] Work Phone: Thin prep Papanicolaou smear with manual screeningon 02-22-2022 Thin prep Papanicolaou smear with manual screening 5 5-15 [facility] Work Phone: ALCOHOLon 06-10-2021 ALCOHOL Canceled Normal [facility] Comment on above: Order Comment: TEST ALCOHOL WAS CANCELLED, 06/10/2021 20:44 Result Comment: FOR MEDICAL USE ONLY. Performed By: #### A #### [place] [id number] [place] [id number] Provider Note - ED v2on 05-29 Provider [...] made to minimize errors. Minor errors in accounting professional may be present. Please call if questions.. [...] documented data. SIGNIFICANT EVENTS: No documented data. GAG WRITER: Is : no(1) Is : no(1) RESULTS/VITAL [...] Referenced From Triage - ED 10-Jun-2021 20:27 [facility] Triage - EDon 06-10-2021 Triage - [...] BMI (kg/m2): 27.531 Calculated BSA (m2) 1.81 Jamul Coma Scale: Best Eye Response: (E4) spontaneous [...] Last Updated: 10-Jun-2021 20:30 by Rocky Hebert (RN) [facility] Vital Signs Date Time Vital Sign Value Performing Clinician Facility 07-20-2025 13:05-0400 Heart rate 79 /min Abisai Haley MD Work Phone: [phone] [address] 07-20-2025 13:05-0400 Respiratory rate 16 /min Abisai Haley MD Work Phone: [phone] [place] [address] 07-20-2025 07:27-0400 Inhaled oxygen flow rate 2 L/min Abisai Haley MD Work Phone: [phone] [place] [address] 07-20-2025 07:27-0400 SaO2% (BldA) [Mass fraction] 94 % Abisai Haley MD Work Phone: [phone] [place] [address] 07-20-2025 03:33-0400 Body temperature 98.7 [degF] Abisai Haley MD Work Phone: [phone] [address] 07-20-2025 03:33-0400 Diastolic blood pressure 69 mm[Hg] Abisai Haley MD Work Phone: [phone] [place] [address] 07-20-2025 03:33-0400 Systolic blood pressure 116 mm[Hg] Abisai Haley MD Work Phone: [phone] [address] 07-20-2025 02:08-0400 Body mass index (BMI) [Ratio] 24.1 kg/m2 Abisai Haley MD Work Phone: [phone] [address] 07-20-2025 02:08-0400 Body weight 64.1 kg Abisai Haley MD Work Phone: [phone] [address] 07-18-2025 15:17-0400 Body height 162.56 cm Abisai Haley MD Work Phone: [phone] [place] [address] 07-17-2025 13:12-0400 Body temperature 98.4 [degF] Abisai Haley MD Work Phone: [facility] 07-17-2025 13:12-0400 Diastolic blood pressure 97 mm[Hg] Abisai Haley MD Work Phone: [facility] 07-17-2025 13:12-0400 Heart rate 88 /min Abisai Haley MD Work Phone: [facility] 07-17-2025 13:12-0400 Respiratory rate 16 /min Abisai Haley MD Work Phone: [facility] 07-17-2025 13:12-0400 SaO2% (BldA) [Mass fraction] 99 % Abisai Haley MD Work Phone: [facility] 07-17-2025 13:12-0400 Systolic blood pressure 181 mm[Hg] Abisai Haley MD Work Phone: [facility] 07-17-2025 10:14-0400 Body height 162.56 cm Abisai Haley MD Work Phone: [facility] 07-17-2025 10:14-0400 Body mass index (BMI) [Ratio] 20.7 kg/m2 Abisai Haley MD Work Phone: [facility] 07-17-2025 10:14-0400 Body weight 54.93 kg Abisai Haley MD Work Phone: [facility] 05-28-2025 13:43-0400 Body temperature 98 [degF] Abisai Haley MD Work Phone: [facility] 05-28-2025 13:43-0400 Diastolic blood pressure 77 mm[Hg] Abisai Haley MD Work Phone: [facility] 05-28-2025 13:43-0400 Heart rate 83 /min Abisai Haley MD Work Phone: [facility] 05-28-2025 13:43-0400 Respiratory rate 16 /min Abisai Haley MD Work Phone: [facility] 05-28-2025 13:43-0400 SaO2% (BldA) [Mass fraction] 96 % Abisai Haley MD Work Phone: [facility] 05-28-2025 13:43-0400 Systolic blood pressure 117 mm[Hg] Abisai Haley MD Work Phone: [facility] 05-27-2025 08:08-0400 Inhaled oxygen flow rate 2 L/min Abisai Haley MD Work Phone: [facility] 05-25-2025 02:53-0400 Body height 162.56 cm Abisai Haley MD Work Phone: [facility] 05-25-2025 02:53-0400 Body mass index (BMI) [Ratio] 21.4 kg/m2 Abisai Haley MD Work Phone: [facility] 05-25-2025 02:53-0400 Body weight 56.7 kg Abisai Haley MD Work Phone: [facility] 05-25-2025 02:24-0400 Respiratory rate 16 /min Abisai Haley MD Work Phone: [facility] 05-25-2025 02:24-0400 SaO2% (BldA) [Mass fraction] 96 % Abisai Haley MD Work Phone: [facility] 05-25-2025 00:56-0400 Body temperature 98.3 [degF] Abisai Haley MD Work Phone: [facility] 05-25-2025 00:56-0400 Diastolic blood pressure 63 mm[Hg] Abisai Haley MD Work Phone: [facility] 05-25-2025 00:56-0400 Heart rate 99 /min Abisai Haley MD Work Phone: [facility] 05-25-2025 00:56-0400 Systolic blood pressure 141 mm[Hg] Abisai Haley MD Work Phone: [facility] 05-24-2025 23:09-0400 Body height 162.56 cm Abisai Haley MD Work Phone: [facility] 05-24-2025 23:09-0400 Body mass index (BMI) [Ratio] 21.7 kg/m2 Abisai Haley MD Work Phone: [facility] 05-24-2025 23:09-0400 Body weight 57.4 kg Abisai Haley MD Work Phone: [facility] 05-06-2025 11:28-0400 Body temperature 97.9 [degF] Abisai Haley MD Work Phone: [facility] 05-06-2025 11:28-0400 Diastolic blood pressure 80 mm[Hg] Abisai Haley MD Work Phone: [facility] 05-06-2025 11:28-0400 Heart rate 75 /min Abisai Haley MD Work Phone: [facility] 05-06-2025 11:28-0400 Respiratory rate 16 /min Abisai Haley MD Work Phone: [facility] 05-06-2025 11:28-0400 SaO2% (BldA) [Mass fraction] 92 % Abisai Haley MD Work Phone: [facility] 05-06-2025 11:28-0400 Systolic blood pressure 125 mm[Hg] Abisai Haley MD Work Phone: [facility] 05-06-2025 02:33-0400 Inhaled oxygen concentration 21 % Abisai Haley MD Work Phone: [facility] 05-05-2025 20:11-0400 Inhaled oxygen flow rate 2 L/min Abisai Haley MD Work Phone: [facility] 05-04-2025 11:23-0400 Body height 162.56 cm Abisai Haley MD Work Phone: [facility] 05-04-2025 11:23-0400 Body weight 59.5 kg Abisai Haley MD Work Phone: [facility] 04-26-2025 18:15-0400 Body mass index (BMI) [Ratio] 22.5 kg/m2 Abisai Haley MD Work Phone: [facility] 04-26-2025 17:00-0400 Diastolic blood pressure 86 mm[Hg] Abisai Haley MD Work Phone: [facility] 04-26-2025 17:00-0400 Heart rate 90 /min Abisai Haley MD Work Phone: [facility] 04-26-2025 17:00-0400 Respiratory rate 29 /min Abisai Haley MD Work Phone: [facility] 04-26-2025 17:00-0400 SaO2% (BldA) [Mass fraction] 95 % Abisai Haley MD Work Phone: [facility] 04-26-2025 17:00-0400 Systolic blood pressure 169 mm[Hg] Abisai Haley MD Work Phone: [facility] 04-26-2025 16:19-0400 Body temperature 98.1 [degF] Abisai Haley MD Work Phone: [facility] 04-26-2025 13:42-0400 Body height 162.56 cm Abisai Haley MD Work Phone: [facility] 04-26-2025 13:42-0400 Body mass index (BMI) [Ratio] 22.3 kg/m2 Abisai Haley MD Work Phone: [facility] 04-26-2025 13:42-0400 Body weight 58.96 kg Abisai Haley MD Work Phone: [facility] 04-12-2025 00:24-0400 Body temperature 98 [degF] Abisai Haley MD Work Phone: [facility] 04-12-2025 00:24-0400 Diastolic blood pressure 66 mm[Hg] Abisai Haley MD Work Phone: [place] [address]-15-2025 00:24-0400 Heart rate 78 /min Abisai Haley MD Work Phone: 4(729)906-514793 [place] [address] 04-12-2025 00:24-0400 Respiratory rate 16 /min Abisai Haley MD Work Phone: 2(986)846-142693 [place] [address] 04-12-2025 00:24-0400 SaO2% (BldA) [Mass fraction] 100 % Abisai Haley MD Work Phone: 0(560)166-624693 [place] [address] 04-12-2025 00:24-0400 Systolic blood pressure 125 mm[Hg] Abisai Haley MD Work Phone: 0(822)977-135393 [place] [address] 04-11-2025 23:20-0400 Inhaled oxygen flow rate 2 L/min Abisai Haley MD Work Phone: 6(409)465-436193 [place] [address] 04-11-2025 21:46-0400 Body mass index (BMI) [Ratio] 24.4 kg/m2 Abisai Haley MD Work Phone: 5(373)214-704493 [place] [address] 04-11-2025 21:46-0400 Body weight 64.6 kg Absiai Haley MD Work Phone: 5(730)606-957993 [place] [address] 04-11-2025 21:42-0400 Body height 162.56 cm Abisai Haley MD Work Phone: 1(140)126-294193 [place] [address] 04-04-2025 17:00-0400 Heart rate 97 /min Abisai Haley MD Work Phone: 5(838)294-728893 [place] [address] 04-04-2025 17:00-0400 Respiratory rate 25 /min Abisai Haley MD Work Phone: 1(586)687-457093 [place] [address] 04-04-2025 16:03-0400 Body temperature 98.4 [degF] Abisai Haley MD Work Phone: 8(804)844-474793 [place] [address] 04-04-2025 16:03-0400 Diastolic blood pressure 88 mm[Hg] Abisai Haley MD Work Phone: 1(076)771-845593 [place] [address] 04-04-2025 16:03-0400 SaO2% (BldA) [Mass fraction] 97 % Abisai Haley MD Work Phone: [facility] 04-04-2025 16:03-0400 Systolic blood pressure 157 mm[Hg] Abisai Haley MD Work Phone: [facility] 04-04-2025 11:51-0400 Body mass index (BMI) [Ratio] 25.1 kg/m2 Abisai Haley MD Work Phone: [facility] 04-04-2025 11:51-0400 Body weight 66.4 kg Abisai Haley MD Work Phone: [facility] 04-04-2025 10:24-0400 Body height 162.56 cm Abisai Haley MD Work Phone: [facility] 04-22-2024 13:48-0400 Body mass index (BMI) [Ratio] 29.6 kg/m2 Aretha Praisler-Wood SENIOR INFORMATICA ETL DEVELOPER.[employer] Work Phone: [facility] 04-22-2024 13:48-0400 Body temperature 97.39 [degF] Aretha Praisler-Wood SENIOR INFORMATICA ETL DEVELOPER.[employer] Work Phone: [facility] 04-22-2024 13:48-0400 Body weight 75.8 kg Aretha Praisler-Wood SENIOR INFORMATICA ETL DEVELOPER.[employer] Work Phone: [facility] 04-22-2024 13:48-0400 Diastolic blood pressure 84 mm[Hg] Aretha Praisler-Wood SENIOR INFORMATICA ETL DEVELOPER.[employer] Work Phone: [facility] 04-22-2024 13:48-0400 Heart rate 115 /min Aretha Praisler-Wood SENIOR INFORMATICA ETL DEVELOPER.[employer] Work Phone: [facility] 04-22-2024 13:48-0400 Respiratory rate 20 /min Aretha Praisler-Wood SENIOR INFORMATICA ETL DEVELOPER.[employer] Work Phone: [facility] 04-22-2024 13:48-0400 SaO2% (BldA) [Mass fraction] 98 % Aretha Praisler-Wood SENIOR INFORMATICA ETL DEVELOPER.[employer] Work Phone: [facility] 04-22-2024 13:48-0400 Systolic blood pressure 120 mm[Hg] Aretha Chandu [employer]IG[employer]SDRAFTER [employer] Work Phone: [facility] 03-22-2024 07:08-0400 Body temperature 97.7 [degF] DO Milana Jose Work Phone: [facility] 03-22-2024 07:08-0400 Diastolic blood pressure 84 mm[Hg] DO Milana Jose Work Phone: [facility] 03-22-2024 07:08-0400 Heart rate 102 /min DO Milana Jose Work Phone: [facility] 03-22-2024 07:08-0400 Respiratory rate 17 /min DO Milana Ojse Work Phone: [facility] 03-22-2024 07:08-0400 SaO2% (BldA) [Mass fraction] 95 % DO Milana Jose Work Phone: [facility] 03-22-2024 07:08-0400 Systolic blood pressure 134 mm[Hg] DO Milana Jose Work Phone: [facility] 01-24-2024 21:30-0500 Body temperature 96.9 [degF] DO Milana Jose Work Phone: [facility] 01-24-2024 21:30-0500 Diastolic blood pressure 61 mm[Hg] DO Milana Jose Work Phone: [facility] 01-24-2024 21:30-0500 Heart rate 96 /min DO Milana Jose Work Phone: [facility] 01-24-2024 21:30-0500 Respiratory rate 16 /min DO Milana Jose Work Phone: [facility] 01-24-2024 21:30-0500 SaO2% (BldA) [Mass fraction] 98 % DO Milana Jose Work Phone: [facility] 01-24-2024 21:30-0500 Systolic blood pressure 149 mm[Hg] DO Milana Jose Work Phone: [facility] 01-24-2024 21:25-0500 Body mass index (BMI) [Ratio] 28 kg/m2 DO Milana Jose Work Phone: [facility] 01-24-2024 21:25-0500 Body weight 74 kg DO Milana Jose Work Phone: [facility] 01-24-2024 16:39-0500 Body height 162.56 cm DO Milana Jose Work Phone: [facility] 10-19-2023 10:54-0500 Body height 162.56 cm DO Milana Jose Work Phone: [facility] 10-19-2023 10:54-0500 Body mass index (BMI) [Ratio] 26.2 kg/m2 DO Milana Jose Work Phone: [facility] 10-19-2023 10:54-0500 Body temperature 98.4 [degF] DO Milana Jose Work Phone: [facility] 10-19-2023 10:54-0500 Body weight 69.39 kg DO Milana Jose Work Phone: [facility] 10-19-2023 10:54-0500 Diastolic blood pressure 80 mm[Hg] DO Milana Jose Work Phone: [facility] 10-19-2023 10:54-0500 Heart rate 97 /min DO Milana Jose Work Phone: [facility] 10-19-2023 10:54-0500 Respiratory rate 16 /min DO Milana Jose Work Phone: [facility] 10-19-2023 10:54-0500 SaO2% (BldA) [Mass fraction] 90 % DO Milana Jose Work Phone: [facility] 10-19-2023 10:54-0500 Systolic blood pressure 147 mm[Hg] DO Milana Jose Work Phone: [facility] 10-10-2023 17:58-0500 Diastolic blood pressure 68 mm[Hg] DO Milana Jose Work Phone: [facility] 10-10-2023 17:58-0500 Heart rate 81 /min DO Milana Jose Work Phone: [facility] 10-10-2023 17:58-0500 Respiratory rate 16 /min DO Milana Jose Work Phone: [facility] 10-10-2023 17:58-0500 SaO2% (BldA) [Mass fraction] 97 % DO Milana Jose Work Phone: [facility] 10-10-2023 17:58-0500 Systolic blood pressure 128 mm[Hg] DO Milana Jose Work Phone: [facility] 10-10-2023 15:25-0500 Body mass index (BMI) [Ratio] 26.3 kg/m2 DO Milana Jose Work Phone: [facility] 10-10-2023 15:25-0500 Body temperature 98.4 [degF] DO Milana Jose Work Phone: [facility] 10-10-2023 15:25-0500 Body weight 69.58 kg DO Milana Jose Work Phone: [facility] 09-27-2023 15:27-0400 Body temperature 98.2 [degF] DO Milana Jose Work Phone: [facility] 09-27-2023 15:27-0400 Diastolic blood pressure 78 mm[Hg] DO Milana Jose Work Phone: [facility] 09-27-2023 15:27-0400 Heart rate 92 /min DO Milana Jose Work Phone: [facility] 09-27-2023 15:27-0400 Respiratory rate 17 /min DO Milana Jose Work Phone: [facility] 09-27-2023 15:27-0400 SaO2% (BldA) [Mass fraction] 92 % DO Milana Jose Work Phone: [facility] 09-27-2023 15:27-0400 Systolic blood pressure 145 mm[Hg] DO Milana Jose Work Phone: [facility] 09-15-2023 12:21-0400 Body temperature 98.6 [degF] DO Milanagillian Christensennger Work Phone: [facility] 09-15-2023 12:21-0400 Diastolic blood pressure 83 mm[Hg] DO Milana Jose Work Phone: [facility] 09-15-2023 12:21-0400 Heart rate 93 /min DO Milana Jose Work Phone: [facility] 09-15-2023 12:21-0400 Respiratory rate 17 /min DO Milanagillian Christensennger Work Phone: [facility] 09-15-2023 12:21-0400 SaO2% (BldA) [Mass fraction] 94 % DO Milana Jose Work Phone: [facility] 09-15-2023 12:21-0400 Systolic blood pressure 149 mm[Hg] DO Milana Jose Work Phone: [facility] 08-25-2023 10:00-0400 Body height 162.56 cm DO Milana Jose Work Phone: [facility] 08-25-2023 10:00-0400 Body mass index (BMI) [Ratio] 28.3 kg/m2 DO Milana Jose Work Phone: [facility] 08-25-2023 10:00-0400 Body weight 74.84 kg DO Milana Jose Work Phone: [facility] 08-25-2023 10:00-0400 Diastolic blood pressure 85 mm[Hg] DO Milana Jose Work Phone: [facility] 08-25-2023 10:00-0400 Heart rate 63 /min DO Milana Jose Work Phone: [facility] 08-25-2023 10:00-0400 Respiratory rate 18 /min DO Milana Jose Work Phone: [facility] 08-25-2023 10:00-0400 SaO2% (BldA) [Mass fraction] 96 % DO Milana Jose Work Phone: [facility] 08-25-2023 10:00-0400 Systolic blood pressure 136 mm[Hg] DO Milana Jose Work Phone: [facility] 08-23-2023 15:04-0400 Body temperature 97.6 [degF] DO Milana Jose Work Phone: [facility] 08-23-2023 15:04-0400 Diastolic blood pressure 78 mm[Hg] DO Milana Jose Work Phone: [facility] 08-23-2023 15:04-0400 Heart rate 78 /min DO Milana Jose Work Phone: [facility] 08-23-2023 15:04-0400 Respiratory rate 14 /min DO Milana Jose Work Phone: [facility] 08-23-2023 15:04-0400 SaO2% (BldA) [Mass fraction] 99 % DO Milana Jose Work Phone: [facility] 08-23-2023 15:04-0400 Systolic blood pressure 124 mm[Hg] DO Milana Jose Work Phone: [facility] 08-23-2023 11:44-0400 Body height 162.56 cm DO Milana Jose Work Phone: [facility] 08-23-2023 11:44-0400 Body mass index (BMI) [Ratio] 28.3 kg/m2 DO Milana Jose Work Phone: [facility] 08-23-2023 11:44-0400 Body weight 74.88 kg DO Milana Jose Work Phone: [facility] 07-29-2023 17:56-0400 Diastolic blood pressure 74 mm[Hg] DO Milana Jose Work Phone: [facility] 07-29-2023 17:56-0400 Heart rate 73 /min DO Milana Jose Work Phone: [facility] 07-29-2023 17:56-0400 Respiratory rate 15 /min DO Milana Jose Work Phone: [facility] 07-29-2023 17:56-0400 SaO2% (BldA) [Mass fraction] 98 % DO Milnaa Jose Work Phone: [facility] 07-29-2023 17:56-0400 Systolic blood pressure 117 mm[Hg] DO Milana Jose Work Phone: [facility] 07-29-2023 14:11-0400 Body height 162.56 cm DO Milana Jose Work Phone: [facility] 07-29-2023 14:11-0400 Body mass index (BMI) [Ratio] 27.8 kg/m2 DO Milana Jose Work Phone: [facility] 07-29-2023 14:11-0400 Body temperature 96.3 [degF] DO Milana Jose Work Phone: [facility] 07-29-2023 14:11-0400 Body weight 73.48 kg DO Milana Jose Work Phone: [facility] 07-01-2023 09:44-0400 Body height 162.56 cm DO Milana Jose Work Phone: [facility] 07-01-2023 09:44-0400 Body mass index (BMI) [Ratio] 27.8 kg/m2 DO Milana Jose Work Phone: [facility] 07-01-2023 09:44-0400 Body temperature 98.5 [degF] DO Milana Jose Work Phone: [facility] 07-01-2023 09:44-0400 Body weight 73.48 kg DO Milaan Jose Work Phone: [facility] 07-01-2023 09:44-0400 Diastolic blood pressure 88 mm[Hg] DO Milana Jose Work Phone: [facility] 07-01-2023 09:44-0400 Heart rate 88 /min DO Milana Jose Work Phone: [facility] 07-01-2023 09:44-0400 Respiratory rate 18 /min DO Milana Jose Work Phone: [facility] 07-01-2023 09:44-0400 SaO2% (BldA) [Mass fraction] 95 % DO Milana Jose Work Phone: [facility] 07-01-2023 09:44-0400 Systolic blood pressure 136 mm[Hg] DO Milana Jose Work Phone: [facility] 05-25-2023 02:54-0400 Diastolic blood pressure 64 mm[Hg] DO Milana Jose Work Phone: [facility] 05-25-2023 02:54-0400 Heart rate 90 /min DO Milana Jose Work Phone: [facility] 05-25-2023 02:54-0400 Respiratory rate 18 /min DO Milana Jose Work Phone: [facility] 05-25-2023 02:54-0400 Systolic blood pressure 132 mm[Hg] DO Milana Jose Work Phone: [facility] 05-25-2023 02:11-0400 SaO2% (BldA) [Mass fraction] 94 % DO Milana Jose Work Phone: [facility] 05-24-2023 21:32-0400 Body height 162.99 cm DO Milana Jose Work Phone: [facility] 05-24-2023 21:32-0400 Body mass index (BMI) [Ratio] 28.9 kg/m2 DO Milana Jose Work Phone: [facility] 05-24-2023 21:32-0400 Body temperature 96.7 [degF] DO Milana Jose Work Phone: [facility] 05-24-2023 21:32-0400 Body weight 76.9 kg DO Milana Jose Work Phone: [facility] 05-20-2023 09:58-0400 Body height 162.56 cm DO Milana Jose Work Phone: [facility] 05-20-2023 09:57-0400 Body mass index (BMI) [Ratio] 27.6 kg/m2 DO Milana Jose Work Phone: [facility] 05-20-2023 09:57-0400 Body weight 73.02 kg DO Milana Jose Work Phone: [facility] 05-20-2023 09:57-0400 Diastolic blood pressure 98 mm[Hg] DO Milana Jose Work Phone: [facility] 05-20-2023 09:57-0400 Heart rate 81 /min DO Milana Jose Work Phone: [facility] 05-20-2023 09:57-0400 Respiratory rate 18 /min DO Milana Jose Work Phone: [facility] 05-20-2023 09:57-0400 SaO2% (BldA) [Mass fraction] 97 % DO Milana Jose Work Phone: [facility] 05-20-2023 09:57-0400 Systolic blood pressure 156 mm[Hg] DO Milana Jose Work Phone: [facility] 05-05-2023 00:54-0400 Diastolic blood pressure 62 mm[Hg] DO Milana Jose Work Phone: [facility] 05-05-2023 00:54-0400 Heart rate 68 /min DO Milana Jose Work Phone: [facility] 05-05-2023 00:54-0400 Respiratory rate 16 /min DO Milana Jose Work Phone: [facility] 05-05-2023 00:54-0400 SaO2% (BldA) [Mass fraction] 96 % DO Milana Jose Work Phone: [facility] 05-05-2023 00:54-0400 Systolic blood pressure 97 mm[Hg] DO Milana Jose Work Phone: [facility] 05-04-2023 21:23-0400 Body mass index (BMI) [Ratio] 27.2 kg/m2 DO Milana Jose Work Phone: [facility] 05-04-2023 21:23-0400 Body weight 72 kg DO Milana Jose Work Phone: [facility] 05-04-2023 19:53-0400 Body height 162.56 cm DO Milana Jose Work Phone: [facility] 05-04-2023 19:53-0400 Body temperature 97.3 [degF] DO Milana Jose Work Phone: [facility] 04-11-2023 09:46-0400 Body temperature 98 [degF] DO Milana Jose Work Phone: [facility] 04-11-2023 09:46-0400 Diastolic blood pressure 63 mm[Hg] DO Milana Jose Work Phone: [facility] 04-11-2023 09:46-0400 Heart rate 85 /min DO Milana Jose Work Phone: [facility] 04-11-2023 09:46-0400 Respiratory rate 14 /min DO Milana Jose Work Phone: [facility] 04-11-2023 09:46-0400 SaO2% (BldA) [Mass fraction] 97 % DO Milana Jose Work Phone: [facility] 04-11-2023 09:46-0400 Systolic blood pressure 118 mm[Hg] DO Milana Jose Work Phone: [facility] 04-10-2023 03:47-0400 Body height 162.56 cm DO Milana Jose Work Phone: [facility] 04-10-2023 03:47-0400 Body mass index (BMI) [Ratio] 27.4 kg/m2 DO Milana Jose Work Phone: [facility] 04-10-2023 03:47-0400 Body weight 72.5 kg DO Milana Jose Work Phone: [facility] 04-10-2023 02:34-0400 Diastolic blood pressure 61 mm[Hg] DO Milana Jose Work Phone: [facility] 04-10-2023 02:34-0400 Heart rate 87 /min DO Milana Jose Work Phone: [facility] 04-10-2023 02:34-0400 Respiratory rate 16 /min DO Milana Jose Work Phone: [facility] 04-10-2023 02:34-0400 SaO2% (BldA) [Mass fraction] 95 % DO Milana Jose Work Phone: [facility] 04-10-2023 02:34-0400 Systolic blood pressure 114 mm[Hg] DO Milana Jose Work Phone: [facility] 04-10-2023 02:15-0400 Body temperature 98 [degF] DO Milana Jose Work Phone: [facility] 04-09-2023 22:23-0400 Body height 162.56 cm DO Milana Jose Work Phone: [facility] 04-09-2023 22:23-0400 Body mass index (BMI) [Ratio] 26.8 kg/m2 DO Milana Jose Work Phone: [facility] 04-09-2023 22:23-0400 Body weight 70.8 kg DO Milana Jose Work Phone: [facility] 03-22-2023 22:52-0400 Diastolic blood pressure 69 mm[Hg] DO Milana Jose Work Phone: [facility] 03-22-2023 22:52-0400 Heart rate 71 /min DO Milana Jose Work Phone: [facility] 03-22-2023 22:52-0400 Respiratory rate 18 /min DO Milana Jose Work Phone: [facility] 03-22-2023 22:52-0400 SaO2% (BldA) [Mass fraction] 98 % DO Milana Jose Work Phone: [facility] 03-22-2023 22:52-0400 Systolic blood pressure 111 mm[Hg] DO Milana Jose Work Phone: [facility] 03-22-2023 17:49-0400 Body height 162.56 cm DO Milana Jose Work Phone: [facility] 03-22-2023 17:49-0400 Body mass index (BMI) [Ratio] 26.5 kg/m2 DO Milana Jose Work Phone: [facility] 03-22-2023 17:49-0400 Body temperature 96.4 [degF] DO Milana Jose Work Phone: [facility] 03-22-2023 17:49-0400 Body weight 70.08 kg DO Milana Jose Work Phone: [facility] 02-12-2023 10:24-0400 Body temperature 98.2 [degF] DO Milana Trenter Work Phone: [facility] 02-12-2023 10:24-0400 Diastolic blood pressure 66 mm[Hg] DO Milana Trenter Work Phone: [facility] 02-12-2023 10:24-0400 Heart rate 83 /min DO Milana Trenter Work Phone: [facility] 02-12-2023 10:24-0400 Respiratory rate 16 /min DO Milana Trenter Work Phone: [facility] 02-12-2023 10:24-0400 SaO2% (BldA) [Mass fraction] 98 % DO Milana Trenter Work Phone: [facility] 02-12-2023 10:24-0400 Systolic blood pressure 104 mm[Hg] DO Milana Garcia Work Phone: [facility] 01-21-2023 15:06-0500 Diastolic blood pressure 82 mm[Hg] Dr. Calvin Waldrop Work Phone: [facility] 01-21-2023 15:06-0500 Heart rate 90 /min Dr. Calvin Waldrop Work Phone: [facility] 01-21-2023 15:06-0500 Respiratory rate 14 /min Dr. Calvin Waldrop Work Phone: [facility] 01-21-2023 15:06-0500 SaO2% (BldA) [Mass fraction] 98 % Dr. Calvin Waldrop Work Phone: [facility] 01-21-2023 15:06-0500 Systolic blood pressure 165 mm[Hg] Dr. Calvin Waldrop Work Phone: [facility] 01-21-2023 11:49-0500 Body height 162.[address] Calvin Waldrop Work Phone: [facility] 01-21-2023 11:49-0500 Body mass index (BMI) [Ratio] 27.5 kg/m2 Dr. Calvin Waldrop Work Phone: [facility] 01-21-2023 11:49-0500 Body temperature 97.2 [degF] Dr. Calvin Waldrop Work Phone: [facility] 01-21-2023 11:49-0500 Body weight 72.[address] Calvin Waldrop Work Phone: [facility] 11-19-2022 10:59-0500 Diastolic blood pressure 69 mm[Hg] Dr. Cavlin Waldrop Work Phone: [facility] 11-19-2022 10:59-0500 Heart rate 83 /min Dr. Calvin Waldrop Work Phone: [facility] 11-19-2022 10:59-0500 Systolic blood pressure 120 mm[Hg] Dr. Calvin Waldrop Work Phone: [facility] 11-19-2022 10:47-0500 Body temperature 98.5 [degF] Dr. Calvin Waldrop Work Phone: [facility] 11-19-2022 10:47-0500 Respiratory rate 16 /min Dr. Calvin Waldrop Work Phone: [facility] 11-19-2022 10:47-0500 SaO2% (BldA) [Mass fraction] 97 % Dr. Calvin Waldrop Work Phone: [facility] 11-18-2022 13:57-0500 Body height 162.[address] Calvin Waldrop Work Phone: [facility] Work Phone: 11-18-2022 13:57-0500 Body mass index (BMI) [Ratio] 28.5 kg/m2 Dr. Calvin Waldrop Work Phone: [facility] 11-18-2022 13:57-0500 Body weight 75.[address] Calvin Waldrop Work Phone: [facility] 10-31-2022 11:49-0500 Body temperature 98.2 [degF] Dr. Calvin Waldrop Work Phone: [facility] 10-31-2022 11:49-0500 Diastolic blood pressure 88 mm[Hg] Dr. Calvin Waldrop Work Phone: [facility] 10-31-2022 11:49-0500 Heart rate 98 /min Dr. Calvin Waldrop Work Phone: [facility] 10-31-2022 11:49-0500 Respiratory rate 14 /min Dr. Calvin Waldrop Work Phone: [facility] 10-31-2022 11:49-0500 SaO2% (BldA) [Mass fraction] 97 % Dr. Calvin Waldrop Work Phone: [facility] 10-31-2022 11:49-0500 Systolic blood pressure 136 mm[Hg] Dr. Calvin Waldrop Work Phone: [facility] 10-07-2022 14:59-0500 Body temperature 97.8 [degF] Dr. Calvin Waldrop Work Phone: [facility] 10-07-2022 14:59-0500 Diastolic blood pressure 80 mm[Hg] Dr. Calvin Waldrop Work Phone: [facility] 10-07-2022 14:59-0500 Heart rate 107 /min Dr. Calvin Waldrop Work Phone: [facility] 10-07-2022 14:59-0500 Respiratory rate 16 /min Dr. Calvin Waldrop Work Phone: [facility] 10-07-2022 14:59-0500 SaO2% (BldA) [Mass fraction] 98 % Dr. Calvin Waldrop Work Phone: [facility] 10-07-2022 14:59-0500 Systolic blood pressure 154 mm[Hg] Dr. Calvin Waldrop Work Phone: [facility] 09-05-2022 23:51-0400 Diastolic blood pressure 68 mm[Hg] Calvin Waldrop [facility] Work Phone: 09-05-2022 23:51-0400 Heart rate 115 /min [facility] Work Phone: 09-05-2022 23:51-0400 Respiratory rate 16 /min [facility] Work Phone: 09-05-2022 23:51-0400 SaO2% (BldA) [Mass fraction] 96 % [facility] Work Phone: 09-05-2022 23:51-0400 Systolic blood pressure 129 mm[Hg] [facility] Work Phone: 09-05-2022 21:11-0400 Body height 162.56 cm [facility] Work Phone: 09-05-2022 21:11-0400 Body mass index (BMI) [Ratio] 27.5 kg/m2 [facility] Work Phone: 09-05-2022 21:11-0400 Body temperature 98 [degF] [facility] Work Phone: 09-05-2022 21:11-0400 Body weight 72.7 kg [facility] Work Phone: 07-21-2022 18:58-0400 Body temperature 99 [degF] Samantha Deleon SENIOR [employer] DEVELOPER[employer] Work Phone: [facility] 07-21-2022 18:58-0400 Body weight 72.39 kg Samantha Deleon SENIOR IN[employer]ICA E[employer] DEVELOPER.[employer] Work Phone: [facility] 07-21-2022 18:58-0400 Diastolic blood pressure 84 mm[Hg] Samantha Deleon SENIOR IN[employer]ICA ETL DEVELOPER.[employer] Work Phone: [facility] 07-21-2022 18:58-0400 Heart rate 83 /min Samantha Deleon SENIOR IN[employer]ICA E[employer] DEVELOPER.[employer] Work Phone: [facility] 07-21-2022 18:58-0400 Respiratory rate 16 /min Samantha Deleon SENIOR INFORMATICA ETL DEVELOPER.[employer]AFTER [employer]OLOG[employer] Work Phone: [facility] 07-21-2022 18:58-0400 SaO2% (BldA) [Mass fraction] 98 % Samantha Deleon SENIOR INFORMATICA ETL DEVELOPER.[employer]AFTER [employer]OLOG[employer] Work Phone: [facility] 07-21-2022 18:58-0400 Systolic blood pressure 138 mm[Hg] Samantha Deleon SENIOR INFORMATICA ETL DEVELOPER.[employer]AFTER [employer]OLOG[employer] Work Phone: [facility] 05-31-2022 12:28-0400 Body mass index (BMI) [Ratio] 26.3 kg/m2 [facility] Work Phone: 05-31-2022 12:28-0400 Body temperature 97.3 [degF] [facility] Work Phone: 05-31-2022 12:28-0400 Body weight 69.51 kg [facility] Work Phone: 05-31-2022 12:28-0400 Diastolic blood pressure 76 mm[Hg] [facility] Work Phone: 05-31-2022 12:28-0400 Heart rate 69 /min [facility] Work Phone: 05-31-2022 12:28-0400 Respiratory rate 18 /min [facility] Work Phone: 05-31-2022 12:28-0400 SaO2% (BldA) [Mass fraction] 99 % [facility] [place] Work Phone: 05-31-2022 12:28-0400 Systolic blood pressure 116 mm[Hg] [facility] Work Phone: 02-22-2022 15:02-0400 Diastolic blood pressure 84 mm[Hg] [facility] Work Phone: 02-22-2022 15:02-0400 Heart rate 71 /min [facility] Work Phone: 02-22-2022 15:02-0400 Respiratory rate 14 /min [facility] Work Phone: 02-22-2022 15:02-0400 SaO2% (BldA) [Mass fraction] 96 % [facility] Work Phone: 02-22-2022 15:02-0400 Systolic blood pressure 120 mm[Hg] [facility] Work Phone: 02-22-2022 12:30-0400 Body temperature 96.2 [degF] [facility] Work Phone: 02-22-2022 12:12-0400 Body height 162.56 cm [facility] Work Phone: 02-22-2022 12:12-0400 Body mass index (BMI) [Ratio] 26.3 kg/m2 [facility] Work Phone: 02-22-2022 12:12-0400 Body weight 69.5 kg [facility] Work Phone: 06-10-2021 22:58-0400 Diastolic blood pressure 62 mm[Hg] No Pcp Required [facility] 06-10-2021 22:58-0400 Heart rate 88 /min No Pcp Required [facility] 06-10-2021 22:58-0400 Respiratory rate 16 /min No Pcp Required [facility] 06-10-2021 22:58-0400 SaO2% (BldA) [Mass fraction] 99 % No Pcp Required [facility] 06-10-2021 22:58-0400 Systolic blood pressure 105 mm[Hg] No Pcp Required [facility] 06-10-2021 22:27-0400 Body height 162.5 cm No Pcp Required [facility] 06-10-2021 22:27-0400 Body temperature 96.98 [degF] No Pcp Required [facility] 06-10-2021 22:27-0400 Body weight 72.7 kg No Pcp Required [facility] Encounters Encounter Date Encounter Type Care Provider Facility Start: 07-20-2025 Dr. Canelo [facility] Work Phone: Start: 07-19-2025 Dr. Canelo [facility] Work Phone: Start: 07-18-2025 Dr. Canelo Myers [facility] Work Phone: Start: 07-17-2025 ambulatory Chalon Sudha [facility] Start: 07-17-2025 End: 07-20-2025 Evaluation and management of inpatient Abisai Haley MD Work Phone: -[facility] 3 Start: 07-17-2025 End: 07-20-2025 Dr. Canelo Myers MD -[facility] Work Phone: Start: 05-28-2025 Non-patient / Non-visit Dr. Mao Becker DO [facility] Work Phone: Start: 05-28-2025 Dr. Mao Becker DO [facility] Work Phone: Start: 05-27-2025 Non-patient / [facility] Work Phone: Start: 05-27-2025 Dr. Mao Becker DO [facility] Work Phone: Start: 05-26-2025 Non-patient / Non-[facility] Work Phone: Start: 05-26-2025 Dr. Mao Becker DO [facility] Work Phone: Start: 05-25-2025 Non-patient / Non-visit Dr. Myra Null MD [facility] Work Phone: Start: 05-25-2025 ambulatory Chalon Sudha [facility] Start: 05-25-2025 End: 05-28-2025 Evaluation and management of inpatient Dr. Myra Null MD -[facility] 3 Work Phone: Start: 05-25-2025 End: 05-28-2025 Dr. Mao Becker [facility] 3 Work Phone: Start: 05-06-2025 Non-patient / Non-visit Dr. Mao Becker [facility] Work Phone: Start: 05-06-2025 Dr. Mao Becker [facility] Work Phone: Start: 05-05-2025 Non-patient / Non-visit Dr. Mao Becker [facility] Work Phone: Start: 05-05-2025 Dr. Mao Becker [facility] Work Phone: Start: 05-04-2025 Non-patient / Non-visit Dr. Canelo Myers MD [facility] Work Phone: Start: 05-04-2025 Dr. Canelo Myers MD [facility] Work Phone: Start: 05-03-2025 Non-patient / Non-visit Dr. Canelo Myers MD [facility] Work Phone: Start: 05-03-2025 Dr. Canelo Myers MD [facility] Work Phone: Start: 05-02-2025 Non-patient / Non-visit Dr. Canelo Myers MD [facility] Work Phone: Start: 05-02-2025 Dr. Canelo Myers MD [facility] Work Phone: Start: 05-01-2025 Non-patient / Non-visit Dr. Canelo Myers MD [facility] Work Phone: Start: 05-01-2025 Dr. Canelo Myers MD [facility] Work Phone: Start: 04-30-2025 Non-patient / Non-visit Dr. Canelo Myers MD [facility] Work Phone: Start: 04-30-2025 Dr. Canelo Myers MD [facility] Work Phone: Start: 04-29-2025 Non-patient / Non-visit Dr. Canelo Myers MD [facility] Work Phone: Start: 04-29-2025 Dr. Canelo Myers MD [facility] Work Phone: Start: 04-28-2025 Non-patient / Non-visit Dr. Canelo Myers MD [facility] Work Phone: Start: 04-28-2025 Dr. Canelo Myers MD -[facility] Work Phone: Start: 04-27-2025 Non-patient / Non-visit Dr. Canelo Myers MD [facility] Work Phone: Start: 04-27-2025 Dr. Canelo Myers MD -[facility] Work Phone: Start: 04-26-2025 Non-patient / Non-visit Dr. Julius Moncada MD [facility] Work Phone: Start: 04-26-2025 ambulatory Abisai Haley [facility] Start: 04-26-2025 End: 05-06-2025 Evaluation and management of inpatient Dr. Julius Moncada MD -Progressive Care Unit Work Phone: Start: 04-26-2025 End: 05-06-2025 Dr. Mao Becker DO -[facility] Surgical 3 Work Phone: Start: 04-11-2025 End: 04-12-2025 Dr. Francisco Colon MD -Emergency Departmen t Work Phone: Start: 04-11-2025 End: 04-12-2025 Emergency department patient visit Abisai Haley MD Work Phone: -Emergency Department Work Phone: Start: 04-04-2025 End: 04-04-2025 Dr. Imani Knight DO -Emergency Departme nt Work Phone: Start: 04-04-2025 End: 04-04-2025 Emergency department patient visit Abisai Haley MD Work Phone: -Emergency Department Work Phone: Start: 01-03-2025 ambulatory Chaldean Sudha Facility:[facility] Start: 11-12-2024 End: 11-12-2024 Emergency department patient visit Rober Concepcion Facility:[facility] Start: 10-09-2024 End: 10-09-2024 ambulatory Abisai Sudha Facility:[facility] Start: 09-25-2024 End: 09-25-2024 ambulatory Ivonnoris Sams Facility:[facility] Start: 08-28-2024 End: 08-28-2024 ambulatory Thangdean Sudha Facility:[facility] Start: 08-22-2024 End: 08-22-2024 ambulatory Chaldean Sudha Facility:[facility] Start: 08-22-2024 End: 08-22-2024 ambulatory Chaldean Sudha Facility:[facility] Start: 08-15-2024 End: 08-15-2024 ambulatory Abisai Haley Facility:[facility] Start: 04-22-2024 End: 04-22-2024 ambulatory IHSAN Yarbrough LAUREN Facility:[facility] Start: 04-22-2024 End: 04-22-2024 Patient encounter procedure Aretha Schofield APRN.[employer]AFTER GEOLOGICAL Work Phone: [facility] Comment on above: Sinus congestion (Pr imary Dx); Wheezing; Nausea Start: 03-22-2024 End: 03-22-2024 Patient encounter procedure DO Milana Garcia Work Phone: [facility] Work Phone: Start: 03-21-2024 End: 03-21-2024 ambulatory DO Milana Garcia Work Phone: [facility] Work Phone: Start: 03-21-2024 End: 03-21-2024 Patient encounter procedure DO Milana Garcia Work Phone: [facility] Start: 01-24-2024 End: 01-24-2024 Emergency department patient [facility] Start: 10-19-2023 End: 10-19-2023 Patient encounter procedure DO Milana Garcia Work Phone: [facility] Work Phone: Start: 10-15-2023 End: 10-15-2023 ambulatory DO Milana Garcia Work Phone: [facility] Work Phone: Start: 10-15-2023 End: 10-15-2023 Patient encounter procedure DO Milana Garcai Work Phone: [facility] Work Phone: Start: 10-10-2023 End: 10-10-2023 Emergency department patient visit DO Milana Garcia [facility] Start: 09-27-2023 End: 09-27-2023 Patient encounter procedure DO Milana Garcia Work Phone: [facility] Work Phone: Start: 09-15-2023 End: 09-15-2023 Patient encounter procedure DO Milana Garcia Work Phone: [facility] Work Phone: Start: 08-25-2023 End: 08-25-2023 ambulatory DO Milana Garcia Work Phone: [facility] Work Phone: Start: 08-25-2023 End: 08-25-2023 Patient encounter procedure DO Milana Garcia Work Phone: [facility] Work Phone: Start: 08-25-2023 End: 08-25-2023 Patient encounter procedure DO Milana Trenter Work Phone: [facility] Work Phone: Start: 08-23-2023 End: 08-23-2023 Emergency department patient visit DO Milana Garcia [facility] Start: 07-29-2023 End: 07-29-2023 Emergency department patient visit DO Milana Garcia [facility] Start: 07-19-2023 End: 07-19-2023 ambulatory DO Milana Christensennger Work Phone: [facility] Work Phone: Start: 07-19-2023 End: 07-19-2023 Patient encounter procedure DO Milana Trenter Work Phone: [facility] Work Phone: Start: 07-01-2023 End: 07-01-2023 Patient encounter procedure DO Milana Garcia [facility] Work Phone: Start: 05-25-2023 Registered Referred DO Mil[facility]renter [facility] Start: 05-24-2023 End: 05-25-2023 Emergency department patient visit DO Milana Trenter Work Phone: [facility] Start: 05-20-2023 End: 05-20-2023 Patient encounter procedure DO Milana Trenter Work Phone: [facility] Start: 05-19-2023 End: 05-19-2023 ambulatory DO Milana Garcia Work Phone: [facility] Work Phone: Start: 05-19-2023 End: 05-19-2023 Patient encounter procedure DO Milana Christensennger Work Phone: [facility] Start: 05-04-2023 End: 05-05-2023 Emergency department patient visit DO Milana Christensennger Work Phone: [facility] Start: 04-11-2023 Non-patient / Non-visit DO Milana Garcia Work Phone: [facility] Start: 04-10-2023 End: 04-10-2023 Non-patient / Non-visit DO Milana Garcia Work Phone: [facility] Start: 04-10-2023 End: 04-11-2023 Evaluation and management of inpatient DO Milanagillian Christensennger [facility] Start: 04-09-2023 End: 04-09-2023 Patient encounter procedure DO Milanagillian Christensennger Work Phone: [facility] Start: 03-22-2023 End: 03-22-2023 Emergency department patient visit DO Milana Jose Work Phone: [facility] Start: 02-12-2023 End: 02-12-2023 Patient encounter procedure DO Milana Jose Work Phone: [facility] Start: 01-21-2023 End: 01-21-2023 Emergency department patient visit Dr. Calvin Waldrop Work Phone: [facility] Start: 11-19-2022 Non-patient / Non-visit Dr. Calvin Waldrop Work Phone: [facility] Start: 11-19-2022 Non-patient / Non-visit Dr. Calvin Waldrop Work Phone: [facility] Start: 11-18-2022 Non-patient / Non-visit Dr. Calvin Waldrop Work Phone: [facility] Start: 11-18-2022 Non-patient / Non-visit Dr. Calvin aWldrop Work Phone: [facility] Start: 11-18-2022 End: 11-19-2022 Evaluation and management of inpatient [facility] Calvin [facility]drop [facility] Start: 10-31-2022 End: 10-31-[address] Calvin Waldrop Work Phone: [facility] Start: 10-07-2022 End: 10-07-[address] Calvin Waldrop Work Phone: [facility] Start: 09-05-2022 End: 09-06-2022 [facility] Start: 07-21-2022 End: 07-21-2022 Subsequent hospital visit by physician Xr [facility] Work Phone: Radiology Comment on above: Hip pain, acute, lef t [M25.552] Start: 07-21-2022 End: 07-21-2022 Patient encounter procedure Samantha Deleon APRN.CNP Work Phone: [facility] Comment on above: Hip pain, acute, lef t (Primary Dx) Start: 05-31-2022 End: 05-31-2022 Patient encounter procedure Calvin Waldrop [facility] Start: 02-22-2022 End: 02-22-2022 [facility] Start: 06-10-2021 End: 06-10-2021 Emergency department patient visit Noe Engel [facility] Emergency 07 Procedures Date Procedure Procedure Detail Performing Clinician Start: 07-20-2025 Blood count smear rscp w/mnl difrntl wbc count Abisai Haley MD Work Phone: Start: 07-20-2025 Estimated creatinine clearance Abisai Haley MD Work Phone: Start: 07-20-2025 Mean corpuscular hem oglobin concentration determination Abisai Haley MD Work Phone: Start: 07-20-2025 Nucleated red blood cell count procedure Abisai Haley MD Work Phone: Start: 07-20-2025 Platelet mean volume determination Abisai Haley MD Work Phone: Start: 07-18-2025 Serum inorganic phos phate measurement Abisai Haley MD Work Phone: Start: 07-18-2025 Triacylglycerol lipa se measurement Abisai Haley MD Work Phone: Start: 07-17-2025 Urine microscopy: red cells Abisai Haley MD Work Phone: Start: 07-17-2025 Urnls dip stick/tabl et reagent auto microscopy Abisai Haley MD Work Phone: Start: 07-17-2025 Computed tomography of abdomen and pelvis with intravenous contrast Abisai Haley MD Work Phone: Start: 07-17-2025 Blood count smear mc rscp w/mnl difrntl wbc count Abisai Haley MD Work Phone: Start: 07-17-2025 Calculation of inter national normalized ratio Abisai Haley MD Work Phone: Start: 07-17-2025 Estimated creatinine clearance Abisai Haley MD Work Phone: Start: 07-17-2025 Mean corpuscular hem oglobin concentration determination Abisai Haley MD Work Phone: Start: 07-17-2025 Nucleated red blood cell count procedure Abisai Haley MD Work Phone: Start: 07-17-2025 Platelet mean volume determination Abisai Haley MD Work Phone: Start: 07-17-2025 Triacylglycerol lipa se measurement Abisai Haley MD Work Phone: Start: 05-25-2025 Serum inorganic phos phate measurement Abisai Haley MD Work Phone: Start: 05-24-2025 Benzodiazepine measu rement, urine Abisai Haley MD Work Phone: Start: 05-24-2025 Blood count smear mc rscp w/mnl difrntl wbc count Abisai Haley MD Work Phone: Start: 05-24-2025 Cocaine measurement, urine Abisai Haley MD Work Phone: Start: 05-24-2025 Estimated creatinine clearance Abisai Haley MD Work Phone: Start: 05-24-2025 Mean corpuscular hem oglobin concentration determination Abisai Haley MD Work Phone: Start: 05-24-2025 Methadone measurement, urine Abisai Haley MD Work Phone: Start: 05-24-2025 Nucleated red blood cell count procedure Abisai Haley MD Work Phone: Start: 05-24-2025 Platelet mean volume determination Abisai Haley MD Work Phone: Start: 05-24-2025 Urine cannabinoid measurement Abisai Haley MD Work Phone: Start: 05-24-2025 Urine microscopy: red cells Abisai Haley MD Work Phone: Start: 05-24-2025 Urine opiate measurement Abisai Haley MD Work Phone: Start: 05-24-2025 Urnls dip stick/tabl et reagent auto microscopy Abisai Haley MD Work Phone: Start: 05-04-2025 Blood count smear mc rscp w/mnl difrntl wbc count Abisai Haley MD Work Phone: Start: 05-04-2025 Estimated creatinine clearance Abisai Haley MD Work Phone: Start: 05-04-2025 Mean corpuscular hem oglobin concentration determination Abisai Haley MD Work Phone: Start: 05-04-2025 Nucleated red blood cell count procedure Abisai Haley MD Work Phone: Start: 05-04-2025 Platelet mean volume determination Abisai Haley MD Work Phone: Start: 05-02-2025 Serum inorganic phos phate measurement Abisai Haley MD Work Phone: Start: 04-28-2025 Triacylglycerol lipa se measurement Abisai Haley MD Work Phone: Start: 04-27-2025 Calculation of inter national normalized ratio Abisai Haley MD Work Phone: Start: 04-26-2025 Urine microscopy: red cells Abisai Haley MD Work Phone: Start: 04-26-2025 Urnls dip stick/tabl et reagent auto microscopy Abisai Haley MD Work Phone: Start: 04-26-2025 Estimated creatinine clearance Abisai Haley MD Work Phone: Start: 04-26-2025 Computed tomography of abdomen and pelvis with intravenous contrast Abisai Haley MD Work Phone: Start: 04-11-2025 Urine microscopy: red cells Abisai Haley MD Work Phone: Start: 04-11-2025 Urnls dip stick/tabl et reagent auto microscopy Abisai Haley MD Work Phone: Start: 04-11-2025 X-ray of chest, PA a nd lateral views Abisai Haley MD Work Phone: Start: 04-11-2025 Blood count smear mc rscp w/mnl difrntl wbc count Abisai Haley MD Work Phone: Start: 04-11-2025 Estimated creatinine clearance Abisai Haley MD Work Phone: Start: 04-11-2025 Mean corpuscular hem oglobin concentration determination Abisai Haley MD Work Phone: Start: 04-11-2025 Nucleated red blood cell count procedure Abisai Haley MD Work Phone: Start: 04-11-2025 Platelet mean volume determination Abisai Haley MD Work Phone: Start: 04-11-2025 Triacylglycerol lipa se measurement Abisai Haley MD Work Phone: Start: 04-04-2025 Computed tomography of abdomen and pelvis with intravenous contrast Abisai Haley MD Work Phone: Start: 04-04-2025 Plain chest X-ray Stefano Haley MD Work Phone: Start: 04-04-2025 Blood count smear mc rscp w/mnl difrntl wbc count Abisai Haley MD Work Phone: Start: 04-04-2025 Mean corpuscular hem oglobin concentration determination Abisai Haley MD Work Phone: Start: 04-04-2025 Nucleated red blood cell count procedure Abisai Haley MD Work Phone: Start: 04-04-2025 Platelet mean volume determination Abisai Haley MD Work Phone: Start: 04-04-2025 Triacylglycerol lipa se measurement Abisai Haley MD Work Phone: Start: 03-22-2024 X-ray [...] CT of head without contrast DO Milana Garcia Work Phone: Start: 05-04-2023 CT of head without contrast DO Milana Garcia Work Phone: Start: 05-04-2023 Plain chest X-ray DO Lauro Garcia Work Phone: Start: 04-10-2023 Bacteria identified in Blood by Culture DO Milana Garcia Work Phone: Start: 04-10-2023 MRI of brain [...] unilateral with pelvis 2-3 views Samantha Deleon SENIOR INFORMATICA ETL DEVELOPER.[employer] Work Phone: Start: 02-22-2022 Plain chest X-ray Start: 06-21-2020 Mammography Samantha Ri ggs SENIOR INFORMATICA ETL DEVELOPER.[employer] Work Phone: Start: 09-11-2015 Colonoscopy Samantha Ri ggs SENIOR INFORMATICA ETL DEVELOPER.[employer]AFTER [employer]OLOG[employer] Work Phone: Bacteria identified in Blood by Culture DO Milana Garcia Work Phone: Plan of Treatment Date Care Activity Detail Author Start: 03-03-2034 Urine microalbumin profile DTaP,Tdap,Td Vaccine (3 - Td or Tdap) [facility] Start: 07-20-2025 Patient discharge [facility] Start: 07-18-2025 [facility] Start: 07-17-2025 End: 07-18-2025 [facility] Start: 07-17-2025 Following clinical pathway protocol [facility] Start: 07-17-2025 Ambulation without limitation [facility] Start: 07-17-2025 Assessment of risk of venous thromboembolism [facility] Start: 07-17-2025 Care regimes management [facility] Start: 07-17-2025 Insertion of catheter into peripheral vein [facility] Start: 07-17-2025 Measuring intake and output [facility] Start: 07-17-2025 Notification of physician [facility] Start: 07-17-2025 Oxygen therapy [facility] Start: 07-17-2025 Providing care according to standard [facility] Start: 07-17-2025 Vital signs measurements [facility] Start: 07-17-2025 Prothrombin time [facility] Start: 07-17-2025 Verification routine [facility] Start: 07-17-2025 Hospital admission, emergency, from emergency room, medical nature [facility] Start: 07-17-2025 Admission procedure [facility] Start: 07-17-2025 Patient referral to dietitian [facility] Start: 07-17-2025 [facility] Start: 05-28-2025 Patient discharge [facility] Start: 05-26-2025 [facility] Start: 05-25-2025 Assessment of risk of venous thromboembolism [facility] Start: 05-25-2025 Care regimes management [facility] Start: 05-25-2025 Inhalation therapy procedure [facility] Start: 05-25-2025 Introduction of urinary catheter [facility] Start: 05-25-2025 Notification of physician [facility] Start: 05-25-2025 Oxygen therapy [facility] Start: 05-25-2025 Provision of activity privileges [facility] Start: 05-25-2025 Referral to service [facility] Start: 05-25-2025 Vital signs measurements [facility] Start: 05-25-2025 End: 05-25-2025 [facility] Start: 05-25-2025 Following clinical pathway protocol [facility] Start: 05-25-2025 Hospital admission, emergency, from emergency room, medical nature [facility] Start: 05-25-2025 Verification routine [facility] Start: 05-25-2025 Admission procedure [facility] Start: 05-06-2025 Patient discharge [facility] Start: 05-05-2025 Inhalation therapy procedure [facility] Start: 05-01-2025 Referral to occupational therapist [facility] Start: 05-01-2025 Referral to service [facility] Start: 04-29-2025 Oxygen therapy [facility] Start: 04-28-2025 Assessment of risk of venous thromboembolism [facility] Start: 04-28-2025 Notification of physician [facility] Start: 04-28-2025 Vital signs measurements [facility] Start: 04-27-2025 [facility] Start: 04-27-2025 Hepatic function panel [facility] Start: 04-27-2025 Prothrombin time [facility] Start: 04-27-2025 Serum inorganic phosphate measurement [facility] Start: 04-27-2025 Thyroid stimulating hormone measurement [facility] Start: 04-26-2025 Following clinical pathway protocol [facility] Start: 04-26-2025 End: 04-26-2025 [facility] Start: 04-26-2025 Care regimes management [facility] Start: 04-26-2025 Notification of physician [facility] Start: 04-26-2025 Admission procedure [facility] Start: 04-26-2025 Ambulation without limitation [facility] Start: 04-26-2025 Assessment of risk of venous thromboembolism [facility] Start: 04-26-2025 Insertion of catheter into peripheral vein [facility] Start: 04-26-2025 Providing care according to standard [facility] Start: 04-26-2025 Verification routine [facility] Start: 04-26-2025 Hospital admission, emergency, from emergency room, medical nature [facility] Start: 04-26-2025 Patient referral to dietitian [facility] Start: 04-12-2025 [facility] Start: 04-11-2025 [facility] Start: 04-05-2025 [facility] Start: 04-04-2025 [facility] Start: 04-04-2025 End: 04-04-2025 [facility] Start: 07-30-2024 Covid-19 Vaccine () Covid-19 Vaccine () [facility] Start: 07-30-2024 Influenza vaccination [facility] Start: 06-07-2024 Hepatitis B Vaccine (3 of 3 - Hep B Twinrix 3-dose series) Hepatitis B Vaccine (3 of 3 - Hep B Twinrix 3-dose series) [facility] Start: 03-22-2024 Patient referral [facility] Work Phone: Start: 01-24-2024 [facility] Start: 01-24-2024 End: 01-24-2024 [facility] Start: 10-26-2023 HPV TESTING HPV TESTING [facility] Start: 10-26-2023 PAP TESTING PAP TESTING [facility] Start: 10-26-2023 Screening for malignant neoplasm of cervix [facility] Start: 10-15-2023 Elastase, pancreatic (el-1), fecal; quantitative [facility] Start: 10-10-2023 [facility] Start: 10-10-2023 [facility] Start: 09-26-2023 Urine microalbumin profile DTAP,TDAP,TD (2 - Td or Tdap) [facility] Start: 07-29-2023 [facility] Start: 05-24-2023 [facility] Start: 05-04-2023 [facility] Start: 04-11-2023 Patient discharge [facility] Start: 04-10-2023 Following clinical pathway protocol [facility] Start: 04-10-2023 Ambulation without limitation [facility] Start: 04-10-2023 Assessment of risk of venous thromboembolism [facility] Start: 04-10-2023 Care regimes management [facility] Start: 04-10-2023 Inhalation therapy procedure [facility] Start: 04-10-2023 Insertion of catheter into peripheral vein [facility] Start: 04-10-2023 Measuring intake and output [facility] Start: 04-10-2023 Notification of physician [facility] Start: 04-10-2023 Providing care according to standard [facility] Start: 04-10-2023 Tobacco use cessation education [facility] Start: 04-10-2023 [facility] Start: 04-10-2023 Electrocardiographic procedure [facility] Start: 04-10-2023 Verification routine [facility] Start: 04-10-2023 Admission procedure [facility] Start: 04-10-2023 End: 04-10-2023 Blood culture [facility] Start: 01-21-2023 [facility] Start: 11-19-2022 Patient referral [facility] Work Phone: Start: 11-19-2022 Patient discharge [facility] Start: 11-19-2022 Notification of physician [facility] Start: 11-19-2022 Patient education [facility] Start: 11-19-2022 Pulse taking [facility] Start: 11-19-2022 Taking patient vital signs [facility] Start: 11-19-2022 Wound care [facility] Start: 11-19-2022 [facility] Start: 11-19-2022 Catheterization of left heart [facility] Work Phone: Start: 11-18-2022 Assessment of risk of venous thromboembolism [facility] Start: 11-18-2022 Care regimes management [facility] Start: 11-18-2022 Insertion of catheter into peripheral vein [facility] Start: 11-18-2022 Measuring intake and output [facility] Start: 11-18-2022 Providing care according to standard [facility] Start: 11-18-2022 Referral to pump rebuilder [facility] Start: 11-18-2022 [facility] Start: 11-18-2022 Following clinical pathway protocol [facility] Start: 11-18-2022 Catheterization of vein [facility] Start: 11-18-2022 Medication not administered [facility] Start: 11-18-2022 Notification of physician [facility] Start: 11-18-2022 Preoperative care [facility] Start: 11-18-2022 [facility] Start: 11-18-2022 Admission procedure [facility] Start: 10-07-2022 Patient referral [facility] Work Phone: Start: 07-30-2022 Influenza vaccination INFLUENZA (#1) [facility] Start: 2022 COLOGUARD (FIT-DNA) COLOGUARD (FIT-DNA) [facility] Start: 2022 Colonoscopy COLONOSCOPY [facility] Start: 2022 COLORECTAL CANCER SCREENING COLORECTAL CANCER SCREENING [facility] Start: [address] COLONOGRAPHY [facility] Start: 2022 FECAL OCCULT BLOOD FECAL OCCULT BLOOD [facility] Start: 2022 Screening for malignant neoplasm of colon [facility] Start: 2022 SIGMOIDOSCOPY SIGMOIDOSCOPY [facility] Start: 07-15-2021 ANNUAL PCP TEAM CHRONIC DISEASE VISIT ANNUAL PCP TEAM CHRONIC DISEASE VISIT [facility] Start: 07-03-2021 Screening for malignant neoplasm of breast Mammogram Screening [facility] Start: 06-21-2021 Hepatitis B screening URINE ALBUMIN:CREATININE RATIO [facility] Start: 06-21-2021 Hepatitis B surface antibody level LDL CHOLESTEROL [facility] Start: 06-21-2021 Mammography MAMMOGRAM [facility] Start: 05-19-2021 COVID-19 VACCINE (3 - Booster for Pfizer series) COVID-19 VACCINE (3 - Booster for Pfizer series) [facility] Start: 11-19-2020 Hemoglobin A1c measurement HbA1C [facility] Start: 11-19-2020 Hemoglobin A1c/Hemoglobin.total in Blood HBA1C [facility] Start: 07-19-2020 3 comp foot exam completed DIABETIC FOOT EXAM [facility] Start: 07-19-2020 Diabetic foot examination Diabetic Foot Exam [facility] Start: 12-26-2019 Glaucoma screening Dilated Retinal Exam [facility] Start: 12-26-2019 Hepatitis C antibody, confirmatory test DILATED RETINAL EXAM [facility] Start: 10-20-2014 PNEUMOCOCCAL (2 - PCV) PNEUMOCOCCAL (2 - PCV) [facility] Start: 1995 Anxiety Screening Anxiety Screening [facility] Start: 1995 BP CONTROLLED (<130/80) BP CONTROLLED (<130/80) [facility] Start: 1995 HEPATITIS C SCREENING HEPATITIS C SCREENING [facility] Start: 1995 Hepatitis C screening Hepatitis C Screening [facility] Start: 1995 HIV SCREENING HIV SCREENING [facility] Start: 1995 HIV screening HIV Screening [facility] Start: 1977 HEPATITIS B (1 of 3 - 3-dose series) HEPATITIS B (1 of 3 - 3-dose series) [facility] Alanine aminotransfe rase [Enzymatic activity/volume] in Serum or Plasma [facility] Albumin [Mass/volume ] in Serum or Plasma [facility] Alkaline phosphatase [Enzymatic activity/volume] in Serum or Plasma [facility] Anion gap in Serum or Plasma [facility] Bacteria identified in Blood by Culture Blood Culture [facility] Bilirubin, total measurement [facility] Bilirubin.direct [Ma ss/volume] in Serum or Plasma [facility] BUN/Creatinine ratio [facility] Calcium [Mass/volume ] in Serum or Plasma [facility] Carbon dioxide, tota l [Moles/volume] in Central venous blood [facility] Cardiac event recording [facility] Creatinine [Mass/vol ume] in Serum or Plasma [facility] Erythrocyte mean cor puscular volume determination [facility] Fat [Mass/mass] in Stool [facility] Fat.neutral [Presenc e] in Stool [facility] Glucose [Mass/volume ] in Serum or Plasma [facility] Hematocrit [Volume F raction] of Blood [facility] Hemoglobin [Mass/vol ume] in Blood [facility] Hemoglobin A1c/Hemoglobin.total in Blood [facility] INR in Blood by Coag ulation assay [facility] INR in Blood by Coag ulation assay [facility] Leukocytes [#/volume] in Blood [facility] Magnesium measurement [facility] Mean corpuscular hem oglobin concentration determination [facility] Mean corpuscular hem oglobin determination [facility] Measurement of renal function [facility] Neutrophil count [facility] Neutrophil percent differential count [facility] Patient Education [facility] Work Phone: Patient referral [facility] Work Phone: Platelets [#/volume] in Blood [facility] Potassium measurement [facility] Red blood cell count [facility] Red cell distributio n width determination [facility] Serum chloride measurement [facility] Sodium measurement [facility] Total protein measurement [facility] Troponin T.cardiac [Mass/volume] in Serum or Plasma by High sensitivity method [facility] Urea nitrogen [Mass/ volume] in Serum or Plasma [facility] Immunizations Immunization Date Immunization Notes Care Provider Juany griffith 10-16-2022 influenza virus vacc ine, unspecified formulation Aretha Schofield SENIOR INFORMATICA ETL DEVELOPER.[facility] Work Phone: [facility] 09-16-2018 influenza, injectabl e, quadrivalent, contains preservative Samantha Deleon SENIOR INFORMATICA ETL DEVELOPER.[facility] Work Phone: [facility] Work Phone: 11-19-2015 influenza, injectabl e, quadrivalent, contains preservative Samantha Deleon SENIOR INFORMATICA ETL DEVELOPER.[facility] Work Phone: [facility] 10-02-2014 influenza, seasonal, injectable Samantha Deleon SENIOR INFORMATICA ETL DEVELOPER[employer] Work Phone: [facility] Work Phone: 09-27-2014 influenza, injectabl e, quadrivalent, preservative free DO Milana Garcia Work Phone: [facility] 09-27-2014 influenza, seasonal, injectable [facility] 10-20-2013 pneumococcal polysaccharide vaccine, 23 valent Samantha Deleon SENIOR INFORMATICA ETL DEVELOPER.[facility] Work Phone: [facility] Work Phone: 09-27-2013 Pneumococcal Vaccine [facility] Work Phone: 09-27-2013 pneumococcal vaccine , unspecified formulation Dr. Calvin Waldrop Work Phone: [facility] 09-26-2013 tetanus toxoid, redu lenin diphtheria toxoid, and acellular pertussis vaccine, adsorbed Samantha Deleon SENIOR INFORMATICA ETL DEVELOPER[employer] Work Phone: [facility] 09-15-2013 influenza virus vacc ine, unspecified formulation Samantha Deleon SENIOR INFORMATICA ETL DEVELOPER.[facility] Work Phone: [facility] Work Phone: 09-15-2013 influenza, injectabl e, quadrivalent, preservative free DO Milana Garcia Work Phone: [facility] 09-15-2013 influenza, seasonal, injectable [facility] Payers Date Payer Category Payer Self-pay [id number] 2024 Self-pay 2022 Unknown 2020 Unknown [id number] 2017 Unknown [id number] Private Health Insurance [facility] [id number] Unknown [id number] Unknown [id number] Unknown [id number] 2.16.840.1.758170.3.579.2.4 62 Unknown [id number] 2.16.840.1.499488.3.579.2.4 62 Unknown [id number] 2.16.840.1.385566.3.579.2.4 62 Unknown [id number] 2.16.840.1.388779.3.579.2.4 62 Unknown [id number] 2.16.840.1.422095.3.579.2.4 62 Unknown [id number] 2.16.840.1.512714.3.579.2.4 62 Unknown [id number] 2.16.840.1.727914.3.579.2.4 62 Unknown [id number] 2.16.840.1.681733.3.579.2.4 62 Unknown [id number] 2.16.840.1.799930.3.579.2.4 62 Unknown [id number] 2.16.840.1.223959.3.579.2.4 62 Unknown [id number] 2.16.840.1.248547.3.579.2.4 62 Unknown [id number] 2.16.840.1.329178.3.579.2.4 62 Unknown [id number] 2.16.840.1.572245.3.579.2.4 62 Unknown [id number] 2.16.840.1.159552.3.579.2.4 62 Unknown [id number] 2.16.840.1.775339.3.579.2.4 62 Unknown [id number] 2.16.840.1.925959.3.579.2.4 62 Unknown [id number] 2.16.840.1.887913.3.579.2.4 62 Unknown [id number] 2.16.840.1.842421.3.579.2.4 62 Unknown [id number] 2.16.840.1.030772.3.579.2.4 62 Unknown [id number] 2.16.840.1.570708.3.579.2.4 62 Unknown [id number] 2.16.840.1.792652.3.579.2.4 62 Unknown [id number] 2.16.840.1.491251.3.579.2.4 62 Unknown [id number] 2.16.840.1.904952.3.579.2.4 62 Unknown [id number] 2.16.840.1.417742.3.579.2.4 62 Unknown [id number] 2.16.840.1.387152.3.579.2.4 62 Unknown [id number] 2.16.840.1.055111.3.579.2.4 62 Unknown [id number] 2.16.840.1.791590.3.579.2.4 62 Unknown [id number] 2.16.840.1.317172.3.579.2.4 62 Unknown [id number] 2.16.840.1.151273.3.579.2.4 62 Unknown [id number] 2.16.840.1.140576.3.579.2.4 62 Unknown [id number] 2.16.840.1.816183.3.579.2.4 62 Unknown [id number] 2.16.840.1.901022.3.579.2.4 62 Unknown [id number] 2.16.840.1.243713.3.579.2.4 62 Social History Date Type Detail Facility [facility] Start: 02-22-2022 End: 01-24-2024 Tobacco smoking consumption unknown [facility] Start: 04-14-2021 Sober [facility] Start: 04-14-2021 None [facility] Start: 04-14-2021 Cigarettes [facility] Start: 1975 Sex Assigned At Female C [facility] Start: 07-21-2022 [facility] Start: 11-29-1996 End: 07-11-2020 History of tobacco use Current smoker [facility] Start: 11-29-1996 End: 07-11-2020 History of tobacco use Cigarette Smoker [facility] Start: 11-04-2020 End: 07-21-2022 Cigarettes smoked current (pack per day) - Reported 0.5 [facility] Start: 07-21-2022 Tobacco use and exposure Smokeless tobacco non-user [facility] Start: 07-21-2022 End: 04-22-2024 Alcohol intake Current drinker of alcohol (finding) [facility] Start: 06-05-2020 End: 08-01-2020 History SDOH Alcohol Frequency 3 [facility] Start: 06-05-2020 End: 08-01-2020 History SDOH Alcohol Std Drinks 1 [facility] Start: 06-05-2020 End: 08-01-2020 History SDOH Alcohol Binge 2 [facility] Start: 09-16-2018 History SDOH 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 [facility] Start: 01-15-2020 History SDOH Social Connections Living 8 [facility] Start: 06-05-2020 History SDOH Physica l Activity DPW 0 [facility] Start: 07-01-2020 History SDOH Financial 5 [facility] Start: 01-14-2020 Education 12 [facility] Start: 07-21-2022 Tobacco Comment stopped 3 weeks ago [facility] Start: 09-26-2014 With Family [facility] Start: 06-05-2020 End: 11-04-2020 Social connection and isolation panel [facility] Frequency of Communication with Friends and Family Not on file [facility] Do you belong to any clubs or organizations such as yarsanism groups, unions, fraternal or athletic groups, or school groups? No [facility] How often to you hav e a drink containing alcohol? 2-4 times a month [facility] How many standard drinks containing alcohol do you have on a typical day? 1 or 2 [facility] How often do you hav e 6 or more drinks on 1 occasion? Less than monthly [facility] Do you feel stress - tense, restless, nervous, or anxious, or unable to sleep at night because your mind is troubled all the time - these days [OSQ] To some extent [facility] (I/We) worried mary er (my/our) food would run out before (I/we) got money to buy more. Never true [facility] Start: 07-15-2020 Gender identity Identifies as female gender (finding) [facility] Start: 07-15-2020 Sexual orientation Heterosexual (chucky acevedo) [facility] Start: 04-04-2025 Tobacco smoking stat us DEIS Current some day smoker [facility] Start: 04-11-2025 End: 07-18-2025 Tobacco smoking status NHIS Current Light tobacco smoker [facility] NEGATED: Highlighted row [facility] NEGATED: Highlighted row Not [facility] Goals Date Patient Goal Desired Activity /State Functional Status Date Assessment Result Facility 07-20-2025 Functional status Up ad seble [facility] Work Phone: 05-28-2025 Functional status Ambulates;Up ad seble [facility] Work Phone: 05-27-2025 Functional status None [facility] Work Phone: 05-06-2025 Functional status Bathroom Privilege [facility] Work Phone: 04-11-2023 Functional status Activity Ability Indepe ndent [facility] Work Phone: 04-11-2023 Functional status Ambulates;Bathroom Priv ilege [facility] Work Phone: 11-19-2022 Functional status Ambulates [facility] Work Phone: 11-18-2022 Functional status Assistive Devices None [facility] Work Phone: Mental Status Date Assessment Result Facility 07-19-2025 Cognitive function Voice/Name [facility] Work Phone: 05-28-2025 Cognitive function Voice/Name [facility] Work Phone: 05-06-2025 Cognitive function Voice/Name [facility] Work Phone: 04-11-2025 Cognitive function Voice/Name [facility] Work Phone: 01-24-2024 Cognitive function Voice/Name [facility] Work Phone: 10-10-2023 Cognitive function Level Of Cons ciousness Awake;Alert;Appropriate [facility] Work Phone: 07-29-2023 Cognitive function Level Of Cons ciousness Awake;Alert;Appropriate;Follow s Commands [facility] Work Phone: 05-24-2023 Cognitive function Voice/Name [facility] Work Phone: 05-04-2023 Cognitive function Level Of Cons ciousness Awake;Alert;Appropriate [facility] Work Phone: 04-11-2023 Cognitive function Voice/Name [facility] Work Phone: 04-09-2023 Cognitive function Level Of Cons ciousness Awake;Alert;Appropriate;Follow s Commands [facility] Work Phone: 03-22-2023 Cognitive function Level Of Cons ciousness Awake;Alert;Appropriate;Follow s Commands [facility] Work Phone: 01-21-2023 Cognitive function Voice/Name [facility] Work Phone: 11-19-2022 Cognitive function Voice/Name [facility] Work Phone: 09-05-2022 Cognitive function Level Of Cons ciousness Awake;Alert;Appropriate [facility] Work Phone: 02-22-2022 Cognitive function Level Of Cons ciousness Awake;Alert;Appropriate;Follow s Commands;Responds to vocal stimuli [facility] Work Phone: Clinical Notes 07-17-2019 to 07-20-2025 Note Date & Type Note Facility 07-20-2025 Note [facility] 07-20-2025 Hospital Discharg e instructions Additional Instructions Date of Discharge: 07/20/25 [facility] Work Phone: 07-20-2025 Progress note Note Date/Time July 20, 2025 9:04am [facility] Medical Records Department [address] [place] [address] Progress Note - Hospitalist 07/20/25 0731 MR#: [id number] Acct: [id number] Name: JOSEPH RINCON Rep #:[id number] : 1975 50 From: Canelo Myers MD PCP: Dr. Abisai Haley MD Status:ADM IN Location: [place] [id number] Reason for Visit Chief Complaint: Abdominal pain Subjective Subjective Patient seen overall pain control improving. Plan is for patient to be advancedto regular diet prior to being assessed for possible discharge. Consult was also placed to [facility] counseling services regarding her continuous alcohol use Objective Data Objective Data Vital Signs: Vital Signs Temp Pulse Resp BP Pulse Ox O2 Del Method O2 Flow Rate 98.7 F 80 16 116/69 94 Nasal Cannula 2 07/20/25 03:33 07/20/25 07:27 07/20/25 07:27 07/20/25 03:33 07/20/25 07:27 07/20/25 07:27 07/20/25 07:27 Oxygen Flow Rate (L/min) 2 Oxygen Delivery Method Nasal Cannula Weight: 64.1 kg Body Mass Index (BMI) 24.1 Intake & Output: Intake and Output for Last 24 Hours 07/18/25 07/19/25 07/20/25 23:59 23:59 23:59 Intake Total 4600 / 4600 770 / 970 400 / 400 Output Total 300 / 300 800 / 800 Balance 4300 / 4300 -30 / 170 400 / 400 Lab / Micro Data 07/20/25 06:02 07/20/25 06:02 Labs: Laboratory Results - last 24 hr 07/19/25 06:24: Platelet Estimate SLT 07/19/25 11:58: POC Glucose 140 H 07/19/25 15:56: POC Glucose 91 07/19/25 22:23: POC Glucose 121 H 07/20/25 06:02: WBC 4.3 L, RBC 2.84 L, Hgb 9.6 L, Hct 29.2 L, MCV 102.8 H, MCH 33.8 H, MCHC 32.9, RDW Std Deviation 57.6 H, RDW Coeff of Braxton 15.2 H, Plt Count 114 L, MPV 10.9, Immature Gran % (Auto) 0.200, Neut % (Auto) 66.7, Lymph % (Auto) 19.5, [place] % (Auto) 11.8 H, Eos % (Auto) 1.6, Baso % (Auto) 0.2, AbsoluteNeuts (auto) 2.8, Absolute Lymphs (auto) 0.83, Nucleated RBC % 0 07/20/25 06:17: POC Glucose 111 H Physical Exam Narrative GENERAL: cooperative HEENT: Atraumatic; normocephalic EYES; Anicteric, Normal Conjunctiva NECK; supple, normal thyroid, RESPIRATORY: Diminished to auscultation CARDIOVASCULAR: Regular S1 S2, GI: soft, normoactive bowel sounds, : No Renal angle tenderness; EXTREMITIES: No edema, no clubbing, MUSCULOSKELETAL: no muscle wasting NEURO: Awake; no lateralizing signs. SKIN: No Rash PSYCH; Flat affect Assessment & Plan Assessment/Plan (1) Acute alcoholic pancreatitis: PLAN: Plan Patient is a 50-year-old lady with history of alcohol dependence, prior episodesof pancreatitis who presented with abdominal pain. Patient was found to have elevated lipase level consistent with acute pancreatitis admitted to regular nursing floor for further 1. Acute on chronic pancreatitis ? Patient has been admitted to a monitored bed for symptom management including IV fluids, pain meds as well as antinausea medication.. Patient lipase level markedly elevated on admission greater than 3000 repeat levels ordered in a.m. ? 07/18/2025 patient continues to experience significant symptoms. Will continuewith current treatment regimen. Patient started on clear liquids ? 07/19/2025Patient seen admitted some improvement in her pain level. Plan is toadvance patient diet to full liquid. ? 07/20/2025; patient seen pain continues to improve patient will be advanced to regular diet and assess for discharge 2. Alcohol withdrawal ? Patient was started on CIWA protocol placed on phenobarb taper. Patient was counseled on the need for cessation. She plans to follow-up with [facility] after discharge ? 07/18/2025; patient denies being tremulous however she thought she was hearing voices of his son ? 07/20/2025; consult was placed to [facility] 3. Hypokalemia ? Patient started on potassium replacement repeat labs ordered in a.m. for follow-up ? 07/18/2025; patient potassium up to 3.[address] patient on scheduled potassium 20 mg twice daily 4. Acute alcoholic hepatitis ? Following with serial LFTs in a.m. ? Patient transaminases have worsened we will continue with monitoring ? 07/19/2025; patient transaminases improving we will hold off consulting GI 5. Acute hypertensive urgency ? Patient blood pressure markedly elevated on admission her pain may be contributing to the elevated blood pressure did continue with home meds ordered hydralazine as needed for systolic blood pressure greater than 160 ? 07/18/2025; patient blood pressure control not optimal given her significant pain ? 07/19/2025; patient blood pressure has stabilized 6. Dyslipidemia ?Patient is on statin therapy, continued at home dose 7. COPD ? Currently not in exacerbation aerosol treatments as needed 8. Diabetes mellitus type II -patient's oral hypoglycemics held. Placed on long acting insulin, Accu-Cheks a.c. and at bedtime and covered with sliding scale insulin 9. GERD ? Patient is on Protonix 40 mg twice daily?continue home 10. Tobacco dependence ? Counseled on cessation, offered nicotine patch for tobacco cravings 11. Depression with anxiety ? Patient is on citalopram bupropion as well as buspirone held buspirone continue with the 12. Severe malnutrition. Related to: inadequate oral intake; As evidenced by: 10% unintentional weight loss x <1 month and PO meeting <50% of estimated nutrition needs x 1 month. Consult placed to dietitian 13. Anemia ? Secondary to chronic disorder monitoring H&H and transfuse if patient becomes symptomatic or hemoglobin falls below 7 14. Hypomagnesemia ? Corrected per protocol, repeat mag level ordered in a.m. to assess response totherapy 15. Thrombocytopenia ? Secondary to patient chronic alcohol use patient was on enoxaparin discontinued given the drop in the platelet count 16. DVT prophylaxis ? Discontinue enoxaparin given drop in platelet Time spent in the patient's overall evaluation,decision-making process, review of diagnostic data, adjustment of management, discussion with other providers, nursing nursing and ancillary staff involved in patient's care documentation, 40 minutes Charges/Coding Visit Charges Inpatient E&M: 60885 Subs Hosp L2 07/20/25 0904 <Electronically signed by Canelo Myers MD> Cosigner Signature (if applicable): CC: ~ Signed [facility] Work Phone: 1(435) 769-404108-21-2025 Progress note Author Canelo Myers [facility] Note Date/Time July 19, 2025 9: 41am [facility] Medical Records Department [address] [place] [address] Progress Note - Hospitalist 07/19/2538 MR#: [id number] Acct: [id number] Name: JOSEPH RINCON Rep #:[id number] : 1975 50 From: Canelo Myers MD PCP: Dr. Abisai Haley MD Status:ADM IN Location: NM3 [id number] Reason for Visit Chief Complaint: Abdominal pain Subjective Subjective Patient seen admitted some improvement in her pain level. Her transaminases also trending in the right direction. Plan is to advance patient diet to full liquid. Patient remains on phenobarb taper for alcohol withdrawal Objective Data Objective Data Vital Signs: Vital Signs Temp Pulse Resp BP Pulse Ox O2 Del Method O2 Flow Rate 97.0 F L 86 14 108/49 L 94 Nasal Cannula 2 07/19/25 08:10 07/19/25 08:10 07/19/25 08:10 07/19/25 08:10 07/19/25 08:10 07/19/25 08:10 07/19/25 08:10 Oxygen Flow Rate (L/min) 2 Oxygen Delivery Method Nasal Cannula Weight: 60.4 kg Body Mass Index (BMI) 22.7 Intake & Output: Intake and Output for Last 24 Hours 07/17/25 07/18/25 07/19/25 23:59 23:59 23:59 Intake Total 2580 / 2580 4600 / 4600 150 / 150 Output Total 400 / 400 300 / 300 Balance 2180 / 2180 4300 / 4300 150 / 150 Lab / Micro Data 07/19/25 06:24 07/19/25 06:24 Labs: Laboratory Results - last 24 hr 07/18/25 10:54: POC Glucose 109 H 07/18/25 16:37: POC Glucose 108 H 07/18/25 22:21: POC Glucose 104 07/19/25 06:19: POC Glucose 94 07/19/25 06:24: WBC 4.5, RBC 2.78 L, Hgb 9.5 L, Hct 28.4 L, MCV 102.2 H, MCH 34.2 H, MCHC 33.5, RDW Std Deviation 58.1 H, RDW Coeff of Braxton 15.3 H, Plt Count 93 L, MPV 9.9, Immature Gran % (Auto) 0.400, Neut % (Auto) 61.0, Lymph % (Auto) 25.9, [place] % (Auto) 10.3 H, Eos % (Auto) 2.2, Baso % (Auto) 0.2, Absolute Neuts (auto) 2.7, Absolute Lymphs (auto) 1.16, Nucleated RBC % 0, Platelet Estimate SLT DEC, Sodium 134, Potassium 3.5, Chloride 98, Carbon Dioxide 25.2, Anion Gap 10, BUN 3 L, Creatinine 0.42 L, Estim Creat Clear Calc 141.45, Est GFR (MDRD) Non-Af 121, BUN/Creatinine Ratio 6.1 L, Glucose 93, Calcium 7.0 L, Total Bilirubin 1.07, AST 289 H, ALT 150 H, Alkaline Phosphatase 133 H, Total Protein 5.0 L, Albumin 3.0 L, Globulin 2.1 L, Albumin/Globulin Ratio 1.4 Physical Exam Narrative GENERAL: cooperative but tremulous at rest HEENT: Atraumatic; normocephalic EYES; Anicteric, Normal Conjunctiva NECK; supple, normal thyroid, RESPIRATORY: Diminished to auscultation CARDIOVASCULAR: Regular S1 S2, GI: soft, normoactive bowel sounds, : No Renal angle tenderness; EXTREMITIES: No edema, no clubbing, MUSCULOSKELETAL: no muscle wasting NEURO: Awake; no lateralizing signs. SKIN: No Rash PSYCH; Flat affect Assessment & Plan Assessment/Plan (1) Acute alcoholic pancreatitis: PLAN: Plan Patient is a 50-year-old lady with history of alcohol dependence, prior episodesof pancreatitis who presented with abdominal pain. Patient was found to have elevated lipase level consistent with acute pancreatitis admitted to regular nursing floor for further 1. Acute on chronic pancreatitis ? Patient has been admitted to a monitored bed for symptom management including IV fluids, pain meds as well as antinausea medication.. Patient lipase level markedly elevated on admission greater than 3000 repeat levels ordered in a.m. ? 07/18/2025 patient continues to experience significant symptoms. Will continuewith current treatment regimen. Patient started on clear liquids ? 07/18/2025Patient seen admitted some improvement in her pain level. Plan is toadvance patient diet to full liquid. 2. Alcohol withdrawal ? Patient was started on CIWA protocol placed on phenobarb taper. Patient was counseled on the need for cessation. She plans to follow-up with [facility] after discharge ? 07/18/2025; patient denies being tremulous however she thought she was hearing voices of his son 3. Hypokalemia ? Patient started on potassium replacement repeat labs ordered in a.m. for follow-up ? 07/18/2025; patient potassium up to 3.[address] patient on scheduled potassium 20 mg twice daily 4. Acute alcoholic hepatitis ? Following with serial LFTs in a.m. ? Patient transaminases have worsened we will continue with monitoring ? 07/19/2025; patient transaminases improving we will hold off consulting GI 5. Acute hypertensive urgency ? Patient blood pressure markedly elevated on admission her pain may be contributing to the elevated blood pressure did continue with home meds ordered hydralazine as needed for systolic blood pressure greater than 160 ? 07/18/2025; patient blood pressure control not optimal given her significant pain ? 07/19/2025; patient blood pressure has stabilized 6. Dyslipidemia ?Patient is on statin therapy, continued at home dose 7. COPD ? Currently not in exacerbation aerosol treatments as needed 8. Diabetes mellitus type II -patient's oral hypoglycemics held. Placed on long acting insulin, Accu-Cheks a.c. and at bedtime and covered with sliding scale insulin 9. GERD ? Patient is on Protonix 40 mg twice daily?continue home 10. Tobacco dependence ? Counseled on cessation, offered nicotine patch for tobacco cravings 11. Depression with anxiety ? Patient is on citalopram bupropion as well as buspirone held buspirone continue with the 12. Severe malnutrition. Related to: inadequate oral intake; As evidenced by: 10% unintentional weight loss x <1 month and PO meeting <50% of estimated nutrition needs x 1 month. Consult placed to dietitian 13. Anemia ? Secondary to chronic disorder monitoring H&H and transfuse if patient becomes symptomatic or hemoglobin falls below 7 14. Hypomagnesemia ? Corrected per protocol, repeat mag level ordered in a.m. to assess response totherapy 15. Thrombocytopenia ? Secondary to patient chronic alcohol use patient was on enoxaparin discontinued given the drop in the platelet count 16. DVT prophylaxis ? Discontinue enoxaparin given drop in platelet Time spent in the patient's overall evaluation,decision-making process, review of diagnostic data, adjustment of management, discussion with other providers, nursing nursing and ancillary staff involved in patient's care documentation, 40 minutes Charges/Coding Visit Charges Inpatient E&M: 08305 Subs Hosp L2 07/19/25 0941 <Electronically signed by Canelo Myers MD> Cosigner Signature (if applicable): CC: ~ Signed [facility] Work Phone: 1(733) 332-285008-20-2025 Progress note Author Canelo Myers [facility] Note Date/Time July 18, 2025 9: 43am [facility] Medical Records Department [address] [facility] [place] [address] Progress Note - Hospitalist 07/18/25 0745 MR#: [id number] Acct: [id number] Name: JOSEPH RINCON Rep #:[id number] : 1975 50 From: Canelo Myers MD PCP: Dr. Abisai Haley MD Status:ADM IN Location: MS3 [id number] Reason for Visit Chief Complaint: Abdominal pain Subjective Subjective Patient seen still complains of significant abdominal pain and nausea. Adjustedher Zofran frequency from Q8 to every 4 hours. Patient has elevated transaminases lipase level slightly down. Blood pressure remains elevated Objective Data Objective Data Vital Signs: Vital Signs Temp Pulse Resp BP Pulse Ox O2 Del Method O2 Flow Rate 98.5 F 95 16 178/85 H 95 Room Air 1 07/18/25 07:21 07/18/25 07:21 07/18/25 07:21 07/18/25 07:21 07/18/25 07:21 07/18/25 07:21 07/18/25 05:10 Oxygen Flow Rate (L/min) 1 Oxygen Delivery Method Room Air Weight: 60.5 kg Body Mass Index (BMI) 22.7 Intake & Output: Intake and Output for Last 24 Hours 07/16/25 07/17/25 07/18/25 23:59 23:59 23:59 Intake Total 2580 / 2580 2400 / 2400 Output Total 400 / 400 300 / 300 Balance 2180 / 2180 2100 / 2100 Lab / Micro Data 07/18/25 06:13 07/18/25 06:13 Labs: Laboratory Results - last 24 hr 07/17/25 10:35: WBC 7.0, RBC 3.90 L, Hgb 13.2, Hct 38.5, MCV 98.7, MCH 33.8 H, MCHC 34.3, RDW Std Deviation 56.5 H, RDW Coeff of Braxton 15.9 H, Plt Count 150, MPV9.7, Immature Gran % (Auto) 0.600, Neut % (Auto) 80.3 H, Lymph % (Auto) 11.2 L, [place] % (Auto) 7.2, Eos % (Auto) 0.3, Baso % (Auto) 0.4, Absolute Neuts (auto) 5.6, Absolute Lymphs (auto) 0.78 L, Nucleated RBC % 0, PT 12.9, INR 1.0, Sodium 144, Potassium 3.0 L, Chloride 99, Carbon Dioxide 25.6, Anion Gap 19 H, BUN 6, Creatinine 0.39 L, Estim Creat Clear Calc 152.33, Est GFR (MDRD) Non-Af 123, BUN/Creatinine Ratio 15.5, Glucose 120 H, Calcium 8.6, Phosphorus 4.4, Magnesium1.1 L, Total Bilirubin 0.43, AST 165 H, ALT 92 H, Alkaline Phosphatase 98, TotalProtein 6.6, Albumin 3.9, Globulin 2.7, Albumin/Globulin Ratio 1.4, Amylase 898 H, Lipase > 3000 H 07/17/25 11:30: Serum , Qual NEGATIVE, Ethyl Alcohol 34.9 H 07/17/25 12:00: Urine Color Yellow, Urine Clarity Clear, Urine pH 6.5, Ur Specific Hawley 1.010, Urine Protein 30 H, Urine Glucose (UA) Normal, Urine Ketones 5 H, Urine Occult Blood 10 H, Urine Nitrite Negative, Urine Bilirubin Negative, Urine Urobilinogen Normal, Ur Leukocyte Esterase 25 H, Urine RBC 0 SEEN, Urine WBC 0 SEEN, Ur Squamous Epith Cells 0-5 SEEN, Urine Bacteria 0 SEEN,Urine Mucus 0 SEEN 07/17/25 16:58: POC Glucose 71 L 07/17/25 22:11: POC Glucose 151 H 07/18/25 06:13: WBC 4.6, RBC 3.19 L, Hgb 10.8 L, Hct 32.6 L, MCV 102.2 H, MCH 33.9 H, MCHC 33.1, RDW Std Deviation 58.9 H, RDW Coeff of Braxton 15.8 H, Plt Count 103 L, MPV 10.0, Immature Gran % (Auto) 0.700, Neut % (Auto) 73.2 H, Lymph % (Auto) 14.1 L, [place] % (Auto) 9.2, Eos % (Auto) 2.4, Baso % (Auto) 0.4, Absolute Neuts (auto) 3.3, Absolute Lymphs (auto) 0.64 L, Nucleated RBC % 0, Sodium 137, Potassium 3.6, Chloride 100, Carbon Dioxide 24.0, Anion Gap 13, BUN 5, Creatinine 0.32 L, Estim Creat Clear Calc 185.66, Est GFR (MDRD) Non-Af 128, BUN/Creatinine Ratio 16.1, Glucose 76, Calcium 7.0 L, Phosphorus 2.7, Magnesium 1.7, Total Bilirubin 1.36 H, AST 788 H, ALT 223 H, Alkaline Phosphatase 176 H, Total Protein 5.5 L, Albumin 3.3 L, Globulin 2.2, Albumin/Globulin Ratio 1.5 07/18/25 06:33: POC Glucose 84 Radiography Diagnostic Testing: Radiology Impression Abdomen/Pelvis CT 07/17/25 11:09 IMPRESSION: 1. Acute on chronic, uncomplicated, interstitial edematous pancreatitis. 2. Cholecystectomy. No biliary duct dilation. 3. Mild liver enlargement. Very severe fatty infiltration. 4. Small volume free fluid in the cul-de-sac is reactive. Small free fluid in the retroperitoneum related to the pancreatitis. Reading Location: [facility] Physical Exam Narrative GENERAL: cooperative but tremulous at rest HEENT: Atraumatic; normocephalic EYES; Anicteric, Normal Conjunctiva NECK; supple, normal thyroid, RESPIRATORY: Diminished to auscultation CARDIOVASCULAR: Regular S1 S2, GI: soft, normoactive bowel sounds, : No Renal angle tenderness; EXTREMITIES: No edema, no clubbing, MUSCULOSKELETAL: no muscle wasting NEURO: Awake; no lateralizing signs. SKIN: No Rash PSYCH; Flat affect Assessment & Plan Assessment/Plan (1) Acute alcoholic pancreatitis: PLAN: Plan Patient is a 50-year-old lady with history of alcohol dependence, prior episodesof pancreatitis who presented with abdominal pain. Patient was found to have elevated lipase level consistent with acute pancreatitis admitted to regular nursing floor for further 1. Acute on chronic pancreatitis ? Patient has been admitted to a monitored bed for symptom management including IV fluids, pain meds as well as antinausea medication.. Patient lipase level markedly elevated on admission greater than 3000 repeat levels ordered in a.m. ? 07/18/2025 patient continues to experience significant symptoms. Will continuewith current treatment regimen. Patient started on clear liquids 2. Alcohol withdrawal ? Patient was started on CIWA protocol placed on phenobarb taper. Patient was counseled on the need for cessation. She plans to follow-up with [facility] after discharge ? 07/18/2025; patient denies being tremulous however she thought she was hearing voices of his son 3. Hypokalemia ? Patient started on potassium replacement repeat labs ordered in a.m. for follow-up ? 07/18/2025; patient potassium up to 3.[address] patient on scheduled potassium 20 mg twice daily 4. Acute alcoholic hepatitis ? Following with serial LFTs in a.m. ? Patient transaminases have worsened we will continue with monitoring 5. Acute hypertensive urgency ? Patient blood pressure markedly elevated on admission her pain may be contributing to the elevated blood pressure did continue with home meds ordered hydralazine as needed for systolic blood pressure greater than 160 ? 07/18/2025; patient blood pressure control not optimal given her significant pain 6. Dyslipidemia ?Patient is on statin therapy, continued at home dose 7. COPD ? Currently not in exacerbation aerosol treatments as needed 8. Diabetes mellitus type II -patient's oral hypoglycemics held. Placed on long acting insulin, Accu-Cheks a.c. and at bedtime and covered with sliding scale insulin 9. GERD ? Patient is on Protonix 40 mg twice daily?continue home 10. Tobacco dependence ? Counseled on cessation, offered nicotine patch for tobacco cravings 11. Depression with anxiety ? Patient is on citalopram bupropion as well as buspirone held buspirone continue with the 12. Severe malnutrition. Related to: inadequate oral intake; As evidenced by: 10% unintentional weight loss x <1 month and PO meeting <50% of estimated nutrition needs x 1 month. Consult placed to dietitian 13. DVT prophylaxis ? On enoxaparin 14. Hypomagnesemia ? Corrected per protocol, repeat mag level ordered in a.m. to assess response totherapy Time spent in the patient's overall evaluation,decision-making process, review of diagnostic data, adjustment of management, discussion with other providers, nursing nursing and ancillary staff involved in patient's care documentation, 50 minutes Charges/Coding Visit Charges Inpatient E&M: 71166 Subs Hosp L3 07/18/25 0943 <Electronically signed by Canelo Myers MD> Cosigner Signature (if applicable): CC: ~ Signed [facility] Work Phone: 1(951) 216-329508-19-2025 Discharge summary Author Francisco Colon [facility] Note Date/Time July 17, 2025 3: 13pm [facility] Medical Records Department [address] [place] [address] [place] [address] Emergency Department Summary 07/17/25 MR#: [id number] Acct: [id number] Name: JOSEPH RINCON Rep #:[id number] : 1975 50 From: Francisco Colon MD PCP: Dr. Abisai Haley MD Status:ADM IN Location: MS3 [id number] HPI HPI - GI History of Present Illness Chief Complaint: Abd Pain Informant: patient Abdominal Pain/Flank Pain Onset: Today and Yesterday Context: Gradual Onset Timing: Continuous Quality: Aching Location: Epigastric, LUQ and See Diagram (Radiates into the back. History of pancreatitis feels the same.) Current Severity: Moderate Maximum Severity: Moderate Worsened by: Nothing Relieved by: Nothing Nausea/Vomiting/Emesis GI Symptom: Positive for Nausea and Vomiting Onset: Today Severity: Mild Diarrhea/Melena/Hematochezia GI Symptom: Negative for Diarrhea, Melena or Hematochezia Associated Symptoms Associated Symptoms: Negative for Dysuria, Frequency, Hematuria or Urgency Narrative Narrative: 50-year-old female history of prior pancreatitis, diabetes and hypertension. States she has had epigastric left upper quadrant and back pain yesterday and today. Associated nausea vomiting. No diarrhea. No melena. No fever. No hematemesis. Nothing particular makes the pain better or worse. Prior similar symptoms: Yes Recent Illness/Hospitalization: No PFSH PFSH Medical History Admitted to alcohol detoxification center Pancreatitis Hypokalemia Nausea & vomiting Intractable abdominal pain Strain of left foot Plantar fasciitis of [...] mg PO DAILY Unknown History extended release montelukast 10 mg tablet 10 mg PO DAILY 04/09/23 Unkn own History (Singulair) pantoprazole 40 mg tablet,delayed 40 mg PO BID 3 Unknown History release cholecalciferol (vitamin D3) 50 50 mcg PO DAILY Unknown History mcg (2,000 unit) capsule magnesium 250 mg tablet 250 mg PO DAILY 08/25/23 Unk nown History albuterol sulfate 90 mcg/actuation 2 puff inhalation [...] 5 mg tablet 5 mg PO TID PRN anxiety 06/22 Unknown History hydroxyzine HCl 10 mg tablet 10 mg PO TID PRN PRN anxi ety 04/04/25 Unknown History levocetirizine 5 mg tablet 5 mg PO DAILY 04/11/25 Unkn own History lisinopril 40 mg tablet 40 mg PO DAILY 04/11/25 Unkn own History atorvastatin 40 mg tablet 40 mg PO DAILY #30 tabs 03/29 08/23 Unknown Rx budesonide-formoterol HFA 160 2 puff inhalation BID SO B 04/26/25 Unknown History mcg-4.5 mcg/actuation aerosol inhaler glimepiride 4 mg tablet 4 mg PO DAILY #30 tabs 05/06 Unknown Rx fluoxetine 40 mg capsule 40 mg PO DAILY 07/17/25 Unkn own History Allergy/AdvReac Type Severity Reaction Status Date / Time No Known Allergies Allergy Verified 07/17/25 10:16 Family History Grandfather CVA (cerebral vascular accident) Diabetes Mother Cancer Father Hypertension Grandmother Hypertension Diabetes Surgical History History of cholecystectomy H/O tooth extraction plantar fasciitis release Social History household members: spouse and children housing: house pets and animals: Yes Smoking Status: Light Smoker (<10/day) alcohol intake: current alcohol intake frequency: 3 or more drinks per day Alcohol type: hard liquor details: At least 1/5 vodka daily, recently increased EtOH intake. substance use type: does not use ROS ROS ED ROS Narrative Upper abdominal pain. Nausea vomiting. Constitutional Constitutional ED: Denies chills or fever(s) ENT ENT ED: Denies ear pain Cardiovascular Cardiovascular: Denies chest pain Respiratory/Chest Respiratory/Chest: Denies cough or dyspnea Gastrointestinal Gastrointestinal: Reports abdominal pain, nausea and vomiting; Denies constipation, diarrhea or melena Genitourinary Genitourinary ED: Denies dysuria or hematuria Musculoskeletal Musculoskeletal: Reports back pain; Denies arthralgias Integumentary Denies abscess or Abrasions Neurologic Neurologic: Denies headache(s) Psychiatric Psychiatric: Denies anxiety Endocrine Endocrinology: Denies polydipsia Hematologic/Lymphatic Hematologic/Lymphatic: Denies easy bleeding Allergic/Immunologic Allergic/Immunologic ED: Denies mouth swelling, tongue swelling or urticaria EXAM Physical Exam Narrative Exam Narrative: 50-year-old female sitting upright in bed. Vital signs are stable afebrile doesnot look septic or toxic. Is complaining of upper abdominal pain. H EENT exam pupils round react light. Moist mucous membranes. Neck nontender no JVD. Lungs clear to auscultation bilaterally. Heart tachycardic no murmur. Rate about 110. Chest wall and ribs nontender. Abdomen soft nondistended normal bowel sounds without peritoneal signs. Has both epigastric and left upper quadrant tenderness. No hernia or mass. No Christina sign. No McBurney's point tenderness. No distention. No pulsatile mass. No obstruction. Back no reproducible pain. Moving all 4 extremities. Nontender. No edema normal strength. Neurologically she is awake alert. Answering questions and followingcommands. Const Vital Signs: 07/17/25 10:14 07/17/25 10:33 07/17/25 12:13 Temperature 98.8 F 98.8 F Temperature Source Oral Oral Pulse Rate 110 H 110 H 86 Respiratory Rate 18 18 16 Blood Pressure 161/105 H 161/105 H 148/65 H Blood Pressure Mean 123 123 92 Pulse Ox 96 96 100 Oxygen Delivery Method Room Air Room Air Room Air Positive well nourished and well developed; Negative for obese, cachectic, contractures or unkempt General Appearance ED: well developed and NAD; Negative for unkempt, cachectic, contractures or pallor Nutritional Appearance: Negative for cachectic or obese HEENT Reports moist mucous membranes normocephalic and atraumatic Eyes PERRL and EOMs intact bilaterally Neck no lymphadenopathy, supple and no JVD Resp normal respiratory effort and clear to auscultation bilaterally Cardio regular rhythm, S1 normal heart sound, S2 normal heart sound and no murmurs; Negative for regular rate Rate: tachycardic GI non-distended; Negative for non-tender Auscultation: normoactive bowel sounds Palpation: soft and tender; Negative for guarding, hernia, mass, pulsatile mass or rebound tenderness present Back/Spine no CVA tenderness General Back: Negative for CVA tenderness Cervical Spine: Negative for cervical spine tenderness Thoracic Spine / Upper Back: Negative for thoracic spinal tenderness Lumbar Spine / Lower Back: Negative for lumbar spinal tenderness Extremity full ROM General Extremety ED: Negative for edema or tenderness General Extremity: Negative for edema Neuro CN's II-XII intact bilaterally and moves all extremities Sensorium / Orientation: alert, oriented to person, oriented to place and oriented to time Motor Exam: strength 5/5 throughout Psych mental status grossly normal and thought process normal Appearance: Negative for unkempt Attitude: No agitated Mood & Affect: Negative for depressed, anxious or tearful Skin no wounds General Skin Exam: Negative for jaundice or pallor Lesions: no lesions Rashes: no rashes Trauma: Negative for abrasion Nails: Negative for discolored MDM MDM MDM Narrative Medical decision making narrative: 50-year-old female upper abdominal pain history of pancreatitis. CAT scan and labs to be obtained. This could be pancreatitis versus gastritis versus other etiologies. She has had her gallbladder out. Clinically does not look like an appendicitis or bowel obstruction. She is not having any urinary symptoms. Should be treated with IV fluids, morphine and Zofran. Repeat exam around 12:50 PM patient doing well. Still having pain show given additional morphine and Zofran. We discussed her test results and her diagnosisof acute on chronic pancreatitis. I have the hospitalist on page for admission. Patient is comfortable with the plan. History & Record Review Discussion w/independent historian: Patient and Family Additional record(s) reviewed:: Prior inpatient record, Prior outpatient record,Prior ED visit and Prior labs Lab Data Attestation: I reviewed the patient's lab results. Lab results narrative: CBC shows a white count of 7. H&H 13 and 38. Platelets 150. Electrolytes show potassium 3.0. Gap 19. BUN and creatinine is six 0.309. Glucose 120. Liver enzymes show slightly elevated AST and ALT. Lipase is elevated 3000. Amylase is elevated 898. Urinalysis showed no white or red cells. No bacteria or nitrates. CAT scan consistent with chronic pancreatitis. Labs: Laboratory Results - last 24 hr 07/17/25 07/17/25 07/17/25 10:35 11:30 12:00 WBC 7.0 RBC 3.90 L Hgb 13.2 Hct 38.5 MCV 98.7 MCH 33.8 H MCHC 34.3 RDW Std Deviation 56.5 H RDW Coeff of Braxton 15.9 H Plt Count 150 MPV 9.7 Immature Gran % (Auto) 0.600 Neut % (Auto) 80.3 H Lymph % (Auto) 11.2 L [place] % (Auto) 7.2 Eos % (Auto) 0.3 Baso % (Auto) 0.4 Absolute Neuts (auto) 5.6 Absolute Lymphs (auto) 0.78 L Nucleated RBC % 0 Sodium 144 Potassium 3.0 L Chloride 99 Carbon Dioxide 25.6 Anion Gap 19 H BUN 6 Creatinine 0.39 L Estim Creat Clear Calc 152.33 Est GFR (MDRD) Non-Af 123 BUN/Creatinine Ratio 15.5 Glucose 120 H Calcium 8.6 Total Bilirubin 0.43 AST 165 H ALT 92 H Alkaline Phosphatase 98 Total Protein 6.6 Albumin 3.9 Globulin 2.7 Albumin/Globulin Ratio 1.4 Amylase 898 H Lipase > 3000 H Urine Color Yellow Urine Clarity Clear Urine pH 6.5 Ur Specific Hawley 1.010 Urine Protein 30 H Urine Glucose (UA) Normal Urine Ketones 5 H Urine Occult Blood 10 H Urine Nitrite Negative Urine Bilirubin Negative Urine Urobilinogen Normal Ur Leukocyte Esterase 25 H Urine RBC 0 SEEN Urine WBC 0 SEEN Ur Squamous Epith Cells 0-5 SEEN Urine Bacteria 0 SEEN Urine Mucus 0 SEEN Ethyl Alcohol 34.9 H Radiography Diagnostic Testing: Clinical Impression(s) from Imaging Studies Abdomen/Pelvis CT 08/19/25 11:09 IMPRESSION: 1. Acute on chronic, uncomplicated, interstitial edematous pancreatitis. 2. Cholecystectomy. No biliary duct dilation. 3. Mild liver enlargement. Very severe fatty infiltration. 4. Small volume free fluid in the cul-de-sac is reactive. Small free fluid in the retroperitoneum related to the pancreatitis. Reading Location: [facility] Discharge Plan Triage Chief Complaint: Abd Pain ED Provider: Francisco Colon Dx/Rx/DC Orders Clinical Impression: Abdominal pain, Acute alcoholic pancreatitis, History of diabetes mellitus Prescriptions: No Action metformin 500 mg tablet [...] 10 mg Tablet 10 mg PO DAILY pantoprazole 40 mg tablet,delayed release (DR/EC) 40 mg PO BID lisinopril 40 mg tablet 40 mg PO DAILY levocetirizine 5 mg tablet 5 mg PO DAILY fluoxetine 40 mg capsule 40 mg PO DAILY metoprolol succinate 25 mg tablet extended release 24 hr 25 mg PO DAILY Jardiance 25 mg tablet 25 mg PO DAILY buspirone 5 mg tablet 5 mg PO TID PRN (Reason: anxiety) amlodipine 5 mg tablet 5 mg PO DAILY hydroxyzine HCl 10 mg tablet 10 mg PO TID PRN PRN (Reason: anxiety) budesonide-formoterol 160-4.5 mcg/actuation HFA aerosol inhaler 2 puff INHALATION BID glimepiride 4 mg tablet 4 mg PO DAILY Qty: 30 0RF atorvastatin 40 mg tablet 40 mg PO DAILY Qty: 30 6RF Primary Care Provider: Abisai Haley Referrals: Abisai Haley MD [Primary Care Provider] - Print Language: Fijian Disposition Disposition: Acute Care Hospital [facility] What to do if you have Problems For any increased pain, shortness of breath, bleeding, nausea or vomiting, chestpain, or any unexpected problems, contact your Primary Care Provider. Call [facility] ([phone]) or report to the closest Emergency Room. Call 911 if necessary. 07/17/25 1513 <Electronically signed by Francisco Colon MD> Cosigner Signature (if applicable): CC: Dr. Abisai Haley MD ~ Signed [facility] Work Phone: [phone]) 132-727408-19-2025 History and physical note Author Canelo Myers [facility] Note Date/Time July 17, 2025 1: 22pm [facility] Medical Records Department [address] [place] [address] H&P Exam - Hospitalist 07/17/25 1304 MR#: [id number] Acct: [id number] Name: JOSEPH RINCON Rep #:[id number] : 1975 50 From: Canelo Myers MD PCP: Dr. Abisai Haley MD Status:ADM IN Location: [facility] [id number] HPI - General General Date of Admission: 07/17/25 Date of Service: 07/17/25 Chief Complaint: Abdominal pain HPI Narrative JOSEPH RINCON, is a 50 F who presents presented with abdominal pain. Patient has history significant for chronic alcohol dependence for which patient has been admitted on several occasions for alcohol-related issues including previouspancreatitis as well as alcohol withdrawal. Patient reported having relapse following her recent admission for acute alcohol withdrawal and pancreatitis after her passed. Her last drink was on the night prior to coming in. Patient symptoms started a day prior to coming in. Pain was located in the epigastric region wrapping around to the back became more intense on the morningof her presentation necessitating patient presented to the emergency department. Lipase levels on admission was greater than 3000. An assessment of acute alcohol induced pancreatitis made admitted to regular nursing floor for further manage [facility] Medical History Admitted to alcohol detoxification center Pancreatitis Hypokalemia Nausea & vomiting Intractable abdominal pain Strain of left foot Plantar fasciitis of [...] mg PO DAILY Unknown History extended release montelukast 10 mg tablet 10 mg PO DAILY 04/09/23 Unkn own History (Singulair) pantoprazole 40 mg tablet,delayed 40 mg PO BID 3 Unknown History release cholecalciferol (vitamin D3) 50 50 mcg PO DAILY Unknown History mcg (2,000 unit) capsule magnesium 250 mg tablet 250 mg PO DAILY 08/25/23 Unk nown History albuterol sulfate 90 mcg/actuation 2 puff inhalation [...] 5 mg tablet 5 mg PO TID PRN anxiety 06/22 Unknown History hydroxyzine HCl 10 mg tablet 10 mg PO TID PRN PRN anxi ety 04/04/25 Unknown History levocetirizine 5 mg tablet 5 mg PO DAILY 04/11/25 Unkn own History lisinopril 40 mg tablet 40 mg PO DAILY 04/11/25 Unkn own History atorvastatin 40 mg tablet 40 mg PO DAILY #30 tabs 03/29 08/23 Unknown Rx budesonide-formoterol HFA 160 2 puff inhalation BID SO B 04/26/25 Unknown History mcg-4.5 mcg/actuation aerosol inhaler glimepiride 4 mg tablet 4 mg PO DAILY #30 tabs 05/06 Unknown Rx fluoxetine 40 mg capsule 40 mg PO DAILY 07/17/25 Unkn own History Allergy/AdvReac Type Severity Reaction Status Date / Time No Known Allergies Allergy Verified 07/17/25 10:16 Family History Grandfather CVA (cerebral vascular accident) Diabetes Mother Cancer Father Hypertension Grandmother Hypertension Diabetes Surgical History History of cholecystectomy H/O tooth extraction plantar fasciitis release Social History household members: spouse and children housing: house pets and animals: Yes Smoking Status: Light Smoker (<10/day) alcohol intake: current alcohol intake frequency: 3 or more drinks per day Alcohol type: hard liquor details: At least 1/5 vodka daily, recently increased EtOH intake. substance use type: does not use ROS ROS Narrative GENERAL: denies fever, chills, night sweats, weight loss, anorexia HEENT: denies headache, sinus congestion, or drainage, dysphagia RESPIRATORY: denies cough, sputum production, shortness of breath, dyspnea on exertion CARDIAC: denies chest pain, palpitations, orthopnea, PND GASTROINTESTINAL: Abdominal pain and nausea GENITOURINARY: denies dysuria, urgency, frequency, heamaturia EXTREMITY: denies swelling MUSCULOSKELETAL: denies current joint pain or tenderness NEUROLOGIC: denies focal numbness, weakness, tingling HEMATOLOGIC: denies easy bruising and/or hemorrhage INTEGUMENT: denies rashes PSYCHIATRIC: denies suicidal or homicidal ideation Vital Signs Vital Signs Vital Signs: 07/17/25 10:14 07/17/25 10:33 07/17/25 12:13 Temperature 98.8 F 98.8 F Temperature Source Oral Oral Pulse Rate 110 H 110 H 86 Respiratory Rate 18 18 16 Blood Pressure 161/105 H 161/105 H 148/65 H Blood Pressure Mean 123 123 92 Pulse Ox 96 96 100 Oxygen Delivery Method Room Air Room Air Room Air Weight Weight: 54.93 kg Body Mass Index (BMI) 20.7 Physical Exam Narrative GENERAL: cooperative but tremulous at rest HEENT: Atraumatic; normocephalic EYES; Anicteric, Normal Conjunctiva NECK; supple, normal thyroid, RESPIRATORY: Diminished to auscultation CARDIOVASCULAR: Regular S1 S2, GI: soft, normoactive bowel sounds, : No Renal angle tenderness; EXTREMITIES: No edema, no clubbing, MUSCULOSKELETAL: no muscle wasting NEURO: Awake; no lateralizing signs. SKIN: No Rash PSYCH; Flat affect Results Lab / Micro Data 07/17/25 10:35 07/17/25 10:35 Labs: Laboratory Results - last 24 hr 07/17/25 10:35: WBC 7.0, RBC 3.90 L, Hgb 13.2, Hct 38.5, MCV 98.7, MCH 33.8 H, MCHC 34.3, RDW Std Deviation 56.5 H, RDW Coeff of Braxton 15.9 H, Plt Count 150, MPV9.7, Immature Gran % (Auto) 0.600, Neut % (Auto) 80.3 H, Lymph % (Auto) 11.2 L, [place] % (Auto) 7.2, Eos % (Auto) 0.3, Baso % (Auto) 0.4, Absolute Neuts (auto) 5.6, Absolute Lymphs (auto) 0.78 L, Nucleated RBC % 0, Sodium 144, Potassium 3.0L, Chloride 99, Carbon Dioxide 25.6, Anion Gap 19 H, BUN 6, Creatinine 0.39 L, Estim Creat Clear Calc 152.33, Est GFR (MDRD) Non-Af 123, BUN/Creatinine Ratio 15.5, Glucose 120 H, Calcium 8.6, Total Bilirubin 0.43, AST 165 H, ALT 92 H, Alkaline Phosphatase 98, Total Protein 6.6, Albumin 3.9, Globulin 2.7, Albumin/Globulin Ratio 1.4, Amylase 898 H, Lipase > 3000 H 07/17/25 11:30: Serum , Qual NEGATIVE, Ethyl Alcohol 34.9 H 07/17/25 12:00: Urine Color Yellow, Urine Clarity Clear, Urine pH 6.5, Ur Specific Hawley 1.010, Urine Protein 30 H, Urine Glucose (UA) Normal, Urine Ketones 5 H, Urine Occult Blood 10 H, Urine Nitrite Negative, Urine Bilirubin Negative, Urine Urobilinogen Normal, Ur Leukocyte Esterase 25 H, Urine RBC 0 SEEN, Urine WBC 0 SEEN, Ur Squamous Epith Cells 0-5 SEEN, Urine Bacteria 0 SEEN,Urine Mucus 0 SEEN Imaging Radiology Impression Abdomen/Pelvis CT 07/17/25 11:09 IMPRESSION: 1. Acute on chronic, uncomplicated, interstitial edematous pancreatitis. 2. Cholecystectomy. No biliary duct dilation. 3. Mild liver enlargement. Very severe fatty infiltration. 4. Small volume free fluid in the cul-de-sac is reactive. Small free fluid in the retroperitoneum related to the pancreatitis. Reading Location: [id number] Assessment & Plan Assessment/Plan (1) Acute alcoholic pancreatitis: PLAN: Plan Patient is a 50-year-old lady with history of alcohol dependence, prior episodesof pancreatitis who presented with abdominal pain. Patient was found to have elevated lipase level consistent with acute pancreatitis admitted to regular nursing floor for further 1. Acute on chronic pancreatitis ? Patient has been admitted to a monitored bed for symptom management including IV fluids, pain meds as well as antinausea medication.. Patient lipase level markedly elevated on admission greater than 3000 repeat levels ordered in a.m. 2. Alcohol withdrawal ? Patient was started on CIWA protocol placed on phenobarb taper. Patient was counseled on the need for cessation. She plans to follow-up with her MAT following this 3. Hypokalemia ? Patient started on potassium replacement repeat labs ordered in a.m. for follow-up 4. Acute alcoholic hepatitis ? Following with serial LFTs in a.m. 5. Acute hypertensive urgency ? Patient blood pressure markedly elevated on admission her pain may be contributing to the elevated blood pressure did continue with home meds ordered hydralazine as needed for systolic blood pressure greater than 160 6. Dyslipidemia ?Patient is on statin therapy, continued at home dose 7. COPD ? Currently not in exacerbation aerosol treatments as needed 8. Diabetes mellitus type II -patient's oral hypoglycemics held. Placed on long acting insulin, Accu-Cheks a.c. and at bedtime and covered with sliding scale insulin 9. GERD ? Patient is on Protonix 40 mg twice daily?continue home 10. Tobacco dependence ? Counseled on cessation, offered nicotine patch for tobacco cravings 11. Depression with anxiety ? Patient is on citalopram bupropion as well as buspirone held buspirone continue with the 12. Severe malnutrition. Related to: inadequate oral intake; As evidenced by: 10% unintentional weight loss x <1 month and PO meeting <50% of estimated nutrition needs x 1 month. Consult placed to dietitian ?13. DVT prophylaxis ? On enoxaparin Time spent in the patient's overall evaluation,decision-making process, review of diagnostic data, adjustment of management, discussion with other providers, nursing nursing and ancillary staff involved in patient's care documentation, 75minutes Charges/Coding Multi Select Codes Visit Charges Visit Charges: 76690 Init Hosp L3 07/17/25 1322 <Electronically signed by Canelo Myers MD> Cosigner Signature (if applicable): CC: Dr. Abisai Haley MD; Dr. Canelo Myers MD~ Signed [facility] Work Phone: 1(484) 861-503008-19-2025 Radiology Diagnostic study [facility]06-30-2025 Consult note [facility] Medical Records Department [address] [place] [address] Counseling Note - Pharmacy 05/28/25 1332 MR#: [id number] Acct: [id number] Name: JOSEPH RINCON Rep #:[id number] : 1975 50 From: Sho Leyva PCP: Dr. Abisai Haley MD Status:ADM IN Location: [place] [address] Pharmacy [place] Med Reconciliation Pharmacy Service has performed discharge medication reconciliation for this patient. The patient's discharge medication list was reviewed for discrepancies and discrepancies were resolved. Medications at Discharge Home Medications metformin 500 mg tablet 500 ea PO BID DIABETES 10/31/22 aspirin 81 mg chewable tablet 81 mg PO DAILY@0800 #30 tabs 11/19/22 bupropion HCl 150 mg 24 hr tablet, extended release 150 mg PO DAILY 01/21/23 montelukast 10 mg tablet (Singulair) 10 mg PO DAILY 04/09/23 pantoprazole 40 mg tablet,delayed release 40 mg PO BID 05/04/23 cholecalciferol (vitamin D3) 50 mcg (2,000 unit) capsule 50 mcg PO DAILY 08/25/23 magnesium 250 mg tablet 250 mg PO DAILY 08/25/23 albuterol sulfate 90 mcg/actuation aerosol inhaler 2 puff inhalation Q6H PRN shortness of breath orwheezing #8.5 grams 04/27/24 empagliflozin 25 mg tablet (Jardiance) 25 mg PO DAILY 11/12/24 metoprolol succinate 25 mg tablet,extended release 24 hr 25 mg PO DAILY 11/12/24 amlodipine 5 mg tablet 5 mg PO DAILY 04/04/25 buspirone 5 mg tablet 5 mg PO TID PRN anxiety 04/04/25 hydroxyzine HCl 10 mg tablet 10 mg PO TID PRN PRN anxiety 04/04/25 citalopram 40 mg tablet 40 mg PO DAILY 04/11/25 levocetirizine 5 mg tablet 5 mg PO DAILY 04/11/25 lisinopril 40 mg tablet 40 mg PO DAILY 04/11/25 atorvastatin 40 mg tablet 40 mg PO DAILY #30 tabs 04/16/25 budesonide-formoterol HFA 160 mcg-4.5 mcg/actuation aerosol inhaler 2 puff inhalation BID SOB 04/26/25 glimepiride 4 mg tablet 4 mg PO DAILY #30 tabs 05/06/25 05/28/25 1332 Date _ Sho Wooten Signature (if applicable): Date CC: ~ Signed [facility]06-30-2025 Hospital Discharge instructionsAdditional Instructions Follow up with outpatient detox (180) as directed Date of Discharge: 05/28/25[facility] Work Phone: 1(955) 511-620206-30-2025 Discharge summary [facility] Medical Records Department [address] [place] [address] Discharge Summary 05/28/25 1313 MR#: [id number] Acct: [id number] Name: JOSEPH RINCON Rep #:[id number] : 1975 50 From: Mao Becker DO PCP: Dr. Abisai Haley MD Status:ADM IN Location: [facility] [id number] Providers Date of Admission: 05/25/25 Date of Discharge: 05/28/25 Primary Care Physician: Abisai Haley MD Reason For Visit: ETOH DETOXIFICATION, WITHDRAWL Diagnosis Discharge Diagnosis (1) Admitted to alcohol detoxification center: Status: Acute Plan 1. 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 #2 hypomagnesemia-magnesium supplementation is being given to the patient, her magnesium level today was #3 essential hypertension-patient will remain on her present medication #4 hyperlipidemia-patient is on a statin #5 type 2 diabetes-patient's blood sugars will be monitored, sliding scale insulin will be given asnecessary Total clinical time spent by myself addressing the patient's medical issues, reviewing all of her data, and collaborating with patient's care team: 35-minute Medications at Discharge Home Medications metformin 500 mg tablet 500 ea PO BID DIABETES 10/31/22 aspirin 81 mg chewable tablet 81 mg PO DAILY@0800 #30 tabs 11/19/22 bupropion HCl 150 mg 24 hr tablet, extended release 150 mg PO DAILY 01/21/23 montelukast 10 mg tablet (Singulair) 10 mg PO DAILY 04/09/23 pantoprazole 40 mg tablet,delayed release 40 mg PO BID 05/04/23 cholecalciferol (vitamin D3) 50 mcg (2,000 unit) capsule 50 mcg PO DAILY 08/25/23 magnesium 250 mg tablet 250 mg PO DAILY 08/25/23 albuterol sulfate 90 mcg/actuation aerosol inhaler 2 puff inhalation Q6H PRN shortness of breath orwheezing #8.5 grams 04/27/24 empagliflozin 25 mg tablet (Jardiance) 25 mg PO DAILY 11/12/24 metoprolol succinate 25 mg tablet,extended release 24 hr 25 mg PO DAILY 11/12/24 amlodipine 5 mg tablet 5 mg PO DAILY 04/04/25 buspirone 5 mg tablet 5 mg PO TID PRN anxiety 04/04/25 hydroxyzine HCl 10 mg tablet 10 mg PO TID PRN PRN anxiety 04/04/25 citalopram 40 mg tablet 40 mg PO DAILY 04/11/25 levocetirizine 5 mg tablet 5 mg PO DAILY 04/11/25 lisinopril 40 mg tablet 40 mg PO DAILY 04/11/25 atorvastatin 40 mg tablet 40 mg PO DAILY #30 tabs 04/16/25 budesonide-formoterol HFA 160 mcg-4.5 mcg/actuation aerosol inhaler 2 puff inhalation BID SOB 04/26/25 glimepiride 4 mg tablet 4 mg PO DAILY #30 tabs 05/06/25 Hospital Course Operations None Procedures None Summary of Care Provided Minutes Spent on Discharge: 31 Hospital Course: This 50-year-old white female was seen in the emergency room at [facility] for alcohol detox. She had been admitted previously only several weeks ago for pancreatitis and alcohol withdrawal and had already gone through the program at that time. Her toxicology screen was positive for barbiturates and benzodiazepines, but alcohol level was 312. Patient was [facility], orders were entered using the alcohol detox order set and she was seen by addiction secondary social studies teacher. Patient had minimal withdrawal symptoms to hospitalization and there was no evidence of DTs. On 05/28/2025, patient was seen and examined: On examination he appeared in good health and spirits. Vital signs as documented. Skin warm and dry and without overt rashes. Neck without JVD, neckwas supple, trachea midline, thyroid was normal. Lungs clear bilaterally, normal air movement was noted. Heart exam notable for regular rhythm, normal sounds and absence of murmurs, rubs or gallops. Abdomen unremarkable and without evidence of organomegaly, masses, or abdominal aortic enlargement. Bowel sounds are present, abdomen is not distended. Extremities nonedematous, no cyanosis was noted,no clubbing was noted. Neuro: Cranial nerves II through XII are grossly intact, no focal motor deficits were noted, sensation to light touch and pinprick intact, motor exam 5/5 throughout. Psych: Patient is alert and oriented x3, he does not appear anxious or depressed, he does not appear agitated.Patient was discharged home in stable condition on 05/28/2025 Weight / BMI Weight Weight: 56.7 kg Body Mass Index (BMI) 21.4 ABG / Lab / Microbiology Data 05/24/25 23:45 05/24/25 23:45 Laboratory: Laboratory Results - last 24 hr 05/27/25 16:01: POC Glucose 179 H 05/27/25 21:31: POC Glucose 217 H 05/28/25 06:30: POC Glucose 164 H 05/28/25 10:54: POC Glucose 259 H D/C Instructions Discharge Diet: 1800 Calorie Control Diet Weight Bearing Status: Full weight bearing DC O2, CPAP, BIPAP Needs Home O2 Discharge instructions: No Meaningful Use Info Meaningful Use Meaningful Use Diagnoses (Choose all that apply): None applicable Ischemic Stroke Statin Dosing Therapy Reference: STATIN DOSE THERAPY REFERENCE: * Patients > 75 years receive moderate or high dose statin therapy. * Patients 75 years or YOUNGER should receive HIGH intensity statin dose unless contraindicated. You will be required to document reason for non-treatment if statin daily dose does not meet guidelines. HIGH DOSE STATIN THERAPY DAILY Atorvastatin > than or = to 40 mg Rosuvastatin > than or = to 20 mg Amlodipine + Atorvastatin > than or = to 2.5/40 mg Ezetimibe + Simvastatin 10/80 mg Simvastatin 80mg Discharge Plan Admission Admit Date/Time: 05/25/25 00:33 Primary Reason for Your Visit: alcohol detox Attending Provider: Mao Becker Primary Care Provider: Abisai Haley Consulting Providers: Myra Null Instructions Additional Instructions / Restrictions: Follow up with outpatient detox (180) as directed Discharge Orders/Prescriptions Prescriptions: Continued metformin 500 mg tablet 500 ea [...] 10 mg Tablet 10 mg PO DAILY pantoprazole 40 mg tablet,delayed release (DR/EC) 40 mg PO BID citalopram 40 mg tablet 40 mg PO DAILY lisinopril 40 mg tablet 40 mg PO DAILY levocetirizine 5 mg tablet 5 mg PO DAILY metoprolol succinate 25 mg tablet extended release 24 hr 25 mg PO DAILY Jardiance 25 mg tablet 25 mg PO DAILY buspirone 5 mg tablet 5 mg PO TID PRN (Reason: anxiety) amlodipine 5 mg tablet 5 mg PO DAILY hydroxyzine HCl 10 mg tablet 10 mg PO TID PRN PRN (Reason: anxiety) budesonide-formoterol 160-4.5 mcg/actuation HFA aerosol inhaler 2 puff INHALATION BID glimepiride 4 mg tablet 4 mg PO DAILY Qty: 30 0RF atorvastatin 40 mg tablet 40 mg PO DAILY Qty: 30 6RF Referrals / Follow Up: Abisai Haley MD [Primary Care Provider] - Disposition Disposition (needs filled in before D/C Order can be placed): Home, Self Care Charges/Coding Visit Charges Inpatient E&M: 61175 Disch Hosp >30min 05/28/25 1316 Cosigner Signature (if applicable): CC: Dr. Abisai Haley MD; Dr. Mao Becker DO~ Signed [facility]06-30-2025 [facility]06-30-2025 Discharge summary [facility] Medical Records Department [address] [place] [address] Instructions for Home/Discharge Instructions 05/28/25 1020 MR#: [id number] Acct: [id number] Name: JOSEPH RINCON Rep #:[id number] : 1975 50 From: Mao Becker DO [...] if applicable. Discharge Plan Admission Admit Date/Time: 05/25/25 00:33 Primary Reason for Your Visit: alcohol detox Attending Provider: Mao Becker Primary Care Provider: Abisai Haley Consulting Providers: Myra Null Instructions Additional Instructions / Restrictions: Follow up with outpatient detox (180) as directed Discharge Orders/Prescriptions Prescriptions: Continued metformin 500 mg tablet 500 ea [...] 10 mg Tablet 10 mg PO DAILY pantoprazole 40 mg tablet,delayed release (DR/EC) 40 mg PO BID citalopram 40 mg tablet 40 mg PO DAILY lisinopril 40 mg tablet 40 mg PO DAILY levocetirizine 5 mg tablet 5 mg PO DAILY metoprolol succinate 25 mg tablet extended release 24 hr 25 mg PO DAILY Jardiance 25 mg tablet 25 mg PO DAILY buspirone 5 mg tablet 5 mg PO TID PRN (Reason: anxiety) amlodipine 5 mg tablet 5 mg PO DAILY hydroxyzine HCl 10 mg tablet 10 mg PO TID PRN PRN (Reason: anxiety) budesonide-formoterol 160-4.5 mcg/actuation HFA aerosol inhaler 2 puff INHALATION BID glimepiride 4 mg tablet 4 mg PO DAILY Qty: 30 0RF atorvastatin 40 mg tablet 40 mg PO DAILY Qty: 30 6RF Referrals / Follow Up: Abisai Haley MD [Primary Care Provider] - Disposition Disposition (needs filled in before D/C Order can be placed): Home, Self Care 05/28/25 1249Mao Becker DO CC: Dr. Myra Null MD; Dr. Abisai Haley MD ~ Signed [facility]06-30-2025 Discharge summary Author [facility] Note Date/Time May 28, 2025 12:4 9pm [facility] Medical Records Department [address] [place] [address] Instructions for Home/Discharge Instructions 05/28/25 1020 MR#: [id number] Acct: [id number] Name: JOSEPH RINCON Rep #:[id number] : 1975 50 From: Mao Becker DO [...] if applicable. Discharge Plan Admission Admit Date/Time: 05/25/25 00:33 Primary Reason for Your Visit: alcohol detox Attending Provider: Mao Becker Primary Care Provider: Abisai Haley Consulting Providers: Myra Null Instructions Additional Instructions / Restrictions: Follow up with outpatient detox (180) as directed Discharge Orders/Prescriptions Prescriptions: Continued metformin 500 mg tablet 500 ea [...] 10 mg Tablet 10 mg PO DAILY pantoprazole 40 mg tablet,delayed release (DR/EC) 40 mg PO BID citalopram 40 mg tablet 40 mg PO DAILY lisinopril 40 mg tablet 40 mg PO DAILY levocetirizine 5 mg tablet 5 mg PO DAILY metoprolol succinate 25 mg tablet extended release 24 hr 25 mg PO DAILY Jardiance 25 mg tablet 25 mg PO DAILY buspirone 5 mg tablet 5 mg PO TID PRN (Reason: anxiety) amlodipine 5 mg tablet 5 mg PO DAILY hydroxyzine HCl 10 mg tablet 10 mg PO TID PRN PRN (Reason: anxiety) budesonide-formoterol 160-4.5 mcg/actuation HFA aerosol inhaler 2 puff INHALATION BID glimepiride 4 mg tablet 4 mg PO DAILY Qty: 30 0RF atorvastatin 40 mg tablet 40 mg PO DAILY Qty: 30 6RF Referrals / Follow Up: Abisai Haley MD [Primary Care Provider] - Disposition Disposition (needs filled in before D/C Order can be placed): Home, Self Care 05/28/25 1748<Electronically signed by Mao Becker DO>Mao Becker DO CC: Dr. Myra Null MD; Dr. Abisai Haley MD ~ Signed [facility] Work Phone: 1(486) 646-102406-29-2025 Progress note Author Mao [facility] Note Date/Time May 27, 2025 3:33 pm [facility] Medical Records Department [address] [place] [address] Progress Note - Hospitalist 05/27/25 1531 MR#: [id number] Acct: [id number] Name: JOSEPH RINCON Rep #:[id number] : 1975 50 From: Mao Becker DO PCP: Dr. Abisai Haley MD Status:ADM IN Location: [facility] OW756-7 Subjective Subjective Patient was seen and examined today, she asked me when I felt she could go home,I told her I would reduce her phenobarbital and reevaluate her tomorrow morning. Objective Data Objective Data Vital Signs: Vital Signs Temp Pulse Resp BP Pulse Ox O2 Del Method O2 Flow Rate 98 F 76 16 130/71 H 98 Room Air 2 05/27/25 15:03 05/27/25 15:03 05/27/25 15:03 05/27/25 15:03 05/27/25 15:03 05/27/25 15:03 05/27/25 08:08 Oxygen Flow Rate (L/min) 2 Oxygen Delivery Method Room Air Weight: 56.7 kg Body Mass Index (BMI) 21.4 Intake & Output: Intake and Output for Last 24 Hours 05/25/25 05/26/25 05/27/25 23:59 23:59 23:59 Intake Total 2099 100 / 100 Balance 2099 100 / 100 Lab / Micro Data 05/24/25 23:45 05/24/25 23:45 Labs: Laboratory Results - last 24 hr 05/26/25 15:33: POC Glucose 221 H 05/26/25 20:16: POC Glucose 243 H 05/27/25 04:48: Magnesium 1.7 05/27/25 06:28: POC Glucose 133 H 05/27/25 11:02: POC Glucose 246 H Physical Exam Narrative alert, oriented x3 and no apparent distress General Appearance: cooperative, well kempt and well developed Orientation / Consciousness: awake, oriented to person, oriented to place and oriented to time HEENT normocephalic, head/scalp atraumatic and moist oral mucous membranes Eyes PERRL, EOMs intact bilaterally and conjunctivae normal Neck supple, no JVD, thyroid normal and no carotid bruits General: trachea midline Resp normal respiratory effort, no retractions, no use of accessory muscles and clearto auscultation bilaterally Auscultation: Negative for rales, rhonchi or wheezes Cardio regular rate, regular rhythm, S1 normal heart sound, S2 normal heart sound, no murmurs, no rub and no gallops GI normal to inspection, nondistended, normoactive bowel sounds, soft to palpation,non-tender and non-distended Extremity no clubbing, cyanosis or edema Skin no rashes or lesions noted General Skin Exam: no breakdown Neuro oriented x3, CN's II-XII intact bilaterally, moves all extremities, no focal motor deficits and no sensory deficits noted Sensorium / Orientation: awake and alert Speech: speech normal Psych affect normal Assessment & Plan Assessment/Plan (1) Admitted to alcohol detoxification center: PLAN: Plan 1. 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 #2 hypomagnesemia-magnesium supplementation is being given to the patient, her magnesium level today was #3 essential hypertension-patient will remain on her present medication #4 hyperlipidemia-patient is on a statin #5 type 2 diabetes-patient's blood sugars will be monitored, sliding scale insulin will be given as necessary Total clinical time spent by myself addressing the patient's medical issues, reviewing all of her data, and collaborating with patient's care team: 35-minute Charges/Coding Visit Charges Inpatient E&M: 87967 Subs Hosp L2 05/27/25 1533 <Electronically signed by Mao Becker DO> Cosigner Signature (if applicable): CC: ~ Signed [facility] Work Phone: 1(297) 148-317106-29-2025 Progress note [facility] Medical Records Department [address] [place] [address] Progress Note - Hospitalist 05/27/25 1531 MR#: [id number] Acct: [id number] Name: JOSEPH RINCON Rep #:[id number] : 1975 50 From: Mao Becker DO PCP: Dr. Abisai Haley MD Status:ADM IN Location: [facility] LD898-1 Subjective Subjective Patient was seen and examined today, she asked me when I felt she could go home,I told her I would reduce her phenobarbital and reevaluate her tomorrow morning. Objective Data Objective Data Vital Signs: Vital Signs Temp Pulse Resp BP Pulse Ox O2 Del Method O2 Flow Rate 98 F 76 16 130/71 H 98 Room Air 2 05/27/25 15:03 05/27/25 15:03 05/27/25 15:03 05/27/25 15:03 05/27/25 15:03 05/27/25 15:03 05/27/25 08:08 Oxygen Flow Rate (L/min) 2 Oxygen Delivery Method Room Air Weight: 56.7 kg Body Mass Index (BMI) 21.4 Intake & Output: Intake and Output for Last 24 Hours 05/25/25 05/26/25 05/27/25 23:59 23:59 23:59 Intake Total 2099 / 2099 100 / 100 Balance 2099 100 / 100 Lab / Micro Data 05/24/25 23:45 05/24/25 23:45 Labs: Laboratory Results - last 24 hr 05/26/25 15:33: POC Glucose 221 H 05/26/25 20:16: POC Glucose 243 H 05/27/25 04:48: Magnesium 1.7 05/27/25 06:28: POC Glucose 133 H 05/27/25 11:02: POC Glucose 246 H Physical Exam Narrative alert, oriented x3 and no apparent distress General Appearance: cooperative, well kempt and well developed Orientation / Consciousness: awake, oriented to person, oriented to place and oriented to time HEENT normocephalic, head/scalp atraumatic and moist oral mucous membranes Eyes PERRL, EOMs intact bilaterally and conjunctivae normal Neck supple, no JVD, thyroid normal and no carotid bruits General: trachea midline Resp normal respiratory effort, no retractions, no use of accessory muscles and clearto auscultation bilaterally Auscultation: Negative for rales, rhonchi or wheezes Cardio regular rate, regular rhythm, S1 normal heart sound, S2 normal heart sound, no murmurs, no rub and no gallops GI normal to inspection, nondistended, normoactive bowel sounds, soft to palpation,non-tender and non-distended Extremity no clubbing, cyanosis or edema Skin no rashes or lesions noted General Skin Exam: no breakdown Neuro oriented x3, CN's II-XII intact bilaterally, moves all extremities, no focal motor deficits and no sensory deficits noted Sensorium / Orientation: awake and alert Speech: speech normal Psych affect normal Assessment & Plan Assessment/Plan (1) Admitted to alcohol detoxification center: PLAN: Plan 1. 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 #2 hypomagnesemia-magnesium supplementation is being given to the patient, her magnesium level today was #3 essential hypertension-patient will remain on her present medication #4 hyperlipidemia-patient is on a statin #5 type 2 diabetes-patient's blood sugars will be monitored, sliding scale insulin will be given asnecessary Total clinical time spent by myself addressing the patient's medical issues, reviewing all of her data, and collaborating with patient's care team: 35-minute Charges/Coding Visit Charges Inpatient E&M: 24912 Subs Hosp L2 05/27/25 1533 Cosigner Signature (if applicable): CC: ~ Signed [facility]06-28-2025 Progress note Author Mao [facility] Note Date/Time May 26, 2025 1:39 pm [facility] Medical Records Department [address] [place] [address] Progress Note - Hospitalist 05/26/25 1335 MR#: [id number] Acct: [id number] Name: JOSEPH RINCON Rep #:[id number] : 1975 50 From: Mao Becker DO PCP: Dr. Abisai Haley MD Status:ADM IN Location: [place] [address]-1 Subjective Subjective Patient was seen and examined today, her magnesium is low and she appears to be sleepy. She has no specific complaints today. Objective Data Objective Data Vital Signs: Vital Signs Temp Pulse Resp BP Pulse Ox O2 Del Method O2 Flow Rate 97.4 F L 80 16 117/72 94 Room Air 1 05/26/25 11:25 05/26/25 11:25 05/26/25 11:25 05/26/25 11:25 05/26/25 11:25 05/26/25 11:05/25/25 18:25 Oxygen Flow Rate (L/min) 1 Oxygen Delivery Method Room Air Weight: 56.7 kg Body Mass Index (BMI) 21.4 Intake & Output: Intake and Output for Last 24 Hours 05/24/25 05/25/25 05/26/25 23:59 23:59 23:59 Intake Total 2099 Balance 2099 Lab / Micro Data 05/24/25 23:45 05/24/25 23:45 Labs: Laboratory Results - last 24 hr 05/25/25 16:15: POC Glucose 187 H 05/25/25 20:48: POC Glucose 182 H 05/26/25 06:14: POC Glucose 119 H 05/26/25 09:30: Magnesium 1.3 L 05/26/25 10:54: POC Glucose 293 H Physical Exam Const alert, oriented x3 and no apparent distress General Appearance: cooperative, well kempt and well developed Orientation / Consciousness: awake, oriented to person, oriented to place and oriented to time HEENT normocephalic, head/scalp atraumatic and moist oral mucous membranes Eyes PERRL, EOMs intact bilaterally and conjunctivae normal Neck supple, no JVD, thyroid normal and no carotid bruits General: trachea midline Resp normal respiratory effort, no retractions, no use of accessory muscles and clearto auscultation bilaterally Auscultation: Negative for rales, rhonchi or wheezes Cardio regular rate, regular rhythm, S1 normal heart sound, S2 normal heart sound, no murmurs, no rub and no gallops GI normal to inspection, nondistended, normoactive bowel sounds, soft to palpation,non-tender and non-distended Extremity no clubbing, cyanosis or edema Skin no rashes or lesions noted General Skin Exam: no breakdown Neuro oriented x3, CN's II-XII intact bilaterally, moves all extremities, no focal motor deficits and no sensory deficits noted Sensorium / Orientation: awake and alert Speech: speech normal Psych affect normal Assessment & Plan Assessment/Plan (1) Admitted to alcohol detoxification center: PLAN: Plan 1. 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 #2 hypomagnesemia-magnesium supplementation will be given to the patient #3 essential hypertension-patient will remain on her present medication #4 hyperlipidemia-patient is on a statin #5 type 2 diabetes-patient's blood sugars will be monitored, sliding scale insulin will be given as necessary Total clinical time spent by myself addressing the patient's medical issues, reviewing all of her data, and collaborating with patient's care team: 35-minute Charges/Coding Visit Charges Inpatient E&M: 36364 Subs Hosp L2 05/26/25 1339 <Electronically signed by Mao Becker DO> Cosigner Signature (if applicable): CC: ~ Signed [facility] Work Phone: 1(236) 837-595406-28-2025 Progress note [facility] Medical Records Department [address] [place] [address] Progress Note - Hospitalist 05/26/25 1335 MR#: [id number] Acct: [id number] Name: JOSEPH RINCON Rep #:[id number] : 1975 50 From: Mao Becker DO PCP: Dr. Abisai Haley MD Status:ADM IN Location: [place] [address] Subjective Subjective Patient was seen and examined today, her magnesium is low and she appears to be sleepy. She has no specific complaints today. Objective Data Objective Data Vital Signs: Vital Signs Temp Pulse Resp BP Pulse Ox O2 Del Method O2 Flow Rate 97.4 F L 80 16 117/72 94 Room Air 1 05/26/25 11:25 05/26/25 11:25 05/26/25 11:25 05/26/25 11:25 05/26/25 11:25 05/26/25 11:25 05/25/25 18:25 Oxygen Flow Rate (L/min) 1 Oxygen Delivery Method Room Air Weight: 56.7 kg Body Mass Index (BMI) 21.4 Intake & Output: Intake and Output for Last 24 Hours 05/24/25 05/25/25 05/26/25 23:59 23:59 23:59 Intake Total 2099 / 2099 Balance 2099 Lab / Micro Data 05/24/25 23:45 05/24/25 23:45 Labs: Laboratory Results - last 24 hr 05/25/25 16:15: POC Glucose 187 H 05/25/25 20:48: POC Glucose 182 H 05/26/25 06:14: POC Glucose 119 H 05/26/25 09:30: Magnesium 1.3 L 05/26/25 10:54: POC Glucose 293 H Physical Exam Const alert, oriented x3 and no apparent distress General Appearance: cooperative, well kempt and well developed Orientation / Consciousness: awake, oriented to person, oriented to place and oriented to time HEENT normocephalic, head/scalp atraumatic and moist oral mucous membranes Eyes PERRL, EOMs intact bilaterally and conjunctivae normal Neck supple, no JVD, thyroid normal and no carotid bruits General: trachea midline Resp normal respiratory effort, no retractions, no use of accessory muscles and clearto auscultation bilaterally Auscultation: Negative for rales, rhonchi or wheezes Cardio regular rate, regular rhythm, S1 normal heart sound, S2 normal heart sound, no murmurs, no rub and no gallops GI normal to inspection, nondistended, normoactive bowel sounds, soft to palpation,non-tender and non-distended Extremity no clubbing, cyanosis or edema Skin no rashes or lesions noted General Skin Exam: no breakdown Neuro oriented x3, CN's II-XII intact bilaterally, moves all extremities, no focal motor deficits and no sensory deficits noted Sensorium / Orientation: awake and alert Speech: speech normal Psych affect normal Assessment & Plan Assessment/Plan (1) Admitted to alcohol detoxification center: PLAN: Plan 1. 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 #2 hypomagnesemia-magnesium supplementation will be given to the patient #3 essential hypertension-patient will remain on her present medication #4 hyperlipidemia-patient is on a statin #5 type 2 diabetes-patient's blood sugars will be monitored, sliding scale insulin will be given asnecessary Total clinical time spent by myself addressing the patient's medical issues, reviewing all of her data, and collaborating with patient's care team: 35-minute Charges/Coding Visit Charges Inpatient E&M: 12907 Subs Hosp L2 05/26/25 1339 Cosigner Signature (if applicable): CC: ~ Signed [facility]06-27-2025 Progress note Author Mao Becker [facility] Note Date/Time May 25, 2025 5:04 pm [facility] Medical Records Department [address] [place] [address] Progress Note - Hospitalist 05/25/25 1707 MR#: [id number] Acct: [id number] Name: JOSEPH RINCON Rep #:[id number] : 1975 50 From: Mao Becker DO PCP: Dr. Abisai Haley MD Status:ADM IN Location: [place] [address] Hospitalist Note Patient was seen and examined today, she was admitted for alcohol detox-patient had just been discharged on 05/06/2025 after completing alcohol detox and treatment for pancreatitis. There is a note from addiction secondary social studies teacher thatstates the patient will follow-up with 180 for outpatient [facility] treatment. 05/25/251703 <Electronically signed by Mao Becker DO> Cosigner Signature (if applicable): CC: ~ Signed [facility] Work Phone: 1(754) 356-986306-27-2025 Progress note [facility] Medical Records Department [address] [place] [address] Progress Note - Hospitalist 05/25/251701 MR#: [id number] Acct: [id number] Name: JOSEPH RINCON Rep #:[id number] : 1975 50 From: Mao Becker DO PCP: Dr. Abisai Haley MD Status:ADM IN Location: [place] [address] Hospitalist Note Patient was seen and examined today, she was admitted for alcohol detox-patient had just been discharged on 05/06/2025 after completing alcohol detox and treatment for pancreatitis. There is a note from addiction secondary social studies teacher thatstates the patient will follow-up with 180 for outpatient [facility] treatment. 05/25/251703 Cosigner Signature (if applicable): CC: ~ Signed [facility]06-27-2025 Discharge summary Author Andrew Maurice [facility] Note Date/Time May 25, 2025 2:37 am [facility] Medical Records Department [address] [place] [address] Emergency Department Summary 05/25/25 MR#: [id number] Acct: [id number] Name: JOSEPH RINCON Rep #:[id number] : 1975 50 From: Andrew elizondo DO PCP: Dr. Abisai Haley MD Status:ADM IN Location: [facility] FT045-5 HPI History of Present Illness Chief Complaint: ETOH Intox Narrative Narrative: Chief complaint and HPI: Requesting alcohol detox. 50-year-old female with pastmedical history of alcohol abuse, pancreatitis, HTN presents requesting alcohol detox. Patient states that she is a daily drinker. Mostly drinks vodka. States that her has been chronically ill recently in which she has cut down on her alcohol intake. She states that she did drink more today than she usually does, 1/5. She endorses nausea and anxiousness. She is unsure if she is ever withdrawing from alcohol in the past that she has never gone through an alcohol detox program. She denies any fever, chills, shortness of breath, chestpain, abdominal pain. Denies any illicit drug use. Review of systems: See HPI Medications: As listed on the chart Allergies: As listed on the chart PFSH: Per chart Vital signs: As listed on the chart. Reviewed. Physical exam: Gen: A&O x3, NAD Head: Normocephalic, atraumatic Eyes: No sclera icterus, conjunctiva clear, PERRL ENT: Mildly dry mucous membranes Neck: Trachea midline, No JVD CV: RRR, no murmurs, no peripheral edema Resp: Lungs CTA BL, no w/r/c GI: Abd soft, non-distended, non-tender, no r/r/g Musc: Full ROM, no deformity Skin: Warm, dry Neuro: Alert, oriented, grossly intact, sensation intact Psych: Cooperative, appropriate mood and affect [facility] Medical History Pancreatitis Hypokalemia Nausea & vomiting Intractable abdominal pain Strain of left foot Plantar fasciitis of [...] mg PO DAILY Unknown History extended release montelukast 10 mg tablet 10 mg PO DAILY 04/09/23 Unkn own History (Singulair) pantoprazole 40 mg tablet,delayed 40 mg PO BID 3 Unknown History release cholecalciferol (vitamin D3) 50 50 mcg PO DAILY Unknown History mcg (2,000 unit) capsule magnesium 250 mg tablet 250 mg PO DAILY 08/25/23 Unk nown History albuterol sulfate 90 mcg/actuation 2 puff inhalation [...] 5 mg tablet 5 mg PO TID PRN anxiety 06/22 Unknown History hydroxyzine HCl 10 mg tablet 10 mg PO TID PRN PRN anxi ety 04/04/25 Unknown Histo ry citalopram 40 mg tablet 40 mg PO [...] 04/26/25 Unknown History mcg-4.5 mcg/actuation aerosol inhaler glimepiride 4 mg tablet 4 mg PO DAILY #30 tabs 05/06 Unknown Rx Allergy/AdvReac Type Severity Reaction Status Date / Time No Known Allergies Allergy Verified 05/24/25 23:11 Family History Grandfather CVA (cerebral vascular accident) Diabetes Mother Cancer Father Hypertension Grandmother Hypertension Diabetes Surgical History History of cholecystectomy H/O tooth extraction plantar fasciitis release Social History (Updated 05/25/25 @ 01:[address] Myra Null MD) household members: spouse and children housing: house pets and animals: Yes Smoking Status: Light Smoker (<10/day) alcohol intake: current alcohol intake frequency: 3 or more drinks per day Alcohol type: hard liquor details: At least 1/5 vodka daily, recently increased EtOH intake. substance use type: does not use EXAM Physical Exam Const Vital Signs: 05/24/25 23:09 Temperature 98 F Temperature Source Temporal Pulse Rate 123 H Respiratory Rate 14 Blood Pressure 137/94 H Blood Pressure Mean 108 Pulse Ox 93 Oxygen Delivery Method Room Air MDM MDM MDM Narrative Medical decision making narrative: 50-year-old female with past medical history of alcohol abuse, pancreatitis, HTNpresents requesting alcohol detox. Patient's last alcoholic drink was today. Drank 1/5 of vodka. Endorses nausea and anxiousness. Differential diagnosis includes but is not limited to alcohol intoxication, electrolyte abnormality, dehydration, requesting alcohol detox. NS bolus, Zofran, Ativan ordered for symptoms. Patient placed on CIWA. Laboratory workup ordered. CBC without leukocytosis or anemia. CMP consistent with alcoholic ketosis. No significant electrolyte abnormality or LUI on CMP. Patient has AST transaminitis of 45, this is consistent with her alcohol abuse. No hyperbilirubinemia. Serum negative. UA positive for dehydration but negative for UTI. Urine drug screen positive for barbiturates and benzodiazepine. I did give her Ativan. Alcohol level 312. Patient will warrant admission for detox. I spoke with the hospitalist who accepted admission. Impression: 1. Requesting alcohol detox 2. Alcohol intoxication with history of alcohol abuse 3. Alcoholic ketosis with mild dehydration 4. Alcoholic transaminitis Lab Data Labs: Laboratory Results - last 24 hr 05/24/25 23:45 WBC 8.7 RBC 3.82 L Hgb 13.2 Hct 38.3 MCV 100.3 H MCH 34.6 H MCHC 34.5 RDW Std Deviation 47.9 H RDW Coeff of Braxton 13.1 Plt Count 187 MPV 10.0 Immature Gran % (Auto) 0.100 Neut % (Auto) 49.9 Lymph % (Auto) 41.1 H [place] % (Auto) 7.7 Eos % (Auto) 0.7 Baso % (Auto) 0.5 Absolute Neuts (auto) 4.3 Absolute Lymphs (auto) 3.57 Nucleated RBC % 0 Sodium 140 Potassium 4.1 Chloride 98 Carbon Dioxide 20.9 L Anion Gap 21 H BUN 8 Creatinine 0.72 Estim Creat Clear Calc 82.51 Est GFR (MDRD) Non-Af 104 BUN/Creatinine Ratio 11.4 Glucose 84 Calcium 8.7 Total Bilirubin 0.37 AST 45 H ALT 29 Alkaline Phosphatase 115 H Total Protein 7.5 Albumin 4.1 Globulin 3.4 Albumin/Globulin Ratio 1.2 Serum , Qual NEGATIVE Urine Color Yellow Urine Clarity Clear Urine pH 6.0 Ur Specific Hawley 1.015 Urine Protein 30 H Urine Glucose (UA) Normal Urine Ketones 5 H Urine Occult Blood 10 H Urine Nitrite Negative Urine Bilirubin Negative Urine Urobilinogen Normal Ur Leukocyte Esterase 25 H Urine RBC 0-5 SEEN Urine WBC 0-5 SEEN Ur Squamous Epith Cells 5-10 SEEN Urine Bacteria 0 SEEN Urine Mucus 0 SEEN Urine Opiates Screen NEGATIVE U Buprenorphine Qual NEGATIVE Ur Oxycodone Screen NEGATIVE Urine Methadone Screen NEGATIVE Urine Fentanyl Screen NEGATIVE Ur Barbiturates Screen PRESUMPTIVE POSITIVE Ur Phencyclidine Scrn NEGATIVE Ur Amphetamines Screen NEGATIVE U Benzodiazepines Scrn PRESUMPTIVE POSITIVE Urine Cocaine Screen NEGATIVE U Cannabinoids Screen NEGATIVE Ethyl Alcohol 312.0 H* Discharge Plan Disposition Disposition: Acute Care Hospital [facility] Discharge Date/Time: 05/25/25 02:28 What to do if you have Problems For any increased pain, shortness of breath, bleeding, nausea or vomiting, chestpain, or any unexpected problems, contact your Primary Care Provider. Call [facility] ([phone]) or report to the closest Emergency Room. Call 911 if necessary. 05/25/25 0237 <Electronically signed by Andrew Maurice DO> Cosigner Signature (if applicable): CC: Dr. Abisai Haley MD ~ Signed [facility] Work Phone: 1(937) 786-405806-27-2025 History and physical note Author Myra Null [facility] Note Date/Time May 25, 2025 1:54 [facility] Medical Records Department [address] [place] [address] H&P Exam - Hospitalist 05/25/25 0037 MR#: [id number] Acct: [id number] Name: JOSEPH RINCON Rep #:[id number] : 1975 50 From: Myra Null MD PCP: Dr. Abisai Haley MD Status:REG ER Location: ED HPI - General General Date of Admission: 05/25/25 Date of Service: 05/25/25 Chief Complaint: EtOH detoxification request, EtOH withdrawal. HPI Narrative The patient is a 50 y/o F w/ PMHx: MOUNIKA on CPAP, COPD, Tobacco use, Chronic pancreatitis, Alcohol withdrawal seizures history per chart, HTN, HLD, Anxiety and Depression, GERD, Diabetes mellitus type II, EtOH abuse (>1/5 vodka daily) who presents to the [facility] ED on 05/25/25 with history of requesting alcohol detoxification with last alcohol intake just prior to ED arrival appearing to still be intoxicated with no overt evident withdrawal symptoms although patient in the ED does several times twitch her arms and seemingly look unresponsive butis easily arousable and will sit up quickly and talk but is requesting as noted alcohol withdrawal treatment. She does report that recently over the last several weeks she has increased her alcohol intake. Workup in the ED included T98, heart 123, BP 137/94, respiratory rate 14, 93% on room air, most recent repeat vitals T98.3, heart rate 99, BP 141/63, respiratory rate 14, 95% on room air, CBC with WC 8.7, hemoglobin 13.2, platelet 187 without marked shift, CMP with come dioxide 20.9, anion gap 21, BUN/creatinine 8/0.72, GFR 104, AST 45, alk phos 115, negative serum testing, urinalysis not marked appearing. In the ED patient ministered 1 normal saline, Ativan 1 mg IV x 1, Zofran 4 mg IV x 1. [facility] Medical History Pancreatitis Hypokalemia Nausea & vomiting Intractable abdominal pain Strain of left foot Plantar fasciitis of [...] mg PO DAILY Unknown History extended release montelukast 10 mg tablet 10 mg PO DAILY 04/09/23 Unkn own History (Singulair) pantoprazole 40 mg tablet,delayed 40 mg PO BID 3 Unknown History release cholecalciferol (vitamin D3) 50 50 mcg PO DAILY Unknown History mcg (2,000 unit) capsule magnesium 250 mg tablet 250 mg PO DAILY 08/25/23 Unk nown History albuterol sulfate 90 mcg/actuation 2 puff inhalation [...] 5 mg tablet 5 mg PO TID PRN anxiety 06/22 Unknown History hydroxyzine HCl 10 mg tablet [...] 04/26/25 Unknown History mcg-4.5 mcg/actuation aerosol inhaler glimepiride 4 mg tablet 4 mg PO DAILY #30 tabs 05/06 Unknown Rx Allergy/AdvReac Type Severity Reaction Status Date / Time No Known Allergies Allergy Verified 05/24/25 23:11 Family History Grandfather CVA (cerebral vascular accident) Diabetes Mother Cancer Father Hypertension Grandmother Hypertension Diabetes Surgical History History of cholecystectomy H/O tooth extraction plantar fasciitis release Social History (Updated 05/25/25 @ 01:[address] Myra Null MD) household members: spouse and children housing: house pets and animals: Yes Smoking Status: Light Smoker (<10/day) alcohol intake: current alcohol intake frequency: 3 or more drinks per day Alcohol type: hard liquor details: At least 1/5 vodka daily, recently increased EtOH intake. substance use type: does not use ROS ROS Narrative Admission Review of Systems: CONSTITUTIONAL: No weight loss, fever, chills, weakness or fatigue. HEENT: Eyes: No visual loss, blurred vision, double vision or yellow sclerae. Ears, Nose, Throat: No hearing loss, sneezing, congestion, runny nose or sore throat. SKIN: No rash or itching, lesions, wounds. CARDIOVASCULAR: No chest pain, chest pressure or chest discomfort, palpitations,edema, orthopnea, syncopal events. RESPIRATORY: No shortness of breath, cough or sputum, wheezing, hemoptysis. GASTROINTESTINAL: No anorexia, nausea, vomiting or diarrhea, abdominal pain, melena, BRBPR. GENITOURINARY: No dysuria, frequency, urgency or retention. NEUROLOGICAL: + Intoxicated. Does have a history of previous alcohol withdrawalseizures. In the ED does have some atypical extremity movements but this is purposeful and appears patient driven/pseudo. No headache, dizziness, syncope, paralysis, ataxia, numbness or tingling in the extremities, focal weakness, change in bowel or bladder control. MUSCULOSKELETAL: + muscle, back pain, joint pain or stiffness. HEMATOLOGIC: No anemia, bleeding or bruising. LYMPHATICS: No enlarged nodes. No history of splenectomy. PSYCHIATRIC:+ History of anxiety and depression. ENDOCRINOLOGIC: No reports of sweating, cold or heat intolerance. No polyuria orpolydipsia. ALLERGIES: + History of allergic rhinitis. Vital Signs Vital Signs Vital Signs: 05/24/25 23:09 Temperature 98 F Temperature Source Temporal Pulse Rate 123 H Respiratory Rate 14 Blood Pressure 137/94 H Blood Pressure Mean 108 Pulse Ox 93 Oxygen Delivery Method Room Air Weight Weight: 126 lb 8.725 oz Body Mass Index (BMI) 21.7 Physical Exam Narrative Physical Examination: General: Awake, alert, oriented x 3 and cooperative, seated upright in ED bed, intermittently appearing more lethargic but very quick to recover and began discussions again or to awaken when she wants to try mitten to the conversation. Skin: Normal color, normal turgor, no icterus, no cyanosis except occasional stage ecchymoses, abrasion. HEENT: AT/NC, EOMI, PERRLA, mildly dry MM, no carotid bruits or JVD noted. Lungs: CTA bilaterally, moderate effort, mild decrease BL bases, no rales, ronchi or wheezing. Heart: Improved, regular rate and rhythm; no gallop, rub audible. Abdomen: Soft, NTTP, ND, normal BS, + HM. Extremities: No cyanosis, clubbing, or edema. Neurological: Patient awake, alert, oriented as noted, cognitive function suspect likely near baseline intact although she does have intermittent periods where she appears to be nearly play acting at being lethargic quickly awakening without issue and when she wants to enter jacked in the conversation, pupils equally reactive to light and accommodation, cranial nerves grossly normal, moving all 4 extremities, no focal deficits, strength preserved, no evidence of any tremulousness, currently appears intoxicated. Psychiatric: Affect appears intermittently calm and normal interaction, varying with attempts to appear to be lethargic, no acute evidence of depressive or anxiety feelings but does have underlying history. Results Lab / Micro Data 05/24/25 23:45 05/24/25 23:45 Assessment & Plan Assessment/Plan (1) Admitted to alcohol detoxification center: PLAN: Plan The patient is a 50 y/o F w/ PMHx: MOUNIKA on CPAP, COPD, Tobacco use, Chronic pancreatitis, Alcohol withdrawal seizures history per chart, HTN, HLD, Anxiety and Depression, GERD, Diabetes mellitus type II, EtOH abuse (>1/5 vodka daily) who presents to the [facility] ED on 05/25/25 with history of requesting alcohol detoxification with last alcohol intake just prior to ED arrival appearing to still be intoxicated. #1. Acute EtOH Withdrawal: Will admit to MS, routine labs obtained in the ED upon presentation and not marked appearing. Given interest in sobriety, will initiate and continue on protocol with taper course of Phenobarbital, as needed gabapentin, Catapres, Bentyl, Vistaril, IV fluids, IV antiemetics, Tylenol as needed for pain. Will consult Case management for assistance for transition to next level of rehabilitation care. Mag, phos pending. Maintain on CIWA protocol concurrently. #2. Anxiety and depression: Will continue patient home citalopram, buspirone, bupropion home regimen, would benefit greatly from ongoing follow-up and counseling outpatient given especially alcohol abuse history. #3. Diabetes mellitus type II: Hold oral home regimen, ADA diet, accu checks w/ISS. #4. Chronic COPD with allergic rhinitis: Will temporarily hold home inhalers inthe interim transition to ATC budesonide therapy, PRN albuterol, HOB, IS parameters, continue home montelukast regimen as well as levocetirizine. #5. Hypertension: Continue home regimen including metoprolol, lisinopril, PRN hydralazine. #6. Hyperlipidemia: Will continue patient on statin therapy. #7. Tobacco Abuse: Encouraged cessation, inpatient consultation per RT, NR if desired. #8. GERD: Will continue patient on PPI. #9. MOUNIKA: CPAP nightly. #10. DVT prophylaxis: Low risk for type of admission presentation. Charges/Coding Visit Charges Inpatient E&M: 88178 Init Hosp L3 05/25/25 0154 <Electronically signed by Myra Null MD> Cosigner Signature (if applicable): CC: Dr. Myra Null MD; Dr. Abisai Haley MD~ Signed [facility] Work Phone: [phone] 437-414706-27-2025 Discharge summary [facility] Medical Records Department [address] [place] [address] Emergency Department Summary 05/25/25 MR#: [id number] Acct: [id number] Name: JOSEPH RINCON Rep #:[id number] : 1975 50 From: Andrew elizondo DO PCP: Dr. Abisai Haley MD Status:ADM IN Location: MS3 [id number] HPI History of Present Illness Chief Complaint: ETOH Intox Narrative Narrative: Chief complaint and HPI: Requesting alcohol detox. 50-year-old female with pastmedical history of alcohol abuse, pancreatitis, HTN presents requesting alcohol detox. Patient states that she is a daily drinker. Mostly drinks vodka. States that her has been chronically ill recently in which she has cut down on her alcohol intake. She states that she did drink more today than she usually does, 1/5. She endorses nausea and anxiousness. She is unsure if she is ever withdrawing from alcohol in the past that she has never gone through an alcohol detox program. She denies any fever, chills, shortness of breath, chestpain, abdominal pain. Denies any illicit drug use. Review of systems: See HPI Medications: As listed on the chart Allergies: As listed on the chart PFSH: Per chart Vital signs: As listed on the chart. Reviewed. Physical exam: Gen: A&O x3, NAD Head: Normocephalic, atraumatic Eyes: No sclera icterus, conjunctiva clear, PERRL ENT: Mildly dry mucous membranes Neck: Trachea midline, No JVD CV: RRR, no murmurs, no peripheral edema Resp: Lungs CTA BL, no w/r/c GI: Abd soft, non-distended, non-tender, no r/r/g Musc: Full ROM, no deformity Skin: Warm, dry Neuro: Alert, oriented, grossly intact, sensation intact Psych: Cooperative, appropriate mood and affect [facility] Medical History Pancreatitis Hypokalemia Nausea & vomiting Intractable abdominal pain Strain of left foot Plantar fasciitis of [...] mg PO DAILY Unknown History extended release montelukast 10 mg tablet 10 mg PO DAILY 04/09/23 Unkn own History (Singulair) pantoprazole 40 mg tablet,delayed 40 mg PO BID 3 Unknown History release cholecalciferol (vitamin D3) 50 50 mcg PO DAILY Unknown History mcg (2,000 unit) capsule magnesium 250 mg tablet 250 mg PO DAILY 08/25/23 Unk nown History albuterol sulfate 90 mcg/actuation 2 puff inhalation [...] 5 mg tablet 5 mg PO TID PRN anxiety 06/22 Unknown History hydroxyzine HCl 10 mg tablet 10 mg PO TID PRN PRN anxi ety 04/04/25 Unknown Histo ry citalopram 40 mg tablet 40 mg PO [...] 04/26/25 Unknown History mcg-4.5 mcg/actuation aerosol inhaler glimepiride 4 mg tablet 4 mg PO DAILY #30 tabs 05/06 Unknown Rx Allergy/AdvReac Type Severity Reaction Status Date / Time No Known Allergies Allergy Verified 05/24/25 23:11 Family History Grandfather CVA (cerebral vascular accident) Diabetes Mother Cancer Father Hypertension Grandmother Hypertension Diabetes Surgical History History of cholecystectomy H/O tooth extraction plantar fasciitis release Social History (Updated 05/25/25 @ 01:[address] Myra Null MD) household members: spouse and children housing: house pets and animals: Yes Smoking Status: Light Smoker (<10/day) alcohol intake: current alcohol intake frequency: 3 or more drinks per day Alcohol type: hard liquor details: At least 1/5 vodka daily, recently increased EtOH intake. substance use type: does not use EXAM Physical Exam Const Vital Signs: 05/24/25 23:09 Temperature 98 F Temperature Source Temporal Pulse Rate 123 H Respiratory Rate 14 Blood Pressure 137/94 H Blood Pressure Mean 108 Pulse Ox 93 Oxygen Delivery Method Room Air MDM MDM MDM Narrative Medical decision making narrative: 50-year-old female with past medical history of alcohol abuse, pancreatitis, HTNpresents requestingalcohol detox. Patient's last alcoholic drink was today. Drank 1/5 of vodka. Endorses nausea and anxiousness. Differential diagnosis includes but is not limited to alcohol intoxication, electrolyte abnormality, dehydration, requesting alcohol detox. NS bolus, Zofran, Ativan ordered for symptoms. Patient placed on CIWA. Laboratory workup ordered. CBC without leukocytosis or anemia. CMP consistent with alcoholic ketosis. No significant electrolyte abnormality or LUI on CMP. Patient has AST transaminitis of 45, this is consistent with her alcohol abuse. No hyperbilirubinemia. Serum negative. UA positive for dehydration but negative for UTI. Urine drug screen positive for barbituratesand benzodiazepine. I did give her Ativan. Alcohol level 312. Patient will warrant admission for detox. I spoke with the hospitalist who accepted admission. Impression: 1. Requesting alcohol detox 2. Alcohol intoxication with history of alcohol abuse 3. Alcoholic ketosis with mild dehydration 4. Alcoholic transaminitis Lab Data Labs: Laboratory Results - last 24 hr 05/24/25 23:45 WBC 8.7 RBC 3.82 L Hgb 13.2 Hct 38.3 MCV 100.3 H MCH 34.6 H MCHC 34.5 RDW Std Deviation 47.9 H RDW Coeff of Braxton 13.1 Plt Count 187 MPV 10.0 Immature Gran % (Auto) 0.100 Neut % (Auto) 49.9 Lymph % (Auto) 41.1 H [place] % (Auto) 7.7 Eos % (Auto) 0.7 Baso % (Auto) 0.5 Absolute Neuts (auto) 4.3 Absolute Lymphs (auto) 3.57 Nucleated RBC % 0 Sodium 140 Potassium 4.1 Chloride 98 Carbon Dioxide 20.9 L Anion Gap 21 H BUN 8 Creatinine 0.72 Estim Creat Clear Calc 82.51 Est GFR (MDRD) Non-Af 104 BUN/Creatinine Ratio 11.4 Glucose 84 Calcium 8.7 Total Bilirubin 0.37 AST 45 H ALT 29 Alkaline Phosphatase 115 H Total Protein 7.5 Albumin 4.1 Globulin 3.4 Albumin/Globulin Ratio 1.2 Serum , Qual NEGATIVE Urine Color Yellow Urine Clarity Clear Urine pH 6.0 Ur Specific Hawley 1.015 Urine Protein 30 H Urine Glucose (UA) Normal Urine Ketones 5 H Urine Occult Blood 10 H Urine Nitrite Negative Urine Bilirubin Negative Urine Urobilinogen Normal Ur Leukocyte Esterase 25 H Urine RBC 0-5 SEEN Urine WBC 0-5 SEEN Ur Squamous Epith Cells 5-10 SEEN Urine Bacteria 0 SEEN Urine Mucus 0 SEEN Urine Opiates Screen NEGATIVE U Buprenorphine Qual NEGATIVE Ur Oxycodone Screen NEGATIVE Urine Methadone Screen NEGATIVE Urine Fentanyl Screen NEGATIVE Ur Barbiturates Screen PRESUMPTIVE POSITIVE Ur Phencyclidine Scrn NEGATIVE Ur Amphetamines Screen NEGATIVE U Benzodiazepines Scrn PRESUMPTIVE POSITIVE Urine Cocaine Screen NEGATIVE U Cannabinoids Screen NEGATIVE Ethyl Alcohol 312.0 H* Discharge Plan Disposition Disposition: Acute Care Hospital [facility] Discharge Date/Time: 05/25/25 02:28 What to do if you have Problems For any increased pain, shortness of breath, bleeding, nausea or vomiting, chestpain, or any unexpected problems, contact your Primary Care Provider. Call [facility] ([phone]) or report tothe closest Emergency Room. Call 911 if necessary. 05/25/25 3464 Cosigner Signature (if applicable): CC: Dr. Abisai Haley MD ~ Signed [facility]06-27-2025 History and physical note [facility] Medical Records Department [address] [place] [address] H&P Exam - Hospitalist 05/25/25 0037 MR#: [id number] Acct: [id number] Name: JOSEPH RINCON Rep #:[id number] : 1975 50 From: Myra Null MD PCP: Dr. Abisai Haley MD Status:REG ER Location: ED HPI - General General Date of Admission: 05/25/25 Date of Service: 05/25/25 Chief Complaint: EtOH detoxification request, EtOH withdrawal. HPI Narrative The patient is a 50 y/o F w/ PMHx: MOUNIKA on CPAP, COPD, Tobacco use, Chronic pancreatitis, Alcohol withdrawal seizures history per chart, HTN, HLD, Anxiety and Depression, GERD, Diabetes mellitus type II, EtOH abuse (>1/5 vodka daily) who presents to the [facility] ED on 05/25/25 with history of requesting alcohol detoxification with last alcohol intake just prior to ED arrival appearing to still be intoxicated with no overt evident withdrawal symptoms although patient in the ED does several times twitch her arms and seemingly look unresponsive butis easily arousable and will sit up quickly and talkbut is requesting as noted alcohol withdrawal treatment. She does report that recently over the last several weeks she has increased her alcohol intake. Workup in the ED included T98, heart 123, BP 137/94, respiratory rate 14, 93% on room air, most recent repeat vitals T98.3, heart rate 99, BP 141/63, respiratory rate 14, 95% on room air, CBC with WC 8.7, hemoglobin 13.2, platelet 187 without marked shift, CMP with come dioxide 20.9, anion gap 21, BUN/creatinine 8/0.72, GFR 104, AST 45, alk phos 115, negative serum testing, urinalysis not marked appearing. In the ED patient ministered 1 normal saline, Ativan 1 mg IV x 1, Zofran 4 mg IV x 1. [facility] Medical History Pancreatitis Hypokalemia Nausea & vomiting Intractable abdominal pain Strain of left foot Plantar fasciitis of [...] mg PO DAILY Unknown History extended release montelukast 10 mg tablet 10 mg PO DAILY 04/09/23 Unkn own History (Singulair) pantoprazole 40 mg tablet,delayed 40 mg PO BID 3 Unknown History release cholecalciferol (vitamin D3) 50 50 mcg PO DAILY Unknown History mcg (2,000 unit) capsule magnesium 250 mg tablet 250 mg PO DAILY 08/25/23 Unk nown History albuterol sulfate 90 mcg/actuation 2 puff inhalation [...] 5 mg tablet 5 mg PO TID PRN anxiety 06/22 Unknown History hydroxyzine HCl 10 mg tablet [...] 04/26/25 Unknown History mcg-4.5 mcg/actuation aerosol inhaler glimepiride 4 mg tablet 4 mg PO DAILY #30 tabs 05/06 Unknown Rx Allergy/AdvReac Type Severity Reaction Status Date / Time No Known Allergies Allergy Verified 05/24/25 23:11 Family History Grandfather CVA (cerebral vascular accident) Diabetes Mother Cancer Father Hypertension Grandmother Hypertension Diabetes Surgical History History of cholecystectomy H/O tooth extraction plantar fasciitis release Social History (Updated 05/25/25 @ 01:[address] Myra Null MD) household members: spouse and children housing: house pets and animals: Yes Smoking Status: Light Smoker (<10/day) alcohol intake: current alcohol intake frequency: 3 or more drinks per day Alcohol type: hard liquor details: At least 1/5 vodka daily, recently increased EtOH intake. substance use type: does not use ROS ROS Narrative Admission Review of Systems: CONSTITUTIONAL: No weight loss, fever, chills, weakness or fatigue. HEENT: Eyes: No visual loss, blurred vision, double vision or yellow sclerae. Ears, Nose, Throat: No hearing loss, sneezing, congestion, runny nose or sore throat. SKIN: No rash or itching, lesions, wounds. CARDIOVASCULAR: No chest pain, chest pressure or chest discomfort, palpitations,edema, orthopnea, syncopal events. RESPIRATORY: No shortness of breath, cough or sputum, wheezing, hemoptysis. GASTROINTESTINAL: No anorexia, nausea, vomiting or diarrhea, abdominal pain, melena, BRBPR. GENITOURINARY: No dysuria, frequency, urgency or retention. NEUROLOGICAL: + Intoxicated. Does have a history of previous alcohol withdrawalseizures. In the ED does have some atypical extremity movements but this is purposeful and appears patient driven/pseudo. No headache, dizziness, syncope, paralysis, ataxia, numbness or tingling in the extremities, focal weakness, change in bowel or bladder control. MUSCULOSKELETAL: + muscle, back pain, joint pain or stiffness. HEMATOLOGIC: No anemia, bleeding or bruising. LYMPHATICS: No enlarged nodes. No history of splenectomy. PSYCHIATRIC:+ History of anxiety and depression. ENDOCRINOLOGIC: No reports of sweating, cold or heat intolerance. No polyuria orpolydipsia. ALLERGIES: + History of allergic rhinitis. Vital Signs Vital Signs Vital Signs: 05/24/25 23:09 Temperature 98 F Temperature Source Temporal Pulse Rate 123 H Respiratory Rate 14 Blood Pressure 137/94 H Blood Pressure Mean 108 Pulse Ox 93 Oxygen Delivery Method Room Air Weight Weight: 126 lb 8.725 oz Body Mass Index (BMI) 21.7 Physical Exam Narrative Physical Examination: General: Awake, alert, oriented x 3 and cooperative, seated upright in ED bed, intermittently appearing more lethargic but very quick to recover and began discussions again or to awaken when she wants to try mitten to the conversation. Skin: Normal color, normal turgor, no icterus, no cyanosis except occasional stage ecchymoses, abrasion. HEENT: AT/NC, EOMI, PERRLA, mildly dry MM, no carotid bruits or JVD noted. Lungs: CTA bilaterally, moderate effort, mild decrease BL bases, no rales, ronchi or wheezing. Heart: Improved, regular rate and rhythm; no gallop, rub audible. Abdomen: Soft, NTTP, ND, normal BS, + HM. Extremities: No cyanosis, clubbing, or edema. Neurological: Patient awake, alert, oriented as noted, cognitive function suspect likely near baseline intact although she does have intermittent periods where she appears to be nearly play acting atbeing lethargic quickly awakening without issue and when she wants to enter jacked in the conversation, pupils equally reactive to light and accommodation, cranial nerves grossly normal, moving all 4extremities, no focal deficits, strength preserved, no evidence of any tremulousness, currently appears intoxicated. Psychiatric: Affect appears intermittently calm and normal interaction, varying with attempts to appear to be lethargic, no acute evidence of depressive or anxiety feelings but does have underlying history. Results Lab / Micro Data 05/24/25 23:45 05/24/25 23:45 Assessment & Plan Assessment/Plan (1) Admitted to alcohol detoxification center: PLAN: Plan The patient is a 50 y/o F w/ PMHx: MOUNIKA on CPAP, COPD, Tobacco use, Chronic pancreatitis, Alcohol withdrawal seizures history per chart, HTN, HLD, Anxiety and Depression, GERD, Diabetes mellitus type II, EtOH abuse (>1/5 vodka daily) who presents to the [facility] ED on 05/25/25 with history of requesting alcohol detoxification with last alcohol intake just prior to ED arrival appearing to still be intoxicated. #1. Acute EtOH Withdrawal: Will admit to MS, routine labs obtained in the ED upon presentation and not marked appearing. Given interest in sobriety, will initiate and continue on protocol with taper course of Phenobarbital, as needed gabapentin, Catapres, Bentyl, Vistaril, IV fluids, IV antiemetics, Tylenol as needed for pain. Will consult Case management for assistance for transition to next level of rehabilitation care. Mag, phos pending. Maintain on CIWA protocol concurrently. #2. Anxiety and depression: Will continue patient home citalopram, buspirone, bupropion home regimen, would benefit greatly from ongoing follow-up and counseling outpatient given especially alcohol abuse history. #3. Diabetes mellitus type II: Hold oral home regimen, ADA diet, accu checks w/ISS. #4. Chronic COPD with allergic rhinitis: Will temporarily hold home inhalers inthe interim transition to ATC budesonide therapy, PRN albuterol, HOB, IS parameters, continue home montelukast regimen as well as levocetirizine. #5. Hypertension: Continue home regimen including metoprolol, lisinopril, PRN hydralazine. #6. Hyperlipidemia: Will continue patient on statin therapy. #7. Tobacco Abuse: Encouraged cessation, inpatient consultation per RT, NR if desired. #8. GERD: Will continue patient on PPI. #9. MOUNIKA: CPAP nightly. #10. DVT prophylaxis: Low risk for type of admission presentation. Charges/Coding Visit Charges Inpatient E&M: 61957 Init Hosp L3 05/25/25 0154 Cosigner Signature (if applicable): CC: Dr. Myra Null MD; Dr. Abisai Haley MD~ Signed [facility]06-08-2025 Discharge summary [facility] Medical Records Department [address] [place] [address] Instructions for Home/Discharge Instructions 05/06/25 1312 MR#: [id number] Acct: [id number] Name: JOSEPH RINCON Rep #:[id number] : 1975 50 From: Mao Becker DO [...] can be placed): Home, Self Care 05/06/25 1322Mark Tereletsky DO CC: Dr. Julius Moncada MD; Dr. Abisai Haley MD; Dr. Canelo Myers MD ~ Signed [facility]06-08-20[facility] Progress note Author Canelo Myers [facility] Note Date/Time May 04, 2025 9:53a m [facility] Medical Records Department [address] [place] [address] Progress Note - Hospitalist 05/04/25 0742 MR#: [id number] Acct: [id number] Name: JOSEPH RINCON Rep #:[id number] : 1975 50 From: Canelo Myers MD PCP: Dr. Abisai Haley MD Status:ADM IN Location: [place] [address] Reason for Visit Reason for Visit: Diagnoses [...] 04/27/25 14:17 SB (Rec: 04/27/25 14:17 SB [id number]) Nutrition Malnutrition Evidence of Yes Malnutrition Exists [...] % (Auto) 58.1, Lymph % (Auto) 23.0, [place] % (Auto) 15.4 H, Eos % (Auto) [...] ? Requested for PT OT eval and secondary social studies teacher to assist with discharge planning ? 05/03/2025; patient remains physical deconditioning. She is agreeable to being discharged with [facility] this was discussed with patient's son Tan was in the room Time spent in the patient's overall evaluation,decision-making process, review of diagnostic data, adjustment of management, discussion with other providers, nursing nursing and ancillary staff involved in patient's care documentation, 35minutes Charges/Coding Visit Charges Inpatient E&M: 41865 Subs Hosp L2 05/04/25 0953 <Electronically signed by Canelo Myers MD> Cosigner Signature (if applicable): CC: ~ Signed [facility] Work Phone: 1(587) 867-270506-06-2025 Progress note [facility] Medical Records Department [address] [place] [address] Progress Note - Hospitalist 05/04/25 0742 MR#: [id number] Acct: [id number] Name: JOSEPH RINCON Rep #:[id number] : 1975 50 From: Canelo Myers MD PCP: Dr. Abisai Haley MD Status:ADM IN Location: [place] [address] Reason for Visit Reason for Visit: Diagnoses [...] 04/27/25 14:17 SB (Rec: 04/27/25 14:17 SB [id number]) Nutrition Malnutrition Evidence of Yes Malnutrition Exists [...] % (Auto) 58.1, Lymph % (Auto) 23.0, [place] % (Auto) 15.4 H, Eos % (Auto) [...] ? Requested for PT OT eval and secondary social studies teacher to assist with discharge planning ? 05/03/2025; patient remains physical deconditioning. She is agreeable to being discharged with [facility] for [facility] this was discussed with patient's son Tan was in the room Time spent in the patient's overall evaluation,decision-making process, review of diagnostic data, adjustment of management, discussion with other providers, nursing nursing and ancillary staff involved in patient's care documentation, 35minutes Charges/Coding Visit Charges Inpatient E&M: 27294 Subs Hosp L2 05/04/25 0953 Cosigner Signature (if applicable): CC: ~ Signed [facility]06-05-2025 Progress note Author Canelo Myers [facility] Note Date/Time May 03, 2025 11:37 am [facility] Medical Records Department [address] [place] [address] Progress Note - Hospitalist 05/03/25 1136 MR#: [id number] Acct: [id number] Name: JOSEPH RINCON Rep #:[id number] : 1975 50 From: Canelo Myers MD PCP: Dr. Abisai Haley MD Status:ADM IN Location: [place] [address] Reason for Visit Reason for Visit: Diagnoses Acute pancreatitis without necrosis or infection, unspecified (04/26/25) Subjective Subjective Patient has completed phenobarb taper. She however remains physically deconditioned. She is agreeable to being discharged to a [facility] for [facility] Objective Data Objective Data [...] 04/27/25 14:17 SB (Rec: 04/27/25 14:17 SB [id number]) Nutrition Malnutrition Evidence of Yes Malnutrition Exists [...] % (Auto) 61.1, Lymph % (Auto) 19.7, [place] % (Auto) 15.1 H, Eos % (Auto) [...] ? Requested for PT OT eval and secondary social studies teacher to assist with discharge planning ? 05/03/2025; patient remains physical deconditioning. She is agreeable to being discharged with [facility] for [facility] this was discussed with patient's son Tan was in the room Charges/Coding Visit Charges Inpatient E&M: 11809 Subs Hosp L2 05/03/25 1137 <Electronically signed by Canelo Myers MD> Cosigner Signature (if applicable): CC: ~ Signed [facility] Work Phone: 1(614) 877-546306-05-2025 Progress note [facility] Medical Records Department [address] [place] [address] Progress Note - Hospitalist 05/03/25 1136 MR#: [id number] Acct: [id number] Name: JOSEPH RINCON Rep #:[id number] : 1975 50 From: Canelo Myers MD PCP: Dr. Abisai Haley MD Status:ADM IN Location: [place] [address] Reason for Visit Reason for Visit: Diagnoses Acute pancreatitis without necrosis or infection, unspecified (04/26/25) Subjective Subjective Patient has completed phenobarb taper. She however remains physically deconditioned. She is agreeable to being discharged to a [facility] for [facility]hab Objective Data Objective Data [...] 04/27/25 14:17 SB (Rec: 04/27/25 14:17 SB [id number]) Nutrition Malnutrition Evidence of Yes Malnutrition Exists [...] % (Auto) 61.1, Lymph % (Auto) 19.7, [place] % (Auto) 15.1 H, Eos % (Auto) [...] ? Requested for PT OT eval and secondary social studies teacher to assist with discharge planning ? 05/03/2025; patient remains physical deconditioning. She is agreeable to being discharged with [facility] for [facility] this was discussed with patient's son Tan was in the room Charges/Coding Visit Charges Inpatient E&M: 94015 Subs Hosp L2 05/03/25 1137 Cosigner Signature (if applicable): CC: ~ Signed [facility]06-04-2025 Progress note Author Canelo Myers [facility] Note Date/Time May 02, 2025 11:07 am [facility] Medical Records Department [address] [place] [address] Progress Note - Hospitalist 05/02/25 0736 MR#: [id number] Acct: [id number] Name: JOSEPH RINCON Rep #:[id number] : 1975 50 From: Canelo Myers MD PCP: Dr. Abisai Haley MD Status:ADM IN Location: [place] [address] Reason for Visit Reason for Visit: Diagnoses [...] 04/27/25 14:17 SB (Rec: 04/27/25 14:17 SB [id number]) Nutrition Malnutrition Evidence of Yes Malnutrition Exists [...] % (Auto) 57.2, Lymph % (Auto) 22.5, [place] % (Auto) 15.8 H, Eos % (Auto) [...] ? Requested for PT OT eval and secondary social studies teacher to assist with discharge planning Charges/Coding Visit Charges Inpatient E&M: 33169 Subs Hosp L2 05/02/25 1107 <Electronically signed by Canelo Myers MD> Cosigner Signature (if applicable): CC: ~ Signed [facility] Work Phone: 1([phone]) 521-496806-04-2025 Progress note [facility] Medical Records Department [address] [place] [address] Progress Note - Hospitalist 05/02/25 0736 MR#: [id number] Acct: [id number] Name: JOSEPH RINCON Rep #:[id number] : 1975 50 From: Canelo Myers MD PCP: Dr. Abisai Haley MD Status:ADM IN Location: [place] [address] Reason for Visit Reason for Visit: Diagnoses [...] 04/27/25 14:17 SB (Rec: 04/27/25 14:17 SB [id number]) Nutrition Malnutrition Evidence of Yes Malnutrition Exists [...] % (Auto) 57.2, Lymph % (Auto) 22.5, [place] % (Auto) 15.8 H, Eos % (Auto) [...] ? Requested for PT OT eval and secondary social studies teacher to assist with discharge planning Charges/Coding Visit Charges Inpatient E&M: 65820 Subs Hosp L2 05/02/25 1107 Cosigner Signature (if applicable): CC: ~ Signed [facility]06-03-2025 Progress note Author Canelo Myers [facility] Note Date/Time May 01, 2025 9:31a m [facility] Medical Records Department [address] [place] [address] Progress Note - Hospitalist 05/01/25929 MR#: [id number] Acct: [id number] Name: JOSEPH RINCON Rep #:[id number] : 1975 50 From: Canelo Myers MD PCP: Dr. Abisai Haley MD Status:ADM IN Location: [place] [address] Reason for Visit Reason for Visit: Diagnoses [...] 04/27/25 14:17 SB (Rec: 04/27/25 14:17 SB [id number]) Nutrition Malnutrition Evidence of Yes Malnutrition Exists [...] ? Requested for PT OT eval and secondary social studies teacher to assist with discharge planning Charges/Coding Visit Charges Inpatient E&M: 76205 Subs Hosp L2 05/01/25 0931 <Electronically signed by Canelo Myers MD> Cosigner Signature (if applicable): CC: ~ Signed [facility] Work Phone: 1(449) 738-326106-03-2025 Progress note [facility] Medical Records Department [address] [facility] [place] [address] Progress Note - Hospitalist 05/01/25929 MR#: [id number] Acct: [id number] Name: JOSEPH RINCON Rep #:[id number] : 1975 50 From: Canelo Myers MD PCP: Dr. Abisai Haley MD Status:ADM IN Location: [place] [address] Reason for Visit Reason for Visit: Diagnoses [...] / 6807.5 1000 / 1000 Output Total Balance 7591.3333 / 8067.3333 6801.5 / 6801.5 1000 / 1000 Medical Nutrition Assessment Dietitian: Malnutrition Criteria Met Start: 04/27/25 14:17 Freq: Status: Active Protocol: Document 04/27/25 14:17 SB (Rec: 04/27/25 14:17 SB [id number]) Nutrition Malnutrition Evidence of Yes Malnutrition Exists [...] ? Requested for PT OT eval and secondary social studies teacher to assist with discharge planning Charges/Coding Visit Charges Inpatient E&M: 33527 Subs Hosp L2 05/01/25 0931 Cosigner Signature (if applicable): CC: ~ Signed [facility]06-02-2025 Progress note Author Canelo Myers [facility] Note Date/Time April 30, 2025 9:35a m [facility] Medical Records Department [address] [place] [address] Progress Note - Hospitalist 04/30/2514 MR#: [id number] Acct: [id number] Name: JOSEPH RINCON Rep #:[id number] : 1975 50 From: Canelo Myers MD PCP: Dr. Abisai Haley MD Status:ADM IN Location: [place] [address] Reason for Visit Reason for Visit: Diagnoses [...] 04/27/25 14:17 SB (Rec: 04/27/25 14:17 SB [id number]) Nutrition Malnutrition Evidence of Yes Malnutrition Exists [...] % (Auto) 59.8, Lymph % (Auto) 23.4, [place] % (Auto) 13.8 H, Eos % (Auto) [...] weight trends. Charges/Coding Visit Charges Inpatient E&M: 30607 Subs Hosp L2 04/30/25 0912 <Electronically signed by Canelo Myers MD> Sugar Signature (if applicable): CC: ~ Signed [facility] Work Phone: 1(243) 557-925706-02-2025 Progress note [facility] Medical Records Department [address] [facility] [place] [address] Progress Note - Hospitalist 04/30/25 0814 MR#: [id number] Acct: [id number] Name: JOSEPH RINCON Rep #:[id number] : 1975 50 From: Canelo Myers MD PCP: Dr. Abisai Haley MD Status:ADM IN Location: [place] [address] Reason for Visit Reason for Visit: Diagnoses [...] 04/27/25 14:17 SB (Rec: 04/27/25 14:17 SB [id number]) Nutrition Malnutrition Evidence of Yes Malnutrition Exists [...] % (Auto) 59.8, Lymph % (Auto) 23.4, [place] % (Auto) 13.8 H, Eos % (Auto) [...] weight trends. Charges/Coding Visit Charges Inpatient E&M: 95459 Subs Hosp L2 04/30/25 0935 Cosigner Signature (if applicable): CC: ~ Signed [facility]06-01-2025 Progress note Author Canelo Myers [facility] Note Date/Time April 29, 2025 8:44a m [facility] Medical Records Department [address] [place] [address] Progress Note - Hospitalist 04/29/25 0733 MR#: [id number] Acct: [id number] Name: JOSEPH RINCON Rep #:[id number] : 1975 50 From: Canelo Myers MD PCP: Dr. Abisai Haley MD Status:ADM IN Location: [place] [address] Reason for Visit Reason for Visit: Diagnoses [...] 04/27/25 14:17 SB (Rec: 04/27/25 14:17 SB [id number]) Nutrition Malnutrition Evidence of Yes Malnutrition Exists [...] 72.9 H, Lymph % (Auto) 14.1 L, [place] % (Auto) 10.9 H, Eos % (Auto) [...] 50 Minutes Charges/Coding Visit Charges Inpatient E&M: 68949 Subs Hosp L3 04/29/25 0844 <Electronically signed by Canelo Myers MD> Cosigner Signature (if applicable): CC: ~ Signed [facility] Work Phone: 1(952) 413-697006-01-2025 Progress note [facility] [address] [place] [address] Progress Note - Hospitalist 04/29/25 0733 MR#: [id number] Acct: [id number] Name: JOSEPH RINCON Rep #:[id number] : 1975 50 From: Canelo Myers MD PCP: Dr. Abisai Haley MD Status:ADM IN Location: [place] [address] Reason for Visit Reason for Visit: Diagnoses [...] 04/27/25 14:17 SB (Rec: 04/27/25 14:17 SB [id number]) Nutrition Malnutrition Evidence of Yes Malnutrition Exists [...] 72.9 H, Lymph % (Auto) 14.1 L, [place] % (Auto) 10.9 H, Eos % (Auto) [...] 50 Minutes Charges/Coding Visit Charges Inpatient E&M: 72974 Subs Hosp L3 04/29/25 0844 Cosigner Signature (if applicable): CC: ~ Signed [facility]05-31-2025 Progress note Author Canelo Myers [facility] Note Date/Time April 28, 2025 9:47a m [facility] Medical Records Department [address] [place] [address] Progress Note - Hospitalist 04/28/25 0942 MR#: [id number] Acct: [id number] Name: JOSEPH RINCON Rep #:[id number] : 1975 50 From: Canelo Myers MD PCP: Dr. Abisai Haley MD Status:ADM IN Location: [place] [address] Reason for Visit Reason for Visit: Diagnoses [...] 04/27/25 14:17 SB (Rec: 04/27/25 14:17 SB [id number]) Nutrition Malnutrition Evidence of Yes Malnutrition Exists [...] 78.0 H, Lymph % (Auto) 12.5 L, [place] % (Auto) 8.0, Eos % (Auto) 0.8, [...] 52 Minutes Charges/Coding Visit Charges Inpatient E&M: 90829 Subs Hosp L3 04/28/25 0947 <Electronically signed by Canelo Myers MD> Cosigner Signature (if applicable): CC: ~ Signed [facility] Work Phone: 1(481) 283-561005-31-2025 Progress note [facility] Medical Records Department [address] [place] [address] Progress Note - Hospitalist 04/28/25 0942 MR#: [id number] Acct: [id number] Name: JOSEPH RINCON Rep #:[id number] : 1975 50 From: Canelo Myers MD PCP: Dr. Abisai Haley MD Status:ADM IN Location: [place] [address] Reason for Visit Reason for Visit: Diagnoses [...] 04/27/25 14:17 SB (Rec: 04/27/25 14:17 SB [id number]) Nutrition Malnutrition Evidence of Yes Malnutrition Exists [...] 78.0 H, Lymph % (Auto) 12.5 L, [place] % (Auto) 8.0, Eos % (Auto) 0.8, [...] 52 Minutes Charges/Coding Visit Charges Inpatient E&M: 45196 Subs Hosp L3 04/28/25 0947 Cosigner Signature (if applicable): CC: ~ Signed [facility]05-30-2025 Progress note Author Canelo Myers [facility] Note Date/Time April 27, 2025 1:15p [facility] Medical Records Department [address] [place] [address] Progress Note - Hospitalist 04/27/25 0939 MR#: [id number] Acct: [id number] Name: JOSEPH RINCON Rep #:[id number] : 1975 50 From: Canelo Myers MD PCP: Dr. Abisai Haley MD Status:ADM IN Location: [place] [address] Reason for Visit Reason for Visit: Diagnoses [...] (Auto) 84.6 H, Lymph % (Auto) 7.3L, [place] % (Auto) 7.0, Eos % (Auto) 0.0, [...] Clarity Clear, Urine pH 6.0, Ur Specific Hawley 1.010, Urine Protein 30 H, Urine Glucose [...] (Auto) 84.0 H, Lymph % (Auto)7.3 L, [place] % (Auto) 7.9, Eos % (Auto) 0.1, [...] fatty infiltration of the liver. Reading Location: [facility] Physical Exam Narrative GENERAL: cooperative HEENT: [...] 50 Minutes Charges/Coding Visit Charges Inpatient E&M: 24981 [facility] Hosp 04/27/25 2025 <Electronically signed by Canelo Myers MD> Cosigner Signature (if applicable): CC: ~ Signed [facility] Work Phone: 1(548) 645-406205-30-2025 Progress note [facility] Medical Records Department [address] [place] [address] Progress Note - Hospitalist 04/27/25 0939 MR#: [id number] Acct: [id number] Name: JOSEPH RINCON Rep #:[id number] : 1975 50 From: Canelo Myers MD PCP: Dr. Abisai Haley MD Status:ADM IN Location: [place] [address] Reason for Visit Reason for Visit: Diagnoses [...] (Auto) 84.6 H, Lymph % (Auto) 7.3L, [place] % (Auto) 7.0, Eos % (Auto) 0.0, [...] Clarity Clear, Urine pH 6.0, Ur Specific [place] 1.010, Urine Protein 30 H, Urine Glucose [...] (Auto) 84.0 H, Lymph % (Auto)7.3 L, [place] % (Auto) 7.9, Eos % (Auto) 0.1, Baso % (Auto) 0.3, Absolute Neuts (auto) 9.6 H, Absolute Lymphs (auto) 0.83, Nucleated RBC % 0, PT 12.9, INR 1.0, [id number], Potassium 3.8, Chloride 96 L, Carbon Dioxide [...] fatty infiltration of the liver. Reading Location: [facility] Physical Exam Narrative GENERAL: cooperative HEENT: [...] 50 Minutes Charges/Coding Visit Charges Inpatient E&M: 58582 Subs Hosp L3 04/27/25 1315 Cosigner Signature (if applicable): CC: ~ Signed [facility]05-29-2025 History and physical note Author Julius Moncada [facility] Note Date/Time April 26, 2025 8:28p m [facility] Medical Records Department [address] [place] [address] H&P Exam - Hospitalist 04/26/25 1718 MR#: [id number] Acct: [id number] Name: JOSEPH RINCON Rep #:[id number] : 1975 50 From: Julius Moncada MD PCP: Dr. Abisai Haley MD Status:ADM IN Location: [facility] [id number] HPI - General General Date of [...] phosphatase 122 total protein 7.7, albumin 4.5 [facility] Medical History Strain of left foot [...] (Auto) 84.6 H, Lymph % (Auto) 7.3L, [place] % (Auto) 7.0, Eos % (Auto) 0.0, [...] Clarity Clear, Urine pH 6.0, Ur Specific Haw[place] 1.010, Urine Protein 30 H, Urine Glucose [...] fatty infiltration of the liver. Reading Location: [id number] Assessment & Plan Assessment/Plan (1) Pancreatitis: PLAN: [...] - No concerns regarding exocrine insufficiency - Mora pain control with Tylenol and opioids - [...] Moncada MD; Dr. Abisai Haley MD~ Signed [facility] Work Phone: 1(750) 100-427505-29-2025 History and physical note [facility] Medical Records Department [address] [place] [address] H&P Exam - Hospitalist 04/26/25 1718 MR#: [id number] Acct: [id number] Name: JOSEPH RINCON Rep #:[id number] : 1975 50 From: Julius Moncada MD PCP: Dr. Abisai Haley MD Status:ADM IN Location: [place] [address] HPI - General General Date of Admission: [...] phosphatase 122 total protein 7.7, albumin 4.5 [facility] Medical History Strain of left foot [...] (Auto) 84.6 H, Lymph % (Auto) 7.3L, [place] % (Auto) 7.0, Eos % (Auto) 0.0, [...] Clarity Clear, Urine pH 6.0, Ur Specific Haw[place] 1.010, Urine Protein 30 H, Urine Glucose [...] fatty infiltration of the liver. Reading Location: [id number] Assessment & Plan Assessment/Plan (1) Pancreatitis: PLAN: [...] - No concerns regarding exocrine insufficiency - Mora pain control with Tylenol and opioids - [...] Moncada MD; Dr. Abisai Haley MD~ Signed [facility]05-29-2025 Evaluation note* Diagnosis Onset Date Resolution Status Admit Date Hypokalemia acute April 26 5:13pm Intractable abdominal pain acute April 26, 2025 5:13pm Nausea & vomiting acute March 5:13pm Pancreatitis acute April 26 5:13pm [facility] Work Phone: 1(132) 962-919605-29-2025 Evaluation note* Diagnosis Onset Date Resolution Status Admit Date Hypokalemia inactive April 26 5:13pm Intractable abdominal pain inactive April 26, 2025 5:13pm Nausea & vomiting inactive March 5:13pm Pancreatitis inactive April 26 5:13pm Admitted to alcohol detoxification center acute May 25, 2025 12:33am [facility] Work Phone: [phone]) [phone] Evaluation note* Diagnosis Onset Date Resolution Status Admit Date Hypokalemia inactive April 26 5:13pm Intractable abdominal pain inactive April 26, 2025 5:13pm Nausea & vomiting inactive March 5:13pm Pancreatitis inactive April 26 5:13pm Admitted to alcohol detoxification center inactive May 25, 2025 12:33am Abdominal pain acute June 12:56pm Acute alcoholic pancreatitis acute July 17, 2025 12:56pm History of diabetes mellitus acute July 17, 2025 12:56pm [facility] Work Phone: 1(805) 334-855405-29-2025 Discharge summary Author Humphrey Garcia [facility] Note Date/Time April 26, 2025 4:45p m [facility] Medical Records Department [address] [place] [address] Emergency Department Summary 04/26/25 MR#: [id number] Acct: [id number] Name: JOSEPH RINCON Rep #:[id number] : 1975 50 From: Humphrey Garcia DO [...] normal colored stool. Patient denies any recentcontacts [facility] Medical History Strain of left [...] following commands knew that she was at [facility] the year is 2024 Skin: Warm, [...] 84.6 H Lymph % (Auto) 7.3 L [place] % (Auto) 7.0 Eos % (Auto) 0.0 [...] Clarity Clear Urine pH 6.0 Ur Specific Hawley 1.010 Urine Protein 30 H Urine Glucose [...] fatty infiltration of the liver. Reading Location: [id number] Discharge Plan Triage Chief Complaint: Abd Pain [...] Provider] - Print Language: Fijian Disposition Disposition: [facility] What to do if you have Problems For any increased pain, shortness of breath, bleeding, nausea or vomiting, chestpain, or any unexpected problems, contact your Primary Care Provider. Call [facility] ([phone]) or report to the closest Emergency Room. Call 911 if necessary. 04/26/25 1645 <Electronically signed by Humphrey Garcia DO> Cosigner Signature (if applicable): CC: Dr. Abisai Haley MD ~ Signed [facility] Work Phone: 1(193) [phone] Discharge summary [facility] Medical Records Department [address] [place] [address] Emergency Department Summary 04/26/25 MR#: [id number] Acct: [id number] Name: JOSEPH RINCON Rep #:[id number] : 1975 50 From: Humphrey Garcia DO [...] normal colored stool. Patient denies any recentcontacts [facility] Medical History Strain of left [...] following commands knew that she was at [facility] the year is 2024 Skin: Warm, [...] 84.6 H Lymph % (Auto) 7.3 L [place] % (Auto) 7.0 Eos % (Auto) 0.0 [...] Clarity Clear Urine pH 6.0 Ur Specific Hawley 1.010 Urine Protein 30 H Urine Glucose [...] fatty infiltration of the liver. Reading Location: [facility] Discharge Plan Triage Chief Complaint: Abd Pain [...] Language: Fijian Disposition Disposition: [facility] What to do if you have Problems For any increased pain, shortness of breath, bleeding, nausea or vomiting, chestpain, or any unexpected problems, contact your Primary Care Provider. Call [facility] ([phone]) or report tothe closest Emergency Room. Call 911 if necessary. 04/26/25 1645 Cosigner Signature (if applicable): CC: Dr. Abisai Haley MD ~ Signed [facility]05-29-2025 Radiology Diagnostic study note [facility] [address] [place], [place] [address] Abdomen/Pelvis W IV Cont ONLY MR#: [id number] Acct: [id number] Name: JOSEPH RINCON Rep #: [id number] : 1975 F 50 From: Jhonny Roger MD PCP: Dr. Abisai Haley MD Status: REG ER Study:Abdomen/Pelvis W IV Cont ONLY Date of E xam: 04/26/25 Exam# [id number] Ordering Dr: Reina Garcia DO PROCEDURE: ABDOMEN/PELVIS [...] fatty infiltration of the liver. Reading Location: [id number] CC: Dr. Abisai Haley MD; Dr. Humphrey Garcia DO ~ Strategic Planner: Signed [facility]05-15-2025 Hospital Discharge instructions Additional Instructions Plenty of fluids and rest. Sleep on the main floor tonight. Due to fall risk. No driving for the next 24 hours. Use your Protonix at home for stomach discomfort due to the alcohol. Follow-up with your doctor if not improving or return if worse.[facility] Work Phone: 1(208) 773-208805-14-2025 Radiology Diagnostic study note [facility] [address] [place] [address] Chest PA and Lateral MR#: [id number] Acct: [id number] Name: JOSEPH RINCON Rep #: [id number] : 1975 F 50 From: Jacque Martinez MD PCP: Dr. Abisai Haley MD Status: REG ER Study:Chest PA and Lateral Date of Exam: 04/11/25 Exam# [id number] Ordering Dr: Sheron Colon MD PROCEDURE: CHEST PA AND LATERAL 04/11/2025 REASON FOR EXAM: CHEST PAIN TECHNIQUE: Frontal and lateral views of the chest. COMPARISON: 04/04/2025 FINDINGS: Hardware: None Heart: The heart size is normal. Mediastinum: The mediastinal contour is unremarkable. Lungs: The lungs are clear. Bones: The bones are unremarkable. RAD/Chest PA and Lateral IMPRESSION: NO ACUTE FINDINGS. Reading Location: [facility] CC: Dr. Abisai Haley MD; Dr. Francisco Colon MD ~ Strategic Planner: Signed [facility]05-07-2025 Discharge summary [facility] Medical Records Department [address] [place] [address] Emergency Department Summary 04/04/25 MR#: [id number] Acct: [id number] Name: JOSEPH RINCON Rep #:[id number] : 1975 50 From: Imani Ruelas PCP: [...] 77.0 H Lymph % (Auto) 14.0 L [place] % (Auto) 7.8 Eos % (Auto) 0.2 [...] process is seen. Negative examination. [facility]/Pelvis CT 04/04/25 12:02 IMPRESSION: 1. [...] 4. Additional description as above. Reading Location: [facility] Rhythm Strip Rhythm Strip: Sinus [...] your Primary Care Provider. Call [facility] ([phone]) or report tothe closest Emergency Room. Call 911 if necessary. 04/04/25 7238 Cosigner Signature (if applicable): CC: Dr. Abisai Haley MD ~ Signed [facility]05-07-2025 Discharge summary Author [facility] Note Date/Time April 04, 2025 4:07pm [facility] Medical Records Department [address] [place] [address] Emergency Department Summary 04/04/25 MR#: [id number] Acct: [id number] Name: JOSEPH RINCON Rep #:[id number] : 1975 50 From: Imani Ruelas PCP: [...] had intermittent hot flashes and then chills/sweats. [facility] Medical History Strain of left [...] 77.0 H Lymph % (Auto) 14.0 L [place] % (Auto) 7.8 Eos % (Auto) 0.2 [...] process is seen. Negative examination. Reading Location: [facility] Abdomen/Pelvis CT 04/04/25 12:02 IMPRESSION: 1. Correlate [...] 4. Additional description as above. Reading Location: [id number] Rhythm Strip Rhythm Strip: Sinus Tach Rate: [...] Abisai Haley MD [Primary Care Provider] - FriendFrank DO [Med Staff - Active Staff] - Print Language: Fijian Disposition Disposition: Home, Self Care What to do if you have Problems For any increased pain, shortness of breath, bleeding, nausea or vomiting, chestpain, or any unexpected problems, contact your Primary Care Provider. Call [facility] ([phone]) or report to the closest Emergency Room. Call 911 if necessary. 04/04/25 1607 <Electronically signed by Imani Knight DO> Cosigner Signature (if applicable): CC: Dr. Abisai Haley MD ~ Signed [facility] Work Phone: [phone]) 365-337705-07-2025 Radiology Diagnostic study note [facility] [address] [place], [place] [id number] Abdomen/Pelvis W IV Cont ONLY MR#: [id number] Acct: [id number] Name: JOSEPH RINCON Rep #: [id number] : 1975 F 50 From: Odalis Giraldo MD PCP: Dr. Abisai Haley MD Status: REG ER Study:Abdomen/Pelvis W IV Cont ONLY Date of E xam: 04/04/25 Exam# [id number] Ordering Dr: Selene Knight DO PROCEDURE: ABDOMEN/PELVIS [...] lobe airspace disease is new from prior, [id number] x 24 mm (series 2, image 11). [...] 4. Additional description as above. Reading Location: [facility] CC: Dr. Abisai Haley MD; Dr. Imani Knight DO ~ Strategic Planner: Signed [facility]05-07-2025 Radiology Diagnostic study note [facility] [address] [place] [address] Chest 1 View (Portable) MR#: [id number] Acct: [id number] Name: JOSEPH RINCON Rep #: [id number] : 1975 F 50 From: Guido Valles MD PCP: Dr. Abisai Haley MD Status: REG ER Study:Chest 1 View (Portable) Date of Exam: 04/04/25 Exam# [id number] Ordering Dr: Selene Knight DO PROCEDURE: CHEST 1 VIEW (PORTABLE) 04/04/2025 REASON FOR EXAM: CHEST PAIN TECHNIQUE: Frontal view of the chest. COMPARISON: Chest x-ray 11/12/2024 RAD/Chest 1 View (Portable) IMPRESSION: Lungs appear clear throughout. No pleural effusion or pneumothorax is seen. The cardiomediastinal silhouette is stable, without evidence of cardiomegaly. No acute osseous process is seen. Negative examination. Reading Location: [place] [address] CC: Dr. Abisai Haley MD; Dr. Imani Knight DO ~ Strategic Planner: Signed [facility]05-25-2024 NoteHNO ID: [id number] Author: ARETHA SCHOFIELD APRN.DRAFTER GEOLOGICAL Service: ? Author Type: Nurse Practitioner Type: [...] drugs Objective Physical Exam (more content not included)...[facility]05-25-2024 Instructions * Patient Instructions* Aretha Schofield [...] illness Aretha Schofield APRN.CNP documented in this encounterOhio[facility] History of Present illness Narrative* Aretha Schofield [...] Discussed expected course of illness Aretha Schofield APRN.DRAFTER GEOLOGICAL documented in this encounterOhiohealth [facility]08-31-2023 Discharge summary Author Caprice Jerry [facility] July 29, 2023 5:41pm Note Date/Time July 29, 2023 2: 37pm [facility] Medical Records Department [address] [place] [address] Emergency Department Summary 07/29/23 MR#: [id number] Acct: [id number] Name: JOSEPH RINCON Rep #:[id number] : 1975 48 From: Caprice Jerry MD [...] time that did not show any disease. [facility] Medical History Acute lumbar myofascial [...] % (Auto) 63.7 Lymph % (Auto) 25.4 [place] % (Auto) 8.5 Eos % (Auto) 1.6 [...] your Primary Care Provider. Call [facility] ([phone]) or report to the closest Emergency Room. Call 911 if necessary. 07/29/23 1741 <Electronically signed by Caprice Jerry MD> Cosigner Signature (if applicable): CC: Milana Garcia DO ~ Signed [facility] Work Phone: 1(976) 577-456706-27-[address] Jerry [facility] May 25, 2023 2:53am Note Date/Time May 24, 2023 11:2 0pm [facility] Medical Records Department [address] [place] [address] Emergency Department Summary 05/24/23 MR#: [id number] Acct: [id number] Name: JOSEPH RINCON Rep #:[id number] : 1975 48 From: Caprice Jerry MD PCP: Milana M Jose, DO Status:REG E R Location: ED HPI [...] blood pressure. She just received a 14-day radio communication coordinator in the mail that she will wear. [...] but there has never been seizures documented. [facility] Medical History Acute lumbar myofascial [...] 40.3 L Lymph % (Auto) 45.0 H [place] % (Auto) 11.4 H Eos % (Auto) [...] Color Urine Clarity Urine pH Ur Specific Hawley Urine Protein Urine Glucose (UA) Urine Ketones [...] (Auto) Neut % (Auto) Lymph % (Auto) [place] % (Auto) Eos % (Auto) Baso % [...] Clarity Clear Urine pH 6.5 Ur Specific Hawley 1.005 Urine Protein Negative Urine Glucose (UA) [...] Patient's had no significant arrhythmias noted on radio communication coordinator throughout her ED stay. Portable chest x-ray [...] been worked up. She just got her radio communication coordinator in the mail tonight to put on. She states her doctor iskamila talking about a possible tilt table test. At this time she does not want to stay in the hospital and I do feel with prior work-ups this is reasonable. Patient will follow-up closely with her physician and return instructions been provided. Discharge Plan Triage Chief Complaint: Syncope ED Provider: Capirce Jerry Dx/Rx/DC Orders Clinical Impression: Syncope and [...] your Primary Care Provider. Call [facility] ([phone]) or report to the closest Emergency Room. Call 911 if necessary. 05/25/23 025 <Electronically signed by Caprice Jerry MD> Troyigner Signature (if applicable): CC: Milana Garcia DO ~ Signed [facility] Work Phone: 1(854) 488-548506-07-[address] Dyer [facility] May 05, 2023 12:31am Note Date/Time May 04, 2023 10:36 pm [facility] Medical Records Department [address] [place] [address] Emergency Department Summary 05/04/23 MR#: [id number] Acct: [id number] Name: JOSEPH RINCON Rep #:[id number] : 1975 48 From: John Dyer DO [...] a cardiac cath 11/19/2022 which was normal. [facility] Medical History Acute lumbar myofascial [...] % (Auto) 51.3 Lymph % (Auto) 35.6 [place] % (Auto) 9.4 Eos % (Auto) 2.7 [...] MD at 22:33 EDT , Brain CT 05/04/23 22:35 IMPRESSION: No [...] your Primary Care Provider. Call [facility] ([phone]) or report to the closest Emergency Room. Call 911 if necessary. 05/05/23 003 <Electronically signed by John Dyer DO> Cosigner Signature (if applicable): CC: Milana Garcia DO ~ Signed [facility] Work Phone: 1(155) 936-105805-13-[address] Johnson [facility] April 10, 2023 3:15pm Note Date/Time April 10, 2023 3:15p taisha [facility] Medical Records Department [address] [place] [address] Progress Note - Hospitalist 04/10/23 1511 MR#: [id number] Acct: [id number] Name: JOSEPH RINCON Rep #:[id number] : 1975 48 From: Radha Johnson DO PCP: Milana Garcia, DO Status:ADM I N Location: [place] [address] Hospitalist Note Is a 48-year-old white female [...] some issues for her at baseline. 04/10/23 6650 <Electronically signed by Radha Johnson DO> Cosigner Signature (if applicable): CC: ~ Signed [facility] Work Phone: [phone]) 828-202205-13-[address] Jacobs [facility] April 10, 2023 7:13am Note Date/Time April 09, 2023 11:06 pm [facility] Medical Records Department [address] [place] [address] Emergency Department Summary 04/09/23 MR#: [id number] Acct: [id number] Name: JOSEPH RINCON Rep #:[id number] : 1975 48 From: David Ruelas PCP: Milana Garcia, DO Status:ADM I N Location: [place] [address] HPI History of Present Illness Chief Complaint: [...] TAD Risk Factors: Negative for Hypertension PFSH PFSH Medical History Acute lumbar myofascial strain Anxiety Depression Diabetes History of left heart catheterization (LHC) (~11/19/22) HTN (hypertension) Pancreatitis Sleep apnea Strain of left hip Home Medications metformin 500 mg tablet 500 ea PO BID DIABETES 10/31/22 [History Last Taken 12/20/22 21:30] metoprolol succinate 50 mg tablet,extended release [...] 85.1 H Lymph % (Auto) 11.3 L [place] % (Auto) 1.6 Eos % (Auto) 0.4 [...] Color Urine Clarity Urine pH Ur Specific Hawley Urine Protein Urine Glucose (UA) Urine Ketones [...] (Auto) Neut % (Auto) Lymph % (Auto) [place] % (Auto) Eos % (Auto) Baso % [...] Clarity Clear Urine pH 6.5 Ur Specific Hawley 1.010 Urine Protein Negative Urine Glucose (UA) [...] (Auto) Neut % (Auto) Lymph % (Auto) [place] % (Auto) Eos % (Auto) Baso % [...] Color Urine Clarity Urine pH Ur Specific Hawley Urine Protein Urine Glucose (UA) Urine Ketones [...] interval, and QTc intervals were all normal. Greenwood was normal. There are no acute ST [...] (42), Including time spent:, Discussing w/Patient &/or Family/Wedding Transportation Driver, Discussing w/Consultants, Arranging Admission or Transfer and Performing Direct Patient Care at Bedside Discharge Plan Dx/Rx/DC Orders Clinical Impression: High anion gap metabolic acidosis, Hypotension, Lactic acidosis Disposition Disposition: Acute Care Hospital [facility] Discharge Date/Time: 04/10/23 03:28 What to do if you have Problems For any increased pain, shortness of breath, bleeding, nausea or vomiting, chestpain, or any unexpected problems, contact your Primary Care Provider. Call [facility] ([phone]) or report to the closest Emergency Room. Call 911 if necessary. 04/10/23712 <Electronically signed by David Jacobs DO> Cosigner Signature (if applicable): CC: Milana Garcia DO ~ Signed [facility] Work Phone: [phone]) 784-510705-13-2023 History and physical note Author Dr. Kiran [facility] April 10, 2023 5:36am Note Date/Time April 10, 2023 1:28a m [facility] Medical Records Department [address] [place] [address] H&P Exam - Hospitalist 04/10/23 0128 MR#: [id number] Acct: [id number] Name: JOSEPH RINCON Rep #:[id number] : 1975 48 From: Young Kiran MD PCP: Milana Garcia DO Status:ADM I N Location: [place] [id number] HPI - General General Date of [...] before presentation patient had multiple loose stools. [facility] Medical History Acute lumbar myofascial strain Anxiety [...] cranial nerves II through XII grossly intact. Stinnett- Hallpike maneuver to the right was positive [...] 85.1 H, Lymph % (Auto) 11.3 L, [place] % (Auto) 1.6, Eos % (Auto) 0.4, [...] Lovenox ordered. Charges/Coding Visit Charges Inpatient E&M: 92922 Init Hosp L3 04/10/23 0536 <Electronically signed by Young Kiran MD> Cosigner Signature (if applicable): CC: Dr. Young Kiran MD; Milana Garcia DO~ Signed [facility] Work Phone: [phone]) [phone] Gaviria [facility] March 22, 2023 10:43pm Note Date/Time March 22, 2023 7:0 6pm [facility] Medical Records Department [address] [place] [address] Emergency Department Summary 03/22/23 MR#: [id number] Acct: [id number] Name: JOSEPH RINCON Rep #:[id number] : 1975 47 From: Lauri Gaviria MD [...] Prior similar symptoms: No Recent Illness/Hospitalization: No [facility] Medical History Acute lumbar myofascial strain Anxiety [...] % (Auto) 64.4 Lymph % (Auto) 22.7 [place] % (Auto) 9.9 Eos % (Auto) 2.0 [...] Color Urine Clarity Urine pH Ur Specific Hawley Urine Protein Urine Glucose (UA) Urine Ketones Urine Occult Blood Urine Nitrite Urine Bilirubin Urine Urobilinogen Ur Leukocyte Esterase Urine RBC Urine WBC Ur Squamous Epith Cells Amorphous Sediment Urine Bacteria Urine Mucus 03/22/23 20:20 WBC RBC Hgb Hct MCV MCH MCHC RDW Std Deviation RDW Coeff of Braxton Plt Count MPV Immature Gran % (Auto) Neut % (Auto) Lymph % (Auto) [place] % (Auto) Eos % (Auto) Baso % [...] Sl. Cloudy Urine pH 6.5 Ur Specific Hawley 1.005 Urine Protein Negative Urine Glucose (UA) [...] duration 86 ms. QT duration 408 ms. Greenwood is normal.) Treatment and Re-Evaluation :: Patient [...] symptoms. She was instructed to follow-up with anupor to have her blood work reassessed since [...] your Primary Care Provider. Call [facility] ([phone]) or report to the closest Emergency Room. Call 911 if necessary. 03/22/23 7480 <Electronically signed by Lauri Gaviria MD> Cosigner Signature (if applicable): CC: Milana Garcia, DO ~ Signed [facility] Work Phone: [phone]) 511-849904-24-2023 Hospital Discharge instructions Additional Instructions Call your doctor in the morning to have repeat blood work in 3 to 5 days. Let them know that your creatinine is elevated.[facility] Work Phone: [phone]) 419-120910-09-2022 Hospital Discharge instructions Additional Instructions Plenty of fluids and rest. No alcohol for the next 48 hours. No driving for the next 24 hours. Follow-up with your primary care physician. They can get an EEG to further evaluate you for possible seizures. Your labs and CAT scan tonight were unremarkable other than your alcohol level that was 237.[facility] Work Phone: [phone]) 499-463008-23-2022 Instructions* Patient Instructions* Samantha Deleon APRN.DRAFTER GEOLOGICAL - 07/21/2022 7:38 PM EDT SCIATICA: Your [...] bladder or bowel control. documented in this encounterOhio[facility]08-23-2022 History of Present illness Narrative* Sabrina Hairston [...] 21, 2022 7:16 PM documented in this encounterOhiohealth [facility]08-23-2022 History of Present illness Narrative* Samantha Deleon APRN.CNP - 07/21/2022 7:10 PM EDT This note was created using [employer] Pharm[employer]. 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 The history is provided by the patient. No desk manager was used. Musculoskeletal Problem This is a [...] Flexeril Follow up with PCP Samantha Deleon APRN.DRAFTER GEOLOGICAL documented in this encounterOhiohealth [facility]08-19-2019 History of Past illness Narrative* Problem Noted [...] of this encounter (statuses as of 07/21/2022) [facility] Author Sho Leyva [facility] Note Date/Time May 28, 2025 2:19 pm [facility] Medical Records Department [address] [place] [address] Counseling Note - Pharmacy 05/28/25 1332 MR#: [id number] Acct: [id number] Name: JOSEPH RINCON Rep #:[id number] : 1975 50 From: Sho Leyva PCP: Dr. Abisai Haley MD Status:ADM IN Location: [place] [address] Pharmacy [place] [facility] has performed discharge medication reconciliation for this patient. The patient's discharge medication list was reviewed for discrepancies and discrepancies were resolved. Medications at Discharge Home Medications metformin 500 mg tablet 500 ea PO BID DIABETES 10/31/22 aspirin 81 mg chewable tablet 81 mg PO DAILY@0800 #30 tabs 11/19/22 bupropion HCl 150 mg 24 hr tablet, extended release 150 mg PO DAILY 01/21/23 montelukast 10 mg tablet (Singulair) 10 mg PO DAILY 04/09/23 pantoprazole 40 mg tablet,delayed release 40 mg PO BID 05/04/23 cholecalciferol (vitamin D3) 50 mcg (2,000 unit) capsule 50 mcg PO DAILY 08/25/23 magnesium 250 mg tablet 250 mg PO DAILY 08/25/23 albuterol sulfate 90 mcg/actuation aerosol inhaler 2 puff inhalation Q6H PRN shortness of breath or wheezing #8.5 grams 04/27/24 empagliflozin 25 mg tablet (Jardiance) 25 mg PO DAILY 11/12/24 metoprolol succinate 25 mg tablet,extended release 24 hr 25 mg PO DAILY 11/12/24 amlodipine 5 mg tablet 5 mg PO DAILY 04/04/25 buspirone 5 mg tablet 5 mg PO TID PRN anxiety 04/04/25 hydroxyzine HCl 10 mg tablet 10 mg PO TID PRN PRN anxiety 04/04/25 citalopram 40 mg tablet 40 mg PO DAILY 04/11/25 levocetirizine 5 mg tablet 5 mg PO DAILY 04/11/25 lisinopril 40 mg tablet 40 mg PO DAILY 04/11/25 atorvastatin 40 mg tablet 40 mg PO DAILY #30 tabs 04/16/25 budesonide-formoterol HFA 160 mcg-4.5 mcg/actuation aerosol inhaler 2 puff inhalation BID SOB 04/26/25 glimepiride 4 mg tablet 4 mg PO DAILY #30 tabs 05/06/25 05/28/25 1332 <Electronically signed by Sho Leyva> Date _ Sho Leyva [facility] Signature (if applicable): Date CC: ~ Signed [facility] Work Phone: Discharge summary Author Dr. Johnson [facility] April 11, 2023 9:49am Note Date/Time April 11, 2023 9:39a m [facility] Medical Records Department [facility] [place] [address] Discharge Summary 04/11/23 0936 MR#: [id number] Acct: [id number] Name: JOSEPH RINCON Rep #:[id number] : 1975 48 From: Radha Johnson DO PCP: Milana Garcia DO Status:ADM I N Location: [place] [address] Providers Date of Admission: 04/10/23 Date of [...] % (Auto) 67.1, Lymph % (Auto) 23.8, [place] % (Auto) 7.8, Eos % (Auto) 0.7, [...] Self Care Charges/Coding Visit Charges Inpatient E&M: 35628 Disch Hosp >30min 04/11/23 0949 <Electronically signed by Radha Johnson DO> Cosigner Signature (if applicable): CC: Dr. Radha Johnson DO; Milana Garcia DO~ Signed [facility] Work Phone: Discharge summary Author Mao Becker [facility] Note Date/Time May 06, 2025 1:22p [facility] Medical Records Department [address] [place] [address] Instructions for Home/Discharge Instructions 05/06/25 1312 MR#: [id number] Acct: [id number] Name: JOSEPH RINCON Rep #:[id number] : 1975 50 From: Mao Becker DO [...] Becker DO>Mao Becker DO CC: Dr. Julius Mnocada MD; Dr. Abisai Haley MD; Dr. Canelo Myers MD ~ Signed [facility] Work Phone: Discharge summary Author Mao Becker [facility] Note Date/Time May 28, 2025 1:16 pm [facility] Medical Records Department [address] [place] [address] Discharge Summary 05/28/25 1313 MR#: [id number] Acct: [id number] Name: JOSEPH RINCON Rep #:[id number] : 1975 50 From: Mao Becker DO PCP: Dr. Abisai Haley MD Status:ADM IN Location: [facility] [id number] Providers Date of Admission: 05/25/25 Date of Discharge: 05/28/25 Primary Care Physician: Abisai Haley MD Reason For Visit: ETOH DETOXIFICATION, WITHDRAWL Diagnosis Discharge Diagnosis (1) Admitted to alcohol detoxification center: Status: Acute Plan 1. 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 #2 hypomagnesemia-magnesium supplementation is being given to the patient, her magnesium level today was #3 essential hypertension-patient will remain on her present medication #4 hyperlipidemia-patient is on a statin #5 type 2 diabetes-patient's blood sugars will be monitored, sliding scale insulin will be given as necessary Total clinical time spent by myself addressing the patient's medical issues, reviewing all of her data, and collaborating with patient's care team: 35-minute Medications at Discharge Home Medications metformin 500 mg tablet 500 ea PO BID DIABETES 10/31/22 aspirin 81 mg chewable tablet 81 mg PO DAILY@0800 #30 tabs 11/19/22 bupropion HCl 150 mg 24 hr tablet, extended release 150 mg PO DAILY 01/21/23 montelukast 10 mg tablet (Singulair) 10 mg PO DAILY 04/09/23 pantoprazole 40 mg tablet,delayed release 40 mg PO BID 05/04/23 cholecalciferol (vitamin D3) 50 mcg (2,000 unit) capsule 50 mcg PO DAILY 08/25/23 magnesium 250 mg tablet 250 mg PO DAILY 08/25/23 albuterol sulfate 90 mcg/actuation aerosol inhaler 2 puff inhalation Q6H PRN shortness of breath or wheezing #8.5 grams 04/27/24 empagliflozin 25 mg tablet (Jardiance) 25 mg PO DAILY 11/12/24 metoprolol succinate 25 mg tablet,extended release 24 hr 25 mg PO DAILY 11/12/24 amlodipine 5 mg tablet 5 mg PO DAILY 04/04/25 buspirone 5 mg tablet 5 mg PO TID PRN anxiety 04/04/25 hydroxyzine HCl 10 mg tablet 10 mg PO TID PRN PRN anxiety 04/04/25 citalopram 40 mg tablet 40 mg PO DAILY 04/11/25 levocetirizine 5 mg tablet 5 mg PO DAILY 04/11/25 lisinopril 40 mg tablet 40 mg PO DAILY 04/11/25 atorvastatin 40 mg tablet 40 mg PO DAILY #30 tabs 04/16/25 budesonide-formoterol HFA 160 mcg-4.5 mcg/actuation aerosol inhaler 2 puff inhalation BID SOB 04/26/25 glimepiride 4 mg tablet 4 mg PO DAILY #30 tabs 05/06/25 Hospital Course Operations None Procedures None Summary of Care Provided Minutes Spent on Discharge: 31 Hospital Course: This 50-year-old white female was seen in the emergency room at [facility] desiring services for alcohol detox. She had been admitted previously only several weeks ago for pancreatitis and alcohol withdrawal and had already gone through the program at that time. Her toxicology screen was positive for barbiturates and benzodiazepines, but alcohol level was 312. Patient was admitted to [facility], orders were entered using the alcohol detox order set and she was seen by addiction secondary social studies teacher. Patient had minimal withdrawal symptoms to hospitalization and there was no evidence of DTs. On 05/28/2025, patient was seen and examined: On examination he appeared in good health and spirits. Vital signs as documented. Skin warm and dry and without overt rashes. Neck without JVD, neck was supple, trachea midline, thyroid was normal. Lungs clear bilaterally, normal air movement was noted. Heart exam notable for regular rhythm, normal sounds and absence of murmurs, rubs or gallops. Abdomen unremarkable and without evidence of organomegaly, masses, or abdominal aortic enlargement. Bowel sounds are present, abdomen is not distended. Extremities nonedematous, no cyanosis was noted, no clubbing was noted. Neuro: Cranial nerves II through XII are grossly intact, no focal motor deficits were noted, sensation to light touch and pinprick intact, motor exam 5/5 throughout. Psych: Patient is alert and oriented x3, he does not appear anxious or depressed, he does not appear agitated. Patient was discharged home in stable condition on 05/28/2025 Weight / BMI Weight Weight: 56.7 kg Body Mass Index (BMI) 21.4 ABG / Lab / Microbiology Data 05/24/25 23:45 05/24/25 23:45 Laboratory: Laboratory Results - last 24 hr 05/27/25 16:01: POC Glucose 179 H 05/27/25 21:31: POC Glucose 217 H 05/28/25 06:30: POC Glucose 164 H 05/28/25 10:54: POC Glucose 259 H D/C Instructions Discharge Diet: 1800 Calorie Control Diet Weight Bearing Status: Full weight bearing DC O2, CPAP, BIPAP Needs Home O2 Discharge instructions: No Meaningful Use Info Meaningful Use Meaningful Use Diagnoses (Choose all that apply): None applicable Ischemic Stroke Statin Dosing Therapy Reference: STATIN DOSE THERAPY REFERENCE: * Patients > 75 years receive moderate or high dose statin therapy. * Patients 75 years or YOUNGER should receive HIGH intensity statin dose unless contraindicated. You will be required to document reason for non-treatment if statin daily dose does not meet guidelines. HIGH DOSE STATIN THERAPY DAILY Atorvastatin > than or = to 40 mg Rosuvastatin > than or = to 20 mg Amlodipine + Atorvastatin > than or = to 2.5/40 mg Ezetimibe + Simvastatin 10/80 mg Simvastatin 80mg Discharge Plan Admission Admit Date/Time: 05/25/25 00:33 Primary Reason for Your Visit: alcohol detox Attending Provider: Mao Becker Primary Care Provider: Abisai Haley Consulting Providers: Myra Null Instructions Additional Instructions / Restrictions: Follow up with outpatient detox (180) as directed Discharge Orders/Prescriptions Prescriptions: Continued metformin 500 mg tablet 500 ea [...] 10 mg Tablet 10 mg PO DAILY pantoprazole 40 mg tablet,delayed release (DR/EC) 40 mg PO BID citalopram 40 mg tablet 40 mg PO DAILY lisinopril 40 mg tablet 40 mg PO DAILY levocetirizine 5 mg tablet 5 mg PO DAILY metoprolol succinate 25 mg tablet extended release 24 hr 25 mg PO DAILY Jardiance 25 mg tablet 25 mg PO DAILY buspirone 5 mg tablet 5 mg PO TID PRN (Reason: anxiety) amlodipine 5 mg tablet 5 mg PO DAILY hydroxyzine HCl 10 mg tablet 10 mg PO TID PRN PRN (Reason: anxiety) budesonide-formoterol 160-4.5 mcg/actuation HFA aerosol inhaler 2 puff INHALATION BID glimepiride 4 mg tablet 4 mg PO DAILY Qty: 30 0RF atorvastatin 40 mg tablet 40 mg PO DAILY Qty: 30 6RF Referrals / Follow Up: Abisai Haley MD [Primary Care Provider] - Disposition Disposition (needs filled in before D/C Order can be placed): Home, Self Care Charges/Coding Visit Charges Inpatient E&M: 00731 Disch Hosp >30min 05/28/25 1316 <Electronically signed by Mao Becker DO> Cosigner Signature (if applicable): CC: Dr. Abisai Haley MD; Dr. Mao Becker DO~ Signed [facility] Work Phone: Discharge summary Author Canelo [facility] Note Date/Time July 20, 2025 2: 48pm [facility] Medical Records Department [address] [place] [id number] Discharge Summary 07/20/25 1442 MR#: [id number] Acct: [id number] Name: JOSEPH RINCON Rep #:[id number] : 1975 50 From: Canelo Myers MD PCP: Dr. Abisai Haley MD Status:ADM IN [id number] Providers Date of Admission: 07/17/25 Date of Discharge: 07/20/25 Primary Care Physician: Abisai Halye MD Reason For Visit: ACUTE PANCREATITIS, ALCOHOLIC INTOXICATION Diagnosis Discharge Diagnosis (1) Acute alcoholic pancreatitis: Status: Acute Code(s): K85.20 - Alcohol induced acute pancreatitis without necrosis or infection Plan Patient is a 50-year-old lady with history of alcohol dependence, prior episodesof pancreatitis who presented with abdominal pain. Patient was found to have elevated lipase level consistent with acute pancreatitis admitted to regular nursing floor for further 1. Acute on chronic pancreatitis ? Patient has been admitted to a monitored bed for symptom management including IV fluids, pain meds as well as antinausea medication.. Patient lipase level markedly elevated on admission greater than 3000 repeat levels ordered in a.m. ? 07/18/2025 patient continues to experience significant symptoms. Will continuewith current treatment regimen. Patient started on clear liquids ? 8/21/2025Patient seen admitted some improvement in her pain level. Plan is toadvance patient diet to full liquid. ? 07/20/2025; patient seen pain continues to improve patient will be advanced to regular diet and assess for discharge - - Tolerated oral diet, discharged on PPI 2. Alcohol withdrawal ? Patient was started on CIWA protocol placed on phenobarb taper. Patient was counseled on the need for cessation. She plans to follow-up with [facility]ices after discharge ? 07/18/2025; patient denies being tremulous however she thought she was hearing voices of his son ? 07/20/2025; consult was placed to [facility] counseling services 3. Hypokalemia ? Patient started on potassium replacement repeat labs ordered in a.m. for follow-up ? 07/18/2025; patient potassium up to 3.[address] patient on scheduled potassium 20 mg twice daily 4. Acute alcoholic hepatitis ? Following with serial LFTs in a.m. ? Patient transaminases have worsened we will continue with monitoring ? 07/19/2025; patient transaminases improving we will hold off consulting GI 5. Acute hypertensive urgency ? Patient blood pressure markedly elevated on admission her pain may be contributing to the elevated blood pressure did continue with home meds ordered hydralazine as needed for systolic blood pressure greater than 160 ? 07/18/2025; patient blood pressure control not optimal given her significant pain ? 07/19/2025; patient blood pressure has stabilized 6. Dyslipidemia ?Patient is on statin therapy, continued at home dose 7. COPD ? Currently not in exacerbation aerosol treatments as needed 8. Diabetes mellitus type II -patient's oral hypoglycemics held. Placed on long acting insulin, Accu-Cheks a.c. and at bedtime and covered with sliding scale insulin 9. GERD ? Patient is on Protonix 40 mg twice daily?continue home 10. Tobacco dependence ? Counseled on cessation, offered nicotine patch for tobacco cravings 11. Depression with anxiety ? Patient is on citalopram bupropion as well as buspirone held buspirone continue with the 12. Severe malnutrition. Related to: inadequate oral intake; As evidenced by: 10% unintentional weight loss x <1 month and PO meeting <50% of estimated nutrition needs x 1 month. Consult placed to dietitian 13. Anemia ? Secondary to chronic disorder monitoring H&H and transfuse if patient becomes symptomatic or hemoglobin falls below 7 14. Hypomagnesemia ? Corrected per protocol, repeat mag level ordered in a.m. to assess response totherapy 15. Thrombocytopenia ? Secondary to patient chronic alcohol use patient was on enoxaparin discontinued given the drop in the platelet count 16. DVT prophylaxis ? Discontinue enoxaparin given drop in platelet Time spent in the patient's overall evaluation,decision-making process, review of diagnostic data, adjustment of management, discussion with other providers, nursing nursing and ancillary staff involved in patient's care documentation, 40 minutes Medications at Discharge Home Medications metformin 500 mg tablet 500 ea PO BID DIABETES 10/31/22 aspirin 81 mg chewable tablet 81 mg PO DAILY@0800 #30 tabs 11/19/22 bupropion HCl 150 mg 24 hr tablet, extended release 150 mg PO DAILY 01/21/23 montelukast 10 mg tablet (Singulair) 10 mg PO DAILY 04/09/23 pantoprazole 40 mg tablet,delayed release 40 mg PO BID 05/04/23 cholecalciferol (vitamin D3) 50 mcg (2,000 unit) capsule 50 mcg PO DAILY 08/25/23 magnesium 250 mg tablet 250 mg PO DAILY 08/25/23 albuterol sulfate 90 mcg/actuation aerosol inhaler 2 puff inhalation Q6H PRN shortness of breath or wheezing #8.5 grams 04/27/24 empagliflozin 25 mg tablet (Jardiance) 25 mg PO DAILY 11/12/24 metoprolol succinate 25 mg tablet,extended release 24 hr 25 mg PO DAILY 11/12/24 amlodipine 5 mg tablet 5 mg PO DAILY 04/04/25 buspirone 5 mg tablet 5 mg PO TID PRN anxiety 04/04/25 hydroxyzine HCl 10 mg tablet 10 mg PO TID PRN PRN anxiety 04/04/25 levocetirizine 5 mg tablet 5 mg PO DAILY 04/11/25 lisinopril 40 mg tablet 40 mg PO DAILY 04/11/25 budesonide-formoterol HFA 160 mcg-4.5 mcg/actuation aerosol inhaler 2 puff inhalation BID SOB 04/26/25 glimepiride 4 mg tablet 4 mg PO DAILY #30 tabs 05/06/25 atorvastatin 40 mg tablet 40 mg PO QHS 07/17/25 fluoxetine 40 mg capsule 40 mg PO DAILY 07/17/25 ondansetron 4 mg disintegrating tablet 4 mg PO Q6H PRN nausea and vomiting #30 tabs 07/20/25 oxycodone 5 mg tablet 5 mg PO Q4H PRN PRN Pain Score 4-10 5 days #20 tabs 07/20/25 Physical Exam Narrative GENERAL: cooperative HEENT: Atraumatic; normocephalic EYES; Anicteric, Normal Conjunctiva NECK; supple, normal thyroid, RESPIRATORY: Diminished to auscultation CARDIOVASCULAR: Regular S1 S2, GI: soft, normoactive bowel sounds, : No Renal angle tenderness; EXTREMITIES: No edema, no clubbing, MUSCULOSKELETAL: no muscle wasting NEURO: Awake; no lateralizing signs. SKIN: No Rash PSYCH; Flat affect Weight / BMI Weight Weight: 64.1 kg Body Mass Index (BMI) 24.1 ABG / Lab / Microbiology Data 07/20/25 06:02 07/20/25 06:02 Laboratory: Laboratory Results - last 24 hr 07/19/25 15:56: POC Glucose 91 07/19/25 22:23: POC Glucose 121 H 07/20/25 06:02: WBC 4.3 L, RBC 2.84 L, Hgb 9.6 L, Hct 29.2 L, MCV 102.8 H, MCH 33.8 H, MCHC 32.9, RDW Std Deviation 57.6 H, RDW Coeff of Braxton 15.2 H, Plt Count 114 L, MPV 10.9, Immature Gran % (Auto) 0.200, Neut % (Auto) 66.7, Lymph % (Auto) 19.5, [place] % (Auto) 11.8 H, Eos % (Auto) 1.6, Baso % (Auto) 0.2, AbsoluteNeuts (auto) 2.8, Absolute Lymphs (auto) 0.83, Nucleated RBC % 0, Sodium 140, Potassium 3.6, Chloride 103, Carbon Dioxide 27.0, Anion Gap 10, BUN 4, Creatinine 0.40 L, Estim Creat Clear Calc 148.53, Est GFR (MDRD) Non-Af 122, BUN/Creatinine Ratio 10.1, Glucose 107 H, Calcium 7.6, Total Bilirubin 0.86, [id number] H, ALT 114 H, Alkaline Phosphatase 134 H, Total Protein 5.1 L, Albumin 3.0 L, Globulin 2.1 L, Albumin/Globulin Ratio 1.4 07/20/25 06:17: POC Glucose 111 H 07/20/25 11:33: POC Glucose 217 H D/C Instructions Discharge Activity: Return to Normal Activity Call your doctor if you observe: Fever of 101 or Higher, Shortness of breath, Fainting spells and Chest pain DC O2, CPAP, BIPAP Needs Home O2 Discharge instructions: No Meaningful Use Info Meaningful Use Meaningful Use Diagnoses (Choose all that apply): None applicable Discharge Plan Admission Admit Date/Time: 07/17/25 12:56 Attending Provider: Canelo Myers Primary Care Provider: Abisai Haley Discharge Orders/Prescriptions Prescriptions: New oxycodone 5 mg Tablet 5 mg PO Q4H PRN PRN (Reason: Pain Score 4-10) 5 Days Qty: 20 0RF ondansetron 4 mg tablet,disintegrating 4 mg PO Q6H PRN (Reason: nausea and vomiting) Qty: 30 0RF Continued metformin 500 mg [...] 10 mg Tablet 10 mg PO DAILY pantoprazole 40 mg tablet,delayed release (DR/EC) 40 mg PO BID lisinopril 40 mg tablet 40 mg PO DAILY levocetirizine 5 mg tablet 5 mg PO DAILY fluoxetine 40 mg capsule 40 mg PO DAILY atorvastatin 40 mg tablet 40 mg PO QHS metoprolol succinate 25 mg tablet extended release 24 hr 25 mg PO DAILY Jardiance 25 mg tablet 25 mg PO DAILY buspirone 5 mg tablet 5 mg PO TID PRN (Reason: anxiety) amlodipine 5 mg tablet 5 mg PO DAILY hydroxyzine HCl 10 mg tablet 10 mg PO TID PRN PRN (Reason: anxiety) budesonide-formoterol 160-4.5 mcg/actuation HFA aerosol inhaler 2 puff INHALATION BID glimepiride 4 mg tablet 4 mg PO DAILY Qty: 30 0RF Referrals / Follow Up: Abisai Haley MD [Primary Care Provider] - Within 2 Weeks Disposition Disposition (needs filled in before D/C Order can be placed): Home, Self Care Charges/Coding Visit Charges Inpatient E&M: 42061 Disch Hosp >30min 07/20/25 1448 <Electronically signed by Canelo Myers MD> Cosigner Signature (if applicable): CC: Dr. Abisai Haley MD; Dr. Canelo Myers MD~ Signed [facility] Work Phone: evaluation noteNo assessment information available [facility] Work Phone: evaluation note* Diagnosis Hip pain, acute, left- [facility] Diagnosis Onset Date Resolution Status Bilateral acute otitis media acute [facility] Work Phone: evaluation note* Diagnosis Onset Date Resolution Status Acute lumbar myofascial strain acute Strain of left hip acute Acute bronchitis acute ACS (acute coronary syndrome) acute Hypertensive urgency acute Hypertriglyceridemia acute Non-ST elevated myocardial infarction acute Hypertension chronic Type 2 diabetes mellitus [facility] Work Phone: evaluation note* Diagnosis Onset Date Resolution Status Acute lumbar myofascial strain acute Strain of left hip acute Acute bronchitis acute ACS (acute coronary syndrome) acute Hypertensive urgency acute Hypertriglyceridemia acute Non-ST elevated myocardial infarction acute HTN (hypertension) chronic Type 2 diabetes mellitus [facility] Work Phone: Evaluation note* Diagnosis Onset Date Resolution Status Acute bronchitis acute [facility] Work Phone: Evaluation note* Diagnosis Onset Date Resolution Status Acute bronchitis acute High anion gap metabolic acidosis acute Hypotension acute Lactic acidosis acute Vertigo acute Type 2 diabetes mellitus [facility] Work Phone: Evaluation note* Diagnosis Onset Date Resolution Status Acute bronchitis acute High anion gap metabolic acidosis resolved Hypotension resolved Lactic acidosis resolved Vertigo resolved [facility] Work Phone: Evaluation note* Diagnosis Onset Date Resolution Status Acute bronchitis acute High anion gap metabolic acidosis resolved Hypotension resolved Lactic acidosis resolved Vertigo resolved Hypertriglyceridemia acute Palpitations acute Syncope and collapse acute HTN (hypertension) chronic Tobacco use disorder chronic [facility] Work Phone: Evaluation note* Diagnosis Onset Date Resolution Status High anion gap metabolic acidosis resolved Hypotension resolved Lactic acidosis resolved Vertigo resolved Hypertriglyceridemia acute Palpitations acute Syncope and collapse acute HTN (hypertension) chronic Tobacco use disorder chronic Acute sinusitis acute [facility] Work Phone: Evaluation note* Diagnosis Onset Date Resolution Status Hypertriglyceridemia acute Palpitations acute Syncope and collapse acute HTN (hypertension) chronic Tobacco use disorder chronic Acute sinusitis acute [facility] Work Phone: Evaluation note* Diagnosis Onset Date Resolution Status Hypertriglyceridemia acute Palpitations acute Syncope and collapse acute HTN (hypertension) chronic Tobacco use disorder chronic Acute sinusitis acute Hypertriglyceridemia acute Palpitations acute HTN (hypertension) chronic Tobacco use disorder chronic [facility] Work Phone: Evaluation note* Diagnosis Onset Date Resolution Status Acute sinusitis acute Hypertriglyceridemia acute Palpitations acute HTN (hypertension) chronic Tobacco use disorder chronic Contact with or exposure to other viral diseases acute URI (upper respiratory infection) acute [facility] Work Phone: Evaluation note* Diagnosis Onset Date Resolution Status Plantar fasciitis of left foot acute Strain of left foot acute [facility] Work Phone: Evaluation note* Diagnosis Sinus congestion- Primary Other diseases of nasal cavity and sinuses Wheezing Nausea Nausea alone [facility] Diagnosis Insomnia- Primary Insomnia, unspecified MOUNIKA [...] pain, acute, left [facility] Author Myra Null [facility] Note Date/Time May 25, 2025 1:54 am [facility] Medical Records Department [address] [place] [address] H&P Exam - Hospitalist 05/25/25 0037 MR#: [id number] Acct: [id number] Name: JOSEPH RINCON Rep #:[id number] : 1975 50 From: Myra Null MD PCP: Dr. Abisai Haley MD Status:REG ER Location: ED HPI - General General Date of Admission: 05/25/25 Date of Service: 05/25/25 Chief Complaint: EtOH detoxification request, EtOH withdrawal. HPI Narrative The patient is a 50 y/o F w/ PMHx: MOUNIKA on CPAP, COPD, Tobacco use, Chronic pancreatitis, Alcohol withdrawal seizures history per chart, HTN, HLD, Anxiety and Depression, GERD, Diabetes mellitus type II, EtOH abuse (>1/5 vodka daily) who presents to the [facility] ED on 05/25/25 with history of requesting alcohol detoxification with last alcohol intake just prior to ED arrival appearing to still be intoxicated with no overt evident withdrawal symptoms although patient in the ED does several times twitch her arms and seemingly look unresponsive butis easily arousable and will sit up quickly and talk but is requesting as noted alcohol withdrawal treatment. She does report that recently over the last several weeks she has increased her alcohol intake. Workup in the ED included T98, heart 123, BP 137/94, respiratory rate 14, 93% on room air, most recent repeat vitals T98.3, heart rate 99, BP 141/63, respiratory rate 14, 95% on room air, CBC with WC 8.7, hemoglobin 13.2, platelet 187 without marked shift, CMP with come dioxide 20.9, anion gap 21, BUN/creatinine 8/0.72, GFR 104, AST 45, alk phos 115, negative serum testing, urinalysis not marked appearing. In the ED patient ministered 1 normal saline, Ativan 1 mg IV x 1, Zofran 4 mg IV x 1. [facility] Pancreatitis Hypokalemia Nausea & vomiting Intractable abdominal pain Strain of left foot Plantar fasciitis of [...] mg PO DAILY Unknown History extended release montelukast 10 mg tablet 10 mg PO DAILY 04/09/23 Unkn own History (Singulair) pantoprazole 40 mg tablet,delayed 40 mg PO BID 3 Unknown History release cholecalciferol (vitamin D3) 50 50 mcg PO DAILY Unknown History mcg (2,000 unit) capsule magnesium 250 mg tablet 250 mg PO DAILY 08/25/23 Unk nown History albuterol sulfate 90 mcg/actuation 2 puff inhalation [...] 5 mg tablet 5 mg PO TID PRN anxiety 06/22 Unknown History hydroxyzine HCl 10 mg tablet [...] 04/26/25 Unknown History mcg-4.5 mcg/actuation aerosol inhaler glimepiride 4 mg tablet 4 mg PO DAILY #30 tabs 05/06 Unknown Rx Allergy/AdvReac Type Severity Reaction Status Date / Time No Known Allergies Allergy Verified 05/24/25 23:11 Family History Grandfather CVA (cerebral vascular accident) Diabetes Mother Cancer Father Hypertension Grandmother Hypertension Diabetes Surgical History History of cholecystectomy H/O tooth extraction plantar fasciitis release Social History (Updated 05/25/25 @ 01:[address] Myra Null MD) household members: spouse and children housing: house pets and animals: Yes Smoking Status: Light Smoker (<10/day) alcohol intake: current alcohol intake frequency: 3 or more drinks per day Alcohol type: hard liquor details: At least 1/5 vodka daily, recently increased EtOH intake. substance use type: does not use ROS ROS Narrative Admission Review of Systems: CONSTITUTIONAL: No weight loss, fever, chills, weakness or fatigue. HEENT: Eyes: No visual loss, blurred vision, double vision or yellow sclerae. Ears, Nose, Throat: No hearing loss, sneezing, congestion, runny nose or sore throat. SKIN: No rash or itching, lesions, wounds. CARDIOVASCULAR: No chest pain, chest pressure or chest discomfort, palpitations,edema, orthopnea, syncopal events. RESPIRATORY: No shortness of breath, cough or sputum, wheezing, hemoptysis. GASTROINTESTINAL: No anorexia, nausea, vomiting or diarrhea, abdominal pain, melena, BRBPR. GENITOURINARY: No dysuria, frequency, urgency or retention. NEUROLOGICAL: + Intoxicated. Does have a history of previous alcohol withdrawalseizures. In the ED does have some atypical extremity movements but this is purposeful and appears patient driven/pseudo. No headache, dizziness, syncope, paralysis, ataxia, numbness or tingling in the extremities, focal weakness, change in bowel or bladder control. MUSCULOSKELETAL: + muscle, back pain, joint pain or stiffness. HEMATOLOGIC: No anemia, bleeding or bruising. LYMPHATICS: No enlarged nodes. No history of splenectomy. PSYCHIATRIC:+ History of anxiety and depression. ENDOCRINOLOGIC: No reports of sweating, cold or heat intolerance. No polyuria orpolydipsia. ALLERGIES: + History of allergic rhinitis. Vital Signs Vital Signs Vital Signs: 05/24/25 23:09 Temperature 98 F Temperature Source Temporal Pulse Rate 123 H Respiratory Rate 14 Blood Pressure 137/94 H Blood Pressure Mean 108 Pulse Ox 93 Oxygen Delivery Method Room Air Weight Weight: 126 lb 8.725 oz Body Mass Index (BMI) 21.7 Physical Exam Narrative Physical Examination: General: Awake, alert, oriented x 3 and cooperative, seated upright in ED bed, intermittently appearing more lethargic but very quick to recover and began discussions again or to awaken when she wants to try mitten to the conversation. Skin: Normal color, normal turgor, no icterus, no cyanosis except occasional stage ecchymoses, abrasion. HEENT: AT/NC, EOMI, PERRLA, mildly dry MM, no carotid bruits or JVD noted. Lungs: CTA bilaterally, moderate effort, mild decrease BL bases, no rales, ronchi or wheezing. Heart: Improved, regular rate and rhythm; no gallop, rub audible. Abdomen: Soft, NTTP, ND, normal BS, + HM. Extremities: No cyanosis, clubbing, or edema. Neurological: Patient awake, alert, oriented as noted, cognitive function suspect likely near baseline intact although she does have intermittent periods where she appears to be nearly play acting at being lethargic quickly awakening without issue and when she wants to enter jacked in the conversation, pupils equally reactive to light and accommodation, cranial nerves grossly normal, moving all 4 extremities, no focal deficits, strength preserved, no evidence of any tremulousness, currently appears intoxicated. Psychiatric: Affect appears intermittently calm and normal interaction, varying with attempts to appear to be lethargic, no acute evidence of depressive or anxiety feelings but does have underlying history. Results Lab / Micro Data 05/24/25 23:45 05/24/25 23:45 Assessment & Plan Assessment/Plan (1) Admitted to alcohol detoxification center: PLAN: Plan The patient is a 50 y/o F w/ PMHx: MOUNIKA on CPAP, COPD, Tobacco use, Chronic pancreatitis, Alcohol withdrawal seizures history per chart, HTN, HLD, Anxiety and Depression, GERD, Diabetes mellitus type II, EtOH abuse (>1/5 vodka daily) who presents to the [facility] ED on 05/25/25 with history of requesting alcohol detoxification with last alcohol intake just prior to ED arrival appearing to still be intoxicated. #1. Acute EtOH Withdrawal: Will admit to [facility], routine labs obtained in the ED upon presentation and not marked appearing. Given interest in sobriety, will initiate and continue on protocol with taper course of Phenobarbital, as needed gabapentin, Catapres, Bentyl, Vistaril, IV fluids, IV antiemetics, Tylenol as needed for pain. Will consult Case management for assistance for transition to next level of rehabilitation care. Mag, phos pending. Maintain on CIWA protocol concurrently. #2. Anxiety and depression: Will continue patient home citalopram, buspirone, bupropion home regimen, would benefit greatly from ongoing follow-up and counseling outpatient given especially alcohol abuse history. #3. Diabetes mellitus type II: Hold oral home regimen, ADA diet, accu checks w/ISS. #4. Chronic COPD with allergic rhinitis: Will temporarily hold home inhalers inthe interim transition to ATC budesonide therapy, PRN albuterol, HOB, IS parameters, continue home montelukast regimen as well as levocetirizine. #5. Hypertension: Continue home regimen including metoprolol, lisinopril, PRN hydralazine. #6. Hyperlipidemia: Will continue patient on statin therapy. #7. Tobacco Abuse: Encouraged cessation, inpatient consultation per RT, NR if desired. #8. GERD: Will continue patient on PPI. #9. MOUNIKA: CPAP nightly. #10. DVT prophylaxis: Low risk for type of admission presentation. Charges/Coding Visit Charges Inpatient E&M: 74619 Init Hosp L3 05/25/25 0154 <Electronically signed by Myra Null MD> Cosigner Signature (if applicable): CC: Dr. Myra Null MD; Dr. Abisai Haley MD~ Signed [facility] Work Phone: Hospital Discharge instructions Additional Instructions Please follow-up with your PCP and pain management. Return for worsening of symptoms.[facility] Work Phone: Reason for referral (narrative)* Diagnostic Procedure Only (Urgent) - Pending Review Specialty Diagnoses / Procedures Referred By Contac t Referred To Contact XR IMAGING Diagnoses Hip pain, acute, left Procedures XR HIP GENERAL 3V PELV/AP/LAT LEFT RADEX HIP UNILATERAL WITH PELVIS 2-3 VIEWS Samantha Deleon APRN.[employer] [address] [place] [address] Xr Imaging Referral ID Status Reason Start Date Expiration Date Visits Requested Visits Authorized [id number] Pending Review Auto-Generat ed Referral 07/21/2022 08/20/2023 1 1 [facility] for referral (narrative)* Diagnostic Procedure Only (Urgent) - Closed Specialty Diagnoses / Procedures Referred By Contac t Referred To Contact XR IMAGING Diagnoses Hip pain, acute, left Procedures XR HIP GENERAL 3V PELV/AP/LAT LEFT RADEX HIP UNILATERAL WITH PELVIS 2-3 VIEWS Samantha Deleon APRN.[employer] [employer] [address] [place] [address] [place] [address] Referral ID Status Reason Start Date Expiration Date V isits Requested Visits Authorized [id number] Closed Auto-Generate d Referral 07/21/2022 08/20/2023 1 [facility]No reason for referral information availableWMercy Health St[facility] Work Phone: Reason for visit Narrative* Diagnostic Procedure Only (Urgent) - Closed Specialty Diagnoses / Procedures Referred By Contac t Referred To Contact XR IMAGING Diagnoses Hip pain, acute, left Procedures XR HIP GENERAL 3V PELV/AP/LAT LEFT RADEX HIP UNILATERAL WITH PELVIS 2-3 VIEWS Samantha Deleon, SENIOR INFORMATICA ETL DEVELOPER.[employer] [address] [place] [address] [place] [address] Referral ID Status Reason Start Date Expiration Date V isits Requested Visits Authorized [id number] Closed Auto-Generate d Referral 07/21/2022 08/20/2023 1 1 [facility] Summary Purpose Family History No Family History Records Found Relationship Condition Age at Onset Recorded Date/T thien grandfather Cerebrovascular accident (CVA) Unknown Diabetes mellitus Unknown mother Malignant neoplasm Unknown father Hypertension Unknown grandmother Hypertension Unknown Advance Directives No Advanced Directives Records Found Advance Directive Response Recorded Date/ Time Advance Directives No February 23 021 8:55am Living Will No February 22, 2022 12:30pm Power of Refractory Bricklayer No February 22 12:30pm Advance Directive Response Recorded Date/ Time Advance Directives No February 23 021 8:55am Living Will No September 05 9:14pm Power of Refractory Bricklayer No September 05 9:14pm Advance Directive Response Recorded Date/ Time Advance Directives No February 23 7:55am Living Will No November 18 1:54pm Power of Refractory Bricklayer No November 18, 2022 1:54pm Advance Directive Response Recorded Date/ Time Advance Directives No February 23 021 7:55am Living Will No January 21 12:06pm Power of Refractory Bricklayer No January 21, 2023 12:06pm Advance Directive Response Recorded Date/ Time Advance Directives No February 23 021 8:55am Living Will No March 22, 2023 6:38pm Power of Refractory Bricklayer No March 22 6:38pm Advance Directive Response Recorded Date/ Time Advance Directives No February 23 021 8:55am Living Will No April 09, 2023 1 0:50pm Power of Refractory Bricklayer No April 09, 2023 10:50pm Advance Directive Response Recorded Date/ Time Advance Directives No February 23 8:55am Living Will No April 10, 2023 3 :53am Power of Refractory Bricklayer No April 10, 2023 3:53am Advance Directive Response Recorded Date/ Time Advance Directives No February 23 8:55am Living Will No May 04, 2023 9 :16pm Power of Refractory Bricklayer No May 04, 2023 9:16pm Advance Directive Response Recorded Date/ Time Advance Directives No February 23 8:55am Living Will No May 24, 2023 9:36pm Power of Refractory Bricklayer No May 24 9:36pm Advance Directive Response Recorded Date/ Time Advance Directives No February 23 8:55am Living Will No July 29 2:27pm Power of Refractory Bricklayer No July 29 2:27pm Advance Directive Response Recorded Date/ Time Advance Directives No February 23 8:55am Living Will No August 23, 2023 12:07pm Power of Refractory Bricklayer No July 12:07pm Advance Directive Response Recorded Date/ Time Advance Directives No February 23 7:55am Living Will No October 10 023 4:19pm Power of Refractory Bricklayer No October 10, 2023 4:19pm Advance Directive Response Recorded Date/ Time Advance Directives No February 23 8:55am Living Will No January 24 5:38pm Power of Refractory Bricklayer No January 24, 2024 5:38pm Advance Directive Response Recorded Date/ Time Do you have a Healthcare Power of Refractory Bricklayer? No April 04, 2025 11:50am Advance Directives No July 2:01pm Advance Directive Response Recorded Date/ Time Do you have a Healthcare Power of Refractory Bricklayer? No April 11, 2025 10:12pm Do you have a Healthcare Power of Refractory Bricklayer? No April 04, 2025 11:50am Advance Directives No July 2:01pm Advance Directive Response Recorded Date/ Time Do you have a Healthcare Power of Refractory Bricklayer? No April 11, 2025 10:12pm Do you have a Healthcare Power of Refractory Bricklayer? No April 04, 2025 11:50am Do you have a Healthcare Power of Refractory Bricklayer? No April 26, 2025 1:50pm Advance Directives No July 2:01pm Advance Directive Response Recorded Date/ Time Do you have a Healthcare Power of Refractory Bricklayer? No April 11, 2025 10:12pm Do you have a Healthcare Power of Refractory Bricklayer? No April 04, 2025 11:50am Do you have a Healthcare Power of Refractory Bricklayer? No April 26, 2025 6:15pm Advance Directives No July 2:01pm Advance Directive Response Recorded Date/ Time Do you have a Healthcare Power of Refractory Bricklayer? No April 11, 2025 10:12pm Do you have a Healthcare Power of Refractory Bricklayer? No April 04, 2025 11:50am Do you have a Healthcare Power of Refractory Bricklayer? No April 26, 2025 6:15pm Do you have a Healthcare Power of Refractory Bricklayer? No May 24, 2025 11:48pm Advance Directives No July 2:01pm Advance Directive Response Recorded Date/ Time Do you have a Healthcare Power of Refractory Bricklayer? No April 11, 2025 10:12pm Do you have a Healthcare Power of Refractory Bricklayer? No April 04, 2025 11:50am Do you have a Healthcare Power of Refractory Bricklayer? No April 26, 2025 6:15pm Do you have a Healthcare Power of Refractory Bricklayer? No May 25, 2025 2:53am Advance Directives No July 2:01pm Advance Directive Response Recorded Date/ Time Do you have a Healthcare Power of Refractory Bricklayer? No April 11, 2025 10:12pm Do you have a Healthcare Power of Refractory Bricklayer? No July 17, 2025 10:29am Do you have a Healthcare Power of Refractory Bricklayer? No April 04, 2025 11:50am Do you have a Healthcare Power of Refractory Bricklayer? No April 26, 2025 6:15pm Do you have a Healthcare Power of Refractory Bricklayer? No May 25, 2025 2:53am Advance Directives No July 2:01pm Advance Directive Response Recorded Date/ Time Do you have a Healthcare Power of Refractory Bricklayer? No April 11, 2025 10:12pm Do you have a Healthcare Power of Refractory Bricklayer? No July 17, 2025 1:34pm Do you have a Healthcare Power of Refractory Bricklayer? No April 04, 2025 11:50am Do you have a Healthcare Power of Refractory Bricklayer? No April 26, 2025 6:15pm Do you have a Healthcare Power of Refractory Bricklayer? No May 25, 2025 2:53am Advance Directives No July 2:01pm Chief Complaint [...] ACUTE PANCREATITIS May 04, 2025 7:42a m Chief Complaint Admit Date PALPITATIONS April [...] ACUTE PANCREATITIS May 04, 2025 7:42a m ACUTE PANCREATITIS May 05, 2025 5:25p m ACUTE PANCREATITIS May 06, 2025 1:22p m ETOH DETOXIFICATION, WITHDRAWL April 12:33am ALCOHOL May 25, 2025 12:3 7am Reason for Visit Admit Date Hypokalemia April 26, 2025 5:13p m Intractable abdominal pain April 26 5:13pm Nausea & vomiting April 26, 2025 5:13p m Pancreatitis April 26, 2025 5:13p m Admitted to alcohol detoxification [facility] May 25, 2025 12:33am Chief Complaint Admit Date PALPITATIONS April 04, [...] ACUTE PANCREATITIS May 04, 2025 7:42a m ACUTE PANCREATITIS May 05, 2025 5:25p m ACUTE PANCREATITIS May 06, 2025 1:22p m ETOH DETOXIFICATION, WITHDRAWL April 12:33am ALCOHOL May 25, 2025 12:3 7am ETOH DETOXIFICATION, WITHDRAWL April 1:35pm ETOH DETOXIFICATION, WITHDRAWL April 3:31pm ETOH DETOXIFICATION, WITHDRAWL April 1:13pm Chief Complaint Admit Date PALPITATIONS April 04, [...] ACUTE PANCREATITIS May 04, 2025 7:42a m ACUTE PANCREATITIS May 05, 2025 5:25p m ACUTE PANCREATITIS May 06, 2025 1:22p m ETOH DETOXIFICATION, WITHDRAWL April 12:33am ALCOHOL May 25, 2025 12:3 7am ETOH DETOXIFICATION, WITHDRAWL April 1:35pm ETOH DETOXIFICATION, WITHDRAWL April 3:31pm ETOH DETOXIFICATION, WITHDRAWL April 1:13pm ACUTE PANCREATITIS, ALCOHOLIC INTOXICATI ON July 17, 2025 12:56pm Reason for Visit Admit Date Hypokalemia April 26, 2025 5:13p m Intractable abdominal pain April 26 5:13pm Nausea & vomiting April 26, 2025 5:13p m Pancreatitis April 26, 2025 5:13p m Admitted to alcohol detox[facility] May 25, 2025 12:33am Abdominal pain July 17, 2025 12 :56pm Acute alcoholic pancreatitis June 12:56pm History of diabetes mellitus June 12:56pm Chief Complaint Admit Date PALPITATIONS April 04, [...] ACUTE PANCREATITIS May 04, 2025 7:42a m ACUTE PANCREATITIS May 05, 2025 5:25p m ACUTE PANCREATITIS May 06, 2025 1:22p m ETOH DETOXIFICATION, WITHDRAWL April 12:33am ALCOHOL May 25, 2025 12:3 7am ETOH DETOXIFICATION, WITHDRAWL April 1:35pm ETOH DETOXIFICATION, WITHDRAWL April 3:31pm ETOH DETOXIFICATION, WITHDRAWL April 1:13pm ACUTE PANCREATITIS, ALCOHOLIC INTOXICATI ON July 17, 2025 12:56pm ACUTE PANCREATITIS, ALCOHOLIC INTOXICATI ON July 17, 2025 1:04pm ACUTE PANCREATITIS, ALCOHOLIC INTOXICATI ON July 18, 2025 7:45am ACUTE PANCREATITIS, ALCOHOLIC INTOXICATI ON July 19, 2025 9:38am ACUTE PANCREATITIS, ALCOHOLIC INTOXICATI ON July 20, 2025 7:31am Additional Source Comments <item> Privacy Markings (unrecogniz ed section and content) Section Author: Yenifer Bowman PROHIBITION ON REDISCLOSURE OF CONFIDENTIAL INFORMATION This notice accompanies a disclosure of information concerning a client made to you with the consent of such client. INFORMATION SOURCE (unrecogn ized section and content) DATE CREATED AUTHOR 06/16/2021 [facility] DATE CREATED AUTHOR AUTHOR'S ORGANIZ ATION 04/24/2024 [facility] DATE CREATED AUTHOR AUTHOR'S ORGANIZ ATION 07/27/2025 [facility] Goals (unrecognized section and content) Goals [...] or prosecute any alcohol or drug abuse patient.[facility] the event this information is protected by the Federal Confidentiality of Alcohol and Drug Abuse Patient Records regulations: The Federal rules restrict any use of the information to criminally investigate or prosecute any alcohol or drug abuse patient.[facility] Hospital[facility] the event this information is protected by the Federal Confidentiality of Alcohol and Drug Abuse Patient Records regulations: The Federal rules restrict any use of the information to criminally investigate or prosecute any alcohol or drug abuse patient.[facility] Reason for Visit (unrecogniz ed section and content) Reason Comments left hip pain X 3 days-cannot reca ll an injury Reason Comments Sinus Problem Nasal congestion, dr garland slight sore throat, nausea, cough, wheezing x 1 day Care Teams (unrecognized sec tion and content) Assembler Arranger Relationship Specialty Start Date End Date Ihsan Aguilar DO PCP - General Family Practice 10/22/20 Team Status: Active Member Role Status Dates Dr. Abbe Clark MD Family Provider Active Milana Garcia DO Primary Care Provider Active Team Status: Inactive Member Role Status Dates Dr. Calvin Waldrop MD Primary Care Provider, Referring Provider Active Daniel SMITH PA Attending Provider Active Team Status: Inactive Member Role Status Dates Dr. Calvin aWldrop MD Primary Care Provider, Referring Provider Active [...] Care Provider Active Dr. David Jacobs , Attending Provider, Emergency P ty Active Team [...] , DO Primary Care Provider Active Dr. John Dyer , DO Emergency Provider Active Team Status: Inactive Member Role Status Dates Milana Garcia , DO Primary Care Provider, Referring Provider Active Jim Manriquez ACCOUNTANT MANAGER, ACCOUNTANT MANAGER-C Attending Provider Active Team Status: Inactive Member Role Status Giovanna Garcia , DO Primary Care Provider Active Dr. John Dyer , DO Attending Provider, Emergency Provider Active Team Status: Inactive Member Role Status Giovanna Garcia , DO Primary Care Provider, Attending Provider Active Team Status: Inactive Member Role Status Giovanna Garcia , DO Primary Care Provider Active Dr. Caprice Jerry MD Emergency Provider Active Team Status: Inactive Member Role Status Giovanna Garcia , DO Primary Care Provider Active Dr. Caprice Jerry MD Attending Provider, Emergency Provider Active Team Status: Active Member Role Status Dates Milana Garcia , DO Primary Care Provider Active Jim Manriquez ACCOUNTANT MANAGER, ACCOUNTANT MANAGER-C Attending Provider, Referring P roevert Active Team Status: Inactive Member Role Status Giovanna Garcia , DO Primary Care Provi elena, Attending Provider, Referring Provider Active Team Status: Inactive Member Role Status Giovanna Garcia , DO Primary Care Provider Active Rober Concepcion MD Emergency Provider Active Team Status: Inactive Member Role Status Dates Milana Garcia , DO Primary Care Provider Active Rober Concepcion MD Attending Provider, Emergency Provid er Active Team Status: Inactive Member Role Status Giovanna Garcia DO Primary Care Provider Active Dr. Julio Wesley MD Attending Provider, Referring Provider Active Jim Manriquez ACCOUNTANT MANAGER, ACCOUNTANT MANAGER-C Other Provider Active Team Status: Inactive Member Role Status Giovanna Garcia DO Primary Care Provider, Referring Provider Active Daniel Mendoza PA, PA Attending Provider Active Team Status: Inactive Member Role Status Giovanna Garcia DO Primary Care Provider Active Dr. Julio Wesley MD Attending Provider, Referring Provider Active Team Status: Inactive Member Role Status Giovanna Garcia DO Primary Care Provider Active Dr. Jose Taylor MD Attending Provider Active Assembler Arranger Relationship Specialty Start Date End Date LaruenIhsan PCP - General Family Medicine 10/22/20 Assembler Arranger Relationship Specialty Start Date End Date Lauren, Ihsan YarbroughDO PCP - General Family Medicine [...] Provider Active Star t: May 04, 2025 Team Status: Active Member Role Status [...] Provider Active Star t: May 04, 2025 Team Status: Active Member Role Status Giovanna Haley MD Primary Care Provider Active St art: May 05, 2025 Dr. Humphrey Garcia DO Emergency Provider Active Start: May 05, 2025 Dr. Julius Moncada MD Admit Provider Active St art: May 05, 2025 Dr. Julius Moncada MD Other Provider Active St art: May 05, 2025 Dr. Mao Becker DO Attending Provider Active Start: May 05, 2025 Dr. Mao Becker DO Other Provider Active S tart: May 05, 2025 Dr. Canelo Myers MD Other Provider Active Star t: May 05, 2025 Team Status: Active Member Role Status Giovanna Haley MD Primary Care Provider Active St art: May 06, 2025 Dr. Humphrey Garcia DO Emergency Provider Active Start: May 06, 2025 Dr. Julius Moncada MD Admit Provider Active St art: May 06, 2025 Dr. Julius Moncada MD Other Provider Active St art: May 06, 2025 Dr. Mao Becker DO Attending Provider Active Start: May 06, 2025 Dr. Mao Becker , Other Provider Active S tart: May 06, 2025 Dr. Canelo Myers MD Other Provider Active Star t: May 06, 2025 Team Status: Active Member Role Status Giovanna Haley MD Primary Care Provider Active St art: May 25, 2025 Dr. Andrew Maurice DO Emergency Provider Activ e Start: May 25, 2025 Dr. Myra Null MD Admit Provider Active St art: May 25, 2025 Dr. Myra Null MD Attending Provider Active Start: May 25, 2025 Team Status: Active Member Role Status Giovanna Haley MD Primary Care Provider Active St art: May 25, 2025 Dr. Andrew Maurice DO Emergency Provider Activ e Start: May 25, 2025 Dr. Myra Null MD Attending Provider Active Start: May 25, 2025 Team Status: Active Member Role/Relationship Status Giovanna Haley MD Primary Care Provider Active Team Status: Inactive Member Role/Relationship Status Giovanna Haley MD Primary Care Provider Active St art: April 04, 2025 End: April 04, 2025 Dr. Imani Knight DO Attending Provider Active Start: April 04, 2025 End: April 04, 2025 Dr. Imani Knight DO Emergency Provider Active Start: April 04, 2025 End: April 04, 2025 Team Status: Inactive Member Role/Relationship Status Giovanna Haley MD Primary Care Provider Active St art: April 11, 2025 End: April 12, 2025 Dr. Francisco Colon MD Attending Provider Active S tart: April 11, 2025 End: April 12, 2025 Dr. Francisco Colon MD Emergency Provider Active S tart: April 11, 2025 End: April 12, 2025 Team Status: Inactive Member Role/Relationship Status Giovanna Haley MD Primary Care Provider [...] May 06, 2025 Team Status: Active Member Role/Relationship Status Giovanna Haley MD Primary Care Provider Active St art: April 26, 2025 Dr. Humphrey Garcia DO Emergency Provider Active Start: April 26, 2025 Dr. Julius Moncada MD Admit Provider Active St art: April 26, 2025 Dr. Julius Moncada MD Attending Provider Active Start: April 26, 2025 Dr. Julius Moncada MD Other Provider Active St art: April 26, 2025 Team Status: Active Member Role/Relationship Status Giovanna Haley MD Primary Care Provider [...] April 27, 2025 Team Status: Active Member Role/Relationship Status Giovanna Haley MD Primary Care Provider [...] April 28, 2025 Team Status: Active Member Role/Relationship Status Giovanna Haley MD Primary Care Provider [...] April 29, 2025 Team Status: Active Member Role/Relationship Status Dates Abisai Haley MD Primary Care [...] April 30, 2025 Team Status: Active Member Role/Relationship Status Dates Abisai Haley MD Primary Care [...] May 01, 2025 Team Status: Active Member Role/Relationship Status Dates Abisai Haley MD Primary Care [...] May 02, 2025 Team Status: Active Member Role/Relationship Status Dates Abisai Haley MD Primary Care [...] May 03, 2025 Team Status: Active Member Role/Relationship Status Dates Abisai Haley MD Primary Care [...] Provider Active Star t: May 04, 2025 Team Status: Active Member Role/Relationship Status Dates Abisai Haley MD Primary Care Provider Active St art: May 05, 2025 Dr. Humphrey Garcia DO Emergency Provider Active Start: May 05, 2025 Dr. Julius Moncada MD Admit Provider Active St art: May 05, 2025 Dr. Julius Moncada MD Other Provider Active St art: May 05, 2025 Dr. Mao Becker DO Attending Provider Active Start: May 05, 2025 Dr. Mao Becker DO Other Provider Active S tart: May 05, 2025 Dr. Canelo Myers MD Other Provider Active Star t: May 05, 2025 Team Status: Active Member Role/Relationship Status Dates Abisai Haley MD Primary Care Provider Active St art: May 06, 2025 Dr. Humphrey Garcia DO Emergency Provider Active Start: May 06, 2025 Dr. Julius Moncada MD Admit Provider Active St art: May 06, 2025 Dr. Julius Moncada MD Other Provider Active St art: May 06, 2025 Dr. Mao Becker DO Attending Provider Active Start: May 06, 2025 Dr. Mao Becker DO Other Provider Active S tart: May 06, 2025 Dr. Canelo Myers MD Other Provider Active Star t: May 06, 2025 Team Status: Inactive Member Role/Relationship Status Dates Abisai Haley MD Primary Care Provider Active St art: May 25, 2025 End: May 28, 2025 Dr. Andrew Maurice DO Emergency Provider Activ e Start: May 25, 2025 End: May 28, 2025 Dr. Myra Null MD Admit Provider Active St art: May 25, 2025 End: May 28, 2025 Dr. Myra Null MD Other Provider Active St art: May 25, 2025 End: May 28, 2025 Dr. Mao Becker DO Attending Provider Active Start: May 25, 2025 End: May 28, 2025 Team Status: Active Member Role/Relationship Status Dates Abisai Haley MD Primary Care Provider Active St art: May 25, 2025 Dr. Andrew Maurice DO Emergency Provider Activ e Start: May 25, 2025 Dr. Myra Null MD Attending Provider Active Start: May 25, 2025 Team Status: Active Member Role/Relationship Status Dates Abisai Haley MD Primary Care Provider Active St art: May 26, 2025 Dr. Andrew Maurice DO Emergency Provider Activ e Start: May 26, 2025 Dr. Myra Null MD Admit Provider Active St art: May 26, 2025 Dr. Myra Null MD Other Provider Active St art: May 26, 2025 Dr. Mao Becker DO Attending Provider Active Start: May 26, 2025 Dr. Mao Becker DO Other Provider Active S tart: May 26, 2025 Team Status: Active Member Role/Relationship Status Dates Abisai Haley MD Primary Care Provider Active St art: May 27, 2025 Dr. Andrew Maurice DO Emergency Provider Activ e Start: May 27, 2025 Dr. Myra Null MD Admit Provider Active St art: May 27, 2025 Dr. Myra Null MD Other Provider Active St art: May 27, 2025 Dr. Mao Becker DO Attending Provider Active Start: May 27, 2025 Dr. Mao Becker DO Other Provider Active S tart: May 27, 2025 Team Status: Active Member Role/Relationship Status Dates Abisai Haley MD Primary Care Provider Active St art: May 28, 2025 Dr. Andrew Maurice DO Emergency Provider Activ e Start: May 28, 2025 Dr. Myra Null MD Admit Provider Active St art: May 28, 2025 Dr. Myra Null MD Other Provider Active St art: May 28, 2025 Dr. Mao Becker DO Attending Provider Active Start: May 28, 2025 Dr. Mao Becker DO Other Provider Active S tart: May 28, 2025 Team Status: Active Member Role/Relationship Status Dates Abisai Haley MD Primary Care Provider Active St art: July 17, 2025 Dr. Francisco Colon MD Emergency Provider Active S tart: July 17, 2025 Dr. Canelo Myers MD Admit Provider Active Star t: July 17, 2025 Dr. Canelo Myers MD Attending Provider Active Start: July 17, 2025 Team Status: Inactive Member Role/Relationship Status Dates Abisai Haley MD Primary Care Provider Active St art: July 17, 2025 End: July 20, 2025 Dr. Francisco Colon MD Emergency Provider Active S tart: July 17, 2025 End: July 20, 2025 Dr. Canelo Myers MD Admit Provider Active Star t: July 17, 2025 End: July 20, 2025 Dr. Canelo Myers MD Attending Provider Active Start: July 17, 2025 End: July 20, 2025 Team Status: Active Member Role/Relationship Status Dates Abisai Haley MD Primary Care Provider Active St art: July 17, 2025 Dr. Francisco Colon MD Emergency Provider Active S tart: July 17, 2025 Dr. Canelo Myers MD Admit Provider Active Star t: July 17, 2025 Dr. Canelo Myers MD Attending Provider Active Start: July 17, 2025 Dr. Canelo Myers MD Other Provider Active Star t: July 17, 2025 Team Status: Active Member Role/Relationship Status Giovanna Haley MD Primary Care Provider Active St art: July 18, 2025 Dr. Francisco Colon MD Emergency Provider Active S tart: July 18, 2025 Dr. Canelo Myers MD Admit Provider Active Star t: July 18, 2025 Dr. Canelo Myers MD Attending Provider Active Start: July 18, 2025 Dr. Canelo Myers MD Other Provider Active Star t: July 18, 2025 Team Status: Active Member Role/Relationship Status Dates Abisai Haley MD Primary Care Provider Active St art: July 19, 2025 Dr. Francisco Colon MD Emergency Provider Active S tart: July 19, 2025 Dr. Canelo Myers MD Admit Provider Active Star t: July 19, 2025 Dr. Canelo yMers MD Attending Provider Active Start: July 19, 2025 Dr. Canelo Myers MD Other Provider Active Star t: July 19, 2025 Team Status: Active Member Role/Relationship Status Dates Abisai Haley MD Primary Care Provider Active St art: July 20, 2025 Dr. Francisco Colon MD Emergency Provider Active S tart: July 20, 2025 Dr. Canelo Myers MD Admit Provider Active Star t: July 20, 2025 Dr. Canelo Myers MD Attending Provider Active Start: July 20, 2025 Dr. Canelo Myers MD Other Provider Active Star t: July 20, 2025 FOR RECORDS PERTAINING TO PATIENTS WHO [...] BE BASED ON THE PRIMARY CLINICAL RECORDS. [employer] provides no warranty or guarantee of the accuracy or completeness of information in this document.
[2025-08-12 08:54] LABS: Internal QC Validated? YES +Cl - CLEAR BKGD; Pregnancy, Serum, hCG Quali. NEGATIVE Negative; Record Kit Lot#, Serum Preg. 964735
[2025-08-12 09:12] LABS: Differential Indicated MANUAL DIFF
[2025-08-12 09:14] LABS: Neutrophil-Segmented 87 % (47-70); Red Cell Morphology NORM C+C NORMAL (NORM C&C); Total Cells Counted 100 (MANUAL DIFF)
[2025-08-12 10:02] LABS: Lipase 1130 U/L (13-75)
[2025-08-12] MEDS: Lidocaine 2% Viscous15 ML UDC 10 ML PO (10:02)
[2025-08-12 10:06] LABS: AST(SGOT) 408 U/L (<=31); Alanine Aminotransfer ALT/SGPT 108 U/L (<=34); Albumin, Serum 4.6 g/dL (3.5-5.0); Alkaline Phosphatase 135 U/L (35-104); Anion Gap 48 (5-15); BUN 20 mg/dL (4-19); BUN/Creat Ratio 10.8 RATIO (10-20); Calcium,Total 9.2 mg/dL (7.6-11.0); Carbon Dioxide 17.4 mmol/L (21.0-32.0); Chloride 73 mmol/L (98-108); Globulin 3.6 g/dL (2.2-4.2); Glucose 300 mg/dL (70-99); Potassium 3.1 mmol/L (3.3-5.1)
--- NOTE | 2025-08-12 10:43 | CT_ITS ---
PROCEDURE: ABDOMEN/PELVIS W IV CONT ONLY 08/12/2025 REASON FOR EXAM: VOMITING, ELEVATED LIPASE Abdominal pain. TECHNIQUE: Procedure Code: [id number] Modality: CT Procedure: ABDOMEN/PELVIS W IV CONT ONLY Coronal and Sagittal reconstruction series were provided. CONTRAST: Isovue 370 VOLUME: 75 mL One or more dose reduction techniques were used (e.g., Automated exposure control, adjustment of the mA and/or kV according to patient size, use of iterative reconstruction technique. RADIATION DOSE SUMMARY: CTDlvol: 6 mGy DLP: 272 mGycm COMPARISON: June 2025 FINDINGS: Lung bases: Negative. ABDOMEN Liver: Moderate to severe fatty infiltration of the liver. Presumed focal fatty sparing near the falciform ligament. No focal mass. Biliary system: Negative. Negative for intrahepatic or extrahepatic ductal dilatation. Gallbladder: Removed . Spleen: Negative. Pancreas: Mild inflammation adjacent to the tail of the pancreas. No pancreatic pseudocysts phlegmon or evidence of necrosis. Adrenals: Negative. Kidneys: Negative. Negative for kidney stones, cysts or masses. Bowel: Negative for small or large-bowel obstruction. Appendix: The appendix is not identified. There is no inflammatory process identified in the right lower quadrant to suggest appendicitis. Vasculature: Negative for atherosclerotic vascular calcifications of the abdominal aorta and its branches. Peritoneum / Retroperitoneum: Negative. PELVIS Lymph nodes: Negative for inguinal or iliac adenopathy. Bladder: Negative Reproductive Organs: Uterus negative. Adnexa negative. Bones and Soft Tissues: Moderate degenerative changes L5-S1. Age appropriate degenerative changes of the lumbar spine hips and pelvis. CT/Abdomen/Pelvis W IV Cont ONLY IMPRESSION: Fatty liver. Pancreatitis without phlegmon or pseudocyst. Reading Location: [id number]
[2025-08-12] MEDS: 0.9% Normal Saline (1000mL) 1,000 ML 200 ML IV (10:50)
[2025-08-12 11:02] LABS: Base Excess 0 mmol/L (-2 to +2); PO2 63 mmHG (75-100); SITE Not entered; SO2 95 % (95-99)
[2025-08-12 11:45] LABS: BETA-HYDROXYBUTYRATE 14.0 mmol/L (0.0-0.3)
[2025-08-12 12:48] LABS: SITE Not entered; VBG BASE EXCESS 2 mmol/L (-1.0-3.5); VBG PO2 52 mmHg (25-40); VBG SO2 90 % (50-70); VBG TCO2 26 mmol/L (23-33)
--- NOTE | 2025-08-12 13:02 | PCM.HP.STD ---
HPI - General General Date of Admission: 08/12/25 Date of Service: 08/12/25 Chief Complaint: Persistent vomiting for 24 hours, inadequate oral intake for 2 weeks HPI Narrative JOSEPH RINCON, is a 50 F came to ED with persistent vomiting every half an hour to an hour for last 24 hours. She is also not able to eat and mainly trying to drink water for last 2 weeks. She has throat pain and have some difficulty in swallowing. She also felt chills hot and cold but not take her temperature. History of diabetes mellitus type 2 on metformin, glimepiride and Jardiance. Patient is very dehydrated. Patient also complained of mild abdominal pain mainly epigastric/right upper quadrant pain. Patient also drinks alcohol and last drink was about 2 weeks ago. She drinks 1/5 bottle of vodka every day. She was last admitted in June for acute on chronic pancreatitis and alcohol withdrawal symptoms. In ED, patient is tachycardic 130s per minute. BP 129/85. Pulse ox 92% on room air. ABG done in ER is alkaline, 7.56/24.6/63 on room air. Labs shows hypokalemia with K3.1, chloride 73 which is explanation for severe dehydration from vomiting causing loss of HCl which is bicarbonate poor, chloride rich gastric fluid leading to metabolic alkalosis. Lipase elevated. [facility] Medical History Admitted to alcohol detoxification center Pancreatitis Hypokalemia Nausea & vomiting Intractable abdominal pain Strain of left foot Plantar fasciitis of left foot Acute otitis media, right Contact with or exposure to other viral diseases URI (upper respiratory infection) Alcohol abuse GERD (gastroesophageal reflux disease) CPAP (continuous positive airway pressure) dependence Smoker COPD (chronic obstructive pulmonary disease) Myocardial infarct Seizures History of left heart catheterization (LHC) (~11/19/22) Sleep apnea Pancreatitis Acute lumbar myofascial strain Strain of left hip Depression Anxiety Diabetes HTN (hypertension) Type 2 diabetes mellitus Home Medications ?Medication ?Instructions ?Recorded ?Last Taken ?Type metformin 500 mg tablet 500 ea PO BID DIABETES 10/31/22 08/11/25 History aspirin 81 mg chewable tablet 81 mg PO DAILY@0800 #30 tabs 11/19/22 08/11/25 Rx bupropion HCl 150 mg 24 hr tablet, 150 mg PO DAILY 01/21/23 08/11/25 History extended release montelukast 10 mg tablet 10 mg PO DAILY 04/09/23 08/11/25 History (Singulair) pantoprazole 40 mg tablet,delayed 40 mg PO BID 05/04/23 08/11/25 History release cholecalciferol (vitamin D3) 50 50 mcg PO DAILY 08/25/23 08/11/25 History mcg (2,000 unit) capsule albuterol sulfate 90 mcg/actuation 2 puff inhalation Q6H PRN 04/27/24 08/12/25 Rx aerosol inhaler shortness of breath or wheezing #8.5 grams empagliflozin 25 mg tablet 25 mg PO DAILY 11/12/24 08/11/25 History (Jardiance) metoprolol succinate 25 mg 25 mg PO DAILY 11/12/24 08/11/25 History tablet,extended release 24 hr amlodipine 5 mg tablet 5 mg PO DAILY 04/04/25 08/11/25 History buspirone 5 mg tablet 5 mg PO TID PRN anxiety 04/04/25 08/11/25 History hydroxyzine HCl 10 mg tablet 10 mg PO TID PRN PRN anxiety 04/04/25 Unknown History levocetirizine 5 mg tablet 5 mg PO DAILY 04/11/25 08/11/25 History lisinopril 40 mg tablet 40 mg PO DAILY 04/11/25 08/11/25 History budesonide-formoterol HFA 160 2 puff inhalation BID SOB 04/26/25 08/11/25 History mcg-4.5 mcg/actuation aerosol inhaler glimepiride 4 mg tablet 4 mg PO DAILY #30 tabs 05/06/25 08/11/25 Rx atorvastatin 40 mg tablet 40 mg PO QHS 07/17/25 08/11/25 History fluoxetine 40 mg capsule 40 mg PO DAILY 07/17/25 08/11/25 History lorazepam 1 mg tablet 1 mg PO BID 08/12/25 08/11/25 History naltrexone 50 mg tablet 50 mg PO DAILY 08/12/25 08/11/25 History Allergy/AdvReac Type Severity Reaction Status Date / Time No Known Allergies Allergy Verified 08/12/25 08:21 Family History Grandfather CVA (cerebral vascular accident) Diabetes Mother Cancer Father Hypertension Grandmother Hypertension Diabetes Surgical History History of cholecystectomy H/O tooth extraction plantar fasciitis release Social History household members: spouse and children housing: house pets and animals: Yes Smoking Status: Light Smoker (<10/day) alcohol intake: current alcohol intake frequency: 3 or more drinks per day Alcohol type: hard liquor details: At least 1/5 vodka daily, recently increased EtOH intake. substance use type: does not use ROS ROS Narrative Constitutional: Reports fatigue and weakness. Subjective fever/chills HEENT: Sore throat as mentioned in HPI reports systems reviewed and no addt'l complaints, except as documented Respiratory/Chest: No acute shortness of breath or respiratory distress or wheezing. CVS: No chest pain. Gastrointestinal: Described in HPI Genitourinary: Denies burning urination or new urinary tract symptoms Musculoskeletal: Denies acute joint pain or limited range of motion. No acute injury Neurologic: Denies seizure-like symptoms. skin: No ulcer. No rash Endocrinology: Reports systems reviewed and no addt'l complaints, except as documented Hematologic/Lymphatic: Reports systems reviewed and no addt'l complaints, except as documented Rest 14 ROS are negative except as mentioned in HPI Vital Signs Vital Signs Vital Signs: 08/12/25 08:19 08/12/25 10:19 08/12/25 12:00 Temperature 97.9 F Temperature Source Oral Pulse Rate 130 H 64 120 H Respiratory Rate 18 18 18 Blood Pressure 129/85 H 127/78 H 156/70 H Blood Pressure Mean 99 94 98 Pulse Ox 92 98 92 Oxygen Delivery Method Room Air Room Air Room Air Oxygen Flow Rate (L/min) 08/12/25 12:42 08/12/25 12:50 08/12/25 12:51 Temperature 98.3 F Temperature Source Pulse Rate 118 H 115 H 115 H Respiratory Rate 14 16 17 Blood Pressure 161/85 H Blood Pressure Mean 110 Pulse Ox 92 90 95 Oxygen Delivery Method Room Air Nasal Cannula Oxygen Flow Rate (L/min) 2 Weight Weight: 118 lb 2.684 oz Body Mass Index (BMI) 20.2 Physical Exam Narrative General: Alert, Oriented x3, Cooperative HEENT: Mild tenderness over throat region. Atraumatic, PERRLA, EOMI, Normocephalic. Oral: Oral mucosa very dry. Tonsils enlarged, looks inflamed. No oral ulcer. Neck: Supple, No JVD, Negative Carotid Bruits Chest wall/Lungs: Air entry diminished in bilateral lung bases. No crepitation/rhonchi Cardiovascular: Regular rate and rhythm, Normal S1,S2, No M/G/R Abdomen: Bowel Sounds Present, Soft, tenderness over right upper quadrant/epigastric region : No dysuria. No renal angle tenderness. No suprapubic tenderness. Extremities: No edema, Capillary Refill Less than 3 Seconds Skin: No rashes, No breakdown Musculoskeletal: No Tenderness to Palpation of Joints or Extremities. ROM intact Neurological: Cranial nerves II-XII grossly intact, DTR 2+/4. No acute focal neurological deficit. Psych/Mental Status: Flat affect Results Lab / Micro Data 08/12/25 08:32 08/12/25 08:32 Labs: Laboratory Results - last 24 hr 08/12/25 08:32: WBC 11.8 H, RBC 4.05 L, Hgb 14.1, Hct 41.3, MCV 102.0 H, MCH 34.8 H, MCHC 34.1, RDW Std Deviation 50.9 H, RDW Coeff of Braxton 13.6, Plt Count 181, MPV 10.1, Neut % (Auto) Not Reportable, Absolute Neuts (auto) 10.3 H, Absolute Lymphs (auto) 1.18, Total Counted 100, Neutrophils % (Manual) 87 H, Lymphocytes % (Manual) 10 L, Monocytes % (Manual) 3, Platelet Estimate ADEQUATE, RBC Morphology NORM C+C, Sodium 139, Potassium 3.1 L, Chloride 73 L*, Carbon Dioxide 17.4 L, Anion Gap 48 H, BUN 20 H, Creatinine 1.82 H, Est GFR (MDRD) Non-Af 34 L, BUN/Creatinine Ratio 10.8, Glucose 300 H, Calcium 9.2, Total Bilirubin 1.22, AST 408 H, ALT 108 H, Alkaline Phosphatase 135 H, Total Protein 8.3, Albumin 4.6, Globulin 3.6, Albumin/Globulin Ratio 1.3, Lipase 1130 H, Serum , Qual NEGATIVE 08/12/25 10:47: Lactic Acid 1.7, b-Hydroxybutyric mmol/L 14.0 H Micro: Microbiology 08/12/25 08:32 Swab (Method) Streptococcus pyogenes (PCR) - Final 08/12/25 08:32 Mucosa - Nose SARS-CoV-2, Influenza & RSV (PCR) - Final ABG Data ABG results: ABG 08/12/25 08/12/25 10:58 12:45 Specimen Type ART GELACIO Sample Site Not entered Not entered pH 7.56 H Bicarbonate Actual 22.2 Total CO2 23 Base Excess 0 O2 Saturation 95 ABG pCO2 24.6 L ABG pO2 63 L VBG pH 7.49 H VBG pO2 52 H VBG HCO3 25 VBG Total CO2 26 VBG O2 Sat (Calc) 90 H VBG Base Excess 2 POC Mix VBG pCO2 Pt Tmp 32.2 L O2 Delivery Device Not entered Not entered Vent Mode Not entered Imaging Radiology Impression Abdomen/Pelvis CT 08/12/25 10:43 IMPRESSION: Fatty liver. Pancreatitis without phlegmon or pseudocyst. Reading Location: [id number] Assessment & Plan Assessment/Plan (1) DKA (diabetic ketoacidoses): PLAN: Plan This is 50-year-old female is being admitted for persistent vomiting for more than 24 hours along with decreased oral intake, abdominal pain. 1. DKA with history of type 2 diabetes mellitus: Patient is being admitted in ICU. Glucoses around 300 not very high because patient is on Jardiance, glimepiride and metformin. Needs to be aggressive rehydration, 2 L normal saline, 1 L/h and then D5 half NS plus KCl at 250 mL for another 2 L. Reevaluate fluid status afterwards with intake and output and IV fluid according. Insulin drip after 2 hours of IV fluid rehydration. Follow DKA protocol 2. Complex acid-base disorder, high anion gap metabolic acidosis and metabolic alkalosis with hypokalemia,: Patient has high anion gap metabolic acidosis, metabolic alkalosis from persistent vomiting, hyperchloremic HCl rich fluid and hypokalemia: BMP shows chloride very low 73 probably due to persistent HCl rich vomiting with reflex physiologic bicarb conservation, 17.4, anion gap 48. IV fluid normal saline and IV KCl ordered. Insulin drip. Sodium is normal. Serum magnesium and phosphorus ordered. 3. Acute on chronic recurrent alcoholic pancreatitis: Patient has right upper quadrant/epigastric tenderness and elevated lipase therefore meets criteria for acute pancreatitis. Last admitted in June 2025 for similar acute on chronic pancreatitis. IV fluid normal saline. Continue NPO. 4. LUI due to severe dehydration and DKA: BUN/creatinine ratio 10.8. BUN 20, creatinine 1.82. 5. Sore throat possible acute tonsillitis: Triple PCR for SARS-CoV-2, flu and RSV are negative. Strep throat negative. Started on IV Unasyn. Cepacol conservative management 6. Acute on chronic alcoholic hepatitis: AST 408, ALT 208, total bili 1.22. Icterus positive. Monitor liver chemistry 7. Chronic alcohol use disorder: She stopped drinking alcohol about 2 weeks ago. Currently not having any acute alcohol withdrawal symptoms like tremors, disorientation delirium. CIWA monitor. 8. COPD: Currently not in exacerbation. Currently smokes about half pack per day. Advised quitting smoking. 9. Dyslipidemia: On statin. Hold it for now 10. Depression with anxiety: Hold oral medications. Patient on citalopram bupropion and buspirone 11. Severe malnutrition due to chronic alcohol use and inadequate oral intake. It is evidenced by: 10% unintentional weight loss. [employer] consult DVT prophylaxis: Patient has intermittent thrombocytopenia during previous hospitalization probably due to alcohol. Current 100 81K. Patient also has history of anemia and currently H&H 14.1/41.3 probably due to hemoconcentration. Enoxaparin 40 m subcu daily Living will/advanced directive/end of life care: Patient does not have living will or advanced directive. After discussion of benefits/risks procedures involved with full code, DNR CC arrest and DNR CC, the patient opted for full code. Patient does want artificial life support including intubation, tube feed, ventilator and/chest compression, central venous catheter, vasopressor and DC shock if needed Total time spent in [id number] encounter in discussion of advanced directive 17 minutes. Microbiology Past 72 Hours 08/12/25 08:32 Swab (Method) Streptococcus pyogenes (PCR) - Final 08/12/25 08:32 Mucosa - Nose SARS-CoV-2, Influenza & RSV (PCR) - Final Laboratory Results 08/12/25 08:32: WBC 11.8 H, RBC 4.05 L, Hgb 14.1, Hct 41.3, MCV 102.0 H, MCH 34.8 H, MCHC 34.1, RDW Std Deviation 50.9 H, RDW Coeff of Braxton 13.6, Plt Count 181, MPV 10.1, Neut % (Auto) Not Reportable, Absolute Neuts (auto) 10.3 H, Absolute Lymphs (auto) 1.18, Total Counted 100, Neutrophils % (Manual) 87 H, Lymphocytes % (Manual) 10 L, Monocytes % (Manual) 3, Platelet Estimate ADEQUATE, RBC Morphology NORM C+C, Sodium 139, Potassium 3.1 L, Chloride 73 L*, Carbon Dioxide 17.4 L, Anion Gap 48 H, BUN 20 H, Creatinine 1.82 H, Est GFR (MDRD) Non-Af 34 L, BUN/Creatinine Ratio 10.8, Glucose 300 H, Calcium 9.2, Total Bilirubin 1.22, AST 408 H, ALT 108 H, Alkaline Phosphatase 135 H, Total Protein 8.3, Albumin 4.6, Globulin 3.6, Albumin/Globulin Ratio 1.3, Lipase 1130 H, Serum , Qual NEGATIVE 08/12/25 10:47: Lactic Acid 1.7, b-Hydroxybutyric mmol/L 14.0 H 08/12/25 10:58: Specimen Type ART, Sample Site Not entered, pH 7.56 H, Bicarbonate Actual 22.2, Total CO2 23, Base Excess 0, O2 Saturation 95, ABG pCO2 24.6 L, ABG pO2 63 L, O2 Delivery Device Not entered, Vent Mode Not entered 08/12/25 12:45: Specimen Type GELACIO, Sample Site Not entered, VBG pH 7.49 H, VBG pO2 52 H, VBG HCO3 25, VBG Total CO2 26, VBG O2 Sat (Calc) 90 H, VBG Base Excess 2, POC Mix VBG pCO2 Pt Tmp 32.2 L, O2 Delivery Device Not entered 08/12/25 12:57: POC Glucose 270 H Charges/Coding Visit Charges Inpatient E&M: 32181 Init Hosp L3 Procedures Hospitalists Procedures: 17006 Advncd Care Plan 30 Min
--- NOTE | 2025-08-12 13:05 | ED.RN ---
REPORT CALLED TO ICU NURSE ELDER AT THIS TIME. NO FURTHER QUESTIONS BY THE RECEIVING NURSE.
--- OUTSIDE RECORDS SUMMARY | 2025-08-12 13:06 | XMS RPT_ITS | CCD ---
Author Organization [facility] Care Team Providers Care Client Delivery Specialist Name Role Phone Required, No Pcp [...] Provider Dr. Young Kiran Referring Provider Ganesh FUEL EFFICIENT AUTOMOBILE DESIGNER, FUEL EFFICIENT AUTOMOBILE DESIGNER-C Jim Attending Provider Jose, DO Milana M Primary Care Provider Jose, DO Milana M Referring Provider Beau SMITH PA [place] Attending Provider Jose, DO Milana M Primary Care Provider Jose, DO Milana M Primary Care Provider Jose, DO Milana M Referring Provider LUIS Rosario Attending Provider Ganesh FUEL EFFICIENT AUTOMOBILE DESIGNER, FUEL EFFICIENT AUTOMOBILE DESIGNER-C Jim Attending Provider LUIS Gramajo Attending Provider Jose, DO Milana M Primary Care Provider Jose, DO Milana M Referring Provider LUIS Gramajo Attending Provider Dr. Jose Taylor Attending Provider Ihsan Aguilar DO Primary Care Provider IHSAN AGUILAR Primary Care Unavailable Sudha LEBLANC, Abisai Primary Care Provider Dr. Imani Knight DO Emergency Provider Dr. Imani Knight DO Attending Provider Dr. Frnacisco Colon MD Emergency Provider Dr. Francisco Colon MD Attending Provider Dr. Humphrey Garcia DO Referring Provider Dr. Humphrey Garcia DO Emergency Provider Antwan LEBLANC, Dr. [place] Ad[facility] Attending Provider Dashawn Moncada MD, Dr. [place] Other Provider Unavailab rob Becker DO, Dr. Cavanaugh Attending Provider Lucia LEBLANC, Dr. Lemos Other Provider Unavailable Antwan LEBLANC, Dr. [place] Attending Provider Dashawn Myers MD, Dr. Lemos Attending Provider Unavaila tommie Becker DO, Dr. Cavanaugh Other [facility] Dr. Morales Emergency Provider Chaka LEBLANC, [...] Antwan LEBLANC, Dr. [place] Admit Provider Unavailab orb Moncada MD, Dr. [place] Other Provider Unavailab [...] Drug Class(es) Dates Sig (Normalized) Sig (Original) [id number] 200 actuat albuterol 0.09 mg/actuat metered dose [...] TABLET PO DAILY February 22, 2022 12:47pm Tennga-3 Fatty Acids (3 sources) Start: 3 take 1000 mg by mouth once daily Tennga-3 Fatty Acids Active 1000 MG PO DAILY August 24, 2023 11:00pm Start: 08-25-2023 take 1000 mg by mouth once colleen ly Tennga-3 Fatty Acids Active 1000 MG PO DAILY [...] 20 mg/ml oral solution (14 sources) Uncompetitive W-bgtcfi-P-aspartate Receptor Antagonist, Sigma-1 Agonist Start: 07-01-2023 End: [...] 12:03am Start: 04-09-2023 [facility] Methylprednisolone (Medrol) 8 mg Tablet Active 8 MG PO DAILY April 09, 2023 12:00am Start: 02-12-2023 End: 02-18-2023 Start: 02-12-2023 End: 02-18-2023 take 1 tablet by mouth once Methylprednisolone (Medrol (Mario)) 4 mg tablets,dose pack Discontinued 4 mg PO per package directions 21 6 0 February 12, 2023 12:00am February 17, 2023 12:00am February 18, 2023 12:05am Tennga-3 Fatty Acids 1,000 mg capsule (6 sources) Start: 08-25-2023 End: 05-06-2025 take 1 capsule by mouth once daily Tennga-3 Fatty Acids 1,000 mg capsule Discontinued 1000 mg PO DAILY August 25, 2023 12:00am May 06, 2025 1:18pm Start: 08-25-2023 take 1 capsule by [facility] once daily Tennga-3 Fatty Acids 1,000 mg capsule Active 1000 [...] W/Diff, Automatedon 08-2 Absolute Neut Normal 2.0-7.7 [facility] Comment on above: Result Comment: Canc elled via OM: Order cancelled - Patient discharged Performed By: #### L 500.4050, L100.0100 ####[facility] [address] [place], [place], [id number] HCT Normal 37-47 [facility] Comment on above: Result Comment: Canc elled via OM: Order cancelled - Patient discharged Performed By: #### L 500.4050, L100.0100 ####[facility] [address] [place], [address] HGB Normal 12.0-15.0 [facility] Comment on above: Result Comment: Canc elled via OM: Order cancelled - Patient discharged Performed By: #### L 500.4050, L100.0100 ####[facility] [address] [place], [address] MCH Normal 27.0-32.0 [facility] Comment on above: Result Comment: Canc elled via OM: Order cancelled - Patient discharged Performed By: #### L 500.4050, L100.0100 ####[facility] [address] [place], [address] MCHC Normal 32-36 [facility] Comment on above: Result Comment: Canc elled via OM: Order cancelled - Patient discharged Performed By: #### L 500.4050, L100.0100 ####[facility] [address] [place], [address] MCV Normal 81-99 [facility] Comment on above: Result Comment: Canc elled via OM: Order cancelled - Patient discharged Performed By: #### L 500.4050, L100.0100 ####[facility] [address] [place], [address] NEUT% Normal 47-70 [facility] Comment on above: Result Comment: Canc elled via OM: Order cancelled - Patient discharged Performed By: #### L 500.4050, L100.0100 ####[facility] [address] [place], [address] PLT Normal 150-450 [facility] Comment on above: Result Comment: Canc elled via OM: Order cancelled - Patient discharged Performed By: #### L 500.4050, L100.0100 ####[facility] [address] [place], [address] RBC Normal 4.2-5.4 [facility] Comment on above: Result Comment: Canc elled via OM: Order cancelled - Patient discharged Performed By: #### L 500.4050, L100.0100 ####[facility] [address] [place], [address] RDW CV Normal 11.6-14.6 [facility] Comment on above: Result Comment: Canc elled via OM: Order cancelled - Patient discharged Performed By: #### L 500.4050, L100.0100 ####[facility] [address] [place], [address] RDW SD Normal 35.1-43.9 [facility] Comment on above: Result Comment: Canc elled via OM: Order cancelled - Patient discharged Performed By: #### L 500.4050, L100.0100 ####[facility] [address] [place], [address] WBC Normal 4.4-11.0 [facility] Comment on above: Result Comment: Canc elled via OM: Order cancelled - Patient discharged Performed By: #### L 500.4050, L100.0100 ####[facility] [address] [place], [address] Comprehensive Metabolic Prof ilon 07-22-2025 ALB Normal 3.5-5.0 [facility] Comment on above: Result Comment: Canc elled via OM: Order cancelled - Patient discharged Performed By: #### L 500.4050, L100.0100 ####[facility] [address] [place], [address] ALK PHOS Normal 35-104 [facility] Comment on above: Result Comment: Canc elled via OM: Order cancelled - Patient discharged Performed By: #### L 500.4050, L100.0100 ####[facility] [address] [place], [address] ALT Normal <=34 [facility] Comment on above: Result Comment: Canc elled via OM: Order cancelled - Patient discharged Performed By: #### L 500.4050, L100.0100 ####[facility] [address] [place], [address] AST Normal <=31 [facility] Comment on above: Result Comment: Canc elled via OM: Order cancelled - Patient discharged Performed By: #### L 500.4050, L100.0100 ####[facility] [address] [place], [address] BUN Normal 4-19 [facility] Comment on above: Result Comment: Canc elled via OM: Order cancelled - Patient discharged Performed By: #### L 500.4050, L100.0100 ####[facility] [address] [place], [address] BUN/CRE Normal 10-20 [facility] Comment on above: Result Comment: Canc elled via OM: Order cancelled - Patient discharged Performed By: #### L 500.4050, L100.0100 ####[facility] [address] [place], [address] Calcium Normal 7.6-11.0 [facility] Comment on above: Result Comment: Canc elled via OM: Order cancelled - Patient discharged Performed By: #### L 500.4050, L100.0100 ####[facility] [address] [place], [address] CL Normal 98-108 [facility] Comment on above: Result Comment: Canc elled via OM: Order cancelled - Patient discharged Performed By: #### L 500.4050, L100.0100 ####[facility] [address] [place], [address] CO2 Normal 21.0-32.0 [facility] Comment on above: Result Comment: Canc elled via OM: Order cancelled - Patient discharged Performed By: #### L 500.4050, L100.0100 ####[facility] [address] [place], [address] CREAT,SERUM Normal 0.70-1.20 [facility] Comment on above: Result Comment: Canc elled via OM: Order cancelled - Patient discharged Performed By: #### L 500.4050, L100.0100 ####[facility] [address] [place], [address] eGFR Normal >60 [facility] Comment on above: Result Comment: Canc elled via OM: Order cancelled - Patient discharged Performed By: #### L 500.4050, L100.0100 ####[facility] [address] [place], [address] GAP Normal 5-15 [facility] Comment on above: Result Comment: Canc elled via OM: Order cancelled - Patient discharged Performed By: #### L 500.4050, L100.0100 ####[facility] [address] [place], [address] GLU Normal 70-99 [facility] Comment on above: Result Comment: Canc elled via OM: Order cancelled - Patient discharged Performed By: #### L 500.4050, L100.0100 ####[facility] [address] [place], [address] Potassium Normal 3.3-5.1 [facility] Comment on above: Result Comment: Canc elled via OM: Order cancelled - Patient discharged Performed By: #### L 500.4050, L100.0100 ####[facility] [address] [place], [address] T BILI Normal 0.00-1.30 [facility] Comment on above: Result Comment: Canc elled via OM: Order cancelled - Patient discharged Performed By: #### L 500.4050, L100.0100 ####[facility] [address] [place], [address] T PROT Normal 5.9-8.4 [facility] Comment on above: Result Comment: Canc elled via OM: Order cancelled - Patient discharged Performed By: #### L 500.4050, L100.0100 ####[facility] [address] [place], [address] Comprehensive Metabolic Profil Normal 133-145 [facility] Comment on above: Result Comment: Canc elled via OM: Order cancelled - Patient discharged Performed By: #### L 500.4050, L100.0100 ####[facility] [address] [place], [address] CBC W/Diff, Automatedon 08-2 Absolute Neut Normal 2.0-7.7 [facility] Comment on above: Result Comment: Canc elled via OM: Order cancelled - Patient discharged Performed By: #### L 500.4050, L100.0100 ####[facility] [address] [place], [address] HCT Normal 37-47 [facility] Comment on above: Result Comment: Canc elled via OM: Order cancelled - Patient discharged Performed By: #### L 500.4050, L100.0100 ####[facility] [address] [place], [address] HGB Normal 12.0-15.0 [facility] Comment on above: Result Comment: Canc elled via OM: Order cancelled - Patient discharged Performed By: #### L 500.4050, L100.0100 ####[facility] [address] [place], [address] MCH Normal 27.0-32.0 [facility] Comment on above: Result Comment: Canc elled via OM: Order cancelled - Patient discharged Performed By: #### L 500.4050, L100.0100 ####[facility] [address] [place], [address] MCHC Normal 32-36 [facility] Comment on above: Result Comment: Canc elled via OM: Order cancelled - Patient discharged Performed By: #### L 500.4050, L100.0100 ####[facility] [address] [place], [address] MCV Normal 81-99 [facility] Comment on above: Result Comment: Canc elled via OM: Order cancelled - Patient discharged Performed By: #### L 500.4050, L100.0100 ####[facility] [address] [place], [address] NEUT% Normal 47-70 [facility] Comment on above: Result Comment: Canc elled via OM: Order cancelled - Patient discharged Performed By: #### L 500.4050, L100.0100 ####[facility] [address] [place], [address] PLT Normal 150-450 [facility] Comment on above: Result Comment: Canc elled via OM: Order cancelled - Patient discharged Performed By: #### L 500.4050, L100.0100 ####[facility] [address] [place], [address] RBC Normal 4.2-5.4 [facility] Comment on above: Result Comment: Canc elled via OM: Order cancelled - Patient discharged Performed By: #### L 500.4050, L100.0100 ####[facility] [address] [place], [address] RDW CV Normal 11.6-14.6 [facility] Comment on above: Result Comment: Canc elled via OM: Order cancelled - Patient discharged Performed By: #### L 500.4050, L100.0100 ####[facility] [address] [place], [address] RDW SD Normal 35.1-43.9 [facility] Comment on above: Result Comment: Canc elled via OM: Order cancelled - Patient discharged Performed By: #### L 500.4050, L100.0100 ####[facility] [address] [place], [address] WBC Normal 4.4-11.0 [facility] Comment on above: Result Comment: Canc elled via OM: Order cancelled - Patient discharged Performed By: #### L 500.4050, L100.0100 ####[facility] [address] [place], [address] Comprehensive Metabolic Prof ilon 07-21-2025 ALB Normal 3.5-5.0 [facility] Comment on above: Result Comment: Canc elled via OM: Order cancelled - Patient discharged Performed By: #### L 500.4050, L100.0100 ####[facility] [address] [place], [address] ALK PHOS Normal 35-104 [facility] Comment on above: Result Comment: Canc elled via OM: Order cancelled - Patient discharged Performed By: #### L 500.4050, L100.0100 ####[facility] [address] [place], [address] ALT Normal <=34 [facility] Comment on above: Result Comment: Canc elled via OM: Order cancelled - Patient discharged Performed By: #### L 500.4050, L100.0100 ####[facility] [address] [place], [address] AST Normal <=31 [facility] Comment on above: Result Comment: Canc elled via OM: Order cancelled - Patient discharged Performed By: #### L 500.4050, L100.0100 ####[facility] [address] [place], [address] BUN Normal 4-19 [facility] Comment on above: Result Comment: Canc elled via OM: Order cancelled - Patient discharged Performed By: #### L 500.4050, L100.0100 ####[facility] [address] [place], [address] BUN/CRE Normal 10-20 [facility] Comment on above: Result Comment: Canc elled via OM: Order cancelled - Patient discharged Performed By: #### L 500.4050, L100.0100 ####[facility] [address] [place], [address] Calcium Normal 7.6-11.0 [facility] Comment on above: Result Comment: Canc elled via OM: Order cancelled - Patient discharged Performed By: #### L 500.4050, L100.0100 ####[facility] [address] [place], [address] CL Normal 98-108 [facility] Comment on above: Result Comment: Canc elled via OM: Order cancelled - Patient discharged Performed By: #### L 500.4050, L100.0100 ####[facility] [address] [place], [address] CO2 Normal 21.0-32.0 [facility] Comment on above: Result Comment: Canc elled via OM: Order cancelled - Patient discharged Performed By: #### L 500.4050, L100.0100 ####[facility] [address] [place], [address] CREAT,SERUM Normal 0.70-1.20 [facility] Comment on above: Result Comment: Canc elled via OM: Order cancelled - Patient discharged Performed By: #### L 500.4050, L100.0100 ####[facility] [address] [place], [address] eGFR Normal >60 [facility] Comment on above: Result Comment: Canc elled via OM: Order cancelled - Patient discharged Performed By: #### L 500.4050, L100.0100 ####[facility] [address] [place], [address] GAP Normal 5-15 [facility] Comment on above: Result Comment: Canc elled via OM: Order cancelled - Patient discharged Performed By: #### L 500.4050, L100.0100 ####[facility] [address] [place], [address] GLU Normal 70-99 [facility] Comment on above: Result Comment: Canc elled via OM: Order cancelled - Patient discharged Performed By: #### L 500.4050, L100.0100 ####[facility] [address] [place], [address] Potassium Normal 3.3-5.1 [facility] Comment on above: Result Comment: Canc elled via OM: Order cancelled - Patient discharged Performed By: #### L 500.4050, L100.0100 ####[facility] [address] [place], [address] T BILI Normal 0.00-1.30 [facility] Comment on above: Result Comment: Canc elled via OM: Order cancelled - Patient discharged Performed By: #### L 500.4050, L100.0100 ####[facility] [address] [place], [address] T PROT Normal 5.9-8.4 [facility] Comment on above: Result Comment: Canc elled via OM: Order cancelled - Patient discharged Performed By: #### L 500.4050, L100.0100 ####[facility] [address] [place], [address] Comprehensive Metabolic Profil Normal 133-145 [facility] Comment on above: Result Comment: Canc elled via OM: Order cancelled - Patient discharged Performed By: #### L 500.4050, L100.0100 ####[facility] [address] [place], [place], [address] Absolute lymphocyte countOrd ered By: Canelo Myers on 07-20-2025 Lymphocytes Auto (Unsp spec) [#/Vol] 0.83 10*3/uL 0.83-4.51 [facility] Anion gap in Serum or Plasma Ordered By: Canelo Myers on 07-20-2025 Anion gap [Moles/Vol] 10 mmol/L 5-15 [facility] Automated lymphocyte count a s percentage of total leukocytesOrdered By: Canelo Myers on 07-20-2025 Lymphocytes/100 WBC Auto (Unsp spec) 19.5 % 19- [facility] BUN/creatinine ratioOrdered By: Canelo Myers on 07-20-2025 Urea nitrogen/Creatinine [Mass ratio] 10.1 mg/mg 10-20 [facility] Basophil percentageOrdered B y: Canelo Myers on 07-20-2025 Basophils/100 WBC (Bld) 0.2 % 0-1 [facility] Bedside Glucoseon 07-20-2025 FINGERSTICK GLU 217 mg/dL High 74-106 [facility] Comment on above: Result Comment: CHAUNCEY GEMENT OF PATIENT CARE PER NURSING PROTOCOL Performed By: #### L 501.080 ####[facility] [address] [place], [place], [id number] FINGERSTICK GLU 111 mg/dL High 74-106 [facility] Comment on above: Result Comment: CHAUNCEY GEMENT OF PATIENT CARE PER NURSING PROTOCOL Performed By: #### L 501.080 ####[facility] [address] [place], [address] Bilirubin, totalOrdered By: Canelo Myers on 07-20-2025 Bilirubin [Mass/Vol] 0.86 mg/dL 0.00-1.30 [facility] CBC W/Diff, Automatedon 06-30 Absolute Lymph 0.83 X10 3/uL Normal 0.83-4.51 [facility] Comment on above: Performed By: #### L 100.0100, L500.4050 ####[facility] [address] [place], [address] Absolute Neut 2.8 X10 3/uL Normal 2.0-7.7 [facility] Comment on above: Performed By: #### L 100.0100, L500.4050 ####[facility] [address] [place], [address] Basophils/100 WBC (Bld) 0.2 % Normal 0-1 [facility] Comment on above: Performed By: #### L 100.0100, L500.4050 ####[facility] [address] [place], [address] Eosinophils/100 WBC (Bld) 1.6 % Normal 0-5 [facility] Comment on above: Performed By: #### L 100.0100, L500.4050 ####[facility] [address] [place], [address] Erythrocyte distribution width (RBC) [Ratio] 15.2 % High 11.6-14.6 [facility] Comment on above: Performed By: #### L 100.0100, L500.4050 ####[facility] [address] [place], [address] Hematocrit (Bld) [Volume fraction] 29.2 % Low 37-47 [facility] Comment on above: Performed By: #### L 100.0100, L500.4050 ####[facility] [address] [place], [address] Hemoglobin (Bld) [Mass/Vol] 9.6 g/dL Low 12.0-15.0 [facility] Comment on above: Performed By: #### L 100.0100, L500.4050 ####[facility] [address] [place], [address] IG% 0.200 Normal 0.0-0.9 [facility] Comment on above: Result Comment: IG% - Immature Granulocytes (promyelocytes, myelocytes andmetamyelocytes) > 1% indicates that a LEFT SHIFT is Present. Performed By: #### L 100.0100, L500.4050 ####[facility] [address] [place], [address] Lymphocytes/100 WBC (Bld) 19.5 % Normal 19-41 [facility] Comment on above: Performed By: #### L 100.0100, L500.4050 ####[facility] [address] [place], [address] MCH (RBC) [Entitic mass] 33.8 pg High 27.0-32.0 [facility] [facility] Comment on above: Performed By: #### L 100.0100, L500.4050 ####[facility] [address] [place], [address] MCHC (RBC) [Mass/Vol] 32.9 g/dL Normal 32-36 [facility] [place] Comment on above: Performed By: #### L 100.0100, L500.4050 ####[facility] [address] [place], [address] MCV (RBC) [Entitic vol] 102.8 fL High 81-99 [facility] Comment on above: Performed By: #### L 100.0100, L500.4050 ####[facility] [address] [place], [address] Monocytes/100 WBC (Bld) 11.8 % High 0-10 [facility] Comment on above: Performed By: #### L 100.0100, L500.4050 ####[facility] [address] [place], [address] Neutrophils/100 WBC (Bld) 66.7 % Normal 47-70 [facility] Comment on above: Performed By: #### L 100.0100, L500.4050 ####[facility] [address] [place], [address] Nucleated RBC (Bld) [#/Vol] 0 10*3/uL Normal 0-5 [facility] Comment on above: Performed By: #### L 100.0100, L500.4050 ####[facility] [address] [place], [address] Platelet mean volume (Bld) [Entitic vol] 10.9 fL Normal 6.2-12.0 [facility] Comment on above: Performed By: #### L 100.0100, L500.4050 ####[facility] [address] [place], [address] Platelets (Bld) [#/Vol] 114 10*3/uL Low 150-450 [facility] Comment on above: Performed By: #### L 100.0100, L500.4050 ####[facility] [address] [place], [address] RBC (Bld) [#/Vol] 2.84 10*6/uL Low 4.2-5.4 [facility] Comment on above: Performed By: #### L 100.0100, L500.4050 ####[facility] [address] [place], [address] RDW SD 57.6 fl High 35.1-43.9 [facility] Comment on above: Performed By: #### L 100.0100, L500.4050 ####[facility] [address] [place], [address] WBC (Bld) [#/Vol] 4.3 10*3/uL Low 4.4-11.0 [facility] Comment on above: Performed By: #### L 100.0100, L500.4050 ####[facility] [address] [place], [address] Carbon dioxide, total [Moles /volume] in Central venous bloodOrdered By: Canelo Myers on 07-20-2025 CO2 [Moles/Vol] 27.0 mmol/L 21.0-32.0 [facility] Chloride assayOrdered By: Henrry Myers on 07-20-2025 Chloride [Moles/Vol] 103 mmol/L 98-108 [facility] Comprehensive Metabolic Prof ilon 07-20-2025 Albumin [Mass/Vol] 3.0 g/dL Low 3.5-5.0 [facility] Comment on above: Performed By: #### L 100.0100, L500.4050 ####[facility] [address] [place], [address] Albumin/Globulin [Mass ratio] 1.4 {ratio} Normal 0.9-2.4 [facility] Comment on above: Performed By: #### L 100.0100, L500.4050 ####[facility] [address] [place], [address] ALK PHOS 134 U/L High 35-104 [facility] Comment on above: Performed By: #### L 100.0100, L500.4050 ####[facility] [address] [place], [address] ALT [Catalytic activity/Vol] 114 U/L High <=34 [facility] Comment on above: Performed By: #### L 100.0100, L500.4050 ####[facility] [address] [place], [address] AST [Catalytic activity/Vol] 136 U/L High <=31 [facility] Comment on above: Performed By: #### L 100.0100, L500.4050 ####[facility] [address] [place], [address] Bilirubin [Mass/Vol] 0.86 mg/dL Normal 0.00-1.30 [facility] Comment on above: Performed By: #### L 100.0100, L500.4050 ####[facility] [address] [place], [address] BUN/CRE 10.1 RATIO Normal 10-20 [facility] Comment on above: Performed By: #### L 100.0100, L500.4050 ####[facility] [address] [place], [address] Calcium [Mass/Vol] 7.6 mg/dL Normal 7.6-11.0 [facility] Comment on above: Performed By: #### L 100.0100, L500.4050 ####[facility] [address] [place], [address] Chloride [Moles/Vol] 103 mmol/L Normal 98-108 [facility] Comment on above: Performed By: #### L 100.0100, L500.4050 ####[facility] [address] [place], [address] CO2 [Moles/Vol] 27.0 mmol/L Normal 21.0-32.0 [facility] Comment on above: Performed By: #### L 100.0100, L500.4050 ####[facility] [address] [place], [address] Creatinine [Mass/Vol] 0.40 mg/dL Low 0.70-1.20 [facility] [place] Comment on above: Performed By: #### L 100.0100, L500.4050 ####[facility] [address] [place], [address] ECRCL 148.53 ml/min Normal 50-250 [facility] Comment on above: Performed By: #### L 100.0100, L500.4050 ####[facility] [address] [place], [address] GAP 10 Normal 5-15 [facility] Comment on above: Performed By: #### L 100.0100, L500.4050 ####[facility] [address] [place], [address] GFR/1.73 sq M.predicted among non-blacks MDRD (S/P/Bld) [Vol rate/Area] 122 mL/min/{1.73_m2} Normal >60 [facility] Comment on above: Result Comment: mL/m in/1.73m2 CKD-EPI Creatinine Equation (2020) Performed By: #### L 100.0100, L500.4050 ####[facility] [address] [place], [address] Globulin (S) [Mass/Vol] 2.1 g/dL Low 2.2-4.2 [facility] Comment on above: Performed By: #### L 100.0100, L500.4050 ####[facility] [address] [place], [address] Glucose [Mass/Vol] 107 mg/dL High 70-99 [facility] Comment on above: Performed By: #### L 100.0100, L500.4050 ####[facility] [address] [place], [address] Potassium [Moles/Vol] 3.6 mmol/L Normal 3.3-5.1 [facility] [place] Comment on above: Performed By: #### L 100.0100, L500.4050 ####[facility] [address] [place], [address] Sodium [Moles/Vol] 140 mmol/L Normal 133-145 [facility] Comment on above: Performed By: #### L 100.0100, L500.4050 ####[facility] [address] [place], [address] T PROT 5.1 g/dL Low 5.9-8.4 [facility] Comment on above: Performed By: #### L 100.0100, L500.4050 ####[facility] [address] [place], [address] Urea nitrogen [Mass/Vol] 4 mg/dL Normal 4-19 [facility] Comment on above: Performed By: #### L 100.0100, L500.4050 ####[facility] [address] [place], [address] Eosinophil percentageOrdered By: Canelo Myers on 07-20-2025 Eosinophils/100 WBC (Bld) 1.6 % 0-5 [facility] Erythrocyte distribution wid th ratioOrdered By: Canelo Myers on 07-20-2025 Erythrocyte distribution width (RBC) [Ratio] 15.2 % High 11.6-14.6 [facility] Erythrocyte distribution wid th standard deviationOrdered By: Canelo Myers on 07-20-2025 Erythrocyte distribution width (RBC) [Ratio] 57.6 fl High 35.1-43.9 [facility] Glomerular filtration rate ( GFR) estimation/1.73 sq m using serum, plasma, or whole bOrdered By: Canelo Myers on 07-20-2025 GFR/1.73 sq M.predicted among non-blacks MDRD (S/P/Bld) [Vol rate/Area] 122 mL/min/{1.73_m2} >60 [facility] deOrdered By: Canelo Myers on 07-20-2025 Glucose [Mass/Vol] 217 mg/dL High 74-106 [facility] Hematocrit Auto (Bld) [Volum e fraction]Ordered By: Canelo Myers on 07-20-2025 Hematocrit (Bld) [Volume fraction] 29.2 % Low 37-47 [facility] Hemoglobin measurementOrdere d By: Canelo Myers on 07-20-2025 Hemoglobin (Bld) [Mass/Vol] 9.6 g/dL Low 12.0-15.0 [facility] Immature granulocytes/100 WB C Auto (Bld)Ordered By: Canelo Myers on 07-20-2025 Immature granulocytes/100 WBC (Bld) 0.200 % 0.0-0.9 [facility] MCV (mean corpuscular volume ) determinationOrdered By: Canelo Myers on 07-20-2025 MCV (RBC) [Entitic vol] 102.8 fL High 81-99 [facility] Mean corpuscular hemoglobin (MCH) determinationOrdered By: Canelo Myers on 07-20-2025 MCH (RBC) [Entitic mass] 33.8 pg High 27.0-32.0 [facility] Monocyte percentageOrdered B y: Canelo Myers on 07-20-2025 Monocytes/100 WBC (Bld) 11.8 % High 0-10 [facility] Neutrophil percentageOrdered By: Canelo Myers on 07-20-2025 Neutrophils/100 WBC (Bld) 66.7 % 47-70 [facility] No Panel InformationOrdered By: Canelo Myers on 07-20-2025 136 U/L High <32 [facility] Platelet countOrdered By: Henrry Myers on 07-20-2025 Platelets (Bld) [#/Vol] 114 10*3/uL Low 150-450 [facility] Potassium measurement (mass/ volume)Ordered By: Canelo Myers on 07-20-2025 Potassium (Unsp spec) [Mass/Vol] 3.6 mmol/L 3.3-5.1 [facility] RBC Auto (Bld) [#/Vol]Ordere d By: Canelo Myers on 07-20-2025 RBC (Bld) [#/Vol] 2.84 10*6/uL Low 4.2-5.4 [facility] Serum creatinine measurement (mass/volume)Ordered By: Canelo Myers on 07-20-2025 Creatinine [Mass/Vol] 0.40 mg/dL Low 0.70-1.20 [facility] Serum globulin measurementOr dered By: Canelo Myers on 07-20-2025 Globulin (S) [Mass/Vol] 2.1 g/dL Low 2.2-4.2 [facility] Serum glucose measurement (m ass/volume)Ordered By: Canelo Myers on 07-20-2025 Glucose [Mass/Vol] 107 mg/dL High 70-99 [facility] Serum or plasma alanine wilkerson otransferase (ALT) measurementOrdered By: Canelo Myers on 07-20-2025 ALT [Catalytic activity/Vol] 114 U/L High <35 [facility] Serum or plasma albumin alphonso urement (mass/volume)Ordered By: Canelo Myers on 07-20-2025 Albumin [Mass/Vol] 3.0 g/dL Low 3.5-5.0 [facility] Serum or plasma albumin/glob ulin mass ratioOrdered By: Canelo Myers on 07-20-2025 Albumin/Globulin [Mass ratio] 1.4 {ratio} 0.9-2.4 [facility] Serum or plasma alkaline trinity sphatase measurementOrdered By: Canelo Myers on 07-20-2025 ALP [Catalytic activity/Vol] 134 U/L High 35-104 [facility] Serum or plasma calcium alphonso urement (mass/volume)Ordered By: Canelo Myers on 07-20-2025 Calcium [Mass/Vol] 7.6 mg/dL 7.6-11.0 [facility] Serum or plasma urea nitroge n measurement (mass/volume)Ordered By: Canelo Myers on 07-20-2025 Urea nitrogen [Mass/Vol] 4 mg/dL 4-19 [facility] Sodium levelOrdered By: Ganesh Myers on 07-20-2025 Sodium [Moles/Vol] 140 mmol/L 133-145 [facility] Total proteinOrdered By: Guido Myers on 07-20-2025 Protein [Mass/Vol] 5.1 g/dL Low 5.9-8.4 [facility] White blood cell (WBC) count Ordered By: Canelo Myers on 07-20-2025 WBC (Bld) [#/Vol] 4.3 10*3/uL Low 4.4-11.0 [facility] Bedside Glucoseon 07-19-2025 FINGERSTICK GLU 121 mg/dL High 74-106 [facility] Comment on above: Result Comment: CHAUNCEY GEMENT OF PATIENT CARE PER NURSING PROTOCOL Performed By: #### L 501.080 ####[facility] [address] [place], [address] FINGERSTICK GLU 91 mg/dL Normal 74-106 [facility] Comment on above: Result Comment: CHAUNCEY GEMENT OF PATIENT CARE PER NURSING PROTOCOL Performed By: #### L 501.080 ####[facility] [address] [place], [address] FINGERSTICK GLU 140 mg/dL High 74-106 [facility] Comment on above: Result Comment: CHAUNCEY GEMENT OF PATIENT CARE PER NURSING PROTOCOL Performed By: #### L 501.080 ####[facility] [address] [place], [address] FINGERSTICK GLU 94 mg/dL Normal 74-106 [facility] Comment on above: Result Comment: CHAUNCEY GEMENT OF PATIENT CARE PER NURSING PROTOCOL Performed By: #### L 501.080 ####[facility] [address] [place], [address] CBC W/Diff, Automatedon 06-30 PLT EST SLT DEC Normal ADEQ [facility] Comment on above: Performed By: #### L 500.4050, L100.0100 ####[facility] [address] [place], [address] Comprehensive Metabolic Prof ilon 07-19-2025 Albumin [Mass/Vol] 3.0 g/dL Low 3.5-5.0 [facility] Comment on above: Performed By: #### L 500.4050, L100.0100 ####[facility] [address] [place], [address] Albumin/Globulin [Mass ratio] 1.4 {ratio} Normal 0.9-2.4 [facility] Comment on above: Performed By: #### L 500.4050, L100.0100 ####[facility] [address] [place], [address] ALK PHOS 133 U/L High 35-104 [facility] Comment on above: Performed By: #### L 500.4050, L100.0100 ####[facility] [address] [place], [address] ALT [Catalytic activity/Vol] 150 U/L High <=34 [facility] Comment on above: Performed By: #### L 500.4050, L100.0100 ####[facility] [address] [place], [address] AST [Catalytic activity/Vol] 289 U/L High <=31 [facility] Comment on above: Performed By: #### L 500.4050, L100.0100 ####[facility] [address] [place], [address] Bilirubin [Mass/Vol] 1.07 mg/dL Normal 0.00-1.30 [facility] Comment on above: Performed By: #### L 500.4050, L100.0100 ####[facility] [address] [place], [address] BUN/CRE 6.1 RATIO Low 10-20 [facility] Comment on above: Performed By: #### L 500.4050, L100.0100 ####[facility] [address] [place], [address] Calcium [Mass/Vol] 7.0 mg/dL Low 7.6-11.0 [facility] Comment on above: Performed By: #### L 500.4050, L100.0100 ####[facility] [address] [place], [address] Chloride [Moles/Vol] 98 mmol/L Normal 98-108 [facility] Comment on above: Performed By: #### L 500.4050, L100.0100 ####[facility] [address] [place], [address] CO2 [Moles/Vol] 25.2 mmol/L Normal 21.0-32.0 [facility] Comment on above: Performed By: #### L 500.4050, L100.0100 ####[facility] [address] [place], [address] Creatinine [Mass/Vol] 0.42 mg/dL Low 0.70-1.20 [facility] [place] Comment on above: Performed By: #### L 500.4050, L100.0100 ####[facility] [address] [place], [address] ECRCL 141.45 ml/min Normal 50-250 [facility] Comment on above: Performed By: #### L 500.4050, L100.0100 ####[facility] [address] [place], [address] GAP 10 Normal 5-15 [facility] Comment on above: Performed By: #### L 500.4050, L100.0100 ####[facility] [address] [place], [address] GFR/1.73 sq M.predicted among non-blacks MDRD (S/P/Bld) [Vol rate/Area] 121 mL/min/{1.73_m2} Normal >60 [facility] Comment on above: Result Comment: mL/m in/1.73m2 CKD-EPI Creatinine Equation (2020) Performed By: #### L 500.4050, L100.0100 ####[facility] [address] [place], [address] Globulin (S) [Mass/Vol] 2.1 g/dL Low 2.2-4.2 [facility] Comment on above: Performed By: #### L 500.4050, L100.0100 ####[facility] [address] [place], [address] Glucose [Mass/Vol] 93 mg/dL Normal 70-99 [facility] Comment on above: Performed By: #### L 500.4050, L100.0100 ####[facility] [address] [place], [address] Potassium [Moles/Vol] 3.5 mmol/L Normal 3.3-5.1 [facility] Comment on above: Performed By: #### L 500.4050, L100.0100 ####[facility] [address] [place], [address] Sodium [Moles/Vol] 134 mmol/L Normal 133-145 [facility] Comment on above: Performed By: #### L 500.4050, L100.0100 ####[facility] [address] [place], [address] T PROT 5.0 g/dL Low 5.9-8.4 [facility] Comment on above: Performed By: #### L 500.4050, L100.0100 ####[facility] [address] [place], [address] Urea nitrogen [Mass/Vol] 3 mg/dL Low 4-19 [facility] Comment on above: Performed By: #### L 500.4050, L100.0100 ####[facility] [address] [place], [address] Platelet estimateOrdered By: Canelo Myers on 07-19-2025 Platelets LM Ql (Bld) SLT DEC ADEQ [facility] Bedside Glucoseon 07-18-2025 FINGERSTICK GLU 104 mg/dL Normal 74-106 [facility] Comment on above: Result Comment: CHAUNCEY RIZO OF PATIENT CARE PER NURSING PROTOCOL Performed By: #### L 501.080 ####[facility] [address] [place], [address] FINGERSTICK GLU 108 mg/dL High 74-106 [facility] Comment on above: Result Comment: CHAUNCEY GEMENT OF PATIENT CARE PER NURSING PROTOCOL Performed By: #### L 501.080 ####[facility] [address] [place], [address] FINGERSTICK GLU 109 mg/dL High 74-106 [facility] Comment on above: Result Comment: CHAUNCEY GEMENT OF PATIENT CARE PER NURSING PROTOCOL Performed By: #### L 501.080 ####[facility] [address] [place], [address] FINGERSTICK GLU 84 mg/dL Normal 74-106 [facility] Comment on above: Result Comment: CHAUNCEY GEMENT OF PATIENT CARE PER NURSING PROTOCOL Performed By: #### L 501.080 ####[facility] [address] [place], [address] CBC W/Diff, Automatedon 08-2 0-2025 Absolute Lymph 0.64 X10 3/uL Low 0.83-4.51 [facility] Comment on above: Performed By: #### L 500.4050, L501.5200, L501.2300, L100.0100 ####[facility] [address] [place], [address] Absolute Neut 3.3 X10 3/uL Normal 2.0-7.7 [facility] Comment on above: Performed By: #### L 500.4050, L501.5200, L501.2300, L100.0100 ####[facility] [address] [place], [address] Basophils/100 WBC (Bld) 0.4 % Normal 0-1 [facility] Comment on above: Performed By: #### L 500.4050, L501.5200, L501.2300, L100.0100 ####[facility] [address] [place], [address] Eosinophils/100 WBC (Bld) 2.4 % Normal 0-5 [facility] Comment on above: Performed By: #### L 500.4050, L501.5200, L501.2300, L100.0100 ####[facility] [address] [place], [address] Erythrocyte distribution width (RBC) [Ratio] 15.8 % High 11.6-14.6 [facility] Comment on above: Performed By: #### L 500.4050, L501.5200, L501.2300, L100.0100 ####[facility] [address] [place], [address] Hematocrit (Bld) [Volume fraction] 32.6 % Low 37-47 [facility] Comment on above: Performed By: #### L 500.4050, L501.5200, L501.2300, L100.0100 ####[facility] [address] [place], [address] Hemoglobin (Bld) [Mass/Vol] 10.8 g/dL Low 12.0-15.0 [facility] Comment on above: Performed By: #### L 500.4050, L501.5200, L501.2300, L100.0100 ####[facility] [address] [place], [address] IG% 0.700 Normal 0.0-0.9 [facility] Comment on above: Result Comment: IG% - Immature Granulocytes (promyelocytes, myelocytes andmetamyelocytes) > 1% indicates that a LEFT SHIFT is Present. Performed By: #### L 500.4050, L501.5200, L501.2300, L100.0100 ####[facility] [address] [place], [address] Lymphocytes/100 WBC (Bld) 14.1 % Low 19-41 [facility] Comment on above: Performed By: #### L 500.4050, L501.5200, L501.2300, L100.0100 ####[facility] [address] [place], [address] MCH (RBC) [Entitic mass] 33.9 pg High 27.0-32.0 [facility] Comment on above: Performed By: #### L 500.4050, L501.5200, L501.2300, L100.0100 ####[facility] [address] [place], [address] MCHC (RBC) [Mass/Vol] 33.1 g/dL Normal 32-36 [facility] Comment on above: Performed By: #### L 500.4050, L501.5200, L501.2300, L100.0100 ####[facility] [address] [place], [address] MCV (RBC) [Entitic vol] 102.2 fL High 81-99 [facility] Comment on above: Performed By: #### L 500.4050, L501.5200, L501.2300, L100.0100 ####[facility] [address] [place], [address] Monocytes/100 WBC (Bld) 9.2 % Normal 0-10 [facility] Comment on above: Performed By: #### L 500.4050, L501.5200, L501.2300, L100.0100 ####[facility] [address] [place], [address] Neutrophils/100 WBC (Bld) 73.2 % High 47-70 [facility] Comment on above: Performed By: #### L 500.4050, L501.5200, L501.2300, L100.0100 ####[facility] [address] [place], [address] Nucleated RBC (Bld) [#/Vol] 0 10*3/uL Normal 0-5 [facility] Comment on above: Performed By: #### L 500.4050, L501.5200, L501.2300, L100.0100 ####[facility] [address] [place], [address] Platelet mean volume (Bld) [Entitic vol] 10.0 fL Normal 6.2-12.0 [facility] Comment on above: Performed By: #### L 500.4050, L501.5200, L501.2300, L100.0100 ####[facility] [facility] [address] [place], [address] Platelets (Bld) [#/Vol] 103 10*3/uL Low 150-450 [facility] Comment on above: Performed By: #### L 500.4050, L501.5200, L501.2300, L100.0100 ####[facility] [address] [place], [address] RBC (Bld) [#/Vol] 3.19 10*6/uL Low 4.2-5.4 [facility] Comment on above: Performed By: #### L 500.4050, L501.5200, L501.2300, L100.0100 ####[facility] [address] [place], [address] RDW SD 58.9 fl High 35.1-43.9 [facility] Comment on above: Performed By: #### L 500.4050, L501.5200, L501.2300, L100.0100 ####[facility] [address] [place], [address] WBC (Bld) [#/Vol] 4.6 10*3/uL Normal 4.4-11.0 [facility] Comment on above: Performed By: #### L 500.4050, L501.5200, L501.2300, L100.0100 ####[facility] [address] [place], [address] Comprehensive Metabolic Prof okon 07-18-2025 Albumin [Mass/Vol] 3.3 g/dL Low 3.5-5.0 [facility] Comment on above: Performed By: #### L 500.4050, L501.5200, L501.2300, L100.0100 ####[facility] [address] [place], [address] Albumin/Globulin [Mass ratio] 1.5 {ratio} Normal 0.9-2.4 [facility] Comment on above: Performed By: #### L 500.4050, L501.5200, L501.2300, L100.0100 ####[facility] [address] [place], [address] ALK PHOS 176 U/L High 35-104 [facility] Comment on above: Performed By: #### L 500.4050, L501.5200, L501.2300, L100.0100 ####[facility] [address] [place], [address] ALT [Catalytic activity/Vol] 223 U/L High <=34 [facility] Comment on above: Performed By: #### L 500.4050, L501.5200, L501.2300, L100.0100 ####[facility] [address] [place], [address] AST [Catalytic activity/Vol] 788 U/L High <=31 [facility] Comment on above: Performed By: #### L 500.4050, L501.5200, L501.2300, L100.0100 ####[facility] [address] [place], [address] Bilirubin [Mass/Vol] 1.36 mg/dL High 0.00-1.30 [facility] Comment on above: Performed By: #### L 500.4050, L501.5200, L501.2300, L100.0100 ####[facility] [address] [place], [address] BUN/CRE 16.1 RATIO Normal 10-20 [facility] Comment on above: Performed By: #### L 500.4050, L501.5200, L501.2300, L100.0100 ####[facility] [address] [place], [address] Calcium [Mass/Vol] 7.0 mg/dL Low 7.6-11.0 [facility] Comment on above: Performed By: #### L 500.4050, L501.5200, L501.2300, L100.0100 ####[facility] [address] [place], [address] Chloride [Moles/Vol] 100 mmol/L Normal 98-108 [facility] Comment on above: Performed By: #### L 500.4050, L501.5200, L501.2300, L100.0100 ####[facility] [address] [place], [address] CO2 [Moles/Vol] 24.0 mmol/L Normal 21.0-32.0 [facility] Comment on above: Performed By: #### L 500.4050, L501.5200, L501.2300, L100.0100 ####[facility] [address] [place], [address] Creatinine [Mass/Vol] 0.32 mg/dL Low 0.70-1.20 [facility] Comment on above: Performed By: #### L 500.4050, L501.5200, L501.2300, L100.0100 ####[facility] [address] [place], [address] ECRCL 185.66 ml/min Normal 50-250 [facility] Comment on above: Performed By: #### L 500.4050, L501.5200, L501.2300, L100.0100 ####[facility] [address] [place], [address] GAP 13 Normal 5-15 [facility] Comment on above: Performed By: #### L 500.4050, L501.5200, L501.2300, L100.0100 ####[facility] [address] [place], [address] GFR/1.73 sq M.predicted among non-blacks MDRD (S/P/Bld) [Vol rate/Area] 128 mL/min/{1.73_m2} Normal >60 [facility] Comment on above: Result Comment: mL/m in/1.73m2 CKD-EPI Creatinine Equation (2020) Performed By: #### L 500.4050, L501.5200, L501.2300, L100.0100 ####[facility] [address] [place], [address] Globulin (S) [Mass/Vol] 2.2 g/dL Normal 2.2-4.2 [facility] Comment on above: Performed By: #### L 500.4050, L501.5200, L501.2300, L100.0100 ####[facility] [address] [place], [address] Glucose [Mass/Vol] 76 mg/dL Normal 70-99 [facility] Comment on above: Performed By: #### L 500.4050, L501.5200, L501.2300, L100.0100 ####[facility] [address] [place], [address] Potassium [Moles/Vol] 3.6 mmol/L Normal 3.3-5.1 [facility] Comment on above: Performed By: #### L 500.4050, L501.5200, L501.2300, L100.0100 ####[facility] [address] [place], [address] Sodium [Moles/Vol] 137 mmol/L Normal 133-145 [facility] Comment on above: Performed By: #### L 500.4050, L501.5200, L501.2300, L100.0100 ####[facility] [address] [place], [address] T PROT 5.5 g/dL Low 5.9-8.4 [facility] Comment on above: Performed By: #### L 500.4050, L501.5200, L501.2300, L100.0100 ####[facility] [address] [place], [address] Urea nitrogen [Mass/Vol] 5 mg/dL Normal 4-19 [facility] Comment on above: Performed By: #### L 500.4050, L501.5200, L501.2300, L100.0100 ####[facility] [address] [place], [address] Lipaseon 07-18-2025 Lipase [Catalytic activity/Vol] 1128 U/L High 13-75 [facility] Comment on above: Result Comment: Lucie schultz note:LIPASE revised reference range effective 23.New Lipase methodology. Expected to produce lower valuesthan the previous assay method.NEW Reference Range: 13 - 75 U/L Performed By: #### L 501.2450 ####[facility] [address] [place], [address] Magnesiumon 07-18-2025 Magnesium [Mass/Vol] 1.7 mg/dL Normal 1.5-2.2 [facility] Comment on above: Performed By: #### L 500.4050, L501.5200, L501.2300, L100.0100 ####[facility] [address] [place], [address] Magnesium measurement (mass/ volume)Ordered By: Canelo Myers on 07-18-2025 Magnesium (Unsp spec) [Mass/Vol] 1.7 mg/dL 1.5-2.2 [facility] Phosphoruson 07-18-2025 Phosphate [Mass/Vol] 2.7 mg/dL Normal 2.7-4.5 [facility] Comment on above: Performed By: #### L 500.4050, L501.5200, L501.2300, L100.0100 ####[facility] [address] [place], [address] Abdomen/Pelvis W IV Cont ONL Yon 07-17-2025 Abdomen/Pelvis W IV Cont ONLY Normal [facility] Absolute lymphocyte countOrd ered By: Franicsco Colon on 07-17-2025 Lymphocytes Auto (Unsp spec) [#/Vol] 0.78 10*3/uL Low 0.83-4.51 [facility] Alcohol, Blood (Medical)-Ser umon 07-17-2025 SERUM ETOH 34.9 mg/dL High <=10.0 [facility] Comment on above: Result Comment: This test is for medical purposes only. The legaldefinition of intoxication varies according to local law. Performed By: #### L 501.9100 ####[facility] [address] [place], [address] Amylaseon 07-17-2025 VENANCIO 898 U/L High 28-100 [facility] Comment on above: Performed By: #### L 500.4050, L501.2450, L501.2400 ####[facility] [address] [place], [address] Anion gap in Serum or Plasma Ordered By: Francisco Colon on 07-17-2025 Anion gap [Moles/Vol] 19 mmol/L High 5-15 [facility] Automated lymphocyte count a s percentage of total leukocytesOrdered By: Francisco Colon on 07-17-2025 Lymphocytes/100 WBC Auto (Unsp spec) 11.2 % Low 19-41 [facility] BUN/creatinine ratioOrdered By: Francisco Colon on 07-17-2025 Urea nitrogen/Creatinine [Mass ratio] 15.5 mg/mg 10-20 [facility] Basophil percentageOrdered B y: Francisco Colon on 07-17-2025 Basophils/100 WBC (Bld) 0.4 % 0-1 [facility] Bedside Glucoseon 07-17-2025 FINGERSTICK GLU 151 mg/dL High 74-106 [facility] Comment on above: Result Comment: CHAUNCEY GEMENT OF PATIENT CARE PER NURSING PROTOCOL Performed By: #### L 501.080 ####[facility] [address] [facility] [address] FINGERSTICK GLU 71 mg/dL Low 74-106 [facility] Comment on above: Result Comment: CHAUNCEY GEMENT OF PATIENT CARE PER NURSING PROTOCOL Performed By: #### L 501.080 ####[facility] [address] [facility] [address] Bilirubin Test strip Ql (U)O rdered By: Francisco Colon on 07-17-2025 Bilirubin Ql (U) Negative Negative [facility] Bilirubin, totalOrdered By: Francisco Colon on 07-17-2025 Bilirubin [Mass/Vol] 0.43 mg/dL 0.00-1.30 [facility] CBC W/Diff, Automatedon 06-29 Absolute Lymph 0.78 X10 3/uL Low 0.83-4.51 [facility] Comment on above: Performed By: #### L 100.0100 ####[facility] [address] [place], [address] Absolute Neut 5.6 X10 3/uL Normal 2.0-7.7 [facility] Comment on above: Performed By: #### L 100.0100 ####[facility] [address] [place], [address] Basophils/100 WBC (Bld) 0.4 % Normal 0-1 [facility] Comment on above: Performed By: #### L 100.0100 ####[facility] [address] [place], [address] Eosinophils/100 WBC (Bld) 0.3 % Normal 0-5 [facility] Comment on above: Performed By: #### L 100.0100 ####[facility] [address] [place], [address] Erythrocyte distribution width (RBC) [Ratio] 15.9 % High 11.6-14.6 [facility] Comment on above: Performed By: #### L 100.0100 ####[facility] [address] [place], [address] Hematocrit (Bld) [Volume fraction] 38.5 % Normal 37-47 [facility] Comment on above: Performed By: #### L 100.0100 ####[facility] [address] [place], [address] Hemoglobin (Bld) [Mass/Vol] 13.2 g/dL Normal 12.0-15.0 [facility] Comment on above: Performed By: #### L 100.0100 ####[facility] [address] [place], [address] IG% 0.600 Normal 0.0-0.9 [facility] Comment on above: Result Comment: IG% - Immature Granulocytes (promyelocytes, myelocytes andmetamyelocytes) > 1% indicates that a LEFT SHIFT is Present. Performed By: #### L 100.0100 ####[facility] [address] [place], [address] Lymphocytes/100 WBC (Bld) 11.2 % Low 19-41 [facility] Comment on above: Performed By: #### L 100.0100 ####[facility] [address] [place], [address] MCH (RBC) [Entitic mass] 33.8 pg High 27.0-32.0 [facility] Comment on above: Performed By: #### L 100.0100 ####[facility] [address] [place], [address] MCHC (RBC) [Mass/Vol] 34.3 g/dL Normal 32-36 [facility] Comment on above: Performed By: #### L 100.0100 ####[facility] [address] [place], [address] MCV (RBC) [Entitic vol] 98.7 fL Normal 81-99 [facility] Comment on above: Performed By: #### L 100.0100 ####[facility] [address] [place], [address] Monocytes/100 WBC (Bld) 7.2 % Normal 0-10 [facility] Comment on above: Performed By: #### L 100.0100 ####[facility] [address] [place], [address] Neutrophils/100 WBC (Bld) 80.3 % High 47-70 [facility] Comment on above: Performed By: #### L 100.0100 ####[facility] [address] [place], [address] Nucleated RBC (Bld) [#/Vol] 0 10*3/uL Normal 0-5 [facility] Comment on above: Performed By: #### L 100.0100 ####[facility] [address] [place], [address] Platelet mean volume (Bld) [Entitic vol] 9.7 fL Normal 6.2-12.0 [facility] Comment on above: Performed By: #### L 100.0100 ####[facility] [address] [place], [address] Platelets (Bld) [#/Vol] 150 10*3/uL Normal 150-450 [facility] Comment on above: Performed By: #### L 100.0100 ####[facility] [address] [place], [address] RBC (Bld) [#/Vol] 3.90 10*6/uL Low 4.2-5.4 [facility] Comment on above: Performed By: #### L 100.0100 ####[facility] [address] [place], [address] RDW SD 56.5 fl High 35.1-43.9 [facility] Comment on above: Performed By: #### L 100.0100 ####[facility] [address] [place], [address] WBC (Bld) [#/Vol] 7.0 10*3/uL Normal 4.4-11.0 [facility] Comment on above: Performed By: #### L 100.0100 ####[facility] [address] [place], [address] Carbon dioxide, total [Moles /volume] in Central venous bloodOrdered By: Francisco Colon on 07-17-2025 CO2 [Moles/Vol] 25.6 mmol/L 21.0-32.0 [facility] Chloride assayOrdered By: Peyman Colon on 07-17-2025 Chloride [Moles/Vol] 99 mmol/L 98-108 [facility] Comprehensive Metabolic Prof ilon 07-17-2025 Albumin [Mass/Vol] 3.9 g/dL Normal 3.5-5.0 [facility] Comment on above: Performed By: #### L 500.4050, L501.2450, L501.2400 ####[facility] [address] [place], [address] Albumin/Globulin [Mass ratio] 1.4 {ratio} Normal 0.9-2.4 [facility] Comment on above: Performed By: #### L 500.4050, L501.2450, L501.2400 ####[facility] [address] [place], [address] ALK PHOS 98 U/L Normal 35-104 [facility] Comment on above: Performed By: #### L 500.4050, L501.2450, L501.2400 ####[facility] [address] [place], [address] ALT [Catalytic activity/Vol] 92 U/L High <=34 [facility] Comment on above: Performed By: #### L 500.4050, L501.2450, L501.2400 ####[facility] [address] [place], [address] AST [Catalytic activity/Vol] 165 U/L High <=31 [facility] Comment on above: Performed By: #### L 500.4050, L501.2450, L501.2400 ####[facility] [address] [place], [address] Bilirubin [Mass/Vol] 0.43 mg/dL Normal 0.00-1.30 [facility] Comment on above: Performed By: #### L 500.4050, L501.2450, L501.2400 ####[facility] [address] [place], [address] BUN/CRE 15.5 RATIO Normal 10-20 [facility] Comment on above: Performed By: #### L 500.4050, L501.2450, L501.2400 ####[facility] [address] [place], [address] Calcium [Mass/Vol] 8.6 mg/dL Normal 7.6-11.0 [facility] Comment on above: Performed By: #### L 500.4050, L501.2450, L501.2400 ####[facility] [address] [place], [address] Chloride [Moles/Vol] 99 mmol/L Normal 98-108 [facility] Comment on above: Performed By: #### L 500.4050, L501.2450, L501.2400 ####[facility] [address] [place], [address] CO2 [Moles/Vol] 25.6 mmol/L Normal 21.0-32.0 [facility] Comment on above: Performed By: #### L 500.4050, L501.2450, L501.2400 ####[facility] [address] [place], [address] Creatinine [Mass/Vol] 0.39 mg/dL Low 0.70-1.20 [facility] Comment on above: Performed By: #### L 500.4050, L501.2450, L501.2400 ####[facility] [address] [place], [address] ECRCL 152.33 ml/min Normal 50-250 [facility] Comment on above: Performed By: #### L 500.4050, L501.2450, L501.2400 ####[facility] [address] [place], [address] GAP 19 High 5-15 [facility] Comment on above: Performed By: #### L 500.4050, L501.2450, L501.2400 ####[facility] [address] [place], [address] GFR/1.73 sq M.predicted among non-blacks MDRD (S/P/Bld) [Vol rate/Area] 123 mL/min/{1.73_m2} Normal >60 [facility] Comment on above: Result Comment: mL/m in/1.73m2 CKD-EPI Creatinine Equation (2020) Performed By: #### L 500.4050, L501.2450, L501.2400 ####[facility] [address] [place], [address] Globulin (S) [Mass/Vol] 2.7 g/dL Normal 2.2-4.2 [facility] Comment on above: Performed By: #### L 500.4050, L501.2450, L501.2400 ####[facility] [address] [place], [address] Glucose [Mass/Vol] 120 mg/dL High 70-99 [facility] Comment on above: Performed By: #### L 500.4050, L501.2450, L501.2400 ####[facility] [address] [place], [address] Potassium [Moles/Vol] 3.0 mmol/L Low 3.3-5.1 [facility] [place] Comment on above: Performed By: #### L 500.4050, L501.2450, L501.2400 ####[facility] [address] [place], [address] Sodium [Moles/Vol] 144 mmol/L Normal 133-145 [facility] Comment on above: Performed By: #### L 500.4050, L501.2450, L501.2400 ####[facility] [address] [place], [address] T PROT 6.6 g/dL Normal 5.9-8.4 [facility] Comment on above: Performed By: #### L 500.4050, L501.2450, L501.2400 ####[facility] [address] [place], [address] Urea nitrogen [Mass/Vol] 6 mg/dL Normal 4-19 [facility] Comment on above: Performed By: #### L 500.4050, L501.2450, L501.2400 ####[facility] [address] [place], [address] Emergency Department Summary on 07-17-2025 Emergency Department Summary Normal [facility] Eosinophil percentageOrdered By: Francisco Colon on 07-17-2025 Eosinophils/100 WBC (Bld) 0.3 % 0-5 [facility] Erythrocyte distribution wid th ratioOrdered By: Francisco Colon on 07-17-2025 Erythrocyte distribution width (RBC) [Ratio] 15.9 % High 11.6-14.6 [facility] Erythrocyte distribution wid th standard deviationOrdered By: Francisco Colon on 07-17-2025 Erythrocyte distribution width (RBC) [Ratio] 56.5 fl High 35.1-43.9 [facility] Glomerular filtration rate ( GFR) estimation/1.73 sq m using serum, plasma, or whole bOrdered By: Francisco Colon on 07-17-2025 GFR/1.73 sq M.predicted among non-blacks MDRD (S/P/Bld) [Vol rate/Area] 123 mL/min/{1.73_m2} >60 [facility] H AND P Exam - Hospitaliston 07-17-2025 H&P Exam - Hospitalist Normal [facility] Hematocrit Auto (Bld) [Volum e fraction]Ordered By: Francisco Colon on 07-17-2025 Hematocrit (Bld) [Volume fraction] 38.5 % 37-47 [facility] Hemoglobin measurementOrdere d By: Francisco Cooln on 07-17-2025 Hemoglobin (Bld) [Mass/Vol] 13.2 g/dL 12.0-15.0 [facility] Immature granulocytes/100 WB C Auto (Bld)Ordered By: Francisco Colon on 07-17-2025 Immature granulocytes/100 WBC (Bld) 0.600 % 0.0-0.9 [facility] Ketones Test strip Ql (U)Ord ered By: Francisco Colon on 07-17-2025 Ketones Ql (U) 5 mg/dl High Negative [facility] Lipaseon 07-17-2025 Lipase [Catalytic activity/Vol] U/L High 13-75 [facility] Comment on above: Result Comment: Plea se note:LIPASE revised reference range effective 23.New Lipase methodology. Expected to produce lower valuesthan the previous assay method.NEW Reference Range: 13 - 75 U/L Performed By: #### L 500.4050, L501.2450, L501.2400 ####[facility] [address] [place], [address] MCV (mean corpuscular volume ) determinationOrdered By: Francisco Colon on 07-17-2025 MCV (RBC) [Entitic vol] 98.7 fL 81-99 [facility] Magnesiumon 07-17-2025 Magnesium [Mass/Vol] 1.1 mg/dL Low 1.5-2.2 [facility] Comment on above: Performed By: #### L 501.2300, L501.5200 ####[facility] [address] [facility] [place], [place], [address] Mean corpuscular hemoglobin (MCH) determinationOrdered By: Francisco Colon on 07-17-2025 MCH (RBC) [Entitic mass] 33.8 pg High 27.0-32.0 [facility] Monocyte percentageOrdered B y: Francisco Colon on 07-17-2025 Monocytes/100 WBC (Bld) 7.2 % 0-10 [facility] Mucus LM Ql (Urine sed)Order ed By: Francisco Colon on 07-17-2025 Mucus Ql (Urine sed) 0 SEEN /hpf [facility] Neutrophil percentageOrdered By: Francisco Colon on 07-17-2025 Neutrophils/100 WBC (Bld) 80.3 % High 47-70 [facility] Nitrite Test strip Ql (U)Ord ered By: Francisco Colon on 07-17-2025 Nitrite Ql (U) Negative Negative [facility] No Panel InformationOrdered By: Francisco Colon on 07-17-2025 165 U/L High <32 [facility] Phosphoruson 07-17-2025 Phosphate [Mass/Vol] 4.4 mg/dL Normal 2.7-4.5 [facility] Comment on above: Performed By: #### L 501.2300, L501.5200 ####[facility] [address] [place], [address] Platelet countOrdered By: Peyman Colon on 07-17-2025 Platelets (Bld) [#/Vol] 150 10*3/uL 150-450 [facility] Potassium measurement (mass/ volume)Ordered By: Francisco Colon on 07-17-2025 Potassium (Unsp spec) [Mass/Vol] 3.0 mmol/L Low 3.3-5.1 [facility] ,Serum,hCG Quali.on 07-17-2025 HCG, SERUM QUAL Negative Normal [facility] Comment on above: Performed By: #### L 700.6800 ####[facility] [address] [place], [address] Protein Test strip Ql (U)Ord ered By: Francisco Colon on 07-17-2025 Protein Ql (U) 30 mg/dl High Negative [facility] Prothrombin Time w/INRon INR Coag (PPP) [Relative time] 1.0 {INR} Normal [facility] Comment on above: Performed By: #### L 300.3900 ####[facility] [address] [place], [address] PT Coag (PPP) [Time] 12.9 s Normal 11.7-14.9 [facility] Comment on above: Performed By: #### L 300.3900 ####[facility] [address] [place], [address] Prothrombin timeOrdered By: Canelo Myers on 07-17-2025 PT Coag (PPP) [Time] 12.9 s 11.7-14.9 [facility] RBC Auto (Bld) [#/Vol]Ordere d By: Francisco Colon on 07-17-2025 RBC (Bld) [#/Vol] 3.90 10*6/uL Low 4.2-5.4 [facility] Serum beta-hCG test, qualita tiveOrdered By: Francisco Colon on 07-17-2025 Beta HCG ( test) Ql Negative [facility] Serum creatinine measurement (mass/volume)Ordered By: Francisco Colon on 07-17-2025 Creatinine [Mass/Vol] 0.39 mg/dL Low 0.70-1.20 [facility] [place] Serum globulin measurementOr dered By: Francisco Colon on 07-17-2025 Globulin (S) [Mass/Vol] 2.7 g/dL 2.2-4.2 [facility] Serum glucose measurement (m ass/volume)Ordered By: Francisco Colon on 07-17-2025 Glucose [Mass/Vol] 120 mg/dL High 70-99 [facility] Serum or plasma alanine wilkerson otransferase (ALT) measurementOrdered By: Francisco Colon on 07-17-2025 ALT [Catalytic activity/Vol] 92 U/L High <35 [facility] Serum or plasma albumin alphonso urement (mass/volume)Ordered By: Francisco Colon on 07-17-2025 Albumin [Mass/Vol] 3.9 g/dL 3.5-5.0 [facility] Serum or plasma albumin/glob ulin mass ratioOrdered By: Francisco Colon on 07-17-2025 Albumin/Globulin [Mass ratio] 1.4 {ratio} 0.9-2.4 [facility] Serum or plasma alkaline trinity sphatase measurementOrdered By: Francisco Colon on 07-17-2025 ALP [Catalytic activity/Vol] 98 U/L 35-104 [facility] Serum or plasma amylase alphonso urement (enzymatic activity/volume)Ordered By: Francisco Colon on 07-17-2025 Amylase [Catalytic activity/Vol] 898 U/L High 28-100 [facility] Serum or plasma calcium alphonso urement (mass/volume)Ordered By: Francisco Colon on 07-17-2025 Calcium [Mass/Vol] 8.6 mg/dL 7.6-11.0 [facility] Serum or plasma ethanol alphonso urement (mass/volume)Ordered By: Francisco Colon on 07-17-2025 Ethanol [Mass/Vol] 34.9 mg/dL High <10.1 [facility] Serum or plasma urea nitroge n measurement (mass/volume)Ordered By: Francisco Colon on 07-17-2025 Urea nitrogen [Mass/Vol] 6 mg/dL 4-19 [facility] Sodium levelOrdered By: Francisco Colon on 07-17-2025 Sodium [Moles/Vol] 144 mmol/L 133-145 [facility] Squamous epithelial cells de tection in urine sediment by light microscopyOrdered By: Francisco Colon on 07-17-2025 Epithelial cells.squamous LM Ql (Urine sed) 0-5 SEEN /hpf 5-10 [facility] Total proteinOrdered By: Rommel Colon on 07-17-2025 Protein [Mass/Vol] 6.6 g/dL 5.9-8.4 [facility] Urinalysis, Completeon 07-17 EPI,SQUAMOUS 0-5 SEEN Normal 5-10 [facility] Comment on above: Order Comment: CLEAN CATCH Performed By: #### L 400.0001 ####[facility] [address] [facility] [address] BACTERIA 0 SEEN Normal None Seen [facility] Comment on above: Order Comment: CLEAN CATCH Performed By: #### L 400.0001 ####[facility] [address] [place], [address] Mucus Ql (Urine sed) 0 SEEN Normal [facility] Comment on above: Order Comment: CLEAN CATCH Performed By: #### L 400.0001 ####[facility] [address] [place], [address] RBC 0 SEEN Normal 0-5 [facility] Comment on above: Order Comment: CLEAN CATCH Performed By: #### L 400.0001 ####[facility] [address] [place], [address] WBC 0 SEEN Normal 0-5 [facility] Comment on above: Order Comment: CLEAN CATCH Performed By: #### L 400.0001 ####[facility] [address] [place], [address] Urine clarityOrdered By: Rommel Colon on 07-17-2025 Clarity (U) Clear Clear [facility] Urine color determinationOrd ered By: Francisoc Colon on 07-17-2025 Color (U) Yellow Yellow [facility] Urine glucose detectionOrder ed By: Francisco Colon on 07-17-2025 Glucose Ql (U) Normal mg/dl Normal [facility] Urine leukocyte esterase det ection by dipstickOrdered By: Francisco Colon on 07-17-2025 Leukocyte esterase Test strip Ql (U) 25 /ul High Negative [facility] Urine pHOrdered By: Francisco stuart on 07-17-2025 pH (U) 6.5 [pH] 5.0 - 8.0 [facility] Urine sediment bacteria coun t by microscopy (number/high power field)Ordered By: Francisco Colon on 07-17-2025 Bacteria LM.HPF (Urine sed) [#/Area] 0 /[HPF] None Seen [facility] Urine specific gravity measu rementOrdered By: Francisco Colon on 07-17-2025 Specific gravity (U) [Rel density] 1.010 1.002-1.030 [facility] Urine urobilinogen measureme ntOrdered By: Francisco Colon on 07-17-2025 Urobilinogen Ql (U) Normal mg/dl Normal [facility] [place] White blood cell (WBC) count Ordered By: Francisco Colon on 07-17-2025 WBC (Bld) [#/Vol] 7.0 10*3/uL 4.4-11.0 [facility] White blood cell countOrdere d By: Francisco Colon on 07-17-2025 White blood cell count 0 SEEN /hpf 0-5 [facility] Bedside Glucoseon 05-28-2025 FINGERSTICK GLU 259 mg/dL High 74-106 [facility] Comment on above: Result Comment: CHAUNCEY GEMENT OF PATIENT CARE PER NURSING PROTOCOL Performed By: #### L 501.080 ####[facility] [address] [place], [place], [address] FINGERSTICK GLU 164 mg/dL High [address] [facility] Comment on above: Result Comment: CHAUNCEY GEMENT OF PATIENT CARE PER NURSING PROTOCOL Performed By: #### L 501.080 ####[facility] [address] [place], [place], [address] Discharge Instructionon 05-01 Discharge Instruction Normal [facility] [place] Gl[facility] at [facility] deOrdered By: Mao Becker on 05-28-2025 Glucose [Mass/Vol] 259 mg/dL High 74-106 [facility] Comment on above: MANAGEMENT OF PATIEN T CARE PER NURSING PROTOCOL Bedside Glucoseon 05-27-2025 FINGERSTICK GLU 217 mg/dL High 74-106 [facility] Comment on above: Result Comment: CHAUNCEY GEMENT OF PATIENT CARE PER NURSING PROTOCOL Performed By: #### L 501.080 ####[facility] [address] [facility] [address] FINGERSTICK GLU 179 mg/dL High 74-106 [facility] Comment on above: Result Comment: CHAUNCEY GEMENT OF PATIENT CARE PER NURSING PROTOCOL Performed By: #### L 501.080 ####[facility] [address] [place], [address] FINGERSTICK GLU 246 mg/dL High 74-106 [facility] Comment on above: Result Comment: CHAUNCEY GEMENT OF PATIENT CARE PER NURSING PROTOCOL Performed By: #### L 501.080 ####[facility] [address] [place], [address] FINGERSTICK GLU 133 mg/dL High -106 [facility] Comment on above: Result Comment: CHAUNCEY GEMENT OF PATIENT CARE PER NURSING PROTOCOL Performed By: #### L 501.080 ####[facility] [address] [place], [address] Magnesiumon 05-27-2025 Magnesium [Mass/Vol] 1.7 mg/dL Normal 1.5-2.2 [facility] Comment on above: Performed By: #### L 501.5200 ####[facility] [address] [place], [address] Magnesium measurement (mass/ volume)Ordered By: Mao Becker on 05-27-2025 Magnesium (Unsp spec) [Mass/Vol] 1.7 mg/dL 1.5-2.2 [facility] Bedside Glucoseon 05-26-2025 FINGERSTICK GLU 243 mg/dL High 74-106 [facility] Comment on above: Result Comment: CHAUNCEY GEMENT OF PATIENT CARE PER NURSING PROTOCOL Performed By: #### L 501.080 ####[facility] [address] [place], [address] FINGERSTICK GLU 221 mg/dL High 74-106 [facility] Comment on above: Result Comment: CHAUNCEY GEMENT OF PATIENT CARE PER NURSING PROTOCOL Performed By: #### L 501.080 ####[facility] [address] [place], [address] FINGERSTICK GLU 293 mg/dL High 74-106 [facility] Comment on above: Result Comment: CHAUNCEY GEMENT OF PATIENT CARE PER NURSING PROTOCOL Performed By: #### L 501.080 ####[facility] [address] [place], [address] FINGERSTICK GLU 119 mg/dL High -106 [facility] Comment on above: Result Comment: CHAUNCEY GEMENT OF PATIENT CARE PER NURSING PROTOCOL Performed By: #### L 501.080 ####[facility] [address] [place], [address] Magnesiumon 05-26-2025 Magnesium [Mass/Vol] 1.3 mg/dL Low 1.5-2.2 [facility] Comment on above: Performed By: #### L 501.5200 ####[facility] [address] [place], [address] Alcohol, Blood (Medical)-Ser umon 05-25-2025 SERUM ETOH 312.0 mg/dL Invalid Interpretation Code <=10.0 [facility] Comment on above: Result Comment: Crit ical Result(s) Called at 0100: by: NBURNS TO LSPARR??Results read back by same.This test is for medical purposes only. The legaldefinition of intoxication varies according to local law. Performed By: #### L 505.5000, L100.0100, L501.9100, L700.6800, L500.4050 ####[facility] [address] [place], [address] Bedside Glucoseon 05-25-2025 FINGERSTICK GLU 182 mg/dL High [facility]106 [facility] Comment on above: Result Comment: CHAUNCEY GEMENT OF PATIENT CARE PER NURSING PROTOCOL Performed By: #### L 501.080 ####[facility] [address] [place], [address] FINGERSTICK GLU 187 mg/dL High [facility]106 [facility] Comment on above: Result Comment: CHAUNCEY GEMENT OF PATIENT CARE PER NURSING PROTOCOL Performed By: #### L 501.080 ####[facility] [address] [place], [address] FINGERSTICK GLU 220 mg/dL High [facility]106 [facility] Comment on above: Result Comment: CHAUNCEY GEMENT OF PATIENT CARE PER NURSING PROTOCOL Performed By: #### L 501.080 ####[facility] [address] [place], [address] FINGERSTICK GLU 179 mg/dL High [address] [place] [address] Comment on above: Result Comment: CHAUNCEY GEMENT OF PATIENT CARE PER NURSING PROTOCOL Performed By: #### L 501.080 ####[facility] [address] [place], [address] CBC W/Diff, Automatedon 06- Absolute Lymph 3.57 X10 3/uL Normal 0.83-4.51 [facility] Comment on above: Performed By: #### L 505.5000, L100.0100, L501.9100, L700.6800, L500.4050 ####[facility] [address] [place], [address] Absolute Neut 4.3 X10 3/uL Normal 2.0-7.7 [facility] Comment on above: Performed By: #### L 505.5000, L100.0100, L501.9100, L700.6800, L500.4050 ####[facility] [address] [place], [address] Basophils/100 WBC (Bld) 0.5 % Normal 0-1 [facility] Comment on above: Performed By: #### L 505.5000, L100.0100, L501.9100, L700.6800, L500.4050 ####[facility] [address] [place], [address] Eosinophils/100 WBC (Bld) 0.7 % Normal 0-5 [facility] Comment on above: Performed By: #### L 505.5000, L100.0100, L501.9100, L700.6800, L500.4050 ####[facility] [address] [place], [address] Erythrocyte distribution width (RBC) [Ratio] 13.1 % Normal 11.6-14.6 [facility] Comment on above: Performed By: #### L 505.5000, L100.0100, L501.9100, L700.6800, L500.4050 ####[facility] [address] [place], [address] Hematocrit (Bld) [Volume fraction] 38.3 % Normal 37-47 [facility] Comment on above: Performed By: #### L 505.5000, L100.0100, L501.9100, L700.6800, L500.4050 ####[facility] [address] [place], [address] Hemoglobin (Bld) [Mass/Vol] 13.2 g/dL Normal 12.0-15.0 [facility] Comment on above: Performed By: #### L 505.5000, L100.0100, L501.9100, L700.6800, L500.4050 ####[facility] [address] [place], [address] IG% 0.100 Normal 0.0-0.9 [facility] Comment on above: Result Comment: IG% - Immature Granulocytes (promyelocytes, myelocytes andmetamyelocytes) > 1% indicates that a LEFT SHIFT is Present. Performed By: #### L 505.5000, L100.0100, L501.9100, L700.6800, L500.4050 ####[facility] [address] [place], [address] Lymphocytes/100 WBC (Bld) 41.1 % High 19-41 [facility] Comment on above: Performed By: #### L 505.5000, L100.0100, L501.9100, L700.6800, L500.4050 ####[facility] [address] [place], [address] MCH (RBC) [Entitic mass] 34.6 pg High 27.0-32.0 [facility] Comment on above: Performed By: #### L 505.5000, L100.0100, L501.9100, L700.6800, L500.4050 ####[facility] [address] [place], [address] MCHC (RBC) [Mass/Vol] 34.5 g/dL Normal 32-36 [facility] [place] Comment on above: Performed By: #### L 505.5000, L100.0100, L501.9100, L700.6800, L500.4050 ####[facility] [address] [place], [address] MCV (RBC) [Entitic vol] 100.3 fL High 81-99 [facility] Comment on above: Performed By: #### L 505.5000, L100.0100, L501.9100, L700.6800, L500.4050 ####[facility] [address] [place], [address] Monocytes/100 WBC (Bld) 7.7 % Normal 0-10 [facility] Comment on above: Performed By: #### L 505.5000, L100.0100, L501.9100, L700.6800, L500.4050 ####[facility] [address] [place], [address] Neutrophils/100 WBC (Bld) 49.9 % Normal 47-70 [facility] Comment on above: Performed By: #### L 505.5000, L100.0100, L501.9100, L700.6800, L500.4050 ####[facility] [address] [place], [address] Nucleated RBC (Bld) [#/Vol] 0 10*3/uL Normal 0-5 [facility] Comment on above: Performed By: #### L 505.5000, L100.0100, L501.9100, L700.6800, L500.4050 ####[facility] [address] [place], [address] Platelet mean volume (Bld) [Entitic vol] 10.0 fL Normal 6.2-12.0 [facility] Comment on above: Performed By: #### L 505.5000, L100.0100, L501.9100, L700.6800, L500.4050 ####[facility] [address] [place], [address] Platelets (Bld) [#/Vol] 187 10*3/uL Normal 150-450 [facility] Comment on above: Performed By: #### L 505.5000, L100.0100, L501.9100, L700.6800, L500.4050 ####[facility] [address] [place], [address] RBC (Bld) [#/Vol] 3.82 10*6/uL Low 4.2-5.4 [facility] Comment on above: Performed By: #### L 505.5000, L100.0100, L501.9100, L700.6800, L500.4050 ####[facility] [address] [place], [address] RDW SD 47.9 fl High 35.1-43.9 [facility] Comment on above: Performed By: #### L 505.5000, L100.0100, L501.9100, L700.6800, L500.4050 ####[facility] [address] [place], [address] WBC (Bld) [#/Vol] 8.7 10*3/uL Normal 4.4-11.0 [facility] Comment on above: Performed By: #### L 505.5000, L100.0100, L501.9100, L700.6800, L500.4050 ####[facility] [address] [place], [address] Comprehensive Metabolic Prof [facility] 05-25-2025 Albumin [Mass/Vol] 4.1 g/dL Normal 3.5-5.0 [facility] Comment on above: Performed By: #### L 505.5000, L100.0100, L501.9100, L700.6800, L500.4050 ####[facility] [address] [place], [address] Albumin/Globulin [Mass ratio] 1.2 {ratio} Normal 0.9-2.4 [facility] Comment on above: Performed By: #### L 505.5000, L100.0100, L501.9100, L700.6800, L500.4050 ####[facility] [address] [place], [address] ALK PHOS 115 U/L High 35-104 [facility] Comment on above: Performed By: #### L 505.5000, L100.0100, L501.9100, L700.6800, L500.4050 ####[facility] [address] [place], [address] ALT [Catalytic activity/Vol] 29 U/L Normal <=34 [facility] Comment on above: Performed By: #### L 505.5000, L100.0100, L501.9100, L700.6800, L500.4050 ####[facility] [address] [place], [address] AST [Catalytic activity/Vol] 45 U/L High <=31 [facility] Comment on above: Result Comment: Hemo lysis present, Results??could be affected.?? Performed By: #### L 505.5000, L100.0100, L501.9100, L700.6800, L500.4050 ####[facility] [address] [place], [address] Bilirubin [Mass/Vol] 0.37 mg/dL Normal 0.00-1.30 [facility] Comment on above: Performed By: #### L 505.5000, L100.0100, L501.9100, L700.6800, L500.4050 ####[facility] [address] [place], [address] BUN/CRE 11.4 RATIO Normal 10-20 [facility] Comment on above: Performed By: #### L 505.5000, L100.0100, L501.9100, L700.6800, L500.4050 ####[facility] [address] [place], [address] Calcium [Mass/Vol] 8.7 mg/dL Normal 7.6-11.0 [facility] Comment on above: Performed By: #### L 505.5000, L100.0100, L501.9100, L700.6800, L500.4050 ####[facility] [address] [place], [address] Chloride [Moles/Vol] 98 mmol/L Normal 98-108 [facility] Comment on above: Performed By: #### L 505.5000, L100.0100, L501.9100, L700.6800, L500.4050 ####[facility] [address] [place], [address] CO2 [Moles/Vol] 20.9 mmol/L Low 21.0-32.0 [facility] Comment on above: Performed By: #### L 505.5000, L100.0100, L501.9100, L700.6800, L500.4050 ####[facility] [address] [place], [address] Creatinine [Mass/Vol] 0.72 mg/dL Normal 0.70-1.20 [facility] [place] Comment on above: Performed By: #### L 505.5000, L100.0100, L501.9100, L700.6800, L500.4050 ####[facility] [address] [place], [address] ECRCL 82.51 ml/min Normal 50-250 [facility] Comment on above: Performed By: #### L 505.5000, L100.0100, L501.9100, L700.6800, L500.4050 ####[facility] [address] [place], [address] GAP 21 High 5-15 [facility] Comment on above: Performed By: #### L 505.5000, L100.0100, L501.9100, L700.6800, L500.4050 ####[facility] [address] [place], [address] GFR/1.73 sq M.predicted among non-blacks MDRD (S/P/Bld) [Vol rate/Area] 104 mL/min/{1.73_m2} Normal >60 [facility] Comment on above: Result Comment: mL/m in/1.73m2 CKD-EPI Creatinine Equation (2020) Performed By: #### L 505.5000, L100.0100, L501.9100, L700.6800, L500.4050 ####[facility] [address] [place], [address] Globulin (S) [Mass/Vol] 3.4 g/dL Normal 2.2-4.2 [facility] Comment on above: Performed By: #### L 505.5000, L100.0100, L501.9100, L700.6800, L500.4050 ####[facility] [address] [place], [address] Glucose [Mass/Vol] 84 mg/dL Normal 70-99 [facility] Comment on above: Performed By: #### L 505.5000, L100.0100, L501.9100, L700.6800, L500.4050 ####[facility] [address] [place], [address] Potassium [Moles/Vol] 4.1 mmol/L Normal 3.3-5.1 [facility] [place] Comment on above: Result Comment: Hemo lysis present, Results??could be affected.?? Performed By: #### L 505.5000, L100.0100, L501.9100, L700.6800, L500.4050 ####[facility] [address] [place], [address] Sodium [Moles/Vol] 140 mmol/L Normal 133-145 [facility] Comment on above: Performed By: #### L 505.5000, L100.0100, L501.9100, L700.6800, L500.4050 ####[facility] [address] [place], [address] T PROT 7.5 g/dL Normal 5.9-8.4 [facility] Comment on above: Performed By: #### L 505.5000, L100.0100, L501.9100, L700.6800, L500.4050 ####[facility] [address] [place], [address] Urea nitrogen [Mass/Vol] 8 mg/dL Normal 4-19 [facility] Comment on above: Performed By: #### L 505.5000, L100.0100, L501.9100, L700.6800, L500.4050 ####[facility] [address] [place], [address] Emergency Department Summary on 05-25-2025 Emergency Department Summary Normal [facility] H AND P Exam - Hospitaliston 05-25-2025 H&P Exam - Hospitalist Normal [facility] Magnesiumon 05-25-2025 Magnesium [Mass/Vol] 1.6 mg/dL Normal 1.5-2.2 [facility] Comment on above: Performed By: #### L 501.5200 ####[facility] [facility] [address] [place], [address] Magnesium [Mass/Vol] 1.1 mg/dL Low 1.5-2.2 [facility] Comment on above: Order Comment: Comme nts: May add to ED labsComments: may add to ED labs Performed By: #### L 501.2300, L501.5200 ####[facility] [address] [place], [address] Magnesium measurement (mass/ volume)Ordered By: Myra Null on 05-25-2025 Magnesium (Unsp spec) [Mass/Vol] 1.1 mg/dL Low 1.5-2.2 [facility] Phosphoruson 05-25-2025 Phosphate [Mass/Vol] 4.5 mg/dL Normal 2.7-4.5 [facility] Comment on above: Order Comment: Comme nts: May add to ED labsComments: may add to ED labs Performed By: #### L 501.2300, L501.5200 ####[facility] [address] [place], [address] ,Serum,hCG Quali.on 05-25-2025 HCG, SERUM QUAL Negative Normal [facility] Comment on above: Performed By: #### L 505.5000, L100.0100, L501.9100, L700.6800, L500.4050 ####[facility] [address] [place], [address] Urinalysis, Completeon 05-25 EPI,SQUAMOUS 5-10 SEEN Normal 5-10 [facility] Comment on above: Order Comment: CLEAN CATCH Performed By: #### L 400.0001 ####[facility] [address] [place], [address] RBC 0-5 SEEN Normal 0-5 [facility] Comment on above: Order Comment: CLEAN CATCH Performed By: #### L 400.0001 ####[facility] [address] [place], [address] WBC 0-5 SEEN Normal 0-5 [facility] Comment on above: Order Comment: CLEAN CATCH Performed By: #### L 400.0001 ####[facility] [address] [place], [address] BACTERIA 0 SEEN Normal None Seen [facility] Comment on above: Order Comment: CLEAN CATCH Performed By: #### L 400.0001 ####[facility] [address] [place], [address] Mucus Ql (Urine sed) 0 SEEN Normal [facility] Comment on above: Order Comment: CLEAN CATCH Performed By: #### L 400.0001 ####[facility] [address] [place], [address] Urine Drug Screen (VISTA)on 05-25-2025 AMPHETAMINES Negative Normal <1000 ng/mL [facility] Comment on above: Performed By: #### L 505.5000, L100.0100, L501.9100, L700.6800, L500.4050 ####[facility] [address] [place], [address] BARBITIURATES Positive Normal < 200 ng/mL [facility] Comment on above: Result Comment: If c onfirmation testing is needed, a separate order will berequired to send out testing to the reference laboratory. Performed By: #### L 505.5000, L100.0100, L501.9100, L700.6800, L500.4050 ####[facility] [address] [place], [address] BENZODIAZIPINE Positive Normal < 200 ng/mL [facility] Comment on above: Result Comment: If c onfirmation testing is needed, a separate order will berequired to send out testing to the reference laboratory. Performed By: #### L 505.5000, L100.0100, L501.9100, L700.6800, L500.4050 ####[facility] [address] [place], [address] BUP Ur Drug Scr Negative Normal < 200 ng/mL [facility] Comment on above: Performed By: #### L 505.5000, L100.0100, L501.9100, L700.6800, L500.4050 ####[facility] [address] [place], [address] COCAINE Negative Normal < 300 ng/mL [facility] Comment on above: Performed By: #### L 505.5000, L100.0100, L501.9100, L700.6800, L500.4050 ####[facility] [address] [place], [address] Fentanyl Negative Normal [facility] Comment on above: Performed By: #### L 505.5000, L100.0100, L501.9100, L700.6800, L500.4050 ####[facility] [address] [place], [address] METHADONE Negative Normal < 300 ng/mL [facility] Comment on above: Performed By: #### L 505.5000, L100.0100, L501.9100, L700.6800, L500.4050 ####[facility] [address] [place], [address] OPIATES Negative Normal < 300 ng/mL [facility] Comment on above: Performed By: #### L 505.5000, L100.0100, L501.9100, L700.6800, L500.4050 ####[facility] [address] [place], [address] OXYCODONE Negative Normal < 100 ng/mL [facility] Comment on above: Performed By: #### L 505.5000, L100.0100, L501.9100, L700.6800, L500.4050 ####[facility] [address] [place], [place], [phone] PCP Negative Normal < 25 ng/mL [facility] Comment on above: Performed By: #### L 505.5000, L100.0100, L501.9100, L700.6800, L500.4050 ####[facility] [address] [place], [address] THC Negative Normal < 50 ng/mL [facility] Comment on above: Performed By: #### L 505.5000, L100.0100, L501.9100, L700.6800, L500.4050 ####[facility] [address] [place], [address] Absolute lymphocyte countOrd ered By: Andrew Maurice on 05-24-2025 Lymphocytes Auto (Unsp spec) [#/Vol] 3.57 10*3/uL 0.83-4.51 [facility] Absolute neutrophil countOrd ered By: Andrew Maurice on 05-24-2025 Neutrophils (Bld) [#/Vol] 4.3 10*3/uL 2.0-7.7 [facility] Amphetamine detection with 1 000 ng/mL as cutoffOrdered By: Andrewmark Maurice on 05-24-2025 Amphetamines Screen method >1000 ng/mL Ql (U) Negative <1000 ng/mL [facility] Amphetamines Screen method >1000 ng/mL Ql (U) Positive < 200 ng/mL [facility] Comment on above: If confirmation test ing is needed, a separate order will be required to send out testing to the reference laboratory. Anion gap in Serum or Plasma Ordered By: Andrew Maurice on 05-24-2025 Anion gap [Moles/Vol] 21 mmol/L High 5-15 [facility] Automated lymphocyte count a s percentage of total leukocytesOrdered By: Andrew Maurice on 05-24-2025 Lymphocytes/100 WBC Auto (Unsp spec) 41.1 % High 19-41 [facility] BUN/creatinine ratioOrdered By: Andrew Maurice on 05-24-2025 Urea nitrogen/Creatinine [Mass ratio] 11.4 mg/mg 10-20 [facility] Basophil percentageOrdered B y: Andrew Maurice on 05-24-2025 Basophils/100 WBC (Bld) 0.5 % 0-1 [facility] Bilirubin Test strip Ql (U)O rdered By: Andrew Maurice on 05-24-2025 Bilirubin Ql (U) Negative Negative [facility] Bilirubin, totalOrdered By: Andrew Maurice on 05-24-2025 Bilirubin [Mass/Vol] 0.37 mg/dL 0.00-1.30 [facility] Carbon dioxide, total [Moles /volume] in Central venous bloodOrdered By: Andrew Maurice on 05-24-2025 CO2 [Moles/Vol] 20.9 mmol/L Low 21.0-32.0 [facility] Chloride assayOrdered By: Yusef Maurice on 05-24-2025 Chloride [Moles/Vol] 98 mmol/L 98-108 [facility] Eosinophil percentageOrdered By: Andrew Maurice on 05-24-2025 Eosinophils/100 WBC (Bld) 0.7 % 0-5 [facility] Erythrocyte distribution wid th ratioOrdered By: Andrew Maurice on 05-24-2025 Erythrocyte distribution width (RBC) [Ratio] 13.1 % 11.6-14.6 [facility] Erythrocyte distribution wid th standard deviationOrdered By: Andrew Small on 05-24-2025 Erythrocyte distribution width (RBC) [Ratio] 47.9 fl High 35.1-43.9 [facility] Glomerular filtration rate ( GFR) estimation/1.73 sq m using serum, plasma, or whole bOrdered By: Andrew Maurice on 05-24-2025 GFR/1.73 sq M.predicted among non-blacks MDRD (S/P/Bld) [Vol rate/Area] 104 mL/min/{1.73_m2} >60 [facility] Comment on above: mL/min/1.73m2 CKD-EP I Creatinine Equation (2020) Hematocrit Auto (Bld) [Volum e fraction]Ordered By: Andrew Maurice on 05-24-2025 Hematocrit (Bld) [Volume fraction] 38.3 % 37-47 [facility] Hemoglobin measurementOrdere d By: Andrew Maurice on 05-24-2025 Hemoglobin (Bld) [Mass/Vol] 13.2 g/dL 12.0-15.0 [facility] Immature granulocytes/100 WB C Auto (Bld)Ordered By: Andrew Maurice on 05-24-2025 Immature granulocytes/100 WBC (Bld) 0.100 % 0.0-0.9 [facility] Comment on above: IG% - Immature Granu locytes (promyelocytes, myelocytes and metamyelocytes) > 1% indicates that a LEFT SHIFT is Present. Ketones Test strip Ql (U)Ord ered By: Andrew Maurice on 05-24-2025 Ketones Ql (U) 5 mg/dl High Negative [facility] Laboratory - Chemistry and C hemistry - challengeOrdered By: Andrew Maurice on 05-24-2025 AST [Catalytic activity/Vol] 45 U/L High <32 [facility] Comment on above: Hemolysis present, R esults could be affected. MCV (mean corpuscular volume ) determinationOrdered By: Andrew Maurice on 05-24-2025 MCV (RBC) [Entitic vol] 100.3 fL High 81-99 [facility] Mean corpuscular hemoglobin (MCH) determinationOrdered By: Andrew Maurice on 05-24-2025 MCH (RBC) [Entitic mass] 34.6 pg High 27.0-32.0 [facility] Mean corpuscular hemoglobin concentration (MCHC) determinationOrdered By: Andrew Maurice on 05-24-2025 MCHC (RBC) [Mass/Vol] 34.5 g/dL 32-36 [facility] Mean platelet volume determi nationOrdered By: Andrew Maurice on 05-24-2025 Platelet mean volume (Bld) [Entitic vol] 10.0 fL 6.2-12.0 [facility] Microscopic analysis of urin e for red blood cells (RBC)Ordered By: Andrew Maurice on 05-24-2025 Microscopic analysis of urine for red blood cells (RBC) 0-5 SEEN /hpf 0-5 [facility] Monocyte percentageOrdered B y: Andrew Maurice on 05-24-2025 Monocytes/100 WBC (Bld) 7.7 % 0-10 [facility] Mucus LM Ql (Urine sed)Order ed By: Andrew Maurice on 06-26-2025 Mucus Ql (Urine sed) 0 SEEN /hpf [facility] Neutrophil percentageOrdered By: Andrew Maurice on 05-24-2025 Neutrophils/100 WBC (Bld) 49.9 % 47-70 [facility] Nitrite Test strip Ql (U)Ord ered By: Andrew Maurice on 05-24-2025 Nitrite Ql (U) Negative Negative [facility] No Panel InformationOrdered By: Andrew Maurice on 05-24-2025 Urine Buprenorphine Qualitative Negative < 200 ng/mL [facility] Urine Oxycodone Screen Negative < 100 ng/mL [facility] 45 U/L High <32 [facility] Negative < 200 ng/mL [facility] Nucleated red blood cell per centageOrdered By: Andrew Maurice on 05-24-2025 Nucleated RBC/100 WBC (Bld) [Ratio] 0 % 0-5 [facility] Platelet countOrdered By: Yusef Maurice on 05-24-2025 Platelets (Bld) [#/Vol] 187 10*3/uL 150-450 [facility] Potassium measurement (mass/ volume)Ordered By: Andrew Maurice on 05-24-2025 Potassium (Unsp spec) [Mass/Vol] 4.1 mmol/L 3.3-5.1 [facility] Comment on above: Hemolysis present, R esults could be affected. Protein Test strip Ql (U)Ord ered By: Andrew Maurice on 05-24-2025 Protein Ql (U) 30 mg/dl High Negative [facility] Quantitative urine opiates m easurementOrdered By: Andrew Maurice on 05-24-2025 Opiates Ql (U) Negative < 300 ng/mL [facility] RBC Auto (Bld) [#/Vol]Ordere d By: Andrew Maurice on 05-24-2025 RBC (Bld) [#/Vol] 3.82 10*6/uL Low 4.2-5.4 [facility] Screening urine fentanyl alexis surementOrdered By: Andrew Maurice on 05-24-2025 fentaNYL Screen Ql (U) Negative [facility] Serum beta-hCG test, qualita tiveOrdered By: Andrew Maurice on 05-24-2025 Beta HCG ( test) Ql Negative [facility] Serum creatinine measurement (mass/volume)Ordered By: Andrew Maurice on 05-24-2025 Creatinine [Mass/Vol] 0.72 mg/dL 0.70-1.20 [facility] Serum globulin measurementOr dered By: Andrew Maurice on 05-24-2025 Globulin (S) [Mass/Vol] 3.4 g/dL 2.2-4.2 [facility] Serum glucose measurement (m ass/volume)Ordered By: Andrew Maurice on 05-24-2025 Glucose [Mass/Vol] 84 mg/dL 70-99 [facility] Serum or plasma alanine wilkerson otransferase (ALT) measurementOrdered By: Andrew Maurice on 05-24-2025 ALT [Catalytic activity/Vol] 29 U/L <35 [facility] Serum or plasma albumin alphonso urement (mass/volume)Ordered By: Andrew Small on 05-24-2025 Albumin [Mass/Vol] 4.1 g/dL 3.5-5.0 [facility] Serum or plasma albumin/glob ulin mass ratioOrdered By: Andrew Maurice on 05-24-2025 Albumin/Globulin [Mass ratio] 1.2 {ratio} 0.9-2.4 [facility] Serum or plasma alkaline trinity sphatase measurementOrdered By: Andrew Maurice on 05-24-2025 ALP [Catalytic activity/Vol] 115 U/L High 35-104 [facility] Serum or plasma calcium alphonso urement (mass/volume)Ordered By: Andrew Small on 05-24-2025 Calcium [Mass/Vol] 8.7 mg/dL 7.6-11.0 [facility] Serum or plasma ethanol alphonso urement (mass/volume)Ordered By: Andrew Small on 06-26-2025 Ethanol [Mass/Vol] 312.0 mg/dL High <10.1 [facility] Comment on above: Critical Result(s) C alled at 0100: by: OTTO TO LSPARR Results read back by same.This test is for medical purposes only. The legal definition of intoxication varies according to local law. Serum or plasma urea nitroge n measurement (mass/volume)Ordered By: Andrew Maurice on 05-24-2025 Urea nitrogen [Mass/Vol] 8 mg/dL 4-19 [facility] Sodium levelOrdered By: Alfie Maurice on 05-24-2025 Sodium [Moles/Vol] 140 mmol/L 133-145 [facility] Squamous epithelial cells de tection in urine sediment by light microscopyOrdered By: Andrew Maurice on 05-24-2025 Epithelial cells.squamous LM Ql (Urine sed) 5-10 SEEN /hpf 5-10 [facility] Total proteinOrdered By: Last Maurice on 05-24-2025 Protein [Mass/Vol] 7.5 g/dL 5.9-8.4 [facility] Urine benzodiazepine levelOr dered By: Andrew Maurice on 05-24-2025 Benzodiazepines Ql (U) Positive < 200 ng/mL [facility] Comment on above: If confirmation test ing is needed, a separate order will be required to send out testing to the reference laboratory. Urine clarityOrdered By: Last Maurice on 05-24-2025 Clarity (U) Clear Clear [facility] Urine cocaine levelOrdered B y: Andrew Maurice on 05-24-2025 Cocaine Ql (U) Negative < 300 ng/mL [facility] Urine color determinationOrd ered By: Andrew Maurice on 05-24-2025 Color (U) Yellow Yellow [facility] Urine vqlhy-0-kyzwzsdubafbgb abinol (THC) measurementOrdered By: Andrew Small on 05-24-2025 Cannabinoids Screen Ql (U) Negative < 50 ng/mL [facility] Urine glucose detectionOrder ed By: Andrew Maurice on 05-24-2025 Glucose Ql (U) Normal mg/dl Normal [facility] Urine leukocyte esterase det ection by dipstickOrdered By: Andrew Maurice on 05-24-2025 Leukocyte esterase Test strip Ql (U) 25 /ul High Negative [facility] Urine pHOrdered By: Andrew Barrera on 05-24-2025 pH (U) 6.0 [pH] 5.0 - 8.0 [facility] Urine phencyclidine (PCP) de tectionOrdered By: Andrew Maurice on 05-24-2025 Phencyclidine Ql (U) Negative < 25 ng/mL [facility] Urine sediment bacteria coun t by microscopy (number/high power field)Ordered By: Andrew Maurice on 05-24-2025 Bacteria LM.HPF (Urine sed) [#/Area] 0 /[HPF] None Seen [facility] Urine specific gravity measu rementOrdered By: Andrew Maurice on 05-24-2025 Specific gravity (U) [Rel density] 1.015 1.002-1.030 [facility] Urine urobilinogen measureme ntOrdered By: Andrew Maurice on 05-24-2025 Urobilinogen Ql (U) Normal mg/dl Normal [facility] White blood cell (WBC) count Ordered By: Andrew Maurice on 05-24-2025 WBC (Bld) [#/Vol] 8.7 10*3/uL 4.4-11.0 [facility] White blood cell countOrdere d By: Andrew Maurice on 05-24-2025 White blood cell count 0-5 SEEN /hpf 0-5 [facility] Bedside Glucoseon 05-06-2025 FINGERSTICK GLU 358 mg/dL High 74-106 [facility] Comment on above: Result Comment: CHAUNCEY MUIRENT OF PATIENT CARE PER NURSING PROTOCOL Performed By: #### L 501.080 ####[facility] [address] [place], [address] FINGERSTICK GLU 219 mg/dL High 74-106 [facility] Comment on above: Result Comment: CHAUNCEY GEMENT OF PATIENT CARE PER NURSING PROTOCOL Performed By: #### L 501.080 ####[facility] [address] [facility] [address] Discharge Instructionon 06-0 Discharge Instruction Normal [facility] Glucose [facility] at [facility] deOrdered By: Mao Becker on 05-06-2025 Glucose [Mass/Vol] 358 mg/dL High 74-106 [facility] Comment on above: MANAGEMENT OF PATIEN T CARE PER NURSING PROTOCOL Bedside Glucoseon 05-05-2025 FINGERSTICK GLU 331 mg/dL High [facility]106 [facility] Comment on above: Result Comment: CHAUNCEY GEMENT OF PATIENT CARE PER NURSING PROTOCOL Performed By: #### L 501.080 ####[facility] [address] [facility] [address] FINGERSTICK GLU 257 mg/dL High -106 [facility] Comment on above: Result Comment: CHAUNCEY GEMENT OF PATIENT CARE PER NURSING PROTOCOL Performed By: #### L 501.080 ####[facility] [address] [place], [address] FINGERSTICK GLU 346 mg/dL High [address] [place] [address] Comment on above: Result Comment: CHAUNCEY GEMENT OF PATIENT CARE PER NURSING PROTOCOL Performed By: #### L 501.080 ####[facility] [address] [place], [address] FINGERSTICK GLU 221 mg/dL High [facility]106 [facility] Comment on above: Result Comment: CAHUNCEY GEMENT OF PATIENT CARE PER NURSING PROTOCOL Performed By: #### L 501.080 ####[facility] [address] [facility] [address] Absolute lymphocyte countOrd ered By: Canelo Myers on 05-04-2025 Lymphocytes Auto (Unsp spec) [#/Vol] 1.36 10*3/uL 0.83-4.51 [facility] Absolute neutrophil countOrd ered By: Canelo Myers on 05-04-2025 Neutrophils (Bld) [#/Vol] 3.4 10*3/uL 2.0-7.7 [facility] Anion gap in Serum or Plasma Ordered By: Canelo Myers on 05-04-2025 Anion gap [Moles/Vol] 11 mmol/L 5-15 [facility] [place] Automated lymphocyte count a s percentage of total leukocytesOrdered By: Canelo Myers on 05-04-2025 Lymphocytes/100 WBC Auto (Unsp spec) 23.0 % 19-41 [facility] BUN/creatinine ratioOrdered By: Canelo Myers on 05-04-2025 Urea nitrogen/Creatinine [Mass ratio] 9.6 mg/mg Low 10-20 [facility] Basophil percentageOrdered B y: Canelo yMers on 05-04-2025 Basophils/100 WBC (Bld) 0.5 % 0-1 [facility] Bedside Glucoseon 05-04-2025 FINGERSTICK GLU 299 mg/dL High 74-106 [facility] Comment on above: Result Comment: CHAUNCEY GEMENT OF PATIENT CARE PER NURSING PROTOCOL Performed By: #### L 501.080 ####[facility] [address] [facility] [address] FINGERSTICK GLU 299 mg/dL High 74-106 [facility] Comment on above: Result Comment: CHAUNCEY GEMENT OF PATIENT CARE PER NURSING PROTOCOL Performed By: #### L 501.080 ####[facility] [address] [facility] [address] FINGERSTICK GLU 245 mg/dL High 74-106 [facility] Comment on above: Result Comment: CHAUNCEY GEMENT OF PATIENT CARE PER NURSING PROTOCOL Performed By: #### L 501.080 ####[facility] [address] [facility] [address] FINGERSTICK GLU 170 mg/dL High 74-106 [facility] Comment on above: Result Comment: CHAUNCEY GEMENT OF PATIENT CARE PER NURSING PROTOCOL Performed By: #### L 501.080 ####[facility] [address] [place], [address] Bilirubin, totalOrdered By: Canelo Myers on 05-04-2025 Bilirubin [Mass/Vol] 0.35 mg/dL 0.00-1.30 [facility] CBC W/Diff, Automatedon Absolute Lymph 1.36 X10 3/uL Normal 0.83-4.51 [facility] Comment on above: Performed By: #### L 100.0100, L500.4050 ####[facility] [address] [place], [address] Absolute Neut 3.4 X10 3/uL Normal 2.0-7.7 [facility] Comment on above: Performed By: #### L 100.0100, L500.4050 ####[facility] [address] [place], [address] Basophils/100 WBC (Bld) 0.5 % Normal 0-1 [facility] Comment on above: Performed By: #### L 100.0100, L500.4050 ####[facility] [address] [place], [address] Eosinophils/100 WBC (Bld) 2.7 % Normal 0-5 [facility] Comment on above: Performed By: #### L 100.0100, L500.4050 ####[facility] [address] [place], [address] Erythrocyte distribution width (RBC) [Ratio] 12.8 % Normal 11.6-14.6 [facility] Comment on above: Performed By: #### L 100.0100, L500.4050 ####[facility] [address] [place], [address] Hematocrit (Bld) [Volume fraction] 30.6 % Low 37-47 [facility] Comment on above: Performed By: #### L 100.0100, L500.4050 ####[facility] [address] [place], [address] Hemoglobin (Bld) [Mass/Vol] 10.3 g/dL Low 12.0-15.0 [facility] Comment on above: Performed By: #### L 100.0100, L500.4050 ####[facility] [address] [place], [address] IG% 0.300 Normal 0.0-0.9 [facility] Comment on above: Result Comment: IG% - Immature Granulocytes (promyelocytes, myelocytes andmetamyelocytes) > 1% indicates that a LEFT SHIFT is Present. Performed By: #### L 100.0100, L500.4050 ####[facility] [address] [place], [address] Lymphocytes/100 WBC (Bld) 23.0 % Normal 19-41 [facility] Comment on above: Performed By: #### L 100.0100, L500.4050 ####[facility] [address] [place], [address] MCH (RBC) [Entitic mass] 35.8 pg High 27.0-32.0 [facility] Comment on above: Performed By: #### L 100.0100, L500.4050 ####[facility] [address] [place], [address] MCHC (RBC) [Mass/Vol] 33.7 g/dL Normal 32-36 [facility] [place] Comment on above: Performed By: #### L 100.0100, L500.4050 ####[facility] [address] [place], [address] MCV (RBC) [Entitic vol] 106.3 fL High 81-99 [facility] Comment on above: Performed By: #### L 100.0100, L500.4050 ####[facility] [address] [place], [address] Monocytes/100 WBC (Bld) 15.4 % High 0-10 [facility] Comment on above: Performed By: #### L 100.0100, L500.4050 ####[facility] [address] [place], [address] Neutrophils/100 WBC (Bld) 58.1 % Normal 47-70 [facility] Comment on above: Performed By: #### L 100.0100, L500.4050 ####[facility] [address] [place], [address] Nucleated RBC (Bld) [#/Vol] 0 10*3/uL Normal 0-5 [facility] Comment on above: Performed By: #### L 100.0100, L500.4050 ####[facility] [address] [place], [address] Platelet mean volume (Bld) [Entitic vol] 10.3 fL Normal 6.2-12.0 [facility] Comment on above: Performed By: #### L 100.0100, L500.4050 ####[facility] [address] [place], [address] Platelets (Bld) [#/Vol] 376 10*3/uL Normal 150-450 [facility] Comment on above: Performed By: #### L 100.0100, L500.4050 ####[facility] [address] [place], [address] RBC (Bld) [#/Vol] 2.88 10*6/uL Low 4.2-5.4 [facility] Comment on above: Performed By: #### L 100.0100, L500.4050 ####[facility] [address] [place], [address] RDW SD 49.9 fl High 35.1-43.9 [facility] Comment on above: Performed By: #### L 100.0100, L500.4050 ####[facility] [address] [place], [address] WBC (Bld) [#/Vol] 5.9 10*3/uL Normal 4.4-11.0 [facility] Comment on above: Performed By: #### L 100.0100, L500.4050 ####[facility] [address] [place], [address] Carbon dioxide, total [Moles /volume] in Central venous bloodOrdered By: Canelo Myers on 05-04-2025 CO2 [Moles/Vol] 27.3 mmol/L 21.0-32.0 [facility] Chloride assayOrdered By: Henrry Myers on 05-04-2025 Chloride [Moles/Vol] 96 mmol/L Low 98-108 [facility] Comprehensive Metabolic Prof ilon 05-04-2025 Albumin [Mass/Vol] 3.4 g/dL Low 3.5-5.0 [facility] Comment on above: Performed By: #### L 100.0100, L500.4050 ####[facility] [address] [place], [address] Albumin/Globulin [Mass ratio] 1.1 {ratio} Normal 0.9-2.4 [facility] Comment on above: Performed By: #### L 100.0100, L500.4050 ####[facility] [address] [place], [address] ALK PHOS 441 U/L High 35-104 [facility] Comment on above: Performed By: #### L 100.0100, L500.4050 ####[facility] [address] [place], [address] ALT [Catalytic activity/Vol] 45 U/L High <=34 [facility] Comment on above: Performed By: #### L 100.0100, L500.4050 ####[facility] [address] [place], [address] AST [Catalytic activity/Vol] 51 U/L High <=31 [facility] Comment on above: Performed By: #### L 100.0100, L500.4050 ####[facility] [address] [place], [address] Bilirubin [Mass/Vol] 0.35 mg/dL Normal 0.00-1.30 [facility] Comment on above: Performed By: #### L 100.0100, L500.4050 ####[facility] [address] [place], [address] BUN/CRE 9.6 RATIO Low 10-20 [facility] Comment on above: Performed By: #### L 100.0100, L500.4050 ####[facility] [address] [place], [address] Calcium [Mass/Vol] 9.3 mg/dL Normal 7.6-11.0 [facility] Comment on above: Performed By: #### L 100.0100, L500.4050 ####[facility] [address] [place], [address] Chloride [Moles/Vol] 96 mmol/L Low 98-108 [facility] Comment on above: Performed By: #### L 100.0100, L500.4050 ####[facility] [address] [place], [address] CO2 [Moles/Vol] 27.3 mmol/L Normal 21.0-32.0 [facility] Comment on above: Performed By: #### L 100.0100, L500.4050 ####[facility] [address] [place], [address] Creatinine [Mass/Vol] 0.63 mg/dL Low 0.70-1.20 [facility] [place] Comment on above: Performed By: #### L 100.0100, L500.4050 ####[facility] [address] [place], [address] ECRCL 94.30 ml/min Normal 50-250 [facility] Comment on above: Performed By: #### L 100.0100, L500.4050 ####[facility] [address] [place], [address] GAP 11 Normal 5-15 [facility] Comment on above: Performed By: #### L 100.0100, L500.4050 ####[facility] [address] [place], [address] GFR/1.73 sq M.predicted among non-blacks MDRD (S/P/Bld) [Vol rate/Area] 109 mL/min/{1.73_m2} Normal >60 [facility] Comment on above: Result Comment: mL/m in/1.73m2 CKD-EPI Creatinine Equation (2020) Performed By: #### L 100.0100, L500.4050 ####[facility] [address] [place], [address] Globulin (S) [Mass/Vol] 2.9 g/dL Normal 2.2-4.2 [facility] Comment on above: Performed By: #### L 100.0100, L500.4050 ####[facility] [address] [place], [address] Glucose [Mass/Vol] 171 mg/dL High 70-99 [facility] Comment on above: Performed By: #### L 100.0100, L500.4050 ####[facility] [address] [place], [address] Potassium [Moles/Vol] 4.7 mmol/L Normal 3.3-5.1 [facility] [place] Comment on above: Performed By: #### L 100.0100, L500.4050 ####[facility] [address] [place], [address] Sodium [Moles/Vol] 134 mmol/L Normal 133-145 [facility] Comment on above: Performed By: #### L 100.0100, L500.4050 ####[facility] [address] [place], [address] T PROT 6.3 g/dL Normal 5.9-8.4 [facility] Comment on above: Performed By: #### L 100.0100, L500.4050 ####[facility] [address] [place], [address] Urea nitrogen [Mass/Vol] 6 mg/dL Normal 4-19 [facility] Comment on above: Performed By: #### L 100.0100, L500.4050 ####[facility] [address] [place], [address] Eosinophil percentageOrdered By: Canelo Myers on 05-04-2025 Eosinophils/100 WBC (Bld) 2.7 % 0-5 [facility] Erythrocyte distribution wid th ratioOrdered By: Canelo Myers on 05-04-2025 Erythrocyte distribution width (RBC) [Ratio] 12.8 % 11.6-14.6 [facility] Erythrocyte distribution wid th standard deviationOrdered By: Canelo Myers on 05-04-2025 Erythrocyte distribution width (RBC) [Ratio] 49.9 fl High 35.1-43.9 [facility] Glomerular filtration rate ( GFR) estimation/1.73 sq m using serum, plasma, or whole bOrdered By: Canelo Myers on 05-04-2025 GFR/1.73 sq M.predicted among non-blacks MDRD (S/P/Bld) [Vol rate/Area] 109 mL/min/{1.73_m2} >60 [facility] Comment on above: mL/min/1.73m2 CKD-EP I Creatinine Equation (2020) Hematocrit Auto (Bld) [Volum e fraction]Ordered By: Canelo Myers on 05-04-2025 Hematocrit (Bld) [Volume fraction] 30.6 % Low 37-47 [facility] Hemoglobin measurementOrdere d By: Canelo Myers on 05-04-2025 Hemoglobin (Bld) [Mass/Vol] 10.3 g/dL Low 12.0-15.0 [facility] Immature granulocytes/100 WB C Auto (Bld)Ordered By: Canelo Myers on 05-04-2025 Immature granulocytes/100 WBC (Bld) 0.300 % 0.0-0.9 [facility] Comment on above: IG% - Immature Granu locytes (promyelocytes, myelocytes and metamyelocytes) > 1% indicates that a LEFT SHIFT is Present. Laboratory - Chemistry and C hemistry - challengeOrdered By: Canelo Myers on 05-04-2025 AST [Catalytic activity/Vol] 51 U/L High <32 [facility] MCV (mean corpuscular volume ) determinationOrdered By: Canelo Myers on 05-04-2025 MCV (RBC) [Entitic vol] 106.3 fL High 81-99 [facility] Mean corpuscular hemoglobin (MCH) determinationOrdered By: Canelo Myers on 05-04-2025 MCH (RBC) [Entitic mass] 35.8 pg High 27.0-32.0 [facility] Mean corpuscular hemoglobin concentration (MCHC) determinationOrdered By: Canelo Myers on 05-04-2025 MCHC (RBC) [Mass/Vol] 33.7 g/dL 32-36 [facility] Mean platelet volume determi nationOrdered By: Canelo Myers on 05-04-2025 Platelet mean volume (Bld) [Entitic vol] 10.3 fL 6.2-12.0 [facility] Monocyte percentageOrdered B y: Canelo Myers on 05-04-2025 Monocytes/100 WBC (Bld) 15.4 % High 0-10 [facility] Neutrophil percentageOrdered By: Canelo Myers on 05-04-2025 Neutrophils/100 WBC (Bld) 58.1 % 47-70 [facility] No Panel InformationOrdered By: Canelo Myers on 05-04-2025 51 U/L High <32 [facility] Nucleated red blood cell per centageOrdered By: Canelo Myers on 05-04-2025 Nucleated RBC/100 WBC (Bld) [Ratio] 0 % 0-5 [facility] Platelet countOrdered By: Henrry Myers on 05-04-2025 Platelets (Bld) [#/Vol] 376 10*3/uL 150-450 [facility] Potassium measurement (mass/ volume)Ordered By: Canelo Myers on 05-04-2025 Potassium (Unsp spec) [Mass/Vol] 4.7 mmol/L 3.3-5.1 [facility] RBC Auto (Bld) [#/Vol]Ordere d By: Canelo Myers on 05-04-2025 RBC (Bld) [#/Vol] 2.88 10*6/uL Low 4.2-5.4 [facility] Serum creatinine measurement (mass/volume)Ordered By: Canelo Myers on 05-04-2025 Creatinine [Mass/Vol] 0.63 mg/dL Low 0.70-1.20 [facility] Serum globulin measurementOr dered By: Canelo Myers on 05-04-2025 Globulin (S) [Mass/Vol] 2.9 g/dL 2.2-4.2 [facility] Serum glucose measurement (m ass/volume)Ordered By: Canelo Myers on 05-04-2025 Glucose [Mass/Vol] 171 mg/dL High 70-99 [facility] Serum or plasma alanine wilkerson otransferase (ALT) measurementOrdered By: Canelo Myers on 05-04-2025 ALT [Catalytic activity/Vol] 45 U/L High <35 [facility] Serum or plasma albumin alphonso urement (mass/volume)Ordered By: Canelo Myers on 05-04-2025 Albumin [Mass/Vol] 3.4 g/dL Low 3.5-5.0 [facility] Serum or plasma albumin/glob ulin mass ratioOrdered By: Canelo Myers on 05-04-2025 Albumin/Globulin [Mass ratio] 1.1 {ratio} 0.9-2.4 [facility] Serum or plasma alkaline trinity sphatase measurementOrdered By: Canelo Myers on 05-04-2025 ALP [Catalytic activity/Vol] 441 U/L High 35-104 [facility] Serum or plasma calcium alphonso urement (mass/volume)Ordered By: Canelo Myers on 05-04-2025 Calcium [Mass/Vol] 9.3 mg/dL 7.6-11.0 [facility] Serum or plasma urea nitroge n measurement (mass/volume)Ordered By: Canelo Myers on 05-04-2025 Urea nitrogen [Mass/Vol] 6 mg/dL 4-19 [facility] Sodium levelOrdered By: Ganesh Myers on 05-04-2025 Sodium [Moles/Vol] 134 mmol/L 133-145 [facility] Total proteinOrdered By: Guido Myers on 05-04-2025 Protein [Mass/Vol] 6.3 g/dL 5.9-8.4 [facility] White blood cell (WBC) count Ordered By: Canelo Myers on 05-04-2025 WBC (Bld) [#/Vol] 5.9 10*3/uL 4.4-11.0 [facility] Bedside Glucoseon 05-03-2025 FINGERSTICK GLU 230 mg/dL High [address] [facility] Comment on above: Result Comment: CHAUNCEY GEMENT OF PATIENT CARE PER NURSING PROTOCOL Performed By: #### L 501.080 ####[facility] [address] [place], [address] FINGERSTICK GLU 237 mg/dL High [address] [place] [address] Comment on above: Result Comment: CHAUNCEY GEMENT OF PATIENT CARE PER NURSING PROTOCOL Performed By: #### L 501.080 ####[facility] [address] [place], [address] FINGERSTICK GLU 220 mg/dL High [address] [place] [address] Comment on above: Result Comment: CHAUNCEY GEMENT OF PATIENT CARE PER NURSING PROTOCOL Performed By: #### L 501.080 ####[facility] [address] [place], [address] CBC W/Diff, Automatedon 06-0 5-5 Absolute Lymph 1.14 X10 3/uL Normal 0.83-4.51 [facility] Comment on above: Performed By: #### L 100.0100, L500.4050 ####[facility] [address] [place], [address] Absolute Neut 3.5 X10 3/uL Normal 2.0-7.7 [facility] Comment on above: Performed By: #### L 100.0100, L500.4050 ####[facility] [address] [place], [address] Basophils/100 WBC (Bld) 0.7 % Normal 0-1 [facility] Comment on above: Performed By: #### L 100.0100, L500.4050 ####[facility] [address] [place], [address] Eosinophils/100 WBC (Bld) 3.1 % Normal 0-5 [facility] Comment on above: Performed By: #### L 100.0100, L500.4050 ####[facility] [address] [place], [address] Erythrocyte distribution width (RBC) [Ratio] 12.5 % Normal 11.6-14.6 [facility] Comment on above: Performed By: #### L 100.0100, L500.4050 ####[facility] [address] [place], [address] Hematocrit (Bld) [Volume fraction] 31.0 % Low 37-47 [facility] Comment on above: Performed By: #### L 100.0100, L500.4050 ####[facility] [address] [place], [address] Hemoglobin (Bld) [Mass/Vol] 10.4 g/dL Low 12.0-15.0 [facility] Comment on above: Performed By: #### L 100.0100, L500.4050 ####[facility] [address] [place], [address] IG% 0.300 Normal 0.0-0.9 [facility] Comment on above: Result Comment: IG% - Immature Granulocytes (promyelocytes, myelocytes andmetamyelocytes) > 1% indicates that a LEFT SHIFT is Present. Performed By: #### L 100.0100, L500.4050 ####[facility] [address] [place], [address] Lymphocytes/100 WBC (Bld) 19.7 % Normal 19-41 [facility] Comment on above: Performed By: #### L 100.0100, L500.4050 ####[facility] [address] [place], [address] MCH (RBC) [Entitic mass] 35.6 pg High 27.0-32.0 [facility] Comment on above: Performed By: #### L 100.0100, L500.4050 ####[facility] [address] [place], [address] MCHC (RBC) [Mass/Vol] 33.5 g/dL Normal 32-36 [facility] [place] Comment on above: Performed By: #### L 100.0100, L500.4050 ####[facility] [address] [place], [address] MCV (RBC) [Entitic vol] 106.2 fL High 81-99 [facility] Comment on above: Performed By: #### L 100.0100, L500.4050 ####[facility] [address] [place], [address] Monocytes/100 WBC (Bld) 15.1 % High 0-10 [facility] Comment on above: Performed By: #### L 100.0100, L500.4050 ####[facility] [address] [place], [address] Neutrophils/100 WBC (Bld) 61.1 % Normal 47-70 [facility] Comment on above: Performed By: #### L 100.0100, L500.4050 ####[facility] [address] [place], [address] Nucleated RBC (Bld) [#/Vol] 0 10*3/uL Normal 0-5 [facility] Comment on above: Performed By: #### L 100.0100, L500.4050 ####[facility] [address] [place], [address] Platelet mean volume (Bld) [Entitic vol] 10.2 fL Normal 6.2-12.0 [facility] Comment on above: Performed By: #### L 100.0100, L500.4050 ####[facility] [address] [place], [address] Platelets (Bld) [#/Vol] 297 10*3/uL Normal 150-450 [facility] Comment on above: Performed By: #### L 100.0100, L500.4050 ####[facility] [address] [place], [address] RBC (Bld) [#/Vol] 2.92 10*6/uL Low 4.2-5.4 [facility] Comment on above: Performed By: #### L 100.0100, L500.4050 ####[facility] [address] [place], [address] RDW SD 49.1 fl High 35.1-43.9 [facility] Comment on above: Performed By: #### L 100.0100, L500.4050 ####[facility] [address] [place], [address] WBC (Bld) [#/Vol] 5.8 10*3/uL Normal 4.4-11.0 [facility] Comment on above: Performed By: #### L 100.0100, L500.4050 ####[facility] [address] [place], [address] Comprehensive Metabolic Prof ilon 05-03-2025 Albumin [Mass/Vol] 3.1 g/dL Low 3.5-5.0 [facility] Comment on above: Performed By: #### L 100.0100, L500.4050 ####[facility] [address] [place], [address] Albumin/Globulin [Mass ratio] 1.1 {ratio} Normal 0.9-2.4 [facility] Comment on above: Performed By: #### L 100.0100, L500.4050 ####[facility] [address] [place], [address] ALK PHOS 311 U/L High 35-104 [facility] Comment on above: Performed By: #### L 100.0100, L500.4050 ####[facility] [address] [place], [address] ALT [Catalytic activity/Vol] 38 U/L High <=34 [facility] Comment on above: Performed By: #### L 100.0100, L500.4050 ####[facility] [address] [place], [address] AST [Catalytic activity/Vol] 48 U/L High <=31 [facility] Comment on above: Performed By: #### L 100.0100, L500.4050 ####[facility] [address] [place], [address] Bilirubin [Mass/Vol] 0.32 mg/dL Normal 0.00-1.30 [facility] Comment on above: Performed By: #### L 100.0100, L500.4050 ####[facility] [address] [place], [address] BUN/CRE 12.9 RATIO Normal 10-20 [facility] Comment on above: Performed By: #### L 100.0100, L500.4050 ####[facility] [address] [place], [address] Calcium [Mass/Vol] 8.5 mg/dL Normal 7.6-11.0 [facility] Comment on above: Performed By: #### L 100.0100, L500.4050 ####[facility] [address] [place], [address] Chloride [Moles/Vol] 97 mmol/L Low 98-108 [facility] Comment on above: Performed By: #### L 100.0100, L500.4050 ####[facility] [address] [place], [address] CO2 [Moles/Vol] 28.2 mmol/L Normal 21.0-32.0 [facility] Comment on above: Performed By: #### L 100.0100, L500.4050 ####[facility] [address] [place], [address] Creatinine [Mass/Vol] 0.58 mg/dL Low 0.70-1.20 [facility] Comment on above: Performed By: #### L 100.0100, L500.4050 ####[facility] [address] [place], [address] ECRCL 102.43 ml/min Normal 50-250 [facility] Comment on above: Performed By: #### L 100.0100, L500.4050 ####[facility] [address] [place], [address] GAP 9 Normal 5-15 [facility] Comment on above: Performed By: #### L 100.0100, L500.4050 ####[facility] [address] [place], [address] GFR/1.73 sq M.predicted among non-blacks MDRD (S/P/Bld) [Vol rate/Area] 112 mL/min/{1.73_m2} Normal >60 [facility] Comment on above: Result Comment: mL/m in/1.73m2 CKD-EPI Creatinine Equation (2020) Performed By: #### L 100.0100, L500.4050 ####[facility] [address] [place], [address] Globulin (S) [Mass/Vol] 2.8 g/dL Normal 2.2-4.2 [facility] Comment on above: Performed By: #### L 100.0100, L500.4050 ####[facility] [address] [place], [address] Glucose [Mass/Vol] 227 mg/dL High 70-99 [facility] Comment on above: Performed By: #### L 100.0100, L500.4050 ####[facility] [address] [place], [address] Potassium [Moles/Vol] 4.8 mmol/L Normal 3.3-5.1 [facility] Comment on above: Performed By: #### L 100.0100, L500.4050 ####[facility] [address] [place], [address] Sodium [Moles/Vol] 135 mmol/L Normal 133-145 [facility] Comment on above: Performed By: #### L 100.0100, L500.4050 ####[facility] [address] [place], [address] T PROT 5.9 g/dL Normal 5.9-8.4 [facility] Comment on above: Performed By: #### L 100.0100, L500.4050 ####[facility] [address] [place], [address] Urea nitrogen [Mass/Vol] 7 mg/dL Normal 4-19 [facility] Comment on above: Performed By: #### L 100.0100, L500.4050 ####[facility] [address] [place], [address] Bedside Glucoseon 05-02-2025 FINGERSTICK GLU 288 mg/dL High 74-106 [facility] Comment on above: Result Comment: CHAUNCEY GEMENT OF PATIENT CARE PER NURSING PROTOCOL Performed By: #### L 501.080 ####[facility] [address] [place], [place], [address] FINGERSTICK GLU 198 mg/dL High 74-106 [facility] Comment on above: Result Comment: CHAUNCEY GEMENT OF PATIENT CARE PER NURSING PROTOCOL Performed By: #### L 501.080 ####[facility] [address] [place], [address] FINGERSTICK GLU 196 mg/dL High 74-106 [facility] Comment on above: Result Comment: CHAUNCEY GEMENT OF PATIENT CARE PER NURSING PROTOCOL Performed By: #### L 501.080 ####[facility] [address] [place], [address] CBC W/Diff, Automatedon 06-0 Absolute Lymph 1.17 X10 3/uL Normal 0.83-4.51 [facility] Comment on above: Performed By: #### L 501.2300, L501.5200, L500.4050, L100.0100 ####[facility] [address] [place], [address] Absolute Neut 3.0 X10 3/uL Normal 2.0-7.7 [facility] Comment on above: Performed By: #### L 501.2300, L501.5200, L500.4050, L100.0100 ####[facility] [address] [place], [address] Basophils/100 WBC (Bld) 0.6 % Normal 0-1 [facility] Comment on above: Performed By: #### L 501.2300, L501.5200, L500.4050, L100.0100 ####[facility] [address] [place], [address] Eosinophils/100 WBC (Bld) 3.3 % Normal 0-5 [facility] Comment on above: Performed By: #### L 501.2300, L501.5200, L500.4050, L100.0100 ####[facility] [address] [place], [address] Erythrocyte distribution width (RBC) [Ratio] 12.5 % Normal 11.6-14.6 [facility] Comment on above: Performed By: #### L 501.2300, L501.5200, L500.4050, L100.0100 ####[facility] [address] [place], [address] Hematocrit (Bld) [Volume fraction] 30.1 % Low 37-47 [facility] Comment on above: Performed By: #### L 501.2300, L501.5200, L500.4050, L100.0100 ####[facility] [address] [place], [address] Hemoglobin (Bld) [Mass/Vol] 10.4 g/dL Low 12.0-15.0 [facility] Comment on above: Performed By: #### L 501.2300, L501.5200, L500.4050, L100.0100 ####[facility] [address] [place], [address] IG% 0.600 Normal 0.0-0.9 [facility] Comment on above: Result Comment: IG% - Immature Granulocytes (promyelocytes, myelocytes andmetamyelocytes) > 1% indicates that a LEFT SHIFT is Present. Performed By: #### L 501.2300, L501.5200, L500.4050, L100.0100 ####[facility] [address] [place], [address] Lymphocytes/100 WBC (Bld) 22.5 % Normal 19-41 [facility] Comment on above: Performed By: #### L 501.2300, L501.5200, L500.4050, L100.0100 ####[facility] [address] [place], [address] MCH (RBC) [Entitic mass] 36.9 pg High 27.0-32.0 [facility] Comment on above: Performed By: #### L 501.2300, L501.5200, L500.4050, L100.0100 ####[facility] [address] [place], [address] MCHC (RBC) [Mass/Vol] 34.6 g/dL Normal 32-36 [facility] Comment on above: Performed By: #### L 501.2300, L501.5200, L500.4050, L100.0100 ####[facility] [address] [place], [address] MCV (RBC) [Entitic vol] 106.7 fL High 81-99 [facility] Comment on above: Performed By: #### L 501.2300, L501.5200, L500.4050, L100.0100 ####[facility] [address] [place], [address] Monocytes/100 WBC (Bld) 15.8 % High 0-10 [facility] Comment on above: Performed By: #### L 501.2300, L501.5200, L500.4050, L100.0100 ####[facility] [address] [place], [address] Neutrophils/100 WBC (Bld) 57.2 % Normal 47-70 [facility] Comment on above: Performed By: #### L 501.2300, L501.5200, L500.4050, L100.0100 ####[facility] [address] [place], [address] Nucleated RBC (Bld) [#/Vol] 0 10*3/uL Normal 0-5 [facility] Comment on above: Performed By: #### L 501.2300, L501.5200, L500.4050, L100.0100 ####[facility] [address] [place], [address] Platelet mean volume (Bld) [Entitic vol] 10.3 fL Normal 6.2-12.0 [facility] Comment on above: Performed By: #### L 501.2300, L501.5200, L500.4050, L100.0100 ####[facility] [address] [place], [address] Platelets (Bld) [#/Vol] 247 10*3/uL Normal 150-450 [facility] Comment on above: Performed By: #### L 501.2300, L501.5200, L500.4050, L100.0100 ####[facility] [address] [place], [address] RBC (Bld) [#/Vol] 2.82 10*6/uL Low 4.2-5.4 [facility] Comment on above: Performed By: #### L 501.2300, L501.5200, L500.4050, L100.0100 ####[facility] [address] [place], [address] RDW SD 49.4 fl High 35.1-43.9 [facility] Comment on above: Performed By: #### L 501.2300, L501.5200, L500.4050, L100.0100 ####[facility] [address] [place], [address] WBC (Bld) [#/Vol] 5.2 10*3/uL Normal 4.4-11.0 [facility] Comment on above: Performed By: #### L 501.2300, L501.5200, L500.4050, L100.0100 ####[facility] [address] [place], [address] Comprehensive Metabolic Prof [facility] 05-02-2025 Albumin [Mass/Vol] 3.1 g/dL Low 3.5-5.0 [facility] Comment on above: Performed By: #### L 501.2300, L501.5200, L500.4050, L100.0100 ####[facility] [address] [place], [address] Albumin/Globulin [Mass ratio] 1.2 {ratio} Normal 0.9-2.4 [facility] Comment on above: Performed By: #### L 501.2300, L501.5200, L500.4050, L100.0100 ####[facility] [address] [place], [address] ALK PHOS 230 U/L High 35-104 [facility] Comment on above: Performed By: #### L 501.2300, L501.5200, L500.4050, L100.0100 ####[facility] [address] [place], [address] ALT [Catalytic activity/Vol] 33 U/L Normal <=34 [facility] Comment on above: Performed By: #### L 501.2300, L501.5200, L500.4050, L100.0100 ####[facility] [address] [place], [address] AST [Catalytic activity/Vol] 40 U/L High <=31 [facility] Comment on above: Performed By: #### L 501.2300, L501.5200, L500.4050, L100.0100 ####[facility] [address] [place], [address] Bilirubin [Mass/Vol] 0.49 mg/dL Normal 0.00-1.30 [facility] Comment on above: Performed By: #### L 501.2300, L501.5200, L500.4050, L100.0100 ####[facility] [address] [place], [address] BUN/CRE 13.6 RATIO Normal 10-20 [facility] Comment on above: Performed By: #### L 501.2300, L501.5200, L500.4050, L100.0100 ####[facility] [address] [place], [address] Calcium [Mass/Vol] 8.7 mg/dL Normal 7.6-11.0 [facility] Comment on above: Performed By: #### L 501.2300, L501.5200, L500.4050, L100.0100 ####[facility] [address] [place], [address] Chloride [Moles/Vol] 95 mmol/L Low 98-108 [facility] Comment on above: Performed By: #### L 501.2300, L501.5200, L500.4050, L100.0100 ####[facility] [address] [place], [address] CO2 [Moles/Vol] 28.5 mmol/L Normal 21.0-32.0 [facility] Comment on above: Performed By: #### L 501.2300, L501.5200, L500.4050, L100.0100 ####[facility] [address] [place], [address] Creatinine [Mass/Vol] 0.52 mg/dL Low 0.70-1.20 [facility] Comment on above: Performed By: #### L 501.2300, L501.5200, L500.4050, L100.0100 ####[facility] [address] [place], [address] ECRCL 114.25 ml/min Normal 50-250 [facility] Comment on above: Performed By: #### L 501.2300, L501.5200, L500.4050, L100.0100 ####[facility] [address] [place], [address] GAP 11 Normal 5-15 [facility] Comment on above: Performed By: #### L 501.2300, L501.5200, L500.4050, L100.0100 ####[facility] [address] [place], [address] GFR/1.73 sq M.predicted among non-blacks MDRD (S/P/Bld) [Vol rate/Area] 115 mL/min/{1.73_m2} Normal >60 [facility] Comment on above: Result Comment: mL/m in/1.73m2 CKD-EPI Creatinine Equation (2020) Performed By: #### L 501.2300, L501.5200, L500.4050, L100.0100 ####[facility] [address] [place], [address] Globulin (S) [Mass/Vol] 2.7 g/dL Normal 2.2-4.2 [facility] Comment on above: Performed By: #### L 501.2300, L501.5200, L500.4050, L100.0100 ####[facility] [address] [place], [address] Glucose [Mass/Vol] 197 mg/dL High 70-99 [facility] Comment on above: Performed By: #### L 501.2300, L501.5200, L500.4050, L100.0100 ####[facility] [address] [place], [address] Potassium [Moles/Vol] 4.2 mmol/L Normal 3.3-5.1 [facility] Comment on above: Performed By: #### L 501.2300, L501.5200, L500.4050, L100.0100 ####[facility] [address] [place], [address] Sodium [Moles/Vol] 134 mmol/L Normal 133-145 [facility] Comment on above: Performed By: #### L 501.2300, L501.5200, L500.4050, L100.0100 ####[facility] [address] [place], [address] T PROT 5.8 g/dL Low 5.9-8.4 [facility] Comment on above: Performed By: #### L 501.2300, L501.5200, L500.4050, L100.0100 ####[facility] [address] [place], [address] Urea nitrogen [Mass/Vol] 7 mg/dL Normal 4-19 [facility] Comment on above: Performed By: #### L 501.2300, L501.5200, L500.4050, L100.0100 ####[facility] [address] [place], [address] Magnesiumon 05-02-2025 Magnesium [Mass/Vol] 1.2 mg/dL Low 1.5-2.2 [facility] Comment on above: Performed By: #### L 501.2300, L501.5200, L500.4050, L100.0100 ####[facility] [address] [place], [address] Magnesium measurement (mass/ volume)Ordered By: Canelo Myers on 05-02-2025 Magnesium (Unsp spec) [Mass/Vol] 1.2 mg/dL Low 1.5-2.2 [facility] Phosphoruson 05-02-2025 Phosphate [Mass/Vol] 5.0 mg/dL High 2.7-4.5 [facility] Comment on above: Performed By: #### L 501.2300, L501.5200, L500.4050, L100.0100 ####[facility] [address] [place], [address] Bedside Glucoseon 05-01-2025 FINGERSTICK GLU 234 mg/dL High 74-106 [facility] Comment on above: Result Comment: CHAUNCEY GEMENT OF PATIENT CARE PER NURSING PROTOCOL Performed By: #### L 501.080 ####[facility] [address] [place], [address] FINGERSTICK GLU 316 mg/dL High -106 [facility] Comment on above: Result Comment: CHAUNCEY GEMENT OF PATIENT CARE PER NURSING PROTOCOL Performed By: #### L 501.080 ####[facility] [address] [place], [address] FINGERSTICK GLU 168 mg/dL High 74-106 [facility] Comment on above: Result Comment: CHAUNCEY GEMENT OF PATIENT CARE PER NURSING PROTOCOL Performed By: #### L 501.080 ####[facility] [address] [place], [address] Bilirubin directOrdered By: Canelo Myers on 05-01-2025 Bilirubin.direct [Mass/Vol] 0.32 mg/dL High 0.00-0.30 [facility] Liver Profileon 05-01-2025 Albumin [Mass/Vol] 3.0 g/dL Low 3.5-5.0 [facility] Comment on above: Performed By: #### L 500.3400 ####[facility] [address] [place], [address] ALK PHOS 166 U/L High 35-104 [facility] Comment on above: Performed By: #### L 500.3400 ####[facility] [address] [place], [address] ALT [Catalytic activity/Vol] 39 U/L High <=34 [facility] Comment on above: Performed By: #### L 500.3400 ####[facility] [address] [place], [address] AST [Catalytic activity/Vol] 73 U/L High <=31 [facility] Comment on above: Performed By: #### L 500.3400 ####[facility] [address] [place], [address] Bilirubin [Mass/Vol] 0.59 mg/dL Normal 0.00-1.30 [facility] Comment on above: Performed By: #### L 500.3400 ####[facility] [address] [place], [address] Bilirubin.direct [Mass/Vol] 0.32 mg/dL High 0.00-0.30 [facility] Comment on above: Performed By: #### L 500.3400 ####[facility] [address] [place], [address] Globulin (S) [Mass/Vol] 2.7 g/dL Normal 2.2-4.2 [facility] Comment on above: Performed By: #### L 500.3400 ####[facility] [address] [place], [address] T PROT 5.7 g/dL Low 5.9-8.4 [facility] Comment on above: Performed By: #### L 500.3400 ####[facility] [address] [place], [address] Phosphoruson 05-01-2025 Phosphate [Mass/Vol] 5.1 mg/dL High 2.7-4.5 [facility] Comment on above: Performed By: #### L 501.2300 ####[facility] [address] [place], [address] Basic Metabolic Profile (BMP )on 04-30-2025 BUN/CRE UNABLE TO CALCULATE Low 10-20 [facility] Comment on above: Performed By: #### L 500.3400, L500.2500, L100.0100 ####[facility] [address] [place], [address] Calcium [Mass/Vol] 8.5 mg/dL Normal 7.6-11.0 [facility] Comment on above: Performed By: #### L 500.3400, L500.2500, L100.0100 ####[facility] [address] [place], [address] Chloride [Moles/Vol] 98 mmol/L Normal 98-108 [facility] Comment on above: Performed By: #### L 500.3400, L500.2500, L100.0100 ####[facility] [address] [place], [address] CO2 [Moles/Vol] 28.1 mmol/L Normal 21.0-32.0 [facility] Comment on above: Performed By: #### L 500.3400, L500.2500, L100.0100 ####[facility] [address] [place], [address] Creatinine [Mass/Vol] 0.41 mg/dL Low 0.70-1.20 [facility] Comment on above: Performed By: #### L 500.3400, L500.2500, L100.0100 ####[facility] [address] [place], [address] ECRCL 144.90 ml/min Normal 50-250 [facility] Comment on above: Performed By: #### L 500.3400, L500.2500, L100.0100 ####[facility] [address] [place], [address] GAP 13 Normal 5-15 [facility] Comment on above: Performed By: #### L 500.3400, L500.2500, L100.0100 ####[facility] [address] [place], [address] GFR/1.73 sq M.predicted among non-blacks MDRD (S/P/Bld) [Vol rate/Area] 121 mL/min/{1.73_m2} Normal >60 [facility] Comment on above: Result Comment: mL/m in/1.73m2 CKD-EPI Creatinine Equation (2020) Performed By: #### L 500.3400, L500.2500, L100.0100 ####[facility] [address] [place], [address] Glucose [Mass/Vol] 124 mg/dL High 70-99 [facility] Comment on above: Performed By: #### L 500.3400, L500.2500, L100.0100 ####[facility] [address] [place], [address] Potassium [Moles/Vol] 2.7 mmol/L Invalid Interpretation Code 3.3-5.1 [facility] Comment on above: Result Comment: Crit ical Result(s) Called at: by:??Results read back bysame. Performed By: #### L 500.3400, L500.2500, L100.0100 ####[facility] [address] [place], [address] Sodium [Moles/Vol] 139 mmol/L Normal 133-145 [facility] Comment on above: Performed By: #### L 500.3400, L500.2500, L100.0100 ####[facility] [address] [place], [address] Urea nitrogen [Mass/Vol] mg/dL Low 4-19 [facility] Comment on above: Performed By: #### L 500.3400, L500.2500, L100.0100 ####[facility] [address] [place], [address] Bedside Glucoseon 04-30-2025 FINGERSTICK GLU 147 mg/dL High 74-106 [facility] Comment on above: Result Comment: CHAUNCEY GEMENT OF PATIENT CARE PER NURSING PROTOCOL Performed By: #### L 501.080 ####[facility] [address] [place], [address] FINGERSTICK GLU 230 mg/dL High 74-106 [facility] Comment on above: Result Comment: CHAUNCEY GEMENT OF PATIENT CARE PER NURSING PROTOCOL Performed By: #### L 501.080 ####[facility] [address] [place], [address] FINGERSTICK GLU 149 mg/dL High 74-106 [facility] Comment on above: Result Comment: CHAUNCEY GEMENT OF PATIENT CARE PER NURSING PROTOCOL Performed By: #### L 501.080 ####[facility] [address] [place], [address] CBC W/Diff, Automatedon 06-0 Absolute Lymph 1.39 X10 3/uL Normal 0.83-4.51 [facility] Comment on above: Performed By: #### L 500.3400, L500.2500, L100.0100 ####[facility] [address] [place], [address] Absolute Neut 3.6 X10 3/uL Normal 2.0-7.7 [facility] Comment on above: Performed By: #### L 500.3400, L500.2500, L100.0100 ####[facility] [address] [place], [address] Basophils/100 WBC (Bld) 0.5 % Normal 0-1 [facility] Comment on above: Performed By: #### L 500.3400, L500.2500, L100.0100 ####[facility] [address] [place], [address] Eosinophils/100 WBC (Bld) 2.0 % Normal 0-5 [facility] Comment on above: Performed By: #### L 500.3400, L500.2500, L100.0100 ####[facility] [address] [place], [address] Erythrocyte distribution width (RBC) [Ratio] 12.6 % Normal 11.6-14.6 [facility] Comment on above: Performed By: #### L 500.3400, L500.2500, L100.0100 ####[facility] [address] [place], [address] Hematocrit (Bld) [Volume fraction] 29.7 % Low 37-47 [facility] Comment on above: Performed By: #### L 500.3400, L500.2500, L100.0100 ####[facility] [address] [place], [address] Hemoglobin (Bld) [Mass/Vol] 10.3 g/dL Low 12.0-15.0 [facility] Comment on above: Performed By: #### L 500.3400, L500.2500, L100.0100 ####[facility] [address] [place], [address] IG% 0.500 Normal 0.0-0.9 [facility] Comment on above: Result Comment: IG% - Immature Granulocytes (promyelocytes, myelocytes andmetamyelocytes) > 1% indicates that a LEFT SHIFT is Present. Performed By: #### L 500.3400, L500.2500, L100.0100 ####[facility] [address] [place], [address] Lymphocytes/100 WBC (Bld) 23.4 % Normal 19-41 [facility] Comment on above: Performed By: #### L 500.3400, L500.2500, L100.0100 ####[facility] [address] [place], [address] MCH (RBC) [Entitic mass] 36.7 pg High 27.0-32.0 [facility] Comment on above: Performed By: #### L 500.3400, L500.2500, L100.0100 ####[facility] [address] [place], [address] MCHC (RBC) [Mass/Vol] 34.7 g/dL Normal 32-36 [facility] Comment on above: Performed By: #### L 500.3400, L500.2500, L100.0100 ####[facility] [address] [place], [address] MCV (RBC) [Entitic vol] 105.7 fL High 81-99 [facility] Comment on above: Performed By: #### L 500.3400, L500.2500, L100.0100 ####[facility] [address] [place], [address] Monocytes/100 WBC (Bld) 13.8 % High 0-10 [facility] Comment on above: Performed By: #### L 500.3400, L500.2500, L100.0100 ####[facility] [address] [place], [address] Neutrophils/100 WBC (Bld) 59.8 % Normal 47-70 [facility] Comment on above: Performed By: #### L 500.3400, L500.2500, L100.0100 ####[facility] [address] [place], [address] Nucleated RBC (Bld) [#/Vol] 0 10*3/uL Normal 0-5 [facility] Comment on above: Performed By: #### L 500.3400, L500.2500, L100.0100 ####[facility] [address] [place], [address] Platelet mean volume (Bld) [Entitic vol] 10.4 fL Normal 6.2-12.0 [facility] Comment on above: Performed By: #### L 500.3400, L500.2500, L100.0100 ####[facility] [address] [place], [address] Platelets (Bld) [#/Vol] 145 10*3/uL Low 150-450 [facility] Comment on above: Performed By: #### L 500.3400, L500.2500, L100.0100 ####[facility] [address] [place], [address] RBC (Bld) [#/Vol] 2.81 10*6/uL Low 4.2-5.4 [facility] Comment on above: Performed By: #### L 500.3400, L500.2500, L100.0100 ####[facility] [address] [place], [address] RDW SD 49.7 fl High 35.1-43.9 [facility] Comment on above: Performed By: #### L 500.3400, L500.2500, L100.0100 ####[facility] [address] [place], [place], [address] WBC (Bld) [#/Vol] 6.0 10*3/uL Normal 4.4-11.0 [facility] Comment on above: Performed By: #### L 500.3400, L500.2500, L100.0100 ####[facility] [address] [place], [address] Liver Profileon 04-30-2025 Albumin [Mass/Vol] 3.2 g/dL Low 3.5-5.0 [facility] Comment on above: Performed By: #### L 500.3400, L500.2500, L100.0100 ####[facility] [address] [place], [address] ALK PHOS 98 U/L Normal 35-104 [facility] Comment on above: Performed By: #### L 500.3400, L500.2500, L100.0100 ####[facility] [address] [place], [address] ALT [Catalytic activity/Vol] 32 U/L Normal <=34 [facility] Comment on above: Performed By: #### L 500.3400, L500.2500, L100.0100 ####[facility] [address] [place], [address] AST [Catalytic activity/Vol] 39 U/L High <=31 [facility] Comment on above: Performed By: #### L 500.3400, L500.2500, L100.0100 ####[facility] [address] [place], [address] Bilirubin [Mass/Vol] 0.67 mg/dL Normal 0.00-1.30 [facility] Comment on above: Performed By: #### L 500.3400, L500.2500, L100.0100 ####[facility] [address] [place], [address] Bilirubin.direct [Mass/Vol] 0.41 mg/dL High 0.00-0.30 [facility] Comment on above: Performed By: #### L 500.3400, L500.2500, L100.0100 ####[facility] [address] [place], [address] Globulin (S) [Mass/Vol] 2.6 g/dL Normal 2.2-4.2 [facility] Comment on above: Performed By: #### L 500.3400, L500.2500, L100.0100 ####[facility] [address] [place], [address] T PROT 5.9 g/dL Normal 5.9-8.4 [facility] Comment on above: Performed By: #### L 500.3400, L500.2500, L100.0100 ####[facility] [address] [place], [address] Magnesiumon 04-30-2025 Magnesium [Mass/Vol] 1.5 mg/dL Normal 1.5-2.2 [facility] Comment on above: Performed By: #### L 501.5200 ####[facility] [address] [place], [address] Basic Metabolic Profile (BMP )on 04-29-2025 BUN/CRE UNABLE TO CALCULATE Low 10-20 [facility] Comment on above: Performed By: #### L 500.2500, L500.3400, L501.5200, L100.0100 ####[facility] [address] [place], [address] Calcium [Mass/Vol] 8.2 mg/dL Normal 7.6-11.0 [facility] Comment on above: Performed By: #### L 500.2500, L500.3400, L501.5200, L100.0100 ####[facility] [address] [place], [address] Chloride [Moles/Vol] 103 mmol/L Normal 98-108 [facility] Comment on above: Performed By: #### L 500.2500, L500.3400, L501.5200, L100.0100 ####[facility] [address] [place], [address] CO2 [Moles/Vol] 26.0 mmol/L Normal 21.0-32.0 [facility] Comment on above: Performed By: #### L 500.2500, L500.3400, L501.5200, L100.0100 ####[facility] [address] [place], [address] Creatinine [Mass/Vol] 0.40 mg/dL Low 0.70-1.20 [facility] Comment on above: Performed By: #### L 500.2500, L500.3400, L501.5200, L100.0100 ####[facility] [address] [place], [address] ECRCL 148.53 ml/min Normal 50-250 [facility] Comment on above: Performed By: #### L 500.2500, L500.3400, L501.5200, L100.0100 ####[facility] [address] [place], [address] GAP 11 Normal 5-15 [facility] Comment on above: Performed By: #### L 500.2500, L500.3400, L501.5200, L100.0100 ####[facility] [address] [place], [address] GFR/1.73 sq M.predicted among non-blacks MDRD (S/P/Bld) [Vol rate/Area] 122 mL/min/{1.73_m2} Normal >60 [facility] Comment on above: Result Comment: mL/m in/1.73m2 CKD-EPI Creatinine Equation (2020) Performed By: #### L 500.2500, L500.3400, L501.5200, L100.0100 ####[facility] [address] [place], [address] Glucose [Mass/Vol] 126 mg/dL High 70-99 [facility] Comment on above: Performed By: #### L 500.2500, L500.3400, L501.5200, L100.0100 ####[facility] [address] [place], [address] Potassium [Moles/Vol] 2.8 mmol/L Low 3.3-5.1 [facility] Comment on above: Performed By: #### L 500.2500, L500.3400, L501.5200, L100.0100 ####[facility] [address] [place], [address] Sodium [Moles/Vol] 140 mmol/L Normal 133-145 [facility] Comment on above: Performed By: #### L 500.2500, L500.3400, L501.5200, L100.0100 ####[facility] [address] [place], [address] Urea nitrogen [Mass/Vol] mg/dL Low 4-19 [facility] Comment on above: Performed By: #### L 500.2500, L500.3400, L501.5200, L100.0100 ####[facility] [address] [place], [address] Bedside Glucoseon 04-29-2025 FINGERSTICK GLU 187 mg/dL High 74-106 [facility] Comment on above: Result Comment: CHAUNCEY GEMENT OF PATIENT CARE PER NURSING PROTOCOL Performed By: #### L 501.080 ####[facility] [address] [place], [address] FINGERSTICK GLU 121 mg/dL High 74-106 [facility] Comment on above: Result Comment: CHAUNCEY GEMENT OF PATIENT CARE PER NURSING PROTOCOL Performed By: #### L 501.080 ####[facility] [address] [place], [address] FINGERSTICK GLU 218 mg/dL High 74-106 [facility] Comment on above: Result Comment: CHAUNCEY GEMENT OF PATIENT CARE PER NURSING PROTOCOL Performed By: #### L 501.080 ####[facility] [address] [place], [address] FINGERSTICK GLU 132 mg/dL High 74-106 [facility] Comment on above: Result Comment: CHAUNCEY GEMENT OF PATIENT CARE PER NURSING PROTOCOL Performed By: #### L 501.080 ####[facility] [address] [place], [address] CBC W/Diff, Automatedon 06-0 1-2024 Absolute Lymph 1.02 X10 3/uL Normal 0.83-4.51 [facility] Comment on above: Performed By: #### L 500.2500, L500.3400, L501.5200, L100.0100 ####[facility] [address] [place], [address] Absolute Neut 5.3 X10 3/uL Normal 2.0-7.7 [facility] Comment on above: Performed By: #### L 500.2500, L500.3400, L501.5200, L100.0100 ####[facility] [address] [place], [address] Basophils/100 WBC (Bld) 0.4 % Normal 0-1 [facility] Comment on above: Performed By: #### L 500.2500, L500.3400, L501.5200, L100.0100 ####[facility] [address] [place], [address] Eosinophils/100 WBC (Bld) 1.1 % Normal 0-5 [facility] Comment on above: Performed By: #### L 500.2500, L500.3400, L501.5200, L100.0100 ####[facility] [address] [place], [address] Erythrocyte distribution width (RBC) [Ratio] 12.2 % Normal 11.6-14.6 [facility] Comment on above: Performed By: #### L 500.2500, L500.3400, L501.5200, L100.0100 ####[facility] [address] [place], [address] Hematocrit (Bld) [Volume fraction] 28.7 % Low 37-47 [facility] Comment on above: Performed By: #### L 500.2500, L500.3400, L501.5200, L100.0100 ####[facility] [address] [place], [address] Hemoglobin (Bld) [Mass/Vol] 9.9 g/dL Low 12.0-15.0 [facility] Comment on above: Performed By: #### L 500.2500, L500.3400, L501.5200, L100.0100 ####[facility] [address] [place], [address] IG% 0.600 Normal 0.0-0.9 [facility] Comment on above: Result Comment: IG% - Immature Granulocytes (promyelocytes, myelocytes andmetamyelocytes) > 1% indicates that a LEFT SHIFT is Present. Performed By: #### L 500.2500, L500.3400, L501.5200, L100.0100 ####[facility] [address] [place], [address] Lymphocytes/100 WBC (Bld) 14.1 % Low 19-41 [facility] Comment on above: Performed By: #### L 500.2500, L500.3400, L501.5200, L100.0100 ####[facility] [address] [place], [address] MCH (RBC) [Entitic mass] 36.5 pg High 27.0-32.0 [facility] Comment on above: Performed By: #### L 500.2500, L500.3400, L501.5200, L100.0100 ####[facility] [address] [place], [address] MCHC (RBC) [Mass/Vol] 34.5 g/dL Normal 32-36 [facility] [place] Comment on above: Performed By: #### L 500.2500, L500.3400, L501.5200, L100.0100 ####[facility] [address] [place], [address] MCV (RBC) [Entitic vol] 105.9 fL High 81-99 [facility] Comment on above: Performed By: #### L 500.2500, L500.3400, L501.5200, L100.0100 ####[facility] [address] [place], [address] Monocytes/100 WBC (Bld) 10.9 % High 0-10 [facility] Comment on above: Performed By: #### L 500.2500, L500.3400, L501.5200, L100.0100 ####[facility] [address] [place], [address] Neutrophils/100 WBC (Bld) 72.9 % High 47-70 [facility] Comment on above: Performed By: #### L 500.2500, L500.3400, L501.5200, L100.0100 ####[facility] [address] [place], [address] Nucleated RBC (Bld) [#/Vol] 0 10*3/uL Normal 0-5 [facility] Comment on above: Performed By: #### L 500.2500, L500.3400, L501.5200, L100.0100 ####[facility] [address] [place], [address] Platelet mean volume (Bld) [Entitic vol] 10.5 fL Normal 6.2-12.0 [facility] Comment on above: Performed By: #### L 500.2500, L500.3400, L501.5200, L100.0100 ####[facility] [address] [place], [address] Platelets (Bld) [#/Vol] 110 10*3/uL Low 150-450 [facility] Comment on above: Performed By: #### L 500.2500, L500.3400, L501.5200, L100.0100 ####[facility] [address] [place], [address] RBC (Bld) [#/Vol] 2.71 10*6/uL Low 4.2-5.4 [facility] Comment on above: Performed By: #### L 500.2500, L500.3400, L501.5200, L100.0100 ####[facility] [address] [place], [address] RDW SD 47.6 fl High 35.1-43.9 [facility] Comment on above: Performed By: #### L 500.2500, L500.3400, L501.5200, L100.0100 ####[facility] [address] [place], [address] WBC (Bld) [#/Vol] 7.2 10*3/uL Normal 4.4-11.0 [facility] Comment on above: Performed By: #### L 500.2500, L500.3400, L501.5200, L100.0100 ####[facility] [address] [place], [address] Liver Profileon 04-29-2025 Albumin [Mass/Vol] 3.2 g/dL Low 3.5-5.0 [facility] Comment on above: Performed By: #### L 500.2500, L500.3400, L501.5200, L100.0100 ####[facility] [address] [place], [address] ALK PHOS 108 U/L High 35-104 [facility] Comment on above: Performed By: #### L 500.2500, L500.3400, L501.5200, L100.0100 ####[facility] [address] [place], [address] ALT [Catalytic activity/Vol] 37 U/L High <=34 [facility] Comment on above: Performed By: #### L 500.2500, L500.3400, L501.5200, L100.0100 ####[facility] [address] [place], [address] AST [Catalytic activity/Vol] 56 U/L High <=31 [facility] Comment on above: Performed By: #### L 500.2500, L500.3400, L501.5200, L100.0100 ####[facility] [address] [place], [address] Bilirubin [Mass/Vol] 0.71 mg/dL Normal 0.00-1.30 [facility] Comment on above: Performed By: #### L 500.2500, L500.3400, L501.5200, L100.0100 ####[facility] [address] [place], [address] Bilirubin.direct [Mass/Vol] 0.43 mg/dL High 0.00-0.30 [facility] Comment on above: Performed By: #### L 500.2500, L500.3400, L501.5200, L100.0100 ####[facility] [address] [place], [address] Globulin (S) [Mass/Vol] 2.4 g/dL Normal 2.2-4.2 [facility] Comment on above: Performed By: #### L 500.2500, L500.3400, L501.5200, L100.0100 ####[facility] [address] [place], [address] T PROT 5.6 g/dL Low 5.9-8.4 [facility] Comment on above: Performed By: #### L 500.2500, L500.3400, L501.5200, L100.0100 ####[facility] [address] [place], [address] Magnesiumon 04-29-2025 Magnesium [Mass/Vol] 1.5 mg/dL Normal 1.5-2.2 [facility] Comment on above: Performed By: #### L 500.2500, L500.3400, L501.5200, L100.0100 ####[facility] [address] [place], [address] Phosphoruson 04-29-2025 Phosphate [Mass/Vol] 2.0 mg/dL Low 2.7-4.5 [facility] Comment on above: Performed By: #### L 501.2300 ####[facility] [address] [place], [address] Basic Metabolic Profile (BMP )on 04-28-2025 BUN/CRE 6.9 RATIO Low 10-20 [facility] Comment on above: Performed By: #### L 500.2500, L500.3400, L501.5200, L501.2450 ####[facility] [address] [place], [address] Calcium [Mass/Vol] 8.3 mg/dL Normal 7.6-11.0 [facility] Comment on above: Performed By: #### L 500.2500, L500.3400, L501.5200, L501.2450 ####[facility] [address] [place], [address] Chloride [Moles/Vol] 100 mmol/L Normal 98-108 [facility] Comment on above: Performed By: #### L 500.2500, L500.3400, L501.5200, L501.2450 ####[facility] [address] [place], [address] CO2 [Moles/Vol] 24.9 mmol/L Normal 21.0-32.0 [facility] Comment on above: Performed By: #### L 500.2500, L500.3400, L501.5200, L501.2450 ####[facility] [address] [place], [address] Creatinine [Mass/Vol] 0.50 mg/dL Low 0.70-1.20 [facility] [place] Comment on above: Performed By: #### L 500.2500, L500.3400, L501.5200, L501.2450 ####[facility] [address] [place], [address] ECRCL 118.82 ml/min Normal 50-250 [facility] Comment on above: Performed By: #### L 500.2500, L500.3400, L501.5200, L501.2450 ####[facility] [address] [place], [address] GAP 12 Normal 5-15 [facility] Comment on above: Performed By: #### L 500.2500, L500.3400, L501.5200, L501.2450 ####[facility] [address] [place], [address] GFR/1.73 sq M.predicted among non-blacks MDRD (S/P/Bld) [Vol rate/Area] 115 mL/min/{1.73_m2} Normal >60 [facility] Comment on above: Result Comment: mL/m in/1.73m2 CKD-EPI Creatinine Equation (2020) Performed By: #### L 500.2500, L500.3400, L501.5200, L501.2450 ####[facility] [address] [place], [address] Glucose [Mass/Vol] 103 mg/dL High 70-99 [facility] Comment on above: Performed By: #### L 500.2500, L500.3400, L501.5200, L501.2450 ####[facility] [address] [place], [address] Potassium [Moles/Vol] 3.2 mmol/L Low 3.3-5.1 [facility] Comment on above: Performed By: #### L 500.2500, L500.3400, L501.5200, L501.2450 ####[facility] [address] [place], [address] Sodium [Moles/Vol] 137 mmol/L Normal 133-145 [facility] Comment on above: Performed By: #### L 500.2500, L500.3400, L501.5200, L501.2450 ####[facility] [address] [place], [address] Urea nitrogen [Mass/Vol] 3 mg/dL Low 4-19 [facility] Comment on above: Performed By: #### L 500.2500, L500.3400, L501.5200, L501.2450 ####[facility] [address] [place], [address] Bedside Glucoseon 04-28-2025 FINGERSTICK GLU 140 mg/dL High 74-106 [facility] Comment on above: Result Comment: CHAUNCEY GEMENT OF PATIENT CARE PER NURSING PROTOCOL Performed By: #### L 501.080 ####[facility] [address] [place], [address] FINGERSTICK GLU 181 mg/dL High 74-106 [facility] Comment on above: Result Comment: CHAUNCEY GEMENT OF PATIENT CARE PER NURSING PROTOCOL Performed By: #### L 501.080 ####[facility] [address] [place], [address] FINGERSTICK GLU 104 mg/dL Normal 74-106 [facility] Comment on above: Result Comment: CHAUNCEY GEMENT OF PATIENT CARE PER NURSING PROTOCOL Performed By: #### L 501.080 ####[facility] [address] [place], [address] CBC W/Diff, Automatedon 05-3 Absolute Lymph 0.95 X10 3/uL Normal 0.83-4.51 [facility] Comment on above: Performed By: #### L 501.2300, L100.0100 ####[facility] [address] [place], [address] Absolute Neut 5.9 X10 3/uL Normal 2.0-7.7 [facility] Comment on above: Performed By: #### L 501.2300, L100.0100 ####[facility] [address] [place], [address] Basophils/100 WBC (Bld) 0.3 % Normal 0-1 [facility] Comment on above: Performed By: #### L 501.2300, L100.0100 ####[facility] [address] [place], [address] Eosinophils/100 WBC (Bld) 0.8 % Normal 0-5 [facility] Comment on above: Performed By: #### L 501.2300, L100.0100 ####[facility] [address] [place], [address] Erythrocyte distribution width (RBC) [Ratio] 12.2 % Normal 11.6-14.6 [facility] Comment on above: Performed By: #### L 501.2300, L100.0100 ####[facility] [address] [place], [address] Hematocrit (Bld) [Volume fraction] 34.3 % Low 37-47 [facility] Comment on above: Performed By: #### L 501.2300, L100.0100 ####[facility] [address] [place], [address] Hemoglobin (Bld) [Mass/Vol] 11.6 g/dL Low 12.0-15.0 [facility] Comment on above: Performed By: #### L 501.2300, L100.0100 ####[facility] [address] [place], [address] IG% 0.400 Normal 0.0-0.9 [facility] Comment on above: Result Comment: IG% - Immature Granulocytes (promyelocytes, myelocytes andmetamyelocytes) > 1% indicates that a LEFT SHIFT is Present. Performed By: #### L 501.2300, L100.0100 ####[facility] [address] [place], [address] Lymphocytes/100 WBC (Bld) 12.5 % Low 19-41 [facility] Comment on above: Performed By: #### L 501.2300, L100.0100 ####[facility] [address] [place], [address] MCH (RBC) [Entitic mass] 36.4 pg High 27.0-32.0 [facility] Comment on above: Performed By: #### L 501.2300, L100.0100 ####[facility] [address] [place], [address] MCHC (RBC) [Mass/Vol] 33.8 g/dL Normal 32-36 [facility] Comment on above: Performed By: #### L 501.2300, L100.0100 ####[facility] [address] [place], [address] MCV (RBC) [Entitic vol] 107.5 fL High 81-99 [facility] Comment on above: Performed By: #### L 501.2300, L100.0100 ####[facility] [address] [place], [address] Monocytes/100 WBC (Bld) 8.0 % Normal 0-10 [facility] Comment on above: Performed By: #### L 501.2300, L100.0100 ####[facility] [address] [place], [address] Neutrophils/100 WBC (Bld) 78.0 % High 47-70 [facility] Comment on above: Performed By: #### L 501.2300, L100.0100 ####[facility] [address] [place], [address] Nucleated RBC (Bld) [#/Vol] 0 10*3/uL Normal 0-5 [facility] Comment on above: Performed By: #### L 501.2300, L100.0100 ####[facility] [address] [place], [address] Platelet mean volume (Bld) [Entitic vol] 10.3 fL Normal 6.2-12.0 [facility] Comment on above: Performed By: #### L 501.2300, L100.0100 ####[facility] [address] [place], [address] Platelets (Bld) [#/Vol] 119 10*3/uL Low 150-450 [facility] Comment on above: Performed By: #### L 501.2300, L100.0100 ####[facility] [address] [place], [address] RBC (Bld) [#/Vol] 3.19 10*6/uL Low 4.2-5.4 [facility] Comment on above: Performed By: #### L 501.2300, L100.0100 ####[facility] [address] [place], [address] RDW SD 48.2 fl High 35.1-43.9 [facility] Comment on above: Performed By: #### L 501.2300, L100.0100 ####[facility] [address] [place], [address] WBC (Bld) [#/Vol] 7.6 10*3/uL Normal 4.4-11.0 [facility] Comment on above: Performed By: #### L 501.2300, L100.0100 ####[facility] [address] [place], [address] Lipaseon 04-28-2025 Lipase [Catalytic activity/Vol] 533 U/L High 13-75 [facility] Comment on above: Result Comment: Lucie schultz note:LIPASE revised reference range effective 23.New Lipase methodology. Expected to produce lower valuesthan the previous assay method.NEW Reference Range: 13 - 75 U/L Performed By: #### L 500.2500, L500.3400, L501.5200, L501.2450 ####[facility] [address] [place], [address] Lipase measurementOrdered By : Canelo Myers on 04-28-2025 Lipase [Catalytic activity/Vol] 533 U/L High 13-75 [facility] Comment on above: Please note:LIPASE r evised reference range effective 23. New Lipase methodology. Expected to produce lower values than the previous assay method. NEW Reference Range: 13 - 75 U/L Liver Profileon 04-28-2025 Albumin [Mass/Vol] 3.7 g/dL Normal 3.5-5.0 [facility] Comment on above: Performed By: #### L 500.2500, L500.3400, L501.5200, L501.2450 ####[facility] [address] [place], [address] ALK PHOS 158 U/L High 35-104 [facility] Comment on above: Performed By: #### L 500.2500, L500.3400, L501.5200, L501.2450 ####[facility] [address] [place], [address] ALT [Catalytic activity/Vol] 72 U/L High <=34 [facility] Comment on above: Performed By: #### L 500.2500, L500.3400, L501.5200, L501.2450 ####[facility] [address] [place], [address] AST [Catalytic activity/Vol] 265 U/L High <=31 [facility] Comment on above: Performed By: #### L 500.2500, L500.3400, L501.5200, L501.2450 ####[facility] [address] [place], [address] Bilirubin [Mass/Vol] 1.26 mg/dL Normal 0.00-1.30 [facility] Comment on above: Performed By: #### L 500.2500, L500.3400, L501.5200, L501.2450 ####[facility] [address] [place], [address] Bilirubin.direct [Mass/Vol] 0.79 mg/dL High 0.00-0.30 [facility] Comment on above: Performed By: #### L 500.2500, L500.3400, L501.5200, L501.2450 ####[facility] [address] [place], [address] Globulin (S) [Mass/Vol] 2.6 g/dL Normal 2.2-4.2 [facility] Comment on above: Performed By: #### L 500.2500, L500.3400, L501.5200, L501.2450 ####[facility] [address] [place], [address] T PROT 6.3 g/dL Normal 5.9-8.4 [facility] Comment on above: Performed By: #### L 500.2500, L500.3400, L501.5200, L501.2450 ####[facility] [address] [place], [address] Magnesiumon 04-28-2025 Magnesium [Mass/Vol] 1.5 mg/dL Normal 1.5-2.2 [facility] Comment on above: Performed By: #### L 500.2500, L500.3400, L501.5200, L501.2450 ####[facility] [address] [place], [address] Phosphoruson 04-28-2025 Phosphate [Mass/Vol] 1.5 mg/dL Low 2.7-4.5 [facility] Comment on above: Performed By: #### L 501.2300, L100.0100 ####[facility] [address] [place], [address] Basic Metabolic Profile (BMP )on 04-27-2025 BUN/CRE 9.1 RATIO Low 10-20 [facility] Comment on above: Performed By: #### L 501.9520, L500.4050, L300.3900, L500.3400, L501.2300, L501.5200, L500.2500, L100.0100 ####[facility] [address] [place], [address] Calcium [Mass/Vol] 8.0 mg/dL Normal 7.6-11.0 [facility] Comment on above: Performed By: #### L 501.9520, L500.4050, L300.3900, L500.3400, L501.2300, L501.5200, L500.2500, L100.0100 ####[facility] [address] [place], [address] Chloride [Moles/Vol] 96 mmol/L Low 98-108 [facility] Comment on above: Performed By: #### L 501.9520, L500.4050, L300.3900, L500.3400, L501.2300, L501.5200, L500.2500, L100.0100 ####[facility] [address] [place], [address] CO2 [Moles/Vol] 16.0 mmol/L Low 21.0-32.0 [facility] Comment on above: Performed By: #### L 501.9520, L500.4050, L300.3900, L500.3400, L501.2300, L501.5200, L500.2500, L100.0100 ####[facility] [address] [place], [address] Creatinine [Mass/Vol] 0.69 mg/dL Low 0.70-1.20 [facility] Comment on above: Performed By: #### L 501.9520, L500.4050, L300.3900, L500.3400, L501.2300, L501.5200, L500.2500, L100.0100 ####[facility] [address] [place], [address] ECRCL 86.10 ml/min Normal 50-250 [facility] Comment on above: Performed By: #### L 501.9520, L500.4050, L300.3900, L500.3400, L501.2300, L501.5200, L500.2500, L100.0100 ####[facility] [address] [place], [address] GAP 22 High 5-15 [facility] Comment on above: Performed By: #### L 501.9520, L500.4050, L300.3900, L500.3400, L501.2300, L501.5200, L500.2500, L100.0100 ####[facility] [address] [place], [address] GFR/1.73 sq M.predicted among non-blacks MDRD (S/P/Bld) [Vol rate/Area] 107 mL/min/{1.73_m2} Normal >60 [facility] Comment on above: Result Comment: mL/m in/1.73m2 CKD-EPI Creatinine Equation (2020) Performed By: #### L 501.9520, L500.4050, L300.3900, L500.3400, L501.2300, L501.5200, L500.2500, L100.0100 ####[facility] [address] [place], [address] Glucose [Mass/Vol] 132 mg/dL High 70-99 [facility] Comment on above: Performed By: #### L 501.9520, L500.4050, L300.3900, L500.3400, L501.2300, L501.5200, L500.2500, L100.0100 ####[facility] [address] [place], [address] Potassium [Moles/Vol] 3.8 mmol/L Normal 3.3-5.1 [facility] Comment on above: Performed By: #### L 501.9520, L500.4050, L300.3900, L500.3400, L501.2300, L501.5200, L500.2500, L100.0100 ####[facility] [address] [place], [address] Sodium [Moles/Vol] 134 mmol/L Normal 133-145 [facility] Comment on above: Performed By: #### L 501.9520, L500.4050, L300.3900, L500.3400, L501.2300, L501.5200, L500.2500, L100.0100 ####[facility] [address] [place], [address] Urea nitrogen [Mass/Vol] 6 mg/dL Normal 4-19 [facility] Comment on above: Performed By: #### L 501.9520, L500.4050, L300.3900, L500.3400, L501.2300, L501.5200, L500.2500, L100.0100 ####[facility] [address] [place], [address] Bedside Glucoseon 04-27-2025 FINGERSTICK GLU 153 mg/dL High 74-106 [facility] Comment on above: Result Comment: CHAUNCEY GEMENT OF PATIENT CARE PER NURSING PROTOCOL Performed By: #### L 501.080 ####[facility] [address] [place], [address] FINGERSTICK GLU 149 mg/dL High 74-106 [facility] Comment on above: Result Comment: CHAUNCEY GEMENT OF PATIENT CARE PER NURSING PROTOCOL Performed By: #### L 501.080 ####[facility] [address] [place], [address] FINGERSTICK GLU 194 mg/dL High 74-106 [facility] Comment on above: Result Comment: CHAUNCEY GEMENT OF PATIENT CARE PER NURSING PROTOCOL Performed By: #### L 501.080 ####[facility] [address] [place], [address] FINGERSTICK GLU 107 mg/dL High 74-106 [facility] Comment on above: Result Comment: CHAUNCEY GEMENT OF PATIENT CARE PER NURSING PROTOCOL Performed By: #### L 501.080 ####[facility] [address] [place], [address] CBC W/Diff, Automatedon 05-3 0-2024 Absolute Lymph 0.83 X10 3/uL Normal 0.83-4.51 [facility] Comment on above: Performed By: #### L 501.9520, L500.4050, L300.3900, L500.3400, L501.2300, L501.5200, L500.2500, L100.0100 ####[facility] [address] [place], [address] Absolute Neut 9.6 X10 3/uL High 2.0-7.7 [facility] Comment on above: Performed By: #### L 501.9520, L500.4050, L300.3900, L500.3400, L501.2300, L501.5200, L500.2500, L100.0100 ####[facility] [address] [place], [address] Basophils/100 WBC (Bld) 0.3 % Normal 0-1 [facility] Comment on above: Performed By: #### L 501.9520, L500.4050, L300.3900, L500.3400, L501.2300, L501.5200, L500.2500, L100.0100 ####[facility] [address] [place], [address] Eosinophils/100 WBC (Bld) 0.1 % Normal 0-5 [facility] Comment on above: Performed By: #### L 501.9520, L500.4050, L300.3900, L500.3400, L501.2300, L501.5200, L500.2500, L100.0100 ####[facility] [address] [place], [address] Erythrocyte distribution width (RBC) [Ratio] 12.7 % Normal 11.6-14.6 [facility] Comment on above: Performed By: #### L 501.9520, L500.4050, L300.3900, L500.3400, L501.2300, L501.5200, L500.2500, L100.0100 ####[facility] [address] [place], [address] Hematocrit (Bld) [Volume fraction] 39.2 % Normal 37-47 [facility] Comment on above: Performed By: #### L 501.9520, L500.4050, L300.3900, L500.3400, L501.2300, L501.5200, L500.2500, L100.0100 ####[facility] [address] [place], [address] Hemoglobin (Bld) [Mass/Vol] 13.5 g/dL Normal 12.0-15.0 [facility] Comment on above: Performed By: #### L 501.9520, L500.4050, L300.3900, L500.3400, L501.2300, L501.5200, L500.2500, L100.0100 ####[facility] [address] [place], [address] IG% 0.400 Normal 0.0-0.9 [facility] Comment on above: Result Comment: IG% - Immature Granulocytes (promyelocytes, myelocytes andmetamyelocytes) > 1% indicates that a LEFT SHIFT is Present. Performed By: #### L 501.9520, L500.4050, L300.3900, L500.3400, L501.2300, L501.5200, L500.2500, L100.0100 ####[facility] [address] [place], [address] Lymphocytes/100 WBC (Bld) 7.3 % Low 19-41 [facility] Comment on above: Performed By: #### L 501.9520, L500.4050, L300.3900, L500.3400, L501.2300, L501.5200, L500.2500, L100.0100 ####[facility] [address] [place], [address] MCH (RBC) [Entitic mass] 36.6 pg High 27.0-32.0 [facility] Comment on above: Performed By: #### L 501.9520, L500.4050, L300.3900, L500.3400, L501.2300, L501.5200, L500.2500, L100.0100 ####[facility] [address] [place], [address] MCHC (RBC) [Mass/Vol] 34.4 g/dL Normal 32-36 [facility] [place] Comment on above: Performed By: #### L 501.9520, L500.4050, L300.3900, L500.3400, L501.2300, L501.5200, L500.2500, L100.0100 ####[facility] [address] [place], [address] MCV (RBC) [Entitic vol] 106.2 fL High 81-99 [facility] Comment on above: Performed By: #### L 501.9520, L500.4050, L300.3900, L500.3400, L501.2300, L501.5200, L500.2500, L100.0100 ####[facility] [address] [place], [address] Monocytes/100 WBC (Bld) 7.9 % Normal 0-10 [facility] Comment on above: Performed By: #### L 501.9520, L500.4050, L300.3900, L500.3400, L501.2300, L501.5200, L500.2500, L100.0100 ####[facility] [address] [place], [address] Neutrophils/100 WBC (Bld) 84.0 % High 47-70 [facility] Comment on above: Performed By: #### L 501.9520, L500.4050, L300.3900, L500.3400, L501.2300, L501.5200, L500.2500, L100.0100 ####[facility] [address] [place], [address] Nucleated RBC (Bld) [#/Vol] 0 10*3/uL Normal 0-5 [facility] Comment on above: Performed By: #### L 501.9520, L500.4050, L300.3900, L500.3400, L501.2300, L501.5200, L500.2500, L100.0100 ####[facility] [address] [place], [address] Platelet mean volume (Bld) [Entitic vol] 9.7 fL Normal 6.2-12.0 [facility] Comment on above: Performed By: #### L 501.9520, L500.4050, L300.3900, L500.3400, L501.2300, L501.5200, L500.2500, L100.0100 ####[facility] [address] [place], [address] Platelets (Bld) [#/Vol] 153 10*3/uL Normal 150-450 [facility] Comment on above: Performed By: #### L 501.9520, L500.4050, L300.3900, L500.3400, L501.2300, L501.5200, L500.2500, L100.0100 ####[facility] [address] [place], [address] RBC (Bld) [#/Vol] 3.69 10*6/uL Low 4.2-5.4 [facility] Comment on above: Performed By: #### L 501.9520, L500.4050, L300.3900, L500.3400, L501.2300, L501.5200, L500.2500, L100.0100 ####[facility] [address] [place], [address] RDW SD 49.7 fl High 35.1-43.9 [facility] Comment on above: Performed By: #### L 501.9520, L500.4050, L300.3900, L500.3400, L501.2300, L501.5200, L500.2500, L100.0100 ####[facility] [address] [place], [address] WBC (Bld) [#/Vol] 11.4 10*3/uL High 4.4-11.0 [facility] Comment on above: Performed By: #### L 501.9520, L500.4050, L300.3900, L500.3400, L501.2300, L501.5200, L500.2500, L100.0100 ####[facility] [address] [place], [place], [phone] Comprehensive Metabolic Prof ilon 04-27-2025 Albumin/Globulin [Mass ratio] 1.4 {ratio} Normal 0.9-2.4 [facility] Comment on above: Performed By: #### L 501.9520, L500.4050, L300.3900, L500.3400, L501.2300, L501.5200, L500.2500, L100.0100 ####[facility] [address] [place], [address] Hemoglobin A1con 04-27-2025 HbA1c (Bld) [Mass fraction] 5.6 % Normal <=5.6 [facility] Comment on above: Result Comment: Norm al < 5.7 % Prediabetic 5.7 - 6.4 % Diabetic >or= 6.5 % Please note range changes. Performed By: #### L 296.2137 ####[facility] [address] [place], [place], [phone] Hemoglobin A1c percentageOrd ered By: Julius Moncada on 04-27-2025 HbA1c (Bld) [Mass fraction] 5.6 % <5.7 [facility] Comment on above: Normal < 5.7 % Predi abetic 5.7 - 6.4 % Diabetic >or= 6.5 % Please note range changes. International normalized rat io (INR) calculationOrdered By: Julius Moncada on 04-27-2025 INR Coag (Bld) [Relative time] 1.0 {INR} [facility] Liver Profileon 04-27-2025 Albumin [Mass/Vol] 3.9 g/dL Normal 3.5-5.0 [facility] Comment on above: Performed By: #### L 501.9520, L500.4050, L300.3900, L500.3400, L501.2300, L501.5200, L500.2500, L100.0100 ####[facility] [address] [place], [place], [phone] ALK PHOS 98 U/L Normal 35-104 [facility] Comment on above: Performed By: #### L 501.9520, L500.4050, L300.3900, L500.3400, L501.2300, L501.5200, L500.2500, L100.0100 ####[facility] [address] [place], [address] ALT [Catalytic activity/Vol] 46 U/L High <=34 [facility] Comment on above: Performed By: #### L 501.9520, L500.4050, L300.3900, L500.3400, L501.2300, L501.5200, L500.2500, L100.0100 ####[facility] [address] [place], [place], [phone] AST [Catalytic activity/Vol] 96 U/L High <=31 [facility] Comment on above: Performed By: #### L 501.9520, L500.4050, L300.3900, L500.3400, L501.2300, L501.5200, L500.2500, L100.0100 ####[facility] [address] [place], [address] Bilirubin [Mass/Vol] 0.99 mg/dL Normal 0.00-1.30 [facility] Comment on above: Performed By: #### L 501.9520, L500.4050, L300.3900, L500.3400, L501.2300, L501.5200, L500.2500, L100.0100 ####[facility] [address] [place], [address] Bilirubin.direct [Mass/Vol] 0.54 mg/dL High 0.00-0.30 [facility] Comment on above: Performed By: #### L 501.9520, L500.4050, L300.3900, L500.3400, L501.2300, L501.5200, L500.2500, L100.0100 ####[facility] [address] [place], [address] Globulin (S) [Mass/Vol] 2.7 g/dL Normal 2.2-4.2 [facility] Comment on above: Performed By: #### L 501.9520, L500.4050, L300.3900, L500.3400, L501.2300, L501.5200, L500.2500, L100.0100 ####[facility] [address] [place], [address] T PROT 6.6 g/dL Normal 5.9-8.4 [facility] Comment on above: Performed By: #### L 501.9520, L500.4050, L300.3900, L500.3400, L501.2300, L501.5200, L500.2500, L100.0100 ####[facility] [address] [place], [address] Magnesiumon 04-27-2025 Magnesium [Mass/Vol] 0.9 mg/dL Invalid Interpretation Code 1.5-2.2 [facility] Comment on above: Result Comment: Crit ical Result(s) Called at:04/27/2025-02:13 by: Rachel.??Results read back by same. Performed By: #### L 501.9520, L500.4050, L300.3900, L500.3400, L501.2300, L501.5200, L500.2500, L100.0100 ####[facility] [address] [place], [place], [phone] Phosphoruson 04-27-2025 Phosphate [Mass/Vol] 3.3 mg/dL Normal 2.7-4.5 [facility] Comment on above: Performed By: #### L 501.9520, L500.4050, L300.3900, L500.3400, L501.2300, L501.5200, L500.2500, L100.0100 ####[facility] [address] [place], [place], [phone] Prothrombin Time w/INRon INR Coag (PPP) [Relative time] 1.0 {INR} Normal [facility] Comment on above: Performed By: #### L 501.9520, L500.4050, L300.3900, L500.3400, L501.2300, L501.5200, L500.2500, L100.0100 ####[facility] [address] [place], [place], [phone] PT Coag (PPP) [Time] 12.9 s Normal 11.7-14.9 [facility] Comment on above: Performed By: #### L 501.9520, L500.4050, L300.3900, L500.3400, L501.2300, L501.5200, L500.2500, L100.0100 ####[facility] [address] [place], [place], [phone] Prothrombin timeOrdered By: Julius Moncada on 04-27-2025 PT Coag (PPP) [Time] 12.9 s 11.7-14.9 [facility] TSH DL <= 0.005 mIU/L QnOrde red By: Julius Moncada on 04-27-2025 TSH Qn 4.010 uIU/mL 0.300-4.200 [facility] Comment on above: Previous reported re sult: 3.960 uIU/mLEdited by: BRITTNEY on 04/27/25:0236 AMENDED REPORT 04/27/25235 TSH previously reported as: 3.960 uIU/mL Thyroid Stim Hormone (TSH)on 04-27-2025 TSH 4.010 uIU/mL Normal 0.300-4.200 [facility] Comment on above: Result Comment: AMENDED REPORT 04/27/25235 TSH previously reported as: 3.960 uIU/mL Performed By: #### L 501.9520, L500.4050, L300.3900, L500.3400, L501.2300, L501.5200, L500.2500, L100.0100 ####[facility] [address] [place], [place], [address] Abdomen/Pelvis W IV Cont ONL Yon 04-26-2025 Abdomen/Pelvis W IV Cont ONLY Normal [facility] Absolute lymphocyte countOrd ered By: Humphrey Garcia on 04-26-2025 Lymphocytes Auto (Unsp spec) [#/Vol] 0.76 10*3/uL Low 0.83-4.51 [facility] Absolute neutrophil countOrd ered By: Humphrey Garcia on 04-26-2025 Neutrophils (Bld) [#/Vol] 8.8 10*3/uL High 2.0-7.7 [facility] Alcohol, Blood (Medical)-Ser umon 04-26-2025 SERUM ETOH < 10.1 Normal <=10.0 [facility] Comment on above: Result Comment: This test is for medical purposes only. The legaldefinition of intoxication varies according to local law. Performed By: #### L 501.9100 ####[facility] [address] [place], [address] Anion gap in Serum or Plasma Ordered By: Humphrey Garcia on 04-26-2025 Anion gap [Moles/Vol] 36 mmol/L High 5-15 [facility] Automated lymphocyte count a s percentage of total leukocytesOrdered By: Humphrey Garcia on 04-26-2025 Lymphocytes/100 WBC Auto (Unsp spec) 7.3 % Low 19-41 [facility] BUN/creatinine ratioOrdered By: Humphrey Garcia on 04-26-2025 Urea nitrogen/Creatinine [Mass ratio] 11.2 mg/mg 10-20 [facility] Basophil percentageOrdered B y: Humphrey Garcia on 04-26-2025 Basophils/100 WBC (Bld) 0.4 % 0-1 [facility] Bilirubin Test strip Ql (U)O rdered By: Humphrey Garcia on 04-26-2025 Bilirubin Ql (U) Negative Negative [facility] Bilirubin, totalOrdered By: Humphrey Garcia on 04-26-2025 Bilirubin [Mass/Vol] 1.42 mg/dL High 0.00-1.30 [facility] CBC W/Diff, Automatedon 03-30 Absolute Lymph 0.76 X10 3/uL Low 0.83-4.51 [facility] Comment on above: Performed By: #### L 500.4050, L501.2450, L100.0100 ####[facility] [address] [place], [address] Absolute Neut 8.8 X10 3/uL High 2.0-7.7 [facility] Comment on above: Performed By: #### L 500.4050, L501.2450, L100.0100 ####[facility] [address] [place], [address] Basophils/100 WBC (Bld) 0.4 % Normal 0-1 [facility] Comment on above: Performed By: #### L 500.4050, L501.2450, L100.0100 ####[facility] [address] [place], [address] Eosinophils/100 WBC (Bld) 0.0 % Normal 0-5 [facility] Comment on above: Performed By: #### L 500.4050, L501.2450, L100.0100 ####[facility] [id number] [place], [address] Erythrocyte distribution width (RBC) [Ratio] 12.8 % Normal 11.6-14.6 [facility] Comment on above: Performed By: #### L 500.4050, L501.2450, L100.0100 ####[facility] [id number] [place], [address] Hematocrit (Bld) [Volume fraction] 42.8 % Normal 37-47 [facility] Comment on above: Performed By: #### L 500.4050, L501.2450, L100.0100 ####[facility] [address] [place], [address] Hemoglobin (Bld) [Mass/Vol] 14.8 g/dL Normal 12.0-15.0 [facility] Comment on above: Performed By: #### L 500.4050, L501.2450, L100.0100 ####[facility] [address] [place], [address] IG% 0.700 Normal 0.0-0.9 [facility] Comment on above: Result Comment: IG% - Immature Granulocytes (promyelocytes, myelocytes andmetamyelocytes) > 1% indicates that a LEFT SHIFT is Present. Performed By: #### L 500.4050, L501.2450, L100.0100 ####[facility] [address] [place], [address] Lymphocytes/100 WBC (Bld) 7.3 % Low 19-41 [facility] Comment on above: Performed By: #### L 500.4050, L501.2450, L100.0100 ####[facility] [address] [place], [address] MCH (RBC) [Entitic mass] 36.2 pg High 27.0-32.0 [facility] Comment on above: Performed By: #### L 500.4050, L501.2450, L100.0100 ####[facility] [address] [place], [address] MCHC (RBC) [Mass/Vol] 34.6 g/dL Normal 32-36 [facility] Comment on above: Performed By: #### L 500.4050, L501.2450, L100.0100 ####[facility] [address] [place], [address] MCV (RBC) [Entitic vol] 104.6 fL High 81-99 [facility] Comment on above: Performed By: #### L 500.4050, L501.2450, L100.0100 ####[facility] [address] [place], [address] Monocytes/100 WBC (Bld) 7.0 % Normal 0-10 [facility] Comment on above: Performed By: #### L 500.4050, L501.2450, L100.0100 ####[facility] [address] [place], [address] Neutrophils/100 WBC (Bld) 84.6 % High 47-70 [facility] Comment on above: Performed By: #### L 500.4050, L501.2450, L100.0100 ####[facility] [address] [place], [address] Nucleated RBC (Bld) [#/Vol] 0.2 10*3/uL Normal 0-5 [facility] Comment on above: Performed By: #### L 500.4050, L501.2450, L100.0100 ####[facility] [address] [place], [address] Platelet mean volume (Bld) [Entitic vol] 10.0 fL Normal 6.2-12.0 [facility] Comment on above: Performed By: #### L 500.4050, L501.2450, L100.0100 ####[facility] [address] [place], [address] Platelets (Bld) [#/Vol] 175 10*3/uL Normal 150-450 [facility] Comment on above: Performed By: #### L 500.4050, L501.2450, L100.0100 ####[facility] [address] [place], [address] RBC (Bld) [#/Vol] 4.09 10*6/uL Low 4.2-5.4 [facility] Comment on above: Performed By: #### L 500.4050, L501.2450, L100.0100 ####[facility] [address] [place], [address] RDW SD 49.4 fl High 35.1-43.9 [facility] Comment on above: Performed By: #### L 500.4050, L501.2450, L100.0100 ####[facility] [address] [place], [address] WBC (Bld) [#/Vol] 10.4 10*3/uL Normal 4.4-11.0 [facility] Comment on above: Performed By: #### L 500.4050, L501.2450, L100.0100 ####[facility] [address] [place], [address] Carbon dioxide, total [Moles /volume] in Central venous bloodOrdered By: Humphrey Garcia on 04-26-2025 CO2 [Moles/Vol] 16.4 mmol/L Low 21.0-32.0 [facility] Chloride assayOrdered By: Edison Garcia on 04-26-2025 Chloride [Moles/Vol] 87 mmol/L Low 98-108 [facility] Comprehensive Metabolic Prof ilon 04-26-2025 Albumin [Mass/Vol] 4.5 g/dL Normal 3.5-5.0 [facility] Comment on above: Performed By: #### L 500.4050, L501.2450, L100.0100 ####[facility] [address] [place], [address] Albumin/Globulin [Mass ratio] 1.4 {ratio} Normal 0.9-2.4 [facility] Comment on above: Performed By: #### L 500.4050, L501.2450, L100.0100 ####[facility] [address] [place], [address] ALK PHOS 122 U/L High 35-104 [facility] Comment on above: Performed By: #### L 500.4050, L501.2450, L100.0100 ####[facility] [address] [place], [address] ALT [Catalytic activity/Vol] 62 U/L High <=34 [facility] Comment on above: Performed By: #### L 500.4050, L501.2450, L100.0100 ####[facility] [address] [place], [address] AST [Catalytic activity/Vol] 127 U/L High <=31 [facility] Comment on above: Performed By: #### L 500.4050, L501.2450, L100.0100 ####[facility] [address] [place], [address] Bilirubin [Mass/Vol] 1.42 mg/dL High 0.00-1.30 [facility] Comment on above: Performed By: #### L 500.4050, L501.2450, L100.0100 ####[facility] [address] [place], [address] BUN/CRE 11.2 RATIO Normal 10-20 [facility] Comment on above: Performed By: #### L 500.4050, L501.2450, L100.0100 ####[facility] [address] [place], [address] Calcium [Mass/Vol] 8.9 mg/dL Normal 7.6-11.0 [facility] Comment on above: Performed By: #### L 500.4050, L501.2450, L100.0100 ####[facility] [address] [place], [address] Chloride [Moles/Vol] 87 mmol/L Low 98-108 [facility] Comment on above: Performed By: #### L 500.4050, L501.2450, L100.0100 ####[facility] [address] [place], [address] CO2 [Moles/Vol] 16.4 mmol/L Low 21.0-32.0 [facility] Comment on above: Performed By: #### L 500.4050, L501.2450, L100.0100 ####[facility] [address] [place], [address] Creatinine [Mass/Vol] 0.70 mg/dL Normal 0.70-1.20 [facility] Comment on above: Performed By: #### L 500.4050, L501.2450, L100.0100 ####[facility] [address] [place], [address] ECRCL 84.87 ml/min Normal 50-250 [facility] Comment on above: Performed By: #### L 500.4050, L501.2450, L100.0100 ####[facility] [address] [place], [address] GAP 36 High 5-15 [facility] Comment on above: Performed By: #### L 500.4050, L501.2450, L100.0100 ####[facility] [address] [place], [address] GFR/1.73 sq M.predicted among non-blacks MDRD (S/P/Bld) [Vol rate/Area] 107 mL/min/{1.73_m2} Normal >60 [facility] Comment on above: Result Comment: mL/m in/1.73m2 CKD-EPI Creatinine Equation (2020) Performed By: #### L 500.4050, L501.2450, L100.0100 ####[facility] [address] [place], [address] Globulin (S) [Mass/Vol] 3.2 g/dL Normal 2.2-4.2 [facility] Comment on above: Performed By: #### L 500.4050, L501.2450, L100.0100 ####[facility] [address] [place], [address] Glucose [Mass/Vol] 156 mg/dL High 70-99 [facility] Comment on above: Performed By: #### L 500.4050, L501.2450, L100.0100 ####[facility] [address] [place], [address] Potassium [Moles/Vol] 2.8 mmol/L Low 3.3-5.1 [facility] Comment on above: Performed By: #### L 500.4050, L501.2450, L100.0100 ####[facility] [address] [place], [address] Sodium [Moles/Vol] 139 mmol/L Normal 133-145 [facility] Comment on above: Performed By: #### L 500.4050, L501.2450, L100.0100 ####[facility] [address] [place], [address] T PROT 7.7 g/dL Normal 5.9-8.4 [facility] Comment on above: Performed By: #### L 500.4050, L501.2450, L100.0100 ####[facility] [address] [place], [address] Urea nitrogen [Mass/Vol] 8 mg/dL Normal 4-19 [facility] Comment on above: Performed By: #### L 500.4050, L501.2450, L100.0100 ####[facility] [address] [place], [address] Emergency Department Summary on 04-26-2025 Emergency Department Summary Normal [facility] Eosinophil percentageOrdered By: Humphrey Garcia on 04-26-2025 Eosinophils/100 WBC (Bld) 0.0 % 0-5 [facility] Erythrocyte distribution wid th ratioOrdered By: Humphrey Garcia on 04-26-2025 Erythrocyte distribution width (RBC) [Ratio] 12.8 % 11.6-14.6 [facility] Erythrocyte distribution wid th standard deviationOrdered By: Humphrey Garcia on 04-26-2025 Erythrocyte distribution width (RBC) [Ratio] 49.4 fl High 35.1-43.9 [facility] Glomerular filtration rate ( GFR) estimation/1.73 sq m using serum, plasma, or whole bOrdered By: Humphrey Garcia on 04-26-2025 GFR/1.73 sq M.predicted among non-blacks MDRD (S/P/Bld) [Vol rate/Area] 107 mL/min/{1.73_m2} >60 [facility] Comment on above: mL/min/1.73m2 CKD-EP I Creatinine Equation (2020) H AND P Exam - Hospital[facility] 04-26-2025 H&P Exam - Hospitalist Normal [facility] Hematocrit Auto (Bld) [Volum e fraction]Ordered By: Humphrey Garcia on 04-26-2025 Hematocrit (Bld) [Volume fraction] 42.8 % 37-47 [facility] Hemoglobin measurementOrdere d By: Humphrey Garcia on 04-26-2025 Hemoglobin (Bld) [Mass/Vol] 14.8 g/dL 12.0-15.0 [facility] Immature granulocytes/100 WB C Auto (Bld)Ordered By: Humphrey Garcia on 04-26-2025 Immature granulocytes/100 WBC (Bld) 0.700 % 0.0-0.9 [facility] Comment on above: IG% - Immature Granu locytes (promyelocytes, myelocytes and metamyelocytes) > 1% indicates that a LEFT SHIFT is Present. Ketones Test strip Ql (U)Ord ered By: Humphrey Garcia on 04-26-2025 Ketones Ql (U) 150 mg/dl Abnormal Negative [facility] Comment on above: CRITICAL VALUE *HCRI TICAL VALUE CALLED TO [id number]/29/25 163Emilee Herzog.RESULTS READ BACK BY SAME. Laboratory - Chemistry and C hemistry - challengeOrdered By: Humphrey Garcia on 04-26-2025 AST [Catalytic activity/Vol] 127 U/L High <32 [facility] Lipaseon 04-26-2025 Lipase [Catalytic activity/Vol] 1045 U/L High 13-75 [facility] Comment on above: Result Comment: Lucie schultz note:LIPASE revised reference range effective 23.New Lipase methodology. Expected to produce lower valuesthan the previous assay method.NEW Reference Range: 13 - 75 U/L Performed By: #### L 500.4050, L501.2450, L100.0100 ####[facility] [address] [place], [address] Lipase measurementOrdered By : Humphrey Garcia on 04-26-2025 Lipase [Catalytic activity/Vol] 1045 U/L High 13-75 [facility] Comment on above: Please note:LIPASE r evised reference range effective 23. New Lipase methodology. Expected to produce lower values than the previous assay method. NEW Reference Range: 13 - 75 U/L MCV (mean corpuscular volume ) determinationOrdered By: Humphrey Garcia on 04-26-2025 MCV (RBC) [Entitic vol] 104.6 fL High 81-99 [facility] Mean corpuscular hemoglobin (MCH) determinationOrdered By: Humphrey Garcia on 04-26-2025 MCH (RBC) [Entitic mass] 36.2 pg High 27.0-32.0 [facility] Mean corpuscular hemoglobin concentration (MCHC) determinationOrdered By: Humphrey Garcia on 04-26-2025 MCHC (RBC) [Mass/Vol] 34.6 g/dL 32-36 [facility] Mean platelet volume determi nationOrdered By: Humphrey Garcia on 04-26-2025 Platelet mean volume (Bld) [Entitic vol] 10.0 fL 6.2-12.0 [facility] Microscopic analysis of urin e for red blood cells (RBC)Ordered By: Humphrey Garcia on 04-26-2025 Microscopic analysis of urine for red blood cells (RBC) 0-5 SEEN /hpf 0-5 [facility] Monocyte percentageOrdered B y: Humphrey Garcia on 04-26-2025 Monocytes/100 WBC (Bld) 7.0 % 0-10 [facility] Mucus LM Ql (Urine sed)Order ed By: Humphrey Garcia on 04-26-2025 Mucus Ql (Urine sed) 0 SEEN /hpf [facility] Neutrophil percentageOrdered By: Humphery Garcia on 04-26-2025 Neutrophils/100 WBC (Bld) 84.6 % High 47-70 [facility] Nitrite Test strip Ql (U)Ord ered By: Humphrey Garcia on 04-26-2025 Nitrite Ql (U) Negative Negative [facility] Nucleated red blood cell per centageOrdered By: Humphrey Garcia on 04-26-2025 Nucleated RBC/100 WBC (Bld) [Ratio] 0.2 % 0-5 [facility] Platelet countOrdered By: Edison Garcia on 04-26-2025 Platelets (Bld) [#/Vol] 175 10*3/uL 150-450 [facility] Potassium measurement (mass/ volume)Ordered By: Humphrey Garcia on 04-26-2025 Potassium (Unsp spec) [Mass/Vol] 2.8 mmol/L Low 3.3-5.1 [facility] Protein Test strip Ql (U)Ord ered By: Humphrey Garcia on 04-26-2025 Protein Ql (U) 30 mg/dl High Negative [facility] Prothrombin Time w/INRon INR Coag (PPP) [Relative time] 1.0 {INR} Normal [facility] Comment on above: Performed By: #### L 300.3900 ####[facility] [address] [place], [address] PT Coag (PPP) [Time] 13.3 s Normal 11.7-14.9 [facility] Comment on above: Performed By: #### L 300.3900 ####[facility] [address] [place], [address] RBC Auto (Bld) [#/Vol]Ordere d By: Humphrey Garcia on 04-26-2025 RBC (Bld) [#/Vol] 4.09 10*6/uL Low 4.2-5.4 [facility] Serum creatinine measurement (mass/volume)Ordered By: Humphrey Garcia on 04-26-2025 Creatinine [Mass/Vol] 0.70 mg/dL 0.70-1.20 [facility] Serum globulin measurementOr dered By: Humphrey Garcia on 04-26-2025 Globulin (S) [Mass/Vol] 3.2 g/dL 2.2-4.2 [facility] Serum glucose measurement (m ass/volume)Ordered By: Humphrey Garcia on 04-26-2025 Glucose [Mass/Vol] 156 mg/dL High 70-99 [facility] Serum or plasma alanine wilkerson otransferase (ALT) measurementOrdered By: Humphrey Garcia on 04-26-2025 ALT [Catalytic activity/Vol] 62 U/L High <35 [facility] Serum or plasma albumin alphonso urement (mass/volume)Ordered By: Humphrey Garcia on 04-26-2025 Albumin [Mass/Vol] 4.5 g/dL 3.5-5.0 [facility] Serum or plasma albumin/glob ulin mass ratioOrdered By: Humphrey Garcia on 04-26-2025 Albumin/Globulin [Mass ratio] 1.4 {ratio} 0.9-2.4 [facility] Serum or plasma alkaline trinity sphatase measurementOrdered By: Humphrey Garcia on 04-26-2025 ALP [Catalytic activity/Vol] 122 U/L High 35-104 [facility] Serum or plasma calcium alphonso urement (mass/volume)Ordered By: Humphrey Garcia on 04-26-2025 Calcium [Mass/Vol] 8.9 mg/dL 7.6-11.0 [facility] Serum or plasma ethanol alphonso urement (mass/volume)Ordered By: Humphrey Garcia on 04-26-2025 Ethanol [Mass/Vol] mg/dL <10.1 [facility] Comment on above: This test is for med ical purposes only. The legal definition of intoxication varies according to local law. Serum or plasma urea nitroge n measurement (mass/volume)Ordered By: Humphrey Garcia on 04-26-2025 Urea nitrogen [Mass/Vol] 8 mg/dL 4-19 [facility] Sodium levelOrdered By: Scout Garcia on 04-26-2025 Sodium [Moles/Vol] 139 mmol/L 133-145 [facility] Squamous epithelial cells de tection in urine sediment by light microscopyOrdered By: Humphrey Garcia on 04-26-2025 Epithelial cells.squamous LM Ql (Urine sed) 0-5 SEEN /hpf 5-10 [facility] Total proteinOrdered By: Carin Garcia on 04-26-2025 Protein [Mass/Vol] 7.7 g/dL 5.9-8.4 [facility] Urinalysis, Completeon 04-26 EPI,SQUAMOUS 0-5 SEEN Normal 5-10 [facility] Comment on above: Order Comment: CLEAN CATCH Performed By: #### L 400.0001 ####[facility] [address] [place], [address] RBC 0-5 SEEN Normal 0-5 [facility] Comment on above: Order Comment: CLEAN CATCH Performed By: #### L 400.0001 ####[facility] [address] [place], [address] BACTERIA 0 SEEN Normal None Seen [facility] Comment on above: Order Comment: CLEAN CATCH Performed By: #### L 400.0001 ####[facility] [address] [place], [address] Mucus Ql (Urine sed) 0 SEEN Normal [facility] Comment on above: Order Comment: CLEAN CATCH Performed By: #### L 400.0001 ####[facility] [address] [place], [address] WBC 0 SEEN Normal 0-5 [facility] Comment on above: Order Comment: CLEAN CATCH Performed By: #### L 400.0001 ####[facility] [address] [place], [place], [id number] Urine clarityOrdered By: Carin Garcia on 04-26-2025 Clarity (U) Clear Clear [facility] Urine color determinationOrd ered By: Humphrey Garcia on 04-26-2025 Color (U) Yellow Yellow [facility] Urine glucose detectionOrder ed By: Humphrey Garcia on 04-26-2025 Glucose Ql (U) 1000 mg/dl High Normal [facility] Urine leukocyte esterase det ection by dipstickOrdered By: Humphrey Garcia on 04-26-2025 Leukocyte esterase Test strip Ql (U) Negative Negative [facility] Urine pHOrdered By: Humphrey tyler on 04-26-2025 pH (U) 6.0 [pH] 5.0 - 8.0 [facility] Urine sediment bacteria coun t by microscopy (number/high power field)Ordered By: Humphrey Garcia on 04-26-2025 Bacteria LM.HPF (Urine sed) [#/Area] 0 /[HPF] None Seen [facility] Urine specific gravity measu rementOrdered By: Humphrey Garcia on 04-26-2025 Specific gravity (U) [Rel density] 1.010 1.002-1.030 [facility] Urine urobilinogen measureme ntOrdered By: Humphrey Garcia on 04-26-2025 Urobilinogen Ql (U) 1 mg/dl High Normal [facility] White blood cell (WBC) count Ordered By: Humphreyanuradha Garcia on 04-26-2025 WBC (Bld) [#/Vol] 10.4 10*3/uL 4.4-11.0 [facility] White blood cell countOrdere d By: Humphrey Garcia on 04-26-2025 White blood cell count 0 SEEN /hpf 0-5 [facility] 12 Lead EKGon 04-11-2025 12 Lead EKG Normal [facility] Absolute lymphocyte countOrd ered By: Francisco Colon on 04-11-2025 Lymphocytes Auto (Unsp spec) [#/Vol] 2.10 10*3/uL 0.83-4.51 [facility] Absolute neutrophil countOrd ered By: Francisco Colon on 04-11-2025 Neutrophils (Bld) [#/Vol] 2.1 10*3/uL 2.0-7.7 [facility] Alcohol, Blood (Medical)-Ser umon 04-11-2025 SERUM ETOH 328.0 mg/dL Invalid Interpretation Code <=10.0 [facility] Comment on above: Result Comment: Crit ical Result(s) Called at:2346 by: LUISITO GEORGE??Results read back by same.This test is for medical purposes only. The legaldefinition of intoxication varies according to local law. Performed By: #### L 501.4021, L501.9100, L100.0100, L500.2500, L501.2450 ####[facility] [address] [place], [address] Anion gap in Serum or Plasma Ordered By: Francisco Colon on 04-11-2025 Anion gap [Moles/Vol] 16 mmol/L High 5-15 [facility] Automated lymphocyte count a s percentage of total leukocytesOrdered By: Francisco Colon on 04-11-2025 Lymphocytes/100 WBC Auto (Unsp spec) 42.0 % High 19-41 [facility] BUN/creatinine ratioOrdered By: Francisco Colon on 04-11-2025 Urea nitrogen/Creatinine [Mass ratio] 20.2 mg/mg High 10-20 [facility] Basic Metabolic Profile (BMP )on 04-11-2025 BUN/CRE 20.2 RATIO High 10-20 [facility] Comment on above: Performed By: #### L 501.4021, L501.9100, L100.0100, L500.2500, L501.2450 ####[facility] [address] [place], [address] Calcium [Mass/Vol] 8.8 mg/dL Normal 7.6-11.0 [facility] Comment on above: Performed By: #### L 501.4021, L501.9100, L100.0100, L500.2500, L501.2450 ####[facility] [address] [place], [address] Chloride [Moles/Vol] 100 mmol/L Normal 98-108 [facility] Comment on above: Performed By: #### L 501.4021, L501.9100, L100.0100, L500.2500, L501.2450 ####[facility] [address] [place], [address] CO2 [Moles/Vol] 28.2 mmol/L Normal 21.0-32.0 [facility] Comment on above: Performed By: #### L 501.4021, L501.9100, L100.0100, L500.2500, L501.2450 ####[facility] [address] [place], [address] Creatinine [Mass/Vol] 0.53 mg/dL Low 0.70-1.20 [facility] Comment on above: Performed By: #### L 501.4021, L501.9100, L100.0100, L500.2500, L501.2450 ####[facility] [address] [place], [address] ECRCL 112.09 ml/min Normal 50-250 [facility] Comment on above: Performed By: #### L 501.4021, L501.9100, L100.0100, L500.2500, L501.2450 ####[facility] [address] [place], [address] GAP 16 High 5-15 [facility] Comment on above: Performed By: #### L 501.4021, L501.9100, L100.0100, L500.2500, L501.2450 ####[facility] [address] [place], [address] GFR/1.73 sq M.predicted among non-blacks MDRD (S/P/Bld) [Vol rate/Area] 114 mL/min/{1.73_m2} Normal >60 [facility] Comment on above: Result Comment: mL/m in/1.73m2 CKD-EPI Creatinine Equation (2020) Performed By: #### L 501.4021, L501.9100, L100.0100, L500.2500, L501.2450 ####[facility] [address] [place], [address] Glucose [Mass/Vol] 131 mg/dL High 70-99 [facility] Comment on above: Performed By: #### L 501.4021, L501.9100, L100.0100, L500.2500, L501.2450 ####[facility] [address] [place], [address] Potassium [Moles/Vol] 3.2 mmol/L Low 3.3-5.1 [facility] Comment on above: Performed By: #### L 501.4021, L501.9100, L100.0100, L500.2500, L501.2450 ####[facility] [address] [place], [address] Sodium [Moles/Vol] 144 mmol/L Normal 133-145 [facility] Comment on above: Performed By: #### L 501.4021, L501.9100, L100.0100, L500.2500, L501.2450 ####[facility] [address] [place], [address] Urea nitrogen [Mass/Vol] 11 mg/dL Normal 4-19 [facility] Comment on above: Performed By: #### L 501.4021, L501.9100, L100.0100, L500.2500, L501.2450 ####[facility] [address] [place], [address] Basophil percentageOrdered B y: Francisco Colon on 04-11-2025 Basophils/100 WBC (Bld) 1.2 % High 0-1 [facility] Bilirubin Test strip Ql (U)O rdered By: Francisco Colon on 04-11-2025 Bilirubin Ql (U) Negative Negative [facility] CBC W/Diff, Automatedon 03-29 Absolute Lymph 2.10 X10 3/uL Normal 0.83-4.51 [facility] Comment on above: Performed By: #### L 501.4021, L501.9100, L100.0100, L500.2500, L501.2450 ####[facility] [address] [place], [address] Absolute Neut 2.1 X10 3/uL Normal 2.0-7.7 [facility] Comment on above: Performed By: #### L 501.4021, L501.9100, L100.0100, L500.2500, L501.2450 ####[facility] [address] [place], [address] Basophils/100 WBC (Bld) 1.2 % High 0-1 [facility] Comment on above: Performed By: #### L 501.4021, L501.9100, L100.0100, L500.2500, L501.2450 ####[facility] [address] [place], [address] Eosinophils/100 WBC (Bld) 0.8 % Normal 0-5 [facility] Comment on above: Performed By: #### L 501.4021, L501.9100, L100.0100, L500.2500, L501.2450 ####[facility] [address] [place], [address] Erythrocyte distribution width (RBC) [Ratio] 13.5 % Normal 11.6-14.6 [facility] Comment on above: Performed By: #### L 501.4021, L501.9100, L100.0100, L500.2500, L501.2450 ####[facility] [address] [place], [address] Hematocrit (Bld) [Volume fraction] 37.7 % Normal 37-47 [facility] Comment on above: Performed By: #### L 501.4021, L501.9100, L100.0100, L500.2500, L501.2450 ####[facility] [address] [place], [address] Hemoglobin (Bld) [Mass/Vol] 13.5 g/dL Normal 12.0-15.0 [facility] Comment on above: Performed By: #### L 501.4021, L501.9100, L100.0100, L500.2500, L501.2450 ####[facility] [address] [place], [address] IG% 0.200 Normal 0.0-0.9 [facility] Comment on above: Result Comment: IG% - Immature Granulocytes (promyelocytes, myelocytes andmetamyelocytes) > 1% indicates that a LEFT SHIFT is Present. Performed By: #### L 501.4021, L501.9100, L100.0100, L500.2500, L501.2450 ####[facility] [address] [place], [address] Lymphocytes/100 WBC (Bld) 42.0 % High 19-41 [facility] Comment on above: Performed By: #### L 501.4021, L501.9100, L100.0100, L500.2500, L501.2450 ####[facility] [address] [place], [address] MCH (RBC) [Entitic mass] 37.4 pg High 27.0-32.0 [facility] Comment on above: Performed By: #### L 501.4021, L501.9100, L100.0100, L500.2500, L501.2450 ####[facility] [address] [place], [address] MCHC (RBC) [Mass/Vol] 35.8 g/dL Normal 32-36 [facility] [place] Comment on above: Performed By: #### L 501.4021, L501.9100, L100.0100, L500.2500, L501.2450 ####[facility] [address] [place], [address] MCV (RBC) [Entitic vol] 104.4 fL High 81-99 [facility] Comment on above: Performed By: #### L 501.4021, L501.9100, L100.0100, L500.2500, L501.2450 ####[facility] [address] [place], [address] Monocytes/100 WBC (Bld) 13.2 % High 0-10 [facility] Comment on above: Performed By: #### L 501.4021, L501.9100, L100.0100, L500.2500, L501.2450 ####[facility] [address] [place], [address] Neutrophils/100 WBC (Bld) 42.6 % Low 47-70 [facility] Comment on above: Performed By: #### L 501.4021, L501.9100, L100.0100, L500.2500, L501.2450 ####[facility] [address] [place], [address] Nucleated RBC (Bld) [#/Vol] 0.4 10*3/uL Normal 0-5 [facility] Comment on above: Performed By: #### L 501.4021, L501.9100, L100.0100, L500.2500, L501.2450 ####[facility] [address] [place], [address] Platelet mean volume (Bld) [Entitic vol] 9.6 fL Normal 6.2-12.0 [facility] Comment on above: Performed By: #### L 501.4021, L501.9100, L100.0100, L500.2500, L501.2450 ####[facility] [address] [place], [address] Platelets (Bld) [#/Vol] 246 10*3/uL Normal 150-450 [facility] Comment on above: Performed By: #### L 501.4021, L501.9100, L100.0100, L500.2500, L501.2450 ####[facility] [address] [place], [address] RBC (Bld) [#/Vol] 3.61 10*6/uL Low 4.2-5.4 [facility] Comment on above: Performed By: #### L 501.4021, L501.9100, L100.0100, L500.2500, L501.2450 ####[facility] [address] [place], [address] RDW SD 51.4 fl High 35.1-43.9 [facility] Comment on above: Performed By: #### L 501.4021, L501.9100, L100.0100, L500.2500, L501.2450 ####[facility] [address] [place], [address] WBC (Bld) [#/Vol] 5.0 10*3/uL Normal 4.4-11.0 [facility] Comment on above: Performed By: #### L 501.4021, L501.9100, L100.0100, L500.2500, L501.2450 ####[facility] [address] [place], [address] Carbon dioxide, total [Moles /volume] in Central venous bloodOrdered By: Francisco Colon on 04-11-2025 CO2 [Moles/Vol] 28.2 mmol/L 21.0-32.0 [facility] Chest PA and Lateralon 04-11 Chest PA and Lateral Normal [facility] Chloride assayOrdered By: Peyman Colon on 04-11-2025 Chloride [Moles/Vol] 100 mmol/L 98-108 [facility] Emergency Department Summary on 04-11-2025 Emergency Department Summary Normal [facility] Eosinophil percentageOrdered By: Francisco Colon on 04-11-2025 Eosinophils/100 WBC (Bld) 0.8 % 0-5 [facility] Erythrocyte distribution wid th ratioOrdered By: Francisco Colon on 04-11-2025 Erythrocyte distribution width (RBC) [Ratio] 13.5 % 11.6-14.6 [facility] Erythrocyte distribution wid th standard deviationOrdered By: Francisco Colon on 04-11-2025 Erythrocyte distribution width (RBC) [Ratio] 51.4 fl High 35.1-43.9 [facility] Glomerular filtration rate ( GFR) estimation/1.73 sq m using serum, plasma, or whole bOrdered By: Francisco Colon on 04-11-2025 GFR/1.73 sq M.predicted among non-blacks MDRD (S/P/Bld) [Vol rate/Area] 114 mL/min/{1.73_m2} >60 [facility] Comment on above: mL/min/1.73m2 CKD-EP I Creatinine Equation (2020) Hematocrit Auto (Bld) [Volum e fraction]Ordered By: Francisco Colon on 04-11-2025 Hematocrit (Bld) [Volume fraction] 37.7 % 37-47 [facility] Hemoglobin measurementOrdere d By: Francisco Colon on 04-11-2025 Hemoglobin (Bld) [Mass/Vol] 13.5 g/dL 12.0-15.0 [facility] Immature granulocytes/100 WB C Auto (Bld)Ordered By: Francisco Colon on 04-11-2025 Immature granulocytes/100 WBC (Bld) 0.200 % 0.0-0.9 [facility] Comment on above: IG% - Immature Granu locytes (promyelocytes, myelocytes and metamyelocytes) > 1% indicates that a LEFT SHIFT is Present. Ketones Test strip Ql (U)Ord ered By: Francisco Colon on 04-11-2025 Ketones Ql (U) Negative Negative [facility] L501.4021on 04-11-2025 Trop T High Sen < 6 Normal <=14 [facility] Comment on above: Performed By: #### L 501.4021, L501.9100, L100.0100, L500.2500, L501.2450 ####[facility] [address] [place], [place], [id number] Lipaseon 04-11-2025 Lipase [Catalytic activity/Vol] 70 U/L Normal 13-75 [facility] Comment on above: Result Comment: Lucie schultz note:LIPASE revised reference range effective 23.New Lipase methodology. Expected to produce lower valuesthan the previous assay method.NEW Reference Range: 13 - 75 U/L Performed By: #### L 501.4021, L501.9100, L100.0100, L500.2500, L501.2450 ####[facility] [address] [place], [address] Lipase measurementOrdered By : Francisco Colon on 04-11-2025 Lipase [Catalytic activity/Vol] 70 U/L 13-75 [facility] Comment on above: Please note:LIPASE r evised reference range effective 23. New Lipase methodology. Expected to produce lower values than the previous assay method. NEW Reference Range: 13 - 75 U/L MCV (mean corpuscular volume ) determinationOrdered By: Francisco Colon on 04-11-2025 MCV (RBC) [Entitic vol] 104.4 fL High 81-99 [facility] Mean corpuscular hemoglobin (MCH) determinationOrdered By: Francisco Colon on 04-11-2025 MCH (RBC) [Entitic mass] 37.4 pg High 27.0-32.0 [facility] Mean corpuscular hemoglobin concentration (MCHC) determinationOrdered By: Francisco Colon on 04-11-2025 MCHC (RBC) [Mass/Vol] 35.8 g/dL 32-36 [facility] [place] Mean platelet volume determi nationOrdered By: Francisco Colon on 04-11-2025 Platelet mean volume (Bld) [Entitic vol] 9.6 fL 6.2-12.0 [facility] Microscopic analysis of urin e for red blood cells (RBC)Ordered By: Francisco Colon on 04-11-2025 Microscopic analysis of urine for red blood cells (RBC) 0 SEEN /hpf 0-5 [facility] Monocyte percentageOrdered B y: Francisco Colon on 04-11-2025 Monocytes/100 WBC (Bld) 13.2 % High 0-10 [facility] Mucus LM Ql (Urine sed)Order ed By: Francisco Colon on 04-11-2025 Mucus Ql (Urine sed) 0 SEEN /hpf [facility] [place] Neutrophil percentageOrdered By: Francisco Colon on 04-11-2025 Neutrophils/100 WBC (Bld) 42.6 % Low 47-70 [facility] Nitrite Test strip Ql (U)Ord ered By: Francisco Colon on 04-11-2025 Nitrite Ql (U) Negative Negative [facility] Nucleated red blood cell per centageOrdered By: Francisco Colon on 04-11-2025 Nucleated RBC/100 WBC (Bld) [Ratio] 0.4 % 0-5 [facility] Platelet countOrdered By: Peyman Colon on 04-11-2025 Platelets (Bld) [#/Vol] 246 10*3/uL 150-450 [facility] Potassium measurement (mass/ volume)Ordered By: Francisco Colon on 04-11-2025 Potassium (Unsp spec) [Mass/Vol] 3.2 mmol/L Low 3.3-5.1 [facility] Protein Test strip Ql (U)Ord ered By: Francisco Colon on 04-11-2025 Protein Ql (U) 15 mg/dl High Negative [facility] RBC Auto (Bld) [#/Vol]Ordere d By: Francisco Colon on 04-11-2025 RBC (Bld) [#/Vol] 3.61 10*6/uL Low 4.2-5.4 [facility] Serum creatinine measurement (mass/volume)Ordered By: Francisco Colon on 04-11-2025 Creatinine [Mass/Vol] 0.53 mg/dL Low 0.70-1.20 [facility] [place] Serum glucose measurement (m ass/volume)Ordered By: Francisco Colon on 04-11-2025 Glucose [Mass/Vol] 131 mg/dL High 70-99 [facility] Serum or plasma calcium alphonso urement (mass/volume)Ordered By: Francisco Colon on 04-11-2025 Calcium [Mass/Vol] 8.8 mg/dL 7.6-11.0 [facility] Serum or plasma ethanol alphonso urement (mass/volume)Ordered By: Francisco Colon on 04-11-2025 Ethanol [Mass/Vol] 328.0 mg/dL High <10.1 [facility] Comment on above: Critical Result(s) C alled at:2346 by: LUISITO SONI TO CELINA LUJAN Results read back by same.This test is for medical purposes only. The legal definition of intoxication varies according to local law. Serum or plasma urea nitroge n measurement (mass/volume)Ordered By: Francisco Colon on 04-11-2025 Urea nitrogen [Mass/Vol] 11 mg/dL 4-19 [facility] Sodium levelOrdered By: Francisco Colon on 04-11-2025 Sodium [Moles/Vol] 144 mmol/L 133-145 [facility] Squamous epithelial cells de tection in urine sediment by light microscopyOrdered By: Francisco Colon on 04-11-2025 Epithelial cells.squamous LM Ql (Urine sed) 0 SEEN /hpf 5-10 [facility] Troponin T.cardiac [Mass/vol ume] in Serum or Plasma by High sensitivity methodOrdered By: Francisco Colon on 04-11-2025 Troponin T.cardiac High sensitivity method [Mass/Vol] < 6 ng/L <14 [facility] Urinalysis, Completeon 04-11 BACTERIA 0 SEEN Normal None Seen [facility] Comment on above: Order Comment: [place] CTOR TO SPECIFY Performed By: #### L 400.0001 ####[facility] [address] [place], [address] EPI,SQUAMOUS 0 SEEN Normal 5-10 [facility] Comment on above: Order Comment: [place] CTOR TO SPECIFY Performed By: #### L 400.0001 ####[facility] [address] [place], [address] Mucus Ql (Urine sed) 0 SEEN Normal [facility] Comment on above: Order Comment: [place] CTOR TO SPECIFY Performed By: #### L 400.0001 ####[facility] [address] [place], [address] RBC 0 SEEN Normal 0-5 [facility] Comment on above: Order Comment: [place] CTOR TO SPECIFY Performed By: #### L 400.0001 ####[facility] [address] [place], [address] WBC 0 SEEN Normal 0-5 [facility] Comment on above: Order Comment: [place] CTOR TO SPECIFY Performed By: #### L 400.0001 ####[facility] [address] [place], [address] Urine clarityOrdered By: Rommel Colon on 04-11-2025 Clarity (U) Clear Clear [facility] Urine color determinationOrd ered By: Francisco Colon on 04-11-2025 Color (U) Yellow Yellow [facility] Urine glucose detectionOrder ed By: Francisco Colon on 04-11-2025 Glucose Ql (U) Normal mg/dl Normal [facility] Urine leukocyte esterase det ection by dipstickOrdered By: Francisco Colon on 04-11-2025 Leukocyte esterase Test strip Ql (U) Negative Negative [facility] Urine pHOrdered By: Francisco stuart on 04-11-2025 pH (U) 7.0 [pH] 5.0 - 8.0 [facility] Urine sediment bacteria coun t by microscopy (number/high power field)Ordered By: Francisco Colon on 04-11-2025 Bacteria LM.HPF (Urine sed) [#/Area] 0 /[HPF] None Seen [facility] Urine specific gravity measu rementOrdered By: Francisco Colon on 04-11-2025 Specific gravity (U) [Rel density] 1.010 1.002-1.030 [facility] Urine urobilinogen measureme ntOrdered By: Francisco Colon on 04-11-2025 Urobilinogen Ql (U) Normal mg/dl Normal [facility] [place] White blood cell (WBC) count Ordered By: Francisco Colon on 04-11-2025 WBC (Bld) [#/Vol] 5.0 10*3/uL 4.4-11.0 [facility] White blood cell countOrdere d By: Francisco Colon on 04-11-2025 White blood cell count 0 SEEN /hpf 0-5 [facility] 12 Lead EKGon 04-04-2025 12 Lead EKG Normal [facility] Abdomen/Pelvis W IV Cont ONL Yon 04-04-2025 Abdomen/Pelvis W IV Cont ONLY Normal [facility] Absolute lymphocyte countOrd ered By: ED PROVIDER on 04-04-2025 Lymphocytes Auto (Unsp spec) [#/Vol] 1.23 10*3/uL 0.83-4.51 [facility] Absolute neutrophil countOrd ered By: ED PROVIDER on 04-04-2025 Neutrophils (Bld) [#/Vol] 6.8 10*3/uL 2.0-7.7 [facility] Anion gap in Serum or Plasma Ordered By: Imani Knight on 04-04-2025 Anion gap [Moles/Vol] 18 mmol/L High 5-15 [facility] Automated lymphocyte count a s percentage of total leukocytesOrdered By: ED PROVIDER on 04-04-2025 Lymphocytes/100 WBC Auto (Unsp spec) 14.0 % Low 19-41 [facility] BUN/creatinine ratioOrdered By: Imani Knight on 04-04-2025 Urea nitrogen/Creatinine [Mass ratio] 8.7 mg/mg Low 10-20 [facility] Basic Metabolic Profile (BMP )on 04-04-2025 BUN/CRE 8.7 RATIO Low 10-20 [facility] Comment on above: Performed By: #### L 100.0100, L500.2500, L501.4021 ####[facility] [address] [place], [address] Calcium [Mass/Vol] 8.4 mg/dL Normal 7.6-11.0 [facility] Comment on above: Performed By: #### L 100.0100, L500.2500, L501.4021 ####[facility] [address] [place], [address] Chloride [Moles/Vol] 94 mmol/L Low 98-108 [facility] Comment on above: Performed By: #### L 100.0100, L500.2500, L501.4021 ####[facility] [address] [place], [address] CO2 [Moles/Vol] 27.3 mmol/L Normal 21.0-32.0 [facility] Comment on above: Performed By: #### L 100.0100, L500.2500, L501.4021 ####[facility] [address] [place], [address] Creatinine [Mass/Vol] 0.55 mg/dL Low 0.70-1.20 [facility] [place] Comment on above: Performed By: #### L 100.0100, L500.2500, L501.4021 ####[facility] [address] [place], [address] GAP 18 High 5-15 [facility] Comment on above: Performed By: #### L 100.0100, L500.2500, L501.4021 ####[facility] [address] [place], [address] GFR/1.73 sq M.predicted among non-blacks MDRD (S/P/Bld) [Vol rate/Area] 113 mL/min/{1.73_m2} Normal >60 [facility] Comment on above: Result Comment: mL/m in/1.73m2 CKD-EPI Creatinine Equation (2020) Performed By: #### L 100.0100, L500.2500, L501.4021 ####[facility] [address] [place], [address] Glucose [Mass/Vol] 131 mg/dL High 70-99 [facility] Comment on above: Performed By: #### L 100.0100, L500.2500, L501.4021 ####[facility] [address] [place], [address] Potassium [Moles/Vol] 2.9 mmol/L Low 3.3-5.1 [facility] [place] Comment on above: Performed By: #### L 100.0100, L500.2500, L501.4021 ####[facility] [address] [place], [address] Sodium [Moles/Vol] 139 mmol/L Normal 133-145 [facility] Comment on above: Performed By: #### L 100.0100, L500.2500, L501.4021 ####[facility] [address] [place], [address] Urea nitrogen [Mass/Vol] 5 mg/dL Normal 4-19 [facility] Comment on above: Performed By: #### L 100.0100, L500.2500, L501.4021 ####[facility] [address] [place], [address] Basophil percentageOrdered B y: ED PROVIDER on 04-04-2025 Basophils/100 WBC (Bld) 0.7 % 0-1 [facility] Bilirubin directOrdered By: Imani Knight on 04-04-2025 Bilirubin.direct [Mass/Vol] 0.67 mg/dL High 0.00-0.30 [facility] Bilirubin, totalOrdered By: Imani Knight on 04-04-2025 Bilirubin [Mass/Vol] 1.26 mg/dL 0.00-1.30 [facility] CBC W/Diff, Automatedon Absolute Lymph 1.23 X10 3/uL Normal 0.83-4.51 [facility] Comment on above: Performed By: #### L 100.0100, L500.2500, L501.4021 ####[facility] [address] [place], [address] Absolute Neut 6.8 X10 3/uL Normal 2.0-7.7 [facility] Comment on above: Performed By: #### L 100.0100, L500.2500, L501.4021 ####[facility] [address] [place], [address] Basophils/100 WBC (Bld) 0.7 % Normal 0-1 [facility] Comment on above: Performed By: #### L 100.0100, L500.2500, L501.4021 ####[facility] [address] [place], [address] Eosinophils/100 WBC (Bld) 0.2 % Normal 0-5 [facility] Comment on above: Performed By: #### L 100.0100, L500.2500, L501.4021 ####[facility] [address] [place], [address] Erythrocyte distribution width (RBC) [Ratio] 13.5 % Normal 11.6-14.6 [facility] Comment on above: Performed By: #### L 100.0100, L500.2500, L501.4021 ####[facility] [address] [place], [address] Hematocrit (Bld) [Volume fraction] 40.3 % Normal 37-47 [facility] Comment on above: Performed By: #### L 100.0100, L500.2500, L501.4021 ####[facility] [address] [place], [address] Hemoglobin (Bld) [Mass/Vol] 14.3 g/dL Normal 12.0-15.0 [facility] Comment on above: Performed By: #### L 100.0100, L500.2500, L501.4021 ####[facility] [address] [place], [address] IG% 0.300 Normal 0.0-0.9 [facility] Comment on above: Result Comment: IG% - Immature Granulocytes (promyelocytes, myelocytes andmetamyelocytes) > 1% indicates that a LEFT SHIFT is Present. Performed By: #### L 100.0100, L500.2500, L501.4021 ####[facility] [address] [place], [address] Lymphocytes/100 WBC (Bld) 14.0 % Low 19-41 [facility] Comment on above: Performed By: #### L 100.0100, L500.2500, L501.4021 ####[facility] [address] [place], [address] MCH (RBC) [Entitic mass] 35.4 pg High 27.0-32.0 [facility] Comment on above: Performed By: #### L 100.0100, L500.2500, L501.4021 ####[facility] [address] [place], [address] MCHC (RBC) [Mass/Vol] 35.5 g/dL Normal 32-36 [facility] [place] Comment on above: Performed By: #### L 100.0100, L500.2500, L501.4021 ####[facility] [address] [place], [address] MCV (RBC) [Entitic vol] 99.8 fL High 81-99 [facility] Comment on above: Performed By: #### L 100.0100, L500.2500, L501.4021 ####[facility] [address] [place], [address] Monocytes/100 WBC (Bld) 7.8 % Normal 0-10 [facility] Comment on above: Performed By: #### L 100.0100, L500.2500, L501.4021 ####[facility] [address] [place], [address] Neutrophils/100 WBC (Bld) 77.0 % High 47-70 [facility] Comment on above: Performed By: #### L 100.0100, L500.2500, L501.4021 ####[facility] [address] [place], [address] Nucleated RBC (Bld) [#/Vol] 0.2 10*3/uL Normal 0-5 [facility] Comment on above: Performed By: #### L 100.0100, L500.2500, L501.4021 ####[facility] [address] [place], [address] Platelet mean volume (Bld) [Entitic vol] 10.0 fL Normal 6.2-12.0 [facility] Comment on above: Performed By: #### L 100.0100, L500.2500, L501.4021 ####[facility] [address] [place], [address] Platelets (Bld) [#/Vol] 186 10*3/uL Normal 150-450 [facility] Comment on above: Performed By: #### L 100.0100, L500.2500, L501.4021 ####[facility] [address] [place], [address] RBC (Bld) [#/Vol] 4.04 10*6/uL Low 4.2-5.4 [facility] Comment on above: Performed By: #### L 100.0100, L500.2500, L501.4021 ####[facility] [address] [place], [address] RDW SD 50.3 fl High 35.1-43.9 [facility] Comment on above: Performed By: #### L 100.0100, L500.2500, L501.4021 ####[facility] [address] [place], [address] WBC (Bld) [#/Vol] 8.8 10*3/uL Normal 4.4-11.0 [facility] Comment on above: Performed By: #### L 100.0100, L500.2500, L501.4021 ####[facility] [address] [place], [address] Carbon dioxide, total [Moles /volume] in Central venous bloodOrdered By: Imani Knight on 04-04-2025 CO2 [Moles/Vol] 27.3 mmol/L 21.0-32.0 [facility] Chest 1 View (Portable)on Chest 1 View (Portable) Normal [facility] Chloride assayOrdered By: Nash Knight on 04-04-2025 Chloride [Moles/Vol] 94 mmol/L Low 98-108 [facility] Emergency Department Summary on 04-04-2025 Emergency Department Summary Normal [facility] Eosinophil percentageOrdered By: ED PROVIDER on 04-04-2025 Eosinophils/100 WBC (Bld) 0.2 % 0-5 [facility] Erythrocyte distribution wid th ratioOrdered By: ED PROVIDER on 04-04-2025 Erythrocyte distribution width (RBC) [Ratio] 13.5 % 11.6-14.6 [facility] Erythrocyte distribution wid th standard deviationOrdered By: ED PROVIDER on 04-04-2025 Erythrocyte distribution width (RBC) [Ratio] 50.3 fl High 35.1-43.9 [facility] Glomerular filtration rate ( GFR) estimation/1.73 sq m using serum, plasma, or whole bOrdered By: Imani Knight on 04-04-2025 GFR/1.73 sq M.predicted among non-blacks MDRD (S/P/Bld) [Vol rate/Area] 113 mL/min/{1.73_m2} >60 [facility] Comment on above: mL/min/1.73m2 CKD-EP I Creatinine Equation (2020) Hematocrit Auto (Bld) [Volum e fraction]Ordered By: ED PROVIDER on 04-04-2025 Hematocrit (Bld) [Volume fraction] 40.3 % 37-47 [facility] Hemoglobin measurementOrdere d By: ED PROVIDER on 04-04-2025 Hemoglobin (Bld) [Mass/Vol] 14.3 g/dL 12.0-15.0 [facility] Immature granulocytes/100 WB C Auto (Bld)Ordered By: ED PROVIDER on 04-04-2025 Immature granulocytes/100 WBC (Bld) 0.300 % 0.0-0.9 [facility] Comment on above: IG% - Immature Granu locytes (promyelocytes, myelocytes and metamyelocytes) > 1% indicates that a LEFT SHIFT is Present. L499.0042on 04-04-2025 Trop T High Sen < 6 Normal <=14 [facility] Comment on above: Performed By: #### L 499.0042 ####[facility] [address] [place], [address] L499.0043on 04-04-2025 Trop T High Sen Normal <=14 [facility] Comment on above: Result Comment: CHUY ENT DISCHARGED Performed By: #### L 499.0043 ####[facility] [address] [place], [address] L501.4021on 04-04-2025 Trop T High Sen < 6 Normal <=14 [facility] Comment on above: Performed By: #### L 100.0100, L500.2500, L501.4021 ####[facility] [address] [place], [address] Laboratory - Chemistry and C hemistry - challengeOrdered By: Imani Knight on 04-04-2025 AST [Catalytic activity/Vol] 75 U/L High <32 [facility] Lipaseon 04-04-2025 Lipase [Catalytic activity/Vol] 26 U/L Normal 13-75 [facility] Comment on above: Result Comment: Lucie schultz note:LIPASE revised reference range effective 23.New Lipase methodology. Expected to produce lower valuesthan the previous assay method.NEW Reference Range: 13 - 75 U/L Performed By: #### L 501.2450, L500.3400, L501.5200 ####[facility] [address] [place], [address] Lipase measurementOrdered By : Imani Knight on 04-04-2025 Lipase [Catalytic activity/Vol] 26 U/L 13-75 [facility] Comment on above: Please note:LIPASE r evised reference range effective 23. New Lipase methodology. Expected to produce lower values than the previous assay method. NEW Reference Range: 13 - 75 U/L Liver Profileon 04-04-2025 Albumin [Mass/Vol] 4.1 g/dL Normal 3.5-5.0 [facility] Comment on above: Performed By: #### L 501.2450, L500.3400, L501.5200 ####[facility] [address] [place], [address] ALK PHOS 91 U/L Normal 35-104 [facility] Comment on above: Performed By: #### L 501.2450, L500.3400, L501.5200 ####[facility] [address] [place], [address] ALT [Catalytic activity/Vol] 44 U/L High <=34 [facility] Comment on above: Performed By: #### L 501.2450, L500.3400, L501.5200 ####[facility] [address] [place], [address] AST [Catalytic activity/Vol] 75 U/L High <=31 [facility] Comment on above: Performed By: #### L 501.2450, L500.3400, L501.5200 ####[facility] [address] [place], [address] Bilirubin [Mass/Vol] 1.26 mg/dL Normal 0.00-1.30 [facility] Comment on above: Performed By: #### L 501.2450, L500.3400, L501.5200 ####[facility] [address] [place], [address] Bilirubin.direct [Mass/Vol] 0.67 mg/dL High 0.00-0.30 [facility] Comment on above: Performed By: #### L 501.2450, L500.3400, L501.5200 ####[facility] [address] [place], [address] Globulin (S) [Mass/Vol] 3.3 g/dL Normal 2.2-4.2 [facility] Comment on above: Performed By: #### L 501.2450, L500.3400, L501.5200 ####[facility] [address] [place], [address] T PROT 7.3 g/dL Normal 5.9-8.4 [facility] Comment on above: Performed By: #### L 501.2450, L500.3400, L501.5200 ####[facility] [address] [place], [address] MCV (mean corpuscular volume ) determinationOrdered By: ED PROVIDER on 04-04-2025 MCV (RBC) [Entitic vol] 99.8 fL High 81-99 [facility] Magnesiumon 04-04-2025 Magnesium [Mass/Vol] 0.6 mg/dL Invalid Interpretation Code 1.5-2.2 [facility] Comment on above: Result Comment: Crit ical Result(s) Called at: 04/04/2025-12:09 by: Francesco Burtonssandra Gurinder.??Results read back by same. Performed By: #### L 501.2450, L500.3400, L501.5200 ####[facility] [address] [place], [address] Magnesium measurement (mass/ volume)Ordered By: Imani Knight on 04-04-2025 Magnesium (Unsp spec) [Mass/Vol] 0.6 mg/dL Low 1.5-2.2 [facility] Comment on above: Critical Result(s) C alled at: 04/04/2025-12:09 by: Ru Null to Meredith Fairchild. Results read back by same. Mean corpuscular hemoglobin (MCH) determinationOrdered By: ED PROVIDER on 04-04-2025 MCH (RBC) [Entitic mass] 35.4 pg High 27.0-32.0 [facility] Mean corpuscular hemoglobin concentration (MCHC) determinationOrdered By: ED PROVIDER on 04-04-2025 MCHC (RBC) [Mass/Vol] 35.5 g/dL 32-36 [facility] Mean platelet volume determi nationOrdered By: ED PROVIDER on 04-04-2025 Platelet mean volume (Bld) [Entitic vol] 10.0 fL 6.2-12.0 [facility] Monocyte percentageOrdered B y: ED PROVIDER on 04-04-2025 Monocytes/100 WBC (Bld) 7.8 % 0-10 [facility] Neutrophil percentageOrdered By: ED PROVIDER on 04-04-2025 Neutrophils/100 WBC (Bld) 77.0 % High 47-70 [facility] No Panel InformationOrdered By: Imani Knight on 04-04-2025 75 U/L High <32 [facility] Nucleated red blood cell per centageOrdered By: ED PROVIDER on 04-04-2025 Nucleated RBC/100 WBC (Bld) [Ratio] 0.2 % 0-5 [facility] Platelet countOrdered By: ED PROVIDER on 04-04-2025 Platelets (Bld) [#/Vol] 186 10*3/uL 150-450 [facility] Potassium measurement (mass/ volume)Ordered By: Imani Knight on 04-04-2025 Potassium (Unsp spec) [Mass/Vol] 2.9 mmol/L Low 3.3-5.1 [facility] RBC Auto (Bld) [#/Vol]Ordere d By: ED PROVIDER on 04-04-2025 RBC (Bld) [#/Vol] 4.04 10*6/uL Low 4.2-5.4 [facility] Serum creatinine measurement (mass/volume)Ordered By: Imani Knight on 04-04-2025 Creatinine [Mass/Vol] 0.55 mg/dL Low 0.70-1.20 [facility] Serum globulin measurementOr dered By: Imani Knight on 04-04-2025 Globulin (S) [Mass/Vol] 3.3 g/dL 2.2-4.2 [facility] Serum glucose measurement (m ass/volume)Ordered By: Imani Knight on 04-04-2025 Glucose [Mass/Vol] 131 mg/dL High 70-99 [facility] Serum or plasma alanine wilkerson otransferase (ALT) measurementOrdered By: Imani Knight on 04-04-2025 ALT [Catalytic activity/Vol] 44 U/L High <35 [facility] Serum or plasma albumin alphonso urement (mass/volume)Ordered By: Imani Knight on 04-04-2025 Albumin [Mass/Vol] 4.1 g/dL 3.5-5.0 [facility] Serum or plasma alkaline trinity sphatase measurementOrdered By: Imani Knight on 04-04-2025 ALP [Catalytic activity/Vol] 91 U/L 35-104 [facility] Serum or plasma calcium alphonso urement (mass/volume)Ordered By: Imani Knight on 04-04-2025 Calcium [Mass/Vol] 8.4 mg/dL 7.6-11.0 [facility] Serum or plasma urea nitroge n measurement (mass/volume)Ordered By: Imani Knight on 04-04-2025 Urea nitrogen [Mass/Vol] 5 mg/dL 4-19 [facility] Sodium levelOrdered By: Radha Knight on 04-04-2025 Sodium [Moles/Vol] 139 mmol/L 133-145 [facility] Total proteinOrdered By: Gwen Knight on 04-04-2025 Protein [Mass/Vol] 7.3 g/dL 5.9-8.4 [facility] Troponin T.cardiac [Mass/vol ume] in Serum or Plasma by High sensitivity methodOrdered By: Imani Knight on 04-04-2025 Troponin T.cardiac High sensitivity method [Mass/Vol] < 6 ng/L <14 [facility] Troponin T.cardiac High sensitivity method [Mass/Vol] < 6 ng/L <14 [facility] White blood cell (WBC) count Ordered By: ED PROVIDER on 04-04-2025 WBC (Bld) [#/Vol] 8.8 10*3/uL 4.4-11.0 [facility] 12 Lead EKGon 11-12-2024 12 Lead EKG Normal [facility] Basic Metabolic Profile (BMP )on 11-12-2024 BUN/CRE 23.8 RATIO High 10-20 [facility] Comment on above: Order Comment: 1Y Performed By: #### L 501.5425, L300.8000, L500.2500, L700.6800, L100.0100, L501.5200 ####[facility] [address] [place], [address] CA,Total 8.1 mg/dL Low 8.5-10.1 [facility] Comment on above: Order Comment: 1Y Performed By: #### L 501.5425, L300.8000, L500.2500, L700.6800, L100.0100, L501.5200 ####[facility] [address] [place], [address] Chloride [Moles/Vol] 99 mmol/L Normal 98-107 [facility] Comment on above: Order Comment: 1Y Performed By: #### L 501.5425, L300.8000, L500.2500, L700.6800, L100.0100, L501.5200 ####[facility] [address] [place], [address] CO2 [Moles/Vol] 27.0 mmol/L Normal 21.0-32.0 [facility] Comment on above: Order Comment: 1Y Performed By: #### L 501.5425, L300.8000, L500.2500, L700.6800, L100.0100, L501.5200 ####[facility] [address] [place], [address] Creatinine [Mass/Vol] 0.59 mg/dL Normal 0.55-1.02 [facility] Comment on above: Order Comment: 1Y Result Comment: The validity of the calculated GFR GFRAA in patients over70 years has not been determined. Clinical correlation isessential. Performed By: #### L 501.5425, L300.8000, L500.2500, L700.6800, L100.0100, L501.5200 ####[facility] [address] [place], [address] ECRCL 112.29 ml/min Normal [facility] Comment on above: Order Comment: 1Y Performed By: #### L 501.5425, L300.8000, L500.2500, L700.6800, L100.0100, L501.5200 ####[facility] [address] [place], [address] EST GFR - AA 140 mL/min Normal >60 [facility] Comment on above: Order Comment: 1Y Result Comment: Afri can Pakistani GFR Calc Performed By: #### L 501.5425, L300.8000, L500.2500, L700.6800, L100.0100, L501.5200 ####[facility] [address] [place], [address] GAP 9 Normal 5-15 [facility] Comment on above: Order Comment: 1Y Performed By: #### L 501.5425, L300.8000, L500.2500, L700.6800, L100.0100, L501.5200 ####[facility] [address] [place], [address] GFR/1.73 sq M.predicted among non-blacks MDRD (S/P/Bld) [Vol rate/Area] 116 mL/min/{1.73_m2} Normal >60 [facility] Comment on above: Order Comment: 1Y Result Comment: Non- GFR Calc Performed By: #### L 501.5425, L300.8000, L500.2500, L700.6800, L100.0100, L501.5200 ####[facility] [address] [place], [address] Glucose [Mass/Vol] 131 mg/dL High 74-106 [facility] Comment on above: Order Comment: 1Y Result Comment: Fast ing Glucose result greater than or equal to 126 mg/dLsuggests DIABETES MELLITUS per A.D.A. criteria. Performed By: #### L 501.5425, L300.8000, L500.2500, L700.6800, L100.0100, L501.5200 ####[facility] [address] [place], [address] Potassium [Moles/Vol] 3.7 mmol/L Normal 3.5-5.1 [facility] Comment on above: Order Comment: 1Y Performed By: #### L 501.5425, L300.8000, L500.2500, L700.6800, L100.0100, L501.5200 ####[facility] [address] [place], [address] Sodium [Moles/Vol] 135 mmol/L Low 136-145 [facility] Comment on above: Order Comment: 1Y Performed By: #### L 501.5425, L300.8000, L500.2500, L700.6800, L100.0100, L501.5200 ####[facility] [address] [place], [address] Urea nitrogen [Mass/Vol] 14 mg/dL Normal 7-18 [facility] Comment on above: Order Comment: 1Y Performed By: #### L 501.5425, L300.8000, L500.2500, L700.6800, L100.0100, L501.5200 ####[facility] [address] [place], [address] CBC W/Diff, Automatedon 10-29-2023 Absolute Lymph 1.29 X10 3/uL Normal 0.83-4.51 [facility] Comment on above: Performed By: #### L 501.5425, L300.8000, L500.2500, L700.6800, L100.0100, L501.5200 ####[facility] [address] [place], [address] Absolute Neut 6.5 X10 3/uL Normal 2.0-7.7 [facility] Comment on above: Performed By: #### L 501.5425, L300.8000, L500.2500, L700.6800, L100.0100, L501.5200 ####[facility] [address] [place], [address] Basophils/100 WBC (Bld) 0.5 % Normal 0-1 [facility] Comment on above: Performed By: #### L 501.5425, L300.8000, L500.2500, L700.6800, L100.0100, L501.5200 ####[facility] [address] [place], [address] Eosinophils/100 WBC (Bld) 1.2 % Normal 0-5 [facility] Comment on above: Performed By: #### L 501.5425, L300.8000, L500.2500, L700.6800, L100.0100, L501.5200 ####[facility] [address] [place], [address] Erythrocyte distribution width (RBC) [Ratio] 13.1 % Normal 11.6-14.6 [facility] Comment on above: Performed By: #### L 501.5425, L300.8000, L500.2500, L700.6800, L100.0100, L501.5200 ####[facility] [address] [place], [address] Hematocrit (Bld) [Volume fraction] 37.7 % Normal 37-47 [facility] Comment on above: Performed By: #### L 501.5425, L300.8000, L500.2500, L700.6800, L100.0100, L501.5200 ####[facility] [address] [place], [address] Hemoglobin (Bld) [Mass/Vol] 12.9 g/dL Normal 12.0-15.0 [facility] Comment on above: Performed By: #### L 501.5425, L300.8000, L500.2500, L700.6800, L100.0100, L501.5200 ####[facility] [address] [place], [address] IG% 0.200 Normal 0.0-0.9 [facility] Comment on above: Result Comment: IG% - Immature Granulocytes (promyelocytes, myelocytes andmetamyelocytes) > 1% indicates that a LEFT SHIFT is Present. Performed By: #### L 501.5425, L300.8000, L500.2500, L700.6800, L100.0100, L501.5200 ####[facility] [address] [place], [address] Lymphocytes/100 WBC (Bld) 15.1 % Low 19-41 [facility] Comment on above: Performed By: #### L 501.5425, L300.8000, L500.2500, L700.6800, L100.0100, L501.5200 ####[facility] [address] [place], [address] MCH (RBC) [Entitic mass] 33.7 pg High 27.0-32.0 [facility] Comment on above: Performed By: #### L 501.5425, L300.8000, L500.2500, L700.6800, L100.0100, L501.5200 ####[facility] [address] [place], [address] MCHC (RBC) [Mass/Vol] 34.2 g/dL Normal 32-36 [facility] [place] Comment on above: Performed By: #### L 501.5425, L300.8000, L500.2500, L700.6800, L100.0100, L501.5200 ####[facility] [address] [place], [address] MCV (RBC) [Entitic vol] 98.4 fL Normal 81-99 [facility] Comment on above: Performed By: #### L 501.5425, L300.8000, L500.2500, L700.6800, L100.0100, L501.5200 ####[facility] [address] [place], [address] Monocytes/100 WBC (Bld) 6.9 % Normal 0-10 [facility] Comment on above: Performed By: #### L 501.5425, L300.8000, L500.2500, L700.6800, L100.0100, L501.5200 ####[facility] [address] [place], [address] Neutrophils/100 WBC (Bld) 76.1 % High 47-70 [facility] Comment on above: Performed By: #### L 501.5425, L300.8000, L500.2500, L700.6800, L100.0100, L501.5200 ####[facility] [address] [place], [address] Nucleated RBC (Bld) [#/Vol] 0 10*3/uL Normal 0-5 [facility] Comment on above: Performed By: #### L 501.5425, L300.8000, L500.2500, L700.6800, L100.0100, L501.5200 ####[facility] [address] [place], [address] Platelet mean volume (Bld) [Entitic vol] 9.2 fL Normal 6.2-12.0 [facility] Comment on above: Performed By: #### L 501.5425, L300.8000, L500.2500, L700.6800, L100.0100, L501.5200 ####[facility] [address] [place], [address] Platelets (Bld) [#/Vol] 211 10*3/uL Normal 150-450 [facility] Comment on above: Performed By: #### L 501.5425, L300.8000, L500.2500, L700.6800, L100.0100, L501.5200 ####[facility] [address] [place], [address] RBC (Bld) [#/Vol] 3.83 10*6/uL Low 4.2-5.4 [facility] Comment on above: Performed By: #### L 501.5425, L300.8000, L500.2500, L700.6800, L100.0100, L501.5200 ####[facility] [address] [place], [address] RDW SD 46.6 fl High 35.1-43.9 [facility] Comment on above: Performed By: #### L 501.5425, L300.8000, L500.2500, L700.6800, L100.0100, L501.5200 ####[facility] [address] [place], [address] WBC (Bld) [#/Vol] 8.6 10*3/uL Normal 4.4-11.0 [facility] Comment on above: Performed By: #### L 501.5425, L300.8000, L500.2500, L700.6800, L100.0100, L501.5200 ####[facility] [address] [place], [address] CTA Chest W/WO Contraston CTA Chest W/WO Contrast Normal [facility] Chest 1 View (Portable)on Chest 1 View (Portable) Normal [facility] D-Dimer Quantitative (DVT/PE )on 11-12-2024 D-DIMER QUANT 0.74 FEU/ug/m Invalid Interpretation Code 0.27-0.49 [facility] Comment on above: Order Comment: CRITI FLORECITA VALUE CALLED TO dwogvbjbfgoqnbd84/15/24 1114 Priti Queen.RESULTS READ BACK BY same. Result Comment: D-Di clive ELEVATED (>0.49): Additional studies and clinicalassessments are indicated to conclude diagnosis of:Deep Vein Thrombosis (DVT) or Pulmonary Embolism (PE) Performed By: #### L 501.5425, L300.8000, L500.2500, L700.6800, L100.0100, L501.5200 ####[facility] [address] [place], [address] Emergency Department Summary on 11-12-2024 Emergency Department Summary Normal [facility] L501.4020on 11-12-2024 TROPONIN-I HS 6 pg/mL Normal 3.0-54.0 [facility] Comment on above: Result Comment: Plea se Note: New Test Units and Gender Specific Reference Ranges. For more information see Policy Stat Procedure [place] High Sensitivity Troponin (TNIH) and attachments. Performed By: #### L 501.4020 ####[facility] [address] [place], [address] L501.5425on 11-12-2024 TROPONIN-I HS 6 pg/mL Normal 3.0-54.0 [facility] Comment on above: Order Comment: 1Y Result Comment: Lucie schultz Note: New Test Units and Gender Specific Reference Ranges. For more information see Policy Stat Procedure [place] High Sensitivity Troponin (TNIH) and attachments. Performed By: #### L 501.5425, L300.8000, L500.2500, L700.6800, L100.0100, L501.5200 ####[facility] [address] [place], [address] Magnesiumon 11-12-2024 Magnesium [Mass/Vol] 1.1 mg/dL Low 1.6-2.6 [facility] Comment on above: Order Comment: 1Y Performed By: #### L 501.5425, L300.8000, L500.2500, L700.6800, L100.0100, L501.5200 ####[facility] [address] [place], [address] ,Serum,hCG Quali.on 11-12-2024 HCG, SERUM QUAL Negative Normal [facility] [facility] Comment on above: Performed By: #### L 501.5425, L300.8000, L500.2500, L700.6800, L100.0100, L501.5200 ####[facility] [address] [place], [address] Orthopedic Visit Reporton Orthopedic Visit Report Normal [facility] Spine Lumbar (Routine)on Spine Lumbar (Routine) Normal [facility] L/S Spine Min 4 Viewson 08-01 L/S Spine Min 4 Views Normal [facility] Orthopedic Visit Reporton Orthopedic Visit Report Normal [facility] Cardiology Visit Reporton Cardiology Visit Report Normal [facility] Comprehensive Metabolic Prof ilon 08-22-2024 Albumin [Mass/Vol] 3.6 g/dL Normal 3.2-5.0 [facility] Comment on above: Order Comment: Comme nts: okay to do nonfasting Performed By: #### L 500.4100, L500.4050 ####[facility] [address] [place], [address] Albumin/Globulin [Mass ratio] 0.9 {ratio} Normal 0.9-2.4 [facility] Comment on above: Order Comment: Comme nts: okay to do nonfasting Performed By: #### L 500.4100, L500.4050 ####[facility] [address] [place], [address] ALK P 91 U/L Normal 45-117 [facility] Comment on above: Order Comment: Comme nts: okay to do nonfasting Performed By: #### L 500.4100, L500.4050 ####[facility] [address] [place], [address] ALT [Catalytic activity/Vol] 39 U/L Normal 13-56 [facility] Comment on above: Order Comment: Comme nts: okay to do nonfasting Performed By: #### L 500.4100, L500.4050 ####[facility] [address] [place], [address] AST [Catalytic activity/Vol] 41 U/L High 15-37 [facility] Comment on above: Order Comment: Comme nts: okay to do nonfasting Performed By: #### L 500.4100, L500.4050 ####[facility] [address] [place], [address] Bilirubin [Mass/Vol] 0.50 mg/dL Normal 0.20-1.00 [facility] Comment on above: Order Comment: Comme nts: okay to do nonfasting Result Comment: For patients on eltrombopag therapy, use of Dimension [place] TBIL is not recommended. Performed By: #### L 500.4100, L500.4050 ####[facility] [address] [place], [address] BUN/CRE 11.9 RATIO Normal 10-20 [facility] Comment on above: Order Comment: Comme nts: okay to do nonfasting Performed By: #### L 500.4100, L500.4050 ####[facility] [address] [place], [address] CA,Total 9.6 mg/dL Normal 8.5-10.1 [facility] Comment on above: Order Comment: Comme nts: okay to do nonfasting Performed By: #### L 500.4100, L500.4050 ####[facility] [address] [place], [address] Chloride [Moles/Vol] 104 mmol/L Normal 98-107 [facility] Comment on above: Order Comment: Comme nts: okay to do nonfasting Performed By: #### L 500.4100, L500.4050 ####[facility] [address] [place], [address] CO2 [Moles/Vol] 27.0 mmol/L Normal 21.0-32.0 [facility] Comment on above: Order Comment: Comme nts: okay to do nonfasting Performed By: #### L 500.4100, L500.4050 ####[facility] [address] [place], [address] Creatinine [Mass/Vol] 0.67 mg/dL Normal 0.55-1.02 [facility] Comment on above: Order Comment: Comme nts: okay to do nonfasting Result Comment: The validity of the calculated GFR GFRAA in patients over70 years has not been determined. Clinical correlation isessential. Performed By: #### L 500.4100, L500.4050 ####[facility] [address] [place], [address] EST GFR - AA 121 mL/min Normal >60 [facility] Comment on above: Order Comment: Comme nts: okay to do nonfasting Result Comment: Afri can Pakistani GFR Calc Performed By: #### L 500.4100, L500.4050 ####[facility] [address] [place], [address] GAP 6 Normal 5-15 [facility] Comment on above: Order Comment: Comme nts: okay to do nonfasting Performed By: #### L 500.4100, L500.4050 ####[facility] [address] [place], [address] GFR/1.73 sq M.predicted among non-blacks MDRD (S/P/Bld) [Vol rate/Area] 100 mL/min/{1.73_m2} Normal >60 [facility] Comment on above: Order Comment: Comme nts: okay to do nonfasting Result Comment: Non- GFR Calc Performed By: #### L 500.4100, L500.4050 ####[facility] [address] [place], [address] Globulin (S) [Mass/Vol] 4.0 g/dL Normal 2.2-4.2 [facility] Comment on above: Order Comment: Comme nts: okay to do nonfasting Performed By: #### L 500.4100, L500.4050 ####[facility] [address] [place], [address] Glucose [Mass/Vol] 130 mg/dL High 74-106 [facility] Comment on above: Order Comment: Comme nts: okay to do nonfasting Result Comment: Fast ing Glucose result greater than or equal to 126 mg/dLsuggests DIABETES MELLITUS per A.D.A. criteria. Performed By: #### L 500.4100, L500.4050 ####[facility] [address] [place], [address] Potassium [Moles/Vol] 4.2 mmol/L Normal 3.5-5.1 [facility] Comment on above: Order Comment: Comme nts: okay to do nonfasting Performed By: #### L 500.4100, L500.4050 ####[facility] [address] [place], [address] Sodium [Moles/Vol] 137 mmol/L Normal 136-145 [facility] Comment on above: Order Comment: Comme nts: okay to do nonfasting Performed By: #### L 500.4100, L500.4050 ####[facility] [address] [place], [address] T PROT 7.6 g/dL Normal 6.4-8.2 [facility] Comment on above: Order Comment: Comme nts: okay to do nonfasting Performed By: #### L 500.4100, L500.4050 ####[facility] [address] [place], [address] Urea nitrogen [Mass/Vol] 8 mg/dL Normal 7-18 [facility] Comment on above: Order Comment: Comme nts: okay to do nonfasting Performed By: #### L 500.4100, L500.4050 ####[facility] [address] [place], [address] Lipid Profileon 08-22-2024 Cholesterol [Mass/Vol] 124 mg/dL Normal 200 [facility] Comment on above: Order Comment: Comme nts: okay to do nonfasting Result Comment: <200 mg/dL Desirable 200-240 mg/dL Borderline >240 mg/dL High Risk Performed By: #### L 500.4100, L500.4050 ####[facility] [address] [place], [address] Cholesterol in HDL [Mass/Vol] 70 mg/dL Normal [facility] Comment on above: Order Comment: Comme nts: okay to do nonfasting Result Comment: The drugs N-Acetylcysteine and Metamizole may falselydepress this assay. Reference Range HDL <40 mg/dL Low HDL Cholesterol HDL >or= 60 mg/dL High HDL Cholesterol Performed By: #### L 500.4100, L500.4050 ####[facility] [address] [place], [address] Cholesterol in LDL [Mass/Vol] 13 mg/dL Normal 0-130 [facility] Comment on above: Order Comment: Comme nts: okay to do nonfasting Performed By: #### L 500.4100, L500.4050 ####[facility] [address] [place], [address] Cholesterol in VLDL [Mass/Vol] 41 mg/dL High 5-40 [facility] Comment on above: Order Comment: Comme nts: okay to do nonfasting Performed By: #### L 500.4100, L500.4050 ####[facility] [address] [place], [address] Triglyceride [Mass/Vol] 204 mg/dL High [facility] Comment on above: Order Comment: Comme nts: okay to do nonfasting Result Comment: The drugs N-Acetylcysteine and Metamizole may falselydepress this assay.Serum Triglycerides Reference Interval Normal <150 mg/dL Borderline high 150 - 199 mg/dL High 200 - 499 mg/dL Very High > or = 500 mg/dL Performed By: #### L 500.4100, L500.4050 ####[facility] [address] [place], [address] Inital Evaluation (1) - PTon 08-16-2024 Inital Evaluation (1) - PT Normal [facility] CNOVon 04-22-2024 CNOV Office Visit ([facility] ) JOSEPH RINCON ([id number]) 1975 F NFR Date Time Provider Department 04/22/24 1:30 PM ARETHA SCHOFIELD [facility] During your visit today, we recorded the following information about you: Temperature Pulse Respiration Blood pressure 97.4 degrees 115/minute 20/minute 120/84 Weight 75.8 kg Aretha Schofield, TELETYPEWRITER INSTALLER.SPRINKLER REPAIR TECHNICIAN 04/22/2024 2:02 PM Signed Subjective Sinus Problem [...] since qu (more content not included)... Normal [facility] Basophil percentageOrdered B y: Milana Garcia on 03-21-2024 Bilirubin [Mass/Vol] 0.60 mg/dL 0.20-1.00 [facility] Comment on above: For patients on eltr ombopag therapy, use of Dimension [place] TBIL is not recommended. Chloride [Moles/Vol] 105 mmol/L 98-107 [facility] Glucose [Mass/Vol] 121 mg/dL 74-106 [facility] Comment on above: Fasting Glucose resu lt from 100 to 125 mg/dL suggests IMPAIRED HOMEOSTASIS per A.D.A. criteria. Potassium [Moles/Vol] 4.0 mmol/L 3.5-5.1 [facility] Protein [Mass/Vol] 7.6 g/dL 6.4-8.2 [facility] Sodium [Moles/Vol] 136 mmol/L 136-145 [facility] Laboratory - Chemistry and C hemistry - challengeOrdered By: Milana Garcia on 03-21-2024 Albumin/Globulin [Mass ratio] 0.9 {ratio} 0.9-2.4 [facility] ALP [Catalytic activity/Vol] 67 U/L 45-117 [facility] ALT [Catalytic activity/Vol] 27 U/L 13-56 [facility] CO2 [Moles/Vol] 24.0 mmol/L 21.0-32.0 [facility] Globulin (S) [Mass/Vol] 4.0 g/dL 2.2-4.2 [facility] Magnesium [Mass/Vol] 1.7 mg/dL 1.6-2.6 [facility] Sodium (U) [Moles/Vol] 104 mmol/L Not Establ. [facility] Urea nitrogen/Creatinine [Mass ratio] 21.6 mg/mg 10-20 [facility] No Panel InformationOrdered By: Milana Garcia on 03-21-2024 Estimated GFR (MDRD) Amer 108 mL/min >60 [facility] Comment on above: GFR Calc Estimated GFR (MDRD) Non-Af Amer 89 mL/min >60 [facility] Comment on above: Non- GFR Calc Serum or plasma calcium alphonso urement (mass/volume)Ordered By: Milana Garcia on 03-21-2024 Calcium [Mass/Vol] 8.8 mg/dL 8.5-10.1 [facility] Serum or plasma creatinine m easurement (mass/volume)Ordered By: Milana Garcia on 03-21-2024 Creatinine [Mass/Vol] 0.74 mg/dL 0.55-1.02 [facility] Comment on above: The validity of the calculated GFR & GFRAA in patients over 70 years has not been determined. Clinical correlation is essential. Serum or plasma thyroid stim ulating hormone (TSH) measurement (units/volume)Ordered By: Milana Garcia on 03-21-2024 TSH Qn 1.06 uIU/mL 0.358-3.74 [facility] Serum or plasma urea nitroge n measurement (mass/volume)Ordered By: Milana Garcia on 03-21-2024 Urea nitrogen [Mass/Vol] 16 mg/dL 7-18 [facility] Thin prep Papanicolaou smear with manual screeningOrdered By: Milana Garcia on 03-21-2024 Thin prep Papanicolaou smear with manual screening 3.6 g/dL 3.2-5.0 [facility] Thin prep Papanicolaou smear with manual screening 22 U/L 15-37 [facility] Thin prep Papanicolaou smear with manual screening 7 5-15 [facility] Thin prep Papanicolaou smear with manual screening 286 mOsm/KG 275-295 [facility] Urine osmolality measurement Ordered By: Milana Garcia on 03-21-2024 Osmolality (U) [Osmolality] 535 mOsm/KG >50 [facility] Comment on above: Normal Urine Referen ce Ranges Random: 50 - 1200 mOsm/kg H20 depending on fluid intake Random: >850 mOsm/kg after 12 hour fluid restriction 24 hour: ~300 - 900 mOsm/kg H2O Absolute lymphocyte countOrd ered By: Caprice Jerry on 01-24-2024 Lymphocytes Auto (Unsp spec) [#/Vol] 3.36 10*3/uL 0.83-4.51 [facility] Automated lymphocyte count a s percentage of total leukocytesOrdered By: Caprice Jerry on 01-24-2024 Lymphocytes/100 WBC Auto (Unsp spec) 33.3 % 19-41 [facility] Basophil percentageOrdered B y: Caprice Jerry on 01-24-2024 Basophils/100 WBC (Bld) 0.8 % 0-1 [facility] Chloride [Moles/Vol] 104 mmol/L 98-107 [facility] Eosinophils/100 WBC (Bld) 1.6 % 0-5 [facility] Glucose [Mass/Vol] 110 mg/dL 74-106 [facility] Comment on above: Fasting Glucose resu lt from 100 to 125 mg/dL suggests IMPAIRED HOMEOSTASIS per A.D.A. criteria. Hemoglobin (Bld) [Mass/Vol] 12.5 g/dL 12.0-15.0 [facility] Monocytes/100 WBC (Bld) 9.1 % 0-10 [facility] Neutrophils (Bld) [#/Vol] 5.5 10*3/uL 2.0-7.7 [facility] Neutrophils/100 WBC (Bld) 54.8 % 47-70 [facility] Potassium [Moles/Vol] 3.9 mmol/L 3.5-5.1 [facility] Sodium [Moles/Vol] 138 mmol/L 136-145 [facility] WBC (Bld) [#/Vol] 10.1 10*3/uL 4.4-11.0 [facility] Basophil percentageOrdered B y: Ainsley Bean on 01-24-2024 Bilirubin [Mass/Vol] 0.30 mg/dL 0.20-1.00 [facility] Comment on above: For patients on eltr ombopag therapy, use of Dimension [place] TBIL is not recommended. Protein [Mass/Vol] 7.1 g/dL 6.4-8.2 [facility] Determination of erythrocyte mean corpuscular volume (MCV)Ordered By: Caprice Jerry on 01-24-2024 MCV (RBC) [Entitic vol] 95.9 fL 81-99 [facility] Direct bilirubinOrdered By: Ainsley Bean on 01-24-2024 Bilirubin.direct [Mass/Vol] 0.12 mg/dL 0.00-0.30 [facility] Erythrocyte distribution wid th ratioOrdered By: Caprice Jerry on 01-24-2024 Erythrocyte distribution width (RBC) [Ratio] 11.9 % 11.6-14.6 [facility] Erythrocyte distribution wid th standard deviationOrdered By: Caprice Jerry on 01-24-2024 Erythrocyte distribution width (RBC) [Entitic vol] 41.5 fL 35.1-43.9 [facility] Hematocrit Auto (Bld) [Volum e fraction]Ordered By: Caprice Jerry on 01-24-2024 Hematocrit (Bld) [Volume fraction] 37.4 % 37-47 [facility] Immature granulocytes/100 WB C Auto (Bld)Ordered By: Caprice Jerry on 01-24-2024 Immature granulocytes/100 WBC (Bld) 0.400 % 0.0-0.9 [facility] Comment on above: IG% - Immature Granu locytes (promyelocytes, myelocytes and metamyelocytes) > 1% indicates that a LEFT SHIFT is Present. Laboratory - Chemistry and C hemistry - challengeOrdered By: Ainsley Bean on 01-24-2024 ALP [Catalytic activity/Vol] 69 U/L 45-117 [facility] ALT [Catalytic activity/Vol] 23 U/L 13-56 [facility] Globulin (S) [Mass/Vol] 3.7 g/dL 2.2-4.2 [facility] Lipase [Catalytic activity/Vol] 88 U/L 13-75 [facility] Comment on above: Please note:LIPASE r evised reference range effective 23. New Lipase methodology. Expected to produce lower values than the previous assay method. NEW Reference Range: 13 - 75 U/L Laboratory - Chemistry and C hemistry - challengeOrdered By: Caprice Jerry on 01-24-2024 CO2 [Moles/Vol] 29.0 mmol/L 21.0-32.0 [facility] Urea nitrogen/Creatinine [Mass ratio] 21.7 mg/mg 10-20 [facility] Laboratory - Hematology and Cell countsOrdered By: Caprice Jerry on 01-24-2024 MCH (RBC) [Entitic mass] 32.1 pg 27.0-32.0 [facility] MCHC (RBC) [Mass/Vol] 33.4 g/dL 32-36 [facility] Nucleated RBC/100 WBC (Bld) [Ratio] 0 % 0-5 [facility] Platelet mean volume (Bld) [Entitic vol] 9.6 fL 6.2-12.0 [facility] Platelets (Bld) [#/Vol] 264 10*3/uL 150-450 [facility] No Panel InformationOrdered By: Ainsley Bean on 01-24-2024 Troponin I High Sensitivity 4 pg/mL 3.0-54.0 [facility] Comment on above: Please Note: New Miri t Units and Gender Specific Reference Ranges. For more information see Policy Stat Procedure [place] High Sensitivity Troponin (TNIH) and attachments. No Panel InformationOrdered By: Caprice Jerry on 01-24-2024 Estimated GFR (MDRD) Amer 108 mL/min >60 [facility] Comment on above: GFR Calc Estimated GFR (MDRD) Non-Af Amer 90 mL/min >60 [facility] Comment on above: Non- GFR Calc RBC Auto (Bld) [#/Vol]Ordere d By: Caprice Jerry on 01-24-2024 RBC (Bld) [#/Vol] 3.90 10*6/uL 4.2-5.4 [facility] Serum or plasma calcium alphonso urement (mass/volume)Ordered By: Caprice Jerry on 01-24-2024 Calcium [Mass/Vol] 10.1 mg/dL 8.5-10.1 [facility] Serum or plasma creatinine m easurement (mass/volume)Ordered By: Caprice Jerry on 01-24-2024 Creatinine [Mass/Vol] 0.74 mg/dL 0.55-1.02 [facility] Comment on above: The validity of the calculated GFR & GFRAA in patients over 70 years has not been determined. Clinical correlation is essential. Serum or plasma urea nitroge n measurement (mass/volume)Ordered By: Caprice Jerry on 01-24-2024 Urea nitrogen [Mass/Vol] 16 mg/dL 7-18 [facility] Thin prep Papanicolaou smear with manual screeningOrdered By: Ainsley Bean on 01-24-2024 Thin prep Papanicolaou smear with manual screening 3.4 g/dL 3.2-5.0 [facility] Thin prep Papanicolaou smear with manual screening 25 U/L 15-37 [facility] Comment on above: Slight Hemolysis, Re sult may be falsely increased. Thin prep Papanicolaou smear with manual screeningOrdered By: Caprice Jerry on 01-24-2024 Thin prep Papanicolaou smear with manual screening 5 5-15 [facility] Absolute lymphocyte countOrd ered By: Caprice Jerry on 10-10-2023 Lymphocytes Auto (Unsp spec) [#/Vol] 0.98 10*3/uL 0.83-4.51 [facility] Basophil percentageOrdered B y: Caprice Jerry on 10-10-2023 Basophils/100 WBC (Bld) 0.3 % 0-1 [facility] Bilirubin [Mass/Vol] 1.00 mg/dL 0.20-1.00 [facility] Comment on above: For patients on eltr ombopag therapy, use of Dimension [place] TBIL is not recommended. Chloride [Moles/Vol] 103 mmol/L 98-107 [facility] Eosinophils/100 WBC (Bld) 0.2 % 0-5 [facility] Glucose [Mass/Vol] 175 mg/dL 74-106 [facility] Comment on above: Fasting Glucose resu lt greater than or equal to 126 mg/dL suggests DIABETES MELLITUS per A.D.A. criteria. Neutrophils (Bld) [#/Vol] 7.6 10*3/uL 2.0-7.7 [facility] Neutrophils/100 WBC (Bld) 81.6 % 47-70 [facility] Potassium [Moles/Vol] 3.9 mmol/L 3.5-5.1 [facility] Protein [Mass/Vol] 7.3 g/dL 6.4-8.2 [facility] Sodium [Moles/Vol] 133 mmol/L 136-145 [facility] WBC (Bld) [#/Vol] 9.3 10*3/uL 4.4-11.0 [facility] Blood erythrocytes count (nu mber/volume)Ordered By: Caprice Jerry on 10-10-2023 RBC (Bld) [#/Vol] 4.14 10*6/uL 4.2-5.4 [facility] Blood hemoglobin measurement (mass/volume)Ordered By: Caprice Jerry on 10-10-2023 Hemoglobin (Bld) [Mass/Vol] 13.5 g/dL 12.0-15.0 [facility] Blood lymphocytes/100 leukoc ytesOrdered By: Caprice Jerry on 10-10-2023 Lymphocytes/100 WBC (Bld) 10.6 % 19-41 [facility] Blood monocytes/100 leukocyt esOrdered By: Caprice Jerry on 10-10-2023 Monocytes/100 WBC (Bld) 7.0 % 0-10 [facility] Blood platelet mean volumeOr dered By: Caprice Jerry on 10-10-2023 Platelet mean volume (Bld) [Entitic vol] 9.7 fL 6.2-12.0 [facility] Determination of erythrocyte mean corpuscular volume (MCV)Ordered By: Caprice Jerry on 10-10-2023 MCV (RBC) [Entitic vol] 98.3 fL 81-99 [facility] Direct bilirubinOrdered By: Caprice Jerry on 10-10-2023 Bilirubin.direct [Mass/Vol] 0.30 mg/dL 0.00-0.30 [facility] Hematocrit Auto (Bld) [Volum e fraction]Ordered By: Caprice Jerry on 10-10-2023 Hematocrit (Bld) [Volume fraction] 40.7 % 37-47 [facility] Influenza virus A and B and SARS-CoV-2 (COVID-19) Ag panel - Upper respiratory specimOrdered By: Caprice Jerry on 10-10-2023 SARS-CoV-2 (COVID-19) RNA ALLEY+probe Ql (Resp) [facility] Laboratory - Chemistry and C hemistry - challengeOrdered By: Caprice Jerry on 10-10-2023 ALP [Catalytic activity/Vol] 97 U/L 45-117 [facility] ALT [Catalytic activity/Vol] 54 U/L 13-56 [facility] CO2 [Moles/Vol] 22.0 mmol/L 21.0-32.0 [facility] Globulin (S) [Mass/Vol] 3.8 g/dL 2.2-4.2 [facility] Lipase [Catalytic activity/Vol] 45 U/L 13-75 [facility] Comment on above: Please note:LIPASE r evised reference range effective 23. New Lipase methodology. Expected to produce lower values than the previous assay method. NEW Reference Range: 13 - 75 U/L Urea nitrogen/Creatinine [Mass ratio] 8.9 mg/mg 10-20 [facility] Laboratory - Hematology and Cell countsOrdered By: Caprice Jerry on 10-10-2023 Erythrocyte distribution width (RBC) [Entitic vol] 44.4 fL 35.1-43.9 [facility] Erythrocyte distribution width (RBC) [Ratio] 12.4 % 11.6-14.6 [facility] Immature granulocytes/100 WBC (Bld) 0.300 % 0.0-0.9 [facility] Comment on above: IG% - Immature Granu locytes (promyelocytes, myelocytes and metamyelocytes) > 1% indicates that a LEFT SHIFT is Present. MCH (RBC) [Entitic mass] 32.6 pg 27.0-32.0 [facility] Nucleated RBC/100 WBC (Bld) [Ratio] 0 % 0-5 [facility] Auto (RBC) [Mass/Vol]Or dered By: Caprice Jerry on 10-10-2023 MCHC (RBC) [Mass/Vol] 33.2 g/dL 32-36 [facility] No Panel InformationOrdered By: Caprice Jerry on 10-10-2023 D-Dimer Quantitative (PE/DVT) 0.45 FEU/ug/m 0.27-0.49 [facility] Comment on above: NORMAL D-Dimer level (<0.50) indicates no DVT or PE. Estimated Creatinine Clearance Calc 31.78 ml/min [facility] Estimated GFR (MDRD) Amer 36 mL/min >60 [facility] Comment on above: GFR Calc Estimated GFR (MDRD) Non-Af Amer 30 mL/min >60 [facility] Comment on above: Non- GFR Calc Troponin I High Sensitivity 12 pg/mL 3.0-54.0 [facility] Comment on above: Please Note: New Miri t Units and Gender Specific Reference Ranges. For more information see Policy Stat Procedure [place] High Sensitivity Troponin (TNIH) and attachments. Platelets bldOrdered By: Leona Jerry on 10-10-2023 Platelets (Bld) [#/Vol] 255 10*3/uL 150-450 [facility] Serum or plasma albumin alphonso urement (mass/volume)Ordered By: Caprice Jerry on 10-10-2023 Albumin [Mass/Vol] 3.5 g/dL 3.2-5.0 [facility] Serum or plasma calcium alphonso urement (mass/volume)Ordered By: Caprice Jerry on 10-10-2023 Calcium [Mass/Vol] 8.1 mg/dL 8.5-10.1 [facility] Serum or plasma creatinine m easurement (mass/volume)Ordered By: Caprice Jerry on 10-10-2023 Creatinine [Mass/Vol] 1.91 mg/dL 0.55-1.02 [facility] [place] Comment on above: The validity of the calculated GFR & GFRAA in patients over 70 years has not been determined. Clinical correlation is essential. Serum or plasma urea nitroge n measurement (mass/volume)Ordered By: Caprice Jerry on 10-10-2023 Urea nitrogen [Mass/Vol] 17 mg/dL 7-18 [facility] Thin prep Papanicolaou smear with manual screeningOrdered By: Caprice Jerry on 10-10-2023 Thin prep Papanicolaou smear with manual screening 68 U/L 15-37 [facility] Thin prep Papanicolaou smear with manual screening 8 5-15 [facility] No Panel Informationon 09-15 POC SARS CoV-2 Antigen Negative [facility] Basophil percentageOrdered B y: Jim Manriquez on 08-25-2023 Bilirubin [Mass/Vol] 0.20 mg/dL 0.20-1.00 [facility] Comment on above: For patients on eltr ombopag therapy, use of Dimension [place] TBIL is not recommended. Cholesterol [Mass/Vol] 224 mg/dL <200 [facility] Comment on above: <200 mg/dL Desirable 200-240 mg/dL Borderline >240 mg/dL High Risk Protein [Mass/Vol] 7.2 g/dL 6.4-8.2 [facility] Triglyceride [Mass/Vol] 405 mg/dL <199 [facility] Comment on above: The drugs [...] on 08-25-2023 Bilirubin.direct [Mass/Vol] 0.10 mg/dL 0.00-0.30 [facility] Laboratory - Chemistry and C hemistry - challengeOrdered By: Jim Manriquez on 08-25-2023 ALP [Catalytic activity/Vol] 97 U/L 45-117 [facility] ALT [Catalytic activity/Vol] 88 U/L 13-56 [facility] Globulin (S) [Mass/Vol] 3.7 g/dL 2.2-4.2 [facility] Lipase [Catalytic activity/Vol] 53 U/L 13-75 [facility] Comment on above: Please note:LIPASE r evised reference range effective 23. New Lipase methodology. Expected to produce lower values than the previous assay method. NEW Reference Range: 13 - 75 U/L Serum or plasma albumin alphonso urement (mass/volume)Ordered By: Jim Manriquez on 08-25-2023 Albumin [Mass/Vol] 3.5 g/dL 3.2-5.0 [facility] Serum or plasma cholesterol in HDL measurement (mass/volume)Ordered By: Jim Manriquez on 08-25-2023 Cholesterol in HDL [Mass/Vol] 61 mg/dL >40 [facility] Comment on above: The drugs N-Acetylcy steine and Metamizole may falsely depress this assay. Reference Range HDL <40 mg/dL Low HDL Cholesterol HDL >or= 60 mg/dL High HDL Cholesterol Serum or plasma cholesterol in VLDL measurement (mass/volume)Ordered By: Jim Manriquez on 08-25-2023 Cholesterol in VLDL [Mass/Vol] [facility] Comment on above: Test not performed Serum or plasma low density lipoprotein (LDL) cholesterol measurement (mass/volume)Ordered By: Jim Manriquez on 08-25-2023 Cholesterol in LDL [Mass/Vol] [facility] Comment on above: Test not performed Thin prep Papanicolaou smear with manual screeningOrdered By: Jim Manriquez on 08-25-2023 Thin prep Papanicolaou smear with manual screening 43 U/L 15-37 [facility] Absolute lymphocyte countOrd ered By: Jennifer Davila on 08-23-2023 Lymphocytes Auto (Unsp spec) [#/Vol] 2.29 10*3/uL 0.83-4.51 [facility] Basophil percentageOrdered B y: Jennifer Davila on 08-23-2023 Basophil percentage 0 SEEN /hpf 0-5 [facility] Basophils/100 WBC (Bld) 0.5 % 0-1 [facility] Bilirubin [Mass/Vol] 0.30 mg/dL 0.20-1.00 [facility] Comment on above: For patients on eltr ombopag therapy, use of Dimension [place] TBIL is not recommended. Chloride [Moles/Vol] 103 mmol/L 98-107 [facility] Eosinophils/100 WBC (Bld) 1.6 % 0-5 [facility] Glucose [Mass/Vol] 205 mg/dL 74-106 [facility] Comment on above: Glucose result great er than or equal to 200 mg/dLsuggests DIABETES MELLITUS per A.D.A. criteria. Neutrophils (Bld) [#/Vol] 7.5 10*3/uL 2.0-7.7 [facility] Neutrophils/100 WBC (Bld) 69.4 % 47-70 [facility] Potassium [Moles/Vol] 4.3 mmol/L 3.5-5.1 [facility] [place] Protein [Mass/Vol] 7.8 g/dL 6.4-8.2 [facility] Sodium [Moles/Vol] 135 mmol/L 136-145 [facility] WBC (Bld) [#/Vol] 10.8 10*3/uL 4.4-11.0 [facility] Bilirubin Test strip Ql (U)O rdered By: Jennifer Davila on 08-23-2023 Bilirubin Ql (U) Negative Negative [facility] Blood erythrocytes count (nu mber/volume)Ordered By: Jennifer Davila on 08-23-2023 RBC (Bld) [#/Vol] 4.30 10*6/uL 4.2-5.4 [facility] Blood hemoglobin measurement (mass/volume)Ordered By: Jennifer Davila on 08-23-2023 Hemoglobin (Bld) [Mass/Vol] 14.0 g/dL 12.0-15.0 [facility] Blood lymphocytes/100 leukoc ytesOrdered By: Jennifer Davila on 08-23-2023 Lymphocytes/100 WBC (Bld) 21.3 % 19-41 [facility] Blood monocytes/100 leukocyt esOrdered By: Jennifer Davila on 08-23-2023 Monocytes/100 WBC (Bld) 6.7 % 0-10 [facility] Blood platelet mean volumeOr dered By: Jennifer Davila on 08-23-2023 Platelet mean volume (Bld) [Entitic vol] 9.6 fL 6.2-12.0 [facility] Determination of erythrocyte mean corpuscular volume (MCV)Ordered By: Jennifer Davila on 08-23-2023 MCV (RBC) [Entitic vol] 97.9 fL 81-99 [facility] Hematocrit Auto (Bld) [Volum e fraction]Ordered By: Jennifer Davila on 08-23-2023 Hematocrit (Bld) [Volume fraction] 42.1 % 37-47 [facility] Ketones Test strip Ql (U)Ord ered By: Jennifer Davila on 08-23-2023 Ketones Ql (U) Negative Negative [facility] Laboratory - Chemistry and C hemistry - challengeOrdered By: Jennifer Davila on 08-23-2023 ALP [Catalytic activity/Vol] 69 U/L 45-117 [facility] ALT [Catalytic activity/Vol] 26 U/L 13-56 [facility] CO2 [Moles/Vol] 24.0 mmol/L 21.0-32.0 [facility] Globulin (S) [Mass/Vol] 4.2 g/dL 2.2-4.2 [facility] Lipase [Catalytic activity/Vol] 41 U/L 13-75 [facility] Comment on above: Please note:LIPASE r evised reference range effective 23. New Lipase methodology. Expected to produce lower values than the previous assay method. NEW Reference Range: 13 - 75 U/L Urea nitrogen/Creatinine [Mass ratio] 9.5 mg/mg 10-20 [facility] Laboratory - Hematology and Cell countsOrdered By: Jennifer Davila on 08-23-2023 Erythrocyte distribution width (RBC) [Entitic vol] 45.9 fL 35.1-43.9 [facility] Erythrocyte distribution width (RBC) [Ratio] 12.8 % 11.6-14.6 [facility] Immature granulocytes/100 WBC (Bld) 0.500 % 0.0-0.9 [facility] Comment on above: IG% - Immature Granu locytes (promyelocytes, myelocytes and metamyelocytes) > 1% indicates that a LEFT SHIFT is Present. MCH (RBC) [Entitic mass] 32.6 pg 27.0-32.0 [facility] Nucleated RBC/100 WBC (Bld) [Ratio] 0 % 0-5 [facility] MCHC Auto (RBC) [Mass/Vol]Or dered By: Jennifer Davila on 08-23-2023 MCHC (RBC) [Mass/Vol] 33.3 g/dL 32-36 [facility] [place] Mucus LM Ql (Urine sed)Order ed By: Jennifer Davila on 08-23-2023 Mucus Ql (Urine sed) 0 SEEN /hpf [facility] Nitrite Test strip Ql (U)Ord ered By: Jennifer Davila on 08-23-2023 Nitrite Ql (U) Negative Negative [facility] No Panel InformationOrdered By: Jennifer Davila on 08-23-2023 Estimated Creatinine Clearance Calc 57.81 ml/min [facility] Estimated GFR (MDRD) Amer 72 mL/min >60 [facility] Comment on above: GFR Calc Estimated GFR (MDRD) Non-Af Amer 60 mL/min >60 [facility] Comment on above: Non- GFR Calc Troponin I High Sensitivity 3 pg/mL 3.0-54.0 [facility] Comment on above: Please Note: New Miri t Units and Gender Specific Reference Ranges. For more information see Policy Stat Procedure [place] High Sensitivity Troponin (TNIH) and attachments. Platelets bldOrdered By: Kole Davila on 08-23-2023 Platelets (Bld) [#/Vol] 264 10*3/uL 150-450 [facility] Protein Test strip Ql (U)Ord ered By: Jennifer Davila on 08-23-2023 Protein Ql (U) Negative Negative [facility] Serum or plasma albumin alphonso urement (mass/volume)Ordered By: Jennifer Davila on 08-23-2023 Albumin [Mass/Vol] 3.6 g/dL 3.2-5.0 [facility] Serum or plasma albumin/glob ulin mass ratioOrdered By: Jennifer Davila on 08-23-2023 Albumin/Globulin [Mass ratio] 0.9 {ratio} 0.9-2.4 [facility] Serum or plasma calcium alphonso urement (mass/volume)Ordered By: Jennifer Davila on 08-23-2023 Calcium [Mass/Vol] 8.8 mg/dL 8.5-10.1 [facility] Serum or plasma creatinine m easurement (mass/volume)Ordered By: Jennifer Davila on 08-23-2023 Creatinine [Mass/Vol] 1.05 mg/dL 0.55-1.02 [facility] [place] Comment on above: The validity of the calculated GFR & GFRAA in patients over 70 years has not been determined. Clinical correlation is essential. Serum or plasma urea nitroge n measurement (mass/volume)Ordered By: Jennifer Davila on 08-23-2023 Urea nitrogen [Mass/Vol] 10 mg/dL 7-18 [facility] Squamous epithelial cells de tection in urine sediment by light microscopyOrdered By: Jennifer Davila on 08-23-2023 Epithelial cells.squamous LM Ql (Urine sed) 0-5 SEEN /hpf 5-10 [facility] Thin prep Papanicolaou smear with manual screeningOrdered By: Jennifer Davila on 08-23-2023 Thin prep Papanicolaou smear with manual screening 18 U/L 15-37 [facility] Thin prep Papanicolaou smear with manual screening 8 5-15 [facility] Urine blood detectionOrdered By: Jennifer Davila on 08-23-2023 RBC Ql (U) Negative Negative [facility] RBC Ql (U) 0 SEEN /hpf 0-5 [facility] Urine clarityOrdered By: Kole Davila on 08-23-2023 Clarity (U) Clear Clear [facility] Urine color determinationOrd ered By: Jennifer Davila on 08-23-2023 Color (U) Yellow Yellow [facility] Urine glucose detectionOrder ed By: Jennifer Davila on 08-23-2023 Glucose Ql (U) 1000 mg/dl Normal [facility] Urine leukocyte esterase det ection by dipstickOrdered By: Jennifer Davila on 08-23-2023 Leukocyte esterase Test strip Ql (U) Negative Negative [facility] Urine pHOrdered By: Suha Davila on 08-23-2023 pH (U) 6.0 [pH] 5.0 - 8.0 [facility] Urine sediment bacteria coun t by microscopy (number/high power field)Ordered By: Jennifer Davila on 08-23-2023 Bacteria LM.HPF (Urine sed) [#/Area] 0 /[HPF] None Seen [facility] Urine specific gravity measu rementOrdered By: Jennifer Davila on 08-23-2023 Specific gravity (U) [Rel density] 1.010 1.002-1.030 [facility] Urobilinogen Auto test strip Ql (U)Ordered By: Jennifer Davila on 08-23-2023 Urobilinogen Ql (U) Normal mg/dl Normal [facility] [place] Absolute lymphocyte countOrd ered By: Caprice Jerry on 07-29-2023 Lymphocytes Auto (Unsp spec) [#/Vol] 2.24 10*3/uL 0.83-4.51 [facility] Basophil percentageOrdered B y: Caprice Jerry on 07-29-2023 Basophils/100 WBC (Bld) 0.5 % 0-1 [facility] Bilirubin [Mass/Vol] 0.30 mg/dL 0.20-1.00 [facility] Comment on above: For patients on eltr ombopag therapy, use of Dimension [place] TBIL is not recommended. Chloride [Moles/Vol] 102 mmol/L 98-107 [facility] Eosinophils/100 WBC (Bld) 1.6 % 0-5 [facility] Glucose [Mass/Vol] 173 mg/dL 74-106 [facility] Comment on above: Fasting Glucose resu lt greater than or equal to 126 mg/dL suggests DIABETES MELLITUS per A.D.A. criteria. Neutrophils (Bld) [#/Vol] 5.6 10*3/uL 2.0-7.7 [facility] Neutrophils/100 WBC (Bld) 63.7 % 47-70 [facility] Potassium [Moles/Vol] 3.9 mmol/L 3.5-5.1 [facility] Protein [Mass/Vol] 7.3 g/dL 6.4-8.2 [facility] Sodium [Moles/Vol] 135 mmol/L 136-145 [facility] WBC (Bld) [#/Vol] 8.8 10*3/uL 4.4-11.0 [facility] Beta hCG serum qualOrdered B y: Caprice Jerry on 07-29-2023 Beta HCG ( test) Ql Negative [facility] Blood erythrocytes count (nu mber/volume)Ordered By: Caprice Jerry on 07-29-2023 RBC (Bld) [#/Vol] 3.94 10*6/uL 4.2-5.4 [facility] Blood hemoglobin measurement (mass/volume)Ordered By: Caprice Jerry on 07-29-2023 Hemoglobin (Bld) [Mass/Vol] 13.1 g/dL 12.0-15.0 [facility] Blood lymphocytes/100 leukoc ytesOrdered By: Caprice Jerry on 07-29-2023 Lymphocytes/100 WBC (Bld) 25.4 % 19-41 [facility] Blood monocytes/100 leukocyt esOrdered By: Caprice Jerry on 07-29-2023 Monocytes/100 WBC (Bld) 8.5 % 0-10 [facility] Blood platelet mean volumeOr dered By: Caprice Jerry on 07-29-2023 Platelet mean volume (Bld) [Entitic vol] 9.6 fL 6.2-12.0 [facility] Determination of erythrocyte mean corpuscular volume (MCV)Ordered By: Caprice Jerry on 07-29-2023 MCV (RBC) [Entitic vol] 97.7 fL 81-99 [facility] Direct bilirubinOrdered By: Caprice Jerry on 07-29-2023 Bilirubin.direct [Mass/Vol] 0.08 mg/dL 0.00-0.30 [facility] Hematocrit Auto (Bld) [Volum e fraction]Ordered By: Caprice Jerry on 07-29-2023 Hematocrit (Bld) [Volume fraction] 38.5 % 37-47 [facility] Laboratory - Chemistry and C hemistry - challengeOrdered By: Caprice Jerry on 07-29-2023 ALP [Catalytic activity/Vol] 93 U/L 45-117 [facility] ALT [Catalytic activity/Vol] 45 U/L 13-56 [facility] CO2 [Moles/Vol] 26.0 mmol/L 21.0-32.0 [facility] Globulin (S) [Mass/Vol] 3.8 g/dL 2.2-4.2 [facility] Lipase [Catalytic activity/Vol] 32 U/L 13-75 [facility] Comment on above: Please note:LIPASE r evised reference range effective 23. New Lipase methodology. Expected to produce lower values than the previous assay method. NEW Reference Range: 13 - 75 U/L Urea nitrogen/Creatinine [Mass ratio] 12.5 mg/mg 10-20 [facility] Laboratory - Hematology and Cell countsOrdered By: Caprice Jerry on 07-29-2023 Erythrocyte distribution width (RBC) [Entitic vol] 45.1 fL 35.1-43.9 [facility] Erythrocyte distribution width (RBC) [Ratio] 12.7 % 11.6-14.6 [facility] Immature granulocytes/100 WBC (Bld) 0.300 % 0.0-0.9 [facility] Comment on above: IG% - Immature Granu locytes (promyelocytes, myelocytes and metamyelocytes) > 1% indicates that a LEFT SHIFT is Present. MCH (RBC) [Entitic mass] 33.2 pg 27.0-32.0 [facility] Nucleated RBC/100 WBC (Bld) [Ratio] 0 % 0-5 [facility] MCHC Auto (RBC) [Mass/Vol]Or dered By: Caprice Jerry on 07-29-2023 MCHC (RBC) [Mass/Vol] 34.0 g/dL 32-36 [facility] [place] No Panel InformationOrdered By: Caprice Jerry on 07-29-2023 Troponin I High Sensitivity 4 pg/mL 3.0-54.0 [facility] Comment on above: Please Note: New Miri t Units and Gender Specific Reference Ranges. For more information see Policy Stat Procedure [place] High Sensitivity Troponin (TNIH) and attachments. Estimated Creatinine Clearance Calc 68.98 ml/min [facility] Estimated GFR (MDRD) Amer 89 mL/min >60 [facility] Comment on above: GFR Calc Estimated GFR (MDRD) Non-Af Amer 74 mL/min >60 [facility] Comment on above: Non- GFR Calc Platelets bldOrdered By: Leona Jerry on 07-29-2023 Platelets (Bld) [#/Vol] 281 10*3/uL 150-450 [facility] Serum or plasma albumin alphonso urement (mass/volume)Ordered By: Caprice Jerry on 07-29-2023 Albumin [Mass/Vol] 3.5 g/dL 3.2-5.0 [facility] Serum or plasma calcium alphonso urement (mass/volume)Ordered By: Caprice Jerry on 07-29-2023 Calcium [Mass/Vol] 8.5 mg/dL 8.5-10.1 [facility] Serum or plasma creatinine m easurement (mass/volume)Ordered By: Caprice Jerry on 07-29-2023 Creatinine [Mass/Vol] 0.88 mg/dL 0.55-1.02 [facility] [place] Comment on above: The validity of the calculated GFR & GFRAA in patients over 70 years has not been determined. Clinical correlation is essential. Serum or plasma urea nitroge n measurement (mass/volume)Ordered By: Caprice Jerry on 07-29-2023 Urea nitrogen [Mass/Vol] 11 mg/dL 7-18 [facility] Thin prep Papanicolaou smear with manual screeningOrdered By: Caprice Jerry on 07-29-2023 Thin prep Papanicolaou smear with manual screening 24 U/L 15-37 [facility] Thin prep Papanicolaou smear with manual screening 7 5-15 [facility] Absolute lymphocyte countOrd ered By: Milana Garcia on 07-19-2023 Lymphocytes Auto (Unsp spec) [#/Vol] 2.51 10*3/uL 0.83-4.51 [facility] Basophil percentageOrdered B y: Milana Garcia on 07-19-2023 Basophil percentage 3.1 mg/dL 2.5-4.9 [facility] Basophils/100 WBC (Bld) 0.4 % 0-1 [facility] Bilirubin [Mass/Vol] 0.50 mg/dL 0.20-1.00 [facility] Comment on above: For patients on eltr ombopag therapy, use of Dimension [place] TBIL is not recommended. Chloride [Moles/Vol] 106 mmol/L 98-107 [facility] Eosinophils/100 WBC (Bld) 3.2 % 0-5 [facility] Glucose [Mass/Vol] 123 mg/dL 74-106 [facility] Comment on above: Fasting Glucose resu lt from 100 to 125 mg/dL suggests IMPAIRED HOMEOSTASIS per A.D.A. criteria. Neutrophils (Bld) [#/Vol] 3.7 10*3/uL 2.0-7.7 [facility] Neutrophils/100 WBC (Bld) 52.0 % 47-70 [facility] Potassium [Moles/Vol] 3.5 mmol/L 3.5-5.1 [facility] [place] Protein [Mass/Vol] 6.9 g/dL 6.4-8.2 [facility] Sodium [Moles/Vol] 140 mmol/L 136-145 [facility] WBC (Bld) [#/Vol] 7.2 10*3/uL 4.4-11.0 [facility] Blood erythrocytes count (nu mber/volume)Ordered By: Milana Garcia on 07-19-2023 RBC (Bld) [#/Vol] 3.83 10*6/uL 4.2-5.4 [facility] Blood hemoglobin measurement (mass/volume)Ordered By: Milana Garcia on 07-19-2023 Hemoglobin (Bld) [Mass/Vol] 12.3 g/dL 12.0-15.0 [facility] Blood lymphocytes/100 leukoc ytesOrdered By: Milana Garcia on 07-19-2023 Lymphocytes/100 WBC (Bld) 35.1 % 19-41 [facility] Blood monocytes/100 leukocyt esOrdered By: Milana Garcia on 07-19-2023 Monocytes/100 WBC (Bld) 9.0 % 0-10 [facility] Blood platelet mean volumeOr dered By: Milana Garcia on 07-19-2023 Platelet mean volume (Bld) [Entitic vol] 9.6 fL 6.2-12.0 [facility] Determination of erythrocyte mean corpuscular volume (MCV)Ordered By: Milana Garcia on 07-19-2023 MCV (RBC) [Entitic vol] 97.9 fL 81-99 [facility] Hematocrit Auto (Bld) [Volum e fraction]Ordered By: Milana Garcia on 07-19-2023 Hematocrit (Bld) [Volume fraction] 37.5 % 37-47 [facility] Laboratory - Chemistry and C hemistry - challengeOrdered By: Milana Garcia on 07-19-2023 ALP [Catalytic activity/Vol] 68 U/L 45-117 [facility] ALT [Catalytic activity/Vol] 28 U/L 13-56 [facility] CO2 [Moles/Vol] 27.0 mmol/L 21.0-32.0 [facility] Cobalamin (Vitamin B12) [Mass/Vol] 534 pg/mL 211-911 [facility] Globulin (S) [Mass/Vol] 3.6 g/dL 2.2-4.2 [facility] Magnesium [Mass/Vol] 1.6 mg/dL 1.6-2.6 [facility] Urea nitrogen/Creatinine [Mass ratio] 10.4 mg/mg 10-20 [facility] Laboratory - Hematology and Cell countsOrdered By: Milana Garcia on 07-19-2023 Erythrocyte distribution width (RBC) [Entitic vol] 43.8 fL 35.1-43.9 [facility] Erythrocyte distribution width (RBC) [Ratio] 12.3 % 11.6-14.6 [facility] Immature granulocytes/100 WBC (Bld) 0.300 % 0.0-0.9 [facility] Comment on above: IG% - Immature Granu locytes (promyelocytes, myelocytes and metamyelocytes) > 1% indicates that a LEFT SHIFT is Present. MCH (RBC) [Entitic mass] 32.1 pg 27.0-32.0 [facility] Nucleated RBC/100 WBC (Bld) [Ratio] 0 % 0-5 [facility] MCHC Auto (RBC) [Mass/Vol]Or dered By: Milana Garcia on 07-19-2023 MCHC (RBC) [Mass/Vol] 32.8 g/dL 32-36 [facility] [place] No Panel InformationOrdered By: Milana Garcia on 07-19-2023 Estimated GFR (MDRD) Amer 121 mL/min >60 [facility] Comment on above: GFR Calc Estimated GFR (MDRD) Non-Af Amer 100 mL/min >60 [facility] Comment on above: Non- GFR Calc Thyroid Stimulating Hormone (TSH) 1.07 uIU/mL 0.358-3.74 [facility] Platelets bldOrdered By: Yamel Garcia on 07-19-2023 Platelets (Bld) [#/Vol] 245 10*3/uL 150-450 [facility] Serum or plasma albumin alphonso urement (mass/volume)Ordered By: Milana Garcia on 07-19-2023 Albumin [Mass/Vol] 3.3 g/dL 3.2-5.0 [facility] Serum or plasma albumin/glob ulin mass ratioOrdered By: Milnaa Garcia on 07-19-2023 Albumin/Globulin [Mass ratio] 0.9 {ratio} 0.9-2.4 [facility] Serum or plasma calcium alphonso urement (mass/volume)Ordered By: Milana Garcia on 07-19-2023 Calcium [Mass/Vol] 8.4 mg/dL 8.5-10.1 [facility] Serum or plasma creatinine m easurement (mass/volume)Ordered By: Milana Garcia on 07-19-2023 Creatinine [Mass/Vol] 0.68 mg/dL 0.55-1.02 [facility] [place] Comment on above: The validity of the calculated GFR & GFRAA in patients over 70 years has not been determined. Clinical correlation is essential. Serum or plasma folate measu rement (mass/volume)Ordered By: Milana Garcia on 07-19-2023 Folate [Mass/Vol] 58.30 ng/mL 3.1-55.4 [facility] Serum or plasma urea nitroge n measurement (mass/volume)Ordered By: Milana Garcia on 07-19-2023 Urea nitrogen [Mass/Vol] 7 mg/dL 7-18 [facility] Thin prep Papanicolaou smear with manual screeningOrdered By: Milana Garcia on 07-19-2023 Thin prep Papanicolaou smear with manual screening 19 U/L 15-37 [facility] Thin prep Papanicolaou smear with manual screening 7 5-15 [facility] No Panel InformationOrdered By: Dr. Jerry on 05-25-2023 Troponin I High Sensitivity 3 pg/mL 3.0-54.0 [facility] Comment on above: Please Note: New [place] t Units and Gender Specific Reference Ranges. For more information see Policy Stat Procedure [place] High Sensitivity Troponin (TNIH) and attachments. Absolute lymphocyte countOrd ered By: Dr. Jerry on 05-24-2023 Lymphocytes Auto (Unsp spec) [#/Vol] 3.25 10*3/uL 0.83-4.51 [facility] Basophil percentageOrdered B y: Dr. Jerry on 05-24-2023 Basophil percentage 0 SEEN /hpf 0-5 [facility] Basophils/100 WBC (Bld) 0.7 % 0-1 [facility] Bilirubin [Mass/Vol] 0.20 mg/dL 0.20-1.00 [facility] Comment on above: For patients on eltr ombopag therapy, use of Dimension [place] TBIL is not recommended. Chloride [Moles/Vol] 112 mmol/L 98-107 [facility] Eosinophils/100 WBC (Bld) 2.2 % 0-5 [facility] Glucose [Mass/Vol] 127 mg/dL 74-106 [facility] Comment on above: Fasting Glucose resu lt greater than or equal to 126 mg/dL suggests DIABETES MELLITUS per A.D.A. criteria. Neutrophils (Bld) [#/Vol] 2.9 10*3/uL 2.0-7.7 [facility] Neutrophils/100 WBC (Bld) 40.3 % 47-70 [facility] Potassium [Moles/Vol] 5.9 mmol/L 3.5-5.1 [facility] [place] Comment on above: Moderate Hemolysis, Result may be falsely increased. Protein [Mass/Vol] 6.7 g/dL 6.4-8.2 [facility] Sodium [Moles/Vol] 138 mmol/L 136-145 [facility] WBC (Bld) [#/Vol] 7.2 10*3/uL 4.4-11.0 [facility] Beta hCG serum qualOrdered B y: Dr. Jerry on 05-24-2023 Beta HCG ( test) Ql Negative [facility] Bilirubin Test strip Ql (U)O rdered By: Dr. Jerry on 05-24-2023 Bilirubin Ql (U) Negative Negative [facility] Blood erythrocytes count (nu mber/volume)Ordered By: Dr. Jerry on 05-24-2023 RBC (Bld) [#/Vol] 3.88 10*6/uL 4.2-5.4 [facility] Blood hemoglobin measurement (mass/volume)Ordered By: Dr. Jerry on 05-24-2023 Hemoglobin (Bld) [Mass/Vol] 12.9 g/dL 12.0-15.0 [facility] Blood lymphocytes/100 leukoc ytesOrdered By: Dr. Jerry on 05-24-2023 Lymphocytes/100 WBC (Bld) 45.0 % 19-41 [facility] Blood monocytes/100 leukocyt esOrdered By: Dr. Jerry on 05-24-2023 Monocytes/100 WBC (Bld) 11.4 % 0-10 [facility] Blood platelet mean volumeOr dered By: Dr. Jerry on 05-24-2023 Platelet mean volume (Bld) [Entitic vol] 9.8 fL 6.2-12.0 [facility] Determination of erythrocyte mean corpuscular volume (MCV)Ordered By: Dr. Jerry on 05-24-2023 MCV (RBC) [Entitic vol] 100.0 fL 81-99 [facility] Direct bilirubinOrdered By: Dr. Jerry on 05-24-2023 Bilirubin.direct [Mass/Vol] mg/dL 0.00-0.30 [facility] Hematocrit Auto (Bld) [Volum e fraction]Ordered By: Dr. Jerry on 05-24-2023 Hematocrit (Bld) [Volume fraction] 38.8 % 37-47 [facility] Ketones Test strip Ql (U)Ord ered By: Dr. Jerry on 05-24-2023 Ketones Ql (U) Negative Negative [facility] Laboratory - Chemistry and C hemistry - challengeOrdered By: Dr. Jerry on 05-24-2023 ALP [Catalytic activity/Vol] 57 U/L 45-117 [facility] ALT [Catalytic activity/Vol] 27 U/L 13-56 [facility] CO2 [Moles/Vol] 19.0 mmol/L 21.0-32.0 [facility] Globulin (S) [Mass/Vol] 3.8 g/dL 2.2-4.2 [facility] Lipase [Catalytic activity/Vol] 64 U/L 13-75 [facility] Comment on above: Please note:LIPASE r evised reference range effective 23. New Lipase methodology. Expected to produce lower values than the previous assay method. NEW Reference Range: 13 - 75 U/L Urea nitrogen/Creatinine [Mass ratio] 9.1 mg/mg 10-20 [facility] Laboratory - Hematology and Cell countsOrdered By: Dr. Jerry on 05-24-2023 Erythrocyte distribution width (RBC) [Entitic vol] 46.2 fL 35.1-43.9 [facility] Erythrocyte distribution width (RBC) [Ratio] 12.6 % 11.6-14.6 [facility] Immature granulocytes/100 WBC (Bld) 0.400 % 0.0-0.9 [facility] Comment on above: IG% - Immature Granu locytes (promyelocytes, myelocytes and metamyelocytes) > 1% indicates that a LEFT SHIFT is Present. MCH (RBC) [Entitic mass] 33.2 pg 27.0-32.0 [facility] Nucleated RBC/100 WBC (Bld) [Ratio] 0 % 0-5 [facility] MCHC Auto (RBC) [Mass/Vol]Or dered By: Dr. Jerry on 05-24-2023 MCHC (RBC) [Mass/Vol] 33.2 g/dL 32-36 [facility] [place] Mucus LM Ql (Urine sed)Order ed By: Dr. Jerry on 05-24-2023 Mucus Ql (Urine sed) 0 SEEN /hpf [facility] [place] Nitrite Test strip Ql (U)Ord ered By: Dr. Jerry on 05-24-2023 Nitrite Ql (U) Negative Negative [facility] No Panel InformationOrdered By: Dr. Jerry on 05-24-2023 Estimated Creatinine Clearance Calc 45.99 ml/min [facility] Estimated GFR (MDRD) Amer 56 mL/min >60 [facility] Comment on above: GFR Calc Estimated GFR (MDRD) Non-Af Amer 46 mL/min >60 [facility] Comment on above: Non- GFR Calc Ethyl Alcohol Level 193.0 mg/dL [facility] Comment on above: The serum:whole bloo d ethanol ratio is approximately 1.14and varies slightly with hematocrit. Medical Alcohol reference interval and critical value innon-tolerant individuals; 50 - 100 Impairment 100 Intoxication 100 - 250 Severe Poisoning 250 - 400 Deep/possible fatal coma Platelets bldOrdered By: Dr. Jerry on 05-24-2023 Platelets (Bld) [#/Vol] 276 10*3/uL 150-450 [facility] Protein Test strip Ql (U)Ord ered By: Dr. Jerry on 05-24-2023 Protein Ql (U) Negative Negative [facility] Serum or plasma acetone alphonso urement (mass/volume)Ordered By: Dr. Jerry on 05-24-2023 Acetone [Mass/Vol] Negative NEG [facility] Serum or plasma albumin alphonso urement (mass/volume)Ordered By: Dr. Jerry on 05-24-2023 Albumin [Mass/Vol] 2.9 g/dL 3.2-5.0 [facility] Serum or plasma calcium alphonso urement (mass/volume)Ordered By: Dr. Jerry on 05-24-2023 Calcium [Mass/Vol] 7.5 mg/dL 8.5-10.1 [facility] Serum or plasma creatinine m easurement (mass/volume)Ordered By: Dr. Jerry on 05-24-2023 Creatinine [Mass/Vol] 1.32 mg/dL 0.55-1.02 [facility] [place] Comment on above: The validity of the calculated GFR & GFRAA in patients over 70 years has not been determined. Clinical correlation is essential. Serum or plasma urea nitroge n measurement (mass/volume)Ordered By: Dr. Jerry on 05-24-2023 Urea nitrogen [Mass/Vol] 12 mg/dL 7-18 [facility] Squamous epithelial cells de tection in urine sediment by light microscopyOrdered By: Dr. Jerry on 05-24-2023 Epithelial cells.squamous LM Ql (Urine sed) 0 SEEN /hpf 5-10 [facility] Thin prep Papanicolaou smear with manual screeningOrdered By: Dr. Jerry on 05-24-2023 Thin prep Papanicolaou smear with manual screening 47 U/L 15-37 [facility] Comment on above: Moderate Hemolysis, Result may be falsely increased. Thin prep Papanicolaou smear with manual screening 7 5-15 [facility] Urine blood detectionOrdered By: Dr. Jerry on 05-24-2023 RBC Ql (U) Negative Negative [facility] RBC Ql (U) 0 SEEN /hpf 0-5 [facility] Urine clarityOrdered By: Dr. Jerry on 05-24-2023 Clarity (U) Clear Clear [facility] Urine color determinationOrd ered By: Dr. Jerry on 05-24-2023 Color (U) Yellow Yellow [facility] Urine glucose detectionOrder ed By: Dr. Jerry on 05-24-2023 Glucose Ql (U) 1000 mg/dl Normal [facility] Urine leukocyte esterase det ection by dipstickOrdered By: Dr. Jerry on 05-24-2023 Leukocyte esterase Test strip Ql (U) Negative Negative [facility] Urine pHOrdered By: Dr. Maximiliano morris on 05-24-2023 pH (U) 6.5 [pH] 5.0 - 8.0 [facility] Urine sediment bacteria coun t by microscopy (number/high power field)Ordered By: Dr. Jerry on 05-24-2023 Bacteria LM.HPF (Urine sed) [#/Area] 0 /[HPF] None Seen [facility] Urine specific gravity measu rementOrdered By: Dr. Jerry on 05-24-2023 Specific gravity (U) [Rel density] 1.005 1.002-1.030 [facility] Urobilinogen Auto test strip Ql (U)Ordered By: Dr. Jerry on 05-24-2023 Urobilinogen Ql (U) Normal mg/dl Normal [facility] [place] Basophil percentageOrdered B y: Milana Garcia on 05-19-2023 Basophil percentage 2.6 mg/dL 2.5-4.9 [facility] Bilirubin [Mass/Vol] 0.30 mg/dL 0.20-1.00 [facility] Comment on above: For patients on eltr ombopag therapy, use of Dimension [place] TBIL is not recommended. Protein [Mass/Vol] 7.2 g/dL 6.4-8.2 [facility] Direct bilirubinOrdered By: Milana Garcia on 05-19-2023 Bilirubin.direct [Mass/Vol] 0.11 mg/dL 0.00-0.30 [facility] Laboratory - Chemistry and C hemistry - challengeOrdered By: Milana Garcia on 05-19-2023 ALP [Catalytic activity/Vol] 69 U/L 45-117 [facility] ALT [Catalytic activity/Vol] 22 U/L 13-56 [facility] Cobalamin (Vitamin B12) [Mass/Vol] 361 pg/mL 211-911 [facility] Free T4 [Mass/Vol] 0.78 ng/dL 0.76-1.46 [facility] Globulin (S) [Mass/Vol] 3.8 g/dL 2.2-4.2 [facility] Magnesium [Mass/Vol] 1.8 mg/dL 1.6-2.6 [facility] No Panel InformationOrdered By: Milana Garcia on 05-19-2023 Thyroid Stimulating Hormone (TSH) 1.95 uIU/mL 0.358-3.74 [facility] Serum or plasma albumin alphonso urement (mass/volume)Ordered By: Milana Garcia on 05-19-2023 Albumin [Mass/Vol] 3.4 g/dL 3.2-5.0 [facility] Serum or plasma ferritin alexis surement (mass/volume)Ordered By: Milana Garcia on 05-19-2023 Ferritin [Mass/Vol] 69 ng/mL 8-252 [facility] Serum or plasma folate measu rement (mass/volume)Ordered By: Milana Garcia on 05-19-2023 Folate [Mass/Vol] 4.00 ng/mL 3.1-55.4 [facility] Thin prep Papanicolaou smear with manual screeningOrdered By: Milana Garcia on 05-19-2023 Thin prep Papanicolaou smear with manual screening 18 U/L 15-37 [facility] No Panel InformationOrdered By: Dr. Dyer on 05-05-2023 Troponin I High Sensitivity < 3 pg/mL 3.0-54.0 [facility] Comment on above: Please Note: New [place] t Units and Gender Specific Reference Ranges. For more information see Policy Stat Procedure [place] High Sensitivity Troponin (TNIH) and attachments. Absolute lymphocyte countOrd ered By: Dr. Dyer on 05-04-2023 Lymphocytes Auto (Unsp spec) [#/Vol] 3.17 10*3/uL 0.83-4.51 [facility] Basophil percentageOrdered B y: Dr. Dyer on 05-04-2023 Basophils/100 WBC (Bld) 0.4 % 0-1 [facility] Chloride [Moles/Vol] 105 mmol/L 98-107 [facility] Eosinophils/100 WBC (Bld) 2.7 % 0-5 [facility] Glucose [Mass/Vol] 103 mg/dL 74-106 [facility] Comment on above: Fasting Glucose resu lt from 100 to 125 mg/dL suggests IMPAIRED HOMEOSTASIS per A.D.A. criteria. Neutrophils (Bld) [#/Vol] 4.6 10*3/uL 2.0-7.7 [facility] Neutrophils/100 WBC (Bld) 51.3 % 47-70 [facility] Potassium [Moles/Vol] 3.4 mmol/L 3.5-5.1 [facility] [place] Sodium [Moles/Vol] 138 mmol/L 136-145 [facility] WBC (Bld) [#/Vol] 8.9 10*3/uL 4.4-11.0 [facility] Blood erythrocytes count (nu mber/volume)Ordered By: Dr. Dyer on 05-04-2023 RBC (Bld) [#/Vol] 3.72 10*6/uL 4.2-5.4 [facility] Blood hemoglobin measurement (mass/volume)Ordered By: Dr. Dyer on 05-04-2023 Hemoglobin (Bld) [Mass/Vol] 12.1 g/dL 12.0-15.0 [facility] Blood lymphocytes/100 leukoc ytesOrdered By: Dr. Dyer on 05-04-2023 Lymphocytes/100 WBC (Bld) 35.6 % 19-41 [facility] Blood monocytes/100 leukocyt esOrdered By: Dr. Dyer on 05-04-2023 Monocytes/100 WBC (Bld) 9.4 % 0-10 [facility] Blood platelet mean volumeOr dered By: Dr. Dyer on 05-04-2023 Platelet mean volume (Bld) [Entitic vol] 9.4 fL 6.2-12.0 [facility] Determination of erythrocyte mean corpuscular volume (MCV)Ordered By: Dr. Dyer on 06-06-2023 MCV (RBC) [Entitic vol] 98.4 fL 81-99 [facility] Hematocrit Auto (Bld) [Volum e fraction]Ordered By: Dr. Dyer on 05-04-2023 Hematocrit (Bld) [Volume fraction] 36.6 % 37-47 [facility] Laboratory - Chemistry and C hemistry - challengeOrdered By: Dr. Dyer on 05-04-2023 CO2 [Moles/Vol] 27.0 mmol/L 21.0-32.0 [facility] Urea nitrogen/Creatinine [Mass ratio] 19.2 mg/mg 10-20 [facility] Laboratory - Hematology and Cell countsOrdered By: Dr. Dyer on 05-04-2023 Erythrocyte distribution width (RBC) [Entitic vol] 47.8 fL 35.1-43.9 [facility] Erythrocyte distribution width (RBC) [Ratio] 13.3 % 11.6-14.6 [facility] Immature granulocytes/100 WBC (Bld) 0.600 % 0.0-0.9 [facility] Comment on above: IG% - Immature Granu locytes (promyelocytes, myelocytes and metamyelocytes) > 1% indicates that a LEFT SHIFT is Present. MCH (RBC) [Entitic mass] 32.5 pg 27.0-32.0 [facility] Nucleated RBC/100 WBC (Bld) [Ratio] 0 % 0-5 [facility] MCHC Auto (RBC) [Mass/Vol]Or dered By: Dr. Dyer on 05-04-2023 MCHC (RBC) [Mass/Vol] 33.1 g/dL 32-36 [facility] [place] No Panel InformationOrdered By: Dr. Dyer on 05-04-2023 Estimated Creatinine Clearance Calc 83.15 ml/min [facility] Estimated GFR (MDRD) Amer 110 mL/min >60 [facility] Comment on above: GFR Calc Estimated GFR (MDRD) Non-Af Amer 91 mL/min >60 [facility] Comment on above: Non- GFR Calc Platelets bldOrdered By: Dr. Dyer on 05-04-2023 Platelets (Bld) [#/Vol] 274 10*3/uL 150-450 [facility] Serum or plasma calcium alphonso urement (mass/volume)Ordered By: Dr. Dyer on 05-04-2023 Calcium [Mass/Vol] 8.6 mg/dL 8.5-10.1 [facility] Serum or plasma creatinine m easurement (mass/volume)Ordered By: Dr. Dyer on 05-04-2023 Creatinine [Mass/Vol] 0.73 mg/dL 0.55-1.02 [facility] [place] Comment on above: The validity of the calculated GFR & GFRAA in patients over 70 years has not been determined. Clinical correlation is essential. Serum or plasma urea nitroge n measurement (mass/volume)Ordered By: Dr. Dyer on 05-04-2023 Urea nitrogen [Mass/Vol] 14 mg/dL - [facility] Thin prep Papanicolaou smear with manual screeningOrdered By: Dr. Dyer on 05-04-2023 Thin prep Papanicolaou smear with manual screening 6 - [facility] Laboratory - Microbiology an d Antimicrobial susceptibilityOrdered By: Dr. Jacobs on 04-15-2023 Bacteria identified Cx Nom (Bld) No growth in 5 days. [facility] Absolute lymphocyte countOrd ered By: Dr. Kiran on 04-11-2023 Lymphocytes Auto (Unsp spec) [#/Vol] 2.75 10*3/uL 0.83-4.51 [facility] Basophil percentageOrdered B y: Dr. Kiran on 04-11-2023 Basophils/100 WBC (Bld) 0.3 % 0-1 [facility] Chloride [Moles/Vol] 105 mmol/L 98-107 [facility] Eosinophils/100 WBC (Bld) 0.7 % 0-5 [facility] Glucose [Mass/Vol] 143 mg/dL 74-106 [facility] Comment on above: Fasting Glucose resu lt greater than or equal to 126 mg/dL suggests DIABETES MELLITUS per A.D.A. criteria. Neutrophils (Bld) [#/Vol] 7.8 10*3/uL 2.0-7.7 [facility] Neutrophils/100 WBC (Bld) 67.1 % 47-70 [facility] Potassium [Moles/Vol] 4.1 mmol/L 3.5-5.1 [facility] [place] Sodium [Moles/Vol] 137 mmol/L 136-145 [facility] WBC (Bld) [#/Vol] 11.6 10*3/uL 4.4-11.0 [facility] Basophil percentageOrdered B y: Dr. Johnson on 04-11-2023 Lactate [Moles/Vol] 0.6 mmol/L 0.4-2.0 [facility] Blood erythrocytes count (nu mber/volume)Ordered By: Dr. Kiran on 04-11-2023 RBC (Bld) [#/Vol] 3.87 10*6/uL 4.2-5.4 [facility] Blood hemoglobin measurement (mass/volume)Ordered By: Dr. Kiran on 04-11-2023 Hemoglobin (Bld) [Mass/Vol] 12.6 g/dL 12.0-15.0 [facility] Blood lymphocytes/100 leukoc ytesOrdered By: Dr. Kiran on 04-11-2023 Lymphocytes/100 WBC (Bld) 23.8 % 19-41 [facility] Blood monocytes/100 leukocyt esOrdered By: Dr. Kiran on 04-11-2023 Monocytes/100 WBC (Bld) 7.8 % 0-10 [facility] Blood platelet mean volumeOr dered By: Dr. Kiran on 04-11-2023 Platelet mean volume (Bld) [Entitic vol] 9.7 fL 6.2-12.0 [facility] Determination of erythrocyte mean corpuscular volume (MCV)Ordered By: Dr. Kiran on 04-11-2023 MCV (RBC) [Entitic vol] 100.5 fL 81-99 [facility] Glucose Glucometer (BldC) [M ass/Vol]Ordered By: Dr. Johnson on 04-11-2023 Glucose [Mass/Vol] 95 mg/dL 74-106 [facility] Comment on above: MANAGEMENT OF PATIEN T CARE PER NURSING PROTOCOL Hematocrit Auto (Bld) [Volum e fraction]Ordered By: Dr. Kiran on 04-11-2023 Hematocrit (Bld) [Volume fraction] 38.9 % 37-47 [facility] Laboratory - Chemistry and C hemistry - challengeOrdered By: Dr. Kiran on 04-11-2023 CO2 [Moles/Vol] 24.0 mmol/L 21.0-32.0 [facility] Urea nitrogen/Creatinine [Mass ratio] 23.2 mg/mg 10-20 [facility] Laboratory - Hematology and Cell countsOrdered By: Dr. Kiran on 04-11-2023 Erythrocyte distribution width (RBC) [Entitic vol] 47.8 fL 35.1-43.9 [facility] Erythrocyte distribution width (RBC) [Ratio] 13.1 % 11.6-14.6 [facility] Immature granulocytes/100 WBC (Bld) 0.300 % 0.0-0.9 [facility] Comment on above: IG% - Immature Granu locytes (promyelocytes, myelocytes and metamyelocytes) > 1% indicates that a LEFT SHIFT is Present. MCH (RBC) [Entitic mass] 32.6 pg 27.0-32.0 [facility] Nucleated RBC/100 WBC (Bld) [Ratio] 0 % 0-5 [facility] MCHC Auto (RBC) [Mass/Vol]Or dered By: Dr. Kiran on 04-11-2023 MCHC (RBC) [Mass/Vol] 32.4 g/dL 32-36 [facility] [place] No Panel InformationOrdered By: Dr. Kiran on 04-11-2023 Estimated Creatinine Clearance Calc 74.03 ml/min [facility] Estimated GFR (MDRD) Amer 97 mL/min >60 [facility] Comment on above: GFR Calc Estimated GFR (MDRD) Non-Af Amer 80 mL/min >60 [facility] Comment on above: Non- GFR Calc Platelets bldOrdered By: Dr. Kiran on 04-11-2023 Platelets (Bld) [#/Vol] 246 10*3/uL 150-450 [facility] Serum or plasma calcium alphonso urement (mass/volume)Ordered By: Dr. Kiran on 04-11-2023 Calcium [Mass/Vol] 8.8 mg/dL 8.5-10.1 [facility] Serum or plasma creatinine m easurement (mass/volume)Ordered By: Dr. Kiran on 04-11-2023 Creatinine [Mass/Vol] 0.82 mg/dL 0.55-1.02 [facility] [place] Comment on above: The validity of the calculated GFR & GFRAA in patients over 70 years has not been determined. Clinical correlation is essential. Serum or plasma urea nitroge n measurement (mass/volume)Ordered By: Dr. Kiran on 04-11-2023 Urea nitrogen [Mass/Vol] 19 mg/dL 7-18 [facility] Thin prep Papanicolaou smear with manual screeningOrdered By: Dr. Kiran on 04-11-2023 Thin prep Papanicolaou smear with manual screening 8 5-15 [facility] Basophil percentageOrdered B y: Dr. Jacobs on 04-10-2023 Chloride [Moles/Vol] 110 mmol/L 98-107 [facility] Glucose [Mass/Vol] 160 mg/dL 74-106 [facility] Comment on above: Fasting Glucose resu lt greater than or equal to 126 mg/dL suggests DIABETES MELLITUS per A.D.A. criteria. Lactate [Moles/Vol] 4.2 mmol/L 0.4-2.0 [facility] Comment on above: Critical Result(s) C alled at: 02:41:04 04/10/2023 by: Campos [employer]. Results read back by same. Potassium [Moles/Vol] 4.8 mmol/L 3.5-5.1 [facility] [place] Sodium [Moles/Vol] 140 mmol/L 136-145 [facility] Basophil percentage 0 SEEN /hpf 0-5 [facility] Bilirubin Test strip Ql (U)O rdered By: Dr. Jacobs on 04-10-2023 Bilirubin Ql (U) Negative Negative [facility] HCO3 (BldA) [Moles/Vol]Order ed By: Dr. Jacobs on 04-10-2023 HCO3 (Bld) [Moles/Vol] 20 mmol/L 22- [facility] Ketones Test strip Ql (U)Ord ered By: Dr. Jacobs on 04-10-2023 Ketones Ql (U) Negative Negative [facility] Laboratory - Chemistry and C hemistry - challengeOrdered By: Dr. Jacobs on 04-10-2023 CO2 [Moles/Vol] 19.0 mmol/L 21.0-32.0 [facility] Urea nitrogen/Creatinine [Mass ratio] 15.8 mg/mg 10-20 [facility] CO2 [Moles/Vol] 21 mmol/L 23-33 [facility] Laboratory - Microbiology an d Antimicrobial susceptibilityOrdered By: David Jacobs on 04-10-2023 Bacteria identified Cx Nom (Bld) No growth in 5 days. [facility] Mucus LM Ql (Urine sed)Order ed By: Dr. Jacobs on 04-10-2023 Mucus Ql (Urine sed) 0 SEEN /hpf [facility] [place] Nitrite Test strip Ql (U)Ord ered By: Dr. Jacobs on 04-10-2023 Nitrite Ql (U) Negative Negative [facility] No Panel InformationOrdered By: Dr. Jacobs on 04-10-2023 Estimated Creatinine Clearance Calc 60.10 ml/min [facility] Estimated GFR (MDRD) Amer 76 mL/min >60 [facility] Comment on above: GFR Calc Estimated GFR (MDRD) Non-Af Amer 63 mL/min >60 [facility] Comment on above: Non- GFR Calc Troponin I High Sensitivity < 3 pg/mL 3.0-54.0 [facility] Comment on above: Please Note: New Miri t Units and Gender Specific Reference Ranges. For more information see Policy Stat Procedure [place] High Sensitivity Troponin (TNIH) and attachments. Bed Mix Venous Bld PCO2 at Pat Temp 40.5 mmHg 41-51 [facility] Blood Gas Specimen Type GELACIO [facility] Oxygen Delivery Device Room Air [facility] Venous Blood Base Excess -7 mmol/L -1.0-3.5 [facility] No Panel InformationOrdered By: Dr. Kiran on 04-10-2023 Troponin I High Sensitivity < 3 pg/mL 3.0-54.0 [facility] Comment on above: Please Note: New Miri t Units and Gender Specific Reference Ranges. For more information see Policy Stat Procedure [place] High Sensitivity Troponin (TNIH) and attachments. PO2 venousOrdered By: Dr. Jose wood on 04-10-2023 Oxygen (BldV) [Partial pressure] 54 mm[Hg] 25-40 [facility] Protein Test strip Ql (U)Ord ered By: Dr. Jacobs on 04-10-2023 Protein Ql (U) Negative Negative [facility] Serum or plasma acetone alphonso urement (mass/volume)Ordered By: Dr. Jacobs on 04-10-2023 Acetone [Mass/Vol] Negative NEG [facility] Serum or plasma calcium alphonso urement (mass/volume)Ordered By: Dr. Jacobs on 04-10-2023 Calcium [Mass/Vol] 7.3 mg/dL 8.5-10.1 [facility] Serum or plasma creatinine m easurement (mass/volume)Ordered By: Dr. Jacobs on 04-10-2023 Creatinine [Mass/Vol] 1.01 mg/dL 0.55-1.02 [facility] [place] Comment on above: The validity of the calculated GFR & GFRAA in patients over 70 years has not been determined. Clinical correlation is essential. Serum or plasma urea nitroge n measurement (mass/volume)Ordered By: Dr. Jacobs on 04-10-2023 Urea nitrogen [Mass/Vol] 16 mg/dL 7-18 [facility] Squamous epithelial cells de tection in urine sediment by light microscopyOrdered By: Dr. Jacobs on 04-10-2023 Epithelial cells.squamous LM Ql (Urine sed) 0 SEEN /hpf 5-10 [facility] Thin prep Papanicolaou smear with manual screeningOrdered By: Dr. Jacobs on 04-10-2023 Thin prep Papanicolaou smear with manual screening 11 5-15 [facility] Urine blood detectionOrdered By: Dr. Jacobs on 04-10-2023 RBC Ql (U) Negative Negative [facility] RBC Ql (U) 0 SEEN /hpf 0-5 [facility] Urine clarityOrdered By: Dr. Jacobs on 04-10-2023 Clarity (U) Clear Clear [facility] Urine color determinationOrd ered By: Dr. Jacobs on 04-10-2023 Color (U) Yellow Yellow [facility] Urine glucose detectionOrder ed By: Dr. Jacobs on 04-10-2023 Glucose Ql (U) 1000 mg/dl Normal [facility] Urine leukocyte esterase det ection by dipstickOrdered By: Dr. Jacobs on 04-10-2023 Leukocyte esterase Test strip Ql (U) Negative Negative [facility] Urine pHOrdered By: Dr. Caren garza on 04-10-2023 pH (U) 6.5 [pH] 5.0 - 8.0 [facility] Urine sediment bacteria coun t by microscopy (number/high power field)Ordered By: Dr. Jacobs on 04-10-2023 Bacteria LM.HPF (Urine sed) [#/Area] 0 /[HPF] None Seen [facility] Urine specific gravity measu rementOrdered By: Dr. Jacobs on 04-10-2023 Specific gravity (U) [Rel density] 1.010 1.002-1.030 [facility] Urobilinogen Auto test strip Ql (U)Ordered By: Dr. Jacobs on 04-10-2023 Urobilinogen Ql (U) Normal mg/dl Normal [facility] [place] Vital signsOrdered By: Dr. Del mackay on 04-10-2023 Oxygen saturation in Blood 84 % 50-70 [facility] pH measurementOrdered By: Dr Jael Jacobs on 04-10-2023 pH (Unsp spec) 7.29 [pH] 7.32-7.42 [facility] Absolute lymphocyte countOrd ered By: Dr. Jacobs on 04-09-2023 Lymphocytes Auto (Unsp spec) [#/Vol] 0.91 10*3/uL 0.83-4.51 [facility] Basophil percentageOrdered B y: Dr. Jacobs on 04-09-2023 Basophils/100 WBC (Bld) 0.2 % 0-1 [facility] Eosinophils/100 WBC (Bld) 0.4 % 0-5 [facility] Neutrophils (Bld) [#/Vol] 6.8 10*3/uL 2.0-7.7 [facility] Neutrophils/100 WBC (Bld) 85.1 % 47-70 [facility] WBC (Bld) [#/Vol] 8.0 10*3/uL 4.4-11.0 [facility] Blood erythrocytes count (nu mber/volume)Ordered By: Dr. Jacobs on 04-09-2023 RBC (Bld) [#/Vol] 3.87 10*6/uL 4.2-5.4 [facility] Blood hemoglobin measurement (mass/volume)Ordered By: Dr. Jacobs on 04-09-2023 Hemoglobin (Bld) [Mass/Vol] 12.5 g/dL 12.0-15.0 [facility] Blood lymphocytes/100 leukoc ytesOrdered By: Dr. Jacobs on 04-09-2023 Lymphocytes/100 WBC (Bld) 11.3 % 19-41 [facility] Blood monocytes/100 leukocyt esOrdered By: Dr. Jacobs on 04-09-2023 Monocytes/100 WBC (Bld) 1.6 % 0-10 [facility] Blood platelet mean volumeOr dered By: Dr. Jacobs on 04-09-2023 Platelet mean volume (Bld) [Entitic vol] 10.0 fL 6.2-12.0 [facility] Determination of erythrocyte mean corpuscular volume (MCV)Ordered By: Dr. Jacobs on 04-09-2023 MCV (RBC) [Entitic vol] 99.5 fL 81-99 [facility] Hematocrit Auto (Bld) [Volum e fraction]Ordered By: Dr. Jacobs on 04-09-2023 Hematocrit (Bld) [Volume fraction] 38.5 % 37-47 [facility] Laboratory - Hematology and Cell countsOrdered By: Dr. Jacobs on 04-09-2023 Erythrocyte distribution width (RBC) [Entitic vol] 47.4 fL 35.1-43.9 [facility] Erythrocyte distribution width (RBC) [Ratio] 13.0 % 11.6-14.6 [facility] Immature granulocytes/100 WBC (Bld) 1.400 % 0.0-0.9 [facility] Comment on above: IG% - Immature Granu locytes (promyelocytes, myelocytes and metamyelocytes) > 1% indicates that a LEFT SHIFT is Present. MCH (RBC) [Entitic mass] 32.3 pg 27.0-32.0 [facility] Nucleated RBC/100 WBC (Bld) [Ratio] 0 % 0-5 [facility] MCHC Auto (RBC) [Mass/Vol]Or dered By: Dr. Jacobs on 04-09-2023 MCHC (RBC) [Mass/Vol] 32.5 g/dL 32-36 [facility] [place] No Panel InformationOrdered By: Dr. Jacobs on 04-09-2023 D-Dimer Quantitative (PE/DVT) < 0.27 FEU/ug/m 0.27-0.49 [facility] Comment on above: NORMAL D-Dimer level (<0.50) indicates no DVT or PE. Platelets bldOrdered By: Dr. Jacobs on 04-09-2023 Platelets (Bld) [#/Vol] 298 10*3/uL 150-450 [facility] Absolute lymphocyte countOrd ered By: Dr. Gaviria on 03-22-2023 Lymphocytes Auto (Unsp spec) [#/Vol] 2.49 10*3/uL 0.83-4.51 [facility] Amorphous sediment detection in urine sediment by light microscopyOrdered By: Dr. Gaviria on 03-22-2023 Amorphous sediment LM Ql (Urine sed) 1+ URATE [facility] Basophil percentageOrdered B y: Dr. Gaviria on 03-22-2023 Basophil percentage 5-10 SEEN /hpf 0-5 [facility] Basophils/100 WBC (Bld) 0.5 % 0-1 [facility] Bilirubin [Mass/Vol] 0.30 mg/dL 0.20-1.00 [facility] Comment on above: For patients on eltr ombopag therapy, use of Dimension [place] TBIL is not recommended. Chloride [Moles/Vol] 105 mmol/L 98-107 [facility] Eosinophils/100 WBC (Bld) 2.0 % 0-5 [facility] Glucose [Mass/Vol] 146 mg/dL 74-106 [facility] Comment on above: Fasting Glucose resu lt greater than or equal to 126 mg/dL suggests DIABETES MELLITUS per A.D.A. criteria. Lactate [Moles/Vol] 1.4 mmol/L 0.4-2.0 [facility] Neutrophils (Bld) [#/Vol] 7.1 10*3/uL 2.0-7.7 [facility] Neutrophils/100 WBC (Bld) 64.4 % 47-70 [facility] Potassium [Moles/Vol] 4.4 mmol/L 3.5-5.1 [facility] [place] Protein [Mass/Vol] 7.7 g/dL 6.4-8.2 [facility] Sodium [Moles/Vol] 133 mmol/L 136-145 [facility] WBC (Bld) [#/Vol] 11.0 10*3/uL 4.4-11.0 [facility] Bilirubin Test strip Ql (U)O rdered By: Dr. Gaviria on 03-22-2023 Bilirubin Ql (U) Negative Negative [facility] Blood erythrocytes count (nu mber/volume)Ordered By: Dr. Gaviria on 03-22-2023 RBC (Bld) [#/Vol] 4.25 10*6/uL 4.2-5.4 [facility] Blood hemoglobin measurement (mass/volume)Ordered By: Dr. Gaviria on 03-22-2023 Hemoglobin (Bld) [Mass/Vol] 13.6 g/dL 12.0-15.0 [facility] Blood lymphocytes/100 leukoc ytesOrdered By: Dr. Gaviria on 03-22-2023 Lymphocytes/100 WBC (Bld) 22.7 % 19-41 [facility] Blood monocytes/100 leukocyt esOrdered By: Dr. Gaviria on 03-22-2023 Monocytes/100 WBC (Bld) 9.9 % 0-10 [facility] Blood platelet mean volumeOr dered By: Dr. Gaviria on 03-22-2023 Platelet mean volume (Bld) [Entitic vol] 9.7 fL 6.2-12.0 [facility] Determination of erythrocyte mean corpuscular volume (MCV)Ordered By: Dr. Gaviria on 03-22-2023 MCV (RBC) [Entitic vol] 97.6 fL 81-99 [facility] Hematocrit Auto (Bld) [Volum e fraction]Ordered By: Dr. Gaviria on 03-22-2023 Hematocrit (Bld) [Volume fraction] 41.5 % 37-47 [facility] Ketones Test strip Ql (U)Ord ered By: Dr. Gaviria on 03-22-2023 Ketones Ql (U) Negative Negative [facility] Laboratory - Chemistry and C hemistry - challengeOrdered By: Dr. Gaviria on 03-22-2023 ALP [Catalytic activity/Vol] 71 U/L 45-117 [facility] ALT [Catalytic activity/Vol] 33 U/L 13-56 [facility] CO2 [Moles/Vol] 24.0 mmol/L 21.0-32.0 [facility] Globulin (S) [Mass/Vol] 3.7 g/dL 2.2-4.2 [facility] Urea nitrogen/Creatinine [Mass ratio] 10.8 mg/mg 10-20 [facility] Laboratory - Hematology and Cell countsOrdered By: Dr. Gaviria on 03-22-2023 Erythrocyte distribution width (RBC) [Entitic vol] 46.9 fL 35.1-43.9 [facility] Erythrocyte distribution width (RBC) [Ratio] 13.1 % 11.6-14.6 [facility] Immature granulocytes/100 WBC (Bld) 0.500 % 0.0-0.9 [facility] Comment on above: IG% - Immature Granu locytes (promyelocytes, myelocytes and metamyelocytes) > 1% indicates that a LEFT SHIFT is Present. MCH (RBC) [Entitic mass] 32.0 pg 27.0-32.0 [facility] Nucleated RBC/100 WBC (Bld) [Ratio] 0 % 0-5 [facility] MCHC Auto (RBC) [Mass/Vol]Or dered By: Dr. Gaviria on 03-22-2023 MCHC (RBC) [Mass/Vol] 32.8 g/dL 32-36 [facility] [place] Mucus LM Ql (Urine sed)Order ed By: Dr. Gaviria on 03-22-2023 Mucus Ql (Urine sed) 0 SEEN /hpf [facility] Nitrite Test strip Ql (U)Ord ered By: Dr. Gaviria on 03-22-2023 Nitrite Ql (U) Negative Negative [facility] No Panel InformationOrdered By: Dr. Gaviria on 03-22-2023 Estimated Creatinine Clearance Calc 36.74 ml/min [facility] Estimated GFR (MDRD) Amer 43 mL/min >60 [facility] Comment on above: GFR Calc Estimated GFR (MDRD) Non-Af Amer 35 mL/min >60 [facility] Comment on above: Non- GFR Calc Platelets bldOrdered By: Dr. Gaviria on 03-22-2023 Platelets (Bld) [#/Vol] 316 10*3/uL 150-450 [facility] Protein Test strip Ql (U)Ord ered By: Dr. Gaviria on 03-22-2023 Protein Ql (U) Negative Negative [facility] Serum or plasma albumin alphonso urement (mass/volume)Ordered By: Dr. Gaviria on 03-22-2023 Albumin [Mass/Vol] 4.0 g/dL 3.2-5.0 [facility] Serum or plasma albumin/glob ulin mass ratioOrdered By: Dr. Gaviria on 03-22-2023 Albumin/Globulin [Mass ratio] 1.1 {ratio} 0.9-2.4 [facility] Serum or plasma calcium alphonso urement (mass/volume)Ordered By: Dr. Gaviria on 03-22-2023 Calcium [Mass/Vol] 8.9 mg/dL 8.5-10.1 [facility] Serum or plasma creatinine m easurement (mass/volume)Ordered By: Dr. Gaviria on 03-22-2023 Creatinine [Mass/Vol] 1.67 mg/dL 0.55-1.02 [facility] [place] Comment on above: The validity of the calculated GFR & GFRAA in patients over 70 years has not been determined. Clinical correlation is essential. Serum or plasma urea nitroge n measurement (mass/volume)Ordered By: Dr. Gaviria on 03-22-2023 Urea nitrogen [Mass/Vol] 18 mg/dL 7-18 [facility] Squamous epithelial cells de tection in urine sediment by light microscopyOrdered By: Dr. Gaviria on 03-22-2023 Epithelial cells.squamous LM Ql (Urine sed) 0-5 SEEN /hpf 5-10 [facility] Thin prep Papanicolaou smear with manual screeningOrdered By: Dr. Gaviria on 03-22-2023 Thin prep Papanicolaou smear with manual screening 20 U/L 15-37 [facility] Thin prep Papanicolaou smear with manual screening 4 5-15 [facility] Urine blood detectionOrdered By: Dr. Gaviria on 03-22-2023 RBC Ql (U) Negative Negative [facility] RBC Ql (U) 0 SEEN /hpf 0-5 [facility] Urine clarityOrdered By: Dr. Gaviria on 03-22-2023 Clarity (U) Sl. Cloudy Clear [facility] Urine color determinationOrd ered By: Dr. Gaviria on 03-22-2023 Color (U) Yellow Yellow [facility] Urine glucose detectionOrder ed By: Dr. Gaviria on 03-22-2023 Glucose Ql (U) 1000 mg/dl Normal [facility] Urine leukocyte esterase det ection by dipstickOrdered By: Dr. Gaviria on 03-22-2023 Leukocyte esterase Test strip Ql (U) 100 /ul Negative [facility] Urine pHOrdered By: Dr. Shae ruelas on 03-22-2023 pH (U) 6.5 [pH] 5.0 - 8.0 [facility] Urine sediment bacteria coun t by microscopy (number/high power field)Ordered By: Dr. Gaviria on 03-22-2023 Bacteria LM.HPF (Urine sed) [#/Area] 0 /[HPF] None Seen [facility] Urine specific gravity measu rementOrdered By: Dr. Gaviria on 03-22-2023 Specific gravity (U) [Rel density] 1.005 1.002-1.030 [facility] Urobilinogen Auto test strip Ql (U)Ordered By: Dr. Gaviria on 03-22-2023 Urobilinogen Ql (U) Normal mg/dl Normal [facility] [place] Laboratory - Microbiology an d Antimicrobial susceptibilityon 02-12-2023 SARS-CoV-2 (COVID-19) RNA ALLEY+probe Ql (Unsp spec) Not detected [facility] No Panel Informationon 02-12 Influenza Types A,B Rapid (Clinic) Not detected [facility] Absolute lymphocyte countOrd ered By: Dr. Jacobs on 01-21-2023 Lymphocytes Auto (Unsp spec) [#/Vol] 2.33 10*3/uL 0.83-4.51 [facility] Basophil percentageOrdered B y: Dr. Jacobs on 01-21-2023 Basophils/100 WBC (Bld) 0.5 % 0-1 [facility] Chloride [Moles/Vol] 103 mmol/L 98-107 [facility] Eosinophils/100 WBC (Bld) 2.6 % 0-5 [facility] Glucose [Mass/Vol] 262 mg/dL 74-106 [facility] Comment on above: Glucose result great er than or equal to 200 mg/dLsuggests DIABETES MELLITUS per A.D.A. criteria. Neutrophils (Bld) [#/Vol] 4.7 10*3/uL 2.0-7.7 [facility] Neutrophils/100 WBC (Bld) 59.7 % 47-70 [facility] Potassium [Moles/Vol] 3.6 mmol/L 3.5-5.1 [facility] [place] Sodium [Moles/Vol] 138 mmol/L 136-145 [facility] WBC (Bld) [#/Vol] 7.9 10*3/uL 4.4-11.0 [facility] Blood erythrocytes count (nu mber/volume)Ordered By: Dr. Jacobs on 01-21-2023 RBC (Bld) [#/Vol] 4.32 10*6/uL 4.2-5.4 [facility] Blood hemoglobin measurement (mass/volume)Ordered By: Dr. Jacobs on 01-21-2023 Hemoglobin (Bld) [Mass/Vol] 13.8 g/dL 12.0-15.0 [facility] Blood lymphocytes/100 leukoc ytesOrdered By: Dr. Jacobs on 01-21-2023 Lymphocytes/100 WBC (Bld) 29.3 % 19-41 [facility] Blood monocytes/100 leukocyt esOrdered By: Dr. Jacbos on 01-21-2023 Monocytes/100 WBC (Bld) 7.6 % 0-10 [facility] Blood platelet mean volumeOr dered By: Dr. Jacobs on 01-21-2023 Platelet mean volume (Bld) [Entitic vol] 9.8 fL 6.2-12.0 [facility] Determination of erythrocyte mean corpuscular volume (MCV)Ordered By: Dr. Jacobs on 01-21-2023 MCV (RBC) [Entitic vol] 95.8 fL 81-99 [facility] Hematocrit Auto (Bld) [Volum e fraction]Ordered By: Dr. Jacobs on 01-21-2023 Hematocrit (Bld) [Volume fraction] 41.4 % 37-47 [facility] Laboratory - Chemistry and C hemistry - challengeOrdered By: Dr. Jacobs on 01-21-2023 CO2 [Moles/Vol] 27.0 mmol/L 21.0-32.0 [facility] Urea nitrogen/Creatinine [Mass ratio] 11.8 mg/mg 10-20 [facility] Laboratory - Hematology and Cell countsOrdered By: Dr. Jacobs on 01-21-2023 Erythrocyte distribution width (RBC) [Entitic vol] 44.4 fL 35.1-43.9 [facility] Erythrocyte distribution width (RBC) [Ratio] 12.7 % 11.6-14.6 [facility] Immature granulocytes/100 WBC (Bld) 0.300 % 0.0-0.9 [facility] Comment on above: IG% - Immature Granu locytes (promyelocytes, myelocytes and metamyelocytes) > 1% indicates that a LEFT SHIFT is Present. MCH (RBC) [Entitic mass] 31.9 pg 27.0-32.0 [facility] Nucleated RBC/100 WBC (Bld) [Ratio] 0 % 0-5 [facility] MCHC Auto (RBC) [Mass/Vol]Or dered By: Dr. Jacobs on 01-21-2023 MCHC (RBC) [Mass/Vol] 33.3 g/dL 32-36 [facility] [place] No Panel InformationOrdered By: Dr. Jacobs on 01-21-2023 Troponin I High Sensitivity < 3 pg/mL 3.0-54.0 [facility] Comment on above: Please Note: New Miri t Units and Gender Specific Reference Ranges. For more information see Policy Stat Procedure [place] High Sensitivity Troponin (TNIH) and attachments. D-Dimer Quantitative (PE/DVT) < 0.27 FEU/ug/m 0.27-0.49 [facility] Comment on above: NORMAL D-Dimer level (<0.50) indicates no DVT or PE. Estimated Creatinine Clearance Calc 65.97 ml/min [facility] Estimated GFR (MDRD) Amer 83 mL/min >60 [facility] Comment on above: GFR Calc Estimated GFR (MDRD) Non-Af Amer 69 mL/min >60 [facility] Comment on above: Non- GFR Calc Platelets bldOrdered By: Dr. Jacobs on 01-21-2023 Platelets (Bld) [#/Vol] 314 10*3/uL 150-450 [facility] Serum or plasma calcium alphonso urement (mass/volume)Ordered By: Dr. Jacobs on 01-21-2023 Calcium [Mass/Vol] 8.9 mg/dL 8.5-10.1 [facility] Serum or plasma creatinine m easurement (mass/volume)Ordered By: Dr. Jacobs on 01-21-2023 Creatinine [Mass/Vol] 0.93 mg/dL 0.55-1.02 [facility] Comment on above: The validity of the calculated GFR & GFRAA in patients over 70 years has not been determined. Clinical correlation is essential. Serum or plasma urea nitroge n measurement (mass/volume)Ordered By: Dr. Jacobs on 01-21-2023 Urea nitrogen [Mass/Vol] 11 mg/dL 7-18 [facility] Thin prep Papanicolaou smear with manual screeningOrdered By: Dr. Jacobs on 01-21-2023 Thin prep Papanicolaou smear with manual screening 8 5-15 [facility] Absolute lymphocyte countOrd ered By: Dr. Kay on 11-19-2022 Lymphocytes Auto (Unsp spec) [#/Vol] 2.69 10*3/uL 0.83-4.51 [facility] Basophil percentageOrdered B y: Dr. Kay on 11-19-2022 Basophils/100 WBC (Bld) 0.4 % 0-1 [facility] Chloride [Moles/Vol] 104 mmol/L 98-107 [facility] Eosinophils/100 WBC (Bld) 2.4 % 0-5 [facility] Glucose [Mass/Vol] 194 mg/dL 74-106 [facility] Comment on above: Fasting Glucose resu lt greater than or equal to 126 mg/dL suggests DIABETES MELLITUS per A.D.A. criteria. Neutrophils (Bld) [#/Vol] 1.7 10*3/uL 2.0-7.7 [facility] Neutrophils/100 WBC (Bld) 33.7 % 47-70 [facility] Potassium [Moles/Vol] 3.4 mmol/L 3.5-5.1 [facility] Sodium [Moles/Vol] 138 mmol/L 136-145 [facility] WBC (Bld) [#/Vol] 5.1 10*3/uL 4.4-11.0 [facility] Basophil percentageOrdered B y: Dr. Piña on 11-19-2022 Cholesterol [Mass/Vol] 144 mg/dL <200 [facility] Comment on above: <200 mg/dL Desirable 200-240 mg/dL Borderline >240 mg/dL High Risk Triglyceride [Mass/Vol] 227 mg/dL <199 [facility] Comment on above: The drugs N-Acetylcy steine and Metamizole may falsely depress this assay.Serum Triglycerides Reference Interval Normal <150 mg/dL Borderline high 150 - 199 mg/dL High 200 - 499 mg/dL Very High > or = 500 mg/dL Beta hCG serum qualOrdered B y: Dr. Piña on 11-19-2022 Beta HCG ( test) Ql Negative [facility] Blood erythrocytes count (nu mber/volume)Ordered By: Dr. Kay on 11-19-2022 RBC (Bld) [#/Vol] 3.74 10*6/uL 4.2-5.4 [facility] Blood hemoglobin measurement (mass/volume)Ordered By: Dr. Kay on 11-19-2022 Hemoglobin (Bld) [Mass/Vol] 12.0 g/dL 12.0-15.0 [facility] Blood lymphocytes/100 leukoc ytesOrdered By: Dr. Kay on 11-19-2022 Lymphocytes/100 WBC (Bld) 52.7 % 19-41 [facility] Blood monocytes/100 leukocyt esOrdered By: Dr. Kay on 11-19-2022 Monocytes/100 WBC (Bld) 10.6 % 0-10 [facility] Blood platelet mean volumeOr dered By: Dr. Kay on 11-19-2022 Platelet mean volume (Bld) [Entitic vol] 9.5 fL 6.2-12.0 [facility] Determination of erythrocyte mean corpuscular volume (MCV)Ordered By: Dr. Kay on 11-19-2022 MCV (RBC) [Entitic vol] 92.2 fL 81-99 [facility] Glucose Glucometer (BldC) [M ass/Vol]Ordered By: Dr. Kay on 11-19-2022 Glucose [Mass/Vol] 295 mg/dL 74-106 [facility] Comment on above: MANAGEMENT OF PATIEN T CARE PER NURSING PROTOCOL Hematocrit Auto (Bld) [Volum e fraction]Ordered By: Dr. Kay on 11-19-2022 Hematocrit (Bld) [Volume fraction] 34.5 % 37-47 [facility] Laboratory - Chemistry and C hemistry - challengeOrdered By: Dr. Kay on 11-19-2022 CO2 [Moles/Vol] 28.0 mmol/L 21.0-32.0 [facility] Urea nitrogen/Creatinine [Mass ratio] 14.3 mg/mg 10-20 [facility] Laboratory - CoagulationOrde red By: Dr. Tavares on 11-19-2022 aPTT Coag (Bld) [Time] 63.5 s 24.1-36.2 [facility] Laboratory - Hematology and Cell countsOrdered By: Dr. Kay on 11-19-2022 Erythrocyte distribution width (RBC) [Entitic vol] 41.3 fL 35.1-43.9 [facility] Erythrocyte distribution width (RBC) [Ratio] 12.2 % 11.6-14.6 [facility] Immature granulocytes/100 WBC (Bld) 0.200 % 0.0-0.9 [facility] Comment on above: IG% - Immature Granu locytes (promyelocytes, myelocytes and metamyelocytes) > 1% indicates that a LEFT SHIFT is Present. MCH (RBC) [Entitic mass] 32.1 pg 27.0-32.0 [facility] Nucleated RBC/100 WBC (Bld) [Ratio] 0 % 0-5 [facility] MCHC Auto (RBC) [Mass/Vol]Or dered By: Dr. Kay on 11-19-2022 MCHC (RBC) [Mass/Vol] 34.8 g/dL 32-36 [facility] [place] No Panel InformationOrdered By: Dr. Kay on 11-19-2022 Estimated Creatinine Clearance Calc 97.38 ml/min [facility] Estimated GFR (MDRD) Amer 131 mL/min >60 [facility] Comment on above: GFR Calc Estimated GFR (MDRD) Non-Af Amer 108 mL/min >60 [facility] Comment on above: Non- GFR Calc No Panel InformationOrdered By: Dr. Piña on 11-19-2022 Troponin I High Sensitivity 307 pg/mL 3.0-54.0 [facility] Comment on above: Critical Result(s) C alled at: 04:53:08 11/19/2022 by: Kannan BRAUN RN ([facility]) Results read back by same. Please Note: New Test Units and Gender Specific Reference Ranges. For more information see Policy Stat Procedure [place] High Sensitivity Troponin (TNIH) and attachments. Platelets bldOrdered By: Dr. Kay on 11-19-2022 Platelets (Bld) [#/Vol] 194 10*3/uL 150-450 [facility] Serum or plasma calcium alphonso urement (mass/volume)Ordered By: Dr. Kay on 11-19-2022 Calcium [Mass/Vol] 7.7 mg/dL 8.5-10.1 [facility] Serum or plasma cholesterol in HDL measurement (mass/volume)Ordered By: Dr. Piña on 11-19-2022 Cholesterol in HDL [Mass/Vol] 42 mg/dL >40 [facility] Comment on above: The drugs N-Acetylcy steine and Metamizole may falsely depress this assay. Reference Range HDL <40 mg/dL Low HDL Cholesterol HDL >or= 60 mg/dL High HDL Cholesterol Serum or plasma cholesterol in VLDL measurement (mass/volume)Ordered By: Dr. Piña on 11-19-2022 Cholesterol in VLDL [Mass/Vol] 45 mg/dL 5-40 [facility] Serum or plasma creatinine m easurement (mass/volume)Ordered By: Dr. Kay on 11-19-2022 Creatinine [Mass/Vol] 0.63 mg/dL 0.55-1.02 [facility] [place] Comment on above: The validity of the calculated GFR & GFRAA in patients over 70 years has not been determined. Clinical correlation is essential. Serum or plasma low density lipoprotein (LDL) cholesterol measurement (mass/volume)Ordered By: Dr. Piña on 11-19-2022 Cholesterol in LDL [Mass/Vol] 57 mg/dL 0-130 [facility] Serum or plasma urea nitroge n measurement (mass/volume)Ordered By: Dr. Kay on 11-19-2022 Urea nitrogen [Mass/Vol] 9 mg/dL 7-18 [facility] Thin prep Papanicolaou smear with manual screeningOrdered By: Dr. Kay on 11-19-2022 Thin prep Papanicolaou smear with manual screening 6 5-15 [facility] Basophil percentageOrdered B y: Dr. Piña on 11-18-2022 Bilirubin [Mass/Vol] 0.50 mg/dL 0.20-1.00 [facility] Comment on above: For patients on eltr ombopag therapy, use of Dimension [place] TBIL is not recommended. Protein [Mass/Vol] 7.4 g/dL 6.4-8.2 [facility] Direct bilirubinOrdered By: Dr. Piña on 11-18-2022 Bilirubin.direct [Mass/Vol] 0.13 mg/dL 0.00-0.30 [facility] INR in Blood by Coagulation assayOrdered By: Dr. Tavares on 11-18-2022 INR Coag (Bld) [Relative time] 1.0 {INR} [facility] Laboratory - Chemistry and C hemistry - challengeOrdered By: Dr. Piña on 11-18-2022 ALP [Catalytic activity/Vol] 82 U/L 45-117 [facility] ALT [Catalytic activity/Vol] 33 U/L 13-56 [facility] Globulin (S) [Mass/Vol] 4.0 g/dL 2.2-4.2 [facility] Laboratory - CoagulationOrde red By: Dr. Tavares on 11-18-2022 PT Coag (PPP) [Time] 12.9 s 11.7-14.9 [facility] No Panel InformationOrdered By: Dr. Tavares on 11-18-2022 D-Dimer Quantitative (PE/DVT) 0.40 FEU/ug/m 0.27-0.49 [facility] Comment on above: NORMAL D-Dimer level (<0.50) indicates no DVT or PE. Serum or plasma albumin alphonso urement (mass/volume)Ordered By: Dr. Piña on 11-18-2022 Albumin [Mass/Vol] 3.4 g/dL 3.2-5.0 [facility] Thin prep Papanicolaou smear with manual screeningOrdered By: Dr. Piña on 11-18-2022 Thin prep Papanicolaou smear with manual screening 26 U/L 15-37 [facility] Absolute lymphocyte counton 09-05-2022 Lymphocytes Auto (Unsp spec) [#/Vol] 3.03 10*3/uL 0.83-4.51 [facility] Work Phone: Basophil percentageon 2021 Basophils/100 WBC (Bld) 0.5 % 0-1 [facility] Work Phone: Chloride [Moles/Vol] 105 mmol/L 98-107 [facility] Work Phone: Eosinophils/100 WBC (Bld) 3.3 % 0-5 [facility] Work Phone: Glucose [Mass/Vol] 246 mg/dL 74-106 [facility] Work Phone: Comment on above: Glucose result great er than or equal to 200 mg/dLsuggests DIABETES MELLITUS per A.D.A. criteria. Neutrophils (Bld) [#/Vol] 3.8 10*3/uL 2.0-7.7 [facility] Work Phone: [phone] Neutrophils/100 WBC (Bld) 48.3 % 47-70 [facility] Work Phone: [phone] Potassium [Moles/Vol] 3.6 mmol/L 3.5-5.1 [facility] [place] Work Phone: Sodium [Moles/Vol] 142 mmol/L 136-145 [facility] Work Phone: WBC (Bld) [#/Vol] 7.8 10*3/uL 4.4-11.0 [facility] Work Phone: [phone] Blood erythrocytes count (nu mber/volume)on 09-05-2022 RBC (Bld) [#/Vol] 4.17 10*6/uL 4.2-5.4 [facility] Work Phone: Blood hemoglobin measurement (mass/volume)on 09-05-2022 Hemoglobin (Bld) [Mass/Vol] 13.1 g/dL 12.0-15.0 [facility] Work Phone: Blood lymphocytes/100 leukoc yteson 09-05-2022 Lymphocytes/100 WBC (Bld) 39.0 % 19-41 [facility] Work Phone: Blood monocytes/100 leukocyt eson 09-05-2022 Monocytes/100 WBC (Bld) 8.5 % 0-10 [facility] Work Phone: Blood platelet mean volumeon 09-05-2022 Platelet mean volume (Bld) [Entitic vol] 9.6 fL 6.2-12.0 [facility] Work Phone: Determination of erythrocyte mean corpuscular volume (MCV)on 09-05-2022 MCV (RBC) [Entitic vol] 92.1 fL 81-99 [facility] Work Phone: Hematocrit Auto (Bld) [Volum e fraction]on 09-05-2022 Hematocrit (Bld) [Volume fraction] 38.4 % 37-47 [facility] Work Phone: Laboratory - Chemistry and C hemistry - challengeon 09-05-2022 CO2 [Moles/Vol] 27.0 mmol/L 21.0-32.0 [facility] Work Phone: Urea nitrogen/Creatinine [Mass ratio] 16.7 mg/mg 10-20 [facility] Work Phone: Laboratory - Hematology and Cell countson 09-05-2022 Erythrocyte distribution width (RBC) [Entitic vol] 42.3 fL 35.1-43.9 [facility] Work Phone: Erythrocyte distribution width (RBC) [Ratio] 12.7 % 11.6-14.6 [facility] Work Phone: Immature granulocytes/100 WBC (Bld) 0.400 % 0.0-0.9 [facility] Work Phone: Comment on above: IG% - Immature Granu locytes (promyelocytes, myelocytes and metamyelocytes) > 1% indicates that a LEFT SHIFT is Present. MCH (RBC) [Entitic mass] 31.4 pg 27.0-32.0 [facility] Work Phone: Nucleated RBC/100 WBC (Bld) [Ratio] 0 % 0-5 [facility] Work Phone: MCHC Auto (RBC) [Mass/Vol]on 09-05-2022 MCHC (RBC) [Mass/Vol] 34.1 g/dL 32-36 [facility] [place] Work Phone: No Panel Informationon 09-05 Estimated Creatinine Clearance Calc 78.65 ml/min [facility] Work Phone: Estimated GFR (MDRD) Amer 103 mL/min >60 [facility] Work Phone: Comment on above: GFR Calc Estimated GFR (MDRD) Non-Af Amer 85 mL/min >60 [facility] Work Phone: Comment on above: Non- GFR Calc Ethyl Alcohol Level 237.0 mg/dL [facility] Work Phone: Comment on above: The serum:whole bloo d ethanol ratio is approximately 1.14and varies slightly with hematocrit. Medical Alcohol reference interval and critical value innon-tolerant individuals; 50 - 100 Impairment 100 Intoxication 100 - 250 Severe Poisoning 250 - 400 Deep/possible fatal coma Platelets bldon 09-05-2022 Platelets (Bld) [#/Vol] 318 10*3/uL 150-450 [facility] Work Phone: Serum or plasma calcium alphonso urement (mass/volume)on 09-05-2022 Calcium [Mass/Vol] 8.8 mg/dL 8.5-10.1 [facility] Work Phone: Serum or plasma creatinine m easurement (mass/volume)on 09-05-2022 Creatinine [Mass/Vol] 0.78 mg/dL 0.55-1.02 [facility] [place] Work Phone: Comment on above: The validity of the calculated GFR & GFRAA in patients over 70 years has not been determined. Clinical correlation is essential. Serum or plasma urea nitroge n measurement (mass/volume)on 09-05-2022 Urea nitrogen [Mass/Vol] 13 mg/dL 7-18 [facility] Work Phone: Thin prep Papanicolaou smear with manual screeningon 09-05-2022 Thin prep Papanicolaou smear with manual screening 15 [facility] Work Phone: XR HIP GENERAL 3V PELV/AP/LA T LEFTon 07-21-2022 [facility] XR Pelvis and Hip - left AP and Lateral frogon 07-21-2022 IMPRESSION: Negative pelvis and left hip. Bariatric Nurse: PAM Transcribe Date/Time: Jul 21 2022 7:27P Dictated by : BETINA MAGANA MD This examination was interpreted and the report reviewed and electronically signed by: BETINA MAGANA MD on Jul 21 2022 7:29PM [facility] DIVISION OF RADIOLOGY * * [...] fracture or dislocation. DIVISION [facility] RADIOLOGY [facility] * * *Final Report* [...] IMPRESSION IMPRESSION: Negative pelvis and left hip. Bariatric Nurse: PSCB Transcribe Date/Time: Jul 21 2022 7:27P Dictated by : BETINA MAGANA MD This examination was interpreted and the report reviewed and electronically signed by: BETINA MAAGNA MD on Jul 21 2022 7:29PM EST [facility] Radiology Study [facility]narrative[facility] Pelvis and Hip - left AP and Lateral frogOrdered By: Ccf Provider on 07-21-2022 [facility] Laboratory - Microbiology an d Antimicrobial susceptibilityon 05-31-2022 SARS-CoV-2 (COVID-19) RNA ALLEY+probe Ql (Unsp spec) Not detected [facility] Work Phone: [phone] Absolute lymphocyte counton 02-22-2022 Lymphocytes Auto (Unsp spec) [#/Vol] 2.29 10*3/uL 0.83-4.51 [facility] Work Phone: Basophil percentageon 2021 Basophils/100 WBC (Bld) 0.6 % 0-1 [facility] Work Phone: Chloride [Moles/Vol] 103 mmol/L 98-107 [facility] Work Phone: Eosinophils/100 WBC (Bld) 4.7 % 0-5 [facility] Work Phone: Glucose [Mass/Vol] 207 mg/dL 74-106 [facility] Work Phone: Comment on above: Glucose result great er than or equal to 200 mg/dLsuggests DIABETES MELLITUS per A.D.A. criteria. Neutrophils (Bld) [#/Vol] 3.2 10*3/uL 2.0-7.7 [facility] Work Phone: Neutrophils/100 WBC (Bld) 49.0 % 47-70 [facility] Work Phone: Potassium [Moles/Vol] 3.6 mmol/L 3.5-5.1 [facility] [place] Work Phone: Sodium [Moles/Vol] 135 mmol/L 136-145 [facility] Work Phone: [phone] WBC (Bld) [#/Vol] 6.6 10*3/uL 4.4-11.0 [facility] Work Phone: Blood erythrocytes count (nu mber/volume)on 02-22-2022 RBC (Bld) [#/Vol] 4.50 10*6/uL [facility]: Blood hemoglobin measurement (mass/volume)on 02-22-2022 Hemoglobin (Bld) [Mass/Vol] 13.8 g/dL 12.0-15.0 [facility] Work Phone: Blood lymphocytes/100 leukoc yteson 02-22-2022 Lymphocytes/100 WBC (Bld) 34.9 % 19-41 [facility] Work Phone: [phone] Blood monocytes/100 leukocyt eson 02-22-2022 Monocytes/100 WBC (Bld) 10.2 % 0-10 [facility] Work Phone: Blood platelet mean volumeon 02-22-2022 Platelet mean volume (Bld) [Entitic vol] 10.3 fL 6.2-12.0 [facility] Work Phone: [phone] Determination of erythrocyte mean corpuscular volume (MCV)on 02-22-2022 MCV (RBC) [Entitic vol] 88.9 fL 81-99 [facility] Work Phone: Hematocrit Auto (Bld) [Volum e fraction]on 02-22-2022 Hematocrit (Bld) [Volume fraction] 40.0 % 37-47 [facility] Work Phone: Laboratory - Chemistry and C hemistry - challengeon 02-22-2022 CO2 [Moles/Vol] 27.0 mmol/L 21.0-32.0 [facility] Work Phone: Urea nitrogen/Creatinine [Mass ratio] 12.3 mg/mg 10-20 [facility] Work Phone: Laboratory - Hematology and Cell countson 02-22-2022 Erythrocyte distribution width (RBC) [Entitic vol] 39.8 fL 35.1-43.9 [facility] Work Phone: Erythrocyte distribution width (RBC) [Ratio] 12.2 % 11.6-14.6 [facility] Work Phone: Immature granulocytes/100 WBC (Bld) 0.600 % 0.0-0.9 [facility] Work Phone: Comment on above: IG% - Immature Granu locytes (promyelocytes, myelocytes and metamyelocytes) > 1% indicates that a LEFT SHIFT is Present. MCH (RBC) [Entitic mass] 30.7 pg 27.0-32.0 [facility] Work Phone: Nucleated RBC/100 WBC (Bld) [Ratio] 0 % 0-5 [facility] Work Phone: MCHC Auto (RBC) [Mass/Vol]on 02-22-2022 MCHC (RBC) [Mass/Vol] 34.5 g/dL 32-36 [facility] [place] Work Phone: No Panel Informationon 02-22 D-Dimer Quantitative (PE/DVT) < 0.27 FEU/ug/m 0.27-0.49 [facility] Work Phone: Comment on above: NORMAL D-Dimer level (<0.50) indicates no DVT or PE. Estimated Creatinine Clearance Calc 84.92 ml/min [facility] Work Phone: Estimated GFR (MDRD) Amer 111 mL/min >60 [facility] Work Phone: Comment on above: GFR Calc Estimated GFR (MDRD) Non-Af Amer 91 mL/min >60 [facility] Work Phone: Comment on above: Non- GFR Calc Troponin I High Sensitivity < 3 pg/mL 3.0-54.0 [facility] Work Phone: Comment on above: Please Note: New Miri t Units and Gender Specific Reference Ranges. For more information see Policy Stat Procedure [place] High Sensitivity Troponin (TNIH) and attachments. Platelets bldon 02-22-2022 Platelets (Bld) [#/Vol] 311 10*3/uL 150-450 [facility] Work Phone: Serum or plasma calcium alphonso urement (mass/volume)on 02-22-2022 Calcium [Mass/Vol] 9.4 mg/dL 8.5-10.1 [facility] Work Phone: Serum or plasma creatinine m easurement (mass/volume)on 02-22-2022 Creatinine [Mass/Vol] 0.73 mg/dL 0.55-1.02 [facility] [place] Work Phone: Comment on above: The validity of the calculated GFR & GFRAA in patients over 70 years has not been determined. Clinical correlation is essential. Serum or plasma urea nitroge n measurement (mass/volume)on 02-22-2022 Urea nitrogen [Mass/Vol] 9 mg/dL 7-18 [facility] Work Phone: Thin prep Papanicolaou smear with manual screeningon 02-22-2022 Thin prep Papanicolaou smear with manual screening 5 5-15 [facility] Work Phone: ALCOHOLon 06-10-2021 ALCOHOL Canceled Normal [facility] Comment on above: Order Comment: TEST ALCOHOL WAS CANCELLED, 06/10/2021 20:44 Result Comment: FOR MEDICAL USE ONLY. Performed By: #### A #### [place] [id number] [place] [id number] Provider Note - ED v2on 05-29 Provider [...] made to minimize errors. Minor errors in field crop farmworker may be present. Please call if questions.. [...] documented data. SIGNIFICANT EVENTS: No documented data. BOLT LABELER: Is : no(1) Is : no(1) RESULTS/VITAL [...] From Triage - ED 10-Jun-2021 20:27 [facility] Triage - EDon 06-10-2021 Triage - [...] BMI (kg/m2): 27.531 Calculated BSA (m2) 1.81 [place] Coma Scale: Best Eye Response: (E4) spontaneous [...] Updated: 10-Jun-2021 20:30 by Rocky Hebert (RN) [facility] Vital Signs Date Time Vital Sign Value Performing Clinician Facility 07-20-2025 13:05-0400 Heart rate 79 /min Abisai Haley MD Work Phone: [phone] [address] 07-20-2025 13:05-0400 Respiratory rate 16 /min Abisai Haley MD Work Phone: [phone] [place] [address] 07-20-2025 07:27-0400 Inhaled oxygen flow rate 2 L/min Abisai Haley MD Work Phone: [phone] [place] [address] 07-20-2025 07:27-0400 SaO2% (BldA) [Mass fraction] 94 % Abisai Haley MD Work Phone: [phone] [place] [address] 07-20-2025 03:33-0400 Body temperature 98.7 [degF] Abisai Haley MD Work Phone: [phone] [address] 07-20-2025 03:33-0400 Diastolic blood pressure 69 mm[Hg] Abisai Haley MD Work Phone: [phone] [place] [address] 07-20-2025 03:33-0400 Systolic blood pressure 116 mm[Hg] Abisai Haley MD Work Phone: [phone] [address] 07-20-2025 02:08-0400 Body mass index (BMI) [Ratio] 24.1 kg/m2 Abisai Haley MD Work Phone: [phone] [address] 07-20-2025 02:08-0400 Body weight 64.1 kg Abisai Haley MD Work Phone: [phone] [address] 07-18-2025 15:17-0400 Body height 162.56 cm Abisai Haley MD Work Phone: [phone] [place] [address] 07-17-2025 13:12-0400 Body temperature 98.4 [degF] Abisai Haley MD Work Phone: [facility] 07-17-2025 13:12-0400 Diastolic blood pressure 97 mm[Hg] Abisai Haley MD Work Phone: [facility] 07-17-2025 13:12-0400 Heart rate 88 /min Abisai Haley MD Work Phone: [facility] 07-17-2025 13:12-0400 Respiratory rate 16 /min Abisai Haley MD Work Phone: [facility] 07-17-2025 13:12-0400 SaO2% (BldA) [Mass fraction] 99 % Abisai Haley MD Work Phone: [facility] 07-17-2025 13:12-0400 Systolic blood pressure 181 mm[Hg] Abisai Haley MD Work Phone: [facility] 07-17-2025 10:14-0400 Body height 162.56 cm Abisai Haley MD Work Phone: [facility] 07-17-2025 10:14-0400 Body mass index (BMI) [Ratio] 20.7 kg/m2 Abisai Haley MD Work Phone: [facility] 07-17-2025 10:14-0400 Body weight 54.93 kg Abisai Haley MD Work Phone: [facility] 05-28-2025 13:43-0400 Body temperature 98 [degF] Abisai Haley MD Work Phone: [facility] 05-28-2025 13:43-0400 Diastolic blood pressure 77 mm[Hg] Abisai Haley MD Work Phone: [facility] 05-28-2025 13:43-0400 Heart rate 83 /min Abisai Haley MD Work Phone: [facility] 05-28-2025 13:43-0400 Respiratory rate 16 /min Abisai Haley MD Work Phone: [facility] 05-28-2025 13:43-0400 SaO2% (BldA) [Mass fraction] 96 % Abisai Haley MD Work Phone: [facility] 05-28-2025 13:43-0400 Systolic blood pressure 117 mm[Hg] Abisai Haley MD Work Phone: [facility] 05-27-2025 08:08-0400 Inhaled oxygen flow rate 2 L/min Abisai Haley MD Work Phone: [facility] 05-25-2025 02:53-0400 Body height 162.56 cm Abisai Haley MD Work Phone: [facility] 05-25-2025 02:53-0400 Body mass index (BMI) [Ratio] 21.4 kg/m2 Abisai Haley MD Work Phone: [facility] 05-25-2025 02:53-0400 Body weight 56.7 kg Abisai Haley MD Work Phone: [facility] 05-25-2025 02:24-0400 Respiratory rate 16 /min Abisai Haley MD Work Phone: [facility] 05-25-2025 02:24-0400 SaO2% (BldA) [Mass fraction] 96 % Abisai Haley MD Work Phone: [facility] 05-25-2025 00:56-0400 Body temperature 98.3 [degF] Abisai Haley MD Work Phone: [facility] 05-25-2025 00:56-0400 Diastolic blood pressure 63 mm[Hg] Abisai Haley MD Work Phone: [facility] 05-25-2025 00:56-0400 Heart rate 99 /min Abisai Halye MD Work Phone: [facility] 05-25-2025 00:56-0400 Systolic blood pressure 141 mm[Hg] Abisai Haley MD Work Phone: [facility] 05-24-2025 23:09-0400 Body height 162.56 cm Abisai Haley MD Work Phone: [facility] 05-24-2025 23:09-0400 Body mass index (BMI) [Ratio] 21.7 kg/m2 Abisai Haley MD Work Phone: [facility] 05-24-2025 23:09-0400 Body weight 57.4 kg Abisai Haley MD Work Phone: [facility] 05-06-2025 11:28-0400 Body temperature 97.9 [degF] Abisai Haley MD Work Phone: [facility] 05-06-2025 11:28-0400 Diastolic blood pressure 80 mm[Hg] Abisai Haley MD Work Phone: [facility] 05-06-2025 11:28-0400 Heart rate 75 /min Abisai Haley MD Work Phone: [facility] 05-06-2025 11:28-0400 Respiratory rate 16 /min Abisai Haley MD Work Phone: [facility] 05-06-2025 11:28-0400 SaO2% (BldA) [Mass fraction] 92 % Abisai Haley MD Work Phone: [facility] 05-06-2025 11:28-0400 Systolic blood pressure 125 mm[Hg] Abisai Haley MD Work Phone: [facility] 05-06-2025 02:33-0400 Inhaled oxygen concentration 21 % Abisai Haley MD Work Phone: [facility] 05-05-2025 20:11-0400 Inhaled oxygen flow rate 2 L/min Abisai Haley MD Work Phone: [facility] 05-04-2025 11:23-0400 Body height 162.56 cm Abisai Haley MD Work Phone: [facility] 05-04-2025 11:23-0400 Body weight 59.5 kg Abisai Haley MD Work Phone: [facility] 04-26-2025 18:15-0400 Body mass index (BMI) [Ratio] 22.5 kg/m2 Abisai Haley MD Work Phone: [facility] 04-26-2025 17:00-0400 Diastolic blood pressure 86 mm[Hg] Abisai Haley MD Work Phone: [facility] 04-26-2025 17:00-0400 Heart rate 90 /min Abisai Haley MD Work Phone: [facility] 04-26-2025 17:00-0400 Respiratory rate 29 /min Abisai Haley MD Work Phone: [facility] 04-26-2025 17:00-0400 SaO2% (BldA) [Mass fraction] 95 % Abisai Haley MD Work Phone: [facility] 04-26-2025 17:00-0400 Systolic blood pressure 169 mm[Hg] Abisai Haley MD Work Phone: [facility] 04-26-2025 16:19-0400 Body temperature 98.1 [degF] Abisai Haley MD Work Phone: [facility] 04-26-2025 13:42-0400 Body height 162.56 cm Abisai Haley MD Work Phone: [facility] 04-26-2025 13:42-0400 Body mass index (BMI) [Ratio] 22.3 kg/m2 Abisai Haley MD Work Phone: [facility] 04-26-2025 13:42-0400 Body weight 58.96 kg Abisai Haley MD Work Phone: [facility] 04-12-2025 00:24-0400 Body temperature 98 [degF] Abisai Haley MD Work Phone: [facility] 04-12-2025 00:24-0400 Diastolic blood pressure 66 mm[Hg] Abisai Haley MD Work Phone: [place] [address]-15-2025 00:24-0400 Heart rate 78 /min Abisai Haley MD Work Phone: 5(792)665-692178 [place] [address] 04-12-2025 00:24-0400 Respiratory rate 16 /min Abisai Haley MD Work Phone: 3(374)425-100178 [place] [address] 04-12-2025 00:24-0400 SaO2% (BldA) [Mass fraction] 100 % Abisai Haley MD Work Phone: 6(096)756-853278 [place] [address] 04-12-2025 00:24-0400 Systolic blood pressure 125 mm[Hg] Abisai Haley MD Work Phone: 1(417)095-980178 [place] [address] 04-11-2025 23:20-0400 Inhaled oxygen flow rate 2 L/min Abisai Haley MD Work Phone: 2(966)311-284478 [place] [address] 04-11-2025 21:46-0400 Body mass index (BMI) [Ratio] 24.4 kg/m2 Abisai Haley MD Work Phone: 9(964)869-146878 [place] [address] 04-11-2025 21:46-0400 Body weight 64.6 kg Abisai Haley MD Work Phone: 0(817)208-275478 [place] [address] 04-11-2025 21:42-0400 Body height 162.56 cm Abisai Haley MD Work Phone: 8(772)306-191478 [place] [address] 04-04-2025 17:00-0400 Heart rate 97 /min Abisai Haley MD Work Phone: 8(132)742-587978 [place] [address] 04-04-2025 17:00-0400 Respiratory rate 25 /min Abisai Haley MD Work Phone: 7(056)641-467278 [place] [address] 04-04-2025 16:03-0400 Body temperature 98.4 [degF] Abisai Haley MD Work Phone: 1(887)922-553978 [place] [address] 04-04-2025 16:03-0400 Diastolic blood pressure 88 mm[Hg] Abisai Haley MD Work Phone: 8(207)837-817778 [place] [address] 04-04-2025 16:03-0400 SaO2% (BldA) [Mass fraction] 97 % Abisai Haley MD Work Phone: [facility] 04-04-2025 16:03-0400 Systolic blood pressure 157 mm[Hg] Abisai Haley MD Work Phone: [facility] 04-04-2025 11:51-0400 Body mass index (BMI) [Ratio] 25.1 kg/m2 Abisai Haley MD Work Phone: [facility] 04-04-2025 11:51-0400 Body weight 66.4 kg Abisai Haley MD Work Phone: [facility] 04-04-2025 10:24-0400 Body height 162.56 cm Abisai Haley MD Work Phone: [facility] 04-22-2024 13:48-0400 Body mass index (BMI) [Ratio] 29.6 kg/m2 Aretha Praisler-Wood TELETYPEWRITER INSTALLER.SPRINKLER REPAIR TECHNICIAN Work Phone: [facility] 04-22-2024 13:48-0400 Body temperature 97.39 [degF] Aretha Praisler-Wood TELETYPEWRITER INSTALLER.SPRINKLER REPAIR TECHNICIAN Work Phone: [facility] 04-22-2024 13:48-0400 Body weight 75.8 kg Aretha Praisler-Wood TELETYPEWRITER INSTALLER.SPRINKLER REPAIR TECHNICIAN Work Phone: [facility] 04-22-2024 13:48-0400 Diastolic blood pressure 84 mm[Hg] Aretha Praisler-Wood TELETYPEWRITER INSTALLER.SPRINKLER REPAIR TECHNICIAN Work Phone: [facility] 04-22-2024 13:48-0400 Heart rate 115 /min Aretha Praisler-Wood TELETYPEWRITER INSTALLER.SPRINKLER REPAIR TECHNICIAN Work Phone: [facility] 04-22-2024 13:48-0400 Respiratory rate 20 /min Aretha Praisler-Wood TELETYPEWRITER INSTALLER.SPRINKLER REPAIR TECHNICIAN Work Phone: [facility] 04-22-2024 13:48-0400 SaO2% (BldA) [Mass fraction] 98 % Aretha Praisler-Wood TELETYPEWRITER INSTALLER.SPRINKLER REPAIR TECHNICIAN Work Phone: [facility] 04-22-2024 13:48-0400 Systolic blood pressure 120 mm[Hg] Aretha Chandu RIGGSSPRINKLER REPAIR TECHNICIAN Work Phone: [facility] 03-22-2024 07:08-0400 Body temperature 97.7 [degF] DO Milana Jose Work Phone: [facility] 03-22-2024 07:08-0400 Diastolic blood pressure 84 mm[Hg] DO Milana Jose Work Phone: [facility] 03-22-2024 07:08-0400 Heart rate 102 /min DO Milana Jose Work Phone: [facility] 03-22-2024 07:08-0400 Respiratory rate 17 /min DO Milana Jose Work Phone: [facility] 03-22-2024 07:08-0400 SaO2% (BldA) [Mass fraction] 95 % DO Milana Jose Work Phone: [facility] 03-22-2024 07:08-0400 Systolic blood pressure 134 mm[Hg] DO Milana Jose Work Phone: [facility] 01-24-2024 21:30-0500 Body temperature 96.9 [degF] DO Milana Jose Work Phone: [facility] 01-24-2024 21:30-0500 Diastolic blood pressure 61 mm[Hg] DO Milana Jose Work Phone: [facility] 01-24-2024 21:30-0500 Heart rate 96 /min DO Milana Jose Work Phone: [facility] 01-24-2024 21:30-0500 Respiratory rate 16 /min DO Milana Jose Work Phone: [facility] 01-24-2024 21:30-0500 SaO2% (BldA) [Mass fraction] 98 % DO Milana Jose Work Phone: [facility] 01-24-2024 21:30-0500 Systolic blood pressure 149 mm[Hg] DO Milana Jose Work Phone: [facility] 01-24-2024 21:25-0500 Body mass index (BMI) [Ratio] 28 kg/m2 DO Milana Jose Work Phone: [facility] 01-24-2024 21:25-0500 Body weight 74 kg DO Milana Jose Work Phone: [facility] 01-24-2024 16:39-0500 Body height 162.56 cm DO Milana Jose Work Phone: [facility] 10-19-2023 10:54-0500 Body height 162.56 cm DO Milana Jose Work Phone: [facility] 10-19-2023 10:54-0500 Body mass index (BMI) [Ratio] 26.2 kg/m2 DO Milana Jose Work Phone: [facility] 10-19-2023 10:54-0500 Body temperature 98.4 [degF] DO Milana Jose Work Phone: [facility] 10-19-2023 10:54-0500 Body weight 69.39 kg DO Milana Jose Work Phone: [facility] 10-19-2023 10:54-0500 Diastolic blood pressure 80 mm[Hg] DO Milana Jose Work Phone: [facility] 10-19-2023 10:54-0500 Heart rate 97 /min DO Milana Jose Work Phone: [facility] 10-19-2023 10:54-0500 Respiratory rate 16 /min DO Milana Jose Work Phone: [facility] 10-19-2023 10:54-0500 SaO2% (BldA) [Mass fraction] 90 % DO Milana Jose Work Phone: [facility] 10-19-2023 10:54-0500 Systolic blood pressure 147 mm[Hg] DO Milana Jose Work Phone: [facility] 10-10-2023 17:58-0500 Diastolic blood pressure 68 mm[Hg] DO Milana Jose Work Phone: [facility] 10-10-2023 17:58-0500 Heart rate 81 /min DO Milana Jose Work Phone: [facility] 10-10-2023 17:58-0500 Respiratory rate 16 /min DO Milana Jose Work Phone: [facility] 10-10-2023 17:58-0500 SaO2% (BldA) [Mass fraction] 97 % DO Milana Jose Work Phone: [facility] 10-10-2023 17:58-0500 Systolic blood pressure 128 mm[Hg] DO Milana Jose Work Phone: [facility] 10-10-2023 15:25-0500 Body mass index (BMI) [Ratio] 26.3 kg/m2 DO Milana Jose Work Phone: [facility] 10-10-2023 15:25-0500 Body temperature 98.4 [degF] DO Milana Jose Work Phone: [facility] 10-10-2023 15:25-0500 Body weight 69.58 kg DO Milana Jose Work Phone: [facility] 09-27-2023 15:27-0400 Body temperature 98.2 [degF] DO Milana Jose Work Phone: [facility] 09-27-2023 15:27-0400 Diastolic blood pressure 78 mm[Hg] DO Milana Jose Work Phone: [facility] 09-27-2023 15:27-0400 Heart rate 92 /min DO Milana Jose Work Phone: [facility] 09-27-2023 15:27-0400 Respiratory rate 17 /min DO Milana Jose Work Phone: [facility] 09-27-2023 15:27-0400 SaO2% (BldA) [Mass fraction] 92 % DO Milana Jose Work Phone: [facility] 09-27-2023 15:27-0400 Systolic blood pressure 145 mm[Hg] DO Milana Jose Work Phone: [facility] 09-15-2023 12:21-0400 Body temperature 98.6 [degF] DO Milanagillian Christensennger Work Phone: [facility] 09-15-2023 12:21-0400 Diastolic blood pressure 83 mm[Hg] DO Milana Jose Work Phone: [facility] 09-15-2023 12:21-0400 Heart rate 93 /min DO Milana Jose Work Phone: [facility] 09-15-2023 12:21-0400 Respiratory rate 17 /min DO Milanagillian Christensennger Work Phone: [facility] 09-15-2023 12:21-0400 SaO2% (BldA) [Mass fraction] 94 % DO Milana Jose Work Phone: [facility] 09-15-2023 12:21-0400 Systolic blood pressure 149 mm[Hg] DO Milana Jose Work Phone: [facility] 08-25-2023 10:00-0400 Body height 162.56 cm DO Milana Jose Work Phone: [facility] 08-25-2023 10:00-0400 Body mass index (BMI) [Ratio] 28.3 kg/m2 DO Milana Jose Work Phone: [facility] 08-25-2023 10:00-0400 Body weight 74.84 kg DO Milana Jose Work Phone: [facility] 08-25-2023 10:00-0400 Diastolic blood pressure 85 mm[Hg] DO Milana Jose Work Phone: [facility] 08-25-2023 10:00-0400 Heart rate 63 /min DO Milana Jose Work Phone: [facility] 08-25-2023 10:00-0400 Respiratory rate 18 /min DO Milana Jose Work Phone: [facility] 08-25-2023 10:00-0400 SaO2% (BldA) [Mass fraction] 96 % DO Milana Jose Work Phone: [facility] 08-25-2023 10:00-0400 Systolic blood pressure 136 mm[Hg] DO Milana Jose Work Phone: [facility] 08-23-2023 15:04-0400 Body temperature 97.6 [degF] DO Milana Jose Work Phone: [facility] 08-23-2023 15:04-0400 Diastolic blood pressure 78 mm[Hg] DO Milana Jose Work Phone: [facility] 08-23-2023 15:04-0400 Heart rate 78 /min DO Milana Jose Work Phone: [facility] 08-23-2023 15:04-0400 Respiratory rate 14 /min DO Milana Jose Work Phone: [facility] 08-23-2023 15:04-0400 SaO2% (BldA) [Mass fraction] 99 % DO Milana Jose Work Phone: [facility] 08-23-2023 15:04-0400 Systolic blood pressure 124 mm[Hg] DO Milana Jose Work Phone: [facility] 08-23-2023 11:44-0400 Body height 162.56 cm DO Milana Jose Work Phone: [facility] 08-23-2023 11:44-0400 Body mass index (BMI) [Ratio] 28.3 kg/m2 DO Milana Jose Work Phone: [facility] 08-23-2023 11:44-0400 Body weight 74.88 kg DO Milana Jose Work Phone: [facility] 07-29-2023 17:56-0400 Diastolic blood pressure 74 mm[Hg] DO Milana Jose Work Phone: [facility] 07-29-2023 17:56-0400 Heart rate 73 /min DO Milana Jose Work Phone: [facility] 07-29-2023 17:56-0400 Respiratory rate 15 /min DO Milana Jose Work Phone: [facility] 07-29-2023 17:56-0400 SaO2% (BldA) [Mass fraction] 98 % DO Milana Jose Work Phone: [facility] 07-29-2023 17:56-0400 Systolic blood pressure 117 mm[Hg] DO Milana Jose Work Phone: [facility] 07-29-2023 14:11-0400 Body height 162.56 cm DO Milana Jose Work Phone: [facility] 07-29-2023 14:11-0400 Body mass index (BMI) [Ratio] 27.8 kg/m2 DO Milana Jose Work Phone: [facility] 07-29-2023 14:11-0400 Body temperature 96.3 [degF] DO Milana Jose Work Phone: [facility] 07-29-2023 14:11-0400 Body weight 73.48 kg DO Milana Jose Work Phone: [facility] 07-01-2023 09:44-0400 Body height 162.56 cm DO Milana Jose Work Phone: [facility] 07-01-2023 09:44-0400 Body mass index (BMI) [Ratio] 27.8 kg/m2 DO Milana Jose Work Phone: [facility] 07-01-2023 09:44-0400 Body temperature 98.5 [degF] DO Milana Jose Work Phone: [facility] 07-01-2023 09:44-0400 Body weight 73.48 kg DO Milana Jose Work Phone: [facility] 07-01-2023 09:44-0400 Diastolic blood pressure 88 mm[Hg] DO Milana Jose Work Phone: [facility] 07-01-2023 09:44-0400 Heart rate 88 /min DO Milana Jose Work Phone: [facility] 07-01-2023 09:44-0400 Respiratory rate 18 /min DO Milana Jose Work Phone: [facility] 07-01-2023 09:44-0400 SaO2% (BldA) [Mass fraction] 95 % DO Milana Jose Work Phone: [facility] 07-01-2023 09:44-0400 Systolic blood pressure 136 mm[Hg] DO Milana Jose Work Phone: [facility] 05-25-2023 02:54-0400 Diastolic blood pressure 64 mm[Hg] DO Milana Jose Work Phone: [facility] 05-25-2023 02:54-0400 Heart rate 90 /min DO Milana Jose Work Phone: [facility] 05-25-2023 02:54-0400 Respiratory rate 18 /min DO Milana Jose Work Phone: [facility] 05-25-2023 02:54-0400 Systolic blood pressure 132 mm[Hg] DO Milana Jose Work Phone: [facility] 05-25-2023 02:11-0400 SaO2% (BldA) [Mass fraction] 94 % DO Milana Jose Work Phone: [facility] 05-24-2023 21:32-0400 Body height 162.99 cm DO Milana Jose Work Phone: [facility] 05-24-2023 21:32-0400 Body mass index (BMI) [Ratio] 28.9 kg/m2 DO Milana Jose Work Phone: [facility] 05-24-2023 21:32-0400 Body temperature 96.7 [degF] DO Milana Jose Work Phone: [facility] 05-24-2023 21:32-0400 Body weight 76.9 kg DO Milana Jose Work Phone: [facility] 05-20-2023 09:58-0400 Body height 162.56 cm DO Milana Jose Work Phone: [facility] 05-20-2023 09:57-0400 Body mass index (BMI) [Ratio] 27.6 kg/m2 DO Milana Jose Work Phone: [facility] 05-20-2023 09:57-0400 Body weight 73.02 kg DO Milana Jose Work Phone: [facility] 05-20-2023 09:57-0400 Diastolic blood pressure 98 mm[Hg] DO Milana Jose Work Phone: [facility] 05-20-2023 09:57-0400 Heart rate 81 /min DO Milana Jose Work Phone: [facility] 05-20-2023 09:57-0400 Respiratory rate 18 /min DO Milana Jose Work Phone: [facility] 05-20-2023 09:57-0400 SaO2% (BldA) [Mass fraction] 97 % DO Milana Jose Work Phone: [facility] 05-20-2023 09:57-0400 Systolic blood pressure 156 mm[Hg] DO Milana Jose Work Phone: [facility] 05-05-2023 00:54-0400 Diastolic blood pressure 62 mm[Hg] DO Milana Jose Work Phone: [facility] 05-05-2023 00:54-0400 Heart rate 68 /min DO Milana Jose Work Phone: [facility] 05-05-2023 00:54-0400 Respiratory rate 16 /min DO Milana Jose Work Phone: [facility] 05-05-2023 00:54-0400 SaO2% (BldA) [Mass fraction] 96 % DO Milana Jose Work Phone: [facility] 05-05-2023 00:54-0400 Systolic blood pressure 97 mm[Hg] DO Milana Jose Work Phone: [facility] 05-04-2023 21:23-0400 Body mass index (BMI) [Ratio] 27.2 kg/m2 DO Milana Jose Work Phone: [facility] 05-04-2023 21:23-0400 Body weight 72 kg DO Milana Jose Work Phone: [facility] 05-04-2023 19:53-0400 Body height 162.56 cm DO Milana Jose Work Phone: [facility] 05-04-2023 19:53-0400 Body temperature 97.3 [degF] DO Milana Jose Work Phone: [facility] 04-11-2023 09:46-0400 Body temperature 98 [degF] DO Milana Jose Work Phone: [facility] 04-11-2023 09:46-0400 Diastolic blood pressure 63 mm[Hg] DO Milana Jose Work Phone: [facility] 04-11-2023 09:46-0400 Heart rate 85 /min DO Milana Jose Work Phone: [facility] 04-11-2023 09:46-0400 Respiratory rate 14 /min DO Milana Jose Work Phone: [facility] 04-11-2023 09:46-0400 SaO2% (BldA) [Mass fraction] 97 % DO Milana Jose Work Phone: [facility] 04-11-2023 09:46-0400 Systolic blood pressure 118 mm[Hg] DO Milana Jose Work Phone: [facility] 04-10-2023 03:47-0400 Body height 162.56 cm DO Milana Jose Work Phone: [facility] 04-10-2023 03:47-0400 Body mass index (BMI) [Ratio] 27.4 kg/m2 DO Milana Jose Work Phone: [facility] 04-10-2023 03:47-0400 Body weight 72.5 kg DO Milana Jose Work Phone: [facility] 04-10-2023 02:34-0400 Diastolic blood pressure 61 mm[Hg] DO Milana Jose Work Phone: [facility] 04-10-2023 02:34-0400 Heart rate 87 /min DO Milana Jose Work Phone: [facility] 04-10-2023 02:34-0400 Respiratory rate 16 /min DO Milana Jose Work Phone: [facility] 04-10-2023 02:34-0400 SaO2% (BldA) [Mass fraction] 95 % DO Milana Jose Work Phone: [facility] 04-10-2023 02:34-0400 Systolic blood pressure 114 mm[Hg] DO Milana Jose Work Phone: [facility] 04-10-2023 02:15-0400 Body temperature 98 [degF] DO Milana Jose Work Phone: [facility] 04-09-2023 22:23-0400 Body height 162.56 cm DO Milana Jose Work Phone: [facility] 04-09-2023 22:23-0400 Body mass index (BMI) [Ratio] 26.8 kg/m2 DO Milana Jose Work Phone: [facility] 04-09-2023 22:23-0400 Body weight 70.8 kg DO Milana Jose Work Phone: [facility] 03-22-2023 22:52-0400 Diastolic blood pressure 69 mm[Hg] DO Milana Jose Work Phone: [facility] 03-22-2023 22:52-0400 Heart rate 71 /min DO Milana Jose Work Phone: [facility] 03-22-2023 22:52-0400 Respiratory rate 18 /min DO Milana Jose Work Phone: [facility] 03-22-2023 22:52-0400 SaO2% (BldA) [Mass fraction] 98 % DO Milana Jose Work Phone: [facility] 03-22-2023 22:52-0400 Systolic blood pressure 111 mm[Hg] DO Milana Jose Work Phone: [facility] 03-22-2023 17:49-0400 Body height 162.56 cm DO Milana Jose Work Phone: [facility] 03-22-2023 17:49-0400 Body mass index (BMI) [Ratio] 26.5 kg/m2 DO Milana Jose Work Phone: [facility] 03-22-2023 17:49-0400 Body temperature 96.4 [degF] DO Milana Jose Work Phone: [facility] 03-22-2023 17:49-0400 Body weight 70.08 kg DO Milana Jose Work Phone: [facility] 02-12-2023 10:24-0400 Body temperature 98.2 [degF] DO Milana Trenter Work Phone: [facility] 02-12-2023 10:24-0400 Diastolic blood pressure 66 mm[Hg] DO Milana Trenter Work Phone: [facility] 02-12-2023 10:24-0400 Heart rate 83 /min DO Milana Trenter Work Phone: [facility] 02-12-2023 10:24-0400 Respiratory rate 16 /min DO Milana Trenter Work Phone: [facility] 02-12-2023 10:24-0400 SaO2% (BldA) [Mass fraction] 98 % DO Milana Trenter Work Phone: [facility] 02-12-2023 10:24-0400 Systolic blood pressure 104 mm[Hg] DO Milana Garcia Work Phone: [facility] 01-21-2023 15:06-0500 Diastolic blood pressure 82 mm[Hg] Dr. Calvin Waldrop Work Phone: [facility] 01-21-2023 15:06-0500 Heart rate 90 /min Dr. Calvin Waldrop Work Phone: [facility] 01-21-2023 15:06-0500 Respiratory rate 14 /min Dr. Calvin Waldrop Work Phone: [facility] 01-21-2023 15:06-0500 SaO2% (BldA) [Mass fraction] 98 % Dr. Calvin Waldrop Work Phone: [facility] 01-21-2023 15:06-0500 Systolic blood pressure 165 mm[Hg] Dr. Calvin Waldrop Work Phone: [facility] 01-21-2023 11:49-0500 Body height 162.[address] Calvin Waldrop Work Phone: [facility] 01-21-2023 11:49-0500 Body mass index (BMI) [Ratio] 27.5 kg/m2 Dr. Calvin Waldrop Work Phone: [facility] 01-21-2023 11:49-0500 Body temperature 97.2 [degF] Dr. Calvin Waldrop Work Phone: [facility] 01-21-2023 11:49-0500 Body weight 72.[address] Calvin Waldrop Work Phone: [facility] 11-19-2022 10:59-0500 Diastolic blood pressure 69 mm[Hg] Dr. Calvin Waldrop Work Phone: [facility] 11-19-2022 10:59-0500 Heart rate 83 /min Dr. Calvin Waldrop Work Phone: [facility] 11-19-2022 10:59-0500 Systolic blood pressure 120 mm[Hg] Dr. Calvin Waldrop Work Phone: [facility] 11-19-2022 10:47-0500 Body temperature 98.5 [degF] Dr. Calvin Waldrop Work Phone: [facility] 11-19-2022 10:47-0500 Respiratory rate 16 /min Dr. Calvin Waldrop Work Phone: [facility] 11-19-2022 10:47-0500 SaO2% (BldA) [Mass fraction] 97 % Dr. Calvin Waldrop Work Phone: [facility] 11-18-2022 13:57-0500 Body height 162.[address] Calvin Waldrop Work Phone: [facility] Work Phone: 11-18-2022 13:57-0500 Body mass index (BMI) [Ratio] 28.5 kg/m2 Dr. Calvin Waldrop Work Phone: [facility] 11-18-2022 13:57-0500 Body weight 75.[address] Calvin Waldrop Work Phone: [facility] 10-31-2022 11:49-0500 Body temperature 98.2 [degF] Dr. Calvin Waldrop Work Phone: [facility] 10-31-2022 11:49-0500 Diastolic blood pressure 88 mm[Hg] Dr. Calvin Waldrop Work Phone: [facility] 10-31-2022 11:49-0500 Heart rate 98 /min Dr. Calvin Waldrop Work Phone: [facility] 10-31-2022 11:49-0500 Respiratory rate 14 /min Dr. Calvin Waldrop Work Phone: [facility] 10-31-2022 11:49-0500 SaO2% (BldA) [Mass fraction] 97 % Dr. Calvin Waldrop Work Phone: [facility] 10-31-2022 11:49-0500 Systolic blood pressure 136 mm[Hg] Dr. Calvin Waldrop Work Phone: [facility] 10-07-2022 14:59-0500 Body temperature 97.8 [degF] Dr. Calvin Waldrop Work Phone: [facility] [facility] 10-07-2022 14:59-0500 Diastolic blood pressure 80 mm[Hg] Dr. Calvin Waldrop Work Phone: [facility] 10-07-2022 14:59-0500 Heart rate 107 /min Dr. Calvin Waldrop Work Phone: [facility] 10-07-2022 14:59-0500 Respiratory rate 16 /min Dr. Calvin Waldrop Work Phone: [facility] 10-07-2022 14:59-0500 SaO2% (BldA) [Mass fraction] 98 % Dr. Calvin Waldrop Work Phone: [facility] 10-07-2022 14:59-0500 Systolic blood pressure 154 mm[Hg] Dr. Calvin Waldrop Work Phone: [facility] 09-05-2022 23:51-0400 Diastolic blood pressure 68 mm[Hg] Calvin Waldrop [facility] Work Phone: 09-05-2022 23:51-0400 Heart rate 115 /min [facility] Work Phone: 09-05-2022 23:51-0400 Respiratory rate 16 /min [facility] Work Phone: 09-05-2022 23:51-0400 SaO2% (BldA) [Mass fraction] 96 % [facility] Work Phone: 09-05-2022 23:51-0400 Systolic blood pressure 129 mm[Hg] [facility] Work Phone: 09-05-2022 21:11-0400 Body height 162.56 cm [facility] Work Phone: 09-05-2022 21:11-0400 Body mass index (BMI) [Ratio] 27.5 kg/m2 [facility] Work Phone: 09-05-2022 21:11-0400 Body temperature 98 [degF] [facility] Work Phone: 09-05-2022 21:11-0400 Body weight 72.7 kg [facility] Work Phone: 07-21-2022 18:58-0400 Body temperature 99 [degF] Samantha Deleon TELETYPEWRITER INSTALLER.SPRINKLER REPAIR TECHNICIAN Work Phone: [facility] 07-21-2022 18:58-0400 Body weight 72.39 kg Samantha Deleon TELETYPEWRITER INSTALLER.SPRINKLER REPAIR TECHNICIAN Work Phone: [facility] 07-21-2022 18:58-0400 Diastolic blood pressure 84 mm[Hg] Samantha Deleon TELETYPEWRITER INSTALLER.SPRINKLER REPAIR TECHNICIAN Work Phone: [facility] 07-21-2022 18:58-0400 Heart rate 83 /min Samantha Deleon TELETYPEWRITER INSTALLER.SPRINKLER REPAIR TECHNICIAN Work Phone: [facility] 07-21-2022 18:58-0400 Respiratory rate 16 /min Samantha Deleon TELETYPEWRITER INSTALLER.SPRINKLER REPAIR TECHNICIAN Work Phone: [facility] 07-21-2022 18:58-0400 SaO2% (BldA) [Mass fraction] 98 % Samantha Deleon TELETYPEWRITER INSTALLER.SPRINKLER REPAIR TECHNICIAN Work Phone: [facility] 07-21-2022 18:58-0400 Systolic blood pressure 138 mm[Hg] Samantha Deleon TELETYPEWRITER INSTALLER.SPRINKLER REPAIR TECHNICIAN Work Phone: [facility] 05-31-2022 12:28-0400 Body mass index (BMI) [Ratio] 26.3 kg/m2 [facility] Work Phone: 05-31-2022 12:28-0400 Body temperature 97.3 [degF] [facility] Work Phone: 05-31-2022 12:28-0400 Body weight 69.51 kg [facility] Work Phone: 05-31-2022 12:28-0400 Diastolic blood pressure 76 mm[Hg] [facility] Work Phone: 05-31-2022 12:28-0400 Heart rate 69 /min [facility] Work Phone: 05-31-2022 12:28-0400 Respiratory rate 18 /min [facility] Work Phone: 05-31-2022 12:28-0400 SaO2% (BldA) [Mass fraction] 99 % [facility] Work Phone: 05-31-2022 12:28-0400 Systolic blood pressure 116 mm[Hg] [facility] Work Phone: 02-22-2022 15:02-0400 Diastolic blood pressure 84 mm[Hg] [facility] Work Phone: 02-22-2022 15:02-0400 Heart rate 71 /min [facility] Work Phone: 02-22-2022 15:02-0400 Respiratory rate 14 /min [facility] Work Phone: 02-22-2022 15:02-0400 SaO2% (BldA) [Mass fraction] 96 % [facility] Work Phone: 02-22-2022 15:02-0400 Systolic blood pressure 120 mm[Hg] [facility] Work Phone: 02-22-2022 12:30-0400 Body temperature 96.2 [degF] [facility] Work Phone: 02-22-2022 12:12-0400 Body height 162.56 cm [facility] Work Phone: 02-22-2022 12:12-0400 Body mass index (BMI) [Ratio] 26.3 kg/m2 [facility] Work Phone: 02-22-2022 12:12-0400 Body weight 69.5 kg [facility] Work Phone: 06-10-2021 22:58-0400 Diastolic blood pressure 62 mm[Hg] No Pcp Required [facility] 06-10-2021 22:58-0400 Heart rate 88 /min No Pcp Required [facility] 06-10-2021 22:58-0400 Respiratory rate 16 /min No Pcp Required [facility] 06-10-2021 22:58-0400 SaO2% (BldA) [Mass fraction] 99 % No Pcp Required [facility] 06-10-2021 22:58-0400 Systolic blood pressure 105 mm[Hg] No Pcp Required [facility] 06-10-2021 22:27-0400 Body height 162.5 cm No Pcp Required [facility] 06-10-2021 22:27-0400 Body temperature 96.98 [degF] No Pcp Required [facility] 06-10-2021 22:27-0400 Body weight 72.7 kg No Pcp Required [facility] Encounters Encounter Date Encounter Type [...] Non-patient / Non-visit Dr. Mao Becker DO [facility] Work Phone: Start: 05-28-2025 Dr. Mao Becker DO [facility] Work Phone: Start: 05-27-2025 Non-patient / Non-visit [facility] Work Phone: Start: 05-27-2025 Dr. Mao Becker DO [facility] Work Phone: Start: 05-26-2025 Non-patient / Non-visit Dr. Mao Becker [facility] Work Phone: Start: 05-26-2025 Dr. Mao Becker DO [facility] Work Phone: Start: 05-25-2025 Non-patient / Non-visit Dr. Myra Null MD [facility] Work Phone: Start: 05-25-2025 ambulatory Chalon Sudha Facility:[facility] Start: 05-25-2025 End: 05-28-2025 Evaluation and management of inpatient Dr. Myra Null MD -[facility] Work Phone: Start: 05-25-2025 End: 05-28-2025 Dr. Mao Becker [facility] 3 Work Phone: Start: 05-06-2025 Non-patient / Non-visit Dr. Mao Becker [facility] Work Phone: Start: 05-06-2025 Dr. Mao Becker [facility] Work Phone: Start: 05-05-2025 Non-patient / Non-visit Dr. Mao Becker [facility] Work Phone: Start: 05-05-2025 Dr. Mao Becker [facility] Work Phone: Start: 05-04-2025 Non-patient / Non-visit Dr. Canelo Myers MD [facility] Work Phone: Start: 05-04-2025 Dr. Canelo Myers MD [facility] Work Phone: Start: 05-03-2025 Non-patient / Non-visit Dr. Canelo Myers MD [facility] Work Phone: Start: 05-03-2025 Dr. Canelo Myers MD [facility] Work Phone: Start: 05-02-2025 Non-patient / Non-visit Dr. Canelo Myers MD [facility] Work Phone: Start: 05-02-2025 Dr. Canelo Myers MD [facility] Work Phone: Start: 05-01-2025 Non-patient / Non-visit Dr. Canelo Myers MD [facility] Work Phone: Start: 05-01-2025 Dr. Canelo Myers MD [facility] Work Phone: Start: 04-30-2025 Non-patient / Non-visit Dr. Canelo Myers MD [facility] Work Phone: Start: 04-30-2025 Dr. Canelo Myers MD [facility] Work Phone: Start: 04-29-2025 Non-patient / Non-visit Dr. Canelo Myers MD [facility] Work Phone: Start: 04-29-2025 Dr. Canelo Myers [facility] Work Phone: Start: 04-28-2025 Non-patient / Non-visit Dr. Canelo Myers MD [facility] Work Phone: Start: 04-28-2025 Dr. Canelo Myers MD -[facility] Work Phone: Start: 04-27-2025 Non-patient / Non-visit Dr. Canelo Myers MD [facility] Work Phone: Start: 04-27-2025 Dr. Canelo Myers MD -[facility] Work Phone: Start: 04-26-2025 Non-patient / Non-visit Dr. Julius Moncada MD [facility] Work Phone: Start: 04-26-2025 ambulatory [...] Work Phone: Start: 01-03-2025 ambulatory Chaldean Sudha Facility:[facility] Start: 11-12-2024 End: 11-12-2024 Emergency department patient visit Rober Concepcion Facility:[facility] Start: 10-09-2024 End: 10-09-2024 ambulatory Abisai Sudha [place] Start: 09-25-2024 End: 09-25-2024 ambulatory Ivonnoris Sams Facility:[facility] Start: 08-28-2024 End: 08-28-2024 ambulatory Thangdean Sudha [place] Start: 08-22-2024 End: 08-22-2024 ambulatory Chaldean Sudha [facility] Start: 08-22-2024 End: 08-22-2024 ambulatory Chaldean Sudha Facility:[facility] Start: 08-15-2024 End: 08-15-2024 ambulatory Abisai Haley Facility:[facility] Start: 04-22-2024 End: 04-22-2024 ambulatory IHSAN Yarbrough LAUREN Facility:[facility] Start: 04-22-2024 End: 04-22-2024 Patient encounter procedure Aretha 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 Phone: [facility] Comment on above: Sinus congestion (Pr imary Dx); Wheezing; Nausea Start: 03-22-2024 End: 03-22-2024 Patient encounter procedure DO Milana Garcia Work Phone: [facility] Work Phone: Start: 03-21-2024 End: 03-21-2024 ambulatory DO Milana Garcia Work Phone: [facility] Work Phone: Start: 03-21-2024 End: 03-21-2024 Patient encounter procedure DO Milana Garcia Work Phone: [facility] Start: 01-24-2024 End: 01-24-2024 Emergency department patient visit DO Milana Garcia [facility] Work Phone: Start: 10-19-2023 End: 10-19-2023 Patient encounter procedure DO Milana Garcia Work Phone: [facility] Work Phone: Start: 10-15-2023 End: 10-15-2023 ambulatory DO Milana Garcia Work Phone: [facility] Work Phone: Start: 10-15-2023 End: 10-15-2023 Patient encounter procedure DO Milana Garcia Work Phone: [facility] Work Phone: Start: 10-10-2023 End: 10-10-2023 Emergency department patient visit DO Milana Garcia [facility] Work [facility]: Start: 09-27-2023 End: 09-27-2023 Patient encounter procedure DO Milana Garcia Work Phone: [facility] Work Phone: Start: 09-15-2023 End: 09-15-2023 Patient encounter procedure DO Milana Garcia Work Phone: [facility] Work Phone: Start: 08-25-2023 End: 08-25-2023 ambulatory DO Milana Garcia Work Phone: [facility] Work Phone: Start: 08-25-2023 End: 08-25-2023 Patient encounter procedure DO Milana Garcia Work Phone: [facility] Work Phone: Start: 08-25-2023 End: 08-25-2023 Patient encounter procedure DO Milana Trenter Work Phone: [facility] Work Phone: Start: 08-23-2023 End: 08-23-2023 Emergency department patient visit DO Milana Garcia [facility] Work [facility]: Start: 07-29-2023 End: 07-29-2023 Emergency department patient visit DO Milana Garcia [facility] Work [facility]: Start: 07-19-2023 End: 07-19-2023 ambulatory DO Milana Christensennger Work Phone: [facility] Work Phone: Start: 07-19-2023 End: 07-19-2023 Patient encounter procedure DO Milana Trenter Work Phone: [facility] Work Phone: Start: 07-01-2023 End: 07-01-2023 Patient encounter procedure DO Milana Garcia Work Phone: [facility] Work Phone: Start: 05-25-2023 Registered Referred DO Milana Trenter [facility] Work [facility]: Start: 05-24-2023 End: 05-25-2023 Emergency department patient visit DO Milana Trenter Work Phone: [facility] Start: 05-20-2023 End: 05-20-2023 Patient encounter procedure DO Milana Trenter Work Phone: [facility] Start: 05-19-2023 End: 05-19-2023 ambulatory DO Milana Garcia Work Phone: [facility] Work Phone: Start: 05-19-2023 End: 05-19-2023 Patient encounter procedure DO Milana Christensennger Work Phone: [facility] Start: 05-04-2023 End: 05-05-2023 Emergency department patient visit DO Milana Christensennger Work Phone: [facility] Start: 04-11-2023 Non-patient / Non-visit DO Milana Garcia Work Phone: [facility] Start: 04-10-2023 End: 04-10-2023 Non-patient / Non-visit DO Milana Garcia Work Phone: [facility] Start: 04-10-2023 End: 04-11-2023 Evaluation and management of inpatient DO Milanagillian Christensennger [facility] Start: 04-09-2023 End: 04-09-2023 Patient encounter procedure DO Milanagillian Christensennger Work Phone: [facility] Start: 03-22-2023 End: 03-22-2023 Emergency department patient visit DO Milana Jose Work Phone: [facility] Start: 02-12-2023 End: 02-12-2023 Patient encounter procedure DO Milana Jose Work Phone: [facility] Start: 01-21-2023 End: 01-21-2023 Emergency department patient visit Dr. Calvin Waldrop Work Phone: [facility] Start: 11-19-2022 Non-patient / Non-visit Dr. Calvin Waldrop Work Phone: [facility] Start: 11-19-2022 Non-patient / Non-visit Dr. Calvin Waldrop Work Phone: [facility] Start: 11-18-2022 Non-patient / Non-visit Dr. Calvin Waldrop Work Phone: [facility] Start: 11-18-2022 Non-patient / Non-visit Dr. Calvin Waldrop Work Phone: [facility] Start: 11-18-2022 End: 11-19-2022 Evaluation and management of inpatient Dr. Calvin Waldrop [facility] Start: 10-31-2022 End: 10-31-[address] Calvin Waldrop Work Phone: [facility] Start: 10-07-2022 End: 10-07-[address] Calvin Waldrop Work Phone: [facility] Start: 09-05-2022 End: 09-06-2022 [facility] Start: 07-21-2022 End: 07-21-2022 Subsequent hospital visit by physician [facility] Work Phone: Radiology Comment on above: Hip pain, acute, lef t [M25.552] Start: 07-21-2022 End: 07-21-2022 Patient encounter procedure Samantha Deleon APRN.CNP Work Phone: [facility] Comment on above: Hip pain, acute, lef t (Primary Dx) Start: 05-31-2022 End: 05-31-2022 Patient encounter procedure Calvin Waldrop [facility] Start: 02-22-2022 End: 02-22-2022 [facility] Start: 06-10-2021 End: 06-10-2021 Emergency department patient visit Noe Engel [facility] Emergency 07 Procedures Date Procedure [...] Bacteria identified in Blood by Culture DO Mialna Garcia Work Phone: Start: 04-10-2023 MRI of [...] unilateral with pelvis 2-3 views Samantha Deleon TELETYPEWRITER INSTALLER.SPRINKLER REPAIR TECHNICIAN Work Phone: Start: 02-22-2022 Plain chest X-ray Start: 06-21-2020 Mammography Samantha Ri ggs TELETYPEWRITER INSTALLER.SPRINKLER REPAIR TECHNICIAN Work Phone: Start: 09-11-2015 Colonoscopy Samantha Ri ggs TELETYPEWRITER INSTALLER.SPRINKLER REPAIR TECHNICIAN Work Phone: Bacteria identified in Blood by Culture DO iMlana Garcia Work Phone: Plan of Treatment Date Care Activity Detail Author Start: 03-03-2034 Urine microalbumin profile DTaP,Tdap,Td Vaccine (3 - Td or Tdap) [facility] Start: 07-20-2025 Patient discharge [facility] Start: 07-18-2025 [facility] Start: 07-17-2025 End: 07-18-2025 [facility] Start: 07-17-2025 Following clinical pathway protocol [facility] Start: 07-17-2025 Ambulation without limitation [facility] Start: 07-17-2025 Assessment of risk of venous thromboembolism [facility] Start: 07-17-2025 Care regimes management [facility] Start: 07-17-2025 Insertion of catheter into peripheral vein [facility] Start: 07-17-2025 Measuring intake and output [facility] Start: 07-17-2025 Notification of physician [facility] Start: 07-17-2025 Oxygen therapy [facility] Start: 07-17-2025 Providing care according to standard [facility] Start: 07-17-2025 Vital signs measurements [facility] Start: 07-17-2025 Prothrombin time [facility] Start: 07-17-2025 Verification routine [facility] Start: 07-17-2025 Hospital admission, emergency, from emergency room, medical nature [facility] Start: 07-17-2025 Admission procedure [facility] Start: 07-17-2025 Patient referral to dietitian [facility] Start: 07-17-2025 [facility] Start: 05-28-2025 Patient discharge [facility] Start: 05-26-2025 [facility] Start: 05-25-2025 Assessment of risk of venous thromboembolism [facility] Start: 05-25-2025 Care regimes management [facility] Start: 05-25-2025 Inhalation therapy procedure [facility] Start: 05-25-2025 Introduction of urinary catheter [facility] Start: 05-25-2025 Notification of physician [facility] Start: 05-25-2025 Oxygen therapy [facility] Start: 05-25-2025 Provision of activity privileges [facility] Start: 05-25-2025 Referral to service [facility] Start: 05-25-2025 Vital signs measurements [facility] Start: 05-25-2025 End: 05-25-2025 [facility] Start: 05-25-2025 Following clinical pathway protocol [facility] Start: 05-25-2025 Hospital admission, emergency, from emergency room, medical nature [facility] Start: 05-25-2025 Verification routine [facility] Start: 05-25-2025 Admission procedure [facility] Start: 05-06-2025 Patient discharge [facility] Start: 05-05-2025 Inhalation therapy procedure [facility] Start: 05-01-2025 Referral to occupational therapist [facility] Start: 05-01-2025 Referral to service [facility] Start: 04-29-2025 Oxygen therapy [facility] Start: 04-28-2025 Assessment of risk of venous thromboembolism [facility] Start: 04-28-2025 Notification of physician [facility] Start: 04-28-2025 Vital signs measurements [facility] Start: 04-27-2025 [facility] Start: 04-27-2025 Hepatic function panel [facility] Start: 04-27-2025 Prothrombin time [facility] Start: 04-27-2025 Serum inorganic phosphate measurement [facility] Start: 04-27-2025 Thyroid stimulating hormone measurement [facility] Start: 04-26-2025 Following clinical pathway protocol [facility] Start: 04-26-2025 End: 04-26-2025 [facility] Start: 04-26-2025 Care regimes management [facility] Start: 04-26-2025 Notification of physician [facility] Start: 04-26-2025 Admission procedure [facility] Start: 04-26-2025 Ambulation without limitation [facility] Start: 04-26-2025 Assessment of risk of venous thromboembolism [facility] Start: 04-26-2025 Insertion of catheter into peripheral vein [facility] Start: 04-26-2025 Providing care according to standard [facility] Start: 04-26-2025 Verification routine [facility] Start: 04-26-2025 Hospital admission, emergency, from emergency room, medical nature [facility] Start: 04-26-2025 Patient referral to dietitian [facility] Start: 04-12-2025 [facility] Start: 04-11-2025 [facility] Start: 04-05-2025 [facility] Start: 04-04-2025 [facility] Start: 04-04-2025 End: 04-04-2025 [facility] Start: 07-30-2024 Covid-19 Vaccine () Covid-19 Vaccine () [facility] Start: 07-30-2024 Influenza vaccination [facility] Start: 06-07-2024 Hepatitis B Vaccine (3 of 3 - Hep B Twinrix 3-dose series) Hepatitis B Vaccine (3 of 3 - Hep B Twinrix 3-dose series) [facility] Start: 03-22-2024 Patient referral [facility] Work Phone: Start: 01-24-2024 [facility] Start: 01-24-2024 End: 01-24-2024 [facility] Start: 10-26-2023 HPV TESTING HPV TESTING [facility] Start: 10-26-2023 PAP TESTING PAP TESTING [facility] Start: 10-26-2023 Screening for malignant neoplasm of cervix [facility] Start: 10-15-2023 Elastase, pancreatic (el-1), fecal; quantitative [facility] Start: 10-10-2023 [facility] Start: 10-10-2023 [facility] Start: 09-26-2023 Urine microalbumin profile DTAP,TDAP,TD (2 - Td or Tdap) [facility] Start: 07-29-2023 [facility] Start: 05-24-2023 [facility] Start: 05-04-2023 [facility] Start: 04-11-2023 Patient discharge [facility] Start: 04-10-2023 Following clinical pathway protocol [facility] Start: 04-10-2023 Ambulation without limitation [facility] Start: 04-10-2023 Assessment of risk of venous thromboembolism [facility] Start: 04-10-2023 Care regimes management [facility] Start: 04-10-2023 Inhalation therapy procedure [facility] Start: 04-10-2023 Insertion of catheter into peripheral vein [facility] Start: 04-10-2023 Measuring intake and output [facility] Start: 04-10-2023 Notification of physician [facility] Start: 04-10-2023 Providing care according to standard [facility] Start: 04-10-2023 Tobacco use cessation education [facility] Start: 04-10-2023 [facility] Start: 04-10-2023 Electrocardiographic procedure [facility] Start: 04-10-2023 Verification routine [facility] Start: 04-10-2023 Admission procedure [facility] Start: 04-10-2023 End: 04-10-2023 Blood culture [facility] Start: 01-21-2023 [facility] Start: 11-19-2022 Patient referral [facility] Work Phone: Start: 11-19-2022 Patient discharge [facility] Start: 11-19-2022 Notification of physician [facility] Start: 11-19-2022 Patient education [facility] Start: 11-19-2022 Pulse taking [facility] Start: 11-19-2022 Taking patient vital signs [facility] Start: 11-19-2022 Wound care [facility] Start: 11-19-2022 [facility] Start: 11-19-2022 Catheterization of left heart [facility] Work Phone: Start: 11-18-2022 Assessment of risk of venous thromboembolism [facility] Start: 11-18-2022 Care regimes management [facility] Start: 11-18-2022 Insertion of catheter into peripheral vein [facility] Start: 11-18-2022 Measuring intake and output [facility] Start: 11-18-2022 Providing care according to standard [facility] Start: 11-18-2022 Referral to elementary education teacher [facility] Start: 11-18-2022 [facility] Start: 11-18-2022 Following clinical pathway protocol [facility] Start: 11-18-2022 Catheterization of vein [facility] Start: 11-18-2022 Medication not administered [facility] Start: 11-18-2022 Notification of physician [facility] Start: 11-18-2022 Preoperative care [facility] Start: 11-18-2022 [facility] Start: 11-18-2022 Admission procedure [facility] Start: 10-07-2022 Patient referral [facility] Work Phone: Start: 07-30-2022 Influenza vaccination INFLUENZA (#1) [facility] Start: 2022 COLOGUARD (FIT-DNA) COLOGUARD (FIT-DNA) [facility] Start: 2022 Colonoscopy COLONOSCOPY [facility] Start: 2022 COLORECTAL CANCER SCREENING COLORECTAL CANCER SCREENING [facility] Start: [address] COLONOGRAPHY [facility] Start: 2022 FECAL OCCULT BLOOD FECAL OCCULT BLOOD [facility] Start: 2022 Screening for malignant neoplasm of colon [facility] Start: 2022 SIGMOIDOSCOPY SIGMOIDOSCOPY [facility] Start: 07-15-2021 ANNUAL PCP TEAM CHRONIC DISEASE VISIT ANNUAL PCP TEAM CHRONIC DISEASE VISIT [facility] Start: 07-03-2021 Screening for malignant neoplasm of breast Mammogram Screening [facility] Start: 06-21-2021 Hepatitis B screening URINE ALBUMIN:CREATININE RATIO [facility] Start: 06-21-2021 Hepatitis B surface antibody level LDL CHOLESTEROL [facility] Start: 06-21-2021 Mammography MAMMOGRAM [facility] Start: 05-19-2021 COVID-19 VACCINE (3 - Booster for Pfizer series) COVID-19 VACCINE (3 - Booster for Pfizer series) [facility] Start: 11-19-2020 Hemoglobin A1c measurement HbA1C [facility] Start: 11-19-2020 Hemoglobin A1c/Hemoglobin.total in Blood HBA1C [facility] Start: 07-19-2020 3 comp foot exam completed DIABETIC FOOT EXAM [facility] Start: 07-19-2020 Diabetic foot examination Diabetic Foot Exam [facility] ic Start: 12-26-2019 Glaucoma screening Dilated Retinal Exam [facility] Start: 12-26-2019 Hepatitis C antibody, confirmatory test DILATED RETINAL EXAM [facility] Start: 10-20-2014 PNEUMOCOCCAL (2 - PCV) PNEUMOCOCCAL (2 - PCV) [facility] ic Start: 1995 Anxiety Screening Anxiety Screening [facility] Start: 1995 BP CONTROLLED (<130/80) BP CONTROLLED (<130/80) [facility] inic Start: 1995 HEPATITIS C SCREENING HEPATITIS C SCREENING [facility] Start: 1995 Hepatitis C screening Hepatitis C Screening [facility] Start: 1995 HIV SCREENING HIV SCREENING [facility] Start: 1995 HIV screening HIV Screening [facility] Start: 1977 HEPATITIS B (1 of 3 - 3-dose series) HEPATITIS B (1 of 3 - 3-dose series) [facility] Alanine aminotransfe rase [Enzymatic activity/volume] in Serum or Plasma [facility] Albumin [Mass/volume ] in Serum or Plasma [facility] Alkaline phosphatase [Enzymatic activity/volume] in Serum or Plasma [facility] Anion gap in Serum or Plasma [facility] Bacteria identified in Blood by Culture Blood Culture [facility] Bilirubin, total measurement [facility] Bilirubin.direct [Ma ss/volume] in Serum or Plasma [facility] BUN/Creatinine ratio [facility] Calcium [Mass/volume ] in Serum or Plasma [facility] Carbon dioxide, tota l [Moles/volume] in Central venous blood [facility] Cardiac event recording [facility] Creatinine [Mass/vol ume] in Serum or Plasma [facility] Erythrocyte mean cor puscular volume determination [facility] Fat [Mass/mass] in Stool [facility] Fat.neutral [Presenc e] in Stool [facility] Glucose [Mass/volume ] in Serum or Plasma [facility] Hematocrit [Volume F raction] of Blood [facility] Hemoglobin [Mass/vol ume] in Blood [facility] Hemoglobin A1c/Hemoglobin.total in Blood [facility] INR in Blood by Coag ulation assay [facility] INR in Blood by Coag ulation assay [facility] Leukocytes [#/volume] in Blood [facility] Magnesium measurement [facility] Mean corpuscular hem oglobin concentration determination [facility] Mean corpuscular hem oglobin determination [facility] Measurement of renal function [facility] Neutrophil count [facility] Neutrophil percent differential count [facility] Patient Education [facility] Work Phone: Patient referral [facility] Work Phone: Platelets [#/volume] in Blood [facility] Potassium measurement [facility] Red blood cell count [facility] Red cell distributio n width determination [facility] Serum chloride measurement [facility] Sodium measurement [facility] Total protein measurement [facility] Troponin T.cardiac [Mass/volume] in Serum or Plasma by High sensitivity method [facility] Urea nitrogen [Mass/ volume] in Serum or Plasma [facility] Immunizations Immunization Date Immunization Notes Care Provider Juany griffith 10-16-2022 influenza virus vacc ine, unspecified formulation Aretha Schofield TELETYPEWRITER INSTALLER.[facility] Work Phone: [facility] 09-16-2018 influenza, injectabl e, quadrivalent, contains preservative Samantha Deleon TELETYPEWRITER INSTALLER.[facility] Work Phone: [facility] Work Phone: 11-19-2015 influenza, injectabl e, quadrivalent, contains preservative Samantha Deleon TELETYPEWRITER INSTALLER.[facility] Work Phone: [facility] 10-02-2014 influenza, seasonal, injectable Samantha Deleon TELETYPEWRITER INSTALLER.[employer] REPA[employer] TECHNICIAN Work Phone: [facility] Work Phone: 09-27-2014 influenza, injectabl e, quadrivalent, preservative free DO Milana Garcia Work Phone: [facility] 09-27-2014 influenza, seasonal, injectable [facility] 10-20-2013 pneumococcal polysaccharide vaccine, 23 valent Samantha Deleon TELETYPEWRITER INSTALLER.[facility] Work Phone: [facility] Work Phone: 09-27-2013 Pneumococcal Vaccine [facility] Work Phone: 09-27-2013 pneumococcal vaccine , unspecified formulation Dr. Calvin Waldrop Work Phone: [facility] 09-26-2013 tetanus toxoid, redu lenin diphtheria toxoid, and acellular pertussis vaccine, adsorbed Samantha Deleon TELETYPEWRITER INSTALLER.[employer]PRINKL[employer] REPAIR TECHNICIAN Work Phone: [facility] 09-15-2013 influenza virus vacc ine, unspecified formulation Samantha Deleon TELETYPEWRITER INSTALLER.[facility] Work Phone: [facility] Work Phone: 09-15-2013 influenza, injectabl e, quadrivalent, preservative free DO Milana Garcia Work Phone: [facility] 09-15-2013 influenza, seasonal, injectable [facility] Payers Date Payer Category Payer Self-pay [id number] 2024 Self-pay 2022 Unknown 2020 Unknown [id number] 2017 Unknown [id number] Private Health Insurance [facility] [id number] Unknown [id number] Unknown [id number] Unknown [id number] 2.16.840.1.097791.3.579.2.4 62 Unknown [id number] 2.16.840.1.783627.3.579.2.4 62 Unknown [id number] 2.16.840.1.587545.3.579.2.4 62 Unknown [id number] 2.16.840.1.910682.3.579.2.4 62 Unknown [id number] 2.16.840.1.520481.3.579.2.4 62 Unknown [id number] 2.16.840.1.686744.3.579.2.4 62 Unknown [id number] 2.16.840.1.613656.3.579.2.4 62 Unknown [id number] 2.16.840.1.446692.3.579.2.4 62 Unknown [id number] 2.16.840.1.422502.3.579.2.4 62 Unknown [id number] 2.16.840.1.027530.3.579.2.4 62 Unknown [id number] 2.16.840.1.724712.3.579.2.4 62 Unknown [id number] 2.16.840.1.568622.3.579.2.4 62 Unknown [id number] 2.16.840.1.036399.3.579.2.4 62 Unknown [id number] 2.16.840.1.883332.3.579.2.4 62 Unknown [id number] 2.16.840.1.296908.3.579.2.4 62 Unknown [id number] 2.16.840.1.734209.3.579.2.4 62 Unknown [id number] 2.16.840.1.534868.3.579.2.4 62 Unknown [id number] 2.16.840.1.153472.3.579.2.4 62 Unknown [id number] 2.16.840.1.953947.3.579.2.4 62 Unknown [id number] 2.16.840.1.935276.3.579.2.4 62 Unknown [id number] 2.16.840.1.797748.3.579.2.4 62 Unknown [id number] 2.16.840.1.102834.3.579.2.4 62 Unknown [id number] 2.16.840.1.286529.3.579.2.4 62 Unknown [id number] 2.16.840.1.058069.3.579.2.4 62 Unknown [id number] 2.16.840.1.943640.3.579.2.4 62 Unknown [id number] 2.16.840.1.795690.3.579.2.4 62 Unknown [id number] 2.16.840.1.361146.3.579.2.4 62 Unknown [id number] 2.16.840.1.880387.3.579.2.4 62 Unknown [id number] 2.16.840.1.403269.3.579.2.4 62 Unknown [id number] 2.16.840.1.346814.3.579.2.4 62 Unknown [id number] 2.16.840.1.670057.3.579.2.4 62 Unknown [id number] 2.16.840.1.894570.3.579.2.4 62 Unknown [id number] 2.16.840.1.332120.3.579.2.4 62 Social History Date Type Detail Facility [facility] Start: 02-22-2022 End: 01-24-2024 Tobacco smoking consumption unknown [facility] Start: 04-14-2021 Sober [facility] Start: 04-14-2021 None [facility] Start: 04-14-2021 Cigarettes [facility] Start: 1975 Sex Assigned At Female C [facility] Start: 07-21-2022 [facility] Start: 11-29-1996 End: 07-11-2020 History of tobacco use Current smoker [facility] Start: 11-29-1996 End: 07-11-2020 History of tobacco use Cigarette Smoker [facility] Start: 11-04-2020 End: 07-21-2022 Cigarettes smoked current (pack per day) - Reported 0.5 [facility] Start: 07-21-2022 Tobacco use and exposure Smokeless tobacco non-user [facility] Start: 07-21-2022 End: 04-22-2024 Alcohol intake Current drinker of alcohol (finding) [facility] Start: 06-05-2020 End: 08-01-2020 History SDOH Alcohol Frequency 3 [facility] Start: 06-05-2020 End: 08-01-2020 History SDOH Alcohol Std Drinks 1 [facility] Start: 06-05-2020 End: 08-01-2020 History SDOH Alcohol Binge 2 [facility] Start: 09-16-2018 History SDOH 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 [facility] Start: 01-15-2020 History SDOH Social Connections Living 8 [facility] Start: 06-05-2020 History SDOH Physica l Activity DPW 0 [facility] Start: 07-01-2020 History SDOH Financial 5 [facility] Start: 01-14-2020 Education 12 [facility] Start: 07-21-2022 Tobacco Comment stopped 3 weeks ago [facility] Start: 09-26-2014 With Family [facility] Start: 06-05-2020 End: 11-04-2020 Social connection and isolation panel [facility] Frequency of Communication with Friends and Family Not on file [facility] Do you belong to any clubs or organizations such as bahai groups, unions, fraternal or athletic groups, or school groups? No [facility] How often to you hav e a drink containing alcohol? 2-4 times a month [facility] How many standard drinks containing alcohol do you have on a typical day? 1 or 2 [facility] How often do you hav e 6 or more drinks on 1 occasion? Less than monthly [facility] Do you feel stress - tense, restless, nervous, or anxious, or unable to sleep at night because your mind is troubled all the time - these days [OSQ] To some extent [facility] (I/We) worried mary er (my/our) food would run out before (I/we) got money to buy more. Never true [facility] Start: 07-15-2020 Gender identity Identifies as female gender (finding) [facility] Start: 07-15-2020 Sexual orientation Heterosexual (chucky acevedo) [facility] Start: 04-04-2025 Tobacco smoking stat us WYIS Current some day smoker [facility] Start: 04-11-2025 End: 07-18-2025 Tobacco smoking status NHIS Current Light tobacco smoker [facility] NEGATED: Highlighted row [facility] NEGATED: Highlighted row Not [facility] Goals Date Patient Goal Desired Activity /State Functional Status Date Assessment Result Facility 07-20-2025 Functional status Up ad seble [facility] Work Phone: 05-28-2025 Functional status Ambulates;Up ad seble [facility] Work Phone: 05-27-2025 Functional status None [facility] Work Phone: 05-06-2025 Functional status Bathroom Privilege [facility] Work Phone: 04-11-2023 Functional status Activity Ability Indepe ndent [facility] Work Phone: 04-11-2023 Functional status Ambulates;Bathroom Priv ilege [facility] Work Phone: 11-19-2022 Functional status Ambulates [facility] Work Phone: 11-18-2022 Functional status Assistive Devices None [facility] Work Phone: Mental Status Date Assessment Result Facility 07-19-2025 Cognitive function Voice/Name [facility] Work Phone: 05-28-2025 Cognitive function Voice/Name [facility] Work Phone: 05-06-2025 Cognitive function Voice/Name [facility] Work Phone: 04-11-2025 Cognitive function Voice/Name [facility] Work Phone: 01-24-2024 Cognitive function Voice/Name [facility] Work Phone: 10-10-2023 Cognitive function Level Of Cons ciousness Awake;Alert;Appropriate [facility] Work Phone: 07-29-2023 Cognitive function Level Of Cons ciousness Awake;Alert;Appropriate;Follow s Commands [facility] Work Phone: 05-24-2023 Cognitive function Voice/Name [facility] Work Phone: 05-04-2023 Cognitive function Level Of Cons ciousness Awake;Alert;Appropriate [facility] Work Phone: 04-11-2023 Cognitive function Voice/Name [facility] Work Phone: 04-09-2023 Cognitive function Level Of Cons ciousness Awake;Alert;Appropriate;Follow s Commands [facility] Work Phone: 03-22-2023 Cognitive function Level Of Cons ciousness Awake;Alert;Appropriate;Follow s Commands [facility] Work Phone: 01-21-2023 Cognitive function Voice/Name [facility] Work Phone: 11-19-2022 Cognitive function Voice/Name [facility] Work Phone: 09-05-2022 Cognitive function Level Of Cons ciousness Awake;Alert;Appropriate [facility] Work Phone: 02-22-2022 Cognitive function Level Of Cons ciousness Awake;Alert;Appropriate;Follow s Commands;Responds to vocal stimuli [facility] Work Phone: Clinical Notes 07-17-2019 to 07-20-2025 Note Date & Type Note Facility 07-20-2025 Note [facility] 07-20-2025 Hospital Discharg e instructions Additional Instructions Date of Discharge: 07/20/25 [facility] Work Phone: 07-20-2025 Progress note Note Date/Time July 20, 2025 9:04am [facility] Medical Records Department [address] [place] [address] Progress Note - Hospitalist 07/20/25 0731 MR#: [id number] Acct: [id number] Name: JOSEPH RINCON Rep #:[id number] : 1975 50 From: Canelo Myers MD PCP: Dr. Abisai Haley MD Status:ADM IN Location: [place] 137119-1 Reason for Visit Chief Complaint: Abdominal pain [...] % (Auto) 66.7, Lymph % (Auto) 19.5, [place] % (Auto) 11.8 H, Eos % (Auto) [...] 40 minutes Charges/Coding Visit Charges Inpatient E&M: 26066 Subs Hosp L2 07/20/25 0904 <Electronically signed by Canelo Myers MD> Cosigner Signature (if applicable): CC: ~ Signed [facility] Work Phone: 1(980) 258-838808-21-2025 Progress note Author Canelo Myers [facility] Note Date/Time July 19, 2025 9: 41am [facility] Medical Records Department [address] [place] [address] Progress Note - Hospitalist 07/19/2538 MR#: [id number] Acct: [id number] Name: JOSEPH RINCON Rep #:[id number] : 1975 50 From: Canelo Myers MD PCP: Dr. Abisai Haley MD Status:ADM IN Location: [place]3 GF081-0 Reason for Visit Chief Complaint: Abdominal pain [...] % (Auto) 61.0, Lymph % (Auto) 25.9, [place] % (Auto) 10.3 H, Eos % (Auto) [...] 40 minutes Charges/Coding Visit Charges Inpatient E&M: 80761 Subs Hosp L2 07/19/25 0941 <Electronically signed by Canelo Myers MD> Cosigner Signature (if applicable): CC: ~ Signed [facility] Work Phone: 1(111) 208-329908-20-2025 Progress note Author Canelo Myers [facility] Note Date/Time July 18, 2025 9: 43am [facility] Medical Records Department [address] [facility] [place] [address] Progress Note - Hospitalist 07/18/25 0745 MR#: [id number] Acct: [id number] Name: JOSEPH RINCON Rep #:[id number] : 1975 50 From: Canelo Myers MD PCP: Dr. Abisai Haley MD Status:ADM IN Location: [place]3 [id number] Reason for Visit Chief Complaint: Abdominal pain [...] 80.3 H, Lymph % (Auto) 11.2 L, [place] % (Auto) 7.2, Eos % (Auto) 0.3, [...] Clarity Clear, Urine pH 6.5, Ur Specific [place] 1.010, Urine Protein 30 H, Urine Glucose [...] 73.2 H, Lymph % (Auto) 14.1 L, [place] % (Auto) 9.2, Eos % (Auto) 2.4, [...] retroperitoneum related to the pancreatitis. Reading Location: [facility] Physical Exam Narrative GENERAL: cooperative but tremulous [...] 50 minutes Charges/Coding Visit Charges Inpatient E&M: 79262 Subs Hosp L3 07/18/25 0943 <Electronically signed by Canelo Myers MD> Cosigner Signature (if applicable): CC: ~ Signed [facility] Work Phone: 1(454) 155-182708-19-2025 Discharge summary Author Francisco Colon [facility] Note Date/Time July 17, 2025 3: 13pm [facility] Medical Records Department [address] [place] [address] [place] [address] Emergency Department Summary 07/17/25 MR#: [id number] Acct: [id number] Name: JOSEPH RINCON Rep #:[id number] : 1975 50 From: Francisco Colon MD PCP: Dr. Abisai Haley MD Status:ADM IN Location: MS3 [id number] HPI HPI - GI History of Present [...] 80.3 H Lymph % (Auto) 11.2 L [place] % (Auto) 7.2 Eos % (Auto) 0.3 [...] Clarity Clear Urine pH 6.5 Ur Specific [place] 1.010 Urine Protein 30 H Urine Glucose [...] retroperitoneum related to the pancreatitis. Reading Location: [facility] Discharge Plan Triage Chief Complaint: Abd Pain [...] MD [Primary Care Provider] - Print Language: Libyan Disposition Disposition: Acute Care Hospital [facility] What to do if you have Problems For any increased pain, shortness of breath, bleeding, nausea or vomiting, chestpain, or any unexpected problems, contact your Primary Care Provider. Call [facility] ([phone]) or report to the closest Emergency Room. Call 911 if necessary. 07/17/25 1513 <Electronically signed by Francisco Colon MD> Cosigner Signature (if applicable): CC: Dr. Abisai Haley MD ~ Signed [facility] Work Phone: 1(563) 890-930308-19-2025 History and physical note Author Canelo Myers [facility] Note Date/Time July 17, 2025 1: 22pm [facility] Medical Records Department [address] [place] [address] H&P Exam - Hospitalist 07/17/25 1304 MR#: [id number] Acct: [id number] Name: JOSEPH RINCON Rep #:[id number] : 1975 50 From: Canelo Myers MD PCP: Dr. Abisai Haley MD Status:ADM IN Location: [facility] [id number] HPI - General General Date of Admission: [...] to regular nursing floor for further manage [facility] Medical History Admitted to alcohol detoxification [...] 80.3 H, Lymph % (Auto) 11.2 L, [place] % (Auto) 7.2, Eos % (Auto) 0.3, [...] Clarity Clear, Urine pH 6.5, Ur Specific [place] 1.010, Urine Protein 30 H, Urine Glucose [...] retroperitoneum related to the pancreatitis. Reading Location: [id number] Assessment & Plan Assessment/Plan (1) Acute alcoholic [...] Multi Select Codes Visit Charges Visit Charges: 43694 Init Hosp L3 07/17/25 1322 <Electronically signed by Caneol Myers MD> Cosigner Signature (if applicable): CC: Dr. Abisai Haley MD; Dr. Canelo Myers MD~ Signed [facility] Work Phone: 1(508) 143-529508-19-2025 Radiology Diagnostic study [facility]06-30-2025 Consult note [facility] Medical Records Department [address] [place] [address] Counseling Note - Pharmacy 05/28/25 1332 MR#: [id number] Acct: [id number] Name: JOSEPH RINCON Rep #:[id number] : 1975 50 From: Sho Leyva PCP: Dr. Abisai Haley MD Status:ADM IN Location: [place] [address] Pharmacy [place] Med Reconciliation Pharmacy Service has performed discharge [...] Signature (if applicable): Date CC: ~ Signed [facility]06-30-2025 Hospital Discharge instructionsAdditional Instructions Follow up with outpatient detox (180) as directed Date of Discharge: 05/28/25[facility] Work Phone: [phone] 396-871806-30-2025 Discharge summary [facility] Medical Records Department [address] [place] [address] Discharge Summary 05/28/25 1313 MR#: [id number] Acct: [id number] Name: JOSEPH RINCON Rep #:[id number] : 1975 50 From: Mao Becker DO PCP: Dr. Abisai Haley MD Status:ADM IN Location: [facility] [id number] Providers Date of Admission: 05/25/25 Date of Discharge: 05/28/25 Primary Care Physician: Abisai Haley MD Reason For Visit: ETOH DETOXIFICATION, WITHDRAWL Diagnosis Discharge Diagnosis (1) Admitted to alcohol detoxification center: Status: Acute Plan 1. Acute alcohol withdrawal-patient will remain on her present medications, addiction social worker masters will talk with the patient #2 hypomagnesemia-magnesium [...] was seen in the emergency room at [facility] for alcohol detox. She had been admitted previously only several weeks ago for pancreatitis and alcohol withdrawal and had already gone through the program at that time. Her toxicology screen was positive for barbiturates and benzodiazepines, but alcohol level was 312. [facility], orders were entered using the alcohol detox order set and she was seen by addiction social worker masters. Patient had minimal withdrawal symptoms to hospitalization [...] Self Care Charges/Coding Visit Charges Inpatient E&M: 46350 Disch Hosp >30min 05/28/25 1316 Cosigner Signature (if applicable): CC: Dr. Abisai Haley MD; Dr. Mao Becker DO~ Signed [facility]06-30-2025 [facility]06-30-2025 Discharge summary [facility] Medical Records Department [address] [place] [address] Instructions for Home/Discharge Instructions 05/28/25 1020 MR#: [id number] Acct: [id number] Name: JOSEPH RINCON Rep #:[id number] : 1975 50 From: Mao Becker DO [...] MD; Dr. Abisai Haley MD ~ Signed [facility]06-30-2025 Discharge summary Author [facility] Note Date/Time May 28, 2025 12:4 9pm [facility] Medical Records Department [address] [place] [address] Instructions for Home/Discharge Instructions 05/28/25 1020 MR#: [id number] Acct: [id number] Name: JOSEPH RINCON Rep #:[id number] : 1975 50 From: Mao Becker DO [...] can be placed): Home, Self Care 05/28/25 2485<Electronically signed by Mao Becker DO>Mao Becker DO CC: Dr. Myra Null MD; Dr. Abisai Haley MD ~ Signed [facility] Work Phone: 1(870) [phone] Progress note Author [facility] Note Date/Time May 27, 2025 3:33 pm [facility] Medical Records Department [address] [place] [address] Progress Note - Hospitalist 05/27/25 1531 MR#: [id number] Acct: [id number] Name: JOSEPH RINCON Rep #:[id number] : 1975 50 From: Mao Becker DO PCP: Dr. Abisai Haley MD Status:ADM IN Location: [facility] [id number] Subjective Subjective Patient was seen and examined [...] will remain on her present medications, addiction social worker masters will talk with the patient #2 hypomagnesemia-magnesium [...] team: 35-minute Charges/Coding Visit Charges Inpatient E&M: 33890 Subs Hosp L2 05/27/25 1533 <Electronically signed by Mao Becker DO> Cosigner Signature (if applicable): CC: ~ Signed [facility] Work Phone: [phone] 180-982506-29-2025 Progress note [facility] Medical Records Department [address] [place] [address] Progress Note - Hospitalist 05/27/25 1531 MR#: [id number] Acct: [id number] Name: JOSEPH RINCON Rep #:[id number] : 1975 50 From: Mao Becker DO PCP: Dr. Abisai Haley MD Status:ADM IN Location: [facility] [id number] Subjective Subjective Patient was seen and examined [...] will remain on her present medications, addiction social worker masters will talk with the patient #2 hypomagnesemia-magnesium [...] team: 35-minute Charges/Coding Visit Charges Inpatient E&M: 88591 Subs Hosp L2 05/27/25 1533 Cosigner Signature (if applicable): CC: ~ Signed [facility]06-28-2025 Progress note Author [facility] Note Date/Time May 26, 2025 1:39 pm [facility] Medical Records Department [address] [place] [address] Progress Note - Hospitalist 05/26/25 1335 MR#: [id number] Acct: [id number] Name: JOSEPH RINCON Rep #:[id number] : 1975 50 From: Mao Becker DO PCP: Dr. Abisai Haley MD Status:ADM IN Location: [place] [address]-1 Subjective Subjective Patient was seen and examined [...] will remain on her present medications, addiction social worker masters will talk with the patient #2 hypomagnesemia-magnesium [...] team: 35-minute Charges/Coding Visit Charges Inpatient E&M: 53987 Subs Hosp L2 05/26/25 1339 <Electronically signed by Mao Becker DO> Cosigner Signature (if applicable): CC: ~ Signed [facility] Work Phone: 1(642) 393-785606-28-2025 Progress note [facility] Medical Records Department [address] [place] [address] Progress Note - Hospitalist 05/26/25 1335 MR#: [id number] Acct: [id number] Name: JOSEPH RINCON Rep #:[id number] : 1975 50 From: Mao Becker DO PCP: Dr. Abisai Haley MD Status:ADM IN Location: [place] [address] Subjective Subjective Patient was seen and examined [...] will remain on her present medications, addiction social worker masters will talk with the patient #2 hypomagnesemia-magnesium [...] team: 35-minute Charges/Coding Visit Charges Inpatient E&M: 57880 Subs Hosp L2 05/26/25 1339 Cosigner Signature (if applicable): CC: ~ Signed [facility]06-27-2025 Progress note Author Mao Becker [facility] Note Date/Time May 25, 2025 5:04 pm [facility] Medical Records Department [address] [place] [address] Progress Note - Hospitalist 05/25/25 1709 MR#: [id number] Acct: [id number] Name: JOSEPH RINCON Rep #:[id number] : 1975 50 From: Mao Becker DO PCP: Dr. Abisai Haley MD Status:ADM IN Location: [place] [address] Hospitalist Note Patient was seen and examined today, she was admitted for alcohol detox-patient had just been discharged on 05/06/2025 after completing alcohol detox and treatment for pancreatitis. There is a note from addiction social worker masters thatstates the patient will follow-up with 180 for outpatient [facility] treatment. 05/25/251703 <Electronically signed by Mao Becker DO> Cosigner Signature (if applicable): CC: ~ Signed [facility] Work Phone: [phone]) 141-899406-27-2025 Progress note [facility] Medical Records Department [address] [place] [address] Progress Note - Hospitalist 05/25/251701 MR#: [id number] Acct: [id number] Name: JOSEPH RINCON Rep #:[id number] : 1975 50 From: Mao Becker DO PCP: Dr. Abisai Haley MD Status:ADM IN Location: [place] [address] Hospitalist Note Patient was seen and examined today, she was admitted for alcohol detox-patient had just been discharged on 05/06/2025 after completing alcohol detox and treatment for pancreatitis. There is a note from addiction social worker masters thatstates the patient will follow-up with 180 for outpatient [facility] treatment. 05/25/251703 Cosigner Signature (if applicable): CC: ~ Signed [facility]06-27-2025 Discharge summary Author Andrew Maurice [facility] Note Date/Time May 25, 2025 2:37 am [facility] Medical Records Department [address] [place] [address] Emergency Department Summary 05/25/25 MR#: [id number] Acct: [id number] Name: JOSEPH RINCON Rep #:[id number] : 1975 50 From: Andrew elizondo DO PCP: Dr. Abisai Haley MD Status:ADM IN Location: [facility] GG244-6 HPI History of Present Illness Chief Complaint: [...] intact Psych: Cooperative, appropriate mood and affect [facility] Medical History Pancreatitis Hypokalemia Nausea & [...] (Auto) 49.9 Lymph % (Auto) 41.1 H [place] % (Auto) 7.7 Eos % (Auto) 0.7 [...] Clarity Clear Urine pH 6.0 Ur Specific [place] 1.015 Urine Protein 30 H Urine Glucose [...] Discharge Plan Disposition Disposition: Acute Care Hospital [facility] Discharge Date/Time: 05/25/25 02:28 What to do if you have Problems For any increased pain, shortness of breath, bleeding, nausea or vomiting, chestpain, or any unexpected problems, contact your Primary Care Provider. Call [facility] ([phone]) or report to the closest Emergency Room. Call 911 if necessary. 05/25/25 0237 <Electronically signed by Andrew Maurice DO> Cosigner Signature (if applicable): CC: Dr. Abisai Haley MD ~ Signed [facility] Work Phone: 1([phone]) 921-799506-27-2025 History and physical note Author Myra Null [facility] Note Date/Time May 25, 2025 1:54 [facility] Medical Records Department [address] [place] [address] H&P Exam - Hospitalist 05/25/25 0037 MR#: [id number] Acct: [id number] Name: JOSEPH RINCON Rep #:[id number] : 1975 50 From: Myra Null MD [...] (>1/5 vodka daily) who presents to the [facility] ED on 05/25/25 with history of requesting [...] 1, Zofran 4 mg IV x 1. [facility] Medical History Pancreatitis Hypokalemia Nausea & [...] (>1/5 vodka daily) who presents to the [facility] ED on 05/25/25 with history of requesting [...] admission presentation. Charges/Coding Visit Charges Inpatient E&M: 62912 Init Hosp L3 05/25/25 0154 <Electronically signed by Myra Null MD> Cosigner Signature (if applicable): CC: Dr. Myra Null MD; Dr. Abisai Haley MD~ Signed [facility] Work Phone: [phone]) 373-554306-27-2025 Discharge summary [facility] Medical Records Department [address] [place] [address] Emergency Department Summary 05/25/25 MR#: [id number] Acct: [id number] Name: JOSEPH RINCON Rep #:[id number] : 1975 50 From: Andrew elizondo DO PCP: Dr. Abisai Haley MD Status:ADM IN Location: [facility] QU357-3 HPI History of Present Illness Chief Complaint: [...] intact Psych: Cooperative, appropriate mood and affect [facility] Medical History Pancreatitis Hypokalemia Nausea & [...] (Auto) 49.9 Lymph % (Auto) 41.1 H [place] % (Auto) 7.7 Eos % (Auto) 0.7 [...] Clarity Clear Urine pH 6.0 Ur Specific [place] 1.015 Urine Protein 30 H Urine Glucose [...] Discharge Plan Disposition Disposition: Acute Care Hospital [facility] Discharge Date/Time: 05/25/25 02:28 What to do if you have Problems For any increased pain, shortness of breath, bleeding, nausea or vomiting, chestpain, or any unexpected problems, contact your Primary Care Provider. Call [facility] ([phone]) or report tothe closest Emergency Room. Call 911 if necessary. 05/25/25 0051 Cosigner Signature (if applicable): CC: Dr. Abisai Haley MD ~ Signed [facility]06-27-2025 History and physical note [facility] Medical Records Department [address] [place] [address] H&P Exam - Hospitalist 05/25/25 0037 MR#: [id number] Acct: [id number] Name: JOSEPH RINCON Rep #:[id number] : 1975 50 From: Myra Null MD [...] (>1/5 vodka daily) who presents to the [facility] ED on 05/25/25 with history of requesting [...] 1, Zofran 4 mg IV x 1. [facility] Medical History Pancreatitis Hypokalemia Nausea & [...] (>1/5 vodka daily) who presents to the [facility] ED on 05/25/25 with history of requesting [...] admission presentation. Charges/Coding Visit Charges Inpatient E&M: 91049 Init Hosp L3 05/25/25 0154 Cosigner Signature (if applicable): CC: Dr. Myra Null MD; Dr. Abisai Haley MD~ Signed [facility]06-08-2025 Discharge summary [facility] Medical Records Department [address] [place] [address] Instructions for Home/Discharge Instructions 05/06/25 1312 MR#: [id number] Acct: [id number] Name: JOSEPH RINCON Rep #:[id number] : 1975 50 From: Mao Becker DO [...] MD; Dr. Canelo Myers MD ~ Signed [facility]06-08-2025 [facility] Progress note Author Canelo Myers [facility] Note Date/Time May 04, 2025 9:53a m [facility] Medical Records Department [address] [place] [address] Progress Note - Hospitalist 05/04/25 0742 MR#: [id number] Acct: [id number] Name: JOSEPH RINCON Rep #:[id number] : 1975 50 From: Canelo Myers MD PCP: Dr. Abisai Haley MD Status:ADM IN Location: [place] [address] Reason for Visit Reason for Visit: Diagnoses [...] 04/27/25 14:17 SB (Rec: 04/27/25 14:17 SB [id number]) Nutrition Malnutrition Evidence of Yes Malnutrition Exists [...] % (Auto) 58.1, Lymph % (Auto) 23.0, [place] % (Auto) 15.4 H, Eos % (Auto) [...] Requested for PT OT eval and social worker masters to assist with discharge planning ? 05/03/2025; patient remains physical deconditioning. She is agreeable to being discharged with [facility] this was discussed with patient's son Tan was in the room Time spent in the patient's overall evaluation,decision-making process, review of diagnostic data, adjustment of management, discussion with other providers, nursing nursing and ancillary staff involved in patient's care documentation, 35minutes Charges/Coding Visit Charges Inpatient E&M: 43864 Subs Hosp L2 05/04/25 0953 <Electronically signed by Canelo Myers MD> Cosigner Signature (if applicable): CC: ~ Signed [facility] Work Phone: 1(361) [phone] Progress note [facility] Medical Records Department [address] [place] [address] Progress Note - Hospitalist 05/04/25 0742 MR#: [id number] Acct: [id number] Name: JOSEPH RINCON Rep #:[id number] : 1975 50 From: Canelo Myers MD PCP: Dr. Abisai Haley MD Status:ADM IN Location: [place] [address] Reason for Visit Reason for Visit: Diagnoses [...] 04/27/25 14:17 SB (Rec: 04/27/25 14:17 SB [id number]) Nutrition Malnutrition Evidence of Yes Malnutrition Exists [...] % (Auto) 58.1, Lymph % (Auto) 23.0, [place] % (Auto) 15.4 H, Eos % (Auto) [...] Requested for PT OT eval and social worker masters to assist with discharge planning ? 05/03/2025; patient remains physical deconditioning. She is agreeable to being discharged with [facility] this was discussed with patient's son Tan was in the room Time spent in the patient's overall evaluation,decision-making process, review of diagnostic data, adjustment of management, discussion with other providers, nursing nursing and ancillary staff involved in patient's care documentation, 35minutes Charges/Coding Visit Charges Inpatient E&M: 07600 Subs Hosp L2 05/04/25 0953 Cosigner Signature (if applicable): CC: ~ Signed [facility]06-05-2025 Progress note Author Canelo Myers [facility] Note Date/Time May 03, 2025 11:37 am [facility] Medical Records Department [address] [place] [address] Progress Note - Hospitalist 05/03/25 1136 MR#: [id number] Acct: [id number] Name: JOSEPH RINCON Rep #:[id number] : 1975 50 From: Canelo Myers MD PCP: Dr. Abisai Haley MD Status:ADM IN Location: [place] [address] Reason for Visit Reason for Visit: Diagnoses Acute pancreatitis without necrosis or infection, unspecified (04/26/25) Subjective Subjective Patient has completed phenobarb taper. She however remains physically deconditioned. She is agreeable to being discharged to a [facility] for [facility] Objective Data Objective Data [...] 04/27/25 14:17 SB (Rec: 04/27/25 14:17 SB [id number]) Nutrition Malnutrition Evidence of Yes Malnutrition Exists [...] % (Auto) 61.1, Lymph % (Auto) 19.7, [place] % (Auto) 15.1 H, Eos % (Auto) [...] Requested for PT OT eval and social worker masters to assist with discharge planning ? 05/03/2025; patient remains physical deconditioning. She is agreeable to being discharged with [facility] this was discussed with patient's son Tan was in the room Charges/Coding Visit Charges Inpatient E&M: 12312 Subs Hosp L2 05/03/25 1137 <Electronically signed by Canelo Myers MD> Cosigner Signature (if applicable): CC: ~ Signed [facility] Work Phone: 1(459) 201-778506-05-2025 Progress note [facility] Medical Records Department [address] [place] [address] Progress Note - Hospitalist 05/03/25 1136 MR#: [id number] Acct: [id number] Name: JOSEPH RINCON Rep #:[id number] : 1975 50 From: Canelo Myers MD PCP: Dr. Abisai Haley MD Status:ADM IN Location: [place] [address] Reason for Visit Reason for Visit: Diagnoses Acute pancreatitis without necrosis or infection, unspecified (04/26/25) Subjective Subjective Patient has completed phenobarb taper. She however remains physically deconditioned. She is agreeable to being discharged to a [facility] for [facility]hab Objective Data Objective Data [...] 04/27/25 14:17 SB (Rec: 04/27/25 14:17 SB [id number]) Nutrition Malnutrition Evidence of Yes Malnutrition Exists [...] % (Auto) 61.1, Lymph % (Auto) 19.7, [place] % (Auto) 15.1 H, Eos % (Auto) [...] Requested for PT OT eval and social worker masters to assist with discharge planning ? 05/03/2025; patient remains physical deconditioning. She is agreeable to being discharged with [facility] this was discussed with patient's son Tan was in the room Charges/Coding Visit Charges Inpatient E&M: 23366 Subs Hosp L2 05/03/25 1137 Cosigner Signature (if applicable): CC: ~ Signed [facility]06-04-2025 Progress note Author Canelo Myers [facility] Note Date/Time May 02, 2025 11:07 am [facility] Medical Records Department [address] [place] [address] Progress Note - Hospitalist 05/02/25 0736 MR#: [id number] Acct: [id number] Name: JOSEPH RINCON Rep #:[id number] : 1975 50 From: Canelo Myers MD PCP: Dr. Abisai Haley MD Status:ADM IN Location: [place] [address] Reason for Visit Reason for Visit: Diagnoses [...] 04/27/25 14:17 SB (Rec: 04/27/25 14:17 SB [id number]) Nutrition Malnutrition Evidence of Yes Malnutrition Exists [...] % (Auto) 57.2, Lymph % (Auto) 22.5, [place] % (Auto) 15.8 H, Eos % (Auto) [...] Requested for PT OT eval and social worker masters to assist with discharge planning Charges/Coding Visit Charges Inpatient E&M: 33227 Subs Hosp L2 05/02/25 1107 <Electronically signed by Canelo Myers MD> Cosigner Signature (if applicable): CC: ~ Signed [facility] Work Phone: 1(431) 218-227506-04-2025 Progress note [facility] Medical Records Department [address] [place] [address] Progress Note - Hospitalist 05/02/25 0736 MR#: [id number] Acct: [id number] Name: JOSEPH RINCON Rep #:[id number] : 1975 50 From: Canelo Myers MD PCP: Dr. Abisai Haley MD Status:ADM IN Location: [place] [address] Reason for Visit Reason for Visit: Diagnoses [...] 04/27/25 14:17 SB (Rec: 04/27/25 14:17 SB [id number]) Nutrition Malnutrition Evidence of Yes Malnutrition Exists [...] % (Auto) 57.2, Lymph % (Auto) 22.5, [place] % (Auto) 15.8 H, Eos % (Auto) [...] Requested for PT OT eval and social worker masters to assist with discharge planning Charges/Coding Visit Charges Inpatient E&M: 64164 Subs Hosp L2 05/02/25 1107 Cosigner Signature (if applicable): CC: ~ Signed [facility]06-03-2025 Progress note Author Canelo Myers [facility] Note Date/Time May 01, 2025 9:31a m [facility] Medical Records Department [address] [place] [address] Progress Note - Hospitalist 05/01/25929 MR#: [id number] Acct: [id number] Name: JOSEPH RINCON Rep #:[id number] : 1975 50 From: Canelo Myers MD PCP: Dr. Abisai Haley MD Status:ADM IN Location: [place] [address] Reason for Visit Reason for Visit: Diagnoses [...] 04/27/25 14:17 SB (Rec: 04/27/25 14:17 SB [id number]) Nutrition Malnutrition Evidence of Yes Malnutrition Exists [...] Requested for PT OT eval and social worker masters to assist with discharge planning Charges/Coding Visit Charges Inpatient E&M: 95170 Subs Hosp L2 05/01/25 0931 <Electronically signed by Canelo Myers MD> Cosigner Signature (if applicable): CC: ~ Signed [facility] Work Phone: 1([phone]) 167-484206-03-2025 Progress note [facility] Medical Records Department [address] [facility] [place] [address] Progress Note - Hospitalist 05/01/25929 MR#: [id number] Acct: [id number] Name: JOSEPH RINCON Rep #:[id number] : 1975 50 From: Canelo Myers MD PCP: Dr. Abisai Haley MD Status:ADM IN Location: [place] [address] Reason for Visit Reason for Visit: Diagnoses [...] 04/27/25 14:17 SB (Rec: 04/27/25 14:17 SB [id number]) Nutrition Malnutrition Evidence of Yes Malnutrition Exists [...] Requested for PT OT eval and social worker masters to assist with discharge planning Charges/Coding Visit Charges Inpatient E&M: 22811 Subs Hosp L2 05/01/25 0931 Cosigner Signature (if applicable): CC: ~ Signed [facility]06-02-2025 Progress note Author Canelo Myers [facility] Note Date/Time April 30, 2025 9:35a m [facility] Medical Records Department [address] [place] [address] Progress Note - Hospitalist 04/30/2514 MR#: [id number] Acct: [id number] Name: JOSEPH RINCON Rep #:[id number] : 1975 50 From: Canelo Myers MD PCP: Dr. Abisai Haley MD Status:ADM IN Location: [place] [address] Reason for Visit Reason for Visit: Diagnoses [...] 04/27/25 14:17 SB (Rec: 04/27/25 14:17 SB [id number]) Nutrition Malnutrition Evidence of Yes Malnutrition Exists [...] % (Auto) 59.8, Lymph % (Auto) 23.4, [place] % (Auto) 13.8 H, Eos % (Auto) [...] weight trends. Charges/Coding Visit Charges Inpatient E&M: 16318 Subs Hosp L2 04/30/25 0920 <Electronically signed by Canelo Myers MD> Sugar Signature (if applicable): CC: ~ Signed [facility] Work Phone: 1(389) 592-216906-02-2025 Progress note [facility] Medical Records Department [address] [facility] [place] [address] Progress Note - Hospitalist 04/30/25 0814 MR#: [id number] Acct: [id number] Name: JOSEPH RINCON Rep #:[id number] : 1975 50 From: Canelo Myers MD PCP: Dr. Abisai Haley MD Status:ADM IN Location: [place] [address] Reason for Visit Reason for Visit: Diagnoses [...] 04/27/25 14:17 SB (Rec: 04/27/25 14:17 SB [id number]) Nutrition Malnutrition Evidence of Yes Malnutrition Exists [...] % (Auto) 59.8, Lymph % (Auto) 23.4, [place] % (Auto) 13.8 H, Eos % (Auto) [...] weight trends. Charges/Coding Visit Charges Inpatient E&M: 20914 Subs Hosp L2 04/30/25 0935 Cosigner Signature (if applicable): CC: ~ Signed [facility]06-01-2025 Progress note Author Canelo Myers [facility] Note Date/Time April 29, 2025 8:44a m [facility] Medical Records Department [address] [place] [address] Progress Note - Hospitalist 04/29/25 0733 MR#: [id number] Acct: [id number] Name: JOSEPH RINCON Rep #:[id number] : 1975 50 From: Canelo Myers MD PCP: Dr. Abiasi Haley MD Status:ADM IN Location: [place] [address] Reason for Visit Reason for Visit: Diagnoses [...] 04/27/25 14:17 SB (Rec: 04/27/25 14:17 SB [id number]) Nutrition Malnutrition Evidence of Yes Malnutrition Exists [...] 72.9 H, Lymph % (Auto) 14.1 L, [place] % (Auto) 10.9 H, Eos % (Auto) [...] 50 Minutes Charges/Coding Visit Charges Inpatient E&M: 97224 Subs Hosp L3 04/29/25 0844 <Electronically signed by Canelo Myers MD> Cosigner Signature (if applicable): CC: ~ Signed [facility] Work Phone: 1(539) 809-896706-01-2025 Progress note [facility] Medical Records Department [address] [place] [address] Progress Note - Hospitalist 04/29/25 0733 MR#: [id number] Acct: [id number] Name: JOSEPH RINCON Rep #:[id number] : 1975 50 From: Canelo Myers MD PCP: Dr. Abisai Haley MD Status:ADM IN Location: [place] [address] Reason for Visit Reason for Visit: Diagnoses [...] 04/27/25 14:17 SB (Rec: 04/27/25 14:17 SB [id number]) Nutrition Malnutrition Evidence of Yes Malnutrition Exists [...] 72.9 H, Lymph % (Auto) 14.1 L, [place] % (Auto) 10.9 H, Eos % (Auto) [...] 50 Minutes Charges/Coding Visit Charges Inpatient E&M: 05975 Subs Hosp L3 04/29/25 0844 Cosigner Signature (if applicable): CC: ~ Signed [facility]05-31-2025 Progress note Author Canelo Myers [facility] Note Date/Time April 28, 2025 9:47a m [facility] Medical Records Department [address] [place] [address] Progress Note - Hospitalist 04/28/25 0942 MR#: [id number] Acct: [id number] Name: JOSEPH RINCON Rep #:[id number] : 1975 50 From: Canelo Myers MD PCP: Dr. Abisai Haley MD Status:ADM IN Location: [place] [address] Reason for Visit Reason for Visit: Diagnoses [...] 04/27/25 14:17 SB (Rec: 04/27/25 14:17 SB [id number]) Nutrition Malnutrition Evidence of Yes Malnutrition Exists [...] 78.0 H, Lymph % (Auto) 12.5 L, [place] % (Auto) 8.0, Eos % (Auto) 0.8, [...] 52 Minutes Charges/Coding Visit Charges Inpatient E&M: 01213 Subs Hosp L3 04/28/25 0947 <Electronically signed by Canelo Myers MD> Cosigner Signature (if applicable): CC: ~ Signed [facility] Work Phone: 1(568) 860-220305-31-2025 Progress note [facility] Medical Records Department [address] [place] [address] Progress Note - Hospitalist 04/28/25 0942 MR#: [id number] Acct: [id number] Name: JOSEPH RINCON Rep #:[id number] : 1975 50 From: Canelo Myers MD PCP: Dr. Abisai Haley MD Status:ADM IN Location: [place] [address] Reason for Visit Reason for Visit: Diagnoses [...] 04/27/25 14:17 SB (Rec: 04/27/25 14:17 SB [id number]) Nutrition Malnutrition Evidence of Yes Malnutrition Exists [...] 78.0 H, Lymph % (Auto) 12.5 L, [place] % (Auto) 8.0, Eos % (Auto) 0.8, [...] 52 Minutes Charges/Coding Visit Charges Inpatient E&M: 24736 Subs Hosp L3 04/28/25 0947 Cosigner Signature (if applicable): CC: ~ Signed [facility]05-30-2025 Progress note Author Canelo Myers [facility] Note Date/Time April 27, 2025 1:15p [facility] Medical Records Department [address] [place] [address] Progress Note - Hospitalist 04/27/25 0939 MR#: [id number] Acct: [id number] Name: JOSEPH RINCON Rep #:[id number] : 1975 50 From: Canelo Myers MD PCP: Dr. Abisai Haley MD Status:ADM IN Location: [place] [address] Reason for Visit Reason for Visit: Diagnoses [...] (Auto) 84.6 H, Lymph % (Auto) 7.3L, [place] % (Auto) 7.0, Eos % (Auto) 0.0, [...] Clarity Clear, Urine pH 6.0, Ur Specific [place] 1.010, Urine Protein 30 H, Urine Glucose [...] (Auto) 84.0 H, Lymph % (Auto)7.3 L, [place] % (Auto) 7.9, Eos % (Auto) 0.1, [...] fatty infiltration of the liver. Reading Location: [facility] Physical Exam Narrative GENERAL: cooperative HEENT: [...] 50 Minutes Charges/Coding Visit Charges Inpatient E&M: 15992 [facility] Hosp 04/27/25 8805 <Electronically signed by Canelo Myers MD> Cosigner Signature (if applicable): CC: ~ Signed [facility] Work Phone: [phone]) 117-631305-30-2025 Progress note [facility] Medical Records Department [address] [place] [address] Progress Note - Hospitalist 04/27/25 0939 MR#: [id number] Acct: [id number] Name: JOSEPH RINCON Rep #:[id number] : 1975 50 From: Canelo Myers MD PCP: Dr. Abisai Haley MD Status:ADM IN Location: [place] [address] Reason for Visit Reason for Visit: Diagnoses [...] (Auto) 84.6 H, Lymph % (Auto) 7.3L, [place] % (Auto) 7.0, Eos % (Auto) 0.0, [...] Clarity Clear, Urine pH 6.0, Ur Specific [place] 1.010, Urine Protein 30 H, Urine Glucose [...] (Auto) 84.0 H, Lymph % (Auto)7.3 L, [place] % (Auto) 7.9, Eos % (Auto) 0.1, Baso % (Auto) 0.3, Absolute Neuts (auto) 9.6 H, Absolute Lymphs (auto) 0.83, Nucleated RBC % 0, PT 12.9, INR 1.0, [id number], Potassium 3.8, Chloride 96 L, Carbon Dioxide [...] fatty infiltration of the liver. Reading Location: [facility] Physical Exam Narrative GENERAL: cooperative HEENT: [...] 50 Minutes Charges/Coding Visit Charges Inpatient E&M: 93684 Subs Hosp L3 04/27/25 1315 Cosigner Signature (if applicable): CC: ~ Signed [facility]05-29-2025 History and physical note Author Julius Moncada [facility] Note Date/Time April 26, 2025 8:28p m [facility] Medical Records Department [address] [place] [address] H&P Exam - Hospitalist 04/26/25 1718 MR#: [id number] Acct: [id number] Name: JOSEPH RINCON Rep #:[id number] : 1975 50 From: Julius Moncada MD PCP: Dr. Abisai Haley MD Status:ADM IN Location: [facility] [id number]- 1 HPI - General General Date of [...] phosphatase 122 total protein 7.7, albumin 4.5 [facility] Medical History Strain of left foot [...] (Auto) 84.6 H, Lymph % (Auto) 7.3L, [place] % (Auto) 7.0, Eos % (Auto) 0.0, [...] Clarity Clear, Urine pH 6.0, Ur Specific [place] 1.010, Urine Protein 30 H, Urine Glucose [...] fatty infiltration of the liver. Reading Location: [id number] Assessment & Plan Assessment/Plan (1) Pancreatitis: PLAN: [...] - No concerns regarding exocrine insufficiency - [place] pain control with Tylenol and opioids - [...] Moncada MD; Dr. Abisai Haley MD~ Signed [facility] Work Phone: [phone]) [phone] History and physical note [facility] Medical Records Department [address] [place] [address] H&P Exam - Hospitalist 04/26/25 1718 MR#: [id number] Acct: [id number] Name: JOSEPH RINCON Rep #:[id number] : 1975 50 From: Julius Moncada MD PCP: Dr. Abisai Haley MD Status:ADM IN Location: [place] [address] HPI - General General Date of Admission: [...] phosphatase 122 total protein 7.7, albumin 4.5 [facility] Medical History Strain of left foot [...] (Auto) 84.6 H, Lymph % (Auto) 7.3L, [place] % (Auto) 7.0, Eos % (Auto) 0.0, [...] Clarity Clear, Urine pH 6.0, Ur Specific [place] 1.010, Urine Protein 30 H, Urine Glucose [...] fatty infiltration of the liver. Reading Location: [id number] Assessment & Plan Assessment/Plan (1) Pancreatitis: PLAN: [...] - No concerns regarding exocrine insufficiency - [place] pain control with Tylenol and opioids - [...] Moncada MD; Dr. Abisai Haley MD~ Signed [facility]05-29-2025 Evaluation note* Diagnosis Onset Date Resolution Status Admit Date Hypokalemia acute April 26 5:13pm Intractable abdominal pain acute April 26, 2025 5:13pm Nausea & vomiting acute March 5:13pm Pancreatitis acute April 26 5:13pm [facility] Work Phone: [phone]) 496-197305-29-2025 Evaluation note* Diagnosis Onset Date Resolution Status Admit Date Hypokalemia inactive April 26 5:13pm Intractable abdominal pain inactive April 26, 2025 5:13pm Nausea & vomiting inactive March 5:13pm Pancreatitis inactive April 26 5:13pm Admitted to alcohol detoxification center acute May 25, 2025 12:33am [facility] Work Phone: [phone] Evaluation note* Diagnosis Onset Date Resolution Status [...] diabetes mellitus acute July 17, 2025 12:56pm [facility] Work Phone: [phone] Discharge summary Author Humphrey Garcia [facility] Note Date/Time April 26, 2025 4:45p m [facility] Medical Records Department [address] [place] [address] Emergency Department Summary 04/26/25 MR#: [id number] Acct: [id number] Name: JOSEPH RINCON Rep #:[id number] : 1975 50 From: Humphrey Garcia DO [...] normal colored stool. Patient denies any recentcontacts [facility] Medical History Strain of left foot [...] following commands knew that she was at [facility] the year is 2024 Skin: Warm, [...] 84.6 H Lymph % (Auto) 7.3 L [place] % (Auto) 7.0 Eos % (Auto) 0.0 [...] Clarity Clear Urine pH 6.0 Ur Specific [place] 1.010 Urine Protein 30 H Urine Glucose [...] fatty infiltration of the liver. Reading Location: [id number] Discharge Plan Triage Chief Complaint: Abd Pain [...] MD [Primary Care Provider] - Print Language: Libyan Disposition Disposition: [facility] What to do if you have Problems For any increased pain, shortness of breath, bleeding, nausea or vomiting, chestpain, or any unexpected problems, contact your Primary Care Provider. Call [facility] ([phone]) or report to the closest Emergency Room. Call 911 if necessary. 04/26/25 1645 <Electronically signed by Humphrey Garcia DO> Cosigner Signature (if applicable): CC: Dr. Abisai Haley MD ~ Signed [facility] Work Phone: [phone]) 523-678105-29-2025 Discharge summary [facility] Medical Records Department [address] [place] [address] Emergency Department Summary 04/26/25 MR#: [id number] Acct: [id number] Name: JOSEPH RINCON Rep #:[id number] : 1975 50 From: Humphrey Garcia DO [...] normal colored stool. Patient denies any recentcontacts [facility] Medical History Strain of left foot [...] following commands knew that she was at [facility] the year is 2024 Skin: Warm, [...] 84.6 H Lymph % (Auto) 7.3 L [place] % (Auto) 7.0 Eos % (Auto) 0.0 [...] Clarity Clear Urine pH 6.0 Ur Specific [place] 1.010 Urine Protein 30 H Urine Glucose [...] fatty infiltration of the liver. Reading Location: [facility] Discharge Plan Triage Chief Complaint: Abd [...] MD [Primary Care Provider] - Print Language: Libyan Disposition Disposition: [facility] What to do if you have Problems For any increased pain, shortness of breath, bleeding, nausea or vomiting, chestpain, or any unexpected problems, contact your Primary Care Provider. Call [facility] ([phone]) or report tothe closest Emergency Room. Call 911 if necessary. 04/26/25 1645 Cosigner Signature (if applicable): CC: Dr. Abisai Haley MD ~ Signed [facility]05-29-2025 Radiology Diagnostic study note [facility] Imaging Services [address] [place], [place] [address] Abdomen/Pelvis W IV Cont ONLY MR#: [id number] Acct: [id number] Name: JOSEPH RINCON Rep #: [id number] : 1975 F 50 From: Jhonny Roger MD PCP: Dr. Abisai Haley MD Status: REG ER Study:Abdomen/Pelvis W IV Cont ONLY Date of E xam: 04/26/25 Exam# [id number] Ordering Dr: Reina Garcia DO PROCEDURE: ABDOMEN/PELVIS [...] fatty infiltration of the liver. Reading Location: [id number] CC: Dr. Abisai Haley MD; Dr. Humphrey Garcia DO ~ Bariatric Nurse: Signed [facility]05-15-2025 Hospital Discharge instructions Additional Instructions Plenty of fluids and rest. Sleep on the main floor tonight. Due to fall risk. No driving for the next 24 hours. Use your Protonix at home for stomach discomfort due to the alcohol. Follow-up with your doctor if not improving or return if worse.[facility] Work Phone: [phone]) [phone] Radiology Diagnostic study note [facility] Imaging Services [address] [place] [address] Chest PA and Lateral MR#: [id number] Acct: [id number] Name: JOSEPH RINCON Rep #: [id number] : 1975 F 50 From: Jacque Martinez MD PCP: Dr. Abisai Haley MD Status: REG ER Study:Chest PA and Lateral Date of Exam: 04/11/25 Exam# [id number] Ordering Dr: Sheron Colon MD PROCEDURE: CHEST [...] Haley MD; Dr. Francisco Colon MD ~ Bariatric Nurse: Signed [facility]05-07-2025 Discharge summary [facility] Medical Records Department [address] [place] [address] Emergency Department Summary 04/04/25 MR#: [id number] Acct: [id number] Name: JOSEPH RINCON Rep #:[id number] : 1975 50 From: Imani Ruelas PCP: [...] 77.0 H Lymph % (Auto) 14.0 L [place] % (Auto) 7.8 Eos % (Auto) 0.2 [...] process is seen. Negative examination. [facility]/Pelvis CT 04/04/25 12:02 IMPRESSION: 1. Correlate [...] 4. Additional description as above. Reading Location: [facility] Rhythm Strip Rhythm Strip: Sinus [...] Staff - Active Staff] - Print Language: Libyan Disposition Disposition: Home, Self Care What to do if you have Problems For any increased pain, shortness of breath, bleeding, nausea or vomiting, chestpain, or any unexpected problems, contact your Primary Care Provider. Call [facility] ([phone]) or report tothe closest Emergency Room. Call 911 if necessary. 04/04/25 1614 Cosigner Signature (if applicable): CC: Dr. Abisai Haley MD ~ Signed [facility]05-07-2025 Discharge summary Author Imani [facility] Note Date/Time April 04, 2025 4:07pm [facility] Medical Records Department [address] [place] [address] Emergency Department Summary 04/04/25 MR#: [id number] Acct: [id number] Name: JOSEPH RINCON Rep #:[id number] : 1975 50 From: Imani Ruelas PCP: [...] had intermittent hot flashes and then chills/sweats. [facility] Medical History Strain of left foot [...] 77.0 H Lymph % (Auto) 14.0 L [place] % (Auto) 7.8 Eos % (Auto) 0.2 [...] process is seen. Negative examination. Reading Location: [facility] Abdomen/Pelvis CT 04/04/25 12:02 IMPRESSION: 1. [...] 4. Additional description as above. Reading Location: [id number] Rhythm Strip Rhythm Strip: Sinus Tach Rate: [...] Staff - Active Staff] - Print Language: Libyan Disposition Disposition: Home, Self Care What to do if you have Problems For any increased pain, shortness of breath, bleeding, nausea or vomiting, chestpain, or any unexpected problems, contact your Primary Care Provider. Call [facility] ([phone]) or report to the closest Emergency Room. Call 911 if necessary. 04/04/25 1607 <Electronically signed by Imani Knight DO> Cosigner Signature (if applicable): CC: Dr. Abisai Haley MD ~ Signed [facility] Work Phone: [phone] Radiology Diagnostic study note [facility] Imaging Services [address] [place], [place] [address] Abdomen/Pelvis W IV Cont ONLY MR#: [id number] Acct: [id number] Name: JOSEPH RINCON Rep #: [id number] : 1975 F 50 From: Odalis Giraldo MD PCP: Dr. Abisai Haley MD Status: REG ER Study:Abdomen/Pelvis W IV Cont ONLY Date of E xam: 04/04/25 Exam# [id number] Ordering Dr: Selene Knight DO PROCEDURE: ABDOMEN/PELVIS [...] lobe airspace disease is new from prior, [id number] x 24 mm (series 2, image 11). [...] 4. Additional description as above. Reading Location: [facility] CC: Dr. Abisai Haley MD; Dr. Imani Knight DO ~ Bariatric Nurse: Signed [facility]05-07-2025 Radiology Diagnostic study note [facility] Imaging Services [address] [place] [address] Chest 1 View (Portable) MR#: [id number] Acct: [id number] Name: JOSEPH RINCON Rep #: [id number] : 1975 F 50 From: Guido Valles MD PCP: Dr. Abisai Haley MD Status: REG ER Study:Chest 1 View (Portable) Date of Exam: 04/04/25 Exam# [id number] Ordering Dr: Selene Knight DO PROCEDURE: CHEST 1 VIEW (PORTABLE) 04/04/2025 REASON FOR EXAM: CHEST PAIN TECHNIQUE: Frontal view of the chest. COMPARISON: Chest x-ray 11/12/2024 RAD/Chest 1 View (Portable) IMPRESSION: Lungs appear clear throughout. No pleural effusion or pneumothorax is seen. The cardiomediastinal silhouette is stable, without evidence of cardiomegaly. No acute osseous process is seen. Negative examination. Reading Location: [place] [address] CC: Dr. Abisai Haley MD; Dr. Imani Knight DO ~ Bariatric Nurse: Signed [facility]05-25-2024 NoteHNO ID: [id number] Author: ARETHA SCHOFIELD APRN.SPRINKLER REPAIR TECHNICIAN Service: ? Author Type: Nurse Practitioner Type: [...] drugs Objective Physical Exam (more content not included)...[facility]05-25-2024 Instructions * Patient Instructions* Aretha Schofield [...] illness Aretha Schofield APRN.CNP [facility] History of Present illness Narrative* Aretha Schofield [...] Discussed expected course of illness Aretha Schofield APRN.SPRINKLER REPAIR TECHNICIAN [facility]23 Discharge summary Author Caprice Jerry [facility] July 29, 2023 5:41pm Note Date/Time July 29, 2023 2: 37pm [facility] Medical Records Department [address] [place] [address] Emergency Department Summary 07/29/23 MR#: [id number] Acct: [id number] Name: JOSEPH RINCON Rep #:[id number] : 1975 48 From: Caprice Jerry MD [...] time that did not show any disease. [facility] Medical History Acute lumbar myofascial strain [...] % (Auto) 63.7 Lymph % (Auto) 25.4 [place] % (Auto) 8.5 Eos % (Auto) 1.6 [...] your Primary Care Provider. Call [facility] ([phone]) or report to the closest Emergency Room. Call 911 if necessary. 07/29/23 1741 <Electronically signed by Caprice Jerry MD> Cosigner Signature (if applicable): CC: Milana Garcia DO ~ Signed [facility] Work Phone: [phone] Jerry [facility] May 25, 2023 2:53am Note Date/Time May 24, 2023 11:2 0pm [facility] Medical Records Department [address] [place] [address] Emergency Department Summary 05/24/23 MR#: [id number] Acct: [id number] Name: JOSEPH RINCON Rep #:[id number] : 1975 48 From: Caprice Jerry MD [...] blood pressure. She just received a 14-day respiratory therapy assistant in the mail that she will wear. [...] but there has never been seizures documented. [facility] Medical History Acute lumbar myofascial strain [...] 40.3 L Lymph % (Auto) 45.0 H [place] % (Auto) 11.4 H Eos % (Auto) [...] Color Urine Clarity Urine pH Ur Specific [place] Urine Protein Urine Glucose (UA) Urine Ketones [...] (Auto) Neut % (Auto) Lymph % (Auto) [place] % (Auto) Eos % (Auto) Baso % [...] Clarity Clear Urine pH 6.5 Ur Specific [place] 1.005 Urine Protein Negative Urine Glucose (UA) [...] Patient's had no significant arrhythmias noted on respiratory therapy assistant throughout her ED stay. Portable chest x-ray [...] been worked up. She just got her respiratory therapy assistant in the mail tonight to put on. [...] your Primary Care Provider. Call [facility] ([phone]) or report to the closest Emergency Room. Call 911 if necessary. 05/25/23 025 <Electronically signed by Caprice Jerry MD> Troyigner Signature (if applicable): CC: Milana Garcia DO ~ Signed [facility] Work Phone: [phone]) [phone] Dyer [facility] May 05, 2023 12:31am Note Date/Time May 04, 2023 10:36 pm [facility] Medical Records Department [address] [place] [address] Emergency Department Summary 05/04/23 MR#: [id number] Acct: [id number] Name: JOSEPH RINCON Rep #:[id number] : 1975 48 From: John Dyer DO [...] a cardiac cath 11/19/2022 which was normal. [facility] Medical History Acute lumbar myofascial strain [...] % (Auto) 51.3 Lymph % (Auto) 35.6 [place] % (Auto) 9.4 Eos % (Auto) 2.7 [...] Primary Care Provider: Milana Garcia Referrals: Milana Garcai DO [Primary Care Provider] - What to do if you have Problems For any increased pain, shortness of breath, bleeding, nausea or vomiting, chestpain, or any unexpected problems, contact your Primary Care Provider. Call [facility] ([phone]) or report to the closest Emergency Room. Call 911 if necessary. 05/05/23 003 <Electronically signed by John Dyer DO> Cosigner Signature (if applicable): CC: Milana Garcia DO ~ Signed [facility] Work Phone: [phone]) 245-870305-13-[address] Johnson [facility] April 10, 2023 3:15pm Note Date/Time April 10, 2023 3:15p taisha [facility] Medical Records Department [address] [place] [address] Progress Note - Hospitalist 04/10/23 1511 MR#: [id number] Acct: [id number] Name: JOSEPH RINCON Rep #:[id number] : 1975 48 From: Radha Johnson DO PCP: Milana Garcia, DO Status:ADM I N Location: [place] [address] Hospitalist Note Is a 48-year-old white female [...] some issues for her at baseline. 04/10/23 9037 <Electronically signed by Radha Johnson DO> Cosigner Signature (if applicable): CC: ~ Signed [facility] Work Phone: [phone]) 587-608205-13-[address] Jacobs [facility] April 10, 2023 7:13am Note Date/Time April 09, 2023 11:06 pm [facility] Medical Records Department [address] [place] [address] Emergency Department Summary 04/09/23 MR#: [id number] Acct: [id number] Name: JOSEPH RINCON Rep #:[id number] : 1975 48 From: David Ruelas PCP: Milana Garcia, DO Status:ADM I N Location: [place] [address] HPI History of Present Illness Chief Complaint: [...] 85.1 H Lymph % (Auto) 11.3 L [place] % (Auto) 1.6 Eos % (Auto) 0.4 [...] Color Urine Clarity Urine pH Ur Specific [place] Urine Protein Urine Glucose (UA) Urine Ketones [...] (Auto) Neut % (Auto) Lymph % (Auto) [place] % (Auto) Eos % (Auto) Baso % [...] Clarity Clear Urine pH 6.5 Ur Specific [place] 1.010 Urine Protein Negative Urine Glucose (UA) [...] (Auto) Neut % (Auto) Lymph % (Auto) [place] % (Auto) Eos % (Auto) Baso % [...] Color Urine Clarity Urine pH Ur Specific [place] Urine Protein Urine Glucose (UA) Urine Ketones [...] sinus rhythm with a rate of 86. AL interval, QRS interval, and QTc intervals were all normal. [place] was normal. There are no acute ST [...] (42), Including time spent:, Discussing w/Patient &/or Family/Library Technical Assistant, Discussing w/Consultants, Arranging Admission or Transfer and Performing Direct Patient Care at Bedside Discharge Plan Dx/Rx/DC Orders Clinical Impression: High anion gap metabolic acidosis, Hypotension, Lactic acidosis Disposition Disposition: Acute Care Hospital [facility] Discharge Date/Time: 04/10/23 03:28 What to do if you have Problems For any increased pain, shortness of breath, bleeding, nausea or vomiting, chestpain, or any unexpected problems, contact your Primary Care Provider. Call [facility] ([phone]) or report to the closest Emergency Room. Call 911 if necessary. 04/10/23712 <Electronically signed by David Jacobs DO> Cosigner Signature (if applicable): CC: Milana Garcia DO ~ Signed [facility] Work Phone: [phone]) 428-519905-13-2023 History and physical note Author Dr. Kiran [facility] April 10, 2023 5:36am Note Date/Time April 10, 2023 1:28a m [facility] Medical Records Department [address] [place] [address] H&P Exam - Hospitalist 04/10/23 0128 MR#: [id number] Acct: [id number] Name: JOSEPH RINCON Rep #:[id number] : 1975 48 From: Young Kiran MD PCP: Milana Garcia DO Status:ADM I N Location: [place] [id number] HPI - General General Date of [...] before presentation patient had multiple loose stools. [facility] Medical History Acute lumbar myofascial strain [...] cranial nerves II through XII grossly intact. Hardin- Hallpike maneuver to the right was positive [...] 85.1 H, Lymph % (Auto) 11.3 L, Burlington % (Auto) 1.6, Eos % (Auto) 0.4, [...] Lovenox ordered. Charges/Coding Visit Charges Inpatient E&M: 61223 Init Hosp L3 04/10/23 0536 <Electronically signed by Young Kiran MD> Cosigner Signature (if applicable): CC: Dr. Young Kiran MD; Milana Garcia DO~ Signed [facility] Work Phone: [phone] 145-734204-24-[address] Gaviria [facility] March 22, 2023 10:43pm Note Date/Time March 22, 2023 7:0 6pm [facility] Medical Records Department [address] [place] [address] Emergency Department Summary 03/22/23 MR#: [id number] Acct: [id number] Name: JOSEPH RINCON Rep #:[id number] : 1975 47 From: Lauri Gaviria MD [...] Prior similar symptoms: No Recent Illness/Hospitalization: No [facility] Medical History Acute lumbar myofascial strain [...] % (Auto) 64.4 Lymph % (Auto) 22.7 Burlington % (Auto) 9.9 Eos % (Auto) 2.0 [...] Color Urine Clarity Urine pH Ur Specific Greenwich Urine Protein Urine Glucose (UA) Urine Ketones Urine Occult Blood Urine Nitrite Urine Bilirubin Urine Urobilinogen Ur Leukocyte Esterase Urine RBC Urine WBC Ur Squamous Epith Cells Amorphous Sediment Urine Bacteria Urine Mucus 03/22/23 20:20 WBC RBC Hgb Hct MCV MCH MCHC RDW Std Deviation RDW Coeff of Braxton Plt Count MPV Immature Gran % (Auto) Neut % (Auto) Lymph % (Auto) Burlington % (Auto) Eos % (Auto) Baso % [...] Sl. Cloudy Urine pH 6.5 Ur Specific Greenwich 1.005 Urine Protein Negative Urine Glucose (UA) [...] (Rate is 68 and EKG is normal. AL interval is 130 ms. Cures duration 86 ms. QT duration 408 ms. [place]ont is normal.) Treatment and Re-Evaluation :: Patient [...] your Primary Care Provider. Call [facility] ([phone]) or report to the closest Emergency Room. Call 911 if necessary. 03/22/23 5610 <Electronically signed by Lauri Gaviria MD> Cosigner Signature (if applicable): CC: Milana Garcia, DO ~ Signed [facility] Work Phone: [phone] 576-763204-24-2023 Hospital Discharge instructions Additional Instructions Call your doctor in the morning to have repeat blood work in 3 to 5 days. Let them know that your creatinine is elevated.[facility] Work Phone: [phone]) 975-927510-09-2022 Hospital Discharge instructions Additional Instructions Plenty of fluids and rest. No alcohol for the next 48 hours. No driving for the next 24 hours. Follow-up with your primary care physician. They can get an EEG to further evaluate you for possible seizures. Your labs and CAT scan tonight were unremarkable other than your alcohol level that was 237.[facility] Work Phone: [phone] 498-768608-23-2022 Instructions* Patient Instructions* Samantha Deleon APRN.SPRINKLER REPAIR TECHNICIAN - 07/21/2022 7:38 PM EDT SCIATICA: Your [...] bladder or bowel control. [facility] History of Present illness Narrative* Sabrina Hairston [...] 21, 2022 7:16 PM documented in [facility]Tr[facility]-2022 History of Present illness Narrative* Samantha Deleon APRN.CNP - 07/21/2022 7:10 PM EDT This note was created using Truzipriter. Subjective Joseph Rincon is a 47 year [...] weakness Denies using homeopathic or OTC medications PRISON PSYCHIATRIST. The history is provided by the patient. No cad draftsman was used. Musculoskeletal Problem This is a [...] Flexeril Follow up with PCP Samantha Deleon APRN.SPRINKLER REPAIR TECHNICIAN documented in this encounterTr[facility]-19-2019 History of Past illness Narrative* Problem Noted [...] of this encounter (statuses as of 07/21/2022) [facility]va [facility] Note Date/Time May 28, 2025 2:19 pm [facility] Medical Records Department [address] [place] [address] Counseling Note - Pharmacy 05/28/25 1332 MR#: [id number] Acct: [id number] Name: JOSEPH RINCON Rep #:[id number] : 1975 50 From: Sho Leyva PCP: Dr. Abisai Haley MD Status:ADM IN Location: [place] [address] Pharmacy [place] Med Reconciliation Pharmacy Service has performed discharge [...] by Sho Leyva> Date _ Sho Leyva [facility] Signature (if applicable): Date CC: ~ Signed [facility] Work Phone: Discharge summary Author Dr. Johnson [facility] April 11, 2023 9:49am Note Date/Time April 11, 2023 9:39a m [facility] Medical Records Department [facility] [place] [address] Discharge Summary 04/11/23 0936 MR#: [id number] Acct: [id number] Name: JOSEPH RINCON Rep #:[id number] : 1975 48 From: Radha Johnson DO PCP: Milana Garcia DO Status:ADM I N Location: [place] [address] Providers Date of Admission: 04/10/23 Date of [...] % (Auto) 67.1, Lymph % (Auto) 23.8, Burlington % (Auto) 7.8, Eos % (Auto) 0.7, [...] Self Care Charges/Coding Visit Charges Inpatient E&M: 66498 Disch Hosp >30min 04/11/23 0949 <Electronically signed by Radha Johnson DO> Cosigner Signature (if applicable): CC: Dr. Radha Johnson DO; Milana Garcia DO~ Signed [facility] Work Phone: Discharge summary Author Mao Becker [facility] Note Date/Time May 06, 2025 1:22p [facility] Medical Records Department [address] [place] [address] Instructions for Home/Discharge Instructions 05/06/25 1312 MR#: [id number] Acct: [id number] Name: JOSEPH RINCON Rep #:[id number] : 1975 50 From: Mao Becker DO [...] MD; Dr. Canelo Myers MD ~ Signed [facility] Work Phone: Discharge summary Author Mao Becker [facility] Note Date/Time May 28, 2025 1:16 pm [facility] Medical Records Department [address] [place] [address] Discharge Summary 05/28/25 1313 MR#: [id number] Acct: [id number] Name: JOSEPH RINCON Rep #:[id number] : 1975 50 From: Mao Becker DO PCP: Dr. Abisai Haley MD Status:ADM IN Location: [facility] [id number] Providers Date of Admission: 05/25/25 Date of Discharge: 05/28/25 Primary Care Physician: Abisai Haley MD Reason For Visit: ETOH DETOXIFICATION, WITHDRAWL Diagnosis Discharge Diagnosis (1) Admitted to alcohol detoxification center: Status: Acute Plan 1. Acute alcohol withdrawal-patient will remain on her present medications, addiction social worker masters will talk with the patient #2 hypomagnesemia-magnesium [...] was seen in the emergency room at [facility] desiring services for alcohol detox. She had been admitted previously only several weeks ago for pancreatitis and alcohol withdrawal and had already gone through the program at that time. Her toxicology screen was positive for barbiturates and benzodiazepines, but alcohol level was 312. Patient was admitted to [facility], orders were entered using the alcohol detox order set and she was seen by addiction social worker masters. Patient had minimal withdrawal symptoms to hospitalization [...] Self Care Charges/Coding Visit Charges Inpatient E&M: 60792 Disch Hosp >30min 05/28/25 1316 <Electronically signed by Mao Becker DO> Cosigner Signature (if applicable): CC: Dr. Abisai Haley MD; Dr. Mao Becker DO~ Signed [facility] Work Phone: Discharge summary Author Canelo [facility] Note Date/Time July 20, 2025 2: 48pm [facility] Medical Records Department [address] [place] [address] Discharge Summary 07/20/25 1442 MR#: [id number] Acct: [id number] Name: JOSEPH RINCON Rep #:[id number] : 1975 50 From: Canelo Myers MD PCP: Dr. Abisai Haley MD Status:ADM IN [facility] Prov[facility] Date of Admission: 07/17/25 Date of Discharge: 07/20/25 Primary Care Physician: Abisai Haley MD Reason For Visit: ACUTE PANCREATITIS, ALCOHOLIC [...] % (Auto) 66.7, Lymph % (Auto) 19.5, [place] % (Auto) 11.8 H, Eos % (Auto) 1.6, Baso % (Auto) 0.2, AbsoluteNeuts (auto) 2.8, Absolute Lymphs (auto) 0.83, Nucleated RBC % 0, Sodium 140, Potassium 3.6, Chloride 103, Carbon Dioxide 27.0, Anion Gap 10, BUN 4, Creatinine 0.40 L, Estim Creat Clear Calc 148.53, Est GFR (MDRD) Non-Af 122, BUN/Creatinine Ratio 10.1, Glucose 107 H, Calcium 7.6, Total Bilirubin 0.86, MST001 H, ALT 114 H, Alkaline Phosphatase 134 [...] Self Care Charges/Coding Visit Charges Inpatient E&M: 52362 Disch Hosp >30min 07/20/25 1448 <Electronically signed by Canelo Myers MD> Cosigner Signature (if applicable): CC: Dr. Abisai Haley MD; Dr. Canelo Myers MD~ Signed [facility] Work Phone: evaluation noteNo assessment information available [facility] Work Phone: evaluation note* Diagnosis Hip pain, acute, left- Primary [facility] this encounter [facility]* Diagnosis Onset Date Resolution Status Bilateral acute otitis media acute [facility] Work Phone: evaluation note* Diagnosis Onset Date Resolution Status Acute lumbar myofascial strain acute Strain of left hip acute Acute bronchitis acute ACS (acute coronary syndrome) acute Hypertensive urgency acute Hypertriglyceridemia acute Non-ST elevated myocardial infarction acute Hypertension chronic Type 2 diabetes mellitus [facility] Work Phone: evaluation note* Diagnosis Onset Date Resolution Status Acute lumbar myofascial strain acute Strain of left hip acute Acute bronchitis acute ACS (acute coronary syndrome) acute Hypertensive urgency acute Hypertriglyceridemia acute Non-ST elevated myocardial infarction acute HTN (hypertension) chronic Type 2 diabetes mellitus [facility] Work Phone: Evaluation note* Diagnosis Onset Date Resolution Status Acute bronchitis acute [facility] Work Phone: Evaluation note* Diagnosis Onset Date Resolution Status Acute bronchitis acute High anion gap metabolic acidosis acute Hypotension acute Lactic acidosis acute Vertigo acute Type 2 diabetes mellitus [facility] Work Phone: Evaluation note* Diagnosis Onset Date Resolution Status Acute bronchitis acute High anion gap metabolic acidosis resolved Hypotension resolved Lactic acidosis resolved Vertigo resolved [facility] Work Phone: Evaluation note* Diagnosis Onset Date Resolution Status Acute bronchitis acute High anion gap metabolic acidosis resolved Hypotension resolved Lactic acidosis resolved Vertigo resolved Hypertriglyceridemia acute Palpitations acute Syncope and collapse acute HTN (hypertension) chronic Tobacco use disorder chronic [facility] Work Phone: Evaluation note* Diagnosis Onset Date Resolution Status High anion gap metabolic acidosis resolved Hypotension resolved Lactic acidosis resolved Vertigo resolved Hypertriglyceridemia acute Palpitations acute Syncope and collapse acute HTN (hypertension) chronic Tobacco use disorder chronic Acute sinusitis acute [facility] Work Phone: Evaluation note* Diagnosis Onset Date Resolution Status Hypertriglyceridemia acute Palpitations acute Syncope and collapse acute HTN (hypertension) chronic Tobacco use disorder chronic Acute sinusitis acute [facility] Work Phone: Evaluation note* Diagnosis Onset Date Resolution Status Hypertriglyceridemia acute Palpitations acute Syncope and collapse acute HTN (hypertension) chronic Tobacco use disorder chronic Acute sinusitis acute Hypertriglyceridemia acute Palpitations acute HTN (hypertension) chronic Tobacco use disorder chronic [facility] Work Phone: Evaluation note* Diagnosis Onset Date Resolution Status Acute sinusitis acute Hypertriglyceridemia acute Palpitations acute HTN (hypertension) chronic Tobacco use disorder chronic Contact with or exposure to other viral diseases acute URI (upper respiratory infection) acute [facility] Work Phone: Evaluation note* Diagnosis Onset Date Resolution Status Plantar fasciitis of left foot acute Strain of left foot acute [facility] Work Phone: Evaluation note* Diagnosis Sinus congestion- Primary Other diseases of nasal cavity and sinuses Wheezing Nausea Nausea alone [facility] this encounter [facility]* Diagnosis Insomnia- Primary Insomnia, unspecified MOUNIKA [...] pain, acute, left documented in this encounter [facility] and [facility] note Author Myra Null [facility] Note Date/Time May 25, 2025 1:54 am [facility] Medical Records Department [address] [place] [address] H&P Exam - Hospitalist 05/25/25 0037 MR#: [id number] Acct: [id number] Name: JOSEPH RINCON Rep #:[id number] : 1975 50 From: Myra Null MD [...] (>1/5 vodka daily) who presents to the [facility] ED on 05/25/25 with history of requesting [...] 1, [facility] x [facility]. [facility] Pancreatitis Hypokalemia Nausea & [...] (>1/5 vodka daily) who presents to the [facility] ED on 05/25/25 with history of requesting [...] admission presentation. Charges/Coding Visit Charges Inpatient E&M: 35220 Init Hosp L3 05/25/25 0154 <Electronically signed by Myra Null MD> Cosigner Signature (if applicable): CC: Dr. Myra Null MD; Dr. Abisai Haley MD~ Signed [facility] Work Phone: Hospital Discharge instructions Additional Instructions Please follow-up with your PCP and pain management. Return for worsening of symptoms.[facility] Work Phone: Reason for referral (narrative)* Diagnostic Procedure Only (Urgent) - Pending Review Specialty Diagnoses / Procedures Referred By Contac t Referred To Contact XR IMAGING Diagnoses Hip pain, acute, left Procedures XR HIP GENERAL 3V PELV/AP/LAT LEFT RADEX HIP UNILATERAL WITH PELVIS 2-3 VIEWS Samantha Deleon APRN.SPRINKLER REPAIR TECHNICIAN [address] [place] [address] Xr Imaging Referral ID Status Reason Start Date Expiration Date Visits Requested Visits Authorized [id number] Pending Review Auto-Generat ed Referral 07/21/2022 08/20/2023 1 1 [facility] for referral (narrative)* Diagnostic Procedure Only (Urgent) - Closed Specialty Diagnoses / Procedures Referred By Contac t Referred To Contact XR IMAGING Diagnoses Hip pain, acute, left Procedures XR HIP GENERAL 3V PELV/AP/LAT LEFT RADEX HIP UNILATERAL WITH PELVIS 2-3 VIEWS Samantha Deleon APRN.SPRINKLER REPAIR TECHNICIAN [address] [place] [address] [place] [address] Referral ID Status Reason Start Date Expiration Date V isits Requested Visits Authorized [id number] Closed Auto-Generate d Referral 07/21/2022 08/20/2023 1 1 [facility]No reason for referral information availableWKettering [facility] Work Phone: Reason for visit Narrative* Diagnostic Procedure Only (Urgent) - Closed Specialty Diagnoses / Procedures Referred By Contac t Referred To Contact XR IMAGING Diagnoses Hip pain, acute, left Procedures XR HIP GENERAL 3V PELV/AP/LAT LEFT RADEX HIP UNILATERAL WITH PELVIS 2-3 VIEWS Samantha Deleon, TELETYPEWRITER INSTALLER.SPRINKLER REPAIR TECHNICIAN [address] [place] [address] [place] [address] Referral ID Status Reason Start Date Expiration Date V isits Requested Visits Authorized [id number] Closed Auto-Generate d Referral 07/21/2022 08/20/2023 1 1 [facility] Summary Purpose Family History No Family History [...] No February 22, 2022 12:30pm Power of Jacquard Loom Weaver No February 22 12:30pm Advance Directive Response Recorded Date/ Time Advance Directives No February 23 021 8:55am Living Will No September 05 9:14pm Power of Jacquard Loom Weaver No September 05 9:14pm Advance Directive Response Recorded Date/ Time Advance Directives No February 23 7:55am Living Will No November 18 1:54pm Power of Jacquard Loom Weaver No November 18, 2022 1:54pm Advance Directive Response Recorded Date/ Time Advance Directives No February 23 021 7:55am Living Will No January 21 12:06pm Power of Jacquard Loom Weaver No January 21, 2023 12:06pm Advance Directive Response Recorded Date/ Time Advance Directives No February 23 021 8:55am Living Will No March 22, 2023 6:38pm Power of Jacquard Loom Weaver No March 22 6:38pm Advance Directive Response Recorded Date/ Time Advance Directives No February 23 021 8:55am Living Will No April 09, 2023 1 0:50pm Power of Jacquard Loom Weaver No April 09, 2023 10:50pm Advance Directive Response Recorded Date/ Time Advance Directives No February 23 8:55am Living Will No April 10, 2023 3 :53am Power of Jacquard Loom Weaver No April 10, 2023 3:53am Advance Directive Response Recorded Date/ Time Advance Directives No February 23 8:55am Living Will No May 04, 2023 9 :16pm Power of Jacquard Loom Weaver No May 04, 2023 9:16pm Advance Directive Response Recorded Date/ Time Advance Directives No February 23 8:55am Living Will No May 24, 2023 9:36pm Power of Jacquard Loom Weaver No May 24 9:36pm Advance Directive Response Recorded Date/ Time Advance Directives No February 23 8:55am Living Will No July 29 2:27pm Power of Jacquard Loom Weaver No July 29 2:27pm Advance Directive Response Recorded Date/ Time Advance Directives No February 23 8:55am Living Will No August 23, 2023 12:07pm Power of Jacquard Loom Weaver No July 12:07pm Advance Directive Response Recorded Date/ Time Advance Directives No February 23 7:55am Living Will No October 10 023 4:19pm Power of Jacquard Loom Weaver No October 10, 2023 4:19pm Advance Directive Response Recorded Date/ Time Advance Directives No February 23 8:55am Living Will No January 24 5:38pm Power of Jacquard Loom Weaver No January 24, 2024 5:38pm Advance Directive Response Recorded Date/ Time Do you have a Healthcare Power of Jacquard Loom Weaver? No April 04, 2025 11:50am Advance Directives No July 2:01pm Advance Directive Response Recorded Date/ Time Do you have a Healthcare Power of Jacquard Loom Weaver? No April 11, 2025 10:12pm Do you have a Healthcare Power of Jacquard Loom Weaver? No April 04, 2025 11:50am Advance Directives No July 2:01pm Advance Directive Response Recorded Date/ Time Do you have a Healthcare Power of Jacquard Loom Weaver? No April 11, 2025 10:12pm Do you have a Healthcare Power of Jacquard Loom Weaver? No April 04, 2025 11:50am Do you have a Healthcare Power of Jacquard Loom Weaver? No April 26, 2025 1:50pm Advance Directives No July 2:01pm Advance Directive Response Recorded Date/ Time Do you have a Healthcare Power of Jacquard Loom Weaver? No April 11, 2025 10:12pm Do you have a Healthcare Power of Jacquard Loom Weaver? No April 04, 2025 11:50am Do you have a Healthcare Power of Jacquard Loom Weaver? No April 26, 2025 6:15pm Advance Directives No July 2:01pm Advance Directive Response Recorded Date/ Time Do you have a Healthcare Power of Jacquard Loom Weaver? No April 11, 2025 10:12pm Do you have a Healthcare Power of Jacquard Loom Weaver? No April 04, 2025 11:50am Do you have a Healthcare Power of Jacquard Loom Weaver? No April 26, 2025 6:15pm Do you have a Healthcare Power of Jacquard Loom Weaver? No May 24, 2025 11:48pm Advance Directives No July 2:01pm Advance Directive Response Recorded Date/ Time Do you have a Healthcare Power of Jacquard Loom Weaver? No April 11, 2025 10:12pm Do you have a Healthcare Power of Jacquard Loom Weaver? No April 04, 2025 11:50am Do you have a Healthcare Power of Jacquard Loom Weaver? No April 26, 2025 6:15pm Do you have a Healthcare Power of Jacquard Loom Weaver? No May 25, 2025 2:53am Advance Directives No July 2:01pm Advance Directive Response Recorded Date/ Time Do you have a Healthcare Power of Jacquard Loom Weaver? No April 11, 2025 10:12pm Do you have a Healthcare Power of Jacquard Loom Weaver? No July 17, 2025 10:29am Do you have a Healthcare Power of Jacquard Loom Weaver? No April 04, 2025 11:50am Do you have a Healthcare Power of Jacquard Loom Weaver? No April 26, 2025 6:15pm Do you have a Healthcare Power of Jacquard Loom Weaver? No May 25, 2025 2:53am Advance Directives No July 2:01pm Advance Directive Response Recorded Date/ Time Do you have a Healthcare Power of Jacquard Loom Weaver? No April 11, 2025 10:12pm Do you have a Healthcare Power of Jacquard Loom Weaver? No July 17, 2025 1:34pm Do you have a Healthcare Power of Jacquard Loom Weaver? No April 04, 2025 11:50am Do you have a Healthcare Power of Jacquard Loom Weaver? No April 26, 2025 6:15pm Do you have a Healthcare Power of Jacquard Loom Weaver? No May 25, 2025 2:53am Advance Directives [...] 2025 5:13p m Admitted to alcohol detoxification [facility] May 25, 2025 12:33am Chief Complaint Admit [...] 2025 5:13p m Admitted to alcohol detoxification [facility] May 25, 2025 12:33am [...] section and content) DATE CREATED AUTHOR 06/16/2021 [facility] DATE CREATED AUTHOR AUTHOR'S ORGANIZ ATION 04/24/2024 [facility] DATE CREATED AUTHOR AUTHOR'S ORGANIZ ATION 07/27/2025 [facility] Goals (unrecognized section and content) Goals [...] or prosecute any alcohol or drug abuse patient.[facility] the event this information is protected by the Federal Confidentiality of Alcohol and Drug Abuse Patient Records regulations: The Federal rules restrict any use of the information to criminally investigate or prosecute any alcohol or drug abuse patient.[facility] Campus[facility] the event this information is protected by the Federal Confidentiality of Alcohol and Drug Abuse Patient Records regulations: The Federal rules restrict any use of the information to criminally investigate or prosecute any alcohol or drug abuse patient.[facility] Reason for Visit (unrecogniz ed section and content) Reason Comments left hip pain X 3 days-cannot reca ll an injury Reason Comments Sinus Problem Nasal congestion, dr garland slight sore throat, nausea, cough, wheezing x 1 day Care Teams (unrecognized sec tion and content) Client Delivery Specialist Relationship Specialty Start Date End Date [...] Care Provider, Referring Provider Active Jim Manriquez FUEL EFFICIENT AUTOMOBILE DESIGNER, FUEL EFFICIENT AUTOMOBILE DESIGNER-C Attending Provider Active Team Status: Inactive Member [...] DO Primary Care Provider Active Jim Manriquez FUEL EFFICIENT [employer]OMOBILE DESIGNER, FUEL EFFICIENT AUTOMOBILE DESIGNER-C Attending Provider, Referring P roevert Active Team [...] Attending Provider, Referring Provider Active Jim Manriquez FUEL EFFICIENT AUTOMOBILE DESIGNER, FUEL EFFICIENT AUTOMOBILE DESIGNER-C Other Provider Active Team Status: Inactive Member [...] Dr. Jose Taylor MD Attending Provider Active Client Delivery Specialist Relationship Specialty Start Date End Date LaurenIhsan PCP - General Family Medicine 10/22/20 Client Delivery Specialist Relationship Specialty Start Date End Date Lauren, [...] St art: April 28, 2025 Dr. Humphrey Gracia DO Emergency Provider Active Start: April 28, [...] Star t: July 19, 2025 Dr. Canelo Myers MD Attending Provider Active Start: July 19, [...] BE BASED ON THE PRIMARY CLINICAL RECORDS. [employer] provides no warranty or guarantee of the accuracy or completeness of information in this document.
[2025-08-12] MEDS: 0.9% Saline Lock 10 ML Syringe IV (14:00)
[2025-08-12] MEDS: Potassium Chloride 10mEq/100mL 10 MEQ/100 ML IV.SOLN. 100 MEQ IV BOLUS ×4 (14:14→17:28)
[2025-08-12] MEDS: Insulin Lispro 100 UNIT in 0.9% Normal Saline (100mL Bag) 99 ML CONT INF (14:25)
[2025-08-12] MEDS: KCL 20MEQ in D5.45NS 20 MEQ/1,000 ML IV.SOLN. 250 MEQ IV ×2 (15:55→20:02)
[2025-08-12] MEDS: Ampicillin/Sulbactam 3 GM in 0.9% Normal Saline (100mL MB+) 100 ML IV (18:41)
[2025-08-12 20:12] LABS: Mucous, Urine 0 SEEN /hpf (<or=2+)
[2025-08-12 20:16] LABS: Color, Urine Yellow (Yellow); Glucose, Dipstick 50 mg/dl (Normal); Leukocyte Esterase-Dipstick Negative /ul (Negative); Nitrite-Dipstick Negative (Negative); Occult Blood-Urine 25 /ul (Negative); Protein-Dipstick 100 mg/dl (Negative); Specific Gravity, Urine 1.010 (1.002-1.030)
[2025-08-12 20:18] LABS: Urine Bilirubin Dipstick 1 mg/dL (Negative)
[2025-08-12 20:23] LABS: Ketone-Dipstick 150 mg/dl (Negative)
[2025-08-12 21:12] LABS: Anion Gap 15 (5-15); BUN 15 mg/dL (4-19); BUN/Creat Ratio 15.8 RATIO (10-20); Calcium,Total 7.3 mg/dL (7.6-11.0); Carbon Dioxide 26.8 mmol/L (21.0-32.0); Chloride 98 mmol/L (98-108); Estimated Creatinine Clearance 57.55 ml/min (50-250); Glucose 179 mg/dL (70-99); Potassium 3.4 mmol/L (3.3-5.1)
[2025-08-12 21:50] LABS: Red Blood Cells-Urine 5-10 SEEN /hpf (0-5); Squamous Epithelial Cells - UA 0-5 SEEN /hpf (5-10)
[2025-08-12] MEDS: Potassium Phosphate 45 MM in 0.9% Normal Saline (500mL Bag) 500 ML 85 MM IV (22:07)
[2025-08-13] VITALS (16 sets, daily range): BP systolic 139–164; BP diastolic 76–101; PULSE 89–110; RESP 11–18; TEMP 36.4–36.8; O2SAT 93–98; BMI 21.0
[2025-08-13] MEDS: KCL 20MEQ in D5.45NS 20 MEQ/1,000 ML IV.SOLN. 250 MEQ IV ×2 (00:13→04:10)
[2025-08-13] MEDS: Ampicillin/Sulbactam 3 GM in 0.9% Normal Saline (100mL MB+) 100 ML IV ×5 (00:47→23:54)
[2025-08-13 00:58] LABS: Anion Gap 12 (5-15); BETA-HYDROXYBUTYRATE 0.5 mmol/L (0.0-0.3); BUN 12 mg/dL (4-19); BUN/Creat Ratio 13.8 RATIO (10-20); Calcium,Total 7.2 mg/dL (7.6-11.0); Carbon Dioxide 27.4 mmol/L (21.0-32.0); Chloride 100 mmol/L (98-108); Estimated Creatinine Clearance 62.03 ml/min (50-250); Glucose 162 mg/dL (70-99); Potassium 3.9 mmol/L (3.3-5.1)
[2025-08-13 01:32] LABS: Ionized Calcium Order ORDER TUBE
[2025-08-13 04:46] LABS: Hematocrit 30.8 % (37-47); Hemoglobin 10.6 g/dL (12.0-15.0); Immature Granulocytes Count 0.030 X10^3/uL (0.0-0.0); Mean Corp Hgb Conc 34.4 g/dL (32-36); Mean Corpuscular Volume 100.7 fL (81-99); Mean Platelet Vol. 10.2 fl (6.2-12.0); NRBC Flagged by Analyzer 0 % (0-5); Platelet Count 112 K/mm3 (150-450); RBC Distribution Width CV 13.5 % (11.6-14.6); RBC Distribution Width SD 49.9 fl (35.1-43.9); Red Blood Count 3.06 M/mm3 (4.2-5.4); White Blood Count 6.4 K/mm3 (4.4-11.0)
[2025-08-13 05:18] LABS: BETA-HYDROXYBUTYRATE 0.2 mmol/L (0.0-0.3)
[2025-08-13 05:42] LABS: Anion Gap 12 (5-15); BUN 8 mg/dL (4-19); BUN/Creat Ratio 13.1 RATIO (10-20); Calcium,Total 6.7 mg/dL (7.6-11.0); Carbon Dioxide 26.5 mmol/L (21.0-32.0); Chloride 102 mmol/L (98-108); Estimated Creatinine Clearance 92.83 ml/min (50-250); Glucose 164 mg/dL (70-99); Potassium 4.0 mmol/L (3.3-5.1)
[2025-08-13 05:54] LABS: Magnesium 0.9 mg/dL (1.5-2.2)
[2025-08-13] MEDS: Magnesium Sulfate 2 GM in Dextrose 5%-Water (100mL Bag) 100 ML IV ×3 (07:01→16:11)
--- NOTE | 2025-08-13 08:23 | PN.HOSP_ITS ---
Reason for Visit Chief Complaint: Persistent vomiting for 24 hours, inadequate oral intake for 2 weeks Objective Data Objective Data Vital Signs: Vital Signs Temp Pulse Resp BP Pulse Ox O2 Del Method O2 Flow Rate 97.5 F L 106 H 16 149/92 H 98 Nasal Cannula 2 08/13/25 07:00 08/13/25 08:00 08/13/25 08:00 08/13/25 08:00 08/13/25 08:00 08/13/25 08:00 08/13/25 08:00 Oxygen Flow Rate (L/min) 2 Oxygen Delivery Method Nasal Cannula Weight: 122 lb 9.232 oz Body Mass Index (BMI) 21.0 Intake & Output: Intake and Output for Last 24 Hours 08/11/25 08/12/25 08/13/25 23:59 23:59 23:59 Intake Total 5041.39 / 5041.39 3580.24 / 3580.24 Output Total 0 / 0 900 / 900 Balance 5041.39 / 5041.39 2680.24 / 2680.24 Lab / Micro Data 08/13/25 04:30 08/13/25 04:30 Labs: Laboratory Results - last 24 hr 08/12/25 08:32: WBC 11.8 H, RBC 4.05 L, Hgb 14.1, Hct 41.3, MCV 102.0 H, MCH 34.8 H, MCHC 34.1, RDW Std Deviation 50.9 H, RDW Coeff of Braxton 13.6, Plt Count 181, MPV 10.1, Neut % (Auto) Not Reportable, Absolute Neuts (auto) 10.3 H, Absolute Lymphs (auto) 1.18, Total Counted 100, Neutrophils % (Manual) 87 H, L ymphocytes % (Manual) 10 L, Monocytes % (Manual) 3, Platelet Estimate ADEQUATE, RBC Morphology NORM C+C, Sodium 139, Potassium 3.1 L, Chloride 73 L*, Carbon Dioxide 17.4 L, Anion Gap 48 H, BUN 20 H, Creatinine 1.82 H, Est GFR (MDRD) Non- Af 34 L, BUN/Creatinine Ratio 10.8, Glucose 300 H, Calcium 9.2, Total Bilirubin 1.22, AST 408 H, ALT 108 H, Alkaline Phosphatase 135 H, Total Protein 8.3, Albumin 4.6, Globulin 3.6, Albumin/Globulin Ratio 1.3, Lipase 1130 H, Serum , Qual NEGATIVE 08/12/25 10:47: Lactic Acid 1.7, b-Hydroxybutyric mmol/L 14.0 H 08/12/25 12:57: POC Glucose 270 H 08/12/25 13:49: POC Glucose 232 H 08/12/25 14:56: POC Glucose 208 H 08/12/25 15:34: POC Glucose 158 H 08/12/25 16:28: POC Glucose 174 H 08/12/25 17:31: POC Glucose 198 H 08/12/25 18:34: POC Glucose 234 H 08/12/25 19:38: POC Glucose 211 H 08/12/25 20:00: Urine Color Yellow, Urine Clarity Clear, Urine pH 6.5, Ur Specific [place] 1.010, Urine Protein 100 H, Urine Glucose (UA) 50 H, Urine Ketones 150 A*, Urine Occult Blood 25 H, Urine Nitrite Negative, Urine Bilirubin 1 H, Urine Urobilinogen 4 H, Ur Leukocyte Esterase Negative, Urine RBC 5-10 SEEN, Urine WBC 0-5 SEEN, Ur Squamous Epith Cells 0-5 SEEN, Urine Bacteria 0 SEEN, Urine Mucus 0 SEEN 08/12/25 20:05: Sodium 140, Potassium 3.4, Chloride 98, Carbon Dioxide 26.8, Anion Gap 15, BUN 15, Creatinine 0.97, Estim Creat Clear Calc 57.55, Est GFR (MDRD) Non-Af 72, BUN/Creatinine Ratio 15.8, Glucose 179 H, Calcium 7.3 L, P hosphorus 0.8 L* 08/12/25 20:31: POC Glucose 173 H 08/12/25 21:35: POC Glucose 171 H 08/12/25 22:25: POC Glucose 186 H 08/12/25 23:48: POC Glucose 185 H 08/13/25 00:05: Sodium 139, Potassium 3.9, Chloride 100, Carbon Dioxide 27.4, Anion Gap 12, BUN 12, Creatinine 0.90, Estim Creat Clear Calc 62.03, Est GFR (MDRD) Non-Af 79, BUN/Creatinine Ratio 13.8, Glucose 162 H, Calcium 7.2 L, b- Hydroxybutyric mmol/L 0.5 H 08/13/25 00:32: POC Glucose 175 H 08/13/25 01:36: POC Glucose 156 H 08/13/25 02:41: POC Glucose 156 H 08/13/25 03:38: POC Glucose 177 H 08/13/25 04:30: WBC 6.4, RBC 3.06 L, Hgb 10.6 L, Hct 30.8 L, MCV 100.7 H, MCH 34.6 H, MCHC 34.4, RDW Std Deviation 49.9 H, RDW Coeff of Braxton 13.5, Plt Count 112 L, MPV 10.2, Immature Gran % (Auto) 0.500, Neut % (Auto) 80.1 H, Lymph % (Auto) 13.0 L, [place] % (Auto) 6.0, Eos % (Auto) 0.2, Baso % (Auto) 0.2, Absolute Neuts (auto) 5.1, Absolute Lymphs (auto) 0.83, Nucleated RBC % 0, Sodium 140, Potassium 4.0, Chloride 102, Carbon Dioxide 26.5, Anion Gap 12, BUN 8, C reatinine 0.64 L, Estim Creat Clear Calc 92.83, Est GFR (MDRD) Non-Af 109, BUN/Creatinine Ratio 13.1, Glucose 164 H, Hemoglobin A1c 5.2, Calcium 6.7 L, Phosphorus 3.8, Magnesium 0.9 L*, b-Hydroxybutyric mmol/L 0.2 08/13/25 04:37: POC Glucose 147 H 08/13/25 05:28: POC Glucose 161 H 08/13/25 06:35: POC Glucose 171 H 08/13/25 07:44: POC Glucose 165 H Micro: Microbiology 08/12/25 20:30 Mucosa - Nasopharyngeal Coronavirus COVID-19 PCR - Final 08/12/25 20:00 Urine, Clean Catch Streptococcus pneumoniae Antigen (M - Final 08/12/25 13:40 Nasal Secretion MRSA (PCR) - Final 08/12/25 08:32 Swab (Method) Streptococcus pyogenes (PCR) - Final 08/12/25 08:32 Mucosa - Nose SARS-CoV-2, Influenza & RSV (PCR) - Final ABG Data ABG results: ABG 08/12/25 08/12/25 10:58 12:45 Specimen Type ART GELACIO Sample Site Not entered Not entered pH 7.56 H Bicarbonate Actual 22.2 Total CO2 23 Base Excess 0 O2 Saturation 95 ABG pCO2 24.6 L ABG pO2 63 L VBG pH 7.49 H VBG pO2 52 H VBG HCO3 25 VBG Total CO2 26 VBG O2 Sat (Calc) 90 H VBG Base Excess 2 POC Mix VBG pCO2 Pt Tmp 32.2 L O2 Delivery Device Not entered Not entered Vent Mode Not entered Radiography Diagnostic Testing: Radiology Impression Abdomen/Pelvis CT 08/12/25 10:43 IMPRESSION: Fatty liver. Pancreatitis without phlegmon or pseudocyst. Reading Location: [facility] Physical Exam Narrative Seen and examined. Patient is still nauseated, gagging on water, with sore throat. No fever. Mild sinus tachycardia. Anion gap closed x 2 but she is not able to have oral intake. Abdominal pain and epigastric region/RUQ Physical exam General: Alert, Oriented x3, Cooperative HEENT: Mild tenderness over throat region. Atraumatic, PERRLA, EOMI, Normocephalic. Oral: Oral mucosa very dry. Tonsils enlarged. No oral ulcer. Neck: Supple, No JVD, Negative Carotid Bruits Chest wall/Lungs: Air entry diminished in bilateral lung bases. No crepitation/rhonchi Cardiovascular: Regular rate and rhythm, Normal S1,S2, No M/G/R Abdomen: Bowel Sounds Present, Soft, tenderness over right upper quadrant/epigastric region : No dysuria. No renal angle tenderness. No suprapubic tenderness. Extremities: No edema, Capillary Refill Less than 3 Seconds Skin: No rashes, No breakdown Musculoskeletal: No Tenderness to Palpation of Joints or Extremities. ROM intact Neurological: Cranial nerves II-XII grossly intact, DTR 2+/4. No acute focal neurological deficit. Psych/Mental Status: Flat affect Assessment & Plan Assessment/Plan (1) DKA (diabetic ketoacidoses): PLAN: Plan This is 50-year-old female is being admitted for persistent vomiting for more than 24 hours along with decreased oral intake, abdominal pain. 1. DKA with history of type 2 diabetes mellitus with severe electrolyte abnormality: Patient is being admitted in ICU. Glucoses around 300 not very high because patient is on Jardiance, glimepiride and metformin. Needs to be aggressive rehydration, 2 L normal saline, 1 L/h and then D5 half NS plus KCl at 250 mL for another 2 L. Reevaluate fluid status afterwards with intake and output and IV fluid according. Insulin drip after 2 hours of IV fluid rehydration. Follow DKA protocol 08/13: Anion gap closed x 2. Sodium potassium and chloride are in normal range. Hypomagnesemia and hypophosphatemia. Magnesium and phosphorus IV replacement. Patient is still very symptomatic with abdominal pain, nausea and sore throat therefore continue IV fluid D5 half NS plus KCl at 150 mL/h and slow IV insulin drip. Speech therapy evaluation. 2. Complex acid-base disorder, high anion gap metabolic acidosis and severe metabolic alkalosis with hypokalemia,: Patient has high anion gap metabolic acidosis, metabolic alkalosis from persistent vomiting, hyperchloremic HCl rich fluid and hypokalemia: BMP shows chloride very low 73 probably due to persistent HCl rich vomiting with reflex physiologic bicarb conservation, 17.4, anion gap 48. IV fluid normal saline and IV KCl ordered. Insulin drip. Sodium is normal. 08/14: Metabolic alkalosis. High anion gap metabolic acidosis. Beta- hydroxybutyrate normal. Anion gap closed x 2. Repeat bicarb is 26.5. Chloride 102. 3. Acute on chronic recurrent alcoholic pancreatitis: Patient has right upper quadrant/epigastric tenderness and elevated lipase therefore meets criteria for acute pancreatitis. Last admitted in June 2025 for similar acute on chronic pancreatitis. IV fluid normal saline. Continue NPO. 08/13: CT scan shows moderate to severe fatty infiltration of the liver. No focal mass. Pancreas mild inflammation adjacent to the tail of pancreas. No pancreatic pseudocyst/phlegmon or evidence of necrosis. Biliary system negative. Status postcholecystectomy. 4. LUI due to severe dehydration and DKA, prerenal in etiology: BUN/creatinine ratio 10.8. BUN 20, creatinine 1.82. 08/13: BUN/creatinine 8/0.64. LUI resolved. 5. Sore throat possible acute tonsillitis: Triple PCR for SARS-CoV-2, flu and RSV are negative. Strep throat negative. Started on IV Unasyn. Cepacol conservative management 6. Acute on chronic alcoholic hepatitis: AST 408, ALT 208, total bili 1.22. Icterus positive. Monitor liver chemistry 08/13: Repeat liver chemistry ordered 7. Chronic alcohol use disorder: She stopped drinking alcohol about 2 weeks ago. Currently not having any acute alcohol withdrawal symptoms like tremors, disorientation delirium. CIWA monitor. 8. COPD: Currently not in exacerbation. Currently smokes about half pack per day. Advised quitting smoking. 9. Dyslipidemia: On statin. Hold it for now 10. Depression with anxiety: Hold oral medications. Patient on citalopram bupropion and buspirone 11. Severe malnutrition due to chronic alcohol use and inadequate oral intake. It is evidenced by: 10% unintentional weight loss. 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 Current 100 81K. Patient also has history of anemia and currently H&H 14.1/41.3 probably due to hemoconcentration. Enoxaparin 40 mg subcu daily Living will/advanced directive/end of life care: Patient does not have living will or advanced directive. After discussion of benefits/risks procedures involved with full code, DNR CC arrest and DNR CC, the patient opted for full code. Patient does want artificial life support including intubation, tube feed, ventilator and/chest compression, central venous catheter, vasopressor and DC shock if needed Total time spent in [id number] encounter in discussion of advanced directive 17 minutes. Microbiology Past 72 Hours 08/12/25 08:32 Swab (Method) Streptococcus pyogenes (PCR) - Final 08/12/25 08:32 Mucosa - Nose SARS-CoV-2, Influenza & RSV (PCR) - Final Laboratory Results 08/12/25 08:32: WBC 11.8 H, RBC 4.05 L, Hgb 14.1, Hct 41.3, MCV 102.0 H, MCH 34.8 H, MCHC 34.1, RDW Std Deviation 50.9 H, RDW Coeff of Braxton 13.6, Plt Count 181, MPV 10.1, Neut % (Auto) Not Reportable, Absolute Neuts (auto) 10.3 H, Absolute Lymphs (auto) 1.18, Total Counted 100, Neutrophils % (Manual) 87 H, L ymphocytes % (Manual) 10 L, Monocytes % (Manual) 3, Platelet Estimate ADEQUATE, RBC Morphology NORM C+C, Sodium 139, Potassium 3.1 L, Chloride 73 L*, Carbon Dioxide 17.4 L, Anion Gap 48 H, BUN 20 H, Creatinine 1.82 H, Est GFR (MDRD) Non- Af 34 L, BUN/Creatinine Ratio 10.8, Glucose 300 H, Calcium 9.2, Total Bilirubin 1.22, AST 408 H, ALT 108 H, Alkaline Phosphatase 135 H, Total Protein 8.3, Albumin 4.6, Globulin 3.6, Albumin/Globulin Ratio 1.3, Lipase 1130 H, Serum , Qual NEGATIVE 08/12/25 10:47: Lactic Acid 1.7, b-Hydroxybutyric mmol/L 14.0 H 08/12/25 10:58: Specimen Type ART, Sample Site Not entered, pH 7.56 H, Bicarbonate Actual 22.2, Total CO2 23, Base Excess 0, O2 Saturation 95, ABG pCO2 24.6 L, ABG pO2 63 L, O2 Delivery Device Not entered, Vent Mode Not entered 08/12/25 12:45: Specimen Type GELACIO, Sample Site Not entered, VBG pH 7.49 H, VBG pO2 52 H, VBG HCO3 25, VBG Total CO2 26, VBG O2 Sat (Calc) 90 H, VBG Base Excess 2, POC Mix VBG pCO2 Pt Tmp 32.2 L, O2 Delivery Device Not entered 08/12/25 12:57: POC Glucose 270 H Charges/Coding Visit Charges Inpatient E&M: 16406 Subs Hosp L3
[2025-08-13] MEDS: KCL 20MEQ in D5.45NS 20 MEQ/1,000 ML IV.SOLN. 150 MEQ IV (09:36)
--- NOTE | 2025-08-13 10:09 | CASEMGMT ---
Social Work- SW met with pt to discuss self-pay status. Pt started [employer] process with [employer] on 07/18/25. Pt reports she received a letter that she needs to turn in pay stubs to complete application. Pt reports that she does not have pay stubs, but did not reply to letter as she was sick. Pt reports that she will follow up once home. Pt denies needing assistance from [employer] at this time. Pt reports that she has no other needs or resources desired. SW remains available to follow. PRESTON Moise
--- NOTE | 2025-08-13 10:36 | CASEMGMT ---
Readmission Note: Date of Previous Admission: 07/17/25 ? 07/20/25 Reason for Previous Admission: Alcohol-induced pancreatitis Pt was discharged home with a referral to [facility] for counseling, two new medications prescribed, and instructions to follow up with PCP. Current Encounter: foot miter operator entered patient?s room. Patient noted sitting up in chair, in no acute distress. Patient reports she picked up her prescribed medications and followed up with her primary care provider as instructed. Regarding the referral to [facility] for counseling, patient states: I went to [facility] one time and was supposed to follow up again to determine what my plan would be, but my son had a stroke that day and then I got sick, so I haven?t been able to follow up. Patient reports she intends to re-engage with [facility] to follow up with an outpatient substance use treatment facility. DC Plan: Continue to support patient in re-engagement with outpatient substance use services. Encourage ongoing medication adherence and PCP follow-up. Pt denies additional needs or questions at this time.
[2025-08-13 11:00] LABS: AST(SGOT) 158 U/L (<=31); Alanine Aminotransfer ALT/SGPT 49 U/L (<=34); Albumin, Serum 3.2 g/dL (3.5-5.0); Alkaline Phosphatase 102 U/L (35-104); Bilirubin, Direct 0.43 mg/dL (0.00-0.30); Globulin 2.4 g/dL (2.2-4.2)
[2025-08-13] MEDS: Insulin Glargine-YFGN 100 UNIT/ML Pen SC (11:52)
[2025-08-13] MEDS: Lidocaine 2% Viscous15 ML UDC 30 ML PO (12:49)
[2025-08-13 14:38] LABS: Magnesium 1.0 mg/dL (1.5-2.2)
--- NOTE | 2025-08-13 15:28 | PCM.HOSP.N ---
Hospitalist Note Blood culture prelim positive GNR. Patient leukocytosis improved and no fever. No tachycardia. Continue IV Unasyn.
[2025-08-13] MEDS: 0.9% Normal Saline (250mL Bag) 250 ML 15 ML IV ×2 (16:11→17:22)
[2025-08-13] MEDS: 0.9% Saline Lock 10 ML Syringe IV ×3 (17:22→23:54)
[2025-08-14] VITALS (7 sets, daily range): BP systolic 140–170; BP diastolic 84–93; PULSE 85–99; RESP 16–18; TEMP 36.6–37.1; O2SAT 92–98; BMI 20.8
[2025-08-14] MEDS: Ampicillin/Sulbactam 3 GM in 0.9% Normal Saline (100mL MB+) 100 ML IV ×4 (05:42→23:46)
[2025-08-14 06:42] LABS: Magnesium 1.9 mg/dL (1.5-2.2)
[2025-08-14 06:44] LABS: AST(SGOT) 110 U/L (<=31); Alanine Aminotransfer ALT/SGPT 40 U/L (<=34); Albumin, Serum 3.1 g/dL (3.5-5.0); Alkaline Phosphatase 229 U/L (35-104); Anion Gap 13 (5-15); BUN 3 mg/dL (4-19); BUN/Creat Ratio 7.8 RATIO (10-20); Bilirubin, Direct 0.66 mg/dL (0.00-0.30); Calcium,Total 7.8 mg/dL (7.6-11.0); Carbon Dioxide 30.8 mmol/L (21.0-32.0); Chloride 96 mmol/L (98-108); Estimated Creatinine Clearance 135.02 ml/min (50-250); Globulin 2.6 g/dL (2.2-4.2); Glucose 131 mg/dL (70-99); Potassium 3.0 mmol/L (3.3-5.1)
[2025-08-14] MEDS: Potassium Chloride 10mEq/100mL 10 MEQ/100 ML IV.SOLN. 100 MEQ IV BOLUS ×4 (09:57→14:58)
[2025-08-14] MEDS: 0.9% Saline Lock 10 ML Syringe IV ×2 (09:57→20:52)
--- NOTE | 2025-08-14 10:04 | CASEMGMT ---
Social Work SW met w/pt to inquire if assistance needed in making an appt w/ [facility]. Pt states that she plans to follow up with [facility]. She did go in once already to see Vickey, planned to follow up and then her son had a seizure and she got sick. She does plan to follow up on her own, does not need assist to make an appt. Pt states she is likely going to do their intensive outpt program, three days per week, three hours per day. She also plans to follow up w/[facility] for Medicaid. SW remains available for any additional social service needs. ZANA Walker
--- NOTE | 2025-08-14 10:20 | PCM.CONS.GEN ---
Assessment & Plan Assessment/Plan (1) DKA (diabetic ketoacidoses): (2) Acute on chronic pancreatitis: (3) Bacteremia due to Gram-negative bacteria: PLAN: Suspect GI source. Cont unasyn. Feeling better, wbc normal. Will follow, thank you HPI Consult Data Date of Consult: 08/14/25 HPI Narrative Reason for Consultation: bacteremia HPI Narrative: JOSEPH RINCON, is a 50 F with etoh abuse and pancreatitis, presented 08/12 with one day of intractable n/v, mild chills, some low grade epigastric abd pain/cramping. No dysuria, no diarrhea, no dental issues, no cough or dyspnea. Came to ED, admitted with pancreatitis, now on unasyn and feeling better. Full ROS performed and neg except as noted above. [facility] Medical History Admitted to alcohol detoxification center Pancreatitis Hypokalemia Nausea & vomiting Intractable abdominal pain Strain of left foot Plantar fasciitis of left foot Acute otitis media, right Contact with or exposure to other viral diseases URI (upper respiratory infection) Alcohol abuse GERD (gastroesophageal reflux disease) CPAP (continuous positive airway pressure) dependence Smoker COPD (chronic obstructive pulmonary disease) Myocardial infarct Seizures History of left heart catheterization (LHC) (~11/19/22) Sleep apnea Pancreatitis Acute lumbar myofascial strain Strain of left hip Depression Anxiety Diabetes HTN (hypertension) Type 2 diabetes mellitus Home Medications ?Medication ?Instructions ?Recorded ?Last Taken ?Type metformin 500 mg tablet 500 ea PO BID DIABETES 10/31/22 08/11/25 History aspirin 81 mg chewable tablet 81 mg PO DAILY@0800 #30 tabs 11/19/22 08/11/25 Rx bupropion HCl 150 mg 24 hr tablet, 150 mg PO DAILY 01/21/23 08/11/25 History extended release montelukast 10 mg tablet 10 mg PO DAILY 04/09/23 08/11/25 History (Singulair) pantoprazole 40 mg tablet,delayed 40 mg PO BID 05/04/23 08/11/25 History release cholecalciferol (vitamin D3) 50 50 mcg PO DAILY 08/25/23 08/11/25 History mcg (2,000 unit) capsule albuterol sulfate 90 mcg/actuation 2 puff inhalation Q6H PRN 04/27/24 08/12/25 Rx aerosol inhaler shortness of breath or wheezing #8.5 grams empagliflozin 25 mg tablet 25 mg PO DAILY 11/12/24 08/11/25 History (Jardiance) metoprolol succinate 25 mg 25 mg PO DAILY 11/12/24 08/11/25 History tablet,extended release 24 hr amlodipine 5 mg tablet 5 mg PO DAILY 04/04/25 08/11/25 History buspirone 5 mg tablet 5 mg PO TID PRN anxiety 04/04/25 08/11/25 History hydroxyzine HCl 10 mg tablet 10 mg PO TID PRN PRN anxiety 04/04/25 Unknown History levocetirizine 5 mg tablet 5 mg PO DAILY 04/11/25 08/11/25 History lisinopril 40 mg tablet 40 mg PO DAILY 04/11/25 08/11/25 History budesonide-formoterol HFA 160 2 puff inhalation BID SOB 04/26/25 08/11/25 History mcg-4.5 mcg/actuation aerosol inhaler glimepiride 4 mg tablet 4 mg PO DAILY #30 tabs 05/06/25 08/11/25 Rx atorvastatin 40 mg tablet 40 mg PO QHS 07/17/25 08/11/25 History fluoxetine 40 mg capsule 40 mg PO DAILY 07/17/25 08/11/25 History lorazepam 1 mg tablet 1 mg PO BID 08/12/25 08/11/25 History naltrexone 50 mg tablet 50 mg PO DAILY 08/12/25 08/11/25 History Allergy/AdvReac Type Severity Reaction Status Date / Time No Known Allergies Allergy Verified 08/12/25 08:21 Family History Grandfather CVA (cerebral vascular accident) Diabetes Mother Cancer Father Hypertension Grandmother Hypertension Diabetes Surgical History History of cholecystectomy H/O tooth extraction plantar fasciitis release Social History household members: spouse and children housing: house pets and animals: Yes Smoking Status: Light Smoker (<10/day) alcohol intake: current alcohol intake frequency: 3 or more drinks per day Alcohol type: hard liquor details: At least 1/5 vodka daily, recently increased EtOH intake. substance use type: does not use Physical Exam Const alert, oriented x3 and no apparent distress General Appearance: cooperative HEENT normocephalic and head/scalp atraumatic Eyes PERRL and EOMs intact bilaterally Neck supple and No nodes Resp normal air movement and clear to auscultation bilaterally Cardio regular rate and regular rhythm GI soft to palpation and non-distended Palpation: tender Extremity General Extremity: Negative for edema Skin no rashes or lesions noted Neuro CN's II-XII intact bilaterally Medical Records Data Medical Nutrition Assessment Dietitian: Malnutrition Criteria Met Start: 08/13/25 09:43 Freq: Status: Active Protocol: Document 08/13/25 09:43 [facility] (Rec: 08/13/25 09:43 [facility] [id number]) Nutrition Malnutrition Evidence of Yes Malnutrition Exists Clinical Problem Acute Disease or Injury Related Malnutrition Etiology 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 Status Active Problem Recommendation Dietitian As medically able, rec [id number] to liberal CHO Controlled Recommendations/ diet d/t signs and symptoms of malnutrition Changes As medically able, rec glucerna shake 4x/day w/ medpass for increased nutrition if consumed. Lab / Micro Data Attestation: I reviewed the patient's lab results. 08/13/25 04:30 08/14/25 05:08 Labs: Laboratory Results - last 24 hr 08/13/25 04:30: Total Bilirubin 0.72, Direct Bilirubin 0.43 H, AST 158 H, ALT 49 H, Alkaline Phosphatase 102, Total Protein 5.6 L, Albumin 3.2 L, Globulin 2.4 08/13/25 10:50: POC Glucose 78 08/13/25 11:51: POC Glucose 82 08/13/25 13:08: Magnesium 1.0 L 08/13/25 14:00: POC Glucose 130 H 08/13/25 16:29: POC Glucose 110 H 08/13/25 21:53: POC Glucose 130 H 08/14/25 05:08: Sodium 140, Potassium 3.0 L, Chloride 96 L, Carbon Dioxide 30.8, Anion Gap 13, BUN 3 L, Creatinine 0.44 L, Estim Creat Clear Calc 135.02, Est GFR (MDRD) Non-Af 119, BUN/Creatinine Ratio 7.8 L, Glucose 131 H, Calcium 7.8, Magnesium 1.9, Total Bilirubin 1.04, Direct Bilirubin 0.66 H, AST 110 H, ALT 40 H, Alkaline Phosphatase 229 H, Total Protein 5.6 L, Albumin 3.1 L, Globulin 2.6 08/14/25 06:39: POC Glucose 138 H Micro: Microbiology 08/12/25 20:00 Urine, Clean Catch Urine Culture - Final Mixed Gram Pos & Gram Neg Org 08/12/25 20:00 Urine, Clean Catch Streptococcus pneumoniae Antigen (M - Final 08/12/25 13:10 Blood Culture (Wb) - Anticubital Right Blood Culture - Preliminary Gram negative ermias
[2025-08-14] MEDS: Insulin Glargine-YFGN 100 UNIT/ML Pen SC (11:22)
--- NOTE | 2025-08-14 14:00 | PCM.PN.HOSP ---
Reason for Visit Chief Complaint: Persistent vomiting for 24 hours, inadequate oral intake for 2 weeks Objective Data Objective Data Vital Signs: Vital Signs Temp Pulse Resp BP Pulse Ox O2 Del Method O2 Flow Rate 98.0 F 91 16 155/93 H 92 Room Air 2 08/14/25 13:40 08/14/25 13:40 08/14/25 13:40 08/14/25 13:40 08/14/25 13:40 08/14/25 13:40 08/13/25 09:00 Oxygen Flow Rate (L/min) 2 Oxygen Delivery Method Room Air Weight: 121 lb 7.595 oz Body Mass Index (BMI) 20.8 Intake & Output: Intake and Output for Last 24 Hours 08/12/25 08/13/25 08/14/25 23:59 23:59 23:59 Intake Total 5041.39 / 5041.39 5843.92 / 5843.92 500 / 500 Output Total 0 / 0 1700 / 1700 Balance 5041.39 / 5041.39 4143.92 / 4143.92 500 / 500 Medical Nutrition Assessment Dietitian: Malnutrition Criteria Met Start: 08/13/25 09:43 Freq: Status: Active Protocol: Document 08/13/25 09:43 SLA (Rec: 08/13/25 09:43 SLA [id number]) Nutrition Malnutrition Evidence of Yes Malnutrition Exists Clinical Problem Acute Disease or Injury Related Malnutrition Etiology Pt with gi dysfunction w/ n/v costuming supervisor and po intake inadequate to meet estimated nutritional needs Signs/Symptoms evidenced by n/v costuming supervisor x 24 hours and po intake meeting < 75% of est nutritional needs x 2 wks costuming supervisor, also w/ 18.3 % unplanned wt loss x 9 mo and 8.1% unplanned wt loss x < 1 month costuming supervisor - sig for malnutrition. Status Active Problem Recommendation Dietitian As medically able, rec [id number] to liberal CHO Controlled Recommendations/ diet d/t signs and symptoms of malnutrition Changes As medically able, rec glucerna shake 4x/day w/ medpass for increased nutrition if consumed. Lab / Micro Data 08/13/25 04:30 08/14/25 05:08 Labs: Laboratory Results - last 24 hr 08/13/25 13:08: Magnesium 1.0 L 08/13/25 14:00: POC Glucose 130 H 08/13/25 16:29: POC Glucose 110 H 08/13/25 21:53: POC Glucose 130 H 08/14/25 05:08: Sodium 140, Potassium 3.0 L, Chloride 96 L, Carbon Dioxide 30.8, Anion Gap 13, BUN 3 L, Creatinine 0.44 L, Estim Creat Clear Calc 135.02, Est GFR (MDRD) Non-Af 119, BUN/Creatinine Ratio 7.8 L, Glucose 131 H, Calcium 7.8, Magnesium 1.9, Total Bilirubin 1.04, Direct Bilirubin 0.66 H, AST 110 H, ALT 40 H, Alkaline Phosphatase 229 H, Total Protein 5.6 L, Albumin 3.1 L, Globulin 2.6 08/14/25 06:39: POC Glucose 138 H 08/14/25 11:21: POC Glucose 223 H Micro: Microbiology 08/12/25 13:10 Blood Culture (Wb) - Anticubital Right Blood Culture - Preliminary Pasteurella multocida 08/12/25 20:00 Urine, Clean Catch Urine Culture - Final Mixed Gram Pos & Gram Neg Org 08/12/25 20:00 Urine, Clean Catch Streptococcus pneumoniae Antigen (M - Final 08/12/25 20:30 Mucosa - Nasopharyngeal Coronavirus COVID-19 PCR - Final 08/12/25 13:40 Nasal Secretion MRSA (PCR) - Final 08/12/25 08:32 Swab (Method) Streptococcus pyogenes (PCR) - Final 08/12/25 08:32 Mucosa - Nose SARS-CoV-2, Influenza & RSV (PCR) - Final Physical Exam Narrative Seen and examined. Patient complain of sore throat. She is not vomiting. Plan for MBS swallow test tomorrow No fever. Still complain of abdominal pain and epigastric region/RUQ Physical exam General: Alert, Oriented x3, Cooperative HEENT: Mild tenderness over throat region. Atraumatic, PERRLA, EOMI, Normocephalic. Oral: Oral mucosa very dry. Tonsils enlarged. No oral ulcer. Neck: Supple, No JVD, Negative Carotid Bruits Chest wall/Lungs: Air entry diminished in bilateral lung bases. No crepitation/rhonchi Cardiovascular: Regular rate and rhythm, Normal S1,S2, No M/G/R Abdomen: Bowel Sounds Present, Soft, mild tenderness over right upper quadrant/epigastric region : No dysuria. No renal angle tenderness. No suprapubic tenderness. Extremities: No edema, Capillary Refill Less than 3 Seconds Skin: No rashes, No breakdown Musculoskeletal: No Tenderness to Palpation of Joints or Extremities. ROM intact Neurological: Cranial nerves II-XII grossly intact, DTR 2+/4. No acute focal neurological deficit. Psych/Mental Status: Flat affect Assessment & Plan Assessment/Plan (1) DKA (diabetic ketoacidoses): PLAN: Plan This is 50-year-old female is being admitted for persistent vomiting for more than 24 hours along with decreased oral intake, abdominal pain. 1. DKA with history of type 2 diabetes mellitus with severe electrolyte abnormality: Patient is being admitted in ICU. Glucoses around 300 not very high because patient is on Jardiance, glimepiride and metformin. Needs to be aggressive rehydration, 2 L normal saline, 1 L/h and then D5 half NS plus KCl at 250 mL for another 2 L. Reevaluate fluid status afterwards with intake and output and IV fluid according. Insulin drip after 2 hours of IV fluid rehydration. Follow DKA protocol 08/13: Anion gap closed x 2. Sodium potassium and chloride are in normal range. Hypomagnesemia and hypophosphatemia. Magnesium and phosphorus IV replacement. Patient is still very symptomatic with abdominal pain, nausea and sore throat therefore continue IV fluid D5 half NS plus KCl at 150 mL/h and slow IV insulin drip. Speech therapy evaluation. 08/14: Glucose is 133- 223. Hypokalemia, potassium replaced. Hypomagnesemia corrected. D5 half NS +20 mL KCl. Lantus dose increased. Patient does not have good oral intake because of sore throat therefore IV fluid ordered. Oropharyngeal dysphagia. Gram-negative ermias bacteremia: Blood culture prelim positive gram-negative rods. Identified as Pasteurella multocida, beta-lactamase negative. Continue IV Unasyn. ID consult reviewed 2. Complex acid-base disorder, high anion gap metabolic acidosis and severe metabolic alkalosis with hypokalemia,: Patient has high anion gap metabolic acidosis, metabolic alkalosis from persistent vomiting, hyperchloremic HCl rich fluid and hypokalemia: BMP shows chloride very low 73 probably due to persistent HCl rich vomiting with reflex physiologic bicarb conservation, 17.4, anion gap 48. IV fluid normal saline and IV KCl ordered. Insulin drip. Sodium is normal. 08/13: Metabolic alkalosis. High anion gap metabolic acidosis. Beta-hydroxybutyrate normal. Anion gap closed x 2. Repeat bicarb is 26.5. Chloride 102. 3. Acute on chronic recurrent alcoholic pancreatitis: Patient has right upper quadrant/epigastric tenderness and elevated lipase therefore meets criteria for acute pancreatitis. Last admitted in June 2025 for similar acute on chronic pancreatitis. IV fluid normal saline. Continue NPO. 08/13: CT scan shows moderate to severe fatty infiltration of the liver. No focal mass. Pancreas mild inflammation adjacent to the tail of pancreas. No pancreatic pseudocyst/phlegmon or evidence of necrosis. Biliary system negative. Status postcholecystectomy. 4. LUI due to severe dehydration and DKA, prerenal in etiology: BUN/creatinine ratio 10.8. BUN 20, creatinine 1.82. 08/13: BUN/creatinine 8/0.64. LUI resolved. 5. Sore throat possible acute tonsillitis: Triple PCR for SARS-CoV-2, flu and RSV are negative. Strep throat negative. Started on IV Unasyn. Cepacol conservative management Oropharyngeal dysphagia due to sore throat: BMX ordered. Modified barium swallow ordered for tomorrow AM. 6. Acute on chronic alcoholic hepatitis: AST 408, ALT 208, total bili 1.22. Icterus positive. Monitor liver chemistry 08/13: Repeat liver chemistry ordered 7. Chronic alcohol use disorder: She stopped drinking alcohol about 2 weeks ago. Currently not having any acute alcohol withdrawal symptoms like tremors, disorientation delirium. CIWA monitor. 8. COPD: Currently not in exacerbation. Currently smokes about half pack per day. Advised quitting smoking. 9. Dyslipidemia: On statin. Hold it for now 10. Depression with anxiety: Hold oral medications. Patient on citalopram bupropion and buspirone 11. Severe malnutrition due to chronic alcohol use and inadequate oral intake. It is evidenced by: 10% unintentional weight loss. Sock Ironer consult DVT prophylaxis: Patient has intermittent thrombocytopenia during previous hospitalization probably due to alcohol. Current 100 81K. Patient also has history of anemia and currently H&H 14.1/41.3 probably due to hemoconcentration. Enoxaparin 40 mg subcu daily Living will/advanced directive/end of life care: Patient does not have living will or advanced directive. After discussion of benefits/risks procedures involved with full code, DNR CC arrest and DNR CC, the patient opted for full code. Patient does want artificial life support including intubation, tube feed, ventilator and/chest compression, central venous catheter, vasopressor and DC shock if needed Total time spent in [id number] encounter in discussion of advanced directive 17 minutes. Microbiology Past 72 Hours 08/12/25 13:10 Blood Culture (Wb) - Anticubital Right Blood Culture - Preliminary Pasteurella multocida 08/12/25 20:00 Urine, Clean Catch Urine Culture - Final Mixed Gram Pos & Gram Neg Org 08/12/25 20:00 Urine, Clean Catch Streptococcus pneumoniae Antigen (M - Final 08/12/25 20:30 Mucosa - Nasopharyngeal Coronavirus COVID-19 PCR - Final 08/12/25 13:40 Nasal Secretion MRSA (PCR) - Final 08/12/25 08:32 Swab (Method) Streptococcus pyogenes (PCR) - Final 08/12/25 08:32 Mucosa - Nose SARS-CoV-2, Influenza & RSV (PCR) - Final Laboratory Results 08/13/25 13:08: Magnesium 1.0 L 08/13/25 14:00: POC Glucose 130 H 08/13/25 16:29: POC Glucose 110 H 08/13/25 21:53: POC Glucose 130 H 08/14/25 05:08: Sodium 140, Potassium 3.0 L, Chloride 96 L, Carbon Dioxide 30.8, Anion Gap 13, BUN 3 L, Creatinine 0.44 L, Estim Creat Clear Calc 135.02, Est GFR (MDRD) Non-Af 119, BUN/Creatinine Ratio 7.8 L, Glucose 131 H, Calcium 7.8, Magnesium 1.9, Total Bilirubin 1.04, Direct Bilirubin 0.66 H, AST 110 H, ALT 40 H, Alkaline Phosphatase 229 H, Total Protein 5.6 L, Albumin 3.1 L, Globulin 2.6 08/14/25 06:39: POC Glucose 138 H 08/14/25 11:21: POC Glucose 223 H Charges/Coding Visit Charges Inpatient E&M: 95753 Subs Hosp L2
[2025-08-14] MEDS: KCL 20MEQ in D5.45NS 20 MEQ/1,000 ML IV.SOLN. 50 MEQ IV (16:15)
[2025-08-14] MEDS: Budesonide Respules 0.5 MG/2 ML AMPUL.NEB. INHALATION (19:42)
[2025-08-14] MEDS: Albuterol 2.5 MG/3 ML VIAL.NEB. INHALATION (19:42)
[2025-08-15] VITALS (11 sets, daily range): BP systolic 123–151; BP diastolic 80–91; PULSE 74–103; RESP 14–19; TEMP 36.6–37; O2SAT 95–100; BMI 20.3
[2025-08-15] MEDS: 0.9% Saline Lock 10 ML Syringe IV ×3 (01:43→10:59)
[2025-08-15] MEDS: Ampicillin/Sulbactam 3 GM in 0.9% Normal Saline (100mL MB+) 100 ML IV ×2 (06:35→11:02)
[2025-08-15 06:41] LABS: AST(SGOT) 111 U/L (<=31); Alanine Aminotransfer ALT/SGPT 37 U/L (<=34); Albumin, Serum 3.1 g/dL (3.5-5.0); Alkaline Phosphatase 344 U/L (35-104); Anion Gap 11 (5-15); BUN 4 mg/dL (4-19); BUN/Creat Ratio 9.5 RATIO (10-20); Bilirubin, Direct 0.72 mg/dL (0.00-0.30); Calcium,Total 8.1 mg/dL (7.6-11.0); Carbon Dioxide 31.5 mmol/L (21.0-32.0); Chloride 98 mmol/L (98-108); Estimated Creatinine Clearance 149.83 ml/min (50-250); Globulin 2.4 g/dL (2.2-4.2); Glucose 162 mg/dL (70-99); Potassium 3.4 mmol/L (3.3-5.1)
[2025-08-15] MEDS: Albuterol 2.5 MG/3 ML VIAL.NEB. INHALATION ×2 (06:54→12:56)
[2025-08-15] MEDS: Budesonide Respules 0.5 MG/2 ML AMPUL.NEB. INHALATION (06:54)
[2025-08-15] MEDS: Metoprolol(XL)Succ 25 MG Tablet PO (08:06)
[2025-08-15] MEDS: buPROPion (XL) 150 MG TABLET.XL PO (08:08)
--- NOTE | 2025-08-15 09:32 | ST.MBS ---
Modified Barium Swallow Patient Information Study Date: 08/15/25 Study Time: 13:30 Direct Billable Minutes: 99 Total Minutes procedure & reportin Diagnosis: DKA E11.1; NSTEMI I21.4 Referring Physician: Zev Tucker Reason for Referral: Objectively assess swallow function, assess risk for aspiration, and determine recommendations for least restrictive diet textures and compensatory strategies to improve safety of swallow. Medical History: The patient was admitted to [facility] 08/12/2025 for persistent vomiting for more than 24 hours along with decreased oral intake, odynophagia, and abdominal pain. Pt admitted for management of DKA, acute on chronic recurrent alcoholic pancreatitis, and dehydration amongst other comorbidities. BSE 08/13/2025 revealed continued odynophagia but no apparent swallowing difficulty w/ regular textures / thin liquids once cleared by physician (pt was on a transitional diet); however, REAL ESTATE SERVICES COORDINATOR did observe some coughing w/ purees and regular textures 08/14/2025 and recommended this MBSS to further assess concerns for aspiration. PMH is significant for admission to alcohol detoxification center, Pancreatitis, Hypokalemia, Nausea & vomiting, Intractable abdominal pain, Strain of left foot, Plantar fasciitis of left foot, Acute otitis media, right, Contact with or exposure to other viral diseases, URI (upper respiratory infection), Alcohol abuse, GERD, CPAP dependence, Smoker, COPD, CT, Seizures, History of left heart catheterization (~11/19/22), Sleep apnea, Pancreatitis, Acute lumbar myofascial strain, Strain of left hip, Depression, Anxiety, HTN (hypertension), Type 2 diabetes mellitus. Current Diet Ordered: Transitional (Regular / Thin per REAL ESTATE SERVICES COORDINATOR) Dentition: Upper Dentures and Lower Dentures Mental Status: WNL Respiratory Status: Oxygenating on Room Air Penetration-Aspiration Scale Penetration-Aspiration Scale: OBJECTIVE ASSESSMENT OF SWALLOW FUNCTION (QUANTITATIVE ? PER TRIAL): PENETRATION / ASPIRATION SCALE (ANDERSEN): 1 = does not enter airway 2 = enters airway/above vocal folds/ejected 3 = enters airway/above vocal folds/not ejected 4 = enters airway/contacts vocal folds/ejected 5 = enters airway/contacts vocal folds/not ejected 6 = enters airway/below vocal folds/ejected 7 = enters airway/below vocal folds/not ejected despite effort 8 = enters airway/below vocal folds/no effort VIDEOFLOROSCOPIC SCALE SCORE (ANDERSEN): Grade I = aspiration of material that has penetrated into the laryngeal vestibule, intact cough reflex Grade II = aspiration < 10 % of the bolus, intact cough reflex Grade III = aspiration of < 10 % of the bolus, reduced cough reflex or aspiration of > 10 % of the bolus, intact cough reflex Grade IV = aspiration of > 10 % of the bolus, reduced cough reflex Penetration-Aspiration Scale Score Thin Liquid via teaspoon: Result: 2= enter airway/above vocal folds/ejected Thin Liquid via teaspoon Trial 2: Result: 2= enter airway/above vocal folds/ejected Thin Liquid via large single sip: cup: Result: 2= enter airway/above vocal folds/ejected [place] Thick Liquid via small single sip: cup: Result: 5= enters airways/contacts vocal folds/not ejected Comment: Wincing immediately followed by odynophagia complaint as mildly thick liquids penetrated to the vocal cords. Reflexive throat clear after the swallow. Fluoroscopy was turned on and the laryngeal vestibule appeared clear of contrast. Pudding via teaspoon: Result: 2= enter airway/above vocal folds/ejected 1/2 Cookie: Result: 1= does not enter airway Thin Liquid via single sip: straw: Result: 2= enter airway/above vocal folds/ejected Comment: Trace post prandial laryngeal penetration of barium along the underside of the epiglottis prior to this swallow Thin Liquid via single sip: straw - Cued breath hold, then swallow: Result: 2= enter airway/above vocal folds/ejected Thin Liquid via single sip: straw - Cued breath hold, then swallow Trial 2: Result: 2= enter airway/above vocal folds/ejected Comment: Oral residues seen spilling to the laryngeal vestibule after the swallow, which fully cleared w/ independent initiation of a second swallow. Thin Liquid via single sip: straw - Cued breath hold, then swallow Trial 3: Result: 2= enter airway/above vocal folds/ejected Thin Liquid via sequential sips: cup: Result: 2= enter airway/above vocal folds/ejected Oral Phase Labial Seal: No Labial Escape Tongue Control During Bolus Hold: Posterior escape of greater than half of bolus Bolus Preparation/Mastication: Timely and efficient chewing and mashing Bolus Transport/Lingual Motion: Delayed initiation of tongue motion Oral Residue: Majority of bolus remaining (piecemeal deglutition) Pharyngeal Phase Initiation of Pharyngeal Swallow: Bolus head in pyriforms Soft Palate Elevation: Trace column of contrast/air between soft palate and pharyngeal wall Laryngeal Elevation: Partial superior movement thyroid cart/partial apprx aryt-epig petiole Anterior Hyoid Excursion: Partial anterior movement Epiglottic Movement: Partial inversion Laryngeal Vestibule Closure at Height of Swallow: Incomplete; narrow column of air/contrast in laryngeal vestibule Pharyngeal Stripping Wave: Present - diminished Pharyngoesophageal Segment Opening: Complete distension and complete duration; no obstruction of flow Tongue Base Retraction: Narrow column of contrast between tongue base & post. pharyngeal wall Pharyngeal Residue: Collection of residue within or on pharyngeal structures Esophageal Phase Esophageal Clearance: Complete clearance Treatment Strategies Effects of treatment strategies attemped:: Modified supraglottic swallow (hold breath, then swallow) = effective in decreasing depth and amount of laryngeal penetration. Diagnosis/Impression Diagnosis: Mild oropharyngeal dysphagia R13.12 [facility] Impressions: The oral phase is marked by... -Decreased bolus control w/ premature posterior loss of ~50% of the bolus to the pharynx prior to swallow onset w/ certain trials. Posterior loss of liquids to the laryngeal vestibule prior to swallow onset w/ thin liquids by tsp and thin liquids by straw. -Delayed tongue motion for A-P transport. -Piecemeal deglutition. -Oral residues spilled to the laryngeal vestibule after the swallow 1X. The pharyngeal phase is marked by... -Delayed swallow onset. -Decreased airway closure during the swallow due to decreased laryngeal elevation, decreased anterior hyoid excursion, and inconsistent epiglottic inversion. Consistent laryngeal penetration of thin liquids, which fully ejected during the swallow. Deep laryngeal penetration of mildly thick liquids to the vocal folds, which did not fully ejected and resulted in pt wincing and complaint of odynophagia. Delayed throat clear fully ejected barium contrast from the laryngeal vestibule. No aspiration during the study. A modified supraglottic swallow (hold breath, then swallow) was most effective in decreasing risk for aspiration as it decreased depth and amount of laryngeal penetration. Recommendations Diet: Regular Textures and Thin Liquids Comment: Ok to advance to Regular textures / Thin liquids if cleared by physician. Pt is currently on Transitional diet. Compensatory Strategies: Small Bites (Chew thoroughly), Small Sips (Breath hold, then swallow), Slow Rate (Bites/sips 1 at a time), Multiple Swallows, Sitting upright and Remain sitting upright for 30 minutes after PO intake Supervision: Distant Supervision Recommend Repeat Modified Barium Swallow: TBD (Would consider FEES if need for re-assessment of swallow function in the future) Need for Skilled Speech Therapy Services: Yes Comment: -Train the patient in strategies to decrease risk for aspiration. -Ongoing assessment of diet tolerance. -Train the patient in oropharyngeal exercise program to promote improve bolus control, swallow onset, pharyngeal motility, and airway closure (Lucinda, effortful, CTAR, Jessica). Education Completed: 1. Described result of evaluation. and 2. Pt understands evaluation & agrees with goals and treatment plan. Comment: No immediate ENT consult recommended as odynophagia onset after several days of vomiting; however, if painful swallowing does not fully resolve, please consult ENT. Status Active ST Patient: Active Contact Information [facility] Speech Therapy:: Juanita Roldan M.A. [facility]-REAL ESTATE SERVICES COORDINATOR Speech-Language Pathologist [facility] [address] [place] [address] [phone]
--- NOTE | 2025-08-15 10:32 | CASEMGMT ---
Social Work SW met with pt and introduced self and role of SW. Pt confirms pharmacy of choice is [facility] and pt states she has not concerns with picking up medications and paying for them. Pt spoke with SW regarding loss of spouse. Pt's in May after a stroke in November and pt has been pt's caregiver since that time. SW provided emotional support to pt. Pt states she has good support system including her mother, adult children and rastafarian family. Pt also offering during discussion that she realizes that she has an alcohol problem and will be following up with her counselor at [facility] for outpt IOP program. Support provided. PT denies any additional dc needs at this time. PRESTON Carrasco
[2025-08-15] MEDS: Potassium Chloride Oral Soln 20 MEQ/15 ML UDC 40 MEQ PO (11:06)
--- NOTE | 2025-08-15 13:44 | PCM.PN.ID ---
Physical Exam Narrative Feeling better, less nausea and abd discomfort. No fever. Has scratches from her dogs. Const alert and no apparent distress General Appearance: cooperative Resp normal air movement and clear to auscultation bilaterally Cardio regular rate and regular rhythm GI soft to palpation, non-tender and non-distended Skin no rashes or lesions noted ID ID: Route of nutrition/ use of supplements: [] Nutritional Intake: [] IV Site: [] [place] Catheter: [] Assessment & Plan Assessment/Plan (1) DKA (diabetic ketoacidoses): (2) Acute on chronic pancreatitis: (3) Bacteremia due to Gram-negative bacteria: PLAN: Pasteurella (+), suspect dogs at home as source. Cont unasyn while inpatient. Feeling better, wbc normal. Ok for home with 5 days po augmentin 875mg bid. Will follow
--- NOTE | 2025-08-15 14:47 | DCINST_ITS ---
Discharge Instructions DC O2, CPAP, BIPAP needs Home O2 Discharge instructions: No Dressing / Incision Discharge Activity: Return to Normal Activity Weight Bearing Status: Weight bearing as tolerated Dressing / Incision Call your doctor if you observe: Fever of 101 or Higher, Coldness, Increased Pain, Numbness or Tingling, Change in Color, Inability to urinate, Inability to have a bowel movement, Shortness of breath, Dizziness, Fainting spells, Swelling in the ankles, Chest pain, Prolonged hiccupping, Increased palpitations (irregular heartbeat) and Calf discomfort Follow Up Care When: IN 2 WEEKS Test Results: Test results from this visit will be discussed in further detail at your follow- up appointment, if applicable. Discharge Plan Admission Admit Date/Time: 08/12/25 12:43 Primary Reason for Your Visit: DKA resolved. Attending Provider: Zev Tucker Primary Care Provider: Abisai Haley Consulting Providers: Praful Olivo Discharge Orders/Prescriptions Prescriptions: New potassium chloride [K-Tab] 20 mEq tablet extended release 40 meq PO DAILY 7 Days Qty: 14 0RF amoxicillin-pot clavulanate 875-125 mg tablet 1 tab PO BID 5 Days Qty: 10 0RF magnesium chloride [Mag 64] 64 mg Tablet,Delayed Release (Dr/Ec) 128 mg PO BID 7 Days Qty: 28 0RF Continued metformin 500 mg tablet 500 ea PO BID cholecalciferol (vitamin D3) 50 mcg (2,000 unit) capsule 50 mcg PO DAILY albuterol sulfate 90 mcg/actuation HFA aerosol inhaler 2 puff inhalation Q6H PRN (Reason: shortness of breath or wheezing) Qty: 8.5 0RF aspirin 81 mg Tablet,Chewable 81 mg PO DAILY@0800 Qty: 30 0RF bupropion HCl 150 mg tablet extended release 24 hr 150 mg PO DAILY Patient Comments: take 1 tablet by mouth once daily montelukast [Singulair] 10 mg Tablet 10 mg PO DAILY lisinopril 40 mg tablet 40 mg PO DAILY levocetirizine 5 mg tablet 5 mg PO DAILY fluoxetine 40 mg capsule 40 mg PO DAILY atorvastatin 40 mg tablet 40 mg PO QHS naltrexone 50 mg tablet 50 mg PO DAILY lorazepam 1 mg tablet 1 mg PO BID metoprolol succinate 25 mg tablet extended release 24 hr 25 mg PO DAILY Jardiance 25 mg tablet 25 mg PO DAILY buspirone 5 mg tablet 5 mg PO TID PRN (Reason: anxiety) amlodipine 5 mg tablet 5 mg PO DAILY hydroxyzine HCl 10 mg tablet 10 mg PO TID PRN PRN (Reason: anxiety) budesonide-formoterol 160-4.5 mcg/actuation HFA aerosol inhaler 2 puff INHALATION BID glimepiride 4 mg tablet 4 mg PO DAILY Qty: 30 0RF Changed pantoprazole 40 mg tablet,delayed release (DR/EC) 40 mg PO DAILY 30 Days Qty: 30 0RF Referrals / Follow Up: Abisai Haley MD [Primary Care Provider, Family Practice] - Within 1 Week Disposition Disposition (needs filled in before D/C Order can be placed): Home, Self Care
--- NOTE | 2025-08-15 14:55 | PCM.DC.SUM ---
Providers Date of Admission: 08/12/25 Primary Care Physician: Aibsai Haley MD Consultations 08/13/25 15:40 Consult: Infectious Disease Routine Consulting Provider: Praful Olivo Reason for Consult: GNR bacteremia, DKA, alcoholic EMERGENT Consult: No MD Notified: Yes Date Notified: 08/13/25 Time Notified: 15:40 Method of Notification: Text Reason For Visit: DKA Diagnosis Discharge Diagnosis (1) DKA (diabetic ketoacidoses): Status: Acute Code(s): E11.10 - Type 2 diabetes mellitus with ketoacidosis without coma (2) Acute on chronic pancreatitis: Status: Chronic Code(s): K85.90 - Acute pancreatitis without necrosis or infection, unspecified; K86.1 - Other chronic pancreatitis (3) Bacteremia due to Gram-negative bacteria: Status: Acute Code(s): R78.81 - Bacteremia Plan This is 50-year-old female is being admitted for persistent vomiting for more than 24 hours along with decreased oral intake, abdominal pain. 1. DKA with history of type 2 diabetes mellitus with severe electrolyte abnormality: Patient is being admitted in ICU. Glucoses around 300 not very high because patient is on Jardiance, glimepiride and metformin. Needs to be aggressive rehydration, 2 L normal saline, 1 L/h and then D5 half NS plus KCl at 250 mL for another 2 L. Reevaluate fluid status afterwards with intake and output and IV fluid according. Insulin drip after 2 hours of IV fluid rehydration. Follow DKA protocol 08/13: Anion gap closed x 2. Sodium potassium and chloride are in normal range. Hypomagnesemia and hypophosphatemia. Magnesium and phosphorus IV replacement. Patient is still very symptomatic with abdominal pain, nausea and sore throat therefore continue IV fluid D5 half NS plus KCl at 150 mL/h and slow IV insulin drip. Speech therapy evaluation. 08/14: Glucose is 133- 223. Hypokalemia, potassium replaced. Hypomagnesemia corrected. D5 half NS +20 mL KCl. Lantus dose increased. Patient does not have good oral intake because of sore throat therefore IV fluid ordered. Oropharyngeal dysphagia. 08/15: Patient has mild sore throat. Evaluated by speech therapist. Regular texture diet with thin liquid. Advised outpatient speech/swallow therapy. If not getting better in 1 month follow-up with ENT Dr. Rashawn Smith. Gram-negative ermias bacteremia due to Pasteurella multocida: Blood culture prelim positive gram-negative rods. Identified as Pasteurella multocida, beta-lactamase negative. Continue IV Unasyn. ID consult reviewed 08/15: Gram-negative ermias Pasteurella multocida. Discharged on prescription of 5 more days of Augmentin as suggested by ID. Probably scratched by the dog as source of bacteremia. 2. Complex acid-base disorder, high anion gap metabolic acidosis and severe metabolic alkalosis with hypokalemia,: Patient has high anion gap metabolic acidosis, metabolic alkalosis from persistent vomiting, hyperchloremic HCl rich fluid and hypokalemia: BMP shows chloride very low 73 probably due to persistent HCl rich vomiting with reflex physiologic bicarb conservation, 17.4, anion gap 48. IV fluid normal saline and IV KCl ordered. Insulin drip. Sodium is normal. 08/13: Metabolic alkalosis. High anion gap metabolic acidosis. Beta-hydroxybutyrate normal. Anion gap closed x 2. Repeat bicarb is 26.5. Chloride 102. 08/15: Acid-base disorder resolved. 3. Acute on chronic recurrent alcoholic pancreatitis: Patient has right upper quadrant/epigastric tenderness and elevated lipase therefore meets criteria for acute pancreatitis. Last admitted in June 2025 for similar acute on chronic pancreatitis. IV fluid normal saline. Continue NPO. 08/13: CT scan shows moderate to severe fatty infiltration of the liver. No focal mass. Pancreas mild inflammation adjacent to the tail of pancreas. No pancreatic pseudocyst/phlegmon or evidence of necrosis. Biliary system negative. Status postcholecystectomy. 08/15: Patient still has mild abdominal pain. Advised to quit alcohol. 4. LUI due to severe dehydration and DKA, prerenal in etiology: BUN/creatinine ratio 10.8. BUN 20, creatinine 1.82. 08/13: BUN/creatinine 8/0.64. LUI resolved. 5. Sore throat possible acute tonsillitis: Triple PCR for SARS-CoV-2, flu and RSV are negative. Strep throat negative. Started on IV Unasyn. Cepacol conservative management Oropharyngeal dysphagia due to sore throat: BMX ordered. Modified barium swallow ordered for tomorrow AM. 6. Acute on chronic alcoholic hepatitis: AST 408, ALT 208, total bili 1.22. Icterus positive. Monitor liver chemistry 08/13: Repeat liver chemistry ordered 08/15 report lab request shows improvement in AST and ALT. Alkaline phosphatase elevated. Total bilirubin high normal. 7. Chronic alcohol use disorder: She stopped drinking alcohol about 2 weeks ago. Currently not having any acute alcohol withdrawal symptoms like tremors, disorientation delirium. CIWA monitor. 8. COPD: Currently not in exacerbation. Currently smokes about half pack per day. Advised quitting smoking. 9. Dyslipidemia: On statin. Hold it for now 10. Depression with anxiety: Hold oral medications. Patient on citalopram bupropion and buspirone 11. Severe malnutrition due to chronic alcohol use and inadequate oral intake. It is evidenced by: 10% unintentional weight loss. [employer] consult DVT prophylaxis: Patient has intermittent thrombocytopenia during previous hospitalization probably due to alcohol. Current 100 81K. Patient also has history of anemia and currently H&H 14.1/41.3 probably due to hemoconcentration. Enoxaparin 40 mg subcu daily Living will/advanced directive/end of life care: Patient does not have living will or advanced directive. After discussion of benefits/risks procedures involved with full code, DNR CC arrest and DNR CC, the patient opted for full code. Patient does want artificial life support including intubation, tube feed, ventilator and/chest compression, central venous catheter, vasopressor and DC shock if needed Discharge medication reconciliation done. Discharge follow-up instructions completed. Discharge process discussed with the patient and all questions were answered to patient's satisfaction. Follow with PCP in 1 to 2 weeks Total time spent, exact 35 minutes on discharge meds reconciliation, examination, coordination of care with nurses and ancillary staff, review of imaging and blood test and discussion with the patient on follow-up instructions. Microbiology Past 72 Hours 08/12/25 13:10 Blood Culture (Wb) - Anticubital Right Blood Culture - Preliminary Pasteurella multocida 08/12/25 20:00 Urine, Clean Catch Urine Culture - Final Mixed Gram Pos & Gram Neg Org 08/12/25 20:00 Urine, Clean Catch Streptococcus pneumoniae Antigen (M - Final 08/12/25 20:30 Mucosa - Nasopharyngeal Coronavirus COVID-19 PCR - Final 08/12/25 13:40 Nasal Secretion MRSA (PCR) - Final 08/12/25 08:32 Swab (Method) Streptococcus pyogenes (PCR) - Final 08/12/25 08:32 Mucosa - Nose SARS-CoV-2, Influenza & RSV (PCR) - Final Laboratory Results 08/13/25 13:08: Magnesium 1.0 L 08/13/25 14:00: POC Glucose 130 H 08/13/25 16:29: POC Glucose 110 H 08/13/25 21:53: POC Glucose 130 H 08/14/25 05:08: Sodium 140, Potassium 3.0 L, Chloride 96 L, Carbon Dioxide 30.8, Anion Gap 13, BUN 3 L, Creatinine 0.44 L, Estim Creat Clear Calc 135.02, Est GFR (MDRD) Non-Af 119, BUN/Creatinine Ratio 7.8 L, Glucose 131 H, Calcium 7.8, Magnesium 1.9, Total Bilirubin 1.04, Direct Bilirubin 0.66 H, AST 110 H, ALT 40 H, Alkaline Phosphatase 229 H, Total Protein 5.6 L, Albumin 3.1 L, Globulin 2.6 08/14/25 06:39: POC Glucose 138 H 08/14/25 11:21: POC Glucose 223 H Medications at Discharge Home Medications metformin 500 mg tablet 500 ea PO BID DIABETES 10/31/22 aspirin 81 mg chewable tablet 81 mg PO DAILY@0800 #30 tabs 11/19/22 bupropion HCl 150 mg 24 hr tablet, extended release 150 mg PO DAILY 01/21/23 montelukast 10 mg tablet (Singulair) 10 mg PO DAILY 04/09/23 cholecalciferol (vitamin D3) 50 mcg (2,000 unit) capsule 50 mcg PO DAILY 08/25/23 albuterol sulfate 90 mcg/actuation aerosol inhaler 2 puff inhalation Q6H PRN shortness of breath or wheezing #8.5 grams 04/27/24 empagliflozin 25 mg tablet (Jardiance) 25 mg PO DAILY 11/12/24 metoprolol succinate 25 mg tablet,extended release 24 hr 25 mg PO DAILY 11/12/24 amlodipine 5 mg tablet 5 mg PO DAILY 04/04/25 buspirone 5 mg tablet 5 mg PO TID PRN anxiety 04/04/25 hydroxyzine HCl 10 mg tablet 10 mg PO TID PRN PRN anxiety 04/04/25 levocetirizine 5 mg tablet 5 mg PO DAILY 04/11/25 lisinopril 40 mg tablet 40 mg PO DAILY 04/11/25 budesonide-formoterol HFA 160 mcg-4.5 mcg/actuation aerosol inhaler 2 puff inhalation BID SOB 04/26/25 glimepiride 4 mg tablet 4 mg PO DAILY #30 tabs 05/06/25 atorvastatin 40 mg tablet 40 mg PO QHS 07/17/25 fluoxetine 40 mg capsule 40 mg PO DAILY 07/17/25 lorazepam 1 mg tablet 1 mg PO BID 08/12/25 naltrexone 50 mg tablet 50 mg PO DAILY 08/12/25 amoxicillin 875 mg-potassium clavulanate 125 mg tablet 1 tab PO BID 5 days #10 tabs 08/15/25 magnesium chloride 64 mg (magnesium chloride) tablet,delayed release (Mag 64) 128 mg (2 x 64 mg) PO BID 7 days #28 tabs 08/15/25 pantoprazole 40 mg tablet,delayed release 40 mg PO DAILY 30 days #30 tabs 08/15/25 potassium chloride 20 mEq tablet,extended release (K-Tab) 40 meq (2 x 20 mEq) PO DAILY 1 week #14 tabs 08/15/25 Physical Exam Narrative Seen and examined. Patient complain of sore throat. She is not vomiting. Patient had modified barium swallow test done. No fever. Still complain of abdominal pain and epigastric region/RUQ Physical exam General: Alert, Oriented x3, Cooperative HEENT: Mild tenderness over throat region. Atraumatic, PERRLA, EOMI, Normocephalic. Oral: Oral mucosa moist. Tonsils enlarged probably chronic. No oral ulcer. Neck: Supple, No JVD, Negative Carotid Bruits Chest wall/Lungs: Air entry diminished in bilateral lung bases. No crepitation/rhonchi Cardiovascular: Regular rate and rhythm, Normal S1,S2, No M/G/R Abdomen: Bowel Sounds Present, Soft, mild tenderness over right upper quadrant/epigastric region : No dysuria. No renal angle tenderness. No suprapubic tenderness. Extremities: No edema, Capillary Refill Less than 3 Seconds Skin: No rashes, No breakdown Musculoskeletal: No Tenderness to Palpation of Joints or Extremities. ROM intact Neurological: Cranial nerves II-XII grossly intact, DTR 2+/4. No acute focal neurological deficit. Psych/Mental Status: Flat affect Medical Records Data Medical Nutrition Assessment Dietitian: Malnutrition Criteria Met Start: 08/13/25 09:43 Freq: Status: Active Protocol: Document 08/13/25 09:43 [facility] (Rec: 08/13/25 09:43 [facility] [id number]) Nutrition Malnutrition Evidence of Yes Malnutrition Exists Clinical Problem Acute Disease or Injury Related Malnutrition Etiology Pt with gi dysfunction w/ n/v mud analysis well logging captain and po intake inadequate to meet estimated nutritional needs Signs/Symptoms evidenced by n/v mud analysis well logging captain x 24 hours and po intake meeting < 75% of est nutritional needs x 2 wks mud analysis well logging captain, also w/ 18.3 % unplanned wt loss x 9 mo and 8.1% unplanned wt loss x < 1 month mud analysis well logging captain - sig for malnutrition. Status Active Problem Recommendation Dietitian As medically able, rec URSZULA to liberal CHO Controlled Recommendations/ diet d/t signs and symptoms of malnutrition Changes As medically able, rec glucerna shake 4x/day w/ medpass for increased nutrition if consumed. Weight / BMI Weight Weight: 118 lb 9.739 oz Body Mass Index (BMI) 20.3 ABG / Lab / Microbiology Data 08/13/25 04:30 08/15/25 05:22 Laboratory: Laboratory Results - last 24 hr 08/14/25 16:18: POC Glucose 112 H 08/14/25 21:21: POC Glucose 177 H 08/15/25 05:22: Sodium 140, Potassium 3.4, Chloride 98, Carbon Dioxide 31.5, Anion Gap 11, BUN 4, Creatinine 0.39 L, Estim Creat Clear Calc 149.83, Est GFR (MDRD) Non-Af 123, BUN/Creatinine Ratio 9.5 L, Glucose 162 H, Calcium 8.1, Total Bilirubin 1.19, Direct Bilirubin 0.72 H, AST 111 H, ALT 37 H, Alkaline Phosphatase 344 H, Total Protein 5.4 L, Albumin 3.1 L, Globulin 2.4 08/15/25 06:32: POC Glucose 179 H 08/15/25 11:08: POC Glucose 268 H Microbiology: Microbiology 08/12/25 13:10 Blood Culture (Wb) - Anticubital Right Blood Culture - Final Pasteurella multocida 08/12/25 20:00 Urine, Clean Catch Urine Culture - Final Mixed Gram Pos & Gram Neg Org 08/12/25 20:00 Urine, Clean Catch Streptococcus pneumoniae Antigen (M - Final 08/12/25 20:30 Mucosa - Nasopharyngeal Coronavirus COVID-19 PCR - Final 08/12/25 13:40 Nasal Secretion MRSA (PCR) - Final 08/12/25 08:32 Swab (Method) Streptococcus pyogenes (PCR) - Final 08/12/25 08:32 Mucosa - Nose SARS-CoV-2, Influenza & RSV (PCR) - Final D/C Instructions Weight Bearing Status: Weight bearing as tolerated Additional Activity Instructions: Outpatient speech therapy. Call your doctor if you observe: Fever of 101 or Higher, Coldness, Increased Pain, Numbness or Tingling, Change in Color, Inability to urinate, Inability to have a bowel movement, Shortness of breath, Dizziness, Fainting spells, Swelling in the ankles, Chest pain, Prolonged hiccupping, Increased palpitations (irregular heartbeat) and Calf discomfort DC O2, CPAP, BIPAP Needs Home O2 Discharge instructions: No When: IN 2 WEEKS Meaningful Use Info Meaningful Use Meaningful Use Diagnoses (Choose all that apply): None applicable Discharge Plan Admission Admit Date/Time: 08/12/25 12:43 Primary Reason for Your Visit: DKA resolved. Attending Provider: Zev Tucker Primary Care Provider: Abisai Haley Consulting Providers: Praful Olivo Discharge Orders/Prescriptions Prescriptions: New potassium chloride [K-Tab] 20 mEq tablet extended release 40 meq PO DAILY 7 Days Qty: 14 0RF amoxicillin-pot clavulanate 875-125 mg tablet 1 tab PO BID 5 Days Qty: 10 0RF magnesium chloride [Mag 64] 64 mg Tablet,Delayed Release (Dr/Ec) 128 mg PO BID 7 Days Qty: 28 0RF Continued metformin 500 mg tablet 500 ea PO BID cholecalciferol (vitamin D3) 50 mcg (2,000 unit) capsule 50 mcg PO DAILY albuterol sulfate 90 mcg/actuation HFA aerosol inhaler 2 puff inhalation Q6H PRN (Reason: shortness of breath or wheezing) Qty: 8.5 0RF aspirin 81 mg Tablet,Chewable 81 mg PO DAILY@0800 Qty: 30 0RF bupropion HCl 150 mg tablet extended release 24 hr 150 mg PO DAILY Patient Comments: take 1 tablet by mouth once daily montelukast [Singulair] 10 mg Tablet 10 mg PO DAILY lisinopril 40 mg tablet 40 mg PO DAILY levocetirizine 5 mg tablet 5 mg PO DAILY fluoxetine 40 mg capsule 40 mg PO DAILY atorvastatin 40 mg tablet 40 mg PO QHS naltrexone 50 mg tablet 50 mg PO DAILY lorazepam 1 mg tablet 1 mg PO BID metoprolol succinate 25 mg tablet extended release 24 hr 25 mg PO DAILY Jardiance 25 mg tablet 25 mg PO DAILY buspirone 5 mg tablet 5 mg PO TID PRN (Reason: anxiety) amlodipine 5 mg tablet 5 mg PO DAILY hydroxyzine HCl 10 mg tablet 10 mg PO TID PRN PRN (Reason: anxiety) budesonide-formoterol 160-4.5 mcg/actuation HFA aerosol inhaler 2 puff INHALATION BID glimepiride 4 mg tablet 4 mg PO DAILY Qty: 30 0RF Changed pantoprazole 40 mg tablet,delayed release (DR/EC) 40 mg PO DAILY 30 Days Qty: 30 0RF Referrals / Follow Up: Abisai Haley MD [Primary Care Provider, Family Practice] - Within 1 Week Rashawn Smith MD [Med Staff - Active Staff, Ear Nose Throat (ENT)] - Within 1 Month Referral Note: If patient has persistent sore throat for laryngeal evaluation Disposition Disposition (needs filled in before D/C Order can be placed): Home, Self Care Charges/Coding Visit Charges Inpatient E&M: 15655 Disch Hosp >30min
--- NOTE | 2025-08-15 15:12 | CASEMGMT ---
Addendum entered by Nettie Campa 08/15/25 16:07: ROSA BROWN into pt room, pt aware that ST is recommending OP ST. Pt states she would like to schedule this herself. She states she knows [facility] charges a certain amount for the eval and then for the treatments and she feels she can afford this. Provided pt with a rx for OP ST. Addendum entered by Nettie Campa 08/15/25 15:53: ST states she is recommending outpt ST. Rx sent to hospitalist for signature. Original Note: TC to [facility], spoke with adela Purcell cost for meds is $42.08. ROSA BROWN into pt room, pt sitting up in bed. Pt aware of cost of meds and that they were sent to [facility]. Pt states this is affordable to her. She states that it is ok that they were sent to [facility]. Pt denies any further homegoing needs at this time.
[2025-08-15] MEDS: Insulin Glargine-YFGN 100 UNIT/ML Pen 10 UNIT SC (16:27)
== END 2025-08-15 17:41 | disposition home or self-care (01) | DRG 637 ==
LOC: ED 10:41 → ICU 13:02 → PCU 08-13 15:26
PROVIDERS: Internal Medicine; Admitting Provider Internal Medicine; Emergency Provider Emergency Medicine; PCP Family Medicine; Visit Provider Internal Medicine
DX: E11.10 Type 2 diabetes mellitus with ketoacidosis without coma (principal); E43 Unspecified severe protein-calorie malnutrition; K85.90 Acute pancreatitis without necrosis or infection, unspecified; R78.81 Bacteremia; E87.3 Alkalosis; K86.1 Other chronic pancreatitis; N17.9 Acute kidney failure, unspecified; E88.89 Other specified metabolic disorders; R13.12 Dysphagia, oropharyngeal phase; Z51.5 Encounter for palliative care; Z66 Do not resuscitate; K70.10 Alcoholic hepatitis without ascites; J44.9 Chronic obstructive pulmonary disease, unspecified; I10 Essential (primary) hypertension; F17.210 Nicotine dependence, cigarettes, uncomplicated; F41.8 Other specified anxiety disorders; E87.6 Hypokalemia; E78.5 Hyperlipidemia, unspecified; K21.9 Gastro-esophageal reflux disease without esophagitis; K76.0 Fatty (change of) liver, not elsewhere classified; J03.90 Acute tonsillitis, unspecified; F10.90 Alcohol use, unspecified, uncomplicated; Z79.82 Long term (current) use of aspirin; Z83.3 Family history of diabetes mellitus; Z86.16 Personal history of COVID-19; Z90.49 Acquired absence of other specified parts of digestive tract; Z99.89 Dependence on other enabling machines and devices; Z68.20 Body mass index [BMI] 20.0-20.9, adult
CPT/HCPCS: 36415; 36600; 74177; 74230; 80048; 80053; 80076; 81001; 82010; 82803; 82962; 83036; 83605; 83690; 83735; 84100; 84703; 85025; 87040; 87077; 87086; 87088; 87186; 87449; 87631; 87635; 87641; 87651; 92526; 92610; 92611; 94640; 94762; 97802; 99285; 99406; Q9967; A4216; J0295; J2405

== ENCOUNTER 2025-11-03 08:06 | Emergency (ER) | payer SELFPAY ==
[2025-11-03 08:07] VITALS: BP 152/83; PULSE 103; RESP 16; TEMP 36.7; O2SAT 97; BMI 20.2
--- NOTE | 2025-11-03 08:30 | ED.VIS.GI ---
HPI HPI - GI History of Present Illness Chief Complaint: Abd Pain Informant: patient and spouse/S.O. Narrative Narrative: Patient is a 50-year-old female with a history of pancreatitis presenting with severe back and flank pain. - Pain began 5 days ago, described as severe and constant, initially noted upon waking Wednesday. Had drank some alcohol the days prior to the onset, but not a lot. - Pain is primarily located on the side and back all on the left, with some discomfort earlier in the epigastrium but not now. - Reports difficulty sleeping and getting comfortable due to the pain. - Pain worsens with movement, particularly worsening with lifting her left leg. - Yesterday, pain decreased slightly, described as achy but not as severe. - Associated symptoms include nausea, but denies emesis. - Denies dyspnea or changes in chronic cough. - Denies dysuria. - Reports recent constipation, took Senokot, had a bowel movement this morning but not of normal quantity; denies hard stools, and bowel movement did not alleviate pain. - Denies history of nephrolithiasis. - Denies recent heavy lifting or activities that could explain muscular strain. - Chronic smoker, denies changes in cough. - Reports episodes of diaphoresis followed by feeling cold, but no measured fevers. [facility] Medical History Admitted to alcohol detoxification center Pancreatitis Hypokalemia Nausea & vomiting Intractable abdominal pain Strain of left foot Plantar fasciitis of left foot Acute otitis media, right Contact with or exposure to other viral diseases URI (upper respiratory infection) Alcohol abuse GERD (gastroesophageal reflux disease) CPAP (continuous positive airway pressure) dependence Smoker COPD (chronic obstructive pulmonary disease) Myocardial infarct Seizures History of left heart catheterization (LHC) (~11/19/22) Sleep apnea Pancreatitis Acute lumbar myofascial strain Strain of left hip Depression Anxiety Diabetes HTN (hypertension) Type 2 diabetes mellitus Home Medications ?Medication ?Instructions ?Recorded ?Last Taken ?Type metformin 500 mg tablet 500 ea PO BID DIABETES 10/31/22 11/02/25 History aspirin 81 mg chewable tablet 81 mg PO DAILY@0800 heart health 11/19/22 11/02/25 Rx #30 tabs bupropion HCl 150 mg 24 hr tablet, 150 mg PO DAILY mental health 01/21/23 11/02/25 History extended release montelukast 10 mg tablet 10 mg PO DAILY allergies 04/09/23 11/02/25 History (Singulair) cholecalciferol (vitamin D3) 50 50 mcg PO DAILY vitamin 08/25/23 11/02/25 History mcg (2,000 unit) capsule empagliflozin 25 mg tablet 25 mg PO DAILY diabetes 11/12/24 11/02/25 History (Jardiance) metoprolol succinate 25 mg 25 mg PO DAILY blood pressure 11/12/24 11/02/25 History tablet,extended release 24 hr amlodipine 5 mg tablet 5 mg PO DAILY blood pressure 04/04/25 11/02/25 History buspirone 5 mg tablet 5 mg PO TID PRN anxiety 04/04/25 11/02/25 History hydroxyzine HCl 10 mg tablet 10 mg PO Q8H PRN anxiety 04/04/25 11/02/25 History levocetirizine 5 mg tablet 5 mg PO DAILY allergies 04/11/25 11/02/25 History lisinopril 40 mg tablet 40 mg PO DAILY blood pressure 04/11/25 11/02/25 History budesonide-formoterol HFA 160 2 puff inhalation BID SOB 04/26/25 11/02/25 History mcg-4.5 mcg/actuation aerosol inhaler atorvastatin 40 mg tablet 40 mg PO QHS cholesterol 07/17/25 11/02/25 History fluoxetine 40 mg capsule 40 mg PO DAILY mental health 07/17/25 11/02/25 History lorazepam 1 mg tablet 1 mg PO BID PRN anxiety 08/12/25 08/11/25 History naltrexone 50 mg tablet 50 mg PO DAILY prevent drug use 08/12/25 08/11/25 History pantoprazole 40 mg tablet,delayed 40 mg PO DAILY 30 days #30 tabs 08/15/25 11/02/25 Rx release hydrocodone-acetaminophen 5-325mg 1 tab PO Q6H PRN PRN Pain 3 days 11/03/25 Unknown Rx 5mg-325mg #12 TABLETS hyoscyamine sulfate 0.125 mg 0.25 mg (2 x 0.125 mg) sublingual 11/03/25 Unknown Rx sublingual tablet Q6H PRN abominal discomfort #12 tabs ondansetron 8 mg disintegrating 8 mg PO Q8H PRN nausea and 11/03/25 Unknown Rx tablet vomiting #12 tabs potassium chloride 20 mEq 20 meq PO BID #10 tabs 11/03/25 Unknown Rx tablet,extended release (K-Tab) Allergy/AdvReac Type Severity Reaction Status Date / Time No Known Allergies Allergy Verified 11/03/25 08:08 Family History Grandfather CVA (cerebral vascular accident) Diabetes Mother Cancer Father Hypertension Grandmother Hypertension Diabetes Surgical History History of cholecystectomy H/O tooth extraction plantar fasciitis release Social History household members: spouse and children housing: house pets and animals: Yes Smoking Status: Light Smoker (<10/day) alcohol intake: current alcohol intake frequency: 3 or more drinks per day Alcohol type: hard liquor details: At least 1/5 vodka daily, recently increased EtOH intake. substance use type: does not use ROS ROS ED Constitutional Constitutional ED: Reports chills; Denies fever(s) Eyes Eyes: Denies change in vision or diplopia ENT ENT ED: Denies rhinorrhea or sore throat Cardiovascular Cardiovascular: Denies chest pain or palpitations Respiratory/Chest Respiratory/Chest: Reports cough; Denies dyspnea or sputum Gastrointestinal Gastrointestinal: Reports abdominal pain, constipation and nausea; Denies diarrhea or vomiting Genitourinary Genitourinary ED: Reports flank pain; Denies dysuria or hematuria Musculoskeletal Musculoskeletal: Denies back pain or neck pain Integumentary Denies abscess or rash Neurologic Neurologic: Denies headache(s), paresthesias or weakness Psychiatric Psychiatric: Denies suicidal thoughts EXAM Physical Exam Const Vital Signs: 11/03/25 08:07 11/03/25 10:06 11/03/25 12:00 Temperature 98.0 F Temperature Source Oral Pulse Rate 103 H 90 81 Respiratory Rate 16 13 14 Blood Pressure 152/83 H 151/81 H 142/91 H Blood Pressure Mean 106 104 108 Pulse Ox 97 96 96 Oxygen Delivery Method Room Air Room Air Room Air 11/03/25 13:23 Temperature 98.0 F Temperature Source Pulse Rate 85 Respiratory Rate 19 H Blood Pressure 127/85 H Blood Pressure Mean 99 Pulse Ox 96 Oxygen Delivery Method Positive well nourished and well developed General Appearance ED: well developed and NAD HEENT Reports moist mucous membranes normocephalic and atraumatic Eyes PERRL and EOMs intact bilaterally Neck full ROM and supple Resp normal respiratory effort and clear to auscultation bilaterally Cardio regular rate, regular rhythm and no murmurs GI non-distended GI Narrative: Very tender throughout the left abdomen especially in the middle of the flank. No distention. No other abdominal tenderness. Auscultation: normoactive bowel sounds Palpation: soft; Negative for guarding or rebound tenderness present Back/Spine General Back: CVA tenderness left (and also with superficial palpation throughout this area; nml inspection, no rash) and other FROM Extremity normal to inspection General Extremety ED: Negative for edema, pulses abnormal or tenderness General Extremity: Negative for edema or pulses abnormal Neuro oriented x3, CN's II-XII intact bilaterally, no sensory deficits noted and gait normal Sensorium / Orientation: awake and alert Motor Exam: strength 5/5 throughout Psych thought process normal Mood & Affect: anxious and tearful Skin no rashes or lesions noted and no wounds MDM MDM MDM Narrative Medical decision making narrative: Assessment: The patient is a 50-year-old female with PMH of chronic pancreatitis presenting for five days of severe left lateral abdominal and back pain radiating to the left leg, associated with intermittent nausea but no vomiting, fevers, or urinary complaints. CT abdomen/pelvis shows no acute intra-abdominal process but mild residual inflammatory change at the pancreatic tail. There is some suspicion of hepatic steatosis.. Lipase is only mildly elevated at 209 U/L, and the clinical picture is less consistent with acute pancreatitis. Liver chemistries are markedly elevated (AST 305, ALT 404, total bilirubin 2.19) compared with prior values, etiology unclear. Given stable vital signs, benign abdominal exam aside from focal tenderness, and imaging/lab profile, chronic pancreatitis with acute flare and unexplained transaminitis/hyperbilirubinemia is most likely; acute pancreatitis and biliary obstruction are less likely at this time. Plan: - Provided symptomatic care in ED; patient clinically comfortable and tolerating oral intake. - Prescribed antiemetic for nausea. - Prescribed analgesic for pain control. - Prescribed 5-day oral potassium replacement for hypokalemia. - Discussed admission option; patient declined and is safe for discharge. - Discharge home with instructions to follow up with GI (Dr. Coughlin) and PCP (Dr. Haley) after weekend. Diagnostics: - CT abdomen/pelvis: no acute findings; mild residual inflammatory change at pancreatic tail, favoring chronic pancreatitis. - Labs: lipase 209 U/L (mildly elevated); AST 305 U/L; ALT 404 U/L; alkaline phosphatase 168 U/L; total bilirubin 2.19 mg/dL; potassium 2.6. Consultations: - GI (Dr. Coughlin) ? agrees findings consistent with chronic pancreatitis; recommends outpatient viral hepatitis panel, CT pancreas protocol, and MRCP, given that hyperbilirubinemia is new compared with values couple months ago although may be related to hepatic steatosis; agrees discharge acceptable if patient desires, which she does. Of note, patient desired a prescription for analgesics which was given, Mar[place]. Naltrexone is not in her list. She states she is not taking her right now, she lost and recently got a new prescription it is for alcohol use, she does not have a history of opiate addiction. I advised her not to take her naltrexone yet until she is no longer needing the [place]. She was only given a short course. History & Record Review Additional record(s) reviewed:: Prior labs (and CT imaging) Lab Data Attestation: I reviewed the patient's lab results. Labs: Laboratory Results - last 24 hr 11/03/25 11/03/25 08:25 09:56 WBC 6.8 RBC 3.66 L Hgb 12.6 Hct 36.5 L MCV 99.7 H MCH 34.4 H MCHC 34.5 RDW Std Deviation 47.0 H RDW Coeff of Braxton 13.0 Plt Count 129 L MPV 10.5 Immature Gran % (Auto) 0.400 Neut % (Auto) 68.0 Lymph % (Auto) 12.9 L Cannon % (Auto) 17.7 H Eos % (Auto) 0.4 Baso % (Auto) 0.6 Absolute Neuts (auto) 4.7 Absolute Lymphs (auto) 0.88 Nucleated RBC % 0 PT 13.3 INR 1.0 Sodium 137 Potassium 2.6 L* Chloride 92 L Carbon Dioxide 30.6 Anion Gap 15 BUN 13 Creatinine 0.60 L Estim Creat Clear Calc 96.89 Est GFR (MDRD) Non-Af 110 BUN/Creatinine Ratio 21.7 H Glucose 226 H Calcium 7.9 Total Bilirubin 2.19 H AST 305 H ALT 404 H Alkaline Phosphatase 168 H Total Protein 7.1 Albumin 3.7 Globulin 3.3 Albumin/Globulin Ratio 1.1 Lipase 209 H Serum , Qual NEGATIVE Urine Color Yellow Urine Clarity Clear Urine pH 7.0 Ur Specific Baker 1.005 Urine Protein 30 H Urine Glucose (UA) 100 H Urine Ketones Negative Urine Occult Blood Negative Urine Nitrite Negative Urine Bilirubin Negative Urine Urobilinogen 1 H Ur Leukocyte Esterase Negative Urine RBC 0 SEEN Urine WBC 0 SEEN Ur Squamous Epith Cells 0 SEEN Urine Bacteria 0 SEEN Urine Mucus 0 SEEN Radiography Diagnostic Testing: Clinical Impression(s) from Imaging Studies Abdomen/Pelvis CT 11/03/25 08:50 IMPRESSION: 1. Slightly increased inflammatory changes involving the pancreatic tail compatible with persistent pancreatitis. No evidence of necrosis or pseudocyst formation. 2. Hepatomegaly and moderate diffuse hepatic steatosis. Reading Location: [facility] Management Discussion w/another healthcare provider: Director Of Quality Improvement (NERI Coughlin) Discharge Plan Triage Chief Complaint: Abd Pain ED Provider: Wellington Rader Dx/Rx/DC Orders Clinical Impression: Left sided abdominal pain, Acute hypokalemia, Chronic pancreatitis, Acquired hyperbilirubinemia, Elevated liver enzymes Instructions: Pancreatitis Chronic Dc, ED Hypokalemia Prescriptions: New hydrocodone-acetaminophen 5-325 mg tablet 1 tab PO Q6H PRN PRN (Reason: Pain) 3 Days Qty: 12 0RF hyoscyamine sulfate 0.125 mg tablet, sublingual 0.25 mg sublingual Q6H PRN (Reason: abominal discomfort) Qty: 12 0RF ondansetron 8 mg tablet,disintegrating 8 mg PO Q8H PRN (Reason: nausea and vomiting) Qty: 12 0RF potassium chloride [K-Tab] 20 mEq tablet extended release 20 meq PO BID Qty: 10 0RF No Action metformin 500 mg tablet 500 ea PO BID cholecalciferol (vitamin D3) 50 mcg (2,000 unit) capsule 50 mcg PO DAILY aspirin 81 mg Tablet,Chewable 81 mg PO DAILY@0800 Qty: 30 0RF bupropion HCl 150 mg tablet extended release 24 hr 150 mg PO DAILY Patient Comments: take 1 tablet by mouth once daily montelukast [Singulair] 10 mg Tablet 10 mg PO DAILY lisinopril 40 mg tablet 40 mg PO DAILY levocetirizine 5 mg tablet 5 mg PO DAILY fluoxetine 40 mg capsule 40 mg PO DAILY atorvastatin 40 mg tablet 40 mg PO QHS naltrexone 50 mg tablet 50 mg PO DAILY lorazepam 1 mg tablet 1 mg PO BID PRN (Reason: anxiety) pantoprazole 40 mg tablet,delayed release (DR/EC) 40 mg PO DAILY 30 Days Qty: 30 0RF metoprolol succinate 25 mg tablet extended release 24 hr 25 mg PO DAILY Jardiance 25 mg tablet 25 mg PO DAILY buspirone 5 mg tablet 5 mg PO TID PRN (Reason: anxiety) amlodipine 5 mg tablet 5 mg PO DAILY hydroxyzine HCl 10 mg tablet 10 mg PO Q8H PRN (Reason: anxiety) budesonide-formoterol 160-4.5 mcg/actuation HFA aerosol inhaler 2 puff INHALATION BID Primary Care Provider: Abisai Haley Referrals: Abisai Haley MD [Primary Care Provider, Family Practice] - As soon as possible Friend,DO Frank [Med Staff - Active Staff, Gastroenterology] Referral Note: call for appt to be after outpatient CT/MRI obtained Print Language: Chadian Disposition Disposition: Home, Self Care
[2025-11-03 08:39] LABS: Hematocrit 36.5 % (37-47); Hemoglobin 12.6 g/dL (12.0-15.0); Immature Granulocytes Count 0.030 X10^3/uL (0.0-0.0); Mean Corp Hgb Conc 34.5 g/dL (32-36); Mean Corpuscular Volume 99.7 fL (81-99); Mean Platelet Vol. 10.5 fl (6.2-12.0); NRBC Flagged by Analyzer 0 % (0-5); Platelet Count 129 K/mm3 (150-450); RBC Distribution Width CV 13.0 % (11.6-14.6); RBC Distribution Width SD 47.0 fl (35.1-43.9); Red Blood Count 3.66 M/mm3 (4.2-5.4); White Blood Count 6.8 K/mm3 (4.4-11.0)
[2025-11-03 08:46] LABS: Internal QC Validated? YES +Cl - CLEAR BKGD; Pregnancy, Serum, hCG Quali. NEGATIVE Negative
--- OUTSIDE RECORDS SUMMARY | 2025-11-03 08:48 | XMS RPT_ITS | CCD ---
Author Organization [facility] Care Team Providers Care Utilization Management Nurse Name Role Phone Required, No Pcp Unavailable Unavailable MikoNoe zhang Unavailable Ihasn Aguilar DO Primary Care Provider [phone] Calvin Waldrop Primary Care Provider Unavailabl e Calvin Waldrop Referring Provider Unavailable Brendan SMITH, LUIS Lang Attending Provider Dr. Calvin Waldrop Primary Care Provider Dr. Calvin Waldrop Referring Provider Kelly SMITH, PA Daniel Pederson Attending Provider Amanda SMITH, PA Cassandra Pederson Attending Provider Dr. Saumya Tavares Emergency Provider Dr. Jay Kay Admit Provider Dr. Jay Kay Other Provider Dr. aClvin Piña Attending Provider Dr. Jay Kay Attending [...] Provider Dr. Young Kiran Referring Provider Ganesh GREEN HIDE INSPECTOR, GREEN HIDE INSPECTOR-C Jim Attending Provider Jose, DO Milana M Primary Care Provider Jose, DO Milana M Referring Provider Beau SMITH PA Jericho Attending Provider Jose, DO Milana M Primary Care Provider Jose, DO Milana M Primary Care Provider Jose, DO Milana M Referring Provider LUIS Rosario Attending Provider Ganesh GREEN HIDE INSPECTOR, GREEN HIDE INSPECTOR-C Jim Attending Provider LUIS Gramajo Attending Provider Jose, DO Milana M Primary Care Provider Jose, DO Milana M Referring Provider LUIS Gramajo Attending Provider Dr. Jose Taylor Attending Provider Ihsan Aguilar DO Primary Care Provider IHSAN AGUILAR Primary Care Unavailable Sudha LEBLANC, Abisai Primary Care Provider Dr. Imani Knight DO Emergency Provider Dr. Imani Kinght DO Attending Provider Dr. Francisco Colon MD Emergency Provider [phone] Dr. Francisco Colon MD Attending Provider Dr. Humphrey Garcia DO Referring Provider Dr. Humphrey Garcia DO Emergency Provider Antwan LEBLANC, Dr. [place] [facility]ending Provider Dashawn Moncada MD, Dr. [place] Other Provider Unavailab rob Becker DO, Dr. Cavanaugh Attending Provider Lucia LEBLANC, Dr. Lemos Other Provider Unavailable Antwan LEBLANC, Dr. [place] Attending Provider Dashawn Myers MD, Dr. Lemos Attending Provider Unavaila tommie Becker DO, Dr. Cavanaugh Other [facility] Dr. Morales Emergency Provider Chaka LEBLANC, Dr. Myra Siu Admit Provider Chaka LEBLANC, Dr. Myra Siu Attending Provider Chaka LEBLANC, Dr. Myra Siu Other Provider Chaka LEBLANC, Dr. Myra Siu Attending Provider Sudha LEBLANC, Thang Primary Care Provider Eugene STARK, Dr. Diallo [...] Dashawn Myers MD, Dr. Lemos Attending Provider Unavaildaysi Becker DO, Dr. Cavanaugh Other Provider LindaStaci STARK, Dr. Morales Emergency Provider Chaka LEBLANC, Dr. Myra Siu Admit Provider Chaka LEBLANC, Dr. Myra Siu Other Provider Chaka LEBLANC, Dr. Myra Siu Attending Provider Lucia LEBLANC, Dr. Lemos Admit Provider Unavailable Sudha LEBLANC, Abisai Primary Care Provider Isaiah LEBLANC, Dr. Singh Emergency Provider Prasanth LEBLANC, Dr. Paris Emergency Provider Garrett LEBLANC, Dr. Brothers Admit Provider Garrett LEBLANC, Dr. Brothers Attending Provider Sudha LEBLANC, Abisai Primary Care Physician Dr. Humphrey Garcia DO Emergency Department Physic margot Antwan LEBLANC, Dr. [place] Admitting Physician Luis Fernando Moncada MD, Dr. [place] Nurse Practitioner Dashawn Becker DO, Dr. Cavanaugh Attending Physician Lucia LEBLANC, Dr. Lemos Nurse Practitioner Unavaila tommie Moncada MD, Dr. [place] Attending Physician Luis Fernando Myers MD, Dr. Lemos Attending Physician Unavail able Rosita STARK, Dr. Cavanaugh Nurse Practitioner Josafat STARK, Dr. Morales Emergency Departmen t Physician Chaka LEBLANC, Dr. Myra Siu Admitting Physician Chaka LEBLANC, Dr. Myra Siu Nurse Practitioner Chaka LEBLANC, Dr. Myra Siu Attending Physician Isaiah LEBLANC, Dr. Singh Emergency Department Physici an Lucia LEBLANC, Dr. Lemos Admitting Physician Unavail leigh Rader MD, Dr. Paris Emergency Department Phys ician Garrett LEBLANC, Dr. Brothers Admitting Physician Garrett LEBLANC, Dr. Brothers Attending Physician Pallavi LEBLANC, Dr. Basilio Nurse Practitioner [phone] Garrett LEBLANC, Dr. Brothers Nurse Practitioner Abisai Haley Primary Care Unavailable Zev Tucker Admitting Unavailable Zev Tucker Attending Unavailable Praful Olivo Consulting Unavailable Zev Tucker Consulting Unavailable Abisai Haley Referring Unavailable Abisai Haley Attending Unavailable Sudha, Chalon Primary Care Unavailable Canelo Myers Attending Unavailable Canelo Myers Admitting Unavailable Sudha, Chalon Primary Care Unavailable Canelo Myers Admitting Unavailable Canelo Myers Consulting Unavailable Canelo Myers Attending Unavailable Sudha, Chalon Primary Care Unavailable White, Myra L Consulting Unavailable White, Myra L Admitting Unavailable Sudha, Chalon Primary Care Unavailable Mao Becker Attending Unavailable Mao Becker Consulting Unavailable Sudha, Chalon Primary Care Unavailable Jose Taylor Attending Unavailable Sudha, Chalon Referring Unavailable Sudha, Chalon Primary Care Unavailable Ivon Sams Attending Unavailable Canelo Myers Attending Unavailable Humphrey Garcia Referring Unavailable Moncada, Achintya Admitting Unavailable Moncada, Achintya Consulting Unavailable Sudha, Chalon Primary Care Unavailable KitCanelo madrigal Consulting Unavailable Sudha, Chalon Referring Unavailable Lorenzo Stewart Attending Unavailable Sudha, Chalon Primary Care Unavailable Francisco Colon Attending Unavailable Sudha, Chalon Primary Care Unavailable Sudha, Chalon Primary Care Unavailable Imani Knight Attending Unavailable Sudha, Chalon Primary Care Unavailable Ivon Sams Referring Unavailable Ivon Sams Attending Unavailable White, Myra L Admitting Unavailable White, Myra L Consulting Unavailable Sudha, Chalon Primary Care Unavailable Mao Becker Attending Unavailable Rosita, Mao Attending Unavailable Mao Becker Consulting Unavailable White, Myra L Attending Unavailable Sudha, Chalon Primary Care Unavailable Moncada, Achintya Attending Unavailable Sudha, Chalon Primary Care Unavailable Rober Concepcion Attending Unavailable Praful Olivo Consulting Unavailable Garrett, Zev Attending Unavailable Garrett, Zev Admitting Unavailable Sudha, Chalon Primary Care Unavailable Humphrey Garcia Referring Unavailable Moncada, Achintya Admitting Unavailable Moncada, Achintya Consulting Unavailable Sudha, Chalon Primary Care Unavailable Mao Becker Attending Unavailable Canelo Myers Consulting Unavailable Medications Current Medications Medication Drug Class(es) Dates Sig (Normalized) Sig (Original) [id number] 200 actuat albuterol 0.09 mg/actuat metered dose [...] 2 PUFF INHALATION EVERY 4 HOURS NEEDED 1 September 12, 2018 9:54am February 23, 2021 [...] 0 Active amLODIPine 5 mg oral tablet (17 sources) Dihydropyridine Calcium Channel Lovely Start: 04-04-2025 [...] 1 tablet by jean th once daily. amoxicillin 875 mg / clavulanate 125 mg oral tablet (20 sources) Penicillin-class Antibacterial Start: 08-15-2025 Start: 09-15-2023 End: 09-27-2023 Start: 09-15-2023 End: [...] 01, 2023 12:00am July 11, 2023 12:03am aspirin 81 mg chewable tablet (20 sources) Platelet Aggregation Inhibitor, Nonsteroidal Anti-inflammatory Drug Start: 11-19-2022 Budesonide-Formoterol (20 sources) Corticosteroid, beta2-Adrenergic Agonist Start: [...] Comment on above: Take 1 tablet by once daily. busPIRone hydrochloride 5 mg oral tablet (11 sources) Start: 04-04-2025 Start: 02-23-2021 take 15 mg by mouth twice isabel y Buspirone Active 15 MG PO TWICE A DAY February 23, 2021 9:15am cholecalciferol 0.05 mg oral capsule (13 sources) Vitamin D Start: 08-25-2023 cyclobenzaprine hydrochloride [...] End: 11-12-2024 FLUoxetine 40 mg oral capsule (4 sources) Serotonin Reuptake Inhibitor Start: 07-17-2025 fluticasone [...] 2021 9:17am glimepiride 4 mg oral tablet (7 sources) Sulfonylurea Start: 05-06-2025 hydrOXYzine hydrochloride 10 mg oral tablet (14 sources) Antihistamine Start: 04-04-2025 Start: 04-01-2020 take [...] mg tablet Discontinued 5 mg PO DAILY 30 January 24, 2024 11:52am August 22, 2024 10:20am BLOOD PRESSURE Start: 06-09-2023 End: 07-23-2023 take 1 tablet by mouth once daily Lisinopril 10 mg tablet Discontinued 10 mg PO DAILY 30 June 09, 2023 8:25am July 23, 2023 [...] 1 tablet by jean th once daily. LORazepam 1 mg oral tablet (2 sources) Benzodiazepine Start: 08-12-2025 magnesium chloride 598 mg delayed release oral tablet (1 source) Start: 08-15-2025 metFORMIN hydrochloride 500 mg oral tablet (20 sources) Biguanide Start: 10-31-2022 Start: 07-25-2019 take 1 tablet by jean th twice daily metFORMIN (GLUCOPHAGE) 500 mg tablet Take 1 tablet by mouth twice daily. 180 tablet 1 06/07/2020 Active Comment on above: Take 1 tablet by jean th twice daily. 24 hr metoprolol succinate 2 5 mg extended release oral tablet (20 sources) beta-Adrenergic Lovely Start: 11-12-2024 Start: 10-31-2022 End: 11-12-2024 Start: 10-31-2022 End: 05-20-2023 take [...] TABLET PO DAILY February 22, 2022 12:47pm naltrexone hydrochloride 50 mg oral tablet (2 sources) Opioid Antagonist Start: 5 Thoreau-3 Fatty Acids (3 sources) Start: 3 take 1000 mg by mouth once daily Thoreau-3 Fatty Acids Active 1000 MG PO DAILY August 24, 2023 11:00pm Start: 08-25-2023 take 1000 mg by mouth once colleen ly Thoreau-3 Fatty Acids Active 1000 MG PO DAILY August 25, 2023 12:00am omeprazole 20 mg delayed release oral capsule (1 source) Proton Pump Inhibitor Start: 02-22-2022 take 20 mg by mouth once daily Omeprazole Active 20 MG PO DAILY February 22, 2022 12:47pm pantoprazole 40 mg delayed release oral tablet (20 sources) Proton Pump Inhibitor Start: 04-11-2023 End: 08-15-2025 Start: 04-11-2023 End: 05-04-2023 take 1 tablet [...] 1 tablet by jean th once daily. potassium chloride 20 meq extended release oral tablet (11 sources) Start: 08-15-2025 Start: 04-04-2025 End: 04-26-2025 spironolactone 25 mg oral tablet (1 source) Aldosterone Antagonist Start: 02-23-2021 take 25 mg by mouth once daily [...] Chronic pancreatitis Epigastric pain Other chronic pancreatitis atorvastatin 40 mg oral tabl et (20 sources) HMG-CoA Reductase Inhibitor Start: 08-26-2023 End: 07-17-2025 citalopram 40 mg oral tablet (20 sources) Serotonin Reuptake Inhibitor Start: 04-11-2025 End: 07-17-2025 Start: 03-22-2023 End: 04-11-2025 clindamycin 300 mg oral caps ule (12 sources) Lincosamide Antibacterial Start: 09-27-2023 End: 08-22-2024 dextromethorphan hydrobromid e 2 mg/ml / guaiFENesin 20 mg/ml oral solution (16 sources) Uncompetitive U-uqkghw-J-aspartate Receptor Antagonist, Sigma-1 Agonist Start: 07-01-2023 End: [...] 2023 12:00am diazePAM 5 mg oral tablet (10 sources) Benzodiazepine Start: 07-11-2024 End: 08-28-2024 doxycycline [...] 12:00am magnesium oxide 250 mg oral tablet (9 sources) Start: 04-11-2025 End: 04-26-2025 meloxicam 15 mg oral tablet (10 sources) Nonsteroidal Anti-inflammatory Drug Start: 08-28-2024 End: [...] 17, 2023 12:00am February 18, 2023 12:05am Thoreau-3 Fatty Acids 1,000 mg capsule (6 sources) Start: 08-25-2023 End: 05-06-2025 take 1 capsule by mouth once daily Thoreau-3 Fatty Acids 1,000 mg capsule Discontinued 1000 mg PO DAILY August 25, 2023 12:00am May 06, 2025 1:18pm Start: 08-25-2023 take 1 capsule by mo [facility] once daily Thoreau-3 Fatty Acids 1,000 mg capsule Active 1000 mg PO DAILY August 25, 2023 12:00am ondansetron 4 mg disintegrat ing oral tablet (20 sources) Serotonin-3 Receptor Antagonist Start: 07-20-2025 End: 08-12-2025 Start: 04-04-2025 End: 04-26-2025 Start: 04-27-2024 End: [...] Comment on above: Take 1 tablet by [facility] every 6 hours as needed for Nausea/Vomiting. oxyCODONE hydrochloride 5 mg oral tablet (3 sources) Opioid Agonist Start: 07-20-2025 End: 08-12-2025 phenazopyridine hydrochlorid e 95 mg oral tablet (10 sources) Start: 08-25-2023 End: 04-11-2025 predniSONE 10 mg oral tablet (15 sources) Start: 03-22-2024 End: 08-22-2024 Start: 07-21-2022 [...] 2021 9:16am tiZANidine 4 mg oral tablet (10 sources) Central alpha-2 Adrenergic Agonist Start: 4 End: 5 varenicline 1 mg oral tablet (8 sources) Partial Cholinergic Nicotinic Agonist Start: 4 End: 5 Start: 03-21-2024 take 1 tablet by mouth once va renicline (CHANTIX) 1 mg tablet Take 1 tablet by mouth every afternoon. 0 03/21/2024 Active (20 sources) Start: 04-04-2025 End: 04-11-2025 Start: 08-22-2024 End: 04-04-2025 Start: 08-25-2023 End: 08-12-2025 Start: 08-25-2023 Start: 08-25-2023 End: 04-11-2025 Start: 08-25-2023 End: 05-06-2025 Start: 10-31-2022 End: 05-20-2023 Start: 07-25-2019 End: 02-23-2021 Problems Active Problems Problem Classification Problem Date Documented Da te Episodic/Chronic Abdominal pain (20 sources) Epigastric pain; Translations: [Epigastric pain] 10-08-2016 Episodic Acute and unspecified renal failure (4 sources) Acute renal failure syndrome; Translations: [Acute kidney failure, unspecified] 08-12-2025 Episodic Acute bronchitis (20 sources) Acute bronchitis; [...] [Unspecified asthma with (acute) exacerbation] 08-17-2018 Chronic Bacterial infection; unspecified site (3 sources) Bacteremia caused by Gram-negative bacteria; Translations: [Bacteremia] Onset: 08-15-2025 08-14-2025 Episodic Chronic obstructive pulmonary disease and bronchiectasis [...] Translations: [Type 2 diabetes mellitus with hyperglycemia] Onset: 08-15-2025 09-14-2022 Chronic Diabetes mellitus without complication (20 sources) Type 2 diabetes mellitus; Translations: [Type 2 diabetes mellitus without complications] Onset: 02-19-2016 02-19-2016 Chronic Disorders of lipid metabolism (20 sources) Hypertriglyceridemi a; Translations: [Pure hyperglyceridemia] Chronic Disorders of teeth and jaw (20 sources) Edentulous; Translations: [Complete loss of teeth, unspecified cause, unspecified class] 07-25-2019 Chronic E Codes: Fall (9 sources) Fall; Translations: [Unspecified fall, initial encounter] [...] Chronic Immunizations and screening for infectious disease (10 sources) Contact with or exposure to other viral diseases; Translations: [Contact with and (suspected) exposure to other viral communicable diseases] 09-15-2023 Episodic Mood disorders (3 sources) Depressive [...] 08-31-2019 08-31-2019 Chronic Other connective tissue disease (11 sources) Plantar fasciitis of left foot; Translations: [...] [Wheezing] 04-22-2024 Episodic Other lower respiratory disease (10 sources) Dyspnea; Translations: [Shortness of breath] 11-20-2024 Episodic Other lower respiratory disease (9 sources) History of chronic obstructive airway disease; Translations: [Personal history of other diseases of the respiratory system] 04-12-2025 Episodic Other non-traumatic joint disorders (2 sources) Hip pain; Translations: [Pain in left hip] Episodic Other nutritional; endocrine; and metabolic disorders (10 sources) Hypomagnesemia; Translations: [Hypomagnesemia] 04-04-2025 Chronic Other nutritional; endocrine; and metabolic disorders (4 sources) Ketosis; Translations: [Other specified metabolic disorders] 08-12-2025 Chronic Other nutritional; endocrine; and metabolic disorders (17 sources) H/O: diabetes mellitus; Translations: [Personal history [...] 07-25-2025 07-29-2023 Chronic Pancreatic disorders (not diabetes) (20 sources) Pancreatitis; Translations: [Acute pancreatitis without necrosis or infection, unspecified] Onset: 05-15-2025 04-26-2025 Episodic Screening and history of mental health and substance abuse codes (17 sources) High alcohol level in blood; Translations: [Finding of alcohol in blood] 05-25-2023 Episodic Spondylosis; intervertebral disc disorders; other back problems (10 sources) Inflammation of sacroiliac joint; Translations: [Sacroiliitis, [...] dysrhythmias (20 sources) Palpitations; Translations: [Palpitations] Onset: 5 05-20-2023 Episodic Diabetes or abnormal glucose tolerance [...] conditions (not mental disorders or infectious disease) (11 sources) D-dimer above reference range; Translations: [Other [...] (20 sources) plantar fasciitis release 06-18-2022 Unclassified (12 sources) Admitted to alcohol detoxification center 05-25-2025 Results Test Name Value Interpretation Reference Range Facility L501.2276on 08-23-2025 Ionized Calcium 1.01 mmol/L Low 1.09-1.30 [facility] Comment on above: Performed By: #### L 501.2276, L501.6901 ####[facility] [address] [place], [address] Liver Profileon 08-16-2025 ALB Normal 3.5-5.0 [facility] Comment on above: Result Comment: Canc elled via OM: Order cancelled - Patient discharged Performed By: #### L 500.3400 ####[facility] [address] [place], [address] ALK PHOS Normal 35-104 [facility] Comment on above: Result Comment: Canc elled via OM: Order cancelled - Patient discharged Performed By: #### L 500.3400 ####[facility] [address] [place], [address] ALT Normal <=34 [facility] Comment on above: Result Comment: Canc elled via OM: Order cancelled - Patient discharged Performed By: #### L 500.3400 ####[facility] [address] [place], [address] AST Normal <=31 [facility] Comment on above: Result Comment: Canc elled via OM: Order cancelled - Patient discharged Performed By: #### L 500.3400 ####[facility] [address] [place], [address] D BILI Normal 0.00-0.30 [facility] Comment on above: Result Comment: Canc elled via OM: Order cancelled - Patient discharged Performed By: #### L 500.3400 ####[facility] [address] [place], [address] T BILI Normal 0.00-1.30 [facility] Comment on above: Result Comment: Canc elled via OM: Order cancelled - Patient discharged Performed By: #### L 500.3400 ####[facility] [address] [place], [address] T PROT Normal 5.9-8.4 [facility] Comment on above: Result Comment: Canc elled via OM: Order cancelled - Patient discharged Performed By: #### L 500.3400 ####[facility] [address] [place], [address] Anion gap in Serum or Plasma Ordered By: Zev Tucker on 08-15-2025 Anion gap [Moles/Vol] 11 mmol/L 5-15 [facility] BUN/creatinine ratioOrdered By: Zev Tucker on 08-15-2025 Urea nitrogen/Creatinine [Mass ratio] 9.5 mg/mg Low 10- [facility] Basic Metabolic Profile (BMP )on 08-15-2025 BUN/CRE 9.5 RATIO Low - [facility] Comment on above: Performed By: #### L 500.3400, L500.2500 ####[facility] [address] [place], [address] Calcium [Mass/Vol] 8.1 mg/dL Normal 7.6-11.0 [facility] Comment on above: Performed By: #### L 500.3400, L500.2500 ####[facility] [address] [place], [address] Chloride [Moles/Vol] 98 mmol/L Normal 98-108 [facility] Comment on above: Performed By: #### L 500.3400, L500.2500 ####[facility] [address] [place], [address] CO2 [Moles/Vol] 31.5 mmol/L Normal 21.0-32.0 [facility] Comment on above: Performed By: #### L 500.3400, L500.2500 ####[facility] [address] [place], [address] Creatinine [Mass/Vol] 0.39 mg/dL Low 0.70-1.20 [facility] Comment on above: Performed By: #### L 500.3400, L500.2500 ####[facility] [address] [place], [address] ECRCL 149.83 ml/min Normal 50-250 [facility] Comment on above: Performed By: #### L 500.3400, L500.2500 ####[facility] [address] [place], [address] GAP 11 Normal 5-15 [facility] Comment on above: Performed By: #### L 500.3400, L500.2500 ####[facility] [address] [place], [address] GFR/1.73 sq M.predicted among non-blacks MDRD (S/P/Bld) [Vol rate/Area] 123 mL/min/{1.73_m2} Normal >60 [facility] Comment on above: Result Comment: mL/m in/1.73m2 CKD-EPI Creatinine Equation (2020) Performed By: #### L 500.3400, L500.2500 ####[facility] [address] [place], [address] Glucose [Mass/Vol] 162 mg/dL High 70-99 [facility] Comment on above: Performed By: #### L 500.3400, L500.2500 ####[facility] [address] [place], [address] Potassium [Moles/Vol] 3.4 mmol/L Normal 3.3-5.1 [facility] Comment on above: Performed By: #### L 500.3400, L500.2500 ####[facility] [address] [place], [address] Sodium [Moles/Vol] 140 mmol/L Normal 133-145 [facility] Comment on above: Performed By: #### L 500.3400, L500.2500 ####[facility] [address] [place], [address] Urea nitrogen [Mass/Vol] 4 mg/dL Normal 4-19 [facility] Comment on above: Performed By: #### L 500.3400, L500.2500 ####[facility] [address] [place], [address] Bedside Glucoseon 08-15-2025 FINGERSTICK GLU 241 mg/dL High 74-106 [facility] Comment on above: Result Comment: CHAUNCEY GEMENT OF PATIENT CARE PER NURSING PROTOCOL Performed By: #### L 501.080 ####[facility] [address] [place], [address] FINGERSTICK GLU 268 mg/dL High -106 [facility] Comment on above: Result Comment: CHAUNCEY GEMENT OF PATIENT CARE PER NURSING PROTOCOL Performed By: #### L 501.080 ####[facility] [address] [place], [address] FINGERSTICK GLU 179 mg/dL High -106 [facility] Comment on above: Result Comment: CHAUNCEY GEMENT OF PATIENT CARE PER NURSING PROTOCOL Performed By: #### L 501.080 ####[facility] [address] [place], [address] Bilirubin directOrdered By: Zev Tucker on 08-15-2025 Bilirubin.direct [Mass/Vol] 0.72 mg/dL High 0.00-0.30 [facility] Bilirubin, totalOrdered By: Zev Tucker on 08-15-2025 Bilirubin [Mass/Vol] 1.19 mg/dL 0.00-1.30 [facility] Carbon dioxide, total [Moles /volume] in Central venous bloodOrdered By: Zev Tucker on 08-15-2025 CO2 [Moles/Vol] 31.5 mmol/L 21.0-32.0 [facility] Chloride assayOrdered By: Maria Antonia Tucker on 08-15-2025 Chloride [Moles/Vol] 98 mmol/L 98-108 [facility] Culture, Blood (WB)on 2024 CUB Normal [facility] Comment on above: Performed By: #### L 500.2500, L501.2300, M200.1000 ####[facility] [address] [place], [address] Discharge Instructionon 07-30 Discharge Instruction Normal [facility] Glomerular filtration rate ( GFR) estimation/1.73 sq m using serum, plasma, or whole bOrdered By: Zev Tucker on 08-15-2025 GFR/1.73 sq M.predicted among non-blacks MDRD (S/P/Bld) [Vol rate/Area] 123 mL/min/{1.73_m2} >60 [facility] Gl[facility] at [facility] deOrdered By: Zev Tucker on 08-15-2025 Glucose [Mass/Vol] 241 mg/dL High 74-106 [facility] Liver Profileon 08-15-2025 Albumin [Mass/Vol] 3.1 g/dL Low 3.5-5.0 [facility] Comment on above: Performed By: #### L 500.3400, L500.2500 ####[facility] [address] [place], [address] ALK PHOS 344 U/L High 35-104 [facility] Comment on above: Performed By: #### L 500.3400, L500.2500 ####[facility] [facility] [address] [place], [address] ALT [Catalytic activity/Vol] 37 U/L High <=34 [facility] Comment on above: Performed By: #### L 500.3400, L500.2500 ####[facility] [address] [place], [address] AST [Catalytic activity/Vol] 111 U/L High <=31 [facility] Comment on above: Performed By: #### L 500.3400, L500.2500 ####[facility] [address] [place], [address] Bilirubin [Mass/Vol] 1.19 mg/dL Normal 0.00-1.30 [facility] Comment on above: Performed By: #### L 500.3400, L500.2500 ####[facility] [address] [place], [address] Bilirubin.direct [Mass/Vol] 0.72 mg/dL High 0.00-0.30 [facility] Comment on above: Performed By: #### L 500.3400, L500.2500 ####[facility] [address] [place], [address] Globulin (S) [Mass/Vol] 2.4 g/dL Normal 2.2-4.2 [facility] Comment on above: Performed By: #### L 500.3400, L500.2500 ####[facility] [address] [place], [address] T PROT 5.4 g/dL Low 5.9-8.4 [facility] Comment on above: Performed By: #### L 500.3400, L500.2500 ####[facility] [address] [place], [address] Modified Barium Swallow Stud yon 08-15-2025 Modified Barium Swallow Study Normal [facility] No Panel InformationOrdered By: Zev Tucker on 08-15-2025 111 U/L High <32 [facility] Potassium measurement (mass/ volume)Ordered By: Zev Tucker on 08-15-2025 Potassium (Unsp spec) [Mass/Vol] 3.4 mmol/L 3.3-5.1 [facility] Serum creatinine measurement (mass/volume)Ordered By: Zev Tucker on 08-15-2025 Creatinine [Mass/Vol] 0.39 mg/dL Low 0.70-1.20 [facility] Serum globulin measurementOr dered By: Zev Tucker on 08-15-2025 Globulin (S) [Mass/Vol] 2.4 g/dL 2.2-4.2 [facility] Serum glucose measurement (m ass/volume)Ordered By: Zev Tucker on 08-15-2025 Glucose [Mass/Vol] 162 mg/dL High 70-99 [facility] Serum or plasma alanine wilkerson otransferase (ALT) measurementOrdered By: Zev Tucker on 08-15-2025 ALT [Catalytic activity/Vol] 37 U/L High <35 [facility] Serum or plasma albumin alphonso urement (mass/volume)Ordered By: Zev Tucker on 08-15-2025 Albumin [Mass/Vol] 3.1 g/dL Low 3.5-5.0 [facility] Serum or plasma alkaline trinity sphatase measurementOrdered By: Zev Tucker on 08-15-2025 ALP [Catalytic activity/Vol] 344 U/L High 35-104 [facility] Serum or plasma calcium alphonso urement (mass/volume)Ordered By: Zev Tucker on 08-15-2025 Calcium [Mass/Vol] 8.1 mg/dL 7.6-11.0 [facility] Serum or plasma urea nitroge n measurement (mass/volume)Ordered By: Zev Tucker on 08-15-2025 Urea nitrogen [Mass/Vol] 4 mg/dL 4-19 [facility] Sodium levelOrdered By: Tessa Tucker on 08-15-2025 Sodium [Moles/Vol] 140 mmol/L 133-145 [facility] Total proteinOrdered By: Candice Tucker on 08-15-2025 Protein [Mass/Vol] 5.4 g/dL Low 5.9-8.4 [facility] Basic Metabolic Profile (BMP )on 08-14-2025 BUN/CRE 7.8 RATIO Low 10-20 [facility] Comment on above: Performed By: #### L 500.3400, L501.5200, L500.2500 ####[facility] [address] [place], [address] Calcium [Mass/Vol] 7.8 mg/dL Normal 7.6-11.0 [facility] Comment on above: Performed By: #### L 500.3400, L501.5200, L500.2500 ####[facility] [address] [place], [address] Chloride [Moles/Vol] 96 mmol/L Low 98-108 [facility] Comment on above: Performed By: #### L 500.3400, L501.5200, L500.2500 ####[facility] [address] [place], [address] CO2 [Moles/Vol] 30.8 mmol/L Normal 21.0-32.0 [facility] Comment on above: Performed By: #### L 500.3400, L501.5200, L500.2500 ####[facility] [address] [place], [address] Creatinine [Mass/Vol] 0.44 mg/dL Low 0.70-1.20 [facility] Comment on above: Performed By: #### L 500.3400, L501.5200, L500.2500 ####[facility] [address] [place], [address] ECRCL 135.02 ml/min Normal 50-250 [facility] Comment on above: Performed By: #### L 500.3400, L501.5200, L500.2500 ####[facility] [address] [place], [address] GAP 13 Normal 5-15 [facility] Comment on above: Performed By: #### L 500.3400, L501.5200, L500.2500 ####[facility] [address] [place], [address] GFR/1.73 sq M.predicted among non-blacks MDRD (S/P/Bld) [Vol rate/Area] 119 mL/min/{1.73_m2} Normal >60 [facility] Comment on above: Result Comment: mL/m in/1.73m2 CKD-EPI Creatinine Equation (2020) Performed By: #### L 500.3400, L501.5200, L500.2500 ####[facility] [address] [place], [address] Glucose [Mass/Vol] 131 mg/dL High 70-99 [facility] Comment on above: Performed By: #### L 500.3400, L501.5200, L500.2500 ####[facility] [address] [place], [address] Potassium [Moles/Vol] 3.0 mmol/L Low 3.3-5.1 [facility] Comment on above: Performed By: #### L 500.3400, L501.5200, L500.2500 ####[facility] [address] [place], [address] Sodium [Moles/Vol] 140 mmol/L Normal 133-145 [facility] Comment on above: Performed By: #### L 500.3400, L501.5200, L500.2500 ####[facility] [address] [place], [address] Urea nitrogen [Mass/Vol] 3 mg/dL Low 4-19 [facility] Comment on above: Performed By: #### L 500.3400, L501.5200, L500.2500 ####[facility] [address] [place], [address] Bedside Glucoseon 08-14-2025 FINGERSTICK GLU 177 mg/dL High 74-106 [facility] Comment on above: Result Comment: CHAUNCEY GEMENT OF PATIENT CARE PER NURSING PROTOCOL Performed By: #### L 501.080 ####[facility] [address] [place], [address] FINGERSTICK GLU 112 mg/dL High 74-106 [facility] Comment on above: Result Comment: CHAUNCEY GEMENT OF PATIENT CARE PER NURSING PROTOCOL Performed By: #### L 501.080 ####[facility] [address] [place], [address] FINGERSTICK GLU 223 mg/dL High 74-106 [facility] Comment on above: Result Comment: CHAUNCEY GEMENT OF PATIENT CARE PER NURSING PROTOCOL Performed By: #### L 501.080 ####[facility] [address] [place], [address] FINGERSTICK GLU 138 mg/dL High 74-106 [facility] Comment on above: Result Comment: CHAUNCEY GEMENT OF PATIENT CARE PER NURSING PROTOCOL Performed By: #### L 501.080 ####[facility] [address] [place], [address] Consultation - Infectious Dx on 08-14-2025 Consultation - Infectious Dx Normal [facility] Liver Profileon 08-14-2025 Albumin [Mass/Vol] 3.1 g/dL Low 3.5-5.0 [facility] Comment on above: Performed By: #### L 500.3400, L501.5200, L500.2500 ####[facility] [address] [place], [address] ALK PHOS 229 U/L High 35-104 [facility] Comment on above: Performed By: #### L 500.3400, L501.5200, L500.2500 ####[facility] [address] [place], [address] ALT [Catalytic activity/Vol] 40 U/L High <=34 [facility] Comment on above: Performed By: #### L 500.3400, L501.5200, L500.2500 ####[facility] [address] [place], [address] AST [Catalytic activity/Vol] 110 U/L High <=31 [facility] Comment on above: Performed By: #### L 500.3400, L501.5200, L500.2500 ####[facility] [address] [place], [address] Bilirubin [Mass/Vol] 1.04 mg/dL Normal 0.00-1.30 [facility] Comment on above: Performed By: #### L 500.3400, L501.5200, L500.2500 ####[facility] [address] [place], [address] Bilirubin.direct [Mass/Vol] 0.66 mg/dL High 0.00-0.30 [facility] Comment on above: Performed By: #### L 500.3400, L501.5200, L500.2500 ####[facility] [address] [place], [address] Globulin (S) [Mass/Vol] 2.6 g/dL Normal 2.2-4.2 [facility] Comment on above: Performed By: #### L 500.3400, L501.5200, L500.2500 ####[facility] [address] [place], [address] T PROT 5.6 g/dL Low 5.9-8.4 [facility] Comment on above: Performed By: #### L 500.3400, L501.5200, L500.2500 ####[facility] [address] [place], [address] Magnesiumon 08-14-2025 Magnesium [Mass/Vol] 1.9 mg/dL Normal 1.5-2.2 [facility] Comment on above: Performed By: #### L 500.3400, L501.5200, L500.2500 ####[facility] [address] [place], [address] Magnesium measurement (mass/ volume)Ordered By: Zev Tucker on 08-14-2025 Magnesium (Unsp spec) [Mass/Vol] 1.9 mg/dL 1.5-2.2 [facility] Urine Cultureon 08-14-2025 URC Below infection leve l. Mixed Gram Pos Gram Neg Org [place] Count 1000-10,000 MIXC Mixed contaminants. Submit a new specimen if indicated. Normal [facility] Comment on above: Performed By: #### M 100.2200, M300.4600 ####[facility] [address] [place], [address] Absolute lymphocyte countOrd ered By: Zev Tucker on 08-13-2025 Lymphocytes Auto (Unsp spec) [#/Vol] 0.83 10*3/uL 0.83-4.51 [facility] Automated lymphocyte count a s percentage of total leukocytesOrdered By: Zev Tucker on 08-13-2025 Lymphocytes/100 WBC Auto (Unsp spec) 13.0 % Low 19-41 [facility] Basic Metabolic Profile (BMP )on 08-13-2025 BUN Normal 4-19 [facility] Comment on above: Result Comment: Patricia elled via OM: MD Ordered Performed By: #### L 500.2500 ####[facility] [address] [place], [address] BUN/CRE Normal 10-20 [facility] Comment on above: Result Comment: Patricia elled via OM: MD Ordered Performed By: #### L 500.2500 ####[facility] [address] [place], [address] Calcium Normal 7.6-11.0 [facility] Comment on above: Result Comment: Patricia elled via OM: MD Ordered Performed By: #### L 500.2500 ####[facility] [address] [place], [address] CL Normal 98-108 [facility] Comment on above: Result Comment: Patricia elled via OM: MD Ordered Performed By: #### L 500.2500 ####[facility] [address] [place], [address] CO2 Normal 21.0-32.0 [facility] Comment on above: Result Comment: Patricia elled via OM: MD Ordered Performed By: #### L 500.2500 ####[facility] [address] [place], [address] CREAT,SERUM Normal 0.70-1.20 [facility] Comment on above: Result Comment: Canc elled via OM: MD Ordered Performed By: #### L 500.2500 ####[facility] [address] [place], [address] eGFR Normal >60 [facility] Comment on above: Result Comment: Canc elled via OM: MD Ordered Performed By: #### L 500.2500 ####[facility] [address] [place], [address] GAP Normal 5-15 [facility] Comment on above: Result Comment: Canc elled via OM: MD Ordered Performed By: #### L 500.2500 ####[facility] [address] [place], [address] GLU Normal 70-99 [facility] Comment on above: Result Comment: Canc elled via OM: MD Ordered Performed By: #### L 500.2500 ####[facility] [address] [place], [address] Potassium Normal 3.3-5.1 [facility] Comment on above: Result Comment: Canc elled via OM: MD Ordered Performed By: #### L 500.2500 ####[facility] [address] [place], [address] Basic Metabolic Profile (BMP) Normal 133-145 [facility] Comment on above: Result Comment: Canc elled via OM: MD Ordered Performed By: #### L 500.2500 ####[facility] [address] [place], [address] BUN Normal 4-19 [facility] Comment on above: Result Comment: Canc elled via OM: MD Ordered Performed By: #### L 500.2500 ####[facility] [address] [place], [address] BUN/CRE Normal 10-20 [facility] Comment on above: Result Comment: Canc elled via OM: MD Ordered Performed By: #### L 500.2500 ####[facility] [address] [place], [address] Calcium Normal 7.6-11.0 [facility] Comment on above: Result Comment: Canc elled via OM: MD Ordered Performed By: #### L 500.2500 ####[facility] [address] [place], [address] CL Normal 98-108 [facility] Comment on above: Result Comment: Canc elled via OM: MD Ordered Performed By: #### L 500.2500 ####[facility] [address] [place], [address] CO2 Normal 21.0-32.0 [facility] Comment on above: Result Comment: Canc elled via OM: MD Ordered Performed By: #### L 500.2500 ####[facility] [address] [place], [address] CREAT,SERUM Normal 0.70-1.20 [facility] Comment on above: Result Comment: Canc elled via OM: MD Ordered Performed By: #### L 500.2500 ####[facility] [address] [place], [address] eGFR Normal >60 [facility] Comment on above: Result Comment: Canc elled via OM: MD Ordered Performed By: #### L 500.2500 ####[facility] [address] [place], [address] GAP Normal 5-15 [facility] Comment on above: Result Comment: Canc elled via OM: MD Ordered Performed By: #### L 500.2500 ####[facility] [address] [place], [address] GLU Normal 70-99 [facility] Comment on above: Result Comment: Canc elled via OM: MD Ordered Performed By: #### L 500.2500 ####[facility] [address] [place], [address] Potassium Normal 3.3-5.1 [facility] Comment on above: Result Comment: Patricia stacy via OM: Ordered Performed By: #### L 500.2500 ####[facility] [address] [place], [address] Basic Metabolic Profile (BMP) Normal 133-145 [facility] Comment on above: Result Comment: Patricia stacy via OM: Ordered Performed By: #### L 500.2500 ####[facility] [address] [place], [address] BUN/CRE 13.1 RATIO Normal 10-20 [facility] Comment on above: Performed By: #### L 501.5200, L500.2500, L100.0100, L501.9985 ####[facility] [address] [place], [address] Calcium [Mass/Vol] 6.7 mg/dL Low 7.6-11.0 [facility] Comment on above: Performed By: #### L 501.5200, L500.2500, L100.0100, L501.9985 ####[facility] [address] [place], [address] Chloride [Moles/Vol] 102 mmol/L Normal 98-108 [facility] Comment on above: Performed By: #### L 501.5200, L500.2500, L100.0100, L501.9985 ####[facility] [address] [place], [address] CO2 [Moles/Vol] 26.5 mmol/L Normal 21.0-32.0 [facility] Comment on above: Performed By: #### L 501.5200, L500.2500, L100.0100, L501.9985 ####[facility] [address] [place], [address] Creatinine [Mass/Vol] 0.64 mg/dL Low 0.70-1.20 [facility] Comment on above: Performed By: #### L 501.5200, L500.2500, L100.0100, L501.9985 ####[facility] [address] [place], [address] ECRCL 92.83 ml/min Normal 50-250 [facility] Comment on above: Performed By: #### L 501.5200, L500.2500, L100.0100, L501.9985 ####[facility] [address] [place], [address] GAP 12 Normal 5-15 [facility] Comment on above: Performed By: #### L 501.5200, L500.2500, L100.0100, L501.9985 ####[facility] [address] [place], [address] GFR/1.73 sq M.predicted among non-blacks MDRD (S/P/Bld) [Vol rate/Area] 109 mL/min/{1.73_m2} Normal >60 [facility] Comment on above: Result Comment: mL/m in/1.73m2 CKD-EPI Creatinine Equation (2020) Performed By: #### L 501.5200, L500.2500, L100.0100, L501.9985 ####[facility] [address] [place], [address] Glucose [Mass/Vol] 164 mg/dL High 70-99 [facility] Comment on above: Performed By: #### L 501.5200, L500.2500, L100.0100, L501.9985 ####[facility] [address] [place], [address] Potassium [Moles/Vol] 4.0 mmol/L Normal 3.3-5.1 [facility] Comment on above: Performed By: #### L 501.5200, L500.2500, L100.0100, L501.9985 ####[facility] [address] [place], [address] Sodium [Moles/Vol] 140 mmol/L Normal 133-145 [facility] Comment on above: Performed By: #### L 501.5200, L500.2500, L100.0100, L501.9985 ####[facility] [address] [place], [address] Urea nitrogen [Mass/Vol] 8 mg/dL Normal 4-19 [facility] Comment on above: Performed By: #### L 501.5200, L500.2500, L100.0100, L501.9985 ####[facility] [address] [place], [address] BUN/CRE 13.8 RATIO Normal 10-20 [facility] Comment on above: Performed By: #### L 500.2500 ####[facility] [address] [place], [address] Calcium [Mass/Vol] 7.2 mg/dL Low 7.6-11.0 [facility] Comment on above: Performed By: #### L 500.2500 ####[facility] [address] [place], [address] Chloride [Moles/Vol] 100 mmol/L Normal 98-108 [facility] Comment on above: Performed By: #### L 500.2500 ####[facility] [address] [place], [address] CO2 [Moles/Vol] 27.4 mmol/L Normal 21.0-32.0 [facility] Comment on above: Performed By: #### L 500.2500 ####[facility] [address] [place], [address] Creatinine [Mass/Vol] 0.90 mg/dL Normal 0.70-1.20 [facility] Comment on above: Performed By: #### L 500.2500 ####[facility] [address] [place], [address] ECRCL 62.03 ml/min Normal 50-250 [facility] Comment on above: Performed By: #### L 500.2500 ####[facility] [address] [place], [address] GAP 12 Normal 5-15 [facility] Comment on above: Performed By: #### L 500.2500 ####[facility] [address] [place], [address] GFR/1.73 sq M.predicted among non-blacks MDRD (S/P/Bld) [Vol rate/Area] 79 mL/min/{1.73_m2} Normal >60 [facility] Comment on above: Result Comment: mL/m in/1.73m2 CKD-EPI Creatinine Equation (2020) Performed By: #### L 500.2500 ####[facility] [address] [place], [address] Glucose [Mass/Vol] 162 mg/dL High 70-99 [facility] Comment on above: Performed By: #### L 500.2500 ####[facility] [address] [place], [address] Potassium [Moles/Vol] 3.9 mmol/L Normal 3.3-5.1 [facility] Comment on above: Performed By: #### L 500.2500 ####[facility] [address] [place], [address] Sodium [Moles/Vol] 139 mmol/L Normal 133-145 [facility] Comment on above: Performed By: #### L 500.2500 ####[facility] [address] [place], [address] Urea nitrogen [Mass/Vol] 12 mg/dL Normal 4-19 [facility] Comment on above: Performed By: #### L 500.2500 ####[facility] [address] [place], [address] Basophil percentageOrdered B y: Zev Tucker on 08-13-2025 Basophils/100 WBC (Bld) 0.2 % 0-1 [facility] Bedside Glucoseon 08-13-2025 FINGERSTICK GLU 130 mg/dL High 74-106 [facility] Comment on above: Result Comment: CHAUNCEY GEMENT OF PATIENT CARE PER NURSING PROTOCOL Performed By: #### L 501.080 ####[facility] [address] [place], [address] FINGERSTICK GLU 110 mg/dL High 74-106 [facility] Comment on above: Result Comment: CHAUNCEY GEMENT OF PATIENT CARE PER NURSING PROTOCOL Performed By: #### L 501.080 ####[facility] [address] [place], [address] FINGERSTICK GLU 130 mg/dL High 74-106 [facility] Comment on above: Result Comment: CHAUNCEY GEMENT OF PATIENT CARE PER NURSING PROTOCOL Performed By: #### L 501.080 ####[facility] [address] [place], [address] FINGERSTICK GLU 82 mg/dL Normal 74-106 [facility] Comment on above: Result Comment: CHAUNCEY GEMENT OF PATIENT CARE PER NURSING PROTOCOL Performed By: #### L 501.080 ####[facility] [address] [place], [address] FINGERSTICK GLU 78 mg/dL Normal 74-106 [facility] Comment on above: Result Comment: CHAUNCEY GEMENT OF PATIENT CARE PER NURSING PROTOCOL Performed By: #### L 501.080 ####[facility] [address] [place], [address] FINGERSTICK GLU 94 mg/dL Normal 74-106 [facility] Comment on above: Result Comment: CHAUNCEY GEMENT OF PATIENT CARE PER NURSING PROTOCOL Performed By: #### L 501.080 ####[facility] [address] [place], [address] FINGERSTICK GLU 118 mg/dL High 74-106 [facility] Comment on above: Result Comment: CHAUNCEY GEMENT OF PATIENT CARE PER NURSING PROTOCOL Performed By: #### L 501.080 ####[facility] [address] [place], [address] FINGERSTICK GLU 165 mg/dL High 74-106 [facility] Comment on above: Result Comment: CHAUNCEY GEMENT OF PATIENT CARE PER NURSING PROTOCOL Performed By: #### L 501.080 ####[facility] [address] [place], [address] FINGERSTICK GLU 171 mg/dL High 74-106 [facility] Comment on above: Result Comment: CHAUNCEY GEMENT OF PATIENT CARE PER NURSING PROTOCOL Performed By: #### L 501.080 ####[facility] [address] [place], [address] FINGERSTICK GLU 161 mg/dL High 74-106 [facility] Comment on above: Result Comment: CHAUNCEY GEMENT OF PATIENT CARE PER NURSING PROTOCOL Performed By: #### L 501.080 ####[facility] [address] [place], [address] FINGERSTICK GLU 147 mg/dL High 74-106 [facility] Comment on above: Result Comment: CHAUNCEY GEMENT OF PATIENT CARE PER NURSING PROTOCOL Performed By: #### L 501.080 ####[facility] [address] [place], [address] FINGERSTICK GLU 177 mg/dL High 74-106 [facility] Comment on above: Result Comment: CHAUNCEY GEMENT OF PATIENT CARE PER NURSING PROTOCOL Performed By: #### L 501.080 ####[facility] [address] [place], [address] FINGERSTICK GLU 156 mg/dL High 74-106 [facility] Comment on above: Result Comment: CHAUNCEY GEMENT OF PATIENT CARE PER NURSING PROTOCOL Performed By: #### L 501.080 ####[facility] [address] [place], [address] FINGERSTICK GLU 156 mg/dL High 74-106 [facility] Comment on above: Result Comment: CHAUNCEY GEMENT OF PATIENT CARE PER NURSING PROTOCOL Performed By: #### L 501.080 ####[facility] [address] [place], [address] FINGERSTICK GLU 175 mg/dL High 74-106 [facility] Comment on above: Result Comment: CHAUNCEY GEMENT OF PATIENT CARE PER NURSING PROTOCOL Performed By: #### L 501.080 ####[facility] [address] [place], [address] FINGERSTICK GLU 185 mg/dL High 74-106 [facility] Comment on above: Result Comment: CHAUNCEY GEMENT OF PATIENT CARE PER NURSING PROTOCOL Performed By: #### L 501.080 ####[facility] [address] [place], [address] Beta-Hydroxbytyrateon 2024 BETA-HYDROXYBUT 0.2 mmol/L Normal 0.0-0.3 [facility] Comment on above: Performed By: #### L 501.6901 ####[facility] [address] [place], [address] BETA-HYDROXYBUT 0.5 mmol/L High 0.0-0.3 [facility] Comment on above: Performed By: #### L 501.2276, L501.6901 ####[facility] [address] [place], [address] Beta-hydroxybutyrateOrdered By: Canelo Lorenzo on 08-13-2025 Beta hydroxybutyrate [Mass/Vol] 0.2 mmol/L 0.0-0.3 [facility] CBC W/Diff, Automatedon 07-30 Absolute Lymph 0.83 X10 3/uL Normal 0.83-4.51 [facility] Comment on above: Performed By: #### L 501.5200, L500.2500, L100.0100, L501.9985 ####[facility] [address] [place], [address] Absolute Neut 5.1 X10 3/uL Normal 2.0-7.7 [facility] Comment on above: Performed By: #### L 501.5200, L500.2500, L100.0100, L501.9985 ####[facility] [address] [place], [address] Basophils/100 WBC (Bld) 0.2 % Normal 0-1 [facility] Comment on above: Performed By: #### L 501.5200, L500.2500, L100.0100, L501.9985 ####[facility] [address] [place], [address] Eosinophils/100 WBC (Bld) 0.2 % Normal 0-5 [facility] Comment on above: Performed By: #### L 501.5200, L500.2500, L100.0100, L501.9985 ####[facility] [address] [place], [address] Erythrocyte distribution width (RBC) [Ratio] 13.5 % Normal 11.6-14.6 [facility] Comment on above: Performed By: #### L 501.5200, L500.2500, L100.0100, L501.9985 ####[facility] [address] [place], [address] Hematocrit (Bld) [Volume fraction] 30.8 % Low 37-47 [facility] Comment on above: Performed By: #### L 501.5200, L500.2500, L100.0100, L501.9985 ####[facility] [address] [place], [address] Hemoglobin (Bld) [Mass/Vol] 10.6 g/dL Low 12.0-15.0 [facility] Comment on above: Performed By: #### L 501.5200, L500.2500, L100.0100, L501.9985 ####[facility] [address] [place], [address] IG% 0.500 Normal 0.0-0.9 [facility] Comment on above: Result Comment: IG% - Immature Granulocytes (promyelocytes, myelocytes andmetamyelocytes) > 1% indicates that a LEFT SHIFT is Present. Performed By: #### L 501.5200, L500.2500, L100.0100, L501.9985 ####[facility] [address] [place], [address] Lymphocytes/100 WBC (Bld) 13.0 % Low 19-41 [facility] Comment on above: Performed By: #### L 501.5200, L500.2500, L100.0100, L501.9985 ####[facility] [address] [place], [address] MCH (RBC) [Entitic mass] 34.6 pg High 27.0-32.0 [facility] Comment on above: Performed By: #### L 501.5200, L500.2500, L100.0100, L501.9985 ####[facility] [address] [place], [address] MCHC (RBC) [Mass/Vol] 34.4 g/dL Normal 32-36 [facility] Comment on above: Performed By: #### L 501.5200, L500.2500, L100.0100, L501.9985 ####[facility] [address] [place], [address] MCV (RBC) [Entitic vol] 100.7 fL High 81-99 [facility] Comment on above: Performed By: #### L 501.5200, L500.2500, L100.0100, L501.9985 ####[facility] [address] [place], [address] Monocytes/100 WBC (Bld) 6.0 % Normal 0-10 [facility] Comment on above: Performed By: #### L 501.5200, L500.2500, L100.0100, L501.9985 ####[facility] [address] [place], [address] Neutrophils/100 WBC (Bld) 80.1 % High 47-70 [facility] Comment on above: Performed By: #### L 501.5200, L500.2500, L100.0100, L501.9985 ####[facility] [address] [place], [address] Nucleated RBC (Bld) [#/Vol] 0 10*3/uL Normal 0-5 [facility] Comment on above: Performed By: #### L 501.5200, L500.2500, L100.0100, L501.9985 ####[facility] [address] [place], [address] Platelet mean volume (Bld) [Entitic vol] 10.2 fL Normal 6.2-12.0 [facility] Comment on above: Performed By: #### L 501.5200, L500.2500, L100.0100, L501.9985 ####[facility] [address] [place], [address] Platelets (Bld) [#/Vol] 112 10*3/uL Low 150-450 [facility] Comment on above: Performed By: #### L 501.5200, L500.2500, L100.0100, L501.9985 ####[facility] [address] [place], [address] RBC (Bld) [#/Vol] 3.06 10*6/uL Low 4.2-5.4 [facility] Comment on above: Performed By: #### L 501.5200, L500.2500, L100.0100, L501.9985 ####[facility] [address] [place], [address] RDW SD 49.9 fl High 35.1-43.9 [facility] Comment on above: Performed By: #### L 501.5200, L500.2500, L100.0100, L501.9985 ####[facility] [address] [place], [address] WBC (Bld) [#/Vol] 6.4 10*3/uL Normal 4.4-11.0 [facility] Comment on above: Performed By: #### L 501.5200, L500.2500, L100.0100, L501.9985 ####[facility] [address] [place], [address] Eosinophil percentageOrdered By: Zev Tucker on 08-13-2025 Eosinophils/100 WBC (Bld) 0.2 % 0-5 [facility] Erythrocyte distribution wid th ratioOrdered By: Zev Tucker on 08-13-2025 Erythrocyte distribution width (RBC) [Ratio] 13.5 % 11.6-14.6 [facility] Erythrocyte distribution wid th standard deviationOrdered By: Zev Tucker on 08-13-2025 Erythrocyte distribution width (RBC) [Ratio] 49.9 fl High 35.1-43.9 [facility] Hematocrit Auto (Bld) [Volum e fraction]Ordered By: Zev Tucker on 08-13-2025 Hematocrit (Bld) [Volume fraction] 30.8 % Low 37-47 [facility] Hemoglobin A1con 08-13-2025 HbA1c (Bld) [Mass fraction] 5.2 % Normal <=5.6 [facility] Comment on above: Result Comment: Norm al < 5.7 % Prediabetic 5.7 - 6.4 % Diabetic >or= 6.5 % Please note range changes. Performed By: #### L 501.5200, L500.2500, L100.0100, L501.9985 ####[facility] [address] [place], [address] Hemoglobin A1c percentageOrd ered By: Zev Tucker on 08-13-2025 HbA1c (Bld) [Mass fraction] 5.2 % <5.7 [facility] Hemoglobin measurementOrdere d By: Zev Tucker on 08-13-2025 Hemoglobin (Bld) [Mass/Vol] 10.6 g/dL Low 12.0-15.0 [facility] Immature granulocytes/100 WB C Auto (Bld)Ordered By: Zev Tucker on 08-13-2025 Immature granulocytes/100 WBC (Bld) 0.500 % 0.0-0.9 [facility] Liver Profileon 08-13-2025 Albumin [Mass/Vol] 3.2 g/dL Low 3.5-5.0 [facility] Comment on above: Order Comment: MG1 6 M Performed By: #### L 500.3400 ####[facility] [address] [place], [address] ALK PHOS 102 U/L Normal 35-104 [facility] Comment on above: Order Comment: MG1 6 M Performed By: #### L 500.3400 ####[facility] [address] [place], [address] ALT [Catalytic activity/Vol] 49 U/L High <=34 [facility] Comment on above: Order Comment: MG1 6 M Performed By: #### L 500.3400 ####[facility] [address] [place], [address] AST [Catalytic activity/Vol] 158 U/L High <=31 [facility] Comment on above: Order Comment: MG1 6 M Performed By: #### L 500.3400 ####[facility] [address] [place], [address] Bilirubin [Mass/Vol] 0.72 mg/dL Normal 0.00-1.30 [facility] Comment on above: Order Comment: MG1 6 M Performed By: #### L 500.3400 ####[facility] [address] [place], [address] Bilirubin.direct [Mass/Vol] 0.43 mg/dL High 0.00-0.30 [facility] Comment on above: Order Comment: MG1 6 M Performed By: #### L 500.3400 ####[facility] [address] [place], [address] Globulin (S) [Mass/Vol] 2.4 g/dL Normal 2.2-4.2 [facility] Comment on above: Order Comment: MG1 6 M Performed By: #### L 500.3400 ####[facility] [address] [place], [address] T PROT 5.6 g/dL Low 5.9-8.4 [facility] Comment on above: Order Comment: MG1 6 M Performed By: #### L 500.3400 ####[facility] [address] [place], [address] MCV (mean corpuscular volume ) determinationOrdered By: Zev Tucker on 08-13-2025 MCV (RBC) [Entitic vol] 100.7 fL High 81-99 [facility] Magnesiumon 08-13-2025 Magnesium [Mass/Vol] 1.0 mg/dL Low 1.5-2.2 [facility] Comment on above: Result Comment: Crit ical Result(s) Called at: 0436 08/13/2025 by:ANTONI??Results read back by same. Performed By: #### L 501.5200 ####[facility] [address] [place], [place], [address] Magnesium [Mass/Vol] 0.9 mg/dL Invalid Interpretation Code 1.5-2.2 [facility] Comment on above: Result Comment: Crit ical Result(s) Called at 0554: by: OTTO GROVER??Results read back by same. Performed By: #### L 501.5200, L500.2500, L100.0100, L501.9985 ####[facility] [address] [place], [place], [address] Mean corpuscular hemoglobin (MCH) determinationOrdered By: Zev Tucker on 08-13-2025 MCH (RBC) [Entitic mass] 34.6 pg High 27.0-32.0 [facility] Monocyte percentageOrdered B y: Zev Tucker on 08-13-2025 Monocytes/100 WBC (Bld) 6.0 % 0-10 [facility] Neutrophil percentageOrdered By: Zev Tucker on 08-13-2025 Neutrophils/100 WBC (Bld) 80.1 % High 47-70 [facility] Phosphoruson 08-13-2025 Phosphate [Mass/Vol] 3.8 mg/dL Normal 2.7-4.5 [facility] Comment on above: Order Comment: Comme nts: add on to AM labs Performed By: #### L 501.2300 ####[facility] [address] [place], [place], [address] Platelet countOrdered By: Maria Antonia Tucker on 08-13-2025 Platelets (Bld) [#/Vol] 112 10*3/uL Low 150-450 [facility] RBC Auto (Bld) [#/Vol]Ordere d By: Zev Tucker on 08-13-2025 RBC (Bld) [#/Vol] 3.06 10*6/uL Low 4.2-5.4 [facility] White blood cell (WBC) count Ordered By: Zev Tucker on 08-13-2025 WBC (Bld) [#/Vol] 6.4 10*3/uL 4.4-11.0 [facility] Abdomen/Pelvis W IV Cont ONL Yon 08-12-2025 Abdomen/Pelvis W IV Cont ONLY Normal [facility] Absolute lymphocyte countOrd ered By: Wellington Rader on 08-12-2025 Lymphocytes Auto (Unsp spec) [#/Vol] 1.18 10*3/uL 0.83-4.51 [facility] Anion gap in Serum or Plasma Ordered By: Wellington Rader on 08-12-2025 Anion gap [Moles/Vol] 48 mmol/L High 04-12 [facility] BUN/creatinine ratioOrdered By: Wellington Rader on 08-12-2025 Urea nitrogen/Creatinine [Mass ratio] 10.8 mg/mg 09-17 [facility] Basic Metabolic Profile (BMP )on 08-12-2025 BUN/CRE 15.8 RATIO Normal 09-17 [facility] Comment on above: Performed By: #### L 500.2500, L501.2300, M200.1000 ####[facility] [address] [place], [address] Calcium [Mass/Vol] 7.3 mg/dL Low 7.6-11.0 [facility] Comment on above: Performed By: #### L 500.2500, L501.2300, M200.1000 ####[facility] [address] [place], [address] Chloride [Moles/Vol] 98 mmol/L Normal 98-108 [facility] Comment on above: Performed By: #### L 500.2500, L501.2300, M200.1000 ####[facility] [address] [place], [address] CO2 [Moles/Vol] 26.8 mmol/L Normal 21.0-32.0 [facility] Comment on above: Performed By: #### L 500.2500, L501.2300, M200.1000 ####[facility] [address] [place], [address] Creatinine [Mass/Vol] 0.97 mg/dL Normal 0.70-1.20 [facility] Comment on above: Performed By: #### L 500.2500, L501.2300, M200.1000 ####[facility] [address] [place], [address] ECRCL 57.55 ml/min Normal 50-250 [facility] Comment on above: Performed By: #### L 500.2500, L501.2300, M200.1000 ####[facility] [address] [place], [address] GAP 15 Normal 5-15 [facility] Comment on above: Performed By: #### L 500.2500, L501.2300, M200.1000 ####[facility] [address] [place], [address] GFR/1.73 sq M.predicted among non-blacks MDRD (S/P/Bld) [Vol rate/Area] 72 mL/min/{1.73_m2} Normal >60 [facility] Comment on above: Result Comment: mL/m in/1.73m2 CKD-EPI Creatinine Equation (2020) Performed By: #### L 500.2500, L501.2300, M200.1000 ####[facility] [address] [place], [address] Glucose [Mass/Vol] 179 mg/dL High 70-99 [facility] Comment on above: Performed By: #### L 500.2500, L501.2300, M200.1000 ####[facility] [address] [place], [address] Potassium [Moles/Vol] 3.4 mmol/L Normal 3.3-5.1 [facility] Comment on above: Performed By: #### L 500.2500, L501.2300, M200.1000 ####[facility] [address] [place], [address] Sodium [Moles/Vol] 140 mmol/L Normal 133-145 [facility] Comment on above: Performed By: #### L 500.2500, L501.2300, M200.1000 ####[facility] [address] [place], [address] Urea nitrogen [Mass/Vol] 15 mg/dL Normal 4-19 [facility] Comment on above: Performed By: #### L 500.2500, L501.2300, M200.1000 ####[facility] [address] [place], [address] BUN Normal - [facility] Comment on above: Result Comment: DUP ORDER Performed By: #### L 500.2500 ####[facility] [address] [place], [address] BUN/CRE Normal 10-20 [facility] Comment on above: Result Comment: DUP ORDER Performed By: #### L 500.2500 ####[facility] [address] [place], [address] Calcium Normal 7.6-11.0 [facility] Comment on above: Result Comment: DUP ORDER Performed By: #### L 500.2500 ####[facility] [address] [place], [address] CL Normal 98-108 [facility] Comment on above: Result Comment: DUP ORDER Performed By: #### L 500.2500 ####[facility] [address] [place], [address] CO2 Normal 21.0-32.0 [facility] Comment on above: Result Comment: DUP ORDER Performed By: #### L 500.2500 ####[facility] [address] [place], [address] CREAT,SERUM Normal 0.70-1.20 [facility] Comment on above: Result Comment: DUP ORDER Performed By: #### L 500.2500 ####[facility] [address] [place], [address] eGFR Normal >60 [facility] Comment on above: Result Comment: DUP ORDER Performed By: #### L 500.2500 ####[facility] [address] [place], [address] GAP Normal 5-15 [facility] Comment on above: Result Comment: DUP ORDER Performed By: #### L 500.2500 ####[facility] [address] [place], [address] GLU Normal 70-99 [facility] Comment on above: Result Comment: DUP ORDER Performed By: #### L 500.2500 ####[facility] [address] [place], [address] Potassium Normal 3.3-5.1 [facility] Comment on above: Result Comment: DUP ORDER Performed By: #### L 500.2500 ####[facility] [address] [place], [address] Basic Metabolic Profile (BMP) Normal 133-145 [facility] Comment on above: Result Comment: DUP ORDER Performed By: #### L 500.2500 ####[facility] [address] [place], [address] Bedside Glucoseon 08-12-2025 FINGERSTICK GLU 186 mg/dL High 74-106 [facility] Comment on above: Result Comment: CHAUNCEY GEMENT OF PATIENT CARE PER NURSING PROTOCOL Performed By: #### L 501.080 ####[facility] [address] [place], [address] FINGERSTICK GLU 171 mg/dL High 74-106 [facility] Comment on above: Result Comment: CHAUNCEY GEMENT OF PATIENT CARE PER NURSING PROTOCOL Performed By: #### L 501.080 ####[facility] [address] [place], [address] FINGERSTICK GLU 173 mg/dL High 74-106 [facility] Comment on above: Result Comment: CHAUNCEY GEMENT OF PATIENT CARE PER NURSING PROTOCOL Performed By: #### L 501.080 ####[facility] [address] [place], [address] FINGERSTICK GLU 211 mg/dL High 74-106 [facility] Comment on above: Result Comment: CHAUNCEY GEMENT OF PATIENT CARE PER NURSING PROTOCOL Performed By: #### L 501.080 ####[facility] [address] [place], [address] FINGERSTICK GLU 198 mg/dL High 74-106 [facility] Comment on above: Result Comment: CHAUNCEY GEMENT OF PATIENT CARE PER NURSING PROTOCOL Performed By: #### L 501.080 ####[facility] [address] [place], [address] FINGERSTICK GLU 234 mg/dL High 74-106 [facility] Comment on above: Result Comment: CHAUNCEY GEMENT OF PATIENT CARE PER NURSING PROTOCOL Performed By: #### L 501.080 ####[facility] [address] [place], [address] FINGERSTICK GLU 174 mg/dL High 74-106 [facility] Comment on above: Result Comment: CHAUNCEY GEMENT OF PATIENT CARE PER NURSING PROTOCOL Performed By: #### L 501.080 ####[facility] [address] [place], [address] FINGERSTICK GLU 158 mg/dL High 74-106 [facility] Comment on above: Result Comment: CHAUNCEY GEMENT OF PATIENT CARE PER NURSING PROTOCOL Performed By: #### L 501.080 ####[facility] [address] [place], [address] FINGERSTICK GLU 208 mg/dL High 74-106 [facility] Comment on above: Result Comment: CHAUNCEY GEMENT OF PATIENT CARE PER NURSING PROTOCOL Performed By: #### L 501.080 ####[facility] [address] [place], [address] FINGERSTICK GLU 232 mg/dL High 74-106 [facility] Comment on above: Result Comment: CHAUNCEY GEMENT OF PATIENT CARE PER NURSING PROTOCOL Performed By: #### L 501.080 ####[facility] [address] [place], [address] FINGERSTICK GLU 270 mg/dL High 74-106 [facility] Comment on above: Result Comment: CHAUNCEY GEMENT OF PATIENT CARE PER NURSING PROTOCOL Performed By: #### L 501.080 ####[facility] [address] [place], [address] Beta-Hydroxbytyrateon 2024 BETA-HYDROXYBUT 14.0 mmol/L High 0.0-0.3 [facility] Comment on above: Performed By: #### L 501.6901, L503.6005 ####[facility] [address] [place], [address] Beta-hydroxybutyrateOrdered By: Wellington Rader on 08-12-2025 Beta hydroxybutyrate [Mass/Vol] 14.0 mmol/L High 0.0-0.3 [facility] Bilirubin Test strip Ql (U)O rdered By: Zve Tucker on 08-12-2025 Bilirubin Ql (U) 1 mg/dL High Negative [facility] Bilirubin, totalOrdered By: Wellington Rader on 08-12-2025 Bilirubin [Mass/Vol] 1.22 mg/dL 0.00-1.30 [facility] Blood Gases by CPSon 025 Base excess Calc (Bld) [Moles/Vol] 0 mmol/L Normal -2 to +2 [facility] Comment on above: Performed By: #### L 9000.0800 ####[facility] [address] [place], [address] Blood Gas Type ART Normal [facility] Comment on above: Performed By: #### L 9000.0800 ####[facility] [address] [place], [address] CO2 [Moles/Vol] 23 mmol/L Normal [facility] Comment on above: Performed By: #### L 9000.0800 ####[facility] [address] [place], [address] HCO3 (Bld) [Moles/Vol] 22.2 mmol/L Normal 22-26 [facility] Comment on above: Performed By: #### L 9000.0800 ####[facility] [address] [place], [address] Mode Not entered Normal [facility] Comment on above: Performed By: #### L 9000.0800 ####[facility] [address] [place], [address] O2 Delivery Dev Not entered Normal [facility] Comment on above: Performed By: #### L 9000.0800 ####[facility] [address] [place], [address] pCO2 24.6 mmHg Low 35-45 [facility] Comment on above: Performed By: #### L 9000.0800 ####[facility] [address] [place], [address] pH (Bld) 7.56 [pH] High 7.35-7.45 [facility] Comment on above: Performed By: #### L 9000.0800 ####[facility] [address] [place], [address] PO2 63 mmHG Low 75-100 [facility] Comment on above: Performed By: #### L 9000.0800 ####[facility] [address] [place], [address] SITE Not entered Normal [facility] Comment on above: Performed By: #### L 9000.0800 ####[facility] [address] [place], [address] SO2 95 Normal 95-99 [facility] Comment on above: Performed By: #### L 9000.0800 ####[facility] [address] [place], [address] Blood base excess determinat ionOrdered By: Wellington Rader on 08-12-2025 Base excess Calc (BldV) [Moles/Vol] 0 mmol/L -2-2 [facility] Blood bicarbonate measuremen tOrdered By: Wellington Rader on 08-12-2025 HCO3 (Bld) [Moles/Vol] 22.2 mmol/L 22-26 [facility] Blood cultureOrdered By: Candice Tucker on 08-12-2025 Bacteria identified Cx Nom (Bld) Pasteurella multocida Abnormal [facility] Blood lymphocytes/100 leukoc ytesOrdered By: Wellington Rader on 08-12-2025 Lymphocytes/100 WBC (Bld) 10 % Low 19-41 [facility] Blood monocytes/100 leukocyt esOrdered By: Wellington Rader on 08-12-2025 Monocytes/100 WBC (Bld) 3 % 0-10 [facility] Blood segmented neutrophils/ 100 leukocytesOrdered By: Wellington Rader on 08-12-2025 Segmented neutrophils/100 WBC (Bld) 87 % High 47-70 [facility] CBC W/Diff, Automatedon 07-30 Absolute Lymph 1.18 X10 3/uL Normal 0.83-4.51 [facility] Comment on above: Performed By: #### L 100.0100, L501.2450, L500.4050 ####[facility] [address] [place], [address] Absolute Neut 10.3 X10 3/uL High 2.0-7.7 [facility] Comment on above: Performed By: #### L 100.0100, L501.2450, L500.4050 ####[facility] [address] [place], [address] CO2 (BldV) [Moles/Vol]Ordere d By: Wellington Rader on 08-12-2025 CO2 [Moles/Vol] 26 mmol/L 23-33 [facility] Carbon dioxide, total [Moles /volume] in Central venous bloodOrdered By: Wellington Rader on 08-12-2025 CO2 [Moles/Vol] 17.4 mmol/L Low 21.0-32.0 [facility] Chloride assayOrdered By: Penny Rader on 08-12-2025 Chloride [Moles/Vol] 73 mmol/L Low 98-108 [facility] Comprehensive Metabolic Prof ilon 08-12-2025 Albumin [Mass/Vol] 4.6 g/dL Normal 3.5-5.0 [facility] Comment on above: Performed By: #### L 100.0100, L501.2450, L500.4050 ####[facility] [address] [place], [address] Albumin/Globulin [Mass ratio] 1.3 {ratio} Normal 0.9-2.4 [facility] Comment on above: Performed By: #### L 100.0100, L501.2450, L500.4050 ####[facility] [address] [place], [address] ALK PHOS 135 U/L High 35-104 [facility] Comment on above: Performed By: #### L 100.0100, L501.2450, L500.4050 ####[facility] [address] [place], [address] ALT [Catalytic activity/Vol] 108 U/L High <=34 [facility] Comment on above: Performed By: #### L 100.0100, L501.2450, L500.4050 ####[facility] [address] [place], [address] AST [Catalytic activity/Vol] 408 U/L High <=31 [facility] Comment on above: Performed By: #### L 100.0100, L501.2450, L500.4050 ####[facility] [address] [place], [address] Bilirubin [Mass/Vol] 1.22 mg/dL Normal 0.00-1.30 [facility] Comment on above: Performed By: #### L 100.0100, L501.2450, L500.4050 ####[facility] [address] [place], [address] BUN/CRE 10.8 RATIO Normal 10-20 [facility] Comment on above: Performed By: #### L 100.0100, L501.2450, L500.4050 ####[facility] [address] [place], [address] Calcium [Mass/Vol] 9.2 mg/dL Normal 7.6-11.0 [facility] Comment on above: Performed By: #### L 100.0100, L501.2450, L500.4050 ####[facility] [address] [place], [address] Chloride [Moles/Vol] 73 mmol/L Invalid Interpretation Code 98-108 [facility] Comment on above: Result Comment: Crit ical Result(s) Called at: by:??Results read back bysame.Critical Result(s) Called to: Obie LEE (ER) by:Rolo??Results read back by same. Performed By: #### L 100.0100, L501.2450, L500.4050 ####[facility] [address] [place], [address] CO2 [Moles/Vol] 17.4 mmol/L Low 21.0-32.0 [facility] Comment on above: Performed By: #### L 100.0100, L501.2450, L500.4050 ####[facility] [address] [place], [address] Creatinine [Mass/Vol] 1.82 mg/dL High 0.70-1.20 [facility] Comment on above: Performed By: #### L 100.0100, L501.2450, L500.4050 ####[facility] [address] [place], [address] GAP 48 High 5-15 [facility] Comment on above: Performed By: #### L 100.0100, L501.2450, L500.4050 ####[facility] [address] [place], [address] GFR/1.73 sq M.predicted among non-blacks MDRD (S/P/Bld) [Vol rate/Area] 34 mL/min/{1.73_m2} Low >60 [facility] Comment on above: Result Comment: mL/m in/1.73m2 CKD-EPI Creatinine Equation (2020) Performed By: #### L 100.0100, L501.2450, L500.4050 ####[facility] [address] [place], [address] Globulin (S) [Mass/Vol] 3.6 g/dL Normal 2.2-4.2 [facility] Comment on above: Performed By: #### L 100.0100, L501.2450, L500.4050 ####[facility] [address] [place], [address] Glucose [Mass/Vol] 300 mg/dL High 70-99 [facility] Comment on above: Performed By: #### L 100.0100, L501.2450, L500.4050 ####[facility] [address] [place], [address] Potassium [Moles/Vol] 3.1 mmol/L Low 3.3-5.1 [facility] Comment on above: Performed By: #### L 100.0100, L501.2450, L500.4050 ####[facility] [address] [place], [address] Sodium [Moles/Vol] 139 mmol/L Normal 133-145 [facility] Comment on above: Performed By: #### L 100.0100, L501.2450, L500.4050 ####[facility] [address] [place], [address] T PROT 8.3 g/dL Normal 5.9-8.4 [facility] Comment on above: Performed By: #### L 100.0100, L501.2450, L500.4050 ####[facility] [address] [place], [address] Urea nitrogen [Mass/Vol] 20 mg/dL High 4-19 [facility] Comment on above: Performed By: #### L 100.0100, L501.2450, L500.4050 ####[facility] [address] [place], [address] Emergency Department Summary on 08-12-2025 Emergency Department Summary Normal [facility] Erythrocyte distribution wid th ratioOrdered By: Wellington Rader on 08-12-2025 Erythrocyte distribution width (RBC) [Ratio] 13.6 % 11.6-14.6 [facility] Erythrocyte distribution wid th standard deviationOrdered By: Wellington Rader on 08-12-2025 Erythrocyte distribution width (RBC) [Ratio] 50.9 fl High 35.1-43.9 [facility] Erythrocyte morphology asses smentOrdered By: Wellington Rader on 08-12-2025 RBC morphology finding Nom (Bld) NORM C+C NORMAL NORM C&C [facility] Glomerular filtration rate ( GFR) estimation/1.73 sq m using serum, plasma, or whole bOrdered By: Wellington Rader on 08-12-2025 GFR/1.73 sq M.predicted among non-blacks MDRD (S/P/Bld) [Vol rate/Area] 34 mL/min/{1.73_m2} Low >60 [facility] H AND P Exam - Hospitaliston 08-12-2025 H&P Exam - Hospitalist Normal [facility] Hematocrit Auto (Bld) [Volum e fraction]Ordered By: Wellington Rader on 08-12-2025 Hematocrit (Bld) [Volume fraction] 41.3 % 37-47 [facility] Hemoglobin measurementOrdere d By: Wellington Prasanth on 08-12-2025 Hemoglobin (Bld) [Mass/Vol] 14.1 g/dL 12.0-15.0 [facility] Influenza virus A and B and SARS-CoV-2 (COVID-19) and Respiratory syncytial virus RNAOrdered By: Wellingtonfortino Rader on 08-12-2025 SARS-CoV-2 (COVID-19) RNA ALLEY+probe Ql (Unsp spec) [facility] Ketones Test strip Ql (U)Ord ered By: Zev Tucker on 08-12-2025 Ketones Ql (U) 150 mg/dl Negative [facility] Lactic Acidon 08-12-2025 Lactate [Moles/Vol] 1.7 mmol/L Normal 0.0-2.0 [facility] Comment on above: Order Comment: Y Performed By: #### L 501.6901, L503.6005 ####[facility] [address] [place], [place], [address] Lipaseon 08-12-2025 Lipase [Catalytic activity/Vol] 1130 U/L High 13-75 [facility] Comment on above: Result Comment: Lucie schultz note:LIPASE revised reference range effective 23.New Lipase methodology. Expected to produce lower valuesthan the previous assay method.NEW Reference Range: 13 - 75 U/L Performed By: #### L 100.0100, L501.2450, L500.4050 ####[facility] [address] [place], [address] M100.019on 08-12-2025 M100.019 Negative Normal [facility] Comment on above: Performed By: #### M 100.019 ####[facility] [address] [place], [address] M100.677on 08-12-2025 M100.677 Negative Normal [facility] Comment on above: Performed By: #### M 100.678, M100.677 ####[facility] [address] [place], [address] M100.678on 08-12-2025 M100.678 Pending SARS-CoV-2 (COVID 19) Negative INFLUENZA A Negative INFLUENZA B Negative RSV PCR Negative Normal [facility] Comment on above: Performed By: #### M 100.678, M100.677 ####[facility] [address] [place], [address] M8200.1000on 08-12-2025 M8200.1000 Normal Reference Ran ge = Negative MRSA DNA Nose Ql ALLEY+probe GeneXpert Instrument, PCR method MRSA PCR MRSA NEGATIVE Normal [facility] Comment on above: Performed By: #### M 8200.1000 ####[facility] [address] [place], [address] MCV (mean corpuscular volume ) determinationOrdered By: Wellington Rader on 08-12-2025 MCV (RBC) [Entitic vol] 102.0 fL High 81-99 [facility] Mean corpuscular hemoglobin (MCH) determinationOrdered By: Wellington Rader on 08-12-2025 MCH (RBC) [Entitic mass] 34.8 pg High 27.0-32.0 [facility] Measurement, pHOrdered By: Pia Rader on 08-12-2025 pH (Unsp spec) 7.56 [pH] High 7.35-7.45 [facility] Mucus LM Ql (Urine sed)Order ed By: Zev Tucker on 08-12-2025 Mucus Ql (Urine sed) 0 SEEN /hpf [facility] Nasal methicillin resistant Staphylococcus aureus (MRSA) DNA detection by PCROrdered By: Zev Tucker on 08-12-2025 MRSA DNA ALLEY+probe Ql (Nose) [facility] Nitrite Test strip Ql (U)Ord ered By: Zev Tucker on 08-12-2025 Nitrite Ql (U) Negative Negative [facility] No Panel InformationOrdered By: Wellington Rader on 08-12-2025 GELACIO [facility] Not entered [facility] Not entered [facility] 408 U/L High <32 [facility] Phosphoruson 08-12-2025 Phosphate [Mass/Vol] 0.8 mg/dL Invalid Interpretation Code 2.7-4.5 [facility] Comment on above: Result Comment: Crit ical Result(s) Called GWYCOFF at: 2111 by:MINH??Results read back by same. Performed By: #### L 500.2500, L501.2300, M200.1000 ####[facility] [address] [place], [place], [address] Platelet countOrdered By: Penny Rader on 08-12-2025 Platelets (Bld) [#/Vol] 181 10*3/uL 150-450 [facility] Platelet estimateOrdered By: Wellington Rader on 08-12-2025 Platelets LM Ql (Bld) ADEQUATE ADEQ [facility] Potassium measurement (mass/ volume)Ordered By: Wellington Rader on 08-12-2025 Potassium (Unsp spec) [Mass/Vol] 3.1 mmol/L Low 3.3-5.1 [facility] ,Serum,hCG Quali.on 08-12-2025 HCG, SERUM QUAL Negative Normal [facility] Comment on above: Performed By: #### L 700.6800 ####[facility] [address] [place], [place], [address] Protein Test strip Ql (U)Ord ered By: Zev Tucker on 08-12-2025 Protein Ql (U) 100 mg/dl High Negative [facility] RBC Auto (Bld) [#/Vol]Ordere d By: Wellington Rader on 08-12-2025 RBC (Bld) [#/Vol] 4.05 10*6/uL Low 4.2-5.4 [facility] Ihix-ngv-8Rozrpoz By: Rajesh Tucker on 08-12-2025 SARS-CoV-2 (COVID-19) RNA ALLEY+probe Ql (Unsp spec) [facility] Serum beta-hCG test, qualita tiveOrdered By: Wellington Rader on 08-12-2025 Beta HCG ( test) Ql Negative [facility] Serum creatinine measurement (mass/volume)Ordered By: Wellington Rader on 08-12-2025 Creatinine [Mass/Vol] 1.82 mg/dL High 0.70-1.20 [facility] Serum globulin measurementOr dered By: Wellington Rader on 08-12-2025 Globulin (S) [Mass/Vol] 3.6 g/dL 2.2-4.2 [facility] Serum glucose measurement (m ass/volume)Ordered By: Wellington Rader on 08-12-2025 Glucose [Mass/Vol] 300 mg/dL High 70-99 [facility] Serum or plasma alanine wilkerson otransferase (ALT) measurementOrdered By: Wellington Rader on 08-12-2025 ALT [Catalytic activity/Vol] 108 U/L High <35 [facility] Serum or plasma albumin alphonso urement (mass/volume)Ordered By: Wellington Rader on 08-12-2025 Albumin [Mass/Vol] 4.6 g/dL 3.5-5.0 [facility] Serum or plasma albumin/glob ulin mass ratioOrdered By: Wellington Rader on 08-12-2025 Albumin/Globulin [Mass ratio] 1.3 {ratio} 0.9-2.4 [facility] Serum or plasma alkaline trinity sphatase measurementOrdered By: Wellington Rader on 08-12-2025 ALP [Catalytic activity/Vol] 135 U/L High 35-104 [facility] Serum or plasma calcium alphonso urement (mass/volume)Ordered By: Wellington Rader on 08-12-2025 Calcium [Mass/Vol] 9.2 mg/dL 7.6-11.0 [facility] Serum or plasma urea nitroge n measurement (mass/volume)Ordered By: Wellington Rader on 08-12-2025 Urea nitrogen [Mass/Vol] 20 mg/dL High 4-19 [facility] Sodium levelOrdered By: Dontae Rader on 08-12-2025 Sodium [Moles/Vol] 139 mmol/L 133-145 [facility] Squamous epithelial cells de tection in urine sediment by light microscopyOrdered By: Zev Tucker on 08-12-2025 Epithelial cells.squamous LM Ql (Urine sed) 0-5 SEEN /hpf 5-10 [facility] Strep pneumoniae Antig(UR,CS F)on 08-12-2025 STPAG Normal [facility] Comment on above: Performed By: #### M 100.2200, M300.4600 ####[facility] [address] [place], [place], [id number] Streptococcus pyogenes rRNA detection in throat by DNA probeOrdered By: Wellington Rader on 08-12-2025 S. pyogenes rRNA Probe Ql (Throat) [facility] Total carbon dioxide measure mentOrdered By: Wellington Rader on 08-12-2025 CO2 [Moles/Vol] 23 mmol/L [facility] Total cell countOrdered By: Wellington Rader on 08-12-2025 Cells counted Molgen (Bld/Tiss) [#] 100 MANUAL DIFF [facility] Total proteinOrdered By: Jimbo Rader on 08-12-2025 Protein [Mass/Vol] 8.3 g/dL 5.9-8.4 [facility] Urinalysis, Completeon 08-12 EPI,SQUAMOUS 0-5 SEEN Normal 5-10 [facility] Comment on above: Order Comment: CLEAN CATCH Performed By: #### L 400.0001 ####[facility] [address] [place], [address] RBC 5-10 SEEN Normal 0-5 [facility] Comment on above: Order Comment: CLEAN CATCH Performed By: #### L 400.0001 ####[facility] [address] [place], [address] WBC 0-5 SEEN Normal 0-5 [facility] Comment on above: Order Comment: CLEAN CATCH Performed By: #### L 400.0001 ####[facility] [address] [place], [address] BACTERIA 0 SEEN Normal None Seen [facility] Comment on above: Order Comment: CLEAN CATCH Performed By: #### L 400.0001 ####[facility] [address] [place], [address] Mucus Ql (Urine sed) 0 SEEN Normal [facility] Comment on above: Order Comment: CLEAN CATCH Performed By: #### L 400.0001 ####[facility] [address] [place], [place], [id number] Urine clarityOrdered By: Candice Tucker on 08-12-2025 Clarity (U) Clear Clear [facility] Urine color determinationOrd ered By: Zev Tucker on 08-12-2025 Color (U) Yellow Yellow [facility] Urine cultureOrdered By: Candice Tucker on 08-12-2025 Bacteria identified Cx Nom (U) Mixed Gram Pos & Gram Neg Org Abnormal [facility] Urine glucose detectionOrder ed By: Zev Tucker on 08-12-2025 Glucose Ql (U) 50 mg/dl High Normal [facility] Urine leukocyte esterase det ection by dipstickOrdered By: Zev Tucker on 08-12-2025 Leukocyte esterase Test strip Ql (U) Negative Negative [facility] Urine pHOrdered By: Zev Tucker on 08-12-2025 pH (U) 6.5 [pH] 5.0 - 8.0 [facility] Urine sediment bacteria coun t by microscopy (number/high power field)Ordered By: Zev Tucker on 08-12-2025 Bacteria LM.HPF (Urine sed) [#/Area] 0 /[HPF] None Seen [facility] Urine specific gravity measu rementOrdered By: Zev Tucker on 08-12-2025 Specific gravity (U) [Rel density] 1.010 1.002-1.030 [facility] Urine urobilinogen measureme ntOrdered By: Zev Tucker on 08-12-2025 Urobilinogen Ql (U) 4 mg/dl High Normal [facility] Venous Blood Gason Blood Gas Type GELACIO Normal [facility] Comment on above: Performed By: #### L 9000.0810 ####[facility] [address] [place], [address] CO2 [Moles/Vol] 26 mmol/L Normal 23-33 [facility] Comment on above: Performed By: #### L 9000.0810 ####[facility] [address] [place], [address] HCO3 (Bld) [Moles/Vol] 25 mmol/L Normal 22-26 [facility] Comment on above: Performed By: #### L 9000.0810 ####[facility] [address] [place], [address] O2 Delivery Dev Not entered [facility] Comment on above: Performed By: #### L 9000.0810 ####[facility] [address] [place], [address] SITE Not entered [facility] Comment on above: Performed By: #### L 9000.0810 ####[facility] [address] [place], [address] VBG BE 2 mmol/L Normal -1.0-3.5 [facility] Comment on above: Performed By: #### L 9000.0810 ####[facility] [address] [place], [address] VBG pCO2 32.2 mmHg Low 41-51 [facility] Comment on above: Performed By: #### L 9000.0810 ####[facility] [address] [place], [address] VBG pH 7.49 High 7.32-7.42 [facility] Comment on above: Performed By: #### L 9000.0810 ####[facility] [address] [place], [place], [address] VBG PO2 52 mmHg High 25-40 [facility] Comment on above: Performed By: #### L 9000.0810 ####[facility] [address] [place], [address] VBG SO2 90 High 50-70 [facility] Comment on above: Performed By: #### L 9000.0810 ####[facility] [address] [place], [place], [address] Venous blood base excess alexis surementOrdered By: Wellington Rader on 08-12-2025 Base excess Calc (BldV) [Moles/Vol] 2 mmol/L -1.0-3.5 [facility] Venous blood bicarbonate alexis surementOrdered By: Wellington Rader on 08-12-2025 HCO3 (Bld) [Moles/Vol] 25 mmol/L 22-26 [facility] Venous blood pH measurementO rdered By: Wellington Rader on 08-12-2025 pH (BldV) 7.49 [pH] High 7.32-7.42 [facility] Venous blood partial pressur e of carbon dioxide measurementOrdered By: Wellington Rader on 08-12-2025 CO2 (BldV) [Partial pressure] 32.2 mm[Hg] Low 41-51 [facility] Venous blood partial pressur e of oxygen measurementOrdered By: Wellington Rader on 08-12-2025 Oxygen (BldV) [Partial pressure] 52 mm[Hg] High 25-40 [facility] White blood cell (WBC) count Ordered By: Wellington Rader on 08-12-2025 WBC (Bld) [#/Vol] 11.8 10*3/uL High 4.4-11.0 [facility] [facility] White blood cell countOrdere d By: Zev Tucker on 08-12-2025 White blood cell count 0-5 SEEN /hpf 0-5 [facility] CBC W/Diff, Automatedon 08-2 4-2025 Absolute Neut Normal 2.0-7.7 [facility] Comment on above: Result Comment: Canc elled via OM: Order cancelled - Patient discharged Performed By: #### L 100.0100, L500.4050 ####[facility] [address] [place], [address] HCT Normal 37-47 [facility] Comment on above: Result Comment: Canc elled via OM: Order cancelled - Patient discharged Performed By: #### L 100.0100, L500.4050 ####[facility] [address] [place], [address] HGB Normal 12.0-15.0 [facility] Comment on above: Result Comment: Canc elled via OM: Order cancelled - Patient discharged Performed By: #### L 100.0100, L500.4050 ####[facility] [address] [place], [address] MCH Normal 27.0-32.0 [facility] Comment on above: Result Comment: Canc elled via OM: Order cancelled - Patient discharged Performed By: #### L 100.0100, L500.4050 ####[facility] [address] [place], [address] MCHC Normal 32-36 [facility] Comment on above: Result Comment: Canc elled via OM: Order cancelled - Patient discharged Performed By: #### L 100.0100, L500.4050 ####[facility] [address] [place], [address] MCV Normal 81-99 [facility] Comment on above: Result Comment: Canc elled via OM: Order cancelled - Patient discharged Performed By: #### L 100.0100, L500.4050 ####[facility] [address] [place], [address] NEUT% Normal 47-70 [facility] Comment on above: Result Comment: Canc elled via OM: Order cancelled - Patient discharged Performed By: #### L 100.0100, L500.4050 ####[facility] [address] [place], [address] PLT Normal 150-450 [facility] Comment on above: Result Comment: Canc elled via OM: Order cancelled - Patient discharged Performed By: #### L 100.0100, L500.4050 ####[facility] [address] [place], [address] RBC Normal 4.2-5.4 [facility] Comment on above: Result Comment: Canc elled via OM: Order cancelled - Patient discharged Performed By: #### L 100.0100, L500.4050 ####[facility] [address] [place], [address] RDW CV Normal 11.6-14.6 [facility] Comment on above: Result Comment: Canc elled via OM: Order cancelled - Patient discharged Performed By: #### L 100.0100, L500.4050 ####[facility] [address] [place], [address] RDW SD Normal 35.1-43.9 [facility] Comment on above: Result Comment: Canc elled via OM: Order cancelled - Patient discharged Performed By: #### L 100.0100, L500.4050 ####[facility] [address] [place], [address] WBC Normal 4.4-11.0 [facility] Comment on above: Result Comment: Canc elled via OM: Order cancelled - Patient discharged Performed By: #### L 100.0100, L500.4050 ####[facility] [address] [place], [address] Comprehensive Metabolic Prof ilon 07-22-2025 ALB Normal 3.5-5.0 [facility] Comment on above: Result Comment: Canc elled via OM: Order cancelled - Patient discharged Performed By: #### L 100.0100, L500.4050 ####[facility] [address] [place], [address] ALK PHOS Normal 35-104 [facility] Comment on above: Result Comment: Canc elled via OM: Order cancelled - Patient discharged Performed By: #### L 100.0100, L500.4050 ####[facility] [address] [place], [address] ALT Normal <=34 [facility] Comment on above: Result Comment: Canc elled via OM: Order cancelled - Patient discharged Performed By: #### L 100.0100, L500.4050 ####[facility] [address] [place], [address] AST Normal <=31 [facility] Comment on above: Result Comment: Canc elled via OM: Order cancelled - Patient discharged Performed By: #### L 100.0100, L500.4050 ####[facility] [address] [place], [address] BUN Normal 4-19 [facility] Comment on above: Result Comment: Canc elled via OM: Order cancelled - Patient discharged Performed By: #### L 100.0100, L500.4050 ####[facility] [address] [place], [address] BUN/CRE Normal 10-20 [facility] Comment on above: Result Comment: Canc elled via OM: Order cancelled - Patient discharged Performed By: #### L 100.0100, L500.4050 ####[facility] [address] [place], [address] Calcium Normal 7.6-11.0 [facility] Comment on above: Result Comment: Canc elled via OM: Order cancelled - Patient discharged Performed By: #### L 100.0100, L500.4050 ####[facility] [address] [place], [address] CL Normal 98-108 [facility] Comment on above: Result Comment: Canc elled via OM: Order cancelled - Patient discharged Performed By: #### L 100.0100, L500.4050 ####[facility] [address] [place], [address] CO2 Normal 21.0-32.0 [facility] Comment on above: Result Comment: Canc elled via OM: Order cancelled - Patient discharged Performed By: #### L 100.0100, L500.4050 ####[facility] [address] [place], [address] CREAT,SERUM Normal 0.70-1.20 [facility] Comment on above: Result Comment: Canc elled via OM: Order cancelled - Patient discharged Performed By: #### L 100.0100, L500.4050 ####[facility] [address] [place], [address] eGFR Normal >60 [facility] Comment on above: Result Comment: Canc elled via OM: Order cancelled - Patient discharged Performed By: #### L 100.0100, L500.4050 ####[facility] [address] [place], [address] GAP Normal 5-15 [facility] Comment on above: Result Comment: Canc elled via OM: Order cancelled - Patient discharged Performed By: #### L 100.0100, L500.4050 ####[facility] [address] [place], [address] GLU Normal 70-99 [facility] Comment on above: Result Comment: Canc elled via OM: Order cancelled - Patient discharged Performed By: #### L 100.0100, L500.4050 ####[facility] [address] [place], [address] Potassium Normal 3.3-5.1 [facility] Comment on above: Result Comment: Canc elled via OM: Order cancelled - Patient discharged Performed By: #### L 100.0100, L500.4050 ####[facility] [address] [place], [address] T BILI Normal 0.00-1.30 [facility] Comment on above: Result Comment: Canc elled via OM: Order cancelled - Patient discharged Performed By: #### L 100.0100, L500.4050 ####[facility] [address] [place], [address] T PROT Normal 5.9-8.4 [facility] Comment on above: Result Comment: Canc elled via OM: Order cancelled - Patient discharged Performed By: #### L 100.0100, L500.4050 ####[facility] [address] [place], [address] Comprehensive Metabolic Profil Normal 133-145 [facility] Comment on above: Result Comment: Canc elled via OM: Order cancelled - Patient discharged Performed By: #### L 100.0100, L500.4050 ####[facility] [address] [place], [address] CBC W/Diff, Automatedon 08-2 Absolute Neut Normal 2.0-7.7 [facility] Comment on above: Result Comment: Canc elled via OM: Order cancelled - Patient discharged Performed By: #### L 100.0100, L500.4050 ####[facility] [address] [place], [address] HCT Normal 37-47 [facility] Comment on above: Result Comment: Canc elled via OM: Order cancelled - Patient discharged Performed By: #### L 100.0100, L500.4050 ####[facility] [address] [place], [address] HGB Normal 12.0-15.0 [facility] Comment on above: Result Comment: Canc elled via OM: Order cancelled - Patient discharged Performed By: #### L 100.0100, L500.4050 ####[facility] [address] [place], [address] MCH Normal 27.0-32.0 [facility] Comment on above: Result Comment: Canc elled via OM: Order cancelled - Patient discharged Performed By: #### L 100.0100, L500.4050 ####[facility] [address] [place], [address] MCHC Normal 32-36 [facility] Comment on above: Result Comment: Canc elled via OM: Order cancelled - Patient discharged Performed By: #### L 100.0100, L500.4050 ####[facility] [address] [place], [address] MCV Normal 81-99 [facility] Comment on above: Result Comment: Canc elled via OM: Order cancelled - Patient discharged Performed By: #### L 100.0100, L500.4050 ####[facility] [address] [place], [address] NEUT% Normal 47-70 [facility] Comment on above: Result Comment: Canc elled via OM: Order cancelled - Patient discharged Performed By: #### L 100.0100, L500.4050 ####[facility] [address] [place], [address] PLT Normal 150-450 [facility] Comment on above: Result Comment: Canc elled via OM: Order cancelled - Patient discharged Performed By: #### L 100.0100, L500.4050 ####[facility] [address] [place], [address] RBC Normal 4.2-5.4 [facility] Comment on above: Result Comment: Canc elled via OM: Order cancelled - Patient discharged Performed By: #### L 100.0100, L500.4050 ####[facility] [address] [place], [address] RDW CV Normal 11.6-14.6 [facility] Comment on above: Result Comment: Canc elled via OM: Order cancelled - Patient discharged Performed By: #### L 100.0100, L500.4050 ####[facility] [address] [place], [address] RDW SD Normal 35.1-43.9 [facility] Comment on above: Result Comment: Canc elled via OM: Order cancelled - Patient discharged Performed By: #### L 100.0100, L500.4050 ####[facility] [address] [place], [address] WBC Normal 4.4-11.0 [facility] Comment on above: Result Comment: Canc elled via OM: Order cancelled - Patient discharged Performed By: #### L 100.0100, L500.4050 ####[facility] [address] [place], [address] Comprehensive Metabolic Prof ilon 07-21-2025 ALB Normal 3.5-5.0 [facility] Comment on above: Result Comment: Canc elled via OM: Order cancelled - Patient discharged Performed By: #### L 100.0100, L500.4050 ####[facility] [address] [place], [address] ALK PHOS Normal 35-104 [facility] Comment on above: Result Comment: Canc elled via OM: Order cancelled - Patient discharged Performed By: #### L 100.0100, L500.4050 ####[facility] [address] [place], [address] ALT Normal <=34 [facility] Comment on above: Result Comment: Canc elled via OM: Order cancelled - Patient discharged Performed By: #### L 100.0100, L500.4050 ####[facility] [address] [place], [address] AST Normal <=31 [facility] Comment on above: Result Comment: Canc elled via OM: Order cancelled - Patient discharged Performed By: #### L 100.0100, L500.4050 ####[facility] [address] [place], [address] BUN Normal 4-19 [facility] Comment on above: Result Comment: Canc elled via OM: Order cancelled - Patient discharged Performed By: #### L 100.0100, L500.4050 ####[facility] [address] [place], [address] BUN/CRE Normal 10-20 [facility] Comment on above: Result Comment: Canc elled via OM: Order cancelled - Patient discharged Performed By: #### L 100.0100, L500.4050 ####[facility] [address] [place], [address] Calcium Normal 7.6-11.0 [facility] Comment on above: Result Comment: Canc elled via OM: Order cancelled - Patient discharged Performed By: #### L 100.0100, L500.4050 ####[facility] [address] [place], [address] CL Normal 98-108 [facility] Comment on above: Result Comment: Canc elled via OM: Order cancelled - Patient discharged Performed By: #### L 100.0100, L500.4050 ####[facility] [address] [place], [address] CO2 Normal 21.0-32.0 [facility] Comment on above: Result Comment: Canc elled via OM: Order cancelled - Patient discharged Performed By: #### L 100.0100, L500.4050 ####[facility] [address] [place], [address] CREAT,SERUM Normal 0.70-1.20 [facility] Comment on above: Result Comment: Canc elled via OM: Order cancelled - Patient discharged Performed By: #### L 100.0100, L500.4050 ####[facility] [address] [place], [address] eGFR Normal >60 [facility] Comment on above: Result Comment: Canc elled via OM: Order cancelled - Patient discharged Performed By: #### L 100.0100, L500.4050 ####[facility] [address] [place], [address] GAP Normal 5-15 [facility] Comment on above: Result Comment: Canc elled via OM: Order cancelled - Patient discharged Performed By: #### L 100.0100, L500.4050 ####[facility] [address] [place], [address] GLU Normal 70-99 [facility] Comment on above: Result Comment: Canc elled via OM: Order cancelled - Patient discharged Performed By: #### L 100.0100, L500.4050 ####[facility] [address] [place], [address] Potassium Normal 3.3-5.1 [facility] Comment on above: Result Comment: Canc elled via OM: Order cancelled - Patient discharged Performed By: #### L 100.0100, L500.4050 ####[facility] [address] [place], [address] T BILI Normal 0.00-1.30 [facility] Comment on above: Result Comment: Canc elled via OM: Order cancelled - Patient discharged Performed By: #### L 100.0100, L500.4050 ####[facility] [address] [place], [address] T PROT Normal 5.9-8.4 [facility] Comment on above: Result Comment: Canc elled via OM: Order cancelled - Patient discharged Performed By: #### L 100.0100, L500.4050 ####[facility] [address] [place], [address] Comprehensive Metabolic Profil Normal 133-145 [facility] Comment on above: Result Comment: Canc elled via OM: Order cancelled - Patient discharged Performed By: #### L 100.0100, L500.4050 ####[facility] [address] [place], [address] Absolute lymphocyte countOrd ered By: Canelo Myers on 07-20-2025 Lymphocytes Auto (Unsp spec) [#/Vol] 0.83 10*3/uL 0.83-4.51 [facility] Anion gap in Serum or Plasma Ordered By: Canelo Myers on 07-20-2025 Anion gap [Moles/Vol] 10 mmol/L 5-15 [facility] Automated lymphocyte count a s percentage of total leukocytesOrdered By: Canelo Myers on 07-20-2025 Lymphocytes/100 WBC Auto (Unsp spec) 19.5 % 19-41 [facility] BUN/creatinine ratioOrdered By: Canelo Myers on 07-20-2025 Urea nitrogen/Creatinine [Mass ratio] 10.1 mg/mg 10-20 [facility] Basophil percentageOrdered B y: Canelo Myers on 07-20-2025 Basophils/100 WBC (Bld) 0.2 % 0-1 [facility] Bedside Glucoseon 07-20-2025 FINGERSTICK GLU 217 mg/dL High 74-106 [facility] Comment on above: Result Comment: CHAUNCEY WOODENT OF PATIENT CARE PER NURSING PROTOCOL Performed By: #### L 501.080 ####[facility] [address] [place], [address] FINGERSTICK GLU 111 mg/dL High 74-106 [facility] Comment on above: Result Comment: CHAUNCEY RIZO OF PATIENT CARE PER NURSING PROTOCOL Performed By: #### L 501.080 ####[facility] [address] [place], [address] Bilirubin, totalOrdered By: Canelo Myers on 07-20-2025 Bilirubin [Mass/Vol] 0.86 mg/dL 0.00-1.30 [facility] CBC W/Diff, Automatedon 06-30 Absolute Lymph 0.83 X10 3/uL Normal 0.83-4.51 [facility] Comment on above: Performed By: #### L 100.0100, L500.4050 ####[facility] [address] [place], [address] Absolute Neut 2.8 X10 3/uL Normal 2.0-7.7 [facility] Comment on above: Performed By: #### L 100.0100, L500.4050 ####[facility] [address] [place], [address] Basophils/100 WBC (Bld) 0.2 % Normal 0-1 [facility] Comment on above: Performed By: #### L 100.0100, L500.4050 ####[facility] [address] [place], [address] Eosinophils/100 WBC (Bld) 1.6 % Normal 0-5 [facility] Comment on above: Performed By: #### L 100.0100, L500.4050 ####[facility] [address] [place], [address] Erythrocyte distribution width (RBC) [Ratio] 15.2 % High 11.6-14.6 [facility] Comment on above: Performed By: #### L 100.0100, L500.4050 ####[facility] [address] [place], [address] Hematocrit (Bld) [Volume fraction] 29.2 % Low 37-47 [facility] Comment on above: Performed By: #### L 100.0100, L500.4050 ####[facility] [address] [place], [address] Hemoglobin (Bld) [Mass/Vol] 9.6 g/dL Low 12.0-15.0 [facility] Comment on above: Performed By: #### L 100.0100, L500.4050 ####[facility] [address] [place], [address] IG% 0.200 Normal 0.0-0.9 [facility] Comment on above: Result Comment: IG% - Immature Granulocytes (promyelocytes, myelocytes andmetamyelocytes) > 1% indicates that a LEFT SHIFT is Present. Performed By: #### L 100.0100, L500.4050 ####[facility] [address] [place], [address] Lymphocytes/100 WBC (Bld) 19.5 % Normal 19-41 [facility] Comment on above: Performed By: #### L 100.0100, L500.4050 ####[facility] [address] [place], [address] MCH (RBC) [Entitic mass] 33.8 pg High 27.0-32.0 [facility] Comment on above: Performed By: #### L 100.0100, L500.4050 ####[facility] [address] [place], [address] MCHC (RBC) [Mass/Vol] 32.9 g/dL Normal 32-36 [facility] Comment on above: Performed By: #### L 100.0100, L500.4050 ####[facility] [address] [place], [address] MCV (RBC) [Entitic vol] 102.8 fL High 81-99 [facility] Comment on above: Performed By: #### L 100.0100, L500.4050 ####[facility] [address] [place], [address] Monocytes/100 WBC (Bld) 11.8 % High 0-10 [facility] Comment on above: Performed By: #### L 100.0100, L500.4050 ####[facility] [address] [place], [address] Neutrophils/100 WBC (Bld) 66.7 % Normal 47-70 [facility] Comment on above: Performed By: #### L 100.0100, L500.4050 ####[facility] [address] [place], [address] Nucleated RBC (Bld) [#/Vol] 0 10*3/uL Normal 0-5 [facility] Comment on above: Performed By: #### L 100.0100, L500.4050 ####[facility] [address] [place], [address] Platelet mean volume (Bld) [Entitic vol] 10.9 fL Normal 6.2-12.0 [facility] Comment on above: Performed By: #### L 100.0100, L500.4050 ####[facility] [address] [place], [address] Platelets (Bld) [#/Vol] 114 10*3/uL Low 150-450 [facility] Comment on above: Performed By: #### L 100.0100, L500.4050 ####[facility] [address] [place], [address] RBC (Bld) [#/Vol] 2.84 10*6/uL Low 4.2-5.4 [facility] Comment on above: Performed By: #### L 100.0100, L500.4050 ####[facility] [address] [place], [address] RDW SD 57.6 fl High 35.1-43.9 [facility] Comment on above: Performed By: #### L 100.0100, L500.4050 ####[facility] [address] [place], [address] WBC (Bld) [#/Vol] 4.3 10*3/uL Low 4.4-11.0 [facility] Comment on above: Performed By: #### L 100.0100, L500.4050 ####[facility] [address] [place], [address] Carbon dioxide, total [Moles /volume] in Central venous bloodOrdered By: Canelo Myers on 07-20-2025 CO2 [Moles/Vol] 27.0 mmol/L 21.0-32.0 [facility] Chloride assayOrdered By: Henrry Myers on 07-20-2025 Chloride [Moles/Vol] 103 mmol/L 98-108 [facility] Comprehensive Metabolic Prof ilon 07-20-2025 Albumin [Mass/Vol] 3.0 g/dL Low 3.5-5.0 [facility] Comment on above: Performed By: #### L 100.0100, L500.4050 ####[facility] [address] [place], [address] Albumin/Globulin [Mass ratio] 1.4 {ratio} Normal 0.9-2.4 [facility] Comment on above: Performed By: #### L 100.0100, L500.4050 ####[facility] [address] [place], [address] ALK PHOS 134 U/L High 35-104 [facility] Comment on above: Performed By: #### L 100.0100, L500.4050 ####[facility] [address] [place], [address] ALT [Catalytic activity/Vol] 114 U/L High <=34 [facility] Comment on above: Performed By: #### L 100.0100, L500.4050 ####[facility] [address] [place], [address] AST [Catalytic activity/Vol] 136 U/L High <=31 [facility] Comment on above: Performed By: #### L 100.0100, L500.4050 ####[facility] [address] [place], [address] Bilirubin [Mass/Vol] 0.86 mg/dL Normal 0.00-1.30 [facility] Comment on above: Performed By: #### L 100.0100, L500.4050 ####[facility] [address] [place], [address] BUN/CRE 10.1 RATIO Normal 10-20 [facility] Comment on above: Performed By: #### L 100.0100, L500.4050 ####[facility] [address] [place], [address] Calcium [Mass/Vol] 7.6 mg/dL Normal 7.6-11.0 [facility] Comment on above: Performed By: #### L 100.0100, L500.4050 ####[facility] [address] [place], [address] Chloride [Moles/Vol] 103 mmol/L Normal 98-108 [facility] Comment on above: Performed By: #### L 100.0100, L500.4050 ####[facility] [address] [place], [address] CO2 [Moles/Vol] 27.0 mmol/L Normal 21.0-32.0 [facility] Comment on above: Performed By: #### L 100.0100, L500.4050 ####[facility] [address] [place], [address] Creatinine [Mass/Vol] 0.40 mg/dL Low 0.70-1.20 [facility] Comment on above: Performed By: #### L 100.0100, L500.4050 ####[facility] [address] [place], [address] ECRCL 148.53 ml/min Normal 50-250 [facility] Comment on above: Performed By: #### L 100.0100, L500.4050 ####[facility] [address] [place], [address] GAP 10 Normal 5-15 [facility] Comment on above: Performed By: #### L 100.0100, L500.4050 ####[facility] [address] [place], [address] GFR/1.73 sq M.predicted among non-blacks MDRD (S/P/Bld) [Vol rate/Area] 122 mL/min/{1.73_m2} Normal >60 [facility] Comment on above: Result Comment: mL/m in/1.73m2 CKD-EPI Creatinine Equation (2020) Performed By: #### L 100.0100, L500.4050 ####[facility] [address] [place], [address] Globulin (S) [Mass/Vol] 2.1 g/dL Low 2.2-4.2 [facility] Comment on above: Performed By: #### L 100.0100, L500.4050 ####[facility] [address] [place], [address] Glucose [Mass/Vol] 107 mg/dL High 70-99 [facility] Comment on above: Performed By: #### L 100.0100, L500.4050 ####[facility] [address] [place], [address] Potassium [Moles/Vol] 3.6 mmol/L Normal 3.3-5.1 [facility] Comment on above: Performed By: #### L 100.0100, L500.4050 ####[facility] [address] [place], [address] Sodium [Moles/Vol] 140 mmol/L Normal 133-145 [facility] Comment on above: Performed By: #### L 100.0100, L500.4050 ####[facility] [address] [place], [address] T PROT 5.1 g/dL Low 5.9-8.4 [facility] Comment on above: Performed By: #### L 100.0100, L500.4050 ####[facility] [address] [place], [address] Urea nitrogen [Mass/Vol] 4 mg/dL Normal 4-19 [facility] Comment on above: Performed By: #### L 100.0100, L500.4050 ####[facility] [address] [place], [address] Eosinophil percentageOrdered By: Canelo Myers on 07-20-2025 Eosinophils/100 WBC (Bld) 1.6 % 0-5 [facility] Erythrocyte distribution wid th ratioOrdered By: Canelo Myers on 07-20-2025 Erythrocyte distribution width (RBC) [Ratio] 15.2 % High 11.6-14.6 [facility] Erythrocyte distribution wid th standard deviationOrdered By: Canelo Myers on 07-20-2025 Erythrocyte distribution width (RBC) [Ratio] 57.6 fl High 35.1-43.9 [facility] Glomerular filtration rate ( GFR) estimation/1.73 sq m using serum, plasma, or whole bOrdered By: Canelo Myers on 07-20-2025 GFR/1.73 sq M.predicted among non-blacks MDRD (S/P/Bld) [Vol rate/Area] 122 mL/min/{1.73_m2} >60 [facility] Gl[facility] at [facility] deOrdered By: Canelo Myers on 07-20-2025 Glucose [Mass/Vol] 217 mg/dL High 74-106 [facility] Hematocrit Auto (Bld) [Volum e fraction]Ordered By: Canelo Myers on 07-20-2025 Hematocrit (Bld) [Volume fraction] 29.2 % Low 37-47 [facility] Hemoglobin measurementOrdere d By: Canelo Myers on 07-20-2025 Hemoglobin (Bld) [Mass/Vol] 9.6 g/dL Low 12.0-15.0 [facility] Immature granulocytes/100 WB C Auto (Bld)Ordered By: Canelo Myers on 07-20-2025 Immature granulocytes/100 WBC (Bld) 0.200 % 0.0-0.9 [facility] MCV (mean corpuscular volume ) determinationOrdered By: Canelo Myers on 07-20-2025 MCV (RBC) [Entitic vol] 102.8 fL High 81-99 [facility] Mean corpuscular hemoglobin (MCH) determinationOrdered By: Canelo Myers on 07-20-2025 MCH (RBC) [Entitic mass] 33.8 pg High 27.0-32.0 [facility] Monocyte percentageOrdered B y: Canelo Myers on 07-20-2025 Monocytes/100 WBC (Bld) 11.8 % High 0-10 [facility] Neutrophil percentageOrdered By: Canelo Myers on 07-20-2025 Neutrophils/100 WBC (Bld) 66.7 % 47-70 [facility] No Panel InformationOrdered By: Canelo Myers on 07-20-2025 136 U/L High <32 [facility] Platelet countOrdered By: Henrry Myers on 07-20-2025 Platelets (Bld) [#/Vol] 114 10*3/uL Low 150-450 [facility] Potassium measurement (mass/ volume)Ordered By: Canelo Myers on 07-20-2025 Potassium (Unsp spec) [Mass/Vol] 3.6 mmol/L 3.3-5.1 [facility] RBC Auto (Bld) [#/Vol]Ordere d By: Canelo Myers on 07-20-2025 RBC (Bld) [#/Vol] 2.84 10*6/uL Low 4.2-5.4 [facility] Serum creatinine measurement (mass/volume)Ordered By: Canelo Myers on 07-20-2025 Creatinine [Mass/Vol] 0.40 mg/dL Low 0.70-1.20 [facility] Serum globulin measurementOr dered By: Canelo Myers on 07-20-2025 Globulin (S) [Mass/Vol] 2.1 g/dL Low 2.2-4.2 [facility] Serum glucose measurement (m ass/volume)Ordered By: Canelo Myers on 07-20-2025 Glucose [Mass/Vol] 107 mg/dL High 70-99 [facility] Serum or plasma alanine wilkerson otransferase (ALT) measurementOrdered By: Canelo Myers on 07-20-2025 ALT [Catalytic activity/Vol] 114 U/L High <35 [facility] Serum or plasma albumin alphonso urement (mass/volume)Ordered By: Canelo Myers on 07-20-2025 Albumin [Mass/Vol] 3.0 g/dL Low 3.5-5.0 [facility] Serum or plasma albumin/glob ulin mass ratioOrdered By: Canelo Myers on 07-20-2025 Albumin/Globulin [Mass ratio] 1.4 {ratio} 0.9-2.4 [facility] Serum or plasma alkaline trinity sphatase measurementOrdered By: Canelo Myers on 07-20-2025 ALP [Catalytic activity/Vol] 134 U/L High 35-104 [facility] Serum or plasma calcium alphonso urement (mass/volume)Ordered By: Canelo Myers on 07-20-2025 Calcium [Mass/Vol] 7.6 mg/dL 7.6-11.0 [facility] Serum or plasma urea nitroge n measurement (mass/volume)Ordered By: Canelo Myers on 07-20-2025 Urea nitrogen [Mass/Vol] 4 mg/dL 4-19 [facility] Sodium levelOrdered By: Ganesh Myers on 07-20-2025 Sodium [Moles/Vol] 140 mmol/L 133-145 [facility] Total proteinOrdered By: Guido Myers on 07-20-2025 Protein [Mass/Vol] 5.1 g/dL Low 5.9-8.4 [facility] White blood cell (WBC) count Ordered By: Canelo Myers on 07-20-2025 WBC (Bld) [#/Vol] 4.3 10*3/uL Low 4.4-11.0 [facility] Bedside Glucoseon 07-19-2025 FINGERSTICK GLU 121 mg/dL High 74-106 [facility] Comment on above: Result Comment: CHAUNCEY GEMENT OF PATIENT CARE PER NURSING PROTOCOL Performed By: #### L 501.080 ####[facility] [address] [place], [address] FINGERSTICK GLU 91 mg/dL Normal 74-106 [facility] Comment on above: Result Comment: CHAUNCEY GEMENT OF PATIENT CARE PER NURSING PROTOCOL Performed By: #### L 501.080 ####[facility] [address] [place], [address] FINGERSTICK GLU 140 mg/dL High 74-106 [facility] Comment on above: Result Comment: CHAUNCEY GEMENT OF PATIENT CARE PER NURSING PROTOCOL Performed By: #### L 501.080 ####[facility] [address] [place], [address] FINGERSTICK GLU 94 mg/dL Normal 74-106 [facility] Comment on above: Result Comment: CHAUNCEY GEMENT OF PATIENT CARE PER NURSING PROTOCOL Performed By: #### L 501.080 ####[facility] [address] [place], [address] CBC W/Diff, Automatedon - PLT EST SLT DEC Normal ADEQ [facility] Comment on above: Performed By: #### L 500.4050, L100.0100 ####[facility] [address] [place], [address] Comprehensive Metabolic Prof ilon 07-19-2025 Albumin [Mass/Vol] 3.0 g/dL Low 3.5-5.0 [facility] Comment on above: Performed By: #### L 500.4050, L100.0100 ####[facility] [address] [place], [address] Albumin/Globulin [Mass ratio] 1.4 {ratio} Normal 0.9-2.4 [facility] Comment on above: Performed By: #### L 500.4050, L100.0100 ####[facility] [address] [place], [address] ALK PHOS 133 U/L High 35-104 [facility] Comment on above: Performed By: #### L 500.4050, L100.0100 ####[facility] [address] [place], [address] ALT [Catalytic activity/Vol] 150 U/L High <=34 [facility] Comment on above: Performed By: #### L 500.4050, L100.0100 ####[facility] [address] [place], [address] AST [Catalytic activity/Vol] 289 U/L High <=31 [facility] Comment on above: Performed By: #### L 500.4050, L100.0100 ####[facility] [address] [place], [address] Bilirubin [Mass/Vol] 1.07 mg/dL Normal 0.00-1.30 [facility] Comment on above: Performed By: #### L 500.4050, L100.0100 ####[facility] [address] [place], [address] BUN/CRE 6.1 RATIO Low 10-20 [facility] Comment on above: Performed By: #### L 500.4050, L100.0100 ####[facility] [address] [place], [address] Calcium [Mass/Vol] 7.0 mg/dL Low 7.6-11.0 [facility] Comment on above: Performed By: #### L 500.4050, L100.0100 ####[facility] [address] [place], [address] Chloride [Moles/Vol] 98 mmol/L Normal 98-108 [facility] Comment on above: Performed By: #### L 500.4050, L100.0100 ####[facility] [address] [place], [address] CO2 [Moles/Vol] 25.2 mmol/L Normal 21.0-32.0 [facility] Comment on above: Performed By: #### L 500.4050, L100.0100 ####[facility] [address] [place], [address] Creatinine [Mass/Vol] 0.42 mg/dL Low 0.70-1.20 [facility] Comment on above: Performed By: #### L 500.4050, L100.0100 ####[facility] [address] [place], [address] ECRCL 141.45 ml/min Normal 50-250 [facility] Comment on above: Performed By: #### L 500.4050, L100.0100 ####[facility] [address] [place], [address] GAP 10 Normal 5-15 [facility] Comment on above: Performed By: #### L 500.4050, L100.0100 ####[facility] [address] [place], [address] GFR/1.73 sq M.predicted among non-blacks MDRD (S/P/Bld) [Vol rate/Area] 121 mL/min/{1.73_m2} Normal >60 [facility] Comment on above: Result Comment: mL/m in/1.73m2 CKD-EPI Creatinine Equation (2020) Performed By: #### L 500.4050, L100.0100 ####[facility] [address] [place], [address] Globulin (S) [Mass/Vol] 2.1 g/dL Low 2.2-4.2 [facility] Comment on above: Performed By: #### L 500.4050, L100.0100 ####[facility] [address] [place], [address] Glucose [Mass/Vol] 93 mg/dL Normal 70-99 [facility] Comment on above: Performed By: #### L 500.4050, L100.0100 ####[facility] [address] [place], [address] Potassium [Moles/Vol] 3.5 mmol/L Normal 3.3-5.1 [facility] Comment on above: Performed By: #### L 500.4050, L100.0100 ####[facility] [address] [place], [address] Sodium [Moles/Vol] 134 mmol/L Normal 133-145 [facility] Comment on above: Performed By: #### L 500.4050, L100.0100 ####[facility] [address] [place], [address] T PROT 5.0 g/dL Low 5.9-8.4 [facility] Comment on above: Performed By: #### L 500.4050, L100.0100 ####[facility] [address] [place], [address] Urea nitrogen [Mass/Vol] 3 mg/dL Low 4-19 [facility] Comment on above: Performed By: #### L 500.4050, L100.0100 ####[facility] [address] [place], [address] Platelet estimateOrdered By: Canelo Myers on 07-19-2025 Platelets LM Ql (Bld) SLT DEC ADEQ [facility] Bedside Glucoseon 07-18-2025 FINGERSTICK GLU 104 mg/dL Normal 74-106 [facility] Comment on above: Result Comment: CHAUNCEY GEMENT OF PATIENT CARE PER NURSING PROTOCOL Performed By: #### L 501.080 ####[facility] [address] [place], [address] FINGERSTICK GLU 108 mg/dL High 74-106 [facility] Comment on above: Result Comment: CHAUNCEY GEMENT OF PATIENT CARE PER NURSING PROTOCOL Performed By: #### L 501.080 ####[facility] [address] [place], [address] FINGERSTICK GLU 109 mg/dL High 74-106 [facility] Comment on above: Result Comment: CHAUNCEY GEMENT OF PATIENT CARE PER NURSING PROTOCOL Performed By: #### L 501.080 ####[facility] [address] [place], [address] FINGERSTICK GLU 84 mg/dL Normal 74-106 [facility] Comment on above: Result Comment: CHAUNCEY GEMENT OF PATIENT CARE PER NURSING PROTOCOL Performed By: #### L 501.080 ####[facility] [address] [place], [address] CBC W/Diff, Automatedon 06-30 Absolute Lymph 0.64 X10 3/uL Low 0.83-4.51 [facility] Comment on above: Performed By: #### L 500.4050, L100.0100, L501.5200, L501.2300 ####[facility] [address] [place], [address] Absolute Neut 3.3 X10 3/uL Normal 2.0-7.7 [facility] Comment on above: Performed By: #### L 500.4050, L100.0100, L501.5200, L501.2300 ####[facility] [address] [place], [address] Basophils/100 WBC (Bld) 0.4 % Normal 0-1 [facility] Comment on above: Performed By: #### L 500.4050, L100.0100, L501.5200, L501.2300 ####[facility] [address] [place], [address] Eosinophils/100 WBC (Bld) 2.4 % Normal 0-5 [facility] Comment on above: Performed By: #### L 500.4050, L100.0100, L501.5200, L501.2300 ####[facility] [address] [place], [address] Erythrocyte distribution width (RBC) [Ratio] 15.8 % High 11.6-14.6 [facility] Comment on above: Performed By: #### L 500.4050, L100.0100, L501.5200, L501.2300 ####[facility] [address] [place], [address] Hematocrit (Bld) [Volume fraction] 32.6 % Low 37-47 [facility] Comment on above: Performed By: #### L 500.4050, L100.0100, L501.5200, L501.2300 ####[facility] [address] [place], [address] Hemoglobin (Bld) [Mass/Vol] 10.8 g/dL Low 12.0-15.0 [facility] Comment on above: Performed By: #### L 500.4050, L100.0100, L501.5200, L501.2300 ####[facility] [address] [place], [address] IG% 0.700 Normal 0.0-0.9 [facility] Comment on above: Result Comment: IG% - Immature Granulocytes (promyelocytes, myelocytes andmetamyelocytes) > 1% indicates that a LEFT SHIFT is Present. Performed By: #### L 500.4050, L100.0100, L501.5200, L501.2300 ####[facility] [address] [place], [address] Lymphocytes/100 WBC (Bld) 14.1 % Low 19-41 [facility] Comment on above: Performed By: #### L 500.4050, L100.0100, L501.5200, L501.2300 ####[facility] [address] [place], [address] MCH (RBC) [Entitic mass] 33.9 pg High 27.0-32.0 [facility] Comment on above: Performed By: #### L 500.4050, L100.0100, L501.5200, L501.2300 ####[facility] [address] [place], [address] MCHC (RBC) [Mass/Vol] 33.1 g/dL Normal 32-36 [facility] Comment on above: Performed By: #### L 500.4050, L100.0100, L501.5200, L501.2300 ####[facility] [address] [place], [address] MCV (RBC) [Entitic vol] 102.2 fL High 81-99 [facility] Comment on above: Performed By: #### L 500.4050, L100.0100, L501.5200, L501.2300 ####[facility] [address] [place], [address] Monocytes/100 WBC (Bld) 9.2 % Normal 0-10 [facility] Comment on above: Performed By: #### L 500.4050, L100.0100, L501.5200, L501.2300 ####[facility] [address] [place], [address] Neutrophils/100 WBC (Bld) 73.2 % High 47-70 [facility] Comment on above: Performed By: #### L 500.4050, L100.0100, L501.5200, L501.2300 ####[facility] [address] [place], [address] Nucleated RBC (Bld) [#/Vol] 0 10*3/uL Normal 0-5 [facility] Comment on above: Performed By: #### L 500.4050, L100.0100, L501.5200, L501.2300 ####[facility] [address] [place], [address] Platelet mean volume (Bld) [Entitic vol] 10.0 fL Normal 6.2-12.0 [facility] Comment on above: Performed By: #### L 500.4050, L100.0100, L501.5200, L501.2300 ####[facility] [address] [place], [address] Platelets (Bld) [#/Vol] 103 10*3/uL Low 150-450 [facility] Comment on above: Performed By: #### L 500.4050, L100.0100, L501.5200, L501.2300 ####[facility] [address] [place], [address] RBC (Bld) [#/Vol] 3.19 10*6/uL Low 4.2-5.4 [facility] Comment on above: Performed By: #### L 500.4050, L100.0100, L501.5200, L501.2300 ####[facility] [address] [place], [address] RDW SD 58.9 fl High 35.1-43.9 [facility] Comment on above: Performed By: #### L 500.4050, L100.0100, L501.5200, L501.2300 ####[facility] [address] [place], [address] WBC (Bld) [#/Vol] 4.6 10*3/uL Normal 4.4-11.0 [facility] Comment on above: Performed By: #### L 500.4050, L100.0100, L501.5200, L501.2300 ####[facility] [address] [place], [address] Comprehensive Metabolic [facility] 07-18-2025 Albumin [Mass/Vol] 3.3 g/dL Low 3.5-5.0 [facility] Comment on above: Performed By: #### L 500.4050, L100.0100, L501.5200, L501.2300 ####[facility] [address] [place], [address] Albumin/Globulin [Mass ratio] 1.5 {ratio} Normal 0.9-2.4 [facility] Comment on above: Performed By: #### L 500.4050, L100.0100, L501.5200, L501.2300 ####[facility] [address] [place], [address] ALK PHOS 176 U/L High 35-104 [facility] Comment on above: Performed By: #### L 500.4050, L100.0100, L501.5200, L501.2300 ####[facility] [address] [place], [address] ALT [Catalytic activity/Vol] 223 U/L High <=34 [facility] Comment on above: Performed By: #### L 500.4050, L100.0100, L501.5200, L501.2300 ####[facility] [address] [place], [address] AST [Catalytic activity/Vol] 788 U/L High <=31 [facility] Comment on above: Performed By: #### L 500.4050, L100.0100, L501.5200, L501.2300 ####[facility] [address] [place], [address] Bilirubin [Mass/Vol] 1.36 mg/dL High 0.00-1.30 [facility] Comment on above: Performed By: #### L 500.4050, L100.0100, L501.5200, L501.2300 ####[facility] [address] [place], [address] BUN/CRE 16.1 RATIO Normal 10-20 [facility] Comment on above: Performed By: #### L 500.4050, L100.0100, L501.5200, L501.2300 ####[facility] [address] [place], [address] Calcium [Mass/Vol] 7.0 mg/dL Low 7.6-11.0 [facility] Comment on above: Performed By: #### L 500.4050, L100.0100, L501.5200, L501.2300 ####[facility] [address] [place], [address] Chloride [Moles/Vol] 100 mmol/L Normal 98-108 [facility] Comment on above: Performed By: #### L 500.4050, L100.0100, L501.5200, L501.2300 ####[facility] [address] [place], [address] CO2 [Moles/Vol] 24.0 mmol/L Normal 21.0-32.0 [facility] Comment on above: Performed By: #### L 500.4050, L100.0100, L501.5200, L501.2300 ####[facility] [address] [place], [address] Creatinine [Mass/Vol] 0.32 mg/dL Low 0.70-1.20 [facility] Comment on above: Performed By: #### L 500.4050, L100.0100, L501.5200, L501.2300 ####[facility] [address] [place], [address] ECRCL 185.66 ml/min Normal 50-250 [facility] Comment on above: Performed By: #### L 500.4050, L100.0100, L501.5200, L501.2300 ####[facility] [address] [place], [address] GAP 13 Normal 5-15 [facility] Comment on above: Performed By: #### L 500.4050, L100.0100, L501.5200, L501.2300 ####[facility] [address] [place], [address] GFR/1.73 sq M.predicted among non-blacks MDRD (S/P/Bld) [Vol rate/Area] 128 mL/min/{1.73_m2} Normal >60 [facility] Comment on above: Result Comment: mL/m in/1.73m2 CKD-EPI Creatinine Equation (2020) Performed By: #### L 500.4050, L100.0100, L501.5200, L501.2300 ####[facility] [address] [place], [address] Globulin (S) [Mass/Vol] 2.2 g/dL Normal 2.2-4.2 [facility] Comment on above: Performed By: #### L 500.4050, L100.0100, L501.5200, L501.2300 ####[facility] [address] [place], [address] Glucose [Mass/Vol] 76 mg/dL Normal 70-99 [facility] Comment on above: Performed By: #### L 500.4050, L100.0100, L501.5200, L501.2300 ####[facility] [address] [place], [address] Potassium [Moles/Vol] 3.6 mmol/L Normal 3.3-5.1 [facility] Comment on above: Performed By: #### L 500.4050, L100.0100, L501.5200, L501.2300 ####[facility] [address] [place], [address] Sodium [Moles/Vol] 137 mmol/L Normal 133-145 [facility] Comment on above: Performed By: #### L 500.4050, L100.0100, L501.5200, L501.2300 ####[facility] [address] [place], [address] T PROT 5.5 g/dL Low 5.9-8.4 [facility] Comment on above: Performed By: #### L 500.4050, L100.0100, L501.5200, L501.2300 ####[facility] [address] [place], [address] Urea nitrogen [Mass/Vol] 5 mg/dL Normal 4-19 [facility] Comment on above: Performed By: #### L 500.4050, L100.0100, L501.5200, L501.2300 ####[facility] [address] [place], [address] Lipaseon 07-18-2025 Lipase [Catalytic activity/Vol] 1128 U/L High 13-75 [facility] Comment on above: Result Comment: Lucie schultz note:LIPASE revised reference range effective 23.New Lipase methodology. Expected to produce lower valuesthan the previous assay method.NEW Reference Range: 13 - 75 U/L Performed By: #### L 501.2450 ####[facility] [address] [place], [address] Magnesiumon 07-18-2025 Magnesium [Mass/Vol] 1.7 mg/dL Normal 1.5-2.2 [facility] Comment on above: Performed By: #### L 500.4050, L100.0100, L501.5200, L501.2300 ####[facility] [address] [place], [address] Magnesium measurement (mass/ volume)Ordered By: Canelo Myers on 07-18-2025 Magnesium (Unsp spec) [Mass/Vol] 1.7 mg/dL 1.5-2.2 [facility] Phosphoruson 07-18-2025 Phosphate [Mass/Vol] 2.7 mg/dL Normal 2.7-4.5 [facility] Comment on above: Performed By: #### L 500.4050, L100.0100, L501.5200, L501.2300 ####[facility] [address] [place], [address] Abdomen/Pelvis W IV Cont ONL Yon 07-17-2025 Abdomen/Pelvis W IV Cont ONLY Normal [facility] Absolute lymphocyte countOrd ered By: Francisco Colon on 07-17-2025 Lymphocytes Auto (Unsp spec) [#/Vol] 0.78 10*3/uL Low 0.83-4.51 [facility] Alcohol, Blood (Medical)-Ser umon 07-17-2025 SERUM ETOH 34.9 mg/dL High <=10.0 [facility] Comment on above: Result Comment: This test is for medical purposes only. The legaldefinition of intoxication varies according to local law. Performed By: #### L 501.9100 ####[facility] [address] [place], [address] Amylaseon 07-17-2025 VENANCIO 898 U/L High 28-100 [facility] Comment on above: Performed By: #### L 500.4050, L501.2450, L501.2400 ####[facility] [address] [place], [address] Anion gap in Serum or Plasma Ordered By: Francisco Colon on 07-17-2025 Anion gap [Moles/Vol] 19 mmol/L High 5-15 [facility] Automated lymphocyte count a s percentage of total leukocytesOrdered By: Francisco Colon on 07-17-2025 Lymphocytes/100 WBC Auto (Unsp spec) 11.2 % Low 19-41 [facility] BUN/creatinine ratioOrdered By: Francisco Colon on 07-17-2025 Urea nitrogen/Creatinine [Mass ratio] 15.5 mg/mg 10-20 [facility] Basophil percentageOrdered B y: Francisco Colon on 07-17-2025 Basophils/100 WBC (Bld) 0.4 % 0-1 [facility] Bedside Glucoseon 07-17-2025 FINGERSTICK GLU 151 mg/dL High 74-106 [facility] Comment on above: Result Comment: CHAUNCEY GEMENT OF PATIENT CARE PER NURSING PROTOCOL Performed By: #### L 501.080 ####[facility] [address] [place], [address] FINGERSTICK GLU 71 mg/dL Low 74-106 [facility] Comment on above: Result Comment: CHAUNCEY GEMENT OF PATIENT CARE PER NURSING PROTOCOL Performed By: #### L 501.080 ####[facility] [address] [place], [address] Bilirubin Test strip Ql (U)O rdered By: Francisco Colon on 07-17-2025 Bilirubin Ql (U) Negative Negative [facility] Bilirubin, totalOrdered By: Francisco Colon on 07-17-2025 Bilirubin [Mass/Vol] 0.43 mg/dL 0.00-1.30 [facility] CBC W/Diff, Automatedon 08- Absolute Lymph 0.78 X10 3/uL Low 0.83-4.51 [facility] Comment on above: Performed By: #### L 100.0100 ####[facility] [address] [place], [address] Absolute Neut 5.6 X10 3/uL Normal 2.0-7.7 [facility] Comment on above: Performed By: #### L 100.0100 ####[facility] [address] [place], [address] Basophils/100 WBC (Bld) 0.4 % Normal 0-1 [facility] Comment on above: Performed By: #### L 100.0100 ####[facility] [address] [place], [address] Eosinophils/100 WBC (Bld) 0.3 % Normal 0-5 [facility] Comment on above: Performed By: #### L 100.0100 ####[facility] [address] [place], [address] Erythrocyte distribution width (RBC) [Ratio] 15.9 % High 11.6-14.6 [facility] Comment on above: Performed By: #### L 100.0100 ####[facility] [address] [place], [address] Hematocrit (Bld) [Volume fraction] 38.5 % Normal 37-47 [facility] Comment on above: Performed By: #### L 100.0100 ####[facility] [address] [place], [address] Hemoglobin (Bld) [Mass/Vol] 13.2 g/dL Normal 12.0-15.0 [facility] Comment on above: Performed By: #### L 100.0100 ####[facility] [address] [place], [address] IG% 0.600 Normal 0.0-0.9 [facility] Comment on above: Result Comment: IG% - Immature Granulocytes (promyelocytes, myelocytes andmetamyelocytes) > 1% indicates that a LEFT SHIFT is Present. Performed By: #### L 100.0100 ####[facility] [address] [place], [address] Lymphocytes/100 WBC (Bld) 11.2 % Low 19-41 [facility] Comment on above: Performed By: #### L 100.0100 ####[facility] [address] [place], [address] MCH (RBC) [Entitic mass] 33.8 pg High 27.0-32.0 [facility] Comment on above: Performed By: #### L 100.0100 ####[facility] [address] [place], [address] MCHC (RBC) [Mass/Vol] 34.3 g/dL Normal 32-36 [facility] Comment on above: Performed By: #### L 100.0100 ####[facility] [address] [place], [address] MCV (RBC) [Entitic vol] 98.7 fL Normal 81-99 [facility] Comment on above: Performed By: #### L 100.0100 ####[facility] [address] [place], [address] Monocytes/100 WBC (Bld) 7.2 % Normal 0-10 [facility] Comment on above: Performed By: #### L 100.0100 ####[facility] [address] [place], [address] Neutrophils/100 WBC (Bld) 80.3 % High 47-70 [facility] Comment on above: Performed By: #### L 100.0100 ####[facility] [address] [place], [address] Nucleated RBC (Bld) [#/Vol] 0 10*3/uL Normal 0-5 [facility] Comment on above: Performed By: #### L 100.0100 ####[facility] [address] [place], [address] Platelet mean volume (Bld) [Entitic vol] 9.7 fL Normal 6.2-12.0 [facility] Comment on above: Performed By: #### L 100.0100 ####[facility] [address] [place], [address] Platelets (Bld) [#/Vol] 150 10*3/uL Normal 150-450 [facility] Comment on above: Performed By: #### L 100.0100 ####[facility] [address] [place], [address] RBC (Bld) [#/Vol] 3.90 10*6/uL Low 4.2-5.4 [facility] Comment on above: Performed By: #### L 100.0100 ####[facility] [address] [place], [address] RDW SD 56.5 fl High 35.1-43.9 [facility] Comment on above: Performed By: #### L 100.0100 ####[facility] [address] [place], [address] WBC (Bld) [#/Vol] 7.0 10*3/uL Normal 4.4-11.0 [facility] Comment on above: Performed By: #### L 100.0100 ####[facility] [address] [place], [address] Carbon dioxide, total [Moles /volume] in Central venous bloodOrdered By: Francisco Colon on 07-17-2025 CO2 [Moles/Vol] 25.6 mmol/L 21.0-32.0 [facility] Chloride assayOrdered By: Peyman Colon on 07-17-2025 Chloride [Moles/Vol] 99 mmol/L 98-108 [facility] Comprehensive Metabolic Prof ilon 07-17-2025 Albumin [Mass/Vol] 3.9 g/dL Normal 3.5-5.0 [facility] Comment on above: Performed By: #### L 500.4050, L501.2450, L501.2400 ####[facility] [address] [place], [address] Albumin/Globulin [Mass ratio] 1.4 {ratio} Normal 0.9-2.4 [facility] Comment on above: Performed By: #### L 500.4050, L501.2450, L501.2400 ####[facility] [address] [place], [address] ALK PHOS 98 U/L Normal 35-104 [facility] Comment on above: Performed By: #### L 500.4050, L501.2450, L501.2400 ####[facility] [address] [place], [address] ALT [Catalytic activity/Vol] 92 U/L High <=34 [facility] Comment on above: Performed By: #### L 500.4050, L501.2450, L501.2400 ####[facility] [address] [place], [address] AST [Catalytic activity/Vol] 165 U/L High <=31 [facility] Comment on above: Performed By: #### L 500.4050, L501.2450, L501.2400 ####[facility] [address] [place], [address] Bilirubin [Mass/Vol] 0.43 mg/dL Normal 0.00-1.30 [facility] Comment on above: Performed By: #### L 500.4050, L501.2450, L501.2400 ####[facility] [address] [place], [address] BUN/CRE 15.5 RATIO Normal 10-20 [facility] Comment on above: Performed By: #### L 500.4050, L501.2450, L501.2400 ####[facility] [address] [place], [address] Calcium [Mass/Vol] 8.6 mg/dL Normal 7.6-11.0 [facility] Comment on above: Performed By: #### L 500.4050, L501.2450, L501.2400 ####[facility] [address] [place], [address] Chloride [Moles/Vol] 99 mmol/L Normal 98-108 [facility] Comment on above: Performed By: #### L 500.4050, L501.2450, L501.2400 ####[facility] [address] [place], [address] CO2 [Moles/Vol] 25.6 mmol/L Normal 21.0-32.0 [facility] Comment on above: Performed By: #### L 500.4050, L501.2450, L501.2400 ####[facility] [address] [place], [address] Creatinine [Mass/Vol] 0.39 mg/dL Low 0.70-1.20 [facility] Comment on above: Performed By: #### L 500.4050, L501.2450, L501.2400 ####[facility] [address] [place], [address] ECRCL 152.33 ml/min Normal 50-250 [facility] Comment on above: Performed By: #### L 500.4050, L501.2450, L501.2400 ####[facility] [address] [place], [address] GAP 19 High 5-15 [facility] Comment on above: Performed By: #### L 500.4050, L501.2450, L501.2400 ####[facility] [address] [place], [address] GFR/1.73 sq M.predicted among non-blacks MDRD (S/P/Bld) [Vol rate/Area] 123 mL/min/{1.73_m2} Normal >60 [facility] Comment on above: Result Comment: mL/m in/1.73m2 CKD-EPI Creatinine Equation (2020) Performed By: #### L 500.4050, L501.2450, L501.2400 ####[facility] [address] [place], [address] Globulin (S) [Mass/Vol] 2.7 g/dL Normal 2.2-4.2 [facility] Comment on above: Performed By: #### L 500.4050, L501.2450, L501.2400 ####[facility] [address] [place], [address] Glucose [Mass/Vol] 120 mg/dL High 70-99 [facility] Comment on above: Performed By: #### L 500.4050, L501.2450, L501.2400 ####[facility] [address] [place], [address] Potassium [Moles/Vol] 3.0 mmol/L Low 3.3-5.1 [facility] Comment on above: Performed By: #### L 500.4050, L501.2450, L501.2400 ####[facility] [address] [place], [address] Sodium [Moles/Vol] 144 mmol/L Normal 133-145 [facility] Comment on above: Performed By: #### L 500.4050, L501.2450, L501.2400 ####[facility] [address] [place], [address] T PROT 6.6 g/dL Normal 5.9-8.4 [facility] Comment on above: Performed By: #### L 500.4050, L501.2450, L501.2400 ####[facility] [address] [place], [address] Urea nitrogen [Mass/Vol] 6 mg/dL Normal 4-19 [facility] Comment on above: Performed By: #### L 500.4050, L501.2450, L501.2400 ####[facility] [address] [place], [address] Emergency Department Summary on 07-17-2025 Emergency Department Summary Normal [facility] Eosinophil percentageOrdered By: Francisco Colon on 07-17-2025 Eosinophils/100 WBC (Bld) 0.3 % 0-5 [facility] Erythrocyte distribution wid th ratioOrdered By: Francisco Colon on 07-17-2025 Erythrocyte distribution width (RBC) [Ratio] 15.9 % High 11.6-14.6 [facility] Erythrocyte distribution wid th standard deviationOrdered By: Francisco Colon on 07-17-2025 Erythrocyte distribution width (RBC) [Ratio] 56.5 fl High 35.1-43.9 [facility] Glomerular filtration rate ( GFR) estimation/1.73 sq m using serum, plasma, or whole bOrdered By: Francisco Colon on 07-17-2025 GFR/1.73 sq M.predicted among non-blacks MDRD (S/P/Bld) [Vol rate/Area] 123 mL/min/{1.73_m2} >60 [facility] H AND P Exam - Hospitaliston 07-17-2025 H&P Exam - Hospitalist Normal [facility] Hematocrit Auto (Bld) [Volum e fraction]Ordered By: Francisco Colon on 07-17-2025 Hematocrit (Bld) [Volume fraction] 38.5 % 37-47 [facility] Hemoglobin measurementOrdere d By: Francisco Colon on 07-17-2025 Hemoglobin (Bld) [Mass/Vol] 13.2 g/dL 12.0-15.0 [facility] Immature granulocytes/100 WB C Auto (Bld)Ordered By: Francisco Colon on 07-17-2025 Immature granulocytes/100 WBC (Bld) 0.600 % 0.0-0.9 [facility] Ketones Test strip Ql (U)Ord ered By: Francisco Colon on 07-17-2025 Ketones Ql (U) 5 mg/dl High Negative [facility] Lipaseon 07-17-2025 Lipase [Catalytic activity/Vol] U/L High 13-75 [facility] Comment on above: Result Comment: Lucie schultz note:LIPASE revised reference range effective 23.New Lipase methodology. Expected to produce lower valuesthan the previous assay method.NEW Reference Range: 13 - 75 U/L Performed By: #### L 500.4050, L501.2450, L501.2400 ####[facility] [address] [place], [place], [address] MCV (mean corpuscular volume ) determinationOrdered By: Francisco Colon on 07-17-2025 MCV (RBC) [Entitic vol] 98.7 fL 81-99 [facility] Magnesiumon 07-17-2025 Magnesium [Mass/Vol] 1.1 mg/dL Low 1.5-2.2 [facility] Comment on above: Performed By: #### L 501.2300, L501.5200 ####[facility] [address] [place], [place], [address] Mean corpuscular hemoglobin (MCH) determinationOrdered By: Francisco Colon on 07-17-2025 MCH (RBC) [Entitic mass] 33.8 pg High 27.0-32.0 [facility] Monocyte percentageOrdered B y: Francisco Colon on 07-17-2025 Monocytes/100 WBC (Bld) 7.2 % 0-10 [facility] Mucus LM Ql (Urine sed)Order ed By: Francisco Colon on 07-17-2025 Mucus Ql (Urine sed) 0 SEEN /hpf [facility] Neutrophil percentageOrdered By: Francisco Colon on 07-17-2025 Neutrophils/100 WBC (Bld) 80.3 % High 47-70 [facility] Nitrite Test strip Ql (U)Ord ered By: Francisco Colon on 07-17-2025 Nitrite Ql (U) Negative Negative [facility] No Panel InformationOrdered By: Francisco Colon on 07-17-2025 165 U/L High <32 [facility] Phosphoruson 07-17-2025 Phosphate [Mass/Vol] 4.4 mg/dL Normal 2.7-4.5 [facility] Comment on above: Performed By: #### L 501.2300, L501.5200 ####[facility] [address] [place], [place], [address] Platelet countOrdered By: Peyman Colon on 07-17-2025 Platelets (Bld) [#/Vol] 150 10*3/uL 150-450 [facility] Potassium measurement (mass/ volume)Ordered By: Francisco Colon on 07-17-2025 Potassium (Unsp spec) [Mass/Vol] 3.0 mmol/L Low 3.3-5.1 [facility] ,Serum,hCG Quali.on 07-17-2025 HCG, SERUM QUAL Negative Normal [facility] Comment on above: Performed By: #### L 293.8305 ####[facility] [address] [place], [address] Protein Test strip Ql (U)Ord ered By: Francisco Colon on 07-17-2025 Protein Ql (U) 30 mg/dl High Negative [facility] Prothrombin Time w/INRon INR Coag (PPP) [Relative time] 1.0 {INR} Normal [facility] Comment on above: Performed By: #### L 300.3900 ####[facility] [address] [place], [address] PT Coag (PPP) [Time] 12.9 s Normal 11.7-14.9 [facility] Comment on above: Performed By: #### L 300.3900 ####[facility] [address] [place], [address] Prothrombin timeOrdered By: Canelo Myers on 07-17-2025 PT Coag (PPP) [Time] 12.9 s 11.7-14.9 [facility] RBC Auto (Bld) [#/Vol]Ordere d By: Francisco Colon on 07-17-2025 RBC (Bld) [#/Vol] 3.90 10*6/uL Low 4.2-5.4 [facility] Serum beta-hCG test, qualita tiveOrdered By: Francisco Colon on 07-17-2025 Beta HCG ( test) Ql Negative [facility] Serum creatinine measurement (mass/volume)Ordered By: Francisco Colon on 07-17-2025 Creatinine [Mass/Vol] 0.39 mg/dL Low 0.70-1.20 [facility] Serum globulin measurementOr dered By: Francisco Colon on 07-17-2025 Globulin (S) [Mass/Vol] 2.7 g/dL 2.2-4.2 [facility] Serum glucose measurement (m ass/volume)Ordered By: Francisco Colon on 07-17-2025 Glucose [Mass/Vol] 120 mg/dL High 70-99 [facility] Serum or plasma alanine wilkerson otransferase (ALT) measurementOrdered By: Francisco Colon on 07-17-2025 ALT [Catalytic activity/Vol] 92 U/L High <35 [facility] Serum or plasma albumin alphonso urement (mass/volume)Ordered By: Francisco Colon on 07-17-2025 Albumin [Mass/Vol] 3.9 g/dL 3.5-5.0 [facility] Serum or plasma albumin/glob ulin mass ratioOrdered By: Francisco Colon on 07-17-2025 Albumin/Globulin [Mass ratio] 1.4 {ratio} 0.9-2.4 [facility] Serum or plasma alkaline trinity sphatase measurementOrdered By: Francisco Colon on 07-17-2025 ALP [Catalytic activity/Vol] 98 U/L 35-104 [facility] Serum or plasma amylase alphonso urement (enzymatic activity/volume)Ordered By: Francisco Colon on 07-17-2025 Amylase [Catalytic activity/Vol] 898 U/L High 28-100 [facility] Serum or plasma calcium alphonso urement (mass/volume)Ordered By: Francisco Colon on 07-17-2025 Calcium [Mass/Vol] 8.6 mg/dL 7.6-11.0 [facility] Serum or plasma ethanol alphonso urement (mass/volume)Ordered By: Francisco Colon on 07-17-2025 Ethanol [Mass/Vol] 34.9 mg/dL High <10.1 [facility] Serum or plasma urea nitroge n measurement (mass/volume)Ordered By: Francisco Colon on 07-17-2025 Urea nitrogen [Mass/Vol] 6 mg/dL 4- [facility] Sodium levelOrdered By: Francisco Colon on 07-17-2025 Sodium [Moles/Vol] 144 mmol/L 133-145 [facility] Squamous epithelial cells de tection in urine sediment by light microscopyOrdered By: Francisco Colon on 07-17-2025 Epithelial cells.squamous LM Ql (Urine sed) 0-5 SEEN /hpf 04-07 [facility] Total proteinOrdered By: Rommel Colon on 07-17-2025 Protein [Mass/Vol] 6.6 g/dL 5.9-8.4 [facility] Urinalysis, Completeon 07-17 EPI,SQUAMOUS 0-5 SEEN Normal 04-07 [facility] Comment on above: Order Comment: CLEAN CATCH Performed By: #### L 400.0001 ####[facility] [address] [place], [place], [id number] BACTERIA 0 SEEN Normal None Seen [facility] Comment on above: Order Comment: CLEAN CATCH Performed By: #### L 400.0001 ####[facility] [address] [place], [address] Mucus Ql (Urine sed) 0 SEEN Normal [facility] Comment on above: Order Comment: CLEAN CATCH Performed By: #### L 400.0001 ####[facility] [address] [place], [address] RBC 0 SEEN Normal 0-5 [facility] Comment on above: Order Comment: CLEAN CATCH Performed By: #### L 400.0001 ####[facility] [address] [place], [place], [address] WBC 0 SEEN Normal 0-5 [facility] Comment on above: Order Comment: CLEAN CATCH Performed By: #### L 400.0001 ####[facility] [address] [place], [place], [id number] Urine clarityOrdered By: Rommel Colon on 07-17-2025 Clarity (U) Clear Clear [facility] Urine color determinationOrd ered By: Francisco Colon on 07-17-2025 Color (U) Yellow Yellow [facility] Urine glucose detectionOrder ed By: Francisco Colon on 07-17-2025 Glucose Ql (U) Normal mg/dl Normal [facility] Urine leukocyte esterase det ection by dipstickOrdered By: Francisco Colon on 07-17-2025 Leukocyte esterase Test strip Ql (U) 25 /ul High Negative [facility] Urine pHOrdered By: Francisco stuart on 07-17-2025 pH (U) 6.5 [pH] 5.0 - 8.0 [facility] Urine sediment bacteria coun t by microscopy (number/high power field)Ordered By: Francisco Colon on 07-17-2025 Bacteria LM.HPF (Urine sed) [#/Area] 0 /[HPF] None Seen [facility] Urine specific gravity measu rementOrdered By: Francisco Colon on 07-17-2025 Specific gravity (U) [Rel density] 1.010 1.002-1.030 [facility] Urine urobilinogen measureme ntOrdered By: Francisco Colon on 07-17-2025 Urobilinogen Ql (U) Normal mg/dl Normal [facility] White blood cell (WBC) count Ordered By: Francisco Colon on 07-17-2025 WBC (Bld) [#/Vol] 7.0 10*3/uL 4.4-11.0 [facility] White blood cell countOrdere d By: Francisco Colon on 07-17-2025 White blood cell count 0 SEEN /hpf 0-5 [facility] Bedside Glucoseon 05-28-2025 FINGERSTICK GLU 259 mg/dL High 74-106 [facility] Comment on above: Result Comment: CHAUNCEY GEMENT OF PATIENT CARE PER NURSING PROTOCOL Performed By: #### L 501.080 ####[facility] [address] [facility] [address] FINGERSTICK GLU 164 mg/dL High [address] [facility] Comment on above: Result Comment: CHAUNCEY GEMENT OF PATIENT CARE PER NURSING PROTOCOL Performed By: #### L 501.080 ####[facility] [address] [facility] [address] Discharge Instructionon 3 Discharge Instruction Normal [facility] Glucose measurement at [facility] deOrdered By: Mao Becker on 05-28-2025 Glucose [Mass/Vol] 259 mg/dL High 74-106 [facility] Comment on above: MANAGEMENT OF PATIEN T CARE PER NURSING PROTOCOL Bedside Glucoseon 05-27-2025 FINGERSTICK GLU 217 mg/dL High [address] [place] [address] Comment on above: Result Comment: CHAUNCEY GEMENT OF PATIENT CARE PER NURSING PROTOCOL Performed By: #### L 501.080 ####[facility] [address] [facility] [address] FINGERSTICK GLU 179 mg/dL High [facility]106 [facility] Comment on above: Result Comment: CHAUNCEY GEMENT OF PATIENT CARE PER NURSING PROTOCOL Performed By: #### L 501.080 ####[facility] [address] [facility] [address] FINGERSTICK GLU 246 mg/dL High [address] [place] [address] Comment on above: Result Comment: CHAUNCEY GEMENT OF PATIENT CARE PER NURSING PROTOCOL Performed By: #### L 501.080 ####[facility] [address] [facility] [address] FINGERSTICK GLU 133 mg/dL High [address] [facility] Comment on above: Result Comment: CHAUNCEY GEMENT OF PATIENT CARE PER NURSING PROTOCOL Performed By: #### L 501.080 ####[facility] [address] [place], [address] Magnesiumon 05-27-2025 Magnesium [Mass/Vol] 1.7 mg/dL Normal 1.5-2.2 [facility] Comment on above: Performed By: #### L 501.5200 ####[facility] [address] [place], [address] Magnesium measurement (mass/ volume)Ordered By: Mao Becker on 05-27-2025 Magnesium (Unsp spec) [Mass/Vol] 1.7 mg/dL 1.5-2.2 [facility] Bedside Glucoseon 05-26-2025 FINGERSTICK GLU 243 mg/dL High 74-106 [facility] Comment on above: Result Comment: CHAUNCEY GEMENT OF PATIENT CARE PER NURSING PROTOCOL Performed By: #### L 501.080 ####[facility] [address] [place], [address] FINGERSTICK GLU 221 mg/dL High 74-106 [facility] Comment on above: Result Comment: CHAUNCEY GEMENT OF PATIENT CARE PER NURSING PROTOCOL Performed By: #### L 501.080 ####[facility] [address] [place], [address] FINGERSTICK GLU 293 mg/dL High 74-106 [facility] Comment on above: Result Comment: CHAUNCEY GEMENT OF PATIENT CARE PER NURSING PROTOCOL Performed By: #### L 501.080 ####[facility] [address] [place], [address] FINGERSTICK GLU 119 mg/dL High 74-106 [facility] Comment on above: Result Comment: CHAUNCEY GEMENT OF PATIENT CARE PER NURSING PROTOCOL Performed By: #### L 501.080 ####[facility] [address] [place], [address] Magnesiumon 05-26-2025 Magnesium [Mass/Vol] 1.3 mg/dL Low 1.5-2.2 [facility] Comment on above: Performed By: #### L 501.5200 ####[facility] [address] [place], [address] Alcohol, Blood (Medical)-Ser umon 05-25-2025 SERUM ETOH 312.0 mg/dL Invalid Interpretation Code <=10.0 [facility] Comment on above: Result Comment: Crit ical Result(s) Called at 0100: by: NBURNS TO LSPARR??Results read back by same.This test is for medical purposes only. The legaldefinition of intoxication varies according to local law. Performed By: #### L 100.0100, L501.9100, L700.6800, L500.4050, L505.5000 ####[facility] [address] [place], [address] Bedside Glucoseon 05-25-2025 FINGERSTICK GLU 182 mg/dL High 74-106 [facility] Comment on above: Result Comment: CHAUNCEY GEMENT OF PATIENT CARE PER NURSING PROTOCOL Performed By: #### L 501.080 ####[facility] [address] [place], [address] FINGERSTICK GLU 187 mg/dL High 74-106 [facility] Comment on above: Result Comment: CHAUNCEY GEMENT OF PATIENT CARE PER NURSING PROTOCOL Performed By: #### L 501.080 ####[facility] [address] [place], [address] FINGERSTICK GLU 220 mg/dL High 74-106 [facility] Comment on above: Result Comment: CHAUNCEY GEMENT OF PATIENT CARE PER NURSING PROTOCOL Performed By: #### L 501.080 ####[facility] [address] [place], [address] FINGERSTICK GLU 179 mg/dL High 74-106 [facility] Comment on above: Result Comment: CHAUNCEY GEMENT OF PATIENT CARE PER NURSING PROTOCOL Performed By: #### L 501.080 ####[facility] [address] [place], [address] CBC W/Diff, Automatedon 06-2 Absolute Lymph 3.57 X10 3/uL Normal 0.83-4.51 [facility] Comment on above: Performed By: #### L 100.0100, L501.9100, L700.6800, L500.4050, L505.5000 ####[facility] [address] [place], [address] Absolute Neut 4.3 X10 3/uL Normal 2.0-7.7 [facility] Comment on above: Performed By: #### L 100.0100, L501.9100, L700.6800, L500.4050, L505.5000 ####[facility] [address] [place], [address] Basophils/100 WBC (Bld) 0.5 % Normal 0-1 [facility] Comment on above: Performed By: #### L 100.0100, L501.9100, L700.6800, L500.4050, L505.5000 ####[facility] [address] [place], [address] Eosinophils/100 WBC (Bld) 0.7 % Normal 0-5 [facility] Comment on above: Performed By: #### L 100.0100, L501.9100, L700.6800, L500.4050, L505.5000 ####[facility] [address] [place], [address] Erythrocyte distribution width (RBC) [Ratio] 13.1 % Normal 11.6-14.6 [facility] Comment on above: Performed By: #### L 100.0100, L501.9100, L700.6800, L500.4050, L505.5000 ####[facility] [address] [place], [address] Hematocrit (Bld) [Volume fraction] 38.3 % Normal 37-47 [facility] Comment on above: Performed By: #### L 100.0100, L501.9100, L700.6800, L500.4050, L505.5000 ####[facility] [address] [place], [address] Hemoglobin (Bld) [Mass/Vol] 13.2 g/dL Normal 12.0-15.0 [facility] Comment on above: Performed By: #### L 100.0100, L501.9100, L700.6800, L500.4050, L505.5000 ####[facility] [address] [place], [address] IG% 0.100 Normal 0.0-0.9 [facility] Comment on above: Result Comment: IG% - Immature Granulocytes (promyelocytes, myelocytes andmetamyelocytes) > 1% indicates that a LEFT SHIFT is Present. Performed By: #### L 100.0100, L501.9100, L700.6800, L500.4050, L505.5000 ####[facility] [address] [place], [address] Lymphocytes/100 WBC (Bld) 41.1 % High 19-41 [facility] Comment on above: Performed By: #### L 100.0100, L501.9100, L700.6800, L500.4050, L505.5000 ####[facility] [address] [place], [address] MCH (RBC) [Entitic mass] 34.6 pg High 27.0-32.0 [facility] Comment on above: Performed By: #### L 100.0100, L501.9100, L700.6800, L500.4050, L505.5000 ####[facility] [address] [place], [address] MCHC (RBC) [Mass/Vol] 34.5 g/dL Normal 32-36 [facility] Comment on above: Performed By: #### L 100.0100, L501.9100, L700.6800, L500.4050, L505.5000 ####[facility] [address] [place], [address] MCV (RBC) [Entitic vol] 100.3 fL High 81-99 [facility] Comment on above: Performed By: #### L 100.0100, L501.9100, L700.6800, L500.4050, L505.5000 ####[facility] [address] [place], [address] Monocytes/100 WBC (Bld) 7.7 % Normal 0-10 [facility] Comment on above: Performed By: #### L 100.0100, L501.9100, L700.6800, L500.4050, L505.5000 ####[facility] [address] [place], [address] Neutrophils/100 WBC (Bld) 49.9 % Normal 47-70 [facility] Comment on above: Performed By: #### L 100.0100, L501.9100, L700.6800, L500.4050, L505.5000 ####[facility] [address] [place], [address] Nucleated RBC (Bld) [#/Vol] 0 10*3/uL Normal 0-5 [facility] Comment on above: Performed By: #### L 100.0100, L501.9100, L700.6800, L500.4050, L505.5000 ####[facility] [address] [place], [address] Platelet mean volume (Bld) [Entitic vol] 10.0 fL Normal 6.2-12.0 [facility] Comment on above: Performed By: #### L 100.0100, L501.9100, L700.6800, L500.4050, L505.5000 ####[facility] [address] [place], [address] Platelets (Bld) [#/Vol] 187 10*3/uL Normal 150-450 [facility] Comment on above: Performed By: #### L 100.0100, L501.9100, L700.6800, L500.4050, L505.5000 ####[facility] [address] [place], [address] RBC (Bld) [#/Vol] 3.82 10*6/uL Low 4.2-5.4 [facility] Comment on above: Performed By: #### L 100.0100, L501.9100, L700.6800, L500.4050, L505.5000 ####[facility] [address] [place], [address] RDW SD 47.9 fl High 35.1-43.9 [facility] Comment on above: Performed By: #### L 100.0100, L501.9100, L700.6800, L500.4050, L505.5000 ####[facility] [address] [place], [address] WBC (Bld) [#/Vol] 8.7 10*3/uL Normal 4.4-11.0 [facility] Comment on above: Performed By: #### L 100.0100, L501.9100, L700.6800, L500.4050, L505.5000 ####[facility] [address] [place], [address] Comprehensive Metabolic Prof ilon 05-25-2025 Albumin [Mass/Vol] 4.1 g/dL Normal 3.5-5.0 [facility] Comment on above: Performed By: #### L 100.0100, L501.9100, L700.6800, L500.4050, L505.5000 ####[facility] [address] [place], [address] Albumin/Globulin [Mass ratio] 1.2 {ratio} Normal 0.9-2.4 [facility] Comment on above: Performed By: #### L 100.0100, L501.9100, L700.6800, L500.4050, L505.5000 ####[facility] [address] [place], [address] ALK PHOS 115 U/L High 35-104 [facility] Comment on above: Performed By: #### L 100.0100, L501.9100, L700.6800, L500.4050, L505.5000 ####[facility] [address] [place], [address] ALT [Catalytic activity/Vol] 29 U/L Normal <=34 [facility] Comment on above: Performed By: #### L 100.0100, L501.9100, L700.6800, L500.4050, L505.5000 ####[facility] [address] [place], [address] AST [Catalytic activity/Vol] 45 U/L High <=31 [facility] Comment on above: Result Comment: Hemo lysis present, Results??could be affected.?? Performed By: #### L 100.0100, L501.9100, L700.6800, L500.4050, L505.5000 ####[facility] [address] [place], [address] Bilirubin [Mass/Vol] 0.37 mg/dL Normal 0.00-1.30 [facility] Comment on above: Performed By: #### L 100.0100, L501.9100, L700.6800, L500.4050, L505.5000 ####[facility] [address] [place], [address] BUN/CRE 11.4 RATIO Normal 10-20 [facility] Comment on above: Performed By: #### L 100.0100, L501.9100, L700.6800, L500.4050, L505.5000 ####[facility] [address] [place], [address] Calcium [Mass/Vol] 8.7 mg/dL Normal 7.6-11.0 [facility] Comment on above: Performed By: #### L 100.0100, L501.9100, L700.6800, L500.4050, L505.5000 ####[facility] [address] [place], [address] Chloride [Moles/Vol] 98 mmol/L Normal 98-108 [facility] Comment on above: Performed By: #### L 100.0100, L501.9100, L700.6800, L500.4050, L505.5000 ####[facility] [address] [place], [address] CO2 [Moles/Vol] 20.9 mmol/L Low 21.0-32.0 [facility] Comment on above: Performed By: #### L 100.0100, L501.9100, L700.6800, L500.4050, L505.5000 ####[facility] [address] [place], [address] Creatinine [Mass/Vol] 0.72 mg/dL Normal 0.70-1.20 [facility] Comment on above: Performed By: #### L 100.0100, L501.9100, L700.6800, L500.4050, L505.5000 ####[facility] [address] [place], [address] ECRCL 82.51 ml/min Normal 50-250 [facility] Comment on above: Performed By: #### L 100.0100, L501.9100, L700.6800, L500.4050, L505.5000 ####[facility] [address] [place], [address] GAP 21 High 5-15 [facility] Comment on above: Performed By: #### L 100.0100, L501.9100, L700.6800, L500.4050, L505.5000 ####[facility] [address] [place], [address] GFR/1.73 sq M.predicted among non-blacks MDRD (S/P/Bld) [Vol rate/Area] 104 mL/min/{1.73_m2} Normal >60 [facility] Comment on above: Result Comment: mL/m in/1.73m2 CKD-EPI Creatinine Equation (2020) Performed By: #### L 100.0100, L501.9100, L700.6800, L500.4050, L505.5000 ####[facility] [address] [place], [address] Globulin (S) [Mass/Vol] 3.4 g/dL Normal 2.2-4.2 [facility] Comment on above: Performed By: #### L 100.0100, L501.9100, L700.6800, L500.4050, L505.5000 ####[facility] [address] [place], [address] Glucose [Mass/Vol] 84 mg/dL Normal 70-99 [facility] Comment on above: Performed By: #### L 100.0100, L501.9100, L700.6800, L500.4050, L505.5000 ####[facility] [address] [place], [address] Potassium [Moles/Vol] 4.1 mmol/L Normal 3.3-5.1 [facility] Comment on above: Result Comment: Hemo lysis present, Results??could be affected.?? Performed By: #### L 100.0100, L501.9100, L700.6800, L500.4050, L505.5000 ####[facility] [address] [place], [address] Sodium [Moles/Vol] 140 mmol/L Normal 133-145 [facility] Comment on above: Performed By: #### L 100.0100, L501.9100, L700.6800, L500.4050, L505.5000 ####[facility] [address] [place], [address] T PROT 7.5 g/dL Normal 5.9-8.4 [facility] Comment on above: Performed By: #### L 100.0100, L501.9100, L700.6800, L500.4050, L505.5000 ####[facility] [address] [place], [address] Urea nitrogen [Mass/Vol] 8 mg/dL Normal 4-19 [facility] Comment on above: Performed By: #### L 100.0100, L501.9100, L700.6800, L500.4050, L505.5000 ####[facility] [address] [place], [address] Emergency Department Summary on 05-25-2025 Emergency Department Summary Normal [facility] H AND P Exam - Hospitaliston 05-25-2025 H&P Exam - Hospitalist Normal [facility] Magnesiumon 05-25-2025 Magnesium [Mass/Vol] 1.6 mg/dL Normal 1.5-2.2 [facility] Comment on above: Performed By: #### L 501.5200 ####[facility] [address] [place], [address] Magnesium [Mass/Vol] 1.1 mg/dL Low 1.5-2.2 [facility] Comment on above: Order Comment: Comme nts: May add to ED labsComments: may add to ED labs Performed By: #### L 501.2300, L501.5200 ####[facility] [address] [place], [address] Magnesium measurement (mass/ volume)Ordered By: Myra Null on 05-25-2025 Magnesium (Unsp spec) [Mass/Vol] 1.1 mg/dL Low 1.5-2.2 [facility] Phosphoruson 05-25-2025 Phosphate [Mass/Vol] 4.5 mg/dL Normal 2.7-4.5 [facility] Comment on above: Order Comment: Comme nts: May add to ED labsComments: may add to ED labs Performed By: #### L 501.2300, L501.5200 ####[facility] [address] [place], [address] ,Serum,hCG Quali.on 05-25-2025 HCG, SERUM QUAL Negative Normal [facility] Comment on above: Performed By: #### L 100.0100, L501.9100, L700.6800, L500.4050, L505.5000 ####[facility] [address] [place], [address] Urinalysis, Completeon 05-25 EPI,SQUAMOUS 5-10 SEEN Normal 5-10 [facility] Comment on above: Order Comment: CLEAN CATCH Performed By: #### L 400.0001 ####[facility] [address] [place], [address] RBC 0-5 SEEN Normal 0-5 [facility] Comment on above: Order Comment: CLEAN CATCH Performed By: #### L 400.0001 ####[facility] [address] [place], [address] WBC 0-5 SEEN Normal 0-5 [facility] Comment on above: Order Comment: CLEAN CATCH Performed By: #### L 400.0001 ####[facility] [address] [facility] [address] BACTERIA 0 SEEN Normal None Seen [facility] Comment on above: Order Comment: CLEAN CATCH Performed By: #### L 400.0001 ####[facility] [address] [facility] [address] Mucus Ql (Urine sed) 0 SEEN Normal [facility] Comment on above: Order Comment: CLEAN CATCH Performed By: #### L 400.0001 ####[facility] [address] [place] [address] Urine Drug Screen (VISTA)on 05-25-2025 AMPHETAMINES Negative Normal <1000 ng/mL [facility] Comment on above: Performed By: #### L 100.0100, L501.9100, L700.6800, L500.4050, L505.5000 ####[facility] [address] [place] [address] BARBITIURATES Positive Normal < 200 ng/mL [facility] Comment on above: Result Comment: If c onfirmation testing is needed, a separate order will berequired to send out testing to the reference laboratory. Performed By: #### L 100.0100, L501.9100, L700.6800, L500.4050, L505.5000 ####[facility] [address] [facility] [address] BENZODIAZIPINE Positive Normal < 200 ng/mL [facility] Comment on above: Result Comment: If c onfirmation testing is needed, a separate order will berequired to send out testing to the reference laboratory. Performed By: #### L 100.0100, L501.9100, L700.6800, L500.4050, L505.5000 ####[facility] [address] [place] [address] BUP Ur Drug Scr Negative Normal < 200 ng/mL [facility] Comment on above: Performed By: #### L 100.0100, L501.9100, L700.6800, L500.4050, L505.5000 ####[facility] [address] [place] [address] COCAINE Negative Normal < 300 ng/mL [facility] Comment on above: Performed By: #### L 100.0100, L501.9100, L700.6800, L500.4050, L505.5000 ####[facility] [address] [place] [address] Fentanyl Negative Normal [facility] Comment on above: Performed By: #### L 100.0100, L501.9100, L700.6800, L500.4050, L505.5000 ####[facility] [address] [place] [address] METHADONE Negative Normal < 300 ng/mL [facility] Comment on above: Performed By: #### L 100.0100, L501.9100, L700.6800, L500.4050, L505.5000 ####[facility] [address] [place] [address] OPIATES Negative Normal < 300 ng/mL [facility] Comment on above: Performed By: #### L 100.0100, L501.9100, L700.6800, L500.4050, L505.5000 ####[facility] [address] [place] [address] OXYCODONE Negative Normal < 100 ng/mL [facility] Comment on above: Performed By: #### L 100.0100, L501.9100, L700.6800, L500.4050, L505.5000 ####[facility] [address] [place] [id number] PCP Negative Normal < 25 ng/mL [facility] Comment on above: Performed By: #### L 100.0100, L501.9100, L700.6800, L500.4050, L505.5000 ####[facility] [address], [address] THC Negative Normal < 50 ng/mL [facility] Comment on above: Performed By: #### L 100.0100, L501.9100, L700.6800, L500.4050, L505.5000 ####[facility] [address] [place], [address] Absolute lymphocyte countOrd ered By: Andrew Maurice on 05-24-2025 Lymphocytes Auto (Unsp spec) [#/Vol] 3.57 10*3/uL 0.83-4.51 [facility] Absolute neutrophil countOrd ered By: Andrew Maurice on 05-24-2025 Neutrophils (Bld) [#/Vol] 4.3 10*3/uL 2.0-7.7 [facility] Amphetamine detection with 1 000 ng/mL as cutoffOrdered By: Andrew Maurice on 05-24-2025 Amphetamines Screen method >1000 ng/mL Ql (U) Negative <1000 ng/mL [facility] Amphetamines Screen method >1000 ng/mL Ql (U) Positive < 200 ng/mL [facility] Comment on above: If confirmation test ing is needed, a separate order will be required to send out testing to the reference laboratory. Anion gap in Serum or Plasma Ordered By: Andrew Maurice on 05-24-2025 Anion gap [Moles/Vol] 21 mmol/L High 5-15 [facility] Automated lymphocyte count a s percentage of total leukocytesOrdered By: Andrew Maurice on 05-24-2025 Lymphocytes/100 WBC Auto (Unsp spec) 41.1 % High 19-41 [facility] BUN/creatinine ratioOrdered By: Andrew Maurice on 05-24-2025 Urea nitrogen/Creatinine [Mass ratio] 11.4 mg/mg 10-20 [facility] Basophil percentageOrdered B y: Andrew Maurice on 05-24-2025 Basophils/100 WBC (Bld) 0.5 % 0-1 [facility] Bilirubin Test strip Ql (U)O rdered By: Andrew Maurice on 05-24-2025 Bilirubin Ql (U) Negative Negative [facility] Bilirubin, totalOrdered By: Andrew Maurice on 05-24-2025 Bilirubin [Mass/Vol] 0.37 mg/dL 0.00-1.30 [facility] Carbon dioxide, total [Moles /volume] in Central venous bloodOrdered By: Andrew Maurice on 05-24-2025 CO2 [Moles/Vol] 20.9 mmol/L Low 21.0-32.0 [facility] Chloride assayOrdered By: Yusef Maurice on 05-24-2025 Chloride [Moles/Vol] 98 mmol/L 98-108 [facility] Eosinophil percentageOrdered By: Andrew Maurice on 05-24-2025 Eosinophils/100 WBC (Bld) 0.7 % 0-5 [facility] Erythrocyte distribution wid th ratioOrdered By: Andrew Maurice on 05-24-2025 Erythrocyte distribution width (RBC) [Ratio] 13.1 % 11.6-14.6 [facility] Erythrocyte distribution wid th standard deviationOrdered By: Andrew Small on 05-24-2025 Erythrocyte distribution width (RBC) [Ratio] 47.9 fl High 35.1-43.9 [facility] Glomerular filtration rate ( GFR) estimation/1.73 sq m using serum, plasma, or whole bOrdered By: Andrew Maurice on 05-24-2025 GFR/1.73 sq M.predicted among non-blacks MDRD (S/P/Bld) [Vol rate/Area] 104 mL/min/{1.73_m2} >60 [facility] Comment on above: mL/min/1.73m2 CKD-EP I Creatinine Equation (2020) Hematocrit Auto (Bld) [Volum e fraction]Ordered By: Andrew Maurice on 05-24-2025 Hematocrit (Bld) [Volume fraction] 38.3 % 37-47 [facility] Hemoglobin measurementOrdere d By: Andrew Maurice on 05-24-2025 Hemoglobin (Bld) [Mass/Vol] 13.2 g/dL 12.0-15.0 [facility] Immature granulocytes/100 WB C Auto (Bld)Ordered By: Andrew Maurice on 05-24-2025 Immature granulocytes/100 WBC (Bld) 0.100 % 0.0-0.9 [facility] Comment on above: IG% - Immature Granu locytes (promyelocytes, myelocytes and metamyelocytes) > 1% indicates that a LEFT SHIFT is Present. Ketones Test strip Ql (U)Ord ered By: Andrew Maurice on 05-24-2025 Ketones Ql (U) 5 mg/dl High Negative [facility] Laboratory - Chemistry and C hemistry - challengeOrdered By: Andrewmark Maurice on 05-24-2025 AST [Catalytic activity/Vol] 45 U/L High <32 [facility] Comment on above: Hemolysis present, R esults could be affected. MCV (mean corpuscular volume ) determinationOrdered By: Andrew Maurice on 05-24-2025 MCV (RBC) [Entitic vol] 100.3 fL High 81-99 [facility] Mean corpuscular hemoglobin (MCH) determinationOrdered By: Andrew Maurice on 05-24-2025 MCH (RBC) [Entitic mass] 34.6 pg High 27.0-32.0 [facility] Mean corpuscular hemoglobin concentration (MCHC) determinationOrdered By: Andrew Maurice on 05-24-2025 MCHC (RBC) [Mass/Vol] 34.5 g/dL 32-36 [facility] Mean platelet volume determi nationOrdered By: Andrew Maurice on 05-24-2025 Platelet mean volume (Bld) [Entitic vol] 10.0 fL 6.2-12.0 [facility] Microscopic analysis of urin e for red blood cells (RBC)Ordered By: Andrew Maurice on 05-24-2025 Microscopic analysis of urine for red blood cells (RBC) 0-5 SEEN /hpf 0-5 [facility] Monocyte percentageOrdered B y: Andrew Maurice on 05-24-2025 Monocytes/100 WBC (Bld) 7.7 % 0-10 [facility] Mucus LM Ql (Urine sed)Order ed By: Andrew Maurice on 05-24-2025 Mucus Ql (Urine sed) 0 SEEN /hpf [facility] Neutrophil percentageOrdered By: Andrew Maurice on 05-24-2025 Neutrophils/100 WBC (Bld) 49.9 % 47-70 [facility] Nitrite Test strip Ql (U)Ord ered By: Andrew Maurice on 05-24-2025 Nitrite Ql (U) Negative Negative [facility] No Panel InformationOrdered By: Andrew Maurice on 05-24-2025 Urine Buprenorphine Qualitative Negative < 200 ng/mL [facility] Urine Oxycodone Screen Negative < 100 ng/mL [facility] 45 U/L High <32 [facility] Negative < 200 ng/mL [facility] Nucleated red blood cell per centageOrdered By: Andrew Maurice on 05-24-2025 Nucleated RBC/100 WBC (Bld) [Ratio] 0 % 0-5 [facility] Platelet countOrdered By: Yusef Maurice on 05-24-2025 Platelets (Bld) [#/Vol] 187 10*3/uL 150-450 [facility] Potassium measurement (mass/ volume)Ordered By: Andrew Maurice on 05-24-2025 Potassium (Unsp spec) [Mass/Vol] 4.1 mmol/L 3.3-5.1 [facility] Comment on above: Hemolysis present, R esults could be affected. Protein Test strip Ql (U)Ord ered By: Andrew Maurice on 05-24-2025 Protein Ql (U) 30 mg/dl High Negative [facility] Quantitative urine opiates m easurementOrdered By: Andrew Maurice on 05-24-2025 Opiates Ql (U) Negative < 300 ng/mL [facility] RBC Auto (Bld) [#/Vol]Ordere d By: Andrew Maurice on 05-24-2025 RBC (Bld) [#/Vol] 3.82 10*6/uL Low 4.2-5.4 [facility] Screening urine fentanyl alexis surementOrdered By: Andrew Maurice on 05-24-2025 fentaNYL Screen Ql (U) Negative [facility] Serum beta-hCG test, qualita tiveOrdered By: Andrew Maurice on 05-24-2025 Beta HCG ( test) Ql Negative [facility] Serum creatinine measurement (mass/volume)Ordered By: Andrew Maurice on 05-24-2025 Creatinine [Mass/Vol] 0.72 mg/dL 0.70-1.20 [facility] Serum globulin measurementOr dered By: Andrew Maurice on 05-24-2025 Globulin (S) [Mass/Vol] 3.4 g/dL 2.2-4.2 [facility] Serum glucose measurement (m ass/volume)Ordered By: Andrew Maurice on 05-24-2025 Glucose [Mass/Vol] 84 mg/dL 70-99 [facility] Serum or plasma alanine wilkerson otransferase (ALT) measurementOrdered By: Anderw Maurice on 05-24-2025 ALT [Catalytic activity/Vol] 29 U/L <35 [facility] Serum or plasma albumin alphonso urement (mass/volume)Ordered By: Andrew Small on 05-24-2025 Albumin [Mass/Vol] 4.1 g/dL 3.5-5.0 [facility] Serum or plasma albumin/glob ulin mass ratioOrdered By: Andrew Maurice on 05-24-2025 Albumin/Globulin [Mass ratio] 1.2 {ratio} 0.9-2.4 [facility] Serum or plasma alkaline trinity sphatase measurementOrdered By: Andrew Maurice on 05-24-2025 ALP [Catalytic activity/Vol] 115 U/L High 35-104 [facility] Serum or plasma calcium alphonso urement (mass/volume)Ordered By: Andrew Small on 05-24-2025 Calcium [Mass/Vol] 8.7 mg/dL 7.6-11.0 [facility] Serum or plasma ethanol alphonso urement (mass/volume)Ordered By: Andrew Small on 05-24-2025 Ethanol [Mass/Vol] 312.0 mg/dL Critically high <10.1 [facility] Comment on above: Critical Result(s) C alled at 0100: by: OTTO TO LSPARR Results read back by same.This test is for medical purposes only. The legal definition of intoxication varies according to local law. Serum or plasma urea nitroge n measurement (mass/volume)Ordered By: Andrew Maurice on 05-24-2025 Urea nitrogen [Mass/Vol] 8 mg/dL 4-19 [facility] Sodium levelOrdered By: Alfie Maurice on 05-24-2025 Sodium [Moles/Vol] 140 mmol/L 133-145 [facility] Squamous epithelial cells de tection in urine sediment by light microscopyOrdered By: Andrew Maurice on 05-24-2025 Epithelial cells.squamous LM Ql (Urine sed) 5-10 SEEN /hpf 5-10 [facility] Total proteinOrdered By: Last Maurice on 05-24-2025 Protein [Mass/Vol] 7.5 g/dL 5.9-8.4 [facility] Urine benzodiazepine levelOr dered By: Andrew Maurice on 05-24-2025 Benzodiazepines Ql (U) Positive < 200 ng/mL [facility] Comment on above: If confirmation test ing is needed, a separate order will be required to send out testing to the reference laboratory. Urine clarityOrdered By: Last Maurice on 05-24-2025 Clarity (U) Clear Clear [facility] Urine cocaine levelOrdered B y: Andrew Maurice on 05-24-2025 Cocaine Ql (U) Negative < 300 ng/mL [facility] Urine color determinationOrd ered By: Andrew Maurice on 05-24-2025 Color (U) Yellow Yellow [facility] Urine ggkxl-7-tbzygynryncjyf abinol (THC) measurementOrdered By: Andrew Small on 05-24-2025 Cannabinoids Screen Ql (U) Negative < 50 ng/mL [facility] Urine glucose detectionOrder ed By: Andrew Maurice on 05-24-2025 Glucose Ql (U) Normal mg/dl Normal [facility] Urine leukocyte esterase det ection by dipstickOrdered By: Andrew Maurice on 05-24-2025 Leukocyte esterase Test strip Ql (U) 25 /ul High Negative [facility] Urine pHOrdered By: Andrew Barrera on 05-24-2025 pH (U) 6.0 [pH] 5.0 - 8.0 [facility] Urine phencyclidine (PCP) de tectionOrdered By: Andrew Maurice on 05-24-2025 Phencyclidine Ql (U) Negative < 25 ng/mL [facility] Urine sediment bacteria coun t by microscopy (number/high power field)Ordered By: Andrew Maurice on 05-24-2025 Bacteria LM.HPF (Urine sed) [#/Area] 0 /[HPF] None Seen [facility] Urine specific gravity measu rementOrdered By: Andrew Maurice on 05-24-2025 Specific gravity (U) [Rel density] 1.015 1.002-1.030 [facility] Urine urobilinogen measureme ntOrdered By: Andrew Maurice on 05-24-2025 Urobilinogen Ql (U) Normal mg/dl Normal [facility] White blood cell (WBC) count Ordered By: Andrew Maurice on 05-24-2025 WBC (Bld) [#/Vol] 8.7 10*3/uL 4.4-11.0 [facility] White blood cell countOrdere d By: Andrew Maurice on 05-24-2025 White blood cell count 0-5 SEEN /hpf 0-5 [facility] Bedside Glucoseon 05-06-2025 FINGERSTICK GLU 358 mg/dL High 74-106 [facility] Comment on above: Result Comment: CHAUNCEY GEMENT OF PATIENT CARE PER NURSING PROTOCOL Performed By: #### L 501.080 ####[facility] [address] [facility] [address] FINGERSTICK GLU 219 mg/dL High 74-106 [facility] Comment on above: Result Comment: CHAUNCEY GEMENT OF PATIENT CARE PER NURSING PROTOCOL Performed By: #### L 501.080 ####[facility] [address] [facility] [address] Discharge Instructionon 06- Discharge Instruction Normal [facility] Glucose measurement at [facility] deOrdered By: Mao Becker on 05-06-2025 Glucose [Mass/Vol] 358 mg/dL High 74-106 [facility] Comment on above: MANAGEMENT OF PATIEN T CARE PER NURSING PROTOCOL Bedside Glucoseon 05-05-2025 FINGERSTICK GLU 331 mg/dL High 74-106 [facility] Comment on above: Result Comment: CHAUNCEY GEMENT OF PATIENT CARE PER NURSING PROTOCOL Performed By: #### L 501.080 ####[facility] [address] [facility] [address] FINGERSTICK GLU 257 mg/dL High 74-106 [facility] Comment on above: Result Comment: CHAUNCEY GEMENT OF PATIENT CARE PER NURSING PROTOCOL Performed By: #### L 501.080 ####[facility] [address] [place], [address] FINGERSTICK GLU 346 mg/dL High 74-106 [facility] Comment on above: Result Comment: CHAUNCEY GEMENT OF PATIENT CARE PER NURSING PROTOCOL Performed By: #### L 501.080 ####[facility] [address] [place], [address] FINGERSTICK GLU 221 mg/dL High 74-106 [facility] Comment on above: Result Comment: CHAUNCEY GEMENT OF PATIENT CARE PER NURSING PROTOCOL Performed By: #### L 501.080 ####[facility] [address] [place], [address] Absolute lymphocyte countOrd ered By: Canelo Myers on 05-04-2025 Lymphocytes Auto (Unsp spec) [#/Vol] 1.36 10*3/uL 0.83-4.51 [facility] Absolute neutrophil countOrd ered By: Canelo Myers on 05-04-2025 Neutrophils (Bld) [#/Vol] 3.4 10*3/uL 2.0-7.7 [facility] Anion gap in Serum or Plasma Ordered By: Canelo Myers on 05-04-2025 Anion gap [Moles/Vol] 11 mmol/L 5-15 [facility] Automated lymphocyte count a s percentage of total leukocytesOrdered By: Canelo Myers on 05-04-2025 Lymphocytes/100 WBC Auto (Unsp spec) 23.0 % 19-41 [facility] BUN/creatinine ratioOrdered By: Canelo Myers on 05-04-2025 Urea nitrogen/Creatinine [Mass ratio] 9.6 mg/mg Low 10-20 [facility] Basophil percentageOrdered B y: Canelo Myers on 05-04-2025 Basophils/100 WBC (Bld) 0.5 % 0-1 [facility] Bedside Glucoseon 05-04-2025 FINGERSTICK GLU 299 mg/dL High 74-106 [facility] Comment on above: Result Comment: CHAUNCEY GEMENT OF PATIENT CARE PER NURSING PROTOCOL Performed By: #### L 501.080 ####[facility] [address] [place], [address] FINGERSTICK GLU 299 mg/dL High 74-106 [facility] Comment on above: Result Comment: CHAUNCEY GEMENT OF PATIENT CARE PER NURSING PROTOCOL Performed By: #### L 501.080 ####[facility] [address] [place], [address] FINGERSTICK GLU 245 mg/dL High 74-106 [facility] Comment on above: Result Comment: CHAUNCEY GEMENT OF PATIENT CARE PER NURSING PROTOCOL Performed By: #### L 501.080 ####[facility] [address] [place], [address] FINGERSTICK GLU 170 mg/dL High 74-106 [facility] Comment on above: Result Comment: CHAUNCEY GEMENT OF PATIENT CARE PER NURSING PROTOCOL Performed By: #### L 501.080 ####[facility] [address] [place], [address] Bilirubin, totalOrdered By: Canelo Myers on 05-04-2025 Bilirubin [Mass/Vol] 0.35 mg/dL 0.00-1.30 [facility] CBC W/Diff, Automatedon Absolute Lymph 1.36 X10 3/uL Normal 0.83-4.51 [facility] Comment on above: Performed By: #### L 100.0100, L500.4050 ####[facility] [address] [place], [address] Absolute Neut 3.4 X10 3/uL Normal 2.0-7.7 [facility] Comment on above: Performed By: #### L 100.0100, L500.4050 ####[facility] [address] [place], [address] Basophils/100 WBC (Bld) 0.5 % Normal 0-1 [facility] Comment on above: Performed By: #### L 100.0100, L500.4050 ####[facility] [address] [place], [address] Eosinophils/100 WBC (Bld) 2.7 % Normal 0-5 [facility] Comment on above: Performed By: #### L 100.0100, L500.4050 ####[facility] [address] [place], [address] Erythrocyte distribution width (RBC) [Ratio] 12.8 % Normal 11.6-14.6 [facility] Comment on above: Performed By: #### L 100.0100, L500.4050 ####[facility] [address] [place], [address] Hematocrit (Bld) [Volume fraction] 30.6 % Low 37-47 [facility] Comment on above: Performed By: #### L 100.0100, L500.4050 ####[facility] [address] [place], [address] Hemoglobin (Bld) [Mass/Vol] 10.3 g/dL Low 12.0-15.0 [facility] Comment on above: Performed By: #### L 100.0100, L500.4050 ####[facility] [address] [place], [address] IG% 0.300 Normal 0.0-0.9 [facility] Comment on above: Result Comment: IG% - Immature Granulocytes (promyelocytes, myelocytes andmetamyelocytes) > 1% indicates that a LEFT SHIFT is Present. Performed By: #### L 100.0100, L500.4050 ####[facility] [address] [place], [address] Lymphocytes/100 WBC (Bld) 23.0 % Normal 19-41 [facility] Comment on above: Performed By: #### L 100.0100, L500.4050 ####[facility] [address] [place], [address] MCH (RBC) [Entitic mass] 35.8 pg High 27.0-32.0 [facility] Comment on above: Performed By: #### L 100.0100, L500.4050 ####[facility] [address] [place], [address] MCHC (RBC) [Mass/Vol] 33.7 g/dL Normal 32-36 [facility] Comment on above: Performed By: #### L 100.0100, L500.4050 ####[facility] [address] [place], [address] MCV (RBC) [Entitic vol] 106.3 fL High 81-99 [facility] Comment on above: Performed By: #### L 100.0100, L500.4050 ####[facility] [address] [place], [address] Monocytes/100 WBC (Bld) 15.4 % High 0-10 [facility] Comment on above: Performed By: #### L 100.0100, L500.4050 ####[facility] [address] [place], [address] Neutrophils/100 WBC (Bld) 58.1 % Normal 47-70 [facility] Comment on above: Performed By: #### L 100.0100, L500.4050 ####[facility] [address] [place], [address] Nucleated RBC (Bld) [#/Vol] 0 10*3/uL Normal 0-5 [facility] Comment on above: Performed By: #### L 100.0100, L500.4050 ####[facility] [address] [place], [address] Platelet mean volume (Bld) [Entitic vol] 10.3 fL Normal 6.2-12.0 [facility] Comment on above: Performed By: #### L 100.0100, L500.4050 ####[facility] [address] [place], [address] Platelets (Bld) [#/Vol] 376 10*3/uL Normal 150-450 [facility] Comment on above: Performed By: #### L 100.0100, L500.4050 ####[facility] [address] [place], [address] RBC (Bld) [#/Vol] 2.88 10*6/uL Low 4.2-5.4 [facility] Comment on above: Performed By: #### L 100.0100, L500.4050 ####[facility] [address] [place], [address] RDW SD 49.9 fl High 35.1-43.9 [facility] Comment on above: Performed By: #### L 100.0100, L500.4050 ####[facility] [address] [place], [address] WBC (Bld) [#/Vol] 5.9 10*3/uL Normal 4.4-11.0 [facility] Comment on above: Performed By: #### L 100.0100, L500.4050 ####[facility] [address] [place], [address] Carbon dioxide, total [Moles /volume] in Central venous bloodOrdered By: Canelo Myers on 05-04-2025 CO2 [Moles/Vol] 27.3 mmol/L 21.0-32.0 [facility] Chloride assayOrdered By: Henrry Myers on 05-04-2025 Chloride [Moles/Vol] 96 mmol/L Low 98-108 [facility] Comprehensive Metabolic Prof ilon 05-04-2025 Albumin [Mass/Vol] 3.4 g/dL Low 3.5-5.0 [facility] Comment on above: Performed By: #### L 100.0100, L500.4050 ####[facility] [address] [place], [address] Albumin/Globulin [Mass ratio] 1.1 {ratio} Normal 0.9-2.4 [facility] Comment on above: Performed By: #### L 100.0100, L500.4050 ####[facility] [address] [place], [address] ALK PHOS 441 U/L High 35-104 [facility] Comment on above: Performed By: #### L 100.0100, L500.4050 ####[facility] [address] [place], [address] ALT [Catalytic activity/Vol] 45 U/L High <=34 [facility] Comment on above: Performed By: #### L 100.0100, L500.4050 ####[facility] [address] [place], [address] AST [Catalytic activity/Vol] 51 U/L High <=31 [facility] Comment on above: Performed By: #### L 100.0100, L500.4050 ####[facility] [address] [place], [address] Bilirubin [Mass/Vol] 0.35 mg/dL Normal 0.00-1.30 [facility] Comment on above: Performed By: #### L 100.0100, L500.4050 ####[facility] [address] [place], [address] BUN/CRE 9.6 RATIO Low 10-20 [facility] Comment on above: Performed By: #### L 100.0100, L500.4050 ####[facility] [address] [place], [address] Calcium [Mass/Vol] 9.3 mg/dL Normal 7.6-11.0 [facility] Comment on above: Performed By: #### L 100.0100, L500.4050 ####[facility] [address] [place], [address] Chloride [Moles/Vol] 96 mmol/L Low 98-108 [facility] Comment on above: Performed By: #### L 100.0100, L500.4050 ####[facility] [address] [place], [address] CO2 [Moles/Vol] 27.3 mmol/L Normal 21.0-32.0 [facility] Comment on above: Performed By: #### L 100.0100, L500.4050 ####[facility] [address] [place], [address] Creatinine [Mass/Vol] 0.63 mg/dL Low 0.70-1.20 [facility] Comment on above: Performed By: #### L 100.0100, L500.4050 ####[facility] [address] [place], [address] ECRCL 94.30 ml/min Normal 50-250 [facility] Comment on above: Performed By: #### L 100.0100, L500.4050 ####[facility] [facility] [address] [place], [address] GAP 11 Normal 5-15 [facility] Comment on above: Performed By: #### L 100.0100, L500.4050 ####[facility] [address] [place], [address] GFR/1.73 sq M.predicted among non-blacks MDRD (S/P/Bld) [Vol rate/Area] 109 mL/min/{1.73_m2} Normal >60 [facility] Comment on above: Result Comment: mL/m in/1.73m2 CKD-EPI Creatinine Equation (2020) Performed By: #### L 100.0100, L500.4050 ####[facility] [address] [place], [address] Globulin (S) [Mass/Vol] 2.9 g/dL Normal 2.2-4.2 [facility] Comment on above: Performed By: #### L 100.0100, L500.4050 ####[facility] [address] [place], [address] Glucose [Mass/Vol] 171 mg/dL High 70-99 [facility] Comment on above: Performed By: #### L 100.0100, L500.4050 ####[facility] [address] [place], [address] Potassium [Moles/Vol] 4.7 mmol/L Normal 3.3-5.1 [facility] Comment on above: Performed By: #### L 100.0100, L500.4050 ####[facility] [address] [place], [address] Sodium [Moles/Vol] 134 mmol/L Normal 133-145 [facility] Comment on above: Performed By: #### L 100.0100, L500.4050 ####[facility] [address] [place], [address] T PROT 6.3 g/dL Normal 5.9-8.4 [facility] Comment on above: Performed By: #### L 100.0100, L500.4050 ####[facility] [address] [place], [address] Urea nitrogen [Mass/Vol] 6 mg/dL Normal 4-19 [facility] Comment on above: Performed By: #### L 100.0100, L500.4050 ####[facility] [address] [place], [address] Eosinophil percentageOrdered By: Canelo Myers on 05-04-2025 Eosinophils/100 WBC (Bld) 2.7 % 0-5 [facility] Erythrocyte distribution wid th ratioOrdered By: Canelo Myers on 05-04-2025 Erythrocyte distribution width (RBC) [Ratio] 12.8 % 11.6-14.6 [facility] Erythrocyte distribution wid th standard deviationOrdered By: Canelo Myers on 05-04-2025 Erythrocyte distribution width (RBC) [Ratio] 49.9 fl High 35.1-43.9 [facility] Glomerular filtration rate ( GFR) estimation/1.73 sq m using serum, plasma, or whole bOrdered By: Canelo Myers on 05-04-2025 GFR/1.73 sq M.predicted among non-blacks MDRD (S/P/Bld) [Vol rate/Area] 109 mL/min/{1.73_m2} >60 [facility] Comment on above: mL/min/1.73m2 CKD-EP I Creatinine Equation (2020) Hematocrit Auto (Bld) [Volum e fraction]Ordered By: Canelo Myers on 05-04-2025 Hematocrit (Bld) [Volume fraction] 30.6 % Low 37-47 [facility] Hemoglobin measurementOrdere d By: Canelo Myers on 05-04-2025 Hemoglobin (Bld) [Mass/Vol] 10.3 g/dL Low 12.0-15.0 [facility] Immature granulocytes/100 WB C Auto (Bld)Ordered By: Canelo Myers on 05-04-2025 Immature granulocytes/100 WBC (Bld) 0.300 % 0.0-0.9 [facility] Comment on above: IG% - Immature Granu locytes (promyelocytes, myelocytes and metamyelocytes) > 1% indicates that a LEFT SHIFT is Present. Laboratory - Chemistry and C hemistry - challengeOrdered By: Canelo Myers on 05-04-2025 AST [Catalytic activity/Vol] 51 U/L High <32 [facility] MCV (mean corpuscular volume ) determinationOrdered By: Canelo Myers on 05-04-2025 MCV (RBC) [Entitic vol] 106.3 fL High 81-99 [facility] Mean corpuscular hemoglobin (MCH) determinationOrdered By: Canelo Myers on 05-04-2025 MCH (RBC) [Entitic mass] 35.8 pg High 27.0-32.0 [facility] Mean corpuscular hemoglobin concentration (MCHC) determinationOrdered By: Canelo Myers on 05-04-2025 MCHC (RBC) [Mass/Vol] 33.7 g/dL 32-36 [facility] Mean platelet volume determi nationOrdered By: Canelo Myers on 05-04-2025 Platelet mean volume (Bld) [Entitic vol] 10.3 fL 6.2-12.0 [facility] Monocyte percentageOrdered B y: Canelo Myers on 05-04-2025 Monocytes/100 WBC (Bld) 15.4 % High 0-10 [facility] Neutrophil percentageOrdered By: Canelo Myers on 05-04-2025 Neutrophils/100 WBC (Bld) 58.1 % 47-70 [facility] No Panel InformationOrdered By: Canelo Myers on 05-04-2025 51 U/L High <32 [facility] Nucleated red blood cell per centageOrdered By: aCnelo Myers on 05-04-2025 Nucleated RBC/100 WBC (Bld) [Ratio] 0 % 0-5 [facility] Platelet countOrdered By: Henrry Myers on 05-04-2025 Platelets (Bld) [#/Vol] 376 10*3/uL 150-450 [facility] Potassium measurement (mass/ volume)Ordered By: Canelo Myers on 05-04-2025 Potassium (Unsp spec) [Mass/Vol] 4.7 mmol/L 3.3-5.1 [facility] RBC Auto (Bld) [#/Vol]Ordere d By: Canelo Myers on 05-04-2025 RBC (Bld) [#/Vol] 2.88 10*6/uL Low 4.2-5.4 [facility] Serum creatinine measurement (mass/volume)Ordered By: Canelo Myers on 05-04-2025 Creatinine [Mass/Vol] 0.63 mg/dL Low 0.70-1.20 [facility] Serum globulin measurementOr dered By: Canelo Myers on 05-04-2025 Globulin (S) [Mass/Vol] 2.9 g/dL 2.2-4.2 [facility] Serum glucose measurement (m ass/volume)Ordered By: Canelo Myers on 05-04-2025 Glucose [Mass/Vol] 171 mg/dL High 70-99 [facility] Serum or plasma alanine wilkerson otransferase (ALT) measurementOrdered By: Canelo Myers on 05-04-2025 ALT [Catalytic activity/Vol] 45 U/L High <35 [facility] Serum or plasma albumin alphonso urement (mass/volume)Ordered By: Canelo Myers on 05-04-2025 Albumin [Mass/Vol] 3.4 g/dL Low 3.5-5.0 [facility] Serum or plasma albumin/glob ulin mass ratioOrdered By: Canelo Myers on 05-04-2025 Albumin/Globulin [Mass ratio] 1.1 {ratio} 0.9-2.4 [facility] Serum or plasma alkaline trinity sphatase measurementOrdered By: Canelo Myers on 05-04-2025 ALP [Catalytic activity/Vol] 441 U/L High 35-104 [facility] Serum or plasma calcium alphonso urement (mass/volume)Ordered By: Canelo Myers on 05-04-2025 Calcium [Mass/Vol] 9.3 mg/dL 7.6-11.0 [facility] Serum or plasma urea nitroge n measurement (mass/volume)Ordered By: Canelo Myers on 05-04-2025 Urea nitrogen [Mass/Vol] 6 mg/dL 4-19 [facility] Sodium levelOrdered By: Ganesh Myers on 05-04-2025 Sodium [Moles/Vol] 134 mmol/L 133-145 [facility] Total proteinOrdered By: Guido Myers on 05-04-2025 Protein [Mass/Vol] 6.3 g/dL 5.9-8.4 [facility] White blood cell (WBC) count Ordered By: Canelo Myers on 05-04-2025 WBC (Bld) [#/Vol] 5.9 10*3/uL 4.4-11.0 [facility] Bedside Glucoseon 05-03-2025 FINGERSTICK GLU 230 mg/dL High 74-106 [facility] Comment on above: Result Comment: CHAUNCEY RIZO OF PATIENT CARE PER NURSING PROTOCOL Performed By: #### L 501.080 ####[facility] [address] [place], [address] FINGERSTICK GLU 237 mg/dL High 74-106 [facility] Comment on above: Result Comment: CHAUNCEY GEMENT OF PATIENT CARE PER NURSING PROTOCOL Performed By: #### L 501.080 ####[facility] [address] [place], [address] FINGERSTICK GLU 220 mg/dL High 74-106 [facility] Comment on above: Result Comment: CHAUNCEY GEMENT OF PATIENT CARE PER NURSING PROTOCOL Performed By: #### L 501.080 ####[facility] [address] [place], [address] CBC W/Diff, Automatedon 06-0 5-5 Absolute Lymph 1.14 X10 3/uL Normal 0.83-4.51 [facility] Comment on above: Performed By: #### L 100.0100, L500.4050 ####[facility] [address] [place], [address] Absolute Neut 3.5 X10 3/uL Normal 2.0-7.7 [facility] Comment on above: Performed By: #### L 100.0100, L500.4050 ####[facility] [address] [place], [address] Basophils/100 WBC (Bld) 0.7 % Normal 0-1 [facility] Comment on above: Performed By: #### L 100.0100, L500.4050 ####[facility] [address] [place], [address] Eosinophils/100 WBC (Bld) 3.1 % Normal 0-5 [facility] Comment on above: Performed By: #### L 100.0100, L500.4050 ####[facility] [address] [place], [address] Erythrocyte distribution width (RBC) [Ratio] 12.5 % Normal 11.6-14.6 [facility] Comment on above: Performed By: #### L 100.0100, L500.4050 ####[facility] [address] [place], [address] Hematocrit (Bld) [Volume fraction] 31.0 % Low 37-47 [facility] Comment on above: Performed By: #### L 100.0100, L500.4050 ####[facility] [address] [place], [address] Hemoglobin (Bld) [Mass/Vol] 10.4 g/dL Low 12.0-15.0 [facility] Comment on above: Performed By: #### L 100.0100, L500.4050 ####[facility] [address] [place], [address] IG% 0.300 Normal 0.0-0.9 [facility] Comment on above: Result Comment: IG% - Immature Granulocytes (promyelocytes, myelocytes andmetamyelocytes) > 1% indicates that a LEFT SHIFT is Present. Performed By: #### L 100.0100, L500.4050 ####[facility] [address] [place], [address] Lymphocytes/100 WBC (Bld) 19.7 % Normal 19-41 [facility] Comment on above: Performed By: #### L 100.0100, L500.4050 ####[facility] [address] [place], [address] MCH (RBC) [Entitic mass] 35.6 pg High 27.0-32.0 [facility] Comment on above: Performed By: #### L 100.0100, L500.4050 ####[facility] [address] [place], [address] MCHC (RBC) [Mass/Vol] 33.5 g/dL Normal 32-36 [facility] Comment on above: Performed By: #### L 100.0100, L500.4050 ####[facility] [address] [place], [address] MCV (RBC) [Entitic vol] 106.2 fL High 81-99 [facility] Comment on above: Performed By: #### L 100.0100, L500.4050 ####[facility] [address] [place], [address] Monocytes/100 WBC (Bld) 15.1 % High 0-10 [facility] Comment on above: Performed By: #### L 100.0100, L500.4050 ####[facility] [address] [place], [address] Neutrophils/100 WBC (Bld) 61.1 % Normal 47-70 [facility] Comment on above: Performed By: #### L 100.0100, L500.4050 ####[facility] [address] [place], [address] Nucleated RBC (Bld) [#/Vol] 0 10*3/uL Normal 0-5 [facility] Comment on above: Performed By: #### L 100.0100, L500.4050 ####[facility] [address] [place], [address] Platelet mean volume (Bld) [Entitic vol] 10.2 fL Normal 6.2-12.0 [facility] Comment on above: Performed By: #### L 100.0100, L500.4050 ####[facility] [address] [place], [address] Platelets (Bld) [#/Vol] 297 10*3/uL Normal 150-450 [facility] Comment on above: Performed By: #### L 100.0100, L500.4050 ####[facility] [address] [place], [address] RBC (Bld) [#/Vol] 2.92 10*6/uL Low 4.2-5.4 [facility] Comment on above: Performed By: #### L 100.0100, L500.4050 ####[facility] [address] [place], [address] RDW SD 49.1 fl High 35.1-43.9 [facility] Comment on above: Performed By: #### L 100.0100, L500.4050 ####[facility] [address] [place], [address] WBC (Bld) [#/Vol] 5.8 10*3/uL Normal 4.4-11.0 [facility] Comment on above: Performed By: #### L 100.0100, L500.4050 ####[facility] [address] [place], [address] Comprehensive Metabolic Prof [facility] 05-03-2025 Albumin [Mass/Vol] 3.1 g/dL Low 3.5-5.0 [facility] Comment on above: Performed By: #### L 100.0100, L500.4050 ####[facility] [address] [place], [address] Albumin/Globulin [Mass ratio] 1.1 {ratio} Normal 0.9-2.4 [facility] Comment on above: Performed By: #### L 100.0100, L500.4050 ####[facility] [address] [place], [address] ALK PHOS 311 U/L High 35-104 [facility] Comment on above: Performed By: #### L 100.0100, L500.4050 ####[facility] [address] [place], [address] ALT [Catalytic activity/Vol] 38 U/L High <=34 [facility] Comment on above: Performed By: #### L 100.0100, L500.4050 ####[facility] [address] [place], [address] AST [Catalytic activity/Vol] 48 U/L High <=31 [facility] Comment on above: Performed By: #### L 100.0100, L500.4050 ####[facility] [address] [place], [address] Bilirubin [Mass/Vol] 0.32 mg/dL Normal 0.00-1.30 [facility] Comment on above: Performed By: #### L 100.0100, L500.4050 ####[facility] [address] [place], [address] BUN/CRE 12.9 RATIO Normal 10-20 [facility] Comment on above: Performed By: #### L 100.0100, L500.4050 ####[facility] [address] [place], [address] Calcium [Mass/Vol] 8.5 mg/dL Normal 7.6-11.0 [facility] Comment on above: Performed By: #### L 100.0100, L500.4050 ####[facility] [address] [place], [address] Chloride [Moles/Vol] 97 mmol/L Low 98-108 [facility] Comment on above: Performed By: #### L 100.0100, L500.4050 ####[facility] [address] [place], [address] CO2 [Moles/Vol] 28.2 mmol/L Normal 21.0-32.0 [facility] Comment on above: Performed By: #### L 100.0100, L500.4050 ####[facility] [address] [place], [address] Creatinine [Mass/Vol] 0.58 mg/dL Low 0.70-1.20 [facility] Comment on above: Performed By: #### L 100.0100, L500.4050 ####[facility] [address] [place], [address] ECRCL 102.43 ml/min Normal 50-250 [facility] Comment on above: Performed By: #### L 100.0100, L500.4050 ####[facility] [address] [place], [address] GAP 9 Normal 5-15 [facility] Comment on above: Performed By: #### L 100.0100, L500.4050 ####[facility] [address] [place], [address] GFR/1.73 sq M.predicted among non-blacks MDRD (S/P/Bld) [Vol rate/Area] 112 mL/min/{1.73_m2} Normal >60 [facility] Comment on above: Result Comment: mL/m in/1.73m2 CKD-EPI Creatinine Equation (2020) Performed By: #### L 100.0100, L500.4050 ####[facility] [address] [place], [address] Globulin (S) [Mass/Vol] 2.8 g/dL Normal 2.2-4.2 [facility] Comment on above: Performed By: #### L 100.0100, L500.4050 ####[facility] [address] [place], [address] Glucose [Mass/Vol] 227 mg/dL High 70-99 [facility] Comment on above: Performed By: #### L 100.0100, L500.4050 ####[facility] [address] [place], [address] Potassium [Moles/Vol] 4.8 mmol/L Normal 3.3-5.1 [facility] Comment on above: Performed By: #### L 100.0100, L500.4050 ####[facility] [address] [place], [address] Sodium [Moles/Vol] 135 mmol/L Normal 133-145 [facility] Comment on above: Performed By: #### L 100.0100, L500.4050 ####[facility] [address] [place], [address] T PROT 5.9 g/dL Normal 5.9-8.4 [facility] Comment on above: Performed By: #### L 100.0100, L500.4050 ####[facility] [address] [place], [address] Urea nitrogen [Mass/Vol] 7 mg/dL Normal 4-19 [facility] Comment on above: Performed By: #### L 100.0100, L500.4050 ####[facility] [address] [place], [address] Bedside Glucoseon 05-02-2025 FINGERSTICK GLU 288 mg/dL High 74-106 [facility] Comment on above: Result Comment: CHAUNCEY GEMENT OF PATIENT CARE PER NURSING PROTOCOL Performed By: #### L 501.080 ####[facility] [address] [place], [address] FINGERSTICK GLU 198 mg/dL High 74-106 [facility] Comment on above: Result Comment: CHAUNCEY GEMENT OF PATIENT CARE PER NURSING PROTOCOL Performed By: #### L 501.080 ####[facility] [address] [place], [address] FINGERSTICK GLU 196 mg/dL High 74-106 [facility] Comment on above: Result Comment: CHAUNCEY GEMENT OF PATIENT CARE PER NURSING PROTOCOL Performed By: #### L 501.080 ####[facility] [address] [place], [address] CBC W/Diff, Automatedon 06-0 4-2024 Absolute Lymph 1.17 X10 3/uL Normal 0.83-4.51 [facility] Comment on above: Performed By: #### L 501.5200, L500.4050, L100.0100, L501.2300 ####[facility] [address] [place], [address] Absolute Neut 3.0 X10 3/uL Normal 2.0-7.7 [facility] Comment on above: Performed By: #### L 501.5200, L500.4050, L100.0100, L501.2300 ####[facility] [address] [place], [address] Basophils/100 WBC (Bld) 0.6 % Normal 0-1 [facility] Comment on above: Performed By: #### L 501.5200, L500.4050, L100.0100, L501.2300 ####[facility] [address] [place], [address] Eosinophils/100 WBC (Bld) 3.3 % Normal 0-5 [facility] Comment on above: Performed By: #### L 501.5200, L500.4050, L100.0100, L501.2300 ####[facility] [address] [place], [address] Erythrocyte distribution width (RBC) [Ratio] 12.5 % Normal 11.6-14.6 [facility] Comment on above: Performed By: #### L 501.5200, L500.4050, L100.0100, L501.2300 ####[facility] [address] [place], [address] Hematocrit (Bld) [Volume fraction] 30.1 % Low 37-47 [facility] Comment on above: Performed By: #### L 501.5200, L500.4050, L100.0100, L501.2300 ####[facility] [address] [place], [address] Hemoglobin (Bld) [Mass/Vol] 10.4 g/dL Low 12.0-15.0 [facility] Comment on above: Performed By: #### L 501.5200, L500.4050, L100.0100, L501.2300 ####[facility] [address] [place], [address] IG% 0.600 Normal 0.0-0.9 [facility] Comment on above: Result Comment: IG% - Immature Granulocytes (promyelocytes, myelocytes andmetamyelocytes) > 1% indicates that a LEFT SHIFT is Present. Performed By: #### L 501.5200, L500.4050, L100.0100, L501.2300 ####[facility] [address] [place], [address] Lymphocytes/100 WBC (Bld) 22.5 % Normal 19-41 [facility] Comment on above: Performed By: #### L 501.5200, L500.4050, L100.0100, L501.2300 ####[facility] [address] [place], [address] MCH (RBC) [Entitic mass] 36.9 pg High 27.0-32.0 [facility] Comment on above: Performed By: #### L 501.5200, L500.4050, L100.0100, L501.2300 ####[facility] [address] [place], [address] MCHC (RBC) [Mass/Vol] 34.6 g/dL Normal 32-36 [facility] Comment on above: Performed By: #### L 501.5200, L500.4050, L100.0100, L501.2300 ####[facility] [address] [place], [address] MCV (RBC) [Entitic vol] 106.7 fL High 81-99 [facility] Comment on above: Performed By: #### L 501.5200, L500.4050, L100.0100, L501.2300 ####[facility] [address] [place], [address] Monocytes/100 WBC (Bld) 15.8 % High 0-10 [facility] Comment on above: Performed By: #### L 501.5200, L500.4050, L100.0100, L501.2300 ####[facility] [address] [place], [address] Neutrophils/100 WBC (Bld) 57.2 % Normal 47-70 [facility] Comment on above: Performed By: #### L 501.5200, L500.4050, L100.0100, L501.2300 ####[facility] [address] [place], [address] Nucleated RBC (Bld) [#/Vol] 0 10*3/uL Normal 0-5 [facility] Comment on above: Performed By: #### L 501.5200, L500.4050, L100.0100, L501.2300 ####[facility] [address] [place], [address] Platelet mean volume (Bld) [Entitic vol] 10.3 fL Normal 6.2-12.0 [facility] Comment on above: Performed By: #### L 501.5200, L500.4050, L100.0100, L501.2300 ####[facility] [address] [place], [address] Platelets (Bld) [#/Vol] 247 10*3/uL Normal 150-450 [facility] Comment on above: Performed By: #### L 501.5200, L500.4050, L100.0100, L501.2300 ####[facility] [address] [place], [address] RBC (Bld) [#/Vol] 2.82 10*6/uL Low 4.2-5.4 [facility] Comment on above: Performed By: #### L 501.5200, L500.4050, L100.0100, L501.2300 ####[facility] [address] [place], [address] RDW SD 49.4 fl High 35.1-43.9 [facility] Comment on above: Performed By: #### L 501.5200, L500.4050, L100.0100, L501.2300 ####[facility] [address] [place], [address] WBC (Bld) [#/Vol] 5.2 10*3/uL Normal 4.4-11.0 [facility] Comment on above: Performed By: #### L 501.5200, L500.4050, L100.0100, L501.2300 ####[facility] [address] [place], [address] Comprehensive Metabolic [facility] 05-02-2025 Albumin [Mass/Vol] 3.1 g/dL Low 3.5-5.0 [facility] [facility] Comment on above: Performed By: #### L 501.5200, L500.4050, L100.0100, L501.2300 ####[facility] [address] [place], [address] Albumin/Globulin [Mass ratio] 1.2 {ratio} Normal 0.9-2.4 [facility] Comment on above: Performed By: #### L 501.5200, L500.4050, L100.0100, L501.2300 ####[facility] [address] [place], [address] ALK PHOS 230 U/L High 35-104 [facility] Comment on above: Performed By: #### L 501.5200, L500.4050, L100.0100, L501.2300 ####[facility] [address] [place], [address] ALT [Catalytic activity/Vol] 33 U/L Normal <=34 [facility] Comment on above: Performed By: #### L 501.5200, L500.4050, L100.0100, L501.2300 ####[facility] [address] [place], [address] AST [Catalytic activity/Vol] 40 U/L High <=31 [facility] Comment on above: Performed By: #### L 501.5200, L500.4050, L100.0100, L501.2300 ####[facility] [address] [place], [address] Bilirubin [Mass/Vol] 0.49 mg/dL Normal 0.00-1.30 [facility] Comment on above: Performed By: #### L 501.5200, L500.4050, L100.0100, L501.2300 ####[facility] [address] [place], [address] BUN/CRE 13.6 RATIO Normal 10-20 [facility] Comment on above: Performed By: #### L 501.5200, L500.4050, L100.0100, L501.2300 ####[facility] [address] [place], [address] Calcium [Mass/Vol] 8.7 mg/dL Normal 7.6-11.0 [facility] Comment on above: Performed By: #### L 501.5200, L500.4050, L100.0100, L501.2300 ####[facility] [address] [place], [address] Chloride [Moles/Vol] 95 mmol/L Low 98-108 [facility] Comment on above: Performed By: #### L 501.5200, L500.4050, L100.0100, L501.2300 ####[facility] [address] [place], [address] CO2 [Moles/Vol] 28.5 mmol/L Normal 21.0-32.0 [facility] Comment on above: Performed By: #### L 501.5200, L500.4050, L100.0100, L501.2300 ####[facility] [address] [place], [address] Creatinine [Mass/Vol] 0.52 mg/dL Low 0.70-1.20 [facility] Comment on above: Performed By: #### L 501.5200, L500.4050, L100.0100, L501.2300 ####[facility] [address] [place], [address] ECRCL 114.25 ml/min Normal 50-250 [facility] Comment on above: Performed By: #### L 501.5200, L500.4050, L100.0100, L501.2300 ####[facility] [address] [place], [address] GAP 11 Normal 5-15 [facility] Comment on above: Performed By: #### L 501.5200, L500.4050, L100.0100, L501.2300 ####[facility] [address] [place], [address] GFR/1.73 sq M.predicted among non-blacks MDRD (S/P/Bld) [Vol rate/Area] 115 mL/min/{1.73_m2} Normal >60 [facility] Comment on above: Result Comment: mL/m in/1.73m2 CKD-EPI Creatinine Equation (2020) Performed By: #### L 501.5200, L500.4050, L100.0100, L501.2300 ####[facility] [address] [place], [address] Globulin (S) [Mass/Vol] 2.7 g/dL Normal 2.2-4.2 [facility] Comment on above: Performed By: #### L 501.5200, L500.4050, L100.0100, L501.2300 ####[facility] [address] [place], [address] Glucose [Mass/Vol] 197 mg/dL High 70-99 [facility] Comment on above: Performed By: #### L 501.5200, L500.4050, L100.0100, L501.2300 ####[facility] [address] [place], [address] Potassium [Moles/Vol] 4.2 mmol/L Normal 3.3-5.1 [facility] Comment on above: Performed By: #### L 501.5200, L500.4050, L100.0100, L501.2300 ####[facility] [address] [place], [address] Sodium [Moles/Vol] 134 mmol/L Normal 133-145 [facility] Comment on above: Performed By: #### L 501.5200, L500.4050, L100.0100, L501.2300 ####[facility] [address] [place], [address] T PROT 5.8 g/dL Low 5.9-8.4 [facility] Comment on above: Performed By: #### L 501.5200, L500.4050, L100.0100, L501.2300 ####[facility] [address] [place], [address] Urea nitrogen [Mass/Vol] 7 mg/dL Normal 4-19 [facility] Comment on above: Performed By: #### L 501.5200, L500.4050, L100.0100, L501.2300 ####[facility] [address] [place], [address] Magnesiumon 05-02-2025 Magnesium [Mass/Vol] 1.2 mg/dL Low 1.5-2.2 [facility] Comment on above: Performed By: #### L 501.5200, L500.4050, L100.0100, L501.2300 ####[facility] [address] [place], [address] Magnesium measurement (mass/ volume)Ordered By: Canelo Myers on 05-02-2025 Magnesium (Unsp spec) [Mass/Vol] 1.2 mg/dL Low 1.5-2.2 [facility] Phosphoruson 05-02-2025 Phosphate [Mass/Vol] 5.0 mg/dL High 2.7-4.5 [facility] Comment on above: Performed By: #### L 501.5200, L500.4050, L100.0100, L501.2300 ####[facility] [address] [place], [address] Bedside Glucoseon 05-01-2025 FINGERSTICK GLU 234 mg/dL High 74-106 [facility] Comment on above: Result Comment: CHAUNCEY GEMENT OF PATIENT CARE PER NURSING PROTOCOL Performed By: #### L 501.080 ####[facility] [address] [place], [address] FINGERSTICK GLU 316 mg/dL High 74-106 [facility] Comment on above: Result Comment: CHAUNCEY GEMENT OF PATIENT CARE PER NURSING PROTOCOL Performed By: #### L 501.080 ####[facility] [address] [place], [address] FINGERSTICK GLU 168 mg/dL High 74-106 [facility] Comment on above: Result Comment: CHAUNCEY RIZO OF PATIENT CARE PER NURSING PROTOCOL Performed By: #### L 501.080 ####[facility] [address] [place], [address] Bilirubin directOrdered By: Canelo Myers on 05-01-2025 Bilirubin.direct [Mass/Vol] 0.32 mg/dL High 0.00-0.30 [facility] Liver Profileon 05-01-2025 Albumin [Mass/Vol] 3.0 g/dL Low 3.5-5.0 [facility] Comment on above: Performed By: #### L 500.3400 ####[facility] [address] [place], [address] ALK PHOS 166 U/L High 35-104 [facility] Comment on above: Performed By: #### L 500.3400 ####[facility] [address] [place], [address] ALT [Catalytic activity/Vol] 39 U/L High <=34 [facility] Comment on above: Performed By: #### L 500.3400 ####[facility] [address] [place], [address] AST [Catalytic activity/Vol] 73 U/L High <=31 [facility] Comment on above: Performed By: #### L 500.3400 ####[facility] [address] [place], [address] Bilirubin [Mass/Vol] 0.59 mg/dL Normal 0.00-1.30 [facility] Comment on above: Performed By: #### L 500.3400 ####[facility] [address] [place], [address] Bilirubin.direct [Mass/Vol] 0.32 mg/dL High 0.00-0.30 [facility] Comment on above: Performed By: #### L 500.3400 ####[facility] [address] [place], [address] Globulin (S) [Mass/Vol] 2.7 g/dL Normal 2.2-4.2 [facility] Comment on above: Performed By: #### L 500.3400 ####[facility] [address] [place], [address] T PROT 5.7 g/dL Low 5.9-8.4 [facility] Comment on above: Performed By: #### L 500.3400 ####[facility] [address] [place], [address] Phosphoruson 05-01-2025 Phosphate [Mass/Vol] 5.1 mg/dL High 2.7-4.5 [facility] Comment on above: Performed By: #### L 501.2300 ####[facility] [address] [place], [address] Basic Metabolic Profile (BMP )on 04-30-2025 BUN/CRE UNABLE TO CALCULATE Low 10-20 [facility] Comment on above: Performed By: #### L 500.2500, L500.3400, L100.0100 ####[facility] [address] [place], [address] Calcium [Mass/Vol] 8.5 mg/dL Normal 7.6-11.0 [facility] Comment on above: Performed By: #### L 500.2500, L500.3400, L100.0100 ####[facility] [address] [place], [address] Chloride [Moles/Vol] 98 mmol/L Normal 98-108 [facility] Comment on above: Performed By: #### L 500.2500, L500.3400, L100.0100 ####[facility] [address] [place], [address] CO2 [Moles/Vol] 28.1 mmol/L Normal 21.0-32.0 [facility] Comment on above: Performed By: #### L 500.2500, L500.3400, L100.0100 ####[facility] [address] [place], [address] Creatinine [Mass/Vol] 0.41 mg/dL Low 0.70-1.20 [facility] Comment on above: Performed By: #### L 500.2500, L500.3400, L100.0100 ####[facility] [address] [place], [address] ECRCL 144.90 ml/min Normal 50-250 [facility] Comment on above: Performed By: #### L 500.2500, L500.3400, L100.0100 ####[facility] [address] [place], [address] GAP 13 Normal 5-15 [facility] Comment on above: Performed By: #### L 500.2500, L500.3400, L100.0100 ####[facility] [address] [place], [address] GFR/1.73 sq M.predicted among non-blacks MDRD (S/P/Bld) [Vol rate/Area] 121 mL/min/{1.73_m2} Normal >60 [facility] Comment on above: Result Comment: mL/m in/1.73m2 CKD-EPI Creatinine Equation (2020) Performed By: #### L 500.2500, L500.3400, L100.0100 ####[facility] [address] [place], [address] Glucose [Mass/Vol] 124 mg/dL High 70-99 [facility] Comment on above: Performed By: #### L 500.2500, L500.3400, L100.0100 ####[facility] [address] [place], [address] Potassium [Moles/Vol] 2.7 mmol/L Invalid Interpretation Code 3.3-5.1 [facility] Comment on above: Result Comment: Crit ical Result(s) Called at: by:??Results read back bysame. Performed By: #### L 500.2500, L500.3400, L100.0100 ####[facility] [address] [place], [address] Sodium [Moles/Vol] 139 mmol/L Normal 133-145 [facility] Comment on above: Performed By: #### L 500.2500, L500.3400, L100.0100 ####[facility] [address] [place], [address] Urea nitrogen [Mass/Vol] mg/dL Low 4-19 [facility] Comment on above: Performed By: #### L 500.2500, L500.3400, L100.0100 ####[facility] [address] [place], [address] Bedside Glucoseon 04-30-2025 FINGERSTICK GLU 147 mg/dL High 74-106 [facility] Comment on above: Result Comment: CHAUNCEY GEMENT OF PATIENT CARE PER NURSING PROTOCOL Performed By: #### L 501.080 ####[facility] [address] [place], [address] FINGERSTICK GLU 230 mg/dL High 74-106 [facility] Comment on above: Result Comment: CHAUNCEY GEMENT OF PATIENT CARE PER NURSING PROTOCOL Performed By: #### L 501.080 ####[facility] [address] [place], [address] FINGERSTICK GLU 149 mg/dL High 74-106 [facility] Comment on above: Result Comment: CHAUNCEY GEMENT OF PATIENT CARE PER NURSING PROTOCOL Performed By: #### L 501.080 ####[facility] [address] [place], [address] CBC W/Diff, Automatedon 06-0 2-5 Absolute Lymph 1.39 X10 3/uL Normal 0.83-4.51 [facility] Comment on above: Performed By: #### L 500.2500, L500.3400, L100.0100 ####[facility] [address] [place], [address] Absolute Neut 3.6 X10 3/uL Normal 2.0-7.7 [facility] Comment on above: Performed By: #### L 500.2500, L500.3400, L100.0100 ####[facility] [address] [place], [address] Basophils/100 WBC (Bld) 0.5 % Normal 0-1 [facility] Comment on above: Performed By: #### L 500.2500, L500.3400, L100.0100 ####[facility] [address] [place], [address] Eosinophils/100 WBC (Bld) 2.0 % Normal 0-5 [facility] Comment on above: Performed By: #### L 500.2500, L500.3400, L100.0100 ####[facility] [address] [place], [address] Erythrocyte distribution width (RBC) [Ratio] 12.6 % Normal 11.6-14.6 [facility] Comment on above: Performed By: #### L 500.2500, L500.3400, L100.0100 ####[facility] [address] [place], [address] Hematocrit (Bld) [Volume fraction] 29.7 % Low 37-47 [facility] Comment on above: Performed By: #### L 500.2500, L500.3400, L100.0100 ####[facility] [address] [place], [address] Hemoglobin (Bld) [Mass/Vol] 10.3 g/dL Low 12.0-15.0 [facility] Comment on above: Performed By: #### L 500.2500, L500.3400, L100.0100 ####[facility] [address] [place], [address] IG% 0.500 Normal 0.0-0.9 [facility] Comment on above: Result Comment: IG% - Immature Granulocytes (promyelocytes, myelocytes andmetamyelocytes) > 1% indicates that a LEFT SHIFT is Present. Performed By: #### L 500.2500, L500.3400, L100.0100 ####[facility] [address] [place], [address] Lymphocytes/100 WBC (Bld) 23.4 % Normal 19-41 [facility] Comment on above: Performed By: #### L 500.2500, L500.3400, L100.0100 ####[facility] [address] [place], [address] MCH (RBC) [Entitic mass] 36.7 pg High 27.0-32.0 [facility] Comment on above: Performed By: #### L 500.2500, L500.3400, L100.0100 ####[facility] [address] [place], [address] MCHC (RBC) [Mass/Vol] 34.7 g/dL Normal 32-36 [facility] Comment on above: Performed By: #### L 500.2500, L500.3400, L100.0100 ####[facility] [address] [place], [address] MCV (RBC) [Entitic vol] 105.7 fL High 81-99 [facility] Comment on above: Performed By: #### L 500.2500, L500.3400, L100.0100 ####[facility] [address] [place], [address] Monocytes/100 WBC (Bld) 13.8 % High 0-10 [facility] Comment on above: Performed By: #### L 500.2500, L500.3400, L100.0100 ####[facility] [address] [place], [address] Neutrophils/100 WBC (Bld) 59.8 % Normal 47-70 [facility] Comment on above: Performed By: #### L 500.2500, L500.3400, L100.0100 ####[facility] [address] [place], [address] Nucleated RBC (Bld) [#/Vol] 0 10*3/uL Normal 0-5 [facility] Comment on above: Performed By: #### L 500.2500, L500.3400, L100.0100 ####[facility] [address] [place], [address] Platelet mean volume (Bld) [Entitic vol] 10.4 fL Normal 6.2-12.0 [facility] Comment on above: Performed By: #### L 500.2500, L500.3400, L100.0100 ####[facility] [address] [place], [address] Platelets (Bld) [#/Vol] 145 10*3/uL Low 150-450 [facility] Comment on above: Performed By: #### L 500.2500, L500.3400, L100.0100 ####[facility] [address] [place], [address] RBC (Bld) [#/Vol] 2.81 10*6/uL Low 4.2-5.4 [facility] Comment on above: Performed By: #### L 500.2500, L500.3400, L100.0100 ####[facility] [address] [place], [address] RDW SD 49.7 fl High 35.1-43.9 [facility] Comment on above: Performed By: #### L 500.2500, L500.3400, L100.0100 ####[facility] [address] [place], [address] WBC (Bld) [#/Vol] 6.0 10*3/uL Normal 4.4-11.0 [facility] Comment on above: Performed By: #### L 500.2500, L500.3400, L100.0100 ####[facility] [address] [place], [address] Liver Profileon 04-30-2025 Albumin [Mass/Vol] 3.2 g/dL Low 3.5-5.0 [facility] Comment on above: Performed By: #### L 500.2500, L500.3400, L100.0100 ####[facility] [address] [place], [address] ALK PHOS 98 U/L Normal 35-104 [facility] Comment on above: Performed By: #### L 500.2500, L500.3400, L100.0100 ####[facility] [address] [place], [address] ALT [Catalytic activity/Vol] 32 U/L Normal <=34 [facility] Comment on above: Performed By: #### L 500.2500, L500.3400, L100.0100 ####[facility] [address] [place], [address] AST [Catalytic activity/Vol] 39 U/L High <=31 [facility] Comment on above: Performed By: #### L 500.2500, L500.3400, L100.0100 ####[facility] [address] [place], [address] Bilirubin [Mass/Vol] 0.67 mg/dL Normal 0.00-1.30 [facility] Comment on above: Performed By: #### L 500.2500, L500.3400, L100.0100 ####[facility] [address] [place], [address] Bilirubin.direct [Mass/Vol] 0.41 mg/dL High 0.00-0.30 [facility] Comment on above: Performed By: #### L 500.2500, L500.3400, L100.0100 ####[facility] [address] [place], [address] Globulin (S) [Mass/Vol] 2.6 g/dL Normal 2.2-4.2 [facility] Comment on above: Performed By: #### L 500.2500, L500.3400, L100.0100 ####[facility] [address] [place], [address] T PROT 5.9 g/dL Normal 5.9-8.4 [facility] Comment on above: Performed By: #### L 500.2500, L500.3400, L100.0100 ####[facility] [address] [place], [address] Magnesiumon 04-30-2025 Magnesium [Mass/Vol] 1.5 mg/dL Normal 1.5-2.2 [facility] Comment on above: Performed By: #### L 501.5200 ####[facility] [address] [place], [address] Basic Metabolic Profile (BMP )on 04-29-2025 BUN/CRE UNABLE TO CALCULATE Low 10-20 [facility] Comment on above: Performed By: #### L 500.2500, L500.3400, L501.5200, L100.0100 ####[facility] [address] [place], [address] Calcium [Mass/Vol] 8.2 mg/dL Normal 7.6-11.0 [facility] Comment on above: Performed By: #### L 500.2500, L500.3400, L501.5200, L100.0100 ####[facility] [address] [place], [address] Chloride [Moles/Vol] 103 mmol/L Normal 98-108 [facility] Comment on above: Performed By: #### L 500.2500, L500.3400, L501.5200, L100.0100 ####[facility] [address] [place], [address] CO2 [Moles/Vol] 26.0 mmol/L Normal 21.0-32.0 [facility] Comment on above: Performed By: #### L 500.2500, L500.3400, L501.5200, L100.0100 ####[facility] [address] [place], [address] Creatinine [Mass/Vol] 0.40 mg/dL Low 0.70-1.20 [facility] Comment on above: Performed By: #### L 500.2500, L500.3400, L501.5200, L100.0100 ####[facility] [address] [place], [address] ECRCL 148.53 ml/min Normal 50-250 [facility] Comment on above: Performed By: #### L 500.2500, L500.3400, L501.5200, L100.0100 ####[facility] [address] [place], [address] GAP 11 Normal 5-15 [facility] Comment on above: Performed By: #### L 500.2500, L500.3400, L501.5200, L100.0100 ####[facility] [address] [place], [address] GFR/1.73 sq M.predicted among non-blacks MDRD (S/P/Bld) [Vol rate/Area] 122 mL/min/{1.73_m2} Normal >60 [facility] Comment on above: Result Comment: mL/m in/1.73m2 CKD-EPI Creatinine Equation (2020) Performed By: #### L 500.2500, L500.3400, L501.5200, L100.0100 ####[facility] [address] [place], [address] Glucose [Mass/Vol] 126 mg/dL High 70-99 [facility] Comment on above: Performed By: #### L 500.2500, L500.3400, L501.5200, L100.0100 ####[facility] [address] [place], [address] Potassium [Moles/Vol] 2.8 mmol/L Low 3.3-5.1 [facility] Comment on above: Performed By: #### L 500.2500, L500.3400, L501.5200, L100.0100 ####[facility] [address] [place], [address] Sodium [Moles/Vol] 140 mmol/L Normal 133-145 [facility] Comment on above: Performed By: #### L 500.2500, L500.3400, L501.5200, L100.0100 ####[facility] [address] [place], [address] Urea nitrogen [Mass/Vol] mg/dL Low 4-19 [facility] Comment on above: Performed By: #### L 500.2500, L500.3400, L501.5200, L100.0100 ####[facility] [address] [place], [address] Bedside Glucoseon 04-29-2025 FINGERSTICK GLU 187 mg/dL High 74-106 [facility] Comment on above: Result Comment: CHAUNCEY GEMENT OF PATIENT CARE PER NURSING PROTOCOL Performed By: #### L 501.080 ####[facility] [address] [place], [address] FINGERSTICK GLU 121 mg/dL High -106 [facility] Comment on above: Result Comment: CHAUNCEY GEMENT OF PATIENT CARE PER NURSING PROTOCOL Performed By: #### L 501.080 ####[facility] [address] [place], [address] FINGERSTICK GLU 218 mg/dL High 74-106 [facility] Comment on above: Result Comment: CHAUNCEY GEMENT OF PATIENT CARE PER NURSING PROTOCOL Performed By: #### L 501.080 ####[facility] [address] [place], [address] FINGERSTICK GLU 132 mg/dL High -106 [facility] [facility] Comment on above: Result Comment: CHAUNCEY GEMENT OF PATIENT CARE PER NURSING PROTOCOL Performed By: #### L 501.080 ####[facility] [address] [place], [address] CBC W/Diff, Automatedon 06-0 Absolute Lymph 1.02 X10 3/uL Normal 0.83-4.51 [facility] Comment on above: Performed By: #### L 500.2500, L500.3400, L501.5200, L100.0100 ####[facility] [address] [place], [address] Absolute Neut 5.3 X10 3/uL Normal 2.0-7.7 [facility] Comment on above: Performed By: #### L 500.2500, L500.3400, L501.5200, L100.0100 ####[facility] [address] [place], [address] Basophils/100 WBC (Bld) 0.4 % Normal 0-1 [facility] Comment on above: Performed By: #### L 500.2500, L500.3400, L501.5200, L100.0100 ####[facility] [address] [place], [address] Eosinophils/100 WBC (Bld) 1.1 % Normal 0-5 [facility] Comment on above: Performed By: #### L 500.2500, L500.3400, L501.5200, L100.0100 ####[facility] [address] [place], [address] Erythrocyte distribution width (RBC) [Ratio] 12.2 % Normal 11.6-14.6 [facility] Comment on above: Performed By: #### L 500.2500, L500.3400, L501.5200, L100.0100 ####[facility] [address] [place], [address] Hematocrit (Bld) [Volume fraction] 28.7 % Low 37-47 [facility] Comment on above: Performed By: #### L 500.2500, L500.3400, L501.5200, L100.0100 ####[facility] [address] [place], [address] Hemoglobin (Bld) [Mass/Vol] 9.9 g/dL Low 12.0-15.0 [facility] Comment on above: Performed By: #### L 500.2500, L500.3400, L501.5200, L100.0100 ####[facility] [address] [place], [address] IG% 0.600 Normal 0.0-0.9 [facility] Comment on above: Result Comment: IG% - Immature Granulocytes (promyelocytes, myelocytes andmetamyelocytes) > 1% indicates that a LEFT SHIFT is Present. Performed By: #### L 500.2500, L500.3400, L501.5200, L100.0100 ####[facility] [address] [place], [address] Lymphocytes/100 WBC (Bld) 14.1 % Low 19-41 [facility] Comment on above: Performed By: #### L 500.2500, L500.3400, L501.5200, L100.0100 ####[facility] [address] [place], [address] MCH (RBC) [Entitic mass] 36.5 pg High 27.0-32.0 [facility] Comment on above: Performed By: #### L 500.2500, L500.3400, L501.5200, L100.0100 ####[facility] [address] [place], [address] MCHC (RBC) [Mass/Vol] 34.5 g/dL Normal 32-36 [facility] Comment on above: Performed By: #### L 500.2500, L500.3400, L501.5200, L100.0100 ####[facility] [address] [place], [address] MCV (RBC) [Entitic vol] 105.9 fL High 81-99 [facility] Comment on above: Performed By: #### L 500.2500, L500.3400, L501.5200, L100.0100 ####[facility] [address] [place], [address] Monocytes/100 WBC (Bld) 10.9 % High 0-10 [facility] Comment on above: Performed By: #### L 500.2500, L500.3400, L501.5200, L100.0100 ####[facility] [address] [place], [address] Neutrophils/100 WBC (Bld) 72.9 % High 47-70 [facility] Comment on above: Performed By: #### L 500.2500, L500.3400, L501.5200, L100.0100 ####[facility] [address] [place], [address] Nucleated RBC (Bld) [#/Vol] 0 10*3/uL Normal 0-5 [facility] Comment on above: Performed By: #### L 500.2500, L500.3400, L501.5200, L100.0100 ####[facility] [address] [place], [address] Platelet mean volume (Bld) [Entitic vol] 10.5 fL Normal 6.2-12.0 [facility] Comment on above: Performed By: #### L 500.2500, L500.3400, L501.5200, L100.0100 ####[facility] [address] [place], [address] Platelets (Bld) [#/Vol] 110 10*3/uL Low 150-450 [facility] Comment on above: Performed By: #### L 500.2500, L500.3400, L501.5200, L100.0100 ####[facility] [address] [place], [address] RBC (Bld) [#/Vol] 2.71 10*6/uL Low 4.2-5.4 [facility] Comment on above: Performed By: #### L 500.2500, L500.3400, L501.5200, L100.0100 ####[facility] [address] [place], [address] RDW SD 47.6 fl High 35.1-43.9 [facility] Comment on above: Performed By: #### L 500.2500, L500.3400, L501.5200, L100.0100 ####[facility] [address] [place], [address] WBC (Bld) [#/Vol] 7.2 10*3/uL Normal 4.4-11.0 [facility] Comment on above: Performed By: #### L 500.2500, L500.3400, L501.5200, L100.0100 ####[facility] [address] [place], [address] Liver Profileon 04-29-2025 Albumin [Mass/Vol] 3.2 g/dL Low 3.5-5.0 [facility] Comment on above: Performed By: #### L 500.2500, L500.3400, L501.5200, L100.0100 ####[facility] [address] [place], [address] ALK PHOS 108 U/L High 35-104 [facility] Comment on above: Performed By: #### L 500.2500, L500.3400, L501.5200, L100.0100 ####[facility] [address] [place], [address] ALT [Catalytic activity/Vol] 37 U/L High <=34 [facility] Comment on above: Performed By: #### L 500.2500, L500.3400, L501.5200, L100.0100 ####[facility] [address] [place], [address] AST [Catalytic activity/Vol] 56 U/L High <=31 [facility] Comment on above: Performed By: #### L 500.2500, L500.3400, L501.5200, L100.0100 ####[facility] [address] [place], [address] Bilirubin [Mass/Vol] 0.71 mg/dL Normal 0.00-1.30 [facility] Comment on above: Performed By: #### L 500.2500, L500.3400, L501.5200, L100.0100 ####[facility] [address] [place], [address] Bilirubin.direct [Mass/Vol] 0.43 mg/dL High 0.00-0.30 [facility] Comment on above: Performed By: #### L 500.2500, L500.3400, L501.5200, L100.0100 ####[facility] [address] [place], [address] Globulin (S) [Mass/Vol] 2.4 g/dL Normal 2.2-4.2 [facility] Comment on above: Performed By: #### L 500.2500, L500.3400, L501.5200, L100.0100 ####[facility] [address] [place], [address] T PROT 5.6 g/dL Low 5.9-8.4 [facility] Comment on above: Performed By: #### L 500.2500, L500.3400, L501.5200, L100.0100 ####[facility] [address] [place], [address] Magnesiumon 04-29-2025 Magnesium [Mass/Vol] 1.5 mg/dL Normal 1.5-2.2 [facility] Comment on above: Performed By: #### L 500.2500, L500.3400, L501.5200, L100.0100 ####[facility] [address] [place], [address] Phosphoruson 04-29-2025 Phosphate [Mass/Vol] 2.0 mg/dL Low 2.7-4.5 [facility] Comment on above: Performed By: #### L 501.2300 ####[facility] [address] [place], [address] Basic Metabolic Profile (BMP )on 04-28-2025 BUN/CRE 6.9 RATIO Low 10-20 [facility] Comment on above: Performed By: #### L 500.2500, L500.3400, L501.5200, L501.2450 ####[facility] [address] [place], [address] Calcium [Mass/Vol] 8.3 mg/dL Normal 7.6-11.0 [facility] Comment on above: Performed By: #### L 500.2500, L500.3400, L501.5200, L501.2450 ####[facility] [address] [place], [address] Chloride [Moles/Vol] 100 mmol/L Normal 98-108 [facility] Comment on above: Performed By: #### L 500.2500, L500.3400, L501.5200, L501.2450 ####[facility] [address] [place], [address] CO2 [Moles/Vol] 24.9 mmol/L Normal 21.0-32.0 [facility] Comment on above: Performed By: #### L 500.2500, L500.3400, L501.5200, L501.2450 ####[facility] [address] [place], [address] Creatinine [Mass/Vol] 0.50 mg/dL Low 0.70-1.20 [facility] Comment on above: Performed By: #### L 500.2500, L500.3400, L501.5200, L501.2450 ####[facility] [address] [place], [address] ECRCL 118.82 ml/min Normal 50-250 [facility] Comment on above: Performed By: #### L 500.2500, L500.3400, L501.5200, L501.2450 ####[facility] [address] [place], [address] GAP 12 Normal 5-15 [facility] Comment on above: Performed By: #### L 500.2500, L500.3400, L501.5200, L501.2450 ####[facility] [address] [place], [address] GFR/1.73 sq M.predicted among non-blacks MDRD (S/P/Bld) [Vol rate/Area] 115 mL/min/{1.73_m2} Normal >60 [facility] Comment on above: Result Comment: mL/m in/1.73m2 CKD-EPI Creatinine Equation (2020) Performed By: #### L 500.2500, L500.3400, L501.5200, L501.2450 ####[facility] [address] [place], [address] Glucose [Mass/Vol] 103 mg/dL High 70-99 [facility] Comment on above: Performed By: #### L 500.2500, L500.3400, L501.5200, L501.2450 ####[facility] [address] [place], [address] Potassium [Moles/Vol] 3.2 mmol/L Low 3.3-5.1 [facility] Comment on above: Performed By: #### L 500.2500, L500.3400, L501.5200, L501.2450 ####[facility] [address] [place], [address] Sodium [Moles/Vol] 137 mmol/L Normal 133-145 [facility] Comment on above: Performed By: #### L 500.2500, L500.3400, L501.5200, L501.2450 ####[facility] [address] [place], [address] Urea nitrogen [Mass/Vol] 3 mg/dL Low 4-19 [facility] Comment on above: Performed By: #### L 500.2500, L500.3400, L501.5200, L501.2450 ####[facility] [address] [place], [address] Bedside Glucoseon 04-28-2025 FINGERSTICK GLU 140 mg/dL High 74-106 [facility] Comment on above: Result Comment: CHAUNCEY GEMENT OF PATIENT CARE PER NURSING PROTOCOL Performed By: #### L 501.080 ####[facility] [address] [place], [address] FINGERSTICK GLU 181 mg/dL High 74-106 [facility] Comment on above: Result Comment: CHAUNCEY GEMENT OF PATIENT CARE PER NURSING PROTOCOL Performed By: #### L 501.080 ####[facility] [address] [place], [address] FINGERSTICK GLU 104 mg/dL Normal 74-106 [facility] Comment on above: Result Comment: CHAUNCEY GEMENT OF PATIENT CARE PER NURSING PROTOCOL Performed By: #### L 501.080 ####[facility] [address] [place], [address] CBC W/Diff, Automatedon 05- Absolute Lymph 0.95 X10 3/uL Normal 0.83-4.51 [facility] Comment on above: Performed By: #### L 100.0100, L501.2300 ####[facility] [address] [place], [address] Absolute Neut 5.9 X10 3/uL Normal 2.0-7.7 [facility] Comment on above: Performed By: #### L 100.0100, L501.2300 ####[facility] [address] [place], [address] Basophils/100 WBC (Bld) 0.3 % Normal 0-1 [facility] Comment on above: Performed By: #### L 100.0100, L501.2300 ####[facility] [address] [place], [address] Eosinophils/100 WBC (Bld) 0.8 % Normal 0-5 [facility] Comment on above: Performed By: #### L 100.0100, L501.2300 ####[facility] [address] [place], [address] Erythrocyte distribution width (RBC) [Ratio] 12.2 % Normal 11.6-14.6 [facility] Comment on above: Performed By: #### L 100.0100, L501.2300 ####[facility] [address] [place], [address] Hematocrit (Bld) [Volume fraction] 34.3 % Low 37-47 [facility] Comment on above: Performed By: #### L 100.0100, L501.2300 ####[facility] [address] [place], [address] Hemoglobin (Bld) [Mass/Vol] 11.6 g/dL Low 12.0-15.0 [facility] Comment on above: Performed By: #### L 100.0100, L501.2300 ####[facility] [address] [place], [address] IG% 0.400 Normal 0.0-0.9 [facility] Comment on above: Result Comment: IG% - Immature Granulocytes (promyelocytes, myelocytes andmetamyelocytes) > 1% indicates that a LEFT SHIFT is Present. Performed By: #### L 100.0100, L501.2300 ####[facility] [address] [place], [address] Lymphocytes/100 WBC (Bld) 12.5 % Low 19-41 [facility] Comment on above: Performed By: #### L 100.0100, L501.2300 ####[facility] [address] [place], [address] MCH (RBC) [Entitic mass] 36.4 pg High 27.0-32.0 [facility] Comment on above: Performed By: #### L 100.0100, L501.2300 ####[facility] [address] [place], [address] MCHC (RBC) [Mass/Vol] 33.8 g/dL Normal 32-36 [facility] Comment on above: Performed By: #### L 100.0100, L501.2300 ####[facility] [address] [place], [address] MCV (RBC) [Entitic vol] 107.5 fL High 81-99 [facility] Comment on above: Performed By: #### L 100.0100, L501.2300 ####[facility] [address] [place], [address] Monocytes/100 WBC (Bld) 8.0 % Normal 0-10 [facility] Comment on above: Performed By: #### L 100.0100, L501.2300 ####[facility] [address] [place], [address] Neutrophils/100 WBC (Bld) 78.0 % High 47-70 [facility] Comment on above: Performed By: #### L 100.0100, L501.2300 ####[facility] [address] [place], [address] Nucleated RBC (Bld) [#/Vol] 0 10*3/uL Normal 0-5 [facility] Comment on above: Performed By: #### L 100.0100, L501.2300 ####[facility] [address] [place], [address] Platelet mean volume (Bld) [Entitic vol] 10.3 fL Normal 6.2-12.0 [facility] Comment on above: Performed By: #### L 100.0100, L501.2300 ####[facility] [address] [place], [address] Platelets (Bld) [#/Vol] 119 10*3/uL Low 150-450 [facility] Comment on above: Performed By: #### L 100.0100, L501.2300 ####[facility] [address] [place], [address] RBC (Bld) [#/Vol] 3.19 10*6/uL Low 4.2-5.4 [facility] Comment on above: Performed By: #### L 100.0100, L501.2300 ####[facility] [address] [place], [address] RDW SD 48.2 fl High 35.1-43.9 [facility] Comment on above: Performed By: #### L 100.0100, L501.2300 ####[facility] [address] [place], [address] WBC (Bld) [#/Vol] 7.6 10*3/uL Normal 4.4-11.0 [facility] Comment on above: Performed By: #### L 100.0100, L501.2300 ####[facility] [address] [place], [address] Lipaseon 04-28-2025 Lipase [Catalytic activity/Vol] 533 U/L High 13-75 [facility] Comment on above: Result Comment: Lucie schultz note:LIPASE revised reference range effective 23.New Lipase methodology. Expected to produce lower valuesthan the previous assay method.NEW Reference Range: 13 - 75 U/L Performed By: #### L 500.2500, L500.3400, L501.5200, L501.2450 ####[facility] [address] [place], [address] Lipase measurementOrdered By : Canelo Myers on 04-28-2025 Lipase [Catalytic activity/Vol] 533 U/L High 13-75 [facility] Comment on above: Please note:LIPASE r evised reference range effective 23. New Lipase methodology. Expected to produce lower values than the previous assay method. NEW Reference Range: 13 - 75 U/L Liver Profileon 04-28-2025 Albumin [Mass/Vol] 3.7 g/dL Normal 3.5-5.0 [facility] Comment on above: Performed By: #### L 500.2500, L500.3400, L501.5200, L501.2450 ####[facility] [address] [place], [address] ALK PHOS 158 U/L High 35-104 [facility] Comment on above: Performed By: #### L 500.2500, L500.3400, L501.5200, L501.2450 ####[facility] [address] [place], [address] ALT [Catalytic activity/Vol] 72 U/L High <=34 [facility] Comment on above: Performed By: #### L 500.2500, L500.3400, L501.5200, L501.2450 ####[facility] [address] [place], [address] AST [Catalytic activity/Vol] 265 U/L High <=31 [facility] Comment on above: Performed By: #### L 500.2500, L500.3400, L501.5200, L501.2450 ####[facility] [address] [place], [address] Bilirubin [Mass/Vol] 1.26 mg/dL Normal 0.00-1.30 [facility] Comment on above: Performed By: #### L 500.2500, L500.3400, L501.5200, L501.2450 ####[facility] [address] [place], [address] Bilirubin.direct [Mass/Vol] 0.79 mg/dL High 0.00-0.30 [facility] Comment on above: Performed By: #### L 500.2500, L500.3400, L501.5200, L501.2450 ####[facility] [address] [place], [address] Globulin (S) [Mass/Vol] 2.6 g/dL Normal 2.2-4.2 [facility] Comment on above: Performed By: #### L 500.2500, L500.3400, L501.5200, L501.2450 ####[facility] [address] [place], [address] T PROT 6.3 g/dL Normal 5.9-8.4 [facility] Comment on above: Performed By: #### L 500.2500, L500.3400, L501.5200, L501.2450 ####[facility] [address] [place], [address] Magnesiumon 04-28-2025 Magnesium [Mass/Vol] 1.5 mg/dL Normal 1.5-2.2 [facility] Comment on above: Performed By: #### L 500.2500, L500.3400, L501.5200, L501.2450 ####[facility] [address] [place], [address] Phosphoruson 04-28-2025 Phosphate [Mass/Vol] 1.5 mg/dL Low 2.7-4.5 [facility] Comment on above: Performed By: #### L 100.0100, L501.2300 ####[facility] [address] [place], [address] Basic Metabolic Profile (BMP )on 04-27-2025 BUN/CRE 9.1 RATIO Low 10-20 [facility] Comment on above: Performed By: #### L 300.3900, L500.3400, L501.2300, L501.5200, L501.9520, L500.4050, L500.2500, L100.0100 ####[facility] [address] [place], [address] Calcium [Mass/Vol] 8.0 mg/dL Normal 7.6-11.0 [facility] Comment on above: Performed By: #### L 300.3900, L500.3400, L501.2300, L501.5200, L501.9520, L500.4050, L500.2500, L100.0100 ####[facility] [address] [place], [address] Chloride [Moles/Vol] 96 mmol/L Low 98-108 [facility] Comment on above: Performed By: #### L 300.3900, L500.3400, L501.2300, L501.5200, L501.9520, L500.4050, L500.2500, L100.0100 ####[facility] [address] [place], [address] CO2 [Moles/Vol] 16.0 mmol/L Low 21.0-32.0 [facility] Comment on above: Performed By: #### L 300.3900, L500.3400, L501.2300, L501.5200, L501.9520, L500.4050, L500.2500, L100.0100 ####[facility] [address] [place], [address] Creatinine [Mass/Vol] 0.69 mg/dL Low 0.70-1.20 [facility] Comment on above: Performed By: #### L 300.3900, L500.3400, L501.2300, L501.5200, L501.9520, L500.4050, L500.2500, L100.0100 ####[facility] [address] [place], [address] ECRCL 86.10 ml/min Normal 50-250 [facility] Comment on above: Performed By: #### L 300.3900, L500.3400, L501.2300, L501.5200, L501.9520, L500.4050, L500.2500, L100.0100 ####[facility] [address] [place], [address] GAP 22 High 5-15 [facility] Comment on above: Performed By: #### L 300.3900, L500.3400, L501.2300, L501.5200, L501.9520, L500.4050, L500.2500, L100.0100 ####[facility] [address] [place], [address] GFR/1.73 sq M.predicted among non-blacks MDRD (S/P/Bld) [Vol rate/Area] 107 mL/min/{1.73_m2} Normal >60 [facility] Comment on above: Result Comment: mL/m in/1.73m2 CKD-EPI Creatinine Equation (2020) Performed By: #### L 300.3900, L500.3400, L501.2300, L501.5200, L501.9520, L500.4050, L500.2500, L100.0100 ####[facility] [address] [place], [address] Glucose [Mass/Vol] 132 mg/dL High 70-99 [facility] Comment on above: Performed By: #### L 300.3900, L500.3400, L501.2300, L501.5200, L501.9520, L500.4050, L500.2500, L100.0100 ####[facility] [address] [place], [address] Potassium [Moles/Vol] 3.8 mmol/L Normal 3.3-5.1 [facility] Comment on above: Performed By: #### L 300.3900, L500.3400, L501.2300, L501.5200, L501.9520, L500.4050, L500.2500, L100.0100 ####[facility] [address] [place], [address] Sodium [Moles/Vol] 134 mmol/L Normal 133-145 [facility] Comment on above: Performed By: #### L 300.3900, L500.3400, L501.2300, L501.5200, L501.9520, L500.4050, L500.2500, L100.0100 ####[facility] [address] [place], [address] Urea nitrogen [Mass/Vol] 6 mg/dL Normal 4-19 [facility] Comment on above: Performed By: #### L 300.3900, L500.3400, L501.2300, L501.5200, L501.9520, L500.4050, L500.2500, L100.0100 ####[facility] [address] [place], [address] Bedside Glucoseon 04-27-2025 FINGERSTICK GLU 153 mg/dL High 74-106 [facility] [facility] Comment on above: Result Comment: CHAUNCEY GEMENT OF PATIENT CARE PER NURSING PROTOCOL Performed By: #### L 501.080 ####[facility] [address] [place], [address] FINGERSTICK GLU 149 mg/dL High 74-106 [facility] Comment on above: Result Comment: CHAUNCEY GEMENT OF PATIENT CARE PER NURSING PROTOCOL Performed By: #### L 501.080 ####[facility] [address] [place], [address] FINGERSTICK GLU 194 mg/dL High 74-106 [facility] Comment on above: Result Comment: CHAUNCEY GEMENT OF PATIENT CARE PER NURSING PROTOCOL Performed By: #### L 501.080 ####[facility] [address] [place], [address] FINGERSTICK GLU 107 mg/dL High 74-106 [facility] Comment on above: Result Comment: CHAUNCEY GEMENT OF PATIENT CARE PER NURSING PROTOCOL Performed By: #### L 501.080 ####[facility] [address] [place], [address] CBC W/Diff, Automatedon 05-3 0-2024 Absolute Lymph 0.83 X10 3/uL Normal 0.83-4.51 [facility] Comment on above: Performed By: #### L 300.3900, L500.3400, L501.2300, L501.5200, L501.9520, L500.4050, L500.2500, L100.0100 ####[facility] [address] [place], [address] Absolute Neut 9.6 X10 3/uL High 2.0-7.7 [facility] Comment on above: Performed By: #### L 300.3900, L500.3400, L501.2300, L501.5200, L501.9520, L500.4050, L500.2500, L100.0100 ####[facility] [address] [place], [address] Basophils/100 WBC (Bld) 0.3 % Normal 0-1 [facility] Comment on above: Performed By: #### L 300.3900, L500.3400, L501.2300, L501.5200, L501.9520, L500.4050, L500.2500, L100.0100 ####[facility] [address] [place], [address] Eosinophils/100 WBC (Bld) 0.1 % Normal 0-5 [facility] Comment on above: Performed By: #### L 300.3900, L500.3400, L501.2300, L501.5200, L501.9520, L500.4050, L500.2500, L100.0100 ####[facility] [address] [place], [address] Erythrocyte distribution width (RBC) [Ratio] 12.7 % Normal 11.6-14.6 [facility] Comment on above: Performed By: #### L 300.3900, L500.3400, L501.2300, L501.5200, L501.9520, L500.4050, L500.2500, L100.0100 ####[facility] [address] [place], [address]( Hematocrit (Bld) [Volume fraction] 39.2 % Normal 37-47 [facility] Comment on above: Performed By: #### L 300.3900, L500.3400, L501.2300, L501.5200, L501.9520, L500.4050, L500.2500, L100.0100 ####[facility] [address] [place], [address] Hemoglobin (Bld) [Mass/Vol] 13.5 g/dL Normal 12.0-15.0 [facility] Comment on above: Performed By: #### L 300.3900, L500.3400, L501.2300, L501.5200, L501.9520, L500.4050, L500.2500, L100.0100 ####[facility] [address] [place], [address] IG% 0.400 Normal 0.0-0.9 [facility] Comment on above: Result Comment: IG% - Immature Granulocytes (promyelocytes, myelocytes andmetamyelocytes) > 1% indicates that a LEFT SHIFT is Present. Performed By: #### L 300.3900, L500.3400, L501.2300, L501.5200, L501.9520, L500.4050, L500.2500, L100.0100 ####[facility] [address] [place], [address] Lymphocytes/100 WBC (Bld) 7.3 % Low 19-41 [facility] Comment on above: Performed By: #### L 300.3900, L500.3400, L501.2300, L501.5200, L501.9520, L500.4050, L500.2500, L100.0100 ####[facility] [address] [place], [address] MCH (RBC) [Entitic mass] 36.6 pg High 27.0-32.0 [facility] Comment on above: Performed By: #### L 300.3900, L500.3400, L501.2300, L501.5200, L501.9520, L500.4050, L500.2500, L100.0100 ####[facility] [address] [place], [address] MCHC (RBC) [Mass/Vol] 34.4 g/dL Normal 32-36 [facility] Comment on above: Performed By: #### L 300.3900, L500.3400, L501.2300, L501.5200, L501.9520, L500.4050, L500.2500, L100.0100 ####[facility] [address] [place], [address] MCV (RBC) [Entitic vol] 106.2 fL High 81-99 [facility] Comment on above: Performed By: #### L 300.3900, L500.3400, L501.2300, L501.5200, L501.9520, L500.4050, L500.2500, L100.0100 ####[facility] [address] [place], [address] Monocytes/100 WBC (Bld) 7.9 % Normal 0-10 [facility] Comment on above: Performed By: #### L 300.3900, L500.3400, L501.2300, L501.5200, L501.9520, L500.4050, L500.2500, L100.0100 ####[facility] [address] [place], [address] Neutrophils/100 WBC (Bld) 84.0 % High 47-70 [facility] Comment on above: Performed By: #### L 300.3900, L500.3400, L501.2300, L501.5200, L501.9520, L500.4050, L500.2500, L100.0100 ####[facility] [address] [place], [address] Nucleated RBC (Bld) [#/Vol] 0 10*3/uL Normal 0-5 [facility] Comment on above: Performed By: #### L 300.3900, L500.3400, L501.2300, L501.5200, L501.9520, L500.4050, L500.2500, L100.0100 ####[facility] [address] [place], [address] Platelet mean volume (Bld) [Entitic vol] 9.7 fL Normal 6.2-12.0 [facility] Comment on above: Performed By: #### L 300.3900, L500.3400, L501.2300, L501.5200, L501.9520, L500.4050, L500.2500, L100.0100 ####[facility] [address] [place], [address] Platelets (Bld) [#/Vol] 153 10*3/uL Normal 150-450 [facility] Comment on above: Performed By: #### L 300.3900, L500.3400, L501.2300, L501.5200, L501.9520, L500.4050, L500.2500, L100.0100 ####[facility] [address] [place], [place], [phone] RBC (Bld) [#/Vol] 3.69 10*6/uL Low 4.2-5.4 [facility] Comment on above: Performed By: #### L 300.3900, L500.3400, L501.2300, L501.5200, L501.9520, L500.4050, L500.2500, L100.0100 ####[facility] [address] [place], [place], [phone]) RDW SD 49.7 fl High 35.1-43.9 [facility] Comment on above: Performed By: #### L 300.3900, L500.3400, L501.2300, L501.5200, L501.9520, L500.4050, L500.2500, L100.0100 ####[facility] [address] [place], [place], [phone] WBC (Bld) [#/Vol] 11.4 10*3/uL High 4.4-11.0 [facility] Comment on above: Performed By: #### L 300.3900, L500.3400, L501.2300, L501.5200, L501.9520, L500.4050, L500.2500, L100.0100 ####[facility] [address] [place], [address] Comprehensive Metabolic Prof maon 04-27-2025 Albumin/Globulin [Mass ratio] 1.4 {ratio} Normal 0.9-2.4 [facility] Comment on above: Performed By: #### L 300.3900, L500.3400, L501.2300, L501.5200, L501.9520, L500.4050, L500.2500, L100.0100 ####[facility] [address] [place], [place], [phone] Hemoglobin A1con 04-27-2025 HbA1c (Bld) [Mass fraction] 5.6 % Normal <=5.6 [facility] Comment on above: Result Comment: Norm al < 5.7 % Prediabetic 5.7 - 6.4 % Diabetic >or= 6.5 % Please note range changes. Performed By: #### L 501.7517 ####[facility] [address] [place], [place], [phone] Hemoglobin A1c percentageOrd ered By: Julius Moncada on 04-27-2025 HbA1c (Bld) [Mass fraction] 5.6 % <5.7 [facility] Comment on above: Normal < 5.7 % Predi abetic 5.7 - 6.4 % Diabetic >or= 6.5 % Please note range changes. International normalized rat io (INR) calculationOrdered By: Julius Moncada on 04-27-2025 INR Coag (Bld) [Relative time] 1.0 {INR} [facility] Liver Profileon 04-27-2025 Albumin [Mass/Vol] 3.9 g/dL Normal 3.5-5.0 [facility] Comment on above: Performed By: #### L 300.3900, L500.3400, L501.2300, L501.5200, L501.9520, L500.4050, L500.2500, L100.0100 ####[facility] [address] [place], [place], [phone] ALK PHOS 98 U/L Normal 35-104 [facility] Comment on above: Performed By: #### L 300.3900, L500.3400, L501.2300, L501.5200, L501.9520, L500.4050, L500.2500, L100.0100 ####[facility] [address] [place], [place], [phone] ALT [Catalytic activity/Vol] 46 U/L High <=34 [facility] Comment on above: Performed By: #### L 300.3900, L500.3400, L501.2300, L501.5200, L501.9520, L500.4050, L500.2500, L100.0100 ####[facility] [address] [place], [address] AST [Catalytic activity/Vol] 96 U/L High <=31 [facility] Comment on above: Performed By: #### L 300.3900, L500.3400, L501.2300, L501.5200, L501.9520, L500.4050, L500.2500, L100.0100 ####[facility] [address] [place], [address] Bilirubin [Mass/Vol] 0.99 mg/dL Normal 0.00-1.30 [facility] Comment on above: Performed By: #### L 300.3900, L500.3400, L501.2300, L501.5200, L501.9520, L500.4050, L500.2500, L100.0100 ####[facility] [address] [place], [address] Bilirubin.direct [Mass/Vol] 0.54 mg/dL High 0.00-0.30 [facility] Comment on above: Performed By: #### L 300.3900, L500.3400, L501.2300, L501.5200, L501.9520, L500.4050, L500.2500, L100.0100 ####[facility] [address] [place], [address] Globulin (S) [Mass/Vol] 2.7 g/dL Normal 2.2-4.2 [facility] Comment on above: Performed By: #### L 300.3900, L500.3400, L501.2300, L501.5200, L501.9520, L500.4050, L500.2500, L100.0100 ####[facility] [address] [place], [address] T PROT 6.6 g/dL Normal 5.9-8.4 [facility] Comment on above: Performed By: #### L 300.3900, L500.3400, L501.2300, L501.5200, L501.9520, L500.4050, L500.2500, L100.0100 ####[facility] [address] [place], [address] Magnesiumon 04-27-2025 Magnesium [Mass/Vol] 0.9 mg/dL Invalid Interpretation Code 1.5-2.2 [facility] Comment on above: Result Comment: Crit ical Result(s) Called at:04/27/2025-02:13 by: AlBe [employer].??Results read back by same. Performed By: #### L 300.3900, L500.3400, L501.2300, L501.5200, L501.9520, L500.4050, L500.2500, L100.0100 ####[facility] [address] [place], [place], [phone] Phosphoruson 04-27-2025 Phosphate [Mass/Vol] 3.3 mg/dL Normal 2.7-4.5 [facility] Comment on above: Performed By: #### L 300.3900, L500.3400, L501.2300, L501.5200, L501.9520, L500.4050, L500.2500, L100.0100 ####[facility] [address] [place], [place], [phone] Prothrombin Time w/INRon INR Coag (PPP) [Relative time] 1.0 {INR} Normal [facility] Comment on above: Performed By: #### L 300.3900, L500.3400, L501.2300, L501.5200, L501.9520, L500.4050, L500.2500, L100.0100 ####[facility] [address] [place], [address] PT Coag (PPP) [Time] 12.9 s Normal 11.7-14.9 [facility] Comment on above: Performed By: #### L 300.3900, L500.3400, L501.2300, L501.5200, L501.9520, L500.4050, L500.2500, L100.0100 ####[facility] [address] [place], [address] Prothrombin timeOrdered By: Julius Moncada on 04-27-2025 PT Coag (PPP) [Time] 12.9 s 11.7-14.9 [facility] TSH DL <= 0.005 mIU/L QnOrde red By: Julius Moncada on 04-27-2025 TSH Qn 4.010 uIU/mL 0.300-4.200 [facility] Comment on above: Previous reported re sult: 3.960 uIU/mLEdited by: BRITTNEY on 04/27/25:0236 AMENDED REPORT 04/27/25235 TSH previously reported as: 3.960 uIU/mL Thyroid Stim Hormone (TSH)on 04-27-2025 TSH 4.010 uIU/mL Normal 0.300-4.200 [facility] Comment on above: Result Comment: AMENDED REPORT 04/27/25235 TSH previously reported as: 3.960 uIU/mL Performed By: #### L 300.3900, L500.3400, L501.2300, L501.5200, L501.9520, L500.4050, L500.2500, L100.0100 ####[facility] [address] [place], [place], [phone] Abdomen/Pelvis W IV Cont ONL Yon 04-26-2025 Abdomen/Pelvis W IV Cont ONLY Normal [facility] Absolute lymphocyte countOrd ered By: Humphrey Garcia on 04-26-2025 Lymphocytes Auto (Unsp spec) [#/Vol] 0.76 10*3/uL Low 0.83-4.51 [facility] Absolute neutrophil countOrd ered By: Humphrey Garcia on 04-26-2025 Neutrophils (Bld) [#/Vol] 8.8 10*3/uL High 2.0-7.7 [facility] Alcohol, Blood (Medical)-Ser umon 04-26-2025 SERUM ETOH < 10.1 Normal <=10.0 [facility] Comment on above: Result Comment: This test is for medical purposes only. The legaldefinition of intoxication varies according to local law. Performed By: #### L 501.9100 ####[facility] [address] [place], [address] Anion gap in Serum or Plasma Ordered By: Humphrey Garcia on 04-26-2025 Anion gap [Moles/Vol] 36 mmol/L High 5-15 [facility] Automated lymphocyte count a s percentage of total leukocytesOrdered By: Humphrey Garcia on 04-26-2025 Lymphocytes/100 WBC Auto (Unsp spec) 7.3 % Low 19-41 [facility] BUN/creatinine ratioOrdered By: Humphrey Garcia on 04-26-2025 Urea nitrogen/Creatinine [Mass ratio] 11.2 mg/mg 10-20 [facility] Basophil percentageOrdered B y: Humphrey Garcia on 04-26-2025 Basophils/100 WBC (Bld) 0.4 % 0-1 [facility] Bilirubin Test strip Ql (U)O rdered By: Humphrey Garcia on 04-26-2025 Bilirubin Ql (U) Negative Negative [facility] Bilirubin, totalOrdered By: Humphrey Garcia on 04-26-2025 Bilirubin [Mass/Vol] 1.42 mg/dL High 0.00-1.30 [facility] CBC W/Diff, Automatedon 03-30 Absolute Lymph 0.76 X10 3/uL Low 0.83-4.51 [facility] Comment on above: Performed By: #### L 501.2450, L500.4050, L100.0100 ####[facility] [address] [place], [address] Absolute Neut 8.8 X10 3/uL High 2.0-7.7 [facility] Comment on above: Performed By: #### L 501.2450, L500.4050, L100.0100 ####[facility] [address] [place], [address] Basophils/100 WBC (Bld) 0.4 % Normal 0-1 [facility] Comment on above: Performed By: #### L 501.2450, L500.4050, L100.0100 ####[facility] [address] [place], [address] Eosinophils/100 WBC (Bld) 0.0 % Normal 0-5 [facility] Comment on above: Performed By: #### L 501.2450, L500.4050, L100.0100 ####[facility] [address] [place], [address] Erythrocyte distribution width (RBC) [Ratio] 12.8 % Normal 11.6-14.6 [facility] Comment on above: Performed By: #### L 501.2450, L500.4050, L100.0100 ####[facility] [address] [place], [address] Hematocrit (Bld) [Volume fraction] 42.8 % Normal 37-47 [facility] Comment on above: Performed By: #### L 501.2450, L500.4050, L100.0100 ####[facility] [address] [place], [address] Hemoglobin (Bld) [Mass/Vol] 14.8 g/dL Normal 12.0-15.0 [facility] Comment on above: Performed By: #### L 501.2450, L500.4050, L100.0100 ####[facility] [address] [place], [address] IG% 0.700 Normal 0.0-0.9 [facility] Comment on above: Result Comment: IG% - Immature Granulocytes (promyelocytes, myelocytes andmetamyelocytes) > 1% indicates that a LEFT SHIFT is Present. Performed By: #### L 501.2450, L500.4050, L100.0100 ####[facility] [address] [place], [address] Lymphocytes/100 WBC (Bld) 7.3 % Low 19-41 [facility] Comment on above: Performed By: #### L 501.2450, L500.4050, L100.0100 ####[facility] [address] [place], [address] MCH (RBC) [Entitic mass] 36.2 pg High 27.0-32.0 [facility] Comment on above: Performed By: #### L 501.2450, L500.4050, L100.0100 ####[facility] [address] [place], [address] MCHC (RBC) [Mass/Vol] 34.6 g/dL Normal 32-36 [facility] Comment on above: Performed By: #### L 501.2450, L500.4050, L100.0100 ####[facility] [address] [place], [address] MCV (RBC) [Entitic vol] 104.6 fL High 81-99 [facility] Comment on above: Performed By: #### L 501.2450, L500.4050, L100.0100 ####[facility] [address] [place], [address] Monocytes/100 WBC (Bld) 7.0 % Normal 0-10 [facility] Comment on above: Performed By: #### L 501.2450, L500.4050, L100.0100 ####[facility] [address] [place], [address] Neutrophils/100 WBC (Bld) 84.6 % High 47-70 [facility] Comment on above: Performed By: #### L 501.2450, L500.4050, L100.0100 ####[facility] [address] [place], [address] Nucleated RBC (Bld) [#/Vol] 0.2 10*3/uL Normal 0-5 [facility] Comment on above: Performed By: #### L 501.2450, L500.4050, L100.0100 ####[facility] [address] [place], [address] Platelet mean volume (Bld) [Entitic vol] 10.0 fL Normal 6.2-12.0 [facility] Comment on above: Performed By: #### L 501.2450, L500.4050, L100.0100 ####[facility] [address] [place], [address] Platelets (Bld) [#/Vol] 175 10*3/uL Normal 150-450 [facility] Comment on above: Performed By: #### L 501.2450, L500.4050, L100.0100 ####[facility] [address] [place], [address] RBC (Bld) [#/Vol] 4.09 10*6/uL Low 4.2-5.4 [facility] Comment on above: Performed By: #### L 501.2450, L500.4050, L100.0100 ####[facility] [address] [place], [address] RDW SD 49.4 fl High 35.1-43.9 [facility] Comment on above: Performed By: #### L 501.2450, L500.4050, L100.0100 ####[facility] [address] [place], [address] WBC (Bld) [#/Vol] 10.4 10*3/uL Normal 4.4-11.0 [facility] Comment on above: Performed By: #### L 501.2450, L500.4050, L100.0100 ####[facility] [address] [place], [address] Carbon dioxide, total [Moles /volume] in Central venous bloodOrdered By: Humphrey Garcia on 04-26-2025 CO2 [Moles/Vol] 16.4 mmol/L Low 21.0-32.0 [facility] Chloride assayOrdered By: Edison Garcia on 04-26-2025 Chloride [Moles/Vol] 87 mmol/L Low 98-108 [facility] Comprehensive Metabolic Prof ilon 04-26-2025 Albumin [Mass/Vol] 4.5 g/dL Normal 3.5-5.0 [facility] Comment on above: Performed By: #### L 501.2450, L500.4050, L100.0100 ####[facility] [address] [place], [address] Albumin/Globulin [Mass ratio] 1.4 {ratio} Normal 0.9-2.4 [facility] Comment on above: Performed By: #### L 501.2450, L500.4050, L100.0100 ####[facility] [address] [place], [address] ALK PHOS 122 U/L High 35-104 [facility] Comment on above: Performed By: #### L 501.2450, L500.4050, L100.0100 ####[facility] [address] [place], [address] ALT [Catalytic activity/Vol] 62 U/L High <=34 [facility] Comment on above: Performed By: #### L 501.2450, L500.4050, L100.0100 ####[facility] [address] [place], [address] AST [Catalytic activity/Vol] 127 U/L High <=31 [facility] Comment on above: Performed By: #### L 501.2450, L500.4050, L100.0100 ####[facility] [address] [place], [address] Bilirubin [Mass/Vol] 1.42 mg/dL High 0.00-1.30 [facility] Comment on above: Performed By: #### L 501.2450, L500.4050, L100.0100 ####[facility] [address] [place], [address] BUN/CRE 11.2 RATIO Normal 10-20 [facility] Comment on above: Performed By: #### L 501.2450, L500.4050, L100.0100 ####[facility] [address] [place], [address] Calcium [Mass/Vol] 8.9 mg/dL Normal 7.6-11.0 [facility] Comment on above: Performed By: #### L 501.2450, L500.4050, L100.0100 ####[facility] [address] [place], [address] Chloride [Moles/Vol] 87 mmol/L Low 98-108 [facility] Comment on above: Performed By: #### L 501.2450, L500.4050, L100.0100 ####[facility] [address] [place], [address] CO2 [Moles/Vol] 16.4 mmol/L Low 21.0-32.0 [facility] Comment on above: Performed By: #### L 501.2450, L500.4050, L100.0100 ####[facility] [address] [place], [address] Creatinine [Mass/Vol] 0.70 mg/dL Normal 0.70-1.20 [facility] Comment on above: Performed By: #### L 501.2450, L500.4050, L100.0100 ####[facility] [address] [place], [address] ECRCL 84.87 ml/min Normal 50-250 [facility] Comment on above: Performed By: #### L 501.2450, L500.4050, L100.0100 ####[facility] [address] [place], [address] GAP 36 High 5-15 [facility] Comment on above: Performed By: #### L 501.2450, L500.4050, L100.0100 ####[facility] [address] [place], [address] GFR/1.73 sq M.predicted among non-blacks MDRD (S/P/Bld) [Vol rate/Area] 107 mL/min/{1.73_m2} Normal >60 [facility] Comment on above: Result Comment: mL/m in/1.73m2 CKD-EPI Creatinine Equation (2020) Performed By: #### L 501.2450, L500.4050, L100.0100 ####[facility] [address] [place], [address] Globulin (S) [Mass/Vol] 3.2 g/dL Normal 2.2-4.2 [facility] Comment on above: Performed By: #### L 501.2450, L500.4050, L100.0100 ####[facility] [address] [place], [address] Glucose [Mass/Vol] 156 mg/dL High 70-99 [facility] Comment on above: Performed By: #### L 501.2450, L500.4050, L100.0100 ####[facility] [address] [place], [address] Potassium [Moles/Vol] 2.8 mmol/L Low 3.3-5.1 [facility] Comment on above: Performed By: #### L 501.2450, L500.4050, L100.0100 ####[facility] [address] [place], [address] Sodium [Moles/Vol] 139 mmol/L Normal 133-145 [facility] Comment on above: Performed By: #### L 501.2450, L500.4050, L100.0100 ####[facility] [address] [place], [address] T PROT 7.7 g/dL Normal 5.9-8.4 [facility] Comment on above: Performed By: #### L 501.2450, L500.4050, L100.0100 ####[facility] [address] [place], [address] Urea nitrogen [Mass/Vol] 8 mg/dL Normal 4-19 [facility] Comment on above: Performed By: #### L 501.2450, L500.4050, L100.0100 ####[facility] [address] [place], [address] Emergency Department Summary on 04-26-2025 Emergency Department Summary Normal [facility] Eosinophil percentageOrdered By: Humphrey Garcia on 04-26-2025 Eosinophils/100 WBC (Bld) 0.0 % 0-5 [facility] Erythrocyte distribution wid th ratioOrdered By: Humphrey Garcia on 04-26-2025 Erythrocyte distribution width (RBC) [Ratio] 12.8 % 11.6-14.6 [facility] Erythrocyte distribution wid th standard deviationOrdered By: Humphrey Garcia on 04-26-2025 Erythrocyte distribution width (RBC) [Ratio] 49.4 fl High 35.1-43.9 [facility] Glomerular filtration rate ( GFR) estimation/1.73 sq m using serum, plasma, or whole bOrdered By: Humphrey Garcia on 04-26-2025 GFR/1.73 sq M.predicted among non-blacks MDRD (S/P/Bld) [Vol rate/Area] 107 mL/min/{1.73_m2} >60 [facility] Comment on above: mL/min/1.73m2 CKD-EP I Creatinine Equation (2020) H AND P Exam - [facility] 04-26-2025 H&P Exam - Hospitalist Normal [facility] Hematocrit Auto (Bld) [Volum e fraction]Ordered By: Humphrey Garcia on 04-26-2025 Hematocrit (Bld) [Volume fraction] 42.8 % 37-47 [facility] Hemoglobin measurementOrdere d By: Humphrey Garcia on 04-26-2025 Hemoglobin (Bld) [Mass/Vol] 14.8 g/dL 12.0-15.0 [facility] Immature granulocytes/100 WB C Auto (Bld)Ordered By: Humphrey Garcia on 04-26-2025 Immature granulocytes/100 WBC (Bld) 0.700 % 0.0-0.9 [facility] Comment on above: IG% - Immature Granu locytes (promyelocytes, myelocytes and metamyelocytes) > 1% indicates that a LEFT SHIFT is Present. Ketones Test strip Ql (U)Ord ered By: Humphrey Garcia on 04-26-2025 Ketones Ql (U) 150 mg/dl Negative [facility] Comment on above: CRITICAL VALUE *HCRI TICAL VALUE CALLED TO RKHSTQ81/29/25 1638 Angelita Herzog.RESULTS READ BACK BY SAME. Laboratory - Chemistry and C hemistry - challengeOrdered By: Humphrey Garcia on 04-26-2025 AST [Catalytic activity/Vol] 127 U/L High <32 [facility] Lipaseon 04-26-2025 Lipase [Catalytic activity/Vol] 1045 U/L High 13-75 [facility] Comment on above: Result Comment: Plea se note:LIPASE revised reference range effective 23.New Lipase methodology. Expected to produce lower valuesthan the previous assay method.NEW Reference Range: 13 - 75 U/L Performed By: #### L 501.2450, L500.4050, L100.0100 ####[facility] [address] [place], [address] Lipase measurementOrdered By : Humphrey Garcia on 04-26-2025 Lipase [Catalytic activity/Vol] 1045 U/L High 13-75 [facility] Comment on above: Please note:LIPASE r evised reference range effective 23. New Lipase methodology. Expected to produce lower values than the previous assay method. NEW Reference Range: 13 - 75 U/L MCV (mean corpuscular volume ) determinationOrdered By: Humphrey Garcia on 04-26-2025 MCV (RBC) [Entitic vol] 104.6 fL High 81-99 [facility] Mean corpuscular hemoglobin (MCH) determinationOrdered By: Humphrey Garcia on 04-26-2025 MCH (RBC) [Entitic mass] 36.2 pg High 27.0-32.0 [facility] Mean corpuscular hemoglobin concentration (MCHC) determinationOrdered By: Humphrey Garcia on 04-26-2025 MCHC (RBC) [Mass/Vol] 34.6 g/dL 32-36 [facility] Mean platelet volume determi nationOrdered By: Humphrey Garcia on 04-26-2025 Platelet mean volume (Bld) [Entitic vol] 10.0 fL 6.2-12.0 [facility] Microscopic analysis of urin e for red blood cells (RBC)Ordered By: Humphrey Garcia on 04-26-2025 Microscopic analysis of urine for red blood cells (RBC) 0-5 SEEN /hpf 0-5 [facility] Monocyte percentageOrdered B y: Humphrey Garcia on 04-26-2025 Monocytes/100 WBC (Bld) 7.0 % 0-10 [facility] Mucus LM Ql (Urine sed)Order ed By: Humphrey Garcia on 04-26-2025 Mucus Ql (Urine sed) 0 SEEN /hpf [facility] Neutrophil percentageOrdered By: Humphrey Garcia on 04-26-2025 Neutrophils/100 WBC (Bld) 84.6 % High 47-70 [facility] Nitrite Test strip Ql (U)Ord ered By: Humphrey Garcia on 04-26-2025 Nitrite Ql (U) Negative Negative [facility] Nucleated red blood cell per centageOrdered By: Humphrey Garcia on 04-26-2025 Nucleated RBC/100 WBC (Bld) [Ratio] 0.2 % 0-5 [facility] Platelet countOrdered By: Edison Garcia on 04-26-2025 Platelets (Bld) [#/Vol] 175 10*3/uL 150-450 [facility] Potassium measurement (mass/ volume)Ordered By: Humphrey Garcia on 04-26-2025 Potassium (Unsp spec) [Mass/Vol] 2.8 mmol/L Low 3.3-5.1 [facility] Protein Test strip Ql (U)Ord ered By: Humphrey Garcia on 04-26-2025 Protein Ql (U) 30 mg/dl High Negative [facility] Prothrombin Time w/INRon INR Coag (PPP) [Relative time] 1.0 {INR} Normal [facility] Comment on above: Performed By: #### L 300.3900 ####[facility] [address] [place], [place], [id number] PT Coag (PPP) [Time] 13.3 s Normal 11.7-14.9 [facility] Comment on above: Performed By: #### L 300.3900 ####[facility] [address] [place], [place], [id number] RBC Auto (Bld) [#/Vol]Ordere d By: Humphrey Garcia on 04-26-2025 RBC (Bld) [#/Vol] 4.09 10*6/uL Low 4.2-5.4 [facility] Serum creatinine measurement (mass/volume)Ordered By: Humphrey Garcia on 04-26-2025 Creatinine [Mass/Vol] 0.70 mg/dL 0.70-1.20 [facility] Serum globulin measurementOr dered By: Humphrey Garcia on 05-29-2025 Globulin (S) [Mass/Vol] 3.2 g/dL 2.2-4.2 [facility] Serum glucose measurement (m ass/volume)Ordered By: Humphrey Garcia on 04-26-2025 Glucose [Mass/Vol] 156 mg/dL High 70-99 [facility] Serum or plasma alanine wilkerson otransferase (ALT) measurementOrdered By: Humphrey Garcia on 04-26-2025 ALT [Catalytic activity/Vol] 62 U/L High <35 [facility] Serum or plasma albumin alphonso urement (mass/volume)Ordered By: Humphrey Garcia on 04-26-2025 Albumin [Mass/Vol] 4.5 g/dL 3.5-5.0 [facility] Serum or plasma albumin/glob ulin mass ratioOrdered By: Humphrey Garcia on 04-26-2025 Albumin/Globulin [Mass ratio] 1.4 {ratio} 0.9-2.4 [facility] Serum or plasma alkaline trinity sphatase measurementOrdered By: Humphrey Garcia on 04-26-2025 ALP [Catalytic activity/Vol] 122 U/L High 35-104 [facility] Serum or plasma calcium alphonso urement (mass/volume)Ordered By: Humphrey Garcia on 04-26-2025 Calcium [Mass/Vol] 8.9 mg/dL 7.6-11.0 [facility] Serum or plasma ethanol alphonso urement (mass/volume)Ordered By: Humphrey Garcia on 04-26-2025 Ethanol [Mass/Vol] mg/dL <10.1 [facility] Comment on above: This test is for med ical purposes only. The legal definition of intoxication varies according to local law. Serum or plasma urea nitroge n measurement (mass/volume)Ordered By: Humphrey Garcia on 04-26-2025 Urea nitrogen [Mass/Vol] 8 mg/dL 4-19 [facility] Sodium levelOrdered By: Scout Garcia on 04-26-2025 Sodium [Moles/Vol] 139 mmol/L 133-145 [facility] Squamous epithelial cells de tection in urine sediment by light microscopyOrdered By: Humphrey Garcia on 04-26-2025 Epithelial cells.squamous LM Ql (Urine sed) 0-5 SEEN /hpf 5-10 [facility] Total proteinOrdered By: Carin Garcia on 04-26-2025 Protein [Mass/Vol] 7.7 g/dL 5.9-8.4 [facility] Urinalysis, Completeon 04-26 EPI,SQUAMOUS 0-5 SEEN Normal 5-10 [facility] Comment on above: Order Comment: CLEAN CATCH Performed By: #### L 400.0001 ####[facility] [address] [place], [address] RBC 0-5 SEEN Normal 0-5 [facility] Comment on above: Order Comment: CLEAN CATCH Performed By: #### L 400.0001 ####[facility] [address] [place], [address] BACTERIA 0 SEEN Normal None Seen [facility] Comment on above: Order Comment: CLEAN CATCH Performed By: #### L 400.0001 ####[facility] [address] [place], [address] Mucus Ql (Urine sed) 0 SEEN Normal [facility] Comment on above: Order Comment: CLEAN CATCH Performed By: #### L 400.0001 ####[facility] [address] [place], [address] WBC 0 SEEN Normal 0-5 [facility] Comment on above: Order Comment: CLEAN CATCH Performed By: #### L 400.0001 ####[facility] [address] [place], [address] Urine clarityOrdered By: Carin Garcia on 04-26-2025 Clarity (U) Clear Clear [facility] Urine color determinationOrd ered By: Humphrey Garcia on 04-26-2025 Color (U) Yellow Yellow [facility] Urine glucose detectionOrder ed By: Humphrey Garcia on 04-26-2025 Glucose Ql (U) 1000 mg/dl High Normal [facility] Urine leukocyte esterase det ection by dipstickOrdered By: Humphrey Garcia on 04-26-2025 Leukocyte esterase Test strip Ql (U) Negative Negative [facility] Urine pHOrdered By: Humphrey Juarez nder on 04-26-2025 pH (U) 6.0 [pH] 5.0 - 8.0 [facility] Urine sediment bacteria coun t by microscopy (number/high power field)Ordered By: Humphrey Garcia on 04-26-2025 Bacteria LM.HPF (Urine sed) [#/Area] 0 /[HPF] None Seen [facility] Urine specific gravity measu rementOrdered By: Humphrey Garcia on 04-26-2025 Specific gravity (U) [Rel density] 1.010 1.002-1.030 [facility] Urine urobilinogen measureme ntOrdered By: Humphrey Garcia on 04-26-2025 Urobilinogen Ql (U) 1 mg/dl High Normal [facility] White blood cell (WBC) count Ordered By: Humphrey Garcia on 04-26-2025 WBC (Bld) [#/Vol] 10.4 10*3/uL 4.4-11.0 [facility] White blood cell countOrdere d By: Humphrey Garcia on 04-26-2025 White blood cell count 0 SEEN /hpf 0-5 [facility] 12 Lead EKGon 04-11-2025 12 Lead EKG Normal [facility] Absolute lymphocyte countOrd ered By: Francisco Colon on 04-11-2025 Lymphocytes Auto (Unsp spec) [#/Vol] 2.10 10*3/uL 0.83-4.51 [facility] Absolute neutrophil countOrd ered By: Francisco Colon on 04-11-2025 Neutrophils (Bld) [#/Vol] 2.1 10*3/uL 2.0-7.7 [facility] Alcohol, Blood (Medical)-Ser umon 04-11-2025 SERUM ETOH 328.0 mg/dL Invalid Interpretation Code <=10.0 [facility] Comment on above: Result Comment: Crit ical Result(s) Called at:2346 by: LUISITO VELASQUEZN TO LELANDAL??Results read back by same.This test is for medical purposes only. The legaldefinition of intoxication varies according to local law. Performed By: #### L 501.4021, L100.0100, L500.2500, L501.9100, L501.2450 ####[facility] [address] [place], [address] Anion gap in Serum or Plasma Ordered By: Francisco Colon on 04-11-2025 Anion gap [Moles/Vol] 16 mmol/L High 5-15 [facility] Automated lymphocyte count a s percentage of total leukocytesOrdered By: Francisco Colon on 04-11-2025 Lymphocytes/100 WBC Auto (Unsp spec) 42.0 % High [facility] BUN/creatinine ratioOrdered By: Francisco Colon on 04-11-2025 Urea nitrogen/Creatinine [Mass ratio] 20.2 mg/mg High 09-17 [facility] Basic Metabolic Profile (BMP )on 04-11-2025 BUN/CRE 20.2 RATIO High 09-17 [facility] Comment on above: Performed By: #### L 501.4021, L100.0100, L500.2500, L501.9100, L501.2450 ####[facility] [address] [place], [address] Calcium [Mass/Vol] 8.8 mg/dL Normal 7.6-11.0 [facility] Comment on above: Performed By: #### L 501.4021, L100.0100, L500.2500, L501.9100, L501.2450 ####[facility] [address] [place], [address] Chloride [Moles/Vol] 100 mmol/L Normal 98-108 [facility] Comment on above: Performed By: #### L 501.4021, L100.0100, L500.2500, L501.9100, L501.2450 ####[facility] [address] [place], [address] CO2 [Moles/Vol] 28.2 mmol/L Normal 21.0-32.0 [facility] Comment on above: Performed By: #### L 501.4021, L100.0100, L500.2500, L501.9100, L501.2450 ####[facility] [address] [place], [address] Creatinine [Mass/Vol] 0.53 mg/dL Low 0.70-1.20 [facility] Comment on above: Performed By: #### L 501.4021, L100.0100, L500.2500, L501.9100, L501.2450 ####[facility] [address] [place], [address] ECRCL 112.09 ml/min Normal 50-250 [facility] Comment on above: Performed By: #### L 501.4021, L100.0100, L500.2500, L501.9100, L501.2450 ####[facility] [address] [place], [address] GAP 16 High 5-15 [facility] Comment on above: Performed By: #### L 501.4021, L100.0100, L500.2500, L501.9100, L501.2450 ####[facility] [address] [place], [address] GFR/1.73 sq M.predicted among non-blacks MDRD (S/P/Bld) [Vol rate/Area] 114 mL/min/{1.73_m2} Normal >60 [facility] Comment on above: Result Comment: mL/m in/1.73m2 CKD-EPI Creatinine Equation (2020) Performed By: #### L 501.4021, L100.0100, L500.2500, L501.9100, L501.2450 ####[facility] [address] [place], [address] Glucose [Mass/Vol] 131 mg/dL High 70-99 [facility] Comment on above: Performed By: #### L 501.4021, L100.0100, L500.2500, L501.9100, L501.2450 ####[facility] [address] [place], [address] Potassium [Moles/Vol] 3.2 mmol/L Low 3.3-5.1 [facility] Comment on above: Performed By: #### L 501.4021, L100.0100, L500.2500, L501.9100, L501.2450 ####[facility] [address] [place], [address] Sodium [Moles/Vol] 144 mmol/L Normal 133-145 [facility] Comment on above: Performed By: #### L 501.4021, L100.0100, L500.2500, L501.9100, L501.2450 ####[facility] [address] [place], [address] Urea nitrogen [Mass/Vol] 11 mg/dL Normal 4-19 [facility] Comment on above: Performed By: #### L 501.4021, L100.0100, L500.2500, L501.9100, L501.2450 ####[facility] [address] [place], [address] Basophil percentageOrdered B y: Francisco Colon on 04-11-2025 Basophils/100 WBC (Bld) 1.2 % High 0-1 [facility] Bilirubin Test strip Ql (U)O rdered By: Francisco Colon on 04-11-2025 Bilirubin Ql (U) Negative Negative [facility] CBC W/Diff, Automatedon 03-29 Absolute Lymph 2.10 X10 3/uL Normal 0.83-4.51 [facility] Comment on above: Performed By: #### L 501.4021, L100.0100, L500.2500, L501.9100, L501.2450 ####[facility] [address] [place], [address] Absolute Neut 2.1 X10 3/uL Normal 2.0-7.7 [facility] Comment on above: Performed By: #### L 501.4021, L100.0100, L500.2500, L501.9100, L501.2450 ####[facility] [address] [place], [address] Basophils/100 WBC (Bld) 1.2 % High 0-1 [facility] Comment on above: Performed By: #### L 501.4021, L100.0100, L500.2500, L501.9100, L501.2450 ####[facility] [address] [place], [address] Eosinophils/100 WBC (Bld) 0.8 % Normal 0-5 [facility] Comment on above: Performed By: #### L 501.4021, L100.0100, L500.2500, L501.9100, L501.2450 ####[facility] [address] [place], [address] Erythrocyte distribution width (RBC) [Ratio] 13.5 % Normal 11.6-14.6 [facility] Comment on above: Performed By: #### L 501.4021, L100.0100, L500.2500, L501.9100, L501.2450 ####[facility] [address] [place], [address] Hematocrit (Bld) [Volume fraction] 37.7 % Normal 37-47 [facility] Comment on above: Performed By: #### L 501.4021, L100.0100, L500.2500, L501.9100, L501.2450 ####[facility] [address] [place], [address] Hemoglobin (Bld) [Mass/Vol] 13.5 g/dL Normal 12.0-15.0 [facility] Comment on above: Performed By: #### L 501.4021, L100.0100, L500.2500, L501.9100, L501.2450 ####[facility] [address] [place], [address] IG% 0.200 Normal 0.0-0.9 [facility] Comment on above: Result Comment: IG% - Immature Granulocytes (promyelocytes, myelocytes andmetamyelocytes) > 1% indicates that a LEFT SHIFT is Present. Performed By: #### L 501.4021, L100.0100, L500.2500, L501.9100, L501.2450 ####[facility] [address] [place], [address] Lymphocytes/100 WBC (Bld) 42.0 % High 19-41 [facility] Comment on above: Performed By: #### L 501.4021, L100.0100, L500.2500, L501.9100, L501.2450 ####[facility] [address] [place], [address] MCH (RBC) [Entitic mass] 37.4 pg High 27.0-32.0 [facility] Comment on above: Performed By: #### L 501.4021, L100.0100, L500.2500, L501.9100, L501.2450 ####[facility] [address] [place], [address] MCHC (RBC) [Mass/Vol] 35.8 g/dL Normal 32-36 [facility] Comment on above: Performed By: #### L 501.4021, L100.0100, L500.2500, L501.9100, L501.2450 ####[facility] [address] [place], [address] MCV (RBC) [Entitic vol] 104.4 fL High 81-99 [facility] Comment on above: Performed By: #### L 501.4021, L100.0100, L500.2500, L501.9100, L501.2450 ####[facility] [address] [place], [address] Monocytes/100 WBC (Bld) 13.2 % High 0-10 [facility] Comment on above: Performed By: #### L 501.4021, L100.0100, L500.2500, L501.9100, L501.2450 ####[facility] [address] [place], [address] Neutrophils/100 WBC (Bld) 42.6 % Low 47-70 [facility] Comment on above: Performed By: #### L 501.4021, L100.0100, L500.2500, L501.9100, L501.2450 ####[facility] [address] [place], [address] Nucleated RBC (Bld) [#/Vol] 0.4 10*3/uL Normal 0-5 [facility] Comment on above: Performed By: #### L 501.4021, L100.0100, L500.2500, L501.9100, L501.2450 ####[facility] [address] [place], [address] Platelet mean volume (Bld) [Entitic vol] 9.6 fL Normal 6.2-12.0 [facility] Comment on above: Performed By: #### L 501.4021, L100.0100, L500.2500, L501.9100, L501.2450 ####[facility] [address] [place], [address] Platelets (Bld) [#/Vol] 246 10*3/uL Normal 150-450 [facility] Comment on above: Performed By: #### L 501.4021, L100.0100, L500.2500, L501.9100, L501.2450 ####[facility] [address] [place], [address] RBC (Bld) [#/Vol] 3.61 10*6/uL Low 4.2-5.4 [facility] Comment on above: Performed By: #### L 501.4021, L100.0100, L500.2500, L501.9100, L501.2450 ####[facility] [address] [place], [address] RDW SD 51.4 fl High 35.1-43.9 [facility] Comment on above: Performed By: #### L 501.4021, L100.0100, L500.2500, L501.9100, L501.2450 ####[facility] [address] [place], [address] WBC (Bld) [#/Vol] 5.0 10*3/uL Normal 4.4-11.0 [facility] Comment on above: Performed By: #### L 501.4021, L100.0100, L500.2500, L501.9100, L501.2450 ####[facility] [address] [place], [address] Carbon dioxide, total [Moles /volume] in Central venous bloodOrdered By: Francisco Colon on 04-11-2025 CO2 [Moles/Vol] 28.2 mmol/L 21.0-32.0 [facility] Chest PA and Lateralon 04-11 Chest PA and Lateral Normal [facility] Chloride assayOrdered By: Peyman Colon on 04-11-2025 Chloride [Moles/Vol] 100 mmol/L 98-108 [facility] Emergency Department Summary on 04-11-2025 Emergency Department Summary Normal [facility] Eosinophil percentageOrdered By: Francisco Colon on 04-11-2025 Eosinophils/100 WBC (Bld) 0.8 % 0-5 [facility] Erythrocyte distribution wid th ratioOrdered By: Francisco Colon on 04-11-2025 Erythrocyte distribution width (RBC) [Ratio] 13.5 % 11.6-14.6 [facility] Erythrocyte distribution wid th standard deviationOrdered By: Francisco Colon on 04-11-2025 Erythrocyte distribution width (RBC) [Ratio] 51.4 fl High 35.1-43.9 [facility] Glomerular filtration rate ( GFR) estimation/1.73 sq m using serum, plasma, or whole bOrdered By: Francisco Colon on 04-11-2025 GFR/1.73 sq M.predicted among non-blacks MDRD (S/P/Bld) [Vol rate/Area] 114 mL/min/{1.73_m2} >60 [facility] Comment on above: mL/min/1.73m2 CKD-EP I Creatinine Equation (2020) Hematocrit Auto (Bld) [Volum e fraction]Ordered By: Francisco Colon on 04-11-2025 Hematocrit (Bld) [Volume fraction] 37.7 % 37-47 [facility] Hemoglobin measurementOrdere d By: Francisco Colon on 04-11-2025 Hemoglobin (Bld) [Mass/Vol] 13.5 g/dL 12.0-15.0 [facility] Immature granulocytes/100 WB C Auto (Bld)Ordered By: Francisco Colon on 04-11-2025 Immature granulocytes/100 WBC (Bld) 0.200 % 0.0-0.9 [facility] Comment on above: IG% - Immature Granu locytes (promyelocytes, myelocytes and metamyelocytes) > 1% indicates that a LEFT SHIFT is Present. Ketones Test strip Ql (U)Ord ered By: Francisco Colon on 04-11-2025 Ketones Ql (U) Negative Negative [facility] L501.4021on 04-11-2025 Trop T High Sen < 6 Normal <=14 [facility] Comment on above: Performed By: #### L 501.4021, L100.0100, L500.2500, L501.9100, L501.2450 ####[facility] [address] [place], [address] Lipaseon 04-11-2025 Lipase [Catalytic activity/Vol] 70 U/L Normal 13-75 [facility] Comment on above: Result Comment: Pledaysi se note:LIPASE revised reference range effective 23.New Lipase methodology. Expected to produce lower valuesthan the previous assay method.NEW Reference Range: 13 - 75 U/L Performed By: #### L 501.4021, L100.0100, L500.2500, L501.9100, L501.2450 ####[facility] [address] [place], [address] Lipase measurementOrdered By : Francisco Colon on 04-11-2025 Lipase [Catalytic activity/Vol] 70 U/L 13-75 [facility] Comment on above: Please note:LIPASE r evised reference range effective 23. New Lipase methodology. Expected to produce lower values than the previous assay method. NEW Reference Range: 13 - 75 U/L MCV (mean corpuscular volume ) determinationOrdered By: Francisco Colon on 04-11-2025 MCV (RBC) [Entitic vol] 104.4 fL High 81-99 [facility] Mean corpuscular hemoglobin (MCH) determinationOrdered By: Francisco Colon on 04-11-2025 MCH (RBC) [Entitic mass] 37.4 pg High 27.0-32.0 [facility] Mean corpuscular hemoglobin concentration (MCHC) determinationOrdered By: Francisco Colon on 04-11-2025 MCHC (RBC) [Mass/Vol] 35.8 g/dL 32-36 [facility] Mean platelet volume determi nationOrdered By: Francisco Colon on 04-11-2025 Platelet mean volume (Bld) [Entitic vol] 9.6 fL 6.2-12.0 [facility] Microscopic analysis of urin e for red blood cells (RBC)Ordered By: Francisco Colon on 04-11-2025 Microscopic analysis of urine for red blood cells (RBC) 0 SEEN /hpf 0-5 [facility] Monocyte percentageOrdered B y: Francisco Colon on 04-11-2025 Monocytes/100 WBC (Bld) 13.2 % High 0-10 [facility] Mucus LM Ql (Urine sed)Order ed By: Francisco Colon on 04-11-2025 Mucus Ql (Urine sed) 0 SEEN /hpf [facility] Neutrophil percentageOrdered By: Francisco Colon on 04-11-2025 Neutrophils/100 WBC (Bld) 42.6 % Low 47-70 [facility] Nitrite Test strip Ql (U)Ord ered By: Francisco Colon on 04-11-2025 Nitrite Ql (U) Negative Negative [facility] Nucleated red blood cell per centageOrdered By: Francisco Colon on 04-11-2025 Nucleated RBC/100 WBC (Bld) [Ratio] 0.4 % 0-5 [facility] Platelet countOrdered By: Peyman Colon on 04-11-2025 Platelets (Bld) [#/Vol] 246 10*3/uL 150-450 [facility] Potassium measurement (mass/ volume)Ordered By: Francisco Colon on 04-11-2025 Potassium (Unsp spec) [Mass/Vol] 3.2 mmol/L Low 3.3-5.1 [facility] Protein Test strip Ql (U)Ord ered By: Francisco Colon on 04-11-2025 Protein Ql (U) 15 mg/dl High Negative [facility] RBC Auto (Bld) [#/Vol]Ordere d By: Francisco Colon on 04-11-2025 RBC (Bld) [#/Vol] 3.61 10*6/uL Low 4.2-5.4 [facility] Serum creatinine measurement (mass/volume)Ordered By: Francisco Colon on 04-11-2025 Creatinine [Mass/Vol] 0.53 mg/dL Low 0.70-1.20 [facility] Serum glucose measurement (m ass/volume)Ordered By: Francisco Colon on 04-11-2025 Glucose [Mass/Vol] 131 mg/dL High 70-99 [facility] Serum or plasma calcium alphonso urement (mass/volume)Ordered By: Francisco Colon on 04-11-2025 Calcium [Mass/Vol] 8.8 mg/dL 7.6-11.0 [facility] Serum or plasma ethanol alphonso urement (mass/volume)Ordered By: Francisco Colon on 04-11-2025 Ethanol [Mass/Vol] 328.0 mg/dL High <10.1 [facility] Comment on above: Critical Result(s) C alled at:5006 by: LUISITO LUJAN Results read back by same.This test is for medical purposes only. The legal definition of intoxication varies according to local law. Serum or plasma urea nitroge n measurement (mass/volume)Ordered By: Francisco Colon on 04-11-2025 Urea nitrogen [Mass/Vol] 11 mg/dL 4-19 [facility] Sodium levelOrdered By: Francisco Colon on 04-11-2025 Sodium [Moles/Vol] 144 mmol/L 133-145 [facility] Squamous epithelial cells de tection in urine sediment by light microscopyOrdered By: Francisco Colon on 04-11-2025 Epithelial cells.squamous LM Ql (Urine sed) 0 SEEN /hpf - [facility] Troponin T.cardiac [Mass/vol ume] in Serum or Plasma by High sensitivity methodOrdered By: Francisco Colon on 04-11-2025 Troponin T.cardiac High sensitivity method [Mass/Vol] < 6 ng/L <14 [facility] Urinalysis, Completeon 04-11 BACTERIA 0 SEEN Normal None Seen [facility] Comment on above: Order Comment: [place] CTOR TO SPECIFY Performed By: #### L 400.0001 ####[facility] [address] [facility] [address] EPI,SQUAMOUS 0 SEEN Normal - [facility] Comment on above: Order Comment: [place] CTOR TO SPECIFY Performed By: #### L 400.0001 ####[facility] [address] [place], [address] Mucus Ql (Urine sed) 0 SEEN Normal [facility] Comment on above: Order Comment: [place] CTOR TO SPECIFY Performed By: #### L 400.0001 ####[facility] [address] [place], [address] RBC 0 SEEN Normal 0-5 [facility] Comment on above: Order Comment: [place] CTOR TO SPECIFY Performed By: #### L 400.0001 ####[facility] [address] [place], [address] WBC 0 SEEN Normal 0-5 [facility] Comment on above: Order Comment: [place] CTOR TO SPECIFY Performed By: #### L 400.0001 ####[facility] [address] [place], [address] Urine clarityOrdered By: Rommel Colon on 04-11-2025 Clarity (U) Clear Clear [facility] Urine color determinationOrd ered By: Francisco Colon on 04-11-2025 Color (U) Yellow Yellow [facility] Urine glucose detectionOrder ed By: Francisco Colon on 04-11-2025 Glucose Ql (U) Normal mg/dl Normal [facility] Urine leukocyte esterase det ection by dipstickOrdered By: Francisco Colon on 04-11-2025 Leukocyte esterase Test strip Ql (U) Negative Negative [facility] Urine pHOrdered By: Francisco Rosenberg ghbecky on 04-11-2025 pH (U) 7.0 [pH] 5.0 - 8.0 [facility] Urine sediment bacteria coun t by microscopy (number/high power field)Ordered By: Francisco Colon on 04-11-2025 Bacteria LM.HPF (Urine sed) [#/Area] 0 /[HPF] None Seen [facility] Urine specific gravity measu rementOrdered By: Francisco Colon on 04-11-2025 Specific gravity (U) [Rel density] 1.010 1.002-1.030 [facility] Urine urobilinogen measureme ntOrdered By: Francisco Colon on 04-11-2025 Urobilinogen Ql (U) Normal mg/dl Normal [facility] White blood cell (WBC) count Ordered By: Francisco Colon on 04-11-2025 WBC (Bld) [#/Vol] 5.0 10*3/uL 4.4-11.0 [facility] White blood cell countOrdere d By: Francisco Colon on 04-11-2025 White blood cell count 0 SEEN /hpf 0-5 [facility] 12 Lead EKGon 04-04-2025 12 Lead EKG Normal [facility] Abdomen/Pelvis W IV Cont ONL Yon 04-04-2025 Abdomen/Pelvis W IV Cont ONLY Normal [facility] Absolute lymphocyte countOrd ered By: ED PROVIDER on 04-04-2025 Lymphocytes Auto (Unsp spec) [#/Vol] 1.23 10*3/uL 0.83-4.51 [facility] Absolute neutrophil countOrd ered By: ED PROVIDER on 04-04-2025 Neutrophils (Bld) [#/Vol] 6.8 10*3/uL 2.0-7.7 [facility] Anion gap in Serum or Plasma Ordered By: Imani Knight on 04-04-2025 Anion gap [Moles/Vol] 18 mmol/L High 5-15 [facility] Automated lymphocyte count a s percentage of total leukocytesOrdered By: ED PROVIDER on 04-04-2025 Lymphocytes/100 WBC Auto (Unsp spec) 14.0 % Low 19-41 [facility] BUN/creatinine ratioOrdered By: Imani Knight on 04-04-2025 Urea nitrogen/Creatinine [Mass ratio] 8.7 mg/mg Low 10-20 [facility] Basic Metabolic Profile (BMP )on 04-04-2025 BUN/CRE 8.7 RATIO Low 10- [facility] Comment on above: Performed By: #### L 501.4021, L100.0100, L500.2500 ####[facility] [address] [place], [address] Calcium [Mass/Vol] 8.4 mg/dL Normal 7.6-11.0 [facility] Comment on above: Performed By: #### L 501.4021, L100.0100, L500.2500 ####[facility] [address] [place], [address] Chloride [Moles/Vol] 94 mmol/L Low 98-108 [facility] Comment on above: Performed By: #### L 501.4021, L100.0100, L500.2500 ####[facility] [address] [place], [address] CO2 [Moles/Vol] 27.3 mmol/L Normal 21.0-32.0 [facility] Comment on above: Performed By: #### L 501.4021, L100.0100, L500.2500 ####[facility] [address] [place], [address] Creatinine [Mass/Vol] 0.55 mg/dL Low 0.70-1.20 [facility] Comment on above: Performed By: #### L 501.4021, L100.0100, L500.2500 ####[facility] [address] [place], [address] GAP 18 High 5-15 [facility] Comment on above: Performed By: #### L 501.4021, L100.0100, L500.2500 ####[facility] [address] [place], [address] GFR/1.73 sq M.predicted among non-blacks MDRD (S/P/Bld) [Vol rate/Area] 113 mL/min/{1.73_m2} Normal >60 [facility] Comment on above: Result Comment: mL/m in/1.73m2 CKD-EPI Creatinine Equation (2020) Performed By: #### L 501.4021, L100.0100, L500.2500 ####[facility] [address] [place], [address] Glucose [Mass/Vol] 131 mg/dL High 70-99 [facility] Comment on above: Performed By: #### L 501.4021, L100.0100, L500.2500 ####[facility] [address] [place], [address] Potassium [Moles/Vol] 2.9 mmol/L Low 3.3-5.1 [facility] Comment on above: Performed By: #### L 501.4021, L100.0100, L500.2500 ####[facility] [address] [place], [address] Sodium [Moles/Vol] 139 mmol/L Normal 133-145 [facility] Comment on above: Performed By: #### L 501.4021, L100.0100, L500.2500 ####[facility] [address] [place], [address] Urea nitrogen [Mass/Vol] 5 mg/dL Normal 4-19 [facility] Comment on above: Performed By: #### L 501.4021, L100.0100, L500.2500 ####[facility] [address] [place], [address] Basophil percentageOrdered B y: ED PROVIDER on 04-04-2025 Basophils/100 WBC (Bld) 0.7 % 0-1 [facility] Bilirubin directOrdered By: Imani Knight on 04-04-2025 Bilirubin.direct [Mass/Vol] 0.67 mg/dL High 0.00-0.30 [facility] Bilirubin, totalOrdered By: Imani Knight on 04-04-2025 Bilirubin [Mass/Vol] 1.26 mg/dL 0.00-1.30 [facility] CBC W/Diff, Automatedon Absolute Lymph 1.23 X10 3/uL Normal 0.83-4.51 [facility] Comment on above: Performed By: #### L 501.4021, L100.0100, L500.2500 ####[facility] [address] [place], [address] Absolute Neut 6.8 X10 3/uL Normal 2.0-7.7 [facility] Comment on above: Performed By: #### L 501.4021, L100.0100, L500.2500 ####[facility] [address] [place], [address] Basophils/100 WBC (Bld) 0.7 % Normal 0-1 [facility] Comment on above: Performed By: #### L 501.4021, L100.0100, L500.2500 ####[facility] [address] [place], [address] Eosinophils/100 WBC (Bld) 0.2 % Normal 0-5 [facility] Comment on above: Performed By: #### L 501.4021, L100.0100, L500.2500 ####[facility] [address] [place], [address] Erythrocyte distribution width (RBC) [Ratio] 13.5 % Normal 11.6-14.6 [facility] Comment on above: Performed By: #### L 501.4021, L100.0100, L500.2500 ####[facility] [address] [place], [address] Hematocrit (Bld) [Volume fraction] 40.3 % Normal 37-47 [facility] Comment on above: Performed By: #### L 501.4021, L100.0100, L500.2500 ####[facility] [address] [place], [address] Hemoglobin (Bld) [Mass/Vol] 14.3 g/dL Normal 12.0-15.0 [facility] Comment on above: Performed By: #### L 501.4021, L100.0100, L500.2500 ####[facility] [address] [place], [address] IG% 0.300 Normal 0.0-0.9 [facility] Comment on above: Result Comment: IG% - Immature Granulocytes (promyelocytes, myelocytes andmetamyelocytes) > 1% indicates that a LEFT SHIFT is Present. Performed By: #### L 501.4021, L100.0100, L500.2500 ####[facility] [address] [place], [address] Lymphocytes/100 WBC (Bld) 14.0 % Low 19-41 [facility] Comment on above: Performed By: #### L 501.4021, L100.0100, L500.2500 ####[facility] [address] [place], [address] MCH (RBC) [Entitic mass] 35.4 pg High 27.0-32.0 [facility] Comment on above: Performed By: #### L 501.4021, L100.0100, L500.2500 ####[facility] [address] [place], [address] MCHC (RBC) [Mass/Vol] 35.5 g/dL Normal 32-36 [facility] Comment on above: Performed By: #### L 501.4021, L100.0100, L500.2500 ####[facility] [address] [place], [address] MCV (RBC) [Entitic vol] 99.8 fL High 81-99 [facility] Comment on above: Performed By: #### L 501.4021, L100.0100, L500.2500 ####[facility] [address] [place], [address] Monocytes/100 WBC (Bld) 7.8 % Normal 0-10 [facility] Comment on above: Performed By: #### L 501.4021, L100.0100, L500.2500 ####[facility] [address] [place], [address] Neutrophils/100 WBC (Bld) 77.0 % High 47-70 [facility] Comment on above: Performed By: #### L 501.4021, L100.0100, L500.2500 ####[facility] [address] [place], [address] Nucleated RBC (Bld) [#/Vol] 0.2 10*3/uL Normal 0-5 [facility] Comment on above: Performed By: #### L 501.4021, L100.0100, L500.2500 ####[facility] [address] [place], [address] Platelet mean volume (Bld) [Entitic vol] 10.0 fL Normal 6.2-12.0 [facility] Comment on above: Performed By: #### L 501.4021, L100.0100, L500.2500 ####[facility] [address] [place], [address] Platelets (Bld) [#/Vol] 186 10*3/uL Normal 150-450 [facility] Comment on above: Performed By: #### L 501.4021, L100.0100, L500.2500 ####[facility] [address] [place], [address] RBC (Bld) [#/Vol] 4.04 10*6/uL Low 4.2-5.4 [facility] Comment on above: Performed By: #### L 501.4021, L100.0100, L500.2500 ####[facility] [address] [place], [address] RDW SD 50.3 fl High 35.1-43.9 [facility] Comment on above: Performed By: #### L 501.4021, L100.0100, L500.2500 ####[facility] [address] [place], [address] WBC (Bld) [#/Vol] 8.8 10*3/uL Normal 4.4-11.0 [facility] Comment on above: Performed By: #### L 501.4021, L100.0100, L500.2500 ####[facility] [address] [place], [address] Carbon dioxide, total [Moles /volume] in Central venous bloodOrdered By: Imani Knight on 04-04-2025 CO2 [Moles/Vol] 27.3 mmol/L 21.0-32.0 [facility] Chest 1 View (Portable)on Chest 1 View (Portable) Normal [facility] Chloride assayOrdered By: Nash Knight on 04-04-2025 Chloride [Moles/Vol] 94 mmol/L Low 98-108 [facility] Emergency Department Summary on 04-04-2025 Emergency Department Summary Normal [facility] Eosinophil percentageOrdered By: ED PROVIDER on 04-04-2025 Eosinophils/100 WBC (Bld) 0.2 % 0-5 [facility] Erythrocyte distribution wid th ratioOrdered By: ED PROVIDER on 04-04-2025 Erythrocyte distribution width (RBC) [Ratio] 13.5 % 11.6-14.6 [facility] Erythrocyte distribution wid th standard deviationOrdered By: ED PROVIDER on 04-04-2025 Erythrocyte distribution width (RBC) [Ratio] 50.3 fl High 35.1-43.9 [facility] Glomerular filtration rate ( GFR) estimation/1.73 sq m using serum, plasma, or whole bOrdered By: Imani Knight on 04-04-2025 GFR/1.73 sq M.predicted among non-blacks MDRD (S/P/Bld) [Vol rate/Area] 113 mL/min/{1.73_m2} >60 [facility] Comment on above: mL/min/1.73m2 CKD-EP I Creatinine Equation (2020) Hematocrit Auto (Bld) [Volum e fraction]Ordered By: ED PROVIDER on 04-04-2025 Hematocrit (Bld) [Volume fraction] 40.3 % 37-47 [facility] Hemoglobin measurementOrdere d By: ED PROVIDER on 04-04-2025 Hemoglobin (Bld) [Mass/Vol] 14.3 g/dL 12.0-15.0 [facility] Immature granulocytes/100 WB C Auto (Bld)Ordered By: ED PROVIDER on 04-04-2025 Immature granulocytes/100 WBC (Bld) 0.300 % 0.0-0.9 [facility] Comment on above: IG% - Immature Granu locytes (promyelocytes, myelocytes and metamyelocytes) > 1% indicates that a LEFT SHIFT is Present. L499.0042on 04-04-2025 Trop T High Sen < 6 Normal <=14 [facility] Comment on above: Performed By: #### L 499.0042 ####[facility] [address] [place], [address] L499.0043on 04-04-2025 Trop T High Sen Normal <=14 [facility] Comment on above: Result Comment: CHUY ENT DISCHARGED Performed By: #### L 499.0043 ####[facility] [address] [place], [address] L501.4021on 04-04-2025 Trop T High Sen < 6 Normal <=14 [facility] Comment on above: Performed By: #### L 501.4021, L100.0100, L500.2500 ####[facility] [address] [place], [address] Laboratory - Chemistry and C hemistry - challengeOrdered By: Imani Knight on 04-04-2025 AST [Catalytic activity/Vol] 75 U/L High <32 [facility] Lipaseon 04-04-2025 Lipase [Catalytic activity/Vol] 26 U/L Normal 13-75 [facility] Comment on above: Result Comment: Plea se note:LIPASE revised reference range effective 23.New Lipase methodology. Expected to produce lower valuesthan the previous assay method.NEW Reference Range: 13 - 75 U/L Performed By: #### L 500.3400, L501.5200, L501.2450 ####[facility] [address] [place], [address] Lipase measurementOrdered By : Imani Knight on 04-04-2025 Lipase [Catalytic activity/Vol] 26 U/L 13-75 [facility] Comment on above: Please note:LIPASE r evised reference range effective 23. New Lipase methodology. Expected to produce lower values than the previous assay method. NEW Reference Range: 13 - 75 U/L Liver Profileon 04-04-2025 Albumin [Mass/Vol] 4.1 g/dL Normal 3.5-5.0 [facility] Comment on above: Performed By: #### L 500.3400, L501.5200, L501.2450 ####[facility] [address] [place], [address] ALK PHOS 91 U/L Normal 35-104 [facility] Comment on above: Performed By: #### L 500.3400, L501.5200, L501.2450 ####[facility] [address] [place], [address] ALT [Catalytic activity/Vol] 44 U/L High <=34 [facility] Comment on above: Performed By: #### L 500.3400, L501.5200, L501.2450 ####[facility] [address] [place], [address] AST [Catalytic activity/Vol] 75 U/L High <=31 [facility] Comment on above: Performed By: #### L 500.3400, L501.5200, L501.2450 ####[facility] [address] [place], [address] Bilirubin [Mass/Vol] 1.26 mg/dL Normal 0.00-1.30 [facility] Comment on above: Performed By: #### L 500.3400, L501.5200, L501.2450 ####[facility] [address] [place], [address] Bilirubin.direct [Mass/Vol] 0.67 mg/dL High 0.00-0.30 [facility] Comment on above: Performed By: #### L 500.3400, L501.5200, L501.2450 ####[facility] [address] [place], [address] Globulin (S) [Mass/Vol] 3.3 g/dL Normal 2.2-4.2 [facility] Comment on above: Performed By: #### L 500.3400, L501.5200, L501.2450 ####[facility] [address] [place], [address] T PROT 7.3 g/dL Normal 5.9-8.4 [facility] Comment on above: Performed By: #### L 500.3400, L501.5200, L501.2450 ####[facility] [address] [place], [address] MCV (mean corpuscular volume ) determinationOrdered By: ED PROVIDER on 04-04-2025 MCV (RBC) [Entitic vol] 99.8 fL High 81-99 [facility] Magnesiumon 04-04-2025 Magnesium [Mass/Vol] 0.6 mg/dL Invalid Interpretation Code 1.5-2.2 [facility] Comment on above: Result Comment: Crit ical Result(s) Called at: 04/04/2025-12: by: Francesco to Meredith Fairchild.??Results read back by same. Performed By: #### L 500.3400, L501.5200, L501.2450 ####[facility] [address] [place], [address] Magnesium measurement (mass/ volume)Ordered By: Imani Knight on 04-04-2025 Magnesium (Unsp spec) [Mass/Vol] 0.6 mg/dL Low 1.5-2.2 [facility] Comment on above: Critical Result(s) C alled at: 04/04/2025-: by: Ru Fairchild. Results read back by same. Mean corpuscular hemoglobin (MCH) determinationOrdered By: ED PROVIDER on 04-04-2025 MCH (RBC) [Entitic mass] 35.4 pg High 27.0-32.0 [facility] Mean corpuscular hemoglobin concentration (MCHC) determinationOrdered By: ED PROVIDER on 04-04-2025 MCHC (RBC) [Mass/Vol] 35.5 g/dL 32-36 [facility] Mean platelet volume determi nationOrdered By: ED PROVIDER on 04-04-2025 Platelet mean volume (Bld) [Entitic vol] 10.0 fL 6.2-12.0 [facility] Monocyte percentageOrdered B y: ED PROVIDER on 04-04-2025 Monocytes/100 WBC (Bld) 7.8 % 0-10 [facility] Neutrophil percentageOrdered By: ED PROVIDER on 04-04-2025 Neutrophils/100 WBC (Bld) 77.0 % High 47-70 [facility] No Panel InformationOrdered By: Imani Knight on 04-04-2025 75 U/L High <32 [facility] Nucleated red blood cell per centageOrdered By: ED PROVIDER on 04-04-2025 Nucleated RBC/100 WBC (Bld) [Ratio] 0.2 % 0-5 [facility] Platelet countOrdered By: ED PROVIDER on 04-04-2025 Platelets (Bld) [#/Vol] 186 10*3/uL 150-450 [facility] Potassium measurement (mass/ volume)Ordered By: Imani Knight on 04-04-2025 Potassium (Unsp spec) [Mass/Vol] 2.9 mmol/L Low 3.3-5.1 [facility] RBC Auto (Bld) [#/Vol]Ordere d By: ED PROVIDER on 04-04-2025 RBC (Bld) [#/Vol] 4.04 10*6/uL Low 4.2-5.4 [facility] Serum creatinine measurement (mass/volume)Ordered By: Imani Knight on 04-04-2025 Creatinine [Mass/Vol] 0.55 mg/dL Low 0.70-1.20 [facility] Serum globulin measurementOr dered By: Imani Knight on 04-04-2025 Globulin (S) [Mass/Vol] 3.3 g/dL 2.2-4.2 [facility] Serum glucose measurement (m ass/volume)Ordered By: Imani Knight on 04-04-2025 Glucose [Mass/Vol] 131 mg/dL High 70-99 [facility] Serum or plasma alanine wilkerson otransferase (ALT) measurementOrdered By: Imani Knight on 04-04-2025 ALT [Catalytic activity/Vol] 44 U/L High <35 [facility] Serum or plasma albumin alphonso urement (mass/volume)Ordered By: Imani Knight on 04-04-2025 Albumin [Mass/Vol] 4.1 g/dL 3.5-5.0 [facility] Serum or plasma alkaline trinity sphatase measurementOrdered By: Imani Knight on 04-04-2025 ALP [Catalytic activity/Vol] 91 U/L 35-104 [facility] Serum or plasma calcium alphonso urement (mass/volume)Ordered By: Imani Knight on 04-04-2025 Calcium [Mass/Vol] 8.4 mg/dL 7.6-11.0 [facility] Serum or plasma urea nitroge n measurement (mass/volume)Ordered By: Imani Knight on 04-04-2025 Urea nitrogen [Mass/Vol] 5 mg/dL 4-19 [facility] Sodium levelOrdered By: Radha Knight on 04-04-2025 Sodium [Moles/Vol] 139 mmol/L 133-145 [facility] Total proteinOrdered By: Gwen Knight on 04-04-2025 Protein [Mass/Vol] 7.3 g/dL 5.9-8.4 [facility] Troponin T.cardiac [Mass/vol ume] in Serum or Plasma by High sensitivity methodOrdered By: Imani Knight on 04-04-2025 Troponin T.cardiac High sensitivity method [Mass/Vol] < 6 ng/L <14 [facility] Troponin T.cardiac High sensitivity method [Mass/Vol] < 6 ng/L <14 [facility] White blood cell (WBC) count Ordered By: ED PROVIDER on 04-04-2025 WBC (Bld) [#/Vol] 8.8 10*3/uL 4.4-11.0 [facility] 12 Lead EKGon 11-12-2024 12 Lead EKG Normal [facility] Basic Metabolic Profile (BMP )on 11-12-2024 BUN/CRE 23.8 RATIO High 10-20 [facility] Comment on above: Order Comment: 1Y Performed By: #### L 500.2500, L501.5425, L300.8000, L501.5200, L700.6800, L100.0100 ####[facility] [address] [place], [address] CA,Total 8.1 mg/dL Low 8.5-10.1 [facility] Comment on above: Order Comment: 1Y Performed By: #### L 500.2500, L501.5425, L300.8000, L501.5200, L700.6800, L100.0100 ####[facility] [address] [place], [address] Chloride [Moles/Vol] 99 mmol/L Normal 98-107 [facility] Comment on above: Order Comment: 1Y Performed By: #### L 500.2500, L501.5425, L300.8000, L501.5200, L700.6800, L100.0100 ####[facility] [address] [place], [address] CO2 [Moles/Vol] 27.0 mmol/L Normal 21.0-32.0 [facility] Comment on above: Order Comment: 1Y Performed By: #### L 500.2500, L501.5425, L300.8000, L501.5200, L700.6800, L100.0100 ####[facility] [address] [place], [address] Creatinine [Mass/Vol] 0.59 mg/dL Normal 0.55-1.02 [facility] Comment on above: Order Comment: 1Y Result Comment: The validity of the calculated GFR GFRAA in patients over70 years has not been determined. Clinical correlation isessential. Performed By: #### L 500.2500, L501.5425, L300.8000, L501.5200, L700.6800, L100.0100 ####[facility] [address] [place], [address] ECRCL 112.29 ml/min Normal [facility] Comment on above: Order Comment: 1Y Performed By: #### L 500.2500, L501.5425, L300.8000, L501.5200, L700.6800, L100.0100 ####[facility] [address] [place], [address] EST GFR - AA 140 mL/min Normal >60 [facility] Comment on above: Order Comment: 1Y Result Comment: Afri can Chadian GFR Calc Performed By: #### L 500.2500, L501.5425, L300.8000, L501.5200, L700.6800, L100.0100 ####[facility] [address] [place], [address] GAP 9 Normal 5-15 [facility] Comment on above: Order Comment: 1Y Performed By: #### L 500.2500, L501.5425, L300.8000, L501.5200, L700.6800, L100.0100 ####[facility] [address] [place], [address] GFR/1.73 sq M.predicted among non-blacks MDRD (S/P/Bld) [Vol rate/Area] 116 mL/min/{1.73_m2} Normal >60 [facility] Comment on above: Order Comment: 1Y Result Comment: Non- GFR Calc Performed By: #### L 500.2500, L501.5425, L300.8000, L501.5200, L700.6800, L100.0100 ####[facility] [address] [place], [address] Glucose [Mass/Vol] 131 mg/dL High 74-106 [facility] Comment on above: Order Comment: 1Y Result Comment: Fast ing Glucose result greater than or equal to 126 mg/dLsuggests DIABETES MELLITUS per A.D.A. criteria. Performed By: #### L 500.2500, L501.5425, L300.8000, L501.5200, L700.6800, L100.0100 ####[facility] [address] [place], [address] Potassium [Moles/Vol] 3.7 mmol/L Normal 3.5-5.1 [facility] Comment on above: Order Comment: 1Y Performed By: #### L 500.2500, L501.5425, L300.8000, L501.5200, L700.6800, L100.0100 ####[facility] [address] [place], [address] Sodium [Moles/Vol] 135 mmol/L Low 136-145 [facility] Comment on above: Order Comment: 1Y Performed By: #### L 500.2500, L501.5425, L300.8000, L501.5200, L700.6800, L100.0100 ####[facility] [address] [place], [address] Urea nitrogen [Mass/Vol] 14 mg/dL Normal 7-18 [facility] Comment on above: Order Comment: 1Y Performed By: #### L 500.2500, L501.5425, L300.8000, L501.5200, L700.6800, L100.0100 ####[facility] [address] [place], [address] CBC W/Diff, Automatedon 12-12 03-2023 Absolute Lymph 1.29 X10 3/uL Normal 0.83-4.51 [facility] Comment on above: Performed By: #### L 500.2500, L501.5425, L300.8000, L501.5200, L700.6800, L100.0100 ####[facility] [address] [place], [address] Absolute Neut 6.5 X10 3/uL Normal 2.0-7.7 [facility] Comment on above: Performed By: #### L 500.2500, L501.5425, L300.8000, L501.5200, L700.6800, L100.0100 ####[facility] [address] [place], [address] Basophils/100 WBC (Bld) 0.5 % Normal 0-1 [facility] Comment on above: Performed By: #### L 500.2500, L501.5425, L300.8000, L501.5200, L700.6800, L100.0100 ####[facility] [address] [place], [address] Eosinophils/100 WBC (Bld) 1.2 % Normal 0-5 [facility] Comment on above: Performed By: #### L 500.2500, L501.5425, L300.8000, L501.5200, L700.6800, L100.0100 ####[facility] [address] [place], [address] Erythrocyte distribution width (RBC) [Ratio] 13.1 % Normal 11.6-14.6 [facility] Comment on above: Performed By: #### L 500.2500, L501.5425, L300.8000, L501.5200, L700.6800, L100.0100 ####[facility] [address] [place], [address] Hematocrit (Bld) [Volume fraction] 37.7 % Normal 37-47 [facility] Comment on above: Performed By: #### L 500.2500, L501.5425, L300.8000, L501.5200, L700.6800, L100.0100 ####[facility] [address] [place], [address] Hemoglobin (Bld) [Mass/Vol] 12.9 g/dL Normal 12.0-15.0 [facility] Comment on above: Performed By: #### L 500.2500, L501.5425, L300.8000, L501.5200, L700.6800, L100.0100 ####[facility] [address] [place], [address] IG% 0.200 Normal 0.0-0.9 [facility] Comment on above: Result Comment: IG% - Immature Granulocytes (promyelocytes, myelocytes andmetamyelocytes) > 1% indicates that a LEFT SHIFT is Present. Performed By: #### L 500.2500, L501.5425, L300.8000, L501.5200, L700.6800, L100.0100 ####[facility] [address] [place], [address] Lymphocytes/100 WBC (Bld) 15.1 % Low 19-41 [facility] Comment on above: Performed By: #### L 500.2500, L501.5425, L300.8000, L501.5200, L700.6800, L100.0100 ####[facility] [address] [place], [address] MCH (RBC) [Entitic mass] 33.7 pg High 27.0-32.0 [facility] Comment on above: Performed By: #### L 500.2500, L501.5425, L300.8000, L501.5200, L700.6800, L100.0100 ####[facility] [address] [place], [address] MCHC (RBC) [Mass/Vol] 34.2 g/dL Normal 32-36 [facility] Comment on above: Performed By: #### L 500.2500, L501.5425, L300.8000, L501.5200, L700.6800, L100.0100 ####[facility] [address] [place], [address] MCV (RBC) [Entitic vol] 98.4 fL Normal 81-99 [facility] Comment on above: Performed By: #### L 500.2500, L501.5425, L300.8000, L501.5200, L700.6800, L100.0100 ####[facility] [address] [place], [address] Monocytes/100 WBC (Bld) 6.9 % Normal 0-10 [facility] Comment on above: Performed By: #### L 500.2500, L501.5425, L300.8000, L501.5200, L700.6800, L100.0100 ####[facility] [address] [place], [address] Neutrophils/100 WBC (Bld) 76.1 % High 47-70 [facility] Comment on above: Performed By: #### L 500.2500, L501.5425, L300.8000, L501.5200, L700.6800, L100.0100 ####[facility] [address] [place], [address] Nucleated RBC (Bld) [#/Vol] 0 10*3/uL Normal 0-5 [facility] Comment on above: Performed By: #### L 500.2500, L501.5425, L300.8000, L501.5200, L700.6800, L100.0100 ####[facility] [address] [place], [address] Platelet mean volume (Bld) [Entitic vol] 9.2 fL Normal 6.2-12.0 [facility] Comment on above: Performed By: #### L 500.2500, L501.5425, L300.8000, L501.5200, L700.6800, L100.0100 ####[facility] [address] [place], [address] Platelets (Bld) [#/Vol] 211 10*3/uL Normal 150-450 [facility] Comment on above: Performed By: #### L 500.2500, L501.5425, L300.8000, L501.5200, L700.6800, L100.0100 ####[facility] [address] [place], [address] RBC (Bld) [#/Vol] 3.83 10*6/uL Low 4.2-5.4 [facility] Comment on above: Performed By: #### L 500.2500, L501.5425, L300.8000, L501.5200, L700.6800, L100.0100 ####[facility] [address] [place], [place], [id number](124) RDW SD 46.6 fl High 35.1-43.9 [facility] Comment on above: Performed By: #### L 500.2500, L501.5425, L300.8000, L501.5200, L700.6800, L100.0100 ####[facility] [address] [place], [address] WBC (Bld) [#/Vol] 8.6 10*3/uL Normal 4.4-11.0 [facility] Comment on above: Performed By: #### L 500.2500, L501.5425, L300.8000, L501.5200, L700.6800, L100.0100 ####[facility] [address] [place], [place], [id number] CTA Chest W/WO Contraston CTA Chest W/WO Contrast Normal [facility] Chest 1 View (Portable)on Chest 1 View (Portable) Normal [facility] D-Dimer Quantitative (DVT/PE )on 11-12-2024 D-DIMER QUANT 0.74 FEU/ug/m Invalid Interpretation Code 0.27-0.49 [facility] Comment on above: Order Comment: CRITI FLORECITA VALUE CALLED TO ugrkliwcigvqhxc60/15/24 Renee Queen.RESULTS READ BACK BY same. Result Comment: D-Di clive ELEVATED (>0.49): Additional studies and clinicalassessments are indicated to conclude diagnosis of:Deep Vein Thrombosis (DVT) or Pulmonary Embolism (PE) Performed By: #### L 500.2500, L501.5425, L300.8000, L501.5200, L700.6800, L100.0100 ####[facility] [address] [place], [place], [id number] Emergency Department Summary on 11-12-2024 Emergency Department Summary Normal [facility] L501.4020on 11-12-2024 TROPONIN-I HS 6 pg/mL Normal 3.0-54.0 [facility] Comment on above: Result Comment: Plea se Note: New Test Units and Gender Specific Reference Ranges. For more information see Policy Stat Procedure Aldrich High Sensitivity Troponin (TNIH) and attachments. Performed By: #### L 501.4020 ####[facility] [address] [place], [place], [id number] L501.5425on 11-12-2024 TROPONIN-I HS 6 pg/mL Normal 3.0-54.0 [facility] Comment on above: Order Comment: 1Y Result Comment: Plea se Note: New Test Units and Gender Specific Reference Ranges. For more information see Policy Stat Procedure [employer]rich High Sensitivity Troponin (TNIH) and attachments. Performed By: #### L 500.2500, L501.5425, L300.8000, L501.5200, L700.6800, L100.0100 ####[facility] [address] [place], [address] Magnesiumon 11-12-2024 Magnesium [Mass/Vol] 1.1 mg/dL Low 1.6-2.6 [facility] Comment on above: Order Comment: 1Y Performed By: #### L 500.2500, L501.5425, L300.8000, L501.5200, L700.6800, L100.0100 ####[facility] [address] [place], [place], [id number] ,Serum,hCG Quali.on 11-12-2024 HCG, SERUM QUAL Negative Normal [facility] Comment on above: Performed By: #### L 500.2500, L501.5425, L300.8000, L501.5200, L700.6800, L100.0100 ####[facility] [address] [place], [address] Orthopedic Visit Reporton Orthopedic Visit Report Normal [facility] Spine Lumbar (Routine)on Spine Lumbar (Routine) Normal [facility] L/S Spine Min 4 Viewson 08-01 L/S Spine Min 4 Views Normal [facility] Orthopedic Visit Reporton Orthopedic Visit Report Normal [facility] CNOVon 04-22-2024 CNOV Office Visit (UCWSTR ) JOSEPH RINCON ([id number]) 1975 F NFR Date Time Provider Department 04/22/24 1:30 PM ARETHA [facility] During your visit today, we recorded the following information about you: Temperature Pulse Respiration Blood pressure 97.4 degrees 115/minute 20/minute 120/84 Weight 75.8 kg Aretha Schofield APRN.ADMITTING COORDINATOR 04/22/2024 2:02 PM Signed Subjective Sinus Problem [...] since qu (more content not included)... Normal [facility] Basophil percentageOrdered B y: Milana Jose on 03-21-2024 Bilirubin [Mass/Vol] 0.60 mg/dL 0.20-1.00 [facility] Comment on above: For patients on eltr ombopag therapy, use of Dimension Aldrich TBIL is not recommended. Chloride [Moles/Vol] 105 mmol/L 98-[address] [facility] Glucose [Mass/Vol] 121 mg/dL 74-106 [facility] Comment on above: Fasting Glucose resu lt from 100 to 125 mg/dL suggests IMPAIRED HOMEOSTASIS per A.D.A. criteria. Potassium [Moles/Vol] 4.0 mmol/L 3.5-5.1 [facility] Protein [Mass/Vol] 7.6 g/dL 6.4-8.2 [facility] Sodium [Moles/Vol] 136 mmol/L 136-145 [facility] Laboratory - Chemistry and C hemistry - challengeOrdered By: Milana Garcia on 03-21-2024 Albumin/Globulin [Mass ratio] 0.9 {ratio} 0.9-2.4 [facility] ALP [Catalytic activity/Vol] 67 U/L 45-117 [facility] ALT [Catalytic activity/Vol] 27 U/L 13-56 [facility] CO2 [Moles/Vol] 24.0 mmol/L 21.0-32.0 [facility] Globulin (S) [Mass/Vol] 4.0 g/dL 2.2-4.2 [facility] Magnesium [Mass/Vol] 1.7 mg/dL 1.6-2.6 [facility] Sodium (U) [Moles/Vol] 104 mmol/L Not Establ. [facility] Urea nitrogen/Creatinine [Mass ratio] 21.6 mg/mg 10-20 [facility] No Panel InformationOrdered By: Milana Garcia on 03-21-2024 Estimated GFR (MDRD) Amer 108 mL/min >60 [facility] Comment on above: GFR Calc Estimated GFR (MDRD) Non-Af Amer 89 mL/min >60 [facility] Comment on above: Non- GFR Calc Serum or plasma calcium alphonso urement (mass/volume)Ordered By: Milana Garcia on 03-21-2024 Calcium [Mass/Vol] 8.8 mg/dL 8.5-10.1 [facility] Serum or plasma creatinine m easurement (mass/volume)Ordered By: Milana Garcia on 03-21-2024 Creatinine [Mass/Vol] 0.74 mg/dL 0.55-1.02 [facility] Comment on above: The validity of the calculated GFR & GFRAA in patients over 70 years has not been determined. Clinical correlation is essential. Serum or plasma thyroid stim ulating hormone (TSH) measurement (units/volume)Ordered By: Milana Garcia on 03-21-2024 TSH Qn 1.06 uIU/mL 0.358-3.74 [facility] Serum or plasma urea nitroge n measurement (mass/volume)Ordered By: Milana Garcia on 03-21-2024 Urea nitrogen [Mass/Vol] 16 mg/dL 7-18 [facility] Thin prep Papanicolaou smear with manual screeningOrdered By: Milana Garcia on 03-21-2024 Thin prep Papanicolaou smear with manual screening 3.6 g/dL 3.2-5.0 [facility] Thin prep Papanicolaou smear with manual screening 22 U/L 15-37 [facility] Thin prep Papanicolaou smear with manual screening 7 5-15 [facility] Thin prep Papanicolaou smear with manual screening 286 mOsm/KG 275-295 [facility] Urine osmolality measurement Ordered By: Milana Garcia on 03-21-2024 Osmolality (U) [Osmolality] 535 mOsm/KG >50 [facility] Comment on above: Normal Urine Referen ce Ranges Random: 50 - 1200 mOsm/kg H20 depending on fluid intake Random: >850 mOsm/kg after 12 hour fluid restriction 24 hour: ~300 - 900 mOsm/kg H2O Absolute lymphocyte countOrd ered By: Caprice Jerry on 01-24-2024 Lymphocytes Auto (Unsp spec) [#/Vol] 3.36 10*3/uL 0.83-4.51 [facility] Automated lymphocyte count a s percentage of total leukocytesOrdered By: Caprice Jerry on 01-24-2024 Lymphocytes/100 WBC Auto (Unsp spec) 33.3 % 19-41 [facility] Basophil percentageOrdered B y: Caprice Jerry on 01-24-2024 Basophils/100 WBC (Bld) 0.8 % 0-1 [facility] Chloride [Moles/Vol] 104 mmol/L 98-107 [facility] Eosinophils/100 WBC (Bld) 1.6 % 0-5 [facility] Glucose [Mass/Vol] 110 mg/dL 74-106 [facility] Comment on above: Fasting Glucose resu lt from 100 to 125 mg/dL suggests IMPAIRED HOMEOSTASIS per A.D.A. criteria. Hemoglobin (Bld) [Mass/Vol] 12.5 g/dL 12.0-15.0 [facility] Monocytes/100 WBC (Bld) 9.1 % 0-10 [facility] Neutrophils (Bld) [#/Vol] 5.5 10*3/uL 2.0-7.7 [facility] Neutrophils/100 WBC (Bld) 54.8 % 47-70 [facility] Potassium [Moles/Vol] 3.9 mmol/L 3.5-5.1 [facility] Sodium [Moles/Vol] 138 mmol/L 136-145 [facility] WBC (Bld) [#/Vol] 10.1 10*3/uL 4.4-11.0 [facility] Basophil percentageOrdered B y: Ainsley Bean on 01-24-2024 Bilirubin [Mass/Vol] 0.30 mg/dL 0.20-1.00 [facility] Comment on above: For patients on eltr ombopag therapy, use of Dimension Aldrich TBIL is not recommended. Protein [Mass/Vol] 7.1 g/dL 6.4-8.2 [facility] Determination of erythrocyte mean corpuscular volume (MCV)Ordered By: Caprice Jerry on 01-24-2024 MCV (RBC) [Entitic vol] 95.9 fL 81-99 [facility] Direct bilirubinOrdered By: Ainsley Bean on 01-24-2024 Bilirubin.direct [Mass/Vol] 0.12 mg/dL 0.00-0.30 [facility] Erythrocyte distribution wid th ratioOrdered By: Caprice Jerry on 01-24-2024 Erythrocyte distribution width (RBC) [Ratio] 11.9 % 11.6-14.6 [facility] Erythrocyte distribution wid th standard deviationOrdered By: Caprice Jerry on 01-24-2024 Erythrocyte distribution width (RBC) [Entitic vol] 41.5 fL 35.1-43.9 [facility] Hematocrit Auto (Bld) [Volum e fraction]Ordered By: Caprice Jerry on 01-24-2024 Hematocrit (Bld) [Volume fraction] 37.4 % 37-47 [facility] Immature granulocytes/100 WB C Auto (Bld)Ordered By: Caprice Jerry on 01-24-2024 Immature granulocytes/100 WBC (Bld) 0.400 % 0.0-0.9 [facility] Comment on above: IG% - Immature Granu locytes (promyelocytes, myelocytes and metamyelocytes) > 1% indicates that a LEFT SHIFT is Present. Laboratory - Chemistry and C hemistry - challengeOrdered By: Ainsley Bean on 01-24-2024 ALP [Catalytic activity/Vol] 69 U/L 45-117 [facility] ALT [Catalytic activity/Vol] 23 U/L 13-56 [facility] Globulin (S) [Mass/Vol] 3.7 g/dL 2.2-4.2 [facility] Lipase [Catalytic activity/Vol] 88 U/L 13-75 [facility] Comment on above: Please note:LIPASE r evised reference range effective 23. New Lipase methodology. Expected to produce lower values than the previous assay method. NEW Reference Range: 13 - 75 U/L Laboratory - Chemistry and C hemistry - challengeOrdered By: Caprice Jerry on 01-24-2024 CO2 [Moles/Vol] 29.0 mmol/L 21.0-32.0 [facility] Urea nitrogen/Creatinine [Mass ratio] 21.7 mg/mg 10-20 [facility] Laboratory - Hematology and Cell countsOrdered By: Caprice Jerry on 01-24-2024 MCH (RBC) [Entitic mass] 32.1 pg 27.0-32.0 [facility] MCHC (RBC) [Mass/Vol] 33.4 g/dL 32-36 [facility] Nucleated RBC/100 WBC (Bld) [Ratio] 0 % 0-5 [facility] Platelet mean volume (Bld) [Entitic vol] 9.6 fL 6.2-12.0 [facility] Platelets (Bld) [#/Vol] 264 10*3/uL 150-450 [facility] No Panel InformationOrdered By: Ainsley Bean on 01-24-2024 Troponin I High Sensitivity 4 pg/mL 3.0-54.0 [facility] Comment on above: Please Note: New Miri t Units and Gender Specific Reference Ranges. For more information see Policy Stat Procedure [employer] High Sensitivity Troponin (TNIH) and attachments. No Panel InformationOrdered By: Caprice Jerry on 01-24-2024 Estimated GFR (MDRD) Amer 108 mL/min >60 [facility] Comment on above: GFR Calc Estimated GFR (MDRD) Non-Af Amer 90 mL/min >60 [facility] Comment on above: Non- GFR Calc RBC Auto (Bld) [#/Vol]Ordere d By: Caprice Jerry on 01-24-2024 RBC (Bld) [#/Vol] 3.90 10*6/uL 4.2-5.4 [facility] Serum or plasma calcium alphonso urement (mass/volume)Ordered By: Caprice Jerry on 01-24-2024 Calcium [Mass/Vol] 10.1 mg/dL 8.5-10.1 [facility] Serum or plasma creatinine m easurement (mass/volume)Ordered By: Caprice Jerry on 01-24-2024 Creatinine [Mass/Vol] 0.74 mg/dL 0.55-1.02 [facility] Comment on above: The validity of the calculated GFR & GFRAA in patients over 70 years has not been determined. Clinical correlation is essential. Serum or plasma urea nitroge n measurement (mass/volume)Ordered By: Caprice Jerry on 01-24-2024 Urea nitrogen [Mass/Vol] 16 mg/dL 7-18 [facility] Thin prep Papanicolaou smear with manual screeningOrdered By: Ainsley Bean on 01-24-2024 Thin prep Papanicolaou smear with manual screening 3.4 g/dL 3.2-5.0 [facility] Thin prep Papanicolaou smear with manual screening 25 U/L 15-37 [facility] Comment on above: Slight Hemolysis, Re sult may be falsely increased. Thin prep Papanicolaou smear with manual screeningOrdered By: Caprice Jerry on 01-24-2024 Thin prep Papanicolaou smear with manual screening 5 5-15 [facility] Absolute lymphocyte countOrd ered By: Caprice Jerry on 10-10-2023 Lymphocytes Auto (Unsp spec) [#/Vol] 0.98 10*3/uL 0.83-4.51 [facility] Basophil percentageOrdered B y: Caprice Jerry on 10-10-2023 Basophils/100 WBC (Bld) 0.3 % 0-1 [facility] Bilirubin [Mass/Vol] 1.00 mg/dL 0.20-1.00 [facility] Comment on above: For patients on eltr ombopag therapy, use of Dimension [employer] TBIL is not recommended. Chloride [Moles/Vol] 103 mmol/L 98-107 [facility] Eosinophils/100 WBC (Bld) 0.2 % 0-5 [facility] Glucose [Mass/Vol] 175 mg/dL 74-106 [facility] Comment on above: Fasting Glucose resu lt greater than or equal to 126 mg/dL suggests DIABETES MELLITUS per A.D.A. criteria. Neutrophils (Bld) [#/Vol] 7.6 10*3/uL 2.0-7.7 [facility] Neutrophils/100 WBC (Bld) 81.6 % 47-70 [facility] Potassium [Moles/Vol] 3.9 mmol/L 3.5-5.1 [facility] Protein [Mass/Vol] 7.3 g/dL 6.4-8.2 [facility] Sodium [Moles/Vol] 133 mmol/L 136-145 [facility] WBC (Bld) [#/Vol] 9.3 10*3/uL 4.4-11.0 [facility] Blood erythrocytes count (nu mber/volume)Ordered By: Caprice Jerry on 10-10-2023 RBC (Bld) [#/Vol] 4.14 10*6/uL 4.2-5.4 [facility] Blood hemoglobin measurement (mass/volume)Ordered By: Caprice Jerry on 10-10-2023 Hemoglobin (Bld) [Mass/Vol] 13.5 g/dL 12.0-15.0 [facility] Blood lymphocytes/100 leukoc ytesOrdered By: Caprice Jerry on 10-10-2023 Lymphocytes/100 WBC (Bld) 10.6 % 19-41 [facility] Blood monocytes/100 leukocyt esOrdered By: Caprice Jerry on 10-10-2023 Monocytes/100 WBC (Bld) 7.0 % 0-10 [facility] Blood platelet mean volumeOr dered By: Caprice Jerry on 10-10-2023 Platelet mean volume (Bld) [Entitic vol] 9.7 fL 6.2-12.0 [facility] Determination of erythrocyte mean corpuscular volume (MCV)Ordered By: Caprice Jerry on 10-10-2023 MCV (RBC) [Entitic vol] 98.3 fL 81-99 [facility] Direct bilirubinOrdered By: Caprice Jerry on 10-10-2023 Bilirubin.direct [Mass/Vol] 0.30 mg/dL 0.00-0.30 [facility] Hematocrit Auto (Bld) [Volum e fraction]Ordered By: Caprice Jerry on 10-10-2023 Hematocrit (Bld) [Volume fraction] 40.7 % 37-47 [facility] Influenza virus A and B and SARS-CoV-2 (COVID-19) Ag panel - Upper respiratory specimOrdered By: Caprice Jerry on 10-10-2023 SARS-CoV-2 (COVID-19) RNA ALLEY+probe Ql (Resp) [facility] Laboratory - Chemistry and C hemistry - challengeOrdered By: Caprice Jerry on 10-10-2023 ALP [Catalytic activity/Vol] 97 U/L 45-117 [facility] ALT [Catalytic activity/Vol] 54 U/L 13-56 [facility] CO2 [Moles/Vol] 22.0 mmol/L 21.0-32.0 [facility] Globulin (S) [Mass/Vol] 3.8 g/dL 2.2-4.2 [facility] Lipase [Catalytic activity/Vol] 45 U/L 13-75 [facility] Comment on above: Please note:LIPASE r evised reference range effective 23. New Lipase methodology. Expected to produce lower values than the previous assay method. NEW Reference Range: 13 - 75 U/L Urea nitrogen/Creatinine [Mass ratio] 8.9 mg/mg 10-20 [facility] Laboratory - Hematology and Cell countsOrdered By: Caprice Jerry on 10-10-2023 Erythrocyte distribution width (RBC) [Entitic vol] 44.4 fL 35.1-43.9 [facility] Erythrocyte distribution width (RBC) [Ratio] 12.4 % 11.6-14.6 [facility] Immature granulocytes/100 WBC (Bld) 0.300 % 0.0-0.9 [facility] Comment on above: IG% - Immature Granu locytes (promyelocytes, myelocytes and metamyelocytes) > 1% indicates that a LEFT SHIFT is Present. MCH (RBC) [Entitic mass] 32.6 pg 27.0-32.0 [facility] Nucleated RBC/100 WBC (Bld) [Ratio] 0 % 0-5 [facility] MCHC Auto (RBC) [Mass/Vol]Or dered By: Caprice Jerry on 10-10-2023 MCHC (RBC) [Mass/Vol] 33.2 g/dL 32-36 [facility] No Panel InformationOrdered By: Caprice Jerry on 10-10-2023 D-Dimer Quantitative (PE/DVT) 0.45 FEU/ug/m 0.27-0.49 [facility] Comment on above: NORMAL D-Dimer level (<0.50) indicates no DVT or PE. Estimated Creatinine Clearance Calc 31.78 ml/min [facility] Estimated GFR (MDRD) Amer 36 mL/min >60 [facility] Comment on above: GFR Calc Estimated GFR (MDRD) Non-Af Amer 30 mL/min >60 [facility] Comment on above: Non- GFR Calc Troponin I High Sensitivity 12 pg/mL 3.0-54.0 [facility] Comment on above: Please Note: New Miri t Units and Gender Specific Reference Ranges. For more information see Policy Stat Procedure [employer] High Sensitivity Troponin (TNIH) and attachments. Platelets bldOrdered By: Leona Jerry on 10-10-2023 Platelets (Bld) [#/Vol] 255 10*3/uL 150-450 [facility] Serum or plasma albumin alphonso urement (mass/volume)Ordered By: Caprice Jerry on 10-10-2023 Albumin [Mass/Vol] 3.5 g/dL 3.2-5.0 [facility] Serum or plasma calcium alphonso urement (mass/volume)Ordered By: Caprice Jerry on 10-10-2023 Calcium [Mass/Vol] 8.1 mg/dL 8.5-10.1 [facility] Serum or plasma creatinine m easurement (mass/volume)Ordered By: Caprice Jerry on 10-10-2023 Creatinine [Mass/Vol] 1.91 mg/dL 0.55-1.02 [facility] Comment on above: The validity of the calculated GFR & GFRAA in patients over 70 years has not been determined. Clinical correlation is essential. Serum or plasma urea nitroge n measurement (mass/volume)Ordered By: Caprice Jerry on 10-10-2023 Urea nitrogen [Mass/Vol] 17 mg/dL 06-15 [facility] Thin prep Papanicolaou smear with manual screeningOrdered By: Caprice Jerry on 10-10-2023 Thin prep Papanicolaou smear with manual screening 68 U/L 15 [facility] Thin prep Papanicolaou smear with manual screening 8 5-15 [facility] No Panel Informationon 09-15 POC SARS CoV-2 Antigen Negative [facility] Basophil percentageOrdered B y: Jmi Manriquez on 08-25-2023 Bilirubin [Mass/Vol] 0.20 mg/dL 0.20-1.00 [facility] Comment on above: For patients on eltr ombopag therapy, use of Dimension [employer] TBIL is not recommended. Cholesterol [Mass/Vol] 224 mg/dL <200 [facility] Comment on above: <200 mg/dL Desirable 200-240 mg/dL Borderline >240 mg/dL High Risk Protein [Mass/Vol] 7.2 g/dL 6.4-8.2 [facility] Triglyceride [Mass/Vol] 405 mg/dL <199 [facility] Comment on above: The drugs N-Acetylcy [...] on 08-25-2023 Bilirubin.direct [Mass/Vol] 0.10 mg/dL 0.00-0.30 [facility] Laboratory - Chemistry and C hemistry - challengeOrdered By: Jim Manriquez on 08-25-2023 ALP [Catalytic activity/Vol] 97 U/L 45-117 [facility] ALT [Catalytic activity/Vol] 88 U/L 13-56 [facility] Globulin (S) [Mass/Vol] 3.7 g/dL 2.2-4.2 [facility] Lipase [Catalytic activity/Vol] 53 U/L 13-75 [facility] Comment on above: Please note:LIPASE r evised reference range effective 23. New Lipase methodology. Expected to produce lower values than the previous assay method. NEW Reference Range: 13 - 75 U/L Serum or plasma albumin alphonso urement (mass/volume)Ordered By: Jim Manriquez on 08-25-2023 Albumin [Mass/Vol] 3.5 g/dL 3.2-5.0 [facility] Serum or plasma cholesterol in HDL measurement (mass/volume)Ordered By: Jim Manriquez on 08-25-2023 Cholesterol in HDL [Mass/Vol] 61 mg/dL >40 [facility] Comment on above: The drugs N-Acetylcy steine and Metamizole may falsely depress this assay. Reference Range HDL <40 mg/dL Low HDL Cholesterol HDL >or= 60 mg/dL High HDL Cholesterol Serum or plasma cholesterol in VLDL measurement (mass/volume)Ordered By: Jim Manriquez on 08-25-2023 Cholesterol in VLDL [Mass/Vol] [facility] Comment on above: Test not performed Serum or plasma low density lipoprotein (LDL) cholesterol measurement (mass/volume)Ordered By: Jim Manriquez on 08-25-2023 Cholesterol in LDL [Mass/Vol] [facility] Comment on above: Test not performed Thin prep Papanicolaou smear with manual screeningOrdered By: Jim Manriquez on 08-25-2023 Thin prep Papanicolaou smear with manual screening 43 U/L 15-37 [facility] Absolute lymphocyte countOrd ered By: Jennifer Davila on 08-23-2023 Lymphocytes Auto (Unsp spec) [#/Vol] 2.29 10*3/uL 0.83-4.51 [facility] Basophil percentageOrdered B y: Jennifer Davila on 08-23-2023 Basophil percentage 0 SEEN /hpf 0-5 [facility] Basophils/100 WBC (Bld) 0.5 % 0-1 [facility] Bilirubin [Mass/Vol] 0.30 mg/dL 0.20-1.00 [facility] Comment on above: For patients on eltr ombopag therapy, use of Dimension [employer] TBIL is not recommended. Chloride [Moles/Vol] 103 mmol/L 98-107 [facility] Eosinophils/100 WBC (Bld) 1.6 % 0-5 [facility] Glucose [Mass/Vol] 205 mg/dL 74-106 [facility] Comment on above: Glucose result great er than or equal to 200 mg/dLsuggests DIABETES MELLITUS per A.D.A. criteria. Neutrophils (Bld) [#/Vol] 7.5 10*3/uL 2.0-7.7 [facility] Neutrophils/100 WBC (Bld) 69.4 % 47-70 [facility] Potassium [Moles/Vol] 4.3 mmol/L 3.5-5.1 [facility] Protein [Mass/Vol] 7.8 g/dL 6.4-8.2 [facility] Sodium [Moles/Vol] 135 mmol/L 136-145 [facility] WBC (Bld) [#/Vol] 10.8 10*3/uL 4.4-11.0 [facility] Bilirubin Test strip Ql (U)O rdered By: Jennifer Davila on 08-23-2023 Bilirubin Ql (U) Negative Negative [facility] Blood erythrocytes count (nu mber/volume)Ordered By: Jennifer Davila on 08-23-2023 RBC (Bld) [#/Vol] 4.30 10*6/uL 4.2-5.4 [facility] Blood hemoglobin measurement (mass/volume)Ordered By: Jennifer Davila on 08-23-2023 Hemoglobin (Bld) [Mass/Vol] 14.0 g/dL 12.0-15.0 [facility] Blood lymphocytes/100 leukoc ytesOrdered By: Jennifer Davila on 08-23-2023 Lymphocytes/100 WBC (Bld) 21.3 % 19-41 [facility] Blood monocytes/100 leukocyt esOrdered By: Jennifer Davila on 08-23-2023 Monocytes/100 WBC (Bld) 6.7 % 0-10 [facility] Blood platelet mean volumeOr dered By: Jennifer Davila on 08-23-2023 Platelet mean volume (Bld) [Entitic vol] 9.6 fL 6.2-12.0 [facility] Determination of erythrocyte mean corpuscular volume (MCV)Ordered By: Jennifer Davila on 08-23-2023 MCV (RBC) [Entitic vol] 97.9 fL 81-99 [facility] Hematocrit Auto (Bld) [Volum e fraction]Ordered By: Jennifer Davila on 08-23-2023 Hematocrit (Bld) [Volume fraction] 42.1 % 37-47 [facility] Ketones Test strip Ql (U)Ord ered By: Jennifer Davila on 08-23-2023 Ketones Ql (U) Negative Negative [facility] Laboratory - Chemistry and C hemistry - challengeOrdered By: Jennifer Davila on 08-23-2023 ALP [Catalytic activity/Vol] 69 U/L 45-117 [facility] ALT [Catalytic activity/Vol] 26 U/L 13-56 [facility] CO2 [Moles/Vol] 24.0 mmol/L 21.0-32.0 [facility] Globulin (S) [Mass/Vol] 4.2 g/dL 2.2-4.2 [facility] Lipase [Catalytic activity/Vol] 41 U/L 13-75 [facility] Comment on above: Please note:LIPASE r evised reference range effective 23. New Lipase methodology. Expected to produce lower values than the previous assay method. NEW Reference Range: 13 - 75 U/L Urea nitrogen/Creatinine [Mass ratio] 9.5 mg/mg 10-20 [facility] Laboratory - Hematology and Cell countsOrdered By: Jennifer Davila on 08-23-2023 Erythrocyte distribution width (RBC) [Entitic vol] 45.9 fL 35.1-43.9 [facility] Erythrocyte distribution width (RBC) [Ratio] 12.8 % 11.6-14.6 [facility] Immature granulocytes/100 WBC (Bld) 0.500 % 0.0-0.9 [facility] Comment on above: IG% - Immature Granu locytes (promyelocytes, myelocytes and metamyelocytes) > 1% indicates that a LEFT SHIFT is Present. MCH (RBC) [Entitic mass] 32.6 pg 27.0-32.0 [facility] Nucleated RBC/100 WBC (Bld) [Ratio] 0 % 0-5 [facility] MCHC Auto (RBC) [Mass/Vol]Or dered By: Jennifer Davila on 08-23-2023 MCHC (RBC) [Mass/Vol] 33.3 g/dL 32-36 [facility] Mucus LM Ql (Urine sed)Order ed By: Jennifer Davila on 08-23-2023 Mucus Ql (Urine sed) 0 SEEN /hpf [facility] Nitrite Test strip Ql (U)Ord ered By: Jennifer Davila on 08-23-2023 Nitrite Ql (U) Negative Negative [facility] No Panel InformationOrdered By: Jennifer Davila on 08-23-2023 Estimated Creatinine Clearance Calc 57.81 ml/min [facility] Estimated GFR (MDRD) Amer 72 mL/min >60 [facility] Comment on above: GFR Calc Estimated GFR (MDRD) Non-Af Amer 60 mL/min >60 [facility] Comment on above: Non- GFR Calc Troponin I High Sensitivity 3 pg/mL 3.0-54.0 [facility] Comment on above: Please Note: New Miri t Units and Gender Specific Reference Ranges. For more information see Policy Stat Procedure [employer] High Sensitivity Troponin (TNIH) and attachments. Platelets bldOrdered By: Kole Davila on 08-23-2023 Platelets (Bld) [#/Vol] 264 10*3/uL 150-450 [facility] Protein Test strip Ql (U)Ord ered By: Jennifer Davila on 08-23-2023 Protein Ql (U) Negative Negative [facility] Serum or plasma albumin alphonso urement (mass/volume)Ordered By: Jennifer Davila on 08-23-2023 Albumin [Mass/Vol] 3.6 g/dL 3.2-5.0 [facility] Serum or plasma albumin/glob ulin mass ratioOrdered By: Jennifer Davila on 08-23-2023 Albumin/Globulin [Mass ratio] 0.9 {ratio} 0.9-2.4 [facility] Serum or plasma calcium alphonso urement (mass/volume)Ordered By: Jennifer Davila on 08-23-2023 Calcium [Mass/Vol] 8.8 mg/dL 8.5-10.1 [facility] Serum or plasma creatinine m easurement (mass/volume)Ordered By: Jennifer Davila on 08-23-2023 Creatinine [Mass/Vol] 1.05 mg/dL 0.55-1.02 [facility] Comment on above: The validity of the calculated GFR & GFRAA in patients over 70 years has not been determined. Clinical correlation is essential. Serum or plasma urea nitroge n measurement (mass/volume)Ordered By: Jennifer Davila on 08-23-2023 Urea nitrogen [Mass/Vol] 10 mg/dL 7-18 [facility] Squamous epithelial cells de tection in urine sediment by light microscopyOrdered By: Jennifer Davila on 08-23-2023 Epithelial cells.squamous LM Ql (Urine sed) 0-5 SEEN /hpf 5-10 [facility] Thin prep Papanicolaou smear with manual screeningOrdered By: Jennifer Davila on 08-23-2023 Thin prep Papanicolaou smear with manual screening 18 U/L 15-37 [facility] Thin prep Papanicolaou smear with manual screening 8 5-15 [facility] Urine blood detectionOrdered By: Jennifer Davila on 08-23-2023 RBC Ql (U) Negative Negative [facility] RBC Ql (U) 0 SEEN /hpf 0-5 [facility] Urine clarityOrdered By: Kole Davila on 08-23-2023 Clarity (U) Clear Clear [facility] Urine color determinationOrd ered By: Jennifer Davila on 08-23-2023 Color (U) Yellow Yellow [facility] Urine glucose detectionOrder ed By: Jennifer Davila on 08-23-2023 Glucose Ql (U) 1000 mg/dl Normal [facility] Urine leukocyte esterase det ection by dipstickOrdered By: Jennifer Davila on 08-23-2023 Leukocyte esterase Test strip Ql (U) Negative Negative [facility] Urine pHOrdered By: Suha Davila on 08-23-2023 pH (U) 6.0 [pH] 5.0 - 8.0 [facility] Urine sediment bacteria coun t by microscopy (number/high power field)Ordered By: Jennifer Davila on 08-23-2023 Bacteria LM.HPF (Urine sed) [#/Area] 0 /[HPF] None Seen [facility] Urine specific gravity measu rementOrdered By: Jennifer Davila on 08-23-2023 Specific gravity (U) [Rel density] 1.010 1.002-1.030 [facility] Urobilinogen Auto test strip Ql (U)Ordered By: Jennifer Davila on 08-23-2023 Urobilinogen Ql (U) Normal mg/dl Normal [facility] Absolute lymphocyte countOrd ered By: Caprice Jerry on 07-29-2023 Lymphocytes Auto (Unsp spec) [#/Vol] 2.24 10*3/uL 0.83-4.51 [facility] Basophil percentageOrdered B y: Caprice Jerry on 07-29-2023 Basophils/100 WBC (Bld) 0.5 % 0-1 [facility] Bilirubin [Mass/Vol] 0.30 mg/dL 0.20-1.00 [facility] Comment on above: For patients on eltr ombopag therapy, use of Dimension [employer]rich TBIL is not recommended. Chloride [Moles/Vol] 102 mmol/L 98-107 [facility] Eosinophils/100 WBC (Bld) 1.6 % 0-5 [facility] Glucose [Mass/Vol] 173 mg/dL 74-106 [facility] Comment on above: Fasting Glucose resu lt greater than or equal to 126 mg/dL suggests DIABETES MELLITUS per A.D.A. criteria. Neutrophils (Bld) [#/Vol] 5.6 10*3/uL 2.0-7.7 [facility] Neutrophils/100 WBC (Bld) 63.7 % 47-70 [facility] Potassium [Moles/Vol] 3.9 mmol/L 3.5-5.1 [facility] Protein [Mass/Vol] 7.3 g/dL 6.4-8.2 [facility] Sodium [Moles/Vol] 135 mmol/L 136-145 [facility] WBC (Bld) [#/Vol] 8.8 10*3/uL 4.4-11.0 [facility] Beta hCG serum qualOrdered B y: Caprice Jerry on 07-29-2023 Beta HCG ( test) Ql Negative [facility] Blood erythrocytes count (nu mber/volume)Ordered By: Caprice Jerry on 07-29-2023 RBC (Bld) [#/Vol] 3.94 10*6/uL 4.2-5.4 [facility] Blood hemoglobin measurement (mass/volume)Ordered By: Caprice Jerry on 07-29-2023 Hemoglobin (Bld) [Mass/Vol] 13.1 g/dL 12.0-15.0 [facility] Blood lymphocytes/100 leukoc ytesOrdered By: Caprice Jerry on 07-29-2023 Lymphocytes/100 WBC (Bld) 25.4 % 19-41 [facility] Blood monocytes/100 leukocyt esOrdered By: Caprice Jerry on 07-29-2023 Monocytes/100 WBC (Bld) 8.5 % 0-10 [facility] Blood platelet mean volumeOr dered By: Caprice Jerry on 07-29-2023 Platelet mean volume (Bld) [Entitic vol] 9.6 fL 6.2-12.0 [facility] Determination of erythrocyte mean corpuscular volume (MCV)Ordered By: Caprice Jerry on 07-29-2023 MCV (RBC) [Entitic vol] 97.7 fL 81-99 [facility] Direct bilirubinOrdered By: Caprice Jerry on 07-29-2023 Bilirubin.direct [Mass/Vol] 0.08 mg/dL 0.00-0.30 [facility] Hematocrit Auto (Bld) [Volum e fraction]Ordered By: Caprice Jerry on 07-29-2023 Hematocrit (Bld) [Volume fraction] 38.5 % 37-47 [facility] Laboratory - Chemistry and C hemistry - challengeOrdered By: Caprice Jerry on 07-29-2023 ALP [Catalytic activity/Vol] 93 U/L 45-117 [facility] ALT [Catalytic activity/Vol] 45 U/L 13-56 [facility] CO2 [Moles/Vol] 26.0 mmol/L 21.0-32.0 [facility] Globulin (S) [Mass/Vol] 3.8 g/dL 2.2-4.2 [facility] Lipase [Catalytic activity/Vol] 32 U/L 13-75 [facility] Comment on above: Please note:LIPASE r evised reference range effective 23. New Lipase methodology. Expected to produce lower values than the previous assay method. NEW Reference Range: 13 - 75 U/L Urea nitrogen/Creatinine [Mass ratio] 12.5 mg/mg 10-20 [facility] Laboratory - Hematology and Cell countsOrdered By: Caprice Jerry on 07-29-2023 Erythrocyte distribution width (RBC) [Entitic vol] 45.1 fL 35.1-43.9 [facility] Erythrocyte distribution width (RBC) [Ratio] 12.7 % 11.6-14.6 [facility] Immature granulocytes/100 WBC (Bld) 0.300 % 0.0-0.9 [facility] Comment on above: IG% - Immature Granu locytes (promyelocytes, myelocytes and metamyelocytes) > 1% indicates that a LEFT SHIFT is Present. MCH (RBC) [Entitic mass] 33.2 pg 27.0-32.0 [facility] Nucleated RBC/100 WBC (Bld) [Ratio] 0 % 0-5 [facility] MCHC Auto (RBC) [Mass/Vol]Or dered By: Caprice Jerry on 07-29-2023 MCHC (RBC) [Mass/Vol] 34.0 g/dL 32-36 [facility] No Panel InformationOrdered By: Caprice Jerry on 07-29-2023 Troponin I High Sensitivity 4 pg/mL 3.0-54.0 [facility] Comment on above: Please Note: New [place] t Units and Gender Specific Reference Ranges. For more information see Policy Stat Procedure [employer] High Sensitivity Troponin (TNIH) and attachments. Estimated Creatinine Clearance Calc 68.98 ml/min [facility] Estimated GFR (MDRD) Amer 89 mL/min >60 [facility] Comment on above: GFR Calc Estimated GFR (MDRD) Non-Af Amer 74 mL/min >60 [facility] Comment on above: Non- GFR Calc Platelets bldOrdered By: Leona Jerry on 07-29-2023 Platelets (Bld) [#/Vol] 281 10*3/uL 150-450 [facility] Serum or plasma albumin alphonso urement (mass/volume)Ordered By: Caprice Jerry on 07-29-2023 Albumin [Mass/Vol] 3.5 g/dL 3.2-5.0 [facility] Serum or plasma calcium alphonso urement (mass/volume)Ordered By: Caprice Jerry on 07-29-2023 Calcium [Mass/Vol] 8.5 mg/dL 8.5-10.1 [facility] Serum or plasma creatinine m easurement (mass/volume)Ordered By: Caprice Jerry on 07-29-2023 Creatinine [Mass/Vol] 0.88 mg/dL 0.55-1.02 [facility] Comment on above: The validity of the calculated GFR & GFRAA in patients over 70 years has not been determined. Clinical correlation is essential. Serum or plasma urea nitroge n measurement (mass/volume)Ordered By: Caprice Jerry on 07-29-2023 Urea nitrogen [Mass/Vol] 11 mg/dL 7-18 [facility] Thin prep Papanicolaou smear with manual screeningOrdered By: Caprice Jerry on 07-29-2023 Thin prep Papanicolaou smear with manual screening 24 U/L 15-37 [facility] Thin prep Papanicolaou smear with manual screening 7 5-15 [facility] Absolute lymphocyte countOrd ered By: Milana Garcia on 07-19-2023 Lymphocytes Auto (Unsp spec) [#/Vol] 2.51 10*3/uL 0.83-4.51 [facility] Basophil percentageOrdered B y: Milana Garcia on 07-19-2023 Basophil percentage 3.1 mg/dL 2.5-4.9 [facility] Basophils/100 WBC (Bld) 0.4 % 0-1 [facility] Bilirubin [Mass/Vol] 0.50 mg/dL 0.20-1.00 [facility] Comment on above: For patients on eltr ombopag therapy, use of Dimension [place] TBIL is not recommended. Chloride [Moles/Vol] 106 mmol/L 98-107 [facility] Eosinophils/100 WBC (Bld) 3.2 % 0-5 [facility] Glucose [Mass/Vol] 123 mg/dL 74-106 [facility] Comment on above: Fasting Glucose resu lt from 100 to 125 mg/dL suggests IMPAIRED HOMEOSTASIS per A.D.A. criteria. Neutrophils (Bld) [#/Vol] 3.7 10*3/uL 2.0-7.7 [facility] Neutrophils/100 WBC (Bld) 52.0 % 47-70 [facility] Potassium [Moles/Vol] 3.5 mmol/L 3.5-5.1 [facility] Protein [Mass/Vol] 6.9 g/dL 6.4-8.2 [facility] Sodium [Moles/Vol] 140 mmol/L 136-145 [facility] WBC (Bld) [#/Vol] 7.2 10*3/uL 4.4-11.0 [facility] Blood erythrocytes count (nu mber/volume)Ordered By: Milana Garcia on 07-19-2023 RBC (Bld) [#/Vol] 3.83 10*6/uL 4.2-5.4 [facility] Blood hemoglobin measurement (mass/volume)Ordered By: Milana Garcia on 07-19-2023 Hemoglobin (Bld) [Mass/Vol] 12.3 g/dL 12.0-15.0 [facility] Blood lymphocytes/100 leukoc ytesOrdered By: Milana Garcia on 07-19-2023 Lymphocytes/100 WBC (Bld) 35.1 % 19-41 [facility] Blood monocytes/100 leukocyt esOrdered By: Milana Garcia on 07-19-2023 Monocytes/100 WBC (Bld) 9.0 % 0-10 [facility] Blood platelet mean volumeOr dered By: Milana Garcia on 07-19-2023 Platelet mean volume (Bld) [Entitic vol] 9.6 fL 6.2-12.0 [facility] Determination of erythrocyte mean corpuscular volume (MCV)Ordered By: Milana Garcia on 07-19-2023 MCV (RBC) [Entitic vol] 97.9 fL 81-99 [facility] Hematocrit Auto (Bld) [Volum e fraction]Ordered By: Milana Garcia on 07-19-2023 Hematocrit (Bld) [Volume fraction] 37.5 % 37-47 [facility] Laboratory - Chemistry and C hemistry - challengeOrdered By: Milana Garcia on 07-19-2023 ALP [Catalytic activity/Vol] 68 U/L 45-117 [facility] ALT [Catalytic activity/Vol] 28 U/L 13-56 [facility] CO2 [Moles/Vol] 27.0 mmol/L 21.0-32.0 [facility] Cobalamin (Vitamin B12) [Mass/Vol] 534 pg/mL 211-911 [facility] Globulin (S) [Mass/Vol] 3.6 g/dL 2.2-4.2 [facility] Magnesium [Mass/Vol] 1.6 mg/dL 1.6-2.6 [facility] Urea nitrogen/Creatinine [Mass ratio] 10.4 mg/mg 10-20 [facility] Laboratory - Hematology and Cell countsOrdered By: Milana Garcia on 07-19-2023 Erythrocyte distribution width (RBC) [Entitic vol] 43.8 fL 35.1-43.9 [facility] Erythrocyte distribution width (RBC) [Ratio] 12.3 % 11.6-14.6 [facility] Immature granulocytes/100 WBC (Bld) 0.300 % 0.0-0.9 [facility] Comment on above: IG% - Immature Granu locytes (promyelocytes, myelocytes and metamyelocytes) > 1% indicates that a LEFT SHIFT is Present. MCH (RBC) [Entitic mass] 32.1 pg 27.0-32.0 [facility] Nucleated RBC/100 WBC (Bld) [Ratio] 0 % 0-5 [facility] MCHC Auto (RBC) [Mass/Vol]Or dered By: Milana Garcia on 07-19-2023 MCHC (RBC) [Mass/Vol] 32.8 g/dL 32-36 [facility] No Panel InformationOrdered By: Milana Garcia on 07-19-2023 Estimated GFR (MDRD) Amer 121 mL/min >60 [facility] Comment on above: GFR Calc Estimated GFR (MDRD) Non-Af Amer 100 mL/min >60 [facility] Comment on above: Non- GFR Calc Thyroid Stimulating Hormone (TSH) 1.07 uIU/mL 0.358-3.74 [facility] Platelets bldOrdered By: Yamel Garcia on 07-19-2023 Platelets (Bld) [#/Vol] 245 10*3/uL 150-450 [facility] Serum or plasma albumin alphonso urement (mass/volume)Ordered By: Milana Garcia on 07-19-2023 Albumin [Mass/Vol] 3.3 g/dL 3.2-5.0 [facility] Serum or plasma albumin/glob ulin mass ratioOrdered By: Milana Garcia on 07-19-2023 Albumin/Globulin [Mass ratio] 0.9 {ratio} 0.9-2.4 [facility] Serum or plasma calcium alphonso urement (mass/volume)Ordered By: Milana Garcia on 07-19-2023 Calcium [Mass/Vol] 8.4 mg/dL 8.5-10.1 [facility] Serum or plasma creatinine m easurement (mass/volume)Ordered By: Milana Garcia on 07-19-2023 Creatinine [Mass/Vol] 0.68 mg/dL 0.55-1.02 [facility] Comment on above: The validity of the calculated GFR & GFRAA in patients over 70 years has not been determined. Clinical correlation is essential. Serum or plasma folate measu rement (mass/volume)Ordered By: Milana Garcia on 07-19-2023 Folate [Mass/Vol] 58.30 ng/mL 3.1-55.4 [facility] Serum or plasma urea nitroge n measurement (mass/volume)Ordered By: Milana Garcia on 07-19-2023 Urea nitrogen [Mass/Vol] 7 mg/dL 7-18 [facility] Thin prep Papanicolaou smear with manual screeningOrdered By: Milana Garcia on 07-19-2023 Thin prep Papanicolaou smear with manual screening 19 U/L 15-37 [facility] Thin prep Papanicolaou smear with manual screening 7 5-15 [facility] No Panel InformationOrdered By: Dr. Jerry on 05-25-2023 Troponin I High Sensitivity 3 pg/mL 3.0-54.0 [facility] Comment on above: Please Note: [place] t Units and Gender Specific Reference Ranges. For more information see Policy Stat Procedure [facility] High Sensitivity Troponin (TNIH) and attachments. Absolute lymphocyte countOrd ered By: Dr. Jerry on 05-24-2023 Lymphocytes Auto (Unsp spec) [#/Vol] 3.25 10*3/uL 0.83-4.51 [facility] Basophil percentageOrdered B y: Dr. Jerry on 05-24-2023 Basophil percentage 0 SEEN /hpf 0-5 [facility] Basophils/100 WBC (Bld) 0.7 % 0-1 [facility] Bilirubin [Mass/Vol] 0.20 mg/dL 0.20-1.00 [facility] Comment on above: For patients on eltr ombopag therapy, use of Dimension [place] TBIL is not recommended. Chloride [Moles/Vol] 112 mmol/L 98-107 [facility] Eosinophils/100 WBC (Bld) 2.2 % 0-5 [facility] Glucose [Mass/Vol] 127 mg/dL 74-106 [facility] Comment on above: Fasting Glucose resu lt greater than or equal to 126 mg/dL suggests DIABETES MELLITUS per A.D.A. criteria. Neutrophils (Bld) [#/Vol] 2.9 10*3/uL 2.0-7.7 [facility] Neutrophils/100 WBC (Bld) 40.3 % 47-70 [facility] Potassium [Moles/Vol] 5.9 mmol/L 3.5-5.1 [facility] Comment on above: Moderate Hemolysis, Result may be falsely increased. Protein [Mass/Vol] 6.7 g/dL 6.4-8.2 [facility] Sodium [Moles/Vol] 138 mmol/L 136-145 [facility] WBC (Bld) [#/Vol] 7.2 10*3/uL 4.4-11.0 [facility] Beta hCG serum qualOrdered B y: Dr. Jerry on 05-24-2023 Beta HCG ( test) Ql Negative [facility] Bilirubin Test strip Ql (U)O rdered By: Dr. Jerry on 05-24-2023 Bilirubin Ql (U) Negative Negative [facility] Blood erythrocytes count (nu mber/volume)Ordered By: Dr. Jerry on 05-24-2023 RBC (Bld) [#/Vol] 3.88 10*6/uL 4.2-5.4 [facility] Blood hemoglobin measurement (mass/volume)Ordered By: Dr. Jerry on 05-24-2023 Hemoglobin (Bld) [Mass/Vol] 12.9 g/dL 12.0-15.0 [facility] Blood lymphocytes/100 leukoc ytesOrdered By: Dr. Jerry on 05-24-2023 Lymphocytes/100 WBC (Bld) 45.0 % 19-41 [facility] Blood monocytes/100 leukocyt esOrdered By: Dr. Jerry on 05-24-2023 Monocytes/100 WBC (Bld) 11.4 % 0-10 [facility] Blood platelet mean volumeOr dered By: Dr. Jerry on 05-24-2023 Platelet mean volume (Bld) [Entitic vol] 9.8 fL 6.2-12.0 [facility] Determination of erythrocyte mean corpuscular volume (MCV)Ordered By: Dr. Jerry on 05-24-2023 MCV (RBC) [Entitic vol] 100.0 fL 81-99 [facility] Direct bilirubinOrdered By: Dr. Jerry on 05-24-2023 Bilirubin.direct [Mass/Vol] mg/dL 0.00-0.30 [facility] Hematocrit Auto (Bld) [Volum e fraction]Ordered By: Dr. Jerry on 05-24-2023 Hematocrit (Bld) [Volume fraction] 38.8 % 37-47 [facility] Ketones Test strip Ql (U)Ord ered By: Dr. Jerry on 05-24-2023 Ketones Ql (U) Negative Negative [facility] Laboratory - Chemistry and C hemistry - challengeOrdered By: Dr. Jerry on 05-24-2023 ALP [Catalytic activity/Vol] 57 U/L 45-117 [facility] ALT [Catalytic activity/Vol] 27 U/L 13-56 [facility] CO2 [Moles/Vol] 19.0 mmol/L 21.0-32.0 [facility] Globulin (S) [Mass/Vol] 3.8 g/dL 2.2-4.2 [facility] Lipase [Catalytic activity/Vol] 64 U/L 13-75 [facility] Comment on above: Please note:LIPASE r evised reference range effective 23. New Lipase methodology. Expected to produce lower values than the previous assay method. NEW Reference Range: 13 - 75 U/L Urea nitrogen/Creatinine [Mass ratio] 9.1 mg/mg 10-20 [facility] Laboratory - Hematology and Cell countsOrdered By: Dr. Jerry on 05-24-2023 Erythrocyte distribution width (RBC) [Entitic vol] 46.2 fL 35.1-43.9 [facility] Erythrocyte distribution width (RBC) [Ratio] 12.6 % 11.6-14.6 [facility] Immature granulocytes/100 WBC (Bld) 0.400 % 0.0-0.9 [facility] Comment on above: IG% - Immature Granu locytes (promyelocytes, myelocytes and metamyelocytes) > 1% indicates that a LEFT SHIFT is Present. MCH (RBC) [Entitic mass] 33.2 pg 27.0-32.0 [facility] Nucleated RBC/100 WBC (Bld) [Ratio] 0 % 0-5 [facility] MCHC Auto (RBC) [Mass/Vol]Or dered By: Dr. Jerry on 05-24-2023 MCHC (RBC) [Mass/Vol] 33.2 g/dL 32-36 [facility] Mucus LM Ql (Urine sed)Order ed By: Dr. Jerry on 05-24-2023 Mucus Ql (Urine sed) 0 SEEN /hpf [facility] Nitrite Test strip Ql (U)Ord ered By: Dr. Jerry on 05-24-2023 Nitrite Ql (U) Negative Negative [facility] No Panel InformationOrdered By: Dr. Jerry on 05-24-2023 Estimated Creatinine Clearance Calc 45.99 ml/min [facility] Estimated GFR (MDRD) Amer 56 mL/min >60 [facility] Comment on above: GFR Calc Estimated GFR (MDRD) Non-Af Amer 46 mL/min >60 [facility] Comment on above: Non- GFR Calc Ethyl Alcohol Level 193.0 mg/dL [facility] Comment on above: The serum:whole bloo d ethanol ratio is approximately 1.14and varies slightly with hematocrit. Medical Alcohol reference interval and critical value innon-tolerant individuals; 50 - 100 Impairment 100 Intoxication 100 - 250 Severe Poisoning 250 - 400 Deep/possible fatal coma Platelets bldOrdered By: Dr. Jerry on 05-24-2023 Platelets (Bld) [#/Vol] 276 10*3/uL 150-450 [facility] Protein Test strip Ql (U)Ord ered By: Dr. Jerry on 05-24-2023 Protein Ql (U) Negative Negative [facility] Serum or plasma acetone alphonso urement (mass/volume)Ordered By: Dr. Jerry on 05-24-2023 Acetone [Mass/Vol] Negative NEG [facility] Serum or plasma albumin alphonso urement (mass/volume)Ordered By: Dr. Jerry on 05-24-2023 Albumin [Mass/Vol] 2.9 g/dL 3.2-5.0 [facility] Serum or plasma calcium alphonso urement (mass/volume)Ordered By: Dr. Jerry on 05-24-2023 Calcium [Mass/Vol] 7.5 mg/dL 8.5-10.1 [facility] Serum or plasma creatinine m easurement (mass/volume)Ordered By: Dr. Jerry on 05-24-2023 Creatinine [Mass/Vol] 1.32 mg/dL 0.55-1.02 [facility] Comment on above: The validity of the calculated GFR & GFRAA in patients over 70 years has not been determined. Clinical correlation is essential. Serum or plasma urea nitroge n measurement (mass/volume)Ordered By: Dr. Jerry on 05-24-2023 Urea nitrogen [Mass/Vol] 12 mg/dL 7-18 [facility] Squamous epithelial cells de tection in urine sediment by light microscopyOrdered By: Dr. Jerry on 05-24-2023 Epithelial cells.squamous LM Ql (Urine sed) 0 SEEN /hpf 5-10 [facility] Thin prep Papanicolaou smear with manual screeningOrdered By: Dr. Jerry on 05-24-2023 Thin prep Papanicolaou smear with manual screening 47 U/L 15-37 [facility] Comment on above: Moderate Hemolysis, Result may be falsely increased. Thin prep Papanicolaou smear with manual screening 7 5-15 [facility] Urine blood detectionOrdered By: Dr. Jerry on 05-24-2023 RBC Ql (U) Negative Negative [facility] RBC Ql (U) 0 SEEN /hpf 0-5 [facility] Urine clarityOrdered By: Dr. Jerry on 05-24-2023 Clarity (U) Clear Clear [facility] Urine color determinationOrd ered By: Dr. Jerry on 05-24-2023 Color (U) Yellow Yellow [facility] Urine glucose detectionOrder ed By: Dr. Jerry on 05-24-2023 Glucose Ql (U) 1000 mg/dl Normal [facility] Urine leukocyte esterase det ection by dipstickOrdered By: Dr. Jerry on 05-24-2023 Leukocyte esterase Test strip Ql (U) Negative Negative [facility] Urine pHOrdered By: Dr. Maximiliano morris on 05-24-2023 pH (U) 6.5 [pH] 5.0 - 8.0 [facility] Urine sediment bacteria coun t by microscopy (number/high power field)Ordered By: Dr. Jerry on 05-24-2023 Bacteria LM.HPF (Urine sed) [#/Area] 0 /[HPF] None Seen [facility] Urine specific gravity measu rementOrdered By: Dr. Jerry on 05-24-2023 Specific gravity (U) [Rel density] 1.005 1.002-1.030 [facility] Urobilinogen Auto test strip Ql (U)Ordered By: Dr. Jerry on 05-24-2023 Urobilinogen Ql (U) Normal mg/dl Normal [facility] Basophil percentageOrdered B y: Milana Garcia on 05-19-2023 Basophil percentage 2.6 mg/dL 2.5-4.9 [facility] Bilirubin [Mass/Vol] 0.30 mg/dL 0.20-1.00 [facility] Comment on above: For patients on eltr ombopag therapy, use of Dimension [employer] TBIL is not recommended. Protein [Mass/Vol] 7.2 g/dL 6.4-8.2 [facility] Direct bilirubinOrdered By: Milana Garcia on 05-19-2023 Bilirubin.direct [Mass/Vol] 0.11 mg/dL 0.00-0.30 [facility] Laboratory - Chemistry and C hemistry - challengeOrdered By: Milana Garcia on 05-19-2023 ALP [Catalytic activity/Vol] 69 U/L 45-117 [facility] ALT [Catalytic activity/Vol] 22 U/L 13-56 [facility] Cobalamin (Vitamin B12) [Mass/Vol] 361 pg/mL 211-911 [facility] Free T4 [Mass/Vol] 0.78 ng/dL 0.76-1.46 [facility] Globulin (S) [Mass/Vol] 3.8 g/dL 2.2-4.2 [facility] Magnesium [Mass/Vol] 1.8 mg/dL 1.6-2.6 [facility] No Panel InformationOrdered By: Milana Garcia on 05-19-2023 Thyroid Stimulating Hormone (TSH) 1.95 uIU/mL 0.358-3.74 [facility] Serum or plasma albumin alphonso urement (mass/volume)Ordered By: Milana Garcia on 05-19-2023 Albumin [Mass/Vol] 3.4 g/dL 3.2-5.0 [facility] Serum or plasma ferritin alexis surement (mass/volume)Ordered By: Milana Garcia on 05-19-2023 Ferritin [Mass/Vol] 69 ng/mL 8-252 [facility] Serum or plasma folate measu rement (mass/volume)Ordered By: Milana Garcia on 05-19-2023 Folate [Mass/Vol] 4.00 ng/mL 3.1-55.4 [facility] Thin prep Papanicolaou smear with manual screeningOrdered By: Milana Garcia on 05-19-2023 Thin prep Papanicolaou smear with manual screening 18 U/L 15-37 [facility] No Panel InformationOrdered By: Dr. Dyer on 05-05-2023 Troponin I High Sensitivity < 3 pg/mL 3.0-54.0 [facility] Comment on above: Please Note: New [place] t Units and Gender Specific Reference Ranges. For more information see Policy Stat Procedure [facility] High Sensitivity Troponin (TNIH) and attachments. Absolute lymphocyte countOrd ered By: Dr. Dyer on 05-04-2023 Lymphocytes Auto (Unsp spec) [#/Vol] 3.17 10*3/uL 0.83-4.51 [facility] Basophil percentageOrdered B y: Dr. Dyer on 05-04-2023 Basophils/100 WBC (Bld) 0.4 % 0-1 [facility] Chloride [Moles/Vol] 105 mmol/L 98-107 [facility] Eosinophils/100 WBC (Bld) 2.7 % 0-5 [facility] Glucose [Mass/Vol] 103 mg/dL 74-106 [facility] Comment on above: Fasting Glucose resu lt from 100 to 125 mg/dL suggests IMPAIRED HOMEOSTASIS per A.D.A. criteria. Neutrophils (Bld) [#/Vol] 4.6 10*3/uL 2.0-7.7 [facility] Neutrophils/100 WBC (Bld) 51.3 % 47-70 [facility] Potassium [Moles/Vol] 3.4 mmol/L 3.5-5.1 [facility] Sodium [Moles/Vol] 138 mmol/L 136-145 [facility] WBC (Bld) [#/Vol] 8.9 10*3/uL 4.4-11.0 [facility] Blood erythrocytes count (nu mber/volume)Ordered By: Dr. Dyer on 05-04-2023 RBC (Bld) [#/Vol] 3.72 10*6/uL 4.2-5.4 [facility] Blood hemoglobin measurement (mass/volume)Ordered By: Dr. Dyer on 05-04-2023 Hemoglobin (Bld) [Mass/Vol] 12.1 g/dL 12.0-15.0 [facility] Blood lymphocytes/100 leukoc ytesOrdered By: Dr. Dyer on 05-04-2023 Lymphocytes/100 WBC (Bld) 35.6 % 19-41 [facility] Blood monocytes/100 leukocyt esOrdered By: Dr. Dyer on 05-04-2023 Monocytes/100 WBC (Bld) 9.4 % 0-10 [facility] Blood platelet mean volumeOr dered By: Dr. Dyer on 05-04-2023 Platelet mean volume (Bld) [Entitic vol] 9.4 fL 6.2-12.0 [facility] Determination of erythrocyte mean corpuscular volume (MCV)Ordered By: Dr. Dyer on 05-04-2023 MCV (RBC) [Entitic vol] 98.4 fL 81-99 [facility] Hematocrit Auto (Bld) [Volum e fraction]Ordered By: Dr. Dyer on 05-04-2023 Hematocrit (Bld) [Volume fraction] 36.6 % 37-47 [facility] Laboratory - Chemistry and C hemistry - challengeOrdered By: Dr. Dyer on 05-04-2023 CO2 [Moles/Vol] 27.0 mmol/L 21.0-32.0 [facility] Urea nitrogen/Creatinine [Mass ratio] 19.2 mg/mg 10-20 [facility] Laboratory - Hematology and Cell countsOrdered By: Dr. Dyer on 05-04-2023 Erythrocyte distribution width (RBC) [Entitic vol] 47.8 fL 35.1-43.9 [facility] Erythrocyte distribution width (RBC) [Ratio] 13.3 % 11.6-14.6 [facility] Immature granulocytes/100 WBC (Bld) 0.600 % 0.0-0.9 [facility] Comment on above: IG% - Immature Granu locytes (promyelocytes, myelocytes and metamyelocytes) > 1% indicates that a LEFT SHIFT is Present. MCH (RBC) [Entitic mass] 32.5 pg 27.0-32.0 [facility] Nucleated RBC/100 WBC (Bld) [Ratio] 0 % 0-5 [facility] MCHC Auto (RBC) [Mass/Vol]Or dered By: Dr. Dyer on 05-04-2023 MCHC (RBC) [Mass/Vol] 33.1 g/dL 32-36 [facility] No Panel InformationOrdered By: Dr. Dyer on 05-04-2023 Estimated Creatinine Clearance Calc 83.15 ml/min [facility] Estimated GFR (MDRD) Amer 110 mL/min >60 [facility] Comment on above: GFR Calc Estimated GFR (MDRD) Non-Af Amer 91 mL/min >60 [facility] Comment on above: Non- GFR Calc Platelets bldOrdered By: Dr. Dyer on 05-04-2023 Platelets (Bld) [#/Vol] 274 10*3/uL 150-450 [facility] Serum or plasma calcium alphonso urement (mass/volume)Ordered By: Dr. Dyer on 05-04-2023 Calcium [Mass/Vol] 8.6 mg/dL 8.5-10.1 [facility] Serum or plasma creatinine m easurement (mass/volume)Ordered By: Dr. Dyer on 05-04-2023 Creatinine [Mass/Vol] 0.73 mg/dL 0.55-1.02 [facility] Comment on above: The validity of the calculated GFR & GFRAA in patients over 70 years has not been determined. Clinical correlation is essential. Serum or plasma urea nitroge n measurement (mass/volume)Ordered By: Dr. Dyer on 05-04-2023 Urea nitrogen [Mass/Vol] 14 mg/dL 7-18 [facility] Thin prep Papanicolaou smear with manual screeningOrdered By: Dr. Dyer on 05-04-2023 Thin prep Papanicolaou smear with manual screening 6 5-15 [facility] Laboratory - Microbiology an d Antimicrobial susceptibilityOrdered By: Dr. Jacobs on 04-15-2023 Bacteria identified Cx Nom (Bld) No growth in 5 days. [facility] Absolute lymphocyte countOrd ered By: Dr. Kiran on 04-11-2023 Lymphocytes Auto (Unsp spec) [#/Vol] 2.75 10*3/uL 0.83-4.51 [facility] Basophil percentageOrdered B y: Dr. Kiran on 04-11-2023 Basophils/100 WBC (Bld) 0.3 % 0-1 [facility] [facility] Chloride [Moles/Vol] 105 mmol/L 98-107 [facility] Eosinophils/100 WBC (Bld) 0.7 % 0-5 [facility] Glucose [Mass/Vol] 143 mg/dL 74-106 [facility] Comment on above: Fasting Glucose resu lt greater than or equal to 126 mg/dL suggests DIABETES MELLITUS per A.D.A. criteria. Neutrophils (Bld) [#/Vol] 7.8 10*3/uL 2.0-7.7 [facility] Neutrophils/100 WBC (Bld) 67.1 % 47-70 [facility] Potassium [Moles/Vol] 4.1 mmol/L 3.5-5.1 [facility] Sodium [Moles/Vol] 137 mmol/L 136-145 [facility] WBC (Bld) [#/Vol] 11.6 10*3/uL 4.4-11.0 [facility] Basophil percentageOrdered B y: Dr. Johnson on 04-11-2023 Lactate [Moles/Vol] 0.6 mmol/L 0.4-2.0 [facility] Blood erythrocytes count (nu mber/volume)Ordered By: Dr. Kiran on 04-11-2023 RBC (Bld) [#/Vol] 3.87 10*6/uL 4.2-5.4 [facility] Blood hemoglobin measurement (mass/volume)Ordered By: Dr. Kiran on 04-11-2023 Hemoglobin (Bld) [Mass/Vol] 12.6 g/dL 12.0-15.0 [facility] Blood lymphocytes/100 leukoc ytesOrdered By: Dr. Kiran on 04-11-2023 Lymphocytes/100 WBC (Bld) 23.8 % 19-41 [facility] Blood monocytes/100 leukocyt esOrdered By: Dr. Kiran on 04-11-2023 Monocytes/100 WBC (Bld) 7.8 % 0-10 [facility] Blood platelet mean volumeOr dered By: Dr. Kiran on 04-11-2023 Platelet mean volume (Bld) [Entitic vol] 9.7 fL 6.2-12.0 [facility] Determination of erythrocyte mean corpuscular volume (MCV)Ordered By: Dr. Kiran on 04-11-2023 MCV (RBC) [Entitic vol] 100.5 fL 81-99 [facility] Glucose Glucometer (BldC) [M ass/Vol]Ordered By: Dr. Johnson on 04-11-2023 Glucose [Mass/Vol] 95 mg/dL 74-106 [facility] Comment on above: MANAGEMENT OF PATIEN T CARE PER NURSING PROTOCOL Hematocrit Auto (Bld) [Volum e fraction]Ordered By: Dr. Kiran on 04-11-2023 Hematocrit (Bld) [Volume fraction] 38.9 % 37-47 [facility] Laboratory - Chemistry and C hemistry - challengeOrdered By: Dr. Kiran on 04-11-2023 CO2 [Moles/Vol] 24.0 mmol/L 21.0-32.0 [facility] Urea nitrogen/Creatinine [Mass ratio] 23.2 mg/mg 10-20 [facility] Laboratory - Hematology and Cell countsOrdered By: Dr. Kiran on 04-11-2023 Erythrocyte distribution width (RBC) [Entitic vol] 47.8 fL 35.1-43.9 [facility] Erythrocyte distribution width (RBC) [Ratio] 13.1 % 11.6-14.6 [facility] Immature granulocytes/100 WBC (Bld) 0.300 % 0.0-0.9 [facility] Comment on above: IG% - Immature Granu locytes (promyelocytes, myelocytes and metamyelocytes) > 1% indicates that a LEFT SHIFT is Present. MCH (RBC) [Entitic mass] 32.6 pg 27.0-32.0 [facility] Nucleated RBC/100 WBC (Bld) [Ratio] 0 % 0-5 [facility] MCHC Auto (RBC) [Mass/Vol]Or dered By: Dr. Kiran on 04-11-2023 MCHC (RBC) [Mass/Vol] 32.4 g/dL 32-36 [facility] No Panel InformationOrdered By: Dr. Kiran on 04-11-2023 Estimated Creatinine Clearance Calc 74.03 ml/min [facility] Estimated GFR (MDRD) Amer 97 mL/min >60 [facility] Comment on above: GFR Calc Estimated GFR (MDRD) Non-Af Amer 80 mL/min >60 [facility] Comment on above: Non- GFR Calc Platelets bldOrdered By: Dr. Kiran on 04-11-2023 Platelets (Bld) [#/Vol] 246 10*3/uL 150-450 [facility] Serum or plasma calcium alphonso urement (mass/volume)Ordered By: Dr. Kiran on 04-11-2023 Calcium [Mass/Vol] 8.8 mg/dL 8.5-10.1 [facility] Serum or plasma creatinine m easurement (mass/volume)Ordered By: Dr. Kiran on 04-11-2023 Creatinine [Mass/Vol] 0.82 mg/dL 0.55-1.02 [facility] Comment on above: The validity of the calculated GFR & GFRAA in patients over 70 years has not been determined. Clinical correlation is essential. Serum or plasma urea nitroge n measurement (mass/volume)Ordered By: Dr. Kiran on 04-11-2023 Urea nitrogen [Mass/Vol] 19 mg/dL 7-18 [facility] Thin prep Papanicolaou smear with manual screeningOrdered By: Dr. Kiran on 04-11-2023 Thin prep Papanicolaou smear with manual screening 8 5-15 [facility] Basophil percentageOrdered B y: Dr. Jacobs on 04-10-2023 Chloride [Moles/Vol] 110 mmol/L 98-107 [facility] Glucose [Mass/Vol] 160 mg/dL 74-106 [facility] Comment on above: Fasting Glucose resu lt greater than or equal to 126 mg/dL suggests DIABETES MELLITUS per A.D.A. criteria. Lactate [Moles/Vol] 4.2 mmol/L 0.4-2.0 [facility] Comment on above: Critical Result(s) C alled at: 02:41:04 04/10/2023 by: Campos [employer]. Results read back by same. Potassium [Moles/Vol] 4.8 mmol/L 3.5-5.1 [facility] Sodium [Moles/Vol] 140 mmol/L 136-145 [facility] Basophil percentage 0 SEEN /hpf 0-5 [facility] Bilirubin Test strip Ql (U)O rdered By: Dr. Jacobs on 04-10-2023 Bilirubin Ql (U) Negative Negative [facility] HCO3 (BldA) [Moles/Vol]Order ed By: Dr. Jacobs on 04-10-2023 HCO3 (Bld) [Moles/Vol] 20 mmol/L 22-26 [facility] Ketones Test strip Ql (U)Ord ered By: Dr. Jacobs on 04-10-2023 Ketones Ql (U) Negative Negative [facility] Laboratory - Chemistry and C hemistry - challengeOrdered By: Dr. Jacobs on 04-10-2023 CO2 [Moles/Vol] 19.0 mmol/L 21.0-32.0 [facility] Urea nitrogen/Creatinine [Mass ratio] 15.8 mg/mg 10-20 [facility] CO2 [Moles/Vol] 21 mmol/L 23-33 [facility] Laboratory - Microbiology an d Antimicrobial susceptibilityOrdered By: David Jacobs on 04-10-2023 Bacteria identified Cx Nom (Bld) No growth in 5 days. [facility] Mucus LM Ql (Urine sed)Order ed By: Dr. Jacobs on 04-10-2023 Mucus Ql (Urine sed) 0 SEEN /hpf [facility] Nitrite Test strip Ql (U)Ord ered By: Dr. Jacobs on 04-10-2023 Nitrite Ql (U) Negative Negative [facility] No Panel InformationOrdered By: Dr. Jacobs on 04-10-2023 Estimated Creatinine Clearance Calc 60.10 ml/min [facility] Estimated GFR (MDRD) Amer 76 mL/min >60 [facility] Comment on above: GFR Calc Estimated GFR (MDRD) Non-Af Amer 63 mL/min >60 [facility] Comment on above: Non- GFR Calc Troponin I High Sensitivity < 3 pg/mL 3.0-54.0 [facility] Comment on above: Please Note: New Miri t Units and Gender Specific Reference Ranges. For more information see Policy Stat Procedure Aldrich High Sensitivity Troponin (TNIH) and attachments. Bed Mix Venous Bld PCO2 at Pat Temp 40.5 mmHg 41-51 [facility] Blood Gas Specimen Type GELACIO [facility] Oxygen Delivery Device Room Air [facility] Venous Blood Base Excess -7 mmol/L -1.0-3.5 [facility] No Panel InformationOrdered By: Dr. Kiran on 04-10-2023 Troponin I High Sensitivity < 3 pg/mL 3.0-54.0 [facility] Comment on above: Please Note: New [place]i t Units and Gender Specific Reference Ranges. For more information see Policy Stat Procedure Aldrich High Sensitivity Troponin (TNIH) and attachments. PO2 venousOrdered By: Dr. Jose wood on 04-10-2023 Oxygen (BldV) [Partial pressure] 54 mm[Hg] 25-40 [facility] Protein Test strip Ql (U)Ord ered By: Dr. Jacobs on 04-10-2023 Protein Ql (U) Negative Negative [facility] Serum or plasma acetone alphonso urement (mass/volume)Ordered By: Dr. Jacobs on 04-10-2023 Acetone [Mass/Vol] Negative NEG [facility] Serum or plasma calcium alphonso urement (mass/volume)Ordered By: Dr. Jacobs on 04-10-2023 Calcium [Mass/Vol] 7.3 mg/dL 8.5-10.1 [facility] Serum or plasma creatinine m easurement (mass/volume)Ordered By: Dr. Jacobs on 04-10-2023 Creatinine [Mass/Vol] 1.01 mg/dL 0.55-1.02 [facility] Comment on above: The validity of the calculated GFR & GFRAA in patients over 70 years has not been determined. Clinical correlation is essential. Serum or plasma urea nitroge n measurement (mass/volume)Ordered By: Dr. Jacobs on 04-10-2023 Urea nitrogen [Mass/Vol] 16 mg/dL 7-18 [facility] Squamous epithelial cells de tection in urine sediment by light microscopyOrdered By: Dr. Jacobs on 04-10-2023 Epithelial cells.squamous LM Ql (Urine sed) 0 SEEN /hpf 5-10 [facility] Thin prep Papanicolaou smear with manual screeningOrdered By: Dr. Jacobs on 04-10-2023 Thin prep Papanicolaou smear with manual screening 11 -15 [facility] Urine blood detectionOrdered By: Dr. Jacobs on 04-10-2023 RBC Ql (U) Negative Negative [facility] RBC Ql (U) 0 SEEN /hpf 0-5 [facility] Urine clarityOrdered By: Dr. Jacobs on 04-10-2023 Clarity (U) Clear Clear [facility] Urine color determinationOrd ered By: Dr. Jacobs on 04-10-2023 Color (U) Yellow Yellow [facility] Urine glucose detectionOrder ed By: Dr. Jacobs on 04-10-2023 Glucose Ql (U) 1000 mg/dl Normal [facility] Urine leukocyte esterase det ection by dipstickOrdered By: Dr. Jacobs on 04-10-2023 Leukocyte esterase Test strip Ql (U) Negative Negative [facility] Urine pHOrdered By: Dr. Caren garza on 04-10-2023 pH (U) 6.5 [pH] 5.0 - 8.0 [facility] Urine sediment bacteria coun t by microscopy (number/high power field)Ordered By: Dr. Jacobs on 04-10-2023 Bacteria LM.HPF (Urine sed) [#/Area] 0 /[HPF] None Seen [facility] Urine specific gravity measu rementOrdered By: Dr. Jacobs on 04-10-2023 Specific gravity (U) [Rel density] 1.010 1.002-1.030 [facility] Urobilinogen Auto test strip Ql (U)Ordered By: Dr. Jacobs on 04-10-2023 Urobilinogen Ql (U) Normal mg/dl Normal [facility] Vital signsOrdered By: Dr. eDl mackay on 04-10-2023 Oxygen saturation in Blood 84 % 50-70 [facility] pH measurementOrdered By: Dr Jael Jacobs on 04-10-2023 pH (Unsp spec) 7.29 [pH] 7.32-7.42 [facility] Absolute lymphocyte countOrd ered By: Dr. Jacobs on 04-09-2023 Lymphocytes Auto (Unsp spec) [#/Vol] 0.91 10*3/uL 0.83-4.51 [facility] Basophil percentageOrdered B y: Dr. Jacobs on 04-09-2023 Basophils/100 WBC (Bld) 0.2 % 0-1 [facility] Eosinophils/100 WBC (Bld) 0.4 % 0-5 [facility] Neutrophils (Bld) [#/Vol] 6.8 10*3/uL 2.0-7.7 [facility] Neutrophils/100 WBC (Bld) 85.1 % 47-70 [facility] WBC (Bld) [#/Vol] 8.0 10*3/uL 4.4-11.0 [facility] Blood erythrocytes count (nu mber/volume)Ordered By: Dr. Jacobs on 04-09-2023 RBC (Bld) [#/Vol] 3.87 10*6/uL 4.2-5.4 [facility] Blood hemoglobin measurement (mass/volume)Ordered By: Dr. Jacobs on 04-09-2023 Hemoglobin (Bld) [Mass/Vol] 12.5 g/dL 12.0-15.0 [facility] Blood lymphocytes/100 leukoc ytesOrdered By: Dr. Jacobs on 04-09-2023 Lymphocytes/100 WBC (Bld) 11.3 % 19-41 [facility] Blood monocytes/100 leukocyt esOrdered By: Dr. Jacobs on 04-09-2023 Monocytes/100 WBC (Bld) 1.6 % 0-10 [facility] Blood platelet mean volumeOr dered By: Dr. Jacobs on 04-09-2023 Platelet mean volume (Bld) [Entitic vol] 10.0 fL 6.2-12.0 [facility] Determination of erythrocyte mean corpuscular volume (MCV)Ordered By: Dr. Jacobs on 04-09-2023 MCV (RBC) [Entitic vol] 99.5 fL 81-99 [facility] Hematocrit Auto (Bld) [Volum e fraction]Ordered By: Dr. Jacobs on 04-09-2023 Hematocrit (Bld) [Volume fraction] 38.5 % 37-47 [facility] Laboratory - Hematology and Cell countsOrdered By: Dr. Jacobs on 04-09-2023 Erythrocyte distribution width (RBC) [Entitic vol] 47.4 fL 35.1-43.9 [facility] Erythrocyte distribution width (RBC) [Ratio] 13.0 % 11.6-14.6 [facility] Immature granulocytes/100 WBC (Bld) 1.400 % 0.0-0.9 [facility] Comment on above: IG% - Immature Granu locytes (promyelocytes, myelocytes and metamyelocytes) > 1% indicates that a LEFT SHIFT is Present. MCH (RBC) [Entitic mass] 32.3 pg 27.0-32.0 [facility] Nucleated RBC/100 WBC (Bld) [Ratio] 0 % 0-5 [facility] MCHC Auto (RBC) [Mass/Vol]Or dered By: Dr. Jacobs on 04-09-2023 MCHC (RBC) [Mass/Vol] 32.5 g/dL 32-36 [facility] No Panel InformationOrdered By: Dr. Jacobs on 04-09-2023 D-Dimer Quantitative (PE/DVT) < 0.27 FEU/ug/m 0.27-0.49 [facility] Comment on above: NORMAL D-Dimer level (<0.50) indicates no DVT or PE. Platelets bldOrdered By: Dr. Jacobs on 04-09-2023 Platelets (Bld) [#/Vol] 298 10*3/uL 150-450 [facility] Absolute lymphocyte countOrd ered By: Dr. Gaviria on 03-22-2023 Lymphocytes Auto (Unsp spec) [#/Vol] 2.49 10*3/uL 0.83-4.51 [facility] Amorphous sediment detection in urine sediment by light microscopyOrdered By: Dr. Gaviria on 03-22-2023 Amorphous sediment LM Ql (Urine sed) 1+ URATE [facility] Basophil percentageOrdered B y: Dr. Gaviria on 03-22-2023 Basophil percentage 5-10 SEEN /hpf 0-5 [facility] Basophils/100 WBC (Bld) 0.5 % 0-1 [facility] Bilirubin [Mass/Vol] 0.30 mg/dL 0.20-1.00 [facility] Comment on above: For patients on eltr ombopag therapy, use of Dimension Aldrich TBIL is not recommended. Chloride [Moles/Vol] 105 mmol/L 98-107 [facility] Eosinophils/100 WBC (Bld) 2.0 % 0-5 [facility] Glucose [Mass/Vol] 146 mg/dL 74-106 [facility] Comment on above: Fasting Glucose resu lt greater than or equal to 126 mg/dL suggests DIABETES MELLITUS per A.D.A. criteria. Lactate [Moles/Vol] 1.4 mmol/L 0.4-2.0 [facility] Neutrophils (Bld) [#/Vol] 7.1 10*3/uL 2.0-7.7 [facility] Neutrophils/100 WBC (Bld) 64.4 % 47-70 [facility] Potassium [Moles/Vol] 4.4 mmol/L 3.5-5.1 [facility] Protein [Mass/Vol] 7.7 g/dL 6.4-8.2 [facility] Sodium [Moles/Vol] 133 mmol/L 136-145 [facility] WBC (Bld) [#/Vol] 11.0 10*3/uL 4.4-11.0 [facility] Bilirubin Test strip Ql (U)O rdered By: Dr. Gaviria on 03-22-2023 Bilirubin Ql (U) Negative Negative [facility] Blood erythrocytes count (nu mber/volume)Ordered By: Dr. Gaviria on 03-22-2023 RBC (Bld) [#/Vol] 4.25 10*6/uL 4.2-5.4 [facility] Blood hemoglobin measurement (mass/volume)Ordered By: Dr. Gaviria on 03-22-2023 Hemoglobin (Bld) [Mass/Vol] 13.6 g/dL 12.0-15.0 [facility] Blood lymphocytes/100 leukoc ytesOrdered By: Dr. Gaviria on 03-22-2023 Lymphocytes/100 WBC (Bld) 22.7 % 19-41 [facility] Blood monocytes/100 leukocyt esOrdered By: Dr. Gaviria on 03-22-2023 Monocytes/100 WBC (Bld) 9.9 % 0-10 [facility] Blood platelet mean volumeOr dered By: Dr. Gaviria on 03-22-2023 Platelet mean volume (Bld) [Entitic vol] 9.7 fL 6.2-12.0 [facility] Determination of erythrocyte mean corpuscular volume (MCV)Ordered By: Dr. Gaviria on 03-22-2023 MCV (RBC) [Entitic vol] 97.6 fL 81-99 [facility] Hematocrit Auto (Bld) [Volum e fraction]Ordered By: Dr. Gaviria on 03-22-2023 Hematocrit (Bld) [Volume fraction] 41.5 % 37-47 [facility] Ketones Test strip Ql (U)Ord ered By: Dr. Gaviria on 03-22-2023 Ketones Ql (U) Negative Negative [facility] Laboratory - Chemistry and C hemistry - challengeOrdered By: Dr. Gaviria on 03-22-2023 ALP [Catalytic activity/Vol] 71 U/L 45-117 [facility] ALT [Catalytic activity/Vol] 33 U/L 13-56 [facility] CO2 [Moles/Vol] 24.0 mmol/L 21.0-32.0 [facility] Globulin (S) [Mass/Vol] 3.7 g/dL 2.2-4.2 [facility] Urea nitrogen/Creatinine [Mass ratio] 10.8 mg/mg 10-20 [facility] Laboratory - Hematology and Cell countsOrdered By: Dr. Gaviria on 03-22-2023 Erythrocyte distribution width (RBC) [Entitic vol] 46.9 fL 35.1-43.9 [facility] Erythrocyte distribution width (RBC) [Ratio] 13.1 % 11.6-14.6 [facility] Immature granulocytes/100 WBC (Bld) 0.500 % 0.0-0.9 [facility] Comment on above: IG% - Immature Granu locytes (promyelocytes, myelocytes and metamyelocytes) > 1% indicates that a LEFT SHIFT is Present. MCH (RBC) [Entitic mass] 32.0 pg 27.0-32.0 [facility] Nucleated RBC/100 WBC (Bld) [Ratio] 0 % 0-5 [facility] MCHC Auto (RBC) [Mass/Vol]Or dered By: Dr. Gaviria on 03-22-2023 MCHC (RBC) [Mass/Vol] 32.8 g/dL 32-36 [facility] Mucus LM Ql (Urine sed)Order ed By: Dr. Gaviria on 03-22-2023 Mucus Ql (Urine sed) 0 SEEN /hpf [facility] Nitrite Test strip Ql (U)Ord ered By: Dr. Gaviria on 03-22-2023 Nitrite Ql (U) Negative Negative [facility] No Panel InformationOrdered By: Dr. Gaviria on 03-22-2023 Estimated Creatinine Clearance Calc 36.74 ml/min [facility] Estimated GFR (MDRD) Amer 43 mL/min >60 [facility] Comment on above: GFR Calc Estimated GFR (MDRD) Non-Af Amer 35 mL/min >60 [facility] Comment on above: Non- GFR Calc Platelets bldOrdered By: Dr. Gaviria on 03-22-2023 Platelets (Bld) [#/Vol] 316 10*3/uL 150-450 [facility] Protein Test strip Ql (U)Ord ered By: Dr. Gaviria on 03-22-2023 Protein Ql (U) Negative Negative [facility] Serum or plasma albumin alphonso urement (mass/volume)Ordered By: Dr. Gaviria on 03-22-2023 Albumin [Mass/Vol] 4.0 g/dL 3.2-5.0 [facility] Serum or plasma albumin/glob ulin mass ratioOrdered By: Dr. Gaviria on 03-22-2023 Albumin/Globulin [Mass ratio] 1.1 {ratio} 0.9-2.4 [facility] Serum or plasma calcium alphonso urement (mass/volume)Ordered By: Dr. Gaviria on 03-22-2023 Calcium [Mass/Vol] 8.9 mg/dL 8.5-10.1 [facility] Serum or plasma creatinine m easurement (mass/volume)Ordered By: Dr. Gaviria on 03-22-2023 Creatinine [Mass/Vol] 1.67 mg/dL 0.55-1.02 [facility] Comment on above: The validity of the calculated GFR & GFRAA in patients over 70 years has not been determined. Clinical correlation is essential. Serum or plasma urea nitroge n measurement (mass/volume)Ordered By: Dr. Gaviria on 03-22-2023 Urea nitrogen [Mass/Vol] 18 mg/dL 7-18 [facility] Squamous epithelial cells de tection in urine sediment by light microscopyOrdered By: Dr. Gaviria on 03-22-2023 Epithelial cells.squamous LM Ql (Urine sed) 0-5 SEEN /hpf 5-10 [facility] Thin prep Papanicolaou smear with manual screeningOrdered By: Dr. Gaviria on 03-22-2023 Thin prep Papanicolaou smear with manual screening 20 U/L 15-37 [facility] Thin prep Papanicolaou smear with manual screening 4 5-15 [facility] Urine blood detectionOrdered By: Dr. Gaviria on 03-22-2023 RBC Ql (U) Negative Negative [facility] RBC Ql (U) 0 SEEN /hpf 0-5 [facility] Urine clarityOrdered By: Dr. Gaviria on 03-22-2023 Clarity (U) Sl. Cloudy Clear [facility] Urine color determinationOrd ered By: Dr. Gaviria on 03-22-2023 Color (U) Yellow Yellow [facility] Urine glucose detectionOrder ed By: Dr. Gaviria on 03-22-2023 Glucose Ql (U) 1000 mg/dl Normal [facility] Urine leukocyte esterase det ection by dipstickOrdered By: Dr. Gaviria on 03-22-2023 Leukocyte esterase Test strip Ql (U) 100 /ul Negative [facility] Urine pHOrdered By: Dr. Shae ruelas on 03-22-2023 pH (U) 6.5 [pH] 5.0 - 8.0 [facility] Urine sediment bacteria coun t by microscopy (number/high power field)Ordered By: Dr. Gaviria on 03-22-2023 Bacteria LM.HPF (Urine sed) [#/Area] 0 /[HPF] None Seen [facility] Urine specific gravity measu rementOrdered By: Dr. Gaviria on 03-22-2023 Specific gravity (U) [Rel density] 1.005 1.002-1.030 [facility] Urobilinogen Auto test strip Ql (U)Ordered By: Dr. Gaviria on 03-22-2023 Urobilinogen Ql (U) Normal mg/dl Normal [facility] Laboratory - Microbiology an d Antimicrobial susceptibilityon 02-12-2023 SARS-CoV-2 (COVID-19) RNA ALLEY+probe Ql (Unsp spec) Not detected [facility] No Panel Informationon 02-12 Influenza Types A,B Rapid (Clinic) Not detected [facility] Absolute lymphocyte countOrd ered By: Dr. Jacobs on 01-21-2023 Lymphocytes Auto (Unsp spec) [#/Vol] 2.33 10*3/uL 0.83-4.51 [facility] Basophil percentageOrdered B y: Dr. Jacobs on 01-21-2023 Basophils/100 WBC (Bld) 0.5 % 0-1 [facility] Chloride [Moles/Vol] 103 mmol/L 98-107 [facility] Eosinophils/100 WBC (Bld) 2.6 % 0-5 [facility] Glucose [Mass/Vol] 262 mg/dL 74-106 [facility] Comment on above: Glucose result great er than or equal to 200 mg/dLsuggests DIABETES MELLITUS per A.D.A. criteria. Neutrophils (Bld) [#/Vol] 4.7 10*3/uL 2.0-7.7 [facility] Neutrophils/100 WBC (Bld) 59.7 % 47-70 [facility] Potassium [Moles/Vol] 3.6 mmol/L 3.5-5.1 [facility] Sodium [Moles/Vol] 138 mmol/L 136-145 [facility] WBC (Bld) [#/Vol] 7.9 10*3/uL 4.4-11.0 [facility] Blood erythrocytes count (nu mber/volume)Ordered By: Dr. Jacobs on 01-21-2023 RBC (Bld) [#/Vol] 4.32 10*6/uL 4.2-5.4 [facility] Blood hemoglobin measurement (mass/volume)Ordered By: Dr. Jacobs on 01-21-2023 Hemoglobin (Bld) [Mass/Vol] 13.8 g/dL 12.0-15.0 [facility] Blood lymphocytes/100 leukoc ytesOrdered By: Dr. Jacobs on 01-21-2023 Lymphocytes/100 WBC (Bld) 29.3 % 19-41 [facility] Blood monocytes/100 leukocyt esOrdered By: Dr. Jacobs on 01-21-2023 Monocytes/100 WBC (Bld) 7.6 % 0-10 [facility] Blood platelet mean volumeOr dered By: Dr. Jacobs on 01-21-2023 Platelet mean volume (Bld) [Entitic vol] 9.8 fL 6.2-12.0 [facility] Determination of erythrocyte mean corpuscular volume (MCV)Ordered By: Dr. Jacobs on 01-21-2023 MCV (RBC) [Entitic vol] 95.8 fL 81-99 [facility] Hematocrit Auto (Bld) [Volum e fraction]Ordered By: Dr. Jacobs on 01-21-2023 Hematocrit (Bld) [Volume fraction] 41.4 % 37-47 [facility] Laboratory - Chemistry and C hemistry - challengeOrdered By: Dr. Jacobs on 01-21-2023 CO2 [Moles/Vol] 27.0 mmol/L 21.0-32.0 [facility] Urea nitrogen/Creatinine [Mass ratio] 11.8 mg/mg 10-20 [facility] Laboratory - Hematology and Cell countsOrdered By: Dr. Jacobs on 01-21-2023 Erythrocyte distribution width (RBC) [Entitic vol] 44.4 fL 35.1-43.9 [facility] Erythrocyte distribution width (RBC) [Ratio] 12.7 % 11.6-14.6 [facility] Immature granulocytes/100 WBC (Bld) 0.300 % 0.0-0.9 [facility] Comment on above: IG% - Immature Granu locytes (promyelocytes, myelocytes and metamyelocytes) > 1% indicates that a LEFT SHIFT is Present. MCH (RBC) [Entitic mass] 31.9 pg 27.0-32.0 [facility] Nucleated RBC/100 WBC (Bld) [Ratio] 0 % 0-5 [facility] MCHC Auto (RBC) [Mass/Vol]Or dered By: Dr. Jacobs on 01-21-2023 MCHC (RBC) [Mass/Vol] 33.3 g/dL 32-36 [facility] No Panel InformationOrdered By: Dr. Jacobs on 01-21-2023 Troponin I High Sensitivity < 3 pg/mL 3.0-54.0 [facility] Comment on above: Please Note: New Miri t Units and Gender Specific Reference Ranges. For more information see Policy Stat Procedure Aldrich High Sensitivity Troponin (TNIH) and attachments. D-Dimer Quantitative (PE/DVT) < 0.27 FEU/ug/m 0.27-0.49 [facility] Comment on above: NORMAL D-Dimer level (<0.50) indicates no DVT or PE. Estimated Creatinine Clearance Calc 65.97 ml/min [facility] Estimated GFR (MDRD) Amer 83 mL/min >60 [facility] Comment on above: GFR Calc Estimated GFR (MDRD) Non-Af Amer 69 mL/min >60 [facility] Comment on above: Non- GFR Calc Platelets bldOrdered By: Dr. Jacobs on 01-21-2023 Platelets (Bld) [#/Vol] 314 10*3/uL 150-450 [facility] Serum or plasma calcium alphonso urement (mass/volume)Ordered By: Dr. Jacobs on 01-21-2023 Calcium [Mass/Vol] 8.9 mg/dL 8.5-10.1 [facility] Serum or plasma creatinine m easurement (mass/volume)Ordered By: Dr. Jacobs on 01-21-2023 Creatinine [Mass/Vol] 0.93 mg/dL 0.55-1.02 [facility] Comment on above: The validity of the calculated GFR & GFRAA in patients over 70 years has not been determined. Clinical correlation is essential. Serum or plasma urea nitroge n measurement (mass/volume)Ordered By: Dr. Jacobs on 01-21-2023 Urea nitrogen [Mass/Vol] 11 mg/dL 7-18 [facility] Thin prep Papanicolaou smear with manual screeningOrdered By: Dr. Jacobs on 01-21-2023 Thin prep Papanicolaou smear with manual screening 8 5-15 [facility] Absolute lymphocyte countOrd ered By: Dr. Kay on 11-19-2022 Lymphocytes Auto (Unsp spec) [#/Vol] 2.69 10*3/uL 0.83-4.51 [facility] Basophil percentageOrdered B y: Dr. Kay on 11-19-2022 Basophils/100 WBC (Bld) 0.4 % 0-1 [facility] Chloride [Moles/Vol] 104 mmol/L 98-107 [facility] Eosinophils/100 WBC (Bld) 2.4 % 0-5 [facility] Glucose [Mass/Vol] 194 mg/dL 74-106 [facility] Comment on above: Fasting Glucose resu lt greater than or equal to 126 mg/dL suggests DIABETES MELLITUS per A.D.A. criteria. Neutrophils (Bld) [#/Vol] 1.7 10*3/uL 2.0-7.7 [facility] Neutrophils/100 WBC (Bld) 33.7 % 47-70 [facility] Potassium [Moles/Vol] 3.4 mmol/L 3.5-5.1 [facility] Sodium [Moles/Vol] 138 mmol/L 136-145 [facility] WBC (Bld) [#/Vol] 5.1 10*3/uL 4.4-11.0 [facility] Basophil percentageOrdered B y: Dr. Piña on 11-19-2022 Cholesterol [Mass/Vol] 144 mg/dL <200 [facility] Comment on above: <200 mg/dL Desirable 200-240 mg/dL Borderline >240 mg/dL High Risk Triglyceride [Mass/Vol] 227 mg/dL <199 [facility] Comment on above: The drugs N-Acetylcy steine and Metamizole may falsely depress this assay.Serum Triglycerides Reference Interval Normal <150 mg/dL Borderline high 150 - 199 mg/dL High 200 - 499 mg/dL Very High > or = 500 mg/dL Beta hCG serum qualOrdered B y: Dr. Piña on 11-19-2022 Beta HCG ( test) Ql Negative [facility] Blood erythrocytes count (nu mber/volume)Ordered By: Dr. Kay on 11-19-2022 RBC (Bld) [#/Vol] 3.74 10*6/uL 4.2-5.4 [facility] Blood hemoglobin measurement (mass/volume)Ordered By: Dr. Kay on 11-19-2022 Hemoglobin (Bld) [Mass/Vol] 12.0 g/dL 12.0-15.0 [facility] Blood lymphocytes/100 leukoc ytesOrdered By: Dr. Kay on 11-19-2022 Lymphocytes/100 WBC (Bld) 52.7 % 19-41 [facility] Blood monocytes/100 leukocyt esOrdered By: Dr. Kay on 11-19-2022 Monocytes/100 WBC (Bld) 10.6 % 0-10 [facility] Blood platelet mean volumeOr dered By: Dr. Kay on 11-19-2022 Platelet mean volume (Bld) [Entitic vol] 9.5 fL 6.2-12.0 [facility] Determination of erythrocyte mean corpuscular volume (MCV)Ordered By: Dr. Kay on 11-19-2022 MCV (RBC) [Entitic vol] 92.2 fL 81-99 [facility] Glucose Glucometer (dC) [M ass/Vol]Ordered By: Dr. Kay on 11-19-2022 Glucose [Mass/Vol] 295 mg/dL 74-106 [facility] Comment on above: MANAGEMENT OF PATIEN T CARE PER NURSING PROTOCOL Hematocrit Auto (Bld) [Volum e fraction]Ordered By: Dr. Kay on 11-19-2022 Hematocrit (Bld) [Volume fraction] 34.5 % 37-47 [facility] Laboratory - Chemistry and C hemistry - challengeOrdered By: Dr. Kay on 11-19-2022 CO2 [Moles/Vol] 28.0 mmol/L 21.0-32.0 [facility] Urea nitrogen/Creatinine [Mass ratio] 14.3 mg/mg 10-20 [facility] Laboratory - CoagulationOrde red By: Dr. Tavares on 11-19-2022 aPTT Coag (Bld) [Time] 63.5 s 24.1-36.2 [facility] Laboratory - Hematology and Cell countsOrdered By: Dr. Kay on 11-19-2022 Erythrocyte distribution width (RBC) [Entitic vol] 41.3 fL 35.1-43.9 [facility] Erythrocyte distribution width (RBC) [Ratio] 12.2 % 11.6-14.6 [facility] Immature granulocytes/100 WBC (Bld) 0.200 % 0.0-0.9 [facility] Comment on above: IG% - Immature Granu locytes (promyelocytes, myelocytes and metamyelocytes) > 1% indicates that a LEFT SHIFT is Present. MCH (RBC) [Entitic mass] 32.1 pg 27.0-32.0 [facility] Nucleated RBC/100 WBC (Bld) [Ratio] 0 % 0-5 [facility] MCHC Auto (RBC) [Mass/Vol]Or dered By: Dr. Kay on 11-19-2022 MCHC (RBC) [Mass/Vol] 34.8 g/dL 32-36 [facility] No Panel InformationOrdered By: Dr. Kay on 11-19-2022 Estimated Creatinine Clearance Calc 97.38 ml/min [facility] Estimated GFR (MDRD) Amer 131 mL/min >60 [facility] Comment on above: GFR Calc Estimated GFR (MDRD) Non-Af Amer 108 mL/min >60 [facility] Comment on above: Non- GFR Calc No Panel InformationOrdered By: Dr. Piña on 11-19-2022 Troponin I High Sensitivity 307 pg/mL 3.0-54.0 [facility] Comment on above: Critical Result(s) C alled at: 04:53:08 11/19/2022 by: Kannan BRAUN RN ([facility]) Results read back by same. Please Note: New Test Units and Gender Specific Reference Ranges. For more information see Policy Stat Procedure Aldrich High Sensitivity Troponin (TNIH) and attachments. Platelets bldOrdered By: Dr. Kay on 11-19-2022 Platelets (Bld) [#/Vol] 194 10*3/uL 150-450 [facility] Serum or plasma calcium alphonso urement (mass/volume)Ordered By: Dr. Kay on 11-19-2022 Calcium [Mass/Vol] 7.7 mg/dL 8.5-10.1 [facility] Serum or plasma cholesterol in HDL measurement (mass/volume)Ordered By: Dr. Piña on 11-19-2022 Cholesterol in HDL [Mass/Vol] 42 mg/dL >40 [facility] Comment on above: The drugs N-Acetylcy steine and Metamizole may falsely depress this assay. Reference Range HDL <40 mg/dL Low HDL Cholesterol HDL >or= 60 mg/dL High HDL Cholesterol Serum or plasma cholesterol in VLDL measurement (mass/volume)Ordered By: Dr. Piña on 11-19-2022 Cholesterol in VLDL [Mass/Vol] 45 mg/dL 5-40 [facility] Serum or plasma creatinine m easurement (mass/volume)Ordered By: Dr. Kay on 11-19-2022 Creatinine [Mass/Vol] 0.63 mg/dL 0.55-1.02 [facility] Comment on above: The validity of the calculated GFR & GFRAA in patients over 70 years has not been determined. Clinical correlation is essential. Serum or plasma low density lipoprotein (LDL) cholesterol measurement (mass/volume)Ordered By: Dr. Piña on 11-19-2022 Cholesterol in LDL [Mass/Vol] 57 mg/dL 0-130 [facility] Serum or plasma urea nitroge n measurement (mass/volume)Ordered By: Dr. Kay on 11-19-2022 Urea nitrogen [Mass/Vol] 9 mg/dL 7-18 [facility] Thin prep Papanicolaou smear with manual screeningOrdered By: Dr. Kay on 11-19-2022 Thin prep Papanicolaou smear with manual screening 6 5-15 [facility] Basophil percentageOrdered B y: Dr. Piña on 11-18-2022 Bilirubin [Mass/Vol] 0.50 mg/dL 0.20-1.00 [facility] Comment on above: For patients on eltr ombopag therapy, use of Dimension Aldrich TBIL is not recommended. Protein [Mass/Vol] 7.4 g/dL 6.4-8.2 [facility] Direct bilirubinOrdered By: Dr. Piña on 11-18-2022 Bilirubin.direct [Mass/Vol] 0.13 mg/dL 0.00-0.30 [facility] INR in Blood by Coagulation assayOrdered By: Dr. Tavares on 11-18-2022 INR Coag (Bld) [Relative time] 1.0 {INR} [facility] Laboratory - Chemistry and C hemistry - challengeOrdered By: Dr. Piña on 11-18-2022 ALP [Catalytic activity/Vol] 82 U/L 45-117 [facility] ALT [Catalytic activity/Vol] 33 U/L 13-56 [facility] Globulin (S) [Mass/Vol] 4.0 g/dL 2.2-4.2 [facility] Laboratory - CoagulationOrde red By: Dr. Tavares on 11-18-2022 PT Coag (PPP) [Time] 12.9 s 11.7-14.9 [facility] No Panel InformationOrdered By: Dr. Tavares on 11-18-2022 D-Dimer Quantitative (PE/DVT) 0.40 FEU/ug/m 0.27-0.49 [facility] Comment on above: NORMAL D-Dimer level (<0.50) indicates no DVT or PE. Serum or plasma albumin alphonso urement (mass/volume)Ordered By: Dr. Piña on 11-18-2022 Albumin [Mass/Vol] 3.4 g/dL 3.2-5.0 [facility] Thin prep Papanicolaou smear with manual screeningOrdered By: Dr. Piña on 11-18-2022 Thin prep Papanicolaou smear with manual screening 26 U/L 15-37 [facility] Absolute lymphocyte counton 09-05-2022 Lymphocytes Auto (Unsp spec) [#/Vol] 3.03 10*3/uL 0.83-4.51 [facility] Work Phone: Basophil percentageon 2021 Basophils/100 WBC (Bld) 0.5 % 0-1 [facility] Work Phone: Chloride [Moles/Vol] 105 mmol/L 98-107 [facility] Work Phone: Eosinophils/100 WBC (Bld) 3.3 % 0-5 [facility] Work Phone: Glucose [Mass/Vol] 246 mg/dL 74-106 [facility] Work Phone: Comment on above: Glucose result great er than or equal to 200 mg/dLsuggests DIABETES MELLITUS per A.D.A. criteria. Neutrophils (Bld) [#/Vol] 3.8 10*3/uL 2.0-7.7 [facility] Work Phone: Neutrophils/100 WBC (Bld) 48.3 % 47-70 [facility] Work Phone: Potassium [Moles/Vol] 3.6 mmol/L 3.5-5.1 [facility] Work Phone: Sodium [Moles/Vol] 142 mmol/L 136-145 [facility] Work Phone: WBC (Bld) [#/Vol] 7.8 10*3/uL 4.4-11.0 [facility] Work Phone: Blood erythrocytes count (nu mber/volume)on 09-05-2022 RBC (Bld) [#/Vol] 4.17 10*6/uL 4.2-5.4 [facility]: Blood hemoglobin measurement (mass/volume)on 09-05-2022 Hemoglobin (Bld) [Mass/Vol] 13.1 g/dL 12.0-15.0 [facility] Work Phone: Blood lymphocytes/100 leukoc yteson 09-05-2022 Lymphocytes/100 WBC (Bld) 39.0 % 19-41 [facility] Work Phone: Blood monocytes/100 leukocyt eson 09-05-2022 Monocytes/100 WBC (Bld) 8.5 % 0-10 [facility] Work Phone: Blood platelet mean volumeon 09-05-2022 Platelet mean volume (Bld) [Entitic vol] 9.6 fL 6.2-12.0 [facility] Work Phone: Determination of erythrocyte mean corpuscular volume (MCV)on 09-05-2022 MCV (RBC) [Entitic vol] 92.1 fL 81-99 [facility] Work Phone: Hematocrit Auto (Bld) [Volum e fraction]on 09-05-2022 Hematocrit (Bld) [Volume fraction] 38.4 % 37-47 [facility] Work Phone: Laboratory - Chemistry and C hemistry - challengeon 09-05-2022 CO2 [Moles/Vol] 27.0 mmol/L 21.0-32.0 [facility] Work Phone: Urea nitrogen/Creatinine [Mass ratio] 16.7 mg/mg 10-20 [facility] Work Phone: Laboratory - Hematology and Cell countson 09-05-2022 Erythrocyte distribution width (RBC) [Entitic vol] 42.3 fL 35.1-43.9 [facility] Work Phone: Erythrocyte distribution width (RBC) [Ratio] 12.7 % 11.6-14.6 [facility] Work Phone: Immature granulocytes/100 WBC (Bld) 0.400 % 0.0-0.9 [facility] Work Phone: Comment on above: IG% - Immature Granu locytes (promyelocytes, myelocytes and metamyelocytes) > 1% indicates that a LEFT SHIFT is Present. MCH (RBC) [Entitic mass] 31.4 pg 27.0-32.0 [facility] Work Phone: Nucleated RBC/100 WBC (Bld) [Ratio] 0 % 0-5 [facility] Work Phone: MCHC Auto (RBC) [Mass/Vol]on 09-05-2022 MCHC (RBC) [Mass/Vol] 34.1 g/dL 32-36 [facility] Work Phone: No Panel Informationon 09-05 Estimated Creatinine Clearance Calc 78.65 ml/min [facility] Work Phone: Estimated GFR (MDRD) Amer 103 mL/min >60 [facility] Work Phone: Comment on above: GFR Calc Estimated GFR (MDRD) Non-Af Amer 85 mL/min >60 [facility] Work Phone: Comment on above: Non- GFR Calc Ethyl Alcohol Level 237.0 mg/dL [facility] Work Phone: Comment on above: The serum:whole bloo d ethanol ratio is approximately 1.14and varies slightly with hematocrit. Medical Alcohol reference interval and critical value innon-tolerant individuals; 50 - 100 Impairment 100 Intoxication 100 - 250 Severe Poisoning 250 - 400 Deep/possible fatal coma Platelets bldon 09-05-2022 Platelets (Bld) [#/Vol] 318 10*3/uL 150-450 [facility] Work Phone: Serum or plasma calcium alphonso urement (mass/volume)on 09-05-2022 Calcium [Mass/Vol] 8.8 mg/dL 8.5-10.1 [facility] Work Phone: Serum or plasma creatinine m easurement (mass/volume)on 09-05-2022 Creatinine [Mass/Vol] 0.78 mg/dL 0.55-1.02 [facility] Work Phone: Comment on above: The validity of the calculated GFR & GFRAA in patients over 70 years has not been determined. Clinical correlation is essential. Serum or plasma urea nitroge n measurement (mass/volume)on 09-05-2022 Urea nitrogen [Mass/Vol] 13 mg/dL 7-18 [facility] Work Phone: Thin prep Papanicolaou smear with manual screeningon 09-05-2022 Thin prep Papanicolaou smear with manual screening 10 5-15 [facility] Work Phone: XR HIP GENERAL 3V PELV/AP/LA T LEFTon 07-21-2022 [facility] XR Pelvis and Hip - left AP and Lateral frogon 07-21-2022 IMPRESSION: Negative pelvis and left hip. Flavor Maker: [email or web address] Transcribe Date/Time: Jul 21 2022 7:27P Dictated by : BETINA MAGANA MD This examination was interpreted and the report reviewed and electronically signed by: BETINA MAGANA MD on Jul 21 2022 7:29PM [facility] DIVISION OF RADIOLOGY * * [...] or dislocation. DIVISION OF RADIOLOGY Provider, Blank goode [place] - 07/21/2022 * * *Final Report* * [...] IMPRESSION IMPRESSION: Negative pelvis and left hip. Flavor Maker: [email or web address] Transcribe Date/Time: Jul 21 2022 7:27P Dictated by : BETINA MAGANA MD This examination was interpreted and the report reviewed and electronically signed by: BETINA MAGANA MD on Jul 21 2022 7:29PM EST [facility] Radiology Study observation (narrative) Aric zhang [facility] XR Pelvis and Hip - left AP and Lateral frogOrdered By: [facility] Provider on 07-21-2022 [facility] Laboratory - Microbiology an d Antimicrobial susceptibilityon 05-31-2022 SARS-CoV-2 (COVID-19) RNA ALLEY+probe Ql (Unsp spec) Not detected [facility] Work Phone: Absolute lymphocyte counton 02-22-2022 Lymphocytes Auto (Unsp spec) [#/Vol] 2.29 10*3/uL 0.83-4.51 [facility] Work Phone: Basophil percentageon 2021 Basophils/100 WBC (Bld) 0.6 % 0-1 [facility] Work Phone: Chloride [Moles/Vol] 103 mmol/L 98-107 [facility] Work [facility]: Eosinophils/100 WBC (Bld) 4.7 % 0-5 [facility] Work Phone: Glucose [Mass/Vol] 207 mg/dL 74-106 [facility] Work Phone: Comment on above: Glucose result great er than or equal to 200 mg/dLsuggests DIABETES MELLITUS per A.D.A. criteria. Neutrophils (Bld) [#/Vol] 3.2 10*3/uL 2.0-7.7 [facility] Work Phone: Neutrophils/100 WBC (Bld) 49.0 % 47-70 [facility] Work Phone: Potassium [Moles/Vol] 3.6 mmol/L 3.5-5.1 [facility] Work Phone: Sodium [Moles/Vol] 135 mmol/L 136-145 [facility] Work Phone: [phone] WBC (Bld) [#/Vol] 6.6 10*3/uL 4.4-11.0 [facility] Work Phone: Blood erythrocytes count (nu mber/volume)on 02-22-2022 RBC (Bld) [#/Vol] 4.50 10*6/uL 4.2-5.4 [facility] Work Phone: [phone] Blood hemoglobin measurement (mass/volume)on 02-22-2022 Hemoglobin (Bld) [Mass/Vol] 13.8 g/dL 12.0-15.0 [facility] Work Phone: Blood lymphocytes/100 leukoc yteson 02-22-2022 Lymphocytes/100 WBC (Bld) 34.9 % 19-41 [facility] Work Phone: Blood monocytes/100 leukocyt eson 02-22-2022 Monocytes/100 WBC (Bld) 10.2 % 0-10 [facility] Work Phone: Blood platelet mean volumeon 02-22-2022 Platelet mean volume (Bld) [Entitic vol] 10.3 fL 6.2-12.0 [facility] Work Phone: Determination of erythrocyte mean corpuscular volume (MCV)on 02-22-2022 MCV (RBC) [Entitic vol] 88.9 fL 81-99 [facility] Work Phone: Hematocrit Auto (Bld) [Volum e fraction]on 02-22-2022 Hematocrit (Bld) [Volume fraction] 40.0 % 37-47 [facility] Work Phone: Laboratory - Chemistry and C hemistry - challengeon 02-22-2022 CO2 [Moles/Vol] 27.0 mmol/L 21.0-32.0 [facility] Work Phone: Urea nitrogen/Creatinine [Mass ratio] 12.3 mg/mg 10-20 [facility] Work Phone: Laboratory - Hematology and Cell countson 02-22-2022 Erythrocyte distribution width (RBC) [Entitic vol] 39.8 fL 35.1-43.9 [facility] Work Phone: Erythrocyte distribution width (RBC) [Ratio] 12.2 % 11.6-14.6 [facility] Work Phone: Immature granulocytes/100 WBC (Bld) 0.600 % 0.0-0.9 [facility] Work Phone: Comment on above: IG% - Immature Granu locytes (promyelocytes, myelocytes and metamyelocytes) > 1% indicates that a LEFT SHIFT is Present. MCH (RBC) [Entitic mass] 30.7 pg 27.0-32.0 [facility] Work Phone: Nucleated RBC/100 WBC (Bld) [Ratio] 0 % 0-5 [facility] Work Phone: MCHC Auto (RBC) [Mass/Vol]on 02-22-2022 MCHC (RBC) [Mass/Vol] 34.5 g/dL 32-36 [facility]: No Panel Informationon 02-22 D-Dimer Quantitative (PE/DVT) < 0.27 FEU/ug/m 0.27-0.49 [facility] Work Phone: Comment on above: NORMAL D-Dimer level (<0.50) indicates no DVT or PE. Estimated Creatinine Clearance Calc 84.92 ml/min [facility] Work Phone: Estimated GFR (MDRD) Amer 111 mL/min >60 [facility] Work Phone: Comment on above: GFR Calc Estimated GFR (MDRD) Non-Af Amer 91 mL/min >60 [facility] Work Phone: Comment on above: Non- GFR Calc Troponin I High Sensitivity < 3 pg/mL 3.0-54.0 [facility] Work Phone: Comment on above: Please Note: New Miri t Units and Gender Specific Reference Ranges. For more information see Policy Stat Procedure Aldrich High Sensitivity Troponin (TNIH) and attachments. Platelets bldon 02-22-2022 Platelets (Bld) [#/Vol] 311 10*3/uL 150-450 [facility] Work Phone: Serum or plasma calcium alphonso urement (mass/volume)on 02-22-2022 Calcium [Mass/Vol] 9.4 mg/dL 8.5-10.1 [facility] Work Phone: Serum or plasma creatinine m easurement (mass/volume)on 02-22-2022 Creatinine [Mass/Vol] 0.73 mg/dL 0.55-1.02 [facility] Work Phone: Comment on above: The validity of the calculated GFR & GFRAA in patients over 70 years has not been determined. Clinical correlation is essential. Serum or plasma urea nitroge n measurement (mass/volume)on 02-22-2022 Urea nitrogen [Mass/Vol] 9 mg/dL 7-18 [facility] Work Phone: Thin prep Papanicolaou smear with manual screeningon 02-22-2022 Thin prep Papanicolaou smear with manual screening 5 5-15 [facility] Work Phone: ALCOHOLon 06-10-2021 ALCOHOL Canceled Normal [facility] Comment on above: Order Comment: TEST ALCOHOL WAS CANCELLED, 06/10/2021 20:44 Result Comment: FOR MEDICAL USE ONLY. Performed By: #### A #### [facility] [address] [place] [address] Provider Note - ED v2on 05-29 Provider [...] made to minimize errors. Minor errors in court usher may be present. Please call if questions.. [...] 06-10-2021 20:27 Heart Rate (beats/min): 91 06-10-2021 20: Respirations (breaths/min): 18 06-10-2021 20:27 SpO2 (%): [...] documented data. SIGNIFICANT EVENTS: No documented data. 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 : no(1) Is : no(1) RESULTS/VITAL [...] Referenced From Triage - ED 10-Jun-2021 20:27 [facility] Triage - EDon 06-10-2021 Triage - ED [...] BMI (kg/m2): 27.531 Calculated BSA (m2) 1.81 Mcneal Coma Scale: Best Eye Response: (E4) spontaneous Best Motor Response: (M6) obeys commands Best Verbal Response: (V5) oriented Mcneal Score: 15 Cough lasting greater than 3 [...] Updated: 10-Jun-2021 20:30 by Rocky Hebert (RN) [facility] Vital Signs Date Time Vital Sign Value Performing Clinician Facility 08-15-2025 15:00-0400 Heart rate 103 /min Abisai Haley MD Work Phone: [facility] 08-15-2025 14:00-0400 Body temperature 98.3 [degF] Abisai Haley MD Work Phone: [facility] 08-15-2025 14:00-0400 Diastolic blood pressure 91 mm[Hg] Abisai Haley MD Work Phone: [facility] 08-15-2025 14:00-0400 Respiratory rate 14 /min Abisai Haley MD Work Phone: [facility] 08-15-2025 14:00-0400 SaO2% (BldA) [Mass fraction] 100 % Abisai Haley MD Work Phone: [facility] 08-15-2025 14:00-0400 Systolic blood pressure 123 mm[Hg] Abisai Haley MD Work Phone: [facility] 08-15-2025 06:00-0400 Body mass index (BMI) [Ratio] 20.3 kg/m2 Abisai Haley MD Work Phone: [facility] 08-15-2025 06:00-0400 Body weight 53.8 kg Abisai Haley MD Work Phone: [facility] 08-13-2025 09:16-0400 Body height 162.56 cm Abisai Haley MD Work Phone: [facility] 08-13-2025 09:00-0400 Inhaled oxygen flow rate 2 L/min Abisai Haley MD Work Phone: [facility] 08-12-2025 12:51-0400 Heart rate 115 /min Abisai Haley MD Work Phone: [facility] 08-12-2025 12:51-0400 Inhaled oxygen flow rate 2 L/min Abisai Haley MD Work Phone: [facility] 08-12-2025 12:51-0400 Respiratory rate 17 /min Abisai Haley MD Work Phone: [facility] 08-12-2025 12:51-0400 SaO2% (BldA) [Mass fraction] 95 % Abisai Haley MD Work Phone: [facility] 08-12-2025 12:43-0400 Body mass index (BMI) [Ratio] 20.2 kg/m2 Abisai Haley MD Work Phone: [facility] 08-12-2025 12:43-0400 Body weight 53.6 kg Abisai Haley MD Work Phone: [facility] 08-12-2025 12:42-0400 Body temperature 98.3 [degF] Abisai Haley MD Work Phone: [facility] 08-12-2025 12:42-0400 Diastolic blood pressure 85 mm[Hg] Abisai Haley MD Work Phone: [facility] 08-12-2025 12:42-0400 Systolic blood pressure 161 mm[Hg] Abisai Haley MD Work Phone: [facility] 08-12-2025 08:19-0400 Body height 162.56 cm Abisai Haley MD Work Phone: [facility] 07-20-2025 13:05-0400 Heart rate 79 /min Abisai Haley MD Work Phone: 3(561)910-790471 [address] 07-20-2025 13:05-0400 Respiratory rate 16 /min Abisai Haley MD Work Phone: 5(580)632-783671 [address] 07-20-2025 07:27-0400 Inhaled oxygen flow rate 2 L/min Abisai Haley MD Work Phone: 3(302)011-440871 [address] 07-20-2025 07:27-0400 SaO2% (BldA) [Mass fraction] 94 % Abisai Haley MD Work Phone: 5(143)549-792771 [address] 07-20-2025 03:33-0400 Body temperature 98.7 [degF] Abisai Haley MD Work Phone: 6(582)722-968297 [place] [address] 07-20-2025 03:33-0400 Diastolic blood pressure 69 mm[Hg] Abisai Haley MD Work Phone: 0(317)639-818197 [place] [address] 07-20-2025 03:33-0400 Systolic blood pressure 116 mm[Hg] Abisai Haley MD Work Phone: 4(852)902-621371 [address] 07-20-2025 02:08-0400 Body mass index (BMI) [Ratio] 24.1 kg/m2 Abisai Haley MD Work Phone: 9(871)965-627271 [address] 07-20-2025 02:08-0400 Body weight 64.1 kg Abisai Haley MD Work Phone: 2(927)158-158071 [address] 07-18-2025 15:17-0400 Body height 162.56 cm Abisai Haley MD Work Phone: 3(359)987-608553 [place] [address] 07-17-2025 13:12-0400 Body temperature 98.4 [degF] Abisai Haley MD Work Phone: [facility] 07-17-2025 13:12-0400 Diastolic blood pressure 97 mm[Hg] Abisai Haley MD Work Phone: [facility] 07-17-2025 13:12-0400 Heart rate 88 /min Abisai Haley MD Work Phone: [facility] 07-17-2025 13:12-0400 Respiratory rate 16 /min Abisai Haley MD Work Phone: [facility] 07-17-2025 13:12-0400 SaO2% (BldA) [Mass fraction] 99 % Abisai Haley MD Work Phone: [facility] 07-17-2025 13:12-0400 Systolic blood pressure 181 mm[Hg] Abisai Haley MD Work Phone: 0(639)730-144871 [address] 07-17-2025 10:14-0400 Body height 162.56 cm Abisai Haley MD Work Phone: [facility] 07-17-2025 10:14-0400 Body mass index (BMI) [Ratio] 20.7 kg/m2 Abisai Haley MD Work Phone: [facility] 07-17-2025 10:14-0400 Body weight 54.93 kg Abisai Haley MD Work Phone: [facility] 05-28-2025 13:43-0400 Body temperature 98 [degF] Abisai Haley MD Work Phone: [facility] 05-28-2025 13:43-0400 Diastolic blood pressure 77 mm[Hg] Abisai Haley MD Work Phone: 9(719)414-798053 [place] [address] 05-28-2025 13:43-0400 Heart rate 83 /min Abisai Haley MD Work Phone: [facility] 05-28-2025 13:43-0400 Respiratory rate 16 /min Abisai Haley MD Work Phone: [facility] 05-28-2025 13:43-0400 SaO2% (BldA) [Mass fraction] 96 % Abisai Haley MD Work Phone: [facility] 05-28-2025 13:43-0400 Systolic blood pressure 117 mm[Hg] Abisai Haley MD Work Phone: [facility] 05-27-2025 08:08-0400 Inhaled oxygen flow rate 2 L/min Abisai Haley MD Work Phone: 9(132)380-672253 [place] [address] 05-25-2025 02:53-0400 Body height 162.56 cm Abisai Haley MD Work Phone: 6(244)128-093597 [place] [address] 05-25-2025 02:53-0400 Body mass index (BMI) [Ratio] 21.4 kg/m2 Abisai Haley MD Work Phone: 4(057)087-178397 [place] [address] 05-25-2025 02:53-0400 Body weight 56.7 kg Abisai Haley MD Work Phone: [facility] 05-25-2025 02:24-0400 Respiratory rate 16 /min Abisai Haley MD Work Phone: [facility] 05-25-2025 02:24-0400 SaO2% (BldA) [Mass fraction] 96 % Abisai Haley MD Work Phone: [facility] 05-25-2025 00:56-0400 Body temperature 98.3 [degF] Abisai Haley MD Work Phone: [facility] 05-25-2025 00:56-0400 Diastolic blood pressure 63 mm[Hg] Abisai Haley MD Work Phone: [facility] 05-25-2025 00:56-0400 Heart rate 99 /min Abisai Haley MD Work Phone: [facility] 05-25-2025 00:56-0400 Systolic blood pressure 141 mm[Hg] Abisai Haley MD Work Phone: 7(862)614-568153 [place] [address] 05-24-2025 23:09-0400 Body height 162.56 cm Abisai Haley MD Work Phone: [facility] 05-24-2025 23:09-0400 Body mass index (BMI) [Ratio] 21.7 kg/m2 Abisai Haley MD Work Phone: [facility] 05-24-2025 23:09-0400 Body weight 57.4 kg Abisai Haley MD Work Phone: [facility] 05-06-2025 11:28-0400 Body temperature 97.9 [degF] Abisai Haley MD Work Phone: [facility] 05-06-2025 11:28-0400 Diastolic blood pressure 80 mm[Hg] Abisai Haley MD Work Phone: [facility] 05-06-2025 11:28-0400 Heart rate 75 /min Abisai Haley MD Work Phone: [facility] 05-06-2025 11:28-0400 Respiratory rate 16 /min Abisai Haley MD Work Phone: [facility] 05-06-2025 11:28-0400 SaO2% (BldA) [Mass fraction] 92 % Abisai Haley MD Work Phone: [facility] 05-06-2025 11:28-0400 Systolic blood pressure 125 mm[Hg] Abisai Haley MD Work Phone: [facility] 05-06-2025 02:33-0400 Inhaled oxygen concentration 21 % Abisai Haley MD Work Phone: [facility] 05-05-2025 20:11-0400 Inhaled oxygen flow rate 2 L/min Abisai Haley MD Work Phone: [facility] 05-04-2025 11:23-0400 Body height 162.56 cm Abisai Haley MD Work Phone: [facility] 05-04-2025 11:23-0400 Body weight 59.5 kg Abisai Haley MD Work Phone: [facility] 04-26-2025 18:15-0400 Body mass index (BMI) [Ratio] 22.5 kg/m2 Abisai Haley MD Work Phone: [facility] 04-26-2025 17:00-0400 Diastolic blood pressure 86 mm[Hg] Abisai Haley MD Work Phone: [facility] 04-26-2025 17:00-0400 Heart rate 90 /min Abisai Haley MD Work Phone: [facility] 04-26-2025 17:00-0400 Respiratory rate 29 /min Abisai Haley MD Work Phone: [facility] 04-26-2025 17:00-0400 SaO2% (BldA) [Mass fraction] 95 % Abisai Haley MD Work Phone: [facility] 04-26-2025 17:00-0400 Systolic blood pressure 169 mm[Hg] Abisai Haley MD Work Phone: [facility] 04-26-2025 16:19-0400 Body temperature 98.1 [degF] Abisai Haley MD Work Phone: [facility] 04-26-2025 13:42-0400 Body height 162.56 cm Abisai Haley MD Work Phone: [facility] 04-26-2025 13:42-0400 Body mass index (BMI) [Ratio] 22.3 kg/m2 Abisai Haley MD Work Phone: [facility] 04-26-2025 13:42-0400 Body weight 58.96 kg Abisai Haley MD Work Phone: [facility] 04-12-2025 00:24-0400 Body temperature 98 [degF] Abisai Haley MD Work Phone: [facility] 04-12-2025 00:24-0400 Diastolic blood pressure 66 mm[Hg] Abisai Haley MD Work Phone: [facility] 04-12-2025 00:24-0400 Heart rate 78 /min Abisai Haley MD Work Phone: [facility] 04-12-2025 00:24-0400 Respiratory rate 16 /min Abisai Haley MD Work Phone: [facility] 04-12-2025 00:24-0400 SaO2% (BldA) [Mass fraction] 100 % Abisai Haley MD Work Phone: [facility] 04-12-2025 00:24-0400 Systolic blood pressure 125 mm[Hg] Abisai Haley MD Work Phone: [facility] 04-11-2025 23:20-0400 Inhaled oxygen flow rate 2 L/min Abisai Haley MD Work Phone: [facility] 04-11-2025 21:46-0400 Body mass index (BMI) [Ratio] 24.4 kg/m2 Abisai Haley MD Work Phone: [facility] 04-11-2025 21:46-0400 Body weight 64.6 kg Abisai Haley MD Work Phone: [facility] 04-11-2025 21:42-0400 Body height 162.56 cm Abisai Haley MD Work Phone: [facility] 04-04-2025 17:00-0400 Heart rate 97 /min Abisai Haley MD Work Phone: [facility] 04-04-2025 17:00-0400 Respiratory rate 25 /min Abisai Haley MD Work Phone: [facility] 04-04-2025 16:03-0400 Body temperature 98.4 [degF] Abisai Haley MD Work Phone: [facility] 04-04-2025 16:03-0400 Diastolic blood pressure 88 mm[Hg] Abisai Haley MD Work Phone: [facility] 04-04-2025 16:03-0400 SaO2% (BldA) [Mass fraction] 97 % Abisai Haley MD Work Phone: [facility] 04-04-2025 16:03-0400 Systolic blood pressure 157 mm[Hg] Abisai Haley MD Work Phone: [facility] 04-04-2025 11:51-0400 Body mass index (BMI) [Ratio] 25.1 kg/m2 Abisai Haley MD Work Phone: [facility] 04-04-2025 11:51-0400 Body weight 66.4 kg Abisai Haley MD Work Phone: [facility] 04-04-2025 10:24-0400 Body height 162.56 cm Abisai Haley MD Work Phone: [facility] 04-22-2024 13:48-0400 Body mass index (BMI) [Ratio] 29.6 kg/m2 Aretha Praisler-Wood ESTHETICIAN/OWNER.ADMITTING COORDINATOR Work Phone: [facility] 04-22-2024 13:48-0400 Body temperature 97.39 [degF] Aretha Praisler-Wood ESTHETICIAN/OWNER.ADMITTING COORDINATOR Work Phone: [facility] 04-22-2024 13:48-0400 Body weight 75.8 kg Aretha Praisler-Wood ESTHETICIAN/OWNER.ADMITTING COORDINATOR Work Phone: [facility] 04-22-2024 13:48-0400 Diastolic blood pressure 84 mm[Hg] Aretha Praisler-Wood ESTHETICIAN/OWNER.ADMITTING COORDINATOR Work Phone: [facility] 04-22-2024 13:48-0400 Heart rate 115 /min Aretha Praisler-Wood ESTHETICIAN/OWNER.ADMITTING COORDINATOR Work Phone: [facility] 04-22-2024 13:48-0400 Respiratory rate 20 /min Aretha Praisler-Wood ESTHETICIAN/OWNER.ADMITTING COORDINATOR Work Phone: [facility] 04-22-2024 13:48-0400 SaO2% (BldA) [Mass fraction] 98 % Aretha Praisler-Wood ESTHETICIAN/OWNER.ADMITTING COORDINATOR Work Phone: [facility] 04-22-2024 13:48-0400 Systolic blood pressure 120 mm[Hg] Aretha Schofield APRN.CNP Work Phone: [facility] 03-22-2024 07:08-0400 Body temperature 97.7 [degF] DO Milana Jose Work Phone: [facility] 03-22-2024 07:08-0400 Diastolic blood pressure 84 mm[Hg] DO Milana Jose Work Phone: [facility] 03-22-2024 07:08-0400 Heart rate 102 /min DO Milana Jose Work Phone: [facility] 03-22-2024 07:08-0400 Respiratory rate 17 /min DO Milana Jose Work Phone: [facility] 03-22-2024 07:08-0400 SaO2% (BldA) [Mass fraction] 95 % DO Milana Jose Work Phone: [facility] 03-22-2024 07:08-0400 Systolic blood pressure 134 mm[Hg] DO Milana Jose Work Phone: [facility] 01-24-2024 21:30-0500 Body temperature 96.9 [degF] DO Milana Jose Work Phone: [facility] 01-24-2024 21:30-0500 Diastolic blood pressure 61 mm[Hg] DO Milana Jose Work Phone: [facility] 01-24-2024 21:30-0500 Heart rate 96 /min DO Milana Jose Work Phone: [facility] 01-24-2024 21:30-0500 Respiratory rate 16 /min DO Milana Jose Work Phone: [facility] 01-24-2024 21:30-0500 SaO2% (BldA) [Mass fraction] 98 % DO Milana Jose Work Phone: [facility] 01-24-2024 21:30-0500 Systolic blood pressure 149 mm[Hg] DO Milana Jose Work Phone: [facility] 01-24-2024 21:25-0500 Body mass index (BMI) [Ratio] 28 kg/m2 DO Milana Jose Work Phone: [facility] 01-24-2024 21:25-0500 Body weight 74 kg DO Milana Jose Work Phone: [facility] 01-24-2024 16:39-0500 Body height 162.56 cm DO Milana Jose Work Phone: [facility] 10-19-2023 10:54-0500 Body height 162.56 cm DO Milana Jose Work Phone: [facility] 10-19-2023 10:54-0500 Body mass index (BMI) [Ratio] 26.2 kg/m2 DO Milana Jose Work Phone: [facility] 10-19-2023 10:54-0500 Body temperature 98.4 [degF] DO Milana Jose Work Phone: [facility] 10-19-2023 10:54-0500 Body weight 69.39 kg DO Milana Jose Work Phone: [facility] 10-19-2023 10:54-0500 Diastolic blood pressure 80 mm[Hg] DO Milana Jose Work Phone: [facility] 10-19-2023 10:54-0500 Heart rate 97 /min DO Milana Jose Work Phone: [facility] 10-19-2023 10:54-0500 Respiratory rate 16 /min DO Milana Jose Work Phone: [facility] 10-19-2023 10:54-0500 SaO2% (BldA) [Mass fraction] 90 % DO Milana Jose Work Phone: [facility] 10-19-2023 10:54-0500 Systolic blood pressure 147 mm[Hg] DO Milana Jose Work Phone: [facility] 10-10-2023 17:58-0500 Diastolic blood pressure 68 mm[Hg] DO Milana Jose Work Phone: [facility] 10-10-2023 17:58-0500 Heart rate 81 /min DO Milana Jose Work Phone: [facility] 10-10-2023 17:58-0500 Respiratory rate 16 /min DO Milana Jose Work Phone: [facility] 10-10-2023 17:58-0500 SaO2% (BldA) [Mass fraction] 97 % DO Milana Jose Work Phone: [facility] 10-10-2023 17:58-0500 Systolic blood pressure 128 mm[Hg] DO Milana Jose Work Phone: [facility] 10-10-2023 15:25-0500 Body mass index (BMI) [Ratio] 26.3 kg/m2 DO Milana Jose Work Phone: [facility] 10-10-2023 15:25-0500 Body temperature 98.4 [degF] DO Milana Jose Work Phone: [facility] 10-10-2023 15:25-0500 Body weight 69.58 kg DO Milana Jose Work Phone: [facility] 09-27-2023 15:27-0400 Body temperature 98.2 [degF] DO Milana Jose Work Phone: [facility] 09-27-2023 15:27-0400 Diastolic blood pressure 78 mm[Hg] DO Milana Jose Work Phone: [facility] 09-27-2023 15:27-0400 Heart rate 92 /min DO Milana Jose Work Phone: [facility] 09-27-2023 15:27-0400 Respiratory rate 17 /min DO Milana Jose Work Phone: [facility] 09-27-2023 15:27-0400 SaO2% (BldA) [Mass fraction] 92 % DO Milana Jose Work Phone: [facility] 09-27-2023 15:27-0400 Systolic blood pressure 145 mm[Hg] DO Milana Jose Work Phone: [facility] 09-15-2023 12:21-0400 Body temperature 98.6 [degF] DO Milana Jose Work Phone: [facility] 09-15-2023 12:21-0400 Diastolic blood pressure 83 mm[Hg] DO Milana Jose Work Phone: [facility] 09-15-2023 12:21-0400 Heart rate 93 /min DO Milana Jose Work Phone: [facility] 09-15-2023 12:21-0400 Respiratory rate 17 /min DO Milana Jose Work Phone: [facility] 09-15-2023 12:21-0400 SaO2% (BldA) [Mass fraction] 94 % DO Milana Jose Work Phone: [facility] 09-15-2023 12:21-0400 Systolic blood pressure 149 mm[Hg] DO Milana Jose Work Phone: [facility] 08-25-2023 10:00-0400 Body height 162.56 cm DO Milana Jose Work Phone: [facility] 08-25-2023 10:00-0400 Body mass index (BMI) [Ratio] 28.3 kg/m2 DO Milana Jose Work Phone: [facility] 08-25-2023 10:00-0400 Body weight 74.84 kg DO Milana Jose Work Phone: [facility] 08-25-2023 10:00-0400 Diastolic blood pressure 85 mm[Hg] DO Milana Jose Work Phone: [facility] 08-25-2023 10:00-0400 Heart rate 63 /min DO Milana Jose Work Phone: [facility] 08-25-2023 10:00-0400 Respiratory rate 18 /min DO Milana Jose Work Phone: [facility] 08-25-2023 10:00-0400 SaO2% (BldA) [Mass fraction] 96 % DO Milana Jose Work Phone: [facility] 08-25-2023 10:00-0400 Systolic blood pressure 136 mm[Hg] DO Milana Jose Work Phone: [facility] 08-23-2023 15:04-0400 Body temperature 97.6 [degF] DO Milana Jose Work Phone: [facility] 08-23-2023 15:04-0400 Diastolic blood pressure 78 mm[Hg] DO Milana Jose Work Phone: [facility] 08-23-2023 15:04-0400 Heart rate 78 /min DO Milana Jose Work Phone: [facility] 08-23-2023 15:04-0400 Respiratory rate 14 /min DO Milana Jose Work Phone: [facility] 08-23-2023 15:04-0400 SaO2% (BldA) [Mass fraction] 99 % DO Milana Jose Work Phone: [facility] 08-23-2023 15:04-0400 Systolic blood pressure 124 mm[Hg] DO Milana Jose Work Phone: [facility] 08-23-2023 11:44-0400 Body height 162.56 cm DO Milana Jose Work Phone: [facility] 08-23-2023 11:44-0400 Body mass index (BMI) [Ratio] 28.3 kg/m2 DO Milana Jose Work Phone: [facility] 08-23-2023 11:44-0400 Body weight 74.88 kg DO Milana Jose Work Phone: [facility] 07-29-2023 17:56-0400 Diastolic blood pressure 74 mm[Hg] DO Milana Jose Work Phone: [facility] 07-29-2023 17:56-0400 Heart rate 73 /min DO Milana Jose Work Phone: [facility] 07-29-2023 17:56-0400 Respiratory rate 15 /min DO Milana Jose Work Phone: [facility] 07-29-2023 17:56-0400 SaO2% (BldA) [Mass fraction] 98 % DO Milana Jose Work Phone: [facility] 07-29-2023 17:56-0400 Systolic blood pressure 117 mm[Hg] DO Milana Jose Work Phone: [facility] 07-29-2023 14:11-0400 Body height 162.56 cm DO Milana Jose Work Phone: [facility] 07-29-2023 14:11-0400 Body mass index (BMI) [Ratio] 27.8 kg/m2 DO Milana Jose Work Phone: [facility] 07-29-2023 14:11-0400 Body temperature 96.3 [degF] DO Milana Jose Work Phone: [facility] 07-29-2023 14:11-0400 Body weight 73.48 kg DO Milana Jose Work Phone: [facility] 07-01-2023 09:44-0400 Body height 162.56 cm DO Milana Jose Work Phone: [facility] 07-01-2023 09:44-0400 Body mass index (BMI) [Ratio] 27.8 kg/m2 DO Milana Jose Work Phone: [facility] 07-01-2023 09:44-0400 Body temperature 98.5 [degF] DO Milana Jose Work Phone: [facility] 07-01-2023 09:44-0400 Body weight 73.48 kg DO Milana Jose Work Phone: [facility] 07-01-2023 09:44-0400 Diastolic blood pressure 88 mm[Hg] DO Milana Jose Work Phone: [facility] 07-01-2023 09:44-0400 Heart rate 88 /min DO Milana Jose Work Phone: [facility] 07-01-2023 09:44-0400 Respiratory rate 18 /min DO Milana Jose Work Phone: [facility] 07-01-2023 09:44-0400 SaO2% (BldA) [Mass fraction] 95 % DO Milana Jose Work Phone: [facility] 07-01-2023 09:44-0400 Systolic blood pressure 136 mm[Hg] DO Milana Jose Work Phone: [facility] 05-25-2023 02:54-0400 Diastolic blood pressure 64 mm[Hg] DO Milana Jose Work Phone: [facility] 05-25-2023 02:54-0400 Heart rate 90 /min DO Milana Jose Work Phone: [facility] 05-25-2023 02:54-0400 Respiratory rate 18 /min DO Milana Jose Work Phone: [facility] 05-25-2023 02:54-0400 Systolic blood pressure 132 mm[Hg] DO Milana Jose Work Phone: [facility] 05-25-2023 02:11-0400 SaO2% (BldA) [Mass fraction] 94 % DO Milana Jose Work Phone: [facility] 05-24-2023 21:32-0400 Body height 162.99 cm DO Milana Jose Work Phone: [facility] 05-24-2023 21:32-0400 Body mass index (BMI) [Ratio] 28.9 kg/m2 DO Milana Jose Work Phone: [facility] 05-24-2023 21:32-0400 Body temperature 96.7 [degF] DO Milana Jose Work Phone: [facility] 05-24-2023 21:32-0400 Body weight 76.9 kg DO Milana Jose Work Phone: [facility] 05-20-2023 09:58-0400 Body height 162.56 cm DO Milana Jose Work Phone: [facility] 05-20-2023 09:57-0400 Body mass index (BMI) [Ratio] 27.6 kg/m2 DO Milana Jose Work Phone: [facility] 05-20-2023 09:57-0400 Body weight 73.02 kg DO Milana Jose Work Phone: [facility] 05-20-2023 09:57-0400 Diastolic blood pressure 98 mm[Hg] DO Milana Jose Work Phone: [facility] 05-20-2023 09:57-0400 Heart rate 81 /min DO Milana Jose Work Phone: [facility] 05-20-2023 09:57-0400 Respiratory rate 18 /min DO Milana Jose Work Phone: [facility] 05-20-2023 09:57-0400 SaO2% (BldA) [Mass fraction] 97 % DO Milana Jose Work Phone: [facility] 05-20-2023 09:57-0400 Systolic blood pressure 156 mm[Hg] DO Milana Jose Work Phone: [facility] 05-05-2023 00:54-0400 Diastolic blood pressure 62 mm[Hg] DO Milana Jose Work Phone: [facility] 05-05-2023 00:54-0400 Heart rate 68 /min DO Milana Jose Work Phone: [facility] 05-05-2023 00:54-0400 Respiratory rate 16 /min DO Milana Jose Work Phone: [facility] 05-05-2023 00:54-0400 SaO2% (BldA) [Mass fraction] 96 % DO Milana Jose Work Phone: [facility] 05-05-2023 00:54-0400 Systolic blood pressure 97 mm[Hg] DO Milana Jose Work Phone: [facility] 05-04-2023 21:23-0400 Body mass index (BMI) [Ratio] 27.2 kg/m2 DO Milana Jose Work Phone: [facility] 05-04-2023 21:23-0400 Body weight 72 kg DO Milana Jose Work Phone: [facility] 05-04-2023 19:53-0400 Body height 162.56 cm DO Milana Jose Work Phone: [facility] 05-04-2023 19:53-0400 Body temperature 97.3 [degF] DO Milana Jose Work Phone: [facility] 04-11-2023 09:46-0400 Body temperature 98 [degF] DO Milana Jose Work Phone: [facility] 04-11-2023 09:46-0400 Diastolic blood pressure 63 mm[Hg] DO Milana Jose Work Phone: [facility] 04-11-2023 09:46-0400 Heart rate 85 /min DO Milana Jose Work Phone: [facility] 04-11-2023 09:46-0400 Respiratory rate 14 /min DO Milana Jose Work Phone: [facility] 04-11-2023 09:46-0400 SaO2% (BldA) [Mass fraction] 97 % DO Milana Jose Work Phone: [facility] 04-11-2023 09:46-0400 Systolic blood pressure 118 mm[Hg] DO Milana Jose Work Phone: [facility] 04-10-2023 03:47-0400 Body height 162.56 cm DO Milana Jose Work Phone: [facility] 04-10-2023 03:47-0400 Body mass index (BMI) [Ratio] 27.4 kg/m2 DO Milana Jose Work Phone: [facility] 04-10-2023 03:47-0400 Body weight 72.5 kg DO Milana Jose Work Phone: [facility] 04-10-2023 02:34-0400 Diastolic blood pressure 61 mm[Hg] DO Milana Jose Work Phone: [facility] 04-10-2023 02:34-0400 Heart rate 87 /min DO Milana Jose Work Phone: [facility] 04-10-2023 02:34-0400 Respiratory rate 16 /min DO Milana Jose Work Phone: [facility] 04-10-2023 02:34-0400 SaO2% (BldA) [Mass fraction] 95 % DO Milana Jose Work Phone: [facility] 04-10-2023 02:34-0400 Systolic blood pressure 114 mm[Hg] DO Milana Jose Work Phone: [facility] 04-10-2023 02:15-0400 Body temperature 98 [degF] DO Milana Jose Work Phone: [facility] 04-09-2023 22:23-0400 Body height 162.56 cm DO Milana Jose Work Phone: [facility] 04-09-2023 22:23-0400 Body mass index (BMI) [Ratio] 26.8 kg/m2 DO Milana Jose Work Phone: [facility] 04-09-2023 22:23-0400 Body weight 70.8 kg DO Milana Jose Work Phone: [facility] 03-22-2023 22:52-0400 Diastolic blood pressure 69 mm[Hg] DO Milana Jose Work Phone: [facility] 03-22-2023 22:52-0400 Heart rate 71 /min DO Milana Jose Work Phone: [facility] 03-22-2023 22:52-0400 Respiratory rate 18 /min DO Milana Jose Work Phone: [facility] 03-22-2023 22:52-0400 SaO2% (BldA) [Mass fraction] 98 % DO Milana Jose Work Phone: [facility] 03-22-2023 22:52-0400 Systolic blood pressure 111 mm[Hg] DO Milana Jose Work Phone: [facility] 03-22-2023 17:49-0400 Body height 162.56 cm DO Milana Jose Work Phone: [facility] 03-22-2023 17:49-0400 Body mass index (BMI) [Ratio] 26.5 kg/m2 DO Milana Jose Work Phone: [facility] 03-22-2023 17:49-0400 Body temperature 96.4 [degF] DO Milana Jose Work Phone: [facility] 03-22-2023 17:49-0400 Body weight 70.08 kg DO Milana Jose Work Phone: [facility] 02-12-2023 10:24-0400 Body temperature 98.2 [degF] DO Milana Trenter Work Phone: [facility] 02-12-2023 10:24-0400 Diastolic blood pressure 66 mm[Hg] DO Milana Trenter Work Phone: [facility] 02-12-2023 10:24-0400 Heart rate 83 /min DO Milana Trenter Work Phone: [facility] 02-12-2023 10:24-0400 Respiratory rate 16 /min DO Milana Trenter Work Phone: [facility] 02-12-2023 10:24-0400 SaO2% (BldA) [Mass fraction] 98 % DO Milana Trenter Work Phone: [facility] 02-12-2023 10:24-0400 Systolic blood pressure 104 mm[Hg] DO Milana Garcia Work Phone: [facility] 01-21-2023 15:06-0500 Diastolic blood pressure 82 mm[Hg] Dr. Calvin Waldrop Work Phone: [facility] 01-21-2023 15:06-0500 Heart rate 90 /min Dr. Calvin Waldrop Work Phone: [facility] 01-21-2023 15:06-0500 Respiratory rate 14 /min Dr. Calvin Waldrop Work Phone: [facility] 01-21-2023 15:06-0500 SaO2% (BldA) [Mass fraction] 98 % Dr. Calvin Waldrop Work Phone: [facility] 01-21-2023 15:06-0500 Systolic blood pressure 165 mm[Hg] Dr. Calvin Waldrop Work Phone: [facility] 01-21-2023 11:49-0500 Body height 162.[address] Calvin Waldrop Work Phone: [facility] 01-21-2023 11:49-0500 Body mass index (BMI) [Ratio] 27.5 kg/m2 Dr. Calvin Waldrop Work Phone: [facility] 01-21-2023 11:49-0500 Body temperature 97.2 [degF] Dr. Calvin Waldrop Work Phone: [facility] 01-21-2023 11:49-0500 Body weight 72.[address] Calvin Waldrop Work Phone: [facility] 11-19-2022 10:59-0500 Diastolic blood pressure 69 mm[Hg] Dr. Cavlin Waldrop Work Phone: [facility] 11-19-2022 10:59-0500 Heart rate 83 /min Dr. Calvin Waldrop Work Phone: [facility] 11-19-2022 10:59-0500 Systolic blood pressure 120 mm[Hg] Dr. Calvin Waldrop Work Phone: [facility] 11-19-2022 10:47-0500 Body temperature 98.5 [degF] Dr. Calvin Waldrop Work Phone: [facility] 11-19-2022 10:47-0500 Respiratory rate 16 /min Dr. Calvin Waldrop Work Phone: [facility] 11-19-2022 10:47-0500 SaO2% (BldA) [Mass fraction] 97 % Dr. Calvin Waldrop Work Phone: [facility] 11-18-2022 13:57-0500 Body height 162.[address] Calvin Waldrop Work Phone: [facility] Work Phone: 11-18-2022 13:57-0500 Body mass index (BMI) [Ratio] 28.5 kg/m2 Dr. Calvin Waldrop Work Phone: [facility] 11-18-2022 13:57-0500 Body weight 75.[address] Calvin Waldrop Work Phone: [facility] 10-31-2022 11:49-0500 Body temperature 98.2 [degF] Dr. Calvin Waldrop Work Phone: [facility] 10-31-2022 11:49-0500 Diastolic blood pressure 88 mm[Hg] Dr. Calvin Waldrop Work Phone: [facility] 10-31-2022 11:49-0500 Heart rate 98 /min Dr. Calvin Waldrop Work Phone: [facility] 10-31-2022 11:49-0500 Respiratory rate 14 /min Dr. Calvin Waldrop Work Phone: [facility] 10-31-2022 11:49-0500 SaO2% (BldA) [Mass fraction] 97 % Dr. Calvin Waldrop Work Phone: [facility] 10-31-2022 11:49-0500 Systolic blood pressure 136 mm[Hg] Dr. Calvin Waldrop Work Phone: [facility] 10-07-2022 14:59-0500 Body temperature 97.8 [degF] Dr. Calvin Waldrop Work Phone: [facility] 10-07-2022 14:59-0500 Diastolic blood pressure 80 mm[Hg] Dr. Calvin Waldrop Work Phone: [facility] 10-07-2022 14:59-0500 Heart rate 107 /min Dr. Calvin Waldrop Work Phone: [facility] 10-07-2022 14:59-0500 Respiratory rate 16 /min Dr. Calvin Waldrop Work Phone: [facility] 10-07-2022 14:59-0500 SaO2% (BldA) [Mass fraction] 98 % Dr. Calvin Waldrop Work Phone: [facility] 10-07-2022 14:59-0500 Systolic blood pressure 154 mm[Hg] Dr. Calvin Waldrop Work Phone: [facility] 09-05-2022 23:51-0400 Diastolic blood pressure 68 mm[Hg] Calvin Waldrop [facility] Work Phone: 09-05-2022 23:51-0400 Heart rate 115 /min [facility] Work Phone: 09-05-2022 23:51-0400 Respiratory rate 16 /min [facility] Work Phone: 09-05-2022 23:51-0400 SaO2% (BldA) [Mass fraction] 96 % [facility] Work Phone: 09-05-2022 23:51-0400 Systolic blood pressure 129 mm[Hg] [facility] Work Phone: 09-05-2022 21:11-0400 Body height 162.56 cm [facility] Work Phone: 09-05-2022 21:11-0400 Body mass index (BMI) [Ratio] 27.5 kg/m2 [facility] Work Phone: 09-05-2022 21:11-0400 Body temperature 98 [degF] [facility] Work Phone: 09-05-2022 21:11-0400 Body weight 72.7 kg [facility] Work Phone: 07-21-2022 18:58-0400 Body temperature 99 [degF] Samantha Deleon ESTHETICIAN/OWNER.ADMITTING COORDINATOR Work Phone: [facility] 07-21-2022 18:58-0400 Body weight 72.39 kg Samantha Deleon ESTHETICIAN/OWNER.ADMITTING COORDINATOR Work Phone: [facility] 07-21-2022 18:58-0400 Diastolic blood pressure 84 mm[Hg] Samantha Deleon ESTHETICIAN/OWNER.ADMITTING COORDINATOR Work Phone: [facility] 07-21-2022 18:58-0400 Heart rate 83 /min Samantha Deleon ESTHETICIAN/OWNER.ADMITTING COORDINATOR Work Phone: [facility] 07-21-2022 18:58-0400 Respiratory rate 16 /min Samantha Deleon ESTHETICIAN/OWNER.ADMITTING COORDINATOR Work Phone: [facility] 07-21-2022 18:58-0400 SaO2% (BldA) [Mass fraction] 98 % Samantha Deleon ESTHETICIAN/OWNER.ADMITTING COORDINATOR Work Phone: [facility] 07-21-2022 18:58-0400 Systolic blood pressure 138 mm[Hg] Samantha Deleon ESTHETICIAN/OWNER.ADMITTING COORDINATOR Work Phone: [facility] 05-31-2022 12:28-0400 Body mass index (BMI) [Ratio] 26.3 kg/m2 [facility] Work Phone: 05-31-2022 12:28-0400 Body temperature 97.3 [degF] [facility] Work Phone: 05-31-2022 12:28-0400 Body weight 69.51 kg [facility] Work Phone: 05-31-2022 12:28-0400 Diastolic blood pressure 76 mm[Hg] [facility] Work Phone: 05-31-2022 12:28-0400 Heart rate 69 /min [facility] Work Phone: 05-31-2022 12:28-0400 Respiratory rate 18 /min [facility] Work Phone: 05-31-2022 12:28-0400 SaO2% (BldA) [Mass fraction] 99 % [facility] Work Phone: 05-31-2022 12:28-0400 Systolic blood pressure 116 mm[Hg] [facility] Work Phone: 02-22-2022 15:02-0400 Diastolic blood pressure 84 mm[Hg] [facility] Work Phone: 02-22-2022 15:02-0400 Heart rate 71 /min [facility] Work Phone: 02-22-2022 15:02-0400 Respiratory rate 14 /min [facility] Work Phone: 02-22-2022 15:02-0400 SaO2% (BldA) [Mass fraction] 96 % [facility] Work Phone: 02-22-2022 15:02-0400 Systolic blood pressure 120 mm[Hg] [facility] Work Phone: 02-22-2022 12:30-0400 Body temperature 96.2 [degF] [facility] Work Phone: 02-22-2022 12:12-0400 Body height 162.56 cm [facility] Work Phone: 02-22-2022 12:12-0400 Body mass index (BMI) [Ratio] 26.3 kg/m2 [facility] Work Phone: 02-22-2022 12:12-0400 Body weight 69.5 kg [facility] Work Phone: 06-10-2021 22:58-0400 Diastolic blood pressure 62 mm[Hg] No Pcp Required [facility] 06-10-2021 22:58-0400 Heart rate 88 /min No Pcp Required [facility] 06-10-2021 22:58-0400 Respiratory rate 16 /min No Pcp Required [facility] 06-10-2021 22:58-0400 SaO2% (BldA) [Mass fraction] 99 % No Pcp Required [facility] 06-10-2021 22:58-0400 Systolic blood pressure 105 mm[Hg] No Pcp Required [facility] 06-10-2021 22:27-0400 Body height 162.5 cm No Pcp Required [facility] 06-10-2021 22:27-0400 Body temperature 96.98 [degF] No Pcp Required [facility] 06-10-2021 22:27-0400 Body weight 72.7 kg No Pcp Required [facility] Encounters Encounter Date Encounter Type Care Provider Facility Start: 08-15-2025 Dr. Zev Garrett MD [facility] Work Phone: Start: 08-14-2025 Dr. Zev Tucker MD [facility] Work Phone: Start: 08-13-2025 Dr. Zev Tucker MD [facility] Work Phone: Start: 08-12-2025 ambulatory Abisai Haley Facility:[facility] Start: 08-12-2025 End: 08-15-2025 Evaluation and management of inpatient Abisai Haley MD Work Phone: -Intensive Care Unit Start: 08-12-2025 End: 08-15-2025 Dr. Zev Tucker MD -Intensive Care Uni t Work Phone: Start: 07-20-2025 Dr. Canelo Myers MD [facility] Work Phone: Start: 07-19-2025 Dr. Canelo Myers MD [facility] Work Phone: Start: 07-18-2025 Dr. Canelo Myers MD [facility] Work Phone: Start: 07-17-2025 ambulatory Canelo Myers Facility:[facility] Start: 07-17-2025 End: 07-20-2025 Evaluation and management of inpatient Abisai Haley MD Work Phone: -[facility] Surgical 3 Start: 07-17-2025 End: 07-20-2025 Dr. Canelo Myers MD -[facility] Work Phone: Start: 05-28-2025 Non-patient / [facility] Work [facility]: Start: 05-28-2025 [facility] Work [facility]: Start: 05-27-2025 Non-patient / Non-[facility] Work Phone: Start: 05-27-2025 Dr. [facility] Work Phone: Start: 05-26-2025 Non-patient / Non-visit Dr. Mao Becker [facility] Work Phone: Start: 05-26-2025 Dr. Mao Becker [facility] Work Phone: Start: 05-25-2025 Non-patient / Non-visit Dr. Myra Null MD [facility] Work Phone: Start: 05-25-2025 ambulatory Myra Null Facility :[facility] Start: 05-25-2025 End: 05-28-2025 Evaluation and management of inpatient Dr. Myra Null MD -[facility] Work Phone: Start: 05-25-2025 End: 05-28-2025 Dr. Mao Becker DO -[facility] Work Phone: Start: 05-06-2025 Non-patient / Non-visit Dr. Mao Becker [facility] Work Phone: Start: 05-06-2025 Dr. Mao Becker [facility] Work Phone: Start: 05-05-2025 Non-patient / Non-visit Dr. Mao Becker [facility] Work Phone: Start: 05-05-2025 Dr. Mao Becker [facility] Work Phone: Start: 05-04-2025 Non-patient / Non-visit Dr. Canelo Myers MD [facility] Work Phone: Start: 05-04-2025 Dr. Canelo Myers MD [facility] Work Phone: Start: 05-03-2025 Non-patient / Non-visit Dr. Canelo Myers MD [facility] Work Phone: Start: 05-03-2025 Dr. Canelo Myers MD [facility] Work Phone: Start: 05-02-2025 Non-patient / Non-visit Dr. Canelo Myers MD [facility] Work Phone: Start: 05-02-2025 Dr. Canelo Myers MD [facility] Work Phone: Start: 05-01-2025 Non-patient / Non-visit Dr. Canelo Myers MD [facility] Work Phone: Start: 05-01-2025 [facility] Work Phone: Start: 04-30-2025 Non-patient / Non-visit Dr. Canelo Myers MD [facility] Work Phone: Start: 04-30-2025 Dr. Canelo Myers MD [facility] Work Phone: Start: 04-29-2025 Non-patient / Non-visit Dr. Canelo Myers MD [facility] Work Phone: Start: 04-29-2025 Dr. Canelo Myers MD [facility] Work Phone: Start: 04-28-2025 Non-patient / Non-visit Dr. Canelo Myers MD [facility] Work Phone: Start: 04-28-2025 Dr. Canelo Myers MD [facility] Work Phone: Start: 04-27-2025 Non-patient / Non-visit Dr. Canelo Myers MD [facility] Work Phone: Start: 04-27-2025 Dr. Canelo Myers MD [facility] Work Phone: Start: 04-26-2025 Non-patient / Non-visit Dr. Julius Moncada MD [facility] Work Phone: Start: 04-26-2025 ambulatory Canelo Myers Facility:[facility] Start: 04-26-2025 End: 05-06-2025 Evaluation and management of inpatient Dr. Julius Moncada MD -[facility] Work Phone: Start: 04-26-2025 End: [...] -Emergency Department Work Phone: Start: 01-03-2025 ambulatory [facility] Facility:[facility] Start: 11-12-2024 End: 11-12-2024 Emergency department patient visit [facility] Facility:[facility] Start: 10-09-2024 End: 10-09-2024 ambulatory [facility] Facility:[facility] Start: 09-25-2024 End: 09-25-2024 ambulatory [facility] Facility:[facility] Start: 08-28-2024 End: 08-28-2024 ambulatory [facility] Facility:[facility] Start: 04-22-2024 End: 04-22-2024 ambulatory [facility] Facility:[facility] Start: 04-22-2024 End: 04-22-2024 Patient encounter procedure Aretha Schofield APRN.CNP Work Phone: [facility] Comment on above: Sinus congestion (Pr imary Dx); Wheezing; Nausea Start: 03-22-2024 End: 03-22-2024 Patient encounter procedure DO Milana Garcia Work Phone: [facility] Work Phone: Start: 03-21-2024 End: 03-21-2024 ambulatory DO Milana Garcia Work Phone: [facility] Work Phone: Start: 03-21-2024 End: 03-21-2024 Patient encounter procedure DO Milana Garcia Work Phone: [facility] Start: 01-24-2024 End: 01-24-2024 Emergency department patient visit DO Mil[facility] Start: 10-19-2023 End: 10-19-2023 Patient encounter procedure DO Milana Garcia Work Phone: [facility] Work Phone: Start: 10-15-2023 End: 10-15-2023 ambulatory DO Milana Garcia Work Phone: [facility] Work Phone: Start: 10-15-2023 End: 10-15-2023 Patient encounter procedure DO Milana Garcia Work Phone: [facility] Work Phone: Start: 10-10-2023 End: 10-10-2023 Emergency department patient visit DO Mil[facility] Start: 09-27-2023 End: 09-27-2023 Patient encounter procedure DO Milana Garcia Work Phone: [facility] Work Phone: Start: 09-15-2023 End: 09-15-2023 Patient encounter procedure DO Milana Garcia Work Phone: [facility] Work Phone: Start: 08-25-2023 End: 08-25-2023 ambulatory DO Milana Garcia Work Phone: [facility] Work Phone: Start: 08-25-2023 End: 08-25-2023 Patient encounter procedure DO Milana Garcia Work Phone: [facility] Work Phone: Start: 08-25-2023 End: 08-25-2023 Patient encounter procedure DO Milana Garcia Work Phone: [facility] Work Phone: Start: 08-23-2023 End: 08-23-2023 Emergency department patient visit DO Mil[facility] Start: 07-29-2023 End: 07-29-2023 Emergency department patient visit DO Mil[facility] Start: 07-19-2023 End: 07-19-2023 ambulatory DO Milana Garcia Work Phone: [facility] Work Phone: Start: 07-19-2023 End: 07-19-2023 Patient encounter procedure DO Milana Garcia Work Phone: [facility] Work Phone: Start: 07-01-2023 End: 07-01-2023 Patient encounter procedure DO Milana Garcia Work Phone[facility] Work Phone: Start: 05-25-2023 Registered Referred DO Mil[facility] Garcia [facility] Start: 05-24-2023 End: 05-25-2023 Emergency department patient visit DO Milana Garcia Work Phone: [facility] Start: 05-20-2023 End: 05-20-2023 Patient encounter procedure DO Milana Garcia Work Phone: [facility] Start: 05-19-2023 End: 05-19-2023 ambulatory DO Milana Garcia Work Phone: [facility] Work Phone: Start: 05-19-2023 End: 05-19-2023 Patient encounter procedure DO Milana Garcia Work Phone: [facility] Start: 05-04-2023 End: 05-05-2023 Emergency department patient visit DO Mil[facility] Start: 04-11-2023 Non-patient / Non-visit DO Milana Christensennger Work Phone: [facility] Start: 04-10-2023 End: 04-10-2023 Non-patient / Non-visit DO Milana Garcia Work Phone: [facility] Start: 04-10-2023 End: 04-11-2023 Evaluation and management of inpatient DO Milana Garcia Work Phone: [facility] Start: 04-09-2023 End: 04-09-2023 Patient encounter procedure DO Milana Garcia Work Phone: [facility] Start: 03-22-2023 End: 03-22-2023 Emergency department patient visit DO Milana Garcia Work Phone: [facility]Emer[facility] Start: 02-12-2023 End: 02-12-2023 Patient encounter procedure DO Milana Christensennger Work Phone: [facility] Start: 01-21-2023 End: 01-21-2023 Emergency department patient visit Dr. Calvin Waldrop Work Phone: [facility]Emer[facility] Start: 11-19-2022 Non-patient / Non-visit Dr. Calvin Waldrop Work Phone: [facility] Start: 11-19-2022 Non-patient / Non-visit Dr. Calvin Waldrop Work Phone: [facility] Start: 11-18-2022 Non-patient / Non-visit Dr. Calvin Waldrop Work Phone: [facility] Start: 11-18-2022 Non-patient / Non-visit Dr. Calvin Waldrop Work Phone: [facility] Start: 11-18-2022 End: 11-19-2022 Evaluation and management of inpatient Dr. Calvin Waldrop Work Phone: [facility] Start: 10-31-2022 End: 10-31-[address] Calvin Waldrop Work Phone: [facility] Start: 10-07-2022 End: 10-07-[address] Calvin Waldrop Work Phone: [facility] Start: 09-05-2022 End: 09-06-2022 [facility] Start: 07-21-2022 End: 07-21-2022 Subsequent hospital visit by physician [facility] Work Phone: Radiology Comment on above: Hip pain, acute, lef t [M25.552] Start: 07-21-2022 End: 07-21-2022 Patient encounter procedure Samantha Deleon APRN.CNP Work Phone: [facility] Comment on above: Hip pain, acute, lef t (Primary Dx) Start: 05-31-2022 End: 05-31-2022 Patient encounter procedure Calvin Waldrop [facility] Start: 02-22-2022 End: 02-22-2022 Emergency department patient visit [facility] Start: 06-10-2021 End: 06-10-2021 Emergency department patient visit Noe Engel [facility] Emergency 07 Procedures Date Procedure Procedure Detail Performing Clinician Start: 08-15-2025 Videoswallow Abisai morris MD Work Phone: Start: 08-15-2025 Estimated creatinine clearance Abisai Haley MD Work Phone: Start: 08-13-2025 Blood count smear mc rscp w/mnl difrntl wbc count Abisai Haley MD Work Phone: Start: 08-13-2025 Mean corpuscular hem oglobin concentration determination Abisai Haley MD Work Phone: Start: 08-13-2025 Nucleated red blood cell count procedure Abisai Haley MD Work Phone: Start: 08-13-2025 Platelet mean volume determination Abisai Haley MD Work Phone: Start: 08-13-2025 Serum inorganic phos phate measurement Abisai Haley MD Work Phone: Start: 08-12-2025 Urine microscopy: red cells Abisai Haley MD Work Phone: Start: 08-12-2025 Urnls dip stick/tabl et reagent auto microscopy Abisai Haley MD Work Phone: Start: 08-12-2025 Bacterial nucleic acid assay Abisai Haley MD Work Phone: Start: 08-12-2025 Blood culture Abisai leos MD Work Phone: Start: 08-12-2025 Sars-cov-2 Abisai morris MD Work Phone: Start: 08-12-2025 End: 08-12-2025 Streptococcus pneumoniae antigen assay Abisai Haley MD Work Phone: Start: 08-12-2025 Streptococcus pyogen es rRNA assay Abisai Haley MD Work Phone: Start: 08-12-2025 Urine culture Abisai leos MD Work Phone: Start: 08-12-2025 Abisai morris MD Work Phone: Start: 08-12-2025 Venous oxygen satura tion measurement Abisai Haley MD Work Phone: Start: 08-12-2025 Carbon dioxide measu rement, partial pressure Abisai Haley MD Work Phone: Start: 08-12-2025 Gases blood o2 satur ation only direct alphonso Abisai Haley MD Work Phone: Start: 08-12-2025 Measurement of parti al pressure of oxygen in blood Abisai Haley MD Work Phone: Start: 08-12-2025 Assay of lactate Abisai Haley MD Work Phone: Start: 08-12-2025 Computed tomography of abdomen and pelvis with intravenous contrast Abisai Haley MD Work Phone: Start: 08-12-2025 Blood count smear mc rscp w/mnl difrntl wbc count Abisai Haley MD Work Phone: Start: 08-12-2025 Flow cytometry cell surf marker techl only 1st Abisai Haley MD Work Phone: Start: 08-12-2025 Mean corpuscular hem oglobin concentration determination Abisai Haley MD Work Phone: Start: 08-12-2025 Platelet mean volume determination Abisai Haley MD Work Phone: Start: 08-12-2025 Triacylglycerol lipa se measurement Abisai Haley MD Work Phone: Start: 07-20-2025 Blood count smear mc rscp w/mnl difrntl [...] mc rscp w/mnl difrntl wbc count Abisai aHley MD Work Phone: Start: 07-17-2025 Calculation of [...] Urnls dip stick/tabl et reagent auto microscopy bAisai Haley MD Work Phone: Start: 04-26-2025 Estimated [...] SARS-CoV-2 & FLU Ant igen (Rapid) DO Milana Jose Work Phone: Start: 08-23-2023 Computed tomography of abdomen and pelvis with intravenous contrast DO Milana Jose Work Phone: Start: 07-29-2023 Computed tomography of abdomen and pelvis with intravenous contrast DO Milana Jose Work Phone: Start: 07-29-2023 Plain chest X-ray [...] unilateral with pelvis 2-3 views Samantha Deleon ESTHETICIAN/OWNER.ADMITTING COORDINATOR Work Phone: Start: 02-22-2022 Plain chest X-ray Start: 06-21-2020 Mammography Samantha Ri ggs ESTHETICIAN/OWNER.ADMITTING COORDINATOR Work Phone: Start: 09-11-2015 Colonoscopy Samantha Ri ggs ESTHETICIAN/OWNER.ADMITTING COORDINATOR Work Phone: Bacteria identified in Blood by Culture DO Milana Garcia Work Phone: Plan of Treatment Date Care Activity Detail Author Start: 03-03-2034 Urine microalbumin profile DTaP,Tdap,Td Vaccine (3 - Td or Tdap) [facility] Start: 08-15-2025 Patient discharge [facility] Start: 08-15-2025 Inhalation therapy procedure [facility] Start: 08-14-2025 [facility] Start: 08-13-2025 End: 08-14-2025 [facility] Start: 08-13-2025 Application of intermittent pneumatic compression device [facility] Start: 08-13-2025 Consultation [facility] Start: 08-13-2025 Care regimes management [facility] Start: 08-13-2025 Notification of physician [facility] Start: 08-13-2025 Speech therapy assessment [facility] Start: 08-12-2025 Following clinical pathway protocol [facility] Start: 08-12-2025 Assessment of risk of venous thromboembolism [facility] Start: 08-12-2025 Care regimes management [facility] Start: 08-12-2025 Insertion of catheter into peripheral vein [facility] Start: 08-12-2025 Lab findings surveillance [facility] Start: 08-12-2025 Measuring intake and output [facility] Start: 08-12-2025 Nil by mouth [facility] Start: 08-12-2025 Notification of physician [facility] Start: 08-12-2025 Oxygen therapy [facility] Start: 08-12-2025 Providing care according to standard [facility] Start: 08-12-2025 Vital signs measurements [facility] Start: 08-12-2025 Streptococcus pyogenes rRNA [Presence] in Throat by Probe [facility] Start: 08-12-2025 Serum inorganic phosphate measurement [facility] Start: 08-12-2025 Urinalysis complete panel - Urine [facility] Start: 08-12-2025 End: 08-12-2025 [facility] Start: 08-12-2025 Verification routine [facility] Start: 08-12-2025 Admission procedure [facility] Start: 08-12-2025 Hospital admission, emergency, from emergency room, medical nature [facility] Start: 08-12-2025 Patient referral to dietitian [facility] Start: 07-20-2025 Patient discharge [facility] Start: 07-18-2025 [facility] Start: 07-17-2025 End: 07-18-2025 [facility] Start: 07-17-2025 Following clinical pathway protocol [facility] Start: 07-17-2025 Ambulation without limitation [facility] Start: 07-17-2025 Assessment of risk of venous thromboembolism [facility] Start: 07-17-2025 Care regimes management [facility] Start: 07-17-2025 Insertion of catheter into peripheral vein [facility] Start: 07-17-2025 Measuring intake and output [facility] Start: 07-17-2025 Notification of physician [facility] Start: 07-17-2025 Oxygen therapy [facility] Start: 07-17-2025 Providing care according to standard [facility] Start: 07-17-2025 Vital signs measurements [facility] Start: 07-17-2025 Prothrombin time [facility] Start: 07-17-2025 Verification routine [facility] Start: 07-17-2025 Hospital admission, emergency, from emergency room, medical nature [facility] Start: 07-17-2025 Admission procedure [facility]: 07[facility]17-[facility]: 07-17-[facility]25 [facility] Start: 05-28-2025 Patient discharge [facility] Start: 05-26-2025 [facility] Start: 05-25-2025 Assessment of risk of venous thromboembolism [facility] Start: 05-25-2025 Care regimes management [facility] Start: 05-25-2025 Inhalation therapy procedure [facility] Start: 05-25-2025 Introduction of urinary catheter [facility] Start: 05-25-2025 Notification of physician [facility] Start: 05-25-2025 Oxygen therapy [facility] Start: 05-25-2025 Provision of activity privileges [facility] Start: 05-25-2025 Referral to service [facility] Start: 05-25-2025 Vital signs measurements [facility] Start: 05-25-2025 End: 05-25-2025 [facility] Start: 05-25-2025 Following clinical pathway protocol [facility] Start: 05-25-2025 Hospital admission, emergency, from emergency room, medical nature [facility] Start: 05-25-2025 Verification routine [facility] Start: 05-25-2025 Admission procedure [facility] Start: 05-06-2025 Patient discharge [facility] Start: 05-05-2025 Inhalation therapy procedure [facility] Start: 05-01-2025 Referral for physical therapy [facility] Start: 05-01-2025 Referral to occupational therapist [facility] Start: 05-01-2025 Referral to service [facility] Start: 04-29-2025 Oxygen therapy [facility] Start: 04-28-2025 Assessment of risk of venous thromboembolism [facility] Start: 04-28-2025 Notification of physician [facility] Start: 04-28-2025 Vital signs measurements [facility] Start: 04-27-2025 [facility] Start: 04-27-2025 Hepatic function panel [facility] Start: 04-27-2025 Prothrombin time [facility] Start: 04-27-2025 Serum inorganic phosphate measurement [facility] Start: 04-27-2025 Thyroid stimulating hormone measurement [facility] Start: 04-26-2025 Following clinical pathway protocol [facility] Start: 04-26-2025 End: 04-26-2025 [facility] Start: 04-26-2025 Care regimes management [facility] Start: 04-26-2025 Notification of physician [facility] Start: 04-26-2025 Admission procedure [facility] Start: 04-26-2025 Ambulation without limitation [facility] Start: 04-26-2025 Assessment of risk of venous thromboembolism [facility] Start: 04-26-2025 Insertion of catheter into peripheral vein [facility] Start: 04-26-2025 Providing care according to standard [facility] Start: 04-26-2025 Verification routine [facility] Start: 04-26-2025 Hospital admission, emergency, from emergency room, medical nature [facility] Start: 04-26-2025 Patient referral to dietitian [facility] Start: 04-12-2025 [facility] Start: 04-11-2025 [facility] Start: 04-05-2025 [facility] Start: 04-04-2025 [facility] Start: 04-04-2025 End: 04-04-2025 [facility] Start: 07-30-2024 Covid-19 Vaccine () Covid-19 Vaccine () [facility] Start: 07-30-2024 Influenza vaccination [facility] Start: 06-07-2024 Hepatitis B Vaccine (3 of 3 - Hep B Twinrix 3-dose series) Hepatitis B Vaccine (3 of 3 - Hep B Twinrix 3-dose series) [facility] Start: 03-22-2024 Patient referral [facility] Work Phone: Start: 01-24-2024 [facility] Start: 01-24-2024 End: 01-24-2024 [facility] Start: 10-26-2023 HPV TESTING HPV TESTING [facility] Start: 10-26-2023 PAP TESTING PAP TESTING [facility] Start: 10-26-2023 Screening for malignant neoplasm of cervix [facility] Start: 10-15-2023 Elastase, pancreatic (el-1), fecal; quantitative [facility] Start: 10-10-2023 [facility] Start: 10-10-2023 [facility] Start: 09-26-2023 Urine microalbumin profile DTAP,TDAP,TD (2 - Td or Tdap) [facility] Start: 07-29-2023 [facility] Start: 05-24-2023 [facility] Start: 05-04-2023 [facility] Start: 04-11-2023 Patient discharge [facility] Start: 04-10-2023 Following clinical pathway protocol [facility] Start: 04-10-2023 Ambulation without limitation [facility] Start: 04-10-2023 Assessment of risk of venous thromboembolism [facility] Start: 04-10-2023 Care regimes management [facility] Start: 04-10-2023 Inhalation therapy procedure [facility] Start: 04-10-2023 Insertion of catheter into peripheral vein [facility] Start: 04-10-2023 Measuring intake and output [facility] Start: 04-10-2023 Notification of physician [facility] Start: 04-10-2023 Providing care according to standard [facility] Start: 04-10-2023 Tobacco use cessation education [facility] Start: 04-10-2023 [facility] Start: 04-10-2023 Electrocardiographic procedure [facility] Start: 04-10-2023 Verification routine [facility] Start: 04-10-2023 Admission procedure [facility] Start: 04-10-2023 End: 04-10-2023 Blood culture [facility] Start: 01-21-2023 [facility] Start: 11-19-2022 Patient referral [facility] Work Phone: Start: 11-19-2022 Patient discharge [facility] Start: 11-19-2022 Notification of physician [facility] Start: 11-19-2022 Patient education [facility] Start: 11-19-2022 Pulse taking [facility] Start: 11-19-2022 Taking patient vital signs [facility] Start: 11-19-2022 Wound care [facility] Start: 11-19-2022 [facility] Start: 11-19-2022 Catheterization of left heart [facility] Work Phone: Start: 11-18-2022 Assessment of risk of venous thromboembolism [facility] Start: 11-18-2022 Care regimes management [facility] Start: 11-18-2022 Insertion of catheter into peripheral vein [facility] Start: 11-18-2022 Measuring intake and output [facility] Start: 11-18-2022 Providing care according to standard [facility] Start: 11-18-2022 Referral to pre school teacher [facility] Start: 11-18-2022 [facility] Start: 11-18-2022 Following clinical pathway protocol [facility] Start: 11-18-2022 Catheterization of vein [facility] Start: 11-18-2022 Medication not administered [facility] Start: 11-18-2022 Notification of physician [facility] Start: 11-18-2022 Preoperative care [facility] Start: 11-18-2022 [facility] Start: 11-18-2022 Admission procedure [facility] Start: 10-07-2022 Patient referral [facility] Work Phone: Start: 07-30-2022 Influenza vaccination INFLUENZA (#1) [facility] Start: 2022 COLOGUARD (FIT-DNA) COLOGUARD (FIT-DNA) [facility] Start: 2022 Colonoscopy COLONOSCOPY [facility] Start: 2022 COLORECTAL CANCER SCREENING COLORECTAL CANCER SCREENING [facility] Start: [address] COLONOGRAPHY [facility] Start: 2022 FECAL OCCULT BLOOD FECAL OCCULT BLOOD [facility] Start: 2022 Screening for malignant neoplasm of colon [facility] Start: 2022 SIGMOIDOSCOPY SIGMOIDOSCOPY [facility] Start: 07-15-2021 ANNUAL PCP TEAM CHRONIC DISEASE VISIT ANNUAL PCP TEAM CHRONIC DISEASE VISIT [facility] Start: 07-03-2021 Screening for malignant neoplasm of breast Mammogram Screening [facility] Start: 06-21-2021 Hepatitis B screening URINE ALBUMIN:CREATININE RATIO [facility] Start: 06-21-2021 Hepatitis B surface antibody level LDL CHOLESTEROL [facility] Start: 06-21-2021 Mammography MAMMOGRAM [facility] Start: 05-19-2021 COVID-19 VACCINE (3 - Booster for Pfizer series) COVID-19 VACCINE (3 - Booster for Pfizer series) [facility] Start: 11-19-2020 Hemoglobin A1c measurement HbA1C [facility] Start: 11-19-2020 Hemoglobin A1c/Hemoglobin.total in Blood HBA1C [facility] Start: 07-19-2020 3 comp foot exam [facility] Start: 07-19-2020 Diabetic foot examination Diabetic Foot Exam [facility] Start: 12-26-2019 Glaucoma screening Dilated Retinal Exam [facility] Start: 12-26-2019 Hepatitis C antibody, confirmatory test DILATED RETINAL EXAM [facility] Start: 10-20-2014 PNEUMOCOCCAL (2 - PCV) PNEUMOCOCCAL (2 - PCV) [facility] Start: 1995 Anxiety Screening Anxiety Screening [facility] Start: 1995 BP CONTROLLED (<130/80) BP CONTROLLED (<130/80) [facility] Start: 1995 HEPATITIS C SCREENING HEPATITIS C SCREENING [facility] Start: 1995 Hepatitis C screening Hepatitis C Screening [facility] Start: 1995 HIV SCREENING HIV SCREENING [facility] Start: 1995 HIV screening HIV Screening [facility] Start: 1977 HEPATITIS B (1 of 3 - 3-dose series) HEPATITIS B (1 of 3 - 3-dose series) [facility] Alanine aminotransfe rase [Enzymatic activity/volume] in Serum or Plasma [facility] Albumin [Mass/volume ] in Serum or Plasma [facility] Alkaline phosphatase [Enzymatic activity/volume] in Serum or Plasma [facility] Anion gap in Serum or Plasma [facility] Bacteria identified in Blood by Culture Blood Culture [facility] Bilirubin, total measurement [facility] Bilirubin.direct [Ma ss/volume] in Serum or Plasma [facility] BUN/Creatinine ratio [facility] Calcium [Mass/volume ] in Serum or Plasma [facility] Carbon dioxide, tota l [Moles/volume] in Central venous blood [facility] Cardiac event recording [facility] Creatinine [Mass/vol ume] in Serum or Plasma [facility] Erythrocyte mean cor puscular volume determination [facility] Fat [Mass/mass] in Stool [facility] Fat.neutral [Presenc e] in Stool [facility] Glucose [Mass/volume ] in Serum or Plasma [facility] Hematocrit [Volume F raction] of Blood [facility] Hemoglobin [Mass/vol ume] in Blood [facility] Hemoglobin A1c/Hemoglobin.total in Blood [facility] INR in Blood by Coag ulation assay [facility] INR in Blood by Coag ulation assay [facility] Lactic acid measurement [facility] Leukocytes [#/volume] in Blood [facility] Magnesium measurement [facility] Mean corpuscular hem oglobin concentration determination [facility] Mean corpuscular hem oglobin determination [facility] Measurement of renal function [facility] Neutrophil count [facility] Neutrophil percent differential count [facility] Patient Education [facility] Work Phone: Patient referral [facility] Work Phone: Platelets [#/volume] in Blood [facility] Potassium measurement [facility] Red blood cell count [facility] Red cell distributio n width determination [facility] Serum chloride measurement [facility] Sodium measurement [facility] Total protein measurement [facility] Troponin T.cardiac [Mass/volume] in Serum or Plasma by High sensitivity method [facility] Urea nitrogen [Mass/ volume] in Serum or Plasma [facility] Immunizations Immunization Date Immunization Notes Care Provider Juany griffith 10-16-2022 influenza virus vacc ine, unspecified formulation Aretha Schofield ESTHETICIAN/OWNER.ADMITTING COORDINATOR Work Phone: [facility] 09-16-2018 influenza, injectabl e, quadrivalent, contains preservative Samantha Deleon ESTHETICIAN/OWNER.[facility] Work Phone: [facility] Work Phone: 11-19-2015 influenza, injectabl e, quadrivalent, contains preservative Samantha Deleon ESTHETICIAN/OWNER.[facility] Work Phone: [facility] 10-02-2014 influenza, seasonal, injectable Samantha Deleon ESTHETICIAN/OWNER.[facility] Work Phone: [facility] Work Phone: 09-27-2014 influenza, injectabl e, quadrivalent, preservative free DO Milana Garcia Work Phone: [facility] 09-27-2014 influenza, seasonal, injectable [facility] 10-20-2013 pneumococcal polysaccharide vaccine, 23 valent Samantha Deleon ESTHETICIAN/OWNER.[facility] Work Phone: [facility] Work Phone: 09-27-2013 Pneumococcal Vaccine [facility] Work Phone: 09-27-2013 pneumococcal vaccine , unspecified formulation Dr. Calvin Waldrop Work Phone: [facility] 09-26-2013 tetanus toxoid, redu lenin diphtheria toxoid, and acellular pertussis vaccine, adsorbed Samantha Deleon ESTHETICIAN/OWNER.ADMITTING COORDINATOR Work Phone: [facility] 09-15-2013 influenza virus vacc ine, unspecified formulation Samantha Deleon ESTHETICIAN/OWNER.ADMITTING COORDINATOR Work Phone: [facility] Work Phone: 09-15-2013 influenza, injectabl e, quadrivalent, preservative free DO Milana Garcia Work Phone: [facility] 09-15-2013 influenza, seasonal, injectable [place] [facility] [place] Payer Category Payer Self-pay 2022 Unknown 2020 Unknown [id number] 2017 Unknown [id number] Private Health Insurance [facility] [id number] Self-pay [id number] Unknown [id number] Unknown [id number] 62 Unknown [id number] 62 Unknown [id number] 62 Unknown [id number] 62 Unknown [id number] 62 Unknown [id number] 62 Unknown [id number] 62 Unknown [id number] 62 Unknown [id number] 62 Unknown [id number] 62 Unknown [id number] 62 Unknown [id number] 2.16.840.1.216902.3.579.2.4 62 Unknown [id number] 2.16.840.1.567357.3.579.2.4 62 Unknown [id number] 2.16.840.1.374746.3.579.2.4 62 Unknown [id number] 2.16.840.1.778840.3.579.2.4 62 Unknown [id number] 2.16.840.1.887122.3.579.2.4 62 Unknown [id number] 2.16.840.1.866366.3.579.2.4 62 Unknown [id number] 2.16.840.1.279751.3.579.2.4 62 Unknown [id number] 2.16.840.1.000224.3.579.2.4 62 Unknown [id number] 2.16.840.1.262780.3.579.2.4 62 Unknown [id number] 2.16.840.1.543022.3.579.2.4 62 Unknown [id number] 2.16.840.1.785195.3.579.2.4 62 Unknown [id number] 2.16.840.1.103224.3.579.2.4 62 Unknown [id number] 2.16.840.1.779919.3.579.2.4 62 Unknown [id number] 2.16.840.1.678302.3.579.2.4 62 Unknown [id number] 2.16.840.1.955567.3.579.2.4 62 Unknown [id number] 2.16.840.1.929967.3.579.2.4 62 Unknown [id number] 2.16.840.1.145721.3.579.2.4 62 Unknown [id number] 2.16.840.1.268322.3.579.2.4 62 Unknown [id number] 2.16.840.1.773294.3.579.2.4 62 Unknown [id number] 2.16.840.1.147680.3.579.2.4 62 Unknown [id number] 2.16.840.1.692589.3.579.2.4 62 Unknown [id number] 2.16.840.1.515065.3.579.2.4 62 Unknown [id number] 2.16.840.1.427090.3.579.2.4 62 Unknown [id number] 2.16.840.1.715988.3.579.2.4 62 Social History Date Type Detail Facility [facility] Start: 02-22-2022 End: 01-24-2024 Tobacco smoking consumption unknown [facility] Start: 04-14-2021 Sober [facility] Start: 04-14-2021 None [facility] Start: 04-14-2021 Cigarettes [facility] Start: 1975 Sex Assigned At Female [facility] Start: 07-21-2022 [facility] Start: 11-29-1996 End: 07-11-2020 History of tobacco use Current smoker [facility] Start: 11-29-1996 End: 07-11-2020 History of tobacco use Cigarette Smoker [facility] Start: 11-04-2020 End: 07-21-2022 Cigarettes smoked current (pack per day) - Reported 0.5 [facility] Start: 07-21-2022 Tobacco use and exposure Smokeless tobacco non-user [facility] Start: 07-21-2022 End: 04-22-2024 Alcohol intake Current drinker of alcohol (finding) [facility] Start: 06-05-2020 End: 08-01-2020 History SDOH Alcohol Frequency 3 [facility] Start: 06-05-2020 End: 08-01-2020 History SDOH Alcohol Std Drinks 1 [facility] Start: 06-05-2020 End: 08-01-2020 History SDOH Alcohol Binge 2 [facility] Start: 09-16-2018 History SDOH 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 [facility] Start: 01-15-2020 History SDOH Social Connections Living 8 [facility] Start: 06-05-2020 History SDOH Physica l Activity DPW 0 [facility] Start: 07-01-2020 History SDOH Financial 5 [facility] Start: 01-14-2020 Education 12 [facility] Start: 07-21-2022 Tobacco Comment stopped 3 weeks ago [facility] Start: 09-26-2014 With Family [facility] Start: 06-05-2020 End: 11-04-2020 Social connection and isolation panel [facility] Frequency of Communication with Friends and Family Not on file [facility] Do you belong to any clubs or organizations such as adventist groups, unions, fraternal or athletic groups, or school groups? No [facility] How often to you hav e a drink containing alcohol? 2-4 times a month [facility] How many standard drinks containing alcohol do you have on a typical day? 1 or 2 [facility] How often do you hav e 6 or more drinks on 1 occasion? Less than monthly [facility] Do you feel stress - tense, restless, nervous, or anxious, or unable to sleep at night because your mind is troubled all the time - these days [OSQ] To some extent [facility] (I/We) worried mary er (my/our) food would run out before (I/we) got money to buy more. Never true [facility] Start: 07-15-2020 Gender identity Identifies as female gender (finding) [facility] Start: 07-15-2020 Sexual orientation Heterosexual (chucky acevedo) [facility] Start: 04-04-2025 Tobacco smoking stat us [facility] Current some day smoker [facility] Start: 04-11-2025 End: 08-13-2025 Tobacco smoking status NHIS Current Light tobacco smoker [facility] NEGATED: Highlighted row [facility] NEGATED: Highlighted row Not [facility] Goals Date Patient Goal Desired Activity /State Functional Status Date Assessment Result Facility 08-15-2025 Functional status Ambulates [facility] Work Phone: 07-20-2025 Functional status Up ad seble [facility] Work Phone: 05-28-2025 Functional status Ambulates;Up ad seble [facility] Work Phone: 05-27-2025 Functional status None [facility] Work Phone: 05-06-2025 Functional status Bathroom Privilege [facility] Work Phone: 04-11-2023 Functional status Activity Ability Indepe ndent [facility] Work Phone: 04-11-2023 Functional status Ambulates;Bathroom Priv ilege [facility] Work Phone: 11-19-2022 Functional status Ambulates [facility] Work Phone: 11-18-2022 Functional status Assistive Devices None [facility] Work Phone: Mental Status Date Assessment Result Facility 08-15-2025 Cognitive function Appropriate [facility] Work Phone: 08-15-2025 Cognitive function Voice/Name [facility] Work Phone: 08-12-2025 Cognitive function Voice/Name [facility] Work Phone: 07-19-2025 Cognitive function Voice/Name [facility] Work Phone: 05-28-2025 Cognitive function Voice/Name [facility] Work Phone: 05-06-2025 Cognitive function Voice/Name [facility] Work Phone: 04-11-2025 Cognitive function Voice/Name [facility] Work Phone: 01-24-2024 Cognitive function Voice/Name [facility] Work Phone: 10-10-2023 Cognitive function Level Of Cons ciousness Awake;Alert;Appropriate [facility] Work Phone: 07-29-2023 Cognitive function Level Of Cons ciousness Awake;Alert;Appropriate;Follow s Commands [facility] Work Phone: 05-24-2023 Cognitive function Voice/Name [facility] Work Phone: 05-04-2023 Cognitive function Level Of Cons ciousness Awake;Alert;Appropriate [facility] Work Phone: 04-11-2023 Cognitive function Voice/Name [facility] Work Phone: 04-09-2023 Cognitive function Level Of Cons ciousness Awake;Alert;Appropriate;Follow s Commands [facility] Work Phone: 03-22-2023 Cognitive function Level Of Cons ciousness Awake;Alert;Appropriate;Follow s Commands [facility] Work Phone: 01-21-2023 Cognitive function Voice/Name [facility] Work Phone: 11-19-2022 Cognitive function Voice/Name [facility] Work Phone: 09-05-2022 Cognitive function Level Of Cons ciousness Awake;Alert;Appropriate [facility] Work Phone: 02-22-2022 Cognitive function Level Of Cons ciousness Awake;Alert;Appropriate;Follow s Commands;Responds to vocal stimuli [facility] Work Phone: Clinical Notes 07-17-2019 to 08-15-2025 Note Date & Type Note Facility 08-15-2025 Discharge summary Note Date/Time August 15, 2025 3:02pm [facility] Medical Records Department [address] [place], [place] [address]alex[place] [address] Discharge Summary 08/15/25 1455 MR#: [id number] Acct: [id number] Name: JOSEPH RINCON Rep #:[id number] : 1975 50 From: Zev Zhang PCP: Dr. Abisai Haley MD Status:ADM IN [facility] Providers Date of Admission: 08/12/25 Primary Care Physician: Abisai Haley MD Consultations 08/13/25 15:40 Consult: Infectious Disease Routine Consulting Provider: Praful Olivo Reason for Consult: GNR bacteremia, DKA, alcoholic EMERGENT Consult: No MD Notified: Yes Date Notified: 08/13/25 Time Notified: 15:40 Method of Notification: Text Reason For Visit: DKA Diagnosis Discharge Diagnosis (1) DKA (diabetic ketoacidoses): Status: Acute Code(s): E11.10 - Type 2 diabetes mellitus with ketoacidosis without coma (2) Acute on chronic pancreatitis: Status: Chronic Code(s): K85.90 - Acute pancreatitis without necrosis or infection, unspecified; K86.1 - Other chronic pancreatitis (3) Bacteremia due to Gram-negative bacteria: Status: Acute Code(s): R78.81 - Bacteremia Plan This is 50-year-old female is being admitted for persistent vomiting for more than 24 hours along with decreased oral intake, abdominal pain. 1. DKA with history of type 2 diabetes mellitus with severe electrolyte abnormality: Patient is being admitted in ICU. Glucoses around 300 not very high because patient is on Jardiance, glimepiride and metformin. Needs to be aggressive rehydration, 2 L normal saline, 1 L/h and then D5 half NS plus KCl at250 mL for another 2 L. Reevaluate fluid status afterwards with intake and output and IV fluid according. Insulin drip after 2 hours of IV fluid rehydration. Follow DKA protocol 08/13: Anion gap closed x 2. Sodium potassium and chloride are in normal range. Hypomagnesemia and hypophosphatemia. Magnesium and phosphorus IV replacement. Patient is still very symptomatic with abdominal pain, nausea and sore throat therefore continue IV fluid D5 half NS plus KCl at 150 mL/h and slow IV insulin drip. Speech therapy evaluation. 08/14: Glucose is 133- 223. Hypokalemia, potassium replaced. Hypomagnesemia corrected. D5 half NS +20 mL KCl. Lantus dose increased. Patient does not have good oral intake because of sore throat therefore IV fluid ordered. Oropharyngeal dysphagia. 08/15: Patient has mild sore throat. Evaluated by speech therapist. Regular texture diet with thin liquid. Advised outpatient speech/swallow therapy. If not getting better in 1 month follow-up with ENT Dr. Rashawn Smith. Gram-negative ermias bacteremia due to Pasteurella multocida: Blood culture prelim positive gram-negative rods. Identified as Pasteurella multocida, beta-lactamase negative. Continue IV Unasyn. ID consult reviewed 08/15: Gram-negative ermias Pasteurella multocida. Discharged on prescription of 5 more days of Augmentin as suggested by ID. Probably scratched by the dog as source of bacteremia. 2. Complex acid-base disorder, high anion gap metabolic acidosis and severe metabolic alkalosis with hypokalemia,: Patient has high anion gap metabolic acidosis, metabolic alkalosis from persistent vomiting, hyperchloremic HCl rich fluid and hypokalemia: BMP shows chloride very low 73 probably due to persistentHCl rich vomiting with reflex physiologic bicarb conservation, 17.4, anion gap 48. IV fluid normal saline and IV KCl ordered. Insulin drip. Sodium is normal. 08/13: Metabolic alkalosis. High anion gap metabolic acidosis. Beta-hydroxybutyrate normal. Anion gap closed x 2. Repeat bicarb is 26.5. [id number]. 08/15: Acid-base disorder resolved. 3. Acute on chronic recurrent alcoholic pancreatitis: Patient has right upper quadrant/epigastric tenderness and elevated lipase therefore meets criteria for acute pancreatitis. Last admitted in June 2025 for similar acute on chronic pancreatitis. IV fluid normal saline. Continue NPO. 08/13: CT scan shows moderate to severe fatty infiltration of the liver. No focal mass. Pancreas mild inflammation adjacent to the tail of pancreas. No pancreatic pseudocyst/phlegmon or evidence of necrosis. Biliary system negative. Status postcholecystectomy. 08/15: Patient still has mild abdominal pain. Advised to quit alcohol. 4. LUI due to severe dehydration and DKA, prerenal in etiology: BUN/creatinine ratio 10.8. BUN 20, creatinine 1.82. 08/13: BUN/creatinine 8/0.64. LUI resolved. 5. Sore throat possible acute tonsillitis: Triple PCR for SARS-CoV-2, flu and RSV are negative. Strep throat negative. Started on IV Unasyn. Cepacol conservative management Oropharyngeal dysphagia due to sore throat: BMX ordered. Modified barium swallow ordered for tomorrow AM. 6. Acute on chronic alcoholic hepatitis: AST 408, ALT 208, total bili 1.22. Icterus positive. Monitor liver chemistry 08/13: Repeat liver chemistry ordered 08/15 report lab request shows improvement in AST and ALT. Alkaline phosphatase elevated. Total bilirubin high normal. 7. Chronic alcohol use disorder: She stopped drinking alcohol about 2 weeks ago. Currently not having any acute alcohol withdrawal symptoms like tremors, disorientation delirium. CIWA monitor. 8. COPD: Currently not in exacerbation. Currently smokes about half pack per day. Advised quitting smoking. 9. Dyslipidemia: On statin. Hold it for now 10. Depression with anxiety: Hold oral medications. Patient on citalopram bupropion and buspirone 11. Severe malnutrition due to chronic alcohol use and inadequate oral intake. It is evidenced by: 10% unintentional weight loss. Lift Supervisor consult DVT prophylaxis: Patient has intermittent thrombocytopenia during previous hospitalization probably due to alcohol. Current 100 81K. Patient also has history of anemia and currently H&H 14.1/41.3 probably due to hemoconcentration. Enoxaparin 40 mg subcu daily Living will/advanced directive/end of life care: Patient does not have living will or advanced directive. After discussion of benefits/risks procedures involved with full code, DNR CC arrest and DNR CC, the patient opted for full code. Patient does want artificial life support including intubation, tube feed, ventilator and/chest compression, central venous catheter, vasopressor and DC shock if needed Discharge medication reconciliation done. Discharge follow-up instructions completed. Discharge process discussed with the patient and all questions wereanswered to patient's satisfaction. Follow with PCP in 1 to 2 weeks Total time spent, exact 35 minutes on discharge meds reconciliation, examination, coordination of care with nurses and ancillary staff, review of imaging and blood test and discussion with the patient on follow-up instructions. Microbiology Past 72 Hours 08/12/25 13:10 Blood Culture (Wb) - Anticubital Right Blood Culture - Preliminary Pasteurella multocida 08/12/25 20:00 Urine, Clean Catch Urine Culture - Final Mixed Gram Pos & Gram Neg Org 08/12/25 20:00 Urine, Clean Catch Streptococcus pneumoniae Antigen (M - Final 08/12/25 20:30 Mucosa - Nasopharyngeal Coronavirus COVID-19 PCR - Final 08/12/25 13:40 Nasal Secretion MRSA (PCR) - Final 08/12/25 08:32 Swab (Method) Streptococcus pyogenes (PCR) - Final 08/12/25 08:32 Mucosa - Nose SARS-CoV-2, Influenza & RSV (PCR) - Final Laboratory Results 08/13/25 13:08: Magnesium 1.0 L 08/13/25 14:00: POC Glucose 130 H 08/13/25 16:29: POC Glucose 110 H 08/13/25 21:53: POC Glucose 130 H 08/14/25 05:08: Sodium 140, Potassium 3.0 L, Chloride 96 L, Carbon Dioxide 30.8,Anion Gap 13, BUN 3 L, Creatinine 0.44 L, Estim Creat Clear Calc 135.02, Est GFR(MDRD) Non-Af 119, BUN/Creatinine Ratio 7.8 L, Glucose 131 H, Calcium 7.8, Magnesium 1.9, Total Bilirubin 1.04, Direct Bilirubin 0.66 H, AST 110 H, ALT 40 H, Alkaline Phosphatase 229 H, Total Protein 5.6 L, Albumin 3.1 L, Globulin 2.6 08/14/25 06:39: POC Glucose 138 H 08/14/25 11:21: POC Glucose 223 H Medications at Discharge Home Medications metformin 500 mg tablet 500 ea PO BID DIABETES 10/31/22 aspirin 81 mg chewable tablet 81 mg PO DAILY@0800 #30 tabs 11/19/22 bupropion HCl 150 mg 24 hr tablet, extended release 150 mg PO DAILY 01/21/23 montelukast 10 mg tablet (Singulair) 10 mg PO DAILY 04/09/23 cholecalciferol (vitamin D3) 50 mcg (2,000 unit) capsule 50 mcg PO DAILY 08/25/23 albuterol sulfate 90 mcg/actuation [...] mg capsule 40 mg PO DAILY 07/17/25 lorazepam 1 mg tablet 1 mg PO BID 08/12/25 naltrexone 50 mg tablet 50 mg PO DAILY 08/12/25 amoxicillin 875 mg-potassium clavulanate 125 mg tablet 1 tab PO BID 5 days #10 tabs 08/15/25 magnesium chloride 64 mg (magnesium chloride) tablet,delayed release (Mag 64) 128 mg (2 x 64 mg) PO BID 7 days #28 tabs 08/15/25 pantoprazole 40 mg tablet,delayed release 40 mg PO DAILY 30 days #30 tabs 08/15/25 potassium chloride 20 mEq tablet,extended release (K-Tab) 40 meq (2 x 20 mEq) PODAILY 1 week #14 tabs 08/15/25 Physical Exam Narrative Seen and examined. Patient complain of sore throat. She is not vomiting. Patient had modified barium swallow test done. No fever. Still complain of abdominal pain and epigastric region/RUQ Physical exam General: Alert, Oriented x3, Cooperative HEENT: Mild tenderness over throat region. Atraumatic, PERRLA, EOMI, Normocephalic. Oral: Oral mucosa moist. Tonsils enlarged probably chronic. No oral ulcer. Neck: Supple, No JVD, Negative Carotid Bruits Chest wall/Lungs: Air entry diminished in bilateral lung bases. No crepitation/rhonchi Cardiovascular: Regular rate and rhythm, Normal S1,S2, No M/G/R Abdomen: Bowel Sounds Present, Soft, mild tenderness over right upper quadrant/epigastric region : No dysuria. No renal angle tenderness. No suprapubic tenderness. Extremities: No edema, Capillary Refill Less than 3 Seconds Skin: No rashes, No breakdown Musculoskeletal: No Tenderness to Palpation of Joints or Extremities. ROM intact Neurological: Cranial nerves II-XII grossly intact, DTR 2+/4. No acute focal neurological deficit. Psych/Mental Status: Flat affect Medical Records Data Medical Nutrition Assessment Dietitian: Malnutrition Criteria Met Start: 08/13/25 09:43 Freq: Status: Active Protocol: Document 08/13/25 09:43 [facility] (Rec: 08/13/25 09:43 SLA [id number]) Nutrition Malnutrition Evidence of Yes Malnutrition Exists Clinical Problem Acute Disease or Injury Related Malnutrition Etiology Pt with gi dysfunction w/ n/v bellhop service captain and po intake inadequate to meet estimated nutritional needs Signs/Symptoms evidenced by n/v bellhop service captain x 24 hours and po intake meeting < 75% of est nutritional needs x 2 wks bellhop service captain, also w/ 18.3 % unplanned wt loss x 9 mo and 8.1% unplanned wt loss x < 1 month bellhop service captain - sig for malnutrition. Status Active Problem Recommendation Dietitian As medically able, rec URSZULA to liberal CHO Controlled Recommendations/ diet d/t signs and symptoms of malnutrition Changes As medically able, rec glucerna shake 4x/day w/ medpass for increased nutrition if consumed. Weight / BMI Weight Weight: 118 lb 9.739 oz Body Mass Index (BMI) 20.3 ABG / Lab / Microbiology Data 08/13/25 04:30 08/15/25 05:22 Laboratory: Laboratory Results - last 24 hr 08/14/25 16:18: POC Glucose 112 H 08/14/25 21:21: POC Glucose 177 H 08/15/25 05:22: Sodium 140, Potassium 3.4, Chloride 98, Carbon Dioxide 31.5, Anion Gap 11, BUN 4, Creatinine 0.39 L, Estim Creat Clear Calc 149.83, Est GFR (MDRD) Non-Af 123, BUN/Creatinine Ratio 9.5 L, Glucose 162 H, Calcium 8.1, TotalBilirubin 1.19, Direct Bilirubin 0.72 H, AST 111 H, ALT 37 H, Alkaline Phosphatase 344 H, Total Protein 5.4 L, Albumin 3.1 L, Globulin 2.4 08/15/25 06:32: POC Glucose 179 H 08/15/25 11:08: POC Glucose 268 H Microbiology: Microbiology 08/12/25 13:10 Blood Culture (Wb) - Anticubital Right Blood Culture - Final Pasteurella multocida 08/12/25 20:00 Urine, Clean Catch Urine Culture - Final Mixed Gram Pos & Gram Neg Org 08/12/25 20:00 Urine, Clean Catch Streptococcus pneumoniae Antigen (M - Final 08/12/25 20:30 Mucosa - Nasopharyngeal Coronavirus COVID-19 PCR - Final 08/12/25 13:40 Nasal Secretion MRSA (PCR) - Final 08/12/25 08:32 Swab (Method) Streptococcus pyogenes (PCR) - Final 08/12/25 08:32 Mucosa - Nose SARS-CoV-2, Influenza & RSV (PCR) - Final D/C Instructions Weight Bearing Status: Weight bearing as tolerated Additional Activity Instructions: Outpatient speech therapy. Call your doctor if you observe: Fever of 101 or Higher, Coldness, Increased Pain, Numbness or Tingling, Change in Color, Inability to urinate, Inability to have a bowel movement, Shortness of breath, Dizziness, Fainting spells, Swellingin the ankles, Chest pain, Prolonged hiccupping, Increased palpitations (irregular heartbeat) and Calf discomfort DC O2, CPAP, BIPAP Needs Home O2 Discharge instructions: No When: IN 2 WEEKS Meaningful Use Info Meaningful Use Meaningful Use Diagnoses (Choose all that apply): None applicable Discharge Plan Admission Admit Date/Time: 08/12/25 12:43 Primary Reason for Your Visit: DKA resolved. Attending Provider: Zev Tucker Primary Care Provider: Abisai Haley Consulting Providers: Praful Olivo Discharge Orders/Prescriptions Prescriptions: New potassium chloride [K-Tab] 20 mEq tablet extended release 40 meq PO DAILY 7 Days Qty: 14 0RF amoxicillin-pot clavulanate 875-125 mg tablet 1 tab PO BID 5 Days Qty: 10 0RF magnesium chloride [Mag 64] 64 mg Tablet,Delayed Release (Dr/Ec) 128 mg PO BID 7 Days Qty: 28 0RF Continued metformin 500 mg tablet 500 ea PO BID cholecalciferol (vitamin D3) 50 mcg [...] 10 mg Tablet 10 mg PO DAILY lisinopril 40 mg tablet 40 mg PO DAILY levocetirizine 5 mg tablet 5 mg PO DAILY fluoxetine 40 mg capsule 40 mg PO DAILY atorvastatin 40 mg tablet 40 mg PO QHS naltrexone 50 mg tablet 50 mg PO DAILY lorazepam 1 mg tablet 1 mg PO BID metoprolol succinate 25 mg [...] 4 mg PO DAILY Qty: 30 0RF Changed pantoprazole 40 mg tablet,delayed release (DR/EC) 40 mg PO DAILY 30 Days Qty: 30 0RF Referrals / Follow Up: Abisai Haley MD [Primary Care Provider, Family Practice] - Within 1 Week Rashawn Smith MD [Med Staff - Active Staff, Ear Nose Throat (ENT)] - Within 1 Month Referral Note: If patient has persistent sore throat for laryngeal evaluation Disposition Disposition (needs filled in before D/C Order can be placed): Home, Self Care Charges/Coding Visit Charges Inpatient E&M: 15811 Disch Hosp >30min 08/15/25 1502 <Electronically signed by Zev Tucker MD> Cosigner Signature (if applicable): CC: Dr. Abisai Haley MD; Dr. Zev Tucker MD~ Signed [facility] Work Phone: 1(827) 892-174909-17-2025 Discharge summary Author Zev Tucker [facility] Note Date/Time August 15, 2025 2:55pm [facility] Medical Records Department [address] [place] [id number] Instructions for Home/Discharge Instructions 08/15/25 1447 MR#: [id number] Acct: [id number] Name: JOSEPH RINCON Rep #:[id number] : 1975 50 From: Zev Zhang PCP: Dr. Abisai Haley MD Status:ADM IN Discharge Instructions DC O2, CPAP, BIPAP needs Home O2 Discharge instructions: No Dressing / Incision Discharge Activity: Return to Normal Activity Weight Bearing Status: Weight bearing as tolerated Dressing / Incision Call your doctor if you observe: Fever of 101 or Higher, Coldness, Increased Pain, Numbness or Tingling, Change in Color, Inability to urinate, Inability to have a bowel movement, Shortness of breath, Dizziness, Fainting spells, Swellingin the ankles, Chest pain, Prolonged hiccupping, Increased palpitations (irregular heartbeat) and Calf discomfort Follow Up Care When: IN 2 WEEKS Test Results: Test results from this visit will be discussed in further detail at your follow- up appointment, if applicable. Discharge Plan Admission Admit Date/Time: 08/12/25 12:43 Primary Reason for Your Visit: DKA resolved. Attending Provider: Zev Tucker Primary Care Provider: Abisai Haely Consulting Providers: Praful Olivo Discharge Orders/Prescriptions Prescriptions: New potassium chloride [K-Tab] 20 mEq tablet extended release 40 meq PO DAILY 7 Days Qty: 14 0RF amoxicillin-pot clavulanate 875-125 mg tablet 1 tab PO BID 5 Days Qty: 10 0RF magnesium chloride [Mag 64] 64 mg Tablet,Delayed Release (Dr/Ec) 128 mg PO BID 7 Days Qty: 28 0RF Continued metformin 500 mg tablet 500 ea PO BID cholecalciferol (vitamin D3) 50 mcg [...] 10 mg Tablet 10 mg PO DAILY lisinopril 40 mg tablet 40 mg PO DAILY levocetirizine 5 mg tablet 5 mg PO DAILY fluoxetine 40 mg capsule 40 mg PO DAILY atorvastatin 40 mg tablet 40 mg PO QHS naltrexone 50 mg tablet 50 mg PO DAILY lorazepam 1 mg tablet 1 mg PO BID metoprolol succinate 25 mg [...] 4 mg PO DAILY Qty: 30 0RF Changed pantoprazole 40 mg tablet,delayed release (DR/EC) 40 mg PO DAILY 30 Days Qty: 30 0RF Referrals / Follow Up: Abisai Haley MD [Primary Care Provider, Family Practice] - Within 1 Week Disposition Disposition (needs filled in before D/C Order can be placed): Home, Self Care 08/15/25 1455<Electronically signed by Zev Tucker MD>Zev Tucker MD CC: Dr. Abisai Haley MD; Dr. Praful Olivo MD ~ Signed [facility] Work Phone: [phone]) 615-947009-17-2025 Procedure [facility] 08-15-2025 Progress note Author [facility] Note Date/Time August 15, 2025 1:45pm [facility] Medical Records Department [address] [place] [address] Progress Note - Infect Disease 08/15/25 1344 MR#: [id number] Acct: [id number] Name: JOSEPH RINCON Rep #:[id number] : 1975 50 From: Praful katz MD PCP: Dr. Abisai Haley MD Status:ADM IN Location: [place] [address] Physical Exam Narrative Feeling better, less nausea and abd discomfort. No fever. Has scratches from her dogs. Const alert and no apparent distress General Appearance: cooperative Resp normal air movement and clear to auscultation bilaterally Cardio regular rate and regular rhythm GI soft to palpation, non-tender and non-distended Skin no rashes or lesions noted ID ID: Route of nutrition/ use of supplements: [] Nutritional Intake: [] IV Site: [] [place] Catheter: [] Assessment & Plan Assessment/Plan (1) DKA (diabetic ketoacidoses): (2) Acute on chronic pancreatitis: (3) Bacteremia due to Gram-negative bacteria: PLAN: Pasteurella (+), suspect dogs at home as source. Cont unasyn while inpatient. Feeling better, wbc normal. Ok for home with 5 days po augmentin 875mg bid. Will follow 08/15/25 1345 <Electronically signed by Praful Olivo MD> Cosigner Signature (if applicable): CC: ~ Signed [facility] Work Phone: [phone]) 930-661609-17-2025 [facility]09-16-2025 Progress note Author Zev Tucker [facility] Note Date/Time August 14, 2025 2:11pm [facility] Medical Records Department [address] [place] [address] Progress Note - Hospitalist 08/14/25 1400 MR#: [id number] Acct: [id number] Name: JOSEPH RINCON Rep #:[id number] : 1975 50 From: Zev Zhang PCP: Dr. Abisai Haley MD Status:ADM IN Location: [place] [address]- 1 Reason for Visit Chief Complaint: Persistent vomiting for 24 hours, inadequate oral intake for 2 weeks Objective Data Objective Data Vital Signs: Vital Signs Temp Pulse Resp BP Pulse Ox O2 Del Method O2 Flow Rate 98.0 F 91 16 155/93 H 92 Room Air 2 08/14/25 13:40 08/14/25 13:40 08/14/25 13:40 08/14/25 13:40 08/14/25 13:40 08/14/25 13:40 08/13/25 09:00 Oxygen Flow Rate (L/min) 2 Oxygen Delivery Method Room Air Weight: 121 lb 7.595 oz Body Mass Index (BMI) 20.8 Intake & Output: Intake and Output for Last 24 Hours 08/12/25 08/13/25 08/14/25 23:59 23:59 23:59 Intake Total 5041.39 / 5041.39 5843.92 / 5843.92 500 / 500 Output Total 0 / 0 1700 / 1700 Balance 5041.39 / 5041.39 4143.92 / 4143.92 500 / 500 Medical Nutrition Assessment Dietitian: Malnutrition Criteria Met Start: 08/13/25 09:43 Freq: Status: Active Protocol: Document 08/13/25 09:43 YASEMIN (Rec: 08/13/25 09:43 SLA [id number]) Nutrition Malnutrition Evidence of Yes Malnutrition Exists Clinical Problem Acute Disease or Injury Related Malnutrition Etiology Pt with gi dysfunction w/ n/v bellhop service captain and po intake inadequate to meet estimated nutritional needs Signs/Symptoms evidenced by n/v bellhop service captain x 24 hours and po intake meeting < 75% of est nutritional needs x 2 wks bellhop service captain, also w/ 18.3 % unplanned wt loss x 9 mo and 8.1% unplanned wt loss x < 1 month bellhop service captain - sig for malnutrition. Status Active Problem Recommendation Dietitian As medically able, rec URSZULA to liberal CHO Controlled Recommendations/ diet d/t signs and symptoms of malnutrition Changes As medically able, rec glucerna shake 4x/day w/ medpass for increased nutrition if consumed. Lab / Micro Data 08/13/25 04:30 08/14/25 05:08 Labs: Laboratory Results - last 24 hr 08/13/25 13:08: Magnesium 1.0 L 08/13/25 14:00: POC Glucose 130 H 08/13/25 16:29: POC Glucose 110 H 08/13/25 21:53: POC Glucose 130 H 08/14/25 05:08: Sodium 140, Potassium 3.0 L, Chloride 96 L, Carbon Dioxide 30.8,Anion Gap 13, BUN 3 L, Creatinine 0.44 L, Estim Creat Clear Calc 135.02, Est GFR(MDRD) Non-Af 119, BUN/Creatinine Ratio 7.8 L, Glucose 131 H, Calcium 7.8, Magnesium 1.9, Total Bilirubin 1.04, Direct Bilirubin 0.66 H, AST 110 H, ALT 40 H, Alkaline Phosphatase 229 H, Total Protein 5.6 L, Albumin 3.1 L, Globulin 2.6 08/14/25 06:39: POC Glucose 138 H 08/14/25 11:21: POC Glucose 223 H Micro: Microbiology 08/12/25 13:10 Blood Culture (Wb) - Anticubital Right Blood Culture - Preliminary Pasteurella multocida 08/12/25 20:00 Urine, Clean Catch Urine Culture - Final Mixed Gram Pos & Gram Neg Org 08/12/25 20:00 Urine, Clean Catch Streptococcus pneumoniae Antigen (M - Final 08/12/25 20:30 Mucosa - Nasopharyngeal Coronavirus COVID-19 PCR - Final 08/12/25 13:40 Nasal Secretion MRSA (PCR) - Final 08/12/25 08:32 Swab (Method) Streptococcus pyogenes (PCR) - Final 08/12/25 08:32 Mucosa - Nose SARS-CoV-2, Influenza & RSV (PCR) - Final Physical Exam Narrative Seen and examined. Patient complain of sore throat. She is not vomiting. Plan for MBS swallow test tomorrow No fever. Still complain of abdominal pain and epigastric region/RUQ Physical exam General: Alert, Oriented x3, Cooperative HEENT: Mild tenderness over throat region. Atraumatic, PERRLA, EOMI, Normocephalic. Oral: Oral mucosa very dry. Tonsils enlarged. No oral ulcer. Neck: Supple, No JVD, Negative Carotid Bruits Chest wall/Lungs: Air entry diminished in bilateral lung bases. No crepitation/rhonchi Cardiovascular: Regular rate and rhythm, Normal S1,S2, No M/G/R Abdomen: Bowel Sounds Present, Soft, mild tenderness over right upper quadrant/epigastric region : No dysuria. No renal angle tenderness. No suprapubic tenderness. Extremities: No edema, Capillary Refill Less than 3 Seconds Skin: No rashes, No breakdown Musculoskeletal: No Tenderness to Palpation of Joints or Extremities. ROM intact Neurological: Cranial nerves II-XII grossly intact, DTR 2+/4. No acute focal neurological deficit. Psych/Mental Status: Flat affect Assessment & Plan Assessment/Plan (1) DKA (diabetic ketoacidoses): PLAN: Plan This is 50-year-old female is being admitted for persistent vomiting for more than 24 hours along with decreased oral intake, abdominal pain. 1. DKA with history of type 2 diabetes mellitus with severe electrolyte abnormality: Patient is being admitted in ICU. Glucoses around 300 not very high because patient is on Jardiance, glimepiride and metformin. Needs to be aggressive rehydration, 2 L normal saline, 1 L/h and then D5 half NS plus KCl at250 mL for another 2 L. Reevaluate fluid status afterwards with intake and output and IV fluid according. Insulin drip after 2 hours of IV fluid rehydration. Follow DKA protocol 08/13: Anion gap closed x 2. Sodium potassium and chloride are in normal range. Hypomagnesemia and hypophosphatemia. Magnesium and phosphorus IV replacement. Patient is still very symptomatic with abdominal pain, nausea and sore throat therefore continue IV fluid D5 half NS plus KCl at 150 mL/h and slow IV insulin drip. Speech therapy evaluation. 08/14: Glucose is 133- 223. Hypokalemia, potassium replaced. Hypomagnesemia corrected. D5 half NS +20 mL KCl. Lantus dose increased. Patient does not have good oral intake because of sore throat therefore IV fluid ordered. Oropharyngeal dysphagia. Gram-negative ermias bacteremia: Blood culture prelim positive gram-negative rods. Identified as Pasteurella multocida, beta-lactamase negative. Continue IV Unasyn. ID consult reviewed 2. Complex acid-base disorder, high anion gap metabolic acidosis and severe metabolic alkalosis with hypokalemia,: Patient has high anion gap metabolic acidosis, metabolic alkalosis from persistent vomiting, hyperchloremic HCl rich fluid and hypokalemia: BMP shows chloride very low 73 probably due to persistentHCl rich vomiting with reflex physiologic bicarb conservation, 17.4, anion gap 48. IV fluid normal saline and IV KCl ordered. Insulin drip. Sodium is normal. 08/13: Metabolic alkalosis. High anion gap metabolic acidosis. Beta- hydroxybutyrate normal. Anion gap closed x 2. Repeat bicarb is 26.5. [id number]. 3. Acute on chronic recurrent alcoholic pancreatitis: Patient has right upper quadrant/epigastric tenderness and elevated lipase therefore meets criteria for acute pancreatitis. Last admitted in June 2025 for similar acute on chronic pancreatitis. IV fluid normal saline. Continue NPO. 08/13: CT scan shows moderate to severe fatty infiltration of the liver. No focal mass. Pancreas mild inflammation adjacent to the tail of pancreas. No pancreatic pseudocyst/phlegmon or evidence of necrosis. Biliary system negative. Status postcholecystectomy. 4. LUI due to severe dehydration and DKA, prerenal in etiology: BUN/creatinine ratio 10.8. BUN 20, creatinine 1.82. 08/13: BUN/creatinine 8/0.64. LUI resolved. 5. Sore throat possible acute tonsillitis: Triple PCR for SARS-CoV-2, flu and RSV are negative. Strep throat negative. Started on IV Unasyn. Cepacol conservative management Oropharyngeal dysphagia due to sore throat: BMX ordered. Modified barium swallow ordered for tomorrow AM. 6. Acute on chronic alcoholic hepatitis: AST 408, ALT 208, total bili 1.22. Icterus positive. Monitor liver chemistry 08/13: Repeat liver chemistry ordered 7. Chronic alcohol use disorder: She stopped drinking alcohol about 2 weeks ago. Currently not having any acute alcohol withdrawal symptoms like tremors, disorientation delirium. CIWA monitor. 8. COPD: Currently not in exacerbation. Currently smokes about half pack per day. Advised quitting smoking. 9. Dyslipidemia: On statin. Hold it for now 10. Depression with anxiety: Hold oral medications. Patient on citalopram bupropion and buspirone 11. Severe malnutrition due to chronic alcohol use and inadequate oral intake. It is evidenced by: 10% unintentional weight loss. Lift Supervisor consult DVT prophylaxis: Patient has intermittent thrombocytopenia during previous hospitalization probably due to alcohol. Current 100 81K. Patient also has history of anemia and currently H&H 14.1/41.3 probably due to hemoconcentration. Enoxaparin 40 mg subcu daily Living will/advanced directive/end of life care: Patient does not have living will or advanced directive. After discussion of benefits/risks procedures involved with full code, DNR CC arrest and DNR CC, the patient opted for full code. Patient does want artificial life support including intubation, tube feed, ventilator and/chest compression, central venous catheter, vasopressor and DC shock if needed Total time spent in [id number] encounter in discussion of advanced directive 17 minutes. Microbiology Past 72 Hours 08/12/25 13:10 Blood Culture (Wb) - Anticubital Right Blood Culture - Preliminary Pasteurella multocida 08/12/25 20:00 Urine, Clean Catch Urine Culture - Final Mixed Gram Pos & Gram Neg Org 08/12/25 20:00 Urine, Clean Catch Streptococcus pneumoniae Antigen (M - Final 08/12/25 20:30 Mucosa - Nasopharyngeal Coronavirus COVID-19 PCR - Final 08/12/25 13:40 Nasal Secretion MRSA (PCR) - Final 08/12/25 08:32 Swab (Method) Streptococcus pyogenes (PCR) - Final 08/12/25 08:32 Mucosa - Nose SARS-CoV-2, Influenza & RSV (PCR) - Final Laboratory Results 08/13/25 13:08: Magnesium 1.0 L 08/13/25 14:00: POC Glucose 130 H 08/13/25 16:29: POC Glucose 110 H 08/13/25 21:53: POC Glucose 130 H 08/14/25 05:08: Sodium 140, Potassium 3.0 L, Chloride 96 L, Carbon Dioxide 30.8,Anion Gap 13, BUN 3 L, Creatinine 0.44 L, Estim Creat Clear Calc 135.02, Est GFR(MDRD) Non-Af 119, BUN/Creatinine Ratio 7.8 L, Glucose 131 H, Calcium 7.8, Magnesium 1.9, Total Bilirubin 1.04, Direct Bilirubin 0.66 H, AST 110 H, ALT 40 H, Alkaline Phosphatase 229 H, Total Protein 5.6 L, Albumin 3.1 L, Globulin 2.6 08/14/25 06:39: POC Glucose 138 H 08/14/25 11:21: POC Glucose 223 H Charges/Coding Visit Charges Inpatient E&M: 37935 Subs Hosp L2 08/14/25 1411 <Electronically signed by Zev Tucker MD> Cosigner Signature (if applicable): CC: ~ Signed [facility] Work Phone: [phone] Consult note Author Praful Olivo [facility] Note Date/Time August 14, 2025 10:24am [facility] Medical Records Department [address] [place] [address] Consultation - Infectious Dx 08/14/25 1020 MR#: [id number] Acct: [id number] Name: JOSEPH RINCON Rep #:[id number] : 1975 50 From: Praful katz MD PCP: Dr. Abisai Haley MD Status:ADM IN Location: [place] [address] Assessment & Plan Assessment/Plan (1) DKA (diabetic ketoacidoses): (2) Acute on chronic pancreatitis: (3) Bacteremia due to Gram-negative bacteria: PLAN: Suspect GI source. Cont unasyn. Feeling better, wbc normal. Will follow, thank you HPI Consult Data Date of Consult: 08/14/25 HPI Narrative Reason for Consultation: bacteremia HPI Narrative: JOSEPH RINCON, is a 50 F with etoh abuse and pancreatitis, presented 08/12 with one day of intractable n/v, mild chills, some low grade epigastric abd pain/cramping. No dysuria, no diarrhea, no dental issues, no cough or dyspnea. Came to ED, admitted with pancreatitis, now on unasyn and feeling better. Full ROS performed and neg except as noted above. [facility] Medical History Admitted to alcohol detoxification center [...] mg tablet 500 ea PO BID DIABETES 10/3108/11/25 History aspirin 81 mg chewable tablet 81 mg PO DAILY@0800 #30 tabs 11/19/22 08/11/25 Rx bupropion HCl 150 mg 24 hr tablet, 150 mg PO DAILY 08/11/25 History extended release montelukast 10 mg tablet 10 mg PO DAILY 04/09/2307/30 History (Singulair) pantoprazole 40 mg tablet,delayed 40 mg PO BID 08/11/25 History release cholecalciferol (vitamin D3) 50 50 mcg PO DAILY 08/11/25 History mcg (2,000 unit) capsule albuterol sulfate 90 mcg/actuation 2 puff inhalation Q 6H PRN 04/27/24 08/12/25 Rx aerosol inhaler shortness of breath or wheez ing #8.5 grams empagliflozin 25 mg tablet 25 mg PO DAILY 11/12/24 History (Jardiance) metoprolol succinate 25 mg 25 mg PO DAILY 11/12/24 History tablet,extended release 24 hr amlodipine 5 mg tablet 5 mg PO DAILY 04/04/2508/11 History buspirone 5 mg tablet 5 mg PO TID PRN anxiety 06/2208/11/25 History hydroxyzine HCl 10 mg tablet 10 mg PO TID PRN PRN anxi ety 04/04/25 Unknown History levocetirizine 5 mg tablet 5 mg PO DAILY 04/11/2507/30 History lisinopril 40 mg tablet 40 mg PO DAILY 04/11/2507/30 History budesonide-formoterol HFA 160 2 puff inhalation BID SO B 04/26/25 08/11/25 History mcg-4.5 mcg/actuation aerosol inhaler glimepiride 4 mg tablet 4 mg PO DAILY #30 tabs 05/0608/11/25 Rx atorvastatin 40 mg tablet 40 mg PO QHS 07/17/25 History fluoxetine 40 mg capsule 40 mg PO DAILY 07/17/2507/30 History lorazepam 1 mg tablet 1 mg PO BID 08/12/25 5 History naltrexone 50 mg tablet 50 mg PO DAILY 08/12/2507/30 History Allergy/AdvReac Type Severity Reaction Status Date / Time No Known Allergies Allergy Verified 08/12/25 08:21 Family History Grandfather CVA (cerebral vascular accident) [...] intake. substance use type: does not use Physical Exam Const alert, oriented x3 and no apparent distress General Appearance: cooperative HEENT normocephalic and head/scalp atraumatic Eyes PERRL and EOMs intact bilaterally Neck supple and No nodes Resp normal air movement and clear to auscultation bilaterally Cardio regular rate and regular rhythm GI soft to palpation and non-distended Palpation: tender Extremity General Extremity: Negative for edema Skin no rashes or lesions noted Neuro CN's II-XII intact bilaterally Medical Records Data Medical Nutrition Assessment Dietitian: Malnutrition Criteria Met Start: 08/13/25 09:43 Freq: Status: Active Protocol: Document 08/13/25 09:43 YASEMIN (Rec: 08/13/25 09:43 SLA [id number]) Nutrition Malnutrition Evidence of Yes Malnutrition Exists Clinical Problem Acute Disease or Injury Related Malnutrition Etiology Pt with gi dysfunction w/ n/v bellhop service captain and po intake inadequate to meet estimated nutritional needs Signs/Symptoms evidenced by n/v bellhop service captain x 24 hours and po intake meeting < 75% of est nutritional needs x 2 wks bellhop service captain, also w/ 18.3 % unplanned wt loss x 9 mo and 8.1% unplanned wt loss x < 1 month bellhop service captain - sig for malnutrition. Status Active Problem Recommendation Dietitian As medically able, rec URSZULA to liberal CHO Controlled Recommendations/ diet d/t signs and symptoms of malnutrition Changes As medically able, rec glucerna shake 4x/day w/ medpass for increased nutrition if consumed. Lab / Micro Data Attestation: I reviewed the patient's lab results. 08/13/25 04:30 08/14/25 05:08 Labs: Laboratory Results - last 24 hr 08/13/25 04:30: Total Bilirubin 0.72, Direct Bilirubin 0.43 H, AST 158 H, ALT 49H, Alkaline Phosphatase 102, Total Protein 5.6 L, Albumin 3.2 L, Globulin 2.4 08/13/25 10:50: POC Glucose 78 08/13/25 11:51: POC Glucose 82 08/13/25 13:08: Magnesium 1.0 L 08/13/25 14:00: POC Glucose 130 H 08/13/25 16:29: POC Glucose 110 H 08/13/25 21:53: POC Glucose 130 H 08/14/25 05:08: Sodium 140, Potassium 3.0 L, Chloride 96 L, Carbon Dioxide 30.8,Anion Gap 13, BUN 3 L, Creatinine 0.44 L, Estim Creat Clear Calc 135.02, Est GFR(MDRD) Non-Af 119, BUN/Creatinine Ratio 7.8 L, Glucose 131 H, Calcium 7.8, Magnesium 1.9, Total Bilirubin 1.04, Direct Bilirubin 0.66 H, AST 110 H, ALT 40 H, Alkaline Phosphatase 229 H, Total Protein 5.6 L, Albumin 3.1 L, Globulin 2.6 08/14/25 06:39: POC Glucose 138 H Micro: Microbiology 08/12/25 20:00 Urine, Clean Catch Urine Culture - Final Mixed Gram Pos & Gram Neg Org 08/12/25 20:00 Urine, Clean Catch Streptococcus pneumoniae Antigen (M - Final 08/12/25 13:10 Blood Culture (Wb) - Anticubital Right Blood Culture - Preliminary Gram negative ermias 08/14/25 1024 <Electronically signed by Praful Olivo MD> Cosigner Signature (if applicable): CC: Dr. Abisai Haley MD~ Signed [facility] Work Phone: 1(445) 228-409209-15-2025 Progress note Author [facility] Note Date/Time August 15, 2025 5:41pm [facility] Medical Records Department [address] [place] [address] Progress Note - Hospitalist 08/13/25 1528 MR#: [id number] Acct: [id number] Name: JOSEPH RINCON Salbador Rep #:[id number] : 1975 50 From: Zev Zhang PCP: Dr. Abisai Haley MD Status:ADM IN Location: [place] [address] Hospitalist Note Blood culture prelim positive GNR. Patient leukocytosis improved and no fever. No tachycardia. Continue IV Unasyn. 08/13/25 1528 <Electronically signed by Zev Tucker MD> Cosigner Signature (if applicable): CC: ~ Signed [facility] Work Phone: 1([phone]) 761-648909-15-2025 Progress note Author [facility] Note Date/Time August 13, 2025 8:33am [facility] Medical Records Department [address] [place] [address] Progress Note - Hospitalist 08/13/25 0823 MR#: [id number] Acct: [id number] Name: JOSEPH RINCON Salbador Rep #:[id number] : 1975 50 From: Zev Zhang PCP: Dr. Abisai Haley MD Status:ADM IN Location: ICU ICU02-1 Reason for Visit Chief Complaint: Persistent vomiting for 24 hours, inadequate oral intake for 2 weeks Objective Data Objective Data Vital Signs: Vital Signs Temp Pulse Resp BP Pulse Ox O2 Del Method O2 Flow Rate 97.5 F L 106 H 16 149/92 H 98 Nasal Cannula 2 08/13/25 07:00 08/13/25 08:00 08/13/25 08:00 08/13/25 08:00 08/13/25 08:00 08/13/25 08:00 08/13/25 08:00 Oxygen Flow Rate (L/min) 2 Oxygen Delivery Method Nasal Cannula Weight: 122 lb 9.232 oz Body Mass Index (BMI) 21.0 Intake & Output: Intake and Output for Last 24 Hours 08/11/25 08/12/25 08/13/25 23:59 23:59 23:59 Intake Total 5041.39 / 5041.39 3580.24 / 3580.24 Output Total 0 / 0 900 / 900 Balance 5041.39 / 5041.39 2680.24 / 2680.24 Lab / Micro Data 08/13/25 04:30 08/13/25 04:30 Labs: Laboratory Results - last 24 hr 08/12/25 08:32: WBC 11.8 H, RBC 4.05 L, Hgb 14.1, Hct 41.3, MCV 102.0 H, MCH 34.8 H, MCHC 34.1, RDW Std Deviation 50.9 H, RDW Coeff of Braxton 13.6, Plt Count 181, MPV 10.1, Neut % (Auto) Not Reportable, Absolute Neuts (auto) 10.3 H, Absolute Lymphs (auto) 1.18, Total Counted 100, Neutrophils % (Manual) 87 H, Lymphocytes % (Manual) 10 L, Monocytes % (Manual) 3, Platelet Estimate ADEQUATE, RBC Morphology NORM C+C, Sodium 139, Potassium 3.1 L, Chloride 73 L*, Carbon Dioxide 17.4 L, Anion Gap 48 H, BUN 20 H, Creatinine 1.82 H, Est GFR (MDRD) Non-Af 34 L, BUN/Creatinine Ratio 10.8, Glucose 300 H, Calcium 9.2, Total Bilirubin 1.22, AST 408 H, ALT 108 H, Alkaline Phosphatase 135 H, Total Protein 8.3, Albumin 4.6, Globulin 3.6, Albumin/Globulin Ratio 1.3, Lipase 1130 H, Serum , Qual NEGATIVE 08/12/25 10:47: Lactic Acid 1.7, b-Hydroxybutyric mmol/L 14.0 H 08/12/25 12:57: POC Glucose 270 H 08/12/25 13:49: POC Glucose 232 H 08/12/25 14:56: POC Glucose 208 H 08/12/25 15:34: POC Glucose 158 H 08/12/25 16:28: POC Glucose 174 H 08/12/25 17:31: POC Glucose 198 H 08/12/25 18:34: POC Glucose 234 H 08/12/25 19:38: POC Glucose 211 H 08/12/25 20:00: Urine Color Yellow, Urine Clarity Clear, Urine pH 6.5, Ur Specific [place] 1.010, Urine Protein 100 H, Urine Glucose (UA) 50 H, Urine Ketones 150 A*, Urine Occult Blood 25 H, Urine Nitrite Negative, Urine Bilirubin1 H, Urine Urobilinogen 4 H, Ur Leukocyte Esterase Negative, Urine RBC 5-10 SEEN, Urine WBC 0-5 SEEN, Ur Squamous Epith Cells 0-5 SEEN, Urine Bacteria 0 SEEN, Urine Mucus 0 SEEN 08/12/25 20:05: Sodium 140, Potassium 3.4, Chloride 98, Carbon Dioxide 26.8, Anion Gap 15, BUN 15, Creatinine 0.97, Estim Creat Clear Calc 57.55, Est GFR (MDRD) Non-Af 72, BUN/Creatinine Ratio 15.8, Glucose 179 H, Calcium 7.3 L, Phosphorus 0.8 L* 08/12/25 20:31: POC Glucose 173 H 08/12/25 21:35: POC Glucose 171 H 08/12/25 22:25: POC Glucose 186 H 08/12/25 23:48: POC Glucose 185 H 08/13/25 00:05: Sodium 139, Potassium 3.9, Chloride 100, Carbon Dioxide 27.4, Anion Gap 12, BUN 12, Creatinine 0.90, Estim Creat Clear Calc 62.03, Est GFR (MDRD) Non-Af 79, BUN/Creatinine Ratio 13.8, Glucose 162 H, Calcium 7.2 L, b-Hydroxybutyric mmol/L 0.5 H 08/13/25 00:32: POC Glucose 175 H 08/13/25 01:36: POC Glucose 156 H 08/13/25 02:41: POC Glucose 156 H 08/13/25 03:38: POC Glucose 177 H 08/13/25 04:30: WBC 6.4, RBC 3.06 L, Hgb 10.6 L, Hct 30.8 L, MCV 100.7 H, MCH 34.6 H, MCHC 34.4, RDW Std Deviation 49.9 H, RDW Coeff of Braxton 13.5, Plt Count 112 L, MPV 10.2, Immature Gran % (Auto) 0.500, Neut % (Auto) 80.1 H, Lymph % (Auto) 13.0 L, [place] % (Auto) 6.0, Eos % (Auto) 0.2, Baso % (Auto) 0.2, Absolute Neuts (auto) 5.1, Absolute Lymphs (auto) 0.83, Nucleated RBC % 0, Sodium 140, Potassium 4.0, Chloride 102, Carbon Dioxide 26.5, Anion Gap 12, BUN 8, Creatinine 0.64 L, Estim Creat Clear Calc 92.83, Est GFR (MDRD) Non-Af 109, BUN/Creatinine Ratio 13.1, Glucose 164 H, Hemoglobin A1c 5.2, Calcium 6.7 L, Phosphorus 3.8, Magnesium 0.9 L*, b- Hydroxybutyric mmol/L 0.2 08/13/25 04:37: POC Glucose 147 H 08/13/25 05:28: POC Glucose 161 H 08/13/25 06:35: POC Glucose 171 H 08/13/25 07:44: POC Glucose 165 H Micro: Microbiology 08/12/25 20:30 Mucosa - Nasopharyngeal Coronavirus COVID-19 PCR - Final 08/12/25 20:00 Urine, Clean Catch Streptococcus pneumoniae Antigen (M - Final 08/12/25 13:40 Nasal Secretion MRSA (PCR) - Final 08/12/25 08:32 Swab (Method) Streptococcus pyogenes (PCR) - Final 08/12/25 08:32 Mucosa - Nose SARS-CoV-2, Influenza & RSV (PCR) - Final ABG Data ABG results: ABG 08/12/25 08/12/25 10:58 12:45 Specimen Type ART GELACIO Sample Site Not entered Not entered pH 7.56 H Bicarbonate Actual 22.2 Total CO2 23 Base Excess 0 O2 Saturation 95 ABG pCO2 24.6 L ABG pO2 63 L VBG pH 7.49 H VBG pO2 52 H VBG HCO3 25 VBG Total CO2 26 VBG O2 Sat (Calc) 90 H VBG Base Excess 2 POC Mix VBG pCO2 Pt Tmp 32.2 L O2 Delivery Device Not entered Not entered Vent Mode Not entered Radiography Diagnostic Testing: Radiology Impression Abdomen/Pelvis CT 08/12/25 10:43 IMPRESSION: Fatty liver. Pancreatitis without phlegmon or pseudocyst. Reading Location: [facility] Physical Exam Narrative Seen and examined. Patient is still nauseated, gagging on water, with sore throat. No fever. Mildsinus tachycardia. Anion gap closed x 2 but she is not able to have oral intake. Abdominal pain and epigastric region/RUQ Physical exam General: Alert, Oriented x3, Cooperative HEENT: Mild tenderness over throat region. Atraumatic, PERRLA, EOMI, Normocephalic. Oral: Oral mucosa very dry. Tonsils enlarged. No oral ulcer. Neck: Supple, No JVD, Negative Carotid Bruits Chest wall/Lungs: Air entry diminished in bilateral lung bases. No crepitation/rhonchi Cardiovascular: Regular rate and rhythm, Normal S1,S2, No M/G/R Abdomen: Bowel Sounds Present, Soft, tenderness over right upper quadrant/epigastric region : No dysuria. No renal angle tenderness. No suprapubic tenderness. Extremities: No edema, Capillary Refill Less than 3 Seconds Skin: No rashes, No breakdown Musculoskeletal: No Tenderness to Palpation of Joints or Extremities. ROM intact Neurological: Cranial nerves II-XII grossly intact, DTR 2+/4. No acute focal neurological deficit. Psych/Mental Status: Flat affect Assessment & Plan Assessment/Plan (1) DKA (diabetic ketoacidoses): PLAN: Plan This is 50-year-old female is being admitted for persistent vomiting for more than 24 hours along with decreased oral intake, abdominal pain. 1. DKA with history of type 2 diabetes mellitus with severe electrolyte abnormality: Patient is being admitted in ICU. Glucoses around 300 not very high because patient is on Jardiance, glimepiride and metformin. Needs to be aggressive rehydration, 2 L normal saline, 1 L/h and then D5 half NS plus KCl at250 mL for another 2 L. Reevaluate fluid status afterwards with intake and output and IV fluid according. Insulin drip after 2 hours of IV fluid rehydration. Follow DKA protocol 08/13: Anion gap closed x 2. Sodium potassium and chloride are in normal range. Hypomagnesemia and hypophosphatemia. Magnesium and phosphorus IV replacement. Patient is still very symptomatic with abdominal pain, nausea and sore throat therefore continue IV fluid D5 half NS plus KCl at 150 mL/h and slow IV insulin drip. Speech therapy evaluation. 2. Complex acid-base disorder, high anion gap metabolic acidosis and severe metabolic alkalosis with hypokalemia,: Patient has high anion gap metabolic acidosis, metabolic alkalosis from persistent vomiting, hyperchloremic HCl rich fluid and hypokalemia: BMP shows chloride very low 73 probably due to persistentHCl rich vomiting with reflex physiologic bicarb conservation, 17.4, anion gap 48. IV fluid normal saline and IV KCl ordered. Insulin drip. Sodium is normal. 08/14: Metabolic alkalosis. High anion gap metabolic acidosis. Beta- hydroxybutyrate normal. Anion gap closed x 2. Repeat bicarb is 26.5. [id number]. 3. Acute on chronic recurrent alcoholic pancreatitis: Patient has right upper quadrant/epigastric tenderness and elevated lipase therefore meets criteria for acute pancreatitis. Last admitted in June 2025 for similar acute on chronic pancreatitis. IV fluid normal saline. Continue NPO. 08/13: CT scan shows moderate to severe fatty infiltration of the liver. No focal mass. Pancreas mild inflammation adjacent to the tail of pancreas. No pancreatic pseudocyst/phlegmon or evidence of necrosis. Biliary system negative. Status postcholecystectomy. 4. LUI due to severe dehydration and DKA, prerenal in etiology: BUN/creatinine ratio 10.8. BUN 20, creatinine 1.82. 08/13: BUN/creatinine 8/0.64. LUI resolved. 5. Sore throat possible acute tonsillitis: Triple PCR for SARS-CoV-2, flu and RSV are negative. Strep throat negative. Started on IV Unasyn. Cepacol conservative management 6. Acute on chronic alcoholic hepatitis: AST 408, ALT 208, total bili 1.22. Icterus positive. Monitor liver chemistry 08/13: Repeat liver chemistry ordered 7. Chronic alcohol use disorder: She stopped drinking alcohol about 2 weeks ago. Currently not having any acute alcohol withdrawal symptoms like tremors, disorientation delirium. CIWA monitor. 8. COPD: Currently not in exacerbation. Currently smokes about half pack per day. Advised quitting smoking. 9. Dyslipidemia: On statin. Hold it for now 10. Depression with anxiety: Hold oral medications. Patient on citalopram bupropion and buspirone 11. Severe malnutrition due to chronic alcohol use and inadequate oral intake. It is evidenced by: 10% unintentional weight loss. Lift Supervisor consult DVT prophylaxis: Patient has intermittent thrombocytopenia during previous hospitalization probably due to alcohol. Current 100 81K. Patient also has history of anemia and currently H&H 14.1/41.3 probably due to hemoconcentration. Enoxaparin 40 mg subcu daily Living will/advanced directive/end of life care: Patient does not have living will or advanced directive. After discussion of benefits/risks procedures involved with full code, DNR CC arrest and DNR CC, the patient opted for full code. Patient does want artificial life support including intubation, tube feed, ventilator and/chest compression, central venous catheter, vasopressor and DC shock if needed Total time spent in [id number] encounter in discussion of advanced directive 17 minutes. Microbiology Past 72 Hours 08/12/25 08:32 Swab (Method) Streptococcus pyogenes (PCR) - Final 08/12/25 08:32 Mucosa - Nose SARS-CoV-2, Influenza & RSV (PCR) - Final Laboratory Results 08/12/25 08:32: WBC 11.8 H, RBC 4.05 L, Hgb 14.1, Hct 41.3, MCV 102.0 H, MCH 34.8 H, MCHC 34.1, RDW Std Deviation 50.9 H, RDW Coeff of Braxton 13.6, Plt Count 181, MPV 10.1, Neut % (Auto) Not Reportable, Absolute Neuts (auto) 10.3 H, Absolute Lymphs (auto) 1.18, Total Counted 100, Neutrophils % (Manual) 87 H, Lymphocytes % (Manual) 10 L, Monocytes % (Manual) 3, Platelet Estimate ADEQUATE, RBC Morphology NORM C+C, Sodium 139, Potassium 3.1 L, Chloride 73 L*, Carbon Dioxide 17.4 L, Anion Gap 48 H, BUN 20 H, Creatinine 1.82 H, Est GFR (MDRD) Non-Af 34 L, BUN/Creatinine Ratio 10.8, Glucose 300 H, Calcium 9.2, Total Bilirubin 1.22, AST 408 H, ALT 108 H, Alkaline Phosphatase 135 H, Total Protein 8.3, Albumin 4.6, Globulin 3.6, Albumin/Globulin Ratio 1.3, Lipase 1130 H, Serum , Qual NEGATIVE 08/12/25 10:47: Lactic Acid 1.7, b-Hydroxybutyric mmol/L 14.0 H 08/12/25 10:58: Specimen Type ART, Sample Site Not entered, pH 7.56 H, Bicarbonate Actual 22.2, Total CO2 23, Base Excess 0, O2 Saturation 95, ABG sNT812.6 L, ABG pO2 63 L, O2 Delivery Device Not entered, Vent Mode Not entered 08/12/25 12:45: Specimen Type GELACIO, Sample Site Not entered, VBG pH 7.49 H, VBG pO2 52 H, VBG HCO3 25, VBG Total CO2 26, VBG O2 Sat (Calc) 90 H, VBG Base Excess2, POC Mix VBG pCO2 Pt Tmp 32.2 L, O2 Delivery Device Not entered 08/12/25 12:57: POC Glucose 270 H Charges/Coding Visit Charges Inpatient E&M: 60390 Subs Hosp L3 08/13/25 0833 <Electronically signed by Zev Tucker MD> Cosigner Signature (if applicable): CC: ~ Signed [facility] Work Phone: [phone] History and physical note Author Zev Tucker [facility] Note Date/Time August 12, 2025 1:38pm [facility] Medical Records Department [address] [place] [id number] H&P Exam - Hospitalist 08/12/25 1302 MR#: [id number] Acct: [id number] Name: JOSEPH RINCON Rep #:[id number] : 1975 50 From: Zev Zhang PCP: Dr. Abisai Haley MD Status:ADM IN Location: ICU ICU02-1 HPI - General General Date of Admission: 08/12/25 Date of Service: 08/12/25 Chief Complaint: Persistent vomiting for 24 hours, inadequate oral intake for 2 weeks HPI Narrative JOSEPH RINCON, is a 50 F came to ED with persistent vomiting every half an hour to an hour for last 24 hours. She is also not able to eat and mainly trying to drink water for last 2 weeks. She has throat pain and have some difficulty in swallowing. She also felt chills hot and cold but not take her temperature. History of diabetes mellitus type 2 on metformin, glimepiride and Jardiance. Patient is very dehydrated. Patient also complained of mild abdominal pain mainly epigastric/right upper quadrant pain. Patient also drinks alcohol and last drink was about 2 weeks ago. She drinks 1/5 bottle of vodka every day. She was last admitted in June for acute on chronic pancreatitis and alcohol withdrawal symptoms. In ED, patient is tachycardic 130s per minute. BP 129/85. Pulse ox 92% on roomair. ABG done in ER is alkaline, 7.56/24.6/63 on room air. Labs shows hypokalemia with K3.1, chloride 73 which is explanation for severe dehydration from vomitingcausing loss of HCl which is bicarbonate poor, chloride rich gastric fluid leading to metabolic alkalosis. Lipase elevated. [facility] Medical History Admitted to alcohol detoxification center [...] mg tablet 500 ea PO BID DIABETES 10/3108/11/25 History aspirin 81 mg chewable tablet 81 mg PO DAILY@0800 #30 tabs 11/19/22 08/11/25 Rx bupropion HCl 150 mg 24 hr tablet, 150 mg PO DAILY 08/11/25 History extended release montelukast 10 mg tablet 10 mg PO DAILY 04/09/2307/30 History (Singulair) pantoprazole 40 mg tablet,delayed 40 mg PO BID 3 08/11/25 History release cholecalciferol (vitamin D3) 50 50 mcg PO DAILY 08/11/25 History mcg (2,000 unit) capsule albuterol sulfate 90 mcg/actuation 2 puff inhalation Q 6H PRN 04/27/24 08/12/25 Rx aerosol inhaler shortness of breath or wheez ing #8.5 grams empagliflozin 25 mg tablet 25 mg PO DAILY 11/12/24 History (Jardiance) metoprolol succinate 25 mg 25 mg PO DAILY 11/12/24 History tablet,extended release 24 hr amlodipine 5 mg tablet 5 mg PO DAILY 04/04/2508/11 History buspirone 5 mg tablet 5 mg PO TID PRN anxiety 06/2208/11/25 History hydroxyzine HCl 10 mg tablet 10 mg PO TID PRN PRN anxi ety 04/04/25 Unknown History levocetirizine 5 mg tablet 5 mg PO DAILY 04/11/2507/30 History lisinopril 40 mg tablet 40 mg PO DAILY 04/11/2507/30 History budesonide-formoterol HFA 160 2 puff inhalation BID SO B 04/26/25 08/11/25 History mcg-4.5 mcg/actuation aerosol inhaler glimepiride 4 mg tablet 4 mg PO DAILY #30 tabs 05/0608/11/25 Rx atorvastatin 40 mg tablet 40 mg PO QHS 07/17/25 History fluoxetine 40 mg capsule 40 mg PO DAILY 07/17/2507/30 History lorazepam 1 mg tablet 1 mg PO BID 08/12/25 5 History naltrexone 50 mg tablet 50 mg PO DAILY 08/12/2507/30 History Allergy/AdvReac Type Severity Reaction Status Date / Time No Known Allergies Allergy Verified 08/12/25 08:21 Family History Grandfather CVA (cerebral vascular accident) [...] type: does not use ROS ROS Narrative Constitutional: Reports fatigue and weakness. Subjective fever/chills HEENT: Sore throat as mentioned in HPI reports systems reviewed and no addt'l complaints, except as documented Respiratory/Chest: No acute shortness of breath or respiratory distress or wheezing. CVS: No chest pain. Gastrointestinal: Described in HPI Genitourinary: Denies burning urination or new urinary tract symptoms Musculoskeletal: Denies acute joint pain or limited range of motion. No acute injury Neurologic: Denies seizure-like symptoms. skin: No ulcer. No rash Endocrinology: Reports systems reviewed and no addt'l complaints, except as documented Hematologic/Lymphatic: Reports systems reviewed and no addt'l complaints, exceptas documented Rest 14 ROS are negative except as mentioned in HPI Vital Signs Vital Signs Vital Signs: 08/12/25 08:19 08/12/25 10:19 08/12/25 12:00 Temperature 97.9 F Temperature Source Oral Pulse Rate 130 H 64 120 H Respiratory Rate 18 18 18 Blood Pressure 129/85 H 127/78 H 156/70 H Blood Pressure Mean 99 94 98 Pulse Ox 92 98 92 Oxygen Delivery Method Room Air Room Air Room Air Oxygen Flow Rate (L/min) 08/12/25 12:42 08/12/25 12:50 08/12/25 12:51 Temperature 98.3 F Temperature Source Pulse Rate 118 H 115 H 115 H Respiratory Rate 14 16 17 Blood Pressure 161/85 H Blood Pressure Mean 110 Pulse Ox 92 90 95 Oxygen Delivery Method Room Air Nasal Cannula Oxygen Flow Rate (L/min) 2 Weight Weight: 118 lb 2.684 oz Body Mass Index (BMI) 20.2 Physical Exam Narrative General: Alert, Oriented x3, Cooperative HEENT: Mild tenderness over throat region. Atraumatic, PERRLA, EOMI, Normocephalic. Oral: Oral mucosa very dry. Tonsils enlarged, looks inflamed. No oral ulcer. Neck: Supple, No JVD, Negative Carotid Bruits Chest wall/Lungs: Air entry diminished in bilateral lung bases. No crepitation/rhonchi Cardiovascular: Regular rate and rhythm, Normal S1,S2, No M/G/R Abdomen: Bowel Sounds Present, Soft, tenderness over right upper quadrant/epigastric region : No dysuria. No renal angle tenderness. No suprapubic tenderness. Extremities: No edema, Capillary Refill Less than 3 Seconds Skin: No rashes, No breakdown Musculoskeletal: No Tenderness to Palpation of Joints or Extremities. ROM intact Neurological: Cranial nerves II-XII grossly intact, DTR 2+/4. No acute focal neurological deficit. Psych/Mental Status: Flat affect Results Lab / Micro Data 08/12/25 08:32 08/12/25 08:32 Labs: Laboratory Results - last 24 hr 08/12/25 08:32: WBC 11.8 H, RBC 4.05 L, Hgb 14.1, Hct 41.3, MCV 102.0 H, MCH 34.8 H, MCHC 34.1, RDW Std Deviation 50.9 H, RDW Coeff of Braxton 13.6, Plt Count 181, MPV 10.1, Neut % (Auto) Not Reportable, Absolute Neuts (auto) 10.3 H, Absolute Lymphs (auto) 1.18, Total Counted 100, Neutrophils % (Manual) 87 H, Lymphocytes % (Manual) 10 L, Monocytes % (Manual) 3, Platelet Estimate ADEQUATE, RBC Morphology NORM C+C, Sodium 139, Potassium 3.1 L, Chloride 73 L*, Carbon Dioxide 17.4 L, Anion Gap 48 H, BUN 20 H, Creatinine 1.82 H, Est GFR (MDRD) Non-Af 34 L, BUN/Creatinine Ratio 10.8, Glucose 300 H, Calcium 9.2, Total Bilirubin 1.22, AST 408 H, ALT 108 H, Alkaline Phosphatase 135 H, Total Protein 8.3, Albumin 4.6, Globulin 3.6, Albumin/Globulin Ratio 1.3, Lipase 1130 H, Serum , Qual NEGATIVE 08/12/25 10:47: Lactic Acid 1.7, b-Hydroxybutyric mmol/L 14.0 H Micro: Microbiology 08/12/25 08:32 Swab (Method) Streptococcus pyogenes (PCR) - Final 08/12/25 08:32 Mucosa - Nose SARS-CoV-2, Influenza & RSV (PCR) - Final ABG Data ABG results: ABG 08/12/25 08/12/25 10:58 12:45 Specimen Type ART GELACIO Sample Site Not entered Not entered pH 7.56 H Bicarbonate Actual 22.2 Total CO2 23 Base Excess 0 O2 Saturation 95 ABG pCO2 24.6 L ABG pO2 63 L VBG pH 7.49 H VBG pO2 52 H VBG HCO3 25 VBG Total CO2 26 VBG O2 Sat (Calc) 90 H VBG Base Excess 2 POC Mix VBG pCO2 Pt Tmp 32.2 L O2 Delivery Device Not entered Not entered Vent Mode Not entered Imaging Radiology Impression Abdomen/Pelvis CT 08/12/25 10:43 IMPRESSION: Fatty liver. Pancreatitis without phlegmon or pseudocyst. Reading Location: [facility] Assessment & Plan Assessment/Plan (1) DKA (diabetic ketoacidoses): PLAN: Plan This is 50-year-old female is being admitted for persistent vomiting for more than 24 hours along with decreased oral intake, abdominal pain. 1. DKA with history of type 2 diabetes mellitus: Patient is being admitted in ICU. Glucoses around 300 not very high because patient is on Jardiance, glimepiride and metformin. Needs to be aggressive rehydration, 2 L normal saline, 1 L/h and then D5 half NS plus KCl at 250 mL for another 2 L. Reevaluate fluid status afterwards with intake and output and IV fluid according. Insulin drip after 2 hours of IV fluid rehydration. Follow DKA protocol 2. Complex acid-base disorder, high anion gap metabolic acidosis and metabolic alkalosis with hypokalemia,: Patient has high anion gap metabolic acidosis, metabolic alkalosis from persistent vomiting, hyperchloremic HCl rich fluid and hypokalemia: BMP shows chloride very low 73 probably due to persistent HCl rich vomiting with reflex physiologic bicarb conservation, 17.4, anion gap 48. IV fluid normal saline and IV KCl ordered. Insulin drip. Sodium is normal. Serummagnesium and phosphorus ordered. 3. Acute on chronic recurrent alcoholic pancreatitis: Patient has right upper quadrant/epigastric tenderness and elevated lipase therefore meets criteria for acute pancreatitis. Last admitted in June 2025 for similar acute on chronic pancreatitis. IV fluid normal saline. Continue NPO. 4. LUI due to severe dehydration and DKA: BUN/creatinine ratio 10.8. BUN 20, creatinine 1.82. 5. Sore throat possible acute tonsillitis: Triple PCR for SARS-CoV-2, flu and RSV are negative. Strep throat negative. Started on IV Unasyn. Cepacol conservative management 6. Acute on chronic alcoholic hepatitis: AST 408, ALT 208, total bili 1.22. Icterus positive. Monitor liver chemistry 7. Chronic alcohol use disorder: She stopped drinking alcohol about 2 weeks ago. Currently not having any acute alcohol withdrawal symptoms like tremors, disorientation delirium. CIWA monitor. 8. COPD: Currently not in exacerbation. Currently smokes about half pack per day. Advised quitting smoking. 9. Dyslipidemia: On statin. Hold it for now 10. Depression with anxiety: Hold oral medications. Patient on citalopram bupropion and buspirone 11. Severe malnutrition due to chronic alcohol use and inadequate oral intake. It is evidenced by: 10% unintentional weight loss. Lift Supervisor consult DVT prophylaxis: Patient has intermittent thrombocytopenia during previous hospitalization probably due to alcohol. Current 100 81K. Patient also has history of anemia and currently H&H 14.1/41.3 probably due to hemoconcentration. Enoxaparin 40 m subcu daily Living will/advanced directive/end of life care: Patient does not have living will or advanced directive. After discussion of benefits/risks procedures involved with full code, DNR CC arrest and DNR CC, the patient opted for full code. Patient does want artificial life support including intubation, tube feed, ventilator and/chest compression, central venous catheter, vasopressor and DC shock if needed Total time spent in [id number]-[id number] encounter in discussion of advanced directive 17 minutes. Microbiology Past 72 Hours 08/12/25 08:32 Swab (Method) Streptococcus pyogenes (PCR) - Final 08/12/25 08:32 Mucosa - Nose SARS-CoV-2, Influenza & RSV (PCR) - Final Laboratory Results 08/12/25 08:32: WBC 11.8 H, RBC 4.05 L, Hgb 14.1, Hct 41.3, MCV 102.0 H, MCH 34.8 H, MCHC 34.1, RDW Std Deviation 50.9 H, RDW Coeff of Braxton 13.6, Plt Count 181, MPV 10.1, Neut % (Auto) Not Reportable, Absolute Neuts (auto) 10.3 H, Absolute Lymphs (auto) 1.18, Total Counted 100, Neutrophils % (Manual) 87 H, Lymphocytes % (Manual) 10 L, Monocytes % (Manual) 3, Platelet Estimate ADEQUATE, RBC Morphology NORM C+C, Sodium 139, Potassium 3.1 L, Chloride 73 L*, Carbon Dioxide 17.4 L, Anion Gap 48 H, BUN 20 H, Creatinine 1.82 H, Est GFR (MDRD) Non-Af 34 L, BUN/Creatinine Ratio 10.8, Glucose 300 H, Calcium 9.2, Total Bilirubin 1.22, AST 408 H, ALT 108 H, Alkaline Phosphatase 135 H, Total Protein 8.3, Albumin 4.6, Globulin 3.6, Albumin/Globulin Ratio 1.3, Lipase 1130 H, Serum , Qual NEGATIVE 08/12/25 10:47: Lactic Acid 1.7, b-Hydroxybutyric mmol/L 14.0 H 08/12/25 10:58: Specimen Type ART, Sample Site Not entered, pH 7.56 H, Bicarbonate Actual 22.2, Total CO2 23, Base Excess 0, O2 Saturation 95, ABG pTR951.6 L, ABG pO2 63 L, O2 Delivery Device Not entered, Vent Mode Not entered 08/12/25 12:45: Specimen Type GELACIO, Sample Site Not entered, VBG pH 7.49 H, VBG pO2 52 H, VBG HCO3 25, VBG Total CO2 26, VBG O2 Sat (Calc) 90 H, VBG Base Excess2, POC Mix VBG pCO2 Pt Tmp 32.2 L, O2 Delivery Device Not entered 08/12/25 12:57: POC Glucose 270 H Charges/Coding Visit Charges Inpatient E&M: 99037 Init Hosp L3 Procedures Hospitalists Procedures: 88447 Advncd Care Plan 30 Min 08/12/25 1338 <Electronically signed by Zev Tucker MD> Cosigner Signature (if applicable): CC: Dr. Abisai Haley MD; Dr. Zev Tucker MD~ Signed [facility] Work Phone: [phone] Discharge summary Author Wellington Rader [facility] Note Date/Time August 12, 2025 1:00pm [facility] Medical Records Department [address] [place] [address] Emergency Department Summary 08/12/25 MR#: [id number] Acct: [id number] Name: JOSEPH RINCON Rep #:[id number] : 1975 50 From: Wellington Rader MD PCP: Dr. Abisai Haley MD Status:REG ER Location: ED HPI HPI - GI History of Present Illness Chief Complaint: Alt LOC Informant: patient Narrative Narrative: 50-year-old female presenting with continuous vomiting over the past 24 hours. She states this started with a sore throat, that became worse and she has been having some gagging, as well as vomiting and lots of nausea that she thinks is causing the majority of the vomiting, not necessarily the gagging although that is contributing. She denies any significant cough but she has felt a little short of breath when ambulating. No abdominal pain except for some soreness in her upper abdomen that she feels like is muscular from all the vomiting which came later. No hematemesis. No diarrhea. Never bright red blood per rectum ormelena. No fevers or chills. No known sick contacts. [facility] Medical History Admitted to alcohol detoxification [...] mg tablet 500 ea PO BID DIABETES 10/3108/11/25 History aspirin 81 mg chewable tablet 81 mg PO DAILY@0800 #30 tabs 11/19/22 08/11/25 Rx bupropion HCl 150 mg 24 hr tablet, 150 mg PO DAILY 08/11/25 History extended release montelukast 10 mg tablet 10 mg PO DAILY 04/09/2307/30 History (Singulair) pantoprazole 40 mg tablet,delayed 40 mg PO BID 08/11/25 History release cholecalciferol (vitamin D3) 50 50 mcg PO DAILY 08/11/25 History mcg (2,000 unit) capsule albuterol sulfate 90 mcg/actuation 2 puff inhalation Q 6H PRN 04/27/24 08/12/25 Rx aerosol inhaler shortness of breath or wheez ing #8.5 grams empagliflozin 25 mg tablet 25 mg PO DAILY 11/12/24 History (Jardiance) metoprolol succinate 25 mg 25 mg PO DAILY 11/12/24 History tablet,extended release 24 hr amlodipine 5 mg tablet 5 mg PO DAILY 04/04/2508/11 History buspirone 5 mg tablet 5 mg PO TID PRN anxiety 06/2208/11/25 History hydroxyzine HCl 10 mg tablet 10 mg PO TID PRN PRN anxi ety 04/04/25 Unknown History levocetirizine 5 mg tablet 5 mg PO DAILY 04/11/2507/30 History lisinopril 40 mg tablet 40 mg PO DAILY 04/11/2507/30 History budesonide-formoterol HFA 160 2 puff inhalation BID SO B 04/26/25 08/11/25 History mcg-4.5 mcg/actuation aerosol inhaler glimepiride 4 mg tablet 4 mg PO DAILY #30 tabs 05/0608/11/25 Rx atorvastatin 40 mg tablet 40 mg PO QHS 07/17/25 History fluoxetine 40 mg capsule 40 mg PO DAILY 07/17/2507/30 History lorazepam 1 mg tablet 1 mg PO BID 08/12/25 5 History naltrexone 50 mg tablet 50 mg PO DAILY 08/12/2507/30 History Allergy/AdvReac Type Severity Reaction Status Date / Time No Known Allergies Allergy Verified 08/12/25 08:21 Family History Grandfather CVA (cerebral vascular accident) [...] ROS ROS ED Constitutional Constitutional ED: Reports anorexia, fatigue, malaise and weight loss; Denies chills or fever(s) Eyes Eyes: Denies change in vision or diplopia ENT ENT ED: Reports sore throat; Denies ear pain or rhinorrhea Cardiovascular Cardiovascular: Denies chest pain or palpitations Respiratory/Chest Respiratory/Chest: Reports dyspnea on exertion; Denies cough Gastrointestinal Gastrointestinal: Reports abdominal pain, nausea and vomiting; Denies diarrhea, hematemesis, hematochezia or melena Genitourinary Genitourinary ED: Denies dysuria or hematuria Musculoskeletal Musculoskeletal: Denies back pain or neck pain Integumentary Denies abscess or rash Neurologic Neurologic: Denies headache(s), paresthesias or weakness Psychiatric Psychiatric: Denies suicidal thoughts EXAM Physical Exam Const Vital Signs: 08/12/25 08:19 08/12/25 10:19 08/12/25 12:00 Temperature 97.9 F Temperature Source Oral Pulse Rate 130 H 64 120 H Respiratory Rate 18 18 18 Blood Pressure 129/85 H 127/78 H 156/70 H Blood Pressure Mean 99 94 98 Pulse Ox 92 98 92 Oxygen Delivery Method Room Air Room Air Room Air Oxygen Flow Rate (L/min) 08/12/25 12:42 08/12/25 12:50 08/12/25 12:51 Temperature 98.3 F Temperature Source Pulse Rate 118 H 115 H 115 H Respiratory Rate 14 16 17 Blood Pressure 161/85 H Blood Pressure Mean 110 Pulse Ox 92 90 95 Oxygen Delivery Method Room Air Nasal Cannula Oxygen Flow Rate (L/min) 2 Positive well nourished and well developed General Appearance ED: well developed and NAD HEENT Reports moist mucous membranes HEENT Narrative: Diffuse posterior oropharyngeal and soft palatal erythema along with what appears to be mild uvulitis. There is no asymmetry or tonsillar exudates/edema. No trismus. Tongue is normal. Normal voice, no distress, no stridor. normocephalic and atraumatic Eyes PERRL and EOMs intact bilaterally Neck full ROM, no lymphadenopathy and supple Resp normal respiratory effort and clear to auscultation bilaterally Cardio regular rate, regular rhythm and no murmurs GI non-distended GI Narrative: Tender in epigastrium, patient thinks it is a muscle soreness. No guarding or rebound or other areas of tenderness. Auscultation: normoactive bowel sounds Palpation: soft Back/Spine no CVA tenderness General Back: other FROM Extremity normal to inspection General Extremety ED: Negative for edema, pulses abnormal or tenderness General Extremity: Negative for edema or pulses abnormal Neuro oriented x3, CN's II-XII intact bilaterally and no sensory deficits noted Sensorium / Orientation: awake and alert Motor Exam: strength 5/5 throughout Skin no rashes or lesions noted and no wounds MDM MDM MDM Narrative Medical decision making narrative: Labs concerning for LUI and acute pancreatitis. Her liver enzymes are elevated as well, but her total bilirubin is normal suggesting this is not biliary obstruction that is causing this. I reviewed some old ER/hospital records, 3 weeks ago she was admitted for alcoholic pancreatitis. Asked her about her alcohol use. She states since then, she has gotten into [facility] for outpatient rehab, and she has stopped drinking, her last drink was the week before last. Here after Zofran and Reglan she still is having some occasional vomiting feeling very nauseated. Her posterior pharynx is very erythematous, and now my suspicion is that instead of the primary cause of her vomiting, it is probably secondary to much of it. She was given IV fluids, her chloride is down at 73, and her bicarb low at 17, contributing to her anion gap of 48. Therefore she may have alcoholic ketoacidosis as well. I did an ABG first, and interestingly it is not even showing an acidosis, rather it is showing what appears to be an acute respiratory alkalosis. Her lactic and back normal, and her ketones returned extremely high, suggesting maybe she has a mixed respiratory alkalosis and metabolic acidosis and could still very well be an AKA. Her history is consistent with this, when I talked her further she states that when she was drinking alcohol, she was drinking very heavily, and not eating much and she hasbarely eaten anything in the last 1-2 weeks and she stopped drinking alcohol, she is basically just drinking fluids. 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 However, when I spoke with the patient about all of this, she states this does not feel like the pancreatitis that she has had in the past, so I thought better to obtain the CT to see if it is consistentwith acute pancreatitis or not. This was done, I reviewed the images and the report which I agree with and it is consistent with acute pancreatitis and thereis no evidence of a pseudocyst or other complication at this time or other acuteabnormality. Alcoholic ketoacidosis would explain her vomiting and why she feels different than when she had acute pancreatitis that was the main cause of her vomiting before. She is a type II diabetic and although type II DKA is in the differential, I think that is less likely here. Her blood sugar was 300 we willcontinue to monitor that and admit her to the hospital discussed with hospitalist. Dr. Tucker evaluated the patient in ED, and thinks that this is more likely to be DKA rather than AKA, and request that we discontinue the D5 half-normal saline and instead give 2 L of normal saline, and he will admit to ICU and begin insulin drip after the IV fluids. History & Record Review Additional record(s) reviewed:: Prior inpatient record Lab Data Attestation: I reviewed the patient's lab results. Labs: Laboratory Results - last 24 hr 08/12/25 08/12/25 08:32 10:47 WBC 11.8 H RBC 4.05 L Hgb 14.1 Hct 41.3 MCV 102.0 H MCH 34.8 H MCHC 34.1 RDW Std Deviation 50.9 H RDW Coeff of Braxton 13.6 Plt Count 181 MPV 10.1 Neut % (Auto) Not Reportable Absolute Neuts (auto) 10.3 H Absolute Lymphs (auto) 1.18 Total Counted 100 Neutrophils % (Manual) 87 H Lymphocytes % (Manual) 10 L Monocytes % (Manual) 3 Platelet Estimate ADEQUATE RBC Morphology NORM C+C Sodium 139 Potassium 3.1 L Chloride 73 L* Carbon Dioxide 17.4 L Anion Gap 48 H BUN 20 H Creatinine 1.82 H Est GFR (MDRD) Non-Af 34 L BUN/Creatinine Ratio 10.8 Glucose 300 H Lactic Acid 1.7 Calcium 9.2 Total Bilirubin 1.22 AST 408 H ALT 108 H Alkaline Phosphatase 135 H Total Protein 8.3 Albumin 4.6 Globulin 3.6 Albumin/Globulin Ratio 1.3 Lipase 1130 H b-Hydroxybutyric mmol/L 14.0 H Serum , Qual NEGATIVE ABG Data ABG results: ABG 08/12/25 08/12/25 10:58 12:45 Specimen Type ART GELACIO Sample Site Not entered Not entered pH 7.56 H Bicarbonate Actual 22.2 Total CO2 23 Base Excess 0 O2 Saturation 95 ABG pCO2 24.6 L ABG pO2 63 L VBG pH 7.49 H VBG pO2 52 H VBG HCO3 25 VBG Total CO2 26 VBG O2 Sat (Calc) 90 H VBG Base Excess 2 POC Mix VBG pCO2 Pt Tmp 32.2 L O2 Delivery Device Not entered Not entered Vent Mode Not entered Radiography Diagnostic Testing: Clinical Impression(s) from Imaging Studies Abdomen/Pelvis CT 08/12/25 10:43 IMPRESSION: Fatty liver. Pancreatitis without phlegmon or pseudocyst. Reading Location: [id number] Management Discussion w/another healthcare provider: Hospitalist Critical Care Time Critical Care Time: Yes Critical care time (excluding procedures): 30-74 minutes (41 min), Including time spent:, Discussing w/Patient &/or Family/Community Development Director, Discussing w/Consultants, Arranging Admission or Transfer and Performing Direct Patient Care at Bedside Discharge Plan Dx/Rx/DC Orders Clinical Impression: Acute on chronic pancreatitis, LUI (acute kidney injury), Hyperglycemia due to type 2 diabetes mellitus, Ketosis Disposition Disposition: Acute Care Hospital [facility] What to do if you have Problems For any increased pain, shortness of breath, bleeding, nausea or vomiting, chestpain, or any unexpected problems, contact your Primary Care Provider. Call [facility] ([phone]) or report to the closest Emergency Room. Call 911 if necessary. 08/12/25 1300 <Electronically signed by Wellington Rader MD> Cosigner Signature (if applicable): CC: Dr. Abisai Haley MD ~ Signed [facility] Work Phone: 1(768) 412-282509-14-2025 Radiology Diagnostic study [facility] [id number] [facility]08-22-2025 Hospital Discharge instructionsAdditional Instructions Date of Discharge: 07/20/25[facility] Work Phone: 1(613) 849-773508-22-2025 Progress note Author Canelo Myers [facility] Note Date/Time July 20, 2025 9: 04am [facility] Medical Records Department [address] [place] [address] Progress Note - Hospitalist 07/20/25 0731 MR#: [id number] Acct: [id number] Name: JOSEPH RINCON Rep #:[id number] : 1975 50 From: Canelo Myers MD PCP: Dr. Abisai Haley MD Status:ADM IN [facility] Reason for Visit Chief Complaint: Abdominal pain [...] 24 hr 07/19/25 06:24: Platelet Estimate SLT DEC 07/19/25 11:58: POC Glucose 140 H 07/19/25 [...] % (Auto) 66.7, Lymph % (Auto) 19.5, [place] % (Auto) 11.8 H, Eos % (Auto) [...] 40 minutes Charges/Coding Visit Charges Inpatient E&M: 58160 Subs Hosp L2 07/20/25 0904 <Electronically signed by Canelo Myers MD> Cosigner Signature (if applicable): CC: ~ Signed [facility] Work Phone: 1(703) 109-194308-21-2025 Progress note Author Canelo Myers [facility] Note Date/Time July 19, 2025 9: 41am [facility] Medical Records Department [address] [place] [address] Progress Note - Hospitalist 07/19/25937 MR#: [id number] Acct: [id number] Name: JOSEPH RINCON Rep #:[id number] : 1975 50 From: Cnaelo Myers MD PCP: Dr. Abisai Haley MD Status:ADM IN Location: [place] 104009-1 Reason for Visit Chief Complaint: Abdominal pain [...] 150 Lab / Micro Data 07/19/25 06:24 08/21/25 06:24 Labs: Laboratory Results - last 24 [...] % (Auto) 61.0, Lymph % (Auto) 25.9, [place] % (Auto) 10.3 H, Eos % (Auto) [...] 40 minutes Charges/Coding Visit Charges Inpatient E&M: 24293 Subs Hosp L2 07/19/25 0941 <Electronically signed by Canelo Myers MD> Cosigner Signature (if applicable): CC: ~ Signed [facility] Work Phone: 1(128) 988-472108-20-2025 Progress note Author Canelo Myers [facility] Note Date/Time July 18, 2025 9: 43am [facility] Medical Records Department [address] [place] [address] Progress Note - Hospitalist 07/18/25 0745 MR#: [id number] Acct: [id number] Name: JOSEPH RINCON Rep #:[id number] : 1975 50 From: Canelo Myers MD PCP: Dr. Abisai Haley MD Status:ADM IN Location: [place] [address] Reason for Visit Chief Complaint: Abdominal pain [...] 80.3 H, Lymph % (Auto) 11.2 L, [place] % (Auto) 7.2, Eos % (Auto) 0.3, [...] Clarity Clear, Urine pH 6.5, Ur Specific [place] 1.010, Urine Protein 30 H, Urine Glucose [...] 73.2 H, Lymph % (Auto) 14.1 L, [place] % (Auto) 9.2, Eos % (Auto) 2.4, [...] retroperitoneum related to the pancreatitis. Reading Location: [facility] Physical Exam Narrative GENERAL: cooperative but [...] 50 minutes Charges/Coding Visit Charges Inpatient E&M: 94663 Subs Hosp L3 07/18/25 0943 <Electronically signed by Canelo Myers MD> Cosigner Signature (if applicable): CC: ~ Signed [facility] Work Phone: 1(566) 762-874208-19-2025 Discharge summary Author Francisco Colon [facility] Note Date/Time July 17, 2025 3: 13pm [facility] Medical Records Department [address] [place] [address] Emergency Department Summary 07/17/25 MR#: [id number] Acct: [id number] Name: JOSEPH RINCON Rep #:[id number] : 1975 50 From: Francisco Colon MD PCP: Dr. Abisai Haley MD Status:ADM IN Location: [facility] SQ369-3 HPI HPI - GI History of Present [...] similar symptoms: Yes Recent Illness/Hospitalization: No PFSH PFS Medical History Admitted to alcohol detoxification center [...] 80.3 H Lymph % (Auto) 11.2 L [place] % (Auto) 7.2 Eos % (Auto) 0.3 [...] Clarity Clear Urine pH 6.5 Ur Specific [place] 1.010 Urine Protein 30 H Urine Glucose [...] Clinical Impression(s) from Imaging Studies Abdomen/Pelvis CT 07/17/25 11:09 IMPRESSION: 1. Acute on chronic, uncomplicated, interstitial edematous pancreatitis. 2. Cholecystectomy. No biliary duct dilation. 3. Mild liver enlargement. Very severe fatty infiltration. 4. Small volume free fluid in the cul-de-sac is reactive. Small free fluid in the retroperitoneum related to the pancreatitis. Reading Location: [facility] Discharge Plan Triage Chief Complaint: Abd [...] MD [Primary Care Provider] - Print Language: Guamanian Disposition Disposition: Acute Care Hospital [facility] What to do if you have Problems For any increased pain, shortness of breath, bleeding, nausea or vomiting, chestpain, or any unexpected problems, contact your Primary Care Provider. Call [facility] ([phone]) or report to the closest Emergency Room. Call 911 if necessary. 07/17/25 1513 <Electronically signed by Francisco Colon MD> Cosigner Signature (if applicable): CC: Dr. Abisai Haley MD ~ Signed [facility] Work Phone: 1(335) 899-486608-19-2025 History and physical note Author Canelo Myers [facility] Note Date/Time July 17, 2025 1: 22pm [facility] Medical Records Department [address] [place] [address] H&P Exam - Hospitalist 07/17/25 1304 MR#: [id number] Acct: [id number] Name: JOSEPH RINCON Rep #:[id number] : 1975 50 From: Canelo Myers MD PCP: Dr. Abisai Haley MD Status:ADM IN Location: [place] LV106-0 HPI - General General Date of Admission: [...] to regular nursing floor for further manage [facility] Medical History Admitted to alcohol detoxification center [...] 80.3 H, Lymph % (Auto) 11.2 L, [place] % (Auto) 7.2, Eos % (Auto) 0.3, [...] Clarity Clear, Urine pH 6.5, Ur Specific [place] 1.010, Urine Protein 30 H, Urine Glucose [...] retroperitoneum related to the pancreatitis. Reading Location: [id number] Assessment & Plan Assessment/Plan (1) Acute alcoholic [...] Multi Select Codes Visit Charges Visit Charges: 23543 Init Hosp L3 07/17/25 1322 <Electronically signed by Canelo Myers MD> Cosigner Signature (if applicable): CC: Dr. Abisai Haley MD; Dr. Canelo Myers MD~ Signed [facility] Work Phone: 1(331) 149-863908-19-2025 Radiology Diagnostic study [facility]06-30-2025 Consult note [facility] Medical Records Department [address] [place] [address] Counseling Note - Pharmacy 05/28/25 1332 MR#: [id number] Acct: [id number] Name: JOSEPH RINCON Rep #:[id number] : 1975 50 From: Sho Leyva PCP: Dr. Abisai Haley MD Status:ADM IN Location: [place] [address] Pharmacy [place] Med Reconciliation Pharmacy Service has performed discharge [...] Signature (if applicable): Date CC: ~ Signed [facility]06-30-2025 Hospital Discharge instructionsAdditional Instructions Follow up with outpatient detox ([facility]) as directed Date of Discharge: 05/28/25[facility] Work Phone: 1(139) 897-845906-30-2025 Discharge summary [facility] Medical Records Department [address] [facility] [place] [address] Discharge Summary 05/28/25 1313 MR#: [id number] Acct: [id number] Name: JOSEPH RINCON Rep #:[id number] : 1975 50 From: Mao Becker DO PCP: Dr. Abisai Haley MD Status:ADM IN [facility] Providers Date of Admission: 05/25/25 Date of Discharge: 05/28/25 Primary Care Physician: Abisai Haley MD Reason For Visit: ETOH DETOXIFICATION, WITHDRAWL Diagnosis Discharge Diagnosis (1) Admitted to alcohol detoxification center: Status: Acute Plan 1. Acute alcohol withdrawal-patient will remain on her present medications, addiction manager social media will talk with the patient #2 hypomagnesemia-magnesium [...] was seen in the emergency room at [facility] for alcohol detox. She had been admitted previously only several weeks ago for pancreatitis and alcohol withdrawal and had already gone through the program at that time. Her toxicology screen was positive for barbiturates and benzodiazepines, but alcohol level was 312. [facility], orders were entered using the alcohol detox order set and she was seen by addiction manager social media. Patient had minimal withdrawal symptoms to hospitalization [...] Self Care Charges/Coding Visit Charges Inpatient E&M: 12046 Disch Hosp >30min 05/28/25 1316 Cosigner Signature (if applicable): CC: Dr. Abisai Haley MD; Dr. Mao Becker, ~ Signed [facility]06-30-2025 [facility] Discharge summary [facility] Medical Records Department [address] [place] [address] Instructions for Home/Discharge Instructions 05/28/25 1020 MR#: [id number] Acct: [id number] Name: JOSEPH RINCON Rep #:[id number] : 1975 50 From: Mao Becker DO [...] MD; Dr. Abisai Haley MD ~ Signed [facility]06-30-2025 Discharge summary Author Mao [facility] Note Date/Time May 28, 2025 12:4 9pm [facility] Medical Records Department [address] [place] [address] Instructions for Home/Discharge Instructions 05/28/25 1020 MR#: [id number] Acct: [id number] Name: JOSEPH RINCON Rep #:[id number] : 1975 50 From: Moa Becker DO PCP: Dr. Abisai Haley MD [...] can be placed): Home, Self Care 05/28/25 1249<Electronically signed by Mao Becker DO>Mao Becker DO CC: Dr. Myra Null MD; Dr. Abisai Haley MD ~ Signed [facility] Work Phone: 1(813) 407-452706-29-2025 Progress note Author Mao [facility] Note Date/Time May 27, 2025 3:33 pm [facility] Medical Records Department [address] [place] [address] Progress Note - Hospitalist 05/27/25 1531 MR#: [id number] Acct: [id number] Name: JOSEPH RINCON Rep #:[id number] : 1975 50 From: Mao Becker DO PCP: Dr. Abisai Haley MD Status:ADM IN Location: [facility] OO726-8 Subjective Subjective Patient was seen and examined [...] will remain on her present medications, addiction manager social media will talk with the patient #2 hypomagnesemia-magnesium [...] team: 35-minute Charges/Coding Visit Charges Inpatient E&M: 96036 Subs Hosp L2 05/27/25 1533 <Electronically signed by Mao Becker DO> Cosigner Signature (if applicable): CC: ~ Signed [facility] Work Phone: 1(856) 291-423106-29-2025 Progress note [facility] Medical Records Department [address] [place] [address] Progress Note - Hospitalist 05/27/25 1531 MR#: [id number] Acct: [id number] Name: JOSEPH RINCON Rep #:[id number] : 1975 50 From: Mao Becker DO PCP: Dr. Abisai Haley MD Status:ADM IN [facility] Subjective Subjective Patient was seen and examined [...] Intake and Output for Last 24 Hours 06/27/25 06/28/25 06/29/25 23:59 23:59 23:59 Intake Total 2099 100 [...] will remain on her present medications, addiction manager social media will talk with the patient #2 hypomagnesemia-magnesium [...] team: 35-minute Charges/Coding Visit Charges Inpatient E&M: 68427 Subs Hosp L2 05/27/25 1533 Cosigner Signature (if applicable): CC: ~ Signed [facility]06-28-2025 Progress note Author Mao Becker [facility] Note Date/Time May 26, 2025 1:39 pm [facility] Medical Records Department [address] [place] [address] Progress Note - Hospitalist 05/26/25 1335 MR#: [id number] Acct: [id number] Name: JOSEPH RINCON Rep #:[id number] : 1975 50 From: Mao Becker DO PCP: Dr. Abisai Haley MD Status:ADM IN [facility] Subjective Subjective Patient was seen and examined [...] will remain on her present medications, addiction manager social media will talk with the patient #2 hypomagnesemia-magnesium [...] team: 35-minute Charges/Coding Visit Charges Inpatient E&M: 86053 Subs Hosp L2 05/26/25 1339 <Electronically signed by Mao Becker DO> Cosigner Signature (if applicable): CC: ~ Signed [facility] Work Phone: 1(438) 220-386606-28-2025 Progress note [facility] Medical Records Department [address] [place] [address] Progress Note - Hospitalist 05/26/25 1335 MR#: [id number] Acct: [id number] Name: JOSEPH RINCON Rep #:[id number] : 1975 50 From: Mao Becker DO PCP: Dr. Abisai Haley MD Status:ADM IN Location: [place] WA249-3 Subjective Subjective Patient was seen and examined today, her magnesium is low and she appears to be sleepy. She has no specific complaints today. Objective Data Objective Data Vital Signs: Vital Signs Temp Pulse Resp BP Pulse Ox O2 Del Method O2 Flow Rate 97.4 F L 80 16 117/72 94 Room Air 1 05/26/25 11:25 05/26/25 11:05/26/25 11:05/26/25 11:05/26/25 11:05/26/25 11:05/25/25 18:25 Oxygen Flow Rate (L/min) 1 [...] will remain on her present medications, addiction manager social media will talk with the patient #2 hypomagnesemia-magnesium [...] team: 35-minute Charges/Coding Visit Charges Inpatient E&M: 57299 Subs Hosp L2 05/26/25 1337 Cosigner Signature (if applicable): CC: ~ Signed [facility]06-27-2025 Progress note Author Mao [facility] Note Date/Time May 25, 2025 5:04 pm [facility] Medical Records Department [address] [place] [address] Progress Note - Hospitalist 05/25/251701 MR#: [id number] Acct: [id number] Name: JOSEPH RINCON Rep #:[id number] : 1975 50 From: Mao Becker DO PCP: Dr. Abisai Haley MD Status:ADM IN Location: [place] [address] Hospitalist Note Patient was seen and examined today, she was admitted for alcohol detox-patient had just been discharged on 05/06/2025 after completing alcohol detox and treatment for pancreatitis. There is a note from addiction manager social media thatstates the patient will follow-up with [facility] for outpatient [facility] treatment. 05/25/251703 <Electronically signed by Mao Becker DO> Cosigner Signature (if applicable): CC: ~ Signed [facility] Work Phone: 1(509) 565-409506-27-2025 Progress note [facility] Medical Records Department [address] [place] [address] Progress Note - Hospitalist 05/25/25 1702 MR#: [id number] Acct: [id number] Name: JOSEPH RINCON Rep #:[id number] : 1975 50 From: Mao Becker DO PCP: Dr. Abisai Haley MD Status:ADM IN Location: [place] [address] Hospitalist Note Patient was seen and examined today, she was admitted for alcohol detox-patient had just been discharged on 05/06/2025 after completing alcohol detox and treatment for pancreatitis. There is a note from addiction manager social media thatstates the patient will follow-up with [facility] for outpatient [facility] treatment. 05/25/25 170 Cosigner Signature (if applicable): CC: ~ Signed [facility]06-27-2025 Discharge summary Author Andrew Maurice [facility] Note Date/Time May 25, 2025 2:37 am [facility] Medical Records Department [address] [place] [address] Emergency Department Summary 05/25/25 MR#: [id number] Acct: [id number] Name: JOSEPH RINCON Rep #:[id number] : 1975 50 From: Andrew elizondo DO PCP: Dr. Abisai Haley MD Status:ADM IN Location: [place] [address] HPI History of Present Illness Chief Complaint: [...] intact Psych: Cooperative, appropriate mood and affect [facility] Medical History Pancreatitis Hypokalemia Nausea & [...] (Auto) 49.9 Lymph % (Auto) 41.1 H [place] % (Auto) 7.7 Eos % (Auto) 0.7 [...] Clarity Clear Urine pH 6.0 Ur Specific [place] 1.015 Urine Protein 30 H Urine Glucose [...] Discharge Plan Disposition Disposition: Acute Care Hospital [facility] Discharge Date/Time: 05/25/25 02:28 What to do if you have Problems For any increased pain, shortness of breath, bleeding, nausea or vomiting, chestpain, or any unexpected problems, contact your Primary Care Provider. Call [facility] ([phone]) or report to the closest Emergency Room. Call 911 if necessary. 05/25/25 0237 <Electronically signed by Andrew Maurice DO> Cosigner Signature (if applicable): CC: Dr. Abisai Haley MD ~ Signed [facility] Work Phone: 1(213) 753-821706-27-2025 History and physical note Author Myra Null [facility] Note Date/Time May 25, 2025 1:54 am [facility] Medical Records Department [address] [place] [address] H&P Exam - Hospitalist 05/25/25 0037 MR#: [id number] Acct: [id number] Name: JOSEPH RINCON Rep #:[id number] : 1975 50 From: Myra Null MD [...] (>1/5 vodka daily) who presents to the [facility] ED on 05/25/25 with history of requesting [...] 1, Zofran 4 mg IV x 1. [facility] Medical History Pancreatitis Hypokalemia Nausea & vomiting [...] (>1/5 vodka daily) who presents to the [facility] ED on 05/25/25 with history of requesting [...] admission presentation. Charges/Coding Visit Charges Inpatient E&M: 79796 Init Hosp L3 05/25/25 0154 <Electronically signed by Myra Null MD> Cosigner Signature (if applicable): CC: Dr. Myra Null MD; Dr. Abisai Haley MD~ Signed [facility] Work Phone: 1(150) 785-802106-27-2025 Discharge summary [facility] Medical Records Department [address] [place] [address] Emergency Department Summary 05/25/25 MR#: [id number] Acct: [id number] Name: JOSEPH RINCON Rep #:[id number] : 1975 50 From: Andrew elizondo DO PCP: Dr. Abisai Haley MD Status:ADM IN Location: [place] [address] HPI History of Present Illness Chief Complaint: [...] intact Psych: Cooperative, appropriate mood and affect [facility] Medical History Pancreatitis Hypokalemia Nausea & [...] (Auto) 49.9 Lymph % (Auto) 41.1 H [place] % (Auto) 7.7 Eos % (Auto) 0.7 [...] Clarity Clear Urine pH 6.0 Ur Specific [place] 1.015 Urine Protein 30 H Urine Glucose [...] Discharge Plan Disposition Disposition: Acute Care Hospital [facility] Discharge Date/Time: 05/25/25 02:28 What to do if you have Problems For any increased pain, shortness of breath, bleeding, nausea or vomiting, chestpain, or any unexpected problems, contact your Primary Care Provider. Call [facility] ([phone]) or report tothe closest Emergency Room. Call 911 if necessary. 05/25/25 0237 Cosigner Signature (if applicable): CC: Dr. Abisai Haley MD ~ Signed [facility]06-27-2025 History and physical note [facility] Medical Records Department [address] [place] [address] H&P Exam - Hospitalist 05/25/25 0037 MR#: [id number] Acct: [id number] Name: JOSEPH RINCON Rep #:[id number] : 1975 50 From: Myra Null MD [...] (>1/5 vodka daily) who presents to the [facility] ED on 05/25/25 with history of requesting [...] 1, Zofran 4 mg IV x 1. [facility] Medical History Pancreatitis Hypokalemia Nausea & vomiting [...] (>1/5 vodka daily) who presents to the [facility] ED on 05/25/25 with history of requesting [...] admission presentation. Charges/Coding Visit Charges Inpatient E&M: 44935 Init Hosp L3 05/25/25 0154 Cosigner Signature (if applicable): CC: Dr. Myra Null MD; Dr. Abisai Haley MD~ Signed [facility]06-08-2025 Discharge summary [facility] Medical Records Department [address] [place] [address] Instructions for Home/Discharge Instructions 05/06/25 1312 MR#: [id number] Acct: [id number] Name: JOSEPH RINCON Rep #:[id number] : 1975 50 From: Mao Becker DO [...] can be placed): Home, Self Care 05/06/25 1322[facility] DO CC: Dr. Julius Moncada MD; Dr. Abisai Haley MD; Dr. Canelo Myers MD ~ Signed [facility]06-08-2025 [facility] Progress note Author Canelo Myers [facility] Note Date/Time May 04, 2025 9:53a m [facility] Medical Records Department [address] [facility] [place] [address] Progress Note - Hospitalist 05/04/25 0742 MR#: [id number] Acct: [id number] Name: JOSEPH RINCON Rep #:[id number] : 1975 50 From: Canelo Myers MD PCP: Dr. Abisai Haley MD Status:ADM IN Location: [place] [address] Reason for Visit Reason for Visit: Diagnoses [...] 04/27/25 14:17 SB (Rec: 04/27/25 14:17 SB [id number]) Nutrition Malnutrition Evidence of Yes Malnutrition Exists [...] % (Auto) 58.1, Lymph % (Auto) 23.0, [place] % (Auto) 15.4 H, Eos % (Auto) [...] ? Requested for PT OT eval and manager social media to assist with discharge planning ? 05/03/2025; patient remains physical deconditioning. She is agreeable to being discharged with detention facility for rehab this was discussed with patient's son Tan was in the room Time spent in the patient's overall evaluation,decision-making process, review of diagnostic data, adjustment of management, discussion with other providers, nursing nursing and ancillary staff involved in patient's care documentation, 35minutes Charges/Coding Visit Charges Inpatient E&M: 33923 Subs Hosp L2 05/04/25 0953 <Electronically signed by Canelo Myers MD> Cosigner Signature (if applicable): CC: ~ Signed [facility] Work Phone: 1(870) 615-769606-06-2025 Progress note [facility] Medical Records Department [address] [place] [address] Progress Note - Hospitalist 05/04/25 0742 MR#: [id number] Acct: [id number] Name: JOSEPH RINCON Rep #:[id number] : 1975 50 From: Canelo Myers MD PCP: Dr. Abisai Haley MD Status:ADM IN Location: [place] [address] Reason for Visit Reason for Visit: Diagnoses [...] 04/27/25 14:17 SB (Rec: 04/27/25 14:17 SB [id number]) Nutrition Malnutrition Evidence of Yes Malnutrition Exists [...] % (Auto) 58.1, Lymph % (Auto) 23.0, [place] % (Auto) 15.4 H, Eos % (Auto) [...] ? Requested for PT OT eval and manager social media to assist with discharge planning ? 05/03/2025; patient remains physical deconditioning. She is agreeable to being discharged with detention facility for rehab this was discussed with patient's son Tan was in the room Time spent in the patient's overall evaluation,decision-making process, review of diagnostic data, adjustment of management, discussion with other providers, nursing nursing and ancillary staff involved in patient's care documentation, 35minutes Charges/Coding Visit Charges Inpatient E&M: 74307 Subs Hosp L2 05/04/25 0953 Cosigner Signature (if applicable): CC: ~ Signed [facility]06-05-2025 Progress note Author Canelo Myers [facility] Note Date/Time May 03, 2025 11:37 am [facility] Medical Records Department [address] [place] [address] Progress Note - Hospitalist 05/03/25 1136 MR#: [id number] Acct: [id number] Name: JOSEPH RINCON Rep #:[id number] : 1975 50 From: Canelo Myers MD PCP: Dr. Abisai Haley MD Status:ADM IN Location: [place] [address] Reason for Visit Reason for Visit: Diagnoses Acute pancreatitis without necrosis or infection, unspecified (04/26/25) Subjective Subjective Patient has completed phenobarb taper. She however remains physically deconditioned. She is agreeable to being discharged to a detention facility for rehab Objective Data Objective Data [...] 04/27/25 14:17 SB (Rec: 04/27/25 14:17 SB [id number]) Nutrition Malnutrition Evidence of Yes Malnutrition Exists [...] % (Auto) 61.1, Lymph % (Auto) 19.7, [place] % (Auto) 15.1 H, Eos % (Auto) [...] ? Requested for PT OT eval and manager social media to assist with discharge planning ? 05/03/2025; patient remains physical deconditioning. She is agreeable to being discharged with detention facility for rehab this was discussed with patient's son Tan was in the room Charges/Coding Visit Charges Inpatient E&M: 26206 Subs Hosp L2 05/03/25 1137 <Electronically signed by Canelo Myers MD> Cosigner Signature (if applicable): CC: ~ Signed [facility] Work Phone: 1(375) 315-744906-05-2025 Progress note [facility] Medical Records Department [address] [place] [address] Progress Note - Hospitalist 05/03/25 1136 MR#: [id number] Acct: [id number] Name: JOSEPH RINCON Rep #:[id number] : 1975 50 From: Canelo Myers MD PCP: Dr. Abisai Haley MD Status:ADM IN Location: [place] [address] Reason for Visit Reason for Visit: Diagnoses Acute pancreatitis without necrosis or infection, unspecified (04/26/25) Subjective Subjective Patient has completed phenobarb taper. She however remains physically deconditioned. She is agreeable to being discharged to a detention facility for rehab Objective Data Objective Data [...] 04/27/25 14:17 SB (Rec: 04/27/25 14:17 SB [id number]) Nutrition Malnutrition Evidence of Yes Malnutrition Exists [...] % (Auto) 61.1, Lymph % (Auto) 19.7, [place] % (Auto) 15.1 H, Eos % (Auto) [...] ? Requested for PT OT eval and manager social media to assist with discharge planning ? 05/03/2025; patient remains physical deconditioning. She is agreeable to being discharged with detention facility for rehab this was discussed with patient's son Tan was in the room Charges/Coding Visit Charges Inpatient E&M: 38582 Subs Hosp L2 05/03/25 1137 Cosigner Signature (if applicable): CC: ~ Signed [facility]06-04-2025 Progress note Author Canelo Myers [facility] Note Date/Time May 02, 2025 11:07 am [facility] Medical Records Department [address] [place] [address] Progress Note - Hospitalist 05/02/25 0736 MR#: [id number] Acct: [id number] Name: JOSEPH RINCON Rep #:[id number] : 1975 50 From: Canelo Myers MD PCP: Dr. Abisai Haley MD Status:ADM IN Location: [place] [address] Reason for Visit Reason for Visit: Diagnoses [...] 04/27/25 14:17 SB (Rec: 04/27/25 14:17 SB [id number]) Nutrition Malnutrition Evidence of Yes Malnutrition Exists [...] % (Auto) 57.2, Lymph % (Auto) 22.5, [place] % (Auto) 15.8 H, Eos % (Auto) [...] ? Requested for PT OT eval and manager social media to assist with discharge planning Charges/Coding Visit Charges Inpatient E&M: 64396 Subs Hosp L2 05/02/25 1107 <Electronically signed by Canelo Myers MD> Cosigner Signature (if applicable): CC: ~ Signed [facility] Work Phone: 1(103) 805-876006-04-2025 Progress note [facility] Medical Records Department [address] [place] [address] Progress Note - Hospitalist 05/02/25 0736 MR#: [id number] Acct: [id number] Name: JOSEPH RINCON Rep #:[id number] : 1975 50 From: Canelo Myers MD PCP: Dr. Abisai Haley MD Status:ADM IN Location: [place] [address] Reason for Visit Reason for Visit: Diagnoses [...] 04/27/25 14:17 SB (Rec: 04/27/25 14:17 SB [id number]) Nutrition Malnutrition Evidence of Yes Malnutrition Exists [...] % (Auto) 57.2, Lymph % (Auto) 22.5, [place] % (Auto) 15.8 H, Eos % (Auto) [...] ? Requested for PT OT eval and manager social media to assist with discharge planning Charges/Coding Visit Charges Inpatient E&M: 41774 Subs Hosp L2 05/02/25 1107 Cosigner Signature (if applicable): CC: ~ Signed [facility]06-03-2025 Progress note Author Canelo Myers [facility] Note Date/Time May 01, 2025 9:31a m [facility] Medical Records Department [address] [place] [address] Progress Note - Hospitalist 05/01/25 0930 MR#: [id number] Acct: [id number] Name: JOSEPH RINCON #:[id number] : 1975 50 From: Canelo Myers MD PCP: Dr. Abisai Haley MD Status:ADM IN Location: [place] [address] Reason for Visit Reason for Visit: Diagnoses [...] 04/27/25 14:17 SB (Rec: 04/27/25 14:17 SB [id number]) Nutrition Malnutrition Evidence of Yes Malnutrition Exists [...] ? Requested for PT OT eval and manager social media to assist with discharge planning Charges/Coding Visit Charges Inpatient E&M: 40107 Subs Hosp L2 05/01/25 0931 <Electronically signed by Canelo Myers MD> Cosigner Signature (if applicable): CC: ~ Signed [facility] Work Phone: 1(859) 588-107106-03-2025 Progress note [facility] Medical Records Department [facility] [place] [address] Progress Note - Hospitalist 05/01/25 0930 MR#: [id number] Acct: [id number] Name: JOSEPH RINCON Rep #:[id number] : 1975 50 From: Canelo Myers MD PCP: Dr. Abisai Haley MD Status:ADM IN Location: [place] [address] Reason for Visit Reason for Visit: Diagnoses [...] 04/27/25 14:17 SB (Rec: 04/27/25 14:17 SB [id number]) Nutrition Malnutrition Evidence of Yes Malnutrition Exists [...] ? Requested for PT OT eval and manager social media to assist with discharge planning Charges/Coding Visit Charges Inpatient E&M: 42746 Subs Hosp L2 05/01/25 9988 Cosigner Signature (if applicable): CC: ~ Signed [facility]06-02-2025 Progress note Author Canelo Myers [facility] Note Date/Time April 30, 2025 9:35a m [facility] Medical Records Department [address] [place] [address] Progress Note - Hospitalist 04/30/25813 MR#: [id number] Acct: [id number] Name: JOSEPH RINCON Rep #:[id number] : 1975 50 From: Canelo Myers MD PCP: Dr. Abisai Haley MD Status:ADM IN Location: [place] [address] Reason for Visit Reason for Visit: Diagnoses [...] 04/27/25 14:17 SB (Rec: 04/27/25 14:17 SB [id number]) Nutrition Malnutrition Evidence of Yes Malnutrition Exists [...] % (Auto) 59.8, Lymph % (Auto) 23.4, [place] % (Auto) 13.8 H, Eos % (Auto) [...] weight trends. Charges/Coding Visit Charges Inpatient E&M: 56300 Subs Hosp L2 04/30/25 0987 <Electronically signed by Canelo Myers MD> Cosigner Signature (if applicable): CC: ~ Signed [facility] Work Phone: 1(407) 392-697106-02-2025 Progress note [facility] Medical Records Department [address] [place] [address] Progress Note - Hospitalist 04/30/2514 MR#: [id number] Acct: [id number] Name: JOSEPH RINCON Rep #:[id number] : 1975 50 From: Canelo Myers MD PCP: Dr. Abisai Haley MD Status:ADM IN Location: [place] [address] Reason for Visit Reason for Visit: Diagnoses [...] / 8071.3333 2450 / 2450 Output Total / Balance 3859.33 / 4219.33 7591.3333 / 8067.3333 2446 / 2446 Medical Nutrition Assessment Dietitian: Malnutrition Criteria Met Start: 04/27/25 14:17 Freq: Status: Active Protocol: Document 04/27/25 14:17 SB (Rec: 04/27/25 14:17 SB [id number]) Nutrition Malnutrition Evidence of Yes Malnutrition Exists [...] % (Auto) 59.8, Lymph % (Auto) 23.4, [place] % (Auto) 13.8 H, Eos % (Auto) [...] weight trends. Charges/Coding Visit Charges Inpatient E&M: 76225 Subs Hosp L2 04/30/25 0904 Cosigner Signature (if applicable): CC: ~ Signed [facility]06-01-2025 Progress note Author Canelo Myers [facility] Note Date/Time April 29, 2025 8:44[facility] Medical Records Department [address] [place] [address] Progress Note - Hospitalist 04/29/25 0733 MR#: [id number] Acct: [id number] Name: JOSEPH RINCON Rep #:[id number] : 1975 50 From: Canelo Myers MD PCP: Dr. Abisai Haley MD Status:ADM IN Location: [place] [address] Reason for Visit Reason for Visit: Diagnoses [...] 04/27/25 14:17 SB (Rec: 04/27/25 14:17 SB [id number]) Nutrition Malnutrition Evidence of Yes Malnutrition Exists [...] Std Deviation 47.6 H, RDW Coeff of [place]at[place] 12.2, Plt Count 110 L, MPV 10.5, Immature Gran % (Auto) 0.600, Neut % (Auto) 72.9 H, Lymph % (Auto) 14.1 L, [place] % (Auto) 10.9 H, Eos % (Auto) [...] 50 Minutes Charges/Coding Visit Charges Inpatient E&M: 14352 Subs Hosp L3 04/29/25 0844 <Electronically signed by Canelo Myers MD> Cosigner Signature (if applicable): CC: ~ Signed [facility] Work Phone: 1(334) 453-489306-01-2025 Progress note [facility] Medical Records Department [address] [place] [address] Progress Note - Hospitalist 04/29/25 0733 MR#: [id number] Acct: [id number] Name: JOSEPH RINCON Rep #:[id number] : 1975 50 From: Canelo Myers MD PCP: Dr. Abisai Haley MD Status:ADM IN Location: [place] [address] Reason for Visit Reason for Visit: Diagnoses [...] 04/27/25 14:17 SB (Rec: 04/27/25 14:17 SB [id number]) Nutrition Malnutrition Evidence of Yes Malnutrition Exists [...] 72.9 H, Lymph % (Auto) 14.1 L, [place] % (Auto) 10.9 H, Eos % (Auto) [...] 50 Minutes Charges/Coding Visit Charges Inpatient E&M: 18301 Subs Hosp L3 04/29/25 0844 Cosigner Signature (if applicable): CC: ~ Signed [facility]05-31-2025 Progress note Author Canelo Myers [facility] Note Date/Time April 28, 2025 9:47a m [facility] Medical Records Department [address] [place] [address] Progress Note - Hospitalist 04/28/25 0942 MR#: [id number] Acct: [id number] Name: JOSEPH RINCON Rep #:[id number] : 1975 50 From: Canelo Myers MD PCP: Dr. Abisai Haley MD Status:ADM IN Location: [place] [address] Reason for Visit Reason for Visit: Diagnoses [...] 04/27/25 14:17 SB (Rec: 04/27/25 14:17 SB [id number]) Nutrition Malnutrition Evidence of Yes Malnutrition Exists [...] 78.0 H, Lymph % (Auto) 12.5 L, [place] % (Auto) 8.0, Eos % (Auto) 0.8, [...] 52 Minutes Charges/Coding Visit Charges Inpatient E&M: 31775 Subs Hosp L3 04/28/25 0947 <Electronically signed by Canelo Myers MD> Cosigner Signature (if applicable): CC: ~ Signed [facility] Work Phone: 1(103) 151-207705-31-2025 Progress note [facility] Medical Records Department [address] [place] [address] Progress Note - Hospitalist 04/28/25 0942 MR#: [id number] Acct: [id number] Name: JOSEPH RINCON Rep #:[id number] : 1975 50 From: Canelo Myers MD PCP: Dr. Abisai Haley MD Status:ADM IN Location: [place] [address] Reason for Visit Reason for Visit: Diagnoses [...] 04/27/25 14:17 SB (Rec: 04/27/25 14:17 SB [id number]) Nutrition Malnutrition Evidence of Yes Malnutrition Exists [...] 78.0 H, Lymph % (Auto) 12.5 L, [place] % (Auto) 8.0, Eos % (Auto) 0.8, [...] 52 Minutes Charges/Coding Visit Charges Inpatient E&M: 23951 Subs Hosp L3 04/28/25 0947 Cosigner Signature (if applicable): CC: ~ Signed [facility]05-30-2025 Progress note Author Canelo Myers [facility] Note Date/Time April 27, 2025 1:15p m [facility] Medical Records Department [address] [place] [address] Progress Note - Hospitalist 04/27/25 0939 MR#: [id number] Acct: [id number] Name: JOSEPH RINCON Rep #:[id number] : 1975 50 From: Canelo Myers MD PCP: Dr. Abisai Haley MD Status:ADM IN Location: [place] [address] Reason for Visit Reason for Visit: Diagnoses [...] (Auto) 84.6 H, Lymph % (Auto) 7.3L, [place] % (Auto) 7.0, Eos % (Auto) 0.0, [...] Clarity Clear, Urine pH 6.0, Ur Specific [place] 1.010, Urine Protein 30 H, Urine Glucose [...] (Auto) 84.0 H, Lymph % (Auto)7.3 L, [place] % (Auto) 7.9, Eos % (Auto) 0.1, [...] fatty infiltration of the liver. Reading Location: [facility] Physical Exam Narrative GENERAL: cooperative HEENT: Atraumatic; [...] 50 Minutes Charges/Coding Visit Charges Inpatient E&M: 04182 Subs Hosp L3 04/27/25 1315 <Electronically signed by Canelo Myers MD> Cosigner Signature (if applicable): CC: ~ Signed [facility] Work Phone: 1(644) 423-223305-30-2025 Progress note [facility] Medical Records Department [address] [place] [address] Progress Note - Hospitalist 04/27/25 0939 MR#: [id number] Acct: [id number] Name: JOSEPH RINCON Rep #:[id number] : 1975 50 From: Canelo Myers MD PCP: Dr. Abisai Haley MD Status:ADM IN Location: [place] [address] Reason for Visit Reason for Visit: Diagnoses [...] (Auto) 84.6 H, Lymph % (Auto) 7.3L, [place] % (Auto) 7.0, Eos % (Auto) 0.0, [...] Clarity Clear, Urine pH 6.0, Ur Specific [place] 1.010, Urine Protein 30 H, Urine Glucose [...] (Auto) 84.0 H, Lymph % (Auto)7.3 L, [place] % (Auto) 7.9, Eos % (Auto) 0.1, Baso % (Auto) 0.3, Absolute Neuts (auto) 9.6 H, Absolute Lymphs (auto) 0.83, Nucleated RBC % 0, PT 12.9, INR 1.0, [id number], Potassium 3.8, Chloride 96 L, Carbon Dioxide [...] fatty infiltration of the liver. Reading Location: [facility] Physical Exam Narrative GENERAL: cooperative HEENT: Atraumatic; [...] 50 Minutes Charges/Coding Visit Charges Inpatient E&M: 50080 Subs Hosp L3 04/27/25 1315 Cosigner Signature (if applicable): CC: ~ Signed [facility]05-29-2025 History and physical note Author Julius Moncada [facility] Note Date/Time April 26, 2025 8:28p m [facility] Medical Records Department [address] [place] [address] H&P Exam - Hospitalist 04/26/25 1718 MR#: [id number] Acct: [id number] Name: JOSEPH RINCON Rep #:[id number] : 1975 50 From: Julius Moncada MD PCP: Dr. Abisai Haley MD Status:[facility] HPI - General General Date of [...] phosphatase 122 total protein 7.7, albumin 4.5 PFSH Medical History Strain of left foot [...] (Auto) 84.6 H, Lymph % (Auto) 7.3L, [place] % (Auto) 7.0, Eos % (Auto) 0.0, [...] Clarity Clear, Urine pH 6.0, Ur Specific [place] 1.010, Urine Protein 30 H, Urine Glucose [...] fatty infiltration of the liver. Reading Location: [id number] Assessment & Plan Assessment/Plan (1) Pancreatitis: PLAN: [...] - No concerns regarding exocrine insufficiency - [place] pain control with Tylenol and opioids - [...] Moncada MD; Dr. Abisai Haley MD~ Signed [facility] Work Phone: 1(577) 426-188905-29-2025 History and physical note [facility] Medical Records Department [address] [place] [address] H&P Exam - Hospitalist 04/26/25 1718 MR#: [id number] Acct: [id number] Name: JOSEPH RINCON Rep #:[id number] : 1975 50 From: Julius Moncada MD PCP: Dr. Abisai Haley MD Status:ADM IN Location: [place] [address] HPI - General General Date of Admission: [...] phosphatase 122 total protein 7.7, albumin 4.5 [facility] Medical History Strain of left foot [...] (Auto) 84.6 H, Lymph % (Auto) 7.3L, [place] % (Auto) 7.0, Eos % (Auto) 0.0, [...] Clarity Clear, Urine pH 6.0, Ur Specific [place] 1.010, Urine Protein 30 H, Urine Glucose [...] fatty infiltration of the liver. Reading Location: [facility] Assessment & Plan Assessment/Plan (1) Pancreatitis: PLAN: [...] - No concerns regarding exocrine insufficiency - [place] pain control with Tylenol and opioids - [...] Moncada MD; Dr. Abisai Haley MD~ Signed [facility]05-29-2025 Evaluation note* Diagnosis Onset Date Resolution Status Admit Date Hypokalemia acute April 26 5:13pm Intractable abdominal pain acute April 26, 2025 5:13pm Nausea & vomiting acute March 5:13pm Pancreatitis acute April 26 5:13pm [facility] Work Phone: 1(570) 422-804205-29-2025 Evaluation note* Diagnosis Onset Date Resolution Status Admit Date Hypokalemia inactive April 26 5:13pm Intractable abdominal pain inactive April 26, 2025 5:13pm Nausea & vomiting inactive March 5:13pm Pancreatitis inactive April 26 5:13pm Admitted to alcohol detoxification center acute May 25, 2025 12:33am [facility] Work Phone: 1(506) 497-373205-29-2025 Evaluation note* Diagnosis Onset Date Resolution Status [...] diabetes mellitus acute July 17, 2025 12:56pm [facility] Work Phone: 1(716) 285-477705-29-2025 Evaluation note* Diagnosis Onset Date Resolution Status Admit Date Hypokalemia inactive April 26 5:13pm Intractable abdominal pain inactive April 26, 2025 5:13pm Nausea & vomiting inactive March 5:13pm Pancreatitis inactive April 26 5:13pm Admitted to alcohol detoxification center inactive May 25, 2025 12:33am History of diabetes mellitus acute July 17, 2025 12:56pm Abdominal pain resolved June 12:56pm Acute alcoholic pancreatitis resolve d July 17, 2025 12:56pm LUI (acute kidney injury) acute August 12, 2025 12:43pm DKA (diabetic ketoacidoses) acute August 12, 2025 12:43pm Ketosis acute July 12:43pm Acute on chronic pancreatitis chroni c August 12, 2025 12:43pm [facility] Work Phone: 1(756) 452-422805-29-2025 Evaluation note* Diagnosis Onset Date Resolution Status Admit Date Hypokalemia inactive April 26 5:13pm Intractable abdominal pain inactive April 26, 2025 5:13pm Nausea & vomiting inactive March 5:13pm Pancreatitis inactive April 26 5:13pm Admitted to alcohol detoxification center inactive May 25, 2025 12:33am History of diabetes mellitus acute July 17, 2025 12:56pm Abdominal pain resolved June 12:56pm Acute alcoholic pancreatitis resolve d July 17, 2025 12:56pm LUI (acute kidney injury) acute August 12, 2025 12:43pm Bacteremia due to Gram-negative bacteria acute August 12, 2025 12:43pm DKA (diabetic ketoacidoses) acute August 12, 2025 12:43pm Ketosis acute July 12:43pm Acute on chronic pancreatitis chroni c August 12, 2025 12:43pm [facility] Work Phone: 1(276) 850-875005-29-2025 Discharge summary Author Humphrey [facility] Note Date/Time April 26, 2025 4:45p m [facility] Medical Records Department [address] [place] [address] Emergency Department Summary 04/26/25 MR#: [id number] Acct: [id number] Name: JOSEPH RINCON Rep #:[id number] : 1975 50 From: Humphrey Garcia DO [...] normal colored stool. Patient denies any [facility]contacts [facility] Medical History Strain of left foot [...] following commands knew that she was at [facility] the year is 2024 Skin: Warm, dry, [...] 84.6 H Lymph % (Auto) 7.3 L [place] % (Auto) 7.0 Eos % (Auto) 0.0 [...] Clarity Clear Urine pH 6.0 Ur Specific [place] 1.010 Urine Protein 30 H Urine Glucose [...] fatty infiltration of the liver. Reading Location: [id number] Discharge Plan Triage Chief Complaint: Abd Pain [...] MD [Primary Care Provider] - Print Language: Guamanian Disposition Disposition: Acute Care Hospital [facility] What to do if you have Problems For any increased pain, shortness of breath, bleeding, nausea or vomiting, chestpain, or any unexpected problems, contact your Primary Care Provider. Call [facility] ([phone]) or report to the closest Emergency Room. Call 911 if necessary. 04/26/25 1645 <Electronically signed by Humphrey Garcia DO> Cosigner Signature (if applicable): CC: Dr. Abisai Haley MD ~ Signed [facility] Work Phone: [phone] 398-641905-29-2025 Discharge summary [facility] Medical Records Department [address] [place] [address] Emergency Department Summary 04/26/25 MR#: [id number] Acct: [id number] Name: OJSEPH RINCON Rep #:[id number] : 1975 50 From: Humphrey Garcia DO [...] normal colored stool. Patient denies any recentcontacts [facility] Medical History Strain of left [...] following commands knew that she was at [facility] the year is 2024 Skin: Warm, dry, [...] 84.6 H Lymph % (Auto) 7.3 L [place] % (Auto) 7.0 Eos % (Auto) 0.0 [...] Clarity Clear Urine pH 6.0 Ur Specific [place] 1.010 Urine Protein 30 H Urine Glucose [...] fatty infiltration of the liver. Reading Location: [facility] Discharge Plan Triage Chief Complaint: Abd Pain [...] INHALATION BID pantoprazole 40 mg tablet,delayed release (/EC) 40 mg PO BID citalopram 40 mg [...] MD [Primary Care Provider] - Print Language: Guamanian Disposition Disposition: Acute Care Hospital [facility] What to do if you have Problems For any increased pain, shortness of breath, bleeding, nausea or vomiting, chestpain, or any unexpected problems, contact your Primary Care Provider. Call [facility] ([phone]) or report tothe closest Emergency Room. Call 911 if necessary. 04/26/25 1645 Cosigner Signature (if applicable): CC: Dr. Abisai Haley MD ~ Signed [facility]05-29-2025 Radiology Diagnostic study note [facility] Imaging Services [address] [place], [place] [address] Abdomen/Pelvis W IV Cont ONLY MR#: [id number] Acct: [id number] Name: JOSEPH RINCON Rep #: [id number] : 1975 F 50 From: Jhonny Roger MD PCP: Dr. Abisai Haley MD Status: REG ER Study:Abdomen/Pelvis W IV Cont ONLY Date of E xam: 04/26/25 Exam# [id number] Ordering Dr: Becky Garcia DO PROCEDURE: ABDOMEN/PELVIS [...] fatty infiltration of the liver. Reading Location: [id number] CC: Dr. Abisai Haley MD; Dr. Humphrey Garcia DO ~ Flavor Maker: Signed [facility]05-15-2025 Hospital Discharge instructions Additional Instructions Plenty of fluids and rest. Sleep on the main floor tonight. Due to fall risk. No driving for the next 24 hours. Use your Protonix at home for stomach discomfort due to the alcohol. Follow-up with your doctor if not improving or return if worse.[facility] Work Phone: [phone]) 132-471105-14-2025 Radiology Diagnostic study note [facility] Imaging Services [address] [place], [place] [address] Chest PA and Lateral MR#: [id number] Acct: [id number] Name: JOSEPH RINCON Rep #: [id number] : 1975 F 50 From: Jacque Martinez MD PCP: Dr. Abisai Haley MD Status: REG ER Study:Chest PA and Lateral Date of Exam: 04/11/25 Exam# [id number] Ordering Dr: Sheron Colon MD PROCEDURE: CHEST PA AND LATERAL 04/11/2025 REASON FOR EXAM: CHEST PAIN TECHNIQUE: Frontal and lateral views of the chest. COMPARISON: 04/04/2025 FINDINGS: Hardware: None Heart: The heart size is normal. Mediastinum: The mediastinal contour is unremarkable. Lungs: The lungs are clear. Bones: The bones are unremarkable. RAD/Chest PA and Lateral IMPRESSION: NO ACUTE FINDINGS. Reading Location[facility] CC: Dr. Abisai Haley MD; Dr. Francisco Colon MD ~ Flavor Maker: Signed [facility]05-07-2025 Discharge summary [facility] Medical Records Department [address] [place] [address] Emergency Department Summary 04/04/25 MR#: [id number] Acct: [id number] Name: JOSEPH RINCON Rep #:[id number] : 1975 50 From: Imani Ruelas PCP: [...] had intermittent hot flashes and then chills/sweats. [facility] Medical History Strain of left [...] tablet 40 mg PO DAILY #30 tabs 05/12/22 Unknown Rx albuterol sulfate 90 mcg/actuation 2 [...] 77.0 H Lymph % (Auto) 14.0 L [place] % (Auto) 7.8 Eos % (Auto) 0.2 [...] process is seen. Negative examination. Reading Location: [facility] Abdomen/Pelvis CT 04/04/25 12:02 IMPRESSION: 1. [...] 4. Additional description as above. Reading Location: [facility] Rhythm Strip Rhythm Strip: Sinus Tach Rate: [...] Staff - Active Staff] - Print Language: Guamanian Disposition Disposition: Home, Self Care What to do if you have Problems For any increased pain, shortness of breath, bleeding, nausea or vomiting, chestpain, or any unexpected problems, contact your Primary Care Provider. Call [facility] ([phone]) or report tothe closest Emergency Room. Call 911 if necessary. 04/04/25 1607 Cosigner Signature (if applicable): CC: Dr. Abisai Haley MD ~ Signed [facility]05-07-2025 Discharge summary Author Imani Knight [facility] Note Date/Time April 04, 2025 4:07pm [facility] Medical Records Department [address] [facility] [place] [address] Emergency Department Summary 04/04/25 MR#: [id number] Acct: [id number] Name: JOSEPH RINCON Rep #:[id number] : 1975 50 From: Imani Ruelas PCP: [...] had intermittent hot flashes and then chills/sweats. [facility] Medical History Strain of left [...] 77.0 H Lymph % (Auto) 14.0 L [place] % (Auto) 7.8 Eos % (Auto) 0.2 [...] is seen. Negative examination. Reading Location: [facility]1 Abdomen/Pelvis CT 04/04/25 12:02 IMPRESSION: 1. Correlate [...] 4. Additional description as above. Reading Location: [id number] Rhythm Strip Rhythm Strip: Sinus Tach Rate: [...] Staff - Active Staff] - Print Language: Guamanian Disposition Disposition: Home, Self Care What to do if you have Problems For any increased pain, shortness of breath, bleeding, nausea or vomiting, chestpain, or any unexpected problems, contact your Primary Care Provider. Call [facility] ([phone]) or report to the closest Emergency Room. Call 911 if necessary. 04/04/25 1607 <Electronically signed by Imani Knight DO> Cosigner Signature (if applicable): CC: Dr. Abisai Haley MD ~ Signed [facility] Work Phone: 1(870) 471-820405-07-2025 Radiology Diagnostic study note [facility] Imaging Services [address] [place] [address] Abdomen/Pelvis W IV Cont ONLY MR#: [id number] Acct: [id number] Name: JOSEPH RINCON Rep #: [id number] : 1975 F 50 From: Odalis Giraldo MD PCP: Dr. Abisai Haley MD Status: REG ER Study:Abdomen/Pelvis W IV Cont ONLY Date of E xam: 04/04/25 Exam# [id number] Ordering Dr: Selene Knight DO PROCEDURE: ABDOMEN/PELVIS [...] lobe airspace disease is new from prior, [id number] x 24 mm (series 2, image 11). [...] 4. Additional description as above. Reading Location: [facility] CC: Dr. Abisai Haley MD; Dr. Imani Knight DO ~ Flavor Maker: Signed [facility]05-07-2025 Radiology Diagnostic study note [facility] Imaging Services [address] [place], [place] [address] Chest 1 View (Portable) MR#: [id number] Acct: [id number] Name: JOSEPH RINCON Rep #: [id number] : 1975 F 50 From: Guido Valles MD PCP: Dr. Abisai Haley MD Status: REG ER Study:Chest 1 View (Portable) Date of Exam: 04/04/25 Exam# [id number] Ordering Dr: Selene Knight DO PROCEDURE: CHEST 1 VIEW (PORTABLE) 04/04/2025 REASON FOR EXAM: CHEST PAIN TECHNIQUE: Frontal view of the chest. COMPARISON: Chest x-ray 11/12/2024 RAD/Chest 1 View (Portable) IMPRESSION: Lungs appear clear throughout. No pleural effusion or pneumothorax is seen. The cardiomediastinal silhouette is stable, without evidence of cardiomegaly. No acute osseous process is seen. Negative examination. Reading Location: [place] [address] CC: Dr. Abisai Haley MD; Dr. Imani Knight DO ~ Flavor Maker: Signed [facility]05-25-2024 NoteHNO ID: [id number] Author: ARETHA SCHOFIELD APRN.ADMITTING COORDINATOR Service: ? Author Type: Nurse Practitioner Type: [...] drugs Objective Physical Exam (more content not included)...[facility]05-25-2024 Instructions * Patient Instructions* Aretha Schofield APRN.ADMITTING COORDINATOR - 04/22/2024 2:02 PM EDT ASSESSMENT/PLAN: 1. [...] Discussed expected course of illness Aretha Schofield APRN.ADMITTING COORDINATOR [facility] History of Present illness Narrative* Aretha Schofield APRN.ADMITTING COORDINATOR - 04/22/2024 1:56 PM EDT Subjective Sinus [...] Discussed expected course of illness Aretha Schofield APRN.ADMITTING COORDINATOR documented in this [facility]Day[facility]23 Discharge summary Author Caprice Jerry [facility] July 29, 2023 5:41pm Note Date/Time July 29, 2023 2: 37pm [facility] Medical Records Department [address] [place] [address] Emergency Department Summary 07/29/23 MR#: [id number] Acct: [id number] Name: JOSEPH RINCON Rep #:[id number] : 1975 48 From: Caprice Jerry MD PCP: Milana Garcia, DO Status:REG E R Location: ED HPI [...] time that did not show any disease. [facility] Medical History Acute lumbar myofascial [...] % (Auto) 63.7 Lymph % (Auto) 25.4 [place] % (Auto) 8.5 Eos % (Auto) 1.6 [...] Milana Garcia, DO [Primary Care Provider] - 1 Week Disposition Disposition: Home, Self Care What to do if you have Problems For any increased pain, shortness of breath, bleeding, nausea or vomiting, chestpain, or any unexpected problems, contact your Primary Care Provider. Call [facility] ([phone]) or report to the closest Emergency Room. Call 911 if necessary. 07/29/23 1741 <Electronically signed by Caprice Jerry MD> Cosigner Signature (if applicable): CC: Milana Garcia DO ~ Signed [facility] Work Phone: [phone]) 768-937006-27-[address] Jerry [facility] May 25, 2023 2:53am Note Date/Time May 24, 2023 11:2 0pm [facility] Medical Records Department [address] [place] [address] Emergency Department Summary 05/24/23 MR#: [id number] Acct: [id number] Name: JOSEPH RINCON Rep #:[id number] : 1975 48 From: Caprice Jerry MD [...] blood pressure. She just received a 14-day cardiac nurse practitioner in the mail that she will wear. [...] but there has never been seizures documented. [facility] Medical History Acute lumbar myofascial [...] 40.3 L Lymph % (Auto) 45.0 H [place] % (Auto) 11.4 H Eos % (Auto) [...] Color Urine Clarity Urine pH Ur Specific [place] Urine Protein Urine Glucose (UA) Urine Ketones [...] (Auto) Neut % (Auto) Lymph % (Auto) [place] % (Auto) Eos % (Auto) Baso % [...] Clarity Clear Urine pH 6.5 Ur Specific [place] 1.005 Urine Protein Negative Urine Glucose (UA) [...] Patient's had no significant arrhythmias noted on cardiac nurse practitioner throughout her ED stay. Portable chest x-ray [...] been worked up. She just got her cardiac nurse practitioner in the mail tonight to put on. [...] your Primary Care Provider. Call [facility] ([phone]) or report to the closest Emergency Room. Call 911 if necessary. 05/25/23 0253 <Electronically signed by Caprice Jerry MD> Cosigner Signature (if applicable): CC: Milana Garcia DO ~ Signed [facility] Work Phone: [phone]) 246-421306-07-[address] Dyer [facility] May 05, 2023 12:31am Note Date/Time May 04, 2023 10:36 pm [facility] Medical Records Department [address] [place] [address] Emergency Department Summary 05/04/23 MR#: [id number] Acct: [id number] Name: JOSEPH RINCON Rep #:[id number] : 1975 48 From: John Dyer DO [...] a cardiac cath 11/19/2022 which was normal. [facility] Medical History Acute lumbar myofascial [...] % (Auto) 51.3 Lymph % (Auto) 35.6 [place] % (Auto) 9.4 Eos % (Auto) 2.7 [...] 22:33 EDT Reading Location ID and State: [facility] [place] Tel , Service support , Brain CT [...] your Primary Care Provider. Call [facility] ([phone]) or report to the closest Emergency Room. Call 911 if necessary. 05/05/23 0031 <Electronically signed by John Dyer DO> Cosigner Signature (if applicable): CC: Milana Garcia DO ~ Signed [facility] Work Phone: 1(635) 660-543805-13-[address] Johnson [facility] April 10, 2023 3:15pm Note Date/Time April 10, 2023 3:15p [facility] Medical Records Department [address] [place] [address] Progress Note - Hospitalist 04/10/23 1511 MR#: [id number] Acct: [id number] Name: JOSEPH RINCON Rep #:[id number] : 1975 48 From: Radha Johnson DO PCP: Milana Garcia DO Status:ADM I N Location: [place] [address] Hospitalist Note Is a 48-year-old white female [...] some issues for her at baseline. 04/10/23 0775 <Electronically signed by Radha Johnson DO> Cosigner Signature (if applicable): CC: ~ Signed [facility] Work Phone: [phone]) 803-496205-13-[address] Jacobs [facility] April 10, 2023 7:13am Note Date/Time April 09, 2023 11:06 pm [facility] Medical Records Department [address] [place] [address] Emergency Department Summary 04/09/23 MR#: [id number] Acct: [id number] Name: JOSEPH RINCON Rep #:[id number] : 1975 48 From: David Ruelas PCP: Milana Garcia DO Status:ADM I N Location: [place] [address] HPI History of Present Illness Chief Complaint: [...] TAD Risk Factors: Negative for Hypertension [facility] Medical History Acute lumbar myofascial strain [...] 85.1 H Lymph % (Auto) 11.3 L [place] % (Auto) 1.6 Eos % (Auto) 0.4 [...] Color Urine Clarity Urine pH Ur Specific [place] Urine Protein Urine Glucose (UA) Urine Ketones [...] (Auto) Neut % (Auto) Lymph % (Auto) [place] % (Auto) Eos % (Auto) Baso % [...] Clarity Clear Urine pH 6.5 Ur Specific [place] 1.010 Urine Protein Negative Urine Glucose (UA) [...] (Auto) Neut % (Auto) Lymph % (Auto) [place] % (Auto) Eos % (Auto) Baso % [...] Color Urine Clarity Urine pH Ur Specific [place] Urine Protein Urine Glucose (UA) Urine Ketones [...] sinus rhythm with a rate of 86. CA interval, QRS interval, and QTc intervals were all normal. [place] was normal. There are no acute ST [...] (42), Including time spent:, Discussing w/Patient &/or Family/Community Development Director, Discussing w/Consultants, Arranging Admission or Transfer and Performing Direct Patient Care at Bedside Discharge Plan Dx/Rx/DC Orders Clinical Impression: High anion gap metabolic acidosis, Hypotension, Lactic acidosis Disposition Disposition: [facility] Discharge Date/Time: 04/10/23 03:28 What to do if you have Problems For any increased pain, shortness of breath, bleeding, nausea or vomiting, chestpain, or any unexpected problems, contact your Primary Care Provider. Call [facility] ([phone]) or report to the closest Emergency Room. Call 911 if necessary. 04/10/23712 <Electronically signed by David Jacobs DO> Cosigner Signature (if applicable): CC: Milana Garcia DO ~ Signed [facility] Work Phone: 1(200) 512-270205-13-2023 History and physical note Author Dr. Kiran [facility] April 10, 2023 5:36am Note Date/Time April 10, 2023 1:28a [facility] Medical Records Department [address] [place] [address] H&P Exam - Hospitalist 04/10/23 0128 MR#: [id number] Acct: [id number] Name: JOSEPH RINCON Rep #:[id number] : 1975 48 From: Young Kiran MD PCP: Milana Garcia DO Status:ADM I N Location: [place] [id number]- 1 HPI - General General Date of [...] before presentation patient had multiple loose stools. [facility] Medical History Acute lumbar myofascial strain [...] cranial nerves II through XII grossly intact. Houston- Hallpike maneuver to the right was positive [...] 85.1 H, Lymph % (Auto) 11.3 L, [place] % (Auto) 1.6, Eos % (Auto) 0.4, [...] ABG results: ABG 04/10/23 00:13 Specimen Type GELAICO VBG pH 7.29 L VBG pO2 54 [...] Lovenox ordered. Charges/Coding Visit Charges Inpatient E&M: 16212 Init Hosp L3 04/10/23 0536 <Electronically signed by Young Kiran MD> Cosigner Signature (if applicable): CC: Dr. Young iKran MD; Milana Garcia DO~ Signed [facility] Work Phone: 1(665) 474-884204-24-[address] Gaviria [facility] March 22, 2023 10:43pm Note Date/Time March 22, 2023 7:0 6pm [facility] Medical Records Department [address] [place] [address] Emergency Department Summary 03/22/23 MR#: [id number] Acct: [id number] Name: JOSEPH RINCON Rep #:[id number] : 1975 47 From: Lauri Gaviria MD [...] Prior similar symptoms: No Recent Illness/Hospitalization: [facility] Medical History Acute lumbar myofascial strain [...] % (Auto) 64.4 Lymph % (Auto) 22.7 [place] % (Auto) 9.9 Eos % (Auto) 2.0 [...] Color Urine Clarity Urine pH Ur Specific [place] Urine Protein Urine Glucose (UA) Urine Ketones Urine Occult Blood Urine Nitrite Urine Bilirubin Urine Urobilinogen Ur Leukocyte Esterase Urine RBC Urine WBC Ur Squamous Epith Cells Amorphous Sediment Urine Bacteria Urine Mucus 03/22/23 20:20 WBC RBC Hgb Hct MCV MCH MCHC RDW Std Deviation RDW Coeff of Braxton Plt Count MPV Immature Gran % (Auto) Neut % (Auto) Lymph % (Auto) [place] % (Auto) Eos % (Auto) Baso % [...] Sl. Cloudy Urine pH 6.5 Ur Specific [place] 1.005 Urine Protein Negative Urine Glucose (UA) [...] (Rate is 68 and EKG is normal. CA interval is 130 ms. Cures duration 86 ms. QT duration 408 ms. [place] is normal.) Treatment and Re-Evaluation :: Patient [...] your Primary Care Provider. Call [facility] ([phone]) or report to the closest Emergency Room. Call 911 if necessary. 03/22/232242 <Electronically signed by Lauri Gaviria MD> Cosigner Signature (if applicable): CC: Milana Garcia DO ~ Signed [facility] Work Phone: 1([phone]) 157-282204-24-2023 Hospital Discharge instructions Additional Instructions Call your doctor in the morning to have repeat blood work in 3 to 5 days. Let them know that your creatinine is elevated.[facility] Work Phone: [phone]) 134-260410-09-2022 Hospital Discharge instructions Additional Instructions Plenty of fluids and rest. No alcohol for the next 48 hours. No driving for the next 24 hours. Follow-up with your primary care physician. They can get an EEG to further evaluate you for possible seizures. Your labs and CAT scan tonight were unremarkable other than your alcohol level that was 237.[facility] Work Phone: [phone]) 242-348808-23-2022 Instructions* Patient Instructions* Samantha Deleon APRN.[facility] - 07/21/2022 7:38 PM EDT SCIATICA: Your [...] bladder or bowel control. documented in this encounterDayton [facility]08-23-2022 History of Present illness Narrative* Sabrina [...] 21, 2022 7:16 PM documented in this encounterDayton [facility]08-23-2022 History of Present illness Narrative* Samantha Deleon, ESTHETICIAN/OWNER.ADMITTING COORDINATOR - 07/21/2022 7:10 PM EDT This note was created using lensgenriter. 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 The history is provided by the patient. No furnace filler was used. Musculoskeletal Problem This is a [...] Flexeril Follow up with PCP Samantha Deleon APRN.ADMITTING COORDINATOR documented in this encounterDayton [facility]08-19-2019 History of Past illness Narrative* Problem [...] of this encounter (statuses as of 07/21/2022) [facility] Author Sho Leyva [facility] Note Date/Time May 28, 2025 2:19 pm [facility] Medical Records Department [address] [place] [address] Counseling Note - Pharmacy 05/28/25 1332 MR#: [id number] Acct: [id number] Name: JOSEPH RINCON Rep #:[id number] : 1975 50 From: Sho Leyva PCP: Dr. Abisai Haley MD Status:ADM [place] Location: [address] Med Reconciliation Pharmacy Service has performed discharge [...] by Sho Leyva> Date _ Sho Leyva Cosigner Signature (if applicable): Date CC: ~ Signed [facility] Work Phone: Discharge summary Author Dr. Johnson [facility] April 11, 2023 9:49am Note Date/Time April 11, 2023 9:39a [facility] Medical Records Department [address] [place] [address] Discharge Summary 04/11/23 0936 MR#: [id number] Acct: [id number] Name: JOSEPH RINCON Rep #:[id number] : 1975 48 From: Radha Johnson DO PCP: Milana Garcia DO Status:ADM I N Location: [place] [address] Providers Date of Admission: 04/10/23 Date of [...] % (Auto) 67.1, Lymph % (Auto) 23.8, [place] % (Auto) 7.8, Eos % (Auto) 0.7, [...] 11:21 EDT Reading Location ID and State: [facility] / [place] Tel , Service support , D/C Instructions [...] Self Care Charges/Coding Visit Charges Inpatient E&M: 51193 Disch Hosp >30min 04/11/23 0949 <Electronically signed by Radha Johnson DO> Cosigner Signature (if applicable): CC: Dr. Radha Johnson DO; Milana Garcia DO~ Signed [facility] Work Phone: Discharge summary Author Mao Becker [facility] Note Date/Time May 06, 2025 1:22p taisha [facility] Medical Records Department [address] [place] [address] Instructions for Home/Discharge Instructions 05/06/25 1312 MR#: [id number] Acct: [id number] Name: JOSEPH RINCON Rep #:[id number] : 1975 50 From: Mao Becker DO [...] MD; Dr. Canelo Myers MD ~ Signed [facility] Work Phone: Discharge summary Author Mao [facility] Note Date/Time May 28, 2025 1:16 pm [facility] Medical Records Department [address] [place] [address] Discharge Summary 05/28/25 1313 MR#: [id number] Acct: [id number] Name: JOSEPH RINCON Rep #:[id number] : 1975 50 From: Mao Becker DO PCP: Dr. Abisai Haley MD Status:ADM IN Location: [facility] BG684-2 Providers Date of Admission: 05/25/25 Date of Discharge: 05/28/25 Primary Care Physician: Abisai Haley MD Reason For Visit: ETOH DETOXIFICATION, WITHDRAWL Diagnosis Discharge Diagnosis (1) Admitted to alcohol detoxification center: Status: Acute Plan 1. Acute alcohol withdrawal-patient will remain on her present medications, addiction manager social media will talk with the patient #2 hypomagnesemia-magnesium [...] was seen in the emergency room at [facility] desiring services for alcohol detox. She had been admitted previously only several weeks ago for pancreatitis and alcohol withdrawal and had already gone through the program at that time. Her toxicology screen was positive for barbiturates and benzodiazepines, but alcohol level was 312. Patient was admitted to [facility], orders were entered using the alcohol detox order set and she was seen by addiction manager social media. Patient had minimal withdrawal symptoms to hospitalization [...] Self Care Charges/Coding Visit Charges Inpatient E&M: 99490 Disch Hosp >30min 05/28/25 1316 <Electronically signed by Mao Becker DO> Cosigner Signature (if applicable): CC: Dr. Abisai Haley MD; Dr. Mao Becker DO~ Signed [facility] Work Phone: Discharge summary Author Canelo Myers [facility] Note Date/Time July 20, 2025 2: 48pm [facility] Medical Records Department [address] [place] [address] Discharge Summary 07/20/25 1442 MR#: [id number] Acct: [id number] Name: JOSEPH RINCON Rep #:[id number] : 1975 50 From: Canelo Myers MD PCP: Dr. Abisai Haley MD Status:ADM IN Location: [facility] FW301-0 Providers Date of Admission: 07/17/25 Date of [...] % (Auto) 66.7, Lymph % (Auto) 19.5, [place] % (Auto) 11.8 H, Eos % (Auto) 1.6, Baso % (Auto) 0.2, AbsoluteNeuts (auto) 2.8, Absolute Lymphs (auto) 0.83, Nucleated RBC % 0, Sodium 140, Potassium 3.6, Chloride 103, Carbon Dioxide 27.0, Anion Gap 10, BUN 4, Creatinine 0.40 L, Estim Creat Clear Calc 148.53, Est GFR (MDRD) Non-Af 122, BUN/Creatinine Ratio 10.1, Glucose 107 H, Calcium 7.6, Total Bilirubin 0.86, OGJ649 H, ALT 114 H, Alkaline Phosphatase 134 [...] Self Care Charges/Coding Visit Charges Inpatient E&M: 05433 Disch Hosp >30min 07/20/25 1448 <Electronically signed by Canelo Myers MD> Cosigner Signature (if applicable): CC: Dr. Abisai Haley MD; Dr. Canelo Myers MD~ Signed [facility] Work Phone: Discharge summary Author Wellington Rader [facility] Note Date/Time August 12, 2025 1:00pm [facility] Medical Records Department [address] [place] [address] Emergency Department Summary 08/12/25 MR#: [id number] Acct: [id number] Name: JIMBOLUKEJOSEPH L Rep #:[id number] : 1975 50 From: Wellington Rader MD PCP: Dr. Abisai Haley MD Status:REG ER Location: ED HPI HPI - GI History of Present Illness Chief Complaint: Alt LOC Informant: patient Narrative Narrative: 50-year-old female presenting with continuous vomiting over the past 24 hours. She states this started with a sore throat, that became worse and she has been having some gagging, as well as vomiting and lots of nausea that she thinks is causing the majority of the vomiting, not necessarily the gagging although that is contributing. She denies any significant cough but she has felt a little short of breath when ambulating. No abdominal pain except for some soreness in her upper abdomen that she feels like is muscular from all the vomiting which came later. No hematemesis. No diarrhea. Never bright red blood per rectum ormelena. No fevers or chills. No known sick contacts. [facility] Medical History Admitted to alcohol detoxification [...] mg tablet 500 ea PO BID DIABETES 10/3108/11/25 History aspirin 81 mg chewable tablet 81 mg PO DAILY@0800 #30 tabs 11/19/22 08/11/25 Rx bupropion HCl 150 mg 24 hr tablet, 150 mg PO DAILY 08/11/25 History extended release montelukast 10 mg tablet 10 mg PO DAILY 04/09/2307/30 History (Singulair) pantoprazole 40 mg tablet,delayed 40 mg PO BID 3 08/11/25 History release cholecalciferol (vitamin D3) 50 50 mcg PO DAILY 08/11/25 History mcg (2,000 unit) capsule albuterol sulfate 90 mcg/actuation 2 puff inhalation Q 6H PRN 04/27/24 08/12/25 Rx aerosol inhaler shortness of breath or wheez ing #8.5 grams empagliflozin 25 mg tablet 25 mg PO DAILY 11/12/24 History (Jardiance) metoprolol succinate 25 mg 25 mg PO DAILY 11/12/24 History tablet,extended release 24 hr amlodipine 5 mg tablet 5 mg PO DAILY 04/04/2508/11 History buspirone 5 mg tablet 5 mg PO TID PRN anxiety 06/2208/11/25 History hydroxyzine HCl 10 mg tablet 10 mg PO TID PRN PRN anxi ety 04/04/25 Unknown History levocetirizine 5 mg tablet 5 mg PO DAILY 04/11/2507/30 History lisinopril 40 mg tablet 40 mg PO DAILY 04/11/2507/30 History budesonide-formoterol HFA 160 2 puff inhalation BID SO B 04/26/25 08/11/25 History mcg-4.5 mcg/actuation aerosol inhaler glimepiride 4 mg tablet 4 mg PO DAILY #30 tabs 05/0608/11/25 Rx atorvastatin 40 mg tablet 40 mg PO QHS 07/17/25 History fluoxetine 40 mg capsule 40 mg PO DAILY 07/17/2507/30 History lorazepam 1 mg tablet 1 mg PO BID 08/12/25 5 History naltrexone 50 mg tablet 50 mg PO DAILY 08/12/2507/30 History Allergy/AdvReac Type Severity Reaction Status Date / Time No Known Allergies Allergy Verified 08/12/25 08:21 Family History Grandfather CVA (cerebral vascular accident) [...] ROS ROS ED Constitutional Constitutional ED: Reports anorexia, fatigue, malaise and weight loss; Denies chills or fever(s) Eyes Eyes: Denies change in vision or diplopia ENT ENT ED: Reports sore throat; Denies ear pain or rhinorrhea Cardiovascular Cardiovascular: Denies chest pain or palpitations Respiratory/Chest Respiratory/Chest: Reports dyspnea on exertion; Denies cough Gastrointestinal Gastrointestinal: Reports abdominal pain, nausea and vomiting; Denies diarrhea, hematemesis, hematochezia or melena Genitourinary Genitourinary ED: Denies dysuria or hematuria Musculoskeletal Musculoskeletal: Denies back pain or neck pain Integumentary Denies abscess or rash Neurologic Neurologic: Denies headache(s), paresthesias or weakness Psychiatric Psychiatric: Denies suicidal thoughts EXAM Physical Exam Const Vital Signs: 08/12/25 08:19 08/12/25 10:19 08/12/25 12:00 Temperature 97.9 F Temperature Source Oral Pulse Rate 130 H 64 120 H Respiratory Rate 18 18 18 Blood Pressure 129/85 H 127/78 H 156/70 H Blood Pressure Mean 99 94 98 Pulse Ox 92 98 92 Oxygen Delivery Method Room Air Room Air Room Air Oxygen Flow Rate (L/min) 08/12/25 12:42 08/12/25 12:50 08/12/25 12:51 Temperature 98.3 F Temperature Source Pulse Rate 118 H 115 H 115 H Respiratory Rate 14 16 17 Blood Pressure 161/85 H Blood Pressure Mean 110 Pulse Ox 92 90 95 Oxygen Delivery Method Room Air Nasal Cannula Oxygen Flow Rate (L/min) 2 Positive well nourished and well developed General Appearance ED: well developed and NAD HEENT Reports moist mucous membranes HEENT Narrative: Diffuse posterior oropharyngeal and soft palatal erythema along with what appears to be mild uvulitis. There is no asymmetry or tonsillar exudates/edema. No trismus. Tongue is normal. Normal voice, no distress, no stridor. normocephalic and atraumatic Eyes PERRL and EOMs intact bilaterally Neck full ROM, no lymphadenopathy and supple Resp normal respiratory effort and clear to auscultation bilaterally Cardio regular rate, regular rhythm and no murmurs GI non-distended GI Narrative: Tender in epigastrium, patient thinks it is a muscle soreness. No guarding or rebound or other areas of tenderness. Auscultation: normoactive bowel sounds Palpation: soft Back/Spine no CVA tenderness General Back: other FROM Extremity normal to inspection General Extremety ED: Negative for edema, pulses abnormal or tenderness General Extremity: Negative for edema or pulses abnormal Neuro oriented x3, CN's II-XII intact bilaterally and no sensory deficits noted Sensorium / Orientation: awake and alert Motor Exam: strength 5/5 throughout Skin no rashes or lesions noted and no wounds MDM MDM MDM Narrative Medical decision making narrative: Labs concerning for LUI and acute pancreatitis. Her liver enzymes are elevated as well, but her total bilirubin is normal suggesting this is not biliary obstruction that is causing this. I reviewed some old ER/hospital records, 3 weeks ago she was admitted for alcoholic pancreatitis. Asked her about her alcohol use. She states since then, she has gotten into [facility] for outpatient rehab, and she has stopped drinking, her last drink was the week before last. Here after Zofran and Reglan she still is having some occasional vomiting feeling very nauseated. Her posterior pharynx is very erythematous, and now my suspicion is that instead of the primary cause of her vomiting, it is probably secondary to much of it. She was given IV fluids, her chloride is down at 73, and her bicarb low at 17, contributing to her anion gap of 48. Therefore she may have alcoholic ketoacidosis as well. I did an ABG first, and interestingly it is not even showing an acidosis, rather it is showing what appears to be an acute respiratory alkalosis. Her lactic and back normal, and her ketones returned extremely high, suggesting maybe she has a mixed respiratory alkalosis and metabolic acidosis and could still very well be an AKA. Her history is consistent with this, when I talked her further she states that when she was drinking alcohol, she was drinking very heavily, and not eating much and she hasbarely eaten anything in the last 1-2 weeks and she stopped drinking alcohol, she is basically just drinking fluids. 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 However, when I spoke with the patient about all of this, she states this does not feel like the pancreatitis that she has had in the past, so I thought better to obtain the CT to see if it is consistentwith acute pancreatitis or not. This was done, I reviewed the images and the report which I agree with and it is consistent with acute pancreatitis and thereis no evidence of a pseudocyst or other complication at this time or other acuteabnormality. Alcoholic ketoacidosis would explain her vomiting and why she feels different than when she had acute pancreatitis that was the main cause of her vomiting before. She is a type II diabetic and although type II DKA is in the differential, I think that is less likely here. Her blood sugar was 300 we willcontinue to monitor that and admit her to the hospital discussed with hospitalist. Dr. Tucker evaluated the patient in ED, and thinks that this is more likely to be DKA rather than AKA, and request that we discontinue the D5 half-normal saline and instead give 2 L of normal saline, and he will admit to ICU and begin insulin drip after the IV fluids. History & Record Review Additional record(s) reviewed:: Prior inpatient record Lab Data Attestation: I reviewed the patient's lab results. Labs: Laboratory Results - last 24 hr 08/12/25 08/12/25 08:32 10:47 WBC 11.8 H RBC 4.05 L Hgb 14.1 Hct 41.3 MCV 102.0 H MCH 34.8 H MCHC 34.1 RDW Std Deviation 50.9 H RDW Coeff of Braxton 13.6 Plt Count 181 MPV 10.1 Neut % (Auto) Not Reportable Absolute Neuts (auto) 10.3 H Absolute Lymphs (auto) 1.18 Total Counted 100 Neutrophils % (Manual) 87 H Lymphocytes % (Manual) 10 L Monocytes % (Manual) 3 Platelet Estimate ADEQUATE RBC Morphology NORM C+C Sodium 139 Potassium 3.1 L Chloride 73 L* Carbon Dioxide 17.4 L Anion Gap 48 H BUN 20 H Creatinine 1.82 H Est GFR (MDRD) Non-Af 34 L BUN/Creatinine Ratio 10.8 Glucose 300 H Lactic Acid 1.7 Calcium 9.2 Total Bilirubin 1.22 AST 408 H ALT 108 H Alkaline Phosphatase 135 H Total Protein 8.3 Albumin 4.6 Globulin 3.6 Albumin/Globulin Ratio 1.3 Lipase 1130 H b-Hydroxybutyric mmol/L 14.0 H Serum , Qual NEGATIVE ABG Data ABG results: ABG 08/12/25 08/12/25 10:58 12:45 Specimen Type ART GELACIO Sample Site Not entered Not entered pH 7.56 H Bicarbonate Actual 22.2 Total CO2 23 Base Excess 0 O2 Saturation 95 ABG pCO2 24.6 L ABG pO2 63 L VBG pH 7.49 H VBG pO2 52 H VBG HCO3 25 VBG Total CO2 26 VBG O2 Sat (Calc) 90 H VBG Base Excess 2 POC Mix VBG pCO2 Pt Tmp 32.2 L O2 Delivery Device Not entered Not entered Vent Mode Not entered Radiography Diagnostic Testing: Clinical Impression(s) from Imaging Studies Abdomen/Pelvis CT 08/12/25 10:43 IMPRESSION: Fatty liver. Pancreatitis without phlegmon or pseudocyst. Reading Location: [id number] Management Discussion w/another healthcare provider: Hospitalist Critical Care Time Critical Care Time: Yes Critical care time (excluding procedures): 30-74 minutes (41 min), Including time spent:, Discussing w/Patient &/or Family/Community Development Director, Discussing w/Consultants, Arranging Admission or Transfer and Performing Direct Patient Care at Bedside Discharge Plan Dx/Rx/DC Orders Clinical Impression: Acute on chronic pancreatitis, LUI (acute kidney injury), Hyperglycemia due to type 2 diabetes mellitus, Ketosis Disposition Disposition: Acute Care Hospital [facility] What to do if you have Problems For any increased pain, shortness of breath, bleeding, nausea or vomiting, chestpain, or any unexpected problems, contact your Primary Care Provider. Call [facility] ([phone]) or report to the closest Emergency Room. Call 911 if necessary. 08/12/25 1300 <Electronically signed by Wellington Rader MD> Cosigner Signature (if applicable): CC: Dr. Abisai Haley MD ~ Signed [facility] Work Phone: Evaluation noteNo assessment information available [facility] Work Phone: Evaluation note* Diagnosis Hip pain, acute, left- [facility] Diagnosis Onset Date Resolution Status Bilateral acute otitis media acute [facility] Work Phone: Evaluation note* Diagnosis Onset Date Resolution Status Acute lumbar myofascial strain acute Strain of left hip acute Acute bronchitis acute ACS (acute coronary syndrome) acute Hypertensive urgency acute Hypertriglyceridemia acute Non-ST elevated myocardial infarction acute Hypertension chronic Type 2 diabetes mellitus [facility] Work Phone: Evaluation note* Diagnosis Onset Date Resolution Status Acute lumbar myofascial strain acute Strain of left hip acute Acute bronchitis acute ACS (acute coronary syndrome) acute Hypertensive urgency acute Hypertriglyceridemia acute Non-ST elevated myocardial infarction acute HTN (hypertension) chronic Type 2 diabetes mellitus [facility] Work Phone: Evaluation note* Diagnosis Onset Date Resolution Status Acute bronchitis acute [facility] Work Phone: Evaluation note* Diagnosis Onset Date Resolution Status Acute bronchitis acute High anion gap metabolic acidosis acute Hypotension acute Lactic acidosis acute Vertigo acute Type 2 diabetes mellitus [facility] Work Phone: Evaluation note* Diagnosis Onset Date Resolution Status Acute bronchitis acute High anion gap metabolic acidosis resolved Hypotension resolved Lactic acidosis resolved Vertigo resolved [facility] Work Phone: Evaluation note* Diagnosis Onset Date Resolution Status Acute bronchitis acute High anion gap metabolic acidosis resolved Hypotension resolved Lactic acidosis resolved Vertigo resolved Hypertriglyceridemia acute Palpitations acute Syncope and collapse acute HTN (hypertension) chronic Tobacco use disorder [facility] Work Phone: Evaluation note* Diagnosis Onset Date Resolution Status High anion gap metabolic acidosis resolved Hypotension resolved Lactic acidosis resolved Vertigo resolved Hypertriglyceridemia acute Palpitations acute Syncope and collapse acute HTN (hypertension) chronic Tobacco use disorder chronic Acute sinusitis acute [facility] Work Phone: Evaluation note* Diagnosis Onset Date Resolution Status Hypertriglyceridemia acute Palpitations acute Syncope and collapse acute HTN (hypertension) chronic Tobacco use disorder chronic Acute sinusitis acute [facility] Work Phone: Evaluation note* Diagnosis Onset Date Resolution Status Hypertriglyceridemia acute Palpitations acute Syncope and collapse acute HTN (hypertension) chronic Tobacco use disorder chronic Acute sinusitis acute Hypertriglyceridemia acute Palpitations acute HTN (hypertension) chronic Tobacco use disorder chronic [facility] Work Phone: Evaluation note* Diagnosis Onset Date Resolution Status Acute sinusitis acute Hypertriglyceridemia acute Palpitations acute HTN (hypertension) chronic Tobacco use disorder chronic Contact with or exposure to other viral diseases acute URI (upper respiratory infection) acute [facility] Work Phone: Evaluation note* Diagnosis Onset Date Resolution Status Plantar fasciitis of left foot acute Strain of left foot acute [facility] Work Phone: Evaluation note* Diagnosis Sinus congestion- Primary Other diseases of nasal cavity and sinuses Wheezing Nausea Nausea alone [facility] Insomnia- Primary Insomnia, unspecified [...] pain, acute, left [facility] Myra Null [facility] Note Date/Time May 25, 2025 1:54 am [facility] Medical Records Department [address] [place] [address] H&P Exam - Hospitalist 05/25/25 0037 MR#: [id number] Acct: [id number] Name: JOSEPH RINCON Rep #:[id number] : 1975 50 From: Myra Null MD [...] (>1/5 vodka daily) who presents to the [facility] ED on 05/25/25 with history of requesting [...] 1, Zofran 4 mg IV x 1. [facility] Medical History Pancreatitis Hypokalemia Nausea & vomiting [...] (>1/5 vodka daily) who presents to the [facility] ED on 05/25/25 with history of requesting [...] admission presentation. Charges/Coding Visit Charges Inpatient E&M: 91931 Init Hosp L3 05/25/25 0154 <Electronically signed by Myra Null MD> Cosigner Signature (if applicable): CC: Dr. Myra Null MD; Dr. Abisai Haley MD~ Signed [facility] Work Phone: Hospital Discharge instructions Additional Instructions Please follow-up with your PCP and pain management. Return for worsening of symptoms.[facility] Work Phone: Reason for referral (narrative)* Diagnostic Procedure Only (Urgent) - Pending Review Specialty Diagnoses / Procedures Referred By Contac t Referred To Contact XR IMAGING Diagnoses Hip pain, acute, left Procedures XR HIP GENERAL 3V PELV/AP/LAT LEFT RADEX HIP UNILATERAL WITH PELVIS 2-3 VIEWS Samantha Deleon APRN.CNP [address] [place] [address] Xr Imaging Referral ID Status Reason Start Date Expiration Date Visits Requested Visits Authorized [id number] Pending Review Auto-Generat ed Referral 07/21/2022 08/20/2023 1 1 [facility] for referral (narrative)* Diagnostic Procedure Only (Urgent) - Closed Specialty Diagnoses / Procedures Referred By Contac t Referred To Contact XR IMAGING Diagnoses Hip pain, acute, left Procedures XR HIP GENERAL 3V PELV/AP/LAT LEFT RADEX HIP UNILATERAL WITH PELVIS 2-3 VIEWS Samantha Deleon APRN.ADMITTING COORDINATOR [address] [place] [address] [place] [address] Referral ID Status Reason Start Date Expiration Date V isits Requested Visits Authorized [id number] Closed Auto-Generate d Referral 07/21/2022 08/20/2023 1 1 [facility] for referral (narrative)No reason for referral information [facility] Work Phone: Reason for visit Narrative* Diagnostic Procedure Only (Urgent) - Closed Specialty Diagnoses / Procedures Referred By Contac t Referred To Contact XR IMAGING Diagnoses Hip pain, acute, left Procedures XR HIP GENERAL 3V PELV/AP/LAT LEFT RADEX HIP UNILATERAL WITH PELVIS 2-3 VIEWS Samantha Deleon APRN.CNP [address] [place] [address] [place] [address] Referral ID Status Reason Start Date Expiration Date V isits Requested Visits Authorized [id number] Closed Auto-Generate d Referral 07/21/2022 08/20/2023 1 1 [facility] Summary Purpose Family History No Family [...] No February 22, 2022 12:30pm Power of Leach Runner No February 22 12:30pm Advance Directive Response Recorded Date/ Time Advance Directives No February 23 8:55am Living Will No September 05 9:14pm Power of Leach Runner No September 05 9:14pm Advance Directive Response Recorded Date/ Time Advance Directives No February 23 7:55am Living Will No November 18 1:54pm Power of Leach Runner No November 18, 2022 1:54pm Advance Directive Response Recorded Date/ Time Advance Directives No February 23 7:55am Living Will No January 21 12:06pm Power of Leach Runner No January 21, 2023 12:06pm Advance Directive Response Recorded Date/ Time Advance Directives No February 23 8:55am Living Will No March 22, 2023 6:38pm Power of Leach Runner No March 22 6:38pm Advance Directive Response Recorded Date/ Time Advance Directives No February 23 8:55am Living Will No April 09, 2023 1 0:50pm Power of Leach Runner No April 09, 2023 10:50pm Advance Directive Response Recorded Date/ Time Advance Directives No February 23 8:55am Living Will No April 10, 2023 3 :53am Power of Leach Runner No April 10, 2023 3:53am Advance Directive Response Recorded Date/ Time Advance Directives No February 23 8:55am Living Will No May 04, 2023 9 :16pm Power of Leach Runner No May 04, 2023 9:16pm Advance Directive Response Recorded Date/ Time Advance Directives No February 23 8:55am Living Will No May 24, 2023 9:36pm Power of Leach Runner No May 24 9:36pm Advance Directive Response Recorded Date/ Time Advance Directives No February 23 8:55am Living Will No July 29 2:27pm Power of Leach Runner No July 29 2:27pm Advance Directive Response Recorded Date/ Time Advance Directives No February 23 8:55am Living Will No August 23, 2023 12:07pm Power of Leach Runner No July 12:07pm Advance Directive Response Recorded Date/ Time Advance Directives No February 23 7:55am Living Will No October 10 4:19pm Power of Leach Runner No October 10, 2023 4:19pm Advance Directive Response Recorded Date/ Time Advance Directives No February 23 8:55am Living Will No January 24 5:38pm Power of Leach Runner No January 24, 2024 5:38pm Advance Directive Response Recorded Date/ Time Do you have a Healthcare Power of Leach Runner? No April 04, 2025 11:50am Advance Directives No July 2:01pm Advance Directive Response Recorded Date/ Time Do you have a Healthcare Power of Leach Runner? No April 11, 2025 10:12pm Do you have a Healthcare Power of Leach Runner? No April 04, 2025 11:50am Advance Directives No July 2:01pm Advance Directive Response Recorded Date/ Time Do you have a Healthcare Power of Leach Runner? No April 11, 2025 10:12pm Do you have a Healthcare Power of Leach Runner? No April 04, 2025 11:50am Do you have a Healthcare Power of Leach Runner? No April 26, 2025 1:50pm Advance Directives No July 2:01pm Advance Directive Response Recorded Date/ Time Do you have a Healthcare Power of Leach Runner? No April 11, 2025 10:12pm Do you have a Healthcare Power of Leach Runner? No April 04, 2025 11:50am Do you have a Healthcare Power of Leach Runner? No April 26, 2025 6:15pm Advance Directives No July 2:01pm Advance Directive Response Recorded Date/ Time Do you have a Healthcare Power of Leach Runner? No April 11, 2025 10:12pm Do you have a Healthcare Power of Leach Runner? No April 04, 2025 11:50am Do you have a Healthcare Power of Leach Runner? No April 26, 2025 6:15pm Do you have a Healthcare Power of Leach Runner? No May 24, 2025 11:48pm Advance Directives No July 2:01pm Advance Directive Response Recorded Date/ Time Do you have a Healthcare Power of Leach Runner? No April 11, 2025 10:12pm Do you have a Healthcare Power of Leach Runner? No April 04, 2025 11:50am Do you have a Healthcare Power of Leach Runner? No April 26, 2025 6:15pm Do you have a Healthcare Power of Leach Runner? No May 25, 2025 2:53am Advance Directives No July 2:01pm Advance Directive Response Recorded Date/ Time Do you have a Healthcare Power of Leach Runner? No April 11, 2025 10:12pm Do you have a Healthcare Power of Leach Runner? No July 17, 2025 10:29am Do you have a Healthcare Power of Leach Runner? No April 04, 2025 11:50am Do you have a Healthcare Power of Leach Runner? No April 26, 2025 6:15pm Do you have a Healthcare Power of Leach Runner? No May 25, 2025 2:53am Advance Directives No July 2:01pm Advance Directive Response Recorded Date/ Time Do you have a Healthcare Power of Leach Runner? No April 11, 2025 10:12pm Do you have a Healthcare Power of Leach Runner? No July 17, 2025 1:34pm Do you have a Healthcare Power of Leach Runner? No April 04, 2025 11:50am Do you have a Healthcare Power of Leach Runner? No April 26, 2025 6:15pm Do you have a Healthcare Power of Leach Runner? No May 25, 2025 2:53am Advance Directives No July 2:01pm Advance Directive Response Recorded Date/ Time Do you have a Healthcare Power of Leach Runner? No July 17, 2025 1:34pm Do you have a Healthcare Power of Leach Runner? No August 12, 2025 8:21am Do you have a Healthcare Power of Leach Runner? No April 26, 2025 6:15pm Do you have a Healthcare Power of Leach Runner? No May 25, 2025 2:53am Advance Directives No July 2:01pm Advance Directive Response Recorded Date/ Time Do you have a Healthcare Power of Leach Runner? No July 17, 2025 1:34pm Do you have a Healthcare Power of Leach Runner? No August 12, 2025 1:20pm Do you have a Healthcare Power of Leach Runner? No April 26, 2025 6:15pm Do you have a Healthcare Power of Leach Runner? No May 25, 2025 2:53am Advance Directives [...] 2025 5:13p m [facility], 2025 12:33am Chief Complaint Admit [...] 2025 5:13p m [facility] May 25, 2025 12:33am Abdominal pain July [...] ALCOHOLIC INTOXICATI ON July 20, 2025 7:31am Chief Complaint Admit Date ACUTE PANCREATITIS April 26, 2025 5:13p m [...] ALCOHOLIC INTOXICATI ON July 20, 2025 7:31am DKA August 12, 2025 12:43pm Reason for Visit Admit Date Hypokalemia April 26, 2025 5:13p m Intractable abdominal pain April 26 5:13pm Nausea & vomiting April 26, 2025 5:13p m Pancreatitis April 26, 2025 5:13p m [facility] May 25, 2025 12:33am History of diabetes mellitus June 12:56pm Abdominal pain July 17, 2025 12 :56pm Acute alcoholic pancreatitis June 12:56pm LUI (acute kidney injury) July 12:43pm DKA (diabetic ketoacidoses) August 122024 12:43pm Ketosis August 12, 2025 12:43pm Acute on chronic pancreatitis August 12, 2025 12:43pm Chief Complaint Admit Date ACUTE PANCREATITIS April 26, 2025 5:13p m [...] ALCOHOLIC INTOXICATI ON July 20, 2025 7:31am DKA August 12, 2025 12:43pm DKA August 12, 2025 1:02pm DKA August 13, 2025 8:23am DKA August 14, 2025 2:00pm DKA August 15, 2025 2:55pm Reason for Visit Admit Date Hypokalemia April 26, 2025 5:13p m Intractable abdominal pain May 29th, 202 5 5:13pm Nausea & vomiting April 26, 2025 5:13p m Pancreatitis April 26, 2025 5:13p m Admitted to alcohol detoxification [facility] May 25, 2025 12:33am History of diabetes mellitus June 12:56pm Abdominal pain July 17, 2025 12 :56pm Acute alcoholic pancreatitis June 12:56pm LUI (acute kidney injury) July 12:43pm Bacteremia due to Gram-negative bacteria August 12, 2025 12:43pm DKA (diabetic ketoacidoses) August 122024 12:43pm Ketosis August 12, 2025 12:43pm Acute on chronic pancreatitis August 12, 2025 12:43pm Additional Source Comments <item> Privacy Markings (unrecogniz ed section and content) Section Author: Yenifer Bowman PROHIBITION ON REDISCLOSURE OF CONFIDENTIAL INFORMATION This notice accompanies a disclosure of information concerning a client made to you with the consent of such client. INFORMATION SOURCE (unrecogn ized section and content) DATE CREATED AUTHOR 06/16/2021 [facility] DATE CREATED AUTHOR AUTHOR'S ORGANIZ ATION 04/24/[address] [facility] DATE CREATED AUTHOR AUTHOR'S ORGANIZ ATION 08/23/2025 [facility] Goals (unrecognized section and content) [...] or prosecute any alcohol or drug abuse patient.[facility] the event this information is protected by the Federal Confidentiality of Alcohol and Drug Abuse Patient Records regulations: The Federal rules restrict any use of the information to criminally investigate or prosecute any alcohol or drug abuse patient.[facility] the event this information is protected by the Federal Confidentiality of Alcohol and Drug Abuse Patient Records regulations: The Federal rules restrict any use of the information to criminally investigate or prosecute any alcohol or drug abuse patient.[facility] Reason for Visit (unrecogniz ed section and content) Reason Comments left hip pain X 3 days-cannot reca ll an injury Reason Comments Sinus Problem Nasal congestion, dr garland slight sore throat, nausea, cough, wheezing x 1 day Care Teams (unrecognized sec tion and content) Utilization Management Nurse Relationship Specialty Start Date End Date Ihsan [...] Primary Care Provider, Referring Provider Active Cassandra SMITH, PA Attending Provider Active Team Status: Active [...] Care Provider, Referring Provider Active Jim Manriquez GREEN HIDE INSPECTOR, GREEN HIDE INSPECTOR-C Attending Provider Active Team Status: Inactive Member [...] Jose , DO Primary Care Provider Active Jim Manriquez GREEN HIDE INSPECTOR, GREEN HIDE INSPECTOR-C Attending Provider, Referring P ty Active Team Status: Inactive Member Role Status Dates Milanagillian Garcia , DO Primary Care Provi elena, Attending Provider, Referring Provider Active Team Status: Inactive Member Role Status Dates Milanagillian Garcia , DO Primary Care Provider Active Rober Concepcion MD Emergency Provider Active Team Status: Inactive Member Role Status Dates Milana Garcia , DO Primary Care Provider Active Rober Concepcion MD Attending Provider, Emergency Provid er Active Team Status: Inactive Member Role Status Dates Milana Garcia , DO Primary Care Provider Active Dr. Julio Wesley MD Attending Provider, Referring Provider Active Jim Manriquez GREEN HIDE INSPECTOR, GREEN HIDE INSPECTOR-C Other Provider Active Team Status: Inactive Member [...] Dr. Jose Taylor MD Attending Provider Active Utilization Management Nurse Relationship Specialty Start Date End Date LaurenIhsan gonzalez DO PCP - General Family Medicine 10/22/20 Utilization Management Nurse Relationship Specialty Start Date End Date LaurenIhsan DO PCP - General Family Medicine 10/22/20 [...] Provider Active Start: April 27, 2025 Dr. Cnaelo Myers MD Other Provider Active Star t: [...] Status: Active Member Role Status Dates Abisai aHley MD Primary Care Provider Active St art: [...] St art: May 01, 2025 Dr. Julius Moncaad MD Other Provider Active St art: May [...] Active Start: May 04, 2025 Dr. Julius oMncada MD Admit Provider Active St art: May [...] St art: May 27, 2025 Dr. Andrew Klusty-Staci , DO Emergency Provider Activ e Start: May 27, 2025 Dr. Myra Null MD Admit Provider Active St art: May 27, 2025 Dr. Myra Null MD Other Provider Active St art: May 27, 2025 Dr. Mao Becker , Attending Provider Active Start: May 27, 2025 Dr. Mao Becker , Other Provider Active S tart: May 27, [...] Start: May 28, 2025 Dr. Mao Becker , Other Provider Active S tart: May 28, [...] Provider Active Star t: July 20, 2025 Team Status: Inactive Member Role/Relationship Status [...] Active St art: May 02, 2025 Dr. aCnelo Myers MD Attending Provider Active Start: May [...] art: May 04, 2025 Dr. Humphrey Garcia , Emergency Provider Active Start: May 04, 2025 [...] End: May 28, 2025 Dr. Andrew Maurice , Emergency Provider Activ e Start: May 25, [...] art: May 25, 2025 Dr. Andrew Maurice , DO Emergency Provider Activ e Start: May [...] S tart: May 28, 2025 Team Status: Inactive Member Role/Relationship Status [...] Provider Active Star t: July 20, 2025 Team Status: Active Member Role/Relationship Status Dates Abisai Haley MD Primary Care Provider Active St art: August 12, 2025 Dr. Wellington Rader MD Emergency Provider Active Start: August 12, 2025 Dr. Zev Tucker MD Admit Provider Active Sta rt: August 12, 2025 Dr. Zev Tucker MD Attending Provider Active Start: August 12, 2025 Team Status: Active Member Role/Relationship Status Dates Abisai Haley MD Primary care physician Active Team Status: Inactive Member Role/Relationship Status Dates Abisai Haley MD Primary care physician Active S tart: April 26, 2025 End: May 06, 2025 Dr. Humphrey Garcia DO Referring Provider Active Start: April 26, 2025 End: May 06, 2025 Dr. Humphrey Garcia DO Emergency Department Physician A ctive Start: April 26, 2025 End: May 06, 2025 Dr. Julius Moncada MD Admitting physician Active Start: April 26, 2025 End: May 06, 2025 Dr. Julius Moncada MD Nurse Practitioner Active Start: April 26, 2025 End: May 06, 2025 Dr. Mao Becker DO Attending physician Active Start: April 26, 2025 End: May 06, 2025 Dr. Canelo Myers MD Nurse Practitioner Active Start: April 26, 2025 End: May 06, 2025 Team Status: Active Member Role/Relationship Status Dates Abisai Haley MD Primary care physician Active S tart: April 26, 2025 Dr. Humphrey Garcia DO Emergency Department Physician A ctive Start: April 26, 2025 Dr. Julius Moncada MD Admitting physician Active Start: April 26, 2025 Dr. Julius Moncada MD Attending physician Active Start: April 26, 2025 Dr. Julius Moncada MD Nurse Practitioner Active Start: April 26, 2025 Team Status: Active Member Role/Relationship Status Dates Abisai Haley MD Primary care physician Active S tart: April 27, 2025 Dr. Humphrey Garcia DO Emergency Department Physician A ctive Start: April 27, 2025 Dr. Julius Moncada MD Admitting physician Active Start: April 27, 2025 Dr. Julius Moncada MD Nurse Practitioner Active Start: April 27, 2025 Dr. Canelo Myers MD Attending physician Active Start: April 27, 2025 Dr. Canelo Myers MD Nurse Practitioner Active Start: April 27, 2025 Team Status: Active Member Role/Relationship Status Dates Abisai Haley MD Primary care physician Active S tart: April 28, 2025 Dr. Humphrey Garcia DO Emergency Department Physician A ctive Start: April 28, 2025 Dr. Julius Moncada MD Admitting physician Active Start: April 28, 2025 Dr. Julius Moncada MD Nurse Practitioner Active Start: April 28, 2025 Dr. Canelo Myers MD Attending physician Active Start: April 28, 2025 Dr. Canelo Myers MD Nurse Practitioner Active Start: April 28, 2025 Team Status: Active Member Role/Relationship Status Dates Abisai Haley MD Primary care physician Active S tart: April 29, 2025 Dr. Humphrey Garcia DO Emergency Department Physician A ctive Start: April 29, 2025 Dr. Julius Moncada MD Admitting physician Active Start: April 29, 2025 Dr. Julius Moncada MD Nurse Practitioner Active Start: April 29, 2025 Dr. Canelo Myers MD Attending physician Active Start: April 29, 2025 Dr. Canelo Myers MD Nurse Practitioner Active Start: April 29, 2025 Team Status: Active Member Role/Relationship Status Dates Abisai Haley MD Primary care physician Active S tart: April 30, 2025 Dr. Humphrey Garcia DO Emergency Department Physician A ctive Start: April 30, 2025 Dr. Julius Moncada MD Admitting physician Active Start: April 30, 2025 Dr. Julius Moncada MD Nurse Practitioner Active Start: April 30, 2025 Dr. Canelo Myers MD Attending physician Active Start: April 30, 2025 Dr. Canelo Myers MD Nurse Practitioner Active Start: April 30, 2025 Team Status: Active Member Role/Relationship Status Dates Abisai Haley MD Primary care physician Active S tart: May 01, 2025 Dr. Humphrey Garcia DO Emergency Department Physician A ctive Start: May 01, 2025 Dr. Julius Moncada MD Admitting physician Active Start: May 01, 2025 Dr. Julius Moncada MD Nurse Practitioner Active Start: May 01, 2025 Dr. Canelo Myers MD Attending physician Active Start: May 01, 2025 Dr. Canelo Myers MD Nurse Practitioner Active Start: May 01, 2025 Team Status: Active Member Role/Relationship Status Dates Abisai Haley MD Primary care physician Active S tart: May 02, 2025 Dr. Humphrey Garcia DO Emergency Department Physician A ctive Start: May 02, 2025 Dr. Julius Moncada MD Admitting physician Active Start: May 02, 2025 Dr. Julius Moncada MD Nurse Practitioner Active Start: May 02, 2025 Dr. Canelo Myers MD Attending physician Active Start: May 02, 2025 Dr. Canelo Myers MD Nurse Practitioner Active Start: May 02, 2025 Team Status: Active Member Role/Relationship Status Dates Abisai Haley MD Primary care physician Active S tart: May 03, 2025 Dr. Humphrey Garcia DO Emergency Department Physician A ctive Start: May 03, 2025 Dr. Julius Moncada MD Admitting physician Active Start: May 03, 2025 Dr. Julius Moncada MD Nurse Practitioner Active Start: May 03, 2025 Dr. Canelo Myers MD Attending physician Active Start: May 03, 2025 Dr. Canelo Myers MD Nurse Practitioner Active Start: May 03, 2025 Team Status: Active Member Role/Relationship Status Dates Abisai Haley MD Primary care physician Active S tart: May 04, 2025 Dr. Humphrey Garcia DO Emergency Department Physician A ctive Start: May 04, 2025 Dr. Julius Moncada MD Admitting physician Active Start: May 04, 2025 Dr. Julius Moncada MD Nurse Practitioner Active Start: May 04, 2025 Dr. Canelo Myers MD Attending physician Active Start: May 04, 2025 Dr. Canelo Myers MD Nurse Practitioner Active Start: May 04, 2025 Team Status: Active Member Role/Relationship Status Dates Abisai Haley MD Primary care physician Active S tart: May 05, 2025 Dr. Humphrey Garcia DO Emergency Department Physician A ctive Start: May 05, 2025 Dr. Julius Monacda MD Admitting physician Active Start: May 05, 2025 Dr. Julius Moncada MD Nurse Practitioner Active Start: May 05, 2025 Dr. Mao Becker DO Attending physician Active Start: May 05, 2025 Dr. Mao Becker DO Nurse Practitioner Active Start: May 05, 2025 Dr. Canelo Myers MD Nurse Practitioner Active Start: May 05, 2025 Team Status: Active Member Role/Relationship Status Dates Abisai Haley MD Primary care physician Active S tart: May 06, 2025 Dr. Humphrey Garcia DO Emergency Department Physician A ctive Start: May 06, 2025 Dr. Julius Moncada MD Admitting physician Active Start: May 06, 2025 Dr. Julius Moncada MD Nurse Practitioner Active Start: May 06, 2025 Dr. Mao Becker DO Attending physician Active Start: May 06, 2025 Dr. Mao Becker DO Nurse Practitioner Active Start: May 06, 2025 Dr. Canelo Myers MD Nurse Practitioner Active Start: May 06, 2025 Team Status: Inactive Member Role/Relationship Status Dates Abisai Haley MD Primary care physician Active S tart: May 25, 2025 End: May 28, 2025 Dr. Andrew Maurice DO Emergency Department Physician Active Start: May 25, 2025 End: May 28, 2025 Dr. Myra Null MD Admitting physician Active Start: May 25, 2025 End: May 28, 2025 Dr. Myra Null MD Nurse Practitioner Active Start: May 25, 2025 End: May 28, 2025 Dr. Mao Becker DO Attending physician Active Start: May 25, 2025 End: May 28, 2025 Team Status: Active Member Role/Relationship Status Dates Abisai Haley MD Primary care physician Active S tart: May 25, 2025 Dr. Andrew Maurice DO Emergency Department Physician Active Start: May 25, 2025 Dr. Myra Null MD Attending physician Active Start: May 25, 2025 Team Status: Active Member Role/Relationship Status Dates Abisai Haley MD Primary care physician Active S tart: May 26, 2025 Dr. Andrew Maurice DO Emergency Department Physician Active Start: May 26, 2025 Dr. Myra Null MD Admitting physician Active Start: May 26, 2025 Dr. Myra Null MD Nurse Practitioner Active Start: May 26, 2025 Dr. Mao Becker DO Attending physician Active Start: May 26, 2025 Dr. Mao Becker DO Nurse Practitioner Active Start: May 26, 2025 Team Status: Active Member Role/Relationship Status Dates Abisai Haley MD Primary care physician Active S tart: May 27, 2025 Dr. Andrew Maurice DO Emergency Department Physician Active Start: May 27, 2025 Dr. Myra Null MD Admitting physician Active Start: May 27, 2025 Dr. Myra Null MD Nurse Practitioner Active Start: May 27, 2025 Dr. Mao Becker DO Attending physician Active Start: May 27, 2025 Dr. Mao Becker DO Nurse Practitioner Active Start: May 27, 2025 Team Status: Active Member Role/Relationship Status Dates Abisai Haley MD Primary care physician Active S tart: May 28, 2025 Dr. Andrew Maurice DO Emergency Department Physician Active Start: May 28, 2025 Dr. Myra Null MD Admitting physician Active Start: May 28, 2025 Dr. Myra Null MD Nurse Practitioner Active Start: May 28, 2025 Dr. Mao Becker DO Attending physician Active Start: May 28, 2025 Dr. Mao Becker DO Nurse Practitioner Active Start: May 28, 2025 Team Status: Inactive Member Role/Relationship Status Dates Abisai Haley MD Primary care physician Active S tart: July 17, 2025 End: July 20, 2025 Dr. Francisco Colon MD Emergency Department Physician Ac tive Start: July 17, 2025 End: July 20, 2025 Dr. Canelo Myers MD Admitting physician Active Start: July 17, 2025 End: July 20, 2025 Dr. Canelo Myers MD Attending physician Active Start: July 17, 2025 End: July 20, 2025 Team Status: Active Member Role/Relationship Status Giovanna Haley MD Primary care physician Active S tart: July 17, 2025 Dr. Francisco Colon MD Emergency Department Physician Ac tive Start: July 17, 2025 Dr. Canelo Myers MD Admitting physician Active Start: July 17, 2025 Dr. Canelo Myers MD Attending physician Active Start: July 17, 2025 Dr. Canelo Myers MD Nurse Practitioner Active Start: July 17, 2025 Team Status: Active Member Role/Relationship Status Giovanna Haley MD Primary care physician Active S tart: July 18, 2025 Dr. Francisco Colon MD Emergency Department Physician Ac tive Start: July 18, 2025 Dr. Canelo Myers MD Admitting physician Active Start: July 18, 2025 Dr. Canelo Myers MD Attending physician Active Start: July 18, 2025 Dr. Canelo Myers MD Nurse Practitioner Active Start: July 18, 2025 Team Status: Active Member Role/Relationship Status Giovanna Haley MD Primary care physician Active S tart: July 19, 2025 Dr. Francisco Colon MD Emergency Department Physician Ac tive Start: July 19, 2025 Dr. Canelo Myers MD Admitting physician Active Start: July 19, 2025 Dr. Canelo Myers MD Attending physician Active Start: July 19, 2025 Dr. Canelo Myers MD Nurse Practitioner Active Start: July 19, 2025 Team Status: Active Member Role/Relationship Status Giovanna Haley MD Primary care physician Active S tart: July 20, 2025 Dr. Francisco Colon MD Emergency Department Physician Ac tive Start: July 20, 2025 Dr. Canelo Myers MD Admitting physician Active Start: July 20, 2025 Dr. Canelo Myers MD Attending physician Active Start: July 20, 2025 Dr. Canelo Myers MD Nurse Practitioner Active Start: July 20, 2025 Team Status: Inactive Member Role/Relationship Status Giovanna Haley MD Primary care physician Active S tart: August 12, 2025 End: August 15, 2025 Dr. Wellington Rader MD Emergency Depart ment Physician Active Start: August 12, 2025 End: August 15, 2025 Dr. Zev Tucker MD Admitting physician Active Start: August 12, 2025 End: August 15, 2025 Dr. Zev Tucker MD Attending physician Active Start: August 12, 2025 End: August 15, 2025 Dr. Praful Olivo MD Nurse Practitioner Active Start: August 12, 2025 End: August 15, 2025 Team Status: Active Member Role/Relationship Status Dates Abisai Haley MD Primary care physician Active S tart: August 12, 2025 Dr. Wellington Rader MD Emergency Depart ment Physician Active Start: August 12, 2025 Dr. Zev Tucker MD Admitting physician Active Start: August 12, 2025 Dr. Zev Tucker MD Attending physician Active Start: August 12, 2025 Dr. Zev Tucker MD Nurse Practitioner Active Start: August 12, 2025 Team Status: Active Member Role/Relationship Status Dates Abisai Haley MD Primary care physician Active S tart: August 13, 2025 Dr. Wellington Rader MD Emergency Depart ment Physician Active Start: August 13, 2025 Dr. Zev Tucker MD Admitting physician Active Start: August 13, 2025 Dr. Zev Tucker MD Attending physician Active Start: August 13, 2025 Dr. Zev Tucker MD Nurse Practitioner Active Start: August 13, 2025 Team Status: Active Member Role/Relationship Status Dates Abisai Haley MD Primary care physician Active S tart: August 14, 2025 Dr. Wellington Rader MD Emergency Depart ment Physician Active Start: August 14, 2025 Dr. Zev Tucker MD Admitting physician Active Start: August 14, 2025 Dr. Zev Tucker MD Attending physician Active Start: August 14, 2025 Dr. Zev Tucker MD Nurse Practitioner Active Start: August 14, 2025 Dr. Praful Olivo MD Nurse Practitioner Active Start: August 14, 2025 Team Status: Active Member Role/Relationship Status Dates Abisai Haley MD Primary care physician Active S tart: August 15, 2025 Dr. Wellington Rader MD Emergency Depart ment Physician Active Start: August 15, 2025 Dr. Zev Tucker MD Admitting physician Active Start: August 15, 2025 Dr. Zev Tucker MD Attending physician Active Start: August 15, 2025 Dr. Zev Tucker MD Nurse Practitioner Active Start: August 15, 2025 Dr. Praful Olivo MD Nurse Practitioner Active Start: August 15, 2025 FOR RECORDS PERTAINING TO PATIENTS WHO [...] BE BASED ON THE PRIMARY CLINICAL RECORDS. [employer] provides no warranty or guarantee of the accuracy or completeness of information in this document.
--- NOTE | 2025-11-03 08:50 | CT_ITS ---
PROCEDURE: ABDOMEN/PELVIS WITH CONTRAST 11/03/2025 REASON FOR EXAM: LEFT SIDED ABD/FLANK PAIN, CHRONIC PANCREATITIS TECHNIQUE: Procedure Code: [id number] Modality: CT Procedure: ABDOMEN/PELVIS WITH CONTRAST Coronal and Sagittal reconstruction series were provided. CONTRAST: 100 cc of Isovue 370 One or more dose reduction techniques were used (e.g., Automated exposure control, adjustment of the mA and/or kV according to patient size, use of iterative reconstruction technique. COMPARISON: CT abdomen and pelvis 08/12/2020 FINDINGS: Lung bases: Unremarkable. Liver: Enlarged measuring 18.5 cm craniocaudally. Moderate diffuse hepatic steatosis. No obvious hepatic mass. Gallbladder: Surgically absent. No biliary ductal dilatation. Spleen: Normal size. Pancreas: Slightly increased inflammatory changes adjacent to the tail of the pancreas consistent with ongoing pancreatitis. No evidence of pseudocyst formation or necrosis. Adrenals: Unremarkable. Kidneys: Normal renal sizes. No hydronephrosis. Bladder: Underdistended, limiting evaluation. Reproductive Organs: Normal uterine size and contour. Ovaries are unremarkable. Bowel: No bowel obstruction. No inflammatory changes. Appendix: The appendix is not identified. There is no inflammatory process identified in the right lower quadrant to suggest appendicitis. Lymph nodes: Unremarkable. Vasculature: Diffuse atherosclerotic calcifications. No aneurysm. Peritoneum / Retroperitoneum: No free fluid or air. Bones: Unremarkable. No acute fractures. CT/Abdomen/Pelvis WITH Contrast IMPRESSION: 1. Slightly increased inflammatory changes involving the pancreatic tail compat ible with persistent pancreatitis. No evidence of necrosis or pseudocyst formation. 2. Hepatomegaly and moderate diffuse hepatic steatosis. Reading [facility]
[2025-11-03 08:59] LABS: Lipase 209 U/L (13-75)
[2025-11-03 09:04] LABS: AST(SGOT) 305 U/L (<=31); Alanine Aminotransfer ALT/SGPT 404 U/L (<=34); Albumin, Serum 3.7 g/dL (3.5-5.0); Alkaline Phosphatase 168 U/L (35-104); Anion Gap 15 (5-15); BUN 13 mg/dL (4-19); BUN/Creat Ratio 21.7 RATIO (10-20); Calcium,Total 7.9 mg/dL (7.6-11.0); Carbon Dioxide 30.6 mmol/L (21.0-32.0); Chloride 92 mmol/L (98-108); Estimated Creatinine Clearance 96.89 ml/min (50-250); Globulin 3.3 g/dL (2.2-4.2); Glucose 226 mg/dL (70-99); Potassium 2.6 mmol/L (3.3-5.1)
[2025-11-03 09:11] LABS: Prothrombin Time (Protime)PT. 13.3 SECONDS (11.7-14.9)
[2025-11-03] MEDS: 0.9% Normal Saline (1000mL) 1,000 ML 999 ML IV (09:17)
[2025-11-03] MEDS: Potassium Chloride 10mEq/100mL 10 MEQ/100 ML IV.SOLN. 100 MEQ IV BOLUS (09:52)
[2025-11-03 09:59] LABS: Mucous, Urine 0 SEEN /hpf (<or=2+); Red Blood Cells-Urine 0 SEEN /hpf (0-5); Squamous Epithelial Cells - UA 0 SEEN /hpf (5-10)
[2025-11-03 10:01] LABS: Color, Urine Yellow (Yellow); Glucose, Dipstick 100 mg/dl (Normal); Ketone-Dipstick Negative (Negative); Leukocyte Esterase-Dipstick Negative /ul (Negative); Nitrite-Dipstick Negative (Negative); Occult Blood-Urine Negative /ul (Negative); Protein-Dipstick 30 mg/dl (Negative); Specific Gravity, Urine 1.005 (1.002-1.030); Urine Bilirubin Dipstick Negative (Negative)
[2025-11-03 10:06] VITALS: BP 151/81; PULSE 90; RESP 13; O2SAT 96
[2025-11-03 12:00] VITALS: BP 142/91; PULSE 81; RESP 14; O2SAT 96
[2025-11-03 13:23] VITALS: BP 127/85; PULSE 85; RESP 19; TEMP 36.7; O2SAT 96
[2025-11-03 13:57] VITALS: BP 141/97
--- NOTE | 2025-11-03 14:03 | ED.RN ---
Offered to Pt to do meds to bed for prescriptions and pain meds. Pt refused.
[2025-11-06 04:07] LABS: HEPATITIS B SURFACE AG Negative (Negative); Hep C Antibodies Non Reactive (Non Reactive)
== END 2025-11-03 14:04 | disposition home or self-care (01) ==
PROVIDERS: Emergency Provider Emergency Medicine; PCP Family Medicine; Visit Provider Emergency Medicine
DX: R10.A2 Flank pain, left side (principal); K86.1 Other chronic pancreatitis; J44.9 Chronic obstructive pulmonary disease, unspecified; E11.9 Type 2 diabetes mellitus without complications; E87.6 Hypokalemia; M54.9 Dorsalgia, unspecified; I10 Essential (primary) hypertension; R74.8 Abnormal levels of other serum enzymes; F17.200 Nicotine dependence, unspecified, uncomplicated; R05.9 Cough, unspecified; Z90.49 Acquired absence of other specified parts of digestive tract; I25.2 Old myocardial infarction; Z99.89 Dependence on other enabling machines and devices
CPT/HCPCS: 74177; 80053; 80074; 81001; 83690; 84703; 85025; 85610; 96361; 96374; 96375; 96376; 99283; Q9967; A4216; J2405

== ENCOUNTER 2025-11-16 19:59 | Emergency (ER) | payer MEDICAID, SELFPAY ==
[2025-11-16 20:00] VITALS: BP 167/84; PULSE 124; RESP 16; TEMP 36.6; O2SAT 98; BMI 20.9
--- NOTE | 2025-11-16 20:57 | ED.VIS.GI ---
HPI HPI - GI History of Present Illness Chief Complaint: Abd Pain Informant: patient and spouse/S.O. Abdominal Pain/Flank Pain Onset: Weeks Context: Gradual Onset Timing: Continuous Location: Left Flank Current Severity: Moderate Maximum Severity: Moderate Worsened by: Nothing Relieved by: Nothing Nausea/Vomiting/Emesis GI Symptom: Positive for Nausea Onset: Days Severity: Mild Diarrhea/Melena/Hematochezia GI Symptom: Negative for Diarrhea, Melena or Hematochezia Associated Symptoms Associated Symptoms: Negative for Dysuria, Frequency, Hematuria or Urgency Narrative Narrative: 42-year-old female history of pancreatitis, COPD, diabetes and hypertension. Prior cholecystectomy. States she has had left flank pain for 2 weeks. Comes and goes but is better this morning and worse tonight. Associated nausea no vomiting. No fever. She was mildly constipated now is having loose stools. No melena. Denies any trauma. No fever. No dysuria. Recent workup including CAT scan was unremarkable. Prior similar symptoms: Yes Recent Illness/Hospitalization: No PFSH PFS Medical History Admitted to alcohol detoxification center Pancreatitis Hypokalemia Nausea & vomiting Intractable abdominal pain Strain of left foot Plantar fasciitis of left foot Acute otitis media, right Contact with or exposure to other viral diseases URI (upper respiratory infection) Alcohol abuse GERD (gastroesophageal reflux disease) CPAP (continuous positive airway pressure) dependence Smoker COPD (chronic obstructive pulmonary disease) Myocardial infarct Seizures History of left heart catheterization (LHC) (~11/19/22) Sleep apnea Pancreatitis Acute lumbar myofascial strain Strain of left hip Depression Anxiety Diabetes HTN (hypertension) Type 2 diabetes mellitus Home Medications ?Medication ?Instructions ?Recorded ?Last Taken ?Type metformin 500 mg tablet 500 ea PO BID DIABETES 10/31/22 11/02/25 History aspirin 81 mg chewable tablet 81 mg PO DAILY@0800 heart health 11/19/22 11/02/25 Rx #30 tabs bupropion HCl 150 mg 24 hr tablet, 150 mg PO DAILY mental health 01/21/23 11/02/25 History extended release montelukast 10 mg tablet 10 mg PO DAILY allergies 04/09/23 11/02/25 History (Singulair) cholecalciferol (vitamin D3) 50 50 mcg PO DAILY vitamin 08/25/23 11/02/25 History mcg (2,000 unit) capsule empagliflozin 25 mg tablet 25 mg PO DAILY diabetes 11/12/24 11/02/25 History (Jardiance) metoprolol succinate 25 mg 25 mg PO DAILY blood pressure 11/12/24 11/02/25 History tablet,extended release 24 hr amlodipine 5 mg tablet 5 mg PO DAILY blood pressure 04/04/25 11/02/25 History buspirone 5 mg tablet 5 mg PO TID PRN anxiety 04/04/25 11/02/25 History hydroxyzine HCl 10 mg tablet 10 mg PO Q8H PRN anxiety 04/04/25 11/02/25 History levocetirizine 5 mg tablet 5 mg PO DAILY allergies 04/11/25 11/02/25 History lisinopril 40 mg tablet 40 mg PO DAILY blood pressure 04/11/25 11/02/25 History budesonide-formoterol HFA 160 2 puff inhalation BID SOB 04/26/25 11/02/25 History mcg-4.5 mcg/actuation aerosol inhaler atorvastatin 40 mg tablet 40 mg PO QHS cholesterol 07/17/25 11/02/25 History fluoxetine 40 mg capsule 40 mg PO DAILY mental health 07/17/25 11/02/25 History lorazepam 1 mg tablet 1 mg PO BID PRN anxiety 08/12/25 08/11/25 History naltrexone 50 mg tablet 50 mg PO DAILY prevent drug use 08/12/25 08/11/25 History pantoprazole 40 mg tablet,delayed 40 mg PO DAILY 30 days #30 tabs 08/15/25 11/02/25 Rx release hydrocodone-acetaminophen 5-325mg 1 tab PO Q6H PRN PRN Pain 3 days 11/03/25 Unknown Rx 5mg-325mg #12 TABLETS hyoscyamine sulfate 0.125 mg 0.25 mg (2 x 0.125 mg) sublingual 11/03/25 Unknown Rx sublingual tablet Q6H PRN abominal discomfort #12 tabs ondansetron 8 mg disintegrating 8 mg PO Q8H PRN nausea and 11/03/25 Unknown Rx tablet vomiting #12 tabs potassium chloride 20 mEq 20 meq PO BID #10 tabs 11/03/25 Unknown Rx tablet,extended release (K-Tab) oxycodone-acetaminophen 5 mg-325 1 tab PO Q8H PRN pain 3 days #7 11/16/25 Unknown Rx mg tablet (Percocet) tabs potassium chloride 20 mEq 20 meq PO TID #20 tabs 11/16/25 Unknown Rx tablet,extended release(part/cryst) Allergy/AdvReac Type Severity Reaction Status Date / Time No Known Allergies Allergy Verified 11/16/25 20:02 Family History Grandfather CVA (cerebral vascular accident) Diabetes Mother Cancer Father Hypertension Grandmother Hypertension Diabetes Surgical History History of cholecystectomy H/O tooth extraction plantar fasciitis release Social History household members: spouse and children housing: house pets and animals: Yes Smoking Status: Light Smoker (<10/day) alcohol intake: current alcohol intake frequency: 3 or more drinks per day Alcohol type: hard liquor details: At least 1/5 vodka daily, recently increased EtOH intake. substance use type: does not use ROS ROS ED ROS Narrative Left flank abdominal pain. Nausea. Constitutional Constitutional ED: Denies chills or fever(s) ENT ENT ED: Denies ear pain Cardiovascular Cardiovascular: Denies chest pain Respiratory/Chest Respiratory/Chest: Denies cough or dyspnea Gastrointestinal Gastrointestinal: Reports abdominal pain and nausea; Denies diarrhea, melena or vomiting Genitourinary Genitourinary ED: Denies dysuria or hematuria Musculoskeletal Musculoskeletal: Denies arthralgias Integumentary Denies abscess Neurologic Neurologic: Denies headache(s) Psychiatric Psychiatric: Denies anxiety Endocrine Endocrinology: Denies polydipsia Hematologic/Lymphatic Hematologic/Lymphatic: Denies easy bleeding Allergic/Immunologic Allergic/Immunologic ED: Denies mouth swelling, tongue swelling or urticaria EXAM Physical Exam Narrative Exam Narrative: 50-year-old female vital signs stable afebrile. Is complaining of left flank pain. H EENT exam pupils round react light. Moist mucous membranes. Neck nontender no lymphadenopathy. Back nontender. No CVA tenderness. No signs of trauma or bruising. Lungs clear to auscultation bilaterally. Heart tachycardic 110 no murmur. Chest wall ribs nontender. No signs of trauma. No ecchymosis bruising or subcu air. Abdomen soft nondistended normal bowel sounds without peritoneal signs. Left upper and left flank and left lower quadrant tenderness. No ecchymosis or bruising no rash. No hernia or mass no distention. Moving all 4 extremities. Nontender no edema. She is awake alert. Answering questions following commands. Const Vital Signs: 11/16/25 20:00 11/16/25 22:00 Temperature 98 F Temperature Source Oral Pulse Rate 124 H 90 Respiratory Rate 16 25 H Blood Pressure 167/84 H 174/86 H Blood Pressure Mean 111 115 Pulse Ox 98 92 Oxygen Delivery Method Room Air Room Air MDM MDM MDM Narrative Medical decision making narrative: 50-year-old female left flank and abdominal pain with recent workup negative. Abdominal labs shows a UA plus a CAT scan. She be treated with IV morphine, Zofran and Toradol. Repeat exam patient still having pain around 10:25 PM. Will be given additional morphine. We have gone over lab work. We are waiting for her UA and your CAT scan interpretation. Repeat exam at 11 PM there is no significant change was given additional morphine earlier. CAT scan is consistent with a colitis. Possibly chronic pancreatitis. Pancreatic enzymes are really not very elevated. Discharged to home. Motrin and Tylenol for pain. Outpatient follow-up as needed. Patient was also given a prescription for potassium for her hypokalemia. History & Record Review Discussion w/independent historian: Patient Additional record(s) reviewed:: Prior outpatient record, Prior ED visit and Prior labs Lab Data Attestation: I reviewed the patient's lab results. Lab results narrative: CBC shows a white count 9.3 H&H 11.9 and 34. Platelets 273. Electrolytes show potassium of 2.9. Anion gap of 20. BUN at 7 creatinine 0.3. Glucose 86. Liver enzymes show an alk phos of 106 AST of 38. Amylase and lipase are both elevated but only mildly at 188 and 164. Serum test negative. Labs are consistent with baseline. UA negative. No nitrates. No white or red cells. Only rare bacteria. Labs: Laboratory Results - last 24 hr 11/16/25 11/16/25 21:13 22:15 WBC 9.3 RBC 3.44 L Hgb 11.9 L Hct 34.4 L MCV 100.0 H MCH 34.6 H MCHC 34.6 RDW Std Deviation 49.9 H RDW Coeff of Braxton 13.6 Plt Count 273 MPV 9.3 Immature Gran % (Auto) 0.300 Neut % (Auto) 82.1 H Lymph % (Auto) 10.8 L Surry % (Auto) 6.1 Eos % (Auto) 0.3 Baso % (Auto) 0.4 Absolute Neuts (auto) 7.6 Absolute Lymphs (auto) 1.00 Nucleated RBC % 0.2 Sodium 141 Potassium 2.9 L Chloride 93 L Carbon Dioxide 28.0 Anion Gap 20 H BUN 7 Creatinine 0.39 L Estim Creat Clear Calc 152.33 Est GFR (MDRD) Non-Af 122 BUN/Creatinine Ratio 18.4 Glucose 86 Calcium 9.5 Total Bilirubin 0.94 AST 38 H ALT 16 Alkaline Phosphatase 106 H Total Protein 6.7 Albumin 3.5 Globulin 3.2 Albumin/Globulin Ratio 1.1 Amylase 188 H Lipase 164 H Serum , Qual NEGATIVE Urine Color Yellow Urine Clarity Clear Urine pH 6.5 Ur Specific Dora 1.010 Urine Protein 15 H Urine Glucose (UA) Normal Urine Ketones 15 H Urine Occult Blood Negative Urine Nitrite Negative Urine Bilirubin Negative Urine Urobilinogen Normal Ur Leukocyte Esterase Negative Urine RBC 0 SEEN Urine WBC 0-5 SEEN Ur Squamous Epith Cells 0-5 SEEN Urine Bacteria RARE Hyaline Casts 0-5 SEEN Urine Mucus 0 SEEN Radiography Diagnostic Testing: Clinical Impression(s) from Imaging Studies Abdomen/Pelvis CT 11/16/25 21:40 IMPRESSION: Ongoing inflammatory changes of acute on chronic pancreatitis. No evidence for necrosis or organized fluid collection/pseudocyst formation. Small volume abdominopelvic ascites. Findings suggestive of gastroenteritis and possibly colitis, although this may be due to underdistention or reactive due to the adjacent peripancreatic inflammatory changes. Marked diffuse hepatic steatosis. Reading Location: [facility] Discharge Plan Triage Chief Complaint: Abd Pain ED Provider: Francisco Colon Dx/Rx/DC Orders Clinical Impression: Abdominal pain, Colitis, History of pancreatitis, History of diabetes mellitus, Acute hypokalemia Instructions: Colitis, ED Abdominal Pain Unkn Cause Fem Prescriptions: New oxycodone-acetaminophen [Percocet] 5-325 mg tablet 1 tab PO Q8H PRN (Reason: pain) 3 Days Qty: 7 0RF potassium chloride 20 mEq tablet,ER particles/crystals 20 meq PO TID Qty: 20 0RF No Action metformin 500 mg tablet 500 ea PO BID cholecalciferol (vitamin D3) 50 mcg (2,000 unit) capsule 50 mcg PO DAILY aspirin 81 mg Tablet,Chewable 81 mg PO DAILY@0800 Qty: 30 0RF bupropion HCl 150 mg tablet extended release 24 hr 150 mg PO DAILY Patient Comments: take 1 tablet by mouth once daily montelukast [Singulair] 10 mg Tablet 10 mg PO DAILY lisinopril 40 mg tablet 40 mg PO DAILY levocetirizine 5 mg tablet 5 mg PO DAILY fluoxetine 40 mg capsule 40 mg PO DAILY atorvastatin 40 mg tablet 40 mg PO QHS naltrexone 50 mg tablet 50 mg PO DAILY lorazepam 1 mg tablet 1 mg PO BID PRN (Reason: anxiety) pantoprazole 40 mg tablet,delayed release (DR/EC) 40 mg PO DAILY 30 Days Qty: 30 0RF metoprolol succinate 25 mg tablet extended release 24 hr 25 mg PO DAILY Jardiance 25 mg tablet 25 mg PO DAILY buspirone 5 mg tablet 5 mg PO TID PRN (Reason: anxiety) amlodipine 5 mg tablet 5 mg PO DAILY hydroxyzine HCl 10 mg tablet 10 mg PO Q8H PRN (Reason: anxiety) budesonide-formoterol 160-4.5 mcg/actuation HFA aerosol inhaler 2 puff INHALATION BID hydrocodone-acetaminophen 5-325 mg tablet 1 tab PO Q6H PRN PRN (Reason: Pain) 3 Days Qty: 12 0RF hyoscyamine sulfate 0.125 mg tablet, sublingual 0.25 mg sublingual Q6H PRN (Reason: abominal discomfort) Qty: 12 0RF ondansetron 8 mg tablet,disintegrating 8 mg PO Q8H PRN (Reason: nausea and vomiting) Qty: 12 0RF potassium chloride [K-Tab] 20 mEq tablet extended release 20 meq PO BID Qty: 10 0RF Primary Care Provider: Abisai Haley Referrals: Abisai Halye MD [Primary Care Provider, Family Practice] - 3-5 Days if not improving Activity Restrictions/Additional Instructions: Her blood work and urine look good. CAT scan showed mild inflammation of your colon. Which could be the cause your pain. Fluids and rest. Motrin and Tylenol for pain. Follow-up with your doctor if not improving. Pain meds as needed. K-Dur for your low potassium. Have your potassium rechecked in several weeks. Print Language: Kyrgyz Disposition Disposition: Home, Self Care
--- OUTSIDE RECORDS SUMMARY | 2025-11-16 21:02 | XMS RPT_ITS | CCD ---
Author Organization [facility] CliniSyky Care Team Providers Care Utilities Ground Worker Name Role Phone Required, No Pcp Unavailable Unavailable MikoNoe zhang Unavailable Ihsan Aguilar DO Primary Care Provider [...] Provider Dr. Young Kiran Referring Provider Ganesh CARPENTER, CARPENTER-C Jim Attending Provider Jose, DO Milana M Primary Care Provider Jose, DO Milana M Referring Provider Beau SMITH PA [place] Attending Provider Jose, DO Milana M Primary Care Provider Jose, DO Milana M Primary Care Provider Jose, DO Milana M Referring Provider LUIS Rosario Attending Provider Ganesh CARPENTER, CARPENTER-C Jim Attending Provider LUIS Gramajo Attending Provider Jose, DO Milana M Primary Care Provider Jose, DO Milana M Referring Provider LUIS Gramajo Attending Provider Dr. Jose Talyor Attending Provider Ihsan Aguilar DO Primary Care Provider IHSAN AGUILAR Primary Care Unavailable Sudha LEBLANC, Abisai Primary Care Provider Dr. Imani Knight DO Emergency Provider Dr. Imain Knight DO Attending Provider Dr. Francisco Colon MD Emergency Provider Dr. Francisco Colon MD Attending Provider Dr. Humphrey Garcia DO Referring Provider Dr. Humphrey Garcia DO Emergency Provider Antwan LEBLANC, Dr. [place] [facility] Attending Provider Dashawn Moncada MD, Dr. [place] Other Provider Unavailab rob Becker DO, Dr. Cavanaugh Attending Provider Lucia LEBLANC, Dr. Lemos Other Provider Unavailable Antwan LEBLANC, Dr. [place] Attending Provider Dashawn Myers MD, Dr. Lemos Attending Provider Unavaila tommie Becker DO, Dr. Cavanaugh Other Provider [facility] Dr. Morales Emergency Provider [...] Physician Pallavi LEBLANC, Dr. Basilio Nurse Practitioner Garrett LEBLANC, Dr. Brothers Nurse Practitioner Abisai [...] Drug Class(es) Dates Sig (Normalized) Sig (Original) [id number] 200 actuat albuterol 0.09 mg/actuat metered dose [...] tablet (2 sources) Opioid Antagonist Start: 5 [place]-3 Fatty Acids (3 sources) Start: 3 take 1000 mg by mouth once daily [place]-3 Fatty Acids Active 1000 MG PO DAILY August 24, 2023 11:00pm Start: 08-25-2023 take 1000 mg by mouth once colleen ly [place]-3 Fatty Acids Active 1000 MG PO DAILY [...] 20 mg/ml oral solution (16 sources) Uncompetitive I-jgzpkc-W-aspartate Receptor Antagonist, Sigma-1 Agonist Start: 07-01-2023 End: [...] 17, 2023 12:00am February 18, 2023 12:05am [place]-3 Fatty Acids 1,000 mg capsule (6 sources) Start: 08-25-2023 End: 05-06-2025 take 1 capsule by mouth once daily [place]-3 Fatty Acids 1,000 mg capsule Discontinued 1000 mg PO DAILY August 25, 2023 12:00am May 06, 2025 1:18pm Start: 08-25-2023 take 1 capsule by mo [facility] once daily [place]-3 Fatty Acids 1,000 mg capsule Active 1000 [...] Comment on above: Take 1 tablet by [facility] every 6 hours as needed for Nausea/Vomiting. [...] 08-23-2025 Ionized Calcium 1.01 mmol/L Low 1.09-1.30 [facility] Comment on above: Performed By: #### L 501.2276, L501.6901 ####[facility] [address] [place], [address] Liver Profileon 08-16-2025 ALB Normal 3.5-5.0 [facility] Comment on above: Result Comment: Canc elled via OM: Order cancelled - Patient discharged Performed By: #### L 500.3400 ####[facility] [address] [place], [address] ALK PHOS Normal 35-104 [facility] Comment on above: Result Comment: Canc elled via OM: Order cancelled - Patient discharged Performed By: #### L 500.3400 ####[facility] [address] [place], [address] ALT Normal <=34 [facility] Comment on above: Result Comment: Canc elled via OM: Order cancelled - Patient discharged Performed By: #### L 500.3400 ####[facility] [address] [place], [address] AST Normal <=31 [facility] Comment on above: Result Comment: Canc elled via OM: Order cancelled - Patient discharged Performed By: #### L 500.3400 ####[facility] [address] [place], [address] D BILI Normal 0.00-0.30 [facility] Comment on above: Result Comment: Canc elled via OM: Order cancelled - Patient discharged Performed By: #### L 500.3400 ####[facility] [address] [place], [address] T BILI Normal 0.00-1.30 [facility] Comment on above: Result Comment: Canc elled via OM: Order cancelled - Patient discharged Performed By: #### L 500.3400 ####[facility] [address] [place], [address] T PROT Normal 5.9-8.4 [facility] Comment on above: Result Comment: Canc elled via OM: Order cancelled - Patient discharged Performed By: #### L 500.3400 ####[facility] [address] [place], [address] Anion gap in Serum or Plasma Ordered By: Zev Tucker on 08-15-2025 Anion gap [Moles/Vol] 11 mmol/L 5-15 [facility] BUN/creatinine ratioOrdered By: Zev Tucker on 08-15-2025 Urea nitrogen/Creatinine [Mass ratio] 9.5 mg/mg Low 10- [facility] Basic Metabolic Profile (BMP )on 08-15-2025 BUN/CRE 9.5 RATIO Low - [facility] Comment on above: Performed By: #### L 500.3400, L500.2500 ####[facility] [address] [place], [address] Calcium [Mass/Vol] 8.1 mg/dL Normal 7.6-11.0 [facility] Comment on above: Performed By: #### L 500.3400, L500.2500 ####[facility] [address] [place], [address] Chloride [Moles/Vol] 98 mmol/L Normal 98-108 [facility] Comment on above: Performed By: #### L 500.3400, L500.2500 ####[facility] [address] [place], [address] CO2 [Moles/Vol] 31.5 mmol/L Normal 21.0-32.0 [facility] Comment on above: Performed By: #### L 500.3400, L500.2500 ####[facility] [address] [place], [address] Creatinine [Mass/Vol] 0.39 mg/dL Low 0.70-1.20 [facility] Comment on above: Performed By: #### L 500.3400, L500.2500 ####[facility] [address] [place], [address] ECRCL 149.83 ml/min Normal 50-250 [facility] Comment on above: Performed By: #### L 500.3400, L500.2500 ####[facility] [address] [place], [address] GAP 11 Normal 5-15 [facility] Comment on above: Performed By: #### L 500.3400, L500.2500 ####[facility] [address] [place], [address] GFR/1.73 sq M.predicted among non-blacks MDRD (S/P/Bld) [Vol rate/Area] 123 mL/min/{1.73_m2} Normal >60 [facility] Comment on above: Result Comment: mL/m in/1.73m2 CKD-EPI Creatinine Equation (2020) Performed By: #### L 500.3400, L500.2500 ####[facility] [address] [place], [address] Glucose [Mass/Vol] 162 mg/dL High 70-99 [facility] Comment on above: Performed By: #### L 500.3400, L500.2500 ####[facility] [address] [place], [address] Potassium [Moles/Vol] 3.4 mmol/L Normal 3.3-5.1 [facility] Comment on above: Performed By: #### L 500.3400, L500.2500 ####[facility] [address] [place], [address] Sodium [Moles/Vol] 140 mmol/L Normal 133-145 [facility] Comment on above: Performed By: #### L 500.3400, L500.2500 ####[facility] [address] [place], [address] Urea nitrogen [Mass/Vol] 4 mg/dL Normal 4-19 [facility] Comment on above: Performed By: #### L 500.3400, L500.2500 ####[facility] [address] [place], [address] Bedside Glucoseon 08-15-2025 FINGERSTICK GLU 241 mg/dL High 74-106 [facility] Comment on above: Result Comment: CHAUNCEY GEMENT OF PATIENT CARE PER NURSING PROTOCOL Performed By: #### L 501.080 ####[facility] [address] [place], [address] FINGERSTICK GLU 268 mg/dL High -106 [facility] Comment on above: Result Comment: CHAUNCEY GEMENT OF PATIENT CARE PER NURSING PROTOCOL Performed By: #### L 501.080 ####[facility] [address] [place], [address] FINGERSTICK GLU 179 mg/dL High -106 [facility] Comment on above: Result Comment: CHAUNCEY GEMENT OF PATIENT CARE PER NURSING PROTOCOL Performed By: #### L 501.080 ####[facility] [address] [place], [address] Bilirubin directOrdered By: Zev Tucker on 08-15-2025 Bilirubin.direct [Mass/Vol] 0.72 mg/dL High 0.00-0.30 [facility] Bilirubin, totalOrdered By: Zev Tucker on 08-15-2025 Bilirubin [Mass/Vol] 1.19 mg/dL 0.00-1.30 [facility] Carbon dioxide, total [Moles /volume] in Central venous bloodOrdered By: Zev Tucker on 08-15-2025 CO2 [Moles/Vol] 31.5 mmol/L 21.0-32.0 [facility] Chloride assayOrdered By: Maria Antonia Tucker on 08-15-2025 Chloride [Moles/Vol] 98 mmol/L 98-108 [facility] Culture, Blood (WB)on 2024 CUB Normal [facility] Comment on above: Performed By: #### L 500.2500, L501.2300, M200.1000 ####[facility] [address] [place], [address] Discharge Instructionon 07-30 Discharge Instruction Normal [facility] Glomerular filtration rate ( GFR) estimation/1.73 sq m using serum, plasma, or whole bOrdered By: Zev Tucker on 08-15-2025 GFR/1.73 sq M.predicted among non-blacks MDRD (S/P/Bld) [Vol rate/Area] 123 mL/min/{1.73_m2} >60 [facility] deOrdered By: Zev Tukcer on 08-15-2025 Glucose [Mass/Vol] 241 mg/dL High 74-106 [facility] Liver Profileon 08-15-2025 Albumin [Mass/Vol] 3.1 g/dL Low 3.5-5.0 [facility] Comment on above: Performed By: #### L 500.3400, L500.2500 ####[facility] [address] [place], [address] ALK PHOS 344 U/L High 35-104 [facility] Comment on above: Performed By: #### L 500.3400, L500.2500 ####[facility] [address] [place], [address] ALT [Catalytic activity/Vol] 37 U/L High <=34 [facility] Comment on above: Performed By: #### L 500.3400, L500.2500 ####[facility] [address] [place], [address] AST [Catalytic activity/Vol] 111 U/L High <=31 [facility] Comment on above: Performed By: #### L 500.3400, L500.2500 ####[facility] [address] [place], [address] Bilirubin [Mass/Vol] 1.19 mg/dL Normal 0.00-1.30 [facility] Comment on above: Performed By: #### L 500.3400, L500.2500 ####[facility] [address] [place], [address] Bilirubin.direct [Mass/Vol] 0.72 mg/dL High 0.00-0.30 [facility] Comment on above: Performed By: #### L 500.3400, L500.2500 ####[facility] [address] [place], [address] Globulin (S) [Mass/Vol] 2.4 g/dL Normal 2.2-4.2 [facility] Comment on above: Performed By: #### L 500.3400, L500.2500 ####[facility] [address] [place], [address] T PROT 5.4 g/dL Low 5.9-8.4 [facility] Comment on above: Performed By: #### L 500.3400, L500.2500 ####[facility] [address] [place], [address] Modified Barium Swallow Stud yon 08-15-2025 Modified Barium Swallow Study Normal [facility] No Panel InformationOrdered By: Zev Tucker on 08-15-2025 111 U/L High <32 [facility] Potassium measurement (mass/ volume)Ordered By: Zev Tucker on 08-15-2025 Potassium (Unsp spec) [Mass/Vol] 3.4 mmol/L 3.3-5.1 [facility] Serum creatinine measurement (mass/volume)Ordered By: Zev Tucker on 08-15-2025 Creatinine [Mass/Vol] 0.39 mg/dL Low 0.70-1.20 [facility] Serum globulin measurementOr dered By: Zev Tucker on 08-15-2025 Globulin (S) [Mass/Vol] 2.4 g/dL 2.2-4.2 [facility] Serum glucose measurement (m ass/volume)Ordered By: Zev Tucker on 08-15-2025 Glucose [Mass/Vol] 162 mg/dL High 70-99 [facility] Serum or plasma alanine wilkerson otransferase (ALT) measurementOrdered By: Zev Tucker on 08-15-2025 ALT [Catalytic activity/Vol] 37 U/L High <35 [facility] Serum or plasma albumin alphonso urement (mass/volume)Ordered By: Zev Tucker on 08-15-2025 Albumin [Mass/Vol] 3.1 g/dL Low 3.5-5.0 [facility] Serum or plasma alkaline trinity sphatase measurementOrdered By: Zev Tucker on 08-15-2025 ALP [Catalytic activity/Vol] 344 U/L High 35-104 [facility] Serum or plasma calcium alphonso urement (mass/volume)Ordered By: Zev Tucker on 08-15-2025 Calcium [Mass/Vol] 8.1 mg/dL 7.6-11.0 [facility] Serum or plasma urea nitroge n measurement (mass/volume)Ordered By: Zev Tucker on 08-15-2025 Urea nitrogen [Mass/Vol] 4 mg/dL 4-19 [facility] Sodium levelOrdered By: Tessa Tucker on 08-15-2025 Sodium [Moles/Vol] 140 mmol/L 133-145 [facility] Total proteinOrdered By: Candice Tucker on 08-15-2025 Protein [Mass/Vol] 5.4 g/dL Low 5.9-8.4 [facility] Basic Metabolic Profile (BMP )on 08-14-2025 BUN/CRE 7.8 RATIO Low 10-20 [facility] Comment on above: Performed By: #### L 500.3400, L501.5200, L500.2500 ####[facility] [address] [place], [address] Calcium [Mass/Vol] 7.8 mg/dL Normal 7.6-11.0 [facility] Comment on above: Performed By: #### L 500.3400, L501.5200, L500.2500 ####[facility] [address] [place], [address] Chloride [Moles/Vol] 96 mmol/L Low 98-108 [facility] Comment on above: Performed By: #### L 500.3400, L501.5200, L500.2500 ####[facility] [address] [place], [address] CO2 [Moles/Vol] 30.8 mmol/L Normal 21.0-32.0 [facility] Comment on above: Performed By: #### L 500.3400, L501.5200, L500.2500 ####[facility] [address] [place], [address] Creatinine [Mass/Vol] 0.44 mg/dL Low 0.70-1.20 [facility] Comment on above: Performed By: #### L 500.3400, L501.5200, L500.2500 ####[facility] [address] [place], [address] ECRCL 135.02 ml/min Normal 50-250 [facility] Comment on above: Performed By: #### L 500.3400, L501.5200, L500.2500 ####[facility] [address] [place], [address] GAP 13 Normal 5-15 [facility] Comment on above: Performed By: #### L 500.3400, L501.5200, L500.2500 ####[facility] [address] [place], [address] GFR/1.73 sq M.predicted among non-blacks MDRD (S/P/Bld) [Vol rate/Area] 119 mL/min/{1.73_m2} Normal >60 [facility] Comment on above: Result Comment: mL/m in/1.73m2 CKD-EPI Creatinine Equation (2020) Performed By: #### L 500.3400, L501.5200, L500.2500 ####[facility] [address] [place], [address] Glucose [Mass/Vol] 131 mg/dL High 70-99 [facility] Comment on above: Performed By: #### L 500.3400, L501.5200, L500.2500 ####[facility] [address] [place], [address] Potassium [Moles/Vol] 3.0 mmol/L Low 3.3-5.1 [facility] Comment on above: Performed By: #### L 500.3400, L501.5200, L500.2500 ####[facility] [address] [place], [address] Sodium [Moles/Vol] 140 mmol/L Normal 133-145 [facility] Comment on above: Performed By: #### L 500.3400, L501.5200, L500.2500 ####[facility] [address] [place], [address] Urea nitrogen [Mass/Vol] 3 mg/dL Low 4-19 [facility] Comment on above: Performed By: #### L 500.3400, L501.5200, L500.2500 ####[facility] [address] [place], [address] Bedside Glucoseon 08-14-2025 FINGERSTICK GLU 177 mg/dL High 74-106 [facility] Comment on above: Result Comment: CHAUNCEY GEMENT OF PATIENT CARE PER NURSING PROTOCOL Performed By: #### L 501.080 ####[facility] [address] [place], [address] FINGERSTICK GLU 112 mg/dL High 74-106 [facility] Comment on above: Result Comment: CHAUNCEY GEMENT OF PATIENT CARE PER NURSING PROTOCOL Performed By: #### L 501.080 ####[facility] [address] [place], [address] FINGERSTICK GLU 223 mg/dL High 74-106 [facility] Comment on above: Result Comment: CHAUNCEY GEMENT OF PATIENT CARE PER NURSING PROTOCOL Performed By: #### L 501.080 ####[facility] [address] [place], [address] FINGERSTICK GLU 138 mg/dL High 74-106 [facility] Comment on above: Result Comment: CHAUNCEY GEMENT OF PATIENT CARE PER NURSING PROTOCOL Performed By: #### L 501.080 ####[facility] [address] [place], [address] Consultation - Infectious Dx on 08-14-2025 Consultation - Infectious Dx Normal [facility] Liver Profileon 08-14-2025 Albumin [Mass/Vol] 3.1 g/dL Low 3.5-5.0 [facility] Comment on above: Performed By: #### L 500.3400, L501.5200, L500.2500 ####[facility] [address] [place], [address] ALK PHOS 229 U/L High 35-104 [facility] Comment on above: Performed By: #### L 500.3400, L501.5200, L500.2500 ####[facility] [address] [place], [address] ALT [Catalytic activity/Vol] 40 U/L High <=34 [facility] Comment on above: Performed By: #### L 500.3400, L501.5200, L500.2500 ####[facility] [address] [place], [address] AST [Catalytic activity/Vol] 110 U/L High <=31 [facility] Comment on above: Performed By: #### L 500.3400, L501.5200, L500.2500 ####[facility] [address] [place], [address] Bilirubin [Mass/Vol] 1.04 mg/dL Normal 0.00-1.30 [facility] Comment on above: Performed By: #### L 500.3400, L501.5200, L500.2500 ####[facility] [address] [place], [address] Bilirubin.direct [Mass/Vol] 0.66 mg/dL High 0.00-0.30 [facility] Comment on above: Performed By: #### L 500.3400, L501.5200, L500.2500 ####[facility] [address] [place], [address] Globulin (S) [Mass/Vol] 2.6 g/dL Normal 2.2-4.2 [facility] Comment on above: Performed By: #### L 500.3400, L501.5200, L500.2500 ####[facility] [address] [place], [address] T PROT 5.6 g/dL Low 5.9-8.4 [facility] Comment on above: Performed By: #### L 500.3400, L501.5200, L500.2500 ####[facility] [address] [place], [address] Magnesiumon 08-14-2025 Magnesium [Mass/Vol] 1.9 mg/dL Normal 1.5-2.2 [facility] Comment on above: Performed By: #### L 500.3400, L501.5200, L500.2500 ####[facility] [address] [place], [address] Magnesium measurement (mass/ volume)Ordered By: Zev Tucker on 08-14-2025 Magnesium (Unsp spec) [Mass/Vol] 1.9 mg/dL 1.5-2.2 [facility] Urine Cultureon 08-14-2025 URC Below infection leve l. Mixed Gram Pos Gram Neg Org [place] Count 1000-10,000 MIXC Mixed contaminants. Submit a new specimen if indicated. Normal [facility] Comment on above: Performed By: #### M 100.2200, M300.4600 ####[facility] [address] [place], [address] Absolute lymphocyte countOrd ered By: Zev Tucker on 08-13-2025 Lymphocytes Auto (Unsp spec) [#/Vol] 0.83 10*3/uL 0.83-4.51 [facility] Automated lymphocyte count a s percentage of total leukocytesOrdered By: Zev Tucker on 08-13-2025 Lymphocytes/100 WBC Auto (Unsp spec) 13.0 % Low 19-41 [facility] Basic Metabolic Profile (BMP )on 08-13-2025 BUN Normal 4-19 [facility] Comment on above: Result Comment: Patricia elled via OM: MD Ordered Performed By: #### L 500.2500 ####[facility] [address] [place], [address] BUN/CRE Normal 10-20 [facility] Comment on above: Result Comment: Patricia elled via OM: MD Ordered Performed By: #### L 500.2500 ####[facility] [address] [place], [address] Calcium Normal 7.6-11.0 [facility] Comment on above: Result Comment: Patricia elled via OM: MD Ordered Performed By: #### L 500.2500 ####[facility] [address] [place], [address] CL Normal 98-108 [facility] Comment on above: Result Comment: Patricia elled via OM: MD Ordered Performed By: #### L 500.2500 ####[facility] [address] [place], [address] CO2 Normal 21.0-32.0 [facility] Comment on above: Result Comment: Patricia elled via OM: MD Ordered Performed By: #### L 500.2500 ####[facility] [address] [place], [address] CREAT,SERUM Normal 0.70-1.20 [facility] Comment on above: Result Comment: Canc elled via OM: MD Ordered Performed By: #### L 500.2500 ####[facility] [address] [place], [address] eGFR Normal >60 [facility] Comment on above: Result Comment: Canc elled via OM: MD Ordered Performed By: #### L 500.2500 ####[facility] [address] [place], [address] GAP Normal 5-15 [facility] Comment on above: Result Comment: Canc elled via OM: MD Ordered Performed By: #### L 500.2500 ####[facility] [address] [place], [address] GLU Normal 70-99 [facility] Comment on above: Result Comment: Canc elled via OM: MD Ordered Performed By: #### L 500.2500 ####[facility] [address] [place], [address] Potassium Normal 3.3-5.1 [facility] Comment on above: Result Comment: Canc elled via OM: MD Ordered Performed By: #### L 500.2500 ####[facility] [address] [place], [address] Basic Metabolic Profile (BMP) Normal 133-145 [facility] Comment on above: Result Comment: Canc elled via OM: MD Ordered Performed By: #### L 500.2500 ####[facility] [address] [place], [address] BUN Normal 4-19 [facility] Comment on above: Result Comment: Canc elled via OM: MD Ordered Performed By: #### L 500.2500 ####[facility] [address] [place], [address] BUN/CRE Normal 10-20 [facility] Comment on above: Result Comment: Canc elled via OM: MD Ordered Performed By: #### L 500.2500 ####[facility] [address] [place], [address] Calcium Normal 7.6-11.0 [facility] Comment on above: Result Comment: Canc elled via OM: MD Ordered Performed By: #### L 500.2500 ####[facility] [address] [place], [address] CL Normal 98-108 [facility] Comment on above: Result Comment: Canc elled via OM: MD Ordered Performed By: #### L 500.2500 ####[facility] [address] [place], [address] CO2 Normal 21.0-32.0 [facility] Comment on above: Result Comment: Canc elled via OM: MD Ordered Performed By: #### L 500.2500 ####[facility] [address] [place], [address] CREAT,SERUM Normal 0.70-1.20 [facility] Comment on above: Result Comment: Canc elled via OM: MD Ordered Performed By: #### L 500.2500 ####[facility] [address] [place], [address] eGFR Normal >60 [facility] Comment on above: Result Comment: Canc elled via OM: MD Ordered Performed By: #### L 500.2500 ####[facility] [address] [place], [address] GAP Normal 5-15 [facility] Comment on above: Result Comment: Canc elled via OM: MD Ordered Performed By: #### L 500.2500 ####[facility] [address] [place], [address] GLU Normal 70-99 [facility] Comment on above: Result Comment: Canc elled via OM: MD Ordered Performed By: #### L 500.2500 ####[facility] [address] [place], [address] Potassium Normal 3.3-5.1 [facility] Comment on above: Result Comment: Patricia stacy via OM: Ordered Performed By: #### L 500.2500 ####[facility] [address] [place], [address] Basic Metabolic Profile (BMP) Normal 133-145 [facility] Comment on above: Result Comment: Patricia stacy via OM: Ordered Performed By: #### L 500.2500 ####[facility] [address] [place], [address] BUN/CRE 13.1 RATIO Normal 10-20 [facility] Comment on above: Performed By: #### L 501.5200, L500.2500, L100.0100, L501.9985 ####[facility] [address] [place], [address] Calcium [Mass/Vol] 6.7 mg/dL Low 7.6-11.0 [facility] Comment on above: Performed By: #### L 501.5200, L500.2500, L100.0100, L501.9985 ####[facility] [address] [place], [address] Chloride [Moles/Vol] 102 mmol/L Normal 98-108 [facility] Comment on above: Performed By: #### L 501.5200, L500.2500, L100.0100, L501.9985 ####[facility] [address] [place], [address] CO2 [Moles/Vol] 26.5 mmol/L Normal 21.0-32.0 [facility] Comment on above: Performed By: #### L 501.5200, L500.2500, L100.0100, L501.9985 ####[facility] [address] [place], [address] Creatinine [Mass/Vol] 0.64 mg/dL Low 0.70-1.20 [facility] Comment on above: Performed By: #### L 501.5200, L500.2500, L100.0100, L501.9985 ####[facility] [address] [place], [address] ECRCL 92.83 ml/min Normal 50-250 [facility] Comment on above: Performed By: #### L 501.5200, L500.2500, L100.0100, L501.9985 ####[facility] [address] [place], [address] GAP 12 Normal 5-15 [facility] Comment on above: Performed By: #### L 501.5200, L500.2500, L100.0100, L501.9985 ####[facility] [address] [place], [address] GFR/1.73 sq M.predicted among non-blacks MDRD (S/P/Bld) [Vol rate/Area] 109 mL/min/{1.73_m2} Normal >60 [facility] Comment on above: Result Comment: mL/m in/1.73m2 CKD-EPI Creatinine Equation (2020) Performed By: #### L 501.5200, L500.2500, L100.0100, L501.9985 ####[facility] [address] [place], [address] Glucose [Mass/Vol] 164 mg/dL High 70-99 [facility] Comment on above: Performed By: #### L 501.5200, L500.2500, L100.0100, L501.9985 ####[facility] [address] [place], [address] Potassium [Moles/Vol] 4.0 mmol/L Normal 3.3-5.1 [facility] Comment on above: Performed By: #### L 501.5200, L500.2500, L100.0100, L501.9985 ####[facility] [address] [place], [address] Sodium [Moles/Vol] 140 mmol/L Normal 133-145 [facility] Comment on above: Performed By: #### L 501.5200, L500.2500, L100.0100, L501.9985 ####[facility] [address] [place], [address] Urea nitrogen [Mass/Vol] 8 mg/dL Normal 4-19 [facility] Comment on above: Performed By: #### L 501.5200, L500.2500, L100.0100, L501.9985 ####[facility] [address] [place], [address] BUN/CRE 13.8 RATIO Normal 10-20 [facility] Comment on above: Performed By: #### L 500.2500 ####[facility] [address] [place], [address] Calcium [Mass/Vol] 7.2 mg/dL Low 7.6-11.0 [facility] Comment on above: Performed By: #### L 500.2500 ####[facility] [address] [place], [address] Chloride [Moles/Vol] 100 mmol/L Normal 98-108 [facility] Comment on above: Performed By: #### L 500.2500 ####[facility] [address] [place], [address] CO2 [Moles/Vol] 27.4 mmol/L Normal 21.0-32.0 [facility] Comment on above: Performed By: #### L 500.2500 ####[facility] [address] [place], [address] Creatinine [Mass/Vol] 0.90 mg/dL Normal 0.70-1.20 [facility] Comment on above: Performed By: #### L 500.2500 ####[facility] [address] [place], [address] ECRCL 62.03 ml/min Normal 50-250 [facility] Comment on above: Performed By: #### L 500.2500 ####[facility] [address] [place], [address] GAP 12 Normal 5-15 [facility] Comment on above: Performed By: #### L 500.2500 ####[facility] [address] [place], [address] GFR/1.73 sq M.predicted among non-blacks MDRD (S/P/Bld) [Vol rate/Area] 79 mL/min/{1.73_m2} Normal >60 [facility] Comment on above: Result Comment: mL/m in/1.73m2 CKD-EPI Creatinine Equation (2020) Performed By: #### L 500.2500 ####[facility] [address] [place], [address] Glucose [Mass/Vol] 162 mg/dL High 70-99 [facility] Comment on above: Performed By: #### L 500.2500 ####[facility] [address] [place], [address] Potassium [Moles/Vol] 3.9 mmol/L Normal 3.3-5.1 [facility] Comment on above: Performed By: #### L 500.2500 ####[facility] [address] [place], [address] Sodium [Moles/Vol] 139 mmol/L Normal 133-145 [facility] Comment on above: Performed By: #### L 500.2500 ####[facility] [address] [place], [address] Urea nitrogen [Mass/Vol] 12 mg/dL Normal 4-19 [facility] Comment on above: Performed By: #### L 500.2500 ####[facility] [address] [place], [address] Basophil percentageOrdered B y: Zev Tucker on 08-13-2025 Basophils/100 WBC (Bld) 0.2 % 0-1 [facility] Bedside Glucoseon 08-13-2025 FINGER[place]ICK GLU 130 mg/dL High 74-106 [facility] Comment on above: Result Comment: CHAUNCEY GEMENT OF PATIENT CARE PER NURSING PROTOCOL Performed By: #### L 501.080 ####[facility] [address] [place], [address] FINGERSTICK GLU 110 mg/dL High 74-106 [facility] Comment on above: Result Comment: CHAUNCEY GEMENT OF PATIENT CARE PER NURSING PROTOCOL Performed By: #### L 501.080 ####[facility] [address] [place], [address] FINGERSTICK GLU 130 mg/dL High 74-106 [facility] Comment on above: Result Comment: CHAUNCEY GEMENT OF PATIENT CARE PER NURSING PROTOCOL Performed By: #### L 501.080 ####[facility] [address] [place], [address] FINGERSTICK GLU 82 mg/dL Normal 74-106 [facility] Comment on above: Result Comment: CHAUNCEY GEMENT OF PATIENT CARE PER NURSING PROTOCOL Performed By: #### L 501.080 ####[facility] [address] [place], [address] FINGERSTICK GLU 78 mg/dL Normal 74-106 [facility] Comment on above: Result Comment: CHAUNCEY GEMENT OF PATIENT CARE PER NURSING PROTOCOL Performed By: #### L 501.080 ####[facility] [address] [place], [address] FINGERSTICK GLU 94 mg/dL Normal 74-106 [facility] Comment on above: Result Comment: CHAUNCEY GEMENT OF PATIENT CARE PER NURSING PROTOCOL Performed By: #### L 501.080 ####[facility] [address] [place], [address] FINGERSTICK GLU 118 mg/dL High 74-106 [facility] Comment on above: Result Comment: CHAUNCEY GEMENT OF PATIENT CARE PER NURSING PROTOCOL Performed By: #### L 501.080 ####[facility] [address] [place], [address] FINGERSTICK GLU 165 mg/dL High 74-106 [facility] Comment on above: Result Comment: CHAUNCEY GEMENT OF PATIENT CARE PER NURSING PROTOCOL Performed By: #### L 501.080 ####[facility] [address] [place], [address] FINGERSTICK GLU 171 mg/dL High 74-106 [facility] Comment on above: Result Comment: CHAUNCEY GEMENT OF PATIENT CARE PER NURSING PROTOCOL Performed By: #### L 501.080 ####[facility] [address] [place], [address] FINGERSTICK GLU 161 mg/dL High 74-106 [facility] Comment on above: Result Comment: CHAUNCEY GEMENT OF PATIENT CARE PER NURSING PROTOCOL Performed By: #### L 501.080 ####[facility] [address] [place], [address] FINGERSTICK GLU 147 mg/dL High 74-106 [facility] Comment on above: Result Comment: CHAUNCEY GEMENT OF PATIENT CARE PER NURSING PROTOCOL Performed By: #### L 501.080 ####[facility] [address] [place], [address] FINGERSTICK GLU 177 mg/dL High 74-106 [facility] Comment on above: Result Comment: CHAUNCEY GEMENT OF PATIENT CARE PER NURSING PROTOCOL Performed By: #### L 501.080 ####[facility] [address] [place], [address] FINGERSTICK GLU 156 mg/dL High 74-106 [facility] Comment on above: Result Comment: CHAUNCEY GEMENT OF PATIENT CARE PER NURSING PROTOCOL Performed By: #### L 501.080 ####[facility] [address] [place], [address] FINGERSTICK GLU 156 mg/dL High 74-106 [facility] Comment on above: Result Comment: CHAUNCEY GEMENT OF PATIENT CARE PER NURSING PROTOCOL Performed By: #### L 501.080 ####[facility] [address] [place], [address] FINGERSTICK GLU 175 mg/dL High 74-106 [facility] Comment on above: Result Comment: CHAUNCEY GEMENT OF PATIENT CARE PER NURSING PROTOCOL Performed By: #### L 501.080 ####[facility] [address] [place], [address] FINGERSTICK GLU 185 mg/dL High 74-106 [facility] Comment on above: Result Comment: CHAUNCEY GEMENT OF PATIENT CARE PER NURSING PROTOCOL Performed By: #### L 501.080 ####[facility] [address] [place], [address] Beta-Hydroxbytyrateon 2024 BETA-HYDROXYBUT 0.2 mmol/L Normal 0.0-0.3 [facility] Comment on above: Performed By: #### L 501.6901 ####[facility] [address] [place], [address] BETA-HYDROXYBUT 0.5 mmol/L High 0.0-0.3 [facility] Comment on above: Performed By: #### L 501.2276, L501.6901 ####[facility] [address] [place], [address] Beta-hydroxybutyrateOrdered By: Canelo Lorenzo on 08-13-2025 Beta hydroxybutyrate [Mass/Vol] 0.2 mmol/L 0.0-0.3 [facility] CBC W/Diff, Automatedon 07-30 Absolute Lymph 0.83 X10 3/uL Normal 0.83-4.51 [facility] Comment on above: Performed By: #### L 501.5200, L500.2500, L100.0100, L501.9985 ####[facility] [address] [place], [address] Absolute Neut 5.1 X10 3/uL Normal 2.0-7.7 [facility] Comment on above: Performed By: #### L 501.5200, L500.2500, L100.0100, L501.9985 ####[facility] [address] [place], [address] Basophils/100 WBC (Bld) 0.2 % Normal 0-1 [facility] Comment on above: Performed By: #### L 501.5200, L500.2500, L100.0100, L501.9985 ####[facility] [address] [place], [address] Eosinophils/100 WBC (Bld) 0.2 % Normal 0-5 [facility] Comment on above: Performed By: #### L 501.5200, L500.2500, L100.0100, L501.9985 ####[facility] [address] [place], [address] Erythrocyte distribution width (RBC) [Ratio] 13.5 % Normal 11.6-14.6 [facility] Comment on above: Performed By: #### L 501.5200, L500.2500, L100.0100, L501.9985 ####[facility] [address] [place], [address] Hematocrit (Bld) [Volume fraction] 30.8 % Low 37-47 [facility] Comment on above: Performed By: #### L 501.5200, L500.2500, L100.0100, L501.9985 ####[facility] [address] [place], [address] Hemoglobin (Bld) [Mass/Vol] 10.6 g/dL Low 12.0-15.0 [facility] Comment on above: Performed By: #### L 501.5200, L500.2500, L100.0100, L501.9985 ####[facility] [address] [place], [address] IG% 0.500 Normal 0.0-0.9 [facility] Comment on above: Result Comment: IG% - Immature Granulocytes (promyelocytes, myelocytes andmetamyelocytes) > 1% indicates that a LEFT SHIFT is Present. Performed By: #### L 501.5200, L500.2500, L100.0100, L501.9985 ####[facility] [address] [place], [address] Lymphocytes/100 WBC (Bld) 13.0 % Low 19-41 [facility] Comment on above: Performed By: #### L 501.5200, L500.2500, L100.0100, L501.9985 ####[facility] [address] [place], [address] MCH (RBC) [Entitic mass] 34.6 pg High 27.0-32.0 [facility] Comment on above: Performed By: #### L 501.5200, L500.2500, L100.0100, L501.9985 ####[facility] [address] [place], [address] MCHC (RBC) [Mass/Vol] 34.4 g/dL Normal 32-36 [facility] Comment on above: Performed By: #### L 501.5200, L500.2500, L100.0100, L501.9985 ####[facility] [address] [place], [address] MCV (RBC) [Entitic vol] 100.7 fL High 81-99 [facility] Comment on above: Performed By: #### L 501.5200, L500.2500, L100.0100, L501.9985 ####[facility] [address] [place], [address] Monocytes/100 WBC (Bld) 6.0 % Normal 0-10 [facility] Comment on above: Performed By: #### L 501.5200, L500.2500, L100.0100, L501.9985 ####[facility] [address] [place], [address] Neutrophils/100 WBC (Bld) 80.1 % High 47-70 [facility] Comment on above: Performed By: #### L 501.5200, L500.2500, L100.0100, L501.9985 ####[facility] [address] [place], [address] Nucleated RBC (Bld) [#/Vol] 0 10*3/uL Normal 0-5 [facility] Comment on above: Performed By: #### L 501.5200, L500.2500, L100.0100, L501.9985 ####[facility] [address] [place], [address] Platelet mean volume (Bld) [Entitic vol] 10.2 fL Normal 6.2-12.0 [facility] Comment on above: Performed By: #### L 501.5200, L500.2500, L100.0100, L501.9985 ####[facility] [address] [place], [address] Platelets (Bld) [#/Vol] 112 10*3/uL Low 150-450 [facility] Comment on above: Performed By: #### L 501.5200, L500.2500, L100.0100, L501.9985 ####[facility] [address] [place], [address] RBC (Bld) [#/Vol] 3.06 10*6/uL Low 4.2-5.4 [facility] Comment on above: Performed By: #### L 501.5200, L500.2500, L100.0100, L501.9985 ####[facility] [address] [place], [address] RDW SD 49.9 fl High 35.1-43.9 [facility] Comment on above: Performed By: #### L 501.5200, L500.2500, L100.0100, L501.9985 ####[facility] [address] [place], [address] WBC (Bld) [#/Vol] 6.4 10*3/uL Normal 4.4-11.0 [facility] Comment on above: Performed By: #### L 501.5200, L500.2500, L100.0100, L501.9985 ####[facility] [address] [place], [address] Eosinophil percentageOrdered By: Zev Tucker on 08-13-2025 Eosinophils/100 WBC (Bld) 0.2 % 0-5 [facility] Erythrocyte distribution wid th ratioOrdered By: Zev Tucker on 08-13-2025 Erythrocyte distribution width (RBC) [Ratio] 13.5 % 11.6-14.6 [facility] Erythrocyte distribution wid th standard deviationOrdered By: Zev Tucker on 08-13-2025 Erythrocyte distribution width (RBC) [Ratio] 49.9 fl High 35.1-43.9 [facility] Hematocrit Auto (Bld) [Volum e fraction]Ordered By: Zev Tucker on 08-13-2025 Hematocrit (Bld) [Volume fraction] 30.8 % Low 37-47 [facility] Hemoglobin A1con 08-13-2025 HbA1c (Bld) [Mass fraction] 5.2 % Normal <=5.6 [facility] Comment on above: Result Comment: Norm al < 5.7 % Prediabetic 5.7 - 6.4 % Diabetic >or= 6.5 % Please note range changes. Performed By: #### L 501.5200, L500.2500, L100.0100, L501.9985 ####[facility] [address] [place], [address] Hemoglobin A1c percentageOrd ered By: Zev Tucker on 08-13-2025 HbA1c (Bld) [Mass fraction] 5.2 % <5.7 [facility] Hemoglobin measurementOrdere d By: Zev Tucker on 08-13-2025 Hemoglobin (Bld) [Mass/Vol] 10.6 g/dL Low 12.0-15.0 [facility] Immature granulocytes/100 WB C Auto (Bld)Ordered By: Zev Tucker on 08-13-2025 Immature granulocytes/100 WBC (Bld) 0.500 % 0.0-0.9 [facility] Liver Profileon 08-13-2025 Albumin [Mass/Vol] 3.2 g/dL Low 3.5-5.0 [facility] Comment on above: Order Comment: MG1 6 M Performed By: #### L 500.3400 ####[facility] [address] [place], [address] ALK PHOS 102 U/L Normal 35-104 [facility] Comment on above: Order Comment: MG1 6 M Performed By: #### L 500.3400 ####[facility] [address] [place], [address] ALT [Catalytic activity/Vol] 49 U/L High <=34 [facility] Comment on above: Order Comment: MG1 6 M Performed By: #### L 500.3400 ####[facility] [address] [place], [address] AST [Catalytic activity/Vol] 158 U/L High <=31 [facility] Comment on above: Order Comment: MG1 6 M Performed By: #### L 500.3400 ####[facility] [address] [place], [address] Bilirubin [Mass/Vol] 0.72 mg/dL Normal 0.00-1.30 [facility] Comment on above: Order Comment: MG1 6 M Performed By: #### L 500.3400 ####[facility] [address] [place], [address] Bilirubin.direct [Mass/Vol] 0.43 mg/dL High 0.00-0.30 [facility] Comment on above: Order Comment: MG1 6 M Performed By: #### L 500.3400 ####[facility] [address] [place], [address] Globulin (S) [Mass/Vol] 2.4 g/dL Normal 2.2-4.2 [facility] Comment on above: Order Comment: MG1 6 M Performed By: #### L 500.3400 ####[facility] [address] [place], [address] T PROT 5.6 g/dL Low 5.9-8.4 [facility] Comment on above: Order Comment: MG1 6 M Performed By: #### L 500.3400 ####[facility] [address] [place], [address] MCV (mean corpuscular volume ) determinationOrdered By: Zev Tucker on 08-13-2025 MCV (RBC) [Entitic vol] 100.7 fL High 81-99 [facility] Magnesiumon 08-13-2025 Magnesium [Mass/Vol] 1.0 mg/dL Low 1.5-2.2 [facility] Comment on above: Result Comment: Crit ical Result(s) Called at: 0436 08/13/2025 by:ANTONI??Results read back by same. Performed By: #### L 501.5200 ####[facility] [address] [place], [place], [address] Magnesium [Mass/Vol] 0.9 mg/dL Invalid Interpretation Code 1.5-2.2 [facility] Comment on above: Result Comment: Crit ical Result(s) Called at 0554: by: OTTO GROVER??Results read back by same. Performed By: #### L 501.5200, L500.2500, L100.0100, L501.9985 ####[facility] [address] [place], [place], [address] Mean corpuscular hemoglobin (MCH) determinationOrdered By: Zev Tucker on 08-13-2025 MCH (RBC) [Entitic mass] 34.6 pg High 27.0-32.0 [facility] Monocyte percentageOrdered B y: Zev Tucker on 08-13-2025 Monocytes/100 WBC (Bld) 6.0 % 0-10 [facility] Neutrophil percentageOrdered By: Zev Tucker on 08-13-2025 Neutrophils/100 WBC (Bld) 80.1 % High 47-70 [facility] Phosphoruson 08-13-2025 Phosphate [Mass/Vol] 3.8 mg/dL Normal 2.7-4.5 [facility] Comment on above: Order Comment: Comme nts: add on to AM labs Performed By: #### L 501.2300 ####[facility] [address] [place], [place], [address] Platelet countOrdered By: Maria Antonia Tucker on 08-13-2025 Platelets (Bld) [#/Vol] 112 10*3/uL Low 150-450 [facility] RBC Auto (Bld) [#/Vol]Ordere d By: Zev Tucker on 08-13-2025 RBC (Bld) [#/Vol] 3.06 10*6/uL Low 4.2-5.4 [facility] White blood cell (WBC) count Ordered By: Zev Tucker on 08-13-2025 WBC (Bld) [#/Vol] 6.4 10*3/uL 4.4-11.0 [facility] Abdomen/Pelvis W IV Cont ONL Yon 08-12-2025 Abdomen/Pelvis W IV Cont ONLY Normal [facility] Absolute lymphocyte countOrd ered By: Wellington Rader on 08-12-2025 Lymphocytes Auto (Unsp spec) [#/Vol] 1.18 10*3/uL 0.83-4.51 [facility] Anion gap in Serum or Plasma Ordered By: Wellington Rader on 08-12-2025 Anion gap [Moles/Vol] 48 mmol/L High 04-12 [facility] BUN/creatinine ratioOrdered By: Wellington Rader on 08-12-2025 Urea nitrogen/Creatinine [Mass ratio] 10.8 mg/mg 09-17 [facility] Basic Metabolic Profile (BMP )on 08-12-2025 BUN/CRE 15.8 RATIO Normal 09-17 [facility] Comment on above: Performed By: #### L 500.2500, L501.2300, M200.1000 ####[facility] [address] [place], [address] Calcium [Mass/Vol] 7.3 mg/dL Low 7.6-11.0 [facility] Comment on above: Performed By: #### L 500.2500, L501.2300, M200.1000 ####[facility] [address] [place], [address] Chloride [Moles/Vol] 98 mmol/L Normal 98-108 [facility] Comment on above: Performed By: #### L 500.2500, L501.2300, M200.1000 ####[facility] [address] [place], [address] CO2 [Moles/Vol] 26.8 mmol/L Normal 21.0-32.0 [facility] Comment on above: Performed By: #### L 500.2500, L501.2300, M200.1000 ####[facility] [address] [place], [address] Creatinine [Mass/Vol] 0.97 mg/dL Normal 0.70-1.20 [facility] Comment on above: Performed By: #### L 500.2500, L501.2300, M200.1000 ####[facility] [address] [place], [address] ECRCL 57.55 ml/min Normal 50-250 [facility] Comment on above: Performed By: #### L 500.2500, L501.2300, M200.1000 ####[facility] [address] [place], [address] GAP 15 Normal 5-15 [facility] Comment on above: Performed By: #### L 500.2500, L501.2300, M200.1000 ####[facility] [address] [place], [address] GFR/1.73 sq M.predicted among non-blacks MDRD (S/P/Bld) [Vol rate/Area] 72 mL/min/{1.73_m2} Normal >60 [facility] Comment on above: Result Comment: mL/m in/1.73m2 CKD-EPI Creatinine Equation (2020) Performed By: #### L 500.2500, L501.2300, M200.1000 ####[facility] [address] [place], [address] Glucose [Mass/Vol] 179 mg/dL High 70-99 [facility] Comment on above: Performed By: #### L 500.2500, L501.2300, M200.1000 ####[facility] [address] [place], [address] Potassium [Moles/Vol] 3.4 mmol/L Normal 3.3-5.1 [facility] Comment on above: Performed By: #### L 500.2500, L501.2300, M200.1000 ####[facility] [address] [place], [address] Sodium [Moles/Vol] 140 mmol/L Normal 133-145 [facility] Comment on above: Performed By: #### L 500.2500, L501.2300, M200.1000 ####[facility] [address] [place], [address] Urea nitrogen [Mass/Vol] 15 mg/dL Normal 4-19 [facility] Comment on above: Performed By: #### L 500.2500, L501.2300, M200.1000 ####[facility] [address] [place], [address] BUN Normal - [facility] Comment on above: Result Comment: DUP ORDER Performed By: #### L 500.2500 ####[facility] [address] [place], [address] BUN/CRE Normal 10-20 [facility] Comment on above: Result Comment: DUP ORDER Performed By: #### L 500.2500 ####[facility] [address] [place], [address] Calcium Normal 7.6-11.0 [facility] Comment on above: Result Comment: DUP ORDER Performed By: #### L 500.2500 ####[facility] [address] [place], [address] CL Normal 98-108 [facility] Comment on above: Result Comment: DUP ORDER Performed By: #### L 500.2500 ####[facility] [address] [place], [address] CO2 Normal 21.0-32.0 [facility] Comment on above: Result Comment: DUP ORDER Performed By: #### L 500.2500 ####[facility] [address] [place], [address] CREAT,SERUM Normal 0.70-1.20 [facility] Comment on above: Result Comment: DUP ORDER Performed By: #### L 500.2500 ####[facility] [address] [place], [address] eGFR Normal >60 [facility] Comment on above: Result Comment: DUP ORDER Performed By: #### L 500.2500 ####[facility] [address] [place], [address] GAP Normal 5-15 [facility] Comment on above: Result Comment: DUP ORDER Performed By: #### L 500.2500 ####[facility] [address] [place], [address] GLU Normal 70-99 [facility] Comment on above: Result Comment: DUP ORDER Performed By: #### L 500.2500 ####[facility] [address] [place], [address] Potassium Normal 3.3-5.1 [facility] Comment on above: Result Comment: DUP ORDER Performed By: #### L 500.2500 ####[facility] [address] [place], [address] Basic Metabolic Profile (BMP) Normal 133-145 [facility] Comment on above: Result Comment: DUP ORDER Performed By: #### L 500.2500 ####[facility] [address] [place], [address] Bedside Glucoseon 08-12-2025 FINGERSTICK GLU 186 mg/dL High 74-106 [facility] Comment on above: Result Comment: CHAUNCEY GEMENT OF PATIENT CARE PER NURSING PROTOCOL Performed By: #### L 501.080 ####[facility] [address] [place], [address] FINGERSTICK GLU 171 mg/dL High 74-106 [facility] Comment on above: Result Comment: CHAUNCEY GEMENT OF PATIENT CARE PER NURSING PROTOCOL Performed By: #### L 501.080 ####[facility] [address] [place], [address] FINGERSTICK GLU 173 mg/dL High 74-106 [facility] Comment on above: Result Comment: CHAUNCEY GEMENT OF PATIENT CARE PER NURSING PROTOCOL Performed By: #### L 501.080 ####[facility] [address] [place], [address] FINGERSTICK GLU 211 mg/dL High 74-106 [facility] Comment on above: Result Comment: CHAUNCEY GEMENT OF PATIENT CARE PER NURSING PROTOCOL Performed By: #### L 501.080 ####[facility] [address] [place], [address] FINGERSTICK GLU 198 mg/dL High 74-106 [facility] Comment on above: Result Comment: CHAUNCEY GEMENT OF PATIENT CARE PER NURSING PROTOCOL Performed By: #### L 501.080 ####[facility] [address] [place], [address] FINGERSTICK GLU 234 mg/dL High 74-106 [facility] Comment on above: Result Comment: CHAUNCEY GEMENT OF PATIENT CARE PER NURSING PROTOCOL Performed By: #### L 501.080 ####[facility] [address] [place], [address] FINGERSTICK GLU 174 mg/dL High 74-106 [facility] Comment on above: Result Comment: CHAUNCEY GEMENT OF PATIENT CARE PER NURSING PROTOCOL Performed By: #### L 501.080 ####[facility] [address] [place], [address] FINGERSTICK GLU 158 mg/dL High 74-106 [facility] Comment on above: Result Comment: CHAUNCEY GEMENT OF PATIENT CARE PER NURSING PROTOCOL Performed By: #### L 501.080 ####[facility] [address] [place], [address] FINGERSTICK GLU 208 mg/dL High 74-106 [facility] Comment on above: Result Comment: CHAUNCEY GEMENT OF PATIENT CARE PER NURSING PROTOCOL Performed By: #### L 501.080 ####[facility] [address] [place], [address] FINGERSTICK GLU 232 mg/dL High 74-106 [facility] Comment on above: Result Comment: CHAUNCEY GEMENT OF PATIENT CARE PER NURSING PROTOCOL Performed By: #### L 501.080 ####[facility] [address] [place], [address] FINGERSTICK GLU 270 mg/dL High 74-106 [facility] Comment on above: Result Comment: CHAUNCEY GEMENT OF PATIENT CARE PER NURSING PROTOCOL Performed By: #### L 501.080 ####[facility] [address] [place], [address] Beta-Hydroxbytyrateon 2024 BETA-HYDROXYBUT 14.0 mmol/L High 0.0-0.3 [facility] Comment on above: Performed By: #### L 501.6901, L503.6005 ####[facility] [address] [place], [address] Beta-hydroxybutyrateOrdered By: Wellington Rader on 08-12-2025 Beta hydroxybutyrate [Mass/Vol] 14.0 mmol/L High 0.0-0.3 [facility] Bilirubin Test strip Ql (U)O rdered By: Zev Tucker on 08-12-2025 Bilirubin Ql (U) 1 mg/dL High Negative [facility] Bilirubin, totalOrdered By: Wellington Rader on 08-12-2025 Bilirubin [Mass/Vol] 1.22 mg/dL 0.00-1.30 [facility] Blood Gases by CPSon 025 Base excess Calc (Bld) [Moles/Vol] 0 mmol/L Normal -2 to +2 [facility] Comment on above: Performed By: #### L 9000.0800 ####[facility] [address] [place], [address] Blood Gas Type ART Normal [facility] Comment on above: Performed By: #### L 9000.0800 ####[facility] [address] [place], [address] CO2 [Moles/Vol] 23 mmol/L Normal [facility] Comment on above: Performed By: #### L 9000.0800 ####[facility] [address] [place], [address] HCO3 (Bld) [Moles/Vol] 22.2 mmol/L Normal 22-26 [facility] Comment on above: Performed By: #### L 9000.0800 ####[facility] [address] [place], [address] Mode Not entered Normal [facility] Comment on above: Performed By: #### L 9000.0800 ####[facility] [address] [place], [address] O2 Delivery Dev Not entered Normal [facility] Comment on above: Performed By: #### L 9000.0800 ####[facility] [address] [place], [address] pCO2 24.6 mmHg Low 35-45 [facility] Comment on above: Performed By: #### L 9000.0800 ####[facility] [address] [place], [address] pH (Bld) 7.56 [pH] High 7.35-7.45 [facility] Comment on above: Performed By: #### L 9000.0800 ####[facility] [address] [place], [address] PO2 63 mmHG Low 75-100 [facility] Comment on above: Performed By: #### L 9000.0800 ####[facility] [address] [place], [address] SITE Not entered Normal [facility] Comment on above: Performed By: #### L 9000.0800 ####[facility] [address] [place], [address] SO2 95 Normal 95-99 [facility] Comment on above: Performed By: #### L 9000.0800 ####[facility] [address] [place], [address] Blood base excess determinat ionOrdered By: Wellington Rader on 08-12-2025 Base excess Calc (BldV) [Moles/Vol] 0 mmol/L -2-2 [facility] Blood bicarbonate measuremen tOrdered By: Wellington Rader on 08-12-2025 HCO3 (Bld) [Moles/Vol] 22.2 mmol/L 22-26 [facility] Blood cultureOrdered By: Candice Tucker on 08-12-2025 Bacteria identified Cx Nom (Bld) Pasteurella multocida Abnormal [facility] Blood lymphocytes/100 leukoc ytesOrdered By: Wellington Rader on 08-12-2025 Lymphocytes/100 WBC (Bld) 10 % Low 19-41 [facility] Blood monocytes/100 leukocyt esOrdered By: Wellington Rader on 08-12-2025 Monocytes/100 WBC (Bld) 3 % 0-10 [facility] Blood segmented neutrophils/ 100 leukocytesOrdered By: Wellington Rader on 08-12-2025 Segmented neutrophils/100 WBC (Bld) 87 % High 47-70 [facility] CBC W/Diff, Automatedon 07-30 Absolute Lymph 1.18 X10 3/uL Normal 0.83-4.51 [facility] Comment on above: Performed By: #### L 100.0100, L501.2450, L500.4050 ####[facility] [address] [place], [address] Absolute Neut 10.3 X10 3/uL High 2.0-7.7 [facility] Comment on above: Performed By: #### L 100.0100, L501.2450, L500.4050 ####[facility] [address] [place], [address] CO2 (BldV) [Moles/Vol]Ordere d By: Wellington Rader on 08-12-2025 CO2 [Moles/Vol] 26 mmol/L 23-33 [facility] Carbon dioxide, total [Moles /volume] in Central venous bloodOrdered By: Wellington Rader on 08-12-2025 CO2 [Moles/Vol] 17.4 mmol/L Low 21.0-32.0 [facility] Chloride assayOrdered By: Penny Rader on 08-12-2025 Chloride [Moles/Vol] 73 mmol/L Low 98-108 [facility] Comprehensive Metabolic Prof ilon 08-12-2025 Albumin [Mass/Vol] 4.6 g/dL Normal 3.5-5.0 [facility] Comment on above: Performed By: #### L 100.0100, L501.2450, L500.4050 ####[facility] [address] [place], [address] Albumin/Globulin [Mass ratio] 1.3 {ratio} Normal 0.9-2.4 [facility] Comment on above: Performed By: #### L 100.0100, L501.2450, L500.4050 ####[facility] [address] [place], [address] ALK PHOS 135 U/L High 35-104 [facility] Comment on above: Performed By: #### L 100.0100, L501.2450, L500.4050 ####[facility] [address] [place], [address] ALT [Catalytic activity/Vol] 108 U/L High <=34 [facility] Comment on above: Performed By: #### L 100.0100, L501.2450, L500.4050 ####[facility] [address] [place], [address] AST [Catalytic activity/Vol] 408 U/L High <=31 [facility] Comment on above: Performed By: #### L 100.0100, L501.2450, L500.4050 ####[facility] [address] [place], [address] Bilirubin [Mass/Vol] 1.22 mg/dL Normal 0.00-1.30 [facility] Comment on above: Performed By: #### L 100.0100, L501.2450, L500.4050 ####[facility] [address] [place], [address] BUN/CRE 10.8 RATIO Normal 10-20 [facility] Comment on above: Performed By: #### L 100.0100, L501.2450, L500.4050 ####[facility] [address] [place], [address] Calcium [Mass/Vol] 9.2 mg/dL Normal 7.6-11.0 [facility] Comment on above: Performed By: #### L 100.0100, L501.2450, L500.4050 ####[facility] [address] [place], [address] Chloride [Moles/Vol] 73 mmol/L Invalid Interpretation Code 98-108 [facility] Comment on above: Result Comment: Crit ical Result(s) Called at: by:??Results read back bysame.Critical Result(s) Called to: Obie LEE (ER) by:Rolo??Results read back by same. Performed By: #### L 100.0100, L501.2450, L500.4050 ####[facility] [address] [place], [address] CO2 [Moles/Vol] 17.4 mmol/L Low 21.0-32.0 [facility] Comment on above: Performed By: #### L 100.0100, L501.2450, L500.4050 ####[facility] [address] [place], [address] Creatinine [Mass/Vol] 1.82 mg/dL High 0.70-1.20 [facility] Comment on above: Performed By: #### L 100.0100, L501.2450, L500.4050 ####[facility] [address] [place], [address] GAP 48 High 5-15 [facility] Comment on above: Performed By: #### L 100.0100, L501.2450, L500.4050 ####[facility] [address] [place], [address] GFR/1.73 sq M.predicted among non-blacks MDRD (S/P/Bld) [Vol rate/Area] 34 mL/min/{1.73_m2} Low >60 [facility] Comment on above: Result Comment: mL/m in/1.73m2 CKD-EPI Creatinine Equation (2020) Performed By: #### L 100.0100, L501.2450, L500.4050 ####[facility] [address] [place], [address] Globulin (S) [Mass/Vol] 3.6 g/dL Normal 2.2-4.2 [facility] Comment on above: Performed By: #### L 100.0100, L501.2450, L500.4050 ####[facility] [address] [place], [address] Glucose [Mass/Vol] 300 mg/dL High 70-99 [facility] Comment on above: Performed By: #### L 100.0100, L501.2450, L500.4050 ####[facility] [address] [place], [address] Potassium [Moles/Vol] 3.1 mmol/L Low 3.3-5.1 [facility] Comment on above: Performed By: #### L 100.0100, L501.2450, L500.4050 ####[facility] [address] [place], [address] Sodium [Moles/Vol] 139 mmol/L Normal 133-145 [facility] Comment on above: Performed By: #### L 100.0100, L501.2450, L500.4050 ####[facility] [address] [place], [address] T PROT 8.3 g/dL Normal 5.9-8.4 [facility] Comment on above: Performed By: #### L 100.0100, L501.2450, L500.4050 ####[facility] [address] [place], [address] Urea nitrogen [Mass/Vol] 20 mg/dL High 4-19 [facility] Comment on above: Performed By: #### L 100.0100, L501.2450, L500.4050 ####[facility] [address] [place], [address] Emergency Department Summary on 08-12-2025 Emergency Department Summary Normal [facility] Erythrocyte distribution wid th ratioOrdered By: Wellington Rader on 08-12-2025 Erythrocyte distribution width (RBC) [Ratio] 13.6 % 11.6-14.6 [facility] Erythrocyte distribution wid th standard deviationOrdered By: Wellington Rader on 08-12-2025 Erythrocyte distribution width (RBC) [Ratio] 50.9 fl High 35.1-43.9 [facility] Erythrocyte morphology asses smentOrdered By: Wellington Rader on 08-12-2025 RBC morphology finding Nom (Bld) NORM C+C NORMAL NORM C&C [facility] Glomerular filtration rate ( GFR) estimation/1.73 sq m using serum, plasma, or whole bOrdered By: Wellington Rader on 08-12-2025 GFR/1.73 sq M.predicted among non-blacks MDRD (S/P/Bld) [Vol rate/Area] 34 mL/min/{1.73_m2} Low >60 [facility] H AND P Exam - Hospitaliston 08-12-2025 H&P Exam - Hospitalist Normal [facility] Hematocrit Auto (Bld) [Volum e fraction]Ordered By: Wellington Rader on 08-12-2025 Hematocrit (Bld) [Volume fraction] 41.3 % 37-47 [facility] Hemoglobin measurementOrdere d By: Wellington Prasanth on 08-12-2025 Hemoglobin (Bld) [Mass/Vol] 14.1 g/dL 12.0-15.0 [facility] Influenza virus A and B and SARS-CoV-2 (COVID-19) and Respiratory syncytial virus RNAOrdered By: Wellingtonfortino Rader on 08-12-2025 SARS-CoV-2 (COVID-19) RNA ALLEY+probe Ql (Unsp spec) [facility] Ketones Test strip Ql (U)Ord ered By: Zev Tucker on 08-12-2025 Ketones Ql (U) 150 mg/dl Negative [facility] Lactic Acidon 08-12-2025 Lactate [Moles/Vol] 1.7 mmol/L Normal 0.0-2.0 [facility] Comment on above: Order Comment: Y Performed By: #### L 501.6901, L503.6005 ####[facility] [address] [place], [place], [address] Lipaseon 08-12-2025 Lipase [Catalytic activity/Vol] 1130 U/L High 13-75 [facility] Comment on above: Result Comment: Lucie schultz note:LIPASE revised reference range effective 23.New Lipase methodology. Expected to produce lower valuesthan the previous assay method.NEW Reference Range: 13 - 75 U/L Performed By: #### L 100.0100, L501.2450, L500.4050 ####[facility] [address] [place], [address] M100.019on 08-12-2025 M100.019 Negative Normal [facility] Comment on above: Performed By: #### M 100.019 ####[facility] [address] [place], [address] M100.677on 08-12-2025 M100.677 Negative Normal [facility] Comment on above: Performed By: #### M 100.678, M100.677 ####[facility] [address] [place], [address] M100.678on 08-12-2025 M100.678 Pending SARS-CoV-2 (COVID 19) Negative INFLUENZA A Negative INFLUENZA B Negative RSV PCR Negative Normal [facility] Comment on above: Performed By: #### M 100.678, M100.677 ####[facility] [address] [place], [address] M8200.1000on 08-12-2025 M8200.1000 Normal Reference Ran ge = Negative MRSA DNA Nose Ql ALLEY+probe GeneXpert Instrument, PCR method MRSA PCR MRSA NEGATIVE Normal [facility] Comment on above: Performed By: #### M 8200.1000 ####[facility] [address] [place], [address] MCV (mean corpuscular volume ) determinationOrdered By: Wellington Rader on 08-12-2025 MCV (RBC) [Entitic vol] 102.0 fL High 81-99 [facility] Mean corpuscular hemoglobin (MCH) determinationOrdered By: Wellington Rader on 08-12-2025 MCH (RBC) [Entitic mass] 34.8 pg High 27.0-32.0 [facility] Measurement, pHOrdered By: Pia Rader on 08-12-2025 pH (Unsp spec) 7.56 [pH] High 7.35-7.45 [facility] Mucus LM Ql (Urine sed)Order ed By: Zev Tucker on 08-12-2025 Mucus Ql (Urine sed) 0 SEEN /hpf [facility] Nasal methicillin resistant Staphylococcus aureus (MRSA) DNA detection by PCROrdered By: Zev Tucker on 08-12-2025 MRSA DNA ALLEY+probe Ql (Nose) [facility] Nitrite Test strip Ql (U)Ord ered By: Zev Tucker on 08-12-2025 Nitrite Ql (U) Negative Negative [facility] No Panel InformationOrdered By: Wellington Rader on 08-12-2025 GELACIO [facility] Not entered [facility] Not entered [facility] 408 U/L High <32 [facility] Phosphoruson 08-12-2025 Phosphate [Mass/Vol] 0.8 mg/dL Invalid Interpretation Code 2.7-4.5 [facility] Comment on above: Result Comment: Crit ical Result(s) Called GWYCOFF at: 2111 by:MINH??Results read back by same. Performed By: #### L 500.2500, L501.2300, M200.1000 ####[facility] [address] [place], [place], [address] Platelet countOrdered By: Penny Rader on 08-12-2025 Platelets (Bld) [#/Vol] 181 10*3/uL 150-450 [facility] Platelet estimateOrdered By: Wellington Rader on 08-12-2025 Platelets LM Ql (Bld) ADEQUATE ADEQ [facility] Potassium measurement (mass/ volume)Ordered By: Wellington Rader on 08-12-2025 Potassium (Unsp spec) [Mass/Vol] 3.1 mmol/L Low 3.3-5.1 [facility] ,Serum,hCG Quali.on 08-12-2025 HCG, SERUM QUAL Negative Normal [facility] Comment on above: Performed By: #### L 700.6800 ####[facility] [address] [place], [place], [address] Protein Test strip Ql (U)Ord ered By: Zev Tucker on 08-12-2025 Protein Ql (U) 100 mg/dl High Negative [facility] RBC Auto (Bld) [#/Vol]Ordere d By: Wellington Rader on 08-12-2025 RBC (Bld) [#/Vol] 4.05 10*6/uL Low 4.2-5.4 [facility] Pybp-ovy-2Qusnlex By: Rajesh Tucker on 08-12-2025 SARS-CoV-2 (COVID-19) RNA ALLEY+probe Ql (Unsp spec) [facility] Serum beta-hCG test, qualita tiveOrdered By: Wellington Rader on 08-12-2025 Beta HCG ( test) Ql Negative [facility] Serum creatinine measurement (mass/volume)Ordered By: Wellington Rader on 08-12-2025 Creatinine [Mass/Vol] 1.82 mg/dL High 0.70-1.20 [facility] Serum globulin measurementOr dered By: Wellington Rader on 08-12-2025 Globulin (S) [Mass/Vol] 3.6 g/dL 2.2-4.2 [facility] Serum glucose measurement (m ass/volume)Ordered By: Wellington Rader on 08-12-2025 Glucose [Mass/Vol] 300 mg/dL High 70-99 [facility] Serum or plasma alanine wilkerson otransferase (ALT) measurementOrdered By: Wellington Rader on 08-12-2025 ALT [Catalytic activity/Vol] 108 U/L High <35 [facility] Serum or plasma albumin alphonso urement (mass/volume)Ordered By: Wellington Rader on 08-12-2025 Albumin [Mass/Vol] 4.6 g/dL 3.5-5.0 [facility] Serum or plasma albumin/glob ulin mass ratioOrdered By: Wellington Rader on 08-12-2025 Albumin/Globulin [Mass ratio] 1.3 {ratio} 0.9-2.4 [facility] Serum or plasma alkaline trinity sphatase measurementOrdered By: Wellington Rader on 08-12-2025 ALP [Catalytic activity/Vol] 135 U/L High 35-104 [facility] Serum or plasma calcium alphonso urement (mass/volume)Ordered By: Wellington Rader on 08-12-2025 Calcium [Mass/Vol] 9.2 mg/dL 7.6-11.0 [facility] Serum or plasma urea nitroge n measurement (mass/volume)Ordered By: Wellington Rader on 08-12-2025 Urea nitrogen [Mass/Vol] 20 mg/dL High 4-19 [facility] Sodium levelOrdered By: Dontae Rader on 08-12-2025 Sodium [Moles/Vol] 139 mmol/L 133-145 [facility] Squamous epithelial cells de tection in urine sediment by light microscopyOrdered By: Zev Tucker on 08-12-2025 Epithelial cells.squamous LM Ql (Urine sed) 0-5 SEEN /hpf 5-10 [facility] Strep pneumoniae Antig(UR,CS F)on 08-12-2025 STPAG Normal [facility] Comment on above: Performed By: #### M 100.2200, M300.4600 ####[facility] [address] [place], [place], [id number] Streptococcus pyogenes rRNA detection in throat by DNA probeOrdered By: Wellington Rader on 08-12-2025 S. pyogenes rRNA Probe Ql (Throat) [facility] Total carbon dioxide measure mentOrdered By: Wellington Rader on 08-12-2025 CO2 [Moles/Vol] 23 mmol/L [facility] Total cell countOrdered By: Wellington Rader on 08-12-2025 Cells counted [employer] (Bld/Tiss) [#] 100 MANUAL DIFF [facility] Total proteinOrdered By: Jimbo Rader on 08-12-2025 Protein [Mass/Vol] 8.3 g/dL 5.9-8.4 [facility] Urinalysis, Completeon 08-12 EPI,SQUAMOUS 0-5 SEEN Normal 5-10 [facility] Comment on above: Order Comment: CLEAN CATCH Performed By: #### L 400.0001 ####[facility] [address] [place], [address] RBC 5-10 SEEN Normal 0-5 [facility] Comment on above: Order Comment: CLEAN CATCH Performed By: #### L 400.0001 ####[facility] [id number] [place], [address] WBC 0-5 SEEN Normal 0-5 [facility] Comment on above: Order Comment: CLEAN CATCH Performed By: #### L [id number] ####[facility] [id number] [place], [address] BACTERIA 0 SEEN Normal None Seen [facility] Comment on above: Order Comment: CLEAN CATCH Performed By: #### L [id number] ####[facility] [id number] [place], [address] Mucus Ql (Urine sed) [address] [facility] Comment on above: Order Comment: CLEAN CATCH Performed By: #### L 400.0001 ####[facility] [address] [place], [place], [id number] Urine clarityOrdered By: Candice Tucker on 08-12-2025 Clarity (U) Clear Clear [facility] Urine color determinationOrd ered By: Zev Tucker on 08-12-2025 Color (U) Yellow Yellow [facility] Urine cultureOrdered By: Candice Tucker on 08-12-2025 Bacteria identified Cx Nom (U) Mixed Gram Pos & Gram Neg Org Abnormal [facility] Urine glucose detectionOrder ed By: Zev Tucker on 08-12-2025 Glucose Ql (U) 50 mg/dl High Normal [facility] Urine leukocyte esterase det ection by dipstickOrdered By: Zev Tucker on 08-12-2025 Leukocyte esterase Test strip Ql (U) Negative Negative [facility] Urine pHOrdered By: Zev Tucker on 08-12-2025 pH (U) 6.5 [pH] 5.0 - 8.0 [facility] Urine sediment bacteria coun t by microscopy (number/high power field)Ordered By: Zev Tucker on 08-12-2025 Bacteria LM.HPF (Urine sed) [#/Area] 0 /[HPF] None Seen [facility] Urine specific gravity measu rementOrdered By: Zev Tucker on 08-12-2025 Specific gravity (U) [Rel density] 1.010 1.002-1.030 [facility] Urine urobilinogen measureme ntOrdered By: Zev Tucker on 08-12-2025 Urobilinogen Ql (U) 4 mg/dl High Normal [facility] Venous Blood Gason Blood Gas Type GELACIO Normal [facility] Comment on above: Performed By: #### L 9000.0810 ####[facility] [address] [place], [address] CO2 [Moles/Vol] 26 mmol/L Normal 23-33 [facility] Comment on above: Performed By: #### L 9000.0810 ####[facility] [address] [place], [address] HCO3 (Bld) [Moles/Vol] 25 mmol/L Normal 22-26 [facility] Comment on above: Performed By: #### L 9000.0810 ####[facility] [address] [place], [address] O2 Delivery Dev Not entered [facility] Comment on above: Performed By: #### L 9000.0810 ####[facility] [address] [place], [address] SITE Not entered [facility] Comment on above: Performed By: #### L 9000.0810 ####[facility] [address] [place], [address] VBG BE 2 mmol/L Normal -1.0-3.5 [facility] Comment on above: Performed By: #### L 9000.0810 ####[facility] [address] [place], [address] VBG pCO2 32.2 mmHg Low 41-51 [facility] Comment on above: Performed By: #### L 9000.0810 ####[facility] [address] [place], [address] VBG pH 7.49 High 7.32-7.42 [facility] Comment on above: Performed By: #### L 9000.0810 ####[facility] [address] [place], [place], [address] VBG PO2 52 mmHg High 25-40 [facility] Comment on above: Performed By: #### L 9000.0810 ####[facility] [address] [place], [address] VBG SO2 90 High 50-70 [facility] Comment on above: Performed By: #### L 9000.0810 ####[facility] [address] [place], [place], [address] Venous blood base excess alexis surementOrdered By: Wellington Rader on 08-12-2025 Base excess Calc (BldV) [Moles/Vol] 2 mmol/L -1.0-3.5 [facility] Venous blood bicarbonate alexis surementOrdered By: Wellington Rader on 08-12-2025 HCO3 (Bld) [Moles/Vol] 25 mmol/L 22-26 [facility] Venous blood pH measurementO rdered By: Wellington Rader on 08-12-2025 pH (BldV) 7.49 [pH] High 7.32-7.42 [facility] Venous blood partial pressur e of carbon dioxide measurementOrdered By: Wellington Rader on 08-12-2025 CO2 (BldV) [Partial pressure] 32.2 mm[Hg] Low 41-51 [facility] Venous blood partial pressur e of oxygen measurementOrdered By: Wellington Rader on 08-12-2025 Oxygen (BldV) [Partial pressure] 52 mm[Hg] High 25-40 [facility] White blood cell (WBC) count Ordered By: Wellington Rader on 08-12-2025 WBC (Bld) [#/Vol] 11.8 10*3/uL High 4.4-11.0 [facility] White blood cell countOrdere d By: Zev Tucker on 08-12-2025 White blood cell count 0-5 SEEN /hpf 0-5 [facility] CBC W/Diff, Automatedon 08-2 4-2025 Absolute Neut Normal 2.0-7.7 [facility] Comment on above: Result Comment: Canc elled via OM: Order cancelled - Patient discharged Performed By: #### L 100.0100, L500.4050 ####[facility] [address] [place], [address] HCT Normal 37-47 [facility] Comment on above: Result Comment: Canc elled via OM: Order cancelled - Patient discharged Performed By: #### L 100.0100, L500.4050 ####[facility] [address] [place], [address] HGB Normal 12.0-15.0 [facility] Comment on above: Result Comment: Canc elled via OM: Order cancelled - Patient discharged Performed By: #### L 100.0100, L500.4050 ####[facility] [address] [place], [address] MCH Normal 27.0-32.0 [facility] Comment on above: Result Comment: Canc elled via OM: Order cancelled - Patient discharged Performed By: #### L 100.0100, L500.4050 ####[facility] [address] [place], [address] MCHC Normal 32-36 [facility] Comment on above: Result Comment: Canc elled via OM: Order cancelled - Patient discharged Performed By: #### L 100.0100, L500.4050 ####[facility] [address] [place], [address] MCV Normal 81-99 [facility] Comment on above: Result Comment: Canc elled via OM: Order cancelled - Patient discharged Performed By: #### L 100.0100, L500.4050 ####[facility] [address] [place], [address] NEUT% Normal 47-70 [facility] Comment on above: Result Comment: Canc elled via OM: Order cancelled - Patient discharged Performed By: #### L 100.0100, L500.4050 ####[facility] [address] [place], [address] PLT Normal 150-450 [facility] Comment on above: Result Comment: Canc elled via OM: Order cancelled - Patient discharged Performed By: #### L 100.0100, L500.4050 ####[facility] [address] [place], [address] RBC Normal 4.2-5.4 [facility] Comment on above: Result Comment: Canc elled via OM: Order cancelled - Patient discharged Performed By: #### L 100.0100, L500.4050 ####[facility] [address] [place], [address] RDW CV Normal 11.6-14.6 [facility] Comment on above: Result Comment: Canc elled via OM: Order cancelled - Patient discharged Performed By: #### L 100.0100, L500.4050 ####[facility] [address] [place], [address] RDW SD Normal 35.1-43.9 [facility] Comment on above: Result Comment: Canc elled via OM: Order cancelled - Patient discharged Performed By: #### L 100.0100, L500.4050 ####[facility] [address] [place], [address] WBC Normal 4.4-11.0 [facility] Comment on above: Result Comment: Canc elled via OM: Order cancelled - Patient discharged Performed By: #### L 100.0100, L500.4050 ####[facility] [address] [place], [address] Comprehensive Metabolic Prof ilon 07-22-2025 ALB Normal 3.5-5.0 [facility] Comment on above: Result Comment: Canc elled via OM: Order cancelled - Patient discharged Performed By: #### L 100.0100, L500.4050 ####[facility] [address] [place], [address] ALK PHOS Normal 35-104 [facility] Comment on above: Result Comment: Canc elled via OM: Order cancelled - Patient discharged Performed By: #### L 100.0100, L500.4050 ####[facility] [address] [place], [address] ALT Normal <=34 [facility] Comment on above: Result Comment: Canc elled via OM: Order cancelled - Patient discharged Performed By: #### L 100.0100, L500.4050 ####[facility] [address] [place], [address] AST Normal <=31 [facility] Comment on above: Result Comment: Canc elled via OM: Order cancelled - Patient discharged Performed By: #### L 100.0100, L500.4050 ####[facility] [address] [place], [address] BUN Normal 4-19 [facility] Comment on above: Result Comment: Canc elled via OM: Order cancelled - Patient discharged Performed By: #### L 100.0100, L500.4050 ####[facility] [address] [place], [address] BUN/CRE Normal 10-20 [facility] Comment on above: Result Comment: Canc elled via OM: Order cancelled - Patient discharged Performed By: #### L 100.0100, L500.4050 ####[facility] [address] [place], [address] Calcium Normal 7.6-11.0 [facility] Comment on above: Result Comment: Canc elled via OM: Order cancelled - Patient discharged Performed By: #### L 100.0100, L500.4050 ####[facility] [address] [place], [address] CL Normal 98-108 [facility] Comment on above: Result Comment: Canc elled via OM: Order cancelled - Patient discharged Performed By: #### L 100.0100, L500.4050 ####[facility] [address] [place], [address] CO2 Normal 21.0-32.0 [facility] Comment on above: Result Comment: Canc elled via OM: Order cancelled - Patient discharged Performed By: #### L 100.0100, L500.4050 ####[facility] [address] [place], [address] CREAT,SERUM Normal 0.70-1.20 [facility] Comment on above: Result Comment: Canc elled via OM: Order cancelled - Patient discharged Performed By: #### L 100.0100, L500.4050 ####[facility] [address] [place], [address] eGFR Normal >60 [facility] Comment on above: Result Comment: Canc elled via OM: Order cancelled - Patient discharged Performed By: #### L 100.0100, L500.4050 ####[facility] [address] [place], [address] GAP Normal 5-15 [facility] Comment on above: Result Comment: Canc elled via OM: Order cancelled - Patient discharged Performed By: #### L 100.0100, L500.4050 ####[facility] [address] [place], [address] GLU Normal 70-99 [facility] Comment on above: Result Comment: Canc elled via OM: Order cancelled - Patient discharged Performed By: #### L 100.0100, L500.4050 ####[facility] [address] [place], [address] Potassium Normal 3.3-5.1 [facility] Comment on above: Result Comment: Canc elled via OM: Order cancelled - Patient discharged Performed By: #### L 100.0100, L500.4050 ####[facility] [address] [place], [address] T BILI Normal 0.00-1.30 [facility] Comment on above: Result Comment: Canc elled via OM: Order cancelled - Patient discharged Performed By: #### L 100.0100, L500.4050 ####[facility] [address] [place], [address] T PROT Normal 5.9-8.4 [facility] Comment on above: Result Comment: Canc elled via OM: Order cancelled - Patient discharged Performed By: #### L 100.0100, L500.4050 ####[facility] [address] [place], [address] Comprehensive Metabolic Profil Normal 133-145 [facility] Comment on above: Result Comment: Canc elled via OM: Order cancelled - Patient discharged Performed By: #### L 100.0100, L500.4050 ####[facility] [address] [place], [address] CBC W/Diff, Automatedon 08-2 Absolute Neut Normal 2.0-7.7 [facility] Comment on above: Result Comment: Canc elled via OM: Order cancelled - Patient discharged Performed By: #### L 100.0100, L500.4050 ####[facility] [address] [place], [address] HCT Normal 37-47 [facility] Comment on above: Result Comment: Canc elled via OM: Order cancelled - Patient discharged Performed By: #### L 100.0100, L500.4050 ####[facility] [address] [place], [address] HGB Normal 12.0-15.0 [facility] Comment on above: Result Comment: Canc elled via OM: Order cancelled - Patient discharged Performed By: #### L 100.0100, L500.4050 ####[facility] [address] [place], [address] MCH Normal 27.0-32.0 [facility] Comment on above: Result Comment: Canc elled via OM: Order cancelled - Patient discharged Performed By: #### L 100.0100, L500.4050 ####[facility] [address] [place], [address] MCHC Normal 32-36 [facility] Comment on above: Result Comment: Canc elled via OM: Order cancelled - Patient discharged Performed By: #### L 100.0100, L500.4050 ####[facility] [address] [place], [address] MCV Normal 81-99 [facility] Comment on above: Result Comment: Canc elled via OM: Order cancelled - Patient discharged Performed By: #### L 100.0100, L500.4050 ####[facility] [address] [place], [address] NEUT% Normal 47-70 [facility] Comment on above: Result Comment: Canc elled via OM: Order cancelled - Patient discharged Performed By: #### L 100.0100, L500.4050 ####[facility] [address] [place], [address] PLT Normal 150-450 [facility] Comment on above: Result Comment: Canc elled via OM: Order cancelled - Patient discharged Performed By: #### L 100.0100, L500.4050 ####[facility] [address] [place], [address] RBC Normal 4.2-5.4 [facility] Comment on above: Result Comment: Canc elled via OM: Order cancelled - Patient discharged Performed By: #### L 100.0100, L500.4050 ####[facility] [address] [place], [address] RDW CV Normal 11.6-14.6 [facility] Comment on above: Result Comment: Canc elled via OM: Order cancelled - Patient discharged Performed By: #### L 100.0100, L500.4050 ####[facility] [address] [place], [address] RDW SD Normal 35.1-43.9 [facility] Comment on above: Result Comment: Canc elled via OM: Order cancelled - Patient discharged Performed By: #### L 100.0100, L500.4050 ####[facility] [address] [place], [address] WBC Normal 4.4-11.0 [facility] Comment on above: Result Comment: Canc elled via OM: Order cancelled - Patient discharged Performed By: #### L 100.0100, L500.4050 ####[facility] [address] [place], [address] Comprehensive Metabolic Prof ilon 07-21-2025 ALB Normal 3.5-5.0 [facility] Comment on above: Result Comment: Canc elled via OM: Order cancelled - Patient discharged Performed By: #### L 100.0100, L500.4050 ####[facility] [address] [place], [address] ALK PHOS Normal 35-104 [facility] Comment on above: Result Comment: Canc elled via OM: Order cancelled - Patient discharged Performed By: #### L 100.0100, L500.4050 ####[facility] [address] [place], [address] ALT Normal <=34 [facility] Comment on above: Result Comment: Canc elled via OM: Order cancelled - Patient discharged Performed By: #### L 100.0100, L500.4050 ####[facility] [address] [place], [address] AST Normal <=31 [facility] Comment on above: Result Comment: Canc elled via OM: Order cancelled - Patient discharged Performed By: #### L 100.0100, L500.4050 ####[facility] [address] [place], [address] BUN Normal 4-19 [facility] Comment on above: Result Comment: Canc elled via OM: Order cancelled - Patient discharged Performed By: #### L 100.0100, L500.4050 ####[facility] [address] [place], [address] BUN/CRE Normal 10-20 [facility] Comment on above: Result Comment: Canc elled via OM: Order cancelled - Patient discharged Performed By: #### L 100.0100, L500.4050 ####[facility] [address] [place], [address] Calcium Normal 7.6-11.0 [facility] Comment on above: Result Comment: Canc elled via OM: Order cancelled - Patient discharged Performed By: #### L 100.0100, L500.4050 ####[facility] [address] [place], [address] CL Normal 98-108 [facility] Comment on above: Result Comment: Canc elled via OM: Order cancelled - Patient discharged Performed By: #### L 100.0100, L500.4050 ####[facility] [address] [place], [address] CO2 Normal 21.0-32.0 [facility] Comment on above: Result Comment: Canc elled via OM: Order cancelled - Patient discharged Performed By: #### L 100.0100, L500.4050 ####[facility] [address] [place], [address] CREAT,SERUM Normal 0.70-1.20 [facility] Comment on above: Result Comment: Canc elled via OM: Order cancelled - Patient discharged Performed By: #### L 100.0100, L500.4050 ####[facility] [address] [place], [address] eGFR Normal >60 [facility] Comment on above: Result Comment: Canc elled via OM: Order cancelled - Patient discharged Performed By: #### L 100.0100, L500.4050 ####[facility] [address] [place], [address] GAP Normal 5-15 [facility] Comment on above: Result Comment: Canc elled via OM: Order cancelled - Patient discharged Performed By: #### L 100.0100, L500.4050 ####[facility] [address] [place], [address] GLU Normal 70-99 [facility] Comment on above: Result Comment: Canc elled via OM: Order cancelled - Patient discharged Performed By: #### L 100.0100, L500.4050 ####[facility] [address] [place], [address] Potassium Normal 3.3-5.1 [facility] Comment on above: Result Comment: Canc elled via OM: Order cancelled - Patient discharged Performed By: #### L 100.0100, L500.4050 ####[facility] [address] [place], [address] T BILI Normal 0.00-1.30 [facility] Comment on above: Result Comment: Canc elled via OM: Order cancelled - Patient discharged Performed By: #### L 100.0100, L500.4050 ####[facility] [address] [place], [address] T PROT Normal 5.9-8.4 [facility] Comment on above: Result Comment: Canc elled via OM: Order cancelled - Patient discharged Performed By: #### L 100.0100, L500.4050 ####[facility] [address] [place], [address] Comprehensive Metabolic Profil Normal 133-145 [facility] Comment on above: Result Comment: Canc elled via OM: Order cancelled - Patient discharged Performed By: #### L 100.0100, L500.4050 ####[facility] [address] [place], [address] Absolute lymphocyte countOrd ered By: Canelo Myers on 07-20-2025 Lymphocytes Auto (Unsp spec) [#/Vol] 0.83 10*3/uL 0.83-4.51 [facility] Anion gap in Serum or Plasma Ordered By: Canelo Myers on 07-20-2025 Anion gap [Moles/Vol] 10 mmol/L 5-15 [facility] Automated lymphocyte count a s percentage of total leukocytesOrdered By: Canelo Myers on 07-20-2025 Lymphocytes/100 WBC Auto (Unsp spec) 19.5 % 19-41 [facility] BUN/creatinine ratioOrdered By: Canelo Myers on 07-20-2025 Urea nitrogen/Creatinine [Mass ratio] 10.1 mg/mg 10-20 [facility] Basophil percentageOrdered B y: Canelo Myers on 07-20-2025 Basophils/100 WBC (Bld) 0.2 % 0-1 [facility] Bedside Glucoseon 07-20-2025 FINGERSTICK GLU 217 mg/dL High 74-106 [facility] Comment on above: Result Comment: CHAUNCEY WOODENT OF PATIENT CARE PER NURSING PROTOCOL Performed By: #### L 501.080 ####[facility] [address] [place], [address] FINGERSTICK GLU 111 mg/dL High 74-106 [facility] Comment on above: Result Comment: CHAUNCEY RIZO OF PATIENT CARE PER NURSING PROTOCOL Performed By: #### L 501.080 ####[facility] [address] [place], [address] Bilirubin, totalOrdered By: Canelo Myers on 07-20-2025 Bilirubin [Mass/Vol] 0.86 mg/dL 0.00-1.30 [facility] CBC W/Diff, Automatedon 06-30 Absolute Lymph 0.83 X10 3/uL Normal 0.83-4.51 [facility] Comment on above: Performed By: #### L 100.0100, L500.4050 ####[facility] [address] [place], [address] Absolute Neut 2.8 X10 3/uL Normal 2.0-7.7 [facility] Comment on above: Performed By: #### L 100.0100, L500.4050 ####[facility] [address] [place], [address] Basophils/100 WBC (Bld) 0.2 % Normal 0-1 [facility] Comment on above: Performed By: #### L 100.0100, L500.4050 ####[facility] [address] [place], [address] Eosinophils/100 WBC (Bld) 1.6 % Normal 0-5 [facility] Comment on above: Performed By: #### L 100.0100, L500.4050 ####[facility] [address] [place], [address] Erythrocyte distribution width (RBC) [Ratio] 15.2 % High 11.6-14.6 [facility] Comment on above: Performed By: #### L 100.0100, L500.4050 ####[facility] [address] [place], [address] Hematocrit (Bld) [Volume fraction] 29.2 % Low 37-47 [facility] Comment on above: Performed By: #### L 100.0100, L500.4050 ####[facility] [address] [place], [address] Hemoglobin (Bld) [Mass/Vol] 9.6 g/dL Low 12.0-15.0 [facility] Comment on above: Performed By: #### L 100.0100, L500.4050 ####[facility] [address] [place], [address] IG% 0.200 Normal 0.0-0.9 [facility] Comment on above: Result Comment: IG% - Immature Granulocytes (promyelocytes, myelocytes andmetamyelocytes) > 1% indicates that a LEFT SHIFT is Present. Performed By: #### L 100.0100, L500.4050 ####[facility] [address] [place], [address] Lymphocytes/100 WBC (Bld) 19.5 % Normal 19-41 [facility] Comment on above: Performed By: #### L 100.0100, L500.4050 ####[facility] [address] [place], [address] MCH (RBC) [Entitic mass] 33.8 pg High 27.0-32.0 [facility] Comment on above: Performed By: #### L 100.0100, L500.4050 ####[facility] [address] [place], [address] MCHC (RBC) [Mass/Vol] 32.9 g/dL Normal 32-36 [facility] Comment on above: Performed By: #### L 100.0100, L500.4050 ####[facility] [address] [place], [address] MCV (RBC) [Entitic vol] 102.8 fL High 81-99 [facility] Comment on above: Performed By: #### L 100.0100, L500.4050 ####[facility] [address] [place], [address] Monocytes/100 WBC (Bld) 11.8 % High 0-10 [facility] Comment on above: Performed By: #### L 100.0100, L500.4050 ####[facility] [address] [place], [address] Neutrophils/100 WBC (Bld) 66.7 % Normal 47-70 [facility] Comment on above: Performed By: #### L 100.0100, L500.4050 ####[facility] [address] [place], [address] Nucleated RBC (Bld) [#/Vol] 0 10*3/uL Normal 0-5 [facility] Comment on above: Performed By: #### L 100.0100, L500.4050 ####[facility] [address] [place], [address] Platelet mean volume (Bld) [Entitic vol] 10.9 fL Normal 6.2-12.0 [facility] Comment on above: Performed By: #### L 100.0100, L500.4050 ####[facility] [address] [place], [address] Platelets (Bld) [#/Vol] 114 10*3/uL Low 150-450 [facility] Comment on above: Performed By: #### L 100.0100, L500.4050 ####[facility] [address] [place], [address] RBC (Bld) [#/Vol] 2.84 10*6/uL Low 4.2-5.4 [facility] Comment on above: Performed By: #### L 100.0100, L500.4050 ####[facility] [address] [place], [address] RDW SD 57.6 fl High 35.1-43.9 [facility] Comment on above: Performed By: #### L 100.0100, L500.4050 ####[facility] [address] [place], [address] WBC (Bld) [#/Vol] 4.3 10*3/uL Low 4.4-11.0 [facility] Comment on above: Performed By: #### L 100.0100, L500.4050 ####[facility] [address] [place], [address] Carbon dioxide, total [Moles /volume] in Central venous bloodOrdered By: Canelo Myers on 07-20-2025 CO2 [Moles/Vol] 27.0 mmol/L 21.0-32.0 [facility] Chloride assayOrdered By: Henrry Myers on 07-20-2025 Chloride [Moles/Vol] 103 mmol/L 98-108 [facility] Comprehensive Metabolic Prof ilon 07-20-2025 Albumin [Mass/Vol] 3.0 g/dL Low 3.5-5.0 [facility] Comment on above: Performed By: #### L 100.0100, L500.4050 ####[facility] [address] [place], [address] Albumin/Globulin [Mass ratio] 1.4 {ratio} Normal 0.9-2.4 [facility] Comment on above: Performed By: #### L 100.0100, L500.4050 ####[facility] [address] [place], [address] ALK PHOS 134 U/L High 35-104 [facility] Comment on above: Performed By: #### L 100.0100, L500.4050 ####[facility] [address] [place], [address] ALT [Catalytic activity/Vol] 114 U/L High <=34 [facility] Comment on above: Performed By: #### L 100.0100, L500.4050 ####[facility] [address] [place], [address] AST [Catalytic activity/Vol] 136 U/L High <=31 [facility] Comment on above: Performed By: #### L 100.0100, L500.4050 ####[facility] [address] [place], [address] Bilirubin [Mass/Vol] 0.86 mg/dL Normal 0.00-1.30 [facility] Comment on above: Performed By: #### L 100.0100, L500.4050 ####[facility] [address] [place], [address] BUN/CRE 10.1 RATIO Normal 10-20 [facility] Comment on above: Performed By: #### L 100.0100, L500.4050 ####[facility] [address] [place], [address] Calcium [Mass/Vol] 7.6 mg/dL Normal 7.6-11.0 [facility] Comment on above: Performed By: #### L 100.0100, L500.4050 ####[facility] [address] [place], [address] Chloride [Moles/Vol] 103 mmol/L Normal 98-108 [facility] Comment on above: Performed By: #### L 100.0100, L500.4050 ####[facility] [address] [place], [address] CO2 [Moles/Vol] 27.0 mmol/L Normal 21.0-32.0 [facility] Comment on above: Performed By: #### L 100.0100, L500.4050 ####[facility] [address] [place], [address] Creatinine [Mass/Vol] 0.40 mg/dL Low 0.70-1.20 [facility] Comment on above: Performed By: #### L 100.0100, L500.4050 ####[facility] [address] [place], [address] ECRCL 148.53 ml/min Normal 50-250 [facility] Comment on above: Performed By: #### L 100.0100, L500.4050 ####[facility] [address] [place], [address] GAP 10 Normal 5-15 [facility] Comment on above: Performed By: #### L 100.0100, L500.4050 ####[facility] [address] [place], [address] GFR/1.73 sq M.predicted among non-blacks MDRD (S/P/Bld) [Vol rate/Area] 122 mL/min/{1.73_m2} Normal >60 [facility] Comment on above: Result Comment: mL/m in/1.73m2 CKD-EPI Creatinine Equation (2020) Performed By: #### L 100.0100, L500.4050 ####[facility] [address] [place], [address] Globulin (S) [Mass/Vol] 2.1 g/dL Low 2.2-4.2 [facility] Comment on above: Performed By: #### L 100.0100, L500.4050 ####[facility] [address] [place], [address] Glucose [Mass/Vol] 107 mg/dL High 70-99 [facility] Comment on above: Performed By: #### L 100.0100, L500.4050 ####[facility] [address] [place], [address] Potassium [Moles/Vol] 3.6 mmol/L Normal 3.3-5.1 [facility] Comment on above: Performed By: #### L 100.0100, L500.4050 ####[facility] [address] [place], [address] Sodium [Moles/Vol] 140 mmol/L Normal 133-145 [facility] Comment on above: Performed By: #### L 100.0100, L500.4050 ####[facility] [address] [place], [address] T PROT 5.1 g/dL Low 5.9-8.4 [facility] Comment on above: Performed By: #### L 100.0100, L500.4050 ####[facility] [address] [place], [address] Urea nitrogen [Mass/Vol] 4 mg/dL Normal 4-19 [facility] Comment on above: Performed By: #### L 100.0100, L500.4050 ####[facility] [address] [place], [address] Eosinophil percentageOrdered By: Canelo Myers on 07-20-2025 Eosinophils/100 WBC (Bld) 1.6 % 0-5 [facility] Erythrocyte distribution wid th ratioOrdered By: Canelo Myers on 07-20-2025 Erythrocyte distribution width (RBC) [Ratio] 15.2 % High 11.6-14.6 [facility] Erythrocyte distribution wid th standard deviationOrdered By: Canelo Myers on 07-20-2025 Erythrocyte distribution width (RBC) [Ratio] 57.6 fl High 35.1-43.9 [facility] Glomerular filtration rate ( GFR) estimation/1.73 sq m using serum, plasma, or whole bOrdered By: Canelo Myers on 07-20-2025 GFR/1.73 sq M.predicted among non-blacks MDRD (S/P/Bld) [Vol rate/Area] 122 mL/min/{1.73_m2} >60 [facility] deOrdered By: Canelo Myers on 07-20-2025 Glucose [Mass/Vol] 217 mg/dL High 74-106 [facility] Hematocrit Auto (Bld) [Volum e fraction]Ordered By: Canelo Myers on 07-20-2025 Hematocrit (Bld) [Volume fraction] 29.2 % Low 37-47 [facility] Hemoglobin measurementOrdere d By: Canelo Myers on 07-20-2025 Hemoglobin (Bld) [Mass/Vol] 9.6 g/dL Low 12.0-15.0 [facility] Immature granulocytes/100 WB C Auto (Bld)Ordered By: Canelo Myers on 07-20-2025 Immature granulocytes/100 WBC (Bld) 0.200 % 0.0-0.9 [facility] MCV (mean corpuscular volume ) determinationOrdered By: Canelo Myers on 07-20-2025 MCV (RBC) [Entitic vol] 102.8 fL High 81-99 [facility] Mean corpuscular hemoglobin (MCH) determinationOrdered By: Canelo Myers on 07-20-2025 MCH (RBC) [Entitic mass] 33.8 pg High 27.0-32.0 [facility] Monocyte percentageOrdered B y: Canelo Myers on 07-20-2025 Monocytes/100 WBC (Bld) 11.8 % High 0-10 [facility] Neutrophil percentageOrdered By: Canelo Myers on 07-20-2025 Neutrophils/100 WBC (Bld) 66.7 % 47-70 [facility] No Panel InformationOrdered By: Canelo Myers on 07-20-2025 136 U/L High <32 [facility] Platelet countOrdered By: Henrry Myers on 07-20-2025 Platelets (Bld) [#/Vol] 114 10*3/uL Low 150-450 [facility] Potassium measurement (mass/ volume)Ordered By: Canelo Myers on 07-20-2025 Potassium (Unsp spec) [Mass/Vol] 3.6 mmol/L 3.3-5.1 [facility] RBC Auto (Bld) [#/Vol]Ordere d By: Canelo Myers on 07-20-2025 RBC (Bld) [#/Vol] 2.84 10*6/uL Low 4.2-5.4 [facility] Serum creatinine measurement (mass/volume)Ordered By: Canelo Myers on 07-20-2025 Creatinine [Mass/Vol] 0.40 mg/dL Low 0.70-1.20 [facility] Serum globulin measurementOr dered By: Canelo Myers on 07-20-2025 Globulin (S) [Mass/Vol] 2.1 g/dL Low 2.2-4.2 [facility] Serum glucose measurement (m ass/volume)Ordered By: Canelo Myers on 07-20-2025 Glucose [Mass/Vol] 107 mg/dL High 70-99 [facility] Serum or plasma alanine wilkerson otransferase (ALT) measurementOrdered By: Canelo Myers on 07-20-2025 ALT [Catalytic activity/Vol] 114 U/L High <35 [facility] Serum or plasma albumin alphonso urement (mass/volume)Ordered By: Canelo Myers on 07-20-2025 Albumin [Mass/Vol] 3.0 g/dL Low 3.5-5.0 [facility] Serum or plasma albumin/glob ulin mass ratioOrdered By: Canelo Myers on 07-20-2025 Albumin/Globulin [Mass ratio] 1.4 {ratio} 0.9-2.4 [facility] Serum or plasma alkaline trinity sphatase measurementOrdered By: Canelo Myers on 07-20-2025 ALP [Catalytic activity/Vol] 134 U/L High 35-104 [facility] Serum or plasma calcium alphonso urement (mass/volume)Ordered By: Canelo Myers on 07-20-2025 Calcium [Mass/Vol] 7.6 mg/dL 7.6-11.0 [facility] Serum or plasma urea nitroge n measurement (mass/volume)Ordered By: Canelo Myers on 07-20-2025 Urea nitrogen [Mass/Vol] 4 mg/dL 4-19 [facility] Sodium levelOrdered By: Ganesh Myers on 07-20-2025 Sodium [Moles/Vol] 140 mmol/L 133-145 [facility] Total proteinOrdered By: Guido Myers on 07-20-2025 Protein [Mass/Vol] 5.1 g/dL Low 5.9-8.4 [facility] White blood cell (WBC) count Ordered By: Canelo Myers on 07-20-2025 WBC (Bld) [#/Vol] 4.3 10*3/uL Low 4.4-11.0 [facility] Bedside Glucoseon 07-19-2025 FINGERSTICK GLU 121 mg/dL High 74-106 [facility] Comment on above: Result Comment: CHAUNCEY GEMENT OF PATIENT CARE PER NURSING PROTOCOL Performed By: #### L 501.080 ####[facility] [address] [place], [address] FINGERSTICK GLU 91 mg/dL Normal 74-106 [facility] Comment on above: Result Comment: CHAUNCEY GEMENT OF PATIENT CARE PER NURSING PROTOCOL Performed By: #### L 501.080 ####[facility] [address] [place], [address] FINGERSTICK GLU 140 mg/dL High 74-106 [facility] Comment on above: Result Comment: CHAUNCEY GEMENT OF PATIENT CARE PER NURSING PROTOCOL Performed By: #### L 501.080 ####[facility] [address] [place], [address] FINGERSTICK GLU 94 mg/dL Normal 74-106 [facility] Comment on above: Result Comment: CHAUNCEY GEMENT OF PATIENT CARE PER NURSING PROTOCOL Performed By: #### L 501.080 ####[facility] [address] [place], [address] CBC W/Diff, Automatedon - PLT EST SLT DEC Normal ADEQ [facility] Comment on above: Performed By: #### L 500.4050, L100.0100 ####[facility] [address] [place], [address] Comprehensive Metabolic Prof ilon 07-19-2025 Albumin [Mass/Vol] 3.0 g/dL Low 3.5-5.0 [facility] Comment on above: Performed By: #### L 500.4050, L100.0100 ####[facility] [address] [place], [address] Albumin/Globulin [Mass ratio] 1.4 {ratio} Normal 0.9-2.4 [facility] Comment on above: Performed By: #### L 500.4050, L100.0100 ####[facility] [address] [place], [address] ALK PHOS 133 U/L High 35-104 [facility] Comment on above: Performed By: #### L 500.4050, L100.0100 ####[facility] [address] [place], [address] ALT [Catalytic activity/Vol] 150 U/L High <=34 [facility] Comment on above: Performed By: #### L 500.4050, L100.0100 ####[facility] [address] [place], [address] AST [Catalytic activity/Vol] 289 U/L High <=31 [facility] Comment on above: Performed By: #### L 500.4050, L100.0100 ####[facility] [address] [place], [address] Bilirubin [Mass/Vol] 1.07 mg/dL Normal 0.00-1.30 [facility] Comment on above: Performed By: #### L 500.4050, L100.0100 ####[facility] [address] [place], [address] BUN/CRE 6.1 RATIO Low 10-20 [facility] Comment on above: Performed By: #### L 500.4050, L100.0100 ####[facility] [address] [place], [address] Calcium [Mass/Vol] 7.0 mg/dL Low 7.6-11.0 [facility] Comment on above: Performed By: #### L 500.4050, L100.0100 ####[facility] [address] [place], [address] Chloride [Moles/Vol] 98 mmol/L Normal 98-108 [facility] Comment on above: Performed By: #### L 500.4050, L100.0100 ####[facility] [address] [place], [address] CO2 [Moles/Vol] 25.2 mmol/L Normal 21.0-32.0 [facility] Comment on above: Performed By: #### L 500.4050, L100.0100 ####[facility] [address] [place], [address] Creatinine [Mass/Vol] 0.42 mg/dL Low 0.70-1.20 [facility] Comment on above: Performed By: #### L 500.4050, L100.0100 ####[facility] [address] [place], [address] ECRCL 141.45 ml/min Normal 50-250 [facility] Comment on above: Performed By: #### L 500.4050, L100.0100 ####[facility] [address] [place], [address] GAP 10 Normal 5-15 [facility] Comment on above: Performed By: #### L 500.4050, L100.0100 ####[facility] [address] [place], [address] GFR/1.73 sq M.predicted among non-blacks MDRD (S/P/Bld) [Vol rate/Area] 121 mL/min/{1.73_m2} Normal >60 [facility] Comment on above: Result Comment: mL/m in/1.73m2 CKD-EPI Creatinine Equation (2020) Performed By: #### L 500.4050, L100.0100 ####[facility] [address] [place], [address] Globulin (S) [Mass/Vol] 2.1 g/dL Low 2.2-4.2 [facility] Comment on above: Performed By: #### L 500.4050, L100.0100 ####[facility] [address] [place], [address] Glucose [Mass/Vol] 93 mg/dL Normal 70-99 [facility] Comment on above: Performed By: #### L 500.4050, L100.0100 ####[facility] [address] [place], [address] Potassium [Moles/Vol] 3.5 mmol/L Normal 3.3-5.1 [facility] Comment on above: Performed By: #### L 500.4050, L100.0100 ####[facility] [address] [place], [address] Sodium [Moles/Vol] 134 mmol/L Normal 133-145 [facility] Comment on above: Performed By: #### L 500.4050, L100.0100 ####[facility] [address] [place], [address] T PROT 5.0 g/dL Low 5.9-8.4 [facility] Comment on above: Performed By: #### L 500.4050, L100.0100 ####[facility] [address] [place], [address] Urea nitrogen [Mass/Vol] 3 mg/dL Low 4-19 [facility] Comment on above: Performed By: #### L 500.4050, L100.0100 ####[facility] [address] [place], [address] Platelet estimateOrdered By: Canelo Myers on 07-19-2025 Platelets LM Ql (Bld) SLT DEC ADEQ [facility] Bedside Glucoseon 07-18-2025 FINGERSTICK GLU 104 mg/dL Normal 74-106 [facility] Comment on above: Result Comment: CHAUNCEY GEMENT OF PATIENT CARE PER NURSING PROTOCOL Performed By: #### L 501.080 ####[facility] [address] [place], [address] FINGERSTICK GLU 108 mg/dL High 74-106 [facility] Comment on above: Result Comment: CHAUNCEY GEMENT OF PATIENT CARE PER NURSING PROTOCOL Performed By: #### L 501.080 ####[facility] [address] [place], [address] FINGERSTICK GLU 109 mg/dL High 74-106 [facility] Comment on above: Result Comment: CHAUNCEY GEMENT OF PATIENT CARE PER NURSING PROTOCOL Performed By: #### L 501.080 ####[facility] [address] [place], [address] FINGERSTICK GLU 84 mg/dL Normal 74-106 [facility] Comment on above: Result Comment: CHAUNCEY GEMENT OF PATIENT CARE PER NURSING PROTOCOL Performed By: #### L 501.080 ####[facility] [address] [place], [address] CBC W/Diff, Automatedon 06-30 Absolute Lymph 0.64 X10 3/uL Low 0.83-4.51 [facility] Comment on above: Performed By: #### L 500.4050, L100.0100, L501.5200, L501.2300 ####[facility] [address] [place], [address] Absolute Neut 3.3 X10 3/uL Normal 2.0-7.7 [facility] Comment on above: Performed By: #### L 500.4050, L100.0100, L501.5200, L501.2300 ####[facility] [address] [place], [address] Basophils/100 WBC (Bld) 0.4 % Normal 0-1 [facility] Comment on above: Performed By: #### L 500.4050, L100.0100, L501.5200, L501.2300 ####[facility] [address] [place], [address] Eosinophils/100 WBC (Bld) 2.4 % Normal 0-5 [facility] Comment on above: Performed By: #### L 500.4050, L100.0100, L501.5200, L501.2300 ####[facility] [address] [place], [address] Erythrocyte distribution width (RBC) [Ratio] 15.8 % High 11.6-14.6 [facility] Comment on above: Performed By: #### L 500.4050, L100.0100, L501.5200, L501.2300 ####[facility] [address] [place], [address] Hematocrit (Bld) [Volume fraction] 32.6 % Low 37-47 [facility] Comment on above: Performed By: #### L 500.4050, L100.0100, L501.5200, L501.2300 ####[facility] [address] [place], [address] Hemoglobin (Bld) [Mass/Vol] 10.8 g/dL Low 12.0-15.0 [facility] Comment on above: Performed By: #### L 500.4050, L100.0100, L501.5200, L501.2300 ####[facility] [address] [place], [address] IG% 0.700 Normal 0.0-0.9 [facility] Comment on above: Result Comment: IG% - Immature Granulocytes (promyelocytes, myelocytes andmetamyelocytes) > 1% indicates that a LEFT SHIFT is Present. Performed By: #### L 500.4050, L100.0100, L501.5200, L501.2300 ####[facility] [address] [place], [address] Lymphocytes/100 WBC (Bld) 14.1 % Low 19-41 [facility] Comment on above: Performed By: #### L 500.4050, L100.0100, L501.5200, L501.2300 ####[facility] [address] [place], [address] MCH (RBC) [Entitic mass] 33.9 pg High 27.0-32.0 [facility] Comment on above: Performed By: #### L 500.4050, L100.0100, L501.5200, L501.2300 ####[facility] [address] [place], [address] MCHC (RBC) [Mass/Vol] 33.1 g/dL Normal 32-36 [facility] Comment on above: Performed By: #### L 500.4050, L100.0100, L501.5200, L501.2300 ####[facility] [address] [place], [address] MCV (RBC) [Entitic vol] 102.2 fL High 81-99 [facility] Comment on above: Performed By: #### L 500.4050, L100.0100, L501.5200, L501.2300 ####[facility] [address] [place], [address] Monocytes/100 WBC (Bld) 9.2 % Normal 0-10 [facility] Comment on above: Performed By: #### L 500.4050, L100.0100, L501.5200, L501.2300 ####[facility] [address] [place], [address] Neutrophils/100 WBC (Bld) 73.2 % High 47-70 [facility] Comment on above: Performed By: #### L 500.4050, L100.0100, L501.5200, L501.2300 ####[facility] [address] [place], [address] Nucleated RBC (Bld) [#/Vol] 0 10*3/uL Normal 0-5 [facility] Comment on above: Performed By: #### L 500.4050, L100.0100, L501.5200, L501.2300 ####[facility] [address] [place], [address] Platelet mean volume (Bld) [Entitic vol] 10.0 fL Normal 6.2-12.0 [facility] Comment on above: Performed By: #### L 500.4050, L100.0100, L501.5200, L501.2300 ####[facility] [address] [place], [address] Platelets (Bld) [#/Vol] 103 10*3/uL Low 150-450 [facility] Comment on above: Performed By: #### L 500.4050, L100.0100, L501.5200, L501.2300 ####[facility] [address] [place], [address] RBC (Bld) [#/Vol] 3.19 10*6/uL Low 4.2-5.4 [facility] Comment on above: Performed By: #### L 500.4050, L100.0100, L501.5200, L501.2300 ####[facility] [address] [place], [address] RDW SD 58.9 fl High 35.1-43.9 [facility] Comment on above: Performed By: #### L 500.4050, L100.0100, L501.5200, L501.2300 ####[facility] [address] [place], [address] WBC (Bld) [#/Vol] 4.6 10*3/uL Normal 4.4-11.0 [facility] Comment on above: Performed By: #### L 500.4050, L100.0100, L501.5200, L501.2300 ####[facility] [address] [place], [address] Comprehensive Metabolic [facility] 07-18-2025 Albumin [Mass/Vol] 3.3 g/dL Low 3.5-5.0 [facility] Comment on above: Performed By: #### L 500.4050, L100.0100, L501.5200, L501.2300 ####[facility] [address] [place], [address] Albumin/Globulin [Mass ratio] 1.5 {ratio} Normal 0.9-2.4 [facility] Comment on above: Performed By: #### L 500.4050, L100.0100, L501.5200, L501.2300 ####[facility] [address] [place], [address] ALK PHOS 176 U/L High 35-104 [facility] Comment on above: Performed By: #### L 500.4050, L100.0100, L501.5200, L501.2300 ####[facility] [address] [place], [address] ALT [Catalytic activity/Vol] 223 U/L High <=34 [facility] Comment on above: Performed By: #### L 500.4050, L100.0100, L501.5200, L501.2300 ####[facility] [address] [place], [address] AST [Catalytic activity/Vol] 788 U/L High <=31 [facility] Comment on above: Performed By: #### L 500.4050, L100.0100, L501.5200, L501.2300 ####[facility] [address] [place], [address] Bilirubin [Mass/Vol] 1.36 mg/dL High 0.00-1.30 [facility] Comment on above: Performed By: #### L 500.4050, L100.0100, L501.5200, L501.2300 ####[facility] [address] [place], [address] BUN/CRE 16.1 RATIO Normal 10-20 [facility] Comment on above: Performed By: #### L 500.4050, L100.0100, L501.5200, L501.2300 ####[facility] [address] [place], [address] Calcium [Mass/Vol] 7.0 mg/dL Low 7.6-11.0 [facility] Comment on above: Performed By: #### L 500.4050, L100.0100, L501.5200, L501.2300 ####[facility] [address] [place], [address] Chloride [Moles/Vol] 100 mmol/L Normal 98-108 [facility] Comment on above: Performed By: #### L 500.4050, L100.0100, L501.5200, L501.2300 ####[facility] [address] [place], [address] CO2 [Moles/Vol] 24.0 mmol/L Normal 21.0-32.0 [facility] Comment on above: Performed By: #### L 500.4050, L100.0100, L501.5200, L501.2300 ####[facility] [address] [place], [address] Creatinine [Mass/Vol] 0.32 mg/dL Low 0.70-1.20 [facility] Comment on above: Performed By: #### L 500.4050, L100.0100, L501.5200, L501.2300 ####[facility] [address] [place], [address] ECRCL 185.66 ml/min Normal 50-250 [facility] Comment on above: Performed By: #### L 500.4050, L100.0100, L501.5200, L501.2300 ####[facility] [address] [place], [address] GAP 13 Normal 5-15 [facility] Comment on above: Performed By: #### L 500.4050, L100.0100, L501.5200, L501.2300 ####[facility] [address] [place], [address] GFR/1.73 sq M.predicted among non-blacks MDRD (S/P/Bld) [Vol rate/Area] 128 mL/min/{1.73_m2} Normal >60 [facility] Comment on above: Result Comment: mL/m in/1.73m2 CKD-EPI Creatinine Equation (2020) Performed By: #### L 500.4050, L100.0100, L501.5200, L501.2300 ####[facility] [address] [place], [address] Globulin (S) [Mass/Vol] 2.2 g/dL Normal 2.2-4.2 [facility] Comment on above: Performed By: #### L 500.4050, L100.0100, L501.5200, L501.2300 ####[facility] [address] [place], [address] Glucose [Mass/Vol] 76 mg/dL Normal 70-99 [facility] Comment on above: Performed By: #### L 500.4050, L100.0100, L501.5200, L501.2300 ####[facility] [address] [place], [address] Potassium [Moles/Vol] 3.6 mmol/L Normal 3.3-5.1 [facility] Comment on above: Performed By: #### L 500.4050, L100.0100, L501.5200, L501.2300 ####[facility] [address] [place], [address] Sodium [Moles/Vol] 137 mmol/L Normal 133-145 [facility] Comment on above: Performed By: #### L 500.4050, L100.0100, L501.5200, L501.2300 ####[facility] [address] [place], [address] T PROT 5.5 g/dL Low 5.9-8.4 [facility] Comment on above: Performed By: #### L 500.4050, L100.0100, L501.5200, L501.2300 ####[facility] [address] [place], [address] Urea nitrogen [Mass/Vol] 5 mg/dL Normal 4-19 [facility] Comment on above: Performed By: #### L 500.4050, L100.0100, L501.5200, L501.2300 ####[facility] [address] [place], [address] Lipaseon 07-18-2025 Lipase [Catalytic activity/Vol] 1128 U/L High 13-75 [facility] Comment on above: Result Comment: Lucie schultz note:LIPASE revised reference range effective 23.New Lipase methodology. Expected to produce lower valuesthan the previous assay method.NEW Reference Range: 13 - 75 U/L Performed By: #### L 501.2450 ####[facility] [address] [place], [address] Magnesiumon 07-18-2025 Magnesium [Mass/Vol] 1.7 mg/dL Normal 1.5-2.2 [facility] Comment on above: Performed By: #### L 500.4050, L100.0100, L501.5200, L501.2300 ####[facility] [address] [place], [address] Magnesium measurement (mass/ volume)Ordered By: Canelo Myers on 07-18-2025 Magnesium (Unsp spec) [Mass/Vol] 1.7 mg/dL 1.5-2.2 [facility] Phosphoruson 07-18-2025 Phosphate [Mass/Vol] 2.7 mg/dL Normal 2.7-4.5 [facility] Comment on above: Performed By: #### L 500.4050, L100.0100, L501.5200, L501.2300 ####[facility] [address] [place], [address] Abdomen/Pelvis W IV Cont ONL Yon 07-17-2025 Abdomen/Pelvis W IV Cont ONLY Normal [facility] Absolute lymphocyte countOrd ered By: Francisco Colon on 07-17-2025 Lymphocytes Auto (Unsp spec) [#/Vol] 0.78 10*3/uL Low 0.83-4.51 [facility] Alcohol, Blood (Medical)-Ser umon 07-17-2025 SERUM ETOH 34.9 mg/dL High <=10.0 [facility] Comment on above: Result Comment: This test is for medical purposes only. The legaldefinition of intoxication varies according to local law. Performed By: #### L 501.9100 ####[facility] [address] [place], [address] Amylaseon 07-17-2025 VENANCIO 898 U/L High 28-100 [facility] Comment on above: Performed By: #### L 500.4050, L501.2450, L501.2400 ####[facility] [address] [place], [address] Anion gap in Serum or Plasma Ordered By: Francisco Colon on 07-17-2025 Anion gap [Moles/Vol] 19 mmol/L High 5-15 [facility] Automated lymphocyte count a s percentage of total leukocytesOrdered By: Francisco Colon on 07-17-2025 Lymphocytes/100 WBC Auto (Unsp spec) 11.2 % Low 19-41 [facility] BUN/creatinine ratioOrdered By: Francisco Colon on 07-17-2025 Urea nitrogen/Creatinine [Mass ratio] 15.5 mg/mg 10-20 [facility] Basophil percentageOrdered B y: Francisco Colon on 07-17-2025 Basophils/100 WBC (Bld) 0.4 % 0-1 [facility] Bedside Glucoseon 07-17-2025 FINGERSTICK GLU 151 mg/dL High 74-106 [facility] Comment on above: Result Comment: CHAUNCEY GEMENT OF PATIENT CARE PER NURSING PROTOCOL Performed By: #### L 501.080 ####[facility] [address] [place], [address] FINGERSTICK GLU 71 mg/dL Low 74-106 [facility] Comment on above: Result Comment: CHAUNCEY GEMENT OF PATIENT CARE PER NURSING PROTOCOL Performed By: #### L 501.080 ####[facility] [address] [place], [address] Bilirubin Test strip Ql (U)O rdered By: Francisco Colon on 07-17-2025 Bilirubin Ql (U) Negative Negative [facility] Bilirubin, totalOrdered By: Francisco Colon on 07-17-2025 Bilirubin [Mass/Vol] 0.43 mg/dL 0.00-1.30 [facility] CBC W/Diff, Automatedon 08- Absolute Lymph 0.78 X10 3/uL Low 0.83-4.51 [facility] Comment on above: Performed By: #### L 100.0100 ####[facility] [address] [place], [address] Absolute Neut 5.6 X10 3/uL Normal 2.0-7.7 [facility] Comment on above: Performed By: #### L 100.0100 ####[facility] [address] [place], [address] Basophils/100 WBC (Bld) 0.4 % Normal 0-1 [facility] Comment on above: Performed By: #### L 100.0100 ####[facility] [address] [place], [address] Eosinophils/100 WBC (Bld) 0.3 % Normal 0-5 [facility] Comment on above: Performed By: #### L 100.0100 ####[facility] [address] [place], [address] Erythrocyte distribution width (RBC) [Ratio] 15.9 % High 11.6-14.6 [facility] Comment on above: Performed By: #### L 100.0100 ####[facility] [address] [place], [address] Hematocrit (Bld) [Volume fraction] 38.5 % Normal 37-47 [facility] Comment on above: Performed By: #### L 100.0100 ####[facility] [address] [place], [address] Hemoglobin (Bld) [Mass/Vol] 13.2 g/dL Normal 12.0-15.0 [facility] Comment on above: Performed By: #### L 100.0100 ####[facility] [address] [place], [address] IG% 0.600 Normal 0.0-0.9 [facility] Comment on above: Result Comment: IG% - Immature Granulocytes (promyelocytes, myelocytes andmetamyelocytes) > 1% indicates that a LEFT SHIFT is Present. Performed By: #### L 100.0100 ####[facility] [address] [place], [address] Lymphocytes/100 WBC (Bld) 11.2 % Low 19-41 [facility] Comment on above: Performed By: #### L 100.0100 ####[facility] [address] [place], [address] MCH (RBC) [Entitic mass] 33.8 pg High 27.0-32.0 [facility] Comment on above: Performed By: #### L 100.0100 ####[facility] [address] [place], [address] MCHC (RBC) [Mass/Vol] 34.3 g/dL Normal 32-36 [facility] Comment on above: Performed By: #### L 100.0100 ####[facility] [address] [place], [address] MCV (RBC) [Entitic vol] 98.7 fL Normal 81-99 [facility] Comment on above: Performed By: #### L 100.0100 ####[facility] [address] [place], [address] Monocytes/100 WBC (Bld) 7.2 % Normal 0-10 [facility] Comment on above: Performed By: #### L 100.0100 ####[facility] [address] [place], [address] Neutrophils/100 WBC (Bld) 80.3 % High 47-70 [facility] Comment on above: Performed By: #### L 100.0100 ####[facility] [address] [place], [address] Nucleated RBC (Bld) [#/Vol] 0 10*3/uL Normal 0-5 [facility] Comment on above: Performed By: #### L 100.0100 ####[facility] [address] [place], [address] Platelet mean volume (Bld) [Entitic vol] 9.7 fL Normal 6.2-12.0 [facility] Comment on above: Performed By: #### L 100.0100 ####[facility] [address] [place], [address] Platelets (Bld) [#/Vol] 150 10*3/uL Normal 150-450 [facility] Comment on above: Performed By: #### L 100.0100 ####[facility] [address] [place], [address] RBC (Bld) [#/Vol] 3.90 10*6/uL Low 4.2-5.4 [facility] Comment on above: Performed By: #### L 100.0100 ####[facility] [address] [place], [address] RDW SD 56.5 fl High 35.1-43.9 [facility] Comment on above: Performed By: #### L 100.0100 ####[facility] [address] [place], [address] WBC (Bld) [#/Vol] 7.0 10*3/uL Normal 4.4-11.0 [facility] Comment on above: Performed By: #### L 100.0100 ####[facility] [address] [place], [address] Carbon dioxide, total [Moles /volume] in Central venous bloodOrdered By: Francisco Colon on 07-17-2025 CO2 [Moles/Vol] 25.6 mmol/L 21.0-32.0 [facility] Chloride assayOrdered By: Peyman Colon on 07-17-2025 Chloride [Moles/Vol] 99 mmol/L 98-108 [facility] Comprehensive Metabolic Prof ilon 07-17-2025 Albumin [Mass/Vol] 3.9 g/dL Normal 3.5-5.0 [facility] Comment on above: Performed By: #### L 500.4050, L501.2450, L501.2400 ####[facility] [address] [place], [address] Albumin/Globulin [Mass ratio] 1.4 {ratio} Normal 0.9-2.4 [facility] Comment on above: Performed By: #### L 500.4050, L501.2450, L501.2400 ####[facility] [address] [place], [address] ALK PHOS 98 U/L Normal 35-104 [facility] Comment on above: Performed By: #### L 500.4050, L501.2450, L501.2400 ####[facility] [address] [place], [address] ALT [Catalytic activity/Vol] 92 U/L High <=34 [facility] Comment on above: Performed By: #### L 500.4050, L501.2450, L501.2400 ####[facility] [address] [place], [address] AST [Catalytic activity/Vol] 165 U/L High <=31 [facility] Comment on above: Performed By: #### L 500.4050, L501.2450, L501.2400 ####[facility] [address] [place], [address] Bilirubin [Mass/Vol] 0.43 mg/dL Normal 0.00-1.30 [facility] Comment on above: Performed By: #### L 500.4050, L501.2450, L501.2400 ####[facility] [address] [place], [address] BUN/CRE 15.5 RATIO Normal 10-20 [facility] Comment on above: Performed By: #### L 500.4050, L501.2450, L501.2400 ####[facility] [address] [place], [address] Calcium [Mass/Vol] 8.6 mg/dL Normal 7.6-11.0 [facility] Comment on above: Performed By: #### L 500.4050, L501.2450, L501.2400 ####[facility] [address] [place], [address] Chloride [Moles/Vol] 99 mmol/L Normal 98-108 [facility] Comment on above: Performed By: #### L 500.4050, L501.2450, L501.2400 ####[facility] [address] [place], [address] CO2 [Moles/Vol] 25.6 mmol/L Normal 21.0-32.0 [facility] Comment on above: Performed By: #### L 500.4050, L501.2450, L501.2400 ####[facility] [address] [place], [address] Creatinine [Mass/Vol] 0.39 mg/dL Low 0.70-1.20 [facility] Comment on above: Performed By: #### L 500.4050, L501.2450, L501.2400 ####[facility] [address] [place], [address] ECRCL 152.33 ml/min Normal 50-250 [facility] Comment on above: Performed By: #### L 500.4050, L501.2450, L501.2400 ####[facility] [address] [place], [address] GAP 19 High 5-15 [facility] Comment on above: Performed By: #### L 500.4050, L501.2450, L501.2400 ####[facility] [address] [place], [address] GFR/1.73 sq M.predicted among non-blacks MDRD (S/P/Bld) [Vol rate/Area] 123 mL/min/{1.73_m2} Normal >60 [facility] Comment on above: Result Comment: mL/m in/1.73m2 CKD-EPI Creatinine Equation (2020) Performed By: #### L 500.4050, L501.2450, L501.2400 ####[facility] [address] [place], [address] Globulin (S) [Mass/Vol] 2.7 g/dL Normal 2.2-4.2 [facility] Comment on above: Performed By: #### L 500.4050, L501.2450, L501.2400 ####[facility] [address] [place], [address] Glucose [Mass/Vol] 120 mg/dL High 70-99 [facility] Comment on above: Performed By: #### L 500.4050, L501.2450, L501.2400 ####[facility] [address] [place], [address] Potassium [Moles/Vol] 3.0 mmol/L Low 3.3-5.1 [facility] Comment on above: Performed By: #### L 500.4050, L501.2450, L501.2400 ####[facility] [address] [place], [address] Sodium [Moles/Vol] 144 mmol/L Normal 133-145 [facility] Comment on above: Performed By: #### L 500.4050, L501.2450, L501.2400 ####[facility] [address] [place], [address] T PROT 6.6 g/dL Normal 5.9-8.4 [facility] Comment on above: Performed By: #### L 500.4050, L501.2450, L501.2400 ####[facility] [address] [place], [address] Urea nitrogen [Mass/Vol] 6 mg/dL Normal 4-19 [facility] Comment on above: Performed By: #### L 500.4050, L501.2450, L501.2400 ####[facility] [address] [place], [address] Emergency Department Summary on 07-17-2025 Emergency Department Summary Normal [facility] Eosinophil percentageOrdered By: Francisco Colon on 07-17-2025 Eosinophils/100 WBC (Bld) 0.3 % 0-5 [facility] Erythrocyte distribution wid th ratioOrdered By: Francisco Colon on 07-17-2025 Erythrocyte distribution width (RBC) [Ratio] 15.9 % High 11.6-14.6 [facility] Erythrocyte distribution wid th standard deviationOrdered By: Francisco Colon on 07-17-2025 Erythrocyte distribution width (RBC) [Ratio] 56.5 fl High 35.1-43.9 [facility] Glomerular filtration rate ( GFR) estimation/1.73 sq m using serum, plasma, or whole bOrdered By: Francisco Colon on 07-17-2025 GFR/1.73 sq M.predicted among non-blacks MDRD (S/P/Bld) [Vol rate/Area] 123 mL/min/{1.73_m2} >60 [facility] H AND P Exam - Hospitaliston 07-17-2025 H&P Exam - Hospitalist Normal [facility] Hematocrit Auto (Bld) [Volum e fraction]Ordered By: Francisco Colon on 07-17-2025 Hematocrit (Bld) [Volume fraction] 38.5 % 37-47 [facility] Hemoglobin measurementOrdere d By: Francisco Colon on 07-17-2025 Hemoglobin (Bld) [Mass/Vol] 13.2 g/dL 12.0-15.0 [facility] Immature granulocytes/100 WB C Auto (Bld)Ordered By: Francisco Colon on 07-17-2025 Immature granulocytes/100 WBC (Bld) 0.600 % 0.0-0.9 [facility] Ketones Test strip Ql (U)Ord ered By: Francisco Colon on 07-17-2025 Ketones Ql (U) 5 mg/dl High Negative [facility] Lipaseon 07-17-2025 Lipase [Catalytic activity/Vol] U/L High 13-75 [facility] Comment on above: Result Comment: Lucie schultz note:LIPASE revised reference range effective 23.New Lipase methodology. Expected to produce lower valuesthan the previous assay method.NEW Reference Range: 13 - 75 U/L Performed By: #### L 500.4050, L501.2450, L501.2400 ####[facility] [address] [place], [place], [address] MCV (mean corpuscular volume ) determinationOrdered By: Francisco Colon on 07-17-2025 MCV (RBC) [Entitic vol] 98.7 fL 81-99 [facility] Magnesiumon 07-17-2025 Magnesium [Mass/Vol] 1.1 mg/dL Low 1.5-2.2 [facility] Comment on above: Performed By: #### L 501.2300, L501.5200 ####[facility] [address] [place], [place], [address] Mean corpuscular hemoglobin (MCH) determinationOrdered By: Francisco Colon on 07-17-2025 MCH (RBC) [Entitic mass] 33.8 pg High 27.0-32.0 [facility] Monocyte percentageOrdered B y: Francisco Colon on 07-17-2025 Monocytes/100 WBC (Bld) 7.2 % 0-10 [facility] Mucus LM Ql (Urine sed)Order ed By: Francisco Colon on 07-17-2025 Mucus Ql (Urine sed) 0 SEEN /hpf [facility] Neutrophil percentageOrdered By: Francisco Colon on 07-17-2025 Neutrophils/100 WBC (Bld) 80.3 % High 47-70 [facility] Nitrite Test strip Ql (U)Ord ered By: Francisco Colon on 07-17-2025 Nitrite Ql (U) Negative Negative [facility] No Panel InformationOrdered By: Francisco Colon on 07-17-2025 165 U/L High <32 [facility] Phosphoruson 07-17-2025 Phosphate [Mass/Vol] 4.4 mg/dL Normal 2.7-4.5 [facility] Comment on above: Performed By: #### L 501.2300, L501.5200 ####[facility] [address] [place], [place], [id number] Platelet countOrdered By: Peyman Colon on 07-17-2025 Platelets (Bld) [#/Vol] 150 10*3/uL 150-450 [facility] Potassium measurement (mass/ volume)Ordered By: Francisco Colon on 07-17-2025 Potassium (Unsp spec) [Mass/Vol] 3.0 mmol/L Low 3.3-5.1 [facility] ,Serum,hCG Quali.on 07-17-2025 HCG, SERUM QUAL Negative Normal [facility] Comment on above: Performed By: #### L 764.3885 ####[facility] [address] [place], [address] Protein Test strip Ql (U)Ord ered By: Francisco Colon on 07-17-2025 Protein Ql (U) 30 mg/dl High Negative [facility] Prothrombin Time w/INRon INR Coag (PPP) [Relative time] 1.0 {INR} Normal [facility] Comment on above: Performed By: #### L 300.3900 ####[facility] [address] [place], [address] PT Coag (PPP) [Time] 12.9 s Normal 11.7-14.9 [facility] Comment on above: Performed By: #### L 300.3900 ####[facility] [address] [place], [address] Prothrombin timeOrdered By: Canelo Myers on 07-17-2025 PT Coag (PPP) [Time] 12.9 s 11.7-14.9 [facility] RBC Auto (Bld) [#/Vol]Ordere d By: Francisco Colon on 07-17-2025 RBC (Bld) [#/Vol] 3.90 10*6/uL Low 4.2-5.4 [facility] Serum beta-hCG test, qualita tiveOrdered By: Francisco Colon on 07-17-2025 Beta HCG ( test) Ql Negative [facility] Serum creatinine measurement (mass/volume)Ordered By: Francisco Colon on 07-17-2025 Creatinine [Mass/Vol] 0.39 mg/dL Low 0.70-1.20 [facility] Serum globulin measurementOr dered By: Francisco Colon on 07-17-2025 Globulin (S) [Mass/Vol] 2.7 g/dL 2.2-4.2 [facility] Serum glucose measurement (m ass/volume)Ordered By: Francisco Colon on 07-17-2025 Glucose [Mass/Vol] 120 mg/dL High 70-99 [facility] Serum or plasma alanine wilkerson otransferase (ALT) measurementOrdered By: Francisco Colon on 07-17-2025 ALT [Catalytic activity/Vol] 92 U/L High <35 [facility] Serum or plasma albumin alphonso urement (mass/volume)Ordered By: Francisco Colon on 07-17-2025 Albumin [Mass/Vol] 3.9 g/dL 3.5-5.0 [facility] Serum or plasma albumin/glob ulin mass ratioOrdered By: Francisco Colon on 07-17-2025 Albumin/Globulin [Mass ratio] 1.4 {ratio} 0.9-2.4 [facility] Serum or plasma alkaline trinity sphatase measurementOrdered By: Francisco Colon on 07-17-2025 ALP [Catalytic activity/Vol] 98 U/L 35-104 [facility] Serum or plasma amylase alphonso urement (enzymatic activity/volume)Ordered By: Francisco Colon on 07-17-2025 Amylase [Catalytic activity/Vol] 898 U/L High 28-100 [facility] Serum or plasma calcium alphonso urement (mass/volume)Ordered By: Francisco Colon on 07-17-2025 Calcium [Mass/Vol] 8.6 mg/dL 7.6-11.0 [facility] Serum or plasma ethanol alphonso urement (mass/volume)Ordered By: Francisco Colon on 07-17-2025 Ethanol [Mass/Vol] 34.9 mg/dL High <10.1 [facility] Serum or plasma urea nitroge n measurement (mass/volume)Ordered By: Francisco Colon on 07-17-2025 Urea nitrogen [Mass/Vol] 6 mg/dL 4- [facility] Sodium levelOrdered By: Francisco Colon on 07-17-2025 Sodium [Moles/Vol] 144 mmol/L 133-145 [facility] Squamous epithelial cells de tection in urine sediment by light microscopyOrdered By: Francisco Colon on 07-17-2025 Epithelial cells.squamous LM Ql (Urine sed) 0-5 SEEN /hpf 04-07 [facility] Total proteinOrdered By: Rommel Colon on 07-17-2025 Protein [Mass/Vol] 6.6 g/dL 5.9-8.4 [facility] Urinalysis, Completeon 07-17 EPI,SQUAMOUS 0-5 SEEN Normal 04-07 [facility] Comment on above: Order Comment: CLEAN CATCH Performed By: #### L 400.0001 ####[facility] [address] [place], [place], [address] BACTERIA 0 SEEN Normal None Seen [facility] Comment on above: Order Comment: CLEAN CATCH Performed By: #### L 400.0001 ####[facility] [address] [place], [address] Mucus Ql (Urine sed) [address] [facility] Comment on above: Order Comment: CLEAN CATCH Performed By: #### L 400.0001 ####[facility] [address] [place], [address] RBC 0 SEEN Normal 0-5 [facility] Comment on above: Order Comment: CLEAN CATCH Performed By: #### L 400.0001 ####[facility] [address] [place], [place], [address] WBC 0 SEEN Normal 0-5 [facility] Comment on above: Order Comment: CLEAN CATCH Performed By: #### L 400.0001 ####[facility] [address] [place], [place], [id number] Urine clarityOrdered By: Rommel Colon on 07-17-2025 Clarity (U) Clear Clear [facility] Urine color determinationOrd ered By: Francisco Colon on 07-17-2025 Color (U) Yellow Yellow [facility] Urine glucose detectionOrder ed By: Francisco Colon on 07-17-2025 Glucose Ql (U) Normal mg/dl Normal [facility] Urine leukocyte esterase det ection by dipstickOrdered By: Francisco Colon on 07-17-2025 Leukocyte esterase Test strip Ql (U) 25 /ul High Negative [facility] Urine pHOrdered By: Francisco stuart on 07-17-2025 pH (U) 6.5 [pH] 5.0 - 8.0 [facility] Urine sediment bacteria coun t by microscopy (number/high power field)Ordered By: Francisco Colon on 07-17-2025 Bacteria LM.HPF (Urine sed) [#/Area] 0 /[HPF] None Seen [facility] Urine specific gravity measu rementOrdered By: Francisco Colon on 07-17-2025 Specific gravity (U) [Rel density] 1.010 1.002-1.030 [facility] Urine urobilinogen measureme ntOrdered By: Francisco Colon on 07-17-2025 Urobilinogen Ql (U) Normal mg/dl Normal [facility] White blood cell (WBC) count Ordered By: Francisco Colon on 07-17-2025 WBC (Bld) [#/Vol] 7.0 10*3/uL 4.4-11.0 [facility] White blood cell countOrdere d By: Francisco Colon on 07-17-2025 White blood cell count 0 SEEN /hpf 0-5 [facility] Bedside Glucoseon 05-28-2025 FINGERSTICK GLU 259 mg/dL High 74-106 [facility] Comment on above: Result Comment: CHAUNCEY GEMENT OF PATIENT CARE PER NURSING PROTOCOL Performed By: #### L 501.080 ####[facility] [address] [facility] [address] FINGERSTICK GLU 164 mg/dL High [address] [facility] Comment on above: Result Comment: CHAUNCEY GEMENT OF PATIENT CARE PER NURSING PROTOCOL Performed By: #### L 501.080 ####[facility] [address] [facility] [address] Discharge Instructionon 3 Discharge Instruction Normal [facility] deOrdered By: Mao Becker on 05-28-2025 Glucose [Mass/Vol] 259 mg/dL High 74-106 [facility] Comment on above: MANAGEMENT OF PATIEN T CARE PER NURSING PROTOCOL Bedside Glucoseon 05-27-2025 FINGERSTICK GLU 217 mg/dL High [address] [place] [address] Comment on above: Result Comment: CHAUNCEY GEMENT OF PATIENT CARE PER NURSING PROTOCOL Performed By: #### L 501.080 ####[facility] [address] [facility] [address] FINGERSTICK GLU 179 mg/dL High [facility]106 [facility] Comment on above: Result Comment: CHAUNCEY GEMENT OF PATIENT CARE PER NURSING PROTOCOL Performed By: #### L 501.080 ####[facility] [address] [facility] [address] FINGERSTICK GLU 246 mg/dL High [address] [place] [address] Comment on above: Result Comment: CHAUNCEY GEMENT OF PATIENT CARE PER NURSING PROTOCOL Performed By: #### L 501.080 ####[facility] [address] [facility] [address] FINGERSTICK GLU 133 mg/dL High [address] [facility] Comment on above: Result Comment: CHAUNCEY GEMENT OF PATIENT CARE PER NURSING PROTOCOL Performed By: #### L 501.080 ####[facility] [address] [place], [address] Magnesiumon 05-27-2025 Magnesium [Mass/Vol] 1.7 mg/dL Normal 1.5-2.2 [facility] Comment on above: Performed By: #### L 501.5200 ####[facility] [address] [place], [address] Magnesium measurement (mass/ volume)Ordered By: Mao Becker on 05-27-2025 Magnesium (Unsp spec) [Mass/Vol] 1.7 mg/dL 1.5-2.2 [facility] Bedside Glucoseon 05-26-2025 FINGERSTICK GLU 243 mg/dL High 74-106 [facility] Comment on above: Result Comment: CHAUNCEY GEMENT OF PATIENT CARE PER NURSING PROTOCOL Performed By: #### L 501.080 ####[facility] [address] [place], [address] FINGERSTICK GLU 221 mg/dL High 74-106 [facility] Comment on above: Result Comment: CHAUNCEY GEMENT OF PATIENT CARE PER NURSING PROTOCOL Performed By: #### L 501.080 ####[facility] [address] [place], [address] FINGERSTICK GLU 293 mg/dL High 74-106 [facility] Comment on above: Result Comment: CHAUNCEY GEMENT OF PATIENT CARE PER NURSING PROTOCOL Performed By: #### L 501.080 ####[facility] [address] [place], [address] FINGERSTICK GLU 119 mg/dL High 74-106 [facility] Comment on above: Result Comment: CHAUNCEY GEMENT OF PATIENT CARE PER NURSING PROTOCOL Performed By: #### L 501.080 ####[facility] [address] [place], [address] Magnesiumon 05-26-2025 Magnesium [Mass/Vol] 1.3 mg/dL Low 1.5-2.2 [facility] Comment on above: Performed By: #### L 501.5200 ####[facility] [address] [place], [address] Alcohol, Blood (Medical)-Ser umon 05-25-2025 SERUM ETOH 312.0 mg/dL Invalid Interpretation Code <=10.0 [facility] Comment on above: Result Comment: Crit ical Result(s) Called at 0100: by: NBURNS TO LSPARR??Results read back by same.This test is for medical purposes only. The legaldefinition of intoxication varies according to local law. Performed By: #### L 100.0100, L501.9100, L700.6800, L500.4050, L505.5000 ####[facility] [address] [place], [address] Bedside Glucoseon 05-25-2025 FINGERSTICK GLU 182 mg/dL High 74-106 [facility] Comment on above: Result Comment: CHAUNCEY GEMENT OF PATIENT CARE PER NURSING PROTOCOL Performed By: #### L 501.080 ####[facility] [address] [place], [address] FINGERSTICK GLU 187 mg/dL High 74-106 [facility] Comment on above: Result Comment: CHAUNCEY GEMENT OF PATIENT CARE PER NURSING PROTOCOL Performed By: #### L 501.080 ####[facility] [address] [place], [address] FINGERSTICK GLU 220 mg/dL High 74-106 [facility] Comment on above: Result Comment: CHAUNCEY GEMENT OF PATIENT CARE PER NURSING PROTOCOL Performed By: #### L 501.080 ####[facility] [address] [place], [address] FINGERSTICK GLU 179 mg/dL High 74-106 [facility] Comment on above: Result Comment: CHAUNCEY GEMENT OF PATIENT CARE PER NURSING PROTOCOL Performed By: #### L 501.080 ####[facility] [address] [place], [address] CBC W/Diff, Automatedon 06-2 Absolute Lymph 3.57 X10 3/uL Normal 0.83-4.51 [facility] Comment on above: Performed By: #### L 100.0100, L501.9100, L700.6800, L500.4050, L505.5000 ####[facility] [address] [place], [address] Absolute Neut 4.3 X10 3/uL Normal 2.0-7.7 [facility] Comment on above: Performed By: #### L 100.0100, L501.9100, L700.6800, L500.4050, L505.5000 ####[facility] [address] [place], [address] Basophils/100 WBC (Bld) 0.5 % Normal 0-1 [facility] Comment on above: Performed By: #### L 100.0100, L501.9100, L700.6800, L500.4050, L505.5000 ####[facility] [address] [place], [address] Eosinophils/100 WBC (Bld) 0.7 % Normal 0-5 [facility] Comment on above: Performed By: #### L 100.0100, L501.9100, L700.6800, L500.4050, L505.5000 ####[facility] [address] [place], [address] Erythrocyte distribution width (RBC) [Ratio] 13.1 % Normal 11.6-14.6 [facility] Comment on above: Performed By: #### L 100.0100, L501.9100, L700.6800, L500.4050, L505.5000 ####[facility] [address] [place], [address] Hematocrit (Bld) [Volume fraction] 38.3 % Normal 37-47 [facility] Comment on above: Performed By: #### L 100.0100, L501.9100, L700.6800, L500.4050, L505.5000 ####[facility] [address] [place], [address] Hemoglobin (Bld) [Mass/Vol] 13.2 g/dL Normal 12.0-15.0 [facility] Comment on above: Performed By: #### L 100.0100, L501.9100, L700.6800, L500.4050, L505.5000 ####[facility] [address] [place], [address] IG% 0.100 Normal 0.0-0.9 [facility] Comment on above: Result Comment: IG% - Immature Granulocytes (promyelocytes, myelocytes andmetamyelocytes) > 1% indicates that a LEFT SHIFT is Present. Performed By: #### L 100.0100, L501.9100, L700.6800, L500.4050, L505.5000 ####[facility] [address] [place], [address] Lymphocytes/100 WBC (Bld) 41.1 % High 19-41 [facility] Comment on above: Performed By: #### L 100.0100, L501.9100, L700.6800, L500.4050, L505.5000 ####[facility] [address] [place], [address] MCH (RBC) [Entitic mass] 34.6 pg High 27.0-32.0 [facility] Comment on above: Performed By: #### L 100.0100, L501.9100, L700.6800, L500.4050, L505.5000 ####[facility] [address] [place], [address] MCHC (RBC) [Mass/Vol] 34.5 g/dL Normal 32-36 [facility] Comment on above: Performed By: #### L 100.0100, L501.9100, L700.6800, L500.4050, L505.5000 ####[facility] [address] [place], [address] MCV (RBC) [Entitic vol] 100.3 fL High 81-99 [facility] Comment on above: Performed By: #### L 100.0100, L501.9100, L700.6800, L500.4050, L505.5000 ####[facility] [address] [place], [address] Monocytes/100 WBC (Bld) 7.7 % Normal 0-10 [facility] Comment on above: Performed By: #### L 100.0100, L501.9100, L700.6800, L500.4050, L505.5000 ####[facility] [address] [place], [address] Neutrophils/100 WBC (Bld) 49.9 % Normal 47-70 [facility] Comment on above: Performed By: #### L 100.0100, L501.9100, L700.6800, L500.4050, L505.5000 ####[facility] [address] [place], [address] Nucleated RBC (Bld) [#/Vol] 0 10*3/uL Normal 0-5 [facility] Comment on above: Performed By: #### L 100.0100, L501.9100, L700.6800, L500.4050, L505.5000 ####[facility] [address] [place], [address] Platelet mean volume (Bld) [Entitic vol] 10.0 fL Normal 6.2-12.0 [facility] Comment on above: Performed By: #### L 100.0100, L501.9100, L700.6800, L500.4050, L505.5000 ####[facility] [address] [place], [address] Platelets (Bld) [#/Vol] 187 10*3/uL Normal 150-450 [facility] Comment on above: Performed By: #### L 100.0100, L501.9100, L700.6800, L500.4050, L505.5000 ####[facility] [address] [place], [address] RBC (Bld) [#/Vol] 3.82 10*6/uL Low 4.2-5.4 [facility] Comment on above: Performed By: #### L 100.0100, L501.9100, L700.6800, L500.4050, L505.5000 ####[facility] [address] [place], [address] RDW SD 47.9 fl High 35.1-43.9 [facility] Comment on above: Performed By: #### L 100.0100, L501.9100, L700.6800, L500.4050, L505.5000 ####[facility] [address] [place], [address] WBC (Bld) [#/Vol] 8.7 10*3/uL Normal 4.4-11.0 [facility] Comment on above: Performed By: #### L 100.0100, L501.9100, L700.6800, L500.4050, L505.5000 ####[facility] [address] [place], [address] Comprehensive Metabolic Prof ilon 05-25-2025 Albumin [Mass/Vol] 4.1 g/dL Normal 3.5-5.0 [facility] Comment on above: Performed By: #### L 100.0100, L501.9100, L700.6800, L500.4050, L505.5000 ####[facility] [address] [place], [address] Albumin/Globulin [Mass ratio] 1.2 {ratio} Normal 0.9-2.4 [facility] Comment on above: Performed By: #### L 100.0100, L501.9100, L700.6800, L500.4050, L505.5000 ####[facility] [address] [place], [address] ALK PHOS 115 U/L High 35-104 [facility] Comment on above: Performed By: #### L 100.0100, L501.9100, L700.6800, L500.4050, L505.5000 ####[facility] [address] [place], [address] ALT [Catalytic activity/Vol] 29 U/L Normal <=34 [facility] Comment on above: Performed By: #### L 100.0100, L501.9100, L700.6800, L500.4050, L505.5000 ####[facility] [address] [place], [address] AST [Catalytic activity/Vol] 45 U/L High <=31 [facility] Comment on above: Result Comment: Hemo lysis present, Results??could be affected.?? Performed By: #### L 100.0100, L501.9100, L700.6800, L500.4050, L505.5000 ####[facility] [address] [place], [address] Bilirubin [Mass/Vol] 0.37 mg/dL Normal 0.00-1.30 [facility] Comment on above: Performed By: #### L 100.0100, L501.9100, L700.6800, L500.4050, L505.5000 ####[facility] [address] [place], [address] BUN/CRE 11.4 RATIO Normal 10-20 [facility] Comment on above: Performed By: #### L 100.0100, L501.9100, L700.6800, L500.4050, L505.5000 ####[facility] [address] [place], [address] Calcium [Mass/Vol] 8.7 mg/dL Normal 7.6-11.0 [facility] Comment on above: Performed By: #### L 100.0100, L501.9100, L700.6800, L500.4050, L505.5000 ####[facility] [address] [place], [address] Chloride [Moles/Vol] 98 mmol/L Normal 98-108 [facility] Comment on above: Performed By: #### L 100.0100, L501.9100, L700.6800, L500.4050, L505.5000 ####[facility] [address] [place], [address] CO2 [Moles/Vol] 20.9 mmol/L Low 21.0-32.0 [facility] Comment on above: Performed By: #### L 100.0100, L501.9100, L700.6800, L500.4050, L505.5000 ####[facility] [address] [place], [address] Creatinine [Mass/Vol] 0.72 mg/dL Normal 0.70-1.20 [facility] Comment on above: Performed By: #### L 100.0100, L501.9100, L700.6800, L500.4050, L505.5000 ####[facility] [address] [place], [address] ECRCL 82.51 ml/min Normal 50-250 [facility] Comment on above: Performed By: #### L 100.0100, L501.9100, L700.6800, L500.4050, L505.5000 ####[facility] [address] [place], [address] GAP 21 High 5-15 [facility] Comment on above: Performed By: #### L 100.0100, L501.9100, L700.6800, L500.4050, L505.5000 ####[facility] [address] [place], [address] GFR/1.73 sq M.predicted among non-blacks MDRD (S/P/Bld) [Vol rate/Area] 104 mL/min/{1.73_m2} Normal >60 [facility] Comment on above: Result Comment: mL/m in/1.73m2 CKD-EPI Creatinine Equation (2020) Performed By: #### L 100.0100, L501.9100, L700.6800, L500.4050, L505.5000 ####[facility] [address] [place], [address] Globulin (S) [Mass/Vol] 3.4 g/dL Normal 2.2-4.2 [facility] Comment on above: Performed By: #### L 100.0100, L501.9100, L700.6800, L500.4050, L505.5000 ####[facility] [address] [place], [address] Glucose [Mass/Vol] 84 mg/dL Normal 70-99 [facility] Comment on above: Performed By: #### L 100.0100, L501.9100, L700.6800, L500.4050, L505.5000 ####[facility] [address] [place], [address] Potassium [Moles/Vol] 4.1 mmol/L Normal 3.3-5.1 [facility] Comment on above: Result Comment: Hemo lysis present, Results??could be affected.?? Performed By: #### L 100.0100, L501.9100, L700.6800, L500.4050, L505.5000 ####[facility] [address] [place], [address] Sodium [Moles/Vol] 140 mmol/L Normal 133-145 [facility] Comment on above: Performed By: #### L 100.0100, L501.9100, L700.6800, L500.4050, L505.5000 ####[facility] [address] [place], [address] T PROT 7.5 g/dL Normal 5.9-8.4 [facility] Comment on above: Performed By: #### L 100.0100, L501.9100, L700.6800, L500.4050, L505.5000 ####[facility] [address] [place], [address] Urea nitrogen [Mass/Vol] 8 mg/dL Normal 4-19 [facility] Comment on above: Performed By: #### L 100.0100, L501.9100, L700.6800, L500.4050, L505.5000 ####[facility] [address] [place], [address] Emergency Department Summary on 05-25-2025 Emergency Department Summary Normal [facility] H AND P Exam - Hospitaliston 05-25-2025 H&P Exam - Hospitalist Normal [facility] Magnesiumon 05-25-2025 Magnesium [Mass/Vol] 1.6 mg/dL Normal 1.5-2.2 [facility] Comment on above: Performed By: #### L 501.5200 ####[facility] [address] [place], [address] Magnesium [Mass/Vol] 1.1 mg/dL Low 1.5-2.2 [facility] Comment on above: Order Comment: Comme nts: May add to ED labsComments: may add to ED labs Performed By: #### L 501.2300, L501.5200 ####[facility] [address] [place], [address] Magnesium measurement (mass/ volume)Ordered By: Myra Null on 05-25-2025 Magnesium (Unsp spec) [Mass/Vol] 1.1 mg/dL Low 1.5-2.2 [facility] Phosphoruson 05-25-2025 Phosphate [Mass/Vol] 4.5 mg/dL Normal 2.7-4.5 [facility] Comment on above: Order Comment: Comme nts: May add to ED labsComments: may add to ED labs Performed By: #### L 501.2300, L501.5200 ####[facility] [address] [place], [address] ,Serum,hCG Quali.on 05-25-2025 HCG, SERUM QUAL Negative Normal [facility] Comment on above: Performed By: #### L 100.0100, L501.9100, L700.6800, L500.4050, L505.5000 ####[facility] [address] [place], [address] Urinalysis, Completeon 05-25 EPI,SQUAMOUS 5-10 SEEN Normal 5-10 [facility] Comment on above: Order Comment: CLEAN CATCH Performed By: #### L 400.0001 ####[facility] [address] [place], [address] RBC 0-5 SEEN Normal 0-5 [facility] Comment on above: Order Comment: CLEAN CATCH Performed By: #### L 400.0001 ####[facility] [address] [place], [address] WBC 0-5 SEEN Normal 0-5 [facility] Comment on above: Order Comment: CLEAN CATCH Performed By: #### L 400.0001 ####[facility] [address] [facility] [address] BACTERIA 0 SEEN Normal None Seen [facility] Comment on above: Order Comment: CLEAN CATCH Performed By: #### L 400.0001 ####[facility] [address] [facility] [address] Mucus Ql (Urine sed) [address] [facility] Comment on above: Order Comment: CLEAN CATCH Performed By: #### L 400.0001 ####[facility] [address] [place] [address] Urine Drug Screen (VISTA)on 05-25-2025 AMPHETAMINES Negative Normal <1000 ng/mL [facility] Comment on above: Performed By: #### L 100.0100, L501.9100, L700.6800, L500.4050, L505.5000 ####[facility] [address] [place] [address] BARBITIURATES Positive Normal < 200 ng/mL [facility] Comment on above: Result Comment: If c onfirmation testing is needed, a separate order will berequired to send out testing to the reference laboratory. Performed By: #### L 100.0100, L501.9100, L700.6800, L500.4050, L505.5000 ####[facility] [address] [facility] [address] BENZODIAZIPINE Positive Normal < 200 ng/mL [facility] Comment on above: Result Comment: If c onfirmation testing is needed, a separate order will berequired to send out testing to the reference laboratory. Performed By: #### L 100.0100, L501.9100, L700.6800, L500.4050, L505.5000 ####[facility] [address] [place] [address] BUP Ur Drug Scr Negative Normal < 200 ng/mL [facility] Comment on above: Performed By: #### L 100.0100, L501.9100, L700.6800, L500.4050, L505.5000 ####[facility] [address] [place] [address] COCAINE Negative Normal < 300 ng/mL [facility] Comment on above: Performed By: #### L 100.0100, L501.9100, L700.6800, L500.4050, L505.5000 ####[facility] [address] [place] [address] Fentanyl Negative Normal [facility] Comment on above: Performed By: #### L 100.0100, L501.9100, L700.6800, L500.4050, L505.5000 ####[facility] [address] [place] [address] METHADONE Negative Normal < 300 ng/mL [facility] Comment on above: Performed By: #### L 100.0100, L501.9100, L700.6800, L500.4050, L505.5000 ####[facility] [address] [place] [address] OPIATES Negative Normal < 300 ng/mL [facility] Comment on above: Performed By: #### L 100.0100, L501.9100, L700.6800, L500.4050, L505.5000 ####[facility] [address] [place] [address] OXYCODONE Negative Normal < 100 ng/mL [facility] Comment on above: Performed By: #### L 100.0100, L501.9100, L700.6800, L500.4050, L505.5000 ####[facility] [address] [place] [id number] PCP Negative Normal < 25 ng/mL [facility] Comment on above: Performed By: #### L 100.0100, L501.9100, L700.6800, L500.4050, L505.5000 ####[facility] [address] [place], [address] THC Negative Normal < 50 ng/mL [facility] Comment on above: Performed By: #### L 100.0100, L501.9100, L700.6800, L500.4050, L505.5000 ####[facility] [address] [place], [address] Absolute lymphocyte countOrd ered By: Andrew Maurice on 05-24-2025 Lymphocytes Auto (Unsp spec) [#/Vol] 3.57 10*3/uL 0.83-4.51 [facility] Absolute neutrophil countOrd ered By: Andrew Maurice on 05-24-2025 Neutrophils (Bld) [#/Vol] 4.3 10*3/uL 2.0-7.7 [facility] Amphetamine detection with 1 000 ng/mL as cutoffOrdered By: Andrew Maurice on 05-24-2025 Amphetamines Screen method >1000 ng/mL Ql (U) Negative <1000 ng/mL [facility] Amphetamines Screen method >1000 ng/mL Ql (U) Positive < 200 ng/mL [facility] Comment on above: If confirmation test ing is needed, a separate order will be required to send out testing to the reference laboratory. Anion gap in Serum or Plasma Ordered By: Andrew Maurice on 05-24-2025 Anion gap [Moles/Vol] 21 mmol/L High 5-15 [facility] Automated lymphocyte count a s percentage of total leukocytesOrdered By: Andrew Maurice on 05-24-2025 Lymphocytes/100 WBC Auto (Unsp spec) 41.1 % High 19-41 [facility] BUN/creatinine ratioOrdered By: Andrew Maurice on 05-24-2025 Urea nitrogen/Creatinine [Mass ratio] 11.4 mg/mg 10-20 [facility] Basophil percentageOrdered B y: Andrew Maurice on 05-24-2025 Basophils/100 WBC (Bld) 0.5 % 0-1 [facility] Bilirubin Test strip Ql (U)O rdered By: Andrew Maurice on 05-24-2025 Bilirubin Ql (U) Negative Negative [facility] Bilirubin, totalOrdered By: Andrew Maurice on 05-24-2025 Bilirubin [Mass/Vol] 0.37 mg/dL 0.00-1.30 [facility] Carbon dioxide, total [Moles /volume] in Central venous bloodOrdered By: Andrew Maurice on 05-24-2025 CO2 [Moles/Vol] 20.9 mmol/L Low 21.0-32.0 [facility] Chloride assayOrdered By: Yusef Maurice on 05-24-2025 Chloride [Moles/Vol] 98 mmol/L 98-108 [facility] Eosinophil percentageOrdered By: Andrew Maurice on 05-24-2025 Eosinophils/100 WBC (Bld) 0.7 % 0-5 [facility] Erythrocyte distribution wid th ratioOrdered By: Andrew Maurice on 05-24-2025 Erythrocyte distribution width (RBC) [Ratio] 13.1 % 11.6-14.6 [facility] Erythrocyte distribution wid th standard deviationOrdered By: Andrew Small on 05-24-2025 Erythrocyte distribution width (RBC) [Ratio] 47.9 fl High 35.1-43.9 [facility] Glomerular filtration rate ( GFR) estimation/1.73 sq m using serum, plasma, or whole bOrdered By: Andrew Maurice on 05-24-2025 GFR/1.73 sq M.predicted among non-blacks MDRD (S/P/Bld) [Vol rate/Area] 104 mL/min/{1.73_m2} >60 [facility] Comment on above: mL/min/1.73m2 CKD-EP I Creatinine Equation (2020) Hematocrit Auto (Bld) [Volum e fraction]Ordered By: Andrew Maurice on 05-24-2025 Hematocrit (Bld) [Volume fraction] 38.3 % 37-47 [facility] Hemoglobin measurementOrdere d By: Andrew Maurice on 05-24-2025 Hemoglobin (Bld) [Mass/Vol] 13.2 g/dL 12.0-15.0 [facility] Immature granulocytes/100 WB C Auto (Bld)Ordered By: Andrew Maurice on 05-24-2025 Immature granulocytes/100 WBC (Bld) 0.100 % 0.0-0.9 [facility] Comment on above: IG% - Immature Granu locytes (promyelocytes, myelocytes and metamyelocytes) > 1% indicates that a LEFT SHIFT is Present. Ketones Test strip Ql (U)Ord ered By: Andrew Maurice on 05-24-2025 Ketones Ql (U) 5 mg/dl High Negative [facility] Laboratory - Chemistry and C hemistry - challengeOrdered By: Andrewmark Maurice on 05-24-2025 AST [Catalytic activity/Vol] 45 U/L High <32 [facility] Comment on above: Hemolysis present, R esults could be affected. MCV (mean corpuscular volume ) determinationOrdered By: Andrew Maurice on 05-24-2025 MCV (RBC) [Entitic vol] 100.3 fL High 81-99 [facility] Mean corpuscular hemoglobin (MCH) determinationOrdered By: Andrew Maurice on 05-24-2025 MCH (RBC) [Entitic mass] 34.6 pg High 27.0-32.0 [facility] Mean corpuscular hemoglobin concentration (MCHC) determinationOrdered By: Andrew Maurice on 05-24-2025 MCHC (RBC) [Mass/Vol] 34.5 g/dL 32-36 [facility] Mean platelet volume determi nationOrdered By: Andrew Maurice on 05-24-2025 Platelet mean volume (Bld) [Entitic vol] 10.0 fL 6.2-12.0 [facility] Microscopic analysis of urin e for red blood cells (RBC)Ordered By: Andrew Maurice on 05-24-2025 Microscopic analysis of urine for red blood cells (RBC) 0-5 SEEN /hpf 0-5 [facility] Monocyte percentageOrdered B y: Andrew Maurice on 05-24-2025 Monocytes/100 WBC (Bld) 7.7 % 0-10 [facility] Mucus LM Ql (Urine sed)Order ed By: Andrew Maurice on 05-24-2025 Mucus Ql (Urine sed) 0 SEEN /hpf [facility] Neutrophil percentageOrdered By: Andrew Maurice on 05-24-2025 Neutrophils/100 WBC (Bld) 49.9 % 47-70 [facility] Nitrite Test strip Ql (U)Ord ered By: Andrew Maurice on 05-24-2025 Nitrite Ql (U) Negative Negative [facility] No Panel InformationOrdered By: Andrew Maurice on 05-24-2025 Urine Buprenorphine Qualitative Negative < 200 ng/mL [facility] Urine Oxycodone Screen Negative < 100 ng/mL [facility] 45 U/L High <32 [facility] Negative < 200 ng/mL [facility] Nucleated red blood cell per centageOrdered By: Andrew Maurice on 05-24-2025 Nucleated RBC/100 WBC (Bld) [Ratio] 0 % 0-5 [facility] Platelet countOrdered By: Yusef Maurice on 05-24-2025 Platelets (Bld) [#/Vol] 187 10*3/uL 150-450 [facility] Potassium measurement (mass/ volume)Ordered By: Andrew Maurice on 05-24-2025 Potassium (Unsp spec) [Mass/Vol] 4.1 mmol/L 3.3-5.1 [facility] Comment on above: Hemolysis present, R esults could be affected. Protein Test strip Ql (U)Ord ered By: Andrew Maurice on 05-24-2025 Protein Ql (U) 30 mg/dl High Negative [facility] Quantitative urine opiates m easurementOrdered By: Andrew Maurice on 05-24-2025 Opiates Ql (U) Negative < 300 ng/mL [facility] RBC Auto (Bld) [#/Vol]Ordere d By: Andrew Maurice on 05-24-2025 RBC (Bld) [#/Vol] 3.82 10*6/uL Low 4.2-5.4 [facility] Screening urine fentanyl alexis surementOrdered By: Andrew Maurice on 05-24-2025 fentaNYL Screen Ql (U) Negative [facility] Serum beta-hCG test, qualita tiveOrdered By: Andrew Maurice on 05-24-2025 Beta HCG ( test) Ql Negative [facility] Serum creatinine measurement (mass/volume)Ordered By: Andrew Maurice on 05-24-2025 Creatinine [Mass/Vol] 0.72 mg/dL 0.70-1.20 [facility] Serum globulin measurementOr dered By: Andrew Maurice on 05-24-2025 Globulin (S) [Mass/Vol] 3.4 g/dL 2.2-4.2 [facility] Serum glucose measurement (m ass/volume)Ordered By: Andrew Maurice on 05-24-2025 Glucose [Mass/Vol] 84 mg/dL 70-99 [facility] Serum or plasma alanine wilkerson otransferase (ALT) measurementOrdered By: Andrew Maurice on 05-24-2025 ALT [Catalytic activity/Vol] 29 U/L <35 [facility] Serum or plasma albumin alphonso urement (mass/volume)Ordered By: Andrew Small on 05-24-2025 Albumin [Mass/Vol] 4.1 g/dL 3.5-5.0 [facility] Serum or plasma albumin/glob ulin mass ratioOrdered By: Andrew Maurice on 05-24-2025 Albumin/Globulin [Mass ratio] 1.2 {ratio} 0.9-2.4 [facility] Serum or plasma alkaline trinity sphatase measurementOrdered By: Andrew Maurice on 05-24-2025 ALP [Catalytic activity/Vol] 115 U/L High 35-104 [facility] Serum or plasma calcium alphonso urement (mass/volume)Ordered By: Andrew Small on 05-24-2025 Calcium [Mass/Vol] 8.7 mg/dL 7.6-11.0 [facility] Serum or plasma ethanol alphonso urement (mass/volume)Ordered By: Andrew Small on 05-24-2025 Ethanol [Mass/Vol] 312.0 mg/dL Critically high <10.1 [facility] Comment on above: Critical Result(s) C alled at 0100: by: OTTO TO LSPARR Results read back by same.This test is for medical purposes only. The legal definition of intoxication varies according to local law. Serum or plasma urea nitroge n measurement (mass/volume)Ordered By: Andrew Maurice on 05-24-2025 Urea nitrogen [Mass/Vol] 8 mg/dL 4-19 [facility] Sodium levelOrdered By: Aflie Maurice on 05-24-2025 Sodium [Moles/Vol] 140 mmol/L 133-145 [facility] Squamous epithelial cells de tection in urine sediment by light microscopyOrdered By: Andrew Maurice on 05-24-2025 Epithelial cells.squamous LM Ql (Urine sed) 5-10 SEEN /hpf 5-10 [facility] Total proteinOrdered By: Last Maurice on 05-24-2025 Protein [Mass/Vol] 7.5 g/dL 5.9-8.4 [facility] Urine benzodiazepine levelOr dered By: Andrew Maurice on 05-24-2025 Benzodiazepines Ql (U) Positive < 200 ng/mL [facility] Comment on above: If confirmation test ing is needed, a separate order will be required to send out testing to the reference laboratory. Urine clarityOrdered By: Lats Maurice on 05-24-2025 Clarity (U) Clear Clear [facility] Urine cocaine levelOrdered B y: Andrew Maurice on 05-24-2025 Cocaine Ql (U) Negative < 300 ng/mL [facility] Urine color determinationOrd ered By: Andrew Maurice on 05-24-2025 Color (U) Yellow Yellow [facility] Urine ufqrn-2-swhxghmtyelggf abinol (THC) measurementOrdered By: Andrew Small on 05-24-2025 Cannabinoids Screen Ql (U) Negative < 50 ng/mL [facility] Urine glucose detectionOrder ed By: Andrew Maurice on 05-24-2025 Glucose Ql (U) Normal mg/dl Normal [facility] Urine leukocyte esterase det ection by dipstickOrdered By: Andrew Maurice on 05-24-2025 Leukocyte esterase Test strip Ql (U) 25 /ul High Negative [facility] Urine pHOrdered By: Andrew Barrera on 05-24-2025 pH (U) 6.0 [pH] 5.0 - 8.0 [facility] Urine phencyclidine (PCP) de tectionOrdered By: Andrew Maurice on 05-24-2025 Phencyclidine Ql (U) Negative < 25 ng/mL [facility] Urine sediment bacteria coun t by microscopy (number/high power field)Ordered By: Andrew Maurice on 05-24-2025 Bacteria LM.HPF (Urine sed) [#/Area] 0 /[HPF] None Seen [facility] Urine specific gravity measu rementOrdered By: Andrew Maurice on 05-24-2025 Specific gravity (U) [Rel density] 1.015 1.002-1.030 [facility] Urine urobilinogen measureme ntOrdered By: Andrew Maurice on 05-24-2025 Urobilinogen Ql (U) Normal mg/dl Normal [facility] White blood cell (WBC) count Ordered By: Andrew Maurice on 05-24-2025 WBC (Bld) [#/Vol] 8.7 10*3/uL 4.4-11.0 [facility] White blood cell countOrdere d By: Andrew Maurice on 05-24-2025 White blood cell count 0-5 SEEN /hpf 0-5 [facility] Bedside Glucoseon 05-06-2025 FINGERSTICK GLU 358 mg/dL High 74-106 [facility] Comment on above: Result Comment: CHAUNCEY GEMENT OF PATIENT CARE PER NURSING PROTOCOL Performed By: #### L 501.080 ####[facility] [address] [facility] [address] FINGERSTICK GLU 219 mg/dL High 74-106 [facility] Comment on above: Result Comment: CHAUNCEY GEMENT OF PATIENT CARE PER NURSING PROTOCOL Performed By: #### L 501.080 ####[facility] [address] [facility] [address] Discharge Instructionon 06- Discharge Instruction Normal [facility] deOrdered By: Mao Becker on 05-06-2025 Glucose [Mass/Vol] 358 mg/dL High 74-106 [facility] Comment on above: MANAGEMENT OF PATIEN T CARE PER NURSING PROTOCOL Bedside Glucoseon 05-05-2025 FINGERSTICK GLU 331 mg/dL High 74-106 [facility] Comment on above: Result Comment: CHAUNCEY GEMENT OF PATIENT CARE PER NURSING PROTOCOL Performed By: #### L 501.080 ####[facility] [address] [facility] [address] FINGERSTICK GLU 257 mg/dL High 74-106 [facility] Comment on above: Result Comment: CHAUNCEY GEMENT OF PATIENT CARE PER NURSING PROTOCOL Performed By: #### L 501.080 ####[facility] [address] [place], [address] FINGERSTICK GLU 346 mg/dL High 74-106 [facility] Comment on above: Result Comment: CHAUNCEY GEMENT OF PATIENT CARE PER NURSING PROTOCOL Performed By: #### L 501.080 ####[facility] [address] [place], [address] FINGERSTICK GLU 221 mg/dL High 74-106 [facility] Comment on above: Result Comment: CHAUNCEY GEMENT OF PATIENT CARE PER NURSING PROTOCOL Performed By: #### L 501.080 ####[facility] [address] [place], [address] Absolute lymphocyte countOrd ered By: Canelo Myers on 05-04-2025 Lymphocytes Auto (Unsp spec) [#/Vol] 1.36 10*3/uL 0.83-4.51 [facility] Absolute neutrophil countOrd ered By: Canelo Myers on 05-04-2025 Neutrophils (Bld) [#/Vol] 3.4 10*3/uL 2.0-7.7 [facility] Anion gap in Serum or Plasma Ordered By: Canelo Myers on 05-04-2025 Anion gap [Moles/Vol] 11 mmol/L 5-15 [facility] Automated lymphocyte count a s percentage of total leukocytesOrdered By: Canelo Myers on 05-04-2025 Lymphocytes/100 WBC Auto (Unsp spec) 23.0 % 19-41 [facility] BUN/creatinine ratioOrdered By: Canelo Myers on 05-04-2025 Urea nitrogen/Creatinine [Mass ratio] 9.6 mg/mg Low 10-20 [facility] Basophil percentageOrdered B y: Canelo Myers on 05-04-2025 Basophils/100 WBC (Bld) 0.5 % 0-1 [facility] Bedside Glucoseon 05-04-2025 FINGERSTICK GLU 299 mg/dL High 74-106 [facility] Comment on above: Result Comment: CHAUNCEY GEMENT OF PATIENT CARE PER NURSING PROTOCOL Performed By: #### L 501.080 ####[facility] [address] [place], [address] FINGERSTICK GLU 299 mg/dL High 74-106 [facility] Comment on above: Result Comment: CHAUNCEY GEMENT OF PATIENT CARE PER NURSING PROTOCOL Performed By: #### L 501.080 ####[facility] [address] [place], [address] FINGERSTICK GLU 245 mg/dL High 74-106 [facility] Comment on above: Result Comment: CHAUNCEY GEMENT OF PATIENT CARE PER NURSING PROTOCOL Performed By: #### L 501.080 ####[facility] [address] [place], [address] FINGERSTICK GLU 170 mg/dL High 74-106 [facility] Comment on above: Result Comment: CHAUNCEY GEMENT OF PATIENT CARE PER NURSING PROTOCOL Performed By: #### L 501.080 ####[facility] [address] [place], [address] Bilirubin, totalOrdered By: Canelo Myers on 05-04-2025 Bilirubin [Mass/Vol] 0.35 mg/dL 0.00-1.30 [facility] CBC W/Diff, Automatedon Absolute Lymph 1.36 X10 3/uL Normal 0.83-4.51 [facility] Comment on above: Performed By: #### L 100.0100, L500.4050 ####[facility] [address] [place], [address] Absolute Neut 3.4 X10 3/uL Normal 2.0-7.7 [facility] Comment on above: Performed By: #### L 100.0100, L500.4050 ####[facility] [address] [place], [address] Basophils/100 WBC (Bld) 0.5 % Normal 0-1 [facility] Comment on above: Performed By: #### L 100.0100, L500.4050 ####[facility] [address] [place], [address] Eosinophils/100 WBC (Bld) 2.7 % Normal 0-5 [facility] Comment on above: Performed By: #### L 100.0100, L500.4050 ####[facility] [address] [place], [address] Erythrocyte distribution width (RBC) [Ratio] 12.8 % Normal 11.6-14.6 [facility] Comment on above: Performed By: #### L 100.0100, L500.4050 ####[facility] [address] [place], [address] Hematocrit (Bld) [Volume fraction] 30.6 % Low 37-47 [facility] Comment on above: Performed By: #### L 100.0100, L500.4050 ####[facility] [address] [place], [address] Hemoglobin (Bld) [Mass/Vol] 10.3 g/dL Low 12.0-15.0 [facility] Comment on above: Performed By: #### L 100.0100, L500.4050 ####[facility] [address] [place], [address] IG% 0.300 Normal 0.0-0.9 [facility] Comment on above: Result Comment: IG% - Immature Granulocytes (promyelocytes, myelocytes andmetamyelocytes) > 1% indicates that a LEFT SHIFT is Present. Performed By: #### L 100.0100, L500.4050 ####[facility] [address] [place], [address] Lymphocytes/100 WBC (Bld) 23.0 % Normal 19-41 [facility] Comment on above: Performed By: #### L 100.0100, L500.4050 ####[facility] [address] [place], [address] MCH (RBC) [Entitic mass] 35.8 pg High 27.0-32.0 [facility] Comment on above: Performed By: #### L 100.0100, L500.4050 ####[facility] [address] [place], [address] MCHC (RBC) [Mass/Vol] 33.7 g/dL Normal 32-36 [facility] Comment on above: Performed By: #### L 100.0100, L500.4050 ####[facility] [address] [place], [address] MCV (RBC) [Entitic vol] 106.3 fL High 81-99 [facility] Comment on above: Performed By: #### L 100.0100, L500.4050 ####[facility] [address] [place], [address] Monocytes/100 WBC (Bld) 15.4 % High 0-10 [facility] Comment on above: Performed By: #### L 100.0100, L500.4050 ####[facility] [address] [place], [address] Neutrophils/100 WBC (Bld) 58.1 % Normal 47-70 [facility] Comment on above: Performed By: #### L 100.0100, L500.4050 ####[facility] [address] [place], [address] Nucleated RBC (Bld) [#/Vol] 0 10*3/uL Normal 0-5 [facility] Comment on above: Performed By: #### L 100.0100, L500.4050 ####[facility] [address] [place], [address] Platelet mean volume (Bld) [Entitic vol] 10.3 fL Normal 6.2-12.0 [facility] Comment on above: Performed By: #### L 100.0100, L500.4050 ####[facility] [address] [place], [address] Platelets (Bld) [#/Vol] 376 10*3/uL Normal 150-450 [facility] Comment on above: Performed By: #### L 100.0100, L500.4050 ####[facility] [address] [place], [address] RBC (Bld) [#/Vol] 2.88 10*6/uL Low 4.2-5.4 [facility] Comment on above: Performed By: #### L 100.0100, L500.4050 ####[facility] [address] [place], [address] RDW SD 49.9 fl High 35.1-43.9 [facility] Comment on above: Performed By: #### L 100.0100, L500.4050 ####[facility] [address] [place], [address] WBC (Bld) [#/Vol] 5.9 10*3/uL Normal 4.4-11.0 [facility] Comment on above: Performed By: #### L 100.0100, L500.4050 ####[facility] [address] [place], [address] Carbon dioxide, total [Moles /volume] in Central venous bloodOrdered By: Canelo Myers on 05-04-2025 CO2 [Moles/Vol] 27.3 mmol/L 21.0-32.0 [facility] Chloride assayOrdered By: Henrry Myers on 05-04-2025 Chloride [Moles/Vol] 96 mmol/L Low 98-108 [facility] Comprehensive Metabolic Prof ilon 05-04-2025 Albumin [Mass/Vol] 3.4 g/dL Low 3.5-5.0 [facility] Comment on above: Performed By: #### L 100.0100, L500.4050 ####[facility] [address] [place], [address] Albumin/Globulin [Mass ratio] 1.1 {ratio} Normal 0.9-2.4 [facility] Comment on above: Performed By: #### L 100.0100, L500.4050 ####[facility] [address] [place], [address] ALK PHOS 441 U/L High 35-104 [facility] Comment on above: Performed By: #### L 100.0100, L500.4050 ####[facility] [address] [place], [address] ALT [Catalytic activity/Vol] 45 U/L High <=34 [facility] Comment on above: Performed By: #### L 100.0100, L500.4050 ####[facility] [address] [place], [address] AST [Catalytic activity/Vol] 51 U/L High <=31 [facility] Comment on above: Performed By: #### L 100.0100, L500.4050 ####[facility] [address] [place], [address] Bilirubin [Mass/Vol] 0.35 mg/dL Normal 0.00-1.30 [facility] Comment on above: Performed By: #### L 100.0100, L500.4050 ####[facility] [address] [place], [address] BUN/CRE 9.6 RATIO Low 10-20 [facility] Comment on above: Performed By: #### L 100.0100, L500.4050 ####[facility] [address] [place], [address] Calcium [Mass/Vol] 9.3 mg/dL Normal 7.6-11.0 [facility] Comment on above: Performed By: #### L 100.0100, L500.4050 ####[facility] [address] [place], [address] Chloride [Moles/Vol] 96 mmol/L Low 98-108 [facility] Comment on above: Performed By: #### L 100.0100, L500.4050 ####[facility] [address] [place], [address] CO2 [Moles/Vol] 27.3 mmol/L Normal 21.0-32.0 [facility] Comment on above: Performed By: #### L 100.0100, L500.4050 ####[facility] [address] [place], [address] Creatinine [Mass/Vol] 0.63 mg/dL Low 0.70-1.20 [facility] Comment on above: Performed By: #### L 100.0100, L500.4050 ####[facility] [address] [place], [address] ECRCL 94.30 ml/min Normal 50-250 [facility] Comment on above: Performed By: #### L 100.0100, L500.4050 ####[facility] [address] [place], [address] GAP 11 Normal 5-15 [facility] Comment on above: Performed By: #### L 100.0100, L500.4050 ####[facility] [address] [place], [address] GFR/1.73 sq M.predicted among non-blacks MDRD (S/P/Bld) [Vol rate/Area] 109 mL/min/{1.73_m2} Normal >60 [facility] Comment on above: Result Comment: mL/m in/1.73m2 CKD-EPI Creatinine Equation (2020) Performed By: #### L 100.0100, L500.4050 ####[facility] [address] [place], [address] Globulin (S) [Mass/Vol] 2.9 g/dL Normal 2.2-4.2 [facility] Comment on above: Performed By: #### L 100.0100, L500.4050 ####[facility] [address] [place], [address] Glucose [Mass/Vol] 171 mg/dL High 70-99 [facility] Comment on above: Performed By: #### L 100.0100, L500.4050 ####[facility] [address] [place], [address] Potassium [Moles/Vol] 4.7 mmol/L Normal 3.3-5.1 [facility] Comment on above: Performed By: #### L 100.0100, L500.4050 ####[facility] [address] [place], [address] Sodium [Moles/Vol] 134 mmol/L Normal 133-145 [facility] Comment on above: Performed By: #### L 100.0100, L500.4050 ####[facility] [address] [place], [address] T PROT 6.3 g/dL Normal 5.9-8.4 [facility] Comment on above: Performed By: #### L 100.0100, L500.4050 ####[facility] [address] [place], [address] Urea nitrogen [Mass/Vol] 6 mg/dL Normal 4-19 [facility] Comment on above: Performed By: #### L 100.0100, L500.4050 ####[facility] [address] [place], [address] Eosinophil percentageOrdered By: Canelo Myers on 05-04-2025 Eosinophils/100 WBC (Bld) 2.7 % 0-5 [facility] Erythrocyte distribution wid th ratioOrdered By: Canelo Myers on 05-04-2025 Erythrocyte distribution width (RBC) [Ratio] 12.8 % 11.6-14.6 [facility] Erythrocyte distribution wid th standard deviationOrdered By: Canelo Myers on 05-04-2025 Erythrocyte distribution width (RBC) [Ratio] 49.9 fl High 35.1-43.9 [facility] Glomerular filtration rate ( GFR) estimation/1.73 sq m using serum, plasma, or whole bOrdered By: Canelo Myers on 05-04-2025 GFR/1.73 sq M.predicted among non-blacks MDRD (S/P/Bld) [Vol rate/Area] 109 mL/min/{1.73_m2} >60 [facility] Comment on above: mL/min/1.73m2 CKD-EP I Creatinine Equation (2020) Hematocrit Auto (Bld) [Volum e fraction]Ordered By: Canelo Myers on 05-04-2025 Hematocrit (Bld) [Volume fraction] 30.6 % Low 37-47 [facility] Hemoglobin measurementOrdere d By: Canelo Myers on 05-04-2025 Hemoglobin (Bld) [Mass/Vol] 10.3 g/dL Low 12.0-15.0 [facility] Immature granulocytes/100 WB C Auto (Bld)Ordered By: Canelo Myers on 05-04-2025 Immature granulocytes/100 WBC (Bld) 0.300 % 0.0-0.9 [facility] Comment on above: IG% - Immature Granu locytes (promyelocytes, myelocytes and metamyelocytes) > 1% indicates that a LEFT SHIFT is Present. Laboratory - Chemistry and C hemistry - challengeOrdered By: Canelo Myers on 05-04-2025 AST [Catalytic activity/Vol] 51 U/L High <32 [facility] MCV (mean corpuscular volume ) determinationOrdered By: Canelo Myers on 05-04-2025 MCV (RBC) [Entitic vol] 106.3 fL High 81-99 [facility] Mean corpuscular hemoglobin (MCH) determinationOrdered By: Canelo Myers on 05-04-2025 MCH (RBC) [Entitic mass] 35.8 pg High 27.0-32.0 [facility] Mean corpuscular hemoglobin concentration (MCHC) determinationOrdered By: Canelo Myers on 05-04-2025 MCHC (RBC) [Mass/Vol] 33.7 g/dL 32-36 [facility] Mean platelet volume determi nationOrdered By: Canelo Myers on 05-04-2025 Platelet mean volume (Bld) [Entitic vol] 10.3 fL 6.2-12.0 [facility] Monocyte percentageOrdered B y: Canelo Myers on 05-04-2025 Monocytes/100 WBC (Bld) 15.4 % High 0-10 [facility] Neutrophil percentageOrdered By: Canelo Myers on 05-04-2025 Neutrophils/100 WBC (Bld) 58.1 % 47-70 [facility] No Panel InformationOrdered By: Canelo Myers on 05-04-2025 51 U/L High <32 [facility] Nucleated red blood cell per centageOrdered By: Canelo Myers on 05-04-2025 Nucleated RBC/100 WBC (Bld) [Ratio] 0 % 0-5 [facility] Platelet countOrdered By: Henrry Myers on 05-04-2025 Platelets (Bld) [#/Vol] 376 10*3/uL 150-450 [facility] Potassium measurement (mass/ volume)Ordered By: Canelo Myers on 05-04-2025 Potassium (Unsp spec) [Mass/Vol] 4.7 mmol/L 3.3-5.1 [facility] RBC Auto (Bld) [#/Vol]Ordere d By: Canelo Myers on 05-04-2025 RBC (Bld) [#/Vol] 2.88 10*6/uL Low 4.2-5.4 [facility] Serum creatinine measurement (mass/volume)Ordered By: Canelo Myers on 05-04-2025 Creatinine [Mass/Vol] 0.63 mg/dL Low 0.70-1.20 [facility] Serum globulin measurementOr dered By: Canelo Myers on 05-04-2025 Globulin (S) [Mass/Vol] 2.9 g/dL 2.2-4.2 [facility] [place] Serum glucose measurement (m ass/volume)Ordered By: Canelo Myers on 05-04-2025 Glucose [Mass/Vol] 171 mg/dL High 70-99 [facility] Serum or plasma alanine wilkerson otransferase (ALT) measurementOrdered By: Canelo Myers on 05-04-2025 ALT [Catalytic activity/Vol] 45 U/L High <35 [facility] Serum or plasma albumin alphonso urement (mass/volume)Ordered By: Canelo Myers on 05-04-2025 Albumin [Mass/Vol] 3.4 g/dL Low 3.5-5.0 [facility] Serum or plasma albumin/glob ulin mass ratioOrdered By: Canelo Myers on 05-04-2025 Albumin/Globulin [Mass ratio] 1.1 {ratio} 0.9-2.4 [facility] Serum or plasma alkaline trinity sphatase measurementOrdered By: Canelo Myers on 05-04-2025 ALP [Catalytic activity/Vol] 441 U/L High 35-104 [facility] Serum or plasma calcium alphonso urement (mass/volume)Ordered By: Canelo Myers on 05-04-2025 Calcium [Mass/Vol] 9.3 mg/dL 7.6-11.0 [facility] Serum or plasma urea nitroge n measurement (mass/volume)Ordered By: Canelo Myers on 05-04-2025 Urea nitrogen [Mass/Vol] 6 mg/dL 4-19 [facility] Sodium levelOrdered By: Ganesh Myers on 05-04-2025 Sodium [Moles/Vol] 134 mmol/L 133-145 [facility] Total proteinOrdered By: Guido Myers on 05-04-2025 Protein [Mass/Vol] 6.3 g/dL 5.9-8.4 [facility] White blood cell (WBC) count Ordered By: Canelo Myers on 05-04-2025 WBC (Bld) [#/Vol] 5.9 10*3/uL 4.4-11.0 [facility] Bedside Glucoseon 05-03-2025 FINGERSTICK GLU 230 mg/dL High 74-106 [facility] Comment on above: Result Comment: CHAUNCEY RIZO OF PATIENT CARE PER NURSING PROTOCOL Performed By: #### L 501.080 ####[facility] [address] [place], [address] FINGERSTICK GLU 237 mg/dL High 74-106 [facility] Comment on above: Result Comment: CHAUNCEY GEMENT OF PATIENT CARE PER NURSING PROTOCOL Performed By: #### L 501.080 ####[facility] [address] [place], [address] FINGERSTICK GLU 220 mg/dL High 74-106 [facility] Comment on above: Result Comment: CHAUNCEY GEMENT OF PATIENT CARE PER NURSING PROTOCOL Performed By: #### L 501.080 ####[facility] [address] [place], [address] CBC W/Diff, Automatedon 06-0 5-5 Absolute Lymph 1.14 X10 3/uL Normal 0.83-4.51 [facility] Comment on above: Performed By: #### L 100.0100, L500.4050 ####[facility] [address] [place], [address] Absolute Neut 3.5 X10 3/uL Normal 2.0-7.7 [facility] Comment on above: Performed By: #### L 100.0100, L500.4050 ####[facility] [address] [place], [address] Basophils/100 WBC (Bld) 0.7 % Normal 0-1 [facility] Comment on above: Performed By: #### L 100.0100, L500.4050 ####[facility] [address] [place], [address] Eosinophils/100 WBC (Bld) 3.1 % Normal 0-5 [facility] Comment on above: Performed By: #### L 100.0100, L500.4050 ####[facility] [address] [place], [address] Erythrocyte distribution width (RBC) [Ratio] 12.5 % Normal 11.6-14.6 [facility] Comment on above: Performed By: #### L 100.0100, L500.4050 ####[facility] [address] [place], [address] Hematocrit (Bld) [Volume fraction] 31.0 % Low 37-47 [facility] Comment on above: Performed By: #### L 100.0100, L500.4050 ####[facility] [address] [place], [address] Hemoglobin (Bld) [Mass/Vol] 10.4 g/dL Low 12.0-15.0 [facility] Comment on above: Performed By: #### L 100.0100, L500.4050 ####[facility] [address] [place], [address] IG% 0.300 Normal 0.0-0.9 [facility] Comment on above: Result Comment: IG% - Immature Granulocytes (promyelocytes, myelocytes andmetamyelocytes) > 1% indicates that a LEFT SHIFT is Present. Performed By: #### L 100.0100, L500.4050 ####[facility] [address] [place], [address] Lymphocytes/100 WBC (Bld) 19.7 % Normal 19-41 [facility] Comment on above: Performed By: #### L 100.0100, L500.4050 ####[facility] [address] [place], [address] MCH (RBC) [Entitic mass] 35.6 pg High 27.0-32.0 [facility] Comment on above: Performed By: #### L 100.0100, L500.4050 ####[facility] [address] [place], [address] MCHC (RBC) [Mass/Vol] 33.5 g/dL Normal 32-36 [facility] Comment on above: Performed By: #### L 100.0100, L500.4050 ####[facility] [address] [place], [address] MCV (RBC) [Entitic vol] 106.2 fL High 81-99 [facility] Comment on above: Performed By: #### L 100.0100, L500.4050 ####[facility] [address] [place], [address] Monocytes/100 WBC (Bld) 15.1 % High 0-10 [facility] Comment on above: Performed By: #### L 100.0100, L500.4050 ####[facility] [address] [place], [address] Neutrophils/100 WBC (Bld) 61.1 % Normal 47-70 [facility] Comment on above: Performed By: #### L 100.0100, L500.4050 ####[facility] [address] [place], [address] Nucleated RBC (Bld) [#/Vol] 0 10*3/uL Normal 0-5 [facility] Comment on above: Performed By: #### L 100.0100, L500.4050 ####[facility] [address] [place], [address] Platelet mean volume (Bld) [Entitic vol] 10.2 fL Normal 6.2-12.0 [facility] Comment on above: Performed By: #### L 100.0100, L500.4050 ####[facility] [address] [place], [address] Platelets (Bld) [#/Vol] 297 10*3/uL Normal 150-450 [facility] Comment on above: Performed By: #### L 100.0100, L500.4050 ####[facility] [address] [place], [address] RBC (Bld) [#/Vol] 2.92 10*6/uL Low 4.2-5.4 [facility] Comment on above: Performed By: #### L 100.0100, L500.4050 ####[facility] [address] [place], [address] RDW SD 49.1 fl High 35.1-43.9 [facility] Comment on above: Performed By: #### L 100.0100, L500.4050 ####[facility] [address] [place], [address] WBC (Bld) [#/Vol] 5.8 10*3/uL Normal 4.4-11.0 [facility] Comment on above: Performed By: #### L 100.0100, L500.4050 ####[facility] [address] [place], [address] Comprehensive Metabolic Prof [facility] 05-03-2025 Albumin [Mass/Vol] 3.1 g/dL Low 3.5-5.0 [facility] Comment on above: Performed By: #### L 100.0100, L500.4050 ####[facility] [address] [place], [address] Albumin/Globulin [Mass ratio] 1.1 {ratio} Normal 0.9-2.4 [facility] Comment on above: Performed By: #### L 100.0100, L500.4050 ####[facility] [address] [place], [address] ALK PHOS 311 U/L High 35-104 [facility] Comment on above: Performed By: #### L 100.0100, L500.4050 ####[facility] [address] [place], [address] ALT [Catalytic activity/Vol] 38 U/L High <=34 [facility] Comment on above: Performed By: #### L 100.0100, L500.4050 ####[facility] [address] [place], [address] AST [Catalytic activity/Vol] 48 U/L High <=31 [facility] Comment on above: Performed By: #### L 100.0100, L500.4050 ####[facility] [address] [place], [address] Bilirubin [Mass/Vol] 0.32 mg/dL Normal 0.00-1.30 [facility] Comment on above: Performed By: #### L 100.0100, L500.4050 ####[facility] [address] [place], [address] BUN/CRE 12.9 RATIO Normal 10-20 [facility] Comment on above: Performed By: #### L 100.0100, L500.4050 ####[facility] [address] [place], [address] Calcium [Mass/Vol] 8.5 mg/dL Normal 7.6-11.0 [facility] Comment on above: Performed By: #### L 100.0100, L500.4050 ####[facility] [address] [place], [address] Chloride [Moles/Vol] 97 mmol/L Low 98-108 [facility] Comment on above: Performed By: #### L 100.0100, L500.4050 ####[facility] [address] [place], [address] CO2 [Moles/Vol] 28.2 mmol/L Normal 21.0-32.0 [facility] Comment on above: Performed By: #### L 100.0100, L500.4050 ####[facility] [address] [place], [address] Creatinine [Mass/Vol] 0.58 mg/dL Low 0.70-1.20 [facility] Comment on above: Performed By: #### L 100.0100, L500.4050 ####[facility] [address] [place], [address] ECRCL 102.43 ml/min Normal 50-250 [facility] Comment on above: Performed By: #### L 100.0100, L500.4050 ####[facility] [address] [place], [address] GAP 9 Normal 5-15 [facility] Comment on above: Performed By: #### L 100.0100, L500.4050 ####[facility] [address] [place], [address] GFR/1.73 sq M.predicted among non-blacks MDRD (S/P/Bld) [Vol rate/Area] 112 mL/min/{1.73_m2} Normal >60 [facility] Comment on above: Result Comment: mL/m in/1.73m2 CKD-EPI Creatinine Equation (2020) Performed By: #### L 100.0100, L500.4050 ####[facility] [address] [place], [address] Globulin (S) [Mass/Vol] 2.8 g/dL Normal 2.2-4.2 [facility] Comment on above: Performed By: #### L 100.0100, L500.4050 ####[facility] [address] [place], [address] Glucose [Mass/Vol] 227 mg/dL High 70-99 [facility] Comment on above: Performed By: #### L 100.0100, L500.4050 ####[facility] [address] [place], [address] Potassium [Moles/Vol] 4.8 mmol/L Normal 3.3-5.1 [facility] Comment on above: Performed By: #### L 100.0100, L500.4050 ####[facility] [address] [place], [address] Sodium [Moles/Vol] 135 mmol/L Normal 133-145 [facility] Comment on above: Performed By: #### L 100.0100, L500.4050 ####[facility] [address] [place], [address] T PROT 5.9 g/dL Normal 5.9-8.4 [facility] Comment on above: Performed By: #### L 100.0100, L500.4050 ####[facility] [address] [place], [address] Urea nitrogen [Mass/Vol] 7 mg/dL Normal 4-19 [facility] Comment on above: Performed By: #### L 100.0100, L500.4050 ####[facility] [address] [place], [address] Bedside Glucoseon 05-02-2025 FINGERSTICK GLU 288 mg/dL High 74-106 [facility] Comment on above: Result Comment: CHAUNCEY GEMENT OF PATIENT CARE PER NURSING PROTOCOL Performed By: #### L 501.080 ####[facility] [address] [place], [address] FINGERSTICK GLU 198 mg/dL High 74-106 [facility] Comment on above: Result Comment: CHAUNCEY GEMENT OF PATIENT CARE PER NURSING PROTOCOL Performed By: #### L 501.080 ####[facility] [address] [place], [address] FINGERSTICK GLU 196 mg/dL High 74-106 [facility] Comment on above: Result Comment: CHAUNCEY GEMENT OF PATIENT CARE PER NURSING PROTOCOL Performed By: #### L 501.080 ####[facility] [address] [place], [address] CBC W/Diff, Automatedon 06-0 4-2024 Absolute Lymph 1.17 X10 3/uL Normal 0.83-4.51 [facility] Comment on above: Performed By: #### L 501.5200, L500.4050, L100.0100, L501.2300 ####[facility] [address] [place], [address] Absolute Neut 3.0 X10 3/uL Normal 2.0-7.7 [facility] Comment on above: Performed By: #### L 501.5200, L500.4050, L100.0100, L501.2300 ####[facility] [address] [place], [address] Basophils/100 WBC (Bld) 0.6 % Normal 0-1 [facility] Comment on above: Performed By: #### L 501.5200, L500.4050, L100.0100, L501.2300 ####[facility] [address] [place], [address] Eosinophils/100 WBC (Bld) 3.3 % Normal 0-5 [facility] Comment on above: Performed By: #### L 501.5200, L500.4050, L100.0100, L501.2300 ####[facility] [address] [place], [address] Erythrocyte distribution width (RBC) [Ratio] 12.5 % Normal 11.6-14.6 [facility] Comment on above: Performed By: #### L 501.5200, L500.4050, L100.0100, L501.2300 ####[facility] [address] [place], [address] Hematocrit (Bld) [Volume fraction] 30.1 % Low 37-47 [facility] Comment on above: Performed By: #### L 501.5200, L500.4050, L100.0100, L501.2300 ####[facility] [address] [place], [address] Hemoglobin (Bld) [Mass/Vol] 10.4 g/dL Low 12.0-15.0 [facility] Comment on above: Performed By: #### L 501.5200, L500.4050, L100.0100, L501.2300 ####[facility] [address] [place], [address] IG% 0.600 Normal 0.0-0.9 [facility] Comment on above: Result Comment: IG% - Immature Granulocytes (promyelocytes, myelocytes andmetamyelocytes) > 1% indicates that a LEFT SHIFT is Present. Performed By: #### L 501.5200, L500.4050, L100.0100, L501.2300 ####[facility] [address] [place], [address] Lymphocytes/100 WBC (Bld) 22.5 % Normal 19-41 [facility] Comment on above: Performed By: #### L 501.5200, L500.4050, L100.0100, L501.2300 ####[facility] [address] [place], [address] MCH (RBC) [Entitic mass] 36.9 pg High 27.0-32.0 [facility] Comment on above: Performed By: #### L 501.5200, L500.4050, L100.0100, L501.2300 ####[facility] [address] [place], [address] MCHC (RBC) [Mass/Vol] 34.6 g/dL Normal 32-36 [facility] Comment on above: Performed By: #### L 501.5200, L500.4050, L100.0100, L501.2300 ####[facility] [address] [place], [address] MCV (RBC) [Entitic vol] 106.7 fL High 81-99 [facility] Comment on above: Performed By: #### L 501.5200, L500.4050, L100.0100, L501.2300 ####[facility] [address] [place], [address] Monocytes/100 WBC (Bld) 15.8 % High 0-10 [facility] Comment on above: Performed By: #### L 501.5200, L500.4050, L100.0100, L501.2300 ####[facility] [address] [place], [address] Neutrophils/100 WBC (Bld) 57.2 % Normal 47-70 [facility] Comment on above: Performed By: #### L 501.5200, L500.4050, L100.0100, L501.2300 ####[facility] [address] [place], [address] Nucleated RBC (Bld) [#/Vol] 0 10*3/uL Normal 0-5 [facility] Comment on above: Performed By: #### L 501.5200, L500.4050, L100.0100, L501.2300 ####[facility] [address] [place], [address] Platelet mean volume (Bld) [Entitic vol] 10.3 fL Normal 6.2-12.0 [facility] Comment on above: Performed By: #### L 501.5200, L500.4050, L100.0100, L501.2300 ####[facility] [address] [place], [address] Platelets (Bld) [#/Vol] 247 10*3/uL Normal 150-450 [facility] Comment on above: Performed By: #### L 501.5200, L500.4050, L100.0100, L501.2300 ####[facility] [address] [place], [address] RBC (Bld) [#/Vol] 2.82 10*6/uL Low 4.2-5.4 [facility] Comment on above: Performed By: #### L 501.5200, L500.4050, L100.0100, L501.2300 ####[facility] [address] [place], [address] RDW SD 49.4 fl High 35.1-43.9 [facility] Comment on above: Performed By: #### L 501.5200, L500.4050, L100.0100, L501.2300 ####[facility] [address] [place], [address] WBC (Bld) [#/Vol] 5.2 10*3/uL Normal 4.4-11.0 [facility] Comment on above: Performed By: #### L 501.5200, L500.4050, L100.0100, L501.2300 ####[facility] [address] [place], [address] Comprehensive Metabolic [facility] 05-02-2025 Albumin [Mass/Vol] 3.1 g/dL Low 3.5-5.0 [facility] Comment on above: Performed By: #### L 501.5200, L500.4050, L100.0100, L501.2300 ####[facility] [address] [place], [address] Albumin/Globulin [Mass ratio] 1.2 {ratio} Normal 0.9-2.4 [facility] Comment on above: Performed By: #### L 501.5200, L500.4050, L100.0100, L501.2300 ####[facility] [address] [place], [address] ALK PHOS 230 U/L High 35-104 [facility] Comment on above: Performed By: #### L 501.5200, L500.4050, L100.0100, L501.2300 ####[facility] [address] [place], [address] ALT [Catalytic activity/Vol] 33 U/L Normal <=34 [facility] Comment on above: Performed By: #### L 501.5200, L500.4050, L100.0100, L501.2300 ####[facility] [address] [place], [address] AST [Catalytic activity/Vol] 40 U/L High <=31 [facility] Comment on above: Performed By: #### L 501.5200, L500.4050, L100.0100, L501.2300 ####[facility] [address] [place], [address] Bilirubin [Mass/Vol] 0.49 mg/dL Normal 0.00-1.30 [facility] Comment on above: Performed By: #### L 501.5200, L500.4050, L100.0100, L501.2300 ####[facility] [address] [place], [address] BUN/CRE 13.6 RATIO Normal 10-20 [facility] Comment on above: Performed By: #### L 501.5200, L500.4050, L100.0100, L501.2300 ####[facility] [address] [place], [address] Calcium [Mass/Vol] 8.7 mg/dL Normal 7.6-11.0 [facility] Comment on above: Performed By: #### L 501.5200, L500.4050, L100.0100, L501.2300 ####[facility] [address] [place], [address] Chloride [Moles/Vol] 95 mmol/L Low 98-108 [facility] Comment on above: Performed By: #### L 501.5200, L500.4050, L100.0100, L501.2300 ####[facility] [address] [place], [address] CO2 [Moles/Vol] 28.5 mmol/L Normal 21.0-32.0 [facility] Comment on above: Performed By: #### L 501.5200, L500.4050, L100.0100, L501.2300 ####[facility] [address] [place], [address] Creatinine [Mass/Vol] 0.52 mg/dL Low 0.70-1.20 [facility] Comment on above: Performed By: #### L 501.5200, L500.4050, L100.0100, L501.2300 ####[facility] [address] [place], [address] ECRCL 114.25 ml/min Normal 50-250 [facility] Comment on above: Performed By: #### L 501.5200, L500.4050, L100.0100, L501.2300 ####[facility] [address] [place], [address] GAP 11 Normal 5-15 [facility] Comment on above: Performed By: #### L 501.5200, L500.4050, L100.0100, L501.2300 ####[facility] [address] [place], [address] GFR/1.73 sq M.predicted among non-blacks MDRD (S/P/Bld) [Vol rate/Area] 115 mL/min/{1.73_m2} Normal >60 [facility] Comment on above: Result Comment: mL/m in/1.73m2 CKD-EPI Creatinine Equation (2020) Performed By: #### L 501.5200, L500.4050, L100.0100, L501.2300 ####[facility] [address] [place], [address] Globulin (S) [Mass/Vol] 2.7 g/dL Normal 2.2-4.2 [facility] Comment on above: Performed By: #### L 501.5200, L500.4050, L100.0100, L501.2300 ####[facility] [address] [place], [address] Glucose [Mass/Vol] 197 mg/dL High 70-99 [facility] Comment on above: Performed By: #### L 501.5200, L500.4050, L100.0100, L501.2300 ####[facility] [address] [place], [address] Potassium [Moles/Vol] 4.2 mmol/L Normal 3.3-5.1 [facility] Comment on above: Performed By: #### L 501.5200, L500.4050, L100.0100, L501.2300 ####[facility] [address] [place], [address] Sodium [Moles/Vol] 134 mmol/L Normal 133-145 [facility] Comment on above: Performed By: #### L 501.5200, L500.4050, L100.0100, L501.2300 ####[facility] [address] [place], [address] T PROT 5.8 g/dL Low 5.9-8.4 [facility] Comment on above: Performed By: #### L 501.5200, L500.4050, L100.0100, L501.2300 ####[facility] [address] [place], [address] Urea nitrogen [Mass/Vol] 7 mg/dL Normal 4-19 [facility] Comment on above: Performed By: #### L 501.5200, L500.4050, L100.0100, L501.2300 ####[facility] [address] [place], [address] Magnesiumon 05-02-2025 Magnesium [Mass/Vol] 1.2 mg/dL Low 1.5-2.2 [facility] Comment on above: Performed By: #### L 501.5200, L500.4050, L100.0100, L501.2300 ####[facility] [address] [place], [address] Magnesium measurement (mass/ volume)Ordered By: Canelo Myers on 05-02-2025 Magnesium (Unsp spec) [Mass/Vol] 1.2 mg/dL Low 1.5-2.2 [facility] Phosphoruson 05-02-2025 Phosphate [Mass/Vol] 5.0 mg/dL High 2.7-4.5 [facility] Comment on above: Performed By: #### L 501.5200, L500.4050, L100.0100, L501.2300 ####[facility] [address] [place], [address] Bedside Glucoseon 05-01-2025 FINGERSTICK GLU 234 mg/dL High 74-106 [facility] Comment on above: Result Comment: CHAUNCEY GEMENT OF PATIENT CARE PER NURSING PROTOCOL Performed By: #### L 501.080 ####[facility] [address] [place], [address] FINGERSTICK GLU 316 mg/dL High 74-106 [facility] Comment on above: Result Comment: CHAUNCEY GEMENT OF PATIENT CARE PER NURSING PROTOCOL Performed By: #### L 501.080 ####[facility] [address] [place], [address] FINGERSTICK GLU 168 mg/dL High 74-106 [facility] Comment on above: Result Comment: CHAUNCEY RIZO OF PATIENT CARE PER NURSING PROTOCOL Performed By: #### L 501.080 ####[facility] [address] [place], [address] Bilirubin directOrdered By: Canelo Myers on 05-01-2025 Bilirubin.direct [Mass/Vol] 0.32 mg/dL High 0.00-0.30 [facility] Liver Profileon 05-01-2025 Albumin [Mass/Vol] 3.0 g/dL Low 3.5-5.0 [facility] Comment on above: Performed By: #### L 500.3400 ####[facility] [address] [place], [address] ALK PHOS 166 U/L High 35-104 [facility] Comment on above: Performed By: #### L 500.3400 ####[facility] [address] [place], [address] ALT [Catalytic activity/Vol] 39 U/L High <=34 [facility] Comment on above: Performed By: #### L 500.3400 ####[facility] [address] [place], [address] AST [Catalytic activity/Vol] 73 U/L High <=31 [facility] Comment on above: Performed By: #### L 500.3400 ####[facility] [address] [place], [address] Bilirubin [Mass/Vol] 0.59 mg/dL Normal 0.00-1.30 [facility] Comment on above: Performed By: #### L 500.3400 ####[facility] [address] [place], [address] Bilirubin.direct [Mass/Vol] 0.32 mg/dL High 0.00-0.30 [facility] Comment on above: Performed By: #### L 500.3400 ####[facility] [address] [place], [address] Globulin (S) [Mass/Vol] 2.7 g/dL Normal 2.2-4.2 [facility] Comment on above: Performed By: #### L 500.3400 ####[facility] [address] [place], [address] T PROT 5.7 g/dL Low 5.9-8.4 [facility] Comment on above: Performed By: #### L 500.3400 ####[facility] [address] [place], [address] Phosphoruson 05-01-2025 Phosphate [Mass/Vol] 5.1 mg/dL High 2.7-4.5 [facility] Comment on above: Performed By: #### L 501.2300 ####[facility] [address] [place], [address] Basic Metabolic Profile (BMP )on 04-30-2025 BUN/CRE UNABLE TO CALCULATE Low 10-20 [facility] Comment on above: Performed By: #### L 500.2500, L500.3400, L100.0100 ####[facility] [address] [place], [address] Calcium [Mass/Vol] 8.5 mg/dL Normal 7.6-11.0 [facility] Comment on above: Performed By: #### L 500.2500, L500.3400, L100.0100 ####[facility] [address] [place], [address] Chloride [Moles/Vol] 98 mmol/L Normal 98-108 [facility] Comment on above: Performed By: #### L 500.2500, L500.3400, L100.0100 ####[facility] [address] [place], [address] CO2 [Moles/Vol] 28.1 mmol/L Normal 21.0-32.0 [facility] Comment on above: Performed By: #### L 500.2500, L500.3400, L100.0100 ####[facility] [address] [place], [address] Creatinine [Mass/Vol] 0.41 mg/dL Low 0.70-1.20 [facility] Comment on above: Performed By: #### L 500.2500, L500.3400, L100.0100 ####[facility] [address] [place], [address] ECRCL 144.90 ml/min Normal 50-250 [facility] Comment on above: Performed By: #### L 500.2500, L500.3400, L100.0100 ####[facility] [address] [place], [address] GAP 13 Normal 5-15 [facility] Comment on above: Performed By: #### L 500.2500, L500.3400, L100.0100 ####[facility] [address] [place], [address] GFR/1.73 sq M.predicted among non-blacks MDRD (S/P/Bld) [Vol rate/Area] 121 mL/min/{1.73_m2} Normal >60 [facility] Comment on above: Result Comment: mL/m in/1.73m2 CKD-EPI Creatinine Equation (2020) Performed By: #### L 500.2500, L500.3400, L100.0100 ####[facility] [address] [place], [address] Glucose [Mass/Vol] 124 mg/dL High 70-99 [facility] Comment on above: Performed By: #### L 500.2500, L500.3400, L100.0100 ####[facility] [address] [place], [address] Potassium [Moles/Vol] 2.7 mmol/L Invalid Interpretation Code 3.3-5.1 [facility] Comment on above: Result Comment: Crit ical Result(s) Called at: by:??Results read back bysame. Performed By: #### L 500.2500, L500.3400, L100.0100 ####[facility] [address] [place], [address] Sodium [Moles/Vol] 139 mmol/L Normal 133-145 [facility] Comment on above: Performed By: #### L 500.2500, L500.3400, L100.0100 ####[facility] [address] [place], [address] Urea nitrogen [Mass/Vol] mg/dL Low 4-19 [facility] Comment on above: Performed By: #### L 500.2500, L500.3400, L100.0100 ####[facility] [address] [place], [address] Bedside Glucoseon 04-30-2025 FINGERSTICK GLU 147 mg/dL High 74-106 [facility] Comment on above: Result Comment: CHAUNCEY GEMENT OF PATIENT CARE PER NURSING PROTOCOL Performed By: #### L 501.080 ####[facility] [address] [place], [address] FINGERSTICK GLU 230 mg/dL High 74-106 [facility] Comment on above: Result Comment: CHAUNCEY GEMENT OF PATIENT CARE PER NURSING PROTOCOL Performed By: #### L 501.080 ####[facility] [address] [place], [address] FINGERSTICK GLU 149 mg/dL High 74-106 [facility] Comment on above: Result Comment: CHAUNCEY GEMENT OF PATIENT CARE PER NURSING PROTOCOL Performed By: #### L 501.080 ####[facility] [address] [place], [address] CBC W/Diff, Automatedon 06-0 2-5 Absolute Lymph 1.39 X10 3/uL Normal 0.83-4.51 [facility] Comment on above: Performed By: #### L 500.2500, L500.3400, L100.0100 ####[facility] [address] [place], [address] Absolute Neut 3.6 X10 3/uL Normal 2.0-7.7 [facility] Comment on above: Performed By: #### L 500.2500, L500.3400, L100.0100 ####[facility] [address] [place], [address] Basophils/100 WBC (Bld) 0.5 % Normal 0-1 [facility] Comment on above: Performed By: #### L 500.2500, L500.3400, L100.0100 ####[facility] [address] [place], [address] Eosinophils/100 WBC (Bld) 2.0 % Normal 0-5 [facility] Comment on above: Performed By: #### L 500.2500, L500.3400, L100.0100 ####[facility] [address] [place], [address] Erythrocyte distribution width (RBC) [Ratio] 12.6 % Normal 11.6-14.6 [facility] Comment on above: Performed By: #### L 500.2500, L500.3400, L100.0100 ####[facility] [address] [place], [address] Hematocrit (Bld) [Volume fraction] 29.7 % Low 37-47 [facility] Comment on above: Performed By: #### L 500.2500, L500.3400, L100.0100 ####[facility] [address] [place], [address] Hemoglobin (Bld) [Mass/Vol] 10.3 g/dL Low 12.0-15.0 [facility] Comment on above: Performed By: #### L 500.2500, L500.3400, L100.0100 ####[facility] [address] [place], [address] IG% 0.500 Normal 0.0-0.9 [facility] Comment on above: Result Comment: IG% - Immature Granulocytes (promyelocytes, myelocytes andmetamyelocytes) > 1% indicates that a LEFT SHIFT is Present. Performed By: #### L 500.2500, L500.3400, L100.0100 ####[facility] [address] [place], [address] Lymphocytes/100 WBC (Bld) 23.4 % Normal 19-41 [facility] Comment on above: Performed By: #### L 500.2500, L500.3400, L100.0100 ####[facility] [address] [place], [address] MCH (RBC) [Entitic mass] 36.7 pg High 27.0-32.0 [facility] Comment on above: Performed By: #### L 500.2500, L500.3400, L100.0100 ####[facility] [address] [place], [address] MCHC (RBC) [Mass/Vol] 34.7 g/dL Normal 32-36 [facility] Comment on above: Performed By: #### L 500.2500, L500.3400, L100.0100 ####[facility] [address] [place], [address] MCV (RBC) [Entitic vol] 105.7 fL High 81-99 [facility] Comment on above: Performed By: #### L 500.2500, L500.3400, L100.0100 ####[facility] [address] [place], [address] Monocytes/100 WBC (Bld) 13.8 % High 0-10 [facility] Comment on above: Performed By: #### L 500.2500, L500.3400, L100.0100 ####[facility] [address] [place], [address] Neutrophils/100 WBC (Bld) 59.8 % Normal 47-70 [facility] Comment on above: Performed By: #### L 500.2500, L500.3400, L100.0100 ####[facility] [address] [place], [address] Nucleated RBC (Bld) [#/Vol] 0 10*3/uL Normal 0-5 [facility] Comment on above: Performed By: #### L 500.2500, L500.3400, L100.0100 ####[facility] [address] [place], [address] Platelet mean volume (Bld) [Entitic vol] 10.4 fL Normal 6.2-12.0 [facility] Comment on above: Performed By: #### L 500.2500, L500.3400, L100.0100 ####[facility] [address] [place], [address] Platelets (Bld) [#/Vol] 145 10*3/uL Low 150-450 [facility] Comment on above: Performed By: #### L 500.2500, L500.3400, L100.0100 ####[facility] [address] [place], [address] RBC (Bld) [#/Vol] 2.81 10*6/uL Low 4.2-5.4 [facility] Comment on above: Performed By: #### L 500.2500, L500.3400, L100.0100 ####[facility] [address] [place], [address] RDW SD 49.7 fl High 35.1-43.9 [facility] Comment on above: Performed By: #### L 500.2500, L500.3400, L100.0100 ####[facility] [address] [place], [address] WBC (Bld) [#/Vol] 6.0 10*3/uL Normal 4.4-11.0 [facility] Comment on above: Performed By: #### L 500.2500, L500.3400, L100.0100 ####[facility] [address] [place], [address] Liver Profileon 04-30-2025 Albumin [Mass/Vol] 3.2 g/dL Low 3.5-5.0 [facility] Comment on above: Performed By: #### L 500.2500, L500.3400, L100.0100 ####[facility] [address] [place], [address] ALK PHOS 98 U/L Normal 35-104 [facility] Comment on above: Performed By: #### L 500.2500, L500.3400, L100.0100 ####[facility] [address] [place], [address] ALT [Catalytic activity/Vol] 32 U/L Normal <=34 [facility] Comment on above: Performed By: #### L 500.2500, L500.3400, L100.0100 ####[facility] [address] [place], [address] AST [Catalytic activity/Vol] 39 U/L High <=31 [facility] Comment on above: Performed By: #### L 500.2500, L500.3400, L100.0100 ####[facility] [address] [place], [address] Bilirubin [Mass/Vol] 0.67 mg/dL Normal 0.00-1.30 [facility] Comment on above: Performed By: #### L 500.2500, L500.3400, L100.0100 ####[facility] [address] [place], [address] Bilirubin.direct [Mass/Vol] 0.41 mg/dL High 0.00-0.30 [facility] Comment on above: Performed By: #### L 500.2500, L500.3400, L100.0100 ####[facility] [address] [place], [address] Globulin (S) [Mass/Vol] 2.6 g/dL Normal 2.2-4.2 [facility] Comment on above: Performed By: #### L 500.2500, L500.3400, L100.0100 ####[facility] [address] [place], [address] T PROT 5.9 g/dL Normal 5.9-8.4 [facility] Comment on above: Performed By: #### L 500.2500, L500.3400, L100.0100 ####[facility] [address] [place], [address] Magnesiumon 04-30-2025 Magnesium [Mass/Vol] 1.5 mg/dL Normal 1.5-2.2 [facility] Comment on above: Performed By: #### L 501.5200 ####[facility] [address] [place], [address] Basic Metabolic Profile (BMP )on 04-29-2025 BUN/CRE UNABLE TO CALCULATE Low 10-20 [facility] Comment on above: Performed By: #### L 500.2500, L500.3400, L501.5200, L100.0100 ####[facility] [address] [place], [address] Calcium [Mass/Vol] 8.2 mg/dL Normal 7.6-11.0 [facility] Comment on above: Performed By: #### L 500.2500, L500.3400, L501.5200, L100.0100 ####[facility] [address] [place], [address] Chloride [Moles/Vol] 103 mmol/L Normal 98-108 [facility] Comment on above: Performed By: #### L 500.2500, L500.3400, L501.5200, L100.0100 ####[facility] [address] [place], [address] CO2 [Moles/Vol] 26.0 mmol/L Normal 21.0-32.0 [facility] Comment on above: Performed By: #### L 500.2500, L500.3400, L501.5200, L100.0100 ####[facility] [address] [place], [address] Creatinine [Mass/Vol] 0.40 mg/dL Low 0.70-1.20 [facility] Comment on above: Performed By: #### L 500.2500, L500.3400, L501.5200, L100.0100 ####[facility] [address] [place], [address] ECRCL 148.53 ml/min Normal 50-250 [facility] Comment on above: Performed By: #### L 500.2500, L500.3400, L501.5200, L100.0100 ####[facility] [address] [place], [address] GAP 11 Normal 5-15 [facility] Comment on above: Performed By: #### L 500.2500, L500.3400, L501.5200, L100.0100 ####[facility] [address] [place], [address] GFR/1.73 sq M.predicted among non-blacks MDRD (S/P/Bld) [Vol rate/Area] 122 mL/min/{1.73_m2} Normal >60 [facility] Comment on above: Result Comment: mL/m in/1.73m2 CKD-EPI Creatinine Equation (2020) Performed By: #### L 500.2500, L500.3400, L501.5200, L100.0100 ####[facility] [address] [place], [address] Glucose [Mass/Vol] 126 mg/dL High 70-99 [facility] Comment on above: Performed By: #### L 500.2500, L500.3400, L501.5200, L100.0100 ####[facility] [address] [place], [address] Potassium [Moles/Vol] 2.8 mmol/L Low 3.3-5.1 [facility] Comment on above: Performed By: #### L 500.2500, L500.3400, L501.5200, L100.0100 ####[facility] [address] [place], [address] Sodium [Moles/Vol] 140 mmol/L Normal 133-145 [facility] Comment on above: Performed By: #### L 500.2500, L500.3400, L501.5200, L100.0100 ####[facility] [address] [place], [address] Urea nitrogen [Mass/Vol] mg/dL Low 4-19 [facility] Comment on above: Performed By: #### L 500.2500, L500.3400, L501.5200, L100.0100 ####[facility] [address] [place], [address] Bedside Glucoseon 04-29-2025 FINGERSTICK GLU 187 mg/dL High 74-106 [facility] Comment on above: Result Comment: CHAUNCEY GEMENT OF PATIENT CARE PER NURSING PROTOCOL Performed By: #### L 501.080 ####[facility] [address] [place], [address] FINGERSTICK GLU 121 mg/dL High -106 [facility] Comment on above: Result Comment: CHAUNCEY GEMENT OF PATIENT CARE PER NURSING PROTOCOL Performed By: #### L 501.080 ####[facility] [address] [place], [address] FINGERSTICK GLU 218 mg/dL High 74-106 [facility] Comment on above: Result Comment: CHAUNCEY GEMENT OF PATIENT CARE PER NURSING PROTOCOL Performed By: #### L 501.080 ####[facility] [address] [place], [address] FINGERSTICK GLU 132 mg/dL High -106 [facility] Comment on above: Result Comment: CHAUNCEY GEMENT OF PATIENT CARE PER NURSING PROTOCOL Performed By: #### L 501.080 ####[facility] [address] [place], [address] CBC W/Diff, Automatedon 06-0 Absolute Lymph 1.02 X10 3/uL Normal 0.83-4.51 [facility] Comment on above: Performed By: #### L 500.2500, L500.3400, L501.5200, L100.0100 ####[facility] [address] [place], [address] Absolute Neut 5.3 X10 3/uL Normal 2.0-7.7 [facility] Comment on above: Performed By: #### L 500.2500, L500.3400, L501.5200, L100.0100 ####[facility] [address] [place], [address] Basophils/100 WBC (Bld) 0.4 % Normal 0-1 [facility] Comment on above: Performed By: #### L 500.2500, L500.3400, L501.5200, L100.0100 ####[facility] [address] [place], [address] Eosinophils/100 WBC (Bld) 1.1 % Normal 0-5 [facility] Comment on above: Performed By: #### L 500.2500, L500.3400, L501.5200, L100.0100 ####[facility] [address] [place], [address] Erythrocyte distribution width (RBC) [Ratio] 12.2 % Normal 11.6-14.6 [facility] Comment on above: Performed By: #### L 500.2500, L500.3400, L501.5200, L100.0100 ####[facility] [address] [place], [address] Hematocrit (Bld) [Volume fraction] 28.7 % Low 37-47 [facility] Comment on above: Performed By: #### L 500.2500, L500.3400, L501.5200, L100.0100 ####[facility] [address] [place], [address] Hemoglobin (Bld) [Mass/Vol] 9.9 g/dL Low 12.0-15.0 [facility] Comment on above: Performed By: #### L 500.2500, L500.3400, L501.5200, L100.0100 ####[facility] [address] [place], [address] IG% 0.600 Normal 0.0-0.9 [facility] Comment on above: Result Comment: IG% - Immature Granulocytes (promyelocytes, myelocytes andmetamyelocytes) > 1% indicates that a LEFT SHIFT is Present. Performed By: #### L 500.2500, L500.3400, L501.5200, L100.0100 ####[facility] [address] [place], [address] Lymphocytes/100 WBC (Bld) 14.1 % Low 19-41 [facility] Comment on above: Performed By: #### L 500.2500, L500.3400, L501.5200, L100.0100 ####[facility] [address] [place], [address] MCH (RBC) [Entitic mass] 36.5 pg High 27.0-32.0 [facility] Comment on above: Performed By: #### L 500.2500, L500.3400, L501.5200, L100.0100 ####[facility] [address] [place], [address] MCHC (RBC) [Mass/Vol] 34.5 g/dL Normal 32-36 [facility] Comment on above: Performed By: #### L 500.2500, L500.3400, L501.5200, L100.0100 ####[facility] [address] [place], [address] MCV (RBC) [Entitic vol] 105.9 fL High 81-99 [facility] Comment on above: Performed By: #### L 500.2500, L500.3400, L501.5200, L100.0100 ####[facility] [address] [place], [address] Monocytes/100 WBC (Bld) 10.9 % High 0-10 [facility] Comment on above: Performed By: #### L 500.2500, L500.3400, L501.5200, L100.0100 ####[facility] [address] [place], [address] Neutrophils/100 WBC (Bld) 72.9 % High 47-70 [facility] Comment on above: Performed By: #### L 500.2500, L500.3400, L501.5200, L100.0100 ####[facility] [address] [place], [address] Nucleated RBC (Bld) [#/Vol] 0 10*3/uL Normal 0-5 [facility] Comment on above: Performed By: #### L 500.2500, L500.3400, L501.5200, L100.0100 ####[facility] [address] [place], [address] Platelet mean volume (Bld) [Entitic vol] 10.5 fL Normal 6.2-12.0 [facility] Comment on above: Performed By: #### L 500.2500, L500.3400, L501.5200, L100.0100 ####[facility] [address] [place], [address] Platelets (Bld) [#/Vol] 110 10*3/uL Low 150-450 [facility] Comment on above: Performed By: #### L 500.2500, L500.3400, L501.5200, L100.0100 ####[facility] [address] [place], [address] RBC (Bld) [#/Vol] 2.71 10*6/uL Low 4.2-5.4 [facility] Comment on above: Performed By: #### L 500.2500, L500.3400, L501.5200, L100.0100 ####[facility] [address] [place], [address] RDW SD 47.6 fl High 35.1-43.9 [facility] Comment on above: Performed By: #### L 500.2500, L500.3400, L501.5200, L100.0100 ####[facility] [address] [place], [address] WBC (Bld) [#/Vol] 7.2 10*3/uL Normal 4.4-11.0 [facility] Comment on above: Performed By: #### L 500.2500, L500.3400, L501.5200, L100.0100 ####[facility] [address] [place], [address] Liver Profileon 04-29-2025 Albumin [Mass/Vol] 3.2 g/dL Low 3.5-5.0 [facility] Comment on above: Performed By: #### L 500.2500, L500.3400, L501.5200, L100.0100 ####[facility] [address] [place], [address] ALK PHOS 108 U/L High 35-104 [facility] Comment on above: Performed By: #### L 500.2500, L500.3400, L501.5200, L100.0100 ####[facility] [address] [place], [address] ALT [Catalytic activity/Vol] 37 U/L High <=34 [facility] Comment on above: Performed By: #### L 500.2500, L500.3400, L501.5200, L100.0100 ####[facility] [address] [place], [address] AST [Catalytic activity/Vol] 56 U/L High <=31 [facility] Comment on above: Performed By: #### L 500.2500, L500.3400, L501.5200, L100.0100 ####[facility] [address] [place], [address] Bilirubin [Mass/Vol] 0.71 mg/dL Normal 0.00-1.30 [facility] Comment on above: Performed By: #### L 500.2500, L500.3400, L501.5200, L100.0100 ####[facility] [address] [place], [address] Bilirubin.direct [Mass/Vol] 0.43 mg/dL High 0.00-0.30 [facility] Comment on above: Performed By: #### L 500.2500, L500.3400, L501.5200, L100.0100 ####[facility] [address] [place], [address] Globulin (S) [Mass/Vol] 2.4 g/dL Normal 2.2-4.2 [facility] Comment on above: Performed By: #### L 500.2500, L500.3400, L501.5200, L100.0100 ####[facility] [address] [place], [address] T PROT 5.6 g/dL Low 5.9-8.4 [facility] Comment on above: Performed By: #### L 500.2500, L500.3400, L501.5200, L100.0100 ####[facility] [address] [place], [address] Magnesiumon 04-29-2025 Magnesium [Mass/Vol] 1.5 mg/dL Normal 1.5-2.2 [facility] Comment on above: Performed By: #### L 500.2500, L500.3400, L501.5200, L100.0100 ####[facility] [address] [place], [address] Phosphoruson 04-29-2025 Phosphate [Mass/Vol] 2.0 mg/dL Low 2.7-4.5 [facility] Comment on above: Performed By: #### L 501.2300 ####[facility] [address] [place], [address] Basic Metabolic Profile (BMP )on 04-28-2025 BUN/CRE 6.9 RATIO Low 10-20 [facility] Comment on above: Performed By: #### L 500.2500, L500.3400, L501.5200, L501.2450 ####[facility] [address] [place], [address] Calcium [Mass/Vol] 8.3 mg/dL Normal 7.6-11.0 [facility] Comment on above: Performed By: #### L 500.2500, L500.3400, L501.5200, L501.2450 ####[facility] [address] [place], [address] Chloride [Moles/Vol] 100 mmol/L Normal 98-108 [facility] Comment on above: Performed By: #### L 500.2500, L500.3400, L501.5200, L501.2450 ####[facility] [address] [place], [address] CO2 [Moles/Vol] 24.9 mmol/L Normal 21.0-32.0 [facility] Comment on above: Performed By: #### L 500.2500, L500.3400, L501.5200, L501.2450 ####[facility] [address] [place], [address] Creatinine [Mass/Vol] 0.50 mg/dL Low 0.70-1.20 [facility] Comment on above: Performed By: #### L 500.2500, L500.3400, L501.5200, L501.2450 ####[facility] [address] [place], [address] ECRCL 118.82 ml/min Normal 50-250 [facility] Comment on above: Performed By: #### L 500.2500, L500.3400, L501.5200, L501.2450 ####[facility] [address] [place], [address] GAP 12 Normal 5-15 [facility] Comment on above: Performed By: #### L 500.2500, L500.3400, L501.5200, L501.2450 ####[facility] [address] [place], [address] GFR/1.73 sq M.predicted among non-blacks MDRD (S/P/Bld) [Vol rate/Area] 115 mL/min/{1.73_m2} Normal >60 [facility] Comment on above: Result Comment: mL/m in/1.73m2 CKD-EPI Creatinine Equation (2020) Performed By: #### L 500.2500, L500.3400, L501.5200, L501.2450 ####[facility] [address] [place], [address] Glucose [Mass/Vol] 103 mg/dL High 70-99 [facility] Comment on above: Performed By: #### L 500.2500, L500.3400, L501.5200, L501.2450 ####[facility] [address] [place], [address] Potassium [Moles/Vol] 3.2 mmol/L Low 3.3-5.1 [facility] Comment on above: Performed By: #### L 500.2500, L500.3400, L501.5200, L501.2450 ####[facility] [address] [place], [address] Sodium [Moles/Vol] 137 mmol/L Normal 133-145 [facility] Comment on above: Performed By: #### L 500.2500, L500.3400, L501.5200, L501.2450 ####[facility] [address] [place], [address] Urea nitrogen [Mass/Vol] 3 mg/dL Low 4-19 [facility] Comment on above: Performed By: #### L 500.2500, L500.3400, L501.5200, L501.2450 ####[facility] [address] [place], [address] Bedside Glucoseon 04-28-2025 FINGERSTICK GLU 140 mg/dL High 74-106 [facility] Comment on above: Result Comment: CHAUNCEY GEMENT OF PATIENT CARE PER NURSING PROTOCOL Performed By: #### L 501.080 ####[facility] [address] [place], [address] FINGERSTICK GLU 181 mg/dL High 74-106 [facility] Comment on above: Result Comment: CHAUNCEY GEMENT OF PATIENT CARE PER NURSING PROTOCOL Performed By: #### L 501.080 ####[facility] [address] [place], [address] FINGERSTICK GLU 104 mg/dL Normal 74-106 [facility] Comment on above: Result Comment: CHAUNCEY GEMENT OF PATIENT CARE PER NURSING PROTOCOL Performed By: #### L 501.080 ####[facility] [address] [place], [address] CBC W/Diff, Automatedon 05- Absolute Lymph 0.95 X10 3/uL Normal 0.83-4.51 [facility] Comment on above: Performed By: #### L 100.0100, L501.2300 ####[facility] [address] [place], [address] Absolute Neut 5.9 X10 3/uL Normal 2.0-7.7 [facility] Comment on above: Performed By: #### L 100.0100, L501.2300 ####[facility] [address] [place], [address] Basophils/100 WBC (Bld) 0.3 % Normal 0-1 [facility] Comment on above: Performed By: #### L 100.0100, L501.2300 ####[facility] [address] [place], [address] Eosinophils/100 WBC (Bld) 0.8 % Normal 0-5 [facility] Comment on above: Performed By: #### L 100.0100, L501.2300 ####[facility] [address] [place], [address] Erythrocyte distribution width (RBC) [Ratio] 12.2 % Normal 11.6-14.6 [facility] Comment on above: Performed By: #### L 100.0100, L501.2300 ####[facility] [address] [place], [address] Hematocrit (Bld) [Volume fraction] 34.3 % Low 37-47 [facility] Comment on above: Performed By: #### L 100.0100, L501.2300 ####[facility] [address] [place], [address] Hemoglobin (Bld) [Mass/Vol] 11.6 g/dL Low 12.0-15.0 [facility] Comment on above: Performed By: #### L 100.0100, L501.2300 ####[facility] [address] [place], [address] IG% 0.400 Normal 0.0-0.9 [facility] Comment on above: Result Comment: IG% - Immature Granulocytes (promyelocytes, myelocytes andmetamyelocytes) > 1% indicates that a LEFT SHIFT is Present. Performed By: #### L 100.0100, L501.2300 ####[facility] [address] [place], [address] Lymphocytes/100 WBC (Bld) 12.5 % Low 19-41 [facility] Comment on above: Performed By: #### L 100.0100, L501.2300 ####[facility] [address] [place], [address] MCH (RBC) [Entitic mass] 36.4 pg High 27.0-32.0 [facility] Comment on above: Performed By: #### L 100.0100, L501.2300 ####[facility] [address] [place], [address] MCHC (RBC) [Mass/Vol] 33.8 g/dL Normal 32-36 [facility] Comment on above: Performed By: #### L 100.0100, L501.2300 ####[facility] [address] [place], [address] MCV (RBC) [Entitic vol] 107.5 fL High 81-99 [facility] Comment on above: Performed By: #### L 100.0100, L501.2300 ####[facility] [address] [place], [address] Monocytes/100 WBC (Bld) 8.0 % Normal 0-10 [facility] Comment on above: Performed By: #### L 100.0100, L501.2300 ####[facility] [address] [place], [address] Neutrophils/100 WBC (Bld) 78.0 % High 47-70 [facility] Comment on above: Performed By: #### L 100.0100, L501.2300 ####[facility] [address] [place], [address] Nucleated RBC (Bld) [#/Vol] 0 10*3/uL Normal 0-5 [facility] Comment on above: Performed By: #### L 100.0100, L501.2300 ####[facility] [address] [place], [address] Platelet mean volume (Bld) [Entitic vol] 10.3 fL Normal 6.2-12.0 [facility] Comment on above: Performed By: #### L 100.0100, L501.2300 ####[facility] [address] [place], [address] Platelets (Bld) [#/Vol] 119 10*3/uL Low 150-450 [facility] Comment on above: Performed By: #### L 100.0100, L501.2300 ####[facility] [address] [place], [address] RBC (Bld) [#/Vol] 3.19 10*6/uL Low 4.2-5.4 [facility] Comment on above: Performed By: #### L 100.0100, L501.2300 ####[facility] [address] [place], [address] RDW SD 48.2 fl High 35.1-43.9 [facility] Comment on above: Performed By: #### L 100.0100, L501.2300 ####[facility] [address] [place], [address] WBC (Bld) [#/Vol] 7.6 10*3/uL Normal 4.4-11.0 [facility] Comment on above: Performed By: #### L 100.0100, L501.2300 ####[facility] [address] [place], [address] Lipaseon 04-28-2025 Lipase [Catalytic activity/Vol] 533 U/L High 13-75 [facility] Comment on above: Result Comment: Lucie schultz note:LIPASE revised reference range effective 23.New Lipase methodology. Expected to produce lower valuesthan the previous assay method.NEW Reference Range: 13 - 75 U/L Performed By: #### L 500.2500, L500.3400, L501.5200, L501.2450 ####[facility] [address] [place], [address] Lipase measurementOrdered By : Canelo Myers on 04-28-2025 Lipase [Catalytic activity/Vol] 533 U/L High 13-75 [facility] Comment on above: Please note:LIPASE r evised reference range effective 23. New Lipase methodology. Expected to produce lower values than the previous assay method. NEW Reference Range: 13 - 75 U/L Liver Profileon 04-28-2025 Albumin [Mass/Vol] 3.7 g/dL Normal 3.5-5.0 [facility] Comment on above: Performed By: #### L 500.2500, L500.3400, L501.5200, L501.2450 ####[facility] [address] [place], [address] ALK PHOS 158 U/L High 35-104 [facility] Comment on above: Performed By: #### L 500.2500, L500.3400, L501.5200, L501.2450 ####[facility] [address] [place], [address] ALT [Catalytic activity/Vol] 72 U/L High <=34 [facility] Comment on above: Performed By: #### L 500.2500, L500.3400, L501.5200, L501.2450 ####[facility] [address] [place], [address] AST [Catalytic activity/Vol] 265 U/L High <=31 [facility] Comment on above: Performed By: #### L 500.2500, L500.3400, L501.5200, L501.2450 ####[facility] [address] [place], [address] Bilirubin [Mass/Vol] 1.26 mg/dL Normal 0.00-1.30 [facility] Comment on above: Performed By: #### L 500.2500, L500.3400, L501.5200, L501.2450 ####[facility] [address] [place], [address] Bilirubin.direct [Mass/Vol] 0.79 mg/dL High 0.00-0.30 [facility] Comment on above: Performed By: #### L 500.2500, L500.3400, L501.5200, L501.2450 ####[facility] [address] [place], [address] Globulin (S) [Mass/Vol] 2.6 g/dL Normal 2.2-4.2 [facility] Comment on above: Performed By: #### L 500.2500, L500.3400, L501.5200, L501.2450 ####[facility] [address] [place], [address] T PROT 6.3 g/dL Normal 5.9-8.4 [facility] Comment on above: Performed By: #### L 500.2500, L500.3400, L501.5200, L501.2450 ####[facility] [address] [place], [address] Magnesiumon 04-28-2025 Magnesium [Mass/Vol] 1.5 mg/dL Normal 1.5-2.2 [facility] Comment on above: Performed By: #### L 500.2500, L500.3400, L501.5200, L501.2450 ####[facility] [address] [place], [address] Phosphoruson 04-28-2025 Phosphate [Mass/Vol] 1.5 mg/dL Low 2.7-4.5 [facility] Comment on above: Performed By: #### L 100.0100, L501.2300 ####[facility] [address] [place], [address] Basic Metabolic Profile (BMP )on 04-27-2025 BUN/CRE 9.1 RATIO Low 10-20 [facility] Comment on above: Performed By: #### L 300.3900, L500.3400, L501.2300, L501.5200, L501.9520, L500.4050, L500.2500, L100.0100 ####[facility] [address] [place], [address] Calcium [Mass/Vol] 8.0 mg/dL Normal 7.6-11.0 [facility] Comment on above: Performed By: #### L 300.3900, L500.3400, L501.2300, L501.5200, L501.9520, L500.4050, L500.2500, L100.0100 ####[facility] [address] [place], [address] Chloride [Moles/Vol] 96 mmol/L Low 98-108 [facility] Comment on above: Performed By: #### L 300.3900, L500.3400, L501.2300, L501.5200, L501.9520, L500.4050, L500.2500, L100.0100 ####[facility] [address] [place], [address] CO2 [Moles/Vol] 16.0 mmol/L Low 21.0-32.0 [facility] Comment on above: Performed By: #### L 300.3900, L500.3400, L501.2300, L501.5200, L501.9520, L500.4050, L500.2500, L100.0100 ####[facility] [address] [place], [address] Creatinine [Mass/Vol] 0.69 mg/dL Low 0.70-1.20 [facility] Comment on above: Performed By: #### L 300.3900, L500.3400, L501.2300, L501.5200, L501.9520, L500.4050, L500.2500, L100.0100 ####[facility] [address] [place], [address] ECRCL 86.10 ml/min Normal 50-250 [facility] Comment on above: Performed By: #### L 300.3900, L500.3400, L501.2300, L501.5200, L501.9520, L500.4050, L500.2500, L100.0100 ####[facility] [address] [place], [address] GAP 22 High 5-15 [facility] Comment on above: Performed By: #### L 300.3900, L500.3400, L501.2300, L501.5200, L501.9520, L500.4050, L500.2500, L100.0100 ####[facility] [address] [place], [address] GFR/1.73 sq M.predicted among non-blacks MDRD (S/P/Bld) [Vol rate/Area] 107 mL/min/{1.73_m2} Normal >60 [facility] Comment on above: Result Comment: mL/m in/1.73m2 CKD-EPI Creatinine Equation (2020) Performed By: #### L 300.3900, L500.3400, L501.2300, L501.5200, L501.9520, L500.4050, L500.2500, L100.0100 ####[facility] [address] [place], [address] Glucose [Mass/Vol] 132 mg/dL High 70-99 [facility] Comment on above: Performed By: #### L 300.3900, L500.3400, L501.2300, L501.5200, L501.9520, L500.4050, L500.2500, L100.0100 ####[facility] [address] [place], [address] Potassium [Moles/Vol] 3.8 mmol/L Normal 3.3-5.1 [facility] Comment on above: Performed By: #### L 300.3900, L500.3400, L501.2300, L501.5200, L501.9520, L500.4050, L500.2500, L100.0100 ####[facility] [address] [place], [address] Sodium [Moles/Vol] 134 mmol/L Normal 133-145 [facility] Comment on above: Performed By: #### L 300.3900, L500.3400, L501.2300, L501.5200, L501.9520, L500.4050, L500.2500, L100.0100 ####[facility] [address] [place], [address] Urea nitrogen [Mass/Vol] 6 mg/dL Normal 4-19 [facility] Comment on above: Performed By: #### L 300.3900, L500.3400, L501.2300, L501.5200, L501.9520, L500.4050, L500.2500, L100.0100 ####[facility] [address] [place], [address] Bedside Glucoseon 04-27-2025 FINGERSTICK GLU 153 mg/dL High 74-106 [facility] Comment on above: Result Comment: CHAUNCEY GEMENT OF PATIENT CARE PER NURSING PROTOCOL Performed By: #### L 501.080 ####[facility] [address] [place], [address] FINGERSTICK GLU 149 mg/dL High 74-106 [facility] Comment on above: Result Comment: CHAUNCEY GEMENT OF PATIENT CARE PER NURSING PROTOCOL Performed By: #### L 501.080 ####[facility] [address] [place], [address] FINGERSTICK GLU 194 mg/dL High 74-106 [facility] Comment on above: Result Comment: CHAUNCEY GEMENT OF PATIENT CARE PER NURSING PROTOCOL Performed By: #### L 501.080 ####[facility] [address] [place], [address] FINGERSTICK GLU 107 mg/dL High 74-106 [facility] Comment on above: Result Comment: CHAUNCEY GEMENT OF PATIENT CARE PER NURSING PROTOCOL Performed By: #### L 501.080 ####[facility] [address] [place], [address] CBC W/Diff, Automatedon 05-3 0-2024 Absolute Lymph 0.83 X10 3/uL Normal 0.83-4.51 [facility] Comment on above: Performed By: #### L 300.3900, L500.3400, L501.2300, L501.5200, L501.9520, L500.4050, L500.2500, L100.0100 ####[facility] [address] [place], [address] Absolute Neut 9.6 X10 3/uL High 2.0-7.7 [facility] Comment on above: Performed By: #### L 300.3900, L500.3400, L501.2300, L501.5200, L501.9520, L500.4050, L500.2500, L100.0100 ####[facility] [address] [place], [address] Basophils/100 WBC (Bld) 0.3 % Normal 0-1 [facility] Comment on above: Performed By: #### L 300.3900, L500.3400, L501.2300, L501.5200, L501.9520, L500.4050, L500.2500, L100.0100 ####[facility] [address] [place], [address] Eosinophils/100 WBC (Bld) 0.1 % Normal 0-5 [facility] Comment on above: Performed By: #### L 300.3900, L500.3400, L501.2300, L501.5200, L501.9520, L500.4050, L500.2500, L100.0100 ####[facility] [address] [place], [address] Erythrocyte distribution width (RBC) [Ratio] 12.7 % Normal 11.6-14.6 [facility] Comment on above: Performed By: #### L 300.3900, L500.3400, L501.2300, L501.5200, L501.9520, L500.4050, L500.2500, L100.0100 ####[facility] [address] [place], [address]( Hematocrit (Bld) [Volume fraction] 39.2 % Normal 37-47 [facility] Comment on above: Performed By: #### L 300.3900, L500.3400, L501.2300, L501.5200, L501.9520, L500.4050, L500.2500, L100.0100 ####[facility] [address] [place], [address] Hemoglobin (Bld) [Mass/Vol] 13.5 g/dL Normal 12.0-15.0 [facility] Comment on above: Performed By: #### L 300.3900, L500.3400, L501.2300, L501.5200, L501.9520, L500.4050, L500.2500, L100.0100 ####[facility] [address] [place], [address] IG% 0.400 Normal 0.0-0.9 [facility] Comment on above: Result Comment: IG% - Immature Granulocytes (promyelocytes, myelocytes andmetamyelocytes) > 1% indicates that a LEFT SHIFT is Present. Performed By: #### L 300.3900, L500.3400, L501.2300, L501.5200, L501.9520, L500.4050, L500.2500, L100.0100 ####[facility] [address] [place], [address] Lymphocytes/100 WBC (Bld) 7.3 % Low 19-41 [facility] Comment on above: Performed By: #### L 300.3900, L500.3400, L501.2300, L501.5200, L501.9520, L500.4050, L500.2500, L100.0100 ####[facility] [address] [place], [address] MCH (RBC) [Entitic mass] 36.6 pg High 27.0-32.0 [facility] Comment on above: Performed By: #### L 300.3900, L500.3400, L501.2300, L501.5200, L501.9520, L500.4050, L500.2500, L100.0100 ####[facility] [address] [place], [address] MCHC (RBC) [Mass/Vol] 34.4 g/dL Normal 32-36 [facility] Comment on above: Performed By: #### L 300.3900, L500.3400, L501.2300, L501.5200, L501.9520, L500.4050, L500.2500, L100.0100 ####[facility] [address] [place], [address] MCV (RBC) [Entitic vol] 106.2 fL High 81-99 [facility] Comment on above: Performed By: #### L 300.3900, L500.3400, L501.2300, L501.5200, L501.9520, L500.4050, L500.2500, L100.0100 ####[facility] [address] [place], [address] Monocytes/100 WBC (Bld) 7.9 % Normal 0-10 [facility] Comment on above: Performed By: #### L 300.3900, L500.3400, L501.2300, L501.5200, L501.9520, L500.4050, L500.2500, L100.0100 ####[facility] [address] [place], [address] Neutrophils/100 WBC (Bld) 84.0 % High 47-70 [facility] Comment on above: Performed By: #### L 300.3900, L500.3400, L501.2300, L501.5200, L501.9520, L500.4050, L500.2500, L100.0100 ####[facility] [address] [place], [address] Nucleated RBC (Bld) [#/Vol] 0 10*3/uL Normal 0-5 [facility] Comment on above: Performed By: #### L 300.3900, L500.3400, L501.2300, L501.5200, L501.9520, L500.4050, L500.2500, L100.0100 ####[facility] [address] [place], [address] Platelet mean volume (Bld) [Entitic vol] 9.7 fL Normal 6.2-12.0 [facility] Comment on above: Performed By: #### L 300.3900, L500.3400, L501.2300, L501.5200, L501.9520, L500.4050, L500.2500, L100.0100 ####[facility] [address] [place], [address] Platelets (Bld) [#/Vol] 153 10*3/uL Normal 150-450 [facility] Comment on above: Performed By: #### L 300.3900, L500.3400, L501.2300, L501.5200, L501.9520, L500.4050, L500.2500, L100.0100 ####[facility] [address] [place], [place], [phone]) RBC (Bld) [#/Vol] 3.69 10*6/uL Low 4.2-5.4 [facility] Comment on above: Performed By: #### L 300.3900, L500.3400, L501.2300, L501.5200, L501.9520, L500.4050, L500.2500, L100.0100 ####[facility] [address] [place], [place], [id number]) RDW SD 49.7 fl High 35.1-43.9 [facility] Comment on above: Performed By: #### L 300.3900, L500.3400, L501.2300, L501.5200, L501.9520, L500.4050, L500.2500, L100.0100 ####[facility] [address] [place], [place], [phone]) WBC (Bld) [#/Vol] 11.4 10*3/uL High 4.4-11.0 [facility] Comment on above: Performed By: #### L 300.3900, L500.3400, L501.2300, L501.5200, L501.9520, L500.4050, L500.2500, L100.0100 ####[facility] [address] [place], [address] Comprehensive Metabolic Prof moon 04-27-2025 Albumin/Globulin [Mass ratio] 1.4 {ratio} Normal 0.9-2.4 [facility] Comment on above: Performed By: #### L 300.3900, L500.3400, L501.2300, L501.5200, L501.9520, L500.4050, L500.2500, L100.0100 ####[facility] [address] [place], [place], [address] Hemoglobin A1con 04-27-2025 HbA1c (Bld) [Mass fraction] 5.6 % Normal <=5.6 [facility] Comment on above: Result Comment: Norm al < 5.7 % Prediabetic 5.7 - 6.4 % Diabetic >or= 6.5 % Please note range changes. Performed By: #### L 501.3706 ####[facility] [address] [place], [place], [address] Hemoglobin A1c percentageOrd ered By: Julius Moncada on 04-27-2025 HbA1c (Bld) [Mass fraction] 5.6 % <5.7 [facility] Comment on above: Normal < 5.7 % Predi abetic 5.7 - 6.4 % Diabetic >or= 6.5 % Please note range changes. International normalized rat io (INR) calculationOrdered By: Julius Moncada on 04-27-2025 INR Coag (Bld) [Relative time] 1.0 {INR} [facility] Liver Profileon 04-27-2025 Albumin [Mass/Vol] 3.9 g/dL Normal 3.5-5.0 [facility] Comment on above: Performed By: #### L 300.3900, L500.3400, L501.2300, L501.5200, L501.9520, L500.4050, L500.2500, L100.0100 ####[facility] [address] [place], [place], [phone] ALK PHOS 98 U/L Normal 35-104 [facility] Comment on above: Performed By: #### L 300.3900, L500.3400, L501.2300, L501.5200, L501.9520, L500.4050, L500.2500, L100.0100 ####[facility] [address] [place], [place], [id number] ALT [Catalytic activity/Vol] 46 U/L High <=34 [facility] Comment on above: Performed By: #### L 300.3900, L500.3400, L501.2300, L501.5200, L501.9520, L500.4050, L500.2500, L100.0100 ####[facility] [address] [place], [address] AST [Catalytic activity/Vol] 96 U/L High <=31 [facility] Comment on above: Performed By: #### L 300.3900, L500.3400, L501.2300, L501.5200, L501.9520, L500.4050, L500.2500, L100.0100 ####[facility] [address] [place], [address] Bilirubin [Mass/Vol] 0.99 mg/dL Normal 0.00-1.30 [facility] Comment on above: Performed By: #### L 300.3900, L500.3400, L501.2300, L501.5200, L501.9520, L500.4050, L500.2500, L100.0100 ####[facility] [address] [place], [address] Bilirubin.direct [Mass/Vol] 0.54 mg/dL High 0.00-0.30 [facility] Comment on above: Performed By: #### L 300.3900, L500.3400, L501.2300, L501.5200, L501.9520, L500.4050, L500.2500, L100.0100 ####[facility] [address] [place], [address] Globulin (S) [Mass/Vol] 2.7 g/dL Normal 2.2-4.2 [facility] Comment on above: Performed By: #### L 300.3900, L500.3400, L501.2300, L501.5200, L501.9520, L500.4050, L500.2500, L100.0100 ####[facility] [address] [place], [address] T PROT 6.6 g/dL Normal 5.9-8.4 [facility] Comment on above: Performed By: #### L 300.3900, L500.3400, L501.2300, L501.5200, L501.9520, L500.4050, L500.2500, L100.0100 ####[facility] [address] [place], [address] Magnesiumon 04-27-2025 Magnesium [Mass/Vol] 0.9 mg/dL Invalid Interpretation Code 1.5-2.2 [facility] Comment on above: Result Comment: Crit ical Result(s) Called at:04/27/2025-02:13 by: [employer] LabsRead.??Results read back by same. Performed By: #### L 300.3900, L500.3400, L501.2300, L501.5200, L501.9520, L500.4050, L500.2500, L100.0100 ####[facility] [address] [place], [place], [id number] Phosphoruson 04-27-2025 Phosphate [Mass/Vol] 3.3 mg/dL Normal 2.7-4.5 [facility] Comment on above: Performed By: #### L 300.3900, L500.3400, L501.2300, L501.5200, L501.9520, L500.4050, L500.2500, L100.0100 ####[facility] [address] [place], [place], [phone] Prothrombin Time w/INRon INR Coag (PPP) [Relative time] 1.0 {INR} Normal [facility] Comment on above: Performed By: #### L 300.3900, L500.3400, L501.2300, L501.5200, L501.9520, L500.4050, L500.2500, L100.0100 ####[facility] [address] [place], [address] PT Coag (PPP) [Time] 12.9 s Normal 11.7-14.9 [facility] Comment on above: Performed By: #### L 300.3900, L500.3400, L501.2300, L501.5200, L501.9520, L500.4050, L500.2500, L100.0100 ####[facility] [address] [place], [address] Prothrombin timeOrdered By: Julius Moncada on 04-27-2025 PT Coag (PPP) [Time] 12.9 s 11.7-14.9 [facility] TSH DL <= 0.005 mIU/L QnOrde red By: Julius Moncada on 04-27-2025 TSH Qn 4.010 uIU/mL 0.300-4.200 [facility] Comment on above: Previous reported re sult: 3.960 uIU/mLEdited by: BRITTNEY on 04/27/25:0236 AMENDED REPORT 04/27/25235 TSH previously reported as: 3.960 uIU/mL Thyroid Stim Hormone (TSH)on 04-27-2025 TSH 4.010 uIU/mL Normal 0.300-4.200 [facility] Comment on above: Result Comment: AMENDED REPORT 04/27/25235 TSH previously reported as: 3.960 uIU/mL Performed By: #### L 300.3900, L500.3400, L501.2300, L501.5200, L501.9520, L500.4050, L500.2500, L100.0100 ####[facility] [address] [place], [place], [id number] Abdomen/Pelvis W IV Cont ONL Yon 04-26-2025 Abdomen/Pelvis W IV Cont ONLY Normal [facility] Absolute lymphocyte countOrd ered By: Humphrey Garcia on 04-26-2025 Lymphocytes Auto (Unsp spec) [#/Vol] 0.76 10*3/uL Low 0.83-4.51 [facility] Absolute neutrophil countOrd ered By: Humphrey Garcia on 04-26-2025 Neutrophils (Bld) [#/Vol] 8.8 10*3/uL High 2.0-7.7 [facility] Alcohol, Blood (Medical)-Ser umon 04-26-2025 SERUM ETOH < 10.1 Normal <=10.0 [facility] Comment on above: Result Comment: This test is for medical purposes only. The legaldefinition of intoxication varies according to local law. Performed By: #### L 501.9100 ####[facility] [address] [place], [address] Anion gap in Serum or Plasma Ordered By: Humphrey Garcia on 04-26-2025 Anion gap [Moles/Vol] 36 mmol/L High 5-15 [facility] Automated lymphocyte count a s percentage of total leukocytesOrdered By: Humphrey Garcia on 04-26-2025 Lymphocytes/100 WBC Auto (Unsp spec) 7.3 % Low 19-41 [facility] BUN/creatinine ratioOrdered By: Humphrey Garcia on 04-26-2025 Urea nitrogen/Creatinine [Mass ratio] 11.2 mg/mg 10-20 [facility] Basophil percentageOrdered B y: Humphrey Garcia on 04-26-2025 Basophils/100 WBC (Bld) 0.4 % 0-1 [facility] Bilirubin Test strip Ql (U)O rdered By: Humphrey Garcia on 04-26-2025 Bilirubin Ql (U) Negative Negative [facility] Bilirubin, totalOrdered By: Humphrey Garcia on 04-26-2025 Bilirubin [Mass/Vol] 1.42 mg/dL High 0.00-1.30 [facility] CBC W/Diff, Automatedon 03-30 Absolute Lymph 0.76 X10 3/uL Low 0.83-4.51 [facility] Comment on above: Performed By: #### L 501.2450, L500.4050, L100.0100 ####[facility] [address] [place], [address] Absolute Neut 8.8 X10 3/uL High 2.0-7.7 [facility] Comment on above: Performed By: #### L 501.2450, L500.4050, L100.0100 ####[facility] [address] [place], [address] Basophils/100 WBC (Bld) 0.4 % Normal 0-1 [facility] Comment on above: Performed By: #### L 501.2450, L500.4050, L100.0100 ####[facility] [address] [place], [address] Eosinophils/100 WBC (Bld) 0.0 % Normal 0-5 [facility] Comment on above: Performed By: #### L 501.2450, L500.4050, L100.0100 ####[facility] [address] [place], [address] Erythrocyte distribution width (RBC) [Ratio] 12.8 % Normal 11.6-14.6 [facility] Comment on above: Performed By: #### L 501.2450, L500.4050, L100.0100 ####[facility] [address] [place], [address] Hematocrit (Bld) [Volume fraction] 42.8 % Normal 37-47 [facility] Comment on above: Performed By: #### L 501.2450, L500.4050, L100.0100 ####[facility] [address] [place], [address] Hemoglobin (Bld) [Mass/Vol] 14.8 g/dL Normal 12.0-15.0 [facility] Comment on above: Performed By: #### L 501.2450, L500.4050, L100.0100 ####[facility] [address] [place], [address] IG% 0.700 Normal 0.0-0.9 [facility] Comment on above: Result Comment: IG% - Immature Granulocytes (promyelocytes, myelocytes andmetamyelocytes) > 1% indicates that a LEFT SHIFT is Present. Performed By: #### L 501.2450, L500.4050, L100.0100 ####[facility] [address] [place], [address] Lymphocytes/100 WBC (Bld) 7.3 % Low 19-41 [facility] Comment on above: Performed By: #### L 501.2450, L500.4050, L100.0100 ####[facility] [address] [place], [address] MCH (RBC) [Entitic mass] 36.2 pg High 27.0-32.0 [facility] Comment on above: Performed By: #### L 501.2450, L500.4050, L100.0100 ####[facility] [address] [place], [address] MCHC (RBC) [Mass/Vol] 34.6 g/dL Normal 32-36 [facility] Comment on above: Performed By: #### L 501.2450, L500.4050, L100.0100 ####[facility] [address] [place], [address] MCV (RBC) [Entitic vol] 104.6 fL High 81-99 [facility] Comment on above: Performed By: #### L 501.2450, L500.4050, L100.0100 ####[facility] [address] [place], [address] Monocytes/100 WBC (Bld) 7.0 % Normal 0-10 [facility] Comment on above: Performed By: #### L 501.2450, L500.4050, L100.0100 ####[facility] [address] [place], [address] Neutrophils/100 WBC (Bld) 84.6 % High 47-70 [facility] Comment on above: Performed By: #### L 501.2450, L500.4050, L100.0100 ####[facility] [address] [place], [address] Nucleated RBC (Bld) [#/Vol] 0.2 10*3/uL Normal 0-5 [facility] Comment on above: Performed By: #### L 501.2450, L500.4050, L100.0100 ####[facility] [address] [place], [address] Platelet mean volume (Bld) [Entitic vol] 10.0 fL Normal 6.2-12.0 [facility] Comment on above: Performed By: #### L 501.2450, L500.4050, L100.0100 ####[facility] [address] [place], [address] Platelets (Bld) [#/Vol] 175 10*3/uL Normal 150-450 [facility] Comment on above: Performed By: #### L 501.2450, L500.4050, L100.0100 ####[facility] [address] [place], [address] RBC (Bld) [#/Vol] 4.09 10*6/uL Low 4.2-5.4 [facility] Comment on above: Performed By: #### L 501.2450, L500.4050, L100.0100 ####[facility] [address] [place], [address] RDW SD 49.4 fl High 35.1-43.9 [facility] Comment on above: Performed By: #### L 501.2450, L500.4050, L100.0100 ####[facility] [address] [place], [address] WBC (Bld) [#/Vol] 10.4 10*3/uL Normal 4.4-11.0 [facility] Comment on above: Performed By: #### L 501.2450, L500.4050, L100.0100 ####[facility] [address] [place], [address] Carbon dioxide, total [Moles /volume] in Central venous bloodOrdered By: Humphrey Garcia on 04-26-2025 CO2 [Moles/Vol] 16.4 mmol/L Low 21.0-32.0 [facility] Chloride assayOrdered By: Edison Garcia on 04-26-2025 Chloride [Moles/Vol] 87 mmol/L Low 98-108 [facility] Comprehensive Metabolic Prof ilon 04-26-2025 Albumin [Mass/Vol] 4.5 g/dL Normal 3.5-5.0 [facility] Comment on above: Performed By: #### L 501.2450, L500.4050, L100.0100 ####[facility] [address] [place], [address] Albumin/Globulin [Mass ratio] 1.4 {ratio} Normal 0.9-2.4 [facility] Comment on above: Performed By: #### L 501.2450, L500.4050, L100.0100 ####[facility] [address] [place], [address] ALK PHOS 122 U/L High 35-104 [facility] Comment on above: Performed By: #### L 501.2450, L500.4050, L100.0100 ####[facility] [address] [place], [address] ALT [Catalytic activity/Vol] 62 U/L High <=34 [facility] Comment on above: Performed By: #### L 501.2450, L500.4050, L100.0100 ####[facility] [address] [place], [address] AST [Catalytic activity/Vol] 127 U/L High <=31 [facility] Comment on above: Performed By: #### L 501.2450, L500.4050, L100.0100 ####[facility] [address] [place], [address] Bilirubin [Mass/Vol] 1.42 mg/dL High 0.00-1.30 [facility] Comment on above: Performed By: #### L 501.2450, L500.4050, L100.0100 ####[facility] [address] [place], [address] BUN/CRE 11.2 RATIO Normal 10-20 [facility] Comment on above: Performed By: #### L 501.2450, L500.4050, L100.0100 ####[facility] [address] [place], [address] Calcium [Mass/Vol] 8.9 mg/dL Normal 7.6-11.0 [facility] Comment on above: Performed By: #### L 501.2450, L500.4050, L100.0100 ####[facility] [address] [place], [address] Chloride [Moles/Vol] 87 mmol/L Low 98-108 [facility] Comment on above: Performed By: #### L 501.2450, L500.4050, L100.0100 ####[facility] [address] [place], [address] CO2 [Moles/Vol] 16.4 mmol/L Low 21.0-32.0 [facility] Comment on above: Performed By: #### L 501.2450, L500.4050, L100.0100 ####[facility] [address] [place], [address] Creatinine [Mass/Vol] 0.70 mg/dL Normal 0.70-1.20 [facility] Comment on above: Performed By: #### L 501.2450, L500.4050, L100.0100 ####[facility] [address] [place], [address] ECRCL 84.87 ml/min Normal 50-250 [facility] Comment on above: Performed By: #### L 501.2450, L500.4050, L100.0100 ####[facility] [address] [place], [address] GAP 36 High 5-15 [facility] Comment on above: Performed By: #### L 501.2450, L500.4050, L100.0100 ####[facility] [address] [place], [address] GFR/1.73 sq M.predicted among non-blacks MDRD (S/P/Bld) [Vol rate/Area] 107 mL/min/{1.73_m2} Normal >60 [facility] Comment on above: Result Comment: mL/m in/1.73m2 CKD-EPI Creatinine Equation (2020) Performed By: #### L 501.2450, L500.4050, L100.0100 ####[facility] [address] [place], [address] Globulin (S) [Mass/Vol] 3.2 g/dL Normal 2.2-4.2 [facility] Comment on above: Performed By: #### L 501.2450, L500.4050, L100.0100 ####[facility] [address] [place], [address] Glucose [Mass/Vol] 156 mg/dL High 70-99 [facility] Comment on above: Performed By: #### L 501.2450, L500.4050, L100.0100 ####[facility] [address] [place], [address] Potassium [Moles/Vol] 2.8 mmol/L Low 3.3-5.1 [facility] Comment on above: Performed By: #### L 501.2450, L500.4050, L100.0100 ####[facility] [address] [place], [address] Sodium [Moles/Vol] 139 mmol/L Normal 133-145 [facility] Comment on above: Performed By: #### L 501.2450, L500.4050, L100.0100 ####[facility] [address] [place], [address] T PROT 7.7 g/dL Normal 5.9-8.4 [facility] Comment on above: Performed By: #### L 501.2450, L500.4050, L100.0100 ####[facility] [address] [place], [address] Urea nitrogen [Mass/Vol] 8 mg/dL Normal 4-19 [facility] Comment on above: Performed By: #### L 501.2450, L500.4050, L100.0100 ####[facility] [address] [place], [address] Emergency Department Summary on 04-26-2025 Emergency Department Summary Normal [facility] Eosinophil percentageOrdered By: Humphrey Garcia on 04-26-2025 Eosinophils/100 WBC (Bld) 0.0 % 0-5 [facility] Erythrocyte distribution wid th ratioOrdered By: Humphrey Garcia on 04-26-2025 Erythrocyte distribution width (RBC) [Ratio] 12.8 % 11.6-14.6 [facility] Erythrocyte distribution wid th standard deviationOrdered By: Humphrey Garcia on 04-26-2025 Erythrocyte distribution width (RBC) [Ratio] 49.4 fl High 35.1-43.9 [facility] Glomerular filtration rate ( GFR) estimation/1.73 sq m using serum, plasma, or whole bOrdered By: Humphrey Garcia on 04-26-2025 GFR/1.73 sq M.predicted among non-blacks MDRD (S/P/Bld) [Vol rate/Area] 107 mL/min/{1.73_m2} >60 [facility] Comment on above: mL/min/1.73m2 CKD-EP I Creatinine Equation (2020) H AND P Exam - Hospital[facility] 04-26-2025 H&P Exam - Hospitalist Normal [facility] Hematocrit Auto (Bld) [Volum e fraction]Ordered By: Humphrey Garcia on 04-26-2025 Hematocrit (Bld) [Volume fraction] 42.8 % 37-47 [facility] Hemoglobin measurementOrdere d By: Humphrey Garcia on 04-26-2025 Hemoglobin (Bld) [Mass/Vol] 14.8 g/dL 12.0-15.0 [facility] Immature granulocytes/100 WB C Auto (Bld)Ordered By: Humphrey Garcia on 04-26-2025 Immature granulocytes/100 WBC (Bld) 0.700 % 0.0-0.9 [facility] Comment on above: IG% - Immature Granu locytes (promyelocytes, myelocytes and metamyelocytes) > 1% indicates that a LEFT SHIFT is Present. Ketones Test strip Ql (U)Ord ered By: Humphrey Garcia on 04-26-2025 Ketones Ql (U) 150 mg/dl Negative [facility] Comment on above: CRITICAL VALUE *HCRI TICAL VALUE CALLED TO [id number]/29/25 1638 Angelita Herzog.RESULTS READ BACK BY SAME. Laboratory - Chemistry and C hemistry - challengeOrdered By: Humphrey Garcia on 04-26-2025 AST [Catalytic activity/Vol] 127 U/L High <32 [facility] Lipaseon 04-26-2025 Lipase [Catalytic activity/Vol] 1045 U/L High 13-75 [facility] Comment on above: Result Comment: Plea se note:LIPASE revised reference range effective 23.New Lipase methodology. Expected to produce lower valuesthan the previous assay method.NEW Reference Range: 13 - 75 U/L Performed By: #### L 501.2450, L500.4050, L100.0100 ####[facility] [address] [place], [address] Lipase measurementOrdered By : Humphrey Garcia on 04-26-2025 Lipase [Catalytic activity/Vol] 1045 U/L High 13-75 [facility] Comment on above: Please note:LIPASE r evised reference range effective 23. New Lipase methodology. Expected to produce lower values than the previous assay method. NEW Reference Range: 13 - 75 U/L MCV (mean corpuscular volume ) determinationOrdered By: Humphrey Garcia on 04-26-2025 MCV (RBC) [Entitic vol] 104.6 fL High 81-99 [facility] Mean corpuscular hemoglobin (MCH) determinationOrdered By: Humphrey Garcia on 04-26-2025 MCH (RBC) [Entitic mass] 36.2 pg High 27.0-32.0 [facility] Mean corpuscular hemoglobin concentration (MCHC) determinationOrdered By: Humphrey Garcia on 04-26-2025 MCHC (RBC) [Mass/Vol] 34.6 g/dL 32-36 [facility] Mean platelet volume determi nationOrdered By: Humphrey Garcia on 04-26-2025 Platelet mean volume (Bld) [Entitic vol] 10.0 fL 6.2-12.0 [facility] Microscopic analysis of urin e for red blood cells (RBC)Ordered By: Humphrey Garcia on 04-26-2025 Microscopic analysis of urine for red blood cells (RBC) 0-5 SEEN /hpf 0-5 [facility] Monocyte percentageOrdered B y: Humphrey Garcia on 04-26-2025 Monocytes/100 WBC (Bld) 7.0 % 0-10 [facility] Mucus LM Ql (Urine sed)Order ed By: Humphrey Garcia on 04-26-2025 Mucus Ql (Urine sed) 0 SEEN /hpf [facility] Neutrophil percentageOrdered By: Humphrey Garcia on 04-26-2025 Neutrophils/100 WBC (Bld) 84.6 % High 47-70 [facility] Nitrite Test strip Ql (U)Ord ered By: Humphrey Garcia on 04-26-2025 Nitrite Ql (U) Negative Negative [facility] Nucleated red blood cell per centageOrdered By: Humphrey Garcia on 04-26-2025 Nucleated RBC/100 WBC (Bld) [Ratio] 0.2 % 0-5 [facility] Platelet countOrdered By: Eidson Garcia on 04-26-2025 Platelets (Bld) [#/Vol] 175 10*3/uL 150-450 [facility] Potassium measurement (mass/ volume)Ordered By: Humphrey Garcia on 04-26-2025 Potassium (Unsp spec) [Mass/Vol] 2.8 mmol/L Low 3.3-5.1 [facility] Protein Test strip Ql (U)Ord ered By: Humphrey Garcia on 04-26-2025 Protein Ql (U) 30 mg/dl High Negative [facility] Prothrombin Time w/INRon INR Coag (PPP) [Relative time] 1.0 {INR} Normal [facility] Comment on above: Performed By: #### L 300.3900 ####[facility] [address] [place], [place], [address] PT Coag (PPP) [Time] 13.3 s Normal 11.7-14.9 [facility] Comment on above: Performed By: #### L 300.3900 ####[facility] [address] [place], [place], [address] RBC Auto (Bld) [#/Vol]Ordere d By: Humphrey Garcia on 04-26-2025 RBC (Bld) [#/Vol] 4.09 10*6/uL Low 4.2-5.4 [facility] Serum creatinine measurement (mass/volume)Ordered By: Humphrey Garcia on 04-26-2025 Creatinine [Mass/Vol] 0.70 mg/dL 0.70-1.20 [facility] Serum globulin measurementOr dered By: Humphrey Garcia on 05-29-2025 Globulin (S) [Mass/Vol] 3.2 g/dL 2.2-4.2 [facility] Serum glucose measurement (m ass/volume)Ordered By: Humphrey Garcia on 04-26-2025 Glucose [Mass/Vol] 156 mg/dL High 70-99 [facility] Serum or plasma alanine wilkerson otransferase (ALT) measurementOrdered By: Humphrey Garcia on 04-26-2025 ALT [Catalytic activity/Vol] 62 U/L High <35 [facility] Serum or plasma albumin alphonso urement (mass/volume)Ordered By: Humphrey Garcia on 04-26-2025 Albumin [Mass/Vol] 4.5 g/dL 3.5-5.0 [facility] Serum or plasma albumin/glob ulin mass ratioOrdered By: Humphrey Garcia on 04-26-2025 Albumin/Globulin [Mass ratio] 1.4 {ratio} 0.9-2.4 [facility] Serum or plasma alkaline trinity sphatase measurementOrdered By: Humphrey Garcia on 04-26-2025 ALP [Catalytic activity/Vol] 122 U/L High 35-104 [facility] Serum or plasma calcium alphonso urement (mass/volume)Ordered By: Humphrey Garcia on 04-26-2025 Calcium [Mass/Vol] 8.9 mg/dL 7.6-11.0 [facility] Serum or plasma ethanol alphonso urement (mass/volume)Ordered By: Humphrey Garcia on 04-26-2025 Ethanol [Mass/Vol] mg/dL <10.1 [facility] Comment on above: This test is for med ical purposes only. The legal definition of intoxication varies according to local law. Serum or plasma urea nitroge n measurement (mass/volume)Ordered By: Humphrey Garcia on 04-26-2025 Urea nitrogen [Mass/Vol] 8 mg/dL 4-19 [facility] Sodium levelOrdered By: Scout Garcia on 04-26-2025 Sodium [Moles/Vol] 139 mmol/L 133-145 [facility] Squamous epithelial cells de tection in urine sediment by light microscopyOrdered By: Humphrey Garcia on 04-26-2025 Epithelial cells.squamous LM Ql (Urine sed) 0-5 SEEN /hpf 5-10 [facility] Total proteinOrdered By: Carin Garcia on 04-26-2025 Protein [Mass/Vol] 7.7 g/dL 5.9-8.4 [facility] Urinalysis, Completeon 04-26 EPI,SQUAMOUS 0-5 SEEN Normal 5-10 [facility] Comment on above: Order Comment: CLEAN CATCH Performed By: #### L 400.0001 ####[facility] [address] [place], [address] RBC 0-5 SEEN Normal 0-5 [facility] Comment on above: Order Comment: CLEAN CATCH Performed By: #### L 400.0001 ####[facility] [address] [place], [address] BACTERIA 0 SEEN Normal None Seen [facility] Comment on above: Order Comment: CLEAN CATCH Performed By: #### L 400.0001 ####[facility] [address] [place], [address] Mucus Ql (Urine sed) [address] [facility] Comment on above: Order Comment: CLEAN CATCH Performed By: #### L 400.0001 ####[facility] [address] [place], [address] WBC 0 SEEN Normal 0-5 [facility] Comment on above: Order Comment: CLEAN CATCH Performed By: #### L 400.0001 ####[facility] [address] [place], [address] Urine clarityOrdered By: Carin Garcia on 04-26-2025 Clarity (U) Clear Clear [facility] Urine color determinationOrd ered By: Humphrey Garcia on 04-26-2025 Color (U) Yellow Yellow [facility] Urine glucose detectionOrder ed By: Humphrey Garcia on 04-26-2025 Glucose Ql (U) 1000 mg/dl High Normal [facility] Urine leukocyte esterase det ection by dipstickOrdered By: Humphrey Garcia on 04-26-2025 Leukocyte esterase Test strip Ql (U) Negative Negative [facility] Urine pHOrdered By: Humphrey Juarez nder on 04-26-2025 pH (U) 6.0 [pH] 5.0 - 8.0 [facility] Urine sediment bacteria coun t by microscopy (number/high power field)Ordered By: Humphrey Garcia on 04-26-2025 Bacteria LM.HPF (Urine sed) [#/Area] 0 /[HPF] None Seen [facility] Urine specific gravity measu rementOrdered By: Humphrey Garcia on 04-26-2025 Specific gravity (U) [Rel density] 1.010 1.002-1.030 [facility] Urine urobilinogen measureme ntOrdered By: Humphrey Garcia on 04-26-2025 Urobilinogen Ql (U) 1 mg/dl High Normal [facility] White blood cell (WBC) count Ordered By: Humphrey Garcia on 04-26-2025 WBC (Bld) [#/Vol] 10.4 10*3/uL 4.4-11.0 [facility] White blood cell countOrdere d By: Humphrey Garcia on 04-26-2025 White blood cell count 0 SEEN /hpf 0-5 [facility] 12 Lead EKGon 04-11-2025 12 Lead EKG Normal [facility] Absolute lymphocyte countOrd ered By: Francisco Colon on 04-11-2025 Lymphocytes Auto (Unsp spec) [#/Vol] 2.10 10*3/uL 0.83-4.51 [facility] Absolute neutrophil countOrd ered By: Francisco Colon on 04-11-2025 Neutrophils (Bld) [#/Vol] 2.1 10*3/uL 2.0-7.7 [facility] Alcohol, Blood (Medical)-Ser umon 04-11-2025 SERUM ETOH 328.0 mg/dL Invalid Interpretation Code <=10.0 [facility] Comment on above: Result Comment: Crit ical Result(s) Called at:2346 by: LUISITO VELASQEUZN TO LELANDAL??Results read back by same.This test is for medical purposes only. The legaldefinition of intoxication varies according to local law. Performed By: #### L 501.4021, L100.0100, L500.2500, L501.9100, L501.2450 ####[facility] [address] [place], [address] Anion gap in Serum or Plasma Ordered By: Francisco Colon on 04-11-2025 Anion gap [Moles/Vol] 16 mmol/L High 5-15 [facility] Automated lymphocyte count a s percentage of total leukocytesOrdered By: Francisco Colon on 04-11-2025 Lymphocytes/100 WBC Auto (Unsp spec) 42.0 % High [facility] BUN/creatinine ratioOrdered By: Francisco Colon on 04-11-2025 Urea nitrogen/Creatinine [Mass ratio] 20.2 mg/mg High 09-17 [facility] Basic Metabolic Profile (BMP )on 04-11-2025 BUN/CRE 20.2 RATIO High 09-17 [facility] Comment on above: Performed By: #### L 501.4021, L100.0100, L500.2500, L501.9100, L501.2450 ####[facility] [address] [place], [address] Calcium [Mass/Vol] 8.8 mg/dL Normal 7.6-11.0 [facility] Comment on above: Performed By: #### L 501.4021, L100.0100, L500.2500, L501.9100, L501.2450 ####[facility] [address] [place], [address] Chloride [Moles/Vol] 100 mmol/L Normal 98-108 [facility] Comment on above: Performed By: #### L 501.4021, L100.0100, L500.2500, L501.9100, L501.2450 ####[facility] [address] [place], [address] CO2 [Moles/Vol] 28.2 mmol/L Normal 21.0-32.0 [facility] Comment on above: Performed By: #### L 501.4021, L100.0100, L500.2500, L501.9100, L501.2450 ####[facility] [address] [place], [address] Creatinine [Mass/Vol] 0.53 mg/dL Low 0.70-1.20 [facility] Comment on above: Performed By: #### L 501.4021, L100.0100, L500.2500, L501.9100, L501.2450 ####[facility] [address] [place], [address] ECRCL 112.09 ml/min Normal 50-250 [facility] Comment on above: Performed By: #### L 501.4021, L100.0100, L500.2500, L501.9100, L501.2450 ####[facility] [address] [place], [address] GAP 16 High 5-15 [facility] Comment on above: Performed By: #### L 501.4021, L100.0100, L500.2500, L501.9100, L501.2450 ####[facility] [address] [place], [address] GFR/1.73 sq M.predicted among non-blacks MDRD (S/P/Bld) [Vol rate/Area] 114 mL/min/{1.73_m2} Normal >60 [facility] Comment on above: Result Comment: mL/m in/1.73m2 CKD-EPI Creatinine Equation (2020) Performed By: #### L 501.4021, L100.0100, L500.2500, L501.9100, L501.2450 ####[facility] [address] [place], [address] Glucose [Mass/Vol] 131 mg/dL High 70-99 [facility] Comment on above: Performed By: #### L 501.4021, L100.0100, L500.2500, L501.9100, L501.2450 ####[facility] [address] [place], [address] Potassium [Moles/Vol] 3.2 mmol/L Low 3.3-5.1 [facility] Comment on above: Performed By: #### L 501.4021, L100.0100, L500.2500, L501.9100, L501.2450 ####[facility] [address] [place], [address] Sodium [Moles/Vol] 144 mmol/L Normal 133-145 [facility] Comment on above: Performed By: #### L 501.4021, L100.0100, L500.2500, L501.9100, L501.2450 ####[facility] [address] [place], [address] Urea nitrogen [Mass/Vol] 11 mg/dL Normal 4-19 [facility] Comment on above: Performed By: #### L 501.4021, L100.0100, L500.2500, L501.9100, L501.2450 ####[facility] [address] [place], [address] Basophil percentageOrdered B y: Francisco Colon on 04-11-2025 Basophils/100 WBC (Bld) 1.2 % High 0-1 [facility] Bilirubin Test strip Ql (U)O rdered By: Francisco Colon on 04-11-2025 Bilirubin Ql (U) Negative Negative [facility] CBC W/Diff, Automatedon 03-29 Absolute Lymph 2.10 X10 3/uL Normal 0.83-4.51 [facility] Comment on above: Performed By: #### L 501.4021, L100.0100, L500.2500, L501.9100, L501.2450 ####[facility] [address] [place], [address] Absolute Neut 2.1 X10 3/uL Normal 2.0-7.7 [facility] Comment on above: Performed By: #### L 501.4021, L100.0100, L500.2500, L501.9100, L501.2450 ####[facility] [address] [place], [address] Basophils/100 WBC (Bld) 1.2 % High 0-1 [facility] Comment on above: Performed By: #### L 501.4021, L100.0100, L500.2500, L501.9100, L501.2450 ####[facility] [address] [place], [address] Eosinophils/100 WBC (Bld) 0.8 % Normal 0-5 [facility] Comment on above: Performed By: #### L 501.4021, L100.0100, L500.2500, L501.9100, L501.2450 ####[facility] [address] [place], [address] Erythrocyte distribution width (RBC) [Ratio] 13.5 % Normal 11.6-14.6 [facility] Comment on above: Performed By: #### L 501.4021, L100.0100, L500.2500, L501.9100, L501.2450 ####[facility] [address] [place], [address] Hematocrit (Bld) [Volume fraction] 37.7 % Normal 37-47 [facility] Comment on above: Performed By: #### L 501.4021, L100.0100, L500.2500, L501.9100, L501.2450 ####[facility] [address] [place], [address] Hemoglobin (Bld) [Mass/Vol] 13.5 g/dL Normal 12.0-15.0 [facility] Comment on above: Performed By: #### L 501.4021, L100.0100, L500.2500, L501.9100, L501.2450 ####[facility] [address] [place], [address] IG% 0.200 Normal 0.0-0.9 [facility] Comment on above: Result Comment: IG% - Immature Granulocytes (promyelocytes, myelocytes andmetamyelocytes) > 1% indicates that a LEFT SHIFT is Present. Performed By: #### L 501.4021, L100.0100, L500.2500, L501.9100, L501.2450 ####[facility] [address] [place], [address] Lymphocytes/100 WBC (Bld) 42.0 % High 19-41 [facility] Comment on above: Performed By: #### L 501.4021, L100.0100, L500.2500, L501.9100, L501.2450 ####[facility] [address] [place], [address] MCH (RBC) [Entitic mass] 37.4 pg High 27.0-32.0 [facility] Comment on above: Performed By: #### L 501.4021, L100.0100, L500.2500, L501.9100, L501.2450 ####[facility] [address] [place], [address] MCHC (RBC) [Mass/Vol] 35.8 g/dL Normal 32-36 [facility] Comment on above: Performed By: #### L 501.4021, L100.0100, L500.2500, L501.9100, L501.2450 ####[facility] [address] [place], [address] MCV (RBC) [Entitic vol] 104.4 fL High 81-99 [facility] Comment on above: Performed By: #### L 501.4021, L100.0100, L500.2500, L501.9100, L501.2450 ####[facility] [address] [place], [address] Monocytes/100 WBC (Bld) 13.2 % High 0-10 [facility] Comment on above: Performed By: #### L 501.4021, L100.0100, L500.2500, L501.9100, L501.2450 ####[facility] [address] [place], [address] Neutrophils/100 WBC (Bld) 42.6 % Low 47-70 [facility] Comment on above: Performed By: #### L 501.4021, L100.0100, L500.2500, L501.9100, L501.2450 ####[facility] [address] [place], [address] Nucleated RBC (Bld) [#/Vol] 0.4 10*3/uL Normal 0-5 [facility] Comment on above: Performed By: #### L 501.4021, L100.0100, L500.2500, L501.9100, L501.2450 ####[facility] [address] [place], [address] Platelet mean volume (Bld) [Entitic vol] 9.6 fL Normal 6.2-12.0 [facility] Comment on above: Performed By: #### L 501.4021, L100.0100, L500.2500, L501.9100, L501.2450 ####[facility] [address] [place], [address] Platelets (Bld) [#/Vol] 246 10*3/uL Normal 150-450 [facility] Comment on above: Performed By: #### L 501.4021, L100.0100, L500.2500, L501.9100, L501.2450 ####[facility] [address] [place], [address] RBC (Bld) [#/Vol] 3.61 10*6/uL Low 4.2-5.4 [facility] Comment on above: Performed By: #### L 501.4021, L100.0100, L500.2500, L501.9100, L501.2450 ####[facility] [address] [place], [address] RDW SD 51.4 fl High 35.1-43.9 [facility] Comment on above: Performed By: #### L 501.4021, L100.0100, L500.2500, L501.9100, L501.2450 ####[facility] [address] [place], [address] WBC (Bld) [#/Vol] 5.0 10*3/uL Normal 4.4-11.0 [facility] Comment on above: Performed By: #### L 501.4021, L100.0100, L500.2500, L501.9100, L501.2450 ####[facility] [address] [place], [address] Carbon dioxide, total [Moles /volume] in Central venous bloodOrdered By: Francisco Colon on 04-11-2025 CO2 [Moles/Vol] 28.2 mmol/L 21.0-32.0 [facility] Chest PA and Lateralon 04-11 Chest PA and Lateral Normal [facility] Chloride assayOrdered By: Peyman Colon on 04-11-2025 Chloride [Moles/Vol] 100 mmol/L 98-108 [facility] Emergency Department Summary on 04-11-2025 Emergency Department Summary Normal [facility] Eosinophil percentageOrdered By: Francisco Colon on 04-11-2025 Eosinophils/100 WBC (Bld) 0.8 % 0-5 [facility] Erythrocyte distribution wid th ratioOrdered By: Francisco Colon on 04-11-2025 Erythrocyte distribution width (RBC) [Ratio] 13.5 % 11.6-14.6 [facility] Erythrocyte distribution wid th standard deviationOrdered By: Francisco Colon on 04-11-2025 Erythrocyte distribution width (RBC) [Ratio] 51.4 fl High 35.1-43.9 [facility] Glomerular filtration rate ( GFR) estimation/1.73 sq m using serum, plasma, or whole bOrdered By: Francisco Colon on 04-11-2025 GFR/1.73 sq M.predicted among non-blacks MDRD (S/P/Bld) [Vol rate/Area] 114 mL/min/{1.73_m2} >60 [facility] Comment on above: mL/min/1.73m2 CKD-EP I Creatinine Equation (2020) Hematocrit Auto (Bld) [Volum e fraction]Ordered By: Francisco Colon on 04-11-2025 Hematocrit (Bld) [Volume fraction] 37.7 % 37-47 [facility] Hemoglobin measurementOrdere d By: Francisco Colon on 04-11-2025 Hemoglobin (Bld) [Mass/Vol] 13.5 g/dL 12.0-15.0 [facility] Immature granulocytes/100 WB C Auto (Bld)Ordered By: Francisco Colon on 04-11-2025 Immature granulocytes/100 WBC (Bld) 0.200 % 0.0-0.9 [facility] Comment on above: IG% - Immature Granu locytes (promyelocytes, myelocytes and metamyelocytes) > 1% indicates that a LEFT SHIFT is Present. Ketones Test strip Ql (U)Ord ered By: Francisco Colon on 04-11-2025 Ketones Ql (U) Negative Negative [facility] L501.4021on 04-11-2025 Trop T High Sen < 6 Normal <=14 [facility] Comment on above: Performed By: #### L 501.4021, L100.0100, L500.2500, L501.9100, L501.2450 ####[facility] [address] [place], [address] Lipaseon 04-11-2025 Lipase [Catalytic activity/Vol] 70 U/L Normal 13-75 [facility] Comment on above: Result Comment: Pledaysi se note:LIPASE revised reference range effective 23.New Lipase methodology. Expected to produce lower valuesthan the previous assay method.NEW Reference Range: 13 - 75 U/L Performed By: #### L 501.4021, L100.0100, L500.2500, L501.9100, L501.2450 ####[facility] [address] [place], [address] Lipase measurementOrdered By : Francisco Colon on 04-11-2025 Lipase [Catalytic activity/Vol] 70 U/L 13-75 [facility] Comment on above: Please note:LIPASE r evised reference range effective 23. New Lipase methodology. Expected to produce lower values than the previous assay method. NEW Reference Range: 13 - 75 U/L MCV (mean corpuscular volume ) determinationOrdered By: Francisco Colon on 04-11-2025 MCV (RBC) [Entitic vol] 104.4 fL High 81-99 [facility] Mean corpuscular hemoglobin (MCH) determinationOrdered By: Francisco Colon on 04-11-2025 MCH (RBC) [Entitic mass] 37.4 pg High 27.0-32.0 [facility] Mean corpuscular hemoglobin concentration (MCHC) determinationOrdered By: Francisco Colon on 04-11-2025 MCHC (RBC) [Mass/Vol] 35.8 g/dL 32-36 [facility] Mean platelet volume determi nationOrdered By: Francisco Colon on 04-11-2025 Platelet mean volume (Bld) [Entitic vol] 9.6 fL 6.2-12.0 [facility] Microscopic analysis of urin e for red blood cells (RBC)Ordered By: Francisco Colon on 04-11-2025 Microscopic analysis of urine for red blood cells (RBC) 0 SEEN /hpf 0-5 [facility] Monocyte percentageOrdered B y: Francisco Colon on 04-11-2025 Monocytes/100 WBC (Bld) 13.2 % High 0-10 [facility] Mucus LM Ql (Urine sed)Order ed By: Francisco Colon on 04-11-2025 Mucus Ql (Urine sed) 0 SEEN /hpf [facility] Neutrophil percentageOrdered By: Francisco Colon on 04-11-2025 Neutrophils/100 WBC (Bld) 42.6 % Low 47-70 [facility] Nitrite Test strip Ql (U)Ord ered By: Francisco Colon on 04-11-2025 Nitrite Ql (U) Negative Negative [facility] Nucleated red blood cell per centageOrdered By: Francisco Colon on 04-11-2025 Nucleated RBC/100 WBC (Bld) [Ratio] 0.4 % 0-5 [facility] Platelet countOrdered By: Peyman Colon on 04-11-2025 Platelets (Bld) [#/Vol] 246 10*3/uL 150-450 [facility] Potassium measurement (mass/ volume)Ordered By: Francisco Colon on 04-11-2025 Potassium (Unsp spec) [Mass/Vol] 3.2 mmol/L Low 3.3-5.1 [facility] Protein Test strip Ql (U)Ord ered By: Francisco Colon on 04-11-2025 Protein Ql (U) 15 mg/dl High Negative [facility] RBC Auto (Bld) [#/Vol]Ordere d By: Francisco Colon on 04-11-2025 RBC (Bld) [#/Vol] 3.61 10*6/uL Low 4.2-5.4 [facility] Serum creatinine measurement (mass/volume)Ordered By: Francisco Colon on 04-11-2025 Creatinine [Mass/Vol] 0.53 mg/dL Low 0.70-1.20 [facility] Serum glucose measurement (m ass/volume)Ordered By: Francisco Colon on 04-11-2025 Glucose [Mass/Vol] 131 mg/dL High 70-99 [facility] Serum or plasma calcium alphonso urement (mass/volume)Ordered By: Francisco Colon on 04-11-2025 Calcium [Mass/Vol] 8.8 mg/dL 7.6-11.0 [facility] Serum or plasma ethanol alphonso urement (mass/volume)Ordered By: Francisco Colon on 04-11-2025 Ethanol [Mass/Vol] 328.0 mg/dL High <10.1 [facility] Comment on above: Critical Result(s) C alled at:1986 by: LUISITO LUJAN Results read back by same.This test is for medical purposes only. The legal definition of intoxication varies according to local law. Serum or plasma urea nitroge n measurement (mass/volume)Ordered By: Francisco Colon on 04-11-2025 Urea nitrogen [Mass/Vol] 11 mg/dL 4-19 [facility] Sodium levelOrdered By: Francisco Colon on 04-11-2025 Sodium [Moles/Vol] 144 mmol/L 133-145 [facility] Squamous epithelial cells de tection in urine sediment by light microscopyOrdered By: Francisco Colon on 04-11-2025 Epithelial cells.squamous LM Ql (Urine sed) 0 SEEN /hpf - [facility] Troponin T.cardiac [Mass/vol ume] in Serum or Plasma by High sensitivity methodOrdered By: Francisco Colon on 04-11-2025 Troponin T.cardiac High sensitivity method [Mass/Vol] < 6 ng/L <14 [facility] Urinalysis, Completeon 04-11 BACTERIA 0 SEEN Normal None Seen [facility] Comment on above: Order Comment: [place] CTOR TO SPECIFY Performed By: #### L 400.0001 ####[facility] [address] [facility] [address] EPI,SQUAMOUS 0 SEEN Normal - [facility] Comment on above: Order Comment: [place] CTOR TO SPECIFY Performed By: #### L 400.0001 ####[facility] [address] [place], [address] Mucus Ql (Urine sed) [address] [facility] Comment on above: Order Comment: [place] CTOR TO SPECIFY Performed By: #### L 400.0001 ####[facility] [address] [place], [address] RBC 0 SEEN Normal 0-5 [facility] Comment on above: Order Comment: [place] CTOR TO SPECIFY Performed By: #### L 400.0001 ####[facility] [address] [place], [address] WBC 0 SEEN Normal 0-5 [facility] Comment on above: Order Comment: [place] CTOR TO SPECIFY Performed By: #### L 400.0001 ####[facility] [address] [place], [address] Urine clarityOrdered By: Rommel Colon on 04-11-2025 Clarity (U) Clear Clear [facility] Urine color determinationOrd ered By: Francisco Colon on 04-11-2025 Color (U) Yellow Yellow [facility] Urine glucose detectionOrder ed By: Francisco Colon on 04-11-2025 Glucose Ql (U) Normal mg/dl Normal [facility] Urine leukocyte esterase det ection by dipstickOrdered By: Francisco Colon on 04-11-2025 Leukocyte esterase Test strip Ql (U) Negative Negative [facility] Urine pHOrdered By: Francisco Rosenberg ghbecky on 04-11-2025 pH (U) 7.0 [pH] 5.0 - 8.0 [facility] Urine sediment bacteria coun t by microscopy (number/high power field)Ordered By: Francisco Colon on 04-11-2025 Bacteria LM.HPF (Urine sed) [#/Area] 0 /[HPF] None Seen [facility] Urine specific gravity measu rementOrdered By: Francisco Colon on 04-11-2025 Specific gravity (U) [Rel density] 1.010 1.002-1.030 [facility] Urine urobilinogen measureme ntOrdered By: Francisco Colon on 04-11-2025 Urobilinogen Ql (U) Normal mg/dl Normal [facility] White blood cell (WBC) count Ordered By: Francisco Colon on 04-11-2025 WBC (Bld) [#/Vol] 5.0 10*3/uL 4.4-11.0 [facility] White blood cell countOrdere d By: Francisco Colon on 04-11-2025 White blood cell count 0 SEEN /hpf 0-5 [facility] 12 Lead EKGon 04-04-2025 12 Lead EKG Normal [facility] Abdomen/Pelvis W IV Cont ONL Yon 04-04-2025 Abdomen/Pelvis W IV Cont ONLY Normal [facility] Absolute lymphocyte countOrd ered By: ED PROVIDER on 04-04-2025 Lymphocytes Auto (Unsp spec) [#/Vol] 1.23 10*3/uL 0.83-4.51 [facility] Absolute neutrophil countOrd ered By: ED PROVIDER on 04-04-2025 Neutrophils (Bld) [#/Vol] 6.8 10*3/uL 2.0-7.7 [facility] Anion gap in Serum or Plasma Ordered By: Imani Knight on 04-04-2025 Anion gap [Moles/Vol] 18 mmol/L High 5-15 [facility] Automated lymphocyte count a s percentage of total leukocytesOrdered By: ED PROVIDER on 04-04-2025 Lymphocytes/100 WBC Auto (Unsp spec) 14.0 % Low 19-41 [facility] BUN/creatinine ratioOrdered By: Imani Knight on 04-04-2025 Urea nitrogen/Creatinine [Mass ratio] 8.7 mg/mg Low 10-20 [facility] Basic Metabolic Profile (BMP )on 04-04-2025 BUN/CRE 8.7 RATIO Low 10- [facility] Comment on above: Performed By: #### L 501.4021, L100.0100, L500.2500 ####[facility] [address] [place], [address] Calcium [Mass/Vol] 8.4 mg/dL Normal 7.6-11.0 [facility] Comment on above: Performed By: #### L 501.4021, L100.0100, L500.2500 ####[facility] [address] [place], [address] Chloride [Moles/Vol] 94 mmol/L Low 98-108 [facility] Comment on above: Performed By: #### L 501.4021, L100.0100, L500.2500 ####[facility] [address] [place], [address] CO2 [Moles/Vol] 27.3 mmol/L Normal 21.0-32.0 [facility] Comment on above: Performed By: #### L 501.4021, L100.0100, L500.2500 ####[facility] [address] [place], [address] Creatinine [Mass/Vol] 0.55 mg/dL Low 0.70-1.20 [facility] Comment on above: Performed By: #### L 501.4021, L100.0100, L500.2500 ####[facility] [address] [place], [address] GAP 18 High 5-15 [facility] Comment on above: Performed By: #### L 501.4021, L100.0100, L500.2500 ####[facility] [address] [place], [address] GFR/1.73 sq M.predicted among non-blacks MDRD (S/P/Bld) [Vol rate/Area] 113 mL/min/{1.73_m2} Normal >60 [facility] Comment on above: Result Comment: mL/m in/1.73m2 CKD-EPI Creatinine Equation (2020) Performed By: #### L 501.4021, L100.0100, L500.2500 ####[facility] [address] [place], [address] Glucose [Mass/Vol] 131 mg/dL High 70-99 [facility] Comment on above: Performed By: #### L 501.4021, L100.0100, L500.2500 ####[facility] [address] [place], [address] Potassium [Moles/Vol] 2.9 mmol/L Low 3.3-5.1 [facility] Comment on above: Performed By: #### L 501.4021, L100.0100, L500.2500 ####[facility] [address] [place], [address] Sodium [Moles/Vol] 139 mmol/L Normal 133-145 [facility] Comment on above: Performed By: #### L 501.4021, L100.0100, L500.2500 ####[facility] [address] [place], [address] Urea nitrogen [Mass/Vol] 5 mg/dL Normal 4-19 [facility] Comment on above: Performed By: #### L 501.4021, L100.0100, L500.2500 ####[facility] [address] [place], [address] Basophil percentageOrdered B y: ED PROVIDER on 04-04-2025 Basophils/100 WBC (Bld) 0.7 % 0-1 [facility] Bilirubin directOrdered By: Imani Knight on 04-04-2025 Bilirubin.direct [Mass/Vol] 0.67 mg/dL High 0.00-0.30 [facility] Bilirubin, totalOrdered By: Imani Knight on 04-04-2025 Bilirubin [Mass/Vol] 1.26 mg/dL 0.00-1.30 [facility] CBC W/Diff, Automatedon Absolute Lymph 1.23 X10 3/uL Normal 0.83-4.51 [facility] Comment on above: Performed By: #### L 501.4021, L100.0100, L500.2500 ####[facility] [address] [place], [address] Absolute Neut 6.8 X10 3/uL Normal 2.0-7.7 [facility] Comment on above: Performed By: #### L 501.4021, L100.0100, L500.2500 ####[facility] [address] [place], [address] Basophils/100 WBC (Bld) 0.7 % Normal 0-1 [facility] Comment on above: Performed By: #### L 501.4021, L100.0100, L500.2500 ####[facility] [address] [place], [address] Eosinophils/100 WBC (Bld) 0.2 % Normal 0-5 [facility] Comment on above: Performed By: #### L 501.4021, L100.0100, L500.2500 ####[facility] [address] [place], [address] Erythrocyte distribution width (RBC) [Ratio] 13.5 % Normal 11.6-14.6 [facility] Comment on above: Performed By: #### L 501.4021, L100.0100, L500.2500 ####[facility] [address] [place], [address] Hematocrit (Bld) [Volume fraction] 40.3 % Normal 37-47 [facility] Comment on above: Performed By: #### L 501.4021, L100.0100, L500.2500 ####[facility] [address] [place], [address] Hemoglobin (Bld) [Mass/Vol] 14.3 g/dL Normal 12.0-15.0 [facility] Comment on above: Performed By: #### L 501.4021, L100.0100, L500.2500 ####[facility] [address] [place], [address] IG% 0.300 Normal 0.0-0.9 [facility] Comment on above: Result Comment: IG% - Immature Granulocytes (promyelocytes, myelocytes andmetamyelocytes) > 1% indicates that a LEFT SHIFT is Present. Performed By: #### L 501.4021, L100.0100, L500.2500 ####[facility] [address] [place], [address] Lymphocytes/100 WBC (Bld) 14.0 % Low 19-41 [facility] Comment on above: Performed By: #### L 501.4021, L100.0100, L500.2500 ####[facility] [address] [place], [address] MCH (RBC) [Entitic mass] 35.4 pg High 27.0-32.0 [facility] Comment on above: Performed By: #### L 501.4021, L100.0100, L500.2500 ####[facility] [address] [place], [address] MCHC (RBC) [Mass/Vol] 35.5 g/dL Normal 32-36 [facility] Comment on above: Performed By: #### L 501.4021, L100.0100, L500.2500 ####[facility] [address] [place], [address] MCV (RBC) [Entitic vol] 99.8 fL High 81-99 [facility] Comment on above: Performed By: #### L 501.4021, L100.0100, L500.2500 ####[facility] [address] [place], [address] Monocytes/100 WBC (Bld) 7.8 % Normal 0-10 [facility] Comment on above: Performed By: #### L 501.4021, L100.0100, L500.2500 ####[facility] [address] [place], [address] Neutrophils/100 WBC (Bld) 77.0 % High 47-70 [facility] Comment on above: Performed By: #### L 501.4021, L100.0100, L500.2500 ####[facility] [address] [place], [address] Nucleated RBC (Bld) [#/Vol] 0.2 10*3/uL Normal 0-5 [facility] Comment on above: Performed By: #### L 501.4021, L100.0100, L500.2500 ####[facility] [address] [place], [address] Platelet mean volume (Bld) [Entitic vol] 10.0 fL Normal 6.2-12.0 [facility] Comment on above: Performed By: #### L 501.4021, L100.0100, L500.2500 ####[facility] [address] [place], [address] Platelets (Bld) [#/Vol] 186 10*3/uL Normal 150-450 [facility] Comment on above: Performed By: #### L 501.4021, L100.0100, L500.2500 ####[facility] [address] [place], [address] RBC (Bld) [#/Vol] 4.04 10*6/uL Low 4.2-5.4 [facility] Comment on above: Performed By: #### L 501.4021, L100.0100, L500.2500 ####[facility] [address] [place], [address] RDW SD 50.3 fl High 35.1-43.9 [facility] Comment on above: Performed By: #### L 501.4021, L100.0100, L500.2500 ####[facility] [address] [place], [address] WBC (Bld) [#/Vol] 8.8 10*3/uL Normal 4.4-11.0 [facility] Comment on above: Performed By: #### L 501.4021, L100.0100, L500.2500 ####[facility] [address] [place], [address] Carbon dioxide, total [Moles /volume] in Central venous bloodOrdered By: Imani Knight on 04-04-2025 CO2 [Moles/Vol] 27.3 mmol/L 21.0-32.0 [facility] Chest 1 View (Portable)on Chest 1 View (Portable) Normal [facility] Chloride assayOrdered By: Nash Knight on 04-04-2025 Chloride [Moles/Vol] 94 mmol/L Low 98-108 [facility] Emergency Department Summary on 04-04-2025 Emergency Department Summary Normal [facility] Eosinophil percentageOrdered By: ED PROVIDER on 04-04-2025 Eosinophils/100 WBC (Bld) 0.2 % 0-5 [facility] Erythrocyte distribution wid th ratioOrdered By: ED PROVIDER on 04-04-2025 Erythrocyte distribution width (RBC) [Ratio] 13.5 % 11.6-14.6 [facility] Erythrocyte distribution wid th standard deviationOrdered By: ED PROVIDER on 04-04-2025 Erythrocyte distribution width (RBC) [Ratio] 50.3 fl High 35.1-43.9 [facility] Glomerular filtration rate ( GFR) estimation/1.73 sq m using serum, plasma, or whole bOrdered By: Imani Knight on 04-04-2025 GFR/1.73 sq M.predicted among non-blacks MDRD (S/P/Bld) [Vol rate/Area] 113 mL/min/{1.73_m2} >60 [facility] Comment on above: mL/min/1.73m2 CKD-EP I Creatinine Equation (2020) Hematocrit Auto (Bld) [Volum e fraction]Ordered By: ED PROVIDER on 04-04-2025 Hematocrit (Bld) [Volume fraction] 40.3 % 37-47 [facility] Hemoglobin measurementOrdere d By: ED PROVIDER on 04-04-2025 Hemoglobin (Bld) [Mass/Vol] 14.3 g/dL 12.0-15.0 [facility] Immature granulocytes/100 WB C Auto (Bld)Ordered By: ED PROVIDER on 04-04-2025 Immature granulocytes/100 WBC (Bld) 0.300 % 0.0-0.9 [facility] Comment on above: IG% - Immature Granu locytes (promyelocytes, myelocytes and metamyelocytes) > 1% indicates that a LEFT SHIFT is Present. L499.0042on 04-04-2025 Trop T High Sen < 6 Normal <=14 [facility] Comment on above: Performed By: #### L 499.0042 ####[facility] [address] [place], [address] L499.0043on 04-04-2025 Trop T High Sen Normal <=14 [facility] Comment on above: Result Comment: CHUY ENT DISCHARGED Performed By: #### L 499.0043 ####[facility] [address] [place], [address] L501.4021on 04-04-2025 Trop T High Sen < 6 Normal <=14 [facility] Comment on above: Performed By: #### L 501.4021, L100.0100, L500.2500 ####[facility] [address] [place], [address] Laboratory - Chemistry and C hemistry - challengeOrdered By: Imani Knight on 04-04-2025 AST [Catalytic activity/Vol] 75 U/L High <32 [facility] Lipaseon 04-04-2025 Lipase [Catalytic activity/Vol] 26 U/L Normal 13-75 [facility] Comment on above: Result Comment: Plea se note:LIPASE revised reference range effective 23.New Lipase methodology. Expected to produce lower valuesthan the previous assay method.NEW Reference Range: 13 - 75 U/L Performed By: #### L 500.3400, L501.5200, L501.2450 ####[facility] [address] [place], [address] Lipase measurementOrdered By : Imani Knight on 04-04-2025 Lipase [Catalytic activity/Vol] 26 U/L 13-75 [facility] Comment on above: Please note:LIPASE r evised reference range effective 23. New Lipase methodology. Expected to produce lower values than the previous assay method. NEW Reference Range: 13 - 75 U/L Liver Profileon 04-04-2025 Albumin [Mass/Vol] 4.1 g/dL Normal 3.5-5.0 [facility] Comment on above: Performed By: #### L 500.3400, L501.5200, L501.2450 ####[facility] [address] [place], [address] ALK PHOS 91 U/L Normal 35-104 [facility] Comment on above: Performed By: #### L 500.3400, L501.5200, L501.2450 ####[facility] [address] [place], [address] ALT [Catalytic activity/Vol] 44 U/L High <=34 [facility] Comment on above: Performed By: #### L 500.3400, L501.5200, L501.2450 ####[facility] [address] [place], [address] AST [Catalytic activity/Vol] 75 U/L High <=31 [facility] Comment on above: Performed By: #### L 500.3400, L501.5200, L501.2450 ####[facility] [address] [place], [address] Bilirubin [Mass/Vol] 1.26 mg/dL Normal 0.00-1.30 [facility] Comment on above: Performed By: #### L 500.3400, L501.5200, L501.2450 ####[facility] [address] [place], [address] Bilirubin.direct [Mass/Vol] 0.67 mg/dL High 0.00-0.30 [facility] Comment on above: Performed By: #### L 500.3400, L501.5200, L501.2450 ####[facility] [address] [place], [address] Globulin (S) [Mass/Vol] 3.3 g/dL Normal 2.2-4.2 [facility] Comment on above: Performed By: #### L 500.3400, L501.5200, L501.2450 ####[facility] [address] [place], [address] T PROT 7.3 g/dL Normal 5.9-8.4 [facility] Comment on above: Performed By: #### L 500.3400, L501.5200, L501.2450 ####[facility] [address] [place], [address] MCV (mean corpuscular volume ) determinationOrdered By: ED PROVIDER on 04-04-2025 MCV (RBC) [Entitic vol] 99.8 fL High 81-99 [facility] Magnesiumon 04-04-2025 Magnesium [Mass/Vol] 0.6 mg/dL Invalid Interpretation Code 1.5-2.2 [facility] Comment on above: Result Comment: Crit ical Result(s) Called at: 04/04/2025-12: by: Francesco to Meredith Fairchild.??Results read back by same. Performed By: #### L 500.3400, L501.5200, L501.2450 ####[facility] [address] [place], [address] Magnesium measurement (mass/ volume)Ordered By: Imani Knight on 04-04-2025 Magnesium (Unsp spec) [Mass/Vol] 0.6 mg/dL Low 1.5-2.2 [facility] Comment on above: Critical Result(s) C alled at: 04/04/2025-: by: Ru Fairchild. Results read back by same. Mean corpuscular hemoglobin (MCH) determinationOrdered By: ED PROVIDER on 04-04-2025 MCH (RBC) [Entitic mass] 35.4 pg High 27.0-32.0 [facility] Mean corpuscular hemoglobin concentration (MCHC) determinationOrdered By: ED PROVIDER on 04-04-2025 MCHC (RBC) [Mass/Vol] 35.5 g/dL 32-36 [facility] Mean platelet volume determi nationOrdered By: ED PROVIDER on 04-04-2025 Platelet mean volume (Bld) [Entitic vol] 10.0 fL 6.2-12.0 [facility] Monocyte percentageOrdered B y: ED PROVIDER on 04-04-2025 Monocytes/100 WBC (Bld) 7.8 % 0-10 [facility] Neutrophil percentageOrdered By: ED PROVIDER on 04-04-2025 Neutrophils/100 WBC (Bld) 77.0 % High 47-70 [facility] No Panel InformationOrdered By: Imain Knight on 04-04-2025 75 U/L High <32 [facility] Nucleated red blood cell per centageOrdered By: ED PROVIDER on 04-04-2025 Nucleated RBC/100 WBC (Bld) [Ratio] 0.2 % 0-5 [facility] Platelet countOrdered By: ED PROVIDER on 04-04-2025 Platelets (Bld) [#/Vol] 186 10*3/uL 150-450 [facility] Potassium measurement (mass/ volume)Ordered By: Imani Knight on 04-04-2025 Potassium (Unsp spec) [Mass/Vol] 2.9 mmol/L Low 3.3-5.1 [facility] RBC Auto (Bld) [#/Vol]Ordere d By: ED PROVIDER on 04-04-2025 RBC (Bld) [#/Vol] 4.04 10*6/uL Low 4.2-5.4 [facility] Serum creatinine measurement (mass/volume)Ordered By: Imani Knight on 04-04-2025 Creatinine [Mass/Vol] 0.55 mg/dL Low 0.70-1.20 [facility] Serum globulin measurementOr dered By: Imani Knight on 04-04-2025 Globulin (S) [Mass/Vol] 3.3 g/dL 2.2-4.2 [facility] Serum glucose measurement (m ass/volume)Ordered By: Imani Knight on 04-04-2025 Glucose [Mass/Vol] 131 mg/dL High 70-99 [facility] Serum or plasma alanine wilkerson otransferase (ALT) measurementOrdered By: Imani Knight on 04-04-2025 ALT [Catalytic activity/Vol] 44 U/L High <35 [facility] Serum or plasma albumin alphonso urement (mass/volume)Ordered By: Imani Knight on 04-04-2025 Albumin [Mass/Vol] 4.1 g/dL 3.5-5.0 [facility] Serum or plasma alkaline trinity sphatase measurementOrdered By: Imani Knight on 04-04-2025 ALP [Catalytic activity/Vol] 91 U/L 35-104 [facility] Serum or plasma calcium alphonso urement (mass/volume)Ordered By: Imani Knight on 04-04-2025 Calcium [Mass/Vol] 8.4 mg/dL 7.6-11.0 [facility] Serum or plasma urea nitroge n measurement (mass/volume)Ordered By: Imani Knight on 04-04-2025 Urea nitrogen [Mass/Vol] 5 mg/dL 4-19 [facility] Sodium levelOrdered By: Radha Knight on 04-04-2025 Sodium [Moles/Vol] 139 mmol/L 133-145 [facility] Total proteinOrdered By: Gwen Knight on 04-04-2025 Protein [Mass/Vol] 7.3 g/dL 5.9-8.4 [facility] Troponin T.cardiac [Mass/vol ume] in Serum or Plasma by High sensitivity methodOrdered By: Imani Knight on 04-04-2025 Troponin T.cardiac High sensitivity method [Mass/Vol] < 6 ng/L <14 [facility] Troponin T.cardiac High sensitivity method [Mass/Vol] < 6 ng/L <14 [facility] White blood cell (WBC) count Ordered By: ED PROVIDER on 04-04-2025 WBC (Bld) [#/Vol] 8.8 10*3/uL 4.4-11.0 [facility] 12 Lead EKGon 11-12-2024 12 Lead EKG Normal [facility] Basic Metabolic Profile (BMP )on 11-12-2024 BUN/CRE 23.8 RATIO High 10-20 [facility] Comment on above: Order Comment: 1Y Performed By: #### L 500.2500, L501.5425, L300.8000, L501.5200, L700.6800, L100.0100 ####[facility] [address] [place], [address] CA,Total 8.1 mg/dL Low 8.5-10.1 [facility] Comment on above: Order Comment: 1Y Performed By: #### L 500.2500, L501.5425, L300.8000, L501.5200, L700.6800, L100.0100 ####[facility] [address] [place], [address] Chloride [Moles/Vol] 99 mmol/L Normal 98-107 [facility] Comment on above: Order Comment: 1Y Performed By: #### L 500.2500, L501.5425, L300.8000, L501.5200, L700.6800, L100.0100 ####[facility] [address] [place], [address] CO2 [Moles/Vol] 27.0 mmol/L Normal 21.0-32.0 [facility] Comment on above: Order Comment: 1Y Performed By: #### L 500.2500, L501.5425, L300.8000, L501.5200, L700.6800, L100.0100 ####[facility] [address] [place], [address] Creatinine [Mass/Vol] 0.59 mg/dL Normal 0.55-1.02 [facility] Comment on above: Order Comment: 1Y Result Comment: The validity of the calculated GFR GFRAA in patients over70 years has not been determined. Clinical correlation isessential. Performed By: #### L 500.2500, L501.5425, L300.8000, L501.5200, L700.6800, L100.0100 ####[facility] [address] [place], [address] ECRCL 112.29 ml/min Normal [facility] Comment on above: Order Comment: 1Y Performed By: #### L 500.2500, L501.5425, L300.8000, L501.5200, L700.6800, L100.0100 ####[facility] [address] [place], [address] EST GFR - AA 140 mL/min Normal >60 [facility] Comment on above: Order Comment: 1Y Result Comment: Afri can [place] GFR Calc Performed By: #### L 500.2500, L501.5425, L300.8000, L501.5200, L700.6800, L100.0100 ####[facility] [address] [place], [address] GAP 9 Normal 5-15 [facility] Comment on above: Order Comment: 1Y Performed By: #### L 500.2500, L501.5425, L300.8000, L501.5200, L700.6800, L100.0100 ####[facility] [address] [place], [address] GFR/1.73 sq M.predicted among non-blacks MDRD (S/P/Bld) [Vol rate/Area] 116 mL/min/{1.73_m2} Normal >60 [facility] Comment on above: Order Comment: 1Y Result Comment: Non- GFR Calc Performed By: #### L 500.2500, L501.5425, L300.8000, L501.5200, L700.6800, L100.0100 ####[facility] [address] [place], [address] Glucose [Mass/Vol] 131 mg/dL High 74-106 [facility] Comment on above: Order Comment: 1Y Result Comment: Fast ing Glucose result greater than or equal to 126 mg/dLsuggests DIABETES MELLITUS per A.D.A. criteria. Performed By: #### L 500.2500, L501.5425, L300.8000, L501.5200, L700.6800, L100.0100 ####[facility] [address] [place], [address] Potassium [Moles/Vol] 3.7 mmol/L Normal 3.5-5.1 [facility] Comment on above: Order Comment: 1Y Performed By: #### L 500.2500, L501.5425, L300.8000, L501.5200, L700.6800, L100.0100 ####[facility] [address] [place], [address] Sodium [Moles/Vol] 135 mmol/L Low 136-145 [facility] Comment on above: Order Comment: 1Y Performed By: #### L 500.2500, L501.5425, L300.8000, L501.5200, L700.6800, L100.0100 ####[facility] [address] [place], [address] Urea nitrogen [Mass/Vol] 14 mg/dL Normal 7-18 [facility] Comment on above: Order Comment: 1Y Performed By: #### L 500.2500, L501.5425, L300.8000, L501.5200, L700.6800, L100.0100 ####[facility] [address] [place], [address] CBC W/Diff, Automatedon 12-12 03-2023 Absolute Lymph 1.29 X10 3/uL Normal 0.83-4.51 [facility] Comment on above: Performed By: #### L 500.2500, L501.5425, L300.8000, L501.5200, L700.6800, L100.0100 ####[facility] [address] [place], [address] Absolute Neut 6.5 X10 3/uL Normal 2.0-7.7 [facility] Comment on above: Performed By: #### L 500.2500, L501.5425, L300.8000, L501.5200, L700.6800, L100.0100 ####[facility] [address] [place], [address] Basophils/100 WBC (Bld) 0.5 % Normal 0-1 [facility] Comment on above: Performed By: #### L 500.2500, L501.5425, L300.8000, L501.5200, L700.6800, L100.0100 ####[facility] [address] [place], [address] Eosinophils/100 WBC (Bld) 1.2 % Normal 0-5 [facility] Comment on above: Performed By: #### L 500.2500, L501.5425, L300.8000, L501.5200, L700.6800, L100.0100 ####[facility] [address] [place], [address] Erythrocyte distribution width (RBC) [Ratio] 13.1 % Normal 11.6-14.6 [facility] Comment on above: Performed By: #### L 500.2500, L501.5425, L300.8000, L501.5200, L700.6800, L100.0100 ####[facility] [address] [place], [address] Hematocrit (Bld) [Volume fraction] 37.7 % Normal 37-47 [facility] Comment on above: Performed By: #### L 500.2500, L501.5425, L300.8000, L501.5200, L700.6800, L100.0100 ####[facility] [address] [place], [address] Hemoglobin (Bld) [Mass/Vol] 12.9 g/dL Normal 12.0-15.0 [facility] Comment on above: Performed By: #### L 500.2500, L501.5425, L300.8000, L501.5200, L700.6800, L100.0100 ####[facility] [address] [place], [address] IG% 0.200 Normal 0.0-0.9 [facility] Comment on above: Result Comment: IG% - Immature Granulocytes (promyelocytes, myelocytes andmetamyelocytes) > 1% indicates that a LEFT SHIFT is Present. Performed By: #### L 500.2500, L501.5425, L300.8000, L501.5200, L700.6800, L100.0100 ####[facility] [address] [place], [address] Lymphocytes/100 WBC (Bld) 15.1 % Low 19-41 [facility] Comment on above: Performed By: #### L 500.2500, L501.5425, L300.8000, L501.5200, L700.6800, L100.0100 ####[facility] [address] [place], [address] MCH (RBC) [Entitic mass] 33.7 pg High 27.0-32.0 [facility] Comment on above: Performed By: #### L 500.2500, L501.5425, L300.8000, L501.5200, L700.6800, L100.0100 ####[facility] [address] [place], [address] MCHC (RBC) [Mass/Vol] 34.2 g/dL Normal 32-36 [facility] Comment on above: Performed By: #### L 500.2500, L501.5425, L300.8000, L501.5200, L700.6800, L100.0100 ####[facility] [address] [place], [address] MCV (RBC) [Entitic vol] 98.4 fL Normal 81-99 [facility] Comment on above: Performed By: #### L 500.2500, L501.5425, L300.8000, L501.5200, L700.6800, L100.0100 ####[facility] [address] [place], [address] Monocytes/100 WBC (Bld) 6.9 % Normal 0-10 [facility] Comment on above: Performed By: #### L 500.2500, L501.5425, L300.8000, L501.5200, L700.6800, L100.0100 ####[facility] [address] [place], [address] Neutrophils/100 WBC (Bld) 76.1 % High 47-70 [facility] Comment on above: Performed By: #### L 500.2500, L501.5425, L300.8000, L501.5200, L700.6800, L100.0100 ####[facility] [address] [place], [address] Nucleated RBC (Bld) [#/Vol] 0 10*3/uL Normal 0-5 [facility] Comment on above: Performed By: #### L 500.2500, L501.5425, L300.8000, L501.5200, L700.6800, L100.0100 ####[facility] [address] [place], [address] Platelet mean volume (Bld) [Entitic vol] 9.2 fL Normal 6.2-12.0 [facility] Comment on above: Performed By: #### L 500.2500, L501.5425, L300.8000, L501.5200, L700.6800, L100.0100 ####[facility] [address] [place], [address] Platelets (Bld) [#/Vol] 211 10*3/uL Normal 150-450 [facility] Comment on above: Performed By: #### L 500.2500, L501.5425, L300.8000, L501.5200, L700.6800, L100.0100 ####[facility] [address] [place], [address] RBC (Bld) [#/Vol] 3.83 10*6/uL Low 4.2-5.4 [facility] Comment on above: Performed By: #### L 500.2500, L501.5425, L300.8000, L501.5200, L700.6800, L100.0100 ####[facility] [address] [place], [place], [id number](030) RDW SD 46.6 fl High 35.1-43.9 [facility] Comment on above: Performed By: #### L 500.2500, L501.5425, L300.8000, L501.5200, L700.6800, L100.0100 ####[facility] [address] [place], [address] WBC (Bld) [#/Vol] 8.6 10*3/uL Normal 4.4-11.0 [facility] Comment on above: Performed By: #### L 500.2500, L501.5425, L300.8000, L501.5200, L700.6800, L100.0100 ####[facility] [address] [place], [place], [id number] CTA Chest W/WO Contraston CTA Chest W/WO Contrast Normal [facility] Chest 1 View (Portable)on Chest 1 View (Portable) Normal [facility] D-Dimer Quantitative (DVT/PE )on 11-12-2024 D-DIMER QUANT 0.74 FEU/ug/m Invalid Interpretation Code 0.27-0.49 [facility] Comment on above: Order Comment: CRITI FLORECITA VALUE CALLED TO /15/24 Renee Queen.RESULTS READ BACK BY same. Result Comment: D-Di clive ELEVATED (>0.49): Additional studies and clinicalassessments are indicated to conclude diagnosis of:Deep Vein Thrombosis (DVT) or Pulmonary Embolism (PE) Performed By: #### L 500.2500, L501.5425, L300.8000, L501.5200, L700.6800, L100.0100 ####[facility] [address] [place], [place], [address] Emergency Department Summary on 11-12-2024 Emergency Department Summary Normal [facility] L501.4020on 11-12-2024 TROPONIN-I HS 6 pg/mL Normal 3.0-54.0 [facility] Comment on above: Result Comment: Plea se Note: New Test Units and Gender Specific Reference Ranges. For more information see Policy Stat Procedure [place] High Sensitivity Troponin (TNIH) and attachments. Performed By: #### L 501.4020 ####[facility] [address] [place], [place], [address] L501.5425on 11-12-2024 TROPONIN-I HS 6 pg/mL Normal 3.0-54.0 [facility] Comment on above: Order Comment: 1Y Result Comment: Plea se Note: New Test Units and Gender Specific Reference Ranges. For more information see Policy Stat Procedure [place] High Sensitivity Troponin (TNIH) and attachments. Performed By: #### L 500.2500, L501.5425, L300.8000, L501.5200, L700.6800, L100.0100 ####[facility] [address] [place], [address] Magnesiumon 11-12-2024 Magnesium [Mass/Vol] 1.1 mg/dL Low 1.6-2.6 [facility] Comment on above: Order Comment: 1Y Performed By: #### L 500.2500, L501.5425, L300.8000, L501.5200, L700.6800, L100.0100 ####[facility] [address] [place], [place], [id number] ,Serum,hCG Quali.on 11-12-2024 HCG, SERUM QUAL Negative Normal [facility] Comment on above: Performed By: #### L 500.2500, L501.5425, L300.8000, L501.5200, L700.6800, L100.0100 ####[facility] [address] [place], [address] Orthopedic Visit Reporton Orthopedic Visit Report Normal [facility] Spine Lumbar (Routine)on Spine Lumbar (Routine) Normal [facility] L/S Spine Min 4 Viewson 08-01 L/S Spine Min 4 Views Normal [facility] Orthopedic Visit Reporton Orthopedic Visit Report Normal [facility] CNOVon 04-22-2024 CNOV Office Visit (UCWSTR ) JOSEPH RINCON ([id number]) 1975 F NFR Date Time Provider Department 04/22/24 1:30 PM [facility] During your visit today, we recorded the following information about you: Temperature Pulse Respiration Blood pressure 97.4 degrees 115/minute 20/minute 120/84 Weight 75.8 kg Aretha Schofield APRN.ASSEMBLING 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 04/22/2024 2:02 PM Signed Subjective Sinus Problem [...] since qu (more content not included)... Normal [facility] Basophil percentageOrdered B y: Milana Jose on 03-21-2024 Bilirubin [Mass/Vol] 0.60 mg/dL 0.20-1.00 [facility] Comment on above: For patients on eltr ombopag therapy, use of Dimension [place] TBIL is not recommended. Chloride [Moles/Vol] 105 mmol/L 98-[address] [facility] Glucose [Mass/Vol] 121 mg/dL 74-106 [facility] Comment on above: Fasting Glucose resu lt from 100 to 125 mg/dL suggests IMPAIRED HOMEOSTASIS per A.D.A. criteria. Potassium [Moles/Vol] 4.0 mmol/L 3.5-5.1 [facility] Protein [Mass/Vol] 7.6 g/dL 6.4-8.2 [facility] Sodium [Moles/Vol] 136 mmol/L 136-145 [facility] Laboratory - Chemistry and C hemistry - challengeOrdered By: Milana Garcia on 03-21-2024 Albumin/Globulin [Mass ratio] 0.9 {ratio} 0.9-2.4 [facility] ALP [Catalytic activity/Vol] 67 U/L 45-117 [facility] ALT [Catalytic activity/Vol] 27 U/L 13-56 [facility] CO2 [Moles/Vol] 24.0 mmol/L 21.0-32.0 [facility] Globulin (S) [Mass/Vol] 4.0 g/dL 2.2-4.2 [facility] Magnesium [Mass/Vol] 1.7 mg/dL 1.6-2.6 [facility] Sodium (U) [Moles/Vol] 104 mmol/L Not Establ. [facility] Urea nitrogen/Creatinine [Mass ratio] 21.6 mg/mg 10-20 [facility] No Panel InformationOrdered By: Milana Garcia on 03-21-2024 Estimated GFR (MDRD) Amer 108 mL/min >60 [facility] Comment on above: GFR Calc Estimated GFR (MDRD) Non-Af Amer 89 mL/min >60 [facility] Comment on above: Non- GFR Calc Serum or plasma calcium alphonso urement (mass/volume)Ordered By: Milana Garcia on 03-21-2024 Calcium [Mass/Vol] 8.8 mg/dL 8.5-10.1 [facility] Serum or plasma creatinine m easurement (mass/volume)Ordered By: Milana Garcia on 03-21-2024 Creatinine [Mass/Vol] 0.74 mg/dL 0.55-1.02 [facility] Comment on above: The validity of the calculated GFR & GFRAA in patients over 70 years has not been determined. Clinical correlation is essential. Serum or plasma thyroid stim ulating hormone (TSH) measurement (units/volume)Ordered By: Milana Garcia on 03-21-2024 TSH Qn 1.06 uIU/mL 0.358-3.74 [facility] Serum or plasma urea nitroge n measurement (mass/volume)Ordered By: Milana Garcia on 03-21-2024 Urea nitrogen [Mass/Vol] 16 mg/dL 7-18 [facility] Thin prep Papanicolaou smear with manual screeningOrdered By: Milana Garcia on 03-21-2024 Thin prep Papanicolaou smear with manual screening 3.6 g/dL 3.2-5.0 [facility] Thin prep Papanicolaou smear with manual screening 22 U/L 15-37 [facility] Thin prep Papanicolaou smear with manual screening 7 5-15 [facility] Thin prep Papanicolaou smear with manual screening 286 mOsm/KG 275-295 [facility] Urine osmolality measurement Ordered By: Milana Garcia on 03-21-2024 Osmolality (U) [Osmolality] 535 mOsm/KG >50 [facility] Comment on above: Normal Urine Referen ce Ranges Random: 50 - 1200 mOsm/kg H20 depending on fluid intake Random: >850 mOsm/kg after 12 hour fluid restriction 24 hour: ~300 - 900 mOsm/kg H2O Absolute lymphocyte countOrd ered By: Caprice Jerry on 01-24-2024 Lymphocytes Auto (Unsp spec) [#/Vol] 3.36 10*3/uL 0.83-4.51 [facility] Automated lymphocyte count a s percentage of total leukocytesOrdered By: Caprice Jerry on 01-24-2024 Lymphocytes/100 WBC Auto (Unsp spec) 33.3 % 19-41 [facility] Basophil percentageOrdered B y: Caprice Jerry on 01-24-2024 Basophils/100 WBC (Bld) 0.8 % 0-1 [facility] Chloride [Moles/Vol] 104 mmol/L 98-107 [facility] Eosinophils/100 WBC (Bld) 1.6 % 0-5 [facility] Glucose [Mass/Vol] 110 mg/dL 74-106 [facility] Comment on above: Fasting Glucose resu lt from 100 to 125 mg/dL suggests IMPAIRED HOMEOSTASIS per A.D.A. criteria. Hemoglobin (Bld) [Mass/Vol] 12.5 g/dL 12.0-15.0 [facility] Monocytes/100 WBC (Bld) 9.1 % 0-10 [facility] Neutrophils (Bld) [#/Vol] 5.5 10*3/uL 2.0-7.7 [facility] Neutrophils/100 WBC (Bld) 54.8 % 47-70 [facility] Potassium [Moles/Vol] 3.9 mmol/L 3.5-5.1 [facility] Sodium [Moles/Vol] 138 mmol/L 136-145 [facility] WBC (Bld) [#/Vol] 10.1 10*3/uL 4.4-11.0 [facility] Basophil percentageOrdered B y: Ainsley Bean on 01-24-2024 Bilirubin [Mass/Vol] 0.30 mg/dL 0.20-1.00 [facility] Comment on above: For patients on eltr ombopag therapy, use of Dimension [place] TBIL is not recommended. Protein [Mass/Vol] 7.1 g/dL 6.4-8.2 [facility] Determination of erythrocyte mean corpuscular volume (MCV)Ordered By: Caprice Jerry on 01-24-2024 MCV (RBC) [Entitic vol] 95.9 fL 81-99 [facility] Direct bilirubinOrdered By: Ainsley Bean on 01-24-2024 Bilirubin.direct [Mass/Vol] 0.12 mg/dL 0.00-0.30 [facility] Erythrocyte distribution wid th ratioOrdered By: Caprice Jerry on 01-24-2024 Erythrocyte distribution width (RBC) [Ratio] 11.9 % 11.6-14.6 [facility] Erythrocyte distribution wid th standard deviationOrdered By: Caprice Jerry on 01-24-2024 Erythrocyte distribution width (RBC) [Entitic vol] 41.5 fL 35.1-43.9 [facility] Hematocrit Auto (Bld) [Volum e fraction]Ordered By: Caprice Jerry on 01-24-2024 Hematocrit (Bld) [Volume fraction] 37.4 % 37-47 [facility] Immature granulocytes/100 WB C Auto (Bld)Ordered By: Caprice Jerry on 01-24-2024 Immature granulocytes/100 WBC (Bld) 0.400 % 0.0-0.9 [facility] Comment on above: IG% - Immature Granu locytes (promyelocytes, myelocytes and metamyelocytes) > 1% indicates that a LEFT SHIFT is Present. Laboratory - Chemistry and C hemistry - challengeOrdered By: Ainsley Bean on 01-24-2024 ALP [Catalytic activity/Vol] 69 U/L 45-117 [facility] ALT [Catalytic activity/Vol] 23 U/L 13-56 [facility] Globulin (S) [Mass/Vol] 3.7 g/dL 2.2-4.2 [facility] Lipase [Catalytic activity/Vol] 88 U/L 13-75 [facility] Comment on above: Please note:LIPASE r evised reference range effective 23. New Lipase methodology. Expected to produce lower values than the previous assay method. NEW Reference Range: 13 - 75 U/L Laboratory - Chemistry and C hemistry - challengeOrdered By: Caprice Jerry on 01-24-2024 CO2 [Moles/Vol] 29.0 mmol/L 21.0-32.0 [facility] Urea nitrogen/Creatinine [Mass ratio] 21.7 mg/mg 10-20 [facility] Laboratory - Hematology and Cell countsOrdered By: Caprice Jerry on 01-24-2024 MCH (RBC) [Entitic mass] 32.1 pg 27.0-32.0 [facility] MCHC (RBC) [Mass/Vol] 33.4 g/dL 32-36 [facility] Nucleated RBC/100 WBC (Bld) [Ratio] 0 % 0-5 [facility] Platelet mean volume (Bld) [Entitic vol] 9.6 fL 6.2-12.0 [facility] Platelets (Bld) [#/Vol] 264 10*3/uL 150-450 [facility] No Panel InformationOrdered By: Ainsley Bean on 01-24-2024 Troponin I High Sensitivity 4 pg/mL 3.0-54.0 [facility] Comment on above: Please Note: New Miri t Units and Gender Specific Reference Ranges. For more information see Policy Stat Procedure [place] High Sensitivity Troponin (TNIH) and attachments. No Panel InformationOrdered By: Caprice Jerry on 01-24-2024 Estimated GFR (MDRD) Amer 108 mL/min >60 [facility] Comment on above: GFR Calc Estimated GFR (MDRD) Non-Af Amer 90 mL/min >60 [facility] Comment on above: Non- GFR Calc RBC Auto (Bld) [#/Vol]Ordere d By: Caprice Jerry on 01-24-2024 RBC (Bld) [#/Vol] 3.90 10*6/uL 4.2-5.4 [facility] Serum or plasma calcium alphonso urement (mass/volume)Ordered By: Caprice Jerry on 01-24-2024 Calcium [Mass/Vol] 10.1 mg/dL 8.5-10.1 [facility] Serum or plasma creatinine m easurement (mass/volume)Ordered By: Caprice Jerry on 01-24-2024 Creatinine [Mass/Vol] 0.74 mg/dL 0.55-1.02 [facility] Comment on above: The validity of the calculated GFR & GFRAA in patients over 70 years has not been determined. Clinical correlation is essential. Serum or plasma urea nitroge n measurement (mass/volume)Ordered By: Caprice Jerry on 01-24-2024 Urea nitrogen [Mass/Vol] 16 mg/dL 7-18 [facility] Thin prep Papanicolaou smear with manual screeningOrdered By: Ainsley Bean on 01-24-2024 Thin prep Papanicolaou smear with manual screening 3.4 g/dL 3.2-5.0 [facility] Thin prep Papanicolaou smear with manual screening 25 U/L 15-37 [facility] Comment on above: Slight Hemolysis, Re sult may be falsely increased. Thin prep Papanicolaou smear with manual screeningOrdered By: Caprice Jerry on 01-24-2024 Thin prep Papanicolaou smear with manual screening 5 5-15 [facility] Absolute lymphocyte countOrd ered By: Caprice Jerry on 10-10-2023 Lymphocytes Auto (Unsp spec) [#/Vol] 0.98 10*3/uL 0.83-4.51 [facility] Basophil percentageOrdered B y: Caprice Jerry on 10-10-2023 Basophils/100 WBC (Bld) 0.3 % 0-1 [facility] Bilirubin [Mass/Vol] 1.00 mg/dL 0.20-1.00 [facility] Comment on above: For patients on eltr ombopag therapy, use of Dimension [place] TBIL is not recommended. Chloride [Moles/Vol] 103 mmol/L 98-107 [facility] Eosinophils/100 WBC (Bld) 0.2 % 0-5 [facility] Glucose [Mass/Vol] 175 mg/dL 74-106 [facility] Comment on above: Fasting Glucose resu lt greater than or equal to 126 mg/dL suggests DIABETES MELLITUS per A.D.A. criteria. Neutrophils (Bld) [#/Vol] 7.6 10*3/uL 2.0-7.7 [facility] Neutrophils/100 WBC (Bld) 81.6 % 47-70 [facility] Potassium [Moles/Vol] 3.9 mmol/L 3.5-5.1 [facility] Protein [Mass/Vol] 7.3 g/dL 6.4-8.2 [facility] Sodium [Moles/Vol] 133 mmol/L 136-145 [facility] WBC (Bld) [#/Vol] 9.3 10*3/uL 4.4-11.0 [facility] Blood erythrocytes count (nu mber/volume)Ordered By: Caprice Jerry on 10-10-2023 RBC (Bld) [#/Vol] 4.14 10*6/uL 4.2-5.4 [facility] Blood hemoglobin measurement (mass/volume)Ordered By: Caprice Jerry on 10-10-2023 Hemoglobin (Bld) [Mass/Vol] 13.5 g/dL 12.0-15.0 [facility] Blood lymphocytes/100 leukoc ytesOrdered By: Caprice Jerry on 10-10-2023 Lymphocytes/100 WBC (Bld) 10.6 % 19-41 [facility] Blood monocytes/100 leukocyt esOrdered By: Caprice Jerry on 10-10-2023 Monocytes/100 WBC (Bld) 7.0 % 0-10 [facility] Blood platelet mean volumeOr dered By: Caprice Jerry on 10-10-2023 Platelet mean volume (Bld) [Entitic vol] 9.7 fL 6.2-12.0 [facility] Determination of erythrocyte mean corpuscular volume (MCV)Ordered By: Caprice Jerry on 10-10-2023 MCV (RBC) [Entitic vol] 98.3 fL 81-99 [facility] Direct bilirubinOrdered By: Caprice Jerry on 10-10-2023 Bilirubin.direct [Mass/Vol] 0.30 mg/dL 0.00-0.30 [facility] Hematocrit Auto (Bld) [Volum e fraction]Ordered By: Caprice Jerry on 10-10-2023 Hematocrit (Bld) [Volume fraction] 40.7 % 37-47 [facility] Influenza virus A and B and SARS-CoV-2 (COVID-19) Ag panel - Upper respiratory specimOrdered By: Caprice Jerry on 10-10-2023 SARS-CoV-2 (COVID-19) RNA ALLEY+probe Ql (Resp) [facility] Laboratory - Chemistry and C hemistry - challengeOrdered By: Caprice Jerry on 10-10-2023 ALP [Catalytic activity/Vol] 97 U/L 45-117 [facility] ALT [Catalytic activity/Vol] 54 U/L 13-56 [facility] CO2 [Moles/Vol] 22.0 mmol/L 21.0-32.0 [facility] Globulin (S) [Mass/Vol] 3.8 g/dL 2.2-4.2 [facility] Lipase [Catalytic activity/Vol] 45 U/L 13-75 [facility] Comment on above: Please note:LIPASE r evised reference range effective 23. New Lipase methodology. Expected to produce lower values than the previous assay method. NEW Reference Range: 13 - 75 U/L Urea nitrogen/Creatinine [Mass ratio] 8.9 mg/mg 10-20 [facility] Laboratory - Hematology and Cell countsOrdered By: Caprice Jerry on 10-10-2023 Erythrocyte distribution width (RBC) [Entitic vol] 44.4 fL 35.1-43.9 [facility] Erythrocyte distribution width (RBC) [Ratio] 12.4 % 11.6-14.6 [facility] Immature granulocytes/100 WBC (Bld) 0.300 % 0.0-0.9 [facility] Comment on above: IG% - Immature Granu locytes (promyelocytes, myelocytes and metamyelocytes) > 1% indicates that a LEFT SHIFT is Present. MCH (RBC) [Entitic mass] 32.6 pg 27.0-32.0 [facility] Nucleated RBC/100 WBC (Bld) [Ratio] 0 % 0-5 [facility] MCHC Auto (RBC) [Mass/Vol]Or dered By: Caprice Jerry on 10-10-2023 MCHC (RBC) [Mass/Vol] 33.2 g/dL 32-36 [facility] No Panel InformationOrdered By: Caprice Jerry on 10-10-2023 D-Dimer Quantitative (PE/DVT) 0.45 FEU/ug/m 0.27-0.49 [facility] Comment on above: NORMAL D-Dimer level (<0.50) indicates no DVT or PE. Estimated Creatinine Clearance Calc 31.78 ml/min [facility] Estimated GFR (MDRD) Amer 36 mL/min >60 [facility] Comment on above: GFR Calc Estimated GFR (MDRD) Non-Af Amer 30 mL/min >60 [facility] Comment on above: Non- GFR Calc Troponin I High Sensitivity 12 pg/mL 3.0-54.0 [facility] Comment on above: Please Note: New [place] t Units and Gender Specific Reference Ranges. For more information see Policy Stat Procedure [place] High Sensitivity Troponin (TNIH) and attachments. Platelets bldOrdered By: Leona Jerry on 10-10-2023 Platelets (Bld) [#/Vol] 255 10*3/uL 150-450 [facility] Serum or plasma albumin alphonso urement (mass/volume)Ordered By: Caprice Jerry on 10-10-2023 Albumin [Mass/Vol] 3.5 g/dL 3.2-5.0 [facility] Serum or plasma calcium alphonso urement (mass/volume)Ordered By: Caprice Jerry on 10-10-2023 Calcium [Mass/Vol] 8.1 mg/dL 8.5-10.1 [facility] Serum or plasma creatinine m easurement (mass/volume)Ordered By: Caprice Jerry on 10-10-2023 Creatinine [Mass/Vol] 1.91 mg/dL 0.55-1.02 [facility] Comment on above: The validity of the calculated GFR & GFRAA in patients over 70 years has not been determined. Clinical correlation is essential. Serum or plasma urea nitroge n measurement (mass/volume)Ordered By: Caprice Jerry on 10-10-2023 Urea nitrogen [Mass/Vol] 17 mg/dL 06-15 [facility] Thin prep Papanicolaou smear with manual screeningOrdered By: Caprice Jerry on 10-10-2023 Thin prep Papanicolaou smear with manual screening 68 U/L 15 [facility] Thin prep Papanicolaou smear with manual screening 8 5-15 [facility] No Panel Informationon 09-15 POC SARS CoV-2 Antigen Negative [facility] Basophil percentageOrdered B y: Jim Manriquez on 08-25-2023 Bilirubin [Mass/Vol] 0.20 mg/dL 0.20-1.00 [facility] Comment on above: For patients on eltr ombopag therapy, use of Dimension [place] TBIL is not recommended. Cholesterol [Mass/Vol] 224 mg/dL <200 [facility] Comment on above: <200 mg/dL Desirable 200-240 mg/dL Borderline >240 mg/dL High Risk Protein [Mass/Vol] 7.2 g/dL 6.4-8.2 [facility] Triglyceride [Mass/Vol] 405 mg/dL <199 [facility] Comment on above: The drugs N-Acetylcy steine [...] on 08-25-2023 Bilirubin.direct [Mass/Vol] 0.10 mg/dL 0.00-0.30 [facility] Laboratory - Chemistry and C hemistry - challengeOrdered By: Jim Manriquez on 08-25-2023 ALP [Catalytic activity/Vol] 97 U/L 45-117 [facility] ALT [Catalytic activity/Vol] 88 U/L 13-56 [facility] Globulin (S) [Mass/Vol] 3.7 g/dL 2.2-4.2 [facility] Lipase [Catalytic activity/Vol] 53 U/L 13-75 [facility] Comment on above: Please note:LIPASE r evised reference range effective 23. New Lipase methodology. Expected to produce lower values than the previous assay method. NEW Reference Range: 13 - 75 U/L Serum or plasma albumin alphonso urement (mass/volume)Ordered By: Jim Manriquez on 08-25-2023 Albumin [Mass/Vol] 3.5 g/dL 3.2-5.0 [facility] Serum or plasma cholesterol in HDL measurement (mass/volume)Ordered By: Jim Manriquez on 08-25-2023 Cholesterol in HDL [Mass/Vol] 61 mg/dL >40 [facility] Comment on above: The drugs N-Acetylcy steine and Metamizole may falsely depress this assay. Reference Range HDL <40 mg/dL Low HDL Cholesterol HDL >or= 60 mg/dL High HDL Cholesterol Serum or plasma cholesterol in VLDL measurement (mass/volume)Ordered By: Jim Manriquez on 08-25-2023 Cholesterol in VLDL [Mass/Vol] [facility] Comment on above: Test not performed Serum or plasma low density lipoprotein (LDL) cholesterol measurement (mass/volume)Ordered By: Jim Manriquez on 08-25-2023 Cholesterol in LDL [Mass/Vol] [facility] Comment on above: Test not performed Thin prep Papanicolaou smear with manual screeningOrdered By: Jim Manriquez on 08-25-2023 Thin prep Papanicolaou smear with manual screening 43 U/L 15-37 [facility] Absolute lymphocyte countOrd ered By: Jennifer Davila on 08-23-2023 Lymphocytes Auto (Unsp spec) [#/Vol] 2.29 10*3/uL 0.83-4.51 [facility] Basophil percentageOrdered B y: Jennifer Davila on 08-23-2023 Basophil percentage 0 SEEN /hpf 0-5 [facility] Basophils/100 WBC (Bld) 0.5 % 0-1 [facility] Bilirubin [Mass/Vol] 0.30 mg/dL 0.20-1.00 [facility] Comment on above: For patients on eltr ombopag therapy, use of Dimension [place] TBIL is not recommended. Chloride [Moles/Vol] 103 mmol/L 98-107 [facility] Eosinophils/100 WBC (Bld) 1.6 % 0-5 [facility] Glucose [Mass/Vol] 205 mg/dL 74-106 [facility] Comment on above: Glucose result great er than or equal to 200 mg/dLsuggests DIABETES MELLITUS per A.D.A. criteria. Neutrophils (Bld) [#/Vol] 7.5 10*3/uL 2.0-7.7 [facility] Neutrophils/100 WBC (Bld) 69.4 % 47-70 [facility] Potassium [Moles/Vol] 4.3 mmol/L 3.5-5.1 [facility] Protein [Mass/Vol] 7.8 g/dL 6.4-8.2 [facility] Sodium [Moles/Vol] 135 mmol/L 136-145 [facility] WBC (Bld) [#/Vol] 10.8 10*3/uL 4.4-11.0 [facility] Bilirubin Test strip Ql (U)O rdered By: Jennifer Davila on 08-23-2023 Bilirubin Ql (U) Negative Negative [facility] Blood erythrocytes count (nu mber/volume)Ordered By: Jennifer Davila on 08-23-2023 RBC (Bld) [#/Vol] 4.30 10*6/uL 4.2-5.4 [facility] Blood hemoglobin measurement (mass/volume)Ordered By: Jennifer Davila on 08-23-2023 Hemoglobin (Bld) [Mass/Vol] 14.0 g/dL 12.0-15.0 [facility] Blood lymphocytes/100 leukoc ytesOrdered By: Jennifer Davila on 08-23-2023 Lymphocytes/100 WBC (Bld) 21.3 % 19-41 [facility] Blood monocytes/100 leukocyt esOrdered By: Jennifer Davila on 08-23-2023 Monocytes/100 WBC (Bld) 6.7 % 0-10 [facility] Blood platelet mean volumeOr dered By: Jennifer Davila on 08-23-2023 Platelet mean volume (Bld) [Entitic vol] 9.6 fL 6.2-12.0 [facility] Determination of erythrocyte mean corpuscular volume (MCV)Ordered By: Jennifer Davila on 08-23-2023 MCV (RBC) [Entitic vol] 97.9 fL 81-99 [facility] Hematocrit Auto (Bld) [Volum e fraction]Ordered By: Jennifer Davila on 08-23-2023 Hematocrit (Bld) [Volume fraction] 42.1 % 37-47 [facility] Ketones Test strip Ql (U)Ord ered By: Jennifer Davila on 08-23-2023 Ketones Ql (U) Negative Negative [facility] Laboratory - Chemistry and C hemistry - challengeOrdered By: Jennifer Davila on 08-23-2023 ALP [Catalytic activity/Vol] 69 U/L 45-117 [facility] ALT [Catalytic activity/Vol] 26 U/L 13-56 [facility] CO2 [Moles/Vol] 24.0 mmol/L 21.0-32.0 [facility] Globulin (S) [Mass/Vol] 4.2 g/dL 2.2-4.2 [facility] Lipase [Catalytic activity/Vol] 41 U/L 13-75 [facility] Comment on above: Please note:LIPASE r evised reference range effective 23. New Lipase methodology. Expected to produce lower values than the previous assay method. NEW Reference Range: 13 - 75 U/L Urea nitrogen/Creatinine [Mass ratio] 9.5 mg/mg 10-20 [facility] Laboratory - Hematology and Cell countsOrdered By: Jennifer Davila on 08-23-2023 Erythrocyte distribution width (RBC) [Entitic vol] 45.9 fL 35.1-43.9 [facility] Erythrocyte distribution width (RBC) [Ratio] 12.8 % 11.6-14.6 [facility] Immature granulocytes/100 WBC (Bld) 0.500 % 0.0-0.9 [facility] Comment on above: IG% - Immature Granu locytes (promyelocytes, myelocytes and metamyelocytes) > 1% indicates that a LEFT SHIFT is Present. MCH (RBC) [Entitic mass] 32.6 pg 27.0-32.0 [facility] Nucleated RBC/100 WBC (Bld) [Ratio] 0 % 0-5 [facility] MCHC Auto (RBC) [Mass/Vol]Or dered By: Jennifer Davila on 08-23-2023 MCHC (RBC) [Mass/Vol] 33.3 g/dL 32-36 [facility] Mucus LM Ql (Urine sed)Order ed By: Jennifer Davila on 08-23-2023 Mucus Ql (Urine sed) 0 SEEN /hpf [facility] Nitrite Test strip Ql (U)Ord ered By: Jennifer Davila on 08-23-2023 Nitrite Ql (U) Negative Negative [facility] No Panel InformationOrdered By: Jennifer Davila on 08-23-2023 Estimated Creatinine Clearance Calc 57.81 ml/min [facility] Estimated GFR (MDRD) Amer 72 mL/min >60 [facility] Comment on above: GFR Calc Estimated GFR (MDRD) Non-Af Amer 60 mL/min >60 [facility] Comment on above: Non- GFR Calc Troponin I High Sensitivity 3 pg/mL 3.0-54.0 [facility] Comment on above: Please Note: New [place]i t Units and Gender Specific Reference Ranges. For more information see Policy Stat Procedure [place] High Sensitivity Troponin (TNIH) and attachments. Platelets bldOrdered By: Kole Davila on 08-23-2023 Platelets (Bld) [#/Vol] 264 10*3/uL 150-450 [facility] Protein Test strip Ql (U)Ord ered By: Jennifer Davila on 08-23-2023 Protein Ql (U) Negative Negative [facility] Serum or plasma albumin alphonso urement (mass/volume)Ordered By: Jennifer Davila on 08-23-2023 Albumin [Mass/Vol] 3.6 g/dL 3.2-5.0 [facility] Serum or plasma albumin/glob ulin mass ratioOrdered By: Jennifer Davila on 08-23-2023 Albumin/Globulin [Mass ratio] 0.9 {ratio} 0.9-2.4 [facility] Serum or plasma calcium alphonso urement (mass/volume)Ordered By: Jennifer Davila on 08-23-2023 Calcium [Mass/Vol] 8.8 mg/dL 8.5-10.1 [facility] Serum or plasma creatinine m easurement (mass/volume)Ordered By: Jennifer Davila on 08-23-2023 Creatinine [Mass/Vol] 1.05 mg/dL 0.55-1.02 [facility] Comment on above: The validity of the calculated GFR & GFRAA in patients over 70 years has not been determined. Clinical correlation is essential. Serum or plasma urea nitroge n measurement (mass/volume)Ordered By: Jennifer Davila on 08-23-2023 Urea nitrogen [Mass/Vol] 10 mg/dL 7-18 [facility] Squamous epithelial cells de tection in urine sediment by light microscopyOrdered By: Jennifer Davila on 08-23-2023 Epithelial cells.squamous LM Ql (Urine sed) 0-5 SEEN /hpf 5-10 [facility] Thin prep Papanicolaou smear with manual screeningOrdered By: Jennifer Davila on 08-23-2023 Thin prep Papanicolaou smear with manual screening 18 U/L 15-37 [facility] Thin prep Papanicolaou smear with manual screening 8 5-15 [facility] Urine blood detectionOrdered By: Jennifer Davila on 08-23-2023 RBC Ql (U) Negative Negative [facility] RBC Ql (U) 0 SEEN /hpf 0-5 [facility] Urine clarityOrdered By: Kole Davila on 08-23-2023 Clarity (U) Clear Clear [facility] Urine color determinationOrd ered By: Jennifer Davila on 08-23-2023 Color (U) Yellow Yellow [facility] Urine glucose detectionOrder ed By: Jennifer Davila on 08-23-2023 Glucose Ql (U) 1000 mg/dl Normal [facility] Urine leukocyte esterase det ection by dipstickOrdered By: Jennifer Davila on 08-23-2023 Leukocyte esterase Test strip Ql (U) Negative Negative [facility] Urine pHOrdered By: Suha Davila on 08-23-2023 pH (U) 6.0 [pH] 5.0 - 8.0 [facility] Urine sediment bacteria coun t by microscopy (number/high power field)Ordered By: Jennifer Davila on 08-23-2023 Bacteria LM.HPF (Urine sed) [#/Area] 0 /[HPF] None Seen [facility] Urine specific gravity measu rementOrdered By: Jennifer Davila on 08-23-2023 Specific gravity (U) [Rel density] 1.010 1.002-1.030 [facility] Urobilinogen Auto test strip Ql (U)Ordered By: Jennifer Davila on 08-23-2023 Urobilinogen Ql (U) Normal mg/dl Normal [facility] Absolute lymphocyte countOrd ered By: Caprice Jerry on 07-29-2023 Lymphocytes Auto (Unsp spec) [#/Vol] 2.24 10*3/uL 0.83-4.51 [facility] Basophil percentageOrdered B y: Caprice Jerry on 07-29-2023 Basophils/100 WBC (Bld) 0.5 % 0-1 [facility] Bilirubin [Mass/Vol] 0.30 mg/dL 0.20-1.00 [facility] Comment on above: For patients on eltr ombopag therapy, use of Dimension [place] TBIL is not recommended. Chloride [Moles/Vol] 102 mmol/L 98-107 [facility] Eosinophils/100 WBC (Bld) 1.6 % 0-5 [facility] Glucose [Mass/Vol] 173 mg/dL 74-106 [facility] Comment on above: Fasting Glucose resu lt greater than or equal to 126 mg/dL suggests DIABETES MELLITUS per A.D.A. criteria. Neutrophils (Bld) [#/Vol] 5.6 10*3/uL 2.0-7.7 [facility] Neutrophils/100 WBC (Bld) 63.7 % 47-70 [facility] Potassium [Moles/Vol] 3.9 mmol/L 3.5-5.1 [facility] Protein [Mass/Vol] 7.3 g/dL 6.4-8.2 [facility] Sodium [Moles/Vol] 135 mmol/L 136-145 [facility] WBC (Bld) [#/Vol] 8.8 10*3/uL 4.4-11.0 [facility] Beta hCG serum qualOrdered B y: Caprice Jerry on 07-29-2023 Beta HCG ( test) Ql Negative [facility] Blood erythrocytes count (nu mber/volume)Ordered By: Caprice Jerry on 07-29-2023 RBC (Bld) [#/Vol] 3.94 10*6/uL 4.2-5.4 [facility] Blood hemoglobin measurement (mass/volume)Ordered By: Caprice Jerry on 07-29-2023 Hemoglobin (Bld) [Mass/Vol] 13.1 g/dL 12.0-15.0 [facility] Blood lymphocytes/100 leukoc ytesOrdered By: Caprice Jerry on 07-29-2023 Lymphocytes/100 WBC (Bld) 25.4 % 19-41 [facility] Blood monocytes/100 leukocyt esOrdered By: Caprice Jerry on 07-29-2023 Monocytes/100 WBC (Bld) 8.5 % 0-10 [facility] Blood platelet mean volumeOr dered By: Caprice Jerry on 07-29-2023 Platelet mean volume (Bld) [Entitic vol] 9.6 fL 6.2-12.0 [facility] Determination of erythrocyte mean corpuscular volume (MCV)Ordered By: Caprice Jerry on 07-29-2023 MCV (RBC) [Entitic vol] 97.7 fL 81-99 [facility] Direct bilirubinOrdered By: Caprice Jerry on 07-29-2023 Bilirubin.direct [Mass/Vol] 0.08 mg/dL 0.00-0.30 [facility] Hematocrit Auto (Bld) [Volum e fraction]Ordered By: Caprice Jerry on 07-29-2023 Hematocrit (Bld) [Volume fraction] 38.5 % 37-47 [facility] Laboratory - Chemistry and C hemistry - challengeOrdered By: Caprice Jerry on 07-29-2023 ALP [Catalytic activity/Vol] 93 U/L 45-117 [facility] ALT [Catalytic activity/Vol] 45 U/L 13-56 [facility] CO2 [Moles/Vol] 26.0 mmol/L 21.0-32.0 [facility] Globulin (S) [Mass/Vol] 3.8 g/dL 2.2-4.2 [facility] Lipase [Catalytic activity/Vol] 32 U/L 13-75 [facility] Comment on above: Please note:LIPASE r evised reference range effective 23. New Lipase methodology. Expected to produce lower values than the previous assay method. NEW Reference Range: 13 - 75 U/L Urea nitrogen/Creatinine [Mass ratio] 12.5 mg/mg 10-20 [facility] Laboratory - Hematology and Cell countsOrdered By: Caprice Jerry on 07-29-2023 Erythrocyte distribution width (RBC) [Entitic vol] 45.1 fL 35.1-43.9 [facility] Erythrocyte distribution width (RBC) [Ratio] 12.7 % 11.6-14.6 [facility] Immature granulocytes/100 WBC (Bld) 0.300 % 0.0-0.9 [facility] Comment on above: IG% - Immature Granu locytes (promyelocytes, myelocytes and metamyelocytes) > 1% indicates that a LEFT SHIFT is Present. MCH (RBC) [Entitic mass] 33.2 pg 27.0-32.0 [facility] Nucleated RBC/100 WBC (Bld) [Ratio] 0 % 0-5 [facility] MCHC Auto (RBC) [Mass/Vol]Or dered By: Caprice Jerry on 07-29-2023 MCHC (RBC) [Mass/Vol] 34.0 g/dL 32-36 [facility] No Panel InformationOrdered By: Caprice Jerry on 07-29-2023 Troponin I High Sensitivity 4 pg/mL 3.0-54.0 [facility] Comment on above: Please Note: New Miri t Units and Gender Specific Reference Ranges. For more information see Policy Stat Procedure [place] High Sensitivity Troponin (TNIH) and attachments. Estimated Creatinine Clearance Calc 68.98 ml/min [facility] Estimated GFR (MDRD) Amer 89 mL/min >60 [facility] Comment on above: GFR Calc Estimated GFR (MDRD) Non-Af Amer 74 mL/min >60 [facility] Comment on above: Non- GFR Calc Platelets bldOrdered By: Leona Jerry on 07-29-2023 Platelets (Bld) [#/Vol] 281 10*3/uL 150-450 [facility] Serum or plasma albumin alphonso urement (mass/volume)Ordered By: Caprice Jerry on 07-29-2023 Albumin [Mass/Vol] 3.5 g/dL 3.2-5.0 [facility] Serum or plasma calcium alphonso urement (mass/volume)Ordered By: Caprice Jerry on 07-29-2023 Calcium [Mass/Vol] 8.5 mg/dL 8.5-10.1 [facility] Serum or plasma creatinine m easurement (mass/volume)Ordered By: Caprice Jerry on 07-29-2023 Creatinine [Mass/Vol] 0.88 mg/dL 0.55-1.02 [facility] Comment on above: The validity of the calculated GFR & GFRAA in patients over 70 years has not been determined. Clinical correlation is essential. Serum or plasma urea nitroge n measurement (mass/volume)Ordered By: Caprice Jerry on 07-29-2023 Urea nitrogen [Mass/Vol] 11 mg/dL 7-18 [facility] Thin prep Papanicolaou smear with manual screeningOrdered By: Caprice Jerry on 07-29-2023 Thin prep Papanicolaou smear with manual screening 24 U/L 15-37 [facility] Thin prep Papanicolaou smear with manual screening 7 5-15 [facility] Absolute lymphocyte countOrd ered By: Milana Garcia on 07-19-2023 Lymphocytes Auto (Unsp spec) [#/Vol] 2.51 10*3/uL 0.83-4.51 [facility] Basophil percentageOrdered B y: Milana Garcia on 07-19-2023 Basophil percentage 3.1 mg/dL 2.5-4.9 [facility] Basophils/100 WBC (Bld) 0.4 % 0-1 [facility] Bilirubin [Mass/Vol] 0.50 mg/dL 0.20-1.00 [facility] Comment on above: For patients on eltr ombopag therapy, use of Dimension [place] TBIL is not recommended. Chloride [Moles/Vol] 106 mmol/L 98-107 [facility] Eosinophils/100 WBC (Bld) 3.2 % 0-5 [facility] Glucose [Mass/Vol] 123 mg/dL 74-106 [facility] Comment on above: Fasting Glucose resu lt from 100 to 125 mg/dL suggests IMPAIRED HOMEOSTASIS per A.D.A. criteria. Neutrophils (Bld) [#/Vol] 3.7 10*3/uL 2.0-7.7 [facility] Neutrophils/100 WBC (Bld) 52.0 % 47-70 [facility] Potassium [Moles/Vol] 3.5 mmol/L 3.5-5.1 [facility] Protein [Mass/Vol] 6.9 g/dL 6.4-8.2 [facility] Sodium [Moles/Vol] 140 mmol/L 136-145 [facility] WBC (Bld) [#/Vol] 7.2 10*3/uL 4.4-11.0 [facility] Blood erythrocytes count (nu mber/volume)Ordered By: Milana Garcia on 07-19-2023 RBC (Bld) [#/Vol] 3.83 10*6/uL 4.2-5.4 [facility] Blood hemoglobin measurement (mass/volume)Ordered By: Milana Garcia on 07-19-2023 Hemoglobin (Bld) [Mass/Vol] 12.3 g/dL 12.0-15.0 [facility] Blood lymphocytes/100 leukoc ytesOrdered By: Milana Garcia on 07-19-2023 Lymphocytes/100 WBC (Bld) 35.1 % 19-41 [facility] Blood monocytes/100 leukocyt esOrdered By: Milana Garcia on 07-19-2023 Monocytes/100 WBC (Bld) 9.0 % 0-10 [facility] Blood platelet mean volumeOr dered By: Milana Garcia on 07-19-2023 Platelet mean volume (Bld) [Entitic vol] 9.6 fL 6.2-12.0 [facility] Determination of erythrocyte mean corpuscular volume (MCV)Ordered By: Milana Garcia on 07-19-2023 MCV (RBC) [Entitic vol] 97.9 fL 81-99 [facility] Hematocrit Auto (Bld) [Volum e fraction]Ordered By: Milana Garcia on 07-19-2023 Hematocrit (Bld) [Volume fraction] 37.5 % 37-47 [facility] Laboratory - Chemistry and C hemistry - challengeOrdered By: Milana Garcia on 07-19-2023 ALP [Catalytic activity/Vol] 68 U/L 45-117 [facility] ALT [Catalytic activity/Vol] 28 U/L 13-56 [facility] CO2 [Moles/Vol] 27.0 mmol/L 21.0-32.0 [facility] Cobalamin (Vitamin B12) [Mass/Vol] 534 pg/mL 211-911 [facility] Globulin (S) [Mass/Vol] 3.6 g/dL 2.2-4.2 [facility] Magnesium [Mass/Vol] 1.6 mg/dL 1.6-2.6 [facility] Urea nitrogen/Creatinine [Mass ratio] 10.4 mg/mg 10-20 [facility] Laboratory - Hematology and Cell countsOrdered By: Milana Garcia on 07-19-2023 Erythrocyte distribution width (RBC) [Entitic vol] 43.8 fL 35.1-43.9 [facility] Erythrocyte distribution width (RBC) [Ratio] 12.3 % 11.6-14.6 [facility] Immature granulocytes/100 WBC (Bld) 0.300 % 0.0-0.9 [facility] Comment on above: IG% - Immature Granu locytes (promyelocytes, myelocytes and metamyelocytes) > 1% indicates that a LEFT SHIFT is Present. MCH (RBC) [Entitic mass] 32.1 pg 27.0-32.0 [facility] Nucleated RBC/100 WBC (Bld) [Ratio] 0 % 0-5 [facility] MCHC Auto (RBC) [Mass/Vol]Or dered By: Milana Garcia on 07-19-2023 MCHC (RBC) [Mass/Vol] 32.8 g/dL 32-36 [facility] No Panel InformationOrdered By: Milana Garcia on 07-19-2023 Estimated GFR (MDRD) Amer 121 mL/min >60 [facility] Comment on above: GFR Calc Estimated GFR (MDRD) Non-Af Amer 100 mL/min >60 [facility] Comment on above: Non- GFR Calc Thyroid Stimulating Hormone (TSH) 1.07 uIU/mL 0.358-3.74 [facility] Platelets bldOrdered By: Yamel Garica on 07-19-2023 Platelets (Bld) [#/Vol] 245 10*3/uL 150-450 [facility] Serum or plasma albumin alphonso urement (mass/volume)Ordered By: Milana Garcia on 07-19-2023 Albumin [Mass/Vol] 3.3 g/dL 3.2-5.0 [facility] Serum or plasma albumin/glob ulin mass ratioOrdered By: Milana Garcia on 07-19-2023 Albumin/Globulin [Mass ratio] 0.9 {ratio} 0.9-2.4 [facility] Serum or plasma calcium alphonso urement (mass/volume)Ordered By: Milana Garcia on 07-19-2023 Calcium [Mass/Vol] 8.4 mg/dL 8.5-10.1 [facility] Serum or plasma creatinine m easurement (mass/volume)Ordered By: Milana Garcia on 07-19-2023 Creatinine [Mass/Vol] 0.68 mg/dL 0.55-1.02 [facility] Comment on above: The validity of the calculated GFR & GFRAA in patients over 70 years has not been determined. Clinical correlation is essential. Serum or plasma folate measu rement (mass/volume)Ordered By: Milana Garcia on 07-19-2023 Folate [Mass/Vol] 58.30 ng/mL 3.1-55.4 [facility] Serum or plasma urea nitroge n measurement (mass/volume)Ordered By: Milana Garcia on 07-19-2023 Urea nitrogen [Mass/Vol] 7 mg/dL 7-18 [facility] Thin prep Papanicolaou smear with manual screeningOrdered By: Milana Garcia on 07-19-2023 Thin prep Papanicolaou smear with manual screening 19 U/L 15-37 [facility] Thin prep Papanicolaou smear with manual screening 7 5-15 [facility] No Panel InformationOrdered By: Dr. Jerry on 05-25-2023 Troponin I High Sensitivity 3 pg/mL 3.0-54.0 [facility] Comment on above: Please Note: New [place]i t Units and Gender Specific Reference Ranges. For more information see Policy Stat Procedure [place] High Sensitivity Troponin (TNIH) and attachments. Absolute lymphocyte countOrd ered By: Dr. Jerry on 05-24-2023 Lymphocytes Auto (Unsp spec) [#/Vol] 3.25 10*3/uL 0.83-4.51 [facility] Basophil percentageOrdered B y: Dr. Jerry on 05-24-2023 Basophil percentage 0 SEEN /hpf 0-5 [facility] Basophils/100 WBC (Bld) 0.7 % 0-1 [facility] Bilirubin [Mass/Vol] 0.20 mg/dL 0.20-1.00 [facility] Comment on above: For patients on eltr ombopag therapy, use of Dimension [place] TBIL is not recommended. Chloride [Moles/Vol] 112 mmol/L 98-107 [facility] Eosinophils/100 WBC (Bld) 2.2 % 0-5 [facility] Glucose [Mass/Vol] 127 mg/dL 74-106 [facility] Comment on above: Fasting Glucose resu lt greater than or equal to 126 mg/dL suggests DIABETES MELLITUS per A.D.A. criteria. Neutrophils (Bld) [#/Vol] 2.9 10*3/uL 2.0-7.7 [facility] Neutrophils/100 WBC (Bld) 40.3 % 47-70 [facility] Potassium [Moles/Vol] 5.9 mmol/L 3.5-5.1 [facility] Comment on above: Moderate Hemolysis, Result may be falsely increased. Protein [Mass/Vol] 6.7 g/dL 6.4-8.2 [facility] Sodium [Moles/Vol] 138 mmol/L 136-145 [facility] WBC (Bld) [#/Vol] 7.2 10*3/uL 4.4-11.0 [facility] Beta hCG serum qualOrdered B y: Dr. Jerry on 05-24-2023 Beta HCG ( test) Ql Negative [facility] Bilirubin Test strip Ql (U)O rdered By: Dr. Jerry on 05-24-2023 Bilirubin Ql (U) Negative Negative [facility] Blood erythrocytes count (nu mber/volume)Ordered By: Dr. Jerry on 05-24-2023 RBC (Bld) [#/Vol] 3.88 10*6/uL 4.2-5.4 [facility] Blood hemoglobin measurement (mass/volume)Ordered By: Dr. Jerry on 05-24-2023 Hemoglobin (Bld) [Mass/Vol] 12.9 g/dL 12.0-15.0 [facility] Blood lymphocytes/100 leukoc ytesOrdered By: Dr. Jerry on 05-24-2023 Lymphocytes/100 WBC (Bld) 45.0 % 19-41 [facility] Blood monocytes/100 leukocyt esOrdered By: Dr. Jerry on 05-24-2023 Monocytes/100 WBC (Bld) 11.4 % 0-10 [facility] Blood platelet mean volumeOr dered By: Dr. Jerry on 05-24-2023 Platelet mean volume (Bld) [Entitic vol] 9.8 fL 6.2-12.0 [facility] Determination of erythrocyte mean corpuscular volume (MCV)Ordered By: Dr. Jerry on 05-24-2023 MCV (RBC) [Entitic vol] 100.0 fL 81-99 [facility] Direct bilirubinOrdered By: Dr. Jerry on 05-24-2023 Bilirubin.direct [Mass/Vol] mg/dL 0.00-0.30 [facility] Hematocrit Auto (Bld) [Volum e fraction]Ordered By: Dr. Jerry on 05-24-2023 Hematocrit (Bld) [Volume fraction] 38.8 % 37-47 [facility] Ketones Test strip Ql (U)Ord ered By: Dr. Jerry on 05-24-2023 Ketones Ql (U) Negative Negative [facility] Laboratory - Chemistry and C hemistry - challengeOrdered By: Dr. Jerry on 05-24-2023 ALP [Catalytic activity/Vol] 57 U/L 45-117 [facility] ALT [Catalytic activity/Vol] 27 U/L 13-56 [facility] CO2 [Moles/Vol] 19.0 mmol/L 21.0-32.0 [facility] Globulin (S) [Mass/Vol] 3.8 g/dL 2.2-4.2 [facility] Lipase [Catalytic activity/Vol] 64 U/L 13-75 [facility] Comment on above: Please note:LIPASE r evised reference range effective 23. New Lipase methodology. Expected to produce lower values than the previous assay method. NEW Reference Range: 13 - 75 U/L Urea nitrogen/Creatinine [Mass ratio] 9.1 mg/mg 10-20 [facility] Laboratory - Hematology and Cell countsOrdered By: Dr. Jerry on 05-24-2023 Erythrocyte distribution width (RBC) [Entitic vol] 46.2 fL 35.1-43.9 [facility] Erythrocyte distribution width (RBC) [Ratio] 12.6 % 11.6-14.6 [facility] Immature granulocytes/100 WBC (Bld) 0.400 % 0.0-0.9 [facility] Comment on above: IG% - Immature Granu locytes (promyelocytes, myelocytes and metamyelocytes) > 1% indicates that a LEFT SHIFT is Present. MCH (RBC) [Entitic mass] 33.2 pg 27.0-32.0 [facility] Nucleated RBC/100 WBC (Bld) [Ratio] 0 % 0-5 [facility] MCHC Auto (RBC) [Mass/Vol]Or dered By: Dr. Jerry on 05-24-2023 MCHC (RBC) [Mass/Vol] 33.2 g/dL 32-36 [facility] Mucus LM Ql (Urine sed)Order ed By: Dr. Jerry on 05-24-2023 Mucus Ql (Urine sed) 0 SEEN /hpf [facility] Nitrite Test strip Ql (U)Ord ered By: Dr. Jerry on 05-24-2023 Nitrite Ql (U) Negative Negative [facility] No Panel InformationOrdered By: Dr. Jerry on 05-24-2023 Estimated Creatinine Clearance Calc 45.99 ml/min [facility] Estimated GFR (MDRD) Amer 56 mL/min >60 [facility] Comment on above: GFR Calc Estimated GFR (MDRD) Non-Af Amer 46 mL/min >60 [facility] Comment on above: Non- GFR Calc Ethyl Alcohol Level 193.0 mg/dL [facility] Comment on above: The serum:whole bloo d ethanol ratio is approximately 1.14and varies slightly with hematocrit. Medical Alcohol reference interval and critical value innon-tolerant individuals; 50 - 100 Impairment 100 Intoxication 100 - 250 Severe Poisoning 250 - 400 Deep/possible fatal coma Platelets bldOrdered By: Dr. Jerry on 05-24-2023 Platelets (Bld) [#/Vol] 276 10*3/uL 150-450 [facility] Protein Test strip Ql (U)Ord ered By: Dr. Jerry on 05-24-2023 Protein Ql (U) Negative Negative [facility] Serum or plasma acetone alphonso urement (mass/volume)Ordered By: Dr. Jerry on 05-24-2023 Acetone [Mass/Vol] Negative NEG [facility] Serum or plasma albumin alphonso urement (mass/volume)Ordered By: Dr. Jerry on 05-24-2023 Albumin [Mass/Vol] 2.9 g/dL 3.2-5.0 [facility] Serum or plasma calcium alphonso urement (mass/volume)Ordered By: Dr. Jerry on 05-24-2023 Calcium [Mass/Vol] 7.5 mg/dL 8.5-10.1 [facility] Serum or plasma creatinine m easurement (mass/volume)Ordered By: Dr. Jerry on 05-24-2023 Creatinine [Mass/Vol] 1.32 mg/dL 0.55-1.02 [facility] Comment on above: The validity of the calculated GFR & GFRAA in patients over 70 years has not been determined. Clinical correlation is essential. Serum or plasma urea nitroge n measurement (mass/volume)Ordered By: Dr. Jerry on 05-24-2023 Urea nitrogen [Mass/Vol] 12 mg/dL 7-18 [facility] Squamous epithelial cells de tection in urine sediment by light microscopyOrdered By: Dr. Jerry on 05-24-2023 Epithelial cells.squamous LM Ql (Urine sed) 0 SEEN /hpf 5-10 [facility] Thin prep Papanicolaou smear with manual screeningOrdered By: Dr. Jerry on 05-24-2023 Thin prep Papanicolaou smear with manual screening 47 U/L 15-37 [facility] Comment on above: Moderate Hemolysis, Result may be falsely increased. Thin prep Papanicolaou smear with manual screening 7 5-15 [facility] Urine blood detectionOrdered By: Dr. Jerry on 05-24-2023 RBC Ql (U) Negative Negative [facility] RBC Ql (U) 0 SEEN /hpf 0-5 [facility] Urine clarityOrdered By: Dr. Jerry on 05-24-2023 Clarity (U) Clear Clear [facility] Urine color determinationOrd ered By: Dr. Jerry on 05-24-2023 Color (U) Yellow Yellow [facility] Urine glucose detectionOrder ed By: Dr. Jerry on 05-24-2023 Glucose Ql (U) 1000 mg/dl Normal [facility] Urine leukocyte esterase det ection by dipstickOrdered By: Dr. Jerry on 05-24-2023 Leukocyte esterase Test strip Ql (U) Negative Negative [facility] Urine pHOrdered By: Dr. Maximiliano morris on 05-24-2023 pH (U) 6.5 [pH] 5.0 - 8.0 [facility] Urine sediment bacteria coun t by microscopy (number/high power field)Ordered By: Dr. Jerry on 05-24-2023 Bacteria LM.HPF (Urine sed) [#/Area] 0 /[HPF] None Seen [facility] Urine specific gravity measu rementOrdered By: Dr. Jerry on 05-24-2023 Specific gravity (U) [Rel density] 1.005 1.002-1.030 [facility] Urobilinogen Auto test strip Ql (U)Ordered By: Dr. Jerry on 05-24-2023 Urobilinogen Ql (U) Normal mg/dl Normal [facility] Basophil percentageOrdered B y: Milana Garcia on 05-19-2023 Basophil percentage 2.6 mg/dL 2.5-4.9 [facility] Bilirubin [Mass/Vol] 0.30 mg/dL 0.20-1.00 [facility] Comment on above: For patients on eltr ombopag therapy, use of Dimension [place] TBIL is not recommended. Protein [Mass/Vol] 7.2 g/dL 6.4-8.2 [facility] Direct bilirubinOrdered By: Milana Garcia on 05-19-2023 Bilirubin.direct [Mass/Vol] 0.11 mg/dL 0.00-0.30 [facility] Laboratory - Chemistry and C hemistry - challengeOrdered By: Milana Garcia on 05-19-2023 ALP [Catalytic activity/Vol] 69 U/L 45-117 [facility] ALT [Catalytic activity/Vol] 22 U/L 13-56 [facility] Cobalamin (Vitamin B12) [Mass/Vol] 361 pg/mL 211-911 [facility] Free T4 [Mass/Vol] 0.78 ng/dL 0.76-1.46 [facility] Globulin (S) [Mass/Vol] 3.8 g/dL 2.2-4.2 [facility] Magnesium [Mass/Vol] 1.8 mg/dL 1.6-2.6 [facility] No Panel InformationOrdered By: Milana Garcia on 05-19-2023 Thyroid Stimulating Hormone (TSH) 1.95 uIU/mL 0.358-3.74 [facility] Serum or plasma albumin alphonso urement (mass/volume)Ordered By: Milana Garcia on 05-19-2023 Albumin [Mass/Vol] 3.4 g/dL 3.2-5.0 [facility] Serum or plasma ferritin alexis surement (mass/volume)Ordered By: Milana Garcia on 05-19-2023 Ferritin [Mass/Vol] 69 ng/mL 8-252 [facility] Serum or plasma folate measu rement (mass/volume)Ordered By: Milana Garcia on 05-19-2023 Folate [Mass/Vol] 4.00 ng/mL 3.1-55.4 [facility] Thin prep Papanicolaou smear with manual screeningOrdered By: Milana Garcia on 05-19-2023 Thin prep Papanicolaou smear with manual screening 18 U/L 15-37 [facility] No Panel InformationOrdered By: Dr. Dyer on 05-05-2023 Troponin I High Sensitivity < 3 pg/mL 3.0-54.0 [facility] Comment on above: Please Note: New Miri t Units and Gender Specific Reference Ranges. For more information see Policy Stat Procedure [place] High Sensitivity Troponin (TNIH) and attachments. Absolute lymphocyte countOrd ered By: Dr. Dyer on 05-04-2023 Lymphocytes Auto (Unsp spec) [#/Vol] 3.17 10*3/uL 0.83-4.51 [facility] Basophil percentageOrdered B y: Dr. Dyer on 05-04-2023 Basophils/100 WBC (Bld) 0.4 % 0-1 [facility] Chloride [Moles/Vol] 105 mmol/L 98-107 [facility] Eosinophils/100 WBC (Bld) 2.7 % 0-5 [facility] Glucose [Mass/Vol] 103 mg/dL 74-106 [facility] Comment on above: Fasting Glucose resu lt from 100 to 125 mg/dL suggests IMPAIRED HOMEOSTASIS per A.D.A. criteria. Neutrophils (Bld) [#/Vol] 4.6 10*3/uL 2.0-7.7 [facility] Neutrophils/100 WBC (Bld) 51.3 % 47-70 [facility] Potassium [Moles/Vol] 3.4 mmol/L 3.5-5.1 [facility] Sodium [Moles/Vol] 138 mmol/L 136-145 [facility] WBC (Bld) [#/Vol] 8.9 10*3/uL 4.4-11.0 [facility] Blood erythrocytes count (nu mber/volume)Ordered By: Dr. Dyer on 05-04-2023 RBC (Bld) [#/Vol] 3.72 10*6/uL 4.2-5.4 [facility] Blood hemoglobin measurement (mass/volume)Ordered By: Dr. Dyer on 05-04-2023 Hemoglobin (Bld) [Mass/Vol] 12.1 g/dL 12.0-15.0 [facility] Blood lymphocytes/100 leukoc ytesOrdered By: Dr. Dyer on 05-04-2023 Lymphocytes/100 WBC (Bld) 35.6 % 19-41 [facility] Blood monocytes/100 leukocyt esOrdered By: Dr. Dyer on 05-04-2023 Monocytes/100 WBC (Bld) 9.4 % 0-10 [facility] Blood platelet mean volumeOr dered By: Dr. Dyer on 05-04-2023 Platelet mean volume (Bld) [Entitic vol] 9.4 fL 6.2-12.0 [facility] Determination of erythrocyte mean corpuscular volume (MCV)Ordered By: Dr. Dyer on 05-04-2023 MCV (RBC) [Entitic vol] 98.4 fL 81-99 [facility] Hematocrit Auto (Bld) [Volum e fraction]Ordered By: Dr. Dyer on 05-04-2023 Hematocrit (Bld) [Volume fraction] 36.6 % 37-47 [facility] Laboratory - Chemistry and C hemistry - challengeOrdered By: Dr. Dyer on 05-04-2023 CO2 [Moles/Vol] 27.0 mmol/L 21.0-32.0 [facility] Urea nitrogen/Creatinine [Mass ratio] 19.2 mg/mg 10-20 [facility] - Hematology and Cell countsOrdered By: Dr. Dyer on 05-04-2023 Erythrocyte distribution width (RBC) [Entitic vol] 47.8 fL 35.1-43.9 [facility] Erythrocyte distribution width (RBC) [Ratio] 13.3 % 11.6-14.6 [facility] Immature granulocytes/100 WBC (Bld) 0.600 % 0.0-0.9 [facility] Comment on above: IG% - Immature Granu locytes (promyelocytes, myelocytes and metamyelocytes) > 1% indicates that a LEFT SHIFT is Present. MCH (RBC) [Entitic mass] 32.5 pg 27.0-32.0 [facility] Nucleated RBC/100 WBC (Bld) [Ratio] 0 % 0-5 [facility] MCHC Auto (RBC) [Mass/Vol]Or dered By: Dr. Dyer on 05-04-2023 MCHC (RBC) [Mass/Vol] 33.1 g/dL 32-36 [facility] No Panel InformationOrdered By: Dr. Dyer on 05-04-2023 Estimated Creatinine Clearance Calc 83.15 ml/min [facility] Estimated GFR (MDRD) Amer 110 mL/min >60 [facility] Comment on above: GFR Calc Estimated GFR (MDRD) Non-Af Amer 91 mL/min >60 [facility] Comment on above: Non- GFR Calc Platelets bldOrdered By: Dr. Dyer on 05-04-2023 Platelets (Bld) [#/Vol] 274 10*3/uL 150-450 [facility] Serum or plasma calcium alphonso urement (mass/volume)Ordered By: Dr. Dyer on 05-04-2023 Calcium [Mass/Vol] 8.6 mg/dL 8.5-10.1 [facility] Serum or plasma creatinine m easurement (mass/volume)Ordered By: Dr. Dyer on 05-04-2023 Creatinine [Mass/Vol] 0.73 mg/dL 0.55-1.02 [facility] Comment on above: The validity of the calculated GFR & GFRAA in patients over 70 years has not been determined. Clinical correlation is essential. Serum or plasma urea nitroge n measurement (mass/volume)Ordered By: Dr. Dyer on 05-04-2023 Urea nitrogen [Mass/Vol] 14 mg/dL 7-18 [facility] Thin prep Papanicolaou smear with manual screeningOrdered By: Dr. Dyer on 05-04-2023 Thin prep Papanicolaou smear with manual screening 6 5-15 [facility] - Microbiology an d Antimicrobial susceptibilityOrdered By: Dr. Jacobs on 04-15-2023 Bacteria identified Cx Nom (Bld) No growth in 5 days. [facility] Absolute lymphocyte countOrd ered By: Dr. Kiran on 04-11-2023 Lymphocytes Auto (Unsp spec) [#/Vol] 2.75 10*3/uL 0.83-4.51 [facility] Basophil percentageOrdered B y: Dr. Kiran on 04-11-2023 Basophils/100 WBC (Bld) 0.3 % 0-1 [facility] Chloride [Moles/Vol] 105 mmol/L 98-107 [facility] Eosinophils/100 WBC (Bld) 0.7 % 0-5 [facility] Glucose [Mass/Vol] 143 mg/dL 74-106 [facility] Comment on above: Fasting Glucose resu lt greater than or equal to 126 mg/dL suggests DIABETES MELLITUS per A.D.A. criteria. Neutrophils (Bld) [#/Vol] 7.8 10*3/uL 2.0-7.7 [facility] Neutrophils/100 WBC (Bld) 67.1 % 47-70 [facility] Potassium [Moles/Vol] 4.1 mmol/L 3.5-5.1 [facility] Sodium [Moles/Vol] 137 mmol/L 136-145 [facility] WBC (Bld) [#/Vol] 11.6 10*3/uL 4.4-11.0 [facility] Basophil percentageOrdered B y: Dr. Johnson on 04-11-2023 Lactate [Moles/Vol] 0.6 mmol/L 0.4-2.0 [facility] Blood erythrocytes count (nu mber/volume)Ordered By: Dr. Kiran on 04-11-2023 RBC (Bld) [#/Vol] 3.87 10*6/uL 4.2-5.4 [facility] Blood hemoglobin measurement (mass/volume)Ordered By: Dr. Kiran on 04-11-2023 Hemoglobin (Bld) [Mass/Vol] 12.6 g/dL 12.0-15.0 [facility] Blood lymphocytes/100 leukoc ytesOrdered By: Dr. Kiran on 04-11-2023 Lymphocytes/100 WBC (Bld) 23.8 % 19-41 [facility] Blood monocytes/100 leukocyt esOrdered By: Dr. Kiran on 04-11-2023 Monocytes/100 WBC (Bld) 7.8 % 0-10 [facility] Blood platelet mean volumeOr dered By: Dr. Kiran on 04-11-2023 Platelet mean volume (Bld) [Entitic vol] 9.7 fL 6.2-12.0 [facility] Determination of erythrocyte mean corpuscular volume (MCV)Ordered By: Dr. Kiran on 04-11-2023 MCV (RBC) [Entitic vol] 100.5 fL 81-99 [facility] Glucose Glucometer (BldC) [M ass/Vol]Ordered By: Dr. Johnson on 04-11-2023 Glucose [Mass/Vol] 95 mg/dL 74-106 [facility] Comment on above: MANAGEMENT OF PATIEN T CARE PER NURSING PROTOCOL Hematocrit Auto (Bld) [Volum e fraction]Ordered By: Dr. Kiran on 04-11-2023 Hematocrit (Bld) [Volume fraction] 38.9 % 37-47 [facility] - Chemistry and C hemistry - challengeOrdered By: Dr. Kiran on 04-11-2023 CO2 [Moles/Vol] 24.0 mmol/L 21.0-32.0 [facility] Urea nitrogen/Creatinine [Mass ratio] 23.2 mg/mg 10-20 [facility] - Hematology and Cell countsOrdered By: Dr. Kiran on 04-11-2023 Erythrocyte distribution width (RBC) [Entitic vol] 47.8 fL 35.1-43.9 [facility] Erythrocyte distribution width (RBC) [Ratio] 13.1 % 11.6-14.6 [facility] Immature granulocytes/100 WBC (Bld) 0.300 % 0.0-0.9 [facility] Comment on above: IG% - Immature Granu locytes (promyelocytes, myelocytes and metamyelocytes) > 1% indicates that a LEFT SHIFT is Present. MCH (RBC) [Entitic mass] 32.6 pg 27.0-32.0 [facility] Nucleated RBC/100 WBC (Bld) [Ratio] 0 % 0-5 [facility] MCHC Auto (RBC) [Mass/Vol]Or dered By: Dr. Kiran on 04-11-2023 MCHC (RBC) [Mass/Vol] 32.4 g/dL 32-36 [facility] No Panel InformationOrdered By: Dr. Kiran on 04-11-2023 Estimated Creatinine Clearance Calc 74.03 ml/min [facility] Estimated GFR (MDRD) Amer 97 mL/min >60 [facility] Comment on above: GFR Calc Estimated GFR (MDRD) Non-Af Amer 80 mL/min >60 [facility] Comment on above: Non- GFR Calc Platelets bldOrdered By: Dr. Kiran on 04-11-2023 Platelets (Bld) [#/Vol] 246 10*3/uL 150-450 [facility] Serum or plasma calcium alphonso urement (mass/volume)Ordered By: Dr. Kiran on 04-11-2023 Calcium [Mass/Vol] 8.8 mg/dL 8.5-10.1 [facility] Serum or plasma creatinine m easurement (mass/volume)Ordered By: Dr. Kiran on 04-11-2023 Creatinine [Mass/Vol] 0.82 mg/dL 0.55-1.02 [facility] Comment on above: The validity of the calculated GFR & GFRAA in patients over 70 years has not been determined. Clinical correlation is essential. Serum or plasma urea nitroge n measurement (mass/volume)Ordered By: Dr. Kiran on 04-11-2023 Urea nitrogen [Mass/Vol] 19 mg/dL 7-18 [facility] Thin prep Papanicolaou smear with manual screeningOrdered By: Dr. Kiran on 04-11-2023 Thin prep Papanicolaou smear with manual screening 8 5-15 [facility] Basophil percentageOrdered B y: Dr. Jacobs on 04-10-2023 Chloride [Moles/Vol] 110 mmol/L 98-107 [facility] Glucose [Mass/Vol] 160 mg/dL 74-106 [facility] Comment on above: Fasting Glucose resu lt greater than or equal to 126 mg/dL suggests DIABETES MELLITUS per A.D.A. criteria. Lactate [Moles/Vol] 4.2 mmol/L 0.4-2.0 [facility] Comment on above: Critical Result(s) C alled at: 02:41:04 04/10/2023 by: Campos [employer]. Results read back by same. Potassium [Moles/Vol] 4.8 mmol/L 3.5-5.1 [facility] Sodium [Moles/Vol] 140 mmol/L 136-145 [facility] Basophil percentage 0 SEEN /hpf 0-5 [facility] Bilirubin Test strip Ql (U)O rdered By: Dr. Jacobs on 04-10-2023 Bilirubin Ql (U) Negative Negative [facility] HCO3 (BldA) [Moles/Vol]Order ed By: Dr. Jacobs on 04-10-2023 HCO3 (Bld) [Moles/Vol] 20 mmol/L 22-26 [facility] Ketones Test strip Ql (U)Ord ered By: Dr. Jacobs on 04-10-2023 Ketones Ql (U) Negative Negative [facility] - Chemistry and C hemistry - challengeOrdered By: Dr. Jacobs on 04-10-2023 CO2 [Moles/Vol] 19.0 mmol/L 21.0-32.0 [facility] Urea nitrogen/Creatinine [Mass ratio] 15.8 mg/mg 10-20 [facility] CO2 [Moles/Vol] 21 mmol/L 23-33 [facility] - Microbiology an d Antimicrobial susceptibilityOrdered By: David Jacobs on 04-10-2023 Bacteria identified Cx Nom (Bld) No growth in 5 days. [facility] Mucus LM Ql (Urine sed)Order ed By: Dr. Jacobs on 04-10-2023 Mucus Ql (Urine sed) 0 SEEN /hpf [facility] Nitrite Test strip Ql (U)Ord ered By: Dr. Jacobs on 04-10-2023 Nitrite Ql (U) Negative Negative [facility] No Panel InformationOrdered By: Dr. Jacobs on 04-10-2023 Estimated Creatinine Clearance Calc 60.10 ml/min [facility] Estimated GFR (MDRD) Amer 76 mL/min >60 [facility] Comment on above: GFR Calc Estimated GFR (MDRD) Non-Af Amer 63 mL/min >60 [facility] Comment on above: Non- GFR Calc Troponin I High Sensitivity < 3 pg/mL 3.0-54.0 [facility] Comment on above: Please Note: [place] t Units and Gender Specific Reference Ranges. For more information see Policy Stat Procedure [place] High Sensitivity Troponin (TNIH) and attachments. Bed Mix Venous Bld PCO2 at Pat Temp 40.5 mmHg 41-51 [facility] Blood Gas Specimen Type GELACIO [facility] Oxygen Delivery Device Room Air [facility] Venous Blood Base Excess -7 mmol/L -1.0-3.5 [facility] No Panel InformationOrdered By: Dr. Kiran on 04-10-2023 Troponin I High Sensitivity < 3 pg/mL 3.0-54.0 [facility] Comment on above: Please Note: [place] t Units and Gender Specific Reference Ranges. For more information see Policy Stat Procedure [place] High Sensitivity Troponin (TNIH) and attachments. PO2 venousOrdered By: Dr. Jose wood on 04-10-2023 Oxygen (BldV) [Partial pressure] 54 mm[Hg] 25-40 [facility] Protein Test strip Ql (U)Ord ered By: Dr. Jacobs on 04-10-2023 Protein Ql (U) Negative Negative [facility] Serum or plasma acetone alphonso urement (mass/volume)Ordered By: Dr. Jacobs on 04-10-2023 Acetone [Mass/Vol] Negative NEG [facility] Serum or plasma calcium alphonso urement (mass/volume)Ordered By: Dr. Jacobs on 04-10-2023 Calcium [Mass/Vol] 7.3 mg/dL 8.5-10.1 [facility] Serum or plasma creatinine m easurement (mass/volume)Ordered By: Dr. Jacobs on 04-10-2023 Creatinine [Mass/Vol] 1.01 mg/dL 0.55-1.02 [facility] Comment on above: The validity of the calculated GFR & GFRAA in patients over 70 years has not been determined. Clinical correlation is essential. Serum or plasma urea nitroge n measurement (mass/volume)Ordered By: Dr. Jacobs on 04-10-2023 Urea nitrogen [Mass/Vol] 16 mg/dL 7-18 [facility] Squamous epithelial cells de tection in urine sediment by light microscopyOrdered By: Dr. Jacobs on 04-10-2023 Epithelial cells.squamous LM Ql (Urine sed) 0 SEEN /hpf 5-10 [facility] Thin prep Papanicolaou smear with manual screeningOrdered By: Dr. Jacobs on 04-10-2023 Thin prep Papanicolaou smear with manual screening 11 -15 [facility] Urine blood detectionOrdered By: Dr. Jacobs on 04-10-2023 RBC Ql (U) Negative Negative [facility] RBC Ql (U) 0 SEEN /hpf 0-5 [facility] Urine clarityOrdered By: Dr. Jacobs on 04-10-2023 Clarity (U) Clear Clear [facility] Urine color determinationOrd ered By: Dr. Jacobs on 04-10-2023 Color (U) Yellow Yellow [facility] Urine glucose detectionOrder ed By: Dr. Jacobs on 04-10-2023 Glucose Ql (U) 1000 mg/dl Normal [facility] Urine leukocyte esterase det ection by dipstickOrdered By: Dr. Jacobs on 04-10-2023 Leukocyte esterase Test strip Ql (U) Negative Negative [facility] Urine pHOrdered By: Dr. Caren garza on 04-10-2023 pH (U) 6.5 [pH] 5.0 - 8.0 [facility] Urine sediment bacteria coun t by microscopy (number/high power field)Ordered By: Dr. Jacobs on 04-10-2023 Bacteria LM.HPF (Urine sed) [#/Area] 0 /[HPF] None Seen [facility] Urine specific gravity measu rementOrdered By: Dr. Jacobs on 04-10-2023 Specific gravity (U) [Rel density] 1.010 1.002-1.030 [facility] Urobilinogen Auto test strip Ql (U)Ordered By: Dr. Jacobs on 04-10-2023 Urobilinogen Ql (U) Normal mg/dl Normal [facility] Vital signsOrdered By: Dr. Del mackay on 04-10-2023 Oxygen saturation in Blood 84 % 50-70 [facility] pH measurementOrdered By: Dr Jael Jacobs on 04-10-2023 pH (Unsp spec) 7.29 [pH] 7.32-7.42 [facility] Absolute lymphocyte countOrd ered By: Dr. Jacobs on 04-09-2023 Lymphocytes Auto (Unsp spec) [#/Vol] 0.91 10*3/uL 0.83-4.51 [facility] Basophil percentageOrdered B y: Dr. Jacobs on 04-09-2023 Basophils/100 WBC (Bld) 0.2 % 0-1 [facility] Eosinophils/100 WBC (Bld) 0.4 % 0-5 [facility] Neutrophils (Bld) [#/Vol] 6.8 10*3/uL 2.0-7.7 [facility] Neutrophils/100 WBC (Bld) 85.1 % 47-70 [facility] WBC (Bld) [#/Vol] 8.0 10*3/uL 4.4-11.0 [facility] Blood erythrocytes count (nu mber/volume)Ordered By: Dr. Jacobs on 04-09-2023 RBC (Bld) [#/Vol] 3.87 10*6/uL 4.2-5.4 [facility] Blood hemoglobin measurement (mass/volume)Ordered By: Dr. Jacobs on 04-09-2023 Hemoglobin (Bld) [Mass/Vol] 12.5 g/dL 12.0-15.0 [facility] Blood lymphocytes/100 leukoc ytesOrdered By: Dr. Jacobs on 04-09-2023 Lymphocytes/100 WBC (Bld) 11.3 % 19-41 [facility] Blood monocytes/100 leukocyt esOrdered By: Dr. Jacobs on 04-09-2023 Monocytes/100 WBC (Bld) 1.6 % 0-10 [facility] Blood platelet mean volumeOr dered By: Dr. Jacobs on 04-09-2023 Platelet mean volume (Bld) [Entitic vol] 10.0 fL 6.2-12.0 [facility] Determination of erythrocyte mean corpuscular volume (MCV)Ordered By: Dr. Jacobs on 04-09-2023 MCV (RBC) [Entitic vol] 99.5 fL 81-99 [facility] Hematocrit Auto (Bld) [Volum e fraction]Ordered By: Dr. Jacobs on 04-09-2023 Hematocrit (Bld) [Volume fraction] 38.5 % 37-47 [facility] - Hematology and Cell countsOrdered By: Dr. Jacobs on 04-09-2023 Erythrocyte distribution width (RBC) [Entitic vol] 47.4 fL 35.1-43.9 [facility] Erythrocyte distribution width (RBC) [Ratio] 13.0 % 11.6-14.6 [facility] Immature granulocytes/100 WBC (Bld) 1.400 % 0.0-0.9 [facility] Comment on above: IG% - Immature Granu locytes (promyelocytes, myelocytes and metamyelocytes) > 1% indicates that a LEFT SHIFT is Present. MCH (RBC) [Entitic mass] 32.3 pg 27.0-32.0 [facility] Nucleated RBC/100 WBC (Bld) [Ratio] 0 % 0-5 [facility] MCHC Auto (RBC) [Mass/Vol]Or dered By: Dr. Jacobs on 04-09-2023 MCHC (RBC) [Mass/Vol] 32.5 g/dL 32-36 [facility] No Panel InformationOrdered By: Dr. Jacobs on 04-09-2023 D-Dimer Quantitative (PE/DVT) < 0.27 FEU/ug/m 0.27-0.49 [facility] Comment on above: NORMAL D-Dimer level (<0.50) indicates no DVT or PE. Platelets bldOrdered By: Dr. Jacobs on 04-09-2023 Platelets (Bld) [#/Vol] 298 10*3/uL 150-450 [facility] Absolute lymphocyte countOrd ered By: Dr. Gaviria on 03-22-2023 Lymphocytes Auto (Unsp spec) [#/Vol] 2.49 10*3/uL 0.83-4.51 [facility] Amorphous sediment detection in urine sediment by light microscopyOrdered By: Dr. Gaviria on 03-22-2023 Amorphous sediment LM Ql (Urine sed) 1+ URATE [facility] Basophil percentageOrdered B y: Dr. Gaviria on 03-22-2023 Basophil percentage 5-10 SEEN /hpf 0-5 [facility] Basophils/100 WBC (Bld) 0.5 % 0-1 [facility] Bilirubin [Mass/Vol] 0.30 mg/dL 0.20-1.00 [facility] Comment on above: For patients on eltr ombopag therapy, use of Dimension [place] TBIL is not recommended. Chloride [Moles/Vol] 105 mmol/L 98-107 [facility] Eosinophils/100 WBC (Bld) 2.0 % 0-5 [facility] Glucose [Mass/Vol] 146 mg/dL 74-106 [facility] Comment on above: Fasting Glucose resu lt greater than or equal to 126 mg/dL suggests DIABETES MELLITUS per A.D.A. criteria. Lactate [Moles/Vol] 1.4 mmol/L 0.4-2.0 [facility] Neutrophils (Bld) [#/Vol] 7.1 10*3/uL 2.0-7.7 [facility] Neutrophils/100 WBC (Bld) 64.4 % 47-70 [facility] Potassium [Moles/Vol] 4.4 mmol/L 3.5-5.1 [facility] Protein [Mass/Vol] 7.7 g/dL 6.4-8.2 [facility] Sodium [Moles/Vol] 133 mmol/L 136-145 [facility] WBC (Bld) [#/Vol] 11.0 10*3/uL 4.4-11.0 [facility] Bilirubin Test strip Ql (U)O rdered By: Dr. Gaviria on 03-22-2023 Bilirubin Ql (U) Negative Negative [facility] Blood erythrocytes count (nu mber/volume)Ordered By: Dr. Gaviria on 03-22-2023 RBC (Bld) [#/Vol] 4.25 10*6/uL 4.2-5.4 [facility] Blood hemoglobin measurement (mass/volume)Ordered By: Dr. Gaviria on 03-22-2023 Hemoglobin (Bld) [Mass/Vol] 13.6 g/dL 12.0-15.0 [facility] Blood lymphocytes/100 leukoc ytesOrdered By: Dr. Gaviria on 03-22-2023 Lymphocytes/100 WBC (Bld) 22.7 % 19-41 [facility] Blood monocytes/100 leukocyt esOrdered By: Dr. Gaviria on 03-22-2023 Monocytes/100 WBC (Bld) 9.9 % 0-10 [facility] Blood platelet mean volumeOr dered By: Dr. Gaviria on 03-22-2023 Platelet mean volume (Bld) [Entitic vol] 9.7 fL 6.2-12.0 [facility] Determination of erythrocyte mean corpuscular volume (MCV)Ordered By: Dr. Gaviria on 03-22-2023 MCV (RBC) [Entitic vol] 97.6 fL 81-99 [facility] Hematocrit Auto (Bld) [Volum e fraction]Ordered By: Dr. Gaviria on 03-22-2023 Hematocrit (Bld) [Volume fraction] 41.5 % 37-47 [facility] Ketones Test strip Ql (U)Ord ered By: Dr. Gaviria on 03-22-2023 Ketones Ql (U) Negative Negative [facility] - Chemistry and C hemistry - challengeOrdered By: Dr. Gaviria on 03-22-2023 ALP [Catalytic activity/Vol] 71 U/L 45-117 [facility] ALT [Catalytic activity/Vol] 33 U/L 13-56 [facility] CO2 [Moles/Vol] 24.0 mmol/L 21.0-32.0 [facility] Globulin (S) [Mass/Vol] 3.7 g/dL 2.2-4.2 [facility] Urea nitrogen/Creatinine [Mass ratio] 10.8 mg/mg 10-20 [facility] - Hematology and Cell countsOrdered By: Dr. Gaviria on 03-22-2023 Erythrocyte distribution width (RBC) [Entitic vol] 46.9 fL 35.1-43.9 [facility] Erythrocyte distribution width (RBC) [Ratio] 13.1 % 11.6-14.6 [facility] Immature granulocytes/100 WBC (Bld) 0.500 % 0.0-0.9 [facility] Comment on above: IG% - Immature Granu locytes (promyelocytes, myelocytes and metamyelocytes) > 1% indicates that a LEFT SHIFT is Present. MCH (RBC) [Entitic mass] 32.0 pg 27.0-32.0 [facility] Nucleated RBC/100 WBC (Bld) [Ratio] 0 % 0-5 [facility] MCHC Auto (RBC) [Mass/Vol]Or dered By: Dr. Gaviria on 03-22-2023 MCHC (RBC) [Mass/Vol] 32.8 g/dL 32-36 [facility] Mucus LM Ql (Urine sed)Order ed By: Dr. Gaviria on 03-22-2023 Mucus Ql (Urine sed) 0 SEEN /hpf [facility] Nitrite Test strip Ql (U)Ord ered By: Dr. Gaviria on 03-22-2023 Nitrite Ql (U) Negative Negative [facility] No Panel InformationOrdered By: Dr. Gaviria on 03-22-2023 Estimated Creatinine Clearance Calc 36.74 ml/min [facility] Estimated GFR (MDRD) Amer 43 mL/min >60 [facility] Comment on above: GFR Calc Estimated GFR (MDRD) Non-Af Amer 35 mL/min >60 [facility] Comment on above: Non- GFR Calc Platelets bldOrdered By: Dr. Gaviria on 03-22-2023 Platelets (Bld) [#/Vol] 316 10*3/uL 150-450 [facility] Protein Test strip Ql (U)Ord ered By: Dr. Gaviria on 03-22-2023 Protein Ql (U) Negative Negative [facility] Serum or plasma albumin alphonso urement (mass/volume)Ordered By: Dr. Gaviria on 03-22-2023 Albumin [Mass/Vol] 4.0 g/dL 3.2-5.0 [facility] Serum or plasma albumin/glob ulin mass ratioOrdered By: Dr. Gaviria on 03-22-2023 Albumin/Globulin [Mass ratio] 1.1 {ratio} 0.9-2.4 [facility] Serum or plasma calcium alphonso urement (mass/volume)Ordered By: Dr. Gaviria on 03-22-2023 Calcium [Mass/Vol] 8.9 mg/dL 8.5-10.1 [facility] Serum or plasma creatinine m easurement (mass/volume)Ordered By: Dr. Gaviria on 03-22-2023 Creatinine [Mass/Vol] 1.67 mg/dL 0.55-1.02 [facility] Comment on above: The validity of the calculated GFR & GFRAA in patients over 70 years has not been determined. Clinical correlation is essential. Serum or plasma urea nitroge n measurement (mass/volume)Ordered By: Dr. Gaviria on 03-22-2023 Urea nitrogen [Mass/Vol] 18 mg/dL 7-18 [facility] Squamous epithelial cells de tection in urine sediment by light microscopyOrdered By: Dr. Gaviria on 03-22-2023 Epithelial cells.squamous LM Ql (Urine sed) 0-5 SEEN /hpf 5-10 [facility] Thin prep Papanicolaou smear with manual screeningOrdered By: Dr. Gaviria on 03-22-2023 Thin prep Papanicolaou smear with manual screening 20 U/L 15-37 [facility] Thin prep Papanicolaou smear with manual screening 4 5-15 [facility] Urine blood detectionOrdered By: Dr. Gaviria on 03-22-2023 RBC Ql (U) Negative Negative [facility] RBC Ql (U) 0 SEEN /hpf 0-5 [facility] Urine clarityOrdered By: Dr. Gaviria on 03-22-2023 Clarity (U) Sl. Cloudy Clear [facility] Urine color determinationOrd ered By: Dr. Gaviria on 03-22-2023 Color (U) Yellow Yellow [facility] Urine glucose detectionOrder ed By: Dr. Gaviria on 03-22-2023 Glucose Ql (U) 1000 mg/dl Normal [facility] Urine leukocyte esterase det ection by dipstickOrdered By: Dr. Gaviria on 03-22-2023 Leukocyte esterase Test strip Ql (U) 100 /ul Negative [facility] Urine pHOrdered By: Dr. Shae ruelas on 03-22-2023 pH (U) 6.5 [pH] 5.0 - 8.0 [facility] Urine sediment bacteria coun t by microscopy (number/high power field)Ordered By: Dr. Gaviria on 03-22-2023 Bacteria LM.HPF (Urine sed) [#/Area] 0 /[HPF] None Seen [facility] Urine specific gravity measu rementOrdered By: Dr. Gaviria on 03-22-2023 Specific gravity (U) [Rel density] 1.005 1.002-1.030 [facility] Urobilinogen Auto test strip Ql (U)Ordered By: Dr. Gaviria on 03-22-2023 Urobilinogen Ql (U) Normal mg/dl Normal [facility] - Microbiology an d Antimicrobial susceptibilityon 02-12-2023 SARS-CoV-2 (COVID-19) RNA ALLEY+probe Ql (Unsp spec) Not detected [facility] No Panel Informationon 02-12 Influenza Types A,B Rapid (Clinic) Not detected [facility] Absolute lymphocyte countOrd ered By: Dr. Jacobs on 01-21-2023 Lymphocytes Auto (Unsp spec) [#/Vol] 2.33 10*3/uL 0.83-4.51 [facility] Basophil percentageOrdered B y: Dr. Jacobs on 01-21-2023 Basophils/100 WBC (Bld) 0.5 % 0-1 [facility] Chloride [Moles/Vol] 103 mmol/L 98-107 [facility] Eosinophils/100 WBC (Bld) 2.6 % 0-5 [facility] Glucose [Mass/Vol] 262 mg/dL 74-106 [facility] Comment on above: Glucose result great er than or equal to 200 mg/dLsuggests DIABETES MELLITUS per A.D.A. criteria. Neutrophils (Bld) [#/Vol] 4.7 10*3/uL 2.0-7.7 [facility] Neutrophils/100 WBC (Bld) 59.7 % 47-70 [facility] Potassium [Moles/Vol] 3.6 mmol/L 3.5-5.1 [facility] Sodium [Moles/Vol] 138 mmol/L 136-145 [facility] WBC (Bld) [#/Vol] 7.9 10*3/uL 4.4-11.0 [facility] Blood erythrocytes count (nu mber/volume)Ordered By: Dr. Jacobs on 01-21-2023 RBC (Bld) [#/Vol] 4.32 10*6/uL 4.2-5.4 [facility] Blood hemoglobin measurement (mass/volume)Ordered By: Dr. Jacobs on 01-21-2023 Hemoglobin (Bld) [Mass/Vol] 13.8 g/dL 12.0-15.0 [facility] Blood lymphocytes/100 leukoc ytesOrdered By: Dr. Jacobs on 01-21-2023 Lymphocytes/100 WBC (Bld) 29.3 % 19-41 [facility] Blood monocytes/100 leukocyt esOrdered By: Dr. Jacbos on 01-21-2023 Monocytes/100 WBC (Bld) 7.6 % 0-10 [facility] Blood platelet mean volumeOr dered By: Dr. Jacobs on 01-21-2023 Platelet mean volume (Bld) [Entitic vol] 9.8 fL 6.2-12.0 [facility] Determination of erythrocyte mean corpuscular volume (MCV)Ordered By: Dr. Jacobs on 01-21-2023 MCV (RBC) [Entitic vol] 95.8 fL 81-99 [facility] Hematocrit Auto (Bld) [Volum e fraction]Ordered By: Dr. Jacobs on 01-21-2023 Hematocrit (Bld) [Volume fraction] 41.4 % 37-47 [facility] Laboratory - Chemistry and C hemistry - challengeOrdered By: Dr. Jacobs on 01-21-2023 CO2 [Moles/Vol] 27.0 mmol/L 21.0-32.0 [facility] Urea nitrogen/Creatinine [Mass ratio] 11.8 mg/mg 10-20 [facility] Laboratory - Hematology and Cell countsOrdered By: Dr. Jacobs on 01-21-2023 Erythrocyte distribution width (RBC) [Entitic vol] 44.4 fL 35.1-43.9 [facility] Erythrocyte distribution width (RBC) [Ratio] 12.7 % 11.6-14.6 [facility] Immature granulocytes/100 WBC (Bld) 0.300 % 0.0-0.9 [facility] Comment on above: IG% - Immature Granu locytes (promyelocytes, myelocytes and metamyelocytes) > 1% indicates that a LEFT SHIFT is Present. MCH (RBC) [Entitic mass] 31.9 pg 27.0-32.0 [facility] Nucleated RBC/100 WBC (Bld) [Ratio] 0 % 0-5 [facility] MCHC Auto (RBC) [Mass/Vol]Or dered By: Dr. Jacobs on 01-21-2023 MCHC (RBC) [Mass/Vol] 33.3 g/dL 32-36 [facility] No Panel InformationOrdered By: Dr. Jacobs on 01-21-2023 Troponin I High Sensitivity < 3 pg/mL 3.0-54.0 [facility] Comment on above: Please Note: New [place]i t Units and Gender Specific Reference Ranges. For more information see Policy Stat Procedure [place] High Sensitivity Troponin (TNIH) and attachments. D-Dimer Quantitative (PE/DVT) < 0.27 FEU/ug/m 0.27-0.49 [facility] Comment on above: NORMAL D-Dimer level (<0.50) indicates no DVT or PE. Estimated Creatinine Clearance Calc 65.97 ml/min [facility] Estimated GFR (MDRD) Amer 83 mL/min >60 [facility] Comment on above: GFR Calc Estimated GFR (MDRD) Non-Af Amer 69 mL/min >60 [facility] Comment on above: Non- GFR Calc Platelets bldOrdered By: Dr. Jacobs on 01-21-2023 Platelets (Bld) [#/Vol] 314 10*3/uL 150-450 [facility] Serum or plasma calcium alphonso urement (mass/volume)Ordered By: Dr. Jacobs on 01-21-2023 Calcium [Mass/Vol] 8.9 mg/dL 8.5-10.1 [facility] Serum or plasma creatinine m easurement (mass/volume)Ordered By: Dr. Jacobs on 01-21-2023 Creatinine [Mass/Vol] 0.93 mg/dL 0.55-1.02 [facility] Comment on above: The validity of the calculated GFR & GFRAA in patients over 70 years has not been determined. Clinical correlation is essential. Serum or plasma urea nitroge n measurement (mass/volume)Ordered By: Dr. Jacobs on 01-21-2023 Urea nitrogen [Mass/Vol] 11 mg/dL 7-18 [facility] Thin prep Papanicolaou smear with manual screeningOrdered By: Dr. Jacobs on 01-21-2023 Thin prep Papanicolaou smear with manual screening 8 5-15 [facility] Absolute lymphocyte countOrd ered By: Dr. Kay on 11-19-2022 Lymphocytes Auto (Unsp spec) [#/Vol] 2.69 10*3/uL 0.83-4.51 [facility] Basophil percentageOrdered B y: Dr. Kay on 11-19-2022 Basophils/100 WBC (Bld) 0.4 % 0-1 [facility] Chloride [Moles/Vol] 104 mmol/L 98-107 [facility] Eosinophils/100 WBC (Bld) 2.4 % 0-5 [facility] Glucose [Mass/Vol] 194 mg/dL 74-106 [facility] Comment on above: Fasting Glucose resu lt greater than or equal to 126 mg/dL suggests DIABETES MELLITUS per A.D.A. criteria. Neutrophils (Bld) [#/Vol] 1.7 10*3/uL 2.0-7.7 [facility] Neutrophils/100 WBC (Bld) 33.7 % 47-70 [facility] Potassium [Moles/Vol] 3.4 mmol/L 3.5-5.1 [facility] Sodium [Moles/Vol] 138 mmol/L 136-145 [facility] WBC (Bld) [#/Vol] 5.1 10*3/uL 4.4-11.0 [facility] Basophil percentageOrdered B y: Dr. Piña on 11-19-2022 Cholesterol [Mass/Vol] 144 mg/dL <200 [facility] Comment on above: <200 mg/dL Desirable 200-240 mg/dL Borderline >240 mg/dL High Risk Triglyceride [Mass/Vol] 227 mg/dL <199 [facility] Comment on above: The drugs N-Acetylcy steine and Metamizole may falsely depress this assay.Serum Triglycerides Reference Interval Normal <150 mg/dL Borderline high 150 - 199 mg/dL High 200 - 499 mg/dL Very High > or = 500 mg/dL Beta hCG serum qualOrdered B y: Dr. Piña on 11-19-2022 Beta HCG ( test) Ql Negative [facility] Blood erythrocytes count (nu mber/volume)Ordered By: Dr. Kay on 11-19-2022 RBC (Bld) [#/Vol] 3.74 10*6/uL 4.2-5.4 [facility] Blood hemoglobin measurement (mass/volume)Ordered By: Dr. Kay on 11-19-2022 Hemoglobin (Bld) [Mass/Vol] 12.0 g/dL 12.0-15.0 [facility] Blood lymphocytes/100 leukoc ytesOrdered By: Dr. Kay on 11-19-2022 Lymphocytes/100 WBC (Bld) 52.7 % 19-41 [facility] Blood monocytes/100 leukocyt esOrdered By: Dr. Kay on 11-19-2022 Monocytes/100 WBC (Bld) 10.6 % 0-10 [facility] Blood platelet mean volumeOr dered By: Dr. Kay on 11-19-2022 Platelet mean volume (Bld) [Entitic vol] 9.5 fL 6.2-12.0 [facility] Determination of erythrocyte mean corpuscular volume (MCV)Ordered By: Dr. Kay on 11-19-2022 MCV (RBC) [Entitic vol] 92.2 fL 81-99 [facility] Glucose Glucometer (dC) [M ass/Vol]Ordered By: Dr. Kay on 11-19-2022 Glucose [Mass/Vol] 295 mg/dL 74-106 [facility] Comment on above: MANAGEMENT OF PATIEN T CARE PER NURSING PROTOCOL Hematocrit Auto (Bld) [Volum e fraction]Ordered By: Dr. Kay on 11-19-2022 Hematocrit (Bld) [Volume fraction] 34.5 % 37-47 [facility] Laboratory - Chemistry and C hemistry - challengeOrdered By: Dr. Kay on 11-19-2022 CO2 [Moles/Vol] 28.0 mmol/L 21.0-32.0 [facility] Urea nitrogen/Creatinine [Mass ratio] 14.3 mg/mg 10-20 [facility] Laboratory - CoagulationOrde red By: Dr. Tavares on 11-19-2022 aPTT Coag (Bld) [Time] 63.5 s 24.1-36.2 [facility] Laboratory - Hematology and Cell countsOrdered By: Dr. Kay on 11-19-2022 Erythrocyte distribution width (RBC) [Entitic vol] 41.3 fL 35.1-43.9 [facility] Erythrocyte distribution width (RBC) [Ratio] 12.2 % 11.6-14.6 [facility] Immature granulocytes/100 WBC (Bld) 0.200 % 0.0-0.9 [facility] Comment on above: IG% - Immature Granu locytes (promyelocytes, myelocytes and metamyelocytes) > 1% indicates that a LEFT SHIFT is Present. MCH (RBC) [Entitic mass] 32.1 pg 27.0-32.0 [facility] Nucleated RBC/100 WBC (Bld) [Ratio] 0 % 0-5 [facility] MCHC Auto (RBC) [Mass/Vol]Or dered By: Dr. Kay on 11-19-2022 MCHC (RBC) [Mass/Vol] 34.8 g/dL 32-36 [facility] No Panel InformationOrdered By: Dr. Kay on 11-19-2022 Estimated Creatinine Clearance Calc 97.38 ml/min [facility] Estimated GFR (MDRD) Amer 131 mL/min >60 [facility] Comment on above: GFR Calc Estimated GFR (MDRD) Non-Af Amer 108 mL/min >60 [facility] Comment on above: Non- GFR Calc No Panel InformationOrdered By: Dr. Piña on 11-19-2022 Troponin I High Sensitivity 307 pg/mL 3.0-54.0 [facility] Comment on above: Critical Result(s) C alled at: 04:53:08 11/19/2022 by: Kannan BRAUN RN ([facility]) Results read back by same. Please Note: New Test Units and Gender Specific Reference Ranges. For more information see Policy Stat Procedure [place] High Sensitivity Troponin (TNIH) and attachments. Platelets bldOrdered By: Dr. Kay on 11-19-2022 Platelets (Bld) [#/Vol] 194 10*3/uL 150-450 [facility] Serum or plasma calcium alphonso urement (mass/volume)Ordered By: Dr. Kay on 11-19-2022 Calcium [Mass/Vol] 7.7 mg/dL 8.5-10.1 [facility] Serum or plasma cholesterol in HDL measurement (mass/volume)Ordered By: Dr. Piña on 11-19-2022 Cholesterol in HDL [Mass/Vol] 42 mg/dL >40 [facility] Comment on above: The drugs N-Acetylcy steine and Metamizole may falsely depress this assay. Reference Range HDL <40 mg/dL Low HDL Cholesterol HDL >or= 60 mg/dL High HDL Cholesterol Serum or plasma cholesterol in VLDL measurement (mass/volume)Ordered By: Dr. Piña on 11-19-2022 Cholesterol in VLDL [Mass/Vol] 45 mg/dL 5-40 [facility] Serum or plasma creatinine m easurement (mass/volume)Ordered By: Dr. Kay on 11-19-2022 Creatinine [Mass/Vol] 0.63 mg/dL 0.55-1.02 [facility] Comment on above: The validity of the calculated GFR & GFRAA in patients over 70 years has not been determined. Clinical correlation is essential. Serum or plasma low density lipoprotein (LDL) cholesterol measurement (mass/volume)Ordered By: Dr. Piña on 11-19-2022 Cholesterol in LDL [Mass/Vol] 57 mg/dL 0-130 [facility] Serum or plasma urea nitroge n measurement (mass/volume)Ordered By: Dr. Kay on 11-19-2022 Urea nitrogen [Mass/Vol] 9 mg/dL 7-18 [facility] Thin prep Papanicolaou smear with manual screeningOrdered By: Dr. Kay on 11-19-2022 Thin prep Papanicolaou smear with manual screening 6 5-15 [facility] Basophil percentageOrdered B y: Dr. Piña on 11-18-2022 Bilirubin [Mass/Vol] 0.50 mg/dL 0.20-1.00 [facility] Comment on above: For patients on eltr ombopag therapy, use of Dimension [place] TBIL is not recommended. Protein [Mass/Vol] 7.4 g/dL 6.4-8.2 [facility] Direct bilirubinOrdered By: Dr. Piña on 11-18-2022 Bilirubin.direct [Mass/Vol] 0.13 mg/dL 0.00-0.30 [facility] INR in Blood by Coagulation assayOrdered By: Dr. Tavares on 11-18-2022 INR Coag (Bld) [Relative time] 1.0 {INR} [facility] Laboratory - Chemistry and C hemistry - challengeOrdered By: Dr. Piña on 11-18-2022 ALP [Catalytic activity/Vol] 82 U/L 45-117 [facility] ALT [Catalytic activity/Vol] 33 U/L 13-56 [facility] Globulin (S) [Mass/Vol] 4.0 g/dL 2.2-4.2 [facility] Laboratory - CoagulationOrde red By: Dr. Tavares on 11-18-2022 PT Coag (PPP) [Time] 12.9 s 11.7-14.9 [facility] No Panel InformationOrdered By: Dr. Tavares on 11-18-2022 D-Dimer Quantitative (PE/DVT) 0.40 FEU/ug/m 0.27-0.49 [facility] Comment on above: NORMAL D-Dimer level (<0.50) indicates no DVT or PE. Serum or plasma albumin alphonso urement (mass/volume)Ordered By: Dr. Piña on 11-18-2022 Albumin [Mass/Vol] 3.4 g/dL 3.2-5.0 [facility] Thin prep Papanicolaou smear with manual screeningOrdered By: Dr. Piña on 11-18-2022 Thin prep Papanicolaou smear with manual screening 26 U/L 15-37 [facility] Absolute lymphocyte counton 09-05-2022 Lymphocytes Auto (Unsp spec) [#/Vol] 3.03 10*3/uL 0.83-4.51 [facility] Work Phone: Basophil percentageon 2021 Basophils/100 WBC (Bld) 0.5 % 0-1 [facility] Work Phone: Chloride [Moles/Vol] 105 mmol/L 98-107 [facility] Work Phone: Eosinophils/100 WBC (Bld) 3.3 % 0-5 [facility] Work Phone: Glucose [Mass/Vol] 246 mg/dL 74-106 [facility] Work Phone: Comment on above: Glucose result great er than or equal to 200 mg/dLsuggests DIABETES MELLITUS per A.D.A. criteria. Neutrophils (Bld) [#/Vol] 3.8 10*3/uL 2.0-7.7 [facility] Work Phone: Neutrophils/100 WBC (Bld) 48.3 % 47-70 [facility] Work Phone: Potassium [Moles/Vol] 3.6 mmol/L 3.5-5.1 [facility] Work Phone: Sodium [Moles/Vol] 142 mmol/L 136-[address] [facility] Work Phone: WBC (Bld) [#/Vol] 7.8 10*3/uL 4.4-11.[address] [facility] [facility] Work Phone: Blood erythrocytes count (nu mber/volume)on 09-05-2022 RBC (Bld) [#/Vol] 4.17 10*6/uL 4.2-5.[facility]: Blood hemoglobin measurement (mass/volume)on 09-05-2022 Hemoglobin (Bld) [Mass/Vol] 13.1 g/dL 12.0-15.0 [facility] Work Phone: Blood lymphocytes/100 leukoc yteson 09-05-2022 Lymphocytes/100 WBC (Bld) 39.0 % 19-41 [facility] Work Phone: Blood monocytes/100 leukocyt eson 09-05-2022 Monocytes/100 WBC (Bld) 8.5 % 0-10 [facility] Work Phone: Blood platelet mean volumeon 09-05-2022 Platelet mean volume (Bld) [Entitic vol] 9.6 fL 6.2-12.0 [facility] Work Phone: Determination of erythrocyte mean corpuscular volume (MCV)on 09-05-2022 MCV (RBC) [Entitic vol] 92.1 fL 81-99 [facility] Work Phone: Hematocrit Auto (Bld) [Volum e fraction]on 09-05-2022 Hematocrit (Bld) [Volume fraction] 38.4 % 37-47 [facility] Work Phone: Laboratory - Chemistry and C hemistry - challengeon 09-05-2022 CO2 [Moles/Vol] 27.0 mmol/L 21.0-32.0 [facility] Work Phone: Urea nitrogen/Creatinine [Mass ratio] 16.7 mg/mg 10-20 [facility] Work Phone: Laboratory - Hematology and Cell countson 09-05-2022 Erythrocyte distribution width (RBC) [Entitic vol] 42.3 fL 35.1-43.9 [facility] Work Phone: Erythrocyte distribution width (RBC) [Ratio] 12.7 % 11.6-14.6 [facility] Work Phone: Immature granulocytes/100 WBC (Bld) 0.400 % 0.0-0.9 [facility] Work Phone: Comment on above: IG% - Immature Granu locytes (promyelocytes, myelocytes and metamyelocytes) > 1% indicates that a LEFT SHIFT is Present. MCH (RBC) [Entitic mass] 31.4 pg 27.0-32.0 [facility] Work Phone: Nucleated RBC/100 WBC (Bld) [Ratio] 0 % 0-5 [facility] Work Phone: MCHC Auto (RBC) [Mass/Vol]on 09-05-2022 MCHC (RBC) [Mass/Vol] 34.1 g/dL 32-36 [facility] Work Phone: No Panel Informationon 09-05 Estimated Creatinine Clearance Calc 78.65 ml/min [facility] Work Phone: Estimated GFR (MDRD) Amer 103 mL/min >60 [facility] Work Phone: Comment on above: GFR Calc Estimated GFR (MDRD) Non-Af Amer 85 mL/min >60 [facility] Work Phone: Comment on above: Non- GFR Calc Ethyl Alcohol Level 237.0 mg/dL [facility] Work Phone: Comment on above: The serum:whole bloo d ethanol ratio is approximately 1.14and varies slightly with hematocrit. Medical Alcohol reference interval and critical value innon-tolerant individuals; 50 - 100 Impairment 100 Intoxication 100 - 250 Severe Poisoning 250 - 400 Deep/possible fatal coma Platelets bldon 09-05-2022 Platelets (Bld) [#/Vol] 318 10*3/uL 150-450 [facility] Work Phone: Serum or plasma calcium alphonso urement (mass/volume)on 09-05-2022 Calcium [Mass/Vol] 8.8 mg/dL 8.5-10.1 [facility] Work Phone: Serum or plasma creatinine m easurement (mass/volume)on 09-05-2022 Creatinine [Mass/Vol] 0.78 mg/dL 0.55-1.02 [facility] Work Phone: Comment on above: The validity of the calculated GFR & GFRAA in patients over 70 years has not been determined. Clinical correlation is essential. Serum or plasma urea nitroge n measurement (mass/volume)on 09-05-2022 Urea nitrogen [Mass/Vol] 13 mg/dL 7-18 [facility] Work Phone: Thin prep Papanicolaou smear with manual screeningon 09-05-2022 Thin prep Papanicolaou smear with manual screening 10 5-15 [facility] Work Phone: XR HIP GENERAL 3V PELV/AP/LA T LEFTon 07-21-2022 [facility] XR Pelvis and Hip - left AP and Lateral frogon 07-21-2022 IMPRESSION: Negative pelvis and left hip. Supply Person: PSC[employer] Transcribe Date/Time: Jul 21 2022 7:27P Dictated by : BETINA MAGANA MD This examination was interpreted and the report reviewed and electronically signed by: BETINA MAGANA MD on Jul 21 2022 7:29PM [facility] DIVISION OF RADIOLOGY * [...] dislocation. DIVISION OF RADIOLOGY Provider, [place] - 07/21/2022 * * *Final Report* * [...] IMPRESSION IMPRESSION: Negative pelvis and left hip. Supply Person: PSC[employer] Transcribe Date/Time: Jul 21 2022 7:27P Dictated by : BETINA MAGANA MD This examination was interpreted and the report reviewed and electronically signed by: BETINA MAGANA MD on Jul 21 2022 7:29PM EST [facility] Radiology Study observation (narrative) Aric zhang [facility] XR Pelvis and Hip - left AP and Lateral frogOrdered By: [facility] Provider on 07-21-2022 [facility] Laboratory - Microbiology an d Antimicrobial susceptibilityon 05-31-2022 SARS-CoV-2 (COVID-19) RNA ALLEY+probe Ql (Unsp spec) Not detected [facility] Work Phone: Absolute lymphocyte counton 02-22-2022 Lymphocytes Auto (Unsp spec) [#/Vol] 2.29 10*3/uL 0.83-4.51 [facility] Work Phone: Basophil percentageon 2021 Basophils/100 WBC (Bld) 0.6 % 0-1 [facility] Work Phone: Chloride [Moles/Vol] 103 mmol/L 98-107 [facility] Work Phone: Eosinophils/100 WBC (Bld) 4.7 % 0-5 [facility] Work Phone: Glucose [Mass/Vol] 207 mg/dL 74-106 [facility] Work Phone: Comment on above: Glucose result great er than or equal to 200 mg/dLsuggests DIABETES MELLITUS per A.D.A. criteria. Neutrophils (Bld) [#/Vol] 3.2 10*3/uL 2.0-7.7 [facility] Work Phone: Neutrophils/100 WBC (Bld) 49.0 % 47-70 [facility] Work Phone: Potassium [Moles/Vol] 3.6 mmol/L 3.5-5.1 [facility] Work Phone: Sodium [Moles/Vol] 135 mmol/L 136-145 [facility] Work Phone: [phone] WBC (Bld) [#/Vol] 6.6 10*3/uL 4.4-11.0 [facility] Work Phone: Blood erythrocytes count (nu mber/volume)on 02-22-2022 RBC (Bld) [#/Vol] 4.50 10*6/uL 4.2-5.4 [facility] Work Phone: [phone] Blood hemoglobin measurement (mass/volume)on 02-22-2022 Hemoglobin (Bld) [Mass/Vol] 13.8 g/dL 12.0-15.0 [facility] Work Phone: Blood lymphocytes/100 leukoc yteson 02-22-2022 Lymphocytes/100 WBC (Bld) 34.9 % 19-41 [facility] Work Phone: Blood monocytes/100 leukocyt eson 02-22-2022 Monocytes/100 WBC (Bld) 10.2 % 0-10 [facility] Work Phone: Blood platelet mean volumeon 02-22-2022 Platelet mean volume (Bld) [Entitic vol] 10.3 fL 6.2-12.0 [facility] Work Phone: Determination of erythrocyte mean corpuscular volume (MCV)on 02-22-2022 MCV (RBC) [Entitic vol] 88.9 fL 81-99 [facility] Work Phone: Hematocrit Auto (Bld) [Volum e fraction]on 02-22-2022 Hematocrit (Bld) [Volume fraction] 40.0 % 37-47 [facility] Work Phone: Laboratory - Chemistry and C hemistry - challengeon 02-22-2022 CO2 [Moles/Vol] 27.0 mmol/L 21.0-32.0 [facility] Work Phone: Urea nitrogen/Creatinine [Mass ratio] 12.3 mg/mg 10-20 [facility] Work Phone: Laboratory - Hematology and Cell countson 02-22-2022 Erythrocyte distribution width (RBC) [Entitic vol] 39.8 fL 35.1-43.9 [facility] Work Phone: Erythrocyte distribution width (RBC) [Ratio] 12.2 % 11.6-14.6 [facility] Work Phone: Immature granulocytes/100 WBC (Bld) 0.600 % 0.0-0.9 [facility] Work Phone: Comment on above: IG% - Immature Granu locytes (promyelocytes, myelocytes and metamyelocytes) > 1% indicates that a LEFT SHIFT is Present. MCH (RBC) [Entitic mass] 30.7 pg 27.0-32.0 [facility] Work Phone: Nucleated RBC/100 WBC (Bld) [Ratio] 0 % 0-5 [facility] Work Phone: MCHC Auto (RBC) [Mass/Vol]on 02-22-2022 MCHC (RBC) [Mass/Vol] 34.5 g/dL 32-36 [facility] Work [facility]: No Panel Informationon 02-22 D-Dimer Quantitative (PE/DVT) < 0.27 FEU/ug/m 0.27-0.49 [facility] Work Phone: Comment on above: NORMAL D-Dimer level (<0.50) indicates no DVT or PE. Estimated Creatinine Clearance Calc 84.92 ml/min [facility] Work Phone: Estimated GFR (MDRD) Amer 111 mL/min >60 [facility] Work Phone: Comment on above: GFR Calc Estimated GFR (MDRD) Non-Af Amer 91 mL/min >60 [facility] Work Phone: Comment on above: Non- GFR Calc Troponin I High Sensitivity < 3 pg/mL 3.0-54.0 [facility] Work Phone: Comment on above: Please Note: New [place] t Units and Gender Specific Reference Ranges. For more information see Policy Stat Procedure [place] High Sensitivity Troponin (TNIH) and attachments. Platelets bldon 02-22-2022 Platelets (Bld) [#/Vol] 311 10*3/uL 150-450 [facility] Work Phone: Serum or plasma calcium alphonso urement (mass/volume)on 02-22-2022 Calcium [Mass/Vol] 9.4 mg/dL 8.5-10.1 [facility] Work Phone: Serum or plasma creatinine m easurement (mass/volume)on 02-22-2022 Creatinine [Mass/Vol] 0.73 mg/dL 0.55-1.02 [facility] Work Phone: Comment on above: The validity of the calculated GFR & GFRAA in patients over 70 years has not been determined. Clinical correlation is essential. Serum or plasma urea nitroge n measurement (mass/volume)on 02-22-2022 Urea nitrogen [Mass/Vol] 9 mg/dL 7-18 [facility] Work Phone: Thin prep Papanicolaou smear with manual screeningon 02-22-2022 Thin prep Papanicolaou smear with manual screening 5 5-15 [facility] Work Phone: ALCOHOLon 06-10-[address] [facility] Comment on above: Order Comment: TEST ALCOHOL WAS CANCELLED, 06/10/2021 20:44 Result Comment: FOR MEDICAL USE ONLY. Performed By: #### A #### [facility] [address] [place] [address] Provider Note - ED v2on 05-29 Provider [...] made to minimize errors. Minor errors in electrician helper automotive may be present. Please call if questions.. [...] documented data. SIGNIFICANT EVENTS: No documented data. LEAN ENGINEER: Is : no(1) Is : no(1) RESULTS/VITAL [...] Referenced From Triage - ED 10-Jun-2021 20:27 [facility] Triage - EDon 06-10-2021 Triage - ED [...] BMI (kg/m2): 27.531 Calculated BSA (m2) 1.81 Charlo Coma Scale: Best Eye Response: (E4) spontaneous [...] Updated: 10-Jun-2021 20:30 by Rocky Hebert (RN) [facility] Vital Signs Date Time Vital Sign Value Performing Clinician Facility 08-15-2025 15:00-0400 Heart rate 103 /min Abisai Haley MD Work Phone: [facility] 08-15-2025 14:00-0400 Body temperature 98.3 [degF] Abisai Haley MD Work Phone: [facility] 08-15-2025 14:00-0400 Diastolic blood pressure 91 mm[Hg] Abisai Haley MD Work Phone: [facility] 08-15-2025 14:00-0400 Respiratory rate 14 /min Abisai Haley MD Work Phone: [facility] 08-15-2025 14:00-0400 SaO2% (BldA) [Mass fraction] 100 % Abisai Haley MD Work Phone: [facility] 08-15-2025 14:00-0400 Systolic blood pressure 123 mm[Hg] Abisai Haley MD Work Phone: [facility] 08-15-2025 06:00-0400 Body mass index (BMI) [Ratio] 20.3 kg/m2 Abisai Haley MD Work Phone: [facility] 08-15-2025 06:00-0400 Body weight 53.8 kg Abisai Haley MD Work Phone: [facility] 08-13-2025 09:16-0400 Body height 162.56 cm Abisai Haley MD Work Phone: [facility] 08-13-2025 09:00-0400 Inhaled oxygen flow rate 2 L/min Abisai Haley MD Work Phone: [facility] 08-12-2025 12:51-0400 Heart rate 115 /min Abisai Haley MD Work Phone: [facility] 08-12-2025 12:51-0400 Inhaled oxygen flow rate 2 L/min Abisai Haley MD Work Phone: [facility] 08-12-2025 12:51-0400 Respiratory rate 17 /min Abisai Haley MD Work Phone: [facility] 08-12-2025 12:51-0400 SaO2% (BldA) [Mass fraction] 95 % Abisai Haley MD Work Phone: [facility] 08-12-2025 12:43-0400 Body mass index (BMI) [Ratio] 20.2 kg/m2 Abisai Haley MD Work Phone: [facility] 08-12-2025 12:43-0400 Body weight 53.6 kg Abisai Haley MD Work Phone: [facility] 08-12-2025 12:42-0400 Body temperature 98.3 [degF] Abisai Haley MD Work Phone: [facility] 08-12-2025 12:42-0400 Diastolic blood pressure 85 mm[Hg] Abisai Haley MD Work Phone: [facility] 08-12-2025 12:42-0400 Systolic blood pressure 161 mm[Hg] Abisai Haley MD Work Phone: [facility] 08-12-2025 08:19-0400 Body height 162.56 cm Abisai Haley MD Work Phone: [facility] 07-20-2025 13:05-0400 Heart rate 79 /min Abisai Haley MD Work Phone: 2(578)795-243937 [address] 07-20-2025 13:05-0400 Respiratory rate 16 /min Abisai Haley MD Work Phone: 4(966)862-894737 [address] 07-20-2025 07:27-0400 Inhaled oxygen flow rate 2 L/min Abisai Haley MD Work Phone: 1(562)006-245737 [address] 07-20-2025 07:27-0400 SaO2% (BldA) [Mass fraction] 94 % Abisai Haley MD Work Phone: 6(521)280-398837 [address] 07-20-2025 03:33-0400 Body temperature 98.7 [degF] Abisai Haley MD Work Phone: 7(850)926-049059 [place] [address] 07-20-2025 03:33-0400 Diastolic blood pressure 69 mm[Hg] Abisia Hlaey MD Work Phone: 2(898)278-038459 [place] [address] 07-20-2025 03:33-0400 Systolic blood pressure 116 mm[Hg] Abisai Haley MD Work Phone: 7(924)982-085537 [address] 07-20-2025 02:08-0400 Body mass index (BMI) [Ratio] 24.1 kg/m2 Abisai Haley MD Work Phone: 9(173)746-574837 [address] 07-20-2025 02:08-0400 Body weight 64.1 kg Abisai Haley MD Work Phone: 6(416)922-584137 [address] 07-18-2025 15:17-0400 Body height 162.56 cm Abisai Haley MD Work Phone: 2(853)081-294218 [place] [address] 07-17-2025 13:12-0400 Body temperature 98.4 [degF] Abisai Haley MD Work Phone: [facility] 07-17-2025 13:12-0400 Diastolic blood pressure 97 mm[Hg] Abisai Haley MD Work Phone: [facility] 07-17-2025 13:12-0400 Heart rate 88 /min Abisai Haley MD Work Phone: [facility] 07-17-2025 13:12-0400 Respiratory rate 16 /min Abisai Haley MD Work Phone: [facility] 07-17-2025 13:12-0400 SaO2% (BldA) [Mass fraction] 99 % Abisai Haley MD Work Phone: [facility] 07-17-2025 13:12-0400 Systolic blood pressure 181 mm[Hg] Abisai Haley MD Work Phone: 2(864)441-391337 [address] 07-17-2025 10:14-0400 Body height 162.56 cm Abisai Haley MD Work Phone: [facility] 07-17-2025 10:14-0400 Body mass index (BMI) [Ratio] 20.7 kg/m2 Abisai Haley MD Work Phone: [facility] 07-17-2025 10:14-0400 Body weight 54.93 kg Abisai Haley MD Work Phone: [facility] 05-28-2025 13:43-0400 Body temperature 98 [degF] Abisai Haley MD Work Phone: [facility] 05-28-2025 13:43-0400 Diastolic blood pressure 77 mm[Hg] Abisai Haley MD Work Phone: 7(457)497-410018 [place] [address] 05-28-2025 13:43-0400 Heart rate 83 /min Abisai Haley MD Work Phone: [facility] 05-28-2025 13:43-0400 Respiratory rate 16 /min Abisai Haley MD Work Phone: [facility] 05-28-2025 13:43-0400 SaO2% (BldA) [Mass fraction] 96 % Abisai Haley MD Work Phone: [facility] 05-28-2025 13:43-0400 Systolic blood pressure 117 mm[Hg] Abisai Haley MD Work Phone: [facility] 05-27-2025 08:08-0400 Inhaled oxygen flow rate 2 L/min Abisai Haley MD Work Phone: 7(283)750-603518 [place] [address] 05-25-2025 02:53-0400 Body height 162.56 cm Abisai Haley MD Work Phone: 4(076)762-059459 [place] [address] 05-25-2025 02:53-0400 Body mass index (BMI) [Ratio] 21.4 kg/m2 Abisai Haley MD Work Phone: 1(866)590-983959 [place] [address] 05-25-2025 02:53-0400 Body weight 56.7 kg Abisai Haley MD Work Phone: [facility] 05-25-2025 02:24-0400 Respiratory rate 16 /min Abisai Haley MD Work Phone: [facility] 05-25-2025 02:24-0400 SaO2% (BldA) [Mass fraction] 96 % Abisai Haley MD Work Phone: [facility] 05-25-2025 00:56-0400 Body temperature 98.3 [degF] Abisai Haley MD Work Phone: [facility] 05-25-2025 00:56-0400 Diastolic blood pressure 63 mm[Hg] Abisai Haley MD Work Phone: [facility] 05-25-2025 00:56-0400 Heart rate 99 /min Abisai Haley MD Work Phone: [facility] 05-25-2025 00:56-0400 Systolic blood pressure 141 mm[Hg] Abisai Haley MD Work Phone: 3(721)614-960918 [place] [address] 05-24-2025 23:09-0400 Body height 162.56 cm Abisai Haley MD Work Phone: [facility] 05-24-2025 23:09-0400 Body mass index (BMI) [Ratio] 21.7 kg/m2 Abisai Haley MD Work Phone: [facility] 05-24-2025 23:09-0400 Body weight 57.4 kg Abisai Haley MD Work Phone: [facility] 05-06-2025 11:28-0400 Body temperature 97.9 [degF] Abisai Haley MD Work Phone: [facility] 05-06-2025 11:28-0400 Diastolic blood pressure 80 mm[Hg] Abisai Haley MD Work Phone: [facility] 05-06-2025 11:28-0400 Heart rate 75 /min Abisai Haley MD Work Phone: [facility] 05-06-2025 11:28-0400 Respiratory rate 16 /min Abisai Haley MD Work Phone: [facility] 05-06-2025 11:28-0400 SaO2% (BldA) [Mass fraction] 92 % Abisai Haley MD Work Phone: [facility] 05-06-2025 11:28-0400 Systolic blood pressure 125 mm[Hg] Abisai Haley MD Work Phone: [facility] 05-06-2025 02:33-0400 Inhaled oxygen concentration 21 % Abisai Haley MD Work Phone: [facility] 05-05-2025 20:11-0400 Inhaled oxygen flow rate 2 L/min Abisai Haley MD Work Phone: [facility] 05-04-2025 11:23-0400 Body height 162.56 cm Abisai Haley MD Work Phone: [facility] 05-04-2025 11:23-0400 Body weight 59.5 kg Abisai Haley MD Work Phone: [facility] 04-26-2025 18:15-0400 Body mass index (BMI) [Ratio] 22.5 kg/m2 Abisai Haley MD Work Phone: [facility] 04-26-2025 17:00-0400 Diastolic blood pressure 86 mm[Hg] Abisai Haley MD Work Phone: [facility] 04-26-2025 17:00-0400 Heart rate 90 /min Abisai Haley MD Work Phone: [facility] 04-26-2025 17:00-0400 Respiratory rate 29 /min Abisai Haley MD Work Phone: [facility] 04-26-2025 17:00-0400 SaO2% (BldA) [Mass fraction] 95 % Abisai Haley MD Work Phone: [facility] 04-26-2025 17:00-0400 Systolic blood pressure 169 mm[Hg] Abisai Haley MD Work Phone: [facility] 04-26-2025 16:19-0400 Body temperature 98.1 [degF] Abisai Haley MD Work Phone: [facility] 04-26-2025 13:42-0400 Body height 162.56 cm Abisai Haley MD Work Phone: [facility] 04-26-2025 13:42-0400 Body mass index (BMI) [Ratio] 22.3 kg/m2 Abisai Haley MD Work Phone: [facility] 04-26-2025 13:42-0400 Body weight 58.96 kg Abisai Haley MD Work Phone: [facility] 04-12-2025 00:24-0400 Body temperature 98 [degF] Abisai Haley MD Work Phone: [facility] 04-12-2025 00:24-0400 Diastolic blood pressure 66 mm[Hg] Abisai Haley MD Work Phone: [facility] 04-12-2025 00:24-0400 Heart rate 78 /min Abisai Haley MD Work Phone: [facility] 04-12-2025 00:24-0400 Respiratory rate 16 /min Abisai Haley MD Work Phone: [facility] 04-12-2025 00:24-0400 SaO2% (BldA) [Mass fraction] 100 % Abisai Haley MD Work Phone: [facility] 04-12-2025 00:24-0400 Systolic blood pressure 125 mm[Hg] Abisai Haley MD Work Phone: [facility] 04-11-2025 23:20-0400 Inhaled oxygen flow rate 2 L/min Abisai Haley MD Work Phone: [facility] 04-11-2025 21:46-0400 Body mass index (BMI) [Ratio] 24.4 kg/m2 Abisai Haley MD Work Phone: [facility] 04-11-2025 21:46-0400 Body weight 64.6 kg Abisai Haley MD Work Phone: [facility] 04-11-2025 21:42-0400 Body height 162.56 cm Abisai Haley MD Work Phone: [facility] 04-04-2025 17:00-0400 Heart rate 97 /min Abisai Haley MD Work Phone: [facility] 04-04-2025 17:00-0400 Respiratory rate 25 /min Abisai Haley MD Work Phone: [facility] 04-04-2025 16:03-0400 Body temperature 98.4 [degF] Abisai Haley MD Work Phone: [facility] 04-04-2025 16:03-0400 Diastolic blood pressure 88 mm[Hg] Abisai Haley MD Work Phone: [facility] 04-04-2025 16:03-0400 SaO2% (BldA) [Mass fraction] 97 % Abisai Haley MD Work Phone: [facility] 04-04-2025 16:03-0400 Systolic blood pressure 157 mm[Hg] Abisai Haley MD Work Phone: [facility] 04-04-2025 11:51-0400 Body mass index (BMI) [Ratio] 25.1 kg/m2 Abisai Haley MD Work Phone: [facility] 04-04-2025 11:51-0400 Body weight 66.4 kg Abisai Haley MD Work Phone: [facility] 04-04-2025 10:24-0400 Body height 162.56 cm Abisai Haley MD Work Phone: [facility] 04-22-2024 13:48-0400 Body mass index (BMI) [Ratio] 29.6 kg/m2 Aretha Praisler-Wood 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 Phone: [facility] 04-22-2024 13:48-0400 Body temperature 97.39 [degF] Aretha Praisler-Wood 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 Phone: [facility] 04-22-2024 13:48-0400 Body weight 75.8 kg Aretha Praisler-Wood 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 Phone: [facility] 04-22-2024 13:48-0400 Diastolic blood pressure 84 mm[Hg] Aretha Praisler-Wood 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 Phone: [facility] 04-22-2024 13:48-0400 Heart rate 115 /min Aretha Praisler-Wood 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 Phone: [facility] 04-22-2024 13:48-0400 Respiratory rate 20 /min Aretha Praisler-Wood 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 Phone: [facility] 04-22-2024 13:48-0400 SaO2% (BldA) [Mass fraction] 98 % Aretha Praisler-Wood 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 Phone: [facility] 04-22-2024 13:48-0400 Systolic blood pressure 120 mm[Hg] Aretha Schofield APRN.CNP Work Phone: [facility] 03-22-2024 07:08-0400 Body temperature 97.7 [degF] DO Milana Jose Work Phone: [facility] 03-22-2024 07:08-0400 Diastolic blood pressure 84 mm[Hg] DO Milana Jose Work Phone: [facility] 03-22-2024 07:08-0400 Heart rate 102 /min DO Milana Jose Work Phone: [facility] 03-22-2024 07:08-0400 Respiratory rate 17 /min DO Milana Jose Work Phone: [facility] 03-22-2024 07:08-0400 SaO2% (BldA) [Mass fraction] 95 % DO Milana Jose Work Phone: [facility] 03-22-2024 07:08-0400 Systolic blood pressure 134 mm[Hg] DO Milana Jose Work Phone: [facility] 01-24-2024 21:30-0500 Body temperature 96.9 [degF] DO Milana Jose Work Phone: [facility] 01-24-2024 21:30-0500 Diastolic blood pressure 61 mm[Hg] DO Milana Jose Work Phone: [facility] 01-24-2024 21:30-0500 Heart rate 96 /min DO Milana Jose Work Phone: [facility] 01-24-2024 21:30-0500 Respiratory rate 16 /min DO Milana Jose Work Phone: [facility] 01-24-2024 21:30-0500 SaO2% (BldA) [Mass fraction] 98 % DO Milana Jose Work Phone: [facility] 01-24-2024 21:30-0500 Systolic blood pressure 149 mm[Hg] DO Milana Jose Work Phone: [facility] 01-24-2024 21:25-0500 Body mass index (BMI) [Ratio] 28 kg/m2 DO Milana Jose Work Phone: [facility] 01-24-2024 21:25-0500 Body weight 74 kg DO Milana Jose Work Phone: [facility] 01-24-2024 16:39-0500 Body height 162.56 cm DO Milana Jose Work Phone: [facility] 10-19-2023 10:54-0500 Body height 162.56 cm DO Milana Jose Work Phone: [facility] 10-19-2023 10:54-0500 Body mass index (BMI) [Ratio] 26.2 kg/m2 DO Milana Jose Work Phone: [facility] 10-19-2023 10:54-0500 Body temperature 98.4 [degF] DO Milana Jose Work Phone: [facility] 10-19-2023 10:54-0500 Body weight 69.39 kg DO Milana Jose Work Phone: [facility] 10-19-2023 10:54-0500 Diastolic blood pressure 80 mm[Hg] DO Milana Jose Work Phone: [facility] 10-19-2023 10:54-0500 Heart rate 97 /min DO Milana Jose Work Phone: [facility] 10-19-2023 10:54-0500 Respiratory rate 16 /min DO Milana Jose Work Phone: [facility] 10-19-2023 10:54-0500 SaO2% (BldA) [Mass fraction] 90 % DO Milana Jose Work Phone: [facility] 10-19-2023 10:54-0500 Systolic blood pressure 147 mm[Hg] DO Milana Jose Work Phone: [facility] 10-10-2023 17:58-0500 Diastolic blood pressure 68 mm[Hg] DO Milana Jose Work Phone: [facility] 10-10-2023 17:58-0500 Heart rate 81 /min DO Milana Jose Work Phone: [facility] 10-10-2023 17:58-0500 Respiratory rate 16 /min DO Milana Jose Work Phone: [facility] 10-10-2023 17:58-0500 SaO2% (BldA) [Mass fraction] 97 % DO Milana Jose Work Phone: [facility] 10-10-2023 17:58-0500 Systolic blood pressure 128 mm[Hg] DO Milana Jose Work Phone: [facility] 10-10-2023 15:25-0500 Body mass index (BMI) [Ratio] 26.3 kg/m2 DO Milana Jose Work Phone: [facility] 10-10-2023 15:25-0500 Body temperature 98.4 [degF] DO Milana Jose Work Phone: [facility] 10-10-2023 15:25-0500 Body weight 69.58 kg DO Milana Jose Work Phone: [facility] 09-27-2023 15:27-0400 Body temperature 98.2 [degF] DO Milana Jose Work Phone: [facility] 09-27-2023 15:27-0400 Diastolic blood pressure 78 mm[Hg] DO Milana Jose Work Phone: [facility] 09-27-2023 15:27-0400 Heart rate 92 /min DO Milana Jose Work Phone: [facility] 09-27-2023 15:27-0400 Respiratory rate 17 /min DO Milana Jose Work Phone: [facility] 09-27-2023 15:27-0400 SaO2% (BldA) [Mass fraction] 92 % DO Milana Jose Work Phone: [facility] 09-27-2023 15:27-0400 Systolic blood pressure 145 mm[Hg] DO Milana Jose Work Phone: [facility] 09-15-2023 12:21-0400 Body temperature 98.6 [degF] DO Milana Jose Work Phone: [facility] 09-15-2023 12:21-0400 Diastolic blood pressure 83 mm[Hg] DO Milana Jose Work Phone: [facility] 09-15-2023 12:21-0400 Heart rate 93 /min DO Milana Jose Work Phone: [facility] 09-15-2023 12:21-0400 Respiratory rate 17 /min DO Milana Jose Work Phone: [facility] 09-15-2023 12:21-0400 SaO2% (BldA) [Mass fraction] 94 % DO Milana Jose Work Phone: [facility] 09-15-2023 12:21-0400 Systolic blood pressure 149 mm[Hg] DO Milana Jose Work Phone: [facility] 08-25-2023 10:00-0400 Body height 162.56 cm DO Milana Jose Work Phone: [facility] 08-25-2023 10:00-0400 Body mass index (BMI) [Ratio] 28.3 kg/m2 DO Milana Jose Work Phone: [facility] 08-25-2023 10:00-0400 Body weight 74.84 kg DO Milana Jose Work Phone: [facility] 08-25-2023 10:00-0400 Diastolic blood pressure 85 mm[Hg] DO Milana Jose Work Phone: [facility] 08-25-2023 10:00-0400 Heart rate 63 /min DO Milana Jose Work Phone: [facility] 08-25-2023 10:00-0400 Respiratory rate 18 /min DO Milana Jose Work Phone: [facility] 08-25-2023 10:00-0400 SaO2% (BldA) [Mass fraction] 96 % DO Milana Jose Work Phone: [facility] 08-25-2023 10:00-0400 Systolic blood pressure 136 mm[Hg] DO Milana Jose Work Phone: [facility] 08-23-2023 15:04-0400 Body temperature 97.6 [degF] DO Milana Jose Work Phone: [facility] 08-23-2023 15:04-0400 Diastolic blood pressure 78 mm[Hg] DO Milana Jose Work Phone: [facility] 08-23-2023 15:04-0400 Heart rate 78 /min DO Milana Jose Work Phone: [facility] 08-23-2023 15:04-0400 Respiratory rate 14 /min DO Milana Jose Work Phone: [facility] 08-23-2023 15:04-0400 SaO2% (BldA) [Mass fraction] 99 % DO Milana Jose Work Phone: [facility] 08-23-2023 15:04-0400 Systolic blood pressure 124 mm[Hg] DO Milana Jose Work Phone: [facility] 08-23-2023 11:44-0400 Body height 162.56 cm DO Milana Jose Work Phone: [facility] 08-23-2023 11:44-0400 Body mass index (BMI) [Ratio] 28.3 kg/m2 DO Milana Jose Work Phone: [facility] 08-23-2023 11:44-0400 Body weight 74.88 kg DO Milana Jose Work Phone: [facility] 07-29-2023 17:56-0400 Diastolic blood pressure 74 mm[Hg] DO Milana Jose Work Phone: [facility] 07-29-2023 17:56-0400 Heart rate 73 /min DO Milana Jose Work Phone: [facility] 07-29-2023 17:56-0400 Respiratory rate 15 /min DO Milana Jose Work Phone: [facility] 07-29-2023 17:56-0400 SaO2% (BldA) [Mass fraction] 98 % DO Milana Jose Work Phone: [facility] 07-29-2023 17:56-0400 Systolic blood pressure 117 mm[Hg] DO Milana Jose Work Phone: [facility] 07-29-2023 14:11-0400 Body height 162.56 cm DO Milana Jose Work Phone: [facility] 07-29-2023 14:11-0400 Body mass index (BMI) [Ratio] 27.8 kg/m2 DO Milana Jose Work Phone: [facility] 07-29-2023 14:11-0400 Body temperature 96.3 [degF] DO Milana Jose Work Phone: [facility] 07-29-2023 14:11-0400 Body weight 73.48 kg DO Milana Jose Work Phone: [facility] 07-01-2023 09:44-0400 Body height 162.56 cm DO Milana Jose Work Phone: [facility] 07-01-2023 09:44-0400 Body mass index (BMI) [Ratio] 27.8 kg/m2 DO Milana Jose Work Phone: [facility] 07-01-2023 09:44-0400 Body temperature 98.5 [degF] DO Milana Jose Work Phone: [facility] 07-01-2023 09:44-0400 Body weight 73.48 kg DO Milana Jose Work Phone: [facility] 07-01-2023 09:44-0400 Diastolic blood pressure 88 mm[Hg] DO Milana Jose Work Phone: [facility] 07-01-2023 09:44-0400 Heart rate 88 /min DO Milana Jose Work Phone: [facility] 07-01-2023 09:44-0400 Respiratory rate 18 /min DO Milana Jose Work Phone: [facility] 07-01-2023 09:44-0400 SaO2% (BldA) [Mass fraction] 95 % DO Milana Jose Work Phone: [facility] 07-01-2023 09:44-0400 Systolic blood pressure 136 mm[Hg] DO Milana Jose Work Phone: [facility] 05-25-2023 02:54-0400 Diastolic blood pressure 64 mm[Hg] DO Milana Jose Work Phone: [facility] 05-25-2023 02:54-0400 Heart rate 90 /min DO Milana Jose Work Phone: [facility] 05-25-2023 02:54-0400 Respiratory rate 18 /min DO Milana Jose Work Phone: [facility] 05-25-2023 02:54-0400 Systolic blood pressure 132 mm[Hg] DO Milana Jose Work Phone: [facility] 05-25-2023 02:11-0400 SaO2% (BldA) [Mass fraction] 94 % DO Milana Jose Work Phone: [facility] 05-24-2023 21:32-0400 Body height 162.99 cm DO Milana Jose Work Phone: [facility] 05-24-2023 21:32-0400 Body mass index (BMI) [Ratio] 28.9 kg/m2 DO Milana Jose Work Phone: [facility] 05-24-2023 21:32-0400 Body temperature 96.7 [degF] DO Milana Jose Work Phone: [facility] 05-24-2023 21:32-0400 Body weight 76.9 kg DO Milana Jose Work Phone: [facility] 05-20-2023 09:58-0400 Body height 162.56 cm DO Milana Jose Work Phone: [facility] 05-20-2023 09:57-0400 Body mass index (BMI) [Ratio] 27.6 kg/m2 DO Milana Jose Work Phone: [facility] 05-20-2023 09:57-0400 Body weight 73.02 kg DO Milana Jose Work Phone: [facility] 05-20-2023 09:57-0400 Diastolic blood pressure 98 mm[Hg] DO Milana Jose Work Phone: [facility] 05-20-2023 09:57-0400 Heart rate 81 /min DO Milana Jose Work Phone: [facility] 05-20-2023 09:57-0400 Respiratory rate 18 /min DO Milana Jose Work Phone: [facility] 05-20-2023 09:57-0400 SaO2% (BldA) [Mass fraction] 97 % DO Milana Jose Work Phone: [facility] 05-20-2023 09:57-0400 Systolic blood pressure 156 mm[Hg] DO Milana Jose Work Phone: [facility] 05-05-2023 00:54-0400 Diastolic blood pressure 62 mm[Hg] DO Milana Jose Work Phone: [facility] 05-05-2023 00:54-0400 Heart rate 68 /min DO Milana Jose Work Phone: [facility] 05-05-2023 00:54-0400 Respiratory rate 16 /min DO Milana Jose Work Phone: [facility] 05-05-2023 00:54-0400 SaO2% (BldA) [Mass fraction] 96 % DO Milana Jose Work Phone: [facility] 05-05-2023 00:54-0400 Systolic blood pressure 97 mm[Hg] DO Milana Jose Work Phone: [facility] 05-04-2023 21:23-0400 Body mass index (BMI) [Ratio] 27.2 kg/m2 DO Milana Jose Work Phone: [facility] 05-04-2023 21:23-0400 Body weight 72 kg DO Milana Jose Work Phone: [facility] 05-04-2023 19:53-0400 Body height 162.56 cm DO Milana Jose Work Phone: [facility] 05-04-2023 19:53-0400 Body temperature 97.3 [degF] DO Milana Jose Work Phone: [facility] 04-11-2023 09:46-0400 Body temperature 98 [degF] DO Milana Jose Work Phone: [facility] 04-11-2023 09:46-0400 Diastolic blood pressure 63 mm[Hg] DO Milana Jose Work Phone: [facility] 04-11-2023 09:46-0400 Heart rate 85 /min DO Milana Jose Work Phone: [facility] 04-11-2023 09:46-0400 Respiratory rate 14 /min DO Milana Jose Work Phone: [facility] 04-11-2023 09:46-0400 SaO2% (BldA) [Mass fraction] 97 % DO Milana Jose Work Phone: [facility] 04-11-2023 09:46-0400 Systolic blood pressure 118 mm[Hg] DO Milana Jose Work Phone: [facility] 04-10-2023 03:47-0400 Body height 162.56 cm DO Milana Jose Work Phone: [facility] 04-10-2023 03:47-0400 Body mass index (BMI) [Ratio] 27.4 kg/m2 DO Milana Jose Work Phone: [facility] 04-10-2023 03:47-0400 Body weight 72.5 kg DO Milana Jose Work Phone: [facility] 04-10-2023 02:34-0400 Diastolic blood pressure 61 mm[Hg] DO Milana Jose Work Phone: [facility] 04-10-2023 02:34-0400 Heart rate 87 /min DO Milana Jose Work Phone: [facility] 04-10-2023 02:34-0400 Respiratory rate 16 /min DO Milana Jose Work Phone: [facility] 04-10-2023 02:34-0400 SaO2% (BldA) [Mass fraction] 95 % DO Milana Jose Work Phone: [facility] 04-10-2023 02:34-0400 Systolic blood pressure 114 mm[Hg] DO Milana Jose Work Phone: [facility] 04-10-2023 02:15-0400 Body temperature 98 [degF] DO Milana Jose Work Phone: [facility] 04-09-2023 22:23-0400 Body height 162.56 cm DO Milana Jose Work Phone: [facility] 04-09-2023 22:23-0400 Body mass index (BMI) [Ratio] 26.8 kg/m2 DO Milana Jose Work Phone: [facility] 04-09-2023 22:23-0400 Body weight 70.8 kg DO Milana Jose Work Phone: [facility] 03-22-2023 22:52-0400 Diastolic blood pressure 69 mm[Hg] DO Milana Jose Work Phone: [facility] 03-22-2023 22:52-0400 Heart rate 71 /min DO Milana Jose Work Phone: [facility] 03-22-2023 22:52-0400 Respiratory rate 18 /min DO Milana Jose Work Phone: [facility] 03-22-2023 22:52-0400 SaO2% (BldA) [Mass fraction] 98 % DO Milana Jose Work Phone: [facility] 03-22-2023 22:52-0400 Systolic blood pressure 111 mm[Hg] DO Milana Jose Work Phone: [facility] 03-22-2023 17:49-0400 Body height 162.56 cm DO Milana Jose Work Phone: [facility] 03-22-2023 17:49-0400 Body mass index (BMI) [Ratio] 26.5 kg/m2 DO Milana Jose Work Phone: [facility] 03-22-2023 17:49-0400 Body temperature 96.4 [degF] DO Milana Jose Work Phone: [facility] 03-22-2023 17:49-0400 Body weight 70.08 kg DO Milana Jose Work Phone: [facility] 02-12-2023 10:24-0400 Body temperature 98.2 [degF] DO Milana Trenter Work Phone: [facility] 02-12-2023 10:24-0400 Diastolic blood pressure 66 mm[Hg] DO Milana Trenter Work Phone: [facility] 02-12-2023 10:24-0400 Heart rate 83 /min DO Milana Trenter Work Phone: [facility] 02-12-2023 10:24-0400 Respiratory rate 16 /min DO Milana Trenter Work Phone: [facility] 02-12-2023 10:24-0400 SaO2% (BldA) [Mass fraction] 98 % DO Milana Trenter Work Phone: [facility] 02-12-2023 10:24-0400 Systolic blood pressure 104 mm[Hg] DO Milana Garcia Work Phone: [facility] 01-21-2023 15:06-0500 Diastolic blood pressure 82 mm[Hg] Dr. Calvin Waldrop Work Phone: [facility] 01-21-2023 15:06-0500 Heart rate 90 /min Dr. Calvin Waldrop Work Phone: [facility] 01-21-2023 15:06-0500 Respiratory rate 14 /min Dr. Calvin Waldrop Work Phone: [facility] 01-21-2023 15:06-0500 SaO2% (BldA) [Mass fraction] 98 % Dr. Calvin Waldrop Work Phone: [facility] 01-21-2023 15:06-0500 Systolic blood pressure 165 mm[Hg] Dr. Calvin Waldrop Work Phone: [facility] 01-21-2023 11:49-0500 Body height 162.[address] Calvin Waldrop Work Phone: [facility] 01-21-2023 11:49-0500 Body mass index (BMI) [Ratio] 27.5 kg/m2 Dr. Calvin Waldrop Work Phone: [facility] 01-21-2023 11:49-0500 Body temperature 97.2 [degF] Dr. Calvin Wadlrop Work Phone: [facility] 01-21-2023 11:49-0500 Body weight 72.[address] Calvin Waldrop Work Phone: [facility] 11-19-2022 10:59-0500 Diastolic blood pressure 69 mm[Hg] Dr. Calvin Waldrop Work Phone: [facility] 11-19-2022 10:59-0500 Heart rate 83 /min Dr. Calvin Waldrop Work Phone: [facility] 11-19-2022 10:59-0500 Systolic blood pressure 120 mm[Hg] Dr. Calvin Waldrop Work Phone: [facility] 11-19-2022 10:47-0500 Body temperature 98.5 [degF] Dr. Calvin Waldrop Work Phone: [facility] 11-19-2022 10:47-0500 Respiratory rate 16 /min Dr. Calvin Waldrop Work Phone: [facility] 11-19-2022 10:47-0500 SaO2% (BldA) [Mass fraction] 97 % Dr. Calvin Waldrop Work Phone: [facility] 11-18-2022 13:57-0500 Body height 162.[address] Calvin Waldrop Work Phone: [facility] Work Phone: 11-18-2022 13:57-0500 Body mass index (BMI) [Ratio] 28.5 kg/m2 Dr. Calvin Waldrop Work Phone: [facility] 11-18-2022 13:57-0500 Body weight 75.[address] Calvin Waldrop Work Phone: [facility] 10-31-2022 11:49-0500 Body temperature 98.2 [degF] Dr. Calvin Waldrop Work Phone: [facility] 10-31-2022 11:49-0500 Diastolic blood pressure 88 mm[Hg] Dr. Calvin Waldrop Work Phone: [facility] 10-31-2022 11:49-0500 Heart rate 98 /min Dr. Calvin Waldrop Work Phone: [facility] 10-31-2022 11:49-0500 Respiratory rate 14 /min Dr. Calvin Waldrop Work Phone: [facility] 10-31-2022 11:49-0500 SaO2% (BldA) [Mass fraction] 97 % Dr. Calvin Waldrop Work Phone: [facility] 10-31-2022 11:49-0500 Systolic blood pressure 136 mm[Hg] Dr. Calvin Waldrop Work Phone: [facility] 10-07-2022 14:59-0500 Body temperature 97.8 [degF] Dr. Calvin Waldrop Work Phone: [facility] 10-07-2022 14:59-0500 Diastolic blood pressure 80 mm[Hg] Dr. Calvin Waldrop Work Phone: [facility] 10-07-2022 14:59-0500 Heart rate 107 /min Dr. Calvin Waldrop Work Phone: [facility] 10-07-2022 14:59-0500 Respiratory rate 16 /min Dr. Calvin Waldrop Work Phone: [facility] 10-07-2022 14:59-0500 SaO2% (BldA) [Mass fraction] 98 % Dr. Calvin Waldrop Work Phone: [facility] 10-07-2022 14:59-0500 Systolic blood pressure 154 mm[Hg] Dr. Calvin Waldrop Work Phone: [facility] 09-05-2022 23:51-0400 Diastolic blood pressure 68 mm[Hg] Calvin Waldrop [facility] Work Phone: 09-05-2022 23:51-0400 Heart rate 115 /min [facility] Work Phone: 09-05-2022 23:51-0400 Respiratory rate 16 /min [facility] Work Phone: 09-05-2022 23:51-0400 SaO2% (BldA) [Mass fraction] 96 % [facility] Work Phone: 09-05-2022 23:51-0400 Systolic blood pressure 129 mm[Hg] [facility] Work Phone: 09-05-2022 21:11-0400 Body height 162.56 cm [facility] Work Phone: 09-05-2022 21:11-0400 Body mass index (BMI) [Ratio] 27.5 kg/m2 [facility] Work Phone: 09-05-2022 21:11-0400 Body temperature 98 [degF] [facility] Work Phone: 09-05-2022 21:11-0400 Body weight 72.7 kg [facility] Work Phone: 07-21-2022 18:58-0400 Body temperature 99 [degF] 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 Phone: [facility] 07-21-2022 18:58-0400 Body weight 72.39 kg 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 Phone: [facility] 07-21-2022 18:58-0400 Diastolic blood pressure 84 mm[Hg] 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 Phone: [facility] 07-21-2022 18:58-0400 Heart rate 83 /min 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 Phone: [facility] 07-21-2022 18:58-0400 Respiratory rate 16 /min 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 Phone: [facility] 07-21-2022 18:58-0400 SaO2% (BldA) [Mass fraction] 98 % 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 Phone: [facility] 07-21-2022 18:58-0400 Systolic blood pressure 138 mm[Hg] 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 Phone: [facility] 05-31-2022 12:28-0400 Body mass index (BMI) [Ratio] 26.3 kg/m2 [facility] Work Phone: 05-31-2022 12:28-0400 Body temperature 97.3 [degF] [facility] Work Phone: 05-31-2022 12:28-0400 Body weight 69.51 kg [facility] Work Phone: 05-31-2022 12:28-0400 Diastolic blood pressure 76 mm[Hg] [facility] Work Phone: 05-31-2022 12:28-0400 Heart rate 69 /min [facility] Work Phone: 05-31-2022 12:28-0400 Respiratory rate 18 /min [facility] Work Phone: 05-31-2022 12:28-0400 SaO2% (BldA) [Mass fraction] 99 % [facility] Work Phone: 05-31-2022 12:28-0400 Systolic blood pressure 116 mm[Hg] [facility] Work Phone: 02-22-2022 15:02-0400 Diastolic blood pressure 84 mm[Hg] [facility] Work Phone: 02-22-2022 15:02-0400 Heart rate 71 /min [facility] Work Phone: 02-22-2022 15:02-0400 Respiratory rate 14 /min [facility] Work Phone: 02-22-2022 15:02-0400 SaO2% (BldA) [Mass fraction] 96 % [facility] Work Phone: 02-22-2022 15:02-0400 Systolic blood pressure 120 mm[Hg] [facility] Work Phone: 02-22-2022 12:30-0400 Body temperature 96.2 [degF] [facility] Work Phone: 02-22-2022 12:12-0400 Body height 162.56 cm [facility] Work Phone: 02-22-2022 12:12-0400 Body mass index (BMI) [Ratio] 26.3 kg/m2 [facility] Work Phone: 02-22-2022 12:12-0400 Body weight 69.5 kg [facility] Work Phone: 06-10-2021 22:58-0400 Diastolic blood pressure 62 mm[Hg] No Pcp Required [facility] 06-10-2021 22:58-0400 Heart rate 88 /min No Pcp Required [facility] 06-10-2021 22:58-0400 Respiratory rate 16 /min No Pcp Required [facility] 06-10-2021 22:58-0400 SaO2% (BldA) [Mass fraction] 99 % No Pcp Required [facility] 06-10-2021 22:58-0400 Systolic blood pressure 105 mm[Hg] No Pcp Required [facility] 06-10-2021 22:27-0400 Body height 162.5 cm No Pcp Required [facility] 06-10-2021 22:27-0400 Body temperature 96.98 [degF] No Pcp Required [facility] 06-10-2021 22:27-0400 Body weight 72.7 kg No Pcp Required [facility] Encounters Encounter Date Encounter Type Care [...] Non-patient / [facility] Work [facility]: Start: 05-28-2025 Dr. [facility] Work [facility]: Start: 05-27-2025 Non-patient / Non-[facility] Work Phone: Start: 05-27-2025 [facility] Work Phone: Start: 05-26-2025 Non-patient / Non-visit Dr. Mao Becker [facility] Work Phone: Start: 05-26-2025 Dr. Mao Becker [facility] Work Phone: Start: 05-25-2025 Non-patient / Non-visit Dr. Myra Null MD [facility] Work Phone: Start: 05-25-2025 ambulatory Myra Null Facility :[facility] Start: 05-25-2025 End: 05-28-2025 Evaluation and management of inpatient Dr. Myra Null MD -[facility] Work Phone: Start: 05-25-2025 End: 05-28-2025 Dr. Mao Becker DO -[facility] Surgical 3 Work Phone: Start: 05-06-2025 Non-patient / Non-visit Dr. Mao Becker [facility] Work Phone: Start: 05-06-2025 Dr. Mao Becker [facility] Work Phone: Start: 05-05-2025 Non-patient / Non-visit Dr. Mao Becker [facility] Work Phone: Start: 05-05-2025 Dr. Mao Becker [facility] Work Phone: Start: 05-04-2025 Non-patient / Non-visit Dr. Canelo Myers MD [facility] Work Phone: Start: 05-04-2025 Dr. Canelo Myers MD [facility] Work Phone: Start: 05-03-2025 Non-patient / Non-visit Dr. Canelo Myers MD [facility] Work Phone: Start: 05-03-2025 Dr. Canelo Myers MD [facility] Work Phone: Start: 05-02-2025 Non-patient / Non-visit Dr. Canelo Myers MD [facility] Work Phone: Start: 05-02-2025 Dr. Canelo Myers MD [facility] Work Phone: Start: 05-01-2025 Non-patient / Non-visit Dr. Canelo Myers MD [facility] Work Phone: Start: 05-01-2025 Dr. [facility] Work Phone: Start: 04-30-2025 Non-patient / Non-visit Dr. Canelo Myers MD [facility] Work Phone: Start: 04-30-2025 Dr. Canelo Myers MD [facility] Work Phone: Start: 04-29-2025 Non-patient / Non-visit Dr. Canelo Myers MD [facility] Work Phone: Start: 04-29-2025 Dr. Canelo Myers MD [facility] Work Phone: Start: 04-28-2025 Non-patient / Non-visit Dr. Canelo Myers MD [facility] Work Phone: Start: 04-28-2025 Dr. Canelo Myers MD [facility] Work Phone: Start: 04-27-2025 Non-patient / Non-visit Dr. Canelo Myers MD [facility] Work Phone: Start: 04-27-2025 Dr. Canelo Myers MD [facility] Work Phone: Start: 04-26-2025 Non-patient / Non-visit Dr. Julius Moncada MD [facility] Work Phone: Start: 04-26-2025 ambulatory Canelo Myers Facility:[facility] Start: 04-26-2025 End: 05-06-2025 Evaluation and management of inpatient Dr. Julius Moncada MD -[facility] Work Phone: Start: 04-26-2025 End: 05-06-2025 Dr. Mao Becker DO -Medical Surgical 3 Work Phone: Start: 04-11-2025 End: 04-12-2025 Dr. Francisco Colon MD -Emergency Departmen t Work Phone: Start: 04-11-2025 End: 04-12-2025 Emergency department patient visit Abisia Haley MD Work Phone: -Emergency Department Work Phone: Start: 04-04-2025 End: 04-04-2025 Dr. Imani Knight DO -Emergency Departme nt Work Phone: Start: 04-04-2025 End: 04-04-2025 Emergency department patient visit Abisai Haley MD Work Phone: -Emergency Department Work Phone: Start: 01-03-2025 ambulatory [facility] Facility:[facility] Start: 11-12-2024 End: 11-12-2024 Emergency department patient visit [facility] Facility:[facility] Start: 10-09-2024 End: 10-09-2024 ambulatory [facility] Facility:[facility] Start: 09-25-2024 End: 09-25-2024 ambulatory [facility] Facility:[facility] Start: 08-28-2024 End: 08-28-2024 ambulatory [facility] Facility:[facility] Start: 04-22-2024 End: 04-22-2024 ambulatory [facility] Facility:[facility] Start: 04-22-2024 End: 04-22-2024 Patient encounter procedure Aretha Schofield APRN.CNP Work Phone: [facility] Comment on above: Sinus congestion (Pr imary Dx); Wheezing; Nausea Start: 03-22-2024 End: 03-22-2024 Patient encounter procedure DO Milana Garcia Work Phone: [facility] Work Phone: Start: 03-21-2024 End: 03-21-2024 ambulatory DO Milana Garcia Work Phone: [facility] Work Phone: Start: 03-21-2024 End: 03-21-2024 Patient encounter procedure DO Milana Garcia Work Phone: [facility] Start: 01-24-2024 End: 01-24-2024 Emergency department patient visit DO [facility] Start: 10-19-2023 End: 10-19-2023 Patient encounter procedure DO Milana Garcia Work Phone: [facility] Work Phone: Start: 10-15-2023 End: 10-15-2023 ambulatory DO Milana Garcia Work Phone: [facility] Work Phone: Start: 10-15-2023 End: 10-15-2023 Patient encounter procedure DO Milana Garcia Work Phone: [facility] Work Phone: Start: 10-10-2023 End: 10-10-2023 Emergency department patient visit DO Milana Garcia [facility] Start: 09-27-2023 End: 09-27-2023 Patient encounter procedure DO Milana Garcia Work Phone: [facility] Work Phone: Start: 09-15-2023 End: 09-15-2023 Patient encounter procedure DO Milana Garcia Work Phone: [facility] Work Phone: Start: 08-25-2023 End: 08-25-2023 ambulatory DO Milana Garcia Work Phone: [facility] Work Phone: Start: 08-25-2023 End: 08-25-2023 Patient encounter procedure DO Milana Garcia Work Phone: [facility] Work Phone: Start: 08-25-2023 End: 08-25-2023 Patient encounter procedure DO Milana Garcia Work Phone: [facility] Work Phone: Start: 08-23-2023 End: 08-23-2023 Emergency department patient visit DO Mil[facility] Start: 07-29-2023 End: 07-29-2023 Emergency department patient visit DO Milana Garcia [facility] Start: 07-19-2023 End: 07-19-2023 ambulatory DO Milana Gacria Work Phone: [facility] Work Phone: Start: 07-19-2023 End: 07-19-2023 Patient encounter procedure DO Milana Garcia Work Phone: [facility] Work Phone: Start: 07-01-2023 End: 07-01-2023 Patient encounter procedure DO Milana Garcia Work Phone: [facility] Work Phone: Start: 05-25-2023 Registered Referred DO Milana Garcia [facility] Work [facility]: Start: 05-24-2023 End: 05-25-2023 Emergency department patient visit DO Milana Garcia Work Phone: [facility]Emergency Department Start: 05-20-2023 End: 05-20-2023 Patient encounter procedure DO Milana Garcia Work Phone: [facility] Start: 05-19-2023 End: 05-19-2023 ambulatory DO Milana Garcia Work Phone: [facility] Work Phone: Start: 05-19-2023 End: 05-19-2023 Patient encounter procedure DO Milana Garcia Work Phone: [facility] Start: 05-04-2023 End: 05-05-2023 Emergency department patient visit DO Mil[facility] Start: 04-11-2023 Non-patient / Non-visit DO Milana Christensennger Work Phone: [facility] Start: 04-10-2023 End: 04-10-2023 Non-patient / Non-visit DO Milana Garcia Work Phone: [facility] Start: 04-10-2023 End: 04-11-2023 Evaluation and management of inpatient DO Milana Garcia Work Phone: [facility] Start: 04-09-2023 End: 04-09-2023 Patient encounter procedure DO Milana Garcia Work Phone: [facility] Start: 03-22-2023 End: 03-22-2023 Emergency department patient visit DO Milana Garcia Work Phone: [facility]Emergency [facility] Start: 02-12-2023 End: 02-12-2023 Patient encounter procedure DO Milana Christensennger Work Phone: [facility] Start: 01-21-2023 End: 01-21-2023 Emergency department patient visit Dr. Calvin Waldrop Work Phone: [facility]Emergency Department Start: 11-19-2022 Non-patient / Non-visit Dr. Calvin Waldrop Work Phone: [facility] Start: 11-19-2022 Non-patient / Non-visit Dr. Calvin Waldrop Work Phone: [facility] Start: 11-18-2022 Non-patient / Non-visit Dr. Calvin Waldrop Work Phone: [facility] Start: 11-18-2022 Non-patient / Non-visit Dr. Calvin Waldrop Work Phone: [facility] Start: 11-18-2022 End: 11-19-2022 Evaluation and management of inpatient Dr. Calvin Waldrop Work Phone: [facility] Start: 10-31-2022 End: 10-31-[address] Calvin Waldrop Work Phone: [facility] Start: 10-07-2022 End: 10-07-[address] Calvin Waldrop Work Phone: [facility] Start: 09-05-2022 End: 09-06-2022 Emergency [facility] Start: 07-21-2022 End: 07-21-2022 Subsequent hospital visit by physician [facility] Work Phone: Radiology Comment on above: Hip pain, acute, lef t [M25.552] Start: 07-21-2022 End: 07-21-2022 Patient encounter procedure Samantha Deleon APRN.CNP Work Phone: [facility] Comment on above: Hip pain, acute, lef t (Primary Dx) Start: 05-31-2022 End: 05-31-2022 Patient encounter procedure Calvin Waldrop [facility] Start: 02-22-2022 End: 02-22-2022 Emergency department patient visit [facility] Start: 06-10-2021 End: 06-10-2021 Emergency department patient visit Noe Engel [facility] Emergency 07 Procedures Date Procedure Procedure [...] 08-13-2025 Serum inorganic phos phate measurement Abisai Halye MD Work Phone: Start: 08-12-2025 Urine microscopy: [...] 05-02-2025 Serum inorganic phos phate measurement Abisai Haely MD Work Phone: Start: 04-28-2025 Triacylglycerol lipa [...] Start: 04-04-2025 Platelet mean volume determination Abisai Hlaey MD Work Phone: Start: 04-04-2025 Triacylglycerol lipa [...] unilateral with pelvis 2-3 views 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 Phone: Start: 02-22-2022 Plain chest X-ray Start: 06-21-2020 Mammography Samantha Ri ggs H[employer] F[employer]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 Phone: Start: 09-11-2015 Colonoscopy Samantha Ri ggs H[employer] FUR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 Phone: Bacteria identified in Blood by Culture DO Milana Garcia Work Phone: Plan of Treatment Date Care Activity Detail Author Start: 03-03-2034 Urine microalbumin profile DTaP,Tdap,Td Vaccine (3 - Td or Tdap) [facility] Start: 08-15-2025 Patient discharge [facility] Start: 08-15-2025 Inhalation therapy procedure [facility] Start: 08-14-2025 [facility] Start: 08-13-2025 End: 08-14-2025 [facility] Start: 08-13-2025 Application of intermittent pneumatic compression device [facility] Start: 08-13-2025 Consultation [facility] Start: 08-13-2025 Care regimes management [facility] Start: 08-13-2025 Notification of physician [facility] Start: 08-13-2025 Speech therapy assessment [facility] Start: 08-12-2025 Following clinical pathway protocol [facility] Start: 08-12-2025 Assessment of risk of venous thromboembolism [facility] Start: 08-12-2025 Care regimes management [facility] Start: 08-12-2025 Insertion of catheter into peripheral vein [facility] Start: 08-12-2025 Lab findings surveillance [facility] Start: 08-12-2025 Measuring intake and output [facility] Start: 08-12-2025 Nil by mouth [facility] Start: 08-12-2025 Notification of physician [facility] Start: 08-12-2025 Oxygen therapy [facility] Start: 08-12-2025 Providing care according to standard [facility] Start: 08-12-2025 Vital signs measurements [facility] Start: 08-12-2025 Streptococcus pyogenes rRNA [Presence] in Throat by Probe [facility] Start: 08-12-2025 Serum inorganic phosphate measurement [facility] Start: 08-12-2025 Urinalysis complete panel - Urine [facility] Start: 08-12-2025 End: 08-12-2025 [facility] Start: 08-12-2025 Verification routine [facility] Start: 08-12-2025 Admission procedure [facility] Start: 08-12-2025 Hospital admission, emergency, from emergency room, medical nature [facility] Start: 08-12-2025 Patient referral to dietitian [facility] Start: 07-20-2025 Patient discharge [facility] Start: 07-18-2025 [facility] Start: 07-17-2025 End: 07-18-2025 [facility] Start: 07-17-2025 Following clinical pathway protocol [facility] Start: 07-17-2025 Ambulation without limitation [facility] Start: 07-17-2025 Assessment of risk of venous thromboembolism [facility] Start: 07-17-2025 Care regimes management [facility] Start: 07-17-2025 Insertion of catheter into peripheral vein [facility] Start: 07-17-2025 Measuring intake and output [facility] Start: 07-17-2025 Notification of physician [facility] Start: 07-17-2025 Oxygen therapy [facility] Start: 07-17-2025 Providing care according to standard [facility] Start: 07-17-2025 Vital signs measurements [facility] Start: 07-17-2025 Prothrombin time [facility] Start: 07-17-2025 Verification routine [facility] Start: 07-17-2025 Hospital admission, emergency, from emergency room, medical nature [facility] Start: 07-17-2025 Admission procedure [facility] Start: 07-17-2025 [facility] Start[facility] 07-17-2025 [facility] Start: 05-28-2025 Patient discharge [facility] Start: 05-26-2025 [facility] Start: 05-25-2025 Assessment of risk of venous thromboembolism [facility] Start: 05-25-2025 Care regimes management [facility] Start: 05-25-2025 Inhalation therapy procedure [facility] Start: 05-25-2025 Introduction of urinary catheter [facility] Start: 05-25-2025 Notification of physician [facility] Start: 05-25-2025 Oxygen therapy [facility] Start: 05-25-2025 Provision of activity privileges [facility] Start: 05-25-2025 Referral to service [facility] Start: 05-25-2025 Vital signs measurements [facility] Start: 05-25-2025 End: 05-25-2025 [facility] Start: 05-25-2025 Following clinical pathway protocol [facility] Start: 05-25-2025 Hospital admission, emergency, from emergency room, medical nature [facility] Start: 05-25-2025 Verification routine [facility] Start: 05-25-2025 Admission procedure [facility] Start: 05-06-2025 Patient discharge [facility] Start: 05-05-2025 Inhalation therapy procedure [facility] Start: 05-01-2025 Referral for physical therapy [facility] Start: 05-01-2025 Referral to occupational therapist [facility] Start: 05-01-2025 Referral to service [facility] Start: 04-29-2025 Oxygen therapy [facility] Start: 04-28-2025 Assessment of risk of venous thromboembolism [facility] Start: 04-28-2025 Notification of physician [facility] Start: 04-28-2025 Vital signs measurements [facility] Start: 04-27-2025 [facility] Start: 04-27-2025 Hepatic function panel [facility] Start: 04-27-2025 Prothrombin time [facility] Start: 04-27-2025 Serum inorganic phosphate measurement [facility] Start: 04-27-2025 Thyroid stimulating hormone measurement [facility] Start: 04-26-2025 Following clinical pathway protocol [facility] Start: 04-26-2025 End: 04-26-2025 [facility] Start: 04-26-2025 Care regimes management [facility] Start: 04-26-2025 Notification of physician [facility] Start: 04-26-2025 Admission procedure [facility] Start: 04-26-2025 Ambulation without limitation [facility] Start: 04-26-2025 Assessment of risk of venous thromboembolism [facility] Start: 04-26-2025 Insertion of catheter into peripheral vein [facility] Start: 04-26-2025 Providing care according to standard [facility] Start: 04-26-2025 Verification routine [facility] Start: 04-26-2025 Hospital admission, emergency, from emergency room, medical nature [facility] Start: 04-26-2025 Patient referral to dietitian [facility] Start: 04-12-2025 [facility] Start: 04-11-2025 [facility] Start: 04-05-2025 [facility] Start: 04-04-2025 [facility] Start: 04-04-2025 End: 04-04-2025 [facility] Start: 07-30-2024 Covid-19 Vaccine () Covid-19 Vaccine () [facility] Start: 07-30-2024 Influenza vaccination [facility] Start: 06-07-2024 Hepatitis B Vaccine (3 of 3 - Hep B Twinrix 3-dose series) Hepatitis B Vaccine (3 of 3 - Hep B Twinrix 3-dose series) [facility] Start: 03-22-2024 Patient referral [facility] Work Phone: Start: 01-24-2024 [facility] Start: 01-24-2024 End: 01-24-2024 [facility] Start: 10-26-2023 HPV TESTING HPV TESTING [facility] Start: 10-26-2023 PAP TESTING PAP TESTING [facility] Start: 10-26-2023 Screening for malignant neoplasm of cervix [facility] Start: 10-15-2023 Elastase, pancreatic (el-1), fecal; quantitative [facility] Start: 10-10-2023 [facility] Start: 10-10-2023 [facility] Start: 09-26-2023 Urine microalbumin profile DTAP,TDAP,TD (2 - Td or Tdap) [facility] Start: 07-29-2023 [facility] Start: 05-24-2023 [facility] Start: 05-04-2023 [facility] Start: 04-11-2023 Patient discharge [facility] Start: 04-10-2023 Following clinical pathway protocol [facility] Start: 04-10-2023 Ambulation without limitation [facility] Start: 04-10-2023 Assessment of risk of venous thromboembolism [facility] Start: 04-10-2023 Care regimes management [facility] Start: 04-10-2023 Inhalation therapy procedure [facility] Start: 04-10-2023 Insertion of catheter into peripheral vein [facility] Start: 04-10-2023 Measuring intake and output [facility] Start: 04-10-2023 Notification of physician [facility] Start: 04-10-2023 Providing care according to standard [facility] Start: 04-10-2023 Tobacco use cessation education [facility] Start: 04-10-2023 [facility] Start: 04-10-2023 Electrocardiographic procedure [facility] Start: 04-10-2023 Verification routine [facility] Start: 04-10-2023 Admission procedure [facility] Start: 04-10-2023 End: 04-10-2023 Blood culture [facility] Start: 01-21-2023 [facility] Start: 11-19-2022 Patient referral [facility] Work Phone: Start: 11-19-2022 Patient discharge [facility] Start: 11-19-2022 Notification of physician [facility] Start: 11-19-2022 Patient education [facility] Start: 11-19-2022 Pulse taking [facility] Start: 11-19-2022 Taking patient vital signs [facility] Start: 11-19-2022 Wound care [facility] Start: 11-19-2022 [facility] Start: 11-19-2022 Catheterization of left heart [facility] Work Phone: Start: 11-18-2022 Assessment of risk of venous thromboembolism [facility] Start: 11-18-2022 Care regimes management [facility] Start: 11-18-2022 Insertion of catheter into peripheral vein [facility] Start: 11-18-2022 Measuring intake and output [facility] Start: 11-18-2022 Providing care according to standard [facility] Start: 11-18-2022 Referral to research archaeologist [facility] Start: 11-18-2022 [facility] Start: 11-18-2022 Following clinical pathway protocol [facility] Start: 11-18-2022 Catheterization of vein [facility] Start: 11-18-2022 Medication not administered [facility] Start: 11-18-2022 Notification of physician [facility] Start: 11-18-2022 Preoperative care [facility] Start: 11-18-2022 [facility] Start: 11-18-2022 Admission procedure [facility] Start: 10-07-2022 Patient referral [facility] Work Phone: Start: 07-30-2022 Influenza vaccination INFLUENZA (#1) [facility] Start: 2022 COLOGUARD (FIT-DNA) COLOGUARD (FIT-DNA) [facility] Start: 2022 Colonoscopy COLONOSCOPY [facility] Start: 2022 COLORECTAL CANCER SCREENING COLORECTAL CANCER SCREENING [facility] Start: [address] COLONOGRAPHY [facility] Start: 2022 FECAL OCCULT BLOOD FECAL OCCULT BLOOD [facility] Start: 2022 Screening for malignant neoplasm of colon [facility] Start: 2022 SIGMOIDOSCOPY SIGMOIDOSCOPY [facility] Start: 07-15-2021 ANNUAL PCP TEAM CHRONIC DISEASE VISIT ANNUAL PCP TEAM CHRONIC DISEASE VISIT [facility] Start: 07-03-2021 Screening for malignant neoplasm of breast Mammogram Screening [facility] Start: 06-21-2021 Hepatitis B screening URINE ALBUMIN:CREATININE RATIO [facility] Start: 06-21-2021 Hepatitis B surface antibody level LDL CHOLESTEROL [facility] Start: 06-21-2021 Mammography MAMMOGRAM [facility] Start: 05-19-2021 COVID-19 VACCINE (3 - Booster for Pfizer series) COVID-19 VACCINE (3 - Booster for Pfizer series) [facility] Start: 11-19-2020 Hemoglobin A1c measurement HbA1C [facility] Start: 11-19-2020 Hemoglobin A1c/Hemoglobin.total in Blood HBA1C [facility] Start: 07-19-2020 3 comp foot exam [facility] Start: 07-19-2020 Diabetic foot examination Diabetic Foot Exam [facility] Start: 12-26-2019 Glaucoma screening Dilated Retinal Exam [facility] Start: 12-26-2019 Hepatitis C antibody, confirmatory test DILATED RETINAL EXAM [facility] Start: 10-20-2014 PNEUMOCOCCAL (2 - PCV) PNEUMOCOCCAL (2 - PCV) [facility] Start: 1995 Anxiety Screening Anxiety Screening [facility] Start: 1995 BP CONTROLLED (<130/80) BP CONTROLLED (<130/80) [facility] Start: 1995 HEPATITIS C SCREENING HEPATITIS C SCREENING [facility] Start: 1995 Hepatitis C screening Hepatitis C Screening [facility] Start: 1995 HIV SCREENING HIV SCREENING [facility] Start: 1995 HIV screening HIV Screening [facility] Start: 1977 HEPATITIS B (1 of 3 - 3-dose series) HEPATITIS B (1 of 3 - 3-dose series) [facility] Alanine aminotransfe rase [Enzymatic activity/volume] in Serum or Plasma [facility] Albumin [Mass/volume ] in Serum or Plasma [facility] Alkaline phosphatase [Enzymatic activity/volume] in Serum or Plasma [facility] Anion gap in Serum or Plasma [facility] Bacteria identified in Blood by Culture Blood Culture [facility] Bilirubin, total measurement [facility] Bilirubin.direct [Ma ss/volume] in Serum or Plasma [facility] BUN/Creatinine ratio [facility] Calcium [Mass/volume ] in Serum or Plasma [facility] Carbon dioxide, tota l [Moles/volume] in Central venous blood [facility] Cardiac event recording [facility] Creatinine [Mass/vol ume] in Serum or Plasma [facility] Erythrocyte mean cor puscular volume determination [facility] Fat [Mass/mass] in Stool [facility] Fat.neutral [Presenc e] in Stool [facility] Glucose [Mass/volume ] in Serum or Plasma [facility] Hematocrit [Volume F raction] of Blood [facility] Hemoglobin [Mass/vol ume] in Blood [facility] Hemoglobin A1c/Hemoglobin.total in Blood [facility] INR in Blood by Coag ulation assay [facility] INR in Blood by Coag ulation assay [facility] Lactic acid measurement [facility] Leukocytes [#/volume] in Blood [facility] Magnesium measurement [facility] Mean corpuscular hem oglobin concentration determination [facility] Mean corpuscular hem oglobin determination [facility] Measurement of renal function [facility] Neutrophil count [facility] Neutrophil percent differential count [facility] Patient Education [facility] Work Phone: Patient referral [facility] Work Phone: Platelets [#/volume] in Blood [facility] Potassium measurement [facility] Red blood cell count [facility] Red cell distributio n width determination [facility] Serum chloride measurement [facility] Sodium measurement [facility] Total protein measurement [facility] Troponin T.cardiac [Mass/volume] in Serum or Plasma by High sensitivity method [facility] Urea nitrogen [Mass/ volume] in Serum or Plasma [facility] Immunizations Immunization Date Immunization Notes Care Provider Juany griffith 10-16-2022 influenza virus vacc ine, unspecified formulation Aretha Schofield HOT AIR FUR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 Phone: [facility] 09-16-2018 influenza, injectabl e, quadrivalent, contains preservative 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.[facility] Work Phone: [facility] Work Phone: 11-19-2015 influenza, injectabl e, quadrivalent, contains preservative 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.[facility] Work Phone: [facility] 10-02-2014 influenza, seasonal, injectable 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 Work Phone: 09-27-2013 pneumococcal vaccine , unspecified formulation Dr. 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 Phone: [facility] Work Phone: 09-15-2013 influenza, injectabl e, quadrivalent, preservative free DO Milana Garcia Work Phone: [facility] 09-15-2013 influenza, seasonal, injectable [facility] Payers Date Payer Category Payer Self-pay 2022 Unknown 2020 Unknown [id number] 2017 Unknown [id number] Private Health Insurance [facility] [id number] Self-pay [id number] Unknown [id number] Unknown [id number] Unknown [id number] 2.16.840.1.405022.3.579.2.4 62 Unknown [id number] 2.16.840.1.326259.3.579.2.4 62 Unknown [id number] 2.16.840.1.013292.3.579.2.4 62 Unknown [id number] 2.16.840.1.110091.3.579.2.4 62 Unknown [id number] 2.16.840.1.837621.3.579.2.4 62 Unknown [id number] 2.16.840.1.803578.3.579.2.4 62 Unknown [id number] 2.16.840.1.927479.3.579.2.4 62 Unknown [id number] 2.16.840.1.185290.3.579.2.4 62 Unknown [id number] 2.16.840.1.555525.3.579.2.4 62 Unknown [id number] 2.16.840.1.439853.3.579.2.4 62 Unknown [id number] 2.16.840.1.026091.3.579.2.4 62 Unknown [id number] 2.16.840.1.134042.3.579.2.4 62 Unknown [id number] 2.16.840.1.748719.3.579.2.4 62 Unknown [id number] 2.16.840.1.074778.3.579.2.4 62 Unknown [id number] 2.16.840.1.234635.3.579.2.4 62 Unknown [id number] 2.16.840.1.152955.3.579.2.4 62 Unknown [id number] 2.16.840.1.674106.3.579.2.4 62 Unknown [id number] 2.16.840.1.092140.3.579.2.4 62 Unknown [id number] 2.16.840.1.644801.3.579.2.4 62 Unknown [id number] 2.16.840.1.629354.3.579.2.4 62 Unknown [id number] 2.16.840.1.444549.3.579.2.4 62 Unknown [id number] 2.16.840.1.509188.3.579.2.4 62 Unknown [id number] 2.16.840.1.645242.3.579.2.4 62 Unknown [id number] 2.16.840.1.056198.3.579.2.4 62 Unknown [id number] 2.16.840.1.636268.3.579.2.4 62 Unknown [id number] 2.16.840.1.189777.3.579.2.4 62 Unknown [id number] 2.16.840.1.064093.3.579.2.4 62 Unknown [id number] 2.16.840.1.538467.3.579.2.4 62 Unknown [id number] 2.16.840.1.810795.3.579.2.4 62 Unknown [id number] 2.16.840.1.707231.3.579.2.4 62 Unknown [id number] 2.16.840.1.042754.3.579.2.4 62 Unknown [id number] 2.16.840.1.874563.3.579.2.4 62 Unknown [id number] 2.16.840.1.624221.3.579.2.4 62 Unknown [id number] 2.16.840.1.695965.3.579.2.4 62 Unknown [id number] 2.16.840.1.599223.3.579.2.4 62 Social History Date Type Detail Facility [facility] Start: 02-22-2022 End: 01-24-2024 Tobacco smoking consumption unknown [facility] Start: 04-14-2021 Sober [facility] Start: 04-14-2021 None [facility] Start: 04-14-2021 Cigarettes [facility] Start: 1975 Sex Assigned At Female C [facility] Start: 07-21-2022 [facility] Start: 11-29-1996 End: 07-11-2020 History of tobacco use Current smoker [facility] Start: 11-29-1996 End: 07-11-2020 History of tobacco use Cigarette Smoker [facility] Start: 11-04-2020 End: 07-21-2022 Cigarettes smoked current (pack per day) - Reported 0.5 [facility] Start: 07-21-2022 Tobacco use and exposure Smokeless tobacco non-user [facility] Start: 07-21-2022 End: 04-22-2024 Alcohol intake Current drinker of alcohol (finding) [facility] Start: 06-05-2020 End: 08-01-2020 History SDOH Alcohol Frequency 3 [facility] Start: 06-05-2020 End: 08-01-2020 History SDOH Alcohol Std Drinks 1 [facility] Start: 06-05-2020 End: 08-01-2020 History SDOH Alcohol Binge 2 [facility] Start: 09-16-2018 History SDOH 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 [facility] Start: 01-15-2020 History SDOH Social Connections Living 8 [facility] Start: 06-05-2020 History SDOH Physica l Activity DPW 0 [facility] Start: 07-01-2020 History SDOH Financial 5 [facility] Start: 01-14-2020 Education 12 [facility] Start: 07-21-2022 Tobacco Comment stopped 3 weeks ago [facility] Start: 09-26-2014 With Family [facility] Start: 06-05-2020 End: 11-04-2020 Social connection and isolation panel [facility] Frequency of Communication with Friends and Family Not on file [facility] Do you belong to any clubs or organizations such as voodoo groups, unions, fraternal or athletic groups, or school groups? No [facility] How often to you hav e a drink containing alcohol? 2-4 times a month [facility] How many standard drinks containing alcohol do you have on a typical day? 1 or 2 [facility] How often do you hav e 6 or more drinks on 1 occasion? Less than monthly [facility] Do you feel stress - tense, restless, nervous, or anxious, or unable to sleep at night because your mind is troubled all the time - these days [OSQ] To some extent [facility] (I/We) worried mary er (my/our) food would run out before (I/we) got money to buy more. Never true [facility] Start: 07-15-2020 Gender identity Identifies as female gender (finding) [facility] Start: 07-15-2020 Sexual orientation Heterosexual (chucky acevedo) [facility] Start: 04-04-2025 Tobacco smoking stat us MSIS Current some day smoker [facility] Start: 04-11-2025 End: 08-13-2025 Tobacco smoking status NHIS Current Light tobacco smoker [facility] NEGATED: Highlighted row [facility] NEGATED: Highlighted row Not [facility] Goals Date Patient Goal Desired Activity /State Functional Status Date Assessment Result Facility 08-15-2025 Functional status Ambulates [facility] Work Phone: 07-20-2025 Functional status Up ad seble [facility] Work Phone: 05-28-2025 Functional status Ambulates;Up ad seble [facility] Work Phone: 05-27-2025 Functional status None [facility] Work Phone: 05-06-2025 Functional status Bathroom Privilege [facility] Work Phone: 04-11-2023 Functional status Activity Ability Indepe ndent [facility] Work Phone: 04-11-2023 Functional status Ambulates;Bathroom Priv ilege [facility] Work Phone: 11-19-2022 Functional status Ambulates [facility] Work Phone: 11-18-2022 Functional status Assistive Devices None [facility] Work Phone: Mental Status Date Assessment Result Facility 08-15-2025 Cognitive function Appropriate [facility] Work Phone: 08-15-2025 Cognitive function Voice/Name [facility] Work Phone: 08-12-2025 Cognitive function Voice/Name [facility] Work Phone: 07-19-2025 Cognitive function Voice/Name [facility] Work Phone: 05-28-2025 Cognitive function Voice/Name [facility] Work Phone: 05-06-2025 Cognitive function Voice/Name [facility] Work Phone: 04-11-2025 Cognitive function Voice/Name [facility] Work Phone: 01-24-2024 Cognitive function Voice/Name [facility] Work Phone: 10-10-2023 Cognitive function Level Of Cons ciousness Awake;Alert;Appropriate [facility] Work Phone: 07-29-2023 Cognitive function Level Of Cons ciousness Awake;Alert;Appropriate;Follow s Commands [facility] Work Phone: 05-24-2023 Cognitive function Voice/Name [facility] Work Phone: 05-04-2023 Cognitive function Level Of Cons ciousness Awake;Alert;Appropriate [facility] Work Phone: 04-11-2023 Cognitive function Voice/Name [facility] Work Phone: 04-09-2023 Cognitive function Level Of Cons ciousness Awake;Alert;Appropriate;Follow s Commands [facility] Work Phone: 03-22-2023 Cognitive function Level Of Cons ciousness Awake;Alert;Appropriate;Follow s Commands [facility] Work Phone: 01-21-2023 Cognitive function Voice/Name [facility] Work Phone: 11-19-2022 Cognitive function Voice/Name [facility] Work Phone: 09-05-2022 Cognitive function Level Of Cons ciousness Awake;Alert;Appropriate [facility] Work Phone: 02-22-2022 Cognitive function Level Of Cons ciousness Awake;Alert;Appropriate;Follow s Commands;Responds to vocal stimuli [facility] Work Phone: Clinical Notes 07-17-2019 to 08-15-2025 Note Date & Type Note Facility 08-15-2025 Discharge summary Note Date/Time August 15, 2025 3:02pm [facility] Medical Records Department [address] [place], [place] [address] [address] Discharge Summary 08/15/25 1455 MR#: [id number] Acct: [id number] Name: JOSEPH RINCON Rep #:[id number] : 1975 50 From: Zev Zhang PCP: Dr. Abisai Haley MD Status:[facility] Prov[facility] Date of Admission: 08/12/25 [...] closed x 2. Repeat bicarb is 26.5. [id number]. 08/15: Acid-base disorder resolved. 3. Acute on [...] is evidenced by: 10% unintentional weight loss. 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 DVT prophylaxis: Patient has intermittent thrombocytopenia [...] Freq: Status: Active Protocol: Document 08/13/25 09:43 [facility] (Rec: 08/13/25 09:43 SLA [id number]) Nutrition Malnutrition Evidence of Yes Malnutrition Exists Clinical Problem Acute Disease or Injury Related Malnutrition Etiology Pt with gi dysfunction w/ n/v guard captain and po intake inadequate to meet estimated nutritional needs Signs/Symptoms evidenced by n/v guard captain x 24 hours and po intake meeting < 75% of est nutritional needs x 2 wks guard captain, also w/ 18.3 % unplanned wt loss x 9 mo and 8.1% unplanned wt loss x < 1 month guard captain - sig for malnutrition. Status Active [...] Self Care Charges/Coding Visit Charges Inpatient E&M: 81003 Disch Hosp >30min 08/15/25 1502 <Electronically signed by Zev Tucker MD> Cosigner Signature (if applicable): CC: Dr. Abisai Haley MD; Dr. Zev Tucker MD~ Signed [facility] Work Phone: 1(475) 586-340509-17-2025 Discharge summary Author Zev Tucker [facility] Note Date/Time August 15, 2025 2:55pm [facility] Medical Records Department [address] [place] [address] Instructions for Home/Discharge Instructions 08/15/25 1447 MR#: [id number] Acct: [id number] Name: JOSEPH RINCON Rep #:[id number] : 1975 50 From: Zev Zhang PCP: [...] MD; Dr. Praful Olivo MD ~ Signed [facility] Work Phone: 1(161) 765-873409-17-2025 Procedure [facility] 08-15-2025 Progress note Author [facility] Note Date/Time August 15, 2025 1:45pm [facility] Medical Records Department [address] [place] [address] Progress Note - Infect Disease 08/15/25 1344 MR#: [id number] Acct: [id number] Name: JOSEPH RINCON Rep #:[id number] : 1975 50 From: Praful katz MD PCP: Dr. Abisai Haley MD Status:ADM IN Location: [place] [address] Physical Exam Narrative Feeling better, less nausea [...] Cosigner Signature (if applicable): CC: ~ Signed [facility] Work Phone: 1(233) 334-321109-17-2025 [facility]09-16-2025 Progress note Author Zev Tucker [facility] Note Date/Time August 14, 2025 2:11pm [facility] Medical Records Department [address] [place] [address] Progress Note - Hospitalist 08/14/25 1400 MR#: [id number] Acct: [id number] Name: JOSEPH RINCON Rep #:[id number] : 1975 50 From: Zev Zhang PCP: Dr. Abisai Haley MD Status:ADM IN Location: [place] [address] 1 Reason for Visit Chief Complaint: Persistent [...] 08/13/25 09:43 YASEMIN (Rec: 08/13/25 09:43 SLA [id number]) Nutrition Malnutrition Evidence of Yes Malnutrition Exists Clinical Problem Acute Disease or Injury Related Malnutrition Etiology Pt with gi dysfunction w/ n/v guard captain and po intake inadequate to meet estimated nutritional needs Signs/Symptoms evidenced by n/v guard captain x 24 hours and po intake meeting < 75% of est nutritional needs x 2 wks guard captain, also w/ 18.3 % unplanned wt loss x 9 mo and 8.1% unplanned wt loss x < 1 month guard captain - sig for malnutrition. Status Active [...] closed x 2. Repeat bicarb is 26.5. Pjxvfvxv179. 3. Acute on chronic recurrent alcoholic pancreatitis: [...] is evidenced by: 10% unintentional weight loss. 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 DVT prophylaxis: Patient has intermittent thrombocytopenia [...] shock if needed Total time spent in nztn-sj-eqwr encounter in discussion of advanced directive 17 [...] 223 H Charges/Coding Visit Charges Inpatient E&M: 40631 Subs Hosp L2 08/14/25 1411 <Electronically signed by Zev Tucker MD> Cosigner Signature (if applicable): CC: ~ Signed [facility] Work Phone: 1(117) 250-533309-16-2025 Consult note Author Praful Olivo [facility] Note Date/Time August 14, 2025 10:24am [facility] Medical Records Department [address] [place] [address] Consultation - Infectious Dx 08/14/25 1020 MR#: [id number] Acct: [id number] Name: JOSEPH RINCON Rep #:[id number] : 1975 50 From: Praful katz MD PCP: Dr. Abisai Haley MD Status:ADM IN Location: [place] [address] Assessment & Plan Assessment/Plan (1) DKA (diabetic [...] performed and neg except as noted above. [facility] Medical History Admitted to alcohol detoxification [...] 08/13/25 09:43 YASEMIN (Rec: 08/13/25 09:43 SLA [id number]) Nutrition Malnutrition Evidence of Yes Malnutrition Exists Clinical Problem Acute Disease or Injury Related Malnutrition Etiology Pt with gi dysfunction w/ n/v guard captain and po intake inadequate to meet estimated nutritional needs Signs/Symptoms evidenced by n/v guard captain x 24 hours and po intake meeting < 75% of est nutritional needs x 2 wks guard captain, also w/ 18.3 % unplanned wt loss x 9 mo and 8.1% unplanned wt loss x < 1 month guard captain - sig for malnutrition. Status Active [...] applicable): CC: Dr. Abisai Haley MD~ Signed [facility] Work Phone: 1(853) 329-817409-15-2025 Progress note Author [facility] Note Date/Time August 15, 2025 5:41pm [facility] Medical Records Department [address] [place] [address] Progress Note - Hospitalist 08/13/25 1528 MR#: [id number] Acct: [id number] Name: JOSEPH RINCON Salbador Rep #:[id number] : 1975 50 From: Zev Zhang PCP: Dr. Abisai Haley MD Status:ADM IN Location: [place] [address] Hospitalist Note Blood culture prelim positive GNR. Patient leukocytosis improved and no fever. No tachycardia. Continue IV Unasyn. 08/13/25 1528 <Electronically signed by Zev Tucker MD> Cosigner Signature (if applicable): CC: ~ Signed [facility] Work Phone: 1(293) 106-552609-15-2025 Progress note Author [facility] Note Date/Time August 13, 2025 8:33am [facility] Medical Records Department [address] [place] [address] Progress Note - Hospitalist 08/13/25 0823 MR#: [id number] Acct: [id number] Name: JOSEPH RINCON Salbador Rep #:[id number] : 1975 50 From: Zev Zhang PCP: [...] Clarity Clear, Urine pH 6.5, Ur Specific [place] 1.010, Urine Protein 100 H, Urine Glucose [...] 80.1 H, Lymph % (Auto) 13.0 L, Steele % (Auto) 6.0, Eos % (Auto) 0.2, [...] Pancreatitis without phlegmon or pseudocyst. Reading Location: [facility] Physical Exam Narrative Seen and examined. Patient [...] closed x 2. Repeat bicarb is 26.5. Wakjzryl324. 3. Acute on chronic recurrent alcoholic pancreatitis: [...] is evidenced by: 10% unintentional weight loss. 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 DVT prophylaxis: Patient has intermittent thrombocytopenia [...] shock if needed Total time spent in smqi-bw-spvj encounter in discussion of advanced directive 17 [...] Base Excess 0, O2 Saturation 95, ABG xTT019.6 L, ABG pO2 63 L, O2 Delivery [...] 270 H Charges/Coding Visit Charges Inpatient E&M: 55835 Subs Hosp L3 08/13/25 0833 <Electronically signed by Zev Tucker MD> Cosigner Signature (if applicable): CC: ~ Signed [facility] Work Phone: 1(466) 837-279209-14-2025 History and physical note Author Zev Tucker [facility] Note Date/Time August 12, 2025 1:38pm [facility] Medical Records Department [address] [place] [address] H&P Exam - Hospitalist 08/12/25 1302 MR#: [id number] Acct: [id number] Name: JOSEPH RINCON Rep #:[id number] : 1975 50 From: Zev Zhang PCP: [...] fluid leading to metabolic alkalosis. Lipase elevated. [facility] Medical History Admitted to alcohol detoxification [...] Pancreatitis without phlegmon or pseudocyst. Reading Location: [facility] Assessment & Plan Assessment/Plan (1) DKA (diabetic [...] is evidenced by: 10% unintentional weight loss. 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 Abisai Haley MD; Dr. Zev Tucker MD~ Signed [facility] Work Phone: 1(588) 280-630209-14-2025 Discharge summary Author Wellington Rader [facility] Note Date/Time August 12, 2025 1:00pm [facility] Medical Records Department [address] [place] [address] Emergency Department Summary 08/12/25 MR#: [id number] Acct: [id number] Name: JOSEPH RINCON Rep #:[id number] : 1975 50 From: Wellington Rader MD [...] fevers or chills. No known sick contacts. [facility] Medical History Admitted to alcohol [...] Pancreatitis without phlegmon or pseudocyst. Reading Location: [id number] Management Discussion w/another healthcare provider: Hospitalist Critical Care Time Critical Care Time: Yes Critical care time (excluding procedures): 30-74 minutes (41 min), Including time spent:, Discussing w/Patient &/or Family/Flux Tube Attendant, Discussing w/Consultants, Arranging Admission or Transfer and Performing Direct Patient Care at Bedside Discharge Plan Dx/Rx/DC Orders Clinical Impression: Acute on chronic pancreatitis, LUI (acute kidney injury), Hyperglycemia due to type 2 diabetes mellitus, Ketosis Disposition Disposition: Acute Care Hospital [facility] What to do if you have Problems For any increased pain, shortness of breath, bleeding, nausea or vomiting, chestpain, or any unexpected problems, contact your Primary Care Provider. Call [facility] ([phone]) or report to the closest Emergency Room. Call 911 if necessary. 08/12/25 1300 <Electronically signed by Wellington Rader MD> Cosigner Signature (if applicable): CC: Dr. Abisai Haley MD ~ Signed [facility] Work Phone: 1([phone]) 183-366209-14-2025 Radiology Diagnostic [id number] [facility]08-22-2025 Hospital Discharge instructionsAdditional Instructions Date of Discharge: 07/20/25[facility] Work Phone: 1(745) 454-362908-22-2025 Progress note Author Canelo Myers [facility] Note Date/Time July 20, 2025 9: 04am [facility] Medical Records Department [address] [place] [address] Progress Note - Hospitalist 07/20/25 0731 MR#: [id number] Acct: [id number] Name: JOSEPH RINCON Rep #:[id number] : 1975 50 From: Canelo Myers MD PCP: Dr. Abisai Haley MD Status:ADM IN [id number] Reason for Visit Chief Complaint: Abdominal pain [...] % (Auto) 66.7, Lymph % (Auto) 19.5, Steele % (Auto) 11.8 H, Eos % (Auto) [...] 40 minutes Charges/Coding Visit Charges Inpatient E&M: 36647 Subs Hosp L2 07/20/25 0904 <Electronically signed by Canelo Myers MD> Cosigner Signature (if applicable): CC: ~ Signed [facility] Work Phone: 1(110) 743-304208-21-2025 Progress note Author Canelo Myers [facility] Note Date/Time July 19, 2025 9: 41am [facility] Medical Records Department [address] [place] [address] Progress Note - Hospitalist 07/19/25937 MR#: [id number] Acct: [id number] Name: JOSEPH RINCON Rep #:[id number] : 1975 50 From: Canelo Myers MD PCP: Dr. Abisai Haley MD Status:ADM IN Location: [place] [address]-1 Reason for Visit Chief Complaint: Abdominal pain [...] % (Auto) 61.0, Lymph % (Auto) 25.9, Steele % (Auto) 10.3 H, Eos % (Auto) [...] 40 minutes Charges/Coding Visit Charges Inpatient E&M: 57545 Subs Hosp L2 07/19/25 0941 <Electronically signed by Canelo Myers MD> Cosigner Signature (if applicable): CC: ~ Signed [facility] Work Phone: 1(594) 253-414008-20-2025 Progress note Author Canelo Myers [facility] Note Date/Time July 18, 2025 9: 43am [facility] Medical Records Department [address] [place] [address] Progress Note - Hospitalist 07/18/25 0745 MR#: [id number] Acct: [id number] Name: JOSEPH RINCON Rep #:[id number] : 1975 50 From: Canelo Myers MD PCP: Dr. Abisai Haley MD Status:ADM IN Location: [place] [address] Reason for Visit Chief Complaint: Abdominal pain [...] 80.3 H, Lymph % (Auto) 11.2 L, Steele % (Auto) 7.2, Eos % (Auto) 0.3, [...] Clarity Clear, Urine pH 6.5, Ur Specific [place] 1.010, Urine Protein 30 H, Urine Glucose [...] 73.2 H, Lymph % (Auto) 14.1 L, Steele % (Auto) 9.2, Eos % (Auto) 2.4, [...] retroperitoneum related to the pancreatitis. Reading Location: [facility] Physical Exam Narrative GENERAL: cooperative but tremulous [...] 50 minutes Charges/Coding Visit Charges Inpatient E&M: 11819 Subs Hosp L3 07/18/25 0943 <Electronically signed by Canelo Myers MD> Cosigner Signature (if applicable): CC: ~ Signed [facility] Work Phone: 1(205) 613-132208-19-2025 Discharge summary Author Francisco Colon [facility] Note Date/Time July 17, 2025 3: 13pm [facility] Medical Records Department [address] [place] [address] Emergency Department Summary 07/17/25 MR#: [id number] Acct: [id number] Name: JOSEPH RINCON Rep #:[id number] : 1975 50 From: Francisco Colon MD PCP: Dr. Abisai Haley MD Status:ADM IN Location: [facility]-2 HPI HPI - GI History of Present [...] 80.3 H Lymph % (Auto) 11.2 L Steele % (Auto) 7.2 Eos % (Auto) 0.3 [...] Clarity Clear Urine pH 6.5 Ur Specific [place] 1.010 Urine Protein 30 H Urine Glucose [...] retroperitoneum related to the pancreatitis. Reading Location: [facility] Discharge Plan Triage Chief Complaint: Abd Pain [...] MD [Primary Care Provider] - Print Language: [place] Disposition Disposition: Acute Care Hospital [facility] What to do if you have Problems For any increased pain, shortness of breath, bleeding, nausea or vomiting, chestpain, or any unexpected problems, contact your Primary Care Provider. Call [facility] ([phone]) or report to the closest Emergency Room. Call 911 if necessary. 07/17/25 1513 <Electronically signed by Francisco Colon MD> Cosigner Signature (if applicable): CC: Dr. Abisai Haley MD ~ Signed [facility] Work Phone: 1(134) 481-102508-19-2025 History and physical note Author Canelo Myers [facility] Note Date/Time July 17, 2025 1: 22pm [facility] Medical Records Department [address] [place] [address] H&P Exam - Hospitalist 07/17/25 1304 MR#: [id number] Acct: [id number] Name: JOSEPH RINCON Rep #:[id number] : 1975 50 From: Canelo Myers MD PCP: Dr. Abisai Haley MD Status:ADM IN Location: [place] RT292-2 HPI - General General Date of Admission: [...] to regular nursing floor for further manage [facility] Medical History Admitted to alcohol detoxification [...] 80.3 H, Lymph % (Auto) 11.2 L, Steele % (Auto) 7.2, Eos % (Auto) 0.3, [...] Clarity Clear, Urine pH 6.5, Ur Specific [place] 1.010, Urine Protein 30 H, Urine Glucose [...] retroperitoneum related to the pancreatitis. Reading Location: [id number] Assessment & Plan Assessment/Plan (1) Acute alcoholic [...] Multi Select Codes Visit Charges Visit Charges: 47258 Init Hosp L3 07/17/25 1322 <Electronically signed by Canelo Myers MD> Cosigner Signature (if applicable): CC: Dr. Abisai Haley MD; Dr. Canelo Myers MD~ Signed [facility] Work Phone: 1(909) 294-283408-19-2025 Radiology Diagnostic study [facility]06-30-2025 Consult note [facility] Medical Records Department [address] [place] [address] Counseling Note - Pharmacy 05/28/25 1332 MR#: [id number] Acct: [id number] Name: JOSEPH RINCON Rep #:[id number] : 1975 50 From: Sho Leyva PCP: Dr. Abisai Haley MD Status:ADM IN Location: [place] [address] Pharmacy [place] Med Reconciliation Pharmacy Service has performed discharge [...] Signature (if applicable): Date CC: ~ Signed [facility]06-30-2025 Hospital Discharge instructionsAdditional Instructions Follow up with outpatient detox (180) as directed Date of Discharge: 05/28/25[facility] Work Phone: 1(441) 821-873706-30-[address] [facility] Medical Records Department [address] [facility] [place] [address] Discharge Summary 05/28/25 1313 MR#: [id number] Acct: [id number] Name: JOSEPH RINCON Rep #:[id number] : 1975 50 From: Mao Becker DO PCP: Dr. Abisai Haley MD Status:ADM IN [facility] Providers Date of Admission: 05/25/25 Date of Discharge: 05/28/25 Primary Care Physician: Abisai Haley MD Reason For Visit: ETOH DETOXIFICATION, WITHDRAWL Diagnosis Discharge Diagnosis (1) Admitted to alcohol detoxification center: Status: Acute Plan 1. Acute alcohol withdrawal-patient will remain on her present medications, addiction social services designee will talk with the patient #2 hypomagnesemia-magnesium [...] seen in the emergency room at [facility] for alcohol detox. She had been admitted previously only several weeks ago for pancreatitis and alcohol withdrawal and had already gone through the program at that time. Her toxicology screen was positive for barbiturates and benzodiazepines, but alcohol level was 312. [facility] orders were entered using the alcohol detox order set and she was seen by addiction social services designee. Patient had minimal withdrawal symptoms to hospitalization [...] Self Care Charges/Coding Visit Charges Inpatient E&M: 51553 Disch Hosp >30min 05/28/25 1316 Cosigner Signature (if applicable): CC: Dr. Abisai Haley MD; Dr. Mao Becker, ~ Signed [facility]06-30-2025 [facility] Discharge summary [facility] Medical Records Department [address] [place] [address] Instructions for Home/Discharge Instructions 05/28/25 1020 MR#: [id number] Acct: [id number] Name: JOSEPH RINCON Rep #:[id number] : 1975 50 From: Mao Becker DO [...] MD; Dr. Abisai Haley MD ~ Signed [facility]06-30-2025 Discharge summary Author Mao [facility] Note Date/Time May 28, 2025 12:4 9pm [facility] Medical Records Department [address] [place] [address] Instructions for Home/Discharge Instructions 05/28/25 1020 MR#: [id number] Acct: [id number] Name: JOSEPH RINCON Rep #:[id number] : 1975 50 From: Mao Becker DO [...] MD; Dr. Abisai Haley MD ~ Signed [facility] Work Phone: 1(312) 170-131906-29-2025 Progress note Author Mao [facility] Note Date/Time May 27, 2025 3:33 pm [facility] Medical Records Department [address] [place] [address] Progress Note - Hospitalist 05/27/25 1531 MR#: [id number] Acct: [id number] Name: JOSEPH RINCON Rep #:[id number] : 1975 50 From: Mao Becker DO PCP: Dr. Abisai Haley MD Status:ADM IN Location: [facility] NS[facility]-6 Subjective Subjective Patient was seen and examined [...] remain on her present medications, addiction social services designee will talk with the patient #2 hypomagnesemia-magnesium [...] team: 35-minute Charges/Coding Visit Charges Inpatient E&M: 37027 Subs Hosp L2 05/27/25 1533 <Electronically signed by Mao Becker DO> Cosigner Signature (if applicable): CC: ~ Signed [facility] Work Phone: 1(888) 804-785406-29-2025 Progress note [facility] Medical Records Department [address] [place] [address] Progress Note - Hospitalist 05/27/25 1531 MR#: [id number] Acct: [id number] Name: JOSEPH RINCON Rep #:[id number] : 1975 50 From: Mao Becker DO PCP: Dr. Abisai Haley MD Status:ADM IN [facility] Subjective Subjective Patient was seen and examined [...] remain on her present medications, addiction social services designee will talk with the patient #2 hypomagnesemia-magnesium [...] team: 35-minute Charges/Coding Visit Charges Inpatient E&M: 24971 Subs Hosp L2 05/27/25 1533 Cosigner Signature (if applicable): CC: ~ Signed [facility]06-28-2025 Progress note Author Mao Becker [facility] Note Date/Time May 26, 2025 1:39 pm [facility] Medical Records Department [address] [place] [address] Progress Note - Hospitalist 05/26/25 1335 MR#: [id number] Acct: [id number] Name: JOSEPH RINCON Rep #:[id number] : 1975 50 From: Mao Becker DO PCP: Dr. Abisai Haley MD Status:ADM IN [facility] Subjective Subjective Patient was seen and examined [...] remain on her present medications, addiction social services designee will talk with the patient #2 hypomagnesemia-magnesium [...] team: 35-minute Charges/Coding Visit Charges Inpatient E&M: 09964 Subs Hosp L2 05/26/25 1339 <Electronically signed by Mao Becker DO> Cosigner Signature (if applicable): CC: ~ Signed [facility] Work Phone: 1(314) 887-403406-28-2025 Progress note [facility] Medical Records Department [address] [place] [address] Progress Note - Hospitalist 05/26/25 1335 MR#: [id number] Acct: [id number] Name: JOSEPH RINCON Rep #:[id number] : 1975 50 From: Mao Becker DO PCP: Dr. Abisai Haley MD Status:ADM IN Location: [place] HE629-2 Subjective Subjective Patient was seen and examined [...] remain on her present medications, addiction social services designee will talk with the patient #2 hypomagnesemia-magnesium [...] team: 35-minute Charges/Coding Visit Charges Inpatient E&M: 13559 Subs Hosp L2 05/26/25 1331 Cosigner Signature (if applicable): CC: ~ Signed [facility]06-27-2025 Progress note Author Mao [facility] Note Date/Time May 25, 2025 5:[address] [facility] Medical Records Department [address] [place] [address] Progress Note - Hospitalist 05/25/251701 MR#: [id number] Acct: [id number] Name: JOSEPH RINCON Rep #:[id number] : 1975 50 From: Mao Becker DO PCP: Dr. Abisai Haley MD Status:ADM IN Location: [place] [address] Hospitalist Note Patient was seen and examined today, she was admitted for alcohol detox-patient had just been discharged on 05/06/2025 after completing alcohol detox and treatment for pancreatitis. There is a note from addiction social services designee thatstates the patient will follow-up with 180 for outpatient [facility] treatment. 05/25/251703 <Electronically signed by Mao Bekcer DO> Cosigner Signature (if applicable): CC: ~ Signed [facility] Work Phone: 1(489) 216-198706-27-[address] [facility] Medical Records Department [address] [place] [address] Progress Note - Hospitalist 05/25/25 1702 MR#: [id number] Acct: [id number] Name: JOSEPH RINCON Rep #:[id number] : 1975 50 From: Mao Becker DO PCP: Dr. Abisai Hlaey MD Status:ADM IN Location: [place] [address] Hospitalist Note Patient was seen and examined today, she was admitted for alcohol detox-patient had just been discharged on 05/06/2025 after completing alcohol detox and treatment for pancreatitis. There is a note from addiction social services designee thatstates the patient will follow-up with 180 for outpatient [facility] treatment. 05/25/25 170 Cosigner Signature (if applicable): CC: ~ Signed [facility]06-27-2025 Discharge summary Author Andrew Maurice [facility] Note Date/Time May 25, 2025 2:37 am [facility] Medical Records Department [address] [place] [address] Emergency Department Summary 05/25/25 MR#: [id number] Acct: [id number] Name: JOSEPH RINCON Rep #:[id number] : 1975 50 From: Andrew elizondo DO PCP: Dr. Abisai Haley MD Status:ADM IN Location: [place] [address] HPI History of Present Illness Chief Complaint: [...] intact Psych: Cooperative, appropriate mood and affect [facility] Medical History Pancreatitis Hypokalemia Nausea [...] (Auto) 49.9 Lymph % (Auto) 41.1 H Steele % (Auto) 7.7 Eos % (Auto) 0.7 [...] Clarity Clear Urine pH 6.0 Ur Specific [place] 1.015 Urine Protein 30 H Urine Glucose [...] Discharge Plan Disposition Disposition: Acute Care Hospital [facility] Discharge Date/Time: 05/25/25 02:28 What to do if you have Problems For any increased pain, shortness of breath, bleeding, nausea or vomiting, chestpain, or any unexpected problems, contact your Primary Care Provider. Call [facility] ([phone]) or report to the closest Emergency Room. Call 911 if necessary. 05/25/25 0237 <Electronically signed by Andrew Maurice DO> Cosigner Signature (if applicable): CC: Dr. Abisai Haley MD ~ Signed [facility] Work Phone: 1(737) 337-431006-27-2025 History and physical note Author Myra Null [facility] Note Date/Time May 25, 2025 1:54 am [facility] Medical Records Department [address] [place] [address] H&P Exam - Hospitalist 05/25/25 0037 MR#: [id number] Acct: [id number] Name: JOSEPH RINCON Rep #:[id number] : 1975 50 From: Myra Null MD [...] (>1/5 vodka daily) who presents to the [facility] ED on 05/25/25 with history of [...] 1, Zofran 4 mg IV x 1. [facility] Medical History Pancreatitis Hypokalemia Nausea & [...] (>1/5 vodka daily) who presents to the [facility] ED on 05/25/25 with history of [...] admission presentation. Charges/Coding Visit Charges Inpatient E&M: 13611 Init Hosp L3 05/25/25 0154 <Electronically signed by Myra Null MD> Cosigner Signature (if applicable): CC: Dr. Myra Null MD; Dr. Abisai Haley MD~ Signed [facility] Work Phone: 1(172) 896-682406-27-2025 Discharge summary [facility] Medical Records Department [address] [place] [address] Emergency Department Summary 05/25/25 MR#: [id number] Acct: [id number] Name: JOSEPH RINCON Rep #:[id number] : 1975 50 From: Andrew elizondo DO PCP: Dr. Abisai Haley MD Status:ADM IN Location: [place] [address] HPI History of Present Illness Chief Complaint: [...] intact Psych: Cooperative, appropriate mood and affect [facility] Medical History Pancreatitis Hypokalemia Nausea [...] (Auto) 49.9 Lymph % (Auto) 41.1 H Steele % (Auto) 7.7 Eos % (Auto) 0.7 [...] Clarity Clear Urine pH 6.0 Ur Specific [place] 1.015 Urine Protein 30 H Urine Glucose [...] Discharge Plan Disposition Disposition: Acute Care Hospital [facility] Discharge Date/Time: 05/25/25 02:28 What to do if you have Problems For any increased pain, shortness of breath, bleeding, nausea or vomiting, chestpain, or any unexpected problems, contact your Primary Care Provider. Call [facility] ([phone]) or report tothe closest Emergency Room. Call 911 if necessary. 05/25/25 0237 Cosigner Signature (if applicable): CC: Dr. Abisai Haley MD ~ Signed [facility]06-27-2025 History and physical note [facility] Medical Records Department [address] [place] [address] H&P Exam - Hospitalist 05/25/25 0037 MR#: [id number] Acct: [id number] Name: JOSEPH RINCON Rep #:[id number] : 1975 50 From: Myra Null MD [...] (>1/5 vodka daily) who presents to the [facility] ED on 05/25/25 with history of [...] 1, Zofran 4 mg IV x 1. [facility] Medical History Pancreatitis Hypokalemia Nausea & [...] (>1/5 vodka daily) who presents to the [facility] ED on 05/25/25 with history of [...] admission presentation. Charges/Coding Visit Charges Inpatient E&M: 40142 Init Hosp L3 05/25/25 0154 Cosigner Signature (if applicable): CC: Dr. Myra Null MD; Dr. Abisai Haley MD~ Signed [facility]06-08-[address] [facility] Medical Records Department [address] [place] [address] Instructions for Home/Discharge Instructions 05/06/25 1312 MR#: [id number] Acct: [id number] Name: JOSEPH RINCON Rep #:[id number] : 1975 50 From: Mao Becker DO [...] can be placed): Home, Self Care 05/06/25 1322[facility] DO CC: Dr. Julius Moncada MD; Dr. Abisai Haley MD; Dr. Canelo Myers MD ~ Signed [facility]06-08-2025 [facility] Progress note Author Canelo Myers [facility] Note Date/Time May 04, 2025 9:53a m [facility] Medical Records Department [address] [facility] [place] [address] Progress Note - Hospitalist 05/04/25 0742 MR#: [id number] Acct: [id number] Name: JOSEPH RINCON Rep #:[id number] : 1975 50 From: Canelo Myers MD PCP: Dr. Abisai Haley MD Status:ADM IN Location: [place] [address] Reason for Visit Reason for Visit: Diagnoses [...] 04/27/25 14:17 SB (Rec: 04/27/25 14:17 SB [id number]) Nutrition Malnutrition Evidence of Yes Malnutrition Exists [...] % (Auto) 58.1, Lymph % (Auto) 23.0, Steele % (Auto) 15.4 H, Eos % (Auto) [...] Requested for PT OT eval and social services designee to assist with discharge planning ? 05/03/2025; patient remains physical deconditioning. She is agreeable to being discharged with prison facility for rehab this was discussed with patient's son Tan was in the room Time spent in the patient's overall evaluation,decision-making process, review of diagnostic data, adjustment of management, discussion with other providers, nursing nursing and ancillary staff involved in patient's care documentation, 35minutes Charges/Coding Visit Charges Inpatient E&M: 48118 Subs Hosp L2 05/04/25 0953 <Electronically signed by Canelo Myers MD> Cosigner Signature (if applicable): CC: ~ Signed [facility] Work Phone: 1(405) 339-161006-06-2025 Progress note [facility] Medical Records Department [address] [place] [address] Progress Note - Hospitalist 05/04/25 0742 MR#: [id number] Acct: [id number] Name: JOSEPH RINCON Rep #:[id number] : 1975 50 From: Canelo Myers MD PCP: Dr. Abisai Haley MD Status:ADM IN Location: [place] [address] Reason for Visit Reason for Visit: Diagnoses [...] 04/27/25 14:17 SB (Rec: 04/27/25 14:17 SB [id number]) Nutrition Malnutrition Evidence of Yes Malnutrition Exists [...] % (Auto) 58.1, Lymph % (Auto) 23.0, Steele % (Auto) 15.4 H, Eos % (Auto) [...] Requested for PT OT eval and social services designee to assist with discharge planning ? 05/03/2025; patient remains physical deconditioning. She is agreeable to being discharged with prison facility for rehab this was discussed with patient's son Tan was in the room Time spent in the patient's overall evaluation,decision-making process, review of diagnostic data, adjustment of management, discussion with other providers, nursing nursing and ancillary staff involved in patient's care documentation, 35minutes Charges/Coding Visit Charges Inpatient E&M: 59520 Subs Hosp L2 05/04/25 0953 Cosigner Signature (if applicable): CC: ~ Signed [facility]06-05-2025 Progress note Author Canelo Myers [facility] Note Date/Time May 03, 2025 11:37 am [facility] Medical Records Department [address] [place] [address] Progress Note - Hospitalist 05/03/25 1136 MR#: [id number] Acct: [id number] Name: JOSEPH RINCON Rep #:[id number] : 1975 50 From: Canelo Myers MD PCP: Dr. Abisai Haley MD Status:ADM IN Location: [place] [address] Reason for Visit Reason for Visit: Diagnoses Acute pancreatitis without necrosis or infection, unspecified (04/26/25) Subjective Subjective Patient has completed phenobarb taper. She however remains physically deconditioned. She is agreeable to being discharged to a prison facility for rehab Objective Data Objective Data [...] 04/27/25 14:17 SB (Rec: 04/27/25 14:17 SB [id number]) Nutrition Malnutrition Evidence of Yes Malnutrition Exists [...] % (Auto) 61.1, Lymph % (Auto) 19.7, Steele % (Auto) 15.1 H, Eos % (Auto) [...] Requested for PT OT eval and social services designee to assist with discharge planning ? 05/03/2025; patient remains physical deconditioning. She is agreeable to being discharged with prison facility for rehab this was discussed with patient's son Tan was in the room Charges/Coding Visit Charges Inpatient E&M: 33622 Subs Hosp L2 05/03/25 1137 <Electronically signed by Canelo Myers MD> Cosigner Signature (if applicable): CC: ~ Signed [facility] Work Phone: 1(889) 839-713406-05-2025 Progress note [facility] Medical Records Department [address] [place] [address] Progress Note - Hospitalist 05/03/25 1136 MR#: [id number] Acct: [id number] Name: JOSEPH RINCON Rep #:[id number] : 1975 50 From: Canelo Myers MD PCP: Dr. Abisai Haley MD Status:ADM IN Location: [place] [address] Reason for Visit Reason for Visit: Diagnoses Acute pancreatitis without necrosis or infection, unspecified (04/26/25) Subjective Subjective Patient has completed phenobarb taper. She however remains physically deconditioned. She is agreeable to being discharged to a prison facility for rehab Objective Data Objective Data [...] 04/27/25 14:17 SB (Rec: 04/27/25 14:17 SB [id number]) Nutrition Malnutrition Evidence of Yes Malnutrition Exists [...] % (Auto) 61.1, Lymph % (Auto) 19.7, Steele % (Auto) 15.1 H, Eos % (Auto) [...] Requested for PT OT eval and social services designee to assist with discharge planning ? 05/03/2025; patient remains physical deconditioning. She is agreeable to being discharged with prison facility for rehab this was discussed with patient's son Tan was in the room Charges/Coding Visit Charges Inpatient E&M: 59017 Subs Hosp L2 05/03/25 1137 Cosigner Signature (if applicable): CC: ~ Signed [facility]06-04-2025 Progress note Author Canelo Myers [facility] Note Date/Time May 02, 2025 11:07 am [facility] Medical Records Department [address] [place] [address] Progress Note - Hospitalist 05/02/25 0736 MR#: [id number] Acct: [id number] Name: JOSEPH RINCON Rep #:[id number] : 1975 50 From: Canelo Myers MD PCP: Dr. Abisai Haley MD Status:ADM IN Location: [place] [address] Reason for Visit Reason for Visit: Diagnoses [...] 04/27/25 14:17 SB (Rec: 04/27/25 14:17 SB [id number]) Nutrition Malnutrition Evidence of Yes Malnutrition Exists [...] % (Auto) 57.2, Lymph % (Auto) 22.5, Steele % (Auto) 15.8 H, Eos % (Auto) [...] Requested for PT OT eval and social services designee to assist with discharge planning Charges/Coding Visit Charges Inpatient E&M: 90520 Subs Hosp L2 05/02/25 1107 <Electronically signed by Canelo Myers MD> Cosigner Signature (if applicable): CC: ~ Signed [facility] Work Phone: 1(781) 931-376706-04-2025 Progress note [facility] Medical Records Department [address] [place] [address] Progress Note - Hospitalist 05/02/25 0736 MR#: [id number] Acct: [id number] Name: JOSEPH RINCON Rep #:[id number] : 1975 50 From: Canelo Myers MD PCP: Dr. Abisai Haley MD Status:ADM IN Location: [place] [address] Reason for Visit Reason for Visit: Diagnoses [...] 04/27/25 14:17 SB (Rec: 04/27/25 14:17 SB [id number]) Nutrition Malnutrition Evidence of Yes Malnutrition Exists [...] % (Auto) 57.2, Lymph % (Auto) 22.5, Steele % (Auto) 15.8 H, Eos % (Auto) [...] Requested for PT OT eval and social services designee to assist with discharge planning Charges/Coding Visit Charges Inpatient E&M: 71678 Subs Hosp L2 05/02/25 1107 Cosigner Signature (if applicable): CC: ~ Signed [facility]06-03-2025 Progress note Author Canelo Myers [facility] Note Date/Time May 01, 2025 9:31a m [facility] Medical Records Department [address] [place] [address] Progress Note - Hospitalist 05/01/25 0930 MR#: [id number] Acct: [id number] Name: JOSEPH RINCON #:[id number] : 1975 50 From: Canelo Myers MD PCP: Dr. Abisai Halye MD Status:ADM IN Location: [place] [address] Reason for Visit Reason for Visit: Diagnoses [...] 04/27/25 14:17 SB (Rec: 04/27/25 14:17 SB [id number]) Nutrition Malnutrition Evidence of Yes Malnutrition Exists [...] Requested for PT OT eval and social services designee to assist with discharge planning Charges/Coding Visit Charges Inpatient E&M: 15758 Subs Hosp L2 05/01/25 0931 <Electronically signed by Canelo Myers MD> Cosigner Signature (if applicable): CC: ~ Signed [facility] Work Phone: 1(861) 530-951206-03-2025 Progress note [facility] Medical Records Department [facility] [place] [address] [address] [place] [address] Progress Note - Hospitalist 05/01/25 0930 MR#: [id number] Acct: [id number] Name: JOSEPH RINCON Rep #:[id number] : 1975 50 From: Canelo Myers MD PCP: Dr. Abisai Haley MD Status:ADM IN Location: [place] [address] Reason for Visit Reason for Visit: Diagnoses [...] 04/27/25 14:17 SB (Rec: 04/27/25 14:17 SB [id number]) Nutrition Malnutrition Evidence of Yes Malnutrition Exists [...] Requested for PT OT eval and social services designee to assist with discharge planning Charges/Coding Visit Charges Inpatient E&M: 67144 Subs Hosp L2 05/01/25 3113 Cosigner Signature (if applicable): CC: ~ Signed [facility]06-02-2025 Progress note Author Canelo Myers [facility] Note Date/Time April 30, 2025 9:35a m [facility] Medical Records Department [address] [place] [address] Progress Note - Hospitalist 04/30/25813 MR#: [id number] Acct: [id number] Name: JOSEPH RINCON Rep #:[id number] : 1975 50 From: Canelo Myers MD PCP: Dr. Abisai Haley MD Status:ADM IN Location: [place] [address] Reason for Visit Reason for Visit: Diagnoses [...] 04/27/25 14:17 SB (Rec: 04/27/25 14:17 SB [id number]) Nutrition Malnutrition Evidence of Yes Malnutrition Exists [...] % (Auto) 59.8, Lymph % (Auto) 23.4, Steele % (Auto) 13.8 H, Eos % (Auto) [...] weight trends. Charges/Coding Visit Charges Inpatient E&M: 04879 Subs Hosp L2 04/30/25 0912 <Electronically signed by Canelo Myers MD> Cosigner Signature (if applicable): CC: ~ Signed [facility] Work Phone: 1(154) 882-754506-02-2025 Progress note [facility] Medical Records Department [address] [place] [address] Progress Note - Hospitalist 04/30/2514 MR#: [id number] Acct: [id number] Name: JOSEPH RINCON Rep #:[id number] : 1975 50 From: Canelo Myers MD PCP: Dr. Abisai Haley MD Status:ADM IN Location: [place] [address] Reason for Visit Reason for Visit: Diagnoses [...] 04/27/25 14:17 SB (Rec: 04/27/25 14:17 SB [id number]) Nutrition Malnutrition Evidence of Yes Malnutrition Exists [...] % (Auto) 59.8, Lymph % (Auto) 23.4, Steele % (Auto) 13.8 H, Eos % (Auto) [...] weight trends. Charges/Coding Visit Charges Inpatient E&M: 85354 Subs Hosp L2 04/30/25 0945 Cosigner Signature (if applicable): CC: ~ Signed [facility]06-01-2025 Progress note Author Canelo Myers [facility] Note Date/Time April 29, 2025 8:44[facility] Medical Records Department [address] [place] [address] Progress Note - Hospitalist 04/29/25 0733 MR#: [id number] Acct: [id number] Name: JOSEPH RINCON Rep #:[id number] : 1975 50 From: Canelo Myers MD PCP: Dr. Abisai Haley MD Status:ADM IN Location: [place] [address] Reason for Visit Reason for Visit: Diagnoses [...] 04/27/25 14:17 SB (Rec: 04/27/25 14:17 SB [id number]) Nutrition Malnutrition Evidence of Yes Malnutrition Exists [...] 72.9 H, Lymph % (Auto) 14.1 L, Steele % (Auto) 10.9 H, Eos % (Auto) [...] 50 Minutes Charges/Coding Visit Charges Inpatient E&M: 87907 Subs Hosp L3 04/29/25 0844 <Electronically signed by Canelo Myers MD> Cosigner Signature (if applicable): CC: ~ Signed [facility] Work Phone: 1(120) 346-199506-01-2025 Progress note [facility] Medical Records Department [address] [place] [address] Progress Note - Hospitalist 04/29/25 0733 MR#: [id number] Acct: [id number] Name: JOSEPH RINCON Rep #:[id number] : 1975 50 From: Canelo Myers MD PCP: Dr. Abisai Haley MD Status:ADM IN Location: [place] [address] Reason for Visit Reason for Visit: Diagnoses [...] 04/27/25 14:17 SB (Rec: 04/27/25 14:17 SB [id number]) Nutrition Malnutrition Evidence of Yes Malnutrition Exists [...] 72.9 H, Lymph % (Auto) 14.1 L, Steele % (Auto) 10.9 H, Eos % (Auto) [...] 50 Minutes Charges/Coding Visit Charges Inpatient E&M: 69753 Subs Hosp L3 04/29/25 0844 Cosigner Signature (if applicable): CC: ~ Signed [facility]05-31-2025 Progress note Author Canelo Myers [facility] Note Date/Time April 28, 2025 9:47a m [facility] Medical Records Department [address] [place] [address] Progress Note - Hospitalist 04/28/25 0942 MR#: [id number] Acct: [id number] Name: JOSEPH RINCON Rep #:[id number] : 1975 50 From: Canelo Myers MD PCP: Dr. Abisai Haley MD Status:ADM IN Location: [place] [address] Reason for Visit Reason for Visit: Diagnoses [...] 04/27/25 14:17 SB (Rec: 04/27/25 14:17 SB [id number]) Nutrition Malnutrition Evidence of Yes Malnutrition Exists [...] 78.0 H, Lymph % (Auto) 12.5 L, Steele % (Auto) 8.0, Eos % (Auto) 0.8, [...] 52 Minutes Charges/Coding Visit Charges Inpatient E&M: 11526 Subs Hosp L3 04/28/25 0947 <Electronically signed by Canelo Myers MD> Cosigner Signature (if applicable): CC: ~ Signed [facility] Work Phone: 1(790) 435-683005-31-2025 Progress note [facility] Medical Records Department [address] [place] [address] Progress Note - Hospitalist 04/28/25 0942 MR#: [id number] Acct: [id number] Name: JOSEPH RINCON Rep #:[id number] : 1975 50 From: Canelo Myers MD PCP: Dr. Abisai Haley MD Status:ADM IN Location: [place] [address] Reason for Visit Reason for Visit: Diagnoses [...] 04/27/25 14:17 SB (Rec: 04/27/25 14:17 SB [id number]) Nutrition Malnutrition Evidence of Yes Malnutrition Exists [...] 78.0 H, Lymph % (Auto) 12.5 L, Steele % (Auto) 8.0, Eos % (Auto) 0.8, [...] 52 Minutes Charges/Coding Visit Charges Inpatient E&M: 76489 Subs Hosp L3 04/28/25 0947 Cosigner Signature (if applicable): CC: ~ Signed [facility]05-30-2025 Progress note Author Canelo Myers [facility] Note Date/Time April 27, 2025 1:15p m [facility] Medical Records Department [address] [place] [address] Progress Note - Hospitalist 04/27/25 0939 MR#: [id number] Acct: [id number] Name: JOSEPH RINCON Rep #:[id number] : 1975 50 From: Canelo Myers MD PCP: Dr. Abisai Haley MD Status:ADM IN Location: [place] [address] Reason for Visit Reason for Visit: Diagnoses [...] (Auto) 84.6 H, Lymph % (Auto) 7.3L, Steele % (Auto) 7.0, Eos % (Auto) 0.0, [...] Clarity Clear, Urine pH 6.0, Ur Specific [place] 1.010, Urine Protein 30 H, Urine Glucose [...] (Auto) 84.0 H, Lymph % (Auto)7.3 L, Steele % (Auto) 7.9, Eos % (Auto) 0.1, [...] fatty infiltration of the liver. Reading Location: [facility] Physical Exam Narrative GENERAL: cooperative HEENT: [...] 50 Minutes Charges/Coding Visit Charges Inpatient E&M: 15139 Subs Hosp L3 04/27/25 1315 <Electronically signed by Canelo Myers MD> Cosigner Signature (if applicable): CC: ~ Signed [facility] Work Phone: 1(429) 454-199005-30-2025 Progress note [facility] Medical Records Department [address] [place] [address] Progress Note - Hospitalist 04/27/25 0939 MR#: [id number] Acct: [id number] Name: JOSEPH RINCON Rep #:[id number] : 1975 50 From: Canelo Myers MD PCP: Dr. Abisai Haley MD Status:ADM IN Location: [place] [address] Reason for Visit Reason for Visit: Diagnoses [...] (Auto) 84.6 H, Lymph % (Auto) 7.3L, Steele % (Auto) 7.0, Eos % (Auto) 0.0, [...] Clarity Clear, Urine pH 6.0, Ur Specific [place] 1.010, Urine Protein 30 H, Urine Glucose [...] (Auto) 84.0 H, Lymph % (Auto)7.3 L, Steele % (Auto) 7.9, Eos % (Auto) 0.1, Baso % (Auto) 0.3, Absolute Neuts (auto) 9.6 H, Absolute Lymphs (auto) 0.83, Nucleated RBC % 0, PT 12.9, INR 1.0, [id number], Potassium 3.8, Chloride 96 L, Carbon Dioxide [...] fatty infiltration of the liver. Reading Location: [facility] Physical Exam Narrative GENERAL: cooperative HEENT: [...] 50 Minutes Charges/Coding Visit Charges Inpatient E&M: 39248 Subs Hosp L3 04/27/25 1315 Cosigner Signature (if applicable): CC: ~ Signed [facility]05-29-2025 History and physical note Author Julius Moncada [facility] Note Date/Time April 26, 2025 8:28p m [facility] Medical Records Department [address] [place] [address] H&P Exam - Hospitalist 04/26/25 1718 MR#: [id number] Acct: [id number] Name: JOSEPH RINCON Rep #:[id number] : 1975 50 From: Julius Moncada MD PCP: Dr. Abisai Haley MD Status:[facility]M [facility] - General General Date [...] (Auto) 84.6 H, Lymph % (Auto) 7.3L, Steele % (Auto) 7.0, Eos % (Auto) 0.0, [...] Clarity Clear, Urine pH 6.0, Ur Specific [place] 1.010, Urine Protein 30 H, Urine Glucose [...] fatty infiltration of the liver. Reading Location: [id number] Assessment & Plan Assessment/Plan (1) Pancreatitis: PLAN: [...] - No concerns regarding exocrine insufficiency - [place] pain control with Tylenol and opioids - [...] Moncada MD; Dr. Abisai Haley MD~ Signed [facility] Work Phone: 1(743) 835-174005-29-2025 History and physical note [facility] Medical Records Department [address] [place] [address] H&P Exam - Hospitalist 04/26/25 1718 MR#: [id number] Acct: [id number] Name: JOSEPH RINCON Rep #:[id number] : 1975 50 From: Julius Moncada MD PCP: Dr. Abisai Haley MD Status:ADM IN Location: [place] [address] HPI - General General Date of Admission: [...] phosphatase 122 total protein 7.7, albumin 4.5 [facility] Medical History Strain of left foot [...] (Auto) 84.6 H, Lymph % (Auto) 7.3L, Steele % (Auto) 7.0, Eos % (Auto) 0.0, [...] Clarity Clear, Urine pH 6.0, Ur Specific [place] 1.010, Urine Protein 30 H, Urine Glucose [...] fatty infiltration of the liver. Reading Location: [facility] Assessment & Plan Assessment/Plan (1) Pancreatitis: PLAN: [...] - No concerns regarding exocrine insufficiency - [place] pain control with Tylenol and opioids - [...] Moncada MD; Dr. Abisai Haley MD~ Signed [facility]05-29-2025 Evaluation note* Diagnosis Onset Date Resolution Status Admit Date Hypokalemia acute April 26 5:13pm Intractable abdominal pain acute April 26, 2025 5:13pm Nausea & vomiting acute March 5:13pm Pancreatitis acute April 26 5:13pm [facility] Work Phone: 1(600) 411-876405-29-2025 Evaluation note* Diagnosis Onset Date Resolution Status Admit Date Hypokalemia inactive April 26 5:13pm Intractable abdominal pain inactive April 26, 2025 5:13pm Nausea & vomiting inactive March 5:13pm Pancreatitis inactive April 26 5:13pm Admitted to alcohol detoxification center acute May 25, 2025 12:33am [facility] Work Phone: 1(212) 366-941405-29-2025 Evaluation note* Diagnosis Onset Date Resolution Status [...] diabetes mellitus acute July 17, 2025 12:56pm [facility] Work Phone: 1([phone]) 122-271505-29-2025 Evaluation note* Diagnosis Onset Date Resolution Status [...] pancreatitis chroni c August 12, 2025 12:43pm [facility] Work Phone: 1(485) 969-241205-29-2025 Evaluation note* Diagnosis Onset Date Resolution Status [...] pancreatitis chroni c August 12, 2025 12:43pm [facility] Work Phone: 1(326) 999-952305-29-2025 Discharge summary Author Humphrey [facility] Note Date/Time April 26, 2025 4:45p m [facility] Medical Records Department [address] [place] [address] Emergency Department Summary 04/26/25 MR#: [id number] Acct: [id number] Name: JOSEPH RINCON Rep #:[id number] : 1975 50 From: Humphrey Garcia DO [...] normal colored stool. [facility] Medical History Strain of left foot [...] 84.6 H Lymph % (Auto) 7.3 L Steele % (Auto) 7.0 Eos % (Auto) 0.0 [...] Clarity Clear Urine pH 6.0 Ur Specific [place] 1.010 Urine Protein 30 H Urine Glucose [...] fatty infiltration of the liver. Reading Location: [id number] Discharge Plan Triage Chief Complaint: Abd Pain [...] MD [Primary Care Provider] - Print Language: [place] Disposition Disposition: Acute Care Hospital [facility] What to do if you have Problems For any increased pain, shortness of breath, bleeding, nausea or vomiting, chestpain, or any unexpected problems, contact your Primary Care Provider. Call [facility] ([phone]) or report to the closest Emergency Room. Call 911 if necessary. 04/26/25 1645 <Electronically signed by Humphrey Garcia DO> Cosigner Signature (if applicable): CC: Dr. Abisai Haley MD ~ Signed [facility] Work Phone: 1(724) 646-235605-29-2025 Discharge summary [facility] Medical Records Department [address] [place] [address] Emergency Department Summary 04/26/25 MR#: [id number] Acct: [id number] Name: JOSEPH RINCON Rep #:[id number] : 1975 50 From: Humphrey Garcia DO [...] normal colored stool. Patient denies any recentcontacts [facility] Medical History Strain of left [...] 84.6 H Lymph % (Auto) 7.3 L Steele % (Auto) 7.0 Eos % (Auto) 0.0 [...] Clarity Clear Urine pH 6.0 Ur Specific [place] 1.010 Urine Protein 30 H Urine Glucose [...] fatty infiltration of the liver. Reading Location: [facility] Discharge Plan Triage Chief Complaint: Abd [...] MD [Primary Care Provider] - Print Language: [place] Disposition Disposition: Acute Care Hospital [facility] What to do if you have Problems For any increased pain, shortness of breath, bleeding, nausea or vomiting, chestpain, or any unexpected problems, contact your Primary Care Provider. Call [facility] ([phone]) or report tothe closest Emergency Room. Call 911 if necessary. 04/26/25 1645 Cosigner Signature (if applicable): CC: Dr. Abisai Haley MD ~ Signed [facility]05-29-2025 Radiology Diagnostic study note [facility] Imaging Services [address] [place], [place] [address] Abdomen/Pelvis W IV Cont ONLY MR#: [id number] Acct: [id number] Name: JOSEPH RINCON Rep #: [id number] : 1975 F 50 From: Jhonny Roger MD PCP: Dr. Abisai Haley MD Status: REG ER Study:Abdomen/Pelvis W IV Cont ONLY Date of E xam: 04/26/25 Exam# [id number] Ordering Dr: Becky Garcia DO PROCEDURE: ABDOMEN/PELVIS [...] fatty infiltration of the liver. Reading Location: [id number] CC: Dr. Abisai Haley MD; Dr. Humphrey Garcia DO ~ Supply Person: Signed [facility]05-15-2025 Hospital Discharge instructions Additional Instructions Plenty of fluids and rest. Sleep on the main floor tonight. Due to fall risk. No driving for the next 24 hours. Use your Protonix at home for stomach discomfort due to the alcohol. Follow-up with your doctor if not improving or return if worse.[facility] Work Phone: [phone]) 734-621305-14-2025 Radiology Diagnostic study note [facility] Imaging Services [address], [place] [address] Chest PA and Lateral MR#: [id number] Acct: [id number] Name: JOSEPH RINCON Rep #: [id number] : 1975 F 50 From: Jacque Martinez MD PCP: Dr. Abisai Haley MD Status: REG ER Study:Chest PA and Lateral Date of Exam: 04/11/25 Exam# [id number] Ordering Dr: Sheron Colon MD PROCEDURE: CHEST PA AND LATERAL 04/11/2025 REASON FOR EXAM: CHEST PAIN TECHNIQUE: Frontal and lateral views of the chest. COMPARISON: 04/04/2025 FINDINGS: Hardware: None Heart: The heart size is normal. Mediastinum: The mediastinal contour is unremarkable. Lungs: The lungs are clear. Bones: The bones are unremarkable. RAD/Chest PA and Lateral IMPRESSION: NO ACUTE FINDINGS. Reading [facility] CC: Dr. Abisai Haley MD; Dr. Francisco Colon MD ~ Supply Person: Signed [facility]05-07-[address] [facility] Medical Records Department [address] [place] [address] Emergency Department Summary 04/04/25 MR#: [id number] Acct: [id number] Name: JOSEPH RINCON Rep #:[id number] : 1975 50 From: Imani Ruelas PCP: [...] had intermittent hot flashes and then chills/sweats. [facility] Medical History Strain of left [...] 77.0 H Lymph % (Auto) 14.0 L Steele % (Auto) 7.8 Eos % (Auto) 0.2 [...] process is seen. Negative examination. Reading Location: [facility]-1 Abdomen/Pelvis CT 04/04/25 12:02 IMPRESSION: 1. [...] 4. Additional description as above. Reading Location: [facility] Rhythm Strip Rhythm Strip: Sinus Tach Rate: [...] Staff - Active Staff] - Print Language: [place] Disposition Disposition: Home, Self Care What to do if you have Problems For any increased pain, shortness of breath, bleeding, nausea or vomiting, chestpain, or any unexpected problems, contact your Primary Care Provider. Call [facility] ([phone]) or report tothe closest Emergency Room. Call 911 if necessary. 04/04/25 1607 Cosigner Signature (if applicable): CC: Dr. Abisai Haley MD ~ Signed [facility]05-07-2025 Discharge summary Author Imani Knight [facility] Note Date/Time April 04, 2025 4:07pm [facility] Medical Records Department [address] [facility] [place] [address] Emergency Department Summary 04/04/25 MR#: [id number] Acct: [id number] Name: JOSEPH RINCON Rep #:[id number] : 1975 50 From: Imani Ruelas PCP: [...] had intermittent hot flashes and then chills/sweats. [facility] Medical History Strain of left [...] 77.0 H Lymph % (Auto) 14.0 L Steele % (Auto) 7.8 Eos % (Auto) 0.2 [...] process is seen. Negative examination. Reading Location: [facility] Abdomen/Pelvis CT 04/04/25 12:02 IMPRESSION: 1. Correlate [...] 4. Additional description as above. Reading Location: [id number] Rhythm Strip Rhythm Strip: Sinus Tach Rate: [...] Staff - Active Staff] - Print Language: [place] Disposition Disposition: Home, Self Care What to do if you have Problems For any increased pain, shortness of breath, bleeding, nausea or vomiting, chestpain, or any unexpected problems, contact your Primary Care Provider. Call [facility] ([phone]) or report to the closest Emergency Room. Call 911 if necessary. 04/04/25 1607 <Electronically signed by Imani Knight DO> Cosigner Signature (if applicable): CC: Dr. Abisai Haley MD ~ Signed [facility] Work Phone: 1([phone]) 556-558105-07-2025 Radiology Diagnostic study note [facility] Imaging Services [address] [place] [address] Abdomen/Pelvis W IV Cont ONLY MR#: [id number] Acct: [id number] Name: JOSEPH RINCON Rep #: [id number] : 1975 F 50 From: Odalis Giraldo MD PCP: Dr. Abisai Haley MD Status: REG ER Study:Abdomen/Pelvis W IV Cont ONLY Date of E xam: 04/04/25 Exam# [id number] Ordering Dr: Selene Knight DO PROCEDURE: ABDOMEN/PELVIS [...] lobe airspace disease is new from prior, [id number] x 24 mm (series 2, image 11). [...] 4. Additional description as above. Reading Location: [facility] CC: Dr. Abisai Haley MD; Dr. Imani Knight DO ~ Supply Person: Signed [facility]05-07-2025 Radiology Diagnostic study note [facility] Imaging Services [address] [place], [place] [address] Chest 1 View (Portable) MR#: [id number] Acct: [id number] Name: JOSEPH RINCON Rep #: [id number] : 1975 F 50 From: Guido Valles MD PCP: Dr. Abisai Haley MD Status: REG ER Study:Chest 1 View (Portable) Date of Exam: 04/04/25 Exam# [id number] Ordering Dr: Selene Knight DO PROCEDURE: CHEST 1 VIEW (PORTABLE) 04/04/2025 REASON FOR EXAM: CHEST PAIN TECHNIQUE: Frontal view of the chest. COMPARISON: Chest x-ray 11/12/2024 RAD/Chest 1 View (Portable) IMPRESSION: Lungs appear clear throughout. No pleural effusion or pneumothorax is seen. The cardiomediastinal silhouette is stable, without evidence of cardiomegaly. No acute osseous process is seen. Negative examination. Reading Location: [place] [address] CC: Dr. Abisai Haley MD; Dr. Imani Knight DO ~ Supply Person: Signed [facility]05-25-2024 NoteHNO ID: [id number] Author: ARETHA SCHOFIELD APRN.ASSEMBLING 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 Service: ? Author Type: Nurse Practitioner Type: [...] drugs Objective Physical Exam (more content not included)...[facility]05-25-2024 Instructions * Patient Instructions* Aretha Schofield APRN.ASSEMBLING 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 - 04/22/2024 2:02 PM EDT ASSESSMENT/PLAN: 1. [...] Discussed expected course of illness Aretha Schofield APRN.ASSEMBLING 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 documented in this encounterGrant Hospital05-25-2024 History of Present illness Narrative* Aretha Schofield APRN.ASSEMBLING 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 - 04/22/2024 1:56 PM EDT Subjective Sinus [...] Discussed expected course of illness Aretha Schofield APRN.ASSEMBLING 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 documented in this encounterGrant Hospital08-31-2023 Discharge summary Author Capirce Jerry [facility] July 29, 2023 5:41pm Note Date/Time July 29, 2023 2: 37pm [facility] Medical Records Department [address] [place] [address] Emergency Department Summary 07/29/23 MR#: [id number] Acct: [id number] Name: JOSEPH RINCON Rep #:[id number] : 1975 48 From: Caprice Jerry MD [...] time that did not show any disease. [facility] Medical History Acute lumbar myofascial [...] % (Auto) 63.7 Lymph % (Auto) 25.4 Steele % (Auto) 8.5 Eos % (Auto) 1.6 [...] your Primary Care Provider. Call [facility] ([phone]) or report to the closest Emergency Room. Call 911 if necessary. 07/29/23 1741 <Electronically signed by Caprice Jerry MD> Cosigner Signature (if applicable): CC: Milana Garcia DO ~ Signed [facility] Work Phone: [phone]) [phone] Jerry [facility] May 25, 2023 2:53am Note Date/Time May 24, 2023 11:[address] [facility] Medical Records Department [address] [place] [address] Emergency Department Summary 05/24/23 MR#: [id number] Acct: [id number] Name: JOSEPH RINCON Rep #:[id number] : 1975 48 From: Caprice Jerry MD [...] blood pressure. She just received a 14-day telemetry monitor in the mail that she will [...] but there has never been seizures documented. [facility] Medical History Acute lumbar myofascial [...] 40.3 L Lymph % (Auto) 45.0 H Steele % (Auto) 11.4 H Eos % (Auto) [...] Color Urine Clarity Urine pH Ur Specific [place] Urine Protein Urine Glucose (UA) Urine Ketones [...] (Auto) Neut % (Auto) Lymph % (Auto) Steele % (Auto) Eos % (Auto) Baso % [...] Clarity Clear Urine pH 6.5 Ur Specific [place] 1.005 Urine Protein Negative Urine Glucose (UA) [...] Patient's had no significant arrhythmias noted on telemetry monitor throughout her ED stay. Portable chest [...] been worked up. She just got her telemetry monitor in the mail tonight to put [...] your Primary Care Provider. Call [facility] ([phone]) or report to the closest Emergency Room. Call 911 if necessary. 05/25/23 0253 <Electronically signed by Caprice Jerry MD> Cosigner Signature (if applicable): CC: Milana Garcia DO ~ Signed [facility] Work Phone: [phone] Dyer [facility] May 05, 2023 12:31am Note Date/Time May 04, 2023 10:36 pm [facility] Medical Records Department [address] [place] [address] Emergency Department Summary 05/04/23 MR#: [id number] Acct: [id number] Name: JOSEPH RINCON Rep #:[id number] : 1975 48 From: John Dyer DO [...] a cardiac cath 11/19/2022 which was normal. [facility] Medical History Acute lumbar myofascial [...] % (Auto) 51.3 Lymph % (Auto) 35.6 Steele % (Auto) 9.4 Eos % (Auto) 2.7 [...] 22:33 EDT Reading Location ID and State: [facility] / [place] Tel , Service support , Brain CT [...] your Primary Care Provider. Call [facility] ([phone]) or report to the closest Emergency Room. Call 911 if necessary. 05/05/23 0031 <Electronically signed by John Dyer DO> Cosigner Signature (if applicable): CC: Milana Garcia DO ~ Signed [facility] Work Phone: [phone]) 627-705905-13-[address] Johnson [facility] April 10, 2023 3:15pm Note Date/Time April 10, 2023 3:15p [facility] Medical Records Department [address] [place] [address] Progress Note - Hospitalist 04/10/23 1511 MR#: [id number] Acct: [id number] Name: JOSEPH RINCON Rep #:[id number] : 1975 48 From: Radha Johnson DO PCP: Milana Garcia DO Status:ADM I N Location: [place] [address] Hospitalist Note Is a 48-year-old white female [...] some issues for her at baseline. 04/10/23 2752 <Electronically signed by Radha Johnson DO> Cosigner Signature (if applicable): CC: ~ Signed [facility] Work Phone: 1([phone]) 518-188305-13-[address] Jacobs [facility] April 10, 2023 7:13am Note Date/Time April 09, 2023 11:06 pm [facility] Medical Records Department [address] [place] [address] Emergency Department Summary 04/09/23 MR#: [id number] Acct: [id number] Name: JOSEPH RINCON Rep #:[id number] : 1975 48 From: David Ruelas PCP: Milana Garcia DO Status:ADM I N Location: [place] [address] HPI History of Present Illness Chief Complaint: [...] TAD Risk Factors: Negative for Hypertension PFSH [facility] Medical History Acute lumbar myofascial strain [...] 85.1 H Lymph % (Auto) 11.3 L Steele % (Auto) 1.6 Eos % (Auto) 0.4 [...] Color Urine Clarity Urine pH Ur Specific [place] Urine Protein Urine Glucose (UA) Urine Ketones [...] (Auto) Neut % (Auto) Lymph % (Auto) Steele % (Auto) Eos % (Auto) Baso % [...] Clarity Clear Urine pH 6.5 Ur Specific [place] 1.010 Urine Protein Negative Urine Glucose (UA) [...] (Auto) Neut % (Auto) Lymph % (Auto) Steele % (Auto) Eos % (Auto) Baso % [...] Color Urine Clarity Urine pH Ur Specific [place] Urine Protein Urine Glucose (UA) Urine Ketones [...] interval, and QTc intervals were all normal. [place] was normal. There are no acute ST [...] (42), Including time spent:, Discussing w/Patient &/or Family/Flux Tube Attendant, Discussing w/Consultants, Arranging Admission or Transfer and Performing Direct Patient Care at Bedside Discharge Plan Dx/Rx/DC Orders Clinical Impression: High anion gap metabolic acidosis, Hypotension, Lactic acidosis Disposition Disposition: [facility] Discharge Date/Time: 04/10/23 03:28 What to do if you have Problems For any increased pain, shortness of breath, bleeding, nausea or vomiting, chestpain, or any unexpected problems, contact your Primary Care Provider. Call [facility] ([phone]) or report to the closest Emergency Room. Call 911 if necessary. 04/10/23712 <Electronically signed by David Jacobs DO> Cosigner Signature (if applicable): CC: Milana Garcia DO ~ Signed [facility] Work Phone: 1([phone]) 476-725705-13-2023 History and physical note Author Dr. Kiran [facility] April 10, 2023 5:36am Note Date/Time April 10, 2023 1:28a [facility] Medical Records Department [address] [place] [address] H&P Exam - Hospitalist 04/10/23 0128 MR#: [id number] Acct: [id number] Name: JOSEPH RINCON Rep #:[id number] : 1975 48 From: Young Kiran MD PCP: Milana Garcia DO Status:ADM I N Location: [place] [id number]- 1 HPI - General General Date of [...] before presentation patient had multiple loose stools. [facility] Medical History Acute lumbar myofascial strain [...] cranial nerves II through XII grossly intact. Strang- Hallpike maneuver to the right was positive [...] 85.1 H, Lymph % (Auto) 11.3 L, Steele % (Auto) 1.6, Eos % (Auto) 0.4, [...] Lovenox ordered. Charges/Coding Visit Charges Inpatient E&M: 38271 Init Hosp L3 04/10/23 0536 <Electronically signed by Young Kiran MD> Cosigner Signature (if applicable): CC: Dr. Young Kiran MD; Milana aGrcia DO~ Signed [facility] Work Phone: 1(156) 481-194604-24-[address] Gaviria [facility] March 22, 2023 10:43pm Note Date/Time March 22, 2023 7:[address] [facility] Medical Records Department [address] [place] [address] Emergency Department Summary 03/22/23 MR#: [id number] Acct: [id number] Name: JOSEPH RNICON Rep #:[id number] : 1975 47 From: Lauri Gaviria MD [...] Prior similar symptoms: No Recent [facility] Medical History Acute lumbar myofascial strain [...] % (Auto) 64.4 Lymph % (Auto) 22.7 Steele % (Auto) 9.9 Eos % (Auto) 2.0 [...] Color Urine Clarity Urine pH Ur Specific [place] Urine Protein Urine Glucose (UA) Urine Ketones Urine Occult Blood Urine Nitrite Urine Bilirubin Urine Urobilinogen Ur Leukocyte Esterase Urine RBC Urine WBC Ur Squamous Epith Cells Amorphous Sediment Urine Bacteria Urine Mucus 03/22/23 20:20 WBC RBC Hgb Hct MCV MCH MCHC RDW Std Deviation RDW Coeff of Braxton Plt Count MPV Immature Gran % (Auto) Neut % (Auto) Lymph % (Auto) Steele % (Auto) Eos % (Auto) Baso % [...] Sl. Cloudy Urine pH 6.5 Ur Specific [place] 1.005 Urine Protein Negative Urine Glucose (UA) [...] duration 86 ms. QT duration 408 ms. [place] is normal.) Treatment and Re-Evaluation :: Patient [...] your Primary Care Provider. Call [facility] ([phone]) or report to the closest Emergency Room. Call 911 if necessary. 03/22/232242 <Electronically signed by Lauri Gaviria MD> Cosigner Signature (if applicable): CC: Milana Garcia DO ~ Signed [facility] Work Phone: [phone]) 350-625704-24-2023 Hospital Discharge instructions Additional Instructions Call your doctor in the morning to have repeat blood work in 3 to 5 days. Let them know that your creatinine is elevated.[facility] Work Phone: [phone]) 476-127310-09-2022 Hospital Discharge instructions Additional Instructions Plenty of fluids and rest. No alcohol for the next 48 hours. No driving for the next 24 hours. Follow-up with your primary care physician. They can get an EEG to further evaluate you for possible seizures. Your labs and CAT scan tonight were unremarkable other than your alcohol level that was 237.[facility] Work Phone: [phone]) 750-159508-23-2022 Instructions* Patient Instructions* Samantha Deleon APRN.[facility] - 07/21/2022 7:38 PM EDT SCIAT[place]: Your [...] bladder or bowel control. documented in this encounterGrant Hospital08-23-2022 History of Present illness Narrative* Sabrina Hairstno RT(R) - 07/21/2022 7:20 PM EDT Radiology [...] 21, 2022 7:16 PM documented in this encounterGrant Hospital08-23-2022 History of Present illness Narrative* Samantha Deleon, HOT AIR FUR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 - 07/21/2022 7:10 PM EDT This note was created using [employer]. 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 The history is provided by the patient. No chinese language professor was used. Musculoskeletal Problem This is a [...] Flexeril Follow up with PCP Samantha Deleon APRN.ASSEMBLING 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 documented in this encounterGrant Hospital08-19-2019 History of Past illness Narrative* Problem [...] of this encounter (statuses as of 07/21/2022) [facility] Author Sho Leyva [facility] Note Date/Time May 28, 2025 2:19 pm [facility] Medical Records Department [address] [place] [address] Counseling Note - Pharmacy 05/28/25 1332 MR#: [id number] Acct: [id number] Name: JOSEPH RINCON Rep #:[id number] : 1975 50 From: Sho Leyva PCP: Dr. Abisai Haley MD Status:ADM IN Location: [address] Med Reconciliation Pharmacy Service has performed [...] Signature (if applicable): Date CC: ~ Signed [facility] Work Phone: Discharge summary Author Dr. Johnson [facility] April 11, 2023 9:49am Note Date/Time April 11, 2023 9:39a [facility] Medical Records Department [address] [place] [address] Discharge Summary 04/11/23 0936 MR#: [id number] Acct: [id number] Name: JOSEPH RINCON Rep #:[id number] : 1975 48 From: Radha Johnson DO PCP: Milana Garcia DO Status:ADM I N Location: [place] [address] Providers Date of Admission: 04/10/23 Date of [...] % (Auto) 67.1, Lymph % (Auto) 23.8, Steele % (Auto) 7.8, Eos % (Auto) 0.7, [...] 11:21 EDT Reading Location ID and State: [facility] / [place] Tel , Service support , D/C Instructions [...] Self Care Charges/Coding Visit Charges Inpatient E&M: 34695 Disch Hosp >30min 04/11/23 0949 <Electronically signed by Radha Johnson DO> Cosigner Signature (if applicable): CC: Dr. Radha Johnson DO; Milana Garcia DO~ Signed [facility] Work Phone: Discharge summary Author Mao Becker [facility] Note Date/Time May 06, 2025 1:22p taisha [facility] Medical Records Department [address] [place] [address] Instructions for Home/Discharge Instructions 05/06/25 1312 MR#: [id number] Acct: [id number] Name: JOSEPH RINCON Rep #:[id number] : 1975 50 From: Mao Becker DO [...] MD; Dr. Canelo Myers MD ~ Signed [facility] Work Phone: Discharge summary Author Mao [facility] Note Date/Time May 28, 2025 1:[address] [facility] Medical Records Department [address] [place] [address] Discharge Summary 05/28/25 1313 MR#: [id number] Acct: [id number] Name: JOSEPH RINCON Rep #:[id number] : 1975 50 From: Mao Becker DO PCP: Dr. Abisai Haley MD Status:ADM IN [id number] Providers Date of Admission: 05/25/25 Date of Discharge: 05/28/25 Primary Care Physician: Abisai Haley MD Reason For Visit: ETOH DETOXIFICATION, WITHDRAWL Diagnosis Discharge Diagnosis (1) Admitted to alcohol detoxification center: Status: Acute Plan 1. Acute alcohol withdrawal-patient will remain on her present medications, addiction social services designee will talk with the patient #2 hypomagnesemia-magnesium [...] was seen in the emergency room at [facility] desiring services for alcohol detox. She had been admitted previously only several weeks ago for pancreatitis and alcohol withdrawal and had already gone through the program at that time. Her toxicology screen was positive for barbiturates and benzodiazepines, but alcohol level was 312. Patient was admitted to [facility], orders were entered using the alcohol detox order set and she was seen by addiction social services designee. Patient had minimal withdrawal symptoms to hospitalization [...] Self Care Charges/Coding Visit Charges Inpatient E&M: 22676 Disch Hosp >30min 05/28/25 1316 <Electronically signed by Mao Becker DO> Cosigner Signature (if applicable): CC: Dr. Abisai Haley MD; Dr. Mao Becker DO~ Signed [facility] Work Phone: Discharge summary Author Canelo Myers [facility] Note Date/Time July 20, 2025 2: 48pm [facility] Medical Records Department [address] [facility] [place] [address] Discharge Summary 07/20/25 1442 MR#: [id number] Acct: [id number] Name: JOSEPH RINCON Rep #:[id number] : 1975 50 From: Canelo Myers MD PCP: Dr. Abisai Haley MD Status:ADM IN Location: [facility] CZ054-4 Providers Date of Admission: 07/17/25 Date of [...] % (Auto) 66.7, Lymph % (Auto) 19.5, Steele % (Auto) 11.8 H, Eos % (Auto) 1.6, Baso % (Auto) 0.2, AbsoluteNeuts (auto) 2.8, Absolute Lymphs (auto) 0.83, Nucleated RBC % 0, Sodium 140, Potassium 3.6, Chloride 103, Carbon Dioxide 27.0, Anion Gap 10, BUN 4, Creatinine 0.40 L, Estim Creat Clear Calc 148.53, Est GFR (MDRD) Non-Af 122, BUN/Creatinine Ratio 10.1, Glucose 107 H, Calcium 7.6, Total Bilirubin 0.86, CBT213 H, ALT 114 H, Alkaline Phosphatase 134 [...] Self Care Charges/Coding Visit Charges Inpatient E&M: 77749 Disch Hosp >30min 07/20/25 1448 <Electronically signed by Canelo Myers MD> Cosigner Signature (if applicable): CC: Dr. Abisai Haley MD; Dr. Canelo Myers MD~ Signed [facility] Work Phone: Discharge summary Author Wellington Rader [facility] Note Date/Time August 12, 2025 1:00pm [facility] Medical Records Department [address] [place] [address] Emergency Department Summary 08/12/25 MR#: [id number] Acct: [id number] Name: JIMBOLUKEJOSEPH L Rep #:[id number] : 1975 50 From: Wellington Rader MD [...] fevers or chills. No known sick contacts. [facility] Medical History Admitted to alcohol [...] Pancreatitis without phlegmon or pseudocyst. Reading Location: [id number] Management Discussion w/another healthcare provider: Hospitalist Critical Care Time Critical Care Time: Yes Critical care time (excluding procedures): 30-74 minutes (41 min), Including time spent:, Discussing w/Patient &/or Family/Flux Tube Attendant, Discussing w/Consultants, Arranging Admission or Transfer and Performing Direct Patient Care at Bedside Discharge Plan Dx/Rx/DC Orders Clinical Impression: Acute on chronic pancreatitis, LUI (acute kidney injury), Hyperglycemia due to type 2 diabetes mellitus, Ketosis Disposition Disposition: Acute Care Hospital [facility] What to do if you have Problems For any increased pain, shortness of breath, bleeding, nausea or vomiting, chestpain, or any unexpected problems, contact your Primary Care Provider. Call [facility] ([phone]) or report to the closest Emergency Room. Call 911 if necessary. 08/12/25 1300 <Electronically signed by Wellington Rader MD> Cosigner Signature (if applicable): CC: Dr. Abisai Haley MD ~ Signed [facility] Work Phone: Evaluation noteNo assessment information available [facility] Work Phone: Evaluation note* Diagnosis Hip pain, acute, left- [facility] Onset Date Resolution Status Bilateral acute otitis media acute [facility] Work Phone: Evaluation note* Diagnosis Onset Date Resolution Status Acute lumbar myofascial strain acute Strain of left hip acute Acute bronchitis acute ACS (acute coronary syndrome) acute Hypertensive urgency acute Hypertriglyceridemia acute Non-ST elevated myocardial infarction acute Hypertension chronic Type 2 diabetes mellitus [facility] Work Phone: Evaluation note* Diagnosis Onset Date Resolution Status Acute lumbar myofascial strain acute Strain of left hip acute Acute bronchitis acute ACS (acute coronary syndrome) acute Hypertensive urgency acute Hypertriglyceridemia acute Non-ST elevated myocardial infarction acute HTN (hypertension) chronic Type 2 diabetes mellitus [facility] Work Phone: Evaluation note* Diagnosis Onset Date Resolution Status Acute bronchitis acute [facility] Work Phone: Evaluation note* Diagnosis Onset Date Resolution Status Acute bronchitis acute High anion gap metabolic acidosis acute Hypotension acute Lactic acidosis acute Vertigo acute Type 2 diabetes mellitus [facility] Work Phone: Evaluation note* Diagnosis Onset Date Resolution Status Acute bronchitis acute High anion gap metabolic acidosis resolved Hypotension resolved Lactic acidosis resolved Vertigo resolved [facility] Work Phone: Evaluation note* Diagnosis Onset Date Resolution Status Acute bronchitis acute High anion gap metabolic acidosis resolved Hypotension resolved Lactic acidosis resolved Vertigo resolved Hypertriglyceridemia acute Palpitations acute Syncope and collapse acute HTN (hypertension) chronic Tobacco use disorder [facility] Work Phone: Evaluation note* Diagnosis Onset Date Resolution Status High anion gap metabolic acidosis resolved Hypotension resolved Lactic acidosis resolved Vertigo resolved Hypertriglyceridemia acute Palpitations acute Syncope and collapse acute HTN (hypertension) chronic Tobacco use disorder chronic Acute sinusitis acute [facility] Work Phone: Evaluation note* Diagnosis Onset Date Resolution Status Hypertriglyceridemia acute Palpitations acute Syncope and collapse acute HTN (hypertension) chronic Tobacco use disorder chronic Acute sinusitis acute [facility] Work Phone: Evaluation note* Diagnosis Onset Date Resolution Status Hypertriglyceridemia acute Palpitations acute Syncope and collapse acute HTN (hypertension) chronic Tobacco use disorder chronic Acute sinusitis acute Hypertriglyceridemia acute Palpitations acute HTN (hypertension) chronic Tobacco use disorder chronic [facility] Work Phone: Evaluation note* Diagnosis Onset Date Resolution Status Acute sinusitis acute Hypertriglyceridemia acute Palpitations acute HTN (hypertension) chronic Tobacco use disorder chronic Contact with or exposure to other viral diseases acute URI (upper respiratory infection) acute [facility] Work Phone: Evaluation note* Diagnosis Onset Date Resolution Status Plantar fasciitis of left foot acute Strain of left foot acute [facility] Work Phone: Evaluation note* Diagnosis Sinus congestion- Primary Other diseases of nasal cavity and sinuses Wheezing Nausea Nausea alone [facility] Insomnia- Primary Insomnia, unspecified [...] pain, acute, left [facility] Author Myra Null [facility] Note Date/Time May 25, 2025 1:54 am [facility] Medical Records Department [address] [place] [address] H&P Exam - Hospitalist 05/25/25 0037 MR#: [id number] Acct: [id number] Name: JOSEPH RINCON Rep #:[id number] : 1975 50 From: Myra Null MD [...] (>1/5 vodka daily) who presents to the [facility] ED on 05/25/25 with history of [...] 1, Zofran 4 mg IV x 1. [facility] Medical History Pancreatitis Hypokalemia Nausea & [...] (>1/5 vodka daily) who presents to the [facility] ED on 05/25/25 with history of [...] admission presentation. Charges/Coding Visit Charges Inpatient E&M: 10192 Init Hosp L3 05/25/25 0154 <Electronically signed by Myra Null MD> Cosigner Signature (if applicable): CC: Dr. Myra Null MD; Dr. Abisai Haley MD~ Signed [facility] Work Phone: Hospital Discharge instructions Additional Instructions Please follow-up with your PCP and pain management. Return for worsening of symptoms.[facility] Work Phone: Reason for referral (narrative)* Diagnostic Procedure Only (Urgent) - Pending Review Specialty Diagnoses / Procedures Referred By Contac t Referred To Contact XR IMAGING Diagnoses Hip pain, acute, left Procedures XR HIP GENERAL 3V PELV/AP/LAT LEFT RADEX HIP UNILATERAL WITH PELVIS 2-3 VIEWS Samantha Deleon APRN.CNP [address] [place] [address] Xr Imaging Referral ID Status Reason Start Date Expiration Date Visits Requested Visits Authorized [id number] Pending Review Auto-Generat ed Referral 07/21/2022 08/20/2023 1 1 [facility] for referral (narrative)* Diagnostic Procedure Only (Urgent) - Closed Specialty Diagnoses / Procedures Referred By Contac t Referred To Contact XR IMAGING Diagnoses Hip pain, acute, left Procedures XR HIP GENERAL 3V PELV/AP/LAT LEFT RADEX HIP UNILATERAL WITH PELVIS 2-3 VIEWS Samantha Deleon APRN.ASSEMBLING 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 [address] [place] [address] [place] [address] Referral ID Status Reason Start Date Expiration Date V isits Requested Visits Authorized [id number] Closed Auto-Generate d Referral 07/21/2022 08/20/2023 1 1 [facility] for referral (narrative)No reason for referral [facility] Work Phone: Reason for visit Narrative* Diagnostic Procedure Only (Urgent) - Closed Specialty Diagnoses / Procedures Referred By Contac t Referred To Contact XR IMAGING Diagnoses Hip pain, acute, left Procedures XR HIP GENERAL 3V PELV/AP/LAT LEFT RADEX HIP UNILATERAL WITH PELVIS 2-3 VIEWS Samantha Deleon APRN.CNP [address] [place] [address] [place] [address] Referral ID Status Reason Start Date Expiration Date V isits Requested Visits Authorized [id number] Closed Auto-Generate d Referral 07/21/2022 08/20/2023 1 1 [facility] Summary Purpose Family History No Family [...] No February 22, 2022 12:30pm Power of Per Diem Interpreter No February 22 12:30pm Advance Directive Response Recorded Date/ Time Advance Directives No February 23 8:55am Living Will No September 05 9:14pm Power of Per Diem Interpreter No September 05 9:14pm Advance Directive Response Recorded Date/ Time Advance Directives No February 23 7:55am Living Will No November 18 1:54pm Power of Per Diem Interpreter No November 18, 2022 1:54pm Advance Directive Response Recorded Date/ Time Advance Directives No February 23 7:55am Living Will No January 21 12:06pm Power of Per Diem Interpreter No January 21, 2023 12:06pm Advance Directive Response Recorded Date/ Time Advance Directives No February 23 8:55am Living Will No March 22, 2023 6:38pm Power of Per Diem Interpreter No March 22 6:38pm Advance Directive Response Recorded Date/ Time Advance Directives No February 23 8:55am Living Will No April 09, 2023 1 0:50pm Power of Per Diem Interpreter No April 09, 2023 10:50pm Advance Directive Response Recorded Date/ Time Advance Directives No February 23 8:55am Living Will No April 10, 2023 3 :53am Power of Per Diem Interpreter No April 10, 2023 3:53am Advance Directive Response Recorded Date/ Time Advance Directives No February 23 8:55am Living Will No May 04, 2023 9 :16pm Power of Per Diem Interpreter No May 04, 2023 9:16pm Advance Directive Response Recorded Date/ Time Advance Directives No February 23 8:55am Living Will No May 24, 2023 9:36pm Power of Per Diem Interpreter No May 24 9:36pm Advance Directive Response Recorded Date/ Time Advance Directives No February 23 8:55am Living Will No July 29 2:27pm Power of Per Diem Interpreter No July 29 2:27pm Advance Directive Response Recorded Date/ Time Advance Directives No February 23 8:55am Living Will No August 23, 2023 12:07pm Power of Per Diem Interpreter No July 12:07pm Advance Directive Response Recorded Date/ Time Advance Directives No February 23 7:55am Living Will No October 10 4:19pm Power of Per Diem Interpreter No October 10, 2023 4:19pm Advance Directive Response Recorded Date/ Time Advance Directives No February 23 8:55am Living Will No January 24 5:38pm Power of Per Diem Interpreter No January 24, 2024 5:38pm Advance Directive Response Recorded Date/ Time Do you have a Healthcare Power of Per Diem Interpreter? No April 04, 2025 11:50am Advance Directives No July 2:01pm Advance Directive Response Recorded Date/ Time Do you have a Healthcare Power of Per Diem Interpreter? No April 11, 2025 10:12pm Do you have a Healthcare Power of Per Diem Interpreter? No April 04, 2025 11:50am Advance Directives No July 2:01pm Advance Directive Response Recorded Date/ Time Do you have a Healthcare Power of Per Diem Interpreter? No April 11, 2025 10:12pm Do you have a Healthcare Power of Per Diem Interpreter? No April 04, 2025 11:50am Do you have a Healthcare Power of Per Diem Interpreter? No April 26, 2025 1:50pm Advance Directives No July 2:01pm Advance Directive Response Recorded Date/ Time Do you have a Healthcare Power of Per Diem Interpreter? No April 11, 2025 10:12pm Do you have a Healthcare Power of Per Diem Interpreter? No April 04, 2025 11:50am Do you have a Healthcare Power of Per Diem Interpreter? No April 26, 2025 6:15pm Advance Directives No July 2:01pm Advance Directive Response Recorded Date/ Time Do you have a Healthcare Power of Per Diem Interpreter? No April 11, 2025 10:12pm Do you have a Healthcare Power of Per Diem Interpreter? No April 04, 2025 11:50am Do you have a Healthcare Power of Per Diem Interpreter? No April 26, 2025 6:15pm Do you have a Healthcare Power of Per Diem Interpreter? No May 24, 2025 11:48pm Advance Directives No July 2:01pm Advance Directive Response Recorded Date/ Time Do you have a Healthcare Power of Per Diem Interpreter? No April 11, 2025 10:12pm Do you have a Healthcare Power of Per Diem Interpreter? No April 04, 2025 11:50am Do you have a Healthcare Power of Per Diem Interpreter? No April 26, 2025 6:15pm Do you have a Healthcare Power of Per Diem Interpreter? No May 25, 2025 2:53am Advance Directives No July 2:01pm Advance Directive Response Recorded Date/ Time Do you have a Healthcare Power of Per Diem Interpreter? No April 11, 2025 10:12pm Do you have a Healthcare Power of Per Diem Interpreter? No July 17, 2025 10:29am Do you have a Healthcare Power of Per Diem Interpreter? No April 04, 2025 11:50am Do you have a Healthcare Power of Per Diem Interpreter? No April 26, 2025 6:15pm Do you have a Healthcare Power of Per Diem Interpreter? No May 25, 2025 2:53am Advance Directives No July 2:01pm Advance Directive Response Recorded Date/ Time Do you have a Healthcare Power of Per Diem Interpreter? No April 11, 2025 10:12pm Do you have a Healthcare Power of Per Diem Interpreter? No July 17, 2025 1:34pm Do you have a Healthcare Power of Per Diem Interpreter? No April 04, 2025 11:50am Do you have a Healthcare Power of Per Diem Interpreter? No April 26, 2025 6:15pm Do you have a Healthcare Power of Per Diem Interpreter? No May 25, 2025 2:53am Advance Directives No July 2:01pm Advance Directive Response Recorded Date/ Time Do you have a Healthcare Power of Per Diem Interpreter? No July 17, 2025 1:34pm Do you have a Healthcare Power of Per Diem Interpreter? No August 12, 2025 8:21am Do you have a Healthcare Power of Per Diem Interpreter? No April 26, 2025 6:15pm Do you have a Healthcare Power of Per Diem Interpreter? No May 25, 2025 2:53am Advance Directives No July 2:01pm Advance Directive Response Recorded Date/ Time Do you have a Healthcare Power of Per Diem Interpreter? No July 17, 2025 1:34pm Do you have a Healthcare Power of Per Diem Interpreter? No August 12, 2025 1:20pm Do you have a Healthcare Power of Per Diem Interpreter? No April 26, 2025 6:15pm Do you have a Healthcare Power of Per Diem Interpreter? No May 25, 2025 2:53am Advance Directives [...] 2025 5:13p m [facility], [facility]25 12:33am Chief Complaint [...] 2025 5:13p m Admitted to alcohol detoxification [facility] May 25, 2025 12:33am Abdominal pain [...] 2025 5:13p m Admitted to alcohol detoxification [facility] May 25, 2025 12:33am History of [...] section and content) DATE CREATED AUTHOR 06/16/2021 [facility] DATE CREATED AUTHOR AUTHOR'S ORGANIZ ATION 04/24/2024 [facility] DATE CREATED AUTHOR AUTHOR'S ORGANIZ ATION 08/23/2025 [facility] Goals (unrecognized section and content) Goals may [...] or prosecute any alcohol or drug abuse patient.[facility] the event this information is protected by the Federal Confidentiality of Alcohol and Drug Abuse Patient Records regulations: The Federal rules restrict any use of the information to criminally investigate or prosecute any alcohol or drug abuse patient.[facility] HospitalIn the event this information is protected by the Federal Confidentiality of Alcohol and Drug Abuse Patient Records regulations: The Federal rules restrict any use of the information to criminally investigate or prosecute any alcohol or drug abuse patient.[facility] Reason for Visit (unrecogniz ed section and content) Reason Comments left hip pain X 3 days-cannot reca ll an injury Reason Comments Sinus Problem Nasal congestion, dr garland slight sore throat, nausea, cough, wheezing x 1 day Care Teams (unrecognized sec tion and content) Utilities Ground Worker Relationship Specialty Start Date End Date Ihsan [...] DO Primary Care Provider Active Dr. Lauri Gavirai MD Emergency Provider Active Team Status: Inactive [...] Care Provider, Referring Provider Active Jim Manriquez CARPENTER, CARPENTER-C Attending Provider Active Team Status: Inactive Member [...] DO Primary Care Provider Active Jim Manriquez CARPENTER, CARPENTER-C Attending Provider, Referring P ty Active Team [...] Attending Provider, Referring Provider Active Jim Manriquez CARPENTER, CARPENTER-C Other Provider Active Team Status: Inactive Member [...] Dr. Jose Taylor MD Attending Provider Active [employer] Ground Worker Relationship Specialty Start Date End Date LaurenIhsan gonzalez DO PCP - General Family Medicine 10/22/20 Util[employer] Ground Worker Relationship Specialty Start Date End Date LaurenIhsan [...] Active Start: April 27, 2025 Dr. Julius Mnocada MD Admit Provider Active St art: April [...] Provider Active Start: April 29, 2025 Dr. Caenlo Myers MD Other Provider Active Star t: [...] ctive Start: May 05, 2025 Dr. Julius Moncada MD Admitting physician Active Start: May 05, [...] Practitioner Active Start: May 06, 2025 Dr. aMo Becker DO Attending physician Active Start: May [...] Active S tart: August 15, 2025 Dr. Wellintgon Rader MD Emergency Depart ment Physician Active [...] BE BASED ON THE PRIMARY CLINICAL RECORDS. [employer] provides no warranty or guarantee of the accuracy or completeness of information in this document.
[2025-11-16] MEDS: Ketorolac 30 MG/ML Syringe IV (21:17)
[2025-11-16 21:19] LABS: Hematocrit 34.4 % (37-47); Hemoglobin 11.9 g/dL (12.0-15.0); Immature Granulocytes Count 0.030 X10^3/uL (0.0-0.0); Mean Corp Hgb Conc 34.6 g/dL (32-36); Mean Corpuscular Volume 100.0 fL (81-99); Mean Platelet Vol. 9.3 fl (6.2-12.0); NRBC Flagged by Analyzer 0.2 % (0-5); Platelet Count 273 K/mm3 (150-450); RBC Distribution Width CV 13.6 % (11.6-14.6); RBC Distribution Width SD 49.9 fl (35.1-43.9); Red Blood Count 3.44 M/mm3 (4.2-5.4); White Blood Count 9.3 K/mm3 (4.4-11.0)
[2025-11-16 21:29] LABS: Internal QC Validated? YES +Cl - CLEAR BKGD; Pregnancy, Serum, hCG Quali. NEGATIVE Negative
--- NOTE | 2025-11-16 21:40 | CT_ITS ---
PROCEDURE: CT ABDOMEN/PELVIS W IV CONT ONLY 11/16/2025 REASON FOR EXAM: LEFT FLANK PAIN. TECHNIQUE: Procedure Code: CTABDPELIV Modality: CT Procedure: ABDOMEN/PELVIS W IV CONT ONLY Coronal and Sagittal reconstruction series were provided. CONTRAST: Isovue 370 VOLUME: 98 mL One or more dose reduction techniques were used (e.g., Automated exposure control, adjustment of the mA and/or kV according to patient size, use of iterative reconstruction technique. RADIATION DOSE SUMMARY: DLP: 403.37 mGycm COMPARISON: 11/03/2025 FINDINGS: Lung bases: Clear. Liver: Diffuse hepatic steatosis. Gallbladder: Surgically absent. Spleen: Unremarkable. Pancreas: Parenchymal calcification in the region of the pancreatic head reflecting sequelae of chronic pancreatitis. Persistent peripancreatic fat stranding/edema from superimposed acute-subacute pancreatitis. No evidence for pancreatic necrosis or organized fluid collection/pseudocyst formation. Adrenals: Unremarkable. Kidneys: Unremarkable. No urolithiasis or hydroureteronephrosis. Bladder: Unremarkable. Reproductive Organs: Grossly unremarkable uterus and adnexae. Bowel: No evidence of obstruction. Mild generalized gastric and small bowel wall thickening suggestive of gastroenteritis. Normal appendix. Mild diffuse colonic wall thickening versus underdistention, potentially reflecting colitis. Persistent peripancreatic edematous fluid tracking along the left pericolic gutter. Lymph nodes: No suspicious lymph node enlargement. Multiple shotty subcentimeter presumed reactive mesenteric lymph nodes in the central abdomen. Vasculature: Normal in course and caliber. Mild atherosclerotic disease. Peritoneum / Retroperitoneum: Similar small volume abdominopelvic ascites. No free air. Bones: No significant abnormality. CT/Abdomen/Pelvis W IV Cont ONLY IMPRESSION: Ongoing inflammatory changes of acute on chronic pancreatitis. No evidence for necrosis or organized fluid collection/pseudocyst formation. Small volume abdominopelvic ascites. Findings suggestive of gastroenteritis and possibly colitis, although this may be due to underdistention or reactive due to the adjacent peripancreatic inflammatory changes. Marked diffuse hepatic steatosis. Reading Location: [facility]
[2025-11-16 21:43] LABS: AST(SGOT) 38 U/L (<=31); Alanine Aminotransfer ALT/SGPT 16 U/L (<=34); Albumin, Serum 3.5 g/dL (3.5-5.0); Alkaline Phosphatase 106 U/L (35-104); Anion Gap 20 (5-15); BUN 7 mg/dL (4-19); BUN/Creat Ratio 18.4 RATIO (10-20); Calcium,Total 9.5 mg/dL (7.6-11.0); Carbon Dioxide 28.0 mmol/L (21.0-32.0); Chloride 93 mmol/L (98-108); Estimated Creatinine Clearance 152.33 ml/min (50-250); Globulin 3.2 g/dL (2.2-4.2); Glucose 86 mg/dL (70-99); Potassium 2.9 mmol/L (3.3-5.1)
[2025-11-16 22:00] VITALS: BP 174/86; PULSE 90; RESP 25; O2SAT 92
[2025-11-16 22:09] LABS: Amylase 188 U/L (28-100); Lipase 164 U/L (13-75)
[2025-11-16 22:20] LABS: Mucous, Urine 0 SEEN /hpf (<or=2+)
[2025-11-16 22:44] LABS: Color, Urine Yellow (Yellow); Glucose, Dipstick Normal (Normal); Ketone-Dipstick 15 mg/dl (Negative); Leukocyte Esterase-Dipstick Negative /ul (Negative); Nitrite-Dipstick Negative (Negative); Occult Blood-Urine Negative /ul (Negative); Protein-Dipstick 15 mg/dl (Negative); Specific Gravity, Urine 1.010 (1.002-1.030); Urine Bilirubin Dipstick Negative (Negative)
[2025-11-16 22:54] LABS: Red Blood Cells-Urine 0 SEEN /hpf (0-5); Squamous Epithelial Cells - UA 0-5 SEEN /hpf (5-10)
[2025-11-16] MEDS: Potassium Chloride Oral Tablet 20 MEQ 40 MEQ PO (23:02)
[2025-11-16 23:24] VITALS: BP 159/91; PULSE 107; RESP 18; TEMP 36.1; O2SAT 97
== END 2025-11-16 23:27 | disposition home or self-care (01) ==
PROVIDERS: Emergency Provider Emergency Medicine; PCP Family Medicine; Visit Provider Emergency Medicine
DX: K52.9 Noninfective gastroenteritis and colitis, unspecified (principal); J44.9 Chronic obstructive pulmonary disease, unspecified; E11.9 Type 2 diabetes mellitus without complications; F17.200 Nicotine dependence, unspecified, uncomplicated; I10 Essential (primary) hypertension; R10.A0 Flank pain, unspecified side; E87.6 Hypokalemia; Z90.49 Acquired absence of other specified parts of digestive tract; I25.2 Old myocardial infarction; Z99.89 Dependence on other enabling machines and devices; Z87.19 Personal history of other diseases of the digestive system
CPT/HCPCS: 74177; 80053; 81001; 82150; 83690; 84703; 85025; 96374; 96375; 96376; 99285; A4216; J2405; Q9967

== ENCOUNTER 2025-11-18 06:22 | Inpatient (IN) | payer MEDICAID, SELFPAY ==
[2025-11-18] VITALS (12 sets, daily range): BP systolic 144–206; BP diastolic 79–104; PULSE 102–120; RESP 12–22; TEMP 36.6–37.2; O2SAT 95–100; BMI 20.7; BMI 20.6
--- NOTE | 2025-11-18 06:27 | CT_ITS ---
PROCEDURE: ABDOMEN/PELVIS W IV CONT ONLY 11/18/2025 REASON FOR EXAM: ABDOMINAL PAIN TECHNIQUE: Procedure Code: CTABDPELIV Modality: CT Procedure: ABDOMEN/PELVIS W IV CONT ONLY Coronal and Sagittal reconstruction series were provided. CONTRAST: Isovue 370 VOLUME: 70 mL One or more dose reduction techniques were used (e.g., Automated exposure control, adjustment of the mA and/or kV according to patient size, use of iterative reconstruction technique. RADIATION DOSE SUMMARY: DLP: 428.94 mGycm COMPARISON: CT abdomen/pelvis 11/16/2025 FINDINGS: Lower chest: Lung bases are clear. Liver: Normal size. Hepatic steatosis. No enhancing lesion. Gallbladder and biliary ducts: Cholecystectomy. Normal caliber intrahepatic and common bile ducts. Pancreas:Edematous pancreas. No evidence of pancreatic necrosis. Interval increase in peripancreatic fluid. Redemonstrated calcifications in the pancreatic head suggestive of chronic pancreatitis. No ductal dilatation or mass. Spleen: Unremarkable. Adrenal glands: Unremarkable. Kidneys and ureters: Normal renal size, morphology, and enhancement. No nephroureterolithiasis, hydroureteronephrosis, or renal mass. Urinary bladder: Unremarkable. GI: Unremarkable stomach and duodenum. Normal caliber small bowel and large bowel. Appendix: Unremarkable. Peritoneum: Redemonstrated small amount of abdominopelvic ascites. Tiny fat containing umbilical hernia. Lymph nodes: Multiple nonspecific subcentimeter shotty mesenteric lymph nodes. Otherwise, no lymphadenopathy. Vasculature: Portal, splenic, and superior mesenteric veins are patent. No abdominal aortic aneurysm. Atherosclerotic calcification of the abdominal aorta common iliac artery. Reproductive organs: Limited evaluation on CT. Uterus present. No adnexal mass. Musculoskeletal and soft tissues: No aggressive osseous lesions. Mild diffuse soft tissue edema. CT/Abdomen/Pelvis W IV Cont ONLY IMPRESSION: 1. Compared to CT of the abdomen and pelvis 11/16/2025, interval increase in pe ripancreatic fluid. Findings again compatible with acute edematous pancreatitis. No evidence of pancreatic necrosis. 2. Persistent abdominopelvic ascites. 3. Hepatic steatosis. 4. No other significant changes. Reading Location: [id number]
[2025-11-18] MEDS: 0.9% Normal Saline (1000mL) 1,000 ML 999 ML IV ×2 (06:31→08:41)
[2025-11-18 06:35] LABS: Hematocrit 39.7 % (37-47); Hemoglobin 13.4 g/dL (12.0-15.0); Immature Granulocytes Count 0.080 X10^3/uL (0.0-0.0); Mean Corp Hgb Conc 33.8 g/dL (32-36); Mean Corpuscular Volume 102.1 fL (81-99); Mean Platelet Vol. 9.6 fl (6.2-12.0); NRBC Flagged by Analyzer 0.1 % (0-5); Platelet Count 278 K/mm3 (150-450); RBC Distribution Width CV 13.5 % (11.6-14.6); RBC Distribution Width SD 50.6 fl (35.1-43.9); Red Blood Count 3.89 M/mm3 (4.2-5.4); White Blood Count 15.0 K/mm3 (4.4-11.0)
--- NOTE | 2025-11-18 06:36 | EX.ED.DYSGE1 ---
HPI History of Present Illness Chief Complaint: Abd Pain Narrative Narrative: Patient was seen and examined after presenting to ED for abdominal pain across the lower portion of her abdomen and the left side she has been seen here 2 other times for left-sided flank pain poorly was diagnosed with gastritis and colitis looks like from her CTs also showed an acute on chronic pancreatitis picture. [facility] Medical History Admitted to alcohol detoxification center Pancreatitis Hypokalemia Nausea & vomiting Intractable abdominal pain Strain of left foot Plantar fasciitis of left foot Acute otitis media, right Contact with or exposure to other viral diseases URI (upper respiratory infection) Alcohol abuse GERD (gastroesophageal reflux disease) CPAP (continuous positive airway pressure) dependence Smoker COPD (chronic obstructive pulmonary disease) Myocardial infarct Seizures History of left heart catheterization (LHC) (~11/19/22) Sleep apnea Pancreatitis Acute lumbar myofascial strain Strain of left hip Depression Anxiety Diabetes HTN (hypertension) Type 2 diabetes mellitus Home Medications ?Medication ?Instructions ?Recorded ?Last Taken ?Type metformin 500 mg tablet 500 ea PO BID DIABETES 10/31/22 11/02/25 History aspirin 81 mg chewable tablet 81 mg PO DAILY@0800 heart health 11/19/22 11/02/25 Rx #30 tabs bupropion HCl 150 mg 24 hr tablet, 150 mg PO DAILY mental health 01/21/23 11/02/25 History extended release montelukast 10 mg tablet 10 mg PO DAILY allergies 04/09/23 11/02/25 History (Singulair) cholecalciferol (vitamin D3) 50 50 mcg PO DAILY vitamin 08/25/23 11/02/25 History mcg (2,000 unit) capsule empagliflozin 25 mg tablet 25 mg PO DAILY diabetes 11/12/24 11/02/25 History (Jardiance) metoprolol succinate 25 mg 25 mg PO DAILY blood pressure 11/12/24 11/02/25 History tablet,extended release 24 hr amlodipine 5 mg tablet 5 mg PO DAILY blood pressure 04/04/25 11/02/25 History buspirone 5 mg tablet 5 mg PO TID PRN anxiety 04/04/25 11/02/25 History hydroxyzine HCl 10 mg tablet 10 mg PO Q8H PRN anxiety 04/04/25 11/02/25 History levocetirizine 5 mg tablet 5 mg PO DAILY allergies 04/11/25 11/02/25 History lisinopril 40 mg tablet 40 mg PO DAILY blood pressure 04/11/25 11/02/25 History budesonide-formoterol HFA 160 2 puff inhalation BID SOB 04/26/25 11/02/25 History mcg-4.5 mcg/actuation aerosol inhaler atorvastatin 40 mg tablet 40 mg PO QHS cholesterol 07/17/25 11/02/25 History fluoxetine 40 mg capsule 40 mg PO DAILY mental health 07/17/25 11/02/25 History lorazepam 1 mg tablet 1 mg PO BID PRN anxiety 08/12/25 08/11/25 History pantoprazole 40 mg tablet,delayed 40 mg PO DAILY 30 days #30 tabs 08/15/25 11/02/25 Rx release hydrocodone-acetaminophen 5-325mg 1 tab PO Q6H PRN PRN Pain 3 days 11/03/25 Unknown Rx 5mg-325mg #12 TABLETS potassium chloride 20 mEq 20 meq PO TID #20 tabs 11/16/25 Unknown Rx tablet,extended release(part/cryst) Allergy/AdvReac Type Severity Reaction Status Date / Time No Known Allergies Allergy Verified 11/18/25 06:26 Family History Grandfather CVA (cerebral vascular accident) Diabetes Mother Cancer Father Hypertension Grandmother Hypertension Diabetes Surgical History History of cholecystectomy H/O tooth extraction plantar fasciitis release Social History household members: spouse and children housing: house pets and animals: Yes Smoking Status: Light Smoker (<10/day) alcohol intake: current alcohol intake frequency: 3 or more drinks per day Alcohol type: hard liquor details: At least 1/5 vodka daily, recently increased EtOH intake. substance use type: does not use ROS ROS ED ROS Narrative Pertinent Positives: Nausea vomiting abdominal pain Pertinent Negatives: Fevers chills urinary symptoms black or bloody stools chest pain pressure shortness of breath The remainder of review of systems negative unless otherwise stated in the HPI above. Systems reviewed including constitutional, psychiatric, cardiovascular, respiratory, integument, HENT, gastrointestinal. EXAM Physical Exam Narrative Exam Narrative: Afebrile hemodynamically stable although she is tachycardic her blood pressure is elevated normal heart and lung sounds abdomen is soft nondistended but has diffuse tenderness no overlying skin changes. Intact and equal MSPs in her extremities she is warm and well-perfused Const Vital Signs: 11/18/25 06:22 Temperature 98.2 F Temperature Source Oral Pulse Rate 120 H Respiratory Rate 22 H Blood Pressure 179/104 H Blood Pressure Mean 129 Pulse Ox 95 Oxygen Delivery Method Room Air MDM MDM MDM Narrative Medical decision making narrative: Nursing notes, triage notes, available previous documentation, and vital signs were reviewed. Any discrepancies noted were addressed. Differential Diagnoses: Need to consider intra-abdominal pathology such as appendicitis diverticular disease pancreatitis lower suspicion for mesenteric ischemia UTI pyelonephritis nephrolithiasis Interventions: Morphine Zofran magnesium replacement potassium replacement Fluids Given: 2 L normal saline Labs Reviewed: Patient has a leukocytosis of 15 hemoglobin is 13.4. Lactic acid is 1.2. Patient's urinalysis is showing 150 ketones but no significant evidence of infection. Imaging Reviewed: CT abdomen pelvis is currently pending Previous Documentation Reviewed: None available or applicable at this time. ED Course: Patient presenting with rather diffuse abdominal pain although she is complaining more on the left side appears that she has a history of pancreatitis as well we will get labs and more imaging as well as a urinalysis. 0637: Patient has a leukocytosis whereas few days ago she did not. 0808: Patient's lactic acid is only 1.2 she has a mild hypokalemia at 2.9 hypochloremia there is an anion gap of 17 creatinine 0.42 she does have an elevated lipase level at 753 I have a higher suspicion for this being a pancreatitis picture. Patient will have potassium replacement magnesium replacement additional IV fluids. Patient will be endorsed to oncoming physician see her separate note or addendum regarding final disposition This note was made utilizing voice recognition software. All attempts were made to correct spelling or other errors prior to note completion. However, due to the fast-paced nature of emergency medicine, some errors may still be present. Lab Data Labs: Laboratory Results - last 24 hr 11/18/25 11/18/25 11/18/25 06:30 06:32 07:05 WBC 15.0 H RBC 3.89 L Hgb 13.4 Hct 39.7 MCV 102.1 H MCH 34.4 H MCHC 33.8 RDW Std Deviation 50.6 H RDW Coeff of [place] 13.5 Plt Count 278 MPV 9.6 Immature Gran % (Auto) 0.500 Neut % (Auto) 89.0 H Lymph % (Auto) 5.7 L [place] % (Auto) 4.3 Eos % (Auto) 0.2 Baso % (Auto) 0.3 Absolute Neuts (auto) 13.3 H Absolute Lymphs (auto) 0.85 Nucleated RBC % 0.1 Sodium Cancelled 136 Potassium Cancelled 2.9 L Chloride Cancelled 90 L Carbon Dioxide Cancelled 28.7 Anion Gap Cancelled 17 H BUN Cancelled 7 Creatinine Cancelled 0.42 L Estim Creat Clear Calc Cancelled 141.45 Est GFR (MDRD) Non-Af Cancelled 121 BUN/Creatinine Ratio Cancelled 17.1 Glucose Cancelled 163 H Lactic Acid 1.2 Calcium Cancelled 8.0 Total Bilirubin Cancelled 1.18 AST Cancelled 31 ALT Cancelled 11 Alkaline Phosphatase Cancelled 99 Total Protein Cancelled 6.1 Albumin Cancelled 3.1 L Globulin Cancelled 3.0 Albumin/Globulin Ratio Cancelled 1.0 Lipase Cancelled 753 H Urine Color Urine Clarity Urine pH Ur Specific [place] Urine Protein Urine Glucose (UA) Urine Ketones Urine Occult Blood Urine Nitrite Urine Bilirubin Urine Urobilinogen Ur Leukocyte Esterase Urine RBC Urine WBC Ur Squamous Epith Cells Urine Bacteria Urine Mucus 11/18/25 07:13 WBC RBC Hgb Hct MCV MCH MCHC RDW Std Deviation RDW Coeff of [place] Plt Count MPV Immature Gran % (Auto) Neut % (Auto) Lymph % (Auto) [place] % (Auto) Eos % (Auto) Baso % (Auto) Absolute Neuts (auto) Absolute Lymphs (auto) Nucleated RBC % Sodium Potassium Chloride Carbon Dioxide Anion Gap BUN Creatinine Estim Creat Clear Calc Est GFR (MDRD) Non-Af BUN/Creatinine Ratio Glucose Lactic Acid Calcium Total Bilirubin AST ALT Alkaline Phosphatase Total Protein Albumin Globulin Albumin/Globulin Ratio Lipase Urine Color Yellow Urine Clarity Sl. Cloudy Urine pH 6.5 Ur Specific [place] 1.015 Urine Protein 30 H Urine Glucose (UA) Normal Urine Ketones 150 A* Urine Occult Blood 10 H Urine Nitrite Negative Urine Bilirubin 1 H Urine Urobilinogen 4 H Ur Leukocyte Esterase 25 H Urine RBC 0-5 SEEN Urine WBC 0-5 SEEN Ur Squamous Epith Cells 10-25 SEEN Urine Bacteria 2+ Urine Mucus 1+ Discharge Plan Triage Chief Complaint: Abd Pain ED Provider: Shruti Eddy Dx/Rx/DC Orders Clinical Impression: Abdominal pain, Acute hypokalemia, Elevated lipase, History of chronic pancreatitis Prescriptions: No Action metformin 500 mg tablet 500 ea PO BID cholecalciferol (vitamin D3) 50 mcg (2,000 unit) capsule 50 mcg PO DAILY aspirin 81 mg Tablet,Chewable 81 mg PO DAILY@0800 Qty: 30 0RF bupropion HCl 150 mg tablet extended release 24 hr 150 mg PO DAILY Patient Comments: take 1 tablet by mouth once daily montelukast [Singulair] 10 mg Tablet 10 mg PO DAILY lisinopril 40 mg tablet 40 mg PO DAILY levocetirizine 5 mg tablet 5 mg PO DAILY fluoxetine 40 mg capsule 40 mg PO DAILY atorvastatin 40 mg tablet 40 mg PO QHS lorazepam 1 mg tablet 1 mg PO BID PRN (Reason: anxiety) pantoprazole 40 mg tablet,delayed release (DR/EC) 40 mg PO DAILY 30 Days Qty: 30 0RF metoprolol succinate 25 mg tablet extended release 24 hr 25 mg PO DAILY Jardiance 25 mg tablet 25 mg PO DAILY buspirone 5 mg tablet 5 mg PO TID PRN (Reason: anxiety) amlodipine 5 mg tablet 5 mg PO DAILY hydroxyzine HCl 10 mg tablet 10 mg PO Q8H PRN (Reason: anxiety) budesonide-formoterol 160-4.5 mcg/actuation HFA aerosol inhaler 2 puff INHALATION BID hydrocodone-acetaminophen 5-325 mg tablet 1 tab PO Q6H PRN PRN (Reason: Pain) 3 Days Qty: 12 0RF potassium chloride 20 mEq tablet,ER particles/crystals 20 meq PO TID Qty: 20 0RF Primary Care Provider: Abisai Haley Referrals: Abisai Haley MD [Primary Care Provider, Family Practice] Print Language: Uzbek
--- OUTSIDE RECORDS SUMMARY | 2025-11-18 06:41 | XMS RPT_ITS | CCD ---
Author Organization [facility]iniSy[facility] Care Team Providers Care Virtual Classroom Manager Name Role Phone Required, No Pcp Unavailable [...] Provider Dr. Young Kiran Referring Provider Ganesh NEEDLE PUNCH 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 HELPER, NEEDLE PUNCH 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 HELPER-C Jim Attending Provider Jose, DO Milana M Primary Care Provider Jose, DO Milana M Referring Provider Beau SMITH PA [place]o Attending Provider Jose, DO Milana M Primary Care Provider Jose, DO Milana M Primary Care Provider Jose, DO Milana M Referring Provider LUIS Rosario Attending Provider Ganesh NEEDLE PUNCH 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 HELPER, NEEDLE PUNCH 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 HELPER-C Jim Attending Provider LUIS Gramajo Attending Provider Jose, DO Milana M Primary Care Provider Jose, DO Milana M Referring Provider LUIS Gramajo Attending Provider Dr. Jose Taylor Attending Provider Ihsan Aguilar DO Primary Care Provider [phone] IHSAN AGUILAR Primary Care Unavailable Sudha LEBLANC, Abisai Primary Care Provider Dr. Imani Knight DO Emergency Provider Dr. Imani Knight DO Attending Provider Dr. Francisco Colon MD Emergency Provider Dr. Francisco Colon MD Attending Provider Dr. Humphrey Garcia DO Referring Provider Dr. Humphrey Garcia DO Emergency Provider Antwan LEBLANC, Dr. [place] Admit [facility] Attending Provider Dashawn Moncada MD, Dr. [place] Other Provider Unavailab rob Becker DO, Dr. Cavanaugh Attending Provider Lucia LEBLANC, Dr. Lemos Other Provider Unavailable Antwan LEBLANC, Dr. [place] Attending Provider Dashawn Myers MD, Dr. Lemos Attending Provider Unavaila tommie Becker DO, Dr. Cavanaugh Other Provider [facility], Dr. Morales Emergency Provider Chaka LEBLANC, [...] Provider Radha STARK, Dr. Yin Emergency Provider nAtwan LEBLANC, Dr. [place] Admit Provider Unavailab rob [...] Drug Class(es) Dates Sig (Normalized) Sig (Original) [id number] 200 actuat albuterol 0.09 mg/actuat metered dose [...] 05-24-2025 Start: 04-09-2023 End: 05-24-2025 Budesonide-Formoterol (Symbi emrced) 80-4.5 mcg/actuation Hfa Aerosol Inhaler Discontinued 1 [...] tablet (2 sources) Opioid Antagonist Start: 5 Butte-3 Fatty Acids (3 sources) Start: 3 take 1000 mg by mouth once daily Butte-3 Fatty Acids Active 1000 MG PO DAILY August 24, 2023 11:00pm Start: 08-25-2023 take 1000 mg by mouth once colleen ly Butte-3 Fatty Acids Active 1000 MG PO DAILY [...] 20 mg/ml oral solution (16 sources) Uncompetitive M-snuqml-E-aspartate Receptor Antagonist, Sigma-1 Agonist Start: 07-01-2023 End: [...] 17, 2023 12:00am February 18, 2023 12:05am Butte-3 Fatty Acids 1,000 mg capsule (6 sources) Start: 08-25-2023 End: 05-06-2025 take 1 capsule by mouth once daily Butte-3 Fatty Acids 1,000 mg capsule Discontinued 1000 mg PO DAILY August 25, 2023 12:00am May 06, 2025 1:18pm Start: 08-25-2023 take 1 capsule by [facility] once daily Butte-3 Fatty Acids 1,000 mg capsule Active 1000 [...] Comment on above: Take 1 tablet by [facility] every 6 hours as needed for Nausea/Vomiting. [...] 08-23-2025 Ionized Calcium 1.01 mmol/L Low 1.09-1.30 [facility] Comment on above: Performed By: #### L 501.2276, L501.6901 ####[facility] [address] [place], [address] Liver Profileon 08-16-2025 ALB Normal 3.5-5.0 [facility] Comment on above: Result Comment: Canc elled via OM: Order cancelled - Patient discharged Performed By: #### L 500.3400 ####[facility] [address] [place], [address] ALK PHOS Normal 35-104 [facility] Comment on above: Result Comment: Canc elled via OM: Order cancelled - Patient discharged Performed By: #### L 500.3400 ####[facility] [address] [place], [address] ALT Normal <=34 [facility] Comment on above: Result Comment: Canc elled via OM: Order cancelled - Patient discharged Performed By: #### L 500.3400 ####[facility] [address] [place], [address] AST Normal <=31 [facility] Comment on above: Result Comment: Canc elled via OM: Order cancelled - Patient discharged Performed By: #### L 500.3400 ####[facility] [address] [place], [address] D BILI Normal 0.00-0.30 [facility] Comment on above: Result Comment: Canc elled via OM: Order cancelled - Patient discharged Performed By: #### L 500.3400 ####[facility] [address] [place], [address] T BILI Normal 0.00-1.30 [facility] Comment on above: Result Comment: Canc elled via OM: Order cancelled - Patient discharged Performed By: #### L 500.3400 ####[facility] [address] [place], [address] T PROT Normal 5.9-8.4 [facility] Comment on above: Result Comment: Canc elled via OM: Order cancelled - Patient discharged Performed By: #### L 500.3400 ####[facility] [address] [place], [address] Anion gap in Serum or Plasma Ordered By: Zev Tucker on 08-15-2025 Anion gap [Moles/Vol] 11 mmol/L 5-15 [facility] BUN/creatinine ratioOrdered By: Zev Tucker on 08-15-2025 Urea nitrogen/Creatinine [Mass ratio] 9.5 mg/mg Low 10- [facility] Basic Metabolic Profile (BMP )on 08-15-2025 BUN/CRE 9.5 RATIO Low - [facility] Comment on above: Performed By: #### L 500.3400, L500.2500 ####[facility] [address] [place], [address] Calcium [Mass/Vol] 8.1 mg/dL Normal 7.6-11.0 [facility] Comment on above: Performed By: #### L 500.3400, L500.2500 ####[facility] [address] [place], [address] Chloride [Moles/Vol] 98 mmol/L Normal 98-108 [facility] Comment on above: Performed By: #### L 500.3400, L500.2500 ####[facility] [address] [place], [address] CO2 [Moles/Vol] 31.5 mmol/L Normal 21.0-32.0 [facility] Comment on above: Performed By: #### L 500.3400, L500.2500 ####[facility] [address] [place], [address] Creatinine [Mass/Vol] 0.39 mg/dL Low 0.70-1.20 [facility] Comment on above: Performed By: #### L 500.3400, L500.2500 ####[facility] [address] [place], [address] ECRCL 149.83 ml/min Normal 50-250 [facility] Comment on above: Performed By: #### L 500.3400, L500.2500 ####[facility] [address] [place], [address] GAP 11 Normal 5-15 [facility] Comment on above: Performed By: #### L 500.3400, L500.2500 ####[facility] [address] [place], [address] GFR/1.73 sq M.predicted among non-blacks MDRD (S/P/Bld) [Vol rate/Area] 123 mL/min/{1.73_m2} Normal >60 [facility] Comment on above: Result Comment: mL/m in/1.73m2 CKD-EPI Creatinine Equation (2020) Performed By: #### L 500.3400, L500.2500 ####[facility] [address] [place], [address] Glucose [Mass/Vol] 162 mg/dL High 70-99 [facility] Comment on above: Performed By: #### L 500.3400, L500.2500 ####[facility] [address] [place], [address] Potassium [Moles/Vol] 3.4 mmol/L Normal 3.3-5.1 [facility] Comment on above: Performed By: #### L 500.3400, L500.2500 ####[facility] [address] [place], [address] Sodium [Moles/Vol] 140 mmol/L Normal 133-145 [facility] Comment on above: Performed By: #### L 500.3400, L500.2500 ####[facility] [address] [place], [address] Urea nitrogen [Mass/Vol] 4 mg/dL Normal 4-19 [facility] Comment on above: Performed By: #### L 500.3400, L500.2500 ####[facility] [address] [place], [address] Bedside Glucoseon 08-15-2025 FINGERSTICK GLU 241 mg/dL High 74-106 [facility] Comment on above: Result Comment: CHAUNCEY GEMENT OF PATIENT CARE PER NURSING PROTOCOL Performed By: #### L 501.080 ####[facility] [address] [place], [address] FINGERSTICK GLU 268 mg/dL High -106 [facility] Comment on above: Result Comment: CHAUNCEY GEMENT OF PATIENT CARE PER NURSING PROTOCOL Performed By: #### L 501.080 ####[facility] [address] [place], [address] FINGERSTICK GLU 179 mg/dL High -106 [facility] Comment on above: Result Comment: CHAUNCEY GEMENT OF PATIENT CARE PER NURSING PROTOCOL Performed By: #### L 501.080 ####[facility] [address] [place], [address] Bilirubin directOrdered By: Zev Tucker on 08-15-2025 Bilirubin.direct [Mass/Vol] 0.72 mg/dL High 0.00-0.30 [facility] Bilirubin, totalOrdered By: Zev Tucker on 08-15-2025 Bilirubin [Mass/Vol] 1.19 mg/dL 0.00-1.30 [facility] Carbon dioxide, total [Moles /volume] in Central venous bloodOrdered By: Zev Tucker on 08-15-2025 CO2 [Moles/Vol] 31.5 mmol/L 21.0-32.0 [facility] Chloride assayOrdered By: Maria Antonia Tucker on 08-15-2025 Chloride [Moles/Vol] 98 mmol/L 98-108 [facility] Culture, Blood (WB)on 2024 CUB Normal [facility] Comment on above: Performed By: #### L 500.2500, L501.2300, M200.1000 ####[facility] [address] [place], [address] Discharge Instructionon 07-30 Discharge Instruction Normal [facility] Glomerular filtration rate ( GFR) estimation/1.73 sq m using serum, plasma, or whole bOrdered By: Zev Tucker on 08-15-2025 GFR/1.73 sq M.predicted among non-blacks MDRD (S/P/Bld) [Vol rate/Area] 123 mL/min/{1.73_m2} >60 [facility] deOrdered By: Zev Tucker on 08-15-2025 Glucose [Mass/Vol] 241 mg/dL High 74-106 [facility] Liver Profileon 08-15-2025 Albumin [Mass/Vol] 3.1 g/dL Low 3.5-5.0 [facility] Comment on above: Performed By: #### L 500.3400, L500.2500 ####[facility] [address] [place], [address] ALK PHOS 344 U/L High 35-104 [facility] Comment on above: Performed By: #### L 500.3400, L500.2500 ####[facility] [address] [place], [address] ALT [Catalytic activity/Vol] 37 U/L High <=34 [facility] Comment on above: Performed By: #### L 500.3400, L500.2500 ####[facility] [address] [place], [address] AST [Catalytic activity/Vol] 111 U/L High <=31 [facility] Comment on above: Performed By: #### L 500.3400, L500.2500 ####[facility] [address] [place], [address] Bilirubin [Mass/Vol] 1.19 mg/dL Normal 0.00-1.30 [facility] Comment on above: Performed By: #### L 500.3400, L500.2500 ####[facility] [address] [place], [address] Bilirubin.direct [Mass/Vol] 0.72 mg/dL High 0.00-0.30 [facility] Comment on above: Performed By: #### L 500.3400, L500.2500 ####[facility] [address] [place], [address] Globulin (S) [Mass/Vol] 2.4 g/dL Normal 2.2-4.2 [facility] Comment on above: Performed By: #### L 500.3400, L500.2500 ####[facility] [address] [place], [address] T PROT 5.4 g/dL Low 5.9-8.4 [facility] Comment on above: Performed By: #### L 500.3400, L500.2500 ####[facility] [address] [place], [address] Modified Barium Swallow Stud yon 08-15-2025 Modified Barium Swallow Study Normal [facility] No Panel InformationOrdered By: Zev Tucker on 08-15-2025 111 U/L High <32 [facility] Potassium measurement (mass/ volume)Ordered By: Zev Tucker on 08-15-2025 Potassium (Unsp spec) [Mass/Vol] 3.4 mmol/L 3.3-5.1 [facility] Serum creatinine measurement (mass/volume)Ordered By: Zev Tucker on 08-15-2025 Creatinine [Mass/Vol] 0.39 mg/dL Low 0.70-1.20 [facility] Serum globulin measurementOr dered By: Zev Tucker on 08-15-2025 Globulin (S) [Mass/Vol] 2.4 g/dL 2.2-4.2 [facility] Serum glucose measurement (m ass/volume)Ordered By: Zev Tucker on 08-15-2025 Glucose [Mass/Vol] 162 mg/dL High 70-99 [facility] Serum or plasma alanine wilkerson otransferase (ALT) measurementOrdered By: Zev Tucker on 08-15-2025 ALT [Catalytic activity/Vol] 37 U/L High <35 [facility] Serum or plasma albumin alphonso urement (mass/volume)Ordered By: Zev Tucker on 08-15-2025 Albumin [Mass/Vol] 3.1 g/dL Low 3.5-5.0 [facility] Serum or plasma alkaline trinity sphatase measurementOrdered By: Zev Tucker on 08-15-2025 ALP [Catalytic activity/Vol] 344 U/L High 35-104 [facility] Serum or plasma calcium alphonso urement (mass/volume)Ordered By: Zev Tucker on 08-15-2025 Calcium [Mass/Vol] 8.1 mg/dL 7.6-11.0 [facility] Serum or plasma urea nitroge n measurement (mass/volume)Ordered By: Zev Tucker on 08-15-2025 Urea nitrogen [Mass/Vol] 4 mg/dL 4-19 [facility] Sodium levelOrdered By: Tessa Tucker on 08-15-2025 Sodium [Moles/Vol] 140 mmol/L 133-145 [facility] Total proteinOrdered By: Candice Tucker on 08-15-2025 Protein [Mass/Vol] 5.4 g/dL Low 5.9-8.4 [facility] Basic Metabolic Profile (BMP )on 08-14-2025 BUN/CRE 7.8 RATIO Low 10-20 [facility] Comment on above: Performed By: #### L 500.3400, L501.5200, L500.2500 ####[facility] [address] [place], [address] Calcium [Mass/Vol] 7.8 mg/dL Normal 7.6-11.0 [facility] Comment on above: Performed By: #### L 500.3400, L501.5200, L500.2500 ####[facility] [address] [place], [address] Chloride [Moles/Vol] 96 mmol/L Low 98-108 [facility] Comment on above: Performed By: #### L 500.3400, L501.5200, L500.2500 ####[facility] [address] [place], [address] CO2 [Moles/Vol] 30.8 mmol/L Normal 21.0-32.0 [facility] Comment on above: Performed By: #### L 500.3400, L501.5200, L500.2500 ####[facility] [address] [place], [address] Creatinine [Mass/Vol] 0.44 mg/dL Low 0.70-1.20 [facility] Comment on above: Performed By: #### L 500.3400, L501.5200, L500.2500 ####[facility] [address] [place], [address] ECRCL 135.02 ml/min Normal 50-250 [facility] Comment on above: Performed By: #### L 500.3400, L501.5200, L500.2500 ####[facility] [address] [place], [address] GAP 13 Normal 5-15 [facility] Comment on above: Performed By: #### L 500.3400, L501.5200, L500.2500 ####[facility] [address] [place], [address] GFR/1.73 sq M.predicted among non-blacks MDRD (S/P/Bld) [Vol rate/Area] 119 mL/min/{1.73_m2} Normal >60 [facility] Comment on above: Result Comment: mL/m in/1.73m2 CKD-EPI Creatinine Equation (2020) Performed By: #### L 500.3400, L501.5200, L500.2500 ####[facility] [address] [place], [address] Glucose [Mass/Vol] 131 mg/dL High 70-99 [facility] Comment on above: Performed By: #### L 500.3400, L501.5200, L500.2500 ####[facility] [address] [place], [address] Potassium [Moles/Vol] 3.0 mmol/L Low 3.3-5.1 [facility] Comment on above: Performed By: #### L 500.3400, L501.5200, L500.2500 ####[facility] [address] [place], [address] Sodium [Moles/Vol] 140 mmol/L Normal 133-145 [facility] Comment on above: Performed By: #### L 500.3400, L501.5200, L500.2500 ####[facility] [address] [place], [address] Urea nitrogen [Mass/Vol] 3 mg/dL Low 4-19 [facility] Comment on above: Performed By: #### L 500.3400, L501.5200, L500.2500 ####[facility] [address] [place], [address] Bedside Glucoseon 08-14-2025 FINGERSTICK GLU 177 mg/dL High 74-106 [facility] Comment on above: Result Comment: CHAUNCEY GEMENT OF PATIENT CARE PER NURSING PROTOCOL Performed By: #### L 501.080 ####[facility] [address] [place], [address] FINGERSTICK GLU 112 mg/dL High 74-106 [facility] Comment on above: Result Comment: CHAUNCEY GEMENT OF PATIENT CARE PER NURSING PROTOCOL Performed By: #### L 501.080 ####[facility] [address] [place], [address] FINGERSTICK GLU 223 mg/dL High 74-106 [facility] Comment on above: Result Comment: CHAUNCEY GEMENT OF PATIENT CARE PER NURSING PROTOCOL Performed By: #### L 501.080 ####[facility] [address] [place], [address] FINGERSTICK GLU 138 mg/dL High 74-106 [facility] Comment on above: Result Comment: CHAUNCEY GEMENT OF PATIENT CARE PER NURSING PROTOCOL Performed By: #### L 501.080 ####[facility] [address] [place], [address] Consultation - Infectious Dx on 08-14-2025 Consultation - Infectious Dx Normal [facility] Liver Profileon 08-14-2025 Albumin [Mass/Vol] 3.1 g/dL Low 3.5-5.0 [facility] Comment on above: Performed By: #### L 500.3400, L501.5200, L500.2500 ####[facility] [address] [place], [address] ALK PHOS 229 U/L High 35-104 [facility] Comment on above: Performed By: #### L 500.3400, L501.5200, L500.2500 ####[facility] [address] [place], [address] ALT [Catalytic activity/Vol] 40 U/L High <=34 [facility] Comment on above: Performed By: #### L 500.3400, L501.5200, L500.2500 ####[facility] [address] [place], [address] AST [Catalytic activity/Vol] 110 U/L High <=31 [facility] Comment on above: Performed By: #### L 500.3400, L501.5200, L500.2500 ####[facility] [address] [place], [address] Bilirubin [Mass/Vol] 1.04 mg/dL Normal 0.00-1.30 [facility] Comment on above: Performed By: #### L 500.3400, L501.5200, L500.2500 ####[facility] [address] [place], [address] Bilirubin.direct [Mass/Vol] 0.66 mg/dL High 0.00-0.30 [facility] Comment on above: Performed By: #### L 500.3400, L501.5200, L500.2500 ####[facility] [address] [place], [address] Globulin (S) [Mass/Vol] 2.6 g/dL Normal 2.2-4.2 [facility] Comment on above: Performed By: #### L 500.3400, L501.5200, L500.2500 ####[facility] [address] [place], [address] T PROT 5.6 g/dL Low 5.9-8.4 [facility] Comment on above: Performed By: #### L 500.3400, L501.5200, L500.2500 ####[facility] [address] [place], [address] Magnesiumon 08-14-2025 Magnesium [Mass/Vol] 1.9 mg/dL Normal 1.5-2.2 [facility] Comment on above: Performed By: #### L 500.3400, L501.5200, L500.2500 ####[facility] [address] [place], [address] Magnesium measurement (mass/ volume)Ordered By: Zev Tucker on 08-14-2025 Magnesium (Unsp spec) [Mass/Vol] 1.9 mg/dL 1.5-2.2 [facility] Urine Cultureon 08-14-2025 URC Below infection leve l. Mixed Gram Pos Gram Neg Org [place] Count 1000-10,000 MIXC Mixed contaminants. Submit a new specimen if indicated. Normal [facility] Comment on above: Performed By: #### M 100.2200, M300.4600 ####[facility] [address] [place], [address] Absolute lymphocyte countOrd ered By: Zev Tucker on 08-13-2025 Lymphocytes Auto (Unsp spec) [#/Vol] 0.83 10*3/uL 0.83-4.51 [facility] Automated lymphocyte count a s percentage of total leukocytesOrdered By: Zev Tucekr on 08-13-2025 Lymphocytes/100 WBC Auto (Unsp spec) 13.0 % Low 19-41 [facility] Basic Metabolic Profile (BMP )on 08-13-2025 BUN Normal 4-19 [facility] Comment on above: Result Comment: Patricia elled via OM: MD Ordered Performed By: #### L 500.2500 ####[facility] [address] [place], [address] BUN/CRE Normal 10-20 [facility] Comment on above: Result Comment: Patricia elled via OM: MD Ordered Performed By: #### L 500.2500 ####[facility] [address] [place], [address] Calcium Normal 7.6-11.0 [facility] Comment on above: Result Comment: Patricia elled via OM: MD Ordered Performed By: #### L 500.2500 ####[facility] [address] [place], [address] CL Normal 98-108 [facility] Comment on above: Result Comment: Patricia elled via OM: MD Ordered Performed By: #### L 500.2500 ####[facility] [address] [place], [address] CO2 Normal 21.0-32.0 [facility] Comment on above: Result Comment: Patricia elled via OM: MD Ordered Performed By: #### L 500.2500 ####[facility] [address] [place], [address] CREAT,SERUM Normal 0.70-1.20 [facility] Comment on above: Result Comment: Canc elled via OM: MD Ordered Performed By: #### L 500.2500 ####[facility] [address] [place], [address] eGFR Normal >60 [facility] Comment on above: Result Comment: Canc elled via OM: MD Ordered Performed By: #### L 500.2500 ####[facility] [address] [place], [address] GAP Normal 5-15 [facility] Comment on above: Result Comment: Canc elled via OM: MD Ordered Performed By: #### L 500.2500 ####[facility] [address] [place], [address] GLU Normal 70-99 [facility] Comment on above: Result Comment: Canc elled via OM: MD Ordered Performed By: #### L 500.2500 ####[facility] [address] [place], [address] Potassium Normal 3.3-5.1 [facility] Comment on above: Result Comment: Canc elled via OM: MD Ordered Performed By: #### L 500.2500 ####[facility] [address] [place], [address] Basic Metabolic Profile (BMP) Normal 133-145 [facility] Comment on above: Result Comment: Canc elled via OM: MD Ordered Performed By: #### L 500.2500 ####[facility] [address] [place], [address] BUN Normal 4-19 [facility] Comment on above: Result Comment: Canc elled via OM: MD Ordered Performed By: #### L 500.2500 ####[facility] [address] [place], [address] BUN/CRE Normal 10-20 [facility] Comment on above: Result Comment: Canc elled via OM: MD Ordered Performed By: #### L 500.2500 ####[facility] [address] [place], [address] Calcium Normal 7.6-11.0 [facility] Comment on above: Result Comment: Canc elled via OM: MD Ordered Performed By: #### L 500.2500 ####[facility] [address] [place], [address] CL Normal 98-108 [facility] Comment on above: Result Comment: Canc elled via OM: MD Ordered Performed By: #### L 500.2500 ####[facility] [address] [place], [address] CO2 Normal 21.0-32.0 [facility] Comment on above: Result Comment: Canc elled via OM: MD Ordered Performed By: #### L 500.2500 ####[facility] [address] [place], [address] CREAT,SERUM Normal 0.70-1.20 [facility] Comment on above: Result Comment: Canc elled via OM: MD Ordered Performed By: #### L 500.2500 ####[facility] [address] [place], [address] eGFR Normal >60 [facility] Comment on above: Result Comment: Canc elled via OM: MD Ordered Performed By: #### L 500.2500 ####[facility] [address] [place], [address] GAP Normal 5-15 [facility] Comment on above: Result Comment: Canc elled via OM: MD Ordered Performed By: #### L 500.2500 ####[facility] [address] [place], [address] GLU Normal 70-99 [facility] Comment on above: Result Comment: Canc elled via OM: MD Ordered Performed By: #### L 500.2500 ####[facility] [address] [place], [address] Potassium Normal 3.3-5.1 [facility] Comment on above: Result Comment: Patricia stacy via OM: Ordered Performed By: #### L 500.2500 ####[facility] [address] [place], [address] Basic Metabolic Profile (BMP) Normal 133-145 [facility] Comment on above: Result Comment: Patricia stacy via OM: Ordered Performed By: #### L 500.2500 ####[facility] [address] [place], [address] BUN/CRE 13.1 RATIO Normal 10-20 [facility] Comment on above: Performed By: #### L 501.5200, L500.2500, L100.0100, L501.9985 ####[facility] [address] [place], [address] Calcium [Mass/Vol] 6.7 mg/dL Low 7.6-11.0 [facility] Comment on above: Performed By: #### L 501.5200, L500.2500, L100.0100, L501.9985 ####[facility] [address] [place], [address] Chloride [Moles/Vol] 102 mmol/L Normal 98-108 [facility] Comment on above: Performed By: #### L 501.5200, L500.2500, L100.0100, L501.9985 ####[facility] [address] [place], [address] CO2 [Moles/Vol] 26.5 mmol/L Normal 21.0-32.0 [facility] Comment on above: Performed By: #### L 501.5200, L500.2500, L100.0100, L501.9985 ####[facility] [address] [place], [address] Creatinine [Mass/Vol] 0.64 mg/dL Low 0.70-1.20 [facility] Comment on above: Performed By: #### L 501.5200, L500.2500, L100.0100, L501.9985 ####[facility] [address] [place], [address] ECRCL 92.83 ml/min Normal 50-250 [facility] Comment on above: Performed By: #### L 501.5200, L500.2500, L100.0100, L501.9985 ####[facility] [address] [place], [address] GAP 12 Normal 5-15 [facility] Comment on above: Performed By: #### L 501.5200, L500.2500, L100.0100, L501.9985 ####[facility] [address] [place], [address] GFR/1.73 sq M.predicted among non-blacks MDRD (S/P/Bld) [Vol rate/Area] 109 mL/min/{1.73_m2} Normal >60 [facility] Comment on above: Result Comment: mL/m in/1.73m2 CKD-EPI Creatinine Equation (2020) Performed By: #### L 501.5200, L500.2500, L100.0100, L501.9985 ####[facility] [address] [place], [address] Glucose [Mass/Vol] 164 mg/dL High 70-99 [facility] Comment on above: Performed By: #### L 501.5200, L500.2500, L100.0100, L501.9985 ####[facility] [address] [place], [address] Potassium [Moles/Vol] 4.0 mmol/L Normal 3.3-5.1 [facility] Comment on above: Performed By: #### L 501.5200, L500.2500, L100.0100, L501.9985 ####[facility] [address] [place], [address] Sodium [Moles/Vol] 140 mmol/L Normal 133-145 [facility] Comment on above: Performed By: #### L 501.5200, L500.2500, L100.0100, L501.9985 ####[facility] [address] [place], [address] Urea nitrogen [Mass/Vol] 8 mg/dL Normal 4-19 [facility] Comment on above: Performed By: #### L 501.5200, L500.2500, L100.0100, L501.9985 ####[facility] [address] [place], [address] BUN/CRE 13.8 RATIO Normal 10-20 [facility] Comment on above: Performed By: #### L 500.2500 ####[facility] [address] [place], [address] Calcium [Mass/Vol] 7.2 mg/dL Low 7.6-11.0 [facility] Comment on above: Performed By: #### L 500.2500 ####[facility] [address] [place], [address] Chloride [Moles/Vol] 100 mmol/L Normal 98-108 [facility] Comment on above: Performed By: #### L 500.2500 ####[facility] [address] [place], [address] CO2 [Moles/Vol] 27.4 mmol/L Normal 21.0-32.0 [facility] Comment on above: Performed By: #### L 500.2500 ####[facility] [address] [place], [address] Creatinine [Mass/Vol] 0.90 mg/dL Normal 0.70-1.20 [facility] Comment on above: Performed By: #### L 500.2500 ####[facility] [address] [place], [address] ECRCL 62.03 ml/min Normal 50-250 [facility] Comment on above: Performed By: #### L 500.2500 ####[facility] [address] [place], [address] GAP 12 Normal 5-15 [facility] Comment on above: Performed By: #### L 500.2500 ####[facility] [address] [place], [address] GFR/1.73 sq M.predicted among non-blacks MDRD (S/P/Bld) [Vol rate/Area] 79 mL/min/{1.73_m2} Normal >60 [facility] Comment on above: Result Comment: mL/m in/1.73m2 CKD-EPI Creatinine Equation (2020) Performed By: #### L 500.2500 ####[facility] [address] [place], [address] Glucose [Mass/Vol] 162 mg/dL High 70-99 [facility] Comment on above: Performed By: #### L 500.2500 ####[facility] [address] [place], [address] Potassium [Moles/Vol] 3.9 mmol/L Normal 3.3-5.1 [facility] Comment on above: Performed By: #### L 500.2500 ####[facility] [address] [place], [address] Sodium [Moles/Vol] 139 mmol/L Normal 133-145 [facility] Comment on above: Performed By: #### L 500.2500 ####[facility] [address] [place], [address] Urea nitrogen [Mass/Vol] 12 mg/dL Normal 4-19 [facility] Comment on above: Performed By: #### L 500.2500 ####[facility] [address] [place], [address] Basophil percentageOrdered B y: Zev Tucker on 08-13-2025 Basophils/100 WBC (Bld) 0.2 % 0-1 [facility] Bedside Glucoseon 08-13-2025 FINGERSTICK GLU 130 mg/dL High 74-106 [facility] Comment on above: Result Comment: CHAUNCEY GEMENT OF PATIENT CARE PER NURSING PROTOCOL Performed By: #### L 501.080 ####[facility] [address] [place], [address] FINGERSTICK GLU 110 mg/dL High 74-106 [facility] Comment on above: Result Comment: CHAUNCEY GEMENT OF PATIENT CARE PER NURSING PROTOCOL Performed By: #### L 501.080 ####[facility] [address] [place], [address] FINGERSTICK GLU 130 mg/dL High 74-106 [facility] Comment on above: Result Comment: CHAUNCEY GEMENT OF PATIENT CARE PER NURSING PROTOCOL Performed By: #### L 501.080 ####[facility] [address] [place], [address] FINGERSTICK GLU 82 mg/dL Normal 74-106 [facility] Comment on above: Result Comment: CHAUNCEY GEMENT OF PATIENT CARE PER NURSING PROTOCOL Performed By: #### L 501.080 ####[facility] [address] [place], [address] FINGERSTICK GLU 78 mg/dL Normal 74-106 [facility] Comment on above: Result Comment: CHAUNCEY GEMENT OF PATIENT CARE PER NURSING PROTOCOL Performed By: #### L 501.080 ####[facility] [address] [place], [address] FINGERSTICK GLU 94 mg/dL Normal 74-106 [facility] Comment on above: Result Comment: CHAUNCEY GEMENT OF PATIENT CARE PER NURSING PROTOCOL Performed By: #### L 501.080 ####[facility] [address] [place], [address] FINGERSTICK GLU 118 mg/dL High 74-106 [facility] Comment on above: Result Comment: CHAUNCEY GEMENT OF PATIENT CARE PER NURSING PROTOCOL Performed By: #### L 501.080 ####[facility] [address] [place], [address] FINGERSTICK GLU 165 mg/dL High 74-106 [facility] Comment on above: Result Comment: CHAUNCEY GEMENT OF PATIENT CARE PER NURSING PROTOCOL Performed By: #### L 501.080 ####[facility] [address] [place], [address] FINGERSTICK GLU 171 mg/dL High 74-106 [facility] Comment on above: Result Comment: CHAUNCEY GEMENT OF PATIENT CARE PER NURSING PROTOCOL Performed By: #### L 501.080 ####[facility] [address] [place], [address] FINGERSTICK GLU 161 mg/dL High 74-106 [facility] Comment on above: Result Comment: CHAUNCEY GEMENT OF PATIENT CARE PER NURSING PROTOCOL Performed By: #### L 501.080 ####[facility] [address] [place], [address] FINGERSTICK GLU 147 mg/dL High 74-106 [facility] Comment on above: Result Comment: CHAUNCEY GEMENT OF PATIENT CARE PER NURSING PROTOCOL Performed By: #### L 501.080 ####[facility] [address] [place], [address] FINGERSTICK GLU 177 mg/dL High 74-106 [facility] Comment on above: Result Comment: CHAUNCEY GEMENT OF PATIENT CARE PER NURSING PROTOCOL Performed By: #### L 501.080 ####[facility] [address] [place], [address] FINGERSTICK GLU 156 mg/dL High 74-106 [facility] Comment on above: Result Comment: CHAUNCEY GEMENT OF PATIENT CARE PER NURSING PROTOCOL Performed By: #### L 501.080 ####[facility] [address] [place], [address] FINGERSTICK GLU 156 mg/dL High 74-106 [facility] Comment on above: Result Comment: CHAUNCEY GEMENT OF PATIENT CARE PER NURSING PROTOCOL Performed By: #### L 501.080 ####[facility] [address] [place], [address] FINGERSTICK GLU 175 mg/dL High 74-106 [facility] Comment on above: Result Comment: CHAUNCEY GEMENT OF PATIENT CARE PER NURSING PROTOCOL Performed By: #### L 501.080 ####[facility] [address] [place], [address] FINGERSTICK GLU 185 mg/dL High 74-106 [facility] Comment on above: Result Comment: CHAUNCEY GEMENT OF PATIENT CARE PER NURSING PROTOCOL Performed By: #### L 501.080 ####[facility] [address] [place], [address] Beta-Hydroxbytyrateon 2024 BETA-HYDROXYBUT 0.2 mmol/L Normal 0.0-0.3 [facility] Comment on above: Performed By: #### L 501.6901 ####[facility] [address] [place], [address] BETA-HYDROXYBUT 0.5 mmol/L High 0.0-0.3 [facility] Comment on above: Performed By: #### L 501.2276, L501.6901 ####[facility] [address] [place], [address] Beta-hydroxybutyrateOrdered By: Canelo Lorenzo on 08-13-2025 Beta hydroxybutyrate [Mass/Vol] 0.2 mmol/L 0.0-0.3 [facility] CBC W/Diff, Automatedon 07-30 Absolute Lymph 0.83 X10 3/uL Normal 0.83-4.51 [facility] Comment on above: Performed By: #### L 501.5200, L500.2500, L100.0100, L501.9985 ####[facility] [address] [place], [address] Absolute Neut 5.1 X10 3/uL Normal 2.0-7.7 [facility] Comment on above: Performed By: #### L 501.5200, L500.2500, L100.0100, L501.9985 ####[facility] [address] [place], [address] Basophils/100 WBC (Bld) 0.2 % Normal 0-1 [facility] Comment on above: Performed By: #### L 501.5200, L500.2500, L100.0100, L501.9985 ####[facility] [address] [place], [address] Eosinophils/100 WBC (Bld) 0.2 % Normal 0-5 [facility] Comment on above: Performed By: #### L 501.5200, L500.2500, L100.0100, L501.9985 ####[facility] [address] [place], [address] Erythrocyte distribution width (RBC) [Ratio] 13.5 % Normal 11.6-14.6 [facility] Comment on above: Performed By: #### L 501.5200, L500.2500, L100.0100, L501.9985 ####[facility] [address] [place], [address] Hematocrit (Bld) [Volume fraction] 30.8 % Low 37-47 [facility] Comment on above: Performed By: #### L 501.5200, L500.2500, L100.0100, L501.9985 ####[facility] [address] [place], [address] Hemoglobin (Bld) [Mass/Vol] 10.6 g/dL Low 12.0-15.0 [facility] Comment on above: Performed By: #### L 501.5200, L500.2500, L100.0100, L501.9985 ####[facility] [address] [place], [address] IG% 0.500 Normal 0.0-0.9 [facility] Comment on above: Result Comment: IG% - Immature Granulocytes (promyelocytes, myelocytes andmetamyelocytes) > 1% indicates that a LEFT SHIFT is Present. Performed By: #### L 501.5200, L500.2500, L100.0100, L501.9985 ####[facility] [address] [place], [address] Lymphocytes/100 WBC (Bld) 13.0 % Low 19-41 [facility] Comment on above: Performed By: #### L 501.5200, L500.2500, L100.0100, L501.9985 ####[facility] [address] [place], [address] MCH (RBC) [Entitic mass] 34.6 pg High 27.0-32.0 [facility] Comment on above: Performed By: #### L 501.5200, L500.2500, L100.0100, L501.9985 ####[facility] [address] [place], [address] MCHC (RBC) [Mass/Vol] 34.4 g/dL Normal 32-36 [facility] Comment on above: Performed By: #### L 501.5200, L500.2500, L100.0100, L501.9985 ####[facility] [address] [place], [address] MCV (RBC) [Entitic vol] 100.7 fL High 81-99 [facility] Comment on above: Performed By: #### L 501.5200, L500.2500, L100.0100, L501.9985 ####[facility] [address] [place], [address] Monocytes/100 WBC (Bld) 6.0 % Normal 0-10 [facility] Comment on above: Performed By: #### L 501.5200, L500.2500, L100.0100, L501.9985 ####[facility] [address] [place], [address] Neutrophils/100 WBC (Bld) 80.1 % High 47-70 [facility] Comment on above: Performed By: #### L 501.5200, L500.2500, L100.0100, L501.9985 ####[facility] [address] [place], [address] Nucleated RBC (Bld) [#/Vol] 0 10*3/uL Normal 0-5 [facility] Comment on above: Performed By: #### L 501.5200, L500.2500, L100.0100, L501.9985 ####[facility] [address] [place], [address] Platelet mean volume (Bld) [Entitic vol] 10.2 fL Normal 6.2-12.0 [facility] Comment on above: Performed By: #### L 501.5200, L500.2500, L100.0100, L501.9985 ####[facility] [address] [place], [address] Platelets (Bld) [#/Vol] 112 10*3/uL Low 150-450 [facility] Comment on above: Performed By: #### L 501.5200, L500.2500, L100.0100, L501.9985 ####[facility] [address] [place], [address] RBC (Bld) [#/Vol] 3.06 10*6/uL Low 4.2-5.4 [facility] Comment on above: Performed By: #### L 501.5200, L500.2500, L100.0100, L501.9985 ####[facility] [address] [place], [address] RDW SD 49.9 fl High 35.1-43.9 [facility] Comment on above: Performed By: #### L 501.5200, L500.2500, L100.0100, L501.9985 ####[facility] [address] [place], [address] WBC (Bld) [#/Vol] 6.4 10*3/uL Normal 4.4-11.0 [facility] Comment on above: Performed By: #### L 501.5200, L500.2500, L100.0100, L501.9985 ####[facility] [address] [place], [address] Eosinophil percentageOrdered By: Zev Tucker on 08-13-2025 Eosinophils/100 WBC (Bld) 0.2 % 0-5 [facility] Erythrocyte distribution wid th ratioOrdered By: Zev Tucker on 08-13-2025 Erythrocyte distribution width (RBC) [Ratio] 13.5 % 11.6-14.6 [facility] Erythrocyte distribution wid th standard deviationOrdered By: Zev Tucker on 08-13-2025 Erythrocyte distribution width (RBC) [Ratio] 49.9 fl High 35.1-43.9 [facility] Hematocrit Auto (Bld) [Volum e fraction]Ordered By: Zev Tucker on 08-13-2025 Hematocrit (Bld) [Volume fraction] 30.8 % Low 37-47 [facility] Hemoglobin A1con 08-13-2025 HbA1c (Bld) [Mass fraction] 5.2 % Normal <=5.6 [facility] Comment on above: Result Comment: Norm al < 5.7 % Prediabetic 5.7 - 6.4 % Diabetic >or= 6.5 % Please note range changes. Performed By: #### L 501.5200, L500.2500, L100.0100, L501.9985 ####[facility] [address] [place], [address] Hemoglobin A1c percentageOrd ered By: Zev Tucker on 08-13-2025 HbA1c (Bld) [Mass fraction] 5.2 % <5.7 [facility] Hemoglobin measurementOrdere d By: Zev Tucker on 08-13-2025 Hemoglobin (Bld) [Mass/Vol] 10.6 g/dL Low 12.0-15.0 [facility] Immature granulocytes/100 WB C Auto (Bld)Ordered By: Zev Tucker on 08-13-2025 Immature granulocytes/100 WBC (Bld) 0.500 % 0.0-0.9 [facility] Liver Profileon 08-13-2025 Albumin [Mass/Vol] 3.2 g/dL Low 3.5-5.0 [facility] Comment on above: Order Comment: MG1 6 M Performed By: #### L 500.3400 ####[facility] [address] [place], [address] ALK PHOS 102 U/L Normal 35-104 [facility] Comment on above: Order Comment: MG1 6 M Performed By: #### L 500.3400 ####[facility] [address] [place], [address] ALT [Catalytic activity/Vol] 49 U/L High <=34 [facility] Comment on above: Order Comment: MG1 6 M Performed By: #### L 500.3400 ####[facility] [address] [place], [address] AST [Catalytic activity/Vol] 158 U/L High <=31 [facility] Comment on above: Order Comment: MG1 6 M Performed By: #### L 500.3400 ####[facility] [address] [place], [address] Bilirubin [Mass/Vol] 0.72 mg/dL Normal 0.00-1.30 [facility] Comment on above: Order Comment: MG1 6 M Performed By: #### L 500.3400 ####[facility] [address] [place], [address] Bilirubin.direct [Mass/Vol] 0.43 mg/dL High 0.00-0.30 [facility] Comment on above: Order Comment: MG1 6 M Performed By: #### L 500.3400 ####[facility] [address] [place], [address] Globulin (S) [Mass/Vol] 2.4 g/dL Normal 2.2-4.2 [facility] Comment on above: Order Comment: MG1 6 M Performed By: #### L 500.3400 ####[facility] [address] [place], [address] T PROT 5.6 g/dL Low 5.9-8.4 [facility] Comment on above: Order Comment: MG1 6 M Performed By: #### L 500.3400 ####[facility] [address] [place], [address] MCV (mean corpuscular volume ) determinationOrdered By: Zev Tucker on 08-13-2025 MCV (RBC) [Entitic vol] 100.7 fL High 81-99 [facility] Magnesiumon 08-13-2025 Magnesium [Mass/Vol] 1.0 mg/dL Low 1.5-2.2 [facility] Comment on above: Result Comment: Crit ical Result(s) Called at: 0436 08/13/2025 by:ANTONI??Results read back by same. Performed By: #### L 501.5200 ####[facility] [address] [place], [place], [address] Magnesium [Mass/Vol] 0.9 mg/dL Invalid Interpretation Code 1.5-2.2 [facility] Comment on above: Result Comment: Crit ical Result(s) Called at 0554: by: OTTO GROVER??Results read back by same. Performed By: #### L 501.5200, L500.2500, L100.0100, L501.9985 ####[facility] [address] [place], [place], [address] Mean corpuscular hemoglobin (MCH) determinationOrdered By: Zev Tucker on 08-13-2025 MCH (RBC) [Entitic mass] 34.6 pg High 27.0-32.0 [facility] Monocyte percentageOrdered B y: Zev Tucker on 08-13-2025 Monocytes/100 WBC (Bld) 6.0 % 0-10 [facility] Neutrophil percentageOrdered By: Zev Tucker on 08-13-2025 Neutrophils/100 WBC (Bld) 80.1 % High 47-70 [facility] Phosphoruson 08-13-2025 Phosphate [Mass/Vol] 3.8 mg/dL Normal 2.7-4.5 [facility] Comment on above: Order Comment: Comme nts: add on to AM labs Performed By: #### L 501.2300 ####[facility] [address] [place], [place], [address] Platelet countOrdered By: Maria Antonia Tucker on 08-13-2025 Platelets (Bld) [#/Vol] 112 10*3/uL Low 150-450 [facility] RBC Auto (Bld) [#/Vol]Ordere d By: Zev Tucker on 08-13-2025 RBC (Bld) [#/Vol] 3.06 10*6/uL Low 4.2-5.4 [facility] White blood cell (WBC) count Ordered By: Zev Tucker on 08-13-2025 WBC (Bld) [#/Vol] 6.4 10*3/uL 4.4-11.0 [facility] Abdomen/Pelvis W IV Cont ONL Yon 08-12-2025 Abdomen/Pelvis W IV Cont ONLY Normal [facility] Absolute lymphocyte countOrd ered By: Wellington Rader on 08-12-2025 Lymphocytes Auto (Unsp spec) [#/Vol] 1.18 10*3/uL 0.83-4.51 [facility] Anion gap in Serum or Plasma Ordered By: Wellington Rader on 08-12-2025 Anion gap [Moles/Vol] 48 mmol/L High 04-12 [facility] BUN/creatinine ratioOrdered By: Wellington Rader on 08-12-2025 Urea nitrogen/Creatinine [Mass ratio] 10.8 mg/mg 09-17 [facility] Basic Metabolic Profile (BMP )on 08-12-2025 BUN/CRE 15.8 RATIO Normal 09-17 [facility] Comment on above: Performed By: #### L 500.2500, L501.2300, M200.1000 ####[facility] [address] [place], [address] Calcium [Mass/Vol] 7.3 mg/dL Low 7.6-11.0 [facility] Comment on above: Performed By: #### L 500.2500, L501.2300, M200.1000 ####[facility] [address] [place], [address] Chloride [Moles/Vol] 98 mmol/L Normal 98-108 [facility] Comment on above: Performed By: #### L 500.2500, L501.2300, M200.1000 ####[facility] [address] [place], [address] CO2 [Moles/Vol] 26.8 mmol/L Normal 21.0-32.0 [facility] Comment on above: Performed By: #### L 500.2500, L501.2300, M200.1000 ####[facility] [address] [place], [address] Creatinine [Mass/Vol] 0.97 mg/dL Normal 0.70-1.20 [facility] Comment on above: Performed By: #### L 500.2500, L501.2300, M200.1000 ####[facility] [address] [place], [address] ECRCL 57.55 ml/min Normal 50-250 [facility] Comment on above: Performed By: #### L 500.2500, L501.2300, M200.1000 ####[facility] [address] [place], [address] GAP 15 Normal 5-15 [facility] Comment on above: Performed By: #### L 500.2500, L501.2300, M200.1000 ####[facility] [address] [place], [address] GFR/1.73 sq M.predicted among non-blacks MDRD (S/P/Bld) [Vol rate/Area] 72 mL/min/{1.73_m2} Normal >60 [facility] Comment on above: Result Comment: mL/m in/1.73m2 CKD-EPI Creatinine Equation (2020) Performed By: #### L 500.2500, L501.2300, M200.1000 ####[facility] [address] [place], [address] Glucose [Mass/Vol] 179 mg/dL High 70-99 [facility] Comment on above: Performed By: #### L 500.2500, L501.2300, M200.1000 ####[facility] [address] [place], [address] Potassium [Moles/Vol] 3.4 mmol/L Normal 3.3-5.1 [facility] Comment on above: Performed By: #### L 500.2500, L501.2300, M200.1000 ####[facility] [address] [place], [address] Sodium [Moles/Vol] 140 mmol/L Normal 133-145 [facility] Comment on above: Performed By: #### L 500.2500, L501.2300, M200.1000 ####[facility] [address] [place], [address] Urea nitrogen [Mass/Vol] 15 mg/dL Normal 4-19 [facility] Comment on above: Performed By: #### L 500.2500, L501.2300, M200.1000 ####[facility] [address] [place], [address] BUN Normal - [facility] Comment on above: Result Comment: DUP ORDER Performed By: #### L 500.2500 ####[facility] [address] [place], [address] BUN/CRE Normal 10-20 [facility] Comment on above: Result Comment: DUP ORDER Performed By: #### L 500.2500 ####[facility] [address] [place], [address] Calcium Normal 7.6-11.0 [facility] Comment on above: Result Comment: DUP ORDER Performed By: #### L 500.2500 ####[facility] [address] [place], [address] CL Normal 98-108 [facility] Comment on above: Result Comment: DUP ORDER Performed By: #### L 500.2500 ####[facility] [address] [place], [address] CO2 Normal 21.0-32.0 [facility] Comment on above: Result Comment: DUP ORDER Performed By: #### L 500.2500 ####[facility] [address] [place], [address] CREAT,SERUM Normal 0.70-1.20 [facility] Comment on above: Result Comment: DUP ORDER Performed By: #### L 500.2500 ####[facility] [address] [place], [address] eGFR Normal >60 [facility] Comment on above: Result Comment: DUP ORDER Performed By: #### L 500.2500 ####[facility] [address] [place], [address] GAP Normal 5-15 [facility] Comment on above: Result Comment: DUP ORDER Performed By: #### L 500.2500 ####[facility] [address] [place], [address] GLU Normal 70-99 [facility] Comment on above: Result Comment: DUP ORDER Performed By: #### L 500.2500 ####[facility] [address] [place], [address] Potassium Normal 3.3-5.1 [facility] Comment on above: Result Comment: DUP ORDER Performed By: #### L 500.2500 ####[facility] [address] [place], [address] Basic Metabolic Profile (BMP) Normal 133-145 [facility] Comment on above: Result Comment: DUP ORDER Performed By: #### L 500.2500 ####[facility] [address] [place], [address] Bedside Glucoseon 08-12-2025 FINGERSTICK GLU 186 mg/dL High 74-106 [facility] Comment on above: Result Comment: CHAUNCEY GEMENT OF PATIENT CARE PER NURSING PROTOCOL Performed By: #### L 501.080 ####[facility] [address] [place], [address] FINGERSTICK GLU 171 mg/dL High 74-106 [facility] Comment on above: Result Comment: CHAUNCEY GEMENT OF PATIENT CARE PER NURSING PROTOCOL Performed By: #### L 501.080 ####[facility] [address] [place], [address] FINGERSTICK GLU 173 mg/dL High 74-106 [facility] Comment on above: Result Comment: CHAUNCEY GEMENT OF PATIENT CARE PER NURSING PROTOCOL Performed By: #### L 501.080 ####[facility] [address] [place], [address] FINGERSTICK GLU 211 mg/dL High 74-106 [facility] Comment on above: Result Comment: CHAUNCEY GEMENT OF PATIENT CARE PER NURSING PROTOCOL Performed By: #### L 501.080 ####[facility] [address] [place], [address] FINGERSTICK GLU 198 mg/dL High 74-106 [facility] Comment on above: Result Comment: CHAUNCEY GEMENT OF PATIENT CARE PER NURSING PROTOCOL Performed By: #### L 501.080 ####[facility] [address] [place], [address] FINGERSTICK GLU 234 mg/dL High 74-106 [facility] Comment on above: Result Comment: CHAUNCEY GEMENT OF PATIENT CARE PER NURSING PROTOCOL Performed By: #### L 501.080 ####[facility] [address] [place], [address] FINGERSTICK GLU 174 mg/dL High 74-106 [facility] Comment on above: Result Comment: CHAUNCEY GEMENT OF PATIENT CARE PER NURSING PROTOCOL Performed By: #### L 501.080 ####[facility] [address] [place], [address] FINGERSTICK GLU 158 mg/dL High 74-106 [facility] Comment on above: Result Comment: CHAUNCEY GEMENT OF PATIENT CARE PER NURSING PROTOCOL Performed By: #### L 501.080 ####[facility] [address] [place], [address] FINGERSTICK GLU 208 mg/dL High 74-106 [facility] Comment on above: Result Comment: CHAUNCEY GEMENT OF PATIENT CARE PER NURSING PROTOCOL Performed By: #### L 501.080 ####[facility] [address] [place], [address] FINGERSTICK GLU 232 mg/dL High 74-106 [facility] Comment on above: Result Comment: CHAUNCEY GEMENT OF PATIENT CARE PER NURSING PROTOCOL Performed By: #### L 501.080 ####[facility] [address] [place], [address] FINGERSTICK GLU 270 mg/dL High 74-106 [facility] Comment on above: Result Comment: CHAUNCEY GEMENT OF PATIENT CARE PER NURSING PROTOCOL Performed By: #### L 501.080 ####[facility] [address] [place], [address] Beta-Hydroxbytyrateon 2024 BETA-HYDROXYBUT 14.0 mmol/L High 0.0-0.3 [facility] Comment on above: Performed By: #### L 501.6901, L503.6005 ####[facility] [address] [place], [address] Beta-hydroxybutyrateOrdered By: Wellington Rader on 08-12-2025 Beta hydroxybutyrate [Mass/Vol] 14.0 mmol/L High 0.0-0.3 [facility] Bilirubin Test strip Ql (U)O rdered By: Zev Tucker on 08-12-2025 Bilirubin Ql (U) 1 mg/dL High Negative [facility] Bilirubin, totalOrdered By: Wellington Rader on 08-12-2025 Bilirubin [Mass/Vol] 1.22 mg/dL 0.00-1.30 [facility] Blood Gases by CPSon 025 Base excess Calc (Bld) [Moles/Vol] 0 mmol/L Normal -2 to +2 [facility] Comment on above: Performed By: #### L 9000.0800 ####[facility] [address] [place], [address] Blood Gas Type ART Normal [facility] Comment on above: Performed By: #### L 9000.0800 ####[facility] [address] [place], [address] CO2 [Moles/Vol] 23 mmol/L Normal [facility] Comment on above: Performed By: #### L 9000.0800 ####[facility] [address] [place], [address] HCO3 (Bld) [Moles/Vol] 22.2 mmol/L Normal 22-26 [facility] Comment on above: Performed By: #### L 9000.0800 ####[facility] [address] [place], [address] Mode Not entered Normal [facility] Comment on above: Performed By: #### L 9000.0800 ####[facility] [address] [place], [address] O2 Delivery Dev Not entered Normal [facility] Comment on above: Performed By: #### L 9000.0800 ####[facility] [address] [place], [address] pCO2 24.6 mmHg Low 35-45 [facility] Comment on above: Performed By: #### L 9000.0800 ####[facility] [address] [place], [address] pH (Bld) 7.56 [pH] High 7.35-7.45 [facility] Comment on above: Performed By: #### L 9000.0800 ####[facility] [address] [place], [address] PO2 63 mmHG Low 75-100 [facility] Comment on above: Performed By: #### L 9000.0800 ####[facility] [address] [place], [address] SITE Not entered Normal [facility] Comment on above: Performed By: #### L 9000.0800 ####[facility] [address] [place], [address] SO2 95 Normal 95-99 [facility] Comment on above: Performed By: #### L 9000.0800 ####[facility] [address] [place], [address] Blood base excess determinat ionOrdered By: Wellington Rader on 08-12-2025 Base excess Calc (BldV) [Moles/Vol] 0 mmol/L -2-2 [facility] Blood bicarbonate measuremen tOrdered By: Wellington Rader on 08-12-2025 HCO3 (Bld) [Moles/Vol] 22.2 mmol/L 22-26 [facility] Blood cultureOrdered By: Candice Tucker on 08-12-2025 Bacteria identified Cx Nom (Bld) Pasteurella multocida Abnormal [facility] Blood lymphocytes/100 leukoc ytesOrdered By: Wellington Rader on 08-12-2025 Lymphocytes/100 WBC (Bld) 10 % Low 19-41 [facility] Blood monocytes/100 leukocyt esOrdered By: Wellington Rader on 08-12-2025 Monocytes/100 WBC (Bld) 3 % 0-10 [facility] Blood segmented neutrophils/ 100 leukocytesOrdered By: Wellington Rader on 08-12-2025 Segmented neutrophils/100 WBC (Bld) 87 % High 47-70 [facility] CBC W/Diff, Automatedon 07-30 Absolute Lymph 1.18 X10 3/uL Normal 0.83-4.51 [facility] Comment on above: Performed By: #### L 100.0100, L501.2450, L500.4050 ####[facility] [address] [place], [address] Absolute Neut 10.3 X10 3/uL High 2.0-7.7 [facility] Comment on above: Performed By: #### L 100.0100, L501.2450, L500.4050 ####[facility] [address] [place], [address] CO2 (BldV) [Moles/Vol]Ordere d By: Wellington Rader on 08-12-2025 CO2 [Moles/Vol] 26 mmol/L 23-33 [facility] Carbon dioxide, total [Moles /volume] in Central venous bloodOrdered By: Wellington Rader on 08-12-2025 CO2 [Moles/Vol] 17.4 mmol/L Low 21.0-32.0 [facility] Chloride assayOrdered By: Penny Rader on 08-12-2025 Chloride [Moles/Vol] 73 mmol/L Low 98-108 [facility] Comprehensive Metabolic Prof ilon 08-12-2025 Albumin [Mass/Vol] 4.6 g/dL Normal 3.5-5.0 [facility] Comment on above: Performed By: #### L 100.0100, L501.2450, L500.4050 ####[facility] [address] [place], [address] Albumin/Globulin [Mass ratio] 1.3 {ratio} Normal 0.9-2.4 [facility] Comment on above: Performed By: #### L 100.0100, L501.2450, L500.4050 ####[facility] [address] [place], [address] ALK PHOS 135 U/L High 35-104 [facility] Comment on above: Performed By: #### L 100.0100, L501.2450, L500.4050 ####[facility] [address] [place], [address] ALT [Catalytic activity/Vol] 108 U/L High <=34 [facility] Comment on above: Performed By: #### L 100.0100, L501.2450, L500.4050 ####[facility] [address] [place], [address] AST [Catalytic activity/Vol] 408 U/L High <=31 [facility] Comment on above: Performed By: #### L 100.0100, L501.2450, L500.4050 ####[facility] [address] [place], [address] Bilirubin [Mass/Vol] 1.22 mg/dL Normal 0.00-1.30 [facility] Comment on above: Performed By: #### L 100.0100, L501.2450, L500.4050 ####[facility] [address] [place], [address] BUN/CRE 10.8 RATIO Normal 10-20 [facility] Comment on above: Performed By: #### L 100.0100, L501.2450, L500.4050 ####[facility] [address] [place], [address] Calcium [Mass/Vol] 9.2 mg/dL Normal 7.6-11.0 [facility] Comment on above: Performed By: #### L 100.0100, L501.2450, L500.4050 ####[facility] [address] [place], [address] Chloride [Moles/Vol] 73 mmol/L Invalid Interpretation Code 98-108 [facility] Comment on above: Result Comment: Crit ical Result(s) Called at: by:??Results read back bysame.Critical Result(s) Called to: Obie LEE (ER) by:Rolo??Results read back by same. Performed By: #### L 100.0100, L501.2450, L500.4050 ####[facility] [address] [place], [address] CO2 [Moles/Vol] 17.4 mmol/L Low 21.0-32.0 [facility] Comment on above: Performed By: #### L 100.0100, L501.2450, L500.4050 ####[facility] [address] [place], [address] Creatinine [Mass/Vol] 1.82 mg/dL High 0.70-1.20 [facility] Comment on above: Performed By: #### L 100.0100, L501.2450, L500.4050 ####[facility] [address] [place], [address] GAP 48 High 5-15 [facility] Comment on above: Performed By: #### L 100.0100, L501.2450, L500.4050 ####[facility] [address] [place], [address] GFR/1.73 sq M.predicted among non-blacks MDRD (S/P/Bld) [Vol rate/Area] 34 mL/min/{1.73_m2} Low >60 [facility] Comment on above: Result Comment: mL/m in/1.73m2 CKD-EPI Creatinine Equation (2020) Performed By: #### L 100.0100, L501.2450, L500.4050 ####[facility] [address] [place], [address] Globulin (S) [Mass/Vol] 3.6 g/dL Normal 2.2-4.2 [facility] Comment on above: Performed By: #### L 100.0100, L501.2450, L500.4050 ####[facility] [address] [place], [address] Glucose [Mass/Vol] 300 mg/dL High 70-99 [facility] Comment on above: Performed By: #### L 100.0100, L501.2450, L500.4050 ####[facility] [address] [place], [address] Potassium [Moles/Vol] 3.1 mmol/L Low 3.3-5.1 [facility] Comment on above: Performed By: #### L 100.0100, L501.2450, L500.4050 ####[facility] [address] [place], [address] Sodium [Moles/Vol] 139 mmol/L Normal 133-145 [facility] Comment on above: Performed By: #### L 100.0100, L501.2450, L500.4050 ####[facility] [address] [place], [address] T PROT 8.3 g/dL Normal 5.9-8.4 [facility] Comment on above: Performed By: #### L 100.0100, L501.2450, L500.4050 ####[facility] [address] [place], [address] Urea nitrogen [Mass/Vol] 20 mg/dL High 4-19 [facility] Comment on above: Performed By: #### L 100.0100, L501.2450, L500.4050 ####[facility] [address] [place], [address] Emergency Department Summary on 08-12-2025 Emergency Department Summary Normal [facility] Erythrocyte distribution wid th ratioOrdered By: Wellington Rader on 08-12-2025 Erythrocyte distribution width (RBC) [Ratio] 13.6 % 11.6-14.6 [facility] Erythrocyte distribution wid th standard deviationOrdered By: Wellington Rader on 08-12-2025 Erythrocyte distribution width (RBC) [Ratio] 50.9 fl High 35.1-43.9 [facility] Erythrocyte morphology asses smentOrdered By: Wellington Rader on 08-12-2025 RBC morphology finding Nom (Bld) NORM C+C NORMAL NORM C&C [facility] Glomerular filtration rate ( GFR) estimation/1.73 sq m using serum, plasma, or whole bOrdered By: Wellington Rader on 08-12-2025 GFR/1.73 sq M.predicted among non-blacks MDRD (S/P/Bld) [Vol rate/Area] 34 mL/min/{1.73_m2} Low >60 [facility] H AND P Exam - Hospitaliston 08-12-2025 H&P Exam - Hospitalist Normal [facility] Hematocrit Auto (Bld) [Volum e fraction]Ordered By: Wellington Rader on 08-12-2025 Hematocrit (Bld) [Volume fraction] 41.3 % 37-47 [facility] Hemoglobin measurementOrdere d By: Wellington Prasanth on 08-12-2025 Hemoglobin (Bld) [Mass/Vol] 14.1 g/dL 12.0-15.0 [facility] Influenza virus A and B and SARS-CoV-2 (COVID-19) and Respiratory syncytial virus RNAOrdered By: Wellingtonfortino Rader on 08-12-2025 SARS-CoV-2 (COVID-19) RNA ALLEY+probe Ql (Unsp spec) [facility] Ketones Test strip Ql (U)Ord ered By: Zev Tucker on 08-12-2025 Ketones Ql (U) 150 mg/dl Negative [facility] Lactic Acidon 08-12-2025 Lactate [Moles/Vol] 1.7 mmol/L Normal 0.0-2.0 [facility] Comment on above: Order Comment: Y Performed By: #### L 501.6901, L503.6005 ####[facility] [address] [place], [place], [address] Lipaseon 08-12-2025 Lipase [Catalytic activity/Vol] 1130 U/L High 13-75 [facility] Comment on above: Result Comment: Lucie schultz note:LIPASE revised reference range effective 23.New Lipase methodology. Expected to produce lower valuesthan the previous assay method.NEW Reference Range: 13 - 75 U/L Performed By: #### L 100.0100, L501.2450, L500.4050 ####[facility] [address] [place], [address] M100.019on 08-12-2025 M100.019 Negative Normal [facility] Comment on above: Performed By: #### M 100.019 ####[facility] [address] [place], [address] M100.677on 08-12-2025 M100.677 Negative Normal [facility] Comment on above: Performed By: #### M 100.678, M100.677 ####[facility] [address] [place], [address] M100.678on 08-12-2025 M100.678 Pending SARS-CoV-2 (COVID 19) Negative INFLUENZA A Negative INFLUENZA B Negative RSV PCR Negative Normal [facility] Comment on above: Performed By: #### M 100.678, M100.677 ####[facility] [address] [place], [address] M8200.1000on 08-12-2025 M8200.1000 Normal Reference Ran ge = Negative MRSA DNA Nose Ql ALLEY+probe GeneXpert Instrument, PCR method MRSA PCR MRSA NEGATIVE Normal [facility] Comment on above: Performed By: #### M 8200.1000 ####[facility] [address] [place], [address] MCV (mean corpuscular volume ) determinationOrdered By: Wellington Rader on 08-12-2025 MCV (RBC) [Entitic vol] 102.0 fL High 81-99 [facility] Mean corpuscular hemoglobin (MCH) determinationOrdered By: Wellington Rader on 08-12-2025 MCH (RBC) [Entitic mass] 34.8 pg High 27.0-32.0 [facility] Measurement, pHOrdered By: Pia Rader on 08-12-2025 pH (Unsp spec) 7.56 [pH] High 7.35-7.45 [facility] Mucus LM Ql (Urine sed)Order ed By: Zev Tucker on 08-12-2025 Mucus Ql (Urine sed) 0 SEEN /hpf [facility] Nasal methicillin resistant Staphylococcus aureus (MRSA) DNA detection by PCROrdered By: Zev Tucker on 08-12-2025 MRSA DNA ALLEY+probe Ql (Nose) [facility] Nitrite Test strip Ql (U)Ord ered By: Zev Tucker on 08-12-2025 Nitrite Ql (U) Negative Negative [facility] No Panel InformationOrdered By: Wellington Rader on 08-12-2025 GELACIO [facility] Not entered [facility] Not entered [facility] 408 U/L High <32 [facility] Phosphoruson 08-12-2025 Phosphate [Mass/Vol] 0.8 mg/dL Invalid Interpretation Code 2.7-4.5 [facility] Comment on above: Result Comment: Crit ical Result(s) Called GWYCOFF at: 2111 by:MINH??Results read back by same. Performed By: #### L 500.2500, L501.2300, M200.1000 ####[facility] [address] [place], [place], [address] Platelet countOrdered By: Penny Rader on 08-12-2025 Platelets (Bld) [#/Vol] 181 10*3/uL 150-450 [facility] Platelet estimateOrdered By: Wellington Rader on 08-12-2025 Platelets LM Ql (Bld) ADEQUATE ADEQ [facility] Potassium measurement (mass/ volume)Ordered By: Wellington Rader on 08-12-2025 Potassium (Unsp spec) [Mass/Vol] 3.1 mmol/L Low 3.3-5.1 [facility] ,Serum,hCG Quali.on 08-12-2025 HCG, SERUM QUAL Negative Normal [facility] Comment on above: Performed By: #### L 700.6800 ####[facility] [address] [place], [place], [address] Protein Test strip Ql (U)Ord ered By: Zev Tucker on 08-12-2025 Protein Ql (U) 100 mg/dl High Negative [facility] RBC Auto (Bld) [#/Vol]Ordere d By: Wellington Rader on 08-12-2025 RBC (Bld) [#/Vol] 4.05 10*6/uL Low 4.2-5.4 [facility] Agif-rga-9Gngoweg By: Rajesh Tucker on 08-12-2025 SARS-CoV-2 (COVID-19) RNA ALLEY+probe Ql (Unsp spec) [facility] Serum beta-hCG test, qualita tiveOrdered By: Wellington Rader on 08-12-2025 Beta HCG ( test) Ql Negative [facility] Serum creatinine measurement (mass/volume)Ordered By: Wellington Rader on 08-12-2025 Creatinine [Mass/Vol] 1.82 mg/dL High 0.70-1.20 [facility] Serum globulin measurementOr dered By: Wellington Rader on 08-12-2025 Globulin (S) [Mass/Vol] 3.6 g/dL 2.2-4.2 [facility] Serum glucose measurement (m ass/volume)Ordered By: Wellington Rader on 08-12-2025 Glucose [Mass/Vol] 300 mg/dL High 70-99 [facility] Serum or plasma alanine wilkerson otransferase (ALT) measurementOrdered By: Wellington Rader on 08-12-2025 ALT [Catalytic activity/Vol] 108 U/L High <35 [facility] Serum or plasma albumin alphonso urement (mass/volume)Ordered By: Wellington Rader on 08-12-2025 Albumin [Mass/Vol] 4.6 g/dL 3.5-5.0 [facility] Serum or plasma albumin/glob ulin mass ratioOrdered By: Wellington Rader on 08-12-2025 Albumin/Globulin [Mass ratio] 1.3 {ratio} 0.9-2.4 [facility] Serum or plasma alkaline trinity sphatase measurementOrdered By: Wellington Rader on 08-12-2025 ALP [Catalytic activity/Vol] 135 U/L High 35-104 [facility] Serum or plasma calcium alphonso urement (mass/volume)Ordered By: Wellington Rader on 08-12-2025 Calcium [Mass/Vol] 9.2 mg/dL 7.6-11.0 [facility] Serum or plasma urea nitroge n measurement (mass/volume)Ordered By: Wellington Rader on 08-12-2025 Urea nitrogen [Mass/Vol] 20 mg/dL High 4-19 [facility] Sodium levelOrdered By: Dontae Rader on 08-12-2025 Sodium [Moles/Vol] 139 mmol/L 133-145 [facility] Squamous epithelial cells de tection in urine sediment by light microscopyOrdered By: Zev Tucker on 08-12-2025 Epithelial cells.squamous LM Ql (Urine sed) 0-5 SEEN /hpf 5-10 [facility] Strep pneumoniae Antig(UR,CS F)on 08-12-2025 STPAG Normal [facility] Comment on above: Performed By: #### M 100.2200, M300.4600 ####[facility] [address] [place], [place], [address] Streptococcus pyogenes rRNA detection in throat by DNA probeOrdered By: Wellington Rader on 08-12-2025 S. pyogenes rRNA Probe Ql (Throat) [facility] Total carbon dioxide measure mentOrdered By: Wellington Rader on 08-12-2025 CO2 [Moles/Vol] 23 mmol/L [facility] Total cell countOrdered By: Wellington Rader on 08-12-2025 Cells counted Molgen (Bld/Tiss) [#] 100 MANUAL DIFF [facility] Total proteinOrdered By: Jimbo Rader on 08-12-2025 Protein [Mass/Vol] 8.3 g/dL 5.9-8.4 [facility] Urinalysis, Completeon 08-12 EPI,SQUAMOUS 0-5 SEEN Normal 5-10 [facility] Comment on above: Order Comment: CLEAN CATCH Performed By: #### L 400.0001 ####[facility] [address] [place], [address] RBC 5-10 SEEN Normal 0-5 [facility] Comment on above: Order Comment: CLEAN CATCH Performed By: #### L 400.0001 ####[facility] [address] [place], [address] WBC 0-5 SEEN Normal 0-5 [facility] Comment on above: Order Comment: CLEAN CATCH Performed By: #### L 400.0001 ####[facility] [address] [place], [address] BACTERIA 0 SEEN Normal None Seen [facility] Comment on above: Order Comment: CLEAN CATCH Performed By: #### L 400.0001 ####[facility] [address] [place], [address] Mucus Ql (Urine sed) 0 SEEN Normal [facility] Comment on above: Order Comment: CLEAN CATCH Performed By: #### L 400.0001 ####[facility] [address] [place], [place], [id number] Urine clarityOrdered By: Candice Tucker on 08-12-2025 Clarity (U) Clear Clear [facility] Urine color determinationOrd ered By: Zev Tucker on 08-12-2025 Color (U) Yellow Yellow [facility] Urine cultureOrdered By: Candice Tucker on 08-12-2025 Bacteria identified Cx Nom (U) Mixed Gram Pos & Gram Neg Org Abnormal [facility] Urine glucose detectionOrder ed By: Zev Tucker on 08-12-2025 Glucose Ql (U) 50 mg/dl High Normal [facility] Urine leukocyte esterase det ection by dipstickOrdered By: Zev Tucker on 08-12-2025 Leukocyte esterase Test strip Ql (U) Negative Negative [facility] Urine pHOrdered By: Zev Tucker on 08-12-2025 pH (U) 6.5 [pH] 5.0 - 8.0 [facility] Urine sediment bacteria coun t by microscopy (number/high power field)Ordered By: Zev Tucker on 08-12-2025 Bacteria LM.HPF (Urine sed) [#/Area] 0 /[HPF] None Seen [facility] Urine specific gravity measu rementOrdered By: Zev Tucker on 08-12-2025 Specific gravity (U) [Rel density] 1.010 1.002-1.030 [facility] Urine urobilinogen measureme ntOrdered By: Zev Tucker on 08-12-2025 Urobilinogen Ql (U) 4 mg/dl High Normal [facility] Venous Blood Gason Blood Gas Type GELACIO Normal [facility] Comment on above: Performed By: #### L 9000.0810 ####[facility] [address] [place], [address] CO2 [Moles/Vol] 26 mmol/L Normal 23-33 [facility] Comment on above: Performed By: #### L 9000.0810 ####[facility] [address] [place], [address] HCO3 (Bld) [Moles/Vol] 25 mmol/L Normal 22-26 [facility] Comment on above: Performed By: #### L 9000.0810 ####[facility] [address] [place], [address] O2 Delivery Dev Not entered [facility] Comment on above: Performed By: #### L 9000.0810 ####[facility] [address] [place], [address] SITE Not entered [facility] Comment on above: Performed By: #### L 9000.0810 ####[facility] [address] [place], [address] VBG BE 2 mmol/L Normal -1.0-3.5 [facility] Comment on above: Performed By: #### L 9000.0810 ####[facility] [address] [place], [address] VBG pCO2 32.2 mmHg Low 41-51 [facility] Comment on above: Performed By: #### L 9000.0810 ####[facility] [address] [place], [address] VBG pH 7.49 High 7.32-7.42 [facility] Comment on above: Performed By: #### L 9000.0810 ####[facility] [address] [place], [place], [address] VBG PO2 52 mmHg High 25-40 [facility] Comment on above: Performed By: #### L 9000.0810 ####[facility] [address] [place], [address] VBG SO2 90 High 50-70 [facility] Comment on above: Performed By: #### L 9000.0810 ####[facility] [address] [place], [place], [address] Venous blood base excess alexis surementOrdered By: Wellington Rader on 08-12-2025 Base excess Calc (BldV) [Moles/Vol] 2 mmol/L -1.0-3.5 [facility] Venous blood bicarbonate alexis surementOrdered By: Wellington Rader on 08-12-2025 HCO3 (Bld) [Moles/Vol] 25 mmol/L 22-26 [facility] Venous blood pH measurementO rdered By: Wellington Rader on 08-12-2025 pH (BldV) 7.49 [pH] High 7.32-7.42 [facility] Venous blood partial pressur e of carbon dioxide measurementOrdered By: Wellington Rader on 08-12-2025 CO2 (BldV) [Partial pressure] 32.2 mm[Hg] Low 41-51 [facility] Venous blood partial pressur e of oxygen measurementOrdered By: Wellington Rader on 08-12-2025 Oxygen (BldV) [Partial pressure] 52 mm[Hg] High 25-40 [facility] White blood cell (WBC) count Ordered By: Wellington Rader on 08-12-2025 WBC (Bld) [#/Vol] 11.8 10*3/uL High 4.4-11.0 [facility] White blood cell countOrdere d By: Zev Tucker on 08-12-2025 White blood cell count 0-5 SEEN /hpf 0-5 [facility] CBC W/Diff, Automatedon 08-2 4-2025 Absolute Neut Normal 2.0-7.7 [facility] Comment on above: Result Comment: Canc elled via OM: Order cancelled - Patient discharged Performed By: #### L 100.0100, L500.4050 ####[facility] [address] [place], [address] HCT Normal 37-47 [facility] Comment on above: Result Comment: Canc elled via OM: Order cancelled - Patient discharged Performed By: #### L 100.0100, L500.4050 ####[facility] [address] [place], [address] HGB Normal 12.0-15.0 [facility] Comment on above: Result Comment: Canc elled via OM: Order cancelled - Patient discharged Performed By: #### L 100.0100, L500.4050 ####[facility] [address] [place], [address] MCH Normal 27.0-32.0 [facility] Comment on above: Result Comment: Canc elled via OM: Order cancelled - Patient discharged Performed By: #### L 100.0100, L500.4050 ####[facility] [address] [place], [address] MCHC Normal 32-36 [facility] Comment on above: Result Comment: Canc elled via OM: Order cancelled - Patient discharged Performed By: #### L 100.0100, L500.4050 ####[facility] [address] [place], [address] MCV Normal 81-99 [facility] Comment on above: Result Comment: Canc elled via OM: Order cancelled - Patient discharged Performed By: #### L 100.0100, L500.4050 ####[facility] [address] [place], [address] NEUT% Normal 47-70 [facility] Comment on above: Result Comment: Canc elled via OM: Order cancelled - Patient discharged Performed By: #### L 100.0100, L500.4050 ####[facility] [address] [place], [address] PLT Normal 150-450 [facility] Comment on above: Result Comment: Canc elled via OM: Order cancelled - Patient discharged Performed By: #### L 100.0100, L500.4050 ####[facility] [address] [place], [address] RBC Normal 4.2-5.4 [facility] Comment on above: Result Comment: Canc elled via OM: Order cancelled - Patient discharged Performed By: #### L 100.0100, L500.4050 ####[facility] [address] [place], [address] RDW CV Normal 11.6-14.6 [facility] Comment on above: Result Comment: Canc elled via OM: Order cancelled - Patient discharged Performed By: #### L 100.0100, L500.4050 ####[facility] [address] [place], [address] RDW SD Normal 35.1-43.9 [facility] Comment on above: Result Comment: Canc elled via OM: Order cancelled - Patient discharged Performed By: #### L 100.0100, L500.4050 ####[facility] [address] [place], [address] WBC Normal 4.4-11.0 [facility] Comment on above: Result Comment: Canc elled via OM: Order cancelled - Patient discharged Performed By: #### L 100.0100, L500.4050 ####[facility] [address] [place], [address] Comprehensive Metabolic Prof ilon 07-22-2025 ALB Normal 3.5-5.0 [facility] Comment on above: Result Comment: Canc elled via OM: Order cancelled - Patient discharged Performed By: #### L 100.0100, L500.4050 ####[facility] [address] [place], [address] ALK PHOS Normal 35-104 [facility] Comment on above: Result Comment: Canc elled via OM: Order cancelled - Patient discharged Performed By: #### L 100.0100, L500.4050 ####[facility] [address] [place], [address] ALT Normal <=34 [facility] Comment on above: Result Comment: Canc elled via OM: Order cancelled - Patient discharged Performed By: #### L 100.0100, L500.4050 ####[facility] [address] [place], [address] AST Normal <=31 [facility] Comment on above: Result Comment: Canc elled via OM: Order cancelled - Patient discharged Performed By: #### L 100.0100, L500.4050 ####[facility] [address] [place], [address] BUN Normal 4-19 [facility] Comment on above: Result Comment: Canc elled via OM: Order cancelled - Patient discharged Performed By: #### L 100.0100, L500.4050 ####[facility] [address] [place], [address] BUN/CRE Normal 10-20 [facility] Comment on above: Result Comment: Canc elled via OM: Order cancelled - Patient discharged Performed By: #### L 100.0100, L500.4050 ####[facility] [address] [place], [address] Calcium Normal 7.6-11.0 [facility] Comment on above: Result Comment: Canc elled via OM: Order cancelled - Patient discharged Performed By: #### L 100.0100, L500.4050 ####[facility] [address] [place], [address] CL Normal 98-108 [facility] Comment on above: Result Comment: Canc elled via OM: Order cancelled - Patient discharged Performed By: #### L 100.0100, L500.4050 ####[facility] [address] [place], [address] CO2 Normal 21.0-32.0 [facility] Comment on above: Result Comment: Canc elled via OM: Order cancelled - Patient discharged Performed By: #### L 100.0100, L500.4050 ####[facility] [address] [place], [address] CREAT,SERUM Normal 0.70-1.20 [facility] Comment on above: Result Comment: Canc elled via OM: Order cancelled - Patient discharged Performed By: #### L 100.0100, L500.4050 ####[facility] [address] [place], [address] eGFR Normal >60 [facility] Comment on above: Result Comment: Canc elled via OM: Order cancelled - Patient discharged Performed By: #### L 100.0100, L500.4050 ####[facility] [address] [place], [address] GAP Normal 5-15 [facility] Comment on above: Result Comment: Canc elled via OM: Order cancelled - Patient discharged Performed By: #### L 100.0100, L500.4050 ####[facility] [address] [place], [address] GLU Normal 70-99 [facility] Comment on above: Result Comment: Canc elled via OM: Order cancelled - Patient discharged Performed By: #### L 100.0100, L500.4050 ####[facility] [address] [place], [address] Potassium Normal 3.3-5.1 [facility] Comment on above: Result Comment: Canc elled via OM: Order cancelled - Patient discharged Performed By: #### L 100.0100, L500.4050 ####[facility] [address] [place], [address] T BILI Normal 0.00-1.30 [facility] Comment on above: Result Comment: Canc elled via OM: Order cancelled - Patient discharged Performed By: #### L 100.0100, L500.4050 ####[facility] [address] [place], [address] T PROT Normal 5.9-8.4 [facility] Comment on above: Result Comment: Canc elled via OM: Order cancelled - Patient discharged Performed By: #### L 100.0100, L500.4050 ####[facility] [address] [place], [address] Comprehensive Metabolic Profil Normal 133-145 [facility] Comment on above: Result Comment: Canc elled via OM: Order cancelled - Patient discharged Performed By: #### L 100.0100, L500.4050 ####[facility] [address] [place], [address] CBC W/Diff, Automatedon 08-2 Absolute Neut Normal 2.0-7.7 [facility] Comment on above: Result Comment: Canc elled via OM: Order cancelled - Patient discharged Performed By: #### L 100.0100, L500.4050 ####[facility] [address] [place], [address] HCT Normal 37-47 [facility] Comment on above: Result Comment: Canc elled via OM: Order cancelled - Patient discharged Performed By: #### L 100.0100, L500.4050 ####[facility] [address] [place], [address] HGB Normal 12.0-15.0 [facility] Comment on above: Result Comment: Canc elled via OM: Order cancelled - Patient discharged Performed By: #### L 100.0100, L500.4050 ####[facility] [address] [place], [address] MCH Normal 27.0-32.0 [facility] Comment on above: Result Comment: Canc elled via OM: Order cancelled - Patient discharged Performed By: #### L 100.0100, L500.4050 ####[facility] [address] [place], [address] MCHC Normal 32-36 [facility] Comment on above: Result Comment: Canc elled via OM: Order cancelled - Patient discharged Performed By: #### L 100.0100, L500.4050 ####[facility] [address] [place], [address] MCV Normal 81-99 [facility] Comment on above: Result Comment: Canc elled via OM: Order cancelled - Patient discharged Performed By: #### L 100.0100, L500.4050 ####[facility] [address] [place], [address] NEUT% Normal 47-70 [facility] Comment on above: Result Comment: Canc elled via OM: Order cancelled - Patient discharged Performed By: #### L 100.0100, L500.4050 ####[facility] [address] [place], [address] PLT Normal 150-450 [facility] Comment on above: Result Comment: Canc elled via OM: Order cancelled - Patient discharged Performed By: #### L 100.0100, L500.4050 ####[facility] [address] [place], [address] RBC Normal 4.2-5.4 [facility] Comment on above: Result Comment: Canc elled via OM: Order cancelled - Patient discharged Performed By: #### L 100.0100, L500.4050 ####[facility] [address] [place], [address] RDW CV Normal 11.6-14.6 [facility] Comment on above: Result Comment: Canc elled via OM: Order cancelled - Patient discharged Performed By: #### L 100.0100, L500.4050 ####[facility] [address] [place], [address] RDW SD Normal 35.1-43.9 [facility] Comment on above: Result Comment: Canc elled via OM: Order cancelled - Patient discharged Performed By: #### L 100.0100, L500.4050 ####[facility] [address] [place], [address] WBC Normal 4.4-11.0 [facility] Comment on above: Result Comment: Canc elled via OM: Order cancelled - Patient discharged Performed By: #### L 100.0100, L500.4050 ####[facility] [address] [place], [address] Comprehensive Metabolic Prof ilon 07-21-2025 ALB Normal 3.5-5.0 [facility] Comment on above: Result Comment: Canc elled via OM: Order cancelled - Patient discharged Performed By: #### L 100.0100, L500.4050 ####[facility] [address] [place], [address] ALK PHOS Normal 35-104 [facility] Comment on above: Result Comment: Canc elled via OM: Order cancelled - Patient discharged Performed By: #### L 100.0100, L500.4050 ####[facility] [address] [place], [address] ALT Normal <=34 [facility] Comment on above: Result Comment: Canc elled via OM: Order cancelled - Patient discharged Performed By: #### L 100.0100, L500.4050 ####[facility] [address] [place], [address] AST Normal <=31 [facility] Comment on above: Result Comment: Canc elled via OM: Order cancelled - Patient discharged Performed By: #### L 100.0100, L500.4050 ####[facility] [address] [place], [address] BUN Normal 4-19 [facility] Comment on above: Result Comment: Canc elled via OM: Order cancelled - Patient discharged Performed By: #### L 100.0100, L500.4050 ####[facility] [address] [place], [address] BUN/CRE Normal 10-20 [facility] Comment on above: Result Comment: Canc elled via OM: Order cancelled - Patient discharged Performed By: #### L 100.0100, L500.4050 ####[facility] [address] [place], [address] Calcium Normal 7.6-11.0 [facility] Comment on above: Result Comment: Canc elled via OM: Order cancelled - Patient discharged Performed By: #### L 100.0100, L500.4050 ####[facility] [address] [place], [address] CL Normal 98-108 [facility] Comment on above: Result Comment: Canc elled via OM: Order cancelled - Patient discharged Performed By: #### L 100.0100, L500.4050 ####[facility] [address] [place], [address] CO2 Normal 21.0-32.0 [facility] Comment on above: Result Comment: Canc elled via OM: Order cancelled - Patient discharged Performed By: #### L 100.0100, L500.4050 ####[facility] [address] [place], [address] CREAT,SERUM Normal 0.70-1.20 [facility] Comment on above: Result Comment: Canc elled via OM: Order cancelled - Patient discharged Performed By: #### L 100.0100, L500.4050 ####[facility] [address] [place], [address] eGFR Normal >60 [facility] Comment on above: Result Comment: Canc elled via OM: Order cancelled - Patient discharged Performed By: #### L 100.0100, L500.4050 ####[facility] [address] [place], [address] GAP Normal 5-15 [facility] Comment on above: Result Comment: Canc elled via OM: Order cancelled - Patient discharged Performed By: #### L 100.0100, L500.4050 ####[facility] [address] [place], [address] GLU Normal 70-99 [facility] Comment on above: Result Comment: Canc elled via OM: Order cancelled - Patient discharged Performed By: #### L 100.0100, L500.4050 ####[facility] [address] [place], [address] Potassium Normal 3.3-5.1 [facility] Comment on above: Result Comment: Canc elled via OM: Order cancelled - Patient discharged Performed By: #### L 100.0100, L500.4050 ####[facility] [address] [place], [address] T BILI Normal 0.00-1.30 [facility] Comment on above: Result Comment: Canc elled via OM: Order cancelled - Patient discharged Performed By: #### L 100.0100, L500.4050 ####[facility] [address] [place], [address] T PROT Normal 5.9-8.4 [facility] Comment on above: Result Comment: Canc elled via OM: Order cancelled - Patient discharged Performed By: #### L 100.0100, L500.4050 ####[facility] [address] [place], [address] Comprehensive Metabolic Profil Normal 133-145 [facility] Comment on above: Result Comment: Canc elled via OM: Order cancelled - Patient discharged Performed By: #### L 100.0100, L500.4050 ####[facility] [address] [place], [address] Absolute lymphocyte countOrd ered By: Canelo Myers on 07-20-2025 Lymphocytes Auto (Unsp spec) [#/Vol] 0.83 10*3/uL 0.83-4.51 [facility] Anion gap in Serum or Plasma Ordered By: Canelo Myers on 07-20-2025 Anion gap [Moles/Vol] 10 mmol/L 5-15 [facility] Automated lymphocyte count a s percentage of total leukocytesOrdered By: Canelo Myers on 07-20-2025 Lymphocytes/100 WBC Auto (Unsp spec) 19.5 % 19-41 [facility] BUN/creatinine ratioOrdered By: Canelo Myers on 07-20-2025 Urea nitrogen/Creatinine [Mass ratio] 10.1 mg/mg 10-20 [facility] Basophil percentageOrdered B y: Canelo Myers on 07-20-2025 Basophils/100 WBC (Bld) 0.2 % 0-1 [facility] Bedside Glucoseon 07-20-2025 FINGERSTICK GLU 217 mg/dL High 74-106 [facility] Comment on above: Result Comment: CHAUNCEY WOODENT OF PATIENT CARE PER NURSING PROTOCOL Performed By: #### L 501.080 ####[facility] [address] [place], [address] FINGERSTICK GLU 111 mg/dL High 74-106 [facility] Comment on above: Result Comment: CHAUNCEY RIZO OF PATIENT CARE PER NURSING PROTOCOL Performed By: #### L 501.080 ####[facility] [address] [place], [address] Bilirubin, totalOrdered By: Canelo Myers on 07-20-2025 Bilirubin [Mass/Vol] 0.86 mg/dL 0.00-1.30 [facility] CBC W/Diff, Automatedon 06-30 Absolute Lymph 0.83 X10 3/uL Normal 0.83-4.51 [facility] Comment on above: Performed By: #### L 100.0100, L500.4050 ####[facility] [address] [place], [address] Absolute Neut 2.8 X10 3/uL Normal 2.0-7.7 [facility] Comment on above: Performed By: #### L 100.0100, L500.4050 ####[facility] [address] [place], [address] Basophils/100 WBC (Bld) 0.2 % Normal 0-1 [facility] Comment on above: Performed By: #### L 100.0100, L500.4050 ####[facility] [address] [place], [address] Eosinophils/100 WBC (Bld) 1.6 % Normal 0-5 [facility] Comment on above: Performed By: #### L 100.0100, L500.4050 ####[facility] [address] [place], [address] Erythrocyte distribution width (RBC) [Ratio] 15.2 % High 11.6-14.6 [facility] Comment on above: Performed By: #### L 100.0100, L500.4050 ####[facility] [address] [place], [address] Hematocrit (Bld) [Volume fraction] 29.2 % Low 37-47 [facility] Comment on above: Performed By: #### L 100.0100, L500.4050 ####[facility] [address] [place], [address] Hemoglobin (Bld) [Mass/Vol] 9.6 g/dL Low 12.0-15.0 [facility] Comment on above: Performed By: #### L 100.0100, L500.4050 ####[facility] [address] [place], [address] IG% 0.200 Normal 0.0-0.9 [facility] Comment on above: Result Comment: IG% - Immature Granulocytes (promyelocytes, myelocytes andmetamyelocytes) > 1% indicates that a LEFT SHIFT is Present. Performed By: #### L 100.0100, L500.4050 ####[facility] [address] [place], [address] Lymphocytes/100 WBC (Bld) 19.5 % Normal 19-41 [facility] Comment on above: Performed By: #### L 100.0100, L500.4050 ####[facility] [address] [place], [address] MCH (RBC) [Entitic mass] 33.8 pg High 27.0-32.0 [facility] Comment on above: Performed By: #### L 100.0100, L500.4050 ####[facility] [address] [place], [address] MCHC (RBC) [Mass/Vol] 32.9 g/dL Normal 32-36 [facility] Comment on above: Performed By: #### L 100.0100, L500.4050 ####[facility] [address] [place], [address] MCV (RBC) [Entitic vol] 102.8 fL High 81-99 [facility] Comment on above: Performed By: #### L 100.0100, L500.4050 ####[facility] [address] [place], [address] Monocytes/100 WBC (Bld) 11.8 % High 0-10 [facility] Comment on above: Performed By: #### L 100.0100, L500.4050 ####[facility] [address] [place], [address] Neutrophils/100 WBC (Bld) 66.7 % Normal 47-70 [facility] Comment on above: Performed By: #### L 100.0100, L500.4050 ####[facility] [address] [place], [address] Nucleated RBC (Bld) [#/Vol] 0 10*3/uL Normal 0-5 [facility] Comment on above: Performed By: #### L 100.0100, L500.4050 ####[facility] [address] [place], [address] Platelet mean volume (Bld) [Entitic vol] 10.9 fL Normal 6.2-12.0 [facility] Comment on above: Performed By: #### L 100.0100, L500.4050 ####[facility] [address] [place], [address] Platelets (Bld) [#/Vol] 114 10*3/uL Low 150-450 [facility] Comment on above: Performed By: #### L 100.0100, L500.4050 ####[facility] [address] [place], [address] RBC (Bld) [#/Vol] 2.84 10*6/uL Low 4.2-5.4 [facility] Comment on above: Performed By: #### L 100.0100, L500.4050 ####[facility] [address] [place], [address] RDW SD 57.6 fl High 35.1-43.9 [facility] Comment on above: Performed By: #### L 100.0100, L500.4050 ####[facility] [address] [place], [address] WBC (Bld) [#/Vol] 4.3 10*3/uL Low 4.4-11.0 [facility] Comment on above: Performed By: #### L 100.0100, L500.4050 ####[facility] [address] [place], [address] Carbon dioxide, total [Moles /volume] in Central venous bloodOrdered By: Canelo Myers on 07-20-2025 CO2 [Moles/Vol] 27.0 mmol/L 21.0-32.0 [facility] Chloride assayOrdered By: Henrry Myers on 07-20-2025 Chloride [Moles/Vol] 103 mmol/L 98-108 [facility] Comprehensive Metabolic Prof ilon 07-20-2025 Albumin [Mass/Vol] 3.0 g/dL Low 3.5-5.0 [facility] Comment on above: Performed By: #### L 100.0100, L500.4050 ####[facility] [address] [place], [address] Albumin/Globulin [Mass ratio] 1.4 {ratio} Normal 0.9-2.4 [facility] Comment on above: Performed By: #### L 100.0100, L500.4050 ####[facility] [address] [place], [address] ALK PHOS 134 U/L High 35-104 [facility] Comment on above: Performed By: #### L 100.0100, L500.4050 ####[facility] [address] [place], [address] ALT [Catalytic activity/Vol] 114 U/L High <=34 [facility] Comment on above: Performed By: #### L 100.0100, L500.4050 ####[facility] [address] [place], [address] AST [Catalytic activity/Vol] 136 U/L High <=31 [facility] Comment on above: Performed By: #### L 100.0100, L500.4050 ####[facility] [address] [place], [address] Bilirubin [Mass/Vol] 0.86 mg/dL Normal 0.00-1.30 [facility] Comment on above: Performed By: #### L 100.0100, L500.4050 ####[facility] [address] [place], [address] BUN/CRE 10.1 RATIO Normal 10-20 [facility] Comment on above: Performed By: #### L 100.0100, L500.4050 ####[facility] [address] [place], [address] Calcium [Mass/Vol] 7.6 mg/dL Normal 7.6-11.0 [facility] Comment on above: Performed By: #### L 100.0100, L500.4050 ####[facility] [address] [place], [address] Chloride [Moles/Vol] 103 mmol/L Normal 98-108 [facility] Comment on above: Performed By: #### L 100.0100, L500.4050 ####[facility] [address] [place], [address] CO2 [Moles/Vol] 27.0 mmol/L Normal 21.0-32.0 [facility] Comment on above: Performed By: #### L 100.0100, L500.4050 ####[facility] [address] [place], [address] Creatinine [Mass/Vol] 0.40 mg/dL Low 0.70-1.20 [facility] Comment on above: Performed By: #### L 100.0100, L500.4050 ####[facility] [address] [place], [address] ECRCL 148.53 ml/min Normal 50-250 [facility] Comment on above: Performed By: #### L 100.0100, L500.4050 ####[facility] [address] [place], [address] GAP 10 Normal 5-15 [facility] Comment on above: Performed By: #### L 100.0100, L500.4050 ####[facility] [address] [place], [address] GFR/1.73 sq M.predicted among non-blacks MDRD (S/P/Bld) [Vol rate/Area] 122 mL/min/{1.73_m2} Normal >60 [facility] Comment on above: Result Comment: mL/m in/1.73m2 CKD-EPI Creatinine Equation (2020) Performed By: #### L 100.0100, L500.4050 ####[facility] [address] [place], [address] Globulin (S) [Mass/Vol] 2.1 g/dL Low 2.2-4.2 [facility] Comment on above: Performed By: #### L 100.0100, L500.4050 ####[facility] [address] [place], [address] Glucose [Mass/Vol] 107 mg/dL High 70-99 [facility] Comment on above: Performed By: #### L 100.0100, L500.4050 ####[facility] [address] [place], [place], [address] Potassium [Moles/Vol] 3.6 mmol/L Normal 3.3-5.1 [facility] Comment on above: Performed By: #### L 100.0100, L500.4050 ####[facility] [address] [place], [address] Sodium [Moles/Vol] 140 mmol/L Normal 133-145 [facility] Comment on above: Performed By: #### L 100.0100, L500.4050 ####[facility] [address] [place], [address] T PROT 5.1 g/dL Low 5.9-8.4 [facility] Comment on above: Performed By: #### L 100.0100, L500.4050 ####[facility] [address] [place], [address] Urea nitrogen [Mass/Vol] 4 mg/dL Normal 4-19 [facility] Comment on above: Performed By: #### L 100.0100, L500.4050 ####[facility] [address] [place], [address] Eosinophil percentageOrdered By: Canelo Myers on 07-20-2025 Eosinophils/100 WBC (Bld) 1.6 % 0-5 [facility] Erythrocyte distribution wid th ratioOrdered By: Canelo Myers on 07-20-2025 Erythrocyte distribution width (RBC) [Ratio] 15.2 % High 11.6-14.6 [facility] Erythrocyte distribution wid th standard deviationOrdered By: Canelo Myers on 07-20-2025 Erythrocyte distribution width (RBC) [Ratio] 57.6 fl High 35.1-43.9 [facility] Glomerular filtration rate ( GFR) estimation/1.73 sq m using serum, plasma, or whole bOrdered By: Canelo Myers on 07-20-2025 GFR/1.73 sq M.predicted among non-blacks MDRD (S/P/Bld) [Vol rate/Area] 122 mL/min/{1.73_m2} >60 [facility] deOrdered By: Canelo Myers on 07-20-2025 Glucose [Mass/Vol] 217 mg/dL High 74-106 [facility] Hematocrit Auto (Bld) [Volum e fraction]Ordered By: Canelo Myers on 07-20-2025 Hematocrit (Bld) [Volume fraction] 29.2 % Low 37-47 [facility] Hemoglobin measurementOrdere d By: Canelo Myers on 07-20-2025 Hemoglobin (Bld) [Mass/Vol] 9.6 g/dL Low 12.0-15.0 [facility] Immature granulocytes/100 WB C Auto (Bld)Ordered By: Canelo Myers on 07-20-2025 Immature granulocytes/100 WBC (Bld) 0.200 % 0.0-0.9 [facility] MCV (mean corpuscular volume ) determinationOrdered By: Canelo Myers on 07-20-2025 MCV (RBC) [Entitic vol] 102.8 fL High 81-99 [facility] Mean corpuscular hemoglobin (MCH) determinationOrdered By: Canelo Myers on 07-20-2025 MCH (RBC) [Entitic mass] 33.8 pg High 27.0-32.0 [facility] Monocyte percentageOrdered B y: Canelo Myers on 07-20-2025 Monocytes/100 WBC (Bld) 11.8 % High 0-10 [facility] Neutrophil percentageOrdered By: Canelo Myers on 07-20-2025 Neutrophils/100 WBC (Bld) 66.7 % 47-70 [facility] No Panel InformationOrdered By: Canelo Myers on 07-20-2025 136 U/L High <32 [facility] Platelet countOrdered By: Henrry Myers on 07-20-2025 Platelets (Bld) [#/Vol] 114 10*3/uL Low 150-450 [facility] Potassium measurement (mass/ volume)Ordered By: Canelo Myers on 07-20-2025 Potassium (Unsp spec) [Mass/Vol] 3.6 mmol/L 3.3-5.1 [facility] RBC Auto (Bld) [#/Vol]Ordere d By: Canelo Myers on 07-20-2025 RBC (Bld) [#/Vol] 2.84 10*6/uL Low 4.2-5.4 [facility] Serum creatinine measurement (mass/volume)Ordered By: Canelo Myers on 07-20-2025 Creatinine [Mass/Vol] 0.40 mg/dL Low 0.70-1.20 [facility] Serum globulin measurementOr dered By: Canelo Myers on 07-20-2025 Globulin (S) [Mass/Vol] 2.1 g/dL Low 2.2-4.2 [facility] Serum glucose measurement (m ass/volume)Ordered By: Canelo Myers on 07-20-2025 Glucose [Mass/Vol] 107 mg/dL High 70-99 [facility] Serum or plasma alanine wilkerson otransferase (ALT) measurementOrdered By: Canelo Myers on 07-20-2025 ALT [Catalytic activity/Vol] 114 U/L High <35 [facility] Serum or plasma albumin alphonso urement (mass/volume)Ordered By: Canelo Myers on 07-20-2025 Albumin [Mass/Vol] 3.0 g/dL Low 3.5-5.0 [facility] Serum or plasma albumin/glob ulin mass ratioOrdered By: Canelo Myers on 07-20-2025 Albumin/Globulin [Mass ratio] 1.4 {ratio} 0.9-2.4 [facility] Serum or plasma alkaline trinity sphatase measurementOrdered By: Canelo Myers on 07-20-2025 ALP [Catalytic activity/Vol] 134 U/L High 35-104 [facility] Serum or plasma calcium alphonso urement (mass/volume)Ordered By: Canelo Myers on 07-20-2025 Calcium [Mass/Vol] 7.6 mg/dL 7.6-11.0 [facility] Serum or plasma urea nitroge n measurement (mass/volume)Ordered By: Canelo Myers on 07-20-2025 Urea nitrogen [Mass/Vol] 4 mg/dL 4-19 [facility] Sodium levelOrdered By: Ganesh Myers on 07-20-2025 Sodium [Moles/Vol] 140 mmol/L 133-145 [facility] Total proteinOrdered By: Guido Myers on 07-20-2025 Protein [Mass/Vol] 5.1 g/dL Low 5.9-8.4 [facility] White blood cell (WBC) count Ordered By: Canelo Myers on 07-20-2025 WBC (Bld) [#/Vol] 4.3 10*3/uL Low 4.4-11.0 [facility] Bedside Glucoseon 07-19-2025 FINGERSTICK GLU 121 mg/dL High 74-106 [facility] Comment on above: Result Comment: CHAUNCEY GEMENT OF PATIENT CARE PER NURSING PROTOCOL Performed By: #### L 501.080 ####[facility] [address] [place], [address] FINGERSTICK GLU 91 mg/dL Normal 74-106 [facility] Comment on above: Result Comment: CHAUNCEY GEMENT OF PATIENT CARE PER NURSING PROTOCOL Performed By: #### L 501.080 ####[facility] [address] [place], [address] FINGERSTICK GLU 140 mg/dL High 74-106 [facility] Comment on above: Result Comment: CHAUNCEY GEMENT OF PATIENT CARE PER NURSING PROTOCOL Performed By: #### L 501.080 ####[facility] [address] [place], [address] FINGERSTICK GLU 94 mg/dL Normal 74-106 [facility] Comment on above: Result Comment: CHAUNCEY GEMENT OF PATIENT CARE PER NURSING PROTOCOL Performed By: #### L 501.080 ####[facility] [address] [place], [address] CBC W/Diff, Automatedon - PLT EST SLT DEC Normal ADEQ [facility] Comment on above: Performed By: #### L 500.4050, L100.0100 ####[facility] [address] [place], [address] Comprehensive Metabolic Prof ilon 07-19-2025 Albumin [Mass/Vol] 3.0 g/dL Low 3.5-5.0 [facility] Comment on above: Performed By: #### L 500.4050, L100.0100 ####[facility] [address] [place], [address] Albumin/Globulin [Mass ratio] 1.4 {ratio} Normal 0.9-2.4 [facility] Comment on above: Performed By: #### L 500.4050, L100.0100 ####[facility] [address] [place], [address] ALK PHOS 133 U/L High 35-104 [facility] Comment on above: Performed By: #### L 500.4050, L100.0100 ####[facility] [address] [place], [address] ALT [Catalytic activity/Vol] 150 U/L High <=34 [facility] Comment on above: Performed By: #### L 500.4050, L100.0100 ####[facility] [address] [place], [address] AST [Catalytic activity/Vol] 289 U/L High <=31 [facility] Comment on above: Performed By: #### L 500.4050, L100.0100 ####[facility] [address] [place], [address] Bilirubin [Mass/Vol] 1.07 mg/dL Normal 0.00-1.30 [facility] Comment on above: Performed By: #### L 500.4050, L100.0100 ####[facility] [address] [place], [address] BUN/CRE 6.1 RATIO Low 10-20 [facility] Comment on above: Performed By: #### L 500.4050, L100.0100 ####[facility] [address] [place], [address] Calcium [Mass/Vol] 7.0 mg/dL Low 7.6-11.0 [facility] Comment on above: Performed By: #### L 500.4050, L100.0100 ####[facility] [address] [place], [address] Chloride [Moles/Vol] 98 mmol/L Normal 98-108 [facility] Comment on above: Performed By: #### L 500.4050, L100.0100 ####[facility] [address] [place], [address] CO2 [Moles/Vol] 25.2 mmol/L Normal 21.0-32.0 [facility] Comment on above: Performed By: #### L 500.4050, L100.0100 ####[facility] [address] [place], [address] Creatinine [Mass/Vol] 0.42 mg/dL Low 0.70-1.20 [facility] Comment on above: Performed By: #### L 500.4050, L100.0100 ####[facility] [address] [place], [address] ECRCL 141.45 ml/min Normal 50-250 [facility] Comment on above: Performed By: #### L 500.4050, L100.0100 ####[facility] [address] [place], [address] GAP 10 Normal 5-15 [facility] Comment on above: Performed By: #### L 500.4050, L100.0100 ####[facility] [address] [place], [address] GFR/1.73 sq M.predicted among non-blacks MDRD (S/P/Bld) [Vol rate/Area] 121 mL/min/{1.73_m2} Normal >60 [facility] Comment on above: Result Comment: mL/m in/1.73m2 CKD-EPI Creatinine Equation (2020) Performed By: #### L 500.4050, L100.0100 ####[facility] [address] [place], [address] Globulin (S) [Mass/Vol] 2.1 g/dL Low 2.2-4.2 [facility] Comment on above: Performed By: #### L 500.4050, L100.0100 ####[facility] [address] [place], [address] Glucose [Mass/Vol] 93 mg/dL Normal 70-99 [facility] Comment on above: Performed By: #### L 500.4050, L100.0100 ####[facility] [address] [place], [address] Potassium [Moles/Vol] 3.5 mmol/L Normal 3.3-5.1 [facility] Comment on above: Performed By: #### L 500.4050, L100.0100 ####[facility] [address] [place], [address] Sodium [Moles/Vol] 134 mmol/L Normal 133-145 [facility] Comment on above: Performed By: #### L 500.4050, L100.0100 ####[facility] [address] [place], [address] T PROT 5.0 g/dL Low 5.9-8.4 [facility] Comment on above: Performed By: #### L 500.4050, L100.0100 ####[facility] [address] [place], [address] Urea nitrogen [Mass/Vol] 3 mg/dL Low 4-19 [facility] Comment on above: Performed By: #### L 500.4050, L100.0100 ####[facility] [address] [place], [address] Platelet estimateOrdered By: Canelo Myers on 07-19-2025 Platelets LM Ql (Bld) SLT DEC ADEQ [facility] Bedside Glucoseon 07-18-2025 FINGERSTICK GLU 104 mg/dL Normal 74-106 [facility] Comment on above: Result Comment: CHAUNCEY GEMENT OF PATIENT CARE PER NURSING PROTOCOL Performed By: #### L 501.080 ####[facility] [address] [place], [address] FINGERSTICK GLU 108 mg/dL High 74-106 [facility] Comment on above: Result Comment: CHAUNCEY GEMENT OF PATIENT CARE PER NURSING PROTOCOL Performed By: #### L 501.080 ####[facility] [address] [place], [address] FINGERSTICK GLU 109 mg/dL High 74-106 [facility] Comment on above: Result Comment: CHAUNCEY GEMENT OF PATIENT CARE PER NURSING PROTOCOL Performed By: #### L 501.080 ####[facility] [address] [place], [address] FINGERSTICK GLU 84 mg/dL Normal 74-106 [facility] Comment on above: Result Comment: CHAUNCEY GEMENT OF PATIENT CARE PER NURSING PROTOCOL Performed By: #### L 501.080 ####[facility] [address] [place], [address] CBC W/Diff, Automatedon 06-30 Absolute Lymph 0.64 X10 3/uL Low 0.83-4.51 [facility] Comment on above: Performed By: #### L 500.4050, L100.0100, L501.5200, L501.2300 ####[facility] [address] [place], [address] Absolute Neut 3.3 X10 3/uL Normal 2.0-7.7 [facility] Comment on above: Performed By: #### L 500.4050, L100.0100, L501.5200, L501.2300 ####[facility] [address] [place], [address] Basophils/100 WBC (Bld) 0.4 % Normal 0-1 [facility] Comment on above: Performed By: #### L 500.4050, L100.0100, L501.5200, L501.2300 ####[facility] [address] [place], [address] Eosinophils/100 WBC (Bld) 2.4 % Normal 0-5 [facility] Comment on above: Performed By: #### L 500.4050, L100.0100, L501.5200, L501.2300 ####[facility] [address] [place], [address] Erythrocyte distribution width (RBC) [Ratio] 15.8 % High 11.6-14.6 [facility] Comment on above: Performed By: #### L 500.4050, L100.0100, L501.5200, L501.2300 ####[facility] [address] [place], [address] Hematocrit (Bld) [Volume fraction] 32.6 % Low 37-47 [facility] Comment on above: Performed By: #### L 500.4050, L100.0100, L501.5200, L501.2300 ####[facility] [address] [place], [address] Hemoglobin (Bld) [Mass/Vol] 10.8 g/dL Low 12.0-15.0 [facility] Comment on above: Performed By: #### L 500.4050, L100.0100, L501.5200, L501.2300 ####[facility] [address] [place], [address] IG% 0.700 Normal 0.0-0.9 [facility] Comment on above: Result Comment: IG% - Immature Granulocytes (promyelocytes, myelocytes andmetamyelocytes) > 1% indicates that a LEFT SHIFT is Present. Performed By: #### L 500.4050, L100.0100, L501.5200, L501.2300 ####[facility] [address] [place], [address] Lymphocytes/100 WBC (Bld) 14.1 % Low 19-41 [facility] Comment on above: Performed By: #### L 500.4050, L100.0100, L501.5200, L501.2300 ####[facility] [address] [place], [address] MCH (RBC) [Entitic mass] 33.9 pg High 27.0-32.0 [facility] Comment on above: Performed By: #### L 500.4050, L100.0100, L501.5200, L501.2300 ####[facility] [address] [place], [address] MCHC (RBC) [Mass/Vol] 33.1 g/dL Normal 32-36 [facility] Comment on above: Performed By: #### L 500.4050, L100.0100, L501.5200, L501.2300 ####[facility] [address] [place], [address] MCV (RBC) [Entitic vol] 102.2 fL High 81-99 [facility] Comment on above: Performed By: #### L 500.4050, L100.0100, L501.5200, L501.2300 ####[facility] [address] [place], [address] Monocytes/100 WBC (Bld) 9.2 % Normal 0-10 [facility] Comment on above: Performed By: #### L 500.4050, L100.0100, L501.5200, L501.2300 ####[facility] [address] [place], [address] Neutrophils/100 WBC (Bld) 73.2 % High 47-70 [facility] Comment on above: Performed By: #### L 500.4050, L100.0100, L501.5200, L501.2300 ####[facility] [address] [place], [address] Nucleated RBC (Bld) [#/Vol] 0 10*3/uL Normal 0-5 [facility] Comment on above: Performed By: #### L 500.4050, L100.0100, L501.5200, L501.2300 ####[facility] [address] [place], [address] Platelet mean volume (Bld) [Entitic vol] 10.0 fL Normal 6.2-12.0 [facility] Comment on above: Performed By: #### L 500.4050, L100.0100, L501.5200, L501.2300 ####[facility] [address] [place], [address] Platelets (Bld) [#/Vol] 103 10*3/uL Low 150-450 [facility] Comment on above: Performed By: #### L 500.4050, L100.0100, L501.5200, L501.2300 ####[facility] [address] [place], [address] RBC (Bld) [#/Vol] 3.19 10*6/uL Low 4.2-5.4 [facility] Comment on above: Performed By: #### L 500.4050, L100.0100, L501.5200, L501.2300 ####[facility] [address] [place], [address] RDW SD 58.9 fl High 35.1-43.9 [facility] Comment on above: Performed By: #### L 500.4050, L100.0100, L501.5200, L501.2300 ####[facility] [address] [place], [address] WBC (Bld) [#/Vol] 4.6 10*3/uL Normal 4.4-11.0 [facility] Comment on above: Performed By: #### L 500.4050, L100.0100, L501.5200, L501.2300 ####[facility] [address] [place], [address] Comprehensive Metabolic [facility] 07-18-2025 Albumin [Mass/Vol] 3.3 g/dL Low 3.5-5.0 [facility] Comment on above: Performed By: #### L 500.4050, L100.0100, L501.5200, L501.2300 ####[facility] [address] [place], [address] Albumin/Globulin [Mass ratio] 1.5 {ratio} Normal 0.9-2.4 [facility] Comment on above: Performed By: #### L 500.4050, L100.0100, L501.5200, L501.2300 ####[facility] [address] [place], [address] ALK PHOS 176 U/L High 35-104 [facility] Comment on above: Performed By: #### L 500.4050, L100.0100, L501.5200, L501.2300 ####[facility] [address] [place], [address] ALT [Catalytic activity/Vol] 223 U/L High <=34 [facility] Comment on above: Performed By: #### L 500.4050, L100.0100, L501.5200, L501.2300 ####[facility] [address] [place], [address] AST [Catalytic activity/Vol] 788 U/L High <=31 [facility] Comment on above: Performed By: #### L 500.4050, L100.0100, L501.5200, L501.2300 ####[facility] [address] [place], [address] Bilirubin [Mass/Vol] 1.36 mg/dL High 0.00-1.30 [facility] Comment on above: Performed By: #### L 500.4050, L100.0100, L501.5200, L501.2300 ####[facility] [address] [place], [address] BUN/CRE 16.1 RATIO Normal 10-20 [facility] Comment on above: Performed By: #### L 500.4050, L100.0100, L501.5200, L501.2300 ####[facility] [address] [place], [address] Calcium [Mass/Vol] 7.0 mg/dL Low 7.6-11.0 [facility] Comment on above: Performed By: #### L 500.4050, L100.0100, L501.5200, L501.2300 ####[facility] [address] [place], [address] Chloride [Moles/Vol] 100 mmol/L Normal 98-108 [facility] Comment on above: Performed By: #### L 500.4050, L100.0100, L501.5200, L501.2300 ####[facility] [address] [place], [address] CO2 [Moles/Vol] 24.0 mmol/L Normal 21.0-32.0 [facility] Comment on above: Performed By: #### L 500.4050, L100.0100, L501.5200, L501.2300 ####[facility] [address] [place], [address] Creatinine [Mass/Vol] 0.32 mg/dL Low 0.70-1.20 [facility] Comment on above: Performed By: #### L 500.4050, L100.0100, L501.5200, L501.2300 ####[facility] [address] [place], [address] ECRCL 185.66 ml/min Normal 50-250 [facility] Comment on above: Performed By: #### L 500.4050, L100.0100, L501.5200, L501.2300 ####[facility] [address] [place], [address] GAP 13 Normal 5-15 [facility] Comment on above: Performed By: #### L 500.4050, L100.0100, L501.5200, L501.2300 ####[facility] [address] [place], [address] GFR/1.73 sq M.predicted among non-blacks MDRD (S/P/Bld) [Vol rate/Area] 128 mL/min/{1.73_m2} Normal >60 [facility] Comment on above: Result Comment: mL/m in/1.73m2 CKD-EPI Creatinine Equation (2020) Performed By: #### L 500.4050, L100.0100, L501.5200, L501.2300 ####[facility] [address] [place], [address] Globulin (S) [Mass/Vol] 2.2 g/dL Normal 2.2-4.2 [facility] Comment on above: Performed By: #### L 500.4050, L100.0100, L501.5200, L501.2300 ####[facility] [address] [place], [address] Glucose [Mass/Vol] 76 mg/dL Normal 70-99 [facility] Comment on above: Performed By: #### L 500.4050, L100.0100, L501.5200, L501.2300 ####[facility] [address] [place], [address] Potassium [Moles/Vol] 3.6 mmol/L Normal 3.3-5.1 [facility] Comment on above: Performed By: #### L 500.4050, L100.0100, L501.5200, L501.2300 ####[facility] [address] [place], [address] Sodium [Moles/Vol] 137 mmol/L Normal 133-145 [facility] Comment on above: Performed By: #### L 500.4050, L100.0100, L501.5200, L501.2300 ####[facility] [address] [place], [address] T PROT 5.5 g/dL Low 5.9-8.4 [facility] Comment on above: Performed By: #### L 500.4050, L100.0100, L501.5200, L501.2300 ####[facility] [address] [place], [address] Urea nitrogen [Mass/Vol] 5 mg/dL Normal 4-19 [facility] Comment on above: Performed By: #### L 500.4050, L100.0100, L501.5200, L501.2300 ####[facility] [address] [place], [address] Lipaseon 07-18-2025 Lipase [Catalytic activity/Vol] 1128 U/L High 13-75 [facility] Comment on above: Result Comment: Lucie schultz note:LIPASE revised reference range effective 23.New Lipase methodology. Expected to produce lower valuesthan the previous assay method.NEW Reference Range: 13 - 75 U/L Performed By: #### L 501.2450 ####[facility] [address] [place], [address] Magnesiumon 07-18-2025 Magnesium [Mass/Vol] 1.7 mg/dL Normal 1.5-2.2 [facility] Comment on above: Performed By: #### L 500.4050, L100.0100, L501.5200, L501.2300 ####[facility] [address] [place], [address] Magnesium measurement (mass/ volume)Ordered By: Canelo Myers on 07-18-2025 Magnesium (Unsp spec) [Mass/Vol] 1.7 mg/dL 1.5-2.2 [facility] Phosphoruson 07-18-2025 Phosphate [Mass/Vol] 2.7 mg/dL Normal 2.7-4.5 [facility] Comment on above: Performed By: #### L 500.4050, L100.0100, L501.5200, L501.2300 ####[facility] [address] [place], [address] Abdomen/Pelvis W IV Cont ONL Yon 07-17-2025 Abdomen/Pelvis W IV Cont ONLY Normal [facility] Absolute lymphocyte countOrd ered By: Francisco Colon on 07-17-2025 Lymphocytes Auto (Unsp spec) [#/Vol] 0.78 10*3/uL Low 0.83-4.51 [facility] Alcohol, Blood (Medical)-Ser umon 07-17-2025 SERUM ETOH 34.9 mg/dL High <=10.0 [facility] Comment on above: Result Comment: This test is for medical purposes only. The legaldefinition of intoxication varies according to local law. Performed By: #### L 501.9100 ####[facility] [address] [place], [address] Amylaseon 07-17-2025 VENANCIO 898 U/L High 28-100 [facility] Comment on above: Performed By: #### L 500.4050, L501.2450, L501.2400 ####[facility] [address] [place], [address] Anion gap in Serum or Plasma Ordered By: Francisco Colon on 07-17-2025 Anion gap [Moles/Vol] 19 mmol/L High 5-15 [facility] Automated lymphocyte count a s percentage of total leukocytesOrdered By: Francisco Colon on 07-17-2025 Lymphocytes/100 WBC Auto (Unsp spec) 11.2 % Low 19-41 [facility] BUN/creatinine ratioOrdered By: Francisco Colon on 07-17-2025 Urea nitrogen/Creatinine [Mass ratio] 15.5 mg/mg 10-20 [facility] Basophil percentageOrdered B y: Francisco Colon on 07-17-2025 Basophils/100 WBC (Bld) 0.4 % 0-1 [facility] Bedside Glucoseon 07-17-2025 FINGERSTICK GLU 151 mg/dL High 74-106 [facility] Comment on above: Result Comment: CHAUNCEY GEMENT OF PATIENT CARE PER NURSING PROTOCOL Performed By: #### L 501.080 ####[facility] [address] [place], [address] FINGERSTICK GLU 71 mg/dL Low 74-106 [facility] Comment on above: Result Comment: CHAUNCEY GEMENT OF PATIENT CARE PER NURSING PROTOCOL Performed By: #### L 501.080 ####[facility] [address] [place], [address] Bilirubin Test strip Ql (U)O rdered By: Francisco Colon on 07-17-2025 Bilirubin Ql (U) Negative Negative [facility] Bilirubin, totalOrdered By: Francisco Colon on 07-17-2025 Bilirubin [Mass/Vol] 0.43 mg/dL 0.00-1.30 [facility] CBC W/Diff, Automatedon 08- Absolute Lymph 0.78 X10 3/uL Low 0.83-4.51 [facility] Comment on above: Performed By: #### L 100.0100 ####[facility] [address] [place], [address] Absolute Neut 5.6 X10 3/uL Normal 2.0-7.7 [facility] Comment on above: Performed By: #### L 100.0100 ####[facility] [address] [place], [address] Basophils/100 WBC (Bld) 0.4 % Normal 0-1 [facility] Comment on above: Performed By: #### L 100.0100 ####[facility] [address] [place], [address] Eosinophils/100 WBC (Bld) 0.3 % Normal 0-5 [facility] Comment on above: Performed By: #### L 100.0100 ####[facility] [address] [place], [address] Erythrocyte distribution width (RBC) [Ratio] 15.9 % High 11.6-14.6 [facility] Comment on above: Performed By: #### L 100.0100 ####[facility] [address] [place], [address] Hematocrit (Bld) [Volume fraction] 38.5 % Normal 37-47 [facility] Comment on above: Performed By: #### L 100.0100 ####[facility] [address] [place], [address] Hemoglobin (Bld) [Mass/Vol] 13.2 g/dL Normal 12.0-15.0 [facility] Comment on above: Performed By: #### L 100.0100 ####[facility] [address] [place], [address] IG% 0.600 Normal 0.0-0.9 [facility] Comment on above: Result Comment: IG% - Immature Granulocytes (promyelocytes, myelocytes andmetamyelocytes) > 1% indicates that a LEFT SHIFT is Present. Performed By: #### L 100.0100 ####[facility] [address] [place], [address] Lymphocytes/100 WBC (Bld) 11.2 % Low 19-41 [facility] Comment on above: Performed By: #### L 100.0100 ####[facility] [address] [place], [address] MCH (RBC) [Entitic mass] 33.8 pg High 27.0-32.0 [facility] Comment on above: Performed By: #### L 100.0100 ####[facility] [address] [place], [address] MCHC (RBC) [Mass/Vol] 34.3 g/dL Normal 32-36 [facility] Comment on above: Performed By: #### L 100.0100 ####[facility] [address] [place], [address] MCV (RBC) [Entitic vol] 98.7 fL Normal 81-99 [facility] Comment on above: Performed By: #### L 100.0100 ####[facility] [address] [place], [address] Monocytes/100 WBC (Bld) 7.2 % Normal 0-10 [facility] Comment on above: Performed By: #### L 100.0100 ####[facility] [address] [place], [address] Neutrophils/100 WBC (Bld) 80.3 % High 47-70 [facility] Comment on above: Performed By: #### L 100.0100 ####[facility] [address] [place], [address] Nucleated RBC (Bld) [#/Vol] 0 10*3/uL Normal 0-5 [facility] Comment on above: Performed By: #### L 100.0100 ####[facility] [address] [place], [address] Platelet mean volume (Bld) [Entitic vol] 9.7 fL Normal 6.2-12.0 [facility] Comment on above: Performed By: #### L 100.0100 ####[facility] [address] [place], [address] Platelets (Bld) [#/Vol] 150 10*3/uL Normal 150-450 [facility] Comment on above: Performed By: #### L 100.0100 ####[facility] [address] [place], [address] RBC (Bld) [#/Vol] 3.90 10*6/uL Low 4.2-5.4 [facility] Comment on above: Performed By: #### L 100.0100 ####[facility] [address] [place], [address] RDW SD 56.5 fl High 35.1-43.9 [facility] Comment on above: Performed By: #### L 100.0100 ####[facility] [address] [place], [address] WBC (Bld) [#/Vol] 7.0 10*3/uL Normal 4.4-11.0 [facility] Comment on above: Performed By: #### L 100.0100 ####[facility] [address] [place], [address] Carbon dioxide, total [Moles /volume] in Central venous bloodOrdered By: Francisco Colon on 07-17-2025 CO2 [Moles/Vol] 25.6 mmol/L 21.0-32.0 [facility] Chloride assayOrdered By: Peyman Colon on 07-17-2025 Chloride [Moles/Vol] 99 mmol/L 98-108 [facility] Comprehensive Metabolic Prof ilon 07-17-2025 Albumin [Mass/Vol] 3.9 g/dL Normal 3.5-5.0 [facility] Comment on above: Performed By: #### L 500.4050, L501.2450, L501.2400 ####[facility] [address] [place], [address] Albumin/Globulin [Mass ratio] 1.4 {ratio} Normal 0.9-2.4 [facility] Comment on above: Performed By: #### L 500.4050, L501.2450, L501.2400 ####[facility] [address] [place], [address] ALK PHOS 98 U/L Normal 35-104 [facility] Comment on above: Performed By: #### L 500.4050, L501.2450, L501.2400 ####[facility] [address] [place], [address] ALT [Catalytic activity/Vol] 92 U/L High <=34 [facility] Comment on above: Performed By: #### L 500.4050, L501.2450, L501.2400 ####[facility] [address] [place], [address] AST [Catalytic activity/Vol] 165 U/L High <=31 [facility] Comment on above: Performed By: #### L 500.4050, L501.2450, L501.2400 ####[facility] [address] [place], [address] Bilirubin [Mass/Vol] 0.43 mg/dL Normal 0.00-1.30 [facility] Comment on above: Performed By: #### L 500.4050, L501.2450, L501.2400 ####[facility] [address] [place], [address] BUN/CRE 15.5 RATIO Normal 10-20 [facility] Comment on above: Performed By: #### L 500.4050, L501.2450, L501.2400 ####[facility] [address] [place], [address] Calcium [Mass/Vol] 8.6 mg/dL Normal 7.6-11.0 [facility] Comment on above: Performed By: #### L 500.4050, L501.2450, L501.2400 ####[facility] [address] [place], [address] Chloride [Moles/Vol] 99 mmol/L Normal 98-108 [facility] Comment on above: Performed By: #### L 500.4050, L501.2450, L501.2400 ####[facility] [address] [place], [address] CO2 [Moles/Vol] 25.6 mmol/L Normal 21.0-32.0 [facility] Comment on above: Performed By: #### L 500.4050, L501.2450, L501.2400 ####[facility] [address] [place], [address] Creatinine [Mass/Vol] 0.39 mg/dL Low 0.70-1.20 [facility] Comment on above: Performed By: #### L 500.4050, L501.2450, L501.2400 ####[facility] [address] [place], [address] ECRCL 152.33 ml/min Normal 50-250 [facility] Comment on above: Performed By: #### L 500.4050, L501.2450, L501.2400 ####[facility] [address] [place], [address] GAP 19 High 5-15 [facility] Comment on above: Performed By: #### L 500.4050, L501.2450, L501.2400 ####[facility] [address] [place], [address] GFR/1.73 sq M.predicted among non-blacks MDRD (S/P/Bld) [Vol rate/Area] 123 mL/min/{1.73_m2} Normal >60 [facility] Comment on above: Result Comment: mL/m in/1.73m2 CKD-EPI Creatinine Equation (2020) Performed By: #### L 500.4050, L501.2450, L501.2400 ####[facility] [address] [place], [address] Globulin (S) [Mass/Vol] 2.7 g/dL Normal 2.2-4.2 [facility] Comment on above: Performed By: #### L 500.4050, L501.2450, L501.2400 ####[facility] [address] [place], [address] Glucose [Mass/Vol] 120 mg/dL High 70-99 [facility] Comment on above: Performed By: #### L 500.4050, L501.2450, L501.2400 ####[facility] [address] [place], [address] Potassium [Moles/Vol] 3.0 mmol/L Low 3.3-5.1 [facility] Comment on above: Performed By: #### L 500.4050, L501.2450, L501.2400 ####[facility] [address] [place], [address] Sodium [Moles/Vol] 144 mmol/L Normal 133-145 [facility] Comment on above: Performed By: #### L 500.4050, L501.2450, L501.2400 ####[facility] [address] [place], [address] T PROT 6.6 g/dL Normal 5.9-8.4 [facility] Comment on above: Performed By: #### L 500.4050, L501.2450, L501.2400 ####[facility] [address] [place], [address] Urea nitrogen [Mass/Vol] 6 mg/dL Normal 4-19 [facility] Comment on above: Performed By: #### L 500.4050, L501.2450, L501.2400 ####[facility] [address] [place], [address] Emergency Department Summary on 07-17-2025 Emergency Department Summary Normal [facility] Eosinophil percentageOrdered By: Francisco Colon on 07-17-2025 Eosinophils/100 WBC (Bld) 0.3 % 0-5 [facility] Erythrocyte distribution wid th ratioOrdered By: Francisco Colno on 07-17-2025 Erythrocyte distribution width (RBC) [Ratio] 15.9 % High 11.6-14.6 [facility] Erythrocyte distribution wid th standard deviationOrdered By: Francisco Colon on 07-17-2025 Erythrocyte distribution width (RBC) [Ratio] 56.5 fl High 35.1-43.9 [facility] Glomerular filtration rate ( GFR) estimation/1.73 sq m using serum, plasma, or whole bOrdered By: Francisco Colon on 07-17-2025 GFR/1.73 sq M.predicted among non-blacks MDRD (S/P/Bld) [Vol rate/Area] 123 mL/min/{1.73_m2} >60 [facility] H AND P Exam - Hospitaliston 07-17-2025 H&P Exam - Hospitalist Normal [facility] Hematocrit Auto (Bld) [Volum e fraction]Ordered By: Francisco Colon on 07-17-2025 Hematocrit (Bld) [Volume fraction] 38.5 % 37-47 [facility] Hemoglobin measurementOrdere d By: Francisco Colon on 07-17-2025 Hemoglobin (Bld) [Mass/Vol] 13.2 g/dL 12.0-15.0 [facility] Immature granulocytes/100 WB C Auto (Bld)Ordered By: Francisco Colon on 07-17-2025 Immature granulocytes/100 WBC (Bld) 0.600 % 0.0-0.9 [facility] Ketones Test strip Ql (U)Ord ered By: Francisco Colon on 07-17-2025 Ketones Ql (U) 5 mg/dl High Negative [facility] Lipaseon 07-17-2025 Lipase [Catalytic activity/Vol] U/L High 13-75 [facility] Comment on above: Result Comment: Lucie schultz note:LIPASE revised reference range effective 23.New Lipase methodology. Expected to produce lower valuesthan the previous assay method.NEW Reference Range: 13 - 75 U/L Performed By: #### L 500.4050, L501.2450, L501.2400 ####[facility] [address] [place], [place], [address] MCV (mean corpuscular volume ) determinationOrdered By: Francisco Colon on 07-17-2025 MCV (RBC) [Entitic vol] 98.7 fL 81-99 [facility] Magnesiumon 07-17-2025 Magnesium [Mass/Vol] 1.1 mg/dL Low 1.5-2.2 [facility] Comment on above: Performed By: #### L 501.2300, L501.5200 ####[facility] [address] [place], [place], [address] Mean corpuscular hemoglobin (MCH) determinationOrdered By: Francisco Colon on 07-17-2025 MCH (RBC) [Entitic mass] 33.8 pg High 27.0-32.0 [facility] Monocyte percentageOrdered B y: Francisco Colon on 07-17-2025 Monocytes/100 WBC (Bld) 7.2 % 0-10 [facility] Mucus LM Ql (Urine sed)Order ed By: Francisco Colon on 07-17-2025 Mucus Ql (Urine sed) 0 SEEN /hpf [facility] Neutrophil percentageOrdered By: Francisco Colon on 07-17-2025 Neutrophils/100 WBC (Bld) 80.3 % High 47-70 [facility] Nitrite Test strip Ql (U)Ord ered By: Francisco Colon on 07-17-2025 Nitrite Ql (U) Negative Negative [facility] No Panel InformationOrdered By: Francisco Colon on 07-17-2025 165 U/L High <32 [facility] Phosphoruson 07-17-2025 Phosphate [Mass/Vol] 4.4 mg/dL Normal 2.7-4.5 [facility] Comment on above: Performed By: #### L 501.2300, L501.5200 ####[facility] [address] [place], [place], [id number] Platelet countOrdered By: Peyman Colon on 07-17-2025 Platelets (Bld) [#/Vol] 150 10*3/uL 150-450 [facility] Potassium measurement (mass/ volume)Ordered By: Francisco Colon on 07-17-2025 Potassium (Unsp spec) [Mass/Vol] 3.0 mmol/L Low 3.3-5.1 [facility] ,Serum,hCG Quali.on 07-17-2025 HCG, SERUM QUAL Negative Normal [facility] Comment on above: Performed By: #### L 860.2100 ####[facility] [address] [place], [address] Protein Test strip Ql (U)Ord ered By: Francisco Colon on 07-17-2025 Protein Ql (U) 30 mg/dl High Negative [facility] Prothrombin Time w/INRon INR Coag (PPP) [Relative time] 1.0 {INR} Normal [facility] Comment on above: Performed By: #### L 300.3900 ####[facility] [address] [place], [address] PT Coag (PPP) [Time] 12.9 s Normal 11.7-14.9 [facility] Comment on above: Performed By: #### L 300.3900 ####[facility] [address] [place], [address] Prothrombin timeOrdered By: Canelo Myers on 07-17-2025 PT Coag (PPP) [Time] 12.9 s 11.7-14.9 [facility] RBC Auto (Bld) [#/Vol]Ordere d By: Francisco Colon on 07-17-2025 RBC (Bld) [#/Vol] 3.90 10*6/uL Low 4.2-5.4 [facility] Serum beta-hCG test, qualita tiveOrdered By: Francisco Colon on 07-17-2025 Beta HCG ( test) Ql Negative [facility] Serum creatinine measurement (mass/volume)Ordered By: Francisco Colon on 07-17-2025 Creatinine [Mass/Vol] 0.39 mg/dL Low 0.70-1.20 [facility] Serum globulin measurementOr dered By: Francisco Colon on 07-17-2025 Globulin (S) [Mass/Vol] 2.7 g/dL 2.2-4.2 [facility] Serum glucose measurement (m ass/volume)Ordered By: Francisco Colon on 07-17-2025 Glucose [Mass/Vol] 120 mg/dL High 70-99 [facility] Serum or plasma alanine wilkerson otransferase (ALT) measurementOrdered By: Francisco Colon on 07-17-2025 ALT [Catalytic activity/Vol] 92 U/L High <35 [facility] Serum or plasma albumin alphonso urement (mass/volume)Ordered By: Francisco Colon on 07-17-2025 Albumin [Mass/Vol] 3.9 g/dL 3.5-5.0 [facility] Serum or plasma albumin/glob ulin mass ratioOrdered By: Francisco Colon on 07-17-2025 Albumin/Globulin [Mass ratio] 1.4 {ratio} 0.9-2.4 [facility] Serum or plasma alkaline trinity sphatase measurementOrdered By: Francisco Colon on 07-17-2025 ALP [Catalytic activity/Vol] 98 U/L 35-104 [facility] Serum or plasma amylase alphonso urement (enzymatic activity/volume)Ordered By: Francisco Colon on 07-17-2025 Amylase [Catalytic activity/Vol] 898 U/L High 28-100 [facility] Serum or plasma calcium alphonso urement (mass/volume)Ordered By: Francisco Colon on 07-17-2025 Calcium [Mass/Vol] 8.6 mg/dL 7.6-11.0 [facility] Serum or plasma ethanol alphonso urement (mass/volume)Ordered By: Francisco Colon on 07-17-2025 Ethanol [Mass/Vol] 34.9 mg/dL High <10.1 [facility] Serum or plasma urea nitroge n measurement (mass/volume)Ordered By: Francisco Colon on 07-17-2025 Urea nitrogen [Mass/Vol] 6 mg/dL 4- [facility] Sodium levelOrdered By: Francisco Colon on 07-17-2025 Sodium [Moles/Vol] 144 mmol/L 133-145 [facility] Squamous epithelial cells de tection in urine sediment by light microscopyOrdered By: Francisco Colon on 07-17-2025 Epithelial cells.squamous LM Ql (Urine sed) 0-5 SEEN /hpf 04-07 [facility] Total proteinOrdered By: Rommel Colon on 07-17-2025 Protein [Mass/Vol] 6.6 g/dL 5.9-8.4 [facility] Urinalysis, Completeon 07-17 EPI,SQUAMOUS 0-5 SEEN Normal 04-07 [facility] Comment on above: Order Comment: CLEAN CATCH Performed By: #### L 400.0001 ####[facility] [address] [place], [place], [id number] BACTERIA 0 SEEN Normal None Seen [facility] Comment on above: Order Comment: CLEAN CATCH Performed By: #### L 400.0001 ####[facility] [address] [place], [address] Mucus Ql (Urine sed) 0 SEEN Normal [facility] Comment on above: Order Comment: CLEAN CATCH Performed By: #### L 400.0001 ####[facility] [address] [place], [address] RBC 0 SEEN Normal 0-5 [facility] Comment on above: Order Comment: CLEAN CATCH Performed By: #### L 400.0001 ####[facility] [address] [place], [place], [address] WBC 0 SEEN Normal 0-5 [facility] Comment on above: Order Comment: CLEAN CATCH Performed By: #### L 400.0001 ####[facility] [address] [place], [place], [id number] Urine clarityOrdered By: Rommel Colon on 07-17-2025 Clarity (U) Clear Clear [facility] Urine color determinationOrd ered By: Francisco Colon on 07-17-2025 Color (U) Yellow Yellow [facility] Urine glucose detectionOrder ed By: Francisco Colon on 07-17-2025 Glucose Ql (U) Normal mg/dl Normal [facility] Urine leukocyte esterase det ection by dipstickOrdered By: Francisco Colon on 07-17-2025 Leukocyte esterase Test strip Ql (U) 25 /ul High Negative [facility] Urine pHOrdered By: Francisco stuart on 07-17-2025 pH (U) 6.5 [pH] 5.0 - 8.0 [facility] Urine sediment bacteria coun t by microscopy (number/high power field)Ordered By: Francisco Colon on 07-17-2025 Bacteria LM.HPF (Urine sed) [#/Area] 0 /[HPF] None Seen [facility] Urine specific gravity measu rementOrdered By: Francisco Colon on 07-17-2025 Specific gravity (U) [Rel density] 1.010 1.002-1.030 [facility] Urine urobilinogen measureme ntOrdered By: Francisco Colon on 07-17-2025 Urobilinogen Ql (U) Normal mg/dl Normal [facility] White blood cell (WBC) count Ordered By: Francisco Colon on 07-17-2025 WBC (Bld) [#/Vol] 7.0 10*3/uL 4.4-11.0 [facility] White blood cell countOrdere d By: Francisco Colon on 07-17-2025 White blood cell count 0 SEEN /hpf 0-5 [facility] Bedside Glucoseon 05-28-2025 FINGERSTICK GLU 259 mg/dL High 74-106 [facility] Comment on above: Result Comment: CHAUNCEY GEMENT OF PATIENT CARE PER NURSING PROTOCOL Performed By: #### L 501.080 ####[facility] [address] [facility] [place] [address] FINGERSTICK GLU 164 mg/dL High [address] [facility] Comment on above: Result Comment: CHAUNCEY GEMENT OF PATIENT CARE PER NURSING PROTOCOL Performed By: #### L 501.080 ####[facility] [address] [facility] [place] [address] Discharge Instructionon 3 Discharge Instruction Normal [facility] deOrdered By: Mao Becker on 05-28-2025 Glucose [Mass/Vol] 259 mg/dL High 74-106 [facility] Comment on above: MANAGEMENT OF PATIEN T CARE PER NURSING PROTOCOL Bedside Glucoseon 05-27-2025 FINGERSTICK GLU 217 mg/dL High [address] [place] [address] Comment on above: Result Comment: CHAUNCEY GEMENT OF PATIENT CARE PER NURSING PROTOCOL Performed By: #### L 501.080 ####[facility] [address] [facility] [place] [address] FINGERSTICK GLU 179 mg/dL High [facility]106 [facility] Comment on above: Result Comment: CHAUNCEY GEMENT OF PATIENT CARE PER NURSING PROTOCOL Performed By: #### L 501.080 ####[facility] [address] [facility] [place] [address] FINGERSTICK GLU 246 mg/dL High [address] [place] [address] Comment on above: Result Comment: CHAUNCEY GEMENT OF PATIENT CARE PER NURSING PROTOCOL Performed By: #### L 501.080 ####[facility] [address] [facility] [place] [address] FINGERSTICK GLU 133 mg/dL High [address] [facility] Comment on above: Result Comment: CHAUNCEY GEMENT OF PATIENT CARE PER NURSING PROTOCOL Performed By: #### L 501.080 ####[facility] [address] [place], [address] Magnesiumon 05-27-2025 Magnesium [Mass/Vol] 1.7 mg/dL Normal 1.5-2.2 [facility] Comment on above: Performed By: #### L 501.5200 ####[facility] [address] [place], [address] Magnesium measurement (mass/ volume)Ordered By: Mao Becker on 05-27-2025 Magnesium (Unsp spec) [Mass/Vol] 1.7 mg/dL 1.5-2.2 [facility] Bedside Glucoseon 05-26-2025 FINGERSTICK GLU 243 mg/dL High 74-106 [facility] Comment on above: Result Comment: CHAUNCEY GEMENT OF PATIENT CARE PER NURSING PROTOCOL Performed By: #### L 501.080 ####[facility] [address] [place], [address] FINGERSTICK GLU 221 mg/dL High 74-106 [facility] Comment on above: Result Comment: CHAUNCEY GEMENT OF PATIENT CARE PER NURSING PROTOCOL Performed By: #### L 501.080 ####[facility] [address] [place], [address] FINGERSTICK GLU 293 mg/dL High 74-106 [facility] Comment on above: Result Comment: CHAUNCEY GEMENT OF PATIENT CARE PER NURSING PROTOCOL Performed By: #### L 501.080 ####[facility] [address] [place], [address] FINGERSTICK GLU 119 mg/dL High 74-106 [facility] Comment on above: Result Comment: CHAUNCEY GEMENT OF PATIENT CARE PER NURSING PROTOCOL Performed By: #### L 501.080 ####[facility] [address] [place], [address] Magnesiumon 05-26-2025 Magnesium [Mass/Vol] 1.3 mg/dL Low 1.5-2.2 [facility] Comment on above: Performed By: #### L 501.5200 ####[facility] [address] [place], [address] Alcohol, Blood (Medical)-Ser umon 05-25-2025 SERUM ETOH 312.0 mg/dL Invalid Interpretation Code <=10.0 [facility] Comment on above: Result Comment: Crit ical Result(s) Called at 0100: by: NBURNS TO LSPARR??Results read back by same.This test is for medical purposes only. The legaldefinition of intoxication varies according to local law. Performed By: #### L 100.0100, L501.9100, L700.6800, L500.4050, L505.5000 ####[facility] [address] [place], [address] Bedside Glucoseon 05-25-2025 FINGERSTICK GLU 182 mg/dL High 74-106 [facility] Comment on above: Result Comment: CHAUNCEY GEMENT OF PATIENT CARE PER NURSING PROTOCOL Performed By: #### L 501.080 ####[facility] [address] [place], [address] FINGERSTICK GLU 187 mg/dL High 74-106 [facility] Comment on above: Result Comment: CHAUNCEY GEMENT OF PATIENT CARE PER NURSING PROTOCOL Performed By: #### L 501.080 ####[facility] [address] [place], [address] FINGERSTICK GLU 220 mg/dL High 74-106 [facility] Comment on above: Result Comment: CHAUNCEY GEMENT OF PATIENT CARE PER NURSING PROTOCOL Performed By: #### L 501.080 ####[facility] [address] [place], [address] FINGERSTICK GLU 179 mg/dL High 74-106 [facility] Comment on above: Result Comment: CHAUNCEY GEMENT OF PATIENT CARE PER NURSING PROTOCOL Performed By: #### L 501.080 ####[facility] [address] [place], [address] CBC W/Diff, Automatedon 06-2 Absolute Lymph 3.57 X10 3/uL Normal 0.83-4.51 [facility] Comment on above: Performed By: #### L 100.0100, L501.9100, L700.6800, L500.4050, L505.5000 ####[facility] [address] [place], [address] Absolute Neut 4.3 X10 3/uL Normal 2.0-7.7 [facility] Comment on above: Performed By: #### L 100.0100, L501.9100, L700.6800, L500.4050, L505.5000 ####[facility] [address] [place], [address] Basophils/100 WBC (Bld) 0.5 % Normal 0-1 [facility] Comment on above: Performed By: #### L 100.0100, L501.9100, L700.6800, L500.4050, L505.5000 ####[facility] [address] [place], [address] Eosinophils/100 WBC (Bld) 0.7 % Normal 0-5 [facility] Comment on above: Performed By: #### L 100.0100, L501.9100, L700.6800, L500.4050, L505.5000 ####[facility] [address] [place], [address] Erythrocyte distribution width (RBC) [Ratio] 13.1 % Normal 11.6-14.6 [facility] Comment on above: Performed By: #### L 100.0100, L501.9100, L700.6800, L500.4050, L505.5000 ####[facility] [address] [place], [address] Hematocrit (Bld) [Volume fraction] 38.3 % Normal 37-47 [facility] Comment on above: Performed By: #### L 100.0100, L501.9100, L700.6800, L500.4050, L505.5000 ####[facility] [address] [place], [address] Hemoglobin (Bld) [Mass/Vol] 13.2 g/dL Normal 12.0-15.0 [facility] Comment on above: Performed By: #### L 100.0100, L501.9100, L700.6800, L500.4050, L505.5000 ####[facility] [address] [place], [address] IG% 0.100 Normal 0.0-0.9 [facility] Comment on above: Result Comment: IG% - Immature Granulocytes (promyelocytes, myelocytes andmetamyelocytes) > 1% indicates that a LEFT SHIFT is Present. Performed By: #### L 100.0100, L501.9100, L700.6800, L500.4050, L505.5000 ####[facility] [address] [place], [address] Lymphocytes/100 WBC (Bld) 41.1 % High 19-41 [facility] Comment on above: Performed By: #### L 100.0100, L501.9100, L700.6800, L500.4050, L505.5000 ####[facility] [address] [place], [address] MCH (RBC) [Entitic mass] 34.6 pg High 27.0-32.0 [facility] Comment on above: Performed By: #### L 100.0100, L501.9100, L700.6800, L500.4050, L505.5000 ####[facility] [address] [place], [address] MCHC (RBC) [Mass/Vol] 34.5 g/dL Normal 32-36 [facility] Comment on above: Performed By: #### L 100.0100, L501.9100, L700.6800, L500.4050, L505.5000 ####[facility] [address] [place], [address] MCV (RBC) [Entitic vol] 100.3 fL High 81-99 [facility] Comment on above: Performed By: #### L 100.0100, L501.9100, L700.6800, L500.4050, L505.5000 ####[facility] [address] [place], [address] Monocytes/100 WBC (Bld) 7.7 % Normal 0-10 [facility] Comment on above: Performed By: #### L 100.0100, L501.9100, L700.6800, L500.4050, L505.5000 ####[facility] [address] [place], [address] Neutrophils/100 WBC (Bld) 49.9 % Normal 47-70 [facility] Comment on above: Performed By: #### L 100.0100, L501.9100, L700.6800, L500.4050, L505.5000 ####[facility] [address] [place], [address] Nucleated RBC (Bld) [#/Vol] 0 10*3/uL Normal 0-5 [facility] Comment on above: Performed By: #### L 100.0100, L501.9100, L700.6800, L500.4050, L505.5000 ####[facility] [address] [place], [address] Platelet mean volume (Bld) [Entitic vol] 10.0 fL Normal 6.2-12.0 [facility] Comment on above: Performed By: #### L 100.0100, L501.9100, L700.6800, L500.4050, L505.5000 ####[facility] [address] [place], [address] Platelets (Bld) [#/Vol] 187 10*3/uL Normal 150-450 [facility] Comment on above: Performed By: #### L 100.0100, L501.9100, L700.6800, L500.4050, L505.5000 ####[facility] [address] [place], [address] RBC (Bld) [#/Vol] 3.82 10*6/uL Low 4.2-5.4 [facility] Comment on above: Performed By: #### L 100.0100, L501.9100, L700.6800, L500.4050, L505.5000 ####[facility] [address] [place], [address] RDW SD 47.9 fl High 35.1-43.9 [facility] Comment on above: Performed By: #### L 100.0100, L501.9100, L700.6800, L500.4050, L505.5000 ####[facility] [address] [place], [address] WBC (Bld) [#/Vol] 8.7 10*3/uL Normal 4.4-11.0 [facility] Comment on above: Performed By: #### L 100.0100, L501.9100, L700.6800, L500.4050, L505.5000 ####[facility] [address] [place], [address] Comprehensive Metabolic Prof ilon 05-25-2025 Albumin [Mass/Vol] 4.1 g/dL Normal 3.5-5.0 [facility] Comment on above: Performed By: #### L 100.0100, L501.9100, L700.6800, L500.4050, L505.5000 ####[facility] [address] [place], [address] Albumin/Globulin [Mass ratio] 1.2 {ratio} Normal 0.9-2.4 [facility] Comment on above: Performed By: #### L 100.0100, L501.9100, L700.6800, L500.4050, L505.5000 ####[facility] [address] [place], [address] ALK PHOS 115 U/L High 35-104 [facility] Comment on above: Performed By: #### L 100.0100, L501.9100, L700.6800, L500.4050, L505.5000 ####[facility] [address] [place], [address] ALT [Catalytic activity/Vol] 29 U/L Normal <=34 [facility] Comment on above: Performed By: #### L 100.0100, L501.9100, L700.6800, L500.4050, L505.5000 ####[facility] [address] [place], [address] AST [Catalytic activity/Vol] 45 U/L High <=31 [facility] Comment on above: Result Comment: Hemo lysis present, Results??could be affected.?? Performed By: #### L 100.0100, L501.9100, L700.6800, L500.4050, L505.5000 ####[facility] [address] [place], [address] Bilirubin [Mass/Vol] 0.37 mg/dL Normal 0.00-1.30 [facility] Comment on above: Performed By: #### L 100.0100, L501.9100, L700.6800, L500.4050, L505.5000 ####[facility] [address] [place], [address] BUN/CRE 11.4 RATIO Normal 10-20 [facility] Comment on above: Performed By: #### L 100.0100, L501.9100, L700.6800, L500.4050, L505.5000 ####[facility] [address] [place], [address] Calcium [Mass/Vol] 8.7 mg/dL Normal 7.6-11.0 [facility] Comment on above: Performed By: #### L 100.0100, L501.9100, L700.6800, L500.4050, L505.5000 ####[facility] [address] [place], [address] Chloride [Moles/Vol] 98 mmol/L Normal 98-108 [facility] Comment on above: Performed By: #### L 100.0100, L501.9100, L700.6800, L500.4050, L505.5000 ####[facility] [address] [place], [address] CO2 [Moles/Vol] 20.9 mmol/L Low 21.0-32.0 [facility] Comment on above: Performed By: #### L 100.0100, L501.9100, L700.6800, L500.4050, L505.5000 ####[facility] [address] [place], [address] Creatinine [Mass/Vol] 0.72 mg/dL Normal 0.70-1.20 [facility] Comment on above: Performed By: #### L 100.0100, L501.9100, L700.6800, L500.4050, L505.5000 ####[facility] [address] [place], [address] ECRCL 82.51 ml/min Normal 50-250 [facility] Comment on above: Performed By: #### L 100.0100, L501.9100, L700.6800, L500.4050, L505.5000 ####[facility] [address] [place], [address] GAP 21 High 5-15 [facility] Comment on above: Performed By: #### L 100.0100, L501.9100, L700.6800, L500.4050, L505.5000 ####[facility] [address] [place], [address] GFR/1.73 sq M.predicted among non-blacks MDRD (S/P/Bld) [Vol rate/Area] 104 mL/min/{1.73_m2} Normal >60 [facility] Comment on above: Result Comment: mL/m in/1.73m2 CKD-EPI Creatinine Equation (2020) Performed By: #### L 100.0100, L501.9100, L700.6800, L500.4050, L505.5000 ####[facility] [address] [place], [address] Globulin (S) [Mass/Vol] 3.4 g/dL Normal 2.2-4.2 [facility] Comment on above: Performed By: #### L 100.0100, L501.9100, L700.6800, L500.4050, L505.5000 ####[facility] [address] [place], [address] Glucose [Mass/Vol] 84 mg/dL Normal 70-99 [facility] Comment on above: Performed By: #### L 100.0100, L501.9100, L700.6800, L500.4050, L505.5000 ####[facility] [address] [place], [address] Potassium [Moles/Vol] 4.1 mmol/L Normal 3.3-5.1 [facility] Comment on above: Result Comment: Hemo lysis present, Results??could be affected.?? Performed By: #### L 100.0100, L501.9100, L700.6800, L500.4050, L505.5000 ####[facility] [address] [place], [address] Sodium [Moles/Vol] 140 mmol/L Normal 133-145 [facility] Comment on above: Performed By: #### L 100.0100, L501.9100, L700.6800, L500.4050, L505.5000 ####[facility] [address] [place], [address] T PROT 7.5 g/dL Normal 5.9-8.4 [facility] Comment on above: Performed By: #### L 100.0100, L501.9100, L700.6800, L500.4050, L505.5000 ####[facility] [address] [place], [address] Urea nitrogen [Mass/Vol] 8 mg/dL Normal 4-19 [facility] Comment on above: Performed By: #### L 100.0100, L501.9100, L700.6800, L500.4050, L505.5000 ####[facility] [address] [place], [address] Emergency Department Summary on 05-25-2025 Emergency Department Summary Normal [facility] H AND P Exam - Hospitaliston 05-25-2025 H&P Exam - Hospitalist Normal [facility] Magnesiumon 05-25-2025 Magnesium [Mass/Vol] 1.6 mg/dL Normal 1.5-2.2 [facility] Comment on above: Performed By: #### L 501.5200 ####[facility] [address] [place], [address] Magnesium [Mass/Vol] 1.1 mg/dL Low 1.5-2.2 [facility] Comment on above: Order Comment: Comme nts: May add to ED labsComments: may add to ED labs Performed By: #### L 501.2300, L501.5200 ####[facility] [address] [place], [address] Magnesium measurement (mass/ volume)Ordered By: Myra Null on 05-25-2025 Magnesium (Unsp spec) [Mass/Vol] 1.1 mg/dL Low 1.5-2.2 [facility] Phosphoruson 05-25-2025 Phosphate [Mass/Vol] 4.5 mg/dL Normal 2.7-4.5 [facility] Comment on above: Order Comment: Comme nts: May add to ED labsComments: may add to ED labs Performed By: #### L 501.2300, L501.5200 ####[facility] [address] [place], [address] ,Serum,hCG Quali.on 05-25-2025 HCG, SERUM QUAL Negative Normal [facility] Comment on above: Performed By: #### L 100.0100, L501.9100, L700.6800, L500.4050, L505.5000 ####[facility] [address] [place], [address] Urinalysis, Completeon 05-25 EPI,SQUAMOUS 5-10 SEEN Normal 5-10 [facility] Comment on above: Order Comment: CLEAN CATCH Performed By: #### L 400.0001 ####[facility] [address] [place], [address] RBC 0-5 SEEN Normal 0-5 [facility] Comment on above: Order Comment: CLEAN CATCH Performed By: #### L 400.0001 ####[facility] [address] [place], [address] WBC 0-5 SEEN Normal 0-5 [facility] Comment on above: Order Comment: CLEAN CATCH Performed By: #### L 400.0001 ####[facility] [address] [facility] [place] [address] BACTERIA 0 SEEN Normal None Seen [facility] Comment on above: Order Comment: CLEAN CATCH Performed By: #### L 400.0001 ####[facility] [address] [facility] [place] [address] Mucus Ql (Urine sed) 0 SEEN Normal [facility] Comment on above: Order Comment: CLEAN CATCH Performed By: #### L 400.0001 ####[facility] [address] [place] [address] Urine Drug Screen (VISTA)on 05-25-2025 AMPHETAMINES Negative Normal <1000 ng/mL [facility] Comment on above: Performed By: #### L 100.0100, L501.9100, L700.6800, L500.4050, L505.5000 ####[facility] [address] [place] [address] BARBITIURATES Positive Normal < 200 ng/mL [facility] Comment on above: Result Comment: If c onfirmation testing is needed, a separate order will berequired to send out testing to the reference laboratory. Performed By: #### L 100.0100, L501.9100, L700.6800, L500.4050, L505.5000 ####[facility] [address] [facility] [place] [address] BENZODIAZIPINE Positive Normal < 200 ng/mL [facility] Comment on above: Result Comment: If c onfirmation testing is needed, a separate order will berequired to send out testing to the reference laboratory. Performed By: #### L 100.0100, L501.9100, L700.6800, L500.4050, L505.5000 ####[facility] [address] [place] [address] BUP Ur Drug Scr Negative Normal < 200 ng/mL [facility] Comment on above: Performed By: #### L 100.0100, L501.9100, L700.6800, L500.4050, L505.5000 ####[facility] [address] [place] [address] COCAINE Negative Normal < 300 ng/mL [facility] Comment on above: Performed By: #### L 100.0100, L501.9100, L700.6800, L500.4050, L505.5000 ####[facility] [address] [place] [address] Fentanyl Negative Normal [facility] Comment on above: Performed By: #### L 100.0100, L501.9100, L700.6800, L500.4050, L505.5000 ####[facility] [address] [place] [address] METHADONE Negative Normal < 300 ng/mL [facility] Comment on above: Performed By: #### L 100.0100, L501.9100, L700.6800, L500.4050, L505.5000 ####[facility] [address] [place] [address] OPIATES Negative Normal < 300 ng/mL [facility] Comment on above: Performed By: #### L 100.0100, L501.9100, L700.6800, L500.4050, L505.5000 ####[facility] [address] [place] [address] OXYCODONE Negative Normal < 100 ng/mL [facility] Comment on above: Performed By: #### L 100.0100, L501.9100, L700.6800, L500.4050, L505.5000 ####[facility] [address] [place] [id number] PCP Negative Normal < 25 ng/mL [facility] Comment on above: Performed By: #### L 100.0100, L501.9100, L700.6800, L500.4050, L505.5000 ####[facility] [address] [place], [address] THC Negative Normal < 50 ng/mL [facility] Comment on above: Performed By: #### L 100.0100, L501.9100, L700.6800, L500.4050, L505.5000 ####[facility] [address] [place], [address] Absolute lymphocyte countOrd ered By: Andrew Maurice on 05-24-2025 Lymphocytes Auto (Unsp spec) [#/Vol] 3.57 10*3/uL 0.83-4.51 [facility] Absolute neutrophil countOrd ered By: Andrew Maurice on 05-24-2025 Neutrophils (Bld) [#/Vol] 4.3 10*3/uL 2.0-7.7 [facility] Amphetamine detection with 1 000 ng/mL as cutoffOrdered By: Andrew Maurice on 05-24-2025 Amphetamines Screen method >1000 ng/mL Ql (U) Negative <1000 ng/mL [facility] Amphetamines Screen method >1000 ng/mL Ql (U) Positive < 200 ng/mL [facility] Comment on above: If confirmation test ing is needed, a separate order will be required to send out testing to the reference laboratory. Anion gap in Serum or Plasma Ordered By: Andrew Maurice on 05-24-2025 Anion gap [Moles/Vol] 21 mmol/L High 5-15 [facility] Automated lymphocyte count a s percentage of total leukocytesOrdered By: Andrew Maurice on 05-24-2025 Lymphocytes/100 WBC Auto (Unsp spec) 41.1 % High 19-41 [facility] BUN/creatinine ratioOrdered By: Andrew Maurice on 05-24-2025 Urea nitrogen/Creatinine [Mass ratio] 11.4 mg/mg 10-20 [facility] Basophil percentageOrdered B y: Andrew Maurice on 05-24-2025 Basophils/100 WBC (Bld) 0.5 % 0-1 [facility] Bilirubin Test strip Ql (U)O rdered By: Andrew Maurice on 05-24-2025 Bilirubin Ql (U) Negative Negative [facility] Bilirubin, totalOrdered By: Andrew Maurice on 05-24-2025 Bilirubin [Mass/Vol] 0.37 mg/dL 0.00-1.30 [facility] Carbon dioxide, total [Moles /volume] in Central venous bloodOrdered By: Andrew Maurice on 05-24-2025 CO2 [Moles/Vol] 20.9 mmol/L Low 21.0-32.0 [facility] Chloride assayOrdered By: Yusef Maurice on 05-24-2025 Chloride [Moles/Vol] 98 mmol/L 98-108 [facility] Eosinophil percentageOrdered By: Andrew Maurice on 05-24-2025 Eosinophils/100 WBC (Bld) 0.7 % 0-5 [facility] Erythrocyte distribution wid th ratioOrdered By: Andrew Maurice on 05-24-2025 Erythrocyte distribution width (RBC) [Ratio] 13.1 % 11.6-14.6 [facility] Erythrocyte distribution wid th standard deviationOrdered By: Andrew Small on 05-24-2025 Erythrocyte distribution width (RBC) [Ratio] 47.9 fl High 35.1-43.9 [facility] Glomerular filtration rate ( GFR) estimation/1.73 sq m using serum, plasma, or whole bOrdered By: Andrew Maurice on 05-24-2025 GFR/1.73 sq M.predicted among non-blacks MDRD (S/P/Bld) [Vol rate/Area] 104 mL/min/{1.73_m2} >60 [facility] Comment on above: mL/min/1.73m2 CKD-EP I Creatinine Equation (2020) Hematocrit Auto (Bld) [Volum e fraction]Ordered By: Andrew Maurice on 05-24-2025 Hematocrit (Bld) [Volume fraction] 38.3 % 37-47 [facility] Hemoglobin measurementOrdere d By: Andrew Maurice on 05-24-2025 Hemoglobin (Bld) [Mass/Vol] 13.2 g/dL 12.0-15.0 [facility] Immature granulocytes/100 WB C Auto (Bld)Ordered By: Andrew Maurice on 05-24-2025 Immature granulocytes/100 WBC (Bld) 0.100 % 0.0-0.9 [facility] Comment on above: IG% - Immature Granu locytes (promyelocytes, myelocytes and metamyelocytes) > 1% indicates that a LEFT SHIFT is Present. Ketones Test strip Ql (U)Ord ered By: Andrew Maurice on 05-24-2025 Ketones Ql (U) 5 mg/dl High Negative [facility] Laboratory - Chemistry and C hemistry - challengeOrdered By: Andrewmark Maurice on 05-24-2025 AST [Catalytic activity/Vol] 45 U/L High <32 [facility] Comment on above: Hemolysis present, R esults could be affected. MCV (mean corpuscular volume ) determinationOrdered By: Andrew Maurice on 05-24-2025 MCV (RBC) [Entitic vol] 100.3 fL High 81-99 [facility] Mean corpuscular hemoglobin (MCH) determinationOrdered By: Andrew Maurice on 05-24-2025 MCH (RBC) [Entitic mass] 34.6 pg High 27.0-32.0 [facility] Mean corpuscular hemoglobin concentration (MCHC) determinationOrdered By: Andrew Maurice on 05-24-2025 MCHC (RBC) [Mass/Vol] 34.5 g/dL 32-36 [facility] Mean platelet volume determi nationOrdered By: Andrew Maurice on 05-24-2025 Platelet mean volume (Bld) [Entitic vol] 10.0 fL 6.2-12.0 [facility] Microscopic analysis of urin e for red blood cells (RBC)Ordered By: Andrew Maurice on 05-24-2025 Microscopic analysis of urine for red blood cells (RBC) 0-5 SEEN /hpf 0-5 [facility] Monocyte percentageOrdered B y: Andrew Maurice on 05-24-2025 Monocytes/100 WBC (Bld) 7.7 % 0-10 [facility] Mucus LM Ql (Urine sed)Order ed By: Andrew Maurice on 05-24-2025 Mucus Ql (Urine sed) 0 SEEN /hpf [facility] Neutrophil percentageOrdered By: Andrew Maurice on 05-24-2025 Neutrophils/100 WBC (Bld) 49.9 % 47-70 [facility] Nitrite Test strip Ql (U)Ord ered By: Andrew Mauirce on 05-24-2025 Nitrite Ql (U) Negative Negative [facility] No Panel InformationOrdered By: Andrew Maurice on 05-24-2025 Urine Buprenorphine Qualitative Negative < 200 ng/mL [facility] Urine Oxycodone Screen Negative < 100 ng/mL [facility] 45 U/L High <32 [facility] Negative < 200 ng/mL [facility] Nucleated red blood cell per centageOrdered By: Andrew Maurice on 05-24-2025 Nucleated RBC/100 WBC (Bld) [Ratio] 0 % 0-5 [facility] Platelet countOrdered By: Yusef Maurice on 05-24-2025 Platelets (Bld) [#/Vol] 187 10*3/uL 150-450 [facility] Potassium measurement (mass/ volume)Ordered By: Andrew Maurice on 05-24-2025 Potassium (Unsp spec) [Mass/Vol] 4.1 mmol/L 3.3-5.1 [facility] Comment on above: Hemolysis present, R esults could be affected. Protein Test strip Ql (U)Ord ered By: Andrew Maurice on 05-24-2025 Protein Ql (U) 30 mg/dl High Negative [facility] Quantitative urine opiates m easurementOrdered By: Andrew Maurice on 05-24-2025 Opiates Ql (U) Negative < 300 ng/mL [facility] RBC Auto (Bld) [#/Vol]Ordere d By: Andrew Maurice on 05-24-2025 RBC (Bld) [#/Vol] 3.82 10*6/uL Low 4.2-5.4 [facility] Screening urine fentanyl alexis surementOrdered By: Andrew Maurice on 05-24-2025 fentaNYL Screen Ql (U) Negative [facility] Serum beta-hCG test, qualita tiveOrdered By: Andrew Maurice on 05-24-2025 Beta HCG ( test) Ql Negative [facility] Serum creatinine measurement (mass/volume)Ordered By: Andrew Maurice on 05-24-2025 Creatinine [Mass/Vol] 0.72 mg/dL 0.70-1.20 [facility] Serum globulin measurementOr dered By: Andrew Maurice on 05-24-2025 Globulin (S) [Mass/Vol] 3.4 g/dL 2.2-4.2 [facility] Serum glucose measurement (m ass/volume)Ordered By: Andrew Maurice on 05-24-2025 Glucose [Mass/Vol] 84 mg/dL 70-99 [facility] Serum or plasma alanine wilkerson otransferase (ALT) measurementOrdered By: Andrew Maurice on 05-24-2025 ALT [Catalytic activity/Vol] 29 U/L <35 [facility] Serum or plasma albumin alphonso urement (mass/volume)Ordered By: Andrew Small on 05-24-2025 Albumin [Mass/Vol] 4.1 g/dL 3.5-5.0 [facility] Serum or plasma albumin/glob ulin mass ratioOrdered By: Andrew Maurice on 05-24-2025 Albumin/Globulin [Mass ratio] 1.2 {ratio} 0.9-2.4 [facility] Serum or plasma alkaline trinity sphatase measurementOrdered By: Andrew Maurice on 05-24-2025 ALP [Catalytic activity/Vol] 115 U/L High 35-104 [facility] Serum or plasma calcium alphonso urement (mass/volume)Ordered By: Andrew Small on 05-24-2025 Calcium [Mass/Vol] 8.7 mg/dL 7.6-11.0 [facility] Serum or plasma ethanol alphonso urement (mass/volume)Ordered By: Andrew Small on 05-24-2025 Ethanol [Mass/Vol] 312.0 mg/dL Critically high <10.1 [facility] Comment on above: Critical Result(s) C alled at 0100: by: OTTO TO LSPARR Results read back by same.This test is for medical purposes only. The legal definition of intoxication varies according to local law. Serum or plasma urea nitroge n measurement (mass/volume)Ordered By: Andrew Maurice on 05-24-2025 Urea nitrogen [Mass/Vol] 8 mg/dL 4-19 [facility] Sodium levelOrdered By: Alfie Maurice on 05-24-2025 Sodium [Moles/Vol] 140 mmol/L 133-145 [facility] Squamous epithelial cells de tection in urine sediment by light microscopyOrdered By: Andrew Maurice on 05-24-2025 Epithelial cells.squamous LM Ql (Urine sed) 5-10 SEEN /hpf 5-10 [facility] Total proteinOrdered By: Last Maurice on 05-24-2025 Protein [Mass/Vol] 7.5 g/dL 5.9-8.4 [facility] Urine benzodiazepine levelOr dered By: Andrew Maurice on 05-24-2025 Benzodiazepines Ql (U) Positive < 200 ng/mL [facility] Comment on above: If confirmation test ing is needed, a separate order will be required to send out testing to the reference laboratory. Urine clarityOrdered By: Last Maurice on 05-24-2025 Clarity (U) Clear Clear [facility] Urine cocaine levelOrdered B y: Andrew Maurice on 05-24-2025 Cocaine Ql (U) Negative < 300 ng/mL [facility] Urine color determinationOrd ered By: Andrew Maurice on 05-24-2025 Color (U) Yellow Yellow [facility] Urine jcrcj-0-blavwsakqvrmoh abinol (THC) measurementOrdered By: Andrew Small on 05-24-2025 Cannabinoids Screen Ql (U) Negative < 50 ng/mL [facility] Urine glucose detectionOrder ed By: Andrew Maurice on 05-24-2025 Glucose Ql (U) Normal mg/dl Normal [facility] Urine leukocyte esterase det ection by dipstickOrdered By: Andrew Maurice on 05-24-2025 Leukocyte esterase Test strip Ql (U) 25 /ul High Negative [facility] Urine pHOrdered By: Andrew Barrera on 05-24-2025 pH (U) 6.0 [pH] 5.0 - 8.0 [facility] Urine phencyclidine (PCP) de tectionOrdered By: Andrew Maurice on 05-24-2025 Phencyclidine Ql (U) Negative < 25 ng/mL [facility] Urine sediment bacteria coun t by microscopy (number/high power field)Ordered By: Andrew Maurice on 05-24-2025 Bacteria LM.HPF (Urine sed) [#/Area] 0 /[HPF] None Seen [facility] Urine specific gravity measu rementOrdered By: Andrew Maurice on 05-24-2025 Specific gravity (U) [Rel density] 1.015 1.002-1.030 [facility] Urine urobilinogen measureme ntOrdered By: Andrew Maurice on 05-24-2025 Urobilinogen Ql (U) Normal mg/dl Normal [facility] White blood cell (WBC) count Ordered By: Andrew Maurice on 05-24-2025 WBC (Bld) [#/Vol] 8.7 10*3/uL 4.4-11.0 [facility] White blood cell countOrdere d By: Andrew Maurice on 05-24-2025 White blood cell count 0-5 SEEN /hpf 0-5 [facility] Bedside Glucoseon 05-06-2025 FINGERSTICK GLU 358 mg/dL High 74-106 [facility] Comment on above: Result Comment: CHAUN[employer] GEMENT OF PATIENT CARE PER NURSING PROTOCOL Performed By: #### L 501.080 ####[facility] [address] [facility] [place] [address] FINGERSTICK GLU 219 mg/dL High 74-106 [facility] Comment on above: Result Comment: CHAUNCEY GEMENT OF PATIENT CARE PER NURSING PROTOCOL Performed By: #### L 501.080 ####[facility] [address] [facility] [place] [address] Discharge Instructionon 06- Discharge Instruction Normal [facility] deOrdered By: Mao Becker on 05-06-2025 Glucose [Mass/Vol] 358 mg/dL High 74-106 [facility] Comment on above: MANAGEMENT OF PATIEN T CARE PER NURSING PROTOCOL Bedside Glucoseon 05-05-2025 FINGERSTICK GLU 331 mg/dL High 74-106 [facility] Comment on above: Result Comment: CHAUNCEY GEMENT OF PATIENT CARE PER NURSING PROTOCOL Performed By: #### L 501.080 ####[facility] [address] [facility] [place] [address] FINGERSTICK GLU 257 mg/dL High 74-106 [facility] Comment on above: Result Comment: CHAUNCEY GEMENT OF PATIENT CARE PER NURSING PROTOCOL Performed By: #### L 501.080 ####[facility] [address] [place], [address] FINGERSTICK GLU 346 mg/dL High 74-106 [facility] Comment on above: Result Comment: CHAUNCEY GEMENT OF PATIENT CARE PER NURSING PROTOCOL Performed By: #### L 501.080 ####[facility] [address] [place], [address] FINGERSTICK GLU 221 mg/dL High 74-106 [facility] Comment on above: Result Comment: CHAUNCEY GEMENT OF PATIENT CARE PER NURSING PROTOCOL Performed By: #### L 501.080 ####[facility] [address] [place], [address] Absolute lymphocyte countOrd ered By: Canelo Myers on 05-04-2025 Lymphocytes Auto (Unsp spec) [#/Vol] 1.36 10*3/uL 0.83-4.51 [facility] Absolute neutrophil countOrd ered By: Canelo Myers on 05-04-2025 Neutrophils (Bld) [#/Vol] 3.4 10*3/uL 2.0-7.7 [facility] Anion gap in Serum or Plasma Ordered By: Canelo Myers on 05-04-2025 Anion gap [Moles/Vol] 11 mmol/L 5-15 [facility] Automated lymphocyte count a s percentage of total leukocytesOrdered By: Canelo Myers on 05-04-2025 Lymphocytes/100 WBC Auto (Unsp spec) 23.0 % 19-41 [facility] BUN/creatinine ratioOrdered By: Canelo Myers on 05-04-2025 Urea nitrogen/Creatinine [Mass ratio] 9.6 mg/mg Low 10-20 [facility] Basophil percentageOrdered B y: Canelo Myers on 05-04-2025 Basophils/100 WBC (Bld) 0.5 % 0-1 [facility] Bedside Glucoseon 05-04-2025 FINGERSTICK GLU 299 mg/dL High 74-106 [facility] Comment on above: Result Comment: CHAUNCEY GEMENT OF PATIENT CARE PER NURSING PROTOCOL Performed By: #### L 501.080 ####[facility] [address] [place], [address] FINGERSTICK GLU 299 mg/dL High 74-106 [facility] Comment on above: Result Comment: CHAUNCEY GEMENT OF PATIENT CARE PER NURSING PROTOCOL Performed By: #### L 501.080 ####[facility] [address] [place], [address] FINGERSTICK GLU 245 mg/dL High 74-106 [facility] Comment on above: Result Comment: CHAUNCEY GEMENT OF PATIENT CARE PER NURSING PROTOCOL Performed By: #### L 501.080 ####[facility] [address] [place], [address] FINGERSTICK GLU 170 mg/dL High 74-106 [facility] Comment on above: Result Comment: CHAUNCEY GEMENT OF PATIENT CARE PER NURSING PROTOCOL Performed By: #### L 501.080 ####[facility] [address] [place], [address] Bilirubin, totalOrdered By: Canelo Myers on 05-04-2025 Bilirubin [Mass/Vol] 0.35 mg/dL 0.00-1.30 [facility] CBC W/Diff, Automatedon Absolute Lymph 1.36 X10 3/uL Normal 0.83-4.51 [facility] Comment on above: Performed By: #### L 100.0100, L500.4050 ####[facility] [address] [place], [address] Absolute Neut 3.4 X10 3/uL Normal 2.0-7.7 [facility] Comment on above: Performed By: #### L 100.0100, L500.4050 ####[facility] [address] [place], [address] Basophils/100 WBC (Bld) 0.5 % Normal 0-1 [facility] Comment on above: Performed By: #### L 100.0100, L500.4050 ####[facility] [address] [place], [address] Eosinophils/100 WBC (Bld) 2.7 % Normal 0-5 [facility] Comment on above: Performed By: #### L 100.0100, L500.4050 ####[facility] [address] [place], [address] Erythrocyte distribution width (RBC) [Ratio] 12.8 % Normal 11.6-14.6 [facility] Comment on above: Performed By: #### L 100.0100, L500.4050 ####[facility] [address] [place], [address] Hematocrit (Bld) [Volume fraction] 30.6 % Low 37-47 [facility] Comment on above: Performed By: #### L 100.0100, L500.4050 ####[facility] [address] [place], [address] Hemoglobin (Bld) [Mass/Vol] 10.3 g/dL Low 12.0-15.0 [facility] Comment on above: Performed By: #### L 100.0100, L500.4050 ####[facility] [address] [place], [address] IG% 0.300 Normal 0.0-0.9 [facility] Comment on above: Result Comment: IG% - Immature Granulocytes (promyelocytes, myelocytes andmetamyelocytes) > 1% indicates that a LEFT SHIFT is Present. Performed By: #### L 100.0100, L500.4050 ####[facility] [address] [place], [address] Lymphocytes/100 WBC (Bld) 23.0 % Normal 19-41 [facility] Comment on above: Performed By: #### L 100.0100, L500.4050 ####[facility] [address] [place], [address] MCH (RBC) [Entitic mass] 35.8 pg High 27.0-32.0 [facility] Comment on above: Performed By: #### L 100.0100, L500.4050 ####[facility] [address] [place], [address] MCHC (RBC) [Mass/Vol] 33.7 g/dL Normal 32-36 [facility] Comment on above: Performed By: #### L 100.0100, L500.4050 ####[facility] [address] [place], [address] MCV (RBC) [Entitic vol] 106.3 fL High 81-99 [facility] Comment on above: Performed By: #### L 100.0100, L500.4050 ####[facility] [address] [place], [address] Monocytes/100 WBC (Bld) 15.4 % High 0-10 [facility] Comment on above: Performed By: #### L 100.0100, L500.4050 ####[facility] [address] [place], [address] Neutrophils/100 WBC (Bld) 58.1 % Normal 47-70 [facility] Comment on above: Performed By: #### L 100.0100, L500.4050 ####[facility] [address] [place], [address] Nucleated RBC (Bld) [#/Vol] 0 10*3/uL Normal 0-5 [facility] Comment on above: Performed By: #### L 100.0100, L500.4050 ####[facility] [address] [place], [address] Platelet mean volume (Bld) [Entitic vol] 10.3 fL Normal 6.2-12.0 [facility] Comment on above: Performed By: #### L 100.0100, L500.4050 ####[facility] [address] [place], [address] Platelets (Bld) [#/Vol] 376 10*3/uL Normal 150-450 [facility] Comment on above: Performed By: #### L 100.0100, L500.4050 ####[facility] [address] [place], [address] RBC (Bld) [#/Vol] 2.88 10*6/uL Low 4.2-5.4 [facility] Comment on above: Performed By: #### L 100.0100, L500.4050 ####[facility] [address] [place], [address] RDW SD 49.9 fl High 35.1-43.9 [facility] Comment on above: Performed By: #### L 100.0100, L500.4050 ####[facility] [address] [place], [address] WBC (Bld) [#/Vol] 5.9 10*3/uL Normal 4.4-11.0 [facility] Comment on above: Performed By: #### L 100.0100, L500.4050 ####[facility] [address] [place], [address] Carbon dioxide, total [Moles /volume] in Central venous bloodOrdered By: Canelo Myers on 05-04-2025 CO2 [Moles/Vol] 27.3 mmol/L 21.0-32.0 [facility] Chloride assayOrdered By: Henrry Myers on 05-04-2025 Chloride [Moles/Vol] 96 mmol/L Low 98-108 [facility] Comprehensive Metabolic Prof ilon 05-04-2025 Albumin [Mass/Vol] 3.4 g/dL Low 3.5-5.0 [facility] Comment on above: Performed By: #### L 100.0100, L500.4050 ####[facility] [address] [place], [address] Albumin/Globulin [Mass ratio] 1.1 {ratio} Normal 0.9-2.4 [facility] Comment on above: Performed By: #### L 100.0100, L500.4050 ####[facility] [address] [place], [address] ALK PHOS 441 U/L High 35-104 [facility] Comment on above: Performed By: #### L 100.0100, L500.4050 ####[facility] [address] [place], [address] ALT [Catalytic activity/Vol] 45 U/L High <=34 [facility] Comment on above: Performed By: #### L 100.0100, L500.4050 ####[facility] [address] [place], [address] AST [Catalytic activity/Vol] 51 U/L High <=31 [facility] Comment on above: Performed By: #### L 100.0100, L500.4050 ####[facility] [address] [place], [address] Bilirubin [Mass/Vol] 0.35 mg/dL Normal 0.00-1.30 [facility] Comment on above: Performed By: #### L 100.0100, L500.4050 ####[facility] [address] [place], [address] BUN/CRE 9.6 RATIO Low 10-20 [facility] Comment on above: Performed By: #### L 100.0100, L500.4050 ####[facility] [address] [place], [address] Calcium [Mass/Vol] 9.3 mg/dL Normal 7.6-11.0 [facility] Comment on above: Performed By: #### L 100.0100, L500.4050 ####[facility] [address] [place], [address] Chloride [Moles/Vol] 96 mmol/L Low 98-108 [facility] Comment on above: Performed By: #### L 100.0100, L500.4050 ####[facility] [address] [place], [address] CO2 [Moles/Vol] 27.3 mmol/L Normal 21.0-32.0 [facility] Comment on above: Performed By: #### L 100.0100, L500.4050 ####[facility] [address] [place], [address] Creatinine [Mass/Vol] 0.63 mg/dL Low 0.70-1.20 [facility] Comment on above: Performed By: #### L 100.0100, L500.4050 ####[facility] [address] [place], [address] ECRCL 94.30 ml/min Normal 50-250 [facility] Comment on above: Performed By: #### L 100.0100, L500.4050 ####[facility] [address] [place], [address] GAP 11 Normal 5-15 [facility] Comment on above: Performed By: #### L 100.0100, L500.4050 ####[facility] [address] [place], [address] GFR/1.73 sq M.predicted among non-blacks MDRD (S/P/Bld) [Vol rate/Area] 109 mL/min/{1.73_m2} Normal >60 [facility] Comment on above: Result Comment: mL/m in/1.73m2 CKD-EPI Creatinine Equation (2020) Performed By: #### L 100.0100, L500.4050 ####[facility] [address] [place], [address] Globulin (S) [Mass/Vol] 2.9 g/dL Normal 2.2-4.2 [facility] Comment on above: Performed By: #### L 100.0100, L500.4050 ####[facility] [address] [place], [address] Glucose [Mass/Vol] 171 mg/dL High 70-99 [facility] Comment on above: Performed By: #### L 100.0100, L500.4050 ####[facility] [address] [place], [address] Potassium [Moles/Vol] 4.7 mmol/L Normal 3.3-5.1 [facility] Comment on above: Performed By: #### L 100.0100, L500.4050 ####[facility] [address] [place], [address] Sodium [Moles/Vol] 134 mmol/L Normal 133-145 [facility] Comment on above: Performed By: #### L 100.0100, L500.4050 ####[facility] [address] [place], [address] T PROT 6.3 g/dL Normal 5.9-8.4 [facility] Comment on above: Performed By: #### L 100.0100, L500.4050 ####[facility] [address] [place], [address] Urea nitrogen [Mass/Vol] 6 mg/dL Normal 4-19 [facility] Comment on above: Performed By: #### L 100.0100, L500.4050 ####[facility] [address] [place], [address] Eosinophil percentageOrdered By: Canelo Myers on 05-04-2025 Eosinophils/100 WBC (Bld) 2.7 % 0-5 [facility] Erythrocyte distribution wid th ratioOrdered By: Canelo Myers on 05-04-2025 Erythrocyte distribution width (RBC) [Ratio] 12.8 % 11.6-14.6 [facility] Erythrocyte distribution wid th standard deviationOrdered By: Canelo Myers on 05-04-2025 Erythrocyte distribution width (RBC) [Ratio] 49.9 fl High 35.1-43.9 [facility] Glomerular filtration rate ( GFR) estimation/1.73 sq m using serum, plasma, or whole bOrdered By: Canelo Myers on 05-04-2025 GFR/1.73 sq M.predicted among non-blacks MDRD (S/P/Bld) [Vol rate/Area] 109 mL/min/{1.73_m2} >60 [facility] Comment on above: mL/min/1.73m2 CKD-EP I Creatinine Equation (2020) Hematocrit Auto (Bld) [Volum e fraction]Ordered By: Canelo Myers on 05-04-2025 Hematocrit (Bld) [Volume fraction] 30.6 % Low 37-47 [facility] Hemoglobin measurementOrdere d By: Canelo Myers on 05-04-2025 Hemoglobin (Bld) [Mass/Vol] 10.3 g/dL Low 12.0-15.0 [facility] Immature granulocytes/100 WB C Auto (Bld)Ordered By: Canelo Myers on 05-04-2025 Immature granulocytes/100 WBC (Bld) 0.300 % 0.0-0.9 [facility] Comment on above: IG% - Immature Granu locytes (promyelocytes, myelocytes and metamyelocytes) > 1% indicates that a LEFT SHIFT is Present. Laboratory - Chemistry and C hemistry - challengeOrdered By: Canelo Myers on 05-04-2025 AST [Catalytic activity/Vol] 51 U/L High <32 [facility] MCV (mean corpuscular volume ) determinationOrdered By: Canelo Myers on 05-04-2025 MCV (RBC) [Entitic vol] 106.3 fL High 81-99 [facility] Mean corpuscular hemoglobin (MCH) determinationOrdered By: Canelo Myers on 05-04-2025 MCH (RBC) [Entitic mass] 35.8 pg High 27.0-32.0 [facility] Mean corpuscular hemoglobin concentration (MCHC) determinationOrdered By: Canelo Myers on 05-04-2025 MCHC (RBC) [Mass/Vol] 33.7 g/dL 32-36 [facility] Mean platelet volume determi nationOrdered By: Canelo Myers on 05-04-2025 Platelet mean volume (Bld) [Entitic vol] 10.3 fL 6.2-12.0 [facility] Monocyte percentageOrdered B y: Canelo Myers on 05-04-2025 Monocytes/100 WBC (Bld) 15.4 % High 0-10 [facility] Neutrophil percentageOrdered By: Canelo Myers on 05-04-2025 Neutrophils/100 WBC (Bld) 58.1 % 47-70 [facility] No Panel InformationOrdered By: Canelo Myers on 05-04-2025 51 U/L High <32 [facility] Nucleated red blood cell per centageOrdered By: Canelo Myers on 05-04-2025 Nucleated RBC/100 WBC (Bld) [Ratio] 0 % 0-5 [facility] Platelet countOrdered By: Henrry Myers on 05-04-2025 Platelets (Bld) [#/Vol] 376 10*3/uL 150-450 [facility] Potassium measurement (mass/ volume)Ordered By: Canelo Myers on 05-04-2025 Potassium (Unsp spec) [Mass/Vol] 4.7 mmol/L 3.3-5.1 [facility] RBC Auto (Bld) [#/Vol]Ordere d By: Canelo Myers on 05-04-2025 RBC (Bld) [#/Vol] 2.88 10*6/uL Low 4.2-5.4 [facility] Serum creatinine measurement (mass/volume)Ordered By: Canelo Myers on 05-04-2025 Creatinine [Mass/Vol] 0.63 mg/dL Low 0.70-1.20 [facility] Serum globulin measurementOr dered By: Canelo Myers on 05-04-2025 Globulin (S) [Mass/Vol] 2.9 g/dL 2.2-4.2 [facility] Serum glucose measurement (m ass/volume)Ordered By: Canelo Myers on 05-04-2025 Glucose [Mass/Vol] 171 mg/dL High 70-99 [facility] Serum or plasma alanine wilkerson otransferase (ALT) measurementOrdered By: Canelo Myers on 05-04-2025 ALT [Catalytic activity/Vol] 45 U/L High <35 [facility] Serum or plasma albumin alphonso urement (mass/volume)Ordered By: Canelo Myers on 05-04-2025 Albumin [Mass/Vol] 3.4 g/dL Low 3.5-5.0 [facility] Serum or plasma albumin/glob ulin mass ratioOrdered By: Canelo Myers on 05-04-2025 Albumin/Globulin [Mass ratio] 1.1 {ratio} 0.9-2.4 [facility] Serum or plasma alkaline trinity sphatase measurementOrdered By: Canelo Myers on 05-04-2025 ALP [Catalytic activity/Vol] 441 U/L High 35-104 [facility] Serum or plasma calcium alphonso urement (mass/volume)Ordered By: Canelo Myers on 05-04-2025 Calcium [Mass/Vol] 9.3 mg/dL 7.6-11.0 [facility] Serum or plasma urea nitroge n measurement (mass/volume)Ordered By: Canelo Myers on 05-04-2025 Urea nitrogen [Mass/Vol] 6 mg/dL 4-19 [facility] Sodium levelOrdered By: Ganesh Myers on 05-04-2025 Sodium [Moles/Vol] 134 mmol/L 133-145 [facility] Total proteinOrdered By: Guido Myers on 05-04-2025 Protein [Mass/Vol] 6.3 g/dL 5.9-8.4 [facility] White blood cell (WBC) count Ordered By: Canelo Myers on 05-04-2025 WBC (Bld) [#/Vol] 5.9 10*3/uL 4.4-11.0 [facility] Bedside Glucoseon 05-03-2025 FINGERSTICK GLU 230 mg/dL High 74-106 [facility] Comment on above: Result Comment: CHAUNCEY RIZO OF PATIENT CARE PER NURSING PROTOCOL Performed By: #### L 501.080 ####[facility] [address] [place], [address] FINGERSTICK GLU 237 mg/dL High 74-106 [facility] Comment on above: Result Comment: CHAUNCEY GEMENT OF PATIENT CARE PER NURSING PROTOCOL Performed By: #### L 501.080 ####[facility] [address] [place], [address] FINGERSTICK GLU 220 mg/dL High 74-106 [facility] Comment on above: Result Comment: CHAUNCEY GEMENT OF PATIENT CARE PER NURSING PROTOCOL Performed By: #### L 501.080 ####[facility] [address] [place], [address] CBC W/Diff, Automatedon 06-0 5-5 Absolute Lymph 1.14 X10 3/uL Normal 0.83-4.51 [facility] Comment on above: Performed By: #### L 100.0100, L500.4050 ####[facility] [address] [place], [address] Absolute Neut 3.5 X10 3/uL Normal 2.0-7.7 [facility] Comment on above: Performed By: #### L 100.0100, L500.4050 ####[facility] [address] [place], [address] Basophils/100 WBC (Bld) 0.7 % Normal 0-1 [facility] Comment on above: Performed By: #### L 100.0100, L500.4050 ####[facility] [address] [place], [address] Eosinophils/100 WBC (Bld) 3.1 % Normal 0-5 [facility] Comment on above: Performed By: #### L 100.0100, L500.4050 ####[facility] [address] [place], [address] Erythrocyte distribution width (RBC) [Ratio] 12.5 % Normal 11.6-14.6 [facility] Comment on above: Performed By: #### L 100.0100, L500.4050 ####[facility] [address] [place], [address] Hematocrit (Bld) [Volume fraction] 31.0 % Low 37-47 [facility] Comment on above: Performed By: #### L 100.0100, L500.4050 ####[facility] [address] [place], [address] Hemoglobin (Bld) [Mass/Vol] 10.4 g/dL Low 12.0-15.0 [facility] Comment on above: Performed By: #### L 100.0100, L500.4050 ####[facility] [address] [place], [address] IG% 0.300 Normal 0.0-0.9 [facility] Comment on above: Result Comment: IG% - Immature Granulocytes (promyelocytes, myelocytes andmetamyelocytes) > 1% indicates that a LEFT SHIFT is Present. Performed By: #### L 100.0100, L500.4050 ####[facility] [address] [place], [address] Lymphocytes/100 WBC (Bld) 19.7 % Normal 19-41 [facility] Comment on above: Performed By: #### L 100.0100, L500.4050 ####[facility] [address] [place], [address] MCH (RBC) [Entitic mass] 35.6 pg High 27.0-32.0 [facility] Comment on above: Performed By: #### L 100.0100, L500.4050 ####[facility] [address] [place], [address] MCHC (RBC) [Mass/Vol] 33.5 g/dL Normal 32-36 [facility] Comment on above: Performed By: #### L 100.0100, L500.4050 ####[facility] [address] [place], [address] MCV (RBC) [Entitic vol] 106.2 fL High 81-99 [facility] Comment on above: Performed By: #### L 100.0100, L500.4050 ####[facility] [address] [place], [address] Monocytes/100 WBC (Bld) 15.1 % High 0-10 [facility] Comment on above: Performed By: #### L 100.0100, L500.4050 ####[facility] [address] [place], [address] Neutrophils/100 WBC (Bld) 61.1 % Normal 47-70 [facility] Comment on above: Performed By: #### L 100.0100, L500.4050 ####[facility] [address] [place], [address] Nucleated RBC (Bld) [#/Vol] 0 10*3/uL Normal 0-5 [facility] Comment on above: Performed By: #### L 100.0100, L500.4050 ####[facility] [address] [place], [address] Platelet mean volume (Bld) [Entitic vol] 10.2 fL Normal 6.2-12.0 [facility] Comment on above: Performed By: #### L 100.0100, L500.4050 ####[facility] [address] [place], [address] Platelets (Bld) [#/Vol] 297 10*3/uL Normal 150-450 [facility] Comment on above: Performed By: #### L 100.0100, L500.4050 ####[facility] [address] [place], [address] RBC (Bld) [#/Vol] 2.92 10*6/uL Low 4.2-5.4 [facility] Comment on above: Performed By: #### L 100.0100, L500.4050 ####[facility] [address] [place], [address] RDW SD 49.1 fl High 35.1-43.9 [facility] Comment on above: Performed By: #### L 100.0100, L500.4050 ####[facility] [address] [place], [address] WBC (Bld) [#/Vol] 5.8 10*3/uL Normal 4.4-11.0 [facility] Comment on above: Performed By: #### L 100.0100, L500.4050 ####[facility] [address] [place], [address] Comprehensive Metabolic Prof [facility] 05-03-2025 Albumin [Mass/Vol] 3.1 g/dL Low 3.5-5.0 [facility] Comment on above: Performed By: #### L 100.0100, L500.4050 ####[facility] [address] [place], [address] Albumin/Globulin [Mass ratio] 1.1 {ratio} Normal 0.9-2.4 [facility] Comment on above: Performed By: #### L 100.0100, L500.4050 ####[facility] [address] [place], [address] ALK PHOS 311 U/L High 35-104 [facility] Comment on above: Performed By: #### L 100.0100, L500.4050 ####[facility] [address] [place], [address] ALT [Catalytic activity/Vol] 38 U/L High <=34 [facility] Comment on above: Performed By: #### L 100.0100, L500.4050 ####[facility] [address] [place], [address] AST [Catalytic activity/Vol] 48 U/L High <=31 [facility] Comment on above: Performed By: #### L 100.0100, L500.4050 ####[facility] [address] [place], [address] Bilirubin [Mass/Vol] 0.32 mg/dL Normal 0.00-1.30 [facility] Comment on above: Performed By: #### L 100.0100, L500.4050 ####[facility] [address] [place], [address] BUN/CRE 12.9 RATIO Normal 10-20 [facility] Comment on above: Performed By: #### L 100.0100, L500.4050 ####[facility] [id number] [place], [address] Calcium [Mass/Vol] 8.5 mg/dL Normal 7.6-11.0 [facility] Comment on above: Performed By: #### L 100.0100, L500.4050 ####[facility] [address] [place], [address] Chloride [Moles/Vol] 97 mmol/L Low 98-108 [facility] Comment on above: Performed By: #### L 100.0100, L500.4050 ####[facility] [address] [place], [address] CO2 [Moles/Vol] 28.2 mmol/L Normal 21.0-32.0 [facility] Comment on above: Performed By: #### L 100.0100, L500.4050 ####[facility] [id number] [place], [address] Creatinine [Mass/Vol] 0.58 mg/dL Low 0.70-1.20 [facility] Comment on above: Performed By: #### L 100.0100, L500.4050 ####[facility] [address] [place], [address] ECRCL 102.43 ml/min Normal 50-250 [facility] Comment on above: Performed By: #### L 100.0100, L500.4050 ####[facility] [address] [place], [address] GAP 9 Normal 5-15 [facility] Comment on above: Performed By: #### L 100.0100, L500.4050 ####[facility] [address] [place], [address] GFR/1.73 sq M.predicted among non-blacks MDRD (S/P/Bld) [Vol rate/Area] 112 mL/min/{1.73_m2} Normal >60 [facility] Comment on above: Result Comment: mL/m in/1.73m2 CKD-EPI Creatinine Equation (2020) Performed By: #### L 100.0100, L500.4050 ####[facility] [address] [place], [address] Globulin (S) [Mass/Vol] 2.8 g/dL Normal 2.2-4.2 [facility] Comment on above: Performed By: #### L 100.0100, L500.4050 ####[facility] [address] [place], [address] Glucose [Mass/Vol] 227 mg/dL High 70-99 [facility] Comment on above: Performed By: #### L 100.0100, L500.4050 ####[facility] [address] [place], [address] Potassium [Moles/Vol] 4.8 mmol/L Normal 3.3-5.1 [facility] Comment on above: Performed By: #### L 100.0100, L500.4050 ####[facility] [address] [place], [address] Sodium [Moles/Vol] 135 mmol/L Normal 133-145 [facility] Comment on above: Performed By: #### L 100.0100, L500.4050 ####[facility] [address] [place], [address] T PROT 5.9 g/dL Normal 5.9-8.4 [facility] Comment on above: Performed By: #### L 100.0100, L500.4050 ####[facility] [address] [place], [address] Urea nitrogen [Mass/Vol] 7 mg/dL Normal 4-19 [facility] Comment on above: Performed By: #### L 100.0100, L500.4050 ####[facility] [address] [place], [address] Bedside Glucoseon 05-02-2025 FINGERSTICK GLU 288 mg/dL High 74-106 [facility] Comment on above: Result Comment: CHAUNCEY GEMENT OF PATIENT CARE PER NURSING PROTOCOL Performed By: #### L 501.080 ####[facility] [address] [place], [address] FINGERSTICK GLU 198 mg/dL High 74-106 [facility] Comment on above: Result Comment: CHAUNCEY GEMENT OF PATIENT CARE PER NURSING PROTOCOL Performed By: #### L 501.080 ####[facility] [address] [place], [address] FINGERSTICK GLU 196 mg/dL High 74-106 [facility] Comment on above: Result Comment: CHAUCNEY GEMENT OF PATIENT CARE PER NURSING PROTOCOL Performed By: #### L 501.080 ####[facility] [address] [place], [address] CBC W/Diff, Automatedon 06-0 4-2024 Absolute Lymph 1.17 X10 3/uL Normal 0.83-4.51 [facility] Comment on above: Performed By: #### L 501.5200, L500.4050, L100.0100, L501.2300 ####[facility] [address] [place], [address] Absolute Neut 3.0 X10 3/uL Normal 2.0-7.7 [facility] Comment on above: Performed By: #### L 501.5200, L500.4050, L100.0100, L501.2300 ####[facility] [address] [place], [address] Basophils/100 WBC (Bld) 0.6 % Normal 0-1 [facility] Comment on above: Performed By: #### L 501.5200, L500.4050, L100.0100, L501.2300 ####[facility] [address] [place], [address] Eosinophils/100 WBC (Bld) 3.3 % Normal 0-5 [facility] Comment on above: Performed By: #### L 501.5200, L500.4050, L100.0100, L501.2300 ####[facility] [address] [place], [address] Erythrocyte distribution width (RBC) [Ratio] 12.5 % Normal 11.6-14.6 [facility] Comment on above: Performed By: #### L 501.5200, L500.4050, L100.0100, L501.2300 ####[facility] [address] [place], [address] Hematocrit (Bld) [Volume fraction] 30.1 % Low 37-47 [facility] Comment on above: Performed By: #### L 501.5200, L500.4050, L100.0100, L501.2300 ####[facility] [address] [place], [address] Hemoglobin (Bld) [Mass/Vol] 10.4 g/dL Low 12.0-15.0 [facility] Comment on above: Performed By: #### L 501.5200, L500.4050, L100.0100, L501.2300 ####[facility] [address] [place], [address] IG% 0.600 Normal 0.0-0.9 [facility] Comment on above: Result Comment: IG% - Immature Granulocytes (promyelocytes, myelocytes andmetamyelocytes) > 1% indicates that a LEFT SHIFT is Present. Performed By: #### L 501.5200, L500.4050, L100.0100, L501.2300 ####[facility] [address] [place], [address] Lymphocytes/100 WBC (Bld) 22.5 % Normal 19-41 [facility] Comment on above: Performed By: #### L 501.5200, L500.4050, L100.0100, L501.2300 ####[facility] [address] [place], [address] MCH (RBC) [Entitic mass] 36.9 pg High 27.0-32.0 [facility] Comment on above: Performed By: #### L 501.5200, L500.4050, L100.0100, L501.2300 ####[facility] [address] [place], [address] MCHC (RBC) [Mass/Vol] 34.6 g/dL Normal 32-36 [facility] Comment on above: Performed By: #### L 501.5200, L500.4050, L100.0100, L501.2300 ####[facility] [address] [place], [address] MCV (RBC) [Entitic vol] 106.7 fL High 81-99 [facility] Comment on above: Performed By: #### L 501.5200, L500.4050, L100.0100, L501.2300 ####[facility] [address] [place], [address] Monocytes/100 WBC (Bld) 15.8 % High 0-10 [facility] Comment on above: Performed By: #### L 501.5200, L500.4050, L100.0100, L501.2300 ####[facility] [address] [place], [address] Neutrophils/100 WBC (Bld) 57.2 % Normal 47-70 [facility] Comment on above: Performed By: #### L 501.5200, L500.4050, L100.0100, L501.2300 ####[facility] [address] [place], [address] Nucleated RBC (Bld) [#/Vol] 0 10*3/uL Normal 0-5 [facility] Comment on above: Performed By: #### L 501.5200, L500.4050, L100.0100, L501.2300 ####[facility] [address] [place], [address] Platelet mean volume (Bld) [Entitic vol] 10.3 fL Normal 6.2-12.0 [facility] Comment on above: Performed By: #### L 501.5200, L500.4050, L100.0100, L501.2300 ####[facility] [address] [place], [address] Platelets (Bld) [#/Vol] 247 10*3/uL Normal 150-450 [facility] Comment on above: Performed By: #### L 501.5200, L500.4050, L100.0100, L501.2300 ####[facility] [address] [place], [address] RBC (Bld) [#/Vol] 2.82 10*6/uL Low 4.2-5.4 [facility] Comment on above: Performed By: #### L 501.5200, L500.4050, L100.0100, L501.2300 ####[facility] [address] [place], [address] RDW SD 49.4 fl High 35.1-43.9 [facility] Comment on above: Performed By: #### L 501.5200, L500.4050, L100.0100, L501.2300 ####[facility] [address] [place], [address] WBC (Bld) [#/Vol] 5.2 10*3/uL Normal 4.4-11.0 [facility] Comment on above: Performed By: #### L 501.5200, L500.4050, L100.0100, L501.2300 ####[facility] [address] [place], [address] Comprehensive Metabolic [facility] 05-02-2025 Albumin [Mass/Vol] 3.1 g/dL Low 3.5-5.0 [facility] Comment on above: Performed By: #### L 501.5200, L500.4050, L100.0100, L501.2300 ####[facility] [address] [place], [address] Albumin/Globulin [Mass ratio] 1.2 {ratio} Normal 0.9-2.4 [facility] Comment on above: Performed By: #### L 501.5200, L500.4050, L100.0100, L501.2300 ####[facility] [address] [place], [address] ALK PHOS 230 U/L High 35-104 [facility] Comment on above: Performed By: #### L 501.5200, L500.4050, L100.0100, L501.2300 ####[facility] [address] [place], [address] ALT [Catalytic activity/Vol] 33 U/L Normal <=34 [facility] Comment on above: Performed By: #### L 501.5200, L500.4050, L100.0100, L501.2300 ####[facility] [address] [place], [address] AST [Catalytic activity/Vol] 40 U/L High <=31 [facility] Comment on above: Performed By: #### L 501.5200, L500.4050, L100.0100, L501.2300 ####[facility] [address] [place], [address] Bilirubin [Mass/Vol] 0.49 mg/dL Normal 0.00-1.30 [facility] Comment on above: Performed By: #### L 501.5200, L500.4050, L100.0100, L501.2300 ####[facility] [address] [place], [address] BUN/CRE 13.6 RATIO Normal 10-20 [facility] Comment on above: Performed By: #### L 501.5200, L500.4050, L100.0100, L501.2300 ####[facility] [address] [place], [address] Calcium [Mass/Vol] 8.7 mg/dL Normal 7.6-11.0 [facility] Comment on above: Performed By: #### L 501.5200, L500.4050, L100.0100, L501.2300 ####[facility] [address] [place], [address] Chloride [Moles/Vol] 95 mmol/L Low 98-108 [facility] Comment on above: Performed By: #### L 501.5200, L500.4050, L100.0100, L501.2300 ####[facility] [address] [place], [address] CO2 [Moles/Vol] 28.5 mmol/L Normal 21.0-32.0 [facility] Comment on above: Performed By: #### L 501.5200, L500.4050, L100.0100, L501.2300 ####[facility] [address] [place], [address] Creatinine [Mass/Vol] 0.52 mg/dL Low 0.70-1.20 [facility] Comment on above: Performed By: #### L 501.5200, L500.4050, L100.0100, L501.2300 ####[facility] [address] [place], [address] ECRCL 114.25 ml/min Normal 50-250 [facility] Comment on above: Performed By: #### L 501.5200, L500.4050, L100.0100, L501.2300 ####[facility] [address] [place], [address] GAP 11 Normal 5-15 [facility] Comment on above: Performed By: #### L 501.5200, L500.4050, L100.0100, L501.2300 ####[facility] [address] [place], [address] GFR/1.73 sq M.predicted among non-blacks MDRD (S/P/Bld) [Vol rate/Area] 115 mL/min/{1.73_m2} Normal >60 [facility] Comment on above: Result Comment: mL/m in/1.73m2 CKD-EPI Creatinine Equation (2020) Performed By: #### L 501.5200, L500.4050, L100.0100, L501.2300 ####[facility] [address] [place], [address] Globulin (S) [Mass/Vol] 2.7 g/dL Normal 2.2-4.2 [facility] Comment on above: Performed By: #### L 501.5200, L500.4050, L100.0100, L501.2300 ####[facility] [address] [place], [address] Glucose [Mass/Vol] 197 mg/dL High 70-99 [facility] Comment on above: Performed By: #### L 501.5200, L500.4050, L100.0100, L501.2300 ####[facility] [address] [place], [address] Potassium [Moles/Vol] 4.2 mmol/L Normal 3.3-5.1 [facility] Comment on above: Performed By: #### L 501.5200, L500.4050, L100.0100, L501.2300 ####[facility] [address] [place], [address] Sodium [Moles/Vol] 134 mmol/L Normal 133-145 [facility] Comment on above: Performed By: #### L 501.5200, L500.4050, L100.0100, L501.2300 ####[facility] [address] [place], [address] T PROT 5.8 g/dL Low 5.9-8.4 [facility] Comment on above: Performed By: #### L 501.5200, L500.4050, L100.0100, L501.2300 ####[facility] [address] [place], [address] Urea nitrogen [Mass/Vol] 7 mg/dL Normal 4-19 [facility] Comment on above: Performed By: #### L 501.5200, L500.4050, L100.0100, L501.2300 ####[facility] [address] [place], [address] Magnesiumon 05-02-2025 Magnesium [Mass/Vol] 1.2 mg/dL Low 1.5-2.2 [facility] Comment on above: Performed By: #### L 501.5200, L500.4050, L100.0100, L501.2300 ####[facility] [address] [place], [address] Magnesium measurement (mass/ volume)Ordered By: Canelo Myers on 05-02-2025 Magnesium (Unsp spec) [Mass/Vol] 1.2 mg/dL Low 1.5-2.2 [facility] Phosphoruson 05-02-2025 Phosphate [Mass/Vol] 5.0 mg/dL High 2.7-4.5 [facility] Comment on above: Performed By: #### L 501.5200, L500.4050, L100.0100, L501.2300 ####[facility] [address] [place], [address] Bedside Glucoseon 05-01-2025 FINGERSTICK GLU 234 mg/dL High 74-106 [facility] Comment on above: Result Comment: CHAUNCEY GEMENT OF PATIENT CARE PER NURSING PROTOCOL Performed By: #### L 501.080 ####[facility] [address] [place], [address] FINGERSTICK GLU 316 mg/dL High 74-106 [facility] Comment on above: Result Comment: CHAUNCEY GEMENT OF PATIENT CARE PER NURSING PROTOCOL Performed By: #### L 501.080 ####[facility] [address] [place], [address] FINGERSTICK GLU 168 mg/dL High 74-106 [facility] Comment on above: Result Comment: CHAUNCEY RIZO OF PATIENT CARE PER NURSING PROTOCOL Performed By: #### L 501.080 ####[facility] [address] [place], [address] Bilirubin directOrdered By: Canelo Myers on 05-01-2025 Bilirubin.direct [Mass/Vol] 0.32 mg/dL High 0.00-0.30 [facility] Liver Profileon 05-01-2025 Albumin [Mass/Vol] 3.0 g/dL Low 3.5-5.0 [facility] Comment on above: Performed By: #### L 500.3400 ####[facility] [address] [place], [address] ALK PHOS 166 U/L High 35-104 [facility] Comment on above: Performed By: #### L 500.3400 ####[facility] [address] [place], [address] ALT [Catalytic activity/Vol] 39 U/L High <=34 [facility] Comment on above: Performed By: #### L 500.3400 ####[facility] [address] [place], [address] AST [Catalytic activity/Vol] 73 U/L High <=31 [facility] Comment on above: Performed By: #### L 500.3400 ####[facility] [address] [place], [address] Bilirubin [Mass/Vol] 0.59 mg/dL Normal 0.00-1.30 [facility] Comment on above: Performed By: #### L 500.3400 ####[facility] [address] [place], [address] Bilirubin.direct [Mass/Vol] 0.32 mg/dL High 0.00-0.30 [facility] Comment on above: Performed By: #### L 500.3400 ####[facility] [address] [place], [address] Globulin (S) [Mass/Vol] 2.7 g/dL Normal 2.2-4.2 [facility] Comment on above: Performed By: #### L 500.3400 ####[facility] [address] [place], [address] T PROT 5.7 g/dL Low 5.9-8.4 [facility] Comment on above: Performed By: #### L 500.3400 ####[facility] [address] [place], [address] Phosphoruson 05-01-2025 Phosphate [Mass/Vol] 5.1 mg/dL High 2.7-4.5 [facility] Comment on above: Performed By: #### L 501.2300 ####[facility] [address] [place], [address] Basic Metabolic Profile (BMP )on 04-30-2025 BUN/CRE UNABLE TO CALCULATE Low 10-20 [facility] Comment on above: Performed By: #### L 500.2500, L500.3400, L100.0100 ####[facility] [address] [place], [address] Calcium [Mass/Vol] 8.5 mg/dL Normal 7.6-11.0 [facility] Comment on above: Performed By: #### L 500.2500, L500.3400, L100.0100 ####[facility] [address] [place], [address] Chloride [Moles/Vol] 98 mmol/L Normal 98-108 [facility] Comment on above: Performed By: #### L 500.2500, L500.3400, L100.0100 ####[facility] [address] [place], [address] CO2 [Moles/Vol] 28.1 mmol/L Normal 21.0-32.0 [facility] Comment on above: Performed By: #### L 500.2500, L500.3400, L100.0100 ####[facility] [address] [place], [address] Creatinine [Mass/Vol] 0.41 mg/dL Low 0.70-1.20 [facility] Comment on above: Performed By: #### L 500.2500, L500.3400, L100.0100 ####[facility] [address] [place], [address] ECRCL 144.90 ml/min Normal 50-250 [facility] Comment on above: Performed By: #### L 500.2500, L500.3400, L100.0100 ####[facility] [address] [place], [address] GAP 13 Normal 5-15 [facility] Comment on above: Performed By: #### L 500.2500, L500.3400, L100.0100 ####[facility] [address] [place], [address] GFR/1.73 sq M.predicted among non-blacks MDRD (S/P/Bld) [Vol rate/Area] 121 mL/min/{1.73_m2} Normal >60 [facility] Comment on above: Result Comment: mL/m in/1.73m2 CKD-EPI Creatinine Equation (2020) Performed By: #### L 500.2500, L500.3400, L100.0100 ####[facility] [address] [place], [address] Glucose [Mass/Vol] 124 mg/dL High 70-99 [facility] Comment on above: Performed By: #### L 500.2500, L500.3400, L100.0100 ####[facility] [address] [place], [address] Potassium [Moles/Vol] 2.7 mmol/L Invalid Interpretation Code 3.3-5.1 [facility] Comment on above: Result Comment: Crit ical Result(s) Called at: by:??Results read back bysame. Performed By: #### L 500.2500, L500.3400, L100.0100 ####[facility] [address] [place], [address] Sodium [Moles/Vol] 139 mmol/L Normal 133-145 [facility] Comment on above: Performed By: #### L 500.2500, L500.3400, L100.0100 ####[facility] [address] [place], [address] Urea nitrogen [Mass/Vol] mg/dL Low 4-19 [facility] Comment on above: Performed By: #### L 500.2500, L500.3400, L100.0100 ####[facility] [address] [place], [address] Bedside Glucoseon 04-30-2025 FINGERSTICK GLU 147 mg/dL High 74-106 [facility] Comment on above: Result Comment: CHAUNCEY GEMENT OF PATIENT CARE PER NURSING PROTOCOL Performed By: #### L 501.080 ####[facility] [address] [place], [address] FINGERSTICK GLU 230 mg/dL High 74-106 [facility] Comment on above: Result Comment: CHAUNCEY GEMENT OF PATIENT CARE PER NURSING PROTOCOL Performed By: #### L 501.080 ####[facility] [address] [place], [address] FINGERSTICK GLU 149 mg/dL High 74-106 [facility] Comment on above: Result Comment: CHAUNCEY GEMENT OF PATIENT CARE PER NURSING PROTOCOL Performed By: #### L 501.080 ####[facility] [address] [place], [address] CBC W/Diff, Automatedon 06-0 2-5 Absolute Lymph 1.39 X10 3/uL Normal 0.83-4.51 [facility] Comment on above: Performed By: #### L 500.2500, L500.3400, L100.0100 ####[facility] [address] [place], [address] Absolute Neut 3.6 X10 3/uL Normal 2.0-7.7 [facility] Comment on above: Performed By: #### L 500.2500, L500.3400, L100.0100 ####[facility] [address] [place], [address] Basophils/100 WBC (Bld) 0.5 % Normal 0-1 [facility] Comment on above: Performed By: #### L 500.2500, L500.3400, L100.0100 ####[facility] [address] [place], [address] Eosinophils/100 WBC (Bld) 2.0 % Normal 0-5 [facility] Comment on above: Performed By: #### L 500.2500, L500.3400, L100.0100 ####[facility] [address] [place], [address] Erythrocyte distribution width (RBC) [Ratio] 12.6 % Normal 11.6-14.6 [facility] Comment on above: Performed By: #### L 500.2500, L500.3400, L100.0100 ####[facility] [address] [place], [address] Hematocrit (Bld) [Volume fraction] 29.7 % Low 37-47 [facility] Comment on above: Performed By: #### L 500.2500, L500.3400, L100.0100 ####[facility] [address] [place], [address] Hemoglobin (Bld) [Mass/Vol] 10.3 g/dL Low 12.0-15.0 [facility] Comment on above: Performed By: #### L 500.2500, L500.3400, L100.0100 ####[facility] [address] [place], [address] IG% 0.500 Normal 0.0-0.9 [facility] Comment on above: Result Comment: IG% - Immature Granulocytes (promyelocytes, myelocytes andmetamyelocytes) > 1% indicates that a LEFT SHIFT is Present. Performed By: #### L 500.2500, L500.3400, L100.0100 ####[facility] [address] [place], [address] Lymphocytes/100 WBC (Bld) 23.4 % Normal 19-41 [facility] Comment on above: Performed By: #### L 500.2500, L500.3400, L100.0100 ####[facility] [address] [place], [address] MCH (RBC) [Entitic mass] 36.7 pg High 27.0-32.0 [facility] Comment on above: Performed By: #### L 500.2500, L500.3400, L100.0100 ####[facility] [address] [place], [address] MCHC (RBC) [Mass/Vol] 34.7 g/dL Normal 32-36 [facility] Comment on above: Performed By: #### L 500.2500, L500.3400, L100.0100 ####[facility] [address] [place], [address] MCV (RBC) [Entitic vol] 105.7 fL High 81-99 [facility] Comment on above: Performed By: #### L 500.2500, L500.3400, L100.0100 ####[facility] [address] [place], [address] Monocytes/100 WBC (Bld) 13.8 % High 0-10 [facility] Comment on above: Performed By: #### L 500.2500, L500.3400, L100.0100 ####[facility] [address] [place], [address] Neutrophils/100 WBC (Bld) 59.8 % Normal 47-70 [facility] Comment on above: Performed By: #### L 500.2500, L500.3400, L100.0100 ####[facility] [address] [place], [address] Nucleated RBC (Bld) [#/Vol] 0 10*3/uL Normal 0-5 [facility] Comment on above: Performed By: #### L 500.2500, L500.3400, L100.0100 ####[facility] [address] [place], [address] Platelet mean volume (Bld) [Entitic vol] 10.4 fL Normal 6.2-12.0 [facility] Comment on above: Performed By: #### L 500.2500, L500.3400, L100.0100 ####[facility] [address] [place], [address] Platelets (Bld) [#/Vol] 145 10*3/uL Low 150-450 [facility] Comment on above: Performed By: #### L 500.2500, L500.3400, L100.0100 ####[facility] [address] [place], [address] RBC (Bld) [#/Vol] 2.81 10*6/uL Low 4.2-5.4 [facility] Comment on above: Performed By: #### L 500.2500, L500.3400, L100.0100 ####[facility] [address] [place], [address] RDW SD 49.7 fl High 35.1-43.9 [facility] Comment on above: Performed By: #### L 500.2500, L500.3400, L100.0100 ####[facility] [address] [place], [address] WBC (Bld) [#/Vol] 6.0 10*3/uL Normal 4.4-11.0 [facility] Comment on above: Performed By: #### L 500.2500, L500.3400, L100.0100 ####[facility] [address] [place], [address] Liver Profileon 04-30-2025 Albumin [Mass/Vol] 3.2 g/dL Low 3.5-5.0 [facility] Comment on above: Performed By: #### L 500.2500, L500.3400, L100.0100 ####[facility] [address] [place], [address] ALK PHOS 98 U/L Normal 35-104 [facility] Comment on above: Performed By: #### L 500.2500, L500.3400, L100.0100 ####[facility] [address] [place], [address] ALT [Catalytic activity/Vol] 32 U/L Normal <=34 [facility] Comment on above: Performed By: #### L 500.2500, L500.3400, L100.0100 ####[facility] [address] [place], [address] AST [Catalytic activity/Vol] 39 U/L High <=31 [facility] Comment on above: Performed By: #### L 500.2500, L500.3400, L100.0100 ####[facility] [address] [place], [address] Bilirubin [Mass/Vol] 0.67 mg/dL Normal 0.00-1.30 [facility] Comment on above: Performed By: #### L 500.2500, L500.3400, L100.0100 ####[facility] [address] [place], [address] Bilirubin.direct [Mass/Vol] 0.41 mg/dL High 0.00-0.30 [facility] Comment on above: Performed By: #### L 500.2500, L500.3400, L100.0100 ####[facility] [address] [place], [address] Globulin (S) [Mass/Vol] 2.6 g/dL Normal 2.2-4.2 [facility] Comment on above: Performed By: #### L 500.2500, L500.3400, L100.0100 ####[facility] [address] [place], [address] T PROT 5.9 g/dL Normal 5.9-8.4 [facility] Comment on above: Performed By: #### L 500.2500, L500.3400, L100.0100 ####[facility] [address] [place], [address] Magnesiumon 04-30-2025 Magnesium [Mass/Vol] 1.5 mg/dL Normal 1.5-2.2 [facility] Comment on above: Performed By: #### L 501.5200 ####[facility] [address] [place], [address] Basic Metabolic Profile (BMP )on 04-29-2025 BUN/CRE UNABLE TO CALCULATE Low 10-20 [facility] Comment on above: Performed By: #### L 500.2500, L500.3400, L501.5200, L100.0100 ####[facility] [address] [place], [address] Calcium [Mass/Vol] 8.2 mg/dL Normal 7.6-11.0 [facility] Comment on above: Performed By: #### L 500.2500, L500.3400, L501.5200, L100.0100 ####[facility] [address] [place], [address] Chloride [Moles/Vol] 103 mmol/L Normal 98-108 [facility] Comment on above: Performed By: #### L 500.2500, L500.3400, L501.5200, L100.0100 ####[facility] [address] [place], [address] CO2 [Moles/Vol] 26.0 mmol/L Normal 21.0-32.0 [facility] Comment on above: Performed By: #### L 500.2500, L500.3400, L501.5200, L100.0100 ####[facility] [address] [place], [address] Creatinine [Mass/Vol] 0.40 mg/dL Low 0.70-1.20 [facility] Comment on above: Performed By: #### L 500.2500, L500.3400, L501.5200, L100.0100 ####[facility] [address] [place], [address] ECRCL 148.53 ml/min Normal 50-250 [facility] Comment on above: Performed By: #### L 500.2500, L500.3400, L501.5200, L100.0100 ####[facility] [address] [place], [address] GAP 11 Normal 5-15 [facility] Comment on above: Performed By: #### L 500.2500, L500.3400, L501.5200, L100.0100 ####[facility] [address] [place], [address] GFR/1.73 sq M.predicted among non-blacks MDRD (S/P/Bld) [Vol rate/Area] 122 mL/min/{1.73_m2} Normal >60 [facility] Comment on above: Result Comment: mL/m in/1.73m2 CKD-EPI Creatinine Equation (2020) Performed By: #### L 500.2500, L500.3400, L501.5200, L100.0100 ####[facility] [address] [place], [address] Glucose [Mass/Vol] 126 mg/dL High 70-99 [facility] Comment on above: Performed By: #### L 500.2500, L500.3400, L501.5200, L100.0100 ####[facility] [address] [place], [address] Potassium [Moles/Vol] 2.8 mmol/L Low 3.3-5.1 [facility] Comment on above: Performed By: #### L 500.2500, L500.3400, L501.5200, L100.0100 ####[facility] [address] [place], [address] Sodium [Moles/Vol] 140 mmol/L Normal 133-145 [facility] Comment on above: Performed By: #### L 500.2500, L500.3400, L501.5200, L100.0100 ####[facility] [address] [place], [address] Urea nitrogen [Mass/Vol] mg/dL Low 4-19 [facility] Comment on above: Performed By: #### L 500.2500, L500.3400, L501.5200, L100.0100 ####[facility] [address] [place], [address] Bedside Glucoseon 04-29-2025 FINGERSTICK GLU 187 mg/dL High 74-106 [facility] Comment on above: Result Comment: CHAUNCEY GEMENT OF PATIENT CARE PER NURSING PROTOCOL Performed By: #### L 501.080 ####[facility] [address] [place], [address] FINGERSTICK GLU 121 mg/dL High -106 [facility] Comment on above: Result Comment: CHAUNCEY GEMENT OF PATIENT CARE PER NURSING PROTOCOL Performed By: #### L 501.080 ####[facility] [address] [place], [address] FINGERSTICK GLU 218 mg/dL High 74-106 [facility] Comment on above: Result Comment: CHAUNCEY GEMENT OF PATIENT CARE PER NURSING PROTOCOL Performed By: #### L 501.080 ####[facility] [address] [place], [address] FINGERSTICK GLU 132 mg/dL High -106 [facility] Comment on above: Result Comment: CHAUNCEY GEMENT OF PATIENT CARE PER NURSING PROTOCOL Performed By: #### L 501.080 ####[facility] [address] [place], [address] CBC W/Diff, Automatedon 06-0 Absolute Lymph 1.02 X10 3/uL Normal 0.83-4.51 [facility] Comment on above: Performed By: #### L 500.2500, L500.3400, L501.5200, L100.0100 ####[facility] [address] [place], [address] Absolute Neut 5.3 X10 3/uL Normal 2.0-7.7 [facility] Comment on above: Performed By: #### L 500.2500, L500.3400, L501.5200, L100.0100 ####[facility] [address] [place], [address] Basophils/100 WBC (Bld) 0.4 % Normal 0-1 [facility] Comment on above: Performed By: #### L 500.2500, L500.3400, L501.5200, L100.0100 ####[facility] [address] [place], [address] Eosinophils/100 WBC (Bld) 1.1 % Normal 0-5 [facility] Comment on above: Performed By: #### L 500.2500, L500.3400, L501.5200, L100.0100 ####[facility] [address] [place], [address] Erythrocyte distribution width (RBC) [Ratio] 12.2 % Normal 11.6-14.6 [facility] Comment on above: Performed By: #### L 500.2500, L500.3400, L501.5200, L100.0100 ####[facility] [address] [place], [address] Hematocrit (Bld) [Volume fraction] 28.7 % Low 37-47 [facility] Comment on above: Performed By: #### L 500.2500, L500.3400, L501.5200, L100.0100 ####[facility] [address] [place], [address] Hemoglobin (Bld) [Mass/Vol] 9.9 g/dL Low 12.0-15.0 [facility] Comment on above: Performed By: #### L 500.2500, L500.3400, L501.5200, L100.0100 ####[facility] [address] [place], [address] IG% 0.600 Normal 0.0-0.9 [facility] Comment on above: Result Comment: IG% - Immature Granulocytes (promyelocytes, myelocytes andmetamyelocytes) > 1% indicates that a LEFT SHIFT is Present. Performed By: #### L 500.2500, L500.3400, L501.5200, L100.0100 ####[facility] [address] [place], [address] Lymphocytes/100 WBC (Bld) 14.1 % Low 19-41 [facility] Comment on above: Performed By: #### L 500.2500, L500.3400, L501.5200, L100.0100 ####[facility] [address] [place], [address] MCH (RBC) [Entitic mass] 36.5 pg High 27.0-32.0 [facility] Comment on above: Performed By: #### L 500.2500, L500.3400, L501.5200, L100.0100 ####[facility] [address] [place], [address] MCHC (RBC) [Mass/Vol] 34.5 g/dL Normal 32-36 [facility] Comment on above: Performed By: #### L 500.2500, L500.3400, L501.5200, L100.0100 ####[facility] [address] [place], [address] MCV (RBC) [Entitic vol] 105.9 fL High 81-99 [facility] Comment on above: Performed By: #### L 500.2500, L500.3400, L501.5200, L100.0100 ####[facility] [address] [place], [address] Monocytes/100 WBC (Bld) 10.9 % High 0-10 [facility] Comment on above: Performed By: #### L 500.2500, L500.3400, L501.5200, L100.0100 ####[facility] [address] [place], [address] Neutrophils/100 WBC (Bld) 72.9 % High 47-70 [facility] Comment on above: Performed By: #### L 500.2500, L500.3400, L501.5200, L100.0100 ####[facility] [address] [place], [address] Nucleated RBC (Bld) [#/Vol] 0 10*3/uL Normal 0-5 [facility] Comment on above: Performed By: #### L 500.2500, L500.3400, L501.5200, L100.0100 ####[facility] [address] [place], [address] Platelet mean volume (Bld) [Entitic vol] 10.5 fL Normal 6.2-12.0 [facility] Comment on above: Performed By: #### L 500.2500, L500.3400, L501.5200, L100.0100 ####[facility] [address] [place], [address] Platelets (Bld) [#/Vol] 110 10*3/uL Low 150-450 [facility] Comment on above: Performed By: #### L 500.2500, L500.3400, L501.5200, L100.0100 ####[facility] [address] [place], [address] RBC (Bld) [#/Vol] 2.71 10*6/uL Low 4.2-5.4 [facility] Comment on above: Performed By: #### L 500.2500, L500.3400, L501.5200, L100.0100 ####[facility] [address] [place], [address] RDW SD 47.6 fl High 35.1-43.9 [facility] Comment on above: Performed By: #### L 500.2500, L500.3400, L501.5200, L100.0100 ####[facility] [address] [place], [address] WBC (Bld) [#/Vol] 7.2 10*3/uL Normal 4.4-11.0 [facility] Comment on above: Performed By: #### L 500.2500, L500.3400, L501.5200, L100.0100 ####[facility] [address] [place], [address] Liver Profileon 04-29-2025 Albumin [Mass/Vol] 3.2 g/dL Low 3.5-5.0 [facility] Comment on above: Performed By: #### L 500.2500, L500.3400, L501.5200, L100.0100 ####[facility] [address] [place], [address] ALK PHOS 108 U/L High 35-104 [facility] Comment on above: Performed By: #### L 500.2500, L500.3400, L501.5200, L100.0100 ####[facility] [address] [place], [address] ALT [Catalytic activity/Vol] 37 U/L High <=34 [facility] Comment on above: Performed By: #### L 500.2500, L500.3400, L501.5200, L100.0100 ####[facility] [address] [place], [address] AST [Catalytic activity/Vol] 56 U/L High <=31 [facility] Comment on above: Performed By: #### L 500.2500, L500.3400, L501.5200, L100.0100 ####[facility] [address] [place], [address] Bilirubin [Mass/Vol] 0.71 mg/dL Normal 0.00-1.30 [facility] Comment on above: Performed By: #### L 500.2500, L500.3400, L501.5200, L100.0100 ####[facility] [address] [place], [address] Bilirubin.direct [Mass/Vol] 0.43 mg/dL High 0.00-0.30 [facility] Comment on above: Performed By: #### L 500.2500, L500.3400, L501.5200, L100.0100 ####[facility] [address] [place], [address] Globulin (S) [Mass/Vol] 2.4 g/dL Normal 2.2-4.2 [facility] Comment on above: Performed By: #### L 500.2500, L500.3400, L501.5200, L100.0100 ####[facility] [address] [place], [address] T PROT 5.6 g/dL Low 5.9-8.4 [facility] Comment on above: Performed By: #### L 500.2500, L500.3400, L501.5200, L100.0100 ####[facility] [address] [place], [address] Magnesiumon 04-29-2025 Magnesium [Mass/Vol] 1.5 mg/dL Normal 1.5-2.2 [facility] Comment on above: Performed By: #### L 500.2500, L500.3400, L501.5200, L100.0100 ####[facility] [address] [place], [address] Phosphoruson 04-29-2025 Phosphate [Mass/Vol] 2.0 mg/dL Low 2.7-4.5 [facility] Comment on above: Performed By: #### L 501.2300 ####[facility] [address] [place], [address] Basic Metabolic Profile (BMP )on 04-28-2025 BUN/CRE 6.9 RATIO Low 10-20 [facility] Comment on above: Performed By: #### L 500.2500, L500.3400, L501.5200, L501.2450 ####[facility] [address] [place], [address] Calcium [Mass/Vol] 8.3 mg/dL Normal 7.6-11.0 [facility] Comment on above: Performed By: #### L 500.2500, L500.3400, L501.5200, L501.2450 ####[facility] [address] [place], [address] Chloride [Moles/Vol] 100 mmol/L Normal 98-108 [facility] Comment on above: Performed By: #### L 500.2500, L500.3400, L501.5200, L501.2450 ####[facility] [address] [place], [address] CO2 [Moles/Vol] 24.9 mmol/L Normal 21.0-32.0 [facility] Comment on above: Performed By: #### L 500.2500, L500.3400, L501.5200, L501.2450 ####[facility] [address] [place], [address] Creatinine [Mass/Vol] 0.50 mg/dL Low 0.70-1.20 [facility] Comment on above: Performed By: #### L 500.2500, L500.3400, L501.5200, L501.2450 ####[facility] [address] [place], [address] ECRCL 118.82 ml/min Normal 50-250 [facility] Comment on above: Performed By: #### L 500.2500, L500.3400, L501.5200, L501.2450 ####[facility] [address] [place], [address] GAP 12 Normal 5-15 [facility] Comment on above: Performed By: #### L 500.2500, L500.3400, L501.5200, L501.2450 ####[facility] [address] [place], [address] GFR/1.73 sq M.predicted among non-blacks MDRD (S/P/Bld) [Vol rate/Area] 115 mL/min/{1.73_m2} Normal >60 [facility] Comment on above: Result Comment: mL/m in/1.73m2 CKD-EPI Creatinine Equation (2020) Performed By: #### L 500.2500, L500.3400, L501.5200, L501.2450 ####[facility] [address] [place], [address] Glucose [Mass/Vol] 103 mg/dL High 70-99 [facility] Comment on above: Performed By: #### L 500.2500, L500.3400, L501.5200, L501.2450 ####[facility] [address] [place], [address] Potassium [Moles/Vol] 3.2 mmol/L Low 3.3-5.1 [facility] Comment on above: Performed By: #### L 500.2500, L500.3400, L501.5200, L501.2450 ####[facility] [address] [place], [address] Sodium [Moles/Vol] 137 mmol/L Normal 133-145 [facility] Comment on above: Performed By: #### L 500.2500, L500.3400, L501.5200, L501.2450 ####[facility] [address] [place], [address] Urea nitrogen [Mass/Vol] 3 mg/dL Low 4-19 [facility] Comment on above: Performed By: #### L 500.2500, L500.3400, L501.5200, L501.2450 ####[facility] [address] [place], [address] Bedside Glucoseon 04-28-2025 FINGERSTICK GLU 140 mg/dL High 74-106 [facility] Comment on above: Result Comment: CHAUNCEY GEMENT OF PATIENT CARE PER NURSING PROTOCOL Performed By: #### L 501.080 ####[facility] [address] [place], [address] FINGERSTICK GLU 181 mg/dL High 74-106 [facility] Comment on above: Result Comment: CHAUNCEY GEMENT OF PATIENT CARE PER NURSING PROTOCOL Performed By: #### L 501.080 ####[facility] [address] [place], [address] FINGERSTICK GLU 104 mg/dL Normal 74-106 [facility] Comment on above: Result Comment: CHAUNCEY GEMENT OF PATIENT CARE PER NURSING PROTOCOL Performed By: #### L 501.080 ####[facility] [address] [place], [address] CBC W/Diff, Automatedon 05- Absolute Lymph 0.95 X10 3/uL Normal 0.83-4.51 [facility] Comment on above: Performed By: #### L 100.0100, L501.2300 ####[facility] [address] [place], [address] Absolute Neut 5.9 X10 3/uL Normal 2.0-7.7 [facility] Comment on above: Performed By: #### L 100.0100, L501.2300 ####[facility] [address] [place], [address] Basophils/100 WBC (Bld) 0.3 % Normal 0-1 [facility] Comment on above: Performed By: #### L 100.0100, L501.2300 ####[facility] [address] [place], [address] Eosinophils/100 WBC (Bld) 0.8 % Normal 0-5 [facility] Comment on above: Performed By: #### L 100.0100, L501.2300 ####[facility] [address] [place], [address] Erythrocyte distribution width (RBC) [Ratio] 12.2 % Normal 11.6-14.6 [facility] Comment on above: Performed By: #### L 100.0100, L501.2300 ####[facility] [address] [place], [address] Hematocrit (Bld) [Volume fraction] 34.3 % Low 37-47 [facility] Comment on above: Performed By: #### L 100.0100, L501.2300 ####[facility] [address] [place], [address] Hemoglobin (Bld) [Mass/Vol] 11.6 g/dL Low 12.0-15.0 [facility] Comment on above: Performed By: #### L 100.0100, L501.2300 ####[facility] [address] [place], [address] IG% 0.400 Normal 0.0-0.9 [facility] Comment on above: Result Comment: IG% - Immature Granulocytes (promyelocytes, myelocytes andmetamyelocytes) > 1% indicates that a LEFT SHIFT is Present. Performed By: #### L 100.0100, L501.2300 ####[facility] [address] [place], [address] Lymphocytes/100 WBC (Bld) 12.5 % Low 19-41 [facility] Comment on above: Performed By: #### L 100.0100, L501.2300 ####[facility] [address] [place], [address] MCH (RBC) [Entitic mass] 36.4 pg High 27.0-32.0 [facility] Comment on above: Performed By: #### L 100.0100, L501.2300 ####[facility] [address] [place], [address] MCHC (RBC) [Mass/Vol] 33.8 g/dL Normal 32-36 [facility] Comment on above: Performed By: #### L 100.0100, L501.2300 ####[facility] [address] [place], [address] MCV (RBC) [Entitic vol] 107.5 fL High 81-99 [facility] Comment on above: Performed By: #### L 100.0100, L501.2300 ####[facility] [address] [place], [address] Monocytes/100 WBC (Bld) 8.0 % Normal 0-10 [facility] Comment on above: Performed By: #### L 100.0100, L501.2300 ####[facility] [address] [place], [address] Neutrophils/100 WBC (Bld) 78.0 % High 47-70 [facility] Comment on above: Performed By: #### L 100.0100, L501.2300 ####[facility] [address] [place], [address] Nucleated RBC (Bld) [#/Vol] 0 10*3/uL Normal 0-5 [facility] Comment on above: Performed By: #### L 100.0100, L501.2300 ####[facility] [address] [place], [address] Platelet mean volume (Bld) [Entitic vol] 10.3 fL Normal 6.2-12.0 [facility] Comment on above: Performed By: #### L 100.0100, L501.2300 ####[facility] [address] [place], [address] Platelets (Bld) [#/Vol] 119 10*3/uL Low 150-450 [facility] Comment on above: Performed By: #### L 100.0100, L501.2300 ####[facility] [address] [place], [address] RBC (Bld) [#/Vol] 3.19 10*6/uL Low 4.2-5.4 [facility] Comment on above: Performed By: #### L 100.0100, L501.2300 ####[facility] [address] [place], [address] RDW SD 48.2 fl High 35.1-43.9 [facility] Comment on above: Performed By: #### L 100.0100, L501.2300 ####[facility] [address] [place], [address] WBC (Bld) [#/Vol] 7.6 10*3/uL Normal 4.4-11.0 [facility] Comment on above: Performed By: #### L 100.0100, L501.2300 ####[facility] [address] [place], [address] Lipaseon 04-28-2025 Lipase [Catalytic activity/Vol] 533 U/L High 13-75 [facility] Comment on above: Result Comment: Lucie schultz note:LIPASE revised reference range effective 23.New Lipase methodology. Expected to produce lower valuesthan the previous assay method.NEW Reference Range: 13 - 75 U/L Performed By: #### L 500.2500, L500.3400, L501.5200, L501.2450 ####[facility] [address] [place], [address] Lipase measurementOrdered By : Canelo Myers on 04-28-2025 Lipase [Catalytic activity/Vol] 533 U/L High 13-75 [facility] Comment on above: Please note:LIPASE r evised reference range effective 23. New Lipase methodology. Expected to produce lower values than the previous assay method. NEW Reference Range: 13 - 75 U/L Liver Profileon 04-28-2025 Albumin [Mass/Vol] 3.7 g/dL Normal 3.5-5.0 [facility] Comment on above: Performed By: #### L 500.2500, L500.3400, L501.5200, L501.2450 ####[facility] [address] [place], [address] ALK PHOS 158 U/L High 35-104 [facility] Comment on above: Performed By: #### L 500.2500, L500.3400, L501.5200, L501.2450 ####[facility] [address] [place], [address] ALT [Catalytic activity/Vol] 72 U/L High <=34 [facility] Comment on above: Performed By: #### L 500.2500, L500.3400, L501.5200, L501.2450 ####[facility] [address] [place], [address] AST [Catalytic activity/Vol] 265 U/L High <=31 [facility] Comment on above: Performed By: #### L 500.2500, L500.3400, L501.5200, L501.2450 ####[facility] [address] [place], [address] Bilirubin [Mass/Vol] 1.26 mg/dL Normal 0.00-1.30 [facility] Comment on above: Performed By: #### L 500.2500, L500.3400, L501.5200, L501.2450 ####[facility] [address] [place], [address] Bilirubin.direct [Mass/Vol] 0.79 mg/dL High 0.00-0.30 [facility] Comment on above: Performed By: #### L 500.2500, L500.3400, L501.5200, L501.2450 ####[facility] [address] [place], [address] Globulin (S) [Mass/Vol] 2.6 g/dL Normal 2.2-4.2 [facility] Comment on above: Performed By: #### L 500.2500, L500.3400, L501.5200, L501.2450 ####[facility] [address] [place], [address] T PROT 6.3 g/dL Normal 5.9-8.4 [facility] Comment on above: Performed By: #### L 500.2500, L500.3400, L501.5200, L501.2450 ####[facility] [address] [place], [address] Magnesiumon 04-28-2025 Magnesium [Mass/Vol] 1.5 mg/dL Normal 1.5-2.2 [facility] Comment on above: Performed By: #### L 500.2500, L500.3400, L501.5200, L501.2450 ####[facility] [address] [place], [address] Phosphoruson 04-28-2025 Phosphate [Mass/Vol] 1.5 mg/dL Low 2.7-4.5 [facility] Comment on above: Performed By: #### L 100.0100, L501.2300 ####[facility] [address] [place], [address] Basic Metabolic Profile (BMP )on 04-27-2025 BUN/CRE 9.1 RATIO Low 10-20 [facility] Comment on above: Performed By: #### L 300.3900, L500.3400, L501.2300, L501.5200, L501.9520, L500.4050, L500.2500, L100.0100 ####[facility] [address] [place], [address] Calcium [Mass/Vol] 8.0 mg/dL Normal 7.6-11.0 [facility] Comment on above: Performed By: #### L 300.3900, L500.3400, L501.2300, L501.5200, L501.9520, L500.4050, L500.2500, L100.0100 ####[facility] [address] [place], [address] Chloride [Moles/Vol] 96 mmol/L Low 98-108 [facility] Comment on above: Performed By: #### L 300.3900, L500.3400, L501.2300, L501.5200, L501.9520, L500.4050, L500.2500, L100.0100 ####[facility] [address] [place], [address] CO2 [Moles/Vol] 16.0 mmol/L Low 21.0-32.0 [facility] Comment on above: Performed By: #### L 300.3900, L500.3400, L501.2300, L501.5200, L501.9520, L500.4050, L500.2500, L100.0100 ####[facility] [address] [place], [address] Creatinine [Mass/Vol] 0.69 mg/dL Low 0.70-1.20 [facility] Comment on above: Performed By: #### L 300.3900, L500.3400, L501.2300, L501.5200, L501.9520, L500.4050, L500.2500, L100.0100 ####[facility] [address] [place], [address] ECRCL 86.10 ml/min Normal 50-250 [facility] Comment on above: Performed By: #### L 300.3900, L500.3400, L501.2300, L501.5200, L501.9520, L500.4050, L500.2500, L100.0100 ####[facility] [address] [place], [address] GAP 22 High 5-15 [facility] Comment on above: Performed By: #### L 300.3900, L500.3400, L501.2300, L501.5200, L501.9520, L500.4050, L500.2500, L100.0100 ####[facility] [address] [place], [address] GFR/1.73 sq M.predicted among non-blacks MDRD (S/P/Bld) [Vol rate/Area] 107 mL/min/{1.73_m2} Normal >60 [facility] Comment on above: Result Comment: mL/m in/1.73m2 CKD-EPI Creatinine Equation (2020) Performed By: #### L 300.3900, L500.3400, L501.2300, L501.5200, L501.9520, L500.4050, L500.2500, L100.0100 ####[facility] [address] [place], [address] Glucose [Mass/Vol] 132 mg/dL High 70-99 [facility] Comment on above: Performed By: #### L 300.3900, L500.3400, L501.2300, L501.5200, L501.9520, L500.4050, L500.2500, L100.0100 ####[facility] [address] [place], [address] Potassium [Moles/Vol] 3.8 mmol/L Normal 3.3-5.1 [facility] Comment on above: Performed By: #### L 300.3900, L500.3400, L501.2300, L501.5200, L501.9520, L500.4050, L500.2500, L100.0100 ####[facility] [address] [place], [address] Sodium [Moles/Vol] 134 mmol/L Normal 133-145 [facility] Comment on above: Performed By: #### L 300.3900, L500.3400, L501.2300, L501.5200, L501.9520, L500.4050, L500.2500, L100.0100 ####[facility] [address] [place], [address] Urea nitrogen [Mass/Vol] 6 mg/dL Normal 4-19 [facility] Comment on above: Performed By: #### L 300.3900, L500.3400, L501.2300, L501.5200, L501.9520, L500.4050, L500.2500, L100.0100 ####[facility] [address] [place], [address] Bedside Glucoseon 04-27-2025 FINGERSTICK GLU 153 mg/dL High 74-106 [facility] Comment on above: Result Comment: CHAUNCEY GEMENT OF PATIENT CARE PER NURSING PROTOCOL Performed By: #### L 501.080 ####[facility] [address] [place], [address] FINGERSTICK GLU 149 mg/dL High 74-106 [facility] Comment on above: Result Comment: CHAUNCEY GEMENT OF PATIENT CARE PER NURSING PROTOCOL Performed By: #### L 501.080 ####[facility] [address] [place], [address] FINGERSTICK GLU 194 mg/dL High 74-106 [facility] Comment on above: Result Comment: CHAUNCEY GEMENT OF PATIENT CARE PER NURSING PROTOCOL Performed By: #### L 501.080 ####[facility] [address] [place], [address] FINGERSTICK GLU 107 mg/dL High 74-106 [facility] Comment on above: Result Comment: CHAUNCEY GEMENT OF PATIENT CARE PER NURSING PROTOCOL Performed By: #### L 501.080 ####[facility] [address] [place], [address] CBC W/Diff, Automatedon 05-3 0-2024 Absolute Lymph 0.83 X10 3/uL Normal 0.83-4.51 [facility] Comment on above: Performed By: #### L 300.3900, L500.3400, L501.2300, L501.5200, L501.9520, L500.4050, L500.2500, L100.0100 ####[facility] [address] [place], [address] Absolute Neut 9.6 X10 3/uL High 2.0-7.7 [facility] Comment on above: Performed By: #### L 300.3900, L500.3400, L501.2300, L501.5200, L501.9520, L500.4050, L500.2500, L100.0100 ####[facility] [address] [place], [address] Basophils/100 WBC (Bld) 0.3 % Normal 0-1 [facility] Comment on above: Performed By: #### L 300.3900, L500.3400, L501.2300, L501.5200, L501.9520, L500.4050, L500.2500, L100.0100 ####[facility] [address] [place], [address] Eosinophils/100 WBC (Bld) 0.1 % Normal 0-5 [facility] Comment on above: Performed By: #### L 300.3900, L500.3400, L501.2300, L501.5200, L501.9520, L500.4050, L500.2500, L100.0100 ####[facility] [address] [place], [address] Erythrocyte distribution width (RBC) [Ratio] 12.7 % Normal 11.6-14.6 [facility] Comment on above: Performed By: #### L 300.3900, L500.3400, L501.2300, L501.5200, L501.9520, L500.4050, L500.2500, L100.0100 ####[facility] [address] [place], [address]( Hematocrit (Bld) [Volume fraction] 39.2 % Normal 37-47 [facility] Comment on above: Performed By: #### L 300.3900, L500.3400, L501.2300, L501.5200, L501.9520, L500.4050, L500.2500, L100.0100 ####[facility] [address] [place], [address] Hemoglobin (Bld) [Mass/Vol] 13.5 g/dL Normal 12.0-15.0 [facility] Comment on above: Performed By: #### L 300.3900, L500.3400, L501.2300, L501.5200, L501.9520, L500.4050, L500.2500, L100.0100 ####[facility] [address] [place], [address] IG% 0.400 Normal 0.0-0.9 [facility] Comment on above: Result Comment: IG% - Immature Granulocytes (promyelocytes, myelocytes andmetamyelocytes) > 1% indicates that a LEFT SHIFT is Present. Performed By: #### L 300.3900, L500.3400, L501.2300, L501.5200, L501.9520, L500.4050, L500.2500, L100.0100 ####[facility] [address] [place], [address] Lymphocytes/100 WBC (Bld) 7.3 % Low 19-41 [facility] Comment on above: Performed By: #### L 300.3900, L500.3400, L501.2300, L501.5200, L501.9520, L500.4050, L500.2500, L100.0100 ####[facility] [address] [place], [address] MCH (RBC) [Entitic mass] 36.6 pg High 27.0-32.0 [facility] Comment on above: Performed By: #### L 300.3900, L500.3400, L501.2300, L501.5200, L501.9520, L500.4050, L500.2500, L100.0100 ####[facility] [address] [place], [address] MCHC (RBC) [Mass/Vol] 34.4 g/dL Normal 32-36 [facility] Comment on above: Performed By: #### L 300.3900, L500.3400, L501.2300, L501.5200, L501.9520, L500.4050, L500.2500, L100.0100 ####[facility] [address] [place], [address] MCV (RBC) [Entitic vol] 106.2 fL High 81-99 [facility] Comment on above: Performed By: #### L 300.3900, L500.3400, L501.2300, L501.5200, L501.9520, L500.4050, L500.2500, L100.0100 ####[facility] [address] [place], [address] Monocytes/100 WBC (Bld) 7.9 % Normal 0-10 [facility] Comment on above: Performed By: #### L 300.3900, L500.3400, L501.2300, L501.5200, L501.9520, L500.4050, L500.2500, L100.0100 ####[facility] [address] [place], [address] Neutrophils/100 WBC (Bld) 84.0 % High 47-70 [facility] Comment on above: Performed By: #### L 300.3900, L500.3400, L501.2300, L501.5200, L501.9520, L500.4050, L500.2500, L100.0100 ####[facility] [address] [place], [address] Nucleated RBC (Bld) [#/Vol] 0 10*3/uL Normal 0-5 [facility] Comment on above: Performed By: #### L 300.3900, L500.3400, L501.2300, L501.5200, L501.9520, L500.4050, L500.2500, L100.0100 ####[facility] [address], [address] Platelet mean volume (Bld) [Entitic vol] 9.7 fL Normal 6.2-12.0 [facility] Comment on above: Performed By: #### L 300.3900, L500.3400, L501.2300, L501.5200, L501.9520, L500.4050, L500.2500, L100.0100 ####[facility] [address] [place], [address] Platelets (Bld) [#/Vol] 153 10*3/uL Normal 150-450 [facility] Comment on above: Performed By: #### L 300.3900, L500.3400, L501.2300, L501.5200, L501.9520, L500.4050, L500.2500, L100.0100 ####[facility] [address] [place], [place], [phone] RBC (Bld) [#/Vol] 3.69 10*6/uL Low 4.2-5.4 [facility] Comment on above: Performed By: #### L 300.3900, L500.3400, L501.2300, L501.5200, L501.9520, L500.4050, L500.2500, L100.0100 ####[facility] [address] [place], [place], [phone]([phone] RDW SD 49.7 fl High 35.1-43.9 [facility] Comment on above: Performed By: #### L 300.3900, L500.3400, L501.2300, L501.5200, L501.9520, L500.4050, L500.2500, L100.0100 ####[facility] [address] [place], [place], [phone] WBC (Bld) [#/Vol] 11.4 10*3/uL High 4.4-11.0 [facility] Comment on above: Performed By: #### L 300.3900, L500.3400, L501.2300, L501.5200, L501.9520, L500.4050, L500.2500, L100.0100 ####[facility] [address] [place], [address] Comprehensive Metabolic Prof mton 04-27-2025 Albumin/Globulin [Mass ratio] 1.4 {ratio} Normal 0.9-2.4 [facility] Comment on above: Performed By: #### L 300.3900, L500.3400, L501.2300, L501.5200, L501.9520, L500.4050, L500.2500, L100.0100 ####[facility] [address] [place], [place], [id number] Hemoglobin A1con 04-27-2025 HbA1c (Bld) [Mass fraction] 5.6 % Normal <=5.6 [facility] Comment on above: Result Comment: Norm al < 5.7 % Prediabetic 5.7 - 6.4 % Diabetic >or= 6.5 % Please note range changes. Performed By: #### L 501.8254 ####[facility] [address] [place], [place], [id number] Hemoglobin A1c percentageOrd ered By: Julius Moncada on 04-27-2025 HbA1c (Bld) [Mass fraction] 5.6 % <5.7 [facility] Comment on above: Normal < 5.7 % Predi abetic 5.7 - 6.4 % Diabetic >or= 6.5 % Please note range changes. International normalized rat io (INR) calculationOrdered By: Julius Moncada on 04-27-2025 INR Coag (Bld) [Relative time] 1.0 {INR} [facility] Liver Profileon 04-27-2025 Albumin [Mass/Vol] 3.9 g/dL Normal 3.5-5.0 [facility] Comment on above: Performed By: #### L 300.3900, L500.3400, L501.2300, L501.5200, L501.9520, L500.4050, L500.2500, L100.0100 ####[facility] [address] [place], [place], [phone] ALK PHOS 98 U/L Normal 35-104 [facility] Comment on above: Performed By: #### L 300.3900, L500.3400, L501.2300, L501.5200, L501.9520, L500.4050, L500.2500, L100.0100 ####[facility] [address] [place], [place], [id number] ALT [Catalytic activity/Vol] 46 U/L High <=34 [facility] Comment on above: Performed By: #### L 300.3900, L500.3400, L501.2300, L501.5200, L501.9520, L500.4050, L500.2500, L100.0100 ####[facility] [address] [place], [address] AST [Catalytic activity/Vol] 96 U/L High <=31 [facility] Comment on above: Performed By: #### L 300.3900, L500.3400, L501.2300, L501.5200, L501.9520, L500.4050, L500.2500, L100.0100 ####[facility] [address] [place], [address] Bilirubin [Mass/Vol] 0.99 mg/dL Normal 0.00-1.30 [facility] Comment on above: Performed By: #### L 300.3900, L500.3400, L501.2300, L501.5200, L501.9520, L500.4050, L500.2500, L100.0100 ####[facility] [address] [place], [address] Bilirubin.direct [Mass/Vol] 0.54 mg/dL High 0.00-0.30 [facility] Comment on above: Performed By: #### L 300.3900, L500.3400, L501.2300, L501.5200, L501.9520, L500.4050, L500.2500, L100.0100 ####[facility] [address] [place], [address] Globulin (S) [Mass/Vol] 2.7 g/dL Normal 2.2-4.2 [facility] Comment on above: Performed By: #### L 300.3900, L500.3400, L501.2300, L501.5200, L501.9520, L500.4050, L500.2500, L100.0100 ####[facility] [address] [place], [address] T PROT 6.6 g/dL Normal 5.9-8.4 [facility] Comment on above: Performed By: #### L 300.3900, L500.3400, L501.2300, L501.5200, L501.9520, L500.4050, L500.2500, L100.0100 ####[facility] [address] [place], [address] Magnesiumon 04-27-2025 Magnesium [Mass/Vol] 0.9 mg/dL Invalid Interpretation Code 1.5-2.2 [facility] Comment on above: Result Comment: Crit ical Result(s) Called at:04/27/2025-02:13 by: AlMedTera SolutionsRead.??Results read back by same. Performed By: #### L 300.3900, L500.3400, L501.2300, L501.5200, L501.9520, L500.4050, L500.2500, L100.0100 ####[facility] [address] [place], [place], [address] Phosphoruson 04-27-2025 Phosphate [Mass/Vol] 3.3 mg/dL Normal 2.7-4.5 [facility] Comment on above: Performed By: #### L 300.3900, L500.3400, L501.2300, L501.5200, L501.9520, L500.4050, L500.2500, L100.0100 ####[facility] [address] [place], [place], [phone] Prothrombin Time w/INRon INR Coag (PPP) [Relative time] 1.0 {INR} Normal [facility] Comment on above: Performed By: #### L 300.3900, L500.3400, L501.2300, L501.5200, L501.9520, L500.4050, L500.2500, L100.0100 ####[facility] [address] [place], [address] PT Coag (PPP) [Time] 12.9 s Normal 11.7-14.9 [facility] Comment on above: Performed By: #### L 300.3900, L500.3400, L501.2300, L501.5200, L501.9520, L500.4050, L500.2500, L100.0100 ####[facility] [address] [place], [address] Prothrombin timeOrdered By: Julius Moncada on 04-27-2025 PT Coag (PPP) [Time] 12.9 s 11.7-14.9 [facility] TSH DL <= 0.005 mIU/L QnOrde red By: Julius Moncada on 04-27-2025 TSH Qn 4.010 uIU/mL 0.300-4.200 [facility] Comment on above: Previous reported re sult: 3.960 uIU/mLEdited by: BRITTNEY on 04/27/25:0236 AMENDED REPORT 04/27/25235 TSH previously reported as: 3.960 uIU/mL Thyroid Stim Hormone (TSH)on 04-27-2025 TSH 4.010 uIU/mL Normal 0.300-4.200 [facility] Comment on above: Result Comment: AMENDED REPORT 04/27/25235 TSH previously reported as: 3.960 uIU/mL Performed By: #### L 300.3900, L500.3400, L501.2300, L501.5200, L501.9520, L500.4050, L500.2500, L100.0100 ####[facility] [address] [place], [place], [id number] Abdomen/Pelvis W IV Cont ONL Yon 04-26-2025 Abdomen/Pelvis W IV Cont ONLY Normal [facility] Absolute lymphocyte countOrd ered By: Humphrey Garcia on 04-26-2025 Lymphocytes Auto (Unsp spec) [#/Vol] 0.76 10*3/uL Low 0.83-4.51 [facility] Absolute neutrophil countOrd ered By: Humphrey Garcia on 04-26-2025 Neutrophils (Bld) [#/Vol] 8.8 10*3/uL High 2.0-7.7 [facility] Alcohol, Blood (Medical)-Ser umon 04-26-2025 SERUM ETOH < 10.1 Normal <=10.0 [facility] Comment on above: Result Comment: This test is for medical purposes only. The legaldefinition of intoxication varies according to local law. Performed By: #### L 501.9100 ####[facility] [address] [place], [address] Anion gap in Serum or Plasma Ordered By: Humphrey Garcia on 04-26-2025 Anion gap [Moles/Vol] 36 mmol/L High 5-15 [facility] Automated lymphocyte count a s percentage of total leukocytesOrdered By: Humphrey Garcia on 04-26-2025 Lymphocytes/100 WBC Auto (Unsp spec) 7.3 % Low 19-41 [facility] BUN/creatinine ratioOrdered By: Humphrey Garcia on 04-26-2025 Urea nitrogen/Creatinine [Mass ratio] 11.2 mg/mg 10-20 [facility] Basophil percentageOrdered B y: Humphrey Garcia on 04-26-2025 Basophils/100 WBC (Bld) 0.4 % 0-1 [facility] Bilirubin Test strip Ql (U)O rdered By: Humphrey Garcia on 04-26-2025 Bilirubin Ql (U) Negative Negative [facility] Bilirubin, totalOrdered By: Humphrey Garcia on 04-26-2025 Bilirubin [Mass/Vol] 1.42 mg/dL High 0.00-1.30 [facility] CBC W/Diff, Automatedon 03-30 Absolute Lymph 0.76 X10 3/uL Low 0.83-4.51 [facility] Comment on above: Performed By: #### L 501.2450, L500.4050, L100.0100 ####[facility] [address] [place], [address] Absolute Neut 8.8 X10 3/uL High 2.0-7.7 [facility] Comment on above: Performed By: #### L 501.2450, L500.4050, L100.0100 ####[facility] [address] [place], [address] Basophils/100 WBC (Bld) 0.4 % Normal 0-1 [facility] Comment on above: Performed By: #### L 501.2450, L500.4050, L100.0100 ####[facility] [address] [place], [address] Eosinophils/100 WBC (Bld) 0.0 % Normal 0-5 [facility] Comment on above: Performed By: #### L 501.2450, L500.4050, L100.0100 ####[facility] [address] [place], [address] Erythrocyte distribution width (RBC) [Ratio] 12.8 % Normal 11.6-14.6 [facility] Comment on above: Performed By: #### L 501.2450, L500.4050, L100.0100 ####[facility] [address] [place], [address] Hematocrit (Bld) [Volume fraction] 42.8 % Normal 37-47 [facility] Comment on above: Performed By: #### L 501.2450, L500.4050, L100.0100 ####[facility] [address] [place], [address] Hemoglobin (Bld) [Mass/Vol] 14.8 g/dL Normal 12.0-15.0 [facility] Comment on above: Performed By: #### L 501.2450, L500.4050, L100.0100 ####[facility] [address] [place], [address] IG% 0.700 Normal 0.0-0.9 [facility] Comment on above: Result Comment: IG% - Immature Granulocytes (promyelocytes, myelocytes andmetamyelocytes) > 1% indicates that a LEFT SHIFT is Present. Performed By: #### L 501.2450, L500.4050, L100.0100 ####[facility] [address] [place], [address] Lymphocytes/100 WBC (Bld) 7.3 % Low 19-41 [facility] Comment on above: Performed By: #### L 501.2450, L500.4050, L100.0100 ####[facility] [address] [place], [address] MCH (RBC) [Entitic mass] 36.2 pg High 27.0-32.0 [facility] Comment on above: Performed By: #### L 501.2450, L500.4050, L100.0100 ####[facility] [address] [place], [address] MCHC (RBC) [Mass/Vol] 34.6 g/dL Normal 32-36 [facility] Comment on above: Performed By: #### L 501.2450, L500.4050, L100.0100 ####[facility] [address] [place], [address] MCV (RBC) [Entitic vol] 104.6 fL High 81-99 [facility] Comment on above: Performed By: #### L 501.2450, L500.4050, L100.0100 ####[facility] [address] [place], [address] Monocytes/100 WBC (Bld) 7.0 % Normal 0-10 [facility] Comment on above: Performed By: #### L 501.2450, L500.4050, L100.0100 ####[facility] [address] [place], [address] Neutrophils/100 WBC (Bld) 84.6 % High 47-70 [facility] Comment on above: Performed By: #### L 501.2450, L500.4050, L100.0100 ####[facility] [address] [place], [address] Nucleated RBC (Bld) [#/Vol] 0.2 10*3/uL Normal 0-5 [facility] Comment on above: Performed By: #### L 501.2450, L500.4050, L100.0100 ####[facility] [address] [place], [address] Platelet mean volume (Bld) [Entitic vol] 10.0 fL Normal 6.2-12.0 [facility] Comment on above: Performed By: #### L 501.2450, L500.4050, L100.0100 ####[facility] [address] [place], [address] Platelets (Bld) [#/Vol] 175 10*3/uL Normal 150-450 [facility] Comment on above: Performed By: #### L 501.2450, L500.4050, L100.0100 ####[facility] [address] [place], [address] RBC (Bld) [#/Vol] 4.09 10*6/uL Low 4.2-5.4 [facility] Comment on above: Performed By: #### L 501.2450, L500.4050, L100.0100 ####[facility] [address] [place], [address] RDW SD 49.4 fl High 35.1-43.9 [facility] Comment on above: Performed By: #### L 501.2450, L500.4050, L100.0100 ####[facility] [address] [place], [address] WBC (Bld) [#/Vol] 10.4 10*3/uL Normal 4.4-11.0 [facility] Comment on above: Performed By: #### L 501.2450, L500.4050, L100.0100 ####[facility] [address] [place], [address] Carbon dioxide, total [Moles /volume] in Central venous bloodOrdered By: Humphrey Garcia on 04-26-2025 CO2 [Moles/Vol] 16.4 mmol/L Low 21.0-32.0 [facility] Chloride assayOrdered By: Edison Garcia on 04-26-2025 Chloride [Moles/Vol] 87 mmol/L Low 98-108 [facility] Comprehensive Metabolic Prof ilon 04-26-2025 Albumin [Mass/Vol] 4.5 g/dL Normal 3.5-5.0 [facility] Comment on above: Performed By: #### L 501.2450, L500.4050, L100.0100 ####[facility] [address] [place], [address] Albumin/Globulin [Mass ratio] 1.4 {ratio} Normal 0.9-2.4 [facility] Comment on above: Performed By: #### L 501.2450, L500.4050, L100.0100 ####[facility] [address] [place], [address] ALK PHOS 122 U/L High 35-104 [facility] Comment on above: Performed By: #### L 501.2450, L500.4050, L100.0100 ####[facility] [address] [place], [address] ALT [Catalytic activity/Vol] 62 U/L High <=34 [facility] Comment on above: Performed By: #### L 501.2450, L500.4050, L100.0100 ####[facility] [address] [place], [address] AST [Catalytic activity/Vol] 127 U/L High <=31 [facility] Comment on above: Performed By: #### L 501.2450, L500.4050, L100.0100 ####[facility] [address] [place], [address] Bilirubin [Mass/Vol] 1.42 mg/dL High 0.00-1.30 [facility] Comment on above: Performed By: #### L 501.2450, L500.4050, L100.0100 ####[facility] [address] [place], [address] BUN/CRE 11.2 RATIO Normal 10-20 [facility] Comment on above: Performed By: #### L 501.2450, L500.4050, L100.0100 ####[facility] [address] [place], [address] Calcium [Mass/Vol] 8.9 mg/dL Normal 7.6-11.0 [facility] Comment on above: Performed By: #### L 501.2450, L500.4050, L100.0100 ####[facility] [address] [place], [address] Chloride [Moles/Vol] 87 mmol/L Low 98-108 [facility] Comment on above: Performed By: #### L 501.2450, L500.4050, L100.0100 ####[facility] [address] [place], [address] CO2 [Moles/Vol] 16.4 mmol/L Low 21.0-32.0 [facility] Comment on above: Performed By: #### L 501.2450, L500.4050, L100.0100 ####[facility] [address] [place], [address] Creatinine [Mass/Vol] 0.70 mg/dL Normal 0.70-1.20 [facility] Comment on above: Performed By: #### L 501.2450, L500.4050, L100.0100 ####[facility] [address] [place], [address] ECRCL 84.87 ml/min Normal 50-250 [facility] Comment on above: Performed By: #### L 501.2450, [id number], L100.0100 ####[facility] [address] [place], [address] GAP 36 High 5-15 [facility] Comment on above: Performed By: #### L 501.2450, L500.4050, L100.0100 ####[facility] [address] [place], [address] GFR/1.73 sq M.predicted among non-blacks MDRD (S/P/Bld) [Vol rate/Area] 107 mL/min/{1.73_m2} Normal >60 [facility] Comment on above: Result Comment: mL/m in/1.73m2 CKD-EPI Creatinine Equation (2020) Performed By: #### L 501.2450, L500.4050, L100.0100 ####[facility] [address] [place], [address] Globulin (S) [Mass/Vol] 3.2 g/dL Normal 2.2-4.2 [facility] Comment on above: Performed By: #### L 501.2450, L500.4050, L100.0100 ####[facility] [address] [place], [address] Glucose [Mass/Vol] 156 mg/dL High 70-99 [facility] Comment on above: Performed By: #### L 501.2450, L500.4050, L100.0100 ####[facility] [address] [place], [address] Potassium [Moles/Vol] 2.8 mmol/L Low 3.3-5.1 [facility] Comment on above: Performed By: #### L 501.2450, L500.4050, L100.0100 ####[facility] [address] [place], [address] Sodium [Moles/Vol] 139 mmol/L Normal 133-145 [facility] Comment on above: Performed By: #### L 501.2450, L500.4050, L100.0100 ####[facility] [address] [place], [address] T PROT 7.7 g/dL Normal 5.9-8.4 [facility] Comment on above: Performed By: #### L 501.2450, L500.4050, L100.0100 ####[facility] [address] [place], [address] Urea nitrogen [Mass/Vol] 8 mg/dL Normal 4-19 [facility] Comment on above: Performed By: #### L 501.2450, L500.4050, L100.0100 ####[facility] [address] [place], [address] Emergency Department Summary on 04-26-2025 Emergency Department Summary Normal [facility] Eosinophil percentageOrdered By: Humphrey Garcia on 04-26-2025 Eosinophils/100 WBC (Bld) 0.0 % 0-5 [facility] Erythrocyte distribution wid th ratioOrdered By: Humphrey Garcia on 04-26-2025 Erythrocyte distribution width (RBC) [Ratio] 12.8 % 11.6-14.6 [facility] Erythrocyte distribution wid th standard deviationOrdered By: Humphrey Garcia on 04-26-2025 Erythrocyte distribution width (RBC) [Ratio] 49.4 fl High 35.1-43.9 [facility] Glomerular filtration rate ( GFR) estimation/1.73 sq m using serum, plasma, or whole bOrdered By: Humphrey Garcia on 04-26-2025 GFR/1.73 sq M.predicted among non-blacks MDRD (S/P/Bld) [Vol rate/Area] 107 mL/min/{1.73_m2} >60 [facility] Comment on above: mL/min/1.73m2 CKD-EP I Creatinine Equation (2020) H AND P Exam - [facility] 04-26-2025 H&P Exam - Hospitalist [facility] Hematocrit Auto (Bld) [Volum e fraction]Ordered By: Humphrey Garcia on 04-26-2025 Hematocrit (Bld) [Volume fraction] 42.8 % 37-47 [facility] Hemoglobin measurementOrdere d By: Humphrey Garcia on 04-26-2025 Hemoglobin (Bld) [Mass/Vol] 14.8 g/dL 12.0-15.0 [facility] Immature granulocytes/100 WB C Auto (Bld)Ordered By: Humphrey Garcia on 04-26-2025 Immature granulocytes/100 WBC (Bld) 0.700 % 0.0-0.9 [facility] Comment on above: IG% - Immature Granu locytes (promyelocytes, myelocytes and metamyelocytes) > 1% indicates that a LEFT SHIFT is Present. Ketones Test strip Ql (U)Ord ered By: Humphrey Garcia on 04-26-2025 Ketones Ql (U) 150 mg/dl Negative [facility] Comment on above: CRITICAL VALUE *HCRI TICAL VALUE CALLED TO [id number]/29/25 1638 Angelita Herzog.RESULTS READ BACK BY SAME. Laboratory - Chemistry and C hemistry - challengeOrdered By: Humphrey Garcia on 04-26-2025 AST [Catalytic activity/Vol] 127 U/L High <32 [facility] Lipaseon 04-26-2025 Lipase [Catalytic activity/Vol] 1045 U/L High 13-75 [facility] Comment on above: Result Comment: Plea se note:LIPASE revised reference range effective 23.New Lipase methodology. Expected to produce lower valuesthan the previous assay method.NEW Reference Range: 13 - 75 U/L Performed By: #### L 501.2450, L500.4050, L100.0100 ####[facility] [address] [place], [address] Lipase measurementOrdered By : Humphrey Garcia on 04-26-2025 Lipase [Catalytic activity/Vol] 1045 U/L High 13-75 [facility] Comment on above: Please note:LIPASE r evised reference range effective 23. New Lipase methodology. Expected to produce lower values than the previous assay method. NEW Reference Range: 13 - 75 U/L MCV (mean corpuscular volume ) determinationOrdered By: Humphrey Garcia on 04-26-2025 MCV (RBC) [Entitic vol] 104.6 fL High 81-99 [facility] Mean corpuscular hemoglobin (MCH) determinationOrdered By: Humphrey Garcia on 04-26-2025 MCH (RBC) [Entitic mass] 36.2 pg High 27.0-32.0 [facility] Mean corpuscular hemoglobin concentration (MCHC) determinationOrdered By: Humphrey Garcia on 04-26-2025 MCHC (RBC) [Mass/Vol] 34.6 g/dL 32-36 [facility] Mean platelet volume determi nationOrdered By: Humphrey Garcia on 04-26-2025 Platelet mean volume (Bld) [Entitic vol] 10.0 fL 6.2-12.0 [facility] Microscopic analysis of urin e for red blood cells (RBC)Ordered By: Humphrey Garcia on 04-26-2025 Microscopic analysis of urine for red blood cells (RBC) 0-5 SEEN /hpf 0-5 [facility] Monocyte percentageOrdered B y: Humphrey Garcia on 04-26-2025 Monocytes/100 WBC (Bld) 7.0 % 0-10 [facility] Mucus LM Ql (Urine sed)Order ed By: Humphrey Garcia on 04-26-2025 Mucus Ql (Urine sed) 0 SEEN /hpf [facility] Neutrophil percentageOrdered By: Humphrey Garcia on 04-26-2025 Neutrophils/100 WBC (Bld) 84.6 % High 47-70 [facility] Nitrite Test strip Ql (U)Ord ered By: Humphrey Garcia on 04-26-2025 Nitrite Ql (U) Negative Negative [facility] Nucleated red blood cell per centageOrdered By: Humphrey Garcia on 04-26-2025 Nucleated RBC/100 WBC (Bld) [Ratio] 0.2 % 0-5 [facility] Platelet countOrdered By: Edison Garcia on 04-26-2025 Platelets (Bld) [#/Vol] 175 10*3/uL 150-450 [facility] Potassium measurement (mass/ volume)Ordered By: Humphrey Garcia on 04-26-2025 Potassium (Unsp spec) [Mass/Vol] 2.8 mmol/L Low 3.3-5.1 [facility] Protein Test strip Ql (U)Ord ered By: Humphrey Garcia on 04-26-2025 Protein Ql (U) 30 mg/dl High Negative [facility] Prothrombin Time w/INRon INR Coag (PPP) [Relative time] 1.0 {INR} Normal [facility] Comment on above: Performed By: #### L 300.3900 ####[facility] [address] [place], [place], [id number] PT Coag (PPP) [Time] 13.3 s Normal 11.7-14.9 [facility] Comment on above: Performed By: #### L 300.3900 ####[facility] [address] [place], [place], [id number] RBC Auto (Bld) [#/Vol]Ordere d By: Humphrey Garcia on 04-26-2025 RBC (Bld) [#/Vol] 4.09 10*6/uL Low 4.2-5.4 [facility] Serum creatinine measurement (mass/volume)Ordered By: Humphrey Garcia on 04-26-2025 Creatinine [Mass/Vol] 0.70 mg/dL 0.70-1.20 [facility] Serum globulin measurementOr dered By: Humphrey Garcia on 05-29-2025 Globulin (S) [Mass/Vol] 3.2 g/dL 2.2-4.2 [facility] Serum glucose measurement (m ass/volume)Ordered By: Humphrey Garcia on 04-26-2025 Glucose [Mass/Vol] 156 mg/dL High 70-99 [facility] Serum or plasma alanine wilkerson otransferase (ALT) measurementOrdered By: Humphrey Garcia on 04-26-2025 ALT [Catalytic activity/Vol] 62 U/L High <35 [facility] Serum or plasma albumin alphonso urement (mass/volume)Ordered By: Humphrey Garcia on 04-26-2025 Albumin [Mass/Vol] 4.5 g/dL 3.5-5.0 [facility] Serum or plasma albumin/glob ulin mass ratioOrdered By: Humphrey Garcia on 04-26-2025 Albumin/Globulin [Mass ratio] 1.4 {ratio} 0.9-2.4 [facility] Serum or plasma alkaline trinity sphatase measurementOrdered By: Humphrey Garcia on 04-26-2025 ALP [Catalytic activity/Vol] 122 U/L High 35-104 [facility] Serum or plasma calcium alphonso urement (mass/volume)Ordered By: Humphrey Garcia on 04-26-2025 Calcium [Mass/Vol] 8.9 mg/dL 7.6-11.0 [facility] Serum or plasma ethanol alphonso urement (mass/volume)Ordered By: Humphrey Garcia on 04-26-2025 Ethanol [Mass/Vol] mg/dL <10.1 [facility] Comment on above: This test is for med ical purposes only. The legal definition of intoxication varies according to local law. Serum or plasma urea nitroge n measurement (mass/volume)Ordered By: Humphrey Garcia on 04-26-2025 Urea nitrogen [Mass/Vol] 8 mg/dL 4-19 [facility] Sodium levelOrdered By: Scout Garcia on 04-26-2025 Sodium [Moles/Vol] 139 mmol/L 133-145 [facility] Squamous epithelial cells de tection in urine sediment by light microscopyOrdered By: Humphrey Garcia on 04-26-2025 Epithelial cells.squamous LM Ql (Urine sed) 0-5 SEEN /hpf 5-10 [facility] Total proteinOrdered By: Carin Garcia on 04-26-2025 Protein [Mass/Vol] 7.7 g/dL 5.9-8.4 [facility] Urinalysis, Completeon 04-26 EPI,SQUAMOUS 0-5 SEEN Normal 5-10 [facility] Comment on above: Order Comment: CLEAN CATCH Performed By: #### L 400.0001 ####[facility] [address] [place], [address] RBC 0-5 SEEN Normal 0-5 [facility] Comment on above: Order Comment: CLEAN CATCH Performed By: #### L 400.0001 ####[facility] [address] [place], [address] BACTERIA 0 SEEN Normal None Seen [facility] Comment on above: Order Comment: CLEAN CATCH Performed By: #### L 400.0001 ####[facility] [address] [place], [address] Mucus Ql (Urine sed) 0 SEEN Normal [facility] Comment on above: Order Comment: CLEAN CATCH Performed By: #### L 400.0001 ####[facility] [address] [place], [address] WBC 0 SEEN Normal 0-5 [facility] Comment on above: Order Comment: CLEAN CATCH Performed By: #### L 400.0001 ####[facility] [address] [place], [address] Urine clarityOrdered By: Carin Garcia on 04-26-2025 Clarity (U) Clear Clear [facility] Urine color determinationOrd ered By: Humphrey Garcia on 04-26-2025 Color (U) Yellow Yellow [facility] Urine glucose detectionOrder ed By: Humphrey Garcia on 04-26-2025 Glucose Ql (U) 1000 mg/dl High Normal [facility] Urine leukocyte esterase det ection by dipstickOrdered By: Humphrey Garcia on 04-26-2025 Leukocyte esterase Test strip Ql (U) Negative Negative [facility] Urine pHOrdered By: Humphrey Juarez nder on 04-26-2025 pH (U) 6.0 [pH] 5.0 - 8.0 [facility] Urine sediment bacteria coun t by microscopy (number/high power field)Ordered By: Humphrey Garcia on 04-26-2025 Bacteria LM.HPF (Urine sed) [#/Area] 0 /[HPF] None Seen [facility] Urine specific gravity measu rementOrdered By: Humphrey Garcia on 04-26-2025 Specific gravity (U) [Rel density] 1.010 1.002-1.030 [facility] Urine urobilinogen measureme ntOrdered By: Humphrey Garcia on 04-26-2025 Urobilinogen Ql (U) 1 mg/dl High Normal [facility] White blood cell (WBC) count Ordered By: Humphrey Garcia on 04-26-2025 WBC (Bld) [#/Vol] 10.4 10*3/uL 4.4-11.0 [facility] White blood cell countOrdere d By: Humphrey Garcia on 04-26-2025 White blood cell count 0 SEEN /hpf 0-5 [facility] 12 Lead EKGon 04-11-2025 12 Lead EKG Normal [facility] Absolute lymphocyte countOrd ered By: Francisco Colon on 04-11-2025 Lymphocytes Auto (Unsp spec) [#/Vol] 2.10 10*3/uL 0.83-4.51 [facility] Absolute neutrophil countOrd ered By: Francisco Colon on 04-11-2025 Neutrophils (Bld) [#/Vol] 2.1 10*3/uL 2.0-7.7 [facility] Alcohol, Blood (Medical)-Ser umon 04-11-2025 SERUM ETOH 328.0 mg/dL Invalid Interpretation Code <=10.0 [facility] Comment on above: Result Comment: Crit ical Result(s) Called at:2346 by: LUISITO VELASQUEZN TO LELANDAL??Results read back by same.This test is for medical purposes only. The legaldefinition of intoxication varies according to local law. Performed By: #### L 501.4021, L100.0100, L500.2500, L501.9100, L501.2450 ####[facility] [address] [place], [address] Anion gap in Serum or Plasma Ordered By: Francisco Colon on 04-11-2025 Anion gap [Moles/Vol] 16 mmol/L High 5-15 [facility] Automated lymphocyte count a s percentage of total leukocytesOrdered By: Francisco Colon on 04-11-2025 Lymphocytes/100 WBC Auto (Unsp spec) 42.0 % High [facility] BUN/creatinine ratioOrdered By: Francisco Colon on 04-11-2025 Urea nitrogen/Creatinine [Mass ratio] 20.2 mg/mg High 09-17 [facility] Basic Metabolic Profile (BMP )on 04-11-2025 BUN/CRE 20.2 RATIO High 09-17 [facility] Comment on above: Performed By: #### L 501.4021, L100.0100, L500.2500, L501.9100, L501.2450 ####[facility] [address] [place], [address] Calcium [Mass/Vol] 8.8 mg/dL Normal 7.6-11.0 [facility] Comment on above: Performed By: #### L 501.4021, L100.0100, L500.2500, L501.9100, L501.2450 ####[facility] [address] [place], [address] Chloride [Moles/Vol] 100 mmol/L Normal 98-108 [facility] Comment on above: Performed By: #### L 501.4021, L100.0100, L500.2500, L501.9100, L501.2450 ####[facility] [address] [place], [address] CO2 [Moles/Vol] 28.2 mmol/L Normal 21.0-32.0 [facility] Comment on above: Performed By: #### L 501.4021, L100.0100, L500.2500, L501.9100, L501.2450 ####[facility] [address] [place], [address] Creatinine [Mass/Vol] 0.53 mg/dL Low 0.70-1.20 [facility] Comment on above: Performed By: #### L 501.4021, L100.0100, L500.2500, L501.9100, L501.2450 ####[facility] [address] [place], [address] ECRCL 112.09 ml/min Normal 50-250 [facility] Comment on above: Performed By: #### L 501.4021, L100.0100, L500.2500, L501.9100, L501.2450 ####[facility] [address] [place], [address] GAP 16 High 5-15 [facility] Comment on above: Performed By: #### L 501.4021, L100.0100, L500.2500, L501.9100, L501.2450 ####[facility] [address] [place], [address] GFR/1.73 sq M.predicted among non-blacks MDRD (S/P/Bld) [Vol rate/Area] 114 mL/min/{1.73_m2} Normal >60 [facility] Comment on above: Result Comment: mL/m in/1.73m2 CKD-EPI Creatinine Equation (2020) Performed By: #### L 501.4021, L100.0100, L500.2500, L501.9100, L501.2450 ####[facility] [address] [place], [address] Glucose [Mass/Vol] 131 mg/dL High 70-99 [facility] Comment on above: Performed By: #### L 501.4021, L100.0100, L500.2500, L501.9100, L501.2450 ####[facility] [address] [place], [address] Potassium [Moles/Vol] 3.2 mmol/L Low 3.3-5.1 [facility] Comment on above: Performed By: #### L 501.4021, L100.0100, L500.2500, L501.9100, L501.2450 ####[facility] [address] [place], [address] Sodium [Moles/Vol] 144 mmol/L Normal 133-145 [facility] Comment on above: Performed By: #### L 501.4021, L100.0100, L500.2500, L501.9100, L501.2450 ####[facility] [address] [place], [address] Urea nitrogen [Mass/Vol] 11 mg/dL Normal 4-19 [facility] Comment on above: Performed By: #### L 501.4021, L100.0100, L500.2500, L501.9100, L501.2450 ####[facility] [address] [place], [address] Basophil percentageOrdered B y: Francisco Colon on 04-11-2025 Basophils/100 WBC (Bld) 1.2 % High 0-1 [facility] Bilirubin Test strip Ql (U)O rdered By: Francisco Colon on 04-11-2025 Bilirubin Ql (U) Negative Negative [facility] CBC W/Diff, Automatedon 03-29 Absolute Lymph 2.10 X10 3/uL Normal 0.83-4.51 [facility] Comment on above: Performed By: #### L 501.4021, L100.0100, L500.2500, L501.9100, L501.2450 ####[facility] [address] [place], [address] Absolute Neut 2.1 X10 3/uL Normal 2.0-7.7 [facility] Comment on above: Performed By: #### L 501.4021, L100.0100, L500.2500, L501.9100, L501.2450 ####[facility] [address] [place], [address] Basophils/100 WBC (Bld) 1.2 % High 0-1 [facility] Comment on above: Performed By: #### L 501.4021, L100.0100, L500.2500, L501.9100, L501.2450 ####[facility] [address] [place], [address] Eosinophils/100 WBC (Bld) 0.8 % Normal 0-5 [facility] Comment on above: Performed By: #### L 501.4021, L100.0100, L500.2500, L501.9100, L501.2450 ####[facility] [address] [place], [address] Erythrocyte distribution width (RBC) [Ratio] 13.5 % Normal 11.6-14.6 [facility] Comment on above: Performed By: #### L 501.4021, L100.0100, L500.2500, L501.9100, L501.2450 ####[facility] [address] [place], [address] Hematocrit (Bld) [Volume fraction] 37.7 % Normal 37-47 [facility] Comment on above: Performed By: #### L 501.4021, L100.0100, L500.2500, L501.9100, L501.2450 ####[facility] [address] [place], [address] Hemoglobin (Bld) [Mass/Vol] 13.5 g/dL Normal 12.0-15.0 [facility] Comment on above: Performed By: #### L 501.4021, L100.0100, L500.2500, L501.9100, L501.2450 ####[facility] [address] [place], [address] IG% 0.200 Normal 0.0-0.9 [facility] Comment on above: Result Comment: IG% - Immature Granulocytes (promyelocytes, myelocytes andmetamyelocytes) > 1% indicates that a LEFT SHIFT is Present. Performed By: #### L 501.4021, L100.0100, L500.2500, L501.9100, L501.2450 ####[facility] [address] [place], [address] Lymphocytes/100 WBC (Bld) 42.0 % High 19-41 [facility] Comment on above: Performed By: #### L 501.4021, L100.0100, L500.2500, L501.9100, L501.2450 ####[facility] [address] [place], [address] MCH (RBC) [Entitic mass] 37.4 pg High 27.0-32.0 [facility] Comment on above: Performed By: #### L 501.4021, L100.0100, L500.2500, L501.9100, L501.2450 ####[facility] [address] [place], [address] MCHC (RBC) [Mass/Vol] 35.8 g/dL Normal 32-36 [facility] Comment on above: Performed By: #### L 501.4021, L100.0100, L500.2500, L501.9100, L501.2450 ####[facility] [address] [place], [address] MCV (RBC) [Entitic vol] 104.4 fL High 81-99 [facility] Comment on above: Performed By: #### L 501.4021, L100.0100, L500.2500, L501.9100, L501.2450 ####[facility] [address] [place], [address] Monocytes/100 WBC (Bld) 13.2 % High 0-10 [facility] Comment on above: Performed By: #### L 501.4021, L100.0100, L500.2500, L501.9100, L501.2450 ####[facility] [address] [place], [address] Neutrophils/100 WBC (Bld) 42.6 % Low 47-70 [facility] Comment on above: Performed By: #### L 501.4021, L100.0100, L500.2500, L501.9100, L501.2450 ####[facility] [address] [place], [address] Nucleated RBC (Bld) [#/Vol] 0.4 10*3/uL Normal 0-5 [facility] Comment on above: Performed By: #### L 501.4021, L100.0100, L500.2500, L501.9100, L501.2450 ####[facility] [address] [place], [address] Platelet mean volume (Bld) [Entitic vol] 9.6 fL Normal 6.2-12.0 [facility] Comment on above: Performed By: #### L 501.4021, L100.0100, L500.2500, L501.9100, L501.2450 ####[facility] [address] [place], [address] Platelets (Bld) [#/Vol] 246 10*3/uL Normal 150-450 [facility] Comment on above: Performed By: #### L 501.4021, L100.0100, L500.2500, L501.9100, L501.2450 ####[facility] [address] [place], [address] RBC (Bld) [#/Vol] 3.61 10*6/uL Low 4.2-5.4 [facility] Comment on above: Performed By: #### L 501.4021, L100.0100, L500.2500, L501.9100, L501.2450 ####[facility] [address] [place], [address] RDW SD 51.4 fl High 35.1-43.9 [facility] Comment on above: Performed By: #### L 501.4021, L100.0100, L500.2500, L501.9100, L501.2450 ####[facility] [address] [place], [address] WBC (Bld) [#/Vol] 5.0 10*3/uL Normal 4.4-11.0 [facility] Comment on above: Performed By: #### L 501.4021, L100.0100, L500.2500, L501.9100, L501.2450 ####[facility] [address] [place], [address] Carbon dioxide, total [Moles /volume] in Central venous bloodOrdered By: Francisco Colon on 04-11-2025 CO2 [Moles/Vol] 28.2 mmol/L 21.0-32.0 [facility] Chest PA and Lateralon 04-11 Chest PA and Lateral Normal [facility] Chloride assayOrdered By: Peyman Colon on 04-11-2025 Chloride [Moles/Vol] 100 mmol/L 98-108 [facility] Emergency Department Summary on 04-11-2025 Emergency Department Summary Normal [facility] Eosinophil percentageOrdered By: Francisco Colon on 04-11-2025 Eosinophils/100 WBC (Bld) 0.8 % 0-5 [facility] Erythrocyte distribution wid th ratioOrdered By: Francisco Colon on 04-11-2025 Erythrocyte distribution width (RBC) [Ratio] 13.5 % 11.6-14.6 [facility] Erythrocyte distribution wid th standard deviationOrdered By: Francisco Colon on 04-11-2025 Erythrocyte distribution width (RBC) [Ratio] 51.4 fl High 35.1-43.9 [facility] Glomerular filtration rate ( GFR) estimation/1.73 sq m using serum, plasma, or whole bOrdered By: Francisco Colon on 04-11-2025 GFR/1.73 sq M.predicted among non-blacks MDRD (S/P/Bld) [Vol rate/Area] 114 mL/min/{1.73_m2} >60 [facility] Comment on above: mL/min/1.73m2 CKD-EP I Creatinine Equation (2020) Hematocrit Auto (Bld) [Volum e fraction]Ordered By: Francisco Colon on 04-11-2025 Hematocrit (Bld) [Volume fraction] 37.7 % 37-47 [facility] Hemoglobin measurementOrdere d By: Francisco Colon on 04-11-2025 Hemoglobin (Bld) [Mass/Vol] 13.5 g/dL 12.0-15.0 [facility] Immature granulocytes/100 WB C Auto (Bld)Ordered By: Francisco Colon on 04-11-2025 Immature granulocytes/100 WBC (Bld) 0.200 % 0.0-0.9 [facility] Comment on above: IG% - Immature Granu locytes (promyelocytes, myelocytes and metamyelocytes) > 1% indicates that a LEFT SHIFT is Present. Ketones Test strip Ql (U)Ord ered By: Francisco Colon on 04-11-2025 Ketones Ql (U) Negative Negative [facility] L501.4021on 04-11-2025 Trop T High Sen < 6 Normal <=14 [facility] Comment on above: Performed By: #### L 501.4021, L100.0100, L500.2500, L501.9100, L501.2450 ####[facility] [address] [place], [address] Lipaseon 04-11-2025 Lipase [Catalytic activity/Vol] 70 U/L Normal 13-75 [facility] Comment on above: Result Comment: Pledaysi se note:LIPASE revised reference range effective 23.New Lipase methodology. Expected to produce lower valuesthan the previous assay method.NEW Reference Range: 13 - 75 U/L Performed By: #### L 501.4021, L100.0100, L500.2500, L501.9100, L501.2450 ####[facility] [address] [place], [address] Lipase measurementOrdered By : Francisco Colon on 04-11-2025 Lipase [Catalytic activity/Vol] 70 U/L 13-75 [facility] Comment on above: Please note:LIPASE r evised reference range effective 23. New Lipase methodology. Expected to produce lower values than the previous assay method. NEW Reference Range: 13 - 75 U/L MCV (mean corpuscular volume ) determinationOrdered By: Francisco Colon on 04-11-2025 MCV (RBC) [Entitic vol] 104.4 fL High 81-99 [facility] Mean corpuscular hemoglobin (MCH) determinationOrdered By: Francisco Colon on 04-11-2025 MCH (RBC) [Entitic mass] 37.4 pg High 27.0-32.0 [facility] Mean corpuscular hemoglobin concentration (MCHC) determinationOrdered By: Francisco Colon on 04-11-2025 MCHC (RBC) [Mass/Vol] 35.8 g/dL 32-36 [facility] Mean platelet volume determi nationOrdered By: Francisco Colon on 04-11-2025 Platelet mean volume (Bld) [Entitic vol] 9.6 fL 6.2-12.0 [facility] Microscopic analysis of urin e for red blood cells (RBC)Ordered By: Francisco Colon on 04-11-2025 Microscopic analysis of urine for red blood cells (RBC) 0 SEEN /hpf 0-5 [facility] Monocyte percentageOrdered B y: Francisco Colon on 04-11-2025 Monocytes/100 WBC (Bld) 13.2 % High 0-10 [facility] Mucus LM Ql (Urine sed)Order ed By: Francisco Colon on 04-11-2025 Mucus Ql (Urine sed) 0 SEEN /hpf [facility] Neutrophil percentageOrdered By: Francisco Colon on 04-11-2025 Neutrophils/100 WBC (Bld) 42.6 % Low 47-70 [facility] Nitrite Test strip Ql (U)Ord ered By: Francisco Colon on 04-11-2025 Nitrite Ql (U) Negative Negative [facility] Nucleated red blood cell per centageOrdered By: Francisco Colon on 04-11-2025 Nucleated RBC/100 WBC (Bld) [Ratio] 0.4 % 0-5 [facility] Platelet countOrdered By: Pemyan Colon on 04-11-2025 Platelets (Bld) [#/Vol] 246 10*3/uL 150-450 [facility] Potassium measurement (mass/ volume)Ordered By: Francisco Colon on 04-11-2025 Potassium (Unsp spec) [Mass/Vol] 3.2 mmol/L Low 3.3-5.1 [facility] Protein Test strip Ql (U)Ord ered By: Francisco Colon on 04-11-2025 Protein Ql (U) 15 mg/dl High Negative [facility] RBC Auto (Bld) [#/Vol]Ordere d By: Francisco Colon on 04-11-2025 RBC (Bld) [#/Vol] 3.61 10*6/uL Low 4.2-5.4 [facility] Serum creatinine measurement (mass/volume)Ordered By: Francisco Colon on 04-11-2025 Creatinine [Mass/Vol] 0.53 mg/dL Low 0.70-1.20 [facility] Serum glucose measurement (m ass/volume)Ordered By: Francisco Colon on 04-11-2025 Glucose [Mass/Vol] 131 mg/dL High 70-99 [facility] Serum or plasma calcium alphonso urement (mass/volume)Ordered By: Francisco Colon on 04-11-2025 Calcium [Mass/Vol] 8.8 mg/dL 7.6-11.0 [facility] Serum or plasma ethanol alphonso urement (mass/volume)Ordered By: Francisco Colon on 04-11-2025 Ethanol [Mass/Vol] 328.0 mg/dL High <10.1 [facility] Comment on above: Critical Result(s) C alled at:6626 by: LUISITO LUJAN Results read back by same.This test is for medical purposes only. The legal definition of intoxication varies according to local law. Serum or plasma urea nitroge n measurement (mass/volume)Ordered By: Francisco Colon on 04-11-2025 Urea nitrogen [Mass/Vol] 11 mg/dL 4-19 [facility] Sodium levelOrdered By: Francisco Colon on 04-11-2025 Sodium [Moles/Vol] 144 mmol/L 133-145 [facility] Squamous epithelial cells de tection in urine sediment by light microscopyOrdered By: Francisco Colon on 04-11-2025 Epithelial cells.squamous LM Ql (Urine sed) 0 SEEN /hpf - [facility] Troponin T.cardiac [Mass/vol ume] in Serum or Plasma by High sensitivity methodOrdered By: Francisco Colon on 04-11-2025 Troponin T.cardiac High sensitivity method [Mass/Vol] < 6 ng/L <14 [facility] Urinalysis, Completeon 04-11 BACTERIA 0 SEEN Normal None Seen [facility] Comment on above: Order Comment: [place] CTOR TO SPECIFY Performed By: #### L 400.0001 ####[facility] [address] [facility] [place] [address] EPI,SQUAMOUS 0 SEEN Normal - [facility] Comment on above: Order Comment: [place] CTOR TO SPECIFY Performed By: #### L 400.0001 ####[facility] [address] [place], [address] Mucus Ql (Urine sed) 0 SEEN Normal [facility] Comment on above: Order Comment: [place] CTOR TO SPECIFY Performed By: #### L 400.0001 ####[facility] [address] [place], [address] RBC 0 SEEN Normal 0-5 [facility] Comment on above: Order Comment: [place] CTOR TO SPECIFY Performed By: #### L 400.0001 ####[facility] [address] [place], [address] WBC 0 SEEN Normal 0-5 [facility] Comment on above: Order Comment: [place] CTOR TO SPECIFY Performed By: #### L 400.0001 ####[facility] [address] [place], [address] Urine clarityOrdered By: Rommel Colon on 04-11-2025 Clarity (U) Clear Clear [facility] Urine color determinationOrd ered By: Francisco Colon on 04-11-2025 Color (U) Yellow Yellow [facility] Urine glucose detectionOrder ed By: Francisco Colon on 04-11-2025 Glucose Ql (U) Normal mg/dl Normal [facility] Urine leukocyte esterase det ection by dipstickOrdered By: Francisco Colon on 04-11-2025 Leukocyte esterase Test strip Ql (U) Negative Negative [facility] Urine pHOrdered By: Francisco Rosenberg ghbecky on 04-11-2025 pH (U) 7.0 [pH] 5.0 - 8.0 [facility] Urine sediment bacteria coun t by microscopy (number/high power field)Ordered By: Francisco Colon on 04-11-2025 Bacteria LM.HPF (Urine sed) [#/Area] 0 /[HPF] None Seen [facility] Urine specific gravity measu rementOrdered By: Francisco Colon on 04-11-2025 Specific gravity (U) [Rel density] 1.010 1.002-1.030 [facility] Urine urobilinogen measureme ntOrdered By: Francisco Colon on 04-11-2025 Urobilinogen Ql (U) Normal mg/dl Normal [facility] White blood cell (WBC) count Ordered By: Francisco Colon on 04-11-2025 WBC (Bld) [#/Vol] 5.0 10*3/uL 4.4-11.0 [facility] White blood cell countOrdere d By: Francisco Colon on 04-11-2025 White blood cell count 0 SEEN /hpf 0-5 [facility] 12 Lead EKGon 04-04-2025 12 Lead EKG Normal [facility] Abdomen/Pelvis W IV Cont ONL Yon 04-04-2025 Abdomen/Pelvis W IV Cont ONLY Normal [facility] Absolute lymphocyte countOrd ered By: ED PROVIDER on 04-04-2025 Lymphocytes Auto (Unsp spec) [#/Vol] 1.23 10*3/uL 0.83-4.51 [facility] Absolute neutrophil countOrd ered By: ED PROVIDER on 04-04-2025 Neutrophils (Bld) [#/Vol] 6.8 10*3/uL 2.0-7.7 [facility] Anion gap in Serum or Plasma Ordered By: Imani Knight on 04-04-2025 Anion gap [Moles/Vol] 18 mmol/L High 5-15 [facility] Automated lymphocyte count a s percentage of total leukocytesOrdered By: ED PROVIDER on 04-04-2025 Lymphocytes/100 WBC Auto (Unsp spec) 14.0 % Low 19-41 [facility] BUN/creatinine ratioOrdered By: Imani Knight on 04-04-2025 Urea nitrogen/Creatinine [Mass ratio] 8.7 mg/mg Low 10-20 [facility] Basic Metabolic Profile (BMP )on 04-04-2025 BUN/CRE 8.7 RATIO Low 10- [facility] Comment on above: Performed By: #### L 501.4021, L100.0100, L500.2500 ####[facility] [address] [place], [address] Calcium [Mass/Vol] 8.4 mg/dL Normal 7.6-11.0 [facility] Comment on above: Performed By: #### L 501.4021, L100.0100, L500.2500 ####[facility] [address] [place], [address] Chloride [Moles/Vol] 94 mmol/L Low 98-108 [facility] Comment on above: Performed By: #### L 501.4021, L100.0100, L500.2500 ####[facility] [address] [place], [address] CO2 [Moles/Vol] 27.3 mmol/L Normal 21.0-32.0 [facility] Comment on above: Performed By: #### L 501.4021, L100.0100, L500.2500 ####[facility] [address] [place], [address] Creatinine [Mass/Vol] 0.55 mg/dL Low 0.70-1.20 [facility] Comment on above: Performed By: #### L 501.4021, L100.0100, L500.2500 ####[facility] [address] [place], [address] GAP 18 High 5-15 [facility] Comment on above: Performed By: #### L 501.4021, L100.0100, L500.2500 ####[facility] [address] [place], [address] GFR/1.73 sq M.predicted among non-blacks MDRD (S/P/Bld) [Vol rate/Area] 113 mL/min/{1.73_m2} Normal >60 [facility] Comment on above: Result Comment: mL/m in/1.73m2 CKD-EPI Creatinine Equation (2020) Performed By: #### L 501.4021, L100.0100, L500.2500 ####[facility] [address] [place], [address] Glucose [Mass/Vol] 131 mg/dL High 70-99 [facility] Comment on above: Performed By: #### L 501.4021, L100.0100, L500.2500 ####[facility] [address] [place], [address] Potassium [Moles/Vol] 2.9 mmol/L Low 3.3-5.1 [facility] Comment on above: Performed By: #### L 501.4021, L100.0100, L500.2500 ####[facility] [address] [place], [address] Sodium [Moles/Vol] 139 mmol/L Normal 133-145 [facility] Comment on above: Performed By: #### L 501.4021, L100.0100, L500.2500 ####[facility] [address] [place], [address] Urea nitrogen [Mass/Vol] 5 mg/dL Normal 4-19 [facility] Comment on above: Performed By: #### L 501.4021, L100.0100, L500.2500 ####[facility] [address] [place], [address] Basophil percentageOrdered B y: ED PROVIDER on 04-04-2025 Basophils/100 WBC (Bld) 0.7 % 0-1 [facility] Bilirubin directOrdered By: Imani Knight on 04-04-2025 Bilirubin.direct [Mass/Vol] 0.67 mg/dL High 0.00-0.30 [facility] Bilirubin, totalOrdered By: Imani Knight on 04-04-2025 Bilirubin [Mass/Vol] 1.26 mg/dL 0.00-1.30 [facility] CBC W/Diff, Automatedon Absolute Lymph 1.23 X10 3/uL Normal 0.83-4.51 [facility] Comment on above: Performed By: #### L 501.4021, L100.0100, L500.2500 ####[facility] [address] [place], [address] Absolute Neut 6.8 X10 3/uL Normal 2.0-7.7 [facility] Comment on above: Performed By: #### L 501.4021, L100.0100, L500.2500 ####[facility] [address] [place], [address] Basophils/100 WBC (Bld) 0.7 % Normal 0-1 [facility] Comment on above: Performed By: #### L 501.4021, L100.0100, L500.2500 ####[facility] [address] [place], [address] Eosinophils/100 WBC (Bld) 0.2 % Normal 0-5 [facility] Comment on above: Performed By: #### L 501.4021, L100.0100, L500.2500 ####[facility] [address] [place], [address] Erythrocyte distribution width (RBC) [Ratio] 13.5 % Normal 11.6-14.6 [facility] Comment on above: Performed By: #### L 501.4021, L100.0100, L500.2500 ####[facility] [address] [place], [address] Hematocrit (Bld) [Volume fraction] 40.3 % Normal 37-47 [facility] Comment on above: Performed By: #### L 501.4021, L100.0100, L500.2500 ####[facility] [address] [place], [address] Hemoglobin (Bld) [Mass/Vol] 14.3 g/dL Normal 12.0-15.0 [facility] Comment on above: Performed By: #### L 501.4021, L100.0100, L500.2500 ####[facility] [address] [place], [address] IG% 0.300 Normal 0.0-0.9 [facility] Comment on above: Result Comment: IG% - Immature Granulocytes (promyelocytes, myelocytes andmetamyelocytes) > 1% indicates that a LEFT SHIFT is Present. Performed By: #### L 501.4021, L100.0100, L500.2500 ####[facility] [address] [place], [address] Lymphocytes/100 WBC (Bld) 14.0 % Low 19-41 [facility] Comment on above: Performed By: #### L 501.4021, L100.0100, L500.2500 ####[facility] [address] [place], [address] MCH (RBC) [Entitic mass] 35.4 pg High 27.0-32.0 [facility] Comment on above: Performed By: #### L 501.4021, L100.0100, L500.2500 ####[facility] [address] [place], [address] MCHC (RBC) [Mass/Vol] 35.5 g/dL Normal 32-36 [facility] Comment on above: Performed By: #### L 501.4021, L100.0100, L500.2500 ####[facility] [address] [place], [address] MCV (RBC) [Entitic vol] 99.8 fL High 81-99 [facility] Comment on above: Performed By: #### L 501.4021, L100.0100, L500.2500 ####[facility] [address] [place], [address] Monocytes/100 WBC (Bld) 7.8 % Normal 0-10 [facility] Comment on above: Performed By: #### L 501.4021, L100.0100, L500.2500 ####[facility] [address] [place], [address] Neutrophils/100 WBC (Bld) 77.0 % High 47-70 [facility] Comment on above: Performed By: #### L 501.4021, L100.0100, L500.2500 ####[facility] [address] [place], [address] Nucleated RBC (Bld) [#/Vol] 0.2 10*3/uL Normal 0-5 [facility] Comment on above: Performed By: #### L 501.4021, L100.0100, L500.2500 ####[facility] [address] [place], [address] Platelet mean volume (Bld) [Entitic vol] 10.0 fL Normal 6.2-12.0 [facility] Comment on above: Performed By: #### L 501.4021, L100.0100, L500.2500 ####[facility] [address] [place], [address] Platelets (Bld) [#/Vol] 186 10*3/uL Normal 150-450 [facility] Comment on above: Performed By: #### L 501.4021, L100.0100, L500.2500 ####[facility] [address] [place], [address] RBC (Bld) [#/Vol] 4.04 10*6/uL Low 4.2-5.4 [facility] Comment on above: Performed By: #### L 501.4021, L100.0100, L500.2500 ####[facility] [address] [place], [address] RDW SD 50.3 fl High 35.1-43.9 [facility] Comment on above: Performed By: #### L 501.4021, L100.0100, L500.2500 ####[facility] [address] [place], [address] WBC (Bld) [#/Vol] 8.8 10*3/uL Normal 4.4-11.0 [facility] Comment on above: Performed By: #### L 501.4021, L100.0100, L500.2500 ####[facility] [address] [place], [address] Carbon dioxide, total [Moles /volume] in Central venous bloodOrdered By: Imani Knight on 04-04-2025 CO2 [Moles/Vol] 27.3 mmol/L 21.0-32.0 [facility] Chest 1 View (Portable)on Chest 1 View (Portable) Normal [facility] Chloride assayOrdered By: Nash Knight on 04-04-2025 Chloride [Moles/Vol] 94 mmol/L Low 98-108 [facility] Emergency Department Summary on 04-04-2025 Emergency Department Summary Normal [facility] Eosinophil percentageOrdered By: ED PROVIDER on 04-04-2025 Eosinophils/100 WBC (Bld) 0.2 % 0-5 [facility] Erythrocyte distribution wid th ratioOrdered By: ED PROVIDER on 04-04-2025 Erythrocyte distribution width (RBC) [Ratio] 13.5 % 11.6-14.6 [facility] Erythrocyte distribution wid th standard deviationOrdered By: ED PROVIDER on 04-04-2025 Erythrocyte distribution width (RBC) [Ratio] 50.3 fl High 35.1-43.9 [facility] Glomerular filtration rate ( GFR) estimation/1.73 sq m using serum, plasma, or whole bOrdered By: Imani Knight on 04-04-2025 GFR/1.73 sq M.predicted among non-blacks MDRD (S/P/Bld) [Vol rate/Area] 113 mL/min/{1.73_m2} >60 [facility] Comment on above: mL/min/1.73m2 CKD-EP I Creatinine Equation (2020) Hematocrit Auto (Bld) [Volum e fraction]Ordered By: ED PROVIDER on 04-04-2025 Hematocrit (Bld) [Volume fraction] 40.3 % 37-47 [facility] Hemoglobin measurementOrdere d By: ED PROVIDER on 04-04-2025 Hemoglobin (Bld) [Mass/Vol] 14.3 g/dL 12.0-15.0 [facility] Immature granulocytes/100 WB C Auto (Bld)Ordered By: ED PROVIDER on 04-04-2025 Immature granulocytes/100 WBC (Bld) 0.300 % 0.0-0.9 [facility] Comment on above: IG% - Immature Granu locytes (promyelocytes, myelocytes and metamyelocytes) > 1% indicates that a LEFT SHIFT is Present. L499.0042on 04-04-2025 Trop T High Sen < 6 Normal <=14 [facility] Comment on above: Performed By: #### L 499.0042 ####[facility] [address] [place], [address] L499.0043on 04-04-2025 Trop T High Sen Normal <=14 [facility] Comment on above: Result Comment: CHUY ENT DISCHARGED Performed By: #### L 499.0043 ####[facility] [address] [place], [address] L501.4021on 04-04-2025 Trop T High Sen < 6 Normal <=14 [facility] Comment on above: Performed By: #### L 501.4021, L100.0100, L500.2500 ####[facility] [address] [place], [address] Laboratory - Chemistry and C hemistry - challengeOrdered By: Imani Knight on 04-04-2025 AST [Catalytic activity/Vol] 75 U/L High <32 [facility] Lipaseon 04-04-2025 Lipase [Catalytic activity/Vol] 26 U/L Normal 13-75 [facility] Comment on above: Result Comment: Plea se note:LIPASE revised reference range effective 23.New Lipase methodology. Expected to produce lower valuesthan the previous assay method.NEW Reference Range: 13 - 75 U/L Performed By: #### L 500.3400, L501.5200, L501.2450 ####[facility] [address] [place], [address] Lipase measurementOrdered By : Imani Knight on 04-04-2025 Lipase [Catalytic activity/Vol] 26 U/L 13-75 [facility] Comment on above: Please note:LIPASE r evised reference range effective 23. New Lipase methodology. Expected to produce lower values than the previous assay method. NEW Reference Range: 13 - 75 U/L Liver Profileon 04-04-2025 Albumin [Mass/Vol] 4.1 g/dL Normal 3.5-5.0 [facility] Comment on above: Performed By: #### L 500.3400, L501.5200, L501.2450 ####[facility] [address] [place], [address] ALK PHOS 91 U/L Normal 35-104 [facility] Comment on above: Performed By: #### L 500.3400, L501.5200, L501.2450 ####[facility] [address] [place], [address] ALT [Catalytic activity/Vol] 44 U/L High <=34 [facility] Comment on above: Performed By: #### L 500.3400, L501.5200, L501.2450 ####[facility] [address] [place], [address] AST [Catalytic activity/Vol] 75 U/L High <=31 [facility] Comment on above: Performed By: #### L 500.3400, L501.5200, L501.2450 ####[facility] [address] [place], [address] Bilirubin [Mass/Vol] 1.26 mg/dL Normal 0.00-1.30 [facility] Comment on above: Performed By: #### L 500.3400, L501.5200, L501.2450 ####[facility] [address] [place], [address] Bilirubin.direct [Mass/Vol] 0.67 mg/dL High 0.00-0.30 [facility] Comment on above: Performed By: #### L 500.3400, L501.5200, L501.2450 ####[facility] [address] [place], [address] Globulin (S) [Mass/Vol] 3.3 g/dL Normal 2.2-4.2 [facility] Comment on above: Performed By: #### L 500.3400, L501.5200, L501.2450 ####[facility] [address] [place], [address] T PROT 7.3 g/dL Normal 5.9-8.4 [facility] Comment on above: Performed By: #### L 500.3400, L501.5200, L501.2450 ####[facility] [address] [place], [address] MCV (mean corpuscular volume ) determinationOrdered By: ED PROVIDER on 04-04-2025 MCV (RBC) [Entitic vol] 99.8 fL High 81-99 [facility] Magnesiumon 04-04-2025 Magnesium [Mass/Vol] 0.6 mg/dL Invalid Interpretation Code 1.5-2.2 [facility] Comment on above: Result Comment: Crit ical Result(s) Called at: 04/04/2025-12: by: Francesco to Meredith Fairchild.??Results read back by same. Performed By: #### L 500.3400, L501.5200, L501.2450 ####[facility] [address] [place], [address] Magnesium measurement (mass/ volume)Ordered By: Imani nKight on 04-04-2025 Magnesium (Unsp spec) [Mass/Vol] 0.6 mg/dL Low 1.5-2.2 [facility] Comment on above: Critical Result(s) C alled at: 04/04/2025-: by: Ru Fairchild. Results read back by same. Mean corpuscular hemoglobin (MCH) determinationOrdered By: ED PROVIDER on 04-04-2025 MCH (RBC) [Entitic mass] 35.4 pg High 27.0-32.0 [facility] Mean corpuscular hemoglobin concentration (MCHC) determinationOrdered By: ED PROVIDER on 04-04-2025 MCHC (RBC) [Mass/Vol] 35.5 g/dL 32-36 [facility] Mean platelet volume determi nationOrdered By: ED PROVIDER on 04-04-2025 Platelet mean volume (Bld) [Entitic vol] 10.0 fL 6.2-12.0 [facility] Monocyte percentageOrdered B y: ED PROVIDER on 04-04-2025 Monocytes/100 WBC (Bld) 7.8 % 0-10 [facility] Neutrophil percentageOrdered By: ED PROVIDER on 04-04-2025 Neutrophils/100 WBC (Bld) 77.0 % High 47-70 [facility] No Panel InformationOrdered By: Imani Knight on 04-04-2025 75 U/L High <32 [facility] Nucleated red blood cell per centageOrdered By: ED PROVIDER on 04-04-2025 Nucleated RBC/100 WBC (Bld) [Ratio] 0.2 % 0-5 [facility] Platelet countOrdered By: ED PROVIDER on 04-04-2025 Platelets (Bld) [#/Vol] 186 10*3/uL 150-450 [facility] Potassium measurement (mass/ volume)Ordered By: Imani Knight on 04-04-2025 Potassium (Unsp spec) [Mass/Vol] 2.9 mmol/L Low 3.3-5.1 [facility] RBC Auto (Bld) [#/Vol]Ordere d By: ED PROVIDER on 04-04-2025 RBC (Bld) [#/Vol] 4.04 10*6/uL Low 4.2-5.4 [facility] Serum creatinine measurement (mass/volume)Ordered By: Imani Knight on 04-04-2025 Creatinine [Mass/Vol] 0.55 mg/dL Low 0.70-1.20 [facility] Serum globulin measurementOr dered By: Imani Knight on 04-04-2025 Globulin (S) [Mass/Vol] 3.3 g/dL 2.2-4.2 [facility] Serum glucose measurement (m ass/volume)Ordered By: Imani Knight on 04-04-2025 Glucose [Mass/Vol] 131 mg/dL High 70-99 [facility] Serum or plasma alanine wilkerson otransferase (ALT) measurementOrdered By: Imani Knight on 04-04-2025 ALT [Catalytic activity/Vol] 44 U/L High <35 [facility] Serum or plasma albumin alphonso urement (mass/volume)Ordered By: Imani Knight on 04-04-2025 Albumin [Mass/Vol] 4.1 g/dL 3.5-5.0 [facility] Serum or plasma alkaline trinity sphatase measurementOrdered By: Imani Knight on 04-04-2025 ALP [Catalytic activity/Vol] 91 U/L 35-104 [facility] Serum or plasma calcium alphonso urement (mass/volume)Ordered By: Imani Knight on 04-04-2025 Calcium [Mass/Vol] 8.4 mg/dL 7.6-11.0 [facility] Serum or plasma urea nitroge n measurement (mass/volume)Ordered By: Imani Knight on 04-04-2025 Urea nitrogen [Mass/Vol] 5 mg/dL 4-19 [facility] Sodium levelOrdered By: Radha Knight on 04-04-2025 Sodium [Moles/Vol] 139 mmol/L 133-145 [facility] Total proteinOrdered By: Gwen Knight on 04-04-2025 Protein [Mass/Vol] 7.3 g/dL 5.9-8.4 [facility] Troponin T.cardiac [Mass/vol ume] in Serum or Plasma by High sensitivity methodOrdered By: Imani Knight on 04-04-2025 Troponin T.cardiac High sensitivity method [Mass/Vol] < 6 ng/L <14 [facility] Troponin T.cardiac High sensitivity method [Mass/Vol] < 6 ng/L <14 [facility] White blood cell (WBC) count Ordered By: ED PROVIDER on 04-04-2025 WBC (Bld) [#/Vol] 8.8 10*3/uL 4.4-11.0 [facility] 12 Lead EKGon 11-12-2024 12 Lead EKG Normal [facility] Basic Metabolic Profile (BMP )on 11-12-2024 BUN/CRE 23.8 RATIO High 10-20 [facility] Comment on above: Order Comment: 1Y Performed By: #### L 500.2500, L501.5425, L300.8000, L501.5200, L700.6800, L100.0100 ####[facility] [address] [place], [address] CA,Total 8.1 mg/dL Low 8.5-10.1 [facility] Comment on above: Order Comment: 1Y Performed By: #### L 500.2500, L501.5425, L300.8000, L501.5200, L700.6800, L100.0100 ####[facility] [address] [place], [address] Chloride [Moles/Vol] 99 mmol/L Normal 98-107 [facility] Comment on above: Order Comment: 1Y Performed By: #### L 500.2500, L501.5425, L300.8000, L501.5200, L700.6800, L100.0100 ####[facility] [address] [place], [address] CO2 [Moles/Vol] 27.0 mmol/L Normal 21.0-32.0 [facility] Comment on above: Order Comment: 1Y Performed By: #### L 500.2500, L501.5425, L300.8000, L501.5200, L700.6800, L100.0100 ####[facility] [address] [place], [address] Creatinine [Mass/Vol] 0.59 mg/dL Normal 0.55-1.02 [facility] Comment on above: Order Comment: 1Y Result Comment: The validity of the calculated GFR GFRAA in patients over70 years has not been determined. Clinical correlation isessential. Performed By: #### L 500.2500, L501.5425, L300.8000, L501.5200, L700.6800, L100.0100 ####[facility] [address] [place], [address] ECRCL 112.29 ml/min Normal [facility] Comment on above: Order Comment: 1Y Performed By: #### L 500.2500, L501.5425, L300.8000, L501.5200, L700.6800, L100.0100 ####[facility] [address] [place], [address] EST GFR - AA 140 mL/min Normal >60 [facility] Comment on above: Order Comment: 1Y Result Comment: Afri can Tajik GFR Calc Performed By: #### L 500.2500, L501.5425, L300.8000, L501.5200, L700.6800, L100.0100 ####[facility] [address] [place], [address] GAP 9 Normal 5-15 [facility] Comment on above: Order Comment: 1Y Performed By: #### L 500.2500, L501.5425, L300.8000, L501.5200, L700.6800, L100.0100 ####[facility] [address] [place], [address] GFR/1.73 sq M.predicted among non-blacks MDRD (S/P/Bld) [Vol rate/Area] 116 mL/min/{1.73_m2} Normal >60 [facility] Comment on above: Order Comment: 1Y Result Comment: Non- GFR Calc Performed By: #### L 500.2500, L501.5425, L300.8000, L501.5200, L700.6800, L100.0100 ####[facility] [address] [place], [address] Glucose [Mass/Vol] 131 mg/dL High 74-106 [facility] Comment on above: Order Comment: 1Y Result Comment: Fast ing Glucose result greater than or equal to 126 mg/dLsuggests DIABETES MELLITUS per A.D.A. criteria. Performed By: #### L 500.2500, L501.5425, L300.8000, L501.5200, L700.6800, L100.0100 ####[facility] [address] [place], [address] Potassium [Moles/Vol] 3.7 mmol/L Normal 3.5-5.1 [facility] Comment on above: Order Comment: 1Y Performed By: #### L 500.2500, L501.5425, L300.8000, L501.5200, L700.6800, L100.0100 ####[facility] [address] [place] [place], [address] Sodium [Moles/Vol] 135 mmol/L Low 136-145 [facility] Comment on above: Order Comment: 1Y Performed By: #### L 500.2500, L501.5425, L300.8000, L501.5200, L700.6800, L100.0100 ####[facility] [address] [place], [address] Urea nitrogen [Mass/Vol] 14 mg/dL Normal 7-18 [facility] Comment on above: Order Comment: 1Y Performed By: #### L 500.2500, L501.5425, L300.8000, L501.5200, L700.6800, L100.0100 ####[facility] [address] [place], [address] CBC W/Diff, Automatedon 12-12 03-2023 Absolute Lymph 1.29 X10 3/uL Normal 0.83-4.51 [facility] Comment on above: Performed By: #### L 500.2500, L501.5425, L300.8000, L501.5200, L700.6800, L100.0100 ####[facility] [address] [place], [address] Absolute Neut 6.5 X10 3/uL Normal 2.0-7.7 [facility] Comment on above: Performed By: #### L 500.2500, L501.5425, L300.8000, L501.5200, L700.6800, L100.0100 ####[facility] [address] [place], [address] Basophils/100 WBC (Bld) 0.5 % Normal 0-1 [facility] Comment on above: Performed By: #### L 500.2500, L501.5425, L300.8000, L501.5200, L700.6800, L100.0100 ####[facility] [address] [place], [address] Eosinophils/100 WBC (Bld) 1.2 % Normal 0-5 [facility] Comment on above: Performed By: #### L 500.2500, L501.5425, L300.8000, L501.5200, L700.6800, L100.0100 ####[facility] [address] [place], [address] Erythrocyte distribution width (RBC) [Ratio] 13.1 % Normal 11.6-14.6 [facility] Comment on above: Performed By: #### L 500.2500, L501.5425, L300.8000, L501.5200, L700.6800, L100.0100 ####[facility] [address] [place], [address] Hematocrit (Bld) [Volume fraction] 37.7 % Normal 37-47 [facility] Comment on above: Performed By: #### L 500.2500, L501.5425, L300.8000, L501.5200, L700.6800, L100.0100 ####[facility] [address] [place], [address] Hemoglobin (Bld) [Mass/Vol] 12.9 g/dL Normal 12.0-15.0 [facility] Comment on above: Performed By: #### L 500.2500, L501.5425, L300.8000, L501.5200, L700.6800, L100.0100 ####[facility] [address] [place], [address] IG% 0.200 Normal 0.0-0.9 [facility] Comment on above: Result Comment: IG% - Immature Granulocytes (promyelocytes, myelocytes andmetamyelocytes) > 1% indicates that a LEFT SHIFT is Present. Performed By: #### L 500.2500, L501.5425, L300.8000, L501.5200, L700.6800, L100.0100 ####[facility] [address] [place], [address] Lymphocytes/100 WBC (Bld) 15.1 % Low 19-41 [facility] Comment on above: Performed By: #### L 500.2500, L501.5425, L300.8000, L501.5200, L700.6800, L100.0100 ####[facility] [address] [place], [address] MCH (RBC) [Entitic mass] 33.7 pg High 27.0-32.0 [facility] Comment on above: Performed By: #### L 500.2500, L501.5425, L300.8000, L501.5200, L700.6800, L100.0100 ####[facility] [address] [place], [address] MCHC (RBC) [Mass/Vol] 34.2 g/dL Normal 32-36 [facility] Comment on above: Performed By: #### L 500.2500, L501.5425, L300.8000, L501.5200, L700.6800, L100.0100 ####[facility] [address] [place], [address] MCV (RBC) [Entitic vol] 98.4 fL Normal 81-99 [facility] Comment on above: Performed By: #### L 500.2500, L501.5425, L300.8000, L501.5200, L700.6800, L100.0100 ####[facility] [address] [place], [address] Monocytes/100 WBC (Bld) 6.9 % Normal 0-10 [facility] Comment on above: Performed By: #### L 500.2500, L501.5425, L300.8000, L501.5200, L700.6800, L100.0100 ####[facility] [address] [place], [address] Neutrophils/100 WBC (Bld) 76.1 % High 47-70 [facility] Comment on above: Performed By: #### L 500.2500, L501.5425, L300.8000, L501.5200, L700.6800, L100.0100 ####[facility] [address] [place], [address] Nucleated RBC (Bld) [#/Vol] 0 10*3/uL Normal 0-5 [facility] Comment on above: Performed By: #### L 500.2500, L501.5425, L300.8000, L501.5200, L700.6800, L100.0100 ####[facility] [address] [place], [address] Platelet mean volume (Bld) [Entitic vol] 9.2 fL Normal 6.2-12.0 [facility] Comment on above: Performed By: #### L 500.2500, L501.5425, L300.8000, L501.5200, L700.6800, L100.0100 ####[facility] [address] [place], [address] Platelets (Bld) [#/Vol] 211 10*3/uL Normal 150-450 [facility] Comment on above: Performed By: #### L 500.2500, L501.5425, L300.8000, L501.5200, L700.6800, L100.0100 ####[facility] [address] [place], [address] RBC (Bld) [#/Vol] 3.83 10*6/uL Low 4.2-5.4 [facility] Comment on above: Performed By: #### L 500.2500, L501.5425, L300.8000, L501.5200, L700.6800, L100.0100 ####[facility] [address] [place], [place], [id number](495) RDW SD 46.6 fl High 35.1-43.9 [facility] Comment on above: Performed By: #### L 500.2500, L501.5425, L300.8000, L501.5200, L700.6800, L100.0100 ####[facility] [address] [place], [address] WBC (Bld) [#/Vol] 8.6 10*3/uL Normal 4.4-11.0 [facility] Comment on above: Performed By: #### L 500.2500, L501.5425, L300.8000, L501.5200, L700.6800, L100.0100 ####[facility] [address] [place], [place], [id number] CTA Chest W/WO Contraston CTA Chest W/WO Contrast Normal [facility] Chest 1 View (Portable)on Chest 1 View (Portable) Normal [facility] D-Dimer Quantitative (DVT/PE )on 11-12-2024 D-DIMER QUANT 0.74 FEU/ug/m Invalid Interpretation Code 0.27-0.49 [facility] Comment on above: Order Comment: CRITI FLORECITA VALUE CALLED TO dfxzsldnfdkbdou27/15/24 Renee Queen.RESULTS READ BACK BY same. Result Comment: D-Di clive ELEVATED (>0.49): Additional studies and clinicalassessments are indicated to conclude diagnosis of:Deep Vein Thrombosis (DVT) or Pulmonary Embolism (PE) Performed By: #### L 500.2500, L501.5425, L300.8000, L501.5200, L700.6800, L100.0100 ####[facility] [address] [place], [place], [id number] Emergency Department Summary on 11-12-2024 Emergency Department Summary Normal [facility] L501.4020on 11-12-2024 TROPONIN-I HS 6 pg/mL Normal 3.0-54.0 [facility] Comment on above: Result Comment: Plea se Note: New Test Units and Gender Specific Reference Ranges. For more information see Policy Stat Procedure [place] High Sensitivity Troponin (TNIH) and attachments. Performed By: #### L 501.4020 ####[facility] [address] [place], [place], [id number] L501.5425on 11-12-2024 TROPONIN-I HS 6 pg/mL Normal 3.0-54.0 [facility] Comment on above: Order Comment: 1Y Result Comment: Plea se Note: New Test Units and Gender Specific Reference Ranges. For more information see Policy Stat Procedure [place] High Sensitivity Troponin (TNIH) and attachments. Performed By: #### L 500.2500, L501.5425, L300.8000, L501.5200, L700.6800, L100.0100 ####[facility] [address] [place], [address] Magnesiumon 11-12-2024 Magnesium [Mass/Vol] 1.1 mg/dL Low 1.6-2.6 [facility] Comment on above: Order Comment: 1Y Performed By: #### L 500.2500, L501.5425, L300.8000, L501.5200, L700.6800, L100.0100 ####[facility] [address] [place], [place], [id number] ,Serum,hCG Quali.on 11-12-2024 HCG, SERUM QUAL Negative Normal [facility] Comment on above: Performed By: #### L 500.2500, L501.5425, L300.8000, L501.5200, L700.6800, L100.0100 ####[facility] [address] [place], [address] Orthopedic Visit Reporton Orthopedic Visit Report Normal [facility] Spine Lumbar (Routine)on Spine Lumbar (Routine) Normal [facility] L/S Spine Min 4 Viewson 08-01 L/S Spine Min 4 Views Normal [facility] Orthopedic Visit Reporton Orthopedic Visit Report Normal [facility] CNOVon 04-22-2024 CNOV Office Visit (UCWSTR ) JOSEPH RINCON ([id number]) 1975 F NFR Date Time Provider Department 04/22/24 1:30 PM [facility] During your visit today, we recorded the following information about you: Temperature Pulse Respiration Blood pressure 97.4 degrees 115/minute 20/minute 120/84 Weight 75.8 kg Aretha Schofield APRN.[employer] 04/22/2024 2:02 PM Signed Subjective Sinus Problem [...] since qu (more content not included)... Normal [facility] Basophil percentageOrdered B y: Milana Jose on 03-21-2024 Bilirubin [Mass/Vol] 0.60 mg/dL 0.20-1.00 [facility] Comment on above: For patients on eltr ombopag therapy, use of Dimension [place] TBIL is not recommended. Chloride [Moles/Vol] 105 mmol/L 98-[address] [facility] Glucose [Mass/Vol] 121 mg/dL 74-106 [facility] Comment on above: Fasting Glucose resu lt from 100 to 125 mg/dL suggests IMPAIRED HOMEOSTASIS per A.D.A. criteria. Potassium [Moles/Vol] 4.0 mmol/L 3.5-5.1 [facility] Protein [Mass/Vol] 7.6 g/dL 6.4-8.2 [facility] Sodium [Moles/Vol] 136 mmol/L 136-145 [facility] Laboratory - Chemistry and C hemistry - challengeOrdered By: Milana Garcia on 03-21-2024 Albumin/Globulin [Mass ratio] 0.9 {ratio} 0.9-2.4 [facility] ALP [Catalytic activity/Vol] 67 U/L 45-117 [facility] ALT [Catalytic activity/Vol] 27 U/L 13-56 [facility] CO2 [Moles/Vol] 24.0 mmol/L 21.0-32.0 [facility] Globulin (S) [Mass/Vol] 4.0 g/dL 2.2-4.2 [facility] Magnesium [Mass/Vol] 1.7 mg/dL 1.6-2.6 [facility] Sodium (U) [Moles/Vol] 104 mmol/L Not Establ. [facility] Urea nitrogen/Creatinine [Mass ratio] 21.6 mg/mg 10-20 [facility] No Panel InformationOrdered By: Milana Garcia on 03-21-2024 Estimated GFR (MDRD) Amer 108 mL/min >60 [facility] Comment on above: GFR Calc Estimated GFR (MDRD) Non-Af Amer 89 mL/min >60 [facility] Comment on above: Non- GFR Calc Serum or plasma calcium alphonso urement (mass/volume)Ordered By: Milana Garcia on 03-21-2024 Calcium [Mass/Vol] 8.8 mg/dL 8.5-10.1 [facility] Serum or plasma creatinine m easurement (mass/volume)Ordered By: Milana Garcia on 03-21-2024 Creatinine [Mass/Vol] 0.74 mg/dL 0.55-1.02 [facility] Comment on above: The validity of the calculated GFR & GFRAA in patients over 70 years has not been determined. Clinical correlation is essential. Serum or plasma thyroid stim ulating hormone (TSH) measurement (units/volume)Ordered By: Milana Garcia on 03-21-2024 TSH Qn 1.06 uIU/mL 0.358-3.74 [facility] Serum or plasma urea nitroge n measurement (mass/volume)Ordered By: Milana Garcia on 03-21-2024 Urea nitrogen [Mass/Vol] 16 mg/dL 7-18 [facility] Thin prep Papanicolaou smear with manual screeningOrdered By: Milana Garcia on 03-21-2024 Thin prep Papanicolaou smear with manual screening 3.6 g/dL 3.2-5.0 [facility] Thin prep Papanicolaou smear with manual screening 22 U/L 15-37 [facility] Thin prep Papanicolaou smear with manual screening 7 5-15 [facility] Thin prep Papanicolaou smear with manual screening 286 mOsm/KG 275-295 [facility] Urine osmolality measurement Ordered By: Milana Garcia on 03-21-2024 Osmolality (U) [Osmolality] 535 mOsm/KG >50 [facility] Comment on above: Normal Urine Referen ce Ranges Random: 50 - 1200 mOsm/kg H20 depending on fluid intake Random: >850 mOsm/kg after 12 hour fluid restriction 24 hour: ~300 - 900 mOsm/kg H2O Absolute lymphocyte countOrd ered By: Caprice Jerry on 01-24-2024 Lymphocytes Auto (Unsp spec) [#/Vol] 3.36 10*3/uL 0.83-4.51 [facility] Automated lymphocyte count a s percentage of total leukocytesOrdered By: Caprice Jerry on 01-24-2024 Lymphocytes/100 WBC Auto (Unsp spec) 33.3 % 19-41 [facility] Basophil percentageOrdered B y: Caprice Jerry on 01-24-2024 Basophils/100 WBC (Bld) 0.8 % 0-1 [facility] Chloride [Moles/Vol] 104 mmol/L 98-107 [facility] Eosinophils/100 WBC (Bld) 1.6 % 0-5 [facility] Glucose [Mass/Vol] 110 mg/dL 74-106 [facility] Comment on above: Fasting Glucose resu lt from 100 to 125 mg/dL suggests IMPAIRED HOMEOSTASIS per A.D.A. criteria. Hemoglobin (Bld) [Mass/Vol] 12.5 g/dL 12.0-15.0 [facility] Monocytes/100 WBC (Bld) 9.1 % 0-10 [facility] Neutrophils (Bld) [#/Vol] 5.5 10*3/uL 2.0-7.7 [facility] Neutrophils/100 WBC (Bld) 54.8 % 47-70 [facility] Potassium [Moles/Vol] 3.9 mmol/L 3.5-5.1 [facility] Sodium [Moles/Vol] 138 mmol/L 136-145 [facility] WBC (Bld) [#/Vol] 10.1 10*3/uL 4.4-11.0 [facility] Basophil percentageOrdered B y: Ainsley Bean on 01-24-2024 Bilirubin [Mass/Vol] 0.30 mg/dL 0.20-1.00 [facility] Comment on above: For patients on eltr ombopag therapy, use of Dimension [place] TBIL is not recommended. Protein [Mass/Vol] 7.1 g/dL 6.4-8.2 [facility] Determination of erythrocyte mean corpuscular volume (MCV)Ordered By: Caprice Jerry on 01-24-2024 MCV (RBC) [Entitic vol] 95.9 fL 81-99 [facility] Direct bilirubinOrdered By: Ainsley Bean on 01-24-2024 Bilirubin.direct [Mass/Vol] 0.12 mg/dL 0.00-0.30 [facility] Erythrocyte distribution wid th ratioOrdered By: Caprice Jerry on 01-24-2024 Erythrocyte distribution width (RBC) [Ratio] 11.9 % 11.6-14.6 [facility] Erythrocyte distribution wid th standard deviationOrdered By: Caprice Jerry on 01-24-2024 Erythrocyte distribution width (RBC) [Entitic vol] 41.5 fL 35.1-43.9 [facility] Hematocrit Auto (Bld) [Volum e fraction]Ordered By: Caprice Jerry on 01-24-2024 Hematocrit (Bld) [Volume fraction] 37.4 % 37-47 [facility] Immature granulocytes/100 WB C Auto (Bld)Ordered By: Caprice Jerry on 01-24-2024 Immature granulocytes/100 WBC (Bld) 0.400 % 0.0-0.9 [facility] Comment on above: IG% - Immature Granu locytes (promyelocytes, myelocytes and metamyelocytes) > 1% indicates that a LEFT SHIFT is Present. Laboratory - Chemistry and C hemistry - challengeOrdered By: Ainsley Bean on 01-24-2024 ALP [Catalytic activity/Vol] 69 U/L 45-117 [facility] ALT [Catalytic activity/Vol] 23 U/L 13-56 [facility] Globulin (S) [Mass/Vol] 3.7 g/dL 2.2-4.2 [facility] Lipase [Catalytic activity/Vol] 88 U/L 13-75 [facility] Comment on above: Please note:LIPASE r evised reference range effective 23. New Lipase methodology. Expected to produce lower values than the previous assay method. NEW Reference Range: 13 - 75 U/L Laboratory - Chemistry and C hemistry - challengeOrdered By: Caprice Jerry on 01-24-2024 CO2 [Moles/Vol] 29.0 mmol/L 21.0-32.0 [facility] Urea nitrogen/Creatinine [Mass ratio] 21.7 mg/mg 10-20 [facility] Laboratory - Hematology and Cell countsOrdered By: Caprice Jerry on 01-24-2024 MCH (RBC) [Entitic mass] 32.1 pg 27.0-32.0 [facility] MCHC (RBC) [Mass/Vol] 33.4 g/dL 32-36 [facility] Nucleated RBC/100 WBC (Bld) [Ratio] 0 % 0-5 [facility] Platelet mean volume (Bld) [Entitic vol] 9.6 fL 6.2-12.0 [facility] Platelets (Bld) [#/Vol] 264 10*3/uL 150-450 [facility] No Panel InformationOrdered By: Ainsley Bean on 01-24-2024 Troponin I High Sensitivity 4 pg/mL 3.0-54.0 [facility] Comment on above: Please Note: New Miri t Units and Gender Specific Reference Ranges. For more information see Policy Stat Procedure [place] High Sensitivity Troponin (TNIH) and attachments. No Panel InformationOrdered By: Caprice Jerry on 01-24-2024 Estimated GFR (MDRD) Amer 108 mL/min >60 [facility] Comment on above: GFR Calc Estimated GFR (MDRD) Non-Af Amer 90 mL/min >60 [facility] Comment on above: Non- GFR Calc RBC Auto (Bld) [#/Vol]Ordere d By: Caprice Jerry on 01-24-2024 RBC (Bld) [#/Vol] 3.90 10*6/uL 4.2-5.4 [facility] Serum or plasma calcium alphonso urement (mass/volume)Ordered By: Caprice Jerry on 01-24-2024 Calcium [Mass/Vol] 10.1 mg/dL 8.5-10.1 [facility] Serum or plasma creatinine m easurement (mass/volume)Ordered By: Caprice Jerry on 01-24-2024 Creatinine [Mass/Vol] 0.74 mg/dL 0.55-1.02 [facility] Comment on above: The validity of the calculated GFR & GFRAA in patients over 70 years has not been determined. Clinical correlation is essential. Serum or plasma urea nitroge n measurement (mass/volume)Ordered By: Caprice Jerry on 01-24-2024 Urea nitrogen [Mass/Vol] 16 mg/dL 7-18 [facility] Thin prep Papanicolaou smear with manual screeningOrdered By: Ainsley Bean on 01-24-2024 Thin prep Papanicolaou smear with manual screening 3.4 g/dL 3.2-5.0 [facility] Thin prep Papanicolaou smear with manual screening 25 U/L 15-37 [facility] Comment on above: Slight Hemolysis, Re sult may be falsely increased. Thin prep Papanicolaou smear with manual screeningOrdered By: Caprice Jerry on 01-24-2024 Thin prep Papanicolaou smear with manual screening 5 5-15 [facility] Absolute lymphocyte countOrd ered By: Caprice Jerry on 10-10-2023 Lymphocytes Auto (Unsp spec) [#/Vol] 0.98 10*3/uL 0.83-4.51 [facility] Basophil percentageOrdered B y: Caprice Jerry on 10-10-2023 Basophils/100 WBC (Bld) 0.3 % 0-1 [facility] Bilirubin [Mass/Vol] 1.00 mg/dL 0.20-1.00 [facility] Comment on above: For patients on eltr ombopag therapy, use of Dimension [place] TBIL is not recommended. Chloride [Moles/Vol] 103 mmol/L 98-107 [facility] Eosinophils/100 WBC (Bld) 0.2 % 0-5 [facility] Glucose [Mass/Vol] 175 mg/dL 74-106 [facility] Comment on above: Fasting Glucose resu lt greater than or equal to 126 mg/dL suggests DIABETES MELLITUS per A.D.A. criteria. Neutrophils (Bld) [#/Vol] 7.6 10*3/uL 2.0-7.7 [facility] Neutrophils/100 WBC (Bld) 81.6 % 47-70 [facility] Potassium [Moles/Vol] 3.9 mmol/L 3.5-5.1 [facility] Protein [Mass/Vol] 7.3 g/dL 6.4-8.2 [facility] Sodium [Moles/Vol] 133 mmol/L 136-145 [facility] WBC (Bld) [#/Vol] 9.3 10*3/uL 4.4-11.0 [facility] Blood erythrocytes count (nu mber/volume)Ordered By: Caprice Jerry on 10-10-2023 RBC (Bld) [#/Vol] 4.14 10*6/uL 4.2-5.4 [facility] Blood hemoglobin measurement (mass/volume)Ordered By: Caprice Jerry on 10-10-2023 Hemoglobin (Bld) [Mass/Vol] 13.5 g/dL 12.0-15.0 [facility] Blood lymphocytes/100 leukoc ytesOrdered By: Caprice Jerry on 10-10-2023 Lymphocytes/100 WBC (Bld) 10.6 % 19-41 [facility] Blood monocytes/100 leukocyt esOrdered By: Caprice Jerry on 10-10-2023 Monocytes/100 WBC (Bld) 7.0 % 0-10 [facility] Blood platelet mean volumeOr dered By: Caprice Jerry on 10-10-2023 Platelet mean volume (Bld) [Entitic vol] 9.7 fL 6.2-12.0 [facility] Determination of erythrocyte mean corpuscular volume (MCV)Ordered By: Caprice Jerry on 10-10-2023 MCV (RBC) [Entitic vol] 98.3 fL 81-99 [facility] Direct bilirubinOrdered By: Caprice Jerry on 10-10-2023 Bilirubin.direct [Mass/Vol] 0.30 mg/dL 0.00-0.30 [facility] Hematocrit Auto (Bld) [Volum e fraction]Ordered By: Caprice Jerry on 10-10-2023 Hematocrit (Bld) [Volume fraction] 40.7 % 37-47 [facility] Influenza virus A and B and SARS-CoV-2 (COVID-19) Ag panel - Upper respiratory specimOrdered By: Caprice Jerry on 10-10-2023 SARS-CoV-2 (COVID-19) RNA ALLEY+probe Ql (Resp) [facility] Laboratory - Chemistry and C hemistry - challengeOrdered By: Caprice Jerry on 10-10-2023 ALP [Catalytic activity/Vol] 97 U/L 45-117 [facility] ALT [Catalytic activity/Vol] 54 U/L 13-56 [facility] CO2 [Moles/Vol] 22.0 mmol/L 21.0-32.0 [facility] Globulin (S) [Mass/Vol] 3.8 g/dL 2.2-4.2 [facility] Lipase [Catalytic activity/Vol] 45 U/L 13-75 [facility] Comment on above: Please note:LIPASE r evised reference range effective 23. New Lipase methodology. Expected to produce lower values than the previous assay method. NEW Reference Range: 13 - 75 U/L Urea nitrogen/Creatinine [Mass ratio] 8.9 mg/mg 10-20 [facility] Laboratory - Hematology and Cell countsOrdered By: Caprice Jerry on 10-10-2023 Erythrocyte distribution width (RBC) [Entitic vol] 44.4 fL 35.1-43.9 [facility] Erythrocyte distribution width (RBC) [Ratio] 12.4 % 11.6-14.6 [facility] Immature granulocytes/100 WBC (Bld) 0.300 % 0.0-0.9 [facility] Comment on above: IG% - Immature Granu locytes (promyelocytes, myelocytes and metamyelocytes) > 1% indicates that a LEFT SHIFT is Present. MCH (RBC) [Entitic mass] 32.6 pg 27.0-32.0 [facility] Nucleated RBC/100 WBC (Bld) [Ratio] 0 % 0-5 [facility] MCHC Auto (RBC) [Mass/Vol]Or dered By: Caprice Jerry on 10-10-2023 MCHC (RBC) [Mass/Vol] 33.2 g/dL 32-36 [facility] No Panel InformationOrdered By: Caprice Jerry on 10-10-2023 D-Dimer Quantitative (PE/DVT) 0.45 FEU/ug/m 0.27-0.49 [facility] Comment on above: NORMAL D-Dimer level (<0.50) indicates no DVT or PE. Estimated Creatinine Clearance Calc 31.78 ml/min [facility] Estimated GFR (MDRD) Amer 36 mL/min >60 [facility] Comment on above: GFR Calc Estimated GFR (MDRD) Non-Af Amer 30 mL/min >60 [facility] Comment on above: Non- GFR Calc Troponin I High Sensitivity 12 pg/mL 3.0-54.0 [facility] Comment on above: Please Note: New Miri t Units and Gender Specific Reference Ranges. For more information see Policy Stat Procedure [place] High Sensitivity Troponin (TNIH) and attachments. Platelets bldOrdered By: Leona Jerry on 10-10-2023 Platelets (Bld) [#/Vol] 255 10*3/uL 150-450 [facility] Serum or plasma albumin alphonso urement (mass/volume)Ordered By: Caprice Jerry on 10-10-2023 Albumin [Mass/Vol] 3.5 g/dL 3.2-5.0 [facility] Serum or plasma calcium alphonso urement (mass/volume)Ordered By: Caprice Jerry on 10-10-2023 Calcium [Mass/Vol] 8.1 mg/dL 8.5-10.1 [facility] Serum or plasma creatinine m easurement (mass/volume)Ordered By: Caprice Jerry on 10-10-2023 Creatinine [Mass/Vol] 1.91 mg/dL 0.55-1.02 [facility] Comment on above: The validity of the calculated GFR & GFRAA in patients over 70 years has not been determined. Clinical correlation is essential. Serum or plasma urea nitroge n measurement (mass/volume)Ordered By: Caprice Jerry on 10-10-2023 Urea nitrogen [Mass/Vol] 17 mg/dL 06-15 [facility] Thin prep Papanicolaou smear with manual screeningOrdered By: Caprice Jerry on 10-10-2023 Thin prep Papanicolaou smear with manual screening 68 U/L 15 [facility] Thin prep Papanicolaou smear with manual screening 8 5-15 [facility] No Panel Informationon 09-15 POC SARS CoV-2 Antigen Negative [facility] Basophil percentageOrdered B y: Jim Manriquez on 08-25-2023 Bilirubin [Mass/Vol] 0.20 mg/dL 0.20-1.00 [facility] Comment on above: For patients on eltr ombopag therapy, use of Dimension [place] TBIL is not recommended. Cholesterol [Mass/Vol] 224 mg/dL <200 [facility] Comment on above: <200 mg/dL Desirable 200-240 mg/dL Borderline >240 mg/dL High Risk Protein [Mass/Vol] 7.2 g/dL 6.4-8.2 [facility] Triglyceride [Mass/Vol] 405 mg/dL <199 [facility] Comment on above: The drugs N-Acetylcy [...] on 08-25-2023 Bilirubin.direct [Mass/Vol] 0.10 mg/dL 0.00-0.30 [facility] Laboratory - Chemistry and C hemistry - challengeOrdered By: Jim Manriquez on 08-25-2023 ALP [Catalytic activity/Vol] 97 U/L 45-117 [facility] ALT [Catalytic activity/Vol] 88 U/L 13-56 [facility] Globulin (S) [Mass/Vol] 3.7 g/dL 2.2-4.2 [facility] Lipase [Catalytic activity/Vol] 53 U/L 13-75 [facility] Comment on above: Please note:LIPASE r evised reference range effective 23. New Lipase methodology. Expected to produce lower values than the previous assay method. NEW Reference Range: 13 - 75 U/L Serum or plasma albumin alphonso urement (mass/volume)Ordered By: Jim Manriquez on 08-25-2023 Albumin [Mass/Vol] 3.5 g/dL 3.2-5.0 [facility] Serum or plasma cholesterol in HDL measurement (mass/volume)Ordered By: Jim Manriquez on 08-25-2023 Cholesterol in HDL [Mass/Vol] 61 mg/dL >40 [facility] Comment on above: The drugs N-Acetylcy steine and Metamizole may falsely depress this assay. Reference Range HDL <40 mg/dL Low HDL Cholesterol HDL >or= 60 mg/dL High HDL Cholesterol Serum or plasma cholesterol in VLDL measurement (mass/volume)Ordered By: Jim Manriquez on 08-25-2023 Cholesterol in VLDL [Mass/Vol] [facility] Comment on above: Test not performed Serum or plasma low density lipoprotein (LDL) cholesterol measurement (mass/volume)Ordered By: Jim Manriquez on 08-25-2023 Cholesterol in LDL [Mass/Vol] [facility] Comment on above: Test not performed Thin prep Papanicolaou smear with manual screeningOrdered By: Jim Manriquez on 08-25-2023 Thin prep Papanicolaou smear with manual screening 43 U/L 15-37 [facility] Absolute lymphocyte countOrd ered By: Jennifer Davila on 08-23-2023 Lymphocytes Auto (Unsp spec) [#/Vol] 2.29 10*3/uL 0.83-4.51 [facility] Basophil percentageOrdered B y: Jennifer Davila on 08-23-2023 Basophil percentage 0 SEEN /hpf 0-5 [facility] Basophils/100 WBC (Bld) 0.5 % 0-1 [facility] Bilirubin [Mass/Vol] 0.30 mg/dL 0.20-1.00 [facility] Comment on above: For patients on eltr ombopag therapy, use of Dimension [place] TBIL is not recommended. Chloride [Moles/Vol] 103 mmol/L 98-107 [facility] Eosinophils/100 WBC (Bld) 1.6 % 0-5 [facility] Glucose [Mass/Vol] 205 mg/dL 74-106 [facility] Comment on above: Glucose result great er than or equal to 200 mg/dLsuggests DIABETES MELLITUS per A.D.A. criteria. Neutrophils (Bld) [#/Vol] 7.5 10*3/uL 2.0-7.7 [facility] Neutrophils/100 WBC (Bld) 69.4 % 47-70 [facility] Potassium [Moles/Vol] 4.3 mmol/L 3.5-5.1 [facility] Protein [Mass/Vol] 7.8 g/dL 6.4-8.2 [facility] Sodium [Moles/Vol] 135 mmol/L 136-145 [facility] WBC (Bld) [#/Vol] 10.8 10*3/uL 4.4-11.0 [facility] Bilirubin Test strip Ql (U)O rdered By: Jennifer Davila on 08-23-2023 Bilirubin Ql (U) Negative Negative [facility] Blood erythrocytes count (nu mber/volume)Ordered By: Jennifer Davila on 08-23-2023 RBC (Bld) [#/Vol] 4.30 10*6/uL 4.2-5.4 [facility] Blood hemoglobin measurement (mass/volume)Ordered By: Jennifer Davila on 08-23-2023 Hemoglobin (Bld) [Mass/Vol] 14.0 g/dL 12.0-15.0 [facility] Blood lymphocytes/100 leukoc ytesOrdered By: Jennifer Davila on 08-23-2023 Lymphocytes/100 WBC (Bld) 21.3 % 19-41 [facility] Blood monocytes/100 leukocyt esOrdered By: Jennifer Davila on 08-23-2023 Monocytes/100 WBC (Bld) 6.7 % 0-10 [facility] Blood platelet mean volumeOr dered By: Jennifer Davila on 08-23-2023 Platelet mean volume (Bld) [Entitic vol] 9.6 fL 6.2-12.0 [facility] Determination of erythrocyte mean corpuscular volume (MCV)Ordered By: Jennifer Davila on 08-23-2023 MCV (RBC) [Entitic vol] 97.9 fL 81-99 [facility] Hematocrit Auto (Bld) [Volum e fraction]Ordered By: Jennifer Davila on 08-23-2023 Hematocrit (Bld) [Volume fraction] 42.1 % 37-47 [facility] Ketones Test strip Ql (U)Ord ered By: Jennifer Davila on 08-23-2023 Ketones Ql (U) Negative Negative [facility] Laboratory - Chemistry and C hemistry - challengeOrdered By: Jennifer Davila on 08-23-2023 ALP [Catalytic activity/Vol] 69 U/L 45-117 [facility] ALT [Catalytic activity/Vol] 26 U/L 13-56 [facility] CO2 [Moles/Vol] 24.0 mmol/L 21.0-32.0 [facility] Globulin (S) [Mass/Vol] 4.2 g/dL 2.2-4.2 [facility] Lipase [Catalytic activity/Vol] 41 U/L 13-75 [facility] Comment on above: Please note:LIPASE r evised reference range effective 23. New Lipase methodology. Expected to produce lower values than the previous assay method. NEW Reference Range: 13 - 75 U/L Urea nitrogen/Creatinine [Mass ratio] 9.5 mg/mg 10-20 [facility] Laboratory - Hematology and Cell countsOrdered By: Jennifer Davila on 08-23-2023 Erythrocyte distribution width (RBC) [Entitic vol] 45.9 fL 35.1-43.9 [facility] Erythrocyte distribution width (RBC) [Ratio] 12.8 % 11.6-14.6 [facility] Immature granulocytes/100 WBC (Bld) 0.500 % 0.0-0.9 [facility] Comment on above: IG% - Immature Granu locytes (promyelocytes, myelocytes and metamyelocytes) > 1% indicates that a LEFT SHIFT is Present. MCH (RBC) [Entitic mass] 32.6 pg 27.0-32.0 [facility] Nucleated RBC/100 WBC (Bld) [Ratio] 0 % 0-5 [facility] MCHC Auto (RBC) [Mass/Vol]Or dered By: Jennifer Davila on 08-23-2023 MCHC (RBC) [Mass/Vol] 33.3 g/dL 32-36 [facility] Mucus LM Ql (Urine sed)Order ed By: Jennifer Davila on 08-23-2023 Mucus Ql (Urine sed) 0 SEEN /hpf [facility] Nitrite Test strip Ql (U)Ord ered By: Jennifer Davila on 08-23-2023 Nitrite Ql (U) Negative Negative [facility] No Panel InformationOrdered By: Jennifer Davila on 08-23-2023 Estimated Creatinine Clearance Calc 57.81 ml/min [facility] Estimated GFR (MDRD) Amer 72 mL/min >60 [facility] Comment on above: GFR Calc Estimated GFR (MDRD) Non-Af Amer 60 mL/min >60 [facility] Comment on above: Non- GFR Calc Troponin I High Sensitivity 3 pg/mL 3.0-54.0 [facility] Comment on above: Please Note: New Miri t Units and Gender Specific Reference Ranges. For more information see Policy Stat Procedure [facility] High Sensitivity Troponin (TNIH) and attachments. Platelets bldOrdered By: Kole Davila on 08-23-2023 Platelets (Bld) [#/Vol] 264 10*3/uL 150-450 [facility] Protein Test strip Ql (U)Ord ered By: Jennifer Davila on 08-23-2023 Protein Ql (U) Negative Negative [facility] Serum or plasma albumin alphonso urement (mass/volume)Ordered By: Jennifer Davila on 08-23-2023 Albumin [Mass/Vol] 3.6 g/dL 3.2-5.0 [facility] Serum or plasma albumin/glob ulin mass ratioOrdered By: Jennifer Davila on 08-23-2023 Albumin/Globulin [Mass ratio] 0.9 {ratio} 0.9-2.4 [facility] Serum or plasma calcium alphonso urement (mass/volume)Ordered By: Jennifer Davila on 08-23-2023 Calcium [Mass/Vol] 8.8 mg/dL 8.5-10.1 [facility] Serum or plasma creatinine m easurement (mass/volume)Ordered By: Jennifer Davila on 08-23-2023 Creatinine [Mass/Vol] 1.05 mg/dL 0.55-1.02 [facility] Comment on above: The validity of the calculated GFR & GFRAA in patients over 70 years has not been determined. Clinical correlation is essential. Serum or plasma urea nitroge n measurement (mass/volume)Ordered By: Jennifer Davila on 08-23-2023 Urea nitrogen [Mass/Vol] 10 mg/dL 7-18 [facility] Squamous epithelial cells de tection in urine sediment by light microscopyOrdered By: Jennifer Davila on 08-23-2023 Epithelial cells.squamous LM Ql (Urine sed) 0-5 SEEN /hpf 5-10 [facility] Thin prep Papanicolaou smear with manual screeningOrdered By: Jennifer Davila on 08-23-2023 Thin prep Papanicolaou smear with manual screening 18 U/L 15-37 [facility] Thin prep Papanicolaou smear with manual screening 8 5-15 [facility] Urine blood detectionOrdered By: Jennifer Davila on 08-23-2023 RBC Ql (U) Negative Negative [facility] RBC Ql (U) 0 SEEN /hpf 0-5 [facility] Urine clarityOrdered By: Kole Davila on 08-23-2023 Clarity (U) Clear Clear [facility] Urine color determinationOrd ered By: Jennifer Davila on 08-23-2023 Color (U) Yellow Yellow [facility] Urine glucose detectionOrder ed By: Jennifer Davila on 08-23-2023 Glucose Ql (U) 1000 mg/dl Normal [facility] Urine leukocyte esterase det ection by dipstickOrdered By: Jennifer Davila on 08-23-2023 Leukocyte esterase Test strip Ql (U) Negative Negative [facility] Urine pHOrdered By: Suha Davila on 08-23-2023 pH (U) 6.0 [pH] 5.0 - 8.0 [facility] Urine sediment bacteria coun t by microscopy (number/high power field)Ordered By: Jennifer Davila on 08-23-2023 Bacteria LM.HPF (Urine sed) [#/Area] 0 /[HPF] None Seen [facility] Urine specific gravity measu rementOrdered By: Jennifer Davila on 08-23-2023 Specific gravity (U) [Rel density] 1.010 1.002-1.030 [facility] Urobilinogen Auto test strip Ql (U)Ordered By: Jennifer Davila on 08-23-2023 Urobilinogen Ql (U) Normal mg/dl Normal [facility] Absolute lymphocyte countOrd ered By: Caprice Jerry on 07-29-2023 Lymphocytes Auto (Unsp spec) [#/Vol] 2.24 10*3/uL 0.83-4.51 [facility] Basophil percentageOrdered B y: Caprice Jerry on 07-29-2023 Basophils/100 WBC (Bld) 0.5 % 0-1 [facility] Bilirubin [Mass/Vol] 0.30 mg/dL 0.20-1.00 [facility] Comment on above: For patients on eltr ombopag therapy, use of Dimension [place] TBIL is not recommended. Chloride [Moles/Vol] 102 mmol/L 98-107 [facility] Eosinophils/100 WBC (Bld) 1.6 % 0-5 [facility] Glucose [Mass/Vol] 173 mg/dL 74-106 [facility] Comment on above: Fasting Glucose resu lt greater than or equal to 126 mg/dL suggests DIABETES MELLITUS per A.D.A. criteria. Neutrophils (Bld) [#/Vol] 5.6 10*3/uL 2.0-7.7 [facility] Neutrophils/100 WBC (Bld) 63.7 % 47-70 [facility] Potassium [Moles/Vol] 3.9 mmol/L 3.5-5.1 [facility] Protein [Mass/Vol] 7.3 g/dL 6.4-8.2 [facility] Sodium [Moles/Vol] 135 mmol/L 136-145 [facility] WBC (Bld) [#/Vol] 8.8 10*3/uL 4.4-11.0 [facility] Beta hCG serum qualOrdered B y: Caprice Jerry on 07-29-2023 Beta HCG ( test) Ql Negative [facility] Blood erythrocytes count (nu mber/volume)Ordered By: Caprice Jerry on 07-29-2023 RBC (Bld) [#/Vol] 3.94 10*6/uL 4.2-5.4 [facility] Blood hemoglobin measurement (mass/volume)Ordered By: Caprice Jerry on 07-29-2023 Hemoglobin (Bld) [Mass/Vol] 13.1 g/dL 12.0-15.0 [facility] Blood lymphocytes/100 leukoc ytesOrdered By: Caprice Jerry on 07-29-2023 Lymphocytes/100 WBC (Bld) 25.4 % 19-41 [facility] Blood monocytes/100 leukocyt esOrdered By: Caprice Jerry on 07-29-2023 Monocytes/100 WBC (Bld) 8.5 % 0-10 [facility] Blood platelet mean volumeOr dered By: Caprice Jerry on 07-29-2023 Platelet mean volume (Bld) [Entitic vol] 9.6 fL 6.2-12.0 [facility] Determination of erythrocyte mean corpuscular volume (MCV)Ordered By: Caprice Jerry on 07-29-2023 MCV (RBC) [Entitic vol] 97.7 fL 81-99 [facility] Direct bilirubinOrdered By: Caprice Jerry on 07-29-2023 Bilirubin.direct [Mass/Vol] 0.08 mg/dL 0.00-0.30 [facility] Hematocrit Auto (Bld) [Volum e fraction]Ordered By: Caprice Jerry on 07-29-2023 Hematocrit (Bld) [Volume fraction] 38.5 % 37-47 [facility] Laboratory - Chemistry and C hemistry - challengeOrdered By: Caprice Jerry on 07-29-2023 ALP [Catalytic activity/Vol] 93 U/L 45-117 [facility] ALT [Catalytic activity/Vol] 45 U/L 13-56 [facility] CO2 [Moles/Vol] 26.0 mmol/L 21.0-32.0 [facility] Globulin (S) [Mass/Vol] 3.8 g/dL 2.2-4.2 [facility] Lipase [Catalytic activity/Vol] 32 U/L 13-75 [facility] Comment on above: Please note:LIPASE r evised reference range effective 23. New Lipase methodology. Expected to produce lower values than the previous assay method. NEW Reference Range: 13 - 75 U/L Urea nitrogen/Creatinine [Mass ratio] 12.5 mg/mg 10-20 [facility] Laboratory - Hematology and Cell countsOrdered By: Caprice Jerry on 07-29-2023 Erythrocyte distribution width (RBC) [Entitic vol] 45.1 fL 35.1-43.9 [facility] Erythrocyte distribution width (RBC) [Ratio] 12.7 % 11.6-14.6 [facility] Immature granulocytes/100 WBC (Bld) 0.300 % 0.0-0.9 [facility] Comment on above: IG% - Immature Granu locytes (promyelocytes, myelocytes and metamyelocytes) > 1% indicates that a LEFT SHIFT is Present. MCH (RBC) [Entitic mass] 33.2 pg 27.0-32.0 [facility] Nucleated RBC/100 WBC (Bld) [Ratio] 0 % 0-5 [facility] MCHC Auto (RBC) [Mass/Vol]Or dered By: Caprice Jerry on 07-29-2023 MCHC (RBC) [Mass/Vol] 34.0 g/dL 32-36 [facility] No Panel InformationOrdered By: Caprice Jerry on 07-29-2023 Troponin I High Sensitivity 4 pg/mL 3.0-54.0 [facility] Comment on above: Please Note: New Miri t Units and Gender Specific Reference Ranges. For more information see Policy Stat Procedure [facility] High Sensitivity Troponin (TNIH) and attachments. Estimated Creatinine Clearance Calc 68.98 ml/min [facility] Estimated GFR (MDRD) Amer 89 mL/min >60 [facility] Comment on above: GFR Calc Estimated GFR (MDRD) Non-Af Amer 74 mL/min >60 [facility] Comment on above: Non- GFR Calc Platelets bldOrdered By: Leona Jerry on 07-29-2023 Platelets (Bld) [#/Vol] 281 10*3/uL 150-450 [facility] Serum or plasma albumin alphonso urement (mass/volume)Ordered By: Caprice Jerry on 07-29-2023 Albumin [Mass/Vol] 3.5 g/dL 3.2-5.0 [facility] Serum or plasma calcium alphonso urement (mass/volume)Ordered By: Caprice Jerry on 07-29-2023 Calcium [Mass/Vol] 8.5 mg/dL 8.5-10.1 [facility] Serum or plasma creatinine m easurement (mass/volume)Ordered By: Caprice Jerry on 07-29-2023 Creatinine [Mass/Vol] 0.88 mg/dL 0.55-1.02 [facility] Comment on above: The validity of the calculated GFR & GFRAA in patients over 70 years has not been determined. Clinical correlation is essential. Serum or plasma urea nitroge n measurement (mass/volume)Ordered By: Caprice Jerry on 07-29-2023 Urea nitrogen [Mass/Vol] 11 mg/dL 7-18 [facility] Thin prep Papanicolaou smear with manual screeningOrdered By: Caprice Jerry on 07-29-2023 Thin prep Papanicolaou smear with manual screening 24 U/L 15-37 [facility] Thin prep Papanicolaou smear with manual screening 7 5-15 [facility] Absolute lymphocyte countOrd ered By: Milana Garcia on 07-19-2023 Lymphocytes Auto (Unsp spec) [#/Vol] 2.51 10*3/uL 0.83-4.51 [facility] Basophil percentageOrdered B y: Milana Garcia on 07-19-2023 Basophil percentage 3.1 mg/dL 2.5-4.9 [facility] Basophils/100 WBC (Bld) 0.4 % 0-1 [facility] Bilirubin [Mass/Vol] 0.50 mg/dL 0.20-1.00 [facility] Comment on above: For patients on eltr ombopag therapy, use of Dimension [place] TBIL is not recommended. Chloride [Moles/Vol] 106 mmol/L 98-107 [facility] Eosinophils/100 WBC (Bld) 3.2 % 0-5 [facility] Glucose [Mass/Vol] 123 mg/dL 74-106 [facility] Comment on above: Fasting Glucose resu lt from 100 to 125 mg/dL suggests IMPAIRED HOMEOSTASIS per A.D.A. criteria. Neutrophils (Bld) [#/Vol] 3.7 10*3/uL 2.0-7.7 [facility] Neutrophils/100 WBC (Bld) 52.0 % 47-70 [facility] Potassium [Moles/Vol] 3.5 mmol/L 3.5-5.1 [facility] Protein [Mass/Vol] 6.9 g/dL 6.4-8.2 [facility] Sodium [Moles/Vol] 140 mmol/L 136-145 [facility] WBC (Bld) [#/Vol] 7.2 10*3/uL 4.4-11.0 [facility] Blood erythrocytes count (nu mber/volume)Ordered By: Milana Garcia on 07-19-2023 RBC (Bld) [#/Vol] 3.83 10*6/uL 4.2-5.4 [facility] Blood hemoglobin measurement (mass/volume)Ordered By: Milana Garcia on 07-19-2023 Hemoglobin (Bld) [Mass/Vol] 12.3 g/dL 12.0-15.0 [facility] Blood lymphocytes/100 leukoc ytesOrdered By: Milana Garcia on 07-19-2023 Lymphocytes/100 WBC (Bld) 35.1 % 19-41 [facility] Blood monocytes/100 leukocyt esOrdered By: Milana Garcia on 07-19-2023 Monocytes/100 WBC (Bld) 9.0 % 0-10 [facility] Blood platelet mean volumeOr dered By: Milana Garcia on 07-19-2023 Platelet mean volume (Bld) [Entitic vol] 9.6 fL 6.2-12.0 [facility] Determination of erythrocyte mean corpuscular volume (MCV)Ordered By: Milana Garcia on 07-19-2023 MCV (RBC) [Entitic vol] 97.9 fL 81-99 [facility] Hematocrit Auto (Bld) [Volum e fraction]Ordered By: Milana Garcia on 07-19-2023 Hematocrit (Bld) [Volume fraction] 37.5 % 37-47 [facility] Laboratory - Chemistry and C hemistry - challengeOrdered By: Milana Garcia on 07-19-2023 ALP [Catalytic activity/Vol] 68 U/L 45-117 [facility] ALT [Catalytic activity/Vol] 28 U/L 13-56 [facility] CO2 [Moles/Vol] 27.0 mmol/L 21.0-32.0 [facility] Cobalamin (Vitamin B12) [Mass/Vol] 534 pg/mL 211-911 [facility] Globulin (S) [Mass/Vol] 3.6 g/dL 2.2-4.2 [facility] Magnesium [Mass/Vol] 1.6 mg/dL 1.6-2.6 [facility] Urea nitrogen/Creatinine [Mass ratio] 10.4 mg/mg 10-20 [facility] Laboratory - Hematology and Cell countsOrdered By: Milana Garcia on 07-19-2023 Erythrocyte distribution width (RBC) [Entitic vol] 43.8 fL 35.1-43.9 [facility] Erythrocyte distribution width (RBC) [Ratio] 12.3 % 11.6-14.6 [facility] Immature granulocytes/100 WBC (Bld) 0.300 % 0.0-0.9 [facility] Comment on above: IG% - Immature Granu locytes (promyelocytes, myelocytes and metamyelocytes) > 1% indicates that a LEFT SHIFT is Present. MCH (RBC) [Entitic mass] 32.1 pg 27.0-32.0 [facility] Nucleated RBC/100 WBC (Bld) [Ratio] 0 % 0-5 [facility] MCHC Auto (RBC) [Mass/Vol]Or dered By: Milana Garcia on 07-19-2023 MCHC (RBC) [Mass/Vol] 32.8 g/dL 32-36 [facility] No Panel InformationOrdered By: Milana Garcia on 07-19-2023 Estimated GFR (MDRD) Amer 121 mL/min >60 [facility] Comment on above: GFR Calc Estimated GFR (MDRD) Non-Af Amer 100 mL/min >60 [facility] Comment on above: Non- GFR Calc Thyroid Stimulating Hormone (TSH) 1.07 uIU/mL 0.358-3.74 [facility] Platelets bldOrdered By: Yamel Garcia on 07-19-2023 Platelets (Bld) [#/Vol] 245 10*3/uL 150-450 [facility] Serum or plasma albumin alphonso urement (mass/volume)Ordered By: Milana Garcia on 07-19-2023 Albumin [Mass/Vol] 3.3 g/dL 3.2-5.0 [facility] Serum or plasma albumin/glob ulin mass ratioOrdered By: Milana Garcia on 07-19-2023 Albumin/Globulin [Mass ratio] 0.9 {ratio} 0.9-2.4 [facility] Serum or plasma calcium alphonso urement (mass/volume)Ordered By: Milana Garcia on 07-19-2023 Calcium [Mass/Vol] 8.4 mg/dL 8.5-10.1 [facility] Serum or plasma creatinine m easurement (mass/volume)Ordered By: Milana Garcia on 07-19-2023 Creatinine [Mass/Vol] 0.68 mg/dL 0.55-1.02 [facility] Comment on above: The validity of the calculated GFR & GFRAA in patients over 70 years has not been determined. Clinical correlation is essential. Serum or plasma folate measu rement (mass/volume)Ordered By: Milana Garcia on 07-19-2023 Folate [Mass/Vol] 58.30 ng/mL 3.1-55.4 [facility] Serum or plasma urea nitroge n measurement (mass/volume)Ordered By: Milana Garcia on 07-19-2023 Urea nitrogen [Mass/Vol] 7 mg/dL 7-18 [facility] Thin prep Papanicolaou smear with manual screeningOrdered By: Milana Garcia on 07-19-2023 Thin prep Papanicolaou smear with manual screening 19 U/L 15-37 [facility] Thin prep Papanicolaou smear with manual screening 7 5-15 [facility] No Panel InformationOrdered By: Dr. Jerry on 05-25-2023 Troponin I High Sensitivity 3 pg/mL 3.0-54.0 [facility] Comment on above: Please Note: New [place]i t Units and Gender Specific Reference Ranges. For more information see Policy Stat Procedure [facility] High Sensitivity Troponin (TNIH) and attachments. Absolute lymphocyte countOrd ered By: Dr. Jerry on 05-24-2023 Lymphocytes Auto (Unsp spec) [#/Vol] 3.25 10*3/uL 0.83-4.51 [facility] Basophil percentageOrdered B y: Dr. Jerry on 05-24-2023 Basophil percentage 0 SEEN /hpf 0-5 [facility] Basophils/100 WBC (Bld) 0.7 % 0-1 [facility] Bilirubin [Mass/Vol] 0.20 mg/dL 0.20-1.00 [facility] Comment on above: For patients on eltr ombopag therapy, use of Dimension [place] TBIL is not recommended. Chloride [Moles/Vol] 112 mmol/L 98-107 [facility] Eosinophils/100 WBC (Bld) 2.2 % 0-5 [facility] Glucose [Mass/Vol] 127 mg/dL 74-106 [facility] Comment on above: Fasting Glucose resu lt greater than or equal to 126 mg/dL suggests DIABETES MELLITUS per A.D.A. criteria. Neutrophils (Bld) [#/Vol] 2.9 10*3/uL 2.0-7.7 [facility] Neutrophils/100 WBC (Bld) 40.3 % 47-70 [facility] Potassium [Moles/Vol] 5.9 mmol/L 3.5-5.1 [facility] Comment on above: Moderate Hemolysis, Result may be falsely increased. Protein [Mass/Vol] 6.7 g/dL 6.4-8.2 [facility] Sodium [Moles/Vol] 138 mmol/L 136-145 [facility] WBC (Bld) [#/Vol] 7.2 10*3/uL 4.4-11.0 [facility] Beta hCG serum qualOrdered B y: Dr. Jerry on 05-24-2023 Beta HCG ( test) Ql Negative [facility] Bilirubin Test strip Ql (U)O rdered By: Dr. Jerry on 05-24-2023 Bilirubin Ql (U) Negative Negative [facility] Blood erythrocytes count (nu mber/volume)Ordered By: Dr. Jerry on 05-24-2023 RBC (Bld) [#/Vol] 3.88 10*6/uL 4.2-5.4 [facility] Blood hemoglobin measurement (mass/volume)Ordered By: Dr. Jerry on 05-24-2023 Hemoglobin (Bld) [Mass/Vol] 12.9 g/dL 12.0-15.0 [facility] Blood lymphocytes/100 leukoc ytesOrdered By: Dr. Jerry on 05-24-2023 Lymphocytes/100 WBC (Bld) 45.0 % 19-41 [facility] Blood monocytes/100 leukocyt esOrdered By: Dr. Jerry on 05-24-2023 Monocytes/100 WBC (Bld) 11.4 % 0-10 [facility] Blood platelet mean volumeOr dered By: Dr. Jerry on 05-24-2023 Platelet mean volume (Bld) [Entitic vol] 9.8 fL 6.2-12.0 [facility] Determination of erythrocyte mean corpuscular volume (MCV)Ordered By: Dr. Jerry on 05-24-2023 MCV (RBC) [Entitic vol] 100.0 fL 81-99 [facility] Direct bilirubinOrdered By: Dr. Jerry on 05-24-2023 Bilirubin.direct [Mass/Vol] mg/dL 0.00-0.30 [facility] Hematocrit Auto (Bld) [Volum e fraction]Ordered By: Dr. Jerry on 05-24-2023 Hematocrit (Bld) [Volume fraction] 38.8 % 37-47 [facility] Ketones Test strip Ql (U)Ord ered By: Dr. Jerry on 05-24-2023 Ketones Ql (U) Negative Negative [facility] Laboratory - Chemistry and C hemistry - challengeOrdered By: Dr. Jerry on 05-24-2023 ALP [Catalytic activity/Vol] 57 U/L 45-117 [facility] ALT [Catalytic activity/Vol] 27 U/L 13-56 [facility] CO2 [Moles/Vol] 19.0 mmol/L 21.0-32.0 [facility] Globulin (S) [Mass/Vol] 3.8 g/dL 2.2-4.2 [facility] Lipase [Catalytic activity/Vol] 64 U/L 13-75 [facility] Comment on above: Please note:LIPASE r evised reference range effective 23. New Lipase methodology. Expected to produce lower values than the previous assay method. NEW Reference Range: 13 - 75 U/L Urea nitrogen/Creatinine [Mass ratio] 9.1 mg/mg 10-20 [facility] Laboratory - Hematology and Cell countsOrdered By: Dr. Jerry on 05-24-2023 Erythrocyte distribution width (RBC) [Entitic vol] 46.2 fL 35.1-43.9 [facility] Erythrocyte distribution width (RBC) [Ratio] 12.6 % 11.6-14.6 [facility] Immature granulocytes/100 WBC (Bld) 0.400 % 0.0-0.9 [facility] [facility] Comment on above: IG% - Immature Granu locytes (promyelocytes, myelocytes and metamyelocytes) > 1% indicates that a LEFT SHIFT is Present. MCH (RBC) [Entitic mass] 33.2 pg 27.0-32.0 [facility] Nucleated RBC/100 WBC (Bld) [Ratio] 0 % 0-5 [facility] MCHC Auto (RBC) [Mass/Vol]Or dered By: Dr. Jerry on 05-24-2023 MCHC (RBC) [Mass/Vol] 33.2 g/dL 32-36 [facility] Mucus LM Ql (Urine sed)Order ed By: Dr. Jerry on 05-24-2023 Mucus Ql (Urine sed) 0 SEEN /hpf [facility] Nitrite Test strip Ql (U)Ord ered By: Dr. Jerry on 05-24-2023 Nitrite Ql (U) Negative Negative [facility] No Panel InformationOrdered By: Dr. Jerry on 05-24-2023 Estimated Creatinine Clearance Calc 45.99 ml/min [facility] Estimated GFR (MDRD) Amer 56 mL/min >60 [facility] Comment on above: GFR Calc Estimated GFR (MDRD) Non-Af Amer 46 mL/min >60 [facility] Comment on above: Non- GFR Calc Ethyl Alcohol Level 193.0 mg/dL [facility] Comment on above: The serum:whole bloo d ethanol ratio is approximately 1.14and varies slightly with hematocrit. Medical Alcohol reference interval and critical value innon-tolerant individuals; 50 - 100 Impairment 100 Intoxication 100 - 250 Severe Poisoning 250 - 400 Deep/possible fatal coma Platelets bldOrdered By: Dr. Jerry on 05-24-2023 Platelets (Bld) [#/Vol] 276 10*3/uL 150-450 [facility] Protein Test strip Ql (U)Ord ered By: Dr. Jerry on 05-24-2023 Protein Ql (U) Negative Negative [facility] Serum or plasma acetone alphonso urement (mass/volume)Ordered By: Dr. Jerry on 05-24-2023 Acetone [Mass/Vol] Negative NEG [facility] Serum or plasma albumin alphonso urement (mass/volume)Ordered By: Dr. Jerry on 05-24-2023 Albumin [Mass/Vol] 2.9 g/dL 3.2-5.0 [facility] Serum or plasma calcium alphonso urement (mass/volume)Ordered By: Dr. Jerry on 05-24-2023 Calcium [Mass/Vol] 7.5 mg/dL 8.5-10.1 [facility] Serum or plasma creatinine m easurement (mass/volume)Ordered By: Dr. Jerry on 05-24-2023 Creatinine [Mass/Vol] 1.32 mg/dL 0.55-1.02 [facility] Comment on above: The validity of the calculated GFR & GFRAA in patients over 70 years has not been determined. Clinical correlation is essential. Serum or plasma urea nitroge n measurement (mass/volume)Ordered By: Dr. Jerry on 05-24-2023 Urea nitrogen [Mass/Vol] 12 mg/dL 7-18 [facility] Squamous epithelial cells de tection in urine sediment by light microscopyOrdered By: Dr. Jerry on 05-24-2023 Epithelial cells.squamous LM Ql (Urine sed) 0 SEEN /hpf 5-10 [facility] Thin prep Papanicolaou smear with manual screeningOrdered By: Dr. Jerry on 05-24-2023 Thin prep Papanicolaou smear with manual screening 47 U/L 15-37 [facility] Comment on above: Moderate Hemolysis, Result may be falsely increased. Thin prep Papanicolaou smear with manual screening 7 5-15 [facility] Urine blood detectionOrdered By: Dr. Jerry on 05-24-2023 RBC Ql (U) Negative Negative [facility] RBC Ql (U) 0 SEEN /hpf 0-5 [facility] Urine clarityOrdered By: Dr. Jerry on 05-24-2023 Clarity (U) Clear Clear [facility] Urine color determinationOrd ered By: Dr. Jerry on 05-24-2023 Color (U) Yellow Yellow [facility] Urine glucose detectionOrder ed By: Dr. Jerry on 05-24-2023 Glucose Ql (U) 1000 mg/dl Normal [facility] Urine leukocyte esterase det ection by dipstickOrdered By: Dr. Jerry on 05-24-2023 Leukocyte esterase Test strip Ql (U) Negative Negative [facility] Urine pHOrdered By: Dr. Maximiliano morris on 05-24-2023 pH (U) 6.5 [pH] 5.0 - 8.0 [facility] Urine sediment bacteria coun t by microscopy (number/high power field)Ordered By: Dr. Jerry on 05-24-2023 Bacteria LM.HPF (Urine sed) [#/Area] 0 /[HPF] None Seen [facility] Urine specific gravity measu rementOrdered By: Dr. Jerry on 05-24-2023 Specific gravity (U) [Rel density] 1.005 1.002-1.030 [facility] Urobilinogen Auto test strip Ql (U)Ordered By: Dr. Jerry on 05-24-2023 Urobilinogen Ql (U) Normal mg/dl Normal [facility] Basophil percentageOrdered B y: Milana Garcia on 05-19-2023 Basophil percentage 2.6 mg/dL 2.5-4.9 [facility] Bilirubin [Mass/Vol] 0.30 mg/dL 0.20-1.00 [facility] Comment on above: For patients on eltr ombopag therapy, use of Dimension [place] TBIL is not recommended. Protein [Mass/Vol] 7.2 g/dL 6.4-8.2 [facility] Direct bilirubinOrdered By: Milana Garcia on 05-19-2023 Bilirubin.direct [Mass/Vol] 0.11 mg/dL 0.00-0.30 [facility] Laboratory - Chemistry and C hemistry - challengeOrdered By: Milana Garcia on 05-19-2023 ALP [Catalytic activity/Vol] 69 U/L 45-117 [facility] ALT [Catalytic activity/Vol] 22 U/L 13-56 [facility] Cobalamin (Vitamin B12) [Mass/Vol] 361 pg/mL 211-911 [facility] Free T4 [Mass/Vol] 0.78 ng/dL 0.76-1.46 [facility] Globulin (S) [Mass/Vol] 3.8 g/dL 2.2-4.2 [facility] Magnesium [Mass/Vol] 1.8 mg/dL 1.6-2.6 [facility] No Panel InformationOrdered By: Milana Garcia on 05-19-2023 Thyroid Stimulating Hormone (TSH) 1.95 uIU/mL 0.358-3.74 [facility] Serum or plasma albumin alphonso urement (mass/volume)Ordered By: Milana Garcia on 05-19-2023 Albumin [Mass/Vol] 3.4 g/dL 3.2-5.0 [facility] Serum or plasma ferritin alexis surement (mass/volume)Ordered By: Milana Garcia on 05-19-2023 Ferritin [Mass/Vol] 69 ng/mL 8-252 [facility] Serum or plasma folate measu rement (mass/volume)Ordered By: Milana Garcia on 05-19-2023 Folate [Mass/Vol] 4.00 ng/mL 3.1-55.4 [facility] Thin prep Papanicolaou smear with manual screeningOrdered By: Milana Garcia on 05-19-2023 Thin prep Papanicolaou smear with manual screening 18 U/L 15-37 [facility] No Panel InformationOrdered By: Dr. Dyer on 05-05-2023 Troponin I High Sensitivity < 3 pg/mL 3.0-54.0 [facility] Comment on above: Please Note: [place] t Units and Gender Specific Reference Ranges. For more information see Policy Stat Procedure [place] High Sensitivity Troponin (TNIH) and attachments. Absolute lymphocyte countOrd ered By: Dr. Dyer on 05-04-2023 Lymphocytes Auto (Unsp spec) [#/Vol] 3.17 10*3/uL 0.83-4.51 [facility] Basophil percentageOrdered B y: Dr. Dyer on 05-04-2023 Basophils/100 WBC (Bld) 0.4 % 0-1 [facility] Chloride [Moles/Vol] 105 mmol/L 98-107 [facility] Eosinophils/100 WBC (Bld) 2.7 % 0-5 [facility] Glucose [Mass/Vol] 103 mg/dL 74-106 [facility] Comment on above: Fasting Glucose resu lt from 100 to 125 mg/dL suggests IMPAIRED HOMEOSTASIS per A.D.A. criteria. Neutrophils (Bld) [#/Vol] 4.6 10*3/uL 2.0-7.7 [facility] Neutrophils/100 WBC (Bld) 51.3 % 47-70 [facility] Potassium [Moles/Vol] 3.4 mmol/L 3.5-5.1 [facility] Sodium [Moles/Vol] 138 mmol/L 136-145 [facility] WBC (Bld) [#/Vol] 8.9 10*3/uL 4.4-11.0 [facility] Blood erythrocytes count (nu mber/volume)Ordered By: Dr. Dyer on 05-04-2023 RBC (Bld) [#/Vol] 3.72 10*6/uL 4.2-5.4 [facility] Blood hemoglobin measurement (mass/volume)Ordered By: Dr. Dyer on 05-04-2023 Hemoglobin (Bld) [Mass/Vol] 12.1 g/dL 12.0-15.0 [facility] Blood lymphocytes/100 leukoc ytesOrdered By: Dr. Dyer on 05-04-2023 Lymphocytes/100 WBC (Bld) 35.6 % 19-41 [facility] Blood monocytes/100 leukocyt esOrdered By: Dr. Dyer on 05-04-2023 Monocytes/100 WBC (Bld) 9.4 % 0-10 [facility] Blood platelet mean volumeOr dered By: Dr. Dyer on 05-04-2023 Platelet mean volume (Bld) [Entitic vol] 9.4 fL 6.2-12.0 [facility] Determination of erythrocyte mean corpuscular volume (MCV)Ordered By: Dr. Dyer on 05-04-2023 MCV (RBC) [Entitic vol] 98.4 fL 81-99 [facility] Hematocrit Auto (Bld) [Volum e fraction]Ordered By: Dr. Dyer on 05-04-2023 Hematocrit (Bld) [Volume fraction] 36.6 % 37-47 [facility] Laboratory - Chemistry and C hemistry - challengeOrdered By: Dr. Dyer on 05-04-2023 CO2 [Moles/Vol] 27.0 mmol/L 21.0-32.0 [facility] Urea nitrogen/Creatinine [Mass ratio] 19.2 mg/mg 10-20 [facility] Laboratory - Hematology and Cell countsOrdered By: Dr. Dyer on 05-04-2023 Erythrocyte distribution width (RBC) [Entitic vol] 47.8 fL 35.1-43.9 [facility] Erythrocyte distribution width (RBC) [Ratio] 13.3 % 11.6-14.6 [facility] Immature granulocytes/100 WBC (Bld) 0.600 % 0.0-0.9 [facility] Comment on above: IG% - Immature Granu locytes (promyelocytes, myelocytes and metamyelocytes) > 1% indicates that a LEFT SHIFT is Present. MCH (RBC) [Entitic mass] 32.5 pg 27.0-32.0 [facility] Nucleated RBC/100 WBC (Bld) [Ratio] 0 % 0-5 [facility] MCHC Auto (RBC) [Mass/Vol]Or dered By: Dr. Dyer on 05-04-2023 MCHC (RBC) [Mass/Vol] 33.1 g/dL 32-36 [facility] No Panel InformationOrdered By: Dr. Dyer on 05-04-2023 Estimated Creatinine Clearance Calc 83.15 ml/min [facility] Estimated GFR (MDRD) Amer 110 mL/min >60 [facility] Comment on above: GFR Calc Estimated GFR (MDRD) Non-Af Amer 91 mL/min >60 [facility] Comment on above: Non- GFR Calc Platelets bldOrdered By: Dr. Dyer on 05-04-2023 Platelets (Bld) [#/Vol] 274 10*3/uL 150-450 [facility] Serum or plasma calcium alphonso urement (mass/volume)Ordered By: Dr. Dyer on 05-04-2023 Calcium [Mass/Vol] 8.6 mg/dL 8.5-10.1 [facility] Serum or plasma creatinine m easurement (mass/volume)Ordered By: Dr. Dyer on 05-04-2023 Creatinine [Mass/Vol] 0.73 mg/dL 0.55-1.02 [facility] Comment on above: The validity of the calculated GFR & GFRAA in patients over 70 years has not been determined. Clinical correlation is essential. Serum or plasma urea nitroge n measurement (mass/volume)Ordered By: Dr. Dyer on 05-04-2023 Urea nitrogen [Mass/Vol] 14 mg/dL 7-18 [facility] Thin prep Papanicolaou smear with manual screeningOrdered By: Dr. Dyer on 05-04-2023 Thin prep Papanicolaou smear with manual screening 6 5-15 [facility] Laboratory - Microbiology an d Antimicrobial susceptibilityOrdered By: Dr. Jacobs on 04-15-2023 Bacteria identified Cx Nom (Bld) No growth in 5 days. [facility] Absolute lymphocyte countOrd ered By: Dr. Kiran on 04-11-2023 Lymphocytes Auto (Unsp spec) [#/Vol] 2.75 10*3/uL 0.83-4.51 [facility] Basophil percentageOrdered B y: Dr. Kiran on 04-11-2023 Basophils/100 WBC (Bld) 0.3 % 0-1 [facility] Chloride [Moles/Vol] 105 mmol/L 98-107 [facility] Eosinophils/100 WBC (Bld) 0.7 % 0-5 [facility] Glucose [Mass/Vol] 143 mg/dL 74-106 [facility] Comment on above: Fasting Glucose resu lt greater than or equal to 126 mg/dL suggests DIABETES MELLITUS per A.D.A. criteria. Neutrophils (Bld) [#/Vol] 7.8 10*3/uL 2.0-7.7 [facility] Neutrophils/100 WBC (Bld) 67.1 % 47-70 [facility] Potassium [Moles/Vol] 4.1 mmol/L 3.5-5.1 [facility] Sodium [Moles/Vol] 137 mmol/L 136-145 [facility] WBC (Bld) [#/Vol] 11.6 10*3/uL 4.4-11.0 [facility] Basophil percentageOrdered B y: Dr. Johnson on 04-11-2023 Lactate [Moles/Vol] 0.6 mmol/L 0.4-2.0 [facility] Blood erythrocytes count (nu mber/volume)Ordered By: Dr. Kiran on 04-11-2023 RBC (Bld) [#/Vol] 3.87 10*6/uL 4.2-5.4 [facility] Blood hemoglobin measurement (mass/volume)Ordered By: Dr. Kiran on 04-11-2023 Hemoglobin (Bld) [Mass/Vol] 12.6 g/dL 12.0-15.0 [facility] Blood lymphocytes/100 leukoc ytesOrdered By: Dr. Kiran on 04-11-2023 Lymphocytes/100 WBC (Bld) 23.8 % 19-41 [facility] Blood monocytes/100 leukocyt esOrdered By: Dr. Kiran on 04-11-2023 Monocytes/100 WBC (Bld) 7.8 % 0-10 [facility] Blood platelet mean volumeOr dered By: Dr. Kiran on 04-11-2023 Platelet mean volume (Bld) [Entitic vol] 9.7 fL 6.2-12.0 [facility] Determination of erythrocyte mean corpuscular volume (MCV)Ordered By: Dr. Kiran on 04-11-2023 MCV (RBC) [Entitic vol] 100.5 fL 81-99 [facility] Glucose Glucometer (BldC) [M ass/Vol]Ordered By: Dr. Johnson on 04-11-2023 Glucose [Mass/Vol] 95 mg/dL 74-106 [facility] Comment on above: MANAGEMENT OF PATIEN T CARE PER NURSING PROTOCOL Hematocrit Auto (Bld) [Volum e fraction]Ordered By: Dr. Kiran on 04-11-2023 Hematocrit (Bld) [Volume fraction] 38.9 % 37-47 [facility] Laboratory - Chemistry and C hemistry - challengeOrdered By: Dr. Kiran on 04-11-2023 CO2 [Moles/Vol] 24.0 mmol/L 21.0-32.0 [facility] Urea nitrogen/Creatinine [Mass ratio] 23.2 mg/mg 10-20 [facility] Laboratory - Hematology and Cell countsOrdered By: Dr. Kiran on 04-11-2023 Erythrocyte distribution width (RBC) [Entitic vol] 47.8 fL 35.1-43.9 [facility] Erythrocyte distribution width (RBC) [Ratio] 13.1 % 11.6-14.6 [facility] Immature granulocytes/100 WBC (Bld) 0.300 % 0.0-0.9 [facility] Comment on above: IG% - Immature Granu locytes (promyelocytes, myelocytes and metamyelocytes) > 1% indicates that a LEFT SHIFT is Present. MCH (RBC) [Entitic mass] 32.6 pg 27.0-32.0 [facility] Nucleated RBC/100 WBC (Bld) [Ratio] 0 % 0-5 [facility] MCHC Auto (RBC) [Mass/Vol]Or dered By: Dr. Kiran on 04-11-2023 MCHC (RBC) [Mass/Vol] 32.4 g/dL 32-36 [facility] No Panel InformationOrdered By: Dr. Kiran on 04-11-2023 Estimated Creatinine Clearance Calc 74.03 ml/min [facility] Estimated GFR (MDRD) Amer 97 mL/min >60 [facility] Comment on above: GFR Calc Estimated GFR (MDRD) Non-Af Amer 80 mL/min >60 [facility] Comment on above: Non- GFR Calc Platelets bldOrdered By: Dr. Kiran on 04-11-2023 Platelets (Bld) [#/Vol] 246 10*3/uL 150-450 [facility] Serum or plasma calcium alphonso urement (mass/volume)Ordered By: Dr. Kiran on 04-11-2023 Calcium [Mass/Vol] 8.8 mg/dL 8.5-10.1 [facility] Serum or plasma creatinine m easurement (mass/volume)Ordered By: Dr. Kiran on 04-11-2023 Creatinine [Mass/Vol] 0.82 mg/dL 0.55-1.02 [facility] Comment on above: The validity of the calculated GFR & GFRAA in patients over 70 years has not been determined. Clinical correlation is essential. Serum or plasma urea nitroge n measurement (mass/volume)Ordered By: Dr. Kiran on 04-11-2023 Urea nitrogen [Mass/Vol] 19 mg/dL 7-18 [facility] Thin prep Papanicolaou smear with manual screeningOrdered By: Dr. Kiran on 04-11-2023 Thin prep Papanicolaou smear with manual screening 8 5-15 [facility] Basophil percentageOrdered B y: Dr. Jacobs on 04-10-2023 Chloride [Moles/Vol] 110 mmol/L 98-107 [facility] Glucose [Mass/Vol] 160 mg/dL 74-106 [facility] Comment on above: Fasting Glucose resu lt greater than or equal to 126 mg/dL suggests DIABETES MELLITUS per A.D.A. criteria. Lactate [Moles/Vol] 4.2 mmol/L 0.4-2.0 [facility] Comment on above: Critical Result(s) C alled at: 02:41:04 04/10/2023 by: Campos [employer]. Results read back by same. Potassium [Moles/Vol] 4.8 mmol/L 3.5-5.1 [facility] Sodium [Moles/Vol] 140 mmol/L 136-145 [facility] Basophil percentage 0 SEEN /hpf 0-5 [facility] Bilirubin Test strip Ql (U)O rdered By: Dr. Jacobs on 04-10-2023 Bilirubin Ql (U) Negative Negative [facility] HCO3 (BldA) [Moles/Vol]Order ed By: Dr. Jacobs on 04-10-2023 HCO3 (Bld) [Moles/Vol] 20 mmol/L 22-26 [facility] Ketones Test strip Ql (U)Ord ered By: Dr. Jacobs on 04-10-2023 Ketones Ql (U) Negative Negative [facility] Laboratory - Chemistry and C hemistry - challengeOrdered By: Dr. Jacobs on 04-10-2023 CO2 [Moles/Vol] 19.0 mmol/L 21.0-32.0 [facility] Urea nitrogen/Creatinine [Mass ratio] 15.8 mg/mg 10-20 [facility] CO2 [Moles/Vol] 21 mmol/L 23-33 [facility] Laboratory - Microbiology an d Antimicrobial susceptibilityOrdered By: David Jacobs on 04-10-2023 Bacteria identified Cx Nom (Bld) No growth in 5 days. [facility] Mucus LM Ql (Urine sed)Order ed By: Dr. Jacobs on 04-10-2023 Mucus Ql (Urine sed) 0 SEEN /hpf [facility] Nitrite Test strip Ql (U)Ord ered By: Dr. Jacobs on 04-10-2023 Nitrite Ql (U) Negative Negative [facility] No Panel InformationOrdered By: Dr. Jacobs on 04-10-2023 Estimated Creatinine Clearance Calc 60.10 ml/min [facility] Estimated GFR (MDRD) Amer 76 mL/min >60 [facility] Comment on above: GFR Calc Estimated GFR (MDRD) Non-Af Amer 63 mL/min >60 [facility] Comment on above: Non- GFR Calc Troponin I High Sensitivity < 3 pg/mL 3.0-54.0 [facility] Comment on above: Please Note: [place] t Units and Gender Specific Reference Ranges. For more information see Policy Stat Procedure [place] High Sensitivity Troponin (TNIH) and attachments. Bed Mix Venous Bld PCO2 at Pat Temp 40.5 mmHg 41-51 [facility] Blood Gas Specimen Type GELACIO [facility] Oxygen Delivery Device Room [facility] Venous Blood Base Excess -7 mmol/L -1.0-3.5 [facility] No Panel InformationOrdered By: Dr. Kiran on 04-10-2023 Troponin I High Sensitivity < 3 pg/mL 3.0-54.0 [facility] Comment on above: Please Note: [place] t Units and Gender Specific Reference Ranges. For more information see Policy Stat Procedure [place] High Sensitivity Troponin (TNIH) and attachments. PO2 venousOrdered By: Dr. Jose wood on 04-10-2023 Oxygen (BldV) [Partial pressure] 54 mm[Hg] 25-40 [facility] Protein Test strip Ql (U)Ord ered By: Dr. Jacobs on 04-10-2023 Protein Ql (U) Negative Negative [facility] Serum or plasma acetone alphonso urement (mass/volume)Ordered By: Dr. Jacobs on 04-10-2023 Acetone [Mass/Vol] Negative NEG [facility] Serum or plasma calcium alphonso urement (mass/volume)Ordered By: Dr. Jacobs on 04-10-2023 Calcium [Mass/Vol] 7.3 mg/dL 8.5-10.1 [facility] Serum or plasma creatinine m easurement (mass/volume)Ordered By: Dr. Jacobs on 04-10-2023 Creatinine [Mass/Vol] 1.01 mg/dL 0.55-1.02 [facility] Comment on above: The validity of the calculated GFR & GFRAA in patients over 70 years has not been determined. Clinical correlation is essential. Serum or plasma urea nitroge n measurement (mass/volume)Ordered By: Dr. Jacobs on 04-10-2023 Urea nitrogen [Mass/Vol] 16 mg/dL 7-18 [facility] Squamous epithelial cells de tection in urine sediment by light microscopyOrdered By: Dr. Jacobs on 04-10-2023 Epithelial cells.squamous LM Ql (Urine sed) 0 SEEN /hpf 5-10 [facility] Thin prep Papanicolaou smear with manual screeningOrdered By: Dr. Jacobs on 04-10-2023 Thin prep Papanicolaou smear with manual screening 11 -15 [facility] Urine blood detectionOrdered By: Dr. Jacobs on 04-10-2023 RBC Ql (U) Negative Negative [facility] RBC Ql (U) 0 SEEN /hpf 0-5 [facility] Urine clarityOrdered By: Dr. Jacobs on 04-10-2023 Clarity (U) Clear Clear [facility] Urine color determinationOrd ered By: Dr. Jacobs on 04-10-2023 Color (U) Yellow Yellow [facility] Urine glucose detectionOrder ed By: Dr. Jacobs on 04-10-2023 Glucose Ql (U) 1000 mg/dl Normal [facility] Urine leukocyte esterase det ection by dipstickOrdered By: Dr. Jacobs on 04-10-2023 Leukocyte esterase Test strip Ql (U) Negative Negative [facility] Urine pHOrdered By: Dr. Caren garza on 04-10-2023 pH (U) 6.5 [pH] 5.0 - 8.0 [facility] Urine sediment bacteria coun t by microscopy (number/high power field)Ordered By: Dr. Jacobs on 04-10-2023 Bacteria LM.HPF (Urine sed) [#/Area] 0 /[HPF] None Seen [facility] Urine specific gravity measu rementOrdered By: Dr. Jacobs on 04-10-2023 Specific gravity (U) [Rel density] 1.010 1.002-1.030 [facility] Urobilinogen Auto test strip Ql (U)Ordered By: Dr. Jacobs on 04-10-2023 Urobilinogen Ql (U) Normal mg/dl Normal [facility] Vital signsOrdered By: Dr. Del mackay on 04-10-2023 Oxygen saturation in Blood 84 % 50-70 [facility] pH measurementOrdered By: Dr Jael Jacobs on 04-10-2023 pH (Unsp spec) 7.29 [pH] 7.32-7.42 [facility] Absolute lymphocyte countOrd ered By: Dr. Jacobs on 04-09-2023 Lymphocytes Auto (Unsp spec) [#/Vol] 0.91 10*3/uL 0.83-4.51 [facility] Basophil percentageOrdered B y: Dr. Jacobs on 04-09-2023 Basophils/100 WBC (Bld) 0.2 % 0-1 [facility] Eosinophils/100 WBC (Bld) 0.4 % 0-5 [facility] Neutrophils (Bld) [#/Vol] 6.8 10*3/uL 2.0-7.7 [facility] Neutrophils/100 WBC (Bld) 85.1 % 47-70 [facility] WBC (Bld) [#/Vol] 8.0 10*3/uL 4.4-11.0 [facility] Blood erythrocytes count (nu mber/volume)Ordered By: Dr. Jacobs on 04-09-2023 RBC (Bld) [#/Vol] 3.87 10*6/uL 4.2-5.4 [facility] Blood hemoglobin measurement (mass/volume)Ordered By: Dr. Jacobs on 04-09-2023 Hemoglobin (Bld) [Mass/Vol] 12.5 g/dL 12.0-15.0 [facility] Blood lymphocytes/100 leukoc ytesOrdered By: Dr. Jacobs on 04-09-2023 Lymphocytes/100 WBC (Bld) 11.3 % 19-41 [facility] Blood monocytes/100 leukocyt esOrdered By: Dr. Jacobs on 04-09-2023 Monocytes/100 WBC (Bld) 1.6 % 0-10 [facility] Blood platelet mean volumeOr dered By: Dr. Jacobs on 04-09-2023 Platelet mean volume (Bld) [Entitic vol] 10.0 fL 6.2-12.0 [facility] Determination of erythrocyte mean corpuscular volume (MCV)Ordered By: Dr. Jacobs on 04-09-2023 MCV (RBC) [Entitic vol] 99.5 fL 81-99 [facility] Hematocrit Auto (Bld) [Volum e fraction]Ordered By: Dr. Jacobs on 04-09-2023 Hematocrit (Bld) [Volume fraction] 38.5 % 37-47 [facility] Laboratory - Hematology and Cell countsOrdered By: Dr. Jacobs on 04-09-2023 Erythrocyte distribution width (RBC) [Entitic vol] 47.4 fL 35.1-43.9 [facility] Erythrocyte distribution width (RBC) [Ratio] 13.0 % 11.6-14.6 [facility] Immature granulocytes/100 WBC (Bld) 1.400 % 0.0-0.9 [facility] Comment on above: IG% - Immature Granu locytes (promyelocytes, myelocytes and metamyelocytes) > 1% indicates that a LEFT SHIFT is Present. MCH (RBC) [Entitic mass] 32.3 pg 27.0-32.0 [facility] Nucleated RBC/100 WBC (Bld) [Ratio] 0 % 0-5 [facility] MCHC Auto (RBC) [Mass/Vol]Or dered By: Dr. Jacobs on 04-09-2023 MCHC (RBC) [Mass/Vol] 32.5 g/dL 32-36 [facility] No Panel InformationOrdered By: Dr. Jacobs on 04-09-2023 D-Dimer Quantitative (PE/DVT) < 0.27 FEU/ug/m 0.27-0.49 [facility] Comment on above: NORMAL D-Dimer level (<0.50) indicates no DVT or PE. Platelets bldOrdered By: Dr. Jacobs on 04-09-2023 Platelets (Bld) [#/Vol] 298 10*3/uL 150-450 [facility] Absolute lymphocyte countOrd ered By: Dr. Gaviria on 03-22-2023 Lymphocytes Auto (Unsp spec) [#/Vol] 2.49 10*3/uL 0.83-4.51 [facility] Amorphous sediment detection in urine sediment by light microscopyOrdered By: Dr. Gaviria on 03-22-2023 Amorphous sediment LM Ql (Urine sed) 1+ URATE [facility] Basophil percentageOrdered B y: Dr. Gaviria on 03-22-2023 Basophil percentage 5-10 SEEN /hpf 0-5 [facility] Basophils/100 WBC (Bld) 0.5 % 0-1 [facility] Bilirubin [Mass/Vol] 0.30 mg/dL 0.20-1.00 [facility] Comment on above: For patients on eltr ombopag therapy, use of Dimension [place] TBIL is not recommended. Chloride [Moles/Vol] 105 mmol/L 98-107 [facility] Eosinophils/100 WBC (Bld) 2.0 % 0-5 [facility] Glucose [Mass/Vol] 146 mg/dL 74-106 [facility] Comment on above: Fasting Glucose resu lt greater than or equal to 126 mg/dL suggests DIABETES MELLITUS per A.D.A. criteria. Lactate [Moles/Vol] 1.4 mmol/L 0.4-2.0 [facility] Neutrophils (Bld) [#/Vol] 7.1 10*3/uL 2.0-7.7 [facility] Neutrophils/100 WBC (Bld) 64.4 % 47-70 [facility] Potassium [Moles/Vol] 4.4 mmol/L 3.5-5.1 [facility] Protein [Mass/Vol] 7.7 g/dL 6.4-8.2 [facility] Sodium [Moles/Vol] 133 mmol/L 136-145 [facility] WBC (Bld) [#/Vol] 11.0 10*3/uL 4.4-11.0 [facility] Bilirubin Test strip Ql (U)O rdered By: Dr. Gaviria on 03-22-2023 Bilirubin Ql (U) Negative Negative [facility] Blood erythrocytes count (nu mber/volume)Ordered By: Dr. Gaviria on 03-22-2023 RBC (Bld) [#/Vol] 4.25 10*6/uL 4.2-5.4 [facility] Blood hemoglobin measurement (mass/volume)Ordered By: Dr. Gaviria on 03-22-2023 Hemoglobin (Bld) [Mass/Vol] 13.6 g/dL 12.0-15.0 [facility] Blood lymphocytes/100 leukoc ytesOrdered By: Dr. Gaviria on 03-22-2023 Lymphocytes/100 WBC (Bld) 22.7 % 19-41 [facility] Blood monocytes/100 leukocyt esOrdered By: Dr. Gaviria on 03-22-2023 Monocytes/100 WBC (Bld) 9.9 % 0-10 [facility] Blood platelet mean volumeOr dered By: Dr. Gaviria on 03-22-2023 Platelet mean volume (Bld) [Entitic vol] 9.7 fL 6.2-12.0 [facility] Determination of erythrocyte mean corpuscular volume (MCV)Ordered By: Dr. Gaviria on 03-22-2023 MCV (RBC) [Entitic vol] 97.6 fL 81-99 [facility] Hematocrit Auto (Bld) [Volum e fraction]Ordered By: Dr. Gaviria on 03-22-2023 Hematocrit (Bld) [Volume fraction] 41.5 % 37-47 [facility] Ketones Test strip Ql (U)Ord ered By: Dr. Gaviria on 03-22-2023 Ketones Ql (U) Negative Negative [facility] Laboratory - Chemistry and C hemistry - challengeOrdered By: Dr. Gaviria on 03-22-2023 ALP [Catalytic activity/Vol] 71 U/L 45-117 [facility] ALT [Catalytic activity/Vol] 33 U/L 13-56 [facility] CO2 [Moles/Vol] 24.0 mmol/L 21.0-32.0 [facility] Globulin (S) [Mass/Vol] 3.7 g/dL 2.2-4.2 [facility] Urea nitrogen/Creatinine [Mass ratio] 10.8 mg/mg 10-20 [facility] Laboratory - Hematology and Cell countsOrdered By: Dr. Gaviria on 03-22-2023 Erythrocyte distribution width (RBC) [Entitic vol] 46.9 fL 35.1-43.9 [facility] Erythrocyte distribution width (RBC) [Ratio] 13.1 % 11.6-14.6 [facility] Immature granulocytes/100 WBC (Bld) 0.500 % 0.0-0.9 [facility] Comment on above: IG% - Immature Granu locytes (promyelocytes, myelocytes and metamyelocytes) > 1% indicates that a LEFT SHIFT is Present. MCH (RBC) [Entitic mass] 32.0 pg 27.0-32.0 [facility] Nucleated RBC/100 WBC (Bld) [Ratio] 0 % 0-5 [facility] MCHC Auto (RBC) [Mass/Vol]Or dered By: Dr. Gaviria on 03-22-2023 MCHC (RBC) [Mass/Vol] 32.8 g/dL 32-36 [facility] Mucus LM Ql (Urine sed)Order ed By: Dr. Gaviria on 03-22-2023 Mucus Ql (Urine sed) 0 SEEN /hpf [facility] Nitrite Test strip Ql (U)Ord ered By: Dr. Gaviria on 03-22-2023 Nitrite Ql (U) Negative Negative [facility] No Panel InformationOrdered By: Dr. Gaviria on 03-22-2023 Estimated Creatinine Clearance Calc 36.74 ml/min [facility] Estimated GFR (MDRD) Amer 43 mL/min >60 [facility] Comment on above: GFR Calc Estimated GFR (MDRD) Non-Af Amer 35 mL/min >60 [facility] Comment on above: Non- GFR Calc Platelets bldOrdered By: Dr. Gaviria on 03-22-2023 Platelets (Bld) [#/Vol] 316 10*3/uL 150-450 [facility] Protein Test strip Ql (U)Ord ered By: Dr. Gaviria on 03-22-2023 Protein Ql (U) Negative Negative [facility] Serum or plasma albumin alphonso urement (mass/volume)Ordered By: Dr. Gaviria on 03-22-2023 Albumin [Mass/Vol] 4.0 g/dL 3.2-5.0 [facility] Serum or plasma albumin/glob ulin mass ratioOrdered By: Dr. Gaviria on 03-22-2023 Albumin/Globulin [Mass ratio] 1.1 {ratio} 0.9-2.4 [facility] Serum or plasma calcium alphonso urement (mass/volume)Ordered By: Dr. Gaviria on 03-22-2023 Calcium [Mass/Vol] 8.9 mg/dL 8.5-10.1 [facility] Serum or plasma creatinine m easurement (mass/volume)Ordered By: Dr. Gaviria on 03-22-2023 Creatinine [Mass/Vol] 1.67 mg/dL 0.55-1.02 [facility] Comment on above: The validity of the calculated GFR & GFRAA in patients over 70 years has not been determined. Clinical correlation is essential. Serum or plasma urea nitroge n measurement (mass/volume)Ordered By: Dr. Gaviria on 03-22-2023 Urea nitrogen [Mass/Vol] 18 mg/dL 7-18 [facility] Squamous epithelial cells de tection in urine sediment by light microscopyOrdered By: Dr. Gaviria on 03-22-2023 Epithelial cells.squamous LM Ql (Urine sed) 0-5 SEEN /hpf 5-10 [facility] Thin prep Papanicolaou smear with manual screeningOrdered By: Dr. Gaviria on 03-22-2023 Thin prep Papanicolaou smear with manual screening 20 U/L 15-37 [facility] Thin prep Papanicolaou smear with manual screening 4 5-15 [facility] Urine blood detectionOrdered By: Dr. Gaviria on 03-22-2023 RBC Ql (U) Negative Negative [facility] RBC Ql (U) 0 SEEN /hpf 0-5 [facility] Urine clarityOrdered By: Dr. Gaviria on 03-22-2023 Clarity (U) Sl. Cloudy Clear [facility] Urine color determinationOrd ered By: Dr. Gaviria on 03-22-2023 Color (U) Yellow Yellow [facility] Urine glucose detectionOrder ed By: Dr. Gaviria on 03-22-2023 Glucose Ql (U) 1000 mg/dl Normal [facility] Urine leukocyte esterase det ection by dipstickOrdered By: Dr. Gaviria on 03-22-2023 Leukocyte esterase Test strip Ql (U) 100 /ul Negative [facility] Urine pHOrdered By: Dr. Shae ruelas on 03-22-2023 pH (U) 6.5 [pH] 5.0 - 8.0 [facility] Urine sediment bacteria coun t by microscopy (number/high power field)Ordered By: Dr. Gaviria on 03-22-2023 Bacteria LM.HPF (Urine sed) [#/Area] 0 /[HPF] None Seen [facility] Urine specific gravity measu rementOrdered By: Dr. Gaviria on 03-22-2023 Specific gravity (U) [Rel density] 1.005 1.002-1.030 [facility] Urobilinogen Auto test strip Ql (U)Ordered By: Dr. Gaviria on 03-22-2023 Urobilinogen Ql (U) Normal mg/dl Normal [facility] Laboratory - Microbiology an d Antimicrobial susceptibilityon 02-12-2023 SARS-CoV-2 (COVID-19) RNA ALLEY+probe Ql (Unsp spec) Not detected [facility] No Panel Informationon 02-12 Influenza Types A,B Rapid (Clinic) Not detected [facility] Absolute lymphocyte countOrd ered By: Dr. Jacobs on 01-21-2023 Lymphocytes Auto (Unsp spec) [#/Vol] 2.33 10*3/uL 0.83-4.51 [facility] Basophil percentageOrdered B y: Dr. Jacobs on 01-21-2023 Basophils/100 WBC (Bld) 0.5 % 0-1 [facility] Chloride [Moles/Vol] 103 mmol/L 98-107 [facility] Eosinophils/100 WBC (Bld) 2.6 % 0-5 [facility] Glucose [Mass/Vol] 262 mg/dL 74-106 [facility] Comment on above: Glucose result great er than or equal to 200 mg/dLsuggests DIABETES MELLITUS per A.D.A. criteria. Neutrophils (Bld) [#/Vol] 4.7 10*3/uL 2.0-7.7 [facility] Neutrophils/100 WBC (Bld) 59.7 % 47-70 [facility] Potassium [Moles/Vol] 3.6 mmol/L 3.5-5.1 [facility] Sodium [Moles/Vol] 138 mmol/L 136-145 [facility] WBC (Bld) [#/Vol] 7.9 10*3/uL 4.4-11.0 [facility] Blood erythrocytes count (nu mber/volume)Ordered By: Dr. Jacobs on 01-21-2023 RBC (Bld) [#/Vol] 4.32 10*6/uL 4.2-5.4 [facility] Blood hemoglobin measurement (mass/volume)Ordered By: Dr. Jacobs on 01-21-2023 Hemoglobin (Bld) [Mass/Vol] 13.8 g/dL 12.0-15.0 [facility] Blood lymphocytes/100 leukoc ytesOrdered By: Dr. Jacobs on 01-21-2023 Lymphocytes/100 WBC (Bld) 29.3 % 19-41 [facility] Blood monocytes/100 leukocyt esOrdered By: Dr. Jacobs on 01-21-2023 Monocytes/100 WBC (Bld) 7.6 % 0-10 [facility] Blood platelet mean volumeOr dered By: Dr. Jacobs on 01-21-2023 Platelet mean volume (Bld) [Entitic vol] 9.8 fL 6.2-12.0 [facility] Determination of erythrocyte mean corpuscular volume (MCV)Ordered By: Dr. Jacobs on 01-21-2023 MCV (RBC) [Entitic vol] 95.8 fL 81-99 [facility] Hematocrit Auto (Bld) [Volum e fraction]Ordered By: Dr. Jacobs on 01-21-2023 Hematocrit (Bld) [Volume fraction] 41.4 % 37-47 [facility] Laboratory - Chemistry and C hemistry - challengeOrdered By: Dr. Jacobs on 01-21-2023 CO2 [Moles/Vol] 27.0 mmol/L 21.0-32.0 [facility] Urea nitrogen/Creatinine [Mass ratio] 11.8 mg/mg 10-20 [facility] Laboratory - Hematology and Cell countsOrdered By: Dr. Jacobs on 01-21-2023 Erythrocyte distribution width (RBC) [Entitic vol] 44.4 fL 35.1-43.9 [facility] Erythrocyte distribution width (RBC) [Ratio] 12.7 % 11.6-14.6 [facility] Immature granulocytes/100 WBC (Bld) 0.300 % 0.0-0.9 [facility] Comment on above: IG% - Immature Granu locytes (promyelocytes, myelocytes and metamyelocytes) > 1% indicates that a LEFT SHIFT is Present. MCH (RBC) [Entitic mass] 31.9 pg 27.0-32.0 [facility] Nucleated RBC/100 WBC (Bld) [Ratio] 0 % 0-5 [facility] MCHC Auto (RBC) [Mass/Vol]Or dered By: Dr. Jacobs on 01-21-2023 MCHC (RBC) [Mass/Vol] 33.3 g/dL 32-36 [facility] No Panel InformationOrdered By: Dr. Jacobs on 01-21-2023 Troponin I High Sensitivity < 3 pg/mL 3.0-54.0 [facility] Comment on above: Please Note: New [place] t Units and Gender Specific Reference Ranges. For more information see Policy Stat Procedure [place] High Sensitivity Troponin (TNIH) and attachments. D-Dimer Quantitative (PE/DVT) < 0.27 FEU/ug/m 0.27-0.49 [facility] Comment on above: NORMAL D-Dimer level (<0.50) indicates no DVT or PE. Estimated Creatinine Clearance Calc 65.97 ml/min [facility] Estimated GFR (MDRD) Amer 83 mL/min >60 [facility] Comment on above: GFR Calc Estimated GFR (MDRD) Non-Af Amer 69 mL/min >60 [facility] Comment on above: Non- GFR Calc Platelets bldOrdered By: Dr. Jacobs on 01-21-2023 Platelets (Bld) [#/Vol] 314 10*3/uL 150-450 [facility] Serum or plasma calcium alphonso urement (mass/volume)Ordered By: Dr. Jacobs on 01-21-2023 Calcium [Mass/Vol] 8.9 mg/dL 8.5-10.1 [facility] Serum or plasma creatinine m easurement (mass/volume)Ordered By: Dr. Jacobs on 01-21-2023 Creatinine [Mass/Vol] 0.93 mg/dL 0.55-1.02 [facility] Comment on above: The validity of the calculated GFR & GFRAA in patients over 70 years has not been determined. Clinical correlation is essential. Serum or plasma urea nitroge n measurement (mass/volume)Ordered By: Dr. Jacobs on 01-21-2023 Urea nitrogen [Mass/Vol] 11 mg/dL 7-18 [facility] Thin prep Papanicolaou smear with manual screeningOrdered By: Dr. Jacobs on 01-21-2023 Thin prep Papanicolaou smear with manual screening 8 5-15 [facility] Absolute lymphocyte countOrd ered By: Dr. Kay on 11-19-2022 Lymphocytes Auto (Unsp spec) [#/Vol] 2.69 10*3/uL 0.83-4.51 [facility] Basophil percentageOrdered B y: Dr. Kay on 11-19-2022 Basophils/100 WBC (Bld) 0.4 % 0-1 [facility] Chloride [Moles/Vol] 104 mmol/L 98-107 [facility] Eosinophils/100 WBC (Bld) 2.4 % 0-5 [facility] Glucose [Mass/Vol] 194 mg/dL 74-106 [facility] Comment on above: Fasting Glucose resu lt greater than or equal to 126 mg/dL suggests DIABETES MELLITUS per A.D.A. criteria. Neutrophils (Bld) [#/Vol] 1.7 10*3/uL 2.0-7.7 [facility] Neutrophils/100 WBC (Bld) 33.7 % 47-70 [facility] Potassium [Moles/Vol] 3.4 mmol/L 3.5-5.1 [facility] Sodium [Moles/Vol] 138 mmol/L 136-145 [facility] WBC (Bld) [#/Vol] 5.1 10*3/uL 4.4-11.0 [facility] Basophil percentageOrdered B y: Dr. Piña on 11-19-2022 Cholesterol [Mass/Vol] 144 mg/dL <200 [facility] Comment on above: <200 mg/dL Desirable 200-240 mg/dL Borderline >240 mg/dL High Risk Triglyceride [Mass/Vol] 227 mg/dL <199 [facility] Comment on above: The drugs N-Acetylcy steine and Metamizole may falsely depress this assay.Serum Triglycerides Reference Interval Normal <150 mg/dL Borderline high 150 - 199 mg/dL High 200 - 499 mg/dL Very High > or = 500 mg/dL Beta hCG serum qualOrdered B y: Dr. Piña on 11-19-2022 Beta HCG ( test) Ql Negative [facility] Blood erythrocytes count (nu mber/volume)Ordered By: Dr. Kay on 11-19-2022 RBC (Bld) [#/Vol] 3.74 10*6/uL 4.2-5.4 [facility] Blood hemoglobin measurement (mass/volume)Ordered By: Dr. Kay on 11-19-2022 Hemoglobin (Bld) [Mass/Vol] 12.0 g/dL 12.0-15.0 [facility] Blood lymphocytes/100 leukoc ytesOrdered By: Dr. Kay on 11-19-2022 Lymphocytes/100 WBC (Bld) 52.7 % 19-41 [facility] Blood monocytes/100 leukocyt esOrdered By: Dr. Kay on 11-19-2022 Monocytes/100 WBC (Bld) 10.6 % 0-10 [facility] Blood platelet mean volumeOr dered By: Dr. Kay on 11-19-2022 Platelet mean volume (Bld) [Entitic vol] 9.5 fL 6.2-12.0 [facility] Determination of erythrocyte mean corpuscular volume (MCV)Ordered By: Dr. Kay on 11-19-2022 MCV (RBC) [Entitic vol] 92.2 fL 81-99 [facility] Glucose Glucometer (dC) [M ass/Vol]Ordered By: Dr. Kay on 11-19-2022 Glucose [Mass/Vol] 295 mg/dL 74-106 [facility] Comment on above: MANAGEMENT OF PATIEN T CARE PER NURSING PROTOCOL Hematocrit Auto (Bld) [Volum e fraction]Ordered By: Dr. Kay on 11-19-2022 Hematocrit (Bld) [Volume fraction] 34.5 % 37-47 [facility] Laboratory - Chemistry and C hemistry - challengeOrdered By: Dr. Kay on 11-19-2022 CO2 [Moles/Vol] 28.0 mmol/L 21.0-32.0 [facility] Urea nitrogen/Creatinine [Mass ratio] 14.3 mg/mg 10-20 [facility] Laboratory - CoagulationOrde red By: Dr. Tavares on 11-19-2022 aPTT Coag (Bld) [Time] 63.5 s 24.1-36.2 [facility] Laboratory - Hematology and Cell countsOrdered By: Dr. Kay on 11-19-2022 Erythrocyte distribution width (RBC) [Entitic vol] 41.3 fL 35.1-43.9 [facility] Erythrocyte distribution width (RBC) [Ratio] 12.2 % 11.6-14.6 [facility] Immature granulocytes/100 WBC (Bld) 0.200 % 0.0-0.9 [facility] Comment on above: IG% - Immature Granu locytes (promyelocytes, myelocytes and metamyelocytes) > 1% indicates that a LEFT SHIFT is Present. MCH (RBC) [Entitic mass] 32.1 pg 27.0-32.0 [facility] Nucleated RBC/100 WBC (Bld) [Ratio] 0 % 0-5 [facility] MCHC Auto (RBC) [Mass/Vol]Or dered By: Dr. Kay on 11-19-2022 MCHC (RBC) [Mass/Vol] 34.8 g/dL 32-36 [facility] No Panel InformationOrdered By: Dr. Kay on 11-19-2022 Estimated Creatinine Clearance Calc 97.38 ml/min [facility] Estimated GFR (MDRD) Amer 131 mL/min >60 [facility] Comment on above: GFR Calc Estimated GFR (MDRD) Non-Af Amer 108 mL/min >60 [facility] Comment on above: Non- GFR Calc No Panel InformationOrdered By: Dr. Piña on 11-19-2022 Troponin I High Sensitivity 307 pg/mL 3.0-54.0 [facility] Comment on above: Critical Result(s) C alled at: 04:53:08 11/19/2022 by: Kannan BRAUN RN ([facility]) Results read back by same. Please Note: New Test Units and Gender Specific Reference Ranges. For more information see Policy Stat Procedure [place] High Sensitivity Troponin (TNIH) and attachments. Platelets bldOrdered By: Dr. Kay on 11-19-2022 Platelets (Bld) [#/Vol] 194 10*3/uL 150-450 [facility] Serum or plasma calcium alphonso urement (mass/volume)Ordered By: Dr. Kay on 11-19-2022 Calcium [Mass/Vol] 7.7 mg/dL 8.5-10.1 [facility] Serum or plasma cholesterol in HDL measurement (mass/volume)Ordered By: Dr. Piña on 11-19-2022 Cholesterol in HDL [Mass/Vol] 42 mg/dL >40 [facility] Comment on above: The drugs N-Acetylcy steine and Metamizole may falsely depress this assay. Reference Range HDL <40 mg/dL Low HDL Cholesterol HDL >or= 60 mg/dL High HDL Cholesterol Serum or plasma cholesterol in VLDL measurement (mass/volume)Ordered By: Dr. Piña on 11-19-2022 Cholesterol in VLDL [Mass/Vol] 45 mg/dL 5-40 [facility] Serum or plasma creatinine m easurement (mass/volume)Ordered By: Dr. Kay on 11-19-2022 Creatinine [Mass/Vol] 0.63 mg/dL 0.55-1.02 [facility] Comment on above: The validity of the calculated GFR & GFRAA in patients over 70 years has not been determined. Clinical correlation is essential. Serum or plasma low density lipoprotein (LDL) cholesterol measurement (mass/volume)Ordered By: Dr. Piña on 11-19-2022 Cholesterol in LDL [Mass/Vol] 57 mg/dL 0-130 [facility] Serum or plasma urea nitroge n measurement (mass/volume)Ordered By: Dr. Kay on 11-19-2022 Urea nitrogen [Mass/Vol] 9 mg/dL 7-18 [facility] Thin prep Papanicolaou smear with manual screeningOrdered By: Dr. Kay on 11-19-2022 Thin prep Papanicolaou smear with manual screening 6 5-15 [facility] Basophil percentageOrdered B y: Dr. Piña on 11-18-2022 Bilirubin [Mass/Vol] 0.50 mg/dL 0.20-1.00 [facility] Comment on above: For patients on eltr ombopag therapy, use of Dimension [place] TBIL is not recommended. Protein [Mass/Vol] 7.4 g/dL 6.4-8.2 [facility] Direct bilirubinOrdered By: Dr. Piña on 11-18-2022 Bilirubin.direct [Mass/Vol] 0.13 mg/dL 0.00-0.30 [facility] INR in Blood by Coagulation assayOrdered By: Dr. Tavares on 11-18-2022 INR Coag (Bld) [Relative time] 1.0 {INR} [facility] Laboratory - Chemistry and C hemistry - challengeOrdered By: Dr. Piña on 11-18-2022 ALP [Catalytic activity/Vol] 82 U/L 45-117 [facility] ALT [Catalytic activity/Vol] 33 U/L 13-56 [facility] Globulin (S) [Mass/Vol] 4.0 g/dL 2.2-4.2 [facility] Laboratory - CoagulationOrde red By: Dr. Tavares on 11-18-2022 PT Coag (PPP) [Time] 12.9 s 11.7-14.9 [facility] No Panel InformationOrdered By: Dr. Tavares on 11-18-2022 D-Dimer Quantitative (PE/DVT) 0.40 FEU/ug/m 0.27-0.49 [facility] Comment on above: NORMAL D-Dimer level (<0.50) indicates no DVT or PE. Serum or plasma albumin alphonso urement (mass/volume)Ordered By: Dr. Piña on 11-18-2022 Albumin [Mass/Vol] 3.4 g/dL 3.2-5.0 [facility] Thin prep Papanicolaou smear with manual screeningOrdered By: Dr. Piña on 11-18-2022 Thin prep Papanicolaou smear with manual screening 26 U/L 15-37 [facility] Absolute lymphocyte counton 09-05-2022 Lymphocytes Auto (Unsp spec) [#/Vol] 3.03 10*3/uL 0.83-4.51 [facility] Work Phone: Basophil percentageon 2021 Basophils/100 WBC (Bld) 0.5 % 0-1 [facility] Work Phone: Chloride [Moles/Vol] 105 mmol/L 98-107 [facility] Work Phone: Eosinophils/100 WBC (Bld) 3.3 % 0-5 [facility] Work Phone: Glucose [Mass/Vol] 246 mg/dL 74-106 [facility] Work Phone: Comment on above: Glucose result great er than or equal to 200 mg/dLsuggests DIABETES MELLITUS per A.D.A. criteria. Neutrophils (Bld) [#/Vol] 3.8 10*3/uL 2.0-7.7 [facility] Work Phone: [phone] Neutrophils/100 WBC (Bld) 48.3 % 47-70 [facility] Work Phone: Potassium [Moles/Vol] 3.6 mmol/L 3.5-5.1 [facility] Work Phone: Sodium [Moles/Vol] 142 mmol/L 136-145 [facility] Work Phone: WBC (Bld) [#/Vol] 7.8 10*3/uL 4.4-11.0 [facility] Work Phone: Blood erythrocytes count (nu mber/volume)on 09-05-2022 RBC (Bld) [#/Vol] 4.17 10*6/uL 4.2-5.4 [facility]: Blood hemoglobin measurement (mass/volume)on 09-05-2022 Hemoglobin (Bld) [Mass/Vol] 13.1 g/dL 12.0-15.0 [facility] Work Phone: Blood lymphocytes/100 leukoc yteson 09-05-2022 Lymphocytes/100 WBC (Bld) 39.0 % 19-41 [facility] Work Phone: Blood monocytes/100 leukocyt eson 09-05-2022 Monocytes/100 WBC (Bld) 8.5 % 0-10 [facility] Work Phone: Blood platelet mean volumeon 09-05-2022 Platelet mean volume (Bld) [Entitic vol] 9.6 fL 6.2-12.0 [facility] Work Phone: Determination of erythrocyte mean corpuscular volume (MCV)on 09-05-2022 MCV (RBC) [Entitic vol] 92.1 fL 81-99 [facility] Work Phone: Hematocrit Auto (Bld) [Volum e fraction]on 09-05-2022 Hematocrit (Bld) [Volume fraction] 38.4 % 37-47 [facility] Work Phone: Laboratory - Chemistry and C hemistry - challengeon 09-05-2022 CO2 [Moles/Vol] 27.0 mmol/L 21.0-32.0 [facility] Work Phone: Urea nitrogen/Creatinine [Mass ratio] 16.7 mg/mg 10-20 [facility] Work Phone: Laboratory - Hematology and Cell countson 09-05-2022 Erythrocyte distribution width (RBC) [Entitic vol] 42.3 fL 35.1-43.9 [facility] Work Phone: Erythrocyte distribution width (RBC) [Ratio] 12.7 % 11.6-14.6 [facility] Work Phone: Immature granulocytes/100 WBC (Bld) 0.400 % 0.0-0.9 [facility] Work Phone: Comment on above: IG% - Immature Granu locytes (promyelocytes, myelocytes and metamyelocytes) > 1% indicates that a LEFT SHIFT is Present. MCH (RBC) [Entitic mass] 31.4 pg 27.0-32.0 [facility] Work Phone: Nucleated RBC/100 WBC (Bld) [Ratio] 0 % 0-5 [facility] Work Phone: MCHC Auto (RBC) [Mass/Vol]on 09-05-2022 MCHC (RBC) [Mass/Vol] 34.1 g/dL 32-36 [facility] Work Phone: No Panel Informationon 09-05 Estimated Creatinine Clearance Calc 78.65 ml/min [facility] Work Phone: Estimated GFR (MDRD) Amer 103 mL/min >60 [facility] Work Phone: Comment on above: GFR Calc Estimated GFR (MDRD) Non-Af Amer 85 mL/min >60 [facility] Work Phone: Comment on above: Non- GFR Calc Ethyl Alcohol Level 237.0 mg/dL [facility] Work Phone: Comment on above: The serum:whole bloo d ethanol ratio is approximately 1.14and varies slightly with hematocrit. Medical Alcohol reference interval and critical value innon-tolerant individuals; 50 - 100 Impairment 100 Intoxication 100 - 250 Severe Poisoning 250 - 400 Deep/possible fatal coma Platelets bldon 09-05-2022 Platelets (Bld) [#/Vol] 318 10*3/uL 150-450 [facility] Work Phone: Serum or plasma calcium alphonso urement (mass/volume)on 09-05-2022 Calcium [Mass/Vol] 8.8 mg/dL 8.5-10.1 [facility] Work Phone: Serum or plasma creatinine m easurement (mass/volume)on 09-05-2022 Creatinine [Mass/Vol] 0.78 mg/dL 0.55-1.02 [facility] Work Phone: Comment on above: The validity of the calculated GFR & GFRAA in patients over 70 years has not been determined. Clinical correlation is essential. Serum or plasma urea nitroge n measurement (mass/volume)on 09-05-2022 Urea nitrogen [Mass/Vol] 13 mg/dL 7-18 [facility] Work Phone: Thin prep Papanicolaou smear with manual screeningon 09-05-2022 Thin prep Papanicolaou smear with manual screening 10 5-15 [facility] Work Phone: XR HIP GENERAL 3V PELV/AP/LA T LEFTon 07-21-2022 [facility] XR Pelvis and Hip - left AP and Lateral frogon 07-21-2022 IMPRESSION: Negative pelvis and left hip. 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: [employer] Transcribe Date/Time: Jul 21 2022 7:27P Dictated by : BETINA MAGANA MD This examination was interpreted and the report reviewed and electronically signed by: BETINA MAGANA MD on Jul 21 2022 7:29PM [facility] DIVISION OF RADIOLOGY * * *Final Report* [...] dislocation. DIVISION OF RADIOLOGY Provider, Blank goode Orr - 07/21/2022 * * *Final Report* * [...] IMPRESSION IMPRESSION: Negative pelvis and left hip. 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: [employer] Transcribe Date/Time: Jul 21 2022 7:27P Dictated by : BETINA MAGANA MD This examination was interpreted and the report reviewed and electronically signed by: BETINA MAGANA MD on Jul 21 2022 7:29PM EST [facility] Radiology Study observation (narrative) Aric zhang [facility] XR Pelvis and Hip - left AP and Lateral frogOrdered By: Ccf Provider on 07-21-2022 [facility] Laboratory - Microbiology an d Antimicrobial susceptibilityon 05-31-2022 SARS-CoV-2 (COVID-19) RNA ALLEY+probe Ql (Unsp spec) Not detected [facility] Work Phone: Absolute lymphocyte counton 02-22-2022 Lymphocytes Auto (Unsp spec) [#/Vol] 2.29 10*3/uL 0.83-4.51 [facility] Work Phone: Basophil percentageon 2021 Basophils/100 WBC (Bld) 0.6 % 0-1 [facility] Work Phone: Chloride [Moles/Vol] 103 mmol/L 98-107 [facility]: Eosinophils/100 WBC (Bld) 4.7 % 0-5 [facility] Work Phone: Glucose [Mass/Vol] 207 mg/dL 74-106 [facility] Work Phone: Comment on above: Glucose result great er than or equal to 200 mg/dLsuggests DIABETES MELLITUS per A.D.A. criteria. Neutrophils (Bld) [#/Vol] 3.2 10*3/uL 2.0-7.7 [facility] Work Phone: Neutrophils/100 WBC (Bld) 49.0 % 47-70 [facility] Work Phone: Potassium [Moles/Vol] 3.6 mmol/L 3.5-5.1 [facility] Work Phone: Sodium [Moles/Vol] 135 mmol/L 136-145 [facility] Work Phone: [phone] WBC (Bld) [#/Vol] 6.6 10*3/uL 4.4-11.0 [facility] Work Phone: Blood erythrocytes count (nu mber/volume)on 02-22-2022 RBC (Bld) [#/Vol] 4.50 10*6/uL 4.2-5.4 [facility] Work Phone: [phone] Blood hemoglobin measurement (mass/volume)on 02-22-2022 Hemoglobin (Bld) [Mass/Vol] 13.8 g/dL 12.0-15.0 [facility] Work Phone: Blood lymphocytes/100 leukoc yteson 02-22-2022 Lymphocytes/100 WBC (Bld) 34.9 % 19-41 [facility] Work Phone: Blood monocytes/100 leukocyt eson 02-22-2022 Monocytes/100 WBC (Bld) 10.2 % 0-10 [facility] Work Phone: Blood platelet mean volumeon 02-22-2022 Platelet mean volume (Bld) [Entitic vol] 10.3 fL 6.2-12.0 [facility] Work Phone: Determination of erythrocyte mean corpuscular volume (MCV)on 02-22-2022 MCV (RBC) [Entitic vol] 88.9 fL 81-99 [facility] Work Phone: Hematocrit Auto (Bld) [Volum e fraction]on 02-22-2022 Hematocrit (Bld) [Volume fraction] 40.0 % 37-47 [facility] Work Phone: Laboratory - Chemistry and C hemistry - challengeon 02-22-2022 CO2 [Moles/Vol] 27.0 mmol/L 21.0-32.0 [facility] Work Phone: Urea nitrogen/Creatinine [Mass ratio] 12.3 mg/mg 10-20 [facility] Work Phone: Laboratory - Hematology and Cell countson 02-22-2022 Erythrocyte distribution width (RBC) [Entitic vol] 39.8 fL 35.1-43.9 [facility] Work Phone: Erythrocyte distribution width (RBC) [Ratio] 12.2 % 11.6-14.6 [facility] Work Phone: Immature granulocytes/100 WBC (Bld) 0.600 % 0.0-0.9 [facility] Work Phone: Comment on above: IG% - Immature Granu locytes (promyelocytes, myelocytes and metamyelocytes) > 1% indicates that a LEFT SHIFT is Present. MCH (RBC) [Entitic mass] 30.7 pg 27.0-32.0 [facility] Work Phone: Nucleated RBC/100 WBC (Bld) [Ratio] 0 % 0-5 [facility] Work Phone: MCHC Auto (RBC) [Mass/Vol]on 02-22-2022 MCHC (RBC) [Mass/Vol] 34.5 g/dL 32-36 [facility]: No Panel Informationon 02-22 D-Dimer Quantitative (PE/DVT) < 0.27 FEU/ug/m 0.27-0.49 [facility] Work Phone: Comment on above: NORMAL D-Dimer level (<0.50) indicates no DVT or PE. Estimated Creatinine Clearance Calc 84.92 ml/min [facility] Work Phone: Estimated GFR (MDRD) Amer 111 mL/min >60 [facility] Work Phone: Comment on above: GFR Calc Estimated GFR (MDRD) Non-Af Amer 91 mL/min >60 [facility] Work Phone: Comment on above: Non- GFR Calc Troponin I High Sensitivity < 3 pg/mL 3.0-54.0 [facility] Work Phone: Comment on above: Please Note: New Miri t Units and Gender Specific Reference Ranges. For more information see Policy Stat Procedure [place] High Sensitivity Troponin (TNIH) and attachments. Platelets bldon 02-22-2022 Platelets (Bld) [#/Vol] 311 10*3/uL 150-450 [facility] Work Phone: Serum or plasma calcium alphonso urement (mass/volume)on 02-22-2022 Calcium [Mass/Vol] 9.4 mg/dL 8.5-10.1 [facility] Work Phone: Serum or plasma creatinine m easurement (mass/volume)on 02-22-2022 Creatinine [Mass/Vol] 0.73 mg/dL 0.55-1.02 [facility] Work Phone: Comment on above: The validity of the calculated GFR & GFRAA in patients over 70 years has not been determined. Clinical correlation is essential. Serum or plasma urea nitroge n measurement (mass/volume)on 02-22-2022 Urea nitrogen [Mass/Vol] 9 mg/dL 7-18 [facility] Work Phone: Thin prep Papanicolaou smear with manual screeningon 02-22-2022 Thin prep Papanicolaou smear with manual screening 5 5-15 [facility] Work Phone: ALCOHOLon 06-10-2021 ALCOHOL Canceled Normal [facility] Comment on above: Order Comment: TEST ALCOHOL WAS CANCELLED, 06/10/2021 20:44 Result Comment: FOR MEDICAL USE ONLY. Performed By: #### A #### [facility] [address] [place] [address] Provider Note - ED v2on 05-29 Provider [...] made to minimize errors. Minor errors in hand miter operator may be present. Please call if questions.. [...] documented data. SIGNIFICANT EVENTS: No documented data. SERVICE DESK AGENT: Is : no(1) Is : no(1) RESULTS/VITAL [...] Referenced From Triage - ED 10-Jun-2021 20:27 [facility] Triage - EDon 06-10-2021 Triage [...] BMI (kg/m2): 27.531 Calculated BSA (m2) 1.81 [place] Coma Scale: Best Eye Response: (E4) spontaneous [...] Updated: 10-Jun-2021 20:30 by Rocky Hebert (RN) [facility] Vital Signs Date Time Vital Sign Value Performing Clinician Facility 08-15-2025 15:00-0400 Heart rate 103 /min Abisai Haley MD Work Phone: [facility] 08-15-2025 14:00-0400 Body temperature 98.3 [degF] Abisai Haley MD Work Phone: [facility] 08-15-2025 14:00-0400 Diastolic blood pressure 91 mm[Hg] Abisai Haley MD Work Phone: [facility] 08-15-2025 14:00-0400 Respiratory rate 14 /min Abisai Haley MD Work Phone: [facility] 08-15-2025 14:00-0400 SaO2% (BldA) [Mass fraction] 100 % Abisai Haley MD Work Phone: [facility] 08-15-2025 14:00-0400 Systolic blood pressure 123 mm[Hg] Abisai Haley MD Work Phone: [facility] 08-15-2025 06:00-0400 Body mass index (BMI) [Ratio] 20.3 kg/m2 Abisai Haley MD Work Phone: [facility] 08-15-2025 06:00-0400 Body weight 53.8 kg Abisai Haley MD Work Phone: [facility] 08-13-2025 09:16-0400 Body height 162.56 cm Abisai Haley MD Work Phone: [facility] 08-13-2025 09:00-0400 Inhaled oxygen flow rate 2 L/min Abisai Haley MD Work Phone: [facility] 08-12-2025 12:51-0400 Heart rate 115 /min Abisai Haley MD Work Phone: [facility] 08-12-2025 12:51-0400 Inhaled oxygen flow rate 2 L/min Abisai Haley MD Work Phone: [facility] 08-12-2025 12:51-0400 Respiratory rate 17 /min Abisai Haley MD Work Phone: [facility] 08-12-2025 12:51-0400 SaO2% (BldA) [Mass fraction] 95 % Abisai Haley MD Work Phone: [facility] 08-12-2025 12:43-0400 Body mass index (BMI) [Ratio] 20.2 kg/m2 Abisai Haley MD Work Phone: [facility] 08-12-2025 12:43-0400 Body weight 53.6 kg Abisai Haley MD Work Phone: [facility] 08-12-2025 12:42-0400 Body temperature 98.3 [degF] Abisai Haley MD Work Phone: [facility] 08-12-2025 12:42-0400 Diastolic blood pressure 85 mm[Hg] Abisai Haley MD Work Phone: [facility] 08-12-2025 12:42-0400 Systolic blood pressure 161 mm[Hg] Abisai Haley MD Work Phone: [facility] 08-12-2025 08:19-0400 Body height 162.56 cm Abisai Haley MD Work Phone: [facility] 07-20-2025 13:05-0400 Heart rate 79 /min Abisai Haley MD Work Phone: 6(391)189-003555 [address] 07-20-2025 13:05-0400 Respiratory rate 16 /min Abisai Haley MD Work Phone: 6(060)058-567755 [address] 07-20-2025 07:27-0400 Inhaled oxygen flow rate 2 L/min Abisai Haley MD Work Phone: 5(376)063-969955 [address] 07-20-2025 07:27-0400 SaO2% (BldA) [Mass fraction] 94 % Abisai Haley MD Work Phone: 4(041)024-995355 [address] 07-20-2025 03:33-0400 Body temperature 98.7 [degF] Abisai Haley MD Work Phone: 7(032)332-501006 [place] [address] 07-20-2025 03:33-0400 Diastolic blood pressure 69 mm[Hg] Abisai Haley MD Work Phone: 9(127)301-542506 [place] [address] 07-20-2025 03:33-0400 Systolic blood pressure 116 mm[Hg] Abisai Haley MD Work Phone: 7(525)912-914555 [address] 07-20-2025 02:08-0400 Body mass index (BMI) [Ratio] 24.1 kg/m2 Abisai Haley MD Work Phone: 0(078)315-198955 [address] 07-20-2025 02:08-0400 Body weight 64.1 kg Abisai Haley MD Work Phone: 6(359)397-271255 [address] 07-18-2025 15:17-0400 Body height 162.56 cm Abisai Haley MD Work Phone: 8(770)686-179[address] [place] [address] 07-17-2025 13:12-0400 Body temperature 98.4 [degF] Abisai Haley MD Work Phone: [facility] 07-17-2025 13:12-0400 Diastolic blood pressure 97 mm[Hg] Abisai Haley MD Work Phone: [facility] 07-17-2025 13:12-0400 Heart rate 88 /min Abisai Haley MD Work Phone: [facility] 07-17-2025 13:12-0400 Respiratory rate 16 /min Abisai Haley MD Work Phone: [facility] 07-17-2025 13:12-0400 SaO2% (BldA) [Mass fraction] 99 % Abisai Haley MD Work Phone: [facility] 07-17-2025 13:12-0400 Systolic blood pressure 181 mm[Hg] Abisai Haley MD Work Phone: 6(863)002-760055 [address] 07-17-2025 10:14-0400 Body height 162.56 cm Abisai Haley MD Work Phone: [facility] 07-17-2025 10:14-0400 Body mass index (BMI) [Ratio] 20.7 kg/m2 Abisai Haley MD Work Phone: [facility] 07-17-2025 10:14-0400 Body weight 54.93 kg Abisai Haley MD Work Phone: [facility] 05-28-2025 13:43-0400 Body temperature 98 [degF] Abisai Haley MD Work Phone: [facility] 05-28-2025 13:43-0400 Diastolic blood pressure 77 mm[Hg] Abisai Haley MD Work Phone: 0(380)063-182886 [place] [address] 05-28-2025 13:43-0400 Heart rate 83 /min Abisai Haley MD Work Phone: [facility] 05-28-2025 13:43-0400 Respiratory rate 16 /min Abisai Haley MD Work Phone: [facility] 05-28-2025 13:43-0400 SaO2% (BldA) [Mass fraction] 96 % Abisai Haley MD Work Phone: [facility] 05-28-2025 13:43-0400 Systolic blood pressure 117 mm[Hg] Abisai Haley MD Work Phone: [facility] 05-27-2025 08:08-0400 Inhaled oxygen flow rate 2 L/min Abisai Haley MD Work Phone: 4(537)819-848086 [place] [address] 05-25-2025 02:53-0400 Body height 162.56 cm Abisai Haley MD Work Phone: 4(945)859-803106 [place] [address] 05-25-2025 02:53-0400 Body mass index (BMI) [Ratio] 21.4 kg/m2 Abisai Haley MD Work Phone: 8(214)711-362806 [place] [address] 05-25-2025 02:53-0400 Body weight 56.7 kg Abisai Haley MD Work Phone: [facility] 05-25-2025 02:24-0400 Respiratory rate 16 /min Abisai Haley MD Work Phone: [facility] 05-25-2025 02:24-0400 SaO2% (BldA) [Mass fraction] 96 % Abisai Haley MD Work Phone: [facility] 05-25-2025 00:56-0400 Body temperature 98.3 [degF] Abisai Haley MD Work Phone: [facility] 05-25-2025 00:56-0400 Diastolic blood pressure 63 mm[Hg] Abisai Haley MD Work Phone: [facility] 05-25-2025 00:56-0400 Heart rate 99 /min Abisai Haley MD Work Phone: [facility] 05-25-2025 00:56-0400 Systolic blood pressure 141 mm[Hg] Abisai Haley MD Work Phone: 6(703)524-776386 [place] [address] 05-24-2025 23:09-0400 Body height 162.56 cm Abisai Haley MD Work Phone: [facility] 05-24-2025 23:09-0400 Body mass index (BMI) [Ratio] 21.7 kg/m2 Abisai Haley MD Work Phone: [facility] 05-24-2025 23:09-0400 Body weight 57.4 kg Abisai Haley MD Work Phone: [facility] 05-06-2025 11:28-0400 Body temperature 97.9 [degF] Abisai Haley MD Work Phone: [facility] 05-06-2025 11:28-0400 Diastolic blood pressure 80 mm[Hg] Abisai Haley MD Work Phone: [facility] 05-06-2025 11:28-0400 Heart rate 75 /min Abisai Haley MD Work Phone: [facility] 05-06-2025 11:28-0400 Respiratory rate 16 /min Abisai Haley MD Work Phone: [facility] 05-06-2025 11:28-0400 SaO2% (BldA) [Mass fraction] 92 % Abisai Haley MD Work Phone: [facility] 05-06-2025 11:28-0400 Systolic blood pressure 125 mm[Hg] Abisai Haley MD Work Phone: [facility] 05-06-2025 02:33-0400 Inhaled oxygen concentration 21 % Abisai Haley MD Work Phone: [facility] 05-05-2025 20:11-0400 Inhaled oxygen flow rate 2 L/min Abisai Haley MD Work Phone: [facility] 05-04-2025 11:23-0400 Body height 162.56 cm Abisai Haley MD Work Phone: [facility] 05-04-2025 11:23-0400 Body weight 59.5 kg Abisai Haley MD Work Phone: [facility] 04-26-2025 18:15-0400 Body mass index (BMI) [Ratio] 22.5 kg/m2 Abisai Haley MD Work Phone: [facility] 04-26-2025 17:00-0400 Diastolic blood pressure 86 mm[Hg] Abisai Haley MD Work Phone: [facility] 04-26-2025 17:00-0400 Heart rate 90 /min Abisai Haley MD Work Phone: [facility] 04-26-2025 17:00-0400 Respiratory rate 29 /min Abisai Haley MD Work Phone: [facility] 04-26-2025 17:00-0400 SaO2% (BldA) [Mass fraction] 95 % Abisai Haley MD Work Phone: [facility] 04-26-2025 17:00-0400 Systolic blood pressure 169 mm[Hg] Abisai Haley MD Work Phone: [facility] 04-26-2025 16:19-0400 Body temperature 98.1 [degF] Abisai Haley MD Work Phone: [facility] 04-26-2025 13:42-0400 Body height 162.56 cm Abisai Haley MD Work Phone: [facility] 04-26-2025 13:42-0400 Body mass index (BMI) [Ratio] 22.3 kg/m2 Abisai Haley MD Work Phone: [facility] 04-26-2025 13:42-0400 Body weight 58.96 kg Abisai Haley MD Work Phone: [facility] 04-12-2025 00:24-0400 Body temperature 98 [degF] Abisai Haley MD Work Phone: [facility] 04-12-2025 00:24-0400 Diastolic blood pressure 66 mm[Hg] Abisai Haley MD Work Phone: [facility] 04-12-2025 00:24-0400 Heart rate 78 /min Abisai Haley MD Work Phone: [facility] 04-12-2025 00:24-0400 Respiratory rate 16 /min Abisai Haley MD Work Phone: [facility] 04-12-2025 00:24-0400 SaO2% (BldA) [Mass fraction] 100 % Abisai Haley MD Work Phone: [facility] 04-12-2025 00:24-0400 Systolic blood pressure 125 mm[Hg] Abisai Haley MD Work Phone: [facility] 04-11-2025 23:20-0400 Inhaled oxygen flow rate 2 L/min Abisai Haley MD Work Phone: [facility] 04-11-2025 21:46-0400 Body mass index (BMI) [Ratio] 24.4 kg/m2 Abisai Haley MD Work Phone: [facility] 04-11-2025 21:46-0400 Body weight 64.6 kg Abisai Haley MD Work Phone: [facility] 04-11-2025 21:42-0400 Body height 162.56 cm Abisai Haley MD Work Phone: [facility] 04-04-2025 17:00-0400 Heart rate 97 /min Abisai Haley MD Work Phone: [facility] 04-04-2025 17:00-0400 Respiratory rate 25 /min Abisai Haley MD Work Phone: [facility] 04-04-2025 16:03-0400 Body temperature 98.4 [degF] Abisai Haley MD Work Phone: [facility] 04-04-2025 16:03-0400 Diastolic blood pressure 88 mm[Hg] Abisai Haley MD Work Phone: [facility] 04-04-2025 16:03-0400 SaO2% (BldA) [Mass fraction] 97 % Abisai Haley MD Work Phone: [facility] 04-04-2025 16:03-0400 Systolic blood pressure 157 mm[Hg] Abisai Haley MD Work Phone: [facility] 04-04-2025 11:51-0400 Body mass index (BMI) [Ratio] 25.1 kg/m2 Abisai Haley MD Work Phone: [facility] 04-04-2025 11:51-0400 Body weight 66.4 kg Abisai Haley MD Work Phone: [facility] 04-04-2025 10:24-0400 Body height 162.56 cm Abisai Haley MD Work Phone: [facility] 04-22-2024 13:48-0400 Body mass index (BMI) [Ratio] 29.6 kg/m2 Aretha Praisler-Wood TIRE TECHNICIAN.RUBY SOFTWARE DEVELOPER Work Phone: [facility] 04-22-2024 13:48-0400 Body temperature 97.39 [degF] Aretha Praisler-Wood TIRE TECHNICIAN.RUBY SOFTWARE DEVELOPER Work Phone: [facility] 04-22-2024 13:48-0400 Body weight 75.8 kg Aretha Praisler-Wood TIRE TECHNICIAN.RUBY SOFTWARE DEVELOPER Work Phone: [facility] 04-22-2024 13:48-0400 Diastolic blood pressure 84 mm[Hg] Aretha Praisler-Wood TIRE TECHNICIAN.RUBY SOFTWARE DEVELOPER Work Phone: [facility] 04-22-2024 13:48-0400 Heart rate 115 /min Aretha Praisler-Wood TIRE TECHNICIAN.RUBY SOFTWARE DEVELOPER Work Phone: [facility] 04-22-2024 13:48-0400 Respiratory rate 20 /min Aretha Praisler-Wood TIRE TECHNICIAN.RUBY SOFTWARE DEVELOPER Work Phone: [facility] 04-22-2024 13:48-0400 SaO2% (BldA) [Mass fraction] 98 % Aretha Praisler-Wood TIRE TECHNICIAN.RUBY SOFTWARE DEVELOPER Work Phone: [facility] 04-22-2024 13:48-0400 Systolic blood pressure 120 mm[Hg] Aretha Schofield APRN.CNP Work Phone: [facility] 03-22-2024 07:08-0400 Body temperature 97.7 [degF] DO Milana Jose Work Phone: [facility] 03-22-2024 07:08-0400 Diastolic blood pressure 84 mm[Hg] DO Milana Jose Work Phone: [facility] 03-22-2024 07:08-0400 Heart rate 102 /min DO Milana Jose Work Phone: [facility] 03-22-2024 07:08-0400 Respiratory rate 17 /min DO Milana Jose Work Phone: [facility] 03-22-2024 07:08-0400 SaO2% (BldA) [Mass fraction] 95 % DO Milana Jose Work Phone: [facility] 03-22-2024 07:08-0400 Systolic blood pressure 134 mm[Hg] DO Milana Jose Work Phone: [facility] 01-24-2024 21:30-0500 Body temperature 96.9 [degF] DO Milana Jose Work Phone: [facility] 01-24-2024 21:30-0500 Diastolic blood pressure 61 mm[Hg] DO Milana Jose Work Phone: [facility] 01-24-2024 21:30-0500 Heart rate 96 /min DO Milana Jose Work Phone: [facility] 01-24-2024 21:30-0500 Respiratory rate 16 /min DO Milana Jose Work Phone: [facility] 01-24-2024 21:30-0500 SaO2% (BldA) [Mass fraction] 98 % DO Milana Jose Work Phone: [facility] 01-24-2024 21:30-0500 Systolic blood pressure 149 mm[Hg] DO Milana Ojse Work Phone: [facility] 01-24-2024 21:25-0500 Body mass index (BMI) [Ratio] 28 kg/m2 DO Milana Jose Work Phone: [facility] 01-24-2024 21:25-0500 Body weight 74 kg DO Milana Jose Work Phone: [facility] 01-24-2024 16:39-0500 Body height 162.56 cm DO Milana Jose Work Phone: [facility] 10-19-2023 10:54-0500 Body height 162.56 cm DO Milana Jose Work Phone: [facility] 10-19-2023 10:54-0500 Body mass index (BMI) [Ratio] 26.2 kg/m2 DO Milana Jose Work Phone: [facility] 10-19-2023 10:54-0500 Body temperature 98.4 [degF] DO Milana Jose Work Phone: [facility] 10-19-2023 10:54-0500 Body weight 69.39 kg DO Milana Jose Work Phone: [facility] 10-19-2023 10:54-0500 Diastolic blood pressure 80 mm[Hg] DO Milana Jose Work Phone: [facility] 10-19-2023 10:54-0500 Heart rate 97 /min DO Milana Jose Work Phone: [facility] 10-19-2023 10:54-0500 Respiratory rate 16 /min DO Milana Jose Work Phone: [facility] 10-19-2023 10:54-0500 SaO2% (BldA) [Mass fraction] 90 % DO Milana Jose Work Phone: [facility] 10-19-2023 10:54-0500 Systolic blood pressure 147 mm[Hg] DO Milana Jose Work Phone: [facility] 10-10-2023 17:58-0500 Diastolic blood pressure 68 mm[Hg] DO Milana Jose Work Phone: [facility] 10-10-2023 17:58-0500 Heart rate 81 /min DO Milana Jose Work Phone: [facility] 10-10-2023 17:58-0500 Respiratory rate 16 /min DO Milana Jose Work Phone: [facility] 10-10-2023 17:58-0500 SaO2% (BldA) [Mass fraction] 97 % DO Milana Jose Work Phone: [facility] 10-10-2023 17:58-0500 Systolic blood pressure 128 mm[Hg] DO Milana Jose Work Phone: [facility] 10-10-2023 15:25-0500 Body mass index (BMI) [Ratio] 26.3 kg/m2 DO Milana Jose Work Phone: [facility] 10-10-2023 15:25-0500 Body temperature 98.4 [degF] DO Milana Jose Work Phone: [facility] 10-10-2023 15:25-0500 Body weight 69.58 kg DO Milana Jose Work Phone: [facility] 09-27-2023 15:27-0400 Body temperature 98.2 [degF] DO Milana Jose Work Phone: [facility] 09-27-2023 15:27-0400 Diastolic blood pressure 78 mm[Hg] DO Milana Jose Work Phone: [facility] 09-27-2023 15:27-0400 Heart rate 92 /min DO Milana Jose Work Phone: [facility] 09-27-2023 15:27-0400 Respiratory rate 17 /min DO Milana Jose Work Phone: [facility] 09-27-2023 15:27-0400 SaO2% (BldA) [Mass fraction] 92 % DO Milana Jose Work Phone: [facility] 09-27-2023 15:27-0400 Systolic blood pressure 145 mm[Hg] DO Milana Jose Work Phone: [facility] 09-15-2023 12:21-0400 Body temperature 98.6 [degF] DO Milana Jose Work Phone: [facility] 09-15-2023 12:21-0400 Diastolic blood pressure 83 mm[Hg] DO Milana Jose Work Phone: [facility] 09-15-2023 12:21-0400 Heart rate 93 /min DO Milana Jose Work Phone: [facility] 09-15-2023 12:21-0400 Respiratory rate 17 /min DO Milana Jose Work Phone: [facility] 09-15-2023 12:21-0400 SaO2% (BldA) [Mass fraction] 94 % DO Milana Jose Work Phone: [facility] 09-15-2023 12:21-0400 Systolic blood pressure 149 mm[Hg] DO Milana Jose Work Phone: [facility] 08-25-2023 10:00-0400 Body height 162.56 cm DO Milana Jose Work Phone: [facility] 08-25-2023 10:00-0400 Body mass index (BMI) [Ratio] 28.3 kg/m2 DO Milana Jose Work Phone: [facility] 08-25-2023 10:00-0400 Body weight 74.84 kg DO Milana Jose Work Phone: [facility] 08-25-2023 10:00-0400 Diastolic blood pressure 85 mm[Hg] DO Milana Jose Work Phone: [facility] 08-25-2023 10:00-0400 Heart rate 63 /min DO Milana Jose Work Phone: [facility] 08-25-2023 10:00-0400 Respiratory rate 18 /min DO Milana Jose Work Phone: [facility] 08-25-2023 10:00-0400 SaO2% (BldA) [Mass fraction] 96 % DO Milana Jose Work Phone: [facility] 08-25-2023 10:00-0400 Systolic blood pressure 136 mm[Hg] DO Milana Jsoe Work Phone: [facility] 08-23-2023 15:04-0400 Body temperature 97.6 [degF] DO Milana Jose Work Phone: [facility] 08-23-2023 15:04-0400 Diastolic blood pressure 78 mm[Hg] DO Milana Jose Work Phone: [facility] 08-23-2023 15:04-0400 Heart rate 78 /min DO Milana Jose Work Phone: [facility] 08-23-2023 15:04-0400 Respiratory rate 14 /min DO Milana Jose Work Phone: [facility] 08-23-2023 15:04-0400 SaO2% (BldA) [Mass fraction] 99 % DO Milana Jose Work Phone: [facility] 08-23-2023 15:04-0400 Systolic blood pressure 124 mm[Hg] DO Milana Jose Work Phone: [facility] 08-23-2023 11:44-0400 Body height 162.56 cm DO Milana Jose Work Phone: [facility] 08-23-2023 11:44-0400 Body mass index (BMI) [Ratio] 28.3 kg/m2 DO Milana Jose Work Phone: [facility] 08-23-2023 11:44-0400 Body weight 74.88 kg DO Milana Jose Work Phone: [facility] 07-29-2023 17:56-0400 Diastolic blood pressure 74 mm[Hg] DO Milana Jose Work Phone: [facility] 07-29-2023 17:56-0400 Heart rate 73 /min DO Milana Jose Work Phone: [facility] 07-29-2023 17:56-0400 Respiratory rate 15 /min DO Milana Jose Work Phone: [facility] 07-29-2023 17:56-0400 SaO2% (BldA) [Mass fraction] 98 % DO Milana Jose Work Phone: [facility] 07-29-2023 17:56-0400 Systolic blood pressure 117 mm[Hg] DO Milana Jose Work Phone: [facility] 07-29-2023 14:11-0400 Body height 162.56 cm DO Milana Jose Work Phone: [facility] 07-29-2023 14:11-0400 Body mass index (BMI) [Ratio] 27.8 kg/m2 DO Milana Jose Work Phone: [facility] 07-29-2023 14:11-0400 Body temperature 96.3 [degF] DO Milana Jose Work Phone: [facility] 07-29-2023 14:11-0400 Body weight 73.48 kg DO Milana Jose Work Phone: [facility] 07-01-2023 09:44-0400 Body height 162.56 cm DO Milana Jose Work Phone: [facility] 07-01-2023 09:44-0400 Body mass index (BMI) [Ratio] 27.8 kg/m2 DO Milana Jose Work Phone: [facility] 07-01-2023 09:44-0400 Body temperature 98.5 [degF] DO Milana Jose Work Phone: [facility] 07-01-2023 09:44-0400 Body weight 73.48 kg DO Milana Jose Work Phone: [facility] 07-01-2023 09:44-0400 Diastolic blood pressure 88 mm[Hg] DO Milana Jose Work Phone: [facility] 07-01-2023 09:44-0400 Heart rate 88 /min DO Milana Jose Work Phone: [facility] 07-01-2023 09:44-0400 Respiratory rate 18 /min DO Milana Jose Work Phone: [facility] 07-01-2023 09:44-0400 SaO2% (BldA) [Mass fraction] 95 % DO Milana Jose Work Phone: [facility] 07-01-2023 09:44-0400 Systolic blood pressure 136 mm[Hg] DO Milana Jose Work Phone: [facility] 05-25-2023 02:54-0400 Diastolic blood pressure 64 mm[Hg] DO Milana Jose Work Phone: [facility] 05-25-2023 02:54-0400 Heart rate 90 /min DO Milana Jose Work Phone: [facility] 05-25-2023 02:54-0400 Respiratory rate 18 /min DO Milana Jose Work Phone: [facility] 05-25-2023 02:54-0400 Systolic blood pressure 132 mm[Hg] DO Milana Jose Work Phone: [facility] 05-25-2023 02:11-0400 SaO2% (BldA) [Mass fraction] 94 % DO Milana Jose Work Phone: [facility] 05-24-2023 21:32-0400 Body height 162.99 cm DO Milana Jose Work Phone: [facility] 05-24-2023 21:32-0400 Body mass index (BMI) [Ratio] 28.9 kg/m2 DO Milana Jose Work Phone: [facility] 05-24-2023 21:32-0400 Body temperature 96.7 [degF] DO Milana Jose Work Phone: [facility] 05-24-2023 21:32-0400 Body weight 76.9 kg DO Milana Jose Work Phone: [facility] 05-20-2023 09:58-0400 Body height 162.56 cm DO Milana Jose Work Phone: [facility] 05-20-2023 09:57-0400 Body mass index (BMI) [Ratio] 27.6 kg/m2 DO Milana Jose Work Phone: [facility] 05-20-2023 09:57-0400 Body weight 73.02 kg DO Milana Jose Work Phone: [facility] 05-20-2023 09:57-0400 Diastolic blood pressure 98 mm[Hg] DO Milana Jose Work Phone: [facility] 05-20-2023 09:57-0400 Heart rate 81 /min DO Milana Jose Work Phone: [facility] 05-20-2023 09:57-0400 Respiratory rate 18 /min DO Milana Jose Work Phone: [facility] 05-20-2023 09:57-0400 SaO2% (BldA) [Mass fraction] 97 % DO Milana Jose Work Phone: [facility] 05-20-2023 09:57-0400 Systolic blood pressure 156 mm[Hg] DO Milana Jose Work Phone: [facility] 05-05-2023 00:54-0400 Diastolic blood pressure 62 mm[Hg] DO Milana Jose Work Phone: [facility] 05-05-2023 00:54-0400 Heart rate 68 /min DO Milana Jose Work Phone: [facility] 05-05-2023 00:54-0400 Respiratory rate 16 /min DO Milana Jose Work Phone: [facility] 05-05-2023 00:54-0400 SaO2% (BldA) [Mass fraction] 96 % DO Milana Jose Work Phone: [facility] 05-05-2023 00:54-0400 Systolic blood pressure 97 mm[Hg] DO Milana Jose Work Phone: [facility] 05-04-2023 21:23-0400 Body mass index (BMI) [Ratio] 27.2 kg/m2 DO Milana Jose Work Phone: [facility] 05-04-2023 21:23-0400 Body weight 72 kg DO Milana Jose Work Phone: [facility] 05-04-2023 19:53-0400 Body height 162.56 cm DO Milana Jose Work Phone: [facility] 05-04-2023 19:53-0400 Body temperature 97.3 [degF] DO Milana Jose Work Phone: [facility] 04-11-2023 09:46-0400 Body temperature 98 [degF] DO Milana Jose Work Phone: [facility] 04-11-2023 09:46-0400 Diastolic blood pressure 63 mm[Hg] DO Milana Jose Work Phone: [facility] 04-11-2023 09:46-0400 Heart rate 85 /min DO Milana Jose Work Phone: [facility] 04-11-2023 09:46-0400 Respiratory rate 14 /min DO Milana Jose Work Phone: [facility] 04-11-2023 09:46-0400 SaO2% (BldA) [Mass fraction] 97 % DO Milana Jose Work Phone: [facility] 04-11-2023 09:46-0400 Systolic blood pressure 118 mm[Hg] DO Milana Jose Work Phone: [facility] 04-10-2023 03:47-0400 Body height 162.56 cm DO Milana Jose Work Phone: [facility] 04-10-2023 03:47-0400 Body mass index (BMI) [Ratio] 27.4 kg/m2 DO Milana Jose Work Phone: [facility] 04-10-2023 03:47-0400 Body weight 72.5 kg DO Milana Jose Work Phone: [facility] 04-10-2023 02:34-0400 Diastolic blood pressure 61 mm[Hg] DO Milana Jose Work Phone: [facility] 04-10-2023 02:34-0400 Heart rate 87 /min DO Milana Joes Work Phone: [facility] 04-10-2023 02:34-0400 Respiratory rate 16 /min DO Milana Jose Work Phone: [facility] 04-10-2023 02:34-0400 SaO2% (BldA) [Mass fraction] 95 % DO Milana Jose Work Phone: [facility] 04-10-2023 02:34-0400 Systolic blood pressure 114 mm[Hg] DO Milana Jose Work Phone: [facility] 04-10-2023 02:15-0400 Body temperature 98 [degF] DO Milana Jose Work Phone: [facility] 04-09-2023 22:23-0400 Body height 162.56 cm DO Milana Jose Work Phone: [facility] 04-09-2023 22:23-0400 Body mass index (BMI) [Ratio] 26.8 kg/m2 DO Milana Jose Work Phone: [facility] 04-09-2023 22:23-0400 Body weight 70.8 kg DO Milana Jose Work Phone: [facility] 03-22-2023 22:52-0400 Diastolic blood pressure 69 mm[Hg] DO Milana Jose Work Phone: [facility] 03-22-2023 22:52-0400 Heart rate 71 /min DO Milana Jose Work Phone: [facility] 03-22-2023 22:52-0400 Respiratory rate 18 /min DO Milana Jose Work Phone: [facility] 03-22-2023 22:52-0400 SaO2% (BldA) [Mass fraction] 98 % DO Milana Jose Work Phone: [facility] 03-22-2023 22:52-0400 Systolic blood pressure 111 mm[Hg] DO Milana Jose Work Phone: [facility] 03-22-2023 17:49-0400 Body height 162.56 cm DO Milana Jose Work Phone: [facility] 03-22-2023 17:49-0400 Body mass index (BMI) [Ratio] 26.5 kg/m2 DO Milana Jose Work Phone: [facility] 03-22-2023 17:49-0400 Body temperature 96.4 [degF] DO Milana Jose Work Phone: [facility] 03-22-2023 17:49-0400 Body weight 70.08 kg DO Milana Jose Work Phone: [facility] 02-12-2023 10:24-0400 Body temperature 98.2 [degF] DO Milana Trenter Work Phone: [facility] 02-12-2023 10:24-0400 Diastolic blood pressure 66 mm[Hg] DO Milana Trenter Work Phone: [facility] 02-12-2023 10:24-0400 Heart rate 83 /min DO Milana Trenter Work Phone: [facility] 02-12-2023 10:24-0400 Respiratory rate 16 /min DO Milana Trenter Work Phone: [facility] 02-12-2023 10:24-0400 SaO2% (BldA) [Mass fraction] 98 % DO Milana Trenter Work Phone: [facility] 02-12-2023 10:24-0400 Systolic blood pressure 104 mm[Hg] DO Milana Garcia Work Phone: [facility] 01-21-2023 15:06-0500 Diastolic blood pressure 82 mm[Hg] Dr. Calvin Waldrop Work Phone: [facility] 01-21-2023 15:06-0500 Heart rate 90 /min Dr. Calvin Waldrop Work Phone: [facility] 01-21-2023 15:06-0500 Respiratory rate 14 /min Dr. Calvin Waldrop Work Phone: [facility] 01-21-2023 15:06-0500 SaO2% (BldA) [Mass fraction] 98 % Dr. Calvin Waldrop Work Phone: [facility] 01-21-2023 15:06-0500 Systolic blood pressure 165 mm[Hg] Dr. Calvin Waldrop Work Phone: [facility] 01-21-2023 11:49-0500 Body height 162.[address] Calvin Waldrop Work Phone: [facility] 01-21-2023 11:49-0500 Body mass index (BMI) [Ratio] 27.5 kg/m2 Dr. Calvin Waldrop Work Phone: [facility] 01-21-2023 11:49-0500 Body temperature 97.2 [degF] Dr. Calvin Waldrop Work Phone: [facility] 01-21-2023 11:49-0500 Body weight 72.[address] Calvin Waldrop Work Phone: [facility] 11-19-2022 10:59-0500 Diastolic blood pressure 69 mm[Hg] Dr. Calvin Waldrop Work Phone: [facility] 11-19-2022 10:59-0500 Heart rate 83 /min Dr. Calvin Waldrop Work Phone: [facility] 11-19-2022 10:59-0500 Systolic blood pressure 120 mm[Hg] Dr. Calvin Waldrop Work Phone: [facility] 11-19-2022 10:47-0500 Body temperature 98.5 [degF] Dr. Calvin Waldrop Work Phone: [facility] 11-19-2022 10:47-0500 Respiratory rate 16 /min Dr. Calvin Waldrop Work Phone: [facility] 11-19-2022 10:47-0500 SaO2% (BldA) [Mass fraction] 97 % Dr. Calvin Waldrop Work Phone: [facility] 11-18-2022 13:57-0500 Body height 162.[address] Calvin Waldrop Work Phone: [facility] Work Phone: 11-18-2022 13:57-0500 Body mass index (BMI) [Ratio] 28.5 kg/m2 Dr. Calvin Waldrop Work Phone: [facility] 11-18-2022 13:57-0500 Body weight 75.[address] Calvin Waldrop Work Phone: [facility] 10-31-2022 11:49-0500 Body temperature 98.2 [degF] Dr. Calvin Waldrop Work Phone: [facility] 10-31-2022 11:49-0500 Diastolic blood pressure 88 mm[Hg] Dr. Calvin Waldrop Work Phone: [facility] 10-31-2022 11:49-0500 Heart rate 98 /min Dr. Calvin Waldrop Work Phone: [facility] 10-31-2022 11:49-0500 Respiratory rate 14 /min Dr. Calvin Waldrop Work Phone: [facility] 10-31-2022 11:49-0500 SaO2% (BldA) [Mass fraction] 97 % Dr. Calvin Waldrop Work Phone: [facility] 10-31-2022 11:49-0500 Systolic blood pressure 136 mm[Hg] Dr. Calvin Waldrop Work Phone: [facility] 10-07-2022 14:59-0500 Body temperature 97.8 [degF] Dr. Calvin Waldrop Work Phone: [facility] 10-07-2022 14:59-0500 Diastolic blood pressure 80 mm[Hg] Dr. Calvin Waldrop Work Phone: [facility] 10-07-2022 14:59-0500 Heart rate 107 /min Dr. Calvin Waldrop Work Phone: [facility] 10-07-2022 14:59-0500 Respiratory rate 16 /min Dr. Calvin Waldrop Work Phone: [facility] 10-07-2022 14:59-0500 SaO2% (BldA) [Mass fraction] 98 % Dr. Calvin Waldrop Work Phone: [facility] 10-07-2022 14:59-0500 Systolic blood pressure 154 mm[Hg] Dr. Calvin Waldrop Work Phone: [facility] 09-05-2022 23:51-0400 Diastolic blood pressure 68 mm[Hg] Calvin Waldrop [facility] Work Phone: 09-05-2022 23:51-0400 Heart rate 115 /min [facility] Work Phone: 09-05-2022 23:51-0400 Respiratory rate 16 /min [facility] Work Phone: 09-05-2022 23:51-0400 SaO2% (BldA) [Mass fraction] 96 % [place] Work Phone: 09-05-2022 23:51-0400 Systolic blood pressure 129 mm[Hg] [place] Work Phone: 09-05-2022 21:11-0400 Body height 162.56 cm [facility] Work Phone: 09-05-2022 21:11-0400 Body mass index (BMI) [Ratio] 27.5 kg/m2 [place] Work Phone: 09-05-2022 21:11-0400 Body temperature 98 [degF] [facility] Work Phone: 09-05-2022 21:11-0400 Body weight 72.7 kg [facility] Work Phone: 07-21-2022 18:58-0400 Body temperature 99 [degF] Samantha Deleon TIRE TECHNICIAN.RUBY SOFTWARE DEVELOPER Work Phone: [facility] 07-21-2022 18:58-0400 Body weight 72.39 kg Samantha Deleon TIRE TECHNICIAN.RUBY SOFTWARE DEVELOPER Work Phone: [facility] 07-21-2022 18:58-0400 Diastolic blood pressure 84 mm[Hg] Samantha Deleon TIRE TECHNICIAN.RUBY SOFTWARE DEVELOPER Work Phone: [facility] 07-21-2022 18:58-0400 Heart rate 83 /min Samantha Deleon TIRE TECHNICIAN.RUBY SOFTWARE DEVELOPER Work Phone: [facility] 07-21-2022 18:58-0400 Respiratory rate 16 /min Samantha Deleon TIRE TECHNICIAN.RUBY SOFTWARE DEVELOPER Work Phone: [facility] 07-21-2022 18:58-0400 SaO2% (BldA) [Mass fraction] 98 % Samantha Deleon TIRE TECHNICIAN.RUBY SOFTWARE DEVELOPER Work Phone: [facility] 07-21-2022 18:58-0400 Systolic blood pressure 138 mm[Hg] Samantha Deleon TIRE TECHNICIAN.RUBY SOFTWARE DEVELOPER Work Phone: [facility] 05-31-2022 12:28-0400 Body mass index (BMI) [Ratio] 26.3 kg/m2 [place] Work Phone: 05-31-2022 12:28-0400 Body temperature 97.3 [degF] [facility] Work Phone: 05-31-2022 12:28-0400 Body weight 69.51 kg [facility] Work Phone: 05-31-2022 12:28-0400 Diastolic blood pressure 76 mm[Hg] [place] Work Phone: 05-31-2022 12:28-0400 Heart rate 69 /min [facility] Work Phone: 05-31-2022 12:28-0400 Respiratory rate 18 /min [facility] Work Phone: 05-31-2022 12:28-0400 SaO2% (BldA) [Mass fraction] 99 % [place] Work Phone: 05-31-2022 12:28-0400 Systolic blood pressure 116 mm[Hg] [place] Work Phone: 02-22-2022 15:02-0400 Diastolic blood pressure 84 mm[Hg] [facility] Work Phone: 02-22-2022 15:02-0400 Heart rate 71 /min [facility] Work Phone: 02-22-2022 15:02-0400 Respiratory rate 14 /min [facility] Work Phone: 02-22-2022 15:02-0400 SaO2% (BldA) [Mass fraction] 96 % [facility] Work Phone: 02-22-2022 15:02-0400 Systolic blood pressure 120 mm[Hg] [facility] Work Phone: 02-22-2022 12:30-0400 Body temperature 96.2 [degF] [facility] Work Phone: 02-22-2022 12:12-0400 Body height 162.56 cm [facility] Work Phone: 02-22-2022 12:12-0400 Body mass index (BMI) [Ratio] 26.3 kg/m2 [facility] Work Phone: 02-22-2022 12:12-0400 Body weight 69.5 kg [facility] Work Phone: 06-10-2021 22:58-0400 Diastolic blood pressure 62 mm[Hg] No Pcp Required [facility] 06-10-2021 22:58-0400 Heart rate 88 /min No Pcp Required [facility] 06-10-2021 22:58-0400 Respiratory rate 16 /min No Pcp Required [facility] 06-10-2021 22:58-0400 SaO2% (BldA) [Mass fraction] 99 % No Pcp Required [facility] 06-10-2021 22:58-0400 Systolic blood pressure 105 mm[Hg] No Pcp Required [facility] 06-10-2021 22:27-0400 Body height 162.5 cm No Pcp Required [facility] 06-10-2021 22:27-0400 Body temperature 96.98 [degF] No Pcp Required [facility] 06-10-2021 22:27-0400 Body weight 72.7 kg No Pcp Required [facility] Encounters Encounter Date Encounter Type Care [...] Non-patient / Non-visit Dr. Mao Becker DO [facility] Work Phone: Start: 05-28-2025 Dr. Mao Becker DO [facility] Work Phone: Start: 05-27-2025 Non-patient / Non-visit Dr. Mao Becker DO [facility] Work Phone: Start: 05-27-2025 Dr. Mao Becker [facility] Work Phone: Start: 05-26-2025 Non-patient / Non-visit Dr. Mao Becker [facility] Work Phone: Start: 05-26-2025 Dr. Mao Becker [facility] Work Phone: Start: 05-25-2025 Non-patient / Non-visit Dr. Myra Null MD [facility] Work Phone: Start: 05-25-2025 ambulatory Myra Null Facility :[facility] Start: 05-25-2025 End: 05-28-2025 Evaluation and management of inpatient Dr. Myra Null MD -[facility] Work Phone: Start: 05-25-2025 End: 05-28-2025 Dr. Mao Becker DO -[facility] Work Phone: Start: 05-06-2025 Non-patient / Non-visit Dr. Mao Becker [facility] Work Phone: Start: 05-06-2025 Dr. Mao Becker [facility] Work Phone: Start: 05-05-2025 Non-patient / Non-visit Dr. Mao Becker [facility] Work Phone: Start: 05-05-2025 Dr. Mao Becker [facility] Work Phone: Start: 05-04-2025 Non-patient / Non-visit Dr. Canelo Myers MD [facility] Work Phone: Start: 05-04-2025 Dr. Canelo Myers MD [facility] Work Phone: Start: 05-03-2025 Non-patient / Non-visit Dr. Canelo Myers MD [facility] Work Phone: Start: 05-03-2025 Dr. Canelo Myers MD [facility] Work Phone: Start: 05-02-2025 Non-patient / Non-visit Dr. Canelo Myers MD [facility] Work Phone: Start: 05-02-2025 Dr. Canelo Myers MD [facility] Work Phone: Start: 05-01-2025 Non-patient / Non-visit Dr. Canelo Myers MD [facility] Work Phone: Start: 05-01-[address]25 Dr. Canelo Myers [facility] Work Phone: Start: 04-30-2025 Non-patient / Non-visit Dr. Canelo Myers MD [facility] Work Phone: Start: 04-30-2025 Dr. Canelo Myers MD [facility] Work Phone: Start: 04-29-2025 Non-patient / Non-visit Dr. Canelo Myers MD [facility] Work Phone: Start: 04-29-2025 Dr. Canelo Myers MD [facility] Work Phone: Start: 04-28-2025 Non-patient / Non-visit Dr. Canelo Myers MD [facility] Work Phone: Start: 04-28-2025 Dr. Canelo Myers MD [facility] Work Phone: Start: 04-27-2025 Non-patient / Non-visit Dr. Canelo Myers MD [facility] Work Phone: Start: 04-27-2025 Dr. Canelo Myers MD [facility] Work Phone: Start: 04-26-2025 Non-patient / Non-visit Dr. Julius Moncada MD [facility] Work Phone: Start: 04-26-2025 ambulatory Canelo Myers Facility:[facility] Start: 04-26-2025 End: 05-06-2025 Evaluation and management of inpatient Dr. Julius Moncada MD -[facility] Work Phone: Start: 04-26-2025 [...] -Emergency Department Work Phone: Start: 01-03-2025 ambulatory [facility] Facility:[facility] Start: 11-12-2024 End: 11-12-2024 Emergency department patient visit [facility] Facility:[facility] Start: 10-09-2024 End: 10-09-2024 ambulatory [facility] Facility:[facility] Start: 09-25-2024 End: 09-25-2024 ambulatory [facility] Facility:[facility] Start: 08-28-2024 End: 08-28-2024 ambulatory [facility] Facility:[facility] Start: 04-22-2024 End: 04-22-2024 ambulatory [facility] Facility:[facility] Start: 04-22-2024 End: 04-22-2024 Patient encounter procedure Aretha Schofield APRN.CNP Work Phone: [facility] Comment on above: Sinus congestion (Pr imary Dx); Wheezing; Nausea Start: 03-22-2024 End: 03-22-2024 Patient encounter procedure DO Milana Garcia Work Phone: [facility] Work Phone: Start: 03-21-2024 End: 03-21-2024 ambulatory DO Milana Garcia Work Phone: [facility] Work Phone: Start: 03-21-2024 End: 03-21-2024 Patient encounter procedure DO Milana Garcia Work Phone: [facility] Start: 01-24-2024 End: 01-24-2024 Emergency department patient visit DO Milana Garcia [facility]: Start: 10-19-2023 End: 10-19-2023 Patient encounter procedure DO Milana Garcia Work Phone: [facility] Work Phone: Start: 10-15-2023 End: 10-15-2023 ambulatory DO Milana Garcia Work Phone: [facility] Work Phone: Start: 10-15-2023 End: 10-15-2023 Patient encounter procedure DO Milana Garcia Work Phone: [facility] Work Phone: Start: 10-10-2023 End: 10-10-2023 Emergency department patient visit DO Milana Garcia [facility] Work [facility]: Start: 09-27-2023 End: 09-27-2023 Patient encounter procedure DO Milana Garcia Work Phone: [facility] Work Phone: Start: 09-15-2023 End: 09-15-2023 Patient encounter procedure DO Milana Garcia Work Phone: [facility] Work Phone: Start: 08-25-2023 End: 08-25-2023 ambulatory DO Milana Garcia Work Phone: [facility] Work Phone: Start: 08-25-2023 End: 08-25-2023 Patient encounter procedure DO Milana Garcia Work Phone: [facility] Work Phone: Start: 08-25-2023 End: 08-25-2023 Patient encounter procedure DO Milana Garcia Work Phone: [facility] Work Phone: Start: 08-23-2023 End: 08-23-2023 Emergency department patient visit DO Milana Garcia [facility] Work [facility]: Start: 07-29-2023 End: 07-29-2023 Emergency department patient visit DO Milana Garcia [facility] Work [facility]: Start: 07-19-2023 End: 07-19-2023 ambulatory DO Milana Garcia Work Phone: [facility] Work Phone: Start: 07-19-2023 End: 07-19-2023 Patient encounter procedure DO Milana Garcia Work Phone: [facility] Work Phone: Start: 07-01-2023 End: 07-01-2023 Patient encounter procedure DO Milana Garcia Work Phone: [facility] Work Phone: Start: 05-25-2023 Registered Referred DO Milana Garcia [facility] Work [facility]: Start: 05-24-2023 End: 05-25-2023 Emergency department patient visit DO Mliana Garcia Work Phone: [facility] Start: 05-20-2023 End: 05-20-2023 Patient encounter procedure DO Milana Garcia Work Phone: [facility] Start: 05-19-2023 End: 05-19-2023 ambulatory DO Milana Garcia Work Phone: [facility] Work Phone: Start: 05-19-2023 End: 05-19-2023 Patient encounter procedure DO Milana Garcia Work Phone: [facility] Start: 05-04-2023 End: 05-05-2023 Emergency department patient visit DO Milana Garcia [facility] Start: 04-11-2023 Non-patient / Non-visit DO Milana Christensennger Work Phone: [facility] Start: 04-10-2023 End: 04-10-2023 Non-patient / Non-visit DO Milana Garcia Work Phone: [facility] Start: 04-10-2023 End: 04-11-2023 Evaluation and management of inpatient DO Milana Garcia Work Phone: [facility] Start: 04-09-2023 End: 04-09-2023 Patient encounter procedure DO Milana Garcia Work Phone: [facility] Start: 03-22-2023 End: 03-22-2023 Emergency department patient visit DO Milana Garcia Work Phone: [facility] Start: 02-12-2023 End: 02-12-2023 Patient encounter procedure DO Milana Christensennger Work Phone: [facility] Start: 01-21-2023 End: 01-21-2023 Emergency department patient visit Dr. Calvin Waldrop Work Phone: [facility] Start: 11-19-2022 Non-patient / Non-visit Dr. Calvin Waldrop Work Phone: [facility] Start: 11-19-2022 Non-patient / Non-visit Dr. Calvin Waldrop Work Phone: [facility] Start: 11-18-2022 Non-patient / Non-visit Dr. Calvin Waldrop Work Phone: [facility] Start: 11-18-2022 Non-patient / Non-visit Dr. Calvin Waldrop Work Phone: [facility] Start: 11-18-2022 End: 11-19-2022 Evaluation and management of inpatient Dr. Calvin Waldrop Work Phone: [facility] Start: 10-31-2022 End: 10-31-[address] Calvin Waldrop Work Phone: [facility] Start: 10-07-2022 End: 10-07-[address] Calvin Waldrop Work Phone: [facility] Start: 09-05-2022 End: 09-06-2022 Emergency department [facility] Start: 07-21-2022 End: 07-21-2022 Subsequent hospital visit by physician [facility] Work Phone: Radiology Comment on above: Hip pain, acute, lef t [M25.552] Start: 07-21-2022 End: 07-21-2022 Patient encounter procedure Samantha Deleon APRN.CNP Work Phone: [facility] Comment on above: Hip pain, acute, lef t (Primary Dx) Start: 05-31-2022 End: 05-31-2022 Patient encounter procedure Calvin Waldrop [facility] Start: 02-22-2022 End: 02-22-2022 [facility] [facility] Start: 06-10-2021 End: 06-10-2021 Emergency department patient visit Noe Engel [facility] Emergency 07 Procedures Date Procedure Procedure [...] unilateral with pelvis 2-3 views Samantha Deleon TIRE TECHNICIAN.[employer] Work Phone: Start: 02-22-2022 Plain chest X-ray Start: 06-21-2020 Mammography Samantha Ri ggs TIRE TECHNICIAN.[employer] Work Phone: Start: 09-11-2015 Colonoscopy Samantha Ri ggs TIRE TECHNICIAN.[employer] Work Phone: Bacteria identified in Blood by Culture DO Milana Garcia Work Phone: Plan of Treatment Date Care Activity Detail Author Start: 03-03-2034 Urine microalbumin profile DTaP,Tdap,Td Vaccine (3 - Td or Tdap) [facility] Start: 08-15-2025 Patient discharge [facility] Start: 08-15-2025 Inhalation therapy procedure [facility] Start: 08-14-2025 [facility] Start: 08-13-2025 End: 08-14-2025 [facility] Start: 08-13-2025 Application of intermittent pneumatic compression device [facility] Start: 08-13-2025 Consultation [facility] Start: 08-13-2025 Care regimes management [facility] Start: 08-13-2025 Notification of physician [facility] Start: 08-13-2025 Speech therapy assessment [facility] Start: 08-12-2025 Following clinical pathway protocol [facility] Start: 08-12-2025 Assessment of risk of venous thromboembolism [facility] Start: 08-12-2025 Care regimes management [facility] Start: 08-12-2025 Insertion of catheter into peripheral vein [facility] Start: 08-12-2025 Lab findings surveillance [facility] Start: 08-12-2025 Measuring intake and output [facility] Start: 08-12-2025 Nil by mouth [facility] Start: 08-12-2025 Notification of physician [facility] Start: 08-12-2025 Oxygen therapy [facility] Start: 08-12-2025 Providing care according to standard [facility] Start: 08-12-2025 Vital signs measurements [facility] Start: 08-12-2025 Streptococcus pyogenes rRNA [Presence] in Throat by Probe [facility] Start: 08-12-2025 Serum inorganic phosphate measurement [facility] Start: 08-12-2025 Urinalysis complete panel - Urine [facility] Start: 08-12-2025 End: 08-12-2025 [facility] Start: 08-12-2025 Verification routine [facility] Start: 08-12-2025 Admission procedure [facility] Start: 08-12-2025 Hospital admission, emergency, from emergency room, medical nature [facility] Start: 08-12-2025 Patient referral to dietitian [facility] Start: 07-20-2025 Patient discharge [facility] Start: 07-18-2025 [facility] Start: 07-17-2025 End: 07-18-2025 [facility] Start: 07-17-2025 Following clinical pathway protocol [facility] Start: 07-17-2025 Ambulation without limitation [facility] Start: 07-17-2025 Assessment of risk of venous thromboembolism [facility] Start: 07-17-2025 Care regimes management [facility] Start: 07-17-2025 Insertion of catheter into peripheral vein [facility] Start: 07-17-2025 Measuring intake and output [facility] Start: 07-17-2025 Notification of physician [facility] Start: 07-17-2025 Oxygen therapy [facility] Start: 07-17-2025 Providing care according to standard [facility] Start: 07-17-2025 Vital signs measurements [facility] Start: 07-17-2025 Prothrombin time [facility] Start: 07-17-2025 Verification routine [facility] Start: 07-17-2025 Hospital admission, emergency, from emergency room, medical nature [facility] Start: 07-17-2025 Admission procedure [facility] Start: 07-17-2025 [facility] Start: 07-17-2025 [facility] Start: 05-28-2025 Patient discharge [facility] Start: 05-26-2025 [facility] Start: 05-25-2025 Assessment of risk of venous thromboembolism [facility] Start: 05-25-2025 Care regimes management [facility] Start: 05-25-2025 Inhalation therapy procedure [facility] Start: 05-25-2025 Introduction of urinary catheter [facility] Start: 05-25-2025 Notification of physician [facility] Start: 05-25-2025 Oxygen therapy [facility] Start: 05-25-2025 Provision of activity privileges [facility] Start: 05-25-2025 Referral to service [facility] Start: 05-25-2025 Vital signs measurements [facility] Start: 05-25-2025 End: 05-25-2025 [facility] Start: 05-25-2025 Following clinical pathway protocol [facility] Start: 05-25-2025 Hospital admission, emergency, from emergency room, medical nature [facility] Start: 05-25-2025 Verification routine [facility] Start: 05-25-2025 Admission procedure [facility] Start: 05-06-2025 Patient discharge [facility] Start: 05-05-2025 Inhalation therapy procedure [facility] Start: 05-01-2025 Referral for physical therapy [facility] Start: 05-01-2025 Referral to occupational therapist [facility] Start: 05-01-2025 Referral to service [facility] Start: 04-29-2025 Oxygen therapy [facility] Start: 04-28-2025 Assessment of risk of venous thromboembolism [facility] Start: 04-28-2025 Notification of physician [facility] Start: 04-28-2025 Vital signs measurements [facility] Start: 04-27-2025 [facility] Start: 04-27-2025 Hepatic function panel [facility] Start: 04-27-2025 Prothrombin time [facility] Start: 04-27-2025 Serum inorganic phosphate measurement [facility] Start: 04-27-2025 Thyroid stimulating hormone measurement [facility] Start: 04-26-2025 Following clinical pathway protocol [facility] Start: 04-26-2025 End: 04-26-2025 [facility] Start: 04-26-2025 Care regimes management [facility] Start: 04-26-2025 Notification of physician [facility] Start: 04-26-2025 Admission procedure [facility] Start: 04-26-2025 Ambulation without limitation [facility] Start: 04-26-2025 Assessment of risk of venous thromboembolism [facility] Start: 04-26-2025 Insertion of catheter into peripheral vein [facility] Start: 04-26-2025 Providing care according to standard [facility] Start: 04-26-2025 Verification routine [facility] Start: 04-26-2025 Hospital admission, emergency, from emergency room, medical nature [facility] Start: 04-26-2025 Patient referral to dietitian [facility] Start: 04-12-2025 [facility] Start: 04-11-2025 [facility] Start: 04-05-2025 [facility] Start: 04-04-2025 [facility] Start: 04-04-2025 End: 04-04-2025 [facility] Start: 07-30-2024 Covid-19 Vaccine () Covid-19 Vaccine () [facility] Start: 07-30-2024 Influenza vaccination [facility] Start: 06-07-2024 Hepatitis B Vaccine (3 of 3 - Hep B Twinrix 3-dose series) Hepatitis B Vaccine (3 of 3 - Hep B Twinrix 3-dose series) [facility] Start: 03-22-2024 Patient referral [facility] Work Phone: Start: 01-24-2024 [facility] Start: 01-24-2024 End: 01-24-2024 [facility] Start: 10-26-2023 HPV TESTING HPV TESTING [facility] Start: 10-26-2023 PAP TESTING PAP TESTING [facility] Start: 10-26-2023 Screening for malignant neoplasm of cervix [facility] Start: 10-15-2023 Elastase, pancreatic (el-1), fecal; quantitative [facility] Start: 10-10-2023 [facility] Start: 10-10-2023 [facility] Start: 09-26-2023 Urine microalbumin profile DTAP,TDAP,TD (2 - Td or Tdap) [facility] Start: 07-29-2023 [facility] Start: 05-24-2023 [facility] Start: 05-04-2023 [facility] Start: 04-11-2023 Patient discharge [facility] Start: 04-10-2023 Following clinical pathway protocol [facility] Start: 04-10-2023 Ambulation without limitation [facility] Start: 04-10-2023 Assessment of risk of venous thromboembolism [facility] Start: 04-10-2023 Care regimes management [facility] Start: 04-10-2023 Inhalation therapy procedure [facility] Start: 04-10-2023 Insertion of catheter into peripheral vein [facility] Start: 04-10-2023 Measuring intake and output [facility] Start: 04-10-2023 Notification of physician [facility] Start: 04-10-2023 Providing care according to standard [facility] Start: 04-10-2023 Tobacco use cessation education [facility] Start: 04-10-2023 [facility] Start: 04-10-2023 Electrocardiographic procedure [facility] Start: 04-10-2023 Verification routine [facility] Start: 04-10-2023 Admission procedure [facility] Start: 04-10-2023 End: 04-10-2023 Blood culture [facility] Start: 01-21-2023 [facility] Start: 11-19-2022 Patient referral [facility] Work Phone: Start: 11-19-2022 Patient discharge [facility] Start: 11-19-2022 Notification of physician [facility] Start: 11-19-2022 Patient education [facility] Start: 11-19-2022 Pulse taking [facility] Start: 11-19-2022 Taking patient vital signs [facility] Start: 11-19-2022 Wound care [facility] Start: 11-19-2022 [facility] Start: 11-19-2022 Catheterization of left heart [facility] Work Phone: Start: 11-18-2022 Assessment of risk of venous thromboembolism [facility] Start: 11-18-2022 Care regimes management [facility] Start: 11-18-2022 Insertion of catheter into peripheral vein [facility] Start: 11-18-2022 Measuring intake and output [facility] Start: 11-18-2022 Providing care according to standard [facility] Start: 11-18-2022 Referral to chief librarian extension department [facility] Start: 11-18-2022 [facility] Start: 11-18-2022 Following clinical pathway protocol [facility] Start: 11-18-2022 Catheterization of vein [facility] Start: 11-18-2022 Medication not administered [facility] Start: 11-18-2022 Notification of physician [facility] Start: 11-18-2022 Preoperative care [facility] Start: 11-18-2022 [facility] Start: 11-18-2022 Admission procedure [facility] Start: 10-07-2022 Patient referral [facility] Work Phone: Start: 07-30-2022 Influenza vaccination INFLUENZA (#1) [facility] Start: 2022 COLOGUARD (FIT-DNA) COLOGUARD (FIT-DNA) [facility] Start: 2022 Colonoscopy COLONOSCOPY [facility] Start: 2022 COLORECTAL CANCER SCREENING COLORECTAL CANCER SCREENING [facility] Start: [address] COLONOGRAPHY [facility] Start: 2022 FECAL OCCULT BLOOD FECAL OCCULT BLOOD [facility] Start: 2022 Screening for malignant neoplasm of colon [facility] Start: 2022 SIGMOIDOSCOPY SIGMOIDOSCOPY [facility] Start: 07-15-2021 ANNUAL PCP TEAM CHRONIC DISEASE VISIT ANNUAL PCP TEAM CHRONIC DISEASE VISIT [facility] Start: 07-03-2021 Screening for malignant neoplasm of breast Mammogram Screening [facility] Start: 06-21-2021 Hepatitis B screening URINE ALBUMIN:CREATININE RATIO [facility] Start: 06-21-2021 Hepatitis B surface antibody level LDL CHOLESTEROL [facility] Start: 06-21-2021 Mammography MAMMOGRAM [facility] Start: 05-19-2021 COVID-19 VACCINE (3 - Booster for Pfizer series) COVID-19 VACCINE (3 - Booster for Pfizer series) [facility] Start: 11-19-2020 Hemoglobin A1c measurement HbA1C [facility] Start: 11-19-2020 Hemoglobin A1c/Hemoglobin.total in Blood HBA1C [facility] Start: 07-19-2020 3 comp foot exam [facility] Start: 07-19-2020 Diabetic foot examination Diabetic Foot Exam [place] Start: 12-26-2019 Glaucoma screening Dilated Retinal Exam [facility] Start: 12-26-2019 Hepatitis C antibody, confirmatory test DILATED RETINAL EXAM [facility] Start: 10-20-2014 PNEUMOCOCCAL (2 - PCV) PNEUMOCOCCAL (2 - PCV) [facility] Start: 1995 Anxiety Screening Anxiety Screening [facility] Start: 1995 BP CONTROLLED (<130/80) BP CONTROLLED (<130/80) [facility] Start: 1995 HEPATITIS C SCREENING HEPATITIS C SCREENING [facility] Start: 1995 Hepatitis C screening Hepatitis C Screening [facility] Start: 1995 HIV SCREENING HIV SCREENING [facility] Start: 1995 HIV screening HIV Screening [facility] Start: 1977 HEPATITIS B (1 of 3 - 3-dose series) HEPATITIS B (1 of 3 - 3-dose series) [facility] Alanine aminotransfe rase [Enzymatic activity/volume] in Serum or Plasma [facility] Albumin [Mass/volume ] in Serum or Plasma [facility] Alkaline phosphatase [Enzymatic activity/volume] in Serum or Plasma [facility] Anion gap in Serum or Plasma [facility] Bacteria identified in Blood by Culture Blood Culture [facility] Bilirubin, total measurement [facility] Bilirubin.direct [Ma ss/volume] in Serum or Plasma [facility] BUN/Creatinine ratio [facility] Calcium [Mass/volume ] in Serum or Plasma [facility] Carbon dioxide, tota l [Moles/volume] in Central venous blood [facility] Cardiac event recording [facility] Creatinine [Mass/vol ume] in Serum or Plasma [facility] Erythrocyte mean cor puscular volume determination [facility] Fat [Mass/mass] in Stool [facility] Fat.neutral [Presenc e] in Stool [facility] Glucose [Mass/volume ] in Serum or Plasma [facility] Hematocrit [Volume F raction] of Blood [facility] Hemoglobin [Mass/vol ume] in Blood [facility] Hemoglobin A1c/Hemoglobin.total in Blood [facility] INR in Blood by Coag ulation assay [facility] INR in Blood by Coag ulation assay [facility] Lactic acid measurement [facility] Leukocytes [#/volume] in Blood [facility] Magnesium measurement [facility] Mean corpuscular hem oglobin concentration determination [facility] Mean corpuscular hem oglobin determination [facility] Measurement of renal function [facility] Neutrophil count [facility] Neutrophil percent differential count [facility] Patient Education [facility] Work Phone: Patient referral [facility] Work Phone: Platelets [#/volume] in Blood [facility] Potassium measurement [facility] Red blood cell count [facility] Red cell distributio n width determination [facility] Serum chloride measurement [facility] Sodium measurement [facility] Total protein measurement [facility] Troponin T.cardiac [Mass/volume] in Serum or Plasma by High sensitivity method [facility] Urea nitrogen [Mass/ volume] in Serum or Plasma [facility] Immunizations Immunization Date Immunization Notes Care Provider Juany griffith 10-16-2022 influenza virus vacc ine, unspecified formulation Aretha Schofield TIRE TECHNICIAN.[employer] DEVEL[employer] Work Phone: [facility] 09-16-2018 influenza, injectabl e, quadrivalent, contains preservative Samantha Deleon TIRE TECHNICIAN.[facility] Work Phone: [facility] Work Phone: 11-19-2015 influenza, injectabl e, quadrivalent, contains preservative Samantha Deleon TIRE TECHNICIAN.[facility] Work Phone: [facility] 10-02-2014 influenza, seasonal, injectable Samantha Deleon TIRE TECHNICIAN.[facility] Work Phone: [facility] Work Phone: 09-27-2014 influenza, injectabl e, quadrivalent, preservative free DO Milana Garcia Work Phone: [facility] 09-27-2014 influenza, seasonal, injectable [facility] 10-20-2013 pneumococcal polysaccharide vaccine, 23 valent Samantha Deleon TIRE TECHNICIAN.[facility] Work Phone: [facility] Work Phone: 09-27-2013 Pneumococcal Vaccine [facility] Work Phone: 09-27-2013 pneumococcal vaccine , unspecified formulation Dr. 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 [id number] Self-pay [id number] Unknown [id number] Unknown [id number] 2.16.840.1.720445.3.579.2.4 62 Unknown [id number] 2.16.840.1.578577.3.579.2.4 62 Unknown [id number] 2.16.840.1.095965.3.579.2.4 62 Unknown [id number] 2.16.840.1.941810.3.579.2.4 62 Unknown [id number] 2.16.840.1.424125.3.579.2.4 62 Unknown [id number] 2.16.840.1.460309.3.579.2.4 62 Unknown [id number] 2.16.840.1.170314.3.579.2.4 62 Unknown [id number] 2.16.840.1.819060.3.579.2.4 62 Unknown [id number] 2.16.840.1.728204.3.579.2.4 62 Unknown [id number] 2.16.840.1.197960.3.579.2.4 62 Unknown [id number] 2.16.840.1.070199.3.579.2.4 62 Unknown [id number] 2.16.840.1.985313.3.579.2.4 62 Unknown [id number] 2.16.840.1.245363.3.579.2.4 62 Unknown [id number] 2.16.840.1.618077.3.579.2.4 62 Unknown [id number] 2.16.840.1.681728.3.579.2.4 62 Unknown [id number] 2.16.840.1.931471.3.579.2.4 62 Unknown [id number] 2.16.840.1.276099.3.579.2.4 62 Unknown [id number] 2.16.840.1.234028.3.579.2.4 62 Unknown [id number] 2.16.840.1.082095.3.579.2.4 62 Unknown [id number] 2.16.840.1.795967.3.579.2.4 62 Unknown [id number] 2.16.840.1.037665.3.579.2.4 62 Unknown [id number] 2.16.840.1.740323.3.579.2.4 62 Unknown [id number] 2.16.840.1.362428.3.579.2.4 62 Unknown [id number] 2.16.840.1.833053.3.579.2.4 62 Unknown [id number] 2.16.840.1.021001.3.579.2.4 62 Unknown [id number] 2.16.840.1.708250.3.579.2.4 62 Unknown [id number] 2.16.840.1.413671.3.579.2.4 62 Unknown [id number] 2.16.840.1.607264.3.579.2.4 62 Unknown [id number] 2.16.840.1.988059.3.579.2.4 62 Unknown [id number] 2.16.840.1.971128.3.579.2.4 62 Unknown [id number] 2.16.840.1.192015.3.579.2.4 62 Unknown [id number] 2.16.840.1.697506.3.579.2.4 62 Unknown [id number] 2.16.840.1.891259.3.579.2.4 62 Unknown [id number] 2.16.840.1.005910.3.579.2.4 62 Unknown [id number] 2.16.840.1.671265.3.579.2.4 62 Social History Date Type Detail Facility [facility] Start: 02-22-2022 End: 01-24-2024 Tobacco smoking consumption unknown [facility] Start: 04-14-2021 Sober [facility] Start: 04-14-2021 None [facility] Start: 04-14-2021 Cigarettes [facility] Start: 1975 Sex Assigned At Female C [facility] Start: 07-21-2022 [facility] Start: 11-29-1996 End: 07-11-2020 History of tobacco use Current smoker [facility] Start: 11-29-1996 End: 07-11-2020 History of tobacco use Cigarette Smoker [facility] Start: 11-04-2020 End: 07-21-2022 Cigarettes smoked current (pack per day) - Reported 0.5 [facility] Start: 07-21-2022 Tobacco use and exposure Smokeless tobacco non-user [facility] Start: 07-21-2022 End: 04-22-2024 Alcohol intake Current drinker of alcohol (finding) [facility] Start: 06-05-2020 End: 08-01-2020 History SDOH Alcohol Frequency 3 [facility] Start: 06-05-2020 End: 08-01-2020 History SDOH Alcohol Std Drinks 1 [facility] Start: 06-05-2020 End: 08-01-2020 History SDOH Alcohol Binge 2 [facility] Start: 09-16-2018 History SDOH 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 [facility] Start: 01-15-2020 History SDOH Social Connections Living 8 [facility] Start: 06-05-2020 History SDOH Physica l Activity DPW 0 [facility] Start: 07-01-2020 History SDOH Financial 5 [facility] Start: 01-14-2020 Education 12 [facility] Start: 07-21-2022 Tobacco Comment stopped 3 weeks ago [facility] Start: 09-26-2014 With Family [facility] Start: 06-05-2020 End: 11-04-2020 Social connection and isolation panel [facility] Frequency of Communication with Friends and Family Not on file [facility] Do you belong to any clubs or organizations such as lutheran groups, unions, fraternal or athletic groups, or school groups? No [facility] How often to you hav e a drink containing alcohol? 2-4 times a month [facility] How many standard drinks containing alcohol do you have on a typical day? 1 or 2 [facility] How often do you hav e 6 or more drinks on 1 occasion? Less than monthly [facility] Do you feel stress - tense, restless, nervous, or anxious, or unable to sleep at night because your mind is troubled all the time - these days [OSQ] To some extent [facility] (I/We) worried mary er (my/our) food would run out before (I/we) got money to buy more. Never true [facility] Start: 07-15-2020 Gender identity Identifies as female gender (finding) [facility] Start: 07-15-2020 Sexual orientation Heterosexual (chucky acevedo) [facility] Start: 04-04-2025 Tobacco smoking stat us CAIS Current some day smoker [facility] Start: 04-11-2025 End: 08-13-2025 Tobacco smoking status NHIS Current Light tobacco smoker [facility] NEGATED: Highlighted row [facility] NEGATED: Highlighted row Not [facility] Goals Date Patient Goal Desired Activity /State Functional Status Date Assessment Result Facility 08-15-2025 Functional status Ambulates [facility] Work Phone: 07-20-2025 Functional status Up ad seble [facility] Work Phone: 05-28-2025 Functional status Ambulates;Up ad seble [facility] Work Phone: 05-27-2025 Functional status None [facility] Work Phone: 05-06-2025 Functional status Bathroom Privilege [facility] Work Phone: 04-11-2023 Functional status Activity Ability Indepe ndent [facility] Work Phone: 04-11-2023 Functional status Ambulates;Bathroom Priv ilege [facility] Work Phone: 11-19-2022 Functional status Ambulates [facility] Work Phone: 11-18-2022 Functional status Assistive Devices None [facility] Work Phone: Mental Status Date Assessment Result Facility 08-15-2025 Cognitive function Appropriate [facility] Work Phone: 08-15-2025 Cognitive function Voice/Name [facility] Work Phone: 08-12-2025 Cognitive function Voice/Name [facility] Work Phone: 07-19-2025 Cognitive function Voice/Name [facility] Work Phone: 05-28-2025 Cognitive function Voice/Name [facility] Work Phone: 05-06-2025 Cognitive function Voice/Name [facility] Work Phone: 04-11-2025 Cognitive function Voice/Name [facility] Work Phone: 01-24-2024 Cognitive function Voice/Name [facility] Work Phone: 10-10-2023 Cognitive function Level Of Cons ciousness Awake;Alert;Appropriate [facility] Work Phone: 07-29-2023 Cognitive function Level Of Cons ciousness Awake;Alert;Appropriate;Follow s Commands [facility] Work Phone: 05-24-2023 Cognitive function Voice/Name [facility] Work Phone: 05-04-2023 Cognitive function Level Of Cons ciousness Awake;Alert;Appropriate [facility] Work Phone: 04-11-2023 Cognitive function Voice/Name [facility] Work Phone: 04-09-2023 Cognitive function Level Of Cons ciousness Awake;Alert;Appropriate;Follow s Commands [facility] Work Phone: 03-22-2023 Cognitive function Level Of Cons ciousness Awake;Alert;Appropriate;Follow s Commands [facility] Work Phone: 01-21-2023 Cognitive function Voice/Name [facility] Work Phone: 11-19-2022 Cognitive function Voice/Name [facility] Work Phone: 09-05-2022 Cognitive function Level Of Cons ciousness Awake;Alert;Appropriate [facility] Work Phone: 02-22-2022 Cognitive function Level Of Cons ciousness Awake;Alert;Appropriate;Follow s Commands;Responds to vocal stimuli [facility] Work Phone: Clinical Notes 07-17-2019 to 08-15-2025 Note Date & Type Note Facility 08-15-2025 Discharge summary Note Date/Time August 15, 2025 3:02pm [facility] Medical Records Department [address] [place], [place] [address]alex[place] [address] Discharge Summary 08/15/25 1455 MR#: [id number] Acct: [id number] Name: JOSEPH RINCON Rep #:[id number] : 1975 50 From: Zev Zhang PCP: [...] closed x 2. Repeat bicarb is 26.5. Wofmikvz111. 08/15: Acid-base disorder resolved. 3. Acute on [...] is evidenced by: 10% unintentional weight loss. Wrapping Machine Tender consult DVT prophylaxis: Patient has intermittent thrombocytopenia [...] Freq: Status: Active Protocol: Document 08/13/25 09:43 [facility] (Rec: 08/13/25 09:43 SLA [id number]) Nutrition Malnutrition Evidence of Yes Malnutrition Exists [...] Self Care Charges/Coding Visit Charges Inpatient E&M: 03832 Disch Hosp >30min 08/15/25 1502 <Electronically signed by Zev Tucker MD> Cosigner Signature (if applicable): CC: Dr. Abisai Haley MD; Dr. Zev Tucker MD~ Signed [facility] Work Phone: 1(443) 386-747109-17-2025 Discharge summary Author Zev Tucker [facility] Note Date/Time August 15, 2025 2:55pm [facility] Medical Records Department [address] [place] [address] Instructions for Home/Discharge Instructions 08/15/25 1447 MR#: [id number] Acct: [id number] Name: JOSEPH RINCON Rep #:[id number] : 1975 50 From: Zev Zhang PCP: [...] MD; Dr. Praful Olivo MD ~ Signed [facility] Work Phone: 1([phone]) 851-678709-17-2025 Procedure [facility] 08-15-2025 Progress note Author [facility] Note Date/Time August 15, 2025 1:45pm [facility] Medical Records Department [address] [place] [address] Progress Note - Infect Disease 08/15/25 1344 MR#: [id number] Acct: [id number] Name: JOSEPH RINCON Rep #:[id number] : 1975 50 From: Praful katz MD PCP: Dr. Abisai Haley MD Status:ADM IN Location: [place] [address] Physical Exam Narrative Feeling better, less nausea [...] Cosigner Signature (if applicable): CC: ~ Signed [facility] Work Phone: 1([phone]) 461-277109-17-2025 [facility]09-16-2025 Progress note Author Zev Tucker [facility] Note Date/Time August 14, 2025 2:11pm [facility] Medical Records Department [address] [place] [address] Progress Note - Hospitalist 08/14/25 1400 MR#: [id number] Acct: [id number] Name: JOSEPH RINCON Rep #:[id number] : 1975 50 From: Zev Zhang PCP: Dr. Abisai Haley MD Status:ADM IN Location: [place] [address]- 1 Reason for Visit Chief Complaint: Persistent [...] 08/13/25 09:43 [facility] (Rec: 08/13/25 09:43 SLA [id number]) Nutrition Malnutrition Evidence of Yes Malnutrition Exists [...] closed x 2. Repeat bicarb is 26.5. Buzsiifn910. 3. Acute on chronic recurrent alcoholic pancreatitis: [...] is evidenced by: 10% unintentional weight loss. Wrapping Machine Tender consult DVT prophylaxis: Patient has intermittent thrombocytopenia [...] shock if needed Total time spent in dqlu-mm-ftmy encounter in discussion of advanced directive 17 [...] 223 H Charges/Coding Visit Charges Inpatient E&M: 17003 Subs Hosp L2 08/14/25 1411 <Electronically signed by Zev Tucker MD> Cosigner Signature (if applicable): CC: ~ Signed [facility] Work Phone: 1([phone]) 802-180909-16-2025 Consult note Author Praful Olivo [facility] Note Date/Time August 14, 2025 10:24am [facility] Medical Records Department [address] [place] [address] Consultation - Infectious Dx 08/14/25 1020 MR#: [id number] Acct: [id number] Name: JOSEPH RINCON Rep #:[id number] : 1975 50 From: Praful katz MD PCP: Dr. Abisai Haley MD Status:ADM IN Location: [place] [address] Assessment & Plan Assessment/Plan (1) DKA (diabetic [...] performed and neg except as noted above. [facility] Medical History Admitted to alcohol detoxification [...] 08/13/25 09:43 [facility]ASEMIN (Rec: 08/13/25 09:43 SLA [id number]) Nutrition Malnutrition Evidence of Yes Malnutrition Exists [...] applicable): CC: Dr. Abisai Haley MD~ Signed [facility] Work Phone: 1([phone]) 477-467309-15-2025 [address] [facility] Note Date/Time August 15, 2025 5:41pm [facility] Medical Records Department [address] [place] [address] Progress Note - Hospitalist 08/13/25 1528 MR#: [id number] Acct: [id number] Name: JOSEPH RINCON Salbador Rep #:[id number] : 1975 50 From: Zev Zhang PCP: Dr. Abisai Haley MD Status:ADM IN Location: [place] [address] Hospitalist Note Blood culture prelim positive GNR. Patient leukocytosis improved and no fever. No tachycardia. Continue IV Unasyn. 08/13/25 1528 <Electronically signed by Zev Tucker MD> Cosigner Signature (if applicable): CC: ~ Signed [facility] Work Phone: 1([phone]) 917-196009-15-2025 [address] note [address] [facility] Note Date/Time August 13, 2025 8:33am [facility] Medical Records Department [address] [place] [address] Progress Note - Hospitalist 08/13/25 0823 MR#: [id number] Acct: [id number] Name: JOSEPH RINCON Salbador Rep #:[id number] : 1975 50 From: Zev Zhang PCP: [...] Clarity Clear, Urine pH 6.5, Ur Specific [place] 1.010, Urine Protein 100 H, Urine Glucose [...] 80.1 H, Lymph % (Auto) 13.0 L, [place] % (Auto) 6.0, Eos % (Auto) 0.2, [...] Pancreatitis without phlegmon or pseudocyst. Reading Location: [facility] Physical Exam Narrative Seen and examined. [...] closed x 2. Repeat bicarb is 26.5. Nnkbkdmw114. 3. Acute on chronic recurrent alcoholic pancreatitis: [...] is evidenced by: 10% unintentional weight loss. Wrapping Machine Tender consult DVT prophylaxis: Patient has intermittent thrombocytopenia [...] shock if needed Total time spent in oiuo-pu-eegr encounter in discussion of advanced directive 17 [...] Base Excess 0, O2 Saturation 95, ABG gAK836.6 L, ABG pO2 63 L, O2 Delivery [...] 270 H Charges/Coding Visit Charges Inpatient E&M: 92755 Subs Hosp L3 08/13/25 0833 <Electronically signed by Zev Tucker MD> Cosigner Signature (if applicable): CC: ~ Signed [facility] Work Phone: 1(771) 470-524109-14-2025 History and physical note Author Zev Tucker [facility] Note Date/Time August 12, 2025 1:38pm [facility] Medical Records Department [address] [place] [address] H&P Exam - Hospitalist 08/12/25 1302 MR#: [id number] Acct: [id number] Name: JOSEPH RINCON Rep #:[id number] : 1975 50 From: Zev Zhang PCP: [...] fluid leading to metabolic alkalosis. Lipase elevated. [facility] Medical History Admitted to alcohol detoxification [...] Pancreatitis without phlegmon or pseudocyst. Reading Location: [facility] Assessment & Plan Assessment/Plan (1) DKA [...] is evidenced by: 10% unintentional weight loss. Wrapping Machine Tender consult DVT prophylaxis: Patient has intermittent thrombocytopenia [...] shock if needed Total time spent in rwrs-em-ezwh encounter in discussion of advanced directive 17 [...] Base Excess 0, O2 Saturation 95, ABG nMA203.6 L, ABG pO2 63 L, O2 Delivery [...] 270 H Charges/Coding Visit Charges Inpatient E&M: 54986 Init Hosp L3 Procedures Hospitalists Procedures: 04983 Advncd Care Plan 30 Min 08/12/25 1338 <Electronically signed by Zev Tucker MD> Cosigner Signature (if applicable): CC: Dr. Abisai Haley MD; Dr. Zev Tucker MD~ Signed [facility] Work Phone: [phone] 357-164409-14-2025 Discharge summary Author Wellington Rader [facility] Note Date/Time August 12, 2025 1:00pm [facility] Medical Records Department [address] [place] [address] Emergency Department Summary 08/12/25 MR#: [id number] Acct: [id number] Name: JOSEPH RINCON Rep #:[id number] : 1975 50 From: Wellington Rader MD [...] fevers or chills. No known sick contacts. [facility] Medical History Admitted to alcohol detoxification center [...] Pancreatitis without phlegmon or pseudocyst. Reading Location: [id number] Management Discussion w/another healthcare provider: Hospitalist Critical Care Time Critical Care Time: Yes Critical care time (excluding procedures): 30-74 minutes (41 min), Including time spent:, Discussing w/Patient &/or Family/[employer], Discussing w/Consultants, Arranging Admission or Transfer and Performing Direct Patient Care at Bedside Discharge Plan Dx/Rx/DC Orders Clinical Impression: Acute on chronic pancreatitis, LUI (acute kidney injury), Hyperglycemia due to type 2 diabetes mellitus, Ketosis Disposition Disposition: Acute Care Hospital [facility] What to do if you have Problems For any increased pain, shortness of breath, bleeding, nausea or vomiting, chestpain, or any unexpected problems, contact your Primary Care Provider. Call [facility] ([phone]) or report to the closest Emergency Room. Call 911 if necessary. 08/12/25 1300 <Electronically signed by Wellington Rader MD> Cosigner Signature (if applicable): CC: Dr. Abisai Haley MD ~ Signed [facility] Work Phone: [phone]) [phone] Radiology Diagnostic [facility] [id number] [facility]08-22-2025 Hospital Discharge instructionsAdditional Instructions Date of Discharge: 07/20/25[facility] Work Phone: [phone]) 922-771808-22-2025 Progress note Author Canelo Myers [facility] Note Date/Time July 20, 2025 9: 04am [facility] Medical Records Department [address] [place] [address] Progress Note - Hospitalist 07/20/25 0731 MR#: [id number] Acct: [id number] Name: JOSEPH RINCON Rep #:[id number] : 1975 50 From: Canelo Myers MD PCP: Dr. Abisai Haley MD Status:ADM [facility] Reason for Visit Chief Complaint: Abdominal pain [...] % (Auto) 66.7, Lymph % (Auto) 19.5, [place] % (Auto) 11.8 H, Eos % (Auto) [...] 40 minutes Charges/Coding Visit Charges Inpatient E&M: 52387 Subs Hosp L2 07/20/25 0904 <Electronically signed by Canelo Myers MD> Cosigner Signature (if applicable): CC: ~ Signed [facility] Work Phone: [phone]) 734-731508-21-2025 Progress note Author Canelo Myers [facility] Note Date/Time July 19, 2025 9: 41am [facility] Medical Records Department [address] [place] [address] Progress Note - Hospitalist 07/19/25937 MR#: [id number] Acct: [id number] Name: JOSEPH RINCON Rep #:[id number] : 1975 50 From: Canelo Myers MD PCP: Dr. Abisai Haley MD Status:ADM IN Location: [place] [address]-1 Reason for Visit Chief Complaint: Abdominal pain [...] % (Auto) 61.0, Lymph % (Auto) 25.9, [place] % (Auto) 10.3 H, Eos % (Auto) [...] 40 minutes Charges/Coding Visit Charges Inpatient E&M: 65509 Subs Hosp L2 07/19/25 0941 <Electronically signed by Canelo Myers MD> Cosigner Signature (if applicable): CC: ~ Signed [facility] Work Phone: [phone]) 575-282408-20-2025 Progress note Author Canelo Myers [facility] Note Date/Time July 18, 2025 9: 43am [facility] Medical Records Department [address] [place] [address] Progress Note - Hospitalist 07/18/25 0745 MR#: [id number] Acct: [id number] Name: JOSEPH RINCON Rep #:[id number] : 1975 50 From: Canelo Myers MD PCP: Dr. Abisai Haley MD Status:ADM IN Location: [place] [address] Reason for Visit Chief Complaint: Abdominal pain [...] 80.3 H, Lymph % (Auto) 11.2 L, [place] % (Auto) 7.2, Eos % (Auto) 0.3, [...] Clarity Clear, Urine pH 6.5, Ur Specific [place] 1.010, Urine Protein 30 H, Urine Glucose [...] 73.2 H, Lymph % (Auto) 14.1 L, [place] % (Auto) 9.2, Eos % (Auto) 2.4, [...] retroperitoneum related to the pancreatitis. Reading Location: [facility] Physical Exam Narrative GENERAL: cooperative but tremulous [...] 50 minutes Charges/Coding Visit Charges Inpatient E&M: 53618 Subs Hosp L3 07/18/25 0943 <Electronically signed by Canelo Myers MD> Cosigner Signature (if applicable): CC: ~ Signed [facility] Work Phone: [phone]) 309-337508-19-2025 Discharge summary Author Francisco Colon [facility] Note Date/Time July 17, 2025 3: 13pm [facility] Medical Records Department [address] [place] [address] Emergency Department Summary 07/17/25 MR#: [id number] Acct: [id number] Name: JOSEPH RINCON Rep #:[id number] : 1975 50 From: Francisco Colon MD PCP: Dr. Abisai Haley MD Status:ADM IN Location: [facility] KV846-2 HPI HPI - GI History of Present [...] 80.3 H Lymph % (Auto) 11.2 L [place] % (Auto) 7.2 Eos % (Auto) 0.3 [...] Clarity Clear Urine pH 6.5 Ur Specific [place] 1.010 Urine Protein 30 H Urine Glucose [...] retroperitoneum related to the pancreatitis. Reading Location: [facility] Discharge Plan Triage Chief Complaint: Abd Pain [...] MD [Primary Care Provider] - Print Language: Brazilian Disposition Disposition: Acute Care Hospital [facility] What to do if you have Problems For any increased pain, shortness of breath, bleeding, nausea or vomiting, chestpain, or any unexpected problems, contact your Primary Care Provider. Call [facility] ([phone]) or report to the closest Emergency Room. Call 911 if necessary. 07/17/25 1513 <Electronically signed by Francisco Colon MD> Cosigner Signature (if applicable): CC: Dr. Abisai Haley MD ~ Signed [facility] Work Phone: [phone] 373-107508-19-2025 History and physical note Author Canelo Myers [facility] Note Date/Time July 17, 2025 1: 22pm [facility] Medical Records Department [address] [place] [address] H&P Exam - Hospitalist 07/17/25 1304 MR#: [id number] Acct: [id number] Name: JOSEPH RINCON Rep #:[id number] : 1975 50 From: Canelo Myers MD PCP: Dr. Abisai Haley MD Status:ADM IN Location: [facility] SM204-7 HPI - General General Date of Admission: [...] to regular nursing floor for further manage [facility] Medical History Admitted to alcohol detoxification [...] 80.3 H, Lymph % (Auto) 11.2 L, [place] % (Auto) 7.2, Eos % (Auto) 0.3, [...] Clarity Clear, Urine pH 6.5, Ur Specific [place] 1.010, Urine Protein 30 H, Urine Glucose [...] retroperitoneum related to the pancreatitis. Reading Location: [id number] Assessment & Plan Assessment/Plan (1) Acute alcoholic [...] Multi Select Codes Visit Charges Visit Charges: 02035 Init Hosp L3 07/17/25 1322 <Electronically signed by Canelo Myers MD> Cosigner Signature (if applicable): CC: Dr. Abisai Haley MD; Dr. Canelo Myers MD~ Signed [facility] Work Phone: [phone]) [phone] Radiology Diagnostic study [facility]06-30-2025 Consult note [facility] Medical Records Department [address] [place] [address] Counseling Note - Pharmacy 05/28/25 1332 MR#: [id number] Acct: [id number] Name: JOSEPH RINCON Rep #:[id number] : 1975 50 From: Sho Leyva PCP: Dr. Abisai Haley MD Status:ADM IN Location: [place] [address] Pharmacy [place] Med Reconciliation Pharmacy Service has [...] Signature (if applicable): Date CC: ~ Signed [facility]06-30-2025 Hospital Discharge instructionsAdditional Instructions Follow up with outpatient detox (180) as directed Date of Discharge: 05/28/25[facility] Work Phone: [phone]) 269-469006-30-2025 Discharge summary [facility] [address] [facility] [place] [address] Discharge Summary 05/28/25 1313 MR#: [id number] Acct: [id number] Name: JOSEPH RINCON Rep #:[id number] : 1975 50 From: Mao Becker DO PCP: Dr. Abisai Haley MD Status:ADM IN [facility] Prov[facility] Date of Admission: 05/25/25 Date of Discharge: 05/28/25 Primary Care Physician: Abisai Haley MD Reason For Visit: ETOH DETOXIFICATION, WITHDRAWL Diagnosis Discharge Diagnosis (1) Admitted to alcohol detoxification center: Status: Acute Plan 1. Acute alcohol withdrawal-patient will remain on her present medications, addiction social welfare administrator will talk with the patient #2 hypomagnesemia-magnesium [...] alcohol level was 312. [facility] orders were entered using the alcohol detox order set and she was seen by addiction social welfare administrator. Patient had minimal withdrawal symptoms to hospitalization [...] Self Care Charges/Coding Visit Charges Inpatient E&M: 04639 Disch Hosp >30min 05/28/25 1316 Cosigner Signature (if applicable): CC: Dr. Abisai Haley MD; Dr. Mao Becker, ~ Signed [facility]06-30-2025 [facility] Discharge summary [facility] Medical Records Department [address] [place] [address] Instructions for Home/Discharge Instructions 05/28/25 1020 MR#: [id number] Acct: [id number] Name: JOSEPH RINCON Rep #:[id number] : 1975 50 From: Mao Becker DO [...] MD; Dr. Abisai Haley MD ~ Signed [facility]06-30-2025 Discharge summary Author Mao [facility] Note Date/Time May 28, 2025 12:4 9pm [facility] Medical Records Department [address] [place] [address] Instructions for Home/Discharge Instructions 05/28/25 1020 MR#: [id number] Acct: [id number] Name: JOSEPH RINCON Rep #:[id number] : 1975 50 From: Mao Becker DO [...] MD; Dr. Abisai Haley MD ~ Signed [facility] Work Phone: [phone] Progress note Author Mao [facility] Note Date/Time May 27, 2025 3:33 pm [facility] Medical Records Department [address] [place] [address] Progress Note - Hospitalist 05/27/25 1531 MR#: [id number] Acct: [id number] Name: JOSEPH RINCON Rep #:[id number] : 1975 50 From: Mao Becker DO PCP: Dr. Abisai Haley MD Status:ADM IN Location: [facility] DE235-1 Subjective Subjective Patient was seen and examined [...] remain on her present medications, addiction social welfare administrator will talk with the patient #2 hypomagnesemia-magnesium [...] team: 35-minute Charges/Coding Visit Charges Inpatient E&M: 53470 Subs Hosp L2 05/27/25 1533 <Electronically signed by Mao Becker DO> Cosigner Signature (if applicable): CC: ~ Signed [facility] Work Phone: 1([phone]) [phone] Progress note [facility] Medical Records Department [address] [place] [address] Progress Note - Hospitalist 05/27/25 1531 MR#: [id number] Acct: [id number] Name: JOSEPH RINCON Rep #:[id number] : 1975 50 From: Mao Becker DO PCP: Dr. Abisai Haley MD Status:ADM IN [facility] Subjective Subjective Patient was seen and examined [...] remain on her present medications, addiction social welfare administrator will talk with the patient #2 hypomagnesemia-magnesium [...] team: 35-minute Charges/Coding Visit Charges Inpatient E&M: 68779 Subs Hosp L2 05/27/25 1533 Cosigner Signature (if applicable): CC: ~ Signed [facility]06-28-2025 Progress note Author Mao Becker [facility] Note Date/Time May 26, 2025 1:39 pm [facility] Medical Records Department [address] [place] [address] Progress Note - Hospitalist 05/26/25 1335 MR#: [id number] Acct: [id number] Name: JOSEPH RINCON Rep #:[id number] : 1975 50 From: Mao Becker DO PCP: Dr. Abisai Haley MD Status:ADM IN [facility] Subjective Subjective Patient was seen and examined [...] remain on her present medications, addiction social welfare administrator will talk with the patient #2 hypomagnesemia-magnesium [...] team: 35-minute Charges/Coding Visit Charges Inpatient E&M: 21884 Subs Hosp L2 05/26/25 1339 <Electronically signed by Mao Becker DO> Cosigner Signature (if applicable): CC: ~ Signed [facility] Work Phone: 1([phone]) 787-683806-28-2025 Progress note [facility] Medical Records Department [address] [place] [address] Progress Note - Hospitalist 05/26/25 1335 MR#: [id number] Acct: [id number] Name: JOSEPH RINCON Rep #:[id number] : 1975 50 From: Mao Becker DO PCP: Dr. Abiasi Haley MD Status:ADM IN Location: [facility] SQ943-6 Subjective Subjective Patient was seen and examined [...] remain on her present medications, addiction social welfare administrator will talk with the patient #2 hypomagnesemia-magnesium [...] team: 35-minute Charges/Coding Visit Charges Inpatient E&M: 23159 Subs Hosp L2 05/26/25 133 Cosigner Signature (if applicable): CC: ~ Signed [facility]06-27-2025 Progress note Author Mao [facility] Note Date/Time May 25, 2025 5:04 pm [facility] Medical Records Department [address] [place] [address] Progress Note - Hospitalist 05/25/251701 MR#: [id number] Acct: [id number] Name: JOSEPH RINCON Rep #:[id number] : 1975 50 From: Mao Becker DO PCP: Dr. Abisai Haley MD Status:ADM IN Location: [place] [address] Hospitalist Note Patient was seen and examined today, she was admitted for alcohol detox-patient had just been discharged on 05/06/2025 after completing alcohol detox and treatment for pancreatitis. There is a note from addiction social welfare administrator thatstates the patient will follow-up with 180 for outpatient [facility] treatment. 05/25/251703 <Electronically signed by Mao Becker DO> Cosigner Signature (if applicable): CC: ~ Signed [facility] Work Phone: 1(876) 672-873406-27-2025 Progress note [facility] Medical Records Department [address] [place] [address] Progress Note - Hospitalist 05/25/25 1702 MR#: [id number] Acct: [id number] Name: JOSEPH RINCON Rep #:[id number] : 1975 50 From: Mao Becker DO PCP: Dr. Abisai Haley MD Status:ADM IN Location: [place] [address] Hospitalist Note Patient was seen and examined today, she was admitted for alcohol detox-patient had just been discharged on 05/06/2025 after completing alcohol detox and treatment for pancreatitis. There is a note from addiction social welfare administrator thatstates the patient will follow-up with 180 for outpatient [facility] treatment. 05/25/25 170 Cosigner Signature (if applicable): CC: ~ Signed [facility]06-27-2025 Discharge summary Author Andrew Maurice [facility] Note Date/Time May 25, 2025 2:37 am [facility] Medical Records Department [address] [place] [address] Emergency Department Summary 05/25/25 MR#: [id number] Acct: [id number] Name: JOSEPH RINCON Rep #:[id number] : 1975 50 From: Andrew elizondo DO PCP: Dr. Abisai Haley MD Status:ADM IN Location: [place] [address] HPI History of Present Illness Chief Complaint: [...] intact Psych: Cooperative, appropriate mood and affect [facility] Medical History Pancreatitis Hypokalemia Nausea & vomiting [...] (Auto) 49.9 Lymph % (Auto) 41.1 H [place] % (Auto) 7.7 Eos % (Auto) 0.7 [...] Clarity Clear Urine pH 6.0 Ur Specific [place] 1.015 Urine Protein 30 H Urine Glucose [...] Discharge Plan Disposition Disposition: Acute Care Hospital [facility] Discharge Date/Time: 05/25/25 02:28 What to do if you have Problems For any increased pain, shortness of breath, bleeding, nausea or vomiting, chestpain, or any unexpected problems, contact your Primary Care Provider. Call [facility] ([phone]) or report to the closest Emergency Room. Call 911 if necessary. 05/25/25 0237 <Electronically signed by Andrew Maurice DO> Cosigner Signature (if applicable): CC: Dr. Abisai Haley MD ~ Signed [facility] Work Phone: [phone] History and physical note Author Myra Null [facility] Note Date/Time May 25, 2025 1:54 am [facility] Medical Records Department [address] [place] [address] H&P Exam - Hospitalist 05/25/25 0037 MR#: [id number] Acct: [id number] Name: JOSEPH RINCON Rep #:[id number] : 1975 50 From: Myra Null MD [...] (>1/5 vodka daily) who presents to the [facility] ED on 05/25/25 with history of [...] 1, Zofran 4 mg IV x 1. [facility] Medical History Pancreatitis Hypokalemia Nausea & [...] (>1/5 vodka daily) who presents to the [facility] ED on 05/25/25 with history of [...] admission presentation. Charges/Coding Visit Charges Inpatient E&M: 65268 Init Hosp L3 05/25/25 0154 <Electronically signed by Myra Null MD> Cosigner Signature (if applicable): CC: Dr. Myra Null MD; Dr. Abisai Haley MD~ Signed [facility] Work Phone: [phone] Discharge summary [facility] Medical Records Department [address] [place] [address] Emergency Department Summary 05/25/25 MR#: [id number] Acct: [id number] Name: JOSEPH RINCON Rep #:[id number] : 1975 50 From: Andrew elizondo DO PCP: Dr. Abisai Haley MD Status:ADM IN Location: [place] [address] HPI History of Present Illness Chief Complaint: [...] intact Psych: Cooperative, appropriate mood and affect [facility] Medical History Pancreatitis Hypokalemia Nausea & vomiting [...] (Auto) 49.9 Lymph % (Auto) 41.1 H [place] % (Auto) 7.7 Eos % (Auto) 0.7 [...] Clarity Clear Urine pH 6.0 Ur Specific [place] 1.015 Urine Protein 30 H Urine Glucose [...] Discharge Plan Disposition Disposition: Acute Care Hospital [facility] Discharge Date/Time: 05/25/25 02:28 What to do if you have Problems For any increased pain, shortness of breath, bleeding, nausea or vomiting, chestpain, or any unexpected problems, contact your Primary Care Provider. Call [facility] ([phone]) or report tothe closest Emergency Room. Call 911 if necessary. 05/25/25 0237 Cosigner Signature (if applicable): CC: Dr. Abisai Haley MD ~ Signed [facility]-27-2025 History and physical note [facility] Medical Records Department [address] [place] [address] H&P Exam - Hospitalist 05/25/25 0037 MR#: [id number] Acct: [id number] Name: JOSEPH RINCON Rep #:[id number] : 1975 50 From: Myra Null MD [...] (>1/5 vodka daily) who presents to the [facility] ED on 05/25/25 with history of [...] 1, Zofran 4 mg IV x 1. [facility] Medical History Pancreatitis Hypokalemia Nausea & [...] (>1/5 vodka daily) who presents to the [facility] ED on 05/25/25 with history of [...] admission presentation. Charges/Coding Visit Charges Inpatient E&M: 23250 Init Hosp L3 05/25/25 0154 Cosigner Signature (if applicable): CC: Dr. Myra Null MD; Dr. Abisai Haley MD~ Signed [facility]06-08-2025 Discharge summary [facility] Medical Records Department [address] [place] [address] Instructions for Home/Discharge Instructions 05/06/25 1312 MR#: [id number] Acct: [id number] Name: JOSEPH RINCON Rep #:[id number] : 1975 50 From: Mao Becker DO [...] can be placed): Home, Self Care 05/06/25 1322[facility] DO CC: Dr. Julius Moncada MD; Dr. Abisai Haley MD; Dr. Canelo Myers MD ~ Signed [facility]06-08-[facility] Progress note Author Canelo Myers [facility] Note Date/Time May 04, 2025 9:53a m [facility] Medical Records Department [address] [place] [address] Progress Note - Hospitalist 05/04/25 0742 MR#: [id number] Acct: [id number] Name: JOSEPH RINCON Rep #:[id number] : 1975 50 From: Canelo Myers MD PCP: Dr. Abisai Haley MD Status:ADM IN Location: [place] [address] Reason for Visit Reason for Visit: Diagnoses [...] 04/27/25 14:17 SB (Rec: 04/27/25 14:17 SB [id number]) Nutrition Malnutrition Evidence of Yes Malnutrition Exists [...] Std Deviation 49.9 H, RDW Coeff of [place] 12.8, Plt Count 376, MPV 10.3, Immature Gran % (Auto) 0.300, Neut % (Auto) 58.1, Lymph % (Auto) 23.0, [place] % (Auto) 15.4 H, Eos % (Auto) [...] Requested for PT OT eval and social welfare administrator to assist with discharge planning ? 05/03/2025; [...] documentation, 35minutes Charges/Coding Visit Charges Inpatient E&M: 90730 Subs Hosp L2 05/04/25 0953 <Electronically signed by Canelo Myers MD> Cosigner Signature (if applicable): CC: ~ Signed [facility] Work Phone: 1([phone]) 395-785506-06-2025 Progress note [facility] Medical Records Department [address] [place] [address] Progress Note - Hospitalist 05/04/25 0742 MR#: [id number] Acct: [id number] Name: JOSEPH RINCON Rep #:[id number] : 1975 50 From: Canelo Myers MD PCP: Dr. Abisai Haley MD Status:ADM IN Location: [place] [address] Reason for Visit Reason for Visit: Diagnoses [...] 04/27/25 14:17 SB (Rec: 04/27/25 14:17 SB [id number]) Nutrition Malnutrition Evidence of Yes Malnutrition Exists [...] % (Auto) 58.1, Lymph % (Auto) 23.0, [place] % (Auto) 15.4 H, Eos % (Auto) [...] Requested for PT OT eval and social welfare administrator to assist with discharge planning ? 05/03/2025; [...] documentation, 35minutes Charges/Coding Visit Charges Inpatient E&M: 61171 Subs Hosp L2 05/04/25 0953 Cosigner Signature (if applicable): CC: ~ Signed [facility]06-05-2025 Progress note Author Canelo Myers [facility] Note Date/Time May 03, 2025 11:37 am [facility] Medical Records Department [address] [place] [address] Progress Note - Hospitalist 05/03/25 1136 MR#: [id number] Acct: [id number] Name: JOSEPH RINCON Rep #:[id number] : 1975 50 From: Canelo Myers MD PCP: Dr. Abisai Haley MD Status:ADM IN Location: [place] [address] Reason for Visit Reason for Visit: Diagnoses [...] 04/27/25 14:17 SB (Rec: 04/27/25 14:17 SB [id number]) Nutrition Malnutrition Evidence of Yes Malnutrition Exists [...] % (Auto) 61.1, Lymph % (Auto) 19.7, [place] % (Auto) 15.1 H, Eos % (Auto) [...] Requested for PT OT eval and social welfare administrator to assist with discharge planning ? 05/03/2025; patient remains physical deconditioning. She is agreeable to being discharged with [facility] for rehab this was discussed with patient's son Tan was in the room Charges/Coding Visit Charges Inpatient E&M: 62312 Subs Hosp L2 05/03/25 1137 <Electronically signed by Canelo Myers MD> Cosigner Signature (if applicable): CC: ~ Signed [facility] Work Phone: [phone]) [phone] Progress note [facility] Medical Records Department [address] [place] [address] Progress Note - Hospitalist 05/03/25 1136 MR#: [id number] Acct: [id number] Name: JOSEPH RINCON Rep #:[id number] : 1975 50 From: Canelo Myers MD PCP: Dr. Abisai Haley MD Status:ADM IN Location: [place] [address] Reason for Visit Reason for Visit: Diagnoses [...] 04/27/25 14:17 SB (Rec: 04/27/25 14:17 SB [id number]) Nutrition Malnutrition Evidence of Yes Malnutrition Exists [...] % (Auto) 61.1, Lymph % (Auto) 19.7, [place] % (Auto) 15.1 H, Eos % (Auto) [...] Requested for PT OT eval and social welfare administrator to assist with discharge planning ? 05/03/2025; patient remains physical deconditioning. She is agreeable to being discharged with [facility] for rehab this was discussed with patient's son Tan was in the room Charges/Coding Visit Charges Inpatient E&M: 75318 Subs Hosp L2 05/03/25 1137 Cosigner Signature (if applicable): CC: ~ Signed [facility]06-04-2025 Progress note Author Canelo Myers [facility] Note Date/Time May 02, 2025 11:07 am [facility] Medical Records Department [address] [place] [address] Progress Note - Hospitalist 05/02/25 0736 MR#: [id number] Acct: [id number] Name: JOSEPH RINCON Rep #:[id number] : 1975 50 From: Canelo Myers MD PCP: Dr. Abisai Haley MD Status:ADM IN Location: [place] [address] Reason for Visit Reason for Visit: Diagnoses [...] 04/27/25 14:17 SB (Rec: 04/27/25 14:17 SB [id number]) Nutrition Malnutrition Evidence of Yes Malnutrition Exists [...] % (Auto) 57.2, Lymph % (Auto) 22.5, [place] % (Auto) 15.8 H, Eos % (Auto) [...] Requested for PT OT eval and social welfare administrator to assist with discharge planning Charges/Coding Visit Charges Inpatient E&M: 03058 Subs Hosp L2 05/02/25 1107 <Electronically signed by Canelo Myers MD> Cosigner Signature (if applicable): CC: ~ Signed [facility] Work Phone: 1([phone]) 217-901506-04-2025 Progress note [facility] Medical Records Department [address] [place] [address] Progress Note - Hospitalist 05/02/25 0736 MR#: [id number] Acct: [id number] Name: JOSEPH RINCON Rep #:[id number] : 1975 50 From: Canelo Myers MD PCP: Dr. Abisai Haley MD Status:ADM IN Location: [place] [address] Reason for Visit Reason for Visit: Diagnoses [...] 04/27/25 14:17 SB (Rec: 04/27/25 14:17 SB [id number]) Nutrition Malnutrition Evidence of Yes Malnutrition Exists [...] % (Auto) 57.2, Lymph % (Auto) 22.5, [place] % (Auto) 15.8 H, Eos % (Auto) [...] Requested for PT OT eval and social welfare administrator to assist with discharge planning Charges/Coding Visit Charges Inpatient E&M: 75462 Subs Hosp L2 05/02/25 1107 Cosigner Signature (if applicable): CC: ~ Signed [facility]06-03-2025 Progress note Author Canelo Myers [facility] Note Date/Time May 01, 2025 9:31a m [facility] Medical Records Department [address] [place] [address] Progress Note - Hospitalist 05/01/25 0930 MR#: [id number] Acct: [id number] Name: JOSEPH RINCON #:[id number] : 1975 50 From: Canelo Myers MD PCP: Dr. Abisai Haley MD Status:ADM IN Location: [place] [address] Reason for Visit Reason for Visit: Diagnoses [...] 04/27/25 14:17 SB (Rec: 04/27/25 14:17 SB [id number]) Nutrition Malnutrition Evidence of Yes Malnutrition Exists [...] Requested for PT OT eval and social welfare administrator to assist with discharge planning Charges/Coding Visit Charges Inpatient E&M: 17217 Subs Hosp L2 05/01/25 0931 <Electronically signed by Canelo Myers MD> Cosigner Signature (if applicable): CC: ~ Signed [facility] Work Phone: 1([phone]) 832-377906-03-2025 Progress note [facility] Medical Records Department [facility] [address] [address] Progress Note - Hospitalist 05/01/25 0930 MR#: [id number] Acct: [id number] Name: JOSEPH RINCON Rep #:[id number] : 1975 50 From: Canelo Myers MD PCP: Dr. Abisai Haley MD Status:ADM IN Location: [place] [address] Reason for Visit Reason for Visit: Diagnoses [...] 04/27/25 14:17 SB (Rec: 04/27/25 14:17 SB [id number]) Nutrition Malnutrition Evidence of Yes Malnutrition Exists [...] Requested for PT OT eval and social welfare administrator to assist with discharge planning Charges/Coding Visit Charges Inpatient E&M: 87507 Subs Hosp L2 05/01/25 3556 Cosigner Signature (if applicable): CC: ~ Signed [facility]06-02-2025 Progress note Author Canelo Myers [facility] Note Date/Time April 30, 2025 9:35a m [facility] Medical Records Department [address] [place] [address] Progress Note - Hospitalist 04/30/25813 MR#: [id number] Acct: [id number] Name: JOSEPH RINCON Rep #:[id number] : 1975 50 From: Canelo Myers MD PCP: Dr. Abisai Haley MD Status:ADM IN Location: [place] [address] Reason for Visit Reason for Visit: Diagnoses [...] 04/27/25 14:17 SB (Rec: 04/27/25 14:17 SB [id number]) Nutrition Malnutrition Evidence of Yes Malnutrition Exists [...] % (Auto) 59.8, Lymph % (Auto) 23.4, [place] % (Auto) 13.8 H, Eos % (Auto) [...] weight trends. Charges/Coding Visit Charges Inpatient E&M: 65980 Subs Hosp L2 04/30/25 0948 <Electronically signed by Canelo Myers MD> Cosigner Signature (if applicable): CC: ~ Signed [facility] Work Phone: 1(194) 774-924406-02-2025 Progress note [facility] Medical Records Department [address] [place] [address] Progress Note - Hospitalist 04/30/2514 MR#: [id number] Acct: [id number] Name: JOSEPH RINCON Rep #:[id number] : 1975 50 From: Canelo Myers MD PCP: Dr. Abisai Haley MD Status:ADM IN Location: [place] [address] Reason for Visit Reason for Visit: Diagnoses [...] 04/27/25 14:17 SB (Rec: 04/27/25 14:17 SB [id number]) Nutrition Malnutrition Evidence of Yes Malnutrition Exists [...] % (Auto) 59.8, Lymph % (Auto) 23.4, [place] % (Auto) 13.8 H, Eos % (Auto) [...] weight trends. Charges/Coding Visit Charges Inpatient E&M: 81886 Subs Hosp L2 04/30/25 0934 Cosigner Signature (if applicable): CC: ~ Signed [facility]06-01-2025 Progress note Author Canelo Myers [facility] Note Date/Time April 29, 2025 8:44[facility] Medical Records Department [address] [place] [address] Progress Note - Hospitalist 04/29/25 0733 MR#: [id number] Acct: [id number] Name: JOSEPH RINCON Rep #:[id number] : 1975 50 From: Canelo Myers MD PCP: Dr. Abisai Haley MD Status:ADM IN Location: [place] [address] Reason for Visit Reason for Visit: Diagnoses [...] 04/27/25 14:17 SB (Rec: 04/27/25 14:17 SB [id number]) Nutrition Malnutrition Evidence of Yes Malnutrition Exists [...] 72.9 H, Lymph % (Auto) 14.1 L, [place] % (Auto) 10.9 H, Eos % (Auto) [...] 50 Minutes Charges/Coding Visit Charges Inpatient E&M: 67021 Subs Hosp L3 04/29/25 0844 <Electronically signed by Canelo Myers MD> Cosigner Signature (if applicable): CC: ~ Signed [facility] Work Phone: 1(726) 781-143706-01-2025 Progress note [facility] Medical Records Department [address] [place] [address] Progress Note - Hospitalist 04/29/25 0733 MR#: [id number] Acct: [id number] Name: JOSEPH RINCON Rep #:[id number] : 1975 50 From: Canelo Myers MD PCP: Dr. Abisai Haley MD Status:ADM IN Location: [place] [address] Reason for Visit Reason for Visit: Diagnoses [...] 04/27/25 14:17 SB (Rec: 04/27/25 14:17 SB [id number]) Nutrition Malnutrition Evidence of Yes Malnutrition Exists [...] 72.9 H, Lymph % (Auto) 14.1 L, [place] % (Auto) 10.9 H, Eos % (Auto) [...] 50 Minutes Charges/Coding Visit Charges Inpatient E&M: 21108 Subs Hosp L3 04/29/25 0844 Cosigner Signature (if applicable): CC: ~ Signed [facility]05-31-2025 Progress note Author Canelo Myers [facility] Note Date/Time April 28, 2025 9:47a m [facility] Medical Records Department [address] [place] [address] Progress Note - Hospitalist 04/28/25 0942 MR#: [id number] Acct: [id number] Name: JOSEPH RINCON Rep #:[id number] : 1975 50 From: Canelo Myers MD PCP: Dr. Abisai Haley MD Status:ADM IN Location: [place] [address] Reason for Visit Reason for Visit: Diagnoses [...] 04/27/25 14:17 SB (Rec: 04/27/25 14:17 SB [id number]) Nutrition Malnutrition Evidence of Yes Malnutrition Exists [...] 78.0 H, Lymph % (Auto) 12.5 L, [place] % (Auto) 8.0, Eos % (Auto) 0.8, [...] 52 Minutes Charges/Coding Visit Charges Inpatient E&M: 43027 Subs Hosp L3 04/28/25 0947 <Electronically signed by Canelo Myers MD> Cosigner Signature (if applicable): CC: ~ Signed [facility] Work Phone: 1([phone]) 856-160305-31-2025 Progress note [facility] Medical Records Department [address] [place] [address] Progress Note - Hospitalist 04/28/25 0942 MR#: [id number] Acct: [id number] Name: JOSEPH RINCON Rep #:[id number] : 1975 50 From: Canelo Myers MD PCP: Dr. Abisai Haley MD Status:ADM IN Location: [place] [address] Reason for Visit Reason for Visit: Diagnoses [...] 04/27/25 14:17 SB (Rec: 04/27/25 14:17 SB [id number]) Nutrition Malnutrition Evidence of Yes Malnutrition Exists [...] 78.0 H, Lymph % (Auto) 12.5 L, [place] % (Auto) 8.0, Eos % (Auto) 0.8, [...] 52 Minutes Charges/Coding Visit Charges Inpatient E&M: 74241 Subs Hosp L3 04/28/25 0947 Cosigner Signature (if applicable): CC: ~ Signed [facility]05-30-2025 Progress note Author Canelo Myers [facility] Note Date/Time April 27, 2025 1:15p m [facility] Medical Records Department [address] [place] [address] Progress Note - Hospitalist 04/27/25 0939 MR#: [id number] Acct: [id number] Name: JOSEPH RINCON Rep #:[id number] : 1975 50 From: Canelo Myers MD PCP: Dr. Abisai Haley MD Status:ADM IN Location: [place] [address] Reason for Visit Reason for Visit: Diagnoses [...] (Auto) 84.6 H, Lymph % (Auto) 7.3L, [place] % (Auto) 7.0, Eos % (Auto) 0.0, [...] Clarity Clear, Urine pH 6.0, Ur Specific [place] 1.010, Urine Protein 30 H, Urine Glucose [...] (Auto) 84.0 H, Lymph % (Auto)7.3 L, [place] % (Auto) 7.9, Eos % (Auto) 0.1, [...] fatty infiltration of the liver. Reading Location: [facility] Physical Exam Narrative GENERAL: cooperative HEENT: [...] 50 Minutes Charges/Coding Visit Charges Inpatient E&M: 58731 Subs Hosp L3 04/27/25 1315 <Electronically signed by Canelo Myers MD> Cosigner Signature (if applicable): CC: ~ Signed [facility] Work Phone: 1(341) 567-317105-30-2025 Progress note [facility] Medical Records Department [address] [place] [address] Progress Note - Hospitalist 04/27/25 0939 MR#: [id number] Acct: [id number] Name: JOSEPH RINCON Rep #:[id number] : 1975 50 From: Canelo Myers MD PCP: Dr. Abisai Haley MD Status:ADM IN Location: [place] [address] Reason for Visit Reason for Visit: Diagnoses [...] (Auto) 84.6 H, Lymph % (Auto) 7.3L, [place] % (Auto) 7.0, Eos % (Auto) 0.0, [...] Clarity Clear, Urine pH 6.0, Ur Specific [place] 1.010, Urine Protein 30 H, Urine Glucose [...] (Auto) 84.0 H, Lymph % (Auto)7.3 L, [place] % (Auto) 7.9, Eos % (Auto) 0.1, Baso % (Auto) 0.3, Absolute Neuts (auto) 9.6 H, Absolute Lymphs (auto) 0.83, Nucleated RBC % 0, PT 12.9, INR 1.0, [id number], Potassium 3.8, Chloride 96 L, Carbon Dioxide [...] fatty infiltration of the liver. Reading Location: [facility] Physical Exam Narrative GENERAL: cooperative HEENT: [...] 50 Minutes Charges/Coding Visit Charges Inpatient E&M: 50778 Subs Hosp L3 04/27/25 1315 Cosigner Signature (if applicable): CC: ~ Signed [facility]05-29-2025 History and physical note Author Julius Moncada [facility] Note Date/Time April 26, 2025 8:28p m [facility] Medical Records Department [address] [place] [address] H&P Exam - Hospitalist 04/26/25 1718 MR#: [id number] Acct: [id number] Name: JOSEPH RINCON Rep #:[id number] : 1975 50 From: Julius Moncada MD [...] (Auto) 84.6 H, Lymph % (Auto) 7.3L, [place] % (Auto) 7.0, Eos % (Auto) 0.0, [...] Clarity Clear, Urine pH 6.0, Ur Specific [place] 1.010, Urine Protein 30 H, Urine Glucose [...] fatty infiltration of the liver. Reading Location: [id number] Assessment & Plan Assessment/Plan (1) Pancreatitis: PLAN: [...] - No concerns regarding exocrine insufficiency - [place] pain control with Tylenol and opioids - [...] Moncada MD; Dr. Abisai Haley MD~ Signed [facility] Work Phone: 1(852) 553-127005-29-2025 History and physical note [facility] Medical Records Department [address] [place] [address] H&P Exam - Hospitalist 04/26/25 1718 MR#: [id number] Acct: [id number] Name: JOSEPH RINCON Rep #:[id number] : 1975 50 From: Julius Moncada MD PCP: Dr. Abisai Haley MD Status:ADM IN Location: [place] [address] HPI - General General Date of Admission: [...] phosphatase 122 total protein 7.7, albumin 4.5 [facility] Medical History Strain of left foot [...] (Auto) 84.6 H, Lymph % (Auto) 7.3L, [place] % (Auto) 7.0, Eos % (Auto) 0.0, [...] Clarity Clear, Urine pH 6.0, Ur Specific [place] 1.010, Urine Protein 30 H, Urine Glucose [...] fatty infiltration of the liver. Reading Location: [facility] Assessment & Plan Assessment/Plan (1) Pancreatitis: [...] - No concerns regarding exocrine insufficiency - [place] pain control with Tylenol and opioids - [...] Moncada MD; Dr. Abisai Haley MD~ Signed [facility]05-29-2025 Evaluation note* Diagnosis Onset Date Resolution Status Admit Date Hypokalemia acute April 26 5:13pm Intractable abdominal pain acute April 26, 2025 5:13pm Nausea & vomiting acute March 5:13pm Pancreatitis acute April 26 5:13pm [facility] Work Phone: 1([phone]) 312-629005-29-2025 Evaluation note* Diagnosis Onset Date Resolution Status Admit Date Hypokalemia inactive April 26 5:13pm Intractable abdominal pain inactive April 26, 2025 5:13pm Nausea & vomiting inactive March 5:13pm Pancreatitis inactive April 26 5:13pm Admitted to alcohol detoxification center acute May 25, 2025 12:33am [facility] Work Phone: 1([phone]) 183-750605-29-2025 Evaluation note* Diagnosis Onset Date Resolution Status [...] diabetes mellitus acute July 17, 2025 12:56pm [facility] Work Phone: [phone] 650-945205-29-2025 Evaluation note* Diagnosis Onset Date Resolution Status [...] pancreatitis chroni c August 12, 2025 12:43pm [facility] Work Phone: [phone] Evaluation note* Diagnosis Onset Date Resolution Status [...] pancreatitis chroni c August 12, 2025 12:43pm [facility] Work Phone: [phone]) [phone] Discharge summary Author [facility] Note Date/Time April 26, 2025 4:45p m [facility] Medical Records Department [address] [place] [address] Emergency Department Summary 04/26/25 MR#: [id number] Acct: [id number] Name: JOSEPH RINCON Rep #:[id number] : 1975 50 From: Humphrey Garcia DO [...] normal colored stool. [facility] Medical History Strain of left foot [...] following commands knew that she was at [facility] the year is 2024 Skin: Warm, dry, [...] 84.6 H Lymph % (Auto) 7.3 L [place] % (Auto) 7.0 Eos % (Auto) 0.0 [...] Clarity Clear Urine pH 6.0 Ur Specific [place] 1.010 Urine Protein 30 H Urine Glucose [...] fatty infiltration of the liver. Reading Location: [id number] Discharge Plan Triage Chief Complaint: Abd Pain [...] MD [Primary Care Provider] - Print Language: Brazilian Disposition Disposition: Acute Care Hospital [facility] What to do if you have Problems For any increased pain, shortness of breath, bleeding, nausea or vomiting, chestpain, or any unexpected problems, contact your Primary Care Provider. Call [facility] ([phone]) or report to the closest Emergency Room. Call 911 if necessary. 04/26/25 1645 <Electronically signed by Humphery Garcia DO> Cosigner Signature (if applicable): CC: Dr. Abisai Haley MD ~ Signed [facility] Work Phone: [phone] Discharge summary [facility] Medical Records Department [address] [place] [address] Emergency Department Summary 04/26/25 MR#: [id number] Acct: [id number] Name: JOSEPH RINCON Rep #:[id number] : 1975 50 From: Humphrey Garcia DO [...] normal colored stool. Patient denies any recentcontacts [facility] Medical History Strain of left foot Plantar [...] following commands knew that she was at [facility] the year is 2024 Skin: Warm, dry, [...] 84.6 H Lymph % (Auto) 7.3 L [place] % (Auto) 7.0 Eos % (Auto) 0.0 [...] Clarity Clear Urine pH 6.0 Ur Specific [place] 1.010 Urine Protein 30 H Urine Glucose [...] fatty infiltration of the liver. Reading Location: [facility] Discharge Plan Triage Chief Complaint: Abd [...] MD [Primary Care Provider] - Print Language: Brazilian Disposition Disposition: Acute Care Hospital [facility] What to do if you have Problems For any increased pain, shortness of breath, bleeding, nausea or vomiting, chestpain, or any unexpected problems, contact your Primary Care Provider. Call [facility] ([phone]) or report tothe closest Emergency Room. Call 911 if necessary. 04/26/25 1645 Cosigner Signature (if applicable): CC: Dr. Abisai Haley MD ~ Signed [facility]05-29-2025 Radiology Diagnostic study note [facility] Imaging Services [address] [place], [place] [address] Abdomen/Pelvis W IV Cont ONLY MR#: [id number] Acct: [id number] Name: JOSEPH RINCON Rep #: [id number] : 1975 F 50 From: Jhonny Roger MD PCP: Dr. Abisai Haley MD Status: REG ER Study:Abdomen/Pelvis W IV Cont ONLY Date of E xam: 04/26/25 Exam# [id number] Ordering Dr: Becky Garcia DO PROCEDURE: ABDOMEN/PELVIS [...] fatty infiltration of the liver. Reading Location: [id number] CC: Dr. Abisai Haley MD; Dr. Humphrey Garcia DO ~ 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: Signed [facility]05-15-2025 Hospital Discharge instructions Additional Instructions Plenty of fluids and rest. Sleep on the main floor tonight. Due to fall risk. No driving for the next 24 hours. Use your Protonix at home for stomach discomfort due to the alcohol. Follow-up with your doctor if not improving or return if worse.[facility] Work Phone: [phone] Radiology Diagnostic study note [facility] Imaging Services [address], [place] [address] Chest PA and Lateral MR#: [id number] Acct: [id number] Name: JOSEPH RINCON Rep #: [id number] : 1975 F 50 From: Jacque Martinez MD PCP: Dr. Abisai Haley MD Status: REG ER Study:Chest PA and Lateral Date of Exam: 04/11/25 Exam# [id number] Ordering Dr: Sheron Colon MD PROCEDURE: CHEST PA AND LATERAL 04/11/2025 REASON FOR EXAM: CHEST PAIN TECHNIQUE: Frontal and lateral views of the chest. COMPARISON: 04/04/2025 FINDINGS: Hardware: None Heart: The heart size is normal. Mediastinum: The mediastinal contour is unremarkable. Lungs: The lungs are clear. Bones: The bones are unremarkable. RAD/Chest PA and Lateral IMPRESSION: NO ACUTE FINDINGS. Reading [facility] CC: Dr. Abisai Haley MD; Dr. Francisco Colon MD ~ 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: Signed [facility]05-07-2025 Discharge summary [facility] Medical Records Department [address] [place] [address] Emergency Department Summary 04/04/25 MR#: [id number] Acct: [id number] Name: JOSEPH RINCON Rep #:[id number] : 1975 50 From: Imani Ruelas PCP: [...] had intermittent hot flashes and then chills/sweats. [facility] Medical History Strain of left foot Plantar [...] 77.0 H Lymph % (Auto) 14.0 L [place] % (Auto) 7.8 Eos % (Auto) 0.2 [...] process is seen. Negative examination. Reading Location: [facility] Abdomen/Pelvis CT 04/04/25 12:02 IMPRESSION: 1. [...] Staff - Active Staff] - Print Language: Brazilian Disposition Disposition: Home, Self Care What to do if you have Problems For any increased pain, shortness of breath, bleeding, nausea or vomiting, chestpain, or any unexpected problems, contact your Primary Care Provider. Call [facility] ([phone]) or report tothe closest Emergency Room. Call 911 if necessary. 04/04/25 1607 Cosigner Signature (if applicable): CC: Dr. Abisai Haley MD ~ Signed [facility]05-07-2025 Discharge summary Author Imani Knight [facility] Note Date/Time April 04, 2025 4:07pm [facility] Medical Records Department [address] [facility] [place] [address] Emergency Department Summary 04/04/25 MR#: [id number] Acct: [id number] Name: JOSEPH RINCON Rep #:[id number] : 1975 50 From: Imani Ruelas PCP: [...] had intermittent hot flashes and then chills/sweats. [facility] Medical History Strain of left foot Plantar [...] 77.0 H Lymph % (Auto) 14.0 L [place] % (Auto) 7.8 Eos % (Auto) 0.2 [...] process is seen. Negative examination. Reading Location: [facility] Abdomen/Pelvis CT 04/04/25 12:02 IMPRESSION: 1. [...] 4. Additional description as above. Reading Location: [id number] Rhythm Strip Rhythm Strip: Sinus Tach Rate: [...] Staff - Active Staff] - Print Language: Brazilian Disposition Disposition: Home, Self Care What to do if you have Problems For any increased pain, shortness of breath, bleeding, nausea or vomiting, chestpain, or any unexpected problems, contact your Primary Care Provider. Call [facility] ([phone]) or report to the closest Emergency Room. Call 911 if necessary. 04/04/25 1607 <Electronically signed by Imani Knight DO> Cosigner Signature (if applicable): CC: Dr. Abisai Haley MD ~ Signed [facility] Work Phone: [phone] 444-830505-07-2025 Radiology Diagnostic study note [facility] Imaging Services [address] [place] [address] Abdomen/Pelvis W IV Cont ONLY MR#: [id number] Acct: [id number] Name: JOSEPH RINCON Rep #: [id number] : 1975 F 50 From: Odalis Giraldo MD PCP: Dr. Abisai Haley MD Status: REG ER Study:Abdomen/Pelvis W IV Cont ONLY Date of E xam: 04/04/25 Exam# [id number] Ordering Dr: Selene Knight DO PROCEDURE: ABDOMEN/PELVIS [...] lobe airspace disease is new from prior, [id number] x 24 mm (series 2, image 11). [...] Haley MD; Dr. Imani Knight DO ~ 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: Signed [facility]05-07-2025 Radiology Diagnostic study note [facility] Imaging Services [address] [place], [place] [address] Chest 1 View (Portable) MR#: [id number] Acct: [id number] Name: JOSEPH RINCON Rep #: [id number] : 1975 F 50 From: Guido Valles MD PCP: Dr. Abisai Haley MD Status: REG ER Study:Chest 1 View (Portable) Date of Exam: 04/04/25 Exam# [id number] Ordering Dr: Selene Knight DO PROCEDURE: CHEST 1 VIEW (PORTABLE) 04/04/2025 REASON FOR EXAM: CHEST PAIN TECHNIQUE: Frontal view of the chest. COMPARISON: Chest x-ray 11/12/2024 RAD/Chest 1 View (Portable) IMPRESSION: Lungs appear clear throughout. No pleural effusion or pneumothorax is seen. The cardiomediastinal silhouette is stable, without evidence of cardiomegaly. No acute osseous process is seen. Negative examination. Reading Location: [place] [address] CC: Dr. Abisai Haley MD; Dr. Imani Knight DO ~ 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: Signed [facility]05-25-2024 NoteHNO ID: [id number] Author: ARETHA SCHOFIELD APRN.RUBY SOFTWARE DEVELOPER Service: ? Author Type: Nurse Practitioner Type: [...] drugs Objective Physical Exam (more content not included)...[facility]05-25-2024 Instructions * Patient Instructions* Aretha Schofield APRN.RUBY SOFTWARE DEVELOPER - 04/22/2024 2:02 PM EDT ASSESSMENT/PLAN: 1. [...] Discussed expected course of illness Aretha Schofield APRN.RUBY SOFTWARE DEVELOPER [facility] History of Present illness Narrative* Aretha Schofield APRN.RUBY SOFTWARE DEVELOPER - 04/22/2024 1:56 PM EDT Subjective Sinus [...] Discussed expected course of illness Aretha Schofield APRN.RUBY SOFTWARE DEVELOPER documented in [facility] Discharge summary Author Caprice Jerry [facility] July 29, 2023 5:41pm Note Date/Time July 29, 2023 2: 37pm [facility] Medical Records Department [address] [place] [address] Emergency Department Summary 07/29/23 MR#: [id number] Acct: [id number] Name: JOSEPH RINCON Rep #:[id number] : 1975 48 From: Caprice Jerry MD [...] time that did not show any disease. [facility] Medical History Acute lumbar myofascial strain Alcohol [...] % (Auto) 63.7 Lymph % (Auto) 25.4 [place] % (Auto) 8.5 Eos % (Auto) 1.6 [...] your Primary Care Provider. Call [facility] ([phone]) or report to the closest Emergency Room. Call 911 if necessary. 07/29/23 1741 <Electronically signed by Caprice Jerry MD> Cosigner Signature (if applicable): CC: Milana Garcia DO ~ Signed [facility] Work Phone: [phone] Jerry [facility] May 25, 2023 2:53am Note Date/Time May 24, 2023 11:2 0pm [facility] Medical Records Department [address] [place] [address] Emergency Department Summary 05/24/23 MR#: [id number] Acct: [id number] Name: JOSEPH RINCON Rep #:[id number] : 1975 48 From: Caprice Jerry MD [...] blood pressure. She just received a 14-day ekg monitor tech in the mail that she will wear. [...] but there has never been seizures documented. [facility] Medical History Acute lumbar myofascial strain Alcohol [...] 40.3 L Lymph % (Auto) 45.0 H [place] % (Auto) 11.4 H Eos % (Auto) [...] Color Urine Clarity Urine pH Ur Specific [place] Urine Protein Urine Glucose (UA) Urine Ketones [...] (Auto) Neut % (Auto) Lymph % (Auto) [place] % (Auto) Eos % (Auto) Baso % [...] Clarity Clear Urine pH 6.5 Ur Specific [place] 1.005 Urine Protein Negative Urine Glucose (UA) [...] Patient's had no significant arrhythmias noted on ekg monitor tech throughout her ED stay. Portable chest x-ray [...] been worked up. She just got her ekg monitor tech in the mail tonight to put on. [...] your Primary Care Provider. Call [facility] ([phone]) or report to the closest Emergency Room. Call 911 if necessary. 05/25/23 0253 <Electronically signed by Caprice Jerry MD> Cosigner Signature (if applicable): CC: Milana Garcia DO ~ Signed [facility] Work Phone: [phone] Dyer [facility] May 05, 2023 12:31am Note Date/Time May 04, 2023 10:36 pm [facility] Medical Records Department [address] [place] [address] Emergency Department Summary 05/04/23 MR#: [id number] Acct: [id number] Name: JOSEPH RINCON Rep #:[id number] : 1975 48 From: John Dyer DO PCP: Milana Gracia DO Status:REG E R Location: ED HPI [...] a cardiac cath 11/19/2022 which was normal. [facility] Medical History Acute lumbar myofascial strain Alcohol [...] % (Auto) 51.3 Lymph % (Auto) 35.6 [place] % (Auto) 9.4 Eos % (Auto) 2.7 [...] 22:33 EDT Reading Location ID and State: [facility] / [place] Tel , Service support , Brain CT [...] your Primary Care Provider. Call [facility] ([phone]) or report to the closest Emergency Room. Call 911 if necessary. 05/05/23 0031 <Electronically signed by John Dyer DO> Cosigner Signature (if applicable): CC: Milana Garcia DO ~ Signed [facility] Work Phone: 1([phone]) 858-582805-13-[address] Johnson [facility] April 10, 2023 3:15pm Note Date/Time April 10, 2023 3:15p [facility] Medical Records Department [address] [place] [address] Progress Note - Hospitalist 04/10/23 1511 MR#: [id number] Acct: [id number] Name: JOSEPH RINCON Rep #:[id number] : 1975 48 From: Radha Johnson DO PCP: Milana Garcia DO Status:ADM I N Location: [place] [address] Hospitalist Note Is a 48-year-old white female [...] some issues for her at baseline. 04/10/23 8432 <Electronically signed by Radha Johnson DO> Cosigner Signature (if applicable): CC: ~ Signed [facility] Work Phone: [phone]) 305-539005-13-[address] Jacobs [facility] April 10, 2023 7:13am Note Date/Time April 09, 2023 11:06 pm [facility] Medical Records Department [address] [place] [address] Emergency Department Summary 04/09/23 MR#: [id number] Acct: [id number] Name: JOSEPH RINCON Rep #:[id number] : 1975 48 From: David Ruelas PCP: Milana Garcia DO Status:ADM I N Location: [place] [address] HPI History of Present Illness Chief Complaint: [...] TAD Risk Factors: Negative for Hypertension PFSH [facility] Medical History Acute lumbar myofascial strain [...] 85.1 H Lymph % (Auto) 11.3 L [place] % (Auto) 1.6 Eos % (Auto) 0.4 [...] Color Urine Clarity Urine pH Ur Specific [place] Urine Protein Urine Glucose (UA) Urine Ketones [...] (Auto) Neut % (Auto) Lymph % (Auto) [place] % (Auto) Eos % (Auto) Baso % [...] Clarity Clear Urine pH 6.5 Ur Specific [place] 1.010 Urine Protein Negative Urine Glucose (UA) [...] (Auto) Neut % (Auto) Lymph % (Auto) [place] % (Auto) Eos % (Auto) Baso % [...] Color Urine Clarity Urine pH Ur Specific [place] Urine Protein Urine Glucose (UA) Urine Ketones [...] sinus rhythm with a rate of 86. [place] interval, QRS interval, and QTc intervals were all normal. [place] was normal. There are no acute ST [...] (42), Including time spent:, Discussing w/Patient &/or Family/[employer], Discussing w/Consultants, Arranging Admission or Transfer and Performing Direct Patient Care at Bedside Discharge Plan Dx/Rx/DC Orders Clinical Impression: High anion gap metabolic acidosis, Hypotension, Lactic acidosis Disposition Disposition: [facility] Discharge Date/Time: 04/10/23 03:28 What to do if you have Problems For any increased pain, shortness of breath, bleeding, nausea or vomiting, chestpain, or any unexpected problems, contact your Primary Care Provider. Call [facility] ([phone]) or report to the closest Emergency Room. Call 911 if necessary. 04/10/23712 <Electronically signed by David Jacobs DO> Cosigner Signature (if applicable): CC: Milana Garcia DO ~ Signed [facility] Work Phone: [phone]) 495-334105-13-2023 History and physical note Author Dr. Kiran [facility] April 10, 2023 5:36am Note Date/Time April 10, 2023 1:28a [facility] System Medical Records Department [address] [place] [address] H&P Exam - Hospitalist 04/10/23 0128 MR#: [id number] Acct: [id number] Name: JOSEPH RINCON Rep #:[id number] : 1975 48 From: Young Kiran MD PCP: Milana Garcia DO Status:ADM I N Location: [place] [id number]- 1 HPI - General General Date of [...] before presentation patient had multiple loose stools. [facility] Medical History Acute lumbar myofascial strain [...] cranial nerves II through XII grossly intact. Bourg- Hallpike maneuver to the right was positive [...] 85.1 H, Lymph % (Auto) 11.3 L, [place] % (Auto) 1.6, Eos % (Auto) 0.4, [...] Lovenox ordered. Charges/Coding Visit Charges Inpatient E&M: 41176 Init Hosp L3 04/10/23 0536 <Electronically signed by Young Kiran MD> Cosigner Signature (if applicable): CC: Dr. Young Kiran MD; Milana Garcia DO~ Signed [facility] Work Phone: [phone]) [phone] Gaviria [facility] March 22, 2023 10:43pm Note Date/Time March 22, 2023 7:0 6pm [facility] Medical Records Department [address] [place] [address] Emergency Department Summary 03/22/23 MR#: [id number] Acct: [id number] Name: JOSEPH RINCON Rep #:[id number] : 1975 47 From: Lauri Gaviria MD [...] Prior similar symptoms: No Recent [facility] Medical History Acute lumbar myofascial strain [...] % (Auto) 64.4 Lymph % (Auto) 22.7 [place] % (Auto) 9.9 Eos % (Auto) 2.0 [...] Color Urine Clarity Urine pH Ur Specific [place] Urine Protein Urine Glucose (UA) Urine Ketones Urine Occult Blood Urine Nitrite Urine Bilirubin Urine Urobilinogen Ur Leukocyte Esterase Urine RBC Urine WBC Ur Squamous Epith Cells Amorphous Sediment Urine Bacteria Urine Mucus 03/22/23 20:20 WBC RBC Hgb Hct MCV MCH MCHC RDW Std Deviation RDW Coeff of Braxton Plt Count MPV Immature Gran % (Auto) Neut % (Auto) Lymph % (Auto) [place] % (Auto) Eos % (Auto) Baso % [...] Sl. Cloudy Urine pH 6.5 Ur Specific [place] 1.005 Urine Protein Negative Urine Glucose (UA) [...] (Rate is 68 and EKG is normal. KY interval is 130 ms. Cures duration 86 ms. QT duration 408 ms. Y[place]hey is normal.) Treatment and Re-Evaluation :: Patient [...] your Primary Care Provider. Call [facility] ([phone]) or report to the closest Emergency Room. Call 911 if necessary. 03/22/232242 <Electronically signed by Lauri Gaviria MD> Cosigner Signature (if applicable): CC: Milana Garcia DO ~ Signed [facility] Work Phone: [phone]) 745-403904-24-2023 Hospital Discharge instructions Additional Instructions Call your doctor in the morning to have repeat blood work in 3 to 5 days. Let them know that your creatinine is elevated.[facility] Work Phone: [phone]) 430-624910-09-2022 Hospital Discharge instructions Additional Instructions Plenty of fluids and rest. No alcohol for the next 48 hours. No driving for the next 24 hours. Follow-up with your primary care physician. They can get an EEG to further evaluate you for possible seizures. Your labs and CAT scan tonight were unremarkable other than your alcohol level that was 237.[facility] Work Phone: [phone] 220-775308-23-2022 Instructions* Patient Instructions* Samantha Deleon APRN.[facility] - 07/21/2022 7:38 PM EDT SCIATICA: [...] bladder or bowel control. documented in this encounter[facility]-2022 History of Present illness Narrative* Sabrina [...] 21, 2022 7:16 PM documented in this encounter[facility]-2022 History of Present illness Narrative* Samantha Deleon, TIRE TECHNICIAN.RUBY SOFTWARE DEVELOPER - 07/21/2022 7:10 PM EDT This note was created using Leeoriter. Subjective Joseph Rincon is a 47 year [...] weakness Denies using homeopathic or OTC medications WELCOME [employer]AGON HOSTESS. The history is provided by the patient. No high school foreign language tutor was used. Musculoskeletal Problem This is a [...] Flexeril Follow up with PCP Samantha Deleon APRN.RUBY SOFTWARE DEVELOPER documented in this encounter[facility]-19-2019 History of Past illness Narrative* Problem [...] of this encounter (statuses as of 07/21/2022) [facility] Hospital[facility] note Author Sho Leyva [facility] Note Date/Time May 28, 2025 2:19 pm [facility] Medical Records Department [address] [place] [address] Counseling Note - Pharmacy 05/28/25 1332 MR#: [id number] Acct: [id number] Name: JOSEPH RINCON Rep #:[id number] : 1975 50 From: Sho Leyva PCP: Dr. Abisai Haley MD Status:ADM IN Location: [address] Med Reconciliation Pharmacy Service has performed [...] Signature (if applicable): Date CC: ~ Signed [facility] Work Phone: Discharge summary Author Dr. Johnson [facility] April 11, 2023 9:49am Note Date/Time April 11, 2023 9:39a [facility] System Medical Records Department [address] [place] [address] Discharge Summary 04/11/23 0936 MR#: [id number] Acct: [id number] Name: JOSEPH RINCON Rep #:[id number] : 1975 48 From: Radha Johnson DO PCP: Milana Garcia DO Status:ADM I N Location: [place] [address] Providers Date of Admission: 04/10/23 Date of [...] % (Auto) 67.1, Lymph % (Auto) 23.8, [place] % (Auto) 7.8, Eos % (Auto) 0.7, [...] 11:21 EDT Reading Location ID and State: [facility] / [place] Tel , Service support , D/C Instructions [...] Self Care Charges/Coding Visit Charges Inpatient E&M: 19945 Disch Hosp >30min 04/11/23 0949 <Electronically signed by Radha Johnson DO> Cosigner Signature (if applicable): CC: Dr. Radha Johnson DO; Milana Garcia DO~ Signed [facility] Work Phone: Discharge summary Author Mao Becker [facility] Note Date/Time May 06, 2025 1:22p taisha [facility] Medical Records Department [address] [place] [address] Instructions for Home/Discharge Instructions 05/06/25 1312 MR#: [id number] Acct: [id number] Name: JOSEPH RINCON Rep #:[id number] : 1975 50 From: Mao Becker DO [...] MD; Dr. Canelo Myers MD ~ Signed [facility] Work Phone: Discharge summary Author [facility] Note Date/Time May 28, 2025 1:16 pm [facility] Medical Records Department [address] [place] [address] Discharge Summary 05/28/25 1313 MR#: [id number] Acct: [id number] Name: JOSEPH RINCON Rep #:[id number] : 1975 50 From: Mao Becker DO PCP: Dr. Abisai Haley MD Status:ADM IN Location: [facility] UW313-9 Providers Date of Admission: 05/25/25 Date of Discharge: 05/28/25 Primary Care Physician: Abisai Haley MD Reason For Visit: ETOH DETOXIFICATION, WITHDRAWL Diagnosis Discharge Diagnosis (1) Admitted to alcohol detoxification center: Status: Acute Plan 1. Acute alcohol withdrawal-patient will remain on her present medications, addiction social welfare administrator will talk with the patient #2 hypomagnesemia-magnesium [...] was seen in the emergency room at [facility] desiring services for alcohol detox. She had been admitted previously only several weeks ago for pancreatitis and alcohol withdrawal and had already gone through the program at that time. Her toxicology screen was positive for barbiturates and benzodiazepines, but alcohol level was 312. Patient was admitted to [facility], orders were entered using the alcohol detox order set and she was seen by addiction social welfare administrator. Patient had minimal withdrawal symptoms to hospitalization [...] Self Care Charges/Coding Visit Charges Inpatient E&M: 71045 Disch Hosp >30min 05/28/25 1316 <Electronically signed by Mao Becker DO> Cosigner Signature (if applicable): CC: Dr. Abisai Haley MD; Dr. Mao Becker DO~ Signed [facility] Work Phone: Discharge summary Author Canelo Myers [facility] Note Date/Time July 20, 2025 2: 48pm [facility] Medical Records Department [address] [place] [address] Discharge Summary 07/20/25 1442 MR#: [id number] Acct: [id number] Name: JOSEPH RINCON Rep #:[id number] : 1975 50 From: Canelo Myers MD PCP: Dr. Abisai Haley MD Status:ADM IN Location: [facility] HB955-7 Providers Date of Admission: 07/17/25 Date of [...] % (Auto) 66.7, Lymph % (Auto) 19.5, [place] % (Auto) 11.8 H, Eos % (Auto) 1.6, Baso % (Auto) 0.2, AbsoluteNeuts (auto) 2.8, Absolute Lymphs (auto) 0.83, Nucleated RBC % 0, Sodium 140, Potassium 3.6, Chloride 103, Carbon Dioxide 27.0, Anion Gap 10, BUN 4, Creatinine 0.40 L, Estim Creat Clear Calc 148.53, Est GFR (MDRD) Non-Af 122, BUN/Creatinine Ratio 10.1, Glucose 107 H, Calcium 7.6, Total Bilirubin 0.86, [id number] H, ALT 114 H, Alkaline Phosphatase 134 [...] Self Care Charges/Coding Visit Charges Inpatient E&M: 65867 Disch Hosp >30min 07/20/25 1448 <Electronically signed by Canelo Myers MD> Cosigner Signature (if applicable): CC: Dr. Abisai Haley MD; Dr. Canelo Myers MD~ Signed [facility] Work Phone: Discharge summary Author Wellington Rader [facility] Note Date/Time August 12, 2025 1:00pm [facility] Medical Records Department [address] [place] [address] Emergency Department Summary 08/12/25 MR#: [id number] Acct: [id number] Name: JMIBOLUKEJOSEPH L Rep #:[id number] : 1975 50 From: Wellington Rader MD [...] fevers or chills. No known sick contacts. [facility] Medical History Admitted to alcohol detoxification center [...] Pancreatitis without phlegmon or pseudocyst. Reading Location: [id number] Management Discussion w/another healthcare provider: Hospitalist Critical Care Time Critical Care Time: Yes Critical care time (excluding procedures): 30-74 minutes (41 min), Including time spent:, Discussing w/Patient &/or Family/[employer], Discussing w/Consultants, Arranging Admission or Transfer and Performing Direct Patient Care at Bedside Discharge Plan Dx/Rx/DC Orders Clinical Impression: Acute on chronic pancreatitis, LUI (acute kidney injury), Hyperglycemia due to type 2 diabetes mellitus, Ketosis Disposition Disposition: Acute Care Hospital [facility] What to do if you have Problems For any increased pain, shortness of breath, bleeding, nausea or vomiting, chestpain, or any unexpected problems, contact your Primary Care Provider. Call [facility] ([phone]) or report to the closest Emergency Room. Call 911 if necessary. 08/12/25 1300 <Electronically signed by Wellington Rader MD> Cosigner Signature (if applicable): CC: Dr. Abisai Haley MD ~ Signed [facility] Work Phone: Evaluation noteNo assessment information available [facility] Work Phone: Evaluation note* Diagnosis Hip pain, acute, left- Primary [facility] Diagnosis Onset Date Resolution Status Bilateral acute otitis media acute [facility] Work Phone: Evaluation note* Diagnosis Onset Date Resolution Status Acute lumbar myofascial strain acute Strain of left hip acute Acute bronchitis acute ACS (acute coronary syndrome) acute Hypertensive urgency acute Hypertriglyceridemia acute Non-ST elevated myocardial infarction acute Hypertension chronic Type 2 diabetes mellitus [facility] Work Phone: Evaluation note* Diagnosis Onset Date Resolution Status Acute lumbar myofascial strain acute Strain of left hip acute Acute bronchitis acute ACS (acute coronary syndrome) acute Hypertensive urgency acute Hypertriglyceridemia acute Non-ST elevated myocardial infarction acute HTN (hypertension) chronic Type 2 diabetes mellitus [facility] Work Phone: Evaluation note* Diagnosis Onset Date Resolution Status Acute bronchitis acute [facility] Work Phone: Evaluation note* Diagnosis Onset Date Resolution Status Acute bronchitis acute High anion gap metabolic acidosis acute Hypotension acute Lactic acidosis acute Vertigo acute Type 2 diabetes mellitus [facility] Work Phone: Evaluation note* Diagnosis Onset Date Resolution Status Acute bronchitis acute High anion gap metabolic acidosis resolved Hypotension resolved Lactic acidosis resolved Vertigo resolved [facility] Work Phone: Evaluation note* Diagnosis Onset Date Resolution Status Acute bronchitis acute High anion gap metabolic acidosis resolved Hypotension resolved Lactic acidosis resolved Vertigo resolved Hypertriglyceridemia acute Palpitations acute Syncope and collapse acute HTN (hypertension) chronic Tobacco use disorder [facility] Work Phone: Evaluation note* Diagnosis Onset Date Resolution Status High anion gap metabolic acidosis resolved Hypotension resolved Lactic acidosis resolved Vertigo resolved Hypertriglyceridemia acute Palpitations acute Syncope and collapse acute HTN (hypertension) chronic Tobacco use disorder chronic Acute sinusitis acute [facility] Work Phone: Evaluation note* Diagnosis Onset Date Resolution Status Hypertriglyceridemia acute Palpitations acute Syncope and collapse acute HTN (hypertension) chronic Tobacco use disorder chronic Acute sinusitis acute [facility] Work Phone: Evaluation note* Diagnosis Onset Date Resolution Status Hypertriglyceridemia acute Palpitations acute Syncope and collapse acute HTN (hypertension) chronic Tobacco use disorder chronic Acute sinusitis acute Hypertriglyceridemia acute Palpitations acute HTN (hypertension) chronic Tobacco use disorder chronic [facility] Work Phone: Evaluation note* Diagnosis Onset Date Resolution Status Acute sinusitis acute Hypertriglyceridemia acute Palpitations acute HTN (hypertension) chronic Tobacco use disorder chronic Contact with or exposure to other viral diseases acute URI (upper respiratory infection) acute [facility] Work Phone: Evaluation note* Diagnosis Onset Date Resolution Status Plantar fasciitis of left foot acute Strain of left foot acute [facility] Work Phone: Evaluation note* Diagnosis Sinus congestion- Primary Other diseases of nasal cavity and sinuses Wheezing Nausea Nausea alone documented [facility] Diagnosis Insomnia- Primary Insomnia, unspecified [...] pain, acute, left [facility] Myra Null [facility] Note Date/Time May 25, 2025 1:54 am [facility] Medical Records Department [address] [place] [address] H&P Exam - Hospitalist 05/25/25 0037 MR#: [id number] Acct: [id number] Name: JOSEPH RINCON Rep #:[id number] : 1975 50 From: Myra Null MD [...] (>1/5 vodka daily) who presents to the [facility] ED on 05/25/25 with history of [...] 1, Zofran 4 mg IV x 1. [facility] Medical History Pancreatitis Hypokalemia Nausea & [...] (>1/5 vodka daily) who presents to the [facility] ED on 05/25/25 with history of [...] admission presentation. Charges/Coding Visit Charges Inpatient E&M: 49672 Init Hosp L3 05/25/25 0154 <Electronically signed by Myra Null MD> Cosigner Signature (if applicable): CC: Dr. Myra Null MD; Dr. Abisai Haley MD~ Signed [facility] Work Phone: Hospital Discharge instructions Additional Instructions Please follow-up with your PCP and pain management. Return for worsening of symptoms.[facility] Work Phone: Reason for referral (narrative)* Diagnostic Procedure Only (Urgent) - Pending Review Specialty Diagnoses / Procedures Referred By Contac t Referred To Contact XR IMAGING Diagnoses Hip pain, acute, left Procedures XR HIP GENERAL 3V PELV/AP/LAT LEFT RADEX HIP UNILATERAL WITH PELVIS 2-3 VIEWS Samantha Deleon APRN.CNP [address] [place] [address] Xr Imaging Referral ID Status Reason Start Date Expiration Date Visits Requested Visits Authorized [id number] Pending Review Auto-Generat ed Referral 07/21/2022 08/20/2023 1 1 [facility] for referral (narrative)* Diagnostic Procedure Only (Urgent) - Closed Specialty Diagnoses / Procedures Referred By Contac t Referred To Contact XR IMAGING Diagnoses Hip pain, acute, left Procedures XR HIP GENERAL 3V PELV/AP/LAT LEFT RADEX HIP UNILATERAL WITH PELVIS 2-3 VIEWS Samantha Deleon APRN.[employer] SOFTWARE DEVELOPER [address] [place] [address] [place] [address] Referral ID Status Reason Start Date Expiration Date V isits Requested Visits Authorized [id number] Closed Auto-Generate d Referral 07/21/2022 08/20/2023 1 1 [facility] for referral (narrative)No reason for referral [facility] Work Phone: Reason for visit Narrative* Diagnostic Procedure Only (Urgent) - Closed Specialty Diagnoses / Procedures Referred By Contac t Referred To Contact XR IMAGING Diagnoses Hip pain, acute, left Procedures XR HIP GENERAL 3V PELV/AP/LAT LEFT RADEX HIP UNILATERAL WITH PELVIS 2-3 VIEWS Samantha Deleno APRN.CNP [address] [place] [address] [place] [address] Referral ID Status Reason Start Date Expiration Date V isits Requested Visits Authorized [id number] Closed Auto-Generate d Referral 07/21/2022 08/20/2023 1 1 [facility] Summary Purpose Family History No Family [...] No February 22, 2022 12:30pm Power of Mechanical Maintenance Supervisor No February 22 12:30pm Advance Directive Response Recorded Date/ Time Advance Directives No February 23 8:55am Living Will No September 05 9:14pm Power of Mechanical Maintenance Supervisor No September 05 9:14pm Advance Directive Response Recorded Date/ Time Advance Directives No February 23 7:55am Living Will No November 18 1:54pm Power of Mechanical Maintenance Supervisor No November 18, 2022 1:54pm Advance Directive Response Recorded Date/ Time Advance Directives No February 23 7:55am Living Will No January 21 12:06pm Power of Mechanical Maintenance Supervisor No January 21, 2023 12:06pm Advance Directive Response Recorded Date/ Time Advance Directives No February 23 8:55am Living Will No March 22, 2023 6:38pm Power of Mechanical Maintenance Supervisor No March 22 6:38pm Advance Directive Response Recorded Date/ Time Advance Directives No February 23 8:55am Living Will No April 09, 2023 1 0:50pm Power of Mechanical Maintenance Supervisor No April 09, 2023 10:50pm Advance Directive Response Recorded Date/ Time Advance Directives No February 23 8:55am Living Will No April 10, 2023 3 :53am Power of Mechanical Maintenance Supervisor No April 10, 2023 3:53am Advance Directive Response Recorded Date/ Time Advance Directives No February 23 8:55am Living Will No May 04, 2023 9 :16pm Power of Mechanical Maintenance Supervisor No May 04, 2023 9:16pm Advance Directive Response Recorded Date/ Time Advance Directives No February 23 8:55am Living Will No May 24, 2023 9:36pm Power of Mechanical Maintenance Supervisor No May 24 9:36pm Advance Directive Response Recorded Date/ Time Advance Directives No February 23 8:55am Living Will No July 29 2:27pm Power of Mechanical Maintenance Supervisor No July 29 2:27pm Advance Directive Response Recorded Date/ Time Advance Directives No February 23 8:55am Living Will No August 23, 2023 12:07pm Power of Mechanical Maintenance Supervisor No July 12:07pm Advance Directive Response Recorded Date/ Time Advance Directives No February 23 7:55am Living Will No October 10 4:19pm Power of Mechanical Maintenance Supervisor No October 10, 2023 4:19pm Advance Directive Response Recorded Date/ Time Advance Directives No February 23 8:55am Living Will No January 24 5:38pm Power of Mechanical Maintenance Supervisor No January 24, 2024 5:38pm Advance Directive Response Recorded Date/ Time Do you have a Healthcare Power of Mechanical Maintenance Supervisor? No April 04, 2025 11:50am Advance Directives No July 2:01pm Advance Directive Response Recorded Date/ Time Do you have a Healthcare Power of Mechanical Maintenance Supervisor? No April 11, 2025 10:12pm Do you have a Healthcare Power of Mechanical Maintenance Supervisor? No April 04, 2025 11:50am Advance Directives No July 2:01pm Advance Directive Response Recorded Date/ Time Do you have a Healthcare Power of Mechanical Maintenance Supervisor? No April 11, 2025 10:12pm Do you have a Healthcare Power of Mechanical Maintenance Supervisor? No April 04, 2025 11:50am Do you have a Healthcare Power of Mechanical Maintenance Supervisor? No April 26, 2025 1:50pm Advance Directives No July 2:01pm Advance Directive Response Recorded Date/ Time Do you have a Healthcare Power of Mechanical Maintenance Supervisor? No April 11, 2025 10:12pm Do you have a Healthcare Power of Mechanical Maintenance Supervisor? No April 04, 2025 11:50am Do you have a Healthcare Power of Mechanical Maintenance Supervisor? No April 26, 2025 6:15pm Advance Directives No July 2:01pm Advance Directive Response Recorded Date/ Time Do you have a Healthcare Power of Mechanical Maintenance Supervisor? No April 11, 2025 10:12pm Do you have a Healthcare Power of Mechanical Maintenance Supervisor? No April 04, 2025 11:50am Do you have a Healthcare Power of Mechanical Maintenance Supervisor? No April 26, 2025 6:15pm Do you have a Healthcare Power of Mechanical Maintenance Supervisor? No May 24, 2025 11:48pm Advance Directives No July 2:01pm Advance Directive Response Recorded Date/ Time Do you have a Healthcare Power of Mechanical Maintenance Supervisor? No April 11, 2025 10:12pm Do you have a Healthcare Power of Mechanical Maintenance Supervisor? No April 04, 2025 11:50am Do you have a Healthcare Power of Mechanical Maintenance Supervisor? No April 26, 2025 6:15pm Do you have a Healthcare Power of Mechanical Maintenance Supervisor? No May 25, 2025 2:53am Advance Directives No July 2:01pm Advance Directive Response Recorded Date/ Time Do you have a Healthcare Power of Mechanical Maintenance Supervisor? No April 11, 2025 10:12pm Do you have a Healthcare Power of Mechanical Maintenance Supervisor? No July 17, 2025 10:29am Do you have a Healthcare Power of Mechanical Maintenance Supervisor? No April 04, 2025 11:50am Do you have a Healthcare Power of Mechanical Maintenance Supervisor? No April 26, 2025 6:15pm Do you have a Healthcare Power of Mechanical Maintenance Supervisor? No May 25, 2025 2:53am Advance Directives No July 2:01pm Advance Directive Response Recorded Date/ Time Do you have a Healthcare Power of Mechanical Maintenance Supervisor? No April 11, 2025 10:12pm Do you have a Healthcare Power of Mechanical Maintenance Supervisor? No July 17, 2025 1:34pm Do you have a Healthcare Power of Mechanical Maintenance Supervisor? No April 04, 2025 11:50am Do you have a Healthcare Power of Mechanical Maintenance Supervisor? No April 26, 2025 6:15pm Do you have a Healthcare Power of Mechanical Maintenance Supervisor? No May 25, 2025 2:53am Advance Directives No July 2:01pm Advance Directive Response Recorded Date/ Time Do you have a Healthcare Power of Mechanical Maintenance Supervisor? No July 17, 2025 1:34pm Do you have a Healthcare Power of Mechanical Maintenance Supervisor? No August 12, 2025 8:21am Do you have a Healthcare Power of Mechanical Maintenance Supervisor? No April 26, 2025 6:15pm Do you have a Healthcare Power of Mechanical Maintenance Supervisor? No May 25, 2025 2:53am Advance Directives No July 2:01pm Advance Directive Response Recorded Date/ Time Do you have a Healthcare Power of Mechanical Maintenance Supervisor? No July 17, 2025 1:34pm Do you have a Healthcare Power of Mechanical Maintenance Supervisor? No August 12, 2025 1:20pm Do you have a Healthcare Power of Mechanical Maintenance Supervisor? No April 26, 2025 6:15pm Do you have a Healthcare Power of Mechanical Maintenance Supervisor? No May 25, 2025 2:53am Advance Directives [...] 2025 5:13p m [facility] 25, 2025 12:33am Chief Complaint [...] m Admitted to alcohol detoxification [facility] May 25, 2025 12:33am Abdominal pain July [...] m Admitted to alcohol detoxification [facility] May 25, 2025 12:33am History of diabetes [...] section and content) DATE CREATED AUTHOR 06/16/2021 [facility] DATE CREATED AUTHOR AUTHOR'S ORGANIZ ATION 04/24/2024 [facility] DATE CREATED AUTHOR AUTHOR'S ORGANIZ ATION 08/23/2025 [facility] Goals (unrecognized section and content) Goals [...] or prosecute any alcohol or drug abuse patient.[facility] the event this information is protected by the Federal Confidentiality of Alcohol and Drug Abuse Patient Records regulations: The Federal rules restrict any use of the information to criminally investigate or prosecute any alcohol or drug abuse patient.[facility] Hospital[facility] the event this information is protected by the Federal Confidentiality of Alcohol and Drug Abuse Patient Records regulations: The Federal rules restrict any use of the information to criminally investigate or prosecute any alcohol or drug abuse patient.[facility] Reason for Visit (unrecogniz ed section and content) Reason Comments left hip pain X 3 days-cannot reca ll an injury Reason Comments Sinus Problem Nasal congestion, dr garland slight sore throat, nausea, cough, wheezing x 1 day Care Teams (unrecognized sec tion and content) Virtual Classroom Manager Relationship Specialty Start Date End Date Ihsan [...] Team Status: Active Member Role Status Dates iMlana Garcia , DO Primary Care Provider Active [...] Care Provider, Referring Provider Active Jim Manriquez NEEDLE PUNCH 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 HELPER, NEEDLE PUNCH 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 HELPER-C Attending Provider Active Team Status: Inactive Member [...] DO Primary Care Provider Active Jim Manriquez NEEDLE PUNCH 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 HELPER, NEEDLE PUNCH 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 HELPER-C Attending Provider, Referring P ty Active Team [...] Attending Provider, Referring Provider Active Jim Manriquez NEEDLE PUNCH 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 HELPER, NEEDLE PUNCH 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 HELPER-C Other Provider Active Team Status: Inactive Member [...] , Primary Care Provider Active Dr. Jose aTylor MD Attending Provider Active Virtual Classroom Manager Relationship Specialty Start Date End Date LaurenIhsan gonzalez DO PCP - General Family Medicine 10/22/20 Virtual Classroom Manager Relationship Specialty Start Date End Date LaurenIhsan DO PCP - General Family Medicine 10/22/20 Team Status: Active Member Role Status Goivanna Haley MD Primary Care Provider Active Team [...] St art: April 26, 2025 Dr. Julius Mnocada MD Attending Provider Active Start: April 26, [...] Provider Active Start: May 04, 2025 Dr. aCnelo Myers MD Other Provider Active Star t: [...] Active St art: May 01, 2025 Dr. uJlius Moncada MD Other Provider Active St art: [...] St art: May 05, 2025 Dr. Mao Becekr DO Attending Provider Active Start: May 05, [...] St art: May 06, 2025 Dr. Julius Moncdaa MD Other Provider Active St art: May [...] Active Start: July 20, 2025 Dr. Canelo Meyrs MD Other Provider Active Star t: July [...] Active S tart: April 28, 2025 Dr. Hupmhrey Garcia DO Emergency Department Physician A ctive [...] Active S tart: May 01, 2025 Dr. Humphrye Garcia DO Emergency Department Physician A ctive [...] BE BASED ON THE PRIMARY CLINICAL RECORDS. [employer] provides no warranty or guarantee of the accuracy or completeness of information in this document.
[2025-11-18 07:22] LABS: Color, Urine Yellow (Yellow); Glucose, Dipstick Normal (Normal); Leukocyte Esterase-Dipstick 25 /ul (Negative); Nitrite-Dipstick Negative (Negative); Occult Blood-Urine 10 /ul (Negative); Protein-Dipstick 30 mg/dl (Negative); Specific Gravity, Urine 1.015 (1.002-1.030)
[2025-11-18 07:44] LABS: Urine Bilirubin Dipstick 1 mg/dL (Negative)
[2025-11-18 07:45] LABS: Ketone-Dipstick 150 mg/dl (Negative)
[2025-11-18 07:48] LABS: Mucous, Urine 1+ /hpf (<or=2+); Red Blood Cells-Urine 0-5 SEEN /hpf (0-5); Squamous Epithelial Cells - UA 10-25 SEEN /hpf (5-10)
[2025-11-18 07:52] LABS: AST(SGOT) 31 U/L (<=31); Alanine Aminotransfer ALT/SGPT 11 U/L (<=34); Albumin, Serum 3.1 g/dL (3.5-5.0); Alkaline Phosphatase 99 U/L (35-104); Anion Gap 17 (5-15); BUN 7 mg/dL (4-19); BUN/Creat Ratio 17.1 RATIO (10-20); Calcium,Total 8.0 mg/dL (7.6-11.0); Carbon Dioxide 28.7 mmol/L (21.0-32.0); Chloride 90 mmol/L (98-108); Estimated Creatinine Clearance 141.45 ml/min (50-250); Globulin 3.0 g/dL (2.2-4.2); Glucose 163 mg/dL (70-99); Potassium 2.9 mmol/L (3.3-5.1)
[2025-11-18 08:03] LABS: Lipase 753 U/L (13-75)
[2025-11-18] MEDS: Magnesium Sulfate 2 GM in Dextrose 5%-Water (100mL Bag) 100 ML IV ×2 (08:37→13:31)
[2025-11-18 08:39] LABS: SITE Not entered; VBG BASE EXCESS 9 mmol/L (-1.0-3.5); VBG PO2 20 mmHg (25-40); VBG SO2 34 % (50-70); VBG TCO2 34 mmol/L (23-33)
[2025-11-18 08:45] LABS: Magnesium 0.9 mg/dL (1.5-2.2)
--- NOTE | 2025-11-18 09:06 | HP.PCM.HOS_ITS ---
HPI - General General Date of Admission: 11/18/25 Date of Service: 11/18/25 Chief Complaint: Abdominal pain and nausea with vomiting HPI Gillian RINCON, is a 50 F who presented to [facility] ED on 11/18/2025 with abdominal pain and nausea with vomiting. Medical history significant for alcohol abuse, chronic alcoholic pancreatitis, history of CAD with stenting, hypertension, hyperlipidemia, anxiety/depression, and type 2 diabetes mellitus. Patient was seen in the ED here initially on 11/[address] abdomen pelvis showed ongoing inflammatory changes of acute on chronic pancreatitis compared to CT from 11/03, no evidence for necrosis or fluid collections. Lipase was 164. Patient was volume resuscitated in the ED and given medication for pain control with some improvement in symptoms, so she was discharged home. However, she has had worsening pain over the past few days and continued nausea with vomiting and poor p.o. intake, so she came back in for further evaluation. Repeat CT abdomen pelvis showed interval increase in peripancreatic fluid compared to 2 days ago, and lipase was much more elevated at 753. Patient was given 2 L of IV fluids and medications for pain and nausea control ED, and hospitalist was contacted for admission. I saw the patient at bedside in the ED, significant other was present. Patient was sitting back in bed and only appeared mildly uncomfortable currently. She noted that the pain medications given in the ED have been helpful for her. She denied any nausea currently but has not tried to eat or drink anything for the past 2 days. Notes that she has not had any alcohol for about 3 weeks now. No other acute concerns at this time. Will be admitted for further management. [facility] Medical History Admitted to alcohol detoxification center Pancreatitis Hypokalemia Nausea & vomiting Intractable abdominal pain Strain of left foot Plantar fasciitis of left foot Acute otitis media, right Contact with or exposure to other viral diseases URI (upper respiratory infection) Alcohol abuse GERD (gastroesophageal reflux disease) CPAP (continuous positive airway pressure) dependence Smoker COPD (chronic obstructive pulmonary disease) Myocardial infarct Seizures History of left heart catheterization (LHC) (~11/19/22) Sleep apnea Pancreatitis Acute lumbar myofascial strain Strain of left hip Depression Anxiety Diabetes HTN (hypertension) Type 2 diabetes mellitus Home Medications ?Medication ?Instructions ?Recorded ?Last Taken ?Type metformin 500 mg tablet 500 ea PO BID DIABETES 10/3111/02/25 History aspirin 81 mg chewable tablet 81 mg PO DAILY@0800 [facility] 11/19/22 11/02/25 Rx #30 tabs bupropion HCl 150 mg 24 hr tablet, 150 mg PO DAILY [facility] 01/21/23 11/02/25 History extended release montelukast 10 mg tablet 10 mg PO DAILY allergies 11/2011/02/25 History (Singulair) cholecalciferol (vitamin D3) 50 50 mcg PO DAILY vitami n 08/25/23 11/02/25 History mcg (2,000 unit) capsule empagliflozin 25 mg tablet 25 mg PO DAILY diabetes 11/02/25 History (Jardiance) metoprolol succinate 25 mg 25 mg PO DAILY blood pressu re 11/12/24 11/02/25 History tablet,extended release 24 hr amlodipine 5 mg tablet 5 mg PO DAILY blood pressure 04/04/25 11/02/25 History buspirone 5 mg tablet 5 mg PO TID PRN anxiety 06/2211/02/25 History hydroxyzine HCl 10 mg tablet 10 mg PO Q8H PRN anxiety 04/04/25 11/02/25 History levocetirizine 5 mg tablet 5 mg PO DAILY allergies 11/02/25 History lisinopril 40 mg tablet 40 mg PO DAILY blood pressur e 04/11/25 11/02/25 History budesonide-formoterol HFA 160 2 puff inhalation BID SO B 04/26/25 11/02/25 History mcg-4.5 mcg/actuation aerosol inhaler atorvastatin 40 mg tablet 40 mg PO QHS cholesterol 11/02/25 History fluoxetine 40 mg capsule 40 mg PO DAILY mental health 07/17/25 11/02/25 History lorazepam 1 mg tablet 1 mg PO BID PRN anxiety 07/3008/11/25 History pantoprazole 40 mg tablet,delayed 40 mg PO DAILY 30 da ys #30 tabs 08/15/25 11/02/25 Rx release hydrocodone-acetaminophen 5-325mg 1 tab PO Q6H PRN PRN Pain 3 days 11/03/25 Unknown Rx 5mg-325mg #12 TABLETS potassium chloride 20 mEq 20 meq PO TID #20 tabs 11/16 Unknown Rx tablet,extended release(part/cryst) Allergy/AdvReac Type Severity Reaction Status Date / Time No Known Allergies Allergy Verified 11/18/25 06:26 Family History Grandfather CVA (cerebral vascular accident) Diabetes Mother Cancer Father Hypertension Grandmother Hypertension Diabetes Surgical History History of cholecystectomy H/O tooth extraction plantar fasciitis release Social History household members: spouse and children housing: house pets and animals: Yes Smoking Status: Light Smoker (<10/day) alcohol intake: current alcohol intake frequency: 3 or more drinks per day Alcohol type: hard liquor details: At least 1/5 vodka daily, recently increased EtOH intake. substance use type: does not use ROS Constitutional Constitutional: Denies chills, fatigue, fever(s) or weakness Cardiovascular Cardiovascular: Denies chest pain Respiratory/Chest Respiratory/Chest: Denies shortness of breath at rest Gastrointestinal Gastrointestinal: Reports abdominal pain, nausea and vomiting; Denies constipation or diarrhea Musculoskeletal Musculoskeletal: Denies arthralgias or myalgias Neurologic Neurologic: Denies dizziness, focal weakness or headache(s) Patient's Goals Of Care . What matters most to you about your health?: Feeling well What would you like to achieve or improve as a result of your hospital stay?: F eel better, improvement in abdominal pain and nausea/vomiting Vital Signs Vital Signs Vital Signs: 11/18/25 06:22 11/18/25 08:43 Temperature 98.2 F Temperature Source Oral Pulse Rate 120 H 105 H Respiratory Rate 22 H 16 Blood Pressure 179/104 H 206/99 H Blood Pressure Mean 129 134 Pulse Ox 95 99 Oxygen Delivery Method Room Air Room Air Weight Weight: 54.8 kg Body Mass Index (BMI) 20.7 Physical Exam Const alert, oriented x3, no apparent distress and average body habitus Constitutional Narrative: Middle-age female, mildly fatigued and uncomfortable appearing due to ongoing abdominal pain and nausea, otherwise sitting back in bed and conversing normally, in no acute distress. General Appearance: cooperative HEENT normocephalic, head/scalp atraumatic, hearing grossly normal bilaterally, nasal mucous membranes and turbinates normal and moist oral mucous membranes Eyes PERRL, EOMs intact bilaterally and conjunctivae normal Neck full ROM Chest inspection of chest normal Resp normal respiratory effort, normal air movement, no use of accessory muscles and clear to auscultation bilaterally Cardio regular rate, regular rhythm, no murmurs and peripheral pulses 2+ throughout GI GI Narrative: Moderate tenderness to palpation in epigastric area noted. Abdomen otherwise soft and nondistended. Back/Spine normal ROM Extremity normal to inspection, full ROM and no pedal edema Skin no rashes or lesions noted Psych mental status grossly normal Results Lab / Micro Data 11/18/25 06:30 11/18/25 07:05 Labs: Laboratory Results - last 24 hr 11/18/25 06:30: WBC 15.0 H, RBC 3.89 L, Hgb 13.4, Hct 39.7, MCV 102.1 H, MCH 34.4 H, MCHC 33.8, RDW Std Deviation 50.6 H, RDW Coeff of Braxton 13.5, Plt Count 278, MPV 9.6, Immature Gran % (Auto) 0.500, Neut % (Auto) 89.0 H, Lymph % (Auto) 5.7 L, [place] % (Auto) 4.3, Eos % (Auto) 0.2, Baso % (Auto) 0.3, Absolute Neuts (auto) 13.3 H, Absolute Lymphs (auto) 0.85, Nucleated RBC % 0.1, Sodium Cancelled, Potassium Cancelled, Chloride Cancelled, Carbon Dioxide Cancelled, Anion Gap Cancelled, BUN Cancelled, Creatinine Cancelled, Estim Creat Clear Calc Cancelled, Est GFR (MDRD) Non-Af Cancelled, BUN/Creatinine Ratio Cancelled, Glucose Cancelled, Calcium Cancelled, Total Bilirubin Cancelled, AST Cancelled, ALT Cancelled, Alkaline Phosphatase Cancelled, Total Protein Cancelled, Albumin Cancelled, Globulin Cancelled, Albumin/Globulin Ratio Cancelled, Lipase Cancelled 11/18/25 06:32: Lactic Acid 1.2 11/18/25 07:05: Sodium 136, Potassium 2.9 L, Chloride 90 L, Carbon Dioxide 28.7, Anion Gap 17 H, BUN 7, Creatinine 0.42 L, Estim Creat Clear Calc 141.45, Est GFR (MDRD) Non-Af 121, BUN/Creatinine Ratio 17.1, Glucose 163 H, Calcium 8.0, M agnesium 0.9 L*, Total Bilirubin 1.18, AST 31, ALT 11, Alkaline Phosphatase 99, Total Protein 6.1, Albumin 3.1 L, Globulin 3.0, Albumin/Globulin Ratio 1.0, L ipase 753 H 11/18/25 07:13: Urine Color Yellow, Urine Clarity Sl. Cloudy, Urine pH 6.5, Ur Specific [place] 1.015, Urine Protein 30 H, Urine Glucose (UA) Normal, Urine Ketones 150 A*, Urine Occult Blood 10 H, Urine Nitrite Negative, Urine Bilirubin 1 H, Urine Urobilinogen 4 H, Ur Leukocyte Esterase 25 H, Urine RBC 0-5 SEEN, Urine WBC 0-5 SEEN, Ur Squamous Epith Cells 10-25 SEEN, Urine Bacteria 2+, Urine Mucus 1+ ABG Data ABG results: ABG 11/18/25 08:35 Specimen Type GELACIO Sample Site Not entered VBG pH 7.47 H VBG pO2 20 L VBG HCO3 33 H VBG Total CO2 34 H VBG O2 Sat (Calc) 34 L VBG Base Excess 9 H POC Mix VBG pCO2 Pt Tmp 45.8 O2 Delivery Device Not entered Crit Call To/Read Back Yes Imaging Radiology Impression Abdomen/Pelvis CT 11/18/25 06:27 IMPRESSION: 1. Compared to CT of the abdomen and pelvis 11/16/2025, interval increase in peripancreatic fluid. Findings again compatible with acute edematous pancreatitis. No evidence of pancreatic necrosis. 2. Persistent abdominopelvic ascites. 3. Hepatic steatosis. 4. No other significant changes. Reading Location: [id number] Assessment & Plan Assessment/Plan (1) Acute on chronic pancreatitis: PLAN: Plan Patient is a 50-year-old female who presented to [facility] ED on 11/18/2025 with abdominal pain and nausea with vomiting. 1. Recurrent acute on chronic pancreatitis ? Admit under inpatient status to [facility]. CT abdomen pelvis on admit with interval increase in peripancreatic fluid compared to CT from 11/16, as well as ongoing acute on chronic pancreatitis findings; notably no fluid collections or necrosis noted. Lipase 753. Last alcoholic drink 3 weeks ago as below. Given 2 L of IV fluids in the ED. Will treat with maintenance IV fluids and pain control as needed. Okay for clear liquid diet for now, will escalate as able. Can consider GI consult as needed. 2. Hypokalemia, hypomagnesemia ? Potassium 2.9, magnesium 0.9 on admit. Given 40 mEq of potassium and 4 g of magnesium on admit. Has history of chronic hypokalemia. Continue home potassium supplement. Monitor daily labs. 3. Alcohol abuse ? Last drink 3 weeks ago per patient. No evidence of withdrawal on admit. Hold off on CIWA protocol at this time. Encourage continued alcohol cessation on discharge. Chronic medical conditions: ? History of CAD with stenting, hypertension, hyperlipidemia: Hypertensive to the 180s to 190s systolic and mild sinus tachycardia to the 100s on admit, suspected largely due to pancreatitis as above. Continue home aspirin, statin, amlodipine, and lisinopril. IV hydralazine ordered as needed for SBP greater than 170; will ensure adequate pain control prior to giving hydralazine as needed. ? Type 2 diabetes mellitus: Most recent A1c 5.2% on 08/13. Has previously been only mildly elevated to 6.7. Given this, will hold off on [id number] glucose checks or sliding scale insulin at this time. Will hold home metformin and Jardiance as well. ? COPD: Stable on room air, not in acute exacerbation. Continue home inhalers. ? Anxiety/depression: Stable. Continue home bupropion, fluoxetine and BuSpar. ? GERD: Continue home PPI. ? Seasonal allergies: Continue home Singulair and cetirizine. DVT prophylaxis: Lovenox CODE STATUS: Full code, verified Expected disposition: Home, TBD Total clinical time spent by myself addressing the patient's medical issues, reviewing all the data, and collaborating with patient's care team: 77 minutes. Charges/Coding Visit Charges Inpatient E&M: 23258 Init Hosp L3
[2025-11-18] MEDS: Potassium Chloride 10mEq/100mL 10 MEQ/100 ML IV.SOLN. 100 MEQ IV BOLUS ×4 (09:07→12:45)
--- OUTSIDE RECORDS SUMMARY | 2025-11-18 09:42 | XMS RPT_ITS | CCD ---
Author Organization [facility] CliniSyms Care Team Providers Care Design Architect Name Role Phone Required, No Pcp Unavailable Unavailable MikoNoe zhang Unavailable Ihsan Aguilar DO Primary Care Provider [phone] Calvin Waldrop Primary Care Provider Unavailabl e [...] Provider Dr. Young Kiran Referring Provider Ganesh EDITOR MAP, EDITOR MAP-C Jim Attending Provider Jose, DO Milana M Primary Care Provider Jose, DO Milana M Referring Provider Beau SMITH PA [place] Attending Provider Ojse, DO Milana M Primary Care Provider Jose, DO Milana M Primary Care Provider Jose, DO Milana M Referring Provider LUIS Rosario Attending Provider Ganesh EDITOR MAP, EDITOR MAP-C Jim Attending Provider LUIS Gramajo Attending Provider Jose, DO Milana M Primary Care Provider Jose, DO Milana M Referring Provider LUIS Gramajo Attending Provider Dr. Jose Taylor Attending Provider Ihsan Aguilar DO Primary Care Provider [phone] IHSAN AGUILAR Primary Care Unavailable Sudha LEBLANC, Abisai Primary Care Provider Dr. Imani Knight DO Emergency Provider Dr. Imani Knight DO Attending Provider Dr. Francisco Colon MD Emergency Provider Dr. Francisco Colon MD Attending Provider Dr. Humphrey Garcia DO Referring Provider Dr. Humphrey Garcia DO Emergency Provider Antwan LEBLANC, Dr. [place] Ad[facility] Attending Provider Dashawn Moncada MD, Dr. [place] Other Provider Unavailab rob Becker DO, Dr. Cavanaugh Attending Provider Lucia LEBLANC, Dr. Lemos Other Provider Unavailable Antwan LEBLANC, Dr. [place] Attending Provider Dashawn Myers MD, Dr. Lemos Attending Provider Unavaila tommie Becker DO, Dr. Cavanaugh [facility] Dr. Morales Emergency Provider Chaka [...] Drug Class(es) Dates Sig (Normalized) Sig (Original) [id number] 200 actuat albuterol 0.09 mg/actuat metered dose [...] tablet (2 sources) Opioid Antagonist Start: 5 Bedford-3 Fatty Acids (3 sources) Start: 3 take 1000 mg by mouth once daily Bedford-3 Fatty Acids Active 1000 MG PO DAILY August 24, 2023 11:00pm Start: 08-25-2023 take 1000 mg by mouth once colleen ly Bedford-3 Fatty Acids Active 1000 MG PO DAILY [...] 20 mg/ml oral solution (16 sources) Uncompetitive P-bmmtsr-U-aspartate Receptor Antagonist, Sigma-1 Agonist Start: 07-01-2023 End: [...] 17, 2023 12:00am February 18, 2023 12:05am Bedford-3 Fatty Acids 1,000 mg capsule (6 sources) Start: 08-25-2023 End: 05-06-2025 take 1 capsule by mouth once daily Bedford-3 Fatty Acids 1,000 mg capsule Discontinued 1000 mg PO DAILY August 25, 2023 12:00am May 06, 2025 1:18pm Start: 08-25-2023 take 1 capsule by mo [facility] once daily Bedford-3 Fatty Acids 1,000 mg capsule Active 1000 [...] Comment on above: Take 1 tablet by [facility] every 6 hours as needed for Nausea/Vomiting. [...] 08-23-2025 Ionized Calcium 1.01 mmol/L Low 1.09-1.30 [facility] Comment on above: Performed By: #### L 501.2276, L501.6901 ####[facility] [address] [place], [address] Liver Profileon 08-16-2025 ALB Normal 3.5-5.0 [facility] Comment on above: Result Comment: Canc elled via OM: Order cancelled - Patient discharged Performed By: #### L 500.3400 ####[facility] [address] [place], [address] ALK PHOS Normal 35-104 [facility] Comment on above: Result Comment: Canc elled via OM: Order cancelled - Patient discharged Performed By: #### L 500.3400 ####[facility] [address] [place], [address] ALT Normal <=34 [facility] Comment on above: Result Comment: Canc elled via OM: Order cancelled - Patient discharged Performed By: #### L 500.3400 ####[facility] [address] [place], [address] AST Normal <=31 [facility] Comment on above: Result Comment: Canc elled via OM: Order cancelled - Patient discharged Performed By: #### L 500.3400 ####[facility] [address] [place], [address] D BILI Normal 0.00-0.30 [facility] Comment on above: Result Comment: Canc elled via OM: Order cancelled - Patient discharged Performed By: #### L 500.3400 ####[facility] [address] [place], [address] T BILI Normal 0.00-1.30 [facility] Comment on above: Result Comment: Canc elled via OM: Order cancelled - Patient discharged Performed By: #### L 500.3400 ####[facility] [address] [place], [address] T PROT Normal 5.9-8.4 [facility] Comment on above: Result Comment: Canc elled via OM: Order cancelled - Patient discharged Performed By: #### L 500.3400 ####[facility] [address] [place], [address] Anion gap in Serum or Plasma Ordered By: Zev Tucker on 08-15-2025 Anion gap [Moles/Vol] 11 mmol/L 5-15 [facility] BUN/creatinine ratioOrdered By: Zev Tucker on 08-15-2025 Urea nitrogen/Creatinine [Mass ratio] 9.5 mg/mg Low 10- [facility] Basic Metabolic Profile (BMP )on 08-15-2025 BUN/CRE 9.5 RATIO Low - [facility] Comment on above: Performed By: #### L 500.3400, L500.2500 ####[facility] [address] [place], [address] Calcium [Mass/Vol] 8.1 mg/dL Normal 7.6-11.0 [facility] Comment on above: Performed By: #### L 500.3400, L500.2500 ####[facility] [address] [place], [address] Chloride [Moles/Vol] 98 mmol/L Normal 98-108 [facility] Comment on above: Performed By: #### L 500.3400, L500.2500 ####[facility] [address] [place], [address] CO2 [Moles/Vol] 31.5 mmol/L Normal 21.0-32.0 [facility] Comment on above: Performed By: #### L 500.3400, L500.2500 ####[facility] [address] [place], [address] Creatinine [Mass/Vol] 0.39 mg/dL Low 0.70-1.20 [facility] Comment on above: Performed By: #### L 500.3400, L500.2500 ####[facility] [address] [place], [address] ECRCL 149.83 ml/min Normal 50-250 [facility] Comment on above: Performed By: #### L 500.3400, L500.2500 ####[facility] [address] [place], [address] GAP 11 Normal 5-15 [facility] Comment on above: Performed By: #### L 500.3400, L500.2500 ####[facility] [address] [place], [address] GFR/1.73 sq M.predicted among non-blacks MDRD (S/P/Bld) [Vol rate/Area] 123 mL/min/{1.73_m2} Normal >60 [facility] Comment on above: Result Comment: mL/m in/1.73m2 CKD-EPI Creatinine Equation (2020) Performed By: #### L 500.3400, L500.2500 ####[facility] [address] [place], [address] Glucose [Mass/Vol] 162 mg/dL High 70-99 [facility] Comment on above: Performed By: #### L 500.3400, L500.2500 ####[facility] [address] [place], [address] Potassium [Moles/Vol] 3.4 mmol/L Normal 3.3-5.1 [facility] Comment on above: Performed By: #### L 500.3400, L500.2500 ####[facility] [address] [place], [address] Sodium [Moles/Vol] 140 mmol/L Normal 133-145 [facility] Comment on above: Performed By: #### L 500.3400, L500.2500 ####[facility] [address] [place], [address] Urea nitrogen [Mass/Vol] 4 mg/dL Normal 4-19 [facility] Comment on above: Performed By: #### L 500.3400, L500.2500 ####[facility] [address] [place], [address] Bedside Glucoseon 08-15-2025 FINGERSTICK GLU 241 mg/dL High 74-106 [facility] Comment on above: Result Comment: CHAUNCEY GEMENT OF PATIENT CARE PER NURSING PROTOCOL Performed By: #### L 501.080 ####[facility] [address] [place], [address] FINGERSTICK GLU 268 mg/dL High -106 [facility] Comment on above: Result Comment: CHAUNCEY GEMENT OF PATIENT CARE PER NURSING PROTOCOL Performed By: #### L 501.080 ####[facility] [address] [place], [address] FINGERSTICK GLU 179 mg/dL High -106 [facility] Comment on above: Result Comment: CHAUNCEY GEMENT OF PATIENT CARE PER NURSING PROTOCOL Performed By: #### L 501.080 ####[facility] [address] [place], [address] Bilirubin directOrdered By: Zev Tucker on 08-15-2025 Bilirubin.direct [Mass/Vol] 0.72 mg/dL High 0.00-0.30 [facility] Bilirubin, totalOrdered By: Zev Tucker on 08-15-2025 Bilirubin [Mass/Vol] 1.19 mg/dL 0.00-1.30 [facility] Carbon dioxide, total [Moles /volume] in Central venous bloodOrdered By: Zev Tucker on 08-15-2025 CO2 [Moles/Vol] 31.5 mmol/L 21.0-32.0 [facility] Chloride assayOrdered By: Maria Anotnia Tucker on 08-15-2025 Chloride [Moles/Vol] 98 mmol/L 98-108 [facility] Culture, Blood (WB)on 2024 CUB Normal [facility] Comment on above: Performed By: #### L 500.2500, L501.2300, M200.1000 ####[facility] [address] [place], [address] Discharge Instructionon 07-30 Discharge Instruction Normal [facility] Glomerular filtration rate ( GFR) estimation/1.73 sq m using serum, plasma, or whole bOrdered By: Zev Tucker on 08-15-2025 GFR/1.73 sq M.predicted among non-blacks MDRD (S/P/Bld) [Vol rate/Area] 123 mL/min/{1.73_m2} >60 [facility] deOrdered By: Zev Tucker on 08-15-2025 Glucose [Mass/Vol] 241 mg/dL High 74-106 [facility] Liver Profileon 08-15-2025 Albumin [Mass/Vol] 3.1 g/dL Low 3.5-5.0 [facility] Comment on above: Performed By: #### L 500.3400, L500.2500 ####[facility] [address] [place], [address] ALK PHOS 344 U/L High 35-104 [facility] Comment on above: Performed By: #### L 500.3400, L500.2500 ####[facility] [address] [place], [address] ALT [Catalytic activity/Vol] 37 U/L High <=34 [facility] Comment on above: Performed By: #### L 500.3400, L500.2500 ####[facility] [address] [place], [address] AST [Catalytic activity/Vol] 111 U/L High <=31 [facility] Comment on above: Performed By: #### L 500.3400, L500.2500 ####[facility] [address] [place], [address] Bilirubin [Mass/Vol] 1.19 mg/dL Normal 0.00-1.30 [facility] Comment on above: Performed By: #### L 500.3400, L500.2500 ####[facility] [address] [place], [address] Bilirubin.direct [Mass/Vol] 0.72 mg/dL High 0.00-0.30 [facility] Comment on above: Performed By: #### L 500.3400, L500.2500 ####[facility] [address] [place], [address] Globulin (S) [Mass/Vol] 2.4 g/dL Normal 2.2-4.2 [facility] Comment on above: Performed By: #### L 500.3400, L500.2500 ####[facility] [address] [place], [address] T PROT 5.4 g/dL Low 5.9-8.4 [facility] Comment on above: Performed By: #### L 500.3400, L500.2500 ####[facility] [address] [place], [address] Modified Barium Swallow Stud yon 08-15-2025 Modified Barium Swallow Study Normal [facility] No Panel InformationOrdered By: Zev Tucker on 08-15-2025 111 U/L High <32 [facility] Potassium measurement (mass/ volume)Ordered By: Zev Tucker on 08-15-2025 Potassium (Unsp spec) [Mass/Vol] 3.4 mmol/L 3.3-5.1 [facility] Serum creatinine measurement (mass/volume)Ordered By: Zev Tucker on 08-15-2025 Creatinine [Mass/Vol] 0.39 mg/dL Low 0.70-1.20 [facility] Serum globulin measurementOr dered By: Zev Tucker on 08-15-2025 Globulin (S) [Mass/Vol] 2.4 g/dL 2.2-4.2 [facility] Serum glucose measurement (m ass/volume)Ordered By: Zev Tucker on 08-15-2025 Glucose [Mass/Vol] 162 mg/dL High 70-99 [facility] Serum or plasma alanine wilkerson otransferase (ALT) measurementOrdered By: Zev Tucker on 08-15-2025 ALT [Catalytic activity/Vol] 37 U/L High <35 [facility] Serum or plasma albumin alphonso urement (mass/volume)Ordered By: Zev Tucker on 08-15-2025 Albumin [Mass/Vol] 3.1 g/dL Low 3.5-5.0 [facility] Serum or plasma alkaline trinity sphatase measurementOrdered By: Zev Tucker on 08-15-2025 ALP [Catalytic activity/Vol] 344 U/L High 35-104 [facility] Serum or plasma calcium alphonso urement (mass/volume)Ordered By: Zev Tucker on 08-15-2025 Calcium [Mass/Vol] 8.1 mg/dL 7.6-11.0 [facility] Serum or plasma urea nitroge n measurement (mass/volume)Ordered By: Zev Tucker on 08-15-2025 Urea nitrogen [Mass/Vol] 4 mg/dL 4-19 [facility] Sodium levelOrdered By: Tessa Tucker on 08-15-2025 Sodium [Moles/Vol] 140 mmol/L 133-145 [facility] Total proteinOrdered By: Candice Tucker on 08-15-2025 Protein [Mass/Vol] 5.4 g/dL Low 5.9-8.4 [facility] Basic Metabolic Profile (BMP )on 08-14-2025 BUN/CRE 7.8 RATIO Low 10-20 [facility] Comment on above: Performed By: #### L 500.3400, L501.5200, L500.2500 ####[facility] [address] [place], [address] Calcium [Mass/Vol] 7.8 mg/dL Normal 7.6-11.0 [facility] Comment on above: Performed By: #### L 500.3400, L501.5200, L500.2500 ####[facility] [address] [place], [address] Chloride [Moles/Vol] 96 mmol/L Low 98-108 [facility] Comment on above: Performed By: #### L 500.3400, L501.5200, L500.2500 ####[facility] [address] [place], [address] CO2 [Moles/Vol] 30.8 mmol/L Normal 21.0-32.0 [facility] Comment on above: Performed By: #### L 500.3400, L501.5200, L500.2500 ####[facility] [address] [place], [address] Creatinine [Mass/Vol] 0.44 mg/dL Low 0.70-1.20 [facility] Comment on above: Performed By: #### L 500.3400, L501.5200, L500.2500 ####[facility] [address] [place], [address] ECRCL 135.02 ml/min Normal 50-250 [facility] Comment on above: Performed By: #### L 500.3400, L501.5200, L500.2500 ####[facility] [address] [place], [address] GAP 13 Normal 5-15 [facility] Comment on above: Performed By: #### L 500.3400, L501.5200, L500.2500 ####[facility] [address] [place], [address] GFR/1.73 sq M.predicted among non-blacks MDRD (S/P/Bld) [Vol rate/Area] 119 mL/min/{1.73_m2} Normal >60 [facility] Comment on above: Result Comment: mL/m in/1.73m2 CKD-EPI Creatinine Equation (2020) Performed By: #### L 500.3400, L501.5200, L500.2500 ####[facility] [address] [place], [address] Glucose [Mass/Vol] 131 mg/dL High 70-99 [facility] Comment on above: Performed By: #### L 500.3400, L501.5200, L500.2500 ####[facility] [address] [place], [address] Potassium [Moles/Vol] 3.0 mmol/L Low 3.3-5.1 [facility] Comment on above: Performed By: #### L 500.3400, L501.5200, L500.2500 ####[facility] [address] [place], [address] Sodium [Moles/Vol] 140 mmol/L Normal 133-145 [facility] Comment on above: Performed By: #### L 500.3400, L501.5200, L500.2500 ####[facility] [address] [place], [address] Urea nitrogen [Mass/Vol] 3 mg/dL Low 4-19 [facility] Comment on above: Performed By: #### L 500.3400, L501.5200, L500.2500 ####[facility] [address] [place], [address] Bedside Glucoseon 08-14-2025 FINGERSTICK GLU 177 mg/dL High 74-106 [facility] Comment on above: Result Comment: CHAUNCEY GEMENT OF PATIENT CARE PER NURSING PROTOCOL Performed By: #### L 501.080 ####[facility] [address] [place], [address] FINGERSTICK GLU 112 mg/dL High 74-106 [facility] Comment on above: Result Comment: CHAUNCEY GEMENT OF PATIENT CARE PER NURSING PROTOCOL Performed By: #### L 501.080 ####[facility] [address] [place], [address] FINGERSTICK GLU 223 mg/dL High 74-106 [facility] Comment on above: Result Comment: CHAUNCEY GEMENT OF PATIENT CARE PER NURSING PROTOCOL Performed By: #### L 501.080 ####[facility] [address] [place], [address] FINGERSTICK GLU 138 mg/dL High 74-106 [facility] Comment on above: Result Comment: CHAUNCEY GEMENT OF PATIENT CARE PER NURSING PROTOCOL Performed By: #### L 501.080 ####[facility] [address] [place], [address] Consultation - Infectious Dx on 08-14-2025 Consultation - Infectious Dx Normal [facility] Liver Profileon 08-14-2025 Albumin [Mass/Vol] 3.1 g/dL Low 3.5-5.0 [facility] Comment on above: Performed By: #### L 500.3400, L501.5200, L500.2500 ####[facility] [address] [place], [address] ALK PHOS 229 U/L High 35-104 [facility] Comment on above: Performed By: #### L 500.3400, L501.5200, L500.2500 ####[facility] [address] [place], [address] ALT [Catalytic activity/Vol] 40 U/L High <=34 [facility] Comment on above: Performed By: #### L 500.3400, L501.5200, L500.2500 ####[facility] [address] [place], [address] AST [Catalytic activity/Vol] 110 U/L High <=31 [facility] Comment on above: Performed By: #### L 500.3400, L501.5200, L500.2500 ####[facility] [address] [place], [address] Bilirubin [Mass/Vol] 1.04 mg/dL Normal 0.00-1.30 [facility] Comment on above: Performed By: #### L 500.3400, L501.5200, L500.2500 ####[facility] [address] [place], [address] Bilirubin.direct [Mass/Vol] 0.66 mg/dL High 0.00-0.30 [facility] Comment on above: Performed By: #### L 500.3400, L501.5200, L500.2500 ####[facility] [address] [place], [address] Globulin (S) [Mass/Vol] 2.6 g/dL Normal 2.2-4.2 [facility] Comment on above: Performed By: #### L 500.3400, L501.5200, L500.2500 ####[facility] [address] [place], [address] T PROT 5.6 g/dL Low 5.9-8.4 [facility] Comment on above: Performed By: #### L 500.3400, L501.5200, L500.2500 ####[facility] [address] [place], [address] Magnesiumon 08-14-2025 Magnesium [Mass/Vol] 1.9 mg/dL Normal 1.5-2.2 [facility] Comment on above: Performed By: #### L 500.3400, L501.5200, L500.2500 ####[facility] [address] [place], [address] Magnesium measurement (mass/ volume)Ordered By: Zev Tucker on 08-14-2025 Magnesium (Unsp spec) [Mass/Vol] 1.9 mg/dL 1.5-2.2 [facility] Urine Cultureon 08-14-2025 URC Below infection leve l. Mixed Gram Pos Gram Neg Org Flushing Count 1000-10,000 MIXC Mixed contaminants. Submit a new specimen if indicated. Normal [facility] Comment on above: Performed By: #### M 100.2200, M300.4600 ####[facility] [address] [place], [address] Absolute lymphocyte countOrd ered By: Zev Tucker on 08-13-2025 Lymphocytes Auto (Unsp spec) [#/Vol] 0.83 10*3/uL 0.83-4.51 [facility] Automated lymphocyte count a s percentage of total leukocytesOrdered By: Zev Tucker on 08-13-2025 Lymphocytes/100 WBC Auto (Unsp spec) 13.0 % Low 19-41 [facility] Basic Metabolic Profile (BMP )on 08-13-2025 BUN Normal 4-19 [facility] Comment on above: Result Comment: Patricia elled via OM: MD Ordered Performed By: #### L 500.2500 ####[facility] [address] [place], [address] BUN/CRE Normal 10-20 [facility] Comment on above: Result Comment: Patricia elled via OM: MD Ordered Performed By: #### L 500.2500 ####[facility] [address] [place], [address] Calcium Normal 7.6-11.0 [facility] Comment on above: Result Comment: Patricia elled via OM: MD Ordered Performed By: #### L 500.2500 ####[facility] [address] [place], [address] CL Normal 98-108 [facility] Comment on above: Result Comment: Patricia elled via OM: MD Ordered Performed By: #### L 500.2500 ####[facility] [address] [place], [address] CO2 Normal 21.0-32.0 [facility] Comment on above: Result Comment: Patricia elled via OM: MD Ordered Performed By: #### L 500.2500 ####[facility] [address] [place], [address] CREAT,SERUM Normal 0.70-1.20 [facility] Comment on above: Result Comment: Canc elled via OM: MD Ordered Performed By: #### L 500.2500 ####[facility] [address] [place], [address] eGFR Normal >60 [facility] Comment on above: Result Comment: Canc elled via OM: MD Ordered Performed By: #### L 500.2500 ####[facility] [address] [place], [address] GAP Normal 5-15 [facility] Comment on above: Result Comment: Canc elled via OM: MD Ordered Performed By: #### L 500.2500 ####[facility] [address] [place], [address] GLU Normal 70-99 [facility] Comment on above: Result Comment: Canc elled via OM: MD Ordered Performed By: #### L 500.2500 ####[facility] [address] [place], [address] Potassium Normal 3.3-5.1 [facility] Comment on above: Result Comment: Canc elled via OM: MD Ordered Performed By: #### L 500.2500 ####[facility] [address] [place], [address] Basic Metabolic Profile (BMP) Normal 133-145 [facility] Comment on above: Result Comment: Canc elled via OM: MD Ordered Performed By: #### L 500.2500 ####[facility] [address] [place], [address] BUN Normal 4-19 [facility] Comment on above: Result Comment: Canc elled via OM: MD Ordered Performed By: #### L 500.2500 ####[facility] [address] [place], [address] BUN/CRE Normal 10-20 [facility] Comment on above: Result Comment: Canc elled via OM: MD Ordered Performed By: #### L 500.2500 ####[facility] [address] [place], [address] Calcium Normal 7.6-11.0 [facility] Comment on above: Result Comment: Canc elled via OM: MD Ordered Performed By: #### L 500.2500 ####[facility] [address] [place], [address] CL Normal 98-108 [facility] Comment on above: Result Comment: Canc elled via OM: MD Ordered Performed By: #### L 500.2500 ####[facility] [address] [place], [address] CO2 Normal 21.0-32.0 [facility] Comment on above: Result Comment: Canc elled via OM: MD Ordered Performed By: #### L 500.2500 ####[facility] [address] [place], [address] CREAT,SERUM Normal 0.70-1.20 [facility] Comment on above: Result Comment: Canc elled via OM: MD Ordered Performed By: #### L 500.2500 ####[facility] [address] [place], [address] eGFR Normal >60 [facility] Comment on above: Result Comment: Canc elled via OM: MD Ordered Performed By: #### L 500.2500 ####[facility] [address] [place], [address] GAP Normal 5-15 [facility] Comment on above: Result Comment: Canc elled via OM: MD Ordered Performed By: #### L 500.2500 ####[facility] [address] [place], [address] GLU Normal 70-99 [facility] Comment on above: Result Comment: Canc elled via OM: MD Ordered Performed By: #### L 500.2500 ####[facility] [address] [place], [address] Potassium Normal 3.3-5.1 [facility] Comment on above: Result Comment: Patricia stacy via OM: Ordered Performed By: #### L 500.2500 ####[facility] [address] [place], [address] Basic Metabolic Profile (BMP) Normal 133-145 [facility] Comment on above: Result Comment: Patricia stacy via OM: Ordered Performed By: #### L 500.2500 ####[facility] [address] [place], [address] BUN/CRE 13.1 RATIO Normal 10-20 [facility] Comment on above: Performed By: #### L 501.5200, L500.2500, L100.0100, L501.9985 ####[facility] [address] [place], [address] Calcium [Mass/Vol] 6.7 mg/dL Low 7.6-11.0 [facility] Comment on above: Performed By: #### L 501.5200, L500.2500, L100.0100, L501.9985 ####[facility] [address] [place], [address] Chloride [Moles/Vol] 102 mmol/L Normal 98-108 [facility] Comment on above: Performed By: #### L 501.5200, L500.2500, L100.0100, L501.9985 ####[facility] [address] [place], [address] CO2 [Moles/Vol] 26.5 mmol/L Normal 21.0-32.0 [facility] Comment on above: Performed By: #### L 501.5200, L500.2500, L100.0100, L501.9985 ####[facility] [address] [place], [address] Creatinine [Mass/Vol] 0.64 mg/dL Low 0.70-1.20 [facility] Comment on above: Performed By: #### L 501.5200, L500.2500, L100.0100, L501.9985 ####[facility] [address] [place], [address] ECRCL 92.83 ml/min Normal 50-250 [facility] Comment on above: Performed By: #### L 501.5200, L500.2500, L100.0100, L501.9985 ####[facility] [address] [place], [address] GAP 12 Normal 5-15 [facility] Comment on above: Performed By: #### L 501.5200, L500.2500, L100.0100, L501.9985 ####[facility] [address] [place], [address] GFR/1.73 sq M.predicted among non-blacks MDRD (S/P/Bld) [Vol rate/Area] 109 mL/min/{1.73_m2} Normal >60 [facility] Comment on above: Result Comment: mL/m in/1.73m2 CKD-EPI Creatinine Equation (2020) Performed By: #### L 501.5200, L500.2500, L100.0100, L501.9985 ####[facility] [address] [place], [address] Glucose [Mass/Vol] 164 mg/dL High 70-99 [facility] Comment on above: Performed By: #### L 501.5200, L500.2500, L100.0100, L501.9985 ####[facility] [address] [place], [address] Potassium [Moles/Vol] 4.0 mmol/L Normal 3.3-5.1 [facility] Comment on above: Performed By: #### L 501.5200, L500.2500, L100.0100, L501.9985 ####[facility] [address] [place], [address] Sodium [Moles/Vol] 140 mmol/L Normal 133-145 [facility] Comment on above: Performed By: #### L 501.5200, L500.2500, L100.0100, L501.9985 ####[facility] [address] [place], [address] Urea nitrogen [Mass/Vol] 8 mg/dL Normal 4-19 [facility] Comment on above: Performed By: #### L 501.5200, L500.2500, L100.0100, L501.9985 ####[facility] [address] [place], [address] BUN/CRE 13.8 RATIO Normal 10-20 [facility] Comment on above: Performed By: #### L 500.2500 ####[facility] [address] [place], [address] Calcium [Mass/Vol] 7.2 mg/dL Low 7.6-11.0 [facility] Comment on above: Performed By: #### L 500.2500 ####[facility] [address] [place], [address] Chloride [Moles/Vol] 100 mmol/L Normal 98-108 [facility] Comment on above: Performed By: #### L 500.2500 ####[facility] [address] [place], [address] CO2 [Moles/Vol] 27.4 mmol/L Normal 21.0-32.0 [facility] Comment on above: Performed By: #### L 500.2500 ####[facility] [address] [place], [address] Creatinine [Mass/Vol] 0.90 mg/dL Normal 0.70-1.20 [facility] Comment on above: Performed By: #### L 500.2500 ####[facility] [address] [place], [address] ECRCL 62.03 ml/min Normal 50-250 [facility] Comment on above: Performed By: #### L 500.2500 ####[facility] [address] [place], [address] GAP 12 Normal 5-15 [facility] Comment on above: Performed By: #### L 500.2500 ####[facility] [address] [place], [address] GFR/1.73 sq M.predicted among non-blacks MDRD (S/P/Bld) [Vol rate/Area] 79 mL/min/{1.73_m2} Normal >60 [facility] Comment on above: Result Comment: mL/m in/1.73m2 CKD-EPI Creatinine Equation (2020) Performed By: #### L 500.2500 ####[facility] [address] [place], [address] Glucose [Mass/Vol] 162 mg/dL High 70-99 [facility] Comment on above: Performed By: #### L 500.2500 ####[facility] [address] [place], [address] Potassium [Moles/Vol] 3.9 mmol/L Normal 3.3-5.1 [facility] Comment on above: Performed By: #### L 500.2500 ####[facility] [address] [place], [address] Sodium [Moles/Vol] 139 mmol/L Normal 133-145 [facility] Comment on above: Performed By: #### L 500.2500 ####[facility] [address] [place], [address] Urea nitrogen [Mass/Vol] 12 mg/dL Normal 4-19 [facility] Comment on above: Performed By: #### L 500.2500 ####[facility] [address] [place], [address] Basophil percentageOrdered B y: Zev Tucker on 08-13-2025 Basophils/100 WBC (Bld) 0.2 % 0-1 [facility] Bedside Glucoseon 08-13-2025 FINGERSTICK GLU 130 mg/dL High 74-106 [facility] Comment on above: Result Comment: CHAUNCEY GEMENT OF PATIENT CARE PER NURSING PROTOCOL Performed By: #### L 501.080 ####[facility] [address] [place], [address] FINGERSTICK GLU 110 mg/dL High 74-106 [facility] Comment on above: Result Comment: CHAUNCEY GEMENT OF PATIENT CARE PER NURSING PROTOCOL Performed By: #### L 501.080 ####[facility] [address] [place], [address] FINGERSTICK GLU 130 mg/dL High 74-106 [facility] Comment on above: Result Comment: CHAUNCEY GEMENT OF PATIENT CARE PER NURSING PROTOCOL Performed By: #### L 501.080 ####[facility] [address] [place], [address] FINGERSTICK GLU 82 mg/dL Normal 74-106 [facility] Comment on above: Result Comment: CHAUNCEY GEMENT OF PATIENT CARE PER NURSING PROTOCOL Performed By: #### L 501.080 ####[facility] [address] [place], [address] FINGERSTICK GLU 78 mg/dL Normal 74-106 [facility] Comment on above: Result Comment: CHAUNCEY GEMENT OF PATIENT CARE PER NURSING PROTOCOL Performed By: #### L 501.080 ####[facility] [address] [place], [address] FINGERSTICK GLU 94 mg/dL Normal 74-106 [facility] Comment on above: Result Comment: CHAUNCEY GEMENT OF PATIENT CARE PER NURSING PROTOCOL Performed By: #### L 501.080 ####[facility] [address] [place], [address] FINGERSTICK GLU 118 mg/dL High 74-106 [facility] Comment on above: Result Comment: CHAUNCEY GEMENT OF PATIENT CARE PER NURSING PROTOCOL Performed By: #### L 501.080 ####[facility] [address] [place], [address] FINGERSTICK GLU 165 mg/dL High 74-106 [facility] Comment on above: Result Comment: CHAUNCEY GEMENT OF PATIENT CARE PER NURSING PROTOCOL Performed By: #### L 501.080 ####[facility] [address] [place], [address] FINGERSTICK GLU 171 mg/dL High 74-106 [facility] Comment on above: Result Comment: CHAUNCEY GEMENT OF PATIENT CARE PER NURSING PROTOCOL Performed By: #### L 501.080 ####[facility] [address] [place], [address] FINGERSTICK GLU 161 mg/dL High 74-106 [facility] Comment on above: Result Comment: CHAUNCEY GEMENT OF PATIENT CARE PER NURSING PROTOCOL Performed By: #### L 501.080 ####[facility] [address] [place], [address] FINGERSTICK GLU 147 mg/dL High 74-106 [facility] Comment on above: Result Comment: CHAUNCEY GEMENT OF PATIENT CARE PER NURSING PROTOCOL Performed By: #### L 501.080 ####[facility] [address] [place], [address] FINGERSTICK GLU 177 mg/dL High 74-106 [facility] Comment on above: Result Comment: CHAUNCEY GEMENT OF PATIENT CARE PER NURSING PROTOCOL Performed By: #### L 501.080 ####[facility] [address] [place], [address] FINGERSTICK GLU 156 mg/dL High 74-106 [facility] Comment on above: Result Comment: CHAUNCEY GEMENT OF PATIENT CARE PER NURSING PROTOCOL Performed By: #### L 501.080 ####[facility] [address] [place], [address] FINGERSTICK GLU 156 mg/dL High 74-106 [facility] Comment on above: Result Comment: CHAUNCEY GEMENT OF PATIENT CARE PER NURSING PROTOCOL Performed By: #### L 501.080 ####[facility] [address] [place], [address] FINGERSTICK GLU 175 mg/dL High 74-106 [facility] Comment on above: Result Comment: CHAUNCEY GEMENT OF PATIENT CARE PER NURSING PROTOCOL Performed By: #### L 501.080 ####[facility] [address] [place], [address] FINGERSTICK GLU 185 mg/dL High 74-106 [facility] Comment on above: Result Comment: CHAUNCEY GEMENT OF PATIENT CARE PER NURSING PROTOCOL Performed By: #### L 501.080 ####[facility] [address] [place], [address] Beta-Hydroxbytyrateon 2024 BETA-HYDROXYBUT 0.2 mmol/L Normal 0.0-0.3 [facility] Comment on above: Performed By: #### L 501.6901 ####[facility] [address] [place], [address] BETA-HYDROXYBUT 0.5 mmol/L High 0.0-0.3 [facility] Comment on above: Performed By: #### L 501.2276, L501.6901 ####[facility] [address] [place], [address] Beta-hydroxybutyrateOrdered By: Canelo Lorenzo on 08-13-2025 Beta hydroxybutyrate [Mass/Vol] 0.2 mmol/L 0.0-0.3 [facility] CBC W/Diff, Automatedon 07-30 Absolute Lymph 0.83 X10 3/uL Normal 0.83-4.51 [facility] Comment on above: Performed By: #### L 501.5200, L500.2500, L100.0100, L501.9985 ####[facility] [address] [place], [address] Absolute Neut 5.1 X10 3/uL Normal 2.0-7.7 [facility] Comment on above: Performed By: #### L 501.5200, L500.2500, L100.0100, L501.9985 ####[facility] [address] [place], [address] Basophils/100 WBC (Bld) 0.2 % Normal 0-1 [facility] Comment on above: Performed By: #### L 501.5200, L500.2500, L100.0100, L501.9985 ####[facility] [address] [place], [address] Eosinophils/100 WBC (Bld) 0.2 % Normal 0-5 [facility] Comment on above: Performed By: #### L 501.5200, L500.2500, L100.0100, L501.9985 ####[facility] [address] [place], [address] Erythrocyte distribution width (RBC) [Ratio] 13.5 % Normal 11.6-14.6 [facility] Comment on above: Performed By: #### L 501.5200, L500.2500, L100.0100, L501.9985 ####[facility] [address] [place], [address] Hematocrit (Bld) [Volume fraction] 30.8 % Low 37-47 [facility] Comment on above: Performed By: #### L 501.5200, L500.2500, L100.0100, L501.9985 ####[facility] [address] [place], [address] Hemoglobin (Bld) [Mass/Vol] 10.6 g/dL Low 12.0-15.0 [facility] Comment on above: Performed By: #### L 501.5200, L500.2500, L100.0100, L501.9985 ####[facility] [address] [place], [address] IG% 0.500 Normal 0.0-0.9 [facility] Comment on above: Result Comment: IG% - Immature Granulocytes (promyelocytes, myelocytes andmetamyelocytes) > 1% indicates that a LEFT SHIFT is Present. Performed By: #### L 501.5200, L500.2500, L100.0100, L501.9985 ####[facility] [address] [place], [address] Lymphocytes/100 WBC (Bld) 13.0 % Low 19-41 [facility] Comment on above: Performed By: #### L 501.5200, L500.2500, L100.0100, L501.9985 ####[facility] [address] [place], [address] MCH (RBC) [Entitic mass] 34.6 pg High 27.0-32.0 [facility] Comment on above: Performed By: #### L 501.5200, L500.2500, L100.0100, L501.9985 ####[facility] [address] [place], [address] MCHC (RBC) [Mass/Vol] 34.4 g/dL Normal 32-36 [facility] Comment on above: Performed By: #### L 501.5200, L500.2500, L100.0100, L501.9985 ####[facility] [address] [place], [address] MCV (RBC) [Entitic vol] 100.7 fL High 81-99 [facility] Comment on above: Performed By: #### L 501.5200, L500.2500, L100.0100, L501.9985 ####[facility] [address] [place], [address] Monocytes/100 WBC (Bld) 6.0 % Normal 0-10 [facility] Comment on above: Performed By: #### L 501.5200, L500.2500, L100.0100, L501.9985 ####[facility] [address] [place], [address] Neutrophils/100 WBC (Bld) 80.1 % High 47-70 [facility] Comment on above: Performed By: #### L 501.5200, L500.2500, L100.0100, L501.9985 ####[facility] [address] [place], [address] Nucleated RBC (Bld) [#/Vol] 0 10*3/uL Normal 0-5 [facility] Comment on above: Performed By: #### L 501.5200, L500.2500, L100.0100, L501.9985 ####[facility] [address] [place], [address] Platelet mean volume (Bld) [Entitic vol] 10.2 fL Normal 6.2-12.0 [facility] Comment on above: Performed By: #### L 501.5200, L500.2500, L100.0100, L501.9985 ####[facility] [address] [place], [address] Platelets (Bld) [#/Vol] 112 10*3/uL Low 150-450 [facility] Comment on above: Performed By: #### L 501.5200, L500.2500, L100.0100, L501.9985 ####[facility] [address] [place], [address] RBC (Bld) [#/Vol] 3.06 10*6/uL Low 4.2-5.4 [facility] Comment on above: Performed By: #### L 501.5200, L500.2500, L100.0100, L501.9985 ####[facility] [address] [place], [address] RDW SD 49.9 fl High 35.1-43.9 [facility] Comment on above: Performed By: #### L 501.5200, L500.2500, L100.0100, L501.9985 ####[facility] [address] [place], [address] WBC (Bld) [#/Vol] 6.4 10*3/uL Normal 4.4-11.0 [facility] Comment on above: Performed By: #### L 501.5200, L500.2500, L100.0100, L501.9985 ####[facility] [address] [place], [address] Eosinophil percentageOrdered By: Zev Tucker on 08-13-2025 Eosinophils/100 WBC (Bld) 0.2 % 0-5 [facility] Erythrocyte distribution wid th ratioOrdered By: Zev Tucker on 08-13-2025 Erythrocyte distribution width (RBC) [Ratio] 13.5 % 11.6-14.6 [facility] Erythrocyte distribution wid th standard deviationOrdered By: Zev Tucker on 08-13-2025 Erythrocyte distribution width (RBC) [Ratio] 49.9 fl High 35.1-43.9 [facility] Hematocrit Auto (Bld) [Volum e fraction]Ordered By: Zev Tucker on 08-13-2025 Hematocrit (Bld) [Volume fraction] 30.8 % Low 37-47 [facility] Hemoglobin A1con 08-13-2025 HbA1c (Bld) [Mass fraction] 5.2 % Normal <=5.6 [facility] Comment on above: Result Comment: Norm al < 5.7 % Prediabetic 5.7 - 6.4 % Diabetic >or= 6.5 % Please note range changes. Performed By: #### L 501.5200, L500.2500, L100.0100, L501.9985 ####[facility] [address] [place], [address] Hemoglobin A1c percentageOrd ered By: Zev Tucker on 08-13-2025 HbA1c (Bld) [Mass fraction] 5.2 % <5.7 [facility] Hemoglobin measurementOrdere d By: Zev Tucker on 08-13-2025 Hemoglobin (Bld) [Mass/Vol] 10.6 g/dL Low 12.0-15.0 [facility] Immature granulocytes/100 WB C Auto (Bld)Ordered By: Zev Tucker on 08-13-2025 Immature granulocytes/100 WBC (Bld) 0.500 % 0.0-0.9 [facility] Liver Profileon 08-13-2025 Albumin [Mass/Vol] 3.2 g/dL Low 3.5-5.0 [facility] Comment on above: Order Comment: MG1 6 M Performed By: #### L 500.3400 ####[facility] [address] [place], [address] ALK PHOS 102 U/L Normal 35-104 [facility] Comment on above: Order Comment: MG1 6 M Performed By: #### L 500.3400 ####[facility] [address] [place], [address] ALT [Catalytic activity/Vol] 49 U/L High <=34 [facility] Comment on above: Order Comment: MG1 6 M Performed By: #### L 500.3400 ####[facility] [address] [place], [address] AST [Catalytic activity/Vol] 158 U/L High <=31 [facility] Comment on above: Order Comment: MG1 6 M Performed By: #### L 500.3400 ####[facility] [address] [place], [address] Bilirubin [Mass/Vol] 0.72 mg/dL Normal 0.00-1.30 [facility] Comment on above: Order Comment: MG1 6 M Performed By: #### L 500.3400 ####[facility] [address] [place], [address] Bilirubin.direct [Mass/Vol] 0.43 mg/dL High 0.00-0.30 [facility] Comment on above: Order Comment: MG1 6 M Performed By: #### L 500.3400 ####[facility] [address] [place], [address] Globulin (S) [Mass/Vol] 2.4 g/dL Normal 2.2-4.2 [facility] Comment on above: Order Comment: MG1 6 M Performed By: #### L 500.3400 ####[facility] [address] [place], [address] T PROT 5.6 g/dL Low 5.9-8.4 [facility] Comment on above: Order Comment: MG1 6 M Performed By: #### L 500.3400 ####[facility] [address] [place], [address] MCV (mean corpuscular volume ) determinationOrdered By: Zev Tucker on 08-13-2025 MCV (RBC) [Entitic vol] 100.7 fL High 81-99 [facility] Magnesiumon 08-13-2025 Magnesium [Mass/Vol] 1.0 mg/dL Low 1.5-2.2 [facility] Comment on above: Result Comment: Crit ical Result(s) Called at: 0436 08/13/2025 by:ANTONI??Results read back by same. Performed By: #### L 501.5200 ####[facility] [address] [place], [place], [address] Magnesium [Mass/Vol] 0.9 mg/dL Invalid Interpretation Code 1.5-2.2 [facility] Comment on above: Result Comment: Crit ical Result(s) Called at 0554: by: OTTO GROVER??Results read back by same. Performed By: #### L 501.5200, L500.2500, L100.0100, L501.9985 ####[facility] [address] [place], [place], [address] Mean corpuscular hemoglobin (MCH) determinationOrdered By: Zev Tucker on 08-13-2025 MCH (RBC) [Entitic mass] 34.6 pg High 27.0-32.0 [facility] Monocyte percentageOrdered B y: Zev Tucker on 08-13-2025 Monocytes/100 WBC (Bld) 6.0 % 0-10 [facility] Neutrophil percentageOrdered By: Zev Tucker on 08-13-2025 Neutrophils/100 WBC (Bld) 80.1 % High 47-70 [facility] Phosphoruson 08-13-2025 Phosphate [Mass/Vol] 3.8 mg/dL Normal 2.7-4.5 [facility] Comment on above: Order Comment: Comme nts: add on to AM labs Performed By: #### L 501.2300 ####[facility] [address] [place], [place], [address] Platelet countOrdered By: Maria Antonia Tucker on 08-13-2025 Platelets (Bld) [#/Vol] 112 10*3/uL Low 150-450 [facility] RBC Auto (Bld) [#/Vol]Ordere d By: Zev Tucker on 08-13-2025 RBC (Bld) [#/Vol] 3.06 10*6/uL Low 4.2-5.4 [facility] White blood cell (WBC) count Ordered By: Zev Tucker on 08-13-2025 WBC (Bld) [#/Vol] 6.4 10*3/uL 4.4-11.0 [facility] Abdomen/Pelvis W IV Cont ONL Yon 08-12-2025 Abdomen/Pelvis W IV Cont ONLY Normal [facility] Absolute lymphocyte countOrd ered By: Wellington Rader on 08-12-2025 Lymphocytes Auto (Unsp spec) [#/Vol] 1.18 10*3/uL 0.83-4.51 [facility] Anion gap in Serum or Plasma Ordered By: Wellington Rader on 08-12-2025 Anion gap [Moles/Vol] 48 mmol/L High 04-12 [facility] BUN/creatinine ratioOrdered By: Wellington Rader on 08-12-2025 Urea nitrogen/Creatinine [Mass ratio] 10.8 mg/mg 09-17 [facility] Basic Metabolic Profile (BMP )on 08-12-2025 BUN/CRE 15.8 RATIO Normal 09-17 [facility] Comment on above: Performed By: #### L 500.2500, L501.2300, M200.1000 ####[facility] [address] [place], [address] Calcium [Mass/Vol] 7.3 mg/dL Low 7.6-11.0 [facility] Comment on above: Performed By: #### L 500.2500, L501.2300, M200.1000 ####[facility] [address] [place], [address] Chloride [Moles/Vol] 98 mmol/L Normal 98-108 [facility] Comment on above: Performed By: #### L 500.2500, L501.2300, M200.1000 ####[facility] [address] [place], [address] CO2 [Moles/Vol] 26.8 mmol/L Normal 21.0-32.0 [facility] Comment on above: Performed By: #### L 500.2500, L501.2300, M200.1000 ####[facility] [address] [place], [address] Creatinine [Mass/Vol] 0.97 mg/dL Normal 0.70-1.20 [facility] Comment on above: Performed By: #### L 500.2500, L501.2300, M200.1000 ####[facility] [address] [place], [address] ECRCL 57.55 ml/min Normal 50-250 [facility] Comment on above: Performed By: #### L 500.2500, L501.2300, M200.1000 ####[facility] [address] [place], [address] GAP 15 Normal 5-15 [facility] Comment on above: Performed By: #### L 500.2500, L501.2300, M200.1000 ####[facility] [address] [place], [address] GFR/1.73 sq M.predicted among non-blacks MDRD (S/P/Bld) [Vol rate/Area] 72 mL/min/{1.73_m2} Normal >60 [facility] Comment on above: Result Comment: mL/m in/1.73m2 CKD-EPI Creatinine Equation (2020) Performed By: #### L 500.2500, L501.2300, M200.1000 ####[facility] [address] [place], [address] Glucose [Mass/Vol] 179 mg/dL High 70-99 [facility] Comment on above: Performed By: #### L 500.2500, L501.2300, M200.1000 ####[facility] [address] [place], [address] Potassium [Moles/Vol] 3.4 mmol/L Normal 3.3-5.1 [facility] Comment on above: Performed By: #### L 500.2500, L501.2300, M200.1000 ####[facility] [address] [place], [address] Sodium [Moles/Vol] 140 mmol/L Normal 133-145 [facility] Comment on above: Performed By: #### L 500.2500, L501.2300, M200.1000 ####[facility] [address] [place], [address] Urea nitrogen [Mass/Vol] 15 mg/dL Normal 4-19 [facility] Comment on above: Performed By: #### L 500.2500, L501.2300, M200.1000 ####[facility] [address] [place], [address] BUN Normal - [facility] Comment on above: Result Comment: DUP ORDER Performed By: #### L 500.2500 ####[facility] [address] [place], [address] BUN/CRE Normal 10-20 [facility] Comment on above: Result Comment: DUP ORDER Performed By: #### L 500.2500 ####[facility] [address] [place], [address] Calcium Normal 7.6-11.0 [facility] Comment on above: Result Comment: DUP ORDER Performed By: #### L 500.2500 ####[facility] [address] [place], [address] CL Normal 98-108 [facility] Comment on above: Result Comment: DUP ORDER Performed By: #### L 500.2500 ####[facility] [address] [place], [address] CO2 Normal 21.0-32.0 [facility] Comment on above: Result Comment: DUP ORDER Performed By: #### L 500.2500 ####[facility] [address] [place], [address] CREAT,SERUM Normal 0.70-1.20 [facility] Comment on above: Result Comment: DUP ORDER Performed By: #### L 500.2500 ####[facility] [address] [place], [address] eGFR Normal >60 [facility] Comment on above: Result Comment: DUP ORDER Performed By: #### L 500.2500 ####[facility] [address] [place], [address] GAP Normal 5-15 [facility] Comment on above: Result Comment: DUP ORDER Performed By: #### L 500.2500 ####[facility] [address] [place], [address] GLU Normal 70-99 [facility] Comment on above: Result Comment: DUP ORDER Performed By: #### L 500.2500 ####[facility] [address] [place], [address] Potassium Normal 3.3-5.1 [facility] Comment on above: Result Comment: DUP ORDER Performed By: #### L 500.2500 ####[facility] [address] [place], [address] Basic Metabolic Profile (BMP) Normal 133-145 [facility] Comment on above: Result Comment: DUP ORDER Performed By: #### L 500.2500 ####[facility] [address] [place], [address] Bedside Glucoseon 08-12-2025 FINGERSTICK GLU 186 mg/dL High 74-106 [facility] Comment on above: Result Comment: CHAUNCEY GEMENT OF PATIENT CARE PER NURSING PROTOCOL Performed By: #### L 501.080 ####[facility] [address] [place], [address] FINGERSTICK GLU 171 mg/dL High 74-106 [facility] Comment on above: Result Comment: CHAUNCEY GEMENT OF PATIENT CARE PER NURSING PROTOCOL Performed By: #### L 501.080 ####[facility] [address] [place], [address] FINGERSTICK GLU 173 mg/dL High 74-106 [facility] Comment on above: Result Comment: CHAUNCEY GEMENT OF PATIENT CARE PER NURSING PROTOCOL Performed By: #### L 501.080 ####[facility] [address] [place], [address] FINGERSTICK GLU 211 mg/dL High 74-106 [facility] Comment on above: Result Comment: CHAUNCEY GEMENT OF PATIENT CARE PER NURSING PROTOCOL Performed By: #### L 501.080 ####[facility] [address], [address] FINGERSTICK GLU 198 mg/dL High 74-106 [facility] Comment on above: Result Comment: CHAUNCEY GEMENT OF PATIENT CARE PER NURSING PROTOCOL Performed By: #### L 501.080 ####[facility] [address] [place], [address] FINGERSTICK GLU 234 mg/dL High 74-106 [facility] Comment on above: Result Comment: CHAUNCEY GEMENT OF PATIENT CARE PER NURSING PROTOCOL Performed By: #### L 501.080 ####[facility] [address], [address] FINGERSTICK GLU 174 mg/dL High 74-106 [facility] Comment on above: Result Comment: CHAUNCEY GEMENT OF PATIENT CARE PER NURSING PROTOCOL Performed By: #### L 501.080 ####[facility] [address] [place], [address] FINGERSTICK GLU 158 mg/dL High 74-106 [facility] Comment on above: Result Comment: CHAUNCEY GEMENT OF PATIENT CARE PER NURSING PROTOCOL Performed By: #### L 501.080 ####[facility] [address] [place], [address] FINGERSTICK GLU 208 mg/dL High 74-106 [facility] Comment on above: Result Comment: CHAUNCEY GEMENT OF PATIENT CARE PER NURSING PROTOCOL Performed By: #### L 501.080 ####[facility] [address] [place], [address] FINGERSTICK GLU 232 mg/dL High 74-106 [facility] Comment on above: Result Comment: CHAUNCEY GEMENT OF PATIENT CARE PER NURSING PROTOCOL Performed By: #### L 501.080 ####[facility] [address] [place], [address] FINGERSTICK GLU 270 mg/dL High 74-106 [facility] Comment on above: Result Comment: CHAUNCEY GEMENT OF PATIENT CARE PER NURSING PROTOCOL Performed By: #### L 501.080 ####[facility] [address] [place], [address] Beta-Hydroxbytyrateon 2024 BETA-HYDROXYBUT 14.0 mmol/L High 0.0-0.3 [facility] Comment on above: Performed By: #### L 501.6901, L503.6005 ####[facility] [address] [place], [address] Beta-hydroxybutyrateOrdered By: Wellington Rader on 08-12-2025 Beta hydroxybutyrate [Mass/Vol] 14.0 mmol/L High 0.0-0.3 [facility] Bilirubin Test strip Ql (U)O rdered By: Zev Tucker on 08-12-2025 Bilirubin Ql (U) 1 mg/dL High Negative [facility] Bilirubin, totalOrdered By: Wellington Rader on 08-12-2025 Bilirubin [Mass/Vol] 1.22 mg/dL 0.00-1.30 [facility] Blood Gases by CPSon 025 Base excess Calc (Bld) [Moles/Vol] 0 mmol/L Normal -2 to +2 [facility] Comment on above: Performed By: #### L 9000.0800 ####[facility] [address] [place], [address] Blood Gas Type ART Normal [facility] Comment on above: Performed By: #### L 9000.0800 ####[facility] [address] [place], [address] CO2 [Moles/Vol] 23 mmol/L Normal [facility] Comment on above: Performed By: #### L 9000.0800 ####[facility] [address] [place], [address] HCO3 (Bld) [Moles/Vol] 22.2 mmol/L Normal 22-26 [facility] Comment on above: Performed By: #### L 9000.0800 ####[facility] [address] [place], [address] Mode Not entered Normal [facility] Comment on above: Performed By: #### L 9000.0800 ####[facility] [address] [place], [address] O2 Delivery Dev Not entered Normal [facility] Comment on above: Performed By: #### L 9000.0800 ####[facility] [address] [place], [address] pCO2 24.6 mmHg Low 35-45 [facility] Comment on above: Performed By: #### L 9000.0800 ####[facility] [address] [place], [address] pH (Bld) 7.56 [pH] High 7.35-7.45 [facility] Comment on above: Performed By: #### L 9000.0800 ####[facility] [address] [place], [address] PO2 63 mmHG Low 75-100 [facility] Comment on above: Performed By: #### L 9000.0800 ####[facility] [address] [place], [address] SITE Not entered Normal [facility] Comment on above: Performed By: #### L 9000.0800 ####[facility] [address] [place], [address] SO2 95 Normal 95-99 [facility] Comment on above: Performed By: #### L 9000.0800 ####[facility] [address] [place], [address] Blood base excess determinat ionOrdered By: Wellington Rader on 08-12-2025 Base excess Calc (BldV) [Moles/Vol] 0 mmol/L -2-2 [facility] Blood bicarbonate measuremen tOrdered By: Wellington Rader on 08-12-2025 HCO3 (Bld) [Moles/Vol] 22.2 mmol/L 22-26 [facility] Blood cultureOrdered By: Candice Tucker on 08-12-2025 Bacteria identified Cx Nom (Bld) Pasteurella multocida Abnormal [facility] Blood lymphocytes/100 leukoc ytesOrdered By: Wellington Rader on 08-12-2025 Lymphocytes/100 WBC (Bld) 10 % Low 19-41 [facility] Blood monocytes/100 leukocyt esOrdered By: Wellington Rader on 08-12-2025 Monocytes/100 WBC (Bld) 3 % 0-10 [facility] Blood segmented neutrophils/ 100 leukocytesOrdered By: Wellington Rader on 08-12-2025 Segmented neutrophils/100 WBC (Bld) 87 % High 47-70 [facility] CBC W/Diff, Automatedon 07-30 Absolute Lymph 1.18 X10 3/uL Normal 0.83-4.51 [facility] Comment on above: Performed By: #### L 100.0100, L501.2450, L500.4050 ####[facility] [address] [place], [address] Absolute Neut 10.3 X10 3/uL High 2.0-7.7 [facility] Comment on above: Performed By: #### L 100.0100, L501.2450, L500.4050 ####[facility] [address] [place], [address] CO2 (BldV) [Moles/Vol]Ordere d By: Wellington Rader on 08-12-2025 CO2 [Moles/Vol] 26 mmol/L 23-33 [facility] Carbon dioxide, total [Moles /volume] in Central venous bloodOrdered By: Wellington Rader on 08-12-2025 CO2 [Moles/Vol] 17.4 mmol/L Low 21.0-32.0 [facility] Chloride assayOrdered By: Penny Rader on 08-12-2025 Chloride [Moles/Vol] 73 mmol/L Low 98-108 [facility] Comprehensive Metabolic Prof ilon 08-12-2025 Albumin [Mass/Vol] 4.6 g/dL Normal 3.5-5.0 [facility] Comment on above: Performed By: #### L 100.0100, L501.2450, L500.4050 ####[facility] [address] [place], [address] Albumin/Globulin [Mass ratio] 1.3 {ratio} Normal 0.9-2.4 [facility] Comment on above: Performed By: #### L 100.0100, L501.2450, L500.4050 ####[facility] [address] [place], [address] ALK PHOS 135 U/L High 35-104 [facility] Comment on above: Performed By: #### L 100.0100, L501.2450, L500.4050 ####[facility] [address] [place], [address] ALT [Catalytic activity/Vol] 108 U/L High <=34 [facility] Comment on above: Performed By: #### L 100.0100, L501.2450, L500.4050 ####[facility] [address] [place], [address] AST [Catalytic activity/Vol] 408 U/L High <=31 [facility] Comment on above: Performed By: #### L 100.0100, L501.2450, L500.4050 ####[facility] [address] [place], [address] Bilirubin [Mass/Vol] 1.22 mg/dL Normal 0.00-1.30 [facility] Comment on above: Performed By: #### L 100.0100, L501.2450, L500.4050 ####[facility] [address] [place], [address] BUN/CRE 10.8 RATIO Normal 10-20 [facility] Comment on above: Performed By: #### L 100.0100, L501.2450, L500.4050 ####[facility] [address] [place], [address] Calcium [Mass/Vol] 9.2 mg/dL Normal 7.6-11.0 [facility] Comment on above: Performed By: #### L 100.0100, L501.2450, L500.4050 ####[facility] [address] [place], [address] Chloride [Moles/Vol] 73 mmol/L Invalid Interpretation Code 98-108 [facility] Comment on above: Result Comment: Crit ical Result(s) Called at: by:??Results read back bysame.Critical Result(s) Called to: Obie LEE (ER) by:Rolo??Results read back by same. Performed By: #### L 100.0100, L501.2450, L500.4050 ####[facility] [address] [place], [address] CO2 [Moles/Vol] 17.4 mmol/L Low 21.0-32.0 [facility] Comment on above: Performed By: #### L 100.0100, L501.2450, L500.4050 ####[facility] [address] [place], [address] Creatinine [Mass/Vol] 1.82 mg/dL High 0.70-1.20 [facility] Comment on above: Performed By: #### L 100.0100, L501.2450, L500.4050 ####[facility] [address] [place], [address] GAP 48 High 5-15 [facility] Comment on above: Performed By: #### L 100.0100, L501.2450, L500.4050 ####[facility] [address] [place], [address] GFR/1.73 sq M.predicted among non-blacks MDRD (S/P/Bld) [Vol rate/Area] 34 mL/min/{1.73_m2} Low >60 [facility] Comment on above: Result Comment: mL/m in/1.73m2 CKD-EPI Creatinine Equation (2020) Performed By: #### L 100.0100, L501.2450, L500.4050 ####[facility] [address] [place], [address] Globulin (S) [Mass/Vol] 3.6 g/dL Normal 2.2-4.2 [facility] Comment on above: Performed By: #### L 100.0100, L501.2450, L500.4050 ####[facility] [address] [place], [address] Glucose [Mass/Vol] 300 mg/dL High 70-99 [facility] Comment on above: Performed By: #### L 100.0100, L501.2450, L500.4050 ####[facility] [address] [place], [address] Potassium [Moles/Vol] 3.1 mmol/L Low 3.3-5.1 [facility] Comment on above: Performed By: #### L 100.0100, L501.2450, L500.4050 ####[facility] [address] [place], [address] Sodium [Moles/Vol] 139 mmol/L Normal 133-145 [facility] Comment on above: Performed By: #### L 100.0100, L501.2450, L500.4050 ####[facility] [address] [place], [address] T PROT 8.3 g/dL Normal 5.9-8.4 [facility] Comment on above: Performed By: #### L 100.0100, L501.2450, L500.4050 ####[facility] [address] [place], [address] Urea nitrogen [Mass/Vol] 20 mg/dL High 4-19 [facility] Comment on above: Performed By: #### L 100.0100, L501.2450, L500.4050 ####[facility] [address] [place], [address] Emergency Department Summary on 08-12-2025 Emergency Department Summary Normal [facility] Erythrocyte distribution wid th ratioOrdered By: Wellington Rader on 08-12-2025 Erythrocyte distribution width (RBC) [Ratio] 13.6 % 11.6-14.6 [facility] Erythrocyte distribution wid th standard deviationOrdered By: Wellington Rader on 08-12-2025 Erythrocyte distribution width (RBC) [Ratio] 50.9 fl High 35.1-43.9 [facility] Erythrocyte morphology asses smentOrdered By: Wellington Rader on 08-12-2025 RBC morphology finding Nom (Bld) NORM C+C NORMAL NORM C&C [facility] Glomerular filtration rate ( GFR) estimation/1.73 sq m using serum, plasma, or whole bOrdered By: Wellington Rader on 08-12-2025 GFR/1.73 sq M.predicted among non-blacks MDRD (S/P/Bld) [Vol rate/Area] 34 mL/min/{1.73_m2} Low >60 [facility] H AND P Exam - Hospitaliston 08-12-2025 H&P Exam - Hospitalist Normal [facility] Hematocrit Auto (Bld) [Volum e fraction]Ordered By: Wellington Rader on 08-12-2025 Hematocrit (Bld) [Volume fraction] 41.3 % 37-47 [facility] Hemoglobin measurementOrdere d By: Wellington Prasanth on 08-12-2025 Hemoglobin (Bld) [Mass/Vol] 14.1 g/dL 12.0-15.0 [facility] Influenza virus A and B and SARS-CoV-2 (COVID-19) and Respiratory syncytial virus RNAOrdered By: Wellingtonfortino Rader on 08-12-2025 SARS-CoV-2 (COVID-19) RNA ALLEY+probe Ql (Unsp spec) [facility] Ketones Test strip Ql (U)Ord ered By: Zev Tucker on 08-12-2025 Ketones Ql (U) 150 mg/dl Negative [facility] Lactic Acidon 08-12-2025 Lactate [Moles/Vol] 1.7 mmol/L Normal 0.0-2.0 [facility] Comment on above: Order Comment: Y Performed By: #### L 501.6901, L503.6005 ####[facility] [address] [place], [place], [address] Lipaseon 08-12-2025 Lipase [Catalytic activity/Vol] 1130 U/L High 13-75 [facility] Comment on above: Result Comment: Lucie schultz note:LIPASE revised reference range effective 23.New Lipase methodology. Expected to produce lower valuesthan the previous assay method.NEW Reference Range: 13 - 75 U/L Performed By: #### L 100.0100, L501.2450, L500.4050 ####[facility] [address] [place], [address] M100.019on 08-12-2025 M100.019 Negative Normal [facility] Comment on above: Performed By: #### M 100.019 ####[facility] [address] [place], [address] M100.677on 08-12-2025 M100.677 Negative Normal [facility] Comment on above: Performed By: #### M 100.678, M100.677 ####[facility] [address] [place], [address] M100.678on 08-12-2025 M100.678 Pending SARS-CoV-2 (COVID 19) Negative INFLUENZA A Negative INFLUENZA B Negative RSV PCR Negative Normal [facility] Comment on above: Performed By: #### M 100.678, M100.677 ####[facility] [address] [place], [address] M8200.1000on 08-12-2025 M8200.1000 Normal Reference Ran ge = Negative MRSA DNA Nose Ql ALLEY+probe GeneXpert Instrument, PCR method MRSA PCR MRSA NEGATIVE Normal [facility] Comment on above: Performed By: #### M 8200.1000 ####[facility] [address] [place], [address] MCV (mean corpuscular volume ) determinationOrdered By: Wellington Rader on 08-12-2025 MCV (RBC) [Entitic vol] 102.0 fL High 81-99 [facility] Mean corpuscular hemoglobin (MCH) determinationOrdered By: Wellington Rader on 08-12-2025 MCH (RBC) [Entitic mass] 34.8 pg High 27.0-32.0 [facility] Measurement, pHOrdered By: Pia Rader on 08-12-2025 pH (Unsp spec) 7.56 [pH] High 7.35-7.45 [facility] Mucus LM Ql (Urine sed)Order ed By: Zev Tucker on 08-12-2025 Mucus Ql (Urine sed) 0 SEEN /hpf [facility] Nasal methicillin resistant Staphylococcus aureus (MRSA) DNA detection by PCROrdered By: Zev Tucker on 08-12-2025 MRSA DNA ALLEY+probe Ql (Nose) [facility] Nitrite Test strip Ql (U)Ord ered By: Zev Tucker on 08-12-2025 Nitrite Ql (U) Negative Negative [facility] No Panel InformationOrdered By: Wellington Rader on 08-12-2025 GELACIO [facility] Not entered [facility] Not entered [facility] 408 U/L High <32 [facility] Phosphoruson 08-12-2025 Phosphate [Mass/Vol] 0.8 mg/dL Invalid Interpretation Code 2.7-4.5 [facility] Comment on above: Result Comment: Crit ical Result(s) Called GWYCOFF at: 2111 by:MINH??Results read back by same. Performed By: #### L 500.2500, L501.2300, M200.1000 ####[facility] [address] [place], [place], [address] Platelet countOrdered By: Penny Rader on 08-12-2025 Platelets (Bld) [#/Vol] 181 10*3/uL 150-450 [facility] Platelet estimateOrdered By: Wellington Rader on 08-12-2025 Platelets LM Ql (Bld) ADEQUATE ADEQ [facility] Potassium measurement (mass/ volume)Ordered By: Wellington Rader on 08-12-2025 Potassium (Unsp spec) [Mass/Vol] 3.1 mmol/L Low 3.3-5.1 [facility] ,Serum,hCG Quali.on 08-12-2025 HCG, SERUM QUAL Negative Normal [facility] Comment on above: Performed By: #### L 700.6800 ####[facility] [address] [place], [place], [address] Protein Test strip Ql (U)Ord ered By: Zev Tucker on 08-12-2025 Protein Ql (U) 100 mg/dl High Negative [facility] RBC Auto (Bld) [#/Vol]Ordere d By: Wellington Rader on 08-12-2025 RBC (Bld) [#/Vol] 4.05 10*6/uL Low 4.2-5.4 [facility] [id number]-[id number] By: Rajesh Tucker on 08-12-2025 SARS-CoV-2 (COVID-19) RNA ALLEY+probe Ql (Unsp spec) [facility] Serum beta-hCG test, qualita tiveOrdered By: Wellington Rader on 08-12-2025 Beta HCG ( test) Ql Negative [facility] Serum creatinine measurement (mass/volume)Ordered By: Wellington Rader on 08-12-2025 Creatinine [Mass/Vol] 1.82 mg/dL High 0.70-1.20 [facility] Serum globulin measurementOr dered By: Wellington Rader on 08-12-2025 Globulin (S) [Mass/Vol] 3.6 g/dL 2.2-4.2 [facility] Serum glucose measurement (m ass/volume)Ordered By: Wellington Rader on 08-12-2025 Glucose [Mass/Vol] 300 mg/dL High 70-99 [facility] Serum or plasma alanine wilkerson otransferase (ALT) measurementOrdered By: Wellington Rader on 08-12-2025 ALT [Catalytic activity/Vol] 108 U/L High <35 [facility] Serum or plasma albumin alphonso urement (mass/volume)Ordered By: Wellington Rader on 08-12-2025 Albumin [Mass/Vol] 4.6 g/dL 3.5-5.0 [facility] Serum or plasma albumin/glob ulin mass ratioOrdered By: Wellington Rader on 08-12-2025 Albumin/Globulin [Mass ratio] 1.3 {ratio} 0.9-2.4 [facility] Serum or plasma alkaline trinity sphatase measurementOrdered By: Wellington Rader on 08-12-2025 ALP [Catalytic activity/Vol] 135 U/L High 35-104 [facility] Serum or plasma calcium alphonso urement (mass/volume)Ordered By: Wellington Rader on 08-12-2025 Calcium [Mass/Vol] 9.2 mg/dL 7.6-11.0 [facility] Serum or plasma urea nitroge n measurement (mass/volume)Ordered By: Wellington Rader on 08-12-2025 Urea nitrogen [Mass/Vol] 20 mg/dL High 4-19 [facility] Sodium levelOrdered By: Dontae Rader on 08-12-2025 Sodium [Moles/Vol] 139 mmol/L 133-145 [facility] Squamous epithelial cells de tection in urine sediment by light microscopyOrdered By: Zev Tucker on 08-12-2025 Epithelial cells.squamous LM Ql (Urine sed) 0-5 SEEN /hpf 5-10 [facility] Strep pneumoniae Antig(UR,CS F)on 08-12-2025 STPAG Normal [facility] Comment on above: Performed By: #### M 100.2200, M300.4600 ####[facility] [address] [place], [place], [address] Streptococcus pyogenes rRNA detection in throat by DNA probeOrdered By: Wellington Rader on 08-12-2025 S. pyogenes rRNA Probe Ql (Throat) [facility] Total carbon dioxide measure mentOrdered By: Wellington Rader on 08-12-2025 CO2 [Moles/Vol] 23 mmol/L [facility] Total cell countOrdered By: Wellington Rader on 08-12-2025 Cells counted Molgen (Bld/Tiss) [#] 100 MANUAL DIFF [facility] Total proteinOrdered By: Jimbo Rader on 08-12-2025 Protein [Mass/Vol] 8.3 g/dL 5.9-8.4 [facility] Urinalysis, Completeon 08-12 EPI,SQUAMOUS 0-5 SEEN Normal 5-10 [facility] Comment on above: Order Comment: CLEAN CATCH Performed By: #### L 400.0001 ####[facility] [address] [place], [address] RBC 5-10 SEEN Normal 0-5 [facility] Comment on above: Order Comment: CLEAN CATCH Performed By: #### L 400.0001 ####[facility] [address] [place], [address] WBC 0-5 SEEN Normal 0-5 [facility] Comment on above: Order Comment: CLEAN CATCH Performed By: #### L 400.0001 ####[facility] [address] [place], [address] BACTERIA 0 SEEN Normal None Seen [facility] Comment on above: Order Comment: CLEAN CATCH Performed By: #### L 400.0001 ####[facility] [address] [place], [address] Mucus Ql (Urine sed) 0 SEEN Normal [facility] Comment on above: Order Comment: CLEAN CATCH Performed By: #### L 400.0001 ####[facility] [address] [place], [place], [address] Urine clarityOrdered By: Candice Tucker on 08-12-2025 Clarity (U) Clear Clear [facility] Urine color determinationOrd ered By: Zev Tucker on 08-12-2025 Color (U) Yellow Yellow [facility] Urine cultureOrdered By: Candice Tucker on 08-12-2025 Bacteria identified Cx Nom (U) Mixed Gram Pos & Gram Neg Org Abnormal [facility] Urine glucose detectionOrder ed By: Zev Tucker on 08-12-2025 Glucose Ql (U) 50 mg/dl High Normal [facility] Urine leukocyte esterase det ection by dipstickOrdered By: Zev Tuckre on 08-12-2025 Leukocyte esterase Test strip Ql (U) Negative Negative [facility] Urine pHOrdered By: Zev Tucker on 08-12-2025 pH (U) 6.5 [pH] 5.0 - 8.0 [facility] Urine sediment bacteria coun t by microscopy (number/high power field)Ordered By: Zev Tucker on 08-12-2025 Bacteria LM.HPF (Urine sed) [#/Area] 0 /[HPF] None Seen [facility] Urine specific gravity measu rementOrdered By: Zev Tucker on 08-12-2025 Specific gravity (U) [Rel density] 1.010 1.002-1.030 [facility] Urine urobilinogen measureme ntOrdered By: Zev Tucker on 08-12-2025 Urobilinogen Ql (U) 4 mg/dl High Normal [facility] Venous Blood Gason Blood Gas Type GELACIO Normal [facility] Comment on above: Performed By: #### L 9000.0810 ####[facility] [address] [place], [address] CO2 [Moles/Vol] 26 mmol/L Normal 23-33 [facility] Comment on above: Performed By: #### L 9000.0810 ####[facility] [address] [place], [address] HCO3 (Bld) [Moles/Vol] 25 mmol/L Normal 22-26 [facility] Comment on above: Performed By: #### L 9000.0810 ####[facility] [address] [place], [address] O2 Delivery Dev Not entered [facility] Comment on above: Performed By: #### L 9000.0810 ####[facility] [address] [place], [address] SITE Not entered [facility] Comment on above: Performed By: #### L 9000.0810 ####[facility] [address] [place], [address] VBG BE 2 mmol/L Normal -1.0-3.5 [facility] Comment on above: Performed By: #### L 9000.0810 ####[facility] [address] [place], [address] VBG pCO2 32.2 mmHg Low 41-51 [facility] Comment on above: Performed By: #### L 9000.0810 ####[facility] [address] [place], [address] VBG pH 7.49 High 7.32-7.42 [facility] Comment on above: Performed By: #### L 9000.0810 ####[facility] [address] [place], [place], [address] VBG PO2 52 mmHg High 25-40 [facility] Comment on above: Performed By: #### L 9000.0810 ####[facility] [address] [place], [address] VBG SO2 90 High 50-70 [facility] Comment on above: Performed By: #### L 9000.0810 ####[facility] [address] [place], [place], [address] Venous blood base excess alexis surementOrdered By: Wellington Rader on 08-12-2025 Base excess Calc (BldV) [Moles/Vol] 2 mmol/L -1.0-3.5 [facility] Venous blood bicarbonate alexis surementOrdered By: Wellington Rader on 08-12-2025 HCO3 (Bld) [Moles/Vol] 25 mmol/L 22-26 [facility] Venous blood pH measurementO rdered By: Wellington Rader on 08-12-2025 pH (BldV) 7.49 [pH] High 7.32-7.42 [facility] Venous blood partial pressur e of carbon dioxide measurementOrdered By: Wellington Rader on 08-12-2025 CO2 (BldV) [Partial pressure] 32.2 mm[Hg] Low 41-51 [facility] Venous blood partial pressur e of oxygen measurementOrdered By: Wellington Rader on 08-12-2025 Oxygen (BldV) [Partial pressure] 52 mm[Hg] High 25-40 [facility] White blood cell (WBC) count Ordered By: Wellington Rader on 08-12-2025 WBC (Bld) [#/Vol] 11.8 10*3/uL High 4.4-11.0 [facility] White blood cell countOrdere d By: Zev Tucker on 08-12-2025 White blood cell count 0-5 SEEN /hpf 0-5 [facility] CBC W/Diff, Automatedon 08-2 4-2025 Absolute Neut Normal 2.0-7.7 [facility] Comment on above: Result Comment: Canc elled via OM: Order cancelled - Patient discharged Performed By: #### L 100.0100, L500.4050 ####[facility] [address] [place], [address] HCT Normal 37-47 [facility] Comment on above: Result Comment: Canc elled via OM: Order cancelled - Patient discharged Performed By: #### L 100.0100, L500.4050 ####[facility] [address] [place], [address] HGB Normal 12.0-15.0 [facility] Comment on above: Result Comment: Canc elled via OM: Order cancelled - Patient discharged Performed By: #### L 100.0100, L500.4050 ####[facility] [address] [place], [address] MCH Normal 27.0-32.0 [facility] Comment on above: Result Comment: Canc elled via OM: Order cancelled - Patient discharged Performed By: #### L 100.0100, L500.4050 ####[facility] [address] [place], [address] MCHC Normal 32-36 [facility] Comment on above: Result Comment: Canc elled via OM: Order cancelled - Patient discharged Performed By: #### L 100.0100, L500.4050 ####[facility] [address] [place], [address] MCV Normal 81-99 [facility] Comment on above: Result Comment: Canc elled via OM: Order cancelled - Patient discharged Performed By: #### L 100.0100, L500.4050 ####[facility] [address] [place], [address] NEUT% Normal 47-70 [facility] Comment on above: Result Comment: Canc elled via OM: Order cancelled - Patient discharged Performed By: #### L 100.0100, L500.4050 ####[facility] [address] [place], [address] PLT Normal 150-450 [facility] Comment on above: Result Comment: Canc elled via OM: Order cancelled - Patient discharged Performed By: #### L 100.0100, L500.4050 ####[facility] [address] [place], [address] RBC Normal 4.2-5.4 [facility] Comment on above: Result Comment: Canc elled via OM: Order cancelled - Patient discharged Performed By: #### L 100.0100, L500.4050 ####[facility] [address] [place], [address] RDW CV Normal 11.6-14.6 [facility] Comment on above: Result Comment: Canc elled via OM: Order cancelled - Patient discharged Performed By: #### L 100.0100, L500.4050 ####[facility] [address] [place], [address] RDW SD Normal 35.1-43.9 [facility] Comment on above: Result Comment: Canc elled via OM: Order cancelled - Patient discharged Performed By: #### L 100.0100, L500.4050 ####[facility] [address] [place], [address] WBC Normal 4.4-11.0 [facility] Comment on above: Result Comment: Canc elled via OM: Order cancelled - Patient discharged Performed By: #### L 100.0100, L500.4050 ####[facility] [address] [place], [address] Comprehensive Metabolic Prof ilon 07-22-2025 ALB Normal 3.5-5.0 [facility] Comment on above: Result Comment: Canc elled via OM: Order cancelled - Patient discharged Performed By: #### L 100.0100, L500.4050 ####[facility] [address] [place], [address] ALK PHOS Normal 35-104 [facility] Comment on above: Result Comment: Canc elled via OM: Order cancelled - Patient discharged Performed By: #### L 100.0100, L500.4050 ####[facility] [address] [place], [address] ALT Normal <=34 [facility] Comment on above: Result Comment: Canc elled via OM: Order cancelled - Patient discharged Performed By: #### L 100.0100, L500.4050 ####[facility] [address] [place], [address] AST Normal <=31 [facility] Comment on above: Result Comment: Canc elled via OM: Order cancelled - Patient discharged Performed By: #### L 100.0100, L500.4050 ####[facility] [address] [place], [address] BUN Normal 4-19 [facility] Comment on above: Result Comment: Canc elled via OM: Order cancelled - Patient discharged Performed By: #### L 100.0100, L500.4050 ####[facility] [address] [place], [address] BUN/CRE Normal 10-20 [facility] Comment on above: Result Comment: Canc elled via OM: Order cancelled - Patient discharged Performed By: #### L 100.0100, L500.4050 ####[facility] [address] [place], [address] Calcium Normal 7.6-11.0 [facility] Comment on above: Result Comment: Canc elled via OM: Order cancelled - Patient discharged Performed By: #### L 100.0100, L500.4050 ####[facility] [address] [place], [address] CL Normal 98-108 [facility] Comment on above: Result Comment: Canc elled via OM: Order cancelled - Patient discharged Performed By: #### L 100.0100, L500.4050 ####[facility] [address] [place], [address] CO2 Normal 21.0-32.0 [facility] Comment on above: Result Comment: Canc elled via OM: Order cancelled - Patient discharged Performed By: #### L 100.0100, L500.4050 ####[facility] [address] [place], [address] CREAT,SERUM Normal 0.70-1.20 [facility] Comment on above: Result Comment: Canc elled via OM: Order cancelled - Patient discharged Performed By: #### L 100.0100, L500.4050 ####[facility] [address] [place], [address] eGFR Normal >60 [facility] Comment on above: Result Comment: Canc elled via OM: Order cancelled - Patient discharged Performed By: #### L 100.0100, L500.4050 ####[facility] [address] [place], [address] GAP Normal 5-15 [facility] Comment on above: Result Comment: Canc elled via OM: Order cancelled - Patient discharged Performed By: #### L 100.0100, L500.4050 ####[facility] [address] [place], [address] GLU Normal 70-99 [facility] Comment on above: Result Comment: Canc elled via OM: Order cancelled - Patient discharged Performed By: #### L 100.0100, L500.4050 ####[facility] [address] [place], [address] Potassium Normal 3.3-5.1 [facility] Comment on above: Result Comment: Canc elled via OM: Order cancelled - Patient discharged Performed By: #### L 100.0100, L500.4050 ####[facility] [address] [place], [address] T BILI Normal 0.00-1.30 [facility] Comment on above: Result Comment: Canc elled via OM: Order cancelled - Patient discharged Performed By: #### L 100.0100, L500.4050 ####[facility] [address] [place], [address] T PROT Normal 5.9-8.4 [facility] Comment on above: Result Comment: Canc elled via OM: Order cancelled - Patient discharged Performed By: #### L 100.0100, L500.4050 ####[facility] [address] [place], [address] Comprehensive Metabolic Profil Normal 133-145 [facility] Comment on above: Result Comment: Canc elled via OM: Order cancelled - Patient discharged Performed By: #### L 100.0100, L500.4050 ####[facility] [address] [place], [address] CBC W/Diff, Automatedon 08-2 Absolute Neut Normal 2.0-7.7 [facility] Comment on above: Result Comment: Canc elled via OM: Order cancelled - Patient discharged Performed By: #### L 100.0100, L500.4050 ####[facility] [address] [place], [address] HCT Normal 37-47 [facility] Comment on above: Result Comment: Canc elled via OM: Order cancelled - Patient discharged Performed By: #### L 100.0100, L500.4050 ####[facility] [address] [place], [address] HGB Normal 12.0-15.0 [facility] Comment on above: Result Comment: Canc elled via OM: Order cancelled - Patient discharged Performed By: #### L 100.0100, L500.4050 ####[facility] [address] [place], [address] MCH Normal 27.0-32.0 [facility] Comment on above: Result Comment: Canc elled via OM: Order cancelled - Patient discharged Performed By: #### L 100.0100, L500.4050 ####[facility] [address] [place], [address] MCHC Normal 32-36 [facility] Comment on above: Result Comment: Canc elled via OM: Order cancelled - Patient discharged Performed By: #### L 100.0100, L500.4050 ####[facility] [address] [place], [address] MCV Normal 81-99 [facility] Comment on above: Result Comment: Canc elled via OM: Order cancelled - Patient discharged Performed By: #### L 100.0100, L500.4050 ####[facility] [address] [place], [address] NEUT% Normal 47-70 [facility] Comment on above: Result Comment: Canc elled via OM: Order cancelled - Patient discharged Performed By: #### L 100.0100, L500.4050 ####[facility] [address] [place], [address] PLT Normal 150-450 [facility] Comment on above: Result Comment: Canc elled via OM: Order cancelled - Patient discharged Performed By: #### L 100.0100, L500.4050 ####[facility] [address] [place], [address] RBC Normal 4.2-5.4 [facility] Comment on above: Result Comment: Canc elled via OM: Order cancelled - Patient discharged Performed By: #### L 100.0100, L500.4050 ####[facility] [address] [place], [address] RDW CV Normal 11.6-14.6 [facility] Comment on above: Result Comment: Canc elled via OM: Order cancelled - Patient discharged Performed By: #### L 100.0100, L500.4050 ####[facility] [address] [place], [address] RDW SD Normal 35.1-43.9 [facility] Comment on above: Result Comment: Canc elled via OM: Order cancelled - Patient discharged Performed By: #### L 100.0100, L500.4050 ####[facility] [address] [place], [address] WBC Normal 4.4-11.0 [facility] Comment on above: Result Comment: Canc elled via OM: Order cancelled - Patient discharged Performed By: #### L 100.0100, L500.4050 ####[facility] [address] [place], [address] Comprehensive Metabolic Prof ilon 07-21-2025 ALB Normal 3.5-5.0 [facility] Comment on above: Result Comment: Canc elled via OM: Order cancelled - Patient discharged Performed By: #### L 100.0100, L500.4050 ####[facility] [address] [place], [address] ALK PHOS Normal 35-104 [facility] Comment on above: Result Comment: Canc elled via OM: Order cancelled - Patient discharged Performed By: #### L 100.0100, L500.4050 ####[facility] [address] [place], [address] ALT Normal <=34 [facility] Comment on above: Result Comment: Canc elled via OM: Order cancelled - Patient discharged Performed By: #### L 100.0100, L500.4050 ####[facility] [address] [place], [address] AST Normal <=31 [facility] Comment on above: Result Comment: Canc elled via OM: Order cancelled - Patient discharged Performed By: #### L 100.0100, L500.4050 ####[facility] [address] [place], [address] BUN Normal 4-19 [facility] Comment on above: Result Comment: Canc elled via OM: Order cancelled - Patient discharged Performed By: #### L 100.0100, L500.4050 ####[facility] [address] [place], [address] BUN/CRE Normal 10-20 [facility] Comment on above: Result Comment: Canc elled via OM: Order cancelled - Patient discharged Performed By: #### L 100.0100, L500.4050 ####[facility] [address] [place], [address] Calcium Normal 7.6-11.0 [facility] Comment on above: Result Comment: Canc elled via OM: Order cancelled - Patient discharged Performed By: #### L 100.0100, L500.4050 ####[facility] [address] [place], [address] CL Normal 98-108 [facility] Comment on above: Result Comment: Canc elled via OM: Order cancelled - Patient discharged Performed By: #### L 100.0100, L500.4050 ####[facility] [address] [place], [address] CO2 Normal 21.0-32.0 [facility] Comment on above: Result Comment: Canc elled via OM: Order cancelled - Patient discharged Performed By: #### L 100.0100, L500.4050 ####[facility] [address] [place], [address] CREAT,SERUM Normal 0.70-1.20 [facility] Comment on above: Result Comment: Canc elled via OM: Order cancelled - Patient discharged Performed By: #### L 100.0100, L500.4050 ####[facility] [address] [place], [address] eGFR Normal >60 [facility] Comment on above: Result Comment: Canc elled via OM: Order cancelled - Patient discharged Performed By: #### L 100.0100, L500.4050 ####[facility] [address] [place], [address] GAP Normal 5-15 [facility] Comment on above: Result Comment: Canc elled via OM: Order cancelled - Patient discharged Performed By: #### L 100.0100, L500.4050 ####[facility] [address] [place], [address] GLU Normal 70-99 [facility] Comment on above: Result Comment: Canc elled via OM: Order cancelled - Patient discharged Performed By: #### L 100.0100, L500.4050 ####[facility] [address] [place], [address] Potassium Normal 3.3-5.1 [facility] Comment on above: Result Comment: Canc elled via OM: Order cancelled - Patient discharged Performed By: #### L 100.0100, L500.4050 ####[facility] [address] [place], [address] T BILI Normal 0.00-1.30 [facility] Comment on above: Result Comment: Canc elled via OM: Order cancelled - Patient discharged Performed By: #### L 100.0100, L500.4050 ####[facility] [address] [place], [address] T PROT Normal 5.9-8.4 [facility] Comment on above: Result Comment: Canc elled via OM: Order cancelled - Patient discharged Performed By: #### L 100.0100, L500.4050 ####[facility] [address] [place], [address] Comprehensive Metabolic Profil Normal 133-145 [facility] Comment on above: Result Comment: Canc elled via OM: Order cancelled - Patient discharged Performed By: #### L 100.0100, L500.4050 ####[facility] [address] [place], [address] Absolute lymphocyte countOrd ered By: Canelo Myers on 07-20-2025 Lymphocytes Auto (Unsp spec) [#/Vol] 0.83 10*3/uL 0.83-4.51 [facility] Anion gap in Serum or Plasma Ordered By: Canelo Myers on 07-20-2025 Anion gap [Moles/Vol] 10 mmol/L 5-15 [facility] Automated lymphocyte count a s percentage of total leukocytesOrdered By: Canelo Myers on 07-20-2025 Lymphocytes/100 WBC Auto (Unsp spec) 19.5 % 19-41 [facility] BUN/creatinine ratioOrdered By: Canelo Myers on 07-20-2025 Urea nitrogen/Creatinine [Mass ratio] 10.1 mg/mg 10-20 [facility] Basophil percentageOrdered B y: Canelo Myers on 07-20-2025 Basophils/100 WBC (Bld) 0.2 % 0-1 [facility] Bedside Glucoseon 07-20-2025 FINGERSTICK GLU 217 mg/dL High 74-106 [facility] Comment on above: Result Comment: CHAUNCEY WOODENT OF PATIENT CARE PER NURSING PROTOCOL Performed By: #### L 501.080 ####[facility] [address] [place], [address] FINGERSTICK GLU 111 mg/dL High 74-106 [facility] Comment on above: Result Comment: CHAUNCEY RIZO OF PATIENT CARE PER NURSING PROTOCOL Performed By: #### L 501.080 ####[facility] [address] [place], [address] Bilirubin, totalOrdered By: Canelo Myers on 07-20-2025 Bilirubin [Mass/Vol] 0.86 mg/dL 0.00-1.30 [facility] CBC W/Diff, Automatedon 06-30 Absolute Lymph 0.83 X10 3/uL Normal 0.83-4.51 [facility] Comment on above: Performed By: #### L 100.0100, L500.4050 ####[facility] [address] [place], [address] Absolute Neut 2.8 X10 3/uL Normal 2.0-7.7 [facility] Comment on above: Performed By: #### L 100.0100, L500.4050 ####[facility] [address] [place], [address] Basophils/100 WBC (Bld) 0.2 % Normal 0-1 [facility] Comment on above: Performed By: #### L 100.0100, L500.4050 ####[facility] [address] [place], [address] Eosinophils/100 WBC (Bld) 1.6 % Normal 0-5 [facility] Comment on above: Performed By: #### L 100.0100, L500.4050 ####[facility] [address] [place], [address] Erythrocyte distribution width (RBC) [Ratio] 15.2 % High 11.6-14.6 [facility] Comment on above: Performed By: #### L 100.0100, L500.4050 ####[facility] [address] [place], [address] Hematocrit (Bld) [Volume fraction] 29.2 % Low 37-47 [facility] Comment on above: Performed By: #### L 100.0100, L500.4050 ####[facility] [address] [place], [address] Hemoglobin (Bld) [Mass/Vol] 9.6 g/dL Low 12.0-15.0 [facility] Comment on above: Performed By: #### L 100.0100, L500.4050 ####[facility] [address] [place], [address] IG% 0.200 Normal 0.0-0.9 [facility] Comment on above: Result Comment: IG% - Immature Granulocytes (promyelocytes, myelocytes andmetamyelocytes) > 1% indicates that a LEFT SHIFT is Present. Performed By: #### L 100.0100, L500.4050 ####[facility] [address] [place], [address] Lymphocytes/100 WBC (Bld) 19.5 % Normal 19-41 [facility] Comment on above: Performed By: #### L 100.0100, L500.4050 ####[facility] [address] [place], [address] MCH (RBC) [Entitic mass] 33.8 pg High 27.0-32.0 [facility] Comment on above: Performed By: #### L 100.0100, L500.4050 ####[facility] [address] [place], [address] MCHC (RBC) [Mass/Vol] 32.9 g/dL Normal 32-36 [facility] Comment on above: Performed By: #### L 100.0100, L500.4050 ####[facility] [address] [place], [address] MCV (RBC) [Entitic vol] 102.8 fL High 81-99 [facility] Comment on above: Performed By: #### L 100.0100, L500.4050 ####[facility] [address] [place], [address] Monocytes/100 WBC (Bld) 11.8 % High 0-10 [facility] Comment on above: Performed By: #### L 100.0100, L500.4050 ####[facility] [address] [place], [address] Neutrophils/100 WBC (Bld) 66.7 % Normal 47-70 [facility] Comment on above: Performed By: #### L 100.0100, L500.4050 ####[facility] [address] [place], [address] Nucleated RBC (Bld) [#/Vol] 0 10*3/uL Normal 0-5 [facility] Comment on above: Performed By: #### L 100.0100, L500.4050 ####[facility] [address] [place], [address] Platelet mean volume (Bld) [Entitic vol] 10.9 fL Normal 6.2-12.0 [facility] Comment on above: Performed By: #### L 100.0100, L500.4050 ####[facility] [address] [place], [address] Platelets (Bld) [#/Vol] 114 10*3/uL Low 150-450 [facility] Comment on above: Performed By: #### L 100.0100, L500.4050 ####[facility] [address] [place], [address] RBC (Bld) [#/Vol] 2.84 10*6/uL Low 4.2-5.4 [facility] Comment on above: Performed By: #### L 100.0100, L500.4050 ####[facility] [address] [place], [address] RDW SD 57.6 fl High 35.1-43.9 [facility] Comment on above: Performed By: #### L 100.0100, L500.4050 ####[facility] [address] [place], [address] WBC (Bld) [#/Vol] 4.3 10*3/uL Low 4.4-11.0 [facility] Comment on above: Performed By: #### L 100.0100, L500.4050 ####[facility] [address] [place], [address] Carbon dioxide, total [Moles /volume] in Central venous bloodOrdered By: Canelo Myers on 07-20-2025 CO2 [Moles/Vol] 27.0 mmol/L 21.0-32.0 [facility] Chloride assayOrdered By: Henrry Myers on 07-20-2025 Chloride [Moles/Vol] 103 mmol/L 98-108 [facility] Comprehensive Metabolic Prof ilon 07-20-2025 Albumin [Mass/Vol] 3.0 g/dL Low 3.5-5.0 [facility] Comment on above: Performed By: #### L 100.0100, L500.4050 ####[facility] [address] [place], [address] Albumin/Globulin [Mass ratio] 1.4 {ratio} Normal 0.9-2.4 [facility] Comment on above: Performed By: #### L 100.0100, L500.4050 ####[facility] [address] [place], [address] ALK PHOS 134 U/L High 35-104 [facility] Comment on above: Performed By: #### L 100.0100, L500.4050 ####[facility] [address] [place], [address] ALT [Catalytic activity/Vol] 114 U/L High <=34 [facility] Comment on above: Performed By: #### L 100.0100, L500.4050 ####[facility] [address] [place], [address] AST [Catalytic activity/Vol] 136 U/L High <=31 [facility] Comment on above: Performed By: #### L 100.0100, L500.4050 ####[facility] [address] [place], [address] Bilirubin [Mass/Vol] 0.86 mg/dL Normal 0.00-1.30 [facility] Comment on above: Performed By: #### L 100.0100, L500.4050 ####[facility] [address] [place], [address] BUN/CRE 10.1 RATIO Normal 10-20 [facility] Comment on above: Performed By: #### L 100.0100, L500.4050 ####[facility] [address] [place], [address] Calcium [Mass/Vol] 7.6 mg/dL Normal 7.6-11.0 [facility] Comment on above: Performed By: #### L 100.0100, L500.4050 ####[facility] [address] [place], [address] Chloride [Moles/Vol] 103 mmol/L Normal 98-108 [facility] Comment on above: Performed By: #### L 100.0100, L500.4050 ####[facility] [address] [place], [address] CO2 [Moles/Vol] 27.0 mmol/L Normal 21.0-32.0 [facility] Comment on above: Performed By: #### L 100.0100, L500.4050 ####[facility] [address] [place], [address] Creatinine [Mass/Vol] 0.40 mg/dL Low 0.70-1.20 [facility] Comment on above: Performed By: #### L 100.0100, L500.4050 ####[facility] [address] [place], [address] ECRCL 148.53 ml/min Normal 50-250 [facility] Comment on above: Performed By: #### L 100.0100, L500.4050 ####[facility] [address] [place], [address] GAP 10 Normal 5-15 [facility] Comment on above: Performed By: #### L 100.0100, L500.4050 ####[facility] [address] [place], [address] GFR/1.73 sq M.predicted among non-blacks MDRD (S/P/Bld) [Vol rate/Area] 122 mL/min/{1.73_m2} Normal >60 [facility] Comment on above: Result Comment: mL/m in/1.73m2 CKD-EPI Creatinine Equation (2020) Performed By: #### L 100.0100, L500.4050 ####[facility] [address] [place], [address] Globulin (S) [Mass/Vol] 2.1 g/dL Low 2.2-4.2 [facility] Comment on above: Performed By: #### L 100.0100, L500.4050 ####[facility] [address] [place], [address] Glucose [Mass/Vol] 107 mg/dL High 70-99 [facility] Comment on above: Performed By: #### L 100.0100, L500.4050 ####[facility] [address] [place], [address] Potassium [Moles/Vol] 3.6 mmol/L Normal 3.3-5.1 [facility] Comment on above: Performed By: #### L 100.0100, L500.4050 ####[facility] [address] [place], [address] Sodium [Moles/Vol] 140 mmol/L Normal 133-145 [facility] Comment on above: Performed By: #### L 100.0100, L500.4050 ####[facility] [address] [place], [address] T PROT 5.1 g/dL Low 5.9-8.4 [facility] Comment on above: Performed By: #### L 100.0100, L500.4050 ####[facility] [address] [place], [address] Urea nitrogen [Mass/Vol] 4 mg/dL Normal 4-19 [facility] Comment on above: Performed By: #### L 100.0100, L500.4050 ####[facility] [address] [place], [address] Eosinophil percentageOrdered By: Canelo Myers on 07-20-2025 Eosinophils/100 WBC (Bld) 1.6 % 0-5 [facility] Erythrocyte distribution wid th ratioOrdered By: Canelo Myers on 07-20-2025 Erythrocyte distribution width (RBC) [Ratio] 15.2 % High 11.6-14.6 [facility] Erythrocyte distribution wid th standard deviationOrdered By: Canelo Myers on 07-20-2025 Erythrocyte distribution width (RBC) [Ratio] 57.6 fl High 35.1-43.9 [facility] Glomerular filtration rate ( GFR) estimation/1.73 sq m using serum, plasma, or whole bOrdered By: Canelo Myers on 07-20-2025 GFR/1.73 sq M.predicted among non-blacks MDRD (S/P/Bld) [Vol rate/Area] 122 mL/min/{1.73_m2} >60 [facility] at [facility] deOrdered By: Canelo Myers on 07-20-2025 Glucose [Mass/Vol] 217 mg/dL High 74-106 [facility] Hematocrit Auto (Bld) [Volum e fraction]Ordered By: Canelo Myers on 07-20-2025 Hematocrit (Bld) [Volume fraction] 29.2 % Low 37-47 [facility] Hemoglobin measurementOrdere d By: Canelo Myers on 07-20-2025 Hemoglobin (Bld) [Mass/Vol] 9.6 g/dL Low 12.0-15.0 [facility] Immature granulocytes/100 WB C Auto (Bld)Ordered By: Canelo Myers on 07-20-2025 Immature granulocytes/100 WBC (Bld) 0.200 % 0.0-0.9 [facility] MCV (mean corpuscular volume ) determinationOrdered By: Canelo Myers on 07-20-2025 MCV (RBC) [Entitic vol] 102.8 fL High 81-99 [facility] Mean corpuscular hemoglobin (MCH) determinationOrdered By: Canelo Myers on 07-20-2025 MCH (RBC) [Entitic mass] 33.8 pg High 27.0-32.0 [facility] Monocyte percentageOrdered B y: Canelo Myers on 07-20-2025 Monocytes/100 WBC (Bld) 11.8 % High 0-10 [facility] Neutrophil percentageOrdered By: Canelo Myers on 07-20-2025 Neutrophils/100 WBC (Bld) 66.7 % 47-70 [facility] No Panel InformationOrdered By: Canelo Myers on 07-20-2025 136 U/L High <32 [facility] Platelet countOrdered By: Henrry Myers on 07-20-2025 Platelets (Bld) [#/Vol] 114 10*3/uL Low 150-450 [facility] Potassium measurement (mass/ volume)Ordered By: Canelo Myers on 07-20-2025 Potassium (Unsp spec) [Mass/Vol] 3.6 mmol/L 3.3-5.1 [facility] RBC Auto (Bld) [#/Vol]Ordere d By: Canelo Myers on 07-20-2025 RBC (Bld) [#/Vol] 2.84 10*6/uL Low 4.2-5.4 [facility] Serum creatinine measurement (mass/volume)Ordered By: Canelo Myers on 07-20-2025 Creatinine [Mass/Vol] 0.40 mg/dL Low 0.70-1.20 [facility] Serum globulin measurementOr dered By: Canelo Myers on 07-20-2025 Globulin (S) [Mass/Vol] 2.1 g/dL Low 2.2-4.2 [facility] Serum glucose measurement (m ass/volume)Ordered By: Canelo Myers on 07-20-2025 Glucose [Mass/Vol] 107 mg/dL High 70-99 [facility] Serum or plasma alanine wilkerson otransferase (ALT) measurementOrdered By: Canelo Myers on 07-20-2025 ALT [Catalytic activity/Vol] 114 U/L High <35 [facility] Serum or plasma albumin alphonso urement (mass/volume)Ordered By: Canelo Myers on 07-20-2025 Albumin [Mass/Vol] 3.0 g/dL Low 3.5-5.0 [facility] Serum or plasma albumin/glob ulin mass ratioOrdered By: Canelo Myers on 07-20-2025 Albumin/Globulin [Mass ratio] 1.4 {ratio} 0.9-2.4 [facility] Serum or plasma alkaline trinity sphatase measurementOrdered By: Canelo Myers on 07-20-2025 ALP [Catalytic activity/Vol] 134 U/L High 35-104 [facility] Serum or plasma calcium alphonso urement (mass/volume)Ordered By: Canelo Myers on 07-20-2025 Calcium [Mass/Vol] 7.6 mg/dL 7.6-11.0 [facility] Serum or plasma urea nitroge n measurement (mass/volume)Ordered By: Canelo Myers on 07-20-2025 Urea nitrogen [Mass/Vol] 4 mg/dL 4-19 [facility] Sodium levelOrdered By: Ganesh Myers on 07-20-2025 Sodium [Moles/Vol] 140 mmol/L 133-145 [facility] Total proteinOrdered By: Guido Myers on 07-20-2025 Protein [Mass/Vol] 5.1 g/dL Low 5.9-8.4 [facility] White blood cell (WBC) count Ordered By: Canelo Myers on 07-20-2025 WBC (Bld) [#/Vol] 4.3 10*3/uL Low 4.4-11.0 [facility] Bedside Glucoseon 07-19-2025 FINGERSTICK GLU 121 mg/dL High 74-106 [facility] Comment on above: Result Comment: CHAUNCEY GEMENT OF PATIENT CARE PER NURSING PROTOCOL Performed By: #### L 501.080 ####[facility] [address] [place], [address] FINGERSTICK GLU 91 mg/dL Normal 74-106 [facility] Comment on above: Result Comment: CHAUNCEY GEMENT OF PATIENT CARE PER NURSING PROTOCOL Performed By: #### L 501.080 ####[facility] [address] [place], [address] FINGERSTICK GLU 140 mg/dL High 74-106 [facility] Comment on above: Result Comment: CHAUNCEY GEMENT OF PATIENT CARE PER NURSING PROTOCOL Performed By: #### L 501.080 ####[facility] [address] [place], [address] FINGERSTICK GLU 94 mg/dL Normal 74-106 [facility] Comment on above: Result Comment: CHAUNCEY GEMENT OF PATIENT CARE PER NURSING PROTOCOL Performed By: #### L 501.080 ####[facility] [address] [place], [address] CBC W/Diff, Automatedon - PLT EST SLT DEC Normal ADEQ [facility] Comment on above: Performed By: #### L 500.4050, L100.0100 ####[facility] [address] [place], [address] Comprehensive Metabolic Prof ilon 07-19-2025 Albumin [Mass/Vol] 3.0 g/dL Low 3.5-5.0 [facility] Comment on above: Performed By: #### L 500.4050, L100.0100 ####[facility] [address] [place], [address] Albumin/Globulin [Mass ratio] 1.4 {ratio} Normal 0.9-2.4 [facility] Comment on above: Performed By: #### L 500.4050, L100.0100 ####[facility] [address] [place], [address] ALK PHOS 133 U/L High 35-104 [facility] Comment on above: Performed By: #### L 500.4050, L100.0100 ####[facility] [address] [place], [address] ALT [Catalytic activity/Vol] 150 U/L High <=34 [facility] Comment on above: Performed By: #### L 500.4050, L100.0100 ####[facility] [address] [place], [address] AST [Catalytic activity/Vol] 289 U/L High <=31 [facility] Comment on above: Performed By: #### L 500.4050, L100.0100 ####[facility] [address] [place], [address] Bilirubin [Mass/Vol] 1.07 mg/dL Normal 0.00-1.30 [facility] Comment on above: Performed By: #### L 500.4050, L100.0100 ####[facility] [address] [place], [address] BUN/CRE 6.1 RATIO Low 10-20 [facility] Comment on above: Performed By: #### L 500.4050, L100.0100 ####[facility] [address] [place], [address] Calcium [Mass/Vol] 7.0 mg/dL Low 7.6-11.0 [facility] Comment on above: Performed By: #### L 500.4050, L100.0100 ####[facility] [address] [place], [address] Chloride [Moles/Vol] 98 mmol/L Normal 98-108 [facility] Comment on above: Performed By: #### L 500.4050, L100.0100 ####[facility] [address] [place], [address] CO2 [Moles/Vol] 25.2 mmol/L Normal 21.0-32.0 [facility] Comment on above: Performed By: #### L 500.4050, L100.0100 ####[facility] [address] [place], [address] Creatinine [Mass/Vol] 0.42 mg/dL Low 0.70-1.20 [facility] Comment on above: Performed By: #### L 500.4050, L100.0100 ####[facility] [address] [place], [address] ECRCL 141.45 ml/min Normal 50-250 [facility] Comment on above: Performed By: #### L 500.4050, L100.0100 ####[facility] [address] [place], [address] GAP 10 Normal 5-15 [facility] Comment on above: Performed By: #### L 500.4050, L100.0100 ####[facility] [address] [place], [address] GFR/1.73 sq M.predicted among non-blacks MDRD (S/P/Bld) [Vol rate/Area] 121 mL/min/{1.73_m2} Normal >60 [facility] Comment on above: Result Comment: mL/m in/1.73m2 CKD-EPI Creatinine Equation (2020) Performed By: #### L 500.4050, L100.0100 ####[facility] [address] [place], [address] Globulin (S) [Mass/Vol] 2.1 g/dL Low 2.2-4.2 [facility] Comment on above: Performed By: #### L 500.4050, L100.0100 ####[facility] [address] [place], [address] Glucose [Mass/Vol] 93 mg/dL Normal 70-99 [facility] Comment on above: Performed By: #### L 500.4050, L100.0100 ####[facility] [address] [place], [address] Potassium [Moles/Vol] 3.5 mmol/L Normal 3.3-5.1 [facility] Comment on above: Performed By: #### L 500.4050, L100.0100 ####[facility] [address] [place], [address] Sodium [Moles/Vol] 134 mmol/L Normal 133-145 [facility] Comment on above: Performed By: #### L 500.4050, L100.0100 ####[facility] [address] [place], [address] T PROT 5.0 g/dL Low 5.9-8.4 [facility] Comment on above: Performed By: #### L 500.4050, L100.0100 ####[facility] [address] [place], [address] Urea nitrogen [Mass/Vol] 3 mg/dL Low 4-19 [facility] Comment on above: Performed By: #### L 500.4050, L100.0100 ####[facility] [address] [place], [address] Platelet estimateOrdered By: Canelo Myers on 07-19-2025 Platelets LM Ql (Bld) SLT DEC ADEQ [facility] Bedside Glucoseon 07-18-2025 FINGERSTICK GLU 104 mg/dL Normal 74-106 [facility] Comment on above: Result Comment: CHAUNCEY GEMENT OF PATIENT CARE PER NURSING PROTOCOL Performed By: #### L 501.080 ####[facility] [address] [place], [address] FINGERSTICK GLU 108 mg/dL High 74-106 [facility] Comment on above: Result Comment: CHAUNCEY GEMENT OF PATIENT CARE PER NURSING PROTOCOL Performed By: #### L 501.080 ####[facility] [address] [place], [address] FINGERSTICK GLU 109 mg/dL High 74-106 [facility] Comment on above: Result Comment: CHAUNCEY GEMENT OF PATIENT CARE PER NURSING PROTOCOL Performed By: #### L 501.080 ####[facility] [address] [place], [address] FINGERSTICK GLU 84 mg/dL Normal 74-106 [facility] Comment on above: Result Comment: CHAUNCEY GEMENT OF PATIENT CARE PER NURSING PROTOCOL Performed By: #### L 501.080 ####[facility] [address] [place], [address] CBC W/Diff, Automatedon 06-30 Absolute Lymph 0.64 X10 3/uL Low 0.83-4.51 [facility] Comment on above: Performed By: #### L 500.4050, L100.0100, L501.5200, L501.2300 ####[facility] [address] [place], [address] Absolute Neut 3.3 X10 3/uL Normal 2.0-7.7 [facility] Comment on above: Performed By: #### L 500.4050, L100.0100, L501.5200, L501.2300 ####[facility] [address] [place], [address] Basophils/100 WBC (Bld) 0.4 % Normal 0-1 [facility] Comment on above: Performed By: #### L 500.4050, L100.0100, L501.5200, L501.2300 ####[facility] [address] [place], [address] Eosinophils/100 WBC (Bld) 2.4 % Normal 0-5 [facility] Comment on above: Performed By: #### L 500.4050, L100.0100, L501.5200, L501.2300 ####[facility] [address] [place], [address] Erythrocyte distribution width (RBC) [Ratio] 15.8 % High 11.6-14.6 [facility] Comment on above: Performed By: #### L 500.4050, L100.0100, L501.5200, L501.2300 ####[facility] [address] [place], [address] Hematocrit (Bld) [Volume fraction] 32.6 % Low 37-47 [facility] Comment on above: Performed By: #### L 500.4050, L100.0100, L501.5200, L501.2300 ####[facility] [address] [place], [address] Hemoglobin (Bld) [Mass/Vol] 10.8 g/dL Low 12.0-15.0 [facility] Comment on above: Performed By: #### L 500.4050, L100.0100, L501.5200, L501.2300 ####[facility] [address] [place], [address] IG% 0.700 Normal 0.0-0.9 [facility] Comment on above: Result Comment: IG% - Immature Granulocytes (promyelocytes, myelocytes andmetamyelocytes) > 1% indicates that a LEFT SHIFT is Present. Performed By: #### L 500.4050, L100.0100, L501.5200, L501.2300 ####[facility] [address] [place], [address] Lymphocytes/100 WBC (Bld) 14.1 % Low 19-41 [facility] Comment on above: Performed By: #### L 500.4050, L100.0100, L501.5200, L501.2300 ####[facility] [address] [place], [address] MCH (RBC) [Entitic mass] 33.9 pg High 27.0-32.0 [facility] Comment on above: Performed By: #### L 500.4050, L100.0100, L501.5200, L501.2300 ####[facility] [address] [place], [address] MCHC (RBC) [Mass/Vol] 33.1 g/dL Normal 32-36 [facility] Comment on above: Performed By: #### L 500.4050, L100.0100, L501.5200, L501.2300 ####[facility] [address] [place], [address] MCV (RBC) [Entitic vol] 102.2 fL High 81-99 [facility] Comment on above: Performed By: #### L 500.4050, L100.0100, L501.5200, L501.2300 ####[facility] [address] [place], [address] Monocytes/100 WBC (Bld) 9.2 % Normal 0-10 [facility] Comment on above: Performed By: #### L 500.4050, L100.0100, L501.5200, L501.2300 ####[facility] [address] [place], [address] Neutrophils/100 WBC (Bld) 73.2 % High 47-70 [facility] Comment on above: Performed By: #### L 500.4050, L100.0100, L501.5200, L501.2300 ####[facility] [address] [place], [address] Nucleated RBC (Bld) [#/Vol] 0 10*3/uL Normal 0-5 [facility] Comment on above: Performed By: #### L 500.4050, L100.0100, L501.5200, L501.2300 ####[facility] [address] [place], [address] Platelet mean volume (Bld) [Entitic vol] 10.0 fL Normal 6.2-12.0 [facility] Comment on above: Performed By: #### L 500.4050, L100.0100, L501.5200, L501.2300 ####[facility] [address] [place], [address] Platelets (Bld) [#/Vol] 103 10*3/uL Low 150-450 [facility] Comment on above: Performed By: #### L 500.4050, L100.0100, L501.5200, L501.2300 ####[facility] [address] [place], [address] RBC (Bld) [#/Vol] 3.19 10*6/uL Low 4.2-5.4 [facility] Comment on above: Performed By: #### L 500.4050, L100.0100, L501.5200, L501.2300 ####[facility] [address] [place], [address] RDW SD 58.9 fl High 35.1-43.9 [facility] Comment on above: Performed By: #### L 500.4050, L100.0100, L501.5200, L501.2300 ####[facility] [address] [place], [address] WBC (Bld) [#/Vol] 4.6 10*3/uL Normal 4.4-11.0 [facility] Comment on above: Performed By: #### L 500.4050, L100.0100, L501.5200, L501.2300 ####[facility] [address] [place], [address] Comprehensive Metabolic [facility] 07-18-2025 Albumin [Mass/Vol] 3.3 g/dL Low 3.5-5.0 [facility] Comment on above: Performed By: #### L 500.4050, L100.0100, L501.5200, L501.2300 ####[facility] [address] [place], [address] Albumin/Globulin [Mass ratio] 1.5 {ratio} Normal 0.9-2.4 [facility] Comment on above: Performed By: #### L 500.4050, L100.0100, L501.5200, L501.2300 ####[facility] [address] [place], [address] ALK PHOS 176 U/L High 35-104 [facility] Comment on above: Performed By: #### L 500.4050, L100.0100, L501.5200, L501.2300 ####[facility] [address] [place], [address] ALT [Catalytic activity/Vol] 223 U/L High <=34 [facility] Comment on above: Performed By: #### L 500.4050, L100.0100, L501.5200, L501.2300 ####[facility] [address] [place], [address] AST [Catalytic activity/Vol] 788 U/L High <=31 [facility] Comment on above: Performed By: #### L 500.4050, L100.0100, L501.5200, L501.2300 ####[facility] [address] [place], [address] Bilirubin [Mass/Vol] 1.36 mg/dL High 0.00-1.30 [facility] Comment on above: Performed By: #### L 500.4050, L100.0100, L501.5200, L501.2300 ####[facility] [address] [place], [address] BUN/CRE 16.1 RATIO Normal 10-20 [facility] Comment on above: Performed By: #### L 500.4050, L100.0100, L501.5200, L501.2300 ####[facility] [address] [place], [address] Calcium [Mass/Vol] 7.0 mg/dL Low 7.6-11.0 [facility] Comment on above: Performed By: #### L 500.4050, L100.0100, L501.5200, L501.2300 ####[facility] [address] [place], [address] Chloride [Moles/Vol] 100 mmol/L Normal 98-108 [facility] Comment on above: Performed By: #### L 500.4050, L100.0100, L501.5200, L501.2300 ####[facility] [address] [place], [address] CO2 [Moles/Vol] 24.0 mmol/L Normal 21.0-32.0 [facility] Comment on above: Performed By: #### L 500.4050, L100.0100, L501.5200, L501.2300 ####[facility] [address] [place], [address] Creatinine [Mass/Vol] 0.32 mg/dL Low 0.70-1.20 [facility] Comment on above: Performed By: #### L 500.4050, L100.0100, L501.5200, L501.2300 ####[facility] [address] [place], [address] ECRCL 185.66 ml/min Normal 50-250 [facility] Comment on above: Performed By: #### L 500.4050, L100.0100, L501.5200, L501.2300 ####[facility] [address] [place], [address] GAP 13 Normal 5-15 [facility] Comment on above: Performed By: #### L 500.4050, L100.0100, L501.5200, L501.2300 ####[facility] [address] [place], [address] GFR/1.73 sq M.predicted among non-blacks MDRD (S/P/Bld) [Vol rate/Area] 128 mL/min/{1.73_m2} Normal >60 [facility] Comment on above: Result Comment: mL/m in/1.73m2 CKD-EPI Creatinine Equation (2020) Performed By: #### L 500.4050, L100.0100, L501.5200, L501.2300 ####[facility] [address] [place], [address] Globulin (S) [Mass/Vol] 2.2 g/dL Normal 2.2-4.2 [facility] Comment on above: Performed By: #### L 500.4050, L100.0100, L501.5200, L501.2300 ####[facility] [address] [place], [address] Glucose [Mass/Vol] 76 mg/dL Normal 70-99 [facility] Comment on above: Performed By: #### L 500.4050, L100.0100, L501.5200, L501.2300 ####[facility] [address] [place], [address] Potassium [Moles/Vol] 3.6 mmol/L Normal 3.3-5.1 [facility] Comment on above: Performed By: #### L 500.4050, L100.0100, L501.5200, L501.2300 ####[facility] [address] [place], [address] Sodium [Moles/Vol] 137 mmol/L Normal 133-145 [facility] Comment on above: Performed By: #### L 500.4050, L100.0100, L501.5200, L501.2300 ####[facility] [address] [place], [address] T PROT 5.5 g/dL Low 5.9-8.4 [facility] Comment on above: Performed By: #### L 500.4050, L100.0100, L501.5200, L501.2300 ####[facility] [address] [place], [address] Urea nitrogen [Mass/Vol] 5 mg/dL Normal 4-19 [facility] Comment on above: Performed By: #### L 500.4050, L100.0100, L501.5200, L501.2300 ####[facility] [address] [place], [address] Lipaseon 07-18-2025 Lipase [Catalytic activity/Vol] 1128 U/L High 13-75 [facility] Comment on above: Result Comment: Lucie schultz note:LIPASE revised reference range effective 23.New Lipase methodology. Expected to produce lower valuesthan the previous assay method.NEW Reference Range: 13 - 75 U/L Performed By: #### L 501.2450 ####[facility] [address] [place], [address] Magnesiumon 07-18-2025 Magnesium [Mass/Vol] 1.7 mg/dL Normal 1.5-2.2 [facility] Comment on above: Performed By: #### L 500.4050, L100.0100, L501.5200, L501.2300 ####[facility] [address] [place], [address] Magnesium measurement (mass/ volume)Ordered By: Canelo Myers on 07-18-2025 Magnesium (Unsp spec) [Mass/Vol] 1.7 mg/dL 1.5-2.2 [facility] Phosphoruson 07-18-2025 Phosphate [Mass/Vol] 2.7 mg/dL Normal 2.7-4.5 [facility] Comment on above: Performed By: #### L 500.4050, L100.0100, L501.5200, L501.2300 ####[facility] [address] [place], [address] Abdomen/Pelvis W IV Cont ONL Yon 07-17-2025 Abdomen/Pelvis W IV Cont ONLY Normal [facility] Absolute lymphocyte countOrd ered By: Francisco Colon on 07-17-2025 Lymphocytes Auto (Unsp spec) [#/Vol] 0.78 10*3/uL Low 0.83-4.51 [facility] Alcohol, Blood (Medical)-Ser umon 07-17-2025 SERUM ETOH 34.9 mg/dL High <=10.0 [facility] Comment on above: Result Comment: This test is for medical purposes only. The legaldefinition of intoxication varies according to local law. Performed By: #### L 501.9100 ####[facility] [address] [place], [address] Amylaseon 07-17-2025 VENANCIO 898 U/L High 28-100 [facility] Comment on above: Performed By: #### L 500.4050, L501.2450, L501.2400 ####[facility] [address] [place], [address] Anion gap in Serum or Plasma Ordered By: Francisco Colon on 07-17-2025 Anion gap [Moles/Vol] 19 mmol/L High 5-15 [facility] Automated lymphocyte count a s percentage of total leukocytesOrdered By: Francisco Colon on 07-17-2025 Lymphocytes/100 WBC Auto (Unsp spec) 11.2 % Low 19-41 [facility] BUN/creatinine ratioOrdered By: Francisco Colon on 07-17-2025 Urea nitrogen/Creatinine [Mass ratio] 15.5 mg/mg 10-20 [facility] Basophil percentageOrdered B y: Francisco oClon on 07-17-2025 Basophils/100 WBC (Bld) 0.4 % 0-1 [facility] Bedside Glucoseon 07-17-2025 FINGERSTICK GLU 151 mg/dL High 74-106 [facility] Comment on above: Result Comment: CHAUNCEY GEMENT OF PATIENT CARE PER NURSING PROTOCOL Performed By: #### L 501.080 ####[facility] [address] [place], [address] FINGERSTICK GLU 71 mg/dL Low 74-106 [facility] Comment on above: Result Comment: CHAUNCEY GEMENT OF PATIENT CARE PER NURSING PROTOCOL Performed By: #### L 501.080 ####[facility] [address] [place], [address] Bilirubin Test strip Ql (U)O rdered By: Francisco Colon on 07-17-2025 Bilirubin Ql (U) Negative Negative [facility] Bilirubin, totalOrdered By: Francisco Colon on 07-17-2025 Bilirubin [Mass/Vol] 0.43 mg/dL 0.00-1.30 [facility] CBC W/Diff, Automatedon 08- Absolute Lymph 0.78 X10 3/uL Low 0.83-4.51 [facility] Comment on above: Performed By: #### L 100.0100 ####[facility] [address] [place], [address] Absolute Neut 5.6 X10 3/uL Normal 2.0-7.7 [facility] Comment on above: Performed By: #### L 100.0100 ####[facility] [address] [place], [address] Basophils/100 WBC (Bld) 0.4 % Normal 0-1 [facility] Comment on above: Performed By: #### L 100.0100 ####[facility] [address] [place], [address] Eosinophils/100 WBC (Bld) 0.3 % Normal 0-5 [facility] Comment on above: Performed By: #### L 100.0100 ####[facility] [address] [place], [address] Erythrocyte distribution width (RBC) [Ratio] 15.9 % High 11.6-14.6 [facility] Comment on above: Performed By: #### L 100.0100 ####[facility] [address] [place], [address] Hematocrit (Bld) [Volume fraction] 38.5 % Normal 37-47 [facility] Comment on above: Performed By: #### L 100.0100 ####[facility] [address] [place], [address] Hemoglobin (Bld) [Mass/Vol] 13.2 g/dL Normal 12.0-15.0 [facility] Comment on above: Performed By: #### L 100.0100 ####[facility] [address] [place], [address] IG% 0.600 Normal 0.0-0.9 [facility] Comment on above: Result Comment: IG% - Immature Granulocytes (promyelocytes, myelocytes andmetamyelocytes) > 1% indicates that a LEFT SHIFT is Present. Performed By: #### L 100.0100 ####[facility] [address] [place], [address] Lymphocytes/100 WBC (Bld) 11.2 % Low 19-41 [facility] Comment on above: Performed By: #### L 100.0100 ####[facility] [address] [place], [address] MCH (RBC) [Entitic mass] 33.8 pg High 27.0-32.0 [facility] Comment on above: Performed By: #### L 100.0100 ####[facility] [address] [place], [address] MCHC (RBC) [Mass/Vol] 34.3 g/dL Normal 32-36 [facility] Comment on above: Performed By: #### L 100.0100 ####[facility] [address] [place], [address] MCV (RBC) [Entitic vol] 98.7 fL Normal 81-99 [facility] Comment on above: Performed By: #### L 100.0100 ####[facility] [address] [place], [address] Monocytes/100 WBC (Bld) 7.2 % Normal 0-10 [facility] Comment on above: Performed By: #### L 100.0100 ####[facility] [address] [place], [address] Neutrophils/100 WBC (Bld) 80.3 % High 47-70 [facility] Comment on above: Performed By: #### L 100.0100 ####[facility] [address] [place], [address] Nucleated RBC (Bld) [#/Vol] 0 10*3/uL Normal 0-5 [facility] Comment on above: Performed By: #### L 100.0100 ####[facility] [address] [place], [address] Platelet mean volume (Bld) [Entitic vol] 9.7 fL Normal 6.2-12.0 [facility] Comment on above: Performed By: #### L 100.0100 ####[facility] [address] [place], [address] Platelets (Bld) [#/Vol] 150 10*3/uL Normal 150-450 [facility] Comment on above: Performed By: #### L 100.0100 ####[facility] [address] [place], [address] RBC (Bld) [#/Vol] 3.90 10*6/uL Low 4.2-5.4 [facility] Comment on above: Performed By: #### L 100.0100 ####[facility] [address] [place], [address] RDW SD 56.5 fl High 35.1-43.9 [facility] Comment on above: Performed By: #### L 100.0100 ####[facility] [address] [place], [address] WBC (Bld) [#/Vol] 7.0 10*3/uL Normal 4.4-11.0 [facility] Comment on above: Performed By: #### L 100.0100 ####[facility] [address] [place], [address] Carbon dioxide, total [Moles /volume] in Central venous bloodOrdered By: Francisco Colon on 07-17-2025 CO2 [Moles/Vol] 25.6 mmol/L 21.0-32.0 [facility] Chloride assayOrdered By: Peyman Colon on 07-17-2025 Chloride [Moles/Vol] 99 mmol/L 98-108 [facility] Comprehensive Metabolic Prof ilon 07-17-2025 Albumin [Mass/Vol] 3.9 g/dL Normal 3.5-5.0 [facility] Comment on above: Performed By: #### L 500.4050, L501.2450, L501.2400 ####[facility] [address] [place], [address] Albumin/Globulin [Mass ratio] 1.4 {ratio} Normal 0.9-2.4 [facility] Comment on above: Performed By: #### L 500.4050, L501.2450, L501.2400 ####[facility] [address] [place], [address] ALK PHOS 98 U/L Normal 35-104 [facility] Comment on above: Performed By: #### L 500.4050, L501.2450, L501.2400 ####[facility] [address] [place], [address] ALT [Catalytic activity/Vol] 92 U/L High <=34 [facility] Comment on above: Performed By: #### L 500.4050, L501.2450, L501.2400 ####[facility] [address] [place], [address] AST [Catalytic activity/Vol] 165 U/L High <=31 [facility] Comment on above: Performed By: #### L 500.4050, L501.2450, L501.2400 ####[facility] [address] [place], [address] Bilirubin [Mass/Vol] 0.43 mg/dL Normal 0.00-1.30 [facility] Comment on above: Performed By: #### L 500.4050, L501.2450, L501.2400 ####[facility] [address] [place], [address] BUN/CRE 15.5 RATIO Normal 10-20 [facility] Comment on above: Performed By: #### L 500.4050, L501.2450, L501.2400 ####[facility] [address] [place], [address] Calcium [Mass/Vol] 8.6 mg/dL Normal 7.6-11.0 [facility] Comment on above: Performed By: #### L 500.4050, L501.2450, L501.2400 ####[facility] [address] [place], [address] Chloride [Moles/Vol] 99 mmol/L Normal 98-108 [facility] Comment on above: Performed By: #### L 500.4050, L501.2450, L501.2400 ####[facility] [address] [place], [address] CO2 [Moles/Vol] 25.6 mmol/L Normal 21.0-32.0 [facility] Comment on above: Performed By: #### L 500.4050, L501.2450, L501.2400 ####[facility] [address] [place], [address] Creatinine [Mass/Vol] 0.39 mg/dL Low 0.70-1.20 [facility] Comment on above: Performed By: #### L 500.4050, L501.2450, L501.2400 ####[facility] [address] [place], [address] ECRCL 152.33 ml/min Normal 50-250 [facility] Comment on above: Performed By: #### L 500.4050, L501.2450, L501.2400 ####[facility] [address] [place], [address] GAP 19 High 5-15 [facility] Comment on above: Performed By: #### L 500.4050, L501.2450, L501.2400 ####[facility] [address] [place], [address] GFR/1.73 sq M.predicted among non-blacks MDRD (S/P/Bld) [Vol rate/Area] 123 mL/min/{1.73_m2} Normal >60 [facility] Comment on above: Result Comment: mL/m in/1.73m2 CKD-EPI Creatinine Equation (2020) Performed By: #### L 500.4050, L501.2450, L501.2400 ####[facility] [address] [place], [address] Globulin (S) [Mass/Vol] 2.7 g/dL Normal 2.2-4.2 [facility] Comment on above: Performed By: #### L 500.4050, L501.2450, L501.2400 ####[facility] [address] [place], [address] Glucose [Mass/Vol] 120 mg/dL High 70-99 [facility] Comment on above: Performed By: #### L 500.4050, L501.2450, L501.2400 ####[facility] [address] [place], [address] Potassium [Moles/Vol] 3.0 mmol/L Low 3.3-5.1 [facility] Comment on above: Performed By: #### L 500.4050, L501.2450, L501.2400 ####[facility] [address] [place], [address] Sodium [Moles/Vol] 144 mmol/L Normal 133-145 [facility] Comment on above: Performed By: #### L 500.4050, L501.2450, L501.2400 ####[facility] [address] [place], [address] T PROT 6.6 g/dL Normal 5.9-8.4 [facility] Comment on above: Performed By: #### L 500.4050, L501.2450, L501.2400 ####[facility] [address] [place], [address] Urea nitrogen [Mass/Vol] 6 mg/dL Normal 4-19 [facility] Comment on above: Performed By: #### L 500.4050, L501.2450, L501.2400 ####[facility] [address] [place], [address] Emergency Department Summary on 07-17-2025 Emergency Department Summary Normal [facility] Eosinophil percentageOrdered By: Francisco Colon on 07-17-2025 Eosinophils/100 WBC (Bld) 0.3 % 0-5 [facility] Erythrocyte distribution wid th ratioOrdered By: Francisco Colon on 07-17-2025 Erythrocyte distribution width (RBC) [Ratio] 15.9 % High 11.6-14.6 [facility] Erythrocyte distribution wid th standard deviationOrdered By: Francisco Colon on 07-17-2025 Erythrocyte distribution width (RBC) [Ratio] 56.5 fl High 35.1-43.9 [facility] Glomerular filtration rate ( GFR) estimation/1.73 sq m using serum, plasma, or whole bOrdered By: Francisco Colon on 07-17-2025 GFR/1.73 sq M.predicted among non-blacks MDRD (S/P/Bld) [Vol rate/Area] 123 mL/min/{1.73_m2} >60 [facility] H AND P Exam - Hospitaliston 07-17-2025 H&P Exam - Hospitalist Normal [facility] Hematocrit Auto (Bld) [Volum e fraction]Ordered By: Francisco Colon on 07-17-2025 Hematocrit (Bld) [Volume fraction] 38.5 % 37-47 [facility] Hemoglobin measurementOrdere d By: Francisco Colon on 07-17-2025 Hemoglobin (Bld) [Mass/Vol] 13.2 g/dL 12.0-15.0 [facility] Immature granulocytes/100 WB C Auto (Bld)Ordered By: Francisco Colon on 07-17-2025 Immature granulocytes/100 WBC (Bld) 0.600 % 0.0-0.9 [facility] Ketones Test strip Ql (U)Ord ered By: Francisco Colon on 07-17-2025 Ketones Ql (U) 5 mg/dl High Negative [facility] Lipaseon 07-17-2025 Lipase [Catalytic activity/Vol] U/L High 13-75 [facility] Comment on above: Result Comment: Lucie schultz note:LIPASE revised reference range effective 23.New Lipase methodology. Expected to produce lower valuesthan the previous assay method.NEW Reference Range: 13 - 75 U/L Performed By: #### L 500.4050, L501.2450, L501.2400 ####[facility] [address] [place], [place], [address] MCV (mean corpuscular volume ) determinationOrdered By: Francisco Colon on 07-17-2025 MCV (RBC) [Entitic vol] 98.7 fL 81-99 [facility] Magnesiumon 07-17-2025 Magnesium [Mass/Vol] 1.1 mg/dL Low 1.5-2.2 [facility] Comment on above: Performed By: #### L 501.2300, L501.5200 ####[facility] [address] [place], [place], [address] Mean corpuscular hemoglobin (MCH) determinationOrdered By: Francisco Colon on 07-17-2025 MCH (RBC) [Entitic mass] 33.8 pg High 27.0-32.0 [facility] Monocyte percentageOrdered B y: Francisco Colon on 07-17-2025 Monocytes/100 WBC (Bld) 7.2 % 0-10 [facility] Mucus LM Ql (Urine sed)Order ed By: Francisco Colon on 07-17-2025 Mucus Ql (Urine sed) 0 SEEN /hpf [facility] Neutrophil percentageOrdered By: Francisco Colon on 07-17-2025 Neutrophils/100 WBC (Bld) 80.3 % High 47-70 [facility] Nitrite Test strip Ql (U)Ord ered By: Francisco Colon on 07-17-2025 Nitrite Ql (U) Negative Negative [facility] No Panel InformationOrdered By: Francisco Colon on 07-17-2025 165 U/L High <32 [facility] Phosphoruson 07-17-2025 Phosphate [Mass/Vol] 4.4 mg/dL Normal 2.7-4.5 [facility] Comment on above: Performed By: #### L 501.2300, L501.5200 ####[facility] [address] [place], [place], [address] Platelet countOrdered By: Peyman Colon on 07-17-2025 Platelets (Bld) [#/Vol] 150 10*3/uL 150-450 [facility] Potassium measurement (mass/ volume)Ordered By: Francisco Colon on 07-17-2025 Potassium (Unsp spec) [Mass/Vol] 3.0 mmol/L Low 3.3-5.1 [facility] ,Serum,hCG Quali.on 07-17-2025 HCG, SERUM QUAL Negative Normal [facility] Comment on above: Performed By: #### L 418.7644 ####[facility] [address] [place], [address] Protein Test strip Ql (U)Ord ered By: Francisco Colon on 07-17-2025 Protein Ql (U) 30 mg/dl High Negative [facility] Prothrombin Time w/INRon INR Coag (PPP) [Relative time] 1.0 {INR} Normal [facility] Comment on above: Performed By: #### L 300.3900 ####[facility] [address] [place], [address] PT Coag (PPP) [Time] 12.9 s Normal 11.7-14.9 [facility] Comment on above: Performed By: #### L 300.3900 ####[facility] [address] [place], [address] Prothrombin timeOrdered By: Canelo Myers on 07-17-2025 PT Coag (PPP) [Time] 12.9 s 11.7-14.9 [facility] RBC Auto (Bld) [#/Vol]Ordere d By: Francisco Colon on 07-17-2025 RBC (Bld) [#/Vol] 3.90 10*6/uL Low 4.2-5.4 [facility] Serum beta-hCG test, qualita tiveOrdered By: Francisco Colon on 07-17-2025 Beta HCG ( test) Ql Negative [facility] Serum creatinine measurement (mass/volume)Ordered By: Francisco Colon on 07-17-2025 Creatinine [Mass/Vol] 0.39 mg/dL Low 0.70-1.20 [facility] Serum globulin measurementOr dered By: Francisco Colon on 07-17-2025 Globulin (S) [Mass/Vol] 2.7 g/dL 2.2-4.2 [facility] Serum glucose measurement (m ass/volume)Ordered By: Francisco Colon on 07-17-2025 Glucose [Mass/Vol] 120 mg/dL High 70-99 [facility] Serum or plasma alanine wilkerson otransferase (ALT) measurementOrdered By: Francisco Colon on 07-17-2025 ALT [Catalytic activity/Vol] 92 U/L High <35 [facility] Serum or plasma albumin alphonso urement (mass/volume)Ordered By: Francisco Colon on 07-17-2025 Albumin [Mass/Vol] 3.9 g/dL 3.5-5.0 [facility] Serum or plasma albumin/glob ulin mass ratioOrdered By: Francisco Colon on 07-17-2025 Albumin/Globulin [Mass ratio] 1.4 {ratio} 0.9-2.4 [facility] Serum or plasma alkaline trinity sphatase measurementOrdered By: Francisco Colon on 07-17-2025 ALP [Catalytic activity/Vol] 98 U/L 35-104 [facility] Serum or plasma amylase alphonso urement (enzymatic activity/volume)Ordered By: Francisco Colon on 07-17-2025 Amylase [Catalytic activity/Vol] 898 U/L High 28-100 [facility] Serum or plasma calcium alphonso urement (mass/volume)Ordered By: Francisco Colon on 07-17-2025 Calcium [Mass/Vol] 8.6 mg/dL 7.6-11.0 [facility] Serum or plasma ethanol alphonso urement (mass/volume)Ordered By: Francisco Colon on 07-17-2025 Ethanol [Mass/Vol] 34.9 mg/dL High <10.1 [facility] Serum or plasma urea nitroge n measurement (mass/volume)Ordered By: Francisco Colon on 07-17-2025 Urea nitrogen [Mass/Vol] 6 mg/dL 4- [facility] Sodium levelOrdered By: Francisco Colon on 07-17-2025 Sodium [Moles/Vol] 144 mmol/L 133-145 [facility] Squamous epithelial cells de tection in urine sediment by light microscopyOrdered By: Francisco Colon on 07-17-2025 Epithelial cells.squamous LM Ql (Urine sed) 0-5 SEEN /hpf 04-07 [facility] Total proteinOrdered By: Rommel Colon on 07-17-2025 Protein [Mass/Vol] 6.6 g/dL 5.9-8.4 [facility] Urinalysis, Completeon 07-17 EPI,SQUAMOUS 0-5 SEEN Normal 04-07 [facility] Comment on above: Order Comment: CLEAN CATCH Performed By: #### L 400.0001 ####[facility] [address] [place], [place], [address] BACTERIA 0 SEEN Normal None Seen [facility] Comment on above: Order Comment: CLEAN CATCH Performed By: #### L 400.0001 ####[facility] [address] [place], [address] Mucus Ql (Urine sed) 0 SEEN Normal [facility] Comment on above: Order Comment: CLEAN CATCH Performed By: #### L 400.0001 ####[facility] [address] [place], [address] RBC 0 SEEN Normal 0-5 [facility] Comment on above: Order Comment: CLEAN CATCH Performed By: #### L 400.0001 ####[facility] [address] [place], [place], [address] WBC 0 SEEN Normal 0-5 [facility] Comment on above: Order Comment: CLEAN CATCH Performed By: #### L 400.0001 ####[facility] [address] [place], [place], [address] Urine clarityOrdered By: Rommel Colon on 07-17-2025 Clarity (U) Clear Clear [facility] Urine color determinationOrd ered By: Francisco Colon on 07-17-2025 Color (U) Yellow Yellow [facility] Urine glucose detectionOrder ed By: Francisco Colon on 07-17-2025 Glucose Ql (U) Normal mg/dl Normal [facility] Urine leukocyte esterase det ection by dipstickOrdered By: Francisco Colon on 07-17-2025 Leukocyte esterase Test strip Ql (U) 25 /ul High Negative [facility] Urine pHOrdered By: Francisco stuart on 07-17-2025 pH (U) 6.5 [pH] 5.0 - 8.0 [facility] Urine sediment bacteria coun t by microscopy (number/high power field)Ordered By: Francisco Colon on 07-17-2025 Bacteria LM.HPF (Urine sed) [#/Area] 0 /[HPF] None Seen [facility] Urine specific gravity measu rementOrdered By: Francisco Colon on 07-17-2025 Specific gravity (U) [Rel density] 1.010 1.002-1.030 [facility] Urine urobilinogen measureme ntOrdered By: Francisco Colon on 07-17-2025 Urobilinogen Ql (U) Normal mg/dl Normal [facility] White blood cell (WBC) count Ordered By: Francisco Colon on 07-17-2025 WBC (Bld) [#/Vol] 7.0 10*3/uL 4.4-11.0 [facility] White blood cell countOrdere d By: Francisco Colon on 07-17-2025 White blood cell count 0 SEEN /hpf 0-5 [facility] Bedside Glucoseon 05-28-2025 FINGERSTICK GLU 259 mg/dL High 74-106 [facility] Comment on above: Result Comment: CHAUNCEY GEMENT OF PATIENT CARE PER NURSING PROTOCOL Performed By: #### L 501.080 ####[facility] [address] [facility] [address] FINGERSTICK GLU 164 mg/dL High [address] [facility] Comment on above: Result Comment: CHAUNCEY GEMENT OF PATIENT CARE PER NURSING PROTOCOL Performed By: #### L 501.080 ####[facility] [address] [facility] [address] Discharge Instructionon 3 Discharge Instruction Normal [facility] deOrdered By: Mao Becker on 05-28-2025 Glucose [Mass/Vol] 259 mg/dL High 74-106 [facility] Comment on above: MANAGEMENT OF PATIEN T CARE PER NURSING PROTOCOL Bedside Glucoseon 05-27-2025 FINGERSTICK GLU 217 mg/dL High [address] [place] [address] Comment on above: Result Comment: CHAUNCEY GEMENT OF PATIENT CARE PER NURSING PROTOCOL Performed By: #### L 501.080 ####[facility] [address] [facility] [address] FINGERSTICK GLU 179 mg/dL High [facility]106 [facility] Comment on above: Result Comment: CHAUNCEY GEMENT OF PATIENT CARE PER NURSING PROTOCOL Performed By: #### L 501.080 ####[facility] [address] [facility] [address] FINGERSTICK GLU 246 mg/dL High [address] [place] [address] Comment on above: Result Comment: CHAUNCEY GEMENT OF PATIENT CARE PER NURSING PROTOCOL Performed By: #### L 501.080 ####[facility] [address] [facility] [address] FINGERSTICK GLU 133 mg/dL High [address] [facility] Comment on above: Result Comment: CHAUNCEY GEMENT OF PATIENT CARE PER NURSING PROTOCOL Performed By: #### L 501.080 ####[facility] [address] [place], [address] Magnesiumon 05-27-2025 Magnesium [Mass/Vol] 1.7 mg/dL Normal 1.5-2.2 [facility] Comment on above: Performed By: #### L 501.5200 ####[facility] [address] [place], [address] Magnesium measurement (mass/ volume)Ordered By: Mao Becker on 05-27-2025 Magnesium (Unsp spec) [Mass/Vol] 1.7 mg/dL 1.5-2.2 [facility] Bedside Glucoseon 05-26-2025 FINGERSTICK GLU 243 mg/dL High 74-106 [facility] Comment on above: Result Comment: CHAUNCEY GEMENT OF PATIENT CARE PER NURSING PROTOCOL Performed By: #### L 501.080 ####[facility] [address] [place], [address] FINGERSTICK GLU 221 mg/dL High 74-106 [facility] Comment on above: Result Comment: CHAUNCEY GEMENT OF PATIENT CARE PER NURSING PROTOCOL Performed By: #### L 501.080 ####[facility] [address] [place], [address] FINGERSTICK GLU 293 mg/dL High 74-106 [facility] Comment on above: Result Comment: CHAUNCEY GEMENT OF PATIENT CARE PER NURSING PROTOCOL Performed By: #### L 501.080 ####[facility] [address] [place], [address] FINGERSTICK GLU 119 mg/dL High 74-106 [facility] Comment on above: Result Comment: CHAUNCEY GEMENT OF PATIENT CARE PER NURSING PROTOCOL Performed By: #### L 501.080 ####[facility] [address] [place], [address] Magnesiumon 05-26-2025 Magnesium [Mass/Vol] 1.3 mg/dL Low 1.5-2.2 [facility] Comment on above: Performed By: #### L 501.5200 ####[facility] [address] [place], [address] Alcohol, Blood (Medical)-Ser umon 05-25-2025 SERUM ETOH 312.0 mg/dL Invalid Interpretation Code <=10.0 [facility] Comment on above: Result Comment: Crit ical Result(s) Called at 0100: by: NBURNS TO LSPARR??Results read back by same.This test is for medical purposes only. The legaldefinition of intoxication varies according to local law. Performed By: #### L 100.0100, L501.9100, L700.6800, L500.4050, L505.5000 ####[facility] [address] [place], [address] Bedside Glucoseon 05-25-2025 FINGERSTICK GLU 182 mg/dL High 74-106 [facility] Comment on above: Result Comment: CHAUNCEY GEMENT OF PATIENT CARE PER NURSING PROTOCOL Performed By: #### L 501.080 ####[facility] [address] [place], [address] FINGERSTICK GLU 187 mg/dL High 74-106 [facility] Comment on above: Result Comment: CHAUNCEY GEMENT OF PATIENT CARE PER NURSING PROTOCOL Performed By: #### L 501.080 ####[facility] [address] [place], [address] FINGERSTICK GLU 220 mg/dL High 74-106 [facility] Comment on above: Result Comment: CHAUNCEY GEMENT OF PATIENT CARE PER NURSING PROTOCOL Performed By: #### L 501.080 ####[facility] [address] [place], [address] FINGERSTICK GLU 179 mg/dL High 74-106 [facility] Comment on above: Result Comment: CHAUNCEY GEMENT OF PATIENT CARE PER NURSING PROTOCOL Performed By: #### L 501.080 ####[facility] [address] [place], [address] CBC W/Diff, Automatedon 06-2 Absolute Lymph 3.57 X10 3/uL Normal 0.83-4.51 [facility] Comment on above: Performed By: #### L 100.0100, L501.9100, L700.6800, L500.4050, L505.5000 ####[facility] [address] [place], [address] Absolute Neut 4.3 X10 3/uL Normal 2.0-7.7 [facility] Comment on above: Performed By: #### L 100.0100, L501.9100, L700.6800, L500.4050, L505.5000 ####[facility] [address] [place], [address] Basophils/100 WBC (Bld) 0.5 % Normal 0-1 [facility] Comment on above: Performed By: #### L 100.0100, L501.9100, L700.6800, L500.4050, L505.5000 ####[facility] [address] [place], [address] Eosinophils/100 WBC (Bld) 0.7 % Normal 0-5 [facility] Comment on above: Performed By: #### L 100.0100, L501.9100, L700.6800, L500.4050, L505.5000 ####[facility] [address] [place], [address] Erythrocyte distribution width (RBC) [Ratio] 13.1 % Normal 11.6-14.6 [facility] Comment on above: Performed By: #### L 100.0100, L501.9100, L700.6800, L500.4050, L505.5000 ####[facility] [address] [place], [address] Hematocrit (Bld) [Volume fraction] 38.3 % Normal 37-47 [facility] Comment on above: Performed By: #### L 100.0100, L501.9100, L700.6800, L500.4050, L505.5000 ####[facility] [address] [place], [address] Hemoglobin (Bld) [Mass/Vol] 13.2 g/dL Normal 12.0-15.0 [facility] Comment on above: Performed By: #### L 100.0100, L501.9100, L700.6800, L500.4050, L505.5000 ####[facility] [address] [place], [address] IG% 0.100 Normal 0.0-0.9 [facility] Comment on above: Result Comment: IG% - Immature Granulocytes (promyelocytes, myelocytes andmetamyelocytes) > 1% indicates that a LEFT SHIFT is Present. Performed By: #### L 100.0100, L501.9100, L700.6800, L500.4050, L505.5000 ####[facility] [address] [place], [address] Lymphocytes/100 WBC (Bld) 41.1 % High 19-41 [facility] Comment on above: Performed By: #### L 100.0100, L501.9100, L700.6800, L500.4050, L505.5000 ####[facility] [address] [place], [address] MCH (RBC) [Entitic mass] 34.6 pg High 27.0-32.0 [facility] Comment on above: Performed By: #### L 100.0100, L501.9100, L700.6800, L500.4050, L505.5000 ####[facility] [address] [place], [address] MCHC (RBC) [Mass/Vol] 34.5 g/dL Normal 32-36 [facility] Comment on above: Performed By: #### L 100.0100, L501.9100, L700.6800, L500.4050, L505.5000 ####[facility] [address] [place], [address] MCV (RBC) [Entitic vol] 100.3 fL High 81-99 [facility] Comment on above: Performed By: #### L 100.0100, L501.9100, L700.6800, L500.4050, L505.5000 ####[facility] [address] [place], [address] Monocytes/100 WBC (Bld) 7.7 % Normal 0-10 [facility] Comment on above: Performed By: #### L 100.0100, L501.9100, L700.6800, L500.4050, L505.5000 ####[facility] [address] [place], [address] Neutrophils/100 WBC (Bld) 49.9 % Normal 47-70 [facility] Comment on above: Performed By: #### L 100.0100, L501.9100, L700.6800, L500.4050, L505.5000 ####[facility] [address] [place], [address] Nucleated RBC (Bld) [#/Vol] 0 10*3/uL Normal 0-5 [facility] Comment on above: Performed By: #### L 100.0100, L501.9100, L700.6800, L500.4050, L505.5000 ####[facility] [address] [place], [address] Platelet mean volume (Bld) [Entitic vol] 10.0 fL Normal 6.2-12.0 [facility] Comment on above: Performed By: #### L 100.0100, L501.9100, L700.6800, L500.4050, L505.5000 ####[facility] [address] [place], [address] Platelets (Bld) [#/Vol] 187 10*3/uL Normal 150-450 [facility] Comment on above: Performed By: #### L 100.0100, L501.9100, L700.6800, L500.4050, L505.5000 ####[facility] [address] [place], [address] RBC (Bld) [#/Vol] 3.82 10*6/uL Low 4.2-5.4 [facility] Comment on above: Performed By: #### L 100.0100, L501.9100, L700.6800, L500.4050, L505.5000 ####[facility] [address] [place], [address] RDW SD 47.9 fl High 35.1-43.9 [facility] Comment on above: Performed By: #### L 100.0100, L501.9100, L700.6800, L500.4050, L505.5000 ####[facility] [address] [place], [address] WBC (Bld) [#/Vol] 8.7 10*3/uL Normal 4.4-11.0 [facility] Comment on above: Performed By: #### L 100.0100, L501.9100, L700.6800, L500.4050, L505.5000 ####[facility] [address] [place], [address] Comprehensive Metabolic Prof ilon 05-25-2025 Albumin [Mass/Vol] 4.1 g/dL Normal 3.5-5.0 [facility] Comment on above: Performed By: #### L 100.0100, L501.9100, L700.6800, L500.4050, L505.5000 ####[facility] [address] [place], [address] Albumin/Globulin [Mass ratio] 1.2 {ratio} Normal 0.9-2.4 [facility] Comment on above: Performed By: #### L 100.0100, L501.9100, L700.6800, L500.4050, L505.5000 ####[facility] [address] [place], [address] ALK PHOS 115 U/L High 35-104 [facility] Comment on above: Performed By: #### L 100.0100, L501.9100, L700.6800, L500.4050, L505.5000 ####[facility] [address] [place], [address] ALT [Catalytic activity/Vol] 29 U/L Normal <=34 [facility] Comment on above: Performed By: #### L 100.0100, L501.9100, L700.6800, L500.4050, L505.5000 ####[facility] [address] [place], [address] AST [Catalytic activity/Vol] 45 U/L High <=31 [facility] Comment on above: Result Comment: Hemo lysis present, Results??could be affected.?? Performed By: #### L 100.0100, L501.9100, L700.6800, L500.4050, L505.5000 ####[facility] [address] [place], [address] Bilirubin [Mass/Vol] 0.37 mg/dL Normal 0.00-1.30 [facility] Comment on above: Performed By: #### L 100.0100, L501.9100, L700.6800, L500.4050, L505.5000 ####[facility] [address] [place], [address] BUN/CRE 11.4 RATIO Normal 10-20 [facility] Comment on above: Performed By: #### L 100.0100, L501.9100, L700.6800, L500.4050, L505.5000 ####[facility] [address] [place], [address] Calcium [Mass/Vol] 8.7 mg/dL Normal 7.6-11.0 [facility] Comment on above: Performed By: #### L 100.0100, L501.9100, L700.6800, L500.4050, L505.5000 ####[facility] [address] [place], [address] Chloride [Moles/Vol] 98 mmol/L Normal 98-108 [facility] Comment on above: Performed By: #### L 100.0100, L501.9100, L700.6800, L500.4050, L505.5000 ####[facility] [address] [place], [address] CO2 [Moles/Vol] 20.9 mmol/L Low 21.0-32.0 [facility] Comment on above: Performed By: #### L 100.0100, L501.9100, L700.6800, L500.4050, L505.5000 ####[facility] [address] [place], [address] Creatinine [Mass/Vol] 0.72 mg/dL Normal 0.70-1.20 [facility] Comment on above: Performed By: #### L 100.0100, L501.9100, L700.6800, L500.4050, L505.5000 ####[facility] [address] [place], [address] ECRCL 82.51 ml/min Normal 50-250 [facility] Comment on above: Performed By: #### L 100.0100, L501.9100, L700.6800, L500.4050, L505.5000 ####[facility] [address] [place], [address] GAP 21 High 5-15 [facility] Comment on above: Performed By: #### L 100.0100, L501.9100, L700.6800, L500.4050, L505.5000 ####[facility] [address] [place], [address] GFR/1.73 sq M.predicted among non-blacks MDRD (S/P/Bld) [Vol rate/Area] 104 mL/min/{1.73_m2} Normal >60 [facility] Comment on above: Result Comment: mL/m in/1.73m2 CKD-EPI Creatinine Equation (2020) Performed By: #### L 100.0100, L501.9100, L700.6800, L500.4050, L505.5000 ####[facility] [address] [place], [address] Globulin (S) [Mass/Vol] 3.4 g/dL Normal 2.2-4.2 [facility] Comment on above: Performed By: #### L 100.0100, L501.9100, L700.6800, L500.4050, L505.5000 ####[facility] [address] [place], [address] Glucose [Mass/Vol] 84 mg/dL Normal 70-99 [facility] Comment on above: Performed By: #### L 100.0100, L501.9100, L700.6800, L500.4050, L505.5000 ####[facility] [address] [place], [address] Potassium [Moles/Vol] 4.1 mmol/L Normal 3.3-5.1 [facility] Comment on above: Result Comment: Hemo lysis present, Results??could be affected.?? Performed By: #### L 100.0100, L501.9100, L700.6800, L500.4050, L505.5000 ####[facility] [address] [place], [address] Sodium [Moles/Vol] 140 mmol/L Normal 133-145 [facility] Comment on above: Performed By: #### L 100.0100, L501.9100, L700.6800, L500.4050, L505.5000 ####[facility] [address] [place], [address] T PROT 7.5 g/dL Normal 5.9-8.4 [facility] Comment on above: Performed By: #### L 100.0100, L501.9100, L700.6800, L500.4050, L505.5000 ####[facility] [address] [place], [address] Urea nitrogen [Mass/Vol] 8 mg/dL Normal 4-19 [facility] Comment on above: Performed By: #### L 100.0100, L501.9100, L700.6800, L500.4050, L505.5000 ####[facility] [address] [place], [address] Emergency Department Summary on 05-25-2025 Emergency Department Summary Normal [facility] H AND P Exam - Hospitaliston 05-25-2025 H&P Exam - Hospitalist Normal [facility] Magnesiumon 05-25-2025 Magnesium [Mass/Vol] 1.6 mg/dL Normal 1.5-2.2 [facility] Comment on above: Performed By: #### L 501.5200 ####[facility] [address] [place], [address] Magnesium [Mass/Vol] 1.1 mg/dL Low 1.5-2.2 [facility] Comment on above: Order Comment: Comme nts: May add to ED labsComments: may add to ED labs Performed By: #### L 501.2300, L501.5200 ####[facility] [address] [place], [address] Magnesium measurement (mass/ volume)Ordered By: Myra Null on 05-25-2025 Magnesium (Unsp spec) [Mass/Vol] 1.1 mg/dL Low 1.5-2.2 [facility] Phosphoruson 05-25-2025 Phosphate [Mass/Vol] 4.5 mg/dL Normal 2.7-4.5 [facility] Comment on above: Order Comment: Comme nts: May add to ED labsComments: may add to ED labs Performed By: #### L 501.2300, L501.5200 ####[facility] [address] [place], [address] ,Serum,hCG Quali.on 05-25-2025 HCG, SERUM QUAL Negative Normal [facility] Comment on above: Performed By: #### L 100.0100, L501.9100, L700.6800, L500.4050, L505.5000 ####[facility] [address] [place], [address] Urinalysis, Completeon 05-25 EPI,SQUAMOUS 5-10 SEEN Normal 5-10 [facility] Comment on above: Order Comment: CLEAN CATCH Performed By: #### L 400.0001 ####[facility] [address] [place], [address] RBC 0-5 SEEN Normal 0-5 [facility] Comment on above: Order Comment: CLEAN CATCH Performed By: #### L 400.0001 ####[facility] [address] [place], [address] WBC 0-5 SEEN Normal 0-5 [facility] Comment on above: Order Comment: CLEAN CATCH Performed By: #### L 400.0001 ####[facility] [address] [facility] [address] BACTERIA 0 SEEN Normal None Seen [facility] Comment on above: Order Comment: CLEAN CATCH Performed By: #### L 400.0001 ####[facility] [address] [facility] [address] Mucus Ql (Urine sed) 0 SEEN Normal [facility] Comment on above: Order Comment: CLEAN CATCH Performed By: #### L 400.0001 ####[facility] [address] [place] [address] Urine Drug Screen (VISTA)on 05-25-2025 AMPHETAMINES Negative Normal <1000 ng/mL [facility] Comment on above: Performed By: #### L 100.0100, L501.9100, L700.6800, L500.4050, L505.5000 ####[facility] [address] [place] [address] BARBITIURATES Positive Normal < 200 ng/mL [facility] Comment on above: Result Comment: If c onfirmation testing is needed, a separate order will berequired to send out testing to the reference laboratory. Performed By: #### L 100.0100, L501.9100, L700.6800, L500.4050, L505.5000 ####[facility] [address] [facility] [address] BENZODIAZIPINE Positive Normal < 200 ng/mL [facility] Comment on above: Result Comment: If c onfirmation testing is needed, a separate order will berequired to send out testing to the reference laboratory. Performed By: #### L 100.0100, L501.9100, L700.6800, L500.4050, L505.5000 ####[facility] [address] [place] [address] BUP Ur Drug Scr Negative Normal < 200 ng/mL [facility] Comment on above: Performed By: #### L 100.0100, L501.9100, L700.6800, L500.4050, L505.5000 ####[facility] [address] [place] [address] COCAINE Negative Normal < 300 ng/mL [facility] Comment on above: Performed By: #### L 100.0100, L501.9100, L700.6800, L500.4050, L505.5000 ####[facility] [address] [place] [address] Fentanyl Negative Normal [facility] Comment on above: Performed By: #### L 100.0100, L501.9100, L700.6800, L500.4050, L505.5000 ####[facility] [address] [place] [address] METHADONE Negative Normal < 300 ng/mL [facility] Comment on above: Performed By: #### L 100.0100, L501.9100, L700.6800, L500.4050, L505.5000 ####[facility] [address] [place] [address] OPIATES Negative Normal < 300 ng/mL [facility] Comment on above: Performed By: #### L 100.0100, L501.9100, L700.6800, L500.4050, L505.5000 ####[facility] [address] [place] [address] OXYCODONE Negative Normal < 100 ng/mL [facility] Comment on above: Performed By: #### L 100.0100, L501.9100, L700.6800, L500.4050, L505.5000 ####[facility] [address] [place] [id number] PCP Negative Normal < 25 ng/mL [facility] Comment on above: Performed By: #### L 100.0100, L501.9100, L700.6800, L500.4050, L505.5000 ####[facility] [address] [place], [address] THC Negative Normal < 50 ng/mL [facility] Comment on above: Performed By: #### L 100.0100, L501.9100, L700.6800, L500.4050, L505.5000 ####[facility] [address] [place], [address] Absolute lymphocyte countOrd ered By: Andrew Maurice on 05-24-2025 Lymphocytes Auto (Unsp spec) [#/Vol] 3.57 10*3/uL 0.83-4.51 [facility] Absolute neutrophil countOrd ered By: Andrew Maurice on 05-24-2025 Neutrophils (Bld) [#/Vol] 4.3 10*3/uL 2.0-7.7 [facility] Amphetamine detection with 1 000 ng/mL as cutoffOrdered By: Andrew Maurice on 05-24-2025 Amphetamines Screen method >1000 ng/mL Ql (U) Negative <1000 ng/mL [facility] Amphetamines Screen method >1000 ng/mL Ql (U) Positive < 200 ng/mL [facility] Comment on above: If confirmation test ing is needed, a separate order will be required to send out testing to the reference laboratory. Anion gap in Serum or Plasma Ordered By: Andrew Maurice on 05-24-2025 Anion gap [Moles/Vol] 21 mmol/L High 5-15 [facility] Automated lymphocyte count a s percentage of total leukocytesOrdered By: Andrew Maurice on 05-24-2025 Lymphocytes/100 WBC Auto (Unsp spec) 41.1 % High 19-41 [facility] BUN/creatinine ratioOrdered By: Andrew Maurice on 05-24-2025 Urea nitrogen/Creatinine [Mass ratio] 11.4 mg/mg 10-20 [facility] Basophil percentageOrdered B y: Andrew Maurice on 05-24-2025 Basophils/100 WBC (Bld) 0.5 % 0-1 [facility] Bilirubin Test strip Ql (U)O rdered By: Andrew Maurice on 05-24-2025 Bilirubin Ql (U) Negative Negative [facility] Bilirubin, totalOrdered By: Andrew Maurice on 05-24-2025 Bilirubin [Mass/Vol] 0.37 mg/dL 0.00-1.30 [facility] Carbon dioxide, total [Moles /volume] in Central venous bloodOrdered By: Andrew Maurice on 05-24-2025 CO2 [Moles/Vol] 20.9 mmol/L Low 21.0-32.0 [facility] Chloride assayOrdered By: Yusef Maurice on 05-24-2025 Chloride [Moles/Vol] 98 mmol/L 98-108 [facility] Eosinophil percentageOrdered By: Andrew Maurice on 05-24-2025 Eosinophils/100 WBC (Bld) 0.7 % 0-5 [facility] Erythrocyte distribution wid th ratioOrdered By: Andrew Maurice on 05-24-2025 Erythrocyte distribution width (RBC) [Ratio] 13.1 % 11.6-14.6 [facility] Erythrocyte distribution wid th standard deviationOrdered By: Andrew Small on 05-24-2025 Erythrocyte distribution width (RBC) [Ratio] 47.9 fl High 35.1-43.9 [facility] Glomerular filtration rate ( GFR) estimation/1.73 sq m using serum, plasma, or whole bOrdered By: Andrew Maurice on 05-24-2025 GFR/1.73 sq M.predicted among non-blacks MDRD (S/P/Bld) [Vol rate/Area] 104 mL/min/{1.73_m2} >60 [facility] Comment on above: mL/min/1.73m2 CKD-EP I Creatinine Equation (2020) Hematocrit Auto (Bld) [Volum e fraction]Ordered By: Andrew Maurice on 05-24-2025 Hematocrit (Bld) [Volume fraction] 38.3 % 37-47 [facility] Hemoglobin measurementOrdere d By: Andrew Maurice on 05-24-2025 Hemoglobin (Bld) [Mass/Vol] 13.2 g/dL 12.0-15.0 [facility] Immature granulocytes/100 WB C Auto (Bld)Ordered By: Andrew Maurice on 05-24-2025 Immature granulocytes/100 WBC (Bld) 0.100 % 0.0-0.9 [facility] Comment on above: IG% - Immature Granu locytes (promyelocytes, myelocytes and metamyelocytes) > 1% indicates that a LEFT SHIFT is Present. Ketones Test strip Ql (U)Ord ered By: Andrew Maurice on 05-24-2025 Ketones Ql (U) 5 mg/dl High Negative [facility] Laboratory - Chemistry and C hemistry - challengeOrdered By: Andrewmark Maurice on 05-24-2025 AST [Catalytic activity/Vol] 45 U/L High <32 [facility] Comment on above: Hemolysis present, R esults could be affected. MCV (mean corpuscular volume ) determinationOrdered By: Andrew Maurice on 05-24-2025 MCV (RBC) [Entitic vol] 100.3 fL High 81-99 [facility] Mean corpuscular hemoglobin (MCH) determinationOrdered By: Andrew Maurice on 05-24-2025 MCH (RBC) [Entitic mass] 34.6 pg High 27.0-32.0 [facility] Mean corpuscular hemoglobin concentration (MCHC) determinationOrdered By: Andrew Maurice on 05-24-2025 MCHC (RBC) [Mass/Vol] 34.5 g/dL 32-36 [facility] Mean platelet volume determi nationOrdered By: Andrew Maurice on 05-24-2025 Platelet mean volume (Bld) [Entitic vol] 10.0 fL 6.2-12.0 [facility] Microscopic analysis of urin e for red blood cells (RBC)Ordered By: Andrew Maurice on 05-24-2025 Microscopic analysis of urine for red blood cells (RBC) 0-5 SEEN /hpf 0-5 [facility] Monocyte percentageOrdered B y: Andrew Maurice on 05-24-2025 Monocytes/100 WBC (Bld) 7.7 % 0-10 [facility] Mucus LM Ql (Urine sed)Order ed By: Andrew Maurice on 05-24-2025 Mucus Ql (Urine sed) 0 SEEN /hpf [facility] Neutrophil percentageOrdered By: Andrew Maurice on 05-24-2025 Neutrophils/100 WBC (Bld) 49.9 % 47-70 [facility] Nitrite Test strip Ql (U)Ord ered By: Andrew Maurice on 05-24-2025 Nitrite Ql (U) Negative Negative [facility] No Panel InformationOrdered By: Andrew Maurice on 05-24-2025 Urine Buprenorphine Qualitative Negative < 200 ng/mL [facility] Urine Oxycodone Screen Negative < 100 ng/mL [facility] 45 U/L High <32 [facility] Negative < 200 ng/mL [facility] Nucleated red blood cell per centageOrdered By: Andrew Maurice on 05-24-2025 Nucleated RBC/100 WBC (Bld) [Ratio] 0 % 0-5 [facility] Platelet countOrdered By: Yusef Maurice on 05-24-2025 Platelets (Bld) [#/Vol] 187 10*3/uL 150-450 [facility] Potassium measurement (mass/ volume)Ordered By: Andrew Maurice on 05-24-2025 Potassium (Unsp spec) [Mass/Vol] 4.1 mmol/L 3.3-5.1 [facility] Comment on above: Hemolysis present, R esults could be affected. Protein Test strip Ql (U)Ord ered By: Andrew Maurice on 05-24-2025 Protein Ql (U) 30 mg/dl High Negative [facility] Quantitative urine opiates m easurementOrdered By: Andrew Maurice on 05-24-2025 Opiates Ql (U) Negative < 300 ng/mL [facility] RBC Auto (Bld) [#/Vol]Ordere d By: Andrew Maurice on 05-24-2025 RBC (Bld) [#/Vol] 3.82 10*6/uL Low 4.2-5.4 [facility] Screening urine fentanyl alexis surementOrdered By: Andrew Maurice on 05-24-2025 fentaNYL Screen Ql (U) Negative [facility] Serum beta-hCG test, qualita tiveOrdered By: Andrew Maurice on 05-24-2025 Beta HCG ( test) Ql Negative [facility] Serum creatinine measurement (mass/volume)Ordered By: Andrew Maurice on 05-24-2025 Creatinine [Mass/Vol] 0.72 mg/dL 0.70-1.20 [facility] Serum globulin measurementOr dered By: Andrew Maurice on 05-24-2025 Globulin (S) [Mass/Vol] 3.4 g/dL 2.2-4.2 [facility] Serum glucose measurement (m ass/volume)Ordered By: Andrew Maurice on 05-24-2025 Glucose [Mass/Vol] 84 mg/dL 70-99 [facility] Serum or plasma alanine wilkerson otransferase (ALT) measurementOrdered By: Andrew Maurice on 05-24-2025 ALT [Catalytic activity/Vol] 29 U/L <35 [facility] Serum or plasma albumin alphonso urement (mass/volume)Ordered By: Andrew Small on 05-24-2025 Albumin [Mass/Vol] 4.1 g/dL 3.5-5.0 [facility] Serum or plasma albumin/glob ulin mass ratioOrdered By: Andrew Maurice on 05-24-2025 Albumin/Globulin [Mass ratio] 1.2 {ratio} 0.9-2.4 [facility] Serum or plasma alkaline trinity sphatase measurementOrdered By: Andrew Maurice on 05-24-2025 ALP [Catalytic activity/Vol] 115 U/L High 35-104 [facility] Serum or plasma calcium alphonso urement (mass/volume)Ordered By: Andrew Small on 05-24-2025 Calcium [Mass/Vol] 8.7 mg/dL 7.6-11.0 [facility] Serum or plasma ethanol alphonso urement (mass/volume)Ordered By: Andrew Small on 05-24-2025 Ethanol [Mass/Vol] 312.0 mg/dL Critically high <10.1 [facility] Comment on above: Critical Result(s) C alled at 0100: by: OTTO TO LSPARR Results read back by same.This test is for medical purposes only. The legal definition of intoxication varies according to local law. Serum or plasma urea nitroge n measurement (mass/volume)Ordered By: Andrew Maurice on 05-24-2025 Urea nitrogen [Mass/Vol] 8 mg/dL 4-19 [facility] Sodium levelOrdered By: Alfie Maurice on 05-24-2025 Sodium [Moles/Vol] 140 mmol/L 133-145 [facility] Squamous epithelial cells de tection in urine sediment by light microscopyOrdered By: Andrew Maurice on 05-24-2025 Epithelial cells.squamous LM Ql (Urine sed) 5-10 SEEN /hpf 5-10 [facility] Total proteinOrdered By: Last Maurice on 05-24-2025 Protein [Mass/Vol] 7.5 g/dL 5.9-8.4 [facility] Urine benzodiazepine levelOr dered By: Andrew Maurice on 05-24-2025 Benzodiazepines Ql (U) Positive < 200 ng/mL [facility] Comment on above: If confirmation test ing is needed, a separate order will be required to send out testing to the reference laboratory. Urine clarityOrdered By: Last Maurice on 05-24-2025 Clarity (U) Clear Clear [facility] Urine cocaine levelOrdered B y: Andrew Maurice on 05-24-2025 Cocaine Ql (U) Negative < 300 ng/mL [facility] Urine color determinationOrd ered By: Andrew Maurice on 05-24-2025 Color (U) Yellow Yellow [facility] Urine tcylc-6-ersxjaiygharti abinol (THC) measurementOrdered By: Andrew Small on 05-24-2025 Cannabinoids Screen Ql (U) Negative < 50 ng/mL [facility] Urine glucose detectionOrder ed By: Andrew Maurice on 05-24-2025 Glucose Ql (U) Normal mg/dl Normal [facility] Urine leukocyte esterase det ection by dipstickOrdered By: Andrew Maurice on 05-24-2025 Leukocyte esterase Test strip Ql (U) 25 /ul High Negative [facility] Urine pHOrdered By: Andrew Barrera on 05-24-2025 pH (U) 6.0 [pH] 5.0 - 8.0 [facility] Urine phencyclidine (PCP) de tectionOrdered By: Andrew Maurice on 05-24-2025 Phencyclidine Ql (U) Negative < 25 ng/mL [facility] Urine sediment bacteria coun t by microscopy (number/high power field)Ordered By: Andrew Maurice on 05-24-2025 Bacteria LM.HPF (Urine sed) [#/Area] 0 /[HPF] None Seen [facility] Urine specific gravity measu rementOrdered By: Andrew Maurice on 05-24-2025 Specific gravity (U) [Rel density] 1.015 1.002-1.030 [facility] Urine urobilinogen measureme ntOrdered By: Andrew Maurice on 05-24-2025 Urobilinogen Ql (U) Normal mg/dl Normal [facility] White blood cell (WBC) count Ordered By: Andrew Maurice on 05-24-2025 WBC (Bld) [#/Vol] 8.7 10*3/uL 4.4-11.0 [facility] White blood cell countOrdere d By: Andrew Maurice on 05-24-2025 White blood cell count 0-5 SEEN /hpf 0-5 [facility] Bedside Glucoseon 05-06-2025 FINGERSTICK GLU 358 mg/dL High 74-106 [facility] Comment on above: Result Comment: CHAUNCEY GEMENT OF PATIENT CARE PER NURSING PROTOCOL Performed By: #### L 501.080 ####[facility] [address] [facility] [address] FINGERSTICK GLU 219 mg/dL High 74-106 [facility] Comment on above: Result Comment: CHAUNCEY GEMENT OF PATIENT CARE PER NURSING PROTOCOL Performed By: #### L 501.080 ####[facility] [address] [facility] [address] Discharge Instructionon 06- Discharge Instruction Normal [facility] at [facility] deOrdered By: Mao Becker on 05-06-2025 Glucose [Mass/Vol] 358 mg/dL High 74-106 [facility] Comment on above: MANAGEMENT OF PATIEN T CARE PER NURSING PROTOCOL Bedside Glucoseon 05-05-2025 FINGERSTICK GLU 331 mg/dL High 74-106 [facility] Comment on above: Result Comment: CHAUNCEY GEMENT OF PATIENT CARE PER NURSING PROTOCOL Performed By: #### L 501.080 ####[facility] [address] [facility] [address] FINGERSTICK GLU 257 mg/dL High 74-106 [facility] Comment on above: Result Comment: CHAUNCEY GEMENT OF PATIENT CARE PER NURSING PROTOCOL Performed By: #### L 501.080 ####[facility] [address] [place], [address] FINGERSTICK GLU 346 mg/dL High 74-106 [facility] Comment on above: Result Comment: CHAUNCEY GEMENT OF PATIENT CARE PER NURSING PROTOCOL Performed By: #### L 501.080 ####[facility] [address] [place], [address] FINGERSTICK GLU 221 mg/dL High 74-106 [facility] Comment on above: Result Comment: CHAUNCEY GEMENT OF PATIENT CARE PER NURSING PROTOCOL Performed By: #### L 501.080 ####[facility] [address] [place], [address] Absolute lymphocyte countOrd ered By: Canelo Myers on 05-04-2025 Lymphocytes Auto (Unsp spec) [#/Vol] 1.36 10*3/uL 0.83-4.51 [facility] Absolute neutrophil countOrd ered By: Canelo Myers on 05-04-2025 Neutrophils (Bld) [#/Vol] 3.4 10*3/uL 2.0-7.7 [facility] Anion gap in Serum or Plasma Ordered By: Canelo Myers on 05-04-2025 Anion gap [Moles/Vol] 11 mmol/L 5-15 [facility] Automated lymphocyte count a s percentage of total leukocytesOrdered By: Canelo Myers on 05-04-2025 Lymphocytes/100 WBC Auto (Unsp spec) 23.0 % 19-41 [facility] BUN/creatinine ratioOrdered By: Canelo Myers on 05-04-2025 Urea nitrogen/Creatinine [Mass ratio] 9.6 mg/mg Low 10-20 [facility] Basophil percentageOrdered B y: Canelo Myers on 05-04-2025 Basophils/100 WBC (Bld) 0.5 % 0-1 [facility] Bedside Glucoseon 05-04-2025 FINGERSTICK GLU 299 mg/dL High 74-106 [facility] Comment on above: Result Comment: CHAUNCEY GEMENT OF PATIENT CARE PER NURSING PROTOCOL Performed By: #### L 501.080 ####[facility] [address] [place], [address] FINGERSTICK GLU 299 mg/dL High 74-106 [facility] Comment on above: Result Comment: CHAUNCEY GEMENT OF PATIENT CARE PER NURSING PROTOCOL Performed By: #### L 501.080 ####[facility] [address] [place], [address] FINGERSTICK GLU 245 mg/dL High 74-106 [facility] Comment on above: Result Comment: CHAUNCEY GEMENT OF PATIENT CARE PER NURSING PROTOCOL Performed By: #### L 501.080 ####[facility] [address] [place], [address] FINGERSTICK GLU 170 mg/dL High 74-106 [facility] Comment on above: Result Comment: CHAUNCEY GEMENT OF PATIENT CARE PER NURSING PROTOCOL Performed By: #### L 501.080 ####[facility] [address] [place], [address] Bilirubin, totalOrdered By: Canelo Myers on 05-04-2025 Bilirubin [Mass/Vol] 0.35 mg/dL 0.00-1.30 [facility] CBC W/Diff, Automatedon Absolute Lymph 1.36 X10 3/uL Normal 0.83-4.51 [facility] Comment on above: Performed By: #### L 100.0100, L500.4050 ####[facility] [address] [place], [address] Absolute Neut 3.4 X10 3/uL Normal 2.0-7.7 [facility] Comment on above: Performed By: #### L 100.0100, L500.4050 ####[facility] [address] [place], [address] Basophils/100 WBC (Bld) 0.5 % Normal 0-1 [facility] Comment on above: Performed By: #### L 100.0100, L500.4050 ####[facility] [address] [place], [address] Eosinophils/100 WBC (Bld) 2.7 % Normal 0-5 [facility] Comment on above: Performed By: #### L 100.0100, L500.4050 ####[facility] [address] [place], [address] Erythrocyte distribution width (RBC) [Ratio] 12.8 % Normal 11.6-14.6 [facility] Comment on above: Performed By: #### L 100.0100, L500.4050 ####[facility] [address] [place], [address] Hematocrit (Bld) [Volume fraction] 30.6 % Low 37-47 [facility] Comment on above: Performed By: #### L 100.0100, L500.4050 ####[facility] [address] [place], [address] Hemoglobin (Bld) [Mass/Vol] 10.3 g/dL Low 12.0-15.0 [facility] Comment on above: Performed By: #### L 100.0100, L500.4050 ####[facility] [address] [place], [address] IG% 0.300 Normal 0.0-0.9 [facility] Comment on above: Result Comment: IG% - Immature Granulocytes (promyelocytes, myelocytes andmetamyelocytes) > 1% indicates that a LEFT SHIFT is Present. Performed By: #### L 100.0100, L500.4050 ####[facility] [address] [place], [address] Lymphocytes/100 WBC (Bld) 23.0 % Normal 19-41 [facility] Comment on above: Performed By: #### L 100.0100, L500.4050 ####[facility] [address] [place], [address] MCH (RBC) [Entitic mass] 35.8 pg High 27.0-32.0 [facility] Comment on above: Performed By: #### L 100.0100, L500.4050 ####[facility] [address] [place], [address] MCHC (RBC) [Mass/Vol] 33.7 g/dL Normal 32-36 [facility] Comment on above: Performed By: #### L 100.0100, L500.4050 ####[facility] [address] [place], [address] MCV (RBC) [Entitic vol] 106.3 fL High 81-99 [facility] Comment on above: Performed By: #### L 100.0100, L500.4050 ####[facility] [address] [place], [address] Monocytes/100 WBC (Bld) 15.4 % High 0-10 [facility] Comment on above: Performed By: #### L 100.0100, L500.4050 ####[facility] [address] [place], [address] Neutrophils/100 WBC (Bld) 58.1 % Normal 47-70 [facility] Comment on above: Performed By: #### L 100.0100, L500.4050 ####[facility] [address] [place], [address] Nucleated RBC (Bld) [#/Vol] 0 10*3/uL Normal 0-5 [facility] Comment on above: Performed By: #### L 100.0100, L500.4050 ####[facility] [address] [place], [address] Platelet mean volume (Bld) [Entitic vol] 10.3 fL Normal 6.2-12.0 [facility] Comment on above: Performed By: #### L 100.0100, L500.4050 ####[facility] [address] [place], [address] Platelets (Bld) [#/Vol] 376 10*3/uL Normal 150-450 [facility] Comment on above: Performed By: #### L 100.0100, L500.4050 ####[facility] [address] [place], [address] RBC (Bld) [#/Vol] 2.88 10*6/uL Low 4.2-5.4 [facility] Comment on above: Performed By: #### L 100.0100, L500.4050 ####[facility] [address] [place], [address] RDW SD 49.9 fl High 35.1-43.9 [facility] Comment on above: Performed By: #### L 100.0100, L500.4050 ####[facility] [address] [place], [address] WBC (Bld) [#/Vol] 5.9 10*3/uL Normal 4.4-11.0 [facility] Comment on above: Performed By: #### L 100.0100, L500.4050 ####[facility] [address] [place], [address] Carbon dioxide, total [Moles /volume] in Central venous bloodOrdered By: Canelo Myers on 05-04-2025 CO2 [Moles/Vol] 27.3 mmol/L 21.0-32.0 [facility] Chloride assayOrdered By: Henrry Myers on 05-04-2025 Chloride [Moles/Vol] 96 mmol/L Low 98-108 [facility] Comprehensive Metabolic Prof ilon 05-04-2025 Albumin [Mass/Vol] 3.4 g/dL Low 3.5-5.0 [facility] Comment on above: Performed By: #### L 100.0100, L500.4050 ####[facility] [address] [place], [address] Albumin/Globulin [Mass ratio] 1.1 {ratio} Normal 0.9-2.4 [facility] Comment on above: Performed By: #### L 100.0100, L500.4050 ####[facility] [address] [place], [address] ALK PHOS 441 U/L High 35-104 [facility] Comment on above: Performed By: #### L 100.0100, L500.4050 ####[facility] [address] [place], [address] ALT [Catalytic activity/Vol] 45 U/L High <=34 [facility] Comment on above: Performed By: #### L 100.0100, L500.4050 ####[facility] [address] [place], [address] AST [Catalytic activity/Vol] 51 U/L High <=31 [facility] Comment on above: Performed By: #### L 100.0100, L500.4050 ####[facility] [address] [place], [address] Bilirubin [Mass/Vol] 0.35 mg/dL Normal 0.00-1.30 [facility] Comment on above: Performed By: #### L 100.0100, L500.4050 ####[facility] [address] [place], [address] BUN/CRE 9.6 RATIO Low 10-20 [facility] Comment on above: Performed By: #### L 100.0100, L500.4050 ####[facility] [address] [place], [address] Calcium [Mass/Vol] 9.3 mg/dL Normal 7.6-11.0 [facility] Comment on above: Performed By: #### L 100.0100, L500.4050 ####[facility] [address] [place], [address] Chloride [Moles/Vol] 96 mmol/L Low 98-108 [facility] Comment on above: Performed By: #### L 100.0100, L500.4050 ####[facility] [address] [place], [address] CO2 [Moles/Vol] 27.3 mmol/L Normal 21.0-32.0 [facility] Comment on above: Performed By: #### L 100.0100, L500.4050 ####[facility] [address] [place], [address] Creatinine [Mass/Vol] 0.63 mg/dL Low 0.70-1.20 [facility] Comment on above: Performed By: #### L 100.0100, L500.4050 ####[facility] [address] [place], [address] ECRCL 94.30 ml/min Normal 50-250 [facility] Comment on above: Performed By: #### L 100.0100, L500.4050 ####[facility] [address] [place], [address] GAP 11 Normal 5-15 [facility] Comment on above: Performed By: #### L 100.0100, L500.4050 ####[facility] [address] [place], [address] GFR/1.73 sq M.predicted among non-blacks MDRD (S/P/Bld) [Vol rate/Area] 109 mL/min/{1.73_m2} Normal >60 [facility] Comment on above: Result Comment: mL/m in/1.73m2 CKD-EPI Creatinine Equation (2020) Performed By: #### L 100.0100, L500.4050 ####[facility] [address] [place], [address] Globulin (S) [Mass/Vol] 2.9 g/dL Normal 2.2-4.2 [facility] Comment on above: Performed By: #### L 100.0100, L500.4050 ####[facility] [address] [place], [address] Glucose [Mass/Vol] 171 mg/dL High 70-99 [facility] Comment on above: Performed By: #### L 100.0100, L500.4050 ####[facility] [address] [place], [address] Potassium [Moles/Vol] 4.7 mmol/L Normal 3.3-5.1 [facility] Comment on above: Performed By: #### L 100.0100, L500.4050 ####[facility] [address] [place], [address] Sodium [Moles/Vol] 134 mmol/L Normal 133-145 [facility] Comment on above: Performed By: #### L 100.0100, L500.4050 ####[facility] [address] [place], [address] T PROT 6.3 g/dL Normal 5.9-8.4 [facility] Comment on above: Performed By: #### L 100.0100, L500.4050 ####[facility] [address] [place], [address] Urea nitrogen [Mass/Vol] 6 mg/dL Normal 4-19 [facility] Comment on above: Performed By: #### L 100.0100, L500.4050 ####[facility] [address] [place], [address] Eosinophil percentageOrdered By: Canelo Myers on 05-04-2025 Eosinophils/100 WBC (Bld) 2.7 % 0-5 [facility] Erythrocyte distribution wid th ratioOrdered By: Canelo Myers on 05-04-2025 Erythrocyte distribution width (RBC) [Ratio] 12.8 % 11.6-14.6 [facility] Erythrocyte distribution wid th standard deviationOrdered By: Canelo Myers on 05-04-2025 Erythrocyte distribution width (RBC) [Ratio] 49.9 fl High 35.1-43.9 [facility] Glomerular filtration rate ( GFR) estimation/1.73 sq m using serum, plasma, or whole bOrdered By: Canelo Myers on 05-04-2025 GFR/1.73 sq M.predicted among non-blacks MDRD (S/P/Bld) [Vol rate/Area] 109 mL/min/{1.73_m2} >60 [facility] Comment on above: mL/min/1.73m2 CKD-EP I Creatinine Equation (2020) Hematocrit Auto (Bld) [Volum e fraction]Ordered By: Canelo Myers on 05-04-2025 Hematocrit (Bld) [Volume fraction] 30.6 % Low 37-47 [facility] Hemoglobin measurementOrdere d By: Canelo Myers on 05-04-2025 Hemoglobin (Bld) [Mass/Vol] 10.3 g/dL Low 12.0-15.0 [facility] Immature granulocytes/100 WB C Auto (Bld)Ordered By: Canelo Myers on 05-04-2025 Immature granulocytes/100 WBC (Bld) 0.300 % 0.0-0.9 [facility] Comment on above: IG% - Immature Granu locytes (promyelocytes, myelocytes and metamyelocytes) > 1% indicates that a LEFT SHIFT is Present. Laboratory - Chemistry and C hemistry - challengeOrdered By: Canelo Myers on 05-04-2025 AST [Catalytic activity/Vol] 51 U/L High <32 [facility] MCV (mean corpuscular volume ) determinationOrdered By: Canelo Myers on 05-04-2025 MCV (RBC) [Entitic vol] 106.3 fL High 81-99 [facility] Mean corpuscular hemoglobin (MCH) determinationOrdered By: Canelo Myers on 05-04-2025 MCH (RBC) [Entitic mass] 35.8 pg High 27.0-32.0 [facility] Mean corpuscular hemoglobin concentration (MCHC) determinationOrdered By: Canelo Myers on 05-04-2025 MCHC (RBC) [Mass/Vol] 33.7 g/dL 32-36 [facility] Mean platelet volume determi nationOrdered By: Canelo Myers on 05-04-2025 Platelet mean volume (Bld) [Entitic vol] 10.3 fL 6.2-12.0 [facility] Monocyte percentageOrdered B y: Canelo Myers on 05-04-2025 Monocytes/100 WBC (Bld) 15.4 % High 0-10 [facility] Neutrophil percentageOrdered By: Canelo Myers on 05-04-2025 Neutrophils/100 WBC (Bld) 58.1 % 47-70 [facility] No Panel InformationOrdered By: Canelo Myers on 05-04-2025 51 U/L High <32 [facility] Nucleated red blood cell per centageOrdered By: Canelo Myers on 05-04-2025 Nucleated RBC/100 WBC (Bld) [Ratio] 0 % 0-5 [facility] Platelet countOrdered By: Henrry Myers on 05-04-2025 Platelets (Bld) [#/Vol] 376 10*3/uL 150-450 [facility] Potassium measurement (mass/ volume)Ordered By: Canelo Myers on 05-04-2025 Potassium (Unsp spec) [Mass/Vol] 4.7 mmol/L 3.3-5.1 [facility] RBC Auto (Bld) [#/Vol]Ordere d By: Canelo Myers on 05-04-2025 RBC (Bld) [#/Vol] 2.88 10*6/uL Low 4.2-5.4 [facility] Serum creatinine measurement (mass/volume)Ordered By: Canelo Myers on 05-04-2025 Creatinine [Mass/Vol] 0.63 mg/dL Low 0.70-1.20 [facility] Serum globulin measurementOr dered By: Canelo Myers on 05-04-2025 Globulin (S) [Mass/Vol] 2.9 g/dL 2.2-4.2 [facility] Serum glucose measurement (m ass/volume)Ordered By: Canelo Myers on 05-04-2025 Glucose [Mass/Vol] 171 mg/dL High 70-99 [facility] Serum or plasma alanine wilkerson otransferase (ALT) measurementOrdered By: Canelo Myers on 05-04-2025 ALT [Catalytic activity/Vol] 45 U/L High <35 [facility] Serum or plasma albumin alphonso urement (mass/volume)Ordered By: Canelo Myers on 05-04-2025 Albumin [Mass/Vol] 3.4 g/dL Low 3.5-5.0 [facility] Serum or plasma albumin/glob ulin mass ratioOrdered By: Canelo Myers on 05-04-2025 Albumin/Globulin [Mass ratio] 1.1 {ratio} 0.9-2.4 [facility] Serum or plasma alkaline trinity sphatase measurementOrdered By: Canelo Myers on 05-04-2025 ALP [Catalytic activity/Vol] 441 U/L High 35-104 [facility] Serum or plasma calcium alphonso urement (mass/volume)Ordered By: Canelo Myers on 05-04-2025 Calcium [Mass/Vol] 9.3 mg/dL 7.6-11.0 [facility] Serum or plasma urea nitroge n measurement (mass/volume)Ordered By: Canelo Myers on 05-04-2025 Urea nitrogen [Mass/Vol] 6 mg/dL 4-19 [facility] Sodium levelOrdered By: Ganesh Myers on 05-04-2025 Sodium [Moles/Vol] 134 mmol/L 133-145 [facility] Total proteinOrdered By: Guido Myers on 05-04-2025 Protein [Mass/Vol] 6.3 g/dL 5.9-8.4 [facility] White blood cell (WBC) count Ordered By: Canelo Myers on 05-04-2025 WBC (Bld) [#/Vol] 5.9 10*3/uL 4.4-11.0 [facility] Bedside Glucoseon 05-03-2025 FINGERSTICK GLU 230 mg/dL High 74-106 [facility] Comment on above: Result Comment: CHAUNCEY RIZO OF PATIENT CARE PER NURSING PROTOCOL Performed By: #### L 501.080 ####[facility] [address] [place], [address] FINGERSTICK GLU 237 mg/dL High 74-106 [facility] Comment on above: Result Comment: CHAUNCEY GEMENT OF PATIENT CARE PER NURSING PROTOCOL Performed By: #### L 501.080 ####[facility] [address] [place], [address] FINGERSTICK GLU 220 mg/dL High 74-106 [facility] Comment on above: Result Comment: CHAUNCEY GEMENT OF PATIENT CARE PER NURSING PROTOCOL Performed By: #### L 501.080 ####[facility] [address] [place], [address] CBC W/Diff, Automatedon 06-0 5-5 Absolute Lymph 1.14 X10 3/uL Normal 0.83-4.51 [facility] Comment on above: Performed By: #### L 100.0100, L500.4050 ####[facility] [address] [place], [address] Absolute Neut 3.5 X10 3/uL Normal 2.0-7.7 [facility] Comment on above: Performed By: #### L 100.0100, L500.4050 ####[facility] [address] [place], [address] Basophils/100 WBC (Bld) 0.7 % Normal 0-1 [facility] Comment on above: Performed By: #### L 100.0100, L500.4050 ####[facility] [address] [place], [address] Eosinophils/100 WBC (Bld) 3.1 % Normal 0-5 [facility] Comment on above: Performed By: #### L 100.0100, L500.4050 ####[facility] [address] [place], [address] Erythrocyte distribution width (RBC) [Ratio] 12.5 % Normal 11.6-14.6 [facility] Comment on above: Performed By: #### L 100.0100, L500.4050 ####[facility] [address] [place], [address] Hematocrit (Bld) [Volume fraction] 31.0 % Low 37-47 [facility] Comment on above: Performed By: #### L 100.0100, L500.4050 ####[facility] [address] [place], [address] Hemoglobin (Bld) [Mass/Vol] 10.4 g/dL Low 12.0-15.0 [facility] Comment on above: Performed By: #### L 100.0100, L500.4050 ####[facility] [address] [place], [address] IG% 0.300 Normal 0.0-0.9 [facility] Comment on above: Result Comment: IG% - Immature Granulocytes (promyelocytes, myelocytes andmetamyelocytes) > 1% indicates that a LEFT SHIFT is Present. Performed By: #### L 100.0100, L500.4050 ####[facility] [address] [place], [address] Lymphocytes/100 WBC (Bld) 19.7 % Normal 19-41 [facility] Comment on above: Performed By: #### L 100.0100, L500.4050 ####[facility] [address] [place], [address] MCH (RBC) [Entitic mass] 35.6 pg High 27.0-32.0 [facility] Comment on above: Performed By: #### L 100.0100, L500.4050 ####[facility] [address] [place], [address] MCHC (RBC) [Mass/Vol] 33.5 g/dL Normal 32-36 [facility] Comment on above: Performed By: #### L 100.0100, L500.4050 ####[facility] [address] [place], [address] MCV (RBC) [Entitic vol] 106.2 fL High 81-99 [facility] Comment on above: Performed By: #### L 100.0100, L500.4050 ####[facility] [address] [place], [address] Monocytes/100 WBC (Bld) 15.1 % High 0-10 [facility] Comment on above: Performed By: #### L 100.0100, L500.4050 ####[facility] [address] [place], [address] Neutrophils/100 WBC (Bld) 61.1 % Normal 47-70 [facility] Comment on above: Performed By: #### L 100.0100, L500.4050 ####[facility] [address] [place], [address] Nucleated RBC (Bld) [#/Vol] 0 10*3/uL Normal 0-5 [facility] Comment on above: Performed By: #### L 100.0100, L500.4050 ####[facility] [address] [place], [address] Platelet mean volume (Bld) [Entitic vol] 10.2 fL Normal 6.2-12.0 [facility] Comment on above: Performed By: #### L 100.0100, L500.4050 ####[facility] [address] [place], [address] Platelets (Bld) [#/Vol] 297 10*3/uL Normal 150-450 [facility] Comment on above: Performed By: #### L 100.0100, L500.4050 ####[facility] [address] [place], [address] RBC (Bld) [#/Vol] 2.92 10*6/uL Low 4.2-5.4 [facility] Comment on above: Performed By: #### L 100.0100, L500.4050 ####[facility] [address] [place], [address] RDW SD 49.1 fl High 35.1-43.9 [facility] Comment on above: Performed By: #### L 100.0100, L500.4050 ####[facility] [address] [place], [address] WBC (Bld) [#/Vol] 5.8 10*3/uL Normal 4.4-11.0 [facility] Comment on above: Performed By: #### L 100.0100, L500.4050 ####[facility] [address] [place], [address] Comprehensive Metabolic Prof [facility] 05-03-2025 Albumin [Mass/Vol] 3.1 g/dL Low 3.5-5.0 [facility] Comment on above: Performed By: #### L 100.0100, L500.4050 ####[facility] [address] [place], [address] Albumin/Globulin [Mass ratio] 1.1 {ratio} Normal 0.9-2.4 [facility] Comment on above: Performed By: #### L 100.0100, L500.4050 ####[facility] [address] [place], [address] ALK PHOS 311 U/L High 35-104 [facility] Comment on above: Performed By: #### L 100.0100, L500.4050 ####[facility] [address] [place], [address] ALT [Catalytic activity/Vol] 38 U/L High <=34 [facility] Comment on above: Performed By: #### L 100.0100, L500.4050 ####[facility] [address] [place], [address] AST [Catalytic activity/Vol] 48 U/L High <=31 [facility] Comment on above: Performed By: #### L 100.0100, L500.4050 ####[facility] [address] [place], [address] Bilirubin [Mass/Vol] 0.32 mg/dL Normal 0.00-1.30 [facility] Comment on above: Performed By: #### L 100.0100, L500.4050 ####[facility] [address] [place], [address] BUN/CRE 12.9 RATIO Normal 10-20 [facility] Comment on above: Performed By: #### L 100.0100, L500.4050 ####[facility] [address] [place], [address] Calcium [Mass/Vol] 8.5 mg/dL Normal 7.6-11.0 [facility] Comment on above: Performed By: #### L 100.0100, L500.4050 ####[facility] [address] [place], [address] Chloride [Moles/Vol] 97 mmol/L Low 98-108 [facility] Comment on above: Performed By: #### L 100.0100, L500.4050 ####[facility] [address] [place], [address] CO2 [Moles/Vol] 28.2 mmol/L Normal 21.0-32.0 [facility] Comment on above: Performed By: #### L 100.0100, L500.4050 ####[facility] [address] [place], [address] Creatinine [Mass/Vol] 0.58 mg/dL Low 0.70-1.20 [facility] Comment on above: Performed By: #### L 100.0100, L500.4050 ####[facility] [address] [place], [address] ECRCL 102.43 ml/min Normal 50-250 [facility] Comment on above: Performed By: #### L 100.0100, L500.4050 ####[facility] [address] [place], [address] GAP 9 Normal 5-15 [facility] Comment on above: Performed By: #### L 100.0100, L500.4050 ####[facility] [address] [place], [address] GFR/1.73 sq M.predicted among non-blacks MDRD (S/P/Bld) [Vol rate/Area] 112 mL/min/{1.73_m2} Normal >60 [facility] Comment on above: Result Comment: mL/m in/1.73m2 CKD-EPI Creatinine Equation (2020) Performed By: #### L 100.0100, L500.4050 ####[facility] [address] [place], [address] Globulin (S) [Mass/Vol] 2.8 g/dL Normal 2.2-4.2 [facility] Comment on above: Performed By: #### L 100.0100, L500.4050 ####[facility] [address] [place], [address] Glucose [Mass/Vol] 227 mg/dL High 70-99 [facility] Comment on above: Performed By: #### L 100.0100, L500.4050 ####[facility] [address] [place], [address] Potassium [Moles/Vol] 4.8 mmol/L Normal 3.3-5.1 [facility] Comment on above: Performed By: #### L 100.0100, L500.4050 ####[facility] [address] [place], [address] Sodium [Moles/Vol] 135 mmol/L Normal 133-145 [facility] Comment on above: Performed By: #### L 100.0100, L500.4050 ####[facility] [address] [place], [address] T PROT 5.9 g/dL Normal 5.9-8.4 [facility] Comment on above: Performed By: #### L 100.0100, L500.4050 ####[facility] [address] [place], [address] Urea nitrogen [Mass/Vol] 7 mg/dL Normal 4-19 [facility] Comment on above: Performed By: #### L 100.0100, L500.4050 ####[facility] [address] [place], [address] Bedside Glucoseon 05-02-2025 FINGERSTICK GLU 288 mg/dL High 74-106 [facility] Comment on above: Result Comment: CHAUNCEY GEMENT OF PATIENT CARE PER NURSING PROTOCOL Performed By: #### L 501.080 ####[facility] [address] [place], [address] FINGERSTICK GLU 198 mg/dL High 74-106 [facility] Comment on above: Result Comment: CHAUNCEY GEMENT OF PATIENT CARE PER NURSING PROTOCOL Performed By: #### L 501.080 ####[facility] [address] [place], [address] FINGERSTICK GLU 196 mg/dL High 74-106 [facility] Comment on above: Result Comment: CHAUNCEY GEMENT OF PATIENT CARE PER NURSING PROTOCOL Performed By: #### L 501.080 ####[facility] [address] [place], [address] CBC W/Diff, Automatedon 06-0 4-2024 Absolute Lymph 1.17 X10 3/uL Normal 0.83-4.51 [facility] Comment on above: Performed By: #### L 501.5200, L500.4050, L100.0100, L501.2300 ####[facility] [address] [place], [address] Absolute Neut 3.0 X10 3/uL Normal 2.0-7.7 [facility] Comment on above: Performed By: #### L 501.5200, L500.4050, L100.0100, L501.2300 ####[facility] [address] [place], [address] Basophils/100 WBC (Bld) 0.6 % Normal 0-1 [facility] Comment on above: Performed By: #### L 501.5200, L500.4050, L100.0100, L501.2300 ####[facility] [address] [place], [address] Eosinophils/100 WBC (Bld) 3.3 % Normal 0-5 [facility] Comment on above: Performed By: #### L 501.5200, L500.4050, L100.0100, L501.2300 ####[facility] [address] [place], [address] Erythrocyte distribution width (RBC) [Ratio] 12.5 % Normal 11.6-14.6 [facility] Comment on above: Performed By: #### L 501.5200, L500.4050, L100.0100, L501.2300 ####[facility] [address] [place], [address] Hematocrit (Bld) [Volume fraction] 30.1 % Low 37-47 [facility] Comment on above: Performed By: #### L 501.5200, L500.4050, L100.0100, L501.2300 ####[facility] [address] [place], [address] Hemoglobin (Bld) [Mass/Vol] 10.4 g/dL Low 12.0-15.0 [facility] Comment on above: Performed By: #### L 501.5200, L500.4050, L100.0100, L501.2300 ####[facility] [address] [place], [address] IG% 0.600 Normal 0.0-0.9 [facility] Comment on above: Result Comment: IG% - Immature Granulocytes (promyelocytes, myelocytes andmetamyelocytes) > 1% indicates that a LEFT SHIFT is Present. Performed By: #### L 501.5200, L500.4050, L100.0100, L501.2300 ####[facility] [address] [place], [address] Lymphocytes/100 WBC (Bld) 22.5 % Normal 19-41 [facility] Comment on above: Performed By: #### L 501.5200, L500.4050, L100.0100, L501.2300 ####[facility] [address] [place], [address] MCH (RBC) [Entitic mass] 36.9 pg High 27.0-32.0 [facility] Comment on above: Performed By: #### L 501.5200, L500.4050, L100.0100, L501.2300 ####[facility] [address] [place], [address] MCHC (RBC) [Mass/Vol] 34.6 g/dL Normal 32-36 [facility] Comment on above: Performed By: #### L 501.5200, L500.4050, L100.0100, L501.2300 ####[facility] [address] [place], [address] MCV (RBC) [Entitic vol] 106.7 fL High 81-99 [facility] Comment on above: Performed By: #### L 501.5200, L500.4050, L100.0100, L501.2300 ####[facility] [address] [place], [address] Monocytes/100 WBC (Bld) 15.8 % High 0-10 [facility] Comment on above: Performed By: #### L 501.5200, L500.4050, L100.0100, L501.2300 ####[facility] [address] [place], [address] Neutrophils/100 WBC (Bld) 57.2 % Normal 47-70 [facility] Comment on above: Performed By: #### L 501.5200, L500.4050, L100.0100, L501.2300 ####[facility] [address] [place], [address] Nucleated RBC (Bld) [#/Vol] 0 10*3/uL Normal 0-5 [facility] Comment on above: Performed By: #### L 501.5200, L500.4050, L100.0100, L501.2300 ####[facility] [address] [place], [address] Platelet mean volume (Bld) [Entitic vol] 10.3 fL Normal 6.2-12.0 [facility] Comment on above: Performed By: #### L 501.5200, L500.4050, L100.0100, L501.2300 ####[facility] [address] [place], [address] Platelets (Bld) [#/Vol] 247 10*3/uL Normal 150-450 [facility] Comment on above: Performed By: #### L 501.5200, L500.4050, L100.0100, L501.2300 ####[facility] [address] [place], [address] RBC (Bld) [#/Vol] 2.82 10*6/uL Low 4.2-5.4 [facility] Comment on above: Performed By: #### L 501.5200, L500.4050, L100.0100, L501.2300 ####[facility] [address] [place], [address] RDW SD 49.4 fl High 35.1-43.9 [facility] Comment on above: Performed By: #### L 501.5200, L500.4050, L100.0100, L501.2300 ####[facility] [address] [place], [address] WBC (Bld) [#/Vol] 5.2 10*3/uL Normal 4.4-11.0 [facility] Comment on above: Performed By: #### L 501.5200, L500.4050, L100.0100, L501.2300 ####[facility] [address] [place], [address] Comprehensive Metabolic [facility] 05-02-2025 Albumin [Mass/Vol] 3.1 g/dL Low 3.5-5.0 [facility] Comment on above: Performed By: #### L 501.5200, L500.4050, L100.0100, L501.2300 ####[facility] [address] [place], [address] Albumin/Globulin [Mass ratio] 1.2 {ratio} Normal 0.9-2.4 [facility] Comment on above: Performed By: #### L 501.5200, L500.4050, L100.0100, L501.2300 ####[facility] [address] [place], [address] ALK PHOS 230 U/L High 35-104 [facility] Comment on above: Performed By: #### L 501.5200, L500.4050, L100.0100, L501.2300 ####[facility] [address] [place], [address] ALT [Catalytic activity/Vol] 33 U/L Normal <=34 [facility] Comment on above: Performed By: #### L 501.5200, L500.4050, L100.0100, L501.2300 ####[facility] [address] [place], [address] AST [Catalytic activity/Vol] 40 U/L High <=31 [facility] Comment on above: Performed By: #### L 501.5200, L500.4050, L100.0100, L501.2300 ####[facility] [address] [place], [address] Bilirubin [Mass/Vol] 0.49 mg/dL Normal 0.00-1.30 [facility] Comment on above: Performed By: #### L 501.5200, L500.4050, L100.0100, L501.2300 ####[facility] [address] [place], [address] BUN/CRE 13.6 RATIO Normal 10-20 [facility] Comment on above: Performed By: #### L 501.5200, L500.4050, L100.0100, L501.2300 ####[facility] [address] [place], [address] Calcium [Mass/Vol] 8.7 mg/dL Normal 7.6-11.0 [facility] Comment on above: Performed By: #### L 501.5200, L500.4050, L100.0100, L501.2300 ####[facility] [address] [place], [address] Chloride [Moles/Vol] 95 mmol/L Low 98-108 [facility] Comment on above: Performed By: #### L 501.5200, L500.4050, L100.0100, L501.2300 ####[facility] [address] [place], [address] CO2 [Moles/Vol] 28.5 mmol/L Normal 21.0-32.0 [facility] Comment on above: Performed By: #### L 501.5200, L500.4050, L100.0100, L501.2300 ####[facility] [address] [place], [address] Creatinine [Mass/Vol] 0.52 mg/dL Low 0.70-1.20 [facility] Comment on above: Performed By: #### L 501.5200, L500.4050, L100.0100, L501.2300 ####[facility] [address] [place], [address] ECRCL 114.25 ml/min Normal 50-250 [facility] Comment on above: Performed By: #### L 501.5200, L500.4050, L100.0100, L501.2300 ####[facility] [address] [place], [address] GAP 11 Normal 5-15 [facility] Comment on above: Performed By: #### L 501.5200, L500.4050, L100.0100, L501.2300 ####[facility] [address] [place], [address] GFR/1.73 sq M.predicted among non-blacks MDRD (S/P/Bld) [Vol rate/Area] 115 mL/min/{1.73_m2} Normal >60 [facility] Comment on above: Result Comment: mL/m in/1.73m2 CKD-EPI Creatinine Equation (2020) Performed By: #### L 501.5200, L500.4050, L100.0100, L501.2300 ####[facility] [address] [place], [address] Globulin (S) [Mass/Vol] 2.7 g/dL Normal 2.2-4.2 [facility] Comment on above: Performed By: #### L 501.5200, L500.4050, L100.0100, L501.2300 ####[facility] [address] [place], [address] Glucose [Mass/Vol] 197 mg/dL High 70-99 [facility] Comment on above: Performed By: #### L 501.5200, L500.4050, L100.0100, L501.2300 ####[facility] [address] [place], [address] Potassium [Moles/Vol] 4.2 mmol/L Normal 3.3-5.1 [facility] Comment on above: Performed By: #### L 501.5200, L500.4050, L100.0100, L501.2300 ####[facility] [address] [place], [address] Sodium [Moles/Vol] 134 mmol/L Normal 133-145 [facility] Comment on above: Performed By: #### L 501.5200, L500.4050, L100.0100, L501.2300 ####[facility] [address] [place], [address] T PROT 5.8 g/dL Low 5.9-8.4 [facility] Comment on above: Performed By: #### L 501.5200, L500.4050, L100.0100, L501.2300 ####[facility] [address] [place], [address] Urea nitrogen [Mass/Vol] 7 mg/dL Normal 4-19 [facility] Comment on above: Performed By: #### L 501.5200, L500.4050, L100.0100, L501.2300 ####[facility] [address] [place], [address] Magnesiumon 05-02-2025 Magnesium [Mass/Vol] 1.2 mg/dL Low 1.5-2.2 [facility] Comment on above: Performed By: #### L 501.5200, L500.4050, L100.0100, L501.2300 ####[facility] [address] [place], [address] Magnesium measurement (mass/ volume)Ordered By: Canelo Myers on 05-02-2025 Magnesium (Unsp spec) [Mass/Vol] 1.2 mg/dL Low 1.5-2.2 [facility] Phosphoruson 05-02-2025 Phosphate [Mass/Vol] 5.0 mg/dL High 2.7-4.5 [facility] Comment on above: Performed By: #### L 501.5200, L500.4050, L100.0100, L501.2300 ####[facility] [address] [place], [address] Bedside Glucoseon 05-01-2025 FINGERSTICK GLU 234 mg/dL High 74-106 [facility] Comment on above: Result Comment: CHAUNCEY GEMENT OF PATIENT CARE PER NURSING PROTOCOL Performed By: #### L 501.080 ####[facility] [address] [place], [address] FINGERSTICK GLU 316 mg/dL High 74-106 [facility] Comment on above: Result Comment: CHAUNCEY GEMENT OF PATIENT CARE PER NURSING PROTOCOL Performed By: #### L 501.080 ####[facility] [address] [place], [address] FINGERSTICK GLU 168 mg/dL High 74-106 [facility] Comment on above: Result Comment: CHAUNCEY RIZO OF PATIENT CARE PER NURSING PROTOCOL Performed By: #### L 501.080 ####[facility] [address] [place], [address] Bilirubin directOrdered By: Canelo Myers on 05-01-2025 Bilirubin.direct [Mass/Vol] 0.32 mg/dL High 0.00-0.30 [facility] Liver Profileon 05-01-2025 Albumin [Mass/Vol] 3.0 g/dL Low 3.5-5.0 [facility] Comment on above: Performed By: #### L 500.3400 ####[facility] [address] [place], [address] ALK PHOS 166 U/L High 35-104 [facility] Comment on above: Performed By: #### L 500.3400 ####[facility] [address] [place], [address] ALT [Catalytic activity/Vol] 39 U/L High <=34 [facility] Comment on above: Performed By: #### L 500.3400 ####[facility] [address] [place], [address] AST [Catalytic activity/Vol] 73 U/L High <=31 [facility] Comment on above: Performed By: #### L 500.3400 ####[facility] [address] [place], [address] Bilirubin [Mass/Vol] 0.59 mg/dL Normal 0.00-1.30 [facility] Comment on above: Performed By: #### L 500.3400 ####[facility] [address] [place], [address] Bilirubin.direct [Mass/Vol] 0.32 mg/dL High 0.00-0.30 [facility] Comment on above: Performed By: #### L 500.3400 ####[facility] [address] [place], [address] Globulin (S) [Mass/Vol] 2.7 g/dL Normal 2.2-4.2 [facility] Comment on above: Performed By: #### L 500.3400 ####[facility] [address] [place], [address] T PROT 5.7 g/dL Low 5.9-8.4 [facility] Comment on above: Performed By: #### L 500.3400 ####[facility] [address] [place], [address] Phosphoruson 05-01-2025 Phosphate [Mass/Vol] 5.1 mg/dL High 2.7-4.5 [facility] Comment on above: Performed By: #### L 501.2300 ####[facility] [address] [place], [address] Basic Metabolic Profile (BMP )on 04-30-2025 BUN/CRE UNABLE TO CALCULATE Low 10-20 [facility] Comment on above: Performed By: #### L 500.2500, L500.3400, L100.0100 ####[facility] [address] [place], [address] Calcium [Mass/Vol] 8.5 mg/dL Normal 7.6-11.0 [facility] Comment on above: Performed By: #### L 500.2500, L500.3400, L100.0100 ####[facility] [address] [place], [address] Chloride [Moles/Vol] 98 mmol/L Normal 98-108 [facility] Comment on above: Performed By: #### L 500.2500, L500.3400, L100.0100 ####[facility] [address] [place], [address] CO2 [Moles/Vol] 28.1 mmol/L Normal 21.0-32.0 [facility] Comment on above: Performed By: #### L 500.2500, L500.3400, L100.0100 ####[facility] [address] [place], [address] Creatinine [Mass/Vol] 0.41 mg/dL Low 0.70-1.20 [facility] Comment on above: Performed By: #### L 500.2500, L500.3400, L100.0100 ####[facility] [address] [place], [address] ECRCL 144.90 ml/min Normal 50-250 [facility] Comment on above: Performed By: #### L 500.2500, L500.3400, L100.0100 ####[facility] [address] [place], [address] GAP 13 Normal 5-15 [facility] Comment on above: Performed By: #### L 500.2500, L500.3400, L100.0100 ####[facility] [address] [place], [address] GFR/1.73 sq M.predicted among non-blacks MDRD (S/P/Bld) [Vol rate/Area] 121 mL/min/{1.73_m2} Normal >60 [facility] Comment on above: Result Comment: mL/m in/1.73m2 CKD-EPI Creatinine Equation (2020) Performed By: #### L 500.2500, L500.3400, L100.0100 ####[facility] [address] [place], [address] Glucose [Mass/Vol] 124 mg/dL High 70-99 [facility] Comment on above: Performed By: #### L 500.2500, L500.3400, L100.0100 ####[facility] [address] [place], [address] Potassium [Moles/Vol] 2.7 mmol/L Invalid Interpretation Code 3.3-5.1 [facility] Comment on above: Result Comment: Crit ical Result(s) Called at: by:??Results read back bysame. Performed By: #### L 500.2500, L500.3400, L100.0100 ####[facility] [address] [place], [address] Sodium [Moles/Vol] 139 mmol/L Normal 133-145 [facility] Comment on above: Performed By: #### L 500.2500, L500.3400, L100.0100 ####[facility] [address] [place], [address] Urea nitrogen [Mass/Vol] mg/dL Low 4-19 [facility] Comment on above: Performed By: #### L 500.2500, L500.3400, L100.0100 ####[facility] [address] [place], [address] Bedside Glucoseon 04-30-2025 FINGERSTICK GLU 147 mg/dL High 74-106 [facility] Comment on above: Result Comment: CHAUNCEY GEMENT OF PATIENT CARE PER NURSING PROTOCOL Performed By: #### L 501.080 ####[facility] [address] [place], [address] FINGERSTICK GLU 230 mg/dL High 74-106 [facility] Comment on above: Result Comment: CHAUNCEY GEMENT OF PATIENT CARE PER NURSING PROTOCOL Performed By: #### L 501.080 ####[facility] [address] [place], [address] FINGERSTICK GLU 149 mg/dL High 74-106 [facility] Comment on above: Result Comment: CHAUNCEY GEMENT OF PATIENT CARE PER NURSING PROTOCOL Performed By: #### L 501.080 ####[facility] [address] [place], [address] CBC W/Diff, Automatedon 06-0 2-5 Absolute Lymph 1.39 X10 3/uL Normal 0.83-4.51 [facility] Comment on above: Performed By: #### L 500.2500, L500.3400, L100.0100 ####[facility] [address] [place], [address] Absolute Neut 3.6 X10 3/uL Normal 2.0-7.7 [facility] Comment on above: Performed By: #### L 500.2500, L500.3400, L100.0100 ####[facility] [address] [place], [address] Basophils/100 WBC (Bld) 0.5 % Normal 0-1 [facility] Comment on above: Performed By: #### L 500.2500, L500.3400, L100.0100 ####[facility] [address] [place], [address] Eosinophils/100 WBC (Bld) 2.0 % Normal 0-5 [facility] Comment on above: Performed By: #### L 500.2500, L500.3400, L100.0100 ####[facility] [address] [place], [address] Erythrocyte distribution width (RBC) [Ratio] 12.6 % Normal 11.6-14.6 [facility] Comment on above: Performed By: #### L 500.2500, L500.3400, L100.0100 ####[facility] [address] [place], [address] Hematocrit (Bld) [Volume fraction] 29.7 % Low 37-47 [facility] Comment on above: Performed By: #### L 500.2500, L500.3400, L100.0100 ####[facility] [address] [place], [address] Hemoglobin (Bld) [Mass/Vol] 10.3 g/dL Low 12.0-15.0 [facility] Comment on above: Performed By: #### L 500.2500, L500.3400, L100.0100 ####[facility] [address] [place], [address] IG% 0.500 Normal 0.0-0.9 [facility] Comment on above: Result Comment: IG% - Immature Granulocytes (promyelocytes, myelocytes andmetamyelocytes) > 1% indicates that a LEFT SHIFT is Present. Performed By: #### L 500.2500, L500.3400, L100.0100 ####[facility] [address] [place], [address] Lymphocytes/100 WBC (Bld) 23.4 % Normal 19-41 [facility] Comment on above: Performed By: #### L 500.2500, L500.3400, L100.0100 ####[facility] [address] [place], [address] MCH (RBC) [Entitic mass] 36.7 pg High 27.0-32.0 [facility] Comment on above: Performed By: #### L 500.2500, L500.3400, L100.0100 ####[facility] [address] [place], [address] MCHC (RBC) [Mass/Vol] 34.7 g/dL Normal 32-36 [facility] Comment on above: Performed By: #### L 500.2500, L500.3400, L100.0100 ####[facility] [address] [place], [address] MCV (RBC) [Entitic vol] 105.7 fL High 81-99 [facility] Comment on above: Performed By: #### L 500.2500, L500.3400, L100.0100 ####[facility] [address] [place], [address] Monocytes/100 WBC (Bld) 13.8 % High 0-10 [facility] Comment on above: Performed By: #### L 500.2500, L500.3400, L100.0100 ####[facility] [address] [place], [address] Neutrophils/100 WBC (Bld) 59.8 % Normal 47-70 [facility] Comment on above: Performed By: #### L 500.2500, L500.3400, L100.0100 ####[facility] [address] [place], [address] Nucleated RBC (Bld) [#/Vol] 0 10*3/uL Normal 0-5 [facility] Comment on above: Performed By: #### L 500.2500, L500.3400, L100.0100 ####[facility] [address] [place], [address] Platelet mean volume (Bld) [Entitic vol] 10.4 fL Normal 6.2-12.0 [facility] Comment on above: Performed By: #### L 500.2500, L500.3400, L100.0100 ####[facility] [address] [place], [address] Platelets (Bld) [#/Vol] 145 10*3/uL Low 150-450 [facility] Comment on above: Performed By: #### L 500.2500, L500.3400, L100.0100 ####[facility] [address] [place], [address] RBC (Bld) [#/Vol] 2.81 10*6/uL Low 4.2-5.4 [facility] Comment on above: Performed By: #### L 500.2500, L500.3400, L100.0100 ####[facility] [address] [place], [address] RDW SD 49.7 fl High 35.1-43.9 [facility] Comment on above: Performed By: #### L 500.2500, L500.3400, L100.0100 ####[facility] [address] [place], [address] WBC (Bld) [#/Vol] 6.0 10*3/uL Normal 4.4-11.0 [facility] Comment on above: Performed By: #### L 500.2500, L500.3400, L100.0100 ####[facility] [address] [place], [address] Liver Profileon 04-30-2025 Albumin [Mass/Vol] 3.2 g/dL Low 3.5-5.0 [facility] Comment on above: Performed By: #### L 500.2500, L500.3400, L100.0100 ####[facility] [address] [place], [address] ALK PHOS 98 U/L Normal 35-104 [facility] Comment on above: Performed By: #### L 500.2500, L500.3400, L100.0100 ####[facility] [address] [place], [address] ALT [Catalytic activity/Vol] 32 U/L Normal <=34 [facility] Comment on above: Performed By: #### L 500.2500, L500.3400, L100.0100 ####[facility] [address] [place], [address] AST [Catalytic activity/Vol] 39 U/L High <=31 [facility] Comment on above: Performed By: #### L 500.2500, L500.3400, L100.0100 ####[facility] [address] [place], [address] Bilirubin [Mass/Vol] 0.67 mg/dL Normal 0.00-1.30 [facility] Comment on above: Performed By: #### L 500.2500, L500.3400, L100.0100 ####[facility] [address] [place], [address] Bilirubin.direct [Mass/Vol] 0.41 mg/dL High 0.00-0.30 [facility] Comment on above: Performed By: #### L 500.2500, L500.3400, L100.0100 ####[facility] [address] [place], [address] Globulin (S) [Mass/Vol] 2.6 g/dL Normal 2.2-4.2 [facility] Comment on above: Performed By: #### L 500.2500, L500.3400, L100.0100 ####[facility] [address] [place], [address] T PROT 5.9 g/dL Normal 5.9-8.4 [facility] Comment on above: Performed By: #### L 500.2500, L500.3400, L100.0100 ####[facility] [address] [place], [address] Magnesiumon 04-30-2025 Magnesium [Mass/Vol] 1.5 mg/dL Normal 1.5-2.2 [facility] Comment on above: Performed By: #### L 501.5200 ####[facility] [address] [place], [address] Basic Metabolic Profile (BMP )on 04-29-2025 BUN/CRE UNABLE TO CALCULATE Low 10-20 [facility] Comment on above: Performed By: #### L 500.2500, L500.3400, L501.5200, L100.0100 ####[facility] [address] [place], [address] Calcium [Mass/Vol] 8.2 mg/dL Normal 7.6-11.0 [facility] Comment on above: Performed By: #### L 500.2500, L500.3400, L501.5200, L100.0100 ####[facility] [address] [place], [address] Chloride [Moles/Vol] 103 mmol/L Normal 98-108 [facility] Comment on above: Performed By: #### L 500.2500, L500.3400, L501.5200, L100.0100 ####[facility] [address] [place], [address] CO2 [Moles/Vol] 26.0 mmol/L Normal 21.0-32.0 [facility] Comment on above: Performed By: #### L 500.2500, L500.3400, L501.5200, L100.0100 ####[facility] [address] [place], [address] Creatinine [Mass/Vol] 0.40 mg/dL Low 0.70-1.20 [facility] Comment on above: Performed By: #### L 500.2500, L500.3400, L501.5200, L100.0100 ####[facility] [address] [place], [address] ECRCL 148.53 ml/min Normal 50-250 [facility] Comment on above: Performed By: #### L 500.2500, L500.3400, L501.5200, L100.0100 ####[facility] [address] [place], [address] GAP 11 Normal 5-15 [facility] Comment on above: Performed By: #### L 500.2500, L500.3400, L501.5200, L100.0100 ####[facility] [address] [place], [address] GFR/1.73 sq M.predicted among non-blacks MDRD (S/P/Bld) [Vol rate/Area] 122 mL/min/{1.73_m2} Normal >60 [facility] Comment on above: Result Comment: mL/m in/1.73m2 CKD-EPI Creatinine Equation (2020) Performed By: #### L 500.2500, L500.3400, L501.5200, L100.0100 ####[facility] [address] [place], [address] Glucose [Mass/Vol] 126 mg/dL High 70-99 [facility] Comment on above: Performed By: #### L 500.2500, L500.3400, L501.5200, L100.0100 ####[facility] [address] [place], [address] Potassium [Moles/Vol] 2.8 mmol/L Low 3.3-5.1 [facility] Comment on above: Performed By: #### L 500.2500, L500.3400, L501.5200, L100.0100 ####[facility] [address] [place], [address] Sodium [Moles/Vol] 140 mmol/L Normal 133-145 [facility] Comment on above: Performed By: #### L 500.2500, L500.3400, L501.5200, L100.0100 ####[facility] [address] [place], [address] Urea nitrogen [Mass/Vol] mg/dL Low 4-19 [facility] Comment on above: Performed By: #### L 500.2500, L500.3400, L501.5200, L100.0100 ####[facility] [address] [place], [address] Bedside Glucoseon 04-29-2025 FINGERSTICK GLU 187 mg/dL High 74-106 [facility] Comment on above: Result Comment: CHAUNCEY GEMENT OF PATIENT CARE PER NURSING PROTOCOL Performed By: #### L 501.080 ####[facility] [address] [place], [address] FINGERSTICK GLU 121 mg/dL High -106 [facility] Comment on above: Result Comment: CHAUNCEY GEMENT OF PATIENT CARE PER NURSING PROTOCOL Performed By: #### L 501.080 ####[facility] [address] [place], [address] FINGERSTICK GLU 218 mg/dL High 74-106 [facility] Comment on above: Result Comment: CHAUNCEY GEMENT OF PATIENT CARE PER NURSING PROTOCOL Performed By: #### L 501.080 ####[facility] [address] [place], [address] FINGERSTICK GLU 132 mg/dL High -106 [facility] Comment on above: Result Comment: CHAUNCEY GEMENT OF PATIENT CARE PER NURSING PROTOCOL Performed By: #### L 501.080 ####[facility] [address] [place], [address] CBC W/Diff, Automatedon 06-0 Absolute Lymph 1.02 X10 3/uL Normal 0.83-4.51 [facility] Comment on above: Performed By: #### L 500.2500, L500.3400, L501.5200, L100.0100 ####[facility] [address] [place], [address] Absolute Neut 5.3 X10 3/uL Normal 2.0-7.7 [facility] Comment on above: Performed By: #### L 500.2500, L500.3400, L501.5200, L100.0100 ####[facility] [address] [place], [address] Basophils/100 WBC (Bld) 0.4 % Normal 0-1 [facility] Comment on above: Performed By: #### L 500.2500, L500.3400, L501.5200, L100.0100 ####[facility] [address] [place], [address] Eosinophils/100 WBC (Bld) 1.1 % Normal 0-5 [facility] Comment on above: Performed By: #### L 500.2500, L500.3400, L501.5200, L100.0100 ####[facility] [address] [place], [address] Erythrocyte distribution width (RBC) [Ratio] 12.2 % Normal 11.6-14.6 [facility] Comment on above: Performed By: #### L 500.2500, L500.3400, L501.5200, L100.0100 ####[facility] [address] [place], [address] Hematocrit (Bld) [Volume fraction] 28.7 % Low 37-47 [facility] Comment on above: Performed By: #### L 500.2500, L500.3400, L501.5200, L100.0100 ####[facility] [address] [place], [address] Hemoglobin (Bld) [Mass/Vol] 9.9 g/dL Low 12.0-15.0 [facility] Comment on above: Performed By: #### L 500.2500, L500.3400, L501.5200, L100.0100 ####[facility] [address] [place], [address] IG% 0.600 Normal 0.0-0.9 [facility] Comment on above: Result Comment: IG% - Immature Granulocytes (promyelocytes, myelocytes andmetamyelocytes) > 1% indicates that a LEFT SHIFT is Present. Performed By: #### L 500.2500, L500.3400, L501.5200, L100.0100 ####[facility] [address] [place], [address] Lymphocytes/100 WBC (Bld) 14.1 % Low 19-41 [facility] Comment on above: Performed By: #### L 500.2500, L500.3400, L501.5200, L100.0100 ####[facility] [address] [place], [address] MCH (RBC) [Entitic mass] 36.5 pg High 27.0-32.0 [facility] Comment on above: Performed By: #### L 500.2500, L500.3400, L501.5200, L100.0100 ####[facility] [address] [place], [address] MCHC (RBC) [Mass/Vol] 34.5 g/dL Normal 32-36 [facility] Comment on above: Performed By: #### L 500.2500, L500.3400, L501.5200, L100.0100 ####[facility] [address] [place], [address] MCV (RBC) [Entitic vol] 105.9 fL High 81-99 [facility] Comment on above: Performed By: #### L 500.2500, L500.3400, L501.5200, L100.0100 ####[facility] [address] [place], [address] Monocytes/100 WBC (Bld) 10.9 % High 0-10 [facility] Comment on above: Performed By: #### L 500.2500, L500.3400, L501.5200, L100.0100 ####[facility] [address] [place], [address] Neutrophils/100 WBC (Bld) 72.9 % High 47-70 [facility] Comment on above: Performed By: #### L 500.2500, L500.3400, L501.5200, L100.0100 ####[facility] [address] [place], [address] Nucleated RBC (Bld) [#/Vol] 0 10*3/uL Normal 0-5 [facility] Comment on above: Performed By: #### L 500.2500, L500.3400, L501.5200, L100.0100 ####[facility] [address] [place], [address] Platelet mean volume (Bld) [Entitic vol] 10.5 fL Normal 6.2-12.0 [facility] Comment on above: Performed By: #### L 500.2500, L500.3400, L501.5200, L100.0100 ####[facility] [address] [place], [address] Platelets (Bld) [#/Vol] 110 10*3/uL Low 150-450 [facility] Comment on above: Performed By: #### L 500.2500, L500.3400, L501.5200, L100.0100 ####[facility] [address] [place], [address] RBC (Bld) [#/Vol] 2.71 10*6/uL Low 4.2-5.4 [facility] Comment on above: Performed By: #### L 500.2500, L500.3400, L501.5200, L100.0100 ####[facility] [address] [place], [address] RDW SD 47.6 fl High 35.1-43.9 [facility] Comment on above: Performed By: #### L 500.2500, L500.3400, L501.5200, L100.0100 ####[facility] [address] [place], [address] WBC (Bld) [#/Vol] 7.2 10*3/uL Normal 4.4-11.0 [facility] Comment on above: Performed By: #### L 500.2500, L500.3400, L501.5200, L100.0100 ####[facility] [address] [place], [address] Liver Profileon 04-29-2025 Albumin [Mass/Vol] 3.2 g/dL Low 3.5-5.0 [facility] Comment on above: Performed By: #### L 500.2500, L500.3400, L501.5200, L100.0100 ####[facility] [address] [place], [address] ALK PHOS 108 U/L High 35-104 [facility] Comment on above: Performed By: #### L 500.2500, L500.3400, L501.5200, L100.0100 ####[facility] [address] [place], [address] ALT [Catalytic activity/Vol] 37 U/L High <=34 [facility] Comment on above: Performed By: #### L 500.2500, L500.3400, L501.5200, L100.0100 ####[facility] [address] [place], [address] AST [Catalytic activity/Vol] 56 U/L High <=31 [facility] Comment on above: Performed By: #### L 500.2500, L500.3400, L501.5200, L100.0100 ####[facility] [address] [place], [address] Bilirubin [Mass/Vol] 0.71 mg/dL Normal 0.00-1.30 [facility] Comment on above: Performed By: #### L 500.2500, L500.3400, L501.5200, L100.0100 ####[facility] [address] [place], [address] Bilirubin.direct [Mass/Vol] 0.43 mg/dL High 0.00-0.30 [facility] Comment on above: Performed By: #### L 500.2500, L500.3400, L501.5200, L100.0100 ####[facility] [address] [place], [address] Globulin (S) [Mass/Vol] 2.4 g/dL Normal 2.2-4.2 [facility] Comment on above: Performed By: #### L 500.2500, L500.3400, L501.5200, L100.0100 ####[facility] [address] [place], [address] T PROT 5.6 g/dL Low 5.9-8.4 [facility] Comment on above: Performed By: #### L 500.2500, L500.3400, L501.5200, L100.0100 ####[facility] [address] [place], [address] Magnesiumon 04-29-2025 Magnesium [Mass/Vol] 1.5 mg/dL Normal 1.5-2.2 [facility] Comment on above: Performed By: #### L 500.2500, L500.3400, L501.5200, L100.0100 ####[facility] [address] [place], [address] Phosphoruson 04-29-2025 Phosphate [Mass/Vol] 2.0 mg/dL Low 2.7-4.5 [facility] Comment on above: Performed By: #### L 501.2300 ####[facility] [address] [place], [address] Basic Metabolic Profile (BMP )on 04-28-2025 BUN/CRE 6.9 RATIO Low 10-20 [facility] Comment on above: Performed By: #### L 500.2500, L500.3400, L501.5200, L501.2450 ####[facility] [address] [place], [address] Calcium [Mass/Vol] 8.3 mg/dL Normal 7.6-11.0 [facility] Comment on above: Performed By: #### L 500.2500, L500.3400, L501.5200, L501.2450 ####[facility] [address] [place], [address] Chloride [Moles/Vol] 100 mmol/L Normal 98-108 [facility] Comment on above: Performed By: #### L 500.2500, L500.3400, L501.5200, L501.2450 ####[facility] [address] [place], [address] CO2 [Moles/Vol] 24.9 mmol/L Normal 21.0-32.0 [facility] Comment on above: Performed By: #### L 500.2500, L500.3400, L501.5200, L501.2450 ####[facility] [address] [place], [address] Creatinine [Mass/Vol] 0.50 mg/dL Low 0.70-1.20 [facility] Comment on above: Performed By: #### L 500.2500, L500.3400, L501.5200, L501.2450 ####[facility] [address] [place], [address] ECRCL 118.82 ml/min Normal 50-250 [facility] Comment on above: Performed By: #### L 500.2500, L500.3400, L501.5200, L501.2450 ####[facility] [address] [place], [address] GAP 12 Normal 5-15 [facility] Comment on above: Performed By: #### L 500.2500, L500.3400, L501.5200, L501.2450 ####[facility] [address] [place], [address] GFR/1.73 sq M.predicted among non-blacks MDRD (S/P/Bld) [Vol rate/Area] 115 mL/min/{1.73_m2} Normal >60 [facility] Comment on above: Result Comment: mL/m in/1.73m2 CKD-EPI Creatinine Equation (2020) Performed By: #### L 500.2500, L500.3400, L501.5200, L501.2450 ####[facility] [address] [place], [address] Glucose [Mass/Vol] 103 mg/dL High 70-99 [facility] Comment on above: Performed By: #### L 500.2500, L500.3400, L501.5200, L501.2450 ####[facility] [address] [place], [address] Potassium [Moles/Vol] 3.2 mmol/L Low 3.3-5.1 [facility] Comment on above: Performed By: #### L 500.2500, L500.3400, L501.5200, L501.2450 ####[facility] [address] [place], [address] Sodium [Moles/Vol] 137 mmol/L Normal 133-145 [facility] Comment on above: Performed By: #### L 500.2500, L500.3400, L501.5200, L501.2450 ####[facility] [address] [place], [address] Urea nitrogen [Mass/Vol] 3 mg/dL Low 4-19 [facility] Comment on above: Performed By: #### L 500.2500, L500.3400, L501.5200, L501.2450 ####[facility] [address] [place], [address] Bedside Glucoseon 04-28-2025 FINGERSTICK GLU 140 mg/dL High 74-106 [facility] Comment on above: Result Comment: CHAUNCEY GEMENT OF PATIENT CARE PER NURSING PROTOCOL Performed By: #### L 501.080 ####[facility] [address] [place], [address] FINGERSTICK GLU 181 mg/dL High 74-106 [facility] Comment on above: Result Comment: CHAUNCEY GEMENT OF PATIENT CARE PER NURSING PROTOCOL Performed By: #### L 501.080 ####[facility] [address] [place], [address] FINGERSTICK GLU 104 mg/dL Normal 74-106 [facility] Comment on above: Result Comment: CHAUNCEY GEMENT OF PATIENT CARE PER NURSING PROTOCOL Performed By: #### L 501.080 ####[facility] [address] [place], [address] CBC W/Diff, Automatedon 05- Absolute Lymph 0.95 X10 3/uL Normal 0.83-4.51 [facility] Comment on above: Performed By: #### L 100.0100, L501.2300 ####[facility] [address] [place], [address] Absolute Neut 5.9 X10 3/uL Normal 2.0-7.7 [facility] Comment on above: Performed By: #### L 100.0100, L501.2300 ####[facility] [address] [place], [address] Basophils/100 WBC (Bld) 0.3 % Normal 0-1 [facility] Comment on above: Performed By: #### L 100.0100, L501.2300 ####[facility] [address] [place], [address] Eosinophils/100 WBC (Bld) 0.8 % Normal 0-5 [facility] Comment on above: Performed By: #### L 100.0100, L501.2300 ####[facility] [address] [place], [address] Erythrocyte distribution width (RBC) [Ratio] 12.2 % Normal 11.6-14.6 [facility] Comment on above: Performed By: #### L 100.0100, L501.2300 ####[facility] [address] [place], [address] Hematocrit (Bld) [Volume fraction] 34.3 % Low 37-47 [facility] Comment on above: Performed By: #### L 100.0100, L501.2300 ####[facility] [address] [place], [address] Hemoglobin (Bld) [Mass/Vol] 11.6 g/dL Low 12.0-15.0 [facility] Comment on above: Performed By: #### L 100.0100, L501.2300 ####[facility] [address] [place], [address] IG% 0.400 Normal 0.0-0.9 [facility] Comment on above: Result Comment: IG% - Immature Granulocytes (promyelocytes, myelocytes andmetamyelocytes) > 1% indicates that a LEFT SHIFT is Present. Performed By: #### L 100.0100, L501.2300 ####[facility] [address] [place], [address] Lymphocytes/100 WBC (Bld) 12.5 % Low 19-41 [facility] Comment on above: Performed By: #### L 100.0100, L501.2300 ####[facility] [address] [place], [address] MCH (RBC) [Entitic mass] 36.4 pg High 27.0-32.0 [facility] Comment on above: Performed By: #### L 100.0100, L501.2300 ####[facility] [address] [place], [address] MCHC (RBC) [Mass/Vol] 33.8 g/dL Normal 32-36 [facility] Comment on above: Performed By: #### L 100.0100, L501.2300 ####[facility] [address] [place], [address] MCV (RBC) [Entitic vol] 107.5 fL High 81-99 [facility] Comment on above: Performed By: #### L 100.0100, L501.2300 ####[facility] [address] [place], [address] Monocytes/100 WBC (Bld) 8.0 % Normal 0-10 [facility] Comment on above: Performed By: #### L 100.0100, L501.2300 ####[facility] [address] [place], [address] Neutrophils/100 WBC (Bld) 78.0 % High 47-70 [facility] Comment on above: Performed By: #### L 100.0100, L501.2300 ####[facility] [address] [place], [address] Nucleated RBC (Bld) [#/Vol] 0 10*3/uL Normal 0-5 [facility] Comment on above: Performed By: #### L 100.0100, L501.2300 ####[facility] [address] [place], [address] Platelet mean volume (Bld) [Entitic vol] 10.3 fL Normal 6.2-12.0 [facility] Comment on above: Performed By: #### L 100.0100, L501.2300 ####[facility] [address] [place], [address] Platelets (Bld) [#/Vol] 119 10*3/uL Low 150-450 [facility] Comment on above: Performed By: #### L 100.0100, L501.2300 ####[facility] [address] [place], [address] RBC (Bld) [#/Vol] 3.19 10*6/uL Low 4.2-5.4 [facility] Comment on above: Performed By: #### L 100.0100, L501.2300 ####[facility] [address] [place], [address] RDW SD 48.2 fl High 35.1-43.9 [facility] Comment on above: Performed By: #### L 100.0100, L501.2300 ####[facility] [address] [place], [address] WBC (Bld) [#/Vol] 7.6 10*3/uL Normal 4.4-11.0 [facility] Comment on above: Performed By: #### L 100.0100, L501.2300 ####[facility] [address] [place], [address] Lipaseon 04-28-2025 Lipase [Catalytic activity/Vol] 533 U/L High 13-75 [facility] Comment on above: Result Comment: Lucie schultz note:LIPASE revised reference range effective 23.New Lipase methodology. Expected to produce lower valuesthan the previous assay method.NEW Reference Range: 13 - 75 U/L Performed By: #### L 500.2500, L500.3400, L501.5200, L501.2450 ####[facility] [address] [place], [address] Lipase measurementOrdered By : Canelo Myers on 04-28-2025 Lipase [Catalytic activity/Vol] 533 U/L High 13-75 [facility] Comment on above: Please note:LIPASE r evised reference range effective 23. New Lipase methodology. Expected to produce lower values than the previous assay method. NEW Reference Range: 13 - 75 U/L Liver Profileon 04-28-2025 Albumin [Mass/Vol] 3.7 g/dL Normal 3.5-5.0 [facility] Comment on above: Performed By: #### L 500.2500, L500.3400, L501.5200, L501.2450 ####[facility] [address] [place], [address] ALK PHOS 158 U/L High 35-104 [facility] Comment on above: Performed By: #### L 500.2500, L500.3400, L501.5200, L501.2450 ####[facility] [address] [place], [address] ALT [Catalytic activity/Vol] 72 U/L High <=34 [facility] Comment on above: Performed By: #### L 500.2500, L500.3400, L501.5200, L501.2450 ####[facility] [address] [place], [address] AST [Catalytic activity/Vol] 265 U/L High <=31 [facility] Comment on above: Performed By: #### L 500.2500, L500.3400, L501.5200, L501.2450 ####[facility] [address] [place], [address] Bilirubin [Mass/Vol] 1.26 mg/dL Normal 0.00-1.30 [facility] Comment on above: Performed By: #### L 500.2500, L500.3400, L501.5200, L501.2450 ####[facility] [address] [place], [address] Bilirubin.direct [Mass/Vol] 0.79 mg/dL High 0.00-0.30 [facility] Comment on above: Performed By: #### L 500.2500, L500.3400, L501.5200, L501.2450 ####[facility] [address] [place], [address] Globulin (S) [Mass/Vol] 2.6 g/dL Normal 2.2-4.2 [facility] Comment on above: Performed By: #### L 500.2500, L500.3400, L501.5200, L501.2450 ####[facility] [address] [place], [address] T PROT 6.3 g/dL Normal 5.9-8.4 [facility] Comment on above: Performed By: #### L 500.2500, L500.3400, L501.5200, L501.2450 ####[facility] [address] [place], [address] Magnesiumon 04-28-2025 Magnesium [Mass/Vol] 1.5 mg/dL Normal 1.5-2.2 [facility] Comment on above: Performed By: #### L 500.2500, L500.3400, L501.5200, L501.2450 ####[facility] [address] [place], [address] Phosphoruson 04-28-2025 Phosphate [Mass/Vol] 1.5 mg/dL Low 2.7-4.5 [facility] Comment on above: Performed By: #### L 100.0100, L501.2300 ####[facility] [address] [place], [address] Basic Metabolic Profile (BMP )on 04-27-2025 BUN/CRE 9.1 RATIO Low 10-20 [facility] Comment on above: Performed By: #### L 300.3900, L500.3400, L501.2300, L501.5200, L501.9520, L500.4050, L500.2500, L100.0100 ####[facility] [address] [place], [address] Calcium [Mass/Vol] 8.0 mg/dL Normal 7.6-11.0 [facility] Comment on above: Performed By: #### L 300.3900, L500.3400, L501.2300, L501.5200, L501.9520, L500.4050, L500.2500, L100.0100 ####[facility] [address] [place], [address] Chloride [Moles/Vol] 96 mmol/L Low 98-108 [facility] Comment on above: Performed By: #### L 300.3900, L500.3400, L501.2300, L501.5200, L501.9520, L500.4050, L500.2500, L100.0100 ####[facility] [address] [place], [address] CO2 [Moles/Vol] 16.0 mmol/L Low 21.0-32.0 [facility] Comment on above: Performed By: #### L 300.3900, L500.3400, L501.2300, L501.5200, L501.9520, L500.4050, L500.2500, L100.0100 ####[facility] [address] [place], [address] Creatinine [Mass/Vol] 0.69 mg/dL Low 0.70-1.20 [facility] Comment on above: Performed By: #### L 300.3900, L500.3400, L501.2300, L501.5200, L501.9520, L500.4050, L500.2500, L100.0100 ####[facility] [address] [place], [address] ECRCL 86.10 ml/min Normal 50-250 [facility] Comment on above: Performed By: #### L 300.3900, L500.3400, L501.2300, L501.5200, L501.9520, L500.4050, L500.2500, L100.0100 ####[facility] [address] [place], [address] GAP 22 High 5-15 [facility] Comment on above: Performed By: #### L 300.3900, L500.3400, L501.2300, L501.5200, L501.9520, L500.4050, L500.2500, L100.0100 ####[facility] [address] [place], [address] GFR/1.73 sq M.predicted among non-blacks MDRD (S/P/Bld) [Vol rate/Area] 107 mL/min/{1.73_m2} Normal >60 [facility] Comment on above: Result Comment: mL/m in/1.73m2 CKD-EPI Creatinine Equation (2020) Performed By: #### L 300.3900, L500.3400, L501.2300, L501.5200, L501.9520, L500.4050, L500.2500, L100.0100 ####[facility] [address] [place], [address] Glucose [Mass/Vol] 132 mg/dL High 70-99 [facility] Comment on above: Performed By: #### L 300.3900, L500.3400, L501.2300, L501.5200, L501.9520, L500.4050, L500.2500, L100.0100 ####[facility] [address] [place], [address] Potassium [Moles/Vol] 3.8 mmol/L Normal 3.3-5.1 [facility] Comment on above: Performed By: #### L 300.3900, L500.3400, L501.2300, L501.5200, L501.9520, L500.4050, L500.2500, L100.0100 ####[facility] [address] [place], [address] Sodium [Moles/Vol] 134 mmol/L Normal 133-145 [facility] Comment on above: Performed By: #### L 300.3900, L500.3400, L501.2300, L501.5200, L501.9520, L500.4050, L500.2500, L100.0100 ####[facility] [address] [place], [address] Urea nitrogen [Mass/Vol] 6 mg/dL Normal 4-19 [facility] Comment on above: Performed By: #### L 300.3900, L500.3400, L501.2300, L501.5200, L501.9520, L500.4050, L500.2500, L100.0100 ####[facility] [address] [place], [address] Bedside Glucoseon 04-27-2025 FINGERSTICK GLU 153 mg/dL High 74-106 [facility] Comment on above: Result Comment: CHAUNCEY GEMENT OF PATIENT CARE PER NURSING PROTOCOL Performed By: #### L 501.080 ####[facility] [address] [place], [address] FINGERSTICK GLU 149 mg/dL High 74-106 [facility] Comment on above: Result Comment: CHAUNCEY GEMENT OF PATIENT CARE PER NURSING PROTOCOL Performed By: #### L 501.080 ####[facility] [address] [place], [address] FINGERSTICK GLU 194 mg/dL High 74-106 [facility] Comment on above: Result Comment: CHAUNCEY GEMENT OF PATIENT CARE PER NURSING PROTOCOL Performed By: #### L 501.080 ####[facility] [address] [place], [address] FINGERSTICK GLU 107 mg/dL High 74-106 [facility] Comment on above: Result Comment: CHAUNCEY GEMENT OF PATIENT CARE PER NURSING PROTOCOL Performed By: #### L 501.080 ####[facility] [address] [place], [address] CBC W/Diff, Automatedon 05-3 0-2024 Absolute Lymph 0.83 X10 3/uL Normal 0.83-4.51 [facility] Comment on above: Performed By: #### L 300.3900, L500.3400, L501.2300, L501.5200, L501.9520, L500.4050, L500.2500, L100.0100 ####[facility] [address] [place], [address] Absolute Neut 9.6 X10 3/uL High 2.0-7.7 [facility] Comment on above: Performed By: #### L 300.3900, L500.3400, L501.2300, L501.5200, L501.9520, L500.4050, L500.2500, L100.0100 ####[facility] [address] [place], [address] Basophils/100 WBC (Bld) 0.3 % Normal 0-1 [facility] Comment on above: Performed By: #### L 300.3900, L500.3400, L501.2300, L501.5200, L501.9520, L500.4050, L500.2500, L100.0100 ####[facility] [address] [place], [address] Eosinophils/100 WBC (Bld) 0.1 % Normal 0-5 [facility] Comment on above: Performed By: #### L 300.3900, L500.3400, L501.2300, L501.5200, L501.9520, L500.4050, L500.2500, L100.0100 ####[facility] [address] [place], [address] Erythrocyte distribution width (RBC) [Ratio] 12.7 % Normal 11.6-14.6 [facility] Comment on above: Performed By: #### L 300.3900, L500.3400, L501.2300, L501.5200, L501.9520, L500.4050, L500.2500, L100.0100 ####[facility] [address] [place], [address]( Hematocrit (Bld) [Volume fraction] 39.2 % Normal 37-47 [facility] Comment on above: Performed By: #### L 300.3900, L500.3400, L501.2300, L501.5200, L501.9520, L500.4050, L500.2500, L100.0100 ####[facility] [address] [place], [address] Hemoglobin (Bld) [Mass/Vol] 13.5 g/dL Normal 12.0-15.0 [facility] Comment on above: Performed By: #### L 300.3900, L500.3400, L501.2300, L501.5200, L501.9520, L500.4050, L500.2500, L100.0100 ####[facility] [address] [place], [address] IG% 0.400 Normal 0.0-0.9 [facility] Comment on above: Result Comment: IG% - Immature Granulocytes (promyelocytes, myelocytes andmetamyelocytes) > 1% indicates that a LEFT SHIFT is Present. Performed By: #### L 300.3900, L500.3400, L501.2300, L501.5200, L501.9520, L500.4050, L500.2500, L100.0100 ####[facility] [address] [place], [address] Lymphocytes/100 WBC (Bld) 7.3 % Low 19-41 [facility] Comment on above: Performed By: #### L 300.3900, L500.3400, L501.2300, L501.5200, L501.9520, L500.4050, L500.2500, L100.0100 ####[facility] [address] [place], [address] MCH (RBC) [Entitic mass] 36.6 pg High 27.0-32.0 [facility] Comment on above: Performed By: #### L 300.3900, L500.3400, L501.2300, L501.5200, L501.9520, L500.4050, L500.2500, L100.0100 ####[facility] [address] [place], [address] MCHC (RBC) [Mass/Vol] 34.4 g/dL Normal 32-36 [facility] Comment on above: Performed By: #### L 300.3900, L500.3400, L501.2300, L501.5200, L501.9520, L500.4050, L500.2500, L100.0100 ####[facility] [address] [place], [address] MCV (RBC) [Entitic vol] 106.2 fL High 81-99 [facility] Comment on above: Performed By: #### L 300.3900, L500.3400, L501.2300, L501.5200, L501.9520, L500.4050, L500.2500, L100.0100 ####[facility] [address] [place], [address] Monocytes/100 WBC (Bld) 7.9 % Normal 0-10 [facility] [facility] Comment on above: Performed By: #### L 300.3900, L500.3400, L501.2300, L501.5200, L501.9520, L500.4050, L500.2500, L100.0100 ####[facility] [address] [place], [address] Neutrophils/100 WBC (Bld) 84.0 % High 47-70 [facility] Comment on above: Performed By: #### L 300.3900, L500.3400, L501.2300, L501.5200, L501.9520, L500.4050, L500.2500, L100.0100 ####[facility] [address] [place], [address] Nucleated RBC (Bld) [#/Vol] 0 10*3/uL Normal 0-5 [facility] Comment on above: Performed By: #### L 300.3900, L500.3400, L501.2300, L501.5200, L501.9520, L500.4050, L500.2500, L100.0100 ####[facility] [address] [place], [address] Platelet mean volume (Bld) [Entitic vol] 9.7 fL Normal 6.2-12.0 [facility] Comment on above: Performed By: #### L 300.3900, L500.3400, L501.2300, L501.5200, L501.9520, L500.4050, L500.2500, L100.0100 ####[facility] [address] [place], [address] Platelets (Bld) [#/Vol] 153 10*3/uL Normal 150-450 [facility] Comment on above: Performed By: #### L 300.3900, L500.3400, L501.2300, L501.5200, L501.9520, L500.4050, L500.2500, L100.0100 ####[facility] [address] [place], [place], [phone]([phone] RBC (Bld) [#/Vol] 3.69 10*6/uL Low 4.2-5.4 [facility] Comment on above: Performed By: #### L 300.3900, L500.3400, L501.2300, L501.5200, L501.9520, L500.4050, L500.2500, L100.0100 ####[facility] [address] [place], [place], [phone] RDW SD 49.7 fl High 35.1-43.9 [facility] Comment on above: Performed By: #### L 300.3900, L500.3400, L501.2300, L501.5200, L501.9520, L500.4050, L500.2500, L100.0100 ####[facility] [address] [place], [place], [phone]([phone] WBC (Bld) [#/Vol] 11.4 10*3/uL High 4.4-11.0 [facility] Comment on above: Performed By: #### L 300.3900, L500.3400, L501.2300, L501.5200, L501.9520, L500.4050, L500.2500, L100.0100 ####[facility] [address] [place], [address] Comprehensive Metabolic Prof pron 04-27-2025 Albumin/Globulin [Mass ratio] 1.4 {ratio} Normal 0.9-2.4 [facility] Comment on above: Performed By: #### L 300.3900, L500.3400, L501.2300, L501.5200, L501.9520, L500.4050, L500.2500, L100.0100 ####[facility] [address] [place], [place], [phone] Hemoglobin A1con 04-27-2025 HbA1c (Bld) [Mass fraction] 5.6 % Normal <=5.6 [facility] Comment on above: Result Comment: Norm al < 5.7 % Prediabetic 5.7 - 6.4 % Diabetic >or= 6.5 % Please note range changes. Performed By: #### L 501.3374 ####[facility] [address] [place], [place], [phone] Hemoglobin A1c percentageOrd ered By: Julius Moncada on 04-27-2025 HbA1c (Bld) [Mass fraction] 5.6 % <5.7 [facility] Comment on above: Normal < 5.7 % Predi abetic 5.7 - 6.4 % Diabetic >or= 6.5 % Please note range changes. International normalized rat io (INR) calculationOrdered By: Julius Moncada on 04-27-2025 INR Coag (Bld) [Relative time] 1.0 {INR} [facility] Liver Profileon 04-27-2025 Albumin [Mass/Vol] 3.9 g/dL Normal 3.5-5.0 [facility] Comment on above: Performed By: #### L 300.3900, L500.3400, L501.2300, L501.5200, L501.9520, L500.4050, L500.2500, L100.0100 ####[facility] [address] [place], [place], [phone] ALK PHOS 98 U/L Normal 35-104 [facility] Comment on above: Performed By: #### L 300.3900, L500.3400, L501.2300, L501.5200, L501.9520, L500.4050, L500.2500, L100.0100 ####[facility] [address] [place], [place], [phone] ALT [Catalytic activity/Vol] 46 U/L High <=34 [facility] Comment on above: Performed By: #### L 300.3900, L500.3400, L501.2300, L501.5200, L501.9520, L500.4050, L500.2500, L100.0100 ####[facility] [address] [place], [address] AST [Catalytic activity/Vol] 96 U/L High <=31 [facility] Comment on above: Performed By: #### L 300.3900, L500.3400, L501.2300, L501.5200, L501.9520, L500.4050, L500.2500, L100.0100 ####[facility] [address] [place], [address] Bilirubin [Mass/Vol] 0.99 mg/dL Normal 0.00-1.30 [facility] Comment on above: Performed By: #### L 300.3900, L500.3400, L501.2300, L501.5200, L501.9520, L500.4050, L500.2500, L100.0100 ####[facility] [address] [place], [address] Bilirubin.direct [Mass/Vol] 0.54 mg/dL High 0.00-0.30 [facility] Comment on above: Performed By: #### L 300.3900, L500.3400, L501.2300, L501.5200, L501.9520, L500.4050, L500.2500, L100.0100 ####[facility] [address] [place], [address] Globulin (S) [Mass/Vol] 2.7 g/dL Normal 2.2-4.2 [facility] Comment on above: Performed By: #### L 300.3900, L500.3400, L501.2300, L501.5200, L501.9520, L500.4050, L500.2500, L100.0100 ####[facility] [address] [place], [address] T PROT 6.6 g/dL Normal 5.9-8.4 [facility] Comment on above: Performed By: #### L 300.3900, L500.3400, L501.2300, L501.5200, L501.9520, L500.4050, L500.2500, L100.0100 ####[facility] [address] [place], [address] Magnesiumon 04-27-2025 Magnesium [Mass/Vol] 0.9 mg/dL Invalid Interpretation Code 1.5-2.2 [facility] Comment on above: Result Comment: Crit ical Result(s) Called at:04/27/2025-02:13 by: AlEximias Pharmaceutical CorporationRead.??Results read back by same. Performed By: #### L 300.3900, L500.3400, L501.2300, L501.5200, L501.9520, L500.4050, L500.2500, L100.0100 ####[facility] [address] [place], [place], [phone] Phosphoruson 04-27-2025 Phosphate [Mass/Vol] 3.3 mg/dL Normal 2.7-4.5 [facility] Comment on above: Performed By: #### L 300.3900, L500.3400, L501.2300, L501.5200, L501.9520, L500.4050, L500.2500, L100.0100 ####[facility] [address] [place], [place], [phone] Prothrombin Time w/INRon INR Coag (PPP) [Relative time] 1.0 {INR} Normal [facility] Comment on above: Performed By: #### L 300.3900, L500.3400, L501.2300, L501.5200, L501.9520, L500.4050, L500.2500, L100.0100 ####[facility] [address] [place], [address] PT Coag (PPP) [Time] 12.9 s Normal 11.7-14.9 [facility] Comment on above: Performed By: #### L 300.3900, L500.3400, L501.2300, L501.5200, L501.9520, L500.4050, L500.2500, L100.0100 ####[facility] [address] [place], [address] Prothrombin timeOrdered By: Julius Moncada on 04-27-2025 PT Coag (PPP) [Time] 12.9 s 11.7-14.9 [facility] TSH DL <= 0.005 mIU/L QnOrde red By: Julius Moncada on 04-27-2025 TSH Qn 4.010 uIU/mL 0.300-4.200 [facility] Comment on above: Previous reported re sult: 3.960 uIU/mLEdited by: BRITTNEY on 04/27/25:0236 AMENDED REPORT 04/27/25235 TSH previously reported as: 3.960 uIU/mL Thyroid Stim Hormone (TSH)on 04-27-2025 TSH 4.010 uIU/mL Normal 0.300-4.200 [facility] Comment on above: Result Comment: AMENDED REPORT 04/27/25235 TSH previously reported as: 3.960 uIU/mL Performed By: #### L 300.3900, L500.3400, L501.2300, L501.5200, L501.9520, L500.4050, L500.2500, L100.0100 ####[facility] [address] [place], [place], [phone] Abdomen/Pelvis W IV Cont ONL Yon 04-26-2025 Abdomen/Pelvis W IV Cont ONLY Normal [facility] Absolute lymphocyte countOrd ered By: Humphrey Garcia on 04-26-2025 Lymphocytes Auto (Unsp spec) [#/Vol] 0.76 10*3/uL Low 0.83-4.51 [facility] Absolute neutrophil countOrd ered By: Humphrey Garcia on 04-26-2025 Neutrophils (Bld) [#/Vol] 8.8 10*3/uL High 2.0-7.7 [facility] Alcohol, Blood (Medical)-Ser umon 04-26-2025 SERUM ETOH < 10.1 Normal <=10.0 [facility] Comment on above: Result Comment: This test is for medical purposes only. The legaldefinition of intoxication varies according to local law. Performed By: #### L 501.9100 ####[facility] [address] [place], [address] Anion gap in Serum or Plasma Ordered By: Humphrey Garcia on 04-26-2025 Anion gap [Moles/Vol] 36 mmol/L High 5-15 [facility] Automated lymphocyte count a s percentage of total leukocytesOrdered By: Humphrey Garcia on 04-26-2025 Lymphocytes/100 WBC Auto (Unsp spec) 7.3 % Low 19-41 [facility] BUN/creatinine ratioOrdered By: Humphrey Garcia on 04-26-2025 Urea nitrogen/Creatinine [Mass ratio] 11.2 mg/mg 10-20 [facility] Basophil percentageOrdered B y: Humphrey Garcia on 04-26-2025 Basophils/100 WBC (Bld) 0.4 % 0-1 [facility] Bilirubin Test strip Ql (U)O rdered By: Humphrey Garcia on 04-26-2025 Bilirubin Ql (U) Negative Negative [facility] Bilirubin, totalOrdered By: Humphrey Garcia on 04-26-2025 Bilirubin [Mass/Vol] 1.42 mg/dL High 0.00-1.30 [facility] CBC W/Diff, Automatedon 03-30 Absolute Lymph 0.76 X10 3/uL Low 0.83-4.51 [facility] Comment on above: Performed By: #### L 501.2450, L500.4050, L100.0100 ####[facility] [address] [place], [address] Absolute Neut 8.8 X10 3/uL High 2.0-7.7 [facility] Comment on above: Performed By: #### L 501.2450, L500.4050, L100.0100 ####[facility] [address] [place], [address] Basophils/100 WBC (Bld) 0.4 % Normal 0-1 [facility] Comment on above: Performed By: #### L 501.2450, L500.4050, L100.0100 ####[facility] [address] [place], [address] Eosinophils/100 WBC (Bld) 0.0 % Normal 0-5 [facility] Comment on above: Performed By: #### L 501.2450, L500.4050, L100.0100 ####[facility] [address] [place], [address] Erythrocyte distribution width (RBC) [Ratio] 12.8 % Normal 11.6-14.6 [facility] Comment on above: Performed By: #### L 501.2450, L500.4050, L100.0100 ####[facility] [address] [place], [address] Hematocrit (Bld) [Volume fraction] 42.8 % Normal 37-47 [facility] Comment on above: Performed By: #### L 501.2450, L500.4050, L100.0100 ####[facility] [address] [place], [address] Hemoglobin (Bld) [Mass/Vol] 14.8 g/dL Normal 12.0-15.0 [facility] Comment on above: Performed By: #### L 501.2450, L500.4050, L100.0100 ####[facility] [address] [place], [address] IG% 0.700 Normal 0.0-0.9 [facility] Comment on above: Result Comment: IG% - Immature Granulocytes (promyelocytes, myelocytes andmetamyelocytes) > 1% indicates that a LEFT SHIFT is Present. Performed By: #### L 501.2450, L500.4050, L100.0100 ####[facility] [address] [place], [address] Lymphocytes/100 WBC (Bld) 7.3 % Low 19-41 [facility] Comment on above: Performed By: #### L 501.2450, L500.4050, L100.0100 ####[facility] [address] [place], [address] MCH (RBC) [Entitic mass] 36.2 pg High 27.0-32.0 [facility] Comment on above: Performed By: #### L 501.2450, L500.4050, L100.0100 ####[facility] [address] [place], [address] MCHC (RBC) [Mass/Vol] 34.6 g/dL Normal 32-36 [facility] Comment on above: Performed By: #### L 501.2450, L500.4050, L100.0100 ####[facility] [address] [place], [address] MCV (RBC) [Entitic vol] 104.6 fL High 81-99 [facility] Comment on above: Performed By: #### L 501.2450, L500.4050, L100.0100 ####[facility] [address] [place], [address] Monocytes/100 WBC (Bld) 7.0 % Normal 0-10 [facility] Comment on above: Performed By: #### L 501.2450, L500.4050, L100.0100 ####[facility] [address] [place], [address] Neutrophils/100 WBC (Bld) 84.6 % High 47-70 [facility] Comment on above: Performed By: #### L 501.2450, L500.4050, L100.0100 ####[facility] [address] [place], [address] Nucleated RBC (Bld) [#/Vol] 0.2 10*3/uL Normal 0-5 [facility] Comment on above: Performed By: #### L 501.2450, L500.4050, L100.0100 ####[facility] [address] [place], [address] Platelet mean volume (Bld) [Entitic vol] 10.0 fL Normal 6.2-12.0 [facility] Comment on above: Performed By: #### L 501.2450, L500.4050, L100.0100 ####[facility] [address] [place], [address] Platelets (Bld) [#/Vol] 175 10*3/uL Normal 150-450 [facility] Comment on above: Performed By: #### L 501.2450, L500.4050, L100.0100 ####[facility] [address] [place], [address] RBC (Bld) [#/Vol] 4.09 10*6/uL Low 4.2-5.4 [facility] Comment on above: Performed By: #### L 501.2450, L500.4050, L100.0100 ####[facility] [address] [place], [address] RDW SD 49.4 fl High 35.1-43.9 [facility] Comment on above: Performed By: #### L 501.2450, L500.4050, L100.0100 ####[facility] [address] [place], [address] WBC (Bld) [#/Vol] 10.4 10*3/uL Normal 4.4-11.0 [facility] Comment on above: Performed By: #### L 501.2450, L500.4050, L100.0100 ####[facility] [address] [place], [address] Carbon dioxide, total [Moles /volume] in Central venous bloodOrdered By: Humphrey Garcia on 04-26-2025 CO2 [Moles/Vol] 16.4 mmol/L Low 21.0-32.0 [facility] Chloride assayOrdered By: Edison Garcia on 04-26-2025 Chloride [Moles/Vol] 87 mmol/L Low 98-108 [facility] Comprehensive Metabolic Prof ilon 04-26-2025 Albumin [Mass/Vol] 4.5 g/dL Normal 3.5-5.0 [facility] Comment on above: Performed By: #### L 501.2450, L500.4050, L100.0100 ####[facility] [address] [place], [address] Albumin/Globulin [Mass ratio] 1.4 {ratio} Normal 0.9-2.4 [facility] Comment on above: Performed By: #### L 501.2450, L500.4050, L100.0100 ####[facility] [address] [place], [address] ALK PHOS 122 U/L High 35-104 [facility] Comment on above: Performed By: #### L 501.2450, L500.4050, L100.0100 ####[facility] [address] [place], [address] ALT [Catalytic activity/Vol] 62 U/L High <=34 [facility] Comment on above: Performed By: #### L 501.2450, L500.4050, L100.0100 ####[facility] [address] [place], [address] AST [Catalytic activity/Vol] 127 U/L High <=31 [facility] Comment on above: Performed By: #### L 501.2450, L500.4050, L100.0100 ####[facility] [address] [place], [address] Bilirubin [Mass/Vol] 1.42 mg/dL High 0.00-1.30 [facility] Comment on above: Performed By: #### L 501.2450, L500.4050, L100.0100 ####[facility] [address] [place], [address] BUN/CRE 11.2 RATIO Normal 10-20 [facility] Comment on above: Performed By: #### L 501.2450, L500.4050, L100.0100 ####[facility] [address] [place], [address] Calcium [Mass/Vol] 8.9 mg/dL Normal 7.6-11.0 [facility] Comment on above: Performed By: #### L 501.2450, L500.4050, L100.0100 ####[facility] [address] [place], [address] Chloride [Moles/Vol] 87 mmol/L Low 98-108 [facility] Comment on above: Performed By: #### L 501.2450, L500.4050, L100.0100 ####[facility] [address] [place], [address] CO2 [Moles/Vol] 16.4 mmol/L Low 21.0-32.0 [facility] Comment on above: Performed By: #### L 501.2450, L500.4050, L100.0100 ####[facility] [address] [place], [address] Creatinine [Mass/Vol] 0.70 mg/dL Normal 0.70-1.20 [facility] Comment on above: Performed By: #### L 501.2450, L500.4050, L100.0100 ####[facility] [address] [place], [address] ECRCL 84.87 ml/min Normal 50-250 [facility] Comment on above: Performed By: #### L 501.2450, L500.4050, L100.0100 ####[facility] [address] [place], [address] GAP 36 High 5-15 [facility] Comment on above: Performed By: #### L 501.2450, L500.4050, L100.0100 ####[facility] [address] [place], [address] GFR/1.73 sq M.predicted among non-blacks MDRD (S/P/Bld) [Vol rate/Area] 107 mL/min/{1.73_m2} Normal >60 [facility] Comment on above: Result Comment: mL/m in/1.73m2 CKD-EPI Creatinine Equation (2020) Performed By: #### L 501.2450, L500.4050, L100.0100 ####[facility] [address] [place], [address] Globulin (S) [Mass/Vol] 3.2 g/dL Normal 2.2-4.2 [facility] Comment on above: Performed By: #### L 501.2450, L500.4050, L100.0100 ####[facility] [address] [place], [address] Glucose [Mass/Vol] 156 mg/dL High 70-99 [facility] Comment on above: Performed By: #### L 501.2450, L500.4050, L100.0100 ####[facility] [address] [place], [address] Potassium [Moles/Vol] 2.8 mmol/L Low 3.3-5.1 [facility] Comment on above: Performed By: #### L 501.2450, L500.4050, L100.0100 ####[facility] [address] [place], [address] Sodium [Moles/Vol] 139 mmol/L Normal 133-145 [facility] Comment on above: Performed By: #### L 501.2450, L500.4050, L100.0100 ####[facility] [address] [place], [address] T PROT 7.7 g/dL Normal 5.9-8.4 [facility] Comment on above: Performed By: #### L 501.2450, L500.4050, L100.0100 ####[facility] [address] [place], [address] Urea nitrogen [Mass/Vol] 8 mg/dL Normal 4-19 [facility] Comment on above: Performed By: #### L 501.2450, L500.4050, L100.0100 ####[facility] [address] [place], [address] Emergency Department Summary on 04-26-2025 Emergency Department Summary Normal [facility] Eosinophil percentageOrdered By: Humphrey Garcia on 04-26-2025 Eosinophils/100 WBC (Bld) 0.0 % 0-5 [facility] Erythrocyte distribution wid th ratioOrdered By: Humphrey Garcia on 04-26-2025 Erythrocyte distribution width (RBC) [Ratio] 12.8 % 11.6-14.6 [facility] Erythrocyte distribution wid th standard deviationOrdered By: Humphrey Garcia on 04-26-2025 Erythrocyte distribution width (RBC) [Ratio] 49.4 fl High 35.1-43.9 [facility] Glomerular filtration rate ( GFR) estimation/1.73 sq m using serum, plasma, or whole bOrdered By: Humphrey Garcia on 04-26-2025 GFR/1.73 sq M.predicted among non-blacks MDRD (S/P/Bld) [Vol rate/Area] 107 mL/min/{1.73_m2} >60 [facility] Comment on above: mL/min/1.73m2 CKD-EP I Creatinine Equation (2020) H AND P Exam - [facility] 04-26-2025 H&P Exam - Hospitalist Normal [facility] Hematocrit Auto (Bld) [Volum e fraction]Ordered By: Humphrey Garcia on 04-26-2025 Hematocrit (Bld) [Volume fraction] 42.8 % 37-47 [facility] Hemoglobin measurementOrdere d By: Humphrey Garcia on 04-26-2025 Hemoglobin (Bld) [Mass/Vol] 14.8 g/dL 12.0-15.0 [facility] Immature granulocytes/100 WB C Auto (Bld)Ordered By: Humphrey Garcia on 04-26-2025 Immature granulocytes/100 WBC (Bld) 0.700 % 0.0-0.9 [facility] Comment on above: IG% - Immature Granu locytes (promyelocytes, myelocytes and metamyelocytes) > 1% indicates that a LEFT SHIFT is Present. Ketones Test strip Ql (U)Ord ered By: Humphrey Garcia on 04-26-2025 Ketones Ql (U) 150 mg/dl Negative [facility] Comment on above: CRITICAL VALUE *HCRI TICAL VALUE CALLED TO VSXTBN53/29/25 1638 Angelita Herzog.RESULTS READ BACK BY SAME. Laboratory - Chemistry and C hemistry - challengeOrdered By: Humphrey Garcia on 04-26-2025 AST [Catalytic activity/Vol] 127 U/L High <32 [facility] Lipaseon 04-26-2025 Lipase [Catalytic activity/Vol] 1045 U/L High 13-75 [facility] Comment on above: Result Comment: Plea se note:LIPASE revised reference range effective 23.New Lipase methodology. Expected to produce lower valuesthan the previous assay method.NEW Reference Range: 13 - 75 U/L Performed By: #### L 501.2450, L500.4050, L100.0100 ####[facility] [address] [place], [address] Lipase measurementOrdered By : Humphrey Garcia on 04-26-2025 Lipase [Catalytic activity/Vol] 1045 U/L High 13-75 [facility] Comment on above: Please note:LIPASE r evised reference range effective 23. New Lipase methodology. Expected to produce lower values than the previous assay method. NEW Reference Range: 13 - 75 U/L MCV (mean corpuscular volume ) determinationOrdered By: Humphrey Garcia on 04-26-2025 MCV (RBC) [Entitic vol] 104.6 fL High 81-99 [facility] Mean corpuscular hemoglobin (MCH) determinationOrdered By: Humphrey Garcia on 04-26-2025 MCH (RBC) [Entitic mass] 36.2 pg High 27.0-32.0 [facility] Mean corpuscular hemoglobin concentration (MCHC) determinationOrdered By: Humphrey Garcia on 04-26-2025 MCHC (RBC) [Mass/Vol] 34.6 g/dL 32-36 [facility] Mean platelet volume determi nationOrdered By: Humphrey Garcia on 04-26-2025 Platelet mean volume (Bld) [Entitic vol] 10.0 fL 6.2-12.0 [facility] Microscopic analysis of urin e for red blood cells (RBC)Ordered By: Humphrey Garcia on 04-26-2025 Microscopic analysis of urine for red blood cells (RBC) 0-5 SEEN /hpf 0-5 [facility] Monocyte percentageOrdered B y: Humphrey Garcia on 04-26-2025 Monocytes/100 WBC (Bld) 7.0 % 0-10 [facility] Mucus LM Ql (Urine sed)Order ed By: Humphrey Garcia on 04-26-2025 Mucus Ql (Urine sed) 0 SEEN /hpf [facility] Neutrophil percentageOrdered By: Humphrey Garcia on 04-26-2025 Neutrophils/100 WBC (Bld) 84.6 % High 47-70 [facility] Nitrite Test strip Ql (U)Ord ered By: Humphrey Garcia on 04-26-2025 Nitrite Ql (U) Negative Negative [facility] Nucleated red blood cell per centageOrdered By: Humphrey Garcia on 04-26-2025 Nucleated RBC/100 WBC (Bld) [Ratio] 0.2 % 0-5 [facility] Platelet countOrdered By: Edison Garcia on 04-26-2025 Platelets (Bld) [#/Vol] 175 10*3/uL 150-450 [facility] Potassium measurement (mass/ volume)Ordered By: Humphrey Garcia on 04-26-2025 Potassium (Unsp spec) [Mass/Vol] 2.8 mmol/L Low 3.3-5.1 [facility] Protein Test strip Ql (U)Ord ered By: Humphrey Garcia on 04-26-2025 Protein Ql (U) 30 mg/dl High Negative [facility] Prothrombin Time w/INRon INR Coag (PPP) [Relative time] 1.0 {INR} Normal [facility] Comment on above: Performed By: #### L 300.3900 ####[facility] [address] [place], [place], [id number] PT Coag (PPP) [Time] 13.3 s Normal 11.7-14.9 [facility] Comment on above: Performed By: #### L 300.3900 ####[facility] [address] [place], [place], [address] RBC Auto (Bld) [#/Vol]Ordere d By: Humphrey Garcia on 04-26-2025 RBC (Bld) [#/Vol] 4.09 10*6/uL Low 4.2-5.4 [facility] Serum creatinine measurement (mass/volume)Ordered By: Humphrey Garcia on 04-26-2025 Creatinine [Mass/Vol] 0.70 mg/dL 0.70-1.20 [facility] Serum globulin measurementOr dered By: Humphrey Garcia on 05-29-2025 Globulin (S) [Mass/Vol] 3.2 g/dL 2.2-4.2 [facility] Serum glucose measurement (m ass/volume)Ordered By: Humphrey Garcia on 04-26-2025 Glucose [Mass/Vol] 156 mg/dL High 70-99 [facility] Serum or plasma alanine wilkerson otransferase (ALT) measurementOrdered By: Humphrey Garcia on 04-26-2025 ALT [Catalytic activity/Vol] 62 U/L High <35 [facility] Serum or plasma albumin alphonso urement (mass/volume)Ordered By: Humphrey Garcia on 04-26-2025 Albumin [Mass/Vol] 4.5 g/dL 3.5-5.0 [facility] Serum or plasma albumin/glob ulin mass ratioOrdered By: Humphrey Garcia on 04-26-2025 Albumin/Globulin [Mass ratio] 1.4 {ratio} 0.9-2.4 [facility] Serum or plasma alkaline trinity sphatase measurementOrdered By: Humphrey Garcia on 04-26-2025 ALP [Catalytic activity/Vol] 122 U/L High 35-104 [facility] Serum or plasma calcium alphonso urement (mass/volume)Ordered By: Humphrey Garcia on 04-26-2025 Calcium [Mass/Vol] 8.9 mg/dL 7.6-11.0 [facility] Serum or plasma ethanol alphonso urement (mass/volume)Ordered By: Humphrey Garcia on 04-26-2025 Ethanol [Mass/Vol] mg/dL <10.1 [facility] Comment on above: This test is for med ical purposes only. The legal definition of intoxication varies according to local law. Serum or plasma urea nitroge n measurement (mass/volume)Ordered By: Humphrey Garcia on 04-26-2025 Urea nitrogen [Mass/Vol] 8 mg/dL 4-19 [facility] Sodium levelOrdered By: Scout Garcia on 04-26-2025 Sodium [Moles/Vol] 139 mmol/L 133-145 [facility] Squamous epithelial cells de tection in urine sediment by light microscopyOrdered By: Humphrey Garcia on 04-26-2025 Epithelial cells.squamous LM Ql (Urine sed) 0-5 SEEN /hpf 5-10 [facility] Total proteinOrdered By: Carin Garcia on 04-26-2025 Protein [Mass/Vol] 7.7 g/dL 5.9-8.4 [facility] Urinalysis, Completeon 04-26 EPI,SQUAMOUS 0-5 SEEN Normal 5-10 [facility] Comment on above: Order Comment: CLEAN CATCH Performed By: #### L 400.0001 ####[facility] [address] [place], [address] RBC 0-5 SEEN Normal 0-5 [facility] Comment on above: Order Comment: CLEAN CATCH Performed By: #### L 400.0001 ####[facility] [address] [place], [address] BACTERIA 0 SEEN Normal None Seen [facility] Comment on above: Order Comment: CLEAN CATCH Performed By: #### L 400.0001 ####[facility] [address] [place], [address] Mucus Ql (Urine sed) 0 SEEN Normal [facility] Comment on above: Order Comment: CLEAN CATCH Performed By: #### L 400.0001 ####[facility] [address] [place], [address] WBC 0 SEEN Normal 0-5 [facility] Comment on above: Order Comment: CLEAN CATCH Performed By: #### L 400.0001 ####[facility] [address] [place], [address] Urine clarityOrdered By: Carin Garcia on 04-26-2025 Clarity (U) Clear Clear [facility] Urine color determinationOrd ered By: Humphrey Garcia on 04-26-2025 Color (U) Yellow Yellow [facility] Urine glucose detectionOrder ed By: Humphrey Garcia on 04-26-2025 Glucose Ql (U) 1000 mg/dl High Normal [facility] Urine leukocyte esterase det ection by dipstickOrdered By: Humphrey Garcia on 04-26-2025 Leukocyte esterase Test strip Ql (U) Negative Negative [facility] Urine pHOrdered By: Humphrey Juarez nder on 04-26-2025 pH (U) 6.0 [pH] 5.0 - 8.0 [facility] Urine sediment bacteria coun t by microscopy (number/high power field)Ordered By: Humphrey Garcia on 04-26-2025 Bacteria LM.HPF (Urine sed) [#/Area] 0 /[HPF] None Seen [facility] Urine specific gravity measu rementOrdered By: Humphrey Garcia on 04-26-2025 Specific gravity (U) [Rel density] 1.010 1.002-1.030 [facility] Urine urobilinogen measureme ntOrdered By: Humphrey Garcia on 04-26-2025 Urobilinogen Ql (U) 1 mg/dl High Normal [facility] White blood cell (WBC) count Ordered By: Humphrey Garcia on 04-26-2025 WBC (Bld) [#/Vol] 10.4 10*3/uL 4.4-11.0 [facility] White blood cell countOrdere d By: Humphrey Garcia on 04-26-2025 White blood cell count 0 SEEN /hpf 0-5 [facility] 12 Lead EKGon 04-11-2025 12 Lead EKG Normal [facility] Absolute lymphocyte countOrd ered By: Francisco Colon on 04-11-2025 Lymphocytes Auto (Unsp spec) [#/Vol] 2.10 10*3/uL 0.83-4.51 [facility] Absolute neutrophil countOrd ered By: Francisco Colon on 04-11-2025 Neutrophils (Bld) [#/Vol] 2.1 10*3/uL 2.0-7.7 [facility] Alcohol, Blood (Medical)-Ser umon 04-11-2025 SERUM ETOH 328.0 mg/dL Invalid Interpretation Code <=10.0 [facility] Comment on above: Result Comment: Crit ical Result(s) Called at:2346 by: LUISITO VELASQUEZN TO LELANDAL??Results read back by same.This test is for medical purposes only. The legaldefinition of intoxication varies according to local law. Performed By: #### L 501.4021, L100.0100, L500.2500, L501.9100, L501.2450 ####[facility] [address] [place], [address] Anion gap in Serum or Plasma Ordered By: Francisco Colon on 04-11-2025 Anion gap [Moles/Vol] 16 mmol/L High 5-15 [facility] Automated lymphocyte count a s percentage of total leukocytesOrdered By: Francisco Colon on 04-11-2025 Lymphocytes/100 WBC Auto (Unsp spec) 42.0 % High [facility] BUN/creatinine ratioOrdered By: Francisco Colon on 04-11-2025 Urea nitrogen/Creatinine [Mass ratio] 20.2 mg/mg High 09-17 [facility] Basic Metabolic Profile (BMP )on 04-11-2025 BUN/CRE 20.2 RATIO High 09-17 [facility] Comment on above: Performed By: #### L 501.4021, L100.0100, L500.2500, L501.9100, L501.2450 ####[facility] [address] [place], [address] Calcium [Mass/Vol] 8.8 mg/dL Normal 7.6-11.0 [facility] Comment on above: Performed By: #### L 501.4021, L100.0100, L500.2500, L501.9100, L501.2450 ####[facility] [address] [place], [address] Chloride [Moles/Vol] 100 mmol/L Normal 98-108 [facility] Comment on above: Performed By: #### L 501.4021, L100.0100, L500.2500, L501.9100, L501.2450 ####[facility] [address] [place], [address] CO2 [Moles/Vol] 28.2 mmol/L Normal 21.0-32.0 [facility] Comment on above: Performed By: #### L 501.4021, L100.0100, L500.2500, L501.9100, L501.2450 ####[facility] [address] [place], [address] Creatinine [Mass/Vol] 0.53 mg/dL Low 0.70-1.20 [facility] Comment on above: Performed By: #### L 501.4021, L100.0100, L500.2500, L501.9100, L501.2450 ####[facility] [address] [place], [address] ECRCL 112.09 ml/min Normal 50-250 [facility] Comment on above: Performed By: #### L 501.4021, L100.0100, L500.2500, L501.9100, L501.2450 ####[facility] [address] [place], [address] GAP 16 High 5-15 [facility] Comment on above: Performed By: #### L 501.4021, L100.0100, L500.2500, L501.9100, L501.2450 ####[facility] [address] [place], [address] GFR/1.73 sq M.predicted among non-blacks MDRD (S/P/Bld) [Vol rate/Area] 114 mL/min/{1.73_m2} Normal >60 [facility] Comment on above: Result Comment: mL/m in/1.73m2 CKD-EPI Creatinine Equation (2020) Performed By: #### L 501.4021, L100.0100, L500.2500, L501.9100, L501.2450 ####[facility] [address] [place], [address] Glucose [Mass/Vol] 131 mg/dL High 70-99 [facility] Comment on above: Performed By: #### L 501.4021, L100.0100, L500.2500, L501.9100, L501.2450 ####[facility] [address] [place], [address] Potassium [Moles/Vol] 3.2 mmol/L Low 3.3-5.1 [facility] Comment on above: Performed By: #### L 501.4021, L100.0100, L500.2500, L501.9100, L501.2450 ####[facility] [address] [place], [address] Sodium [Moles/Vol] 144 mmol/L Normal 133-145 [facility] Comment on above: Performed By: #### L 501.4021, L100.0100, L500.2500, L501.9100, L501.2450 ####[facility] [address] [place], [address] Urea nitrogen [Mass/Vol] 11 mg/dL Normal 4-19 [facility] Comment on above: Performed By: #### L 501.4021, L100.0100, L500.2500, L501.9100, L501.2450 ####[facility] [address] [place], [address] Basophil percentageOrdered B y: Francisco Colon on 04-11-2025 Basophils/100 WBC (Bld) 1.2 % High 0-1 [facility] Bilirubin Test strip Ql (U)O rdered By: Francisco Colon on 04-11-2025 Bilirubin Ql (U) Negative Negative [facility] CBC W/Diff, Automatedon 03-29 Absolute Lymph 2.10 X10 3/uL Normal 0.83-4.51 [facility] Comment on above: Performed By: #### L 501.4021, L100.0100, L500.2500, L501.9100, L501.2450 ####[facility] [address] [place], [address] Absolute Neut 2.1 X10 3/uL Normal 2.0-7.7 [facility] Comment on above: Performed By: #### L 501.4021, L100.0100, L500.2500, L501.9100, L501.2450 ####[facility] [address] [place], [address] Basophils/100 WBC (Bld) 1.2 % High 0-1 [facility] Comment on above: Performed By: #### L 501.4021, L100.0100, L500.2500, L501.9100, L501.2450 ####[facility] [address] [place], [address] Eosinophils/100 WBC (Bld) 0.8 % Normal 0-5 [facility] Comment on above: Performed By: #### L 501.4021, L100.0100, L500.2500, L501.9100, L501.2450 ####[facility] [address] [place], [address] Erythrocyte distribution width (RBC) [Ratio] 13.5 % Normal 11.6-14.6 [facility] Comment on above: Performed By: #### L 501.4021, L100.0100, L500.2500, L501.9100, L501.2450 ####[facility] [address] [place], [address] Hematocrit (Bld) [Volume fraction] 37.7 % Normal 37-47 [facility] Comment on above: Performed By: #### L 501.4021, L100.0100, L500.2500, L501.9100, L501.2450 ####[facility] [address] [place], [address] Hemoglobin (Bld) [Mass/Vol] 13.5 g/dL Normal 12.0-15.0 [facility] Comment on above: Performed By: #### L 501.4021, L100.0100, L500.2500, L501.9100, L501.2450 ####[facility] [address] [place], [address] IG% 0.200 Normal 0.0-0.9 [facility] Comment on above: Result Comment: IG% - Immature Granulocytes (promyelocytes, myelocytes andmetamyelocytes) > 1% indicates that a LEFT SHIFT is Present. Performed By: #### L 501.4021, L100.0100, L500.2500, L501.9100, L501.2450 ####[facility] [address] [place], [address] Lymphocytes/100 WBC (Bld) 42.0 % High 19-41 [facility] Comment on above: Performed By: #### L 501.4021, L100.0100, L500.2500, L501.9100, L501.2450 ####[facility] [address] [place], [address] MCH (RBC) [Entitic mass] 37.4 pg High 27.0-32.0 [facility] Comment on above: Performed By: #### L 501.4021, L100.0100, L500.2500, L501.9100, L501.2450 ####[facility] [address] [place], [address] MCHC (RBC) [Mass/Vol] 35.8 g/dL Normal 32-36 [facility] Comment on above: Performed By: #### L 501.4021, L100.0100, L500.2500, L501.9100, L501.2450 ####[facility] [address] [place], [address] MCV (RBC) [Entitic vol] 104.4 fL High 81-99 [facility] Comment on above: Performed By: #### L 501.4021, L100.0100, L500.2500, L501.9100, L501.2450 ####[facility] [address] [place], [address] Monocytes/100 WBC (Bld) 13.2 % High 0-10 [facility] Comment on above: Performed By: #### L 501.4021, L100.0100, L500.2500, L501.9100, L501.2450 ####[facility] [address] [place], [address] Neutrophils/100 WBC (Bld) 42.6 % Low 47-70 [facility] Comment on above: Performed By: #### L 501.4021, L100.0100, L500.2500, L501.9100, L501.2450 ####[facility] [address] [place], [address] Nucleated RBC (Bld) [#/Vol] 0.4 10*3/uL Normal 0-5 [facility] Comment on above: Performed By: #### L 501.4021, L100.0100, L500.2500, L501.9100, L501.2450 ####[facility] [address] [place], [address] Platelet mean volume (Bld) [Entitic vol] 9.6 fL Normal 6.2-12.0 [facility] Comment on above: Performed By: #### L 501.4021, L100.0100, L500.2500, L501.9100, L501.2450 ####[facility] [address] [place], [address] Platelets (Bld) [#/Vol] 246 10*3/uL Normal 150-450 [facility] Comment on above: Performed By: #### L 501.4021, L100.0100, L500.2500, L501.9100, L501.2450 ####[facility] [address] [place], [address] RBC (Bld) [#/Vol] 3.61 10*6/uL Low 4.2-5.4 [facility] Comment on above: Performed By: #### L 501.4021, L100.0100, L500.2500, L501.9100, L501.2450 ####[facility] [address] [place], [address] RDW SD 51.4 fl High 35.1-43.9 [facility] Comment on above: Performed By: #### L 501.4021, L100.0100, L500.2500, L501.9100, L501.2450 ####[facility] [address] [place], [address] WBC (Bld) [#/Vol] 5.0 10*3/uL Normal 4.4-11.0 [facility] Comment on above: Performed By: #### L 501.4021, L100.0100, L500.2500, L501.9100, L501.2450 ####[facility] [address] [place], [address] Carbon dioxide, total [Moles /volume] in Central venous bloodOrdered By: Francisco Colon on 04-11-2025 CO2 [Moles/Vol] 28.2 mmol/L 21.0-32.0 [facility] Chest PA and Lateralon 04-11 Chest PA and Lateral Normal [facility] Chloride assayOrdered By: Peyman Colon on 04-11-2025 Chloride [Moles/Vol] 100 mmol/L 98-108 [facility] Emergency Department Summary on 04-11-2025 Emergency Department Summary Normal [facility] Eosinophil percentageOrdered By: Francisco Colon on 04-11-2025 Eosinophils/100 WBC (Bld) 0.8 % 0-5 [facility] Erythrocyte distribution wid th ratioOrdered By: Francisco Colon on 04-11-2025 Erythrocyte distribution width (RBC) [Ratio] 13.5 % 11.6-14.6 [facility] Erythrocyte distribution wid th standard deviationOrdered By: Francisco Colon on 04-11-2025 Erythrocyte distribution width (RBC) [Ratio] 51.4 fl High 35.1-43.9 [facility] Glomerular filtration rate ( GFR) estimation/1.73 sq m using serum, plasma, or whole bOrdered By: Francisco Colon on 04-11-2025 GFR/1.73 sq M.predicted among non-blacks MDRD (S/P/Bld) [Vol rate/Area] 114 mL/min/{1.73_m2} >60 [facility] Comment on above: mL/min/1.73m2 CKD-EP I Creatinine Equation (2020) Hematocrit Auto (Bld) [Volum e fraction]Ordered By: Francisco Colon on 04-11-2025 Hematocrit (Bld) [Volume fraction] 37.7 % 37-47 [facility] Hemoglobin measurementOrdere d By: Francisco Colon on 04-11-2025 Hemoglobin (Bld) [Mass/Vol] 13.5 g/dL 12.0-15.0 [facility] Immature granulocytes/100 WB C Auto (Bld)Ordered By: Francisco Colon on 04-11-2025 Immature granulocytes/100 WBC (Bld) 0.200 % 0.0-0.9 [facility] Comment on above: IG% - Immature Granu locytes (promyelocytes, myelocytes and metamyelocytes) > 1% indicates that a LEFT SHIFT is Present. Ketones Test strip Ql (U)Ord ered By: Francisco Colon on 04-11-2025 Ketones Ql (U) Negative Negative [facility] L501.4021on 04-11-2025 Trop T High Sen < 6 Normal <=14 [facility] Comment on above: Performed By: #### L 501.4021, L100.0100, L500.2500, L501.9100, L501.2450 ####[facility] [address] [place], [address] Lipaseon 04-11-2025 Lipase [Catalytic activity/Vol] 70 U/L Normal 13-75 [facility] Comment on above: Result Comment: Pledaysi se note:LIPASE revised reference range effective 23.New Lipase methodology. Expected to produce lower valuesthan the previous assay method.NEW Reference Range: 13 - 75 U/L Performed By: #### L 501.4021, L100.0100, L500.2500, L501.9100, L501.2450 ####[facility] [address] [place], [address] Lipase measurementOrdered By : Francisco Colon on 04-11-2025 Lipase [Catalytic activity/Vol] 70 U/L 13-75 [facility] Comment on above: Please note:LIPASE r evised reference range effective 23. New Lipase methodology. Expected to produce lower values than the previous assay method. NEW Reference Range: 13 - 75 U/L MCV (mean corpuscular volume ) determinationOrdered By: Francisco Colon on 04-11-2025 MCV (RBC) [Entitic vol] 104.4 fL High 81-99 [facility] Mean corpuscular hemoglobin (MCH) determinationOrdered By: Francisco Colon on 04-11-2025 MCH (RBC) [Entitic mass] 37.4 pg High 27.0-32.0 [facility] Mean corpuscular hemoglobin concentration (MCHC) determinationOrdered By: Farncisco Colon on 04-11-2025 MCHC (RBC) [Mass/Vol] 35.8 g/dL 32-36 [facility] Mean platelet volume determi nationOrdered By: Francisco Colon on 04-11-2025 Platelet mean volume (Bld) [Entitic vol] 9.6 fL 6.2-12.0 [facility] Microscopic analysis of urin e for red blood cells (RBC)Ordered By: Francisco Colon on 04-11-2025 Microscopic analysis of urine for red blood cells (RBC) 0 SEEN /hpf 0-5 [facility] Monocyte percentageOrdered B y: Francisco Colon on 04-11-2025 Monocytes/100 WBC (Bld) 13.2 % High 0-10 [facility] Mucus LM Ql (Urine sed)Order ed By: Francisco Colon on 04-11-2025 Mucus Ql (Urine sed) 0 SEEN /hpf [facility] Neutrophil percentageOrdered By: Francisco Colon on 04-11-2025 Neutrophils/100 WBC (Bld) 42.6 % Low 47-70 [facility] Nitrite Test strip Ql (U)Ord ered By: Francisco Colon on 04-11-2025 Nitrite Ql (U) Negative Negative [facility] Nucleated red blood cell per centageOrdered By: Francisco Colon on 04-11-2025 Nucleated RBC/100 WBC (Bld) [Ratio] 0.4 % 0-5 [facility] Platelet countOrdered By: Peyman Colon on 04-11-2025 Platelets (Bld) [#/Vol] 246 10*3/uL 150-450 [facility] Potassium measurement (mass/ volume)Ordered By: Francisco Colon on 04-11-2025 Potassium (Unsp spec) [Mass/Vol] 3.2 mmol/L Low 3.3-5.1 [facility] Protein Test strip Ql (U)Ord ered By: Francisco Colon on 04-11-2025 Protein Ql (U) 15 mg/dl High Negative [facility] RBC Auto (Bld) [#/Vol]Ordere d By: Francisco Colon on 04-11-2025 RBC (Bld) [#/Vol] 3.61 10*6/uL Low 4.2-5.4 [facility] Serum creatinine measurement (mass/volume)Ordered By: Francisco Colon on 04-11-2025 Creatinine [Mass/Vol] 0.53 mg/dL Low 0.70-1.20 [facility] Serum glucose measurement (m ass/volume)Ordered By: Francisco Colon on 04-11-2025 Glucose [Mass/Vol] 131 mg/dL High 70-99 [facility] Serum or plasma calcium alphonso urement (mass/volume)Ordered By: Francisco Colon on 04-11-2025 Calcium [Mass/Vol] 8.8 mg/dL 7.6-11.0 [facility] Serum or plasma ethanol alphonso urement (mass/volume)Ordered By: Francisco Colon on 04-11-2025 Ethanol [Mass/Vol] 328.0 mg/dL High <10.1 [facility] Comment on above: Critical Result(s) C alled at:3376 by: LUISITO LUJAN Results read back by same.This test is for medical purposes only. The legal definition of intoxication varies according to local law. Serum or plasma urea nitroge n measurement (mass/volume)Ordered By: Francisco Colon on 04-11-2025 Urea nitrogen [Mass/Vol] 11 mg/dL 4-19 [facility] Sodium levelOrdered By: Francisco Colon on 04-11-2025 Sodium [Moles/Vol] 144 mmol/L 133-145 [facility] Squamous epithelial cells de tection in urine sediment by light microscopyOrdered By: Francisco Colon on 04-11-2025 Epithelial cells.squamous LM Ql (Urine sed) 0 SEEN /hpf - [facility] Troponin T.cardiac [Mass/vol ume] in Serum or Plasma by High sensitivity methodOrdered By: Francisco Colon on 04-11-2025 Troponin T.cardiac High sensitivity method [Mass/Vol] < 6 ng/L <14 [facility] Urinalysis, Completeon 04-11 BACTERIA 0 SEEN Normal None Seen [facility] Comment on above: Order Comment: [place] CTOR TO SPECIFY Performed By: #### L 400.0001 ####[facility] [address] [facility] [address] EPI,SQUAMOUS 0 SEEN Normal - [facility] Comment on above: Order Comment: [place] CTOR TO SPECIFY Performed By: #### L 400.0001 ####[facility] [address] [place], [address] Mucus Ql (Urine sed) 0 SEEN Normal [facility] Comment on above: Order Comment: [place] CTOR TO SPECIFY Performed By: #### L 400.0001 ####[facility] [address] [place], [address] RBC 0 SEEN Normal 0-5 [facility] Comment on above: Order Comment: [place] CTOR TO SPECIFY Performed By: #### L 400.0001 ####[facility] [address] [place], [address] WBC 0 SEEN Normal 0-5 [facility] Comment on above: Order Comment: [place] CTOR TO SPECIFY Performed By: #### L 400.0001 ####[facility] [address] [place], [address] Urine clarityOrdered By: Rommel Colon on 04-11-2025 Clarity (U) Clear Clear [facility] Urine color determinationOrd ered By: Francisco Colon on 04-11-2025 Color (U) Yellow Yellow [facility] Urine glucose detectionOrder ed By: Francisco Colon on 04-11-2025 Glucose Ql (U) Normal mg/dl Normal [facility] Urine leukocyte esterase det ection by dipstickOrdered By: Francisco Colon on 04-11-2025 Leukocyte esterase Test strip Ql (U) Negative Negative [facility] Urine pHOrdered By: Francisco Rosenberg ghbecky on 04-11-2025 pH (U) 7.0 [pH] 5.0 - 8.0 [facility] Urine sediment bacteria coun t by microscopy (number/high power field)Ordered By: Francisco Colon on 04-11-2025 Bacteria LM.HPF (Urine sed) [#/Area] 0 /[HPF] None Seen [facility] Urine specific gravity measu rementOrdered By: Francisco Colon on 04-11-2025 Specific gravity (U) [Rel density] 1.010 1.002-1.030 [facility] Urine urobilinogen measureme ntOrdered By: Francisco Colon on 04-11-2025 Urobilinogen Ql (U) Normal mg/dl Normal [facility] White blood cell (WBC) count Ordered By: Francisco Colon on 04-11-2025 WBC (Bld) [#/Vol] 5.0 10*3/uL 4.4-11.0 [facility] White blood cell countOrdere d By: Francisco Colon on 04-11-2025 White blood cell count 0 SEEN /hpf 0-5 [facility] 12 Lead EKGon 04-04-2025 12 Lead EKG Normal [facility] Abdomen/Pelvis W IV Cont ONL Yon 04-04-2025 Abdomen/Pelvis W IV Cont ONLY Normal [facility] Absolute lymphocyte countOrd ered By: ED PROVIDER on 04-04-2025 Lymphocytes Auto (Unsp spec) [#/Vol] 1.23 10*3/uL 0.83-4.51 [facility] Absolute neutrophil countOrd ered By: ED PROVIDER on 04-04-2025 Neutrophils (Bld) [#/Vol] 6.8 10*3/uL 2.0-7.7 [facility] Anion gap in Serum or Plasma Ordered By: Imani Knight on 04-04-2025 Anion gap [Moles/Vol] 18 mmol/L High 5-15 [facility] Automated lymphocyte count a s percentage of total leukocytesOrdered By: ED PROVIDER on 04-04-2025 Lymphocytes/100 WBC Auto (Unsp spec) 14.0 % Low 19-41 [facility] BUN/creatinine ratioOrdered By: Imani Knight on 04-04-2025 Urea nitrogen/Creatinine [Mass ratio] 8.7 mg/mg Low 10-20 [facility] Basic Metabolic Profile (BMP )on 04-04-2025 BUN/CRE 8.7 RATIO Low 10- [facility] Comment on above: Performed By: #### L 501.4021, L100.0100, L500.2500 ####[facility] [address] [place], [address] Calcium [Mass/Vol] 8.4 mg/dL Normal 7.6-11.0 [facility] Comment on above: Performed By: #### L 501.4021, L100.0100, L500.2500 ####[facility] [address] [place], [address] Chloride [Moles/Vol] 94 mmol/L Low 98-108 [facility] Comment on above: Performed By: #### L 501.4021, L100.0100, L500.2500 ####[facility] [address] [place], [address] CO2 [Moles/Vol] 27.3 mmol/L Normal 21.0-32.0 [facility] Comment on above: Performed By: #### L 501.4021, L100.0100, L500.2500 ####[facility] [address] [place], [address] Creatinine [Mass/Vol] 0.55 mg/dL Low 0.70-1.20 [facility] Comment on above: Performed By: #### L 501.4021, L100.0100, L500.2500 ####[facility] [address] [place], [address] GAP 18 High 5-15 [facility] Comment on above: Performed By: #### L 501.4021, L100.0100, L500.2500 ####[facility] [address] [place], [address] GFR/1.73 sq M.predicted among non-blacks MDRD (S/P/Bld) [Vol rate/Area] 113 mL/min/{1.73_m2} Normal >60 [facility] Comment on above: Result Comment: mL/m in/1.73m2 CKD-EPI Creatinine Equation (2020) Performed By: #### L 501.4021, L100.0100, L500.2500 ####[facility] [address] [place], [address] Glucose [Mass/Vol] 131 mg/dL High 70-99 [facility] Comment on above: Performed By: #### L 501.4021, L100.0100, L500.2500 ####[facility] [address] [place], [address] Potassium [Moles/Vol] 2.9 mmol/L Low 3.3-5.1 [facility] Comment on above: Performed By: #### L 501.4021, L100.0100, L500.2500 ####[facility] [address] [place], [address] Sodium [Moles/Vol] 139 mmol/L Normal 133-145 [facility] Comment on above: Performed By: #### L 501.4021, L100.0100, L500.2500 ####[facility] [address] [place], [address] Urea nitrogen [Mass/Vol] 5 mg/dL Normal 4-19 [facility] Comment on above: Performed By: #### L 501.4021, L100.0100, L500.2500 ####[facility] [address] [place], [address] Basophil percentageOrdered B y: ED PROVIDER on 04-04-2025 Basophils/100 WBC (Bld) 0.7 % 0-1 [facility] Bilirubin directOrdered By: Imani Knight on 04-04-2025 Bilirubin.direct [Mass/Vol] 0.67 mg/dL High 0.00-0.30 [facility] Bilirubin, totalOrdered By: Imani Knight on 04-04-2025 Bilirubin [Mass/Vol] 1.26 mg/dL 0.00-1.30 [facility] CBC W/Diff, Automatedon Absolute Lymph 1.23 X10 3/uL Normal 0.83-4.51 [facility] Comment on above: Performed By: #### L 501.4021, L100.0100, L500.2500 ####[facility] [address] [place], [address] Absolute Neut 6.8 X10 3/uL Normal 2.0-7.7 [facility] Comment on above: Performed By: #### L 501.4021, L100.0100, L500.2500 ####[facility] [address] [place], [address] Basophils/100 WBC (Bld) 0.7 % Normal 0-1 [facility] Comment on above: Performed By: #### L 501.4021, L100.0100, L500.2500 ####[facility] [address] [place], [address] Eosinophils/100 WBC (Bld) 0.2 % Normal 0-5 [facility] Comment on above: Performed By: #### L 501.4021, L100.0100, L500.2500 ####[facility] [address] [place], [address] Erythrocyte distribution width (RBC) [Ratio] 13.5 % Normal 11.6-14.6 [facility] Comment on above: Performed By: #### L 501.4021, L100.0100, L500.2500 ####[facility] [address] [place], [address] Hematocrit (Bld) [Volume fraction] 40.3 % Normal 37-47 [facility] Comment on above: Performed By: #### L 501.4021, L100.0100, L500.2500 ####[facility] [address] [place], [address] Hemoglobin (Bld) [Mass/Vol] 14.3 g/dL Normal 12.0-15.0 [facility] Comment on above: Performed By: #### L 501.4021, L100.0100, L500.2500 ####[facility] [address] [place], [address] IG% 0.300 Normal 0.0-0.9 [facility] Comment on above: Result Comment: IG% - Immature Granulocytes (promyelocytes, myelocytes andmetamyelocytes) > 1% indicates that a LEFT SHIFT is Present. Performed By: #### L 501.4021, L100.0100, L500.2500 ####[facility] [address] [place], [address] Lymphocytes/100 WBC (Bld) 14.0 % Low 19-41 [facility] Comment on above: Performed By: #### L 501.4021, L100.0100, L500.2500 ####[facility] [address] [place], [address] MCH (RBC) [Entitic mass] 35.4 pg High 27.0-32.0 [facility] Comment on above: Performed By: #### L 501.4021, L100.0100, L500.2500 ####[facility] [address] [place], [address] MCHC (RBC) [Mass/Vol] 35.5 g/dL Normal 32-36 [facility] Comment on above: Performed By: #### L 501.4021, L100.0100, L500.2500 ####[facility] [address] [place], [address] MCV (RBC) [Entitic vol] 99.8 fL High 81-99 [facility] Comment on above: Performed By: #### L 501.4021, L100.0100, L500.2500 ####[facility] [address] [place], [address] Monocytes/100 WBC (Bld) 7.8 % Normal 0-10 [facility] Comment on above: Performed By: #### L 501.4021, L100.0100, L500.2500 ####[facility] [address] [place], [address] Neutrophils/100 WBC (Bld) 77.0 % High 47-70 [facility] Comment on above: Performed By: #### L 501.4021, L100.0100, L500.2500 ####[facility] [address] [place], [address] Nucleated RBC (Bld) [#/Vol] 0.2 10*3/uL Normal 0-5 [facility] Comment on above: Performed By: #### L 501.4021, L100.0100, L500.2500 ####[facility] [address] [place], [address] Platelet mean volume (Bld) [Entitic vol] 10.0 fL Normal 6.2-12.0 [facility] Comment on above: Performed By: #### L 501.4021, L100.0100, L500.2500 ####[facility] [address] [place], [address] Platelets (Bld) [#/Vol] 186 10*3/uL Normal 150-450 [facility] Comment on above: Performed By: #### L 501.4021, L100.0100, L500.2500 ####[facility] [address] [place], [address] RBC (Bld) [#/Vol] 4.04 10*6/uL Low 4.2-5.4 [facility] Comment on above: Performed By: #### L 501.4021, L100.0100, L500.2500 ####[facility] [address] [place], [address] RDW SD 50.3 fl High 35.1-43.9 [facility] Comment on above: Performed By: #### L 501.4021, L100.0100, L500.2500 ####[facility] [address] [place], [address] WBC (Bld) [#/Vol] 8.8 10*3/uL Normal 4.4-11.0 [facility] Comment on above: Performed By: #### L 501.4021, L100.0100, L500.2500 ####[facility] [address] [place], [address] Carbon dioxide, total [Moles /volume] in Central venous bloodOrdered By: Imani Knight on 04-04-2025 CO2 [Moles/Vol] 27.3 mmol/L 21.0-32.0 [facility] Chest 1 View (Portable)on Chest 1 View (Portable) Normal [facility] Chloride assayOrdered By: Nash Knight on 04-04-2025 Chloride [Moles/Vol] 94 mmol/L Low 98-108 [facility] Emergency Department Summary on 04-04-2025 Emergency Department Summary Normal [facility] Eosinophil percentageOrdered By: ED PROVIDER on 04-04-2025 Eosinophils/100 WBC (Bld) 0.2 % 0-5 [facility] Erythrocyte distribution wid th ratioOrdered By: ED PROVIDER on 04-04-2025 Erythrocyte distribution width (RBC) [Ratio] 13.5 % 11.6-14.6 [facility] Erythrocyte distribution wid th standard deviationOrdered By: ED PROVIDER on 04-04-2025 Erythrocyte distribution width (RBC) [Ratio] 50.3 fl High 35.1-43.9 [facility] Glomerular filtration rate ( GFR) estimation/1.73 sq m using serum, plasma, or whole bOrdered By: Imani Knight on 04-04-2025 GFR/1.73 sq M.predicted among non-blacks MDRD (S/P/Bld) [Vol rate/Area] 113 mL/min/{1.73_m2} >60 [facility] Comment on above: mL/min/1.73m2 CKD-EP I Creatinine Equation (2020) Hematocrit Auto (Bld) [Volum e fraction]Ordered By: ED PROVIDER on 04-04-2025 Hematocrit (Bld) [Volume fraction] 40.3 % 37-47 [facility] Hemoglobin measurementOrdere d By: ED PROVIDER on 04-04-2025 Hemoglobin (Bld) [Mass/Vol] 14.3 g/dL 12.0-15.0 [facility] Immature granulocytes/100 WB C Auto (Bld)Ordered By: ED PROVIDER on 04-04-2025 Immature granulocytes/100 WBC (Bld) 0.300 % 0.0-0.9 [facility] Comment on above: IG% - Immature Granu locytes (promyelocytes, myelocytes and metamyelocytes) > 1% indicates that a LEFT SHIFT is Present. L499.0042on 04-04-2025 Trop T High Sen < 6 Normal <=14 [facility] Comment on above: Performed By: #### L 499.0042 ####[facility] [address] [place], [address] L499.0043on 04-04-2025 Trop T High Sen Normal <=14 [facility] Comment on above: Result Comment: CHUY ENT DISCHARGED Performed By: #### L 499.0043 ####[facility] [address] [place], [address] L501.4021on 04-04-2025 Trop T High Sen < 6 Normal <=14 [facility] Comment on above: Performed By: #### L 501.4021, L100.0100, L500.2500 ####[facility] [address] [place], [address] Laboratory - Chemistry and C hemistry - challengeOrdered By: Imani Knight on 04-04-2025 AST [Catalytic activity/Vol] 75 U/L High <32 [facility] Lipaseon 04-04-2025 Lipase [Catalytic activity/Vol] 26 U/L Normal 13-75 [facility] Comment on above: Result Comment: Plea se note:LIPASE revised reference range effective 23.New Lipase methodology. Expected to produce lower valuesthan the previous assay method.NEW Reference Range: 13 - 75 U/L Performed By: #### L 500.3400, L501.5200, L501.2450 ####[facility] [address] [place], [address] Lipase measurementOrdered By : Imani Knight on 04-04-2025 Lipase [Catalytic activity/Vol] 26 U/L 13-75 [facility] Comment on above: Please note:LIPASE r evised reference range effective 23. New Lipase methodology. Expected to produce lower values than the previous assay method. NEW Reference Range: 13 - 75 U/L Liver Profileon 04-04-2025 Albumin [Mass/Vol] 4.1 g/dL Normal 3.5-5.0 [facility] Comment on above: Performed By: #### L 500.3400, L501.5200, L501.2450 ####[facility] [address] [place], [address] ALK PHOS 91 U/L Normal 35-104 [facility] Comment on above: Performed By: #### L 500.3400, L501.5200, L501.2450 ####[facility] [address] [place], [address] ALT [Catalytic activity/Vol] 44 U/L High <=34 [facility] Comment on above: Performed By: #### L 500.3400, L501.5200, L501.2450 ####[facility] [address] [place], [address] AST [Catalytic activity/Vol] 75 U/L High <=31 [facility] Comment on above: Performed By: #### L 500.3400, L501.5200, L501.2450 ####[facility] [address] [place], [address] Bilirubin [Mass/Vol] 1.26 mg/dL Normal 0.00-1.30 [facility] Comment on above: Performed By: #### L 500.3400, L501.5200, L501.2450 ####[facility] [address] [place], [address] Bilirubin.direct [Mass/Vol] 0.67 mg/dL High 0.00-0.30 [facility] Comment on above: Performed By: #### L 500.3400, L501.5200, L501.2450 ####[facility] [address] [place], [address] Globulin (S) [Mass/Vol] 3.3 g/dL Normal 2.2-4.2 [facility] Comment on above: Performed By: #### L 500.3400, L501.5200, L501.2450 ####[facility] [address] [place], [address] T PROT 7.3 g/dL Normal 5.9-8.4 [facility] Comment on above: Performed By: #### L 500.3400, L501.5200, L501.2450 ####[facility] [address] [place], [address] MCV (mean corpuscular volume ) determinationOrdered By: ED PROVIDER on 04-04-2025 MCV (RBC) [Entitic vol] 99.8 fL High 81-99 [facility] Magnesiumon 04-04-2025 Magnesium [Mass/Vol] 0.6 mg/dL Invalid Interpretation Code 1.5-2.2 [facility] Comment on above: Result Comment: Crit ical Result(s) Called at: 04/04/2025-12: by: Francesco to Meredith Fairchild.??Results read back by same. Performed By: #### L 500.3400, L501.5200, L501.2450 ####[facility] [address] [place], [address] Magnesium measurement (mass/ volume)Ordered By: Imani Knight on 04-04-2025 Magnesium (Unsp spec) [Mass/Vol] 0.6 mg/dL Low 1.5-2.2 [facility] Comment on above: Critical Result(s) C alled at: 04/04/2025-: by: Ru Fairchild. Results read back by same. Mean corpuscular hemoglobin (MCH) determinationOrdered By: ED PROVIDER on 04-04-2025 MCH (RBC) [Entitic mass] 35.4 pg High 27.0-32.0 [facility] Mean corpuscular hemoglobin concentration (MCHC) determinationOrdered By: ED PROVIDER on 04-04-2025 MCHC (RBC) [Mass/Vol] 35.5 g/dL 32-36 [facility] Mean platelet volume determi nationOrdered By: ED PROVIDER on 04-04-2025 Platelet mean volume (Bld) [Entitic vol] 10.0 fL 6.2-12.0 [facility] Monocyte percentageOrdered B y: ED PROVIDER on 04-04-2025 Monocytes/100 WBC (Bld) 7.8 % 0-10 [facility] Neutrophil percentageOrdered By: ED PROVIDER on 04-04-2025 Neutrophils/100 WBC (Bld) 77.0 % High 47-70 [facility] No Panel InformationOrdered By: Imani Knight on 04-04-2025 75 U/L High <32 [facility] Nucleated red blood cell per centageOrdered By: ED PROVIDER on 04-04-2025 Nucleated RBC/100 WBC (Bld) [Ratio] 0.2 % 0-5 [facility] Platelet countOrdered By: ED PROVIDER on 04-04-2025 Platelets (Bld) [#/Vol] 186 10*3/uL 150-450 [facility] Potassium measurement (mass/ volume)Ordered By: Imani Knight on 04-04-2025 Potassium (Unsp spec) [Mass/Vol] 2.9 mmol/L Low 3.3-5.1 [facility] RBC Auto (Bld) [#/Vol]Ordere d By: ED PROVIDER on 04-04-2025 RBC (Bld) [#/Vol] 4.04 10*6/uL Low 4.2-5.4 [facility] Serum creatinine measurement (mass/volume)Ordered By: Imani Knight on 04-04-2025 Creatinine [Mass/Vol] 0.55 mg/dL Low 0.70-1.20 [facility] Serum globulin measurementOr dered By: Imani Knight on 04-04-2025 Globulin (S) [Mass/Vol] 3.3 g/dL 2.2-4.2 [facility] Serum glucose measurement (m ass/volume)Ordered By: Imani Knight on 04-04-2025 Glucose [Mass/Vol] 131 mg/dL High 70-99 [facility] Serum or plasma alanine wilkerson otransferase (ALT) measurementOrdered By: Imani Knight on 04-04-2025 ALT [Catalytic activity/Vol] 44 U/L High <35 [facility] Serum or plasma albumin alphonso urement (mass/volume)Ordered By: Imani Knight on 04-04-2025 Albumin [Mass/Vol] 4.1 g/dL 3.5-5.0 [facility] Serum or plasma alkaline trinity sphatase measurementOrdered By: Imani Knight on 04-04-2025 ALP [Catalytic activity/Vol] 91 U/L 35-104 [facility] Serum or plasma calcium laphonso urement (mass/volume)Ordered By: Imani Knight on 04-04-2025 Calcium [Mass/Vol] 8.4 mg/dL 7.6-11.0 [facility] Serum or plasma urea nitroge n measurement (mass/volume)Ordered By: Imani Knight on 04-04-2025 Urea nitrogen [Mass/Vol] 5 mg/dL 4-19 [facility] Sodium levelOrdered By: Radha Knight on 04-04-2025 Sodium [Moles/Vol] 139 mmol/L 133-145 [facility] Total proteinOrdered By: Gwen Knight on 04-04-2025 Protein [Mass/Vol] 7.3 g/dL 5.9-8.4 [facility] Troponin T.cardiac [Mass/vol ume] in Serum or Plasma by High sensitivity methodOrdered By: Imani Knight on 04-04-2025 Troponin T.cardiac High sensitivity method [Mass/Vol] < 6 ng/L <14 [facility] Troponin T.cardiac High sensitivity method [Mass/Vol] < 6 ng/L <14 [facility] White blood cell (WBC) count Ordered By: ED PROVIDER on 04-04-2025 WBC (Bld) [#/Vol] 8.8 10*3/uL 4.4-11.0 [facility] 12 Lead EKGon 11-12-2024 12 Lead EKG Normal [facility] Basic Metabolic Profile (BMP )on 11-12-2024 BUN/CRE 23.8 RATIO High 10-20 [facility] Comment on above: Order Comment: 1Y Performed By: #### L 500.2500, L501.5425, L300.8000, L501.5200, L700.6800, L100.0100 ####[facility] [address] [place], [address] CA,Total 8.1 mg/dL Low 8.5-10.1 [facility] Comment on above: Order Comment: 1Y Performed By: #### L 500.2500, L501.5425, L300.8000, L501.5200, L700.6800, L100.0100 ####[facility] [address] [place], [address] Chloride [Moles/Vol] 99 mmol/L Normal 98-107 [facility] Comment on above: Order Comment: 1Y Performed By: #### L 500.2500, L501.5425, L300.8000, L501.5200, L700.6800, L100.0100 ####[facility] [address] [place], [address] CO2 [Moles/Vol] 27.0 mmol/L Normal 21.0-32.0 [facility] Comment on above: Order Comment: 1Y Performed By: #### L 500.2500, L501.5425, L300.8000, L501.5200, L700.6800, L100.0100 ####[facility] [address] [place], [address] Creatinine [Mass/Vol] 0.59 mg/dL Normal 0.55-1.02 [facility] Comment on above: Order Comment: 1Y Result Comment: The validity of the calculated GFR GFRAA in patients over70 years has not been determined. Clinical correlation isessential. Performed By: #### L 500.2500, L501.5425, L300.8000, L501.5200, L700.6800, L100.0100 ####[facility] [address] [place], [address] ECRCL 112.29 ml/min Normal [facility] Comment on above: Order Comment: 1Y Performed By: #### L 500.2500, L501.5425, L300.8000, L501.5200, L700.6800, L100.0100 ####[facility] [address] [place], [address] EST GFR - AA 140 mL/min Normal >60 [facility] Comment on above: Order Comment: 1Y Result Comment: Afri can Montenegrin GFR Calc Performed By: #### L 500.2500, L501.5425, L300.8000, L501.5200, L700.6800, L100.0100 ####[facility] [address] [place], [address] GAP 9 Normal 5-15 [facility] Comment on above: Order Comment: 1Y Performed By: #### L 500.2500, L501.5425, L300.8000, L501.5200, L700.6800, L100.0100 ####[facility] [address] [place], [address] GFR/1.73 sq M.predicted among non-blacks MDRD (S/P/Bld) [Vol rate/Area] 116 mL/min/{1.73_m2} Normal >60 [facility] Comment on above: Order Comment: 1Y Result Comment: Non- GFR Calc Performed By: #### L 500.2500, L501.5425, L300.8000, L501.5200, L700.6800, L100.0100 ####[facility] [address] [place], [address] Glucose [Mass/Vol] 131 mg/dL High 74-106 [facility] Comment on above: Order Comment: 1Y Result Comment: Fast ing Glucose result greater than or equal to 126 mg/dLsuggests DIABETES MELLITUS per A.D.A. criteria. Performed By: #### L 500.2500, L501.5425, L300.8000, L501.5200, L700.6800, L100.0100 ####[facility] [address] [place], [address] Potassium [Moles/Vol] 3.7 mmol/L Normal 3.5-5.1 [facility] Comment on above: Order Comment: 1Y Performed By: #### L 500.2500, L501.5425, L300.8000, L501.5200, L700.6800, L100.0100 ####[facility] [address] [place], [address] Sodium [Moles/Vol] 135 mmol/L Low 136-145 [facility] Comment on above: Order Comment: 1Y Performed By: #### L 500.2500, L501.5425, L300.8000, L501.5200, L700.6800, L100.0100 ####[facility] [address] [place], [address] Urea nitrogen [Mass/Vol] 14 mg/dL Normal 7-18 [facility] Comment on above: Order Comment: 1Y Performed By: #### L 500.2500, L501.5425, L300.8000, L501.5200, L700.6800, L100.0100 ####[facility] [address] [place], [address] CBC W/Diff, Automatedon 12-12 03-2023 Absolute Lymph 1.29 X10 3/uL Normal 0.83-4.51 [facility] Comment on above: Performed By: #### L 500.2500, L501.5425, L300.8000, L501.5200, L700.6800, L100.0100 ####[facility] [address] [place], [address] Absolute Neut 6.5 X10 3/uL Normal 2.0-7.7 [facility] Comment on above: Performed By: #### L 500.2500, L501.5425, L300.8000, L501.5200, L700.6800, L100.0100 ####[facility] [address] [place], [address] Basophils/100 WBC (Bld) 0.5 % Normal 0-1 [facility] Comment on above: Performed By: #### L 500.2500, L501.5425, L300.8000, L501.5200, L700.6800, L100.0100 ####[facility] [address] [place], [address] Eosinophils/100 WBC (Bld) 1.2 % Normal 0-5 [facility] Comment on above: Performed By: #### L 500.2500, L501.5425, L300.8000, L501.5200, L700.6800, L100.0100 ####[facility] [address] [place], [address] Erythrocyte distribution width (RBC) [Ratio] 13.1 % Normal 11.6-14.6 [facility] Comment on above: Performed By: #### L 500.2500, L501.5425, L300.8000, L501.5200, L700.6800, L100.0100 ####[facility] [address] [place], [address] Hematocrit (Bld) [Volume fraction] 37.7 % Normal 37-47 [facility] Comment on above: Performed By: #### L 500.2500, L501.5425, L300.8000, L501.5200, L700.6800, L100.0100 ####[facility] [address] [place], [address] Hemoglobin (Bld) [Mass/Vol] 12.9 g/dL Normal 12.0-15.0 [facility] Comment on above: Performed By: #### L 500.2500, L501.5425, L300.8000, L501.5200, L700.6800, L100.0100 ####[facility] [address] [place], [address] IG% 0.200 Normal 0.0-0.9 [facility] Comment on above: Result Comment: IG% - Immature Granulocytes (promyelocytes, myelocytes andmetamyelocytes) > 1% indicates that a LEFT SHIFT is Present. Performed By: #### L 500.2500, L501.5425, L300.8000, L501.5200, L700.6800, L100.0100 ####[facility] [address] [place], [address] Lymphocytes/100 WBC (Bld) 15.1 % Low 19-41 [facility] Comment on above: Performed By: #### L 500.2500, L501.5425, L300.8000, L501.5200, L700.6800, L100.0100 ####[facility] [address] [place], [address] MCH (RBC) [Entitic mass] 33.7 pg High 27.0-32.0 [facility] Comment on above: Performed By: #### L 500.2500, L501.5425, L300.8000, L501.5200, L700.6800, L100.0100 ####[facility] [address] [place], [address] MCHC (RBC) [Mass/Vol] 34.2 g/dL Normal 32-36 [facility] Comment on above: Performed By: #### L 500.2500, L501.5425, L300.8000, L501.5200, L700.6800, L100.0100 ####[facility] [address] [place], [address] MCV (RBC) [Entitic vol] 98.4 fL Normal 81-99 [facility] Comment on above: Performed By: #### L 500.2500, L501.5425, L300.8000, L501.5200, L700.6800, L100.0100 ####[facility] [address] [place], [address] Monocytes/100 WBC (Bld) 6.9 % Normal 0-10 [facility] Comment on above: Performed By: #### L 500.2500, L501.5425, L300.8000, L501.5200, L700.6800, L100.0100 ####[facility] [address] [place], [address] Neutrophils/100 WBC (Bld) 76.1 % High 47-70 [facility] Comment on above: Performed By: #### L 500.2500, L501.5425, L300.8000, L501.5200, L700.6800, L100.0100 ####[facility] [address] [place], [address] Nucleated RBC (Bld) [#/Vol] 0 10*3/uL Normal 0-5 [facility] Comment on above: Performed By: #### L 500.2500, L501.5425, L300.8000, L501.5200, L700.6800, L100.0100 ####[facility] [address] [place], [address] Platelet mean volume (Bld) [Entitic vol] 9.2 fL Normal 6.2-12.0 [facility] Comment on above: Performed By: #### L 500.2500, L501.5425, L300.8000, L501.5200, L700.6800, L100.0100 ####[facility] [address] [place], [address] Platelets (Bld) [#/Vol] 211 10*3/uL Normal 150-450 [facility] Comment on above: Performed By: #### L 500.2500, L501.5425, L300.8000, L501.5200, L700.6800, L100.0100 ####[facility] [address] [place], [address] RBC (Bld) [#/Vol] 3.83 10*6/uL Low 4.2-5.4 [facility] Comment on above: Performed By: #### L 500.2500, L501.5425, L300.8000, L501.5200, L700.6800, L100.0100 ####[facility] [address] [place], [place], [phone] RDW SD 46.6 fl High 35.1-43.9 [facility] Comment on above: Performed By: #### L 500.2500, L501.5425, L300.8000, L501.5200, L700.6800, L100.0100 ####[facility] [address] [place], [address] WBC (Bld) [#/Vol] 8.6 10*3/uL Normal 4.4-11.0 [facility] Comment on above: Performed By: #### L 500.2500, L501.5425, L300.8000, L501.5200, L700.6800, L100.0100 ####[facility] [address] [place], [place], [address] CTA Chest W/WO Contraston CTA Chest W/WO Contrast Normal [facility] Chest 1 View (Portable)on Chest 1 View (Portable) Normal [facility] D-Dimer Quantitative (DVT/PE )on 11-12-2024 D-DIMER QUANT 0.74 FEU/ug/m Invalid Interpretation Code 0.27-0.49 [facility] Comment on above: Order Comment: CRITI FLORECITA VALUE CALLED TO oyxhwepbremkaqt86/15/24 Renee Queen.RESULTS READ BACK BY same. Result Comment: D-Di clive ELEVATED (>0.49): Additional studies and clinicalassessments are indicated to conclude diagnosis of:Deep Vein Thrombosis (DVT) or Pulmonary Embolism (PE) Performed By: #### L 500.2500, L501.5425, L300.8000, L501.5200, L700.6800, L100.0100 ####[facility] [address] [place], [place], [id number] Emergency Department Summary on 11-12-2024 Emergency Department Summary Normal [facility] L501.4020on 11-12-2024 TROPONIN-I HS 6 pg/mL Normal 3.0-54.0 [facility] Comment on above: Result Comment: Plea se Note: New Test Units and Gender Specific Reference Ranges. For more information see Policy Stat Procedure [place] High Sensitivity Troponin (TNIH) and attachments. Performed By: #### L 501.4020 ####[facility] [address] [place], [place], [id number] L501.5425on 11-12-2024 TROPONIN-I HS 6 pg/mL Normal 3.0-54.0 [facility] Comment on above: Order Comment: 1Y Result Comment: Plea se Note: New Test Units and Gender Specific Reference Ranges. For more information see Policy Stat Procedure [place] High Sensitivity Troponin (TNIH) and attachments. Performed By: #### L 500.2500, L501.5425, L300.8000, L501.5200, L700.6800, L100.0100 ####[facility] [address] [place], [address] Magnesiumon 11-12-2024 Magnesium [Mass/Vol] 1.1 mg/dL Low 1.6-2.6 [facility] Comment on above: Order Comment: 1Y Performed By: #### L 500.2500, L501.5425, L300.8000, L501.5200, L700.6800, L100.0100 ####[facility] [id number] [place], [place], [id number] ,Serum,hCG Quali.on 11-12-2024 HCG, SERUM QUAL Negative Normal [facility] Comment on above: Performed By: #### L 500.2500, L501.5425, L300.8000, L501.5200, L700.6800, L100.0100 ####[facility] [id number] [place], [address] Orthopedic Visit Reporton Orthopedic Visit Report Normal [facility] Spine Lumbar (Routine)on Spine Lumbar (Routine) Normal [facility] L/S Spine Min 4 Viewson 08-01 L/S Spine Min 4 Views Normal [facility] Orthopedic Visit Reporton Orthopedic Visit Report Normal [facility] CNOVon 04-22-2024 CNOV Office Visit (UCWSTR ) JOSEPH RINCON ([id number]) 1975 F NFR Date Time Provider Department 04/22/24 1:30 PM ARETHA SCHOFIELD [facility] During your visit today, we recorded the following information about you: Temperature Pulse Respiration Blood pressure 97.4 degrees 115/minute 20/minute 120/84 Weight 75.8 kg Aretha Schofield APRN.AUTO CLAIM REPRESENTATIVE 04/22/2024 2:02 PM Signed Subjective Sinus Problem [...] since qu (more content not included)... Normal [facility] Basophil percentageOrdered B y: Milana Jose on 03-21-2024 Bilirubin [Mass/Vol] 0.60 mg/dL 0.20-1.00 [facility] Comment on above: For patients on eltr ombopag therapy, use of Dimension [place] TBIL is not recommended. Chloride [Moles/Vol] 105 mmol/L 98-[address] [facility] Glucose [Mass/Vol] 121 mg/dL 74-106 [facility] Comment on above: Fasting Glucose resu lt from 100 to 125 mg/dL suggests IMPAIRED HOMEOSTASIS per A.D.A. criteria. Potassium [Moles/Vol] 4.0 mmol/L 3.5-5.1 [facility] Protein [Mass/Vol] 7.6 g/dL 6.4-8.2 [facility] Sodium [Moles/Vol] 136 mmol/L 136-145 [facility] Laboratory - Chemistry and C hemistry - challengeOrdered By: Milana Garcia on 03-21-2024 Albumin/Globulin [Mass ratio] 0.9 {ratio} 0.9-2.4 [facility] ALP [Catalytic activity/Vol] 67 U/L 45-117 [facility] ALT [Catalytic activity/Vol] 27 U/L 13-56 [facility] CO2 [Moles/Vol] 24.0 mmol/L 21.0-32.0 [facility] Globulin (S) [Mass/Vol] 4.0 g/dL 2.2-4.2 [facility] Magnesium [Mass/Vol] 1.7 mg/dL 1.6-2.6 [facility] Sodium (U) [Moles/Vol] 104 mmol/L Not Establ. [facility] Urea nitrogen/Creatinine [Mass ratio] 21.6 mg/mg 10-20 [facility] No Panel InformationOrdered By: Milana Garcia on 03-21-2024 Estimated GFR (MDRD) Amer 108 mL/min >60 [facility] Comment on above: GFR Calc Estimated GFR (MDRD) Non-Af Amer 89 mL/min >60 [facility] Comment on above: Non- GFR Calc Serum or plasma calcium alphonso urement (mass/volume)Ordered By: Milana Garcia on 03-21-2024 Calcium [Mass/Vol] 8.8 mg/dL 8.5-10.1 [facility] Serum or plasma creatinine m easurement (mass/volume)Ordered By: Milana Garcia on 03-21-2024 Creatinine [Mass/Vol] 0.74 mg/dL 0.55-1.02 [facility] Comment on above: The validity of the calculated GFR & GFRAA in patients over 70 years has not been determined. Clinical correlation is essential. Serum or plasma thyroid stim ulating hormone (TSH) measurement (units/volume)Ordered By: Milana Garcia on 03-21-2024 TSH Qn 1.06 uIU/mL 0.358-3.74 [facility] Serum or plasma urea nitroge n measurement (mass/volume)Ordered By: Milana Garcia on 03-21-2024 Urea nitrogen [Mass/Vol] 16 mg/dL 7-18 [facility] Thin prep Papanicolaou smear with manual screeningOrdered By: Milana Garcia on 03-21-2024 Thin prep Papanicolaou smear with manual screening 3.6 g/dL 3.2-5.0 [facility] Thin prep Papanicolaou smear with manual screening 22 U/L 15-37 [facility] Thin prep Papanicolaou smear with manual screening 7 5-15 [facility] Thin prep Papanicolaou smear with manual screening 286 mOsm/KG 275-295 [facility] Urine osmolality measurement Ordered By: Milana Garcia on 03-21-2024 Osmolality (U) [Osmolality] 535 mOsm/KG >50 [facility] Comment on above: Normal Urine Referen ce Ranges Random: 50 - 1200 mOsm/kg H20 depending on fluid intake Random: >850 mOsm/kg after 12 hour fluid restriction 24 hour: ~300 - 900 mOsm/kg H2O Absolute lymphocyte countOrd ered By: Caprice Jerry on 01-24-2024 Lymphocytes Auto (Unsp spec) [#/Vol] 3.36 10*3/uL 0.83-4.51 [facility] Automated lymphocyte count a s percentage of total leukocytesOrdered By: Caprice Jerry on 01-24-2024 Lymphocytes/100 WBC Auto (Unsp spec) 33.3 % 19-41 [facility] Basophil percentageOrdered B y: Caprice Jerry on 01-24-2024 Basophils/100 WBC (Bld) 0.8 % 0-1 [facility] Chloride [Moles/Vol] 104 mmol/L 98-107 [facility] Eosinophils/100 WBC (Bld) 1.6 % 0-5 [facility] Glucose [Mass/Vol] 110 mg/dL 74-106 [facility] Comment on above: Fasting Glucose resu lt from 100 to 125 mg/dL suggests IMPAIRED HOMEOSTASIS per A.D.A. criteria. Hemoglobin (Bld) [Mass/Vol] 12.5 g/dL 12.0-15.0 [facility] Monocytes/100 WBC (Bld) 9.1 % 0-10 [facility] Neutrophils (Bld) [#/Vol] 5.5 10*3/uL 2.0-7.7 [facility] Neutrophils/100 WBC (Bld) 54.8 % 47-70 [facility] Potassium [Moles/Vol] 3.9 mmol/L 3.5-5.1 [facility] Sodium [Moles/Vol] 138 mmol/L 136-145 [facility] WBC (Bld) [#/Vol] 10.1 10*3/uL 4.4-11.0 [facility] Basophil percentageOrdered B y: Ainsley Bean on 01-24-2024 Bilirubin [Mass/Vol] 0.30 mg/dL 0.20-1.00 [facility] Comment on above: For patients on eltr ombopag therapy, use of Dimension [place] TBIL is not recommended. Protein [Mass/Vol] 7.1 g/dL 6.4-8.2 [facility] Determination of erythrocyte mean corpuscular volume (MCV)Ordered By: Caprice Jerry on 01-24-2024 MCV (RBC) [Entitic vol] 95.9 fL 81-99 [facility] Direct bilirubinOrdered By: Ainsley Bean on 01-24-2024 Bilirubin.direct [Mass/Vol] 0.12 mg/dL 0.00-0.30 [facility] Erythrocyte distribution wid th ratioOrdered By: Caprice Jerry on 01-24-2024 Erythrocyte distribution width (RBC) [Ratio] 11.9 % 11.6-14.6 [facility] Erythrocyte distribution wid th standard deviationOrdered By: Caprice Jerry on 01-24-2024 Erythrocyte distribution width (RBC) [Entitic vol] 41.5 fL 35.1-43.9 [facility] Hematocrit Auto (Bld) [Volum e fraction]Ordered By: Caprice Jerry on 01-24-2024 Hematocrit (Bld) [Volume fraction] 37.4 % 37-47 [facility] Immature granulocytes/100 WB C Auto (Bld)Ordered By: Caprice Jerry on 01-24-2024 Immature granulocytes/100 WBC (Bld) 0.400 % 0.0-0.9 [facility] Comment on above: IG% - Immature Granu locytes (promyelocytes, myelocytes and metamyelocytes) > 1% indicates that a LEFT SHIFT is Present. Laboratory - Chemistry and C hemistry - challengeOrdered By: Ainsley Bean on 01-24-2024 ALP [Catalytic activity/Vol] 69 U/L 45-117 [facility] ALT [Catalytic activity/Vol] 23 U/L 13-56 [facility] Globulin (S) [Mass/Vol] 3.7 g/dL 2.2-4.2 [facility] Lipase [Catalytic activity/Vol] 88 U/L 13-75 [facility] Comment on above: Please note:LIPASE r evised reference range effective 23. New Lipase methodology. Expected to produce lower values than the previous assay method. NEW Reference Range: 13 - 75 U/L Laboratory - Chemistry and C hemistry - challengeOrdered By: Caprice Jerry on 01-24-2024 CO2 [Moles/Vol] 29.0 mmol/L 21.0-32.0 [facility] Urea nitrogen/Creatinine [Mass ratio] 21.7 mg/mg 10-20 [facility] Laboratory - Hematology and Cell countsOrdered By: Caprice Jerry on 01-24-2024 MCH (RBC) [Entitic mass] 32.1 pg 27.0-32.0 [facility] MCHC (RBC) [Mass/Vol] 33.4 g/dL 32-36 [facility] Nucleated RBC/100 WBC (Bld) [Ratio] 0 % 0-5 [facility] Platelet mean volume (Bld) [Entitic vol] 9.6 fL 6.2-12.0 [facility] Platelets (Bld) [#/Vol] 264 10*3/uL 150-450 [facility] No Panel InformationOrdered By: Ainsley Bean on 01-24-2024 Troponin I High Sensitivity 4 pg/mL 3.0-54.0 [facility] Comment on above: Please Note: New Miri t Units and Gender Specific Reference Ranges. For more information see Policy Stat Procedure [place] High Sensitivity Troponin (TNIH) and attachments. No Panel InformationOrdered By: Caprice Jerry on 01-24-2024 Estimated GFR (MDRD) Amer 108 mL/min >60 [facility] Comment on above: GFR Calc Estimated GFR (MDRD) Non-Af Amer 90 mL/min >60 [facility] Comment on above: Non- GFR Calc RBC Auto (Bld) [#/Vol]Ordere d By: Caprice Jerry on 01-24-2024 RBC (Bld) [#/Vol] 3.90 10*6/uL 4.2-5.4 [facility] Serum or plasma calcium alphonso urement (mass/volume)Ordered By: Caprice Jerry on 01-24-2024 Calcium [Mass/Vol] 10.1 mg/dL 8.5-10.1 [facility] Serum or plasma creatinine m easurement (mass/volume)Ordered By: Caprice Jerry on 01-24-2024 Creatinine [Mass/Vol] 0.74 mg/dL 0.55-1.02 [facility] Comment on above: The validity of the calculated GFR & GFRAA in patients over 70 years has not been determined. Clinical correlation is essential. Serum or plasma urea nitroge n measurement (mass/volume)Ordered By: Caprice Jerry on 01-24-2024 Urea nitrogen [Mass/Vol] 16 mg/dL 7-18 [facility] Thin prep Papanicolaou smear with manual screeningOrdered By: Ainsley Bean on 01-24-2024 Thin prep Papanicolaou smear with manual screening 3.4 g/dL 3.2-5.0 [facility] Thin prep Papanicolaou smear with manual screening 25 U/L 15-37 [facility] Comment on above: Slight Hemolysis, Re sult may be falsely increased. Thin prep Papanicolaou smear with manual screeningOrdered By: Caprice Jerry on 01-24-2024 Thin prep Papanicolaou smear with manual screening 5 5-15 [facility] Absolute lymphocyte countOrd ered By: Caprice Jerry on 10-10-2023 Lymphocytes Auto (Unsp spec) [#/Vol] 0.98 10*3/uL 0.83-4.51 [facility] Basophil percentageOrdered B y: Caprice Jerry on 10-10-2023 Basophils/100 WBC (Bld) 0.3 % 0-1 [facility] Bilirubin [Mass/Vol] 1.00 mg/dL 0.20-1.00 [facility] Comment on above: For patients on eltr ombopag therapy, use of Dimension [place] TBIL is not recommended. Chloride [Moles/Vol] 103 mmol/L 98-107 [facility] Eosinophils/100 WBC (Bld) 0.2 % 0-5 [facility] Glucose [Mass/Vol] 175 mg/dL 74-106 [facility] Comment on above: Fasting Glucose resu lt greater than or equal to 126 mg/dL suggests DIABETES MELLITUS per A.D.A. criteria. Neutrophils (Bld) [#/Vol] 7.6 10*3/uL 2.0-7.7 [facility] Neutrophils/100 WBC (Bld) 81.6 % 47-70 [facility] Potassium [Moles/Vol] 3.9 mmol/L 3.5-5.1 [facility] Protein [Mass/Vol] 7.3 g/dL 6.4-8.2 [facility] Sodium [Moles/Vol] 133 mmol/L 136-145 [facility] WBC (Bld) [#/Vol] 9.3 10*3/uL 4.4-11.0 [facility] Blood erythrocytes count (nu mber/volume)Ordered By: Caprice Jerry on 10-10-2023 RBC (Bld) [#/Vol] 4.14 10*6/uL 4.2-5.4 [facility] Blood hemoglobin measurement (mass/volume)Ordered By: Caprice Jerry on 10-10-2023 Hemoglobin (Bld) [Mass/Vol] 13.5 g/dL 12.0-15.0 [facility] Blood lymphocytes/100 leukoc ytesOrdered By: Caprice Jerry on 10-10-2023 Lymphocytes/100 WBC (Bld) 10.6 % 19-41 [facility] Blood monocytes/100 leukocyt esOrdered By: Caprice Jerry on 10-10-2023 Monocytes/100 WBC (Bld) 7.0 % 0-10 [facility] Blood platelet mean volumeOr dered By: Caprice Jerry on 10-10-2023 Platelet mean volume (Bld) [Entitic vol] 9.7 fL 6.2-12.0 [facility] Determination of erythrocyte mean corpuscular volume (MCV)Ordered By: Caprice Jerry on 10-10-2023 MCV (RBC) [Entitic vol] 98.3 fL 81-99 [facility] Direct bilirubinOrdered By: Caprice Jerry on 10-10-2023 Bilirubin.direct [Mass/Vol] 0.30 mg/dL 0.00-0.30 [facility] Hematocrit Auto (Bld) [Volum e fraction]Ordered By: Caprice Jerry on 10-10-2023 Hematocrit (Bld) [Volume fraction] 40.7 % 37-47 [facility] Influenza virus A and B and SARS-CoV-2 (COVID-19) Ag panel - Upper respiratory specimOrdered By: Caprice Jerry on 10-10-2023 SARS-CoV-2 (COVID-19) RNA ALLEY+probe Ql (Resp) [facility] Laboratory - Chemistry and C hemistry - challengeOrdered By: Caprice Jerry on 10-10-2023 ALP [Catalytic activity/Vol] 97 U/L 45-117 [facility] ALT [Catalytic activity/Vol] 54 U/L 13-56 [facility] CO2 [Moles/Vol] 22.0 mmol/L 21.0-32.0 [facility] Globulin (S) [Mass/Vol] 3.8 g/dL 2.2-4.2 [facility] Lipase [Catalytic activity/Vol] 45 U/L 13-75 [facility] Comment on above: Please note:LIPASE r evised reference range effective 23. New Lipase methodology. Expected to produce lower values than the previous assay method. NEW Reference Range: 13 - 75 U/L Urea nitrogen/Creatinine [Mass ratio] 8.9 mg/mg 10-20 [facility] - Hematology and Cell countsOrdered By: Caprice Jerry on 10-10-2023 Erythrocyte distribution width (RBC) [Entitic vol] 44.4 fL 35.1-43.9 [facility] Erythrocyte distribution width (RBC) [Ratio] 12.4 % 11.6-14.6 [facility] Immature granulocytes/100 WBC (Bld) 0.300 % 0.0-0.9 [facility] Comment on above: IG% - Immature Granu locytes (promyelocytes, myelocytes and metamyelocytes) > 1% indicates that a LEFT SHIFT is Present. MCH (RBC) [Entitic mass] 32.6 pg 27.0-32.0 [facility] Nucleated RBC/100 WBC (Bld) [Ratio] 0 % 0-5 [facility] MCHC Auto (RBC) [Mass/Vol]Or dered By: Caprice Jerry on 10-10-2023 MCHC (RBC) [Mass/Vol] 33.2 g/dL 32-36 [facility] No Panel InformationOrdered By: Caprice Jerry on 10-10-2023 D-Dimer Quantitative (PE/DVT) 0.45 FEU/ug/m 0.27-0.49 [facility] Comment on above: NORMAL D-Dimer level (<0.50) indicates no DVT or PE. Estimated Creatinine Clearance Calc 31.78 ml/min [facility] Estimated GFR (MDRD) Amer 36 mL/min >60 [facility] Comment on above: GFR Calc Estimated GFR (MDRD) Non-Af Amer 30 mL/min >60 [facility] Comment on above: Non- GFR Calc Troponin I High Sensitivity 12 pg/mL 3.0-54.0 [facility] Comment on above: Please Note: New [place] t Units and Gender Specific Reference Ranges. For more information see Policy Stat Procedure [place] High Sensitivity Troponin (TNIH) and attachments. Platelets bldOrdered By: Leona Jerry on 10-10-2023 Platelets (Bld) [#/Vol] 255 10*3/uL 150-450 [facility] Serum or plasma albumin alphonso urement (mass/volume)Ordered By: Caprice Jerry on 10-10-2023 Albumin [Mass/Vol] 3.5 g/dL 3.2-5.0 [facility] Serum or plasma calcium alphonso urement (mass/volume)Ordered By: Caprice Jerry on 10-10-2023 Calcium [Mass/Vol] 8.1 mg/dL 8.5-10.1 [facility] Serum or plasma creatinine m easurement (mass/volume)Ordered By: Caprice Jerry on 10-10-2023 Creatinine [Mass/Vol] 1.91 mg/dL 0.55-1.02 [facility] Comment on above: The validity of the calculated GFR & GFRAA in patients over 70 years has not been determined. Clinical correlation is essential. Serum or plasma urea nitroge n measurement (mass/volume)Ordered By: Caprice Jerry on 10-10-2023 Urea nitrogen [Mass/Vol] 17 mg/dL 06-15 [facility] Thin prep Papanicolaou smear with manual screeningOrdered By: Caprice Jerry on 10-10-2023 Thin prep Papanicolaou smear with manual screening 68 U/L 15 [facility] Thin prep Papanicolaou smear with manual screening 8 5-15 [facility] No Panel Informationon 09-15 POC SARS CoV-2 Antigen Negative [facility] Basophil percentageOrdered B y: Jim Manriquez on 08-25-2023 Bilirubin [Mass/Vol] 0.20 mg/dL 0.20-1.00 [facility] Comment on above: For patients on eltr ombopag therapy, use of Dimension [place] TBIL is not recommended. Cholesterol [Mass/Vol] 224 mg/dL <200 [facility] Comment on above: <200 mg/dL Desirable 200-240 mg/dL Borderline >240 mg/dL High Risk Protein [Mass/Vol] 7.2 g/dL 6.4-8.2 [facility] Triglyceride [Mass/Vol] 405 mg/dL <199 [facility] Comment on above: The drugs [...] on 08-25-2023 Bilirubin.direct [Mass/Vol] 0.10 mg/dL 0.00-0.30 [facility] - Chemistry and C hemistry - challengeOrdered By: Jim Manriquez on 08-25-2023 ALP [Catalytic activity/Vol] 97 U/L 45-117 [facility] ALT [Catalytic activity/Vol] 88 U/L 13-56 [facility] Globulin (S) [Mass/Vol] 3.7 g/dL 2.2-4.2 [facility] Lipase [Catalytic activity/Vol] 53 U/L 13-75 [facility] Comment on above: Please note:LIPASE r evised reference range effective 23. New Lipase methodology. Expected to produce lower values than the previous assay method. NEW Reference Range: 13 - 75 U/L Serum or plasma albumin alphonso urement (mass/volume)Ordered By: Jim Manriquez on 08-25-2023 Albumin [Mass/Vol] 3.5 g/dL 3.2-5.0 [facility] Serum or plasma cholesterol in HDL measurement (mass/volume)Ordered By: Jim Manriquez on 08-25-2023 Cholesterol in HDL [Mass/Vol] 61 mg/dL >40 [facility] Comment on above: The drugs N-Acetylcy steine and Metamizole may falsely depress this assay. Reference Range HDL <40 mg/dL Low HDL Cholesterol HDL >or= 60 mg/dL High HDL Cholesterol Serum or plasma cholesterol in VLDL measurement (mass/volume)Ordered By: Jim Manriquez on 08-25-2023 Cholesterol in VLDL [Mass/Vol] [facility] Comment on above: Test not performed Serum or plasma low density lipoprotein (LDL) cholesterol measurement (mass/volume)Ordered By: Jim Manriquez on 08-25-2023 Cholesterol in LDL [Mass/Vol] [facility] Comment on above: Test not performed Thin prep Papanicolaou smear with manual screeningOrdered By: Jim Manriquez on 08-25-2023 Thin prep Papanicolaou smear with manual screening 43 U/L 15-37 [facility] Absolute lymphocyte countOrd ered By: Jennifer Davila on 08-23-2023 Lymphocytes Auto (Unsp spec) [#/Vol] 2.29 10*3/uL 0.83-4.51 [facility] Basophil percentageOrdered B y: Jennifer Davila on 08-23-2023 Basophil percentage 0 SEEN /hpf 0-5 [facility] Basophils/100 WBC (Bld) 0.5 % 0-1 [facility] Bilirubin [Mass/Vol] 0.30 mg/dL 0.20-1.00 [facility] Comment on above: For patients on eltr ombopag therapy, use of Dimension [place] TBIL is not recommended. Chloride [Moles/Vol] 103 mmol/L 98-107 [facility] Eosinophils/100 WBC (Bld) 1.6 % 0-5 [facility] Glucose [Mass/Vol] 205 mg/dL 74-106 [facility] Comment on above: Glucose result great er than or equal to 200 mg/dLsuggests DIABETES MELLITUS per A.D.A. criteria. Neutrophils (Bld) [#/Vol] 7.5 10*3/uL 2.0-7.7 [facility] Neutrophils/100 WBC (Bld) 69.4 % 47-70 [facility] Potassium [Moles/Vol] 4.3 mmol/L 3.5-5.1 [facility] Protein [Mass/Vol] 7.8 g/dL 6.4-8.2 [facility] Sodium [Moles/Vol] 135 mmol/L 136-145 [facility] WBC (Bld) [#/Vol] 10.8 10*3/uL 4.4-11.0 [facility] Bilirubin Test strip Ql (U)O rdered By: Jennifer Davila on 08-23-2023 Bilirubin Ql (U) Negative Negative [facility] Blood erythrocytes count (nu mber/volume)Ordered By: Jennifer Davila on 08-23-2023 RBC (Bld) [#/Vol] 4.30 10*6/uL 4.2-5.4 [facility] Blood hemoglobin measurement (mass/volume)Ordered By: Jennifer Davila on 08-23-2023 Hemoglobin (Bld) [Mass/Vol] 14.0 g/dL 12.0-15.0 [facility] Blood lymphocytes/100 leukoc ytesOrdered By: Jennifer Davila on 08-23-2023 Lymphocytes/100 WBC (Bld) 21.3 % 19-41 [facility] Blood monocytes/100 leukocyt esOrdered By: Jennifer Davila on 08-23-2023 Monocytes/100 WBC (Bld) 6.7 % 0-10 [facility] Blood platelet mean volumeOr dered By: Jennifer Davila on 08-23-2023 Platelet mean volume (Bld) [Entitic vol] 9.6 fL 6.2-12.0 [facility] Determination of erythrocyte mean corpuscular volume (MCV)Ordered By: Jennifer Davila on 08-23-2023 MCV (RBC) [Entitic vol] 97.9 fL 81-99 [facility] Hematocrit Auto (Bld) [Volum e fraction]Ordered By: Jennifer Davila on 08-23-2023 Hematocrit (Bld) [Volume fraction] 42.1 % 37-47 [facility] Ketones Test strip Ql (U)Ord ered By: Jennifer Davila on 08-23-2023 Ketones Ql (U) Negative Negative [facility] Laboratory - Chemistry and C hemistry - challengeOrdered By: Jennifer Davila on 08-23-2023 ALP [Catalytic activity/Vol] 69 U/L 45-117 [facility] ALT [Catalytic activity/Vol] 26 U/L 13-56 [facility] CO2 [Moles/Vol] 24.0 mmol/L 21.0-32.0 [facility] Globulin (S) [Mass/Vol] 4.2 g/dL 2.2-4.2 [facility] Lipase [Catalytic activity/Vol] 41 U/L 13-75 [facility] Comment on above: Please note:LIPASE r evised reference range effective 23. New Lipase methodology. Expected to produce lower values than the previous assay method. NEW Reference Range: 13 - 75 U/L Urea nitrogen/Creatinine [Mass ratio] 9.5 mg/mg 10-20 [facility] - Hematology and Cell countsOrdered By: Jennifer Davila on 08-23-2023 Erythrocyte distribution width (RBC) [Entitic vol] 45.9 fL 35.1-43.9 [facility] Erythrocyte distribution width (RBC) [Ratio] 12.8 % 11.6-14.6 [facility] Immature granulocytes/100 WBC (Bld) 0.500 % 0.0-0.9 [facility] Comment on above: IG% - Immature Granu locytes (promyelocytes, myelocytes and metamyelocytes) > 1% indicates that a LEFT SHIFT is Present. MCH (RBC) [Entitic mass] 32.6 pg 27.0-32.0 [facility] Nucleated RBC/100 WBC (Bld) [Ratio] 0 % 0-5 [facility] MCHC Auto (RBC) [Mass/Vol]Or dered By: Jennifer Davila on 08-23-2023 MCHC (RBC) [Mass/Vol] 33.3 g/dL 32-36 [facility] Mucus LM Ql (Urine sed)Order ed By: Jennifer Davila on 08-23-2023 Mucus Ql (Urine sed) 0 SEEN /hpf [facility] Nitrite Test strip Ql (U)Ord ered By: Jennifer Davila on 08-23-2023 Nitrite Ql (U) Negative Negative [facility] No Panel InformationOrdered By: Jennifer Davila on 08-23-2023 Estimated Creatinine Clearance Calc 57.81 ml/min [facility] Estimated GFR (MDRD) Amer 72 mL/min >60 [facility] Comment on above: GFR Calc Estimated GFR (MDRD) Non-Af Amer 60 mL/min >60 [facility] Comment on above: Non- GFR Calc Troponin I High Sensitivity 3 pg/mL 3.0-54.0 [facility] Comment on above: Please Note: New [place]i t Units and Gender Specific Reference Ranges. For more information see Policy Stat Procedure [place] High Sensitivity Troponin (TNIH) and attachments. Platelets bldOrdered By: Kole Davila on 08-23-2023 Platelets (Bld) [#/Vol] 264 10*3/uL 150-450 [facility] Protein Test strip Ql (U)Ord ered By: Jennifer Davila on 08-23-2023 Protein Ql (U) Negative Negative [facility] Serum or plasma albumin alphonso urement (mass/volume)Ordered By: Jennifer Davila on 08-23-2023 Albumin [Mass/Vol] 3.6 g/dL 3.2-5.0 [facility] Serum or plasma albumin/glob ulin mass ratioOrdered By: Jennifer Davila on 08-23-2023 Albumin/Globulin [Mass ratio] 0.9 {ratio} 0.9-2.4 [facility] Serum or plasma calcium alphonso urement (mass/volume)Ordered By: Jennifer Davila on 08-23-2023 Calcium [Mass/Vol] 8.8 mg/dL 8.5-10.1 [facility] Serum or plasma creatinine m easurement (mass/volume)Ordered By: Jennifer Davila on 08-23-2023 Creatinine [Mass/Vol] 1.05 mg/dL 0.55-1.02 [facility] Comment on above: The validity of the calculated GFR & GFRAA in patients over 70 years has not been determined. Clinical correlation is essential. Serum or plasma urea nitroge n measurement (mass/volume)Ordered By: Jennifer Davila on 08-23-2023 Urea nitrogen [Mass/Vol] 10 mg/dL 7-18 [facility] Squamous epithelial cells de tection in urine sediment by light microscopyOrdered By: Jennifer Davila on 08-23-2023 Epithelial cells.squamous LM Ql (Urine sed) 0-5 SEEN /hpf 5-10 [facility] Thin prep Papanicolaou smear with manual screeningOrdered By: Jennifer Davila on 08-23-2023 Thin prep Papanicolaou smear with manual screening 18 U/L 15-37 [facility] Thin prep Papanicolaou smear with manual screening 8 5-15 [facility] Urine blood detectionOrdered By: Jennifer Davila on 08-23-2023 RBC Ql (U) Negative Negative [facility] RBC Ql (U) 0 SEEN /hpf 0-5 [facility] Urine clarityOrdered By: Kole Davila on 08-23-2023 Clarity (U) Clear Clear [facility] Urine color determinationOrd ered By: Jennifer Davila on 08-23-2023 Color (U) Yellow Yellow [facility] Urine glucose detectionOrder ed By: Jennifer Davila on 08-23-2023 Glucose Ql (U) 1000 mg/dl Normal [facility] Urine leukocyte esterase det ection by dipstickOrdered By: Jennifer Davila on 08-23-2023 Leukocyte esterase Test strip Ql (U) Negative Negative [facility] Urine pHOrdered By: Suha Davila on 08-23-2023 pH (U) 6.0 [pH] 5.0 - 8.0 [facility] Urine sediment bacteria coun t by microscopy (number/high power field)Ordered By: Jennifer Davila on 08-23-2023 Bacteria LM.HPF (Urine sed) [#/Area] 0 /[HPF] None Seen [facility] Urine specific gravity measu rementOrdered By: Jennifer Davila on 08-23-2023 Specific gravity (U) [Rel density] 1.010 1.002-1.030 [facility] Urobilinogen Auto test strip Ql (U)Ordered By: Jennifer Davila on 08-23-2023 Urobilinogen Ql (U) Normal mg/dl Normal [facility] Absolute lymphocyte countOrd ered By: Caprice Jerry on 07-29-2023 Lymphocytes Auto (Unsp spec) [#/Vol] 2.24 10*3/uL 0.83-4.51 [facility] Basophil percentageOrdered B y: Caprice Jerry on 07-29-2023 Basophils/100 WBC (Bld) 0.5 % 0-1 [facility] Bilirubin [Mass/Vol] 0.30 mg/dL 0.20-1.00 [facility] Comment on above: For patients on eltr ombopag therapy, use of Dimension [place] TBIL is not recommended. Chloride [Moles/Vol] 102 mmol/L 98-107 [facility] Eosinophils/100 WBC (Bld) 1.6 % 0-5 [facility] Glucose [Mass/Vol] 173 mg/dL 74-106 [facility] Comment on above: Fasting Glucose resu lt greater than or equal to 126 mg/dL suggests DIABETES MELLITUS per A.D.A. criteria. Neutrophils (Bld) [#/Vol] 5.6 10*3/uL 2.0-7.7 [facility] Neutrophils/100 WBC (Bld) 63.7 % 47-70 [facility] Potassium [Moles/Vol] 3.9 mmol/L 3.5-5.1 [facility] Protein [Mass/Vol] 7.3 g/dL 6.4-8.2 [facility] Sodium [Moles/Vol] 135 mmol/L 136-145 [facility] WBC (Bld) [#/Vol] 8.8 10*3/uL 4.4-11.0 [facility] Beta hCG serum qualOrdered B y: Caprice Jerry on 07-29-2023 Beta HCG ( test) Ql Negative [facility] Blood erythrocytes count (nu mber/volume)Ordered By: Caprice Jerry on 07-29-2023 RBC (Bld) [#/Vol] 3.94 10*6/uL 4.2-5.4 [facility] Blood hemoglobin measurement (mass/volume)Ordered By: Caprice Jerry on 07-29-2023 Hemoglobin (Bld) [Mass/Vol] 13.1 g/dL 12.0-15.0 [facility] Blood lymphocytes/100 leukoc ytesOrdered By: Caprice Jerry on 07-29-2023 Lymphocytes/100 WBC (Bld) 25.4 % 19-41 [facility] Blood monocytes/100 leukocyt esOrdered By: Caprice Jerry on 07-29-2023 Monocytes/100 WBC (Bld) 8.5 % 0-10 [facility] Blood platelet mean volumeOr dered By: Caprice Jerry on 07-29-2023 Platelet mean volume (Bld) [Entitic vol] 9.6 fL 6.2-12.0 [facility] Determination of erythrocyte mean corpuscular volume (MCV)Ordered By: Caprice Jerry on 07-29-2023 MCV (RBC) [Entitic vol] 97.7 fL 81-99 [facility] Direct bilirubinOrdered By: Caprice Jerry on 07-29-2023 Bilirubin.direct [Mass/Vol] 0.08 mg/dL 0.00-0.30 [facility] Hematocrit Auto (Bld) [Volum e fraction]Ordered By: Caprice Jerry on 07-29-2023 Hematocrit (Bld) [Volume fraction] 38.5 % 37-47 [facility] - Chemistry and C hemistry - challengeOrdered By: Caprice Jerry on 07-29-2023 ALP [Catalytic activity/Vol] 93 U/L 45-117 [facility] ALT [Catalytic activity/Vol] 45 U/L 13-56 [facility] CO2 [Moles/Vol] 26.0 mmol/L 21.0-32.0 [facility] Globulin (S) [Mass/Vol] 3.8 g/dL 2.2-4.2 [facility] Lipase [Catalytic activity/Vol] 32 U/L 13-75 [facility] Comment on above: Please note:LIPASE r evised reference range effective 23. New Lipase methodology. Expected to produce lower values than the previous assay method. NEW Reference Range: 13 - 75 U/L Urea nitrogen/Creatinine [Mass ratio] 12.5 mg/mg 10-20 [facility] - Hematology and Cell countsOrdered By: Caprice Jerry on 07-29-2023 Erythrocyte distribution width (RBC) [Entitic vol] 45.1 fL 35.1-43.9 [facility] Erythrocyte distribution width (RBC) [Ratio] 12.7 % 11.6-14.6 [facility] Immature granulocytes/100 WBC (Bld) 0.300 % 0.0-0.9 [facility] Comment on above: IG% - Immature Granu locytes (promyelocytes, myelocytes and metamyelocytes) > 1% indicates that a LEFT SHIFT is Present. MCH (RBC) [Entitic mass] 33.2 pg 27.0-32.0 [facility] Nucleated RBC/100 WBC (Bld) [Ratio] 0 % 0-5 [facility] MCHC Auto (RBC) [Mass/Vol]Or dered By: Caprice Jerry on 07-29-2023 MCHC (RBC) [Mass/Vol] 34.0 g/dL 32-36 [facility] No Panel InformationOrdered By: Caprice Jerry on 07-29-2023 Troponin I High Sensitivity 4 pg/mL 3.0-54.0 [facility] Comment on above: Please Note: [place] Units and Gender Specific Reference Ranges. For more information see Policy Stat Procedure [place] High Sensitivity Troponin (TNIH) and attachments. Estimated Creatinine Clearance Calc 68.98 ml/min [facility] Estimated GFR (MDRD) Amer 89 mL/min >60 [facility] Comment on above: GFR Calc Estimated GFR (MDRD) Non-Af Amer 74 mL/min >60 [facility] Comment on above: Non- GFR Calc Platelets bldOrdered By: Leona Jerry on 07-29-2023 Platelets (Bld) [#/Vol] 281 10*3/uL 150-450 [facility] Serum or plasma albumin alphonso urement (mass/volume)Ordered By: Caprice Jerry on 07-29-2023 Albumin [Mass/Vol] 3.5 g/dL 3.2-5.0 [facility] Serum or plasma calcium alphonso urement (mass/volume)Ordered By: Caprice Jerry on 07-29-2023 Calcium [Mass/Vol] 8.5 mg/dL 8.5-10.1 [facility] Serum or plasma creatinine m easurement (mass/volume)Ordered By: aCprice Jerry on 07-29-2023 Creatinine [Mass/Vol] 0.88 mg/dL 0.55-1.02 [facility] Comment on above: The validity of the calculated GFR & GFRAA in patients over 70 years has not been determined. Clinical correlation is essential. Serum or plasma urea nitroge n measurement (mass/volume)Ordered By: Caprice Jerry on 07-29-2023 Urea nitrogen [Mass/Vol] 11 mg/dL 7-18 [facility] Thin prep Papanicolaou smear with manual screeningOrdered By: Caprice Jerry on 07-29-2023 Thin prep Papanicolaou smear with manual screening 24 U/L 15-37 [facility] Thin prep Papanicolaou smear with manual screening 7 5-15 [facility] Absolute lymphocyte countOrd ered By: Milana Garcia on 07-19-2023 Lymphocytes Auto (Unsp spec) [#/Vol] 2.51 10*3/uL 0.83-4.51 [facility] Basophil percentageOrdered B y: Milana Garcia on 07-19-2023 Basophil percentage 3.1 mg/dL 2.5-4.9 [facility] Basophils/100 WBC (Bld) 0.4 % 0-1 [facility] Bilirubin [Mass/Vol] 0.50 mg/dL 0.20-1.00 [facility] Comment on above: For patients on eltr ombopag therapy, use of Dimension [place] TBIL is not recommended. Chloride [Moles/Vol] 106 mmol/L 98-107 [facility] Eosinophils/100 WBC (Bld) 3.2 % 0-5 [facility] Glucose [Mass/Vol] 123 mg/dL 74-106 [facility] Comment on above: Fasting Glucose resu lt from 100 to 125 mg/dL suggests IMPAIRED HOMEOSTASIS per A.D.A. criteria. Neutrophils (Bld) [#/Vol] 3.7 10*3/uL 2.0-7.7 [facility] Neutrophils/100 WBC (Bld) 52.0 % 47-70 [facility] Potassium [Moles/Vol] 3.5 mmol/L 3.5-5.1 [facility] Protein [Mass/Vol] 6.9 g/dL 6.4-8.2 [facility] Sodium [Moles/Vol] 140 mmol/L 136-145 [facility] WBC (Bld) [#/Vol] 7.2 10*3/uL 4.4-11.0 [facility] Blood erythrocytes count (nu mber/volume)Ordered By: Milana Garcia on 07-19-2023 RBC (Bld) [#/Vol] 3.83 10*6/uL 4.2-5.4 [facility] Blood hemoglobin measurement (mass/volume)Ordered By: Milana Garcia on 07-19-2023 Hemoglobin (Bld) [Mass/Vol] 12.3 g/dL 12.0-15.0 [facility] Blood lymphocytes/100 leukoc ytesOrdered By: Milana Garcia on 07-19-2023 Lymphocytes/100 WBC (Bld) 35.1 % 19-41 [facility] Blood monocytes/100 leukocyt esOrdered By: Milana Garcia on 07-19-2023 Monocytes/100 WBC (Bld) 9.0 % 0-10 [facility] Blood platelet mean volumeOr dered By: Milana Garcia on 07-19-2023 Platelet mean volume (Bld) [Entitic vol] 9.6 fL 6.2-12.0 [facility] Determination of erythrocyte mean corpuscular volume (MCV)Ordered By: Milana Garcia on 07-19-2023 MCV (RBC) [Entitic vol] 97.9 fL 81-99 [facility] Hematocrit Auto (Bld) [Volum e fraction]Ordered By: Milana Garcia on 07-19-2023 Hematocrit (Bld) [Volume fraction] 37.5 % 37-47 [facility] - Chemistry and C hemistry - challengeOrdered By: Milana Garcia on 07-19-2023 ALP [Catalytic activity/Vol] 68 U/L 45-117 [facility] ALT [Catalytic activity/Vol] 28 U/L 13-56 [facility] CO2 [Moles/Vol] 27.0 mmol/L 21.0-32.0 [facility] Cobalamin (Vitamin B12) [Mass/Vol] 534 pg/mL 211-911 [facility] Globulin (S) [Mass/Vol] 3.6 g/dL 2.2-4.2 [facility] Magnesium [Mass/Vol] 1.6 mg/dL 1.6-2.6 [facility] Urea nitrogen/Creatinine [Mass ratio] 10.4 mg/mg 10-20 [facility] - Hematology and Cell countsOrdered By: Milana Garcia on 07-19-2023 Erythrocyte distribution width (RBC) [Entitic vol] 43.8 fL 35.1-43.9 [facility] Erythrocyte distribution width (RBC) [Ratio] 12.3 % 11.6-14.6 [facility] Immature granulocytes/100 WBC (Bld) 0.300 % 0.0-0.9 [facility] Comment on above: IG% - Immature Granu locytes (promyelocytes, myelocytes and metamyelocytes) > 1% indicates that a LEFT SHIFT is Present. MCH (RBC) [Entitic mass] 32.1 pg 27.0-32.0 [facility] Nucleated RBC/100 WBC (Bld) [Ratio] 0 % 0-5 [facility] MCHC Auto (RBC) [Mass/Vol]Or dered By: Milana Garcia on 07-19-2023 MCHC (RBC) [Mass/Vol] 32.8 g/dL 32-36 [facility] No Panel InformationOrdered By: Milana Garcia on 07-19-2023 Estimated GFR (MDRD) Amer 121 mL/min >60 [facility] Comment on above: GFR Calc Estimated GFR (MDRD) Non-Af Amer 100 mL/min >60 [facility] Comment on above: Non- GFR Calc Thyroid Stimulating Hormone (TSH) 1.07 uIU/mL 0.358-3.74 [facility] Platelets bldOrdered By: Yamel Garcia on 07-19-2023 Platelets (Bld) [#/Vol] 245 10*3/uL 150-450 [facility] Serum or plasma albumin alphonso urement (mass/volume)Ordered By: Milana Garcia on 07-19-2023 Albumin [Mass/Vol] 3.3 g/dL 3.2-5.0 [facility] Serum or plasma albumin/glob ulin mass ratioOrdered By: Milana Garcia on 07-19-2023 Albumin/Globulin [Mass ratio] 0.9 {ratio} 0.9-2.4 [facility] Serum or plasma calcium alphonso urement (mass/volume)Ordered By: Milana Garcia on 07-19-2023 Calcium [Mass/Vol] 8.4 mg/dL 8.5-10.1 [facility] Serum or plasma creatinine m easurement (mass/volume)Ordered By: Milana Garcia on 07-19-2023 Creatinine [Mass/Vol] 0.68 mg/dL 0.55-1.02 [facility] Comment on above: The validity of the calculated GFR & GFRAA in patients over 70 years has not been determined. Clinical correlation is essential. Serum or plasma folate measu rement (mass/volume)Ordered By: Milana Garcia on 07-19-2023 Folate [Mass/Vol] 58.30 ng/mL 3.1-55.4 [facility] Serum or plasma urea nitroge n measurement (mass/volume)Ordered By: Milana Garcia on 07-19-2023 Urea nitrogen [Mass/Vol] 7 mg/dL 7-18 [facility] Thin prep Papanicolaou smear with manual screeningOrdered By: Milana Garcia on 07-19-2023 Thin prep Papanicolaou smear with manual screening 19 U/L 15-37 [facility] Thin prep Papanicolaou smear with manual screening 7 5-15 [facility] No Panel InformationOrdered By: Dr. Jerry on 05-25-2023 Troponin I High Sensitivity 3 pg/mL 3.0-54.0 [facility] Comment on above: Please Note: [place] Units and Gender Specific Reference Ranges. For more information see Policy Stat Procedure [place] High Sensitivity Troponin (TNIH) and attachments. Absolute lymphocyte countOrd ered By: Dr. Jerry on 05-24-2023 Lymphocytes Auto (Unsp spec) [#/Vol] 3.25 10*3/uL 0.83-4.51 [facility] Basophil percentageOrdered B y: Dr. Jerry on 05-24-2023 Basophil percentage 0 SEEN /hpf 0-5 [facility] Basophils/100 WBC (Bld) 0.7 % 0-1 [facility] Bilirubin [Mass/Vol] 0.20 mg/dL 0.20-1.00 [facility] Comment on above: For patients on eltr ombopag therapy, use of Dimension [place] TBIL is not recommended. Chloride [Moles/Vol] 112 mmol/L 98-107 [facility] Eosinophils/100 WBC (Bld) 2.2 % 0-5 [facility] Glucose [Mass/Vol] 127 mg/dL 74-106 [facility] Comment on above: Fasting Glucose resu lt greater than or equal to 126 mg/dL suggests DIABETES MELLITUS per A.D.A. criteria. Neutrophils (Bld) [#/Vol] 2.9 10*3/uL 2.0-7.7 [facility] Neutrophils/100 WBC (Bld) 40.3 % 47-70 [facility] Potassium [Moles/Vol] 5.9 mmol/L 3.5-5.1 [facility] Comment on above: Moderate Hemolysis, Result may be falsely increased. Protein [Mass/Vol] 6.7 g/dL 6.4-8.2 [facility] Sodium [Moles/Vol] 138 mmol/L 136-145 [facility] WBC (Bld) [#/Vol] 7.2 10*3/uL 4.4-11.0 [facility] Beta hCG serum qualOrdered B y: Dr. Jerry on 05-24-2023 Beta HCG ( test) Ql Negative [facility] Bilirubin Test strip Ql (U)O rdered By: Dr. Jerry on 05-24-2023 Bilirubin Ql (U) Negative Negative [facility] Blood erythrocytes count (nu mber/volume)Ordered By: Dr. Jerry on 05-24-2023 RBC (Bld) [#/Vol] 3.88 10*6/uL 4.2-5.4 [facility] Blood hemoglobin measurement (mass/volume)Ordered By: Dr. Jerry on 05-24-2023 Hemoglobin (Bld) [Mass/Vol] 12.9 g/dL 12.0-15.0 [facility] Blood lymphocytes/100 leukoc ytesOrdered By: Dr. Jerry on 05-24-2023 Lymphocytes/100 WBC (Bld) 45.0 % 19-41 [facility] Blood monocytes/100 leukocyt esOrdered By: Dr. Jerry on 05-24-2023 Monocytes/100 WBC (Bld) 11.4 % 0-10 [facility] Blood platelet mean volumeOr dered By: Dr. Jerry on 05-24-2023 Platelet mean volume (Bld) [Entitic vol] 9.8 fL 6.2-12.0 [facility] Determination of erythrocyte mean corpuscular volume (MCV)Ordered By: Dr. Jerry on 05-24-2023 MCV (RBC) [Entitic vol] 100.0 fL 81-99 [facility] Direct bilirubinOrdered By: Dr. Jerry on 05-24-2023 Bilirubin.direct [Mass/Vol] mg/dL 0.00-0.30 [facility] Hematocrit Auto (Bld) [Volum e fraction]Ordered By: Dr. Jerry on 05-24-2023 Hematocrit (Bld) [Volume fraction] 38.8 % 37-47 [facility] Ketones Test strip Ql (U)Ord ered By: Dr. Jerry on 05-24-2023 Ketones Ql (U) Negative Negative [facility] - Chemistry and C hemistry - challengeOrdered By: Dr. Jerry on 05-24-2023 ALP [Catalytic activity/Vol] 57 U/L 45-117 [facility] ALT [Catalytic activity/Vol] 27 U/L 13-56 [facility] CO2 [Moles/Vol] 19.0 mmol/L 21.0-32.0 [facility] Globulin (S) [Mass/Vol] 3.8 g/dL 2.2-4.2 [facility] Lipase [Catalytic activity/Vol] 64 U/L 13-75 [facility] Comment on above: Please note:LIPASE r evised reference range effective 23. New Lipase methodology. Expected to produce lower values than the previous assay method. NEW Reference Range: 13 - 75 U/L Urea nitrogen/Creatinine [Mass ratio] 9.1 mg/mg 10-20 [facility] - Hematology and Cell countsOrdered By: Dr. Jerry on 05-24-2023 Erythrocyte distribution width (RBC) [Entitic vol] 46.2 fL 35.1-43.9 [facility] Erythrocyte distribution width (RBC) [Ratio] 12.6 % 11.6-14.6 [facility] Immature granulocytes/100 WBC (Bld) 0.400 % 0.0-0.9 [facility] Comment on above: IG% - Immature Granu locytes (promyelocytes, myelocytes and metamyelocytes) > 1% indicates that a LEFT SHIFT is Present. MCH (RBC) [Entitic mass] 33.2 pg 27.0-32.0 [facility] Nucleated RBC/100 WBC (Bld) [Ratio] 0 % 0-5 [facility] MCHC Auto (RBC) [Mass/Vol]Or dered By: Dr. Jerry on 05-24-2023 MCHC (RBC) [Mass/Vol] 33.2 g/dL 32-36 [facility] Mucus LM Ql (Urine sed)Order ed By: Dr. Jerry on 05-24-2023 Mucus Ql (Urine sed) 0 SEEN /hpf [facility] Nitrite Test strip Ql (U)Ord ered By: Dr. Jerry on 05-24-2023 Nitrite Ql (U) Negative Negative [facility] No Panel InformationOrdered By: Dr. Jerry on 05-24-2023 Estimated Creatinine Clearance Calc 45.99 ml/min [facility] Estimated GFR (MDRD) Amer 56 mL/min >60 [facility] Comment on above: GFR Calc Estimated GFR (MDRD) Non-Af Amer 46 mL/min >60 [facility] Comment on above: Non- GFR Calc Ethyl Alcohol Level 193.0 mg/dL [facility] Comment on above: The serum:whole bloo d ethanol ratio is approximately 1.14and varies slightly with hematocrit. Medical Alcohol reference interval and critical value innon-tolerant individuals; 50 - 100 Impairment 100 Intoxication 100 - 250 Severe Poisoning 250 - 400 Deep/possible fatal coma Platelets bldOrdered By: Dr. Jerry on 05-24-2023 Platelets (Bld) [#/Vol] 276 10*3/uL 150-450 [facility] Protein Test strip Ql (U)Ord ered By: Dr. Jerry on 05-24-2023 Protein Ql (U) Negative Negative [facility] Serum or plasma acetone alphonso urement (mass/volume)Ordered By: Dr. Jerry on 05-24-2023 Acetone [Mass/Vol] Negative NEG [facility] Serum or plasma albumin alphonso urement (mass/volume)Ordered By: Dr. Jerry on 05-24-2023 Albumin [Mass/Vol] 2.9 g/dL 3.2-5.0 [facility] Serum or plasma calcium alphonso urement (mass/volume)Ordered By: Dr. Jerry on 05-24-2023 Calcium [Mass/Vol] 7.5 mg/dL 8.5-10.1 [facility] Serum or plasma creatinine m easurement (mass/volume)Ordered By: Dr. Jerry on 05-24-2023 Creatinine [Mass/Vol] 1.32 mg/dL 0.55-1.02 [facility] Comment on above: The validity of the calculated GFR & GFRAA in patients over 70 years has not been determined. Clinical correlation is essential. Serum or plasma urea nitroge n measurement (mass/volume)Ordered By: Dr. Jerry on 05-24-2023 Urea nitrogen [Mass/Vol] 12 mg/dL 7-18 [facility] Squamous epithelial cells de tection in urine sediment by light microscopyOrdered By: Dr. Jerry on 05-24-2023 Epithelial cells.squamous LM Ql (Urine sed) 0 SEEN /hpf 5-10 [facility] Thin prep Papanicolaou smear with manual screeningOrdered By: Dr. Jerry on 05-24-2023 Thin prep Papanicolaou smear with manual screening 47 U/L 15-37 [facility] Comment on above: Moderate Hemolysis, Result may be falsely increased. Thin prep Papanicolaou smear with manual screening 7 5-15 [facility] Urine blood detectionOrdered By: Dr. Jerry on 05-24-2023 RBC Ql (U) Negative Negative [facility] RBC Ql (U) 0 SEEN /hpf 0-5 [facility] Urine clarityOrdered By: Dr. Jerry on 05-24-2023 Clarity (U) Clear Clear [facility] Urine color determinationOrd ered By: Dr. Jerry on 05-24-2023 Color (U) Yellow Yellow [facility] Urine glucose detectionOrder ed By: Dr. Jerry on 05-24-2023 Glucose Ql (U) 1000 mg/dl Normal [facility] Urine leukocyte esterase det ection by dipstickOrdered By: Dr. Jerry on 05-24-2023 Leukocyte esterase Test strip Ql (U) Negative Negative [facility] Urine pHOrdered By: Dr. Maximiliano morris on 05-24-2023 pH (U) 6.5 [pH] 5.0 - 8.0 [facility] Urine sediment bacteria coun t by microscopy (number/high power field)Ordered By: Dr. Jerry on 05-24-2023 Bacteria LM.HPF (Urine sed) [#/Area] 0 /[HPF] None Seen [facility] Urine specific gravity measu rementOrdered By: Dr. Jerry on 05-24-2023 Specific gravity (U) [Rel density] 1.005 1.002-1.030 [facility] Urobilinogen Auto test strip Ql (U)Ordered By: Dr. Jerry on 05-24-2023 Urobilinogen Ql (U) Normal mg/dl Normal [facility] Basophil percentageOrdered B y: Milana Garcia on 05-19-2023 Basophil percentage 2.6 mg/dL 2.5-4.9 [facility] Bilirubin [Mass/Vol] 0.30 mg/dL 0.20-1.00 [facility] Comment on above: For patients on eltr ombopag therapy, use of Dimension [place] TBIL is not recommended. Protein [Mass/Vol] 7.2 g/dL 6.4-8.2 [facility] Direct bilirubinOrdered By: Milana Garcia on 05-19-2023 Bilirubin.direct [Mass/Vol] 0.11 mg/dL 0.00-0.30 [facility] - Chemistry and C hemistry - challengeOrdered By: Milana Garcia on 05-19-2023 ALP [Catalytic activity/Vol] 69 U/L 45-117 [facility] ALT [Catalytic activity/Vol] 22 U/L 13-56 [facility] Cobalamin (Vitamin B12) [Mass/Vol] 361 pg/mL 211-911 [facility] Free T4 [Mass/Vol] 0.78 ng/dL 0.76-1.46 [facility] Globulin (S) [Mass/Vol] 3.8 g/dL 2.2-4.2 [facility] Magnesium [Mass/Vol] 1.8 mg/dL 1.6-2.6 [facility] No Panel InformationOrdered By: Milana Garcia on 05-19-2023 Thyroid Stimulating Hormone (TSH) 1.95 uIU/mL 0.358-3.74 [facility] Serum or plasma albumin alphonso urement (mass/volume)Ordered By: Milana Garcia on 05-19-2023 Albumin [Mass/Vol] 3.4 g/dL 3.2-5.0 [facility] Serum or plasma ferritin alexis surement (mass/volume)Ordered By: Milana Garcia on 05-19-2023 Ferritin [Mass/Vol] 69 ng/mL 8-252 [facility] Serum or plasma folate measu rement (mass/volume)Ordered By: Milana Garcia on 05-19-2023 Folate [Mass/Vol] 4.00 ng/mL 3.1-55.4 [facility] Thin prep Papanicolaou smear with manual screeningOrdered By: Milana Garcia on 05-19-2023 Thin prep Papanicolaou smear with manual screening 18 U/L 15-37 [facility] No Panel InformationOrdered By: Dr. Dyer on 05-05-2023 Troponin I High Sensitivity < 3 pg/mL 3.0-54.0 [facility] Comment on above: Please Note: [place] Units and Gender Specific Reference Ranges. For more information see Policy Stat Procedure [place] High Sensitivity Troponin (TNIH) and attachments. Absolute lymphocyte countOrd ered By: Dr. Dyer on 05-04-2023 Lymphocytes Auto (Unsp spec) [#/Vol] 3.17 10*3/uL 0.83-4.51 [facility] Basophil percentageOrdered B y: Dr. Dyer on 05-04-2023 Basophils/100 WBC (Bld) 0.4 % 0-1 [facility] Chloride [Moles/Vol] 105 mmol/L 98-107 [facility] Eosinophils/100 WBC (Bld) 2.7 % 0-5 [facility] Glucose [Mass/Vol] 103 mg/dL 74-106 [facility] Comment on above: Fasting Glucose resu lt from 100 to 125 mg/dL suggests IMPAIRED HOMEOSTASIS per A.D.A. criteria. Neutrophils (Bld) [#/Vol] 4.6 10*3/uL 2.0-7.7 [facility] Neutrophils/100 WBC (Bld) 51.3 % 47-70 [facility] Potassium [Moles/Vol] 3.4 mmol/L 3.5-5.1 [facility] Sodium [Moles/Vol] 138 mmol/L 136-145 [facility] WBC (Bld) [#/Vol] 8.9 10*3/uL 4.4-11.0 [facility] Blood erythrocytes count (nu mber/volume)Ordered By: Dr. Dyer on 05-04-2023 RBC (Bld) [#/Vol] 3.72 10*6/uL 4.2-5.4 [facility] Blood hemoglobin measurement (mass/volume)Ordered By: Dr. Dyer on 05-04-2023 Hemoglobin (Bld) [Mass/Vol] 12.1 g/dL 12.0-15.0 [facility] Blood lymphocytes/100 leukoc ytesOrdered By: Dr. Dyer on 05-04-2023 Lymphocytes/100 WBC (Bld) 35.6 % 19-41 [facility] Blood monocytes/100 leukocyt esOrdered By: Dr. Dyer on 05-04-2023 Monocytes/100 WBC (Bld) 9.4 % 0-10 [facility] Blood platelet mean volumeOr dered By: Dr. Dyer on 05-04-2023 Platelet mean volume (Bld) [Entitic vol] 9.4 fL 6.2-12.0 [facility] Determination of erythrocyte mean corpuscular volume (MCV)Ordered By: Dr. Dyer on 05-04-2023 MCV (RBC) [Entitic vol] 98.4 fL 81-99 [facility] Hematocrit Auto (Bld) [Volum e fraction]Ordered By: Dr. Dyer on 05-04-2023 Hematocrit (Bld) [Volume fraction] 36.6 % 37-47 [facility] - Chemistry and C hemistry - challengeOrdered By: Dr. Dyer on 05-04-2023 CO2 [Moles/Vol] 27.0 mmol/L 21.0-32.0 [facility] Urea nitrogen/Creatinine [Mass ratio] 19.2 mg/mg 10-20 [facility] - Hematology and Cell countsOrdered By: Dr. Dyer on 05-04-2023 Erythrocyte distribution width (RBC) [Entitic vol] 47.8 fL 35.1-43.9 [facility] Erythrocyte distribution width (RBC) [Ratio] 13.3 % 11.6-14.6 [facility] Immature granulocytes/100 WBC (Bld) 0.600 % 0.0-0.9 [facility] Comment on above: IG% - Immature Granu locytes (promyelocytes, myelocytes and metamyelocytes) > 1% indicates that a LEFT SHIFT is Present. MCH (RBC) [Entitic mass] 32.5 pg 27.0-32.0 [facility] Nucleated RBC/100 WBC (Bld) [Ratio] 0 % 0-5 [facility] MCHC Auto (RBC) [Mass/Vol]Or dered By: Dr. Dyer on 05-04-2023 MCHC (RBC) [Mass/Vol] 33.1 g/dL 32-36 [facility] No Panel InformationOrdered By: Dr. Dyer on 05-04-2023 Estimated Creatinine Clearance Calc 83.15 ml/min [facility] Estimated GFR (MDRD) Amer 110 mL/min >60 [facility] Comment on above: GFR Calc Estimated GFR (MDRD) Non-Af Amer 91 mL/min >60 [facility] Comment on above: Non- GFR Calc Platelets bldOrdered By: Dr. Dyer on 05-04-2023 Platelets (Bld) [#/Vol] 274 10*3/uL 150-450 [facility] Serum or plasma calcium alphonso urement (mass/volume)Ordered By: Dr. Dyer on 05-04-2023 Calcium [Mass/Vol] 8.6 mg/dL 8.5-10.1 [facility] Serum or plasma creatinine m easurement (mass/volume)Ordered By: Dr. Dyer on 05-04-2023 Creatinine [Mass/Vol] 0.73 mg/dL 0.55-1.02 [facility] Comment on above: The validity of the calculated GFR & GFRAA in patients over 70 years has not been determined. Clinical correlation is essential. Serum or plasma urea nitroge n measurement (mass/volume)Ordered By: Dr. Dyer on 05-04-2023 Urea nitrogen [Mass/Vol] 14 mg/dL 7-18 [facility] Thin prep Papanicolaou smear with manual screeningOrdered By: Dr. Dyer on 05-04-2023 Thin prep Papanicolaou smear with manual screening 6 5-15 [facility] - Microbiology an d Antimicrobial susceptibilityOrdered By: Dr. Jacobs on 04-15-2023 Bacteria identified Cx Nom (Bld) No growth in 5 days. [facility] Absolute lymphocyte countOrd ered By: Dr. Kiran on 04-11-2023 Lymphocytes Auto (Unsp spec) [#/Vol] 2.75 10*3/uL 0.83-4.51 [facility] Basophil percentageOrdered B y: Dr. Kiran on 04-11-2023 Basophils/100 WBC (Bld) 0.3 % 0-1 [facility] Chloride [Moles/Vol] 105 mmol/L 98-107 [facility] Eosinophils/100 WBC (Bld) 0.7 % 0-5 [facility] Glucose [Mass/Vol] 143 mg/dL 74-106 [facility] Comment on above: Fasting Glucose resu lt greater than or equal to 126 mg/dL suggests DIABETES MELLITUS per A.D.A. criteria. Neutrophils (Bld) [#/Vol] 7.8 10*3/uL 2.0-7.7 [facility] Neutrophils/100 WBC (Bld) 67.1 % 47-70 [facility] Potassium [Moles/Vol] 4.1 mmol/L 3.5-5.1 [facility] Sodium [Moles/Vol] 137 mmol/L 136-145 [facility] WBC (Bld) [#/Vol] 11.6 10*3/uL 4.4-11.0 [facility] Basophil percentageOrdered B y: Dr. Johnson on 04-11-2023 Lactate [Moles/Vol] 0.6 mmol/L 0.4-2.0 [facility] Blood erythrocytes count (nu mber/volume)Ordered By: Dr. Kiran on 04-11-2023 RBC (Bld) [#/Vol] 3.87 10*6/uL 4.2-5.4 [facility] Blood hemoglobin measurement (mass/volume)Ordered By: Dr. Kiran on 04-11-2023 Hemoglobin (Bld) [Mass/Vol] 12.6 g/dL 12.0-15.0 [facility] Blood lymphocytes/100 leukoc ytesOrdered By: Dr. Kiran on 04-11-2023 Lymphocytes/100 WBC (Bld) 23.8 % 19-41 [facility] Blood monocytes/100 leukocyt esOrdered By: Dr. Kiran on 04-11-2023 Monocytes/100 WBC (Bld) 7.8 % 0-10 [facility] Blood platelet mean volumeOr dered By: Dr. Kiran on 04-11-2023 Platelet mean volume (Bld) [Entitic vol] 9.7 fL 6.2-12.0 [facility] Determination of erythrocyte mean corpuscular volume (MCV)Ordered By: Dr. Kiran on 04-11-2023 MCV (RBC) [Entitic vol] 100.5 fL 81-99 [facility] Glucose Glucometer (BldC) [M ass/Vol]Ordered By: Dr. Johnson on 04-11-2023 Glucose [Mass/Vol] 95 mg/dL 74-106 [facility] Comment on above: MANAGEMENT OF PATIEN T CARE PER NURSING PROTOCOL Hematocrit Auto (Bld) [Volum e fraction]Ordered By: Dr. Kiran on 04-11-2023 Hematocrit (Bld) [Volume fraction] 38.9 % 37-47 [facility] - Chemistry and C hemistry - challengeOrdered By: Dr. Kiran on 04-11-2023 CO2 [Moles/Vol] 24.0 mmol/L 21.0-32.0 [facility] Urea nitrogen/Creatinine [Mass ratio] 23.2 mg/mg 10-20 [facility] - Hematology and Cell countsOrdered By: Dr. Kiran on 04-11-2023 Erythrocyte distribution width (RBC) [Entitic vol] 47.8 fL 35.1-43.9 [facility] Erythrocyte distribution width (RBC) [Ratio] 13.1 % 11.6-14.6 [facility] Immature granulocytes/100 WBC (Bld) 0.300 % 0.0-0.9 [facility] Comment on above: IG% - Immature Granu locytes (promyelocytes, myelocytes and metamyelocytes) > 1% indicates that a LEFT SHIFT is Present. MCH (RBC) [Entitic mass] 32.6 pg 27.0-32.0 [facility] Nucleated RBC/100 WBC (Bld) [Ratio] 0 % 0-5 [facility] MCHC Auto (RBC) [Mass/Vol]Or dered By: Dr. Kiran on 04-11-2023 MCHC (RBC) [Mass/Vol] 32.4 g/dL 32-36 [facility] No Panel InformationOrdered By: Dr. Kiran on 04-11-2023 Estimated Creatinine Clearance Calc 74.03 ml/min [facility] Estimated GFR (MDRD) Amer 97 mL/min >60 [facility] Comment on above: GFR Calc Estimated GFR (MDRD) Non-Af Amer 80 mL/min >60 [facility] Comment on above: Non- GFR Calc Platelets bldOrdered By: Dr. Kiran on 04-11-2023 Platelets (Bld) [#/Vol] 246 10*3/uL 150-450 [facility] Serum or plasma calcium alphonso urement (mass/volume)Ordered By: Dr. Kiran on 04-11-2023 Calcium [Mass/Vol] 8.8 mg/dL 8.5-10.1 [facility] Serum or plasma creatinine m easurement (mass/volume)Ordered By: Dr. Kiran on 04-11-2023 Creatinine [Mass/Vol] 0.82 mg/dL 0.55-1.02 [facility] Comment on above: The validity of the calculated GFR & GFRAA in patients over 70 years has not been determined. Clinical correlation is essential. Serum or plasma urea nitroge n measurement (mass/volume)Ordered By: Dr. Kiran on 04-11-2023 Urea nitrogen [Mass/Vol] 19 mg/dL 7-18 [facility] Thin prep Papanicolaou smear with manual screeningOrdered By: Dr. Kiran on 04-11-2023 Thin prep Papanicolaou smear with manual screening 8 5-15 [facility] Basophil percentageOrdered B y: Dr. Jacobs on 04-10-2023 Chloride [Moles/Vol] 110 mmol/L 98-107 [facility] Glucose [Mass/Vol] 160 mg/dL 74-106 [facility] Comment on above: Fasting Glucose resu lt greater than or equal to 126 mg/dL suggests DIABETES MELLITUS per A.D.A. criteria. Lactate [Moles/Vol] 4.2 mmol/L 0.4-2.0 [facility] Comment on above: Critical Result(s) C alled at: 02:41:04 04/10/2023 by: [employer]. Results read back by same. Potassium [Moles/Vol] 4.8 mmol/L 3.5-5.1 [facility] Sodium [Moles/Vol] 140 mmol/L 136-145 [facility] Basophil percentage 0 SEEN /hpf 0-5 [facility] Bilirubin Test strip Ql (U)O rdered By: Dr. Jacobs on 04-10-2023 Bilirubin Ql (U) Negative Negative [facility] HCO3 (BldA) [Moles/Vol]Order ed By: Dr. Jacobs on 04-10-2023 HCO3 (Bld) [Moles/Vol] 20 mmol/L 22-26 [facility] Ketones Test strip Ql (U)Ord ered By: Dr. Jacobs on 04-10-2023 Ketones Ql (U) Negative Negative [facility] - Chemistry and C hemistry - challengeOrdered By: Dr. Jacobs on 04-10-2023 CO2 [Moles/Vol] 19.0 mmol/L 21.0-32.0 [facility] Urea nitrogen/Creatinine [Mass ratio] 15.8 mg/mg 10-20 [facility] CO2 [Moles/Vol] 21 mmol/L 23-33 [facility] - Microbiology an d Antimicrobial susceptibilityOrdered By: David Jaocbs on 04-10-2023 Bacteria identified Cx Nom (Bld) No growth in 5 days. [facility] Mucus LM Ql (Urine sed)Order ed By: Dr. Jacobs on 04-10-2023 Mucus Ql (Urine sed) 0 SEEN /hpf [facility] Nitrite Test strip Ql (U)Ord ered By: Dr. Jacobs on 04-10-2023 Nitrite Ql (U) Negative Negative [facility] No Panel InformationOrdered By: Dr. Jacobs on 04-10-2023 Estimated Creatinine Clearance Calc 60.10 ml/min [facility] Estimated GFR (MDRD) Amer 76 mL/min >60 [facility] Comment on above: GFR Calc Estimated GFR (MDRD) Non-Af Amer 63 mL/min >60 [facility] Comment on above: Non- GFR Calc Troponin I High Sensitivity < 3 pg/mL 3.0-54.0 [facility] Comment on above: Please Note: [place] t Units and Gender Specific Reference Ranges. For more information see Policy Stat Procedure [place] High Sensitivity Troponin (TNIH) and attachments. Bed Mix Venous Bld PCO2 at Pat Temp 40.5 mmHg 41-51 [facility] Blood Gas Specimen Type GELACIO [facility] Oxygen Delivery Device Room Air [facility] Venous Blood Base Excess -7 mmol/L -1.0-3.5 [facility] No Panel InformationOrdered By: Dr. Kiran on 04-10-2023 Troponin I High Sensitivity < 3 pg/mL 3.0-54.0 [facility] Comment on above: Please Note: [place] t Units and Gender Specific Reference Ranges. For more information see Policy Stat Procedure [place] High Sensitivity Troponin (TNIH) and attachments. PO2 venousOrdered By: Dr. Jose wood on 04-10-2023 Oxygen (BldV) [Partial pressure] 54 mm[Hg] 25-40 [facility] Protein Test strip Ql (U)Ord ered By: Dr. Jacobs on 04-10-2023 Protein Ql (U) Negative Negative [facility] Serum or plasma acetone alphonso urement (mass/volume)Ordered By: Dr. Jacobs on 04-10-2023 Acetone [Mass/Vol] Negative NEG [facility] Serum or plasma calcium alphonso urement (mass/volume)Ordered By: Dr. Jacobs on 04-10-2023 Calcium [Mass/Vol] 7.3 mg/dL 8.5-10.1 [facility] Serum or plasma creatinine m easurement (mass/volume)Ordered By: Dr. Jacobs on 04-10-2023 Creatinine [Mass/Vol] 1.01 mg/dL 0.55-1.02 [facility] Comment on above: The validity of the calculated GFR & GFRAA in patients over 70 years has not been determined. Clinical correlation is essential. Serum or plasma urea nitroge n measurement (mass/volume)Ordered By: Dr. Jacobs on 04-10-2023 Urea nitrogen [Mass/Vol] 16 mg/dL 7-18 [facility] Squamous epithelial cells de tection in urine sediment by light microscopyOrdered By: Dr. Jacobs on 04-10-2023 Epithelial cells.squamous LM Ql (Urine sed) 0 SEEN /hpf 5-10 [facility] Thin prep Papanicolaou smear with manual screeningOrdered By: Dr. Jacobs on 04-10-2023 Thin prep Papanicolaou smear with manual screening 11 -15 [facility] Urine blood detectionOrdered By: Dr. Jacobs on 04-10-2023 RBC Ql (U) Negative Negative [facility] RBC Ql (U) 0 SEEN /hpf 0-5 [facility] Urine clarityOrdered By: Dr. Jacobs on 04-10-2023 Clarity (U) Clear Clear [facility] Urine color determinationOrd ered By: Dr. Jacobs on 04-10-2023 Color (U) Yellow Yellow [facility] Urine glucose detectionOrder ed By: Dr. Jacobs on 04-10-2023 Glucose Ql (U) 1000 mg/dl Normal [facility] Urine leukocyte esterase det ection by dipstickOrdered By: Dr. Jacobs on 04-10-2023 Leukocyte esterase Test strip Ql (U) Negative Negative [facility] Urine pHOrdered By: Dr. Caren garza on 04-10-2023 pH (U) 6.5 [pH] 5.0 - 8.0 [facility] Urine sediment bacteria coun t by microscopy (number/high power field)Ordered By: Dr. Jacobs on 04-10-2023 Bacteria LM.HPF (Urine sed) [#/Area] 0 /[HPF] None Seen [facility] Urine specific gravity measu rementOrdered By: Dr. Jacobs on 04-10-2023 Specific gravity (U) [Rel density] 1.010 1.002-1.030 [facility] Urobilinogen Auto test strip Ql (U)Ordered By: Dr. Jacobs on 04-10-2023 Urobilinogen Ql (U) Normal mg/dl Normal [facility] Vital signsOrdered By: Dr. Del mackay on 04-10-2023 Oxygen saturation in Blood 84 % 50-70 [facility] pH measurementOrdered By: Dr Jael Jacobs on 04-10-2023 pH (Unsp spec) 7.29 [pH] 7.32-7.42 [facility] Absolute lymphocyte countOrd ered By: Dr. Jacobs on 04-09-2023 Lymphocytes Auto (Unsp spec) [#/Vol] 0.91 10*3/uL 0.83-4.51 [facility] Basophil percentageOrdered B y: Dr. Jacobs on 04-09-2023 Basophils/100 WBC (Bld) 0.2 % 0-1 [facility] Eosinophils/100 WBC (Bld) 0.4 % 0-5 [facility] Neutrophils (Bld) [#/Vol] 6.8 10*3/uL 2.0-7.7 [facility] Neutrophils/100 WBC (Bld) 85.1 % 47-70 [facility] WBC (Bld) [#/Vol] 8.0 10*3/uL 4.4-11.0 [facility] Blood erythrocytes count (nu mber/volume)Ordered By: Dr. Jacobs on 04-09-2023 RBC (Bld) [#/Vol] 3.87 10*6/uL 4.2-5.4 [facility] Blood hemoglobin measurement (mass/volume)Ordered By: Dr. Jacobs on 04-09-2023 Hemoglobin (Bld) [Mass/Vol] 12.5 g/dL 12.0-15.0 [facility] Blood lymphocytes/100 leukoc ytesOrdered By: Dr. Jacobs on 04-09-2023 Lymphocytes/100 WBC (Bld) 11.3 % 19-41 [facility] Blood monocytes/100 leukocyt esOrdered By: Dr. Jacobs on 04-09-2023 Monocytes/100 WBC (Bld) 1.6 % 0-10 [facility] Blood platelet mean volumeOr dered By: Dr. Jacobs on 04-09-2023 Platelet mean volume (Bld) [Entitic vol] 10.0 fL 6.2-12.0 [facility] Determination of erythrocyte mean corpuscular volume (MCV)Ordered By: Dr. Jacobs on 04-09-2023 MCV (RBC) [Entitic vol] 99.5 fL 81-99 [facility] Hematocrit Auto (Bld) [Volum e fraction]Ordered By: Dr. Jacobs on 04-09-2023 Hematocrit (Bld) [Volume fraction] 38.5 % 37-47 [facility] - Hematology and Cell countsOrdered By: Dr. Jacobs on 04-09-2023 Erythrocyte distribution width (RBC) [Entitic vol] 47.4 fL 35.1-43.9 [facility] Erythrocyte distribution width (RBC) [Ratio] 13.0 % 11.6-14.6 [facility] Immature granulocytes/100 WBC (Bld) 1.400 % 0.0-0.9 [facility] Comment on above: IG% - Immature Granu locytes (promyelocytes, myelocytes and metamyelocytes) > 1% indicates that a LEFT SHIFT is Present. MCH (RBC) [Entitic mass] 32.3 pg 27.0-32.0 [facility] Nucleated RBC/100 WBC (Bld) [Ratio] 0 % 0-5 [facility] MCHC Auto (RBC) [Mass/Vol]Or dered By: Dr. Jacobs on 04-09-2023 MCHC (RBC) [Mass/Vol] 32.5 g/dL 32-36 [facility] No Panel InformationOrdered By: Dr. Jacobs on 04-09-2023 D-Dimer Quantitative (PE/DVT) < 0.27 FEU/ug/m 0.27-0.49 [facility] Comment on above: NORMAL D-Dimer level (<0.50) indicates no DVT or PE. Platelets bldOrdered By: Dr. Jacobs on 04-09-2023 Platelets (Bld) [#/Vol] 298 10*3/uL 150-450 [facility] Absolute lymphocyte countOrd ered By: Dr. Gaviria on 03-22-2023 Lymphocytes Auto (Unsp spec) [#/Vol] 2.49 10*3/uL 0.83-4.51 [facility] Amorphous sediment detection in urine sediment by light microscopyOrdered By: Dr. Gaviria on 03-22-2023 Amorphous sediment LM Ql (Urine sed) 1+ URATE [facility] Basophil percentageOrdered B y: Dr. Gaviria on 03-22-2023 Basophil percentage 5-10 SEEN /hpf 0-5 [facility] Basophils/100 WBC (Bld) 0.5 % 0-1 [facility] Bilirubin [Mass/Vol] 0.30 mg/dL 0.20-1.00 [facility] Comment on above: For patients on eltr ombopag therapy, use of Dimension [place] TBIL is not recommended. Chloride [Moles/Vol] 105 mmol/L 98-107 [facility] Eosinophils/100 WBC (Bld) 2.0 % 0-5 [facility] Glucose [Mass/Vol] 146 mg/dL 74-106 [facility] Comment on above: Fasting Glucose resu lt greater than or equal to 126 mg/dL suggests DIABETES MELLITUS per A.D.A. criteria. Lactate [Moles/Vol] 1.4 mmol/L 0.4-2.0 [facility] Neutrophils (Bld) [#/Vol] 7.1 10*3/uL 2.0-7.7 [facility] Neutrophils/100 WBC (Bld) 64.4 % 47-70 [facility] Potassium [Moles/Vol] 4.4 mmol/L 3.5-5.1 [facility] Protein [Mass/Vol] 7.7 g/dL 6.4-8.2 [facility] Sodium [Moles/Vol] 133 mmol/L 136-145 [facility] WBC (Bld) [#/Vol] 11.0 10*3/uL 4.4-11.0 [facility] Bilirubin Test strip Ql (U)O rdered By: Dr. Gaviria on 03-22-2023 Bilirubin Ql (U) Negative Negative [facility] Blood erythrocytes count (nu mber/volume)Ordered By: Dr. Gaviria on 03-22-2023 RBC (Bld) [#/Vol] 4.25 10*6/uL 4.2-5.4 [facility] Blood hemoglobin measurement (mass/volume)Ordered By: Dr. Gaviria on 03-22-2023 Hemoglobin (Bld) [Mass/Vol] 13.6 g/dL 12.0-15.0 [facility] Blood lymphocytes/100 leukoc ytesOrdered By: Dr. Gaviria on 03-22-2023 Lymphocytes/100 WBC (Bld) 22.7 % 19-41 [facility] Blood monocytes/100 leukocyt esOrdered By: Dr. Gaviria on 03-22-2023 Monocytes/100 WBC (Bld) 9.9 % 0-10 [facility] Blood platelet mean volumeOr dered By: Dr. Gaviria on 03-22-2023 Platelet mean volume (Bld) [Entitic vol] 9.7 fL 6.2-12.0 [facility] Determination of erythrocyte mean corpuscular volume (MCV)Ordered By: Dr. Gaviria on 03-22-2023 MCV (RBC) [Entitic vol] 97.6 fL 81-99 [facility] Hematocrit Auto (Bld) [Volum e fraction]Ordered By: Dr. Gaviria on 03-22-2023 Hematocrit (Bld) [Volume fraction] 41.5 % 37-47 [facility] Ketones Test strip Ql (U)Ord ered By: Dr. Gaviria on 03-22-2023 Ketones Ql (U) Negative Negative [facility] - Chemistry and C hemistry - challengeOrdered By: Dr. Gaviria on 03-22-2023 ALP [Catalytic activity/Vol] 71 U/L 45-117 [facility] ALT [Catalytic activity/Vol] 33 U/L 13-56 [facility] CO2 [Moles/Vol] 24.0 mmol/L 21.0-32.0 [facility] Globulin (S) [Mass/Vol] 3.7 g/dL 2.2-4.2 [facility] Urea nitrogen/Creatinine [Mass ratio] 10.8 mg/mg 10-20 [facility] - Hematology and Cell countsOrdered By: Dr. Gaviria on 03-22-2023 Erythrocyte distribution width (RBC) [Entitic vol] 46.9 fL 35.1-43.9 [facility] Erythrocyte distribution width (RBC) [Ratio] 13.1 % 11.6-14.6 [facility] Immature granulocytes/100 WBC (Bld) 0.500 % 0.0-0.9 [facility] Comment on above: IG% - Immature Granu locytes (promyelocytes, myelocytes and metamyelocytes) > 1% indicates that a LEFT SHIFT is Present. MCH (RBC) [Entitic mass] 32.0 pg 27.0-32.0 [facility] Nucleated RBC/100 WBC (Bld) [Ratio] 0 % 0-5 [facility] MCHC Auto (RBC) [Mass/Vol]Or dered By: Dr. Gaviria on 03-22-2023 MCHC (RBC) [Mass/Vol] 32.8 g/dL 32-36 [facility] Mucus LM Ql (Urine sed)Order ed By: Dr. Gaviria on 03-22-2023 Mucus Ql (Urine sed) 0 SEEN /hpf [facility] Nitrite Test strip Ql (U)Ord ered By: Dr. Gaviria on 03-22-2023 Nitrite Ql (U) Negative Negative [facility] No Panel InformationOrdered By: Dr. Gaviria on 03-22-2023 Estimated Creatinine Clearance Calc 36.74 ml/min [facility] Estimated GFR (MDRD) Amer 43 mL/min >60 [facility] Comment on above: GFR Calc Estimated GFR (MDRD) Non-Af Amer 35 mL/min >60 [facility] Comment on above: Non- GFR Calc Platelets bldOrdered By: Dr. Gaviria on 03-22-2023 Platelets (Bld) [#/Vol] 316 10*3/uL 150-450 [facility] Protein Test strip Ql (U)Ord ered By: Dr. Gaviria on 03-22-2023 Protein Ql (U) Negative Negative [facility] Serum or plasma albumin alphonso urement (mass/volume)Ordered By: Dr. Gaviria on 03-22-2023 Albumin [Mass/Vol] 4.0 g/dL 3.2-5.0 [facility] Serum or plasma albumin/glob ulin mass ratioOrdered By: Dr. Gaviria on 03-22-2023 Albumin/Globulin [Mass ratio] 1.1 {ratio} 0.9-2.4 [facility] Serum or plasma calcium alphonso urement (mass/volume)Ordered By: Dr. Gaviria on 03-22-2023 Calcium [Mass/Vol] 8.9 mg/dL 8.5-10.1 [facility] Serum or plasma creatinine m easurement (mass/volume)Ordered By: Dr. Gaviria on 03-22-2023 Creatinine [Mass/Vol] 1.67 mg/dL 0.55-1.02 [facility] Comment on above: The validity of the calculated GFR & GFRAA in patients over 70 years has not been determined. Clinical correlation is essential. Serum or plasma urea nitroge n measurement (mass/volume)Ordered By: Dr. Gaviria on 03-22-2023 Urea nitrogen [Mass/Vol] 18 mg/dL 7-18 [facility] Squamous epithelial cells de tection in urine sediment by light microscopyOrdered By: Dr. Gaviria on 03-22-2023 Epithelial cells.squamous LM Ql (Urine sed) 0-5 SEEN /hpf 5-10 [facility] Thin prep Papanicolaou smear with manual screeningOrdered By: Dr. Gaviria on 03-22-2023 Thin prep Papanicolaou smear with manual screening 20 U/L 15-37 [facility] Thin prep Papanicolaou smear with manual screening 4 5-15 [facility] Urine blood detectionOrdered By: Dr. Gaviria on 03-22-2023 RBC Ql (U) Negative Negative [facility] RBC Ql (U) 0 SEEN /hpf 0-5 [facility] Urine clarityOrdered By: Dr. Gaviria on 03-22-2023 Clarity (U) Sl. Cloudy Clear [facility] Urine color determinationOrd ered By: Dr. Gaviria on 03-22-2023 Color (U) Yellow Yellow [facility] Urine glucose detectionOrder ed By: Dr. Gaviria on 03-22-2023 Glucose Ql (U) 1000 mg/dl Normal [facility] Urine leukocyte esterase det ection by dipstickOrdered By: Dr. Gaviria on 03-22-2023 Leukocyte esterase Test strip Ql (U) 100 /ul Negative [facility] Urine pHOrdered By: Dr. Shae ruelas on 03-22-2023 pH (U) 6.5 [pH] 5.0 - 8.0 [facility] Urine sediment bacteria coun t by microscopy (number/high power field)Ordered By: Dr. Gaviria on 03-22-2023 Bacteria LM.HPF (Urine sed) [#/Area] 0 /[HPF] None Seen [facility] Urine specific gravity measu rementOrdered By: Dr. Gaviria on 03-22-2023 Specific gravity (U) [Rel density] 1.005 1.002-1.030 [facility] Urobilinogen Auto test strip Ql (U)Ordered By: Dr. Gaviria on 03-22-2023 Urobilinogen Ql (U) Normal mg/dl Normal [facility] - Microbiology an d Antimicrobial susceptibilityon 02-12-2023 SARS-CoV-2 (COVID-19) RNA ALLEY+probe Ql (Unsp spec) Not detected [facility] No Panel Informationon 02-12 Influenza Types A,B Rapid (Clinic) Not detected [facility] Absolute lymphocyte countOrd ered By: Dr. Jacobs on 01-21-2023 Lymphocytes Auto (Unsp spec) [#/Vol] 2.33 10*3/uL 0.83-4.51 [facility] Basophil percentageOrdered B y: Dr. Jacobs on 01-21-2023 Basophils/100 WBC (Bld) 0.5 % 0-1 [facility] Chloride [Moles/Vol] 103 mmol/L 98-107 [facility] Eosinophils/100 WBC (Bld) 2.6 % 0-5 [facility] Glucose [Mass/Vol] 262 mg/dL 74-106 [facility] Comment on above: Glucose result great er than or equal to 200 mg/dLsuggests DIABETES MELLITUS per A.D.A. criteria. Neutrophils (Bld) [#/Vol] 4.7 10*3/uL 2.0-7.7 [facility] Neutrophils/100 WBC (Bld) 59.7 % 47-70 [facility] Potassium [Moles/Vol] 3.6 mmol/L 3.5-5.1 [facility] Sodium [Moles/Vol] 138 mmol/L 136-145 [facility] WBC (Bld) [#/Vol] 7.9 10*3/uL 4.4-11.0 [facility] Blood erythrocytes count (nu mber/volume)Ordered By: Dr. Jacobs on 01-21-2023 RBC (Bld) [#/Vol] 4.32 10*6/uL 4.2-5.4 [facility] Blood hemoglobin measurement (mass/volume)Ordered By: Dr. Jacobs on 01-21-2023 Hemoglobin (Bld) [Mass/Vol] 13.8 g/dL 12.0-15.0 [facility] Blood lymphocytes/100 leukoc ytesOrdered By: Dr. Jacobs on 01-21-2023 Lymphocytes/100 WBC (Bld) 29.3 % 19-41 [facility] Blood monocytes/100 leukocyt esOrdered By: Dr. Jacobs on 01-21-2023 Monocytes/100 WBC (Bld) 7.6 % 0-10 [facility] Blood platelet mean volumeOr dered By: Dr. Jacobs on 01-21-2023 Platelet mean volume (Bld) [Entitic vol] 9.8 fL 6.2-12.0 [facility] Determination of erythrocyte mean corpuscular volume (MCV)Ordered By: Dr. Jacobs on 01-21-2023 MCV (RBC) [Entitic vol] 95.8 fL 81-99 [facility] Hematocrit Auto (Bld) [Volum e fraction]Ordered By: Dr. Jacobs on 01-21-2023 Hematocrit (Bld) [Volume fraction] 41.4 % 37-47 [facility] - Chemistry and C hemistry - challengeOrdered By: Dr. Jacobs on 01-21-2023 CO2 [Moles/Vol] 27.0 mmol/L 21.0-32.0 [facility] Urea nitrogen/Creatinine [Mass ratio] 11.8 mg/mg 10-20 [facility] - Hematology and Cell countsOrdered By: Dr. Jacobs on 01-21-2023 Erythrocyte distribution width (RBC) [Entitic vol] 44.4 fL 35.1-43.9 [facility] Erythrocyte distribution width (RBC) [Ratio] 12.7 % 11.6-14.6 [facility] Immature granulocytes/100 WBC (Bld) 0.300 % 0.0-0.9 [facility] Comment on above: IG% - Immature Granu locytes (promyelocytes, myelocytes and metamyelocytes) > 1% indicates that a LEFT SHIFT is Present. MCH (RBC) [Entitic mass] 31.9 pg 27.0-32.0 [facility] Nucleated RBC/100 WBC (Bld) [Ratio] 0 % 0-5 [facility] MCHC Auto (RBC) [Mass/Vol]Or dered By: Dr. Jacobs on 01-21-2023 MCHC (RBC) [Mass/Vol] 33.3 g/dL 32-36 [facility] No Panel InformationOrdered By: Dr. Jacobs on 01-21-2023 Troponin I High Sensitivity < 3 pg/mL 3.0-54.0 [facility] Comment on above: Please Note: [place] t Units and Gender Specific Reference Ranges. For more information see Policy Stat Procedure [place] High Sensitivity Troponin (TNIH) and attachments. D-Dimer Quantitative (PE/DVT) < 0.27 FEU/ug/m 0.27-0.49 [facility] Comment on above: NORMAL D-Dimer level (<0.50) indicates no DVT or PE. Estimated Creatinine Clearance Calc 65.97 ml/min [facility] Estimated GFR (MDRD) Amer 83 mL/min >60 [facility] Comment on above: GFR Calc Estimated GFR (MDRD) Non-Af Amer 69 mL/min >60 [facility] Comment on above: Non- GFR Calc Platelets bldOrdered By: Dr. Jacobs on 01-21-2023 Platelets (Bld) [#/Vol] 314 10*3/uL 150-450 [facility] Serum or plasma calcium alphonso urement (mass/volume)Ordered By: Dr. Jacobs on 01-21-2023 Calcium [Mass/Vol] 8.9 mg/dL 8.5-10.1 [facility] Serum or plasma creatinine m easurement (mass/volume)Ordered By: Dr. Jacobs on 01-21-2023 Creatinine [Mass/Vol] 0.93 mg/dL 0.55-1.02 [facility] Comment on above: The validity of the calculated GFR & GFRAA in patients over 70 years has not been determined. Clinical correlation is essential. Serum or plasma urea nitroge n measurement (mass/volume)Ordered By: Dr. Jacobs on 01-21-2023 Urea nitrogen [Mass/Vol] 11 mg/dL 7-18 [facility] Thin prep Papanicolaou smear with manual screeningOrdered By: Dr. Jacobs on 01-21-2023 Thin prep Papanicolaou smear with manual screening 8 5-15 [facility] Absolute lymphocyte countOrd ered By: Dr. Kay on 11-19-2022 Lymphocytes Auto (Unsp spec) [#/Vol] 2.69 10*3/uL 0.83-4.51 [facility] Basophil percentageOrdered B y: Dr. Kay on 11-19-2022 Basophils/100 WBC (Bld) 0.4 % 0-1 [facility] Chloride [Moles/Vol] 104 mmol/L 98-107 [facility] Eosinophils/100 WBC (Bld) 2.4 % 0-5 [facility] Glucose [Mass/Vol] 194 mg/dL 74-106 [facility] Comment on above: Fasting Glucose resu lt greater than or equal to 126 mg/dL suggests DIABETES MELLITUS per A.D.A. criteria. Neutrophils (Bld) [#/Vol] 1.7 10*3/uL 2.0-7.7 [facility] Neutrophils/100 WBC (Bld) 33.7 % 47-70 [facility] Potassium [Moles/Vol] 3.4 mmol/L 3.5-5.1 [facility] Sodium [Moles/Vol] 138 mmol/L 136-145 [facility] WBC (Bld) [#/Vol] 5.1 10*3/uL 4.4-11.0 [facility] Basophil percentageOrdered B y: Dr. Piña on 11-19-2022 Cholesterol [Mass/Vol] 144 mg/dL <200 [facility] Comment on above: <200 mg/dL Desirable 200-240 mg/dL Borderline >240 mg/dL High Risk Triglyceride [Mass/Vol] 227 mg/dL <199 [facility] Comment on above: The drugs N-Acetylcy steine and Metamizole may falsely depress this assay.Serum Triglycerides Reference Interval Normal <150 mg/dL Borderline high 150 - 199 mg/dL High 200 - 499 mg/dL Very High > or = 500 mg/dL Beta hCG serum qualOrdered B y: Dr. Piña on 11-19-2022 Beta HCG ( test) Ql Negative [facility] Blood erythrocytes count (nu mber/volume)Ordered By: Dr. Kay on 11-19-2022 RBC (Bld) [#/Vol] 3.74 10*6/uL 4.2-5.4 [facility] Blood hemoglobin measurement (mass/volume)Ordered By: Dr. Kay on 11-19-2022 Hemoglobin (Bld) [Mass/Vol] 12.0 g/dL 12.0-15.0 [facility] Blood lymphocytes/100 leukoc ytesOrdered By: Dr. Kay on 11-19-2022 Lymphocytes/100 WBC (Bld) 52.7 % 19-41 [facility] Blood monocytes/100 leukocyt esOrdered By: Dr. Kay on 11-19-2022 Monocytes/100 WBC (Bld) 10.6 % 0-10 [facility] Blood platelet mean volumeOr dered By: Dr. Kay on 11-19-2022 Platelet mean volume (Bld) [Entitic vol] 9.5 fL 6.2-12.0 [facility] Determination of erythrocyte mean corpuscular volume (MCV)Ordered By: Dr. Kay on 11-19-2022 MCV (RBC) [Entitic vol] 92.2 fL 81-99 [facility] Glucose Glucometer (dC) [M ass/Vol]Ordered By: Dr. Kay on 11-19-2022 Glucose [Mass/Vol] 295 mg/dL 74-106 [facility] Comment on above: MANAGEMENT OF PATIEN T CARE PER NURSING PROTOCOL Hematocrit Auto (Bld) [Volum e fraction]Ordered By: Dr. Kay on 11-19-2022 Hematocrit (Bld) [Volume fraction] 34.5 % 37-47 [facility] - Chemistry and C hemistry - challengeOrdered By: Dr. Kay on 11-19-2022 CO2 [Moles/Vol] 28.0 mmol/L 21.0-32.0 [facility] Urea nitrogen/Creatinine [Mass ratio] 14.3 mg/mg 10-20 [facility] - CoagulationOrde red By: Dr. Tavares on 11-19-2022 aPTT Coag (Bld) [Time] 63.5 s 24.1-36.2 [facility] - Hematology and Cell countsOrdered By: Dr. Kay on 11-19-2022 Erythrocyte distribution width (RBC) [Entitic vol] 41.3 fL 35.1-43.9 [facility] Erythrocyte distribution width (RBC) [Ratio] 12.2 % 11.6-14.6 [facility] Immature granulocytes/100 WBC (Bld) 0.200 % 0.0-0.9 [facility] Comment on above: IG% - Immature Granu locytes (promyelocytes, myelocytes and metamyelocytes) > 1% indicates that a LEFT SHIFT is Present. MCH (RBC) [Entitic mass] 32.1 pg 27.0-32.0 [facility] Nucleated RBC/100 WBC (Bld) [Ratio] 0 % 0-5 [facility] MCHC Auto (RBC) [Mass/Vol]Or dered By: Dr. Kay on 11-19-2022 MCHC (RBC) [Mass/Vol] 34.8 g/dL 32-36 [facility] No Panel InformationOrdered By: Dr. Kay on 11-19-2022 Estimated Creatinine Clearance Calc 97.38 ml/min [facility] Estimated GFR (MDRD) Amer 131 mL/min >60 [facility] Comment on above: GFR Calc Estimated GFR (MDRD) Non-Af Amer 108 mL/min >60 [facility] Comment on above: Non- GFR Calc No Panel InformationOrdered By: Dr. Piña on 11-19-2022 Troponin I High Sensitivity 307 pg/mL 3.0-54.0 [facility] Comment on above: Critical Result(s) C alled at: 04:53:08 11/19/2022 by: Kannan BRAUN RN ([facility]) Results read back by same. Please Note: New Test Units and Gender Specific Reference Ranges. For more information see Policy Stat Procedure [place] High Sensitivity Troponin (TNIH) and attachments. Platelets bldOrdered By: Dr. Kay on 11-19-2022 Platelets (Bld) [#/Vol] 194 10*3/uL 150-450 [facility] Serum or plasma calcium alphonso urement (mass/volume)Ordered By: Dr. Kay on 11-19-2022 Calcium [Mass/Vol] 7.7 mg/dL 8.5-10.1 [facility] Serum or plasma cholesterol in HDL measurement (mass/volume)Ordered By: Dr. Piña on 11-19-2022 Cholesterol in HDL [Mass/Vol] 42 mg/dL >40 [facility] Comment on above: The drugs N-Acetylcy steine and Metamizole may falsely depress this assay. Reference Range HDL <40 mg/dL Low HDL Cholesterol HDL >or= 60 mg/dL High HDL Cholesterol Serum or plasma cholesterol in VLDL measurement (mass/volume)Ordered By: Dr. Piña on 11-19-2022 Cholesterol in VLDL [Mass/Vol] 45 mg/dL 5-40 [facility] Serum or plasma creatinine m easurement (mass/volume)Ordered By: Dr. Kay on 11-19-2022 Creatinine [Mass/Vol] 0.63 mg/dL 0.55-1.02 [facility] Comment on above: The validity of the calculated GFR & GFRAA in patients over 70 years has not been determined. Clinical correlation is essential. Serum or plasma low density lipoprotein (LDL) cholesterol measurement (mass/volume)Ordered By: Dr. Piña on 11-19-2022 Cholesterol in LDL [Mass/Vol] 57 mg/dL 0-130 [facility] Serum or plasma urea nitroge n measurement (mass/volume)Ordered By: Dr. Kay on 11-19-2022 Urea nitrogen [Mass/Vol] 9 mg/dL 7-18 [facility] Thin prep Papanicolaou smear with manual screeningOrdered By: Dr. Kay on 11-19-2022 Thin prep Papanicolaou smear with manual screening 6 5-15 [facility] Basophil percentageOrdered B y: Dr. Piña on 11-18-2022 Bilirubin [Mass/Vol] 0.50 mg/dL 0.20-1.00 [facility] Comment on above: For patients on eltr ombopag therapy, use of Dimension [place] TBIL is not recommended. Protein [Mass/Vol] 7.4 g/dL 6.4-8.2 [facility] Direct bilirubinOrdered By: Dr. Piña on 11-18-2022 Bilirubin.direct [Mass/Vol] 0.13 mg/dL 0.00-0.30 [facility] INR in Blood by Coagulation assayOrdered By: Dr. Tavares on 11-18-2022 INR Coag (Bld) [Relative time] 1.0 {INR} [facility] - Chemistry and C hemistry - challengeOrdered By: Dr. Piña on 11-18-2022 ALP [Catalytic activity/Vol] 82 U/L 45-117 [facility] ALT [Catalytic activity/Vol] 33 U/L 13-56 [facility] Globulin (S) [Mass/Vol] 4.0 g/dL 2.2-4.2 [facility] Laboratory - CoagulationOrde red By: Dr. Tavares on 11-18-2022 PT Coag (PPP) [Time] 12.9 s 11.7-14.9 [facility] No Panel InformationOrdered By: Dr. Tavares on 11-18-2022 D-Dimer Quantitative (PE/DVT) 0.40 FEU/ug/m 0.27-0.49 [facility] Comment on above: NORMAL D-Dimer level (<0.50) indicates no DVT or PE. Serum or plasma albumin alphonso urement (mass/volume)Ordered By: Dr. Piña on 11-18-2022 Albumin [Mass/Vol] 3.4 g/dL 3.2-5.0 [facility] Thin prep Papanicolaou smear with manual screeningOrdered By: Dr. Piña on 11-18-2022 Thin prep Papanicolaou smear with manual screening 26 U/L 15-37 [facility] Absolute lymphocyte counton 09-05-2022 Lymphocytes Auto (Unsp spec) [#/Vol] 3.03 10*3/uL 0.83-4.51 [facility] Work Phone: Basophil percentageon 2021 Basophils/100 WBC (Bld) 0.5 % 0-1 [facility] Work Phone: Chloride [Moles/Vol] 105 mmol/L 98-107 [facility] Work Phone: Eosinophils/100 WBC (Bld) 3.3 % 0-5 [facility] Work Phone: Glucose [Mass/Vol] 246 mg/dL 74-106 [facility] Work Phone: Comment on above: Glucose result great er than or equal to 200 mg/dLsuggests DIABETES MELLITUS per A.D.A. criteria. Neutrophils (Bld) [#/Vol] 3.8 10*3/uL 2.0-7.7 [facility] Work Phone: Neutrophils/100 WBC (Bld) 48.3 % 47-70 [facility] Work Phone: Potassium [Moles/Vol] 3.6 mmol/L 3.5-5.1 [facility] Work Phone: Sodium [Moles/Vol] 142 mmol/L 136-145 [email or web address] Work Phone: WBC (Bld) [#/Vol] 7.8 10*3/uL 4.4-11.0 [email or web address] Work Phone: Blood erythrocytes count (nu mber/volume)on 09-05-2022 RBC (Bld) [#/Vol] 4.17 10*6/uL 4.2-5.4 [facility] Work Phone: Blood hemoglobin measurement (mass/volume)on 09-05-2022 Hemoglobin (Bld) [Mass/Vol] 13.1 g/dL 12.0-15.0 [facility] Work Phone: Blood lymphocytes/100 leukoc yteson 09-05-2022 Lymphocytes/100 WBC (Bld) 39.0 % 19-41 [facility] Work Phone: [phone] Blood monocytes/100 leukocyt eson 09-05-2022 Monocytes/100 WBC (Bld) 8.5 % 0-10 [facility] Work Phone: Blood platelet mean volumeon 09-05-2022 Platelet mean volume (Bld) [Entitic vol] 9.6 fL 6.2-12.0 [facility] Work Phone: Determination of erythrocyte mean corpuscular volume (MCV)on 09-05-2022 MCV (RBC) [Entitic vol] 92.1 fL 81-99 [facility] Work Phone: Hematocrit Auto (Bld) [Volum e fraction]on 09-05-2022 Hematocrit (Bld) [Volume fraction] 38.4 % 37-47 [facility] Work Phone: Laboratory - Chemistry and C hemistry - challengeon 09-05-2022 CO2 [Moles/Vol] 27.0 mmol/L 21.0-32.0 [facility] Work Phone: Urea nitrogen/Creatinine [Mass ratio] 16.7 mg/mg 10-20 [facility] Work Phone: Laboratory - Hematology and Cell countson 09-05-2022 Erythrocyte distribution width (RBC) [Entitic vol] 42.3 fL 35.1-43.9 [facility] Work Phone: Erythrocyte distribution width (RBC) [Ratio] 12.7 % 11.6-14.6 [facility] Work Phone: Immature granulocytes/100 WBC (Bld) 0.400 % 0.0-0.9 [facility] Work Phone: Comment on above: IG% - Immature Granu locytes (promyelocytes, myelocytes and metamyelocytes) > 1% indicates that a LEFT SHIFT is Present. MCH (RBC) [Entitic mass] 31.4 pg 27.0-32.0 [facility] Work Phone: Nucleated RBC/100 WBC (Bld) [Ratio] 0 % 0-5 [facility] Work Phone: MCHC Auto (RBC) [Mass/Vol]on 09-05-2022 MCHC (RBC) [Mass/Vol] 34.1 g/dL 32-36 [facility] Work Phone: No Panel Informationon 09-05 Estimated Creatinine Clearance Calc 78.65 ml/min [facility] Work Phone: Estimated GFR (MDRD) Amer 103 mL/min >60 [facility] Work Phone: Comment on above: GFR Calc Estimated GFR (MDRD) Non-Af Amer 85 mL/min >60 [facility] Work Phone: Comment on above: Non- GFR Calc Ethyl Alcohol Level 237.0 mg/dL [facility] Work Phone: Comment on above: The serum:whole bloo d ethanol ratio is approximately 1.14and varies slightly with hematocrit. Medical Alcohol reference interval and critical value innon-tolerant individuals; 50 - 100 Impairment 100 Intoxication 100 - 250 Severe Poisoning 250 - 400 Deep/possible fatal coma Platelets bldon 09-05-2022 Platelets (Bld) [#/Vol] 318 10*3/uL 150-450 [facility] Work Phone: Serum or plasma calcium alphonso urement (mass/volume)on 09-05-2022 Calcium [Mass/Vol] 8.8 mg/dL 8.5-10.1 [facility] Work Phone: Serum or plasma creatinine m easurement (mass/volume)on 09-05-2022 Creatinine [Mass/Vol] 0.78 mg/dL 0.55-1.02 [facility] Work Phone: Comment on above: The validity of the calculated GFR & GFRAA in patients over 70 years has not been determined. Clinical correlation is essential. Serum or plasma urea nitroge n measurement (mass/volume)on 09-05-2022 Urea nitrogen [Mass/Vol] 13 mg/dL 7-18 [facility] Work Phone: Thin prep Papanicolaou smear with manual screeningon 09-05-2022 Thin prep Papanicolaou smear with manual screening 10 5-15 [facility] Work Phone: XR HIP GENERAL 3V PELV/AP/LA T LEFTon 07-21-2022 [facility] XR Pelvis and Hip - left AP and Lateral frogon 07-21-2022 IMPRESSION: Negative pelvis and left hip. Web Application Dev Specialist: PSCB Transcribe Date/Time: Jul 21 2022 7:27P Dictated by : BETINA MAGANA MD This examination was interpreted and the report reviewed and electronically signed by: BETINA MAGANA MD on Jul 21 2022 7:29PM [facility] DIVISION OF RADIOLOGY * * [...] dislocation. DIVISION OF RADIOLOGY Provider, Blank goode [place] - 07/21/2022 * * *Final Report* * [...] IMPRESSION IMPRESSION: Negative pelvis and left hip. Web Application Dev Specialist: PSCB Transcribe Date/Time: Jul 21 2022 7:27P Dictated by : BETINA MAGANA MD This examination was interpreted and the report reviewed and electronically signed by: BETINA MAGANA MD on Jul 21 2022 7:29PM EST [facility] Radiology Study observation (narrative) Aric zhang [facility] XR Pelvis and Hip - left AP and Lateral frogOrdered By: [facility] Provider on 07-21-2022 [facility] - Microbiology an d Antimicrobial susceptibilityon 05-31-2022 SARS-CoV-2 (COVID-19) RNA ALLEY+probe Ql (Unsp spec) Not detected [facility] Work Phone: Absolute lymphocyte counton 02-22-2022 Lymphocytes Auto (Unsp spec) [#/Vol] 2.29 10*3/uL 0.83-4.51 [facility] Work Phone: Basophil percentageon 2021 Basophils/100 WBC (Bld) 0.6 % 0-1 [facility] Work Phone: [phone] Chloride [Moles/Vol] 103 mmol/L 98-107 [facility] Work [facility]: Eosinophils/100 WBC (Bld) 4.7 % 0-5 [facility] Work Phone: Glucose [Mass/Vol] 207 mg/dL 74-106 [facility] Work Phone: Comment on above: Glucose result great er than or equal to 200 mg/dLsuggests DIABETES MELLITUS per A.D.A. criteria. Neutrophils (Bld) [#/Vol] 3.2 10*3/uL 2.0-7.7 [facility] Work Phone: Neutrophils/100 WBC (Bld) 49.0 % 47-70 [facility] Work Phone: [phone] Potassium [Moles/Vol] 3.6 mmol/L 3.5-5.1 [facility] Work Phone: Sodium [Moles/Vol] 135 mmol/L 136-145 [facility] Work Phone: [phone] WBC (Bld) [#/Vol] 6.6 10*3/uL 4.4-11.0 [facility] Work Phone: Blood erythrocytes count (nu mber/volume)on 02-22-2022 RBC (Bld) [#/Vol] 4.50 10*6/uL 4.2-5.4 [facility] Work Phone: [phone] Blood hemoglobin measurement (mass/volume)on 02-22-2022 Hemoglobin (Bld) [Mass/Vol] 13.8 g/dL 12.0-15.0 [facility] Work Phone: Blood lymphocytes/100 leukoc yteson 02-22-2022 Lymphocytes/100 WBC (Bld) 34.9 % 19-41 [facility] Work Phone: Blood monocytes/100 leukocyt eson 02-22-2022 Monocytes/100 WBC (Bld) 10.2 % 0-10 [facility] Work Phone: Blood platelet mean volumeon 02-22-2022 Platelet mean volume (Bld) [Entitic vol] 10.3 fL 6.2-12.0 [facility] Work Phone: Determination of erythrocyte mean corpuscular volume (MCV)on 02-22-2022 MCV (RBC) [Entitic vol] 88.9 fL 81-99 [facility] Work Phone: Hematocrit Auto (Bld) [Volum e fraction]on 02-22-2022 Hematocrit (Bld) [Volume fraction] 40.0 % 37-47 [facility] Work Phone: Laboratory - Chemistry and C hemistry - challengeon 02-22-2022 CO2 [Moles/Vol] 27.0 mmol/L 21.0-32.0 [facility] Work Phone: Urea nitrogen/Creatinine [Mass ratio] 12.3 mg/mg 10-20 [facility] Work Phone: Laboratory - Hematology and Cell countson 02-22-2022 Erythrocyte distribution width (RBC) [Entitic vol] 39.8 fL 35.1-43.9 [facility] Work Phone: Erythrocyte distribution width (RBC) [Ratio] 12.2 % 11.6-14.6 [facility] Work Phone: Immature granulocytes/100 WBC (Bld) 0.600 % 0.0-0.9 [facility] Work Phone: Comment on above: IG% - Immature Granu locytes (promyelocytes, myelocytes and metamyelocytes) > 1% indicates that a LEFT SHIFT is Present. MCH (RBC) [Entitic mass] 30.7 pg 27.0-32.0 [facility] Work Phone: Nucleated RBC/100 WBC (Bld) [Ratio] 0 % 0-5 [facility] Work Phone: MCHC Auto (RBC) [Mass/Vol]on 02-22-2022 MCHC (RBC) [Mass/Vol] 34.5 g/dL 32-36 [facility] Work [facility]: No Panel Informationon 02-22 D-Dimer Quantitative (PE/DVT) < 0.27 FEU/ug/m 0.27-0.49 [facility] Work Phone: Comment on above: NORMAL D-Dimer level (<0.50) indicates no DVT or PE. Estimated Creatinine Clearance Calc 84.92 ml/min [facility] Work Phone: Estimated GFR (MDRD) Amer 111 mL/min >60 [facility] Work Phone: Comment on above: GFR Calc Estimated GFR (MDRD) Non-Af Amer 91 mL/min >60 [facility] Work Phone: Comment on above: Non- GFR Calc Troponin I High Sensitivity < 3 pg/mL 3.0-54.0 [facility] Work Phone: Comment on above: Please Note: New [place] t Units and Gender Specific Reference Ranges. For more information see Policy Stat Procedure [place] High Sensitivity Troponin (TNIH) and attachments. Platelets bldon 02-22-2022 Platelets (Bld) [#/Vol] 311 10*3/uL 150-450 [facility] Work Phone: Serum or plasma calcium alphonso urement (mass/volume)on 02-22-2022 Calcium [Mass/Vol] 9.4 mg/dL 8.5-10.1 [facility] Work Phone: Serum or plasma creatinine m easurement (mass/volume)on 02-22-2022 Creatinine [Mass/Vol] 0.73 mg/dL 0.55-1.02 [facility] Work Phone: Comment on above: The validity of the calculated GFR & GFRAA in patients over 70 years has not been determined. Clinical correlation is essential. Serum or plasma urea nitroge n measurement (mass/volume)on 02-22-2022 Urea nitrogen [Mass/Vol] 9 mg/dL 7-18 [facility] Work Phone: Thin prep Papanicolaou smear with manual screeningon 02-22-2022 Thin prep Papanicolaou smear with manual screening 5 5-15 [facility] Work Phone: ALCOHOLon 06-10-2021 ALCOHOL Canceled [facility] Comment on above: Order Comment: TEST ALCOHOL WAS CANCELLED, 06/10/2021 20:44 Result Comment: FOR MEDICAL USE ONLY. Performed By: #### A #### [facility] [address] [place] [address] Provider Note - ED v2on 05-29 Provider [...] made to minimize errors. Minor errors in stand in may be present. Please call if questions.. [...] documented data. SIGNIFICANT EVENTS: No documented data. ADULT NEUROPSYCHOLOGIST: Is : no(1) Is : no(1) RESULTS/VITAL [...] Referenced From Triage - ED 10-Jun-2021 20:27 [facility] Triage - EDon 06-10-2021 Triage - [...] BMI (kg/m2): 27.531 Calculated BSA (m2) 1.81 [place] Coma Scale: Best Eye Response: (E4) spontaneous [...] Updated: 10-Jun-2021 20:30 by Rocky Hebert (RN) [facility] Vital Signs Date Time Vital Sign Value Performing Clinician Facility 08-15-2025 15:00-0400 Heart rate 103 /min Abisai Haley MD Work Phone: [facility] 08-15-2025 14:00-0400 Body temperature 98.3 [degF] Abisai Haley MD Work Phone: [facility] 08-15-2025 14:00-0400 Diastolic blood pressure 91 mm[Hg] Abisai Haley MD Work Phone: [facility] 08-15-2025 14:00-0400 Respiratory rate 14 /min Abisai Haley MD Work Phone: [facility] 08-15-2025 14:00-0400 SaO2% (BldA) [Mass fraction] 100 % Abisai Haley MD Work Phone: [facility] 08-15-2025 14:00-0400 Systolic blood pressure 123 mm[Hg] Abisai Haley MD Work Phone: [facility] 08-15-2025 06:00-0400 Body mass index (BMI) [Ratio] 20.3 kg/m2 Abisai Haley MD Work Phone: [facility] 08-15-2025 06:00-0400 Body weight 53.8 kg Abisai Haley MD Work Phone: [facility] 08-13-2025 09:16-0400 Body height 162.56 cm Abisai Haley MD Work Phone: [facility] 08-13-2025 09:00-0400 Inhaled oxygen flow rate 2 L/min Abisai Haley MD Work Phone: [facility] 08-12-2025 12:51-0400 Heart rate 115 /min Abisai Haley MD Work Phone: [facility] 08-12-2025 12:51-0400 Inhaled oxygen flow rate 2 L/min Abisai Haley MD Work Phone: [facility] 08-12-2025 12:51-0400 Respiratory rate 17 /min Abisai Haley MD Work Phone: [facility] 08-12-2025 12:51-0400 SaO2% (BldA) [Mass fraction] 95 % Abisai Haley MD Work Phone: [facility] 08-12-2025 12:43-0400 Body mass index (BMI) [Ratio] 20.2 kg/m2 Abisai Haley MD Work Phone: [facility] 08-12-2025 12:43-0400 Body weight 53.6 kg Abisai Haley MD Work Phone: [facility] 08-12-2025 12:42-0400 Body temperature 98.3 [degF] Abisai Haley MD Work Phone: [facility] 08-12-2025 12:42-0400 Diastolic blood pressure 85 mm[Hg] Abisai Haley MD Work Phone: [facility] 08-12-2025 12:42-0400 Systolic blood pressure 161 mm[Hg] Abisai Haley MD Work Phone: [facility] 08-12-2025 08:19-0400 Body height 162.56 cm Abisai Haley MD Work Phone: [facility] 07-20-2025 13:05-0400 Heart rate 79 /min Abisai Haley MD Work Phone: [phone] [address] 07-20-2025 13:05-0400 Respiratory rate 16 /min Abisai Haley MD Work Phone: [phone] [address] 07-20-2025 07:27-0400 Inhaled oxygen flow rate 2 L/min Abisai Haley MD Work Phone: [phone] [address] 07-20-2025 07:27-0400 SaO2% (BldA) [Mass fraction] 94 % Abisai Haley MD Work Phone: [phone] [address] 07-20-2025 03:33-0400 Body temperature 98.7 [degF] Abisai Haley MD Work Phone: [phone] [place] [address] 07-20-2025 03:33-0400 Diastolic blood pressure 69 mm[Hg] Abisai Haley MD Work Phone: [phone] [place] [address] 07-20-2025 03:33-0400 Systolic blood pressure 116 mm[Hg] Abisai Haley MD Work Phone: [phone] [address] 07-20-2025 02:08-0400 Body mass index (BMI) [Ratio] 24.1 kg/m2 Abisai Haley MD Work Phone: [phone] [address] 07-20-2025 02:08-0400 Body weight 64.1 kg Abisai Haley MD Work Phone: [phone] [address] 07-18-2025 15:17-0400 Body height 162.56 cm Abisai Haley MD Work Phone: 8(459)[phone] [place] [address] 07-17-2025 13:12-0400 Body temperature 98.4 [degF] Abisai Haley MD Work Phone: [facility] 07-17-2025 13:12-0400 Diastolic blood pressure 97 mm[Hg] Abisai Haley MD Work Phone: [facility] 07-17-2025 13:12-0400 Heart rate 88 /min Abisai Haley MD Work Phone: [facility] 07-17-2025 13:12-0400 Respiratory rate 16 /min Abisai Haley MD Work Phone: [facility] 07-17-2025 13:12-0400 SaO2% (BldA) [Mass fraction] 99 % Abisai Haley MD Work Phone: [facility] 07-17-2025 13:12-0400 Systolic blood pressure 181 mm[Hg] Abisai Haley MD Work Phone: 4(476)499-215971 [address] 07-17-2025 10:14-0400 Body height 162.56 cm Abisai Haley MD Work Phone: [facility] 07-17-2025 10:14-0400 Body mass index (BMI) [Ratio] 20.7 kg/m2 Abisai Haley MD Work Phone: [facility] 07-17-2025 10:14-0400 Body weight 54.93 kg Abisai Haley MD Work Phone: [facility] 05-28-2025 13:43-0400 Body temperature 98 [degF] Abisai Haley MD Work Phone: [facility] 05-28-2025 13:43-0400 Diastolic blood pressure 77 mm[Hg] Abisai Haley MD Work Phone: 9(750)[phone] [place] [address] 05-28-2025 13:43-0400 Heart rate 83 /min Abisai Haley MD Work Phone: [facility] 05-28-2025 13:43-0400 Respiratory rate 16 /min Abisai Haley MD Work Phone: [facility] 05-28-2025 13:43-0400 SaO2% (BldA) [Mass fraction] 96 % Abisai Haley MD Work Phone: [facility] 05-28-2025 13:43-0400 Systolic blood pressure 117 mm[Hg] Abisai Haley MD Work Phone: [facility] 05-27-2025 08:08-0400 Inhaled oxygen flow rate 2 L/min Abisai Haley MD Work Phone: 3(941)[phone] [place] [address] 05-25-2025 02:53-0400 Body height 162.56 cm Abisai Haley MD Work Phone: 1(773)[phone] [place] [address] 05-25-2025 02:53-0400 Body mass index (BMI) [Ratio] 21.4 kg/m2 bAisai Haley MD Work Phone: 8(560)[phone] [place] [address] 05-25-2025 02:53-0400 Body weight 56.7 kg Abisai Haley MD Work Phone: [facility] 05-25-2025 02:24-0400 Respiratory rate 16 /min Abisai Haley MD Work Phone: [facility] 05-25-2025 02:24-0400 SaO2% (BldA) [Mass fraction] 96 % Abisai Haley MD Work Phone: [facility] 05-25-2025 00:56-0400 Body temperature 98.3 [degF] Abisai Haley MD Work Phone: [facility] 05-25-2025 00:56-0400 Diastolic blood pressure 63 mm[Hg] Abisai Haley MD Work Phone: [facility] 05-25-2025 00:56-0400 Heart rate 99 /min Abisai Haley MD Work Phone: [facility] 05-25-2025 00:56-0400 Systolic blood pressure 141 mm[Hg] Abisai Haley MD Work Phone: 9(407)[phone] [place] [address] 05-24-2025 23:09-0400 Body height 162.56 cm Abisai Haley MD Work Phone: [facility] 05-24-2025 23:09-0400 Body mass index (BMI) [Ratio] 21.7 kg/m2 Abisai Haley MD Work Phone: [facility] 05-24-2025 23:09-0400 Body weight 57.4 kg Abisai Haley MD Work Phone: [facility] 05-06-2025 11:28-0400 Body temperature 97.9 [degF] Abisai Haley MD Work Phone: [facility] 05-06-2025 11:28-0400 Diastolic blood pressure 80 mm[Hg] Abisai Haley MD Work Phone: [facility] 05-06-2025 11:28-0400 Heart rate 75 /min Abisai Haley MD Work Phone: [facility] 05-06-2025 11:28-0400 Respiratory rate 16 /min Abisai Haley MD Work Phone: [facility] 05-06-2025 11:28-0400 SaO2% (BldA) [Mass fraction] 92 % Abisai Haley MD Work Phone: [facility] 05-06-2025 11:28-0400 Systolic blood pressure 125 mm[Hg] Abisai Haley MD Work Phone: [facility] 05-06-2025 02:33-0400 Inhaled oxygen concentration 21 % Abisai Haley MD Work Phone: [facility] 05-05-2025 20:11-0400 Inhaled oxygen flow rate 2 L/min Abisai Haley MD Work Phone: [facility] 05-04-2025 11:23-0400 Body height 162.56 cm Abisai Haley MD Work Phone: [facility] 05-04-2025 11:23-0400 Body weight 59.5 kg Abisai Haley MD Work Phone: [facility] 04-26-2025 18:15-0400 Body mass index (BMI) [Ratio] 22.5 kg/m2 Abisai Haley MD Work Phone: [facility] 04-26-2025 17:00-0400 Diastolic blood pressure 86 mm[Hg] Abisai Haley MD Work Phone: [facility] 04-26-2025 17:00-0400 Heart rate 90 /min Abisai Haley MD Work Phone: [facility] 04-26-2025 17:00-0400 Respiratory rate 29 /min Abisai Haley MD Work Phone: [facility] 04-26-2025 17:00-0400 SaO2% (BldA) [Mass fraction] 95 % Abisai Haley MD Work Phone: [facility] 04-26-2025 17:00-0400 Systolic blood pressure 169 mm[Hg] Abisai Haley MD Work Phone: [facility] 04-26-2025 16:19-0400 Body temperature 98.1 [degF] Abisai Haley MD Work Phone: [facility] 04-26-2025 13:42-0400 Body height 162.56 cm Abisai Haley MD Work Phone: [facility] 04-26-2025 13:42-0400 Body mass index (BMI) [Ratio] 22.3 kg/m2 Abisai Haley MD Work Phone: [facility] 04-26-2025 13:42-0400 Body weight 58.96 kg Abisai Haley MD Work Phone: [facility] 04-12-2025 00:24-0400 Body temperature 98 [degF] Abisai Haley MD Work Phone: [facility] 04-12-2025 00:24-0400 Diastolic blood pressure 66 mm[Hg] Abisai Haley MD Work Phone: [facility] 04-12-2025 00:24-0400 Heart rate 78 /min Abisai Haley MD Work Phone: [facility] 04-12-2025 00:24-0400 Respiratory rate 16 /min Abisai Haley MD Work Phone: [facility] 04-12-2025 00:24-0400 SaO2% (BldA) [Mass fraction] 100 % Abisai Haley MD Work Phone: [facility] 04-12-2025 00:24-0400 Systolic blood pressure 125 mm[Hg] Abisai Haley MD Work Phone: [facility] 04-11-2025 23:20-0400 Inhaled oxygen flow rate 2 L/min Abisai Haley MD Work Phone: [facility] 04-11-2025 21:46-0400 Body mass index (BMI) [Ratio] 24.4 kg/m2 Abisai Haley MD Work Phone: [facility] 04-11-2025 21:46-0400 Body weight 64.6 kg Abisai Haley MD Work Phone: [facility] 04-11-2025 21:42-0400 Body height 162.56 cm Abisai Haley MD Work Phone: [facility] 04-04-2025 17:00-0400 Heart rate 97 /min Abisai Haley MD Work Phone: [facility] 04-04-2025 17:00-0400 Respiratory rate 25 /min Abisai Haley MD Work Phone: [facility] 04-04-2025 16:03-0400 Body temperature 98.4 [degF] Abisai Haley MD Work Phone: [facility] 04-04-2025 16:03-0400 Diastolic blood pressure 88 mm[Hg] Abisai Haley MD Work Phone: [facility] 04-04-2025 16:03-0400 SaO2% (BldA) [Mass fraction] 97 % Abisai Haley MD Work Phone: [facility] 04-04-2025 16:03-0400 Systolic blood pressure 157 mm[Hg] Abisai Haley MD Work Phone: [facility] 04-04-2025 11:51-0400 Body mass index (BMI) [Ratio] 25.1 kg/m2 Abisai Haley MD Work Phone: [facility] 04-04-2025 11:51-0400 Body weight 66.4 kg Abisai Haley MD Work Phone: [facility] 04-04-2025 10:24-0400 Body height 162.56 cm Abisai Haley MD Work Phone: [facility] 04-22-2024 13:48-0400 Body mass index (BMI) [Ratio] 29.6 kg/m2 Aretha Praisler-Wood COUNTERSINKER.AUTO CLAIM REPRESENTATIVE Work Phone: [facility] 04-22-2024 13:48-0400 Body temperature 97.39 [degF] Aretha Praisler-Wood COUNTERSINKER.AUTO CLAIM REPRESENTATIVE Work Phone: [facility] 04-22-2024 13:48-0400 Body weight 75.8 kg Aretha Praisler-Wood COUNTERSINKER.AUTO CLAIM REPRESENTATIVE Work Phone: [facility] 04-22-2024 13:48-0400 Diastolic blood pressure 84 mm[Hg] Aretha Praisler-Wood COUNTERSINKER.AUTO CLAIM REPRESENTATIVE Work Phone: [facility] 04-22-2024 13:48-0400 Heart rate 115 /min Aretha Praisler-Wood COUNTERSINKER.AUTO CLAIM REPRESENTATIVE Work Phone: [facility] 04-22-2024 13:48-0400 Respiratory rate 20 /min Aretha Praisler-Wood COUNTERSINKER.AUTO CLAIM REPRESENTATIVE Work Phone: [facility] 04-22-2024 13:48-0400 SaO2% (BldA) [Mass fraction] 98 % Aretha Praisler-Wood COUNTERSINKER.AUTO CLAIM REPRESENTATIVE Work Phone: [facility] 04-22-2024 13:48-0400 Systolic blood pressure 120 mm[Hg] Aretha Schofield APRN.CNP Work Phone: [facility] 03-22-2024 07:08-0400 Body temperature 97.7 [degF] DO Milana Jose Work Phone: [facility] 03-22-2024 07:08-0400 Diastolic blood pressure 84 mm[Hg] DO Milana Jose Work Phone: [facility] 03-22-2024 07:08-0400 Heart rate 102 /min DO Milana Jose Work Phone: [facility] 03-22-2024 07:08-0400 Respiratory rate 17 /min DO Milana Jose Work Phone: [facility] 03-22-2024 07:08-0400 SaO2% (BldA) [Mass fraction] 95 % DO Milana Jose Work Phone: [facility] 03-22-2024 07:08-0400 Systolic blood pressure 134 mm[Hg] DO Milana Jose Work Phone: [facility] 01-24-2024 21:30-0500 Body temperature 96.9 [degF] DO Milana Jose Work Phone: [facility] 01-24-2024 21:30-0500 Diastolic blood pressure 61 mm[Hg] DO Milana Jose Work Phone: [facility] 01-24-2024 21:30-0500 Heart rate 96 /min DO Milana Jose Work Phone: [facility] 01-24-2024 21:30-0500 Respiratory rate 16 /min DO Milana Jose Work Phone: [facility] 01-24-2024 21:30-0500 SaO2% (BldA) [Mass fraction] 98 % DO Milana Jose Work Phone: [facility] 01-24-2024 21:30-0500 Systolic blood pressure 149 mm[Hg] DO Milana Jose Work Phone: [facility] 01-24-2024 21:25-0500 Body mass index (BMI) [Ratio] 28 kg/m2 DO Milana Jose Work Phone: [facility] 01-24-2024 21:25-0500 Body weight 74 kg DO Milana Jose Work Phone: [facility] 01-24-2024 16:39-0500 Body height 162.56 cm DO Milana Jose Work Phone: [facility] 10-19-2023 10:54-0500 Body height 162.56 cm DO Milana Jose Work Phone: [facility] 10-19-2023 10:54-0500 Body mass index (BMI) [Ratio] 26.2 kg/m2 DO Milana Jose Work Phone: [facility] 10-19-2023 10:54-0500 Body temperature 98.4 [degF] DO Milana Jose Work Phone: [facility] 10-19-2023 10:54-0500 Body weight 69.39 kg DO Milana Jose Work Phone: [facility] 10-19-2023 10:54-0500 Diastolic blood pressure 80 mm[Hg] DO Milana Jose Work Phone: [facility] 10-19-2023 10:54-0500 Heart rate 97 /min DO Milana Jose Work Phone: [facility] 10-19-2023 10:54-0500 Respiratory rate 16 /min DO Milana Jose Work Phone: [facility] 10-19-2023 10:54-0500 SaO2% (BldA) [Mass fraction] 90 % DO Milana Jose Work Phone: [facility] 10-19-2023 10:54-0500 Systolic blood pressure 147 mm[Hg] DO Milana Jose Work Phone: [facility] 10-10-2023 17:58-0500 Diastolic blood pressure 68 mm[Hg] DO Milana Jose Work Phone: [facility] 10-10-2023 17:58-0500 Heart rate 81 /min DO Milana Jose Work Phone: [facility] 10-10-2023 17:58-0500 Respiratory rate 16 /min DO Milana Jose Work Phone: [facility] 10-10-2023 17:58-0500 SaO2% (BldA) [Mass fraction] 97 % DO Milana Jose Work Phone: [facility] 10-10-2023 17:58-0500 Systolic blood pressure 128 mm[Hg] DO Milana Jose Work Phone: [facility] 10-10-2023 15:25-0500 Body mass index (BMI) [Ratio] 26.3 kg/m2 DO Milana Jose Work Phone: [facility] 10-10-2023 15:25-0500 Body temperature 98.4 [degF] DO Milana Jose Work Phone: [facility] 10-10-2023 15:25-0500 Body weight 69.58 kg DO Milana Jose Work Phone: [facility] 09-27-2023 15:27-0400 Body temperature 98.2 [degF] DO Milana Jose Work Phone: [facility] 09-27-2023 15:27-0400 Diastolic blood pressure 78 mm[Hg] DO Milana Jose Work Phone: [facility] 09-27-2023 15:27-0400 Heart rate 92 /min DO Milana Jose Work Phone: [facility] 09-27-2023 15:27-0400 Respiratory rate 17 /min DO Milana Jose Work Phone: [facility] 09-27-2023 15:27-0400 SaO2% (BldA) [Mass fraction] 92 % DO Milana Jose Work Phone: [facility] 09-27-2023 15:27-0400 Systolic blood pressure 145 mm[Hg] DO Milana Jose Work Phone: [facility] 09-15-2023 12:21-0400 Body temperature 98.6 [degF] DO Milana Jose Work Phone: [facility] 09-15-2023 12:21-0400 Diastolic blood pressure 83 mm[Hg] DO Milana Jose Work Phone: [facility] 09-15-2023 12:21-0400 Heart rate 93 /min DO Milana Jose Work Phone: [facility] 09-15-2023 12:21-0400 Respiratory rate 17 /min DO Milana Jose Work Phone: [facility] 09-15-2023 12:21-0400 SaO2% (BldA) [Mass fraction] 94 % DO Milana Jose Work Phone: [facility] 09-15-2023 12:21-0400 Systolic blood pressure 149 mm[Hg] DO Milana Jose Work Phone: [facility] 08-25-2023 10:00-0400 Body height 162.56 cm DO Milana Jose Work Phone: [facility] 08-25-2023 10:00-0400 Body mass index (BMI) [Ratio] 28.3 kg/m2 DO Milana Jose Work Phone: [facility] 08-25-2023 10:00-0400 Body weight 74.84 kg DO Milana Jose Work Phone: [facility] 08-25-2023 10:00-0400 Diastolic blood pressure 85 mm[Hg] DO Milana Jose Work Phone: [facility] 08-25-2023 10:00-0400 Heart rate 63 /min DO Milana Jose Work Phone: [facility] 08-25-2023 10:00-0400 Respiratory rate 18 /min DO Milana Jose Work Phone: [facility] 08-25-2023 10:00-0400 SaO2% (BldA) [Mass fraction] 96 % DO Milana Jose Work Phone: [facility] 08-25-2023 10:00-0400 Systolic blood pressure 136 mm[Hg] DO Milana Jose Work Phone: [facility] 08-23-2023 15:04-0400 Body temperature 97.6 [degF] DO Milana Jose Work Phone: [facility] 08-23-2023 15:04-0400 Diastolic blood pressure 78 mm[Hg] DO Milana Jose Work Phone: [facility] 08-23-2023 15:04-0400 Heart rate 78 /min DO Milana Jose Work Phone: [facility] 08-23-2023 15:04-0400 Respiratory rate 14 /min DO Milana Jose Work Phone: [facility] 08-23-2023 15:04-0400 SaO2% (BldA) [Mass fraction] 99 % DO Milana Jose Work Phone: [facility] 08-23-2023 15:04-0400 Systolic blood pressure 124 mm[Hg] DO Milana Jose Work Phone: [facility] 08-23-2023 11:44-0400 Body height 162.56 cm DO Milana Jose Work Phone: [facility] 08-23-2023 11:44-0400 Body mass index (BMI) [Ratio] 28.3 kg/m2 DO Milana Jose Work Phone: [facility] 08-23-2023 11:44-0400 Body weight 74.88 kg DO Milana Jose Work Phone: [facility] 07-29-2023 17:56-0400 Diastolic blood pressure 74 mm[Hg] DO Milana Jose Work Phone: [facility] 07-29-2023 17:56-0400 Heart rate 73 /min DO Milana Jose Work Phone: [facility] 07-29-2023 17:56-0400 Respiratory rate 15 /min DO Milana Jose Work Phone: [facility] 07-29-2023 17:56-0400 SaO2% (BldA) [Mass fraction] 98 % DO Milana Jose Work Phone: [facility] 07-29-2023 17:56-0400 Systolic blood pressure 117 mm[Hg] DO Milana Jose Work Phone: [facility] 07-29-2023 14:11-0400 Body height 162.56 cm DO Milana Jose Work Phone: [facility] 07-29-2023 14:11-0400 Body mass index (BMI) [Ratio] 27.8 kg/m2 DO Milana Jose Work Phone: [facility] 07-29-2023 14:11-0400 Body temperature 96.3 [degF] DO Milana Jose Work Phone: [facility] 07-29-2023 14:11-0400 Body weight 73.48 kg DO Milana Jose Work Phone: [facility] 07-01-2023 09:44-0400 Body height 162.56 cm DO Milana Jose Work Phone: [facility] 07-01-2023 09:44-0400 Body mass index (BMI) [Ratio] 27.8 kg/m2 DO Milana Jose Work Phone: [facility] 07-01-2023 09:44-0400 Body temperature 98.5 [degF] DO Milana Jose Work Phone: [facility] 07-01-2023 09:44-0400 Body weight 73.48 kg DO Milana Jose Work Phone: [facility] 07-01-2023 09:44-0400 Diastolic blood pressure 88 mm[Hg] DO Milana Jose Work Phone: [facility] 07-01-2023 09:44-0400 Heart rate 88 /min DO Milana Jose Work Phone: [facility] 07-01-2023 09:44-0400 Respiratory rate 18 /min DO Milana Jose Work Phone: [facility] 07-01-2023 09:44-0400 SaO2% (BldA) [Mass fraction] 95 % DO Milana Jose Work Phone: [facility] 07-01-2023 09:44-0400 Systolic blood pressure 136 mm[Hg] DO Milana Jose Work Phone: [facility] 05-25-2023 02:54-0400 Diastolic blood pressure 64 mm[Hg] DO Milana Jose Work Phone: [facility] 05-25-2023 02:54-0400 Heart rate 90 /min DO Milana Jose Work Phone: [facility] 05-25-2023 02:54-0400 Respiratory rate 18 /min DO Milana Jose Work Phone: [facility] 05-25-2023 02:54-0400 Systolic blood pressure 132 mm[Hg] DO Milana Jose Work Phone: [facility] 05-25-2023 02:11-0400 SaO2% (BldA) [Mass fraction] 94 % DO Milana Jose Work Phone: [facility] 05-24-2023 21:32-0400 Body height 162.99 cm DO Milana Jose Work Phone: [facility] 05-24-2023 21:32-0400 Body mass index (BMI) [Ratio] 28.9 kg/m2 DO Milana Jose Work Phone: [facility] 05-24-2023 21:32-0400 Body temperature 96.7 [degF] DO Milana Jose Work Phone: [facility] 05-24-2023 21:32-0400 Body weight 76.9 kg DO Milana Jose Work Phone: [facility] 05-20-2023 09:58-0400 Body height 162.56 cm DO Milana Jose Work Phone: [facility] 05-20-2023 09:57-0400 Body mass index (BMI) [Ratio] 27.6 kg/m2 DO Milana Jose Work Phone: [facility] 05-20-2023 09:57-0400 Body weight 73.02 kg DO Milana Jose Work Phone: [facility] 05-20-2023 09:57-0400 Diastolic blood pressure 98 mm[Hg] DO Milana Jose Work Phone: [facility] 05-20-2023 09:57-0400 Heart rate 81 /min DO Milana Jose Work Phone: [facility] 05-20-2023 09:57-0400 Respiratory rate 18 /min DO Milana Jose Work Phone: [facility] 05-20-2023 09:57-0400 SaO2% (BldA) [Mass fraction] 97 % DO Milana Jose Work Phone: [facility] 05-20-2023 09:57-0400 Systolic blood pressure 156 mm[Hg] DO Milana Jose Work Phone: [facility] 05-05-2023 00:54-0400 Diastolic blood pressure 62 mm[Hg] DO Milana Jose Work Phone: [facility] 05-05-2023 00:54-0400 Heart rate 68 /min DO Milana Jose Work Phone: [facility] 05-05-2023 00:54-0400 Respiratory rate 16 /min DO Milana Jose Work Phone: [facility] 05-05-2023 00:54-0400 SaO2% (BldA) [Mass fraction] 96 % DO Milana Jose Work Phone: [facility] 05-05-2023 00:54-0400 Systolic blood pressure 97 mm[Hg] DO Milana Jose Work Phone: [facility] 05-04-2023 21:23-0400 Body mass index (BMI) [Ratio] 27.2 kg/m2 DO Milana Jose Work Phone: [facility] 05-04-2023 21:23-0400 Body weight 72 kg DO Milana Jose Work Phone: [facility] 05-04-2023 19:53-0400 Body height 162.56 cm DO Milana Jose Work Phone: [facility] 05-04-2023 19:53-0400 Body temperature 97.3 [degF] DO Milana Jose Work Phone: [facility] 04-11-2023 09:46-0400 Body temperature 98 [degF] DO Milana Jose Work Phone: [facility] 04-11-2023 09:46-0400 Diastolic blood pressure 63 mm[Hg] DO Milana Jose Work Phone: [facility] 04-11-2023 09:46-0400 Heart rate 85 /min DO Milana Jose Work Phone: [facility] 04-11-2023 09:46-0400 Respiratory rate 14 /min DO Milana Jose Work Phone: [facility] 04-11-2023 09:46-0400 SaO2% (BldA) [Mass fraction] 97 % DO Milana Jose Work Phone: [facility] 04-11-2023 09:46-0400 Systolic blood pressure 118 mm[Hg] DO Milana Jose Work Phone: [facility] 04-10-2023 03:47-0400 Body height 162.56 cm DO Milana Jose Work Phone: [facility] 04-10-2023 03:47-0400 Body mass index (BMI) [Ratio] 27.4 kg/m2 DO Milana Jose Work Phone: [facility] 04-10-2023 03:47-0400 Body weight 72.5 kg DO Milana Jose Work Phone: [facility] 04-10-2023 02:34-0400 Diastolic blood pressure 61 mm[Hg] DO Milana Jose Work Phone: [facility] 04-10-2023 02:34-0400 Heart rate 87 /min DO Milana Jose Work Phone: [facility] 04-10-2023 02:34-0400 Respiratory rate 16 /min DO Milana Jose Work Phone: [facility] 04-10-2023 02:34-0400 SaO2% (BldA) [Mass fraction] 95 % DO Milana Jose Work Phone: [facility] 04-10-2023 02:34-0400 Systolic blood pressure 114 mm[Hg] DO Milana Jose Work Phone: [facility] 04-10-2023 02:15-0400 Body temperature 98 [degF] DO Milana Jose Work Phone: [facility] 04-09-2023 22:23-0400 Body height 162.56 cm DO Milana Jose Work Phone: [facility] 04-09-2023 22:23-0400 Body mass index (BMI) [Ratio] 26.8 kg/m2 DO Milana Jose Work Phone: [facility] 04-09-2023 22:23-0400 Body weight 70.8 kg DO Milana Jose Work Phone: [facility] 03-22-2023 22:52-0400 Diastolic blood pressure 69 mm[Hg] DO Milana Jose Work Phone: [facility] 03-22-2023 22:52-0400 Heart rate 71 /min DO Milana Jose Work Phone: [facility] 03-22-2023 22:52-0400 Respiratory rate 18 /min DO Milana Jose Work Phone: [facility] 03-22-2023 22:52-0400 SaO2% (BldA) [Mass fraction] 98 % DO Milana Jose Work Phone: [facility] 03-22-2023 22:52-0400 Systolic blood pressure 111 mm[Hg] DO Milana Jose Work Phone: [facility] 03-22-2023 17:49-0400 Body height 162.56 cm DO Milana Jose Work Phone: [facility] 03-22-2023 17:49-0400 Body mass index (BMI) [Ratio] 26.5 kg/m2 DO Milana Jose Work Phone: [facility] 03-22-2023 17:49-0400 Body temperature 96.4 [degF] DO Milana Jose Work Phone: [facility] 03-22-2023 17:49-0400 Body weight 70.08 kg DO Milana Jose Work Phone: [facility] 02-12-2023 10:24-0400 Body temperature 98.2 [degF] DO Milana Trenter Work Phone: [facility] 02-12-2023 10:24-0400 Diastolic blood pressure 66 mm[Hg] DO Milana Tretner Work Phone: [facility] 02-12-2023 10:24-0400 Heart rate 83 /min DO Milana Trenter Work Phone: [facility] 02-12-2023 10:24-0400 Respiratory rate 16 /min DO Milana Trenter Work Phone: [facility] 02-12-2023 10:24-0400 SaO2% (BldA) [Mass fraction] 98 % DO Milana Trenter Work Phone: [facility] 02-12-2023 10:24-0400 Systolic blood pressure 104 mm[Hg] DO Milana Garcia Work Phone: [facility] 01-21-2023 15:06-0500 Diastolic blood pressure 82 mm[Hg] Dr. Calvin Waldrop Work Phone: [facility] 01-21-2023 15:06-0500 Heart rate 90 /min Dr. Calvin Waldrop Work Phone: [facility] 01-21-2023 15:06-0500 Respiratory rate 14 /min Dr. Calvin Waldrop Work Phone: [facility] 01-21-2023 15:06-0500 SaO2% (BldA) [Mass fraction] 98 % Dr. Calvin Waldrop Work Phone: [facility] 01-21-2023 15:06-0500 Systolic blood pressure 165 mm[Hg] Dr. Calvin Waldrop Work Phone: [facility] 01-21-2023 11:49-0500 Body height 162.[address] Calvin Waldrop Work Phone: [facility] 01-21-2023 11:49-0500 Body mass index (BMI) [Ratio] 27.5 kg/m2 Dr. Calvin Waldrop Work Phone: [facility] 01-21-2023 11:49-0500 Body temperature 97.2 [degF] Dr. Calvin Waldrop Work Phone: [facility] 01-21-2023 11:49-0500 Body weight 72.[address] Calvin Waldrop Work Phone: [facility] 11-19-2022 10:59-0500 Diastolic blood pressure 69 mm[Hg] Dr. Calvin Waldrop Work Phone: [facility] 11-19-2022 10:59-0500 Heart rate 83 /min Dr. Calvin Waldrop Work Phone: [facility] 11-19-2022 10:59-0500 Systolic blood pressure 120 mm[Hg] Dr. Calvin Waldrop Work Phone: [facility] 11-19-2022 10:47-0500 Body temperature 98.5 [degF] Dr. Calvin Waldrop Work Phone: [facility] 11-19-2022 10:47-0500 Respiratory rate 16 /min Dr. Calvin Waldrop Work Phone: [facility] 11-19-2022 10:47-0500 SaO2% (BldA) [Mass fraction] 97 % Dr. Calvin Waldrop Work Phone: [facility] 11-18-2022 13:57-0500 Body height 162.[address] Calvin Waldrop Work Phone: [facility] Work Phone: 11-18-2022 13:57-0500 Body mass index (BMI) [Ratio] 28.5 kg/m2 Dr. Calvin Waldrop Work Phone: [facility] 11-18-2022 13:57-0500 Body weight 75.[address] Calvin Waldrop Work Phone: [facility] 10-31-2022 11:49-0500 Body temperature 98.2 [degF] Dr. Calvin Waldrop Work Phone: [facility] 10-31-2022 11:49-0500 Diastolic blood pressure 88 mm[Hg] Dr. Calvin Waldrop Work Phone: [facility] 10-31-2022 11:49-0500 Heart rate 98 /min Dr. Calvin Waldrop Work Phone: [facility] 10-31-2022 11:49-0500 Respiratory rate 14 /min Dr. Calvin Waldrop Work Phone: [facility] 10-31-2022 11:49-0500 SaO2% (BldA) [Mass fraction] 97 % Dr. Calvin Waldrop Work Phone: [facility] 10-31-2022 11:49-0500 Systolic blood pressure 136 mm[Hg] Dr. Calvin Waldrop Work Phone: [facility] 10-07-2022 14:59-0500 Body temperature 97.8 [degF] Dr. Calvin aWldrop Work Phone: [facility] 10-07-2022 14:59-0500 Diastolic blood pressure 80 mm[Hg] Dr. Calvin Waldrop Work Phone: [facility] 10-07-2022 14:59-0500 Heart rate 107 /min Dr. Calvin Waldrop Work Phone: [facility] 10-07-2022 14:59-0500 Respiratory rate 16 /min Dr. Calvin Waldrop Work Phone: [facility] 10-07-2022 14:59-0500 SaO2% (BldA) [Mass fraction] 98 % Dr. Calvin Waldrop Work Phone: [facility] 10-07-2022 14:59-0500 Systolic blood pressure 154 mm[Hg] Dr. Calvin Waldrop Work Phone: [facility] 09-05-2022 23:51-0400 Diastolic blood pressure 68 mm[Hg] Calvin Waldrop [facility] Work Phone: 09-05-2022 23:51-0400 Heart rate 115 /min [facility] Work Phone: 09-05-2022 23:51-0400 Respiratory rate 16 /min [facility] Work Phone: 09-05-2022 23:51-0400 SaO2% (BldA) [Mass fraction] 96 % [facility] Work Phone: 09-05-2022 23:51-0400 Systolic blood pressure 129 mm[Hg] [facility] Work Phone: 09-05-2022 21:11-0400 Body height 162.[address] [facility] Work Phone: 09-05-2022 21:11-0400 Body mass index (BMI) [Ratio] 27.5 kg/m2 [facility] Work Phone: 09-05-2022 21:11-0400 Body temperature 98 [degF] [facility] Work Phone: 09-05-2022 21:11-0400 Body weight 72.[address] [facility] Work Phone: 07-21-2022 18:58-0400 Body temperature 99 [degF] Samantha Deleon COUNTERSINKER.AUTO CLAIM REPRESENTATIVE Work Phone: [facility] 07-21-2022 18:58-0400 Body weight 72.39 kg Samantha Deleon COUNTERSINKER.AUTO CLAIM REPRESENTATIVE Work Phone: [facility] 07-21-2022 18:58-0400 Diastolic blood pressure 84 mm[Hg] Samantha Deleon COUNTERSINKER.AUTO CLAIM REPRESENTATIVE Work Phone: [facility] 07-21-2022 18:58-0400 Heart rate 83 /min Samantha Deleon COUNTERSINKER.AUTO CLAIM REPRESENTATIVE Work Phone: [facility] 07-21-2022 18:58-0400 Respiratory rate 16 /min Samantha Deleon COUNTERSINKER.AUTO CLAIM REPRESENTATIVE Work Phone: [facility] 07-21-2022 18:58-0400 SaO2% (BldA) [Mass fraction] 98 % Samantha Deleon COUNTERSINKER.AUTO CLAIM REPRESENTATIVE Work Phone: [facility] 07-21-2022 18:58-0400 Systolic blood pressure 138 mm[Hg] Samantha Deleon COUNTERSINKER.AUTO CLAIM REPRESENTATIVE Work Phone: [facility] 05-31-2022 12:28-0400 Body mass index (BMI) [Ratio] 26.3 kg/m2 [facility] Work Phone: 05-31-2022 12:28-0400 Body temperature 97.3 [degF] [facility] Work Phone: 05-31-2022 12:28-0400 Body weight 69.[address] [facility] Work Phone: 05-31-2022 12:28-0400 Diastolic blood pressure 76 mm[Hg] [facility] Work Phone: 05-31-2022 12:28-0400 Heart rate 69 /min [facility] Work Phone: 05-31-2022 12:28-0400 Respiratory rate 18 /min [facility] Work Phone: 05-31-2022 12:28-0400 SaO2% (BldA) [Mass fraction] 99 % [facility] Work Phone: 05-31-2022 12:28-0400 Systolic blood pressure 116 mm[Hg] [facility] Work Phone: 02-22-2022 15:02-0400 Diastolic blood pressure 84 mm[Hg] [facility] Work Phone: 02-22-2022 15:02-0400 Heart rate 71 /min [facility] Work Phone: 02-22-2022 15:02-0400 Respiratory rate 14 /min [facility] Work Phone: 02-22-2022 15:02-0400 SaO2% (BldA) [Mass fraction] 96 % [facility] Work Phone: 02-22-2022 15:02-0400 Systolic blood pressure 120 mm[Hg] [facility] Work Phone: 02-22-2022 12:30-0400 Body temperature 96.2 [degF] [facility] Work Phone: 02-22-2022 12:12-0400 Body height 162.56 cm [facility] Work Phone: 02-22-2022 12:12-0400 Body mass index (BMI) [Ratio] 26.3 kg/m2 [facility] Work Phone: 02-22-2022 12:12-0400 Body weight 69.5 kg [facility] Work Phone: 06-10-2021 22:58-0400 Diastolic blood pressure 62 mm[Hg] No Pcp Required [facility] 06-10-2021 22:58-0400 Heart rate 88 /min No Pcp Required [facility] 06-10-2021 22:58-0400 Respiratory rate 16 /min No Pcp Required [facility] 06-10-2021 22:58-0400 SaO2% (BldA) [Mass fraction] 99 % No Pcp Required [facility] 06-10-2021 22:58-0400 Systolic blood pressure 105 mm[Hg] No Pcp Required [facility] 06-10-2021 22:27-0400 Body height 162.5 cm No Pcp Required [facility] 06-10-2021 22:27-0400 Body temperature 96.98 [degF] No Pcp Required [facility] 06-10-2021 22:27-0400 Body weight 72.7 kg No Pcp Required [facility] Encounters Encounter Date Encounter Type Care Provider [...] Non-patient / Non-[facility] Work Phone: Start: 05-28-2025 Dr. [facility] Work Phone: Start: 05-27-2025 Non-patient / Non-visit [facility] Work Phone: Start: 05-27-2025 [facility] Work Phone: Start: 05-26-2025 Non-patient / Non-visit Dr. Mao [facility] Work Phone: Start: 05-26-2025 Dr. Mao Becker [facility] Work Phone: Start: 05-25-2025 Non-patient / Non-visit Dr. Myra Null MD [facility] Work Phone: Start: 05-25-2025 ambulatory Myra Null Facility :[facility] Start: 05-25-2025 End: 05-28-2025 Evaluation and management of inpatient Dr. Myra Null MD -[facility] Work Phone: Start: 05-25-2025 End: 05-28-2025 Dr. Mao Becker DO -[facility] Work Phone: Start: 05-06-2025 Non-patient / Non-visit Dr. Mao Becker [facility] Work Phone: Start: 05-06-2025 Dr. Mao Becker [facility] Work Phone: Start: 05-05-2025 Non-patient / Non-visit Dr. Mao Becker [facility] Work Phone: Start: 05-05-2025 Dr. Mao Becker [facility] Work Phone: Start: 05-04-2025 Non-patient / Non-visit Dr. Canelo Myers MD [facility] Work Phone: Start: 05-04-2025 Dr. Canelo Myers MD [facility] Work Phone: Start: 05-03-2025 Non-patient / Non-visit Dr. Canelo Myers MD [facility] Work Phone: Start: 05-03-2025 Dr. Canelo Myers MD [facility] Work Phone: Start: 05-02-2025 Non-patient / Non-visit Dr. Canelo Myers MD [facility] Work Phone: Start: 05-02-2025 Dr. Canelo Myers MD [facility] Work Phone: Start: 05-01-2025 Non-patient / Non-visit Dr. Canelo Myers MD [facility] Work Phone: Start: 05-01-2025 Dr[facility] Work Phone: Start: 04-30-2025 Non-patient / Non-visit Dr. Canelo Myers MD [facility] Work Phone: Start: 04-30-2025 Dr. Canelo Meyrs MD [facility] Work Phone: Start: 04-29-2025 Non-patient / Non-visit Dr. Canelo Myers MD [facility] Work Phone: Start: 04-29-2025 Dr. Canelo Myers MD [facility] Work Phone: Start: 04-28-2025 Non-patient / Non-visit Dr. Canelo Myers MD [facility] Work Phone: Start: 04-28-2025 Dr. Canelo Myers MD [facility] Work Phone: Start: 04-27-2025 Non-patient / Non-visit Dr. Canelo Myers MD [facility] Work Phone: Start: 04-27-2025 Dr. Canelo Myers MD [facility] Work Phone: Start: 04-26-2025 Non-patient / Non-visit Dr. Julius Moncada MD [facility] Work Phone: Start: 04-26-2025 ambulatory Canelo Myers Facility:[facility] Start: 04-26-2025 End: 05-06-2025 Evaluation and management of inpatient Dr. Julius Moncada MD -[facility] Work Phone: Start: 04-26-2025 End: [...] -Emergency Department Work Phone: Start: 01-03-2025 ambulatory [facility] Facility:[facility] Start: 11-12-2024 End: 11-12-2024 Emergency department patient visit [facility] Facility:[facility] Start: 10-09-2024 End: 10-09-2024 ambulatory [facility] Facility:[facility] Start: 09-25-2024 End: 09-25-2024 ambulatory [facility] Facility:[facility] Start: 08-28-2024 End: 08-28-2024 ambulatory [facility] Facility:[facility] Start: 04-22-2024 End: 04-22-2024 ambulatory [facility] Facility:[facility] Start: 04-22-2024 End: 04-22-2024 Patient encounter procedure Aretha Schofield APRN.CNP Work Phone: [facility] Comment on above: Sinus congestion (Pr imary Dx); Wheezing; Nausea Start: 03-22-2024 End: 03-22-2024 Patient encounter procedure DO Milana Garcia Work Phone: [facility] Work Phone: Start: 03-21-2024 End: 03-21-2024 ambulatory DO Milana Garcia Work Phone: [facility] Work Phone: Start: 03-21-2024 End: 03-21-2024 Patient encounter procedure DO Milana Garcia Work Phone: [facility] Start: 01-24-2024 End: 01-24-2024 Emergency department patient [facility] Start: 10-19-2023 End: 10-19-2023 Patient encounter procedure DO Milana Garcia Work Phone: [facility] Work Phone: Start: 10-15-2023 End: 10-15-2023 ambulatory DO Milnaa Garcia Work Phone: [facility] Work Phone: Start: 10-15-2023 End: 10-15-2023 Patient encounter procedure DO Milana Garcia Work Phone: [facility] Work Phone: Start: 10-10-2023 End: 10-10-2023 Emergency department patient visit DO Mil[facility] Start: 09-27-2023 End: 09-27-2023 Patient encounter procedure DO Milana Garcia Work Phone: [facility] Work Phone: Start: 09-15-2023 End: 09-15-2023 Patient encounter procedure DO Milana Garcia Work Phone: [facility] Work Phone: Start: 08-25-2023 End: 08-25-2023 ambulatory DO Milana Garcia Work Phone: [facility] Work Phone: Start: 08-25-2023 End: 08-25-2023 Patient encounter procedure DO Milana Garcia Work Phone: [facility] Work Phone: Start: 08-25-2023 End: 08-25-2023 Patient encounter procedure DO Milana Garcia Work Phone: [facility] Work Phone: Start: 08-23-2023 End: 08-23-2023 Emergency department patient visit DO Mil[facility] Start: 07-29-2023 End: 07-29-2023 Emergency department patient visit DO Mil[facility] Start: 07-19-2023 End: 07-19-2023 ambulatory DO Milana Garcia Work Phone: [facility] Work Phone: Start: 07-19-2023 End: 07-19-2023 Patient encounter procedure DO Milana Garcia Work Phone: [facility] Work Phone: Start: 07-01-2023 End: 07-01-2023 Patient encounter procedure DO [facility] Work Phone: Start: 05-25-2023 Registered Referred DO Milana Garcia [facility] Start: 05-24-2023 End: 05-25-2023 Emergency department patient visit DO Milana Garcia Work Phone: [facility] Start: 05-20-2023 End: 05-20-2023 Patient encounter procedure DO Milana Garcia Work Phone: [facility] Start: 05-19-2023 End: 05-19-2023 ambulatory DO Milana Garcia Work Phone: [facility] Work Phone: Start: 05-19-2023 End: 05-19-2023 Patient encounter procedure DO Milana Garcia Work Phone: [facility] Start: 05-04-2023 End: 05-05-2023 Emergency department patient visit DO Mil[facility] Start: 04-11-2023 Non-patient / Non-visit DO Milana Christensennger Work Phone: [facility] Start: 04-10-2023 End: 04-10-2023 Non-patient / Non-visit DO Milana Garcia Work Phone: [facility] Start: 04-10-2023 End: 04-11-2023 Evaluation and management of inpatient DO Milana Garcia Work Phone: [facility] Start: 04-09-2023 End: 04-09-2023 Patient encounter procedure DO Milana Garcia Work Phone: [facility] Start: 03-22-2023 End: 03-22-2023 Emergency department patient visit DO Milana Garcia Work Phone: [facility] Start: 02-12-2023 End: 02-12-2023 Patient encounter procedure DO Milana Christensennger Work Phone: [facility] Start: 01-21-2023 End: 01-21-2023 Emergency department patient visit Dr. Calvin Waldrop Work Phone: [facility] Start: 11-19-2022 Non-patient / Non-visit Dr. Calvin Waldrop Work Phone: [facility] Start: 11-19-2022 Non-patient / Non-visit Dr. Calvin Waldrop Work Phone: [facility] Start: 11-18-2022 Non-patient / Non-visit Dr. Calvin Waldrop Work Phone: [facility] Start: 11-18-2022 Non-patient / Non-visit Dr. Calvin Waldrop Work Phone: [facility] Start: 11-18-2022 End: 11-19-2022 Evaluation and management of inpatient Dr. Calvin Waldrop Work Phone: [facility] Start: 10-31-2022 End: 10-31-[address] Calvin Waldrop Work Phone: [facility] Start: 10-07-2022 End: 10-07-[address] Calvin Waldrop Work Phone: [facility] Start: 09-05-2022 End: 09-06-2022 [facility] Start: 07-21-2022 End: 07-21-2022 Subsequent hospital visit by physician [facility] Work Phone: Radiology Comment on above: Hip pain, acute, lef t [M25.552] Start: 07-21-2022 End: 07-21-2022 Patient encounter procedure Samantha Deleon APRN.CNP Work Phone: [facility] Comment on above: Hip pain, acute, lef t (Primary Dx) Start: 05-31-2022 End: 05-31-2022 Patient encounter procedure Calvin [facility] Start: 02-22-2022 End: 02-22-2022 Emergency department patient visit [facility] Start: 06-10-2021 End: 06-10-2021 Emergency department patient visit Noe Engel [facility] Emergency 07 Procedures Date Procedure [...] unilateral with pelvis 2-3 views Samantha Deleon COUNTERSINKER.AUTO CLAIM REPRESENTATIVE Work Phone: Start: 02-22-2022 Plain chest X-ray Start: 06-21-2020 Mammography Samantha Ri ggs COUNTERSINKER.AUTO CLAIM REPRESENTATIVE Work Phone: Start: 09-11-2015 Colonoscopy Samantha Ri ggs COUNTERSINKER.AUTO CLAIM REPRESENTATIVE Work Phone: Bacteria identified in Blood by Culture DO Milana Garcia Work Phone: Plan of Treatment Date Care Activity Detail Author Start: 03-03-2034 Urine microalbumin profile DTaP,Tdap,Td Vaccine (3 - Td or Tdap) [facility] Start: 08-15-2025 Patient discharge [facility] Start: 08-15-2025 Inhalation therapy procedure [facility] Start: 08-14-2025 [facility] Start: 08-13-2025 End: 08-14-2025 [facility] Start: 08-13-2025 Application of intermittent pneumatic compression device [facility] Start: 08-13-2025 Consultation [facility] Start: 08-13-2025 Care regimes management [facility] Start: 08-13-2025 Notification of physician [facility] Start: 08-13-2025 Speech therapy assessment [facility] Start: 08-12-2025 Following clinical pathway protocol [facility] Start: 08-12-2025 Assessment of risk of venous thromboembolism [facility] Start: 08-12-2025 Care regimes management [facility] Start: 08-12-2025 Insertion of catheter into peripheral vein [facility] Start: 08-12-2025 Lab findings surveillance [facility] Start: 08-12-2025 Measuring intake and output [facility] Start: 08-12-2025 Nil by mouth [facility] Start: 08-12-2025 Notification of physician [facility] Start: 08-12-2025 Oxygen therapy [facility] Start: 08-12-2025 Providing care according to standard [facility] Start: 08-12-2025 Vital signs measurements [facility] Start: 08-12-2025 Streptococcus pyogenes rRNA [Presence] in Throat by Probe [facility] Start: 08-12-2025 Serum inorganic phosphate measurement [facility] Start: 08-12-2025 Urinalysis complete panel - Urine [facility] Start: 08-12-2025 End: 08-12-2025 [facility] Start: 08-12-2025 Verification routine [facility] Start: 08-12-2025 Admission procedure [facility] Start: 08-12-2025 Hospital admission, emergency, from emergency room, medical nature [facility] Start: 08-12-2025 Patient referral to dietitian [facility] Start: 07-20-2025 Patient discharge [facility] Start: 07-18-2025 [facility] Start: 07-17-2025 End: 07-18-2025 [facility] Start: 07-17-2025 Following clinical pathway protocol [facility] Start: 07-17-2025 Ambulation without limitation [facility] Start: 07-17-2025 Assessment of risk of venous thromboembolism [facility] Start: 07-17-2025 Care regimes management [facility] Start: 07-17-2025 Insertion of catheter into peripheral vein [facility] Start: 07-17-2025 Measuring intake and output [facility] Start: 07-17-2025 Notification of physician [facility] Start: 07-17-2025 Oxygen therapy [facility] Start: 07-17-2025 Providing care according to standard [facility] Start: 07-17-2025 Vital signs measurements [facility] Start: 07-17-2025 Prothrombin time [facility] Start: 07-17-2025 Verification routine [facility] Start: 07-17-2025 Hospital admission, emergency, from emergency room, medical nature [facility] Start: 07-17-2025 Admission procedure [facility] Start: 07-17-[facility] Start: 07-17-2025 [facility] Start: 05-28-2025 Patient discharge [facility] Start: 05-26-2025 [facility] Start: 05-25-2025 Assessment of risk of venous thromboembolism [facility] Start: 05-25-2025 Care regimes management [facility] Start: 05-25-2025 Inhalation therapy procedure [facility] Start: 05-25-2025 Introduction of urinary catheter [facility] Start: 05-25-2025 Notification of physician [facility] Start: 05-25-2025 Oxygen therapy [facility] Start: 05-25-2025 Provision of activity privileges [facility] Start: 05-25-2025 Referral to service [facility] Start: 05-25-2025 Vital signs measurements [facility] Start: 05-25-2025 End: 05-25-2025 [facility] Start: 05-25-2025 Following clinical pathway protocol [facility] Start: 05-25-2025 Hospital admission, emergency, from emergency room, medical nature [facility] Start: 05-25-2025 Verification routine [facility] Start: 05-25-2025 Admission procedure [facility] Start: 05-06-2025 Patient discharge [facility] Start: 05-05-2025 Inhalation therapy procedure [facility] Start: 05-01-2025 Referral for physical therapy [facility] Start: 05-01-2025 Referral to occupational therapist [facility] Start: 05-01-2025 Referral to service [facility] Start: 04-29-2025 Oxygen therapy [facility] Start: 04-28-2025 Assessment of risk of venous thromboembolism [facility] Start: 04-28-2025 Notification of physician [facility] Start: 04-28-2025 Vital signs measurements [facility] Start: 04-27-2025 [facility] Start: 04-27-2025 Hepatic function panel [facility] Start: 04-27-2025 Prothrombin time [facility] Start: 04-27-2025 Serum inorganic phosphate measurement [facility] Start: 04-27-2025 Thyroid stimulating hormone measurement [facility] Start: 04-26-2025 Following clinical pathway protocol [facility] Start: 04-26-2025 End: 04-26-2025 [facility] Start: 04-26-2025 Care regimes management [facility] Start: 04-26-2025 Notification of physician [facility] Start: 04-26-2025 Admission procedure [facility] Start: 04-26-2025 Ambulation without limitation [facility] Start: 04-26-2025 Assessment of risk of venous thromboembolism [facility] Start: 04-26-2025 Insertion of catheter into peripheral vein [facility] Start: 04-26-2025 Providing care according to standard [facility] Start: 04-26-2025 Verification routine [facility] Start: 04-26-2025 Hospital admission, emergency, from emergency room, medical nature [facility] Start: 04-26-2025 Patient referral to dietitian [facility] Start: 04-12-2025 [facility] Start: 04-11-2025 [facility] Start: 04-05-2025 [facility] Start: 04-04-2025 [facility] Start: 04-04-2025 End: 04-04-2025 [facility] Start: 07-30-2024 Covid-19 Vaccine () Covid-19 Vaccine () [facility] Start: 07-30-2024 Influenza vaccination [facility] Start: 06-07-2024 Hepatitis B Vaccine (3 of 3 - Hep B Twinrix 3-dose series) Hepatitis B Vaccine (3 of 3 - Hep B Twinrix 3-dose series) [facility] Start: 03-22-2024 Patient referral [facility] Work Phone: Start: 01-24-2024 [facility] Start: 01-24-2024 End: 01-24-2024 [facility] Start: 10-26-2023 HPV TESTING HPV TESTING [facility] Start: 10-26-2023 PAP TESTING PAP TESTING [facility] Start: 10-26-2023 Screening for malignant neoplasm of cervix [facility] Start: 10-15-2023 Elastase, pancreatic (el-1), fecal; quantitative [facility] Start: 10-10-2023 [facility] Start: 10-10-2023 [facility] Start: 09-26-2023 Urine microalbumin profile DTAP,TDAP,TD (2 - Td or Tdap) [facility] Start: 07-29-2023 [facility] Start: 05-24-2023 [facility] Start: 05-04-2023 [facility] Start: 04-11-2023 Patient discharge [facility] Start: 04-10-2023 Following clinical pathway protocol [facility] Start: 04-10-2023 Ambulation without limitation [facility] Start: 04-10-2023 Assessment of risk of venous thromboembolism [facility] Start: 04-10-2023 Care regimes management [facility] Start: 04-10-2023 Inhalation therapy procedure [facility] Start: 04-10-2023 Insertion of catheter into peripheral vein [facility] Start: 04-10-2023 Measuring intake and output [facility] Start: 04-10-2023 Notification of physician [facility] Start: 04-10-2023 Providing care according to standard [facility] Start: 04-10-2023 Tobacco use cessation education [facility] Start: 04-10-2023 [facility] Start: 04-10-[address] [facility] Start: 04-10-2023 Verification routine [facility] Start: 04-10-2023 Admission procedure [facility] Start: 04-10-2023 End: 04-10-2023 Blood culture [facility] Start: 01-21-2023 [facility] Start: 11-19-2022 Patient referral [facility] Work Phone: Start: 11-19-2022 Patient discharge [facility] Start: 11-19-2022 Notification of physician [facility] Start: 11-19-2022 Patient education [facility] Start: 11-19-2022 Pulse taking [facility] Start: 11-19-2022 Taking patient vital signs [facility] Start: 11-19-2022 Wound care [facility] Start: 11-19-2022 [facility] Start: 11-19-2022 Catheterization of left heart [facility] Work Phone: Start: 11-18-2022 Assessment of risk of venous thromboembolism [facility] Start: 11-18-2022 Care regimes management [facility] Start: 11-18-2022 Insertion of catheter into peripheral vein [facility] Start: 11-18-2022 Measuring intake and output [facility] Start: 11-18-2022 Providing care according to standard [facility] Start: 11-18-2022 Referral to contracting manager [facility] Start: 11-18-2022 [facility] Start: 11-18-2022 Following clinical pathway protocol [facility] Start: 11-18-2022 Catheterization of vein [facility] Start: 11-18-2022 Medication not administered [facility] Start: 11-18-2022 Notification of physician [facility] Start: 11-18-2022 Preoperative care [facility] Start: 11-18-2022 [facility] Start: 11-18-2022 Admission procedure [facility] Start: 10-07-2022 Patient referral [facility] Work Phone: Start: 07-30-2022 Influenza vaccination INFLUENZA (#1) [facility] Start: 2022 COLOGUARD (FIT-DNA) COLOGUARD (FIT-DNA) [facility] Start: 2022 Colonoscopy COLONOSCOPY [facility] Start: 2022 COLORECTAL CANCER SCREENING COLORECTAL CANCER SCREENING [facility] Start: [address] COLONOGRAPHY [facility] Start: 2022 FECAL OCCULT BLOOD FECAL OCCULT BLOOD [facility] Start: 2022 Screening for malignant neoplasm of colon [facility] Start: 2022 SIGMOIDOSCOPY SIGMOIDOSCOPY [facility] Start: 07-15-2021 ANNUAL PCP TEAM CHRONIC DISEASE VISIT ANNUAL PCP TEAM CHRONIC DISEASE VISIT [facility] Start: 07-03-2021 Screening for malignant neoplasm of breast Mammogram Screening [facility] Start: 06-21-2021 Hepatitis B screening URINE ALBUMIN:CREATININE RATIO [facility] Start: 06-21-2021 Hepatitis B surface antibody level LDL CHOLESTEROL [facility] Start: 06-21-2021 Mammography MAMMOGRAM [facility] Start: 05-19-2021 COVID-19 VACCINE (3 - Booster for Pfizer series) COVID-19 VACCINE (3 - Booster for Pfizer series) [facility] Start: 11-19-2020 Hemoglobin A1c measurement HbA1C [facility] Start: 11-19-2020 Hemoglobin A1c/Hemoglobin.total in Blood HBA1C [facility] Start: 07-19-2020 3 comp foot exam [facility] Start: 07-19-2020 Diabetic foot examination Diabetic Foot Exam [facility] Start: 12-26-2019 Glaucoma screening Dilated Retinal Exam [facility] Start: 12-26-2019 Hepatitis C antibody, confirmatory test DILATED RETINAL EXAM [facility] Start: 10-20-2014 PNEUMOCOCCAL (2 - PCV) PNEUMOCOCCAL (2 - PCV) [facility] Start: 1995 Anxiety Screening Anxiety Screening [facility] Start: 1995 BP CONTROLLED (<130/80) BP CONTROLLED (<130/80) [facility] Start: 1995 HEPATITIS C SCREENING HEPATITIS C SCREENING [facility] Start: 1995 Hepatitis C screening Hepatitis C Screening [facility] Start: 1995 HIV SCREENING HIV SCREENING [facility] Start: 1995 HIV screening HIV Screening [facility] Start: 1977 HEPATITIS B (1 of 3 - 3-dose series) HEPATITIS B (1 of 3 - 3-dose series) [facility] Alanine aminotransfe rase [Enzymatic activity/volume] in Serum or Plasma [facility] Albumin [Mass/volume ] in Serum or Plasma [facility] Alkaline phosphatase [Enzymatic activity/volume] in Serum or Plasma [facility] Anion gap in Serum or Plasma [facility] Bacteria identified in Blood by Culture Blood Culture [facility] Bilirubin, total measurement [facility] Bilirubin.direct [Ma ss/volume] in Serum or Plasma [facility] BUN/Creatinine ratio [facility] Calcium [Mass/volume ] in Serum or Plasma [facility] Carbon dioxide, tota l [Moles/volume] in Central venous blood [facility] Cardiac event recording [facility] Creatinine [Mass/vol ume] in Serum or Plasma [facility] Erythrocyte mean cor puscular volume determination [facility] Fat [Mass/mass] in Stool [facility] Fat.neutral [Presenc e] in Stool [facility] Glucose [Mass/volume ] in Serum or Plasma [facility] Hematocrit [Volume F raction] of Blood [facility] Hemoglobin [Mass/vol ume] in Blood [facility] Hemoglobin A1c/Hemoglobin.total in Blood [facility] INR in Blood by Coag ulation assay [facility] INR in Blood by Coag ulation assay [facility] Lactic acid measurement [facility] Leukocytes [#/volume] in Blood [facility] Magnesium measurement [facility] Mean corpuscular hem oglobin concentration determination [facility] Mean corpuscular hem oglobin determination [facility] Measurement of renal function [facility] Neutrophil count [facility] Neutrophil percent differential count [facility] Patient Education [facility] Work Phone: Patient referral [facility] Work Phone: Platelets [#/volume] in Blood [facility] Potassium measurement [facility] Red blood cell count [facility] Red cell distributio n width determination [facility] Serum chloride measurement [facility] Sodium measurement [facility] Total protein measurement [facility] Troponin T.cardiac [Mass/volume] in Serum or Plasma by High sensitivity method [facility] Urea nitrogen [Mass/ volume] in Serum or Plasma [facility] [place] Immunization Date Immunization Notes Care Provider Juany griffith 10-16-2022 influenza virus vacc ine, unspecified formulation Aretha Schofield COUNTERSINKER.AUT[employer] CLAIM REPRESENTATIVE Work Phone: [facility] 09-16-2018 influenza, injectabl e, quadrivalent, contains preservative Samantha Deleon COUNTERSINKER.[facility] Work Phone: [facility] Work Phone: 11-19-2015 influenza, injectabl e, quadrivalent, contains preservative Samantha Deleon COUNTERSINKER.[facility] Work Phone: [facility] 10-02-2014 influenza, seasonal, injectable Samantha Deleon COUNTERSINKER.[facility] Work Phone: [facility] Work Phone: 09-27-2014 influenza, injectabl e, quadrivalent, preservative free DO Milana Garcia Work Phone: [facility] 09-27-2014 influenza, seasonal, injectable [facility] 10-20-2013 pneumococcal polysaccharide vaccine, 23 valent Samantha Deleon COUNTERSINKER.[facility] Work Phone: [facility] Work Phone: 09-27-2013 Pneumococcal Vaccine [facility] Work Phone: 09-27-2013 pneumococcal vaccine , unspecified formulation Dr. Calvin Waldrop Work Phone: [facility] 09-26-2013 tetanus toxoid, redu lenin diphtheria toxoid, and acellular pertussis vaccine, adsorbed Samantha Deleon COUNTERSINKER.AUTO CLAIM REPRESENTATIVE Work Phone: [facility] 09-15-2013 influenza virus vacc ine, unspecified formulation Samantha Deleon COUNTERSINKER.AUTO CLAIM REPRESENTATIVE Work Phone: [facility] Work Phone: 09-15-2013 influenza, injectabl e, quadrivalent, preservative free DO Milana Garcia Work Phone: [facility] 09-15-2013 influenza, seasonal, injectable [place] Payers Date Payer Category Payer Self-pay 2022 Unknown 2020 Unknown [id number] 2017 Unknown [id number] Private Health Insurance [facility] [id number] Self-pay [id number] Unknown [id number] Unknown [id number] Unknown [id number] 2.16.840.1.006725.3.579.2.4 62 Unknown [id number] 2.16.840.1.119969.3.579.2.4 62 Unknown [id number] 2.16.840.1.711779.3.579.2.4 62 Unknown [id number] 2.16.840.1.669386.3.579.2.4 62 Unknown [id number] 2.16.840.1.204274.3.579.2.4 62 Unknown [id number] 2.16.840.1.516750.3.579.2.4 62 Unknown [id number] 2.16.840.1.346733.3.579.2.4 62 Unknown [id number] 2.16.840.1.585738.3.579.2.4 62 Unknown [id number] 2.16.840.1.568580.3.579.2.4 62 Unknown [id number] 2.16.840.1.657909.3.579.2.4 62 Unknown [id number] 2.16.840.1.504219.3.579.2.4 62 Unknown [id number] 2.16.840.1.207702.3.579.2.4 62 Unknown [id number] 2.16.840.1.310001.3.579.2.4 62 Unknown [id number] 2.16.840.1.831242.3.579.2.4 62 Unknown [id number] 2.16.840.1.765226.3.579.2.4 62 Unknown [id number] 2.16.840.1.025158.3.579.2.4 62 Unknown [id number] 2.16.840.1.662847.3.579.2.4 62 Unknown [id number] 2.16.840.1.159622.3.579.2.4 62 Unknown [id number] 2.16.840.1.068418.3.579.2.4 62 Unknown [id number] 2.16.840.1.760452.3.579.2.4 62 Unknown [id number] 2.16.840.1.035623.3.579.2.4 62 Unknown [id number] 2.16.840.1.141459.3.579.2.4 62 Unknown [id number] 2.16.840.1.566738.3.579.2.4 62 Unknown [id number] 2.16.840.1.040625.3.579.2.4 62 Unknown [id number] 2.16.840.1.462688.3.579.2.4 62 Unknown [id number] 2.16.840.1.160646.3.579.2.4 62 Unknown [id number] 2.16.840.1.907660.3.579.2.4 62 Unknown [id number] 2.16.840.1.289250.3.579.2.4 62 Unknown [id number] 2.16.840.1.003963.3.579.2.4 62 Unknown [id number] 2.16.840.1.023994.3.579.2.4 62 Unknown [id number] 2.16.840.1.038172.3.579.2.4 62 Unknown [id number] 2.16.840.1.799561.3.579.2.4 62 Unknown [id number] 2.16.840.1.245585.3.579.2.4 62 Unknown [id number] 2.16.840.1.145181.3.579.2.4 62 Unknown [id number] 2.16.840.1.832745.3.579.2.4 62 Social History Date Type Detail Facility [facility] Start: 02-22-2022 End: 01-24-2024 Tobacco smoking consumption unknown [facility] Start: 04-14-2021 Sober [facility] Start: 04-14-2021 None [facility] Start: 04-14-2021 Cigarettes [facility] Start: 1975 Sex Assigned At Female C [facility] Start: 07-21-2022 [facility] Start: 11-29-1996 End: 07-11-2020 History of tobacco use Current smoker [facility] Start: 11-29-1996 End: 07-11-2020 History of tobacco use Cigarette Smoker [facility] Start: 11-04-2020 End: 07-21-2022 Cigarettes smoked current (pack per day) - Reported 0.5 [facility] Start: 07-21-2022 Tobacco use and exposure Smokeless tobacco non-user [facility] Start: 07-21-2022 End: 04-22-2024 Alcohol intake Current drinker of alcohol (finding) [facility] Start: 06-05-2020 End: 08-01-2020 History SDOH Alcohol Frequency 3 [facility] Start: 06-05-2020 End: 08-01-2020 History SDOH Alcohol Std Drinks 1 [facility] Start: 06-05-2020 End: 08-01-2020 History SDOH Alcohol Binge 2 [facility] Start: 09-16-2018 History SDOH 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 [facility] Start: 01-15-2020 History SDOH Social Connections Living 8 [facility] Start: 06-05-2020 History SDOH Physica l Activity DPW 0 [facility] Start: 07-01-2020 History SDOH Financial 5 [facility] Start: 01-14-2020 Education 12 [facility] Start: 07-21-2022 Tobacco Comment stopped 3 weeks ago [facility] Start: 09-26-2014 With Family [facility] Start: 06-05-2020 End: 11-04-2020 Social connection and isolation panel [facility] Frequency of Communication with Friends and Family Not on file [facility] Do you belong to any clubs or organizations such as anabaptism groups, unions, fraternal or athletic groups, or school groups? No [facility] How often to you hav e a drink containing alcohol? 2-4 times a month [facility] How many standard drinks containing alcohol do you have on a typical day? 1 or 2 [facility] How often do you hav e 6 or more drinks on 1 occasion? Less than monthly [facility] Do you feel stress - tense, restless, nervous, or anxious, or unable to sleep at night because your mind is troubled all the time - these days [OSQ] To some extent [facility] (I/We) worried mary er (my/our) food would run out before (I/we) got money to buy more. Never true [facility] Start: 07-15-2020 Gender identity Identifies as female gender (finding) [facility] Start: 07-15-2020 Sexual orientation Heterosexual (chucky acevedo) [facility] Start: 04-04-2025 Tobacco smoking stat us [employer] Current some day smoker [facility] Start: 04-11-2025 End: 08-13-2025 Tobacco smoking status NHIS Current Light tobacco smoker [facility] NEGATED: Highlighted row [facility] NEGATED: Highlighted row Not [facility] Goals Date Patient Goal Desired Activity /State Functional Status Date Assessment Result Facility 08-15-2025 Functional status Ambulates [facility] Work Phone: 07-20-2025 Functional status Up ad seble [facility] Work Phone: 05-28-2025 Functional status Ambulates;Up ad seble [facility] Work Phone: 05-27-2025 Functional status None [facility] Work Phone: 05-06-2025 Functional status Bathroom Privilege [facility] Work Phone: 04-11-2023 Functional status Activity Ability Indepe ndent [facility] Work Phone: 04-11-2023 Functional status Ambulates;Bathroom Priv ilege [facility] Work Phone: 11-19-2022 Functional status Ambulates [facility] Work Phone: 11-18-2022 Functional status Assistive Devices None [facility] Work Phone: Mental Status Date Assessment Result Facility 08-15-[address] [facility] Work Phone: 08-15-2025 Cognitive function Voice/Name [facility] Work Phone: 08-12-2025 Cognitive function Voice/Name [facility] Work Phone: 07-19-2025 Cognitive function Voice/Name [facility] Work Phone: 05-28-2025 Cognitive function Voice/Name [facility] Work Phone: 05-06-2025 Cognitive function Voice/Name [facility] Work Phone: 04-11-2025 Cognitive function Voice/Name [facility] Work Phone: 01-24-2024 Cognitive function Voice/Name [facility] Work Phone: 10-10-2023 Cognitive function Level Of Cons ciousness Awake;Alert;Appropriate [facility] Work Phone: 07-29-2023 Cognitive function Level Of Cons ciousness Awake;Alert;Appropriate;Follow s Commands [facility] Work Phone: 05-24-2023 Cognitive function Voice/Name [facility] Work Phone: 05-04-2023 Cognitive function Level Of Cons ciousness Awake;Alert;Appropriate [facility] Work Phone: 04-11-2023 Cognitive function Voice/Name [facility] Work Phone: 04-09-2023 Cognitive function Level Of Cons ciousness Awake;Alert;Appropriate;Follow s Commands [facility] Work Phone: 03-22-2023 Cognitive function Level Of Cons ciousness Awake;Alert;Appropriate;Follow s Commands [facility] Work Phone: 01-21-2023 Cognitive function Voice/Name [facility] Work Phone: 11-19-2022 Cognitive function Voice/Name [facility] Work Phone: 09-05-2022 Cognitive function Level Of Cons ciousness Awake;Alert;Appropriate [facility] Work Phone: 02-22-2022 Cognitive function Level Of Cons ciousness Awake;Alert;Appropriate;Follow s Commands;Responds to vocal stimuli [facility] Work Phone: Clinical Notes 07-17-2019 to 08-15-2025 Note Date & Type Note Facility 08-15-2025 Discharge summary Note Date/Time August 15, 2025 3:02pm [facility] Medical Records Department [address] [place], [place] [address]alexandra [place] [address] Discharge Summary 08/15/25 1455 MR#: [id number] Acct: [id number] Name: JOSEPH RINCON Rep #:[id number] : 1975 50 From: Zev Zhang PCP: Dr. Abisai Haley MD Status:ADM [facility] Prov[facility] Date of Admission: 08/12/25 [...] closed x 2. Repeat bicarb is 26.5. [id number]. 08/15: Acid-base disorder resolved. 3. Acute on [...] is evidenced by: 10% unintentional weight loss. 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 DVT prophylaxis: Patient has intermittent thrombocytopenia [...] Freq: Status: Active Protocol: Document 08/13/25 09:43 [facility] (Rec: 08/13/25 09:43 SLA [id number]) Nutrition Malnutrition Evidence of Yes Malnutrition Exists Clinical Problem Acute Disease or Injury Related Malnutrition Etiology Pt with gi dysfunction w/ n/v port captain and po intake inadequate to meet estimated nutritional needs Signs/Symptoms evidenced by n/v port captain x 24 hours and po intake meeting < 75% of est nutritional needs x 2 wks port captain, also w/ 18.3 % unplanned wt loss x 9 mo and 8.1% unplanned wt loss x < 1 month port captain - sig for malnutrition. Status Active [...] Self Care Charges/Coding Visit Charges Inpatient E&M: 49420 Disch Hosp >30min 08/15/25 1502 <Electronically signed by Zev Tucker MD> Cosigner Signature (if applicable): CC: Dr. Abisai Haley MD; Dr. Zev Tucker MD~ Signed [facility] Work Phone: 1(175) 947-987709-17-2025 Discharge summary Author Zev Tucker [facility] Note Date/Time August 15, 2025 2:55pm [facility] Medical Records Department [address] [place] [address] Instructions for Home/Discharge Instructions 08/15/25 1447 MR#: [id number] Acct: [id number] Name: JOSEPH RINCON Rep #:[id number] : 1975 50 From: Zev Zhang PCP: [...] MD; Dr. Praful Olivo MD ~ Signed [facility] Work Phone: 1(443) 763-855909-17-2025 Procedure [facility] 08-15-2025 Progress note Author [facility] Note Date/Time August 15, 2025 1:45pm [facility] Medical Records Department [address] [place] [address] Progress Note - Infect Disease 08/15/25 1344 MR#: [id number] Acct: [id number] Name: JOSEPH RINCON Rep #:[id number] : 1975 50 From: Praful katz MD PCP: Dr. Abisai Haley MD Status:ADM IN Location: [place] [address] Physical Exam Narrative Feeling better, less nausea [...] Cosigner Signature (if applicable): CC: ~ Signed [facility] Work Phone: 1(495) 469-144909-17-2025 [facility]09-16-2025 Progress note Author Zev Tucker [facility] Note Date/Time August 14, 2025 2:11pm [facility] Medical Records Department [address] [place] [address] Progress Note - Hospitalist 08/14/25 1400 MR#: [id number] Acct: [id number] Name: JOSEPH RINCON Rep #:[id number] : 1975 50 From: Zev Zhang PCP: Dr. Abisai Haley MD Status:ADM IN Location: [place] [address]- 1 Reason for Visit Chief Complaint: Persistent [...] 08/13/25 09:43 [facility] (Rec: 08/13/25 09:43 SLA [id number]) Nutrition Malnutrition Evidence of Yes Malnutrition Exists Clinical Problem Acute Disease or Injury Related Malnutrition Etiology Pt with gi dysfunction w/ n/v port captain and po intake inadequate to meet estimated nutritional needs Signs/Symptoms evidenced by n/v port captain x 24 hours and po intake meeting < 75% of est nutritional needs x 2 wks port captain, also w/ 18.3 % unplanned wt loss x 9 mo and 8.1% unplanned wt loss x < 1 month port captain - sig for malnutrition. Status Active [...] closed x 2. Repeat bicarb is 26.5. Qstdgltk482. 3. Acute on chronic recurrent alcoholic pancreatitis: [...] is evidenced by: 10% unintentional weight loss. 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 DVT prophylaxis: Patient has intermittent thrombocytopenia [...] shock if needed Total time spent in jgcj-gj-lqyn encounter in discussion of advanced directive 17 [...] 223 H Charges/Coding Visit Charges Inpatient E&M: 82197 Subs Hosp L2 08/14/25 1411 <Electronically signed by Zev Tucker MD> Cosigner Signature (if applicable): CC: ~ Signed [facility] Work Phone: 1(744) 231-604509-16-2025 Consult note Author Praful Olivo [facility] Note Date/Time August 14, 2025 10:24am [facility] Medical Records Department [address] [place] [address] Consultation - Infectious Dx 08/14/25 1020 MR#: [id number] Acct: [id number] Name: JOSEPH RINCON Rep #:[id number] : 1975 50 From: Praful katz MD PCP: Dr. Abisai Haley MD Status:ADM IN Location: [place] [address] Assessment & Plan Assessment/Plan (1) DKA (diabetic [...] performed and neg except as noted above. [facility] Medical History Admitted to alcohol detoxification center [...] 08/13/25 09:43 [facility] (Rec: 08/13/25 09:43 SLA [id number]) Nutrition Malnutrition Evidence of Yes Malnutrition Exists Clinical Problem Acute Disease or Injury Related Malnutrition Etiology Pt with gi dysfunction w/ n/v port captain and po intake inadequate to meet estimated nutritional needs Signs/Symptoms evidenced by n/v port captain x 24 hours and po intake meeting < 75% of est nutritional needs x 2 wks port captain, also w/ 18.3 % unplanned wt loss x 9 mo and 8.1% unplanned wt loss x < 1 month port captain - sig for malnutrition. Status Active [...] applicable): CC: Dr. Abisai Haley MD~ Signed [facility] Work Phone: 1(132) 454-435909-15-2025 Progress note Author [facility] Note Date/Time August 15, 2025 5:41pm [facility] Medical Records Department [address] [place] [address] Progress Note - Hospitalist 08/13/25 1528 MR#: [id number] Acct: [id number] Name: JOSEPH RINCON Salbador Rep #:[id number] : 1975 50 From: Zev Zhang PCP: Dr. Abisai Haley MD Status:ADM IN Location: [place] [address] Hospitalist Note Blood culture prelim positive GNR. Patient leukocytosis improved and no fever. No tachycardia. Continue IV Unasyn. 08/13/25 1528 <Electronically signed by Zev Tucker MD> Cosigner Signature (if applicable): CC: ~ Signed [facility] Work Phone: 1(451) 699-695809-15-2025 Progress note Author [facility] Note Date/Time August 13, 2025 8:33am [facility] Medical Records Department [address] [place] [address] Progress Note - Hospitalist 08/13/25 0823 MR#: [id number] Acct: [id number] Name: JOSEPH RINCON Salbador Rep #:[id number] : 1975 50 From: Zev Zhang PCP: [...] Clarity Clear, Urine pH 6.5, Ur Specific [place] 1.010, Urine Protein 100 H, Urine Glucose [...] 80.1 H, Lymph % (Auto) 13.0 L, Rock % (Auto) 6.0, Eos % (Auto) 0.2, [...] Pancreatitis without phlegmon or pseudocyst. Reading Location: [facility] Physical Exam Narrative Seen and [...] closed x 2. Repeat bicarb is 26.5. Jzfkcktn252. 3. Acute on chronic recurrent alcoholic pancreatitis: [...] is evidenced by: 10% unintentional weight loss. 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 DVT prophylaxis: Patient has intermittent thrombocytopenia [...] shock if needed Total time spent in dvkl-bd-vvmn encounter in discussion of advanced directive 17 [...] Base Excess 0, O2 Saturation 95, ABG nJZ859.6 L, ABG pO2 63 L, O2 Delivery [...] 270 H Charges/Coding Visit Charges Inpatient E&M: 21011 Subs Hosp L3 08/13/25 0833 <Electronically signed by Zev Tucker MD> Cosigner Signature (if applicable): CC: ~ Signed [facility] Work Phone: 1(508) 883-554809-14-2025 History and physical note Author Zev Tucker [facility] Note Date/Time August 12, 2025 1:38pm [facility] Medical Records Department [address] [place] [address] H&P Exam - Hospitalist 08/12/25 1302 MR#: [id number] Acct: [id number] Name: JOSEPH RINCON Rep #:[id number] : 1975 50 From: Zev Zhang PCP: [...] fluid leading to metabolic alkalosis. Lipase elevated. [facility] Medical History Admitted to alcohol detoxification center [...] Pancreatitis without phlegmon or pseudocyst. Reading Location: [facility] Assessment & Plan Assessment/Plan (1) [...] is evidenced by: 10% unintentional weight loss. 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 Abisai Haley MD; Dr. Zev Tucker MD~ Signed [facility] Work Phone: 1(164) 247-219109-14-2025 Discharge summary Author Wellington Rader [facility] Note Date/Time August 12, 2025 1:00pm [facility] Medical Records Department [address] [place] [address] Emergency Department Summary 08/12/25 MR#: [id number] Acct: [id number] Name: JOSEPH RINCON Rep #:[id number] : 1975 50 From: Wellington Rader MD [...] fevers or chills. No known sick contacts. [facility] Medical History Admitted to alcohol detoxification center [...] Pancreatitis without phlegmon or pseudocyst. Reading Location: [id number] Management Discussion w/another healthcare provider: Hospitalist Critical Care Time Critical Care Time: Yes Critical care time (excluding procedures): 30-74 minutes (41 min), Including time spent:, Discussing w/Patient &/or Family/Local [employer], Discussing w/Consultants, Arranging Admission or Transfer and Performing Direct Patient Care at Bedside Discharge Plan Dx/Rx/DC Orders Clinical Impression: Acute on chronic pancreatitis, LUI (acute kidney injury), Hyperglycemia due to type 2 diabetes mellitus, Ketosis Disposition Disposition: Acute Care Hospital [facility] What to do if you have Problems For any increased pain, shortness of breath, bleeding, nausea or vomiting, chestpain, or any unexpected problems, contact your Primary Care Provider. Call [facility] ([phone]) or report to the closest Emergency Room. Call 911 if necessary. 08/12/25 1300 <Electronically signed by Wellington Rader MD> Cosigner Signature (if applicable): CC: Dr. Abisai Haley MD ~ Signed [facility] Work Phone: 1(131) 324-356009-14-2025 Radiology Diagnostic [facility] [id number] [facility]08-22-2025 Hospital Discharge instructionsAdditional Instructions Date of Discharge: 07/20/25[facility] Work Phone: 1(131) 211-422208-22-2025 Progress note Author Canelo Myers [facility] Note Date/Time July 20, 2025 9: 04am [facility] Medical Records Department [address] [place] [address] Progress Note - Hospitalist 07/20/25 0731 MR#: [id number] Acct: [id number] Name: JOSEPH RINCON Rep #:[id number] : 1975 50 From: Canelo Myers MD PCP: Dr. Abisai Haley MD Status:ADM [facility] Reason for Visit Chief Complaint: Abdominal pain [...] % (Auto) 66.7, Lymph % (Auto) 19.5, Rock % (Auto) 11.8 H, Eos % (Auto) [...] 40 minutes Charges/Coding Visit Charges Inpatient E&M: 78765 Subs Hosp L2 07/20/25 0904 <Electronically signed by Canelo Myers MD> Cosigner Signature (if applicable): CC: ~ Signed [facility] Work Phone: 1(628) 224-795508-21-2025 Progress note Author Canelo Myers [facility] Note Date/Time July 19, 2025 9: 41am [facility] Medical Records Department [address] [place] [address] Progress Note - Hospitalist 07/19/25937 MR#: [id number] Acct: [id number] Name: JOSEPH RINCON Rep #:[id number] : 1975 50 From: Canelo Myers MD PCP: Dr. Abisai Haley MD Status:ADM IN Location: [place] 065629-1 Reason for Visit Chief Complaint: Abdominal pain [...] % (Auto) 61.0, Lymph % (Auto) 25.9, Rock % (Auto) 10.3 H, Eos % (Auto) [...] 40 minutes Charges/Coding Visit Charges Inpatient E&M: 05659 Subs Hosp L2 07/19/25 0941 <Electronically signed by Canelo Myers MD> Cosigner Signature (if applicable): CC: ~ Signed [facility] Work Phone: 1(172) 389-531608-20-2025 Progress note Author Canelo Myers [facility] Note Date/Time July 18, 2025 9: 43am [facility] Medical Records Department [address] [place] [address] Progress Note - Hospitalist 07/18/25 0745 MR#: [id number] Acct: [id number] Name: JOSEPH RINCON Rep #:[id number] : 1975 50 From: Canelo Myers MD PCP: Dr. Abisai Haley MD Status:ADM IN Location: [place] [address] Reason for Visit Chief Complaint: Abdominal pain [...] 80.3 H, Lymph % (Auto) 11.2 L, Rock % (Auto) 7.2, Eos % (Auto) 0.3, [...] Clarity Clear, Urine pH 6.5, Ur Specific [place] 1.010, Urine Protein 30 H, Urine Glucose [...] 73.2 H, Lymph % (Auto) 14.1 L, Rock % (Auto) 9.2, Eos % (Auto) 2.4, [...] retroperitoneum related to the pancreatitis. Reading Location: [facility] Physical Exam Narrative GENERAL: cooperative but [...] 50 minutes Charges/Coding Visit Charges Inpatient E&M: 72077 Subs Hosp L3 07/18/25 0943 <Electronically signed by Canelo Myers MD> Cosigner Signature (if applicable): CC: ~ Signed [facility] Work Phone: 1(363) 924-525008-19-2025 Discharge summary Author Francisco Colon [facility] Note Date/Time July 17, 2025 3: 13pm [facility] Medical Records Department [address] [place] [address] Emergency Department Summary 07/17/25 MR#: [id number] Acct: [id number] Name: JOSEPH RINCON Rep #:[id number] : 1975 50 From: Francisco Colon MD PCP: Dr. Abisai Haley MD Status:ADM IN [place] [facility] [place] HPI HPI - GI History of Present [...] 80.3 H Lymph % (Auto) 11.2 L Rock % (Auto) 7.2 Eos % (Auto) 0.3 [...] Clarity Clear Urine pH 6.5 Ur Specific [place] 1.010 Urine Protein 30 H Urine Glucose [...] retroperitoneum related to the pancreatitis. Reading Location: [facility] Discharge Plan Triage Chief Complaint: Abd [...] MD [Primary Care Provider] - Print Language: Puerto Rican Disposition Disposition: Acute Care Hospital [facility] What to do if you have Problems For any increased pain, shortness of breath, bleeding, nausea or vomiting, chestpain, or any unexpected problems, contact your Primary Care Provider. Call [facility] ([phone]) or report to the closest Emergency Room. Call 911 if necessary. 07/17/25 1513 <Electronically signed by Francisco Colon MD> Cosigner Signature (if applicable): CC: Dr. Abisai Haley MD ~ Signed [facility] Work Phone: 1(418) 256-292208-19-2025 History and physical note Author Canelo Myers [facility] Note Date/Time July 17, 2025 1: 22pm [facility] Medical Records Department [address] [place] [address] H&P Exam - Hospitalist 07/17/25 1304 MR#: [id number] Acct: [id number] Name: JOSEPH RINCON Rep #:[id number] : 1975 50 From: Canelo Myers MD PCP: Dr. Abisai Haley MD Status:ADM IN Location: [facility]3 UT618-2 HPI - General General Date of Admission: [...] to regular nursing floor for further manage [facility] Medical History Admitted to alcohol detoxification center [...] 80.3 H, Lymph % (Auto) 11.2 L, Rock % (Auto) 7.2, Eos % (Auto) 0.3, [...] Clarity Clear, Urine pH 6.5, Ur Specific [place] 1.010, Urine Protein 30 H, Urine Glucose [...] retroperitoneum related to the pancreatitis. Reading Location: [id number] Assessment & Plan Assessment/Plan (1) Acute alcoholic [...] Multi Select Codes Visit Charges Visit Charges: 20302 Init Hosp L3 07/17/25 1322 <Electronically signed by Canelo Myers MD> Cosigner Signature (if applicable): CC: Dr. Abisai Haley MD; Dr. Canelo Myers MD~ Signed [facility] Work Phone: 1(810) 279-424208-19-2025 Radiology Diagnostic study [facility]06-30-2025 Consult note [facility] Medical Records Department [address] [place] [address] Counseling Note - Pharmacy 05/28/25 1332 MR#: [id number] Acct: [id number] Name: JOSEPH RINCON Rep #:[id number] : 1975 50 From: Sho Leyva PCP: Dr. Abisai Haley MD Status:ADM IN Location: [place] [address] Pharmacy [place] Med Reconciliation Pharmacy Service has performed discharge [...] Signature (if applicable): Date CC: ~ Signed [facility]06-30-2025 Hospital Discharge instructionsAdditional Instructions Follow up with outpatient detox (180) as directed Date of Discharge: 05/28/25[facility] Work Phone: 1(151) 109-248206-30-2025 Discharge summary [facility] Medical Records Department [address] [address] Discharge Summary 05/28/25 1313 MR#: [id number] Acct: [id number] Name: JOSEPH RINCON Rep #:[id number] : 1975 50 From: Mao Becker DO PCP: Dr. Abisai Haley MD Status:ADM IN [facility] Providers Date of Admission: 05/25/25 Date of Discharge: 05/28/25 Primary Care Physician: Abisai Haley MD Reason For Visit: ETOH DETOXIFICATION, WITHDRAWL Diagnosis Discharge Diagnosis (1) Admitted to alcohol detoxification center: Status: Acute Plan 1. Acute alcohol withdrawal-patient will remain on her present medications, addiction public health social worker will talk with the patient #2 hypomagnesemia-magnesium [...] was seen in the emergency room at [facility] for alcohol detox. She had been admitted previously only several weeks ago for pancreatitis and alcohol withdrawal and had already gone through the program at that time. Her toxicology screen was positive for barbiturates and benzodiazepines, but alcohol level was 312. [facility], orders were entered using the alcohol detox order set and she was seen by addiction public health social worker. Patient had minimal withdrawal symptoms to hospitalization [...] Self Care Charges/Coding Visit Charges Inpatient E&M: 03877 Disch Hosp >30min 05/28/25 1316 Cosigner Signature (if applicable): CC: Dr. Abisai Haley MD; Dr. Mao Becker, ~ Signed [facility]06-30-2025 [facility] Discharge summary [facility] Medical Records Department [address] [place] [address] Instructions for Home/Discharge Instructions 05/28/25 1020 MR#: [id number] Acct: [id number] Name: JOSEPH RINCON Rep #:[id number] : 1975 50 From: Mao Becker DO [...] MD; Dr. Abisai Haley MD ~ Signed [facility]06-30-2025 Discharge summary Author Mao [facility]essent[facility] Note Date/Time May 28, 2025 12:4 9pm [facility] Medical Records Department [address] [place] [address] Instructions for Home/Discharge Instructions 05/28/25 1020 MR#: [id number] Acct: [id number] Name: JOSEPH RINCON Rep #:[id number] : 1975 50 From: Mao Becker DO [...] Attending Provider: Mao Becker Primary Care Provider: Abiasi Haley Consulting Providers: Myra Null Instructions Additional [...] MD; Dr. Abisai Haley MD ~ Signed [facility] Work Phone: 1(746) 237-779806-29-2025 Progress note Author Mao [facility] Note Date/Time May 27, 2025 3:33 pm [facility] Medical Records Department [address] [place] [address] Progress Note - Hospitalist 05/27/25 1531 MR#: [id number] Acct: [id number] Name: JOSEPH RINCON Rep #:[id number] : 1975 50 From: Mao Becker DO PCP: Dr. Abisai Haley MD Status:ADM IN [place] [facility] [place] WJ913-4 Subjective Subjective Patient was seen and examined [...] will remain on her present medications, addiction public health social worker will talk with the patient #2 hypomagnesemia-magnesium [...] team: 35-minute Charges/Coding Visit Charges Inpatient E&M: 29314 Subs Hosp L2 05/27/25 1533 <Electronically signed by Mao Becker DO> Cosigner Signature (if applicable): CC: ~ Signed [facility] Work Phone: 1(214) 591-308006-29-2025 Progress note [facility] Medical Records Department [address] [place] [address] Progress Note - Hospitalist 05/27/25 1531 MR#: [id number] Acct: [id number] Name: JOSEPH RINCON Rep #:[id number] : 1975 50 From: Mao Becker DO PCP: Dr. Abisai Haley MD Status:ADM IN [facility] Subjective Subjective Patient was seen and examined [...] will remain on her present medications, addiction public health social worker will talk with the patient #2 hypomagnesemia-magnesium [...] team: 35-minute Charges/Coding Visit Charges Inpatient E&M: 51911 Subs Hosp L2 05/27/25 1533 Cosigner Signature (if applicable): CC: ~ Signed [facility]06-28-2025 Progress note Author Mao Becker [facility] Note Date/Time May 26, 2025 1:39 pm [facility] Medical Records Department [address] [place] [address] Progress Note - Hospitalist 05/26/25 1335 MR#: [id number] Acct: [id number] Name: JOSEPH RINCON Rep #:[id number] : 1975 50 From: Mao Becker DO PCP: Dr. Abisai Haley MD Status:ADM IN [facility] Subjective Subjective Patient was seen and examined [...] will remain on her present medications, addiction public health social worker will talk with the patient #2 hypomagnesemia-magnesium [...] team: 35-minute Charges/Coding Visit Charges Inpatient E&M: 11157 Subs Hosp L2 05/26/25 1339 <Electronically signed by Mao Becker DO> Cosigner Signature (if applicable): CC: ~ Signed [facility] Work Phone: 1(206) 434-888106-28-2025 Progress note [facility] Medical Records Department [address] [place] [address] Progress Note - Hospitalist 05/26/25 1335 MR#: [id number] Acct: [id number] Name: JOSEPH RINCON Rep #:[id number] : 1975 50 From: Mao Becker DO PCP: Dr. Abisai Haley MD Status:ADM IN Location: [facility]3 EL087-3 Subjective Subjective Patient was seen and examined [...] will remain on her present medications, addiction public health social worker will talk with the patient #2 hypomagnesemia-magnesium [...] team: 35-minute Charges/Coding Visit Charges Inpatient E&M: 09184 Subs Hosp L2 05/26/25 133 Cosigner Signature (if applicable): CC: ~ Signed [facility]06-27-2025 Progress note Author Mao [facility] Note Date/Time May 25, 2025 5:04 pm [facility] Medical Records Department [address] [place] [address] Progress Note - Hospitalist 05/25/251701 MR#: [id number] Acct: [id number] Name: JOSEPH RINCON Rep #:[id number] : 1975 50 From: Mao Becker DO PCP: Dr. Abisai Haley MD Status:ADM IN Location: [place] [address] Hospitalist Note Patient was seen and examined today, she was admitted for alcohol detox-patient had just been discharged on 05/06/2025 after completing alcohol detox and treatment for pancreatitis. There is a note from addiction public health social worker thatstates the patient will follow-up with 180 for outpatient [facility] treatment. 05/25/251703 <Electronically signed by Mao Becker DO> Cosigner Signature (if applicable): CC: ~ Signed [facility] Work Phone: 1(360) 610-951806-27-2025 Progress note [facility] Medical Records Department [address] [place] [address] Progress Note - Hospitalist 05/25/25 1702 MR#: [id number] Acct: [id number] Name: JOSEPH RINCON Rep #:[id number] : 1975 50 From: Mao Becker DO PCP: Dr. Abisai Haley MD Status:ADM IN Location: [place] [address] Hospitalist Note Patient was seen and examined today, she was admitted for alcohol detox-patient had just been discharged on 05/06/2025 after completing alcohol detox and treatment for pancreatitis. There is a note from addiction public health social worker thatstates the patient will follow-up with 180 for outpatient [facility] treatment. 05/25/25 170 Cosigner Signature (if applicable): CC: ~ Signed [facility]06-27-2025 Discharge summary Author Andrew Maurice [facility] Note Date/Time May 25, 2025 2:37 am [facility] Medical Records Department [address] [place] [address] Emergency Department Summary 05/25/25 MR#: [id number] Acct: [id number] Name: JOSEPH RINCON Rep #:[id number] : 1975 50 From: Andrew elizondo DO PCP: Dr. Abisai Haley MD Status:ADM IN Location: [place] [address] HPI History of Present Illness Chief Complaint: [...] intact Psych: Cooperative, appropriate mood and affect [facility] Medical History Pancreatitis Hypokalemia Nausea & vomiting [...] (Auto) 49.9 Lymph % (Auto) 41.1 H Rock % (Auto) 7.7 Eos % (Auto) 0.7 [...] Clarity Clear Urine pH 6.0 Ur Specific [place] 1.015 Urine Protein 30 H Urine Glucose [...] Discharge Plan Disposition Disposition: Acute Care Hospital [facility] Discharge Date/Time: 05/25/25 02:28 What to do if you have Problems For any increased pain, shortness of breath, bleeding, nausea or vomiting, chestpain, or any unexpected problems, contact your Primary Care Provider. Call [facility] ([phone]) or report to the closest Emergency Room. Call 911 if necessary. 05/25/25 0237 <Electronically signed by Andrew Maurice DO> Cosigner Signature (if applicable): CC: Dr. Abisai Haley MD ~ Signed [facility] Work Phone: 1(389) 934-578406-27-2025 History and physical note Author Myra Null [facility] Note Date/Time May 25, 2025 1:54 am [facility] Medical Records Department [address] [place] [address] H&P Exam - Hospitalist 05/25/25 0037 MR#: [id number] Acct: [id number] Name: JOSEPH RINCON Rep #:[id number] : 1975 50 From: Myra Null MD [...] (>1/5 vodka daily) who presents to the [facility] ED on 05/25/25 with history of [...] 1, Zofran 4 mg IV x 1. [facility] Medical History Pancreatitis Hypokalemia Nausea & vomiting [...] (>1/5 vodka daily) who presents to the [facility] ED on 05/25/25 with history of [...] admission presentation. Charges/Coding Visit Charges Inpatient E&M: 11074 Init Hosp L3 05/25/25 0154 <Electronically signed by Myra Null MD> Cosigner Signature (if applicable): CC: Dr. Myra Null MD; Dr. Abisai Haley MD~ Signed [facility] Work Phone: 1(903) 337-683806-27-2025 Discharge summary [facility] Medical Records Department [address] [place] [address] Emergency Department Summary 05/25/25 MR#: [id number] Acct: [id number] Name: JOSEPH RINCON Rep #:[id number] : 1975 50 From: Andrew elizondo DO PCP: Dr. Abisai Haley MD Status:ADM IN Location: [place] [address] HPI History of Present Illness Chief Complaint: [...] intact Psych: Cooperative, appropriate mood and affect [facility] Medical History Pancreatitis Hypokalemia Nausea & vomiting [...] (Auto) 49.9 Lymph % (Auto) 41.1 H Rock % (Auto) 7.7 Eos % (Auto) 0.7 [...] Clarity Clear Urine pH 6.0 Ur Specific [place] 1.015 Urine Protein 30 H Urine Glucose [...] Discharge Plan Disposition Disposition: Acute Care Hospital [facility] Discharge Date/Time: 05/25/25 02:28 What to do if you have Problems For any increased pain, shortness of breath, bleeding, nausea or vomiting, chestpain, or any unexpected problems, contact your Primary Care Provider. Call [facility] ([phone]) or report tothe closest Emergency Room. Call 911 if necessary. 05/25/25 0237 Cosigner Signature (if applicable): CC: Dr. Abisai Haley MD ~ Signed [facility]06-27-2025 History and physical note [facility] Medical Records Department [address] [place] [address] H&P Exam - Hospitalist 05/25/25 0037 MR#: [id number] Acct: [id number] Name: JOSEPH RINCON Rep #:[id number] : 1975 50 From: Myra Null MD [...] (>1/5 vodka daily) who presents to the [facility] ED on 05/25/25 with history of [...] 1, Zofran 4 mg IV x 1. [facility] Medical History Pancreatitis Hypokalemia Nausea & vomiting [...] (>1/5 vodka daily) who presents to the [facility] ED on 05/25/25 with history of [...] admission presentation. Charges/Coding Visit Charges Inpatient E&M: 76393 Init Hosp L3 05/25/25 0154 Cosigner Signature (if applicable): CC: Dr. Myra Null MD; Dr. Abisai Haley MD~ Signed [facility]06-08-2025 Discharge summary [facility] Medical Records Department [address] [place] [address] Instructions for Home/Discharge Instructions 05/06/25 1312 MR#: [id number] Acct: [id number] Name: JOSEPH RINCON Rep #:[id number] : 1975 50 From: Mao Becker DO [...] placed): Home, Self Care 05/06/25 1322[facility] DO CC: Dr. Julius Moncada MD; Dr. Abisai Haley MD; Dr. Canelo Myers MD ~ Signed [facility]06-08-2025 [facility] Progress note Author Canelo Myers [facility] Note Date/Time May 04, 2025 9:53a m [facility] Medical Records Department [address] [place] [address] Progress Note - Hospitalist 05/04/25 0742 MR#: [id number] Acct: [id number] Name: JOSEPH RINCON Rep #:[id number] : 1975 50 From: Canelo Myers MD PCP: Dr. Abisai Haley MD Status:ADM IN Location: [place] [address] Reason for Visit Reason for Visit: Diagnoses [...] 04/27/25 14:17 SB (Rec: 04/27/25 14:17 SB [id number]) Nutrition Malnutrition Evidence of Yes Malnutrition Exists [...] % (Auto) 58.1, Lymph % (Auto) 23.0, Rock % (Auto) 15.4 H, Eos % (Auto) [...] ? Requested for PT OT eval and public health social worker to assist with discharge planning ? 05/03/2025; patient remains physical deconditioning. She is agreeable to being discharged with assisted facility for rehab this was discussed with patient's son Tan was in the room Time spent in the patient's overall evaluation,decision-making process, review of diagnostic data, adjustment of management, discussion with other providers, nursing nursing and ancillary staff involved in patient's care documentation, 35minutes Charges/Coding Visit Charges Inpatient E&M: 73195 Subs Hosp L2 05/04/25 0953 <Electronically signed by Canelo Myers MD> Cosigner Signature (if applicable): CC: ~ Signed [facility] Work Phone: 1(549) 798-719906-06-2025 Progress note [facility] Medical Records Department [address] [place] [address] Progress Note - Hospitalist 05/04/25 0742 MR#: [id number] Acct: [id number] Name: JOSEPH RINCON Rep #:[id number] : 1975 50 From: Canelo Myers MD PCP: Dr. Abisai Haley MD Status:ADM IN Location: [place] [address] Reason for Visit Reason for Visit: Diagnoses [...] 04/27/25 14:17 SB (Rec: 04/27/25 14:17 SB [id number]) Nutrition Malnutrition Evidence of Yes Malnutrition Exists [...] % (Auto) 58.1, Lymph % (Auto) 23.0, Rock % (Auto) 15.4 H, Eos % (Auto) [...] ? Requested for PT OT eval and public health social worker to assist with discharge planning ? 05/03/2025; patient remains physical deconditioning. She is agreeable to being discharged with assisted facility for rehab this was discussed with patient's son Tan was in the room Time spent in the patient's overall evaluation,decision-making process, review of diagnostic data, adjustment of management, discussion with other providers, nursing nursing and ancillary staff involved in patient's care documentation, 35minutes Charges/Coding Visit Charges Inpatient E&M: 13435 Subs Hosp L2 05/04/25 0953 Cosigner Signature (if applicable): CC: ~ Signed [facility]06-05-2025 Progress note Author Canelo Myers [facility] Note Date/Time May 03, 2025 11:37 am [facility] Medical Records Department [address] [place] [address] Progress Note - Hospitalist 05/03/25 1136 MR#: [id number] Acct: [id number] Name: JOSEPH RINCON Rep #:[id number] : 1975 50 From: Canelo Myers MD PCP: Dr. Abisai Haley MD Status:ADM IN Location: [place] [address] Reason for Visit Reason for Visit: Diagnoses Acute pancreatitis without necrosis or infection, unspecified (04/26/25) Subjective Subjective Patient has completed phenobarb taper. She however remains physically deconditioned. She is agreeable to being discharged to a assisted facility for rehab Objective Data Objective Data [...] 04/27/25 14:17 SB (Rec: 04/27/25 14:17 SB [id number]) Nutrition Malnutrition Evidence of Yes Malnutrition Exists [...] % (Auto) 61.1, Lymph % (Auto) 19.7, Rock % (Auto) 15.1 H, Eos % (Auto) [...] ? Requested for PT OT eval and public health social worker to assist with discharge planning ? 05/03/2025; patient remains physical deconditioning. She is agreeable to being discharged with assisted facility for rehab this was discussed with patient's son Tan was in the room Charges/Coding Visit Charges Inpatient E&M: 73474 Subs Hosp L2 05/03/25 1137 <Electronically signed by Canelo Myers MD> Cosigner Signature (if applicable): CC: ~ Signed [facility] Work Phone: 1(188) 541-216906-05-2025 Progress note [facility] Medical Records Department [address] [place] [address] Progress Note - Hospitalist 05/03/25 1136 MR#: [id number] Acct: [id number] Name: JOSEPH RINCON Rep #:[id number] : 1975 50 From: Canelo Myers MD PCP: Dr. Abisai Haley MD Status:ADM IN Location: [place] [address] Reason for Visit Reason for Visit: Diagnoses Acute pancreatitis without necrosis or infection, unspecified (04/26/25) Subjective Subjective Patient has completed phenobarb taper. She however remains physically deconditioned. She is agreeable to being discharged to a assisted facility for rehab Objective Data Objective Data [...] 04/27/25 14:17 SB (Rec: 04/27/25 14:17 SB [id number]) Nutrition Malnutrition Evidence of Yes Malnutrition Exists [...] % (Auto) 61.1, Lymph % (Auto) 19.7, Rock % (Auto) 15.1 H, Eos % (Auto) [...] ? Requested for PT OT eval and public health social worker to assist with discharge planning ? 05/03/2025; patient remains physical deconditioning. She is agreeable to being discharged with assisted facility for rehab this was discussed with patient's son Tan was in the room Charges/Coding Visit Charges Inpatient E&M: 78267 Subs Hosp L2 05/03/25 1137 Cosigner Signature (if applicable): CC: ~ Signed [facility]06-04-2025 Progress note Author Canelo Myers [facility] Note Date/Time May 02, 2025 11:07 am [facility] Medical Records Department [address] [place] [address] Progress Note - Hospitalist 05/02/25 0736 MR#: [id number] Acct: [id number] Name: JOSEPH RINCON Rep #:[id number] : 1975 50 From: Canelo Myers MD PCP: Dr. Abisai Haley MD Status:ADM IN Location: [place] [address] Reason for Visit Reason for Visit: Diagnoses [...] 04/27/25 14:17 SB (Rec: 04/27/25 14:17 SB [id number]) Nutrition Malnutrition Evidence of Yes Malnutrition Exists [...] % (Auto) 57.2, Lymph % (Auto) 22.5, Rock % (Auto) 15.8 H, Eos % (Auto) [...] ? Requested for PT OT eval and public health social worker to assist with discharge planning Charges/Coding Visit Charges Inpatient E&M: 15042 Subs Hosp L2 05/02/25 1107 <Electronically signed by Canelo Myers MD> Cosigner Signature (if applicable): CC: ~ Signed [facility] Work Phone: 1(598) 980-809906-04-2025 Progress note [facility] Medical Records Department [address] [place] [address] Progress Note - Hospitalist 05/02/25 0736 MR#: [id number] Acct: [id number] Name: JOSEPH RINCON Rep #:[id number] : 1975 50 From: Canelo Myers MD PCP: Dr. Abisai Haley MD Status:ADM IN Location: [place] [address] Reason for Visit Reason for Visit: Diagnoses [...] 04/27/25 14:17 SB (Rec: 04/27/25 14:17 SB [id number]) Nutrition Malnutrition Evidence of Yes Malnutrition Exists [...] % (Auto) 57.2, Lymph % (Auto) 22.5, Rock % (Auto) 15.8 H, Eos % (Auto) [...] ? Requested for PT OT eval and public health social worker to assist with discharge planning Charges/Coding Visit Charges Inpatient E&M: 23596 Subs Hosp L2 05/02/25 1107 Cosigner Signature (if applicable): CC: ~ Signed [facility]06-03-2025 Progress note Author Canelo Myers [facility] Note Date/Time May 01, 2025 9:31a m [facility] Medical Records Department [address] [place] [address] Progress Note - Hospitalist 05/01/25 0930 MR#: [id number] Acct: [id number] Name: JOSEPH RINCON #:[id number] : 1975 50 From: Canelo Myers MD PCP: Dr. Abisai Haley MD Status:ADM IN Location: [place] [address] Reason for Visit Reason for Visit: Diagnoses [...] 04/27/25 14:17 SB (Rec: 04/27/25 14:17 SB [id number]) Nutrition Malnutrition Evidence of Yes Malnutrition Exists [...] ? Requested for PT OT eval and public health social worker to assist with discharge planning Charges/Coding Visit Charges Inpatient E&M: 40592 Subs Hosp L2 05/01/25 0931 <Electronically signed by Canelo Myers MD> Cosigner Signature (if applicable): CC: ~ Signed [facility] Work Phone: 1(392) 742-928006-03-2025 Progress note [facility] Medical Records Department [facility] [place] [address] Progress Note - Hospitalist 05/01/25 0930 MR#: [id number] Acct: [id number] Name: JOSEPH RINCON Rep #:[id number] : 1975 50 From: Canelo Myers MD PCP: Dr. Abisai Haley MD Status:ADM IN Location: [place] [address] Reason for Visit Reason for Visit: Diagnoses [...] 04/27/25 14:17 SB (Rec: 04/27/25 14:17 SB [id number]) Nutrition Malnutrition Evidence of Yes Malnutrition Exists [...] ? Requested for PT OT eval and public health social worker to assist with discharge planning Charges/Coding Visit Charges Inpatient E&M: 46516 Subs Hosp L2 05/01/25 8282 Cosigner Signature (if applicable): CC: ~ Signed [facility]06-02-2025 Progress note Author Canelo Myers [facility] Note Date/Time April 30, 2025 9:35a m [facility] Medical Records Department [address] [place] [address] Progress Note - Hospitalist 04/30/25813 MR#: [id number] Acct: [id number] Name: JOSEPH RINCON Rep #:[id number] : 1975 50 From: Canelo Myers MD PCP: Dr. Abisai Haley MD Status:ADM IN Location: [place] [address] Reason for Visit Reason for Visit: Diagnoses [...] 04/27/25 14:17 SB (Rec: 04/27/25 14:17 SB [id number]) Nutrition Malnutrition Evidence of Yes Malnutrition Exists [...] % (Auto) 59.8, Lymph % (Auto) 23.4, Rock % (Auto) 13.8 H, Eos % (Auto) [...] weight trends. Charges/Coding Visit Charges Inpatient E&M: 21716 Subs Hosp L2 04/30/25 0962 <Electronically signed by Canelo Myers MD> Cosigner Signature (if applicable): CC: ~ Signed [facility] Work Phone: 1(138) 106-984106-02-2025 Progress note [facility] Medical Records Department [address] [place] [address] Progress Note - Hospitalist 04/30/2514 MR#: [id number] Acct: [id number] Name: JOSEPH RINCON Rep #:[id number] : 1975 50 From: Canelo Myers MD PCP: Dr. Abisai Haley MD Status:ADM IN Location: [place] [address] Reason for Visit Reason for Visit: Diagnoses [...] 04/27/25 14:17 SB (Rec: 04/27/25 14:17 SB [id number]) Nutrition Malnutrition Evidence of Yes Malnutrition Exists [...] % (Auto) 59.8, Lymph % (Auto) 23.4, Rock % (Auto) 13.8 H, Eos % (Auto) [...] weight trends. Charges/Coding Visit Charges Inpatient E&M: 88911 Subs Hosp L2 04/30/25 0925 Cosigner Signature (if applicable): CC: ~ Signed [facility]06-01-2025 Progress note Author Canelo Myers [facility] Note Date/Time April 29, 2025 8:44[facility] Medical Records Department [address] [place] [address] Progress Note - Hospitalist 04/29/25 0733 MR#: [id number] Acct: [id number] Name: JOSEPH RINCON Rep #:[id number] : 1975 50 From: Canelo Myers MD PCP: Dr. Abisai Haley MD Status:ADM IN Location: [place] [address] Reason for Visit Reason for Visit: Diagnoses [...] 04/27/25 14:17 SB (Rec: 04/27/25 14:17 SB [id number]) Nutrition Malnutrition Evidence of Yes Malnutrition Exists [...] 72.9 H, Lymph % (Auto) 14.1 L, Rock % (Auto) 10.9 H, Eos % (Auto) [...] 50 Minutes Charges/Coding Visit Charges Inpatient E&M: 62740 Subs Hosp L3 04/29/25 0844 <Electronically signed by Canelo Myers MD> Cosigner Signature (if applicable): CC: ~ Signed [facility] Work Phone: 1(108) 167-739706-01-2025 Progress note [facility] Medical Records Department [address] [place] [address] Progress Note - Hospitalist 04/29/25 0733 MR#: [id number] Acct: [id number] Name: JOSEPH RINCON Rep #:[id number] : 1975 50 From: Canelo Myers MD PCP: Dr. Abisai Haley MD Status:ADM IN Location: [place] [address] Reason for Visit Reason for Visit: Diagnoses [...] 04/27/25 14:17 SB (Rec: 04/27/25 14:17 SB [id number]) Nutrition Malnutrition Evidence of Yes Malnutrition Exists [...] 72.9 H, Lymph % (Auto) 14.1 L, Rock % (Auto) 10.9 H, Eos % (Auto) [...] 50 Minutes Charges/Coding Visit Charges Inpatient E&M: 50787 Subs Hosp L3 04/29/25 0844 Cosigner Signature (if applicable): CC: ~ Signed [facility]05-31-2025 Progress note Author Canelo Myers [facility] Note Date/Time April 28, 2025 9:47a m [facility] Medical Records Department [address] [place] [address] Progress Note - Hospitalist 04/28/25 0942 MR#: [id number] Acct: [id number] Name: JOSEPH RINCON Rep #:[id number] : 1975 50 From: Canelo Myers MD PCP: Dr. Abisai Haley MD Status:ADM IN Location: [place] [address] Reason for Visit Reason for Visit: Diagnoses [...] 04/27/25 14:17 SB (Rec: 04/27/25 14:17 SB [id number]) Nutrition Malnutrition Evidence of Yes Malnutrition Exists [...] 78.0 H, Lymph % (Auto) 12.5 L, Rock % (Auto) 8.0, Eos % (Auto) 0.8, [...] 52 Minutes Charges/Coding Visit Charges Inpatient E&M: 25061 Subs Hosp L3 04/28/25 0947 <Electronically signed by Canelo Myers MD> Cosigner Signature (if applicable): CC: ~ Signed [facility] Work Phone: 1(444) 988-685805-31-2025 Progress note [facility] Medical Records Department [address] [place] [address] Progress Note - Hospitalist 04/28/25 0942 MR#: [id number] Acct: [id number] Name: JOSEPH RINCON Rep #:[id number] : 1975 50 From: Canelo Myers MD PCP: Dr. Abisai Haley MD Status:ADM IN Location: [place] [address] Reason for Visit Reason for Visit: Diagnoses [...] 04/27/25 14:17 SB (Rec: 04/27/25 14:17 SB [id number]) Nutrition Malnutrition Evidence of Yes Malnutrition Exists [...] 78.0 H, Lymph % (Auto) 12.5 L, Rock % (Auto) 8.0, Eos % (Auto) 0.8, [...] 52 Minutes Charges/Coding Visit Charges Inpatient E&M: 34510 Subs Hosp L3 04/28/25 0947 Cosigner Signature (if applicable): CC: ~ Signed [facility]05-30-2025 Progress note Author Canelo Myers [facility] Note Date/Time April 27, 2025 1:15p m [facility] Medical Records Department [address] [place] [address] Progress Note - Hospitalist 04/27/25 0939 MR#: [id number] Acct: [id number] Name: JOSEPH RINCON Rep #:[id number] : 1975 50 From: Canelo Myers MD PCP: Dr. Abisai Haley MD Status:ADM IN Location: [place] [address] Reason for Visit Reason for Visit: Diagnoses [...] (Auto) 84.6 H, Lymph % (Auto) 7.3L, Rock % (Auto) 7.0, Eos % (Auto) 0.0, [...] Clarity Clear, Urine pH 6.0, Ur Specific [place] 1.010, Urine Protein 30 H, Urine Glucose [...] (Auto) 84.0 H, Lymph % (Auto)7.3 L, Rock % (Auto) 7.9, Eos % (Auto) 0.1, [...] fatty infiltration of the liver. Reading Location: [facility] Physical Exam Narrative GENERAL: cooperative HEENT: Atraumatic; [...] 50 Minutes Charges/Coding Visit Charges Inpatient E&M: 10848 Subs Hosp L3 04/27/25 1315 <Electronically signed by Canelo Myers MD> Cosigner Signature (if applicable): CC: ~ Signed [facility] Work Phone: 1(635) 696-968805-30-2025 Progress note [facility] Medical Records Department [address] [place] [address] Progress Note - Hospitalist 04/27/25 0939 MR#: [id number] Acct: [id number] Name: JOSEPH RINCON Rep #:[id number] : 1975 50 From: Canelo Myers MD PCP: Dr. Abisai Haley MD Status:ADM IN Location: [place] [address] Reason for Visit Reason for Visit: Diagnoses [...] (Auto) 84.6 H, Lymph % (Auto) 7.3L, Rock % (Auto) 7.0, Eos % (Auto) 0.0, [...] Clarity Clear, Urine pH 6.0, Ur Specific [place] 1.010, Urine Protein 30 H, Urine Glucose [...] (Auto) 84.0 H, Lymph % (Auto)7.3 L, Rock % (Auto) 7.9, Eos % (Auto) 0.1, Baso % (Auto) 0.3, Absolute Neuts (auto) 9.6 H, Absolute Lymphs (auto) 0.83, Nucleated RBC % 0, PT 12.9, INR 1.0, [id number], Potassium 3.8, Chloride 96 L, Carbon Dioxide [...] fatty infiltration of the liver. Reading Location: [facility] Physical Exam Narrative GENERAL: cooperative HEENT: Atraumatic; [...] 50 Minutes Charges/Coding Visit Charges Inpatient E&M: 58136 Subs Hosp L3 04/27/25 1315 Cosigner Signature (if applicable): CC: ~ Signed [facility]05-29-2025 History and physical note Author Julius Moncada [facility] Note Date/Time April 26, 2025 8:28p m [facility] Medical Records Department [address] [place] [address] H&P Exam - Hospitalist 04/26/25 1718 MR#: [id number] Acct: [id number] Name: JOSEPH RINCON Rep #:[id number] : 1975 50 From: Julius Moncada MD PCP: Dr. Abisai Haley MD Status:ADM [facility] HPI - General General Date [...] (Auto) 84.6 H, Lymph % (Auto) 7.3L, Rock % (Auto) 7.0, Eos % (Auto) 0.0, [...] Clarity Clear, Urine pH 6.0, Ur Specific [place] 1.010, Urine Protein 30 H, Urine Glucose [...] fatty infiltration of the liver. Reading Location: [facility] Assessment & Plan Assessment/Plan (1) Pancreatitis: PLAN: [...] - No concerns regarding exocrine insufficiency - [place] pain control with Tylenol and opioids - [...] Moncada MD; Dr. Abisai Haley MD~ Signed [facility] Work Phone: 1([phone]) 836-191905-29-2025 History and physical note [facility] Medical Records Department [address] [place] [address] H&P Exam - Hospitalist 04/26/25 1718 MR#: [id number] Acct: [id number] Name: JOSEPH RINCON Rep #:[id number] : 1975 50 From: Julius Moncada MD PCP: Dr. Abisai Haley MD Status:ADM IN Location: [place] [address] HPI - General General Date of Admission: [...] total protein 7.7, albumin 4.5 [facility] Medical History Strain of left foot Plantar [...] (Auto) 84.6 H, Lymph % (Auto) 7.3L, Rock % (Auto) 7.0, Eos % (Auto) 0.0, [...] Clarity Clear, Urine pH 6.0, Ur Specific [place] 1.010, Urine Protein 30 H, Urine Glucose [...] fatty infiltration of the liver. Reading Location: [facility] Assessment & Plan Assessment/Plan (1) Pancreatitis: PLAN: [...] - No concerns regarding exocrine insufficiency - [place] pain control with Tylenol and opioids - [...] Moncada MD; Dr. Abisai Haley MD~ Signed [facility]05-29-2025 Evaluation note* Diagnosis Onset Date Resolution Status Admit Date Hypokalemia acute April 26 5:13pm Intractable abdominal pain acute April 26, 2025 5:13pm Nausea & vomiting acute March 5:13pm Pancreatitis acute April 26 5:13pm [facility] Work Phone: 1(474) 847-175805-29-2025 Evaluation note* Diagnosis Onset Date Resolution Status Admit Date Hypokalemia inactive April 26 5:13pm Intractable abdominal pain inactive April 26, 2025 5:13pm Nausea & vomiting inactive March 5:13pm Pancreatitis inactive April 26 5:13pm Admitted to alcohol detoxification center acute May 25, 2025 12:33am [facility] Work Phone: 1(995) 348-942205-29-2025 Evaluation note* Diagnosis Onset Date Resolution Status [...] diabetes mellitus acute July 17, 2025 12:56pm [facility] Work Phone: 1(276) 467-116905-29-2025 Evaluation note* Diagnosis Onset Date Resolution Status [...] pancreatitis chroni c August 12, 2025 12:43pm [facility] Work Phone: 1(891) 140-948905-29-2025 Evaluation note* Diagnosis Onset Date Resolution Status [...] pancreatitis chroni c August 12, 2025 12:43pm [facility] Work Phone: 1(347) 506-672305-29-2025 Discharge summary Author Humphrey [facility] Note Date/Time April 26, 2025 4:45p m [facility] Medical Records Department [address] [place] [address] Emergency Department Summary 04/26/25 MR#: [id number] Acct: [id number] Name: JOSEPH RINCON Rep #:[id number] : 1975 50 From: Humphrey Garcia DO [...] normal colored stool. [facility] Medical History Strain of left foot Plantar [...] following commands knew that she was at [facility] the year is 2024 Skin: Warm, [...] 84.6 H Lymph % (Auto) 7.3 L Rock % (Auto) 7.0 Eos % (Auto) 0.0 [...] Clarity Clear Urine pH 6.0 Ur Specific [place] 1.010 Urine Protein 30 H Urine Glucose [...] fatty infiltration of the liver. Reading Location: [facility] Discharge Plan Triage Chief Complaint: Abd Pain [...] MD [Primary Care Provider] - Print Language: [place]ican Disposition Disposition: Acute Care Hospital [facility] What to do if you have Problems For any increased pain, shortness of breath, bleeding, nausea or vomiting, chestpain, or any unexpected problems, contact your Primary Care Provider. Call [facility] ([phone]) or report to the closest Emergency Room. Call 911 if necessary. 04/26/25 1645 <Electronically signed by Humphrey Garcia DO> Cosigner Signature (if applicable): CC: Dr. Abisai Haley MD ~ Signed [facility] Work Phone: 1(897) 810-620205-29-2025 Discharge summary [facility] Medical Records Department [address] [place] [address] Emergency Department Summary 04/26/25 MR#: [id number] Acct: [id number] Name: JOSEPH RINCON Rep #:[id number] : 1975 50 From: Humphrey Garcia DO [...] normal colored stool. Patient denies any recentcontacts [facility] Medical History Strain of left foot Plantar [...] following commands knew that she was at [facility] the year is 2024 Skin: Warm, [...] 84.6 H Lymph % (Auto) 7.3 L Rock % (Auto) 7.0 Eos % (Auto) 0.0 [...] Clarity Clear Urine pH 6.0 Ur Specific [place] 1.010 Urine Protein 30 H Urine Glucose [...] fatty infiltration of the liver. Reading Location: [facility] Discharge Plan Triage Chief Complaint: Abd Pain [...] MD [Primary Care Provider] - Print Language: [place]ican Disposition Disposition: Acute Care Hospital [facility] What to do if you have Problems For any increased pain, shortness of breath, bleeding, nausea or vomiting, chestpain, or any unexpected problems, contact your Primary Care Provider. Call [facility] ([phone]) or report tothe closest Emergency Room. Call 911 if necessary. 04/26/25 1645 Cosigner Signature (if applicable): CC: Dr. Abisai Haley MD ~ Signed [facility]05-29-2025 Radiology Diagnostic study note [facility] Imaging Services [address] [place], [place] [address] Abdomen/Pelvis W IV Cont ONLY MR#: [id number] Acct: [id number] Name: JOSEPH RINCON Rep #: [id number] : 1975 F 50 From: Jhonny oRger MD PCP: Dr. Abisai Haley MD Status: REG ER Study:Abdomen/Pelvis W IV Cont ONLY Date of E xam: 04/26/25 Exam# [id number] Ordering Dr: Becky Garcia DO PROCEDURE: ABDOMEN/PELVIS [...] fatty infiltration of the liver. Reading Location: [facility] CC: Dr. Abisai Haley MD; Dr. Humphrey Garcia DO ~ Web Application Dev Specialist: Signed [facility]05-15-2025 Hospital Discharge instructions Additional Instructions Plenty of fluids and rest. Sleep on the main floor tonight. Due to fall risk. No driving for the next 24 hours. Use your Protonix at home for stomach discomfort due to the alcohol. Follow-up with your doctor if not improving or return if worse.[facility] Work Phone: 1(151) [phone] Radiology Diagnostic study note [facility] Imaging Services [address] [place], [place] [address] Chest PA and Lateral MR#: [id number] Acct: [id number] Name: JOSEPH RINCON Rep #: [id number] : 1975 F 50 From: Jacque Martinez MD PCP: Dr. Abisai Haley MD Status: REG ER Study:Chest PA and Lateral Date of Exam: 04/11/25 Exam# [id number] Ordering Dr: Sheron Colon MD PROCEDURE: CHEST PA AND LATERAL 04/11/2025 REASON FOR EXAM: CHEST PAIN TECHNIQUE: Frontal and lateral views of the chest. COMPARISON: 04/04/2025 FINDINGS: Hardware: None Heart: The heart size is normal. Mediastinum: The mediastinal contour is unremarkable. Lungs: The lungs are clear. Bones: The bones are unremarkable. RAD/Chest PA and Lateral IMPRESSION: NO ACUTE FINDINGS. [facility] CC: Dr. Abisai Haley MD; Dr. Francisco Colon MD ~ Web Application Dev Specialist: Signed [facility]05-07-2025 Discharge summary [facility] Medical Records Department [address] [place] [address] Emergency Department Summary 04/04/25 MR#: [id number] Acct: [id number] Name: JOSEPH RINCON Rep #:[id number] : 1975 50 From: Imani Ruelas PCP: [...] had intermittent hot flashes and then chills/sweats. [facility] Medical History Strain of left foot Plantar [...] 77.0 H Lymph % (Auto) 14.0 L Rock % (Auto) 7.8 Eos % (Auto) 0.2 [...] process is seen. Negative examination. Reading Location: [facility] Abdomen/Pelvis CT 04/04/25 12:02 IMPRESSION: 1. [...] 4. Additional description as above. Reading Location: [facility] Rhythm Strip Rhythm Strip: Sinus [...] Staff - Active Staff] - Print Language: [place] Rican Disposition Disposition: Home, Self Care What to do if you have Problems For any increased pain, shortness of breath, bleeding, nausea or vomiting, chestpain, or any unexpected problems, contact your Primary Care Provider. Call [facility] ([phone]) or report tothe closest Emergency Room. Call 911 if necessary. 04/04/25 1607 Cosigner Signature (if applicable): CC: Dr. Abisai Haley MD ~ Signed [facility]05-07-2025 Discharge summary Author Imani Knight [facility] Note Date/Time April 04, 2025 4:07pm [facility] Medical Records Department [address] [facility] [place] [address] Emergency Department Summary 04/04/25 MR#: [id number] Acct: [id number] Name: JOSEPH RINCON Rep #:[id number] : 1975 50 From: Imani Ruelas PCP: [...] had intermittent hot flashes and then chills/sweats. [facility] Medical History Strain of left foot Plantar [...] 77.0 H Lymph % (Auto) 14.0 L Rock % (Auto) 7.8 Eos % (Auto) 0.2 [...] seen. Negative examination. Reading Location: [facility] Abdomen/Pelvis CT 04/04/25 12:02 IMPRESSION: 1. [...] 4. Additional description as above. Reading Location: [id number] Rhythm Strip Rhythm Strip: Sinus Tach Rate: [...] Staff - Active Staff] - Print Language: [place] Rican Disposition Disposition: Home, Self Care What to do if you have Problems For any increased pain, shortness of breath, bleeding, nausea or vomiting, chestpain, or any unexpected problems, contact your Primary Care Provider. Call [facility] ([phone]) or report to the closest Emergency Room. Call 911 if necessary. 04/04/25 1607 <Electronically signed by Imani Knight DO> Cosigner Signature (if applicable): CC: Dr. Abisai Haley MD ~ Signed [facility] Work Phone: 1(398) 893-283905-07-2025 Radiology Diagnostic study note [facility] Imaging Services [address] [place] [address] Abdomen/Pelvis W IV Cont ONLY MR#: [id number] Acct: [id number] Name: JOSEPH RINCON Rep #: [id number] : 1975 F 50 From: Odalis Giraldo MD PCP: Dr. Abisai Haley MD Status: REG ER Study:Abdomen/Pelvis W IV Cont ONLY Date of E xam: 04/04/25 Exam# [id number] Ordering Dr: Selene Knight DO PROCEDURE: ABDOMEN/PELVIS [...] lobe airspace disease is new from prior, [id number] x 24 mm (series 2, image 11). [...] 4. Additional description as above. Reading Location: [facility] CC: Dr. Abisai Haley MD; Dr. Imani Knight DO ~ Web Application Dev Specialist: Signed [facility]05-07-2025 Radiology Diagnostic study note [facility] Imaging Services [address] [place], [place] [address] Chest 1 View (Portable) MR#: [id number] Acct: [id number] Name: JOSEPH RINCON Rep #: [id number] : 1975 F 50 From: Guido Valles MD PCP: Dr. Abisai Haley MD Status: REG ER Study:Chest 1 View (Portable) Date of Exam: 04/04/25 Exam# [id number] Ordering Dr: Selene Knight DO PROCEDURE: CHEST 1 VIEW (PORTABLE) 04/04/2025 REASON FOR EXAM: CHEST PAIN TECHNIQUE: Frontal view of the chest. COMPARISON: Chest x-ray 11/12/2024 RAD/Chest 1 View (Portable) IMPRESSION: Lungs appear clear throughout. No pleural effusion or pneumothorax is seen. The cardiomediastinal silhouette is stable, without evidence of cardiomegaly. No acute osseous process is seen. Negative examination. Reading Location: [place] [address] CC: Dr. Aibsai Haley MD; Dr. Imani Knight DO ~ Web Application Dev Specialist: Signed [facility]05-25-2024 NoteHNO ID: [id number] Author: ARTEHA SCHOFIELD APRN.AUTO CLAIM REPRESENTATIVE Service: ? Author Type: Nurse Practitioner Type: [...] drugs Objective Physical Exam (more content not included)...[facility]05-25-2024 Instructions * Patient Instructions* Aretha Schofield APRN.AUTO CLAIM REPRESENTATIVE - 04/22/2024 2:02 PM EDT ASSESSMENT/PLAN: 1. [...] Discussed expected course of illness Aretha Schofield APRN.AUTO CLAIM REPRESENTATIVE [facility] of Present illness Narrative* Aretha Schofield APRN.AUTO CLAIM REPRESENTATIVE - 04/22/2024 1:56 PM EDT Subjective Sinus [...] Discussed expected course of illness Aretha Schofield APRN.AUTO CLAIM REPRESENTATIVE [facility] Discharge summary Author Caprice Jerry [facility] July 29, 2023 5:41pm Note Date/Time July 29, 2023 2: 37pm [facility] Medical Records Department [address] [place] [address] Emergency Department Summary 07/29/23 MR#: [id number] Acct: [id number] Name: JOSEPH RINCON Rep #:[id number] : 1975 48 From: Caprice Jerry MD [...] time that did not show any disease. [facility] Medical History Acute lumbar myofascial strain Alcohol [...] % (Auto) 63.7 Lymph % (Auto) 25.4 Rock % (Auto) 8.5 Eos % (Auto) 1.6 [...] your Primary Care Provider. Call [facility] ([phone]) or report to the closest Emergency Room. Call 911 if necessary. 07/29/23 1741 <Electronically signed by Caprice Jerry MD> Cosigner Signature (if applicable): CC: Milana Garcia DO ~ Signed [facility] Work Phone: [phone]) 780-551906-27-[address] Jerry [facility] May 25, 2023 2:53am Note Date/Time May 24, 2023 11:2 0pm [facility] Medical Records Department [address] [place] [address] Emergency Department Summary 05/24/23 MR#: [id number] Acct: [id number] Name: JOSEPH RINCON Rep #:[id number] : 1975 48 From: Cparice Jerry MD PCP: Milana Garcia DO Status:REG [...] blood pressure. She just received a 14-day personal care service provider in the mail that she will wear. [...] but there has never been seizures documented. [facility] Medical History Acute lumbar myofascial strain Alcohol [...] 40.3 L Lymph % (Auto) 45.0 H Rock % (Auto) 11.4 H Eos % (Auto) [...] Color Urine Clarity Urine pH Ur Specific [place] Urine Protein Urine Glucose (UA) Urine Ketones [...] (Auto) Neut % (Auto) Lymph % (Auto) Rock % (Auto) Eos % (Auto) Baso % [...] Clarity Clear Urine pH 6.5 Ur Specific [place] 1.005 Urine Protein Negative Urine Glucose (UA) [...] Patient's had no significant arrhythmias noted on personal care service provider throughout her ED stay. Portable chest x-ray [...] been worked up. She just got her personal care service provider in the mail tonight to put on. [...] your Primary Care Provider. Call [facility] ([phone]) or report to the closest Emergency Room. Call 911 if necessary. 05/25/23 0253 <Electronically signed by Caprice Jerry MD> Cosigner Signature (if applicable): CC: Milana Garcia DO ~ Signed [facility] Work Phone: [phone] 140-842906-07-[address] Dyer [facility] May 05, 2023 12:31am Note Date/Time May 04, 2023 10:36 pm [facility] Medical Records Department [address] [place] [address] Emergency Department Summary 05/04/23 MR#: [id number] Acct: [id number] Name: JOSEPH RINCON Rep #:[id number] : 1975 48 From: John Dyer DO [...] a cardiac cath 11/19/2022 which was normal. [facility] Medical History Acute lumbar myofascial strain Alcohol [...] % (Auto) 51.3 Lymph % (Auto) 35.6 Rock % (Auto) 9.4 Eos % (Auto) 2.7 [...] EDT Reading Location ID and State: [facility] / ID Tel , Service support , Brain CT [...] your Primary Care Provider. Call [facility] ([phone]) or report to the closest Emergency Room. Call 911 if necessary. 05/05/23 0031 <Electronically signed by John Dyer DO> Cosigner Signature (if applicable): CC: Milana Garcia DO ~ Signed [facility] Work Phone: 1(671) 656-164705-13-[address] Johnson [facility] April 10, 2023 3:15pm Note Date/Time April 10, 2023 3:15p [facility] Medical Records Department [address] [place] [address] Progress Note - Hospitalist 04/10/23 1511 MR#: [id number] Acct: [id number] Name: JOSEPH RINCON Rep #:[id number] : 1975 48 From: Radha Johnson DO PCP: Milana Garcia DO Status:ADM I N Location: [place] [address] Hospitalist Note Is a 48-year-old white female [...] some issues for her at baseline. 04/10/23 5133 <Electronically signed by Radha Johnson DO> Cosigner Signature (if applicable): CC: ~ Signed [facility] Work Phone: [phone]) 749-748605-13-[address] Jacobs [facility] April 10, 2023 7:13am Note Date/Time April 09, 2023 11:06 pm [facility] Medical Records Department [address] [place] [address] Emergency Department Summary 04/09/23 MR#: [id number] Acct: [id number] Name: JOSEPH RINCON Rep #:[id number] : 1975 48 From: David Ruelas PCP: Milana Garcia DO Status:ADM I N Location: [place] [address] HPI History of Present Illness Chief Complaint: [...] TAD Risk Factors: Negative for Hypertension PFSH [facility] Medical History Acute lumbar myofascial strain Anxiety [...] 85.1 H Lymph % (Auto) 11.3 L Rock % (Auto) 1.6 Eos % (Auto) 0.4 [...] Color Urine Clarity Urine pH Ur Specific [place] Urine Protein Urine Glucose (UA) Urine Ketones [...] (Auto) Neut % (Auto) Lymph % (Auto) Rock % (Auto) Eos % (Auto) Baso % [...] Clarity Clear Urine pH 6.5 Ur Specific [place] 1.010 Urine Protein Negative Urine Glucose (UA) [...] (Auto) Neut % (Auto) Lymph % (Auto) Rock % (Auto) Eos % (Auto) Baso % [...] Color Urine Clarity Urine pH Ur Specific [place] Urine Protein Urine Glucose (UA) Urine Ketones [...] sinus rhythm with a rate of 86. HI interval, QRS interval, and QTc intervals were all normal. Cordova was normal. There are no acute ST [...] (42), Including time spent:, Discussing w/Patient &/or Family/Local Az Truck Driver, Discussing w/Consultants, Arranging Admission or Transfer and Performing Direct Patient Care at Bedside Discharge Plan Dx/Rx/DC Orders Clinical Impression: High anion gap metabolic acidosis, Hypotension, Lactic acidosis Disposition Disposition: [facility] Discharge Date/Time: 04/10/23 03:28 What to do if you have Problems For any increased pain, shortness of breath, bleeding, nausea or vomiting, chestpain, or any unexpected problems, contact your Primary Care Provider. Call [facility] ([phone]) or report to the closest Emergency Room. Call 911 if necessary. 04/10/23712 <Electronically signed by David Jacobs DO> Cosigner Signature (if applicable): CC: Milana Garcia DO ~ Signed [facility] Work Phone: [phone]) 500-406705-13-2023 History and physical note Author Dr. Kiran [facility] April 10, 2023 5:36am Note Date/Time April 10, 2023 1:28a [facility] Medical Records Department [address] [place] [address] H&P Exam - Hospitalist 04/10/23 0128 MR#: [id number] Acct: [id number] Name: JOSEPH RINCON Rep #:[id number] : 1975 48 From: Young Kiran MD PCP: Milana Garcia DO Status:ADM I N Location: [place] [id number] HPI - General General Date of [...] patient had multiple loose stools. [facility] Medical History Acute lumbar myofascial strain Anxiety [...] cranial nerves II through XII grossly intact. [place]- Hallpike maneuver to the right was positive [...] 85.1 H, Lymph % (Auto) 11.3 L, Rock % (Auto) 1.6, Eos % (Auto) 0.4, [...] Lovenox ordered. Charges/Coding Visit Charges Inpatient E&M: 16083 Init Hosp L3 04/10/23 0536 <Electronically signed by Young Kiran MD> Cosigner Signature (if applicable): CC: Dr. Young Kiran MD; Milana Garcia DO~ Signed [facility] Work Phone: [phone]) 236-418704-24-[address] Gaviria [facility] March 22, 2023 10:43pm Note Date/Time March 22, 2023 7:0 6pm [facility] Medical Records Department [address] [place] [address] Emergency Department Summary 03/22/23 MR#: [id number] Acct: [id number] Name: JOSEPH RINCON Rep #:[id number] : 1975 47 From: Lauri Gaviria MD [...] Prior similar symptoms: No Recent Illness/Hospitalization: [facility] Medical History Acute lumbar myofascial strain Anxiety [...] % (Auto) 64.4 Lymph % (Auto) 22.7 Rock % (Auto) 9.9 Eos % (Auto) 2.0 [...] Color Urine Clarity Urine pH Ur Specific [place] Urine Protein Urine Glucose (UA) Urine Ketones Urine Occult Blood Urine Nitrite Urine Bilirubin Urine Urobilinogen Ur Leukocyte Esterase Urine RBC Urine WBC Ur Squamous Epith Cells Amorphous Sediment Urine Bacteria Urine Mucus 03/22/23 20:20 WBC RBC Hgb Hct MCV MCH MCHC RDW Std Deviation RDW Coeff of Braxton Plt Count MPV Immature Gran % (Auto) Neut % (Auto) Lymph % (Auto) Rock % (Auto) Eos % (Auto) Baso % [...] Sl. Cloudy Urine pH 6.5 Ur Specific [place] 1.005 Urine Protein Negative Urine Glucose (UA) [...] (Rate is 68 and EKG is normal. HI interval is 130 ms. Cures duration 86 ms. QT duration 408 ms. Cordova is normal.) Treatment and Re-Evaluation :: Patient [...] your Primary Care Provider. Call [facility] ([phone]) or report to the closest Emergency Room. Call 911 if necessary. 03/22/232242 <Electronically signed by Lauri Gaviria MD> Cosigner Signature (if applicable): CC: Milana Garcia DO ~ Signed [facility] Work Phone: [phone]) 622-763404-24-2023 Hospital Discharge instructions Additional Instructions Call your doctor in the morning to have repeat blood work in 3 to 5 days. Let them know that your creatinine is elevated.[facility] Work Phone: [phone]) 372-689410-09-2022 Hospital Discharge instructions Additional Instructions Plenty of fluids and rest. No alcohol for the next 48 hours. No driving for the next 24 hours. Follow-up with your primary care physician. They can get an EEG to further evaluate you for possible seizures. Your labs and CAT scan tonight were unremarkable other than your alcohol level that was 237.[facility] Work Phone: [phone]) [phone] Instructions* Patient Instructions* Samantha Deleon APRN.[facility] - 07/21/2022 7:38 PM EDT [place]: [...] bladder or bowel control. [facility] History of Present illness Narrative* Sabrina [...] 21, 2022 7:16 PM [facility] History of Present illness Narrative* Samantha Deleon, COUNTERSINKER.AUTO CLAIM REPRESENTATIVE - 07/21/2022 7:10 PM EDT This note was created using Mobilisaferiter. 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 The history is provided by the patient. No school speech language pathologist was used. Musculoskeletal Problem This is a [...] Flexeril Follow up with PCP Samantha Deleon APRN.AUTO CLAIM REPRESENTATIVE [facility] History of Past illness Narrative* Problem [...] of this encounter (statuses as of 07/21/2022) [facility] Sho Leyva [facility] Note Date/Time May 28, 2025 2:19 pm [facility] Medical Records Department [address] [place] [address] Counseling Note - Pharmacy 05/28/25 1332 MR#: [id number] Acct: [id number] Name: JOSEPH RINCON Rep #:[id number] : 1975 50 From: Sho Leyva PCP: Dr. Abisai Haley MD Status:ADM IN Location: [address] Med Reconciliation Pharmacy Service has performed [...] Signature (if applicable): Date CC: ~ Signed [facility] Work Phone: Discharge summary Author Dr. Johnson [facility] April 11, 2023 9:49am Note Date/Time April 11, 2023 9:39a [facility] Medical Records Department [address] [place] [address] Discharge Summary 04/11/23 0936 MR#: [id number] Acct: [id number] Name: JOSEPH RINCON Rep #:[id number] : 1975 48 From: Radha Johnson DO PCP: Milana Garcia DO Status:ADM I N Location: [place] [address] Providers Date of Admission: 04/10/23 Date of [...] % (Auto) 67.1, Lymph % (Auto) 23.8, Rock % (Auto) 7.8, Eos % (Auto) 0.7, [...] 11:21 EDT Reading Location ID and State: [facility] / [place] Tel , Service support , D/C Instructions [...] Self Care Charges/Coding Visit Charges Inpatient E&M: 98274 Disch Hosp >30min 04/11/23 0949 <Electronically signed by Radha Johnson DO> Cosigner Signature (if applicable): CC: Dr. Radha Johnson DO; Milana Garcia DO~ Signed [facility] Work Phone: Discharge summary Author Mao Becker [facility] Note Date/Time May 06, 2025 1:22p taisha [facility] Medical Records Department [address] [place] [address] Instructions for Home/Discharge Instructions 05/06/25 1312 MR#: [id number] Acct: [id number] Name: JOSEPH RINCON Rep #:[id number] : 1975 50 From: Mao Becker DO [...] MD; Dr. Canelo Myers MD ~ Signed [facility] Work Phone: Discharge summary [facility] Note Date/Time May 28, 2025 1:16 pm [facility] Medical Records Department [address] [place] [address] Discharge Summary 05/28/25 1313 MR#: [id number] Acct: [id number] Name: JOSEPH RINCON Rep #:[id number] : 1975 50 From: Mao Becker DO PCP: Dr. Abisai Haley MD Status:ADM [place] [facility] [id number] Providers Date of Admission: 05/25/25 Date of Discharge: 05/28/25 Primary Care Physician: Abisai Haley MD Reason For Visit: ETOH DETOXIFICATION, WITHDRAWL Diagnosis Discharge Diagnosis (1) Admitted to alcohol detoxification center: Status: Acute Plan 1. Acute alcohol withdrawal-patient will remain on her present medications, addiction public health social worker will talk with the patient #2 hypomagnesemia-magnesium [...] was seen in the emergency room at [facility] desiring services for alcohol detox. She had been admitted previously only several weeks ago for pancreatitis and alcohol withdrawal and had already gone through the program at that time. Her toxicology screen was positive for barbiturates and benzodiazepines, but alcohol level was 312. Patient was admitted to [facility], orders were entered using the alcohol detox order set and she was seen by addiction public health social worker. Patient had minimal withdrawal symptoms to hospitalization [...] Self Care Charges/Coding Visit Charges Inpatient E&M: 22603 Disch Hosp >30min 05/28/25 1316 <Electronically signed by Mao Becker DO> Cosigner Signature (if applicable): CC: Dr. Abisai Haley MD; Dr. Mao Becker DO~ Signed [facility] Work Phone: Discharge summary Author Canelo Myers [facility] Note Date/Time July 20, 2025 2: 48pm [facility] Medical Records Department [address] [facility] [place] [address] Discharge Summary 07/20/25 1442 MR#: [id number] Acct: [id number] Name: JOSEPH RINCON Rep #:[id number] : 1975 50 From: Canelo Myers MD PCP: Dr. Abisai Haley MD Status:ADM [place] [facility] [id number] Providers Date of Admission: 07/17/25 Date of [...] % (Auto) 66.7, Lymph % (Auto) 19.5, Rock % (Auto) 11.8 H, Eos % (Auto) 1.6, Baso % (Auto) 0.2, AbsoluteNeuts (auto) 2.8, Absolute Lymphs (auto) 0.83, Nucleated RBC % 0, Sodium 140, Potassium 3.6, Chloride 103, Carbon Dioxide 27.0, Anion Gap 10, BUN 4, Creatinine 0.40 L, Estim Creat Clear Calc 148.53, Est GFR (MDRD) Non-Af 122, BUN/Creatinine Ratio 10.1, Glucose 107 H, Calcium 7.6, Total Bilirubin 0.86, QHK560 H, ALT 114 H, Alkaline Phosphatase 134 [...] Self Care Charges/Coding Visit Charges Inpatient E&M: 01134 Disch Hosp >30min 07/20/25 1448 <Electronically signed by Canelo Myers MD> Cosigner Signature (if applicable): CC: Dr. Abisai Haley MD; Dr. Canelo Myers MD~ Signed [facility] Work Phone: Discharge summary Author Wellington Rader [facility] Note Date/Time August 12, 2025 1:00pm [facility] Medical Records Department [address] [place] [address] Emergency Department Summary 08/12/25 MR#: [id number] Acct: [id number] Name: JIMBOLUKEJOSEPH L Rep #:[id number] : 1975 50 From: Wellington Rader MD [...] fevers or chills. No known sick contacts. [facility] Medical History Admitted to alcohol detoxification center [...] Pancreatitis without phlegmon or pseudocyst. Reading Location: [id number] Management Discussion w/another healthcare provider: Hospitalist Critical Care Time Critical Care Time: Yes Critical care time (excluding procedures): 30-74 minutes (41 min), Including time spent:, Discussing w/Patient &/or Family/Local Az Truck Driver, Discussing w/Consultants, Arranging Admission or Transfer and Performing Direct Patient Care at Bedside Discharge Plan Dx/Rx/DC Orders Clinical Impression: Acute on chronic pancreatitis, LUI (acute kidney injury), Hyperglycemia due to type 2 diabetes mellitus, Ketosis Disposition Disposition: Acute Care Hospital [facility] What to do if you have Problems For any increased pain, shortness of breath, bleeding, nausea or vomiting, chestpain, or any unexpected problems, contact your Primary Care Provider. Call [facility] ([phone]) or report to the closest Emergency Room. Call 911 if necessary. 08/12/25 1300 <Electronically signed by Wellington Rader MD> Cosigner Signature (if applicable): CC: Dr. Abisai Haley MD ~ Signed [facility] Work Phone: Evaluation noteNo assessment information available [facility] Work Phone: Evaluation note* Diagnosis Hip pain, acute, left- Primary [facility] Diagnosis Onset Date Resolution Status Bilateral acute otitis media acute [facility] Work Phone: Evaluation note* Diagnosis Onset Date Resolution Status Acute lumbar myofascial strain acute Strain of left hip acute Acute bronchitis acute ACS (acute coronary syndrome) acute Hypertensive urgency acute Hypertriglyceridemia acute Non-ST elevated myocardial infarction acute Hypertension chronic Type 2 diabetes mellitus [facility] Work Phone: Evaluation note* Diagnosis Onset Date Resolution Status Acute lumbar myofascial strain acute Strain of left hip acute Acute bronchitis acute ACS (acute coronary syndrome) acute Hypertensive urgency acute Hypertriglyceridemia acute Non-ST elevated myocardial infarction acute HTN (hypertension) chronic Type 2 diabetes mellitus [facility] Work Phone: Evaluation note* Diagnosis Onset Date Resolution Status Acute bronchitis acute [facility] Work Phone: Evaluation note* Diagnosis Onset Date Resolution Status Acute bronchitis acute High anion gap metabolic acidosis acute Hypotension acute Lactic acidosis acute Vertigo acute Type 2 diabetes mellitus [facility] Work Phone: Evaluation note* Diagnosis Onset Date Resolution Status Acute bronchitis acute High anion gap metabolic acidosis resolved Hypotension resolved Lactic acidosis resolved Vertigo resolved [facility] Work Phone: Evaluation note* Diagnosis Onset Date Resolution Status Acute bronchitis acute High anion gap metabolic acidosis resolved Hypotension resolved Lactic acidosis resolved Vertigo resolved Hypertriglyceridemia acute Palpitations acute Syncope and collapse acute HTN (hypertension) chronic Tobacco use disorder [facility] Work Phone: Evaluation note* Diagnosis Onset Date Resolution Status High anion gap metabolic acidosis resolved Hypotension resolved Lactic acidosis resolved Vertigo resolved Hypertriglyceridemia acute Palpitations acute Syncope and collapse acute HTN (hypertension) chronic Tobacco use disorder chronic Acute sinusitis acute [facility] Work Phone: Evaluation note* Diagnosis Onset Date Resolution Status Hypertriglyceridemia acute Palpitations acute Syncope and collapse acute HTN (hypertension) chronic Tobacco use disorder chronic Acute sinusitis acute [facility] Work Phone: Evaluation note* Diagnosis Onset Date Resolution Status Hypertriglyceridemia acute Palpitations acute Syncope and collapse acute HTN (hypertension) chronic Tobacco use disorder chronic Acute sinusitis acute Hypertriglyceridemia acute Palpitations acute HTN (hypertension) chronic Tobacco use disorder chronic [facility] Work Phone: Evaluation note* Diagnosis Onset Date Resolution Status Acute sinusitis acute Hypertriglyceridemia acute Palpitations acute HTN (hypertension) chronic Tobacco use disorder chronic Contact with or exposure to other viral diseases acute URI (upper respiratory infection) acute [facility] Work Phone: Evaluation note* Diagnosis Onset Date Resolution Status Plantar fasciitis of left foot acute Strain of left foot acute [facility] Work Phone: Evaluation note* Diagnosis Sinus congestion- Primary Other diseases of nasal cavity and sinuses Wheezing Nausea Nausea alone [facility] Diagnosis Insomnia- Primary Insomnia, unspecified [...] pain, acute, left [facility] Myra Null [facility] Note Date/Time May 25, 2025 1:54 am [facility] Medical Records Department [address] [place] [address] H&P Exam - Hospitalist 05/25/25 0037 MR#: [id number] Acct: [id number] Name: JOSEPH RINCON Rep #:[id number] : 1975 50 From: Myra Null MD [...] (>1/5 vodka daily) who presents to the [facility] ED on 05/25/25 with history of [...] 1, Zofran 4 mg IV x 1. [facility] Medical History Pancreatitis Hypokalemia Nausea & vomiting [...] (>1/5 vodka daily) who presents to the [facility] ED on 05/25/25 with history of [...] admission presentation. Charges/Coding Visit Charges Inpatient E&M: 47533 Init Hosp L3 05/25/25 0154 <Electronically signed by Myra Null MD> Cosigner Signature (if applicable): CC: Dr. Myra Null MD; Dr. Abisai Haley MD~ Signed [facility] Work Phone: Hospital Discharge instructions Additional Instructions Please follow-up with your PCP and pain management. Return for worsening of symptoms.[facility] Work Phone: Reason for referral (narrative)* Diagnostic Procedure Only (Urgent) - Pending Review Specialty Diagnoses / Procedures Referred By Contac t Referred To Contact XR IMAGING Diagnoses Hip pain, acute, left Procedures XR HIP GENERAL 3V PELV/AP/LAT LEFT RADEX HIP UNILATERAL WITH PELVIS 2-3 VIEWS Samantha Deleon APRN.CNP [address] [place] [address] Xr Imaging Referral ID Status Reason Start Date Expiration Date Visits Requested Visits Authorized [id number] Pending Review Auto-Generat ed Referral 07/21/2022 08/20/2023 1 1 [facility] for referral (narrative)* Diagnostic Procedure Only (Urgent) - Closed Specialty Diagnoses / Procedures Referred By Contac t Referred To Contact XR IMAGING Diagnoses Hip pain, acute, left Procedures XR HIP GENERAL 3V PELV/AP/LAT LEFT RADEX HIP UNILATERAL WITH PELVIS 2-3 VIEWS Samantha Deleon APRN.AUTO CLAIM REPRESENTATIVE [address] [place] [address] [place] [address] Referral ID Status Reason Start Date Expiration Date V isits Requested Visits Authorized [id number] Closed Auto-Generate d Referral 07/21/2022 08/20/2023 1 1 [facility] for referral (narrative)No reason for referral information availableWOhio [facility] Work Phone: Reason for visit Narrative* Diagnostic Procedure Only (Urgent) - Closed Specialty Diagnoses / Procedures Referred By Contac t Referred To Contact XR IMAGING Diagnoses Hip pain, acute, left Procedures XR HIP GENERAL 3V PELV/AP/LAT LEFT RADEX HIP UNILATERAL WITH PELVIS 2-3 VIEWS Samantha Deleon APRN.CNP [address] [place] [address] [place] [address] Referral ID Status Reason Start Date Expiration Date V isits Requested Visits Authorized [id number] Closed Auto-Generate d Referral 07/21/2022 08/20/2023 1 1 [facility] Summary Purpose Family History No Family [...] No February 22, 2022 12:30pm Power of Pig Farmer No February 22 12:30pm Advance Directive Response Recorded Date/ Time Advance Directives No February 23 8:55am Living Will No September 05 9:14pm Power of Pig Farmer No September 05 9:14pm Advance Directive Response Recorded Date/ Time Advance Directives No February 23 7:55am Living Will No November 18 1:54pm Power of Pig Farmer No November 18, 2022 1:54pm Advance Directive Response Recorded Date/ Time Advance Directives No February 23 7:55am Living Will No January 21 12:06pm Power of Pig Farmer No January 21, 2023 12:06pm Advance Directive Response Recorded Date/ Time Advance Directives No February 23 8:55am Living Will No March 22, 2023 6:38pm Power of Pig Farmer No March 22 6:38pm Advance Directive Response Recorded Date/ Time Advance Directives No February 23 8:55am Living Will No April 09, 2023 1 0:50pm Power of Pig Farmer No April 09, 2023 10:50pm Advance Directive Response Recorded Date/ Time Advance Directives No February 23 8:55am Living Will No April 10, 2023 3 :53am Power of Pig Farmer No April 10, 2023 3:53am Advance Directive Response Recorded Date/ Time Advance Directives No February 23 8:55am Living Will No May 04, 2023 9 :16pm Power of Pig Farmer No May 04, 2023 9:16pm Advance Directive Response Recorded Date/ Time Advance Directives No February 23 8:55am Living Will No May 24, 2023 9:36pm Power of Pig Farmer No May 24 9:36pm Advance Directive Response Recorded Date/ Time Advance Directives No February 23 8:55am Living Will No July 29 2:27pm Power of Pig Farmer No July 29 2:27pm Advance Directive Response Recorded Date/ Time Advance Directives No February 23 8:55am Living Will No August 23, 2023 12:07pm Power of Pig Farmer No July 12:07pm Advance Directive Response Recorded Date/ Time Advance Directives No February 23 7:55am Living Will No October 10 4:19pm Power of Pig Farmer No October 10, 2023 4:19pm Advance Directive Response Recorded Date/ Time Advance Directives No February 23 8:55am Living Will No January 24 5:38pm Power of Pig Farmer No January 24, 2024 5:38pm Advance Directive Response Recorded Date/ Time Do you have a Healthcare Power of Pig Farmer? No April 04, 2025 11:50am Advance Directives No July 2:01pm Advance Directive Response Recorded Date/ Time Do you have a Healthcare Power of Pig Farmer? No April 11, 2025 10:12pm Do you have a Healthcare Power of Pig Farmer? No April 04, 2025 11:50am Advance Directives No July 2:01pm Advance Directive Response Recorded Date/ Time Do you have a Healthcare Power of Pig Farmer? No April 11, 2025 10:12pm Do you have a Healthcare Power of Pig Farmer? No April 04, 2025 11:50am Do you have a Healthcare Power of Pig Farmer? No April 26, 2025 1:50pm Advance Directives No July 2:01pm Advance Directive Response Recorded Date/ Time Do you have a Healthcare Power of Pig Farmer? No April 11, 2025 10:12pm Do you have a Healthcare Power of Pig Farmer? No April 04, 2025 11:50am Do you have a Healthcare Power of Pig Farmer? No April 26, 2025 6:15pm Advance Directives No July 2:01pm Advance Directive Response Recorded Date/ Time Do you have a Healthcare Power of Pig Farmer? No April 11, 2025 10:12pm Do you have a Healthcare Power of Pig Farmer? No April 04, 2025 11:50am Do you have a Healthcare Power of Pig Farmer? No April 26, 2025 6:15pm Do you have a Healthcare Power of Pig Farmer? No May 24, 2025 11:48pm Advance Directives No July 2:01pm Advance Directive Response Recorded Date/ Time Do you have a Healthcare Power of Pig Farmer? No April 11, 2025 10:12pm Do you have a Healthcare Power of Pig Farmer? No April 04, 2025 11:50am Do you have a Healthcare Power of Pig Farmer? No April 26, 2025 6:15pm Do you have a Healthcare Power of Pig Farmer? No May 25, 2025 2:53am Advance Directives No July 2:01pm Advance Directive Response Recorded Date/ Time Do you have a Healthcare Power of Pig Farmer? No April 11, 2025 10:12pm Do you have a Healthcare Power of Pig Farmer? No July 17, 2025 10:29am Do you have a Healthcare Power of Pig Farmer? No April 04, 2025 11:50am Do you have a Healthcare Power of Pig Farmer? No April 26, 2025 6:15pm Do you have a Healthcare Power of Pig Farmer? No May 25, 2025 2:53am Advance Directives No July 2:01pm Advance Directive Response Recorded Date/ Time Do you have a Healthcare Power of Pig Farmer? No April 11, 2025 10:12pm Do you have a Healthcare Power of Pig Farmer? No July 17, 2025 1:34pm Do you have a Healthcare Power of Pig Farmer? No April 04, 2025 11:50am Do you have a Healthcare Power of Pig Farmer? No April 26, 2025 6:15pm Do you have a Healthcare Power of Pig Farmer? No May 25, 2025 2:53am Advance Directives No July 2:01pm Advance Directive Response Recorded Date/ Time Do you have a Healthcare Power of Pig Farmer? No July 17, 2025 1:34pm Do you have a Healthcare Power of Pig Farmer? No August 12, 2025 8:21am Do you have a Healthcare Power of Pig Farmer? No April 26, 2025 6:15pm Do you have a Healthcare Power of Pig Farmer? No May 25, 2025 2:53am Advance Directives No July 2:01pm Advance Directive Response Recorded Date/ Time Do you have a Healthcare Power of Pig Farmer? No July 17, 2025 1:34pm Do you have a Healthcare Power of Pig Farmer? No August 12, 2025 1:20pm Do you have a Healthcare Power of Pig Farmer? No April 26, 2025 6:15pm Do you have a Healthcare Power of Pig Farmer? No May 25, 2025 2:53am Advance Directives [...] 2025 5:13p m [facility], 2025 12:33am Chief [...] 2025 5:13p m Admitted to alcohol detoxification the [facility] May 25, 2025 12:33am Abdominal pain [...] 2025 5:13p m Admitted to alcohol detoxification the [facility] May 25, 2025 12:33am History of [...] section and content) DATE CREATED AUTHOR 06/16/2021 [facility] DATE CREATED AUTHOR AUTHOR'S ORGANIZ ATION 04/24/2024 [facility] DATE CREATED AUTHOR AUTHOR'S ORGANIZ ATION 08/23/2025 [facility] Goals (unrecognized section and content) Goals may [...] or prosecute any alcohol or drug abuse patient.[facility] the event this information is protected by the Federal Confidentiality of Alcohol and Drug Abuse Patient Records regulations: The Federal rules restrict any use of the information to criminally investigate or prosecute any alcohol or drug abuse patient.[facility] Hospital[facility] the event this information is protected by the Federal Confidentiality of Alcohol and Drug Abuse Patient Records regulations: The Federal rules restrict any use of the information to criminally investigate or prosecute any alcohol or drug abuse patient.[facility] Reason for Visit (unrecogniz ed section and content) Reason Comments left hip pain X 3 days-cannot reca ll an injury Reason Comments Sinus Problem Nasal congestion, dr garland slight sore throat, nausea, cough, wheezing x 1 day Care Teams (unrecognized sec tion and content) Design Architect Relationship Specialty Start Date End Date Ihsan [...] Care Provider, Referring Provider Active Jim Manriquez EDITOR MAP, EDITOR MAP-C Attending Provider Active Team Status: Inactive Member [...] DO Primary Care Provider Active Jim Manriquez EDITOR MAP, EDITOR MAP-C Attending Provider, Referring P ty Active Team [...] Attending Provider, Referring Provider Active Jim Manriquez EDITOR MAP, EDITOR MAP-C Other Provider Active Team Status: Inactive Member [...] Dr. Jose Taylor MD Attending Provider Active Design Architect Relationship Specialty Start Date End Date LaurenIhsan gonzalez DO PCP - General Family Medicine 10/22/20 Design Architect Relationship Specialty Start Date End Date LaurenIhsan [...] Active St art: April 30, 2025 Dr. uJlius Moncada MD Other Provider [...] Active Start: May 03, 2025 Dr. Humphrey Garica DO Emergency Provider Active Start: May 03, [...] Status: Active Member Role Status Dates Abisai Haely MD Primary Care Provider Active St art: [...] Active S tart: May 05, 2025 Dr. Caneol Myers MD Other Provider Active Star t: [...] Provider Active Start: July 19, 2025 Dr. aCnelo Myers MD Other Provider [...] Active St art: May 02, 2025 Dr. Julisu Moncada MD Other Provider Active St art: [...] Provider Active Start: May 04, 2025 Dr. Cnaelo Myers MD Other Provider [...] Activ e Start: May 25, 2025 Dr. yMra Null MD Attending Provider Active Start: May [...] BE BASED ON THE PRIMARY CLINICAL RECORDS. [employer] provides no warranty or guarantee of the accuracy or completeness of information in this document.
[2025-11-18] MEDS: Lactated Ringers 1,000 ML 150 ML IV ×3 (10:35→23:26)
[2025-11-18] MEDS: HYDROmorphone 0.5 MG/0.5 ML SYRINGE IV ×3 (10:41→20:18)
[2025-11-18] MEDS: Metoprolol(XL)Succ 25 MG Tablet PO (12:31)
[2025-11-18] MEDS: Cholecalciferol (VIT D3) 25 MCG TABLET (1,000 UNITS) 50 MCG PO (12:32)
[2025-11-18] MEDS: buPROPion (XL) 150 MG TABLET.XL PO (12:33)
[2025-11-18] MEDS: Budesonide Respules 0.5 MG/2 ML AMPUL.NEB. INHALATION ×2 (13:20→19:30)
[2025-11-18] MEDS: Albuterol 2.5 MG/3 ML VIAL.NEB. INHALATION ×2 (13:20→19:30)
[2025-11-18] MEDS: Potassium Chloride Oral Tablet 20 MEQ 40 MEQ PO (14:07)
[2025-11-18] MEDS: 0.9% Saline Lock 10 ML Syringe IV (20:18)
[2025-11-18] MEDS: MELATONIN 3 MG TABLET PO (20:34)
[2025-11-19] VITALS (10 sets, daily range): BP systolic 116–167; BP diastolic 81–100; PULSE 94–119; RESP 16–20; TEMP 37–39.3; O2SAT 92–99
[2025-11-19] MEDS: Lidocaine 2% Viscous15 ML UDC 15 ML PO (02:19)
[2025-11-19] MEDS: Mag /Aluminum/Simeth WCH UDC 30 ML ORAL.SUSP PO (02:19)
[2025-11-19] MEDS: HYDROmorphone 0.5 MG/0.5 ML SYRINGE IV ×3 (03:04→19:58)
[2025-11-19] MEDS: Lactated Ringers 1,000 ML 150 ML IV (05:19)
[2025-11-19] MEDS: Budesonide Respules 0.5 MG/2 ML AMPUL.NEB. INHALATION ×2 (06:44→19:35)
[2025-11-19] MEDS: Albuterol 2.5 MG/3 ML VIAL.NEB. INHALATION ×3 (06:44→19:35)
[2025-11-19 07:38] LABS: Hematocrit 32.5 % (37-47); Hemoglobin 11.1 g/dL (12.0-15.0); Mean Corp Hgb Conc 34.2 g/dL (32-36); Mean Corpuscular Volume 102.5 fL (81-99); Mean Platelet Vol. 10.0 fl (6.2-12.0); Platelet Count 177 K/mm3 (150-450); RBC Distribution Width CV 14.4 % (11.6-14.6); RBC Distribution Width SD 53.8 fl (35.1-43.9); Red Blood Count 3.17 M/mm3 (4.2-5.4); White Blood Count 10.4 K/mm3 (4.4-11.0)
[2025-11-19 08:11] LABS: Anion Gap 11 (5-15); BUN 3 mg/dL (4-19); BUN/Creat Ratio 8.3 RATIO (10-20); Calcium,Total 7.3 mg/dL (7.6-11.0); Carbon Dioxide 30.0 mmol/L (21.0-32.0); Chloride 94 mmol/L (98-108); Estimated Creatinine Clearance 191.65 ml/min (50-250); Glucose 103 mg/dL (70-99); Potassium 3.1 mmol/L (3.3-5.1)
[2025-11-19] MEDS: Potassium Chloride Oral Tablet 20 MEQ 40 MEQ PO ×2 (09:17→09:18)
[2025-11-19] MEDS: Cholecalciferol (VIT D3) 25 MCG TABLET (1,000 UNITS) 50 MCG PO (09:19)
[2025-11-19] MEDS: Metoprolol(XL)Succ 25 MG Tablet PO (09:19)
[2025-11-19] MEDS: buPROPion (XL) 150 MG TABLET.XL PO (09:20)
--- NOTE | 2025-11-19 09:49 | PN.HOSP_ITS ---
Reason for Visit Chief Complaint: Abdominal pain and nausea with vomiting Subjective Subjective Saw patient at bedside this morning. Patient was sitting back in bed and was comfortable appearing, but she was reporting continued moderate abdominal pain. She was receiving oxycodone and IV Dilaudid consistently overnight for this. She has been tolerating a clear liquid diet well and was looking forward to trialing a regular diet today. No other new concerns this morning. Objective Data Objective Data Vital Signs: Vital Signs Temp Pulse Resp BP Pulse Ox O2 Del Method 99.1 F 116 H 16 167/89 H 92 Room Air 11/19/25 07:32 11/19/25 09:19 11/19/25 07:32 11/19/25 07:32 11/19/25 07:32 11/19/25 07:32 Oxygen Delivery Method Room Air Weight: 54.8 kg Body Mass Index (BMI) 20.6 Intake & Output: Intake and Output for Last 24 Hours 11/17/25 11/18/25 11/19/25 23:59 23:59 23:59 Intake Total 4523 / 4523 1122.5 / 1122.5 Balance 4523 / 4523 1122.5 / 1122.5 Lab / Micro Data 11/19/25 07:16 11/19/25 07:16 Labs: Laboratory Results - last 24 hr 11/18/25 12:26: POC Glucose 147 H 11/18/25 15:26: POC Glucose 250 H 11/18/25 21:51: POC Glucose 158 H 11/19/25 06:39: POC Glucose 117 H 11/19/25 07:16: WBC 10.4, RBC 3.17 L, Hgb 11.1 L, Hct 32.5 L, MCV 102.5 H, MCH 35.0 H, MCHC 34.2, RDW Std Deviation 53.8 H, RDW Coeff of Braxton 14.4, Plt Count 177, MPV 10.0, Sodium 134, Potassium 3.1 L, Chloride 94 L, Carbon Dioxide 30.0, Anion Gap 11, BUN 3 L, Creatinine 0.31 L, Estim Creat Clear Calc 191.65, Est GFR (MDRD) Non-Af 129, BUN/Creatinine Ratio 8.3 L, Glucose 103 H, Calcium 7.3 L Patient's Goals Of Care - F/U Goals Reviewed Goals of care reviewed with patient: NA-No significant change in clinical Status /major procedure scheduled Physical Exam Const alert, oriented x3, no apparent distress and average body habitus Constitutional Narrative: Middle-age female, more comfortable appearing today, sitting back in bed and conversing normally, in no acute distress. General Appearance: cooperative HEENT normocephalic, head/scalp atraumatic, hearing grossly normal bilaterally, nasal mucous membranes and turbinates normal and moist oral mucous membranes Eyes PERRL, EOMs intact bilaterally and conjunctivae normal Neck full ROM Chest inspection of chest normal Resp normal respiratory effort, normal air movement, no use of accessory muscles and clear to auscultation bilaterally Cardio no murmurs and peripheral pulses 2+ throughout Cardio Narrative: Tachycardic, regular rhythm. GI GI Narrative: Mild to moderate tenderness to palpation in epigastric area noted. Abdomen otherwise soft and nondistended. Stable. Back/Spine normal ROM Extremity normal to inspection, full ROM and no pedal edema Skin no rashes or lesions noted Psych mental status grossly normal Assessment & Plan Assessment/Plan (1) Acute on chronic pancreatitis: PLAN: Plan Patient is a 50-year-old female who presented to [facility] ED on 11/18/2025 with abdominal pain and nausea with vomiting. 1. Recurrent acute on chronic pancreatitis ? CT abdomen pelvis on admit with interval increase in peripancreatic fluid compared to CT from 11/16, as well as ongoing acute on chronic pancreatitis findings; notably no fluid collections or necrosis noted. Lipase 753. Last alcoholic drink 3 weeks ago as below. Given 2 L of IV fluids in the ED. Treated with LR 150 cc/h through morning of 11/19; patient tolerating clear liquid diet well so escalated to regular cardiac diet on 11/19, maintenance fluids discontinued. Continue Tylenol, oxycodone and IV Dilaudid as needed for pain control. De-escalated IV Dilaudid to only 3 times daily as needed on 11/19 with plan to wean patient off by 11/20 or 11/21. Can consider GI consult as needed. 2. Hypokalemia, hypomagnesemia ? Potassium 2.9, magnesium 0.9 on admit. Given 40 mEq of potassium and 4 g of magnesium on admit. Has history of chronic hypokalemia. Improved on hospital day 2. Continue to monitor daily labs. Continue home potassium supplement. 3. Alcohol abuse ? Last drink 3 weeks ago per patient. No evidence of withdrawal on admit. Hold off on CIWA protocol at this time. Encourage continued alcohol cessation on discharge. Chronic medical conditions: ? History of CAD with stenting, hypertension, hyperlipidemia: Hypertensive to the 180s to 190s systolic and mild sinus tachycardia to the 100s on admit, suspected largely due to pancreatitis as above. Continue home aspirin, statin, amlodipine, and lisinopril. BPs improved with adequate pain control. ? Type 2 diabetes mellitus: Most recent A1c 5.2% on 08/13. Has previously been only mildly elevated to 6.7. Given this, will hold off on [id number] glucose checks or sliding scale insulin at this time. Will hold home metformin and Jardiance as well. ? COPD: Stable on room air, not in acute exacerbation. Continue home inhalers. ? Anxiety/depression: Stable. Continue home bupropion, fluoxetine and BuSpar. ? GERD: Continue home PPI. ? Seasonal allergies: Continue home Singulair and cetirizine. DVT prophylaxis: Lovenox CODE STATUS: Full code, verified Expected disposition: Home, TBD Total clinical time spent by myself addressing the patient's medical issues, reviewing all the data, and collaborating with patient's care team: 39 minutes. Charges/Coding Visit Charges Inpatient E&M: 68553 Subs Hosp L2
[2025-11-19] MEDS: FLU VACCINE 2025-26(6MOS UP) 45 MCG/0.5 ML SYRINGE IM (11:17)
[2025-11-19] MEDS: Senna Tablet 2 TABLET PO (11:18)
--- NOTE | 2025-11-19 11:20 | CASEMGMT ---
Social Work SW met w/pt regarding her self pay status. Pt states reapplied for Medicaid w/[employer](from [employer]) today. She states was over income before. She states she has not returned to work as she is busy with Ramesh, and also working through having lost her in May. She states she does not think it would be good for her emotionally to work right now. She states has been living off of her savings. She declined resources, states she has them from a prior hospitalization. SW asked pt about her mental health, pt states she is taking medication for depression. Pt denies being suicidal at this time. SW offered counseling resources, she states has information for bereavement counseling through hospice and would follow up there first. Pt declined any further resources. SW asked pt about history of drinking. Pt states she is doing better with this. She states [facility] recommended she do the 3 day intensive program, however her doctor recommended she decrease her alcohol intake slowly. She states her doctor gave her scripts for Ativan and a medication that helps to decrease craving, and she plans to take these meds and detox on her own. She states however her meds are missing, she is not certain if someone took them. She states her 's kids came in and took a lot of things from her home. She does not think they would have taken her meds but she is not sure. Her PCP is Dr. Haley and she pays privately to see him, can follow up w/him. Pt knows how to get in touch w/[facility] [employer] if needed so resources not needed here either. SW also asked pt about LW/POA, pt has the blank documents that she was given on a prior hospital stay, and has the SW number to call to complete. Pt declined wanting to complete these at this time. Pt plans to return home at d/c, lives w/her son who is 27. Pt declined all resources offered. SW remains available should any resources be needed. ZANA Walker
--- NOTE | 2025-11-19 13:12 | CASEMGMT ---
ROSA BROWN Assessment: Face to Face with pt for initial transition planning/care coordination assessment. RN STEPHANIE introduced self and role at [facility], pt voices understanding and consents to assessment. Pt is A&O x4 and answers all questions appropriately at this time. Pt sitting in bed in no distress. Care providers, pharmacy, and demographics verified/updated. Strata: 3 Admitting Dx: Acute pancreatitis PCP: Sudha Specialists: ERLIN Preferred Pharmacy: [facility] Insurance: Self Pay, Pt states someone already came and spoke with her about applying for [facility] and for information about financial resources. Prescription Benefit: yes LNOK: MotherSarah Living Arrangements: Pt lives with oldest child in a 2 story home with 3 steps to enter. ADLs: I with ADLs and IADLs. Transportation: Pt drives self and denies concerns with transportation. DME: CPAP, but doesn't use it; Glucometer and supplies. HHC/SNF: Denies Hx of. 6 clicks = 24. Pt states no concerns with going home at time of dc. Pt states no further concerns/needs. CM to follow. Advised pt to ask CM if any further question/concerns/needs arise, voices understanding. Pt Goal: Home Plan: Home, follow for safe DC. Angie LEE CM
[2025-11-19] MEDS: 0.9% Saline Lock 10 ML Syringe IV (19:59)
[2025-11-20] VITALS (9 sets, daily range): BP systolic 105–138; BP diastolic 72–85; PULSE 98–114; RESP 14–20; TEMP 36.7–37.7; O2SAT 96–97
[2025-11-20 06:18] LABS: Hematocrit 32.2 % (37-47); Hemoglobin 10.3 g/dL (12.0-15.0); Mean Corp Hgb Conc 32.0 g/dL (32-36); Mean Corpuscular Volume 108.1 fL (81-99); Mean Platelet Vol. 10.4 fl (6.2-12.0); Platelet Count 170 K/mm3 (150-450); RBC Distribution Width CV 14.9 % (11.6-14.6); RBC Distribution Width SD 58.9 fl (35.1-43.9); Red Blood Count 2.98 M/mm3 (4.2-5.4); White Blood Count 13.4 K/mm3 (4.4-11.0)
[2025-11-20 07:02] LABS: Anion Gap 11 (7-18); BUN 6 mg/dL (4-19); BUN/Creat Ratio 14.5 RATIO (10-20); Calcium,Total 7.6 mg/dL (7.6-11.0); Carbon Dioxide 28.1 mmol/L (20.0-29.0); Chloride 98 mmol/L (96-106); Estimated Creatinine Clearance 138.16 ml/min (50-250); Glucose 91 mg/dL (70-99); Potassium 4.8 mmol/L (3.5-5.1)
--- NOTE | 2025-11-20 07:13 | PCM.PN.HOSP ---
Reason for Visit Chief Complaint: Abdominal pain and nausea with vomiting Subjective Subjective Patient states overall she is feeling better. We discussed that she had fever overnight. She is complaining of lower abdominal pain in the suprapubic area and she is uncomfortable there with palpation. She denies any dysuria. Still complains of some epigastric pain but states it was not worsened by eating. Objective Data Objective Data Vital Signs: Vital Signs Temp Pulse Resp BP Pulse Ox O2 Del Method 99.2 F H 105 H 18 127/74 H 97 Room Air 11/20/25 06:10 11/20/25 06:10 11/20/25 06:10 11/20/25 06:10 11/20/25 06:10 11/20/25 06:10 Oxygen Delivery Method Room Air Weight: 54.8 kg Body Mass Index (BMI) 20.6 Intake & Output: Intake and Output for Last 24 Hours 11/18/25 11/19/25 11/20/25 23:59 23:59 23:59 Intake Total 4523 / 4523 2570.0 / 2570.0 Balance 4523 / 4523 2570.0 / 2570.0 Lab / Micro Data 11/20/25 05:35 11/20/25 05:35 Labs: Laboratory Results - last 24 hr 11/19/25 07:16: WBC 10.4, RBC 3.17 L, Hgb 11.1 L, Hct 32.5 L, MCV 102.5 H, MCH 35.0 H, MCHC 34.2, RDW Std Deviation 53.8 H, RDW Coeff of Braxton 14.4, Plt Count 177, MPV 10.0, Sodium 134, Potassium 3.1 L, Chloride 94 L, Carbon Dioxide 30.0, Anion Gap 11, BUN 3 L, Creatinine 0.31 L, Estim Creat Clear Calc 191.65, Est GFR (MDRD) Non-Af 129, BUN/Creatinine Ratio 8.3 L, Glucose 103 H, Calcium 7.3 L 11/19/25 11:22: POC Glucose 139 H 11/19/25 16:03: POC Glucose 177 H 11/19/25 22:44: POC Glucose 133 H 11/20/25 05:35: WBC 13.4 H, RBC 2.98 L, Hgb 10.3 L, Hct 32.2 L, MCV 108.1 H D, MCH 34.6 H, MCHC 32.0 D, RDW Std Deviation 58.9 H, RDW Coeff of Braxton 14.9 H, Plt Count 170, MPV 10.4, Sodium 137, Potassium 4.8, Chloride 98, Carbon Dioxide 28.1, Anion Gap 11, BUN 6, Creatinine 0.43 L, Estim Creat Clear Calc 138.16, Est GFR (MDRD) Non-Af 120, BUN/Creatinine Ratio 14.5, Glucose 91, Calcium 7.6 11/20/25 06:17: POC Glucose 103 Physical Exam Const alert, oriented x3, no apparent distress and average body habitus Constitutional Narrative: Middle-aged, white female, sitting up in bed, currently appears comfortable, does not look toxic, appears a bit older than stated age HEENT head/scalp atraumatic and moist oral mucous membranes Head and Scalp: normocephalic Resp normal respiratory effort, no retractions, no use of accessory muscles and clear to auscultation bilaterally Auscultation: Negative for crackles, rhonchi or wheezes Cardio regular rate, regular rhythm, S1 normal heart sound, S2 normal heart sound, no murmurs, no rub, no gallops and no clicks GI normal to inspection, nondistended, normoactive bowel sounds and soft to palpation GI Narrative: Mild generalized tenderness most pacifically in the lower abdominal quadrants and suprapubic region, mild epigastric and right upper quadrant tenderness Extremity no clubbing, cyanosis or edema Extremity Narrative: 2+ pedal and radial pulses Neuro moves all extremities and no focal motor deficits Speech: speech normal Psych affect normal Psych Narrative: Eye contact is good and patient interacts appropriately Assessment & Plan Assessment/Plan (1) Acute recurrent pancreatitis: (2) Fever: (3) Leukocytosis: PLAN: Plan Recurrent Acute on Chronic Pancreatitis - Doing well overall - tolerating diet well with minimal pain - off dilaudid - cont. APAP and Oxycodone Fever/Suprapubic pain/Leukocytosis - Tmax 102.7 yesterday-->etiology is unclear - UA with culture - start ceftriaxone - trend and recheck CBC in am Hypokalemia/Hypomagnesemia - Resolved H/O EtOH abuse -Last drink 3 weeks ago - no signs of withdrawal CAD/Essential HTN/Hyperlipidemia - previous CHERY - cont asa - cont statin - cont amlodipine - cont lisinopril DM-2 - last A1c 5.2% - restart orals at d/c GERD - cont PPI Seasonal Allergies - cont home regimen Anxiety/Depression - cont bupropion, fluoxetine, and Buspar DVT prophylaxis - cont Lovenox Code status - Full Code Charges/Coding Visit Charges Inpatient E&M: 90754 Subs Hosp L2
[2025-11-20] MEDS: Albuterol 2.5 MG/3 ML VIAL.NEB. INHALATION ×3 (07:17→19:20)
[2025-11-20] MEDS: Budesonide Respules 0.5 MG/2 ML AMPUL.NEB. INHALATION ×2 (07:18→19:20)
[2025-11-20 08:52] LABS: Mucous, Urine 0 SEEN /hpf (<or=2+); Red Blood Cells-Urine 0 SEEN /hpf (0-5)
[2025-11-20 08:58] LABS: Color, Urine Yellow (Yellow); Glucose, Dipstick Normal (Normal); Ketone-Dipstick 50 mg/dl (Negative); Leukocyte Esterase-Dipstick 25 /ul (Negative); Nitrite-Dipstick Negative (Negative); Occult Blood-Urine Negative /ul (Negative); Protein-Dipstick 15 mg/dl (Negative); Specific Gravity, Urine 1.010 (1.002-1.030); Urine Bilirubin Dipstick Negative (Negative)
[2025-11-20 09:03] LABS: Squamous Epithelial Cells - UA 10-25 SEEN /hpf (5-10)
[2025-11-20] MEDS: Cholecalciferol (VIT D3) 25 MCG TABLET (1,000 UNITS) 50 MCG PO (09:33)
[2025-11-20] MEDS: buPROPion (XL) 150 MG TABLET.XL PO (09:35)
[2025-11-20] MEDS: Metoprolol(XL)Succ 25 MG Tablet PO (09:35)
[2025-11-20] MEDS: 0.9% Saline Lock 10 ML Syringe IV ×2 (10:47→16:21)
--- NOTE | 2025-11-20 20:03 | CPS ---
rinsed mouth x 1
[2025-11-21 01:33] VITALS: BP 128/82; PULSE 102; RESP 19; TEMP 37.2; O2SAT 95
[2025-11-21 06:11] VITALS: BP 124/84; PULSE 85; RESP 16; TEMP 37; O2SAT 98
[2025-11-21 06:13] LABS: Hematocrit 30.8 % (37-47); Hemoglobin 10.0 g/dL (12.0-15.0); Mean Corp Hgb Conc 32.5 g/dL (32-36); Mean Corpuscular Volume 106.9 fL (81-99); Mean Platelet Vol. 10.5 fl (6.2-12.0); Platelet Count 197 K/mm3 (150-450); RBC Distribution Width CV 14.6 % (11.6-14.6); RBC Distribution Width SD 57.2 fl (35.1-43.9); Red Blood Count 2.88 M/mm3 (4.2-5.4); White Blood Count 10.2 K/mm3 (4.4-11.0)
[2025-11-21 06:40] LABS: AST(SGOT) 27 U/L (<=31); Alanine Aminotransfer ALT/SGPT 14 U/L (<=34); Albumin, Serum 2.9 g/dL (3.5-5.0); Alkaline Phosphatase 132 U/L (35-104); Anion Gap 10 (7-18); BUN 10 mg/dL (4-19); BUN/Creat Ratio 22.1 RATIO (10-20); Calcium,Total 7.9 mg/dL (7.6-11.0); Carbon Dioxide 27.5 mmol/L (20.0-29.0); Chloride 97 mmol/L (96-106); Estimated Creatinine Clearance 132.02 ml/min (50-250); Globulin 3.4 g/dL (2.2-4.2); Glucose 93 mg/dL (70-99); Magnesium 1.7 mg/dL (1.5-2.2); Potassium 4.3 mmol/L (3.5-5.1)
[2025-11-21] MEDS: Albuterol 2.5 MG/3 ML VIAL.NEB. INHALATION (06:44)
[2025-11-21] MEDS: Budesonide Respules 0.5 MG/2 ML AMPUL.NEB. INHALATION (06:44)
[2025-11-21 06:45] VITALS: PULSE 85; RESP 14; O2SAT 96
[2025-11-21] MEDS: Sodium Phosphate/Na Biphos 21 MMOL in 0.9% Normal Saline (250mL Bag) 250 ML 84 MMOL IV (08:04)
[2025-11-21] MEDS: 0.9% Saline Lock 10 ML Syringe IV (08:04)
[2025-11-21 10:01] VITALS: PULSE 85
[2025-11-21] MEDS: Metoprolol(XL)Succ 25 MG Tablet PO (10:01)
[2025-11-21] MEDS: Cholecalciferol (VIT D3) 25 MCG TABLET (1,000 UNITS) 50 MCG PO (10:01)
[2025-11-21] MEDS: buPROPion (XL) 150 MG TABLET.XL PO (10:01)
--- NOTE | 2025-11-21 15:33 | DS.PCM_ITS ---
Providers Date of Admission: 11/18/25 Date of Discharge: 11/21/25 Primary Care Physician: Abisai Haley MD Reason For Visit: ACUTE PANCREATITIS Diagnosis Discharge Diagnosis (1) Acute recurrent pancreatitis: Status: Acute Code(s): K85.90 - Acute pancreatitis without necrosis or infection, unspecified (2) Fever: Status: Acute Code(s): R50.9 - Fever, unspecified (3) Leukocytosis: Status: Acute Code(s): D72.829 - Elevated white blood cell count, unspecified Medications at Discharge Home Medications metformin 500 mg tablet 500 ea PO BID DIABETES 10/31/22 aspirin 81 mg chewable tablet 81 mg PO DAILY@0800 heart health #30 tabs 11/19/22 bupropion HCl 150 mg 24 hr tablet, extended release 150 mg PO DAILY mental health 01/21/23 montelukast 10 mg tablet (Singulair) 10 mg PO DAILY allergies 04/09/23 cholecalciferol (vitamin D3) 50 mcg (2,000 unit) capsule 50 mcg PO DAILY vitamin 08/25/23 empagliflozin 25 mg tablet (Jardiance) 25 mg PO DAILY diabetes 11/12/24 metoprolol succinate 25 mg tablet,extended release 24 hr 25 mg PO DAILY blood pressure 11/12/24 amlodipine 5 mg tablet 5 mg PO DAILY blood pressure 04/04/25 buspirone 5 mg tablet 5 mg PO TID PRN anxiety 04/04/25 hydroxyzine HCl 10 mg tablet 10 mg PO Q8H PRN anxiety 04/04/25 levocetirizine 5 mg tablet 5 mg PO DAILY allergies 04/11/25 lisinopril 40 mg tablet 40 mg PO DAILY blood pressure 04/11/25 budesonide-formoterol HFA 160 mcg-4.5 mcg/actuation aerosol inhaler 2 puff inhalation BID SOB 04/26/25 atorvastatin 40 mg tablet 40 mg PO QHS cholesterol 07/17/25 fluoxetine 40 mg capsule 40 mg PO DAILY mental health 07/17/25 lorazepam 1 mg tablet 1 mg PO BID PRN anxiety 08/12/25 pantoprazole 40 mg tablet,delayed release 40 mg PO DAILY 30 days #30 tabs 08/15/25 hydrocodone-acetaminophen 5-325mg 5mg-325mg 1 tab PO Q6H PRN PRN Pain 3 days #12 TABLETS 11/03/25 potassium chloride 20 mEq tablet,extended release(part/cryst) 20 meq PO TID #20 tabs 11/16/25 cephalexin 500 mg capsule 500 mg PO BID #8 caps 11/21/25 oxycodone 5 mg tablet 5 mg PO Q4H PRN PRN Pain Score 4-10 3 days #12 tabs 11/21/25 sennosides 8.6 mg tablet (senna) 8.6 mg PO BID #14 tabs 11/21/25 Hospital Course Operations None Procedures - (CT abdomen and pelvis) Summary of Care Provided Minutes Spent on Discharge: 38 Hospital Course: Ms. Leary is a 50-year-old female who has a history of chronic pancreatitis and presented to the emergency department at [facility] on 11/18/2025 with a chief complaint of abdominal pain, nausea, and vomiting. She has a history of alcohol abuse and has resultant chronic alcoholic pancreatitis. She was initially seen in the emergency department on 1218 for these concerns and a CT was performed at that time which showed ongoing inflammatory changes with acute on chronic pancreatitis compared to previous CT that was done on 11/03/2025. She had no evidence of necrosis or fluid collections. Her lipase was 164. She was volume resuscitated emergency department given medication for pain control had improvement and was discharged home. Unfortunately, she had worsening pain over the past few days and then represented to the emergency department with increased pain, nausea, and vomiting with poor p.o. intake. Repeat CT done at this admission showed interval increase in peripancreatic fluid compared to the imaging as obtained 48 hours prior and her lipase was significantly more elevated at 753. She was given 2 L of IV fluids, pain medication, and antiemetics with request for admission. She was admitted to the medical surgical floor. She was maintained on IV fluids, given a clear liquid diet, as needed antiemetics and pain medications were given. She also was found to be hypokalemic and hypomagnesemic on admission and electrolytes were replaced. With her history of alcohol abuse she was questioned on most recent alcohol use and she stated was 3 weeks prior to presentation. With treatment, she slowly improved clinically and her diet was advanced with de-escalation of her pain medication. She was able to get to the point where she was not requiring any IV pain medication only requiring intermittent oral pain medication and tolerating a p.o. diet without any exacerbation of her pain. She did spike a temperature with a Tmax of 102.7 x 1. A UA was obtained as well as a culture I was not profoundly suggestive of infection but did have some leuk esterase and white cells so she was started on ceftriaxone and treated empirically for possible UTI as after ceftriaxone initiation she no longer had fever and her white count resolved. We did send her home empirically on Keflex for another 4 days while her culture is pending given the fact that her fever and leukocytosis resolved after 1 dose of ceftriaxone. Prescription for 3-day course of oxycodone and Keflex were sent to the pharmacy prior to discharge. The patient was discharged home in stable condition on 11/21/2025. We strongly suggest that she avoid any ongoing alcohol use as this will likely exacerbate her pancreatitis. She may benefit from outpatient GI follow-up if she has ongoing flares. She is to follow-up with her primary care within 1 week after discharge. Discharge diagnoses: Recurrent acute on chronic pancreatitis Suspected gram-negative UTI with suprapubic pain, leukocytosis, and fever Hypokalemia Hypomagnesemia History of alcohol abuse CAD Essential hypertension Hyperlipidemia DM-2 GERD Seasonal allergies Anxiety Depression Physical Exam Narrative Patient states she had no pain yesterday but had a little bit of discomfort with eating breakfast. We reassessed her after lunch and she had no pain with lunch and would like to go home. Given the fact that she is tolerating a diet without any significant pain and she is overall clinically much improved we will plan on discharging her home today. Const alert, oriented x3, no apparent distress, average body habitus, no limitations and well nourished Constitutional Narrative: Middle-aged, white female, sitting up in bed, currently appears comfortable, does not look toxic, appears a bit older than stated age General Appearance: cooperative, comfortable, well kempt and well developed Exam Limitations: no limitations HEENT normocephalic, head/scalp atraumatic and moist oral mucous membranes HEENT Narrative: Mallampati 2, no thrush Eyes conjunctivae normal Eyes Narrative: No scleral icterus Neck supple Neck Narrative: Trachea midline Resp normal respiratory effort, normal air movement, no retractions, no use of accessory muscles and clear to auscultation bilaterally Auscultation: Negative for crackles, rhonchi or wheezes Cardio regular rate, regular rhythm, S1 normal heart sound, S2 normal heart sound, no murmurs, no rub, no gallops, no clicks and peripheral pulses 2+ throughout GI normal to inspection, nondistended, normoactive bowel sounds, soft to palpation and non-tender GI Narrative: No significant tenderness noted on palpation today Extremity no clubbing, cyanosis or edema Extremity Narrative: 2+ pedal and radial pulses Skin no jaundice, no petechiae and no mottling Neuro moves all extremities and no focal motor deficits Speech: speech normal Psych mental status grossly normal and affect normal Psych Narrative: Eye contact is good and patient interacts appropriately Weight / BMI Weight Weight: 54.8 kg Body Mass Index (BMI) 20.6 ABG / Lab / Microbiology Data 11/21/25 05:50 11/21/25 05:50 Laboratory: Laboratory Results - last 24 hr 11/20/25 16:23: POC Glucose 119 H 11/20/25 21:03: POC Glucose 156 H 11/21/25 05:50: WBC 10.2, RBC 2.88 L, Hgb 10.0 L, Hct 30.8 L, MCV 106.9 H, MCH 34.7 H, MCHC 32.5, RDW Std Deviation 57.2 H, RDW Coeff of Braxton 14.6, Plt Count 197, MPV 10.5, Sodium 134 L, Potassium 4.3, Chloride 97, Carbon Dioxide 27.5, Anion Gap 10, BUN 10, Creatinine 0.45 L, Estim Creat Clear Calc 132.02, Est GFR (MDRD) Non-Af 119, BUN/Creatinine Ratio 22.1 H, Glucose 93, Calcium 7.9, P hosphorus 2.4 L, Magnesium 1.7, Total Bilirubin 1.28, AST 27, ALT 14, Alkaline Phosphatase 132 H, Total Protein 6.4, Albumin 2.9 L, Globulin 3.4, A lbumin/Globulin Ratio 0.8 L 11/21/25 06:13: POC Glucose 96 11/21/25 11:20: POC Glucose 147 H D/C Instructions Discharge Activity: Return to Normal Activity Return to work on: 11/23/25 DC O2, CPAP, BIPAP Needs Home O2 Discharge instructions: No DC home with Oxygen: No Patient's Goals Of Care - F/U Goals Reviewed Goals of care reviewed with patient: Yes - No change Meaningful Use Info Meaningful Use Meaningful Use Diagnoses (Choose all that apply): None applicable Discharge Plan Admission Admit Date/Time: 11/18/25 09:07 Primary Reason for Your Visit: Abdominal pain Attending Provider: Radha Johnson Primary Care Provider: Abisai Haley Consulting Providers: Arcadio De La Garza Discharge Orders/Prescriptions Prescriptions: New oxycodone 5 mg Tablet 5 mg PO Q4H PRN PRN (Reason: Pain Score 4-10) 3 Days Qty: 12 0RF sennosides [senna] 8.6 mg Tablet 8.6 mg PO BID Qty: 14 0RF cephalexin 500 mg capsule 500 mg PO BID Qty: 8 0RF Continued metformin 500 mg tablet 500 ea PO BID cholecalciferol (vitamin D3) 50 mcg (2,000 unit) capsule 50 mcg PO DAILY aspirin 81 mg Tablet,Chewable 81 mg PO DAILY@0800 Qty: 30 0RF bupropion HCl 150 mg tablet extended release 24 hr 150 mg PO DAILY Patient Comments: take 1 tablet by mouth once daily montelukast [Singulair] 10 mg Tablet 10 mg PO DAILY lisinopril 40 mg tablet 40 mg PO DAILY levocetirizine 5 mg tablet 5 mg PO DAILY fluoxetine 40 mg capsule 40 mg PO DAILY atorvastatin 40 mg tablet 40 mg PO QHS lorazepam 1 mg tablet 1 mg PO BID PRN (Reason: anxiety) pantoprazole 40 mg tablet,delayed release (DR/EC) 40 mg PO DAILY 30 Days Qty: 30 0RF metoprolol succinate 25 mg tablet extended release 24 hr 25 mg PO DAILY Jardiance 25 mg tablet 25 mg PO DAILY buspirone 5 mg tablet 5 mg PO TID PRN (Reason: anxiety) amlodipine 5 mg tablet 5 mg PO DAILY hydroxyzine HCl 10 mg tablet 10 mg PO Q8H PRN (Reason: anxiety) budesonide-formoterol 160-4.5 mcg/actuation HFA aerosol inhaler 2 puff INHALATION BID hydrocodone-acetaminophen 5-325 mg tablet 1 tab PO Q6H PRN PRN (Reason: Pain) 3 Days Qty: 12 0RF potassium chloride 20 mEq tablet,ER particles/crystals 20 meq PO TID Qty: 20 0RF Referrals / Follow Up: Abisai Haley MD [Primary Care Provider, Family Practice] - Within 1 Week Referral Note: At time of discharge the office was already closed. Patient will need to call and make appointment. Disposition Disposition (needs filled in before D/C Order can be placed): Home, Self Care Charges/Coding Visit Charges Inpatient E&M: 62154 Disch Hosp >30min
== END 2025-11-21 15:57 | disposition home or self-care (01) | DRG 282 ==
LOC: ED 08:28 → MS3 09:38
PROVIDERS: Admitting Provider Hospitalist; Emergency Provider Specialist/Technologist Athletic Trainer; PCP Family Medicine; Visit Provider Internal Medicine
DX: K85.90 Acute pancreatitis without necrosis or infection, unspecified (principal); D72.829 Elevated white blood cell count, unspecified; E11.9 Type 2 diabetes mellitus without complications; E78.5 Hyperlipidemia, unspecified; E83.42 Hypomagnesemia; J44.9 Chronic obstructive pulmonary disease, unspecified; F32.A Depression, unspecified; I10 Essential (primary) hypertension; F10.11 Alcohol abuse, in remission; K86.0 Alcohol-induced chronic pancreatitis; E87.6 Hypokalemia; F17.200 Nicotine dependence, unspecified, uncomplicated; K21.9 Gastro-esophageal reflux disease without esophagitis; I25.10 Atherosclerotic heart disease of native coronary artery without angina pectoris; F41.9 Anxiety disorder, unspecified; J30.2 Other seasonal allergic rhinitis; K86.1 Other chronic pancreatitis; Z79.82 Long term (current) use of aspirin; Z79.84 Long term (current) use of oral hypoglycemic drugs; Z79.01 Long term (current) use of anticoagulants; N39.0 Urinary tract infection, site not specified; Z95.5 Presence of coronary angioplasty implant and graft; Z87.19 Personal history of other diseases of the digestive system; R50.9 Fever, unspecified
CPT/HCPCS: 36415; 74177; 80048; 80053; 81001; 82150; 82803; 82962; 83605; 83690; 83735; 84100; 84703; 85025; 85027; 87086; 87088; 94640; 94668; 96374; 96375; 96376; 99284; 99285; 99406; Q9967; A4216; J2405